=== PATIENT | male | born 1985 | race Caucasian/White ===

== ENCOUNTER → 2018-07-25 08:51 | Outpatient (CLI) | payer OTHER, SELFPAY ==
--- NOTE | 2018-07-25 08:59 | XR_ITS ---
EXAM: XR cervical spine 5V HISTORY: ITS.REASON: H/O FX,PAIN,NUMBNESS TO LT ARM ORDERING PHYSICIAN: Jony Conde PATIENT AGE: 33 years COMPARISON: None FINDINGS: There are no previous exams available for comparison. There is an anterior bone plate stabilizing a fused segment of cervical spine from C3-C6. There are 2 screws within the vertebral body of C3 and 2 screws within the vertebral body of C6. There is good alignment and no evidence of fracture. There is mild foraminal narrowing on the right at C4-C5. No cervical ribs or other significant anomalies. IMPRESSION: Prior anterior cervical disc fusion from C3 to C6 with good alignment and mild foraminal narrowing at C5 on the right
== END ==
PROVIDERS: PCP Social Worker; Visit Provider Social Worker
DX: M79.602 Pain in left arm (principal); R20.0 Anesthesia of skin
CPT/HCPCS: 72050

== ENCOUNTER → 2018-08-06 13:11 | Outpatient (CLI) | payer OTHER, SELFPAY ==
--- NOTE | 2018-08-06 13:20 | XR_ITS ---
XR foot wt bearing LT 3V HISTORY: Foot pain ITS.REASON: all 3 views weightbearing ORDERING PHYSICIAN: Nusrat Flores MD PATIENT AGE: 33 years COMPARISON: None FINDINGS: No fracture or dislocation. No lytic or blastic change. There is normal mineralization.. The joint spaces are well-preserved. No significant degenerative/arthritic changes. No erosive changes evident. Flexion deformity second toe IMPRESSION: Flexion deformity second toe otherwise negative
--- NOTE | 2018-08-06 13:20 | XR_ITS ---
XR foot wt bearing RT 3V HISTORY: Foot pain ITS.REASON: all 3 views weightbearing ORDERING PHYSICIAN: Nusrat Flores MD PATIENT AGE: 33 years COMPARISON: None FINDINGS: No fracture or dislocation. No lytic or blastic change. There is normal mineralization.. The joint spaces are well-preserved. No significant degenerative/arthritic changes. No erosive changes evident. Flexion deformity involves the second toe IMPRESSION: Flexion deformity of the second toe otherwise negative
== END ==
PROVIDERS: PCP Social Worker; Visit Provider Orthopaedic Surgery
DX: M79.672 Pain in left foot (principal); M79.671 Pain in right foot
CPT/HCPCS: 73630

== ENCOUNTER 2018-08-06 13:36 | Outpatient (RCR) | payer OTHER, SELFPAY | END 2018-08-06 13:40 | disposition home or self-care (01) | LOC: PT 13:36 | PROVIDERS: Visit Provider Orthopaedic Surgery | DX: S93.602A Unspecified sprain of left foot, initial encounter (principal) ==

== ENCOUNTER → 2018-08-07 11:07 | Outpatient (CLI) | payer OTHER, SELFPAY ==
--- NOTE | 2018-08-07 11:27 | CT_ITS ---
CT foot LT wo con INDICATION: Foot injury with pain ITS.REASON: Lisfranc injury; without contrast ORDERING PHYSICIAN: Nusrat Flores MD PATIENT AGE: 33 years COMPARISON: 08/06/2018 TECHNIQUE: Axial images are obtained without contrast. Sagittal and coronal reformatted images are reviewed as well. All CT scans at the facility use one or more dose reduction, viz: automated exposure control, ma/kV adjustment per patient size (including targeted exams where dose is matched to indication, i.e. head), or iterative reconstruction technique. FINDINGS: There is an oblique fracture involving the base and medial aspect of the second metatarsal. There is mild lateral displacement of the distal fracture fragment by 3 to 4 mm with widening of the space between the base of the first and second metatarsals. That space measures 5 mm. The fracture line is oblique in nature and extends into the articular surface at the base of the second metatarsal. No other fractures are evident. IMPRESSION: Oblique fracture present at the base of the second metatarsal with mild lateral displacement of the distal fracture fragment and widening of the space between the base of the first and second metatarsal consistent with a Lisfranc injury CT of Lisfranc injuries
== END ==
PROVIDERS: PCP Social Worker; Visit Provider Orthopaedic Surgery
DX: S99.922A Unspecified injury of left foot, initial encounter (principal)
CPT/HCPCS: 73700

== ENCOUNTER → 2018-08-21 08:24 | Outpatient (CLI) | payer OTHER, SELFPAY ==
--- NOTE | 2018-08-21 08:29 | XR_ITS ---
XR foot wt bearing LT 3V HISTORY: Follow-up fracture ITS.REASON: pain ORDERING PHYSICIAN: Genesis Davis DPM PATIENT AGE: 33 years COMPARISON: 08/07/2018 FINDINGS: Study is obtained through a cast. Avulsion fractures noted at the base of the second metatarsal medially with mild widening of the first metatarsal interspace as before not significant change. No other significant anomalies are evident. IMPRESSION: Overall no change in the Lisfranc injury at the base of the second metatarsal with mild widening of the first inner metatarsal space
== END ==
PROVIDERS: PCP Social Worker; Visit Provider Podiatrist
DX: M79.672 Pain in left foot (principal); M79.671 Pain in right foot
CPT/HCPCS: 73630

== ENCOUNTER → 2018-09-11 09:23 | Outpatient (CLI) | payer OTHER, SELFPAY ==
--- NOTE | 2018-09-11 09:25 | XR_ITS ---
XR foot wt bearing LT 3V HISTORY: Pain, follow-up fracture ITS.REASON: fracture follow up ORDERING PHYSICIAN: Genesis Davis DPM PATIENT AGE: 33 years COMPARISON: 08/21/2018 FINDINGS: The cast has been removed. Avulsion fracture once again noted base of the second metatarsal with mild widening of the first intermetatarsal space not significant change. IMPRESSION: Interval removal of the cast otherwise no change in the avulsion fracture at the base of the second metatarsal with mild widening of the first intermetatarsal space as previously described
== END ==
PROVIDERS: PCP Social Worker; Visit Provider Podiatrist
DX: S93.622A Sprain of tarsometatarsal ligament of left foot, initial encounter (principal); T14.8XXA Other injury of unspecified body region, initial encounter
CPT/HCPCS: 73630

== ENCOUNTER → 2018-09-12 16:18 | Outpatient (CLI) | payer OTHER, SELFPAY ==
--- NOTE | 2018-09-12 16:25 | MR_ITS ---
MR foot LT wo/w con CLINICAL INDICATION: ITS.REASON: fracture ORDERING PHYSICIAN: Genesis Davis DPM PATIENT AGE: 33 years Comparison: 08/07/2018, 09/11/2018 TECHNIQUE: Routine multiplanar multiecho sequences are performed without and with gadolinium enhancement FINDINGS: Patient has a known fracture at the base of the second metatarsal with widening of the first intermetatarsal space. This fracture is once again noted on the MRI with no bony union apparent. Increased T2 signal present at the base of the second metatarsal at the fracture site. The fracture is oblique in nature and extends into the articular surface at the base of the second metatarsal, intermediate cuneiform space. Evaluation of the Lisfranc ligamentous complex shows fat the dorsal ligament appears to be intact. There does appear to be tear of the interosseous component. The plantar component is not identified and may also be torn. The anterior tibiofibular ligament is not identified and may be torn. The talofibular ligaments appear intact. The deltoid ligament also appears intact. No tendinous abnormalities are evident. IMPRESSION: 1. Mildly displaced intra-articular fracture involves the base of the second metatarsal with no evidence of bony union. 2. There does appear to be tear of the interosseous component of the Lisfranc ligament with also suspected tear of the plantar component of the Lisfranc ligament. The dorsal component does appear to be intact
== END ==
PROVIDERS: PCP Social Worker; Visit Provider Podiatrist
DX: S93.622A Sprain of tarsometatarsal ligament of left foot, initial encounter (principal)
CPT/HCPCS: 73720; A9576

== ENCOUNTER → 2019-05-08 13:21 | Outpatient (CLI) | payer OTHER, SELFPAY ==
--- NOTE | 2019-05-08 13:24 | XR_ITS ---
PROCEDURE: XR CHEST 2V CLINICAL HISTORY: H/O TRAUMA COMPARISON: No exams were available for comparison FINDINGS: The cardiomediastinal silhouette and pulmonary vascularity are within normal limits. The lungs are clear without infiltrates, suspicious nodules, or pleural effusions. No acute bony abnormalities. IMPRESSION: No acute findings. Dictated by: Jaspreet Damon 05/08/2019 13:36 Electronically signed by Jaspreet Damon in [facility] 05/08/2019 13:36
== END ==
PROVIDERS: PCP Social Worker; Visit Provider Social Worker
DX: Z87.828 Personal history of other (healed) physical injury and trauma (principal)
CPT/HCPCS: 71046

== ENCOUNTER 2019-08-06 09:30 | Outpatient (RCR) | payer OTHER, SELFPAY | END 2019-08-06 09:35 | disposition home or self-care (01) | LOC: PT 09:30 | PROVIDERS: PCP Social Worker; Visit Provider Social Worker | DX: R07.89 Other chest pain (principal) | CPT/HCPCS: 97035; 97140; 97163; 97164 ==

== ENCOUNTER 2020-05-17 16:56 | Emergency (ER) | payer OTHER, SELFPAY ==
--- NOTE | 2020-05-17 18:11 | XR_ITS ---
PROCEDURE: XR CHEST PORTABLE CLINICAL HISTORY: pos covid Cough, Covid19 positive COMPARISON: CR XR CHEST 2V from 05/08/2019 FINDINGS: The cardiomediastinal silhouette and pulmonary vascularity are within normal limits. Faint opacities noted in the right upper lobe at the 2nd interspace anteriorly and in the left midlung overlying the 4th rib anteriorly. Possibly due to developing areas of infiltrate or even pulmonary nodular opacities. Follow-up suggested. No acute bony abnormalities. IMPRESSION: Faint bilateral opacities which could be due to developing pneumonia. Suggest follow-up as developing nodular lesions are also considered. Dictated by: Nahum Shea MD 05/18/2020 05:39 Nahum Shea MD in [facility] 05/18/2020 05:39
[2020-05-17 18:30] VITALS: BP 142/98; PULSE 87; RESP 19; TEMP 36.8; O2SAT 98; BMI 30.4
--- NOTE | 2020-05-17 18:44 | HMH.EDUTC ---
[facility] [place] Clinical Impression: Sinusitis Qualifiers: Sinusitis location: unspecified location Chronicity: unspecified Qualified Code(s): J32.9 - Chronic sinusitis, unspecified Disposition: Home, Self-Care Condition on Discharge: Good Instructions: Sinusitis, DI for Sinusitis, Azithromycin Additional Instructions: *Monitor Temp, Over the counter Motrin or Tylenol as directed/as needed Tylenol every 4 hours and Motrin every 6 hours (as long as your family doctor has told you that you can take it) for fever or pain. and straight to ER if unable to lower temp less than 101.0 after medication given *Warm salt water gargles may help to soothe the throat *Throat Lozenges *Warm fluids like tea with honey may help to soothe the throat *Sleep elevated *Humidifier/Vaporizer Follow up IMMEDIATELY for new or worsening symptoms or no Noticeable improvement over the next 48-72 hours. 911 for difficulty breathing or swallowing You were tested for today for COVID19 your test result should be back in the next 24-48 hours, you may call to the [facility] to see if your test results are back in the next 48 hours [phone] [facility] hours are 9am-9pm You was given a handout with instructions for Self Quarantine and Self isolation for while you wait on test results and what to do if they are positive If you are positive the Health Dept will be contacting you also Prescriptions: dexAMETHasone [Dexamethasone] 2 mg PO DAILY 5 Days #5 tab Transmission Status: Received by [facility] #[id number] Azithromycin [Z-Luis A 250mg Tab] 250 mg PO DIRECTED #6 tab Transmission Status: Received by [facility] #[id number] Referrals: Jony Conde [Primary Care Provider] - As needed Time of Disposition: 18:53 Medical Decision Making - Kirstofer Inquiry Pt receiving controlled substance: No Kristofer was queried for this patient: No Vital Signs: 05/17/20 18:30 05/17/20 18:59 Temperature 98.3 F 98.3 F Temperature Source Oral Pulse Rate 87 Pulse Rate [Right Brachial] 87 Respiratory Rate 19 19 Blood Pressure 142/98 H Blood Pressure [Right Arm] 142/98 H Blood Pressure Mean [Right Arm] 112 Blood Pressure Source [Right Arm] Automatic Cuff Blood Pressure Position [Right Arm] Sitting 02 Sat by Pulse Oximetry 98 Oxygen Delivery Method Room Air Orders (Tests/Meds): ORDERS Category Date Time Status Portable CXR [XR chest portable] Stat Exams 05/17/20 18:11 Taken - Radiology Data #1 Image(s): Chest Image Reviewed: Yes I reviewed the patient's radiology image w/the ED provider Preliminary Findings: Normal/NAD Medical Decision Narrative: Medication discussed with Oneil [facility] [place] - General Stated complaint: COVID TEST, Cough, chest congestion Time Seen by Provider: 05/17/20 18:44 Mode of Arrival: Ambulatory Source of Information: Patient Limitations: No Limitations Description of Symptoms (Recalled from Triage Doc. by RN): PATIENT C/O COUGH CONGESTION X 1 WEEK. TESTED POSITIVE FOR COVID ON 05/02. HEENT Symptoms (Recalled from RN notes): No Resp Symptoms (Recalled from RN notes): No Skin Symptoms (Recalled from RN notes): No MS Symptoms (Recalled from RN notes): No Functional Status (Recalled from RN notes): WNL - History of Present Illness Provider Complaint: Patient states that he recently tested positive for COVID States that he has had worsening sinus pain and pressure with yellowish colored drainage and feels like it is trying to move more into his chest Due to having COVID he was worried that it may turn into COVID pnemonia so he come in to get checked and get checked for sinus pain and pressure - Related Data Home Medications Medication Instructions Recorded Confirmed atorvastatin 10 mg tablet PO 30 Days #30 tab 08/21/18 09/11/18 losartan 100 mg tablet PO 30 Days #30 tab 08/21/18 09/11/18 Previous Rx's Medication Instructions Recorded diclofenac sodium 75 mg 75 mg PO BID #30 tab 02/06/19 tablet,d
[2020-05-17 18:59] VITALS: BP 142/98; PULSE 87; RESP 19; TEMP 36.8; O2SAT 98
== END 2020-05-17 19:00 | disposition home or self-care (01) ==
PROVIDERS: Emergency Provider Nurse Practitioner; PCP Social Worker
DX: J32.9 Chronic sinusitis, unspecified (principal); U07.1 COVID-19; I10 Essential (primary) hypertension; E78.5 Hyperlipidemia, unspecified; Z79.899 Other long term (current) drug therapy
CPT/HCPCS: 71045; 99202; G0463

== ENCOUNTER → 2020-09-17 15:26 | Outpatient (CLI) | payer OTHER, SELFPAY | PROVIDERS: PCP Social Worker; Visit Provider Social Worker | DX: G47.33 Obstructive sleep apnea (adult) (pediatric) (principal) | CPT/HCPCS: 95806 ==

== ENCOUNTER 2020-11-03 08:59 | Emergency (ER) | payer OTHER, SELFPAY ==
[2020-11-03 09:00] VITALS: BP 139/92; PULSE 87; RESP 21; TEMP 36.6; O2SAT 97; BMI 31.0
[2020-11-03 09:20] LABS: Adenovirus,PCR Not Detected (NotDetected); Bordetella Pertussis Not Detected (NotDetected); Chlamydophila Pneumoniae, PCR Not Detected (NotDetected); Coronavirus 19, PCR Not Detected (NotDetected); Coronavirus 229E Not Detected (NotDetected); Coronavirus NL63 Not Detected (NotDetected); Coronavirus OC43 Not Detected (NotDetected); Coronovirus HKU1,PCR Not Detected (NotDetected); Human Metapneumovirus Not Detected (NotDetected); Influenza A, PCR Not Detected (NotDetected); Influenza AH1, 2009 Not Detected (NotDetected); Influenza AH1, PCR Not Detected (NotDetected); Influenza AH3,PCR Not Detected (NotDetected); Influenza B, PCR Not Detected (NotDetected); Mycoplasma Pneumoniae, PCR Not Detected (NotDetected); Parainfluenza 1, PCR Not Detected (NotDetected); Parainfluenza 2, PCR Not Detected (NotDetected); Parainfluenza 3, PCR Not Detected (NotDetected); Parainfluenza 4, PCR Not Detected (NotDetected); Respiratory Syncytial Virus Not Detected (NotDetected); Rhinovirus/Enterovirus Not Detected (NotDetected)
--- NOTE | 2020-11-03 09:24 | HMH.EDUTC ---
[facility] [place] Clinical Impression: Sinusitis Qualifiers: Sinusitis location: unspecified location Chronicity: acute Recurrence: non-recurrent Qualified Code(s): J01.90 - Acute sinusitis, unspecified Otitis media Qualifiers: Otitis media type: suppurative Chronicity: acute Laterality: bilateral Recurrence: non-recurrent Spontaneous tympanic membrane rupture: without spontaneous rupture Qualified Code(s): H66.003 - Acute suppurative otitis media without spontaneous rupture of ear drum, bilateral Disposition: Home, Self-Care Condition on Discharge: Good Instructions: Middle Ear Infection, DI for Sinusitis, Preventing the Spread of Coronavirus Discharge Instructions Additional Instructions: Drink plenty of fluids. Take tylenol or ibuprofen for pain or fever. Take the medications as directed. Follow up with your regular doctor. GO TO THE ER FOR ANY WORSENING SYMPTOMS Prescriptions: Ondansetron [Zofran 4mg ODT] 4 mg PO Q8HP PRN #12 tab.rapdis PRN Reason: Nausea Transmission Status: Received by [facility] # methylPREDNISolone [Medrol] 4 mg PO DIRECTED 6 Days #21 tab.ds.pk Transmission Status: Received by [facility] # Azithromycin [Z-Luis A 250mg Tab*] 250 mg PO UD DOSE PK #6 tab Transmission Status: Received by [facility] # Referrals: Jony Conde [Primary Care Provider] - Forms: Work/School Release Time of Disposition: 09:32 Medical Decision Making - Medical Records Medical records reviewed: No: I reviewed the patient's medical records. - Kristofer Inquiry Pt receiving controlled substance: No Vital Signs: 11/03/20 09:00 11/03/20 09:33 Temperature 97.9 F 97.9 F Temperature Source Oral Pulse Rate 87 Pulse Rate [Right Brachial] 87 Respiratory Rate 21 21 Blood Pressure 139/92 H Blood Pressure [Right Arm] 139/92 H Blood Pressure Mean [Right Arm] 107 Blood Pressure Source [Right Arm] Automatic Cuff Blood Pressure Position [Right Arm] Sitting 02 Sat by Pulse Oximetry 97 Oxygen Delivery Method Room Air - Lab Data Lab Results 11/03/20 09:05: Chlamy pneumoniae PCR Not detected, Adenovirus (PCR) Not detected, B. pertussis DNA (PCR) Not detected, Coronavirus OC43 (PCR) Not detected, Coronavirus HKU1 (PCR) Not detected, Coronavirus 229E (PCR) Not detected, SARS-CoV-2 (PCR) Not detected, Coronavirus NL63 (PCR) Not detected, Human Metapneumovir PCR Not detected, Influenza A (H1) PCR Not detected, Influ A (H1N1/09) PCR Not detected, Influenza A (H3) PCR Not detected, Influenza Type A (PCR) Not detected, Influenza Type B (PCR) Not detected, M. pneumoniae (PCR) Not detected, Parainfluenza 1 (PCR) Not detected, Parainfluenza 2 (PCR) Not detected, Parainfluenza 3 (PCR) Not detected, Parainfluenza 4 (PCR) Not detected, RSV (PCR) Not detected, Entero/Rhino (PCR) Not detected [facility] - General Stated complaint: nausea, muscle pain Time Seen by Provider: 11/03/20 09:24 Mode of Arrival: Ambulatory Source of Information: Patient Limitations: No Limitations Description of Symptoms (Recalled from Triage Doc. by RN): PATIENT C/O MOTION SICKNESS, TINNITUS, SOA, DIARRHEA, RUNNY NOSE, AND BODY ACHES X 3 DAYS. STATES HE FEELS SIMILAR TO HOW DID WHEN HE PREVIOUSLY HAD COVID. RECENT TRAVEL TO [place] VIA PLANE HEENT Symptoms (Recalled from RN notes): Yes Resp Symptoms (Recalled from RN notes): Yes Skin Symptoms (Recalled from RN notes): No MS Symptoms (Recalled from RN notes): No Functional Status (Recalled from RN notes): WNL - History of Present Illness Provider Complaint: He states that for the past 4 days he has had bilateral ear pain and pressure. He has also had diarrhea and nausea. He had covid about 6 months ago and he states that he feels a lot like he did then. He denies any shortness of breath and chest pain. - Related Data Home Medications Medication Instructions Recorded Confirmed atorvastatin 10 mg tablet 5 mg PO DAILY 30 Days
[2020-11-03 09:33] VITALS: BP 139/92; PULSE 87; RESP 21; TEMP 36.6; O2SAT 97
== END 2020-11-03 09:36 | disposition home or self-care (01) ==
LOC: UTC 09:02
PROVIDERS: Emergency Provider Nurse Practitioner Family; PCP Social Worker
DX: J01.90 Acute sinusitis, unspecified (principal); H66.003 Acute suppurative otitis media without spontaneous rupture of ear drum, bilateral; I10 Essential (primary) hypertension; Z20.822 Contact with and (suspected) exposure to COVID-19; E78.5 Hyperlipidemia, unspecified; Z79.899 Other long term (current) drug therapy
CPT/HCPCS: 87581; 87633; 87798; 99202; G0463

== ENCOUNTER 2020-12-01 14:45 | Emergency (ER) | payer OTHER, SELFPAY ==
[2020-12-01 14:50] VITALS: BP 169/104; PULSE 94; RESP 16; TEMP 36.6; O2SAT 100; BMI 31.0
--- NOTE | 2020-12-01 15:06 | HMH.EDUTC ---
[facility] [place] Clinical Impression: Vertigo Serous otitis media Qualifiers: Chronicity: acute Laterality: bilateral Recurrence: non-recurrent Qualified Code(s): H65.03 - Acute serous otitis media, bilateral Disposition: Home, Self-Care Condition on Discharge: Good Instructions: Middle Ear Infection Additional Instructions: Drink plenty of fluids. Take tylenol or ibuprofen for pain or fever. Take the medications as directed. Follow up with your regular doctor. GO TO THE ER FOR ANY WORSENING SYMPTOMS Prescriptions: Meclizine HCl [Antivert 25mg tablet] 25 mg PO Q6HP PRN #30 tab PRN Reason: Dizziness Transmission Status: Received by [facility] methylPREDNISolone [Medrol] 4 mg PO DIRECTED 6 Days #21 tab.ds.pk Transmission Status: Received by [facility] Referrals: Jony Conde [Primary Care Provider] - Forms: Work/School Release Time of Disposition: 15:15 Medical Decision Making - Medical Records Medical records reviewed: No: I reviewed the patient's medical records. - Kristofer Inquiry Pt receiving controlled substance: No Vital Signs: 12/01/20 14:50 12/01/20 15:16 Temperature 97.8 F 97.8 F Temperature Source Oral Pulse Rate 94 H Pulse Rate [Left] 94 H Respiratory Rate 16 16 Blood Pressure 169/104 H Blood Pressure [Right Arm] 169/104 H Blood Pressure Mean [Right Arm] 125 Blood Pressure Source [Right Arm] Automatic Cuff 02 Sat by Pulse Oximetry 100 [facility] [place]PI - General Stated complaint: motion sickness Time Seen by Provider: 12/01/20 15:06 Mode of Arrival: Ambulatory Source of Information: Patient Limitations: No Limitations Description of Symptoms (Recalled from Triage Doc. by RN): pt c/o of bilateral ear popping and motion sickness. pt states he had an ear infection when the same thing happened about a month ago. HEENT Symptoms (Recalled from RN notes): Yes (pt c/o dizziness and bilateral ear aches) Resp Symptoms (Recalled from RN notes): No Skin Symptoms (Recalled from RN notes): No MS Symptoms (Recalled from RN notes): No Functional Status (Recalled from RN notes): na - History of Present Illness Provider Complaint: He states that since earlier today, he has had dizziness and popping of his ears. He denies any ear pain. He had similar symptoms about a month ago. He took antibiotics and steroids then and he got better. - Related Data Home Medications Medication Instructions Recorded Confirmed atorvastatin 10 mg tablet 5 mg PO DAILY 30 Days #30 tab 08/21/18 11/03/20 losartan 100 mg tablet 100 mg PO DAILY 30 Days #30 tab 08/21/18 11/03/20 amlodipine 2.5 mg tablet 2.5 mg PO DAILY 10/20/20 11/03/20 omeprazole 20 mg tablet,delayed 20 mg PO DAILY 10/20/20 11/03/20 release testosterone cypionate 200 mg/mL 200 mg IM WEEKLY each 10/20/20 11/03/20 intramuscular kit Previous Rx's Medication Instructions Recorded Azithromycin [Z-Luis A 250mg Tab*] 250 mg PO UD DOSE PK #6 tab 11/03/20 Ondansetron [Zofran 4mg ODT] 4 mg PO Q8HP PRN #12 tab.rapdis 11/03/20 methylPREDNISolone [Medrol] 4 mg PO DIRECTED 6 Days #21 11/03/20 tab.ds.pk Meclizine HCl [Antivert 25mg 25 mg PO Q6HP PRN #30 tab 12/01/20 tablet] methylPREDNISolone [Medrol] 4 mg PO DIRECTED 6 Days #21 12/01/20 tab.ds.pk Allergies Allergy/AdvReac Type Severity Reaction Status Date / Time No Known Allergies Allergy Verified 12/01/20 14:48 - Worker's Comp Is this a Worker's Comp case?: No [facility] History - Hepatitis A Screen Drug use history?: No High risk sexual behaviors?: No History of sexually transmitted infection?: No Currently employed?: No Childcare worker?: No Do you have indoor plumbing?: Yes Do you have electricity?: Yes Attestation statement:: This patient has been screened for Hepatitis A risk factors. I have reviewed the patient's past medical history: Yes Medical History: Reports:: Hyperlipidemia, Hypertension Other Surgeries: Yes: Othe
[2020-12-01 15:16] VITALS: BP 169/104; PULSE 94; RESP 16; TEMP 36.6; O2SAT 99
== END 2020-12-01 15:18 | disposition home or self-care (01) ==
PROVIDERS: Emergency Provider Nurse Practitioner Family; PCP Social Worker
DX: H65.03 Acute serous otitis media, bilateral (principal); I10 Essential (primary) hypertension; E78.5 Hyperlipidemia, unspecified
CPT/HCPCS: 99202; G0463

== ENCOUNTER → 2021-05-31 14:31 | Outpatient (CLI) | payer OTHER, SELFPAY | PROVIDERS: PCP Social Worker; Visit Provider Nurse Practitioner | DX: U07.1 COVID-19 (principal) | CPT/HCPCS: C9803; U0003; U0005 ==

== ENCOUNTER → 2022-07-14 08:33 | Outpatient (CLI) | payer OTHER, SELFPAY ==
[2022-07-14 09:35] LABS: INR 1.43 (0.9-1.1); Prothrombin Time 15.1 seconds (10.1-12.5)
[2022-07-14 10:11] LABS: Basophils # 0.1 K/mm3 (0-0.2); Basophils % 1.1 % (0.1-2.0); Eosinophils # 0.2 K/mm3 (0.0-0.4); Eosinophils % 2.3 % (0.1-12.0); Hematocrit 37.6 % (42.0-52.0); Lymphocytes # 0.4 K/mm3 (0.7-4.5); Lymphocytes % 4.9 % (10-50); Mean Corpuscular HGB Conc 31.9 g/dL (31.8-35.4); Mean Corpuscular Hemoglobin 35.8 pg (27.0-31.2); Mean Corpuscular Volume 112.5 fl (80-94); Mean Platelet Volume 9.6 fl (7.4-10.4); Monocytes # 0.8 K/mm3 (0.1-1.0); Monocytes % 9.7 % (1.7-9.3); Neutrophils # 6.7 K/mm3 (1.8-7.8); Platelet Count 199 K/mm3 (142-424); Red Blood Count 3.34 M/mm3 (4.60-6.20); Red Cell Distribution Width 20.9 % (11.5-17.5); White Blood Count 8.1 K/mm3 (4.8-10.8)
[2022-07-14 10:12] LABS: Alanine Aminotransferase 44 U/L (12-78); Albumin Level 3.4 g/dl (3.5-5.0); Alkaline Phosphatase 127 U/L (38-126); Anion Gap 11.2 mEq/L (5-15); Aspartate Amino Transferase 94 U/L (17-59); Blood Urea Nitrogen 19 mg/dl (9-20); Calcium 9.5 mg/dl (8.4-10.2); Carbon Dioxide 24 mmol/L (22.0-30.0); Chloride 104 mmol/L (98-107); Estimated Glomerular Filt Rate 56 ml/min (>60); GFR (African American) 68 ML/MIN (>60); Globulin 3.5 g/dL (1.3-3.2); Glucose 92 mg/dl (74-100); Potassium 4.2 mmoL/L (3.5-5.1); Sodium 135 mmol/L (136-145); Total Protein,Serum 6.9 g/dl (6.3-8.2)
== END ==
PROVIDERS: PCP Social Worker; Visit Provider Nurse Practitioner
DX: K70.30 Alcoholic cirrhosis of liver without ascites (principal)
CPT/HCPCS: 36415; 80053; 85025; 85610

== ENCOUNTER → 2022-08-08 08:36 | Outpatient (CLI) | payer OTHER, SELFPAY ==
[2022-08-08 09:14] LABS: Hematocrit 36.9 % (42.0-52.0); Mean Corpuscular HGB Conc 32.6 g/dL (31.8-35.4); Mean Corpuscular Hemoglobin 34.6 pg (27.0-31.2); Mean Corpuscular Volume 106.3 fl (80-94); Platelet Count 129 K/mm3 (142-424); Red Blood Count 3.47 M/mm3 (4.60-6.20); Red Cell Distribution Width 18.5 % (11.5-17.5); White Blood Count 7.2 K/mm3 (4.8-10.8)
[2022-08-08 09:23] LABS: INR 1.34 (0.9-1.1); Prothrombin Time 14.2 seconds (10.1-12.5)
[2022-08-08 09:46] LABS: Alanine Aminotransferase 25 U/L (12-78); Albumin Level 3.5 g/dl (3.5-5.0); Albumin/Globulin Ratio 1.1 (1.1-1.8); Alkaline Phosphatase 151 U/L (38-126); Anion Gap 12.9 mEq/L (5-15); Aspartate Amino Transferase 53 U/L (17-59); Bilirubin,Total 3.1 mg/dl (0.2-1.3); Blood Urea Nitrogen 14 mg/dl (9-20); Calcium 8.9 mg/dl (8.4-10.2); Carbon Dioxide 25 mmol/L (22.0-30.0); Chloride 105 mmol/L (98-107); Estimated Glomerular Filt Rate 56 ml/min (>60); GFR (African American) 68 ML/MIN (>60); Globulin 3.2 g/dL (1.3-3.2); Glucose 97 mg/dl (74-100); Potassium 3.9 mmoL/L (3.5-5.1); Sodium 139 mmol/L (136-145); Total Protein,Serum 6.7 g/dl (6.3-8.2)
== END ==
PROVIDERS: PCP Social Worker; Visit Provider Student in an Organized Health Care Education/Training Program
DX: K72.90 Hepatic failure, unspecified without coma (principal)
CPT/HCPCS: 36415; 80053; 85014; 85018; 85048; 85049; 85610; 85730

== ENCOUNTER → 2022-08-18 09:42 | Outpatient (CLI) | payer OTHER, SELFPAY ==
[2022-08-18 09:59] LABS: Basophils % 0.8 % (0.1-2.0); Eosinophils # 0.1 K/mm3 (0.0-0.4); Hematocrit 38.8 % (42.0-52.0); Hemoglobin 12.5 g/dL (14.1-18.0); Lymphocytes # 1.2 K/mm3 (0.7-4.5); Lymphocytes % 21.7 % (10-50); Mean Corpuscular HGB Conc 32.2 g/dL (31.8-35.4); Mean Corpuscular Hemoglobin 34.2 pg (27.0-31.2); Mean Corpuscular Volume 106.2 fl (80-94); Mean Platelet Volume 8.9 fl (7.4-10.4); Monocytes # 0.4 K/mm3 (0.1-1.0); Monocytes % 6.8 % (1.7-9.3); Neutrophils # 3.8 K/mm3 (1.8-7.8); Neutrophils % 68.7 % (37.0-80.0); Platelet Count 132 K/mm3 (142-424); Red Blood Count 3.66 M/mm3 (4.60-6.20); Red Cell Distribution Width 17.7 % (11.5-17.5); White Blood Count 5.5 K/mm3 (4.8-10.8)
[2022-08-18 10:12] LABS: INR 1.19 (0.9-1.1); Prothrombin Time 12.7 seconds (10.1-12.5)
[2022-08-18 10:20] LABS: Chloride 106 mmol/L (98-107)
[2022-08-18 10:21] LABS: Potassium 3.7 mmoL/L (3.5-5.1); Sodium 141 mmol/L (136-145)
[2022-08-18 10:23] LABS: Alanine Aminotransferase 28 U/L (12-78); Aspartate Amino Transferase 56 U/L (17-59); Blood Urea Nitrogen 28 mg/dl (9-20); Estimated Glomerular Filt Rate 56 ml/min (>60); GFR (African American) 68 ML/MIN (>60)
[2022-08-18 10:24] LABS: Albumin Level 3.8 g/dl (3.5-5.0); Albumin/Globulin Ratio 1.2 (1.1-1.8); Alkaline Phosphatase 136 U/L (38-126); Anion Gap 12.7 mEq/L (5-15); Bilirubin,Total 3.2 mg/dl (0.2-1.3); Calcium 10.9 mg/dl (8.4-10.2); Carbon Dioxide 26 mmol/L (22.0-30.0); Globulin 3.3 g/dL (1.3-3.2); Glucose 94 mg/dl (74-100); Total Protein,Serum 7.1 g/dl (6.3-8.2)
[2022-08-19 08:37] LABS: AFP, Tumor Marker 5.3 ng/mL (0.0-6.9)
== END ==
PROVIDERS: PCP Social Worker; Visit Provider Nurse Practitioner
DX: K70.30 Alcoholic cirrhosis of liver without ascites (principal)
CPT/HCPCS: 36415; 80053; 82105; 85025; 85610

== ENCOUNTER → 2022-08-22 15:43 | Outpatient (CLI) | payer OTHER, SELFPAY ==
[2022-08-22 16:49] LABS: Hematocrit 35.9 % (42.0-52.0); Hemoglobin 11.6 g/dL (14.1-18.0); Mean Corpuscular HGB Conc 32.3 g/dL (31.8-35.4); Mean Corpuscular Hemoglobin 33.4 pg (27.0-31.2); Mean Corpuscular Volume 103.4 fl (80-94); Platelet Count 112 K/mm3 (142-424); Red Blood Count 3.47 M/mm3 (4.60-6.20); Red Cell Distribution Width 17.3 % (11.5-17.5); White Blood Count 5.9 K/mm3 (4.8-10.8)
[2022-08-22 17:01] LABS: Chloride 102 mmol/L (98-107); Potassium 4.5 mmoL/L (3.5-5.1); Sodium 138 mmol/L (136-145)
[2022-08-22 17:03] LABS: Alanine Aminotransferase 26 U/L (12-78); Aspartate Amino Transferase 55 U/L (17-59); Blood Urea Nitrogen 33 mg/dl (9-20); Estimated Glomerular Filt Rate 45 ml/min (>60); GFR (African American) 55 ML/MIN (>60)
[2022-08-22 17:04] LABS: Albumin Level 3.7 g/dl (3.5-5.0); Albumin/Globulin Ratio 1.2 (1.1-1.8); Alkaline Phosphatase 112 U/L (38-126); Anion Gap 13.5 mEq/L (5-15); Bilirubin,Total 3.4 mg/dl (0.2-1.3); Calcium 10.5 mg/dl (8.4-10.2); Carbon Dioxide 27 mmol/L (22.0-30.0); Globulin 3.1 g/dL (1.3-3.2); Glucose 92 mg/dl (74-100); Prothrombin Time 14.8 seconds (10.1-12.5); Total Protein,Serum 6.8 g/dl (6.3-8.2)
== END ==
PROVIDERS: PCP Social Worker; Visit Provider Student in an Organized Health Care Education/Training Program
DX: K72.90 Hepatic failure, unspecified without coma (principal)
CPT/HCPCS: 36415; 80053; 85014; 85018; 85048; 85049; 85610

== ENCOUNTER → 2022-08-23 10:23 | Outpatient (CLI) | payer OTHER, SELFPAY ==
[2022-08-23 10:59] LABS: Ammonia 109 umol/L (9-30)
[2022-08-23 11:01] LABS: Activated Partial Thrombo Time 31.6 seconds (22.8-30.6)
== END ==
PROVIDERS: PCP Social Worker; Visit Provider Student in an Organized Health Care Education/Training Program
DX: K72.90 Hepatic failure, unspecified without coma (principal)
CPT/HCPCS: 82140; 85730

== ENCOUNTER 2022-08-31 11:28 | Outpatient (CLI) | payer OTHER, SELFPAY ==
[2022-08-31] VITALS (10 sets, daily range): BP systolic 111–137; BP diastolic 60–95; PULSE 84–92; RESP 16–18; TEMP 36.4; O2SAT 99
== END 2022-08-31 16:36 | disposition home or self-care (01) ==
LOC: INF 11:31
PROVIDERS: PCP Social Worker; Visit Provider Student in an Organized Health Care Education/Training Program
DX: N17.9 Acute kidney failure, unspecified (principal)
CPT/HCPCS: 96365; 96366; P9047

== ENCOUNTER → 2022-09-04 11:14 | Outpatient (CLI) | payer OTHER, SELFPAY ==
[2022-09-04 12:49] LABS: Basophils % 0.3 % (0.1-2.0); Eosinophils # 0.1 K/mm3 (0.0-0.4); Eosinophils % 2.5 % (0.1-12.0); Hematocrit 35.4 % (42.0-52.0); Hemoglobin 11.5 g/dL (14.1-18.0); Lymphocytes # 0.9 K/mm3 (0.7-4.5); Lymphocytes % 19.9 % (10-50); Mean Corpuscular HGB Conc 32.5 g/dL (31.8-35.4); Mean Corpuscular Hemoglobin 34.1 pg (27.0-31.2); Mean Corpuscular Volume 104.8 fl (80-94); Mean Platelet Volume 8.7 fl (7.4-10.4); Monocytes # 0.3 K/mm3 (0.1-1.0); Monocytes % 6.6 % (1.7-9.3); Neutrophils # 3.3 K/mm3 (1.8-7.8); Neutrophils % 70.7 % (37.0-80.0); Platelet Count 94 K/mm3 (142-424); Red Blood Count 3.38 M/mm3 (4.60-6.20); Red Cell Distribution Width 16.5 % (11.5-17.5); White Blood Count 4.7 K/mm3 (4.8-10.8)
[2022-09-04 12:54] LABS: INR 1.33 (0.9-1.1); Prothrombin Time 14.1 seconds (10.1-12.5)
[2022-09-04 12:58] LABS: Alanine Aminotransferase 26 U/L (12-78); Albumin Level 3.6 g/dl (3.5-5.0); Albumin/Globulin Ratio 1.3 (1.1-1.8); Alkaline Phosphatase 106 U/L (38-126); Anion Gap 12.1 mEq/L (5-15); Aspartate Amino Transferase 63 U/L (17-59); Bilirubin,Total 3.1 mg/dl (0.2-1.3); Blood Urea Nitrogen 21 mg/dl (9-20); Calcium 10.4 mg/dl (8.4-10.2); Carbon Dioxide 26 mmol/L (22.0-30.0); Chloride 107 mmol/L (98-107); Estimated Glomerular Filt Rate 61 ml/min (>60); GFR (African American) 74 ML/MIN (>60); Globulin 2.8 g/dL (1.3-3.2); Glucose 104 mg/dl (74-100); Potassium 4.1 mmoL/L (3.5-5.1); Sodium 141 mmol/L (136-145); Total Protein,Serum 6.4 g/dl (6.3-8.2)
== END ==
PROVIDERS: PCP Social Worker; Visit Provider Student in an Organized Health Care Education/Training Program
DX: K72.90 Hepatic failure, unspecified without coma (principal)
CPT/HCPCS: 36415; 80053; 85025; 85610; 85730

== ENCOUNTER → 2022-09-11 13:18 | Outpatient (CLI) | payer OTHER, SELFPAY ==
[2022-09-11 13:46] LABS: Hematocrit 33.3 % (42.0-52.0); Mean Corpuscular HGB Conc 33.1 g/dL (31.8-35.4); Mean Corpuscular Hemoglobin 33.7 pg (27.0-31.2); Platelet Count 95 K/mm3 (142-424); Red Blood Count 3.27 M/mm3 (4.60-6.20); White Blood Count 4.8 K/mm3 (4.8-10.8)
[2022-09-11 13:55] LABS: INR 1.43 (0.9-1.1); Prothrombin Time 15.1 seconds (10.1-12.5)
[2022-09-11 14:12] LABS: Chloride 104 mmol/L (98-107); Potassium 4.2 mmoL/L (3.5-5.1); Sodium 138 mmol/L (136-145)
[2022-09-11 14:15] LABS: Alanine Aminotransferase 21 U/L (12-78); Albumin Level 3.5 g/dl (3.5-5.0); Albumin/Globulin Ratio 1.3 (1.1-1.8); Alkaline Phosphatase 114 U/L (38-126); Anion Gap 16.2 mEq/L (5-15); Aspartate Amino Transferase 50 U/L (17-59); Bilirubin,Total 3.2 mg/dl (0.2-1.3); Blood Urea Nitrogen 18 mg/dl (9-20); Carbon Dioxide 22 mmol/L (22.0-30.0); Estimated Glomerular Filt Rate 61 ml/min (>60); GFR (African American) 74 ML/MIN (>60); Globulin 2.7 g/dL (1.3-3.2); Total Protein,Serum 6.2 g/dl (6.3-8.2)
[2022-09-11 14:16] LABS: Calcium 10.2 mg/dl (8.4-10.2); Glucose 94 mg/dl (74-100)
== END ==
PROVIDERS: Visit Provider Student in an Organized Health Care Education/Training Program
DX: K72.90 Hepatic failure, unspecified without coma (principal)
CPT/HCPCS: 36415; 80053; 85014; 85018; 85048; 85049; 85610; 85730

== ENCOUNTER → 2022-09-18 14:39 | Outpatient (CLI) | payer OTHER, SELFPAY ==
[2022-09-18 15:52] LABS: Activated Partial Thrombo Time 32.4 seconds (22.8-30.6); INR 1.32 (0.9-1.1)
[2022-09-18 15:58] LABS: Chloride 105 mmol/L (98-107); Sodium 139 mmol/L (136-145)
[2022-09-18 15:59] LABS: Potassium 3.9 mmoL/L (3.5-5.1)
[2022-09-18 16:01] LABS: Alanine Aminotransferase 20 U/L (12-78); Alkaline Phosphatase 124 U/L (38-126); Aspartate Amino Transferase 36 U/L (17-59); Bilirubin,Total 2.6 mg/dl (0.2-1.3); Blood Urea Nitrogen 17 mg/dl (9-20); Estimated Glomerular Filt Rate 56 ml/min (>60); GFR (African American) 68 ML/MIN (>60)
[2022-09-18 16:02] LABS: Albumin Level 3.2 g/dl (3.5-5.0); Albumin/Globulin Ratio 1.2 (1.1-1.8); Anion Gap 16.9 mEq/L (5-15); Calcium 9.9 mg/dl (8.4-10.2); Carbon Dioxide 21 mmol/L (22.0-30.0); Globulin 2.6 g/dL (1.3-3.2); Glucose 94 mg/dl (74-100); Total Protein,Serum 5.8 g/dl (6.3-8.2)
[2022-09-19 09:32] LABS: Hematocrit 33.6 % (42.0-52.0); Hemoglobin 10.9 g/dL (14.1-18.0); Mean Corpuscular HGB Conc 32.4 g/dL (31.8-35.4); Mean Corpuscular Hemoglobin 33.7 pg (27.0-31.2); Mean Corpuscular Volume 103.8 fl (80-94); Platelet Count 104 K/mm3 (142-424); Red Blood Count 3.24 M/mm3 (4.60-6.20); Red Cell Distribution Width 15.7 % (11.5-17.5); White Blood Count 4.9 K/mm3 (4.8-10.8)
== END ==
PROVIDERS: PCP Social Worker; Visit Provider Student in an Organized Health Care Education/Training Program
DX: K72.90 Hepatic failure, unspecified without coma (principal)
CPT/HCPCS: 36415; 80053; 83036; 85014; 85018; 85048; 85049; 85610; 85730

== ENCOUNTER → 2022-10-06 11:09 | Outpatient (CLI) | payer OTHER, SELFPAY ==
[2022-10-06 11:51] LABS: Basophils % 0.5 % (0.1-2.0); Eosinophils # 0.1 K/mm3 (0.0-0.4); Eosinophils % 2.9 % (0.1-12.0); Hematocrit 34.1 % (42.0-52.0); Hemoglobin 11.3 g/dL (14.1-18.0); Lymphocytes # 0.8 K/mm3 (0.7-4.5); Lymphocytes % 17.4 % (10-50); Mean Corpuscular HGB Conc 33.1 g/dL (31.8-35.4); Mean Corpuscular Hemoglobin 32.6 pg (27.0-31.2); Mean Corpuscular Volume 98.6 fl (80-94); Mean Platelet Volume 8.2 fl (7.4-10.4); Monocytes # 0.3 K/mm3 (0.1-1.0); Monocytes % 7.9 % (1.7-9.3); Neutrophils # 3.1 K/mm3 (1.8-7.8); Neutrophils % 71.4 % (37.0-80.0); Platelet Count 103 K/mm3 (142-424); Red Blood Count 3.46 M/mm3 (4.60-6.20); White Blood Count 4.3 K/mm3 (4.8-10.8)
[2022-10-06 12:03] LABS: INR 1.25 (0.9-1.1); Prothrombin Time 13.3 seconds (10.1-12.5)
[2022-10-06 12:27] LABS: Alanine Aminotransferase 26 U/L (12-78); Albumin Level 3.4 g/dl (3.5-5.0); Albumin/Globulin Ratio 1.2 (1.1-1.8); Alkaline Phosphatase 216 U/L (38-126); Anion Gap 13.2 mEq/L (5-15); Aspartate Amino Transferase 63 U/L (17-59); Bilirubin,Total 2.8 mg/dl (0.2-1.3); Blood Urea Nitrogen 20 mg/dl (9-20); Calcium 9.6 mg/dl (8.4-10.2); Carbon Dioxide 25 mmol/L (22.0-30.0); Chloride 106 mmol/L (98-107); Estimated Glomerular Filt Rate 61 ml/min (>60); GFR (African American) 74 ML/MIN (>60); Globulin 2.9 g/dL (1.3-3.2); Glucose 96 mg/dl (74-100); Potassium 4.2 mmoL/L (3.5-5.1); Sodium 140 mmol/L (136-145); Total Protein,Serum 6.3 g/dl (6.3-8.2)
== END ==
PROVIDERS: PCP Student in an Organized Health Care Education/Training Program; Visit Provider Student in an Organized Health Care Education/Training Program
DX: K72.90 Hepatic failure, unspecified without coma (principal)
CPT/HCPCS: 36415; 80053; 85025; 85610; 85730

== ENCOUNTER → 2022-10-13 11:40 | Outpatient (CLI) | payer OTHER, SELFPAY ==
[2022-10-13 12:13] LABS: Basophils % 0.3 % (0.1-2.0); Eosinophils # 0.1 K/mm3 (0.0-0.4); Eosinophils % 2.2 % (0.1-12.0); Hematocrit 35.6 % (42.0-52.0); Lymphocytes # 0.9 K/mm3 (0.7-4.5); Lymphocytes % 19.1 % (10-50); Mean Corpuscular Hemoglobin 31.3 pg (27.0-31.2); Mean Corpuscular Volume 101.1 fl (80-94); Monocytes # 0.4 K/mm3 (0.1-1.0); Monocytes % 8.9 % (1.7-9.3); Neutrophils # 3.2 K/mm3 (1.8-7.8); Neutrophils % 69.5 % (37.0-80.0); Platelet Count 94 K/mm3 (142-424); Red Blood Count 3.52 M/mm3 (4.60-6.20); Red Cell Distribution Width 14.9 % (11.5-17.5); White Blood Count 4.6 K/mm3 (4.8-10.8)
[2022-10-13 12:20] LABS: Activated Partial Thrombo Time 31.6 seconds (22.8-30.6); INR 1.26 (0.9-1.1); Prothrombin Time 13.4 seconds (10.1-12.5)
[2022-10-13 12:37] LABS: Alanine Aminotransferase 22 U/L (12-78); Albumin Level 3.3 g/dl (3.5-5.0); Albumin/Globulin Ratio 1.1 (1.1-1.8); Alkaline Phosphatase 116 U/L (38-126); Aspartate Amino Transferase 37 U/L (17-59); Bilirubin,Total 3.2 mg/dl (0.2-1.3); Blood Urea Nitrogen 21 mg/dl (9-20); Calcium 9.7 mg/dl (8.4-10.2); Carbon Dioxide 26 mmol/L (22.0-30.0); Chloride 105 mmol/L (98-107); Estimated Glomerular Filt Rate 56 ml/min (>60); GFR (African American) 68 ML/MIN (>60); Globulin 2.9 g/dL (1.3-3.2); Glucose 95 mg/dl (74-100); Sodium 141 mmol/L (136-145); Total Protein,Serum 6.2 g/dl (6.3-8.2)
== END ==
PROVIDERS: PCP Social Worker; Visit Provider Student in an Organized Health Care Education/Training Program
DX: K72.90 Hepatic failure, unspecified without coma (principal)
CPT/HCPCS: 36415; 80053; 85025; 85610; 85730

== ENCOUNTER → 2022-10-20 09:19 | Outpatient (CLI) | payer OTHER, SELFPAY ==
[2022-10-20 10:19] LABS: Basophils % 0.2 % (0.1-2.0); Eosinophils # 0.1 K/mm3 (0.0-0.4); Eosinophils % 1.8 % (0.1-12.0); Hematocrit 34.3 % (42.0-52.0); Hemoglobin 11.1 g/dL (14.1-18.0); Lymphocytes # 0.8 K/mm3 (0.7-4.5); Mean Corpuscular HGB Conc 32.2 g/dL (31.8-35.4); Mean Corpuscular Hemoglobin 31.1 pg (27.0-31.2); Mean Corpuscular Volume 96.6 fl (80-94); Mean Platelet Volume 8.1 fl (7.4-10.4); Monocytes # 0.4 K/mm3 (0.1-1.0); Monocytes % 9.9 % (1.7-9.3); Neutrophils # 2.8 K/mm3 (1.8-7.8); Neutrophils % 69.2 % (37.0-80.0); Platelet Count 102 K/mm3 (142-424); Red Blood Count 3.56 M/mm3 (4.60-6.20); Red Cell Distribution Width 14.8 % (11.5-17.5)
[2022-10-20 10:35] LABS: Alanine Aminotransferase 19 U/L (12-78); Albumin Level 3.5 g/dl (3.5-5.0); Albumin/Globulin Ratio 1.2 (1.1-1.8); Alkaline Phosphatase 149 U/L (38-126); Anion Gap 15.2 mEq/L (5-15); Aspartate Amino Transferase 37 U/L (17-59); Bilirubin,Total 2.9 mg/dl (0.2-1.3); Blood Urea Nitrogen 20 mg/dl (9-20); Calcium 9.4 mg/dl (8.4-10.2); Carbon Dioxide 24 mmol/L (22.0-30.0); Chloride 105 mmol/L (98-107); Estimated Glomerular Filt Rate 61 ml/min (>60); GFR (African American) 74 ML/MIN (>60); Globulin 2.9 g/dL (1.3-3.2); Glucose 105 mg/dl (74-100); Potassium 4.2 mmoL/L (3.5-5.1); Sodium 140 mmol/L (136-145); Total Protein,Serum 6.4 g/dl (6.3-8.2)
[2022-10-20 13:07] LABS: Activated Partial Thrombo Time 32.7 seconds (22.8-30.6); INR 1.27 (0.9-1.1); Prothrombin Time 13.5 seconds (10.1-12.5)
== END ==
PROVIDERS: PCP Social Worker; Visit Provider Student in an Organized Health Care Education/Training Program
DX: K72.90 Hepatic failure, unspecified without coma (principal)
CPT/HCPCS: 36415; 80053; 85025; 85610; 85730

== ENCOUNTER → 2022-10-27 09:21 | Outpatient (CLI) | payer OTHER, SELFPAY ==
[2022-10-27 10:48] LABS: Hematocrit 34.3 % (42.0-52.0); Hemoglobin 10.9 g/dL (14.1-18.0); Mean Corpuscular HGB Conc 31.9 g/dL (31.8-35.4); Mean Corpuscular Volume 97.3 fl (80-94); Platelet Count 94 K/mm3 (142-424); Red Blood Count 3.53 M/mm3 (4.60-6.20); Red Cell Distribution Width 14.9 % (11.5-17.5); White Blood Count 4.8 K/mm3 (4.8-10.8)
[2022-10-27 10:53] LABS: INR 1.18 (0.9-1.1); Prothrombin Time 12.6 seconds (10.1-12.5)
[2022-10-27 11:14] LABS: Alanine Aminotransferase 22 U/L (12-78); Albumin Level 3.6 g/dl (3.5-5.0); Albumin/Globulin Ratio 1.2 (1.1-1.8); Alkaline Phosphatase 178 U/L (38-126); Anion Gap 15.3 mEq/L (5-15); Aspartate Amino Transferase 41 U/L (17-59); Bilirubin,Total 2.7 mg/dl (0.2-1.3); Blood Urea Nitrogen 15 mg/dl (9-20); Calcium 9.3 mg/dl (8.4-10.2); Carbon Dioxide 26 mmol/L (22.0-30.0); Chloride 104 mmol/L (98-107); Estimated Glomerular Filt Rate 67 ml/min (>60); GFR (African American) 82 ML/MIN (>60); Glucose 85 mg/dl (74-100); Potassium 4.3 mmoL/L (3.5-5.1); Sodium 141 mmol/L (136-145); Total Protein,Serum 6.6 g/dl (6.3-8.2)
== END ==
PROVIDERS: PCP Social Worker; Visit Provider Student in an Organized Health Care Education/Training Program
DX: K72.90 Hepatic failure, unspecified without coma (principal)
CPT/HCPCS: 36415; 80053; 85014; 85018; 85048; 85049; 85610

== ENCOUNTER → 2022-11-03 10:01 | Outpatient (CLI) | payer OTHER, SELFPAY ==
[2022-11-03 10:32] LABS: Basophils % 0.2 % (0.1-2.0); Eosinophils # 0.1 K/mm3 (0.0-0.4); Eosinophils % 1.8 % (0.1-12.0); Hematocrit 34.3 % (42.0-52.0); Hemoglobin 11.1 g/dL (14.1-18.0); Lymphocytes # 0.8 K/mm3 (0.7-4.5); Lymphocytes % 17.7 % (10-50); Mean Corpuscular HGB Conc 32.2 g/dL (31.8-35.4); Mean Corpuscular Volume 93.2 fl (80-94); Mean Platelet Volume 8.9 fl (7.4-10.4); Monocytes # 0.4 K/mm3 (0.1-1.0); Monocytes % 8.4 % (1.7-9.3); Neutrophils # 3.3 K/mm3 (1.8-7.8); Neutrophils % 71.9 % (37.0-80.0); Platelet Count 106 K/mm3 (142-424); Red Blood Count 3.69 M/mm3 (4.60-6.20); Red Cell Distribution Width 14.8 % (11.5-17.5); White Blood Count 4.6 K/mm3 (4.8-10.8)
[2022-11-03 10:39] LABS: Activated Partial Thrombo Time 31.5 seconds (22.8-30.6); Prothrombin Time 12.8 seconds (10.1-12.5)
[2022-11-03 10:56] LABS: Alanine Aminotransferase 26 U/L (12-78); Albumin Level 3.8 g/dl (3.5-5.0); Albumin/Globulin Ratio 1.3 (1.1-1.8); Alkaline Phosphatase 140 U/L (38-126); Aspartate Amino Transferase 41 U/L (17-59); Bilirubin,Total 3.4 mg/dl (0.2-1.3); Blood Urea Nitrogen 15 mg/dl (9-20); Calcium 9.3 mg/dl (8.4-10.2); Carbon Dioxide 24 mmol/L (22.0-30.0); Chloride 104 mmol/L (98-107); Estimated Glomerular Filt Rate 67 ml/min (>60); GFR (African American) 82 ML/MIN (>60); Glucose 91 mg/dl (74-100); Sodium 139 mmol/L (136-145); Total Protein,Serum 6.8 g/dl (6.3-8.2)
== END ==
PROVIDERS: PCP Social Worker; Visit Provider Student in an Organized Health Care Education/Training Program
DX: K72.90 Hepatic failure, unspecified without coma (principal)
CPT/HCPCS: 36415; 80053; 85025; 85610; 85730

== ENCOUNTER → 2022-11-10 11:39 | Outpatient (CLI) | payer OTHER, SELFPAY ==
[2022-11-10 12:02] LABS: Hematocrit 35.6 % (42.0-52.0); Hemoglobin 10.9 g/dL (14.1-18.0); Mean Corpuscular HGB Conc 30.6 g/dL (31.8-35.4); Mean Corpuscular Hemoglobin 28.7 pg (27.0-31.2); Platelet Count 101 K/mm3 (142-424); Red Blood Count 3.78 M/mm3 (4.60-6.20); White Blood Count 4.9 K/mm3 (4.8-10.8)
[2022-11-10 12:19] LABS: Activated Partial Thrombo Time 31.7 seconds (22.8-30.6); INR 1.28 (0.9-1.1); Prothrombin Time 13.6 seconds (10.1-12.5)
[2022-11-10 13:01] LABS: Alanine Aminotransferase 25 U/L (12-78); Albumin Level 3.5 g/dl (3.5-5.0); Albumin/Globulin Ratio 1.2 (1.1-1.8); Alkaline Phosphatase 88 U/L (38-126); Aspartate Amino Transferase 44 U/L (17-59); Bilirubin,Total 3.5 mg/dl (0.2-1.3); Blood Urea Nitrogen 14 mg/dl (9-20); Calcium 9.3 mg/dl (8.4-10.2); Carbon Dioxide 26 mmol/L (22.0-30.0); Chloride 103 mmol/L (98-107); Estimated Glomerular Filt Rate 67 ml/min (>60); GFR (African American) 82 ML/MIN (>60); Globulin 2.9 g/dL (1.3-3.2); Glucose 95 mg/dl (74-100); Sodium 139 mmol/L (136-145); Total Protein,Serum 6.4 g/dl (6.3-8.2)
== END ==
PROVIDERS: PCP Social Worker; Visit Provider Student in an Organized Health Care Education/Training Program
DX: K72.90 Hepatic failure, unspecified without coma (principal)
CPT/HCPCS: 36415; 80053; 85014; 85018; 85048; 85049; 85610; 85730

== ENCOUNTER → 2022-11-17 11:47 | Outpatient (CLI) | payer OTHER, SELFPAY ==
[2022-11-17 12:13] LABS: Hematocrit 35.4 % (42.0-52.0); Hemoglobin 11.4 g/dL (14.1-18.0); Mean Corpuscular HGB Conc 32.1 g/dL (31.8-35.4); Mean Corpuscular Hemoglobin 29.1 pg (27.0-31.2); Mean Corpuscular Volume 90.6 fl (80-94); Platelet Count 115 K/mm3 (142-424); Red Blood Count 3.91 M/mm3 (4.60-6.20); Red Cell Distribution Width 15.1 % (11.5-17.5); White Blood Count 5.5 K/mm3 (4.8-10.8)
[2022-11-17 12:22] LABS: Activated Partial Thrombo Time 32.4 seconds (22.8-30.6); INR 1.24 (0.9-1.1); Prothrombin Time 13.2 seconds (10.1-12.5)
[2022-11-17 13:15] LABS: Alanine Aminotransferase 19 U/L (12-78); Albumin Level 3.8 g/dl (3.5-5.0); Albumin/Globulin Ratio 1.2 (1.1-1.8); Alkaline Phosphatase 155 U/L (38-126); Anion Gap 11.2 mEq/L (5-15); Aspartate Amino Transferase 44 U/L (17-59); Bilirubin,Total 3.1 mg/dl (0.2-1.3); Blood Urea Nitrogen 19 mg/dl (9-20); Calcium 9.5 mg/dl (8.4-10.2); Carbon Dioxide 27 mmol/L (22.0-30.0); Chloride 107 mmol/L (98-107); Estimated Glomerular Filt Rate 61 ml/min (>60); GFR (African American) 74 ML/MIN (>60); Globulin 3.2 g/dL (1.3-3.2); Glucose 98 mg/dl (74-100); Potassium 4.2 mmoL/L (3.5-5.1); Sodium 141 mmol/L (136-145)
== END ==
PROVIDERS: PCP Social Worker; Visit Provider Student in an Organized Health Care Education/Training Program
DX: K72.90 Hepatic failure, unspecified without coma (principal)
CPT/HCPCS: 36415; 80053; 85014; 85018; 85048; 85049; 85610; 85730

== ENCOUNTER → 2022-11-24 11:00 | Outpatient (CLI) | payer OTHER, SELFPAY ==
[2022-11-24 11:35] LABS: Activated Partial Thrombo Time 32.3 seconds (22.8-30.6); INR 1.25 (0.9-1.1); Prothrombin Time 13.3 seconds (10.1-12.5)
[2022-11-24 11:38] LABS: Basophils % 0.3 % (0.1-2.0); Eosinophils # 0.1 K/mm3 (0.0-0.4); Eosinophils % 2.1 % (0.1-12.0); Hematocrit 40.5 % (42.0-52.0); Hemoglobin 12.5 g/dL (14.1-18.0); Mean Corpuscular HGB Conc 30.8 g/dL (31.8-35.4); Mean Corpuscular Hemoglobin 28.2 pg (27.0-31.2); Mean Corpuscular Volume 91.4 fl (80-94); Mean Platelet Volume 8.3 fl (7.4-10.4); Monocytes # 0.4 K/mm3 (0.1-1.0); Monocytes % 8.7 % (1.7-9.3); Neutrophils # 3.5 K/mm3 (1.8-7.8); Neutrophils % 69.9 % (37.0-80.0); Platelet Count 131 K/mm3 (142-424); Red Blood Count 4.43 M/mm3 (4.60-6.20); Red Cell Distribution Width 15.2 % (11.5-17.5)
[2022-11-24 12:02] LABS: Alanine Aminotransferase 20 U/L (12-78); Albumin Level 3.9 g/dl (3.5-5.0); Albumin/Globulin Ratio 1.2 (1.1-1.8); Alkaline Phosphatase 157 U/L (38-126); Anion Gap 10.2 mEq/L (5-15); Aspartate Amino Transferase 41 U/L (17-59); Bilirubin,Total 2.8 mg/dl (0.2-1.3); Blood Urea Nitrogen 21 mg/dl (9-20); Calcium 10.1 mg/dl (8.4-10.2); Carbon Dioxide 29 mmol/L (22.0-30.0); Chloride 106 mmol/L (98-107); Estimated Glomerular Filt Rate 56 ml/min (>60); GFR (African American) 68 ML/MIN (>60); Globulin 3.2 g/dL (1.3-3.2); Glucose 99 mg/dl (74-100); Potassium 4.2 mmoL/L (3.5-5.1); Sodium 141 mmol/L (136-145); Total Protein,Serum 7.1 g/dl (6.3-8.2)
== END ==
PROVIDERS: PCP Social Worker; Visit Provider Student in an Organized Health Care Education/Training Program
DX: K72.90 Hepatic failure, unspecified without coma (principal)
CPT/HCPCS: 36415; 80053; 85025; 85610; 85730

== ENCOUNTER → 2022-11-30 11:44 | Outpatient (CLI) | payer OTHER, SELFPAY ==
[2022-11-30 12:16] LABS: Activated Partial Thrombo Time 31.9 seconds (22.8-30.6); INR 1.22 (0.9-1.1)
[2022-11-30 13:30] LABS: Alanine Aminotransferase 22 U/L (12-78); Albumin Level 4.1 g/dl (3.5-5.0); Albumin/Globulin Ratio 1.4 (1.1-1.8); Alkaline Phosphatase 170 U/L (38-126); Anion Gap 10.9 mEq/L (5-15); Aspartate Amino Transferase 44 U/L (17-59); Bilirubin,Total 2.9 mg/dl (0.2-1.3); Blood Urea Nitrogen 22 mg/dl (9-20); Carbon Dioxide 29 mmol/L (22.0-30.0); Chloride 104 mmol/L (98-107); Estimated Glomerular Filt Rate 61 ml/min (>60); GFR (African American) 74 ML/MIN (>60); Glucose 93 mg/dl (74-100); Potassium 3.9 mmoL/L (3.5-5.1); Sodium 140 mmol/L (136-145); Total Protein,Serum 7.1 g/dl (6.3-8.2)
[2022-11-30 16:32] LABS: Basophils % 0.2 % (0.1-2.0); Eosinophils # 0.1 K/mm3 (0.0-0.4); Eosinophils % 1.9 % (0.1-12.0); Hematocrit 38.1 % (42.0-52.0); Hemoglobin 11.8 g/dL (14.1-18.0); Mean Corpuscular Hemoglobin 28.2 pg (27.0-31.2); Monocytes # 0.3 K/mm3 (0.1-1.0); Monocytes % 7.2 % (1.7-9.3); Neutrophils # 3.3 K/mm3 (1.8-7.8); Neutrophils % 69.7 % (37.0-80.0); Platelet Count 115 K/mm3 (142-424); Red Blood Count 4.18 M/mm3 (4.60-6.20); Red Cell Distribution Width 14.8 % (11.5-17.5); White Blood Count 4.8 K/mm3 (4.8-10.8)
== END ==
PROVIDERS: PCP Social Worker; Visit Provider Student in an Organized Health Care Education/Training Program
DX: K72.90 Hepatic failure, unspecified without coma (principal)
CPT/HCPCS: 36415; 80053; 85025; 85610; 85730

== ENCOUNTER → 2022-12-08 11:47 | Outpatient (CLI) | payer OTHER, SELFPAY ==
[2022-12-08 12:31] LABS: Activated Partial Thrombo Time 33.2 seconds (22.8-30.6); INR 1.25 (0.9-1.1); Prothrombin Time 13.3 seconds (10.1-12.5)
[2022-12-08 12:33] LABS: Hematocrit 36.1 % (42.0-52.0); Hemoglobin 11.2 g/dL (14.1-18.0); Mean Corpuscular HGB Conc 31.1 g/dL (31.8-35.4); Mean Corpuscular Hemoglobin 27.8 pg (27.0-31.2); Mean Corpuscular Volume 89.3 fl (80-94); Platelet Count 87 K/mm3 (142-424); Red Blood Count 4.04 M/mm3 (4.60-6.20); Red Cell Distribution Width 15.5 % (11.5-17.5); White Blood Count 4.5 K/mm3 (4.8-10.8)
[2022-12-08 12:59] LABS: Chloride 105 mmol/L (98-107); Sodium 139 mmol/L (136-145)
[2022-12-08 13:00] LABS: Potassium 4.2 mmoL/L (3.5-5.1)
[2022-12-08 13:02] LABS: Alanine Aminotransferase 24 U/L (12-78); Albumin Level 3.8 g/dl (3.5-5.0); Albumin/Globulin Ratio 1.2 (1.1-1.8); Alkaline Phosphatase 153 U/L (38-126); Anion Gap 11.2 mEq/L (5-15); Aspartate Amino Transferase 46 U/L (17-59); Bilirubin,Total 3.2 mg/dl (0.2-1.3); Blood Urea Nitrogen 21 mg/dl (9-20); Calcium 9.7 mg/dl (8.4-10.2); Carbon Dioxide 27 mmol/L (22.0-30.0); Estimated Glomerular Filt Rate 52 ml/min (>60); GFR (African American) 63 ML/MIN (>60); Globulin 3.2 g/dL (1.3-3.2); Glucose 100 mg/dl (74-100)
== END ==
PROVIDERS: Student in an Organized Health Care Education/Training Program; PCP Social Worker; Visit Provider Nurse Practitioner Family
DX: K72.90 Hepatic failure, unspecified without coma (principal)
CPT/HCPCS: 36415; 80053; 85014; 85018; 85048; 85049; 85610; 85730

== ENCOUNTER → 2022-12-22 11:56 | Outpatient (CLI) | payer OTHER, SELFPAY ==
[2022-12-22 12:27] LABS: Hematocrit 37.1 % (42.0-52.0); Hemoglobin 11.5 g/dL (14.1-18.0); Mean Corpuscular Hemoglobin 27.5 pg (27.0-31.2); Mean Corpuscular Volume 88.7 fl (80-94); Platelet Count 101 K/mm3 (142-424); Red Blood Count 4.18 M/mm3 (4.60-6.20); Red Cell Distribution Width 15.9 % (11.5-17.5); White Blood Count 3.7 K/mm3 (4.8-10.8)
[2022-12-22 12:47] LABS: Activated Partial Thrombo Time 32.6 seconds (22.8-30.6); INR 1.23 (0.9-1.1); Prothrombin Time 13.1 seconds (10.1-12.5)
[2022-12-22 12:55] LABS: Chloride 104 mmol/L (98-107); Potassium 4.2 mmoL/L (3.5-5.1); Sodium 140 mmol/L (136-145)
[2022-12-22 12:58] LABS: Alanine Aminotransferase 22 U/L (12-78); Albumin Level 3.8 g/dl (3.5-5.0); Albumin/Globulin Ratio 1.2 (1.1-1.8); Alkaline Phosphatase 155 U/L (38-126); Anion Gap 12.2 mEq/L (5-15); Aspartate Amino Transferase 37 U/L (17-59); Bilirubin,Total 2.9 mg/dl (0.2-1.3); Blood Urea Nitrogen 25 mg/dl (9-20); Carbon Dioxide 28 mmol/L (22.0-30.0); Estimated Glomerular Filt Rate 48 ml/min (>60); GFR (African American) 59 ML/MIN (>60); Globulin 3.2 g/dL (1.3-3.2)
[2022-12-22 12:59] LABS: Calcium 10.1 mg/dl (8.4-10.2); Glucose 104 mg/dl (74-100)
== END ==
PROVIDERS: PCP Social Worker; Visit Provider Student in an Organized Health Care Education/Training Program
DX: K72.90 Hepatic failure, unspecified without coma (principal)
CPT/HCPCS: 36415; 80053; 85014; 85018; 85048; 85049; 85610; 85730

== ENCOUNTER → 2022-12-29 11:53 | Outpatient (CLI) | payer OTHER, SELFPAY ==
[2022-12-29 12:35] LABS: Hematocrit 39.1 % (42.0-52.0); Hemoglobin 12.3 g/dL (14.1-18.0); Mean Corpuscular HGB Conc 31.4 g/dL (31.8-35.4); Mean Corpuscular Hemoglobin 27.4 pg (27.0-31.2); Mean Corpuscular Volume 87.3 fl (80-94); Platelet Count 128 K/mm3 (142-424); Red Blood Count 4.48 M/mm3 (4.60-6.20); Red Cell Distribution Width 15.8 % (11.5-17.5); White Blood Count 4.9 K/mm3 (4.8-10.8)
[2022-12-29 12:40] LABS: INR 1.21 (0.9-1.1); Prothrombin Time 12.9 seconds (10.1-12.5)
[2022-12-29 13:27] LABS: Chloride 104 mmol/L (98-107); Potassium 3.9 mmoL/L (3.5-5.1); Sodium 140 mmol/L (136-145)
[2022-12-29 13:29] LABS: Blood Urea Nitrogen 21 mg/dl (9-20); Estimated Glomerular Filt Rate 48 ml/min (>60); GFR (African American) 59 ML/MIN (>60)
[2022-12-29 13:30] LABS: Alanine Aminotransferase 21 U/L (12-78); Albumin/Globulin Ratio 1.2 (1.1-1.8); Alkaline Phosphatase 188 U/L (38-126); Anion Gap 14.9 mEq/L (5-15); Aspartate Amino Transferase 37 U/L (17-59); Bilirubin,Total 2.6 mg/dl (0.2-1.3); Calcium 10.4 mg/dl (8.4-10.2); Carbon Dioxide 25 mmol/L (22.0-30.0); Globulin 3.3 g/dL (1.3-3.2); Glucose 97 mg/dl (74-100); Total Protein,Serum 7.3 g/dl (6.3-8.2)
== END ==
PROVIDERS: PCP Social Worker; Visit Provider Student in an Organized Health Care Education/Training Program
DX: K72.90 Hepatic failure, unspecified without coma (principal)
CPT/HCPCS: 36415; 80053; 85014; 85018; 85048; 85049; 85610

== ENCOUNTER → 2023-01-18 11:25 | Outpatient (CLI) | payer OTHER, SELFPAY ==
[2023-01-18 11:46] LABS: Hematocrit 39.4 % (42.0-52.0); Mean Corpuscular HGB Conc 30.6 g/dL (31.8-35.4); Mean Corpuscular Hemoglobin 26.6 pg (27.0-31.2); Platelet Count 89 K/mm3 (142-424); Red Blood Count 4.52 M/mm3 (4.60-6.20); Red Cell Distribution Width 16.2 % (11.5-17.5)
[2023-01-18 12:12] LABS: INR 1.25 (0.9-1.1); Prothrombin Time 13.3 seconds (10.1-12.5)
[2023-01-18 12:29] LABS: Alanine Aminotransferase 21 U/L (12-78); Albumin Level 4.4 g/dl (3.5-5.0); Albumin/Globulin Ratio 1.2 (1.1-1.8); Alkaline Phosphatase 147 U/L (38-126); Anion Gap 14.8 mEq/L (5-15); Aspartate Amino Transferase 38 U/L (17-59); Bilirubin,Total 2.7 mg/dl (0.2-1.3); Blood Urea Nitrogen 20 mg/dl (9-20); Calcium 9.8 mg/dl (8.4-10.2); Carbon Dioxide 30 mmol/L (22.0-30.0); Chloride 102 mmol/L (98-107); Estimated Glomerular Filt Rate 45 ml/min (>60); GFR (African American) 55 ML/MIN (>60); Globulin 3.7 g/dL (1.3-3.2); Glucose 88 mg/dl (74-100); Potassium 4.8 mmoL/L (3.5-5.1); Sodium 142 mmol/L (136-145); Total Protein,Serum 8.1 g/dl (6.3-8.2)
== END ==
PROVIDERS: PCP Social Worker; Visit Provider Student in an Organized Health Care Education/Training Program
DX: K72.90 Hepatic failure, unspecified without coma (principal)
CPT/HCPCS: 36415; 80053; 85014; 85018; 85048; 85049; 85610

== ENCOUNTER 2023-01-30 17:53 | Emergency (ER) | payer OTHER, SELFPAY ==
--- NOTE | 2023-01-30 18:57 | EXP.UTC ---
Discharge Plan Disposition Patient Disposition: Home, Self-Care Condition: Good Prescriptions Prescriptions: New triamcinolone acetonide 0.1 % cream 1 applic topical BID PRN (Reason: itching) Qty: 30 0RF diphenhydramine HCl [Diphenhydramine HCl] 25 mg capsule 25 mg PO Q6HP PRN (Reason: Itching) Qty: 30 0RF methylprednisolone 4 mg Tablets,Dose Pack 4 mg PO DIRECTED Qty: 21 0RF No Action testosterone cypionate 200 mg/mL kit 200 mg IM WEEKLY Nexlizet 180-10 mg Tablet 1 tab PO DAILY thiamine HCl (vitamin B1) 100 mg Tablet 100 mg PO DAILY levothyroxine 75 mcg Tablet 75 mcg PO DAILY baclofen 10 mg Tablet 10 mg PO HS pantoprazole 40 mg Tablet,Delayed Release (Dr/Ec) 40 mg PO DAILY lactulose 10 gram/15 mL Solution 15 ml PO BID Xifaxan 550 mg Tablet 550 mg PO TID Referrals Follow up/Referrals: Provider,Referral, MD [Primary Care Provider] - See instructions Activity Restrictions/Add. Instructions Additional Instructions/Restrictions: Try to avoid contact with the offending substance. Don't start the oral steroids until tomorrow. The diphenhydramine (benedryl) will make you drowsy, so don't drive or operate heavy machinery after taking it. Don't put the topical steroids (triamcinolone) on your face or your groin. Follow up with your regular doctor. GO TO THE ER FOR ANY WORSENING SYMPTOMS OR CONCERNS Clinical Impressions Clinical Impression: Contact dermatitis Instructions Patient Instructions: Contact Dermatitis, DI for Contact Dermatitis Discharge ED Provider: Andrew Shipley [facility] General Stated complaint: poison kristen Time Seen by Provider: 01/30/23 18:57 History of Present Illness Provider Complaint: He states that for the past several days he has had an itchy rash on his legs, arms, and body from coming into contact with poison kristen. Related Data Home Medications Medication Instructions Recorded Confirmed testosterone cypionate 200 mg/mL 200 mg IM WEEKLY Supplement 10/20/20 08/31/22 intramuscular kit baclofen 10 mg tablet 10 mg PO HS SPASMS 08/31/22 08/31/22 bempedoic acid 180 mg-ezetimibe 10 1 tab PO DAILY Cholesterol 04/20/23 04/20/23 mg tablet (Nexlizet) lactulose 10 gram/15 mL oral 15 ml PO BID CIRRHOSIS 08/31/22 08/31/22 solution levothyroxine 75 mcg tablet 75 mcg PO DAILY HYPOTHYROIDISM 08/31/22 08/31/22 pantoprazole 40 mg tablet,delayed 40 mg PO DAILY GERD 08/31/22 08/31/22 release rifaximin 550 mg tablet (Xifaxan) 550 mg PO TID CIRRHOSIS 08/31/22 08/31/22 thiamine HCl (vitamin B1) 100 mg 100 mg PO DAILY Supplement 08/31/22 08/31/22 tablet Previous Rx's Medication Instructions Recorded diphenhydramine HCl 25 mg capsule 25 mg PO Q6HP PRN Itching #30 caps 01/30/23 methylprednisolone 4 mg tablets in 4 mg PO DIRECTED #21 tabs 01/30/23 a dose pack triamcinolone acetonide 0.1 % 1 applic topical BID PRN itching 01/30/23 topical cream #30 grams Allergies Allergy/AdvReac Type Severity Reaction Status Date / Time No Known Allergies Allergy Verified 12/01/20 14:48 [facility] Disclaimer: The information contained in this section may have been updated after the patient was seen, as this information can be updated by other users. Medical History (Updated 01/30/23 @ 19:07 by Andrew Shipley APRN) Cirrhosis Esophageal varices Gastric varices GERD (gastroesophageal reflux disease) Hyperlipemia Hypertension Hypothyroidism Renal mass Surgical History (Updated 08/31/22 @ 13:04 by Anita Dixon RN) H/O endoscopy S/P cervical spinal fusion Social History (Updated 08/31/22 @ 12:43 by Anita Dixon RN) Smoking Status: Never smoker alcohol intake: never substance use type: denies use current occupational status: employed and other Travel in the last 8 weeks: None household members: significant other housing: house ROS Obtained: Yes All systems reviewed
[2023-01-30 18:58] VITALS: BP 149/85; PULSE 67; RESP 18; TEMP 36.8; O2SAT 100; BMI 29.8
[2023-01-30 19:15] VITALS: BP 149/85; PULSE 67; RESP 16; TEMP 36.8; O2SAT 98
== END 2023-01-30 19:16 | disposition home or self-care (01) ==
PROVIDERS: Emergency Provider Nurse Practitioner Family
DX: L23.7 Allergic contact dermatitis due to plants, except food (principal); E03.9 Hypothyroidism, unspecified; E78.5 Hyperlipidemia, unspecified; I10 Essential (primary) hypertension; K21.9 Gastro-esophageal reflux disease without esophagitis; W60.XXXA Contact with nonvenomous plant thorns and spines and sharp leaves, initial encounter
CPT/HCPCS: 96372; 99212; 99214; G0463

== ENCOUNTER → 2023-02-08 15:20 | Outpatient (CLI) | payer OTHER, SELFPAY ==
[2023-02-08 16:08] LABS: Activated Partial Thrombo Time 30.8 seconds (22.8-30.6); INR 1.21 (0.9-1.1); Prothrombin Time 12.9 seconds (10.1-12.5)
[2023-02-08 16:18] LABS: Alanine Aminotransferase 23 U/L (12-78); Albumin Level 4.4 g/dl (3.5-5.0); Albumin/Globulin Ratio 1.3 (1.1-1.8); Alkaline Phosphatase 167 U/L (38-126); Anion Gap 14.2 mEq/L (5-15); Aspartate Amino Transferase 37 U/L (17-59); Blood Urea Nitrogen 21 mg/dl (9-20); Carbon Dioxide 25 mmol/L (22.0-30.0); Chloride 105 mmol/L (98-107); Estimated Glomerular Filt Rate 52 ml/min (>60); GFR (African American) 63 ML/MIN (>60); Globulin 3.3 g/dL (1.3-3.2); Glucose 105 mg/dl (74-100); Potassium 4.2 mmoL/L (3.5-5.1); Sodium 140 mmol/L (136-145); Total Protein,Serum 7.7 g/dl (6.3-8.2)
[2023-02-08 16:32] LABS: Basophils % 0.4 % (0.1-2.0); Eosinophils # 0.1 K/mm3 (0.0-0.4); Eosinophils % 2.5 % (0.1-12.0); Hematocrit 42.7 % (42.0-52.0); Hemoglobin 13.3 g/dL (14.1-18.0); Lymphocytes # 1.1 K/mm3 (0.7-4.5); Lymphocytes % 20.3 % (10-50); Mean Corpuscular HGB Conc 31.1 g/dL (31.8-35.4); Mean Corpuscular Hemoglobin 26.5 pg (27.0-31.2); Mean Platelet Volume 8.4 fl (7.4-10.4); Monocytes # 0.5 K/mm3 (0.1-1.0); Monocytes % 10.3 % (1.7-9.3); Neutrophils # 3.4 K/mm3 (1.8-7.8); Neutrophils % 66.5 % (37.0-80.0); Platelet Count 104 K/mm3 (142-424); Red Blood Count 5.03 M/mm3 (4.60-6.20); Red Cell Distribution Width 16.5 % (11.5-17.5); White Blood Count 5.1 K/mm3 (4.8-10.8)
== END ==
PROVIDERS: PCP Social Worker; Visit Provider Student in an Organized Health Care Education/Training Program
DX: K72.90 Hepatic failure, unspecified without coma (principal)
CPT/HCPCS: 36415; 80053; 85025; 85610; 85730

== ENCOUNTER → 2023-03-02 13:59 | Outpatient (CLI) | payer OTHER, SELFPAY | PROVIDERS: PCP Social Worker; Visit Provider Social Worker | DX: K72.90 Hepatic failure, unspecified without coma (principal) ==

== ENCOUNTER 2023-06-26 13:43 | Outpatient (CLI) | payer OTHER, SELFPAY ==
--- NOTE | 2023-06-26 13:52 | XR_ITS ---
FINAL REPORT TECHNIQUE: 5 views CLINICAL HISTORY: NECK PAIN COMPARISON: None FINDINGS: There is no fracture present. The patient has undergone fusion from the C3 through the C6 level anteriorly. There is moderate degenerative change with osteophytes in the lower cervical region and upper thorax. At the C7-T1 level there is moderate left neural foraminal narrowing present. IMPRESSION: Prior anterior fusion C3-C6. Moderate degenerative changes as described. Reviewed, Interpreted and Dictated by Law Leigh III, MD Transcribed by Leatha Arriola Authenticated and [facility]
== END 2023-06-26 23:59 ==
PROVIDERS: PCP Nurse Practitioner Family; Visit Provider Nurse Practitioner Family
DX: M54.2 Cervicalgia (principal); Z87.828 Personal history of other (healed) physical injury and trauma
CPT/HCPCS: 72050

== ENCOUNTER 2023-07-13 16:36 | Outpatient (CLI) | payer OTHER, SELFPAY ==
--- NOTE | 2023-07-13 16:42 | MR_ITS ---
PROCEDURE INFORMATION: Exam: MR Cervical Spine Without and With Contrast Exam date and time: 07/13/2023 4:55 PM Age: 38 years old Clinical indication: Neck pain; Prior surgery; Surgery date: 6+ months; Additional info: Cervical pain. Bilateral numbness and tingling c8-t1 dermatomes. TECHNIQUE: Imaging protocol: Magnetic resonance imaging of the cervical spine without and with contrast. Contrast material: PROHANCE; Contrast volume: 22 ml; Contrast route: IV; COMPARISON: CR XR CERVICAL SPINE 5V 06/26/2023 1:54 PM FINDINGS: Bones/joints: The patient is status post anterior cervical fusion and corpectomy from C3 through C6 with expected laminectomy changes are seen at multiple levels. Gross anatomic alignment is maintained. Spinal cord: Normal signal. No cord compression. C2-C3: No significant disc bulge or herniation. No severe spinal canal stenosis. No significant neural foraminal narrowing. C3-C4: No significant disc bulge or herniation. No severe spinal canal stenosis. No significant neural foraminal narrowing. C4-C5: No significant disc bulge or herniation. No severe spinal canal stenosis. No significant neural foraminal narrowing. C5-C6: No significant disc bulge or herniation. No severe spinal canal stenosis. No significant neural foraminal narrowing. C6-C7: There is mild diffuse disc bulging which partially effaces the anterior thecal sac. There is no significant spinal canal or neural foraminal stenosis. C7-T1: There is no significant spinal canal stenosis. There is a small to moderate-sized left foraminal disc protrusion and a small right foraminal disc protrusion which appear to abut the exiting C8 nerve roots. There is mild bilateral neural foraminal stenosis. Soft tissues: Unremarkable. Vasculature: Expected flow voids in the vertebral arteries. IMPRESSION: 1. Expected postsurgical changes. 2. Bilateral foraminal disc protrusions at C7-T1 left greater than right which appear to abut the exiting C8 nerve roots. Please see above for specific findings at each level.
[2023-07-13 17:02] LABS: Blood Urea Nitrogen 17 mg/dl (9-20); Estimated Glomerular Filt Rate 56 ml/min (>60); GFR (African American) 68 ML/MIN (>60)
[2023-07-13] MEDS: SODIUM CHLORIDE 0.9% 10ML SYR (RAD ONLY) 10 ML IV (17:44)
[2023-07-13] MEDS: GADOTERIDOL INJ 17ML SYRINGE 22 ML IV (17:44)
== END 2023-07-13 23:59 ==
PROVIDERS: PCP Nurse Practitioner Family; Visit Provider Nurse Practitioner Family
DX: M54.2 Cervicalgia (principal); Z98.890 Other specified postprocedural states; M25.60 Stiffness of unspecified joint, not elsewhere classified
CPT/HCPCS: 36415; 72156; 76376; 82565; 84520; A9576

== ENCOUNTER 2023-07-16 15:40 | Outpatient (CLI) | payer OTHER, SELFPAY ==
--- NOTE | 2023-07-16 15:45 | MR_ITS ---
FINAL REPORT CLINICAL HISTORY: HISTORY OF SPINAL SURGERY. MID BACK PAIN. PAIN BETWEEN SCAPULAS COMPARISON: None FINDINGS: Multiplanar MR imaging of the thoracic spine was performed without and with contrast. On the sagittal T2-weighted images, disc degeneration is seen at multiple levels. Multiple Schmorl's nodes are present as well. Multilevel bulges and small anterior osteophytes are present. There is no evidence of fracture. The vertebral alignment is normal. No bony mass is identified. The thoracic spinal cord has an unremarkable appearance without evidence of mass, edema or syrinx. There is no evidence of significant canal stenosis. On the axial images, annular bulges are seen at multiple levels. Multiple vertebral osteophytes are present. There is a left foraminal disc protrusion present at the T3-4 level which produces mild left neural foraminal narrowing. A central protrusion is present at the T6-7 level which indents the anterior aspect of the thecal sac. At the T7-8 level, a small central protrusion is present. At the T12-L1 level, there is a small right paracentral disc protrusion which mildly indents the thecal sac. No significant canal stenosis is identified. On the postcontrast images, no abnormal contrast enhancement is identified. IMPRESSION: Multilevel degenerative disc disease as described, with small protrusions noted at the T3-4, T6-7, T7-8, and T12-L1 levels. No abnormal contrast enhancement identified. Reviewed, Interpreted and Dictated by Law Leigh III, MD Transcribed by Leatha Arriola Authenticated and [facility]
[2023-07-16] MEDS: GADOTERIDOL INJ 17ML SYRINGE 22 ML IV (16:37)
[2023-07-16] MEDS: SODIUM CHLORIDE 0.9% 10ML SYR (RAD ONLY) 10 ML IV (16:38)
== END 2023-07-16 23:59 ==
LOC: RAD 15:40
PROVIDERS: PCP Nurse Practitioner Family; Visit Provider Nurse Practitioner Family
DX: M54.6 Pain in thoracic spine (principal); M25.60 Stiffness of unspecified joint, not elsewhere classified; Z98.890 Other specified postprocedural states
CPT/HCPCS: 72157; A9576

== ENCOUNTER 2023-08-22 12:21 | Outpatient (CLI) | payer OTHER, SELFPAY ==
[2023-08-22 13:03] LABS: Prothrombin Time 11.8 seconds (10.1-12.5)
== END 2023-08-22 23:59 ==
PROVIDERS: PCP Nurse Practitioner Family; Visit Provider Student in an Organized Health Care Education/Training Program
DX: Z01.812 Encounter for preprocedural laboratory examination (principal)
CPT/HCPCS: 36415; 85610

== ENCOUNTER 2023-08-30 09:29 | Outpatient (CLI) | payer OTHER, SELFPAY ==
--- NOTE | 2023-08-30 09:34 | US_ITS ---
FINAL REPORT CLINICAL HISTORY: CIRRHOSIS COMPARISON: None FINDINGS: Sonographic images of the right upper quadrant were obtained. The pancreas is partially obscured. The liver is nodular in appearance consistent with the clinical diagnosis of cirrhosis. There are multiple echogenic foci with posterior acoustical shadowing present in the gallbladder consistent with gallstones. There is no evidence of biliary ductal dilatation.The common duct measures 3 mm. There are multiple collaterals identified in the hilum of the liver, that may represent varices of the charly hepatis or cavernous transformation. Correlation with CT would be helpful for further evaluation as clinically indicated. There are multiple renal cysts present and multiple calcifications in the right kidney, consistent with with nonobstructing renal stones. IMPRESSION: The liver is nodular in appearance consistent with the clinical diagnosis of cirrhosis. No biliary ductal dilatation is seen. There are multiple collaterals in the hilum of the liver that may represent varices of the charly hepatis or cavernous transformation. Correlation with CT would be helpful for further evaluation as clinically indicated. Multiple renal cysts, as well as multiple calcifications in the right kidney consistent with nonobstructing renal stones. Reviewed, Interpreted and Dictated by Donte Li MD Transcribed by Leatha Arriola Authenticated and [facility]
== END 2023-08-30 23:59 | disposition home or self-care (01) ==
LOC: RAD 09:29
PROVIDERS: PCP Nurse Practitioner Family; Visit Provider Student in an Organized Health Care Education/Training Program
DX: K72.10 Chronic hepatic failure without coma (principal)
CPT/HCPCS: 76705

== ENCOUNTER 2023-11-09 11:33 | Outpatient (CLI) | payer OTHER, SELFPAY ==
[2023-11-09 12:51] LABS: INR 1.03 (0.9-1.1); Prothrombin Time 11.5 seconds (10.1-12.5)
[2023-11-09 13:20] LABS: Chloride 103 mmol/L (98-107); Sodium 142 mmol/L (136-145)
[2023-11-09 13:22] LABS: Alanine Aminotransferase 29 U/L (12-78); Aspartate Amino Transferase 131 U/L (17-59); Blood Urea Nitrogen 15 mg/dl (9-20); Estimated Glomerular Filt Rate 52 ml/min (>60); GFR (African American) 63 ML/MIN (>60)
[2023-11-09 13:23] LABS: Albumin Level 4.2 g/dl (3.5-5.0); Albumin/Globulin Ratio 1.2 (1.1-1.8); Alkaline Phosphatase 182 U/L (38-126); Bilirubin,Total 10.1 mg/dl (0.2-1.3); Calcium 9.2 mg/dl (8.4-10.2); Carbon Dioxide 26 mmol/L (22.0-30.0); Globulin 3.5 g/dL (1.3-3.2); Glucose 96 mg/dl (74-100); Total Protein,Serum 7.7 g/dl (6.3-8.2)
== END 2023-11-09 23:59 | disposition home or self-care (01) ==
LOC: LAB 11:35
PROVIDERS: Visit Provider Student in an Organized Health Care Education/Training Program
DX: K72.10 Chronic hepatic failure without coma (principal)
CPT/HCPCS: 36415; 80053; 85610

== ENCOUNTER 2023-12-21 13:29 | Outpatient (CLI) | payer OTHER, SELFPAY ==
[2023-12-21 13:38] LABS: Microscopic, Urine URINE MICROSCOPIC (MICROSCOPIC)
[2023-12-21 14:43] LABS: Appearance,Urine CLEAR (Clear); Bilirubin,Urine Negative (Negative); Blood, Urine Negative (Negative); Color,Urine YELLOW (Yellow); Glucose,Urine (UA) Negative (Negative); Ketones,Urine Negative (Negative); Leukocyte Esterase,Urine Negative (Negative); Nitrate,Urine Negative (Negative); Protein,Urine 1+ (Negative); Specific Gravity, Urine 1.015 (1.005-1.030)
[2023-12-21 14:45] LABS: Chloride 109 mmol/L (98-107); Potassium 4.4 mmoL/L (3.5-5.1); Sodium 142 mmol/L (136-145)
[2023-12-21 14:48] LABS: Blood Urea Nitrogen 27 mg/dl (9-20); Estimated Glomerular Filt Rate 52 ml/min (>60); GFR (African American) 63 ML/MIN (>60)
[2023-12-21 14:49] LABS: Anion Gap 14.4 mEq/L (5-15); Carbon Dioxide 23 mmol/L (22.0-30.0); Glucose 172 mg/dl (74-100)
[2023-12-21 14:52] LABS: Bacteria,Urine Trace /lpf; Squamous Epithelial Cell,Urine Occasional #/hpf (0-5)
[2023-12-21 14:59] LABS: Intact Parathyroid Hormone 17.3 pg/mL (7.5-53.5)
[2023-12-21 16:31] LABS: 25-OH Vitamin D, Total 42.2 ng/mL (30-100)
== END 2023-12-21 23:59 | disposition home or self-care (01) ==
LOC: LAB 13:31
PROVIDERS: PCP Nurse Practitioner Family; Visit Provider Internal Medicine Nephrology
DX: K76.6 Portal hypertension (principal)
CPT/HCPCS: 36415; 80048; 81001; 82306; 83970

== ENCOUNTER 2024-04-07 13:49 | Outpatient (CLI) | payer OTHER, SELFPAY ==
[2024-04-07 15:08] LABS: Chloride 104 mmol/L (98-107); Sodium 145 mmol/L (136-145)
[2024-04-07 15:09] LABS: Potassium 3.7 mmoL/L (3.5-5.1)
[2024-04-07 15:11] LABS: Blood Urea Nitrogen 21 mg/dl (9-20); Estimated Glomerular Filt Rate 61 ml/min (>60); GFR (African American) 74 ML/MIN (>60)
[2024-04-07 15:12] LABS: Anion Gap 18.7 mEq/L (5-15); Calcium 9.5 mg/dl (8.4-10.2); Carbon Dioxide 26 mmol/L (22.0-30.0); Glucose 171 mg/dl (74-100)
[2024-04-10 01:59] LABS: Cystatin C 1.51 mg/L (0.60-1.00)
== END 2024-04-07 23:59 | disposition home or self-care (01) ==
LOC: LAB 13:51
PROVIDERS: PCP Nurse Practitioner Family; Visit Provider Internal Medicine Nephrology
DX: K76.6 Portal hypertension (principal); N17.9 Acute kidney failure, unspecified
CPT/HCPCS: 36415; 80048; 82610

== ENCOUNTER 2024-05-05 09:18 | Outpatient (CLI) | payer OTHER, SELFPAY ==
[2024-05-05 11:12] LABS: Alanine Aminotransferase 35 U/L (12-78); Albumin Level 3.7 g/dl (3.5-5.0); Albumin/Globulin Ratio 1.2 (1.1-1.8); Alkaline Phosphatase 140 U/L (38-126); Anion Gap 12.4 mEq/L (5-15); Aspartate Amino Transferase 158 U/L (17-59); Bilirubin,Total 6.6 mg/dl (0.2-1.3); Blood Urea Nitrogen 8 mg/dl (9-20); Calcium 9.1 mg/dl (8.4-10.2); Carbon Dioxide 27 mmol/L (22.0-30.0); Chloride 102 mmol/L (98-107); Estimated Glomerular Filt Rate 61 ml/min (>60); GFR (African American) 74 ML/MIN (>60); Glucose 81 mg/dl (74-100); Potassium 3.4 mmoL/L (3.5-5.1); Sodium 138 mmol/L (136-145); Total Protein,Serum 6.7 g/dl (6.3-8.2)
[2024-05-05 12:05] LABS: Hematocrit 42.5 % (42.0-52.0); Hemoglobin 14.7 g/dL (14.1-18.0); Mean Corpuscular Volume 95.5 fl (80-94); Red Blood Count 4.45 M/mm3 (4.60-6.20); White Blood Count 4.3 K/mm3 (4.8-10.8)
[2024-05-05 12:06] LABS: Mean Corpuscular HGB Conc 34.6 g/dL (31.8-35.4); Red Cell Distribution Width 15.7 % (11.5-17.5)
[2024-05-05 12:10] LABS: Platelet Count 39 K/mm3 (142-424)
== END 2024-05-05 23:59 | disposition home or self-care (01) ==
LOC: LAB 09:19
PROVIDERS: PCP Nurse Practitioner Family; Visit Provider Nurse Practitioner Family
DX: K72.10 Chronic hepatic failure without coma (principal)
CPT/HCPCS: 36415; 80053; 85027

== ENCOUNTER 2024-07-25 11:06 | Outpatient (CLI) | payer OTHER, SELFPAY ==
[2024-07-25 11:26] LABS: Microscopic, Urine URINE MICROSCOPIC (MICROSCOPIC)
[2024-07-25 11:54] LABS: Creatinine,Urine Random 132 mg/dL (Not Estab.)
[2024-07-25 12:03] LABS: Alanine Aminotransferase 83 U/L (12-78); Albumin Level 4.1 g/dl (3.5-5.0); Albumin/Globulin Ratio 1.1 (1.1-1.8); Alkaline Phosphatase 124 U/L (38-126); Aspartate Amino Transferase 116 U/L (17-59); Blood Urea Nitrogen 40 mg/dl (9-20); Calcium 9.7 mg/dl (8.4-10.2); Carbon Dioxide 19 mmol/L (22.0-30.0); Chloride 104 mmol/L (98-107); Estimated Glomerular Filt Rate 26 ml/min (>60); GFR (African American) 32 ML/MIN (>60); Globulin 3.7 g/dL (1.3-3.2); Glucose 127 mg/dl (74-100); Sodium 136 mmol/L (136-145); Total Protein,Serum 7.8 g/dl (6.3-8.2)
[2024-07-25 12:09] LABS: Appearance,Urine Slightly Cloudy (Clear); Color,Urine Dark Yellow (Yellow)
[2024-07-25 12:10] LABS: Bilirubin,Urine 3+ (Negative); Blood, Urine Negative (Negative); Glucose,Urine (UA) 100 (Negative); Ketones,Urine Trace (Negative); Leukocyte Esterase,Urine Negative (Negative); Nitrate,Urine Negative (Negative); Protein,Urine Trace (Negative); Urobilinogen,Urine 0.2 EU/dl (0.2)
[2024-07-25 12:12] LABS: Anion Gap 16.1 mEq/L (5-15); Bilirubin,Total 49.7 mg/dl (0.2-1.3); Potassium 3.1 mmoL/L (3.5-5.1)
[2024-07-25 12:26] LABS: Bacteria,Urine Trace /lpf; Other Crystals,Urine 1+ /lpf; Squamous Epithelial Cell,Urine Occasional #/hpf (0-5)
[2024-07-25 17:34] LABS: Intact Parathyroid Hormone 25.2 pg/mL (7.5-53.5)
== END 2024-07-25 23:59 | disposition home or self-care (01) ==
PROVIDERS: PCP Nurse Practitioner Family; Visit Provider Internal Medicine Nephrology
DX: K72.90 Hepatic failure, unspecified without coma (principal); K74.60 Unspecified cirrhosis of liver; K76.7 Hepatorenal syndrome; N17.9 Acute kidney failure, unspecified; K76.6 Portal hypertension
CPT/HCPCS: 36415; 80053; 81001; 82043; 82306; 82570; 83970

== ENCOUNTER 2024-08-12 12:37 | Outpatient (CLI) | payer OTHER, SELFPAY ==
[2024-08-12 13:14] LABS: Ammonia 57 umol/L (9-30); Basophils # 0.1 K/mm3 (0-0.2); Basophils % 0.5 % (0.1-2.0); Eosinophils # 0.2 K/mm3 (0.0-0.4); Eosinophils % 2.2 % (0.1-12.0); Hematocrit 31.7 % (42.0-52.0); Hemoglobin 11.7 g/dL (14.1-18.0); Lymphocytes % 9.8 % (10-50); Mean Corpuscular HGB Conc 36.9 g/dL (31.8-35.4); Mean Corpuscular Hemoglobin 33.4 pg (27.0-31.2); Mean Corpuscular Volume 90.6 fl (80-94); Monocytes # 0.6 K/mm3 (0.1-1.0); Monocytes % 6.4 % (1.7-9.3); Neutrophils # 7.8 K/mm3 (1.8-7.8); Neutrophils % 80.7 % (37.0-80.0); Red Cell Distribution Width 21.2 % (11.5-17.5); White Blood Count 9.7 K/mm3 (4.8-10.8)
[2024-08-12 13:39] LABS: Activated Partial Thrombo Time 58.4 seconds (22.8-30.6); INR 1.94 (0.9-1.1); Prothrombin Time 20.3 seconds (10.1-12.5)
[2024-08-12 13:52] LABS: Alanine Aminotransferase 52 U/L (12-78); Albumin Level 2.7 g/dl (3.5-5.0); Alkaline Phosphatase 118 U/L (38-126); Anion Gap 22.8 mEq/L (5-15); Aspartate Amino Transferase 69 U/L (17-59); Bilirubin, Conjugated 19.2 mg/dL (0.0-0.3); Bilirubin,Unconjugated 3.9 mg/dL (0.0-1.1); Blood Urea Nitrogen 60 mg/dl (9-20); Calcium 9.5 mg/dl (8.4-10.2); Chloride 107 mmol/L (98-107); Estimated Glomerular Filt Rate 15 ml/min (>60); GFR (African American) 18 ML/MIN (>60); Glucose 100 mg/dl (74-100); Phosphorous 6.3 mg/dl (2.5-4.5); Sodium 135 mmol/L (136-145); Total Protein,Serum 6.3 g/dl (6.3-8.2)
[2024-08-12 14:12] LABS: Bilirubin,Total 35.5 mg/dl (0.2-1.3)
[2024-08-12 14:17] LABS: Carbon Dioxide 8 mmol/L (22.0-30.0); Potassium 2.8 mmoL/L (3.5-5.1)
[2024-08-12 14:18] LABS: Platelet Count 45 K/mm3 (142-424)
[2024-08-12 14:48] LABS: Bilirubin,Direct 18.6 mg/dl (0.0-0.4); Bilirubin,Indirect 16.9 mg/dL (0.0-0.9)
== END 2024-08-12 23:59 | disposition home or self-care (01) ==
LOC: LAB 12:45
PROVIDERS: PCP Nurse Practitioner Family; Visit Provider Nurse Practitioner Family
DX: K74.60 Unspecified cirrhosis of liver (principal)
CPT/HCPCS: 36415; 80069; 80076; 82140; 85025; 85610; 85730

== ENCOUNTER 2024-08-22 14:44 | Outpatient (CLI) | payer OTHER, SELFPAY ==
--- OUTSIDE RECORDS SUMMARY | 2024-08-22 14:47 | XMS_ITS | Data Portability ---
Author Organization [facility],, Main Office Address [address] [place] [address] Assessment No assessment recorded. Plan of Treatment Reminders Order Date Submit Date Provider Last Modified By Organization Details Last Modified Time Details Appointments None record ed. Lab None record ed. Referral None record ed. Procedures None record ed. Surgeries None record ed. Imaging None record ed. Medication Orders None record ed. Patient TargetsNo targets recorded. Patient InstructionsNo instructions recorded. Reason for Referral None Reported. Medical Equipment None Reported. Medications Name Sig Start Date Stop Date Status Note LastModified by Organization Details LastModified Time anastrozole 1 mg tablet active Not Available Not Available Not Available syringe (disposable) 5 mL active Not Available Not Available Not Available Zyrtec-D 5 mg-120 mg tablet,exten ded release active Not Available Not Available Not Available BD Insulin Syringe 1 mL 25 x 1 active Not Available Not Available Not Available atorvastatin 10 mg tablet active Not Available Not Available Not Available amlodipine 2.5 mg tablet TAKE ONE TABLET BY MOUTH EVERY DAY active Not Available Not Available No t Available sildenafil 25 mg tablet TAKE 1 TABLET BY MOUTH ONCE DAILY NEEDED FOR ERECTILE DYSFUNCTION active Not Available Not Available Not Available tramadol 50 mg tablet TAKE 1 TABLET BY MOUTH EVERY 12 HOURS NEEDED FOR MODERATE PAIN active Not Available Not Available No t Available triamterene 37.5 mg-hydrochlo rothiazide 25 mg capsule active Not Available Not Available Not Available triamcinolon e acetonide 0.1 % topical cream APPLY TOPICALLY TO THE AFFECTED AREA(S) TWICE DAILY FOR ITCHING -- FOR EXTERNAL USE ONLY-- active Not Available Not Available N ot Available carvedilol 3.125 mg tablet TAKE 2 TABLETS BY MOUTH TWICE DAILY WITH MEALS active Not Available Not Available No t Available levothyroxin e 75 mcg tablet TAKE 1 TABLET BY MOUTH ONCE DAILY active Not Available Not Available No t Available nadolol 20 mg tablet TAKE 1 TABLET BY MOUTH ONCE DAILY active Not Available Not Available No t Available BD Regular Bevel [place] 18 gauge x 1 active Not Available Not Available N ot Available alprazolam 0.25 mg tablet TAKE 1 TABLET BY MOUTH TWICE DAILY NEEDED FOR ANXIETY active Not Available Not Available No t Available oxycodone-ac etaminophen 10 mg-325 mg tablet active Not Available Not Available Not Available sodium bicarbonate 650 mg tablet TAKE 1 TABLET BY MOUTH TWICE DAILY active Not Available Not Available No t Available meclizine 25 mg tablet TAKE ONE TABLET BY MOUTH EVERY 6 HOURS NEEDED FOR dizziness active Not Available Not Available No t Available pantoprazole 40 mg tablet,delay ed release TAKE 1 TABLET BY MOUTH ONCE DAILY active Not Available Not Available No t Available neomycin-carlitos ymyxin-dexam eth 3.5 mg/mL-10,000 unit/mL-0.1% eye drops INSTILL 1 DROP INTO RIGHT EYE 4 TIMES DAILY FOR 7 DAYS active Not Available Not Available N ot Available Banophen 25 mg capsule TAKE ONE CAPSULE BY MOUTH EVERY 6 HOURS NEEDED FOR ITCHING active Not Available Not Available No t Available furosemide 20 mg tablet active Not Available Not Available Not Available testosterone cypionate 200 mg/mL intramuscula r oil INJECT 1 ML (CC) INTRAMUSCUL JAMES DIRECTED ONCE A WEEK active Not Available Not Available Not Available methylpredni solone 4 mg tablets in a dose pack TAKE ACCORDING TO PACKAGE INSTRUCTION S --TAKE WITH FOOD-- -- FINISH ALL MEDICINE -- active Not Available Not Available Not Available losartan 100 mg tablet TAKE ONE TABLET BY MOUTH EVERY DAY active Not Available Not Available No t Available BD Luer-Anali Syringe 3 mL 21 gauge x 1 active Not Available Not Available Not Available tobramycin 0.3 %-dexamethas one 0.1 % eye drops,suspen kevin active Not Available Not Available Not Available cyclobenzapr ine 5 mg tablet TAKE 1 TABLET BY MOUTH THREE TIMES DAILY NEEDED FOR MUSCLE SPASM active Not Available Not Available No t Available tadalafil 5 mg tablet TAKE 1 TABLET BY MOUTH TWICE DAILY NEEDED FOR ERECTILE DYSFUNCTION active Not Available Not Available Not Available tadalafil 10 mg tablet TAKE 2 TABLETS BY MOUTH ONCE DAILY NEEDED FOR ERECTILE DYSFUNCTION active Not Available Not Available Not Available acamprosate 333 mg tablet,delay ed release TAKE 2 TABLETS BY MOUTH THREE TIMES DAILY, DO NOT CRUSH, CHEW,OR SPLIT active Not Available Not Available No t Available duloxetine 20 mg capsule,luigi yed release TAKE 1 CAPSULE BY MOUTH ONCE DAILY active Not Available Not Available No t Available lactulose 10 gram/15 mL oral solution active Not Available Not Available Not Available BD PrecisionGli de 25 gauge x 1 needle active Not Available Not Available Not Available BD Integra Syringe 3 mL 25 gauge x 1 active Not Available Not Available Not Available cholecalcife rol (vitamin D3) 1,250 mcg (50,000 unit) capsule active Not Available Not Available Not Available Xifaxan 550 mg tablet TAKE 1 TABLET BY MOUTH TWICE DAILY active Not Available Not Available No t Available baclofen 5 mg tablet TAKE 1 TABLET BY MOUTH EVERY 8 HOURS active Not Available Not Available No t Available Nexlizet 180 mg-10 mg tablet TAKE 1 TABLET BY MOUTH ONCE DAILY active Not Available Not Available No t Available Vitals Date Recorded Body temperature Provider Name a nd Address Organization Details Last Updated DateTime 12/27/2020 99.5 [degF] Cuca Strickland [facility], 12/27/2020 13:41:33 Date Recorded Body weight Heart rate Body temperature Systolic blood pressure Diastolic blood pressure Provider Name and Address Organization Details Last Updated DateTime 04/03/2022 416392. 95 g 93 /min 97.6 [degF] 114 mm[Hg] 83 mm[Hg] Ashley Wallace [facility], 2 14:42:57 Date Recorded Body height Body mass index (BMI) Body weight Heart rate Body temperature Systolic blood pressure Diastolic blood pressure Provider Name and Address Organization Details Last Updated DateTime 3 193.04 cm 29.1 kg/m2 913397. 58 g 112 /min 97.7 [degF] 141 mm[Hg] 84 mm[Hg] [facility], 3 13:14:11 Date Recorded Body height Body mass index (BMI) Body weight Heart rate Body temperature Systolic blood pressure Diastolic blood pressure Provider Name and Address Organization Details Last Updated DateTime 4 193.04 cm 30.4 kg/m2 931481. 09 g 92 /min 97.5 [degF] 176 mm[Hg] 104 mm[Hg] [facility], 14:06:31 Social History None recorded. Functional Status None recorded. Mental Status None recorded. Family History Nothing Reported. Medical History No medical history recorded. Past Encounters Encounter ID Performer Location Encounter Start Date Encounter Closed Date Diagnosis/Indication Diagnosis SNOMED-CT Code Diagnosis ICD10 Code Diagnosis Note [id number] Yung Felipe DO Main Office [address] [place] [address] 12/27/2020 13:24:24 12/27/2020 14:00:19 Evaluation of semen fertility 645607911 N46.9 semen analysis [id number] Yung Felipe DO Main Office [address] [place] [address] 07/04/2021 14:47:56 07/04/2021 16:00:05 Evaluation of semen fertility 108289955 N46.9 semen analysis [id number] NAA Mcgee Main Office [address] [place] [address] 05/31/2022 13:04:00 05/31/2022 13:50:01 Evaluation of semen fertility 196957292 N46.9 semen analysis + viability: analysis by Dr. Ruiz [id number] NAA Mcgee Main Office [address] [place] [address] 10/22/2023 13:58:48 10/22/2023 14:31:18 Evaluation of semen fertility 237120122 N46.9 semen analysis + viability: analysis by Dr. Ruiz Health Concerns Section Related Observation LastModified by Organization Detai ls LastModified Time None Recorded Concern Status LastModified by Organization Details LastModified Time None Recorded Advance Directives Directive None Recorded Payers Encounter Date Sequence Insurance Name Policy Number Policy Boyer Covered Member ID Boyer Member ID Guarantor Name 12/27/2020 1 *SELF PAY* Bl babs Justin 07/04/2021 1 *SELF PAY* Bl babs Justin 05/31/2022 1 *SELF PAY* Bl babs Justin 10/22/2023 1 *SELF PAY* Bl babs Justin Notes Date Note Type Note Provider Name and Address Organization Details Recorded Time 12/27/2020 text/html semen analysis Yung Felipe DO [address], [place], [address], [facility], 08/06/2021 23:24:22 05/31/2022 text/html semen analysis + viability NAA Mcgee [address], [place], [address], [facility], 05/31/2022 13:57:30 10/22/2023 text/html semen analysis NAA Mcgee [address], [place], [address], [facility], 10/22/2023 16:29:00
[2024-08-22 15:10] LABS: Microscopic, Urine URINE MICROSCOPIC (MICROSCOPIC)
[2024-08-22 15:47] LABS: Appearance,Urine CLEAR (Clear); Blood, Urine Negative (Negative); Color,Urine YELLOW (Yellow); Glucose,Urine (UA) Negative (Negative); Ketones,Urine Negative (Negative); Leukocyte Esterase,Urine Negative (Negative); Nitrate,Urine Negative (Negative); Protein,Urine Negative (Negative); Specific Gravity, Urine 1.015 (1.005-1.030); Urobilinogen,Urine 0.2 EU/dl (0.2)
[2024-08-22 15:55] LABS: Microalbumin/Creatinine Ratio 5.2
[2024-08-22 16:00] LABS: INR 1.58 (0.9-1.1); Prothrombin Time 16.9 seconds (10.1-12.5)
[2024-08-22 16:04] LABS: Creatinine,Urine Random 134 mg/dL (Not Estab.)
[2024-08-22 16:09] LABS: Bilirubin,Urine 3+ (Negative)
[2024-08-22 16:22] LABS: Chloride 109 mmol/L (98-107); Potassium 3.2 mmoL/L (3.5-5.1); Sodium 139 mmol/L (136-145)
[2024-08-22 16:25] LABS: Anion Gap 18.2 mEq/L (5-15); Blood Urea Nitrogen 36 mg/dl (9-20); Carbon Dioxide 15 mmol/L (22.0-30.0); Estimated Glomerular Filt Rate 25 ml/min (>60); GFR (African American) 30 ML/MIN (>60)
[2024-08-22 16:25] LABS: Albumin Level 3.4 g/dl (3.5-5.0); Chloride 109 mmol/L (98-107); Potassium 3.3 mmoL/L (3.5-5.1); Sodium 139 mmol/L (136-145)
[2024-08-22 16:26] LABS: Glucose 116 mg/dl (74-100)
[2024-08-22 16:28] LABS: Alanine Aminotransferase 58 U/L (12-78); Alkaline Phosphatase 157 U/L (38-126); Anion Gap 18.3 mEq/L (5-15); Aspartate Amino Transferase 117 U/L (17-59); Bilirubin, Conjugated 15.5 mg/dL (0.0-0.3); Blood Urea Nitrogen 35 mg/dl (9-20); Carbon Dioxide 15 mmol/L (22.0-30.0); Estimated Glomerular Filt Rate 27 ml/min (>60); GFR (African American) 33 ML/MIN (>60); Phosphorous 3.3 mg/dl (2.5-4.5); Total Protein,Serum 7.1 g/dl (6.3-8.2)
[2024-08-22 16:29] LABS: Calcium 8.9 mg/dl (8.4-10.2); Glucose 116 mg/dl (74-100)
[2024-08-22 16:50] LABS: Bacteria,Urine Trace /lpf
[2024-08-22 16:51] LABS: Squamous Epithelial Cell,Urine Occasional #/hpf (0-5)
[2024-08-22 17:27] LABS: Bilirubin,Total 32.2 mg/dl (0.2-1.3)
[2024-08-22 19:54] LABS: Bilirubin,Direct 15.3 mg/dl (0.0-0.4); Bilirubin,Indirect 16.9 mg/dL (0.0-0.9)
[2024-08-31 10:16] LABS: Phosphatidylethanol (PEth) NEGATIVE
== END 2024-08-22 23:59 | disposition home or self-care (01) ==
LOC: LAB 14:45
PROVIDERS: PCP Nurse Practitioner Family; Visit Provider Internal Medicine Nephrology
DX: K70.30 Alcoholic cirrhosis of liver without ascites (principal); N17.9 Acute kidney failure, unspecified
CPT/HCPCS: 36415; 80048; 80069; 80076; 80321; 81001; 82043; 82570; 85610

== ENCOUNTER 2024-08-26 10:49 | Outpatient (CLI) | payer OTHER, SELFPAY ==
--- OUTSIDE RECORDS SUMMARY | 2024-08-26 10:52 | XMS_ITS | Data Portability ---
Author Organization [facility],, Main Office Address [address] [place] [address] Assessment No assessment recorded. Plan of Treatment [...] Available No t Available BD Regular Bevel Painter 18 gauge x 1 active Not Available [...] Updated DateTime 12/27/2020 99.5 [degF] Cuca Strickland [facility], 12/27/2020 13:41:33 Date Recorded Body weight Heart rate Body temperature Systolic blood pressure Diastolic blood pressure Provider Name and Address Organization Details Last Updated DateTime 04/03/2022 073415. 95 g 93 /min 97.6 [degF] 114 mm[Hg] 83 mm[Hg] Ashley Wallace [facility] FERT[facility] AND [facility], 2 14:42:57 Date Recorded Body height Body mass index (BMI) Body weight Heart rate Body temperature Systolic blood pressure Diastolic blood pressure Provider Name and Address Organization Details Last Updated DateTime 3 193.04 cm 29.1 kg/m2 088477. 58 g 112 /min 97.7 [degF] 141 mm[Hg] 84 mm[Hg] [facility] FERTILITY AND GYNECOLOGY, 3 13:14:11 Date Recorded Body height Body mass index (BMI) Body weight Heart rate Body temperature Systolic blood pressure Diastolic blood pressure Provider Name and Address Organization Details Last Updated DateTime 4 193.04 cm 30.4 kg/m2 135189. 09 g 92 /min 97.5 [degF] 176 mm[Hg] 104 mm[Hg] [facility] FERT[facility] AND GYNECOLOGY, 14:06:31 Social History None recorded. Functional Status None recorded. Mental Status None recorded. Family History Nothing Reported. Medical History No medical history recorded. Past Encounters Encounter ID Performer Location Encounter Start Date Encounter Closed Date Diagnosis/Indication Diagnosis SNOMED-CT Code Diagnosis ICD10 Code Diagnosis Note [id number] Yung Felipe DO Main Office [address] [place] [address] 12/27/2020 13:24:24 12/27/2020 14:00:19 Evaluation of semen fertility 271174306 N46.9 semen analysis [id number] Yung Felipe DO Main Office [address] [place] [address] 07/04/2021 14:47:56 07/04/2021 16:00:05 Evaluation of semen fertility 641234877 N46.9 semen analysis [id number] NAA Mcgee Main Office [address] [place] [address] 05/31/2022 13:04:00 05/31/2022 13:50:01 Evaluation of semen fertility 682111107 N46.9 semen analysis + viability: analysis by Dr. Ruiz [id number] NAA Mcgee Main Office [address] [place] [address] 10/22/2023 13:58:48 10/22/2023 14:31:18 Evaluation of semen fertility [id number] N46.9 semen analysis + viability: analysis by [...] Yung Felipe DO [address], [place], [address], [facility] GYNECOLOGY, 08/06/2021 23:24:22 05/31/2022 text/html semen analysis + viability NAA Mcgee [address], [place], [address], [facility] FERT[facility] GYNECOLOGY, 05/31/2022 13:57:30 10/22/2023 text/html semen analysis NAA Mcgee [address], [place], [address], [facility]ERT[facility] GYNECOLOGY, 10/22/2023 16:29:00
--- NOTE | 2024-08-26 10:54 | US_ITS ---
FINAL REPORT TECHNIQUE: Sonographic images of the abdomen were obtained in all four quadrants. CLINICAL HISTORY: HEPATIC CIRRHOSIS COMPARISON: 08/30/2023 FINDINGS: LIVER: Nodular liver consistent with cirrhosis. The liver has decreased in size since the previous exam. The portal vein is patent; however, there is hepatofugal flow. There is a recanalized paraumbilical vein. GALLBLADDER: The gallbladder is mildly distended. Gallstones are noted in the gallbladder. There is gallbladder wall thickening but this is nonspecific in the setting of ascites. The common duct measures 6 mm. This is within normal limits for age. PANCREAS: Not visualized. RIGHT KIDNEY: 11.0 cm. There does appear to be mild right hydronephrosis. LEFT KIDNEY: 12.4 cm. No hydronephrosis, mass or stone. SPLEEN: Enlarged measuring 18.5 cm. No focal splenic lesion. AORTA/IVC: Not visualized. OTHER: Small to moderate ascites. IMPRESSION: Cirrhosis with splenomegaly and ascites consistent with portal hypertension. There is reversal of flow in the portal vein. Gallstones. Nonspecific gallbladder wall thickening in the setting of ascites. Reviewed, Interpreted and Dictated by Funmilayo eWsley MD Transcribed by Kely Gomez Authenticated and . [facility]
[2024-08-26 12:20] LABS: INR 1.78 (0.9-1.1); Prothrombin Time 18.8 seconds (10.1-12.5)
[2024-08-26 12:32] LABS: Alanine Aminotransferase 63 U/L (12-78); Albumin Level 3.3 g/dl (3.5-5.0); Alkaline Phosphatase 169 U/L (38-126); Aspartate Amino Transferase 108 U/L (17-59); Bilirubin, Conjugated 15.2 mg/dL (0.0-0.3); Bilirubin,Unconjugated 5.6 mg/dL (0.0-1.1); Blood Urea Nitrogen 28 mg/dl (9-20); Calcium 9.3 mg/dl (8.4-10.2); Carbon Dioxide 13 mmol/L (22.0-30.0); Chloride 108 mmol/L (98-107); Estimated Glomerular Filt Rate 30 ml/min (>60); GFR (African American) 36 ML/MIN (>60); Glucose 92 mg/dl (74-100); Phosphorous 3.7 mg/dl (2.5-4.5); Sodium 137 mmol/L (136-145); Total Protein,Serum 7.2 g/dl (6.3-8.2)
[2024-08-26 12:44] LABS: Bilirubin,Total 30.8 mg/dl (0.2-1.3)
[2024-08-26 13:33] LABS: Anion Gap 19.2 mEq/L (5-15); Potassium 3.2 mmoL/L (3.5-5.1)
[2024-08-26 13:47] LABS: Bilirubin,Indirect 15.8 mg/dL (0.0-0.9)
== END 2024-08-26 23:59 | disposition home or self-care (01) ==
LOC: RAD 10:50
PROVIDERS: PCP Internal Medicine Adolescent Medicine; Visit Provider Nurse Practitioner Family
DX: K70.30 Alcoholic cirrhosis of liver without ascites (principal)
CPT/HCPCS: 36415; 76700; 80069; 80076; 85610

== ENCOUNTER 2024-08-27 10:23 | Outpatient (CLI) | payer OTHER, SELFPAY ==
[2024-08-27 12:35] VITALS: BP 141/72; PULSE 82; RESP 17; TEMP 36.3; O2SAT 100
[2024-08-27] MEDS: 0.9 % SODIUM CHLORIDE 50 ML 100 ML IV (12:36)
[2024-08-27] MEDS: ALBUMIN HUMAN 37.5 GM/150 ML BAG IV ×2 (12:36→13:07)
[2024-08-27 13:05] VITALS: BP 154/68; PULSE 80; RESP 17; O2SAT 100
[2024-08-27 13:35] VITALS: BP 151/76; PULSE 84; RESP 16
[2024-08-27 14:05] VITALS: BP 126/68; PULSE 77; RESP 16
== END 2024-08-27 14:05 | disposition home or self-care (01) ==
LOC: RAD 10:24 → INF 11:48
PROVIDERS: PCP Nurse Practitioner Family; Visit Provider Nurse Practitioner Family
DX: K74.60 Unspecified cirrhosis of liver (principal)
CPT/HCPCS: 49083; 96365; P9047

== ENCOUNTER 2024-09-16 09:32 | Outpatient (CLI) | payer OTHER, SELFPAY ==
--- OUTSIDE RECORDS SUMMARY | 2024-09-16 09:36 | XMS_ITS | Data Portability ---
Author Organization [facility],, Main Office Address [address] [place] [address] Assessment No assessment recorded. Plan of Treatment [...] Available No t Available BD Regular Bevel [place] 18 gauge x 1 active Not Available [...] Updated DateTime 12/27/2020 99.5 [degF] Cuca Strickland [facility], 12/27/2020 13:41:33 Date Recorded Body weight Heart rate Body temperature Systolic blood pressure Diastolic blood pressure Provider Name and Address Organization Details Last Updated DateTime 04/03/2022 363153. 95 g 93 /min 97.6 [degF] 114 mm[Hg] 83 mm[Hg] Ashley Wallace [facility], 2 14:42:57 Date Recorded Body height Body mass index (BMI) Body weight Heart rate Body temperature Systolic blood pressure Diastolic blood pressure Provider Name and Address Organization Details Last Updated DateTime 3 193.04 cm 29.1 kg/m2 816805. 58 g 112 /min 97.7 [degF] 141 mm[Hg] 84 mm[Hg] [facility], 3 13:14:11 Date Recorded Body height Body mass index (BMI) Body weight Heart rate Body temperature Systolic blood pressure Diastolic blood pressure Provider Name and Address Organization Details Last Updated DateTime 4 193.04 cm 30.4 kg/m2 305208. 09 g 92 /min 97.5 [degF] 176 mm[Hg] 104 mm[Hg] [facility], 14:06:31 Social History None recorded. Functional Status None recorded. Mental Status None recorded. Family History Nothing Reported. Medical History No medical history recorded. Past Encounters Encounter ID Performer Location Encounter Start Date Encounter Closed Date Diagnosis/Indication Diagnosis SNOMED-CT Code Diagnosis ICD10 Code Diagnosis Note [id number] Yung Felipe DO Main Office [address] [place] [address] 12/27/2020 13:24:24 12/27/2020 14:00:19 Evaluation of semen fertility 555067326 N46.9 semen analysis [id number] Yung Felipe DO Main Office [address] [place] [address] 07/04/2021 14:47:56 07/04/2021 16:00:05 Evaluation of semen fertility 885005523 N46.9 semen analysis [id number] Yung Felipe DO Main Office [address] [place] [address] 05/31/2022 13:04:00 05/31/2022 13:50:01 Evaluation of semen fertility 125936946 N46.9 semen analysis + viability: analysis by Dr. Ruiz [id number] Yung Felipe DO Main Office [address] [facility] [place] [address] 10/22/2023 13:58:48 10/22/2023 14:31:18 Evaluation of semen fertility 922343422 N46.9 semen analysis + viability: analysis by [...] Yung Felipe DO [address], [place], [address], [facility], 08/06/2021 23:24:22 05/31/2022 text/html semen analysis + viability NAA Mcgee [address], [place], [address], [facility], 05/31/2022 13:57:30 10/22/2023 text/html semen analysis NAA Mcgee [address], [place], [address], [facility], 10/22/2023 16:29:00
--- NOTE | 2024-09-16 09:39 | US_ITS ---
FINAL REPORT CLINICAL HISTORY: CIRRHOSIS OF LIVER W/ASCITES -- paracentesis -- shayy espino -- 9000ml FINDINGS: ULTRASOUND-GUIDED PARACENTESIS HISTORY:Ascites ATTENDING PHYSICIAN: Dr. Wesley PHYSICIAN SOCIAL MEDIA MARKETING MANAGER: Shayy Salas PA-C FINDINGS: After informed consent was obtained and timeout procedure performed, fluid was localized in the right lower quadrant under ultrasound guidance and marked on the skin appropriately. The patient was then prepped and draped in the usual sterile fashion and the skin was anesthetized with 1% lidocaine. An ultrasound guided paracentesis was then performed using a Turkel needle. Approximately 9 liters of fluid was removed. No fluid was sent to lab. The patient tolerated the procedure well and there were no immediate complications. IMPRESSION: Ultrasound guided right lower quadrant paracentesis as discussed above. Films reviewed , interpreted and dictated by Dr. Funmilayo Wesley. Transcribed by Shayy Salas PA-C. Reviewed, Interpreted and Dictated by Funmilayo Wesley MD Transcribed by NAA Thakur Authenticated and [facility]
--- NOTE | 2024-09-16 10:20 | PC.NURSE ---
1020-dr. trinh at bedside for wound evaluation
[2024-09-16 11:56] VITALS: BMI 30.4
[2024-09-16 12:25] VITALS: BP 138/75; PULSE 86; RESP 18; O2SAT 100
[2024-09-16] MEDS: ALBUMIN HUMAN 37.5 GM/150 ML BAG IV (12:25)
[2024-09-16 12:27] LABS: Appearance,Body Fld. Slightly cloudy; RBC,Body Fluid < 1000 cells/uL (< 10 X 10^3); Source, Body Fld. Paracentesis Fluid; TNC,Body Fluid 108 cells/uL (< 1000); Volume,Body Fld. 9000 mL
[2024-09-16 12:28] LABS: Basophils # 0.1 K/mm3 (0-0.2); Basophils % 0.7 % (0.1-2.0); Eosinophils # 0.2 Kmm3 (0.0-0.4); Eosinophils % 1.5 % (0.1-12.0); Hematocrit 25.8 % (42.0-52.0); Hemoglobin 9.1 g/dL (14.1-18.0); Immature Granulocytes # 0.05 10^3uL; Immature Granulocytes % 0.5 %; Lymphocytes # 0.8 K/mm3 (0.7-4.5); Mean Corpuscular HGB Conc 35.3 g/dL (31.8-35.4); Mean Corpuscular Hemoglobin 36.1 pg (27.0-31.2); Mean Corpuscular Volume 102.4 fl (80-94); Mean Platelet Volume 12.3 fl (7.4-10.4); Monocytes # 0.5 K/mm3 (0.1-1.0); Monocytes % 5.1 % (1.7-9.3); Neutrophils # 8.4 K/mm3 (1.8-7.8); Neutrophils % 84.2 % (37.0-80.0); Nucleated Red Blood Cells # 0 10^3/uL; Nucleated Red Blood Cells % 0 %; Red Blood Count 2.52 M/mm3 (4.60-6.20); Red Cell Distribution Width 21.4 % (11.5-17.5); White Blood Count 9.9 K/mm3 (4.8-10.8)
[2024-09-16] MEDS: SODIUM CHLORIDE 0.9% 50ML BAG 50 ML IV (12:35)
[2024-09-16 12:36] LABS: Albumin Level 3.4 g/dl (3.5-5.0); Chloride 110 mmol/L (98-107); Potassium 3.3 mmoL/L (3.5-5.1); Sodium 136 mmol/L (136-145)
[2024-09-16 12:37] LABS: INR 1.89 (0.9-1.1); Prothrombin Time 19.9 seconds (10.1-12.5)
[2024-09-16 12:39] LABS: Alanine Aminotransferase 40 U/L (12-78); Albumin/Globulin Ratio 1.2 (1.1-1.8); Alkaline Phosphatase 144 U/L (38-126); Anion Gap 14.3 mEq/L (5-15); Aspartate Amino Transferase 76 U/L (17-59); Bilirubin,Total 19.8 mg/dl (0.2-1.3); Blood Urea Nitrogen 31 mg/dl (9-20); Calcium 9.3 mg/dl (8.4-10.2); Carbon Dioxide 15 mmol/L (22.0-30.0); Creatinine Clearance Estimated 68 mL/min (50-200); Estimated Glomerular Filt Rate 31 ml/min (>60); GFR (African American) 38 ML/MIN (>60); Globulin 2.9 g/dL (1.3-3.2); Glucose 97 mg/dl (74-100); Total Protein,Serum 6.3 g/dl (6.3-8.2)
[2024-09-16 12:55] LABS: Platelet Count 47 K/mm3 (142-424)
[2024-09-16 12:58] LABS: Mononuclear WBCs,Body Fluid 96 %; Polynuclear WBC,Body Fluid 4 %
[2024-09-16 13:25] VITALS: BP 130/71; PULSE 84; RESP 18; O2SAT 99
[2024-09-16 13:55] VITALS: BP 126/60; PULSE 80; RESP 18; O2SAT 100
== END 2024-09-16 13:55 | disposition home or self-care (01) ==
LOC: RAD 09:34
PROVIDERS: PCP Nurse Practitioner Family; Visit Provider Student in an Organized Health Care Education/Training Program
DX: K70.31 Alcoholic cirrhosis of liver with ascites (principal)
CPT/HCPCS: 49083; 80053; 85025; 85610; 89051; 96365; P9047

== ENCOUNTER 2024-09-22 08:26 | Outpatient (CLI) | payer OTHER, SELFPAY ==
--- NOTE | 2024-09-22 08:31 | US_ITS ---
FINAL REPORT CLINICAL HISTORY: ASCITES -- PARACENTESIS -- JONNATHAN JACOME -- 7550ML FINDINGS: ULTRASOUND-GUIDED PARACENTESIS HISTORY: Ascites ATTENDING PHYSICIAN: Dr. Li PHYSICIAN WIRE DRAWING SETTER: Jonnathan Shah PA-C FINDINGS: After informed consent was obtained and timeout procedure performed, fluid was localized in the right lower quadrant under ultrasound guidance and marked on the skin appropriately. The patient was then prepped and draped in the usual sterile fashion and the skin was anesthetized with 1% lidocaine. An ultrasound guided paracentesis was then performed using a Turkel needle. Approximately 7.55 liters of clear yellow fluid was reremoved. Portion of the fluid was sent to lab for preordered studies. The patient tolerated the procedure well and there were no immediate complications. IMPRESSION: Ultrasound guided right lower quadrant paracentesis as discussed above. Reviewed, Interpreted and Dictated by Donte Li MD Transcribed by NAA Blari Authenticated and [facility]
[2024-09-22 10:46] VITALS: BP 151/67; PULSE 88; RESP 18; O2SAT 100
[2024-09-22] MEDS: SODIUM CHLORIDE 0.9% 50ML BAG 50 ML IV (10:46)
[2024-09-22] MEDS: ALBUMIN HUMAN 12.5 GM/50 ML BAG IV (10:46)
[2024-09-22 11:40] VITALS: BP 130/58; PULSE 89; RESP 18; O2SAT 100
[2024-09-22 13:08] LABS: Appearance,Body Fld. Normal; Mononuclear WBCs,Body Fluid 89 %; Polynuclear WBC,Body Fluid 11 %; RBC,Body Fluid 1000 cells/uL (< 10 X 10^3); Source, Body Fld. Paracentesis Fluid; TNC,Body Fluid 78 cells/uL (< 1000); Volume,Body Fld. 7550 mL
== END 2024-09-22 11:40 | disposition home or self-care (01) ==
LOC: RAD 08:26 → INF 10:20
PROVIDERS: PCP Nurse Practitioner Family; Referring Provider Nurse Practitioner Family; Visit Provider Student in an Organized Health Care Education/Training Program
DX: N28.89 Other specified disorders of kidney and ureter (principal)
CPT/HCPCS: 49083; 88104; 89051; 96365; P9047

== ENCOUNTER 2024-09-26 07:31 | Outpatient (CLI) | payer OTHER, SELFPAY ==
--- NOTE | 2024-09-26 08:10 | US_ITS ---
FINAL REPORT CLINICAL HISTORY: ASCITES -- paracentesis -- jonnathan espino -- [id number] FINDINGS: ULTRASOUND-GUIDED PARACENTESIS HISTORY: Ascites ATTENDING PHYSICIAN: Dr. Wesley PHYSICIAN FISHER: Jonnathan Shah PA-C FINDINGS: After informed consent was obtained and timeout procedure performed, fluid was localized in the right lower quadrant under ultrasound guidance and marked on the skin appropriately. The patient was then prepped and draped in the usual sterile fashion and the skin was anesthetized with 1% lidocaine. An ultrasound guided paracentesis was then performed using a Turkel needle. Approximately 6.25 liters of clear yellow fluid was removed. Sample was sent to lab. The patient tolerated the procedure well and there were no immediate complications. IMPRESSION: Ultrasound guided right lower quadrant paracentesis as discussed above. Reviewed, Interpreted and Dictated by Funmilayo Wesley MD Transcribed by NAA Blair Authenticated and . [facility]
[2024-09-26 09:36] VITALS: BMI 30.4
[2024-09-26 10:00] VITALS: BP 133/60; PULSE 70; RESP 18; TEMP 36.7; O2SAT 99
[2024-09-26] MEDS: ALBUMIN HUMAN 12.5 GM/50 ML BAG IV (10:00)
[2024-09-26] MEDS: SODIUM CHLORIDE 0.9% 50ML BAG 50 ML IV (10:00)
[2024-09-26 10:04] LABS: Basophils # 0.1 K/mm3 (0-0.2); Basophils % 0.9 % (0.1-2.0); Eosinophils # 0.2 Kmm3 (0.0-0.4); Hematocrit 26.7 % (42.0-52.0); Hemoglobin 9.1 g/dL (14.1-18.0); Immature Granulocytes # 0.03 10^3uL; Immature Granulocytes % 0.4 %; Lymphocytes # 0.8 K/mm3 (0.7-4.5); Lymphocytes % 12.1 % (10-50); Mean Corpuscular HGB Conc 34.1 g/dL (31.8-35.4); Mean Corpuscular Hemoglobin 35.3 pg (27.0-31.2); Mean Corpuscular Volume 103.5 fl (80-94); Mean Platelet Volume 12.6 fl (7.4-10.4); Monocytes # 0.6 K/mm3 (0.1-1.0); Monocytes % 9.3 % (1.7-9.3); Neutrophils % 74.3 % (37.0-80.0); Nucleated Red Blood Cells # 0 10^3/uL; Nucleated Red Blood Cells % 0 %; Platelet Count 51 K/mm3 (142-424); Red Blood Count 2.58 M/mm3 (4.60-6.20); Red Cell Distribution Width 18.6 % (11.5-17.5); Red Cell Distribution Width-SD 71.4 fL; White Blood Count 6.8 K/mm3 (4.8-10.8)
[2024-09-26 10:07] LABS: Albumin Level 3.1 g/dl (3.5-5.0); Chloride 105 mmol/L (98-107); Potassium 4.1 mmoL/L (3.5-5.1); Sodium 131 mmol/L (136-145)
[2024-09-26 10:09] LABS: Blood Urea Nitrogen 43 mg/dl (9-20); Creatinine Clearance Estimated 52 mL/min (50-200); Estimated Glomerular Filt Rate 23 ml/min (>60); GFR (African American) 28 ML/MIN (>60)
[2024-09-26 10:10] LABS: Alanine Aminotransferase 37 U/L (12-78); Alkaline Phosphatase 198 U/L (38-126); Anion Gap 14.1 mEq/L (5-15); Aspartate Amino Transferase 67 U/L (17-59); Bilirubin,Total 15.8 mg/dl (0.2-1.3); Calcium 9.4 mg/dl (8.4-10.2); Carbon Dioxide 16 mmol/L (22.0-30.0); Globulin 3.1 g/dL (1.3-3.2); Glucose 97 mg/dl (74-100); Total Protein,Serum 6.2 g/dl (6.3-8.2)
[2024-09-26 10:19] LABS: Source, Body Fld. Paracentesis Fluid
[2024-09-26 10:21] LABS: Appearance,Body Fld. Hazy; Volume,Body Fld. 6250 mL
[2024-09-26 10:22] LABS: TNC,Body Fluid 42 cells/uL (< 1000)
[2024-09-26 10:23] LABS: RBC,Body Fluid 1 cells/uL (< 10 X 10^3)
[2024-09-26 10:35] LABS: INR 1.72 (0.9-1.1); Prothrombin Time 18.3 seconds (10.1-12.5)
[2024-09-26 10:40] VITALS: BP 130/59; PULSE 71; RESP 18; O2SAT 100
[2024-09-26 10:53] LABS: Activated Partial Thrombo Time 48.5 seconds (22.8-30.6)
[2024-09-26 12:47] LABS: Mononuclear WBCs,Body Fluid 84 %; Polynuclear WBC,Body Fluid 6 %
== END 2024-09-26 10:45 | disposition home or self-care (01) ==
LOC: RAD 07:32 → INF 09:20
PROVIDERS: Student in an Organized Health Care Education/Training Program; PCP Nurse Practitioner Family; Visit Provider Student in an Organized Health Care Education/Training Program
DX: R18.8 Other ascites (principal)
CPT/HCPCS: 49083; 80053; 85025; 85610; 85730; 89051; 96365; P9047

== ENCOUNTER 2024-09-30 08:27 | Outpatient (CLI) | payer OTHER, SELFPAY ==
--- NOTE | 2024-09-30 08:31 | US_ITS ---
FINAL REPORT CLINICAL HISTORY: ASCITES -- LT SIDE -- 6650 ML REMOVED -- NARAYAN JACOME FINDINGS: ULTRASOUND-GUIDED PARACENTESIS HISTORY: Ascites, cirrhosis. ATTENDING PHYSICIAN: Dr. Martins PHYSICIAN FORESTRY LABORER: Gladys Maynard PA-C TECHNIQUE: Informed consent was obtained from the patient. A time-out procedure was performed prior to beginning. Appropriate pocket was localized for drainage. The patient was prepped and draped in a routine sterile fashion. Local anesthesia was achieved with 1% lidocaine. Using imaging guidance with images acquired, an 18-gauge sheath needle was directed into the peritoneal fluid. Approximately 6,650 mL of clear yellow fluid was aspirated. 60 mL of fluid was sent to the lab for analysis. The patient tolerated the procedure well and left the department in good condition. Ultrasound guidance was utilized for this procedure. IMPRESSION: Successful ultrasound guided diagnostic and therapeutic paracentesis as above. Reviewed, Interpreted and Dictated by Michele Martins MD Transcribed by Gladys Maynard PA-C Authenticated and [facility]
[2024-09-30] MEDS: SODIUM CHLORIDE 0.9% 50ML BAG 50 ML IV (10:39)
[2024-09-30] MEDS: ALBUMIN HUMAN 12.5 GM/50 ML BAG IV (10:39)
[2024-09-30 10:45] VITALS: BP 128/68; PULSE 71; RESP 18; TEMP 36.7; O2SAT 100
[2024-09-30 11:08] LABS: Appearance,Body Fld. Normal; Source, Body Fld. Paracentesis Fluid
[2024-09-30 11:09] LABS: Volume,Body Fld. 6650 mL
[2024-09-30 11:20] VITALS: BP 121/65; PULSE 71
[2024-09-30 13:02] LABS: TNC,Body Fluid 52 cells/uL (< 1000)
[2024-09-30 13:03] LABS: RBC,Body Fluid 1 cells/uL (< 10 X 10^3)
[2024-09-30 13:36] LABS: Mononuclear WBCs,Body Fluid 96 %; Polynuclear WBC,Body Fluid 4 %
== END 2024-09-30 11:31 | disposition home or self-care (01) ==
LOC: RAD 08:28 → INF 10:19
PROVIDERS: PCP Nurse Practitioner Family; Visit Provider Student in an Organized Health Care Education/Training Program
DX: K74.60 Unspecified cirrhosis of liver (principal)
CPT/HCPCS: 49083; 89051; 96365; P9047

== ENCOUNTER 2024-10-03 07:33 | Outpatient (CLI) | payer OTHER, SELFPAY ==
--- NOTE | 2024-10-03 07:37 | US_ITS ---
FINAL REPORT CLINICAL HISTORY: ASCITES-- NARAYAN JACOME-- 6000 ML-- RT SIDE FINDINGS: ULTRASOUND-GUIDED PARACENTESIS HISTORY: Ascites, cirrhosis. ATTENDING PHYSICIAN: Dr. Martins PHYSICIAN ROUTING MACHINE OPERATOR: Gladys Maynard PA-C TECHNIQUE: Informed consent was obtained from the patient. A time-out procedure was performed prior to beginning. Appropriate pocket was localized for drainage. The patient was prepped and draped in a routine sterile fashion. Local anesthesia was achieved with 1% lidocaine. Using imaging guidance with images acquired, an 18-gauge sheath needle was directed into the peritoneal fluid. Approximately 6 liters of clear yellow fluid was aspirated. 60 mL of fluid was sent to the lab for analysis. The patient tolerated the procedure well and left the department in good condition. Ultrasound guidance was utilized for this procedure. IMPRESSION: Successful ultrasound guided diagnostic and therapeutic paracentesis as above. Reviewed, Interpreted and Dictated by Michele Martins MD Transcribed by Gladys Maynard PA-C Authenticated and . [facility]
[2024-10-03] MEDS: SODIUM CHLORIDE 0.9% 50ML BAG 50 ML IV (09:37)
[2024-10-03] MEDS: ALBUMIN HUMAN 12.5 GM/50 ML BAG IV (09:38)
[2024-10-03 09:45] VITALS: BP 131/48; PULSE 94; RESP 17; O2SAT 100
[2024-10-03 10:07] LABS: Appearance,Body Fld. Normal; RBC,Body Fluid 2000 cells/uL (< 10 X 10^3); Source, Body Fld. Paracentesis Fluid; TNC,Body Fluid 78 cells/uL (< 1000)
[2024-10-03 10:08] LABS: Mononuclear WBCs,Body Fluid 79 %; Polynuclear WBC,Body Fluid 21 %
[2024-10-03 10:10] LABS: Volume,Body Fld. 6000 mL
[2024-10-03 10:15] VITALS: BP 139/49; PULSE 88; RESP 16
== END 2024-10-03 10:30 | disposition home or self-care (01) ==
LOC: RAD 07:33 → INF 09:11
PROVIDERS: PCP Nurse Practitioner Family; Visit Provider Student in an Organized Health Care Education/Training Program
DX: K74.60 Unspecified cirrhosis of liver (principal)
CPT/HCPCS: 49083; 89051; 96365; P9047

== ENCOUNTER 2024-10-05 11:21 | Inpatient (IN) | payer OTHER, SELFPAY ==
[2024-10-05] VITALS (14 sets, daily range): BP systolic 117–137; BP diastolic 56–75; PULSE 91–100; RESP 11–18; TEMP 36.4–36.7; O2SAT 99–100; BMI 30.4
--- NOTE | 2024-10-05 11:35 | PC.NURSE ---
I notified resp that a VBG was sent up
--- NOTE | 2024-10-05 11:39 | XR_ITS ---
PROCEDURE INFORMATION: Exam: XR Chest Exam date and time: 10/05/2024 1:03 PM Age: 39 years old Clinical indication: Other: AMS; Additional info: AMS, unknown etiology TECHNIQUE: Imaging protocol: Radiologic exam of the chest. Views: 1 view. COMPARISON: CR XR CHEST PORTABLE 05/17/2020 6:36 PM FINDINGS: Lungs: Low lung volumes with bronchovascular crowding . No focal consolidation. Pleural spaces: No pneumothorax or pleural effusion. Heart/Mediastinum: Cardiomegaly. Mediastinal silhouette is unremarkable. Bones/joints: No acute osseous or soft tissue abnormality. IMPRESSION: 1. Low lung volumes with bronchovascular crowding and mild bibasilar subsegmental atelectasis. 2. Cardiomegaly.
--- NOTE | 2024-10-05 11:39 | CT_ITS ---
PROCEDURE INFORMATION: Exam: CT Abdomen And Pelvis Without Contrast Exam date and time: 10/05/2024 1:00 PM Age: 39 years old Clinical indication: Condition or disease; Liver condition; Cirrhosis; Additional info: AMS, h/o cirrhosis, recent paracentesis on 10/03/24 TECHNIQUE: Imaging protocol: Computed tomography of the abdomen and pelvis without contrast. Radiation optimization: All CT scans at this facility use at least one of these dose optimization techniques: automated exposure control; mA and/or kV adjustment per patient size (includes targeted exams where dose is matched to clinical indication); or iterative reconstruction. COMPARISON: CT ABDOMEN PELVIS WO CON 10/05/2024 1:00 PM FINDINGS: Lungs: See Heart finding. Heart: Low-density cardiac and aortic blood pool consistent with anemia. Cardiomegaly. No pericardial fluid. Mild diffuse interlobular septal thickening. Mild left basilar subsegmental atelectasis. Liver: Cirrhotic morphology of the liver. An isoattenuating round lesion/focal nodular outpouching is seen in the inferior right lobe on image 51 series 3, measuring 3.6 x 3.8 cm axial. Nonspecific. May represent focal regenerative nodule, fibrosis, or malignancy. No other focal lesion identified on this noncontrast study. Gallbladder and biliary ducts: Intra and extrahepatic bile ducts are unremarkable.. Cholelithiasis. Distended gallbladder. Pancreas: Normal. No ductal dilation. Spleen: Splenomegaly. Adrenal glands: Normal. No mass. Kidneys and ureters: Exophytic left renal mass with rim calcification medially measuring 2.7 x 1.7 cm in the left interpolar region. Incompletely evaluated on this noncontrast study. If MRI is obtained, attention to be paid on future imaging. Few nonobstructive calculi in the right kidney measuring up to 6 mm of the superior pole. Mild right pelvic ectasia. No distinct hydronephrosis. No left-sided renal calculi. No ureteral calculi or obstruction bilaterally. Stomach and bowel: No bowel obstruction or distinct acute inflammation. Appendix: No evidence of appendicitis. Intraperitoneal space: Moderate mesenteric edema. Moderate ascites. Vasculature: Reconstituted and enlarged paraumbilical vein. Multiple additional portosystemic collaterals are present. Lymph nodes: Unremarkable. No enlarged lymph nodes. Urinary bladder: Decompressed bladder. Reproductive: Unremarkable as visualized. Bones/joints: Unremarkable. No acute fracture. Soft tissues: Focal moderate fat stranding in the umbilical hernia. Moderate anasarca. Fluid containing right inguinal hernia. Fat containing left inguinal hernia. IMPRESSION: 1. Cirrhotic morphology of the liver. An isoattenuating round lesion/focal nodular outpouching is seen in the inferior right lobe on image 51 series 3, measuring 3.6 x 3.8 cm axial. Nonspecific. May represent focal regenerative nodule, fibrosis, or malignancy. No other focal lesion identified on this noncontrast study. Recommend MRI, ultrasound, or CT with contrast if feasible for complete evaluation. 2. Cholelithiasis. Distended gallbladder. 3. Exophytic left renal mass with rim calcification medially measuring 2.7 x 1.7 cm in the left interpolar region. Incompletely evaluated on this noncontrast study. If MRI is obtained, attention to be paid on future imaging. 4. No bowel obstruction or distinct acute inflammation. 5. Stigmata of portal hypertension. 6. Low-density cardiac and aortic blood pool consistent with anemia. COMMENTS: Consistent with the [employer]'s Incidental Findings Committee white paper (J Am Elba Radiol 2018): Any incidental renal lesion less than 1 cm or classified as too small to characterize, or any incidental cystic renal lesion characterized as simple-appearing, is likely benign. No follow-up imaging is recommended for these lesions per consensus recommendations based on imaging criteria.
--- NOTE | 2024-10-05 11:39 | CT_ITS ---
PROCEDURE INFORMATION: Exam: CT Head Without Contrast Exam date and time: 10/05/2024 12:55 PM Age: 39 years old Clinical indication: Altered mental status/memory loss; Additional info: AMS, h/o cirrhosis TECHNIQUE: Imaging protocol: Computed tomography of the head without contrast. Radiation optimization: All CT scans at this facility use at least one of these dose optimization techniques: automated exposure control; mA and/or kV adjustment per patient size (includes targeted exams where dose is matched to clinical indication); or iterative reconstruction. COMPARISON: MR CERVICAL SPINE WO/W CON 07/13/2023 4:55 PM FINDINGS: Brain: Matson-white matter differentiation and sulcation pattern is normal. There is normal density in the basal ganglia and thalamus. There is no intracranial hemorrhage. There are no pathologic extra-axial fluid collections. Cerebral ventricles: No ventriculomegaly. Paranasal sinuses: Visualized sinuses are unremarkable. No fluid levels. Mastoid air cells: Visualized mastoid air cells are well aerated. Bones: Unremarkable. No acute fracture. Soft tissues: Unremarkable. IMPRESSION: No acute intracranial pathology.
--- NOTE | 2024-10-05 11:42 | ECG_ITS ---
APPROVED REPORT Exam: Resting ECG HR:94 bpm ECG Measurements Heart Rate 94 AXES WY 190 P 90 QRSd 102 QRS -24 QT 403 T -6 QTc 455 Conclusion SINUS RHYTHM BORDERLINE LEFT AXIS DEVIATION [QRS AXIS < -20] MODERATE VOLTAGE CRITERIA FOR LVH, CONSIDER NORMAL VARIANT [MEETS CRITERIA IN ONE OF: R(aVL), S(V1), R(V5), R(V5/V6)+S(V1)] No STEMI Electronically signed by : SUZIE RALPH, 10/07/2024 19:59:24
[2024-10-05 11:44] LABS: Lactate Venous 1.6 mmol/L (0.4-2.0); VBG Base Excess -9.7 mmol/L (-2.4-2.3); VBG HCO3 17.2 mmol/L (23-30); VBG Oxygen Saturation 66.3 % (50-70); VBG PH 7.27 mmol/L (7.31-7.41); VBG PO2 37.3 mmol/L (28-40); VBG Total CO2 18.3 mmol/L (23-27)
[2024-10-05 11:47] LABS: Basophils # 0.1 K/mm3 (0-0.2); Basophils % 0.7 % (0.1-2.0); Eosinophils # 0.3 Kmm3 (0.0-0.4); Eosinophils % 2.7 % (0.1-12.0); Hematocrit 28.7 % (42.0-52.0); Hemoglobin 9.9 g/dL (14.1-18.0); Immature Granulocytes % 0.9 %; Lymphocytes # 1.2 K/mm3 (0.7-4.5); Lymphocytes % 10.5 % (10-50); Mean Corpuscular HGB Conc 34.5 g/dL (31.8-35.4); Mean Corpuscular Hemoglobin 35.1 pg (27.0-31.2); Mean Corpuscular Volume 101.8 fl (80-94); Mean Platelet Volume 12.3 fl (7.4-10.4); Monocytes # 1.2 K/mm3 (0.1-1.0); Monocytes % 10.3 % (1.7-9.3); Neutrophils # 8.7 K/mm3 (1.8-7.8); Neutrophils % 74.9 % (37.0-80.0); Nucleated Red Blood Cells # 0 10^3/uL; Nucleated Red Blood Cells % 0 %; Platelet Count 64 K/mm3 (142-424); Red Blood Count 2.82 M/mm3 (4.60-6.20); Red Cell Distribution Width 16.5 % (11.5-17.5); Red Cell Distribution Width-SD 61.2 fL; White Blood Count 11.7 K/mm3 (4.8-10.8)
[2024-10-05 11:53] LABS: Activated Partial Thrombo Time 45.4 seconds (22.8-30.6); INR 1.54 (0.9-1.1); Prothrombin Time 16.6 seconds (10.1-12.5)
[2024-10-05 12:10] LABS: Albumin Level 3.1 g/dl (3.5-5.0); Chloride 101 mmol/L (98-107); Potassium 4.2 mmoL/L (3.5-5.1); Sodium 129 mmol/L (136-145)
[2024-10-05 12:13] LABS: Alanine Aminotransferase 43 U/L (12-78); Alkaline Phosphatase 267 U/L (38-126); Ammonia < 9 umol/L (9-30); Anion Gap 15.2 mEq/L (5-15); Aspartate Amino Transferase 78 U/L (17-59); Blood Urea Nitrogen 62 mg/dl (9-20); Carbon Dioxide 17 mmol/L (22.0-30.0); Creatinine Clearance Estimated 43 mL/min (50-200); Estimated Glomerular Filt Rate 19 ml/min (>60); GFR (African American) 23 ML/MIN (>60); Globulin 3.2 g/dL (1.3-3.2); Total Protein,Serum 6.3 g/dl (6.3-8.2)
[2024-10-05 12:14] LABS: Calcium 9.1 mg/dl (8.4-10.2); Glucose 134 mg/dl (74-100); Lipase 97 U/L (23-300)
[2024-10-05 12:17] LABS: C-Reactive Protein 13.8 mg/L (0-4)
[2024-10-05 12:28] LABS: Troponin I 0.04 ng/ml (0.00-0.034)
[2024-10-05 12:32] LABS: T4 (Thyroxine) 3.9 ug/dl (5.53-11.0)
[2024-10-05 12:46] LABS: Thyroid Stimulating Hormone 1.31 uIU/mL (0.465-4.68)
--- NOTE | 2024-10-05 12:55 | ED_ITS ---
Discharge Plan Disposition Patient Disposition: Xfer Short-Term Hosp Condition: Fair Clinical Impressions Clinical Impression: Acute alteration in mental status, Cirrhosis, NADIYA (acute kidney injury), Ascites, Lung nodule Discharge ED Provider: Radha Ochoa General Adult HPI General Chief complaint: Altered Mental Status Stated complaint: Cirrhosis of the liver. Non-Verbal, Confused Time Seen by Provider: 10/05/24 11:28 Mode of Arrival: Ambulatory Source of Information: Patient and Spouse Description of Symptoms (Recalled from ER Triage Doc. by RN): pt presents to ED with spouse for confusion, weakness. pt is in end stage liver disease, pt follows with [facility] transplant team for possibilty of transplant. pts spouse reports that he stated that he felt ocnfused last night, pt was given double of his lactulose dose and pt did have 6 bms last night. pt began to have more confusion around 10 am this morning. History of Present Illness HPI narrative: This patient is a 39-year-old male with a history of cirrhosis, GERD, hypothyroidism, hypertension, hyperlipidemia presenting to the emergency department for evaluation with concern for altered mental status. According the patient's , he started getting confused and weak last night so she doubled his lactulose, but he was way worse today having difficulty talking and responding. She states this happened to him before when he had SBP and was admitted to the ICU at [facility], where he follows for this. She notes that he is awaiting placement on the liver transplant list. No recent fevers or infectious symptoms noted, but he did complain of some mild abdominal pain last night according to her. Patient is very altered and does not contribute to history Related Data Home Medications ?Medication ?Instructions ?Recorded ?Confirmed bempedoic acid 180 mg-ezetimibe 10 1 tab PO DAILY Cholesterol 08/31/22 10/05/24 mg tablet (Nexlizet) lactulose 10 gram/15 mL oral 15 ml PO DAILY CIRRHOSIS 08/31/22 10/05/24 solution levothyroxine 75 mcg tablet 75 mcg PO DAILY HYPOTHYROIDISM 08/31/22 10/05/24 pantoprazole 40 mg tablet,delayed 40 mg PO DAILY GERD 08/31/22 10/05/24 release rifaximin 550 mg tablet (Xifaxan) 550 mg PO BID CIRRHOSIS 08/31/22 10/05/24 thiamine HCl (vitamin B1) 100 mg 100 mg PO DAILY Supplement 08/31/22 10/05/24 tablet ciprofloxacin HCl 500 mg tablet 500 mg PO DAILY 10/05/24 10/05/24 (Cipro) potassium chloride 20 mEq 40 meq PO DAILY 10/05/24 10/05/24 tablet,extended release sodium bicarbonate 650 mg tablet 1,300 mg PO TID 10/05/24 10/05/24 ursodiol 300 mg capsule 300 mg PO BID 10/05/24 10/05/24 Previous Rx's ?Medication ?Instructions ?Recorded diphenhydramine HCl 25 mg capsule 25 mg PO Q6HP PRN Itching #30 caps 01/30/23 triamcinolone acetonide 0.1 % 1 applic topical BID PRN itching 01/30/23 topical cream #30 grams Allergies Allergy/AdvReac Type Severity Reaction Status Date / Time No Known Allergies Allergy Verified 12/01/20 14:48 [facility] Disclaimer: The information contained in this section may have been updated after the patient was seen, as this information can be updated by other users. Medical History (Updated 10/05/24 @ 20:35 by Andrew Rodríguez MD) Gastric varices Esophageal varices GERD (gastroesophageal reflux disease) Hypothyroidism Cirrhosis Renal mass Hyperlipemia Hypertension Surgical History H/O endoscopy S/P cervical spinal fusion Family History (Updated 10/05/24 @ 16:35 by Sonya Carbajal RN) Other Cancer Social History (Updated 10/05/24 @ 16:36 by Sonya Carbajal RN) Smoking Status: Former smoker alcohol intake: never substance use type: denies use current occupational status: employed and other Travel in the last 8 weeks?: None household members: significant other housing: house Have you lived/traveled outside [place] in past 30 days?: No Contact w/someone who lives/traveled outside US past 30 days?: No Exposure to someone with infectious disease in past 14 days?: No Do you have a fever (greater than 100.4 F or 38 C)?: No Have you tested positive for COVID-19?: No Exposed to someone with COVID-19 in past 14 days?: No Do you have a sore throat?: No Do you have a cough?: No Do you have any weakness?: No Are you experiencing any nausea/vomitting?: No Do you have any diarrhea?: Yes Are you experiencing any unusual bleeding?: No Do you have any muscle aches/pain?: No Do you have any abdominal pain?: No Are you experiencing loss of taste or smell?: No Other Medical History Have you received the Pneumonia Vaccine: No ROS Obtained: Yes unobtainable due to mental status Physical Exam General General appearance: alert Comment: Alert, very confused, ill-appearing Head Head exam: atraumatic and normocephalic Eye Eye exam: Present normal appearance, PERRL and EOMI ENT ENT exam: Present mucous membranes dry Neck Neck exam: Present normal inspection and trachea midline Chest Chest inspection: Present normal inspection and symmetric chest wall rise Respiratory Respiratory exam: Present normal lung sounds bilaterally; Absent respiratory distress or wheezes Cardiovascular Cardiovascular exam: Present regular rate and normal rhythm Abdominal Exam Abdominal exam: Present distention and tenderness (RUQ); Absent guarding Extremities Exam Extremities exam: Present edema Back Exam Back exam: Present normal inspection Neurological Exam Neurological exam: Present alert, CN II-XII intact and other (Generally weak without any focal deficits, very confused with speech unable to answer simple questions); Absent oriented X3 or motor sensory deficit Psychiatric Psychiatric exam: Present flat affect Skin Skin exam: Present other (Jaundice with scleral icterus) Medical Decision Making Medical Records Screening: Per USPSTF and CDC recommendations, given the prevalence of disease in our region, it is our hospital?s policy to screen for HIV and viral Hepatitis for all patients aged 18 and over and those with ongoing risk factors. Kristofer Inquiry Pt receiving controlled substance: No Vital Signs: 10/05/24 11:27 10/05/24 11:33 10/05/24 11:49 Temperature 97.8 F Temperature Source Oral Pulse Rate 99 H 97 H Pulse Rate [Left Radial] 100 H Respiratory Rate 12 12 Blood Pressure 125/68 126/73 Blood Pressure [Right Arm] 125/68 Blood Pressure Mean [Right Arm] 87 Blood Pressure Source [Right Arm] Automatic Cuff Blood Pressure Position [Right Arm] Supine 02 Sat by Pulse Oximetry 100 100 100 Oxygen Delivery Method Room Air 10/05/24 12:00 10/05/24 12:50 10/05/24 13:30 Temperature Temperature Source Pulse Rate 97 H 100 H 98 H Pulse Rate [Left Radial] Respiratory Rate 11 L 13 12 Blood Pressure 130/70 128/75 117/70 Blood Pressure [Right Arm] Blood Pressure Mean [Right Arm] Blood Pressure Source [Right Arm] Blood Pressure Position [Right Arm] 02 Sat by Pulse Oximetry 100 100 100 Oxygen Delivery Method 10/05/24 14:00 10/05/24 14:30 10/05/24 14:52 Temperature Temperature Source Pulse Rate 91 H 91 H Pulse Rate [Left Radial] Respiratory Rate 12 11 L 17 Blood Pressure 121/65 128/67 137/68 Blood Pressure [Right Arm] Blood Pressure Mean [Right Arm] Blood Pressure Source [Right Arm] Blood Pressure Position [Right Arm] 02 Sat by Pulse Oximetry 100 100 Oxygen Delivery Method 10/05/24 15:00 10/05/24 15:14 10/05/24 15:30 Temperature Temperature Source Pulse Rate Pulse Rate [Left Radial] Respiratory Rate 12 11 L Blood Pressure 126/65 132/61 Blood Pressure [Right Arm] Blood Pressure Mean [Right Arm] Blood Pressure Source [Right Arm] Blood Pressure Position [Right Arm] 02 Sat by Pulse Oximetry Oxygen Delivery Method Room Air 10/05/24 16:00 10/05/24 16:00 10/05/24 16:15 Temperature 97.9 F 98.0 F Temperature Source Oral Pulse Rate 92 H 92 H Pulse Rate [Left Radial] 92 H Respiratory Rate 12 18 12 Blood Pressure 118/62 118/62 Blood Pressure [Right Arm] 127/56 L Blood Pressure Mean [Right Arm] 79 Blood Pressure Source [Right Arm] Automatic Cuff Blood Pressure Position [Right Arm] Supine 02 Sat by Pulse Oximetry 100 100 Oxygen Delivery Method Room Air Lab Data Lab Results 10/05/24 11:30: WBC 11.7 H, RBC 2.82 L, Hgb 9.9 L, Hct 28.7 L, MCV 101.8 H, MCH 35.1 H, MCHC 34.5, RDW 16.5, Plt Count 64 L, MPV 12.3 H, Neut % (Auto) 74.9, Lymph % (Auto) 10.5, [place] % (Auto) 10.3 H, Eos % (Auto) 2.7, Baso % (Auto) 0.7, Neut # (Auto) 8.7 H, Lymph # (Auto) 1.2, [place] # (Auto) 1.2 H, Eos # (Auto) 0.3, Baso # (Auto) 0.1, PT 16.6 H, INR 1.54 H, APTT 45.4 H, VBG pH 7.27 L, VBG pCO2 38.0, VBG pO2 37.3, VBG HCO3 17.2 L, VBG Total CO2 18.3 L, VBG O2 Saturation 66.3, VBG Base Excess -9.7 L, VBG Lactic Acid 1.6, Sodium 129 L, Potassium 4.2, Chloride 101, Carbon Dioxide 17 L, Anion Gap 15.2 H, BUN 62 H, Creatinine 3.60 H , Estimated Creat Clear 43, Estimated GFR 19 L*, Est GFR ( Amer) 23 L, G lucose 134 H, Calcium 9.1, Total Bilirubin 13.0 H*, AST 78 H, ALT 43, Alkaline Phosphatase 267 H, Ammonia < 9 L, Troponin I 0.04 H, C-Reactive Protein 13.8 H, Total Protein 6.3, Albumin 3.1 L, Globulin 3.2, Albumin/Globulin Ratio 1.0 L, Lipase 97, TSH 1.31, Thyroxine (T4) 3.9 L, HCV Ab INES w/Rflx PCR Qn Negative, HIV Ag/Ab Combo Qual Negative 10/05/24 13:45: Fluid Source Paracentesis fluid, Fluid Volume 21, Fluid Appearance Normal, Fluid RBC (Auto) < 2000, Fld Tot Nucleated Cell 61, Fld Polynuclear WBCs % 10, Fld Mononuclear WBCs % 90 10/05/24 14:30: Sodium 128 L, Potassium 4.8, Chloride 104, Carbon Dioxide 14 L, Anion Gap 14.8, BUN 60 H, Creatinine 3.20 H, Estimated Creat Clear 49, Estimated GFR 22 L, Est GFR ( Amer) 26 L, Glucose 113 H, Calcium 8.5, Troponin I 0.03 10/05/24 14:53: Urine Color Yellow, Urine Appearance Clear, Urine pH 6.0, Ur Specific [place] 1.015, Urine Protein Negative, Urine Glucose (UA) Negative, Urine Ketones Negative, Urine Blood Negative, Urine Nitrate Negative, Urine Bilirubin 2+ A, Urine Urobilinogen 0.2, Ur Leukocyte Esterase Negative, Urine RBC None, Urine WBC Occasional, Ur Squamous Epith Cells Occasional, Urine Bacteria Trace, Urine Opiates Screen Negative, Urine Methadone Screen Negative, Ur Barbituates Screen Negative, Ur Phencyclidine Scrn Negative, Ur Amphetamines Screen Negative, U Benzodiazepines Scrn Negative, Urine Cocaine Screen Negative, U Marijuana (THC) Screen Negative 10/05/24 11:30 10/05/24 14:30 Orders (Tests/Meds): ED MEDICATIONS Discontinued Medications Generic Name Dose Route Start Last Admin Trade Name Freq PRN Reason Stop Dose Admin Acetaminophen 650 mg 10/05/24 14:53 Acetaminophen 325mg Tab PO 11/04/24 14:52 Q4HP PRN Fever or Mild Pain (1-3) Enoxaparin Sodium 40 mg 10/06/24 09:00 Enoxaparin 40mg/0.4ml Syringe SUBCUT 11/05/24 08:59 DAILY PILAR Lactated Ringer's 1,000 mls @ 999 mls/hr 10/05/24 12:51 10/05/24 12:56 Lactated Ringer's 1000 Ml Bag IV 10/05/24 13:51 999 mls/hr .Q1H1M ONE Administration Ceftriaxone Sodium 2 gm/ 100 mls @ 200 mls/hr 10/05/24 14:00 10/05/24 14:40 Sodium Chloride IV 10/05/24 14:29 200 mls/hr ONCE ONE Administration Lactated Ringer's 1,000 mls @ 100 mls/hr 10/05/24 15:00 10/05/24 16:20 Lactated Ringer's 1000 Ml Bag IV 11/04/24 14:59 100 mls/hr .Q10H PILAR Administration Piperacillin Sod/Tazobactam 50 mls @ 100 mls/hr 10/05/24 18:15 10/05/24 18:36 Sod 2.25 gm/ Sodium Chloride IV 10/15/24 18:14 100 mls/hr Q8H PILAR Administration Sodium Chloride 1,000 mls @ 75 mls/hr 10/05/24 18:15 10/05/24 18:31 Sod Chlor 0.9% 1000ml Bag IV 11/04/24 18:14 Not Given .[id number] PILAR Albumin Human 12.5 gm in 50 mls @ 100 mls/hr 10/05/24 21:00 Albumin 25% (12.5gm) Soln 50ml Bag IV 11/04/24 20:59 BID PILAR Octreotide Acetate 200 mcg/ 52 mls @ 104 mls/hr 10/05/24 20:00 10/05/24 19:53 Sodium Chloride IV 11/04/24 19:59 104 mls/hr Q8H PILAR Administration Ondansetron HCl 4 mg 10/05/24 14:53 Ondansetron 4mg/2ml Vial IV 11/04/24 14:52 Q6HP PRN Nausea Oxycodone HCl 5 mg 10/05/24 19:16 10/05/24 19:28 Oxycodone 5mg Immediate Release Tablet PO 11/04/24 19:15 5 mg Q6HP PRN Administration Moderate to Severe Pain (4-10) Sodium Chloride 10 ml 10/05/24 15:00 Sodium Chloride 0.9% 10ml Flush Syringe IV 11/04/24 14:59 NEEDED PRN Maintain IV Site Sodium Chloride 10 ml 10/05/24 18:13 Sodium Chloride 0.9% 10ml Flush Syringe IV 11/04/24 18:12 NEEDED PRN Maintain IV Site ORDERS Category Date Time Status CT abdomen pelvis wo con Stat Cat Scan 10/05/24 11:[address] head/brain wo con Stat Cat Scan 10/05/24 11:39 Completed CXR --portable [XR chest portable] Stat Exams 10/05/24 11:39 Completed POCUS Point of Care (ER Only) Stat Exams 10/05/24 11:38 Taken Ammonia Stat Lab 10/05/24 11:30 Completed BMP [Basic Metabolic Panel] Stat Lab 10/05/24 14:30 Completed CRP [C-Reactive Protein] Stat Lab 10/05/24 11:30 Completed Complete Blood Count Auto Diff Stat Lab 10/05/24 11:30 Completed Comprehensive Metabolic Panel Stat Lab 10/05/24 11:30 Completed HIV Combo Stat Lab 10/05/24 11:30 Completed Hepatitis C Ab Qual. W/ RFX Stat Lab 10/05/24 11:30 Completed Lipase Stat Lab 10/05/24 11:30 Completed PT INR [Prothrombin Time INR] Stat Lab 10/05/24 11:30 Completed PTT [Activated Partial Thrombo Time] Stat Lab 10/05/24 11:30 Completed T4 (Thyroxine) Stat Lab 10/05/24 11:30 Completed TSH [Thyroid Stimulating Hormone] Stat Lab 10/05/24 11:30 Completed Trop I [Troponin I] Stat Lab 10/05/24 11:30 Completed Troponin I Q3H Lab 10/05/24 14:30 Completed UA [Urinalysis and Microscopic] Stat Lab 10/05/24 14:53 Completed UDS [Drug Screen,Urine] Stat Lab 10/05/24 14:53 Completed Blood Culture Stat Micro 10/05/24 12:23 Results VBG [Venous Blood Gas] Stat RT 10/05/24 11:30 Completed ECG Data Tracing #1: I reviewed this ECG and interpreted as documented below: Normal sinus rhythm with a ventricular rate of [address] changes concerning for STEMI. Normal intervals ECG initial impression date: 10/05/24 ECG initial impression time: 11:54 Medical Decision Narrative: In summary, this patient is a 39-year-old male presenting to the Emergency Department for evaluation of altered mental status in the setting of cirrhosis. Differential diagnoses considered include but are not limited to hepatic encephalopathy, sepsis, SBP, intracranial hemorrhage, CVA, hepatorenal syndrome. Ruling out the most morbid conditions drove assessment. It should be noted patient's history includes cirrhosis, hypothyroidism, hypertension, hyperlipidemia which are likely not at goal therapy. This complicates all aspects of care by increasing patient's risk for morbidity. I reviewed patient's past medical records and noted previous evaluations for paracentesis and albumin repletion in the setting of cirrhosis. On exam, the patient is ill-appearing. He is jaundiced.he is alert but pleasantly confused, unable to answer simple questions. He does not have any focal deficits and is moving all 4 extremities equally. Workup included broad lab evaluation to evaluate for infectious, metabolic, cardiac derangements. His also consents for diagnostic paracentesis to rule out SBP. Workup also included CT head without contrast and CT abdomen pelvis without contrast to further assess for cause of altered mental status. I independently interpreted CT scans prior to the radiologist read and noted no intracranial hemorrhage, no obvious intraabdominal stranding though he does have gallstones. Please see their read for final interpretation. Labs were obtained that demonstrated a surprisingly normal ammonia, no significant change in his liver function, but he does have significant worsening in his kidney function with a new elevation in BUN. This could be contributing to clinical picture and I am concerned for hepatorenal syndrome. I performed a paracentesis after informed consent was obtained from the patient and his and drained 3 related fluid off. Fluid culture studies were sent and were pending, but I elected to go ahead and administer Rocephin given his history of SBP in the past. Given that he follows at [facility] and is working on being put on the liver transplant list, I called them and had an interactive discussion with Dr. Velázquez the hospitalist accepted the patient for transfer, however they do not have a bed right now. Given this, I had an interactive discussion with the hospitalist who admitted the patient in stable condition pending transfer to [facility]. Procedures Risk/Benefits of Procedure(s) Were Explained: Yes Paracentesis Time Out Performed: Yes Indication: possible spontaneous bacterial peritonitis Procedure: diagnostic paracentesis Location: RLQ Local Anesthetic: lidocaine 1% Amount of anesthesia used (mL): 7 Bedside Ultrasound Used: yes, Ascites confirmed and location marked Preparation: sterile prep and drape Amount of fluid obtained (mL): 3,000 Fluid: clear Post Procedure Exam: awake, alert, normal BP, normal HR and normal SpO2 Patient Tolerated Procedure: well and no complications Complications: none Additional Comments: safety-centesis kit used, tolerated well without complication Critical Care Critical Care Time Critical Care Time: Yes Attestation: On 10/05/24, the high probability of a clinically significant, sudden or life threatening deterioration of the following system(s) required my full and direct attention, intervention and personal management. The time I documented below is in addition to time spent performing reported procedures but includes the following listed in this critical care notation. Total Time Total Critical Care Time: 35
[2024-10-05 12:56] LABS: HIV Combo NEGATIVE (Negative)
[2024-10-05] MEDS: LACTATED RINGERS 1000ML 1,000 ML 999 ML IV (12:56)
--- NOTE | 2024-10-05 13:34 | PC.NURSE ---
Request for a Power Share to [facility] and a disc.
--- NOTE | 2024-10-05 13:55 | PC.NURSE ---
calling at this time.
--- NOTE | 2024-10-05 13:57 | PC.NURSE ---
1250 l removed, drainage bag hooked to pt to continue to drain abdomen
[2024-10-05 13:59] LABS: Hepatitis C Ab Qual. W/ RFX NEGATIVE (Negative)
[2024-10-05] MEDS: CEFTRIAXONE SODIUM 2 GM in 0.9 % SODIUM CHLORIDE 100 ML IV (14:40)
--- NOTE | 2024-10-05 14:53 | EXP.HP ---
History of Present Illness *Admission Date: 10/05/24 *Reason for visit:: Confusion *History of present illness: Julien Anderson is a 39-year-old male with decompensated cirrhosis and worsening kidney function. He is being seen by [facility] for transplant eval and workup. He presented to the ER due to worsening confusion and weakness. Confusion worse over the past 24 hours per 's report. Was given double his lactulose dose yesterday with multiple bowel movements overnight but worse confusion this morning around 10 AM. On presentation to the ER, found to be hemodynamically stable. Labs obtained showing worsening kidney function with creatinine of 3.6. Denies any recent fever, nausea or vomiting. Has been having some mild abdominal pain and distention. Unable to provide significant history due to his altered mental status/encephalopathy. [facility] was consulted for transfer, as bed was not available at that time, medicine consulted for admission. Patient admitted to medicine for further management. Labs with white count of 11.7, hemoglobin 9.9, platelets 64 sodium 129, BUN 62 with creatinine 3.6. NADIYA on CKD. Suspicious for hepatorenal syndrome. Bilirubin 13, ammonia less than 9 Diagnostic paracentesis performed in the ED with less than 2000 red blood cells. 61 nucleated cells, 10 or polymorphonuclear white blood cells. Not suspicious for SBP at this time. Fluid culture pending [facility] Disclaimer: The information contained in this section may have been updated after the patient was seen, as this information can be updated by other users. Medical History (Updated 10/07/24 @ 00:00 by Amada Mullins) Gastric varices Esophageal varices GERD (gastroesophageal reflux disease) Hypothyroidism Cirrhosis Renal mass Hyperlipemia Hypertension Surgical History H/O endoscopy S/P cervical spinal fusion Family History (Updated 10/05/24 @ 16:35 by Sonya Carbajal RN) Other Cancer Social History (Updated 10/05/24 @ 16:36 by Sonya Carbajal RN) Smoking Status: Former smoker alcohol intake: never substance use type: denies use current occupational status: employed and other Travel in the last 8 weeks?: None household members: significant other housing: house Other Medical History Have you received the Pneumonia Vaccine: No Meds Home Medications and Allergies Home Medications ?Medication ?Instructions ?Recorded ?Confirmed ?Type bempedoic acid 180 mg-ezetimibe 10 1 tab PO DAILY Cholesterol 08/31/22 10/05/24 History mg tablet (Nexlizet) lactulose 10 gram/15 mL oral 15 ml PO DAILY CIRRHOSIS 08/31/22 10/05/24 History solution levothyroxine 75 mcg tablet 75 mcg PO DAILY HYPOTHYROIDISM 08/31/22 10/05/24 History pantoprazole 40 mg tablet,delayed 40 mg PO DAILY GERD 08/31/22 10/05/24 History release rifaximin 550 mg tablet (Xifaxan) 550 mg PO BID CIRRHOSIS 08/31/22 10/05/24 History thiamine HCl (vitamin B1) 100 mg 100 mg PO DAILY Supplement 08/31/22 10/05/24 History tablet diphenhydramine HCl 25 mg capsule 25 mg PO Q6HP PRN Itching #30 caps 01/30/23 10/05/24 Rx triamcinolone acetonide 0.1 % 1 applic topical BID PRN itching 01/30/23 10/05/24 Rx topical cream #30 grams ciprofloxacin HCl 500 mg tablet 500 mg PO DAILY 10/05/24 10/05/24 History (Cipro) potassium chloride 20 mEq 40 meq PO DAILY 10/05/24 10/05/24 History tablet,extended release sodium bicarbonate 650 mg tablet 1,300 mg PO TID 10/05/24 10/05/24 History ursodiol 300 mg capsule 300 mg PO BID 10/05/24 10/05/24 History New Prescriptions to Start Prescriptions: Allergies Allergy/AdvReac Type Severity Reaction Status Date / Time No Known Allergies Allergy Verified 12/01/20 14:48 Exam Data for Last 24 hours Vital signs and Labs for Last 24 Hours: Temp Pulse Resp BP Pulse Ox O2 Del Method 97.8 F 91 H 11 L 128/67 100 Room Air 10/05/24 11:49 10/05/24 14:00 10/05/24 14:30 10/05/24 14:30 10/05/24 14:00 10/05/24 11:49 Laboratory Results - last 24 hr 10/05/24 11:30: WBC 11.7 H, RBC 2.82 L, Hgb 9.9 L, Hct 28.7 L, MCV 101.8 H, MCH 35.1 H, MCHC 34.5, RDW 16.5, Plt Count 64 L, MPV 12.3 H, Neut % (Auto) 74.9, Lymph % (Auto) 10.5, [place] % (Auto) 10.3 H, Eos % (Auto) 2.7, Baso % (Auto) 0.7, Neut # (Auto) 8.7 H, Lymph # (Auto) 1.2, [place] # (Auto) 1.2 H, Eos # (Auto) 0.3, Baso # (Auto) 0.1, PT 16.6 H, INR 1.54 H, APTT 45.4 H, VBG pH 7.27 L, VBG pCO2 38.0, VBG pO2 37.3, VBG HCO3 17.2 L, VBG Total CO2 18.3 L, VBG O2 Saturation 66.3, VBG Base Excess -9.7 L, VBG Lactic Acid 1.6, Sodium 129 L, Potassium 4.2, Chloride 101, Carbon Dioxide 17 L, Anion Gap 15.2 H, BUN 62 H, Creatinine 3.60 H, Estimated Creat Clear 43, Estimated GFR 19 L*, Est GFR ( Amer) 23 L, Glucose 134 H, Calcium 9.1, Total Bilirubin 13.0 H*, AST 78 H, ALT 43, Alkaline Phosphatase 267 H, Ammonia < 9 L, Troponin I 0.04 H, C-Reactive Protein 13.8 H, Total Protein 6.3, Albumin 3.1 L, Globulin 3.2, Albumin/Globulin Ratio 1.0 L, Lipase 97, TSH 1.31, Thyroxine (T4) 3.9 L, HIV Ag/Ab Combo Qual Negative I & O for Last 24 hours: Intake & Output 10/02/24 10/03/24 10/04/24 10/05/24 23:59 23:59 23:59 23:59 Weight 113.398 kg Constitutional Constitutional: no acute distress Comments: Jaundice, confused. *Routine HEENT Exam Head: Present normocephalic Eye: Present EOMI and PERRL ENT: Present mucous membranes moist *Routine Neck Exam Neck: Present supple; Absent lymphadenopathy *Routine Respiratory Exam Respiratory: Present CTA bilaterally *Routine Cardiovascular Exam Cardiovascular: Present RRR *Routine Abdominal Exam Abdominal: Present soft, normoactive bowel sounds and distended; Absent tenderness *Routine Rectal Exam Rectal:: deferred *Routine Genitalia Exam Genitalia:: deferred *Routine Extremities Exam Extremities: Absent cyanosis, clubbing or edema *Routine Skin Exam Skin: Present warm; Absent rash *Routine Neurological Exam Neurological: Present alert Assessment and Plan *Assessment and plan (1) Decompensated cirrhosis: Status: Chronic Category: Medical Code(s): K72.90 - Hepatic failure, unspecified without coma; K74.60 - Unspecified cirrhosis of liver Plan Julien Anderson is a 39-year-old male with end-stage cirrhosis who presented with worsening confusion. Found to have worsening NADIYA and encephalopathy. Medicine consulted for admission and further management after inability to transfer directly from the ER to [facility]. Patient graciously accepted to [facility] for transfer but awaiting bed. Started on octreotide and albumin to treat hepatorenal syndrome. Remained hemodynamically stable. Bed became available, will transfer via private vehicle. Problems addressed as follows: Hepatorenal syndrome NADIYA Decompensated cirrhosis - Administered gentle IV fluids in the ER. After arriving to the floor, was treated with albumin and octreotide for hepatorenal syndrome. Repeat labs obtained showing slight improvement in creatinine from 3.6-3.2. He continues to be confused/altered. Currently pending bed opening at [facility] where patient has already established care with liver transplant team. Cultures were obtained including diagnostic paracentesis and blood cultures. Abdominal fluid not consistent with SBP. Has been on prophylaxis with ciprofloxacin at home. Received single dose of Zosyn in the ED. Did not continue at this time. White count marginal at 11.7, hemoglobin 9.9. Platelets 64. Significant electrolyte disturbances with hyponatremia, likely chronic in the setting of his cirrhosis. Hypothyroid: Continue levothyroxine 75 mcg daily Hepatic encephalopathy: Continue rifaximin 550 mg twice daily; continue lactulose 15 mL daily, uptitrate as needed for goal 2-3 bowel movements a day Continue pantoprazole 40 mg daily for GERD and GI prophylaxis in the setting of varices Metabolic acidosis: Continue sodium bicarbonate 1300 mg 3 times a day Continue ursodiol 300 mg twice daily for gallstones
[2024-10-05 14:57] LABS: Microscopic, Urine URINE MICROSCOPIC (MICROSCOPIC)
--- NOTE | 2024-10-05 14:59 | PC.NURSE ---
3L removed from paracentesis
--- NOTE | 2024-10-05 15:02 | PC.NURSE ---
call made to house carpenter helper for bed assignment
[2024-10-05 15:04] LABS: Chloride 104 mmol/L (98-107)
[2024-10-05 15:05] LABS: Potassium 4.8 mmoL/L (3.5-5.1); Sodium 128 mmol/L (136-145)
[2024-10-05 15:08] LABS: Anion Gap 14.8 mEq/L (5-15); Blood Urea Nitrogen 60 mg/dl (9-20); Calcium 8.5 mg/dl (8.4-10.2); Carbon Dioxide 14 mmol/L (22.0-30.0); Creatinine Clearance Estimated 49 mL/min (50-200); Estimated Glomerular Filt Rate 22 ml/min (>60); GFR (African American) 26 ML/MIN (>60); Glucose 113 mg/dl (74-100)
[2024-10-05 15:12] LABS: Appearance,Urine CLEAR (Clear); Blood, Urine Negative (Negative); Color,Urine YELLOW (Yellow); Glucose,Urine (UA) Negative (Negative); Ketones,Urine Negative (Negative); Leukocyte Esterase,Urine Negative (Negative); Nitrate,Urine Negative (Negative); Protein,Urine Negative (Negative); Specific Gravity, Urine 1.015 (1.005-1.030); Urobilinogen,Urine 0.2 EU/dl (0.2)
[2024-10-05 15:16] LABS: Bilirubin,Urine 2+ (Negative)
[2024-10-05 15:21] LABS: Troponin I 0.03 ng/ml (0.00-0.034)
[2024-10-05 15:28] LABS: Amphetamine/Metha Screen,Urine Negative ng/ml (<1000)
[2024-10-05 15:29] LABS: Barbiturates Screen,Urine Negative ng/ml (<200); Benzodiazepines Screen,Urine Negative ng/ml (<200)
[2024-10-05 15:30] LABS: Cannabinoid Screen,Urine Negative ng/ml (<50)
[2024-10-05 15:31] LABS: Cocaine Screen,Urine Negative ng/ml (<300)
[2024-10-05 15:32] LABS: Opiate Screen,Urine Negative ng/ml (<300); Phencyclidine Screen,Urine Negative ng/ml (<25)
[2024-10-05 15:36] LABS: Methadone Screen,Urine Negative ng/ml (<300)
[2024-10-05 15:40] LABS: Bacteria,Urine Trace /lpf; Squamous Epithelial Cell,Urine Occasional #/hpf (0-5); WBC,Urine Occasional #/hpf (0-3)
[2024-10-05] MEDS: LACTATED RINGERS 1000ML 1,000 ML 100 ML IV (16:20)
[2024-10-05 16:29] LABS: Appearance,Body Fld. Normal; Source, Body Fld. Paracentesis Fluid; Volume,Body Fld. 21 mL
[2024-10-05 16:30] LABS: RBC,Body Fluid < 2000 cells/uL (< 10 X 10^3); TNC,Body Fluid 61 cells/uL (< 1000)
[2024-10-05 17:49] LABS: Polynuclear WBC,Body Fluid 10 %
[2024-10-05 17:50] LABS: Mononuclear WBCs,Body Fluid 90 %
--- NOTE | 2024-10-05 18:21 | PC.NURSE ---
Keyla ABDULLAHI from GI is aware of the GI consult per Anne-Marie ABDULLAHI hospitalist.
[2024-10-05] MEDS: TAZO IV (18:36)
[2024-10-05] MEDS: [UNRECOGNIZED DRUG - OTHER] IV (18:36)
[2024-10-05] MEDS: SODIUM CHLORIDE 0.9% IV ×2 (18:36→19:53)
[2024-10-05] MEDS: OXYCODONE 5MG IMMEDIATE RELEASE TABLET 5 MG PO (19:28)
[2024-10-05] MEDS: OCTREOTIDE ACETATE IV (19:53)
--- NOTE | 2024-10-05 20:25 | P.DS_ITS ---
General Admission date:: 10/05/24 Discharge date: 10/05/24 HPI HPI HPI: 39-year-old male with decompensated cirrhosis and worsening kidney function. He is being seen by [place] for transplant eval and workup. He presented to the ER due to worsening confusion and weakness. Confusion worse over the past 24 hours per 's report. Was given double his lactulose dose yesterday with multiple bowel movements overnight but worse confusion this morning around 10 AM. On presentation to the ER, found to be hemodynamically stable. Labs obtained showing worsening kidney function with creatinine of 3.6. Denies any recent fever, nausea or vomiting. Has been having some mild abdominal pain and distention. Unable to provide significant history due to his altered mental status/encephalopathy. [place] was consulted for transfer, as bed was not available at that time, medicine consulted for admission. Patient admitted to medicine for further management. Labs with white count of 11.7, hemoglobin 9.9, platelets 64 sodium 129, BUN 62 with creatinine 3.6. NADIYA on CKD. Suspicious for hepatorenal syndrome. Bilirubin 13, ammonia less than 9 Diagnostic paracentesis performed in the ED with less than 2000 red blood cells. 61 nucleated cells, 10 or polymorphonuclear white blood cells. Not suspicious for SBP at this time. Fluid culture pending Hospital Course Hospital Course Hospital Course: 39-year-old male with end-stage cirrhosis who presented with worsening confusion. Found to have worsening NADIYA and encephalopathy. Medicine consulted for admission and further management after inability to transfer directly from the ER to [place]. Patient graciously accepted to [place] for transfer but awaiting bed. Started on octreotide and albumin to treat hepatorenal syndrome. Remained hemodynamically stable. Bed became available, will transfer via private vehicle. Problems addressed as follows: Hepatorenal syndrome NADIYA Decompensated cirrhosis -Administered gentle IV fluids in the ER. After arriving to the floor, was treated with albumin and octreotide for hepatorenal syndrome. Repeat labs obtained showing slight improvement in creatinine from 3.6-3.2. He continues to be confused/altered. Bed has become available at [place], agree with transfer and further workup/management at tertiary center. Cultures were obtained including diagnostic paracentesis and blood cultures. Abdominal fluid not consistent with SBP. Has been on prophylaxis with ciprofloxacin at home. Received single dose of Zosyn in the ED. Did not continue at this time. White count marginal at 11.7, hemoglobin 9.9. Platelets 64. Significant electrolyte disturbances with hyponatremia, likely chronic in the setting of his cirrhosis. Hypothyroid: Continue levothyroxine 75 mcg daily Hepatic encephalopathy: Continue rifaximin 550 mg twice daily; continue lactulose 15 mL daily, uptitrate as needed for goal 2-3 bowel movements a day Continue pantoprazole 40 mg daily for GERD and GI prophylaxis in the setting of varices Metabolic acidosis: Continue sodium bicarbonate 1300 mg 3 times a day Continue ursodiol 300 mg twice daily for gallstones Graciously excepted [facility] for further management. Stable at time of discharge. Exam Data for Last 24 hours Vital signs and Labs for Last 24 Hours: Temp Pulse Resp BP Pulse Ox O2 Del Method 98.0 F 92 H 12 118/62 100 Room Air 10/05/24 16:15 10/05/24 16:15 10/05/24 16:15 10/05/24 16:15 10/05/24 16:00 10/05/24 18:42 Laboratory Results - last 24 hr 10/05/24 11:30: WBC 11.7 H, RBC 2.82 L, Hgb 9.9 L, Hct 28.7 L, MCV 101.8 H, MCH 35.1 H, MCHC 34.5, RDW 16.5, Plt Count 64 L, MPV 12.3 H, Neut % (Auto) 74.9, Lymph % (Auto) 10.5, [place] % (Auto) 10.3 H, Eos % (Auto) 2.7, Baso % (Auto) 0.7, Neut # (Auto) 8.7 H, Lymph # (Auto) 1.2, [place] # (Auto) 1.2 H, Eos # (Auto) 0.3, Baso # (Auto) 0.1, PT 16.6 H, INR 1.54 H, APTT 45.4 H, VBG pH 7.27 L, VBG pCO2 38.0, VBG pO2 37.3, VBG HCO3 17.2 L, VBG Total CO2 18.3 L, VBG O2 Saturation 66.3, VBG Base Excess -9.7 L, VBG Lactic Acid 1.6, Sodium 129 L, Potassium 4.2, Chloride 101, Carbon Dioxide 17 L, Anion Gap 15.2 H, BUN 62 H, Creatinine 3.60 H , Estimated Creat Clear 43, Estimated GFR 19 L*, Est GFR ( Amer) 23 L, Glucose 134 H, Calcium 9.1, Total Bilirubin 13.0 H*, AST 78 H, ALT 43, Alkaline Phosphatase 267 H, Ammonia < 9 L, Troponin I 0.04 H, C-Reactive Protein 13.8 H, Total Protein 6.3, Albumin 3.1 L, Globulin 3.2, Albumin/Globulin Ratio 1.0 L, Lipase 97, TSH 1.31, Thyroxine (T4) 3.9 L, HCV Ab INES w/Rflx PCR Qn Negative, HIV Ag/Ab Combo Qual Negative 10/05/24 13:45: Fluid Source Paracentesis fluid, Fluid Volume 21, Fluid Appearance Normal, Fluid RBC (Auto) < 2000, Fld Tot Nucleated Cell 61, Fld Polynuclear WBCs % 10, Fld Mononuclear WBCs % 90 10/05/24 14:30: Sodium 128 L, Potassium 4.8, Chloride 104, Carbon Dioxide 14 L, Anion Gap 14.8, BUN 60 H, Creatinine 3.20 H, Estimated Creat Clear 49, Estimated GFR 22 L, Est GFR ( Amer) 26 L, Glucose 113 H, Calcium 8.5, Troponin I 0.03 10/05/24 14:53: Urine Color Yellow, Urine Appearance Clear, Urine pH 6.0, Ur Specific [place] 1.015, Urine Protein Negative, Urine Glucose (UA) Negative, Urine Ketones Negative, Urine Blood Negative, Urine Nitrate Negative, Urine Bilirubin 2+ A, Urine Urobilinogen 0.2, Ur Leukocyte Esterase Negative, Urine RBC None, Urine WBC Occasional, Ur Squamous Epith Cells Occasional, Urine Bacteria Trace, Urine Opiates Screen Negative, Urine Methadone Screen Negative, Ur Barbituates Screen Negative, Ur Phencyclidine Scrn Negative, Ur Amphetamines Screen Negative, U Benzodiazepines Scrn Negative, Urine Cocaine Screen Negative, U Marijuana (THC) Screen Negative I & O for Last 24 hours: Intake & Output 10/02/24 10/03/24 10/04/24 10/05/24 23:59 23:59 23:59 23:59 Intake Total 120 / 120 Balance 120 / 120 Weight 113.625 kg Microbiology Reports for the Last 24 Hours: Microbiology 10/05/24 13:45 Ascites Fluid Gram Stain - Final Constitutional Constitutional: mild distress, chronically ill appearing and cooperative *Routine HEENT Exam Head: Present normocephalic Eye: Present EOMI and PERRL ENT: Present mucous membranes moist Comments: Scleral icterus *Routine Neck Exam Neck: Present supple; Absent lymphadenopathy *Routine Respiratory Exam Respiratory: Present CTA bilaterally; Absent rhonchi, wheezes or crackles *Routine Cardiovascular Exam Cardiovascular: Present RRR *Routine Abdominal Exam Abdominal: Present soft, normoactive bowel sounds, tenderness and distended; Absent rebound or guarding *Routine Rectal Exam Patient deferred: visual exam *Routine Exam Patient deferred: penile exam *Routine Extremities Exam Extremities: Absent cyanosis, clubbing or edema *Routine Skin Exam Skin: Present intact, warm and jaundice; Absent rash *Routine Neurological Exam Neurological: Present alert, altered mental status and moving all extremities Comments: Oriented to person. Knows he is in the hospital. Slow to respond. Significant delayed response to questions. Results Data Completed and Pending Labs on day of discharge: Labs from last 24 hours 10/05/24 10/05/24 10/05/24 14:53 14:30 13:45 WBC RBC Hgb Hct MCV MCH MCHC RDW Plt Count MPV Neut % (Auto) Lymph % (Auto) [place] % (Auto) Eos % (Auto) Baso % (Auto) Neut # (Auto) Lymph # (Auto) [place] # (Auto) Eos # (Auto) Baso # (Auto) PT INR APTT VBG pH VBG pCO2 VBG pO2 VBG HCO3 VBG Total CO2 VBG O2 Saturation VBG Base Excess VBG Lactic Acid Sodium 128 L Potassium 4.8 Chloride 104 Carbon Dioxide 14 L Anion Gap 14.8 BUN 60 H Creatinine 3.20 H Estimated Creat Clear 49 Estimated GFR 22 L Est GFR ( Amer) 26 L Glucose 113 H Calcium 8.5 Total Bilirubin AST ALT Alkaline Phosphatase Ammonia Troponin I 0.03 C-Reactive Protein Total Protein Albumin Globulin Albumin/Globulin Ratio Lipase TSH Thyroxine (T4) Urine Color Yellow Urine Appearance Clear Urine pH 6.0 Ur Specific [place] 1.015 Urine Protein Negative Urine Glucose (UA) Negative Urine Ketones Negative Urine Blood Negative Urine Nitrate Negative Urine Bilirubin 2+ A Urine Urobilinogen 0.2 Ur Leukocyte Esterase Negative Urine RBC None Urine WBC Occasional Ur Squamous Epith Cells Occasional Urine Bacteria Trace Fluid Source Paracentesis fluid Fluid Volume 21 Fluid Appearance Normal Fluid RBC (Auto) < 2000 Fld Tot Nucleated Cell 61 Fld Polynuclear WBCs % 10 Fld Mononuclear WBCs % 90 Urine Opiates Screen Negative Urine Methadone Screen Negative Ur Barbituates Screen Negative Ur Phencyclidine Scrn Negative Ur Amphetamines Screen Negative U Benzodiazepines Scrn Negative Urine Cocaine Screen Negative U Marijuana (THC) Screen Negative HCV Ab INES w/Rflx PCR Qn HIV Ag/Ab Combo Qual 10/05/24 11:30 WBC 11.7 H RBC 2.82 L Hgb 9.9 L Hct 28.7 L MCV 101.8 H MCH 35.1 H MCHC 34.5 RDW 16.5 Plt Count 64 L MPV 12.3 H Neut % (Auto) 74.9 Lymph % (Auto) 10.5 [place] % (Auto) 10.3 H Eos % (Auto) 2.7 Baso % (Auto) 0.7 Neut # (Auto) 8.7 H Lymph # (Auto) 1.2 [place] # (Auto) 1.2 H Eos # (Auto) 0.3 Baso # (Auto) 0.1 PT 16.6 H INR 1.54 H APTT 45.4 H VBG pH 7.27 L VBG pCO2 38.0 VBG pO2 37.3 VBG HCO3 17.2 L VBG Total CO2 18.3 L VBG O2 Saturation 66.3 VBG Base Excess -9.7 L VBG Lactic Acid 1.6 Sodium 129 L Potassium 4.2 Chloride 101 Carbon Dioxide 17 L Anion Gap 15.2 H BUN 62 H Creatinine 3.60 H Estimated Creat Clear 43 Estimated GFR 19 L* Est GFR ( Amer) 23 L Glucose 134 H Calcium 9.1 Total Bilirubin 13.0 H* AST 78 H ALT 43 Alkaline Phosphatase 267 H Ammonia < 9 L Troponin I 0.04 H C-Reactive Protein 13.8 H Total Protein 6.3 Albumin 3.1 L Globulin 3.2 Albumin/Globulin Ratio 1.0 L Lipase 97 TSH 1.31 Thyroxine (T4) 3.9 L Urine Color Urine Appearance Urine pH Ur Specific [place] Urine Protein Urine Glucose (UA) Urine Ketones Urine Blood Urine Nitrate Urine Bilirubin Urine Urobilinogen Ur Leukocyte Esterase Urine RBC Urine WBC Ur Squamous Epith Cells Urine Bacteria Fluid Source Fluid Volume Fluid Appearance Fluid RBC (Auto) Fld Tot Nucleated Cell Fld Polynuclear WBCs % Fld Mononuclear WBCs % Urine Opiates Screen Urine Methadone Screen Ur Barbituates Screen Ur Phencyclidine Scrn Ur Amphetamines Screen U Benzodiazepines Scrn Urine Cocaine Screen U Marijuana (THC) Screen HCV Ab INES w/Rflx PCR Qn Negative HIV Ag/Ab Combo Qual Negative DS: Diagnosis Discharge Diagnosis (1) Decompensated cirrhosis: Status: Chronic Code(s): K72.90 - Hepatic failure, unspecified without coma; K74.60 - Unspecified cirrhosis of liver (2) Hepatic encephalopathy: Status: Acute Code(s): K76.82 - Hepatic encephalopathy (3) Anemia: Status: Acute Code(s): D64.9 - Anemia, unspecified (4) Liver nodule: Status: Chronic Code(s): K76.89 - Other specified diseases of liver (5) NADIYA (acute kidney injury): Status: Acute Code(s): N17.9 - Acute kidney failure, unspecified (6) Hyponatremia: Status: Acute Code(s): E87.1 - Hypo-osmolality and hyponatremia Meds Home Medications and Allergies Home Medications ?Medication ?Instructions ?Recorded ?Confirmed ?Type bempedoic acid 180 mg-ezetimibe 10 1 tab PO DAILY Cholesterol 08/31/22 10/05/24 History mg tablet (Nexlizet) lactulose 10 gram/15 mL oral 15 ml PO DAILY CIRRHOSIS 08/31/22 10/05/24 History solution levothyroxine 75 mcg tablet 75 mcg PO DAILY HYPOTHYROIDISM 08/31/22 10/05/24 History pantoprazole 40 mg tablet,delayed 40 mg PO DAILY GERD 08/31/22 10/05/24 History release rifaximin 550 mg tablet (Xifaxan) 550 mg PO BID CIRRHOSIS 08/31/22 10/05/24 History thiamine HCl (vitamin B1) 100 mg 100 mg PO DAILY Supplement 08/31/22 10/05/24 History tablet diphenhydramine HCl 25 mg capsule 25 mg PO Q6HP PRN Itching #30 caps 01/30/23 10/05/24 Rx triamcinolone acetonide 0.1 % 1 applic topical BID PRN itching 01/30/23 10/05/24 Rx topical cream #30 grams ciprofloxacin HCl 500 mg tablet 500 mg PO DAILY 10/05/24 10/05/24 History (Cipro) potassium chloride 20 mEq 40 meq PO DAILY 10/05/24 10/05/24 History tablet,extended release sodium bicarbonate 650 mg tablet 1,300 mg PO TID 10/05/24 10/05/24 History ursodiol 300 mg capsule 300 mg PO BID 10/05/24 10/05/24 History New Prescriptions to Start Prescriptions: Allergies Allergy/AdvReac Type Severity Reaction Status Date / Time No Known Allergies Allergy Verified 12/01/20 14:48 Discharge Plan Disposition Patient Disposition: Xfer Short-Term Hosp Condition: Fair Discharge Order Discharge Orders: Discharge Order (Routine); Ordered 10/05/24 Ordered By: Andrew Rodríguez Follow up Plan Prescriptions/Medication Reconciliation: Continued Nexlizet 180-10 mg Tablet 1 tab PO DAILY thiamine HCl (vitamin B1) 100 mg Tablet 100 mg PO DAILY levothyroxine 75 mcg Tablet 75 mcg PO DAILY pantoprazole 40 mg Tablet,Delayed Release (Dr/Ec) 40 mg PO DAILY lactulose 10 gram/15 mL Solution 15 ml PO DAILY Xifaxan 550 mg Tablet 550 mg PO BID triamcinolone acetonide 0.1 % cream 1 applic topical BID PRN (Reason: itching) Qty: 30 0RF diphenhydramine HCl 25 mg capsule 25 mg PO Q6HP PRN (Reason: Itching) Qty: 30 0RF ciprofloxacin HCl [Cipro] 500 mg Tablet 500 mg PO DAILY sodium bicarbonate 650 mg Tablet 1,300 mg PO TID ursodiol 300 mg Capsule 300 mg PO BID potassium chloride 20 mEq Tablet Extended Release 40 meq PO DAILY Problem Reconciliation Problems Reviewed?: Yes Patient Discharge Instructions ACTIVITY: Continue current activity and Limited activity DIET: continue same diet Print Language: Guyanese Providers Primary Care Provider: Enedina Mcguire Admit Provider: Jony Xie Attending Provider: Jony Xie
[2024-10-07 13:10] LABS: AFP, Tumor Marker 2.8 ng/mL (0.0-6.9)
--- NOTE | 2024-10-12 08:53 | PC.NURSE ---
BFC resulted and no growth. Pt was sent to - these results were sent. ntd
== END 2024-10-05 21:20 | disposition short-term general hospital (02) | DRG 432 ==
LOC: ER 14:12 → 2ND 15:56
PROVIDERS: Internal Medicine Gastroenterology; Admitting Provider Student in an Organized Health Care Education/Training Program; Emergency Provider Emergency Medicine; PCP Nurse Practitioner Family; Visit Provider Student in an Organized Health Care Education/Training Program
DX: K74.60 Unspecified cirrhosis of liver (principal); K76.7 Hepatorenal syndrome; E87.1 Hypo-osmolality and hyponatremia; N17.9 Acute kidney failure, unspecified; E87.20 Acidosis, unspecified; R18.8 Other ascites; N18.9 Chronic kidney disease, unspecified; E03.9 Hypothyroidism, unspecified; K76.82 Hepatic encephalopathy; K21.9 Gastro-esophageal reflux disease without esophagitis; K80.20 Calculus of gallbladder without cholecystitis without obstruction; I12.9 Hypertensive chronic kidney disease with stage 1 through stage 4 chronic kidney disease, or unspecified chronic kidney disease; K72.10 Chronic hepatic failure without coma; D63.1 Anemia in chronic kidney disease; E78.5 Hyperlipidemia, unspecified; Z87.891 Personal history of nicotine dependence; Z79.890 Hormone replacement therapy; Z79.899 Other long term (current) drug therapy
CPT/HCPCS: 49083; 70450; 71045; 74176; 80048; 80053; 80307; 81001; 82105; 82140; 82803; 83690; 84436; 84443; 84484; 85025; 85610; 85730; 86140; 86803; 87040; 87070; 87205; 87389; 89051; 93005; 99291; G0378; J0696; J2354; J2543; J7120

== ENCOUNTER 2024-10-17 11:47 | Outpatient (CLI) | payer OTHER, SELFPAY ==
--- OUTSIDE RECORDS SUMMARY | 2024-08-12 18:12 | XMS_ITS | Encounter Summary ---
Author Organization [facility] Address [address] [place] [id number] Care Team Providers Care Compliance Director Name Role Phone Pcp, No Primary Care Provider [phone] Source Comments This information has been disclosed to you from confidential records protectfrom disclosure by state law. You shall make no further disclosure of thisinformation without the specific, written, and informed release of theindividual to whom it pertains, or as otherwise permitted by law. A generalauthorization for the release of medical or other information is not sufficientfor the purposes of the release of HIV test results or diagnoses. [id number] Reason for Visit * Reason Comments Hypotension * Auth/Cert (Routine) Specialty Diagnoses / Procedures Referred By Contelaina t Referred To Contact Intensive Care Diagnoses Chronic liver failure without hepatic coma (CMS-HCC) Cirrhosis (CMS-HCC) [facility] [address] [place] [address] Phone: tel: Referral ID Status Reason Start Date Expiration Date Visits Re quested Visits Authorized [id number] 1 1 Encounter Details Date Type Department Care Team (Late st Contact Info) Description 08/12/2024 6:12 PM EDT - 08/19/2024 12:56 PM EDT Hospital Encounter [address] [place] [address] Eleazar Pitt MD [address] [place] [address] Marty Guidry MD [address] [place], [place] [phone] Raza Rhoades MD [address] [facility], [address] [place] [phone] Mathieu Becker MD [address] [facility] [address] [place] [phone] Zeina Francois MD [address] [place] [phone] Leeanna Hahn MD [address] [place] [address] Chronic liver failure without hepatic coma (CMS-HCC) (Primary Dx); Decompensated cirrhosis (CMS-HCC); NADIYA (acute kidney injury) (CMS-HCC); Hypotension, unspecified hypotension type; Hepatorenal syndrome (CMS-HCC); Shock ([facility]-HCC); Acute metabolic encephalopathy Discharge Disposition: Home WITH Home Health Care Services Social History Tobacco Use Types Packs/Day Years Used Date Smoking Tobacco: Former Cigarettes Smokeless Tobacco: Current Alcohol Use Standard Drinks/Week Comments Yes 0 (1 standard drink = 0.6 oz pure alcohol) History of alcohol abuse, reports no use in 3 week- typically endorses use as 4 glasses of wine a days Utilities Answer Date Recorded In the past 12 months has [employer], or water [employer] threatened to shut off services in your home? No 08/12/2024 AUDIT-C Answer Date Recorded Q1: How often do you have a drink containing alcohol? Never 08/13/2024 Q2: How many drinks containi ng alcohol do you have on a typical day when you are drinking? Patient does not drink Q3: How often do you have si x or more drinks on one occasion? Never 08/13/2024 Hunger Vital Sign Answer Date Recorded Within the past 12 months, y ou worried that your food would run out before you got the money to buy more. Never true 08/13/19 25 Within the past 12 months, t he food you bought just didn't last and you didn't have money to get more. Never true 08/12/2024 PRAPARE - Transportation Answer Date Re corded In the past 12 months, has l ack of transportation kept you from medical appointments or from getting medications? No 05/2024 In the past 12 months, has l ack of transportation kept you from meetings, work, or from getting things needed for daily living? No 08/12/2024 Housing Stability Vital Sign Answer Bob e Recorded In the last 12 months, was t here a time when you were not able to pay the mortgage or rent on time? No 08/12/2024 In the past 12 months, how m any times have you moved where you were living? 0 08/12/2024 At any time in the past 12 m [facility], were you homeless or living in a fdc (including now)? No 08/12/2024 Sex and Gender Information Value Date Recorded Sex Assigned at Not on file Legal Sex Male 11:16 AM EDT Gender Identity Not on file Sexual Orientation Not on file documented as of this encounter Last Filed Vital Signs Vital Sign Reading Time Taken Comments Blood Pressure 117/66 08/19/2024 11:50 AM EDT Pulse 70 08/19/2024 11:50 AM EDT Temperature 36.3 C (97.4 F) 08/19/2024 11:50 AM EDT Respiratory Rate 15 08/19/2024 11:5 0 AM EDT Oxygen Saturation 100% 08/19/2024 11: 50 AM EDT Inhaled Oxygen Concentration 100% 12/2024 11:50 AM EDT Weight 110.1 kg (242 lb 11.2 oz) 08/17/2024 6:42 AM EDT Height 193 cm (6' 4 ) 08/13/2024 12:01 AM EDT Body Mass Index 29.54 08/13/2024 12:01 AM EDT documented in this encounter Functional Status * Audit-C Score Answer Date of Assessment Author 0 08/13/2024 12:03 AM EDT Sondra Patten RN * Question Answer Date of Assessment Author Q1: How often do you have a drink containing alcohol? Never 08/13/2024 12:03 AM EDT Sondra Patten RN Q2: How many drinks containing alcohol do you have on a typical day when you are drinking? Patient does not drink 08/13/2024 12:03 AM EDT Sondra Patten RN Q3: How often do you have six or more drinks on one occasion? Never 08/13/2024 12:03 AM EDT Sondra Patten RN documented as of this encounter Discharge Summaries * Citlaly Padilla, - 08/19/2024 3:20 PM EDT [facility] Inpatient Discharge Summary Patient: Blair Gilbert Age: 39 y.o. CSN: [id number] Date of Admission: 08/12/2024 Date of Discharge: 08/19/2024 Attending Physician: No att. providers found Primary Care Physician: Enedina Mcguire NP Diagnoses Present on Admission Past Medical History: Diagnosis Date Alcoholic cirrhosis of liver (CMS-HCC) Alcoholic hepatitis Esophageal varices (CMS-HCC) Hepatorenal syndrome (CMS-HCC) Hypertension Other hyperlipidemia 07/26/2024 Renal cell carcinoma (CMS-HCC) Thrombocytopenia (CMS-HCC) Thyroid disease Discharge Diagnoses Active Hospital Problems Diagnosis Date Noted Renal mass, left [N28.89] 08/18/2024 Alcohol use disorder [F10.90] 07/26/2024 Metabolic encephalopathy [G93.41] 07/26/2024 Alcoholic cirrhosis of liver without ascites (CMS-HCC) [K70.30] 07/25/2024 Resolved Hospital Problems Diagnosis Date Noted Date Resolved Hepatorenal syndrome (CMS-HCC) [K76.7] 07/25/2024 08/19/2024 NADIYA (acute kidney injury) (CMS-HCC) [N17.9] 07/25/2024 08/19/2024 Operations/Procedures Performed (include dates) Surgeries: n/a Lines and tubes: Patient Lines/Drains/Airways Status Active Line / PIV Line None Other Procedures / Pertinent Imaging: Results for orders placed during the hospital encounter of 08/12/24 US Abdomen Complete Narrative EXAM: US ABDOMEN COMPLETE EXAM: US DUPLEX [id number] COMPLETE INDICATION: Ascites; eval acsites, PVT COMPARISON: 07/29/2024 TECHNIQUE: Grayscale imaging was performed for evaluation of the liver, gallbladder, common bile duct, pancreas, spleen, and kidneys; color and spectral (duplex) Doppler analysis of the hepatic vasculature was also performed. FINDINGS: Liver: Nodular liver contour with increased echogenicity and coarse echotexture. No focal lesion. Biliary/CBD: 6.8 mm. No intra or extrahepatic ductal dilatation. Gallbladder: Fluid distended. Layering tiny calculi/sludge noted. Negative sonographic Mehta's sign. Pancreas: Obscured by overlying bowel gas. Right kidney: 11.7 cm in length. Increased parenchymal echogenicity. No hydronephrosis. Left kidney: 12.2 cm in length. Increased parenchymal echogenicity. No hydronephrosis. Spleen: 20.5 cm. Other: Moderate volume ascites. DOPPLER: Hepatic Veins: Duplex evaluation of the hepatic vasculature demonstrates normal flow in the right, middle and left hepatic veins. Portal Veins: The right, left and main portal vein demonstrate hepatopetal flow. Hepatic Arteries: Right, main and left hepatic arteries demonstrate normal waveforms. Resistive Indices Main hepatic artery: 0.74 Right hepatic artery: 0.78 Left hepatic artery: 0.6- 0.8 [employer]ing [employer] (include reason) Liver for cirrhosis Renal for NADIYA Allergies Allergies[1] Discharge Medications Medication List TAKE these medications, which are NEW Quantity/Refills Cholestyramine Light 4 gram Powd bulk Generic drug: cholestyramine-aspartame Mix one scoop with 4-6 ounces of water and drink by mouth daily. Quantity: 231 g Refills: 0 folic acid 1 MG tablet Commonly known as: FOLVITE Take 1 tablet (1 mg total) by mouth daily. Refills: 0 potassium chloride 20 MEQ tablet Commonly known as: KLOR-CON M20 Take 1 tablet (20 mEq total) by mouth daily. Quantity: 4 tablet Refills: 0 sodium bicarbonate 650 MG tablet Take 2 tablets (1,300 mg total) by mouth 3 times a day. Quantity: 90 tablet Refills: 0 zinc sulfate 50 mg zinc (220 mg) capsule Commonly known as: ZINCATE Take 1 capsule (220 mg total) by mouth daily. Start taking on: August 20, 2024 Quantity: 60 capsule Refills: 0 TAKE these medication, which have CHANGED Quantity/Refills Constulose 10 gram/15 mL solution Generic drug: lactulose Take 30 mLs (20 g total) by mouth 3 times a day as needed (goal 2-3 bowel movements a day). What changed: when to take this reasons to take this Quantity: 2838 mL Refills: 0 TAKE these medications, which you were ALREADY TAKING Quantity/Refills levothyroxine 75 MCG tablet Commonly known as: SYNTHROID Take 1 tablet (75 mcg total) by mouth every morning before breakfast. Refills: 0 pantoprazole 40 MG tablet Commonly known as: PROTONIX Take 1 tablet (40 mg total) by mouth every morning before breakfast. Refills: 0 thiamine HCl 100 MG tablet Commonly known as: VITAMIN B-1 Take 1 tablet (100 mg total) by mouth daily. Quantity: 30 tablet Refills: 0 traMADoL 50 mg tablet Commonly known as: ULTRAM Take 1 tablet (50 mg total) by mouth every 12 hours as needed for Pain (Pain). Refills: 0 Xifaxan 550 mg Tab tablet Generic drug: rifAXIMin Take 1 tablet (550 mg total) by mouth 2 times a day. Quantity: 60 tablet Refills: 0 STOP taking these medications carvediloL 12.5 MG tablet Commonly known as: COREG Nexlizet 180-10 mg Tab Generic drug: bempedoic acid-ezetimibe tadalafiL 10 MG tablet Commonly known as: CIALIS topiramate 25 MG tablet Commonly known as: TOPAMAX Where to Get Your Medications These medications were sent to [facility] [address] [place] [id number] Hours: Sunday - Sunday: 8:00AM - 6:00PM Cholestyramine Light 4 gram Powd bulk Constulose 10 gram/15 mL solution potassium chloride 20 MEQ tablet sodium bicarbonate 650 MG tablet thiamine HCl 100 MG tablet Xifaxan 550 mg Tab tablet zinc sulfate 50 mg zinc (220 mg) capsule Discharge Exam Physical Exam Constitutional: General: He is not in acute distress. Appearance: Normal appearance. He is normal weight. He is not diaphoretic. HENT: Head: Normocephalic and atraumatic. Mouth/Throat: Mouth: Mucous membranes are moist. Pharynx: Oropharynx is clear. Eyes: General: Scleral icterus present. Cardiovascular: Rate and Rhythm: Normal rate and regular rhythm. Pulses: Normal pulses. Heart sounds: Normal heart sounds. Pulmonary: Effort: Pulmonary effort is normal. No respiratory distress. Breath sounds: Normal breath sounds. Abdominal: General: Bowel sounds are normal. Palpations: Abdomen is soft. Tenderness: There is no abdominal tenderness. There is no guarding. Musculoskeletal: Cervical back: Neck supple. Right lower leg: No edema. Left lower leg: No edema. Skin: General: Skin is warm and dry. Coloration: Skin is jaundiced. Comments: Spider angiomatosis Neurological: General: No focal deficit present. Mental Status: He is alert and oriented to person, place, and time. Mental status is at baseline. Psychiatric: Mood and Affect: Mood normal. Behavior: Behavior normal. Thought Content: Thought content normal. Reason for Admission Blair Gilbert is a 39 y.o. male with PMH of EtOH cirrhosis, CKD3, HTN, HLD who was admitted for generalized weakness and worsening abdominal swelling. Also found to be hypotensive with acute kidney injury so admitted to MICU initially for vasopressor requirement and was then stable for transfer to floor after that with eventual discharge 08/19. Hospital Course Active Hospital Problems Diagnosis Date Noted Renal mass, left [N28.89] 08/18/2024 Alcohol use disorder [F10.90] 07/26/2024 Metabolic encephalopathy [G93.41] 07/26/2024 Alcoholic cirrhosis of liver without ascites (CMS-HCC) [K70.30] 07/25/2024 Resolved Hospital Problems Diagnosis Date Noted Date Resolved Hepatorenal syndrome (CMS-HCC) [K76.7] 07/25/2024 08/19/2024 NADIYA (acute kidney injury) (CMS-HCC) [N17.9] 07/25/2024 08/19/2024 #Decompensated EtOH cirrhosis Liver consulted this admission. Para performed for ascites which was negative for SBP. HE resolved with lactulose and LFTs near baseline on discharge. - STOPPED BB because of hypotension - Continue lactulose for goal 2-3 BM daily, rifaximin 550 BID. - Added Zinc 220mg BID this stay for HE - Added cholestyramine daily for itching - EGD needed in outpatient setting per GI - Repeat LFTs, BMP, INR, CBC in ~1 week per GI. They are fine with PCP following up #NADIYA on CKD3 P/w NADIYA (Cr peak 4.84. Initially c/f HRS, but urine studies and improvement with albumin suggestiveof more pre-renal etiology. Improved to 2.69 on discharge but did require Bicarb tablets this stay (in setting of stool output from lactulose and prior Topamax usage) and periodic potassium supplementation despite NADIYA - Needs repeat renal panel in ~1 week of discharge for PCP to ensure relative stability - Has renal follow up outpatient 08/25 to discuss further - Started bicarb 1300 TID for metabolic acidosis. Sending 15 days and will defer the rest to nephrology in outpatient setting - 4 days of PO Kcl 20 meq, defer rest of management to [facility]. - STOP Topamax given RTA this admission #Left renal mass 4 cm Bosniak 4 comlex and solid cystic renal mass in left kidney. Had cryoablation w/ IR 10/2022. Pathology performed suggestive of possibly clear cell RCC vs atypical renal cyst - Has outpatient follow up arranged with nephrology already for NADIYA and can discuss this further with them. #AUD States he hasn't drank since late June. Had to stop Topamax this stay given RTA and offered pt to see addiction medicine for further options and he declined, stating he was motivated to stay sober and do counseling in outpatient setting Condition on Discharge 1. Functional Status: moderately impaired Describe limitations, if any: weakness 2/2 deconditioning in setting of cirrhosis 2. Mental Status: Alert/Oriented Describe limitations, if any: n/a 3. Dietary Restrictions / Tube Feeding / TPN Diet/Nutrition Orders Diet Regular(7) Frequency: Effective Now Number of Occurrences: Until Specified Order Questions: Suicide/Behavior Risk Modification? No Dietary nutrition supplements Frequency: BID Number of Occurrences: Until Specified Order Questions: Select Supplement: Boost-1 kcal/ml supplement ([facility] only) As listed above 4. Discharge specific orders: None required 5. Core measures followed: (if this is a core measure patient) Discharge Weight: (!) 242 lb 11.2 oz (110.1 kg) Disposition Home with Home Health - PT/OT Follow-Up Appointments Future Appointments Date Time Provider Department Center 09/02/2024 2:40 PM Gerri Peterson MD [facility] No follow-up provider specified. Signed: CITLALY PADILLA DO 08/19/2024, 3:20 PM [1] Allergies Allergen Reactions Adhesive Itching and Rash Tegaderm adhesive on Ivs, pt states its tolerable Duloxetine Other (See Comments) Became Manic Cosigned by Leeanna Hahn MD at 08/19/2024 3:41 PM EDT Associated attestation - Leeanna Hahn MD - 08/19/2024 3:41 PM EDT I interviewed and examined patient, discussed problems and plans with resident, agree with notes asdetailed below. Medical Decision Making: Discharge >30 minutes, [id number]: Total time personally spent today, including [id number] with patient and/or caregiver(s), as well as wqi-[id number]-face time spent in care coordination, consultation,reviewing records, and documentation was 35 minutes. 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 Gender: male Patient emergency contact: Extended Emergency Contact Information Primary Emergency Contact: Abdiaziz Gilbert (next of kin) Mobile Relation: Spouse Secondary Emergency Contact: brown gilbert Mobile Relation: Brother Attending provider: No att. providers found Primary care physician: Enedina Mcguire NP The MD has indicated that the patient is ready for discharge. Transfer Mode/Level of Care: Family The plan has been reviewed: Patient/Family Informed of Discharge Plan: Yes Plan Reviewed With Patient, Family, or Significant Other: Yes Patient and or family are aware and in agreement with the discharge plan: Yes Plan reviewed with MD and other members of the health care team: Yes Care Plan Completed: Yes SW spoke with patient's spouse via phone this afternoon to inform they were still working on getting the C arranged for patient before discharge, and would keep her updated. Patient discharged before the HHC was arranged. MANNY Gagnon continuing to see if a C agency is able to accept No further CM/SW needs. This plan has been reviewed with the multi-disciplinary team. Treatment Preferences Treatment Preferences: Other (provide comment) (N/A) Post-Discharge Goals Patient's Post-Discharge goals: Discharge home safely Post Acute Care Provider Information: Community Services at Discharge Community Services at Home post discharge: Not Applicable Lorrie GOMEZ [phone] documented in this encounter Discharge Instructions * Discharge Instructions* Citlaly Padilla, DO - 08/19/2024 10:36 AM EDT Blair Gilbert, Here are your hospital discharge instructions: --> You were hospitalized for your cirrhosis causing weakness and kidney problems. We treated you for your kidney problems and they improved, but you need to see a kidney doctor outpatient to check your numbers. You have an appointment already scheduled for 08/25 with the kidney doctor and they will tell you the next steps at that time. You also need to get repeat labs checked in ~ 1 week to monitor your kidney function. Your PCP can order these and follow them up to tell you the next step. - We STOPPED your topiramate because it can cause kidney problems - We STARTED 20meQ of potassium for you to take for 4 days and then stop - We also STARTED Bicarb tablets for you to take. Please continue to take all of these medications on discharge until you follow up with your PCP or kidney doctor and they tell you what to do. For your cirrhosis, we strongly recommend you abstain from alcohol. - You wanted to stop the Topamax and do counseling and outpatient services rather than trying another medication for cravings, but if you change your mind please let your PCP know and they can send areferral to addiction services in the outpatient setting. - You have follow up scheduled with GI on 09/02. Please attend this appointment. You need a repeat EGD outpatient but they will call you to schedule this. - We STOPPED your carvedilol because your blood pressures were too low on this medication. - We STARTED cholestyramine to help with your itching and zinc to help with your ammonia build up too. - Please make sure you take the lactulose 3x daily as needed for a goal of 2-3 bowel movements daily. This will help prevent ammonia from building up due to your liver problems which can make you confused. If you have more than 3 bowel movements, you can hold your lactulose for one day and re-assess. Thank you, [facility] Internal Medicine Team Future Appointments Date Time Provider Department Center 09/02/2024 2:40 PM Gerri Peterson MD [facility] * Attachments The following attachments cannot be sent through Care Everywhere. * Alcoholic Liver Disease ([place]az[place]) documented in this encounter Medications at Time of Discharge levothyroxine (SYNTHROID) 75 MCG tablet Take 1 tablet (75 mcg total) by mouth every morning before breakfast. pantoprazole (PROTONIX) 40 MG tablet Take 1 tablet (40 mg total) by mouth every morning before breakfast. rifAXIMin (XIFAXAN) 550 mg Tab tablet Take 1 tablet (550 mg total) by mouth 2 times a day. 60 tablet 08/19/2024 1:23 PM EDT 08/19/2024 sodium bicarbonate 650 MG tablet Take 2 tablets (1,300 mg total) by mouth 3 times a day. 90 tablet 08/19/2024 1:23 PM EDT 08/19/2024 zinc sulfate (ZINCATE) 50 mg zinc (220 mg) capsule Take 1 capsule (220 mg total) by mouth daily. 60 capsule 08/19/2024 1:23 PM EDT 08/20/2024 folic acid (FOLVITE) 1 MG tablet Take 1 tablet (1 mg total) by mouth daily. cholestyramine-as partame (PREVALITE) 4 gram Powd bulk Mix one scoop with 4-6 ounces of water and drink by mouth daily. 231 g 08/19/2024 1:23 PM EDT 08/19/2024 lactulose (CHRONULAC) 10 gram/15 mL solution Take 30 mLs (20 g total) by mouth 3 times a day as needed (goal 2-3 bowel movements a day). 2838 mL 08/19/2024 1:23 PM EDT 08/19/2024 5 thiamine HCl (VITAMIN B-1) 100 MG tablet Take 1 tablet (100 mg total) by mouth daily. 30 tablet 08/19/2024 1:23 PM EDT 08/19/2024 5 traMADoL (ULTRAM) 50 mg tablet Take 1 tablet (50 mg total) by mouth every 12 hours as needed for Pain (Pain). 5 potassium chloride (KLOR-CON M20) 20 MEQ tablet Take 1 tablet (20 mEq total) by mouth daily. 4 tablet 08/19/2024 1:23 PM EDT 08/19/2024 5 documented as of this encounter Progress Notes * Nat Leone - 08/19/2024 9:58 AM EDT 08/19/24 0900 24 HR Nutrition Analysis Totals 24 HR Total Calories (kcals) 0 kcals 24 Hr Total Protein (g) 0 g Estimated Nutrition Needs: Needs based on: 109 kg CBW Kcals/day:5408-5276 (20-22 kcals/kg) Protein g/day: 130 (1.2g/kg) Carbohydrate g/day: not applicable Fluid ml/day: per No meal tickets saved and no PO intake recorded for 08/18/24 calorie count. 2 meals ordered from [employer]. Nat Leone NDTR Nutrition and [employer] Contact via [employer] * Ignacio Queen MD - 08/18/2024 5:42 PM EDT Images from the original note were not included. Department of Internal Medicine Nephrology & Hypertension Consult Progress Note Patient: Blair Gilbert Date of Admit: 08/12/2024 Referring physician: Zeina Francois MD Assessment Renal Function: Recent Labs 08/18/24 1517 08/18/24 0457 08/17/24 2353 BUN 40* 37* 38* CREATININE 2.71* 2.67* 2.83* # NADIYA on CKD stage II, improving Continues to have good UO of 2.8L. NADIYA appears to be prerenal rather than HRS based on improvement from albumin. Poor po intake with 240 mL documented yesterday. # Uremia, improving Mentation improved today. Ammonia decreased 248 -> 168. Lactulose increased on 08/14 to q4h, had 2.8L of stool output yesterday. # hx left renal mass 4 cm Bosniak 4 complex and solid cystic renal mass in the left kidney, s/p cryoablation with IR 10/2022. Documentation of concern for congenital renal disorder throughout chart but not mentioned in outpatient Nephrology note. Pathology with scant atypical cells with clear cytoplasm, differential includes clear cell RCC, unable to exclude atypical renal cyst and clear cell papillary renal cell tumor due to small sample. # mild R hydronephrosis, resolved Identified on ELAINE on 07/26/24. Possibly 2/2 nephrolithiasis. Not present on repeat ELAINE on 08/13/24. Electrolytes: Na: 135 K: 3.4 Cl: 110 Alb: 3.2 Ma.7 Ca: 9.0 Phos: 2.7 # hypokalemia Possibly 2/2 lactulose, reports 3-4 BM daily at home but had 7 BM yesterday with increase in lactulose. Acid Base Status: Anion Gap: 9 Bicarb: 16 # Acidosis, improving Mild HAGMA resolved. NAGMA could be from stool output 2/2 lactulose as well as from home topiramatefor AUD inhibiting bicarb resorption. Bicarb improving with isotonic bicarb gtt. Hypertension/CVS: BP: 115/54 Off Levo since 08/14 at 1200. PLAN - Patient was hypovolemic, not HRS, improved with albumin, good urine output Renal function stable Thank you for allowing us to participate in this patient's care. Discussed with Consult Staff. Ignacio Queen MD Renal Fellow Pager # [phone] Chief Complaint Chief Complaint Patient presents with Hypotension Reason for Consult C/f HRS History of Present Illness Blair Gilbert is a 39 y.o. y/o male with PMHx of alcohol-related cirrhosis d/b ascites, HE, and esophageal and gastric varices, recent admission to [facility] for prerenal NADIYA (07/25-07/29), acute pancreatitis 2/2 ERCP, hypothyroidism, hyperlipidemia, anxiety, CKD, and hx left RCC presenting with increased a bdominal distention, generalized weakness, and worsening Cr on recent blood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 Treatment/Interventions: LE strengthening/ROM, Therapeutic Activity, Therapeutic Exercise, Endurance training, Patient/family training, Equipment eval/education, Gait training, Neuromuscular Reeducation, Stair Training PT Frequency: minimum 3x/week The plan of care and recommendations assesses the patient's and/or caregiver's readiness, willingness, and ability to provide or support functional mobility and ADL tasks as needed upon discharge. Time Start Time: 1122 Stop Time: 1200 Time Calculation (min): 38 min Charges $Gait/Mobility: 8-22 mins $Therapeutic Activity: 2 units Problem List Problem List[1] Past Medical History Past Medical History: Diagnosis Date Alcoholic cirrhosis of liver (CMS-HCC) Alcoholic hepatitis Esophageal varices (CMS-HCC) Hepatorenal syndrome (CMS-HCC) Hypertension Other hyperlipidemia 07/26/2024 Renal cell carcinoma (CMS-HCC) Thrombocytopenia (CMS-HCC) Thyroid disease Past Surgical History History reviewed. No pertinent surgical history. [1] Patient Active Problem List Diagnosis Alcoholic cirrhosis of liver without ascites (CMS-HCC) Hepatorenal syndrome (CMS-HCC) NADIYA (acute kidney injury) (CMS-HCC) Alcohol use disorder Metabolic encephalopathy Hypertension Other hyperlipidemia Thrombocytopenia (CMS-HCC) * Anshul Delcid - 08/15/2024 11:25 AM EDT My initial visit with this patient and family. Patient awake and can respond. His and father were at bedside. Family from [place], [place] except dad who is from [place]. Families concerned about heavy rain in [place] over the weekend. Patient to go to a floor room soon. Provided pastoral presence, emotional and spiritual support, and prayer. Please page our service at [phone] as needs arise for patient and/or family. Change Management ConsultantDwaine Winters. * Mathieu Becker MD - 08/15/2024 10:36 AM EDT MICU ATTENDING DAILY PROGRESS NOTE I independently saw and examined this patient on 08/15/2024. The x-rays and labs were reviewed. The case was discussed in detail during multidisciplinary rounds, the events of the past 24 hours reviewed, and a plan for medical care arranged. Labs, Xrays and pertinent studies were reviewed HPI Blair Gilbert is a 39 y.o. male with a PMH significant for cirrhosis 2/2 EtOH use d/b ascites, recent EtOH hepatitis, CKD, RCC, HTN, HLD who presented to the hospital on 08/12/2024 for worsening generalized weakness and abdominal distention, worsening renal function. Patient was recently discharged from 07/29/2024 for HRS that improved with albumin and prior to that 07/08 for EtOH hepatitis at . Reportedly has a high PETH at and was denied OLT but has since entered a treatment program Interval History Renal function improving. Good UOP. More awake today BP 122/71 Pulse 69 Temp 98.2 ??F (36.8 ??C) (Bladder) Resp 12 Ht 6' 4 (1.93 m) Wt (!) 242 lb 1 oz (109.8 kg) SpO2 100% BMI 29.47 kg/m?? Gen - jaundiced HEENT - NCAT Neck - trachea midline CV - RRR, trace edema Chest/Lungs - CTAB, non-labored Abd - soft; nt/nd Skin - juandice Neuro -awake and alert, somewhat somnolent Labs/Xrays reviewed. MELD 3.0: 39 at 08/15/2024 5:55 AM Calculated from: Serum Creatinine: 2.93 mg/dL at 08/15/2024 5:55 AM Serum Sodium: 145 mmol/L (Using max of 137 mmol/L) at 08/15/2024 5:55 AM Total Bilirubin: 40.4 mg/dL at 08/15/2024 5:55 AM Serum Albumin: 3.5 g/dL at 08/15/2024 5:55 AM INR(ratio): 2 at 08/15/2024 5:55 AM Age at listing (hypothetical): 39 years Sex: Male at 08/15/2024 5:55 AM Assessment and Plan #Acute metabolic encephalopathy: HE--->cont lactulose/rifaximin/ zinc, titrate to 3-4 BMS #Acute on chronic liver failure #EtOH cirrhosis d/b HE, ascites: RUQ 4/2 w/ cirrhosis, no lesions, splenomeagly, moderat ascites, nl vasculature, para 4/3 w/o SBP-->daily MELD labs, hepatology o/c #Acute kidney injury on CKD: c/f HRS vs prerenal vs ATN; recent baseline sCr 2.2-2.8, no hydro on US-->nephrology/hepatology o/c, improved, d/c bicarb gtt, albumin, octreotide; avoid nephrotoxics,monitor UOP #shock: vasodistributive from acute on chronic liver failue -->off levo, MAP goal >65 #H/o RCC #Hyponatremia: hypervolemic/hyponatremia-->resolved #NAGMA-:acute renal failure/RTA? --> d/c bicarb #EtOH abuse-->monitor for withdrawal, CIWA, rally pack #Coagulopathy: cirrhosis and possible nutritional deficiency-->s/p Vitk x 3 days #thrombocytopenia/anemia: transfuse for hgb <7, plts <50, <10 if bleeding Remainder per resident/SAWYER note ICU Checklist DVT/Anticoagulation: {SQ UFH GI Ulcer Prophylaxis: PPI Nutrition: PO LDA: Patient Lines/Drains/Airways Status Active Line / PIV Line Name Placement date Placement time Site Days CVC Triple Lumen 08/13/24 Right Internal jugular 08/13/24 1340 Internal jugular 2 Peripheral IV 08/12/24 Anterior;Left Forearm 08/12/24 1855 Forearm 2 Peripheral IV 08/12/24 Anterior;Right Forearm 08/12/242021 Forearm 2 Peripheral IV 08/13/24 Anterior;Left;Proximal Forearm 08/13/24 1900 Forearm 1 Invasive Lines: Continue current access Berkowitz Cath: Present Bowel Integrity: PEG/Laxatives ordered Rectal Tube: Remove Code Status: Full Code Next of kin / POA update: Patient/NOK/POA updated at bedside Selby Consent: will review PT/OT: ordered Med list reviewed: reviewed I spent a total of 49 minutes of critical care time caring for this patient with shock, decompensated cirrhosis, acute metabolic encephalopathy acute kidney injury, including direct patient contact, management of life support systems review of data (i.e.: imaging and lab), discussion with team members, and this time excludes time spent on procedures Critical care was necessary to treat and prevent life-threatening deterioration from these conditions and requires high complexity decision making for assessment and support This note was completely edited, written and reviewed by me and consists of information cut and pasted from the my most recent visit, my smart phrases and other Epic tools. I have personally reviewedall aspects of this note to at least include reviewing this patient's chart and problem list, updating the history, physical exam, lab and procedure results, and assessment and plan as detailed aboveand below. As such this visit note reflects my current evaluation and management for this patient. MATHIEU BECKER MD, DO 2:04 PM, 08/15/2024 * Ciera Camilo MD - 08/15/2024 9:05 AM EDT Images from the original note were not included. Department of Internal Medicine Nephrology & Hypertension Consult Progress Note Patient: Blair Gilbert Date of Admit: 08/12/2024 Referring physician: Raza Rhoades MD Assessment Renal Function: Recent Labs 08/15/24 0555 08/14/24 2318 08/14/24 1537 BUN 48* 52* 54* CREATININE 2.93* 3.20* 3.12* # NADIYA on CKD stage II, improving Continues to have good UO of 2.8L. NADIYA appears to be prerenal rather than HRS based on improvement from albumin. Poor po intake with 240 mL documented yesterday. # Uremia, improving Mentation improved today. Ammonia decreased 248 -> 168. Lactulose increased on 08/14 to q4h, had 2.8L of stool output yesterday. # hx left renal mass 4 cm Bosniak 4 complex and solid cystic renal mass in the left kidney, s/p cryoablation with IR 10/2022. Documentation of concern for congenital renal disorder throughout chart but not mentioned in outpatient Nephrology note. Pathology with scant atypical cells with clear cytoplasm, differential includes clear cell RCC, unable to exclude atypical renal cyst and clear cell papillary renal cell tumor due to small sample. # mild R hydronephrosis, resolved Identified on ELAINE on 07/26/24. Possibly 2/2 nephrolithiasis. Not present on repeat ELAINE on 08/13/24. Electrolytes: Na: 145 K: 3.0 Cl: 112 Alb: 3.5; 3.5 Ma.1 Ca: 9.5 Phos: 3.5 # hypokalemia Possibly 2/2 lactulose, reports 3-4 BM daily at home but had 7 BM yesterday with increase in lactulose. Acid Base Status: Anion Gap: 12 Bicarb: 21 # Acidosis, improving Mild HAGMA resolved. NAGMA could be from stool output 2/2 lactulose as well as from home topiramatefor AUD inhibiting bicarb resorption. Bicarb improving with isotonic bicarb gtt. Hypertension/CVS: BP: 144/73 Off Levo since 08/14 at 1200. PLAN - No CRRT needed at this time - Please continue medical management for uremia - Renal will continue to follow Thank you for allowing us to participate in this patient's care. Discussed with Consult Staff. Ciera Camilo MD Internal Medicine-Pediatrics PGY-1 Chief Complaint Chief Complaint Patient presents with Hypotension Reason for Consult C/f HRS History of Present Illness Blair Gilbert is a 39 y.o. y/o male with PMHx of alcohol-related cirrhosis d/b ascites, HE, and esophageal and gastric varices, recent admission to [facility] for prerenal NADIYA (07/25-07/29), acute pancreatitis 2/2 ERCP, hypothyroidism, hyperlipidemia, anxiety, CKD, and hx left RCC presenting with increased a bdominal distention, generalized weakness, and worsening Cr on recent blood draw. He is accompaniedby his and his [id number]. Initially [place] [facility] [place] transferred to MICU for worsening hypotension. Reportedly has not hadascites before but MRI abdomen from 08/2022 with mild perihepatic and perisplenic ascites. Underwentdiagnostic paracentesis on 08/14 with 100 mL of fluid removed, no evidence of SBP. reports that he has abstained from alcohol use for the last 1.5 months since prior admission to for alcoholic hepatitis (07/08-07/11). reports he is currently in rehab. Medications: Home Medications: Home Medications Medication Sig Taking? Last Dose carvediloL (COREG) 12.5 MG tablet Take 1 tablet (12.5 mg total) by mouth 2 times a day with meals. Yes 08/11/2024 Bedtime folic acid (FOLVITE) 1 MG tablet Take 1 tablet (1 mg total) by mouth daily. Yes 08/12/2024 Morning lactulose (CHRONULAC) 10 gram/15 mL solution Take 30 mLs (20 g total) by mouth 2 times a day. Yes 08/12/2024 Morning levothyroxine (SYNTHROID) 75 MCG tablet Take 1 tablet (75 mcg total) by mouth every morning before breakfast. Yes 08/12/2024 Morning NEXLIZET 180-10 mg Tab Take 1 tablet by mouth daily. Yes 08/12/2024 pantoprazole (PROTONIX) 40 MG tablet Take 1 tablet (40 mg total) by mouth every morning before breakfast. Yes 08/12/2024 Morning rifAXIMin (XIFAXAN) 550 mg Tab tablet Take 1 tablet (550 mg total) by mouth 2 times a day. Yes 08/12/2024 Morning thiamine HCl (VITAMIN B-1) 100 MG tablet Take 1 tablet (100 mg total) by mouth daily. Yes 08/11/2024Morning topiramate (TOPAMAX) 25 MG tablet Take 1 tablet (25 mg total) by mouth daily for 7 days, THEN 2 tablets (50 mg total) daily for 7 days, THEN 3 tablets (75 mg total) daily for 7 days, THEN 4 tablets (100 mg total) daily for 7 days. Increase dosage weekly by 25 mg as tolerated, please follow-up with your PCP with plan to increase dosage up to 200 mg. Yes 08/12/2024 Morning traMADoL (ULTRAM) 50 mg tablet Take 1 tablet (50 mg total) by mouth every 12 hours as needed for Pain (Pain). Yes 08/12/2024 Morning lidocaine (LIDODERM) 5 % Place 1 patch onto the skin daily. Apply patch for 12 hours and then remove patch and leave off for 12 hours. Unknown nicotine (NICODERM CQ) 21 mg/[address] 1 patch onto the skin daily. Unknown Inpatient Meds: [Held by provider] carvediloL 12.5 mg Oral BID WC folic acid 1 mg Oral Daily 0900 [Held by provider] heparin 5,000 Units Subcutaneous 3 times per day lactulose 20 g Per NG / OG tube Q4H levothyroxine 75 mcg Oral QAM AC melatonin 3 mg Oral DAILY 1800 mupirocin 1 g Topical BID pantoprazole (PROTONIX) IV 40 mg Intravenous DAILY 0600 phytonadione (vitamin K1) (AQUA-MEPHYTON) 10 mg in sodium chloride 0.9 % 50 mL IVPB 10 mg Intravenous Daily 0900 potassium chloride (KCl) 20 mEq Intravenous Q1HRS rifAXIMin 550 mg Oral BID thiamine HCl 100 mg Oral Daily 0900 zinc sulfate 220 mg Oral Daily 0900 Continuous Infusions: norepinephrine Stopped (08/14/24 1259) octreotide (SANDOSTATIN) 500 mcg/mL 2 mcg/mL in dextrose 5% in water (D5W) 250 mL infusion 50 mcg/hr (08/15/24 0600) sodium bicarbonate 150 mEq in dextrose 5% in water (D5W) 1,000 mL IV infusion 100 mL/hr (08/15/24 0600) PRN medications: acetaminophen, dextrose 10% in water OR dextrose 10% in water, glucose In addition to the above an extensive amount of complex data in the patients lab and chart were reviewed. Physical Exam Gen: Sitting up in bed, preparing to ambulate with assistance of PT HEENT: NC/AT. Scleral icterus present. CV: RRR PULM: Normal WOB on RA ABD: Moderately distended EXT: No BLE edema SKIN: Warm and dry. Diffuse jaundice. NEURO: Somnolence improved compared to yesterday Diagnostic Imaging Reviewed in EMR. Cosigned by Dwayne Paez MD at 08/15/2024 3:14 PM EDT Associated attestation - Dwayne Paez MD - 08/15/2024 3:14 PM EDT I saw and examined the patient. I discussed with the resident or fellow and agree with Dr. Camilo'sfindings and plan as documented in the note. Prerenal acute kidney injury and end-stage disease of the liver patient responded very well to albumin challenge therefore excluding the diagnosis of hepatorenal syndrome for now. Patient apparently is a transplant candidate for liver transplant in [facility] once he is open for 6 months. Renal function remains stable. Will continue to follow the clinical course while here. Dwayne Paez MD, This note was completely edited, written and reviewed by me and consists of information cut and pasted from the my most recent visit, my smart phrases and other Epic tools. I have personally reviewedall aspects of this note to at least include reviewing this patient's chart and problem list, updating the history, physical exam, lab and procedure results, and assessment and plan as detailed aboveand below. As such this visit note reflects my current evaluation and management for this patient. * Tatiana Pitts, RD - 08/15/2024 8:18 AM EDT [facility] Medical Nutrition Therapy Reason(s) for Completion: Nutrition Services Protocol Diet Order: NPO effective now Nutrition Support: none Pertinent Information: Blair Gilbert is an 39 y.o. male with a PMHx of significant for cirrhosis 2/2EtOH use d/b ascites, recent EtOH hepatitis, CKD, RCC, HTN, HLD who presented to the hospital on 08/12/2024 for worsening generalized weakness and abdominal distention, worsening renal function. Pt is on LOS # 3, pt discussed on medical rounds, nutrition plan and goals discussed, pt is on roomair, plan to start EN support today, K 3.0, received replacement, +2825 ml UOP/24 hrs, 2800 ml stool output and x7 BM noted over the last 24 hrs, receiving Lactulose/Rifaximin, thiamine supplement. See EN recommendations below Problem List[1] Past Medical History: Diagnosis Date Alcoholic cirrhosis of liver (CMS-HCC) Alcoholic hepatitis Esophageal varices (CMS-HCC) Hepatorenal syndrome (CMS-HCC) Hypertension Other hyperlipidemia 07/26/2024 Renal cell carcinoma (CMS-HCC) Thrombocytopenia (CMS-HCC) Thyroid disease Scheduled Meds: [Held by provider] carvediloL 12.5 mg Oral BID WC folic acid 1 mg Oral Daily 0900 [Held by provider] heparin 5,000 Units Subcutaneous 3 times per day lactulose 20 g Per NG / OG tube Q4H levothyroxine 75 mcg Oral QAM AC melatonin 3 mg Oral DAILY 1800 mupirocin 1 g Topical BID pantoprazole (PROTONIX) IV 40 mg Intravenous DAILY 0600 phytonadione (vitamin K1) (AQUA-MEPHYTON) 10 mg in sodium chloride 0.9 % 50 mL IVPB 10 mg Intravenous Daily 0900 potassium chloride (KCl) 20 mEq Intravenous Q1HRS rifAXIMin 550 mg Oral BID thiamine HCl 100 mg Oral Daily 0900 zinc sulfate 220 mg Oral Daily 0900 Continuous Infusions: norepinephrine Stopped (08/14/24 1259) octreotide (SANDOSTATIN) 500 mcg/mL 2 mcg/mL in dextrose 5% in water (D5W) 250 mL infusion 50 mcg/hr (08/15/24 0600) sodium bicarbonate 150 mEq in dextrose 5% in water (D5W) 1,000 mL IV infusion 100 mL/hr (08/15/24 0600) PRN Meds:acetaminophen, dextrose 10% in water OR dextrose 10% in water, glucose Pertinent Labs: Lab Results Component Value Date CREATININE 2.93 (H) 08/15/2024 BUN 48 (H) 08/15/2024 NA 145 08/15/2024 K 3.0 (L) 08/15/2024 CL 112 (H) 08/15/2024 CO2 21 08/15/2024 Lab Results Component Value Date CALCIUM 9.5 08/15/2024 PHOS 3.5 08/15/2024 Lab Results Component Value Date MG 2.1 08/15/2024 Lab Results Component Value Date GLUCOSE 151 (H) 08/15/2024 Lab Results Component Value Date WBC 7.2 08/14/2024 Lab Results Component Value Date ALBUMIN 3.5 08/15/2024 ALBUMIN 3.5 08/15/2024 Temp (24hrs), Av.2 ??F (36.8 ??C), Min:98.1 ??F (36.7 ??C), Max:98.4 ??F (36.9 ??C) Edema: non-pitting Skin Integrity: bruising, jaundice GI: +BM Potential Nutrition Related Factor(s): Appetite Change Within the past 12 months, you worried that your food would run out before you got the money to buymore. Never true Within the past 12 months, the food you bought just didn't last and you didn't have money to get more. Never true Food Allergies/Intolerances: NKFA Cultural Requests: None noted 39 y.o. Male Ht Readings from Last 1 Encounters: 08/13/24 6' 4 (1.93 m) Admit wt /: 248 lb 10.9 oz bed scale Wt Readings from Last 1 Encounters: 08/15/24 (!) 242 lb 1 oz (109.8 kg) Body mass index is 29.47 kg/m??. BMI Class: Overweight [place] Body Weight 202 lb (+/- 10%) Weight History: Wt Readings from Last 5 Encounters: 08/15/24 (!) 242 lb 1 oz (109.8 kg) 07/28/24 (!) 245 lb (111.1 kg) Nutrition Focused Physical Exam: Per review of nursing screen, no nutrition related problems identified on admit Estimated Nutrition Needs: Needs based on: 109 kg CBW Kcals/day:[id number] (20-22 kcals/kg) Protein g/day: 130 (1.2g/kg) Carbohydrate g/day: not applicable Fluid ml/day: per MD Nutrition Related Diagnosis: Nutrition Diagnosis: Predicted inadequate oral intake Related To: appetite change As Evidenced By: po intake less than 25% Recommended Interventions: Initiate/Modify/Continue/Discontinue Enteral Nutrition Goals: Tolerate enteral nutrition within 1-3 days Nutrition Discharge Planning: Discharge plan of care for nutrition ongoing pending clinical course. Follow up: per policy while inpatient. Recommendation(s) to provider: Recommend change to Isosource 1.5 @ 20-65 ml/hr (1430 ml TV provides 2145 kcals, 97 g protein, 252 g CHO, 21 g fiber, 1093 ml free water) Once goal rate achieved/tolerated, add Prosource x1 packet daily Free water per MD Monitor electrolytes and replace as needed Will monitor EN intake/tolerance/BUN and adjust Prosource supplement when feasible Janet Pitts MS, RDN, LD, [facility] Clinical Dietitian MICU/MSD Contact via Secure Epic Chat [1] Patient Active Problem List Diagnosis Alcoholic cirrhosis of liver without ascites (CMS-HCC) Hepatorenal syndrome (CMS-HCC) NADIYA (acute kidney injury) (CMS-HCC) Alcohol use disorder Metabolic encephalopathy Hypertension Other hyperlipidemia Thrombocytopenia (CMS-HCC) * Feliciano Freeman MD - 08/15/2024 7:51 AM EDT [facility] HEPATOLOGY CONSULT NOTE Referring Physician: Raza Rhoades MD Consult Attending: Dr Maza 08/15/2024 7:51 AM Reason for Consult: co-management Blair Gilbert is a 39 y.o. male with EtOH cirrhosis d/b HE, also with small non- bleeding EV, recent alcohol-associated hepatitis, RCC s/p treatment and c/f congenital renal disorder, HTN, HLD, CKD, presenting with generalized weakness and worsening outpatient labs. Of note, patient was recently admitted 07/08/24-07/23/24 at with alcohol- associated hepatitis and ACLF in the setting of underlying EtOH cirrhosis. Was treated with NAC and PO steroids. At had several ultrasounds without ascites or PVT. Discharged on lactulose + rifaximin, carvedilol 12.5 mg BID, as well as 28d course of prednisolone. Was also discharged on midodrine and octreotide? Has not been able to get octreotide. PETH >2000. Drug panel negative. Other infectious/autoimmune serologies negative. Marked ineligible d/t alcohol use. Then re-admitted to [facility] 07/25-07/29 after worsening outpatient labs (NADIYA). also noted ongoing/worsening jaundice. Repeat US without ascites. His last drink was prior to admission at . During prior admission, renal function improved with volume expansion, held octreotide and midodrine. Given no large volume ascites and incongruent urine studies, thought renal function was not relatedto HRS physiology but rather pre-renal. Presents with generalized weakness, worsening labs in outpatient setting. On arrival, had been intermittently hypotensive though no fevers or tachycardia, no requiring O2. Sodium 129 (intermittently low on past admission), Cr 4.84 (from 2.28 on discharge), lactate wnl, Hgb 12.5 -> 10.6 (no s/sx of GI bleeding), no leukocytosis, AST normalized, albumin newly low at 2.9, and T bili down from high >60 to 33.4. Initially on the floor but moved to MICU due to pressures. On levophed gtt and octreotide gtt. Regarding social support/EtOH: Reports being diagnosed with cirrhosis about 2 years ago. Since then, he has stopped drinking alcohol twice, each time for about 2-3 months before relapse. He had seen two counselors in the past - one was not a good fit for him and the other moved away. 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 is main support system at home. Interval History: Mental status improved this morning Rectal tube w/ ~2L of output w/ lactulose, decreased dosing frequency this AM Afebrile, vitals stable. Renal function improving with albumin and levophed. Sodium normalized. T bili uptrending. No leukocytosis. Hgb stable. Current Medications Current Facility-Administered Medications Medication Dose Frequency Provider Last Admin acetaminophen 650 mg Q4H PRN Edwige Bernard MD 650 mg at 08/13/242036 [Held by provider] carvediloL 12.5 mg BID Edwige Bernard MD dextrose 10% in water 12.5 g Q15 Min PROlga Bernard MD Or dextrose 10% in water 25 g Q15 Min PRN Edwige Bernard MD folic acid 1 mg Daily 0900 Edwige Bernard MD 1 mg at 08/14/24 1158 glucose 12 g Q15 Min PROlga Bernard MD [Held by provider] heparin 5,000 Units 3 times per day Edwige Bernard MD 5,000 Units at 08/13/24 1247 lactulose 20 g Q4H Terra Tamera, DO 20 g at 08/15/24 0541 levothyroxine 75 mcg QAM AC Edwige Bernard MD 75 mcg at 08/15/24 0541 melatonin 3 mg DAILY 1800 Edwige Bernard MD 3 mg at 08/14/24 1817 mupirocin 1 g BID Terra Tamera, DO 1 g at 08/14/24 1941 norepinephrine 0-30 mcg/min Continuous Mak Armenta, EZEKIEL Stopped at 08/14/24 1259 octreotide (SANDOSTATIN) 500 mcg/mL 2 mcg/mL in dextrose 5% in water (D5W) 250 mL infusion 50 mcg/hr Continuous Terra Tamera, DO 50 mcg/hr at 08/15/24 0600 pantoprazole (PROTONIX) IV 40 mg DAILY 06 Terra Tamera, DO 40 mg at 08/15/24 0522 phytonadione (vitamin K1) (AQUA-MEPHYTON) 10 mg in sodium chloride 0.9 % 50 mL IVPB 10 mg Daily 09 Maliha Will, DO 10 mg at 08/14/24 0939 potassium chloride (KCl) 20 mEq Q1HRS Terra Tamera, DO 20 mEq at 08/15/24 0701 rifAXIMin 550 mg BID Edwige Bernard MD 550 mg at 08/14/24 2115 sodium bicarbonate 150 mEq in dextrose 5% in water (D5W) 1,000 mL IV infusion 100 mL/hr Continuous Terra Tamera, DO Rate Verify at 08/15/24 0600 thiamine HCl 100 mg Daily 0900 Edwige Bernard MD 100 mg at 08/14/24 1158 zinc sulfate 220 mg Daily 09 Quintin Farias, DO 220 mg at 08/14/24 1324 Review of Systems 12 point review of systems negative except as above. Physical Examination Blood pressure (!) 128/98, pulse 69, temperature 98.4 ??F (36.9 ??C), temperature source Bladder, resp. rate 13, height 6' 4 (1.93 m), weight (!) 242 lb 1 oz (109.8 kg), SpO2 100%. Gen: Encephalopathic, non-frail. HEENT: Mucous membranes moist. +scleral icterus. CV: Regular rate and rhythm. Lungs: Normal WOB Abdomen: Soft, nontender, mildly distended. No rebound or guarding present. No appreciable fluid wave. Extremities: 1+ bilateral lower extremity edema. Skin: No bruising or rash noted.+jaundice,+ spider angiomata and palmar erythema. Neuro: No focal deficits. + Asterixis. Psych: Unable to assess Labs/Imaging Lab Results Component Value Date GLUCOSE 151 (H) 08/15/2024 BUN 48 (H) 08/15/2024 CO2 21 08/15/2024 CREATININE 2.93 (H) 08/15/2024 K 3.0 (L) 08/15/2024 NA 145 08/15/2024 CL 112 (H) 08/15/2024 CALCIUM 9.5 08/15/2024 Lab Results Component Value Date ALKPHOS 74 08/15/2024 ALT 31 08/15/2024 AST 57 (H) 08/15/2024 BILITOT 40.4 (H) 08/15/2024 ALBUMIN 3.5 08/15/2024 ALBUMIN 3.5 08/15/2024 BILIDIRECT 25.60 (H) 08/15/2024 PROT 4.7 (L) 08/15/2024 Lab Results Component Value Date MG 2.1 08/15/2024 Lab Results Component Value Date PHOS 3.5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 complexity decision making for assessment and support This note was completely edited, written and reviewed by me and consists of information cut and pasted from the my most recent visit, my smart phrases and other Epic tools. I have personally reviewedall aspects of this note to at least include reviewing this patient's chart and problem list, updating the history, physical exam, lab and procedure results, and assessment and plan as detailed aboveand below. As such this visit note reflects my current evaluation and management for this patient. MATHIEU BECKER MD, DO 2:04 PM, 08/14/2024 * Ciera Camilo MD - 08/14/2024 8:49 AM EDT Images from the original note were not included. Department of Internal Medicine Nephrology & Hypertension Consult Progress Note Patient: Blair Gilbert Date of Admit: 08/12/2024 Referring physician: Raza Rhoades MD Assessment Renal Function: Recent Labs 08/14/24 0553 08/14/24 0203 08/13/242006 BUN 58* 61* 61* CREATININE 3.33* 3.62* 3.53* # NADIYA on CKD stage II Improving Cr from 4.84 to 3.33 since starting albumin challenge. Good UO of 3.6 L. NADIYA appears to be prerenal rather than HRS based on improvement with albumin. # Uremia Worsening mentation with elevated ammonia this AM to 248. Already on lactulose with 3 BM yesterday,continuing medical management at this time but low threshold for initiation of CRRT. # hx left renal mass 4 cm Bosniak 4 complex and solid cystic renal mass in the left kidney, s/p cryoablation with IR 10/2022. Documentation of concern for congenital renal disorder throughout chart but not mentioned in outpatient Nephrology note. Pathology with scant atypical cells with clear cytoplasm, differential includes clear cell RCC, unable to exclude atypical renal cyst and clear cell papillary renal cell tumor due to small sample. # mild R hydronephrosis, resolved Identified on ELAINE on 07/26/24. Possibly 2/2 nephrolithiasis. Not present on repeat ELAINE on 08/13/24. Electrolytes: Na: 139 K: 3.6 Cl: 112 Alb: 3.8; 3.8 Ma.3 Ca: 9.2 Phos: 2.8 # hypokalemia, improving Possibly 2/2 lactulose, reports 3-4 BM daily. Acid Base Status: Anion Gap: 12 Bicarb: 15 # Acidosis Mild HAGMA resolved. NAGMA could be from stool output 2/2 lactulose as well as from home topiramateinhibiting bicarb resorption. Topiramate was started last admission for alcohol use disorder, but with his CKD and lactulose he is already predisposed to metabolic acidosis - would consider re- engaging Addiction Medicine for other options. Also may have component of respiratory acidosis as his CO2is slightly lower than the expected compensation of 28-32. Hypertension/CVS: BP: 112/56 PLAN - continue repleting bicarb w/ isotonic bicarb gtt until bicarb >= 21 - low threshold for CRRT if uremia does not improve with medical management - d/c albumin, fluids per primary Thank you for allowing us to participate in this patient's care. Discussed with Consult Staff. Ciera Camilo MD Internal Medicine-Pediatrics PGY-1 Chief Complaint Chief Complaint Patient presents with Hypotension Reason for Consult C/f HRS History of Present Illness Blair Gilbert is a 39 y.o. y/o male with PMHx of alcohol-related cirrhosis d/b ascites, HE, and esophageal and gastric varices, recent admission to [facility] for prerenal NADIYA (07/25-07/29), acute pancreatitis 2/2 ERCP, hypothyroidism, hyperlipidemia, anxiety, CKD, and hx left RCC presenting with increased a bdominal distention, generalized weakness, and worsening Cr on recent blood draw. He is accompaniedby his and his [id number]. Initially [place] [facility] [place] transferred to MICU for worsening hypotension. Reportedly has not hadascites before but MRI abdomen from 08/2022 with mild perihepatic and perisplenic ascites. reports that he has abstained from alcohol use for the last 1.5 months since prior admission to for alcoholic hepatitis (07/08-07/11). reports he is currently in rehab. Medications: Home Medications: Home Medications Medication Sig Taking? Last Dose carvediloL (COREG) 12.5 MG tablet Take 1 tablet (12.5 mg total) by mouth 2 times a day with meals. Yes 08/11/2024 Bedtime folic acid (FOLVITE) 1 MG tablet Take 1 tablet (1 mg total) by mouth daily. Yes 08/12/2024 Morning lactulose (CHRONULAC) 10 gram/15 mL solution Take 30 mLs (20 g total) by mouth 2 times a day. Yes 08/12/2024 Morning levothyroxine (SYNTHROID) 75 MCG tablet Take 1 tablet (75 mcg total) by mouth every morning before breakfast. Yes 08/12/2024 Morning NEXLIZET 180-10 mg Tab Take 1 tablet by mouth daily. Yes 08/12/2024 pantoprazole (PROTONIX) 40 MG tablet Take 1 tablet (40 mg total) by mouth every morning before breakfast. Yes 08/12/2024 Morning rifAXIMin (XIFAXAN) 550 mg Tab tablet Take 1 tablet (550 mg total) by mouth 2 times a day. Yes 08/12/2024 Morning thiamine HCl (VITAMIN B-1) 100 MG tablet Take 1 tablet (100 mg total) by mouth daily. Yes 08/11/2024Morning topiramate (TOPAMAX) 25 MG tablet Take 1 tablet (25 mg total) by mouth daily for 7 days, THEN 2 tablets (50 mg total) daily for 7 days, THEN 3 tablets (75 mg total) daily for 7 days, THEN 4 tablets (100 mg total) daily for 7 days. Increase dosage weekly by 25 mg as tolerated, please follow-up with your PCP with plan to increase dosage up to 200 mg. Yes 08/12/2024 Morning traMADoL (ULTRAM) 50 mg tablet Take 1 tablet (50 mg total) by mouth every 12 hours as needed for Pain (Pain). Yes 08/12/2024 Morning lidocaine (LIDODERM) 5 % Place 1 patch onto the skin daily. Apply patch for 12 hours and then remove patch and leave off for 12 hours. Unknown nicotine (NICODERM CQ) 21 mg/[address] 1 patch onto the skin daily. Unknown Inpatient Meds: [Held by provider] carvediloL 12.5 mg Oral BID WC folic acid 1 mg Oral Daily 0900 [Held by provider] heparin 5,000 Units Subcutaneous 3 times per day lactulose 20 g Oral TID levothyroxine 75 mcg Oral QAM AC melatonin 3 mg Oral DAILY 1800 mupirocin 1 g Topical BID pantoprazole (PROTONIX) IV 40 mg Intravenous DAILY 0600 phytonadione (vitamin K1) (AQUA-MEPHYTON) 10 mg in sodium chloride 0.9 % 50 mL IVPB 10 mg Intravenous Daily 09 rifAXIMin 550 mg Oral BID thiamine HCl 100 mg Oral Daily 09 Continuous Infusions: norepinephrine 6 mcg/min (08/14/24699) octreotide (SANDOSTATIN) 500 mcg/mL 2 mcg/mL in dextrose 5% in water (D5W) 250 mL infusion 50 mcg/hr (08/14/24699) sodium bicarbonate 150 mEq in dextrose 5% in water (D5W) 1,000 mL IV infusion 100 mL/hr (08/14/24699) sodium chloride 0.9 % Stopped (08/14/24 0013) sodium chloride 0.9 % Stopped (08/14/24 0144) PRN medications: acetaminophen, dextrose 10% in water OR dextrose 10% in water, glucose In addition to the above an extensive amount of complex data in the patients lab and chart were reviewed. Physical Exam Gen: Drowsy appearing male lying in bed HEENT: NC/AT. Scleral icterus present. CV: RRR PULM: Normal WOB on RA ABD: Moderately distended EXT: No BLE edema SKIN: Warm and dry. Diffuse jaundice. NEURO: Able to state full name after repeated prompting. States date is May 25, unable to stateyear. Correctly says he is at [facility], unable to say why. Diagnostic Imaging Reviewed in EMR. Cosigned by Dwayne Paez MD at 08/14/2024 7:34 PM EDT Associated attestation - Dwayne Paez MD - 08/14/2024 7:34 PM EDT I saw and examined the patient. I discussed with the resident or fellow and agree with Dr. Black's findings and plan as documented in the note. Patient has excellent urine output with reversal of creatinine trend. Patient has hyperammonemia developing. MICU team prefers CRRT as patient is undergoing transplant eval. Will await discussion with hepatology team Dwayne Paez MD, This note was completely edited, written and reviewed by me and consists of information cut and pasted from the my most recent visit, my smart phrases and other Epic tools. I have personally reviewedall aspects of this note to at least include reviewing this patient's chart and problem list, updating the history, physical exam, lab and procedure results, and assessment and plan as detailed aboveand below. As such this visit note reflects my current evaluation and management for this patient. * Feliciano Freeman MD - 08/14/2024 8:33 AM EDT [facility] HEPATOLOGY CONSULT NOTE Referring Physician: Raza Rhoades MD Consult Attending: Dr Maza 08/14/2024 8:33 AM Reason for Consult: co-management Blair Gilbert is a 39 y.o. male with EtOH cirrhosis d/b HE, also with small non- bleeding EV, recent alcohol-associated hepatitis, RCC s/p treatment and c/f congenital renal disorder, HTN, HLD, CKD, presenting with generalized weakness and worsening outpatient labs. Of note, patient was recently admitted 07/08/24-07/23/24 at with alcohol- associated hepatitis and ACLF in the setting of underlying EtOH cirrhosis. Was treated with NAC and PO steroids. At had several ultrasounds without ascites or PVT. Discharged on lactulose + rifaximin, carvedilol 12.5 mg BID, as well as 28d course of prednisolone. Was also discharged on midodrine and octreotide? Has not been able to get octreotide. PETH >2000. Drug panel negative. Other infectious/autoimmune serologies negative. Marked ineligible d/t alcohol use. Then re-admitted to [facility] 07/25-07/29 after worsening outpatient labs (NADIYA). also noted ongoing/worsening jaundice. Repeat US without ascites. His last drink was prior to admission at . During prior admission, renal function improved with volume expansion, held octreotide and midodrine. Given no large volume ascites and incongruent urine studies, thought renal function was not relatedto HRS physiology but rather pre-renal. Now presents with generalized weakness, worsening labs in outpatient setting. On arrival, had been intermittently hypotensive though no fevers or tachycardia, no requiring O2. Sodium 129 (intermittently low on past admission), Cr 4.84 (from 2.28 on discharge), lactate wnl, Hgb 12.5 -> 10.6 (no s/sx of GI bleeding), no leukocytosis, AST normalized, albumin newly low at 2.9, and T bili down fromhigh >60 to 33.4. Initially on the floor but moved to MICU due to pressures. On levophed gtt andoctreotide gtt. Regarding social support/EtOH: Reports being diagnosed with cirrhosis about 2 years ago. Since then, he has stopped drinking alcohol twice, each time for about 2-3 months before relapse. He had seen two counselors in the past - one was not a good fit for him and the other moved away. 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 is main support system at home. Interval History: Worsening mental status, asterixis on exam, documented 3 BM. Afebrile, vitals stable. Renal function improving with albumin and levophed. Creatinine down to 3.33. Sodium normalized. T bili uptrending to 37.3. AST also slightly increased.No leukocytosis. Hgb stable. Current Medications Current Facility-Administered Medications Medication Dose Frequency Provider Last Admin acetaminophen 650 mg Q4H PRN Edwige Bernard MD 650 mg at 08/13/242036 [Held by provider] carvediloL 12.5 mg BID WC Edwige Bernard MD dextrose 10% in water 12.5 g Q15 Min PROlga Bernard MD Or dextrose 10% in water 25 g Q15 Min PRN Edwige Bernard MD folic acid 1 mg Daily 0900 Edwige Bernard MD 1 mg at 08/13/24 0917 glucose 12 g Q15 Min PROlga Bernard MD [Held by provider] heparin 5,000 Units 3 times per day Edwige Bernard MD 5,000 Units at 08/13/24 1247 lactulose 20 g TID Edwige Bernard MD 20 g at 08/13/242036 levothyroxine 75 mcg QAM AC Edwige Bernard MD 75 mcg at 08/13/24 0635 melatonin 3 mg DAILY 1800 Edwige Bernard MD 3 mg at 08/13/24 1725 mupirocin 1 g BID Terra Tamera, DO 1 g at 08/13/242040 norepinephrine 0-30 mcg/min Continuous Terra Tamera, DO 6 mcg/min at 08/14/24 0700 octreotide (SANDOSTATIN) 500 mcg/mL 2 mcg/mL in dextrose 5% in water (D5W) 250 mL infusion 50 mcg/hr Continuous Terra Tamera, DO 50 mcg/hr at 08/14/24 0700 pantoprazole (PROTONIX) IV 40 mg DAILY 06 Terra Tamera, DO 40 mg at 08/14/24 0439 phytonadione (vitamin K1) (AQUA-MEPHYTON) 10 mg in sodium chloride 0.9 % 50 mL IVPB 10 mg Daily 09 Maliha Will, DO Stopped at 08/13/24 1535 rifAXIMin 550 mg BID Edwige Bernard MD 550 mg at 08/13/242036 sodium bicarbonate 150 mEq in dextrose 5% in water (D5W) 1,000 mL IV infusion 100 mL/hr Continuous Terra Tamera, DO Rate Verify at 08/14/24 0700 sodium chloride 0.9 % 20 mL/hr Continuous Mariposa Ramirez MD Held at 08/14/24 0013 sodium chloride 0.9 % 20 mL/hr Continuous Terra Tamera, DO Held at 08/14/24 0144 thiamine HCl 100 mg Daily 09 Edwige Bernard MD Review of Systems 12 point review of systems negative except as above. Physical Examination Blood pressure 113/74, pulse 66, temperature 98.1 ??F (36.7 ??C), temperature source Bladder, resp.rate 14, height 6' 4 (1.93 m), weight (!) 251 lb 8.7 oz (114.1 kg), SpO2 100%. Gen: Encephalopathic, intermittently alert to self/location. Non-frail. HEENT:. Mucous membranes moist. +scleral icterus. CV: Regular rate and rhythm. Lungs: Normal WOB Abdomen: Soft, nontender, mildly distended. No rebound or guarding present. No appreciable fluid wave. Extremities: 1+ bilateral lower extremity edema. Skin: No bruising or rash noted.+jaundice,+ spider angiomata and palmar erythema. Neuro: No focal deficits. + Asterixis. Psych: Unable to assess Labs/Imaging Lab Results Component Value Date GLUCOSE 143 (H) 08/14/2024 BUN 58 (H) 08/14/2024 CO2 15 (L) 08/14/2024 CREATININE 3.33 (H) 08/14/2024 K 3.6 08/14/2024 NA 139 08/14/2024 CL 112 (H) 08/14/2024 CALCIUM 9.2 08/14/2024 Lab Results Component Value Date ALKPHOS 81 08/14/2024 ALT 34 08/14/2024 AST 60 (H) 08/14/2024 BILITOT 37.7 (H) 08/14/2024 ALBUMIN 3.8 08/14/2024 ALBUMIN 3.8 08/14/2024 BILIDIRECT 25.45 (H) 08/14/2024 PROT 4.8 (L) 08/14/2024 Lab Results Component Value Date MG 2.3 08/14/2024 Lab Results Component Value Date PHOS 2.8 08/14/2024 Lab Results Component Value Date WBC 9.4 08/14/2024 HGB 11.0 (L) 08/14/2024 HCT 30.1 (L) 08/14/2024 MCV 96.6 08/14/2024 PLT 61 (L) 08/14/2024 Lab Results Component Value Date INR 2.0 (H) 08/14/2024 MELD 3.0: 41 at 08/14/2024 5:53 AM Calculated from: Serum Creatinine: 3.33 mg/dL (Using max of 3 mg/dL) at 08/14/2024 5:53 AM Serum Sodium: 139 mmol/L (Using max of 137 mmol/L) at 08/14/2024 5:53 AM Total Bilirubin: 37.7 mg/dL at 08/14/2024 5:53 AM Serum Albumin: 3.8 g/dL (Using max of 3.5 g/dL) at 08/14/2024 5:53 AM INR(ratio): 2 at 08/14/2024 5:53 AM Age at listing (hypothetical): 39 years Sex: Male at 08/14/2024 5:53 AM Assessment/Plan Blair Gilbert is a 39 y.o. male with EtOH cirrhosis d/b HE, also with small non- bleeding EV, recent alcohol-associated hepatitis, RCC s/p treatment and c/f congenital renal disorder, HTN, HLD, CKD, presenting with generalized weakness and worsening outpatient labs. In the ICU due to hypotension and pressor requirements. Noted to have NADIYA on CKD and encephalopathy on admission. Worsening mental status /. #Decompensated EtOH Cirrhosis - d/b HE, new-onset ascites #ACLF - liver, renal, neurology, coagulopathy #Acute Encephalopathy #NADIYA on CKD - improving #Alcohol-Associated Hepatitis - improving - Continue albumin challenge + levophed - Urine sodium 81, not typically asscoiated with HRS, moderate ascites, improving with albumin. - Continue lactulose, would increase dose and drop NG +/- rectal lactulose. Would aim for 4-5 BM today If able. Continue rifaximin 550 mg BID. Add Zinc 220 mg BID. - Repeat broad infectious evaluation including diagnostic paracentesis if able - Holding home carvedilol 12.5 mg BID due to hypotension. May need reduced dose on d/c if pressurescan tolerate. May require midodrine TID dosing once pressors weaned for pressures - Needs repeat EGD with decompensation, can performed non-urgently inpatient with clinical stability - Daily MELD labs and urine sodium - Continue thiamine, folate supp - Needs to complete at least 3 months of chemical dependency treatment. Seen by addiction last admission. Will discuss for outpatient evaluation. This patient was discussed with attending, Dr Maza. Please see attending attestation for additional recommendations. Feliciano Freeman MD Gastroenterology & Hepatology Fellow PGY-4 Division of Digestive Diseases [facility] 08/14/2024, 8:33 AM Cosigned by Chris Orosco MD at 08/14/2024 5:51 PM EDT Associated attestation - Chris Orosco MD - 08/14/2024 5:51 PM EDT Attending Physician's Note: I saw and examined the patient. I discussed with the resident or fellow and agree with resident's/fellow's findings and plan as documented in the note. Copied / pasted information was reviewed and confirmed to be accurate. >10 point POS was performed and negative unless otherwise documented in the note. Please also see below. 39 y.o. man with complex PMH of Cirrhosis secondary to alcohol, ascites, hepatic encephalopathy, non bleeding esophageal varices, Acute alcohol hepatitis (06/2024), and CKD admitted for acute on chronic liver failure. PE Vitals: 08/14/24 1600 08/14/24 1645 08/14/24 1700 08/14/24 1715 BP: 119/76 119/63 (!) 80/55 110/63 BP Location: Right upper arm Patient Position: Lying BP Cuff Size: Large Pulse: 61 65 68 67 Resp: 11 13 16 13 Temp: TempSrc: Bladder SpO2: 100% 100% 100% 98% Weight: Height: General: awake, alert, no apparent distress HENT: + sclera icteric Neck: supple Pulmonary: good air exchange, bilateral breath sounds Cardiac: S1 and S2 heard Abdomen:soft, non-tender, non-distended, normoactive bowel sounds, no guarding or rebound, no hepatomegaly, no splenomegaly Neuro: awake, alert, oriented x 3, no confusion, no asterixis Extremities: no pedal edema Skin:+ jaundice MELD 3.0: 41 at 08/14/2024 3:37 PM MELD-Na: 39 at 08/14/2024 3:37 PM Calculated from: Serum Creatinine: 3.12 mg/dL (Using max of 3 mg/dL) at 08/14/2024 3:37 PM Serum Sodium: 140 mmol/L (Using max of 137 mmol/L) at 08/14/2024 3:37 PM Total Bilirubin: 37.7 mg/dL at 08/14/2024 5:53 AM Serum Albumin: 3.8 g/dL (Using max of 3.5 g/dL) at 08/14/2024 5:53 AM INR(ratio): 2 at 08/14/2024 5:53 AM Age at listing (hypothetical): 39 years Sex: Male at 08/14/2024 3:37 PM A&P 39 y.o. year old male with complex medical issues as detailed in HPI Acute on chronic liver failure: secondary to acute alcohol hepatitis with underlying decompensated alcohol cirrhosis. High MELD. Liver failure: bilirubin > 30, INR > 2.5. Diagnostic paracentesis. Renal failure: creatinine 3.91, underlying CKD with baseline creatinine around 1.3 -1.5. Volume expansion with albumin. On norepinephrine. Circulatory failure: on vasopressor support. Infectious workup. Cardiac workup. Brain failure: grade 3 hepatic encephalopathy on 08/14/24. 08/14/24 paracentesis negative for SBP. Started on empiric ceftriaxone on 08/14/24. The utility of CRRT to reduce ammonia levels in cirrhosis patients is questionable. Lungs: intact Varices - no signs of active bleeding. HCC screening - up to date Transplant - not suitable candidate at this time. - continue chemical dependency treatment - referral for outpatient pre pre liver transplant program Consider palliative care discussion with patient and family 08/13/24 KELLIE-C-ACLF score = 55 41.2% probability of at 1 month 61.3% probability of at 3 months 66.0% probability of at 6 months 72.7% probability of at 1 year This note was completely edited, written and reviewed by me and consists of information cut and pasted from the most recent visit, my smart phrases and other Epic tools. I have personally reviewed all aspects of this note to at least include reviewing this patient's chart and problem list, updatingthe history, physical exam, lab and procedure results, and assessment and plan as detailed above and below. As such this visit note reflects my current evaluation and management for this patient. I have reviewed all prior notes, labs, imaging and path reports. I have reviewed interval / recent lab work including: CBC, renal, hepatic, INR, viral studies, and all other labs for digestive disease relating to their medical condition. I have independently reviewed the patients recent radiologic imaging including any CT scans, MRI, ultrasound or endoscopic procedures. Finally, I have reviewed in dependently any interval GI and liver pathology. Chris Orosco MD, MPH Transplant hepatology Pager: [phone] * Mak Armenta, [facility] - 08/14/2024 7:08 AM EDT Department of Internal Medicine MICU Progress Note Blair Gilbert [id number] 08/14/2024 12:26 PM [id number] LOS: 2 days CODE Status: Full Code Interval History Blair Gilbert is a 39 y.o. male on hospital day 2. male has a past medical history of cirrhosis 2/2 EtOH use d/b ascites, recent EtOH hepatitis, CKD, RCC, HTN, HLD who presented to the hospital on 08/12/2024 for worsening generalized weakness and abdominal distention over the past week as well as worsening creatinine on recent blood draw. He was admitted to the MICU 08/13 for hypotension requiring Levophed. Significant Events Over The Past 24 Hours: - Levophed 10mcg/min-->3mcg/min - Started bicarb gtt after K repleted this morning - No pocket for paracentesis - s/p 1 unit Plts this morning for oozing from lines - Poor mental status this morning, arousable but not open eyes, oriented to person and place; obtain VBG and ammonia--> VBG ok, Ammonia 248 DAILY PLAN - Wean Levophed for MAP >70 - Continue Octreotide gtt - Continue Bicarb gtt - Continue Vitamin K 10mg D#3 - Place NG - Start Q1H lactulose - Discuss need for dialysis for hyperammonemia --> hold off for now - Give 1x dose CXT after para while awaiting results - Plan for paracentesis - Start Zinc per Hepatology Planned Labs Today: - Renal, Mg Q8H - AM CBC, Hepatic, PT/INR ROS Patient seen lying in bed. Minimally responsive. Aroused to sternal rub. Unable to follow commands. Assessment & Plan Blair Gilbert is a 39 y.o. male on hospital day 2. The principal reason for today's follow up visit is Hepatorenal syndrome (CMS-HCC). Principal Problem: Hepatorenal syndrome (CMS-HCC) Active Problems: Alcoholic cirrhosis of liver without ascites (CMS-HCC) NADIYA (acute kidney injury) (CMS-HCC) Alcohol use disorder Metabolic encephalopathy Neurology #Acute Encephalopathy --> likely Hepatic encephalopathy secondary to hyperammonemia - Poor mental status 08/14 morning, arousable but not open eyes, oriented to person and place - VBG WNL - Ammonia 167-->248 with adequate BMs - Increase Lactulose to Q1H - Continue rifaxmin - Discuss need for dialysis for hyperammonemia with Hepatology and Renal --> hold off for now Pulmonology ADDY Cardiovascular #Hypotension In setting of ESLD. Normal lactate, no s/s sepsis. - s/p albumin - Continue Octreotide - Wean Levophed for MAP >70 - Give 1x dose CXT after para while awaiting results - Plan for paracentesis Gastrointestinal #End-Stage Liver Disease/Cirrhosis 2/2 EtOH d/b HE, EV Most recent PETH was >1999 and previously declined at for OLT. Prior chart note that [facility] has been explored as well as it does not require pt sobriety (it involves a rehab program after transplant). 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 - Hold Coreg given low BP - Hepatology consulted, appreciate assistance - Limit tylenol use to <2 g daily - 3 months of chemical dependency treatment - Continue rifaximin 550 mg BID - Continue thiamine, folate supp - Increase Lactulose to Q1H - Wean Levophed for MAP >70 - s/p albumin 4/2 - Give 1x dose CXT after para while awaiting results - Plan for paracentesis - Start Zinc per Hepatology Renal #NADIYA on CKD #C/f HRS #Hx RCC #Hyperphos Patient found to have Cr 4.84 in ED after presenting for generalized weakness. Cr 2.28 [facility] and 1.54 at discharge on 07/23 from . 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 NADIYA likely 2/2 HRS given end-stage liver disease + progression of CKD due to recurrent insults/NADIYA.Improvement with albumin challenge last admission No nephrotoxins - s/p Albumin challenge 08/13 - Renal consulted, appreciate assistance - Hepatology consulted, appreciate assistance - Avoid nephrotoxins - Cr and UOP improving - Continue isotonic bicarb gtt (started 4/3 AM) #Hyponatremia Na 129 in setting of ESLD/hypervolemic hyponatremia and NADIYA. Not on diuretics #Hypokalemia Gentle repletion with 20 Kcl #NAGMA Likely 2/2 severe NADIYA though reportedly Topamax can cause metabolic acidosis, though metabolic acidosis at this time more likely related to renal dysfunction as above. Lactate WNL Acid/Base Recent Labs 08/12/24 1829 08/12/24 2332 08/13/24 0451 LACTATE 1.4 1.6 0.5 Infectious Diseases Antibiotics: None Infectious Workup: BCx (08/12): NGTD Endocrine ADDY Hematology/Oncology #Thrombocytopenia No signs of acute bleed. In setting of ESLD. No s/s bleeding - CTM #Elevated INR In setting of ESLD. No s/s bleeding. - Continue Vitamin K 10mg x 3 days #Normocytic Anemia Hgb stable in 10s. No s/s bleeding. Psychiatry #EtOH JAIR On last admission was evaluated by Addiction Medicine service. He was started on Topamax at that time. Home Medications: Topamax ramp 25 mg daily with increase daily dose gradually (eg, in 25 - 50 mg increments weekly) to a maximum of 300 mg/day. Doses >50 mg/day should be administered in 2 divideddose. Goal 200-300mg for AUD - Continue Lactulose - Discontinue Topamax as could be causing type II RTA and contributing for acidosis - recommend baseline and intermittent monitoring of serum bicarbonate at least twice a year, PRN ifpatient develops symptoms of metabolic acidosis, or consider more frequent monitoring for patients with additional risk factors of metabolic acidosis FEN/GI Electrolyte: replete prn Diet Nutrition: Diet/Nutrition Orders Diet NPO Effective Now Frequency: Effective Now Number of Occurrences: Until Specified DVT/Anticoagulation: {SQ UFH GI Ulcer Prophylaxis: PPI Nutrition: NPO LDA: Patient Lines/Drains/Airways Status Active Line / PIV Line Name Placement date Placement time Site Days CVC Triple Lumen 08/13/24 Right Internal jugular 08/13/24 1340 Internal jugular less than 1 Peripheral IV 08/12/24 Anterior;Left Forearm 08/12/24 1855 Forearm 1 Peripheral IV 08/12/24 Anterior;Right Forearm 08/12/24 202 Forearm 1 Peripheral IV 08/13/24 Anterior;Left;Proximal Forearm 08/13/24 1900 Forearm less than 1 Invasive Lines: PIVs only Berkowitz Cath: Present Bowel Integrity: PEG/Laxatives ordered Rectal Tube: None Code Status: Full Code Next of kin / POA update: Pt's at bedside 08/14. Disposition: MICU Code Status: Full Code Signed: Mak Armenta CNP 08/14/2024, 12:26 PM MICU [employer]PECT[employer] This note was copied forward from the note written by myself on 08/13/2024. I have reviewed and updated the history, physical exam, data, assessment and plan of the note so that it reflects the evaluation and management of the patient on 08/14/2024. Access/Lines/Tubes/Drains #Central: #Arterial Lines: #Peripheral: Peripheral IV 08/12/24 Anterior;Left Forearm (Active) Site Assessment Clean;Dry;Intact 08/13/24 0404 Line Status Infusing 08/13/24 0404 Dressing Status Dry;Intact 08/13/24 0404 Peripheral IV 08/12/24 Anterior;Right Forearm (Active) Site Assessment Clean;Dry;Intact 08/13/24 0404 Line Status Infusing 08/13/24 0404 Dressing Status Dry;Intact 08/13/24 0404 #Tubes/Drains/HD Access: Inpatient Medications Inpatient Meds: Scheduled: [Held by provider] carvediloL 12.5 mg Oral BID WC cefTRIAXone (ROCEPHIN) IVPB 2 g Intravenous Once folic acid 1 mg Oral Daily 0900 [Held by provider] heparin 5,000 Units Subcutaneous 3 times per day lactulose 20 g Per NG / OG tube Q1H PILAR levothyroxine 75 mcg Oral QAM AC lidocaine (PF) 2% (20 mg/mL) 10 mL Intradermal Once lidocaine melatonin 3 mg Oral DAILY 1800 mupirocin 1 g Topical BID pantoprazole (PROTONIX) IV 40 mg Intravenous DAILY 0600 phytonadione (vitamin K1) (AQUA-MEPHYTON) 10 mg in sodium chloride 0.9 % 50 mL IVPB 10 mg Intravenous Daily 0900 rifAXIMin 550 mg Oral BID thiamine HCl 100 mg Oral Daily 0900 zinc sulfate 220 mg Oral Daily 0900 Continuous: norepinephrine 2 mcg/min (08/14/24 1156) octreotide (SANDOSTATIN) 500 mcg/mL 2 mcg/mL in dextrose 5% in water (D5W) 250 mL infusion 50 mcg/hr (08/14/24 0700) sodium bicarbonate 150 mEq in dextrose 5% in water (D5W) 1,000 mL IV infusion 100 mL/hr (08/14/24 0700) sodium chloride 0.9 % Stopped (08/14/24 0013) sodium chloride 0.9 % Stopped (08/14/24 0144) PRN:acetaminophen, dextrose 10% in water OR dextrose 10% in water, glucose, lidocaine Mentation CAM: Overall CAM-ICU : No Delirium RASS: Barth Agitation Sedation Scale: -1 I/Os Intake/Output Summary (Last 24 hours) at 08/14/2024 1226 Last data filed at 08/14/2024 1048 Gross per 24 hour Intake 3340.33 ml Output 3926 ml Net -585.67 ml I/O last 3 completed shifts: In: 3024.6 [P.O.:860; I.V.:1145.8; Blood:235; IV Piggyback:783.8] Out: 3751 [Urine:3750; Stool:1] Wt Readings from Last 3 Encounters: 08/14/24 (!) 251 lb 8.7 oz (114.1 kg) 07/28/24 (!) 245 lb (111.1 kg) Vent Settings Ventilator Settings: ABG: Invalid input(s): CO2ART Lactate: Recent Labs 08/12/24 1829 08/12/24 2332 08/13/24 0451 LACTATE 1.4 1.6 0.5 Vital Signs Temp: [97.5 ??F (36.4 ??C)-98.1 ??F (36.7 ??C)] 98.1 ??F (36.7 ??C) Heart Rate: [57-67] 62 Resp: [10-26] 12 BP: (89-123)/(45-74) 118/71 BP 118/71 Pulse 62 Temp 98.1 ??F (36.7 ??C) (Bladder) Resp 12 Ht 6' 4 (1.93 m) Wt (!) 251 lb 8.7 oz (114.1 kg) SpO2 99% BMI 30.62 kg/m?? Temp (24hrs), Av.8 ??F (36.6 ??C), Min:97.5 ??F (36.4 ??C), Max:98.1 ??F (36.7 ??C) Patient Vitals for the past 4 hrs: BP Pulse Resp SpO2 08/14/24 1000 118/71 62 12 99 % 08/14/24 0900 115/71 61 19 100 % BP Min: 89/56 Max: 123/74 No data recorded Temp Av.8 ??F (36.6 ??C) Min: 97.5 ??F (36.4 ??C) Max: 98.1 ??F (36.7 ??C) Core (Body) Temperature Av.1 ??F (36.7 ??C) Min: 97.9 ??F (36.6 ??C) Max: 98.2 ??F (36.8 ??C) Pulse Av.9 Min: 57 Max: 67 Resp Av.1 Min: 10 Max: 26 SpO2 Av.8 % Min: 99 % Max: 100 % BP Min: 89/56 Max: 123/74 MAP (mmHg) Av.6 Min: 60 Max: 87 MAP (mmHg) Av.6 Min: 60 Max: 87 Physical Exam General - Seen laying in bed in no acute distress. Jaundiced HEENT - PERRL, conjugate gaze. No evidence of cranial or facial trauma. Sclera yellow. Neck - No palpable adenopathy CV - RRR without murmur or rub Chest/Lungs - CTA bilaterally. Abd - distended, non-tender to palpation -berkowitz in place Ext - +2-3 pitting edema in BLE Neuro - Minimally responsive, aroused to sternal rub. Does not follow commands. Labs Renal Recent Labs 08/13/24200608/14/2420208/14/24 0553 08/14/24 0933 NA 135 136 139 -- K 2.8* 3.5 3.6 -- CL 109 112* 112* -- CO2 14* 14* 15* -- BUN 61* 61* 58* -- CREATININE 3.53* 3.62* 3.33* -- CALCIUM 8.8 8.6 9.2 -- MG 2.3 -- 2.3 2.2 PHOS 4.4 3.4 2.8 -- CBC Recent Labs 08/13/2445008/13/24200608/14/24 0553 HGB 10.6* 10.4* 11.0* HCT 28.9* 28.6* 30.1* PLT 36* 47* 61* WBC 7.3 7.4 9.4 Liver Recent Labs 08/13/24 0008 08/13/24 04508/13/24 1248 08/14/24 0203 08/14/24 0553 AST 58* 37 -- -- 60* ALT 32 27 -- -- 34 ALKPHOS 77 71 -- -- 81 ALBUMIN 2.9* 3.3* 3.3* < > 3.6 3.8 3.8 BILITOT 34.2* 33.4* -- -- 37.7* BILIDIRECT 18.87* 21.43* -- -- 25.45* INR 2.3* 2.6* -- -- 2.0* < > = values in this interval not displayed. Diagnostic Studies Reviewed in EMR. Cosigned by Mathieu Becker MD at 08/15/2024 6:01 PM EDT Associated attestation - Mathieu Becker MD - 08/15/2024 6:01 PM EDT I independently saw and evaluated the patient, and discussed with the resident/fellow/SAWYER. I agree with the findings and plan as documented in their note. Please see my note for additions/addendums. Mathieu Becker DO, MSc Pulmonary and Critical Care Attending * Shayna Blanco, PT - 08/13/2024 1:54 PM EDT Physical Therapy Initial Assessment Name: Blair Gilbert : 1985 Attending Physician: Raza Rhoades MD Admission Diagnosis: Chronic liver failure without hepatic coma (CMS-HCC) [K72.10] Cirrhosis (CMS-HCC) [K74.60] Date: 08/13/2024 Room: [place] [address] Reviewed Pertinent hospital course: Yes Hospital Course PT/OT: 39 y.o. M presents 08/12 with worsening weakness and abdominal distension. Hypotensive on arrival, txfr MICU & started on vasopressors. CXR: (-) acute abnormality. US Abd: decompensated cirrhosis, cholelithiasis. Relevant PMH : Cirrhosis 2/2 EtOH use d/b ascites, recent EtOH hepatitis (d/c from hospital 07/29), CKD, RCC, HTN, HLD Precautions: high fall risk Activity Level: Activity as tolerated Assist: Co-evaluation performed Assessment Assessment: Impaired Bed Mobility, Impaired Transfers, Impaired Gait, Impaired Balance, Impaired Strength, Impaired Stair Negotiation, Impaired Activity Tolerance, Deconditioning Prognosis: Good Patient was agreeable to participate in PT eval this AM and tolerated PT eval fairly well. Patient is limited by fatigue, dizziness in standing- BP WNL, decreased endurance, global deconditioning. Patient will benefit from continued inpatient PT in order to promote return to PLOF and safely increase independence during functional mobility and transfers. PT will progress as tolerated and appropriate. Recommendation Recommendation: Anticipate no further PT needed after discharge Equipment Recommended: None AM-PAC 6 Clicks Basic Mobility Inpatient Short Form: PT 6 Clicks Score: 19 Mobility Recommendations for Staff Patient ability: Patient ambulates in room/ to bathroom Assist needed: with 1 person assist Equipment/ Precautions needed: use gait belt Home Living/Prior Function Patient able to provide accurate information at this time: Yes Lives With: Family Type of Home: House Home Entry: No steps to enter Home Layout: One level Bathroom Shower/Tub: Tub/shower unit Bathroom Toilet: Standard Bathroom Equipment: Shower chair Home Equipment: None Prior Function Functional Mobility: Independent ( no assistive device) Receives Help From: None needed prior to admission ADL Assistance: Independent IADL Assistance: Independent 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[place]) Pain Pain Score: 0 - No Pain Vision Hearing/Vision/Perception Hearing: No hearing deficits noted Baseline Vision: No visual deficits Overall Vision/ Perception: Within Functional Limits Cognition Overall Cognitive Status: Within Functional Limits Cognitive Assessment: Arousal/ Alertness;Orientation Level;Behavior;Following Commands;Safety Judgment;Insight;Communication Arousal/Alertness: Alert Orientation Level: Oriented X4 Behavior: Appropriate;Cooperative;Flat affect Following Commands: Follows all commands and directions without difficulty Safety Judgment: Good awareness of safety precautions Insight: Demonstrated intact insight into limitation and abilities to complete ADL's safely Communication: Verbalization Neuromuscular Overall Sensation: Patient denies any numbness/ tingling in BUE's/ BLEs Upper Extremity UE Assessment: Defer to OT evaluation for formal assessment Lower Extremity Lower Extremity LE Assessment: Strength WFL (at least 3+/5) as observed during functional activity Functional Mobility Bed Mobility Supine to Sit: Stand by assistance;head of bed flat;towards the left Sit to Supine: Stand by assistance;head of bed flat;towards the right Transfers Sit to Stand: Stand by assistance;cues for hand placement (EOB & toilet) Stand to Sit: Stand by assistance;increased time to complete task;cues for hand placement (to toilet, EOB) Gait Distance (in feet): 8+8 Level of assistance: Stand By assistance;increased time to complete task (progressing to CGA with fatigue/dizziness post toileting) Assistive Device: None (Intermittent reaching for UE support post toileting) Gait Characteristics: Steady;R decreased step length;L decreased step length;decreased michelle;WideBOS;No LOB Unable to progress further due to: fatigue, dizziness in standing- BP WNL, decreased endurance, global deconditioning Balance Sitting - Static: Independent Sitting-Dynamic: Supervision Total time in sittin minutes Standing-Static: Stand by assistance Standing-Dynamic: Stand by assistance;Contact Guard Assistance Gait belt used: Yes Outcome Measures Position after Therapy/Safety Handoff Position after treatment and safety handoff Position after therapy session: Bed (declines recliner 2/2 fatigue) Details: RN notified;visitor present;Call light/ needs within reach Alarms: Bed Alarms Status: Activated and Interfaced with call system Goals Collaborated with: Patient, Family Patient Stated Goal: to go home, to return to baseline/PLOF Goals to be met by: 08/20/24 Patient will transition from supine to sit: Supervision Patient will transition from sit to supine: Supervision Patient will transfer from sit to stand: Supervision Patient will ambulate: Supervision, distance (in feet) Distance (in feet): 50 Long-term goal to be met by: 08/27/24 Chemists Goal : Patient will ambulate 150 ft with independence Patient/Family Education Educated patient and patient's family on the role of physical therapy, goals, plan of care, importance of increased activity, discharge recommendations, transfer training, and gait training and fall prevention strategies, including need for supervision/ assistance with OOB activity and use of call light; patient and patient's family verbalized understanding. Handout(s) issued: none. Plan Plan Treatment/Interventions: LE strengthening/ROM, Therapeutic Activity, Therapeutic Exercise, Endurance training, Patient/family training, Equipment eval/education, Gait training, Neuromuscular Reeducation, Stair Training PT Frequency: minimum 3x/week The plan of care and recommendations assesses the patient's and/or caregiver's readiness, willingness, and ability to provide or support functional mobility and ADL tasks as needed upon discharge. Time Start Time: 1033 Stop Time: 1049 Time Calculation (min): 16 min Charges $PT Evaluation Mod Complex 30 Min: 1 Procedure Problem List Problem List[1] Past Medical History Past Medical History: Diagnosis Date Alcoholic cirrhosis of liver (CMS-HCC) Alcoholic hepatitis Esophageal varices (CMS-HCC) Hepatorenal syndrome (CMS-HCC) Hypertension Other hyperlipidemia 07/26/2024 Renal cell carcinoma (CMS-HCC) Thrombocytopenia (CMS-HCC) Thyroid disease Past Surgical History History reviewed. No pertinent surgical history. [1] Patient Active Problem List Diagnosis Alcoholic cirrhosis of liver without ascites (CMS-HCC) Hepatorenal syndrome (CMS-HCC) NADIYA (acute kidney injury) (CMS-HCC) Alcohol use disorder Metabolic encephalopathy Hypertension Other hyperlipidemia Thrombocytopenia (CMS-HCC) * Blossom Bourne, OT - 08/13/2024 11:40 AM EDT Occupational Therapy Initial Assessment Name: Blair Gilbert : 1985 Attending Physician: Raza Rhoades MD Admission Diagnosis: Chronic liver failure without hepatic coma (CMS-HCC) [K72.10] Cirrhosis (CMS-HCC) [K74.60] Date: 08/13/2024 Room: [place] [address] Reviewed Pertinent hospital course: Yes Hospital Course PT/OT: 39 y.o. M presents 08/12 with worsening weakness and abdominal distension. Hypotensive on arrival, txfr MICU & started on vasopressors. CXR: (-) acute abnormality. US Abd: decompensated cirrhosis, cholelithiasis. Relevant PMH : Cirrhosis 2/2 EtOH use d/b ascites, recent EtOH hepatitis (d/c from hospital 07/29), CKD, RCC, HTN, HLD Precautions: high fall risk Activity Level: Activity as tolerated Assist: Co-evaluation performed Recommendation Recommendation: No skilled OT Equipment Recommendations: None Assessment Assessment: Decreased Balance, Decreased activity tolerance, Decreased ADL status, Decreased Safe judgment during ADL, Decreased Functional Mobility, Decreased IADLs Blair is supine in bed upon OT arrival and agreeable to participate in OT evaluation. Pt demonstrates decreased functional mobility and ADL participation from reported functional baseline. Pt required increased assistance to complete all functional mobility and self-care ADLs. Pt participated in education regarding discharge recommendation, energy conservation, and importance of safe OOB mobilitythroughout acute stay. Pt limited by dizziness. At end of session, pt is supine in bed with bed alarm active and interfaced and RN not present. Pt will benefit from skilled acute OT services to increase independence and safety with ADLs and IADLs. 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[place]) Pain Pain Score: 0 - No Pain Cognition Overall Cognitive Status: Within Functional Limits Cognitive Assessment: Arousal/ Alertness;Orientation Level;Behavior;Following Commands;Safety Judgment;Insight;Communication Arousal/Alertness: Alert Orientation Level: Oriented X4 Behavior: Appropriate;Cooperative;Flat affect Following Commands: Follows all commands and directions without difficulty Safety Judgment: Good awareness of safety precautions Insight: Demonstrated intact insight into limitation and abilities to complete ADL's safely Communication: Verbalization Vision Hearing: No hearing deficits noted Baseline Vision: No visual deficits Overall Vision/ Perception: Within Functional Limits Right Upper Extremity Right UE ROM: Grossly WFL as observed during functional activities Right UE Strength: Grossly WFL (at least 3+/5) as observed during functional activities Right UE Muscle Tone: Normal Right Hand Function: Grossly WFL as observed during functional activity Left Upper Extremity Left UE ROM: Grossly WFL as observed during functional activities Left UE Strength: Grossly WFL (at least 3+/5) as observed during functional activities Left UE Muscle Tone: Normal Left UE Hand Function: Grossly WFL as observed during functional activites Neuromuscular Overall Sensation: Patient denies any numbness/ tingling in BUE's/ BLEs Functional Mobility Bed Mobility Supine to Sit: Contact guard assistance;head of bed elevated;towards the left Sit to Supine: Contact guard assistance;head of bed flat;towards the left Transfers Sit to Stand: Contact guard assistance Stand to Sit: Contact guard assistance Toilet Transfers: Contact guard assistance;grab bar Functional Mobility: Contact guard assistance Balance Sitting - Static: Contact Guard Assistance Sitting-Dynamic: Contact Guard Assistance Standing-Static: Contact Guard Assistance Standing-Dynamic: Contact Guard Assistance Gait belt used: Yes ADL Upper Body Dressing : Minimal assistance Upper Body Dressing Deficit: Thread RUE;Thread LUE;Fasteners;Pull down in back;Pull around back Location Assessed UE Dressing: Seated edge of bed Lower Body Dressing: Minimal assistance Lower Body Dressing Deficit: Don/doff L sock;Don/doff R sock Location Assessed LE Dressing: Seated edge of bed Toileting: Minimal assistance Toileting Deficit: Toileting hygiene;Clothing management down;Clothing management up Location Assessed Toileting: Toilet Position after Treatment/Safety Handoff Position after therapy session: Bed Details: RN notified;Call light/ needs within reach Alarms: Bed Alarms Status: Activated and Interfaced with call system Plan Plan Treatment Interventions: ADL retraining, Energy Conservation, IADL retraining, Patient/Family training, Therapeutic Activity, Functional transfer training, Activity Tolerance training OT Frequency: minimum 2x/week The plan of care and recommendations assesses the patient's and/or caregiver's readiness, willingness, and ability to provide or support functional mobility and ADL tasks as needed upon discharge. Goals Goals to be met in: 1 week Patient stated goal: to go home, to decrease pain during mobility and ADLs, to increase activity Patient will complete toilet transfer: Independent Patient will complete toileting: Independent Patient will complete lower body dressing: Modified Independent (AE prn) Pt Will tolerate completeing ADLs with pain less than 4/10: . Pt Will participate in upper extremity HEP to prep for ADLs: . Miscellaneous Goal #1: Pt will participate in simple meal prep assessment and upgrade [facility] Goal : =STG Collaborated with: Patient Patient/Family Education Educated patient on the role of occupational therapy, OT goals, OT plan of care, discharge recommendation, ADL training, energy conservation techniques, functional mobility training, and the importance of safety and fall prevention strategies including need for supervision/ assistance with OOB activity and use of call light. patient verbalized understanding. Pt educated on OOB in chair 3/x day, ambulating to bathroom w/ RN support as opposed to purewick/urinal, and importance of OOB mobility between therapy sessions to maintain strength and improved activity tolerance/prevent deconditioning. Pt verbalized understanding, will need multi-disciplinary supp ort. OT Time Start Time: 1122 Stop Time: 1140 Time Calculation (min): 18 min OT Charges $OT Evaluation Mod Complex 45 Min: 1 Procedure Problem List Problem List[1] Past Medical History Past Medical History: Diagnosis Date Alcoholic cirrhosis of liver (CMS-HCC) Alcoholic hepatitis Esophageal varices (CMS-HCC) Hepatorenal syndrome (CMS-HCC) Hypertension Other hyperlipidemia 07/26/2024 Renal cell carcinoma (CMS-HCC) Thrombocytopenia (CMS-HCC) Thyroid disease Past Surgical History History reviewed. No pertinent surgical history. [1] Patient Active Problem List Diagnosis Alcoholic cirrhosis of liver without ascites (CMS-HCC) Hepatorenal syndrome (CMS-HCC) NADIYA (acute kidney injury) (CMS-HCC) Alcohol use disorder Metabolic encephalopathy Hypertension Other hyperlipidemia Thrombocytopenia (CMS-HCC) * Mathieu Becker MD - 08/13/2024 8:28 AM EDT MICU ATTENDING DAILY PROGRESS NOTE I independently saw and examined this patient on 08/13/2024. The x-rays and labs were reviewed. The case was discussed in detail during multidisciplinary rounds, the events of the past 24 hours reviewed, and a plan for medical care arranged. Labs, Xrays and pertinent studies were reviewed HPI Blair Gilbert is a 39 y.o. male with a PMH significant for cirrhosis 2/2 EtOH use d/b ascites, recent EtOH hepatitis, CKD, RCC, HTN, HLD who presented to the hospital on 08/12/2024 for worsening generalized weakness and abdominal distention, worsening renal function. Patient was recently discharged from 07/29/2024 for HRS that improved with albumin and prior to that 07/08 for EtOH hepatitis at . Reportedly has a high PETH at and was denied OLT but has since entered a treatment program Interval History Admitted to MICU, started on peripheral jordyn BP 108/77 Pulse 64 Temp 97.5 ??F (36.4 ??C) (Oral) Resp 18 Ht 6' 4 (1.93 m) Wt (!) 248 lb 10.9 oz (112.8 kg) SpO2 100% BMI 30.27 kg/m?? Gen - somnolent but arousable HEENT - NCAT Neck - trachea midline CV - RRR, no edema Chest/Lungs - CTAB, non-labored Abd - soft; nt/nd Skin - juandice Neuro -somnolent but arousable Labs/Xrays reviewed. MELD 3.0: 43 at 08/13/2024 4:51 AM Calculated from: Serum Creatinine: 4.1 mg/dL (Using max of 3 mg/dL) at 08/13/2024 4:51 AM Serum Sodium: 132 mmol/L at 08/13/2024 4:51 AM Total Bilirubin: 33.4 mg/dL at 08/13/2024 4:51 AM Serum Albumin: 3.3 g/dL at 08/13/2024 4:51 AM INR(ratio): 2.6 at 08/13/2024 4:51 AM Age at listing (hypothetical): 39 years Sex: Male at 08/13/2024 4:51 AM Assessment and Plan #Acute metabolic encephalopathy: HE--->start lactulose/rifaximin #EtOH cirrhosis d/b HE, ascites: evaluate for tap, RUQ, daily MELD labs #Acute kidney injury on CKD: c/f HRS; recent baseline sCr 2.2-2.8-->nephrology/hepatology o/c, octreotide, albumin, levo for MAP >70; follow-up retroperitoneal US #Hypotension: -->cont levo, place CVC #H/o RCC #Hyponatremia-->hypervolemic/hyponatremia, will trend #NAGMA-->start isotonic bicarb gtt; c/f RTA so d/c #EtOH abuse-->monitor for withdrawal, CIWA, rally pack #Coagulopathy: cirrhosis and possible nutritional deficiency-->start Vitk x 3 day s #thrombocytopenia/anemia: transfuse for hgb <7, plts <50, <[address] berkowitz and CVC Remainder per resident/SAWYER note ICU Checklist DVT/Anticoagulation: {SQ UFH GI Ulcer Prophylaxis: PPI Nutrition: PO LDA: Patient Lines/Drains/Airways Status Active Line / PIV Line Name Placement date Placement time Site Days CVC Triple Lumen 08/13/24 Right Internal jugular 08/13/24 1340 Internal jugular less than 1 Peripheral IV 08/12/24 Anterior;Left Forearm 08/12/24 1855 Forearm less than 1 Peripheral IV 08/12/24 Anterior;Right Forearm 08/12/242021 Forearm less than 1 Invasive Lines: Continue current access Berkowitz Cath: Present Bowel Integrity: PEG/Laxatives ordered Rectal Tube: None Code Status: Full Code Next of kin / POA update: To be updated by house staff Selby Consent: will review PT/OT: ordered Med list reviewed: reviewed I spent a total of 40 minutes of critical care time caring for this patient with shock, decompensated cirrhosis, acute metabolic encephalopathy acute kidney injury, including direct patient contact, management of life support systems review of data (i.e.: imaging and lab), discussion with team members, and this time excludes time spent on procedures Critical care was necessary to treat and prevent life-threatening deterioration from these conditions and requires high complexity decision making for assessment and support This note was completely edited, written and reviewed by me and consists of information cut and pasted from the my most recent visit, my smart phrases and other Epic tools. I have personally reviewedall aspects of this note to at least include reviewing this patient's chart and problem list, updating the history, physical exam, lab and procedure results, and assessment and plan as detailed aboveand below. As such this visit note reflects my current evaluation and management for this patient. MATHIEU BECKER MD, DO 2:27 PM, 08/13/2024 * Mak Armenta, MITER GRINDER OPERATOR - 08/13/2024 7:20 AM EDT Department of Internal Medicine MICU Progress Note Blair Gilbert [id number] 08/13/2024 1:20 PM [id number] LOS: 1 days CODE Status: Full Code Interval History Blair Gilbert is a 39 y.o. male on hospital day 1. male has a past medical history of cirrhosis 2/2 EtOH use d/b ascites, recent EtOH hepatitis, CKD, RCC, HTN, HLD who presented to the hospital on 08/12/2024 for worsening generalized weakness and abdominal distention over the past week as well as worsening creatinine on recent blood draw. He was admitted to the MICU 4/2 for hypotension requiring Levophed. Significant Events Over The Past 24 Hours: - Admitted to the MICU 4/2 for hypotension requiring Levophed. - Requiring Levophed 8mcg/min DAILY PLAN - Wean Levophed for MAP >70 - Continue albumin - Continue Octreotide - Consult Renal - Consult Liver - Replete K, one K replete start Isotonic Bicarb gtt - Obtain Liver ultrasound with doppler - Obtain Renal ultrasound - Assess for pocket for paracentesis - Place berkowitz - Start Vitamin K 10mg x 3 days Planned Labs Today: - Renal, Mg 1200 - AM CBC, Renal, Mg, Hepatic, PT/INR ROS Patient seen lying in bed, in no acute distress. Drowsy, oriented x 4. Follows all commands. Assessment & Plan Blair Gilbert is a 39 y.o. male on hospital day 1. The principal reason for today's follow up visit is Hepatorenal syndrome (CMS-HCC). Principal Problem: Hepatorenal syndrome (CMS-HCC) Active Problems: Alcoholic cirrhosis of liver without ascites (CMS-HCC) NADIYA (acute kidney injury) (CMS-HCC) Alcohol use disorder Metabolic encephalopathy Neurology AD[facility] Pulmonology AD[facility] Cardiovascular #Hypotension In setting of ESLD. Normal lactate, no s/s sepsis. 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 Prior chart note that [facility] has been explored as well as it does not require pt sobriety (it involves a rehab program after transplant). 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 - Hold Coreg given low BP - Continue lactulose (titrate to 2-3 BM daily), rifaximin 550 mg BID - Continue thiamine, folate supp - Limit tylenol use to <2 g daily - 3 months of chemical dependency treatment - Wean Levophed for MAP >70 - Continue albumin - Continue Octreotide - Hold midodrine - Consult Renal - Consult Liver - Replete K, one K replete start Isotonic Bicarb gtt - Obtain Liver ultrasound with doppler - Obtain Renal ultrasound - Assess for pocket for paracentesis - Liver consult - Renal Consult Renal #NADIYA on CKD #C/f HRS #Hx RCC #Hyperphos Patient found to have Cr 4.84 in ED after presenting for generalized weakness. Cr [facility].28 [facility] and 1.54 at discharge on 07/23 from . 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 NADIYA likely 2/2 HRS given end-stage liver disease + progression of CKD due to recurrent insults/NADIYA.Improvement with albumin challenge last admission No nephrotoxins - Albumin challenge + octreotide + levophed - Consult Renal - Consult Hepatology - daily RFP - avoid nephrotoxins #Hyponatremia Na 129 in setting of ESLD/hypervolemic hyponatremia and NADIYA. Not on diuretics #Hypokalemia Gentle repletion with 20 Kcl #NAGMA Likely 2/2 severe NADIYA though reportedly Topamax can cause metabolic acidosis, though metabolic acidosis at this time more likely related to renal dysfunction as above. Lactate WNL Acid/Base Recent Labs 08/12/24 1829 08/12/24 2332 08/13/24 0451 LACTATE 1.4 1.6 0.5 Infectious Diseases Antibiotics: None Infectious Workup: BCx (08/12): NGTD Endocrine ADDY Hematology/Oncology #Thrombocytopenia No signs of acute bleed. In setting of ESLD. No s/s bleeding - CTM #Elevated INR In setting of ESLD. No s/s bleeding. - Start Vitamin K 10mg x 3 days #Normocytic Anemia Hgb 10.9. No s/s bleeding. Psychiatry #EtOH JAIR On last admission was evaluated by Addiction Medicine service. He was started on Topamax at that time. Home Medications: Topamax ramp 25 mg daily with increase daily dose gradually (eg, in 25 - 50 mg increments weekly) to a maximum of 300 mg/day. Doses >50 mg/day should be administered in 2 divideddose. Goal 200-300mg for AUD - Continue Lactulose - Discontinue Topamax as could be causing type II RTA and contributing for acidosis - recommend baseline and intermittent monitoring of serum bicarbonate at least twice a year, PRN ifpatient develops symptoms of metabolic acidosis, or consider more frequent monitoring for patients with additional risk factors of metabolic acidosis FEN/GI Electrolyte: replete prn Diet Nutrition: Diet/Nutrition Orders Diet Regular(7) Frequency: Effective Now Number of Occurrences: Until Specified Order Questions: Suicide/Behavior Risk Modification? No DVT/Anticoagulation: {SQ UFH GI Ulcer Prophylaxis: PPI Nutrition: PO LDA: Patient Lines/Drains/Airways Status Active Line / PIV Line Name Placement date Placement time Site Days Peripheral IV 08/12/24 Anterior;Left Forearm 08/12/241854 Forearm less than 1 Peripheral IV 08/12/24 Anterior;Right Forearm 08/12/242021 Forearm less than 1 Invasive Lines: PIVs only Berkowitz Cath: Present Bowel Integrity: PEG/Laxatives ordered Rectal Tube: None Code Status: Full Code Next of kin / POA update: Pt's and sister present for rounds 08/13. Disposition: MICU Code Status: Full Code Signed: Mak Armenta CNP 08/13/2024, 1:20 PM MICU BALANCE BRIDGE INSPECTOR This note was copied forward from the note written by Dr. Philip on 08/13/2024. I have reviewed andupdated the history, physical exam, data, assessment and plan of the note so that it reflects the evaluation and management of the patient on 08/13/2024. Access/Lines/Tubes/Drains #Central: #Arterial Lines: #Peripheral: Peripheral IV 08/12/24 Anterior;Left Forearm (Active) Site Assessment Clean;Dry;Intact 08/13/24 0404 Line Status Infusing 08/13/24 0404 Dressing Status Dry;Intact 08/13/24 0404 Peripheral IV 08/12/24 Anterior;Right Forearm (Active) Site Assessment Clean;Dry;Intact 08/13/24 0404 Line Status Infusing 08/13/24 0404 Dressing Status Dry;Intact 08/13/24 0404 #Tubes/Drains/HD Access: Inpatient Medications Inpatient Meds: Scheduled: [Held by provider] carvediloL 12.5 mg Oral BID WC folic acid 1 mg Oral Daily 0900 heparin 5,000 Units Subcutaneous 3 times per day lactulose 20 g Oral TID levothyroxine 75 mcg Oral QAM AC melatonin 3 mg Oral DAILY 1800 mupirocin 1 g Topical BID pantoprazole 40 mg Oral QAM AC phytonadione (vitamin K1) (AQUA-MEPHYTON) 10 mg in sodium chloride 0.9 % 50 mL IVPB 10 mg Intravenous Daily 0900 rifAXIMin 550 mg Oral BID thiamine HCl 100 mg Oral Daily 0900 Continuous: octreotide (SANDOSTATIN) 500 mcg/mL 2 mcg/mL in dextrose 5% in water (D5W) 250 mL infusion 50 mcg/hr (08/13/24 0947) PERIPHERAL norepinephrine 12 mcg/min (08/13/24 1014) PRN:acetaminophen, dextrose 10% in water OR dextrose 10% in water, glucose Mentation CAM: Overall CAM-ICU : No Delirium RASS: Barth Agitation Sedation Scale: -1 I/Os Intake/Output Summary (Last 24 hours) at 08/13/2024 1320 Last data filed at 08/13/2024 0659 Gross per 24 hour Intake 311.09 ml Output 450 ml Net -138.91 ml I/O last 3 completed shifts: In: 311.1 [I.V.:178.3; IV Piggyback:132.8] Out: 450 [Urine:450] Wt Readings from Last 3 Encounters: 08/13/24 (!) 248 lb 10.9 oz (112.8 kg) 07/28/24 (!) 245 lb (111.1 kg) Vent Settings Ventilator Settings: ABG: Invalid input(s): CO2ART Lactate: Recent Labs 08/12/24 1829 08/12/24 2332 08/13/24 0451 LACTATE 1.4 1.6 0.5 Vital Signs Temp: [97.5 ??F (36.4 ??C)-98 ??F (36.7 ??C)] 97.5 ??F (36.4 ??C) Heart Rate: [56-67] 64 Resp: [9-28] 18 BP: (69-113)/(34-81) 108/77 BP 108/77 Pulse 64 Temp 97.5 ??F (36.4 ??C) (Oral) Resp 18 Ht 6' 4 (1.93 m) Wt (!) 248 lb 10.9 oz (112.8 kg) SpO2 100% BMI 30.27 kg/m?? Temp (24hrs), Av.7 ??F (36.5 ??C), Min:97.5 ??F (36.4 ??C), Max:98 ??F (36.7 ??C) Patient Vitals for the past 4 hrs: BP Temp Temp src Pulse Resp SpO2 04/02/25 1200 108/77 97.5 ??F (36.4 ??C) Oral 64 18 100 % BP Min: 69/41 Max: 113/66 No data recorded Temp Av.7 ??F (36.5 ??C) Min: 97.5 ??F (36.4 ??C) Max: 98 ??F (36.7 ??C) Pulse Av.4 Min: 56 Max: 67 Resp Av.3 Min: 9 Max: 28 SpO2 Av.9 % Min: 98 % Max: 100 % BP Min: 69/41 Max: 113/66 MAP (mmHg) Av.9 Min: 48 Max: 89 MAP (mmHg) Av.9 Min: 48 Max: 89 Physical Exam General - Seen laying in bed in no acute distress. Jaundiced HEENT - PERRL, conjugate gaze. No evidence of cranial or facial trauma. Sclera yellow. Neck - No palpable adenopathy CV - RRR without murmur or rub Chest/Lungs - CTA bilaterally. Abd - soft without tenderness or guarding -voids spontaneously Ext - no deformity or edema. Neuro - Drowsy, oriented x 4. Mood and affect appropriate. CN's 2-12 grossly intact. No gross motoror sensory deficit. Labs Renal Recent Labs 08/12/24182808/12/24225108/13/24 0008 08/13/24 0451 NA 131* 129* -- 132* K 3.0* 3.0* -- 2.7* CL 105 106 -- 105 CO2 12* 10* -- 12* BUN 69* 62* -- 64* CREATININE 4.84* 4.52* -- 4.10* CALCIUM 9.0 7.8* -- 8.5* MG -- -- 2.5 2.4 PHOS -- 5.1* 5.3* 5.2* CBC Recent Labs 08/12/24182808/13/24 0008 08/13/24 0451 HGB 12.5* 10.9* 10.6* HCT 35.8* 30.6* 28.9* PLT 54* 51* 36* WBC 9.0 7.4 7.3 Liver Recent Labs 08/12/241828 08/12/24 2252 08/13/24 0008 08/13/24 0451 AST 63* -- 58* 37 ALT 42 -- 32 27 ALKPHOS 99 -- 77 71 ALBUMIN 3.1* < > 2.9* 3.3* 3.3* BILITOT 37.9* -- 34.2* 33.4* BILIDIRECT 23.2* -- 18.87* 21.43* INR 2.0* -- 2.3* 2.6* < > = values in this interval not displayed. Diagnostic Studies Reviewed in EMR. Cosigned by Mathieu Becker MD at 08/13/2024 6:04 PM EDT Associated attestation - Mathieu Becker MD - 08/13/2024 6:04 PM EDT I independently saw and evaluated the patient, and discussed with the resident/fellow/SAWYER. I agree with the findings and plan as documented in their note. Please see my note for additions/addendums. Mathieu Becker DO, MSc Pulmonary and Critical Care Attending * Raza Rhoades MD - 08/13/2024 12:07 AM EDT ATTENDING PHYSICIAN CRITICAL CARE NOTE: This patient is critically ill. I spent 36 minutes directly engaged in the delivery of critical care to this patient, which was directed towards the patient's critical illness as listed below under Dx. This included direct patient contact, management of life support systems review of data (i.e.: graciela ging and lab), discussion with team members, and this time excludes time spent on procedures. I sawand examined the patient on rounds with the Medical Intensive Care Unit team. I have reviewed all of the relevant labs, imaging and studies pertaining to this patient's care from the last 24 hours. Iagree with the findings, assessment and plan as presented by the resident with my additions, changes and summary as below. Dx: -Decompensated Alcohol Cirrhosis with Hypotension and concern for Hepatorenal Syndrome with Acute Kidney Injury on CKD -Hypokalemia -Hypothyroidism PLAN: -Hemodynamic Management: midodrine titrated to 5mg orally q 8 hours, octreotide gtt and albumin challenge for IVFs for 3 days of albumin to confirm HRS. Stopped coreg for now -replacing potassium for hypokalemia -renal consult in morning -lactulose for chronic hepatic encephalopathy as well as rifaximin -home topamax -Synthroid -rally pack given -Dextrose as needed -Abd CT with hepatic dopplers neg for PVT 2 weeks ago ICU Checklist DVT PPx: Heparin sc prophy, reconsider if plt's drop GI PPx: PPI - Protonix F/E/N: oral Code: Full Lines/tubes: Periph IV Sedation/Analgesia: none Disposition: critically ill with decompensated cirrhosis, admitted to MICU. updated by phone of move to MICU and RN answered all questions via phone and update completed. Raza Rhoades MD * Eleazar Pitt MD - 08/12/2024 7:36 PM EDT ED Attending Attestation Note Date of service: 08/12/2024 This patient was seen by the resident physician. I have seen and examined the patient, agree with the workup, evaluation, management and diagnosis. The care plan has been discussed and I concur. I have reviewed the ECG and concur with the resident's interpretation. My assessment reveals a 39 y.o. male who presents to the emergency room today due to concern for fatigue feeling unwell. Has a history of cirrhosis on exam he appears jaundiced his abdomen is soft mildly distended no tenderness to palpation mucous membranes appear dry he is afebrile mildly hypotensive with otherwise unremarkable vital signs. Has equal pulses in all extremities which are warm and well-perfused.. documented in this encounter H&P Notes * Terra Longoriaante, DO - 08/13/2024 1:24 AM EDT Department of Internal Medicine MICU History and Physical Patient: Blair Gilbert Room: [place] [address] Chief Complaint: hypotension, abdominal distention, elevated Cr HPI Blair Gilbert is a 39 y.o. male with a PMH significant for cirrhosis 2/2 EtOH use d/b ascites, recent EtOH hepatitis, CKD, RCC, HTN, HLD who presented to the hospital on 08/12/2024 for worsening generalized weakness and abdominal distention over the past week as well as worsening creatinine on recent blood draw. Patient was recently discharged from 07/29/2024 for HRS that improved with albumin and prior to that 07/08 for EtOH hepatitis at . Patient was admitted earlier this month for an NADIYA that was deemed to be likely primarily prerenal as well as having some component of hepatorenal syndrome. He was reportedly seen in clinic where he was noted to be relatively hypotensive and told by his provider to take a dose of midodrine prior tocoming to the emergency department. Patient's creatinine last admission had wallace of 2.22, but had a lab draw today that demonstrated ahigher creatinine. Patient had reported not ever having ascites but over the past week has noted distention in his abdomen and says that his breathing has been increasingly labored. Denies recent fever, cough, sore throat. No N/V/D. No abdominal pain. In the ED, he was notably hypotensive to 80s/40s with one isolated value of 70s/30s though with persistently appropriate mentation. He was afebrile, without tachycardia, and saturating well on RA. Labs noted hyponatremia to 131, K 3, HCO3 12, Cr 4.84, Lft with mild AST elevation to 63 but normal lactate. WBC with Hgb 12.5. INR 2.0 . He was given 1L IVF then called for admission. Due to episode ofhypotension of 70s/30s, he was transferred to the MICU. ROS As above Past Medical, Surgical, & Social History Past Medical History: Diagnosis Date Alcoholic cirrhosis of liver (CMS-HCC) Alcoholic hepatitis Esophageal varices (CMS-HCC) Hepatorenal syndrome (CMS-HCC) Hypertension Other hyperlipidemia 07/26/2024 Renal cell carcinoma (CMS-HCC) Thrombocytopenia ([facility]) Thyroid disease History reviewed. No pertinent surgical history. History reviewed. No pertinent family history. - FHx reviewed, non-contributory other than listed above. Social History Socioeconomic History Marital status: Spouse name: Not on file Number of children: Not on file Years of education: Not on file Highest education level: Not on file Occupational History Not on file Tobacco Use Smoking status: Former Types: Cigarettes Smokeless tobacco: Current Substance and Sexual Activity Alcohol use: Yes Comment: History of alcohol abuse, reports no use in 3 week- typically endorses use as 4 glasses ofwine a days Drug use: Yes Types: Marijuana Sexual activity: Not on file Other Topics Concern Not on file Social History Narrative Not on file Social Drivers of Health Financial Resource Strain: Low Risk (07/09/2024) Received from [facility] Overall Financial Resource Strain (CARDIA) Difficulty of Paying Living Expenses: Not hard at all Food Insecurity: No Food Insecurity (08/12/2024) Hunger Vital Sign Worried About Running Out of Food in the Last Year: Never true Ran Out of Food in the Last Year: Never true Transportation Needs: No Transportation Needs (08/12/2024) PRAPARE - Transportation Lack of Transportation (Medical): No Lack of Transportation (Non-Medical): No Physical Activity: Unknown (07/14/2024) Received from [facility] Exercise Vital Sign Days of Exercise per Week: Patient unable to answer Minutes of Exercise per Session: Not on file Stress: Patient Unable To Answer (07/14/2024) Received from [facility] [employer] [place] [employer] - Occupational Stress Questionnaire Feeling of Stress : Patient unable to answer Social Connections: Patient Unable To Answer (07/14/2024) Received from [facility] Social Connection and Isolation Panel [NHANES] Frequency of Communication with Friends and Family: Patient unable to answer Frequency of Social Gatherings with Friends and Family: Patient unable to answer Attends Yazidism Services: Patient unable to answer Active Member of Clubs or Organizations: Patient unable to answer Attends Club or Organization Meetings: Patient unable to answer Marital Status: Patient unable to answer Intimate Partner Violence: Not At Risk (08/12/2024) Humiliation, Afraid, Rape, and Kick questionnaire Fear of Current or Ex-Partner: No Emotionally Abused: No Physically Abused: No Sexually Abused: No Housing Stability: Low Risk (08/12/2024) Housing Stability Vital Sign Unable to Pay for Housing in the Last Year: No Number of Times Moved in the Last Year: 0 Homeless in the Last Year: No Allergies & Home Medications Allergies: Allergies[1] Home Meds: Home Medications Medication Sig Taking? Last Dose carvediloL (COREG) 12.5 MG tablet Take 1 tablet (12.5 mg total) by mouth 2 times a day with meals. Yes 08/11/2024 Bedtime folic acid (FOLVITE) 1 MG tablet Take 1 tablet (1 mg total) by mouth daily. Yes 08/12/2024 Morning lactulose (CHRONULAC) 10 gram/15 mL solution Take 30 mLs (20 g total) by mouth 2 times a day. Yes 08/12/2024 Morning levothyroxine (SYNTHROID) 75 MCG tablet Take 1 tablet (75 mcg total) by mouth every morning before breakfast. Yes 08/12/2024 Morning NEXLIZET 180-10 mg Tab Take 1 tablet by mouth daily. Yes 08/12/2024 pantoprazole (PROTONIX) 40 MG tablet Take 1 tablet (40 mg total) by mouth every morning before breakfast. Yes 08/12/2024 Morning rifAXIMin (XIFAXAN) 550 mg Tab tablet Take 1 tablet (550 mg total) by mouth 2 times a day. Yes 08/12/2024 Morning thiamine HCl (VITAMIN B-1) 100 MG tablet Take 1 tablet (100 mg total) by mouth daily. Yes 08/11/2024Morning topiramate (TOPAMAX) 25 MG tablet Take 1 tablet (25 mg total) by mouth daily for 7 days, THEN 2 tablets (50 mg total) daily for 7 days, THEN 3 tablets (75 mg total) daily for 7 days, THEN 4 tablets (100 mg total) daily for 7 days. Increase dosage weekly by 25 mg as tolerated, please follow-up with your PCP with plan to increase dosage up to 200 mg. Yes 08/12/2024 Morning traMADoL (ULTRAM) 50 mg tablet Take 1 tablet (50 mg total) by mouth every 12 hours as needed for Pain (Pain). Yes 08/12/2024 Morning lidocaine (LIDODERM) 5 % Place 1 patch onto the skin daily. Apply patch for 12 hours and then remove patch and leave off for 12 hours. Unknown nicotine (NICODERM CQ) 21 mg/[address] 1 patch onto the skin daily. Unknown Physical Exam Temp: [97.6 ??F (36.4 ??C)-97.9 ??F (36.6 ??C)] 97.9 ??F (36.6 ??C) Heart Rate: [56-64] 62 Resp: [12-28] 17 BP: (76-103)/(34-67) 103/64 GENERAL: Jaundiced, cooperative. No acute distress. EYES: EOM intact. + scleral icterus. ENT: Trachea midline. No obvious masses or deformities. HEART: Regular rate and rhythm. S1, S2 intact. No murmurs, rubs, gallops. + 1 pitting peripheral edema. LUNGS: Clear to auscultation bilaterally. Normal work of breathing. ABDOMEN: Soft, non-tender, +mild-moderately distended. No rebound or guarding. SKIN: No rashes. No ecchymoses. NEURO: Oriented to person, place, and time. Speech normal. No facial asymmetry. PSYCH: Normal mood. Normal behavior. Intake/Output Summary (Last 24 hours) at 08/13/2024 0124 Last data filed at 08/13/2024 0025 Gross per 24 hour Intake 132.81 ml Output 200 ml Net -67.19 ml Admit Wt: Weight: (!) 248 lb 10.9 oz (112.8 kg) Diagnostic Data All laboratory results were reviewed. ECG: pending Imaging: reviewed Assessment & Plan Blair Gilbert is a 39 y.o. male with Hepatorenal syndrome (CMS-HCC). Medical problems being addressed in this encounter include the following: Neurology, Pain, Sedation: - No acute issues. Pulmonary: - No acute issues. Will encourage incentive spirometry use. Cardiovascular: - No acute issues. Will continue to monitor on telemetry. #Hypotension In setting of ESLD. Normal lactate, no s/s sepsis. - attempt diagnostic para - management of HRS/albumin challenge as below. Initial responsive strong with albumin Gastrointestinal: - Enteric access via oral route. #End-Stage Liver Disease/Cirrhosis 2/2 EtOH d/b HE, EV Most recent PETH was >1999 and previously declined at for OLT. Prior chart note that [facility] has been explored as well as it does not require pt sobriety (it involves a rehab program after transplant). 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 - Liver consult for HRS recs + terli consideration - Hold Coreg given low BP - Continue lactulose (titrate to 2-3 BM daily), rifaximin 550 mg BID - Continue thiamine, folate supp - Limit tylenol use to <2 g daily - 3 months of chemical dependency treatment - attempt diagnostic para if pocket Renal (Electrolytes, Acid/Base): #NADIYA on CKD #C/f HRS #Hx RCC #Hyperphos Patient found to have Cr 4.84 in ED after presenting for generalized weakness. Cr 2.28 on [facility]from [facility] and 1.54 at discharge on 07/23 from . 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 NADIYA likely 2/2 HRS given end-stage liver disease + progression of CKD due to recurrent insults/NADIYA.Improvement with albumin challenge last admission No nephrotoxins - Albumin challenge + octreotide + levophed (previously on midodrine but will trial levo since in ICU) - Nephrology + Hepatology consults in AM for consideration of Terli - urine lytes - daily RFP - avoid nephrotoxins #Hyponatremia Na 129 in setting of ESLD/hypervolemic hyponatremia and NADIYA. Not on diuretics #Hypokalemia Gentle repletion with 20 Kcl #NAGMA Likely 2/2 severe NADIYA though reportedly Topamax can cause metabolic acidosis, though metabolic acidosis at this time more likely related to renal dysfunction as above. Lactate WNL Genitourinary: - No acute issues. Infectious Disease: - No acute issues. Endocrine: - No acute issues. Goal BG <180. Hematology/Oncology: - No acute issues. #Thrombocytopenia No signs of acute bleed. In setting of ESLD. No s/s bleeding - CTM #Elevated INR In setting of ESLD. No s/s bleeding. - could consider vit K challenge #Normocytic Anemia Hgb 10.9. No s/s bleeding. Rheumatology: - No acute issues. Musculoskeletal: - No acute issues. Psychiatry: - No acute issues. #EtOH JAIR On last admission was evaluated by Addiction Medicine service. He was started on Topamax at that time. Home Medications: Topamax ramp 25 mg daily with increase daily dose gradually (eg, in 25 - 50 mg increments weekly) to a maximum of 300 mg/day. Doses >50 mg/day should be administered in 2 divideddose. Goal 200-300mg for AUD - Continue Topamax ramp - Continue Lactulose as topiramate could cause hyperammonemia - Topamax can cause metabolic acidosis, though metabolic acidosis at this time more likely related to renal dysfunction as above. - recommend baseline and intermittent monitoring of serum bicarbonate at least twice a year, PRN ifpatient develops symptoms of metabolic acidosis, or consider more frequent monitoring for patients with additional risk factors of metabolic acidosis F/E/N: - Replete electrolytes PRN. - CONCR[employer] FINISHING SUPERVISOR eval: not consulted. - Nutrition eval: consulted. Diet/Nutrition Orders Diet Regular(7) Frequency: Effective Now Number of Occurrences: Until Specified Order Questions: Suicide/Behavior Risk Modification? No Code Status: Full Access: reviewed. Patient Lines/Drains/Airways Status Active Line / PIV Line Name Placement date Placement time Site Days Peripheral IV 08/12/24 Anterior;Left Forearm 08/12/241854 Forearm less than 1 Peripheral IV 08/12/24 Anterior;Right Forearm 08/12/242021 Forearm less than 1 Berkowitz: none. DVT PPx: SQH GI PPx: PPI PT/OT: consulted. PT Recs: OT Recs: [employer]ISHING SUPERVISOR Recs: Family discussion: ongoing. Disposition: remain in MICU. Terra Philip DO Internal Medicine PGY-3 08/13/2024 1:42 AM [1] Allergies Allergen Reactions Adhesive Itching and Rash Tegaderm adhesive on Ivs, pt states its tolerable Duloxetine Other (See Comments) Became Manic Cosigned by Raza Rhoades MD at 08/13/2024 6:22 AM EDT Associated attestation - Raza Rhoades MD - 08/13/2024 6:22 AM EDT ATTENDING NOTE I have seen and examined the patient with the resident team. I agree with the findings as outlined in this note and presented on rounds and please see my separate note for my further findings, attestation, comments, additions and/or edits. Raza Rhoades MD * Eileen Schroeder MD, PhD - 08/12/2024 9:58 PM EDT Department of Internal Medicine History & Physical Patient: Blair Gilbert CSN: [id number] Chief Complaint Weakness and Abdominal Distension History of Present Illness Blair Gilbert is a 39 y.o. male with a has a past medical history of Alcoholic cirrhosis of liver (CMS-HCC), Alcoholic hepatitis, Esophageal varices (CMS-HCC), Hepatorenal syndrome (CMS-HCC), Hypertension, Other hyperlipidemia (07/26/2024), Renal cell carcinoma (CMS-HCC), Thrombocytopenia (CMS-HCC),and Thyroid disease. , presenting to the hospital with worsen weakness and abdominal distension. Patient was recently discharged from 07/29/2024 for hepatorenal syndrome. He was found to be Hypotensive in the ED. He was seen in clinic earlier who also noted his low BP, and advised that he take 5mg of Midodrine. Pt reports no past history of ascites, but report increased distention in his abdomen. Pt is lethargic but follows commands Skin is jaundiced. Pt denies Abdominal pain and MILLER at this current time. Review of Systems Negative except as mentioned above Past Medical History Past Medical History: Diagnosis Date Alcoholic cirrhosis of liver (CMS-HCC) Alcoholic hepatitis Esophageal varices (CMS-HCC) Hepatorenal syndrome (CMS-HCC) Hypertension Other hyperlipidemia 07/26/2024 Renal cell carcinoma (CMS-HCC) Thrombocytopenia (CMS-HCC) Thyroid disease Past Surgical History History reviewed. No pertinent surgical history. Family History History reviewed. No pertinent family history. Social History Social History Socioeconomic History Marital status: Spouse name: Not on file Number of children: Not on file Years of education: Not on file Highest education level: Not on file Occupational History Not on file Tobacco Use Smoking status: Former Types: Cigarettes Smokeless tobacco: Current Substance and Sexual Activity Alcohol use: Yes Comment: History of alcohol abuse, reports no use in 3 week- typically endorses use as 4 glasses ofwine a days Drug use: Yes Types: Marijuana Sexual activity: Not on file Other Topics Concern Not on file Social History Narrative Not on file Social Drivers of Health Financial Resource Strain: Low Risk (07/09/2024) Received from [facility] Overall Financial Resource Strain (CARDIA) Difficulty of Paying Living Expenses: Not hard at all Food Insecurity: No Food Insecurity (07/28/2024) Hunger Vital Sign Worried About Running Out of Food in the Last Year: Never true Ran Out of Food in the Last Year: Never true Transportation Needs: No Transportation Needs (07/28/2024) PRAPARE - Transportation Lack of Transportation (Medical): No Lack of Transportation (Non-Medical): No Physical Activity: Unknown (07/14/2024) Received from [facility] Exercise Vital Sign Days of Exercise per Week: Patient unable to answer Minutes of Exercise per Session: Not on file Stress: Patient Unable To Answer (07/14/2024) Received from [facility] [employer] [place] [place] [employer] - Occupational Stress Questionnaire Feeling of Stress : Patient unable to answer Social Connections: Patient Unable To Answer (07/14/2024) Received from [facility] Social Connection and Isolation Panel [NHANES] Frequency of Communication with Friends and Family: Patient unable to answer Frequency of Social Gatherings with Friends and Family: Patient unable to answer Attends Yazidism Services: Patient unable to answer Active Member of Clubs or Organizations: Patient unable to answer Attends Club or Organization Meetings: Patient unable to answer Marital Status: Patient unable to answer Intimate Partner Violence: Not At Risk (07/28/2024) Humiliation, Afraid, Rape, and Kick questionnaire Fear of Current or Ex-Partner: No Emotionally Abused: No Physically Abused: No Sexually Abused: No Housing Stability: Low Risk (07/28/2024) Housing Stability Vital Sign Unable to Pay for Housing in the Last Year: No Number of Times Moved in the Last Year: 0 Homeless in the Last Year: No Medications Home Meds: Home Medications Medication Sig Taking? Last Dose carvediloL (COREG) 12.5 MG tablet Take 1 tablet (12.5 mg total) by mouth 2 times a day with meals. Yes 08/11/2024 Bedtime folic acid (FOLVITE) 1 MG tablet Take 1 tablet (1 mg total) by mouth daily. Yes 08/12/2024 Morning lactulose (CHRONULAC) 10 gram/15 mL solution Take 30 mLs (20 g total) by mouth 2 times a day. Yes 08/12/2024 Morning levothyroxine (SYNTHROID) 75 MCG tablet Take 1 tablet (75 mcg total) by mouth every morning before breakfast. Yes 08/12/2024 Morning NEXLIZET 180-10 mg Tab Take 1 tablet by mouth daily. Yes 08/12/2024 pantoprazole (PROTONIX) 40 MG tablet Take 1 tablet (40 mg total) by mouth every morning before breakfast. Yes 08/12/2024 Morning rifAXIMin (XIFAXAN) 550 mg Tab tablet Take 1 tablet (550 mg total) by mouth 2 times a day. Yes 08/12/2024 Morning thiamine HCl (VITAMIN B-1) 100 MG tablet Take 1 tablet (100 mg total) by mouth daily. Yes 08/11/2024Morning topiramate (TOPAMAX) 25 MG tablet Take 1 tablet (25 mg total) by mouth daily for 7 days, THEN 2 tablets (50 mg total) daily for 7 days, THEN 3 tablets (75 mg total) daily for 7 days, THEN 4 tablets (100 mg total) daily for 7 days. Increase dosage weekly by 25 mg as tolerated, please follow-up with your PCP with plan to increase dosage up to 200 mg. Yes 08/12/2024 Morning traMADoL (ULTRAM) 50 mg tablet Take 1 tablet (50 mg total) by mouth every 12 hours as needed for Pain (Pain). Yes 08/12/2024 Morning lidocaine (LIDODERM) 5 % Place 1 patch onto the skin daily. Apply patch for 12 hours and then remove patch and leave off for 12 hours. Unknown nicotine (NICODERM CQ) 21 mg/[address] 1 patch onto the skin daily. Unknown Inpatient Meds: Scheduled: albumin human 25% (12.5 g/ 50 mL) 12.5 g Intravenous Q30 Min [START ON 08/13/2024] albumin human 25% (12.5 g/ 50 mL) 12.5 g Intravenous Q30 Min [START ON 08/13/2024] carvediloL 12.5 mg Oral BID WC [START ON 08/13/2024] folic acid 1 mg Oral Daily 0900 heparin 5,000 Units Subcutaneous 3 times per day lactulose 20 g Oral TID [START ON 08/13/2024] levothyroxine 75 mcg Oral QAM AC melatonin 3 mg Oral DAILY 1800 [START ON 08/13/2024] pantoprazole 40 mg Oral QAM AC rifAXIMin 550 mg Oral BID [START ON 08/13/2024] thiamine HCl 100 mg Oral Daily 0900 [START ON 08/13/2024] topiramate 50 mg Oral Daily 0900 Followed by [START ON 08/14/2024] topiramate 75 mg Oral Daily 0900 Followed by [START ON 08/21/2024] topiramate 100 mg Oral Daily 0900 Continuous: PRN:acetaminophen, dextrose 10% in water OR dextrose 10% in water, glucose Vital Signs Temp: [97.6 ??F (36.4 ??C)] 97.6 ??F (36.4 ??C) Heart Rate: [56-64] 58 Resp: [12-19] 13 BP: (76-100)/(34-67) 76/34 Intake/Output Summary (Last 24 hours) at 08/12/2024 2334 Last data filed at 08/12/2024 2224 Gross per 24 hour Intake -- Output 200 ml Net -200 ml Physical Exam Physical Exam Constitutional: Appearance: He is ill-appearing. HENT: Head: Normocephalic and atraumatic. Eyes: General: Scleral icterus present. Cardiovascular: Rate and Rhythm: Normal rate and regular rhythm. Heart sounds: Normal heart sounds. Pulmonary: Effort: Pulmonary effort is normal. Abdominal: General: There is distension. Palpations: Abdomen is soft. Musculoskeletal: Right lower leg: Edema present. Left lower leg: No edema. Comments: 1+ edema in LE Skin: Coloration: Skin is jaundiced. Neurological: General: No focal deficit present. Mental Status: He is alert and oriented to person, place, and time. Cranial Nerves: No cranial nerve deficit. Comments: A&Ox4 Psychiatric: Mood and Affect: Mood normal. Behavior: Behavior normal. Laboratory Data CBC 08/12/2024 \ 12.5 / 9.0 \ / 54 / \ / 35.8 \ Differential 08/12/2024 N 84.5 L 8.1 M 5.2 E 1.9 B 0.3 Renal 08/12/2024 131 105 69 / ___ __ / 140 \ 3.0 12 4.84 \ Ca 9.0 (08/12/2024) Mg 2.2 (07/28/2024) Phos 2.3 (07/29/2024) Lipids No results found for: CHOLTOT , TRIG , HDL , LDL LFTs 08/12/2024 \ 37.9 / \ 23.2 / 63 \ / 42 / \ / 99 \ PT/INR/PTT - 08/12/2024 PT 23.4 INR 2.0 PTT No results found for requested labs within last 3600 days. Lab 08/12/24 1829 INR 2.0* PROTHROMBIN TIME 23.4* Invalid input(s): WBCCAST , GRANCAST No results found for: NTPROBNP No results found for: TSH , T3FREE , FREET4 Diagnostic Studies X-ray Portable Chest Final Result IMPRESSION: Mild left basilar atelectasis or scarring. Otherwise clear lungs. Report Verified by: Josr Francis DO at 08/12/2024 7:11 PM EDT Assessment & Plan Blair Gilbert is a 39 y.o. male being admitted to the hospital for concern for . Medical problems being addressed in this encounter include the following: Principal Problem: Hepatorenal syndrome (CMS-HCC) Active Problems: Alcoholic cirrhosis of liver without ascites (CMS-HCC) NADIYA (acute kidney injury) (CMS-HCC) Alcohol use disorder Metabolic encephalopathy #Hypotension #Hepatorenal Syndrome vs Acute Kidney Injury Base line Cr of 1.3, reported 4.84 today. Renal history includes RCC. Pt presentation with hypotension raise concerns that this could be HRS, which would also lead to increased Cr. -IV Albumin challenge -Daily Renal Panel -FeNA and Urine Lytes -Liver Consult -May need elevated level of care due to pressor needs #Hypokalemia Like due to renal dysfunction -K Repletion -Urine Lytes -Renal panels #Alcoholic Cirrhosis Sobriety reported since Jun 2024 -POC US to assess for Ascities -holding carvedilol BID due to Hypotensive state - lactulose (titrate to 2-3 BM daily), rifaximin 550 mg BID - Continue thiamine, folate supp - Limit tylenol use #Alcohol Use Disorder Was discharged on 25mg QDAY of Topamax, with recommendations to up titrate 25- 50mg each week. Currently at 50mg -Continue 50mg of Topamax -Consider Addiction Medicine Consult while IP Nutrition: Diet/Nutrition Orders Diet low sodium Sodium 2 gm (low); fluid restricted 2000 ml Frequency: Effective Now Number of Occurrences: Until Specified Order Questions: Na restriction: Sodium 2 gm (low) Additional restrictions: fluid restricted 2000 ml Suicide/Behavior Risk Modification? No Code Status: Full Code Signed: EILEEN SCHROEDER MD, PhD 08/12/2024, 11:34 PM Cosigned by Marty Guidry MD at 08/13/2024 7:15 AM EDT Associated attestation - Marty Guidry MD - 08/13/2024 7:15 AM EDT Hospital Medicine Attending Supervision Note [facility] // [facility] Blair Gilbert was seen 08/12/24 on rounds with the resident physician. I personally interviewed and examined the patient. I reviewed the documentation by the resident and agree as documented unless otherwise stated below. Reason for today's visit: Hepatorenal syndrome (CMS-HCC) Assessment & Plan Blair Gilbert is a 39 y.o. male on hospital day 1. The medical issues being addressed in today's encounter are as follows: Principal Problem: Hepatorenal syndrome (CMS-HCC) Active Problems: Alcoholic cirrhosis of liver without ascites (CMS-HCC) NADIYA (acute kidney injury) (CMS-HCC) Alcohol use disorder Metabolic encephalopathy Transfer to MICU for presumed HRS treatment to include norepi for low BP. Rest of itemized problem list per excellent resident documentation. Medical Decision Making: Severe exacerbation of chronic illness Discussed with physician/SAWYER from another specialty or practice, other licensed professional (PT/OT/CONCRETE STONE FINISHING SUPERVISOR/RT), or a non-medical community professional: MICU/pulm Labs reviewed (1 pt each): cbc, bmp, lft, ammonia Discussion re: admission or escalation of care MARTY GUIDRY MD Attending Physician Division of [facility] Medicine Department of Internal Medicine Pager ID: [phone] 7:14 AM, 08/13/2024 * Donny Mesa MD - 08/12/2024 6:13 PM EDT [facility] ED Note Date of Service: 08/12/2024 Reason for Visit: Hypotension Patient History HPI Blair Gilbert is a 39 y.o. male with PMHx alcoholic cirrhosis of the liver, hepatorenal syndrome, RCC who p/w concern for worsening generalized weakness and abdominal distention over the past week as well as worsening creatinine on recent blood draw. Patient was admitted earlier this month for an NADIYA that was deemed to be likely primarily prerenal as well as having some component of hepatorenal syndrome. He was reportedly seen in clinic where he was noted to be relatively hypotensive and told byhis provider to take a dose of midodrine prior to coming to the emergency department. Patient's creatinine since admission is generally in the low twos (most recently 2.28 on 07/29), but patient's says that today they had a lab draw that demonstrated a higher creatinine (she believes in the fours). Patient also says that he has never had ascites but over the past week has noted distention in his abdomen and says that his breathing has been increasingly labored. Denies recent fever, cough, sore throat. No N/V/D. No abdominal pain. He has chronic pain in his back for which he takes tramadol. Other than stated above, no additional associated symptoms or aggravating or alleviating factors are noted. Past Medical History: Diagnosis Date Alcoholic cirrhosis of liver (CMS-HCC) Alcoholic hepatitis Esophageal varices (CMS-HCC) Hepatorenal syndrome (CMS-HCC) Hypertension Other hyperlipidemia 07/26/2024 Renal cell carcinoma (CMS-HCC) Thrombocytopenia (CMS-HCC) Thyroid disease History reviewed. No pertinent surgical history. Patient reports that he has quit smoking. His smoking use included cigarettes. He uses smokeless tobacco. He reports current alcohol use. He reports current drug use. Drug: Marijuana. Previous Medications CARVEDILOL (COREG) 12.5 MG TABLET Take 1 tablet (12.5 mg total) by mouth 2 times a day with meals. FOLIC ACID (FOLVITE) 1 MG TABLET Take 1 tablet (1 mg total) by mouth daily. LACTULOSE (CHRONULAC) 10 GRAM/15 ML SOLUTION Take 30 mLs (20 g total) by mouth 2 times a day. LEVOTHYROXINE (SYNTHROID) 75 MCG TABLET Take 1 tablet (75 mcg total) by mouth every morning before breakfast. LIDOCAINE (LIDODERM) 5 % Place 1 patch onto the skin daily. Apply patch for 12 hours and then remove patch and leave off for 12 hours. NEXLIZET 180-10 MG TAB Take 1 tablet by mouth daily. NICOTINE (NICODERM CQ) 21 MG/[address] 1 patch onto the skin daily. PANTOPRAZOLE (PROTONIX) 40 MG TABLET Take 1 tablet (40 mg total) by mouth every morning before breakfast. RIFAXIMIN (XIFAXAN) 550 MG TAB TABLET Take 1 tablet (550 mg total) by mouth 2 times a day. THIAMINE HCL (VITAMIN B-1) 100 MG TABLET Take 1 tablet (100 mg total) by mouth daily. TOPIRAMATE (TOPAMAX) 25 MG TABLET Take 1 tablet (25 mg total) by mouth daily for 7 days, THEN 2 tablets (50 mg total) daily for 7 days, THEN 3 tablets (75 mg total) daily for 7 days, THEN 4 tablets (100 mg total) daily for 7 days. Increase dosage weekly by 25 mg as tolerated, please follow-up with your PCP with plan to increase dosage up to 200 mg. TRAMADOL (ULTRAM) 50 MG TABLET Take 1 tablet (50 mg total) by mouth every 12 hours as needed for Pain (Pain). Allergies: Allergies as of 08/12/2024 - Fully Reviewed 08/12/2024 Allergen Reaction Noted Adhesive Itching and Rash 11/25/2023 Duloxetine Other (See Comments) 11/15/2023 All nursing notes and triage notes were appropriately reviewed in the course of the creation of this note. Review of Systems All other systems are negative except as mentioned in HPI. Physical Exam Vitals: 08/12/24 1825 08/12/24 1830 08/12/24 1840 08/12/24 1850 BP: 91/44 98/48 97/54 96/46 BP Location: Patient Position: BP Cuff Size: Pulse: 62 56 58 57 Resp: 14 13 14 12 Temp: TempSrc: SpO2: 100% 100% 100% 100% Physical Exam Constitutional: Appearance: Normal appearance. HENT: Head: Normocephalic and atraumatic. Right Ear: External ear normal. Left Ear: External ear normal. Nose: Nose normal. Mouth/Throat: Mouth: Mucous membranes are moist. Pharynx: Oropharynx is clear. Eyes: General: Scleral icterus present. Right eye: No discharge. Left eye: No discharge. Conjunctiva/sclera: Conjunctivae normal. Cardiovascular: Rate and Rhythm: Normal rate and regular rhythm. Heart sounds: Normal heart sounds. No murmur heard. No gallop. Pulmonary: Effort: Pulmonary effort is normal. No respiratory distress. Breath sounds: Normal breath sounds. No wheezing, rhonchi or rales. Abdominal: General: Abdomen is flat. There is distension. Palpations: Abdomen is soft. Tenderness: There is no abdominal tenderness. There is no guarding or rebound. Comments: Patient has a mildly distended abdomen without tenderness to palpation Musculoskeletal: Right lower leg: No edema. Left lower leg: No edema. Skin: General: Skin is warm and dry. Coloration: Skin is jaundiced. Comments: Patient is diffusely jaundiced from head to toe Neurological: Mental Status: He is alert. Comments: Patient is alert and oriented without asterixis, he has slow speech but is readily understandable in conversation. Diagnostic Studies Labs: Please see electronic medical record for any tests performed in the ED EKG: No EKG Performed Emergency Department Procedures Procedures ED Course and MDM Upon presentation, the patient was jaundiced appearing, afebrile and hemodynamically stable, thoughwith moderately low blood pressures that appear significantly lower than his pressures on admission2 weeks ago. In this patient with report of worsening creatinine and possible new ascites, I have high suspicion for worsening hepatic function and hepatorenal syndrome. I performed a [id number] ultrasound and noted small to moderate volume ascites without a clear pocket that would be reasonablefor tap without risk of bowel injury. At this time I have low suspicion for SBP as patient is nontender and afebrile. Will follow-up labs and patient will likely need admission for further workup andstabilization. ED Course as of 08/12/24 2335 Tue Aug 12, 2024 1845 Venous blood gas, Line/Syringe(!): PH-Line Draw 7.21(!) PCO2-Line Draw 32(!) PO2-Line Draw 25 HCO3-Line Draw 13(!) CO2 Content-Line Draw 14(!) Base Excess-Line Draw -13.9(!) %HBO2-Line Draw 38.2(!) Carboxyhgb-Line Draw 1.0 Methemoglobin-Line Draw 0.5 Reduced Hemoglobin-Line Draw 60.4(!) Patient appears to have a metabolic acidosis without associated lactic acidosis. 1910 Protime-INR(!): Protime 23.4(!) INR 2.0(!) INR elevated consistent with liver failure. 1924 Basic metabolic panel(!): Sodium 131(!) Potassium 3.0(!) Chloride 105 Carbon Dioxide (CO2) 12(!) BUN 69(!) Creatinine 4.84(!) Glucose 140(!) Calcium 9.0 Calculated Osmolality, Serum 294 EGFR 15 Patient appears to be newly hyponatremic and hypokalemic with a significantly elevated creatinine from prior. 192 X-ray Portable Chest IMPRESSION: Mild left basilar atelectasis or scarring. Otherwise clear lungs. 192 Hepatic Function Panel(!): Bili, Total 37.9(!) Bilirubin, Direct 23.2(!) AST (SGOT) 63(!) ALT (SGPT) 42 Alkaline Phosphatase 99 Protein, Total 5.0(!) Albumin 3.1(!) Bilirubin, Indirect 14.7(!) Significantly elevated bilirubin, similar to prior. 2013 Spoke to MICU fellow. At this time both she and I believe that patient is stable for stepdown and without acute ICU needs although it is foreseeable that he may have ICU needs in the coming days. Will discuss this with stepdown unit and together determine whether patient will need to go directly to the ICU or whether he can come to stepdown. Medical Decision Making Problems Addressed: Chronic liver failure without hepatic coma (CMS-HCC): complicated acute illness or injury Amount and/or Complexity of Data Reviewed Labs: ordered. Decision-making details documented in ED Course. Radiology: ordered. Decision-making details documented in ED Course. Risk Prescription drug management. Decision regarding hospitalization. The patient was evaluated by myself and the ED Attending Physician. All management and disposition plans were discussed and agreed upon. Tx: Medications traMADoL (ULTRAM) tablet 50 mg (50 mg Oral Given 08/12/241857) Impression 1. Chronic liver failure without hepatic coma (CMS-HCC) Disposition DISPO: At this time the patient has been admitted to stepdown medicine for further evaluation and management of chronic liver failure. The patient will continue to be monitored here in the emergency department until they are moved to their new treatment location. Workup, treatment and diagnosis were discussed with the patient and/or family members; the patient agrees to the plan and all questionswere addressed and answered. Donny Mesa MD/PhD, PGY3 Emergency Medicine Critical Care Time (Attendings) Donny Mesa MD Resident 08/12/24 4453 Cosigned by Eleazar Pitt MD at 08/14/2024 11:21 PM EDT documented in this encounter Procedure Notes * Mathieu Becker MD - 08/14/2024 2:06 PM EDTAssociated Order(s): Paracentesis Blair Gilbert is a 39 y.o. male patient. 1. Chronic liver failure without hepatic coma (CMS-HCC) 2. Decompensated cirrhosis (CMS-HCC) 3. NADIYA (acute kidney injury) (CMS-HCC) 4. Hypotension, unspecified hypotension type 5. Hepatorenal syndrome (CMS-HCC) 6. Shock (CMS-HCC) 7. Acute metabolic encephalopathy Past Medical History: Diagnosis Date Alcoholic cirrhosis of liver (CMS-HCC) Alcoholic hepatitis Esophageal varices (CMS-HCC) Hepatorenal syndrome (CMS-HCC) Hypertension Other hyperlipidemia 07/26/2024 Renal cell carcinoma (CMS-HCC) Thrombocytopenia (CMS-HCC) Thyroid disease Blood pressure 124/73, pulse 64, temperature 98.1 ??F (36.7 ??C), temperature source Bladder, resp.rate 13, height 6' 4 (1.93 m), weight (!) 251 lb 8.7 oz (114.1 kg), SpO2 99%. Paracentesis Date/Time: 08/14/2024 2:05 PM Performed by: Mathieu Becker MD Authorized by: Mathieu Becker MD Consent: Consent obtained: Written Consent given by: Spouse Risks, benefits, and alternatives were discussed: yes Risks discussed: Bleeding and bowel perforation Alternatives discussed: No treatment Selby protocol: Procedure explained and questions answered to patient or proxy's satisfaction: yes Relevant documents present and verified: yes Test results available: yes Imaging studies available: yes Required blood products, implants, devices, and special equipment available: yes Site/side marked: yes Immediately prior to procedure, a time out was called: yes Patient identity confirmed: Arm band Pre-procedure details: Procedure purpose: Diagnostic Preparation: Patient was prepped and draped in usual sterile fashion Anesthesia: Anesthesia method: Local infiltration Procedure details: Needle gauge: 19; Ochoa-eh catheter. Ultrasound guidance: yes Puncture site: R lower quadrant Fluid removed amount: 100 Fluid appearance: Serosanguinous and kajal Dressinx4 sterile gauze and adhesive bandage Post-procedure details: Procedure completion: Tolerated well, no immediate complications Comments: RLQ accessed w/o issue. No significant bleeding noted. No blood in fluid removed. MATHIEU BECKER MD 08/14/2024 * Tavo Soni MD - 08/13/2024 1:37 PM EDTAssociated Order(s): Central Line Blair Gilbert is a 39 y.o. male patient. 1. Chronic liver failure without hepatic coma (CMS-HCC) 2. Decompensated cirrhosis (CMS-HCC) 3. NADIYA (acute kidney injury) (CMS-HCC) 4. Hypotension, unspecified hypotension type Past Medical History: Diagnosis Date Alcoholic cirrhosis of liver (CMS-HCC) Alcoholic hepatitis Esophageal varices (CMS-HCC) Hepatorenal syndrome (CMS-HCC) Hypertension Other hyperlipidemia 07/26/2024 Renal cell carcinoma (CMS-HCC) Thrombocytopenia (CMS-HCC) Thyroid disease Blood pressure 108/77, pulse 64, temperature 97.5 ??F (36.4 ??C), temperature source Oral, resp. rate 18, height 6' 4 (1.93 m), weight (!) 248 lb 10.9 oz (112.8 kg), SpO2 100%. Central Line Date/Time: 08/13/2024 1:37 PM Performed by: DILIP Sylvesteronsent: Verbal consent obtained. Consent given by: patient Catheter type: triple lumen Indication(s): vascular access Patient location at time of line placement: ICU Conditions of line placement: sterile Preparation: skin prepped with 2% chlorhexidine Location details: right internal jugular Catheter size: 7 Fr Catheter fully inserted (hub at skin): yes Insertion guided by: ultrasound guided Number of attempts: 1 Successful placement: yes Sutured: 2-0 Post procedure chest x-ray ordered: yes Complications: none Tavo Soni DO Internal Medicine Resident PGY2 Cosigned by Mathieu Becker MD at 08/13/2024 6:04 PM EDT Associated attestation - Mathieu Becker MD - 08/13/2024 6:04 PM EDT I was present for the entire procedure. documented in this encounter Consult Notes * Tatiana Pitts RD - 08/15/2024 2:49 PM EDTAssociated Order(s): IP CONSULT TO NUTRITION SERVICES Nutrition Brief Note: RD consult received for Initiation of tube feeding. Please see note written by this write this morning for full assessment details. At that time, plan was for EN support, however CONCR[employer] FINISHING SUPERVISOR alvaro completed, diet has been advanced and plan to hold off on EN support at this time. Will clear consult. Janet Pitts MS, RD, LD, [facility] Clinical Dietitian Pager [phone] * Jabier Burks CCC-CONCR[employer] FINISHING SUPERVISOR - 08/15/2024 11:34 AM EDT Speech Language Pathology Clinical Swallow Assessment Name: Blair Gilbert : 1985 Attending Physician: Raza Rhoades MD Admission Diagnosis: Chronic liver failure without hepatic coma (CMS-HCC) [K72.10] Cirrhosis (CMS-HCC) [K74.60] Date: 08/15/2024 Reviewed Pertinent hospital course: Yes Hospital Course [employer]CRETE [employer]ONE FINISHING SUPERVISOR: 39 y.o. male with a PMH significant for cirrhosis 2/2 EtOH use d/b ascites, recent EtOH hepatitis, CKD, RCC, HTN, HLD who presented to the hospital on 08/12/2024 for worsening generalized weakness and abdominal distention, worsening renal function. Patient was recently dischargedfrom 07/29/2024 for HRS that improved with albumin and prior to that 07/08 for EtOH hepatitis at . Reportedly has a high PETH at and was denied OLT but has since entered a treatment program. Imaging: CXR 08/13: Right IJ approach central venous catheter tip projects over the SVC. No evidence of pneumothorax. [employer]CR[employer] FINISHING SUPERVISOR Hx: No prior ST hx at [facility] Assessment complete?: Yes Assessment: Patient presents with no clinical signs or symptoms of aspiration with any consistency,or concerns for oropharyngeal dysphagia. The successive 3oz thin liquid challenge was administered and passed, resulting in no clinical signs of aspiration. Mastication is timely and effective, with adequate oral clearance. No further acute [employer]CR[employer] FINISHING SUPERVISOR services warranted for dysphagia at this time. Plan/Recommendation: - Diet: Regular (IDDSI 7) with Thin Liquids (IDDSI 0) - Medication Administration: whole with liquid - Discharge from [employer]CR[employer] FINISHING SUPERVISOR - no acute needs at this time - CONCR[employer]E [employer]ONE FINISHING SUPERVISOR at discharge is not recommended Orientation: Person: Yes Place: Yes Time: No Situation: No Behavioral Profile: alert, cooperative, confused Pain: Pain Score: 0 - No Pain Aspiration Risk Dysphagia Diagnosis: WFL Recommended Solid for Diet: Regular Recommended Liquid for Diet: Thin Liquids (IDDSI 0) Medication Administration: whole with liquid Baseline Assessment History of Intubation: No Dentition: Adequate Baseline diet: regular diet and thin liquids Current diet: NPO Vision: Functional for self-feeding Patient Positioning: Upright in bed Volitional Cough: Strong Volitional Swallow: WFL Respiratory Status Respiratory Status: Room air Cranial Nerve & Laryngeal Function Exam CNIII - Occulomotor: Within Functional Limits CNV- Trigeminal: Within Functional Limits CNVII - Facial : Within Functional Limits CNIX - Glossopharyngeal: Within Functional Limits CNX - Vagus: Within Functional Limits CNVXII - Hypoglossal Status: Within Functional Limits Dentition and Hearing Dentition: Adequate Hearing Exceptions: None Consistencies Assessed Consistencies Assessed: Thin;Hard Solid Thin Presentation: Straw Oral: Within functional limits Pharyngeal: No overt s/s of aspiration;Laryngeal elevation appreciated upon palpation Hard Solid Presentation: Clinician Fed Oral: Within functional limits Pharyngeal: No overt s/s of aspiration;Laryngeal elevation appreciated upon palpation Patient and Family Education Patient and Family Education: Patient educated on, current POC, role of CONCRETE [employer] FINISHING SUPERVISOR, current diet recommendations Education response: Patient demonstrated understanding End of Session: Patient was left in bed with call light within reach and all needs met. Safety handoff completed with RN. Jabier Burks MA, CCC-CONCRETE STONE FINISHING SUPERVISOR Speech-Language Pathologist, Rehab Services [facility] MBSImP Certified Clinician Rehab Services [phone] Time Start Time: 1120 Stop Time: 1130 Time Calculation (min): 10 min Charges $Clinical Swallow: 1 Procedure Patient Class Inpatient * NUBIA Monge - 08/13/2024 1:55 PM EDTAssociated Order(s): IP CONSULT TO SOCIAL WORK HEALTH Care Management/Social Work Assessment Patient Information Patient Name: Blair Gilbert Hospital Day: 1 Inpatient/Observation: Inpatient Admit Date: 08/12/2024 Admission Diagnosis: Chronic liver failure without hepatic coma (CMS-HCC) [K72.10] Cirrhosis (CMS-HCC) [K74.60] Attending provider: Raza Rhoades MD PCP: No Pcp Home Pharmacy: [facility] [address] [place] [address], [facility] [place] [address] [address] [facility] [address] [facility] [address] Issues related to obtaining medications: NA Payor Information Medical Insurance Coverage: Payor: [facility] / Plan: [facility] / Product Type: *No Producttype* / Secondary Payor: NA Functional Assessment Functional Assessment Assessment Information Obtained From:: Patient, Spouse How do you wish to be addressed?: Blair Current Mental Status: Awake Mental Status Prior to Admission: Unable to Assess Mental Health History: No Suicide Attempts: No Activities of Daily Living: Independent Work History: Full-time Job-Profession:: [employer] Marital Status: Number of children and their names: 0 Relative Search Completed: No Demographics Correct:: Yes Current Living Arrangements Current Living Arrangements Current Living Arrangements: Home Type of Housing: House Who do you live with?: With Family What family member?: spouse One Story or Two (check all that apply): One Story Enter the number of steps and rails to enter the residence: 0 Enter the number of steps and rails inside the residence: 0 History of Falls?: No Community Services Community Services Community Services at Home: DME DME Current: 3n1 BS Was any abuse reported by patient?: No [place] Status & Connection to [facility] Services Status & Connection to VA Services Are you a ?: No Support Systems Emergency contact: Extended Emergency Contact Information Primary Emergency Contact: Abdiaziz Gilbert Mobile Relation: Spouse Secondary Emergency Contact: brown gilbert Mobile Relation: Brother Support Systems Legal Status: N/A Name of Guardian/POA/ Payee and Phone Number: NA Primary Caregiver: Self, Family Caregiver name/phone number: NA Times of available support: Limited 04/12 hands on (add comment) Marital Status: Number of children and their names: 0 Relative Search Completed: No Demographics Correct:: Yes Expected Discharge Disposition: Home with Home Care, Inpatient Rehabilitation Facility Next of Kin: Abdiaziz Gilbert Next of Kin Relationship: Spouse Next of Kin Assessment Information Obtained From:: Patient, Spouse Other Pertinent Information Ingot Caster met with MICU team for daily rounds and completed chart review. Patient is not anticipated to be medically ready today. Pt currently receiving ICU LOC. H&P: Blair Gilbert is a 39 y.o. male with a PMH significant for cirrhosis 2/2 EtOH use d/b ascites, recent EtOH hepatitis, CKD, RCC, HTN, HLD who presented to the hospital on 08/12/2024 for worsening generalized weakness and abdominal distention over the past week as well as worsening creatinine on recentblood draw. Assessment: Chief Of Staff Doctor/Ingot Caster Michele Rodríguez met with patient, his spouse and sister in law at bedside to complete psychosocial assessment for discharge planning as part of routine care. MEREDITH introduced herself and role of SW in hospital. SW verified demographic information. Patient lives with his spouse in a house. Patient has 0 step(s) to enter the home and 0 steps inside the home. Patient has 0 children. Pt has no reported falls at home. Pt was independent with ADLs prior to admission. Patient has DME use of a shower chair as of recently. Pt is not using community resources to meet his needs at this time. 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 Will require note for workat this time. Patient has no history of or current mental health concerns or diagnoses. Patient has a history of or current alcohol abuse.Last consumed about 1.5 months ago. No home oxygen or dialysis. No history of jail facility or inpatient rehabilitation facility admissions. No history of home health care services. SW inquired regarding Advance Directives paperwork. Pt reported no Advance Directives. Patient's legal next of kin is his spouse, Abdiaziz Gilbert: [phone]. Advance Directives (For Healthcare) Advance Directive: Patient does not have advance directive No Advanced Directive: Patient would NOT like information about advanced directives, forgoing or with-drawing life-sustaining treatment, and withholding resuscitative services Healthcare Agent Appointed: No Healthcare Agent's Name: NA Pre-existing DNR/DNI Order: No Patient Requests Assistance: No Pt's PCP is Enedina Mcguire with [facility]. PCP not in [facility]. Discharge Plan Met with patient to initiate discussion regarding discharge planning. Introduced self and role of case management/social work and provided contact information. Anticipated Discharge Plan: TBD, pending patients medical progress and needs. Anticipated Discharge Date: 08/18/24 Anticipated Transportation: spouse vs BLS Patient/Family aware and taking part in the discharge plan. Patient/family educated that once post-acute care needs have been identified, a provider list applicable to the identified post-acute care needs as well as the insurance provider will be provided, and patient/family have the freedom to choose their provider(s); financial interest(s) are disclosed as appropriate. NUBIA Monge [facility] [phone] * Ciera Camilo MD - 08/13/2024 9:52 AM EDTAssociated Order(s): IP CONSULT TO NEPHROLOGY Images from the original note were not included. Department of Internal Medicine Nephrology & Hypertension Consult History & Physical Note Patient: Blair Gilbert Date of Admit: 08/12/2024 Referring physician: Raza Rhoades MD Assessment Renal Function: Recent Labs 08/13/24 0451 08/12/24 2252 08/12/24 1829 BUN 64* 62* 69* CREATININE 4.10* 4.52* 4.84* # Oliguric NADIYA on CKD stage II # c/f HRS Patient presenting with hypotension, ascites, bland UA, and significant elevation in Cr from baseline 1.3-1.4. Nabor 84 not entirely consistent with HRS, however he received 1L of IV normosol prior to obtaining urine lytes. Started albumin challenge, initiated on midodrine, octreotide, and norepi. Follows with Nephrology at . Norepi and terli with similar efficacy in terms of vasoconstriction forHRS, no need to start terli now since he is on NE. # hx left renal mass 4 cm Bosniak 4 complex and solid cystic renal mass in the left kidney, s/p cryoablation with IR 10/2022. Pathology with scant atypical cells with clear cytoplasm, differential includes clear cell RCC,unable to exclude atypical renal cyst and clear cell papillary renal cell tumor due to small sample. # mild R hydronephrosis Identified on ELAINE on 07/26/24. Possibly 2/2 nephrolithiasis. Electrolytes: Na: 132 K: 2.7 Cl: 105 Alb: 3.3; 3.3 Ma.4 Ca: 8.5 Phos: 5.2 # hypokalemia Possibly 2/2 lactulose, reports 3-4 BM daily. Acid Base Status: Anion Gap: 15 Bicarb: 12 # Acidosis Mild HAGMA with concurrent NAGMA. HAGMA likely 2/2 NADIYA on CKD, NAGMA could be from stool output 2/2lactulose as well as topiramate inhibiting bicarb resorption. Topiramate was started last admissionfor alcohol use disorder, but with his CKD and lactulose he is already predisposed to metabolic acidosis - would consider re- engaging Addiction Medicine for other options. Hypertension/CVS: BP: (!) 82/46 PLAN - continue levo, goal MAP >70 - repeat ELAINE - replete K first, then replete bicarb w/ isotonic bicarb - hold topiramate, Addition Med consult for other options for AUD Thank you for allowing us to participate in this patient's care. Discussed with Consult Staff. Ciera Camilo MD Internal Medicine-Pediatrics PGY-1 Chief Complaint Chief Complaint Patient presents with Hypotension Reason for Consult C/f HRS History of Present Illness Blair Justin is a 39 y.o. y/o male with PMHx of alcohol-related cirrhosis d/b ascites, HE, and esophageal and gastric varices, acute pancreatitis 2/2 ERCP, hypothyroidism, hyperlipidemia, anxiety, CKD, and hx left RCC presenting with increased abdominal distention, generalized weakness, and worsening Cr on recent blood draw. He is accompanied by his and his [id number]. Initially admitted to [facility] but transferred to MICU for worsening hypotension. Reportedly has not hadascites before but MRI abdomen from 08/2022 with mild perihepatic and perisplenic ascites. reports that he has abstained from alcohol use for the last 1.5 months and is currently in rehab. Medications: Home Medications: Home Medications Medication Sig Taking? Last Dose carvediloL (COREG) 12.5 MG tablet Take 1 tablet (12.5 mg total) by mouth 2 times a day with meals. Yes 08/11/2024 Bedtime folic acid (FOLVITE) 1 MG tablet Take 1 tablet (1 mg total) by mouth daily. Yes 08/12/2024 Morning lactulose (CHRONULAC) 10 gram/15 mL solution Take 30 mLs (20 g total) by mouth 2 times a day. Yes 08/12/2024 Morning levothyroxine (SYNTHROID) 75 MCG tablet Take 1 tablet (75 mcg total) by mouth every morning before breakfast. Yes 08/12/2024 Morning NEXLIZET 180-10 mg Tab Take 1 tablet by mouth daily. Yes 08/12/2024 pantoprazole (PROTONIX) 40 MG tablet Take 1 tablet (40 mg total) by mouth every morning before breakfast. Yes 08/12/2024 Morning rifAXIMin (XIFAXAN) 550 mg Tab tablet Take 1 tablet (550 mg total) by mouth 2 times a day. Yes 08/12/2024 Morning thiamine HCl (VITAMIN B-1) 100 MG tablet Take 1 tablet (100 mg total) by mouth daily. Yes 08/11/2024Morning topiramate (TOPAMAX) 25 MG tablet Take 1 tablet (25 mg total) by mouth daily for 7 days, THEN 2 tablets (50 mg total) daily for 7 days, THEN 3 tablets (75 mg total) daily for 7 days, THEN 4 tablets (100 mg total) daily for 7 days. Increase dosage weekly by 25 mg as tolerated, please follow-up with your PCP with plan to increase dosage up to 200 mg. Yes 08/12/2024 Morning traMADoL (ULTRAM) 50 mg tablet Take 1 tablet (50 mg total) by mouth every 12 hours as needed for Pain (Pain). Yes 08/12/2024 Morning lidocaine (LIDODERM) 5 % Place 1 patch onto the skin daily. Apply patch for 12 hours and then remove patch and leave off for 12 hours. Unknown nicotine (NICODERM CQ) 21 mg/[address] 1 patch onto the skin daily. Unknown Inpatient Meds: albumin human 25% (12.5 g/ 50 mL) 12.5 g Intravenous Q30 Min [Held by provider] carvediloL 12.5 mg Oral BID WC folic acid 1 mg Oral Daily 0900 heparin 5,000 Units Subcutaneous 3 times per day lactulose 20 g Oral TID levothyroxine 75 mcg Oral QAM AC melatonin 3 mg Oral DAILY 1800 mupirocin 1 g Topical BID pantoprazole 40 mg Oral QAM AC phytonadione (vitamin K1) (AQUA-MEPHYTON) 10 mg in sodium chloride 0.9 % 50 mL IVPB 10 mg Intravenous Daily 0900 rifAXIMin 550 mg Oral BID thiamine HCl 100 mg Oral Daily 0900 Continuous Infusions: octreotide (SANDOSTATIN) 500 mcg/mL 2 mcg/mL in dextrose 5% in water (D5W) 250 mL infusion 50 mcg/hr (08/13/24 0947) PERIPHERAL norepinephrine 12 mcg/min (08/13/24 1014) PRN medications: acetaminophen, dextrose 10% in water OR dextrose 10% in water, glucose In addition to the above an extensive amount of complex data in the patients lab and chart were reviewed. Physical Exam Gen: Sleeping, briefly arouses to voice CV: RRR PULM: Normal WOB on RA ABD: Mildly distended EXT: No BLE edema SKIN: Warm and dry. Diffuse jaundice. NEURO: No focal deficits Diagnostic Imaging Reviewed in EMR. Cosigned by Dwayne Paez MD at 08/13/2024 6:24 PM EDT Associated attestation - Dwayne Paez MD - 08/13/2024 6:24 PM EDT I saw and examined the patient. I discussed with the resident or fellow and agree with Dr. Black's findings and plan as documented in the note. 39-year-old gentleman with a history of alcohol-related cirrhosis and with the potential for liver transplant at [facility] provided the patient is sober for 6 weeks. He is about 1-1/2 months into this. He was admitted to MICU for worsening hypotension and was found to have worsening NADIYA. His urine studies are not very helpful. Please see Dr. Black's recommendation for sorting out the differential in this case. Patient is undergoing albumin challenge. The clinical picture should clearwhether this is HRS in the next 24 to 48 hours. The therapy decision can be made from renal perspective at that time. Discussed extensively with the MICU team. Will continue to follow. Dwayne Paez MD, This note was completely edited, written and reviewed by me and consists of information cut and pasted from the my most recent visit, my smart phrases and other Epic tools. I have personally reviewedall aspects of this note to at least include reviewing this patient's chart and problem list, updating the history, physical exam, lab and procedure results, and assessment and plan as detailed aboveand below. As such this visit note reflects my current evaluation and management for this patient. * Feliciano Freeman MD - 08/13/2024 7:03 AM EDTAssociated Order(s): IP CONSULT TO LIVER [facility] HEPATOLOGY CONSULT NOTE Referring Physician: Raza Rhoades MD Consult Attending: Dr Maza 08/13/2024 7:04 AM Reason for Consult: co-management Blair Gilbert is a 39 y.o. male with EtOH cirrhosis d/b HE, also with small non- bleeding EV, recent alcohol-associated hepatitis, RCC s/p treatment and c/f congenital renal disorder, HTN, HLD, CKD, presenting with generalized weakness and worsening outpatient labs. Of note, patient was recently admitted 07/08/24-07/23/24 at with alcohol- associated hepatitis and ACLF in the setting of underlying EtOH cirrhosis. Was treated with NAC and PO steroids. At had several ultrasounds without ascites or PVT. Discharged on lactulose + rifaximin, carvedilol 12.5 mg BID, as well as 28d course of prednisolone. Was also discharged on midodrine and octreotide? Has not been able to get octreotide. PETH >1999. Drug panel negative. Other infectious/autoimmune serologies negative. Marked ineligible d/t alcohol use. Then re-admitted to [facility] 07/25-07/29 after worsening outpatient labs (NADIYA). also noted ongoing/worsening jaundice. Repeat US without ascites. His last drink was prior to admission at . During prior admission, renal function improved with volume expansion, held octreotide and midodrine. Given no large volume ascites and incongruent urine studies, thought renal function was not relatedto HRS physiology but rather pre-renal. Now presents with generalized weakness, worsening labs in outpatient setting. On arrival, had been intermittently hypotensive though no fevers or tachycardia, no requiring O2. Sodium 129 (intermittently low on past admission), Cr 4.84 (from 2.28 on discharge), lactate wnl, Hgb 12.5 -> 10.6 (no s/sx of GI bleeding), no leukocytosis, AST normalized, albumin newly low at 2.9, and T bili down fromhigh >60 to 33.4. Initially on the floor but moved to MICU due to pressures. On levophed gtt andoctreotide gtt. Regarding social support/EtOH: Reports being diagnosed with cirrhosis about 2 years ago. Since then, he has stopped drinking alcohol twice, each time for about 2-3 months before relapse. He had seen two counselors in the past - one was not a good fit for him and the other moved away. 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 is main support system at home. Problem List Principal Problem: Hepatorenal syndrome (CMS-HCC) Active Problems: Alcoholic cirrhosis of liver without ascites (CMS-HCC) NADIYA (acute kidney injury) (CMS-HCC) Alcohol use disorder Metabolic encephalopathy History Past Medical History: Diagnosis Date Alcoholic cirrhosis of liver (CMS-HCC) Alcoholic hepatitis Esophageal varices (CMS-HCC) Hepatorenal syndrome (CMS-HCC) Hypertension Other hyperlipidemia 07/26/2024 Renal cell carcinoma (CMS-HCC) Thrombocytopenia ([facility]) Thyroid disease History reviewed. No pertinent surgical history. History reviewed. No pertinent family history. Social History[1] Allergies[2] Prior to Admission Medications Home Medications Medication Sig Taking? Last Dose carvediloL (COREG) 12.5 MG tablet Take 1 tablet (12.5 mg total) by mouth 2 times a day with meals. Yes 08/11/2024 Bedtime folic acid (FOLVITE) 1 MG tablet Take 1 tablet (1 mg total) by mouth daily. Yes 08/12/2024 Morning lactulose (CHRONULAC) 10 gram/15 mL solution Take 30 mLs (20 g total) by mouth 2 times a day. Yes 08/12/2024 Morning levothyroxine (SYNTHROID) 75 MCG tablet Take 1 tablet (75 mcg total) by mouth every morning before breakfast. Yes 08/12/2024 Morning NEXLIZET 180-10 mg Tab Take 1 tablet by mouth daily. Yes 08/12/2024 pantoprazole (PROTONIX) 40 MG tablet Take 1 tablet (40 mg total) by mouth every morning before breakfast. Yes 08/12/2024 Morning rifAXIMin (XIFAXAN) 550 mg Tab tablet Take 1 tablet (550 mg total) by mouth 2 times a day. Yes 08/12/2024 Morning thiamine HCl (VITAMIN B-1) 100 MG tablet Take 1 tablet (100 mg total) by mouth daily. Yes 08/11/2024Morning topiramate (TOPAMAX) 25 MG tablet Take 1 tablet (25 mg total) by mouth daily for 7 days, THEN 2 tablets (50 mg total) daily for 7 days, THEN 3 tablets (75 mg total) daily for 7 days, THEN 4 tablets (100 mg total) daily for 7 days. Increase dosage weekly by 25 mg as tolerated, please follow-up with your PCP with plan to increase dosage up to 200 mg. Yes 08/12/2024 Morning traMADoL (ULTRAM) 50 mg tablet Take 1 tablet (50 mg total) by mouth every 12 hours as needed for Pain (Pain). Yes 08/12/2024 Morning lidocaine (LIDODERM) 5 % Place 1 patch onto the skin daily. Apply patch for 12 hours and then remove patch and leave off for 12 hours. Unknown nicotine (NICODERM CQ) 21 mg/[address] 1 patch onto the skin daily. Unknown Current Medications Current Facility-Administered Medications Medication Dose Frequency Provider Last Admin acetaminophen 650 mg Q4H PRN Edwige Bernard MD albumin human 25% (12.5 g/ 50 mL) 12.5 g Q30 Min Edwige Bernard MD [Held by provider] carvediloL 12.5 mg BID WC Edwige Bernard MD dextrose 10% in water 12.5 g Q15 Min PRN Edwige Bernard MD Or dextrose 10% in water 25 g Q15 Min PRN Edwige Bernard MD folic acid 1 mg Daily 0900 Edwige Bernard MD glucose 12 g Q15 Min PRN Edwige Bernard MD heparin 5,000 Units 3 times per day Edwige Bernard MD 5,000 Units at 08/13/24 0436 lactulose 20 g TID Edwige Bernard MD 20 g at 08/12/24 2253 levothyroxine 75 mcg QAM AC Edwige Bernard MD 75 mcg at 08/13/24 0635 melatonin 3 mg DAILY 1800 Edwige Bernard MD 3 mg at 08/12/24 2253 mupirocin 1 g BID Terra Tamera, DO 1 g at 08/13/24 0431 octreotide (SANDOSTATIN) 500 mcg/mL 2 mcg/mL in dextrose 5% in water (D5W) 250 mL infusion 50 mcg/hr Continuous Terra Tamera, DO 50 mcg/hr at 08/13/24 0635 pantoprazole 40 mg QAM Edwige Bernard MD 40 mg at 08/13/24 0635 PERIPHERAL norepinephrine 0-15 mcg/min Continuous Terra Tamera, DO 8 mcg/min at 08/13/24 0635 rifAXIMin 550 mg BID Edwige Bernard MD 550 mg at 08/12/24 2253 thiamine HCl 100 mg Daily 0900 Edwige Bernard MD topiramate 50 mg Daily 09 Edwige Bernard MD Followed by [START ON 08/14/2024] topiramate 75 mg Daily 09 Edwige Bernard MD Followed by [START ON 08/21/2024] topiramate 100 mg Daily 0900 Edwige Bernard MD Review of Systems 12 point review of systems negative except as above. Physical Examination Blood pressure 113/66, pulse 62, temperature 97.5 ??F (36.4 ??C), temperature source Oral, resp. rate 12, height 6' 4 (1.93 m), weight (!) 248 lb 10.9 oz (112.8 kg), SpO2 100%. Gen: No acute distress. Non-frail. HEENT:. Mucous membranes moist. +scleral icterus. CV: Regular rate and rhythm. Lungs: Normal WOB Abdomen: Soft, nontender, nondistended. No rebound or guarding present. No appreciable fluid wave. Extremities: 1+ bilateral lower extremity edema. Skin: No bruising or rash noted.+jaundice,+ spider angiomata and palmar erythema. Neuro: Alert and oriented to person, place, and time. No focal deficits. No asterixis. Psych: Normal mood and affect. Normal speech and behavior. Labs/Imaging Lab Results Component Value Date GLUCOSE 126 (H) 08/13/2024 BUN 64 (H) 08/13/2024 CO2 12 (L) 08/13/2024 CREATININE 4.10 (H) 08/13/2024 K 2.7 (LL) 08/13/2024 NA 132 (L) 08/13/2024 CL 105 08/13/2024 CALCIUM 8.5 (L) 08/13/2024 Lab Results Component Value Date ALKPHOS 71 08/13/2024 ALT 27 08/13/2024 AST 37 08/13/2024 BILITOT 33.4 (H) 08/13/2024 ALBUMIN 3.3 (L) 08/13/2024 ALBUMIN 3.3 (L) 08/13/2024 BILIDIRECT 21.43 (H) 08/13/2024 PROT 4.6 (L) 08/13/2024 Lab Results Component Value Date MG 2.4 08/13/2024 Lab Results Component Value Date PHOS 5.2 (H) 08/13/2024 Lab Results Component Value Date WBC 7.3 08/13/2024 HGB 10.6 (L) 08/13/2024 HCT 28.9 (L) 08/13/2024 MCV 96.2 08/13/2024 PLT 36 (L) 08/13/2024 Lab Results Component Value Date INR 2.6 (H) 08/13/2024 MELD 3.0: 43 at 08/13/2024 4:51 AM Calculated from: Serum Creatinine: 4.1 mg/dL (Using max of 3 mg/dL) at 08/13/2024 4:51 AM Serum Sodium: 132 mmol/L at 08/13/2024 4:51 AM Total Bilirubin: 33.4 mg/dL at 08/13/2024 4:51 AM Serum Albumin: 3.3 g/dL at 08/13/2024 4:51 AM INR(ratio): 2.6 at 08/13/2024 4:51 AM Age at listing (hypothetical): 39 years Sex: Male at 08/13/2024 4:51 AM Assessment/Plan Blair Gilbert is a 39 y.o. male with EtOH cirrhosis d/b HE, also with small non- bleeding EV, recent alcohol-associated hepatitis, RCC s/p treatment and c/f congenital renal disorder, HTN, HLD, CKD, presenting with generalized weakness and worsening outpatient labs. In the ICU due to hypotension and pressor requirements. Noted to have NADIYA on CKD and encephalopathy on admission. #EtOH Cirrhosis d/b HE #Acute Encephalopathy #NADIYA on CKD #Alcohol-Associated Hepatitis - improving - Continue levophed gtt to aid in renal perfusion - No indication for octreotide gtt at present - Continue albumin challenge + levo - Urine sodium 81, not typically asscoiated with HRS, eval for ascites - Daily MELD labs and urine sodium - Ultrasound w/ duplex to evaluate for ascites and PVT - Broad infectious evaluation including diagnostic paracentesis if able - CXR without hepatic hydrothorax - Holding home carvedilol 12.5 mg BID due to hypotension. May need reduced dose on d/c if pressurescan tolerate - May require midodrine TID dosing once pressors weaned for pressures - Continue lactulose (titrate to 2-3 BM daily), rifaximin 550 mg BID - Continue thiamine, folate supp - Needs repeat EGD with decompensation, can performed non-urgently inpatient with clinical stability - Needs to complete at least 3 months of chemical dependency treatment. Seen by addiction last admission. Will discuss for outpatient evaluation. This patient was discussed with attending, Dr Maza. Please see attending attestation for additional recommendations. Feliciano Freeman MD Gastroenterology & Hepatology Fellow PGY-4 Division of Digestive Diseases [facility] 08/13/2024, 7:04 AM [1] Social History Tobacco Use Smoking status: Former Types: Cigarettes Smokeless tobacco: Current Substance Use Topics Alcohol use: Yes Comment: History of alcohol abuse, reports no use in 3 week- typically endorses use as 4 glasses ofwine a days Drug use: Yes Types: Marijuana [2] Allergies Allergen Reactions Adhesive Itching and Rash Tegaderm adhesive on Ivs, pt states its tolerable Duloxetine Other (See Comments) Became Manic Cosigned by Chris Orosco MD at 08/13/2024 5:19 PM EDT Associated attestation - Chris Orosco MD - 08/13/2024 5:19 PM EDT Attending Physician's Note: I saw and examined the patient. I discussed with the resident or fellow and agree with resident's/fellow's findings and plan as documented in the note. Copied / pasted information was reviewed and confirmed to be accurate. >10 point POS was performed and negative unless otherwise documented in the note. Please also see below. 39 y.o. man with complex PMH of Cirrhosis secondary to alcohol, ascites, hepatic encephalopathy, non bleeding esophageal varices, Acute alcohol hepatitis (06/2024), and CKD admitted for acute on chronic liver failure. PE Vitals: 08/13/24 0800 08/13/24 0900 08/13/24 1200 08/13/24 1600 BP: (!) 82/46 108/77 111/62 BP Location: Patient Position: BP Cuff Size: Pulse: 61 64 60 Resp: 12 18 13 Temp: 98 ??F (36.7 ??C) 97.5 ??F (36.4 ??C) 97.5 ??F (36.4 ??C) TempSrc: Oral Oral Axillary SpO2: 100% 100% 100% 100% Weight: Height: General: awake, alert, no apparent distress HENT: + sclera icteric Neck: supple Pulmonary: good air exchange, bilateral breath sounds Cardiac: S1 and S2 heard Abdomen:soft, non-tender, non-distended, normoactive bowel sounds, no guarding or rebound, no hepatomegaly, no splenomegaly Neuro: awake, alert, oriented x 3, no confusion, no asterixis Extremities: no pedal edema Skin:+ jaundice MELD 3.0: 43 at 08/13/2024 12:48 PM MELD-Na: 43 at 08/13/2024 12:48 PM Calculated from: Serum Creatinine: 3.91 mg/dL (Using max of 3 mg/dL) at 08/13/2024 12:48 PM Serum Sodium: 134 mmol/L at 08/13/2024 12:48 PM Total Bilirubin: 33.4 mg/dL at 08/13/2024 4:51 AM Serum Albumin: 3.3 g/dL at 08/13/2024 4:51 AM INR(ratio): 2.6 at 08/13/2024 4:51 AM Age at listing (hypothetical): 39 years Sex: Male at 08/13/2024 12:48 PM A&P 39 y.o. year old male with complex medical issues as detailed in HPI Acute on chronic liver failure: secondary to acute alcohol hepatitis with underlying decompensated alcohol cirrhosis. High MELD. Liver failure: bilirubin > 30, INR > 2.5. Diagnostic paracentesis. Renal failure: creatinine 3.91, underlying CKD with baseline creatinine around 1.3 -1.5. Volume expansion with albumin. On norepinephrine. Circulatory failure: on vasopressor support. Infectious workup. Cardiac workup. Brain: intact Lungs: intact Varices - no signs of active bleeding. HCC screening - up to date Transplant - not suitable candidate at this time. - continue chemical dependency treatment - referral for outpatient pre pre liver transplant program Consider palliative care discussion with patient and family 08/13/24 KELLIE-C-ACLF score = 55 41.2% probability of at 1 month 61.3% probability of at 3 months 66.0% probability of at 6 months 72.7% probability of at 1 year Chris Orosco MD, MPH Transplant hepatology Pager: [phone] documented in this encounter Nursing Notes * Landy Soares RN - 08/16/2024 2:18 AM EDT Pt transferred to room 8157 by bedside RN. Pt on CMU. All pt belongings and paperwork transferred with pt. No complications, VSS, report given to next RN. * Dennis Muse RN - 08/13/2024 12:03 AM EDT Pt. Arrived to MICU bed 9 from ED. On RA. VSS. PIV in place. Moving to MICU bed and monitor. MD RN bedside. * Edwige Mata RN - 08/12/2024 5:52 PM EDT Patient to CEC with hypotension. Patient appears slow to respond. Patient is jaundice and not well appearing. Patient is ambulatory at triage. Patient hx of cirrhosis of liver. documented in this encounter ED Notes * Leeanna Garibay RN - 08/12/2024 11:44 PM EDT Report called to MICU RN * Amber Cazares RN - 08/12/2024 10:23 PM EDT Bedpan and urinal provided. Janneth care and clean linens given * Amber Cazares RN - 08/12/2024 10:22 PM EDT Admit team at bedside * Leeanna Garibay RN - 08/12/2024 7:59 PM EDT Patient lying on stretcher, complaining of generalized pain and feeling sluggish . Drowsy but wakes appropirately, oriented, slow to answer questions but answers appropriately. Hypotensive - reports mild dizziness at rest. Respirations even and unlabored on room air - reports SOB when moving from lying to seated/seated to standing. Family at bedside. * NUBIA Wilburn - 08/12/2024 7:15 PM EDT [facility] Social Work Trauma / Critically Ill Assessment Blair Gilbert [id number] Patient Registered as ZZZ: Patient is not registered as ZZZ Reason for Referral / Presenting Problem: Hypotension Means of Arrival: Walk in / private vehicle Patient Arrived from: Home: [address] Legal Next of Kin: : Yes Name: Abdiaziz Gilbert Contact Information: [phone] Family Contact and Involvement: Pt and other family member at bedside. Assessment and Social Work Interventions: Pt is a 39 year old man being seen for hypotension. SW bedside for supportive care. Pt transported from home accompanied by his . Pt has family at bedside. SW confirmed pt emergency contact information. No further CEC SW needs, SW available to support. Safety Concerns: None reported or observed. Referral / Disposition Plan: PT admitted to MICU 09 * Tatiana Villegas RN - 08/12/2024 6:17 PM EDT Pt brought to SRU 7 from triage for hypotension. Pt jaundice appearing, hx of cirrhosis. Pt c/o of pain around the middle of his back and upper abdomen. Pt abdomen is distended, per pt spouse this isnew. Pt spouse stated that pt has new confusion and slower responses. Pt not on transplant list as of now. Pt A&Ox4, color is jaundice, respirations even and unlabored. documented in this encounter Miscellaneous Notes * Care Coordination - Lorrie Rogers - 08/19/2024 12:56 PM EDT 08/19/24 4:40 pm SW called and spoke with patient's spouse to inform her they have been unable to arrange C at this time, multiple C's have been unable to accept. SW shared they are still waiting to hear back from [facility] to see if they can accept. Lorrie Rogers [facility] [phone] Inpatient Care Management * Plan of Care - Cady Dykes RN - 08/19/2024 12:42 PM EDT Problem: Knowledge Deficit Goal: Patient/family/caregiver demonstrates understanding of disease process, treatment plan, medications, and discharge instructions Description: Complete learning assessment and assess knowledge base. Outcome: Adequate for Discharge Problem: Potential for Compromised Skin Integrity Goal: Skin integrity is maintained or improved Description: Assess and monitor skin integrity. Identify patients at risk for skin breakdown on admission and per policy. Collaborate with interdisciplinary team and initiate plans and interventions as needed. Outcome: Adequate for Discharge Goal: Nutritional status is improving Description: Monitor and assess patient for malnutrition (ex- brittle hair, bruises, dry skin, paleskin and conjunctiva, muscle wasting, smooth red tongue, and disorientation). Collaborate with interdisciplinary team and initiate plan and interventions as ordered. Monitor patient's weight and dietary intake as ordered or per policy. Utilize nutrition screening tool and intervene per policy. Determine patient's food preferences and provide high-protein, high- caloric foods as appropriate. Outcome: Adequate for Discharge Problem: Incontinence Goal: Perineal skin integrity is maintained or improved Description: Assess genitourinary system, perineal skin, labs (urinalysis), and history of incontinence to include past management, aggravating, and alleviating factors. Collaborate with interdisciplinary team and initiate plans and interventions as needed. Outcome: Adequate for Discharge Problem: Patient will remain free of injury d/t fall Goal: High Fall Risk Precautions Outcome: Adequate for Discharge Goal: Additional High Fall Risk Precautions (consider the following) Outcome: Adequate for Discharge Problem: Physical Therapy Goal: Encourage Increased Activity to Prmote Strength/ROM Description: Encourage and instruct pt/family on activity to promote improved cardio-pulmonary endurance, muscle strength and ROM Outcome: Adequate for Discharge Goal: Instruct PT/Family on Complications of Immobility Outcome: Adequate for Discharge Goal: Instruct PT/Family on Use of Mobility Equipment Outcome: Adequate for Discharge Goal: Instruct PT/Family on Safe Mobility Practices Description: Instruct Pt/Family on safe mobility practives including bed mobility, transfer training, w/c mobility training, and gait training when appropriate. Outcome: Adequate for Discharge Goal: Fall Risk Precautions Outcome: Adequate for Discharge Problem: Occupational Therapy Goal: Fall Risk Precautions Outcome: Adequate for Discharge Goal: Encourage Increased Activity Description: Encourage increased activity to promote independence with ADLs Outcome: Adequate for Discharge Goal: Instruct Pt/Family on Safe Functional Transfers Outcome: Adequate for Discharge Goal: Instruct Pt/Family on Upper Body ADL Description: Instruct pt/family on upper body ADL techniques and strategies Outcome: Adequate for Discharge Goal: Instruct Pt/Fmaily on Lower Body ADL Description: Instruct pt/family on lower body ADL techniques and strategies Outcome: Adequate for Discharge Goal: Instruct Pt/Family on Cognition Techniques and Strategies Outcome: Adequate for Discharge Problem: End-Stage Liver Disease Goal: I will be free from complications due to elevated ammonia level secondary to problem list condition Outcome: Adequate for Discharge Problem: Acute Pain Description: Patient's pain progressing toward patient's stated pain goal Goal: Patient displays improved well-being such as baseline levels for pulse, BP, respirations and relaxed muscle tone or body posture Outcome: Adequate for Discharge Goal: Patient will manage pain with the appropriate technique/intervention Description: Assess and monitor patient's pain using appropriate pain scale. Collaborate with interdisciplinary team and initiate plan and interventions as ordered. Re-assess patient's pain level 30-60 minutes after pain management intervention. Outcome: Adequate for Discharge Goal: Patient will reduce or eliminate use of analgesics Outcome: Adequate for Discharge Goal: Patients pain is managed to allow active participation in daily activities Outcome: Adequate for Discharge Goal: Patient verbalizes a reduction in pain level Outcome: Adequate for Discharge Goal: Discharge Pain Management Plan (Acute Pain) Outcome: Adequate for Discharge Problem: Hemodynamic Status Goal: Patient's vitals signs are stable Description: Assess and monitor patient's heart rate, rhythm, respiratory rate, peripheral pulses, capillary refill, color, body temperature, intake and output, labs and physical activity tolerance. Observe for signs of chest pain (note location, duration, severity, radiation and associated symptoms such as diaphoresis, nausea, indigestion). Monitor for signs and symptoms of heart failure (eg. shortness of breath, edema of feet/ankles/legs, rapid irregular heart rate, coughing, wheezing, white/pink blood tinged sputum, sudden weight gain, chest pain). Collaborate with interdisciplinary team and initiate plan and interventions as ordered. Outcome: Adequate for Discharge Problem: Nutrition Goal: Nutritional status is improving Description: Monitor and assess patient for malnutrition (ex- brittle hair, bruises, dry skin, paleskin and conjunctiva, muscle wasting, smooth red tongue, and disorientation). Collaborate with interdisciplinary team and initiate plan and interventions as ordered. Monitor patient's weight and dietary intake as ordered or per policy. Utilize nutrition screening tool and intervene per policy. Determine patient's food preferences and provide high-protein, high- caloric foods as appropriate. Outcome: Adequate for Discharge * Care Coordination - Sravani Gagnon - 08/19/2024 11:32 AM EDT MANNY was advised by MEREDITH Zabala that patient is need of home health. Sent in referral awaiting on acceptance. UPDATE: Patient discharged before home health was arranged. [phone] Called and spoke to Goyo she asked if referral can be manually faxed to [phone]. Waiting on a call back, Informed MEREDITH of this matter. Manny continue to follow... UPDATE: 08/20/24 1058AM- MANNY followed up with [facility] they were not able to accept patient. MEREDITH called to provide her the update Sravani Gagnon Chief Of Staff Doctor Office Mail Clerk Care Management Services [phone] * Home Health Care Note - Citlaly Padilla DO - 08/19/2024 10:44 AM EDT Images from the original note were not included. REFERRAL FOR HOME HEALTH SERVICES FORM Patient name: Blair Gilbert Patient : 1985 Age: 39 y.o. Gender: male SSN: [id number] [address]: [address] [place] [address] Phone number: There are no phone numbers on file. Patient emergency contact: Extended Emergency Contact Information Primary Emergency Contact: JustinAbdiaziz (next of kin) Mobile Relation: Spouse Secondary Emergency Contact: brown gilbert Mobile Relation: Brother Date of admission: 08/12/2024 Date of discharge: 08/19/2024 Attending provider: Leeanna Hahn MD Primary care physician: Enedina Mcguire NP Code status: Full Code Allergies: Allergies[1] Insurance Information Insurance Information [facility] Phone: -- Subscriber: Blair Gilbert Subscriber#: [id number] Group#: [id number] Precert#: -- Authorization#: [id number] Effective Date: -- Diagnoses Present on Admission Primary Diagnosis: Hepatorenal syndrome ([facility]) Discharge Diagnosis : Active Hospital Problems Diagnosis Date Noted Hepatorenal syndrome (CMS-HCC) [K76.7] 07/25/2024 Renal mass, left [N28.89] 08/18/2024 Alcohol use disorder [F10.90] 07/26/2024 Metabolic encephalopathy [G93.41] 07/26/2024 NADIYA (acute kidney injury) (CMS-HCC) [N17.9] 07/25/2024 Alcoholic cirrhosis of liver without ascites (CMS-HCC) [K70.30] 07/25/2024 Resolved Hospital Problems No resolved problems to display. Prognosis: fair Rehabilitation potential: fair Diet Diet/Nutrition Orders Diet Regular(7) Frequency: Effective Now Number of Occurrences: Until Specified Order Questions: Suicide/Behavior Risk Modification? No Dietary nutrition supplements Frequency: BID Number of Occurrences: Until Specified Order Questions: Select Supplement: Boost-1 kcal/ml supplement ([facility] only) As listed above Services Required Physical Therapy: Plan Treatment/Interventions: LE strengthening/ROM, Therapeutic Activity, Therapeutic Exercise, Endurance training, Patient/family training, Equipment eval/education, Gait training, Neuromuscular Reeducation, Stair Training PT Frequency: minimum 2x/week Recommendation Recommendation: Home PT Equipment Recommended: None Occupational Therapy: Plan Treatment Interventions: ADL retraining, Energy Conservation, IADL retraining, Patient/Family training, Therapeutic Activity, Functional transfer training, Activity Tolerance training OT Frequency: minimum 2x/week Recommendation Recommendation: Home OT Equipment Recommendations: Shower chair, Bedside Commode Bedside Commode Justification: Patient is confined to a single room and unable to safely ambulate to the bathroom Shower chair Justification: Patient is at risk to fall in shower environment Weight bearing status: full Needs 24 hour supervision due to cognitive impairment: No Discharge Medications Medications: Current Discharge Medication List START taking these medications Details cholestyramine-aspartame (PREVALITE) 4 gram Powd bulk Mix one scoop with 4-6 ounces of water and drink by mouth daily. Qty: 231 g, Refills: 0 zinc sulfate (ZINCATE) 50 mg zinc (220 mg) capsule Take 1 capsule (220 mg total) by mouth daily. Qty: 60 capsule, Refills: 0 potassium chloride (KLOR-CON M20) 20 MEQ tablet Take 1 tablet (20 mEq total) by mouth daily. Qty: 4 tablet, Refills: 0 sodium bicarbonate 650 MG tablet Take 2 tablets (1,300 mg total) by mouth 3 times a day. Qty: 90 tablet, Refills: 0 CONTINUE these medications which have CHANGED Details lactulose (CHRONULAC) 10 gram/15 mL solution Take 30 mLs (20 g total) by mouth 3 times a day as needed (goal 2-3 bowel movements a day). Qty: 2838 mL, Refills: 0 rifAXIMin (XIFAXAN) 550 mg Tab tablet Take 1 tablet (550 mg total) by mouth 2 times a day. Qty: 60 tablet, Refills: 0 Comments: [facility] [place] [id number] thiamine HCl (VITAMIN B-1) 100 MG tablet Take 1 tablet (100 mg total) by mouth daily. Qty: 30 tablet, Refills: 0 CONTINUE these medications which have NOT CHANGED Details levothyroxine (SYNTHROID) 75 MCG tablet Take 1 tablet (75 mcg total) by mouth every morning before breakfast. pantoprazole (PROTONIX) 40 MG tablet Take 1 tablet (40 mg total) by mouth every morning before breakfast. traMADoL (ULTRAM) 50 mg tablet Take 1 tablet (50 mg total) by mouth every 12 hours as needed for Pain (Pain). folic acid (FOLVITE) 1 MG tablet Take 1 tablet (1 mg total) by mouth daily. lidocaine (LIDODERM) 5 % Place 1 patch onto the skin daily. Apply patch for 12 hours and then remove patch and leave off for 12 hours. Qty: 30 patch, Refills: 0 nicotine (NICODERM CQ) 21 mg/[address] 1 patch onto the skin daily. Qty: 28 patch, Refills: 0 STOP taking these medications carvediloL (COREG) 12.5 MG tablet Comments: Reason for Stopping: NEXLIZET 180-10 mg Tab Comments: Reason for Stopping: tadalafiL (CIALIS) 10 MG tablet Comments: Reason for Stopping: topiramate (TOPAMAX) 25 MG tablet Comments: Reason for Stopping: Discharge Specific Orders Discharge specific orders: None required Isolation Patient Isolation Status None to display Vitals Patient Vitals for the past 4 hrs: BP Temp Temp src Pulse Resp SpO2 08/19/24 0756 99/51 97.5 ??F (36.4 ??C) Oral 66 16 100 % Equipment/Supplies Has shower chair already at home No current labs Ordering Physician: EZRA [LEEANNA HAHN MD] Physician Certification Further, I certify that my clinical findings support that this patient is homebound (i.e. absences from home require considerable and taxing effort and are for medical reasons or jainism services or infrequently or short duration when for other reasons) due to deconditioning it would be a taxing effort to receive outpatient services. My signature below is to certify that this patient is under my care and that I, or nurse practitioner, or a physician financial planning assistant working with me, had a bjoi-[id number]-thoc encounter with this is patient on: 08/19/2024 Follow-up Appointments and Post Hospital Discharge Physician Name Future Appointments Date Time Provider Department Center 09/02/2024 2:40 PM Gerri Peterson MD [facility] No follow-up provider specified. 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/Company Name and Contact Number: [employer]board [employer]boat [employer] Name and Telephone Number: Citlaly Padilla DO Internal Medicine PGY-1 [1] Allergies Allergen Reactions Adhesive Itching and Rash Tegaderm adhesive on Ivs, pt states its tolerable Duloxetine Other (See Comments) Became Manic * Care Coordination - Lorrie Rogers - 08/18/2024 4:57 PM EDT [facility] Case Management/Social Work Department Progress Note Patient Information Patient Name: Blair Gilbert Hospital day: 6 Inpatient/Observation: Inpatient Level of Care: Med/surg Admit date: 08/12/2024 Admission diagnosis: Chronic liver failure without hepatic coma (CMS-HCC) [K72.10] Cirrhosis (CMS-HCC) [K74.60] PMH: has a past medical history of Alcoholic cirrhosis of liver (CMS-HCC), Alcoholic hepatitis, Esophageal varices (CMS-HCC), Hepatorenal syndrome (CMS- HCC), Hypertension, Other hyperlipidemia (07/26/2024), Renal cell carcinoma (CMS-HCC), Thrombocytopenia (CMS-HCC), and Thyroid disease. PCP: Enedina Mcguire NP Home Pharmacy: [facility] [address] [place], [place] [address] [address] [address] [facility] [address] [place] [id number] Medical Insurance Coverage: Payor: [facility] / Plan: [facility] / Product Type: *No Producttype* / Other Pertinent Information SW attended rounds today and completed chart review. Per rounds, patient is not medically ready. SWstopped by patient's room today to discuss HHC, was informed it was best to talk with patient's spouse regarding. SW called patient's spouse, who shared there isn't a preference for HHC, she is okay with HHC referrals being sent out to see who can accept. SW shared current DME recommendations. Patient already has a shower chair, patient's spouse shared she does not think he will need the bedside commode at home Discharge Plan Anticipated discharge plan: Home w/HHC Anticipated discharge date: 08/20 CM/SW will continue to follow and remain available for discharge planning needs. LORRIE ROGERS MSW, DAY CARE ATTENDANT * Plan of Care - Melissa Avina RN - 08/18/2024 3:46 PM EDT Problem: Knowledge Deficit Goal: Patient/family/caregiver demonstrates understanding of disease process, treatment plan, medications, and discharge instructions Description: Complete learning assessment and assess knowledge base. Outcome: Progressing Problem: Potential for Compromised Skin Integrity Goal: Skin integrity is maintained or improved Description: Assess and monitor skin integrity. Identify patients at risk for skin breakdown on admission and per policy. Collaborate with interdisciplinary team and initiate plans and interventions as needed. Outcome: Progressing Goal: Nutritional status is improving Description: Monitor and assess patient for malnutrition (ex- brittle hair, bruises, dry skin, paleskin and conjunctiva, muscle wasting, smooth red tongue, and disorientation). Collaborate with interdisciplinary team and initiate plan and interventions as ordered. Monitor patient's weight and dietary intake as ordered or per policy. Utilize nutrition screening tool and intervene per policy. Determine patient's food preferences and provide high-protein, high- caloric foods as appropriate. Outcome: Progressing Problem: Incontinence Goal: Perineal skin integrity is maintained or improved Description: Assess genitourinary system, perineal skin, labs (urinalysis), and history of incontinence to include past management, aggravating, and alleviating factors. Collaborate with interdisciplinary team and initiate plans and interventions as needed. Outcome: Progressing Problem: Patient will remain free of injury d/t fall Goal: High Fall Risk Precautions Outcome: Progressing Goal: Additional High Fall Risk Precautions (consider the following) Outcome: Progressing * Plan of Care - Geovanna Spencer RN - 08/15/2024 7:37 PM EDT Problem: Potential for Compromised Skin Integrity Goal: Skin integrity is maintained or improved Description: Assess and monitor skin integrity. Identify patients at risk for skin breakdown on admission and per policy. Collaborate with interdisciplinary team and initiate plans and interventions as needed. Outcome: Progressing Goal: Nutritional status is improving Description: Monitor and assess patient for malnutrition (ex- brittle hair, bruises, dry skin, paleskin and conjunctiva, muscle wasting, smooth red tongue, and disorientation). Collaborate with interdisciplinary team and initiate plan and interventions as ordered. Monitor patient's weight and dietary intake as ordered or per policy. Utilize nutrition screening tool and intervene per policy. Determine patient's food preferences and provide high-protein, high- caloric foods as appropriate. Outcome: Progressing Skin care plan continued, site care performed, minimal linens placed underneath and PT turned everytwo hours. Problem: Patient will remain free of injury d/t fall Goal: High Fall Risk Precautions Outcome: Progressing Goal: Additional High Fall Risk Precautions (consider the following) Outcome: Progressing Fall prevention continued, bed wheels locked, side rails up x3, bed in lowest position, bed alarm on, room door open and lights on for ease of visibility. Problem: Knowledge Deficit Goal: Patient/family/caregiver demonstrates understanding of disease process, treatment plan, medications, and discharge instructions Description: Complete learning assessment and assess knowledge base. Outcome: Progressing Problem: Incontinence Goal: Perineal skin integrity is maintained or improved Description: Assess genitourinary system, perineal skin, labs (urinalysis), and history of incontinence to include past management, aggravating, and alleviating factors. Collaborate with interdisciplinary team and initiate plans and interventions as needed. Outcome: Progressing * Care Coordination - RONALOD Toure - 08/15/2024 3:11 PM EDT [facility] Case Management/Social Work Department Progress Note Patient Information Patient Name: Blair Glibert Hospital day: 3 Inpatient/Observation: Inpatient Level of Care: ICU Admit date: 08/12/2024 Admission diagnosis: Chronic liver failure without hepatic coma (CMS-HCC) [K72.10] Cirrhosis (CMS-HCC) [K74.60] PMH: has a past medical history of Alcoholic cirrhosis of liver (CMS-HCC), Alcoholic hepatitis, Esophageal varices (CMS-HCC), Hepatorenal syndrome (CMS- HCC), Hypertension, Other hyperlipidemia (07/26/2024), Renal cell carcinoma (CMS-HCC), Thrombocytopenia (CMS-HCC), and Thyroid disease. PCP: Enedina Mcguire NP Home Pharmacy: [facility] [address] [place] [id number] [facility] [address] [facility] [id number] Medical Insurance Coverage: Payor: [facility] / Plan: [facility] / Product Type: *No Producttype* / Other Pertinent Information The therapy team assessed the patient and provided the following recommendations: home therapy, rolling walker, shower chair, and bedside commode. The patient is currently confused, so I discussed the recommendations with his . I provided her with a list of home health agencies. She reports that the patient has a shower chair. She feels the patient will be agreeable to following therapy's recommendations. Discharge Plan Anticipated discharge plan: home with home care Anticipated discharge date: 08/29/24 CM/SW will continue to follow and remain available for discharge planning needs. Alycia DELACRUZ, MARKETING STRATEGY LEAD Social Work Chief Of Staff Doctor * Plan of Care - Beatriz Kolb RN - 08/14/2024 7:23 PM EDT Problem: Potential for Compromised Skin Integrity Goal: Skin integrity is maintained or improved Description: Assess and monitor skin integrity. Identify patients at risk for skin breakdown on admission and per policy. Collaborate with interdisciplinary team and initiate plans and interventions as needed. Outcome: Progressing Note: Pt at high risk for compromised skin integrity. Pt turned and repositioned Q2. Assessed for incontinence and preventative barriers applied to skin prn. Problem: Patient will remain free of injury d/t fall Goal: High Fall Risk Precautions 08/14/20241922 by Beatriz Kolb RN Outcome: Progressing Note: Bed in lowest position, bed alarm on and side rails up per policy. Non- slip socks and pt arm band on. Call light and bedside table within reach as needed. 08/14/20241921 by Beatriz Kolb RN Note: Bed in lowest position, bed alarm on and side rails up per policy. Non- slip socks and pt arm band on. Call light and bedside table within reach as needed. * Care Coordination - NUBIA Monge - 08/14/2024 12:45 PM EDT [facility] Case Management/Social Work Department Progress Note Patient Information Patient Name: Blair Gilbert Hospital day: 2 Inpatient/Observation: Inpatient Level of Care: MICU Admit date: 08/12/2024 Admission diagnosis: Chronic liver failure without hepatic coma (CMS-HCC) [K72.10] Cirrhosis (CMS-HCC) [K74.60] PMH: has a past medical history of Alcoholic cirrhosis of liver (CMS-HCC), Alcoholic hepatitis, Esophageal varices (CMS-HCC), Hepatorenal syndrome (CMS- HCC), Hypertension, Other hyperlipidemia (07/26/2024), Renal cell carcinoma (CMS-HCC), Thrombocytopenia (CMS-HCC), and Thyroid disease. PCP: No Pcp Home Pharmacy: [facility] [address] [facility] [address] [place] [id number] [address] [facility] [address] [facility] [id number] Medical Insurance Coverage: Payor: [facility] / Plan: [facility] / Product Type: *No Producttype* / Other Pertinent Information Ingot Caster met with MICU team for daily rounds and completed chart review. Patient is not anticipated to be medically ready today. Pt is currently ICU LOC, potential need for dialysis and decreased mental status today. SW dropped off a letter for his employer to the room. Discharge Plan Anticipated discharge plan: TBD, pending patients medical progress and needs. Anticipated discharge date: 08/20/24 CM/SW will continue to follow and remain available for discharge planning needs. NUBIA Monge [facility] [phone] * Plan of Care - Chelsy Matson RN - 08/14/2024 7:43 AM EDT Patient safety maintained with emphasis on fall risk. Patient's daily cares achieved, skin condition maintained, and nutrition maintained. Working on additional measures to improve patient comfort and progression toward discharge goals. Problem: Knowledge Deficit Goal: Patient/family/caregiver demonstrates understanding of disease process, treatment plan, medications, and discharge instructions Description: Complete learning assessment and assess knowledge base. Outcome: Progressing Problem: Potential for Compromised Skin Integrity Goal: Skin integrity is maintained or improved Description: Assess and monitor skin integrity. Identify patients at risk for skin breakdown on admission and per policy. Collaborate with interdisciplinary team and initiate plans and interventions as needed. Outcome: Progressing Goal: Nutritional status is improving Description: Monitor and assess patient for malnutrition (ex- brittle hair, bruises, dry skin, paleskin and conjunctiva, muscle wasting, smooth red tongue, and disorientation). Collaborate with interdisciplinary team and initiate plan and interventions as ordered. Monitor patient's weight and dietary intake as ordered or per policy. Utilize nutrition screening tool and intervene per policy. Determine patient's food preferences and provide high-protein, high- caloric foods as appropriate. Outcome: Progressing Problem: Incontinence Goal: Perineal skin integrity is maintained or improved Description: Assess genitourinary system, perineal skin, labs (urinalysis), and history of incontinence to include past management, aggravating, and alleviating factors. Collaborate with interdisciplinary team and initiate plans and interventions as needed. Outcome: Progressing Problem: Patient will remain free of injury d/t fall Goal: High Fall Risk Precautions Outcome: Progressing * Plan of Care - Beatriz Kolb RN - 08/13/2024 7:20 PM EDT Problem: Potential for Compromised Skin Integrity Goal: Skin integrity is maintained or improved Description: Assess and monitor skin integrity. Identify patients at risk for skin breakdown on admission and per policy. Collaborate with interdisciplinary team and initiate plans and interventions as needed. Outcome: Progressing Note: Pt at high risk for compromised skin integrity. Pt turned and repositioned Q2. Assessed for incontinence and preventative barriers applied to skin prn. Goal: Nutritional status is improving Description: Monitor and assess patient for malnutrition (ex- brittle hair, bruises, dry skin, paleskin and conjunctiva, muscle wasting, smooth red tongue, and disorientation). Collaborate with interdisciplinary team and initiate plan and interventions as ordered. Monitor patient's weight and dietary intake as ordered or per policy. Utilize nutrition screening tool and intervene per policy. Determine patient's food preferences and provide high-protein, high- caloric foods as appropriate. Outcome: Progressing Problem: Patient will remain free of injury d/t fall Goal: High Fall Risk Precautions Outcome: Progressing Note: Bed in lowest position, bed alarm on and side rails up per policy. Non- slip socks and pt arm band on. Call light and bedside table within reach as needed. * Plan of Care - Mis Mcfadden RN - 08/13/2024 8:17 AM EDT Problem: Potential for Compromised Skin Integrity Goal: Skin integrity is maintained or improved Description: Assess and monitor skin integrity. Identify patients at risk for skin breakdown on admission and per policy. Collaborate with interdisciplinary team and initiate plans and interventions as needed. Outcome: Progressing Note: Skin is maintained. Intervention: Turn patient Note: Pt encouraged to turn every two hours. Intervention: Keep skin clean and dry Note: Skin is clean and dry. Intervention: Alternate a full bath with partial baths for elderly Description: Bath water should be luke warm. Note: Full bath was given. * Plan of Care - Izzy Donovan RN - 08/13/2024 5:04 AM EDT Problem: Knowledge Deficit Goal: Patient/family/caregiver demonstrates understanding of disease process, treatment plan, medications, and discharge instructions Description: Complete learning assessment and assess knowledge base. Outcome: Progressing Problem: Potential for Compromised Skin Integrity Goal: Skin integrity is maintained or improved Description: Assess and monitor skin integrity. Identify patients at risk for skin breakdown on admission and per policy. Collaborate with interdisciplinary team and initiate plans and interventions as needed. Outcome: Progressing Goal: Nutritional status is improving Description: Monitor and assess patient for malnutrition (ex- brittle hair, bruises, dry skin, paleskin and conjunctiva, muscle wasting, smooth red tongue, and disorientation). Collaborate with interdisciplinary team and initiate plan and interventions as ordered. Monitor patient's weight and dietary intake as ordered or per policy. Utilize nutrition screening tool and intervene per policy. Determine patient's food preferences and provide high-protein, high- caloric foods as appropriate. Outcome: Progressing Problem: Incontinence Goal: Perineal skin integrity is maintained or improved Description: Assess genitourinary system, perineal skin, labs (urinalysis), and history of incontinence to include past management, aggravating, and alleviating factors. Collaborate with interdisciplinary team and initiate plans and interventions as needed. Outcome: Progressing Problem: Patient will remain free of injury d/t fall Goal: High Fall Risk Precautions Outcome: Progressing Goal: Additional High Fall Risk Precautions (consider the following) Outcome: Progressing * Plan of Care - Dennis Muse RN - 08/13/2024 12:03 AM EDT Problem: Knowledge Deficit Goal: Patient/family/caregiver demonstrates understanding of disease process, treatment plan, medications, and discharge instructions Description: Complete learning assessment and assess knowledge base. Note: Pt at risk for compromised skin integrity. Repositioned with pillows and assessed for incontinence every 2 hours. Monitoring for pressure areas. Patient remains on low air loss bed. Heels elevated off bed with pillow and/or waffle boots. Will continue to monitor and consult skin care if necessary. Problem: Patient will remain free of injury d/t fall Goal: High Fall Risk Precautions Note: The patient has a High (45-125) Prado Fall Score. Nursing interventions include: Fertile patient to call light and room environment. Keep call light within patient's reach. Eliminate obstacles and clutter. Hourly rounding. Answer call lights promptly. Bedside table and belongings within reach. Door open, room well lit. Non-skin footwear in place. Bed locked and in lowest position. Evaluate response to new medications. Safe handling of patient during transfers. Place yellow wristband on patient. Educate family on tips to prevent falls. Encourage family members to stay with patient. Remain with patient when he/she is in the bathroom or using the bedside commode. Activate bed alarm. Red fall risk sign placed outside patient room. Place patient in room as close to nursing station as possible. Evaluate need for sitter. Family and patient education on falls prevention provided and taught. * ACP (Advance Care Planning) - Edwige Bernard MD - 08/12/2024 10:02 PM EDT Medical Orders for Life-Sustaining Treatment Discussion In the event of a medical emergency, the patient has voiced these wishes: Cardiopulmonary Resuscitation (CPR) If there is no pulse and no breathing: Attempt resuscitation/CPR with full treatment and intervention. Medical Interventions If there is a pulse and/or breathing: Full intervention including intubation, mechanical ventilation, cardioversion, and transfer to intensive care as indicated. These wishes were discussed with Patient and his Staff present for discussion included: resident Edwige Bernard MD Time spent in conversation: 5 minutes documented in this encounter Plan of Treatment Upcoming Encounters Date Type Department Care Team (Late st Contact Info) Description 12/05/2024 8:01 AM EDT Hospital Encounter [facility] ENDOSCOPY [address] [place] [address] Chris Orosco MD [address] [place] [address] 12/05/2024 8:01 AM EDT - 12/05/2024 8:31 AM EDT Surgery [facility] ENDOSCOPY [address] [place] [id number] Chris Orosco MD [address] [place] [id number] EGD Scheduled Procedures Name Priority Associated Diagnoses Date/Ti me EGD Cirrhosis of liver with ascites, unspecified hepatic cirrhosis type ([facility]) 12/05/2024 8:01 AM EDT documented as of this encounter Procedures Procedure Name Priority Date/Time Associated Diagnosis Comments PHOSPHATIDYLETHANOL CONFIRMATION, B Routine 08/19/2024 9:45 AM EDT HEPATIC FUNCTION PANEL Routine 2:59 AM EDT RENAL FUNCTION PANEL W/EGFR STAT 08/19/2024 2:59 AM EDT PROTIME-INR Routine 08/19/2024 2:59 AM EDT CBC Routine 08/19/2024 2:59 AM EDT MAGNESIUM STAT 08/19/2024 2:59 AM EDT RENAL FUNCTION PANEL W/EGFR STAT 08/18/2024 11:01 PM EDT MAGNESIUM STAT 08/18/2024 11:01 PM EDT RENAL FUNCTION PANEL W/EGFR STAT 08/18/2024 3:17 PM EDT MAGNESIUM STAT 08/18/2024 3:17 PM EDT PHOSPHATIDYLETHANOL CONFIRMATION, B Routine 08/18/2024 9:59 AM EDT VENOUS BLOOD GAS, LINE/SYRINGE Routine 08/18/2024 4:58 AM EDT HEPATIC FUNCTION PANEL Routine 4:57 AM EDT RENAL FUNCTION PANEL W/EGFR STAT 08/18/2024 4:57 AM EDT PROTIME-INR Routine 08/18/2024 4:57 AM EDT CBC Routine 08/18/2024 4:57 AM EDT PHOSPHORUS Routine 08/18/2024 4:57 AM EDT MAGNESIUM STAT 08/18/2024 4:57 AM EDT RENAL FUNCTION PANEL W/EGFR STAT 08/17/2024 11:53 PM EDT MAGNESIUM STAT 08/17/2024 11:53 PM EDT RENAL FUNCTION PANEL W/EGFR STAT 08/17/2024 4:01 PM EDT MAGNESIUM STAT 08/17/2024 4:01 PM EDT HEPATIC FUNCTION PANEL Add-On 9:03 AM EDT AMMONIA Timed 08/17/2024 9:03 AM EDT RENAL FUNCTION PANEL W/EGFR STAT 08/17/2024 6:47 AM EDT CBC STAT 08/17/2024 6:47 AM EDT MAGNESIUM STAT 08/17/2024 6:47 AM EDT RENAL FUNCTION PANEL W/EGFR STAT 08/16/2024 11:31 PM EDT MAGNESIUM STAT 08/16/2024 11:31 PM EDT RENAL FUNCTION PANEL W/EGFR STAT 08/16/2024 5:19 PM EDT MAGNESIUM STAT 08/16/2024 5:19 PM EDT RENAL FUNCTION PANEL W/EGFR STAT 08/16/2024 8:49 AM EDT PROTIME-INR STAT 08/16/2024 8:49 AM EDT MAGNESIUM STAT 08/16/2024 8:49 AM EDT HEPATIC FUNCTION PANEL STAT 7:18 AM EDT RENAL FUNCTION PANEL W/EGFR STAT 08/16/2024 7:18 AM EDT CBC STAT 08/16/2024 7:18 AM EDT MAGNESIUM STAT 08/16/2024 7:18 AM EDT AMMONIA STAT 08/16/2024 7:18 AM EDT RENAL FUNCTION PANEL W/EGFR Routine 08/15/2024 10:41 PM EDT MAGNESIUM STAT 08/15/2024 10:41 PM EDT CARISA RHYTHM STRIP - SCAN 08/16/19 25 7:21 PM EDT RENAL FUNCTION PANEL W/EGFR Routine 08/15/2024 2:26 PM EDT MAGNESIUM STAT 08/15/2024 2:26 PM EDT CARISA RHYTHM STRIP - SCAN 08/16/19 25 1:05 PM EDT LIPASE Routine 08/15/2024 10:35 AM EDT PREPARE PLATELETS, LEUKOREDUCED Routine 08/15/2024 6:17 AM EDT HEPATIC FUNCTION PANEL Routine 5:55 AM EDT RENAL FUNCTION PANEL W/EGFR Routine 08/15/2024 5:55 AM EDT PROTIME-INR Routine 08/15/2024 5:55 AM EDT CBC Routine 08/15/2024 5:55 AM EDT MAGNESIUM STAT 08/15/2024 5:55 AM EDT AMMONIA Routine 08/15/2024 5:55 AM EDT RENAL FUNCTION PANEL W/EGFR Routine 08/14/2024 11:18 PM EDT MAGNESIUM Routine 08/14/2024 11:18 PM EDT RENAL FUNCTION PANEL W/EGFR Routine 08/14/2024 3:37 PM EDT CBC STAT 08/14/2024 3:37 PM EDT MAGNESIUM STAT 08/14/2024 3:37 PM EDT XR PORTABLE FEEDING TUBE X-RAY STAT 08/14/2024 2:11 PM EDT PARACENTESIS Routine 08/14/2024 2:05 PM EDT CARISA RHYTHM STRIP - SCAN 08/15/19 1:56 PM EDT BODY FLUID CULTURE PLUS STAIN Routine 08/14/2024 12:31 PM EDT BODY FLUID CELL COUNT Routine 08/14/2024 12:31 PM EDT TRIGLYCERIDES, BODY FLUIDS Routine 08/14 12:31 PM EDT PROTEIN, BODY FLUID Routine 08/14/2024 1 2:31 PM EDT AMYLASE, BODY FLUID Routine 08/14/2024 1 2:31 PM EDT ALBUMIN, FLUID Routine 08/14/2024 12:31 PM EDT MAGNESIUM STAT 08/14/2024 9:33 AM EDT AMMONIA Routine 08/14/2024 9:33 AM EDT VENOUS BLOOD GAS, LINE/SYRINGE STAT 08/14/2024 9:28 AM EDT HEPATIC FUNCTION PANEL Routine 5:53 AM EDT RENAL FUNCTION PANEL W/EGFR Routine 08/14/2024 5:53 AM EDT PROTIME-INR Routine 08/14/2024 5:53 AM EDT CBC Routine 08/14/2024 5:53 AM EDT MAGNESIUM Routine 08/14/2024 5:53 AM EDT VENOUS BLOOD GAS, LINE/SYRINGE Routine 08/14/2024 3:15 AM EDT RENAL FUNCTION PANEL W/EGFR STAT 08/14/2024 2:03 AM EDT TRANSFUSE PLATELETS Routine 08/14/2024 1 :40 AM EDT ABO/RH Routine 08/14/2024 12:35 AM EDT ANTIBODY SCREEN Routine 08/14/2024 12:35 AM EDT CYTOLOGY, PERITONEAL FLUID Routine 08/14 12:00 AM EDT RENAL FUNCTION PANEL W/EGFR Routine 08/13/2024 8:07 PM EDT CBC Routine 08/13/2024 8:07 PM EDT MAGNESIUM STAT 08/13/2024 8:07 PM EDT CARISA RHYTHM STRIP - SCAN 08/14/19 7:35 PM EDT XR PORTABLE CHEST STAT 08/13/2024 3:3 6 PM EDT VENOUS BLOOD GAS, LINE/SYRINGE STAT 08/13/2024 3:17 PM EDT US DUPLEX UQZ-BHEBYO-TQEALOS COMPLETE Routine 08/13/2024 3:03 PM EDT US ABDOMEN COMPLETE STAT 08/13/2024 3 :03 PM EDT CENTRAL LINE Routine 08/13/2024 1:37 PM EDT RENAL FUNCTION PANEL W/EGFR Routine 08/13/2024 12:48 PM EDT MAGNESIUM Routine 08/13/2024 12:48 PM EDT CARISA RHYTHM STRIP - SCAN 08/14/19 7:58 AM EDT URINALYSIS, MICROSCOPIC STAT 08/14/19 4:51 AM EDT URINALYSIS-MACROSCOPIC W/REFLEX TO MICROSCOPIC STAT 08/13/2024 4:51 AM EDT HEPATIC FUNCTION PANEL Routine 4:51 AM EDT LACTIC ACID Routine 08/13/2024 4:51 AM EDT RENAL FUNCTION PANEL W/EGFR Routine 08/13/2024 4:51 AM EDT UREA NITROGEN, URINE Routine 08/13/2024 4:51 AM EDT SODIUM, URINE, RANDOM Routine 08/13/2024 4:51 AM EDT CREATININE, URINE, RANDOM Routine 2024 4:51 AM EDT DIFFERENTIAL Routine 08/13/2024 4:51 AM EDT PROTIME-INR Routine 08/13/2024 4:51 AM EDT CBC Routine 08/13/2024 4:51 AM EDT MAGNESIUM Routine 08/13/2024 4:51 AM EDT CARISA RHYTHM STRIP - SCAN 08/14/19 25 12:26 AM EDT HEPATIC FUNCTION PANEL STAT 12:08 AM EDT PROTIME-INR STAT 08/13/2024 12:08 AM EDT CBC STAT 08/13/2024 12:08 AM EDT PHOSPHORUS STAT 08/13/2024 12:08 AM EDT MAGNESIUM STAT 08/13/2024 12:08 AM EDT VENOUS BLOOD GAS, LINE/SYRINGE STAT 08/12/2024 11:32 PM EDT LACTIC ACID, VENOUS, WHOLE BLOOD STAT 08/12/2024 11:32 PM EDT RENAL FUNCTION PANEL W/EGFR STAT 08/12/2024 10:52 PM EDT BLOOD CULTURE-PERIPHERAL STAT 025 8:21 PM EDT BLOOD CULTURE-PERIPHERAL STAT 025 7:57 PM EDT BEDSIDE FOCUSED TRANSTHORACIC ECHO Routine 08/12/2024 7:08 PM EDT AMMONIA STAT 08/12/2024 6:51 PM EDT XR PORTABLE CHEST TAMIR 08/12/2024 6:4 6 PM EDT BEDSIDE FAST ULTRASOUND ABDOMEN Routine 08/12/2024 6:34 PM EDT VENOUS BLOOD GAS, LINE/SYRINGE STAT 08/12/2024 6:29 PM EDT HEPATIC FUNCTION PANEL STAT 6:29 PM EDT LACTIC ACID, VENOUS, WHOLE BLOOD STAT 08/12/2024 6:29 PM EDT DIFFERENTIAL STAT 08/12/2024 6:29 PM EDT PROTIME-INR STAT 08/12/2024 6:29 PM EDT CBC STAT 08/12/2024 6:29 PM EDT BASIC METABOLIC PANEL STAT 08/12/2024 6:29 PM EDT documented in this encounter Results * Phosphatidylethanol Confirmation, B (08/19/2024 9:45 AM EDT) PETH 16:0/18.1 (POPETH) 11 Cutoff: 10 ng/mL 08/21/2024 11:37 PM EDT [facility] Comment: Phosphatidylethanol (PEth) homologues result interpretation PEth 16:0/18:1 (POPEth) Less than 10 ng/mL: Not detected 10 - 19 ng/mL: Abstinence or light alcohol consumption (<2 drinks per day for several days a week) 20 - 200 ng/mL: Moderate alcohol consumption (up to 4 drinks per day for several days a week) Greater than 200 ng/mL: Heavy alcohol consumption or chronic alcohol use (at least 4 drinks per day several days a week) (Reference: Zhanna Grayson and Declan Phillips 2018 J. Forensic Sci) PETH 16:0/18.2 (PLPETH) <10 Cutoff: 10 ng/mL 08/21/2024 11:37 PM EDT [facility] Comment: PEth 16:0/18:2 (PLPEth) Reference ranges are not well established PEth Interpretation Positive. 08/21 11:37 PM EDT [facility] Comment: ADDITIONAL INFORMATION This report is intended for use in clinical monitoring and management of patients. It is not intended for use in employment-related testing. This test was developed and its performance characteristics determined by [facility] in a manner consistent with CLIA requirements. This test has not been cleared or approved by the U.S. Food and Drug Administration. Test Performed by: [facility] [place] [facility] [id number] [place] [address] Health And Wellness Advisor: Kathy Ortiz Ph.D.; CLIA# [id number] Whole Blood 08/19/2024 9:45 AM EDT 08/21/2024 11:37 PM EDT Kiet Lei MD LAB BLOOD ORDERABLES Final Resul t Performing Organization Address [facility]/ZIP Co de Phone Number [facility] [address] * Magnesium (08/19/2024 2:59 AM EDT) Magnesium 1.9 1.5 - 2.5 mg/dL 08/19/2024 3:38 AM EDT [facility] Plasma 08/19/2024 2:59 AM EDT 08/19/2024 3:09 AM EDT Bárbara Alatorre CNP LAB BLOOD ORDERABLES Final Resu lt Performing Organization Address City/[facility]/ZIP Co de Phone Number [facility] [address] [facility]. [address] * (ABNORMAL) Renal Function Panel w/EGFR (08/19/2024 2:59 AM EDT) Sodium 134 133 - 146 mmol/L 08/19/2024 3:38 AM EDT [facility] Potassium 3.2(L) 3.5 - 5.3 mmol/L 08/19/2024 3:38 AM EDT [facility] Chloride 110 98 - 110 mmol/L 08/19/2024 3:38 AM EDT [facility] CO2 15(L) 21 - 33 mmol/L 08/19/2024 3:38 AM EDT [facility] Anion Gap 9 3 - 16 mmol/L 08/19/2024 3:38 AM EDT [facility] BUN 39(H) 7 - 25 mg/dL 08/19/2024 3:38 AM EDT [facility] Creatinine 2.69(H) 0.60 - 1.30 mg/dL 08/19/2024 3:38 AM EDT [facility] Glucose 126(H) 70 - 100 mg/dL 08/19/2024 3:38 AM EDT [facility] Calcium 9.0 8.6 - 10.3 mg/dL 08/19/2024 3:38 AM EDT [facility] Phosphorus 2.8 2.1 - 4.7 mg/dL 08/19/2024 3:38 AM EDT [facility] Albumin 3.2(L) 3.5 - 5.7 g/dL 08/19/2024 3:38 AM EDT [facility] Osmolality, Calculated 289 278 - 305 mOsm/kg 08/19[facility]24 [facility] EGFR 30 08/19/[facility]24 [facility] Comment:As of 2021, the estimated GFR is calculated using the 2020 Chronic Kidney Disease Epidemiology Collaboration (CKD-EPI) equation. In line with the NKF-ASN Task Force Recommendations, this equation does not include a coefficient for race. A single eGFR value is calculated for each patient. The reference interval is >60 mL/min/1.73m2. eGFR values greater than 90 will be reported as >90mL/min/1.73m2. Reference: Luis Eduardo C, Talia M, Olivia DC, Emerita ND, Madelyn CA, Felicia LA, et al. A Unifying Approach for GFR Estimation: Recommendations of the NKF-ASN Task Force on Reassessing the inclusion of Race in Diagnosing Kidney Disease. Am J Kidney Dis. 2021. Plasma 08/19/2024 2:59 AM EDT 08/19/2024 3:09 AM EDT us Bárbara Alatorre CNP LAB BLOOD ORDERABLES Final Resu lt Performing Organization Address [facility] Co de Phone Number [facility] [address] [facility]. [address] * (ABNORMAL) Hepatic Function Panel (08/19/2024 2:59 AM EDT) Total Bilirubin 34.4(H) 0.0 - 1.5 mg/dL 08/19/2024 3:49 AM EDT [facility] Bilirubin, Direct 22.90(H) 0.00 - 0.40 mg/dL 08/19/2024 3:49 AM EDT [facility] AST 65(H) 13 - 39 U/L 08/19/2024 3:49 AM EDT [facility] ALT 32 7 - 52 U/L 08/19/2024 3:49 AM EDT [facility] Alkaline Phosphatase 86 36 - 125 U/L 08/19/2024 3:49 AM EDT [facility] Total Protein 4.3(L) 6.4 - 8.9 g/dL 08/19/2024 3:49 AM EDT [facility] Albumin 3.0(L) 3.5 - 5.7 g/dL 08/19/2024 3:49 AM EDT [facility] Bilirubin, Indirect 11.50(H) 0.00 - 1.10 mg/dL 08/19/2024 3:49 AM EDT [facility] Plasma 08/19/2024 2:59 AM EDT 08/19/2024 3:09 AM EDT us Flako Key MD LAB BLOOD ORDERABLES Final Re sult Performing Organization Address City/[facility]/ZIP Co de Phone Number [facility] [address] [facility] * (ABNORMAL) CBC, AM (08/19/2024 2:59 AM EDT) WBC 6.2 3.8 - 10.8 10E3/uL 08/19/2024 3:26 AM EDT [facility] RBC 2.78(L) 4.20 - 5.80 10E6/uL 08/19/2024 3:26 AM EDT [facility] Hemoglobin 9.8(L) 13.2 - 17.1 g/dL 08/19/2024 3:26 AM EDT [facility] Hematocrit 27.3(L) 38.5 - 50.0 % 08/19/2024 3:26 AM EDT [facility] MCV 98.4 80.0 - 100.0 fL 08/19/2024 3:26 AM EDT [facility] MCH 35.2(H) 27.0 - 33.0 pg 08/19/2024 3:26 AM EDT [facility] MCHC 35.8 32.0 - 36.0 g/dL 08/19/2024 3:26 AM EDT [facility] RDW 21.6(H) 11.0 - 15.0 % 08/19/2024 3:26 AM EDT [facility] Platelets 33(L) 140 - 400 10E3/uL 08/19/2024 3:26 AM EDT [facility] Comment: Specimen checked for clots. None detected. Slide Reviewed for PLT Clumps. None Seen. MPV 8.6 7.5 - 11.5 fL 08/19/2024 3:26 AM EDT [facility] Whole Blood 08/19/2024 2:59 AM EDT 08/19/2024 3:09 AM EDT us Flako Key MD LAB BLOOD ORDERABLES Final Re sult [facility] [address] [place] [address], [facility] * (ABNORMAL) Protime-INR (08/19/2024 2:59 AM EDT) Protime 23.4(H) 12.1 - 15.1 seconds 08/19/2024 3:26 AM EDT [facility] INR 2.0(H) 0.9 - 1.1 08/19/2024 3:26 AM EDT [facility] Comment: RECOMMENDED THERAPEUTIC RANGES USING INR : Stable oral anticoagulant therapy: 2.0 - 3.0 Mechanical prosthetic heart valve: 2.5 - 3.5 Recurrent acute myocardial infarction: 2.5 - 3.5 Plasma 08/19/2024 2:59 AM EDT 08/19/2024 3:09 AM EDT Flako Key MD LAB BLOOD ORDERABLES Final Re sult Performing Organization Address [facility]/ZIP Co de Phone Number [facility] [address] [facility]. [address] * Magnesium (08/18/2024 11:01 PM EDT) Magnesium 1.8 1.5 - 2.5 mg/dL 08/18/2024 11:34 PM EDT [facility] Plasma 08/18/2024 11:0 1 PM EDT 08/18/2024 11:12 PM EDT Bárbara Alatorre CNP LAB BLOOD ORDERABLES Final Resu lt Performing Organization Address [facility] de Phone Number [facility] [address] [facility] * (ABNORMAL) Renal Function Panel w/EGFR (08/18/2024 11:01 PM EDT) Sodium 135 133 - 146 mmol/L 08/18/2024 11:34 PM EDT [facility] Potassium 3.2(L) 3.5 - 5.3 mmol/L 08/18/2024 11:34 PM EDT [facility] Chloride 110 98 - 110 mmol/L 08/18/2024 11:34 PM EDT [facility] CO2 16(L) 21 - 33 mmol/L 08/18/2024 11:34 PM EDT [facility] Anion Gap 9 3 - 16 mmol/L 08/18/2024 11:34 PM EDT [facility] BUN 40(H) 7 - 25 mg/dL 08/18/2024 11:34 PM EDT [facility] Creatinine 2.72(H) 0.60 - 1.30 mg/dL 08/18/2024 11:34 PM EDT [facility] Glucose 124(H) 70 - 100 mg/dL 08/18/2024 11:34 PM EDT [facility] Calcium 9.0 8.6 - 10.3 mg/dL 08/18/2024 11:34 PM EDT [facility] Phosphorus 2.7 2.1 - 4.7 mg/dL 08/18/2024 11:34 PM EDT [facility] Albumin 3.2(L) 3.5 - 5.7 g/dL 08/18/2024 11:34 PM EDT [facility] Osmolality, Calculated 291 278 - 305 mOsm/kg 08/18/2024 11:34 PM EDT [facility] EGFR 29 08/18/2024 11:34 PM EDT [facility] Comment:As of 2021, the estimated GFR is calculated using the 2020 Chronic Kidney Disease Epidemiology Collaboration (CKD-EPI) equation. In line with the NKF-ASN Task Force Recommendations, this equation does not include a coefficient for race. A single eGFR value is calculated for each patient. The reference interval is >60 mL/min/1.73m2. eGFR values greater than 90 will be reported as >90mL/min/1.73m2. Reference: Luis Eduardo C, Talia M, Olivia DC, Emerita ND, Madelyn CA, Felicia LA, et al. A Unifying Approach for GFR Estimation: Recommendations of the NKF-ASN Task Force on Reassessing the inclusion of Race in Diagnosing Kidney Disease. Am J Kidney Dis. 2020. Plasma 08/18/2024 11:0 1 PM EDT 08/18/2024 11:12 PM EDT us Bárbara Alatorre [facility] BLOOD ORDERABLES Final Resu lt [facility] [address] [place] [address], [facility] * Magnesium (08/18/2024 3:17 PM EDT) Magnesium 1.7 1.5 - 2.5 mg/dL 08/18/2024 4:03 PM EDT [facility] Plasma 08/18/2024 3:17 PM EDT 08/18/2024 3:28 PM EDT us Bárbara Alatorre [employer] LAB BLOOD ORDERABLES Final Resu lt [facility] [address] [place] [address], [facility] * (ABNORMAL) Renal Function Panel w/EGFR (08/18/2024 3:17 PM EDT) Sodium 135 133 - 146 mmol/L 08/18/2024 4:03 PM EDT [facility] Potassium 3.4(L) 3.5 - 5.3 mmol/L 08/18/2024 4:03 PM EDT [facility] Chloride 110 98 - 110 mmol/L 08/18/2024 4:03 PM EDT [facility] CO2 16(L) 21 - 33 mmol/L 08/18/2024 4:03 PM EDT [facility] Anion Gap 9 3 - 16 mmol/L 08/18/2024 4:03 PM EDT [facility] BUN 40(H) 7 - 25 mg/dL 08/18/2024 4:03 PM EDT [facility] Creatinine 2.71(H) 0.60 - 1.30 mg/dL 08/18/2024 4:03 PM EDT [facility] Glucose 114(H) 70 - 100 mg/dL 08/18/2024 4:03 PM EDT [facility] Calcium 9.0 8.6 - 10.3 mg/dL 08/18/2024 4:03 PM EDT [facility] Phosphorus 2.7 2.1 - 4.7 mg/dL 08/18/2024 4:03 PM EDT [facility] Albumin 3.2(L) 3.5 - 5.7 g/dL 08/18/2024 4:03 PM EDT [facility] Osmolality, Calculated 291 278 - 305 mOsm/kg 08/18/2024 4:03 PM EDT [facility] EGFR 29 08/18/2024 4:03 PM EDT [facility] Comment:As of 2021, the estimated GFR is calculated using the 2020 Chronic Kidney Disease Epidemiology Collaboration (CKD-EPI) equation. In line with the NKF-ASN Task Force Recommendations, this equation does not include a coefficient for race. A single eGFR value is calculated for each patient. The reference interval is >60 mL/min/1.73m2. eGFR values greater than 90 will be reported as >90mL/min/1.73m2. Reference: Luis Eduardo C, Talia M, Olivia DC, Emerita ND, Madelyn CRUZ, Felicia LA, et al. A Unifying Approach for GFR Estimation: Recommendations of the NKF-ASN Task Force on Reassessing the inclusion of Race in Diagnosing Kidney Disease. Am J Kidney Dis. 2020. Plasma 08/18/2024 3:17 PM EDT 08/18/2024 3:28 PM EDT us Bárbara Alatorre [facility] BLOOD ORDERABLES Final Resu [facility] [address] * Phosphatidylethanol Confirmation, B (08/18/2024 9:59 AM EDT) PETH 16:0/18.1 (POPETH) 16 Cutoff: 10 ng/mL 08/20/2024 7:55 AM EDT [facility] Comment: Phosphatidylethanol (PEth) homologues result interpretation PEth 16:0/18:1 (POPEth) Less than 10 ng/mL: Not detected 10 - 19 ng/mL: Abstinence or light alcohol consumption (<2 drinks per day for several days a week) 20 - 200 ng/mL: Moderate alcohol consumption (up to 4 drinks per day for several days a week) Greater than 200 ng/mL: Heavy alcohol consumption or chronic alcohol use (at least 4 drinks per day several days a week) (Reference: Zhanna Grayson and Declan Phillips 2018 J. Forensic Sci) PETH 16:0/18.2 (PLPETH) <10 Cutoff: 10 ng/mL 08/20/2024 7:55 AM EDT [facility] Comment: PEth 16:0/18:2 (PLPEth) Reference ranges are not well established PEth Interpretation Positive. 08/20 7:55 AM EDT [facility] Comment: ADDITIONAL INFORMATION This report is intended for use in clinical monitoring and management of patients. It is not intended for use in employment-related testing. This test was developed and its performance characteristics determined by [facility] in a manner consistent with CLIA requirements. This test has not been cleared or approved by the U.S. Food and Drug Administration. Test Performed by: [facility] [address] [place] [address] Health And Wellness Advisor: Kathy Ortiz Ph.D.; CLIA# [id number] Whole Blood 08/18/2024 9:59 AM EDT 08/20/2024 7:55 AM EDT Chinedu Sidhu MD LAB BLOOD ORDERABLES Final Re sult [facility] [address] [facility] [place] [address], [facility] * (ABNORMAL) Venous Blood Gas, Line/Syringe (08/18/2024 4:58 AM EDT) PH-Line Draw 7.35 7.32 - 7.42 08/18/2024 5:06 AM EDT [facility] PCO2-Line Draw 27(L) 41 - 51 mm Hg 08/18/2024 5:06 AM EDT [facility] PO2-Line Draw 50(H) 25 - 40 mm Hg 08/18/2024 5:06 AM EDT [facility] HCO3-Line Draw 17(L) 24 - 28 mmol/L 08/18/2024 5:06 AM EDT [facility] CO2 Content-Line Draw 16(L) 25 - 29 mmol/L 08/18/2024 5:06 AM EDT [facility] Base Excess-Line Draw -9.5(L) -2.0 - 3.0 mmol/L 08/18/2024 5:06 AM EDT [facility] %HBO2-Line Draw 81.9(H) 40.0 - 70.0 % 08/18/2024 5:06 AM EDT [facility] Carboxyhgb-Ludivina e Draw 2.2 % 08/18/2024 5:06 AM EDT [facility] Comment: CARBOXYHEMOGLOBIN (CO) REFERENCE RANGES: Non-Smokers: <2 % Smokers: <8 % TOXIC: >20 % Methemoglobin- Line Draw 1.0 0.0 - 1.5 % 08/18/2024 5:06 AM EDT [facility] Reduced Hemoglobin-Ludivina e Draw 14.9(H) 0.0 - 5.0 % 08/18/2024 5:06 AM EDT [facility] Venous, Line Draw 08/18/2024 4:58 AM EDT 08/18/2024 5:03 AM EDT Flako Key MD LAB BLOOD ORDERABLES Final Re sult Performing Organization Address City/[facility]/ZIP Co de Phone Number [facility] [address] [facility] * Magnesium (08/18/2024 4:57 AM EDT) Magnesium 1.9 1.5 - 2.5 mg/dL 08/18/2024 5:54 AM EDT [facility] Plasma 08/18/2024 4:57 AM EDT 08/18/2024 5:23 AM EDT Bárbara Alatorre CNP LAB BLOOD ORDERABLES Final Resu lt Performing Organization Address [facility]/ZIP Co de Phone Number [facility] [address] [facility] * (ABNORMAL) Renal Function Panel w/EGFR (08/18/2024 4:57 AM EDT) Sodium 136 133 - 146 mmol/L 08/18/2024 5:54 AM EDT [facility] Potassium 3.3(L) 3.5 - 5.3 mmol/L 08/18/2024 5:54 AM EDT [facility] Chloride 109 98 - 110 mmol/L 08/18/2024 5:54 AM EDT [facility] CO2 18(L) 21 - 33 mmol/L 08/18/2024 5:54 AM EDT [facility] Anion Gap 9 3 - 16 mmol/L 08/18/2024 5:54 AM EDT [facility] BUN 37(H) 7 - 25 mg/dL 08/18/2024 5:54 AM EDT [facility] Creatinine 2.67(H) 0.60 - 1.30 mg/dL 08/18[facility]2024 [facility] Glucose 101(H) 70 - 100 mg/dL 08/18/2024 5:54 AM EDT [facility] Calcium 8.9 8.6 - 10.3 mg/dL 08/18/2024 5:54 AM EDT [facility] Phosphorus 2.6 2.1 - 4.7 mg/dL 08/18/2024 5:54 AM EDT [facility] Albumin 3.4(L) 3.5 - 5.7 g/dL 08/18/2024 5:[facility] Osmolality, Calculated 291 278 - 305 mOsm/kg 08/18/2024 5:[facility] EGFR 30 08/18/2024 5:54 AM EDT [facility] Comment:As of 2021, the estimated GFR is calculated using the 2020 Chronic Kidney Disease Epidemiology Collaboration (CKD-EPI) equation. In line with the NKF-ASN Task Force Recommendations, this equation does not include a coefficient for race. A single eGFR value is calculated for each patient. The reference interval is >60 mL/min/1.73m2. eGFR values greater than 90 will be reported as >90mL/min/1.73m2. Reference: Luis Eduardo C, Talia M, Olivia DC, Emerita ND, Madelyn [place], Felicia [place], et al. A Unifying Approach for GFR Estimation: Recommendations of the NKF-ASN Task Force on Reassessing the inclusion of Race in Diagnosing Kidney Disease. Am J Kidney Dis. 2020. Plasma 08/18/2024 4:57 AM EDT 08/18/2024 5:23 AM EDT us Bárbara Alatorre [employer] LAB BLOOD ORDERABLES Final Resu lt [facility] [address] [facility]. [address] * (ABNORMAL) Protime-INR (08/18/2024 4:57 AM EDT) Protime 24.1(H) 12.1 - 15.1 seconds 08/18/2024 5:42 AM EDT [facility] INR 2.1(H) 0.9 - 1.1 08/18/2024 5:42 AM EDT [facility] Comment: RECOMMENDED THERAPEUTIC RANGES USING INR : Stable oral anticoagulant therapy: 2.0 - 3.0 Mechanical prosthetic heart valve: 2.5 - 3.5 Recurrent acute myocardial infarction: 2.5 - 3.5 Plasma 08/18/2024 4:57 AM EDT 08/18/2024 5:23 AM EDT Zeina Francois MD LAB BLOOD ORDERABLES Final Res ult [facility] [address] [facility]. [address] * Phosphorus (08/18/2024 4:57 AM EDT) Phosphorus 2.6 2.1 - 4.7 mg/dL 08/18/2024 6:10 AM EDT [facility] Plasma 08/18/2024 4:5 7 AM EDT 08/18/2024 5:23 AM EDT Zeina Francois MD LAB BLOOD ORDERABLES Final Res ult [facility] [address] [facility]. [address] * (ABNORMAL) Hepatic Function Panel (08/18/2024 4:57 AM EDT) Total Bilirubin 35.6(H) 0.0 - 1.5 mg/dL 08/18/2024 6:10 AM EDT [facility] Bilirubin, Direct 23.40(H) 0.00 - 0.40 mg/dL 08/18/2024 6:10 AM EDT [facility] AST 60(H) 13 - 39 U/L 08/18/2024 6:10 AM EDT [facility] ALT 30 7 - 52 U/L 08/18/2024 6:10 AM EDT [facility] Alkaline Phosphatase 84 36 - 125 U/L 08/18/2024 6:10 AM EDT [facility] Total Protein 4.4(L) 6.4 - 8.9 g/dL 08/18/2024 6:10 AM EDT [facility] Albumin 3.2(L) 3.5 - 5.7 g/dL 08/18/2024 6:10 AM EDT [facility] Bilirubin, Indirect 12.20(H) 0.00 - 1.10 mg/dL 08/18/2024 6:10 AM EDT [facility] Plasma 08/18/2024 4:57 AM EDT 08/18/2024 5:23 AM EDT us Zeina Francois MD LAB BLOOD ORDERABLES Final Res ult [facility] [address] * (ABNORMAL) CBC (08/18/2024 4:57 AM EDT) WBC 5.5 3.8 - 10.8 10E3/uL 08/18/2024 6:03 AM EDT [facility] RBC 2.69(L) 4.20 - 5.80 10E6/uL 08/18/2024 6:03 AM EDT [facility] Hemoglobin 9.7(L) 13.2 - 17.1 g/dL 08/18/2024 6:03 AM EDT [facility] Hematocrit 26.0(L) 38.5 - 50.0 % 08/18/2024 6:03 AM EDT [facility] MCV 96.5 80.0 - 100.0 fL 08/18/2024 6:03 AM EDT [facility] MCH 36.1(H) 27.0 - 33.0 pg 08/18/2024 6:03 AM EDT [facility] MCHC 37.4(H) 32.0 - 36.0 g/dL 08/18/2024 6:03 AM EDT [facility] RDW 21.1(H) 11.0 - 15.0 % 08/18/2024 6:03 AM EDT [facility] Platelets 34(L) 140 - 400 10E3/uL 08/18/2024 6:03 AM EDT [facility] Comment: Specimen checked for clots. None detected. Slide Reviewed for PLT Clumps. None Seen. Large Platelets Present 6:03 AM EDT [facility] MPV 8.6 7.5 - 11.5 fL 08/18/2024 6:03 AM EDT [facility] Whole Blood 08/18/2024 4:57 AM EDT 08/18/2024 5:24 AM EDT us Zeina Francois MD LAB BLOOD ORDERABLES Final Res ult [facility] [address] [facility]. [address] * Magnesium (08/17/2024 11:53 PM EDT) Magnesium 1.8 1.5 - 2.5 mg/dL 08/18/2024 12:37 AM EDT [facility] Plasma 08/17/2024 11:5 3 PM EDT 08/18/2024 12:09 AM EDT us Bárbara Alatorre CNP LAB BLOOD ORDERABLES Final Resu lt [facility] [address] [facility]. [address] * (ABNORMAL) Renal Function Panel w/EGFR (08/17/2024 11:53 PM EDT) Sodium 137 133 - 146 mmol/L 08/18/2024 12:37 AM EDT [facility] Potassium 3.3(L) 3.5 - 5.3 mmol/L 08/18/2024 12:37 AM EDT [facility] Chloride 111(H) 98 - 110 mmol/L 08/18/2024 12:37 AM EDT [facility] CO2 16(L) 21 - 33 mmol/L 08/18/2024 12:37 AM EDT [facility] Anion Gap 10 3 - 16 mmol/L 08/18/2024 12:37 AM EDT [facility] BUN 38(H) 7 - 25 mg/dL 08/18/2024 12:37 AM EDT [facility] Creatinine 2.83(H) 0.60 - 1.30 mg/dL 08/18/2024 12:37 AM T [facility] Glucose 130(H) 70 - 100 mg/dL 08/18/2024 12:37 AM EDT [facility] Calcium 8.8 8.6 - 10.3 mg/dL 08/18/2024 12:37 AM [facility] Phosphorus 2.5 2.1 - 4.7 mg/dL 08/18/2024 12:37 AM T [facility] Albumin 3.2(L) 3.5 - 5.7 g/dL 08/18/2024 12:37 AM T [facility] Osmolality, Calculated 295 278 - 305 mOsm/kg [facility]/18[facility]24 [facility] 28 08/[facility]24 [facility] Comment:As of 2021, the estimated GFR is calculated using the 2020 Chronic Kidney Disease Epidemiology Collaboration (CKD-EPI) equation. In line with the NKF-ASN Task Force Recommendations, this equation does not include a coefficient for race. A single eGFR value is calculated for each patient. The reference interval is >60 mL/min/1.73m2. eGFR values greater than 90 will be reported as >90mL/min/1.73m2. Reference: Luis Eduardo C, Talia M, Olivia DC, Emerita ND, Madelyn CA, Felicia LA, et al. A Unifying Approach for GFR Estimation: Recommendations of the NKF-ASN Task Force on Reassessing the inclusion of Race in Diagnosing Kidney Disease. Am J Kidney Dis. 2020. Plasma 08/17/2024 11:5 3 PM EDT 08/18/2024 12:09 AM EDT Bárbara Alatorre [facility] BLOOD ORDERABLES Final Resu lt Performing Organization Address [facility]/ZIP Co de Phone Number [facility] [address] * Magnesium (08/17/2024 4:01 PM EDT) Magnesium 2.0 1.5 - 2.5 mg/dL 08/17/2024 4:35 PM EDT [facility] Plasma 08/17/2024 4:01 PM EDT 08/17/2024 4:09 PM EDT Bárbara Alatorre [facility] BLOOD ORDERABLES Final Resu lt Performing Organization Address [facility] Co de Phone Number [facility] [address] * (ABNORMAL) Renal Function Panel w/EGFR (08/17/2024 4:01 PM EDT) Sodium 139 133 - 146 mmol/L 08/17/2024 4:35 PM EDT [facility] Potassium 3.5 3.5 - 5.3 mmol/L 08/17/2024 4:35 PM EDT [facility] Chloride 112(H) 98 - 110 mmol/L 08/17/2024 4:35 PM EDT [facility] CO2 17(L) 21 - 33 mmol/L 08/17/2024 4:35 PM EDT [facility] Anion Gap 10 3 - 16 mmol/L 08/17/2024 4:35 PM EDT [facility] BUN 39(H) 7 - 25 mg/dL 08/17/2024 4:35 PM EDT [facility] Creatinine 2.94(H) 0.60 - 1.30 mg/dL 08/17/2024 4:35 PM EDT [facility] Glucose 119(H) 70 - 100 mg/dL 08/17/2024 4:35 PM EDT [facility] Calcium 8.5(L) 8.6 - 10.3 mg/dL 08/17/2024 4:35 PM EDT [facility] Phosphorus 2.4 2.1 - 4.7 mg/dL 08/17/2024 4:35 PM EDT [facility] Albumin 3.1(L) 3.5 - 5.7 g/dL 08/17/2024 4:35 PM EDT [facility] Osmolality, Calculated 299 278 - 305 mOsm/kg 08/17/2024 4:35 PM EDT [facility] EGFR 27 08/17/2024 4:35 PM EDT [facility] Comment:As of 2021, the estimated GFR is calculated using the 2020 Chronic Kidney Disease Epidemiology Collaboration (CKD-EPI) equation. In line with the NKF-ASN Task Force Recommendations, this equation does not include a coefficient for race. A single eGFR value is calculated for each patient. The reference interval is >60 mL/min/1.73m2. eGFR values greater than 90 will be reported as >90mL/min/1.73m2. Reference: Luis dEuardo C, Talia M, Olivia DC, Emerita ND, Madelyn CA, Felicia LA, et al. A Unifying Approach for GFR Estimation: Recommendations of the NKF-ASN Task Force on Reassessing the inclusion of Race in Diagnosing Kidney Disease. Am J Kidney Dis. 2020. Plasma 08/17/2024 4:01 PM EDT 08/17/2024 4:09 PM EDT us Bárbara Alatorre [facility] BLOOD ORDERABLES Final Resu lt [facility] [address] [place] [address], [facility] * (ABNORMAL) Ammonia (08/17/2024 9:03 AM EDT) Ammonia 182(HH) 27 - 90 ug/dL 08/17/2024 10:14 AM EDT [facility] Comment:Critical Result S_AM M:[id number] Called to and read back by: NORMAN DYKES RN at: 08/17/2024 10:14:04 by:[place] Plasma 08/17/2024 9:03 AM EDT 08/17/2024 9:37 AM EDT us Zeina Francois MD LAB BLOOD ORDERABLES Final Res ult Performing Organization Address [facility] Co de Phone Number [facility] [address] [facility]. [address] * (ABNORMAL) Hepatic Function Panel (08/17/2024 9:03 AM EDT) Total Bilirubin 38.7(H) 0.0 - 1.5 mg/dL 08/17/2024 10:14 AM EDT [facility] Bilirubin, Direct 24.24(H) 0.00 - 0.40 mg/dL 08/17/2024 10:14 AM EDT [facility] AST 55(H) 13 - 39 U/L 08/17/2024 10:14 AM EDT [facility] ALT 28 7 - 52 U/L 08/17/2024 10:14 AM EDT [facility] Alkaline Phosphatase 78 36 - 125 U/L 08/17/2024 10:14 AM EDT [facility] Total Protein 4.4(L) 6.4 - 8.9 g/dL 08/17/2024 10:14 AM EDT [facility] Albumin 3.2(L) 3.5 - 5.7 g/dL 08/17/2024 10:14 AM EDT [facility] Bilirubin, Indirect 14.46(H) 0.00 - 1.10 mg/dL 08/17/2024 10:14 AM EDT [facility] Plasma 08/17/2024 9:03 AM EDT 08/17/2024 9:34 AM EDT us Zeina Francois MD LAB BLOOD ORDERABLES Final Res ult [facility] [address] [facility] * (ABNORMAL) CBC, STAT (08/17/2024 6:47 AM EDT) WBC 6.4 3.8 - 10.8 10E3/uL 08/17/2024 8:11 AM EDT [facility] RBC 2.82(L) 4.20 - 5.80 10E6/uL 08/17/2024 8:11 AM EDT [facility] Hemoglobin 9.9(L) 13.2 - 17.1 g/dL 08/17/2024 8:11 AM EDT [facility] Hematocrit 26.8(L) 38.5 - 50.0 % 08/17/2024 8:11 AM EDT [facility] MCV 95.0 80.0 - 100.0 fL 08/17/2024 8:11 AM EDT [facility] MCH 35.0(H) 27.0 - 33.0 pg 08/17/2024 8:11 AM EDT [facility] MCHC 36.8(H) 32.0 - 36.0 g/dL 08/17/2024 8:11 AM EDT [facility] RDW 21.4(H) 11.0 - 15.0 % 08/17/2024 8:11 AM EDT [facility] Platelets 36(L) 140 - 400 10E3/uL 08/17/2024 8:11 AM EDT [facility] Comment: Specimen checked for clots. None detected. Slide Reviewed for PLT Clumps. None Seen. MPV 8.5 7.5 - 11.5 fL 08/17/2024 8:11 AM EDT [facility] Whole Blood 08/17/2024 6:47 AM EDT 08/17/2024 7:06 AM EDT us Marty Guidry MD LAB BLOOD ORDERABLES Final Result [facility] [address] [facility] [place] [address], [facility] * Magnesium (08/17/2024 6:47 AM EDT) Magnesium 2.0 1.5 - 2.5 mg/dL 08/17/2024 7:36 AM EDT [facility] Plasma 08/17/2024 6:47 AM EDT 08/17/2024 7:06 AM EDT us Bárbara Alatorre [employer] LAB BLOOD ORDERABLES Final Resu lt [facility] [address] [place] [address], [facility] * (ABNORMAL) Renal Function Panel w/EGFR (08/17/2024 6:47 AM EDT) Sodium 139 133 - 146 mmol/L 08/17/2024 7:36 AM EDT [facility] Potassium 3.1(L) 3.5 - 5.3 mmol/L 08/17/2024 7:36 AM EDT [facility] Chloride 111(H) 98 - 110 mmol/L 08/17/2024 7:36 AM EDT [facility] CO2 16(L) 21 - 33 mmol/L 08/17/2024 7:36 AM EDT [facility] Anion Gap 12 3 - 16 mmol/L 08/17/2024 7:36 AM EDT [facility] BUN 40(H) 7 - 25 mg/dL 08/17/2024 7:36 AM EDT [facility] Creatinine 2.84(H) 0.60 - 1.30 mg/dL 08/17/2024 7:36 AM EDT [facility] Glucose 107(H) 70 - 100 mg/dL 08/17/2024 7:36 AM EDT [facility] Calcium 9.1 8.6 - 10.3 mg/dL 08/17/2024 7:36 AM EDT [facility] Phosphorus 2.9 2.1 - 4.7 mg/dL 08/17/2024 7:36 AM EDT [facility] Albumin 3.4(L) 3.5 - 5.7 g/dL 08/17/2024 7:36 AM EDT [facility] Osmolality, Calculated 298 278 - 305 mOsm/kg 08/17/2024 7:36 AM EDT [facility] EGFR 28 08/17/2024 7:36 AM EDT [facility] Comment:As of 2021, the estimated GFR is calculated using the 2020 Chronic Kidney Disease Epidemiology Collaboration (CKD-EPI) equation. In line with the NKF-ASN Task Force Recommendations, this equation does not include a coefficient for race. A single eGFR value is calculated for each patient. The reference interval is >60 mL/min/1.73m2. eGFR values greater than 90 will be reported as >90mL/min/1.73m2. Reference: Luis Eduardo C, Talia M, Olivia DC, Emerita ND, Madelyn CA, Felicia LA, et al. A Unifying Approach for GFR Estimation: Recommendations of the NKF-ASN Task Force on Reassessing the inclusion of Race in Diagnosing Kidney Disease. Am J Kidney Dis. 2020. Plasma 08/17/2024 6:47 AM EDT 08/17/2024 7:06 AM EDT [employer] [facility] BLOOD ORDERABLES Final Resu lt Performing Organization Address [facility] Co de Phone Number [facility] [address] [place] [address]. [address] * Magnesium (08/16/2024 11:31 PM EDT) Magnesium 2.0 1.5 - 2.5 mg/dL 08/17/2024 12:21 AM EDT [facility] Plasma 08/16/2024 11:3 1 PM EDT 08/16/2024 11:54 PM EDT [facility] BLOOD ORDERABLES Final Resu lt Performing Organization Address [facility] de Phone Number [facility] [address] [place] [address] * (ABNORMAL) Renal Function Panel w/EGFR (08/16/2024 11:31 PM EDT) Sodium 140 133 - 146 mmol/L 08/17/2024 12:21 AM EDT [facility] Potassium 3.3(L) 3.5 - 5.3 mmol/L 08/17/2024 12:21 AM EDT [facility] Chloride 112(H) 98 - 110 mmol/L 08/17/2024 12:21 AM EDT [facility] CO2 15(L) 21 - 33 mmol/L 08/17/2024 12:21 AM EDT [facility] Anion Gap 13 3 - 16 mmol/L 08/17/2024 12:21 AM EDT [facility] BUN 42(H) 7 - 25 mg/dL 08/17/2024 12:21 AM EDT [facility] Creatinine 2.87(H) 0.60 - 1.30 mg/dL 08/17/2024 12:21 AM EDT [facility] Glucose 134(H) 70 - 100 mg/dL 08/17/2024 12:21 AM EDT [facility] Calcium 8.8 8.6 - 10.3 mg/dL 08/17/2024 12:21 AM EDT [facility] Phosphorus 2.7 2.1 - 4.7 mg/dL 08/17/2024 12:21 AM EDT [facility] Albumin 3.7 3.5 - 5.7 g/dL 08/17/2024 12:21 AM EDT [facility] Osmolality, Calculated 302 278 - 305 mOsm/kg 08/17/2024 12:21 AM EDT [facility] EGFR 27 08/17/2024 12:21 AM EDT [facility] Comment:As of 2021, the estimated GFR is calculated using the 2020 Chronic Kidney Disease Epidemiology Collaboration (CKD-EPI) equation. In line with the NKF-ASN Task Force Recommendations, this equation does not include a coefficient for race. A single eGFR value is calculated for each patient. The reference interval is >60 mL/min/1.73m2. eGFR values greater than 90 will be reported as >90mL/min/1.73m2. Reference: Luis Eduardo C, Talia M, Olivia DC, Emerita ND, Madelyn CA, Felicia LA, et al. A Unifying Approach for GFR Estimation: Recommendations of the NKF-ASN Task Force on Reassessing the inclusion of Race in Diagnosing Kidney Disease. Am J Kidney Dis. 2020. Plasma 08/16/2024 11:3 1 PM EDT 08/16/2024 11:54 PM EDT us Tillen Landry [employer] LAB BLOOD ORDERABLES Final Resu lt [facility] [address] * Magnesium (08/16/2024 5:19 PM EDT) Magnesium 2.1 1.5 - 2.5 mg/dL 08/16/2024 6:13 PM EDT [facility] Plasma 08/16/2024 5:19 PM EDT 08/16/2024 5:40 PM EDT [employer] LAB BLOOD ORDERABLES Final Resu lt Performing Organization Address [facility]/ZIP Co de Phone Number [facility] [address] [facility]. [address] * (ABNORMAL) Renal Function Panel w/EGFR (08/16/2024 5:19 PM EDT) Sodium 140 133 - 146 mmol/L 08/16/2024 6:13 PM EDT [facility] Potassium 3.3(L) 3.5 - 5.3 mmol/L 08/16/2024 6:13 PM EDT [facility] Chloride 112(H) 98 - 110 mmol/L 08/16/2024 6:13 PM EDT [facility] CO2 16(L) 21 - 33 mmol/L 08/16/2024 6:13 PM EDT [facility] Anion Gap 12 3 - 16 mmol/L 08/16/2024 6:13 PM EDT [facility] BUN 40(H) 7 - 25 mg/dL 08/16/2024 6:13 PM EDT [facility] Creatinine 2.50(H) 0.60 - 1.30 mg/dL 08/16/2024 6:13 PM EDT [facility] Glucose 138(H) 70 - 100 mg/dL 08/16/2024 6:13 PM EDT [facility] Calcium 9.0 8.6 - 10.3 mg/dL 08/16/2024 6:13 PM EDT [facility] Phosphorus 2.6 2.1 - 4.7 mg/dL 08/16/2024 6:13 PM EDT [facility] Albumin 3.4(L) 3.5 - 5.7 g/dL 08/16/2024 6:13 PM EDT [facility] Osmolality, Calculated 302 278 - 305 mOsm/kg 08/16/2024 6:13 PM EDT [facility] EGFR 32 08/16/2024 6:13 PM EDT [facility] Comment:As of 2021, the estimated GFR is calculated using the 2020 Chronic Kidney Disease Epidemiology Collaboration (CKD-EPI) equation. In line with the NKF-ASN Task Force Recommendations, this equation does not include a coefficient for race. A single eGFR value is calculated for each patient. The reference interval is >60 mL/min/1.73m2. eGFR values greater than 90 will be reported as >90mL/min/1.73m2. Reference: Luis Eduardo C, Talia M, Olivia DC, Emerita ND, Madelyn [place], Felicia [place], et al. A Unifying Approach for GFR Estimation: Recommendations of the NKF-ASN Task Force on Reassessing the inclusion of Race in Diagnosing Kidney Disease. Am J Kidney Dis. 2020. Plasma 08/16/2024 5:19 PM EDT 08/16/2024 5:40 PM EDT Bárbara Alatorre [facility] BLOOD ORDERABLES Final Resu lt [facility] [address] * (ABNORMAL) Protime-INR, STAT (08/16/2024 8:49 AM EDT) Protime 24.6(H) 12.1 - 15.1 seconds 08/16/2024 9:23 AM EDT [facility] INR 2.1(H) 0.9 - 1.1 08/16/2024 9:23 AM EDT [facility] Comment: RECOMMENDED THERAPEUTIC RANGES USING INR : Stable oral anticoagulant therapy: 2.0 - 3.0 Mechanical prosthetic heart valve: 2.5 - 3.5 Recurrent acute myocardial infarction: 2.5 - 3.5 Plasma 08/16/2024 8:49 AM EDT 08/16/2024 9:04 AM EDT us Karunaeric Alatorre [employer] LAB BLOOD ORDERABLES Final Resu lt [facility] [address] * Magnesium (08/16/2024 8:49 AM EDT) Magnesium 2.1 1.5 - 2.5 mg/dL 08/16/2024 9:31 AM EDT [facility] Plasma 08/16/2024 8:49 AM EDT 08/16/2024 9:04 AM EDT us Karunaeric Alatorre [facility] BLOOD ORDERABLES Final Resu lt Performing Organization Address [facility] Co de Phone Number [facility] [address] * (ABNORMAL) Renal Function Panel w/EGFR (08/16/2024 8:49 AM EDT) Sodium 140 133 - 146 mmol/L 08/16/2024 9:31 AM EDT [facility] Potassium 3.2(L) 3.5 - 5.3 mmol/L 08/16/2024 9:31 AM EDT [facility] Chloride 110 98 - 110 mmol/L 08/16/2024 9:31 AM EDT [facility] CO2 19(L) 21 - 33 mmol/L 08/16/2024 9:31 AM EDT [facility] Anion Gap 11 3 - 16 mmol/L 08/16/2024 9:31 AM EDT [facility] BUN 40(H) 7 - 25 mg/dL 08/16/2024 9:31 AM EDT [facility] Creatinine 2.57(H) 0.60 - 1.30 mg/dL 08/16/2024 9:31 AM EDT [facility] Glucose 119(H) 70 - 100 mg/dL 08/16/2024 9:31 AM EDT [facility] Calcium 9.2 8.6 - 10.3 mg/dL 08/16/2024 9:31 AM EDT [facility] Phosphorus 3.2 2.1 - 4.7 mg/dL 08/16/2024 9:31 AM EDT [facility] Albumin 3.6 3.5 - 5.7 g/dL 08/16/2024 9:31 AM EDT [facility] Osmolality, Calculated 301 278 - 305 mOsm/kg 08/16/2024 9:31 AM EDT [facility] EGFR 31 08/16/2024 9:31 AM EDT [facility] Comment:As of 2021, the estimated GFR is calculated using the 2020 Chronic Kidney Disease Epidemiology Collaboration (CKD-EPI) equation. In line with the NKF-ASN Task Force Recommendations, this equation does not include a coefficient for race. A single eGFR value is calculated for each patient. The reference interval is >60 mL/min/1.73m2. eGFR values greater than 90 will be reported as >90mL/min/1.73m2. Reference: Luis Eduardo C, Talia M, Olivia DC, Emerita ND, Madelyn [place], Felicia [place], et al. A Unifying Approach for GFR Estimation: Recommendations of the NKF-ASN Task Force on Reassessing the inclusion of Race in Diagnosing Kidney Disease. Am J Kidney Dis. 2020. Plasma 08/16/2024 8:49 AM EDT 08/16/2024 9:04 AM EDT us Bárbara Hansonry [facility] BLOOD ORDERABLES Final Resu lt [facility] [address] [place], [place] [address] * Magnesium (08/16/2024 7:18 AM EDT) Magnesium 2.2 1.5 - 2.5 mg/dL 08/16/2024 8:29 AM EDT [facility] Plasma 08/16/2024 7:18 AM EDT 08/16/2024 7:33 AM EDT Bárbara Alatorre [facility] BLOOD ORDERABLES Final Resu lt [facility] [address] [place] [address], [facility] * (ABNORMAL) Renal Function Panel w/EGFR (08/16/2024 7:18 AM EDT) Sodium 139 133 - 146 mmol/L 08/16/2024 8:29 AM EDT [facility] Potassium 4.0 3.5 - 5.3 mmol/L 08/16/2024 8:29 AM EDT [facility] Chloride 110 98 - 110 mmol/L 08/16/2024 8:29 AM EDT [facility] CO2 17(L) 21 - 33 mmol/L 08/16/2024 8:29 AM EDT [facility] Anion Gap 12 3 - 16 mmol/L 08/16/2024 8:29 AM EDT [facility] BUN 41(H) 7 - 25 mg/dL 08/16/2024 8:29 AM EDT [facility] Creatinine 2.67(H) 0.60 - 1.30 mg/dL 08/16/2024 8:29 AM EDT [facility] Glucose 127(H) 70 - 100 mg/dL 08/16/2024 8:29 AM EDT [facility] Calcium 9.1 8.6 - 10.3 mg/dL 08/16/2024 8:29 AM EDT [facility] Phosphorus 3.4 2.1 - 4.7 mg/dL 08/16/2024 8:29 AM EDT [facility] Albumin 3.5 3.5 - 5.7 g/dL 08/16/2024 8:29 AM EDT [facility] Osmolality, Calculated 300 278 - 305 mOsm/kg 08/16/2024 8:29 AM EDT [facility] EGFR 30 08/16/2024 8:29 AM EDT [facility] Comment:As of 2021, the estimated GFR is calculated using the 2020 Chronic Kidney Disease Epidemiology Collaboration (CKD-EPI) equation. In line with the NKF-ASN Task Force Recommendations, this equation does not include a coefficient for race. A single eGFR value is calculated for each patient. The reference interval is >60 mL/min/1.73m2. eGFR values greater than 90 will be reported as >90mL/min/1.73m2. Reference: Luis Eduardo C, Talia M, Olivia DC, Emerita [place], Madelyn [place], Felicia [place], et al. A Unifying Approach for GFR Estimation: Recommendations of the NKF-ASN Task Force on Reassessing the inclusion of Race in Diagnosing Kidney Disease. Am J Kidney Dis. 2020. Plasma 08/16/2024 7:18 AM EDT 08/16/2024 7:33 AM EDT us Karuna Landry [facility] BLOOD ORDERABLES Final Resu lt Performing Organization Address [facility] [facility]/ZIP Co de Phone Number [facility] [address] [facility]. [address] * (ABNORMAL) Ammonia (08/16/2024 7:18 AM EDT) Ammonia 175(H) 27 - 90 ug/dL 08/16/2024 8:00 AM EDT [facility] Plasma 08/16/2024 7:18 AM EDT 08/16/2024 7:29 AM EDT us [facility] BLOOD ORDERABLES Final Resu lt Performing Organization Address [facility]/ZIP Co de Phone Number [facility] [address] [facility]. [address] * (ABNORMAL) Hepatic Function Panel, STAT (08/16/2024 7:18 AM EDT) Total Bilirubin 39.9(H) 0.0 - 1.5 mg/dL 08/16/2024 8:30 AM EDT [facility] Bilirubin, Direct 25.52(H) 0.00 - 0.40 mg/dL 08/16/2024 8:30 AM EDT [facility] AST 55(H) 13 - 39 U/L 08/16/2024 8:30 AM EDT [facility] ALT 34 7 - 52 U/L 08/16/2024 8:30 AM EDT [facility] Alkaline Phosphatase 81 36 - 125 U/L 08/16/2024 8:30 AM EDT [facility] Total Protein 4.7(L) 6.4 - 8.9 g/dL 08/16/2024 8:30 AM EDT [facility] Albumin 3.5 3.5 - 5.7 g/dL 08/16/2024 8:30 AM EDT [facility] Bilirubin, Indirect 14.38(H) 0.00 - 1.10 mg/dL 08/16/2024 8:30 AM EDT [facility] Plasma 08/16/2024 7:18 AM EDT 08/16/2024 7:33 AM EDT us Bárbara Alatorre [facility] BLOOD ORDERABLES Final Resu lt [facility] [address] [place] [address], [facility] * (ABNORMAL) CBC (08/16/2024 7:18 AM EDT) WBC 6.8 3.8 - 10.8 10E3/uL 08/16/2024 8:21 AM EDT [facility] RBC 2.96(L) 4.20 - 5.80 10E6/uL 08/16/2024 8:21 AM EDT [facility] Hemoglobin 10.6(L) 13.2 - 17.1 g/dL 08/16/2024 8:21 AM EDT [facility] Hematocrit 28.4(L) 38.5 - 50.0 % 08/16/2024 8:21 AM EDT [facility] MCV 95.9 80.0 - 100.0 fL 08/16/2024 8:21 AM EDT [facility] MCH 35.9(H) 27.0 - 33.0 pg 08/16/2024 8:21 AM EDT [facility] MCHC 37.4(H) 32.0 - 36.0 g/dL 08/16/2024 8:21 AM EDT [facility] RDW 21.0(H) 11.0 - 15.0 % 08/16/2024 8:21 AM EDT [facility] Platelets 41(L) 140 - 400 10E3/uL 08/16/2024 8:21 AM EDT [facility] Comment: Specimen checked for clots. None detected. PLT ESTIMATE CONSISTENT WITH ANALYZER VALUE Slide Reviewed for PLT Clumps. None Seen. _Platelets Appear Decreased MPV 8.9 7.5 - 11.5 fL 08/16/2024 8:21 AM EDT [facility] Whole Blood 08/16/2024 7:18 AM EDT 08/16/2024 7:33 AM EDT Bárbara Landry [employer] LAB BLOOD ORDERABLES Final Resu lt Performing Organization Address City/[facility]/ZIP Co de Phone Number [facility] [address] [facility]. [address] * Magnesium (08/15/2024 10:41 PM EDT) Magnesium 1.8 1.5 - 2.5 mg/dL 08/15/2024 11:15 PM EDT [facility] Plasma 08/15/2024 10:4 1 PM EDT 08/15/2024 10:45 PM EDT Terra Philip DO LAB BLOOD ORDERABLES Final Re sult Performing Organization Address [facility] Co de Phone Number [facility] [address] [facility] * (ABNORMAL) Renal Function Panel w/EGFR (08/15/2024 10:41 PM EDT) Sodium 141 133 - 146 mmol/L 08/15/2024 11:15 PM EDT [facility] Potassium 2.8(LL) 3.5 - 5.3 mmol/L 08/15/2024 11:15 PM EDT [facility] Comment:Critical Result K:2. 8 Called to and read back by: GEOVANNA SPENCER RN at: 08/15/2024 23:14:52 by:NANCY Chloride 111(H) 98 - 110 mmol/L 08/15/2024 11:15 PM EDT [facility] CO2 17(L) 21 - 33 mmol/L 08/15/2024 11:15 PM EDT [facility] Anion Gap 13 3 - 16 mmol/L 08/15/2024 11:15 PM EDT [facility] BUN 42(H) 7 - 25 mg/dL 08/15/2024 11:15 PM EDT [facility] Creatinine 2.99(H) 0.60 - 1.30 mg/dL 08/15/2024 11:15 PM EDT [facility] Glucose 134(H) 70 - 100 mg/dL 08/15/2024 11:15 PM EDT [facility] Calcium 8.7 8.6 - 10.3 mg/dL 08/15/2024 11:15 PM EDT [facility] Phosphorus 1.7(L) 2.1 - 4.7 mg/dL 08/15/2024 11:15 PM EDT [facility] Albumin 3.5 3.5 - 5.7 g/dL 08/15/2024 11:15 PM EDT [facility] Osmolality, Calculated 304 278 - 305 mOsm/kg 08/15/2024 11:15 PM EDT [facility] EGFR 26 08/15/2024 11:15 PM EDT [facility] Comment:As of 2021, the estimated GFR is calculated using the 2020 Chronic Kidney Disease Epidemiology Collaboration (CKD-EPI) equation. In line with the NKF-ASN Task Force Recommendations, this equation does not include a coefficient for race. A single eGFR value is calculated for each patient. The reference interval is >60 mL/min/1.73m2. eGFR values greater than 90 will be reported as >90mL/min/1.73m2. Reference: Luis Eduardo C, Talia M, Olivia DC, Emerita ND, Madelyn [place], Felicia [place], et al. A Unifying Approach for GFR Estimation: Recommendations of the NKF-ASN Task Force on Reassessing the inclusion of Race in Diagnosing Kidney Disease. Am J Kidney Dis. 2020. Plasma 08/15/2024 10:4 1 PM EDT 08/15/2024 10:45 PM EDT us Terra Philip DO LAB BLOOD ORDERABLES Final Re sult [facility] [address] * CARISA Rhythm Strip - Scan (08/15/2024 7:21 PM EDT) us Scanning [employer] SCAN DOCS - NO RESULTS Final Res ult * Magnesium (08/15/2024 2:26 PM EDT) Magnesium 2.0 1.5 - 2.5 mg/dL 08/15/2024 3:10 PM EDT [facility] Plasma 08/15/2024 2:26 PM EDT 08/15/2024 2:36 PM EDT Terra Tamera DO LAB BLOOD ORDERABLES Final Re sult [facility] [address] [facility] * (ABNORMAL) Renal Function Panel w/EGFR (08/15/2024 2:26 PM EDT) Sodium 144 133 - 146 mmol/L 08/15/2024 3:10 PM EDT [facility] Potassium 3.2(L) 3.5 - 5.3 mmol/L 08/15/2024 3:10 PM EDT [facility] Chloride 112(H) 98 - 110 mmol/L 08/15/2024 3:10 PM EDT [facility] CO2 20(L) 21 - 33 mmol/L 08/15/2024 3:10 PM EDT [facility] Anion Gap 12 3 - 16 mmol/L 08/15/2024 3:10 PM EDT [facility] BUN 47(H) 7 - 25 mg/dL 08/15/2024 3:10 PM EDT [facility] Creatinine 2.95(H) 0.60 - 1.30 mg/dL 08/15/2024 3:10 PM EDT [facility] Glucose 88 70 - 100 mg/dL 08/15/2024 3:10 PM EDT [facility] Calcium 9.1 8.6 - 10.3 mg/dL 08/15/2024 3:10 PM EDT [facility] Phosphorus 2.2 2.1 - 4.7 mg/dL 08/15/2024 3:10 PM EDT [facility] Albumin 3.9 3.5 - 5.7 g/dL 08/15/2024 3:10 PM EDT [facility] Osmolality, Calculated 310(H) 278 - 305 mOsm/kg 08/15/2024 3:10 PM EDT [facility] EGFR 26 08/15/2024 3:10 PM EDT [facility] Comment:As of 2021, the estimated GFR is calculated using the 2020 Chronic Kidney Disease Epidemiology Collaboration (CKD-EPI) equation. In line with the NKF-ASN Task Force Recommendations, this equation does not include a coefficient for race. A single eGFR value is calculated for each patient. The reference interval is >60 mL/min/1.73m2. eGFR values greater than 90 will be reported as >90mL/min/1.73m2. Reference: Luis Eduardo C, Talia M, Olivia DC, Emerita ND, Madelyn [place], Felicia [place], et al. A Unifying Approach for GFR Estimation: Recommendations of the NKF-ASN Task Force on Reassessing the inclusion of Race in Diagnosing Kidney Disease. Am J Kidney Dis. 2020. Plasma 08/15/2024 2:26 PM EDT 08/15/2024 2:36 PM EDT us Terra Tamera DO LAB BLOOD ORDERABLES Final Re sult [facility] [address] * CARISA Rhythm Strip - Scan (08/15/2024 1:05 PM EDT) us Scanning [employer] SCAN DOCS - NO RESULTS Final Res ult * Lipase (08/15/2024 10:35 AM EDT) Lipase 66 4 - 82 U/L 08/15/2024 11:21 AM EDT [facility] Plasma 08/15/2024 10:3 5 AM EDT 08/15/2024 10:49 AM EDT us Bárbara Alatorre [employer] LAB BLOOD ORDERABLES Final Resu lt Performing Organization Address [facility] Co de Phone Number [facility] [address] * Prepare Platelets, leukoreduced, 1 Units (08/15/2024 6:17 AM EDT) Product Code Y6102I76 [facility] Unit Number [id number] [facility] Dispense Status Presumed Transfused_PT [facility] Blood Expiration Date [id number] [facility]LL Coding System [id number] [facility] Blood Bank Product Mariposa Ramirez MD BLOOD BANK PRODUCT ORDERAB LES Final Result Performing Organization Address [facility] Co de Phone Number HC[facility] * Magnesium (08/15/2024 5:55 AM EDT) Magnesium 2.1 1.5 - 2.5 mg/dL 08/15/2024 6:39 AM EDT [facility] Plasma 08/15/2024 5:55 AM EDT 08/15/2024 6:02 AM EDT Terra Philip DO LAB BLOOD ORDERABLES Final Re sult Performing Organization Address [facility] Co de Phone Number [facility] [address] [facility] * (ABNORMAL) Renal Function Panel w/EGFR (08/15/2024 5:55 AM EDT) Sodium 145 133 - 146 mmol/L 08/15/2024 6:47 AM EDT [facility] Potassium 3.0(L) 3.5 - 5.3 mmol/L 08/15/2024 6:47 AM EDT [facility] Chloride 112(H) 98 - 110 mmol/L 08/15/2024 6:47 AM EDT [facility] CO2 21 21 - 33 mmol/L 08/15/2024 6:47 AM EDT [facility] Anion Gap 12 3 - 16 mmol/L 08/15/2024 6:47 AM EDT [facility] BUN 48(H) 7 - 25 mg/dL 08/15/2024 6:47 AM EDT [facility] Creatinine 2.93(H) 0.60 - 1.30 mg/dL 08/15/2024 6:47 AM EDT [facility] Glucose 151(H) 70 - 100 mg/dL 08/15/2024 6:47 AM EDT [facility] Calcium 9.5 8.6 - 10.3 mg/dL 08/15/2024 6:47 AM EDT [facility] Phosphorus 3.5 2.1 - 4.7 mg/dL 08/15/2024 6:47 AM EDT [facility] Albumin 3.5 3.5 - 5.7 g/dL 08/15/2024 6:47 AM EDT [facility] Osmolality, Calculated 316(H) 278 - 305 mOsm/kg 08/15/2024 6:47 AM EDT [facility] EGFR 27 08/15/2024 6:47 AM EDT [facility] Comment:As of 2021, the estimated GFR is calculated using the 2020 Chronic Kidney Disease Epidemiology Collaboration (CKD-EPI) equation. In line with the NKF-ASN Task Force Recommendations, this equation does not include a coefficient for race. A single eGFR value is calculated for each patient. The reference interval is >60 mL/min/1.73m2. eGFR values greater than 90 will be reported as >90mL/min/1.73m2. Reference: Luis Eduardo C, Talia M, Olivia DC, Emerita ND, Madelyn [place], Felicia [place], et al. A Unifying Approach for GFR Estimation: Recommendations of the NKF-ASN Task Force on Reassessing the inclusion of Race in Diagnosing Kidney Disease. Am J Kidney Dis. 2020. Plasma 08/15/2024 5:55 AM EDT 08/15/2024 6:02 AM EDT Terra Philip DO LAB BLOOD ORDERABLES Final Re sult [facility] [address] * (ABNORMAL) Ammonia (08/15/2024 5:55 AM EDT) Ammonia 168(H) 27 - 90 ug/dL 08/15/2024 6:52 AM EDT [facility] Plasma 08/15/2024 5:55 AM EDT 08/15/2024 6:01 AM EDT us Bárbara Alatorre [facility] BLOOD ORDERABLES Final Resu lt Performing Organization Address [facility]/ZIP Co de Phone Number [facility] [address] [facility] * (ABNORMAL) Protime-INR, AM (08/15/2024 5:55 AM EDT) Protime 23.6(H) 12.1 - 15.1 seconds 08/15/2024 6:16 AM EDT [facility] INR 2.0(H) 0.9 - 1.1 08/15/2024 6:16 AM EDT [facility] Comment: RECOMMENDED THERAPEUTIC RANGES USING INR : Stable oral anticoagulant therapy: 2.0 - 3.0 Mechanical prosthetic heart valve: 2.5 - 3.5 Recurrent acute myocardial infarction: 2.5 - 3.5 Plasma 08/15/2024 5:55 AM EDT 08/15/2024 6:02 AM EDT us Mak Armenta [facility] BLOOD ORDERABLES Fin al Result Performing Organization Address City/[facility]/ZIP Co de Phone Number [facility] [address] [place] [facility]. [address] * (ABNORMAL) Hepatic Function Panel (08/15/2024 5:55 AM EDT) Total Bilirubin 40.4(H) 0.0 - 1.5 mg/dL 08/15/2024 6:47 AM EDT [facility] Bilirubin, Direct 25.60(H) 0.00 - 0.40 mg/dL 08/15/2024 6:47 AM EDT [facility] AST 57(H) 13 - 39 U/L 08/15/2024 6:47 AM EDT [facility] ALT 31 7 - 52 U/L 08/15/2024 6:47 AM EDT [facility] Alkaline Phosphatase 74 36 - 125 U/L 08/15/2024 6:47 AM EDT [facility] Total Protein 4.7(L) 6.4 - 8.9 g/dL 08/15/2024 6:47 AM EDT [facility] Albumin 3.5 3.5 - 5.7 g/dL 08/15/2024 6:47 AM EDT [facility] Bilirubin, Indirect 14.80(H) 0.00 - 1.10 mg/dL 08/15/2024 6:47 AM EDT [facility] Plasma 08/15/2024 5:55 AM EDT 08/15/2024 6:02 AM EDT us Mak Armenta [facility] BLOOD ORDERABLES Fin al Result Performing Organization Address City/State/[facility] Co de Phone Number [facility] [address] * (ABNORMAL) CBC (08/15/2024 5:55 AM EDT) WBC 6.4 3.8 - 10.8 10E3/uL 08/15/2024 9:12 AM EDT [facility] RBC 3.02(L) 4.20 - 5.80 10E6/uL 08/15/2024 9:12 AM EDT [facility] Hemoglobin 10.7(L) 13.2 - 17.1 g/dL 08/15/2024 9:12 AM EDT [facility] Hematocrit 29.2(L) 38.5 - 50.0 % 08/15/2024 9:12 AM EDT [facility] MCV 96.7 80.0 - 100.0 fL 08/15/2024 9:12 AM EDT [facility] MCH 35.4(H) 27.0 - 33.0 pg 08/15/2024 9:12 AM EDT [facility] MCHC 36.6(H) 32.0 - 36.0 g/dL 08/15/2024 9:12 AM EDT [facility] RDW 21.4(H) 11.0 - 15.0 % 08/15/2024 9:12 AM EDT [facility] Platelets 52(L) 140 - 400 10E3/uL 08/15/2024 9:12 AM EDT [facility] Comment:Specimen checked for clots. None detected. Platelet Estimate Decreased 08/15/2024 9:12 AM EDT [facility] MPV 8.7 7.5 - 11.5 fL 08/15/2024 9:12 AM EDT [facility] Whole Blood 08/15/2024 5:55 AM EDT 08/15/2024 6:02 AM EDT Narrative [facility] - 08/15/2024 9:12 AM EDT Peripheral blood smear was scanned per review criteria approved by the laboratory medical claims processor. Mak Armenta CNP LAB BLOOD ORDERABLES Fin al Result [facility] [address] * Magnesium (08/14/2024 11:18 PM EDT) Pathologist [facility] Magnesium 2.3 1.5 - 2.5 mg/dL 08/14/2024 11:48 PM EDT [facility] Plasma 08/14/2024 11:1 8 PM EDT 08/14/2024 11:21 PM EDT Raza Rhoades MD LAB BLOOD ORDERABLES Final Resul t [facility] [address] * (ABNORMAL) Renal Function Panel w/EGFR (08/14/2024 11:18 PM EDT) Sodium 145 133 - 146 mmol/L 08/14/2024 11:48 PM EDT [facility] Potassium 3.0(L) 3.5 - 5.3 mmol/L 08/14/2024 11:48 PM EDT [facility] Chloride 114(H) 98 - 110 mmol/L 08/14/2024 11:48 PM EDT [facility] CO2 19(L) 21 - 33 mmol/L 08/14/2024 11:48 PM EDT [facility] Anion Gap 12 3 - 16 mmol/L 08/14/2024 11:48 PM EDT [facility] BUN 52(H) 7 - 25 mg/dL 08/14/2024 11:48 PM EDT [facility] Creatinine 3.20(H) 0.60 - 1.30 mg/dL 08/14/2024 11:48 PM EDT [facility] Glucose 177(H) 70 - 100 mg/dL 08/14/2024 11:48 PM EDT [facility] Calcium 9.5 8.6 - 10.3 mg/dL 08/14/2024 11:48 PM EDT [facility] Phosphorus 1.9(L) 2.1 - 4.7 mg/dL 08/14/2024 11:48 PM EDT [facility] Albumin 3.8 3.5 - 5.7 g/dL 08/14/2024 11:48 PM EDT [facility] Osmolality, Calculated 318(H) 278 - 305 mOsm/kg 08/14/2024 11:48 PM EDT [facility] EGFR 24 08/14/2024 11:48 PM EDT [facility] Comment:As of 2021, the estimated GFR is calculated using the 2020 Chronic Kidney Disease Epidemiology Collaboration (CKD-EPI) equation. In line with the NKF-ASN Task Force Recommendations, this equation does not include a coefficient for race. A single eGFR value is calculated for each patient. The reference interval is >60 mL/min/1.73m2. eGFR values greater than 90 will be reported as >90mL/min/1.73m2. Reference: Luis Eduardo C, Talia M, Olivia DC, Emerita ND, Madelyn [place], Felicia [place], et al. A Unifying Approach for GFR Estimation: Recommendations of the NKF-ASN Task Force on Reassessing the inclusion of Race in Diagnosing Kidney Disease. Am J Kidney Dis. 2020. Plasma 08/14/2024 11:1 8 PM EDT 08/14/2024 11:22 PM EDT us Terra Philip DO LAB BLOOD ORDERABLES Final Re sult [facility] [address] [place] [id number], [facility] * (ABNORMAL) CBC, STAT (08/14/2024 3:37 PM EDT) WBC 7.2 3.8 - 10.8 10E3/uL 08/14/2024 3:51 PM EDT [facility] RBC 3.02(L) 4.20 - 5.80 10E6/uL 08/14/2024 3:51 PM EDT [facility] Hemoglobin 10.5(L) 13.2 - 17.1 g/dL 08/14/2024 3:51 PM EDT [facility] Hematocrit 28.8(L) 38.5 - 50.0 % 08/14/2024 3:51 PM EDT [facility] MCV 95.4 80.0 - 100.0 fL 08/14/2024 3:51 PM EDT [facility] MCH 35.0(H) 27.0 - 33.0 pg 08/14/2024 3:51 PM EDT [facility] MCHC 36.6(H) 32.0 - 36.0 g/dL 08/14/2024 3:51 PM EDT [facility] RDW 21.7(H) 11.0 - 15.0 % 08/14/2024 3:51 PM EDT [facility] Platelets 53(L) 140 - 400 10E3/uL 08/14/2024 3:51 PM EDT [facility] MPV 8.5 7.5 - 11.5 fL 08/14/2024 3:51 PM EDT [facility] Whole Blood 08/14/2024 3:37 PM EDT 08/14/2024 3:43 PM EDT us Mathieu Becker MD LAB BLOOD ORDERABLES Final Resul t [facility] [address] [facility]. [address] * Magnesium (08/14/2024 3:37 PM EDT) Magnesium 2.2 1.5 - 2.5 mg/dL 08/15/2024 2:07 AM EDT [facility] Plasma 08/14/2024 3:37 PM EDT 08/15/2024 1:52 AM EDT us Mak Armenta [employer] LAB BLOOD ORDERABLES Fin al Result [facility] [address] [facility]. [address] * (ABNORMAL) Renal Function Panel w/EGFR (08/14/2024 3:37 PM EDT) Sodium 140 133 - 146 mmol/L 08/14/2024 4:19 PM EDT [facility] Potassium 3.1(L) 3.5 - 5.3 mmol/L 08/14/2024 4:19 PM EDT [facility] Chloride 112(H) 98 - 110 mmol/L 08/14/2024 4:19 PM EDT [facility] CO2 18(L) 21 - 33 mmol/L 08/14/2024 4:19 PM EDT [facility] Anion Gap 10 3 - 16 mmol/L 08/14/2024 4:19 PM EDT [facility] BUN 54(H) 7 - 25 mg/dL 08/14/2024 4:19 PM EDT [facility] Creatinine 3.12(H) 0.60 - 1.30 mg/dL 08/14/2024 4:19 PM EDT [facility] Glucose 131(H) 70 - 100 mg/dL 08/14/2024 4:19 PM EDT [facility] Calcium 9.4 8.6 - 10.3 mg/dL 08/14/2024 4:19 PM EDT [facility] Phosphorus 1.9(L) 2.1 - 4.7 mg/dL 08/14/2024 4:19 PM EDT [facility] Albumin 3.7 3.5 - 5.7 g/dL 08/14/2024 4:19 PM EDT [facility] Osmolality, Calculated 307(H) 278 - 305 mOsm/kg 08/14/2024 4:19 PM EDT [facility] EGFR 25 08/14/2024 4:19 PM EDT [facility] Comment:As of 2021, the estimated GFR is calculated using the 2020 Chronic Kidney Disease Epidemiology Collaboration (CKD-EPI) equation. In line with the NKF-ASN Task Force Recommendations, this equation does not include a coefficient for race. A single eGFR value is calculated for each patient. The reference interval is >60 mL/min/1.73m2. eGFR values greater than 90 will be reported as >90mL/min/1.73m2. Reference: Luis Eduardo C, Talia M, Olivia DC, Emerita ND, Madelyn CA, Felicia LA, et al. A Unifying Approach for GFR Estimation: Recommendations of the NKF-ASN Task Force on Reassessing the inclusion of Race in Diagnosing Kidney Disease. Am J Kidney Dis. 2020. Plasma 08/14/2024 3:37 PM EDT 08/14/2024 3:43 PM EDT us Terra Philip DO LAB BLOOD ORDERABLES Final Re sult [facility] [id number] [place] [address], [facility] * XR Portable Feeding Tube Check (08/14/2024 2:11 PM EDT) Anatomical Region Laterality Modality Abdomen, Chest Radiographic Graciela ging 08/14/2024 1:53 PM EDT Impressions 08/14/2024 2:17 PM EDT IMPRESSION: Feeding tube tip terminates over the gastric body. Report Verified by: Lexx Hansen MD at 08/14/2024 2:17 PM EDT Narrative 08/14/2024 2:17 PM EDT EXAM: XR PORTABLE FEEDING TUBE CHECK INDICATION: NG placed TECHNIQUE: Supine AP view of the abdomen COMPARISON: None Available. FINDINGS: Nasoenteric feeding tube tip terminates within the gastric body. There is also a vascular coil projecting adjacent to the GE junction. Procedure Note Lexx Hansen MD - 08/14/2024 EXAM: XR PORTABLE FEEDING TUBE CHECK INDICATION: NG placed TECHNIQUE: Supine AP view of the abdomen COMPARISON: None Available. FINDINGS: Nasoenteric feeding tube tip terminates within the gastric body. There isalso a vascular coil projecting adjacent to the GE junction. IMPRESSION: Feeding tube tip terminates over the gastric body. Report Verified by: Lexx Hansen MD at 08/14/2024 2:17 PM EDT Mak Armenta [employer] IMG DIAGNOSTIC IMAGING O RDERABLES Final Result * Paracentesis (08/14/2024 2:05 PM EDT) Narrative Mathieu Becker MD - 08/14/2024 2:05 PM EDT Mathieu Becker MD 08/14/2024 2:06 PM Paracentesis Date/Time: 08/14/2024 2:05 PM Performed by: Mathieu Becker MD Authorized by: Mathieu Becker MD Consent: Consent obtained: Written Consent given by: Spouse Risks, benefits, and alternatives were discussed: yes Risks discussed: Bleeding and bowel perforation Alternatives discussed: No treatment Selby protocol: Procedure explained and questions answered to patient or proxy's satisfaction: yes Relevant documents present and verified: yes Test results available: yes Imaging studies available: yes Required blood products, implants, devices, and special equipment available: yes Site/side marked: yes Immediately prior to procedure, a time out was called: yes Patient identity confirmed: Arm band Pre-procedure details: Procedure purpose: Diagnostic Preparation: Patient was prepped and draped in usual sterile fashion Anesthesia: Anesthesia method: Local infiltration Procedure details: Needle gauge: 19; Ochoa-eh catheter. Ultrasound guidance: yes Puncture site: R lower quadrant Fluid removed amount: 100 Fluid appearance: Serosanguinous and kajal Dressinx4 sterile gauze and adhesive bandage Post-procedure details: Procedure completion: Tolerated well, no immediate complications Comments: RLQ accessed w/o issue. No significant bleeding noted. No blood in fluid removed. us Mathieu Becker MD PROCEDURE/MINOR SURGICAL ORDERAB LES Final Result * CARISA Rhythm Strip - Scan (08/14/2024 1:56 PM EDT) us Scanning Uchhim SCAN DOCS - NO RESULTS Final Res ult * Triglycerides, Body Fluid (08/14/2024 12:31 PM EDT) Triglycerides, Fluid 18 mg/dL 08/14/2024 1:58 PM EDT [facility] Comment:Reference range not established for this test. Fluid ABDOMEN / Unknown 08/14/2024 12:31 PM EDT 08/14/2024 1:31 PM EDT Narrative [facility] - 08/14/2024 1:58 PM EDT This assay has been modified from the wax pumper's specifications and has been validated with performance characteristics determined by [facility] in accordance with federal regulations under the Clinical Laboratory Act Amendment of 1988. The modification has not been approved by the FDA which has determined that such approval is not necessary. The test is for clinical purposes and should not be regarded as investigational or for research use. Dex Jackman MD BODY FLUIDS AND STOOLS ORDERABL ES Final Result Performing Organization Address [facility]/ZIP Co de Phone Number [facility] [address] [place] [address] * Body Fluid Culture plus Stain (08/14/2024 12:31 PM EDT) Gram Stain Result Cytospin Results: [facility] Gram Stain Result Polymorphonuclear Leukocytes Seen; [facility] Gram Stain Result No Organisms Seen; [facility] Culture Result No Growth After 5 Days [facility] Peritoneal Fluid ABDOMEN / Unknown 2024 12:31 PM EDT 08/14/2024 1:19 PM EDT Dex Jackman MD MICROBIOLOGY - GENERAL ORDERABL ES Final Result Performing Organization Address City/[facility]/ZIP Co de Phone Number [facility] [address] [facility]. [address] * Amylase, Body fluid (08/14/2024 12:31 PM EDT) Amylase, Fluid 20 U/L 08/14/2024 2:00 PM EDT [facility] Comment:Reference range not established for this test. Abdominal Fluid ABDOMEN / Unknown 025 12:31 PM EDT 08/14/2024 1:31 PM EDT Narrative [facility] - 08/14/2024 2:00 PM EDT This assay has been modified from the wax pumper's specifications and has been validated with performance characteristics determined by [facility] in accordance with federal regulations under the Clinical Laboratory Act Amendment of 1988. The modification has not been approved by the FDA which has determined that such approval is not necessary. The test is for clinical purposes and should not be regarded as investigational or for research use. Dex Jackman MD BODY FLUIDS AND STOOLS ORDERABL ES Final Result Performing Organization Address [facility] de Phone Number [facility] [address] * Albumin, fluid (08/14/2024 12:31 PM EDT) Albumin, Fluid <1.5 g/dL 08/14/2024 2:00 PM EDT [facility] Comment:Reference range not established for this test. Abdominal Fluid ABDOMEN / Unknown 025 12:31 PM EDT 08/14/2024 1:31 PM EDT Narrative [facility] - 08/14/2024 2:00 PM EDT This assay has been modified from the wax pumper's specifications and has been validated with performance characteristics determined by [facility] in accordance with federal regulations under the Clinical Laboratory Act Amendment of 1988. The modification has not been approved by the FDA which has determined that such approval is not necessary. The test is for clinical purposes and should not be regarded as investigational or for research use. Dex Jackman MD BODY FLUIDS AND STOOLS ORDERABL ES Final Result Performing Organization Address [facility] de Phone Number [facility] [address] * Protein, Body fluid (08/14/2024 12:31 PM EDT) Protein, Fluid <3.0 g/dL 08/14/2024 6:15 PM EDT [facility] Comment:Reference range not established for this test. Ascitic Fluid ABDOMEN / Unknown 12:31 PM EDT 08/14/2024 1:31 PM EDT [facility] - 08/14/2024 6:15 PM EDT This assay has been modified from the wax pumper's specifications and has been validated with performance characteristics determined by [facility] in accordance with federal regulations under the Clinical Laboratory Act Amendment of 1988. The modification has not been approved by the FDA which has determined that such approval is not necessary. The test is for clinical purposes and should not be regarded as investigational or for research use. Dex Jackman MD BODY FLUIDS AND STOOLS ORDERABL ES Final Result [facility] [address] [place] [facility]. [address] * (ABNORMAL) Body fluid cell count (08/14/2024 12:31 PM EDT) Color, Fluid Yellow(A) Colorless, Pale Yellow 08/14/2024 3:16 PM EDT [facility] Clarity, Fluid Clear 08/14/2024 3:16 PM EDT [facility] Neutrophil %, Fluid 7 % 08/14/2024 3:16 PM EDT [facility] Lymphocytes %, Fluid 25 % 08/14/2024 3:16 PM EDT [facility] Mesothelial %, Fluid 7 % 08/14/2024 3:16 PM EDT [facility] Macrophage %, Fluid 61 % 08/14/2024 3:16 PM EDT [facility] RBC, Fluid 181 /uL 08/14/2024 3:16 PM EDT [facility] Total Nucleated Cells, Fluid 77 /uL 08/14/2024 3:16 PM EDT [facility] Comment:Total Nucleated Cell s represent WBCs and other nucleated cells in the fluid such as lining cells. Ascitic Fluid ABDOMEN / Unknown 12:31 PM EDT 08/14/2024 1:31 PM EDT us Dex Jackman MD BODY FLUIDS AND STOOLS ORDERABL ES Final Result Performing Organization Address [facility] Co de Phone Number [facility] [address] [place] [address] * (ABNORMAL) Ammonia (08/14/2024 9:33 AM EDT) Ammonia 248(HH) 27 - 90 ug/dL 08/14/2024 10:07 AM EDT [facility] Comment:Critical Result S_AM M:[id number] Called to and read back by: BRI JUDD RN at: 08/14/2024 10:06:42 by:KULDIP Plasma 08/14/2024 9:33 AM EDT 08/14/2024 9:43 AM EDT Mak Armenta [facility] BLOOD ORDERABLES Fin al Result Performing Organization Address [facility] Co de Phone Number [facility] [address] [place] [address]. [address] * Magnesium (08/14/2024 9:33 AM EDT) Pathologist [facility] Magnesium 2.2 1.5 - 2.5 mg/dL 08/14/2024 10:00 AM EDT [facility] Plasma 08/14/2024 9:33 AM EDT 08/14/2024 9:43 AM EDT Mak Armenta [facility] BLOOD ORDERABLES Fin al Result Performing Organization Address [facility] Co de Phone Number [facility] [address] [facility]. [address] * (ABNORMAL) Venous Blood Gas, Line/Syringe, STAT (08/14/2024 9:28 AM EDT) PH-Line Draw 7.32 7.32 - 7.42 08/14/2024 9:46 AM EDT [facility] PCO2-Line Draw 28(L) 41 - 51 mm Hg 08/14/2024 9:46 AM EDT [facility] PO2-Line Draw 46(H) 25 - 40 mm Hg 08/14/2024 9:46 AM EDT [facility] HCO3-Line Draw 16(L) 24 - 28 mmol/L 08/14/2024 9:46 AM EDT [facility] CO2 Content-Line Draw 15(L) 25 - 29 mmol/L 08/14/2024 9:46 AM EDT [facility] Base Excess-Line Draw -10.4(L) -2.0 - 3.0 mmol/L 08/14/2024 9:46 AM EDT [facility] %HBO2-Line Draw 75.1(H) 40.0 - 70.0 % 08/14/2024 9:46 AM EDT [facility] Carboxyhgb-Ludivina e Draw 2.2 % 08/14/2024 9:46 AM EDT [facility] Comment: CARBOXYHEMOGLOBIN (CO) REFERENCE RANGES: Non-Smokers: <2 % Smokers: <8 % TOXIC: >20 % Methemoglobin- Line Draw 1.5 0.0 - 1.5 % 08/14/2024 9:46 AM EDT [facility] Reduced Hemoglobin-Ludivina e Draw 21.2(H) 0.0 - 5.0 % 08/14/2024 9:46 AM EDT [facility] Venous, Line Draw 08/14/2024 9:28 AM EDT 08/14/2024 9:43 AM EDT us Mak Armenta [facility] BLOOD ORDERABLES Fin al Result [facility] [address] [place] [address], [facility] * (ABNORMAL) Renal Function Panel w/EGFR (08/14/2024 5:53 AM EDT) Sodium 139 133 - 146 mmol/L 08/14/2024 6:33 AM EDT [facility] Potassium 3.6 3.5 - 5.3 mmol/L 08/14/2024 6:33 AM EDT [facility] Chloride 112(H) 98 - 110 mmol/L 08/14/2024 6:33 AM EDT [facility] CO2 15(L) 21 - 33 mmol/L 08/14/2024 6:33 AM EDT [facility] Anion Gap 12 3 - 16 mmol/L 08/14/2024 6:33 AM EDT [facility] BUN 58(H) 7 - 25 mg/dL 08/14/2024 6:33 AM EDT [facility] Creatinine 3.33(H) 0.60 - 1.30 mg/dL 08/14/2024 6:33 AM EDT [facility] Glucose 143(H) 70 - 100 mg/dL 08/14/2024 6:33 AM EDT [facility] Calcium 9.2 8.6 - 10.3 mg/dL 08/14/2024 6:33 AM EDT [facility] Phosphorus 2.8 2.1 - 4.7 mg/dL 08/14/2024 6:45 AM EDT [facility] Albumin 3.8 3.5 - 5.7 g/dL 08/14/2024 6:45 AM EDT [facility] Osmolality, Calculated 307(H) 278 - 305 mOsm/kg 08/14/2024 6:33 AM EDT [facility] EGFR 23 08/14/2024 6:33 AM EDT [facility] Comment:As of 2021, the estimated GFR is calculated using the 2020 Chronic Kidney Disease Epidemiology Collaboration (CKD-EPI) equation. In line with the NKF-ASN Task Force Recommendations, this equation does not include a coefficient for race. A single eGFR value is calculated for each patient. The reference interval is >60 mL/min/1.73m2. eGFR values greater than 90 will be reported as >90mL/min/1.73m2. Reference: Luis Eduardo C, Talia M, Olivia DC, Emerita ND, Madelyn [place], Felicia [place], et al. A Unifying Approach for GFR Estimation: Recommendations of the NKF-ASN Task Force on Reassessing the inclusion of Race in Diagnosing Kidney Disease. Am J Kidney Dis. 2020. Plasma 08/14/2024 5:53 AM EDT 08/14/2024 6:01 AM EDT Terra Philip DO LAB BLOOD ORDERABLES Final Re sult Performing Organization Address [facility] Co de Phone Number [facility] [address] * (ABNORMAL) Protime-INR, AM (08/14/2024 5:53 AM EDT) Protime 22.9(H) 12.1 - 15.1 seconds 08/14/2024 6:22 AM EDT [facility] INR 2.0(H) 0.9 - 1.1 08/14/2024 6:22 AM EDT [facility] Comment: RECOMMENDED THERAPEUTIC RANGES USING INR : Stable oral anticoagulant therapy: 2.0 - 3.0 Mechanical prosthetic heart valve: 2.5 - 3.5 Recurrent acute myocardial infarction: 2.5 - 3.5 Plasma 08/14/2024 5:53 AM EDT 08/14/2024 6:01 AM EDT Maliha Will DO LAB BLOOD ORDERABLES Final Resul t Performing Organization Address [facility] Co de Phone Number [facility] [address] [facility] * (ABNORMAL) Hepatic Function Panel, AM (08/14/2024 5:53 AM EDT) Total Bilirubin 37.7(H) 0.0 - 1.5 mg/dL 08/14/2024 6:45 AM EDT [facility] Bilirubin, Direct 25.45(H) 0.00 - 0.40 mg/dL 08/14/2024 6:45 AM EDT [facility] AST 60(H) 13 - 39 U/L 08/14/2024 6:45 AM EDT [facility] ALT 34 7 - 52 U/L 08/14/2024 6:45 AM EDT [facility] Alkaline Phosphatase 81 36 - 125 U/L 08/14/2024 6:45 AM EDT [facility] Total Protein 4.8(L) 6.4 - 8.9 g/dL 08/14/2024 6:45 AM EDT [facility] Albumin 3.8 3.5 - 5.7 g/dL 08/14/2024 6:45 AM EDT [facility] Bilirubin, Indirect 12.25(H) 0.00 - 1.10 mg/dL 08/14/2024 6:45 AM EDT [facility] Plasma 08/14/2024 5:53 AM EDT 08/14/2024 6:01 AM EDT [facility] BLOOD ORDERABLES Final Resul t Performing Organization Address City/[facility]/ZIP Co de Phone Number [facility] [address] [facility] * Magnesium, AM (08/14/2024 5:53 AM EDT) Magnesium 2.3 1.5 - 2.5 mg/dL 08/14/2024 6:45 AM EDT [facility] Plasma 08/14/2024 5:53 AM EDT 08/14/2024 6:01 AM EDT [facility] BLOOD ORDERABLES Final Resul t Performing Organization Address [facility] Co de Phone Number [facility] [address] [facility] * (ABNORMAL) CBC, AM (08/14/2024 5:53 AM EDT) WBC 9.4 3.8 - 10.8 10E3/uL 08/14/2024 6:38 AM EDT [facility] RBC 3.11(L) 4.20 - 5.80 10E6/uL 08/14/2024 6:38 AM EDT [facility] Hemoglobin 11.0(L) 13.2 - 17.1 g/dL 08/14/2024 6:38 AM EDT [facility] Hematocrit 30.1(L) 38.5 - 50.0 % 08/14/2024 6:38 AM EDT [facility] MCV 96.6 80.0 - 100.0 fL 08/14/2024 6:38 AM EDT [facility] MCH 35.3(H) 27.0 - 33.0 pg 08/14/2024 6:38 AM EDT [facility] MCHC 36.5(H) 32.0 - 36.0 g/dL 08/14/2024 6:38 AM EDT [facility] RDW 21.9(H) 11.0 - 15.0 % 08/14/2024 6:38 AM EDT [facility] Platelets 61(L) 140 - 400 10E3/uL 08/14/2024 6:38 AM EDT [facility] MPV 8.6 7.5 - 11.5 fL 08/14/2024 6:38 AM EDT [facility] Whole Blood 08/14/2024 5:53 AM EDT 08/14/2024 6:01 AM EDT us Maliha Solis DO LAB BLOOD ORDERABLES Final Resul t [facility] [address] [place] [address], [facility] * (ABNORMAL) Venous Blood Gas, Line/Syringe, STAT (08/14/2024 3:15 AM EDT) PH-Line Draw 7.29(L) 7.32 - 7.42 08/14/2024 3:24 AM EDT [facility] PCO2-Line Draw 26(L) 41 - 51 mm Hg 08/14/2024 3:24 AM EDT [facility] PO2-Line Draw 54(H) 25 - 40 mm Hg 08/14/2024 3:24 AM EDT [facility] HCO3-Line Draw 15(L) 24 - 28 mmol/L 08/14/2024 3:24 AM EDT [facility] CO2 Content-Line Draw 13(L) 25 - 29 mmol/L 08/14/2024 3:24 AM EDT [facility] Base Excess-Line Draw -12.6(L) -2.0 - 3.0 mmol/L 08/14/2024 3:24 AM EDT [facility] %HBO2-Line Draw 81.3(H) 40.0 - 70.0 % 08/14/2024 3:24 AM EDT [facility] Carboxyhgb-Ludivina e Draw 1.9 % 08/14/2024 3:24 AM EDT [facility] Comment: CARBOXYHEMOGLOBIN (CO) REFERENCE RANGES: Non-Smokers: <2 % Smokers: <8 % TOXIC: >20 % Methemoglobin- Line Draw 0.3 0.0 - 1.5 % 08/14/2024 3:24 AM EDT [facility] Reduced Hemoglobin-Ludivina e Draw 16.5(H) 0.0 - 5.0 % 08/14/2024 3:24 AM EDT [facility] Venous, Line Draw 08/14/2024 3:15 AM EDT 08/14/2024 3:21 AM EDT Terra Philip DO LAB BLOOD ORDERABLES Final Re sult Performing Organization Address [facility] Co de Phone Number [facility] [address] * Transfuse Platelets Transfusion Rate: Per dept routine (08/14/2024 2:32 AM EDT) Terra Tamera DO NURSING TREATMENT ORDERABLES - BLOOD ADMIN Final Result Performing Organization Address [facility] Co de Phone Number EXTERNAL * Transfuse Platelets Transfusion Rate: Per dept routine, 1 Units (08/14/2024 2:32 AM EDT) [facility] DO NURSING TREATMENT ORDERABLES - BLOOD ADMIN Final Result Performing Organization Address City/[facility] Co de Phone Number EXTERNAL * (ABNORMAL) Renal Function Panel w/EGFR, STAT (08/14/2024 2:03 AM EDT) Sodium 136 133 - 146 mmol/L 08/14/2024 2:34 AM EDT [facility] Potassium 3.5 3.5 - 5.3 mmol/L 08/14/2024 2:34 AM EDT [facility] Chloride 112(H) 98 - 110 mmol/L 08/14/2024 2:34 AM EDT [facility] CO2 14(L) 21 - 33 mmol/L 08/14/2024 2:34 AM EDT [facility] Anion Gap 10 3 - 16 mmol/L 08/14/2024 2:34 AM EDT [facility] BUN 61(H) 7 - 25 mg/dL 08/14/2024 2:34 AM EDT [facility] Creatinine 3.62(H) 0.60 - 1.30 mg/dL 08/14/2024 2:34 AM EDT [facility] Glucose 129(H) 70 - 100 mg/dL 08/14/2024 2:34 AM EDT [facility] Calcium 8.6 8.6 - 10.3 mg/dL 08/14/2024 2:34 AM EDT [facility] Phosphorus 3.4 2.1 - 4.7 mg/dL 08/14/2024 2:34 AM EDT [facility] Albumin 3.6 3.5 - 5.7 g/dL 08/14/2024 2:34 AM EDT [facility] Osmolality, Calculated 301 278 - 305 mOsm/kg 08/14/2024 2:34 AM EDT [facility] EGFR 21 08/14/2024 2:34 AM EDT [facility] Comment:As of 2021, the estimated GFR is calculated using the 2020 Chronic Kidney Disease Epidemiology Collaboration (CKD-EPI) equation. In line with the NKF-ASN Task Force Recommendations, this equation does not include a coefficient for race. A single eGFR value is calculated for each patient. The reference interval is >60 mL/min/1.73m2. eGFR values greater than 90 will be reported as >90mL/min/1.73m2. Reference: Luis Eduardo C, Talia M, Olivia DC, Emerita ND, Madelyn [place], Felicia [place], et al. A Unifying Approach for GFR Estimation: Recommendations of the NKF-ASN Task Force on Reassessing the inclusion of Race in Diagnosing Kidney Disease. Am J Kidney Dis. 2020. Plasma 08/14/2024 2:03 AM EDT 08/14/2024 2:06 AM EDT us Terra Philip DO LAB BLOOD ORDERABLES Final Re sult [facility] [address] * Antibody Screen (08/14/2024 12:35 AM EDT) Antibody Screen Negative 08/14/2024 1:15 AM EDT [facility] Blood 08/14/2024 12:3 5 AM EDT 08/14/2024 12:41 AM EDT Narrative [facility] - 08/14/2024 1:21 AM EDT Testing performed by [facility] Transfusion Service Mariposa Ramirez MD BLOOD BANK TEST ORDERABLES Final Result Performing Organization Address City/[facility]/ZIP Co de Phone Number [facility] [address] * ABO/Rh (08/14/2024 12:35 AM EDT) ABO Grouping O 08/14/2024 1:06 AM EDT [facility] Rh Type Positive 08/14/2024 1:06 AM EDT [facility] Blood 08/14/2024 12:3 5 AM EDT 08/14/2024 12:41 AM EDT us Mariposa Ramirez MD BLOOD BANK TEST ORDERABLES Final Result Performing Organization Address City/[facility]/ZIP Co de Phone Number [facility] [address] [facility]. [address] * Cytology, Peritoneal Fluid (08/14/2024 12:00 AM EDT) Peritoneal Fluid 08/14/2024 08/15/19 Narrative [facility] - 08/14/2024 12:00 AM EDT CASE: [id number] PATIENT: BLAIR GILBERT Clinical History: 39M with decompensated EtOH cirrhosis Clinical Diagnosis: 39M with decompensated EtOH cirrhosis Specimen Source: A. Peritoneal Fluid Gross Description: Received 25ml Yellow Fluid CPT Code(s): 06443 X 1 Additional Information: DIAGNOSIS: Peritoneal Fluid (ThinPrep only): NO MALIGNANT CELLS IDENTIFIED INFLAMMATION: Mild acute and chronic inflammation Initial Evaluation performed by Jess CHAMBERS(ASCP) Home Health Care Social Worker Electronically signed 08/15/2024 11:12:00 AM The Diagnostician signing this report is located at [facility], [address] [place] [address], [place], [address], , CLIA ID: [id number] Final Diagnosis performed by RORO CABALLERO MD, PhD Pathologist Electronically signed 08/15/2024 11:27:00 AM The Pathologist signing this report is located at [facility], [address] [place] [address], [address], , CLIA ID: [id number] us Dex Jackman MD PATHOLOGY/CYTOLOGY ORDERABLES F inal Result [facility] * (ABNORMAL) CBC (08/13/2024 8:07 PM EDT) WBC 7.4 3.8 - 10.8 10E3/uL 08/13/2024 8:59 PM EDT [facility] RBC 2.96(L) 4.20 - 5.80 10E6/uL 08/13/2024 8:59 PM EDT [facility] Hemoglobin 10.4(L) 13.2 - 17.1 g/dL 08/13/2024 8:59 PM EDT [facility] Hematocrit 28.6(L) 38.5 - 50.0 % 08/13/2024 8:59 PM EDT [facility] MCV 96.7 80.0 - 100.0 fL 08/13/2024 8:59 PM EDT [facility] MCH 35.1(H) 27.0 - 33.0 pg 08/13/2024 8:59 PM EDT [facility] MCHC 36.3(H) 32.0 - 36.0 g/dL 08/13/2024 8:59 PM EDT [facility] RDW 21.5(H) 11.0 - 15.0 % 08/13/2024 8:59 PM EDT [facility] Platelets 47(L) 140 - 400 10E3/uL 08/13/2024 8:59 PM EDT [facility] Comment: CNV Specimen checked for clots. None detected. MPV 9.1 7.5 - 11.5 fL 08/13/2024 8:59 PM EDT [facility] Whole Blood 08/13/2024 8:07 PM EDT 08/13/2024 8:25 PM EDT us Mariposa Ramirez MD LAB BLOOD ORDERABLES Final Result Performing Organization Address [facility]/ZIP Co de Phone Number [facility] [address] * Magnesium, STAT (08/13/2024 8:07 PM EDT) Magnesium 2.3 1.5 - 2.5 mg/dL 08/13/2024 9:19 PM EDT [facility] Plasma 08/13/2024 8:07 PM EDT 08/13/2024 8:25 PM EDT us Mak Armenta CNP LAB BLOOD ORDERABLES Fin al Result Performing Organization Address [facility] Co de Phone Number [facility] [address] [facility]. [address] * (ABNORMAL) Renal Function Panel w/EGFR (08/13/2024 8:07 PM EDT) Sodium 135 133 - 146 mmol/L 08/13/2024 9:19 PM EDT [facility] Potassium 2.8(LL) 3.5 - 5.3 mmol/L 08/13/2024 9:19 PM EDT [facility] Comment:K CRITICAL VALUE WAS PREVIOUSLY CALLED Chloride 109 98 - 110 mmol/L 08/13/2024 9:19 PM EDT [facility] CO2 14(L) 21 - 33 mmol/L 08/13/2024 9:19 PM EDT [facility] Anion Gap 12 3 - 16 mmol/L 08/13/2024 9:19 PM EDT [facility] BUN 61(H) 7 - 25 mg/dL 08/13/2024 9:19 PM EDT [facility] Creatinine 3.53(H) 0.60 - 1.30 mg/dL 08/13/2024 9:19 PM EDT [facility] Glucose 121(H) 70 - 100 mg/dL 08/13/2024 9:19 PM EDT [facility] Calcium 8.8 8.6 - 10.3 mg/dL 08/13/2024 9:19 PM EDT [facility] Phosphorus 4.4 2.1 - 4.7 mg/dL 08/13/2024 9:19 PM EDT [facility] Albumin 3.4(L) 3.5 - 5.7 g/dL 08/13/2024 9:19 PM EDT [facility] Osmolality, Calculated 299 278 - 305 mOsm/kg 08/13/2024 9:19 PM EDT [facility] EGFR 21 08/13/2024 9:19 PM EDT [facility] Comment:As of 2021, the estimated GFR is calculated using the 2020 Chronic Kidney Disease Epidemiology Collaboration (CKD-EPI) equation. In line with the NKF-ASN Task Force Recommendations, this equation does not include a coefficient for race. A single eGFR value is calculated for each patient. The reference interval is >60 mL/min/1.73m2. eGFR values greater than 90 will be reported as >90mL/min/1.73m2. Reference: Luis Eduardo C, Talia M, Olivia DC, Emerita ND, Madelyn CA, Felicia LA, et al. A Unifying Approach for GFR Estimation: Recommendations of the NKF-ASN Task Force on Reassessing the inclusion of Race in Diagnosing Kidney Disease. Am J Kidney Dis. 2020. Plasma 08/13/2024 8:07 PM EDT 08/13/2024 8:25 PM EDT us Mak Armenta [facility] BLOOD ORDERABLES Fin al Result [facility] [address] [place] [address], [facility] * CARISA Rhythm Strip - Scan (08/13/2024 7:35 PM EDT) us Scanning Uchhi SCAN DOCS - NO RESULTS Final Res ult * X-ray Portable Chest (08/13/2024 3:36 PM EDT) Anatomical Region Laterality Modality Chest Radiographic Graciela ging 08/13/2024 3:04 PM EDT Impressions 08/13/2024 4:05 PM EDT IMPRESSION: Right IJ approach central venous catheter tip projects over the SVC. No evidence of pneumothorax. Report Verified by: Josr Francis DO at 08/13/2024 4:05 PM EDT Narrative 08/13/2024 4:05 PM EDT EXAM: XR PORTABLE CHEST INDICATION: Other - Must Specify in Comments; confirm R IJ CVC TECHNIQUE: 1 view of the chest. COMPARISON: 21 hours prior FINDINGS: Medical Devices: Right IJ approach central venous catheter tip projects over the SVC. Heart and Mediastinum: Unchanged. Lungs and Pleura: Mild left basilar atelectasis appears unchanged. No new focal consolidation. No sizable pleural effusion or evidence of pneumothorax. Bones and Soft tissues: Unchanged. Procedure Note Josr Francis DO - 08/13/2024 EXAM: XR PORTABLE CHEST INDICATION: Other - Must Specify in Comments; confirm R IJ CVC TECHNIQUE: 1 view of the chest. COMPARISON: 21 hours prior FINDINGS: Medical Devices: Right IJ approach central venous catheter tip projectsover the SVC. Heart and Mediastinum: Unchanged. Lungs and Pleura: Mild left basilar atelectasis appears unchanged. No newfocal consolidation. No sizable pleural effusion or evidence ofpneumothorax. Bones and Soft tissues: Unchanged. IMPRESSION: Right IJ approach central venous catheter tip projects over the SVC. Noevidence of pneumothorax. Report Verified by: Josr Francis DO at 08/13/2024 4:05 PM EDT Dex Jackman MD IMG DIAGNOSTIC IMAGING ORDERABL ES Final Result * (ABNORMAL) Venous Blood Gas, Line/Syringe, STAT (08/13/2024 3:17 PM EDT) PH-Line Draw 7.24(L) 7.32 - 7.42 08/13/2024 3:31 PM EDT [facility] PCO2-Line Draw 27(L) 41 - 51 mm Hg 08/13/2024 3:31 PM EDT [facility] PO2-Line Draw 69(H) 25 - 40 mm Hg 08/13/2024 3:31 PM EDT [facility] HCO3-Line Draw 14(L) 24 - 28 mmol/L 08/13/2024 3:31 PM EDT [facility] CO2 Content-Line Draw 12(L) 25 - 29 mmol/L 08/13/2024 3:31 PM EDT [facility] Base Excess-Line Draw -14.4(L) -2.0 - 3.0 mmol/L 08/13/2024 3:31 PM EDT [facility] %HBO2-Line Draw 90.6(H) 40.0 - 70.0 % 08/13/2024 3:31 PM EDT [facility] Carboxyhgb-Ludivina e Draw 2.7 % 08/13/2024 3:31 PM EDT [facility] Comment: CARBOXYHEMOGLOBIN (CO) REFERENCE RANGES: Non-Smokers: <2 % Smokers: <8 % TOXIC: >20 % Methemoglobin- Line Draw 0.9 0.0 - 1.5 % 08/13/2024 3:31 PM EDT [facility] Reduced Hemoglobin-Ludivina e Draw 5.8(H) 0.0 - 5.0 % 08/13/2024 3:31 PM EDT [facility] Venous, Line Draw 08/13/2024 3:17 PM EDT 08/13/2024 3:28 PM EDT us Mak Armenta [employer] [facility] BLOOD ORDERABLES Fin al Result [facility] [address] [place] [address], [facility] * US Abdomen Complete (08/13/2024 3:03 PM EDT) Anatomical Region Laterality Modality Abdomen Ultrasound 08/13/2024 3:02 PM EDT Impressions 08/13/2024 5:08 PM EDT IMPRESSION: ABDOMEN Cirrhotic liver morphology. No focal lesion. Splenomegaly. Moderate volume ascites. LIVER DOPPLER Patent hepatic vasculature. Report Verified by: Cy Alston MD at 08/13/2024 5:08 PM EDT Narrative 08/13/2024 5:08 PM EDT EXAM: US ABDOMEN COMPLETE EXAM: US DUPLEX [id number] COMPLETE INDICATION: Ascites; eval acsites, PVT COMPARISON: 07/29/2024 TECHNIQUE: Grayscale imaging was performed for evaluation of the liver, gallbladder, common bile duct, pancreas, spleen, and kidneys; color and spectral (duplex) Doppler analysis of the hepatic vasculature was also performed. FINDINGS: Liver: Nodular liver contour with increased echogenicity and coarse echotexture. No focal lesion. Biliary/CBD: 6.8 mm. No intra or extrahepatic ductal dilatation. Gallbladder: Fluid distended. Layering tiny calculi/sludge noted. Negative sonographic Mehta's sign. Pancreas: Obscured by overlying bowel gas. Right kidney: 11.7 cm in length. Increased parenchymal echogenicity. No hydronephrosis. Left kidney: 12.2 cm in length. Increased parenchymal echogenicity. No hydronephrosis. Spleen: 20.5 cm. Other: Moderate volume ascites. DOPPLER: Hepatic Veins: Duplex evaluation of the hepatic vasculature demonstrates normal flow in the right, middle and left hepatic veins. Portal Veins: The right, left and main portal vein demonstrate hepatopetal flow. Hepatic Arteries: Right, main and left hepatic arteries demonstrate normal waveforms. Resistive Indices Main hepatic artery: 0.74 Right hepatic artery: 0.78 Left hepatic artery: 0.6- 0.8 Procedure Note Cy Alston MD - 08/13/2024 EXAM: US ABDOMEN COMPLETE EXAM: US DUPLEX [id number] COMPLETE INDICATION: Ascites; eval acsites, PVT COMPARISON: 07/29/2024 TECHNIQUE: Grayscale imaging was performed for evaluation of the liver,gallbladder, common bile duct, pancreas, spleen, and kidneys; color andspectral (duplex) Doppler analysis of the hepatic vasculature was alsoperformed. FINDINGS: Liver: Nodular liver contour with increased echogenicity and coarseechotexture. No focal lesion. Biliary/CBD: 6.8 mm. No intra or extrahepatic ductal dilatation. Gallbladder: Fluid distended. Layering tiny calculi/sludge noted. Negativesonographic Mehta's sign. Pancreas: Obscured by overlying bowel gas. Right kidney: 11.7 cm in length. Increased parenchymal echogenicity. Nohydronephrosis. Left kidney: 12.2 cm in length. Increased parenchymal echogenicity. Nohydronephrosis. Spleen: 20.5 cm. Other: Moderate volume ascites. DOPPLER: Hepatic Veins: Duplex evaluation of the hepatic vasculature demonstratesnormal flow in the right, middle and left hepatic veins. Portal Veins: The right, left and main portal vein demonstrate hepatopetalflow. Hepatic Arteries: Right, main and left hepatic arteries demonstrate normalwaveforms. Resistive Indices Main hepatic artery: 0.74 Right hepatic artery: 0.78 Left hepatic artery: 0.6- 0.8 IMPRESSION: ABDOMEN Cirrhotic liver morphology. No focal lesion. Splenomegaly. Moderate volume ascites. LIVER DOPPLER Patent hepatic vasculature. Report Verified by: Cy Alston MD at 08/13/2024 5:08 PM EDT us Mak Armenta [facility] US ORDERABLES Final Result * US Duplex [id number] Comp (08/13/2024 3:03 PM EDT) Anatomical Region Laterality Modality Abdomen, Pelvis, Testes, Vascular Ultrasound 08/13/2024 3:02 PM EDT Impressions 08/13/2024 5:08 PM EDT IMPRESSION: ABDOMEN Cirrhotic liver morphology. No focal lesion. Splenomegaly. Moderate volume ascites. LIVER DOPPLER Patent hepatic vasculature. Report Verified by: Cy Alston MD at 08/13/2024 5:08 PM EDT Narrative 08/13/2024 5:08 PM EDT EXAM: US ABDOMEN COMPLETE EXAM: US DUPLEX [id number] COMPLETE INDICATION: Ascites; eval acsites, PVT COMPARISON: 07/29/2024 TECHNIQUE: Grayscale imaging was performed for evaluation of the liver, gallbladder, common bile duct, pancreas, spleen, and kidneys; color and spectral (duplex) Doppler analysis of the hepatic vasculature was also performed. FINDINGS: Liver: Nodular liver contour with increased echogenicity and coarse echotexture. No focal lesion. Biliary/CBD: 6.8 mm. No intra or extrahepatic ductal dilatation. Gallbladder: Fluid distended. Layering tiny calculi/sludge noted. Negative sonographic Mehta's sign. Pancreas: Obscured by overlying bowel gas. Right kidney: 11.7 cm in length. Increased parenchymal echogenicity. No hydronephrosis. Left kidney: 12.2 cm in length. Increased parenchymal echogenicity. No hydronephrosis. Spleen: 20.5 cm. Other: Moderate volume ascites. DOPPLER: Hepatic Veins: Duplex evaluation of the hepatic vasculature demonstrates normal flow in the right, middle and left hepatic veins. Portal Veins: The right, left and main portal vein demonstrate hepatopetal flow. Hepatic Arteries: Right, main and left hepatic arteries demonstrate normal waveforms. Resistive Indices Main hepatic artery: 0.74 Right hepatic artery: 0.78 Left hepatic artery: 0.6- 0.8 Procedure Note Cy Alston MD - 08/13/2024 EXAM: US ABDOMEN COMPLETE EXAM: US DUPLEX [id number] COMPLETE INDICATION: Ascites; eval acsites, PVT COMPARISON: 07/29/2024 TECHNIQUE: Grayscale imaging was performed for evaluation of the liver,gallbladder, common bile duct, pancreas, spleen, and kidneys; color andspectral (duplex) Doppler analysis of the hepatic vasculature was alsoperformed. FINDINGS: Liver: Nodular liver contour with increased echogenicity and coarseechotexture. No focal lesion. Biliary/CBD: 6.8 mm. No intra or extrahepatic ductal dilatation. Gallbladder: Fluid distended. Layering tiny calculi/sludge noted. Negativesonographic Mehta's sign. Pancreas: Obscured by overlying bowel gas. Right kidney: 11.7 cm in length. Increased parenchymal echogenicity. Nohydronephrosis. Left kidney: 12.2 cm in length. Increased parenchymal echogenicity. Nohydronephrosis. Spleen: 20.5 cm. Other: Moderate volume ascites. DOPPLER: Hepatic Veins: Duplex evaluation of the hepatic vasculature demonstratesnormal flow in the right, middle and left hepatic veins. Portal Veins: The right, left and main portal vein demonstrate hepatopetalflow. Hepatic Arteries: Right, main and left hepatic arteries demonstrate normalwaveforms. Resistive Indices Main hepatic artery: 0.74 Right hepatic artery: 0.78 Left hepatic artery: 0.6- 0.8 IMPRESSION: ABDOMEN Cirrhotic liver morphology. No focal lesion. Splenomegaly. Moderate volume ascites. LIVER DOPPLER Patent hepatic vasculature. Report Verified by: Cy Alston MD at 08/13/2024 5:08 PM EDT Feliciano Freeman MD [facility]LES Final Resul t * CENTRAL LINE SINGLE LUMEN PERFORMABLE (08/13/2024 1:37 PM EDT) Narrative Mathieu Becker MD - 08/13/2024 1:37 PM EDT Tavo Soni MD 08/13/2024 1:40 PM Central Line Date/Time: 08/13/2024 1:37 PM Performed by: DILIP Sylvesteronsent: Verbal consent obtained. Consent given by: patient Catheter type: triple lumen Indication(s): vascular access Patient location at time of line placement: ICU Conditions of line placement: sterile Preparation: skin prepped with 2% chlorhexidine Location details: right internal jugular Catheter size: 7 Fr Catheter fully inserted (hub at skin): yes Insertion guided by: ultrasound guided Number of attempts: 1 Successful placement: yes Sutured: 2-0 Post procedure chest x-ray ordered: yes Complications: none Tavo Soni MD PROCEDURE/MINOR SURGICAL ORD ERABLES Final Result * Magnesium (08/13/2024 12:48 PM EDT) Pathologist [facility] Magnesium 2.5 1.5 - 2.5 mg/dL 08/13/2024 3:49 PM EDT [facility] Plasma 08/13/2024 12:4 8 PM EDT 08/13/2024 3:07 PM EDT Raza Rhoades MD LAB BLOOD ORDERABLES Final Resul t [facility] [address] [place] [address], [facility] * (ABNORMAL) Renal Function Panel w/EGFR (08/13/2024 12:48 PM EDT) Sodium 134 133 - 146 mmol/L 08/13/2024 3:49 PM EDT [facility] Potassium 2.9(LL) 3.5 - 5.3 mmol/L 08/13/2024 3:49 PM EDT [facility] Comment:K CRITICAL VALUE WAS PREVIOUSLY CALLED Chloride 107 98 - 110 mmol/L 08/13/2024 3:49 PM EDT [facility] CO2 15(L) 21 - 33 mmol/L 08/13/2024 3:49 PM EDT [facility] Anion Gap 12 3 - 16 mmol/L 08/13/2024 3:49 PM EDT [facility] BUN 64(H) 7 - 25 mg/dL 08/13/2024 3:49 PM EDT [facility] Creatinine 3.91(H) 0.60 - 1.30 mg/dL 08/13/2024 3:49 PM EDT [facility] Glucose 141(H) 70 - 100 mg/dL 08/13/2024 3:49 PM EDT [facility] Calcium 9.2 8.6 - 10.3 mg/dL 08/13/2024 3:49 PM EDT [facility] Phosphorus 4.4 2.1 - 4.7 mg/dL 08/13/2024 3:49 PM EDT [facility] Albumin 3.7 3.5 - 5.7 g/dL 08/13/2024 3:49 PM EDT [facility] Osmolality, Calculated 299 278 - 305 mOsm/kg 08/13/2024 3:49 PM EDT [facility] EGFR 19 08/13/2024 3:49 PM EDT [facility] Comment:As of 2021, the estimated GFR is calculated using the 2020 Chronic Kidney Disease Epidemiology Collaboration (CKD-EPI) equation. In line with the NKF-ASN Task Force Recommendations, this equation does not include a coefficient for race. A single eGFR value is calculated for each patient. The reference interval is >60 mL/min/1.73m2. eGFR values greater than 90 will be reported as >90mL/min/1.73m2. Reference: Luis Eduardo C, Talia M, Olivia DC, Emerita ND, Madelyn CA, Felicia LA, et al. A Unifying Approach for GFR Estimation: Recommendations of the NKF-ASN Task Force on Reassessing the inclusion of Race in Diagnosing Kidney Disease. Am J Kidney Dis. 2020. Plasma 08/13/2024 12:4 8 PM EDT 08/13/2024 3:14 PM EDT us Mak Armenta [employer] LAB BLOOD ORDERABLES Fin al Result Performing Organization Address [facility] Co de Phone Number [facility] [address] * CARISA Rhythm Strip - Scan (08/13/2024 7:58 AM EDT) us Scanning Uchhim SCAN DOCS - NO RESULTS Final Res ult * (ABNORMAL) Urinalysis, Microscopic (08/13/2024 4:51 AM EDT) RBC, UA 0-2(A) 0 - 3 /HPF 08/13/2024 5:26 AM EDT [facility] Comment:Confirmed by manual microscopy. WBC, UA 0-3 0-3,3-5 /HPF 08/13/2024 5:26 AM EDT [facility] Comment:Confirmed by manual microscopy. Squam Epithel, UA 0-3 0-3,3-5 /HPF 08/13/2024 5:26 AM EDT [facility] Comment:Confirmed by manual microscopy. Urine 08/13/2024 4:51 AM EDT 08/13/2024 5:12 AM EDT us Edwige Bernard MD URINE ORDERABLES Final Result Performing Organization Address [facility] Co de Phone Number [facility] [address] [facility] * Lactic Acid (08/13/2024 4:51 AM EDT) Lactate 0.5 0.5 - 2.2 mmol/L 08/13/2024 5:30 AM EDT [facility] Plasma 08/13/2024 4:51 AM EDT 08/13/2024 5:04 AM EDT us Mariposa Ramirez MD LAB BLOOD ORDERABLES Final Result Performing Organization Address City/[facility]/ZIP Co de Phone Number [facility] [address] * Urea nitrogen, random urine (08/13/2024 4:51 AM EDT) Urea Nitrogen, Ur 494 mg/dL 08/13/2024 5:31 AM EDT [facility] Comment:Reference range not established for this test. Urine 08/13/2024 4:51 AM EDT 08/13/2024 5:04 AM EDT us Terra Tamera DO URINE ORDERABLES Final Result Performing Organization Address [facility] Co de Phone Number [facility] [address] * Creatinine, urine, random (08/13/2024 4:51 AM EDT) Creatinine, Urine 54.60 mg/dL 08/13/2024 5:28 AM EDT [facility] Comment:Reference range not established for this test. Urine 08/13/2024 4:51 AM EDT 08/13/2024 5:03 AM EDT us Terra Tamera DO URINE ORDERABLES Final Result Performing Organization Address [facility] Co de Phone Number [facility] [address] * Sodium, urine, random (08/13/2024 4:51 AM EDT) Sodium, Ur 81 mmol/L 08/13/2024 5:28 AM EDT [facility] Comment:Reference range not established for this test. Urine 08/13/2024 4:51 AM EDT 08/13/2024 5:03 AM EDT us Terra Tamera DO URINE ORDERABLES Final Result Performing Organization Address City/[facility]/ZIP Co de Phone Number [facility] [address] * (ABNORMAL) Protime-INR (08/13/2024 4:51 AM EDT) Protime 28.6(H) 12.1 - 15.1 seconds 08/13/2024 5:23 AM EDT [facility] INR 2.6(H) 0.9 - 1.1 08/13/2024 5:23 AM EDT [facility] Comment: RECOMMENDED THERAPEUTIC RANGES USING INR : Stable oral anticoagulant therapy: 2.0 - 3.0 Mechanical prosthetic heart valve: 2.5 - 3.5 Recurrent acute myocardial infarction: 2.5 - 3.5 Plasma 08/13/2024 4:51 AM EDT 08/13/2024 5:01 AM EDT us Edwige Bernard MD LAB BLOOD ORDERABLES Final Res ult [facility] [address] [place] [address] * (ABNORMAL) Hepatic Function Panel (08/13/2024 4:51 AM EDT) Total Bilirubin 33.4(H) 0.0 - 1.5 mg/dL 08/13/2024 5:51 AM EDT [facility] Bilirubin, Direct 21.43(H) 0.00 - 0.40 mg/dL 08/13/2024 5:51 AM EDT [facility] AST 37 13 - 39 U/L 08/13/2024 5:51 AM EDT [facility] ALT 27 7 - 52 U/L 08/13/2024 5:51 AM EDT [facility] Alkaline Phosphatase 71 36 - 125 U/L 08/13/2024 5:51 AM EDT [facility] Total Protein 4.6(L) 6.4 - 8.9 g/dL 08/13/2024 5:51 AM EDT [facility] Albumin 3.3(L) 3.5 - 5.7 g/dL 08/13/2024 5:51 AM EDT [facility] Bilirubin, Indirect 11.97(H) 0.00 - 1.10 mg/dL 08/13/2024 5:51 AM EDT [facility] Plasma 08/13/2024 4:51 AM EDT 08/13/2024 5:01 AM EDT Edwige Bernard MD LAB BLOOD ORDERABLES Final Res ult Performing Organization Address [facility]/ZIP Co de Phone Number [facility] [address] * Magnesium (08/13/2024 4:51 AM EDT) Magnesium 2.4 1.5 - 2.5 mg/dL 08/13/2024 5:51 AM EDT [facility] Plasma 08/13/2024 4:51 AM EDT 08/13/2024 5:01 AM EDT Edwige Bernard MD LAB BLOOD ORDERABLES Final Res ult Performing Organization Address [facility] de Phone Number [facility] [address] * (ABNORMAL) Renal Function Panel w/EGFR (08/13/2024 4:51 AM EDT) Sodium 132(L) 133 - 146 mmol/L 08/13/2024 5:51 AM EDT [facility] Potassium 2.7(LL) 3.5 - 5.3 mmol/L 08/13/2024 5:51 AM EDT [facility] Chloride 105 98 - 110 mmol/L 08/13/2024 5:51 AM EDT [facility] CO2 12(L) 21 - 33 mmol/L 08/13/2024 5:51 AM EDT [facility] Anion Gap 15 3 - 16 mmol/L 08/13/2024 5:51 AM EDT [facility] BUN 64(H) 7 - 25 mg/dL 08/13/2024 5:51 AM EDT [facility] Creatinine 4.10(H) 0.60 - 1.30 mg/dL 08/13/2024 5:51 AM EDT [facility] Glucose 126(H) 70 - 100 mg/dL 08/13/2024 5:51 AM EDT [facility] Calcium 8.5(L) 8.6 - 10.3 mg/dL 08/13/2024 5:51 AM EDT [facility] Phosphorus 5.2(H) 2.1 - 4.7 mg/dL 08/13/2024 5:51 AM EDT [facility] Albumin 3.3(L) 3.5 - 5.7 g/dL 08/13/2024 5:51 AM EDT [facility] Osmolality, Calculated 294 278 - 305 mOsm/kg 08/13/2024 5:51 AM EDT [facility] EGFR 18 08/13/2024 5:51 AM EDT [facility] Comment:As of 2021, the estimated GFR is calculated using the 2020 Chronic Kidney Disease Epidemiology Collaboration (CKD-EPI) equation. In line with the NKF-ASN Task Force Recommendations, this equation does not include a coefficient for race. A single eGFR value is calculated for each patient. The reference interval is >60 mL/min/1.73m2. eGFR values greater than 90 will be reported as >90mL/min/1.73m2. Reference: Luis Eduardo C, Talia M, Olivia DC, Emerita ND, Madelyn CA, Felicia LA, et al. A Unifying Approach for GFR Estimation: Recommendations of the NKF-ASN Task Force on Reassessing the inclusion of Race in Diagnosing Kidney Disease. Am J Kidney Dis. 2020. Plasma 08/13/2024 4:51 AM EDT 08/13/2024 5:01 AM EDT us Edwige Bernard MD LAB BLOOD ORDERABLES Final Res ult [facility] [address] [place] [address], [facility] * (ABNORMAL) Differential (08/13/2024 4:51 AM EDT) Differential Comments See Note 08/13/2024 5:53 AM EDT [facility] Comment:Acanthocytes Present Scan Result PERFORMED 08/13/2024 5:53 AM EDT [facility] Neutrophils Relative 81.7(H) 40.0 - 80.0 % 08/13/2024 5:53 AM EDT [facility] Lymphocytes Relative 9.7(L) 15.0 - 45.0 % 08/13/2024 5:53 AM EDT [facility] Monocytes Relative 5.6 0.0 - 12.0 % 08/13/2024 5:53 AM EDT [facility] Eosinophils Relative 2.7 0.0 - 8.0 % 08/13/2024 5:53 AM EDT [facility] Basophils Relative 0.3 0.0 - 1.0 % 08/13/2024 5:53 AM EDT [facility] nRBC 0 0 - 0 /100 WBC 08/13/2024 5:53 AM EDT [facility] Neutrophils Absolute 5,964 1,500 - 7,800 /uL 08/13/2024 5:53 AM EDT [facility] Lymphocytes Absolute 708(L) 850 - 3,900 /uL 08/13/2024 5:53 AM EDT [facility] Monocytes Absolute 409 200 - 950 /uL 08/13/2024 5:53 AM EDT [facility] Eosinophils Absolute 197 15 - 500 /uL 08/13/2024 5:53 AM EDT [facility] Basophils Absolute 22 0 - 200 /uL 08/13/2024 5:53 AM EDT [facility] PLT Morphology Platelet morphology appears normal 08/13/2024 5:53 AM EDT [facility] Whole Blood 08/13/2024 4:51 AM EDT 08/13/2024 5:01 AM EDT us Edwige Bernard MD LAB BLOOD ORDERABLES Final Res ult [facility] [address] * (ABNORMAL) CBC (08/13/2024 4:51 AM EDT) WBC 7.3 3.8 - 10.8 10E3/uL 08/13/2024 5:53 AM EDT [facility] RBC 3.00(L) 4.20 - 5.80 10E6/uL 08/13/2024 5:53 AM EDT [facility] Hemoglobin 10.6(L) 13.2 - 17.1 g/dL 08/13/2024 5:53 AM EDT [facility] Hematocrit 28.9(L) 38.5 - 50.0 % 08/13/2024 5:53 AM EDT [facility] MCV 96.2 80.0 - 100.0 fL 08/13/2024 5:53 AM EDT [facility] MCH 35.4(H) 27.0 - 33.0 pg 08/13/2024 5:53 AM EDT [facility] MCHC 36.8(H) 32.0 - 36.0 g/dL 08/13/2024 5:53 AM EDT [facility] RDW 21.7(H) 11.0 - 15.0 % 08/13/2024 5:53 AM EDT [facility] Platelets 36(L) 140 - 400 10E3/uL 08/13/2024 5:53 AM EDT [facility] Comment: Specimen checked for clots. None detected. _Platelets Appear Decreased _Platelet Morphology Normal Platelet Estimate Decreased 08/13/2024 5:53 AM EDT [facility] MPV 9.1 7.5 - 11.5 fL 08/13/2024 5:53 AM EDT [facility] Whole Blood 08/13/2024 4:51 AM EDT 08/13/2024 5:01 AM EDT Narrative [facility] - 08/13/2024 5:53 AM EDT Peripheral blood smear was scanned per review criteria approved by the laboratory medical claims processor. us Edwige Bernard MD LAB BLOOD ORDERABLES Final Res ult [facility] [address] [place] [address], [facility] * (ABNORMAL) Urinalysis-Macroscopic w/Rfx to Microsco (08/13/2024 4:51 AM EDT) Color, UA Yellow Yellow,Straw 08/13/2024 5:19 AM EDT [facility] Clarity, UA Clear Clear 08/13/2024 5:19 AM EDT [facility] Specific [place], UA 1.011 1.005 - 1.035 08/13/2024 5:19 AM EDT [facility] pH, UA 6.0 5.0 - 8.0 08/13/2024 5:19 AM EDT [facility] Protein, UA Negative Negative mg/dL 08/13/2024 5:19 AM EDT [facility] Glucose, UA Negative Negative mg/dL 08/13/2024 5:19 AM EDT [facility] Ketones, UA Negative Negative mg/dL 08/13/2024 5:19 AM EDT [facility] Bilirubin, UA Small(A) Negative 08/13/2024 5:19 AM EDT [facility] Blood, UA Negative Negative 08/13/2024 5:19 AM EDT [facility] Nitrite, UA Negative Negative 08/13/2024 5:19 AM EDT [facility] Urobilinogen, UA <2.0 0.2 - 1.9 mg/dL 08/13/2024 5:19 AM EDT [facility] Leukocyte Esterase, UA Negative Negative 08/13/2024 5:19 AM EDT [facility] Urine 08/13/2024 4:51 AM EDT 08/13/2024 5:03 AM EDT us Edwige Bernard MD URINE ORDERABLES Final Result [facility] [address] * CARISA Rhythm Strip - Scan (08/13/2024 12:26 AM EDT) us Scanning Uchhim SCAN DOCS - NO RESULTS Final Res ult * (ABNORMAL) CBC (08/13/2024 12:08 AM EDT) WBC 7.4 3.8 - 10.8 10E3/uL 08/13/2024 1:26 AM EDT [facility] RBC 3.10(L) 4.20 - 5.80 10E6/uL 08/13/2024 1:26 AM EDT [facility] Hemoglobin 10.9(L) 13.2 - 17.1 g/dL 08/13/2024 1:26 AM EDT [facility] Hematocrit 30.6(L) 38.5 - 50.0 % 08/13/2024 1:26 AM EDT [facility] MCV 98.8 80.0 - 100.0 fL 08/13/2024 1:26 AM EDT [facility] MCH 35.2(H) 27.0 - 33.0 pg 08/13/2024 1:26 AM EDT [facility] MCHC 35.6 32.0 - 36.0 g/dL 08/13/2024 1:26 AM EDT [facility] RDW 22.0(H) 11.0 - 15.0 % 08/13/2024 1:26 AM EDT [facility] Platelets 51(L) 140 - 400 10E3/uL 08/13/2024 1:26 AM EDT [facility] Comment: Specimen checked for clots. None detected. _Platelet Morphology Normal _Platelets Appear Decreased Slide Reviewed for PLT Clumps. None Seen. MPV 10.2 7.5 - 11.5 fL 08/13/2024 1:26 AM EDT [facility] Whole Blood 08/13/2024 12:0 8 AM EDT 08/13/2024 12:25 AM EDT us Terra Philip DO LAB BLOOD ORDERABLES Final Re sult [facility] [address] * (ABNORMAL) Hepatic Function Panel (08/13/2024 12:08 AM EDT) Total Bilirubin 34.2(H) 0.0 - 1.5 mg/dL 08/13/2024 1:10 AM EDT [facility] Bilirubin, Direct 18.87(H) 0.00 - 0.40 mg/dL 08/13/2024 1:10 AM EDT [facility] AST 58(H) 13 - 39 U/L 08/13/2024 1:10 AM EDT [facility] ALT 32 7 - 52 U/L 08/13/2024 1:10 AM EDT [facility] Alkaline Phosphatase 77 36 - 125 U/L 08/13/2024 1:10 AM EDT [facility] Total Protein 4.6(L) 6.4 - 8.9 g/dL 08/13/2024 1:10 AM EDT [facility] Albumin 2.9(L) 3.5 - 5.7 g/dL 08/13/2024 1:10 AM EDT [facility] Bilirubin, Indirect 15.33(H) 0.00 - 1.10 mg/dL 08/13/2024 1:10 AM EDT [facility] Plasma 08/13/2024 12:0 8 AM EDT 08/13/2024 12:25 AM EDT [facility] Final Re sult Performing Organization Address [facility] Co de Phone Number [facility] [address] [facility]. [address] * (ABNORMAL) Protime-INR (08/13/2024 12:08 AM EDT) Protime 26.1(H) 12.1 - 15.1 seconds 08/13/2024 12:54 AM EDT [facility] INR 2.3(H) 0.9 - 1.1 08/13/2024 12:54 AM EDT [facility] Comment: RECOMMENDED THERAPEUTIC RANGES USING INR : Stable oral anticoagulant therapy: 2.0 - 3.0 Mechanical prosthetic heart valve: 2.5 - 3.5 Recurrent acute myocardial infarction: 2.5 - 3.5 Plasma 08/13/2024 12:0 8 AM EDT 08/13/2024 12:25 AM EDT Telesocialante DO LAB BLOOD ORDERABLES Final Re sult Performing Organization Address City/[facility]/ZIP Co de Phone Number [facility] [address] [facility] * Magnesium (08/13/2024 12:08 AM EDT) Magnesium 2.5 1.5 - 2.5 mg/dL 08/13/2024 1:10 AM EDT [facility] Plasma 08/13/2024 12:0 8 AM EDT 08/13/2024 12:25 AM EDT Terra [facility] LAB BLOOD ORDERABLES Final Re sult [facility] [address] [facility]. [address] * (ABNORMAL) Phosphorus (08/13/2024 12:08 AM EDT) Pathologist [facility] Phosphorus 5.3(H) 2.1 - 4.7 mg/dL 08/13/2024 1:10 AM EDT [facility] Plasma 08/13/2024 12:0 8 AM EDT 08/13/2024 12:25 AM EDT [facility] LAB BLOOD ORDERABLES Final Re sult Performing Organization Address City/[facility]/ZIP Co de Phone Number [facility] [address] * Lactic acid, venous (08/12/2024 11:32 PM EDT) Pathologist [facility] Lactate, Shakeel 1.6 0.5 - 2.2 mmol/L 08/12/2024 11:42 PM EDT [facility] Whole Blood VENOUS STRUCTURE / Unknown 08/12/2024 11:32 PM EDT 08/12/2024 11:37 PM EDT [facility] LAB BLOOD ORDERABLES Final Re sult [facility] [address] [place] [facility]. [address] * (ABNORMAL) Venous Blood Gas, Line/Syringe, STAT (08/12/2024 11:32 PM EDT) Pathologist [facility] PH-Line Draw 7.25(L) 7.32 - 7.42 08/12/2024 11:43 PM EDT [facility] PCO2-Line Draw 23(L) 41 - 51 mm Hg 08/12/2024 11:43 PM EDT [facility] PO2-Line Draw 102(H) 25 - 40 mm Hg 08/12/2024 11:43 PM EDT [facility] HCO3-Line Draw 13(L) 24 - 28 mmol/L 08/12/2024 11:43 PM EDT [facility] CO2 Content-Line Draw 11(L) 25 - 29 mmol/L 08/12/2024 11:43 PM EDT [facility] Base Excess-Line Draw -15.4(L) -2.0 - 3.0 mmol/L 08/12/2024 11:43 PM EDT [facility] %HBO2-Line Draw 95.8(H) 40.0 - 70.0 % 08/12/2024 11:43 PM EDT [facility] Carboxyhgb-Ludivina e Draw 2.0 % 08/12/2024 11:43 PM EDT [facility] Comment: CARBOXYHEMOGLOBIN (CO) REFERENCE RANGES: Non-Smokers: <2 % Smokers: <8 % TOXIC: >20 % Methemoglobin- Line Draw 0.9 0.0 - 1.5 % 08/12/2024 11:43 PM EDT [facility] Reduced Hemoglobin-Ludivina e Draw 1.3 0.0 - 5.0 % 08/12/2024 11:43 PM EDT [facility] Venous, Line Draw 08/12/2024 11:32 PM EDT 08/12/2024 11:37 PM EDT Marty Guidry MD LAB BLOOD ORDERABLES Final Result [facility] [address] * (ABNORMAL) Renal Function Panel w/EGFR (08/12/2024 10:52 PM EDT) Sodium 129(L) 133 - 146 mmol/L 08/12/2024 11:37 PM EDT [facility] Potassium 3.0(L) 3.5 - 5.3 mmol/L 08/12/2024 11:37 PM EDT [facility] Comment:Hemolysis Present: R esults may be influenced artificially. Recommend recollection as clinically indicated. Chloride 106 98 - 110 mmol/L 08/12/2024 11:37 PM EDT [facility] CO2 10(L) 21 - 33 mmol/L 08/12/2024 11:37 PM EDT [facility] Anion Gap 13 3 - 16 mmol/L 08/12/2024 11:37 PM EDT [facility] BUN 62(H) 7 - 25 mg/dL 08/12/2024 11:37 PM EDT [facility] Creatinine 4.52(H) 0.60 - 1.30 mg/dL 08/12/2024 11:37 PM EDT [facility] Glucose 127(H) 70 - 100 mg/dL 08/12/2024 11:37 PM EDT [facility] Calcium 7.8(L) 8.6 - 10.3 mg/dL 08/12/2024 11:37 PM EDT [facility] Phosphorus 5.1(H) 2.1 - 4.7 mg/dL 08/12/2024 11:37 PM EDT [facility] Albumin 2.2(L) 3.5 - 5.7 g/dL 08/12/2024 11:37 PM EDT [facility] Osmolality, Calculated 287 278 - 305 mOsm/kg 08/12/2024 11:37 PM EDT [facility] EGFR 16 08/12/2024 11:37 PM EDT [facility] Comment:As of 2021, the estimated GFR is calculated using the 2020 Chronic Kidney Disease Epidemiology Collaboration (CKD-EPI) equation. In line with the NKF-ASN Task Force Recommendations, this equation does not include a coefficient for race. A single eGFR value is calculated for each patient. The reference interval is >60 mL/min/1.73m2. eGFR values greater than 90 will be reported as >90mL/min/1.73m2. Reference: Luis Eduardo C, Talia M, Olivia DC, Emerita ND, Madelyn [place], Felicia [place], et al. A Unifying Approach for GFR Estimation: Recommendations of the NKF-ASN Task Force on Reassessing the inclusion of Race in Diagnosing Kidney Disease. Am J Kidney Dis. 2020. Plasma 08/12/2024 10:5 2 PM EDT 08/12/2024 11:09 PM EDT us Edwige Bernard MD LAB BLOOD ORDERABLES Final Res ult [facility] [address] * #2 Blood culture-Peripheral site 2 (08/12/2024 8:21 PM EDT) Culture Result No Growth After 5 Days [facility] Blood BLOOD SPECIMEN / Unknown 08/12/2024 8:21 PM EDT 08/12/2024 8:53 PM EDT Narrative [facility] - 08/17/2024 8:57 PM EDT Suboptimal volume of blood received. Interpret results with caution. Donny Mesa MD MICROBIOLOGY - GENERAL ORDERAB LES Final Result Performing Organization Address City/[facility]/ZIP Co de Phone Number [facility] [address] * #1 Blood culture-Peripheral site 1 (08/12/2024 7:57 PM EDT) Culture Result No Growth After 5 Days [facility] Blood BLOOD SPECIMEN / Unknown 08/12/2024 7:57 PM EDT 08/12/2024 8:53 PM EDT Narrative [facility] - 08/17/2024 8:56 PM EDT Suboptimal volume of blood received. Interpret results with caution. us Donny Mesa MD MICROBIOLOGY - GENERAL ORDERAB LES Final Result [facility] [address] * Bedside focused transthoracic echocardiogram (08/12/2024 7:08 PM EDT) Anatomical Region Laterality Modality Other 08/12/2024 7:08 PM EDT Narrative 08/15/2024 12:56 PM EDT Focused Echocardiogram Examination Exam category: Clinically indicated Indication(s) for Exam: Select one or more indications: hypotension Findings: Cardiac activity: present Pericardial effusion: none Left ventricular systolic function: normal Right ventricular size: normal Signs of RV strain: not evaluated Right systolic function (TAPSE): not evaluated IVC: collapsible >50% Interpretation: No sonographic evidence of significant cardiac dysfunction No sonographic evidence of significant pericardial effusion Signs of intravascular volume depletion Attending Attestation: I (the Attending) was present when the images were obtained by the extractor operator helper AND/OR I reviewed the images after they were obtained. I have reviewed the interpretation by the extractor operator helper, made any necessary edits and agree with the interpretation as currently documented. Electronically signed by Eleazar Pitt on Thursday, August 15, 2024 at 12:56 PM us Delmar Montalvo MD BEDSIDE US ORDERABLES Final Resu lt * (ABNORMAL) Ammonia (08/12/2024 6:51 PM EDT) Ammonia 167(H) 27 - 90 ug/dL 08/12/2024 7:31 PM EDT [facility] Plasma 08/12/2024 6:51 PM EDT 08/12/2024 7:00 PM EDT Donny Mesa MD LAB BLOOD ORDERABLES Final Res ult [facility] [address] [place] [address], [facility] * X-ray Portable Chest (08/12/2024 6:46 PM EDT) Anatomical Region Laterality Modality Chest Radiographic Graciela ging 08/12/2024 6:38 PM EDT Impressions 08/12/2024 7:11 PM EDT IMPRESSION: Mild left basilar atelectasis or scarring. Otherwise clear lungs. Report Verified by: Josr Francis DO at 08/12/2024 7:11 PM EDT Narrative 08/12/2024 7:11 PM EDT EXAM: XR PORTABLE CHEST INDICATION: Shortness of breath TECHNIQUE: 1 view of the chest. COMPARISON: None. FINDINGS: Medical Devices: None. Heart and Mediastinum: Cardiomediastinal silhouette is within normal limits. Lungs and Pleura: Mild streaky left basilar atelectasis or scarring. No focal consolidation, sizable pleural effusion, or evidence of pneumothorax. Bones and soft tissues: No acute abnormalities. Procedure Note Josr Francis DO - 08/12/2024 EXAM: XR PORTABLE CHEST INDICATION: Shortness of breath TECHNIQUE: 1 view of the chest. COMPARISON: None. FINDINGS: Medical Devices: None. Heart and Mediastinum: Cardiomediastinal silhouette is within normallimits. Lungs and Pleura: Mild streaky left basilar atelectasis or scarring. Nofocal consolidation, sizable pleural effusion, or evidence ofpneumothorax. Bones and soft tissues: No acute abnormalities. IMPRESSION: Mild left basilar atelectasis or scarring. Otherwise clear lungs. Report Verified by: Josr Francis DO at 08/12/2024 7:11 PM EDT Donny Mesa MD IMG DIAGNOSTIC IMAGING ORDERAB LES Final Result * Bedside focused FAST ultrasound (08/12/2024 6:34 PM EDT) 08/12/2024 6:34 PM EDT Narrative [facility] - 08/15/2024 1:00 PM EDT Focused FAST Ultrasound Examination Exam category: Clinically indicated Indication(s) for Exam: Select one or more indications: other indication(s) Exam for ascites Views Obtained: Select all areas imaged (veterans service representative images/clips obtained): abdomen Findings: Other Findings: Moderate volume ascites noted Interpretation: Positive FAST FAST interpretation details: intra-abdominal fluid seen Attending Attestation: I (the Attending) was present when the images were obtained by the extractor operator helper AND/OR I reviewed the images after they were obtained. I have reviewed the interpretation by the extractor operator helper, made any necessary edits and agree with the interpretation as currently documented. Electronically signed by Eleazar Pitt on Thursday, August 15, 2024 at 1:00 PM Donny Mesa MD BEDSIDE US ORDERABLES Final Re sult [facility] * (ABNORMAL) Protime-INR (08/12/2024 6:29 PM EDT) Protime 23.4(H) 12.1 - 15.1 seconds 08/12/2024 7:08 PM EDT [facility] INR 2.0(H) 0.9 - 1.1 08/12/2024 7:08 PM EDT [facility] Comment: RECOMMENDED THERAPEUTIC RANGES USING INR : Stable oral anticoagulant therapy: 2.0 - 3.0 Mechanical prosthetic heart valve: 2.5 - 3.5 Recurrent acute myocardial infarction: 2.5 - 3.5 Plasma 08/12/2024 6:29 PM EDT 08/12/2024 6:44 PM EDT Donny Mesa MD LAB BLOOD ORDERABLES Final Res ult [facility] [address] * (ABNORMAL) Venous blood gas, Line/Syringe (08/12/2024 6:29 PM EDT) PH-Line Draw 7.21(L) 7.32 - 7.42 08/12/2024 6:43 PM EDT [facility] PCO2-Line Draw 32(L) 41 - 51 mm Hg 08/12/2024 6:43 PM EDT [facility] PO2-Line Draw 25 25 - 40 mm Hg 08/12/2024 6:43 PM EDT [facility] HCO3-Line Draw 13(L) 24 - 28 mmol/L 08/12/2024 6:43 PM EDT [facility] CO2 Content-Line Draw 14(L) 25 - 29 mmol/L 08/12/2024 6:43 PM EDT [facility] Base Excess-Line Draw -13.9(L) -2.0 - 3.0 mmol/L 08/12/2024 6:43 PM EDT [facility] %HBO2-Line Draw 38.2(L) 40.0 - 70.0 % 08/12/2024 6:43 PM EDT [facility] Carboxyhgb-Ludivina e Draw 1.0 % 08/12/2024 6:43 PM EDT [facility] Comment: CARBOXYHEMOGLOBIN (CO) REFERENCE RANGES: Non-Smokers: <2 % Smokers: <8 % TOXIC: >20 % Methemoglobin- Line Draw 0.5 0.0 - 1.5 % 08/12/2024 6:43 PM EDT [facility] Reduced Hemoglobin-Ludivina e Draw 60.4(H) 0.0 - 5.0 % 08/12/2024 6:43 PM EDT [facility] Venous, Line Draw 08/12/2024 6:29 PM EDT 08/12/2024 6:40 PM EDT Donny Mesa MD LAB BLOOD ORDERABLES Final Res ult Performing Organization Address City/State/[facility] Co de Phone Number [facility] [address] [facility] * Lactic acid, venous, whole blood (08/12/2024 6:29 PM EDT) Lactate, Shakeel 1.4 0.5 - 2.2 mmol/L 08/12/2024 6:43 PM EDT [facility] Whole Blood 08/12/2024 6:29 PM EDT 08/12/2024 6:40 PM EDT Donny Mesa MD LAB BLOOD ORDERABLES Final Res ult [facility] [address] [facility] * (ABNORMAL) Hepatic Function Panel (08/12/2024 6:29 PM EDT) Total Bilirubin 37.9(H) 0.0 - 1.5 mg/dL 08/12/2024 7:26 PM EDT [facility] Bilirubin, Direct 23.2(H) 0.0 - 0.4 mg/dL 08/12/2024 7:26 PM EDT [facility] AST 63(H) 13 - 39 U/L 08/12/2024 7:20 PM EDT [facility] ALT 42 7 - 52 U/L 08/12/2024 7:20 PM EDT [facility] Alkaline Phosphatase 99 36 - 125 U/L 08/12/2024 7:20 PM EDT [facility] Total Protein 5.0(L) 6.4 - 8.9 g/dL 08/12/2024 7:20 PM EDT [facility] Albumin 3.1(L) 3.5 - 5.7 g/dL 08/12/2024 7:20 PM EDT [facility] Bilirubin, Indirect 14.7(H) 0.0 - 1.1 mg/dL 08/12/2024 7:26 PM EDT [facility] Plasma 08/12/2024 6:29 PM EDT 08/12/2024 6:40 PM EDT Donny Mesa MD LAB BLOOD ORDERABLES Final Res ult [facility] [address] * (ABNORMAL) Differential (08/12/2024 6:29 PM EDT) Differential Comments See Note 08/12/2024 7:19 PM EDT [facility] Comment: Target Cells PRES Macrocytes PRES Scan Result PERFORMED 08/12/2024 7:19 PM EDT [facility] Neutrophils Relative 84.5(H) 40.0 - 80.0 % 08/12/2024 7:19 PM EDT [facility] Lymphocytes Relative 8.1(L) 15.0 - 45.0 % 08/12/2024 7:19 PM EDT [facility] Monocytes Relative 5.2 0.0 - 12.0 % 08/12/2024 7:19 PM EDT [facility] Eosinophils Relative 1.9 0.0 - 8.0 % 08/12/2024 7:19 PM EDT [facility] Basophils Relative 0.3 0.0 - 1.0 % 08/12/2024 7:19 PM EDT [facility] nRBC 0 0 - 0 /100 WBC 08/12/2024 7:19 PM EDT [facility] Neutrophils Absolute 7,605 1,500 - 7,800 /uL 08/12/2024 7:19 PM EDT [facility] Lymphocytes Absolute 729(L) 850 - 3,900 /uL 08/12/2024 7:19 PM EDT [facility] Monocytes Absolute 468 200 - 950 /uL 08/12/2024 7:19 PM EDT [facility] Eosinophils Absolute 171 15 - 500 /uL 08/12/2024 7:19 PM EDT [facility] Basophils Absolute 27 0 - 200 /uL 08/12/2024 7:19 PM EDT [facility] Macrocytosis Present 08/12/2024 7:19 PM EDT [facility] Target Cells Present 08/12/2024 7:19 PM EDT [facility] Whole Blood 08/12/2024 6:29 PM EDT 08/12/2024 6:44 PM EDT us Donny Mesa MD LAB BLOOD ORDERABLES Final Res ult Performing Organization Address City/State/[facility] Co de Phone Number [facility] [address] * (ABNORMAL) CBC (08/12/2024 6:29 PM EDT) WBC 9.0 3.8 - 10.8 10E3/uL 08/12/2024 7:19 PM EDT [facility] RBC 3.62(L) 4.20 - 5.80 10E6/uL 08/12/2024 7:19 PM EDT [facility] Hemoglobin 12.5(L) 13.2 - 17.1 g/dL 08/12/2024 7:19 PM EDT [facility] Hematocrit 35.8(L) 38.5 - 50.0 % 08/12/2024 7:19 PM EDT [facility] MCV 98.7 80.0 - 100.0 fL 08/12/2024 7:19 PM EDT [facility] MCH 34.5(H) 27.0 - 33.0 pg 08/12/2024 7:19 PM EDT [facility] MCHC 34.9 32.0 - 36.0 g/dL 08/12/2024 7:19 PM EDT [facility] RDW 21.9(H) 11.0 - 15.0 % 08/12/2024 7:19 PM EDT [facility] Platelets 54(L) 140 - 400 10E3/uL 08/12/2024 7:19 PM EDT [facility] Comment: Specimen checked for clots. None detected. _Platelets Appear Decreased Platelet Estimate Decreased 08/12/2024 7:19 PM EDT [facility] MPV 9.5 7.5 - 11.5 fL 08/12/2024 7:19 PM EDT [facility] Whole Blood 08/12/2024 6:29 PM EDT 08/12/2024 6:44 PM EDT Narrative [facility] - 08/12/2024 7:19 PM EDT Peripheral blood smear was scanned per review criteria approved by the laboratory medical claims processor. us Donny Mesa MD LAB BLOOD ORDERABLES Final Res ult [facility] [id number] [place] [address], [facility] * (ABNORMAL) Basic metabolic panel (08/12/2024 6:29 PM EDT) Sodium 131(L) 133 - 146 mmol/L 08/12/2024 7:20 PM EDT [facility] Potassium 3.0(L) 3.5 - 5.3 mmol/L 08/12/2024 7:20 PM EDT [facility] Chloride 105 98 - 110 mmol/L 08/12/2024 7:20 PM EDT [facility] CO2 12(L) 21 - 33 mmol/L 08/12/2024 7:20 PM EDT [facility] Anion Gap 14 3 - 16 mmol/L 08/12/2024 7:26 PM EDT [facility] BUN 69(H) 7 - 25 mg/dL 08/12/2024 7:20 PM EDT [facility] Creatinine 4.84(H) 0.60 - 1.30 mg/dL 08/12/2024 7:20 PM EDT [facility] Glucose 140(H) 70 - 100 mg/dL 08/12/2024 7:20 PM EDT [facility] Calcium 9.0 8.6 - 10.3 mg/dL 08/12/2024 7:20 PM EDT [facility] Osmolality, Calculated 294 278 - 305 mOsm/kg 08/12/2024 7:20 PM EDT [facility] EGFR 15 08/12/2024 7:20 PM EDT [facility] Comment:As of 2021, the estimated GFR is calculated using the 2020 Chronic Kidney Disease Epidemiology Collaboration (CKD-EPI) equation. In line with the NKF-ASN Task Force Recommendations, this equation does not include a coefficient for race. A single eGFR value is calculated for each patient. The reference interval is >60 mL/min/1.73m2. eGFR values greater than 90 will be reported as >90mL/min/1.73m2. Reference: Luis Eduardo C, Talia M, Olivia DC, Emerita ND, Madelyn CA, Felicia ESPINOSA, et al. A Unifying Approach for GFR Estimation: Recommendations of the NKF-ASN Task Force on Reassessing the inclusion of Race in Diagnosing Kidney Disease. Am J Kidney Dis. 2020. Plasma 08/12/2024 6:29 PM EDT 08/12/2024 6:40 PM EDT us Donny Mesa MD LAB BLOOD ORDERABLES Final Res ult [facility] [id number] [place] [address], [facility] documented in this encounter Visit Diagnoses Diagnosis Hepatorenal syndrome (CMS-HCC)- Primary Hepatorenal syndrome Chronic liver failure without hepatic coma (CMS-HCC) Decompensated cirrhosis (CMS-HCC) NADIYA (acute kidney injury) (CMS-HCC) Hypotension, unspecified hypotension type Hepatorenal syndrome (CMS-HCC) Hepatorenal syndrome Shock (CMS-HCC) Unspecified shock Acute metabolic encephalopathy NADIYA (acute kidney injury) (CMS-HCC) Alcohol use disorder Alcoholic cirrhosis of liver without ascites (CMS-HCC) Metabolic encephalopathy Renal mass, left Unspecified disorder of kidney and ureter Cirrhosis of liver with ascites, unspecified hepatic cirrhosis type (CMS-HCC) documented in this encounter Administered Medications Inactive Administered Medications - up to 3 most recent administrations Medication Order MAR Action Action Date Dose Rate Site acetaminophen (TYLENOL) tablet 650 mg 650 mg, Oral, Every 4 hours PRN, mild pain (NRS 1-3); no comparable CPOT score, moderate pain (NRS 4-6) or if patient is non-communicative (CPOT 3-5), severe pain (NRS 7-10) or if patient is non-communicative (CPOT 6-8), NRS 1-10; use prior to opioids if opiods are also ordered, then reassess pain score within 90 minutes, Starting on Sun08/12/24 at 2216, Maximum dose of acetaminophen is 3000 mg (3 grams) from all sources in 24 hours. Given 08/13/2024 8:37 PM EDT 650 mg albumin human 25% 12.5 g, Intravenous, Every 30 min, First dose on Sun08/12/24 at 2222, For 8 doses, In Emergencies, may administer as rapidly as needed to improve clinical status., Select indication for use: Cirrhosis: Hepatorenal Syndrome, at 100 mL/hr New Bag 08/13/2024 2:04 AM EDT 12.5 g 100 mL/hr New Bag 08/13/2024 1:36 AM EDT 12.5 g 100 mL/hr New Bag 08/13/2024 1:04 AM EDT 12.5 g 100 mL/hr albumin human 25% 12.5 g, Intravenous, Every 30 min, First dose on Sun08/13/24 at 0900, For 8 doses, In Emergencies, may administer as rapidly as needed to improve clinical status., Select indication for use: Cirrhosis: Hepatorenal Syndrome, at 100 mL/hr New Bag 08/13/2024 6:17 PM EDT 12.5 g 100 mL/hr New Bag 08/13/2024 5:25 PM EDT 12.5 g 100 mL/hr New Bag 08/13/2024 3:45 PM EDT 12.5 g 100 mL/hr cefTRIAXone (ROCEPHIN) 2 g in sodium chloride 0.9% 20 mL IV Push 2 g, Intravenous, at 240 mL/hr, Once, On Tish 08/14/24 at 1230, For 1 dose, ADMINISTER IV PUSH. Infuse over 5 minutes. Draw up 20 mL Sodium Chloride 0.9% into empty syringe. Inject 20 mL into vial of Ceftriaxone. Shake well. Withdraw volume into syringe and administer immediately. Given 08/14/2024 1:24 PM EDT 2 g 240 mL/ hr cholestyramine-aspartame (PREVALITE) 4 gram packet PwPk 4 g 4 g, Oral, Daily, First dose on Sun08/18/24 at 1200, Therapeutic Interchange: cholestyramine (QUESTRAN) with sugar powder 4 gram = cholesytramine-aspartame (PREVALITE) 4 gram packet MAX 24 GRAMS PER DAY Given 08/19/2024 11:11 AM EDT 4 g Given 08/18/2024 1:30 PM EDT 4 g dextrose 10%-water (D10W) IV soln 12.5 g, Intravenous, Every 15 min PRN, Low blood sugar, for glucose < 70 and alert but can not be corrected, orally or via feeding tube, Starting on Sun08/12/24 at 2233, Recheck blood sugar in 15 minutes and repeat treatment if glucose still < 70. For Smart Pump: Set volume to be infused; 125 ml for 12.5 grams or 250 mL for 25 grams. dextrose 10%-water (D10W) IV soln 25 g, Intravenous, Every 15 min PRN, Low blood sugar, for glucose < 70 and not alert, Starting on Sun08/12/24 at 2233, Recheck glucose in 15 minutes and repeat treatment if glucose still < 70. For Smart Pump: Set volume to be infused; 125 ml for 12.5 grams or 250 mL for 25 grams. diclofenac sodium (VOLTAREN) 1 % gel 4 g 4 g, Topical, 4 times a day, First dose on Sun08/16/24 at 1700, Apply to affected area or joint and rub into skin gently, making sure to apply to entire affected area or joint. Apply to clean, dry, intact skin; do not apply to open wounds, eyes, or mucous membranes. Do not cover with occlusive dressings or apply heat or other topical medications to affected area. Showering/bathing should be avoided for 1 hour following application. Avoid wearing clothes or gloves for 10 minutes after application. Use provided dosing card to measure dose do not discard. See MAR links to access additional dosing cards., Apply to: Back, Other Site: painful joints Self-Administered 08/18/2024 5:12 PM EDT 4 g Given 08/18/2024 1:32 PM EDT 4 g Given 08/18/2024 9:20 AM EDT 4 g diphenhydrAMINE (BENADRYL) capsule 25 mg 25 mg, Oral, Once, On Sun08/18/24 at 1100, For 1 dose Given 08/18/2024 1:30 PM EDT 25 mg diphenhydrAMINE (BENADRYL) capsule 25 mg 25 mg, Oral, Once, On Sun08/19/24 at 0030, For 1 dose Given 08/19/2024 12:47 AM EDT 25 mg electrolyte-R (pH 7.4) (NORMOSOL-R pH 7.4) IV bolus 1,000 mL Intravenous, Administer over 1.001 Hours, at 999 mL/hr, Once, On Sun08/12/24 at 1951, For 1 dose Bolus from Bag 08/12/2024 7:55 PM EDT 1,000 mLs 999 mL/hr folic acid (FOLVITE) tablet 1 mg 1 mg, Oral, Daily, First dose on Sun08/13/24 at 0900 Given 08/19/2024 8:36 AM EDT 1 mg Given 08/18/2024 9:15 AM EDT 1 mg Given 08/17/2024 9:27 AM EDT 1 mg glucose chewable tablet 12 g 12 g, Oral, Every 15 min PRN, Low blood sugar, see admin instructions, Starting on Sun08/12/24 at 2233, TAKING PO: Patient has blood glucose between 50-70 mg/dL. o Give 15 grams of fast-acting carbohydrate (4 oz. fruit juice or 4 oz. non-diet soda or 3 glucose tablets). o Recheck blood sugar in 15 minutes and repeat if blood sugar is still between 50-70 mg/dL. Repeat as needed. Patient has blood glucose less than 50 mg/dL o Give 30 grams fast-acting carbohydrate (8 oz. fruit juice or 8 oz. of non-diet soda or 6 glucose tablets) on first attempt. o Recheck blood sugar in 15 minutes and repeat if blood sugar is still less than 50mg/dL. o If further attempts necessary, revert to 15 grams of carbohydrate. Repeat as needed. FEEDING TUBE: Patient has blood glucose between 50-70 mg/dL. o Give 15 grams of fast-acting carbohydrate (4 oz. fruit juice or 4 oz. non-diet soda). o Recheck blood sugar in 15 minutes and repeat if blood sugar is still between 50-70 mg/dL. Repeat as needed. Patient has blood glucose less than 50 mg/dL o Give 30 grams fast-acting carbohydrate (8 oz. fruit juice or 8 oz. of non-diet soda). o Recheck blood sugar in 15 minutes and repeat if blood sugar is still less than 50mg/dL. o If further attempts necessary, revert to 15 grams of carbohydrate. Repeat as needed. Labeled tablet strength may vary by wax pumper (may be expressed as grams of carbohydrates) per tablet. Each tablet = 4 grams of glucose. Do not give chewable tablets via feeding tube heparin (porcine) injection 5,000 Units 5,000 Units, Subcutaneous, Every 8 hours scheduled (3 times per day), First dose on Sun08/12/24 at 2156 Given 08/19/2024 6:22 AM EDT 5,000 Units Right Arm Given 08/19/2024 12:01 AM EDT 5,000 Units Left Arm Given 08/18/2024 1:30 PM EDT 5,000 Units A bdominal Tissue lactulose (CHRONULAC) 10 gram/15 mL solution 20 g 20 g, Oral, 3 times daily, First dose on Sun08/12/24 at 2236, Titrate to 2-3 large bowel movements per day Given 08/13/2024 8:37 PM EDT 20 g Given 08/13/2024 12:47 PM EDT 20 g Given 08/13/2024 9:17 AM EDT 20 g lactulose (CHRONULAC) 10 gram/15 mL solution 20 g 20 g, Per NG / OG tube, Every hour, First dose on Sun08/14/24 at 1200 Given 08/14/2024 10:24 PM EDT 20 g Given 08/14/2024 9:52 PM EDT 20 g Given 08/14/2024 9:15 PM EDT 20 g lactulose (CHRONULAC) 10 gram/15 mL solution 20 g 20 g, Per NG / OG tube, Every 4 hours, First dose (after last modification) on Sun08/15/24 at 0200, Hold if > 4 bowel movements today Given 08/16/2024 5:35 PM EDT 20 g Given 08/16/2024 1:48 PM EDT 20 g Given 08/16/2024 9:41 AM EDT 20 g lactulose (CHRONULAC) 10 gram/15 mL solution 20 g 20 g, Per NG / OG tube, 3 times daily, First dose (after last modification) on Sun08/17/24 at 2100, Hold if > 4 bowel movements today Given 08/18/2024 9:16 AM EDT 2 0 g lactulose (CHRONULAC) 10 gram/15 mL solution 20 g 20 g, Oral, 3 times daily, First dose (after last modification) on Sun08/18/24 at 2100, Hold if > 4 bowel movements today Given 08/19/2024 8:36 AM EDT 20 g levothyroxine (SYNTHROID) tablet 75 mcg 75 mcg, Oral, Every morning before breakfast, First dose on Sun08/13/24 at 0730, Please hold tube feeds 30 minutes before and 90 minutes after levothyroxine administration. Given 08/19/2024 6:22 AM EDT 75 mcg Given 08/17/2024 7:41 AM EDT 75 mcg Given 08/16/2024 6:38 AM EDT 75 mcg lidocaine (PF) 2% (20 mg/mL) Soln 200 mg 200 mg (10 mL), Intradermal, Once, On Sun08/14/24 at 1200, For 1 dose Given 08/14/2024 12:00 PM EDT 200 mg Othe r lidocaine (XYLOCAINE) 20 mg/mL (2 %) injection Starting on Sun08/14/24 at 1138, For 1 dose, Created by cabinet override Given 08/14/2024 12:00 PM EDT magnesium sulfate in sterile water 50 mL IVPB 2 g 2 g, Intravenous, Administer over 120 Minutes, Once, On Sun08/15/24 at 2330, For 1 dose New Bag 08/15/2024 11:50 PM EDT 2 g 25 mL/hr melatonin tablet Tab 3 mg 3 mg, Oral, Daily18, First dose on Sun08/12/24 at 2219, FOR Given 08/18/2024 11:53 PM EDT 3 mg Given 08/17/2024 5:55 PM EDT 3 mg Given 08/16/2024 5:35 PM EDT 3 mg midodrine (PROAMATINE) tablet 5 mg 5 mg, Oral, Every 8 hours, First dose (after last modification) on Sun08/13/24 at 0830 Given 08/13/2024 9:17 AM EDT 5 m g mupirocin (BACTROBAN) 2 % ointment 1 g Topical, 2 times daily, First dose on Sun08/12/24 at 2358, For 5 days, Apply 0.5 grams to each nare for a total of 1 gram. Then press nostrils together and massage gently for 60 seconds. 0.5 grams is about the size of a blueberry and should be placed onto a sterile cotton swab. Inserting the swab directly into the nostril will help ensure all sides of the nostril are coated in mupirocin. , Other Site: Apply 0.5 grams to each nare for a total of 1 gramIndications:Methicillin-Resistant S. Aureus Nasal Colonization Given 08/17/2024 9:26 AM EDT 1 g Given 08/16/2024 9:46 AM EDT 1 g Given 08/15/2024 8:59 PM EDT 1 g norepinephrine (LEVOPHED) 16 mg/250 mL (64 mcg/mL) infusion Intravenous, at 0-28.1 mL/hr, Continuous, Starting on Sun08/13/24 at 2330, FOR CENTRAL LINE USE ONLY, Initial starting rate: 2 mcg/min, Titrate by: 0.5 - 5 mcg/min, Titration interval: no more frequent than: 2 minutes, Clinical Goal: MAP greater than or equal to 65 mmHg, Contact Provider: If goals cannot be maintained at highest permissible dose Rate/Dose Change 08/14/2024 11:25 AM EDT 2 mcg/min 1.9 mL/hr Rate/Dose Change 08/14/2024 10:04 AM EDT 3 mcg/min 2.8 mL /hr Rate/Dose Change 08/14/2024 9:33 AM EDT 4 mcg/min 3.8 mL/ hr norepinephrine (LEVOPHED) 16 mg/250 mL (64 mcg/mL) infusion Intravenous, at 0-28.1 mL/hr, Continuous, Starting on Sun08/14/24 at 1100, FOR CENTRAL LINE USE ONLY, Initial starting rate: 2 mcg/min, Titrate by: 0.5 - 5 mcg/min, Titration interval: no more frequent than: 2 minutes, Clinical Goal: Other (enter clinical goal information), : MAP >70, Contact Provider: If goals cannot be maintained at highest permissible dose Associate Infusion Pump 08/14/2024 11:56 AM EDT 2 mcg/min 1.9 mL/hr octreotide (SANDOSTATIN) 500 mcg/mL 2 mcg/mL in dextrose 5% in water (D5W) 250 mL infusion Intravenous, at 25 mL/hr, Continuous, Starting on Sun08/13/24 at 0012 Rate/Dose Verify 08/15/2024 6:00 AM EDT 50 mcg/hr 25 mL/hr Rate/Dose Verify 08/15/2024 4:00 AM EDT 50 mcg/hr 25 mL/h r New Bag 08/15/2024 2:54 AM EDT 50 mcg/hr 25 mL/hr octreotide (SANDOSTATIN) injection 50 mcg 50 mcg, Intravenous, Once, On Sun08/12/24 at 2359, For 1 dose, BOLUS DOSE Given 08/13/2024 12:33 AM EDT 50 mcg pantoprazole (PROTONIX) EC tablet 40 mg 40 mg, Oral, Every morning before breakfast, First dose on Sun08/13/24 at 0730, Do Not Crush Given 08/13/2024 6:35 AM EDT 40 mg pantoprazole (PROTONIX) EC tablet 40 mg 40 mg, Oral, Daily6, First dose on Sun08/17/24 at 0600, Do Not Crush Given 08/19/2024 6:22 AM EDT 40 mg Given 08/17/2024 4:52 AM EDT 40 mg pantoprazole (PROTONIX) injection 40 mg 40 mg, Intravenous, Daily6, First dose on Sun08/14/24 at 0600, Dilute each 40 mg vial with 10 mL of Normal Saline Given 08/16/2024 6:38 AM EDT 40 mg Given 08/15/2024 5:22 AM EDT 40 mg Given 08/14/2024 4:39 AM EDT 40 mg PERIPHERAL norepinephrine (LEVOPHED) 16 mg/250 mL (64 mcg/mL) infusion Intravenous, at 0-14.1 mL/hr, Continuous, Starting on Sun08/13/24 at 0300, For 48 hours, Peripheral line may be used for 48 hours dedicated to norepinephrine (LEVOPHED) only. Norepinephrine dose should NOT exceed 15 mcg/min in the first 24 hours or 8 mcg/min in hours 25 - 48. CENTRAL LINE access MUST be obtained if infusion needs to be continued past 48 hours or exceeds dose limit. Assess and document two (2) working peripheral IV lines. Preferred placement by ultrasound and MUST have positive blood return. If more than 2 sticks are needed to obtain access, then CENTRAL LINE access MUST be obtained. Criteria for use of peripheral Norepinephrine Peripheral IV line established with the last 24 hours; must be 18 G or 20 G located in an upper extremity at least 2 inches above the wrist, up to but not including the antecubital vein. No peripheral IV allowed in hands, antecubital, lower extremity, or limb with upper limb restrictions. No midlines Assess PIV site every 2 hours. If concerns for line patency, phlebitis or extravasation, notify provider (), and refer to [facility] Extravasation Management Guidelines. , IV Line Type: PERIPHERAL, Initial starting rate: 2 mcg/min, Titrate by: 0.5 - 5 mcg/min, Titration interval: no more frequent than: 2 minutes, Clinical Goal: MAP greater than or equal to 65 mmHg, Contact Provider: If goals cannot be maintained at highest permissible dose Rate/Dose Change 08/13/2024 8:52 AM EDT 12 mcg/min 11.3 mL/hr Rate/Dose Change 08/13/2024 8:00 AM EDT 10 mcg/min 9.4 mL/ hr Rate/Dose Verify 08/13/2024 6:35 AM EDT 8 mcg/min 7.5 mL/ hr PERIPHERAL norepinephrine (LEVOPHED) 16 mg/250 mL (64 mcg/mL) infusion Intravenous, at 0-14.1 mL/hr, Continuous, Starting on Sun08/13/24 at 0930, For 41 hours, Peripheral line may be used for 48 hours dedicated to norepinephrine (LEVOPHED) only. Norepinephrine dose should NOT exceed 15 mcg/min in the first 24 hours or 8 mcg/min in hours 25 - 48. CENTRAL LINE access MUST be obtained if infusion needs to be continued past 48 hours or exceeds dose limit. Assess and document two (2) working peripheral IV lines. Preferred placement by ultrasound and MUST have positive blood return. If more than 2 sticks are needed to obtain access, then CENTRAL LINE access MUST be obtained. Criteria for use of peripheral Norepinephrine Peripheral IV line established with the last 24 hours; must be 18 G or 20 G located in an upper extremity at least 2 inches above the wrist, up to but not including the antecubital vein. No peripheral IV allowed in hands, antecubital, lower extremity, or limb with upper limb restrictions. No midlines Assess PIV site every 2 hours. If concerns for line patency, phlebitis or extravasation, notify provider (), and refer to [facility] Extravasation Management Guidelines. , IV Line Type: PERIPHERAL, Initial starting rate: 2 mcg/min, Titrate by: 0.5 - 5 mcg/min, Titration interval: no more frequent than: 2 minutes, Clinical Goal: Other (enter clinical goal information), : MAP 70, Contact Provider: If goals cannot be maintained at highest permissible dose Restarted 08/13/2024 10:14 AM EDT 12 mcg/min 11.3 mL/hr phytonadione (vitamin K1) (AQUA-MEPHYTON) 10 mg in sodium chloride 0.9 % 50 mL IVPB 10 mg, Intravenous, Administer over 60 Minutes, Daily, First dose on Sun08/13/24 at 1000, For 3 doses, PROTECT FROM LIGHT New Bag 08/15/2024 9:20 AM EDT 10 mg 50 mL/hr New Bag 08/14/2024 9:39 AM EDT 10 mg 50 mL/hr New Bag 08/13/2024 2:35 PM EDT 10 mg 50 mL/hr potassium chloride (KCl)/Sterile water 50 mL 20 mEq/50 mL IVPB 20 mEq 20 mEq, Intravenous, Administer over 60 Minutes, Every hour, First dose on Sun08/13/24 at 2200, For 3 doses, CENTRAL LINE: potassium chloride 60 mEq IVPB replacement (20 mEq/50 mL Q1h x 3) MAX INFUSION RATE VIA CENTRAL LINE IS 20 mEq/hr (50 mL/hr). Cardiac monitoring required when infused at 20 mEq/hr. Rate/Dose Verify 08/14/2024 12:00 AM EDT 50 m L/hr New Bag 08/13/2024 11:59 PM EDT 20 mEq 50 mL/hr Rate/Dose Verify 08/13/2024 11:06 PM EDT 50 mL/ hr potassium chloride (KCl)/Sterile water 50 mL 20 mEq/50 mL IVPB 20 mEq 20 mEq, Intravenous, Administer over 60 Minutes, Every hour, First dose on Tish 08/14/24 at 0330, For 3 doses, CENTRAL LINE: potassium chloride 60 mEq IVPB replacement (20 mEq/50 mL Q1h x 3) MAX INFUSION RATE VIA CENTRAL LINE IS 20 mEq/hr (50 mL/hr). Cardiac monitoring required when infused at 20 mEq/hr. Rate/Dose Verify 08/14/2024 7:00 AM EDT 50 mL /hr Restarted 08/14/2024 6:31 AM EDT 50 mL/hr New Bag 08/14/2024 5:40 AM EDT 20 mEq 50 mL/hr potassium chloride (KCl)/Sterile water 50 mL 20 mEq/50 mL IVPB 20 mEq 20 mEq, Intravenous, Administer over 60 Minutes, Every hour, First dose (after last reorder) on Tish 08/14/24 at 2330, For 3 doses, CENTRAL LINE: potassium chloride 60 mEq IVPB replacement (20 mEq/50 mL Q1h x 3) MAX INFUSION RATE VIA CENTRAL LINE IS 20 mEq/hr (50 mL/hr). Cardiac monitoring required when infused at 20 mEq/hr. Rate/Dose Verify 08/14/2024 11:20 PM EDT 50 mL/hr New Bag 08/14/2024 11:01 PM EDT 20 mEq 50 mL/hr potassium chloride (KCl)/Sterile water 50 mL 20 mEq/50 mL IVPB 20 mEq 20 mEq, Intravenous, Administer over 60 Minutes, Every hour, First dose on Sun08/15/24 at 0730, For 4 doses, CENTRAL LINE: potassium chloride 80 mEq IVPB replacement (20 mEq/50 mL Q1h x 4) MAX INFUSION RATE VIA CENTRAL LINE IS 20 mEq/hr (50 mL/hr). Cardiac monitoring required when infused at 20 mEq/hr. New Bag 08/15/2024 12:14 PM EDT 20 m Eq 50 mL/hr New Bag 08/15/2024 10:29 AM EDT 20 mEq 50 mL/hr New Bag 08/15/2024 8:17 AM EDT 20 mEq 50 mL/hr potassium chloride (KCl)/Sterile water 50 mL 20 mEq/50 mL IVPB 20 mEq 20 mEq, Intravenous, Administer over 60 Minutes, Every hour, First dose on Sun08/16/24 at 0000, For 4 doses, CENTRAL LINE: potassium chloride 80 mEq IVPB replacement (20 mEq/50 mL Q1h x 4) MAX INFUSION RATE VIA CENTRAL LINE IS 20 mEq/hr (50 mL/hr). Cardiac monitoring required when infused at 20 mEq/hr. New Bag 08/15/2024 11:24 PM EDT 20 m Eq 50 mL/hr potassium chloride (KLOR-CON M20) CR tablet 20 mEq 20 mEq, Oral, Once, On Sun08/13/24 at 0200, For 1 dose, FOR PATIENTS UNABLE TO SWALLOW LARGE TABLETS, but can take liquids orally: Place tablet(s) in room temperature or warm water (@ 2-4 ounces) and allow to disintegrate for ~ 30 seconds. Then stir well and administer immediately before particles settle. NOTE: not all particles will go into solution. DO NOT CRUSH or CHEW; TABLET(S) MAY BE SPLIT Given 08/13/2024 2:28 AM EDT 20 mEq potassium chloride (KLOR-CON M20) CR tablet 40 mEq 40 mEq, Oral, Once, On Sun08/13/24 at 0600, For 1 dose, FOR PATIENTS UNABLE TO SWALLOW LARGE TABLETS, but can take liquids orally: Place tablet(s) in room temperature or warm water (@ 2-4 ounces) and allow to disintegrate for ~ 30 seconds. Then stir well and administer immediately before particles settle. NOTE: not all particles will go into solution. DO NOT CRUSH or CHEW; TABLET(S) MAY BE SPLIT Given 08/13/2024 6:35 AM EDT 40 mEq potassium chloride (KLOR-CON M20) CR tablet 40 mEq 40 mEq, Oral, Once, On Sun08/13/24 at 1630, For 1 dose, FOR PATIENTS UNABLE TO SWALLOW LARGE TABLETS, but can take liquids orally: Place tablet(s) in room temperature or warm water (@ 2-4 ounces) and allow to disintegrate for ~ 30 seconds. Then stir well and administer immediately before particles settle. NOTE: not all particles will go into solution. DO NOT CRUSH or CHEW; TABLET(S) MAY BE SPLIT Given 08/13/2024 5:25 PM EDT 40 mEq potassium chloride (KLOR-CON M20) CR tablet 40 mEq 40 mEq, Oral, Once, On Sun08/18/24 at 0800, For 1 dose, FOR PATIENTS UNABLE TO SWALLOW LARGE TABLETS, but can take liquids orally: Place tablet(s) in room temperature or warm water (@ 2-4 ounces) and allow to disintegrate for ~ 30 seconds. Then stir well and administer immediately before particles settle. NOTE: not all particles will go into solution. DO NOT CRUSH or CHEW; TABLET(S) MAY BE SPLIT Given 08/18/2024 9:15 AM EDT 40 mEq potassium chloride (KLOR-CON M20) CR tablet 40 mEq 40 mEq, Oral, Once, On Sun08/19/24 at 1030, For 1 dose, FOR PATIENTS UNABLE TO SWALLOW LARGE TABLETS, but can take liquids orally: Place tablet(s) in room temperature or warm water (@ 2-4 ounces) and allow to disintegrate for ~ 30 seconds. Then stir well and administer immediately before particles settle. NOTE: not all particles will go into solution. DO NOT CRUSH or CHEW; TABLET(S) MAY BE SPLIT Given 08/19/2024 11:11 AM EDT 40 mEq potassium chloride (KLOR-CON) packet 40 mEq 40 mEq, Per NG / OG tube, 3 times daily, First dose on Sun08/17/24 at 0900, For 2 doses, Mix 1 packet with 4 oz (120 mL) of water or a beverage. For a 10 mEq dose withdraw 2 oz (60 mL). For a 20 mEq dose withdraw 4 oz (120 mL). Administer via NG/feeding tube. Given 08/17/2024 12:47 PM EDT 40 mEq Given 08/17/2024 9:26 AM EDT 40 mEq potassium phosphate 31 mmol in dextrose 5% in water (D5W) 500 mL infusion 31 mmol, Intravenous, Administer over 4.5 Hours, at 111.1 mL/hr, Once, On Sun08/15/24 at 0000, For 1 dose, HIGH ALERT Central Line Max Rate = 7.5 mMol/hr Rate/Dose Verify 08/15/2024 4:00 AM EDT 111 mL/h r Rate/Dose Verify 08/15/2024 1:00 AM EDT 111 mL/ hr New Bag 08/15/2024 12:31 AM EDT 31 mmol 111.1 mL/hr potassium phosphate 31 mmol in dextrose 5% in water (D5W) 500 mL infusion 31 mmol, Intravenous, Administer over 7 Hours, at 71.4 mL/hr, Once, On Sun08/16/24 at 0000, For 1 dose, HIGH ALERT Peripheral Line Max Rate = 5 mMol/hr New Bag 08/16/2024 1:00 AM EDT 31 mmol 71.4 mL/hr rifAXIMin (XIFAXAN) tablet 550 mg 550 mg, Oral, 2 times daily, First dose on Sun08/12/24 at 2237 Given 08/19/2024 8:36 AM EDT 550 mg Given 08/18/2024 11:53 PM EDT 550 mg Given 08/18/2024 9:15 AM EDT 550 mg sod phos di, mono-K phos mono (K-PHOS NEUTRAL) 250 mg tablet Tab 500 mg 500 mg, Per NG / OG tube, Every 4 hours, First dose (after last modification) on Sun08/14/24 at 1730, For 2 doses, Each 250 mg tablet of KPhos Neutral contains: Phosphorus = 8 mmol; Sodium = 13 mEq; Potassium = 1.1 mEq Given 08/14/2024 10:00 PM EDT 500 mg Given 08/14/2024 6:17 PM EDT 500 mg sodium bicarbonate 150 mEq in dextrose 5% in water (D5W) 1,000 mL IV infusion 100 mL/hr, Intravenous, Continuous, Starting on Sun08/14/24 at 0330 New Bag 08/15/2024 9:11 AM EDT 100 mL/hr 100 mL/hr Rate/Dose Verify 08/15/2024 6:00 AM EDT 100 mL/ hr Rate/Dose Verify 08/15/2024 5:58 AM EDT 100 mL/ hr sodium bicarbonate tablet 650 mg 650 mg, Oral, 3 times daily, First dose on Sun08/17/24 at 0900 Given 08/19/2024 8:37 AM EDT 650 mg Given 08/18/2024 11:53 PM EDT 650 mg Given 08/18/2024 1:30 PM EDT 650 mg thiamine HCl (VITAMIN B-1) tablet 100 mg 100 mg, Oral, Daily, First dose on Sun08/13/24 at 0900 Given 08/19/2024 8:37 AM EDT 100 mg Given 08/18/2024 9:14 AM EDT 100 mg Given 08/17/2024 9:28 AM EDT 100 mg traMADoL (ULTRAM) tablet 50 mg 50 mg, Oral, Once, On Sun08/12/24 at 1855, For 1 dose Given 08/12/2024 6:58 PM EDT 50 mg traMADoL (ULTRAM) tablet 50 mg 50 mg, Oral, Once, On Sun08/16/24 at 0500, For 1 dose Given 08/16/2024 4:56 AM EDT 50 mg traMADoL (ULTRAM) tablet 50 mg 50 mg, Oral, Every 6 hours PRN, severe pain (NRS 7-10) or if patient is non-communicative (CPOT 6-8), Starting on 08/16/24 at 1626 Given 08/19/2024 6:22 AM EDT 5 0 mg Given 08/19/2024 12:01 AM EDT 50 mg Given 08/18/2024 6:19 PM EDT 50 mg zinc sulfate (ZINCATE) capsule 220 mg 220 mg, Oral, Daily, First dose on Tish 08/14/24 at 1130, each capsule contains 50 mg elemental zinc Given 08/19/2024 8:37 AM EDT 220 mg Given 08/18/2024 9:15 AM EDT 220 mg Given 08/17/2024 9:27 AM EDT 220 mg documented in this encounter Active and Recently Administered Medications Times are shown in EDT. Scheduled Medication Order 08/17/2024 08/18/2024 08/19/2024 cholestyramine-aspartame (PREVALITE) 4 gram packet PwPk 4 g 4 g, Oral, Daily, First dose on Sun08/18/24 at 1200, Therapeutic Interchange: cholestyramine (QUESTRAN) with sugar powder 4 gram = cholesytramine-aspartame (PREVALITE) 4 gram packet MAX 24 GRAMS PER DAY 1330 (Given - Provider: Melissa Avina, ЮЛИЯ) 1111 (Given - Provider: Cady Dykes RN) diclofenac sodium (VOLTAREN) 1 % gel 4 g 4 g, Topical, 4 times a day, First dose on Sun08/16/24 at 1700, Apply to affected area or joint and rub into skin gently, making sure to apply to entire affected area or joint. Apply to clean, dry, intact skin; do not apply to open wounds, eyes, or mucous membranes. Do not cover with occlusive dressings or apply heat or other topical medications to affected area. Showering/bathing should be avoided for 1 hour following application. Avoid wearing clothes or gloves for 10 minutes after application. Use provided dosing card to measure dose do not discard. See MAR links to access additional dosing cards., Apply to: Back, Other Site: painful joints 0925 (Given - Provider: Cady Dykes RN)1145 (Not Given - Provider: Cady Dykes RN - Reason: Patient/family refused)1600 (Not Given - Provider: Cady Dykes RN - Reason: Patient/family refused)2112 (Not Given - Provider: Julieta Vaz RN - Reason: Patient/family refused) 0920 (Given - Provider: Melissa Avina RN)1332 (Given - Provider: Melissa Avina RN)1712 (Self-Administered - Provider: Melissa Avina RN) 0049 (Not Given - Provider: Sonya Apple RN - Reason: Patient/family refused)0838 (Not Given - Provider: Cady Dykes RN - Reason: Patient/family refused) diphenhydrAMINE (BENADRYL) capsule 25 mg (COMPLETED) 25 mg, Oral, Once, On Sun08/18/24 at 1100, For 1 dose 1330 (Given - Provider: Melissa Avina RN) diphenhydrAMINE (BENADRYL) capsule 25 mg (COMPLETED) 25 mg, Oral, Once, On Sun08/19/24 at 0030, For 1 dose 0047 (Given - Provider: Sonya Apple RN) folic acid (FOLVITE) tablet 1 mg 1 mg, Oral, Daily, First dose on Sun08/13/24 at 0900 0927 (Given - Provider: Cady Dykes RN) 0915 (Given - Provider: Melissa Avina RN) 0836 (Given - Provider: Cady Dykes RN) heparin (porcine) injection 5,000 Units 5,000 Units, Subcutaneous, Every 8 hours scheduled (3 times per day), First dose on Sun08/12/24 at 2156 0456 (Not Given - Provider: Julieta Vaz RN - Reason: Patient/family refused)1248 (Given - Provider: Cady Dykes RN)2111 (Not Given - Provider: Julieta Vaz RN - Reason: Patient/family refused) 0501 (Not Given - Provider: Julieta Vaz RN - Reason: Patient/family refused)1330 (Given - Provider: Melissa Avina RN) 0001 (Given - Provider: Sonya Apple RN)0622 (Given - Provider: Sonya Apple RN) lactulose (CHRONULAC) 10 gram/15 mL solution 20 g (CANCELED) 20 g, Per NG / OG tube, 3 times daily, First dose (after last modification) on Sun08/17/24 at 2100, Hold if > 4 bowel movements today 2111 (Not Given - Provider: Julieta Vaz RN - Reason: Patient/family refused) 0916 (Given - Provider: Melissa Avina RN)1331 (Canceled Entry - Provider: Melissa Avina RN) lactulose (CHRONULAC) 10 gram/15 mL solution 20 g 20 g, Oral, 3 times daily, First dose (after last modification) on Sun08/18/24 at 2100, Hold if > 4 bowel movements today 2354 (Not Given - Provider: Sonya Apple RN - Reason: Patient/family refused) 0836 (Given - Provider: Cady Dykes RN) levothyroxine (SYNTHROID) tablet 75 mcg 75 mcg, Oral, Every morning before breakfast, First dose on Sun08/13/24 at 0730, Please hold tube feeds 30 minutes before and 90 minutes after levothyroxine administration. 0741 (Given - Provider: Cady Dykes RN) 0531 (Not Given - Provider: Julieta Vaz RN - Reason: NPO) 0622 (Given - Provider: Sonya Apple RN) melatonin tablet Tab 3 mg 3 mg, Oral, Daily18, First dose on Sun08/12/24 at 2219, FOR 1754 (Given - Provider: Cady Dykes RN) 2353 (Given - Provider: Sonya Apple RN - Comment: pt sleeping) mupirocin (BACTROBAN) 2 % ointment 1 g () Topical, 2 times daily, First dose on Sun08/12/24 at 2358, For 5 days, Apply 0.5 grams to each nare for a total of 1 gram. Then press nostrils together and massage gently for 60 seconds. 0.5 grams is about the size of a blueberry and should be placed onto a sterile cotton swab. Inserting the swab directly into the nostril will help ensure all sides of the nostril are coated in mupirocin. , Other Site: Apply 0.5 grams to each nare for a total of 1 gram 0926 (Given - Provider: Cady Dykes RN) pantoprazole (PROTONIX) EC tablet 40 mg 40 mg, Oral, Daily6, First dose on Sun08/17/24 at 0600, Do Not Crush 0452 (Given - Provider: Julieta Vaz RN) 0531 (Not Given - Provider: Julieta Vaz RN - Reason: NPO) 0622 (Given - Provider: Sonya Apple RN) potassium chloride (KLOR-CON M20) CR tablet 40 mEq (COMPLETED) 40 mEq, Oral, Once, On Sun08/18/24 at 0800, For 1 dose, FOR PATIENTS UNABLE TO SWALLOW LARGE TABLETS, but can take liquids orally: Place tablet(s) in room temperature or warm water (@ 2-4 ounces) and allow to disintegrate for ~ 30 seconds. Then stir well and administer immediately before particles settle. NOTE: not all particles will go into solution. DO NOT CRUSH or CHEW; TABLET(S) MAY BE SPLIT 0915 (Given - Provider: Melissa Avina RN) potassium chloride (KLOR-CON M20) CR tablet 40 mEq (COMPLETED) 40 mEq, Oral, Once, On Sun08/19/24 at 1030, For 1 dose, FOR PATIENTS UNABLE TO SWALLOW LARGE TABLETS, but can take liquids orally: Place tablet(s) in room temperature or warm water (@ 2-4 ounces) and allow to disintegrate for ~ 30 seconds. Then stir well and administer immediately before particles settle. NOTE: not all particles will go into solution. DO NOT CRUSH or CHEW; TABLET(S) MAY BE SPLIT 1111 (Given - Provider: Cady Dykes RN) potassium chloride (KLOR-CON) packet 40 mEq (COMPLETED) 40 mEq, Per NG / OG tube, 3 times daily, First dose on Sun08/17/24 at 0900, For 2 doses, Mix 1 packet with 4 oz (120 mL) of water or a beverage. For a 10 mEq dose withdraw 2 oz (60 mL). For a 20 mEq dose withdraw 4 oz (120 mL). Administer via NG/feeding tube. 0926 (Given - Provider: Cayd Dykes RN)1247 (Given - Provider: Cady Dykes RN) rifAXIMin (XIFAXAN) tablet 550 mg 550 mg, Oral, 2 times daily, First dose on Sun08/12/24 at 2237 0927 (Given - Provider: Cady Dykes RN)2111 (Given - Provider: Julieta Vaz, ЮЛИЯ) 0915 (Given - Provider: Melissa Avina RN)2353 (Given - Provider: Sonya Apple RN - Comment: pt sleeping) 0836 (Given - Provider: Cady Dykes RN) sodium bicarbonate tablet 650 mg 650 mg, Oral, 3 times daily, First dose on Sun08/17/24 at 0900 0926 (Given - Provider: Cady Dykes RN)1248 (Given - Provider: aCdy Dykes RN)211 (Given - Provider: Julieta Vaz, ЮЛИЯ) 0914 (Given - Provider: Melissa Avina RN)1330 (Given - Provider: Melissa Avina RN)2353 (Given - Provider: Sonya Apple RN - Comment: pt sleeping) 0837 (Given - Provider: Cady Dykes RN) thiamine HCl (VITAMIN B-1) tablet 100 mg 100 mg, Oral, Daily, First dose on Sun08/13/24 at 0900 0928 (Given - Provider: Cady Dykes RN) 0914 (Given - Provider: Melissa Avina RN) 0837 (Given - Provider: Cady Dykes RN) zinc sulfate (ZINCATE) capsule 220 mg 220 mg, Oral, Daily, First dose on Sun08/14/24 at 1130, each capsule contains 50 mg elemental zinc 0927 (Given - Provider: Cady Dykes RN) 0915 (Given - Provider: Melissa Avina RN) 0837 (Given - Provider: Cady Dykes RN) PRN Medication Order 08/17/2024 08/18/2024 08/19/2024 acetaminophen (TYLENOL) tablet 650 mg 650 mg, Oral, Every 4 hours PRN, mild pain (NRS 1-3); no comparable CPOT score, moderate pain (NRS 4-6) or if patient is non-communicative (CPOT 3-5), severe pain (NRS 7-10) or if patient is non-communicative (CPOT 6-8), NRS 1-10; use prior to opioids if opiods are also ordered, then reassess pain score within 90 minutes, Starting on Sun08/12/24 at 2216, Maximum dose of acetaminophen is 3000 mg (3 grams) from all sources in 24 hours. dextrose 10%-water (D10W) IV soln(Linked Group 1) 12.5 g, Intravenous, Every 15 min PRN, Low blood sugar, for glucose < 70 and alert but can not be corrected, orally or via feeding tube, Starting on Sun08/12/24 at 2233, Recheck blood sugar in 15 minutes and repeat treatment if glucose still < 70. For Smart Pump: Set volume to be infused; 125 ml for 12.5 grams or 250 mL for 25 grams. dextrose 10%-water (D10W) IV soln(Linked Group 1) 25 g, Intravenous, Every 15 min PRN, Low blood sugar, for glucose < 70 and not alert, Starting on Sun08/12/24 at 2233, Recheck glucose in 15 minutes and repeat treatment if glucose still < 70. For Smart Pump: Set volume to be infused; 125 ml for 12.5 grams or 250 mL for 25 grams. glucose chewable tablet 12 g 12 g, Oral, Every 15 min PRN, Low blood sugar, see admin instructions, Starting on Sun08/12/24 at 2233, TAKING PO: Patient has blood glucose between 50-70 mg/dL. o Give 15 grams of fast-acting carbohydrate (4 oz. fruit juice or 4 oz. non-diet soda or 3 glucose tablets). o Recheck blood sugar in 15 minutes and repeat if blood sugar is still between 50-70 mg/dL. Repeat as needed. Patient has blood glucose less than 50 mg/dL o Give 30 grams fast-acting carbohydrate (8 oz. fruit juice or 8 oz. of non-diet soda or 6 glucose tablets) on first attempt. o Recheck blood sugar in 15 minutes and repeat if blood sugar is still less than 50mg/dL. o If further attempts necessary, revert to 15 grams of carbohydrate. Repeat as needed. FEEDING TUBE: Patient has blood glucose between 50-70 mg/dL. o Give 15 grams of fast-acting carbohydrate (4 oz. fruit juice or 4 oz. non-diet soda). o Recheck blood sugar in 15 minutes and repeat if blood sugar is still between 50-70 mg/dL. Repeat as needed. Patient has blood glucose less than 50 mg/dL o Give 30 grams fast-acting carbohydrate (8 oz. fruit juice or 8 oz. of non-diet soda). o Recheck blood sugar in 15 minutes and repeat if blood sugar is still less than 50mg/dL. o If further attempts necessary, revert to 15 grams of carbohydrate. Repeat as needed. Labeled tablet strength may vary by wax pumper (may be expressed as grams of carbohydrates) per tablet. Each tablet = 4 grams of glucose. Do not give chewable tablets via feeding tube traMADoL (ULTRAM) tablet 50 mg 50 mg, Oral, Every 6 hours PRN, severe pain (NRS 7-10) or if patient is non-communicative (CPOT 6-8), Starting on 08/16/24 at 1626 0942 (Given - Provider: Cady Dykes RN)1755 (Given - Provider: Cady Dykes RN) 0932 (Given - Provider: Melissa Avina RN)1819 (Given - Provider: Melissa Avina RN) 0001 (Given - Provider: Sonya Apple, ЮЛИЯ)0622 (Given - Provider: Sonya Apple, RN) Linked Groups Order Group 1: dextrose 10%-water (D10W) IV solnJump to med 12.5 g, Intravenous, Every 15 min PRN, Low blood sugar, for glucose < 70 and alert but can not be corrected, orally or via feeding tube, Starting on 08/12/24 at 2233, Recheck blood sugar in 15 minutes and repeat treatment if glucose still < 70. For Smart Pump: Set volume to be infused; 125 ml for 12.5 grams or 250 mL for 25 grams. Or dextrose 10%-water (D10W) IV solnJump to med 25 g, Intravenous, Every 15 min PRN, Low blood sugar, for glucose < 70 and not alert, Starting on Sun08/12/24 at 2233, Recheck glucose in 15 minutes and repeat treatment if glucose still < 70. For Smart Pump: Set volume to be infused; 125 ml for 12.5 grams or 250 mL for 25 grams. documented in this encounter Care Teams Compliance Director Relationship Specialty Start Date End Date Pcp, No No Address PCP - General 07/25/24 08/14/24 documented as of this encounter
--- OUTSIDE RECORDS SUMMARY | 2024-08-25 14:20 | XMS_ITS | Encounter Summary ---
Author Organization Healthcare Address [address] [place] [address] Care Team Providers Care Television Host Name Role Phone Kistler, Ljmelanie Nova APRN Unavailable [phone] Enedina Mcguire APRN Primary Care Provider + Reason for Visit * Reason Comments Follow-up Encounter Details Date Type Department Care Team ([facility] Contact Info) Description 08/25/2024 2:20 PM EDT Office Visit Professional [facility] Nephrology, Bone & Mineral Metabolism [address], [address] [place] [address] Yovanny Bob MD [address] [place] [address] NADIYA (acute kidney injury) (CMS/HCC) (Primary Dx) Social History Tobacco Use Types Packs/Day Years Used Date Smoking Tobacco: Former Cigarettes 0.3 10 Passive Smoke Exposure: Never Smokeless Tobacco: Never Tobacco Cessation:Counseling Given: Not Answered Comments:2-3 cigs a day Alcohol Use Standard Drinks/Week Comments Not Currently 0 (1 standard drink = 0.6 oz pure alcohol) History of ETOH abuse, Last September 2022 Humiliation, Afraid, Rape, a nd Kick questionnaire Answer Date Recorded Within the last year, have y ou been afraid of your partner or ex-partner? Patient unable to answer 07/14/2024 Within the last year, have y ou been humiliated or emotionally abused in other ways by your partner or ex-partner? Patient unable to answer 07/14/2024 Within the last year, have y ou been kicked, hit, slapped, or otherwise physically hurt by your partner or ex-partner? Patient unable to answer 07/14/2024 Within the last year, have y ou been raped or forced to have any kind of sexual activity by your partner or ex-partner? Patient unable to answer 07/14/2024 Social Connection and Isolation Panel Answer Date Recorded In a typical week, how many times do you talk on the phone with family, friends, or neighbors? Patient unable to answer 07/14/2024 How often do you get togethe r with friends or relatives? Patient unable to answer 07/14/2024 How often do you attend [facility] or sikh services? Patient unable to answer 07/14/2024 Do you belong to any clubs o r organizations such as lutheran groups, unions, fraternal or athletic groups, or school groups? Patient unable to answer 07/14/2024 How often do you attend meet ings of the clubs or organizations you belong to? Patient unable to answer 07/14/2024 Are you , , di vorced, , never , or living with a partner? Patient unable to answer 07/14/2024 AUDIT-C Answer Date Recorded Q1: How often do you have a drink containing alcohol? Patient unable to answer 07/14/2024 Q2: How many drinks containi ng alcohol do you have on a typical day when you are drinking? Patient unable to answer Q3: How often do you have si x or more drinks on one occasion? Patient unable to answer 07/14/2024 PHQ-2 Answer Date Recorded Patient Health Questionnaire-2 Score 0 12/27/2023 [facility] - Occupational Stress Questionnaire Answer Date Recorded Do you feel stress - tense, restless, nervous, or anxious, or unable to sleep at night because your mind is troubled all the time - these days? Patient unable to answer 07/14/2024 Exercise Vital Sign Answer Date Recorde d On average, how many days pe r week do you engage in moderate to strenuous exercise (like a brisk walk)? Patient unable to answer 07/14/2024 Minutes of Exercise per Session Not on file 07/14/2024 Hunger Vital Sign Answer Date Recorded Within the past 12 months, y ou worried that your food would run out before you got the money to buy more. Never true 07/15/19 25 Within the past 12 months, t he food you bought just didn't last and you didn't have money to get more. Never true 07/14/2024 PRAPARE - Transportation Answer Date Re corded In the past 12 months, has l ack of transportation kept you from medical appointments or from getting medications? No 07/2024 In the past 12 months, has l ack of transportation kept you from meetings, work, or from getting things needed for daily living? No 07/14/2024 Housing Stability Vital Sign Answer Bob e Recorded In the last 12 months, was t here a time when you were not able to pay the mortgage or rent on time? No 11/19/2023 In the last 12 months, how many places have you lived? 1 11/19/2023 In the last 12 months, was t here a time when you did not have a steady place to sleep or slept in a care home (including now)? No 11/19/2023 Housing Stability Vital Sign Answer Bob e Recorded In the last 12 months, was t here a time when you were not able to pay the mortgage or rent on time? No 07/14/2024 In the past 12 months, how m any times have you moved where you were living? 1 07/14/2024 At any time in the past 12 m [facility], were you homeless or living in a care home (including now)? No 07/14/2024 CAGE ASSESSMENT Answer Date Recorded Cage unable to access Not on file 07/19/2024 Maximum number of drinks you had on a given occasion in the last month? 2 drinks 07/19/2024 How many alcoholic Beverages do you typically drink in a week? 0 - 7 per week 07/19/2024 Have you ever felt you should CUT down on your d rinking? 1 07/19/2024 Have you been ANNOYED by peo ple criticizing your drinking? 0 07/19/2024 Have you felt GUILTY about your drinking? 1 07/19/2024 Have you had a drink first t deborah in the morning (EYE-REGULATORY AFFAIRS DIRECTOR) to steady your nerves or to get rid of a hangover? 0 07/19/2024 CAGE Questionnaire Score 2 025 Utilities Answer Date Recorded In the past 12 months has th e electric, gas, oil, or water company threatened to shut off services in your home? No 07/14/2024 PHQ-2A Answer Date Recorded Patient Health Questionnaire-2 Score 0 12/04/2022 Sex and Gender Information Value Date Recorded Sex Assigned at Male 07/08/2024 5:21 PM EST Legal Sex Male 8:30 PM EDT Gender Identity Not on file Sexual Orientation Not on file documented as of this encounter Last Filed Vital Signs Vital Sign Reading Time Taken Comments Blood Pressure 119/83 08/25/2024 1:59 PM EDT Pulse 102 08/25/2024 1:59 PM EDT Temperature 36.5 C (97.7 F) 08/25/2024 1:59 PM EDT Respiratory Rate - - Oxygen Saturation 99% 08/25/2024 1:59 PM EDT Inhaled Oxygen Concentration - - Weight 116 kg (256 lb 9.9 oz) 08/25/2024 1:59 PM EDT Height 193 cm (6' 4 ) 08/25/2024 1:59 PM EDT Body Mass Index 31.24 08/25/2024 1:59 PM EDT documented in this encounter Miscellaneous Notes * Progress Notes - Yovanny Curran MD - 08/25/2024 2:20 PM EDT HISTORY OF PRESENT ILLNESS Julien Anderson was seen in our clinic previously with/for Follow-up. As you know, patient is a 39 y.o. male who presents to the clinic today as follow up of his NADIYA. Most recently discharged on 08/19 from [facility]. Cr at time of discharge was 2.6. Cr most recently at [facility] was 2.8. Off topiramate due to acidosis. On bicarb repletion. C/O abdominal swelling - has been getting more distended. Accompanied by father. Medical History[1] Family History[2] Surgical History[3] Social History Tobacco Use Smoking status: Former Current packs/day: 0.25 Average packs/day: 0.3 packs/day for 10.0 years (2.5 ttl pk-yrs) Types: Cigarettes Passive exposure: Never Smokeless tobacco: Never Tobacco comments: 2-3 cigs a day Substance Use Topics Alcohol use: Not Currently Comment: History of ETOH abuse, Last September 2022 Current Medications[4] Allergies[5] REVIEW OF SYSTEMS 14 point ROS reviewed and pertinent positive documented in HPI OBJECTIVE Vitals: 08/25/24 1359 BP: 119/83 Pulse: 102 Temp: 36.5 ??C (97.7 ??F) SpO2: 99% PHYSICAL EXAMINATION Constitutional: No acute distress. HEENT: normal. icteric Cardiovascular: Normal rate and regular rhythm; 2+ Edema. No abnormal pulsations Pulmonary: Normal effort of breathing; Abdominal: soft, mild-moderate distension. No tenderness; Musculoskeletal: Normal range of motion. Skin: No rashes or lesions in exposed areas. Neurologic: At baseline, No new focal deficits Psychiatric: Orientated to person, place, and time: Normal Mood and affect LAB RESULTS Renal Panel: Lab Results Component Value Date NA 135 (L) 08/05/2024 K 3.4 (L) 08/05/2024 CL 101 08/05/2024 CO2 16 (L) 07/23/2024 BUN 37 (H) 08/05/2024 CREATININE 2.24 (H) 08/05/2024 EGFR 36.8 (L) 08/05/2024 PHOS 2.3 (L) 08/05/2024 MBD: Lab Results Component Value Date CALCIUM 10.2 08/05/2024 PHOS 2.3 (L) 08/05/2024 MG 1.8 (L) 07/15/2024 Hypercalcemia Labs: VITAMIN D 25 Lab Results Component Value Date VITD25 7.8 (L) 07/14/2024 Nutritional: Lab Results Component Value Date VITD25 7.8 (L) 07/14/2024 Endocrine profile: Lab Results Component Value Date TSH 1.57 07/14/2024 FREET4 1.1 07/08/2024 Urine studies: Lab Results Component Value Date CREATUR 22 12/04/2022 CBC: Lab Results Component Value Date WBC 7.89 07/23/2024 RBC 4.07 (L) 07/23/2024 HGB 13.3 (L) 07/23/2024 HCT 37.7 (L) 07/23/2024 PLT 69 (L) 07/23/2024 MCV 93 07/23/2024 MCH 32.7 (H) 07/23/2024 MCHC 35.3 07/23/2024 RDW 23.7 (H) 07/23/2024 NRBC 0.0 07/23/2024 Iron studies: Lab Results Component Value Date FERRITIN 446 (H) 07/15/2024 Radiology: Pertinent available radiological studies reviewed. ASSESSMENT/PLAN Mr. Julien Anderson is a pleasant 39 y.o. year old male who presented to the clinic today for followup of NADIYA NADIYA, likely HRS given underlying decompensated liver disease, Cr 2.6-2.8 Lowest Cr was 1.2 on 07/13, Has had multiple NADIYA since then and hospitalized multiple times Decompensated EtOH cirrhosis, evaluation pending sobriety Acidosis, NAGMA on repletion Hypokalemia Anemia Hyperbilirubinemia - No diuretics as Cr currently tenuous - Recommend para per GI - Will consider increasing bicarbonate if acidosis persists Status of kidney disease is worse Plan of care: Continue current treatment regimen. Status of kidney disease will be reassessed 6 weeks, labs every 2 weeks . Monitoring for drug toxicity: NADIYA Counseling Documentation: The patient was counseled regarding COUNSELING TOPICS: diagnostic results, prognosis, risks and benefit of treatment options, risk factor reductions, diagnostic impressions, importance of compliance with treatment, and group home nature of condition. Education provided was verbal counseling. Additional time was spent in care coordination including medical record review. ENCOUNTER TIMING: I personally spent a total of 31 minutes on this encounter. This time includes face to face with patient, counseling and discussion, lab/result interpretation, coordination of follow-up care, document review. 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 comes off at night [2] Family History Problem Relation Name Age of Onset Anesthesia problems Neg Hx Malig Hyperthermia Neg Hx [3] Past Surgical History: Procedure Laterality Date ABDOMINAL SURGERY gi bleed with 16 coils. espophagele varacies banded CERVICAL FUSION 2000 PANCREATIC SURGERY 11/23/2023 PANCREATIC DUCT STINT SURG UPPER GASTROINTESTINAL ENDOSCOPY [4] Current Outpatient Medications Medication Sig Dispense Refill Baclofen 5 MG tablet Bempedoic Acid-Ezetimibe 180-10 MG tablet Take 1 tablet by mouth 1 (one) time each day. Constulose 10 GM/15ML oral solution lactulose (Enulose) 10 GM/15ML solution oral solution Take 30 mL by mouth 3 (three) times a day as needed. levothyroxine (Synthroid, Levoxyl) 75 MCG tablet Take 1 tablet (75 mcg) by mouth daily before breakfast. 30 tablet 0 pantoprazole (Protonix) 40 MG EC tablet Take 1 tablet (40 mg) by mouth daily. 30 tablet 0 potassium chloride CR (Klor-Con M20) 20 MEQ ER tablet Take 1 tablet by mouth 1 (one) time each day. Prevalite 4 GM/DOSE powder Take 1 packet by mouth 1 (one) time each day. sodium bicarbonate 650 MG tablet Take 2 tablets (1,300 mg) by mouth in the morning and 2 tablets (1,300 mg) in the evening and 2 tablets (1,300 mg) before bedtime. 180 tablet 0 thiamine (Vitamin B-1) 100 MG tablet Take 1 tablet by mouth 1 (one) time each day. thiamine (Vitamin B-1) 100 MG tablet Take 1 tablet by mouth 1 (one) time each day. zinc sulfate (Zincate) 220 (50 Zn) MG capsule Take 1 capsule by mouth 1 (one) time each day. baclofen (Lioresal) 10 MG tablet Take 1 tablet (10 mg) by mouth 3 (three) times a day. cetirizine (ZyrTEC) 10 MG tablet Take 1 tablet (10 mg) by mouth daily as needed for allergies. (Patient not taking: Reported on 08/25/2024) folic acid (Folvite) 1 MG tablet Take 1 tablet by mouth 1 (one) time each day. midodrine (Proamatine) 5 MG tablet Take 1 tablet (5 mg) by mouth 3 (three) times a day. 90 tablet 0 naloxone (Narcan) 4 mg/0.1 mL nasal spray 1. Give 1 spray in nostril for no/slow breathing or cannot wake after opioid use 2. Call 911 3. Repeat in other nostril if symptoms continue (Patient not takin. Give 1 spray in nostril for no/slow breathing or cannot wake after opioid use 2. Call 911 3.Repeat in other nostril if symptoms continue Reported on 08/25/2024) 1 each 0 octreotide (SandoSTATIN) 100 MCG/ML injection Inject 1 mL (100 mcg) under the skin in the morning and 1 mL (100 mcg) in the evening and 1 mL (100 mcg) before bedtime. 90 mL 0 sildenafil (Viagra) 25 MG tablet Take 1 tablet (25 mg) by mouth daily as needed for erectile dysfunction. testosterone cypionate (Depo-Testosterone) 200 MG/ML injection Inject 1 mL (200 mg) into the muscle1 (one) time per week. No current facility-administered medications for this visit. [5] Allergies Allergen Reactions Tape/Bandaid Adhesive Itching and Rash Tegaderm adhesive on Ivs, pt states its tolerable Wound Dressing Adhesive Itching and Rash Tegaderm adhesive on Ivs, pt states its tolerable Duloxetine Other - please document in the comment field and Unknown - Patient states they do not know rxn details Became Manic documented in this encounter Plan of Treatment Upcoming Encounters Date Type Department Care Team (Late st Contact Info) Description 12/01/2024 2:20 PM EDT Office Visit [facility] Nephrology, Bone & Mineral Metabolism [address] , [address] [place] [address] Yovanny Curran MD [address] [place] [address] 01/08/2025 3:20 PM EDT Office Visit [facility] [address] , [address] [place] [address] Vincent Braga MD [address] [place] [id number] Scheduled Orders Name Type Priority Associated Diagnoses Orde r Schedule Basic metabolic panel Lab Routine NADIYA (acute kidney injury) (CMS/HCC) EVERY 2 WEEKS for 6 Occurrences starting 08/25/2024 until 02/24/2026 documented as of this encounter Visit Diagnoses Diagnosis NADIYA (acute kidney injury) (CMS/HCC)- Primary documented in this encounter Additional Health Concerns Assessment Noted Time A fall risk assessment has been complete d for the patient 08/25/2024 2:07 PM EDT A Body Mass Index follow-up plan has been documented for the patient 08/29/2024 9:18 AM EDT documented as of this encounter Care Teams Television Host Relationship Specialty Start Date End Date Enedina Mcguire APRN [address] [place] [address] PCP - General 12/04/22 Lj Tapia APRN [address] [place] [address] Referring Physician Gastroenterology 07/18/22 documented as of this encounter
--- OUTSIDE RECORDS SUMMARY | 2024-09-02 14:40 | XMS_ITS | Encounter Summary ---
Author Organization [facility] Address Formerly named [facility] [place] [address] Care Team Providers Care Tack Puller Name Role Phone Unavailable Primary Care Provider Unavailabl e Source Comments This information has been disclosed [...] release of HIV test results or diagnoses. [id number] Reason for Referral * (Routine) - New Request Specialty Diagnoses / Procedures Referred By Contac t Referred To Contact Radiology Diagnoses Cirrhosis of liver with ascites, unspecified hepatic cirrhosis type (CMS-HCC) Procedures AMB Referral to Interventional Radiology (BODY IR) Gerri Peterson MD [facility] [place] [address] Phone: tel: fax: Referral ID Status Reason Start Date Expiration Date V isits Requested Visits Authorized [id number] New Request 09/02/2024 03/01/2025 11 11 Reason for Visit * Reason Comments Follow-up Bloating in PT stoma ch * Hospital Discharge Follow-Up (Routine) - New Request Specialty Diagnoses / Procedures Referred By Contac t Referred To Contact Hepatology Feliciano Freeman MD [address] [place] [address] Phone: tel: fax: Referral ID Status Reason Start Date Expiration Date V isits Requested Visits Authorized [id number] New Request 07/29/2024 01/25/2025 1 1 Encounter Details Date Type Department Care Team (Latest Contact Info) Description 09/02/2024 2:40 PM EDT Office Visit [facility] Gastroenterology at [facility] Office [address] [facility] [address] [place] [address] Gerri Peterson MD [address] [place] [address] Cirrhosis of liver with ascites, [...] as 4 glasses of wine a days [employer] Answer Date Recorded In the past 12 months has th [employer], gas, oil, or water [employer] threatened to shut off services in your home? No 09/05/2024 AUDIT-C Answer Date Recorded Q1: How often do you have a drink containing alcohol? Never 09/05/2024 Q2: How many drinks containi ng alcohol do you have on a typical day when you are drinking? Patient does not drink Q3: How often do you have si x or more drinks on one occasion? Never 09/05/2024 PHQ-2 Answer Date Recorded PHQ-2 Total Score 1 09/02/2024 Hunger Vital Sign Answer Date Recorded Within the past 12 months, y ou worried that your food would run out before you got the money to buy more. Never true 09/06/19 25 Within the past 12 months, t he food you bought just didn't last and you didn't have money to get more. Never true 09/05/2024 PRAPARE - Transportation Answer Date Re corded In the past 12 months, has l ack of transportation kept you from medical appointments or from getting medications? No 08/13 In the past 12 months, has l ack of transportation kept you from meetings, work, or from getting things needed for daily living? No 09/05/2024 Housing Stability Vital Sign Answer Bob e Recorded In the last 12 months, was t here a time when you were not able to pay the mortgage or rent on time? No 09/05/2024 In the past 12 months, how m any times have you moved where you were living? 0 09/05/2024 At any time in the past 12 m [facility], were you homeless or living in a intermediate (including now)? No 09/05/2024 Yearly Questionnaire Answer Date Record ed Do you need any assistance w ith obtaining housing, meals, medication, transportation or medical equipment? No 09/02 Assistance needed for: Not on file Yearly Questionnaire Answer Date Record ed Do you need any assistance w ith obtaining housing, meals, medication, transportation or medical equipment? No 09/02 Assistance needed for: Not on file Yearly Questionnaire Answer Date Record ed Do [...] Score Answer Date of Assessment Author 0 09/05/2024 12:47 AM EDT Rohini Torres RN * Question Answer Date of Assessment Author Q1: How often do you have a drink containing alcohol? Never 09/05/2024 12:47 AM EDT Minh Torres R N Q2: How many drinks containing alcohol do you have on a typical day when you are drinking? Patient does not drink 09/05/2024 12:47 AM EDT Minh Torres, RN Q3: How often do you have six or more drinks on one occasion? Never 09/05/2024 12:47 AM EDT Minh Torres R N documented as of this encounter Patient Instructions * Patient Instructions* Gerri Peterson MD - 09/02/2024 2:40 PM EDT Labs today Paracentesis as needed. Will print paper order for this Labs every month. Will print paper order for this Abdominal ultrasound: please call to schedule this Will schedule for EGD documented in this encounter Plan of Treatment Upcoming Encounters Date Type Department Care Team (Late st Contact Info) Description 12/05/2024 8:01 AM EDT Hospital Encounter [facility] ENDOSCOPY [address] [place] [phone] Chris Orosco MD [address] [place] [phone] 12/05/2024 8:01 AM EDT - 12/05/2024 8:31 AM EDT Surgery [facility] ENDOSCOPY [address] [place] [phone] Chris Orosco MD [address] [place] [phone] EGD Scheduled Orders Name Type Priority Associated Diagnoses Order Schedule Paracentesis Procedures Routine Cirrhosis of liver with ascites, unspecified hepatic cirrhosis type (CMS-HCC) 1 Occurrences starting 09/02/2024 until 09/02/2025 AMB Referral to Interventional Radiology (BODY IR) Interventional Radiology Routine Cirrhosis of liver with ascites, unspecified hepatic cirrhosis type (CMS-HCC) Expected: 09/02/2024, Expires: 09/02/2025 Body fluid cell count Lab Routine Cirrhosis of liver with ascites, unspecified hepatic cirrhosis type (CMS-HCC) every 2 weeks for 20 Occurrences starting 09/02/2024 until 09/02/2025 Body Fluid Culture plus Stain Microbiology Routine Cirrhosis of liver with ascites, unspecified hepatic cirrhosis type (CMS-HCC) every 2 weeks for 20 Occurrences starting 09/02/2024 until 09/02/2025 Comprehensive metabolic panel Lab Routine Cirrhosis of liver with ascites, unspecified hepatic cirrhosis type (CMS-HCC) every month for 20 Occurrences starting 09/02/2024 until 03/17/2025, 2 completed CBC Lab Routine Cirrhosis of liver with ascites, unspecified hepatic cirrhosis type (CMS-HCC) every month for 11 Occurrences starting 09/02/2024 until 03/17/2025, 1 completed Protime-INR Lab Routine Cirrhosis of liver with ascites, unspecified hepatic cirrhosis type (CMS-HCC) EVERY MONTH for 11 Occurrences starting 09/02/2024 until 03/17/2025, 1 completed US Duplex Fxa-Lll-Wrarsln Comp Imaging STAT Cirrhosis of liver with ascites, unspecified hepatic cirrhosis type (CMS-HCC) 1 Occurrences starting 09/02/2024 until 03/17/2025 US Abdomen Complete Imaging STAT Alcoholic cirrhosis of liver without ascites (CMS-HCC) Cirrhosis of liver with ascites, unspecified hepatic cirrhosis type (CMS-HCC) 1 Occurrences starting 09/02/2024 until 03/17/2025 Scheduled Procedures Name Priority Associated Diagnoses Date/Ti me EGD Cirrhosis of liver with ascites, unspecified hepatic cirrhosis type (CMS-HCC) 12/05/2024 8:01 AM EDT documented as of this encounter Results * (ABNORMAL) Protime-INR (09/25/2024 11:55 AM EDT) Protime 23.6(H) 12.1 - 15.1 seconds 09/25/2024 12:46 PM EDT [facility] INR 2.0(H) 0.9 - 1.1 09/25/2024 12:46 PM EDT [facility] Comment: RECOMMENDED THERAPEUTIC RANGES USING INR : Stable oral anticoagulant therapy: 2.0 - 3.0 Mechanical prosthetic heart valve: 2.5 - 3.5 Recurrent acute myocardial infarction: 2.5 - 3.5 Plasma 09/25/2024 11:5 5 AM EDT 09/25/2024 12:20 PM EDT Gerri Peterson MD LAB BLOOD ORDERABLES Final Resu lt [facility] [address] [place] [address], [facility] * (ABNORMAL) CBC (09/25/2024 11:55 AM EDT) WBC 8.2 3.8 - 10.8 10E3/uL 09/25/2024 1:43 PM EDT [facility] RBC 2.88(L) 4.20 - 5.80 10E6/uL 09/25/2024 1:43 PM EDT [facility] Hemoglobin 10.8(L) 13.2 - 17.1 g/dL 09/25/2024 1:43 PM EDT [facility] Hematocrit 29.8(L) 38.5 - 50.0 % 09/25/2024 1:43 PM EDT [facility] MCV 103.5(H) 80.0 - 100.0 fL 09/25/2024 1:43 PM EDT [facility] MCH 37.6(H) 27.0 - 33.0 pg 09/25/2024 1:43 PM EDT [facility] MCHC 36.3(H) 32.0 - 36.0 g/dL 09/25/2024 1:43 PM EDT [facility] RDW 20.1(H) 11.0 - 15.0 % 09/25/2024 1:43 PM EDT [facility] Platelets 62(L) 140 - 400 10E3/uL 09/25/2024 1:43 PM EDT [facility] Comment: _Platelets Appear Decreased Slide Reviewed for PLT Clumps. None Seen. Specimen checked for clots. None detected. MPV 8.3 7.5 - 11.5 fL 09/25/2024 1:43 PM EDT [facility] Whole Blood 09/25/2024 11:5 5 AM EDT 09/25/2024 12:20 PM EDT us Gerri Peterson MD LAB BLOOD ORDERABLES Final Resu lt [facility] [address] [place] [address], [facility] * (ABNORMAL) Comprehensive metabolic panel (09/25/2024 11:55 AM EDT) Sodium 133 133 - 146 mmol/L 09/25/2024 12:50 PM EDT [facility] Potassium 4.1 3.5 - 5.3 mmol/L 09/25/2024 12:50 PM EDT [facility] Chloride 103 98 - 110 mmol/L 09/25/2024 12:50 PM EDT [facility] CO2 18(L) 21 - 33 mmol/L 09/25/2024 12:50 PM EDT [facility] Anion Gap 12 3 - 16 mmol/L 09/25/2024 12:50 PM EDT [facility] BUN 42(H) 7 - 25 mg/dL 09/25/2024 12:50 PM EDT [facility] Creatinine 3.13(H) 0.60 - 1.30 mg/dL 09/25/2024 12:50 PM EDT [facility] Glucose 106(H) 70 - 100 mg/dL 09/25/2024 12:50 PM EDT [facility] Calcium 9.3 8.6 - 10.3 mg/dL 09/25/2024 12:50 PM EDT [facility] Total Bilirubin 20.2(H) 0.0 - 1.5 mg/dL 09/25/2024 1:02 PM EDT [facility] AST 57(H) 13 - 39 U/L 09/25/2024 1:02 PM EDT [facility] ALT 29 7 - 52 U/L 09/25/2024 1:02 PM EDT [facility] Alkaline Phosphatase 171(H) 36 - 125 U/L 09/25/2024 1:02 PM EDT [facility] Total Protein 5.6(L) 6.4 - 8.9 g/dL 09/25/2024 1:02 PM EDT [facility] Albumin 3.5 3.5 - 5.7 g/dL 09/25/2024 1:02 PM EDT [facility] Osmolality, Calculated 287 278 - 305 mOsm/kg 09/25/2024 12:50 PM EDT [facility] EGFR 25 09/25/2024 12:50 PM EDT [facility] Comment:As of 2021, the estimated [...] Disease. Am J Kidney Dis. 2020. Plasma 09/25/2024 11:5 5 AM EDT 09/25/2024 12:21 PM EDT us Gerri Peterson MD LAB BLOOD ORDERABLES Final Resu lt [facility] [address] [place] [id number] * (ABNORMAL) Comprehensive metabolic panel (09/02/2024 5:00 PM EDT) Sodium 136 133 - 146 mmol/L 09/02/2024 8:57 PM EDT [facility] Potassium 2.7(LL) 3.5 - 5.3 mmol/L 09/02/2024 8:57 PM EDT [facility] Chloride 101 98 - 110 mmol/L 09/02/2024 8:57 PM EDT [facility] CO2 21 21 - 33 mmol/L 09/02/2024 8:57 PM EDT [facility] Anion Gap 14 3 - 16 mmol/L 09/02/2024 8:57 PM EDT [facility] BUN 39(H) 7 - 25 mg/dL 09/02/2024 8:57 PM EDT [facility] Creatinine 2.93(H) 0.60 - 1.30 mg/dL 09/02/2024 8:57 PM EDT [facility] Glucose 137(H) 70 - 100 mg/dL 09/02/2024 8:57 PM EDT [facility] Calcium 8.5(L) 8.6 - 10.3 mg/dL 09/02/2024 8:57 PM EDT [facility] Total Bilirubin 35.4(H) 0.0 - 1.5 mg/dL 09/02/2024 8:57 PM EDT [facility] AST 68(H) 13 - 39 U/L 09/02/2024 8:57 PM EDT [facility] ALT 43 7 - 52 U/L 09/02/2024 8:57 PM EDT [facility] Alkaline Phosphatase 140(H) 36 - 125 U/L 09/02/2024 8:57 PM EDT [facility] Total Protein 5.3(L) 6.4 - 8.9 g/dL 09/02/2024 8:57 PM EDT [facility] Albumin 3.3(L) 3.5 - 5.7 g/dL 09/02/2024 8:57 PM EDT [facility] Osmolality, Calculated 294 278 - 305 mOsm/kg 09/02/2024 8:57 PM EDT [facility] EGFR 27 09/02/2024 8:57 PM T [facility] Comment:As of 2021, the estimated [...] Disease. Am J Kidney Dis. 2020. Plasma 09/02/2024 5:00 PM EDT 09/02/2024 7:34 PM EDT us Gerri Peterson MD LAB BLOOD ORDERABLES Final Resu lt [facility] [address] * (ABNORMAL) CBC (09/02/2024 5:00 PM EDT) WBC 10.4 3.8 - 10.8 10E3/uL 09/02/2024 7:42 PM EDT [facility] RBC 3.13(L) 4.20 - 5.80 10E6/uL 09/02/2024 7:42 PM EDT [facility] Hemoglobin 11.1(L) 13.2 - 17.1 g/dL 09/02/2024 7:42 PM EDT [facility] Hematocrit 30.7(L) 38.5 - 50.0 % 09/02/2024 7:42 PM EDT [facility] MCV 97.9 80.0 - 100.0 fL 09/02/2024 7:42 PM EDT [facility] MCH 35.3(H) 27.0 - 33.0 pg 09/02/2024 7:42 PM EDT [facility] MCHC 36.1(H) 32.0 - 36.0 g/dL 09/02/2024 7:42 PM EDT [facility] RDW 22.7(H) 11.0 - 15.0 % 09/02/2024 7:42 PM EDT [facility] Platelets 73(L) 140 - 400 10E3/uL 09/02/2024 7:42 PM EDT [facility] MPV 9.4 7.5 - 11.5 fL 09/02/2024 7:42 PM EDT [facility] Whole Blood 09/02/2024 5:00 PM EDT 09/02/2024 7:34 PM EDT us Gerri Peterson MD LAB BLOOD ORDERABLES Final Resu lt [facility] [address] [place] [address], [facility] documented in this encounter Visit Diagnoses Diagnosis Cirrhosis of liver with ascites, unspecified hepatic cirrhosis type (CMS-HCC)- Primary Alcoholic cirrhosis of liver without ascites (CMS-HCC) Cirrhosis of liver with ascites, unspecified hepatic cirrhosis type (CMS-HCC) documented in this encounter
--- OUTSIDE RECORDS SUMMARY | 2024-09-02 16:00 | XMS_ITS | Encounter Summary ---
Author Organization [facility] Address [address] [place] [address] Care Team Providers Care Life Science Technician Name Role Phone Unavailable Primary Care [...] release of HIV test results or diagnoses. [id number] Reason for Visit * Reason Comments Labs Only * Auth/Cert (Routine) Specialty Diagnoses / Procedures Referred By Shane hernadez Referred To Contact Emergency Medicine [facility] Emergency Department [address] [place] [phone] Phone: tel: fax: Referral ID Status Reason Start Date Expiration Date Visits Re quested Visits Authorized [id number] 1 1 Encounter Details Date Type Department Care Team (Late st Contact Info) Description 09/02/2024 4:00 PM EDT Specimen [facility] Outreach Lab 222 [facility] [address] [place] [address] Doron Botello MD [address] [place] [address] Alcoholic cirrhosis of liver without [...] the past 12 months has th e [employer], gas, oil, or water company threatened to [...] any time in the past 12 m [facility], were you homeless or living in a senior care (including now)? No 08/12/2024 Yearly Questionnaire Answer [...] Description 12/05/2024 8:01 AM EDT Hospital Encounter [facility] ENDOSCOPY [address] [place] [phone] Chris Orosco MD [address] [place] [phone] 12/05/2024 8:01 AM EDT - 12/05/2024 8:31 AM EDT Surgery [facility] ENDOSCOPY [address] [place] [phone] Chris Orosco MD [address] [place] [phone] EGD Scheduled Procedures Name Priority Associated Diagnoses [...] - 146 mmol/L 09/02/2024 8:57 PM EDT [facility] Potassium 2.7(LL) 3.5 - 5.3 mmol/L 09/02/2024 8:57 PM EDT [facility] Chloride 101 98 - 110 mmol/L 09/02/2024 8:57 PM EDT [facility] CO2 21 21 - 33 mmol/L 09/02/2024 8:57 PM EDT [facility] Anion Gap 14 3 - 16 mmol/L 09/02/2024 8:57 PM EDT [facility] BUN 39(H) 7 - 25 mg/dL 09/02/2024 8:57 PM EDT [facility] Creatinine 2.93(H) 0.60 - 1.30 mg/dL 09/02/2024 8:57 PM EDT [facility] Glucose 137(H) 70 - 100 mg/dL 09/02/2024 8:57 PM EDT [facility] Calcium 8.5(L) 8.6 - 10.3 mg/dL 09/02/2024 8:57 PM EDT [facility] Total Bilirubin 35.4(H) 0.0 - 1.5 mg/dL 09/02/2024 8:57 PM EDT [facility] AST 68(H) 13 - 39 U/L 09/02/2024 8:57 PM EDT [facility] ALT 43 7 - 52 U/L 09/02/2024 8:57 PM EDT [facility] Alkaline Phosphatase 140(H) 36 - 125 U/L 09/02/2024 8:57 PM EDT [facility] Total Protein 5.3(L) 6.4 - 8.9 g/dL 09/02/2024 8:57 PM EDT [facility] Albumin 3.3(L) 3.5 - 5.7 g/dL 09/02/2024 8:57 PM EDT [facility] Osmolality, Calculated 294 278 - 305 mOsm/kg 09/02/2024 8:57 PM EDT [facility] EGFR 27 09/02/2024 8:57 PM EDT [facility] Comment:As of 2021, the [...] MD LAB BLOOD ORDERABLES Final Resu lt [facility] [address] * (ABNORMAL) CBC (09/02/2024 5:00 PM EDT) WBC 10.4 3.8 - 10.8 10E3/uL 09/02/2024 7:42 PM EDT [facility] RBC 3.13(L) 4.20 - 5.80 10E6/uL 09/02/2024 7:42 PM EDT [facility] Hemoglobin 11.1(L) 13.2 - 17.1 g/dL 09/02/2024 7:42 PM EDT [facility] Hematocrit 30.7(L) 38.5 - 50.0 % 09/02/2024 7:42 PM EDT [facility] MCV 97.9 80.0 - 100.0 fL 09/02/2024 7:42 PM EDT [facility] MCH 35.3(H) 27.0 - 33.0 pg 09/02/2024 7:42 PM EDT [facility] MCHC 36.1(H) 32.0 - 36.0 g/dL 09/02/2024 7:42 PM EDT [facility] RDW 22.7(H) 11.0 - 15.0 % 09/02/2024 7:42 PM EDT [facility] Platelets 73(L) 140 - 400 10E3/uL 09/02/2024 7:42 PM EDT [facility] MPV 9.4 7.5 - 11.5 fL 09/02/2024 7:42 PM EDT [facility] Whole Blood 09/02/2024 5:00 PM EDT 09/02/2024 7:34 PM EDT us Gerri Peterson MD LAB BLOOD ORDERABLES Final Resu lt [facility] [address] * Phosphatidylethanol Confirmation, B (09/02/2024 5:00 PM EDT) PETH 16:0/18.1 (POPETH) <10 Cutoff: 10 ng/mL 09/05/2024 3:18 AM EDT [facility] Comment: Phosphatidylethanol (PEth) homologues result [...] developed and its performance characteristics determined by [facility] in a manner consistent with CLIA requirements. This test has not been cleared or approved by the U.S. Food and Drug Administration. Test Performed by: [facility] [place] [address] Conference Organizer: Kathy Ortiz Ph.D.; CLIA# [id number] Whole Blood 09/02/2024 5:00 PM EDT 09/05/2024 3:18 AM EDT Doron Botello MD LAB BLOOD ORDERABLES Final Result [facility] [address] * (ABNORMAL) Protime-INR (09/02/2024 5:00 PM EDT) Protime 22.2(H) 12.1 - 15.1 seconds 09/02/2024 7:54 PM EDT [facility] INR 1.9(H) 0.9 - 1.1 09/02/2024 7:54 PM EDT [facility] Comment: RECOMMENDED THERAPEUTIC RANGES USING INR : Stable oral anticoagulant therapy: 2.0 - 3.0 Mechanical prosthetic heart valve: 2.5 - 3.5 Recurrent acute myocardial infarction: 2.5 - 3.5 Plasma 09/02/2024 5:00 PM EDT 09/02/2024 6:59 PM EDT Doron Botello MD LAB BLOOD ORDERABLES Final Result [facility] [address] * (ABNORMAL) Hepatic Function Panel (09/02/2024 5:00 PM EDT) Total Bilirubin 35.4(H) 0.0 - 1.5 mg/dL 09/02/2024 8:57 PM EDT [facility] Bilirubin, Direct 20.97(H) 0.00 - 0.40 mg/dL 09/02/2024 8:57 PM EDT [facility] AST 68(H) 13 - 39 U/L 09/02/2024 8:57 PM EDT [facility] ALT 43 7 - 52 U/L 09/02/2024 8:57 PM EDT [facility] Alkaline Phosphatase 140(H) 36 - 125 U/L 09/02/2024 8:57 PM EDT [facility] Total Protein 5.3(L) 6.4 - 8.9 g/dL 09/02/2024 8:57 PM EDT [facility] Albumin 3.3(L) 3.5 - 5.7 g/dL 09/02/2024 8:57 PM EDT [facility] Bilirubin, Indirect 14.43(H) 0.00 - 1.10 mg/dL 09/02/2024 8:57 PM EDT [facility] Plasma 09/02/2024 5:00 PM EDT 09/02/2024 7:34 PM EDT Doron Botello MD LAB BLOOD ORDERABLES Final Result [facility] [address] documented in this encounter Visit Diagnoses Diagnosis Alcoholic cirrhosis of liver without ascites (CMS-HCC) Cirrhosis of liver with ascites, unspecified hepatic cirrhosis type (CMS-HCC) Cirrhosis of liver with ascites, unspecified hepatic cirrhosis type (CMS-HCC) documented in this encounter
--- OUTSIDE RECORDS SUMMARY | 2024-09-03 04:56 | XMS_ITS | Encounter Summary ---
Author Organization [facility] Address [facility] [place] [address] Care Team Providers Care Youth [employer] Director Name Role Phone Unavailable Primary Care Provider [...] release of HIV test results or diagnoses. [id number] Reason for Visit * Reason Comments Abdominal Pain * Auth/Cert (Routine) Specialty Diagnoses / Procedures Referred By Shane hernadez Referred To Contact Emergency Medicine [facility] Emergency Department [address] [place] [id number] Phone: tel: fax: Referral ID Status Reason Start Date Expiration Date Visits Re quested Visits Authorized [id number] 1 1 Encounter Details Date Type Department Care Team (Latest Contact Info) Description 09/03/2024 4:56 AM EDT - 09/09/2024 6:25 PM EDT Hospital Encounter [facility] [address] [place] [address] Ana Maria Ramey MD [address] [place] [id number] Jarrod Alas MD [address] [place] [address] Kiet Ramirez MD [address] [place] [address] Kathie Sanchez MD [address] [place] [address] Flaquita Mendez MD [address] [place] [address] Alcoholic cirrhosis of liver with ascites (CMS-HCC) (Primary Dx); Abdominal pain, unspecified abdominal location; NADIYA (acute kidney injury) ([facility]) [N17.9] Discharge Disposition: Home or Self Care WITHOUT Home Care Services Social History Tobacco Use Types Packs/Day Years Used Date Smoking Tobacco: Former Cigarettes Smokeless Tobacco: Current Alcohol Use Standard Drinks/Week Comments Yes 0 (1 standard drink = 0.6 oz pure alcohol) History of alcohol abuse, reports no use in 3 week- typically endorses use as 4 glasses of wine a days Utilities Answer Date Recorded In the past 12 months has [employer], gas, oil, or water [employer] threatened to shut off services in your [...] money to buy more. Never true 09/06/19 Within the past 12 months, t he [...] any time in the past 12 m [facility], were you homeless or living in a [...] Sign Reading Time Taken Comments Blood Pressure 126/69 09/09/2024 3:43 PM EDT Pulse 98 09/09/2024 3:43 PM EDT Temperature 36.6 C (97.9 F) 09/09/2024 3:43 PM EDT Respiratory Rate 16 09/09/2024 3:43 PM EDT Oxygen Saturation 100% 09/09/2024 3:43 PM EDT Inhaled Oxygen Concentration 100% 09/09/2024 3 :43 PM EDT Weight 119.1 kg (262 lb 9.6 oz) 09/05/2024 6:08 AM EDT Height 193 cm (6' 4 ) 09/05/2024 12:43 AM EDT Body Mass Index 31.96 09/05/2024 12:43 AM EDT documented in this encounter Functional Status * Audit-C Score Answer Date of Assessment Author 0 09/05/2024 12:47 AM EDT Tori Torres RN * Question Answer Date of Assessment Author Q1: How often do you have a drink containing alcohol? Never 09/05/2024 12:47 AM EDT Minh Torres R N Q2: How many drinks containing alcohol do you have on a typical day when you are drinking? Patient does not drink 09/05/2024 12:47 AM EDT Minh Torres RN Q3: How often do you have six or more drinks on one occasion? Never 09/05/2024 12:47 AM SANTOT Minh Torres R N documented as of this encounter Discharge Summaries * Flaquita Mendez MD - 09/09/2024 2:27 PM EDT [facility] Department of Internal Medicine Inpatient Discharge Summary Patient: Julien Anderson CSN: [id number] Date of Admission: 09/03/2024 Date of Discharge: 09/09/2024 Attending Physician: Flaquita Mendez* Past Medical History Past Medical History: Diagnosis Date Alcoholic cirrhosis of liver ([facility]) Alcoholic hepatitis Esophageal varices ([facility]) Hepatorenal syndrome ([facility]) Hypertension Other hyperlipidemia 07/26/2024 Renal cell carcinoma ([facility]) Thrombocytopenia ([facility]) Thyroid disease Discharge Diagnoses Active Hospital Problems Diagnosis Date Noted Alcoholic cirrhosis of liver without ascites ([facility]) [K70.30] 07/25/2024 C. difficile diarrhea [A04.72] 09/09/2024 C Diff Diarrhea [R19.7] 09/08/2024 BRBPR (bright red blood per rectum) [K62.5] 09/07/2024 Anemia [D64.9] 09/05/2024 Abdominal pain [R10.9] 09/03/2024 Hypokalemia [E87.6] 09/03/2024 CKD (chronic kidney disease) stage 4, GFR 15-29 ml/min ([facility]) [N18.4] 09/03/2024 Metabolic acidosis with normal anion gap and bicarbonate losses [E87.20] 09/03/2024 GERD (gastroesophageal reflux disease) [K21.9] 09/03/2024 Hypothyroidism [E03.9] 09/03/2024 Itching [L29.9] 09/03/2024 Renal mass, left [N28.89] 08/18/2024 Alcohol use disorder [F10.90] 07/26/2024 Other hyperlipidemia [E78.49] 07/26/2024 Hypertension [I10] Thrombocytopenia ([facility]) [D69.6] Resolved Hospital Problems Diagnosis Date Noted Date Resolved SBP (spontaneous bacterial peritonitis) ([facility]) [K65.2] 09/08/2024 09/08/2024 Metabolic encephalopathy [G93.41] 07/26/2024 09/08/2024 NADIYA (acute kidney injury) ([facility]) [N17.9] 07/25/2024 09/08/2024 Operations/Procedures Performed (include dates) Surgeries: None Lines/Drains/Airways: Patient Lines/Drains/Airways Status Active Line / PIV Line None Notable Imaging Studies: X-ray Portable Chest Final Result IMPRESSION: No significant interval change. Report Verified by: Essence Lopez MD at 09/03/2024 2:13 PM EDT US Duplex Lbo-Pxi-Axjtkys Comp Final Result IMPRESSION: ABDOMEN Cirrhosis and stigmata of portal hypertension including ascites. No focal hepatic lesion. 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 No focal hepatic lesion. 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 Approved by John Villegas DO on 09/03/2024 6:19 AM EDT I have personally reviewed the images and I agree with this report. Report Verified by: Ian Veronica MD at 09/03/2024 6:[address] Abdomen and Pelvis With IV contrast Final Result IMPRESSION: 1. Cirrhotic liver morphology with sequela of portal hypertension. Portal vein is patent. 2. Liver is heterogeneous in enhancement, which is nonspecific but may be seen in setting of hepatitis. 3. Moderate to large volume intra-abdominal ascites. 4. Cholelithiasis with mild gallbladder wall thickening, which may be due to chronic hepatic dysfunction although acute cholecystitis cannot be definitively excluded recommend clinical correlation. 5. Partially calcified left renal lesion measuring up to 3 cm which per chart review has been previously cryoablated and biopsied with unclear pathology, which may reflect treated RCC versus complex renal cyst. No prior available for direct comparison. Recommend continued attention on follow-up versus comparison with outside priors if available. 6. Right testicle is herniated into a small to moderately sized right inguinal hernia. Approved by Alejandro Guajardo DO on 09/03/2024 6:37 AM EDT I have personally reviewed the images and I agree with this report. Report Verified by: Ian Veronica MD at 09/03/2024 6:46 AM EDT Other Procedures: 1. Diagnostic paracentesis 09/03/24 2. Therapeutic paracentesis 09/04/24, and 09/09/24 Consulting Services (include reason) 1. Nephology for NADIYA 2/2 HRS 2. Hepatology for cirrhosis co-management 3. IR for therapeutic para Allergies Adhesive Duloxetine Discharge Medications Medication List TAKE these medications, which are NEW Quantity/Refills ciprofloxacin HCl 500 MG tablet Commonly known as: CIPRO Take 1 tablet (500 mg total) by mouth daily. Start taking on: September 10, 2024 Quantity: 30 tablet Refills: 0 ursodioL 300 mg capsule Commonly known as: ACTIGALL Take 1 capsule (300 mg total) by mouth 2 times a day. Quantity: 60 capsule Refills: 0 vancomycin 125 MG capsule Commonly known as: VANCOCIN Take 1 capsule (125 mg total) by mouth 4 times a day for 10 days. Quantity: 40 capsule Refills: 0 TAKE these medications, which you were ALREADY TAKING Quantity/Refills Cholestyramine Light 4 gram Powd bulk Generic drug: cholestyramine Mix one scoop with 4-6 ounces of water and drink by mouth daily. Quantity: 231 g Refills: 0 Constulose 10 gram/15 mL solution Generic drug: lactulose Take 30 mLs (20 g total) by mouth 3 times a day as needed (goal 2-3 bowel movements a day). Quantity: 2838 mL Refills: 0 folic acid 1 MG tablet Commonly known as: FOLVITE Take 1 tablet (1 mg total) by mouth daily. Refills: 0 levothyroxine 75 MCG tablet Commonly known as: SYNTHROID Take 1 tablet (75 mcg total) by mouth every morning before breakfast. Refills: 0 pantoprazole 40 MG tablet Commonly known as: PROTONIX Take 1 tablet (40 mg total) by mouth every morning before breakfast. Refills: 0 potassium chloride 20 MEQ tablet Commonly known as: KLOR-CON M20 Take 2 tablets (40 mEq total) by mouth daily. Quantity: 60 tablet Refills: 2 sodium bicarbonate 650 MG tablet Take 2 tablets (1,300 mg total) by mouth 3 times a day. Quantity: 90 tablet Refills: 0 thiamine HCl 100 MG tablet [...] a day. Quantity: 60 tablet Refills: 0 zinc sulfate 50 mg zinc (220 mg) capsule Commonly known as: ZINCATE Take 1 capsule (220 mg total) by mouth daily. Quantity: 60 capsule Refills: 0 Where to Get Your Medications These medications were sent to [facility] [address] [place] [id number] Hours: Sunday - Sunday: 8:00AM - 6:00PM ciprofloxacin HCl 500 MG tablet thiamine HCl 100 MG tablet ursodioL 300 mg capsule vancomycin 125 MG capsule Reason for Admission Julien Anderson is a 39 y.o. male with a history of decompensated EtOH cirrhosis (complicated by EV, HRS, ascites, HE), HTN, and CKD, who presented with acute abdominal pain. Hospital Course By Problem Acute Abdominal Pain: Patient initially presented with acute onset abdominal pain and distension aswell as increased frequency of bowel movements. RUQ US reassuring, LFTs stable. Work-up ultimately notable for SBP as below. Spontaneous Bacterial Peritonitis: Second paracentesis sample from 09/04 consistent with SBP. Treated with CTX x 5 days with transition to ciprofloxacin for long-term PPx Decompensated alcoholic cirrhosis: Received frequent paracenteses while admitted, most recently on 09/09 prior to discharge. Given 50g albumin replacement for renal protection. Will be set up for weekly paracentesis on discharge. Acute kidney injury on CKD: Baseline creatinine 2.7-3, elevated to 3.52 this admission. Improved with albumin. Briefly received midodrine and octreotide but not continued on these at discharge. Creatinine 2.47 at discharge. C. Diff Diarrhea: Patient with >8 bowel movements through most of admission despite holding lactulose. CDiff PCR positive, toxin negative. With diarrhea and ongoing ABX use, patient treated for CDiff with PO vancomycin x 10 days Chronic metabolic acidosis with bicarb loss: Bicarb chronically low, down to 13 during this admission. Continued home bicarb replacement. CDiff treated to manage diarrhea. Hypokalemia: Required significant K replacement throughout admission in the setting of ongoing GI losses. 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 Needs abdominal MRI outpatient for liver transplant eval, to be ordered by hepatology team. Condition on Discharge 1. Functional Status: Normal 2. Mental Status: Normal 3. Diet / Tube Feeding / TPN: Diet/Nutrition Orders Diet low sodium Sodium 2 gm (low) Frequency: Effective Now Number of Occurrences: Until Specified Order Questions: Na restriction: Sodium 2 gm (low) Suicide/Behavior Risk Modification? No As listed above 4. Respiratory / Lines & Tubes / Wounds: None required 5. Discharge Physical Exam: BP 126/69 (BP Location: Right upper arm, Patient Position: Sitting) Pulse 98 Temp 97.9 ??F (36.6 ??C) (Oral) Resp 16 Ht 6' 4 (1.93 m) Wt (!) 262 lb 9.6 oz (119.1 kg) SpO2 100% BMI 31.96 kg/m?? General: well-nourished, alert, no acute distress HEENT: sclera and conjunctiva + scleral icterus, good dentition CV: regular rate and rhythm, no rubs, gallops, +systolic murmur Pulm: lungs clear to auscultation bilaterally Abd: soft, non-tender, distended but non-tense Ext: non-cyanotic, no clubbing, pulses palpable and equal bilaterally Neuro: A&O x 3, CN 2-12 grossly intact, no asterixis Psych: judgement and insight intact, mood and affect appropriate Skin: No rashes or lesions noted Core Measure Documentation (As Applicable) Most Recent Wt: Weight: (!) 262 lb 9.6 oz (119.1 kg) Core Measure Documentation Was the Influenza Vaccine Screening Completed?: No, August-January Discharge The core measures checklist is complete for discharge?: Yes Disposition Home independent Follow-Up Appointments Future Appointments Date Time Provider Department Center 09/10/2024 9:30 AM IR MP5 IR [facility] 12/02/2024 2:00 PM GI/LIVER FELLOW 4 [facility] 12/05/2024 8:00 AM Chris Orosco MD [facility] >30 minutes spent on discharge Signed: Flaquita Mendez MD PhD 09/09/2024, 6:17 PM documented in this encounter Discharge Instructions * Discharge Instructions* Flaquita Mendez MD - 09/09/2024 2:16 PM EDT Julien Anderson, Here are your hospital discharge instructions: --> You were hospitalized for: an infection in your stomach called SBP which was causing your belly pain. We drained the fluid in your stomach and treated the infection with IV antibiotics. However, you will need to continue taking an oral antibiotic called ciprofloxacin to prevent this type of stomach infection from happening again. The liver team will arrange for you to have the fluid drained from your belly on a weekly basis. Your kidneys were also under a lot of stress. You were seen by the kidney team, and we treated you with medicine to help your kidneys be less stressed, and your kidney numbers improved. While you were here, you began having a lot of diarrhea even after we held the lactulose. The diarrhea is being caused by a GI illness called C diff, and we have prescribed an oral antibiotic for you to take to treat this infection called Vancomycin. --> New medications: 1) Vancomycin 2.5 mL (125 mg) four times a day for 10 days 2) Ciprofloxacin 500 mg daily (to prevent infection as above) 3) Ursodiol (actifall) 300mg twice daily (for itching) 4) Vitamin B-1 100 mg daily --> Other Instructions: 1) You will be called to schedule an MRI to further evaluate a cyst seen on your left kidney (the liver team will order this as a part of their evaluation for transplant) 2) You will follow up in the transplant clinic after treatment of alcohol dependence is complete 3) You will be scheduled for weekly paracentesis Thank you, your Medicine Team Future Appointments Date Time Provider Department Center 09/10/2024 9:30 AM IR MP5 [facility] Imaging 12/02/2024 2:00 PM GI/LIVER FELLOW 4 [facility] 12/05/2024 8:00 AM Chris Orosco MD [facility] Recent Lab Values for you and your doctors: No results for input(s): TROPONINI , CKMB , BNP in the last 72 hours. Recent Labs 09/06/24 1637 09/07/24 0342 09/07/24 1536 09/08/24 0405 09/08/24 1408 09/08/24 1550 09/09/24 0612 NA 137 137 139 137 136 136 135 K 3.2* 3.2* 3.4* 3.3* 3.3* 3.5 3.5 CL 109 111* 112* 112* 112* 110 110 CO2 17* 15* 18* 13* 16* 13* 15* BUN 37* 36* 34* 31* 30* 29* 30* CREATININE 2.66* 2.60* 2.40* 2.36* 2.22* 2.24* 2.47* GLUCOSE 108* 150* 125* 147* 135* 114* 129* CALCIUM 8.7 8.3* 8.5* 8.3* 8.1* 8.5* 8.4* MG -- 1.7 -- 1.5 -- -- 1.7 PHOS 2.2 1.9* 2.0* 2.2 1.9* 2.3 2.3 Recent Labs 09/06/24 1637 09/07/24 0342 09/08/24 0405 09/09/24 0612 WBC 5.1 4.0 6.5 8.3 HGB 8.3* 7.4* 8.0* 8.7* HCT 23.3* 20.7* 22.3* 23.6* PLT 45* 40* 43* 45* INR -- 2.3* 2.3* 2.2* PROTIME -- 26.1* 26.0* 24.9* Recent Labs 09/07/24 0342 09/08/24 0405 09/09/24 0612 AST 47* 48* 55* ALT ALKPHOS 104 114 152* BILITOT 18.9* 18.7* 20.2* BILIDIRECT 9.8* 9.06* 9.75* documented in this encounter Medications at Time [...] 60 capsule 08/19/2024 1:23 PM EDT 08/20/2024 ciprofloxacin HCl (CIPRO) 500 MG tablet Take 1 tablet (500 mg total) by mouth daily. 30 tablet 09/09/2024 3:56 PM EDT 09/10/2024 folic acid (FOLVITE) 1 MG tablet Take 1 tablet (1 mg total) by mouth daily. potassium chloride (KLOR-CON M20) 20 MEQ tabletIndications :Hypokalemia Take 2 tablets (40 mEq total) by mouth daily. 60 tablet 2 09/02/2024 thiamine HCl (VITAMIN B-1) 100 MG tablet Take 1 tablet (100 mg total) by mouth daily. 30 tablet 09/09/2024 ursodioL (ACTIGALL) 300 mg capsule Take 1 capsule (300 mg total) by mouth 2 times a day. 60 capsule 09/09/2024 3:56 PM EDT 09/09/2024 cholestyramine-as partame (PREVALITE) 4 gram Powd bulk Mix one scoop with 4-6 ounces of water and drink by mouth daily. 231 g 08/19/2024 1:23 PM EDT 08/19/2024 lactulose (CHRONULAC) 10 gram/15 mL solution Take 30 mLs (20 g total) by mouth 3 times a day as needed (goal 2-3 bowel movements a day). 2838 mL 08/19/2024 1:23 PM EDT 08/19/2024 traMADoL (ULTRAM) 50 mg tablet Take 1 tablet (50 mg total) by mouth every 12 hours as needed for Pain (Pain). vancomycin (VANCOCIN) 125 MG capsule Take 1 capsule (125 mg total) by mouth 4 times a day for 10 days. 40 capsule 09/09/2024 3:56 PM EDT 09/09/2024 documented as of this encounter Progress Notes * Elle Sierra RN - 09/09/2024 4:22 PM EDT AVS reviewed with patient all questions answered patient getting IV albumin and will discharge after infusion complete * Chelsy Piper PharmD - 09/09/2024 3:36 PM EDT Clinical Pharmacy Progress Note: Pharmacotherapy Stewardship Transitions of Care A prescription for oral vancomycin was sent to [facility]charge [facility]. The medication was covered by the patient's insurance. This medication has a patient copay of $0.00. There were no identified barriers to medication access. The team was notified; no further transitions of care needs identified at this time. Thank you, Chelsy Piper PharmD, [facility] Clinical [facility] M[employer] [facility]er - Internal Medicine Preferred Contact: [employer] 09/09/2024 3:37 PM * Azalea Hughes DO - 09/09/2024 8:26 AM EDT [facility] Internal Medicine - Progress Note Chief Concern / Reason for Follow-Up Alcoholic cirrhosis of liver without ascites (CMS-HCC) Interval History Sitting up on side of bed, father at bedside. Patient reports some improvement in his belly pain today. Reports his stomach does feel more full and rigid today. Reports upwards of 7-8 Bms again yesterday, but feels they are smaller and maybe more formed. Had asmall amount of blood in toilet bowl yesterday. Denies fevers, chills. Having good PO intake. Feelslike the swelling in his legs is better than yesterday. Physical Exam Temp: [97.5 ??F (36.4 ??C)-98.9 ??F (37.2 ??C)] 97.8 ??F (36.6 ??C) Heart Rate: [86-96] 91 Resp: [16-20] 16 BP: (118-125)/(56-66) 125/56 General: well-nourished, alert, no acute distress HEENT: sclera and conjunctiva + scleral icterus, good dentition CV: regular rate and rhythm, no rubs, gallops, or murmurs Pulm: lungs clear to auscultation bilaterally Abd: soft, non-tender, more distended Ext: non-cyanotic, no clubbing, pulses palpable and equal bilaterally Neuro: A&O x 3, CN 2-12 grossly intact, no asterixis Psych: judgement and insight intact, mood and affect appropriate Skin: No rashes or lesions noted Assessment & Plan Assessment & Plan Alcoholic cirrhosis of liver without ascites (CMS-HCC) Due to EtOH, h/o EtOH hepatitis 06/2024 s/p prednisolone. MELD as below. Hepatology following. - EV: EGD 07/29 w/ nonbleeding grade 1 and 2 varices, portal gastropathy w/ small spot of blood s/p APC - Ascites: para 08/27 for 4L, 09/03 1L, 09/04 4L; no diuretics due to h/o HRS and hypotension, 2g Na diet, plan for repeat para tomorrow with IR - SBP: 09/04 para consistent with SBP, s/p CTX x5d; will cont fdc ppx with Cipro 500mg daily - HE: Cont to hold lactulose today, cont home rifaximin/zinc, goal at least 3 BM daily - HCC: AFP wnl; RUQUS w/ doppler 09/03 w/ reversed flow in the portal veins with 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, patent hepatic arteries/veins, no focal hepatic lesions - HRS: first HRS at in 06/2024, last admission 08/12-08/29 improved w/ NE in MICU and albumin challenge, consulted renal, Cr improved with albumin challenge, stopped midodrine and octreotide 200 mcg (received 3 doses 09/03-09/04), goal MAP>70 will resume if needed - Transplant: not eligible yet as last EtOH use 06/2024, peth pending - INR rise, likely related to cirrhosis but will give IV vit K 10mg daily x3d MELD 3.0: 37 at 09/09/2024 6:12 AM Calculated from: Serum Creatinine: 2.47 mg/dL at 09/09/2024 6:12 AM Serum Sodium: 135 mmol/L at 09/09/2024 6:12 AM Total Bilirubin: 20.2 mg/dL at 09/09/2024 6:12 AM Serum Albumin: 3.7 g/dL (Using max of 3.5 g/dL) at 09/09/2024 6:12 AM INR(ratio): 2.2 at 09/09/2024 6:12 AM Age at listing (hypothetical): 39 years Sex: Male at 09/09/2024 6:12 AM Abdominal pain Hyperacute onset while asleep 1hr prior to presentation. Initially c/f SBP, however cell counts unremarkable. Possibly due to worsening ascites, slightly improve s/p para in the ED though also received pain meds. Possible biliary colic given cholelithiasis, though pain diffuse. Low c/f cholecystitis given unremarkable RUQUS and LFTs relatively stable, mesenteric ischemia given lactate wnl. Acute hepatitis panel neg. - Cont Tylenol PRN (max 2g/day) - Cont oxy 2.5/5mg PRN, hold if mental status worsens - Stop home tramadol -Plan for repeat para w IR tomorrow Diarrhea Having upwards of 8 Bms daily despite holding lactulose since 09/05 With associated hypokalemia requiring aggressive repletion and significant bicarb loss -Enteric pathogen panel neg -C dif pending Hypokalemia Acute on chronic. Likely due to continued GI losses. 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 K 3.5 today - Cont to monitor, replete prn CKD (chronic kidney disease) stage 4, GFR 15-29 ml/min ([facility]) As above for NADIYA Alcohol use disorder Last use 06/2024 (admitted for EtOH hepatitis). 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 Had cryoablation w/ IR 10/2022. 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 Needs outpatient MRI abd on discharge as part of transplant workup. GERD (gastroesophageal reflux disease) - Cont home PPI Hypothyroidism - Cont home levothyroxine Itching - Cont home cholestyramine - Cont ursodiol Thrombocytopenia (CMS-HCC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 Hypertension No meds. Other hyperlipidemia No meds Anemia Hgb 8.0 today, down from 11.9 earlier this admission. Did report some bright red blood in stool as below. Denies symptoms of anemia including SOB, weakness. - CTM with daily CBC - Monitor for signs/symptoms of bleeding BRBPR (bright red blood per rectum) Reports bright red blood with several liquid bowel movements starting 08/17. Minimal blood in toilet was observed. Repeat CBC yesterday pm stable. Pt reports history of hemorrhoid and intermittent bleeding. No pain reported DVT Prophylaxis: Holding due to thrombocytopenia and recent BRBPR Code Status: Full Code AZALEA HUGHES DO 09/09/2024 12:37 PM Cosigned by Flaquita Mendez MD at 09/09/2024 6:19 PM EDT Associated attestation - Flaquita Mendez MD - 09/09/2024 6:19 PM EDT Hospital Medicine Attending -Supervision Note Julien Anderson was seen today on rounds with the resident. Please refer to my discharge summary from today's date for official documentation. Flaquita Mendez MD PhD Attending Physician Department of Internal Medicine 6:18 PM 09/09/2024 * Kathie Sanchez MD - 09/08/2024 9:31 AM EDT [facility] Internal Medicine - Progress Note Chief Concern / Reason for Follow-Up Alcoholic cirrhosis of liver without ascites (CMS-HCC) Interval History Sitting up in chair, father at bedside. Pt endorses some worsening horseshoe shaped pain in BL lower quadrants and epigastrum. Does feel that his abd is filling back up with fluid and is more distended. Reports upwards of 8 BMs yesterday. No evidence of bleeding, denies fevers, chills. Having good PO intake. LE edema continues to worsen. Physical Exam Temp: [97.6 ??F (36.4 ??C)-98.3 ??F (36.8 ??C)] 97.7 ??F (36.5 ??C) Heart Rate: [89-104] 91 Resp: [18-20] 20 BP: (125-154)/(62-88) 128/88 General: well-nourished, alert, no acute distress HEENT: sclera and conjunctiva + scleral icterus, good dentition CV: regular rate and rhythm, no rubs, gallops, or murmurs Pulm: lungs clear to auscultation bilaterally Abd: soft, non-tender, non-distended, no organomegaly Ext: non-cyanotic, no clubbing, pulses palpable and equal bilaterally Neuro: A&O x 3, CN 2-12 grossly intact Psych: judgement and insight intact, mood and affect appropriate Skin: No rashes or lesions noted Assessment & Plan Assessment & Plan Alcoholic cirrhosis of liver without ascites (CMS-HCC) Due to EtOH, h/o EtOH hepatitis 06/2024 s/p prednisolone. MELD as below. Hepatology following. 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, patent hepatic arteries/veins, no focal hepatic lesions - HRS: first HRS at in 06/2024, last admission 08/12-08/29 improved w/ NE in MICU and albumin challenge, consulted renal, Cr improved with albumin challenge, stopped midodrine and octreotide 200 mcg (received 3 doses 09/03-09/04), goal MAP>70 will resume if needed - Transplant: not eligible yet as last EtOH use 06/2024, peth pending - INR rise, likely related to cirrhosis but will give IV vit K 10mg daily x3d MELD 3.0: 37 at 09/08/2024 4:05 AM Calculated from: Serum Creatinine: 2.36 mg/dL at 09/08/2024 4:05 AM Serum Sodium: 137 mmol/L at 09/08/2024 4:05 AM Total Bilirubin: 18.7 mg/dL at 09/08/2024 4:05 AM Serum Albumin: 3.4 g/dL at 09/08/2024 4:05 AM INR(ratio): 2.3 at 09/08/2024 4:05 AM Age at listing (hypothetical): 39 years Sex: Male at 09/08/2024 4:05 AM Abdominal pain Hyperacute onset while asleep 1hr prior to presentation. Initially c/f SBP, however cell counts unremarkable. Possibly due to worsening ascites, slightly improve s/p para in the ED though also received pain meds. Possible biliary colic given cholelithiasis, though pain diffuse. Low c/f cholecystitis given unremarkable RUQUS and LFTs relatively stable, mesenteric ischemia given lactate wnl. Acute hepatitis panel neg. - Cont Tylenol PRN (max 2g/day) - Cont oxy 2.5/5mg PRN, hold if mental status worsens - Stop home tramadol - Re-consulted IR today for repeat therapeutic para Diarrhea Having upwards of 8 Bms daily despite holding lactulose since 09/05 With associated hypokalemia requiring aggressive repletion and significant bicarb loss Will send C diff and enteric pathogen panel Hypokalemia Acute on chronic. Likely due to continued GI losses. 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 K 3.3 today - Replete K - Recheck pm RFP NADIYA (acute kidney injury) (CMS-HCC) (Resolved: 09/08/2024) Admit Cr 3.01 (from 2.91 on 09/02, recent BL 2.7-3.0), peak Cr 3.52, now improving. UA appears concentrated, no c/f obstruction on CT A/P. Treated as HRS initially given severity of CKD and cirrhosis,de-escalating tx as above. Renal consulted. - Cont home sodium bicarb 1300mg TID, consider additional bicarb pending pm renal (though will do so with caution given Na restriction) - Albumin challenge and octreotide/midodrine as above CKD (chronic kidney disease) stage 4, GFR 15-29 ml/min ([facility]) As above for NADIYA Alcohol use disorder Last use 06/2024 (admitted for EtOH hepatitis). 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 Had cryoablation w/ IR 10/2022. 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 Needs outpatient MRI abd on discharge as part of transplant workup. GERD (gastroesophageal reflux disease) - Cont home PPI Hypothyroidism - Cont home levothyroxine Itching - Cont home cholestyramine - Cont ursodiol Thrombocytopenia ([facility]-HCC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 Hypertension No meds. Other hyperlipidemia No meds Anemia Hgb 8.0 today, down from 11.9 earlier this admission. Did report some bright red blood in stool as below. Denies symptoms of anemia including SOB, weakness. - CTM with daily CBC - Monitor for signs/symptoms of bleeding BRBPR (bright red blood per rectum) Reports bright red blood with several liquid bowel movements starting 08/17. Minimal blood in toilet was observed. Repeat CBC yesterday pm stable. Pt reports history of hemorrhoid and intermittent bleeding. No pain reported SBP (spontaneous bacterial peritonitis) ([facility]) (Resolved: 09/08/2024) Para with fluid studies on adm suggestive of SBP Unfortunately, cx with no growth S/p 5 days ceftriaxone Will start ppx cipro 500 mg daily DVT Prophylaxis: Holding due to thrombocytopenia and recent BRBPR Code Status: Full Code Medical Readiness for Discharge: 2-4 Days Medical Decision Making: Acute or chronic illness that may pose threat to life or function Discussed with physician/SAWYER from another specialty or practice, other licensed professional (PT/OT/SHOULDER BONER/RT), or a non-medical community professional: Hepatology Labs reviewed (1 pt each): BMP, LFT, CBC, INR Review of notes from a different specialty or different practice: hepatology KATHIE SANCHEZ MD 09/08/2024 9:31 AM * Leatha Ceja - 09/08/2024 7:40 AM EDT HEPATOLOGY CONSULT NOTE Consulted by: Kathie Sanchez MD Consult Question: Cirrhosis co-management History of Present Illness: Julien Andersno is a 39 y.o. male w/ PMHx EtOH cirrhosis d/b HE, jaundice, ascites, small non-bleedingEV, recent alcohol-associated hepatitis, RCC s/p treatment and c/f congenital renal disorder, HTN, HLD, HRS-CKD. He has had multiple admissions since June for decompensations, ACLF. In terms of cirrhosis history, long standing dx 2/ to alcohol (see below): Patient was recently admitted 07/08/24-07/23/24 at with alcohol-associated hepatitis and ACLF in the setting of [...] ineligible d/t alcohol use. Then re-admitted to [facility] 07/25-07/29 after worsening outpatient labs (NADIYA). also noted ongoing/worsening jaundice. Repeat US without ascites. His last drink was prior to admission at . During prior admission, renal function improved with volume expansion, held octreotide and midodrine. [facility] Admission -08/19/24 with generalized weakness, worsening labs in outpatient setting, NADIYA on CKD, Tbili>60, hepatic encephalopathy. Required admission to MICU for pressor support. Renal function improved with albumin and pressors. This morning, he reports that his malaise has improved since admission. Diarrhea improving over theweeke, Bms now semi-formed. Did have small amounts of bright red blood in toilet over weekend. Ongoing leaking from left para site. Still with itching including palms/soles. MELD 3.0: 37 at 09/08/2024 4:05 AM Calculated from: Serum Creatinine: 2.36 mg/dL at 09/08/2024 4:05 AM Serum Sodium: 137 mmol/L at 09/08/2024 4:05 AM Total Bilirubin: 18.7 mg/dL at 09/08/2024 4:05 AM Serum Albumin: 3.4 g/dL at 09/08/2024 4:05 AM INR(ratio): 2.3 at 09/08/2024 4:05 AM Age at listing (hypothetical): 39 years Sex: Male at 09/08/2024 4:05 AM Review of Systems All systems reviewed and negative except as listed above in HPI. Past Medical History: Diagnosis Date Alcoholic cirrhosis of liver (CMS-HCC) Alcoholic hepatitis Esophageal varices (CMS-HCC) Hepatorenal syndrome (CMS-HCC) Hypertension Other hyperlipidemia 07/26/2024 Renal cell carcinoma (CMS-HCC) Thrombocytopenia (CMS-HCC) Thyroid disease No past surgical history on file. No family history on file. Social History Tobacco Use Smoking status: Former Types: Cigarettes Smokeless tobacco: Current Substance Use Topics Alcohol use: Yes Comment: History of alcohol abuse, reports no use in 3 week- typically endorses use as 4 glasses ofwine a days Allergies[1] Scheduled Meds: cefTRIAXone (ROCEPHIN) IVPB 2 g Intravenous Daily 0900 cholestyramine 4 g Oral Daily 0900 folic acid 1 mg Oral Daily 0900 [Held by provider] heparin 5,000 Units Subcutaneous 3 times per day [Held by provider] lactulose 20 g Oral QID levothyroxine 75 mcg Oral QAM AC magnesium sulfate in sterile water 50 mL 2 g Intravenous Once pantoprazole 40 mg Oral QAM AC potassium chloride ER 20 mEq Oral Once potassium chloride ER 40 mEq Oral Once rifAXIMin 550 mg Oral BID sodium bicarbonate 1,300 mg Oral TID thiamine 100 mg Oral Daily 0900 ursodioL 300 mg Oral BID zinc sulfate 220 mg Oral Daily 0900 Continuous Infusions: PRN Meds: acetaminophen, lactulose, lactulose, melatonin, ondansetron, oxyCODONE OR oxyCODONE Prior to Admission Meds: Home Medications Medication Sig Taking? Last Dose folic acid (FOLVITE) 1 MG tablet Take 1 tablet (1 mg total) by mouth daily. Yes 09/04/2024 lactulose (CHRONULAC) 10 gram/15 mL solution Take 30 mLs (20 g total) by mouth 3 times a day as needed (goal 2-3 bowel movements a day). Yes 09/04/2024 levothyroxine (SYNTHROID) 75 MCG tablet Take 1 tablet (75 mcg total) by mouth every morning before breakfast. Yes 09/04/2024 pantoprazole (PROTONIX) 40 MG tablet Take 1 tablet (40 mg total) by mouth every morning before breakfast. Yes 09/04/2024 potassium chloride (KLOR-CON M20) 20 MEQ tablet Take 2 tablets (40 mEq total) by mouth daily. Yes 09/04/2024 rifAXIMin (XIFAXAN) 550 mg Tab tablet Take 1 tablet (550 mg total) by mouth 2 times a day. Yes 09/04/2024 sodium bicarbonate 650 MG tablet Take 2 tablets (1,300 mg total) by mouth 3 times a day. Yes 09/04/2024 thiamine HCl (VITAMIN B-1) 100 MG tablet Take 1 tablet (100 mg total) by mouth daily. Yes 09/04/2024 traMADoL (ULTRAM) 50 mg tablet Take 1 tablet (50 mg total) by mouth every 12 hours as needed for Pain (Pain). Yes 09/04/2024 zinc sulfate (ZINCATE) 50 mg zinc (220 mg) capsule Take 1 capsule (220 mg total) by mouth daily. Yes 09/04/2024 cholestyramine-aspartame (PREVALITE) 4 gram Powd bulk Mix one scoop with 4-6 ounces of water and drink by mouth daily. Unknown Vitals: Temp: [97.6 ??F (36.4 ??C)-98.3 ??F (36.8 ??C)] 97.6 ??F (36.4 ??C) Heart Rate: [78-104] 91 Resp: [18-20] 20 BP: (125-154)/(62-84) 125/73 Intake/Output Summary (Last 24 hours) at 09/08/2024 0717 Last data filed at 09/07/2024 1200 Gross per 24 hour Intake -- Output 100 ml Net -100 ml Physical Exam Gen: NAD, sitting in chair HEENT: icteric sclera, EOMI CV: RRR Lungs: Non-labored breathing Abdomen: Tense, non-tender Skin: Jaundiced Ext: 1+ pitting LE edema, increased from piror Neuro: A&O x3. No focal deficits. No asterixis. Psych: appropriate mood and affect Laboratory and Imaging: Reviewed MELD 3.0: 37 at 09/08/2024 4:05 AM Calculated from: Serum Creatinine: 2.36 mg/dL at 09/08/2024 4:05 AM Serum Sodium: 137 mmol/L at 09/08/2024 4:05 AM Total Bilirubin: 18.7 mg/dL at 09/08/2024 4:05 AM Serum Albumin: 3.4 g/dL at 09/08/2024 4:05 AM INR(ratio): 2.3 at 09/08/2024 4:05 AM Age at listing (hypothetical): 39 years Sex: Male at 09/08/2024 4:05 AM Assessment: Julien Anderson is a 39 y.o. male with PMHx EtOH cirrhosis d/b HE, ascites, jaundice, EV, recent alcohol-associated hepatitis, hx of RCC s/p treatment and c/f congenital renal disorder, HTN, HLD, CKD4. Now with first time episode of SBP, apparent etiology of his current decompensation and pain. Non-candidate for inpatient transplant evaluation. Labs have improved steadily this admission, with treatment of his SBP. PLAN / RECOMMENDATIONS: #Decompensated EtOH cirrhosis #Jaundice - Daily MELD labs, MELD 37today - T bili continues to downtrend - INR 2.3, no bleeding, completed Vitamin K 10mg IV x3d #SBP #Ascities - Para 09/03 in ED with 1L off, no signs SBP. Repeat para 09/04 with 4L off and PMN>250, no organisms on Gram stain, culture NGTD. - Completed CTX x5d. Start cipro 500mg PO daily indefinitely for SBP ppx. - Will manage ascites with therapeutic paracenteses as needed. IR was consulted for para possibly today. Please include cell count and culture with labs. - Ongoing leaking from para site, can try dermabond with upcomming para, discussed positioning strategies with patient including lying on opposite side #diarrhea #hypokalemia, NAGMA - lactulose held, diarrhea improving, continue to titrate for 3-4 BM daily. #pruritus - Likely bile acid pruritus, possible drug rxn component with worsening after CTX but has gotten this on previous admissions. - Itching/flushing improved with benedryl pre-admin and slow admin of CTX, can consider this if requires in future admissions. - continue cholestyramine, ursodiol - Could consider naltrexone in future for bile acid pruritus, may additionally help with AUD, however avoiding while on oxy #HRS-CKD (previously type II HRS) - Cr downtrending, now at recent baseline - Pt with reaccumulating ascites and worsening LE edema, Cr is improving however recommend continued avoidence of diuresis for renal protection #Hepatic Encephalopathy - A&O x 3 - Lactulose held since 09/06 for >4 BM daily and rifaximin 550mg BID #Esophageal varices with known GOV2 bleed - previously on BB did not tolerate due to hypotension - Would eventually need repeat EGD for surveillance #Pre pretransplant eval #AUD in early remission - History of AUD, sober since Jun 2024. PETH negative 08/19/24 - Not a candidate for inpatient transplant evaluation. Would require 12 weeks of chemical dependency tx outpatient to be eligible for transplant evaluation, completed 4. Will meet with transplant social work team after discharge to discuss, had to miss appointment scheduled on day of admission - Ongoing discussions regarding goals of care, holding off on palliative consult. - Left renal mass will need follow up imaging (likely MRI) as part of transplant eval. Hx RCC with cryoablation. We will continue to follow along. Please reach out (preferably Epic Secure Chat) if there are any questions or concerns. If you have any questions, please contact the Liver fellow on-call. Assessment and plan discussed with Dr. Soto. Leatha Ceja, MS4 Hepatology [1] Allergies Allergen Reactions Adhesive Itching and Rash Tegaderm adhesive on Ivs, pt states its tolerable Duloxetine Other (See Comments) Became Manic Cosigned by Lino Soto MD at 09/08/2024 11:36 AM EDT Associated attestation - Lino Soto MD - 09/08/2024 11:36 AM EDT Attending Physician's Note: I was present with the medical student and have personally performed the physical exam and medical decision making. I have reviewed the medical student???s note and agree with their assessment and plan. 39 y.o. male with fdc history of alcoholic liver disease, jaundice, ascites, hepatic encephalopathy, sober since May 2024, admitted with abdominal pain and weakness. Initial testing negative for infection but repeat paracentesis confirmed SBP. Has completed 5 days of Ceftriaxone. Feeling antonio r.Kidney function also improving PE Vitals: 09/07/24 1525 09/07/24 2035 09/08/24 0425 09/08/24 0835 BP: 137/63 154/84 125/73 128/88 BP Location: Left upper arm Right upper arm Right upper arm Right upper arm Patient Position: Lying Lying Sitting Sitting BP Cuff Size: Regular Pulse: 93 104 91 91 Resp: 18 19 20 20 Temp: 97.7 ??F (36.5 ??C) 97.9 ??F (36.6 ??C) 97.6 ??F (36.4 ??C) 97.7 ??F (36.5 ??C) TempSrc: Oral Oral Oral Oral SpO2: 100% 100% 99% 100% Weight: Height: Appears frail Sclera icteric Abdomen is distended, firm, NT Alert and oriented times three, no asterixis Trace LE edema A&P 39 y.o. year old male with complex medical issues as detailed in HPI. Completed Ceftriaxone for 5 days. Will switch to fdc prophylaxis with Cipro 500 mg daily. Supportive care. Will avoid diuretics due to ongoing renal dysfunction. Will continue weekly paracentesis. Patient currently undergoing outpatient chemical dependency treatment (4 weeks complete of planned 12 weeks). Once this is complete, will be seen in transplant clinic for medical testing. This note was completely edited, written and [...] current evaluation and management for this patient. Lino Soto MD GI and Hepatology Staff * Ricci Saxena MD - 09/07/2024 6:17 PM EDT [facility] Cross Cover Note Follow up task / Call regarding: Julien Anderson Issue: Bmp follow up potassium 3.4. bicarb improving. Action: reordered potassium RICCI SAXENA MD Division of [facility] Medicine Department of Internal Medicine 6:16 PM, 09/07/2024 * Azalea Hughes, - 09/07/2024 6:45 AM EDT [facility] Medicine Progress Note [facility] // [facility] Chief Concern / Reason for Follow-Up Alcoholic cirrhosis of liver without ascites (CMS-HCC) Interval History and ROS NAEO. Patient reports ~7 bowel movements yesterday with bright red blood mixed in. Has not had moreblood in stool this morning. Reports he has already gone twice so far today. Is not having significant abdominal pain but does report seeping from his para site. Medications Scheduled Meds: albumin human 25% (12.5 g/ 50 mL) 12.5 g Intravenous Q30 Min cefTRIAXone (ROCEPHIN) IVPB 2 g Intravenous Daily 0900 cholestyramine 4 g Oral Daily 0900 diphenhydrAMINE 25 mg Oral Once folic acid 1 mg Oral Daily 0900 [Held by provider] heparin 5,000 Units Subcutaneous 3 times per day [Held by provider] lactulose 20 g Oral QID levothyroxine 75 mcg Oral QAM AC pantoprazole 40 mg Oral QAM AC rifAXIMin 550 mg Oral BID sodium bicarbonate 1,300 mg Oral TID ursodioL 300 mg Oral BID zinc sulfate 220 mg Oral Daily 0900 Continuous Infusions: PRN Meds:acetaminophen, lactulose, lactulose, melatonin, ondansetron, oxyCODONE OR oxyCODONE Vital Signs Temp: [97.4 ??F (36.3 ??C)-98.5 ??F (36.9 ??C)] 97.8 ??F (36.6 ??C) Heart Rate: [71-102] 93 Resp: [18-20] 18 BP: (117-153)/(56-77) 124/56 Intake/Output Summary (Last 24 hours) at 09/07/2024 0645 Last data filed at 09/06/20242049 Gross per 24 hour Intake 580 ml Output 575 ml Net 5 ml Physical Exam GEN: middle aged man, overweight, sitting on the edge of the bed, chronically ill-appearing, NAD SKIN: warm, dry, jaundiced CV: RRR, no M/R/G, no JAVIER, JVP not visualized PULM: WOB wnl, CTAB GI/: soft abd, moderate distension, diffuse TTP no rebounding or guarding MSK: moving all extremities NERUO: AOx3, appropriately conversant, strength intact in all extremities, no asterixis appreciated PSYCH: appropriate affect, pleasant, cooperative Laboratory Data Lab 09/07/2434109/06/24 16309/06/24 0430 09/05/24 0724 WBC 4.0 5.1 4.3 4.6 HEMOGLOBIN 7.4* 8.3* 8.4* 7.6* HEMATOCRIT 20.7* 23.3* 22.8* 21.1* MEAN CORPUSCULAR VOLUME 100.2* 100.4* 99.9 99.7 PLATELETS 40* 45* 41* 37* Lab 09/07/24 03409/06/24 16309/06/24 0430 09/05/24 0724 SODIUM 137 137 137 134 POTASSIUM 3.2* 3.2* 3.1* 3.6 CHLORIDE 111* 109 109 107 CO2 15* 17* 17* 19* BUN 36* 37* 40* 42* CREATININE 2.60* 2.66* 2.70* 2.92* GLUCOSE 150* 108* 122* 108* Lab 09/07/24 03409/06/24 16309/06/24 0430 09/05/24 0724 09/04/24 1621 CALCIUM 8.3* 8.7 8.6 8.6 9.1 MAGNESIUM 1.7 -- 1.8 2.0 2.4 PHOSPHORUS 1.9* 2.2 2.0* 2.1 -- Lab 09/07/24 03409/06/24 0430 09/05/24 0724 09/04/24 0522 INR 2.3* 2.2* 2.5* 3.0* PROTHROMBIN TIME 26.1* 25.3* 27.8* 32.0* Lab 09/07/24 0342 09/06/24 1637 09/06/24 0430 09/05/24 0724 09/04/24 0522 ALT 27 -- 25 28 30 AST 47* -- 46* 41* 43* ALK PHOS 104 -- 85 89 75 BILIRUBIN TOTAL 18.9* -- 21.3* 23.0* 25.5* BILIRUBIN DIRECT 9.8* -- 14.43* 15.57* 17.39* ALBUMIN 3.5 -- 3.7 3.3* 3.2* ALBUMINKID 3.5 3.9 3.7 -- -- Lab 09/03/24 1028 COLOR, URINE Yellow CLARITY Cloudy* SPECIFIC GRAVITY, URINE >1.035* PH UA 6.5 PROTEIN UA Trace* GLUCOSE UA Negative KETONES UA Negative BILIRUBIN UA Small* BLOOD UA Negative NITRITE UA Negative UROBILINOGEN UA <2.0 LEUKOCYTES UA Negative RBC UA 1 WBC UA 1 BACTERIA Occasional* MUCUS Present* No results found for: BNP Lab Results Component Value Date TSH 0.92 09/03/2024 FREET4 0.74 09/03/2024 Test Results No results found. Assessment & Plan Julien Anderson is a 39 y.o. male on hospital day 4 (admitted09/03/2024). The medical issues being addressed in today's encounter are as follows: Assessment & Plan Alcoholic cirrhosis of liver without ascites (CMS-HCC) Due to EtOH, h/o EtOH hepatitis 06/2024 s/p prednisolone. MELD as below. Hepatology following. 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, patent hepatic arteries/veins, no focal hepatic lesions - HRS: first HRS at in 06/2024, last admission 08/12-08/29 improved w/ NE in MICU and albumin challenge, consulted renal, Cr improved with albumin challenge, stopped midodrine and octreotide 200 mcg (received 3 doses 09/03-09/04), goal MAP>70 will resume if needed - Transplant: not eligible yet as last EtOH use 06/2024, peth pending - INR rise, likely related to cirrhosis but will give IV vit K 10mg daily x3d MELD 3.0: 38 at 09/07/2024 3:42 AM Calculated from: Serum Creatinine: 2.6 mg/dL at 09/07/2024 3:42 AM Serum Sodium: 137 mmol/L at 09/07/2024 3:42 AM Total Bilirubin: 18.9 mg/dL at 09/07/2024 3:42 AM Serum Albumin: 3.5 g/dL at 09/07/2024 3:42 AM INR(ratio): 2.3 at 09/07/2024 3:42 AM Age at listing (hypothetical): 39 years Sex: Male at 09/07/2024 3:42 AM Abdominal pain Hyperacute onset while asleep 1hr prior to presentation. Initially c/f SBP, however cell counts unremarkable. Possibly due to worsening ascites, slightly improve s/p para in the ED though also received pain meds. Possible biliary colic given cholelithiasis, though pain diffuse. Low c/f cholecystitis given unremarkable RUQUS and LFTs relatively stable, mesenteric ischemia given lactate wnl. Acute hepatitis panel neg. - Cont Tylenol PRN (max 2g/day) - Cont oxy 2.5/5mg PRN, hold if mental status worsens - Stop home tramadol Hypokalemia Acute on chronic. Likely due to continued GI losses. 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 K 3.2 today - Replace PRN - Recheck pm RFP NADIYA (acute kidney injury) (CMS-HCC) Admit Cr 3.01 (from 2.91 on 09/02, recent BL 2.7-3.0), peak Cr 3.52, now improving. UA appears concentrated, no c/f obstruction on CT A/P. Treated as HRS initially given severity of CKD and cirrhosis,de-escalating tx as above. Renal consulted. - Cont home sodium bicarb 1300mg TID, consider additional bicarb pending pm renal (though will do so with caution given Na restriction) - Albumin challenge and octreotide/midodrine as above CKD (chronic kidney disease) stage 4, GFR 15-29 ml/min ([facility]) As above for NADIYA Metabolic encephalopathy Likely multifactorial from HE and morphine I/s/o CKD. UA not c/f infxn. TSH, VBG, CXR unremarkable;deferred CTH. Improving. - Treatment of infection as above - Delirium precautions Alcohol use disorder Last use 06/2024 (admitted for EtOH hepatitis). - Peth negative - Cont home folic acid - PO thiamine supp Metabolic acidosis with normal anion gap and bicarbonate losses As above for CKD. 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 Had cryoablation w/ IR 10/2022. 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 Follow-up outpt urology. GERD (gastroesophageal reflux disease) - Cont home PPI Hypothyroidism - Cont home levothyroxine Itching - Cont home cholestyramine - Cont ursodiol Thrombocytopenia ([facility]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 Hypertension No meds. Other hyperlipidemia No meds Anemia Hgb 7.4 today, down from 11.9 earlier this admission. Did report some bright red blood in stool as below. Denies symptoms of anemia including SOB, weakness. - CTM with daily CBC - Monitor for signs/symptoms of bleeding BRBPR (bright red blood per rectum) Reports bright red blood with several liquid bowel movements starting 08/17. Minimal blood in toilet was observed. Repeat CBC yesterday pm stable. Pt reports history of hemorrhoid and intermittent bleeding. No pain reported DIET: Diet/Nutrition Orders Diet low sodium Sodium 2 gm (low) Frequency: Effective Now Number of Occurrences: Until Specified Order Questions: Na restriction: Sodium 2 gm (low) Suicide/Behavior Risk Modification? No TLD: Patient Lines/Drains/Airways Status Active Line / PIV Line Name Placement date Placement time Site Days Peripheral IV 09/03/24 Anterior;Left;Proximal Forearm 09/03/24 0525 Forearm 4 Peripheral IV 09/03/24 Anterior;Right Forearm 09/03/24 0557 Forearm 4 PPX: SQH, holding due to plt<50 CODE: Full Code DISPO: H3 AZALEA HUGHES DO Department of Internal Medicine 6:45 AM, 09/07/2024 Cosigned by Kathie Sanchez MD at 09/07/2024 10:23 AM EDT Associated attestation - Kathie Sanchez MD - 09/07/2024 10:23 AM EDT I saw and examined the patient on 09/07/24, and discussed the case with the resident and agree withthe findings and plan as documented in the resident???s note. #SBP Last day of CTX today, getting pre-treatment with benadryl Will discuss additional albumin with hepatology; noted to have worsening LE edema today. Has leaking from para site. Will need SBP ppx going forward #Hypokalemia #Hypophosphatemia #NAGMA 2/2 #Frequent BM Has not received lactulose since evening 09/05 If more Bms today will send C diff and enteric pathogen panel Requiring repeat BMPs and aggressive K repletion Phos newly low today, will replete Cont to hold lactulose Discuss increasing sodium bicarb with renal #EtOH cirrhosis Needs outpatient chemical dependence therapy prior to evaluating for liver transplant Cont rifaximin, pause lactulose today #NADIYA, resolved Cr appears to be at baseline Pt is not on diuretics at home, will discuss with hepatology Remainder of care per resident note. Medical Decision Making: Acute or chronic illness that may pose threat to life or function Discussed with physician/SAWYER from another specialty or practice, other licensed professional (PT/OT/SHOULDER BONER/RT), or a non-medical community professional: hepatology Labs reviewed (1 pt each): BMP x2, LFT, CBC, INR Review of notes from a different specialty or different practice: hepatology Kathie Sanchez MD [facility] 09/07/2024 10:22 AM * Jaen Maher MD - 09/07/2024 6:39 AM EDT Images from the original note were not included. Department of Internal Medicine Nephrology & Hypertension Progress Note Patient: Julien Anderson Date of Admit: 09/03/2024 Referring physician: Kathie Sanchez MD Assessment: Renal Function: Cr: 2.60 Bun: 36 on 09/07/2024 Baseline Scr 1-1.2 mg/dL Recurrent admission in recent past with NADIYA in the context of decompensated cirrhosis. Most recently was admitted between 08/12-08/19. Managed on the lines of HRS. Discharge creatinine 2.7. Had LVP on 08/27/24. Now uptrending creatinine. UA-6.5/> 1.035/trace/negative/NAD Urine electrolytes- <10//<15 Ultrasound retroperitoneum 09/03/2024 Right kidney: 11.3 cm in length. Normal parenchymal echogenicity. No hydronephrosis. Nonobstructingright renal calculi are better seen on the recent CT Left kidney: 13 cm in length. Normal parenchymal echogenicity. No hydronephrosis. Recently described partially calcified left renal lesion is not well seen Received IV contrast on 09/03/2024 Electrolytes: Na: 137 K: 3.2 Cl: 111 Ma.7 Ca: 8.3 Phos: 1.9 Hypokalemia Hypomagnesemia Acid Base Status: Anion Gap: 11 Bicarb: 15 NAGMA of renal dysfunction CVS: BP: 124/56 Goal MAP > 75 On IV albumin + midodrine Volume Status: Intake/Output Summary (Last 24 hours) at 09/07/2024 0639 Last data filed at 09/06/20242049 Gross per 24 hour Intake 580 ml Output 575 ml Net 5 ml UOP: 575 mL/24 hrs CKD-MBD: Ca: 8.3 PO4: 1.9 Alb: 3.5; 3.5 PTH: No results found for requested labs within last 3600 days. on No results found for requested labs within last 3600 days. Vit D: No results found for requested labs within last 3600 days. on No results found for requestedlabs within last 3600 days. No current issues Anemia of CKD: Hgb 7.4 Hct 20.7 Plt 40 Iron No results found for requested labs within last 3600 days. on No results found for requested labs within last 3600 days. Ferritin No results found for requested labs within last 3600 days. on No results found for requested labs within last 3600 days. TIBC: No results found for requested labs within last 3600 days. on No results found for requested labs within last 3600 days. Haptoglobin: No results found for requested labs within last 3600 days. on No results found for requested labs within last 3600 days. LDH: No results found for requested labs within last 3600 days. on No results found for requested labs within last 3600 days. Consistent with anemia of chronic disease transfusion per primary Plan: Replace potassium / magnesium NAGMA 2/2 diarrhea - PO NaHCO3 1300/1300/1300 Midodrine + Octreotide; titrate to MAP goal >70-75 No acute / urgent / emergent indication for PROCESSING SPECIALIST at this time. Nephrology signing off. Please do not hesitate to contact us with any questions, comments, concerns, clarifications, etc. We appreciate the opportunity to participate in this patient's care. Please contact us when patient is ready for discharge so that we may set up a follow up appointment in our clinic. Signed: Dr. JEAN MAHER MD Nephrology, PGY-4, Fellow Physician 09/07/24 6:39 AM Attending: Dr. Ruth Simons MD, Nephrology Chief Complaint Chief Complaint Patient presents with Abdominal Pain Reason for Consult Recurrent NADIYA in the setting of D/cirrhosis History of Present Illness 39/M PMH of EToH related D cirrhosis (EV, HRS, ascites, HCV), RCC s/p ablation (left side). Recently wasdischarged from hospital on 08/19/2024, after being managed for NADIYA/HRS. Now presented with pain abdomen following LVP on 08/27. On evaluation found to have worsened kidney function. Nephrology consulted for assistance in management. Interval History Seen in room. Resting comfortably. Stable vitals. Histories he has a past medical history of Alcoholic cirrhosis of liver (CMS-HCC), Alcoholic hepatitis, Esophageal varices (CMS-HCC), Hepatorenal syndrome (CMS- HCC), Hypertension, Other hyperlipidemia (07/26/2024), Renal cell carcinoma (CMS-HCC), Thrombocytopenia (CMS-HCC), and Thyroid disease. he has no past surgical history on file. he family history is not on file. he reports that he has quit smoking. His smoking use included cigarettes. He uses smokeless tobacco. He reports current alcohol use. He reports current drug use. Drug: Marijuana. Allergies[1] Physical Exam Patient Vitals for the past 4 hrs: BP Temp Temp src Pulse Resp SpO2 09/07/24 0352 124/56 97.8 ??F (36.6 ??C) Oral 93 18 100 % Wt Readings from Last 3 Encounters: 09/05/24 (!) 262 lb 9.6 oz (119.1 kg) 09/02/24 (!) 258 lb (117 kg) 08/17/24 (!) 242 lb 11.2 oz (110.1 kg) Date 09/06/24 07 - 09/07/24 0659 09/07/24 0700 - 09/08/24 0659 Shift 6754-8368 3298-4061 1795-0014 24 Hour Total 0470-7169 2450-1716 3524-9168 24 Hour Total INTAKE P.O. 240 340 580 P.O. 240 340 580 Shift Total(mL/kg) 240(2) 340(2.9) 580(4.9) OUTPUT Urine(mL/kg/hr) 200(0.2) 375(0.4) 575 Urine 200 375 575 Urine Occurrence 3 x 2 x 5 x Emesis/NG output 0 0 Emesis 0 0 Emesis Occurrence 0 x 0 x Stool Stool Occurrence 5 x 2 x 7 x Blood 0 0 Est Blood Loss 0 0 Blood 0 0 Shift Total(mL/kg) 200(1.7) 375(3.1) 575(4.8) Weight (kg) 119.1 119.1 119.1 119.1 119.1 119.1 119.1 119.1 General appearance: Chronically ill, icteric HEENT: EOMi, conjunctiva nl, sclera non-icteric Lungs: No RD, CTA b/l Heart: RRR, no audible murmurs Abdomen: Firm, NT, distended, +BS Extremities:leg edema + Psych: good eye contact, normal affect Neuro: AAOx3, gross motor intact Laboratory Data and Imaging Recent Labs 09/06/24 0430 09/06/24 1637 09/07/24 0342 WBC 4.3 5.1 4.0 HGB 8.4* 8.3* 7.4* HCT 22.8* 23.3* 20.7* MCV 99.9 100.4* 100.2* PLT 41* 45* 40* Recent Labs 09/05/24 0724 09/05/24 0724 09/06/24 0430 09/06/24 1637 09/07/24 0342 NA 134 -- 137 137 137 K 3.6 -- 3.1* 3.2* 3.2* CL 107 -- 109 109 111* CO2 19* -- 17* 17* 15* BUN 42* -- 40* 37* 36* CREATININE 2.92* -- 2.70* 2.66* 2.60* GLUCOSE 108* -- 122* 108* 150* CALCIUM 8.6 -- 8.6 8.7 8.3* MG 2.0 -- 1.8 -- 1.7 PHOS 2.1 -- 2.0* 2.2 1.9* ANIONGAP 8 -- 11 11 11 ALBUMIN 3.3* < > 3.7 3.7 3.9 3.5 3.5 < > = values in this interval not displayed. Recent Labs 09/06/24 04309/06/24 16309/07/24 0342 CALCIUM 8.6 8.7 8.3* PHOS 2.0* 2.2 1.9* No results found for: IRON , TIBC , FERRITIN No results found for: [id number] , FOLATE Lab Results Component Value Date COLORU Yellow 09/03/2024 CLARITYU Cloudy (A) 09/03/2024 PROTEINUA Trace (A) 09/03/2024 PHUR 6.5 09/03/2024 LABSPEC >1.035 (H) 09/03/2024 GLUCOSEU Negative 09/03/2024 BLOODU Negative 09/03/2024 LEUKOCYTESUR Negative 09/03/2024 NITRITE Negative 09/03/2024 BILIRUBINUR Small (A) 09/03/2024 UROBILINOGEN <2.0 09/03/2024 RBCUA 1 09/03/2024 WBCUA 1 09/03/2024 BACTERIA Occasional (A) 09/03/2024 No results for input(s): NAUR , KUR , CLUR in the last 72 hours. Invalid input(s): CO2UR , CRUR No results found for: MICROALBUR , [id number] In addition to the above an extensive amount of complex data in the patients lab and chart were reviewed. Medications: Home Medications: Home Medications Medication Sig Taking? Last Dose folic acid (FOLVITE) 1 MG tablet Take 1 tablet (1 mg total) by mouth daily. Yes 09/04/2024 lactulose (CHRONULAC) 10 gram/15 mL solution Take 30 mLs (20 g total) by mouth 3 times a day as needed (goal 2-3 bowel movements a day). Yes 09/04/2024 levothyroxine (SYNTHROID) 75 MCG tablet Take 1 tablet (75 mcg total) by mouth every morning before breakfast. Yes 09/04/2024 pantoprazole (PROTONIX) 40 MG tablet Take 1 tablet (40 mg total) by mouth every morning before breakfast. Yes 09/04/2024 potassium chloride (KLOR-CON M20) 20 MEQ tablet Take 2 tablets (40 mEq total) by mouth daily. Yes 09/04/2024 rifAXIMin (XIFAXAN) 550 mg Tab tablet Take 1 tablet (550 mg total) by mouth 2 times a day. Yes 09/04/2024 sodium bicarbonate 650 MG tablet Take 2 tablets (1,300 mg total) by mouth 3 times a day. Yes 09/04/2024 thiamine HCl (VITAMIN B-1) 100 MG tablet Take 1 tablet (100 mg total) by mouth daily. Yes 09/04/2024 traMADoL (ULTRAM) 50 mg tablet Take 1 tablet (50 mg total) by mouth every 12 hours as needed for Pain (Pain). Yes 09/04/2024 zinc sulfate (ZINCATE) 50 mg zinc (220 mg) capsule Take 1 capsule (220 mg total) by mouth daily. Yes 09/04/2024 cholestyramine-aspartame (PREVALITE) 4 gram Powd bulk Mix one scoop with 4-6 ounces of water and drink by mouth daily. Unknown Inpatient Meds: albumin human 25% (12.5 g/ 50 mL) 12.5 g Intravenous Q30 Min cefTRIAXone (ROCEPHIN) IVPB 2 g Intravenous Daily 0900 cholestyramine 4 g Oral Daily 0900 diphenhydrAMINE 25 mg Oral Once folic acid 1 mg Oral Daily 0900 [Held by provider] heparin 5,000 Units Subcutaneous 3 times per day [Held by provider] lactulose 20 g Oral QID levothyroxine 75 mcg Oral QAM AC pantoprazole 40 mg Oral QAM AC rifAXIMin 550 mg Oral BID sodium bicarbonate 1,300 mg Oral TID ursodioL 300 mg Oral BID zinc sulfate 220 mg Oral Daily 0900 Continuous Infusions: PRN medications: acetaminophen, lactulose, lactulose, melatonin, ondansetron, oxyCODONE OR oxyCODONE Diagnostic Imaging Reviewed in EMR. The note reviewed and copied forward (with edits) from a note written by me on 09/04/24. I have reviewed and updated the history, physical exam, data, assessment, and plan of the note so that it reflects my evaluation and management of the patient. [1] Allergies Allergen Reactions Adhesive Itching and Rash Tegaderm adhesive on Ivs, pt states its tolerable Duloxetine Other (See Comments) Became Manic Cosigned by Aneudy Simons at 09/07/2024 10:47 PM EDT Associated attestation - Aneudy Simons - 09/07/2024 10:47 PM EDT Patient is seen and examined by me with Fellow and team on 09/07/2024 Medicines and Data reviewed Interim notes in chart reviewed. I agree in full with the assessment and plan as outlined in the fellows note. My additional comments are Seen in the room, diarrhea is slowed down and having formed BMs today but still reports several BMsyesterday. Bicarb remains low and is hypokalemic on AM labs NADIYA - due to HRS presumed. - seem to have respond to albumin treatment. Creatinine has stabilized now at 2.6 today and now non-oliguric. UOP is lower likely from large GI losses. - recommend continuing with IV albumin therapy to keep volume status acceptable while having diarrhea. - giving bicarb tabs 1300 mg TID for NAGMA related to diarrhea. Use midodrine and octreotide for MAP goals of ~70-75. - no indication for PROCESSING SPECIALIST at this time - still have 8 out of 12 weeks left of completing chemical dependency treatment before getting worked up for liver transplant evaluation. Of note, there is a 3 x 2.3 cm mass seen in left kidney unclear if lesion from prior cyoablation or a complex renal cyst. This will need to be followed up (likely MRI abdomen) as outpatient once his liver transplant evaluation begins. Will sign off at this time. ANEUDY SIMONS 09/07/2024 This note was completely edited, written and [...] evaluation and management for this patient. * Azalea Hughes, DO - 09/06/2024 7:36 AM EDT Hospital Medicine Progress Note [facility] // [facility] Chief Concern / Reason for Follow-Up Alcoholic cirrhosis of liver without ascites (CMS-HCC) Interval History and ROS NAEO. Patient reports ~10 bowel movements yesterday. States his itching has improved. No shortness of breath since his itchy episode yesterday morning. Reports his abdominal pain is much improved this morning. Denies fevers or chills. Reports bright red blood in toilet with bowel movement this morning. Medications Scheduled Meds: [START ON 09/07/2024] albumin human 25% (12.5 g/ 50 mL) 12.5 g Intravenous Q30 Min cefTRIAXone (ROCEPHIN) IVPB 2 g Intravenous Daily 0900 cholestyramine 4 g Oral Daily 0900 folic acid 1 mg Oral Daily 0900 [Held by provider] heparin 5,000 Units Subcutaneous 3 times per day [Held by provider] lactulose 20 g Oral QID levothyroxine 75 mcg Oral QAM AC pantoprazole 40 mg Oral QAM AC rifAXIMin 550 mg Oral BID sodium bicarbonate 1,300 mg Oral TID ursodioL 300 mg Oral BID zinc sulfate 220 mg Oral Daily 0900 Continuous Infusions: PRN Meds:acetaminophen, lactulose, lactulose, melatonin, ondansetron, oxyCODONE OR oxyCODONE Vital Signs Temp: [97.6 ??F (36.4 ??C)-98.4 ??F (36.9 ??C)] 97.9 ??F (36.6 ??C) Heart Rate: [71-85] 71 Resp: [18] 18 BP: (111-134)/(57-77) 117/57 Intake/Output Summary (Last 24 hours) at 09/06/2024 1103 Last data filed at 09/06/2024 0500 Gross per 24 hour Intake 850 ml Output 985 ml Net -135 ml Physical Exam GEN: middle aged man, overweight, sitting on the edge of the bed, chronically ill-appearing, NAD SKIN: warm, dry, jaundiced CV: RRR, no M/R/G, no JAVIER, JVP not visualized PULM: WOB wnl, CTAB GI/: soft abd, moderate distension, diffuse TTP no rebounding or guarding MSK: moving all extremities NERUO: AOx3, appropriately conversant, SILT in all extremities, no asterixis appreciated PSYCH: appropriate affect, pleasant, cooperative Laboratory Data Lab 09/06/24 04309/05/24 0724 09/04/24 0522 09/03/24 1726 WBC 4.3 4.6 9.6 9.9 HEMOGLOBIN 8.4* 7.6* 8.5* 8.4* HEMATOCRIT 22.8* 21.1* 23.1* 23.1* MEAN CORPUSCULAR VOLUME 99.9 99.7 98.6 98.3 PLATELETS 41* 37* 41* 42* Lab 09/06/24 0430 09/05/24 0724 09/04/24 1621 09/04/24 0522 SODIUM 137 134 134 132* POTASSIUM 3.1* 3.6 3.5 3.7 CHLORIDE 109 107 104 103 CO2 17* 19* 20* 18* BUN 40* 42* 43* 41* CREATININE 2.70* 2.92* 3.31* 3.21* GLUCOSE 122* 108* 142* 162* Lab 09/06/24 0430 09/05/24 0724 09/04/24 1621 09/04/24 0522 09/03/24 1343 09/03/24 1049 CALCIUM 8.6 8.6 9.1 8.5* < > 8.6 MAGNESIUM 1.8 2.0 2.4 2.4 < > 1.8 PHOSPHORUS 2.0* 2.1 -- 2.2 -- 2.5 < > = values in this interval not displayed. Lab 09/06/24 0430 09/05/24 0724 09/04/24 0522 09/03/24 0535 INR 2.2* 2.5* 3.0* 2.0* PROTHROMBIN TIME 25.3* 27.8* 32.0* 22.9* Lab 09/06/24 0430 09/05/24 0724 09/04/24 0522 09/03/24 0529 ALT 25 28 30 45 AST 46* 41* 43* 73* ALK PHOS 85 89 75 139* BILIRUBIN TOTAL 21.3* 23.0* 25.5* 32.5* BILIRUBIN DIRECT 14.43* 15.57* 17.39* 19.8* ALBUMIN 3.7 3.3* 3.2* 3.4* ALBUMINKID 3.7 -- -- -- Lab 09/03/24 1028 COLOR, URINE Yellow CLARITY Cloudy* SPECIFIC GRAVITY, URINE >1.035* PH UA 6.5 PROTEIN UA Trace* GLUCOSE UA Negative KETONES UA Negative BILIRUBIN UA Small* BLOOD UA Negative NITRITE UA Negative UROBILINOGEN UA <2.0 LEUKOCYTES UA Negative RBC UA 1 WBC UA 1 BACTERIA Occasional* MUCUS Present* No results found for: BNP Lab Results Component Value Date TSH 0.92 09/03/2024 FREET4 0.74 09/03/2024 Test Results No results found. Assessment & Plan Julien Anderson is a 39 y.o. male on hospital day 3 (admitted09/03/2024). The medical issues being addressed in today's encounter are as follows: Assessment & Plan Alcoholic cirrhosis of liver without ascites (CMS-HCC) Due to EtOH, h/o EtOH hepatitis 06/2024 s/p prednisolone. MELD as below. Hepatology following. 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, patent hepatic arteries/veins, no focal hepatic lesions - HRS: first HRS at in 06/2024, last admission 08/12-08/29 improved w/ NE in MICU and albumin challenge, consulted renal, Cr improved with albumin challenge, stopped midodrine and octreotide 200 mcg (received 3 doses 09/03-09/04), goal MAP>70 will resume if needed - Transplant: not eligible yet as last EtOH use 06/2024, peth pending - INR rise, likely related to cirrhosis but will give IV vit K 10mg daily x3d MELD 3.0: 38 at 09/06/2024 4:30 AM Calculated from: Serum Creatinine: 2.7 mg/dL at 09/06/2024 4:30 AM Serum Sodium: 137 mmol/L at 09/06/2024 4:30 AM Total Bilirubin: 21.3 mg/dL at 09/06/2024 4:30 AM Serum Albumin: 3.7 g/dL (Using max of 3.5 g/dL) at 09/06/2024 4:30 AM INR(ratio): 2.2 at 09/06/2024 4:30 AM Age at listing (hypothetical): 39 years Sex: Male at 09/06/2024 4:30 AM Abdominal pain Hyperacute onset while asleep 1hr prior to presentation. Initially c/f SBP, however cell counts unremarkable. Possibly due to worsening ascites, slightly improve s/p para in the ED though also received pain meds. Possible biliary colic given cholelithiasis, though pain diffuse. Low c/f cholecystitis given unremarkable RUQUS and LFTs relatively stable, mesenteric ischemia given lactate wnl. Acute hepatitis panel neg. - Trend lactates and abd exam - Cont Tylenol PRN (max 2g/day) - Cont oxy 2.5/5mg PRN, hold if mental status worsens - Stop home tramadol Hypokalemia Acute on chronic. Possible due to continued GI losses. 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 Patient with large amount BM yesterday, K 3.1 today - Replace PRN - Recheck pm RFP NADIYA (acute kidney injury) ([facility]) Admit Cr 3.01 (from 2.91 on 09/02, recent BL 2.7-3.0), peak Cr 3.52, now improving. UA appears concentrated, no c/f obstruction on CT A/P. Treated as HRS initially given severity of CKD and cirrhosis,de-escalating tx as above. Renal consulted. - Cont home sodium bicarb 1300mg TID - Albumin challenge and octreotide/midodrine as above CKD (chronic kidney disease) stage 4, GFR 15-29 ml/min ([facility]) As above for NADIYA Metabolic encephalopathy Likely multifactorial from HE and morphine I/s/o CKD. UA not c/f infxn. TSH, VBG, CXR unremarkable;deferred CTH. Improving. - BCx 09/03 NGTD - Treatment of infection as above - Delirium precautions Alcohol use disorder Last use 06/2024 (admitted for EtOH hepatitis). - Peth negative - Cont home folic acid - Cont empiric IV thiamine 200mg q8h x2d, then taper Metabolic acidosis with normal anion gap and bicarbonate losses As above for CKD. 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 Had cryoablation w/ IR 10/2022. 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 Follow-up outpt urology. GERD (gastroesophageal reflux disease) - Cont home PPI Hypothyroidism - Cont home levothyroxine Itching - Cont home cholestyramine - Cont ursodiol Thrombocytopenia ([facility]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 Hypertension No meds. Other hyperlipidemia No meds Anemia Hgb today stable at 8.2, down from 11.9 earlier this admission. Did have some bright red blood in stool this am. - CTM with daily CBC - Monitor for signs/symptoms of bleeding DIET: Diet/Nutrition Orders Diet low sodium Sodium 2 gm (low) Frequency: Effective Now Number of Occurrences: Until Specified Order Questions: Na restriction: Sodium 2 gm (low) Suicide/Behavior Risk Modification? No TLD: Patient Lines/Drains/Airways Status Active Line / PIV Line Name Placement date Placement time Site Days Peripheral IV 09/03/24 Anterior;Left;Proximal Forearm 09/03/24 0525 Forearm 3 Peripheral IV 09/03/24 Right Antecubital 09/03/24 0757 Antecubital 3 Peripheral IV 09/03/24 Anterior;Right Forearm 09/03/24 0557 Forearm 3 PPX: SQH, holding due to plt<50 CODE: Full Code DISPO: H3 AZALEA HUGHES DO Department of Internal Medicine 11:03 AM, 09/06/2024 Cosigned by Kathie Sanchez MD at 09/06/2024 1:06 PM EDT Associated attestation - Kathie Sanchez MD - 09/06/2024 1:06 PM EDT I saw and examined the patient on 09/06/24, and discussed the case with the resident and agree withthe findings and plan as documented in the resident???s note. Pt sitting up in chair today, eating breakfast. Subjectively much improved from yesterday. Itching persists but is not as severe. Abd pain is resolved. Reports an episode of BRBPR, which he has left in the toilet for medical team to see. Reports he has already had 3 Bms today, estimates 10 since yesterday. VS WNL. On exam, appears well, NAD. + Jaundice. CV RRR, Pulm CTAB. Abd with mild distention, S, NT.BL LE 1+ pitting edema today. #BRBPR #Acute anemia Minimal red blood in toilet bowel Pt reports h/o hemorrhoid with intermittent bleeding, denies rectal pain. Hb 6.4 today, improved from yesterday. Asx from anemia standpoint. Monitor. #SBP Has 1 day of SBP tx left, will discuss with hepatology. Favor stopping albumin given LE edema if hepatology amenable. Will need SBP ppx going forward #NADIYA, resolved Cr appears to be at baseline Pt is not on diuretics at home, will discuss with hepatology #Hypokalemia and #NAGMA 2/2 #Frequent BM Will reduce lactulose #EtOH cirrhosis Needs outpatient chemical dependence therapy prior to evaluating for liver transplant Cont rifaximin, pause lactulose today Remainder of care per resident note. Medical Decision Making: Acute or chronic illness that may pose threat to life or function Discussed with physician/SAWYER from another specialty or practice, other licensed professional (PT/OT/SHOULDER BONER/RT), or a non-medical community professional: hepatology Labs reviewed (1 pt each): BMP, LFT, CBC, INR Review of notes from a different specialty or different practice: renal Katihe Sanchez MD Hospital Medicine 09/06/2024 1:06 PM * Jean Maher MD - 09/06/2024 6:14 AM EDT Images from the original note were not included. Department of Internal Medicine Nephrology & Hypertension Progress Note Patient: Julien Anderson Date of Admit: 09/03/2024 Referring physician: Kathie Sanchez MD Assessment: Renal Function: Cr: 2.70 Bun: 40 on 09/06/2024 Baseline Scr 1-1.2 mg/dL Recurrent admission in recent past with NADIYA in the context of decompensated cirrhosis. Most recently was admitted between 08/12-08/19. Managed on the lines of HRS. Discharge creatinine 2.7. Had LVP on 08/27/24. Now uptrending creatinine. UA-6.5/> 1.035/trace/negative/NAD Urine electrolytes- <10/23/<15 Ultrasound retroperitoneum 09/03/2024 Right kidney: 11.3 cm in length. Normal parenchymal echogenicity. No hydronephrosis. Nonobstructingright renal calculi are better seen on the recent CT Left kidney: 13 cm in length. Normal parenchymal echogenicity. No hydronephrosis. Recently described partially calcified left renal lesion is not well seen Received IV contrast on 09/03/2024 Electrolytes: Na: 137 K: 3.1 Cl: 109 Ma.8 Ca: 8.6 Phos: 2.0 Mild hyponatremia in the setting of decompensated liver disease and renal dysfunction Acid Base Status: Anion Gap: 11 Bicarb: 17 NAGMA of renal dysfunction CVS: BP: 111/68 Goal MAP > 75 On IV albumin + midodrine Volume Status: Intake/Output Summary (Last 24 hours) at 09/06/2024 0615 Last data filed at 09/06/2024 0500 Gross per 24 hour Intake 850 ml Output 985 ml Net -135 ml UOP: 985 mL/24 hrs CKD-MBD: Ca: 8.6 PO4: 2.0 Alb: 3.7; 3.7 PTH: No results found for requested labs within last 3600 days. on No results found for requested labs within last 3600 days. Vit D: No results found for requested labs within last 3600 days. on No results found for requestedlabs within last 3600 days. No current issues Anemia of CKD: Hgb 8.4 Hct 22.8 Plt 41 Iron No results found for requested labs within last 3600 days. on No results found for requested labs within last 3600 days. Ferritin No results found for requested labs within last 3600 days. on No results found for requested labs within last 3600 days. TIBC: No results found for requested labs within last 3600 days. on No results found for requested labs within last 3600 days. Haptoglobin: No results found for requested labs within last 3600 days. on No results found for requested labs within last 3600 days. LDH: No results found for requested labs within last 3600 days. on No results found for requested labs within last 3600 days. Consistent with anemia of chronic disease transfusion per primary Plan: Replace potassium / magnesium NAGMA 2/2 diarrhea - PO NaHCO3 1300/1300/1300 Signed: Dr. JEAN MAHER MD Nephrology, PGY-4, Fellow Physician 09/06/24 6:18 AM Attending: Dr. Ruth Simons MD, Nephrology Chief Complaint Chief Complaint Patient presents with Abdominal Pain Reason for Consult Recurrent NADIYA in the setting of D/cirrhosis History of Present Illness 39/M PMH of EToH related D cirrhosis (EV, HRS, ascites, HCV), RCC s/p ablation (left side). Recently wasdischarged from hospital on 08/19/2024, after being managed for NADIYA/HRS. Now presented with pain abdomen following LVP on 08/27. On evaluation found to have worsened kidney function. Nephrology consulted for assistance in management. Interval History Seen in room. Resting comfortably. Stable vitals. Histories he has a past medical history of Alcoholic cirrhosis of liver (CMS-HCC), Alcoholic hepatitis, Esophageal varices (CMS-HCC), Hepatorenal syndrome (CMS- HCC), Hypertension, Other hyperlipidemia (07/26/2024), Renal cell carcinoma (CMS-HCC), Thrombocytopenia (CMS-HCC), and Thyroid disease. he has no past surgical history on file. he family history is not on file. he reports that he has quit smoking. His smoking use included cigarettes. He uses smokeless tobacco. He reports current alcohol use. He reports current drug use. Drug: Marijuana. Allergies[1] Physical Exam No data found. Wt Readings from Last 3 Encounters: 09/05/24 (!) 262 lb 9.6 oz (119.1 kg) 09/02/24 (!) 258 lb (117 kg) 08/17/24 (!) 242 lb 11.2 oz (110.1 kg) Date 09/05/24 07 - 09/06/24 0659 09/06/24 0700 - 09/07/24 0659 Shift 7392-4142 5031-9681 5717-7876 24 Hour Total 2151-2188 3269-0432 2760-9518 24 Hour Total INTAKE P.O. 600 250 850 P.O. 600 250 850 Shift Total(mL/kg) 600(5) 250(2.1) 850(7.1) OUTPUT Urine(mL/kg/hr) 340(0.4) 645(0.7) 985 Urine 340 645 985 Urine Occurrence 3 x 1 x 10 x 14 x Stool Stool Occurrence 3 x 3 x 10 x 16 x Shift Total(mL/kg) 340(2.9) 645(5.4) 985(8.3) Weight (kg) 119.1 119.1 119.1 119.1 119.1 119.1 119.1 119.1 General appearance: Chronically ill, icteric HEENT: EOMi, conjunctiva nl, sclera non-icteric Lungs: No RD, CTA b/l Heart: RRR, no audible murmurs Abdomen: Firm, NT, distended, +BS Extremities:leg edema + Psych: good eye contact, normal affect Neuro: AAOx3, gross motor intact Laboratory Data and Imaging Recent Labs 09/04/24 0522 09/05/24 0724 09/06/24 0430 WBC 9.6 4.6 4.3 HGB 8.5* 7.6* 8.4* HCT 23.1* 21.1* 22.8* MCV 98.6 99.7 99.9 PLT 41* 37* 41* Recent Labs 09/04/24 0522 09/04/24 1621 09/05/24 0724 09/06/24 0430 NA 132* 134 134 137 K 3.7 3.5 3.6 3.1* CL 103 104 107 109 CO2 18* 20* 19* 17* BUN 41* 43* 42* 40* CREATININE 3.21* 3.31* 2.92* 2.70* GLUCOSE 162* 142* 108* 122* CALCIUM 8.5* 9.1 8.6 8.6 MG 2.4 2.4 2.0 1.8 PHOS 2.2 -- 2.1 2.0* ANIONGAP 11 10 8 11 ALBUMIN 3.2* -- 3.3* 3.7 3.7 Recent Labs 09/04/24 0522 09/04/24 1621 09/05/24 0724 09/06/24 0430 CALCIUM 8.5* 9.1 8.6 8.6 PHOS 2.2 -- 2.1 2.0* No results found for: IRON , TIBC , FERRITIN No results found for: [id number] , FOLATE Lab Results Component Value Date COLORU Yellow 09/03/2024 CLARITYU Cloudy (A) 09/03/2024 PROTEINUA Trace (A) 09/03/2024 PHUR 6.5 09/03/2024 LABSPEC >1.035 (H) 09/03/2024 GLUCOSEU Negative 09/03/2024 BLOODU Negative 09/03/2024 LEUKOCYTESUR Negative 09/03/2024 NITRITE Negative 09/03/2024 BILIRUBINUR Small (A) 09/03/2024 UROBILINOGEN <2.0 09/03/2024 RBCUA 1 09/03/2024 WBCUA 1 09/03/2024 BACTERIA Occasional (A) 09/03/2024 Recent Labs 09/03/24 1521 NAUR <10 KUR 23.0 CLUR <15 No results found for: MICROALBUR , [id number] In addition to the above an extensive amount of complex data in the patients lab and chart were reviewed. Medications: Home Medications: Home Medications Medication Sig Taking? Last Dose folic acid (FOLVITE) 1 MG tablet Take 1 tablet (1 mg total) by mouth daily. Yes 09/04/2024 lactulose (CHRONULAC) 10 gram/15 mL solution Take 30 mLs (20 g total) by mouth 3 times a day as needed (goal 2-3 bowel movements a day). Yes 09/04/2024 levothyroxine (SYNTHROID) 75 MCG tablet Take 1 tablet (75 mcg total) by mouth every morning before breakfast. Yes 09/04/2024 pantoprazole (PROTONIX) 40 MG tablet Take 1 tablet (40 mg total) by mouth every morning before breakfast. Yes 09/04/2024 potassium chloride (KLOR-CON M20) 20 MEQ tablet Take 2 tablets (40 mEq total) by mouth daily. Yes 09/04/2024 rifAXIMin (XIFAXAN) 550 mg Tab tablet Take 1 tablet (550 mg total) by mouth 2 times a day. Yes 09/04/2024 sodium bicarbonate 650 MG tablet Take 2 tablets (1,300 mg total) by mouth 3 times a day. Yes 09/04/2024 thiamine HCl (VITAMIN B-1) 100 MG tablet Take 1 tablet (100 mg total) by mouth daily. Yes 09/04/2024 traMADoL (ULTRAM) 50 mg tablet Take 1 tablet (50 mg total) by mouth every 12 hours as needed for Pain (Pain). Yes 09/04/2024 zinc sulfate (ZINCATE) 50 mg zinc (220 mg) capsule Take 1 capsule (220 mg total) by mouth daily. Yes 09/04/2024 cholestyramine-aspartame (PREVALITE) 4 gram Powd bulk Mix one scoop with 4-6 ounces of water and drink by mouth daily. Unknown Inpatient Meds: [START ON 09/07/2024] albumin human 25% (12.5 g/ 50 mL) 12.5 g Intravenous Q30 Min cefTRIAXone (ROCEPHIN) IVPB 2 g Intravenous Daily 0900 cholestyramine 4 g Oral Daily 0900 folic acid 1 mg Oral Daily 0900 [Held by provider] heparin 5,000 Units Subcutaneous 3 times per day lactulose 20 g Oral QID levothyroxine 75 mcg Oral QAM AC pantoprazole 40 mg Oral QAM AC phytonadione (vitamin K1) (AQUA-MEPHYTON) 10 mg in sodium chloride 0.9 % 50 mL IVPB 10 mg Intravenous Daily 0900 rifAXIMin 550 mg Oral BID sodium bicarbonate 1,300 mg Oral TID ursodioL 300 mg Oral BID zinc sulfate 220 mg Oral Daily 0900 Continuous Infusions: PRN medications: acetaminophen, lactulose, lactulose, melatonin, ondansetron, oxyCODONE OR oxyCODONE Diagnostic Imaging Reviewed in EMR. The note reviewed and copied forward (with edits) from a note written by me on 09/04/24. I have reviewed and updated the history, physical exam, data, assessment, and plan of the note so that it reflects my evaluation and management of the patient. [1] Allergies Allergen Reactions Adhesive Itching and Rash Tegaderm adhesive on Ivs, pt states its tolerable Duloxetine Other (See Comments) Became Manic Cosigned by Aneudy Simons at 09/06/2024 8:23 PM EDT Associated attestation - Aneudy Simons - 09/06/2024 8:23 PM EDT Patient is seen and examined by me with Fellow and team on 09/06/2024 Medicines and Data reviewed Interim notes in chart reviewed. I agree in full with the assessment and plan as outlined in the fellows note. My additional comments are Seen in the room, noted significant diarrhea with 16x BMs yesterday and 3 BMs already this morning NADIYA - due to HRS presumed. - seem to respond to albumin treatment. Creatinine has slightly improved today compared to yesterday and now non-oliguric with ~1 liter UOP. - recommend continuing with IV albumin therapy to keep volume status acceptable while having diarrhea. - giving bicarb tabs for NAGMA related to diarrhea. Use midodrine and octreotide for MAP goals of ~70-75. - no indication for PROCESSING SPECIALIST at this time ANEUDY SIMONS 09/06/2024 This note was completely edited, written and [...] evaluation and management for this patient. * Chelsy Piper PharmD - 09/05/2024 2:17 PM EDT Clinical Pharmacy Progress Note: Pharmacotherapy Stewardship Encounter Date: 09/05/2024 Attending Physician: Kathie Sanchez MD Subjective: Julien Anderson is a(n) 39 y.o. male presenting to the hospital for Alcoholic cirrhosis of liver without ascites (CMS-HCC). Assessment/Plan: A comprehensive medication evaluation was conducted through the [facility] electronic medical record review on interprofessional rounds for drug-drug, drug-disease, and drug-nutrition interactions appropriate therapeutic indications; dosing; monitoring (e.g., serum concentrations; clinical response; safety/efficacy); and route(s) of administration. Opportunities Therapy optimization: Recommend proceeding with albumin therapy today given the SBP diagnosis. Patient is due for the second indicated albumin dose in the setting of SBP at a dose of 1g/kg. Therapy optimization: clarifying need for midodrine with primary/hepatology teams given current blood pressures/indication. Thank you for allowing me to participate in the care of Julien Anderson as a part of the [facility] Team. Chelsy Piper PharmD, [facility] Clinical Gas Meter Checker - Internal Medicine Preferred Contact: [facility] Secured Chat 09/05/2024 2:17 PM * Gee May MD - 09/05/2024 8:07 AM EDT Images from the original note were not included. Department of Internal Medicine Nephrology & Hypertension Progress Note Patient: uJlien Anderson Date of Admit: 09/03/2024 Referring physician: Kathie Sanchez MD Assessment: Renal Function: Cr: 3.31 Bun: 43 on 09/04/2024 Baseline Scr 1-1.2 mg/dL Recurrent admission in recent past with NADIYA in the context of decompensated cirrhosis. Most recently was admitted between 08/12-08/19. Managed on the lines of HRS. Discharge creatinine 2.7. Had LVP on 08/27/24. Now uptrending creatinine. UA-6.5/> 1.035/trace/negative/NAD Urine electrolytes- <10/23/<15 Ultrasound retroperitoneum 09/03/2024 Right kidney: 11.3 cm in length. Normal parenchymal echogenicity. No hydronephrosis. Nonobstructingright renal calculi are better seen on the recent CT Left kidney: 13 cm in length. Normal parenchymal echogenicity. No hydronephrosis. Recently described partially calcified left renal lesion is not well seen Received IV contrast on 09/03/2024 Electrolytes: Na: 134 K: 3.5 Cl: 104 Ma.4 Ca: 9.1 Phos: 2.2 Mild hyponatremia in the setting of decompensated liver disease and renal dysfunction Acid Base Status: Anion Gap: 10 Bicarb: 20 NAGMA of renal dysfunction CVS: BP: 139/65 Goal MAP > 75 On IV albumin + midodrine CKD-MBD: Ca: 9.1 PO4: 2.2 Alb: 3.2 PTH: No results found for requested labs within last 3600 days. on No results found for requested labs within last 3600 days. Vit D: No results found for requested labs within last 3600 days. on No results found for requestedlabs within last 3600 days. No current issues Anemia of CKD: Hgb 7.6 Hct 21.1 Plt 37 Iron No results found for requested labs within last 3600 days. on No results found for requested labs within last 3600 days. Ferritin No results found for requested labs within last 3600 days. on No results found for requested labs within last 3600 days. TIBC: No results found for requested labs within last 3600 days. on No results found for requested labs within last 3600 days. Haptoglobin: No results found for requested labs within last 3600 days. on No results found for requested labs within last 3600 days. LDH: No results found for requested labs within last 3600 days. on No results found for requested labs within last 3600 days. Consistent with anemia of chronic disease transfusion per primary Plan: Seen in room. Resting comfortably. On iv albumin. Made 975cc of urine. recommend continuing volume expansion with iv albumin.BUN/Cr- 42/2.92, down-trending. Continue with midodrine and consider adding octreotide. Thank you for allowing us to participate in this patient's care. Discussed with Consult Staff. Gee May Nephrology fellow Pager [phone] Chief Complaint Chief Complaint Patient presents with Abdominal Pain Reason for Consult Recurrent NADIYA in the setting of D/cirrhosis History of Present Illness 39/M PMH of EToH related D cirrhosis (EV, HRS, ascites, HCV), RCC s/p ablation (left side). Recently wasdischarged from hospital on 08/19/2024, after being managed for NADIYA/HRS. Now presented with pain abdomen following LVP on 08/27. On evaluation found to have worsened kidney function. Nephrology consulted for assistance in management. Interval History Seen in room. Resting comfortably. Stable vitals. Histories he has a past medical history of Alcoholic cirrhosis of liver (CMS-HCC), Alcoholic hepatitis, Esophageal varices (CMS-HCC), Hepatorenal syndrome (CMS- HCC), Hypertension, Other hyperlipidemia (07/26/2024), Renal cell carcinoma (CMS-HCC), Thrombocytopenia (CMS-HCC), and Thyroid disease. he has no past surgical history on file. he family history is not on file. he reports that he has quit smoking. His smoking use included cigarettes. He uses smokeless tobacco. He reports current alcohol use. He reports current drug use. Drug: Marijuana. Allergies[1] Physical Exam Patient Vitals for the past 4 hrs: BP Temp Temp src Pulse Resp SpO2 Weight 09/05/24 0713 139/65 97.6 ??F (36.4 ??C) Oral 84 20 100 % -- 09/05/24 0608 113/61 98.4 ??F (36.9 ??C) Oral 90 20 97 % (!) 262 lb 9.6 oz (119.1 kg) Wt Readings from Last 3 Encounters: 09/05/24 (!) 262 lb 9.6 oz (119.1 kg) 09/02/24 (!) 258 lb (117 kg) 08/17/24 (!) 242 lb 11.2 oz (110.1 kg) Intake/Output Summary (Last 24 hours) at 09/05/2024 0807 Last data filed at 09/05/2024 0216 Gross per 24 hour Intake 454.6 ml Output 975 ml Net -520.4 ml General appearance: Chronically ill, icteric HEENT: EOMi, conjunctiva nl, sclera non-icteric Lungs: No RD, CTA b/l Heart: RRR, no audible murmurs Abdomen: Firm, NT, distended, +BS Extremities:leg edema + Psych: good eye contact, normal affect Neuro: AAOx3, gross motor intact Laboratory Data and Imaging Recent Labs 09/03/24 1726 09/04/24 0522 09/05/24 0724 WBC 9.9 9.6 4.6 HGB 8.4* 8.5* 7.6* HCT 23.1* 23.1* 21.1* MCV 98.3 98.6 99.7 PLT 42* 41* 37* Recent Labs 09/02/24 1700 09/02/24 1700 09/03/24 0529 09/03/24 1049 09/03/24 1343 09/04/24 0220 09/04/24 0522 09/04/24 1621 NA 136 -- 133 133 < > 133 132* 134 K 2.7* -- 2.6* 2.8* < > 3.8 3.7 3.5 CL 101 -- 100 101 < > 103 103 104 CO2 21 -- 20* 19* < > 18* 18* 20* BUN 39* -- 38* 39* < > 41* 41* 43* CREATININE 2.93* -- 3.01* 3.26* < > 3.36* 3.21* 3.31* GLUCOSE 137* -- 133* 84 < > 145* 162* 142* CALCIUM 8.5* -- 8.9 8.6 < > 9.0 8.5* 9.1 MG -- < > 2.0 1.8 < > 2.5 2.4 2.4 PHOS -- -- -- 2.5 -- -- 2.2 -- ANIONGAP 14 -- 13 13 < > 12 11 10 ALBUMIN 3.3* 3.3* -- 3.4* -- -- -- 3.2* -- < > = values in this interval not displayed. Recent Labs 09/03/24 1049 09/03/24 1343 09/04/24 0220 09/04/24 0522 09/04/24 1621 CALCIUM 8.6 < > 9.0 8.5* 9.1 PHOS 2.5 -- -- 2.2 -- < > = values in this interval not displayed. No results found for: IRON , TIBC , FERRITIN No results found for: [id number] , FOLATE Lab Results Component Value Date COLORU Yellow 09/03/2024 CLARITYU Cloudy (A) 09/03/2024 PROTEINUA Trace (A) 09/03/2024 PHUR 6.5 09/03/2024 LABSPEC >1.035 (H) 09/03/2024 GLUCOSEU Negative 09/03/2024 BLOODU Negative 09/03/2024 LEUKOCYTESUR Negative 09/03/2024 NITRITE Negative 09/03/2024 BILIRUBINUR Small (A) 09/03/2024 UROBILINOGEN <2.0 09/03/2024 RBCUA 1 09/03/2024 WBCUA 1 09/03/2024 BACTERIA Occasional (A) 09/03/2024 Recent Labs 09/03/24 1521 NAUR <10 KUR 23.0 CLUR <15 No results found for: MICROALBUR , [id number] In addition to the above an extensive amount of complex data in the patients lab and chart were reviewed. Medications: Home Medications: Home Medications Medication Sig Taking? Last Dose folic acid (FOLVITE) 1 MG tablet Take 1 tablet (1 mg total) by mouth daily. Yes 09/04/2024 lactulose (CHRONULAC) 10 gram/15 mL solution Take 30 mLs (20 g total) by mouth 3 times a day as needed (goal 2-3 bowel movements a day). Yes 09/04/2024 levothyroxine (SYNTHROID) 75 MCG tablet Take 1 tablet (75 mcg total) by mouth every morning before breakfast. Yes 09/04/2024 pantoprazole (PROTONIX) 40 MG tablet Take 1 tablet (40 mg total) by mouth every morning before breakfast. Yes 09/04/2024 potassium chloride (KLOR-CON M20) 20 MEQ tablet Take 2 tablets (40 mEq total) by mouth daily. Yes 09/04/2024 rifAXIMin (XIFAXAN) 550 mg Tab tablet Take 1 tablet (550 mg total) by mouth 2 times a day. Yes 09/04/2024 sodium bicarbonate 650 MG tablet Take 2 tablets (1,300 mg total) by mouth 3 times a day. Yes 09/04/2024 thiamine HCl (VITAMIN B-1) 100 MG tablet Take 1 tablet (100 mg total) by mouth daily. Yes 09/04/2024 traMADoL (ULTRAM) 50 mg tablet Take 1 tablet (50 mg total) by mouth every 12 hours as needed for Pain (Pain). Yes 09/04/2024 zinc sulfate (ZINCATE) 50 mg zinc (220 mg) capsule Take 1 capsule (220 mg total) by mouth daily. Yes 09/04/2024 cholestyramine-aspartame (PREVALITE) 4 gram Powd bulk Mix one scoop with 4-6 ounces of water and drink by mouth daily. Unknown Inpatient Meds: albumin human 25% (12.5 g/ 50 mL) 12.5 g Intravenous Q30 Min cefTRIAXone (ROCEPHIN) IVPB 2 g Intravenous Daily 0900 cholestyramine 4 g Oral Daily 0900 folic acid 1 mg Oral Daily 0900 [Held by provider] heparin 5,000 Units Subcutaneous 3 times per day lactulose 20 g Oral QID levothyroxine 75 mcg Oral QAM AC midodrine 15 mg Oral TID pantoprazole 40 mg Oral QAM AC phytonadione (vitamin K1) (AQUA-MEPHYTON) 10 mg in sodium chloride 0.9 % 50 mL IVPB 10 mg Intravenous Daily 0900 rifAXIMin 550 mg Oral BID sodium bicarbonate 1,300 mg Oral TID zinc sulfate 220 mg Oral Daily 0900 Continuous Infusions: PRN medications: acetaminophen, lactulose, lactulose, ondansetron, oxyCODONE OR oxyCODONE Diagnostic Imaging Reviewed in EMR. The note reviewed and copied forward (with edits) from a note written by me on 09/04/24. I have reviewed and updated the history, physical exam, data, assessment, and plan of the note so that it reflects my evaluation and management of the patient. [1] Allergies Allergen Reactions Adhesive Itching and Rash Tegaderm adhesive on Ivs, pt states its tolerable Duloxetine Other (See Comments) Became Manic Cosigned by Aneudy Simons at 09/05/2024 11:51 PM EDT Associated attestation - Aneudy Simons - 09/05/2024 11:51 PM EDT Patient is seen and examined by me with Fellow and team on 09/05/2024 Medicines and Data reviewed Interim notes in chart reviewed. I agree in full with the assessment and plan as outlined in the fellows note. My additional comments are NADIYA - due to HRS presumed. - seem to respond to albumin treatment. Creatinine has improved today compared to yesterday and nownon-oliguric with ~1 liter UOP. - recommend continuing with IV albumin therapy. Use midodrine and octreotide for MAP goals of ~70-75. - no indication for PROCESSING SPECIALIST at this time ANEUDY SIMONS 09/05/2024 This note was completely edited, written and [...] evaluation and management for this patient. * Azalea Hughes DO - 09/05/2024 7:56 AM EDT Hospital Medicine Progress Note [facility] // [facility] Chief Concern / Reason for Follow-Up Alcoholic cirrhosis of liver without ascites (CMS-HCC) Interval History and ROS NAEO. Patient reports initially his abdominal pain had improved after the para yesterday. However, this morning reports he began to feel very itchy all over, his throat also felt itchy and around that time states his abdominal pain began to return. Reports during the episode, he felt nauseous and abit anxious. Did not vomit, remained HDS. At time of evaluation, patient still reports feeling itchy all over and some abdominal pain. Reports 5-7 bowel movements yesterday. Denies black or tarry stools, no blood in the stool. Medications Scheduled Meds: [START ON 09/07/2024] albumin human 25% (12.5 g/ 50 mL) 12.5 g Intravenous Q30 Min cefTRIAXone (ROCEPHIN) IVPB 2 g Intravenous Daily 0900 cholestyramine 4 g Oral Daily 0900 folic acid 1 mg Oral Daily 0900 [Held by provider] heparin 5,000 Units Subcutaneous 3 times per day lactulose 20 g Oral QID levothyroxine 75 mcg Oral QAM AC pantoprazole 40 mg Oral QAM AC phytonadione (vitamin K1) (AQUA-MEPHYTON) 10 mg in sodium chloride 0.9 % 50 mL IVPB 10 mg Intravenous Daily 0900 rifAXIMin 550 mg Oral BID sodium bicarbonate 1,300 mg Oral TID ursodioL 300 mg Oral BID zinc sulfate 220 mg Oral Daily 0900 Continuous Infusions: PRN Meds:acetaminophen, lactulose, lactulose, ondansetron, oxyCODONE OR oxyCODONE Vital Signs Temp: [97.6 ??F (36.4 ??C)-98.4 ??F (36.9 ??C)] 97.7 ??F (36.5 ??C) Heart Rate: [75-101] 80 Resp: [11-33] 18 BP: (109-139)/(54-77) 134/77 Intake/Output Summary (Last 24 hours) at 09/05/2024 1443 Last data filed at 09/05/2024 1351 Gross per 24 hour Intake 400 ml Output 1315 ml Net -915 ml Physical Exam GEN: middle aged man, overweight, sitting on the edge of the bed, chronically ill-appearing, NAD SKIN: warm, dry, jaundiced CV: RRR, no M/R/G, no JAVIER, JVP not visualized PULM: WOB wnl, CTAB GI/: soft abd, moderate distension, diffuse TTP no rebounding or guarding MSK: moving all extremities NERUO: AOx3, appropriately conversant, SILT in all extremities, no asterixis appreciated PSYCH: appropriate affect, pleasant, cooperative Laboratory Data Lab 09/05/24 0724 09/04/24 0522 09/03/24 1726 09/03/24 0529 WBC 4.6 9.6 9.9 10.8 HEMOGLOBIN 7.6* 8.5* 8.4* 11.9* HEMATOCRIT 21.1* 23.1* 23.1* 33.0* MEAN CORPUSCULAR VOLUME 99.7 98.6 98.3 98.6 PLATELETS 37* 41* 42* 71* Lab 09/05/24 0724 09/04/24 1621 09/04/24 0522 09/04/24 0220 SODIUM 134 134 132* 133 POTASSIUM 3.6 3.5 3.7 3.8 CHLORIDE 107 104 103 103 CO2 19* 20* 18* 18* BUN 42* 43* 41* 41* CREATININE 2.92* 3.31* 3.21* 3.36* GLUCOSE 108* 142* 162* 145* Lab 09/05/24 0724 09/04/24 1621 09/04/24 0509/04/24 0220 09/03/24 1343 09/03/24 1049 CALCIUM 8.6 9.1 8.5* 9.0 < > 8.6 MAGNESIUM 2.0 2.4 2.4 2.5 < > 1.8 PHOSPHORUS 2.1 -- 2.2 -- -- 2.5 < > = values in this interval not displayed. Lab 09/05/24 0724 09/04/24 0522 09/03/24 0535 09/02/24 1700 INR 2.5* 3.0* 2.0* 1.9* PROTHROMBIN TIME 27.8* 32.0* 22.9* 22.2* Lab 09/05/24 0724 09/04/24 0522 09/03/24 0529 09/02/24 1700 ALT 28 30 45 43 43 AST 41* 43* 73* 68* 68* ALK PHOS 89 75 139* 140* 140* BILIRUBIN TOTAL 23.0* 25.5* 32.5* 35.4* 35.4* BILIRUBIN DIRECT 15.57* 17.39* 19.8* 20.97* ALBUMIN 3.3* 3.2* 3.4* 3.3* 3.3* Lab 09/03/24 1028 COLOR, URINE Yellow CLARITY Cloudy* SPECIFIC GRAVITY, URINE >1.035* PH UA 6.5 PROTEIN UA Trace* GLUCOSE UA Negative KETONES UA Negative BILIRUBIN UA Small* BLOOD UA Negative NITRITE UA Negative UROBILINOGEN UA <2.0 LEUKOCYTES UA Negative RBC UA 1 WBC UA 1 BACTERIA Occasional* MUCUS Present* No results found for: BNP Lab Results Component Value Date TSH 0.92 09/03/2024 FREET4 0.74 09/03/2024 Test Results No results found. Assessment & Plan Julien Anderson is a 39 y.o. male on hospital day 2 (admitted09/03/2024). The medical issues being addressed in today's encounter are as follows: Assessment & Plan Alcoholic cirrhosis of liver without ascites (CMS-HCC) Due to EtOH, h/o EtOH hepatitis 06/2024 s/p prednisolone. MELD as below. Hepatology following. 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, patent hepatic arteries/veins, no focal hepatic lesions - HRS: first HRS at in 06/2024, last admission 08/12-08/29 improved w/ NE in MICU and albumin challenge, consulted renal, Cr improved with albumin challenge, will stop midodine given higher BP, stopped octreotide 200 mcg (received 3 doses 09/03-09/04), goal MAP>70 - Transplant: not eligible yet as last EtOH use 06/2024, peth pending - INR rise, likely related to cirrhosis but will give IV vit K 10mg daily x3d - Add ursodiol for itching MELD 3.0: 39 at 09/05/2024 7:24 AM Calculated from: Serum Creatinine: 2.92 mg/dL at 09/05/2024 7:24 AM Serum Sodium: 134 mmol/L at 09/05/2024 7:24 AM Total Bilirubin: 23 mg/dL at 09/05/2024 7:24 AM Serum Albumin: 3.3 g/dL at 09/05/2024 7:24 AM INR(ratio): 2.5 at 09/05/2024 7:24 AM Age at listing (hypothetical): 39 years Sex: Male at 09/05/2024 7:24 AM Abdominal pain Hyperacute onset while asleep 1hr prior to presentation. Initially c/f SBP, however cell counts unremarkable. Possibly due to worsening ascites, slightly improve s/p para in the ED though also received pain meds. Possible biliary colic given cholelithiasis, though pain diffuse. Low c/f cholecystitis given unremarkable RUQUS and LFTs relatively stable, mesenteric ischemia given lactate wnl. Acute hepatitis panel neg. - Trend lactates and abd exam - Cont Tylenol PRN (max 2g/day) - Start oxy 2.5/5mg PRN, hold if mental status worsens - Stop home tramadol Hypokalemia Acute on chronic. Possible due to continued GI losses. 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 Improving. - Replace PRN, space BMPs to BID NADIYA (acute kidney injury) ([facility] [place]) Admit Cr 3.01 (from 2.91 on 09/02, recent BL 2.7-3.0), peak Cr 3.52, now improving. UA appears concentrated, no c/f obstruction on CT A/P. Treated as HRS initially given severity of CKD and cirrhosis,de-escalating tx as above. Renal consulted. - Cont home sodium bicarb 1300mg TID - Albumin challenge and octreotide/midodrine as above - CTM bladder scans though may be inaccurate due to ascites, may require SC to r/o retention CKD (chronic kidney disease) stage 4, GFR 15-29 ml/min ([facility] [place]) As above for NADIYA Metabolic encephalopathy Likely multifactorial from HE and morphine I/s/o CKD. UA not c/f infxn. TSH, VBG, CXR unremarkable;deferred CTH. Improving. - BCx 09/03 NGTD - Cont CTX 09/03-09/04, consider d/c given BCx NGTD and low c/f infxn otherwise - Delirium precautions Alcohol use disorder Last use 06/2024 (admitted for EtOH hepatitis). - Pending Peth - Cont home folic acid - Cont empiric IV thiamine 200mg q8h x2d, then taper Metabolic acidosis with normal anion gap and bicarbonate losses As above for CKD. 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 Had cryoablation w/ IR 10/2022. 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 Follow-up outpt urology. GERD (gastroesophageal reflux disease) - Cont home PPI Hypothyroidism - Cont home levothyroxine Itching - Cont home cholestyramine Thrombocytopenia (CMS-HCC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 Hypertension No meds. Other hyperlipidemia No meds Anemia Hgb today 7.6, down from 11.9 earlier this admission. Denies melena or bloody stools. Did have parayesterday, but exam is not consistent with blood in abdomen. Suspect some element of dilution, though would not likely explain this large of a drop - CTM with daily CBC - Monitor for signs/symptoms of bleeding DIET: Diet/Nutrition Orders Diet low sodium Sodium 2 gm (low) Frequency: Effective Now Number of Occurrences: Until Specified Order Questions: Na restriction: Sodium 2 gm (low) Suicide/Behavior Risk Modification? No TLD: Patient Lines/Drains/Airways Status Active Line / PIV Line Name Placement date Placement time Site Days Peripheral IV 09/03/24 Anterior;Left;Proximal Forearm 09/03/24 0525 Forearm 2 Peripheral IV 09/03/24 Right Antecubital 09/03/24 0757 Antecubital 2 Peripheral IV 09/03/24 Anterior;Right Forearm 09/03/24 0557 Forearm 2 PPX: SQH, holding due to plt<50 CODE: Full Code DISPO: H3 AZALEA HUGHES DO Department of Internal Medicine 2:43 PM, 09/05/2024 Cosigned by Kathie Sanchez MD at 09/06/2024 7:07 AM EDT Associated attestation - Kathie Sanchez MD - 09/06/2024 7:07 AM EDT I saw and examined the patient on 09/05/24, and discussed the case with the resident and agree with the findings and plan as documented in the resident???s note. Pt endorsed itching, nausea, and shortness of breath this morning. He is concerned about an allergyto ceftriaxone. His SOB has since improved at the time of rounds. He reports well controlled abd pain that has since worsened and is 8/19 today. He has had regular, semi-formed, brown stools several times over the past 24 hours. No vomiting. VS WNL. Exam notable for jaundice. CV RRR, Pulm CTAB. No wheezing. Abd is soft, mildly distended. Tenderness to deep palpation of the epigastrum. No LE edema. #Itching, SOB, Nausea Do not suspect allergic reaction; suspect itching is due to bile salt deposition in skin- will add ursodiol. Cont cholestyramine. Suspect SOB was accompanied by anxiety. Nausea may have many etiologies. However, out of an abundance of caution, will trial benadryl- may also help with itching. Informed pt that we will monitor the timing of his ceftriaxone and symptoms moving forward. #SBP Day 3 ceftriaxone Cont albumin #NADIYA 2/ #HRS Improving Receiving albumin Stopping midodrine for elevated BP Renal following #Decompensated cirrhosis Cont lactulose, rifaximin Holding diuretics for NADIYA Appreciate hepatology recs #Acute anemia Of note, pt's adm hb was 11.9 --> 7.6 Suspect adm lab is hemoconcentration Suspect current lab is dilutional Actual Hb drop likely to be less than 4.5 g; no evidence of bleeding. Will monitor closely. Remainder of care per resident note. Medical Decision Making: Level 3 High established visit (>50 min): total time personally spent today, including [id number] with patient and/or caregiver(s), as well as [id number]-face time spent in care coordination, consultation, reviewing records, and documentation was 55 minutes. Kathie Sanchez MD [facility] 09/06/2024 7:07 AM * Leatha Ceja - 09/05/2024 7:12 AM EDT HEPATOLOGY CONSULT NOTE Consulted by: Kathie Sanchez MD Consult Question: Cirrhosis co-management History of Present Illness: Julien Anderson is a 39 y.o. male w/ PMHx EtOH cirrhosis d/b HE, jaundice, ascites, small non-bleedingEV, recent alcohol-associated hepatitis, RCC s/p treatment and c/f congenital renal disorder, HTN, HLD, HRS-CKD. He has had multiple admissions since June for decompensations, ACLF. MELD 43 In terms of cirrhosis history, long standing dx 2/2 to alcohol (see below): Patient was recently admitted 07/08/24-07/23/24 at with alcohol-associated hepatitis and ACLF in the setting of [...] ineligible d/t alcohol use. Then re-admitted to [facility] 07/25-07/29 after worsening outpatient labs (NADIYA). also noted ongoing/worsening jaundice. Repeat US without ascites. His last drink was prior to admission at . During prior admission, renal function improved with volume expansion, held octreotide and midodrine. [facility] Admission -08/19/24 with generalized weakness, worsening labs in outpatient setting, NADIYA on CKD, Tbili>60, hepatic encephalopathy. Required admission to MICU for pressor support. Renal function improved with albumin and pressors. Overnight, PMN from repeat para came back >250 consistent with SBP, has already been on abx. This morning reports pain and malaise have overall improved since admission. Main complaint today is itching. He has pruritus at baseline. Itching was present before am dose of Rocephin, but worsened after administration with accompanied flushing/warmth. Alert and oriented. Having >4 Bms yesterday. MELD 3.0: 39 at 09/05/2024 7:24 AM Calculated from: Serum Creatinine: 2.92 mg/dL at 09/05/2024 7:24 AM Serum Sodium: 134 mmol/L at 09/05/2024 7:24 AM Total Bilirubin: 23 mg/dL at 09/05/2024 7:24 AM Serum Albumin: 3.3 g/dL at 09/05/2024 7:24 AM INR(ratio): 2.5 at 09/05/2024 7:24 AM Age at listing (hypothetical): 39 years Sex: Male at 09/05/2024 7:24 AM Review of Systems All systems reviewed and negative except as listed above in HPI. Past Medical History: Diagnosis Date Alcoholic cirrhosis of liver (CMS-HCC) Alcoholic hepatitis Esophageal varices (CMS-HCC) Hepatorenal syndrome (CMS-HCC) Hypertension Other hyperlipidemia 07/26/2024 Renal cell carcinoma (CMS-HCC) Thrombocytopenia (CMS-HCC) Thyroid disease No past surgical history on file. No family history on file. Social History Tobacco Use Smoking status: Former Types: Cigarettes Smokeless tobacco: Current Substance Use Topics Alcohol use: Yes Comment: History of alcohol abuse, reports no use in 3 week- typically endorses use as 4 glasses ofwine a days Allergies[1] Scheduled Meds: albumin human 25% (12.5 g/ 50 mL) 12.5 g Intravenous Q30 Min cefTRIAXone (ROCEPHIN) IVPB 2 g Intravenous Daily 0900 cholestyramine 4 g Oral Daily 0900 folic acid 1 mg Oral Daily 0900 [Held by provider] heparin 5,000 Units Subcutaneous 3 times per day lactulose 20 g Oral QID levothyroxine 75 mcg Oral QAM AC midodrine 15 mg Oral TID pantoprazole 40 mg Oral QAM AC phytonadione (vitamin K1) (AQUA-MEPHYTON) 10 mg in sodium chloride 0.9 % 50 mL IVPB 10 mg Intravenous Daily 0900 rifAXIMin 550 mg Oral BID sodium bicarbonate 1,300 mg Oral TID ursodioL 300 mg Oral BID zinc sulfate 220 mg Oral Daily 0900 Continuous Infusions: PRN Meds: acetaminophen, lactulose, lactulose, ondansetron, oxyCODONE OR oxyCODONE Prior to Admission Meds: Home Medications Medication Sig Taking? Last Dose folic acid (FOLVITE) 1 MG tablet Take 1 tablet (1 mg total) by mouth daily. Yes 09/04/2024 lactulose (CHRONULAC) 10 gram/15 mL solution Take 30 mLs (20 g total) by mouth 3 times a day as needed (goal 2-3 bowel movements a day). Yes 09/04/2024 levothyroxine (SYNTHROID) 75 MCG tablet Take 1 tablet (75 mcg total) by mouth every morning before breakfast. Yes 09/04/2024 pantoprazole (PROTONIX) 40 MG tablet Take 1 tablet (40 mg total) by mouth every morning before breakfast. Yes 09/04/2024 potassium chloride (KLOR-CON M20) 20 MEQ tablet Take 2 tablets (40 mEq total) by mouth daily. Yes 09/04/2024 rifAXIMin (XIFAXAN) 550 mg Tab tablet Take 1 tablet (550 mg total) by mouth 2 times a day. Yes 09/04/2024 sodium bicarbonate 650 MG tablet Take 2 tablets (1,300 mg total) by mouth 3 times a day. Yes 09/04/2024 thiamine HCl (VITAMIN B-1) 100 MG tablet Take 1 tablet (100 mg total) by mouth daily. Yes 09/04/2024 traMADoL (ULTRAM) 50 mg tablet Take 1 tablet (50 mg total) by mouth every 12 hours as needed for Pain (Pain). Yes 09/04/2024 zinc sulfate (ZINCATE) 50 mg zinc (220 mg) capsule Take 1 capsule (220 mg total) by mouth daily. Yes 09/04/2024 cholestyramine-aspartame (PREVALITE) 4 gram Powd bulk Mix one scoop with 4-6 ounces of water and drink by mouth daily. Unknown Vitals: Temp: [97.5 ??F (36.4 ??C)-98.4 ??F (36.9 ??C)] 97.9 ??F (36.6 ??C) Heart Rate: [74-101] 101 Resp: [11-33] 20 BP: (109-139)/(54-74) 115/54 Intake/Output Summary (Last 24 hours) at 09/05/2024 1018 Last data filed at 09/05/2024 0216 Gross per 24 hour Intake 448.2 ml Output 975 ml Net -526.8 ml Physical Exam Gen: NAD, resting in bed HEENT: icteric sclera, EOMI CV: RRR Lungs: Non-labored breathing Abdomen: Soft, generalized mild abdominal tenderness. Skin: Jaundiced, diffuse erythematous flushing Ext: Trace LE edema Neuro: A&O x3. No focal deficits. No asterixis. Psych: appropriate mood and affect Laboratory and Imaging: Reviewed MELD 3.0: 39 at 09/05/2024 7:24 AM Calculated from: Serum Creatinine: 2.92 mg/dL at 09/05/2024 7:24 AM Serum Sodium: 134 mmol/L at 09/05/2024 7:24 AM Total Bilirubin: 23 mg/dL at 09/05/2024 7:24 AM Serum Albumin: 3.3 g/dL at 09/05/2024 7:24 AM INR(ratio): 2.5 at 09/05/2024 7:24 AM Age at listing (hypothetical): 39 years Sex: Male at 09/05/2024 7:24 AM Assessment: Julien Anderson is a 39 y.o. male with PMHx EtOH cirrhosis d/b HE, ascites, jaundice, EV, recent alcohol-associated hepatitis, hx of RCC s/p treatment and c/f congenital renal disorder, HTN, HLD, CKD4. Now with first time episode of SBP, apparent etiology of current decompensation and pain. Non-candidate for inpatient transplant evaluation. Labs have improved steadily this admission, likely with treatment of his now confirmed SBP. PLAN / RECOMMENDATIONS: #Decompensated EtOH cirrhosis #Jaundice - Daily MELD labs, urine sodium, MELD 43-->41 - T bili downtrending, 25.5-->23 - INR 3-->2.5, no bleeding, recommend Vitamin K 10mg IV x3d #SBP - Para 09/03 in ED with 1L off, no signs SBP. Repeat para 09/04 with 4L off and now with PMN>250, no organisms on Gram stain, culture pending. - Has already gotten CTX 2g x2 days, continue for a 7 day course. Will then transition to cipro 500mg daily indefinitely for ppx. - Has gotten 100g albumin x2 days. Would redose today 100g. - Repeat diagnostic para 48h vs Sunday to assess for improvement #HRS-CKD (previously type II HRS) - Cr downtrending, now at/near recent baseline - Continue midodrine 15 mg TID - continue albumin today as above - not a candidate for any diuretics at this time #Hepatic Encephalopathy - A&O x 3 - Continue lactulose target 3-4 BM daily and rifaximin 550mg BID #Esophageal varices with known GOV2 bleed - previously on BB did not tolerate due to hypotension - Would eventually need repeat EGD for surveillance #pruritus - Likely bile acid pruritus, possible drug rxn component with worsening after CTX but has gotten this on previous admissions - can continue cholestyramine, has been uncontrolled on 4g daily. Agree with adding ursodiol - Could consider naltrexone in future, could help with pruritus and AUD, but avoiding while on oxy #Pre pretransplant eval #AUD in early remission - History of AUD, sober since Jun 2024. PETH negative 08/19/24 - Not a candidate for inpatient transplant evaluation. Would require 12 weeks of chemical dependency tx outpatient to be eligible for transplant evaluation. Will meet with transplant social work teamafter discharge to discuss, had to miss appointment scheduled on day of admission - Ongoing discussions regarding goals of care, holding off on palliative consult. We will continue to follow along. Please reach out (preferably Epic Secure Chat) if there are any questions or concerns. If you have any questions, please contact the Liver fellow on-call. Assessment and plan discussed with Dr. Soto. Leatha Ceja, MS4 Hepatology [1] Allergies Allergen Reactions Adhesive Itching and Rash Tegaderm adhesive on Ivs, pt states its tolerable Duloxetine Other (See Comments) Became Manic Cosigned by Lino Soto MD at 09/05/2024 12:12 PM EDT Associated attestation - Lino Soto MD - 09/05/2024 12:12 PM EDT Attending Physician's Note: I was present with the medical student and have personally performed the physical exam and medical decision making. I have reviewed the medical student???s note and agree with their assessment and plan. 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 Initial testing negative for infection but repeat paracentesis confirmed SBP. Started on Ceftriaxone. Feeling better this Am alt irena thinks he might have had a skin reaction to Ceftriaxone. Kidney function improving PE Vitals: 04/25/25 0608 09/05/24 0713 09/05/24 0916 09/05/24 1000 BP: 113/61 139/65 115/54 115/54 BP Location: Left upper arm Right upper arm Right upper arm Patient Position: Sitting Sitting Sitting BP Cuff Size: Regular Pulse: 90 84 101 101 Resp: 20 20 20 20 Temp: 98.4 ??F (36.9 ??C) 97.6 ??F (36.4 ??C) 97.9 ??F (36.6 ??C) TempSrc: Oral Oral Oral SpO2: 97% 100% 100% Weight: (!) 262 lb 9.6 oz (119.1 kg) Height: Appears frail Sclera icteric Abdomen is distended, firm, mild roge-umbilical tenderness Alert and oriented times three, no asterixis Trace LE edema A&P 39 y.o. year old male with complex medical issues as detailed in HPI. Ceftriaxone for 5 days for SBP treatment. IV albumin for NADIYA. Supportive care. IV Vitamin K. Patient currently undergoing outpatient chemical dependency treatment (4 weeks complete of planned 12 weeks). Once this is complete, will be seen in transplant clinic for medical testing. This note was completely edited, written and [...] current evaluation and management for this patient. Lino Soto MD GI and Hepatology Staff * Kiet Ramirez MD - 09/04/2024 8:00 PM EDT Update Note Cell count from 4L para today w/ PMN>250, c/w SBP. Will give another 100g albumin tomorrow and cont CTX as pt is clinically improving. Will need 2' ppx after tx. Discussed with hepatology. Pt's presenting h/o severe hyperacute abd pain is c/w SBP. Dx para yesterday ~3hr after acute onsetof symptoms likely negative for SBP due to a lag in the inflammatory cell response. * Brittany Horne, PT - 09/04/2024 3:23 PM EDT Physical Therapy Initial Assessment and Discharge Name: Julien Anderson : 1985 Attending Physician: Kiet Ramirez MD Admission Diagnosis: No admission diagnoses are documented for this encounter. Date: 09/04/2024 Room: [address] Reviewed Pertinent hospital course: Yes Hospital Course PT/OT: 39 y/o M presents to ED on 09/03 w/ worsening abdominal pain since paracentesis and SOB. Paracentesis completed in ED. CT Abd/pelv: Cirrhotic liver morphology w/ sequela of portal hypertension. CXR: (-). US abd: Cirrhosis and stigmata of portal hypertension including ascites. Relevant PMH : Alcoholic cirrhosis, esophageal varices, hepatorenal syndrome, HTN, HLD, hypothyroidism Precautions: none Activity Level: Activity as tolerated Assist: Co-evaluation performed Assessment Assessment: No acute impairments Prognosis: Good Patient sat EOB upon arrival, agreeable to therapy evaluation. He tolerated the session well. The patient demonstrated sit to stand with independence. He ambulated in the griggs with supervision progressing to independence. He reports no further concerns with functional mobility or need for additional equipment. No acute PT goals identified, therefore no goals set. Discharging patient from inpatient PT services at this time. Please re-consult if any new needs arise. Recommendation Recommendation: No skilled PT Equipment Recommended: None AM-PAC 6 Clicks Basic Mobility Inpatient Short Form: PT 6 Clicks Score: 24 Mobility Recommendations for Staff Patient ability: Patient ambulates in hallway, Patient ambulates in room/ to bathroom Assist needed: with supervision Home Living/Prior Function Patient able to provide accurate information at this time: Yes Lives With: Family Assistance available: 24 hour assistance Home Entry: No steps to enter Home Layout: One level Bathroom Shower/Tub: Tub/shower unit Bathroom Toilet: Raised Bathroom Equipment: Shower chair Home Equipment: None Prior Function Functional Mobility: Independent ( no assistive device) Receives Help From: None needed prior to admission ADL Assistance: Independent IADL Assistance: Independent Vocation: On disability Pain Pain Score: 8 Pain Location: Neck Pain Descriptors: Discomfort Pain Intervention(s): Repositioned;Ambulation/increased activity Therapist reported pain to: RN Vision Hearing/Vision/Perception Hearing: No hearing deficits noted Baseline Vision: No visual deficits Overall Vision/ Perception: Within Functional Limits Cognition Overall Cognitive Status: Within Functional Limits Cognitive Assessment: Arousal/ Alertness;Orientation Level;Behavior;Following Commands;Safety Judgment;Insight;Memory;Communication Arousal/Alertness: Alert Orientation Level: Oriented X4 Behavior: Appropriate;Cooperative Following Commands: Follows all commands and directions without difficulty Safety Judgment: Good awareness of safety precautions Insight: Demonstrated intact insight into limitation and abilities to complete ADL's safely Neuromuscular Overall Sensation: Within Functional Limits (pt states numbness in toes at baseline) Upper Extremity UE Assessment: Defer to OT evaluation for formal assessment Lower Extremity Lower Extremity LE Assessment: Strength WFL (at least 3+/5) as observed during functional activity;ROM grossly WFL;Tone normal Functional Mobility Bed Mobility Supine to Sit: (Pt sat EOB upon arrival.) Sit to Supine: (Pt sat on toilet at the end of the session. present. RN aware.) Transfers Sit to Stand: Independent Stand to Sit: Independent Gait Distance (in feet): 50' + 10' Level of assistance: Supervision;Independent (supervision progressing to independent) Assistive Device: None Gait Characteristics: Steady;R decreased step length;L decreased step length;decreased michelle;No LOB Balance Sitting - Static: Independent Sitting-Dynamic: Independent Standing-Static: Independent Standing-Dynamic: Supervision;Independent (supervision progressing to independent) Gait belt used: Yes Position after Therapy/Safety Handoff Position after treatment and safety handoff Position after therapy session: Other (Pt on toilet at the end of the session 2/2 not a fall risk, independent mobility, and spouse in room. RN aware.) Details: RN notified;Call light/ needs within reach;visitor present Alarms: Bed Alarms Status: Not needed-patient on [place] fall risk precautions with other interventions in place Goals Collaborated with: Patient Patient Stated Goal: to go home No PT goals established secondary to patient with no acute skilled PT needs. Patient stated goal(s)is/are to go home--addressed at time of eval. Discharge patient from inpatient PT services at this time. Patients and/or caregivers as well as practitioners mutually agreed upon the above goal(s)/plan. Patient/Family Education Educated patient on the role of physical therapy, goals, plan of care, importance of increased activity, discharge recommendations, transfer training, and gait training and fall prevention strategies, including need for supervision/ assistance with OOB activity and use of call light; patient verbali zed understanding and demonstrated understanding. Handout(s) issued: n/a. Plan Plan PT Frequency: Discharge from PT The plan of care and recommendations assesses the patient's and/or caregiver's readiness, willingness, and ability to provide or support functional mobility and ADL tasks as needed upon discharge. Patient to be discharged from inpatient PT caseload at this time as pt has no acute impairments requiring skilled PT intervention. Please re-consult if needs arise.; Time Start Time: 1312 Stop Time: 1325 Time Calculation (min): 13 min Charges $PT Evaluation Low Complex 20 Min: 1 Procedure Problem List Problem List[1] Past Medical History Past Medical History: Diagnosis Date Alcoholic cirrhosis of liver (CMS-HCC) Alcoholic hepatitis Esophageal varices (CMS-HCC) Hepatorenal syndrome (CMS-HCC) Hypertension Other hyperlipidemia 07/26/2024 Renal cell carcinoma (CMS-HCC) Thrombocytopenia (CMS-HCC) Thyroid disease Past Surgical History No past surgical history on file. [1] Patient Active Problem List Diagnosis Alcoholic cirrhosis of liver without ascites (CMS-HCC) NADIYA (acute kidney injury) (CMS-HCC) Alcohol use disorder Metabolic encephalopathy Hypertension Other hyperlipidemia Thrombocytopenia (CMS-HCC) Renal mass, left Abdominal pain Hypokalemia CKD (chronic kidney disease) stage 4, GFR 15-29 ml/min (CMS-HCC) Metabolic acidosis with normal anion gap and bicarbonate losses GERD (gastroesophageal reflux disease) Hypothyroidism Itching * Eulalio Nielsen OT - 09/04/2024 2:41 PM EDT Occupational Therapy Initial Assessment and Discharge Name: Julien Anderson : 1985 Attending Physician: Kiet Ramirez MD Admission Diagnosis: No admission diagnoses are documented for this encounter. Date: 09/04/2024 Room: [address] Reviewed Pertinent hospital course: Yes Hospital Course PT/OT: 39 y/o M presents to ED on 09/03 w/ worsening abdominal pain since paracentesis and SOB. Paracentesis completed in ED. CT Abd/pelv: Cirrhotic liver morphology w/ sequela of portal hypertension. CXR: (-). US abd: Cirrhosis and stigmata of portal hypertension including ascites. Relevant PMH : Alcoholic cirrhosis, esophageal varices, hepatorenal syndrome, HTN, HLD, hypothyroidism Precautions: none Activity Level: Activity as tolerated Assist: Co-evaluation performed Recommendation Recommendation: No skilled OT Equipment Recommendations: None Assessment Assessment: No impairments No acute skilled OT services needed. OT to sign off. Pt agreeable to discharge and educated to reach out to team to reinitiate services should needs change. Outcome Measures AM-PAC 6 Clicks Daily Activity Inpatient Short Form: OT 6 Clicks Score: 24 Home Living/Prior Function Patient able to provide accurate information at this time: Yes Lives With: Family Assistance available: 24 hour assistance Home Entry: No steps to enter Home Layout: One level Bathroom Shower/Tub: Tub/shower unit Bathroom Toilet: Raised Bathroom Equipment: Shower chair Home Equipment: None Prior Function Functional Mobility: Independent ( no assistive device) Receives Help From: None needed prior to admission ADL Assistance: Independent IADL Assistance: Independent Vocation: On disability Pain Pain Score: 8 Pain Location: Neck Therapist reported pain to: RN Cognition Orientation Level: Oriented X4 Vision Hearing: No hearing deficits noted Baseline [...] observed during functional activites Neuromuscular Overall Sensation: Within Functional Limits (pt states numbness in toes at baseline) Functional Mobility Bed Mobility Supine to Sit: (seated EOB upon arrival) Transfers Sit to Stand: Independent Stand to Sit: Independent Toilet Transfers: Independent Functional Mobility: Supervision;Independent (spv progressing to ind; completed short community distance) Balance Sitting - Static: Independent Sitting-Dynamic: Independent Standing-Dynamic: Independent Gait belt used: Yes ADL Toileting: Independent Location Assessed Toileting: Toilet Position after Treatment/Safety Handoff Position after therapy session: Other Additional Comments: pt ended session on toilet 2/2 not a fall risk, independent mobility, and spouse in room Details: RN notified;visitor present;Call light/ needs within reach Alarms: Bed Alarms Status: Not needed-patient on [place] fall risk precautions with other interventions in place Plan Plan Progress: Discontinue OT OT Frequency: Discharge from OT The plan of care and recommendations assesses the patient's and/or caregiver's readiness, willingness, and ability to provide or support functional mobility and ADL tasks as needed upon discharge. Goals No OT goals established secondary to patient with no acute skilled OT needs. Patient/Family Education Educated patient on the role of occupational therapy and fall prevention strategies including use of call light. patient verbalized understanding. OT Time Start Time: 1312 Stop Time: 1325 Time Calculation (min): 13 min OT Charges $OT Evaluation Low Complex 30 Min: 1 Procedure Problem List Problem List[1] Past Medical History Past Medical History: Diagnosis Date Alcoholic cirrhosis of liver (CMS-HCC) Alcoholic hepatitis Esophageal varices (CMS-HCC) Hepatorenal syndrome (CMS-HCC) Hypertension Other hyperlipidemia 07/26/2024 Renal cell carcinoma (CMS-HCC) Thrombocytopenia (CMS-HCC) Thyroid disease Past Surgical History No past surgical history on file. [1] Patient Active Problem List Diagnosis Alcoholic cirrhosis of liver without ascites (CMS-HCC) NADIYA (acute kidney injury) (CMS-HCC) Alcohol use disorder Metabolic encephalopathy Hypertension Other hyperlipidemia Thrombocytopenia (CMS-HCC) Renal mass, left Abdominal pain Hypokalemia CKD (chronic kidney disease) stage 4, GFR 15-29 ml/min (CMS-HCC) Metabolic acidosis with normal anion gap and bicarbonate losses GERD (gastroesophageal reflux disease) Hypothyroidism Itching * Kiet Ramirez MD - 09/04/2024 10:43 AM EDT Hospital Medicine Progress Note [facility] // [facility] Chief Concern / Reason for Follow-Up Alcoholic cirrhosis of liver without ascites (CMS-HCC) Interval History and ROS NAEO. Reports diffuse abd pain improved overnight but still present. Had at least 2 BMs yesterday, confusion/AMS improved today. Had some NUNN w/ going to the bathroom but no SOB at rest. No n/v. Medications Scheduled Meds: albumin human 25% (12.5 g/ 50 mL) 12.5 g Intravenous Q30 Min cholestyramine 4 g Oral Daily 0900 folic acid 1 mg Oral Daily 0900 heparin 5,000 Units Subcutaneous 3 times per day lactulose 20 g Oral QID levothyroxine 75 mcg Oral QAM AC midodrine 15 mg Oral TID octreotide acetate (SANDOSTATIN) SQ/IM injection 200 mcg Subcutaneous TID pantoprazole 40 mg Oral QAM AC rifAXIMin 550 mg Oral BID sodium bicarbonate 1,300 mg Oral TID thiamine (vitamin B1) IV orderable 200 mg Intravenous Q8H zinc sulfate 220 mg Oral Daily 0900 Continuous Infusions: PRN Meds:acetaminophen, lactulose, lactulose, ondansetron, [Held by provider] traMADoL Vital Signs Temp: [97.6 ??F (36.4 ??C)-98.6 ??F (37 ??C)] 97.6 ??F (36.4 ??C) Heart Rate: [75-118] 79 Resp: [10-23] 12 BP: (90-131)/(43-92) 119/57 Intake/Output Summary (Last 24 hours) at 09/04/2024 1023 Last data filed at 09/04/2024 0946 Gross per 24 hour Intake 2635.49 ml Output 250 ml Net 2385.49 ml Physical Exam GEN: middle aged man, overweight, sitting on the edge of the bed, chronically ill-appearing, NAD SKIN: warm, dry, jaundiced CV: RRR, no M/R/G, no JAVIER, JVP not visualized PULM: WOB wnl, CTAB GI/: soft abd, distended w/ fluid wave, diffuse TTP w/ rebound/guarding improved from yesterday MSK: moving all extremities NERUO: AOx3, appropriately conversant, SILT in all extremities, +asterixis very decreased from yesterday PSYCH: appropriate affect, pleasant, cooperative Laboratory Data Lab 09/04/24 0522 09/03/24 1726 09/03/24 0529 09/02/24 1700 WBC 9.6 9.9 10.8 10.4 HEMOGLOBIN 8.5* 8.4* 11.9* 11.1* HEMATOCRIT 23.1* 23.1* 33.0* 30.7* MEAN CORPUSCULAR VOLUME 98.6 98.3 98.6 97.9 PLATELETS 41* 42* 71* 73* Lab 09/04/24 0509/04/2421909/03/24214909/03/24 1816 SODIUM 132* 133 131* 132* POTASSIUM 3.7 3.8 4.2 4.1 CHLORIDE 103 103 102 100 CO2 18* 18* 17* 17* BUN 41* 41* 41* 40* CREATININE 3.21* 3.36* 3.44* 3.44* GLUCOSE 162* 145* 194* 115* Lab 09/04/2452109/04/2421909/03/24214909/03/24 1816 09/03/24 1343 09/03/24 1049 CALCIUM 8.5* 9.0 8.5* 9.0 < > 8.6 MAGNESIUM 2.4 2.5 2.5 2.6* < > 1.8 PHOSPHORUS 2.2 -- -- -- -- 2.5 < > = values in this interval not displayed. Lab 09/04/2452109/03/24 0535 09/02/24 1700 INR 3.0* 2.0* 1.9* PROTHROMBIN TIME 32.0* 22.9* 22.2* Lab 09/04/24 0509/03/24 0529 09/02/24 1700 ALT 30 45 43 43 AST 43* 73* 68* 68* ALK PHOS 75 139* 140* 140* BILIRUBIN TOTAL 25.5* 32.5* 35.4* 35.4* BILIRUBIN DIRECT 17.39* 19.8* 20.97* ALBUMIN 3.2* 3.4* 3.3* 3.3* Lab 09/03/24 1028 COLOR, URINE Yellow CLARITY Cloudy* SPECIFIC GRAVITY, URINE >1.035* PH UA 6.5 PROTEIN UA Trace* GLUCOSE UA Negative KETONES UA Negative BILIRUBIN UA Small* BLOOD UA Negative NITRITE UA Negative UROBILINOGEN UA <2.0 LEUKOCYTES UA Negative RBC UA 1 WBC UA 1 BACTERIA Occasional* MUCUS Present* No results found for: BNP Lab Results Component Value Date TSH 0.92 09/03/2024 FREET4 0.74 09/03/2024 Test Results X-ray Portable Chest Result Date: 09/03/2024 EXAM: XR PORTABLE CHEST INDICATION: Altered mental status, unspecified TECHNIQUE: 1 view of the chest. COMPARISON: 6 hours prior FINDINGS: Medical Devices: None. Heart and Mediastinum: Cardiomediastinal silhouette is unchanged. Lungs and Pleura: Hypoexpanded lungs with similar streaky left-sided predominant bibasilar atelectasis or scarring. No large pleural effusions or pneumothorax. Bones and soft tissues: Unchanged. IMPRESSION: No significant interval change. Report Verified by: Essence Lopez MD at 09/03/2024 2:13 PM EDT US Duplex Pad-Yjs-Giojucc Comp Result Date: 09/03/2024 EXAM: US ABDOMEN COMPLETE EXAM: US DUPLEX [id number] COMPLETE INDICATION: Evaluate for cholecystitis COMPARISON: 09/03/2024 TECHNIQUE: Grayscale imaging was performed for evaluation of the liver, gallbladder, common bile duct, pancreas, spleen, and kidneys; color and spectral (duplex) Doppler analysis of the hepatic vasculature was also performed. FINDINGS: Liver: Increased echogenicity ofthe liver with nodular contour. No focal hepatic lesions Biliary/CBD: 5 mm. No intra or extrahepatic ductal dilatation. Gallbladder: Cholelithiasis. No wall thickening or pericholecystic fluid. Sonogr aphic Mehta sign is negative Pancreas: Obscured by overlying bowel gas. Right kidney: 11.3 cm in length. Normal parenchymal echogenicity. No hydronephrosis. Nonobstructing right renal calculi are better seen on the recent CT Left kidney: 13 cm in length. Normal parenchymal echogenicity. No hydronephrosis. Recently described partially calcified left renal lesion is not well seen Spleen: 19.1 cm. Aorta and IVC: Aorta is mostly obscured by overlying bowel gas. The IVC is color doppler patent. Other: Ascites DOPPLER: Hepatic Veins: Duplex evaluation of the hepatic vasculature demonstrates normalflow in the right, middle and left hepatic veins. 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 Reversed flow in the main portal vein. Recannulized paraumbilical vein Hepatic Arteries: Right, main and left hepatic arteries demonstrate normal waveforms. Resistive Indices Main hepatic artery: 0.65-0.7 Right hepatic artery: 0.69-0.74 Left hepatic artery: 0.71-0.72 IMPRESSION: ABDOMEN Cirrhosis and stigmata of portal hypertension including ascites. No focal hepatic lesion. Cholelithiasis with no sonographic evidence of acute cholecystitis LIVER DOPPLER Reversedflow in the portal veins with cavernous transformation of the left portal vein Patent hepatic arteries and hepatic veins Report Verified by: Siomara Pantoja MD at 09/03/2024 11:01 AM EDT US Abdomen Complete Result Date: 09/03/2024 EXAM: US ABDOMEN COMPLETE EXAM: US DUPLEX [id number] COMPLETE INDICATION: Evaluate for cholecystitis COMPARISON: 09/03/2024 TECHNIQUE: Grayscale imaging was performed for evaluation of the liver, gallbladder, common bile duct, pancreas, spleen, and kidneys; color and spectral (duplex) Doppler analysis of the hepatic vasculature was also performed. FINDINGS: Liver: Increased echogenicity ofthe liver with nodular contour. No focal hepatic lesions Biliary/CBD: 5 mm. No intra or extrahepatic ductal dilatation. Gallbladder: Cholelithiasis. No wall thickening or pericholecystic fluid. Sonogr aphic Mehta sign is negative Pancreas: Obscured by overlying bowel gas. Right kidney: 11.3 cm in length. Normal parenchymal echogenicity. No hydronephrosis. Nonobstructing right renal calculi are better seen on the recent CT Left kidney: 13 cm in length. Normal parenchymal echogenicity. No hydronephrosis. Recently described partially calcified left renal lesion is not well seen Spleen: 19.1 cm. Aorta and IVC: Aorta is mostly obscured by overlying bowel gas. The IVC is color doppler patent. Other: Ascites DOPPLER: Hepatic Veins: Duplex evaluation of the hepatic vasculature demonstrates normalflow in the right, middle and left hepatic veins. 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 Reversed flow in the main portal vein. Recannulized paraumbilical vein Hepatic Arteries: Right, main and left hepatic arteries demonstrate normal waveforms. Resistive Indices Main hepatic artery: 0.65-0.7 Right hepatic artery: 0.69-0.74 Left hepatic artery: 0.71-0.72 IMPRESSION: ABDOMEN Cirrhosis and stigmata of portal hypertension including ascites. No focal hepatic lesion. Cholelithiasis with no sonographic evidence of acute cholecystitis LIVER DOPPLER Reversedflow in the portal veins with cavernous transformation of the left portal vein Patent hepatic arteries and hepatic veins Report Verified by: Siomara Pantoja MD at 09/03/2024 11:01 AM EDT Assessment & Plan Julien Anderson is a 39 y.o. male on hospital day 1 (admitted09/03/2024). The medical issues being addressed in today's encounter are as follows: Assessment & Plan Alcoholic cirrhosis of liver without ascites (CMS-HCC) Due to EtOH, h/o EtOH hepatitis 06/2024 s/p prednisolone. MELD as below. Hepatology following. - EV: EGD 07/29 w/ nonbleeding grade 1 and 2 varices, portal gastropathy w/ small spot of blood s/p APC - Ascites: para 08/27 for 4L, 09/03 1L; no diuretics due to h/o HRS and hypotension, 2g Na diet, consult IR for para (no more than 4L; likely will be tomorrow given INR rise, likely related to cirrhosis but will give IV vit K 10mg daily x3d) - SBP: no hx, hyperacute severe abd pain clinically c/f SBP but ED dx para w/ nucleated cells, s/p CTX in the ED and continued empirically today - HE: cont home lactulose/rifaximin/zinc, lactulose enemas PRN, goal at least 3 BM daily - HCC: check AFP; RUQUS w/ doppler 09/03 w/ reversed flow in the portal veins with 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, patent hepatic arteries/veins, no focal hepatic lesions - HRS: first HRS at in 06/2024, last admission 08/12-08/29 improved w/ NE in MICU and albumin challenge, consulted renal, cont albumin challenge 09/03-09/04, cont midodine 15 mg TID, stop octreotide 200mcg TID (received 3 doses 09/03-09/04), goal MAP>70 - Transplant: not eligible yet as last EtOH use 06/2024, peth pending MELD 3.0: 41 at 09/04/2024 5:22 AM Calculated from: Serum Creatinine: 3.21 mg/dL (Using max of 3 mg/dL) at 09/04/2024 5:22 AM Serum Sodium: 132 mmol/L at 09/04/2024 5:22 AM Total Bilirubin: 25.5 mg/dL at 09/04/2024 5:22 AM Serum Albumin: 3.2 g/dL at 09/04/2024 5:22 AM INR(ratio): 3 at 09/04/2024 5:22 AM Age at listing (hypothetical): 39 years Sex: Male at 09/04/2024 5:22 AM Abdominal pain Hyperacute onset while asleep 1hr prior to presentation. Initially c/f SBP, however cell counts unremarkable. Possibly due to worsening ascites, slightly improve s/p para in the ED though also received pain meds. Possible biliary colic given cholelithiasis, though pain diffuse. Low c/f cholecystitis given unremarkable RUQUS and LFTs relatively stable, mesenteric ischemia given lactate wnl. Acute hepatitis panel neg. - Trend lactates and abd exam - Cont Tylenol PRN (max 2g/day) - Start oxy 2.5/5mg PRN, hold if mental status worsens - Stop home tramadol Hypokalemia Acute on chronic. Possible due to continued GI losses. 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 Improving. - Replace PRN, space BMPs to BID NADIYA (acute kidney injury) ([facility] [place]) Admit Cr 3.01 (from 2.91 on 09/02, recent BL 2.7-3.0), peak Cr 3.52, now improving. UA appears concentrated, no c/f obstruction on CT A/P. Treated as HRS initially given severity of CKD and cirrhosis,de-escalating tx as above. Renal consulted. - Cont home sodium bicarb 1300mg TID - Albumin challenge and octreotide/midodrine as above - CTM bladder scans though may be inaccurate due to ascites, may require SC to r/o retention CKD (chronic kidney disease) stage 4, GFR 15-29 ml/min ([facility] [place]) As above for NADIYA Metabolic encephalopathy Likely multifactorial from HE and morphine I/s/o CKD. UA not c/f infxn. TSH, VBG, CXR unremarkable;deferred CTH. Improving. - BCx 09/03 NGTD - Cont CTX 09/03-09/04, consider d/c given BCx NGTD and low c/f infxn otherwise - Delirium precautions Alcohol use disorder Last use 06/2024 (admitted for EtOH hepatitis). - Pending Peth - Cont home folic acid - Cont empiric IV thiamine 200mg q8h x2d, then taper Metabolic acidosis with normal anion gap and bicarbonate losses As above for CKD. 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 Had cryoablation w/ IR 10/2022. 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 Follow-up outpt urology. GERD (gastroesophageal reflux disease) - Cont home PPI Hypothyroidism - Cont home levothyroxine Itching - Cont home cholestyramine Thrombocytopenia (CMS-HCC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 Hypertension No meds. Other hyperlipidemia No meds DIET: Diet/Nutrition Orders Diet low sodium Sodium 2 gm (low) Frequency: Effective Now Number of Occurrences: Until Specified Order Questions: Na restriction: Sodium 2 gm (low) Suicide/Behavior Risk Modification? No TLD: Patient Lines/Drains/Airways Status Active Line / PIV Line Name Placement date Placement time Site Days Peripheral IV 09/03/24 Anterior;Left;Proximal Forearm 09/03/24 0525 Forearm 1 Peripheral IV 09/03/24 Right Antecubital 09/03/24 0757 Antecubital 1 Peripheral IV 09/03/24 Anterior;Right Forearm 09/03/24 0557 Forearm 1 PPX: SQH, holding due to plt<50 CODE: Full Code DISPO: H4, downgrade to floor status Medical Decision Making: Acute or chronic illness that may pose threat to life or function Discussed with physician/SAWYER from another specialty or practice, other licensed professional (PT/OT/SHOULDER BONER/RT), or a non-medical community professional: hepatology Labs reviewed (1 pt each): CBC, BMP, LFTs High risk of complications or morbidity related to diagnostics or treatments The HPI, ROS, physical exam, test results, and assessment & plan were reviewed and copied forward (with edits) from a note written by myself or a same-practice partner on 09/03/24. I have updated the history, physical exam, data, assessment, and plan of the note so that it reflects my evaluationand management of the patient on 09/04/2024. KIET RAMIREZ MD Division of Hospital Medicine Department of Internal Medicine 10:23 AM, 09/04/2024 * Kiet Ramirez MD - 09/03/2024 1:50 PM EDT BP downtrending, awaiting albumin from pharmacy, will order 250mL IVF bolus. * Chelsy Piper PharmD - 09/03/2024 12:52 PM EDT Clinical Pharmacy Progress Note: Pharmacotherapy Stewardship Transitions of Care Patient's profile was comprehensively assessed and an active order for rifaximin (Xifaxan??) was noted. This was identified as a high cost medication. Fill history was reviewed and it was determined the patient is filling this medication without access issues. No further transitions of care needs identified at this time. Thank you, Chelsy Piper PharmD, [facility] Clinical Gas Meter Checker - Internal Medicine Preferred Contact: [employer] 09/03/2024 12:52 PM * Jarrod Alas MD - 09/03/2024 7:24 AM EDT [facility] ED Reassessment Note Julien Anderson is a 39 y.o. male who presented to the emergency department on 09/03/2024. This patientwas initially seen by an off-going provider and their care has been turned over to me. Please see the original provider's note for details regarding the initial history, physical exam and ED course. At the time of turnover the following steps in the patient's evaluation were pending: CBC and right upper quadrant ultrasound to evaluate for cholecystitis. Clinical Impression: 1. Cirrhosis with acute on chronic liver injury and abdominal pain concerning for spontaneous bacterial peritonitis. CT abdomen pelvis with nonspecific gallbladder wall thickening which may be secondary to ascites however cannot exclude cholecystitis. Will obtain formal right upper quadrant ultrasound. Patient significantly tachycardic to 123. Fluids being administered. Will obtain blood cultures andadd lactate to workup. Lactate within normal limits. Patient has generalized abdominal discomfort however no specific right upper quadrant tenderness to palpation and has a negative Mehta sign. CT abdomen pelvis without evidence of portal vein thrombus. Right upper quadrant ultrasound with duplex ordered to complete workup however unlikely to change disposition. Will discuss case with hospital medicine for admission. Jarrod Alas MD Emergency Medicine [facility] * Rommel Mccoy MD - 09/03/2024 5:46 AM EDT Brief Progress Note The patient Julien Anderson is acutely ill and requires cross-sectional imaging with intravenous contrast. The potential risk of clinically significant kidney injury as a consequence of contrast, ratherthan their underlying etiology, is outweighed by the very real potential benefit of discovering an actionable abnormality. My clinical judgment suggests that Julien Anderson is at higher risk of harm from delaying his diagnosis and subsequent therapy. ROMMEL MCCOY MD 09/03/2024 5:46 AM Cosigned by Ana Maria Ramey MD at 09/03/2024 6:48 AM EDT * Ana Maria Ramey MD - 09/03/2024 5:21 AM EDT ED Attending Attestation Note Date of service: 09/03/2024 This patient was seen by the resident physician. I have seen and examined the patient, agree with the workup, evaluation, management and diagnosis. The care plan has been discussed and I concur. My assessment reveals a 39 y.o. male with PMH of alcoholic cirrhosis d/b ascites, hepatic encephalopathy, non bleeding esophageal varices, acute alcohol hepatitis (06/2024) s/p prednisolone, and CKD who presents with abdominal pain. On exam patient is afebrile, HDS, and chronically ill in appearance. +Jaundice. Abdomen soft but distended with generalized tenderness. Paracentesis was performed by the resident and medical student under my supervision. documented in this encounter H&P Notes * Kiet Ramriez MD - 09/03/2024 10:15 AM EDT Hospital Medicine [facility] // [facility] Name: Julien Anderson Chief Concern Abd pain History of Present Illness Julien Anderson is an 39 y.o. male with decompensated EtOH cirrhosis (EV, HRS, ascites, HE), HTN, and CKD, who p/w abd pain x1hr. Recently admitted 08/12-08/19 for decompensated EtOH cirrhosis (HE resolved w/ lactulose/rifaximin; dx para w/o SBP), NADIYA (improved w/ albumin), and RTA (stopped topiramate). Took KCl 20 mEq daily for 4 days and ran out. Had telemed visit w/ PCP 08/21, OSH renal follow-up 08/25, and reports having a LVP for 4L on 08/27. Came into town for hepatology follow-up 09/02 and was in his USOH during the appt. However, he woke up around 4am this morning due to acute abdominal pain, prompting presentation to the hospital. Reports worsening abd distention since LVP. Having 2-6 BM daily, reports difficulty titrating lactulose. Noted to be confused in the ED after receiving medications (including morphine). Last EtOH use06/2024. No f/c, CP, SOB, cough, n/v, or changes in urination. In the ED, AF, HR 106, BP 148/77, satting well on RA. Labs notable for K 2.6, Cr 3.01 (from 2.91 on09/02, recent BL 2.7-3.0), Hb 11.9 (recent BL 10-12), Na 133, Tbili 32.5, INR 1.0, lactate 1.8, hs-trop 16 -> 14. CT A/P w/ mod/large ascites, heterogenous liver enhancement, cholelithiasis w/ mildGB wall thickening, partially calcified 3cm L renal lesion, R inguinal hernia. Diagnostic para done w/ albumin <1.5 and TP<3.0, cx sent. BCx sent. EKG w/ sinus tach. Given CTX, dilaudid, morphine, and 20mEq KCL IV. Admitted to medicine. Review of Systems As per HPI. Past Medical & Surgical History Past Medical History: Diagnosis Date Alcoholic cirrhosis of liver (CMS-HCC) Alcoholic hepatitis Esophageal varices (CMS-HCC) Hepatorenal syndrome (CMS-HCC) Hypertension Other hyperlipidemia 07/26/2024 Renal cell carcinoma (CMS-HCC) Thrombocytopenia (CMS-HCC) Thyroid disease No past surgical history on file. Family History No family history on file. Social History Social History[1] Living arrangements: with spouse, in a home Medications Home Medications Medication Sig Taking? Last Dose cholestyramine-aspartame (PREVALITE) 4 gram Powd bulk Mix one scoop with 4-6 ounces of water and drink by mouth daily. folic acid (FOLVITE) 1 MG tablet Take 1 tablet (1 mg total) by mouth daily. lactulose (CHRONULAC) 10 gram/15 mL solution Take 30 mLs (20 g total) by mouth 3 times a day as needed (goal 2-3 bowel movements a day). levothyroxine (SYNTHROID) 75 MCG tablet Take 1 tablet (75 mcg total) by mouth every morning before breakfast. pantoprazole (PROTONIX) 40 MG tablet Take 1 tablet (40 mg total) by mouth every morning before breakfast. potassium chloride (KLOR-CON M20) 20 MEQ tablet Take 2 tablets (40 mEq total) by mouth daily. rifAXIMin (XIFAXAN) 550 mg Tab tablet Take 1 tablet (550 mg total) by mouth 2 times a day. sodium bicarbonate 650 MG tablet Take 2 tablets (1,300 mg total) by mouth 3 times a day. thiamine HCl (VITAMIN B-1) 100 MG tablet Take 1 tablet (100 mg total) by mouth daily. traMADoL (ULTRAM) 50 mg tablet Take 1 tablet (50 mg total) by mouth every 12 hours as needed for Pain (Pain). zinc sulfate (ZINCATE) 50 mg zinc (220 mg) capsule Take 1 capsule (220 mg total) by mouth daily. Vital Signs Temp: [97.7 ??F (36.5 ??C)-98.9 ??F (37.2 ??C)] 98.9 ??F (37.2 ??C) Heart Rate: [96-118] 118 Resp: [9-20] 18 BP: (110-151)/(70-91) 110/70 Intake/Output Summary (Last 24 hours) at 09/03/2024 1127 Last data filed at 09/03/2024 0828 Gross per 24 hour Intake 194.56 ml Output -- Net 194.56 ml Physical Exam GEN: middle aged man, overweight, lying in bed, ill-appearing, NAD SKIN: warm, dry, jaundiced CV: RRR, no M/R/G, no JAVIER, JVP not visualized PULM: WOB wnl, CTAB GI/: soft abd, distended w/ fluid wave, diffuse TTP w/ rebound/guarding MSK: moving all extremities NERUO: AOx2, wakes to touch and needs to be repeatedly woken up, SILT in all extremities, +asterixis PSYCH: appropriate affect, pleasant, cooperative Laboratory Data Lab 09/03/24 0529 09/02/24 1700 WBC 10.8 10.4 HEMOGLOBIN 11.9* 11.1* HEMATOCRIT 33.0* 30.7* MEAN CORPUSCULAR VOLUME 98.6 97.9 PLATELETS 71* 73* Lab 09/03/24 0529 09/02/24 1700 SODIUM 133 136 POTASSIUM 2.6* 2.7* CHLORIDE 100 101 CO2 20* 21 BUN 38* 39* CREATININE 3.01* 2.93* GLUCOSE 133* 137* Lab 09/03/24 0529 09/02/24 1700 CALCIUM 8.9 8.5* MAGNESIUM 2.0 -- Lab 09/03/24 0535 09/02/24 1700 INR 2.0* 1.9* PROTHROMBIN TIME 22.9* 22.2* Lab 09/03/24 0529 09/02/24 1700 ALT 45 43 43 AST 73* 68* 68* ALK PHOS 139* 140* 140* BILIRUBIN TOTAL 32.5* 35.4* 35.4* BILIRUBIN DIRECT 19.8* 20.97* ALBUMIN 3.4* 3.3* 3.3* Invalid input(s): WBCCAST , GRANCAST No results found for: BNP No results found for: TSH , T3FREE , FREET4 Diagnostic Studies and MDM Documentation US Duplex [id number]-Pdq-Wuvcafh Comp Final Result IMPRESSION: ABDOMEN Cirrhosis and stigmata of portal hypertension including ascites. No focal hepatic lesion. 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 No focal hepatic lesion. 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 Approved by John iVllegas DO on 09/03/2024 6:19 AM EDT I have personally reviewed the images and I agree with this report. Report Verified by: Ian Veronica MD at 09/03/2024 6:[address] Abdomen and Pelvis With IV contrast Final Result IMPRESSION: 1. Cirrhotic liver morphology with sequela of portal hypertension. Portal vein is patent. 2. Liver is heterogeneous in enhancement, which is nonspecific but may be seen in setting of hepatitis. 3. Moderate to large volume intra-abdominal ascites. 4. Cholelithiasis with mild gallbladder wall thickening, which may be due to chronic hepatic dysfunction although acute cholecystitis cannot be definitively excluded recommend clinical correlation. 5. Partially calcified left renal lesion measuring up to 3 cm which per chart review has been previously cryoablated and biopsied with unclear pathology, which may reflect treated RCC versus complex renal cyst. No prior available for direct comparison. Recommend continued attention on follow-up versus comparison with outside priors if available. 6. Right testicle is herniated into a small to moderately sized right inguinal hernia. Approved by Alejandro Guajardo DO on 09/03/2024 6:37 AM EDT I have personally reviewed the images and I agree with this report. Report Verified by: Ian Veronica MD at 09/03/2024 6:46 AM EDT ECG: EKG personally reviewed: unchanged from previous tracings, normal sinus rhythm. Assessment & Plan 39 y.o. male, who on 09/03/2024 was admitted to the hospital for: Julien Anderson is an 39 y.o. male with decompensated EtOH cirrhosis (EV, HRS, ascites, HE), HTN, and CKD, who p/w abd pain x1hr. Assessment & Plan Alcoholic cirrhosis of liver without ascites (CMS-HCC) Due to EtOH, h/o EtOH hepatitis 06/2024 s/p prednisolone. MELD as below. Hepatology consulted. 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, patent hepatic arteries/veins, no focal hepatic lesions - HRS: reported h/o HRS at in 06/2024 though cannot find definitive documentation, responded to albumin challenge last admission 08/12-08/29, will albumin challenge again due to Cr uptrend, urine appears concentrated so hopefully will respond, ordered urine lytes - Transplant: not eligible yet as last EtOH use 06/2024 MELD 3.0: 38 at 09/03/2024 5:35 AM Calculated from: Serum Creatinine: 3.01 mg/dL (Using max of 3 mg/dL) at 09/03/2024 5:29 AM Serum Sodium: 133 mmol/L at 09/03/2024 5:29 AM Total Bilirubin: 32.5 mg/dL at 09/03/2024 5:29 AM Serum Albumin: 3.4 g/dL at 09/03/2024 5:29 AM INR(ratio): 2 at 09/03/2024 5:35 AM Age at listing (hypothetical): 39 years Sex: Male at 09/03/2024 5:35 AM Abdominal pain Hyperacute onset while asleep 1hr prior to presentation. Initially c/f SBP, however cell counts unremarkable. Possibly due to worsening ascites, slightly improve s/p para in the ED though also received pain meds. Possible biliary colic given cholelithiasis, though pain diffuse. Low c/f cholecystitis given unremarkable RUQUS and LFTs relatively stable, mesenteric ischemia given lactate wnl. - Trend lactates and abd exam, check acute hepatitis panel - Hold off on opioid pain medications for now due to AMS Hypokalemia Acute on chronic. Possible due to continued GI losses. 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 - Replace IV and PO, trend BMP q4h, urine lytes CKD (chronic kidney disease) stage 4, GFR 15-29 ml/min ([facility]) Admit Cr 3.01, 3.26 on repeat (from 2.91 on 09/02, recent BL 2.7-3.0). - Cont home sodium bicarb 1300mg TID - Albumin challenge given uptrending Cr Metabolic encephalopathy Likely multifactorial from HE and morphine I/s/o CKD. UA not c/f infxn. - Check TSH, VBG, CXR; defer CTH for now - Follow-up BCx 09/03 - Delirium precautions Alcohol use disorder Last use 06/2024 (admitted for EtOH hepatitis). - Pending Peth - Cont home folic acid - Start empiric IV thiamine 200mg q8h x2d Metabolic acidosis with normal anion gap and bicarbonate losses As above for CKD. 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 Had cryoablation w/ IR 10/2022. 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 Follow-up outpt urology. GERD (gastroesophageal reflux disease) - Cont home PPI Hypothyroidism - Cont home levothyroxine Itching - Cont home cholestyramine Thrombocytopenia ([facility]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 Hypertension No meds. Other hyperlipidemia No meds DIET: Diet/Nutrition Orders Diet NPO Frequency: Effective Now Number of Occurrences: Until Specified TLD: Patient Lines/Drains/Airways Status Active Line / PIV Line Name Placement date Placement time Site Days Peripheral IV 09/03/24 Anterior;Left;Proximal Forearm 09/03/24 0525 Forearm less than 1 Peripheral IV 09/03/24 Right Antecubital 09/03/24 0757 Antecubital less than 1 Peripheral IV 09/03/24 Anterior;Right Forearm 09/03/24 0557 Forearm less than 1 PPX: SQH CODE: Full Code full, confirmed w/ DISPO: H4 Prior to Admission Med Status: Medications confirmed and reconciled Medical Decision Making: Acute or chronic illness that may pose threat to life or function Discussed with physician/SAWYER from another specialty or practice, other licensed professional (PT/OT/SHOULDER BONER/RT), or a non-medical community professional: hepatology Labs reviewed (1 pt each): CBC, BMP, LFTs High risk of complications or morbidity related to diagnostics or treatments KIET RAMIREZ MD Division of Hospital Medicine Department of Internal Medicine 09/03/2024, 11:27 AM [1] Social History Tobacco Use Smoking status: Former Types: Cigarettes Smokeless tobacco: Current Substance Use Topics Alcohol use: Yes Comment: History of alcohol abuse, reports no use in 3 week- typically endorses use as 4 glasses ofwine a days Drug use: Yes Types: Marijuana * Rommel Mccoy MD - 09/03/2024 5:11 AM EDT [facility] ED Note Date of Service: 09/03/2024 Reason for Visit: Abdominal Pain Patient History HPI Julien Anderosn is a 39 y.o. male with a history of alcoholic cirrhosis, esophageal varices, hepatorenal syndrome, HTN, HLD, hypothyroidism who presents to the ED for evaluation of abdominal pain. Presents today with diffuse abdominal pain worsening throughout the night. First paracentesis last Sunday with worsening abdominal distention since. Takes lactulose consistently. Denies any infectious symptoms; afebrile, no cough, no nausea or vomiting, normal bowel movements and urination. Alsoreports shortness of breath without chest pain. Patient scheduled to meet with transplant team today. On recent visit with hepatology team, team expressed concern for possible venous thrombosis, withplan for upcoming ultrasound to further evaluate. - s/p EGD 07/29 which showed grade 1 and 2 varices, no active bleeding, portal gastropathy with a small spot of blood, APC was applied. Patient denied any additional aggravating or alleviating signs or symptoms unless otherwise explicitly stated above. Past Medical History: Diagnosis Date Alcoholic cirrhosis of liver (CMS-HCC) Alcoholic hepatitis Esophageal varices (CMS-HCC) Hepatorenal syndrome (CMS-HCC) Hypertension Other hyperlipidemia 07/26/2024 Renal cell carcinoma (CMS-HCC) Thrombocytopenia (CMS-HCC) Thyroid disease No past surgical history on file. Physical Exam Vitals: 09/03/24 0530 09/03/24 0600 09/03/24 0630 09/03/24 0700 BP: 133/71 139/89 136/87 BP Location: BP Cuff Size: Pulse: 113 Resp: 15 Temp: TempSrc: SpO2: 100% 100% 100% 99% General: Chronically ill-appearing. Resting comfortably. Eyes: Pupils reactive. EOMI. No discharge from eyes. Scleral icterus. ENT: No oropharyngeal edema, tolerating oral secretions. Pulmonary: Non-labored breathing. Breath sounds clear bilaterally. Cardiac: Tachycardic rate and regular rhythm. Abdomen: Soft. Significant distention with fluid wave. Diffuse TTP without rebound or guarding. Musculoskeletal: No long bone deformity. No peripheral edema. Skin: Dry, no rashes. Jaundice. Neuro: Alert and oriented x4. Moves all four extremities to command. CN II-XII intact. Mild asterixis on extended extremities. Diagnostic Studies Labs: Please see EMR for labs obtained during this patient encounter Radiology: Please see EMR for images obtained during this patient encounter EKG Interpretation: Interpreted by emergency department physician Rhythm: normal sinus Rate: normal [place]: left Ectopy: none Conduction: Prolonged QT, left anterior hemiblock ST Segments: normal T Waves: inversion in v1 and III Q Waves: none Clinical Impression: Normal sinus rhythm with pathologic left axis deviation and left anterior hemiblock, prolonged QT, T wave version in V1 and III. No prior EKG for comparison. No concern for STEMI/acute ischemia, but will continue to monitor for conduction abnormality. ROMMEL MCCOY MD ED Course and MDM Julien Anderson is a 39 y.o. male with a history and presentation as described above in HPI. The patient was evaluated by myself and the ED Attending Physician, see attestation. All management and disposition plans were discussed and agreed upon. ED Course as of 09/03/24 0701 SunSep 03, 2024 0546 Patient is normotensive, afebrile, tachycardic to 106, nontachypneic on room air at this time.Patient presents with diffuse abdominal pain of unclear etiology. Will perform broad lab workup to evaluate for acute intra-abdominal pathology, including diagnostic paracentesis to evaluate for SBP.Plan to prophylactically treat with ceftriaxone. History of hepatorenal syndrome; will evaluate forcardiac and renal injury with increased fluid status. 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 Patient also reports shortness of breath, likely in the setting of of abdominal distention, but will obtain CXR and troponin to evaluate for cardiac or pulmonary pathology. Acute symptomatic management with Dilaudid. 0603 ECG for indication of dyspnea Clinical Impression: Normal sinus rhythm with pathologic left axis deviation and left anterior hemiblock, prolonged QT, T wave version in V1 and III. No prior EKG for comparison. No concern for STEMI/acute ischemia, but will continue to monitor for conduction abnormality. 0604 High Sensitivity Troponin: 16 Troponin within normal limits, but cannot rule out ACS. Will obtain repeat 1 hour to trend. 0617 Potassium(!!): 2.6 Hypokalemic; repleted via IV. No other electrolytes requiring intervention. Elevated creatinine consistent baseline CKD. 0619 Elevated total bili and transaminases consistent with recent testing. No concern for acute pancreatic pathology. 0653 CT Abdomen and Pelvis With IV contrast 1. Cirrhotic liver morphology with sequela of portal hypertension. Portal vein is patent. 2. Liver is heterogeneous in enhancement, which is nonspecific but may be seen in setting of hepatitis. 3. Moderate to large volume intra-abdominal ascites. 4. Cholelithiasis with mild gallbladder wall thickening, which may be due to chronic hepatic dysfunction although acute cholecystitis cannot be definitively excluded recommend clinical correlation. 5. Partially calcified left renal lesion measuring up to 3 cm which per chart review has been previously cryoablated and biopsied with unclear pathology, which may reflect treated RCC versus complex renal cyst. No prior available for direct comparison. Recommend continued attention on follow-up versus comparison with outside priors if available. 6. Right testicle is herniated into a small to moderately sized right inguinal hernia. 0653 X-ray Portable Chest No acute cardiopulmonary abnormality. 0700 Patient signed out to oncoming provider. Medications received during this ED visit: Medications potassium chloride (KCl)/Sterile water 100 mL 10 mEq/100 mL IVPB 10 mEq (10 mEq Intravenous New Bag09/03/24628) HYDROmorphone (DILAUDID) injection Syrg 1 mg (1 mg Intravenous Given 09/03/24527) cefTRIAXone (ROCEPHIN) 2 g in sodium chloride 0.9% 20 mL IV Push (2 g Intravenous Given 09/03/24611) lidocaine-EPINEPHrine 2 %-1:100,000 injection 1 mL (1 mL Intradermal Given 09/03/24611) OMNIPAQUE (iohexol) 350 mg iodine/mL 150 mL (150 mLs Intravenous Given 09/03/24 0558) Medical Decision Making Problems Addressed: Abdominal pain, unspecified abdominal location: complicated acute illness or injury Alcoholic cirrhosis of liver with ascites (CMS-HCC): complicated acute illness or injury Amount and/or Complexity of Data Reviewed Independent Historian: spouse External Data Reviewed: labs, radiology and notes. Labs: ordered. Decision-making details documented in ED Course. Radiology: ordered. Decision-making details documented in ED Course. ECG/medicine tests: ordered. Decision-making details documented in ED Course. Risk OTC drugs. Prescription drug management. Decision regarding hospitalization. Impression 1. Alcoholic cirrhosis of liver with ascites (CMS-HCC) 2. Abdominal pain, unspecified abdominal location Plan At this time, I will be going off service and have signed out the patient to my oncoming colleague.Response to the responsibilities will include: - follow-up labs - reassess paracentesis site - admit for SBP, decompensated alcoholic cirrhosis ROMMEL MCCOY MD Emergency Medicine This note was dictated using voice-recognition software, which occasionally leads to inadvertent typographic errors. Rommel Mccoy MD Resident 09/03/24 07 Cosigned by Ana Maria Ramey MD at 09/03/2024 7:07 AM EDT documented in this encounter Procedure Notes * NAA Rodriguez - 09/09/2024 2:19 PM EDTAssociated Order(s): PARACENTESIS Procedure(s): PARACENTESIS Pre-Procedure Diagnose(s): Ascites due to alcoholic cirrhosis (CMS-HCC) Post-Procedure Diagnose(s): Ascites due to alcoholic cirrhosis (CMS-HCC) Paracentesis Procedure Note Date: 09/09/2024 Time: 2:20 PM Indication: Ascites Procedure: Diagnostic and Therapeutic Paracentesis Informed consent was obtained. Ultrasound was used to evaluate the presence of peritoneal fluid. Optimal site marked LLQ . Under sterile conditions, 5 Fr/7cm Jamppeh catheter was inserted in a LLQ site after local anesthesia was administered using 1% lidocaine. 3.5 L of ascitic fluid was removed and sent for cell count and differential, aerobic and anaerobic culture. 50 g of 25% albumin to be ordered post-procedure. Discussed with primary team. Catheter pulled, area dressed with gauze and tegederm. Patient tolerated procedure well without apparent complications. Clear to discharge from hepatology perspective. Patient has standing order for outpatient paracentesis by IR close to his home. Directed him to call to schedule paracentesis in 1 week. Has completed course of IV abx and will transition to ciprofloxacin 500 mg daily at discharge for SBP prophylaxis.Will continue indefinitely. NAA RODRIGUEZ * Shelia Logan CNP - 09/04/2024 3:33 PM EDT Vascular & Interventional Radiology Brief Op Note Date: 09/04/2024 Patient: Julien Anderson : 1985 IR Procedure(s) Performed: Ultrasound guided diagnostic and therapeutic paracentesis Operators: Shelia Logan CNP Pre-operative diagnosis: Ascites Post-operative diagnosis: Same Intra-procedural Medications: SQ local lidocaine with epi Findings: Technically successful ultrasound guided diagnostic and therapeutic paracentesis Specimens removed: 4000 ml clear yellow fluid Estimated Blood Loss: Minimal (less than 15mL) Complications: None Access site(s): RLQ ABD Post procedure care/monitoring: Monitor for bleeding, infection, and increased abdominal pain Recommendations/Follow-up: Return to IR when indicated Please refer to full dictated Interventional Radiology report for details of findings/procedures, which can be located in EPIC Procedures (or EPIC Imaging) Tabs. Plan discussed with provider Ashley ABDULLAHI from Medicine team 09/04/2024, 3:51 PM. Please call with any questions. Shelia Logan CNP Vascular & Interventional Radiology 09/04/2024,3:51 PM [facility]: [phone] * Rommel Mccoy MD - 09/03/2024 7:01 AM EDTAssociated Order(s): Paracentesis [facility] ED Procedure Note Emergency Department Procedures Paracentesis Date/Time: 09/03/2024 7:01 AM Performed by: Rommel Mccoy MD Authorized by: Ana Maria Ramey MD Consent: Consent obtained: Written Consent given by: Patient Risks, benefits, and alternatives were discussed: yes Risks discussed: Bleeding, bowel perforation, infection and pain Alternatives discussed: No treatment [place] protocol: Procedure explained and questions answered to patient or proxy's satisfaction: yes Relevant documents present and verified: yes Test results available: yes Imaging studies available: yes Required blood products, implants, devices, and special equipment available: yes Site/side marked: yes Immediately prior to procedure, a time out was called: yes Patient identity confirmed: Verbally with patient, hospital-assigned identification number and arm band Pre-procedure details: Procedure purpose: Diagnostic Preparation: Patient was prepped and draped in usual sterile fashion Anesthesia: Anesthesia method: Local infiltration Local anesthetic: Lidocaine 1% WITH epi Procedure details: Needle gauge: 18 Ultrasound guidance: used to identify site. Puncture site: L lower quadrant Fluid removed amount: 1L Fluid appearance: Radha and bloody Dressinx4 sterile gauze and adhesive bandage Post-procedure details: Procedure completion: Tolerated Cosigned by Ana Maria Ramey MD at 09/03/2024 7:07 AM EDT documented in this encounter Consult Notes * Farhana Contreras CNP - 09/08/2024 9:33 AM EDT Interventional Radiology Consult Note Date: 09/08/2024 Patient: Julien : 1985 Primary Care Provider: Enedina Mcguire NP Requesting Provider: Kathie Sanchez MD Chief Complaint: Abdominal Pain Reason for Consult: Ascites IR Procedure Request Received and Reviewed. HPI: Julien is a 39 y.o. male with a PMHx of HTN, Thyroid disease, thrombocytopenia, RCC s/p ablation (left side) and alcoholic cirrhosis c/b ascites, esophageal varices and HRS who presented to the ED on 09/03 with diffuse abdominal pain. He had an IR D/T paracentesis on 09/04 (4L of clear yellow ascites removed) with worsening abdominal distention since. Labs from this tap are consistent for SBP and his 5 course of ceftriaxone will finish today. He also suffered an NADIYA without concern for obstructionon CT A/P. Treated as HRS initially given severity of CKD and cirrhosis, receiving albumin challenge. Abdominal US 09/03 demonstrated cirrhosis and stigmata of portal hypertension including ascites. No focal hepatic lesion. Cholelithiasis with no sonographic evidence of acute cholecystitis. IR was consulted for another therapeutic paracentesis. History: Past Medical History: Diagnosis Date Alcoholic cirrhosis of liver (CMS-HCC) Alcoholic hepatitis Esophageal varices (CMS-HCC) Hepatorenal syndrome (CMS-HCC) Hypertension Other hyperlipidemia 07/26/2024 Renal cell carcinoma (CMS-HCC) Thrombocytopenia (CMS-HCC) Thyroid disease No past surgical history on file. No family history on file. Social Hx: Tobacco Use History[1] Social History Substance and Sexual Activity Drug Use Yes Types: Marijuana Social History Substance and Sexual Activity Alcohol Use Yes Comment: History of alcohol abuse, reports no use in 3 week- typically endorses use as 4 glasses ofwine a days Allergies: Allergies[2] Home Medications: Home Medications Medication Sig Taking? Last Dose folic acid (FOLVITE) 1 MG tablet Take 1 tablet (1 mg total) by mouth daily. Yes 09/04/2024 lactulose (CHRONULAC) 10 gram/15 mL solution Take 30 mLs (20 g total) by mouth 3 times a day as needed (goal 2-3 bowel movements a day). Yes 09/04/2024 levothyroxine (SYNTHROID) 75 MCG tablet Take 1 tablet (75 mcg total) by mouth every morning before breakfast. Yes 09/04/2024 pantoprazole (PROTONIX) 40 MG tablet Take 1 tablet (40 mg total) by mouth every morning before breakfast. Yes 09/04/2024 potassium chloride (KLOR-CON M20) 20 MEQ tablet Take 2 tablets (40 mEq total) by mouth daily. Yes 09/04/2024 rifAXIMin (XIFAXAN) 550 mg Tab tablet Take 1 tablet (550 mg total) by mouth 2 times a day. Yes 09/04/2024 sodium bicarbonate 650 MG tablet Take 2 tablets (1,300 mg total) by mouth 3 times a day. Yes 09/04/2024 thiamine HCl (VITAMIN B-1) 100 MG tablet Take 1 tablet (100 mg total) by mouth daily. Yes 09/04/2024 traMADoL (ULTRAM) 50 mg tablet Take 1 tablet (50 mg total) by mouth every 12 hours as needed for Pain (Pain). Yes 09/04/2024 zinc sulfate (ZINCATE) 50 mg zinc (220 mg) capsule Take 1 capsule (220 mg total) by mouth daily. Yes 09/04/2024 cholestyramine-aspartame (PREVALITE) 4 gram Powd bulk Mix one scoop with 4-6 ounces of water and drink by mouth daily. Unknown Current Medications: Scheduled Medications: cefTRIAXone (ROCEPHIN) IVPB, 2 g, Daily 0900 cholestyramine, 4 g, Daily 0900 folic acid, 1 mg, Daily 0900 [Held by provider] heparin, 5,000 Units, 3 times per day [Held by provider] lactulose, 20 g, QID levothyroxine, 75 mcg, QAM AC magnesium sulfate in sterile water 50 mL, 2 g, Once pantoprazole, 40 mg, QAM AC potassium chloride ER, 40 mEq, Once rifAXIMin, 550 mg, BID sodium bicarbonate, 1,300 mg, TID thiamine, 100 mg, Daily 0900 ursodioL, 300 mg, BID zinc sulfate, 220 mg, Daily 0900 IV Meds: PRN Medications: acetaminophen, 650 mg, Q8H PRN lactulose, 20 g, TID PRN lactulose, 200 g, TID PRN melatonin, 3 mg, Nightly PRN ondansetron, 4 mg, Q8H PRN oxyCODONE, 2.5 mg, Q4H PRN Or oxyCODONE, 5 mg, Q4H PRN ROS: Review of Systems Constitutional: Positive for malaise/fatigue. Negative for chills and fever. Respiratory: Negative for cough and shortness of breath. Cardiovascular: Negative for chest pain. Gastrointestinal: Positive for abdominal pain and diarrhea. Negative for nausea and vomiting. Vitals: Vitals: 09/07/24 1525 09/07/24 2035 09/08/24 0425 09/08/24 0835 BP: 137/63 154/84 125/73 128/88 BP Location: Left upper arm Right upper arm Right upper arm Right upper arm Patient Position: Lying Lying Sitting Sitting BP Cuff Size: Regular Pulse: 93 104 91 91 Resp: 18 19 20 20 Temp: 97.7 ??F (36.5 ??C) 97.9 ??F (36.6 ??C) 97.6 ??F (36.4 ??C) 97.7 ??F (36.5 ??C) TempSrc: Oral Oral Oral Oral SpO2: 100% 100% 99% 100% Weight: Height: PE: Physical Exam Constitutional: General: He is not in acute distress. Appearance: Normal appearance. He is ill-appearing. Eyes: General: Scleral icterus present. Pupils: Pupils are equal, round, and reactive to light. Pulmonary: Effort: Pulmonary effort is normal. No respiratory distress. Comments: On room air Abdominal: General: There is distension. Palpations: Abdomen is soft. Tenderness: There is abdominal tenderness. Skin: General: Skin is warm and dry. Coloration: Skin is jaundiced. Neurological: General: No focal deficit present. Mental Status: He is alert and oriented to person, place, and time. Psychiatric: Mood and Affect: Mood normal. Behavior: Behavior normal. Labs: Recent Labs 09/06/24 1637 09/07/24 0342 09/08/24 0405 WBC 5.1 4.0 6.5 HGB 8.3* 7.4* 8.0* HCT 23.3* 20.7* 22.3* MCV 100.4* 100.2* 100.8* PLT 45* 40* 43* Recent Labs 09/07/24 0342 09/07/24 1536 09/08/24 0405 NA 137 139 137 K 3.2* 3.4* 3.3* CL 111* 112* 112* CO2 15* 18* 13* PHOS 1.9* 2.0* 2.2 BUN 36* 34* 31* CREATININE 2.60* 2.40* 2.36* CALCIUM 8.3* 8.5* 8.3* Recent Labs 08/15/24 1035 08/16/24 0718 09/03/24 0529 09/04/24 0522 09/05/24 0724 09/06/24 0430 09/07/24 0342 09/08/24 0405 BILITOT -- < > 32.5* 25.5* < > 21.3* 18.9* 18.7* AST -- < > 73* 43* < > 46* 47* 48* ALT -- < > 45 30 < > 25 26 ALKPHOS -- < > 139* 75 < > 85 104 114 LIPASE 66 -- 40 40 -- -- -- -- < > = values in this interval not displayed. Recent Labs 09/06/24 0430 09/06/24 1637 09/07/24 0342 09/07/24 1536 09/08/24 0405 ALBUMIN 3.7 3.7 < > 3.5 3.5 3.6 3.4* 3.4* BILIDIRECT 14.43* -- 9.8* -- 9.06* < > = values in this interval not displayed. Recent Labs 09/06/24 0430 09/07/24 0342 09/08/24 0405 INR 2.2* 2.3* 2.3* PROTIME 25.3* 26.1* 26.0* Imaging: No results found for this or any previous visit from the past 72 hours. No results found for this or any previous visit from the past 72 hours. I personally reviewed the relevant findings from the above imaging results. Medical Decision Making Assessment: Julien is a 39 y.o. male referred to interventional radiology for a therapeutic paracentesis. Plt 43, Hgb 8.0, INR 2.3, SQ Heparin has been held Spoke with Primary team and they are double checking if they want labs. Plan: 1. Will proceed with the therapeutic paracentesis. 2. Sedation Plan/Type: Local/Subcutaneous Lidocaine 1% with lidocaine 3. No NPO Hold due to secure airway and non-GI procedures planned. 4. Current Anti-coagulation hold: SQ Heparin has been held 5. Allergy to adhesive. Consent: Consent obtained and placed in chart Please call with any questions. Additional Time Spent: Time Spent with Patient: Total [id number] time spent with patient (greater than 50% of the visit was for the purpose of discussion and counseling): 35 minutes. FARHANA CONTRERAS CNP Vascular & Interventional Radiology 09/08/2024,9:33 AM [facility]: [phone]) [1] Social History Tobacco Use Smoking Status Former Types: Cigarettes Smokeless Tobacco Current [2] Allergies Allergen Reactions Adhesive Itching and Rash Tegaderm adhesive on Ivs, pt states its tolerable Duloxetine Other (See Comments) Became Manic * Gee May MD - 09/04/2024 6:39 PM EDTAssociated Order(s): IP CONSULT TO RENAL Images from the original note were not included. Department of Internal Medicine Nephrology & Hypertension Consult History & Physical Note Patient: Julien Anderson Date of Admit: 09/03/2024 Referring physician: Kiet Ramirez MD Assessment: Renal Function: Cr: 3.31 Bun: 43 on 09/04/2024 Baseline Scr 1-1.2 mg/dL Recurrent admission in recent past with NADIYA in the context of decompensated cirrhosis. Most recently was admitted between 08/12-08/19. Managed on the lines of HRS. Discharge creatinine 2.7. Had LVP on 08/27/24. Now uptrending creatinine. UA-6.5/> 1.035/trace/negative/NAD Urine electrolytes- <10/23/<15 Ultrasound retroperitoneum 09/03/2024 Right kidney: 11.3 cm in length. Normal parenchymal echogenicity. No hydronephrosis. Nonobstructingright renal calculi are better seen on the recent CT Left kidney: 13 cm in length. Normal parenchymal echogenicity. No hydronephrosis. Recently described partially calcified left renal lesion is not well seen Received IV contrast on 09/03/2024 Electrolytes: Na: 134 K: 3.5 Cl: 104 Ma.4 Ca: 9.1 Phos: 2.2 Mild hyponatremia in the setting of decompensated liver disease and renal dysfunction Acid Base Status: Anion Gap: 10 Bicarb: 20 NAGMA of renal dysfunction CVS: BP: 131/55 Goal MAP > 75 On IV albumin + midodrine CKD-MBD: Ca: 9.1 PO4: 2.2 Alb: 3.2 PTH: No results found for requested labs within last 3600 days. on No results found for requested labs within last 3600 days. Vit D: No results found for requested labs within last 3600 days. on No results found for requestedlabs within last 3600 days. No current issues Anemia of CKD: Hgb 8.5 Hct 23.1 Plt 41 Iron No results found for requested labs within last 3600 days. on No results found for requested labs within last 3600 days. Ferritin No results found for requested labs within last 3600 days. on No results found for requested labs within last 3600 days. TIBC: No results found for requested labs within last 3600 days. on No results found for requested labs within last 3600 days. Haptoglobin: No results found for requested labs within last 3600 days. on No results found for requested labs within last 3600 days. LDH: No results found for requested labs within last 3600 days. on No results found for requested labs within last 3600 days. Consistent with anemia of chronic disease transfusion per primary Plan: Patient seen and examined. Labs reviewed. Etiology of NADIYA is consistent with HRS precipitated by recent LVP. S/p LVP today, 4L removed. Agree with current line of management with IV albumin (day 2, today) + midodrine/octreotide. If worsening renal function, consider switching to Terlipressin from tomorrow. Monitor I's and O's Daily renal panel No indication for dialysis today Thank you for allowing us to participate in this patient's care. Discussed with Consult Staff. Gee May Nephrology fellow Pager [phone] Chief Complaint Chief Complaint Patient presents with Abdominal Pain Reason for Consult Recurrent NADIYA in the setting of D/cirrhosis History of Present Illness 39/M PMH of EToH related D cirrhosis (EV, HRS, ascites, HCV), RCC s/p ablation (left side). Recently wasdischarged from hospital on 08/19/2024, after being managed for NADIYA/HRS. Now presented with pain abdomen following LVP on 08/27. On evaluation found to have worsened kidney function. Nephrology consulted for assistance in management. Histories he has a past medical history of Alcoholic cirrhosis of liver (CMS-HCC), Alcoholic hepatitis, Esophageal varices (CMS-HCC), Hepatorenal syndrome (CMS- HCC), Hypertension, Other hyperlipidemia (07/26/2024), Renal cell carcinoma (CMS-HCC), Thrombocytopenia (CMS-HCC), and Thyroid disease. he has no past surgical history on file. he family history is not on file. he reports that he has quit smoking. His smoking use included cigarettes. He uses smokeless tobacco. He reports current alcohol use. He reports current drug use. Drug: Marijuana. Allergies[1] Physical Exam Patient Vitals for the past 4 hrs: BP Pulse Resp SpO2 09/04/24 1730 131/55 81 16 99 % 09/04/24 1511 124/74 90 16 -- Wt Readings from Last 3 Encounters: 09/03/24 (!) 261 lb 3.9 oz (118.5 kg) 09/02/24 (!) 258 lb (117 kg) 08/17/24 (!) 242 lb 11.2 oz (110.1 kg) Intake/Output Summary (Last 24 hours) at 09/04/2024 1840 Last data filed at 09/04/2024 1721 Gross per 24 hour Intake 554.6 ml Output 175 ml Net 379.6 ml General appearance: Chronically ill, icteric HEENT: EOMi, conjunctiva nl, sclera non-icteric Lungs: No RD, CTA b/l Heart: RRR, no audible murmurs Abdomen: Firm, NT, distended, +BS Extremities:leg edema + Psych: good eye contact, normal affect Neuro: AAOx3, gross motor intact Laboratory Data and Imaging Recent Labs 09/03/24 0529 09/03/24 1726 09/04/24 0522 WBC 10.8 9.9 9.6 HGB 11.9* 8.4* 8.5* HCT 33.0* 23.1* 23.1* MCV 98.6 98.3 98.6 PLT 71* 42* 41* Recent Labs 09/02/24 1700 09/02/24 1700 09/03/24 0529 09/03/24 1049 09/03/24 1343 09/04/24 0220 09/04/24 0522 09/04/24 1621 NA 136 -- 133 133 < > 133 132* 134 K 2.7* -- 2.6* 2.8* < > 3.8 3.7 3.5 CL 101 -- 100 101 < > 103 103 104 CO2 21 -- 20* 19* < > 18* 18* 20* BUN 39* -- 38* 39* < > 41* 41* 43* CREATININE 2.93* -- 3.01* 3.26* < > 3.36* 3.21* 3.31* GLUCOSE 137* -- 133* 84 < > 145* 162* 142* CALCIUM 8.5* -- 8.9 8.6 < > 9.0 8.5* 9.1 MG -- < > 2.0 1.8 < > 2.5 2.4 2.4 PHOS -- -- -- 2.5 -- -- 2.2 -- ANIONGAP 14 -- 13 13 < > 12 11 10 ALBUMIN 3.3* 3.3* -- 3.4* -- -- -- 3.2* -- < > = values in this interval not displayed. Recent Labs 09/03/24 1049 09/03/24 1343 09/04/24 0220 09/04/24 0522 09/04/24 1621 CALCIUM 8.6 < > 9.0 8.5* 9.1 PHOS 2.5 -- -- 2.2 -- < > = values in this interval not displayed. No results found for: IRON , TIBC , FERRITIN No results found for: [id number] , FOLATE Lab Results Component Value Date COLORU Yellow 09/03/2024 CLARITYU Cloudy (A) 09/03/2024 PROTEINUA Trace (A) 09/03/2024 PHUR 6.5 09/03/2024 LABSPEC >1.035 (H) 09/03/2024 GLUCOSEU Negative 09/03/2024 BLOODU Negative 09/03/2024 LEUKOCYTESUR Negative 09/03/2024 NITRITE Negative 09/03/2024 BILIRUBINUR Small (A) 09/03/2024 UROBILINOGEN <2.0 09/03/2024 RBCUA 1 09/03/2024 WBCUA 1 09/03/2024 BACTERIA Occasional (A) 09/03/2024 Recent Labs 09/03/24 1521 NAUR <10 KUR 23.0 CLUR <15 No results found for: MICROALBUR , [id number] In addition to the above an extensive amount of complex data in the patients lab and chart were reviewed. Medications: Home Medications: Home Medications Medication Sig Taking? Last Dose cholestyramine-aspartame (PREVALITE) 4 gram Powd bulk Mix one scoop with 4-6 ounces of water and drink by mouth daily. folic acid (FOLVITE) 1 MG tablet Take 1 tablet (1 mg total) by mouth daily. lactulose (CHRONULAC) 10 gram/15 mL solution Take 30 mLs (20 g total) by mouth 3 times a day as needed (goal 2-3 bowel movements a day). levothyroxine (SYNTHROID) 75 MCG tablet Take 1 tablet (75 mcg total) by mouth every morning before breakfast. pantoprazole (PROTONIX) 40 MG tablet Take 1 tablet (40 mg total) by mouth every morning before breakfast. potassium chloride (KLOR-CON M20) 20 MEQ tablet Take 2 tablets (40 mEq total) by mouth daily. rifAXIMin (XIFAXAN) 550 mg Tab tablet Take 1 tablet (550 mg total) by mouth 2 times a day. sodium bicarbonate 650 MG tablet Take 2 tablets (1,300 mg total) by mouth 3 times a day. thiamine HCl (VITAMIN B-1) 100 MG tablet Take 1 tablet (100 mg total) by mouth daily. traMADoL (ULTRAM) 50 mg tablet Take 1 tablet (50 mg total) by mouth every 12 hours as needed for Pain (Pain). zinc sulfate (ZINCATE) 50 mg zinc (220 mg) capsule Take 1 capsule (220 mg total) by mouth daily. Inpatient Meds: cholestyramine 4 g Oral Daily 0900 folic acid 1 mg Oral Daily 0900 [Held by provider] heparin 5,000 Units Subcutaneous 3 times per day lactulose 20 g Oral QID levothyroxine 75 mcg Oral QAM AC midodrine 15 mg Oral TID pantoprazole 40 mg Oral QAM AC rifAXIMin 550 mg Oral BID sodium bicarbonate 1,300 mg Oral TID thiamine (vitamin B1) IV orderable 200 mg Intravenous Q8H zinc sulfate 220 mg Oral Daily 0900 Continuous Infusions: PRN medications: acetaminophen, lactulose, lactulose, ondansetron, oxyCODONE OR oxyCODONE Diagnostic Imaging Reviewed in EMR. [1] Allergies Allergen Reactions Adhesive Itching and Rash Tegaderm adhesive on Ivs, pt states its tolerable Duloxetine Other (See Comments) Became Manic Cosigned by Aneudy Simons at 09/05/2024 12:13 AM EDT Associated attestation - Aneudy Simons - 09/05/2024 12:13 AM EDT Patient is seen and examined by me with Fellow and team on 09/04/2024 Medicines and Data reviewed Interim notes in chart reviewed. I agree in full with the assessment and plan as outlined in the fellows note. My additional comments are NADIYA: due to HRS-1. Receiving IV albumin after LVP, 2nd day today. Creatinine still in 3's but stable. Concern for oliguria, bladder scan falsely picking up ascites as urine. Need straight cath to confirm this. Continue midodrine/octreotide. Will consider giving terlipressin tomorrow after 48 hours of albumintrial and if no improvement in creatinine seen ANEUDY SIMONS 09/04/2024 * Seun Phillips - 09/04/2024 3:03 PM EDT [facility] Case Management/Social Work Department Brief Assessment Re-Admission within 30 days Planned or unplanned? Unplanned If planned: Reason? N/A If unplanned: Reason? Abd pain Discuss with patient any barriers to prevent re-admission? N/A Patient Information Admission diagnosis: Demographic verified and updated as needed Support Systems Designated decision maker (POA or Next of Kin): Nikkie Anderson Phone #: [phone] Relationship: Spouse Living Arrangements Prior to Hospitalization Patient lives with his spouse in a [...] at this time. 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 May need a work note at discharge. Patient has no history of or current mental health concerns or diagnoses. Patient has a history of or current alcohol abuse. Last consumed about 1.5 months ago. No home oxygen or dialysis. No history of residential facility or inpatient rehabilitation facility admissions. No history of home health care services. PCP on file is correct, Enedina Mcguire. Family to transport. Community Resources Prior to Hospitalization N/A Discharge Plan Anticipated discharge plan: Per H4 team, patient is not medically ready for discharge at this time.Possible para tomorrow. Company Name(s) and Phone # Home Anticipated discharge date: 09/05 Transportation at Discharge: Family Please contact CM/SW for any further discharge planning needs. Patient/Family aware and taking part in the discharge plan. Patient/family educated that once post-acute care needs have been identified, a provider list applicable to the identified post-acute care needs as well as the insurance provider will be provided, and patient/family have the freedom to choose their provider(s); financial interest(s) are disclosed as appropriate. [address] [employer] [phone] * Shelia Logan CNP - 09/04/2024 11:54 AM EDT Interventional Radiology Consult Note Date: 09/04/2024 Patient: Julien Anderson : 1985 Primary Care Provider: Enedina Mcguire NP Requesting Provider: Vernon Santizo MD Chief Complaint: Abdominal Pain Reason for Consult: ascites IR Procedure Request Received and Reviewed. HPI: Julien Anderson is a 39 y.o. male with Pmhx of EtOH cirrhosis d/b HE, jaundice, NBEV, and ascites withrecent alcoholic associated hepatitis currently admitted with abdominal pain and malaise. US 09/03 demonstrates moderate volume ascites. Diagnostic para in ED not concerning for SBP. IR consulted for repeat D/T paracentesis (no more than 4 L of ascites to be removed 2/2 HRS). Patient INR 3.0 today. Will proceed with D/T paracentesis History: Past Medical History: Diagnosis Date Alcoholic cirrhosis of liver (CMS-HCC) Alcoholic hepatitis Esophageal varices (CMS-HCC) Hepatorenal syndrome (CMS-HCC) Hypertension Other hyperlipidemia 07/26/2024 Renal cell carcinoma (CMS-HCC) Thrombocytopenia (CMS-HCC) Thyroid disease No past surgical history on file. No family history on file. Social Hx: Tobacco Use History[1] Social History Substance and Sexual Activity Drug Use Yes Types: Marijuana Social History Substance and Sexual Activity Alcohol Use Yes Comment: History of alcohol abuse, reports no use in 3 week- typically endorses use as 4 glasses ofwine a days Allergies: Allergies[2] Home Medications: Home Medications Medication Sig Taking? Last Dose cholestyramine-aspartame (PREVALITE) 4 gram Powd bulk Mix one scoop with 4-6 ounces of water and drink by mouth daily. folic acid (FOLVITE) 1 MG tablet Take 1 tablet (1 mg total) by mouth daily. lactulose (CHRONULAC) 10 gram/15 mL solution Take 30 mLs (20 g total) by mouth 3 times a day as needed (goal 2-3 bowel movements a day). levothyroxine (SYNTHROID) 75 MCG tablet Take 1 tablet (75 mcg total) by mouth every morning before breakfast. pantoprazole (PROTONIX) 40 MG tablet Take 1 tablet (40 mg total) by mouth every morning before breakfast. potassium chloride (KLOR-CON M20) 20 MEQ tablet Take 2 tablets (40 mEq total) by mouth daily. rifAXIMin (XIFAXAN) 550 mg Tab tablet Take 1 tablet (550 mg total) by mouth 2 times a day. sodium bicarbonate 650 MG tablet Take 2 tablets (1,300 mg total) by mouth 3 times a day. thiamine HCl (VITAMIN B-1) 100 MG tablet Take 1 tablet (100 mg total) by mouth daily. traMADoL (ULTRAM) 50 mg tablet Take 1 tablet (50 mg total) by mouth every 12 hours as needed for Pain (Pain). zinc sulfate (ZINCATE) 50 mg zinc (220 mg) capsule Take 1 capsule (220 mg total) by mouth daily. Current Medications: Scheduled Medications: cholestyramine, 4 g, Daily 0900 folic acid, 1 mg, Daily 0900 [Held by provider] heparin, 5,000 Units, 3 times per day lactulose, 20 g, QID levothyroxine, 75 mcg, QAM AC midodrine, 15 mg, TID pantoprazole, 40 mg, QAM AC rifAXIMin, 550 mg, BID sodium bicarbonate, 1,300 mg, TID thiamine (vitamin B1) IV orderable, 200 mg, Q8H zinc sulfate, 220 mg, Daily 0900 IV Meds: PRN Medications: acetaminophen, 650 mg, Q8H PRN lactulose, 20 g, TID PRN lactulose, 200 g, TID PRN lidocaine, , PRN ondansetron, 4 mg, Q8H PRN oxyCODONE, 2.5 mg, Q4H PRN Or oxyCODONE, 5 mg, Q4H PRN ROS: Review of Systems Constitutional: Positive for malaise/fatigue. Negative for chills and fever. HENT: Negative. Respiratory: Negative. Cardiovascular: Negative. Gastrointestinal: Positive for abdominal pain. Negative for nausea and vomiting. Skin: Negative. Neurological: Negative. Vitals: Vitals: 09/04/24 1100 09/04/24 1350 09/04/24 1428 09/04/24 1511 BP: 115/55 126/65 126/65 124/74 BP Location: Left upper arm Patient Position: Lying BP Cuff Size: Regular Pulse: 81 74 81 90 Resp: 13 14 15 16 Temp: 97.5 ??F (36.4 ??C) TempSrc: Axillary SpO2: 100% 95% 93% Weight: PE: Physical Exam Constitutional: Appearance: Normal appearance. HENT: Head: Normocephalic and atraumatic. Cardiovascular: Rate and Rhythm: Normal rate and regular rhythm. Pulmonary: Effort: Pulmonary effort is normal. Abdominal: General: There is distension. Palpations: Abdomen is soft. Musculoskeletal: General: Normal range of motion. Cervical back: Normal range of motion. Skin: General: Skin is warm and dry. Coloration: Skin is jaundiced. Neurological: General: No focal deficit present. Mental Status: He is alert. Labs: Recent Labs 09/03/24 0529 09/03/24 1726 09/04/24 0522 WBC 10.8 9.9 9.6 HGB 11.9* 8.4* 8.5* HCT 33.0* 23.1* 23.1* MCV 98.6 98.3 98.6 PLT 71* 42* 41* Recent Labs 08/19/24 0259 09/02/24 17009/03/24 1049 09/03/24 1343 09/03/24 2150 09/04/24 0220 09/04/24 0522 NA 134 < > 133 < > 131* 133 132* K 3.2* < > 2.8* < > 4.2 3.8 3.7 CL 110 < > 101 < > 102 103 103 CO2 15* < > 19* < > 17* 18* 18* PHOS 2.8 -- 2.5 -- -- -- 2.2 BUN 39* < > 39* < > 41* 41* 41* CREATININE 2.69* < > 3.26* < > 3.44* 3.36* 3.21* CALCIUM 9.0 < > 8.6 < > 8.5* 9.0 8.5* < > = values in this interval not displayed. Recent Labs 08/15/24 1035 08/16/24 0718 09/02/24 17009/03/24 0529 09/04/24 0522 BILITOT -- < > 35.4* 35.4* 32.5* 25.5* AST -- < > 68* 68* 73* 43* ALT -- < > 43 43 45 30 ALKPHOS -- < > 140* 140* 139* 75 LIPASE 66 -- -- 40 40 < > = values in this interval not displayed. Recent Labs 09/02/24 17009/03/24 0529 09/04/24 0522 ALBUMIN 3.3* 3.3* 3.4* 3.2* BILIDIRECT 20.97* 19.8* 17.39* Recent Labs 09/02/24 17009/03/24 0535 09/04/24 0522 INR 1.9* 2.0* 3.0* PROTIME 22.2* 22.9* 32.0* Imaging: No results found for this or any previous visit from the past [address] Procedure(s) Impressions: CT Abdomen and Pelvis With IV contrast 09/03/2024 Impression 1. Cirrhotic liver morphology with sequela of portal hypertension. Portal vein is patent. 2. Liver is heterogeneous in enhancement, which is nonspecific but may be seen in setting of hepatitis. 3. Moderate to large volume intra-abdominal ascites. 4. Cholelithiasis with mild gallbladder wall thickening, which may be due to chronic hepatic dysfunction although acute cholecystitis cannot be definitively excluded recommend clinical correlation. 5. Partially calcified left renal lesion measuring up to 3 cm which per chart review has been previously cryoablated and biopsied with unclear pathology, which may reflect treated RCC versus complex renal cyst. No prior available for direct comparison. Recommend continued attention on follow-up versus comparison with outside priors if available. 6. Right testicle is herniated into a small to moderately sized right inguinal hernia. Approved by Alejandro Guajardo DO on 09/03/2024 6:37 AM EDT I have personally reviewed the images and I agree with this report. Report Verified by: Ian Veronica MD at 09/03/2024 6:46 AM EDT I personally reviewed the relevant findings from the above imaging results. Medical Decision Making Assessment: Julien Anderson is a 39 y.o. male with a PMHx of cirrhosis d/b ascites. He presents to IR for diagnostic and therapeutic paracentesis. Plan: 1. Will proceed with diagnostic and therapeutic paracentesis 2. Sedation Plan/Type: Local/Subcutaneous Lidocaine 1% with epi Consent: Consent obtained and placed in chart Please call with any questions. Shelia Logan CNP Vascular & Interventional Radiology 09/04/2024,3:32 PM [facility]: [phone]) [1] Social History Tobacco Use Smoking Status Former Types: Cigarettes Smokeless Tobacco Current [2] Allergies Allergen Reactions Adhesive Itching and Rash Tegaderm adhesive on Ivs, pt states its tolerable Duloxetine Other (See Comments) Became Manic * Leatha Ceja - 09/04/2024 9:45 AM EDTAssociated Order(s): IP CONSULT TO LIVER HEPATOLOGY CONSULT NOTE Consulted by: Kiet Ramirez MD Consult Question: Cirrhosis co-management History of Present Illness: Julien Anderson is a 39 y.o. male w/ PMHx EtOH cirrhosis d/b HE, jaundice, ascites, small non-bleedingEV, recent alcohol-associated hepatitis, RCC s/p treatment and c/f congenital renal disorder, HTN, HLD, HRS-CKD. He has had multiple admissions since June for decompensations, ACLF. MELD 43 In terms of cirrhosis history, long standing dx 2/2 to alcohol (see below): Patient was recently admitted 07/08/24-07/23/24 at with alcohol-associated hepatitis and ACLF in the setting of [...] ineligible d/t alcohol use. Then re-admitted to [facility] 07/25-07/29 after worsening outpatient labs (NADIYA). also noted ongoing/worsening jaundice. Repeat US without ascites. His last drink was prior to admission at . During prior admission, renal function improved with volume expansion, held octreotide and midodrine. [facility] Admission -08/19/24 with generalized weakness, worsening labs in outpatient setting, NADIYA on CKD, Tbili>60, hepatic encephalopathy. Required admission to MICU for pressor support. Renal function improved with albumin and pressors. Presented to ED with 10/10 abdominal pain, malaise. Pain improving with analgesics, ruled out SBP. This morning he is alert and oriented, reporting 5/10 generalized abdominal pain. Maintained MAP>70 overnight. MELD 3.0: 43 at 09/04/2024 5:22 AM Calculated from: Serum Creatinine: 3.21 mg/dL (Using max of 3 mg/dL) at 09/04/2024 5:22 AM Serum Sodium: 132 mmol/L at 09/04/2024 5:22 AM Total Bilirubin: 25.5 mg/dL at 09/04/2024 5:22 AM Serum Albumin: 3.2 g/dL at 09/04/2024 5:22 AM INR(ratio): 3 at 09/04/2024 5:22 AM Age at listing (hypothetical): 39 years Sex: Male at 09/04/2024 5:22 AM Review of Systems All systems reviewed and negative except as listed above in HPI. Past Medical History: Diagnosis Date Alcoholic cirrhosis of liver (CMS-HCC) Alcoholic hepatitis Esophageal varices (CMS-HCC) Hepatorenal syndrome (CMS-HCC) Hypertension Other hyperlipidemia 07/26/2024 Renal cell carcinoma (CMS-HCC) Thrombocytopenia (CMS-HCC) Thyroid disease No past surgical history on file. No family history on file. Social History Tobacco Use Smoking status: Former Types: Cigarettes Smokeless tobacco: Current Substance Use Topics Alcohol use: Yes Comment: History of alcohol abuse, reports no use in 3 week- typically endorses use as 4 glasses ofwine a days Allergies[1] Scheduled Meds: albumin human 25% (12.5 g/ 50 mL) 12.5 g Intravenous Q30 Min cefTRIAXone (ROCEPHIN) IVPB 2 g Intravenous Once cholestyramine 4 g Oral Daily 0900 folic acid 1 mg Oral Daily 0900 heparin 5,000 Units Subcutaneous 3 times per day lactulose 20 g Oral QID levothyroxine 75 mcg Oral QAM AC midodrine 15 mg Oral TID octreotide acetate (SANDOSTATIN) SQ/IM injection 200 mcg Subcutaneous TID pantoprazole 40 mg Oral QAM AC rifAXIMin 550 mg Oral BID sodium bicarbonate 1,300 mg Oral TID thiamine (vitamin B1) IV orderable 200 mg Intravenous Q8H zinc sulfate 220 mg Oral Daily 0900 Continuous Infusions: PRN Meds: acetaminophen, lactulose, lactulose, ondansetron, [Held by provider] traMADoL Prior to Admission Meds: Home Medications Medication Sig Taking? Last Dose cholestyramine-aspartame (PREVALITE) 4 gram Powd bulk Mix one scoop with 4-6 ounces of water and drink by mouth daily. folic acid (FOLVITE) 1 MG tablet Take 1 tablet (1 mg total) by mouth daily. lactulose (CHRONULAC) 10 gram/15 mL solution Take 30 mLs (20 g total) by mouth 3 times a day as needed (goal 2-3 bowel movements a day). levothyroxine (SYNTHROID) 75 MCG tablet Take 1 tablet (75 mcg total) by mouth every morning before breakfast. pantoprazole (PROTONIX) 40 MG tablet Take 1 tablet (40 mg total) by mouth every morning before breakfast. potassium chloride (KLOR-CON M20) 20 MEQ tablet Take 2 tablets (40 mEq total) by mouth daily. rifAXIMin (XIFAXAN) 550 mg Tab tablet Take 1 tablet (550 mg total) by mouth 2 times a day. sodium bicarbonate 650 MG tablet Take 2 tablets (1,300 mg total) by mouth 3 times a day. thiamine HCl (VITAMIN B-1) 100 MG tablet Take 1 tablet (100 mg total) by mouth daily. traMADoL (ULTRAM) 50 mg tablet Take 1 tablet (50 mg total) by mouth every 12 hours as needed for Pain (Pain). zinc sulfate (ZINCATE) 50 mg zinc (220 mg) capsule Take 1 capsule (220 mg total) by mouth daily. Vitals: Temp: [97.6 ??F (36.4 ??C)-98.6 ??F (37 ??C)] 97.6 ??F (36.4 ??C) Heart Rate: [75-118] 77 Resp: [9-23] 11 BP: (90-134)/(43-92) 125/59 Intake/Output Summary (Last 24 hours) at 09/04/2024 0735 Last data filed at 09/03/20242044 Gross per 24 hour Intake 2823.65 ml Output 250 ml Net 2573.65 ml Physical Exam Gen: NAD, resting in bed HEENT: icteric sclera, EOMI Neck: Neck is supple. CV: RRR Lungs: Non-labored breathing Abdomen: Soft, distended. Generalized mild abdominal tenderness. No RUQ tenderness to palpation. Skin: Jaundiced Ext: Trace LE edema Neuro: Oriented to person, place, situation, month. No focal deficits. No asterixis. Psych: appropriate mood and affect Laboratory and Imaging: Reviewed MELD 3.0: 43 at 09/04/2024 5:22 AM Calculated from: Serum Creatinine: 3.21 mg/dL (Using max of 3 mg/dL) at 09/04/2024 5:22 AM Serum Sodium: 132 mmol/L at 09/04/2024 5:22 AM Total Bilirubin: 25.5 mg/dL at 09/04/2024 5:22 AM Serum Albumin: 3.2 g/dL at 09/04/2024 5:22 AM INR(ratio): 3 at 09/04/2024 5:22 AM Age at listing (hypothetical): 39 years Sex: Male at 09/04/2024 5:22 AM Assessment: Julien Anderson is a 39 y.o. male with PMHx EtOH cirrhosis d/b HE, ascites, jaundice, also with small non-bleeding EV, recent alcohol-associated hepatitis, RCC s/p treatment and c/f congenital renal disorder, HTN, HLD, CKD4. No evidence of infection or bleeding prompting decompensation, continue with supportive care. Non-candidate for inpatient transplant evaluation. PLAN / RECOMMENDATIONS: #Decompensated EtOH cirrhosis #Acute on chronic liver failure #Jaundice - Daily MELD labs, urine sodium - T bili downtrending - INR up to 3, no bleeding, recommend Vitamin K 10mg IV x3d #Ascites #Abdominal pain - Para 09/03 in ED with 1L off. Total nucleated cells of 9, no organisms on Gram stain, culture pending. No signs SBP. - Unclear etiology of generalized abd pain, likely related to ascites and overall liver dysfunction. - Can take off 4 L w/ paracentesis as needed #HRS-CKD (previously type II HRS) - NADIYA on CKD last admission responsive to albumin challenge, although some features were inconsistent with HRS. - can stop octreotide at this time. 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 PETH negative 08/19/24 - Not a candidate for inpatient transplant evaluation. Would require 12 weeks of chemical dependency outpatient to be eligible for transplant evaluation. Was supposed to have appointment with social work outpatient on day of admission. Discussed prognosis with patient and family at beside. Ongoing discussions regarding goals of care, hold on palliative consult for now, patient and family express strong desire to do everything possible to make it to pretransplant evaluation. We will continue to follow along. Please reach out (preferably Epic Secure Chat) if there are any questions or concerns. If you have any questions, please contact the Liver fellow on-call. Assessment and plan discussed with Dr. Soto. Leatha Ceja, MS4 Hepatology [1] Allergies Allergen Reactions Adhesive Itching and Rash Tegaderm adhesive on Ivs, pt states its tolerable Duloxetine Other (See Comments) Became Manic Cosigned by Lino Soto MD at 09/04/2024 2:04 PM EDT Associated attestation - Lino Soto MD - 09/04/2024 2:04 PM EDT Attending Physician's Note: I was present with the medical student and have personally performed the physical exam and medical decision making. I have reviewed the medical student???s note and agree with their assessment and plan. 39 y.o. male with fdc history of alcoholic liver disease, jaundice, ascites, hepatic encephalopathy, sober since May 2024, admitted with abdominal pain and weakness. Liver labs are improved. Has acute kidney injury on top of chronic kidney disease. Infectious work up negative so far. Symptomsare better since admission PE Vitals: 09/04/24 1000 09/04/24 1030 09/04/24 1100 09/04/24 1350 BP: 126/63 130/54 115/55 126/65 BP Location: Left upper arm Patient Position: Lying BP Cuff Size: Regular Pulse: 89 81 81 74 Resp: 16 13 14 Temp: 97.5 ??F (36.4 ??C) TempSrc: Axillary SpO2: 92% 100% 100% 95% Weight: Appears frail Sclera icteric Abdomen is distended, firm, mild roge-umbilical tenderness Alert and oriented times three, no asterixis Trace LE edema A&P 39 y.o. year old male with complex medical issues as detailed in HPI. Labs do not suggest acute on chronic liver failure. SBP, UA and CXR negative. In fact bilirubin is improving. Mild NADIYA, wll treatwith IV Albumin. Vitamin K for nutritional deficiency. Patient currently undergoing outpatient chemical dependency treatment (4 weeks complete of planned 12 weeks). Once this is complete, will be seen in transplant clinic for medical testing. Lino Soto MD GI and Hepatology Staff documented in this encounter Nursing Notes * Krista Bernard RN - 09/07/2024 9:30 PM EDT Patient has a Mepilex on the left, lateral abdomen from a previous paracentesis. Dressing is saturated with serous drainage. Dressing removed, steri strip is in place horizontally over the insertion site. Area was cleaned with NS and patted dry. Mepilex border was placed over the site. * Yolette Yang RN - 09/06/2024 11:05 AM EDT Pt complaining of itching and hives shortly after rocephin and vit k administration. 1x benadryl ordered. Patient also notified staff that stool was beginning to have streaks of bright red blood. This RN observed loose stool with small amount of blood. MD notified. * Minh Torres RN - 09/06/2024 5:57 AM EDT Patient educated multiple times about the importance of using his urinal to measure urine output overnight. Urinal was not used overnight. Patient states that he had approx 10 occurrences each of urine and stool. * Minh Torres RN - 09/04/2024 10:47 PM EDT Informed patient that they were identified as a high fall risk patient and educated on the importance of a bed/chair alarm. Having an alarm placed helps to notify staff to come to room to check on patient when alerting. Patient was educated on risk for fall with possible injury and verbalize understanding but continues to refuse alarm. * Gudelia Rosenbaum RN - 09/03/2024 4:53 AM EDT Pt presents to [facility] with c/o abdominal pain. Pt has history of alcoholic cirrhosis and supposed to have an appt with liver team this morning at 0930. Pt reports pain as 10/10 and states this is the worst his pain has been. documented in this encounter ED Notes * Amber Cazares RN - 09/04/2024 8:25 PM EDT Ready and clean bed assigned to [id number]. Pt updated on plan of care including transfer and is agreeable. Receiving RN may call [phone] to consult ED RN with questions regarding patients care. Pt is leaving the department in stable condition with all personal items in possession. Ordered medications that have been received from Pharmacy will not be tubed to receiving unit. The patient does not have a patient monitor at bedside in the ED. Most recent vitals: BP 128/57 (BP Location: Right upper arm, Patient Position: Lying, BP Cuff Size:Regular) Pulse 75 Temp 97.5 ??F (36.4 ??C) (Axillary) Resp 11 Wt (!) 261 lb 3.9 oz (118.5 kg) SpO2 100% BMI 31.80 kg/m?? AMBER CAZARES RN * Amber Cazares RN - 09/04/2024 7:50 PM EDT Pt sleeping comfortably in bed. Patient on continuous cardiac and Sp02 monitoring on RA. Bed in lowest and locked position, call light in reach. No obvious signs of distress, equal rise and fall of chest. Will continue to monitor. * Kirt Dyson RN - 09/04/2024 5:42 PM EDT Straight Cath order obtained however pt refusing straight cath at this time. States he will notify RN if distention becomes uncomfortable and is unable to relieve pressure. * Kirt Dyson RN - 09/04/2024 5:28 PM EDT Pt bladder scanned after voiding 175ml for a residual of 329ml. MD Santo notified of retention. * Ron Esqueda RN - 09/04/2024 4:57 PM EDT Pt states he has had over 3 bowel movements today * Kirt Dyson RN - 09/04/2024 4:49 PM EDT Pt endorsing urine retention. States he feels like he needs to urinate but is only able to void a small amount. Provided urinal and instructed to urinate as much as possible. Plan for bladder scan for residual. * Kirt Dyson RN - 09/04/2024 4:37 PM EDT Pt returned from IR. * Kirt Dyson RN - 09/04/2024 2:31 PM EDT Pt to IR in stable condition. * Kirt Dyson RN - 09/04/2024 1:58 PM EDT IR called stating they would be calling for the pt shortly. * Kirt Dyson RN - 09/04/2024 1:49 PM EDT Pt endorses slight improvement in urticaria. Updated on MD discussion. Resting comfortably in bed. * Ron Esqueda RN - 09/04/2024 1:22 PM EDT Team stated they didn't think benadryl would do anything for the patient and that if it didn't get better to let them know and they would contact hepatology. * Ron Esqueda RN - 09/04/2024 1:15 PM EDT Pt itching all over team paged to see about benadryl * Ron Esqueda RN - 09/04/2024 11:58 AM EDT Area where pt had paracentesis was bleeding slightly. Pt cleaned up and gauze and tape applied * Tamica Coffey RN - 09/04/2024 6:45 AM EDT Pt ambulated to the bathroom for BM. Diarrhea noted * Tamica Coffey RN - 09/03/2024 10:50 PM EDT Pt ambulated to bathroom and reported to have a BM. * Maria Del Carmen Don RN - 09/03/2024 7:02 PM EDT Pt had bowel movement. No signs of blood in stool. Able to ambulate to bathroom with assistance. * Maria Del Carmen Don RN - 09/03/2024 5:31 PM EDT Pt more awake and alert than earlier. BP improving, 124/60 (75) most recent. Pt's family member assisting him with ordering meal. * Maria Del Carmen Don RN - 09/03/2024 5:00 PM EDT Pt encouraged to try to urinate * Maria Del Carmen Don RN - 09/03/2024 4:11 PM EDT aware pt's MAP is <70 * Maria Del Carmen Don RN - 09/03/2024 3:52 PM EDT Admitting team notified about pt's MAP remaining <70 * Maria Del Carmen Don RN - 09/03/2024 3:25 PM EDT Pt continues to receive albumin and received midodrine (see MAR) to assist with increasing BP. LastBP 111/54. Mental status remains unchanged. No signs of acute distress. * Maria Del Carmen Don RN - 09/03/2024 2:08 PM EDT Pt had large bowel movement. Mostly liquid with some solid pieces. No evidence of blood in stool. * Maria Del Carmen Don RN - 09/03/2024 2:01 PM EDT Pharmacy messaged previously about missing dose of albumin. Just now delivered. * Maria Del Carmen Don RN - 09/03/2024 1:49 PM EDT Spoke with MD on phone about BP and bloody drainage on paracentesis dressing. Awaiting order for fluid bolus order * Maria Del Carmen Don RN - 09/03/2024 1:46 PM EDT Hospitalist 4 team x2 about pt's downtrending BP * Maria Del Carmen Don RN - 09/03/2024 1:33 PM EDT Decrease in BP to 94/48. No changes in mental status. Some fresh blood present on bandage, not uncontrolled. Admitting team paged to notify * Maria Del Carmen Don RN - 09/03/2024 12:52 PM EDT Pt vomiting after eating. * Maria Del Carmen Don RN - 09/03/2024 12:10 PM EDT Pt given menu and instructions on ordering. Family at bedside * Maria Del Carmen Don RN - 09/03/2024 10:46 AM EDT Pt returned from ultrasound. Resting in bed. Remains drowsy, answers orientation questions properly. No signs of acute distress. Some blood present around paracentesis site. Bleeding controlled with bandage. No signs of obvious external hemorrhage. * Maria Del Carmen Don RN - 09/03/2024 10:25 AM EDT Pt at ultrasound * Maria Del Carmen Don RN - 09/03/2024 10:17 AM EDT Admitting team at bedside * Maria Del Carmen Don RN - 09/03/2024 9:08 AM EDT Pt resting in bed. VSS. Family member at bedside updated on plan to admit pt. * Maria Del Carmen Don RN - 09/03/2024 7:23 AM EDT Introduced self to pt. Respirations easy and unlabored. Drowsy and oriented x4. Jaundiced skin. Abdgrossly distended and tender to palpation. Hx of chirrosis x2 years. Pt's at bedside states she has not noticed confusion. States pt has had diarrhea from taking lactulose. Denies chest pain butdoes endorse some SOB from pressure of abd distension on lungs. No signs of acute distress. * Simeon Hansen RN - 09/03/2024 6:48 AM EDT Micro called for clarification of paracentesis fluid. Placed in orange specimen cup and 2 lavender tops as directed by label folder. Labs being walked up to micro by RN * Simeon Hansen RN - 09/03/2024 6:19 AM EDT MD at bedside performing abd fluid drain * Simeon Hansen RN - 09/03/2024 6:18 AM EDT Lab called with critical K of 2.6. MD notified and aware * Simeon Hansen RN - 09/03/2024 5:39 AM EDT Prolonged QTC noted on EKG. MD and Attending notified and aware * Simeon Hansen RN - 09/03/2024 5:25 AM EDT Pt placed on continuous monitoring, even unlabored breathing, bed in lowest position, call light within reach, provided with warm blankets. No other requests at this time. documented in this encounter Miscellaneous Notes * Plan of Care - Capri Schwarz RN - 09/09/2024 1:26 PM EDT Problem: Acute Pain Description: Patient's pain progressing toward patient's stated pain goal Goal: Patient displays improved well-being such as baseline levels for pulse, BP, respirations and relaxed muscle tone or body posture Outcome: Progressing Goal: Patient will manage pain with the appropriate technique/intervention Description: Assess and monitor patient's pain using appropriate pain scale. Collaborate with interdisciplinary team and initiate plan and interventions as ordered. Re-assess patient's pain level 30-60 minutes after pain management intervention. Outcome: Progressing Goal: Patient will reduce or eliminate use of analgesics Outcome: Progressing Problem: Acute Pain Description: Patient's pain progressing toward patient's stated pain goal Goal: Patient will manage pain with the appropriate technique/intervention Description: Assess and monitor patient's pain using appropriate pain scale. Collaborate with interdisciplinary team and initiate plan and interventions as ordered. Re-assess patient's pain level 30-60 minutes after pain management intervention. Outcome: Progressing * Plan of Care - Capri Schwarz RN - 09/09/2024 1:23 PM EDT Problem: High Fall Risk Precautions Goal: High Fall Risk Precautions Outcome: Progressing Problem: Safety Goal: Patient will be injury free during hospitalization Description: Assess and monitor vitals signs, neurological status including level of consciousness and orientation. Assess patient's risk for falls and implement fall prevention plan of care and interventions per hospital policy. Ensure arm band on, uncluttered walking paths in room, adequate room lighting, call light and overbed table within reach, bed in low position, wheels locked, side rails up per policy, and non-skid footwear provided. Outcome: Progressing Goal: Patient with weight > 350lbs will have appropriate equipment Description: Consider ordering Bariatric Bed, Chair and Bedside Commode for patient weight > 350lbs. Outcome: Progressing Problem: Patient will remain free of falls Goal: [place] Fall Precautions Outcome: Progressing * Plan of Care - Lydia Harrison RN - 09/09/2024 2:00 AM EDT Problem: High Fall Risk Precautions Goal: High Fall Risk Precautions Outcome: Progressing Problem: Patient will remain free of falls Goal: [place] Fall Precautions Outcome: Progressing Problem: Psychosocial Needs Goal: Demonstrates ability to cope with hospitalization/illness Description: Assess and monitor patients ability to cope with his/her illness. Outcome: Progressing * Plan of Care - Cleveland Villalta RN - 09/09/2024 1:45 AM EDT Problem: Safety Goal: Patient will be injury free during hospitalization Description: Assess and monitor vitals signs, neurological status including level of consciousness and orientation. Assess patient's risk for falls and implement fall prevention plan of care and interventions per hospital policy. Ensure arm band on, uncluttered walking paths in room, adequate room lighting, call light and overbed table within reach, bed in low position, wheels locked, side rails up per policy, and non-skid footwear provided. Outcome: Progressing Goal: Patient with weight > 350lbs will have appropriate equipment Description: Consider ordering Bariatric Bed, Chair and Bedside Commode for patient weight > 350lbs. Outcome: Progressing Problem: Daily Care Goal: Daily care needs are met Description: Assess and monitor ability to perform self care and identify potential discharge needs. Outcome: Progressing Problem: Psychosocial Needs Goal: Demonstrates ability to cope with hospitalization/illness Description: Assess and monitor patients ability to cope with his/her illness. Outcome: Progressing Goal: Collaborate with patient/family to identify patient's goals Outcome: Progressing * Care Coordination - Javan Schultz RN - 09/08/2024 1:03 PM EDT [facility] Case Management/Social Work Department Progress Note Patient Information Patient Name: Julien Anderson Hospital day: 5 Inpatient/Observation: Inpatient Level of Care: Floor Admit date: 09/03/2024 Admission diagnosis: Alcoholic cirrhosis of liver with ascites (CMS-HCC) [K70.31] Abdominal pain, unspecified abdominal location [R10.9] PMH: has a past medical history of Alcoholic cirrhosis of liver (CMS-HCC), Alcoholic hepatitis, Esophageal varices (CMS-HCC), Hepatorenal syndrome (CMS- HCC), Hypertension, Other hyperlipidemia (07/26/2024), Renal cell carcinoma (CMS-HCC), Thrombocytopenia (CMS-HCC), and Thyroid disease. PCP: Enedina Mcguire NP Home Pharmacy: [facility] [id number] [facility] [address] [place] [id number] [address] [address] [facility] [address] [facility] [id number] Medical Insurance Coverage: Payor: [employer] Occipital / Plan: [facility] GLOBAL / Product Type: *No Producttype* / Other Pertinent Information RN TAYLOR received an update from medical team. Per team pt is not MR for discharge today. Pt with complaint of belly pain. Paracentesis scheduled for today with IR. C-diff and enteric pathogen panel to be performed today. Discharge Plan Anticipated discharge plan: Home NN Anticipated discharge date: 09/10/24 CM/SW will continue to follow and remain available for discharge planning needs. JAVAN SCHULTZ RN [phone] * Care Coordination - Kandy Fuentes - 09/07/2024 3:32 PM EDT Health Case Management/Social Work Department Progress Note Patient Information Patient Name: Julien Anderson Hospital day: 4 Inpatient/Observation: Inpatient Level of Care: floor Admit date: 09/03/2024 Admission diagnosis: Alcoholic cirrhosis of liver with ascites (CMS-HCC) [K70.31] Abdominal pain, unspecified abdominal location [R10.9] PMH: has a past medical history of Alcoholic cirrhosis of liver (CMS-HCC), Alcoholic hepatitis, Esophageal varices (CMS-HCC), Hepatorenal syndrome (CMS- HCC), Hypertension, Other hyperlipidemia (07/26/2024), Renal cell carcinoma ([facility]-HCC), Thrombocytopenia ([facility]-HCC), and Thyroid disease. PCP: Enedina Mcguire NP Home Pharmacy: [facility] [id number] [place] [address] [facility] [address] [facility] [id number] Medical Insurance Coverage: Payor: [facility] / Plan: [facility] / Product Type: *No Producttype* / Other Pertinent Information RN/CM received update from team and completed chart review. Pt is not medically ready for discharge. LE edema, leaking from para site Repeat BMP and K repletion Renal consulted Discharge Plan Anticipated discharge plan: home Anticipated discharge date: 09/09/24 CM/SW will continue to follow and remain available for discharge planning needs. Kandy BAE RNCM * Plan of Care - Yolette Yang RN - 09/07/2024 11:19 AM EDT Problem: High Fall Risk Precautions Goal: High Fall Risk Precautions Outcome: Progressing Problem: Safety Goal: Patient will be injury free during hospitalization Description: Assess and monitor vitals signs, neurological status including level of consciousness and orientation. Assess patient's risk for falls and implement fall prevention plan of care and interventions per hospital policy. Ensure arm band on, uncluttered walking paths in room, adequate room lighting, call light and overbed table within reach, bed in low position, wheels locked, side rails up per policy, and non-skid footwear provided. Outcome: Progressing Goal: Patient with weight > 350lbs will have appropriate equipment Description: Consider ordering Bariatric Bed, Chair and Bedside Commode for patient weight > 350lbs. Outcome: Progressing Problem: Patient will remain free of falls Goal: [place] Fall Precautions Outcome: Progressing Problem: Daily Care Goal: Daily care needs are met Description: Assess and monitor ability to perform self care and identify potential discharge needs. Outcome: Progressing Problem: Psychosocial Needs Goal: Demonstrates ability to cope with hospitalization/illness Description: Assess and monitor patients ability to cope with his/her illness. Outcome: Progressing Goal: Collaborate with patient/family to identify patient's goals Outcome: Progressing Problem: Discharge Barriers Goal: Patient's discharge needs are met Description: Collaborate with interdisciplinary team and initiate plans and interventions as needed. Outcome: Progressing * Plan of Care - Baudilio Macario RN - 09/06/2024 9:41 PM EDT Problem: Safety Goal: Patient will be injury free during hospitalization Description: Assess and monitor vitals signs, neurological status including level of consciousness and orientation. Assess patient's risk for falls and implement fall prevention plan of care and interventions per hospital policy. Ensure arm band on, uncluttered walking paths in room, adequate room lighting, call light and overbed table within reach, bed in low position, wheels locked, side rails up per policy, and non-skid footwear provided. 09/06/20242140 by Baudilio Macario RN Outcome: Progressing 09/06/20242140 by Baudilio Macario RN Reactivated Goal: Patient with weight > 350lbs will have appropriate equipment Description: Consider ordering Bariatric Bed, Chair and Bedside Commode for patient weight > 350lbs. 09/06/20242140 by Baudilio Macario RN Outcome: Progressing 09/06/20242140 by Baudilio Macario RN Reactivated Problem: Patient will remain free of falls Goal: [place] Fall Precautions 09/06/20242140 by Baudilio Macario RN Outcome: Progressing 09/06/20242140 by Baudilio Macario RN Reactivated Problem: Daily Care Goal: Daily care needs are met Description: Assess and monitor ability to perform self care and identify potential discharge needs. 09/06/20242140 by Baudilio Macario RN Outcome: Progressing 09/06/20242140 by Baudilio Macario RN Reactivated Problem: Psychosocial Needs Goal: Demonstrates ability to cope with hospitalization/illness Description: Assess and monitor patients ability to cope with his/her illness. 09/06/20242140 by Baudilio Macario RN Outcome: Progressing 09/06/20242140 by Baudilio Macario RN Reactivated Goal: Collaborate with patient/family to identify patient's goals 09/06/20242140 by Baudilio Macario RN Outcome: Progressing 09/06/20242140 by Baudilio Macario RN Reactivated Problem: Discharge Barriers Goal: Patient's discharge needs are met Description: Collaborate with interdisciplinary team and initiate plans and interventions as needed. 09/06/20242140 by Baudilio Macario RN Outcome: Progressing 09/06/20242140 by Baudilio Macario RN Reactivated * Plan of Care - Yolette Yang RN - 09/06/2024 2:25 PM EDT Problem: High Fall Risk Precautions Goal: High Fall Risk Precautions Outcome: Progressing * Plan of Care - Yolette Yang RN - 09/05/2024 12:54 PM EDT Problem: High Fall Risk Precautions Goal: High Fall Risk Precautions Outcome: Progressing * Care Coordination - Abiola Marshall RN - 09/05/2024 10:03 AM EDT [facility] Case Management/Social Work Department Progress Note Patient Information Patient Name: Julien Anderson Hospital day: 2 Inpatient/Observation: Inpatient Level of Care: Floor Admit date: 09/03/2024 Admission diagnosis: Alcoholic cirrhosis of liver with ascites (CMS-HCC) [K70.31] Abdominal pain, unspecified abdominal location [R10.9] PMH: has a past medical history of Alcoholic cirrhosis of liver (CMS-HCC), Alcoholic hepatitis, Esophageal varices (CMS-HCC), Hepatorenal syndrome (CMS- HCC), Hypertension, Other hyperlipidemia (07/26/2024), Renal cell carcinoma (CMS-HCC), Thrombocytopenia (CMS-HCC), and Thyroid disease. PCP: Enedina Mcguire NP Home Pharmacy: [facility] [address] [place] [address] [facility] [address] [id number] Medical Insurance Coverage: Payor: [facility] / Plan: [facility] / Product Type: *No Producttype* / Other Pertinent Information Per team in interdisciplinary rounds, patient is not medically ready for discharge today. SBP and cirrhosis, IV ATB; renal consulted for NADIYA, receiving albumin. Discharge Plan Anticipated discharge plan: Home Anticipated discharge date: 09/08 CM/SW will continue to follow and remain available for discharge planning needs. Abiola Marshall RN/[employer]er[employer] Services [phone] * Plan of Care - iMnh Torres RN - 09/05/2024 12:50 AM EDT Problem: High Fall Risk Precautions Goal: High Fall Risk Precautions Outcome: Progressing documented in this encounter Plan of Treatment Upcoming Encounters Date Type Department Care Team (Late st Contact Info) Description 12/05/2024 8:01 AM EDT Hospital Encounter [facility] ENDOSCOPY [address] [place] [phone] Chris Orosco MD [address] [place] [phone] 12/05/2024 8:01 AM EDT - 12/05/2024 8:31 AM EDT Surgery [facility] ENDOSCOPY [address] [place] [phone] Chris Orosco MD [address] [place] [phone] EGD Scheduled Procedures Name Priority Associated Diagnoses Date/Ti me EGD Cirrhosis of liver with ascites, unspecified hepatic cirrhosis type (CMS-HCC) 12/05/2024 8:01 AM EDT documented as of this encounter Procedures Procedure Name Priority Date/Time Associated Diagnosis Comments EKG - SCAN 09/10/2024 7:11 AM EDT BODY FLUID CULTURE PLUS STAIN Routine 09/09/2024 2:57 PM EDT ANAEROBIC CULTURE Routine 09/09/2024 2:5 6 PM EDT BODY FLUID CELL COUNT STAT 09/09/2024 2:56 PM EDT PARACENTESIS Routine 09/09/2024 2:19 PM EDT HEPATIC FUNCTION PANEL Routine 6:12 AM EDT RENAL FUNCTION PANEL W/EGFR Routine 09/09/2024 6:12 AM EDT PROTIME-INR Routine 09/09/2024 6:12 AM EDT CBC Routine 09/09/2024 6:12 AM EDT MAGNESIUM Routine 09/09/2024 6:12 AM EDT ENTERIC PATHOGEN PANEL Routine 4:58 AM EDT CLOSTRIDIUM DIFFICILE DNA AMPLIFICATION Routine 09/09/2024 4:58 AM EDT CLOSTRIDIUM DIFFICILE TOXIN A/B ANTIGEN Routine 09/09/2024 4:58 AM EDT RENAL FUNCTION PANEL W/EGFR Timed 09/08/2024 3:50 PM EDT RENAL FUNCTION PANEL W/EGFR Routine 09/08/2024 2:08 PM EDT HEPATIC FUNCTION PANEL Routine 4:05 AM EDT RENAL FUNCTION PANEL W/EGFR Routine 09/08/2024 4:05 AM EDT PROTIME-INR Routine 09/08/2024 4:05 AM EDT CBC Routine 09/08/2024 4:05 AM EDT MAGNESIUM Routine 09/08/2024 4:05 AM EDT RENAL FUNCTION PANEL W/EGFR Timed 09/07/2024 3:36 PM EDT HEPATIC FUNCTION PANEL Routine 3:42 AM EDT RENAL FUNCTION PANEL W/EGFR Routine 09/07/2024 3:42 AM EDT PROTIME-INR Routine 09/07/2024 3:42 AM EDT CBC Routine 09/07/2024 3:42 AM EDT MAGNESIUM Routine 09/07/2024 3:42 AM EDT RENAL FUNCTION PANEL W/EGFR Timed 09/06/2024 4:37 PM EDT CBC Routine 09/06/2024 4:37 PM EDT HEPATIC FUNCTION PANEL Routine 4:30 AM EDT RENAL FUNCTION PANEL W/EGFR Routine 09/06/2024 4:30 AM EDT PROTIME-INR Routine 09/06/2024 4:30 AM EDT CBC Routine 09/06/2024 4:30 AM EDT MAGNESIUM Routine 09/06/2024 4:30 AM EDT HEPATIC FUNCTION PANEL Routine 7:24 AM EDT PROTIME-INR Routine 09/05/2024 7:24 AM EDT CBC Routine 09/05/2024 7:24 AM EDT PHOSPHORUS Routine 09/05/2024 7:24 AM EDT MAGNESIUM Routine 09/05/2024 7:24 AM EDT BASIC METABOLIC PANEL Routine 09/05/2024 7:24 AM EDT ECG 12-LEAD (MUSE) Routine 09/05/2024 4: 57 AM EDT EKG - SCAN 09/05/2024 3:27 AM EDT CARISA RHYTHM STRIP - SCAN 09/04/2024 11:22 PM EDT LACTIC ACID Timed 09/04/2024 4:21 PM EDT MAGNESIUM Timed 09/04/2024 4:21 PM EDT BASIC METABOLIC PANEL Timed 09/04/2024 4:21 PM EDT IR PARACENTESIS INCLUDING IMAGING GUIDANCE Routine 09/04/2024 3:55 PM EDT FLUID CREATININE Routine 09/04/2024 11:0 1 AM EDT BODY FLUID CULTURE PLUS STAIN Routine 09/04/2024 11:01 AM EDT BODY FLUID CELL COUNT Routine 09/04/2024 11:01 AM EDT PROTEIN, BODY FLUID Routine 09/04/2024 1 1:01 AM EDT ALBUMIN, FLUID Routine 09/04/2024 11:01 AM EDT AFP TUMOR MARKER Add-On 09/04/2024 10:3 2 AM EDT HEPATIC FUNCTION PANEL Routine 5:22 AM EDT CALCIUM FREE, SERUM Routine 09/04/2024 5 :22 AM EDT PROTIME-INR Routine 09/04/2024 5:22 AM EDT CBC Routine 09/04/2024 5:22 AM EDT PHOSPHORUS Routine 09/04/2024 5:22 AM EDT MAGNESIUM Routine 09/04/2024 5:22 AM EDT LIPASE Add-On 09/04/2024 5:22 AM EDT BASIC METABOLIC PANEL Routine 09/04/2024 5:22 AM EDT MAGNESIUM Timed 09/04/2024 2:20 AM EDT BASIC METABOLIC PANEL Timed 09/04/2024 2:20 AM EDT MAGNESIUM Timed 09/03/2024 9:50 PM EDT BASIC METABOLIC PANEL Timed 09/03/2024 9:50 PM EDT MAGNESIUM Timed 09/03/2024 6:16 PM EDT BASIC METABOLIC PANEL Timed 09/03/2024 6:16 PM EDT VENOUS BLOOD GAS, LINE/SYRINGE Timed 09/03/2024 5:26 PM EDT CBC Timed 09/03/2024 5:26 PM EDT MRSA/STAPH AUREUS DNA - DIAGNOSTIC TESTING FOR PNEUMONIA Routine 09/03/2024 3:21 PM EDT VENOUS BLOOD GAS, LINE/SYRINGE Timed 09/03/2024 3:21 PM EDT URINE DRUG SCREEN WITHOUT CONFIRMATION, STAT Routine 09/03/2024 3:21 PM EDT UREA NITROGEN, URINE Add-On 09/03/2024 3:21 PM EDT SODIUM, URINE, RANDOM Add-On 09/03/2024 3:21 PM EDT POTASSIUM, URINE, RANDOM Add-On 09/03/2024 3:21 PM EDT CREATININE, URINE, RANDOM Add-On 09/03/2024 3:21 PM EDT CHLORIDE, URINE, RANDOM Add-On 09/03/2024 3:21 PM EDT MAGNESIUM Timed 09/03/2024 3:21 PM EDT BASIC METABOLIC PANEL Timed 09/03/2024 3:21 PM EDT LACTIC ACID Timed 09/03/2024 1:43 PM EDT HEPATITIS B CORE IGM Routine 09/03/2024 1:43 PM EDT HEPATITIS A IGM Routine 09/03/2024 1:43 PM EDT ETHANOL, SERUM Timed 09/03/2024 1:43 PM EDT HEPATITIS C ANTIBODY Routine 09/03/2024 1:43 PM EDT HEPATITIS B SURFACE ANTIGEN Routine 09/03/2024 1:43 PM EDT TSH Routine 09/03/2024 1:43 PM EDT T4, FREE Timed 09/03/2024 1:43 PM EDT MAGNESIUM Timed 09/03/2024 1:43 PM EDT BASIC METABOLIC PANEL Timed 09/03/2024 1:43 PM EDT XR PORTABLE CHEST Routine 09/03/2024 1:1 9 PM EDT PHOSPHORUS STAT 09/03/2024 10:49 AM EDT MAGNESIUM STAT 09/03/2024 10:49 AM EDT BASIC METABOLIC PANEL STAT 09/03/2024 10:49 AM EDT US DUPLEX [id number] COMPLETE STAT 09/03/2024 10:30 AM EDT US ABDOMEN COMPLETE STAT 09/03/2024 1 0:30 AM EDT URINALYSIS, MICROSCOPIC STAT 09/03/2024 10:28 AM EDT URINALYSIS-MACROSCOPIC W/REFLEX TO MICROSCOPIC STAT 09/03/2024 10:28 AM EDT BLOOD CULTURE-PERIPHERAL STAT 09/03/2024 8:10 AM EDT LACTIC ACID, VENOUS, WHOLE BLOOD STAT 09/03/2024 7:55 AM EDT BLOOD CULTURE-PERIPHERAL STAT 09/03/2024 7:55 AM EDT HIGH SENSITIVITY TROPONIN STAT 09/03/2024 7:18 AM EDT PARACENTESIS Routine 09/03/2024 7:01 AM EDT BODY FLUID CULTURE PLUS STAIN STAT 09/03/2024 6:46 AM EDT BODY FLUID CELL COUNT STAT 09/03/2024 6:46 AM EDT PROTEIN, BODY FLUID STAT 09/03/2024 6 :46 AM EDT ALBUMIN, FLUID STAT 09/03/2024 6:46 AM EDT XR PORTABLE CHEST TAMIR 09/03/2024 6:[address] ABDOMEN AND PELVIS WITH IV CONTRAST TAMIR 09/03/2024 5:57 AM EDT PROTIME-INR STAT 09/03/2024 5:35 AM EDT ED ECG 12-LEAD (MUSE) STAT 09/03/2024 5:32 AM EDT HIGH SENSITIVITY TROPONIN STAT 09/03/2024 5:29 AM EDT HEPATIC FUNCTION PANEL STAT 5:29 AM EDT DIFFERENTIAL STAT 09/03/2024 5:29 AM EDT CBC STAT 09/03/2024 5:29 AM EDT MAGNESIUM STAT 09/03/2024 5:29 AM EDT LIPASE STAT 09/03/2024 5:29 AM EDT BASIC METABOLIC PANEL STAT 09/03/2024 5:29 AM EDT AMMONIA Add-On 09/03/2024 5:25 AM EDT documented in this encounter Results * EKG - scan (09/10/2024 7:11 AM EDT) us Scanning Uchhim SCAN DOCS - NO RESULTS Final Res ult * Body Fluid Culture plus Stain (09/09/2024 2:57 PM EDT) Gram Stain Result Cytospin Results: [facility] Gram Stain Result Polymorphonuclear Leukocytes Seen; [facility] Gram Stain Result No Organisms Seen; [facility] Culture Result No Growth After 5 Days [facility] Paracentesis Fluid ABDOMINOPELVIC CAVITY STRUCTURE / Unknown 09/09/2024 2:57 PM EDT 09/09/2024 3:38 PM EDT us Ashley JACOME MICROBIOLOGY - GENERAL ORDERA BLES Final Result Performing Organization Address City/[facility]/ZIP Co de Phone Number [facility] [address] * Anaerobic culture (09/09/2024 2:56 PM EDT) Culture Result No Anaerobes Isolated in 5 Days [facility] Peritoneal Fluid ABDOMEN / Unknown 2024 2:56 PM EDT 09/09/2024 4:12 PM EDT us Ashley JACOME MICROBIOLOGY - GENERAL ORDERA BLES Final Result Performing Organization Address [facility] Co de Phone Number [facility] [address] * Body Fluid Cell Count (09/09/2024 2:56 PM EDT) Color, Fluid Yellow 09/09/2024 5:27 PM EDT [facility] Clarity, Fluid Clear 09/09/2024 5:27 PM EDT [facility] Neutrophil %, Fluid 14 % 09/09/2024 5:27 PM EDT [facility] Lymphocytes %, Fluid 20 % 09/09/2024 5:27 PM EDT [facility] Mesothelial %, Fluid 5 % 09/09/2024 5:27 PM EDT [facility] Macrophage %, Fluid 61 % 09/09/2024 5:27 PM EDT [facility] RBC, Fluid 0 /uL 09/09/2024 5:27 PM EDT [facility] Total Nucleated Cells, Fluid 272 /uL 09/09/2024 5:27 PM EDT [facility] Comment:Total Nucleated Cell s represent WBCs and other nucleated cells in the fluid such as lining cells. Paracentesis Fluid ABDOMEN / Unknown 08/13 2:56 PM EDT 09/09/2024 3:38 PM EDT us Ashley JACOME BODY FLUIDS AND STOOLS ORDERA BLES Final Result [facility] [address] [facility]. [place] [id number], [facility] * PARACENTESIS (09/09/2024 2:19 PM EDT) Narrative Procedure Note NAA Rodriguez - 09/09/2024 2:19 PM EDT Paracentesis Procedure Note Date: 09/09/2024 Time: 2:20 PM Indication: Ascites Procedure: Diagnostic and Therapeutic Paracentesis Informed consent was obtained. Ultrasound was used to evaluate thepresence of peritoneal fluid. Optimal site marked LLQ . Under sterileconditions, 5 Fr/7cm Yueh catheter was inserted in a LLQ site after localanesthesia was administered using 1% lidocaine. 3.5 L of ascitic fluid wasremoved and sent for cell count and differential, aerobic and anaerobicculture. 50 g of 25% albumin to be ordered post-procedure. Discussed with primaryteam. Catheter pulled, area dressed with gauze and tegederm. Patient toleratedprocedure well without apparent complications. Clear to discharge from hepatology perspective. Patient has standing orderfor outpatient paracentesis by IR close to his home. Directed him to callto schedule paracentesis in 1 week. Has completed course of IV abx andwill transition to ciprofloxacin 500 mg daily at discharge for SBPprophylaxis. Will continue indefinitely. NAA RODRIGUEZ us Ashley JACOME PROCEDURE/MINOR SURGICAL ORDE RABLES Final Result * (ABNORMAL) Protime-INR, AM (09/09/2024 6:12 AM EDT) Protime 24.9(H) 12.1 - 15.1 seconds 09/09/2024 6:52 AM EDT [facility] INR 2.2(H) 0.9 - 1.1 09/09/2024 6:52 AM EDT [facility] Comment: RECOMMENDED THERAPEUTIC RANGES USING INR : Stable oral anticoagulant therapy: 2.0 - 3.0 Mechanical prosthetic heart valve: 2.5 - 3.5 Recurrent acute myocardial infarction: 2.5 - 3.5 Plasma 09/09/2024 6:12 AM EDT 09/09/2024 6:37 AM EDT Kathie Sanchez MD LAB BLOOD ORDERABLES Final Re sult Performing Organization Address [facility] Co de Phone Number [facility] [address] * (ABNORMAL) Hepatic Function Panel, AM (09/09/2024 6:12 AM EDT) Total Bilirubin 20.2(H) 0.0 - 1.5 mg/dL 09/09/2024 7:09 AM EDT [facility] Bilirubin, Direct 9.75(H) 0.00 - 0.40 mg/dL 09/09/2024 7:09 AM EDT [facility] AST 55(H) 13 - 39 U/L 09/09/2024 7:09 AM EDT [facility] ALT 26 7 - 52 U/L 09/09/2024 7:09 AM EDT [facility] Alkaline Phosphatase 152(H) 36 - 125 U/L 09/09/2024 7:09 AM EDT [facility] Total Protein 5.0(L) 6.4 - 8.9 g/dL 09/09/2024 7:09 AM EDT [facility] Albumin 3.7 3.5 - 5.7 g/dL 09/09/2024 7:09 AM EDT [facility] Bilirubin, Indirect 10.45(H) 0.00 - 1.10 mg/dL 09/09/2024 7:09 AM EDT [facility] Plasma 09/09/2024 6:12 AM EDT 09/09/2024 6:37 AM EDT Kathie Sanchez MD LAB BLOOD ORDERABLES Final Re sult [facility] [address] * (ABNORMAL) CBC, AM (09/09/2024 6:12 AM EDT) WBC 8.3 3.8 - 10.8 10E3/uL 09/09/2024 6:50 AM EDT [facility] RBC 2.34(L) 4.20 - 5.80 10E6/uL 09/09/2024 6:50 AM EDT [facility] Hemoglobin 8.7(L) 13.2 - 17.1 g/dL 09/09/2024 6:50 AM EDT [facility] Hematocrit 23.6(L) 38.5 - 50.0 % 09/09/2024 6:50 AM EDT [facility] MCV 100.9(H) 80.0 - 100.0 fL 09/09/2024 6:50 AM EDT [facility] MCH 37.3(H) 27.0 - 33.0 pg 09/09/2024 6:50 AM EDT [facility] MCHC 36.9(H) 32.0 - 36.0 g/dL 09/09/2024 6:50 AM EDT [facility] RDW 22.7(H) 11.0 - 15.0 % 09/09/2024 6:50 AM EDT [facility] Platelets 45(L) 140 - 400 10E3/uL 09/09/2024 6:50 AM EDT [facility] Comment:CNV MPV 8.6 7.5 - 11.5 fL 09/09/2024 6:50 AM EDT [facility] Whole Blood 09/09/2024 6:12 AM EDT 09/09/2024 6:37 AM EDT us Kathie Sanchez MD LAB BLOOD ORDERABLES Final Re sult [facility] [address] * Magnesium, AM (09/09/2024 6:12 AM EDT) Magnesium 1.7 1.5 - 2.5 mg/dL 09/09/2024 7:09 AM EDT [facility] Plasma 09/09/2024 6:12 AM EDT 09/09/2024 6:37 AM EDT Kathie Sanchez MD LAB BLOOD ORDERABLES Final Re sult [facility] [address] [place] [address], [facility] * (ABNORMAL) Renal Function Panel w/EGFR (09/09/2024 6:12 AM EDT) Sodium 135 133 - 146 mmol/L 09/09/2024 7:09 AM EDT [facility] Potassium 3.5 3.5 - 5.3 mmol/L 09/09/2024 7:09 AM EDT [facility] Chloride 110 98 - 110 mmol/L 09/09/2024 7:09 AM EDT [facility] CO2 15(L) 21 - 33 mmol/L 09/09/2024 7:09 AM EDT [facility] Anion Gap 10 3 - 16 mmol/L 09/09/2024 7:09 AM EDT [facility] BUN 30(H) 7 - 25 mg/dL 09/09/2024 7:09 AM EDT [facility] Creatinine 2.47(H) 0.60 - 1.30 mg/dL 09/09/2024 7:09 AM EDT [facility] Glucose 129(H) 70 - 100 mg/dL 09/09/2024 7:09 AM EDT [facility] Calcium 8.4(L) 8.6 - 10.3 mg/dL 09/09/2024 7:09 AM EDT [facility] Phosphorus 2.3 2.1 - 4.7 mg/dL 09/09/2024 7:09 AM EDT [facility] Albumin 3.7 3.5 - 5.7 g/dL 09/09/2024 7:09 AM EDT [facility] Osmolality, Calculated 288 278 - 305 mOsm/kg 09/09/2024 7:09 AM EDT [facility] EGFR 33 09/09/2024 7:09 AM EDT [facility] Comment:As of 2021, the estimated [...] Disease. Am J Kidney Dis. 2020. Plasma 09/09/2024 6:12 AM EDT 09/09/2024 6:37 AM EDT us Kathie Sanchez MD LAB BLOOD ORDERABLES Final Re sult Performing Organization Address [facility] Co de Phone Number [facility] [address] [place] [address]. [address] * Clostridium Difficile Toxin A/B Antigen (09/09/2024 4:58 AM EDT) CDIFF Tox AGN Negative Negative 09/09/2024 1:57 PM EDT [facility] Comment:C. difficile nucleic acid testing is positive but toxin antigen testing is negative. Please note that antigen testing is less sensitive than nucleic acid testing and cannot distinguish disease from colonization. Interpret results with caution and in the context of the clinical presentation of the patient. Stool, Liquid 09/09/2024 4:5 8 AM EDT 09/09/2024 11:57 AM EDT Comment:F us Kathie Sanchez MD BODY FLUIDS AND STOOLS ORDERA BLES Final Result Performing Organization Address [facility] Co de Phone Number [facility] [address] [facility]. [address] * Enteric Pathogen Panel (09/09/2024 4:58 AM EDT) Campylobacter Group (C. ecoli, C. jejuni, C. trino) Not Detected Not Detected 09/09/2024 9:44 AM EDT [facility] Salmonella species Not Detected Not Detected 09/09/2024 9:44 AM EDT [facility] Shigella species Not Detected Not Detected 09/09/2024 9:44 AM EDT [facility] Vibrio Group (Vibrio cholerae, Vibrio parahaemolyticus) Not Detected Not Detected 09/09/2024 9:44 AM EDT [facility] Yersinia enterocolitica Not Detected Not Detected 09/09/2024 9:44 AM EDT [facility] Shiga toxin 1 Not Detected Not Detected 09/09/2024 9:44 AM EDT [facility] Shiga toxin 2 Not Detected Not Detected 09/09/2024 9:44 AM EDT [facility] Norovirus Not Detected Not Detected 09/09/2024 9:44 AM EDT [facility] Rotavirus Not Detected Not Detected 09/09/2024 9:44 AM EDT [facility] Comment: The Enteric Pathogen Panel is an FDA-approved nucleic acid amplification test that detects 2 different viral targets and 7 bacterial targets in stool specimens. This assay does not test for Aeromonas and Pleisomonas, which may be potential enteric pathogens. If testing for these organisms is warranted, please contact the Microbiology laboratory. Negative results do not rule out the presence of viral, bacterial, or parasitic infections. Infections with more than a single agent have been reported. For further information, call the micro laboratory. Feces FECES / Unknown 09/09/2024 4 :58 AM EDT 09/09/2024 6:44 AM EDT Comment:F us Kathie Sanchez MD BODY FLUIDS AND STOOLS ORDERA BLES Final Result [facility] [address] [place], [place] [address] * (ABNORMAL) Clostridium difficile DNA Amplification (09/09/2024 4:58 AM EDT) Pathologist [facility] Clost. Diff DNA Amp. Positive( A) Negative 09/09/2024 1:20 PM EDT [facility] Comment:Positive indicates t oxigenic C. difficile was detected in the sample. Negative indicates that toxigenic C. difficile was not detected above the limit of the detection of the assay. The test methodology is a FDA approved DNA amplification assay. Stool, Liquid FECES / Unknown 09/09/2024 4:58 AM EDT 09/09/2024 6:44 AM EDT Comment:F Kathie Sanchez MD BODY FLUIDS AND STOOLS ORDERA BLEJose Final Result [facility] [address] [id number], [facility] * (ABNORMAL) Renal Function Panel w/EGFR (09/08/2024 3:50 PM EDT) Sodium 136 133 - 146 mmol/L 09/08/2024 6:01 PM EDT [facility] Potassium 3.5 3.5 - 5.3 mmol/L 09/08/2024 6:01 PM EDT [facility] Chloride 110 98 - 110 mmol/L 09/08/2024 6:01 PM EDT [facility] CO2 13(L) 21 - 33 mmol/L 09/08/2024 6:01 PM EDT [facility] Anion Gap 13 3 - 16 mmol/L 09/08/2024 6:01 PM EDT [facility] BUN 29(H) 7 - 25 mg/dL 09/08/2024 6:01 PM EDT [facility] Creatinine 2.24(H) 0.60 - 1.30 mg/dL 09/08/2024 6:01 PM EDT [facility] Glucose 114(H) 70 - 100 mg/dL 09/08/2024 6:01 PM EDT [facility] Calcium 8.5(L) 8.6 - 10.3 mg/dL 09/08/2024 6:01 PM EDT [facility] Phosphorus 2.3 2.1 - 4.7 mg/dL 09/08/2024 6:01 PM EDT [facility] Albumin 3.5 3.5 - 5.7 g/dL 09/08/2024 6:01 PM EDT [facility] Osmolality, Calculated 289 278 - 305 mOsm/kg 09/08/2024 6:01 PM EDT [facility] EGFR 37 09/08/2024 6:01 PM EDT [facility] Comment:As of 2021, the estimated [...] Disease. Am J Kidney Dis. 2020. Plasma 09/08/2024 3:50 PM EDT 09/08/2024 4:34 PM EDT us Chicho Mackay MD LAB BLOOD ORDERABLES Final Res ult [facility] [address] [id number], [facility] * (ABNORMAL) Renal Function Panel w/EGFR (09/08/2024 2:08 PM EDT) Sodium 136 133 - 146 mmol/L 09/08/2024 2:55 PM EDT [facility] Potassium 3.3(L) 3.5 - 5.3 mmol/L 09/08/2024 2:55 PM EDT [facility] Chloride 112(H) 98 - 110 mmol/L 09/08/2024 2:55 PM EDT [facility] CO2 16(L) 21 - 33 mmol/L 09/08/2024 2:55 PM EDT [facility] Anion Gap 8 3 - 16 mmol/L 09/08/2024 2:55 PM EDT [facility] BUN 30(H) 7 - 25 mg/dL 09/08/2024 2:55 PM EDT [facility] Creatinine 2.22(H) 0.60 - 1.30 mg/dL 09/08/2024 2:55 PM EDT [facility] Glucose 135(H) 70 - 100 mg/dL 09/08/2024 2:55 PM EDT [facility] Calcium 8.1(L) 8.6 - 10.3 mg/dL 09/08/2024 2:55 PM EDT [facility] Phosphorus 1.9(L) 2.1 - 4.7 mg/dL 09/08/2024 2:55 PM EDT [facility] Albumin 3.3(L) 3.5 - 5.7 g/dL 09/08/2024 2:55 PM EDT [facility] Osmolality, Calculated 290 278 - 305 mOsm/kg 09/08/2024 2:55 PM EDT [facility] EGFR 37 09/08/2024 2:55 PM EDT [facility] Comment:As of 2021, the estimated [...] Disease. Am J Kidney Dis. 2020. Plasma 09/08/2024 2:08 PM EDT 09/08/2024 2:19 PM EDT us Kathie Sanchez MD LAB BLOOD ORDERABLES Final Re sult [facility] [address] [facility] [place] [address], [facility] * (ABNORMAL) Hepatic Function Panel, AM (09/08/2024 4:05 AM EDT) Total Bilirubin 18.7(H) 0.0 - 1.5 mg/dL 09/08/2024 7:11 AM EDT [facility] Bilirubin, Direct 9.06(H) 0.00 - 0.40 mg/dL 09/08/2024 7:11 AM EDT [facility] AST 48(H) 13 - 39 U/L 09/08/2024 7:11 AM EDT [facility] ALT 26 7 - 52 U/L 09/08/2024 7:11 AM EDT [facility] Alkaline Phosphatase 114 36 - 125 U/L 09/08/2024 7:11 AM EDT [facility] Total Protein 4.8(L) 6.4 - 8.9 g/dL 09/08/2024 7:11 AM EDT [facility] Albumin 3.4(L) 3.5 - 5.7 g/dL 09/08/2024 7:11 AM EDT [facility] Bilirubin, Indirect 9.64(H) 0.00 - 1.10 mg/dL 09/08/2024 7:11 AM EDT [facility] Plasma 09/08/2024 4:05 AM EDT 09/08/2024 4:26 AM EDT Azalea Hughes DO LAB BLOOD ORDERABLES Final Res ult [facility] [address] * (ABNORMAL) Protime-INR, AM (09/08/2024 4:05 AM EDT) Protime 26.0(H) 12.1 - 15.1 seconds 09/08/2024 4:39 AM EDT [facility] INR 2.3(H) 0.9 - 1.1 09/08/2024 4:39 AM EDT [facility] Comment: RECOMMENDED THERAPEUTIC RANGES USING INR : Stable oral anticoagulant therapy: 2.0 - 3.0 Mechanical prosthetic heart valve: 2.5 - 3.5 Recurrent acute myocardial infarction: 2.5 - 3.5 Plasma 09/08/2024 4:05 AM EDT 09/08/2024 4:20 AM EDT us Azalea Hughes LAB BLOOD ORDERABLES Final Res ult [facility] [address] [facility]. [address] * Magnesium (09/08/2024 4:05 AM EDT) Magnesium 1.5 1.5 - 2.5 mg/dL 09/08/2024 7:11 AM EDT [facility] Plasma 09/08/2024 4:05 AM EDT 09/08/2024 4:26 AM EDT Azalea Hughes LAB BLOOD ORDERABLES Final Res ult Performing Organization Address [facility] Co de Phone Number [facility] [address] [facility]. [address] * (ABNORMAL) Renal Function Panel w/EGFR (09/08/2024 4:05 AM EDT) Sodium 137 133 - 146 mmol/L 09/08/2024 5:37 AM EDT [facility] Potassium 3.3(L) 3.5 - 5.3 mmol/L 09/08/2024 5:37 AM EDT [facility] Chloride 112(H) 98 - 110 mmol/L 09/08/2024 5:37 AM EDT [facility] CO2 13(L) 21 - 33 mmol/L 09/08/2024 7:11 AM EDT [facility] Anion Gap 12 3 - 16 mmol/L 09/08/2024 7:11 AM EDT [facility] BUN 31(H) 7 - 25 mg/dL 09/08/2024 7:11 AM EDT [facility] Creatinine 2.36(H) 0.60 - 1.30 mg/dL 09/08/2024 7:11 AM EDT [facility] Glucose 147(H) 70 - 100 mg/dL 09/08/2024 7:11 AM EDT [facility] Calcium 8.3(L) 8.6 - 10.3 mg/dL 09/08/2024 7:11 AM EDT [facility] Phosphorus 2.2 2.1 - 4.7 mg/dL 09/08/2024 7:11 AM EDT [facility] Albumin 3.4(L) 3.5 - 5.7 g/dL 09/08/2024 7:11 AM EDT [facility] Osmolality, Calculated 293 278 - 305 mOsm/kg 09/08/2024 7:11 AM EDT [facility] EGFR 35 09/08/2024 7:11 AM EDT [facility] Comment:As of 2021, the estimated [...] Disease. Am J Kidney Dis. 2020. Plasma 09/08/2024 4:05 AM EDT 09/08/2024 4:26 AM EDT us Azalea Hughes DO LAB BLOOD ORDERABLES Final Res ult [facility] [address] [id number] * (ABNORMAL) CBC (09/08/2024 4:05 AM EDT) WBC 6.5 3.8 - 10.8 10E3/uL 09/08/2024 5:00 AM EDT [facility] RBC 2.21(L) 4.20 - 5.80 10E6/uL 09/08/2024 5:00 AM EDT [facility] Hemoglobin 8.0(L) 13.2 - 17.1 g/dL 09/08/2024 5:00 AM EDT [facility] Hematocrit 22.3(L) 38.5 - 50.0 % 09/08/2024 5:00 AM EDT [facility] MCV 100.8(H) 80.0 - 100.0 fL 09/08/2024 5:00 AM EDT [facility] MCH 36.1(H) 27.0 - 33.0 pg 09/08/2024 5:00 AM EDT [facility] MCHC 35.8 32.0 - 36.0 g/dL 09/08/2024 5:00 AM EDT [facility] RDW 23.4(H) 11.0 - 15.0 % 09/08/2024 5:00 AM EDT [facility] Platelets 43(L) 140 - 400 10E3/uL 09/08/2024 5:00 AM EDT [facility] Comment: CNV Specimen checked for clots. None detected. MPV 8.8 7.5 - 11.5 fL 09/08/2024 5:00 AM EDT [facility] Whole Blood 09/08/2024 4:05 AM EDT 09/08/2024 4:20 AM EDT us Azalea Hughes DO LAB BLOOD ORDERABLES Final Res ult [facility] [address] * (ABNORMAL) Renal Function Panel w/EGFR (09/07/2024 3:36 PM EDT) Sodium 139 133 - 146 mmol/L 09/07/2024 4:10 PM EDT [facility] Potassium 3.4(L) 3.5 - 5.3 mmol/L 09/07/2024 4:10 PM EDT [facility] Chloride 112(H) 98 - 110 mmol/L 09/07/2024 4:10 PM EDT [facility] CO2 18(L) 21 - 33 mmol/L 09/07/2024 4:10 PM EDT [facility] Anion Gap 9 3 - 16 mmol/L 09/07/2024 4:10 PM EDT [facility] BUN 34(H) 7 - 25 mg/dL 09/07/2024 4:10 PM EDT [facility] Creatinine 2.40(H) 0.60 - 1.30 mg/dL 09/07/2024 4:10 PM EDT [facility] Glucose 125(H) 70 - 100 mg/dL 09/07/2024 4:10 PM EDT [facility] Calcium 8.5(L) 8.6 - 10.3 mg/dL 09/07/2024 4:10 PM EDT [facility] Phosphorus 2.0(L) 2.1 - 4.7 mg/dL 09/07/2024 4:10 PM EDT [facility] Albumin 3.6 3.5 - 5.7 g/dL 09/07/2024 4:10 PM EDT [facility] Osmolality, Calculated 297 278 - 305 mOsm/kg 09/07/2024 4:10 PM EDT [facility] EGFR 34 09/07/2024 4:10 PM EDT [facility] Comment:As of 2021, the estimated [...] Disease. Am J Kidney Dis. 2020. Plasma 09/07/2024 3:36 PM EDT 09/07/2024 3:43 PM EDT us Azalea Hughes DO LAB BLOOD ORDERABLES Final Res ult [facility] [address] [place] [address], [facility] * (ABNORMAL) Protime-INR, AM (09/07/2024 3:42 AM EDT) Protime 26.1(H) 12.1 - 15.1 seconds 09/07/2024 4:21 AM EDT [facility] INR 2.3(H) 0.9 - 1.1 09/07/2024 4:21 AM EDT [facility] Comment: RECOMMENDED THERAPEUTIC RANGES USING INR : Stable oral anticoagulant therapy: 2.0 - 3.0 Mechanical prosthetic heart valve: 2.5 - 3.5 Recurrent acute myocardial infarction: 2.5 - 3.5 Plasma 09/07/2024 3:42 AM EDT 09/07/2024 3:50 AM EDT Azalea Hughes LAB BLOOD ORDERABLES Final Res ult Performing Organization Address City/State/[facility] Co de Phone Number [facility] [address] * (ABNORMAL) Hepatic Function Panel, AM (09/07/2024 3:42 AM EDT) Total Bilirubin 18.9(H) 0.0 - 1.5 mg/dL 09/07/2024 5:37 AM EDT [facility] Bilirubin, Direct 9.8(H) 0.0 - 0.4 mg/dL 09/07/2024 5:37 AM EDT [facility] AST 47(H) 13 - 39 U/L 09/07/2024 5:37 AM EDT [facility] ALT 27 7 - 52 U/L 09/07/2024 5:37 AM EDT [facility] Alkaline Phosphatase 104 36 - 125 U/L 09/07/2024 5:37 AM EDT [facility] Total Protein 4.9(L) 6.4 - 8.9 g/dL 09/07/2024 5:37 AM EDT [facility] Albumin 3.5 3.5 - 5.7 g/dL 09/07/2024 5:37 AM EDT [facility] Bilirubin, Indirect 9.1(H) 0.0 - 1.1 mg/dL 09/07/2024 5:37 AM EDT [facility] Plasma 09/07/2024 3:42 AM EDT 09/07/2024 3:54 AM [facility] Final Res ult [facility] [address] * Magnesium (09/07/2024 3:42 AM EDT) Magnesium 1.7 1.5 - 2.5 mg/dL 09/07/2024 5:37 AM EDT [facility] Plasma 09/07/2024 3:42 AM EDT 09/07/2024 3:54 AM EDT [facility] LAB BLOOD ORDERABLES Final Res ult Performing Organization Address [facility] Co de Phone Number [facility] [address] * (ABNORMAL) Renal Function Panel w/EGFR (09/07/2024 3:42 AM EDT) Sodium 137 133 - 146 mmol/L 09/07/2024 5:37 AM EDT [facility] Potassium 3.2(L) 3.5 - 5.3 mmol/L 09/07/2024 5:37 AM EDT [facility] Chloride 111(H) 98 - 110 mmol/L 09/07/2024 5:37 AM EDT [facility] CO2 15(L) 21 - 33 mmol/L 09/07/2024 5:37 AM EDT [facility] Anion Gap 11 3 - 16 mmol/L 09/07/2024 5:37 AM EDT [facility] BUN 36(H) 7 - 25 mg/dL 09/07/2024 5:37 AM EDT [facility] Creatinine 2.60(H) 0.60 - 1.30 mg/dL 09/07/2024 5:37 AM EDT [facility] Glucose 150(H) 70 - 100 mg/dL 09/07/2024 5:37 AM EDT [facility] Calcium 8.3(L) 8.6 - 10.3 mg/dL 09/07/2024 5:37 AM EDT [facility] Phosphorus 1.9(L) 2.1 - 4.7 mg/dL 09/07/2024 5:37 AM EDT [facility] Albumin 3.5 3.5 - 5.7 g/dL 09/07/2024 5:37 AM EDT [facility] Osmolality, Calculated 295 278 - 305 mOsm/kg 09/07/2024 5:37 AM EDT [facility] EGFR 31 09/07/2024 5:37 AM EDT [facility] Comment:As of 2021, the estimated [...] Disease. Am J Kidney Dis. 2020. Plasma 09/07/2024 3:42 AM EDT 09/07/2024 3:54 AM EDT us Azalea Hughes DO LAB BLOOD ORDERABLES Final Res ult [facility] [address] [id number], [facility] * (ABNORMAL) CBC (09/07/2024 3:42 AM EDT) WBC 4.0 3.8 - 10.8 10E3/uL 09/07/2024 4:09 AM EDT [facility] RBC 2.06(L) 4.20 - 5.80 10E6/uL 09/07/2024 4:09 AM EDT [facility] Hemoglobin 7.4(L) 13.2 - 17.1 g/dL 09/07/2024 4:09 AM EDT [facility] Hematocrit 20.7(L) 38.5 - 50.0 % 09/07/2024 4:09 AM EDT [facility] MCV 100.2(H) 80.0 - 100.0 fL 09/07/2024 4:09 AM EDT [facility] MCH 35.8(H) 27.0 - 33.0 pg 09/07/2024 4:09 AM EDT [facility] MCHC 35.7 32.0 - 36.0 g/dL 09/07/2024 4:09 AM EDT [facility] RDW 22.4(H) 11.0 - 15.0 % 09/07/2024 4:09 AM EDT [facility] Platelets 40(L) 140 - 400 10E3/uL 09/07/2024 4:09 AM EDT [facility] Comment: CNV Specimen checked for clots. None detected. MPV 8.6 7.5 - 11.5 fL 09/07/2024 4:09 AM EDT [facility] Whole Blood 09/07/2024 3:42 AM EDT 09/07/2024 3:50 AM EDT Azalea Hughes DO LAB BLOOD ORDERABLES Final Res ult [facility] [address] * (ABNORMAL) CBC (09/06/2024 4:37 PM EDT) WBC 5.1 3.8 - 10.8 10E3/uL 09/06/2024 5:19 PM EDT [facility] RBC 2.32(L) 4.20 - 5.80 10E6/uL 09/06/2024 5:19 PM EDT [facility] Hemoglobin 8.3(L) 13.2 - 17.1 g/dL 09/06/2024 5:19 PM EDT [facility] Hematocrit 23.3(L) 38.5 - 50.0 % 09/06/2024 5:19 PM EDT [facility] MCV 100.4(H) 80.0 - 100.0 fL 09/06/2024 5:19 PM EDT [facility] MCH 35.8(H) 27.0 - 33.0 pg 09/06/2024 5:19 PM EDT [facility] MCHC 35.7 32.0 - 36.0 g/dL 09/06/2024 5:19 PM EDT [facility] RDW 22.7(H) 11.0 - 15.0 % 09/06/2024 5:19 PM EDT [facility] Platelets 45(L) 140 - 400 10E3/uL 09/06/2024 5:19 PM EDT [facility] Comment:CNV MPV 8.1 7.5 - 11.5 fL 09/06/2024 5:19 PM EDT [facility] Whole Blood 09/06/2024 4:37 PM EDT 09/06/2024 4:45 PM EDT us Azalea Hughes DO LAB BLOOD ORDERABLES Final Res ult [facility] [address] * (ABNORMAL) Renal Function Panel w/EGFR (09/06/2024 4:37 PM EDT) Sodium 137 133 - 146 mmol/L 09/06/2024 5:17 PM EDT [facility] Potassium 3.2(L) 3.5 - 5.3 mmol/L 09/06/2024 5:17 PM EDT [facility] Chloride 109 98 - 110 mmol/L 09/06/2024 5:17 PM EDT [facility] CO2 17(L) 21 - 33 mmol/L 09/06/2024 5:17 PM EDT [facility] Anion Gap 11 3 - 16 mmol/L 09/06/2024 5:17 PM EDT [facility] BUN 37(H) 7 - 25 mg/dL 09/06/2024 5:17 PM EDT [facility] Creatinine 2.66(H) 0.60 - 1.30 mg/dL 09/06/2024 5:17 PM EDT [facility] Glucose 108(H) 70 - 100 mg/dL 09/06/2024 5:17 PM EDT [facility] Calcium 8.7 8.6 - 10.3 mg/dL 09/06/2024 5:17 PM EDT [facility] Phosphorus 2.2 2.1 - 4.7 mg/dL 09/06/2024 5:17 PM EDT [facility] Albumin 3.9 3.5 - 5.7 g/dL 09/06/2024 5:17 PM EDT [facility] Osmolality, Calculated 293 278 - 305 mOsm/kg 09/06/2024 5:17 PM EDT [facility] EGFR 30 09/06/2024 5:17 PM EDT [facility] Comment:As of 2021, the estimated [...] Disease. Am J Kidney Dis. 2020. Plasma 09/06/2024 4:37 PM EDT 09/06/2024 4:45 PM EDT us Azalea Hughes DO LAB BLOOD ORDERABLES Final Res ult [facility] [address] [place] [address], [facility] * (ABNORMAL) Hepatic Function Panel, AM (09/06/2024 4:30 AM EDT) Total Bilirubin 21.3(H) 0.0 - 1.5 mg/dL 09/06/2024 5:40 AM EDT [facility] Bilirubin, Direct 14.43(H) 0.00 - 0.40 mg/dL 09/06/2024 5:40 AM EDT [facility] AST 46(H) 13 - 39 U/L 09/06/2024 5:40 AM EDT [facility] ALT 25 7 - 52 U/L 09/06/2024 5:40 AM EDT [facility] Alkaline Phosphatase 85 36 - 125 U/L 09/06/2024 5:40 AM EDT [facility] Total Protein 5.0(L) 6.4 - 8.9 g/dL 09/06/2024 5:40 AM EDT [facility] Albumin 3.7 3.5 - 5.7 g/dL 09/06/2024 5:40 AM EDT [facility] Bilirubin, Indirect 6.87(H) 0.00 - 1.10 mg/dL 09/06/2024 5:40 AM EDT [facility] Plasma 09/06/2024 4:30 AM EDT 09/06/2024 5:03 AM EDT Azalea Hughes [facility] LAB BLOOD ORDERABLES Final Res ult [facility] [address] * (ABNORMAL) Protime-INR, AM (09/06/2024 4:30 AM EDT) Protime 25.3(H) 12.1 - 15.1 seconds 09/06/2024 5:26 AM EDT [facility] INR 2.2(H) 0.9 - 1.1 09/06/2024 5:26 AM EDT [facility] Comment: RECOMMENDED THERAPEUTIC RANGES USING INR : Stable oral anticoagulant therapy: 2.0 - 3.0 Mechanical prosthetic heart valve: 2.5 - 3.5 Recurrent acute myocardial infarction: 2.5 - 3.5 Plasma 09/06/2024 4:30 AM EDT 09/06/2024 5:02 AM EDT Azalea Piron DO LAB BLOOD ORDERABLES Final Res ult [facility] [address] * Magnesium (09/06/2024 4:30 AM EDT) Magnesium 1.8 1.5 - 2.5 mg/dL 09/06/2024 5:40 AM EDT [facility] Plasma 09/06/2024 4:30 AM EDT 09/06/2024 5:03 AM EDT Azalea Piron DO LAB BLOOD ORDERABLES Final Res ult Performing Organization Address City/[facility]/ZIP Co de Phone Number [facility] [address] [facility]. [address] * (ABNORMAL) Renal Function Panel w/EGFR (09/06/2024 4:30 AM EDT) Sodium 137 133 - 146 mmol/L 09/06/2024 5:29 AM EDT [facility] Potassium 3.1(L) 3.5 - 5.3 mmol/L 09/06/2024 5:29 AM EDT [facility] Chloride 109 98 - 110 mmol/L 09/06/2024 5:29 AM EDT [facility] CO2 17(L) 21 - 33 mmol/L 09/06/2024 5:29 AM EDT [facility] Anion Gap 11 3 - 16 mmol/L 09/06/2024 5:29 AM EDT [facility] BUN 40(H) 7 - 25 mg/dL 09/06/2024 5:29 AM EDT [facility] Creatinine 2.70(H) 0.60 - 1.30 mg/dL 09/06/2024 5:29 AM EDT [facility] Glucose 122(H) 70 - 100 mg/dL 09/06/2024 5:29 AM EDT [facility] Calcium 8.6 8.6 - 10.3 mg/dL 09/06/2024 5:29 AM EDT [facility] Phosphorus 2.0(L) 2.1 - 4.7 mg/dL 09/06/2024 5:40 AM EDT [facility] Albumin 3.7 3.5 - 5.7 g/dL 09/06/2024 5:40 AM EDT [facility] Osmolality, Calculated 295 278 - 305 mOsm/kg 09/06/2024 5:29 AM EDT [facility] EGFR 29 09/06/2024 5:29 AM EDT [facility] Comment:As of 2021, the estimated [...] Disease. Am J Kidney Dis. 2020. Plasma 09/06/2024 4:30 AM EDT 09/06/2024 5:03 AM EDT us Azalea Hughes LAB BLOOD ORDERABLES Final Res ult [facility] [address] * (ABNORMAL) CBC (09/06/2024 4:30 AM EDT) WBC 4.3 3.8 - 10.8 10E3/uL 09/06/2024 6:03 AM EDT [facility] RBC 2.28(L) 4.20 - 5.80 10E6/uL 09/06/2024 6:03 AM EDT [facility] Hemoglobin 8.4(L) 13.2 - 17.1 g/dL 09/06/2024 6:03 AM EDT [facility] Hematocrit 22.8(L) 38.5 - 50.0 % 09/06/2024 6:03 AM EDT [facility] MCV 99.9 80.0 - 100.0 fL 09/06/2024 6:03 AM EDT [facility] MCH 36.9(H) 27.0 - 33.0 pg 09/06/2024 6:03 AM EDT [facility] MCHC 36.9(H) 32.0 - 36.0 g/dL 09/06/2024 6:03 AM EDT [facility] RDW 23.2(H) 11.0 - 15.0 % 09/06/2024 6:03 AM EDT [facility] Platelets 41(L) 140 - 400 10E3/uL 09/06/2024 6:03 AM EDT [facility] Comment: Specimen checked for clots. None detected. Slide Reviewed for PLT Clumps. None Seen. MPV 8.9 7.5 - 11.5 fL 09/06/2024 6:03 AM EDT [facility] Whole Blood 09/06/2024 4:30 AM EDT 09/06/2024 5:03 AM EDT us Azalea Hughes DO LAB BLOOD ORDERABLES Final Res ult [facility] [address] * (ABNORMAL) Protime-INR, AM (09/05/2024 7:24 AM EDT) Protime 27.8(H) 12.1 - 15.1 seconds 09/05/2024 8:18 AM EDT [facility] INR 2.5(H) 0.9 - 1.1 09/05/2024 8:18 AM EDT [facility] Comment: RECOMMENDED THERAPEUTIC RANGES USING INR : Stable oral anticoagulant therapy: 2.0 - 3.0 Mechanical prosthetic heart valve: 2.5 - 3.5 Recurrent acute myocardial infarction: 2.5 - 3.5 Plasma 09/05/2024 7:24 AM EDT 09/05/2024 7:38 AM EDT us Kiet Ramirez MD LAB BLOOD ORDERABLES Denisse l Result [facility] [address] [place] [address], [facility] * (ABNORMAL) Hepatic Function Panel, AM (09/05/2024 7:24 AM EDT) Total Bilirubin 23.0(H) 0.0 - 1.5 mg/dL 09/05/2024 8:25 AM EDT [facility] Bilirubin, Direct 15.57(H) 0.00 - 0.40 mg/dL 09/05/2024 8:25 AM EDT [facility] AST 41(H) 13 - 39 U/L 09/05/2024 8:25 AM EDT [facility] ALT 28 7 - 52 U/L 09/05/2024 8:25 AM EDT [facility] Alkaline Phosphatase 89 36 - 125 U/L 09/05/2024 8:25 AM EDT [facility] Total Protein 4.3(L) 6.4 - 8.9 g/dL 09/05/2024 8:25 AM EDT [facility] Albumin 3.3(L) 3.5 - 5.7 g/dL 09/05/2024 8:25 AM EDT [facility] Bilirubin, Indirect 7.43(H) 0.00 - 1.10 mg/dL 09/05/2024 8:25 AM EDT [facility] Plasma 09/05/2024 7:24 AM EDT 09/05/2024 7:38 AM EDT Kiet Ramirez MD LAB BLOOD ORDERABLES Denisse l Result [facility] [address] [facility] [place] [address], [facility] * Phosphorus, AM (09/05/2024 7:24 AM EDT) Phosphorus 2.1 2.1 - 4.7 mg/dL 09/05/2024 8:25 AM EDT [facility] Plasma 09/05/2024 7:24 AM EDT 09/05/2024 7:38 AM EDT Kiet Ramirez MD LAB BLOOD ORDERABLES Denisse l Result Performing Organization Address City/[facility]/ZIP Co de Phone Number [facility] [facility] [address] [facility]. [address] * Magnesium, AM (09/05/2024 7:24 AM EDT) Magnesium 2.0 1.5 - 2.5 mg/dL 09/05/2024 8:25 AM EDT [facility] Plasma 09/05/2024 7:24 AM EDT 09/05/2024 7:38 AM EDT Kiet Ramirez MD LAB BLOOD ORDERABLES Denisse l Result Performing Organization Address [facility] de Phone Number [facility] [address] * (ABNORMAL) Basic Metabolic panel, AM (09/05/2024 7:24 AM EDT) Sodium 134 133 - 146 mmol/L 09/05/2024 8:25 AM EDT [facility] Potassium 3.6 3.5 - 5.3 mmol/L 09/05/2024 8:25 AM EDT [facility] Chloride 107 98 - 110 mmol/L 09/05/2024 8:25 AM EDT [facility] CO2 19(L) 21 - 33 mmol/L 09/05/2024 8:25 AM EDT [facility] Anion Gap 8 3 - 16 mmol/L 09/05/2024 8:25 AM EDT [facility] BUN 42(H) 7 - 25 mg/dL 09/05/2024 8:25 AM EDT [facility] Creatinine 2.92(H) 0.60 - 1.30 mg/dL 09/05/2024 8:25 AM EDT [facility] Glucose 108(H) 70 - 100 mg/dL 09/05/2024 8:25 AM EDT [facility] Calcium 8.6 8.6 - 10.3 mg/dL 09/05/2024 8:25 AM EDT [facility] Osmolality, Calculated 289 278 - 305 mOsm/kg 09/05/2024 8:25 AM EDT [facility] EGFR 27 09/05/2024 8:25 AM EDT [facility] Comment:As of 2021, the estimated [...] Olivia DC, Emerita ND, Madelyn CRUZ, Felicia ESPINOSA, et al. A Unifying Approach for GFR Estimation: Recommendations of the NKF-ASN Task Force on Reassessing the inclusion of Race in Diagnosing Kidney Disease. Am J Kidney Dis. 2020. Plasma 09/05/2024 7:24 AM EDT 09/05/2024 7:38 AM EDT us Kiet Ramirez MD LAB BLOOD ORDERABLES Denisse valle Result [facility] [address] [facility] [place] [address], [facility] * (ABNORMAL) CBC, AM (09/05/2024 7:24 AM EDT) WBC 4.6 3.8 - 10.8 10E3/uL 09/05/2024 8:04 AM EDT [facility] RBC 2.11(L) 4.20 - 5.80 10E6/uL 09/05/2024 8:04 AM EDT [facility] Hemoglobin 7.6(L) 13.2 - 17.1 g/dL 09/05/2024 8:04 AM EDT [facility] Hematocrit 21.1(L) 38.5 - 50.0 % 09/05/2024 8:04 AM EDT [facility] MCV 99.7 80.0 - 100.0 fL 09/05/2024 8:04 AM EDT [facility] MCH 35.9(H) 27.0 - 33.0 pg 09/05/2024 8:04 AM EDT [facility] MCHC 36.0 32.0 - 36.0 g/dL 09/05/2024 8:04 AM EDT [facility] RDW 22.8(H) 11.0 - 15.0 % 09/05/2024 8:04 AM EDT [facility] Platelets 37(L) 140 - 400 10E3/uL 09/05/2024 8:04 AM EDT [facility] Comment: CNV Specimen checked for clots. None detected. MPV 9.0 7.5 - 11.5 fL 09/05/2024 8:04 AM EDT [facility] Whole Blood 09/05/2024 7:24 AM EDT 09/05/2024 7:38 AM EDT us Kiet Ramirez MD LAB BLOOD ORDERABLES Denisse l Result Performing Organization Address City/[facility]/ZIP Co de Phone Number [facility] [address] * ECG 12 lead (MUSE) (09/05/2024 4:57 AM EDT) 09/05/2024 4:57 AM EDT Narrative MUSE - 09/06/2024 7:31 AM EDT Ventricular Rate: 78 BPM Atrial Rate: 78 BPM P-R Interval: 196 ms QRS Duration: 100 ms QT: 362 ms QTc: 412 ms P [place]: 69 degrees R [place]: -23 degrees T [place]: 10 degrees Diagnosis Line: NORMAL SINUS RHYTHM ^ NONSPECIFIC T WAVE CHANGE ^ ABNORMAL ECG ^ ^ Confirmed by MD DELPHINE, FLOYD ([id number]) on 09/06/2024 7:31:28 AM us Kathie Sanchez MD ECG ORDERABLES Final Result MUSE * EKG - scan (09/05/2024 3:27 AM EDT) us Scanning [employer]ch[employer] SCAN DOCS - NO RESULTS Final Res ult * CARISA Rhythm Strip - Scan (09/04/2024 11:22 PM EDT) us Scanning [employer]him SCAN DOCS - NO RESULTS Final Res ult * Lactic Acid (09/04/2024 4:21 PM EDT) Lactate 1.6 0.5 - 2.2 mmol/L 09/04/2024 5:27 PM EDT [facility] Plasma 09/04/2024 4:21 PM EDT 09/04/2024 4:30 PM EDT Kiet Ramirez MD LAB BLOOD ORDERABLES Denisse l Result [facility] [address] * Magnesium (09/04/2024 4:21 PM EDT) Magnesium 2.4 1.5 - 2.5 mg/dL 09/04/2024 4:47 PM EDT [facility] Plasma 09/04/2024 4:21 PM EDT 09/04/2024 4:24 PM EDT Kiet Ramirez MD LAB BLOOD ORDERABLES Denisse l Result [facility] [address] [facility]. [address] * (ABNORMAL) Basic Metabolic Panel (09/04/2024 4:21 PM EDT) Sodium 134 133 - 146 mmol/L 09/04/2024 4:47 PM EDT [facility] Potassium 3.5 3.5 - 5.3 mmol/L 09/04/2024 4:47 PM EDT [facility] Chloride 104 98 - 110 mmol/L 09/04/2024 4:47 PM EDT [facility] CO2 20(L) 21 - 33 mmol/L 09/04/2024 4:47 PM EDT [facility] Anion Gap 10 3 - 16 mmol/L 09/04/2024 4:47 PM EDT [facility] BUN 43(H) 7 - 25 mg/dL 09/04/2024 4:47 PM EDT [facility] Creatinine 3.31(H) 0.60 - 1.30 mg/dL 09/04/2024 4:47 PM EDT [facility] Glucose 142(H) 70 - 100 mg/dL 09/04/2024 4:47 PM EDT [facility] Calcium 9.1 8.6 - 10.3 mg/dL 09/04/2024 4:47 PM EDT [facility] Osmolality, Calculated 291 278 - 305 mOsm/kg 09/04/2024 4:47 PM EDT [facility] EGFR 23 09/04/2024 4:47 PM EDT [facility] Comment:As of 2021, the estimated [...] Disease. Am J Kidney Dis. 2020. Plasma 09/04/2024 4:21 PM EDT 09/04/2024 4:24 PM EDT us Kiet Ramirez MD LAB BLOOD ORDERABLES Denisse valle Result [facility] [address] [place] [address], [facility] * IR Paracentesis incl imaging guide (09/04/2024 3:55 PM EDT) Anatomical Region Laterality Modality Abdomen, Pelvis X-Ray Angiograph y 09/04/2024 2:33 PM EDT Impressions 09/08/2024 3:28 PM EDT IMPRESSION: 1. Successful diagnostic and therapeutic ultrasound-guided paracentesis Plan: 1. Consult IR with any increasing abdominal ascites. 2. Fluid sent to lab for fluid analysis. Report Verified by: Shelia Logan CNP at 09/08/2024 3:28 PM EDT Narrative 09/08/2024 3:28 PM EDT Procedure: Paracentesis, ultrasound-guided Performed on 09/04/24 Indications: Julien Anderson is a 39 y.o. 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 US 09/03 demonstrates moderate volume ascites. Diagnostic para in ED not concerning for SBP. IR consulted for repeat D/T paracentesis (no more than 4 L of ascites to be removed 2/2 HRS). Patient INR 3.0 today. Will proceed with D/T paracentesis Shelia Logan CNP, Online Project Manager Procedure and Findings: The procedure was performed in the VIR suite following informed consent and a time out. 1% lidocaine with epi local anesthesia was used. Ultrasound was used to evaluate the presence and distribution of peritoneal fluid, color doppler was used to evaluate area of percutaneous access, a picture was saved into PACS, no major vessels noted. With the patient in the supine position, the right lower abdomen was prepped and draped in the usual sterile fashion. Using real time ultrasound guidance, a 10 cm, 5-F [employer] catheter was placed into the right lower quadrant and peritoneal fluid was aspirated. Approximately 4000 mL of clear yellow fluid removed and sent to the lab for diagnostics. The drainage catheter was removed and the catheter site was dressed in the usual fashion. There were no immediate complications. Procedure Note Shelia Logan CNP - 09/08/2024 Procedure: Paracentesis, ultrasound-guided Performed on 09/04/24 Indications: Julien Anderson is a 39 y.o. male with Pmhx of EtOH cirrhosisd/b HE, jaundice, NBEV, and ascites with recent alcoholic associatedhepatitis currently admitted with abdominal pain and malaise. US 09/03demonstrates moderate volume ascites. Diagnostic para in ED not concerningfor SBP. IR consulted for repeat D/T paracentesis (no more than 4 L ofascites to be removed 2/2 HRS). Patient INR 3.0 today. Will proceed withD/T paracentesis Shelia Logan CNP, Online Project Manager Procedure and Findings: The procedure was performed in the VIR suite following informed consentand a time out. 1% lidocaine with epi local anesthesia was used. Ultrasound was used to evaluate the presence and distribution ofperitoneal fluid, color doppler was used to evaluate area of percutaneousaccess, a picture was saved into PACS, no major vessels noted. With thepatient in the supine position, the right lower abdomen was prepped anddraped in the usual sterile fashion. Using real time ultrasound guidance, a 10 cm, 5-F [employer]esis catheterwas placed into the right lower quadrant and peritoneal fluid wasaspirated. Approximately 4000 mL of clear yellow fluid removed and sent to the labfor diagnostics. The drainage catheter was removed and the catheter site was dressed in theusual fashion. There were no immediate complications. IMPRESSION: 1. Successful diagnostic and therapeutic ultrasound-guided paracentesis Plan: 1. Consult IR with any increasing abdominal ascites. 2. Fluid sent to lab for fluid analysis. Report Verified by: Shelia Logan CNP at 09/08/2024 3:28 PM EDT us Kiet Ramirez MD [facility] IR ORDERABLES Final R esult * Fluid Creatinine (09/04/2024 11:01 AM EDT) Creat, Fluid 3.17 mg/dL 09/04/2024 6:15 PM EDT [facility] Comment:Reference range not established for this test. Abdominal Fluid ABDOMEN / Unknown 025 11:01 AM EDT 09/04/2024 5:25 PM EDT Narrative [facility] - 09/04/2024 6:15 PM EDT This assay has been modified from the optimization specialist's specifications and has been validated with performance characteristics determined by [facility] in accordance with federal regulations under the Clinical Laboratory Act Amendment of 1988. The modification has not been approved by the FDA which has determined that such approval is not necessary. The test is for clinical purposes and should not be regarded as investigational or for research use. Kiet Ramirez MD BODY FLUIDS AND STOOLS OR DERABLES Final Result Performing Organization Address [facility] de Phone Number [address] * Albumin, fluid (09/04/2024 11:01 AM EDT) Albumin, Fluid <1.5 g/dL 09/04/2024 6:15 PM EDT [facility] Comment:Reference range not established for this test. Abdominal Fluid ABDOMEN / Unknown 025 11:01 AM EDT 09/04/2024 5:25 PM EDT Narrative [facility] - 09/04/2024 6:15 PM EDT This assay has been modified from the optimization specialist's specifications and has been validated with performance characteristics determined by [facility] in accordance with federal regulations under the Clinical Laboratory Act Amendment of 1987. The modification has not been approved by the FDA which has determined that such approval is not necessary. The test is for clinical purposes and should not be regarded as investigational or for research use. Kiet Ramirez MD BODY FLUIDS AND STOOLS OR DERABLES Final Result Performing Organization Address [facility] de Phone Number [facility] [address] [place] [address]. [address] * Protein, Body fluid (09/04/2024 11:01 AM EDT) Protein, Fluid <3.0 g/dL 09/04/2024 6:15 PM EDT [facility] Comment:Reference range not established for this test. Ascitic Fluid ABDOMEN / Unknown 11:01 AM EDT 09/04/2024 5:25 PM EDT Narrative [facility] - 09/04/2024 6:15 PM EDT This assay has been modified from the optimization specialist's specifications and has been validated with performance characteristics determined by [facility] in accordance with federal regulations under the Clinical Laboratory Act Amendment of 1988. The modification has not been approved by the FDA which has determined that such approval is not necessary. The test is for clinical purposes and should not be regarded as investigational or for research use. us Kiet Ramirez MD BODY FLUIDS AND STOOLS OR DERABLES Final Result Performing Organization Address [facility]/ZIP Co de Phone Number [facility] [address] [facility]. [address] * Body Fluid Culture plus Stain (09/04/2024 11:01 AM EDT) Gram Stain Result Cytospin Results: [facility] Gram Stain Result Polymorphonuclear Leukocytes Seen; [facility] Gram Stain Result No Organisms Seen; [facility] Culture Result No Growth After 5 Days [facility] Fluid ABDOMEN / Unknown 09/04/2024 11:01 AM EDT 09/04/2024 5:25 PM EDT Kiet Ramirez MD MICROBIOLOGY - GENERAL OR DERABLES Final Result Performing Organization Address [facility] Co de Phone Number [facility] [address] [facility]. [address] * (ABNORMAL) Body fluid cell count (09/04/2024 11:01 AM EDT) Color, Fluid Yellow(A) Colorless, Pale Yellow 09/04/2024 6:54 PM EDT [facility] Clarity, Fluid Hazy 09/04/2024 6:54 PM EDT [facility] Neutrophil %, Fluid 85 % 09/04/2024 6:54 PM EDT [facility] Lymphocytes %, Fluid 3 % 09/04/2024 6:54 PM EDT [facility] Macrophage %, Fluid 12 % 09/04/2024 6:54 PM EDT [facility] RBC, Fluid 840 /uL 09/04/2024 6:54 PM EDT [facility] Total Nucleated Cells, Fluid 2,276 /uL 09/04/2024 6:54 PM EDT [facility] Comment:Total Nucleated Cell s represent WBCs and other nucleated cells in the fluid such as lining cells. Ascitic Fluid ABDOMEN / Unknown 11:01 AM EDT 09/04/2024 5:25 PM EDT Kiet Ramirez MD BODY FLUIDS AND STOOLS OR DERABLES Final Result Performing Organization Address [facility] Co de Phone Number [facility] [address] [facility]. [address] * AFP Tumor Marker (09/04/2024 10:32 AM EDT) AFP-Tumor Marker 1.9 0.0 - 9.0 ng/mL 09/04/2024 2:53 PM EDT [facility] Serum 09/04/2024 10:3 2 AM EDT 09/04/2024 2:35 PM EDT Narrative [facility] - 09/04/2024 2:53 PM EDT The testing method for AFP is a chemiluminescent immunoassay manufactured by [employer] Concentrations of AFP obtained by different assay methods or kits may vary and cannot be used interchangeably. AFP results cannot be interpreted as absolute evidence of the presence or absence of malignant disease. Kiet Ramirez MD LAB BLOOD ORDERABLES Denisse l Result Performing Organization Address [facility] Co de Phone Number [facility] [address] [facility]. [address] * Lipase (09/04/2024 5:22 AM EDT) Lipase 40 4 - 82 U/L 09/04/2024 11:41 AM EDT [facility] Plasma 09/04/2024 5:22 AM EDT 09/04/2024 11:23 AM EDT Kiet Rmairez MD LAB BLOOD ORDERABLES Denisse l Result Performing Organization Address [facility] Co de Phone Number [facility] [address] [facility]. [address] * Calcium Free, Serum (09/04/2024 5:22 AM EDT) Free Calcium, Ser 4.93 4.40 - 5.40 mg/dL 09/04/2024 5:44 AM EDT [facility] Comment:Free calcium levels vary inversely with pH by approximately 5% for each 0.1 unit of pH change. Assay results have been normalized to pH = 7.40. Serum 09/04/2024 5:22 AM EDT 09/04/2024 5:27 AM EDT Narrative [facility] - 09/04/2024 5:44 AM EDT This test has been developed and its performance characteristics determined by [facility] which is certified under the Clinical Laboratory Improvement Amendment of 1988 (CLIA-88) to perform high complexity testing. The test has not been cleared or approved by the US Food and Drug Administration (FDA). The FDA has determined that such clearance is not necessary. The test should be used for clinical purposes and is not regarded as investigational. Kiet Ramirez MD LAB BLOOD ORDERABLES Denisse l Result Performing Organization Address [facility] Co de Phone Number [facility] [address] * (ABNORMAL) Protime-INR, AM (09/04/2024 5:22 AM EDT) Pathologist [facility] Protime 32.0(H) 12.1 - 15.1 seconds 09/04/2024 6:03 AM EDT [facility] INR 3.0(H) 0.9 - 1.1 09/04/2024 6:03 AM EDT [facility] Comment: RECOMMENDED THERAPEUTIC RANGES USING INR : Stable oral anticoagulant therapy: 2.0 - 3.0 Mechanical prosthetic heart valve: 2.5 - 3.5 Recurrent acute myocardial infarction: 2.5 - 3.5 Plasma 09/04/2024 5:22 AM EDT 09/04/2024 5:38 AM EDT Kiet Ramirez MD LAB BLOOD ORDERABLES Denisse l Result Performing Organization Address [facility] Co de Phone Number [facility] [address] * Phosphorus, AM (09/04/2024 5:22 AM EDT) Phosphorus 2.2 2.1 - 4.7 mg/dL 09/04/2024 6:39 AM EDT [facility] Plasma 09/04/2024 5:22 AM EDT 09/04/2024 5:27 AM EDT Kiet Ramirez MD LAB BLOOD ORDERABLES Denisse l Result Performing Organization Address City/[facility]/ZIP Co de Phone Number [facility] [address] [facility]. [address] * Magnesium, AM (09/04/2024 5:22 AM EDT) Magnesium 2.4 1.5 - 2.5 mg/dL 09/04/2024 6:39 AM EDT [facility] Plasma 09/04/2024 5:22 AM EDT 09/04/2024 5:27 AM EDT Kiet Ramirez MD LAB BLOOD ORDERABLES Denisse l Result [facility] [address] [facility]. [address] * (ABNORMAL) Hepatic Function Panel, AM (09/04/2024 5:22 AM EDT) Total Bilirubin 25.5(H) 0.0 - 1.5 mg/dL 09/04/2024 6:39 AM EDT [facility] AST 43(H) 13 - 39 U/L 09/04/2024 6:39 AM EDT [facility] ALT 30 7 - 52 U/L 09/04/2024 6:39 AM EDT [facility] Alkaline Phosphatase 75 36 - 125 U/L 09/04/2024 6:39 AM EDT [facility] Total Protein 4.6(L) 6.4 - 8.9 g/dL 09/04/2024 6:39 AM EDT [facility] Albumin 3.2(L) 3.5 - 5.7 g/dL 09/04/2024 6:39 AM EDT [facility] Bilirubin, Direct 17.39(H) 0.00 - 0.40 mg/dL 09/04/2024 8:24 AM EDT [facility] Bilirubin, Indirect 8.11(H) 0.00 - 1.10 mg/dL 09/04/2024 8:24 AM EDT [facility] Plasma 09/04/2024 5:22 AM EDT 09/04/2024 5:27 AM EDT us Kiet Ramirez MD LAB BLOOD ORDERABLES Denisse valle Result [facility] [address] [facility] [place] [address], [facility] * (ABNORMAL) Basic Metabolic panel, AM (09/04/2024 5:22 AM EDT) Sodium 132(L) 133 - 146 mmol/L 09/04/2024 5:56 AM EDT [facility] Potassium 3.7 3.5 - 5.3 mmol/L 09/04/2024 5:56 AM EDT [facility] Chloride 103 98 - 110 mmol/L 09/04/2024 5:56 AM EDT [facility] CO2 18(L) 21 - 33 mmol/L 09/04/2024 5:56 AM EDT [facility] Anion Gap 11 3 - 16 mmol/L 09/04/2024 5:56 AM EDT [facility] BUN 41(H) 7 - 25 mg/dL 09/04/2024 5:56 AM EDT [facility] Creatinine 3.21(H) 0.60 - 1.30 mg/dL 09/04/2024 5:56 AM EDT [facility] Glucose 162(H) 70 - 100 mg/dL 09/04/2024 5:56 AM EDT [facility] Calcium 8.5(L) 8.6 - 10.3 mg/dL 09/04/2024 5:56 AM EDT [facility] Osmolality, Calculated 288 278 - 305 mOsm/kg 09/04/2024 5:56 AM EDT [facility] EGFR 24 09/04/2024 5:56 AM EDT [facility] Comment:As of 2021, the estimated [...] Disease. Am J Kidney Dis. 2020. Plasma 09/04/2024 5:22 AM EDT 09/04/2024 5:27 AM EDT us Kiet Ramirez MD LAB BLOOD ORDERABLES Denisse valle Result [facility] [address] [place] [address], [facility] * (ABNORMAL) CBC, AM (09/04/2024 5:22 AM EDT) WBC 9.6 3.8 - 10.8 10E3/uL 09/04/2024 5:50 AM EDT [facility] RBC 2.35(L) 4.20 - 5.80 10E6/uL 09/04/2024 5:50 AM EDT [facility] Hemoglobin 8.5(L) 13.2 - 17.1 g/dL 09/04/2024 5:50 AM EDT [facility] Hematocrit 23.1(L) 38.5 - 50.0 % 09/04/2024 5:50 AM EDT [facility] MCV 98.6 80.0 - 100.0 fL 09/04/2024 5:50 AM EDT [facility] MCH 36.3(H) 27.0 - 33.0 pg 09/04/2024 5:50 AM EDT [facility] MCHC 36.8(H) 32.0 - 36.0 g/dL 09/04/2024 5:50 AM EDT [facility] RDW 23.1(H) 11.0 - 15.0 % 09/04/2024 5:50 AM EDT [facility] Platelets 41(L) 140 - 400 10E3/uL 09/04/2024 5:50 AM EDT [facility] Comment: CNV Specimen checked for clots. None detected. MPV 9.5 7.5 - 11.5 fL 09/04/2024 5:50 AM EDT [facility] Whole Blood 09/04/2024 5:22 AM EDT 09/04/2024 5:38 AM EDT Kiet Ramirez MD LAB BLOOD ORDERABLES Denisse l Result Performing Organization Address City/[facility]/ZIP Co de Phone Number [facility] [address] [facility]. [address] * Magnesium (09/04/2024 2:20 AM EDT) Magnesium 2.5 1.5 - 2.5 mg/dL 09/04/2024 2:54 AM EDT [facility] Plasma 09/04/2024 2:20 AM EDT 09/04/2024 2:39 AM EDT Kiet Ramirez MD LAB BLOOD ORDERABLES Denisse l Result [facility] [address] * (ABNORMAL) Basic Metabolic Panel (09/04/2024 2:20 AM EDT) Sodium 133 133 - 146 mmol/L 09/04/2024 2:54 AM EDT [facility] Potassium 3.8 3.5 - 5.3 mmol/L 09/04/2024 2:54 AM EDT [facility] Chloride 103 98 - 110 mmol/L 09/04/2024 2:54 AM EDT [facility] CO2 18(L) 21 - 33 mmol/L 09/04/2024 2:54 AM EDT [facility] Anion Gap 12 3 - 16 mmol/L 09/04/2024 2:54 AM EDT [facility] BUN 41(H) 7 - 25 mg/dL 09/04/2024 2:54 AM EDT [facility] Creatinine 3.36(H) 0.60 - 1.30 mg/dL 09/04/2024 2:54 AM EDT [facility] Glucose 145(H) 70 - 100 mg/dL 09/04/2024 2:54 AM EDT [facility] Calcium 9.0 8.6 - 10.3 mg/dL 09/04/2024 2:54 AM EDT [facility] Osmolality, Calculated 289 278 - 305 mOsm/kg 09/04/2024 2:54 AM EDT [facility] EGFR 23 09/04/2024 2:54 AM EDT [facility] Comment:As of 2021, the estimated [...] Disease. Am J Kidney Dis. 2020. Plasma 09/04/2024 2:20 AM EDT 09/04/2024 2:39 AM EDT us Kiet Ramirez MD LAB BLOOD ORDERABLES Denisse valle Result [facility] [address] [place] [address], [place] [facility] * Magnesium (09/03/2024 9:50 PM EDT) Magnesium 2.5 1.5 - 2.5 mg/dL 09/03/2024 10:14 PM EDT [facility] Plasma 09/03/2024 9:50 PM EDT 09/03/2024 9:56 PM EDT us Kiet Ramirez MD LAB BLOOD ORDERABLES Denisse tori Result [facility] [address], [place] [address] * (ABNORMAL) Basic Metabolic Panel (09/03/2024 9:50 PM EDT) Sodium 131(L) 133 - 146 mmol/L 09/03/2024 10:14 PM EDT [facility] Potassium 4.2 3.5 - 5.3 mmol/L 09/03/2024 10:14 PM EDT [facility] Chloride 102 98 - 110 mmol/L 09/03/2024 10:14 PM EDT [facility] CO2 17(L) 21 - 33 mmol/L 09/03/2024 10:14 PM EDT [facility] Anion Gap 12 3 - 16 mmol/L 09/03/2024 10:14 PM EDT [facility] BUN 41(H) 7 - 25 mg/dL 09/03/2024 10:14 PM EDT [facility] Creatinine 3.44(H) 0.60 - 1.30 mg/dL 09/03/2024 10:14 PM EDT [facility] Glucose 194(H) 70 - 100 mg/dL 09/03/2024 10:14 PM EDT [facility] Calcium 8.5(L) 8.6 - 10.3 mg/dL 09/03/2024 10:14 PM EDT [facility] Osmolality, Calculated 287 278 - 305 mOsm/kg 09/03/2024 10:14 PM EDT [facility] EGFR 22 09/03/2024 10:14 PM EDT [facility] Comment:As of 2021, the estimated [...] Disease. Am J Kidney Dis. 2020. Plasma 09/03/2024 9:50 PM EDT 09/03/2024 9:56 PM EDT Kiet Ramirez MD LAB BLOOD ORDERABLES Denisse l Result Performing Organization Address [facility] Co de Phone Number [facility] [address] [place] [address] * (ABNORMAL) Magnesium (09/03/2024 6:16 PM EDT) Magnesium 2.6(H) 1.5 - 2.5 mg/dL 09/03/2024 6:47 PM EDT [facility] Plasma 09/03/2024 6:16 PM EDT 09/03/2024 6:27 PM EDT Kiet Ramirez MD LAB BLOOD ORDERABLES Denisse l Result Performing Organization Address [facility] Co de Phone Number [facility] [address] [place] [address] * (ABNORMAL) Basic Metabolic Panel (09/03/2024 6:16 PM EDT) Sodium 132(L) 133 - 146 mmol/L 09/03/2024 6:47 PM EDT [facility] Potassium 4.1 3.5 - 5.3 mmol/L 09/03/2024 6:47 PM EDT [facility] Chloride 100 98 - 110 mmol/L 09/03/2024 6:47 PM EDT [facility] CO2 17(L) 21 - 33 mmol/L 09/03/2024 6:47 PM EDT [facility] Anion Gap 15 3 - 16 mmol/L 09/03/2024 6:47 PM EDT [facility] BUN 40(H) 7 - 25 mg/dL 09/03/2024 6:47 PM EDT [facility] Creatinine 3.44(H) 0.60 - 1.30 mg/dL 09/03/2024 6:47 PM EDT [facility] Glucose 115(H) 70 - 100 mg/dL 09/03/2024 6:47 PM EDT [facility] Calcium 9.0 8.6 - 10.3 mg/dL 09/03/2024 6:47 PM EDT [facility] Osmolality, Calculated 285 278 - 305 mOsm/kg 09/03/2024 6:47 PM EDT [facility] EGFR 22 09/03/2024 6:47 PM EDT [facility] Comment:As of 2021, the estimated [...] Disease. Am J Kidney Dis. 2020. Plasma 09/03/2024 6:16 PM EDT 09/03/2024 6:27 PM EDT us Kiet Ramirez MD LAB BLOOD ORDERABLES Denisse valle Result [facility] [address] [id number], [facility] * (ABNORMAL) Venous Blood Gas, Line/Syringe, STAT (09/03/2024 5:26 PM EDT) PH-Line Draw 7.32 7.32 - 7.42 09/03/2024 5:40 PM EDT [facility] PCO2-Line Draw 33(L) 41 - 51 mm Hg 09/03/2024 5:40 PM EDT [facility] PO2-Line Draw 32 25 - 40 mm Hg 09/03/2024 5:40 PM EDT [facility] HCO3-Line Draw 18(L) 24 - 28 mmol/L 09/03/2024 5:40 PM EDT [facility] CO2 Content-Line Draw 18(L) 25 - 29 mmol/L 09/03/2024 5:40 PM EDT [facility] Base Excess-Line Draw -8.2(L) -2.0 - 3.0 mmol/L 09/03/2024 5:40 PM EDT [facility] %HBO2-Line Draw 53.4 40.0 - 70.0 % 09/03/2024 5:40 PM EDT [facility] Carboxyhgb-Ludivina e Draw 1.4 % 09/03/2024 5:40 PM EDT [facility] Comment: CARBOXYHEMOGLOBIN (CO) REFERENCE RANGES: Non-Smokers: <2 % Smokers: <8 % TOXIC: >20 % Methemoglobin- Line Draw 0.7 0.0 - 1.5 % 09/03/2024 5:40 PM EDT [facility] Reduced Hemoglobin-Ludivina e Draw 44.5(H) 0.0 - 5.0 % 09/03/2024 5:40 PM EDT [facility] Venous, Line Draw 09/03/2024 5:26 PM EDT 09/03/2024 5:38 PM EDT us Kiet Ramirez MD LAB BLOOD ORDERABLES eDnisse valle Result [facility] [address] [place] [address], [facility] * (ABNORMAL) CBC (09/03/2024 5:26 PM EDT) WBC 9.9 3.8 - 10.8 10E3/uL 09/03/2024 6:28 PM EDT [facility] RBC 2.35(L) 4.20 - 5.80 10E6/uL 09/03/2024 6:28 PM EDT [facility] Hemoglobin 8.4(L) 13.2 - 17.1 g/dL 09/03/2024 6:28 PM EDT [facility] Hematocrit 23.1(L) 38.5 - 50.0 % 09/03/2024 6:28 PM EDT [facility] MCV 98.3 80.0 - 100.0 fL 09/03/2024 6:28 PM EDT [facility] MCH 35.5(H) 27.0 - 33.0 pg 09/03/2024 6:28 PM EDT [facility] MCHC 36.2(H) 32.0 - 36.0 g/dL 09/03/2024 6:28 PM EDT [facility] RDW 22.8(H) 11.0 - 15.0 % 09/03/2024 6:28 PM EDT [facility] Platelets 42(L) 140 - 400 10E3/uL 09/03/2024 6:28 PM EDT [facility] Comment: _Platelets Appear Decreased Slide Reviewed for PLT Clumps. None Seen. Specimen checked for clots. None detected. Platelet Estimate Decreased 09/03/2024 6:28 PM EDT [facility] MPV 8.9 7.5 - 11.5 fL 09/03/2024 6:28 PM EDT [facility] Whole Blood 09/03/2024 5:26 PM EDT 09/03/2024 5:47 PM EDT Narrative [facility] - 09/03/2024 6:28 PM EDT Peripheral blood smear was scanned per review criteria approved by the laboratory medical photographer. Kiet Ramirez MD LAB BLOOD ORDERABLES Denisse valle Result [facility] [address] [facility] [place] [address], [facility] * MRSA/Staph aureus DNA ??? Diagnostic testing for pneumonia (09/03/2024 3:21 PM EDT) Pathologist [facility] MRSA, PCR Negative Negative 09/03/2024 7:48 PM EDT [facility] Staph Aureus, PCR Negative Negative 09/03/2024 7:48 PM EDT [facility] Comment:Test method is a FDA approved amplified DNA assay. Nares Swab BOTH ANTERIOR NARES / Unknown 09/03/2024 3:21 PM EDT 09/03/2024 4:25 PM EDT Narrative [facility] - 09/03/2024 7:48 PM EDT Diagnosis of MRSA Pneumonia->Yes - Place [id number] (this order) us Kiet Ramirez MD MICROBIOLOGY - GENERAL OR DERABLES Final Result [facility] [address] [facility] [place] [address], [facility] * (ABNORMAL) Urine Drug Screen without Confirmation, STAT (09/03/2024 3:21 PM EDT) Amphetamine, 500 ng/mL Cutoff Negative Negative 09/03/2024 4:17 PM EDT [facility] Barbiturates UR, 300 ng/mL Cutoff Negative Negative 09/03/2024 4:17 PM EDT [facility] Buprenorphine, 5 ng/mL Cutoff Negative Negative 09/03/2024 4:17 PM EDT [facility] Benzodiazepines UR, 300 ng/mL Cutoff Negative Negative 09/03/2024 4:17 PM EDT [facility] Cocaine UR, 300 ng/mL Cutoff Negative Negative 09/03/2024 4:17 PM EDT [facility] Methadone, UR, 300 ng/mL Cutoff Negative Negative 09/03/2024 4:17 PM EDT [facility] Opiates UR, 300 ng/mL Cutoff Presumptive Positive(A) Negative 09/03/2024 4:17 PM EDT [facility] Oxycodone, 100 ng/mL Cutoff Negative Negative 09/03/2024 4:17 PM EDT [facility] Tricyclic Antidepressants, 300 ng/mL Cutoff Negative Negative 09/03/2024 4:17 PM EDT [facility] Comment:This test has been d eveloped and its performance characteristics determined by [facility] which is certified under the Clinical Laboratory Improvement Amendment of 1988 (CLIA-88) to perform high complexity testing. The test has not been cleared or approved by the US Food and Drug Administration (FDA). The FDA has determined that such clearance is not necessary. The test should be used for clinical purposes and is not regarded as investigational. THC UR, 50 ng/mL Cutoff Negative Negative 09/03/2024 4:17 PM EDT [facility] Comment:This is a screening method only and may be associated with false positive and/or false negative results. Results are not definitive without additional confirmatory testing by mass spectrometry. Fentanyl, 2 ng/mL Cutoff Negative Negative 09/03/2024 4:17 PM EDT [facility] Comment:This test has been d eveloped and its performance characteristics determined by [facility] which is certified under the Clinical Laboratory Improvement Amendment of 1988 (CLIA-88) to perform high complexity testing. The test has not been cleared or approved by the US Food and Drug Administration (FDA). The FDA has determined that such clearance is not necessary. The test should be used for clinical purposes and is not regarded as investigational. Urine 09/03/2024 3:21 PM EDT 09/03/2024 3:30 PM EDT Kiet Ramirez MD URINE ORDERABLES Final Re sult [facility] [address] [id number], [facility] * (ABNORMAL) Venous Blood Gas, Line/Syringe (09/03/2024 3:21 PM EDT) PH-Line Draw 7.24(L) 7.32 - 7.42 09/03/2024 3:30 PM EDT [facility] PCO2-Line Draw 37(L) 41 - 51 mm Hg 09/03/2024 3:30 PM EDT [facility] PO2-Line Draw 39 25 - 40 mm Hg 09/03/2024 3:30 PM EDT [facility] HCO3-Line Draw 16(L) 24 - 28 mmol/L 09/03/2024 3:30 PM EDT [facility] CO2 Content-Line Draw 17(L) 25 - 29 mmol/L 09/03/2024 3:30 PM EDT [facility] Base Excess-Line Draw -10.6(L) -2.0 - 3.0 mmol/L 09/03/2024 3:30 PM EDT [facility] %HBO2-Line Draw 62.6 40.0 - 70.0 % 09/03/2024 3:30 PM EDT [facility] Carboxyhgb-Ludivina e Draw 1.5 % 09/03/2024 3:30 PM EDT [facility] Comment: CARBOXYHEMOGLOBIN (CO) REFERENCE RANGES: Non-Smokers: <2 % Smokers: <8 % TOXIC: >20 % Methemoglobin- Line Draw 1.0 0.0 - 1.5 % 09/03/2024 3:30 PM EDT [facility] Reduced Hemoglobin-Ludivina e Draw 34.9(H) 0.0 - 5.0 % 09/03/2024 3:30 PM EDT [facility] Venous, Line Draw 09/03/2024 3:21 PM EDT 09/03/2024 3:27 PM EDT Kiet Ramirez MD LAB BLOOD ORDERABLES Denisse l Result Performing Organization Address City/[facility] Co de Phone Number [facility] [address] * Urea Nitrogen, Urine (09/03/2024 3:21 PM EDT) Urea Nitrogen, Ur 350 mg/dL 09/03/2024 4:12 PM EDT [facility] Comment:Reference range not established for this test. Urine 09/03/2024 3:21 PM EDT 09/03/2024 3:30 PM EDT Kiet Ramirez MD URINE ORDERABLES Final Re sult Performing Organization Address City/[facility] Co de Phone Number [facility] [address] * Sodium, Urine, Random (09/03/2024 3:21 PM EDT) Sodium, Ur <10 mmol/L 09/03/2024 4:19 PM EDT [facility] Comment:Reference range not established for this test. Urine 09/03/2024 3:21 PM EDT 09/03/2024 3:30 PM EDT Kiet Ramirez MD URINE ORDERABLES Final Re sult Performing Organization Address City/[facility] Co de Phone Number [facility] [address] [facility]. [address] * Potassium, Urine, Random (09/03/2024 3:21 PM EDT) Potassium Urine Random 23.0 mmol/L 09/03/2024 4:19 PM EDT [facility] Comment:Reference range not established for this test. Urine 09/03/2024 3:21 PM EDT 09/03/2024 3:30 PM EDT us Kiet Ramirez MD URINE ORDERABLES Final Re sult Performing Organization Address [facility] Co de Phone Number [facility] [address] [facility]. [address] * Creatinine, Urine, Random (09/03/2024 3:21 PM EDT) Creatinine, Urine 127.80 mg/dL 09/03/2024 4:19 PM EDT [facility] Comment:Reference range not established for this test. Urine 09/03/2024 3:21 PM EDT 09/03/2024 3:30 PM EDT Kiet Ramirez MD URINE ORDERABLES Final Re sult Performing Organization Address City/[facility] Co de Phone Number [facility] [address] [facility]. [address] * Chloride, Urine, Random (09/03/2024 3:21 PM EDT) Chloride, Ur <15 mmol/L 09/03/2024 4:19 PM EDT [facility] Comment:Reference range not established for this test. Urine 09/03/2024 3:21 PM EDT 09/03/2024 3:30 PM EDT Kiet Ramirez MD URINE ORDERABLES Final Re sult Performing Organization Address [facility]/ZIP Co de Phone Number [facility] [address] * Magnesium (09/03/2024 3:21 PM EDT) Magnesium 2.1 1.5 - 2.5 mg/dL 09/03/2024 3:50 PM EDT [facility] Plasma 09/03/2024 3:21 PM EDT 09/03/2024 3:27 PM EDT Kiet Ramirez MD LAB BLOOD ORDERABLES Denisse l Result Performing Organization Address [facility] Co de Phone Number [facility] [address] * (ABNORMAL) Basic Metabolic Panel (09/03/2024 3:21 PM EDT) Sodium 133 133 - 146 mmol/L 09/03/2024 3:50 PM EDT [facility] Potassium 2.9(LL) 3.5 - 5.3 mmol/L 09/03/2024 3:50 PM EDT [facility] Comment:Critical Result K:2. 9 Called to and read back by: LENA DON RN at: 09/03/2024 15:50:10 by:CAMILA Chloride 95(L) 98 - 110 mmol/L 09/03/2024 3:50 PM EDT [facility] CO2 15(L) 21 - 33 mmol/L 09/03/2024 3:50 PM EDT [facility] Anion Gap 23(H) 3 - 16 mmol/L 09/03/2024 3:50 PM EDT [facility] BUN 36(H) 7 - 25 mg/dL 09/03/2024 3:50 PM EDT [facility] Creatinine 3.16(H) 0.60 - 1.30 mg/dL 09/03/2024 3:50 PM EDT [facility] Glucose 91 70 - 100 mg/dL 09/03/2024 3:50 PM EDT [facility] Calcium 7.8(L) 8.6 - 10.3 mg/dL 09/03/2024 3:50 PM EDT [facility] Osmolality, Calculated 284 278 - 305 mOsm/kg 09/03/2024 3:50 PM EDT [facility] EGFR 24 09/03/2024 3:50 PM EDT [facility] Comment:As of 2021, the estimated [...] Disease. Am J Kidney Dis. 2020. Plasma 09/03/2024 3:21 PM EDT 09/03/2024 3:27 PM EDT us Kiet Ramirez MD LAB BLOOD ORDERABLES Denisse valle Result [facility] [address] [id number], [facility] * Ethanol, Serum (09/03/2024 1:43 PM EDT) Ethanol <10 0 - 10 mg/dL 09/03/2024 3:08 PM EDT [facility] Serum 09/03/2024 1:43 PM EDT 09/03/2024 1:47 PM EDT Kiet Ramirez MD LAB BLOOD ORDERABLES Denisse l Result Performing Organization Address [facility] Co de Phone Number [facility] [address] [place] [address]. [address] * T4, Free (09/03/2024 1:43 PM EDT) Free T4 0.74 0.61 - 1.76 ng/dL 09/03/2024 6:34 PM EDT [facility] Comment:Biotin megadosing (c onsumption >300 mcg/day) may falsely elevate free T4. When indicated, discontinue megadosing for 1 week and repeat testing. Serum 09/03/2024 1:43 PM EDT 09/03/2024 2:17 PM EDT Kiet Ramirez MD LAB BLOOD ORDERABLES Denisse l Result Performing Organization Address [facility] Co de Phone Number [facility] [address] [place] [address]. [address] * TSH (09/03/2024 1:43 PM EDT) Pathologist [facility] TSH 0.92 0.45 - 4.12 uIU/mL 09/03/2024 6:30 PM EDT [facility] Serum 09/03/2024 1:43 PM EDT 09/03/2024 2:17 PM EDT Kiet Ramirez MD LAB BLOOD ORDERABLES Denisse l Result Performing Organization Address City/[facility] Co de Phone Number [facility] [address] [place] [address]. [address] * Hepatitis B surface antigen (09/03/2024 1:43 PM EDT) Pathologist [facility] Hep B Surface Ag Nonreactive Nonreactive 09/03/2024 3:54 PM EDT [facility] Comment:Health Department no tified in accordance with reportable infectious disease guidelines. Serum 09/03/2024 1:43 PM EDT 09/03/2024 2:17 PM EDT [facility] - 09/03/2024 3:54 PM EDT The result will be immediately released to [facility] when marked final. Do you believe the result release to [facility] should be delayed based on either the Preventing Harm or Privacy exceptions of the Cures Rule?->No Specimen is considered negative for HBsAg. Kiet Ramirez MD LAB BLOOD ORDERABLES Denisse l Result Performing Organization Address [facility] de Phone Number [facility] [address] [place] [address] * Hepatitis B Core IgM (09/03/2024 1:43 PM EDT) Hep B Core IgM Nonreactive Nonreactive 09/03/2024 3:50 PM EDT [facility] Serum 09/03/2024 1:43 PM EDT 09/03/2024 2:17 PM EDT [facility] - 09/03/2024 3:50 PM EDT The result will be immediately released to [facility] when marked final. Do you believe the result release to [facility] should be delayed based on either the Preventing Harm or Privacy exceptions of the Cures Rule?->No IgM anti-HBc not detected. Does not exclude the possibility of exposure to or infection with HBV. Kiet Ramirez MD LAB BLOOD ORDERABLES Denisse l Result Performing Organization Address [facility] Co de Phone Number [facility] [address] [place] [address]. [address] * Hepatitis A IgM (09/03/2024 1:43 PM EDT) Hep A IgM Nonreactive Nonreactive 09/03/2024 3:49 PM EDT [facility] Serum 09/03/2024 1:43 PM EDT 09/03/2024 2:17 PM EDT [facility] - 09/03/2024 3:49 PM EDT The result will be immediately released to [facility] when marked final. Do you believe the result release to [facility] should be delayed based on either the Preventing Harm or Privacy exceptions of the Cures Rule?->No IgM anti-HAV not detected. Does not exclude the possibility of exposure to or infection with HAV. Levels of IgM anti-HAV may be below the cut-off in early infection. Kiet Ramirez MD LAB BLOOD ORDERABLES Denisse l Result Performing Organization Address [facility] Co de Phone Number [facility] [address] * Hepatitis C Antibody (09/03/2024 1:43 PM EDT) HCV Ab Nonreactive Nonreactive 09/03/2024 3:58 PM EDT [facility] Comment:Health Department no tified in accordance with reportable infectious disease guidelines. Serum 09/03/2024 1:43 PM EDT 09/03/2024 2:17 PM EDT Narrative [facility] - 09/03/2024 3:58 PM EDT The result will be immediately released to [facility] when marked final. Do you believe the result release to [facility] should be delayed based on either the Preventing Harm or Privacy exceptions of the Cures Rule?->No Antibodies to HCV not detected; does not exclude the possibility of exposure to HCV. Kiet Ramirez MD LAB BLOOD ORDERABLES Denisse l Result Performing Organization Address [facility] Co de Phone Number [facility] [address] [facility]. [address] * Lactic Acid (09/03/2024 1:43 PM EDT) Lactate 1.7 0.5 - 2.2 mmol/L 09/03/2024 2:25 PM EDT [facility] Plasma 09/03/2024 1:43 PM EDT 09/03/2024 1:52 PM EDT Kiet Ramirez MD LAB BLOOD ORDERABLES Denisse l Result [facility] [address] [facility]. [address] * Magnesium (09/03/2024 1:43 PM EDT) Pathologist [facility] Magnesium 2.2 1.5 - 2.5 mg/dL 09/03/2024 2:06 PM EDT [facility] Plasma 09/03/2024 1:43 PM EDT 09/03/2024 1:47 PM EDT Kiet Ramirez MD LAB BLOOD ORDERABLES Denisse l Result Performing Organization Address [facility]/ZIP Co de Phone Number [facility] [address] [facility]. [address] * (ABNORMAL) Basic Metabolic Panel (09/03/2024 1:43 PM EDT) Pathologist [facility] Sodium 131(L) 133 - 146 mmol/L 09/03/2024 2:06 PM EDT [facility] Potassium 3.2(L) 3.5 - 5.3 mmol/L 09/03/2024 2:06 PM EDT [facility] Chloride 100 98 - 110 mmol/L 09/03/2024 2:06 PM EDT [facility] CO2 16(L) 21 - 33 mmol/L 09/03/2024 2:06 PM EDT [facility] Anion Gap 15 3 - 16 mmol/L 09/03/2024 2:06 PM EDT [facility] BUN 40(H) 7 - 25 mg/dL 09/03/2024 2:06 PM EDT [facility] Creatinine 3.52(H) 0.60 - 1.30 mg/dL 09/03/2024 2:06 PM EDT [facility] Glucose 86 70 - 100 mg/dL 09/03/2024 2:06 PM EDT [facility] Calcium 8.5(L) 8.6 - 10.3 mg/dL 09/03/2024 2:06 PM EDT [facility] Osmolality, Calculated 281 278 - 305 mOsm/kg 09/03/2024 2:06 PM EDT [facility] EGFR 21 09/03/2024 2:06 PM EDT [facility] LAB Comment:As of 2021, the estimated GFR [...] Disease. Am J Kidney Dis. 2020. Plasma 09/03/2024 1:43 PM EDT 09/03/2024 1:47 PM EDT us Kiet Ramirez MD LAB BLOOD ORDERABLES Denisse valle Result [facility] [address] [place] [address], [facility] * X-ray Portable Chest (09/03/2024 1:19 PM EDT) Anatomical Region Laterality Modality Chest Radiographic Rachel ging 09/03/2024 12:4 4 PM EDT Impressions 09/03/2024 2:13 PM EDT IMPRESSION: No significant interval change. Report Verified by: Essence Lopez MD at 09/03/2024 2:13 PM EDT Narrative 09/03/2024 2:13 PM EDT EXAM: XR PORTABLE CHEST INDICATION: Altered mental status, unspecified TECHNIQUE: 1 view of the chest. COMPARISON: 6 hours prior FINDINGS: Medical Devices: None. Heart and Mediastinum: Cardiomediastinal silhouette is unchanged. Lungs and Pleura: Hypoexpanded lungs with similar streaky left-sided predominant bibasilar atelectasis or scarring. No large pleural effusions or pneumothorax. Bones and soft tissues: Unchanged. Procedure Note Essence Lopez MD - 09/03/2024 EXAM: XR PORTABLE CHEST INDICATION: Altered mental status, unspecified TECHNIQUE: 1 view of the chest. COMPARISON: 6 hours prior FINDINGS: Medical Devices: None. Heart and Mediastinum: Cardiomediastinal silhouette is unchanged. Lungs and Pleura: Hypoexpanded lungs with similar streaky left-sidedpredominant bibasilar atelectasis or scarring. No large pleural effusionsor pneumothorax. Bones and soft tissues: Unchanged. IMPRESSION: No significant interval change. Report Verified by: Essence Lopez MD at 09/03/2024 2:13 PM EDT Kiet Ramirez MD IMG DIAGNOSTIC IMAGING OR DERABLES Final Result * Phosphorus (09/03/2024 10:49 AM EDT) Phosphorus 2.5 2.1 - 4.7 mg/dL 09/03/2024 11:31 AM EDT [facility] Plasma 09/03/2024 10:4 9 AM EDT 09/03/2024 11:02 AM EDT Kiet Ramirez MD LAB BLOOD ORDERABLES Denisse l Result Performing Organization Address City/[facility]/ZIP Co de Phone Number [facility] [address] * Magnesium (09/03/2024 10:49 AM EDT) Magnesium 1.8 1.5 - 2.5 mg/dL 09/03/2024 11:31 AM EDT [facility] Plasma 09/03/2024 10:4 9 AM EDT 09/03/2024 11:02 AM EDT Kiet Ramirez MD LAB BLOOD ORDERABLES Denisse l Result Performing Organization Address City/[facility]/ZIP Co de Phone Number [facility] [address] * (ABNORMAL) Basic metabolic panel (09/03/2024 10:49 AM EDT) Sodium 133 133 - 146 mmol/L 09/03/2024 11:31 AM EDT [facility] Potassium 2.8(LL) 3.5 - 5.3 mmol/L 09/03/2024 11:31 AM EDT [facility] Comment: K CRITICAL VALUE WAS PREVIOUSLY CALLED CRITICAL CALLED TO LENA DON RN Chloride 101 98 - 110 mmol/L 09/03/2024 11:31 AM EDT [facility] CO2 19(L) 21 - 33 mmol/L 09/03/2024 11:31 AM EDT [facility] Anion Gap 13 3 - 16 mmol/L 09/03/2024 11:31 AM EDT [facility] BUN 39(H) 7 - 25 mg/dL 09/03/2024 11:31 AM EDT [facility] Creatinine 3.26(H) 0.60 - 1.30 mg/dL 09/03/2024 11:31 AM EDT [facility] Glucose 84 70 - 100 mg/dL 09/03/2024 11:31 AM EDT [facility] Calcium 8.6 8.6 - 10.3 mg/dL 09/03/2024 11:31 AM EDT [facility] Osmolality, Calculated 285 278 - 305 mOsm/kg 09/03/2024 11:31 AM EDT [facility] EGFR 23 09/03/2024 11:31 AM EDT [facility] Comment:As of 2021, the estimated [...] be reported as >90mL/min/1.73m2. Reference: Luis Eduardo Cohn, Talia M, Olivia DC, Emerita ND, Madelyn CA, Felicia LA, et al. A Unifying Approach for GFR Estimation: Recommendations of the NKF-ASN Task Force on Reassessing the inclusion of Race in Diagnosing Kidney Disease. Am J Kidney Dis. 2020. Plasma 09/03/2024 10:4 9 AM EDT 09/03/2024 11:02 AM EDT us Kiet Ramirez MD LAB BLOOD ORDERABLES Denisse tori Result [facility] [address] [place] [id number], [facility] * US Abdomen Complete (09/03/2024 10:30 AM EDT) Anatomical Region Laterality Modality Abdomen Ultrasound 09/03/2024 10:0 8 AM EDT Impressions 09/03/2024 11:01 AM EDT IMPRESSION: ABDOMEN Cirrhosis and stigmata of portal hypertension including ascites. No focal hepatic lesion. 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 FINDINGS: Liver: Increased echogenicity of the liver with nodular contour. No focal hepatic lesions Biliary/CBD: 5 mm. No intra or extrahepatic ductal dilatation. Gallbladder: Cholelithiasis. No wall thickening or pericholecystic fluid. Sonographic Mehta sign is negative Pancreas: Obscured by overlying bowel gas. Right kidney: 11.3 cm in length. Normal parenchymal echogenicity. No hydronephrosis. Nonobstructing right renal calculi are better seen on the recent CT Left kidney: 13 cm in length. Normal parenchymal echogenicity. No hydronephrosis. Recently described partially calcified left renal lesion is not well seen Spleen: 19.1 cm. Aorta and IVC: Aorta is mostly obscured by overlying bowel gas. The IVC is color doppler patent. Other: Ascites DOPPLER: Hepatic Veins: Duplex evaluation of the hepatic vasculature demonstrates normal flow in the right, middle and left hepatic veins. 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 Reversed flow in the main portal vein. Recannulized paraumbilical vein Hepatic Arteries: Right, main and left hepatic arteries demonstrate normal waveforms. Resistive Indices Main hepatic artery: 0.65-0.7 Right hepatic artery: 0.69-0.74 Left hepatic artery: 0.71-0.72 Procedure Note Siomara Pantoja MD - 09/03/2024 EXAM: US ABDOMEN COMPLETE EXAM: US DUPLEX [id number] COMPLETE INDICATION: Evaluate for cholecystitis COMPARISON: 09/03/2024 TECHNIQUE: Grayscale imaging was performed for evaluation of the liver,gallbladder, common bile duct, pancreas, spleen, and kidneys; color andspectral (duplex) Doppler analysis of the hepatic vasculature was alsoperformed. FINDINGS: Liver: Increased echogenicity of the liver with nodular contour. No focalhepatic lesions Biliary/CBD: 5 mm. No intra or extrahepatic ductal dilatation. Gallbladder: Cholelithiasis. No wall thickening or pericholecystic fluid.Sonographic Mehta sign is negative Pancreas: Obscured by overlying bowel gas. Right kidney: 11.3 cm in length. Normal parenchymal echogenicity. Nohydronephrosis. Nonobstructing right renal calculi are better seen on therecent CT Left kidney: 13 cm in length. Normal parenchymal echogenicity. Nohydronephrosis. Recently described partially calcified left renal lesionis not well seen Spleen: 19.1 cm. Aorta and IVC: Aorta is mostly obscured by overlying bowel gas. The IVCis color doppler patent. Other: Ascites DOPPLER: Hepatic Veins: Duplex evaluation of the hepatic vasculature demonstratesnormal flow in the right, middle and left hepatic veins. Portal Veins: There is cavernous transformation of the left portal veinwith areas of reversed and bidirectional flow in the right and leftintrahepatic portal veins. Reversed flow in the main portal vein.Recannulized paraumbilical vein Hepatic Arteries: Right, main and left hepatic arteries demonstrate normalwaveforms. Resistive Indices Main hepatic artery: 0.65-0.7 Right hepatic artery: 0.69-0.74 Left hepatic artery: 0.71-0.72 IMPRESSION: ABDOMEN Cirrhosis and stigmata of portal hypertension including ascites. No focalhepatic lesion. 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 No focal hepatic lesion. 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 FINDINGS: Liver: Increased echogenicity of the liver with nodular contour. No focal hepatic lesions Biliary/CBD: 5 mm. No intra or extrahepatic ductal dilatation. Gallbladder: Cholelithiasis. No wall thickening or pericholecystic fluid. Sonographic Mehta sign is negative Pancreas: Obscured by overlying bowel gas. Right kidney: 11.3 cm in length. Normal parenchymal echogenicity. No hydronephrosis. Nonobstructing right renal calculi are better seen on the recent CT Left kidney: 13 cm in length. Normal parenchymal echogenicity. No hydronephrosis. Recently described partially calcified left renal lesion is not well seen Spleen: 19.1 cm. Aorta and IVC: Aorta is mostly obscured by overlying bowel gas. The IVC is color doppler patent. Other: Ascites DOPPLER: Hepatic Veins: Duplex evaluation of the hepatic vasculature demonstrates normal flow in the right, middle and left hepatic veins. 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 Reversed flow in the main portal vein. Recannulized paraumbilical vein Hepatic Arteries: Right, main and left hepatic arteries demonstrate normal waveforms. Resistive Indices Main hepatic artery: 0.65-0.7 Right hepatic artery: 0.69-0.74 Left hepatic artery: 0.71-0.72 Procedure Note Siomara Pantoja MD - 09/03/2024 EXAM: US ABDOMEN COMPLETE EXAM: US DUPLEX [id number] COMPLETE INDICATION: Evaluate for cholecystitis COMPARISON: 09/03/2024 TECHNIQUE: Grayscale imaging was performed for evaluation of the liver,gallbladder, common bile duct, pancreas, spleen, and kidneys; color andspectral (duplex) Doppler analysis of the hepatic vasculature was alsoperformed. FINDINGS: Liver: Increased echogenicity of the liver with nodular contour. No focalhepatic lesions Biliary/CBD: 5 mm. No intra or extrahepatic ductal dilatation. Gallbladder: Cholelithiasis. No wall thickening or pericholecystic fluid.Sonographic Mehta sign is negative Pancreas: Obscured by overlying bowel gas. Right kidney: 11.3 cm in length. Normal parenchymal echogenicity. Nohydronephrosis. Nonobstructing right renal calculi are better seen on therecent CT Left kidney: 13 cm in length. Normal parenchymal echogenicity. Nohydronephrosis. Recently described partially calcified left renal lesionis not well seen Spleen: 19.1 cm. Aorta and IVC: Aorta is mostly obscured by overlying bowel gas. The IVCis color doppler patent. Other: Ascites DOPPLER: Hepatic Veins: Duplex evaluation of the hepatic vasculature demonstratesnormal flow in the right, middle and left hepatic veins. Portal Veins: There is cavernous transformation of the left portal veinwith areas of reversed and bidirectional flow in the right and leftintrahepatic portal veins. Reversed flow in the main portal vein.Recannulized paraumbilical vein Hepatic Arteries: Right, main and left hepatic arteries demonstrate normalwaveforms. Resistive Indices Main hepatic artery: 0.65-0.7 Right hepatic artery: 0.69-0.74 Left hepatic artery: 0.71-0.72 IMPRESSION: ABDOMEN Cirrhosis and stigmata of portal hypertension including ascites. No focalhepatic lesion. Cholelithiasis with no sonographic evidence of acute cholecystitis LIVER DOPPLER Reversed flow in the portal veins with cavernous transformation of theleft portal vein Patent hepatic arteries and hepatic veins Report Verified by: Siomara Pantoja MD at 09/03/2024 11:01 AM EDT us Jarrod Alas MD IMG US ORDERABLES Final Result * (ABNORMAL) Urinalysis, Microscopic (09/03/2024 10:28 AM EDT) RBC, UA 1 0 - 3 /HPF 09/03/2024 11:51 AM EDT [facility] WBC, UA 1 0 - 5 /HPF 09/03/2024 11:51 AM EDT [facility] Squam Epithel, UA <1 0 - 5 /HPF 09/03/2024 11:51 AM EDT [facility] Bacteria, UA Occasional (A) None Seen /HPF 09/03/2024 11:51 AM EDT [facility] Mucus, UA Present(A) None Seen /HPF 09/03/2024 11:51 AM EDT [facility] Urine 09/03/2024 10:2 8 AM EDT 09/03/2024 11:24 AM EDT us Kiet Ramirez MD URINE ORDERABLES Final Re sult [facility] [address] [place] [id number] * (ABNORMAL) Urinalysis-Macroscopic w/Rfx to Microsco (09/03/2024 10:28 AM EDT) Color, UA Yellow Yellow,Straw 09/03/2024 11:51 AM EDT [facility] Clarity, UA Cloudy(A) Clear 09/03/2024 11:51 AM EDT [facility] Specific [place], UA >1.035(H) 1.005 - 1.035 09/03/2024 11:51 AM EDT [facility] pH, UA 6.5 5.0 - 8.0 09/03/2024 11:51 AM EDT [facility] Protein, UA Trace(A) Negative mg/dL 09/03/2024 11:51 AM EDT [facility] Glucose, UA Negative Negative mg/dL 09/03/2024 11:51 AM EDT [facility] Ketones, UA Negative Negative mg/dL 09/03/2024 11:51 AM EDT [facility] Bilirubin, UA Small(A) Negative 09/03/2024 11:51 AM EDT [facility] Blood, UA Negative Negative 09/03/2024 11:51 AM EDT [facility] Nitrite, UA Negative Negative 09/03/2024 11:51 AM EDT [facility] Urobilinogen, UA <2.0 0.2 - 1.9 mg/dL 09/03/2024 11:51 AM EDT [facility] Leukocyte Esterase, UA Negative Negative 09/03/2024 11:51 AM EDT [facility] Urine 09/03/2024 10:2 8 AM EDT 09/03/2024 10:55 AM EDT us Kiet Ramirez MD URINE ORDERABLES Final Re sult [facility] [address] * #1 Blood culture-Peripheral site 1 (09/03/2024 8:10 AM EDT) Culture Result No Growth After 5 Days [facility] Blood BLOOD SPECIMEN / Unknown 09/03/2024 8:10 AM EDT 09/03/2024 8:57 AM EDT Narrative [facility] - 09/08/2024 9:00 AM EDT One aerobic bottle was received Suboptimal volume of blood received. Interpret results with caution. us Jarrod Alas MD MICROBIOLOGY - GENERAL ORDERAB LES Final Result Performing Organization Address City/[facility]/ZIP Co de Phone Number [facility] [address] * #2 Blood culture-Peripheral site 2 (09/03/2024 7:55 AM EDT) Culture Result No Growth After 5 Days [facility] Blood BLOOD SPECIMEN / Unknown 09/03/2024 7:55 AM EDT 09/03/2024 8:40 AM EDT Narrative [facility] - 09/08/2024 8:45 AM EDT Suboptimal volume of blood received. Interpret results with caution. Jarrod Alas MD MICROBIOLOGY - GENERAL ORDERAB LES Final Result [facility] [address] [facility]. [address] * Lactic acid, venous (09/03/2024 7:55 AM EDT) Pathologist [facility] Lactate, Shakeel 1.8 0.5 - 2.2 mmol/L 09/03/2024 8:02 AM EDT [facility] Whole Blood VENOUS STRUCTURE / Unknown 09/03/2024 7:55 AM EDT 09/03/2024 7:59 AM EDT Jarrod Alas MD LAB BLOOD ORDERABLES Final Res ult [facility] [address] [facility]. [address] * High Sensitivity Troponin (60min) (09/03/2024 7:18 AM EDT) Pathologist [facility] High Sensitivity Troponin 14 0 - 20 ng/L 09/03/2024 7:49 AM EDT [facility] Serum 09/03/2024 7:18 AM EDT 09/03/2024 7:18 AM EDT Narrative [facility] - 09/03/2024 7:49 AM EDT Please draw 60min after time that first troponin is drawn. Rommel Mccoy MD LAB BLOOD ORDERABLES Final Resul t [facility] [address] [place] [address], [facility] * Paracentesis (09/03/2024 7:01 AM EDT) Ana Maria Hernandez MD - 09/03/2024 7:01 AM EDT Rommel Mccoy MD 09/03/2024 7:02 AM Paracentesis Date/Time: 09/03/2024 7:01 AM Performed by: Rommel Mccoy MD Authorized by: Ana Maria Ramey MD Consent: Consent obtained: Written Consent given by: Patient Risks, benefits, and alternatives were discussed: yes Risks discussed: Bleeding, bowel perforation, infection and pain Alternatives discussed: No treatment [place] protocol: Procedure explained and questions answered to patient or proxy's satisfaction: yes Relevant documents present and verified: yes Test results available: yes Imaging studies available: yes Required blood products, implants, devices, and special equipment available: yes Site/side marked: yes Immediately prior to procedure, a time out was called: yes Patient identity confirmed: Verbally with patient, hospital-assigned identification number and arm band Pre-procedure details: Procedure purpose: Diagnostic Preparation: Patient was prepped and draped in usual sterile fashion Anesthesia: Anesthesia method: Local infiltration Local anesthetic: Lidocaine 1% WITH epi Procedure details: Needle gauge: 18 Ultrasound guidance: used to identify site. Puncture site: L lower quadrant Fluid removed amount: 1L Fluid appearance: Radha and bloody Dressinx4 sterile gauze and adhesive bandage Post-procedure details: Procedure completion: Tolerated us Ana Maria Ramey MD PROCEDURE/MINOR SURGICAL ORDERA BLES Final Result * Albumin, fluid (09/03/2024 6:46 AM EDT) Albumin, Fluid <1.5 g/dL 09/03/2024 8:22 AM EDT [facility] Comment:Reference range not established for this test. Abdominal Fluid ABDOMEN / Unknown 025 6:46 AM EDT 09/03/2024 6:59 AM EDT Narrative [facility] - 09/03/2024 8:22 AM EDT This assay has been modified from the optimization specialist's specifications and has been validated with performance characteristics determined by [facility] in accordance with federal regulations under the Clinical Laboratory Act Amendment of 1988. The modification has not been approved by the FDA which has determined that such approval is not necessary. The test is for clinical purposes and should not be regarded as investigational or for research use. us Rommel Mcocy MD BODY FLUIDS AND STOOLS ORDERABLE S Final Result Performing Organization Address [facility] de Phone Number [facility] [address] * Protein, body fluid (09/03/2024 6:46 AM EDT) Protein, Fluid <3.0 g/dL 09/03/2024 8:22 AM EDT [facility] Comment:Reference range not established for this test. Paracentesis Fluid ABDOMEN / Unknown 08/13 6:46 AM EDT 09/03/2024 6:59 AM EDT [facility] - 09/03/2024 8:22 AM EDT This assay has been modified from the optimization specialist's specifications and has been validated with performance characteristics determined by [facility] in accordance with federal regulations under the Clinical Laboratory Act Amendment of 1988. The modification has not been approved by the FDA which has determined that such approval is not necessary. The test is for clinical purposes and should not be regarded as investigational or for research use. us Rommel Mccoy MD BODY FLUIDS AND STOOLS ORDERABLE S Final Result Performing Organization Address [facility] de Phone Number [facility] [address] [facility]. [address] * Body fluid cell count (09/03/2024 6:46 AM EDT) Color, Fluid Yellow 09/03/2024 10:15 AM EDT [facility] Clarity, Fluid Hazy 09/03/2024 10:15 AM EDT [facility] Neutrophil %, Fluid 20 % 09/03/2024 10:15 AM EDT [facility] Lymphocytes %, Fluid 20 % 09/03/2024 10:15 AM EDT [facility] Mesothelial %, Fluid 40 % 09/03/2024 10:15 AM EDT [facility] Macrophage %, Fluid 20 % 09/03/2024 10:15 AM EDT [facility] RBC, Fluid 3,380 /uL 09/03/2024 10:15 AM EDT [facility] Total Nucleated Cells, Fluid 9 /uL 09/03/2024 10:15 AM EDT [facility] Comment: No abnormal cells are seen. Total Nucleated Cells represent WBCs and other nucleated cells in the fluid such as lining cells. Specimen is greater than 2 hours old. The results must be critically reviewed. CELLUALAR DEGREDATION NOTED. No abnormal cells are seen. Paracentesis Fluid ABDOMEN / Unknown 08/13 6:46 AM EDT 09/03/2024 6:59 AM EDT us Rommel Mccoy MD BODY FLUIDS AND STOOLS ORDERABLE S Final Result Performing Organization Address [facility] Co de Phone Number [facility] [address] [facility]. [address] * Body Fluid Culture plus Stain (09/03/2024 6:46 AM EDT) Gram Stain Result Cytospin Results: [facility] Gram Stain Result No Polymorphonuclear Leukocytes Seen; [facility] Gram Stain Result No Organisms Seen; [facility] Culture Result No Growth After 5 Days [facility] Paracentesis Fluid ABDOMEN / Unknown 08/13 6:46 AM EDT 09/03/2024 6:59 AM EDT us Rommel Mccoy MD MICROBIOLOGY - GENERAL ORDERABLE S Final Result [facility] [address] * X-ray Portable Chest (09/03/2024 6:06 AM EDT) Anatomical Region Laterality Modality Chest Radiographic Rachel ging 09/03/2024 5:31 AM EDT Impressions 09/03/2024 6:25 AM EDT IMPRESSION: No acute cardiopulmonary abnormality. Approved by John Villegas DO on 09/03/2024 6:19 AM EDT I have personally reviewed the images and I agree with this report. Report Verified by: Ian Veronica MD at 09/03/2024 6:25 AM EDT Narrative 09/03/2024 6:25 AM EDT EXAM: XR PORTABLE CHEST INDICATION: Shortness of breath TECHNIQUE: 1 view of the chest. COMPARISON: 08/13/2024 FINDINGS: Medical Devices: None. Heart and Mediastinum: Cardiomediastinal silhouette is within normal limits. Sequela of healed granulomatous disease. Lungs and Pleura: Streaky left basilar parenchymal opacity, likely atelectasis. No large pleural effusions. No pneumothorax. Bones and soft tissues: No acute abnormalities. Partially visualized ACDF hardware. Procedure Note Marvin Veronica MD - 09/03/2024 EXAM: XR PORTABLE CHEST INDICATION: Shortness of breath TECHNIQUE: 1 view of the chest. COMPARISON: 08/13/2024 FINDINGS: Medical Devices: None. Heart and Mediastinum: Cardiomediastinal silhouette is within normallimits. Sequela of healed granulomatous disease. Lungs and Pleura: Streaky left basilar parenchymal opacity, likelyatelectasis. No large pleural effusions. No pneumothorax. Bones and soft tissues: No acute abnormalities. Partially visualized ACDFhardware. IMPRESSION: No acute cardiopulmonary abnormality. Approved by John Villegas DO on 09/03/2024 6:19 AM EDT I have personally reviewed the images and I agree with this report. Report Verified by: Ian Veronica MD at 09/03/2024 6:25 AM EDT Rommel Mccoy MD IMG DIAGNOSTIC IMAGING ORDERABLE S Final Result * CT Abdomen and Pelvis With IV contrast (09/03/2024 5:57 AM EDT) Anatomical Region Laterality Modality Abdomen, Pelvis Computed Tomogra phy 09/03/2024 5:56 AM EDT Impressions 09/03/2024 6:46 AM EDT IMPRESSION: 1. Cirrhotic liver morphology with sequela of portal hypertension. Portal vein is patent. 2. Liver is heterogeneous in enhancement, which is nonspecific but may be seen in setting of hepatitis. 3. Moderate to large volume intra-abdominal ascites. 4. Cholelithiasis with mild gallbladder wall thickening, which may be due to chronic hepatic dysfunction although acute cholecystitis cannot be definitively excluded recommend clinical correlation. 5. Partially calcified left renal lesion measuring up to 3 cm which per chart review has been previously cryoablated and biopsied with unclear pathology, which may reflect treated RCC versus complex renal cyst. No prior available for direct comparison. Recommend continued attention on follow-up versus comparison with outside priors if available. 6. Right testicle is herniated into a small to moderately sized right inguinal hernia. Approved by Alejandro Guajardo DO on 09/03/2024 6:37 AM EDT I have personally reviewed the images and I agree with this report. Report Verified by: Ian Veronica MD at 09/03/2024 6:46 AM EDT Narrative 09/03/2024 6:46 AM EDT EXAM: CT ABDOMEN AND PELVIS WITH IV CONTRAST INDICATION: acute abd pain, cirrhosis, c/f thrombosis TECHNIQUE: Helically acquired CT images were obtained from the lung bases through the pelvis following administration of intravenous contrast. FIELD OF VIEW: 40 cm CONTRAST: 150 mL of IOHEXOL 350 MG IODINE/ML INTRAVENOUS SOLUTION administered intravenously COMPARISON: None. FINDINGS: Lower Chest: Lingular atelectasis. Lung bases are otherwise clear. Heart is normal in size. No pericardial effusion. Liver: Liver is nodular in contour. Liver is heterogeneous in attenuation. No focal hepatic lesions. Embolization coils in the anterior right lobe of the liver. Gallbladder and biliary tree: The gallbladder is largely distended with stones and mild wall thickening. Evaluation for pericholecystic fluid is limited by extensive ascites. No intra or extrahepatic biliary ductal dilation. Spleen: Spleen is enlarged measuring up to 18 cm and craniocaudal dimension. Adrenal glands: Unremarkable. Pancreas: Unremarkable. Kidneys, ureters and bladder: Kidneys enhance symmetrically bilaterally. Multiple punctate right renal calculi with mild right pelviectasis. No left hydronephrosis. Ill-defined partially calcified left renal hypodense lesion measuring up to 3.0 x 2.3 cm. Urinary bladder is normal. Bowel: Gastric, small bowel, colonic caliber and wall thickness are within normal limits. Sigmoid colon predominant diverticulosis without evidence of acute diverticulitis. Appendix: Unremarkable. Peritoneal cavity: Moderate to large volume intra-abdominal ascites. No loculated fluid collection. No free air. Genital structures: Dystrophic prostatic calcifications. Prostate is normal in size. Vasculature: Recanalized periumbilical vein to the portal vein with cavernous transformation. Small paraesophageal varices with embolization coils. Aorta and its branches are normal in caliber. No significant atherosclerotic disease. Portal vein is patent. Lymph nodes: No intra-abdominal or retroperitoneal adenopathy. Abdominal wall: Right testicle herniated within a right small to moderately sized inguinal hernia. Small fat-containing left inguinal hernia. Musculoskeletal: No acute or suspicious osseous abnormality. Mild thoracolumbar degenerative changes. Procedure Note Marvin Veronica MD - 09/03/2024 EXAM: CT ABDOMEN AND PELVIS WITH IV CONTRAST INDICATION: acute abd pain, cirrhosis, c/f thrombosis TECHNIQUE: Helically acquired CT images were obtained from the lung basesthrough the pelvis following administration of intravenous contrast. FIELD OF VIEW: 40 cm CONTRAST: 150 mL of IOHEXOL 350 MG IODINE/ML INTRAVENOUS SOLUTIONadministered intravenously COMPARISON: None. FINDINGS: Lower Chest: Lingular atelectasis. Lung bases are otherwise clear. Heartis normal in size. No pericardial effusion. Liver: Liver is nodular in contour. Liver is heterogeneous in attenuation.No focal hepatic lesions. Embolization coils in the anterior right lobe ofthe liver. Gallbladder and biliary tree: The gallbladder is largely distended withstones and mild wall thickening. Evaluation for pericholecystic fluid islimited by extensive ascites. No intra or extrahepatic biliary ductaldilation. Spleen: Spleen is enlarged measuring up to 18 cm and craniocaudaldimension. Adrenal glands: Unremarkable. Pancreas: Unremarkable. Kidneys, ureters and bladder: Kidneys enhance symmetrically bilaterally.Multiple punctate right renal calculi with mild right pelviectasis. Noleft hydronephrosis. Ill-defined partially calcified left renal hypodenselesion measuring up to 3.0 x 2.3 cm. Urinary bladder is normal. Bowel: Gastric, small bowel, colonic caliber and wall thickness are withinnormal limits. Sigmoid colon predominant diverticulosis without evidenceof acute diverticulitis. Appendix: Unremarkable. Peritoneal cavity: Moderate to large volume intra-abdominal ascites. Noloculated fluid collection. No free air. Genital structures: Dystrophic prostatic calcifications. Prostate isnormal in size. Vasculature: Recanalized periumbilical vein to the portal vein withcavernous transformation. Small paraesophageal varices with embolizationcoils. Aorta and its branches are normal in caliber. No significantatherosclerotic disease. Portal vein is patent. Lymph nodes: No intra-abdominal or retroperitoneal adenopathy. Abdominal wall: Right testicle herniated within a right small tomoderately sized inguinal hernia. Small fat-containing left inguinalhernia. Musculoskeletal: No acute or suspicious osseous abnormality. Mildthoracolumbar degenerative changes. IMPRESSION: 1. Cirrhotic liver morphology with sequela of portal hypertension. Portalvein is patent. 2. Liver is heterogeneous in enhancement, which is nonspecific but may beseen in setting of hepatitis. 3. Moderate to large volume intra-abdominal ascites. 4. Cholelithiasis with mild gallbladder wall thickening, which may be dueto chronic hepatic dysfunction although acute cholecystitis cannot bedefinitively excluded recommend clinical correlation. 5. Partially calcified left renal lesion measuring up to 3 cm which perchart review has been previously cryoablated and biopsied with unclearpathology, which may reflect treated RCC versus complex renal cyst. Noprior available for direct comparison. Recommend continued attention onfollow-up versus comparison with outside priors if available. 6. Right testicle is herniated into a small to moderately sized rightinguinal hernia. Approved by Alejandro Guajardo DO on 09/03/2024 6:37 AM EDT I have personally reviewed the images and I agree with this report. Report Verified by: Ian Veronica MD at 09/03/2024 6:46 AM EDT Rommel Mccoy MD IMG CT ORDERABLES Final Result * (ABNORMAL) Protime-INR (09/03/2024 5:35 AM EDT) Protime 22.9(H) 12.1 - 15.1 seconds 09/03/2024 6:08 AM EDT [facility] INR 2.0(H) 0.9 - 1.1 09/03/2024 6:08 AM EDT [facility] Comment: RECOMMENDED THERAPEUTIC RANGES USING INR : Stable oral anticoagulant therapy: 2.0 - 3.0 Mechanical prosthetic heart valve: 2.5 - 3.5 Recurrent acute myocardial infarction: 2.5 - 3.5 Plasma 09/03/2024 5:35 AM EDT 09/03/2024 5:51 AM EDT us Rommel Mccoy MD LAB BLOOD ORDERABLES Final Resul t [facility] [address] * ECG for indication of dyspnea (09/03/2024 5:32 AM EDT) 09/03/2024 5:32 AM EDT Narrative MUSE - 09/03/2024 8:00 AM EDT Ventricular Rate: 90 BPM Atrial Rate: 90 BPM P-R Interval: 190 ms QRS Duration: 104 ms QT: 456 ms QTc: 557 ms P [place]: 76 degrees R [place]: -37 degrees T [place]: 16 degrees Diagnosis Line: INTERPRETATION NOT AVAILABLE--ECG READ IN ER ^ Reconfirmed by PHYSICIAN, ER ([id number]), online editor Tonya BUTLER ([id number]) on 09/03/2024 8:00:24 AM us Rommel Mccoy MD ECG ORDERABLES Edited Result - Final Performing Organization Address City/[facility]/ZIP Co de Phone Number MUSE * High Sensitivity Troponin (09/03/2024 5:29 AM EDT) Pathologist [facility] High Sensitivity Troponin 16 0 - 20 ng/L 09/03/2024 6:02 AM EDT [facility] Serum 09/03/2024 5:29 AM EDT 09/03/2024 5:39 AM EDT us Rommel Mccoy MD LAB BLOOD ORDERABLES Final Resul t Performing Organization Address City/[facility]/ZIP Co de Phone Number [facility] [address] * Magnesium (09/03/2024 5:29 AM EDT) Magnesium 2.0 1.5 - 2.5 mg/dL 09/03/2024 6:14 AM EDT [facility] Plasma 09/03/2024 5:29 AM EDT 09/03/2024 5:39 AM EDT us Rommel Mccoy MD LAB BLOOD ORDERABLES Final Resul t [facility] [address] * Lipase (09/03/2024 5:29 AM EDT) Lipase 40 4 - 82 U/L 09/03/2024 6:1 4 AM EDT [facility] Plasma 09/03/2024 5:29 AM EDT 09/03/2024 5:39 AM EDT us Rommel Mccoy MD LAB BLOOD ORDERABLES Final Resul t Performing Organization Address [facility] de Phone Number [facility] [address] [facility]. [address] * (ABNORMAL) Hepatic Function Panel (09/03/2024 5:29 AM EDT) Total Bilirubin 32.5(H) 0.0 - 1.5 mg/dL 09/03/2024 6:14 AM EDT [facility] Bilirubin, Direct 19.8(H) 0.0 - 0.4 mg/dL 09/03/2024 6:14 AM EDT [facility] AST 73(H) 13 - 39 U/L 09/03/2024 6:14 AM EDT [facility] ALT 45 7 - 52 U/L 09/03/2024 6:14 AM EDT [facility] Alkaline Phosphatase 139(H) 36 - 125 U/L 09/03/2024 6:14 AM EDT [facility] Total Protein 5.5(L) 6.4 - 8.9 g/dL 09/03/2024 6:14 AM EDT [facility] Albumin 3.4(L) 3.5 - 5.7 g/dL 09/03/2024 6:14 AM EDT [facility] Bilirubin, Indirect 12.7(H) 0.0 - 1.1 mg/dL 09/03/2024 6:14 AM EDT [facility] Plasma 09/03/2024 5:29 AM EDT 09/03/2024 5:39 AM EDT us Rommel Mccoy MD LAB BLOOD ORDERABLES Final Resul t [facility] [address] [id number], [facility] * (ABNORMAL) Differential (09/03/2024 5:29 AM EDT) Differential Comments See Note 09/03/2024 7:13 AM EDT [facility] Comment:Acanthocytes Present Scan Result PERFORMED 09/03/2024 7:13 AM EDT [facility] Neutrophils Relative 84.2(H) 40.0 - 80.0 % 09/03/2024 7:13 AM EDT [facility] Lymphocytes Relative 7.9(L) 15.0 - 45.0 % 09/03/2024 7:13 AM EDT [facility] Monocytes Relative 5.7 0.0 - 12.0 % 09/03/2024 7:13 AM EDT [facility] Eosinophils Relative 1.9 0.0 - 8.0 % 09/03/2024 7:13 AM EDT [facility] Basophils Relative 0.3 0.0 - 1.0 % 09/03/2024 7:13 AM EDT [facility] nRBC 0 0 - 0 /100 WBC 09/03/2024 7:13 AM EDT [facility] Neutrophils Absolute 9,094(H) 1,520 - 8,640 /uL 09/03/2024 7:13 AM EDT [facility] Lymphocytes Absolute 853 570 - 4,860 /uL 09/03/2024 7:13 AM EDT [facility] Monocytes Absolute 616 0 - 1,296 /uL 09/03/2024 7:13 AM EDT [facility] Eosinophils Absolute 205 0 - 864 /uL 09/03/2024 7:13 AM EDT [facility] Basophils Absolute 32 0 - 108 /uL 09/03/2024 7:13 AM EDT [facility] PLT Morphology Platelet morphology appears normal 09/03/2024 7:13 AM EDT [facility] Whole Blood 09/03/2024 5:29 AM EDT 09/03/2024 5:51 AM EDT us Rommel Mccoy MD LAB BLOOD ORDERABLES Final Resul t [facility] [address] [id number], [facility] * (ABNORMAL) CBC (09/03/2024 5:29 AM EDT) WBC 10.8 3.8 - 10.8 10E3/uL 09/03/2024 7:13 AM EDT [facility] RBC 3.35(L) 4.20 - 5.80 10E6/uL 09/03/2024 7:13 AM EDT [facility] Hemoglobin 11.9(L) 13.2 - 17.1 g/dL 09/03/2024 7:13 AM EDT [facility] Hematocrit 33.0(L) 38.5 - 50.0 % 09/03/2024 7:13 AM EDT [facility] MCV 98.6 80.0 - 100.0 fL 09/03/2024 7:13 AM EDT [facility] MCH 35.6(H) 27.0 - 33.0 pg 09/03/2024 7:13 AM EDT [facility] MCHC 36.2(H) 32.0 - 36.0 g/dL 09/03/2024 7:13 AM EDT [facility] RDW 22.8(H) 11.0 - 15.0 % 09/03/2024 7:13 AM EDT [facility] Platelets 71(L) 140 - 400 10E3/uL 09/03/2024 7:13 AM EDT [facility] Comment: _Platelet Morphology Normal Specimen checked for clots. None detected. Slide Reviewed for PLT Clumps. None Seen. _Platelets Appear Decreased Platelet Estimate Decreased 09/03/2024 7:13 AM EDT [facility] MPV 9.3 7.5 - 11.5 fL 09/03/2024 7:13 AM EDT [facility] Whole Blood 09/03/2024 5:29 AM EDT 09/03/2024 5:51 AM EDT Narrative [facility] - 09/03/2024 7:13 AM EDT Peripheral blood smear was scanned per review criteria approved by the laboratory medical photographer. Rommel Mccoy MD LAB BLOOD ORDERABLES Final Resul t [facility] [address] [place] [address], [facility] * (ABNORMAL) Basic metabolic panel (09/03/2024 5:29 AM EDT) Sodium 133 133 - 146 mmol/L 09/03/2024 6:14 AM EDT [facility] Potassium 2.6(LL) 3.5 - 5.3 mmol/L 09/03/2024 6:14 AM EDT [facility] Comment:Critical Result K:2. 6 Called to and read back by: SIMEON HANSEN RN at: 09/03/2024 06:14:37 by:COLLINJ Chloride 100 98 - 110 mmol/L 09/03/2024 6:14 AM EDT [facility] CO2 20(L) 21 - 33 mmol/L 09/03/2024 6:14 AM EDT [facility] Anion Gap 13 3 - 16 mmol/L 09/03/2024 6:14 AM EDT [facility] BUN 38(H) 7 - 25 mg/dL 09/03/2024 6:14 AM EDT [facility] Creatinine 3.01(H) 0.60 - 1.30 mg/dL 09/03/2024 6:14 AM EDT [facility] Glucose 133(H) 70 - 100 mg/dL 09/03/2024 6:14 AM EDT [facility] Calcium 8.9 8.6 - 10.3 mg/dL 09/03/2024 6:14 AM EDT [facility] Osmolality, Calculated 287 278 - 305 mOsm/kg 09/03/2024 6:14 AM EDT [facility] EGFR 26 09/03/2024 6:14 AM EDT [facility] Comment:As of 2021, the estimated [...] Disease. Am J Kidney Dis. 2020. Plasma 09/03/2024 5:29 AM EDT 09/03/2024 5:39 AM EDT us Rommel Mccoy MD LAB BLOOD ORDERABLES Final Resul t Performing Organization Address City/[facility] Co de Phone Number [facility] [address] [facility]. [address] * (ABNORMAL) Ammonia (09/03/2024 5:25 AM EDT) Ammonia 166(H) 27 - 90 ug/dL 09/03/2024 8:17 AM EDT [facility] Plasma 09/03/2024 5:25 AM EDT 09/03/2024 5:50 AM EDT us Rommel Mccoy MD LAB BLOOD ORDERABLES Final Resul t Performing Organization Address City/[facility] Co de Phone Number [facility] [address] [place] [facility]. [address] documented in this encounter Visit Diagnoses Diagnosis Abdominal pain, unspecified abdominal location Alcoholic cirrhosis of liver with ascites (CMS-HCC) NADIYA (acute kidney injury) (CMS-HCC) [N17.9] Alcoholic cirrhosis of liver without ascites (CMS-HCC) Alcohol use disorder Hypertension Unspecified essential hypertension Other hyperlipidemia Renal mass, left Unspecified disorder of kidney and ureter Thrombocytopenia (CMS-HCC) Unspecified thrombocytopenia Metabolic encephalopathy Abdominal pain Abdominal pain, unspecified site Hypokalemia Hypopotassemia CKD (chronic kidney disease) stage 4, GFR 15-29 ml/min (CMS-HCC) Chronic kidney disease, Stage IV (severe) Metabolic acidosis with normal anion gap and bicarbonate losses GERD (gastroesophageal reflux disease) Esophageal reflux Hypothyroidism Unspecified hypothyroidism Itching Unspecified pruritic disorder NADIYA (acute kidney injury) (CMS-HCC) Anemia Unspecified anemia BRBPR (bright red blood per rectum) Hemorrhage of rectum and anus SBP (spontaneous bacterial peritonitis) (CMS-HCC) Spontaneous bacterial peritonitis C Diff Diarrhea Diarrhea C. difficile diarrhea Intestinal infection due to clostridium difficile Cirrhosis of liver with ascites, unspecified hepatic cirrhosis type (CMS-HCC) * Assessment & Plan Note - Azalea Piron, DO - 09/09/2024 12:42 PM EDT Associated Problem(s): Decompensated cirrhosis (CMS-HCC) Due to EtOH, h/o EtOH hepatitis 06/2024 s/p prednisolone. MELD as below. Hepatology following. - EV: EGD 07/29 w/ nonbleeding grade 1 and 2 varices, portal gastropathy w/ small spot of blood s/p APC - Ascites: para 08/27 for 4L, 09/03 1L, 09/04 4L; no diuretics due to h/o HRS and hypotension, 2g Na diet, plan for repeat para tomorrow with IR - SBP: 09/04 para consistent with SBP, s/p CTX x5d; will cont terminal computer operator ppx with Cipro 500mg daily - HE: Cont to hold lactulose today, cont home rifaximin/zinc, goal at least 3 BM daily - HCC: AFP wnl; RUQUS w/ doppler 09/03 w/ reversed flow in the portal veins with 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, patent hepatic arteries/veins, no focal hepatic lesions - HRS: first HRS at in 06/2024, last admission 08/12-08/29 improved w/ NE in MICU and albumin challenge, consulted renal, Cr improved with albumin challenge, stopped midodrine and octreotide 200 mcg (received 3 doses 09/03-09/04), goal MAP>70 will resume if needed - Transplant: not eligible yet as last EtOH use 06/2024, peth pending - INR rise, likely related to cirrhosis but will give IV vit K 10mg daily x3d MELD 3.0: 37 at 09/09/2024 6:12 AM Calculated from: Serum Creatinine: 2.47 mg/dL at 09/09/2024 6:12 AM Serum Sodium: 135 mmol/L at 09/09/2024 6:12 AM Total Bilirubin: 20.2 mg/dL at 09/09/2024 6:12 AM Serum Albumin: 3.7 g/dL (Using max of 3.5 g/dL) at 09/09/2024 6:12 AM INR(ratio): 2.2 at 09/09/2024 6:12 AM Age at listing (hypothetical): 39 years Sex: Male at 09/09/2024 6:12 AM * Assessment & Plan Note - Azalea Hughes DO - 09/09/2024 12:42 PM EDT Associated Problem(s): Abdominal pain Hyperacute onset while asleep 1hr prior to presentation. Initially c/f SBP, however cell counts unremarkable. Possibly due to worsening ascites, slightly improve s/p para in the ED though also received pain meds. Possible biliary colic given cholelithiasis, though pain diffuse. Low c/f cholecystitis given unremarkable RUQUS and LFTs relatively stable, mesenteric ischemia given lactate wnl. Acute hepatitis panel neg. - Cont Tylenol PRN (max 2g/day) - Cont oxy 2.5/5mg PRN, hold if mental status worsens - Stop home tramadol -Plan for repeat para w IR tomorrow * Assessment & Plan Note - Azalea Hughes DO - 09/09/2024 12:42 PM EDT Associated Problem(s): C Diff Diarrhea Having upwards of 8 Bms daily despite holding lactulose since 09/05 With associated hypokalemia requiring aggressive repletion and significant bicarb loss -Enteric pathogen panel neg -C dif pending * Assessment & Plan Note - Azalea Hughes DO - 09/09/2024 12:42 PM EDT Associated Problem(s): Hypokalemia Acute on chronic. Likely due to continued GI losses. 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 K 3.5 today - Cont to monitor, replete prn * Assessment & Plan Note - Azalea Hughes DO - 09/09/2024 12:42 PM EDT Associated Problem(s): CKD (chronic kidney disease) stage 4, GFR 15-29 ml/min ([facility]) As above for NADIYA * Assessment & Plan Note - Azalea Hughes DO - 09/09/2024 12:42 PM EDT Associated Problem(s): Alcohol use disorder Last use 06/2024 (admitted for EtOH hepatitis). 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 Had cryoablation w/ IR 10/2022. 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 Needs outpatient MRI abd on discharge as part of transplant workup. 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 * Assessment & Plan Note - Azalea Hughes DO - 09/09/2024 12:42 PM EDT Associated Problem(s): Hypertension No meds. * Assessment & Plan Note - Azalea Hughes DO - 09/09/2024 12:42 PM EDT Associated Problem(s): Other hyperlipidemia No meds * Assessment & Plan Note - Azalea Hughes DO - 09/09/2024 12:42 PM EDT Associated Problem(s): Anemia Hgb 8.0 today, down from 11.9 earlier this admission. Did report some bright red blood in stool as below. Denies symptoms of anemia including SOB, weakness. - CTM with daily CBC - Monitor for signs/symptoms of bleeding * Assessment & Plan Note - Azalea Hughes DO - 09/09/2024 12:42 PM EDT Associated Problem(s): BRBPR (bright red blood per rectum) Reports bright red blood with several liquid bowel movements starting 4/6. Minimal blood in toilet was observed. Repeat CBC yesterday pm stable. Pt reports history of hemorrhoid and intermittent bleeding. No pain reported * Assessment & Plan Note - Kathie Sanchez MD - 09/08/2024 9:51 AM EDT Associated Problem(s): Decompensated cirrhosis (CMS-HCC) Due to EtOH, h/o EtOH hepatitis 06/2024 s/p prednisolone. MELD as below. Hepatology following. 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, patent hepatic arteries/veins, no focal hepatic lesions - HRS: first HRS at in 06/2024, last admission 08/12-08/29 improved w/ NE in MICU and albumin challenge, consulted renal, Cr improved with albumin challenge, stopped midodrine and octreotide 200 mcg (received 3 doses 09/03-09/04), goal MAP>70 will resume if needed - Transplant: not eligible yet as last EtOH use 06/2024, peth pending - INR rise, likely related to cirrhosis but will give IV vit K 10mg daily x3d MELD 3.0: 37 at 09/08/2024 4:05 AM Calculated from: Serum Creatinine: 2.36 mg/dL at 09/08/2024 4:05 AM Serum Sodium: 137 mmol/L at 09/08/2024 4:05 AM Total Bilirubin: 18.7 mg/dL at 09/08/2024 4:05 AM Serum Albumin: 3.4 g/dL at 09/08/2024 4:05 AM INR(ratio): 2.3 at 09/08/2024 4:05 AM Age at listing (hypothetical): 39 years Sex: Male at 09/08/2024 4:05 AM * Assessment & Plan Note - Kathie Sanchez MD - 09/08/2024 9:51 AM EDT Associated Problem(s): Abdominal pain Hyperacute onset while asleep 1hr prior to presentation. Initially c/f SBP, however cell counts unremarkable. Possibly due to worsening ascites, slightly improve s/p para in the ED though also received pain meds. Possible biliary colic given cholelithiasis, though pain diffuse. Low c/f cholecystitis given unremarkable RUQUS and LFTs relatively stable, mesenteric ischemia given lactate wnl. Acute hepatitis panel neg. - Cont Tylenol PRN (max 2g/day) - Cont oxy 2.5/5mg PRN, hold if mental status worsens - Stop home tramadol - Re-consulted IR today for repeat therapeutic para * Assessment & Plan Note - Kathie Sanchez MD - 09/08/2024 9:51 AM EDT Associated Problem(s): Hypokalemia Acute on chronic. Likely due to continued GI losses. 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 K 3.3 today - Replete K - Recheck pm RFP * Assessment & Plan Note - Kathie Sanchez MD - 09/08/2024 9:51 AM EDT Associated Problem(s): Acute kidney injury superimposed on CKD ([facility]) Admit Cr 3.01 (from 2.91 on 09/02, recent BL 2.7-3.0), peak Cr 3.52, now improving. UA appears concentrated, no c/f obstruction on CT A/P. Treated as HRS initially given severity of CKD and cirrhosis,de-escalating tx as above. Renal consulted. - Cont home sodium bicarb 1300mg TID, consider additional bicarb pending pm renal (though will do so with caution given Na restriction) - Albumin challenge and octreotide/midodrine as above * Assessment & Plan Note - Kathie Sanchez MD - 09/08/2024 9:51 AM EDT Associated Problem(s): CKD (chronic kidney disease) stage 4, GFR 15-29 ml/min ([facility]) As above for NADIYA * Assessment & Plan Note - Kathie Sanchez MD - 09/08/2024 9:51 AM EDT Associated Problem(s): Alcohol use disorder Last use 06/2024 (admitted for EtOH hepatitis). 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 Had cryoablation w/ IR 10/2022. 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 Needs outpatient MRI abd on discharge as part of transplant workup. * Assessment & Plan Note - Kathie Sanchez MD - 09/08/2024 9:51 AM EDT Associated Problem(s): GERD (gastroesophageal reflux disease) - Cont home PPI * Assessment & Plan Note - Kathie Sanchez MD - 09/08/2024 9:51 AM EDT Associated Problem(s): Hypothyroidism - Cont home levothyroxine * Assessment & Plan Note - Kathie Sanchez MD - 09/08/2024 9:51 AM EDT Associated Problem(s): Itching - Cont home cholestyramine - Cont ursodiol * Assessment & Plan Note - Kathie Sanchez MD - 09/08/2024 9:51 AM EDT Associated Problem(s): Thrombocytopenia (CMS-HCC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 * Assessment & Plan Note - Kathie Sanchez MD - 09/08/2024 9:51 AM EDT Associated Problem(s): Hypertension No meds. * Assessment & Plan Note - Kathie Sanchez MD - 09/08/2024 9:51 AM EDT Associated Problem(s): Other hyperlipidemia No meds * Assessment & Plan Note - Kathie Sanchez MD - 09/08/2024 9:51 AM EDT Associated Problem(s): Anemia Hgb 8.0 today, down from 11.9 earlier this admission. Did report some bright red blood in stool as below. Denies symptoms of anemia including SOB, weakness. - CTM with daily CBC - Monitor for signs/symptoms of bleeding * Assessment & Plan Note - Kathie Sanchez MD - 09/08/2024 9:51 AM EDT Associated Problem(s): BRBPR (bright red blood per rectum) Reports bright red blood with several liquid bowel movements starting 4/6. Minimal blood in toilet was observed. Repeat CBC yesterday pm stable. Pt reports history of hemorrhoid and intermittent bleeding. No pain reported * Assessment & Plan Note - Kathie Sanchez MD - 09/08/2024 9:51 AM EDT Associated Problem(s): SBP (spontaneous bacterial peritonitis) (CMS-HCC) Para with fluid studies on adm suggestive of SBP Unfortunately, cx with no growth S/p 5 days ceftriaxone Will start ppx cipro 500 mg daily * Assessment & Plan Note - Kathie Sanchez MD - 09/08/2024 9:51 AM EDT Associated Problem(s): C Diff Diarrhea Having upwards of 8 Bms daily despite holding lactulose since 09/05 With associated hypokalemia requiring aggressive repletion and significant bicarb loss Will send C diff and enteric pathogen panel * Assessment & Plan Note - Azalea Hughes DO - 09/07/2024 10:06 AM EDT Associated Problem(s): Decompensated cirrhosis (CMS-HCC) Due to EtOH, h/o EtOH hepatitis 06/2024 s/p prednisolone. MELD as below. Hepatology following. 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, patent hepatic arteries/veins, no focal hepatic lesions - HRS: first HRS at in 06/2024, last admission 08/12-08/29 improved w/ NE in MICU and albumin challenge, consulted renal, Cr improved with albumin challenge, stopped midodrine and octreotide 200 mcg (received 3 doses 09/03-09/04), goal MAP>70 will resume if needed - Transplant: not eligible yet as last EtOH use 06/2024, peth pending - INR rise, likely related to cirrhosis but will give IV vit K 10mg daily x3d MELD 3.0: 38 at 09/07/2024 3:42 AM Calculated from: Serum Creatinine: 2.6 mg/dL at 09/07/2024 3:42 AM Serum Sodium: 137 mmol/L at 09/07/2024 3:42 AM Total Bilirubin: 18.9 mg/dL at 09/07/2024 3:42 AM Serum Albumin: 3.5 g/dL at 09/07/2024 3:42 AM INR(ratio): 2.3 at 09/07/2024 3:42 AM Age at listing (hypothetical): 39 years Sex: Male at 09/07/2024 3:42 AM * Assessment & Plan Note - Azalea Hughes DO - 09/07/2024 10:06 AM EDT Associated Problem(s): Abdominal pain Hyperacute onset while asleep 1hr prior to presentation. Initially c/f SBP, however cell counts unremarkable. Possibly due to worsening ascites, slightly improve s/p para in the ED though also received pain meds. Possible biliary colic given cholelithiasis, though pain diffuse. Low c/f cholecystitis given unremarkable RUQUS and LFTs relatively stable, mesenteric ischemia given lactate wnl. Acute hepatitis panel neg. - Cont Tylenol PRN (max 2g/day) - Cont oxy 2.5/5mg PRN, hold if mental status worsens - Stop home tramadol * Assessment & Plan Note - Azalea Hughes DO - 09/07/2024 10:06 AM EDT Associated Problem(s): Hypokalemia Acute on chronic. Likely due to continued GI losses. 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 K 3.2 today - Replace PRN - Recheck pm RFP * Assessment & Plan Note - Azalea Hughes DO - 09/07/2024 10:06 AM EDT Associated Problem(s): Acute kidney injury superimposed on CKD ([facility]) Admit Cr 3.01 (from 2.91 on 09/02, recent BL 2.7-3.0), peak Cr 3.52, now improving. UA appears concentrated, no c/f obstruction on CT A/P. Treated as HRS initially given severity of CKD and cirrhosis,de-escalating tx as above. Renal consulted. - Cont home sodium bicarb 1300mg TID, consider additional bicarb pending pm renal (though will do so with caution given Na restriction) - Albumin challenge and octreotide/midodrine as above * Assessment & Plan Note - Azalea Hughes DO - 09/07/2024 10:06 AM EDT Associated Problem(s): Metabolic encephalopathy Likely multifactorial from HE and morphine I/s/o CKD. UA not c/f infxn. TSH, VBG, CXR unremarkable;deferred CTH. Improving. - Treatment of infection as above - Delirium precautions * Assessment & Plan Note - Azalea Hughes DO - 09/07/2024 10:06 AM EDT Associated Problem(s): Alcohol use disorder Last use 06/2024 (admitted for EtOH hepatitis). - Peth negative - Cont home folic acid - PO thiamine supp * Assessment & Plan Note - Azalea Hughes DO - 09/07/2024 7:07 AM EDTAssociated Problem(s): CKD (chronic kidney disease) stage 4, GFR 15-29 ml/min ([facility] [place]) As above for NADIYA * Assessment & Plan Note - Azalea Hughes DO - 09/07/2024 7:07 AM EDTAssociated Problem(s): Metabolic acidosis with normal anion gap and bicarbonate losses As above for CKD. 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 Had cryoablation w/ IR 10/2022. 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 Follow-up outpt urology. * Assessment & Plan Note - Azalea Hughes DO - 09/07/2024 7:07 AM EDTAssociated Problem(s): GERD (gastroesophageal reflux disease) - Cont home PPI * Assessment & Plan Note - Azalea Hughes DO - 09/07/2024 7:07 AM EDTAssociated Problem(s): Hypothyroidism - Cont home levothyroxine * Assessment & Plan Note - Azalea Hughes DO - 09/07/2024 7:07 AM EDTAssociated Problem(s): Itching - Cont home cholestyramine - Cont ursodiol * Assessment & Plan Note - Azalea Hughes DO - 09/07/2024 7:07 AM EDTAssociated Problem(s): Thrombocytopenia (CMS-HCC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 * Assessment & Plan Note - Azalea Hughes DO - 09/07/2024 7:07 AM EDTAssociated Problem(s): Hypertension No meds. * Assessment & Plan Note - Azalea Hughes DO - 09/07/2024 7:07 AM EDTAssociated Problem(s): Other hyperlipidemia No meds * Assessment & Plan Note - Azalea Hughes DO - 09/07/2024 7:07 AM EDTAssociated Problem(s): Anemia Hgb 7.4 today, down from 11.9 earlier this admission. Did report some bright red blood in stool as below. Denies symptoms of anemia including SOB, weakness. - CTM with daily CBC - Monitor for signs/symptoms of bleeding * Assessment & Plan Note - Azalea Hughes DO - 09/07/2024 7:07 AM EDTAssociated Problem(s): BRBPR (bright red blood per rectum) Reports bright red blood with several liquid bowel movements starting 08/17. Minimal blood in toilet was observed. Repeat CBC yesterday pm stable. Pt reports history of hemorrhoid and intermittent bleeding. No pain reported * Assessment & Plan Note - Azalea Hughes DO - 09/06/2024 11:10 AM EDT Associated Problem(s): Decompensated cirrhosis (CMS-HCC) Due to EtOH, h/o EtOH hepatitis 06/2024 s/p prednisolone. MELD as below. Hepatology following. 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, patent hepatic arteries/veins, no focal hepatic lesions - HRS: first HRS at in 06/2024, last admission 08/12-08/29 improved w/ NE in MICU and albumin challenge, consulted renal, Cr improved with albumin challenge, stopped midodrine and octreotide 200 mcg (received 3 doses 09/03-09/04), goal MAP>70 will resume if needed - Transplant: not eligible yet as last EtOH use 06/2024, peth pending - INR rise, likely related to cirrhosis but will give IV vit K 10mg daily x3d MELD 3.0: 38 at 09/06/2024 4:30 AM Calculated from: Serum Creatinine: 2.7 mg/dL at 09/06/2024 4:30 AM Serum Sodium: 137 mmol/L at 09/06/2024 4:30 AM Total Bilirubin: 21.3 mg/dL at 09/06/2024 4:30 AM Serum Albumin: 3.7 g/dL (Using max of 3.5 g/dL) at 09/06/2024 4:30 AM INR(ratio): 2.2 at 09/06/2024 4:30 AM Age at listing (hypothetical): 39 years Sex: Male at 09/06/2024 4:30 AM * Assessment & Plan Note - Azalea Hughes DO - 09/06/2024 11:10 AM EDT Associated Problem(s): Abdominal pain Hyperacute onset while asleep 1hr prior to presentation. Initially c/f SBP, however cell counts unremarkable. Possibly due to worsening ascites, slightly improve s/p para in the ED though also received pain meds. Possible biliary colic given cholelithiasis, though pain diffuse. Low c/f cholecystitis given unremarkable RUQUS and LFTs relatively stable, mesenteric ischemia given lactate wnl. Acute hepatitis panel neg. - Trend lactates and abd exam - Cont Tylenol PRN (max 2g/day) - Cont oxy 2.5/5mg PRN, hold if mental status worsens - Stop home tramadol * Assessment & Plan Note - Azalea Hughes DO - 09/06/2024 11:10 AM EDT Associated Problem(s): Hypokalemia Acute on chronic. Possible due to continued GI losses. 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 Patient with large amount BM yesterday, K 3.1 today - Replace PRN - Recheck pm RFP * Assessment & Plan Note - Azalea Hughes DO - 09/06/2024 11:10 AM EDT Associated Problem(s): Acute kidney injury superimposed on CKD ([facility] [place]) Admit Cr 3.01 (from 2.91 on 09/02, recent BL 2.7-3.0), peak Cr 3.52, now improving. UA appears concentrated, no c/f obstruction on CT A/P. Treated as HRS initially given severity of CKD and cirrhosis,de-escalating tx as above. Renal consulted. - Cont home sodium bicarb 1300mg TID - Albumin challenge and octreotide/midodrine as above * Assessment & Plan Note - Azalea Hughes DO - 09/06/2024 11:10 AM EDT Associated Problem(s): CKD (chronic kidney disease) stage 4, GFR 15-29 ml/min ([facility] [place]) As above for NADIYA * Assessment & Plan Note - Azalea Hughes DO - 09/06/2024 11:10 AM EDT Associated Problem(s): Metabolic encephalopathy Likely multifactorial from HE and morphine I/s/o CKD. UA not c/f infxn. TSH, VBG, CXR unremarkable;deferred CTH. Improving. - BCx 09/03 NGTD - Treatment of infection as above - Delirium precautions * Assessment & Plan Note - Azalea Hughes DO - 09/06/2024 11:10 AM EDT Associated Problem(s): Alcohol use disorder Last use 06/2024 (admitted for EtOH hepatitis). - Peth negative - Cont home folic acid - Cont empiric IV thiamine 200mg q8h x2d, then taper * Assessment & Plan Note - Azalea Hughes DO - 09/06/2024 11:10 AM EDT Associated Problem(s): Metabolic acidosis with normal anion gap and bicarbonate losses As above for CKD. 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 Had cryoablation w/ IR 10/2022. 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 Follow-up outpt urology. * Assessment & Plan Note - Azalea Hughes DO - 09/06/2024 11:10 AM EDT Associated Problem(s): GERD (gastroesophageal reflux disease) - Cont home PPI * Assessment & Plan Note - Azalea Hughes DO - 09/06/2024 11:10 AM EDT Associated Problem(s): Hypothyroidism - Cont home levothyroxine * Assessment & Plan Note - Azalea Hughes DO - 09/06/2024 11:10 AM EDT Associated Problem(s): Itching - Cont home cholestyramine - Cont ursodiol * Assessment & Plan Note - Azalea Hughes DO - 09/06/2024 11:10 AM EDT Associated Problem(s): Thrombocytopenia (CMS-HCC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 * Assessment & Plan Note - Azalea Hughes DO - 09/06/2024 11:10 AM EDT Associated Problem(s): Hypertension No meds. * Assessment & Plan Note - Azalea Hughes DO - 09/06/2024 11:10 AM EDT Associated Problem(s): Other hyperlipidemia No meds * Assessment & Plan Note - Azalea Hughes DO - 09/06/2024 11:10 AM EDT Associated Problem(s): Anemia Hgb today stable at 8.2, down from 11.9 earlier this admission. Did have some bright red blood in stool this am. - CTM with daily CBC - Monitor for signs/symptoms of bleeding * Assessment & Plan Note - Azalea Hughes DO - 09/05/2024 2:50 PM EDTAssociated Problem(s): Decompensated cirrhosis (CMS-HCC) Due to EtOH, h/o EtOH hepatitis 06/2024 s/p prednisolone. MELD as below. Hepatology following. 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, patent hepatic arteries/veins, no focal hepatic lesions - HRS: first HRS at in 06/2024, last admission 08/12-08/29 improved w/ NE in MICU and albumin challenge, consulted renal, Cr improved with albumin challenge, will stop midodine given higher BP, stopped octreotide 200 mcg (received 3 doses 09/03-09/04), goal MAP>70 - Transplant: not eligible yet as last EtOH use 06/2024, peth pending - INR rise, likely related to cirrhosis but will give IV vit K 10mg daily x3d - Add ursodiol for itching MELD 3.0: 41 at 09/05/2024 7:24 AM Calculated from: Serum Creatinine: 2.92 mg/dL at 09/05/2024 7:24 AM Serum Sodium: 134 mmol/L at 09/05/2024 7:24 AM Total Bilirubin: 23 mg/dL at 09/05/2024 7:24 AM Serum Albumin: 3.3 g/dL at 09/05/2024 7:24 AM INR(ratio): 2.5 at 09/05/2024 7:24 AM Age at listing (hypothetical): 39 years Sex: Male at 09/05/2024 7:24 AM * Assessment & Plan Note - Azalea Hughes DO - 09/05/2024 2:50 PM EDTAssociated Problem(s): Abdominal pain Hyperacute onset while asleep 1hr prior to presentation. Initially c/f SBP, however cell counts unremarkable. Possibly due to worsening ascites, slightly improve s/p para in the ED though also received pain meds. Possible biliary colic given cholelithiasis, though pain diffuse. Low c/f cholecystitis given unremarkable RUQUS and LFTs relatively stable, mesenteric ischemia given lactate wnl. Acute hepatitis panel neg. - Trend lactates and abd exam - Cont Tylenol PRN (max 2g/day) - Start oxy 2.5/5mg PRN, hold if mental status worsens - Stop home tramadol * Assessment & Plan Note - Azalea Hughes DO - 09/05/2024 2:50 PM EDTAssociated Problem(s): Hypokalemia Acute on chronic. Possible due to continued GI losses. 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 Improving. - Replace PRN, space BMPs to BID * Assessment & Plan Note - Azalea Hughes DO - 09/05/2024 2:50 PM EDTAssociated Problem(s): Acute kidney injury superimposed on CKD (CMS-HCC) Admit Cr 3.01 (from 2.91 on 09/02, recent BL 2.7-3.0), peak Cr 3.52, now improving. UA appears concentrated, no c/f obstruction on CT A/P. Treated as HRS initially given severity of CKD and cirrhosis,de-escalating tx as above. Renal consulted. - Cont home sodium bicarb 1300mg TID - Albumin challenge and octreotide/midodrine as above - CTM bladder scans though may be inaccurate due to ascites, may require SC to r/o retention * Assessment & Plan Note - Azalea Hughes DO - 09/05/2024 2:50 PM EDTAssociated Problem(s): CKD (chronic kidney disease) stage 4, GFR 15-29 ml/min ([facility] [place]) As above for NADIYA * Assessment & Plan Note - Azalea Hughes DO - 09/05/2024 2:50 PM EDTAssociated Problem(s): Metabolic encephalopathy Likely multifactorial from HE and morphine I/s/o CKD. UA not c/f infxn. TSH, VBG, CXR unremarkable;deferred CTH. Improving. - BCx 09/03 NGTD - Cont CTX 09/03-09/04, consider d/c given BCx NGTD and low c/f infxn otherwise - Delirium precautions * Assessment & Plan Note - Azalea Hughes DO - 09/05/2024 2:50 PM EDTAssociated Problem(s): Alcohol use disorder Last use 06/2024 (admitted for EtOH hepatitis). - Pending Peth - Cont home folic acid - Cont empiric IV thiamine 200mg q8h x2d, then taper * Assessment & Plan Note - Azalea Hughes DO - 09/05/2024 2:50 PM EDTAssociated Problem(s): Metabolic acidosis with normal anion gap and bicarbonate losses As above for CKD. 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 Had cryoablation w/ IR 10/2022. 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 Follow-up outpt urology. * Assessment & Plan Note - Azalea Hughes DO - 09/05/2024 2:50 PM EDTAssociated Problem(s): GERD (gastroesophageal reflux disease) - Cont home PPI * Assessment & Plan Note - Azalea Hughes DO - 09/05/2024 2:50 PM EDTAssociated Problem(s): Hypothyroidism - Cont home levothyroxine * Assessment & Plan Note - Azalea Hughes DO - 09/05/2024 2:50 PM EDTAssociated Problem(s): Itching - Cont home cholestyramine * Assessment & Plan Note - Azalea Hughes DO - 09/05/2024 2:50 PM EDTAssociated Problem(s): Thrombocytopenia (CMS-HCC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 * Assessment & Plan Note - Azalea Hughes DO - 09/05/2024 2:50 PM EDTAssociated Problem(s): Hypertension No meds. * Assessment & Plan Note - Azalea Hughes DO - 09/05/2024 2:50 PM EDTAssociated Problem(s): Other hyperlipidemia No meds * Assessment & Plan Note - Azalea Hughes DO - 09/05/2024 2:50 PM EDTAssociated Problem(s): Anemia Hgb today 7.6, down from 11.9 earlier this admission. Denies melena or bloody stools. Did have parayesterday, but exam is not consistent with blood in abdomen. Suspect some element of dilution, though would not likely explain this large of a drop - CTM with daily CBC - Monitor for signs/symptoms of bleeding * Assessment & Plan Note - Kiet Ramirez MD - 09/05/2024 12:44 AM EDT Associated Problem(s): Decompensated cirrhosis (CMS-HCC) Due to EtOH, h/o EtOH hepatitis 06/2024 s/p prednisolone. MELD as below. Hepatology following. - EV: EGD 07/29 w/ nonbleeding grade 1 and 2 varices, portal gastropathy w/ small spot of blood s/p APC - Ascites: para 08/27 for 4L, 09/03 1L; no diuretics due to h/o HRS and hypotension, 2g Na diet, consult IR for para (no more than 4L; likely will be tomorrow given INR rise, likely related to cirrhosis but will give IV vit K 10mg daily x3d) - SBP: no hx, hyperacute severe abd pain clinically c/f SBP but ED dx para w/ 9 nucleated cells, s/p CTX in the ED and continued empirically today - HE: cont home lactulose/rifaximin/zinc, lactulose enemas PRN, goal at least 3 BM daily - HCC: check AFP; RUQUS w/ doppler 09/03 w/ reversed flow in the portal veins with 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, patent hepatic arteries/veins, no focal hepatic lesions - HRS: first HRS at in 06/2024, last admission 08/12-08/29 improved w/ NE in MICU and albumin challenge, consulted renal, cont albumin challenge 09/03-09/04, cont midodine 15 mg TID, stop octreotide 200mcg TID (received 3 doses 09/03-09/04), goal MAP>70 - Transplant: not eligible yet as last EtOH use 06/2024, peth pending MELD 3.0: 43 at 09/04/2024 5:22 AM Calculated from: Serum Creatinine: 3.21 mg/dL (Using max of 3 mg/dL) at 09/04/2024 5:22 AM Serum Sodium: 132 mmol/L at 09/04/2024 5:22 AM Total Bilirubin: 25.5 mg/dL at 09/04/2024 5:22 AM Serum Albumin: 3.2 g/dL at 09/04/2024 5:22 AM INR(ratio): 3 at 09/04/2024 5:22 AM Age at listing (hypothetical): 39 years Sex: Male at 09/04/2024 5:22 AM * Assessment & Plan Note - Kiet Ramirez MD - 09/05/2024 12:44 AM EDT Associated Problem(s): Metabolic encephalopathy Likely multifactorial from HE and morphine I/s/o CKD. UA not c/f infxn. TSH, VBG, CXR unremarkable;deferred CTH. Improving. - BCx 09/03 NGTD - Cont CTX 09/03-09/04, consider d/c given BCx NGTD and low c/f infxn otherwise - Delirium precautions * Assessment & Plan Note - Kiet Ramirez MD - 09/05/2024 12:44 AM EDT Associated Problem(s): Acute kidney injury superimposed on CKD (CMS-HCC) Admit Cr 3.01 (from 2.91 on 09/02, recent BL 2.7-3.0), peak Cr 3.52, now improving. UA appears concentrated, no c/f obstruction on CT A/P. Treated as HRS initially given severity of CKD and cirrhosis,de-escalating tx as above. Renal consulted. - Cont home sodium bicarb 1300mg TID - Albumin challenge and octreotide/midodrine as above - CTM bladder scans though may be inaccurate due to ascites, may require SC to r/o retention * Assessment & Plan Note - Kiet Ramirez MD - 09/04/2024 10:43 AM EDT Associated Problem(s): Abdominal pain Hyperacute onset while asleep 1hr prior to presentation. Initially c/f SBP, however cell counts unremarkable. Possibly due to worsening ascites, slightly improve s/p para in the ED though also received pain meds. Possible biliary colic given cholelithiasis, though pain diffuse. Low c/f cholecystitis given unremarkable RUQUS and LFTs relatively stable, mesenteric ischemia given lactate wnl. Acute hepatitis panel neg. - Trend lactates and abd exam - Cont Tylenol PRN (max 2g/day) - Start oxy 2.5/5mg PRN, hold if mental status worsens - Stop home tramadol * Assessment & Plan Note - Kiet Ramirez MD - 09/04/2024 10:43 AM EDT Associated Problem(s): Hypokalemia Acute on chronic. Possible due to continued GI losses. 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 Improving. - Replace PRN, space BMPs to BID * Assessment & Plan Note - Kiet Ramirez MD - 09/04/2024 10:43 AM EDT Associated Problem(s): CKD (chronic kidney disease) stage 4, GFR 15-29 ml/min ([facility]) As above for NADIYA * Assessment & Plan Note - Kiet Ramirez MD - 09/04/2024 10:43 AM EDT Associated Problem(s): Alcohol use disorder Last use 06/2024 (admitted for EtOH hepatitis). - Pending Peth - Cont home folic acid - Cont empiric IV thiamine 200mg q8h x2d, then taper * Assessment & Plan Note - Kiet Ramirez MD - 09/04/2024 10:43 AM EDT Associated Problem(s): Metabolic acidosis with normal anion gap and bicarbonate losses As above for CKD. 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 Had cryoablation w/ IR 10/2022. 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 Follow-up outpt urology. * Assessment & Plan Note - Kiet Ramirez MD - 09/04/2024 10:43 AM EDT Associated Problem(s): GERD (gastroesophageal reflux disease) - Cont home PPI * Assessment & Plan Note - Kiet Ramirez MD - 09/04/2024 10:43 AM EDT Associated Problem(s): Hypothyroidism - Cont home levothyroxine * Assessment & Plan Note - Kiet Ramirez MD - 09/04/2024 10:43 AM EDT Associated Problem(s): Itching - Cont home cholestyramine * Assessment & Plan Note - Kiet Ramirez MD - 09/04/2024 10:43 AM EDT Associated Problem(s): Thrombocytopenia (CMS-HCC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 * Assessment & Plan Note - Kiet Ramirez MD - 09/04/2024 10:43 AM EDT Associated Problem(s): Hypertension No meds. * Assessment & Plan Note - Kiet Ramirez MD - 09/04/2024 10:43 AM EDT Associated Problem(s): Other hyperlipidemia No meds * Assessment & Plan Note - Kiet Ramirez MD - 09/03/2024 12:34 PM EDT Associated Problem(s): Decompensated cirrhosis (CMS-HCC) Due to EtOH, h/o EtOH hepatitis 06/2024 s/p prednisolone. MELD as below. Hepatology consulted. 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, patent hepatic arteries/veins, no focal hepatic lesions - HRS: reported h/o HRS at in 06/2024 though cannot find definitive documentation, responded to albumin challenge last admission 08/12-08/29, will albumin challenge again due to Cr uptrend, urine appears concentrated so hopefully will respond, ordered urine lytes - Transplant: not eligible yet as last EtOH use 06/2024 MELD 3.0: 40 at 09/03/2024 5:35 AM Calculated from: Serum Creatinine: 3.01 mg/dL (Using max of 3 mg/dL) at 09/03/2024 5:29 AM Serum Sodium: 133 mmol/L at 09/03/2024 5:29 AM Total Bilirubin: 32.5 mg/dL at 09/03/2024 5:29 AM Serum Albumin: 3.4 g/dL at 09/03/2024 5:29 AM INR(ratio): 2 at 09/03/2024 5:35 AM Age at listing (hypothetical): 39 years Sex: Male at 09/03/2024 5:35 AM * Assessment & Plan Note - Kiet Ramirez MD - 09/03/2024 12:34 PM EDT Associated Problem(s): CKD (chronic kidney disease) stage 4, GFR 15-29 ml/min ([facility]) Admit Cr 3.01, 3.26 on repeat (from 2.91 on 09/02, recent BL 2.7-3.0). - Cont home sodium bicarb 1300mg TID - Albumin challenge given uptrending Cr * Assessment & Plan Note - Kiet Ramirez MD - 09/03/2024 12:34 PM EDT Associated Problem(s): Abdominal pain Hyperacute onset while asleep 1hr prior to presentation. Initially c/f SBP, however cell counts unremarkable. Possibly due to worsening ascites, slightly improve s/p para in the ED though also received pain meds. Possible biliary colic given cholelithiasis, though pain diffuse. Low c/f cholecystitis given unremarkable RUQUS and LFTs relatively stable, mesenteric ischemia given lactate wnl. - Trend lactates and abd exam, check acute hepatitis panel - Hold off on opioid pain medications for now due to AMS * Assessment & Plan Note - Kiet Ramirez MD - 09/03/2024 12:34 PM EDT Associated Problem(s): Hypokalemia Acute on chronic. Possible due to continued GI losses. 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 - Replace IV and PO, trend BMP q4h, urine lytes * Assessment & Plan Note - Kiet Ramirez MD - 09/03/2024 12:34 PM EDT Associated Problem(s): Metabolic encephalopathy Likely multifactorial from HE and morphine I/s/o CKD. UA not c/f infxn. 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 Had cryoablation w/ IR 10/2022. 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 Follow-up outpt urology. * Assessment & Plan Note - Kiet Ramirez MD - 09/03/2024 12:34 PM EDT Associated Problem(s): GERD (gastroesophageal reflux disease) - Cont home PPI * Assessment & Plan Note - Kiet Ramirez MD - 09/03/2024 12:34 PM EDT Associated Problem(s): Hypothyroidism - Cont home levothyroxine * Assessment & Plan Note - Kiet Ramirez MD - 09/03/2024 12:34 PM EDT Associated Problem(s): Itching - Cont home cholestyramine * Assessment & Plan Note - Kiet Ramirez MD - 09/03/2024 11:42 AM EDT Associated Problem(s): Alcohol use disorder Last use 06/2024 (admitted for EtOH hepatitis). - Pending Peth - Cont home folic acid - Start empiric IV thiamine 200mg q8h x2d * Assessment & Plan Note - Kiet Ramirez MD - 09/03/2024 11:42 AM EDT Associated Problem(s): Hypertension No meds. * Assessment & Plan Note - Kiet Ramirez MD - 09/03/2024 11:42 AM EDT Associated Problem(s): Other hyperlipidemia No meds * Assessment & Plan Note - Kiet Ramirez MD - 09/03/2024 11:42 AM EDT Associated Problem(s): Thrombocytopenia (CMS-HCC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 * Assessment & Plan Note - Kiet Ramirez MD - 09/03/2024 11:42 AM EDT Associated Problem(s): Metabolic acidosis with normal anion gap and bicarbonate losses As above for CKD. documented in this encounter Administered Medications Inactive Administered Medications - up to 3 most recent administrations Medication Order MAR Action Action Date Dose Rate Site acetaminophen (TYLENOL) tablet 650 mg 650 mg, Oral, Every 8 hours PRN, severe pain (NRS 7-10) or if patient is non-communicative (CPOT 6-8), moderate pain (NRS 4-6) or if patient is non-communicative (CPOT 3-5), Starting on Sun09/03/24 at 1440, Maximum dose of acetaminophen is 4000 mg (4 grams) from all sources in 24 hours. Given 09/07/2024 6:09 PM EDT 650 mg Given 09/04/2024 3:34 AM EDT 650 mg Given 09/03/2024 2:18 PM EDT 650 mg albumin human 25% 12.5 g, Intravenous, Every 30 min, First dose on Sun09/03/24 at 1228, For 8 doses, In Emergencies, may administer as rapidly as needed to improve clinical status., Select indication for use: Cirrhosis: Hepatorenal Syndrome, at 100 mL/hr New Bag 09/03/2024 3:40 PM EDT 12.5 g 100 mL/hr New Bag 09/03/2024 3:39 PM EDT 12.5 g 100 mL/hr New Bag 09/03/2024 3:10 PM EDT 12.5 g 100 mL/hr albumin human 25% 12.5 g, Intravenous, Every 30 min, First dose on Sun09/04/24 at 0900, For 8 doses, In Emergencies, may administer as rapidly as needed to improve clinical status., Select indication for use: Cirrhosis: Hepatorenal Syndrome, at 100 mL/hr New Bag 09/04/2024 1:47 PM EDT 12.5 g 100 mL/hr New Bag 09/04/2024 12:58 PM EDT 12.5 g 100 mL/hr New Bag 09/04/2024 11:57 AM EDT 12.5 g 100 mL/hr albumin human 25% 12.5 g, Intravenous, Every 30 min, First dose (after last reorder) on Sun09/05/24 at 0900, For 8 doses, In Emergencies, may administer as rapidly as needed to improve clinical status., Select indication for use: Cirrhosis: Hepatorenal Syndrome, at 100 mL/hr New Bag 09/05/2024 4:38 PM EDT 12.5 g 100 mL/h r New Bag 09/05/2024 4:01 PM EDT 12.5 g 100 mL/hr New Bag 09/05/2024 2:50 PM EDT 12.5 g 100 mL/hr albumin human 25% 12.5 g, Intravenous, Every 30 min, First dose on Sun09/07/24 at 0900, For 8 doses, In Emergencies, may administer as rapidly as needed to improve clinical status., Select indication for use: Cirrhosis: Spontaneous Bacterial Peritonitis, at 100 mL/hr New Bag 09/07/2024 8:46 AM EDT 12.5 g 100 mL/hr albumin human 25% 12.5 g, Intravenous, Every 30 min, First dose on Sun09/09/24 at 1600, For 4 doses, Dosing is 6 grams/L of ascites fluid removed. In Emergencies, may administer as rapidly as needed to improve clinical status., Select indication for use: Cirrhosis: Large Volume Paracentesis (>5 L), at 100 mL/hr New 09/09/2024 5:10 PM EDT 12.5 g 100 mL/hr New Bag 09/09/2024 4:36 PM EDT 12.5 g 100 mL/hr New Bag 09/09/2024 4:06 PM EDT 12.5 g 100 mL/hr cefTRIAXone (ROCEPHIN) 2 g in sodium chloride 0.9% 20 mL IV Push 2 g, Intravenous, at 240 mL/hr, Once, On Sun09/03/24 at 0549, For 1 dose, ADMINISTER IV PUSH. Infuse over 5 minutes. Draw up 20 mL Sodium Chloride 0.9% into empty syringe. Inject 20 mL into vial of Ceftriaxone. Shake well. Withdraw volume into syringe and administer immediately. Given 09/03/2024 6:12 AM EDT 2 g 240 mL/ hr cefTRIAXone (ROCEPHIN) 2 g in sodium chloride 0.9% 20 mL IV Push 2 g, Intravenous, at 240 mL/hr, Once, On Tish 09/04/24 at 0900, For 1 dose, ADMINISTER IV PUSH. Infuse over 5 minutes. Draw up 20 mL Sodium Chloride 0.9% into empty syringe. Inject 20 mL into vial of Ceftriaxone. Shake well. Withdraw volume into syringe and administer immediately. Given 09/04/2024 8:01 AM EDT 2 g 240 mL/ hr cefTRIAXone (ROCEPHIN) 2 g in sodium chloride 0.9% 20 mL IV Push 2 g, Intravenous, at 240 mL/hr, Daily, First dose (after last reorder) on Sun09/05/24 at 0900, ADMINISTER IV PUSH. Infuse over 5 minutes. Draw up 20 mL Sodium Chloride 0.9% into empty syringe. Inject 20 mL into vial of Ceftriaxone. Shake well. Withdraw volume into syringe and administer immediately. Given 09/07/2024 9:29 AM EDT 2 g 240 mL/hr Given 09/06/2024 9:12 AM EDT 2 g 240 mL/hr Given 09/05/2024 8:13 AM EDT 2 g 240 mL/hr cholestyramine (PREVALITE) packet PwPk 4 g 4 g, Oral, Daily, First dose on Sun09/03/24 at 1035, MAX 24 GRAMS PER DAY Given 09/09/2024 8:12 AM EDT 4 g Given 09/08/2024 8:56 AM EDT 4 g Given 09/07/2024 8:32 AM EDT 4 g ciprofloxacin HCl (CIPRO) tablet 500 mg 500 mg, Oral, Every 24 hours scheduled (Daily), First dose on Sun09/08/24 at 1030 Given 09/09/2024 8:13 AM EDT 5 00 mg Given 09/08/2024 12:42 PM EDT 500 mg diphenhydrAMINE (BENADRYL) capsule 25 mg 25 mg, Oral, Once, On Sun09/05/24 at 1000, For 1 dose Given 09/05/2024 9:54 AM EDT 25 mg diphenhydrAMINE (BENADRYL) capsule 25 mg 25 mg, Oral, Once, On 09/06/24 at 0130, For 1 dose Given 09/06/2024 1:30 AM EDT 25 mg diphenhydrAMINE (BENADRYL) capsule 25 mg 25 mg, Oral, Once, On 09/06/24 at 1130, For 1 dose Given 09/06/2024 11:14 AM EDT 25 mg diphenhydrAMINE (BENADRYL) capsule 25 mg 25 mg, Oral, Once, On 09/07/24 at 0800, For 1 dose, To be given before CTX Given 09/07/2024 8:32 AM EDT 25 mg electrolyte-R (pH 7.4) (NORMOSOL-R pH 7.4) IV bolus 250 mL Intravenous, Administer over 1.001 Hours, at 249.8 mL/hr, Once, On Sun09/03/24 at 1350, For 1 dose New Bag 09/03/2024 1:51 PM EDT 250 mLs 249.8 mL/hr folic acid (FOLVITE) tablet 1 mg 1 mg, Oral, Daily, First dose on Sun09/03/24 at 1035 Given 09/09/2024 8:13 AM EDT 1 mg Given 09/08/2024 8:58 AM EDT 1 mg Given 09/07/2024 8:32 AM EDT 1 mg heparin (porcine) injection 5,000 Units 5,000 Units, Subcutaneous, Every 8 hours scheduled (3 times per day), First dose on Sun09/03/24 at 1300, On hold since Sun09/04/2024 at 1104 until manually unheld Given 09/03/2024 8:37 PM EDT 5,000 Units Left Arm Given 09/03/2024 12:23 PM EDT 5,000 Units Right Arm HYDROmorphone (DILAUDID) injection Syrg 1 mg 1 mg, Intravenous, Once, On Sun09/03/24 at 0515, For 1 dose Given 09/03/2024 5:28 AM EDT 1 mg lactulose (CHRONULAC) 10 gram/15 mL solution 20 g 20 g, Oral, 4 times a day, First dose on Sun09/03/24 at 1300, Goal at least 3 BM daily, On hold since 09/06/2024 at 1040 until manually unheld Given 09/06/2024 9:11 AM EDT 20 g Given 09/05/2024 7:58 PM EDT 20 g Given 09/05/2024 5:23 PM EDT 20 g lactulose (CHRONULAC) 10 gram/15 mL solution 20 g 20 g, Oral, 3 times daily PRN, goal at least 3 BM daily, Starting on Sun09/03/24 at 1446 lactulose enema 200 g 200 g, Rectal, 3 times daily PRN, if not able to take lactulose or not having enough BMs, Starting on Sun09/03/24 at 1446, Dilute with 700 mL of water or normal saline. Shake well. Administer via rectal balloon catheter; retain for 30-60 minutes levothyroxine (SYNTHROID) tablet 75 mcg 75 mcg, Oral, Every morning before breakfast, First dose on Sun09/04/24 at 0730, Please hold tube feeds 30 minutes before and 90 minutes after levothyroxine administration. Given 09/09/2024 8:13 AM E DT 75 mcg Given 09/08/2024 8:24 AM EDT 75 mcg Given 09/07/2024 8:32 AM EDT 75 mcg lidocaine 10 mg/mL (1 %) injection Intra-op PRN, Starting on Sun09/04/24 at 1515, Intra-procedure(IR) Given 09/04/2024 3:20 PM EDT 10 mLs Abdominal Tissue lidocaine-EPINEPHrine 2 %-1:100,000 injection 1 mL 1 mL, Intradermal, Once, On Sun09/03/24 at 0557, For 1 dose Given 09/03/2024 6:12 AM EDT 1 mL Other magnesium sulfate in sterile water 100 mL IVPB 4 g 4 g, Intravenous, at 25 mL/hr, Once, On Sun09/03/24 at 1158, For 1 dose New Bag 09/03/2024 12:30 PM EDT 4 g 25 mL/hr magnesium sulfate in sterile water 50 mL IVPB 2 g 2 g, Intravenous, Administer over 120 Minutes, Once, On Sun09/08/24 at 0730, For 1 dose New Bag 09/08/2024 9:00 AM EDT 2 g 25 mL/hr melatonin tablet Tab 3 mg 3 mg, Oral, Nightly PRN, For insomnia, Starting on Sun09/05/24 at 1520, FOR INSOMNIA Given 09/07/2024 9:28 PM EDT 3 mg midodrine (PROAMATINE) tablet 15 mg 15 mg, Oral, 3 times daily, First dose on Sun09/03/24 at 1525 Given 09/05/2024 1:54 PM EDT 15 mg Given 09/05/2024 8:12 AM EDT 15 mg Given 09/04/2024 8:56 PM EDT 15 mg morphine injection 4 mg 4 mg, Intravenous, Once, On Sun09/03/24 at 0732, For 1 dose Given 09/03/2024 7:35 AM EDT 4 mg octreotide (SANDOSTATIN) injection 200 mcg 200 mcg, Subcutaneous, 3 times daily, First dose on Sun09/03/24 at 1525, Allow product to come to room temperature for SUBCUTANEOUS and INTRAMUSCULAR administration. Given 09/04/2024 8:18 AM EDT 200 mcg Abdominal Tissue Given 09/03/2024 8:36 PM EDT 200 mcg Ri ght Arm Given 09/03/2024 3:11 PM EDT 200 mcg Le ft Arm OMNIPAQUE (iohexol) 350 mg iodine/mL 150 mL 150 mL, Intravenous, IMG once as needed, contrast, Starting on Sun09/03/24 at 0627, For 1 dose Given 09/03/2024 5:58 AM EDT 150 mLs ondansetron (ZOFRAN) injection 4 mg 4 mg, Intravenous, Every 8 hours PRN, Nausea and/or Vomiting, Starting on Sun09/03/24 at 1012, If patient not able to tolerate PO, administer IV. Given 09/05/2024 9:19 AM EDT 4 mg Given 09/03/2024 12:54 PM EDT 4 mg oxyCODONE (ROXICODONE) immediate release tablet 2.5 mg 2.5 mg, Oral, Every 4 hours PRN, moderate pain (NRS 4-6) or if patient is non-communicative (CPOT 3-5), Starting on Tish 09/04/24 at 1054 oxyCODONE (ROXICODONE) immediate release tablet 5 mg 5 mg, Oral, Every 4 hours PRN, severe pain (NRS 7-10) or if patient is non-communicative (CPOT 6-8), Starting on Sun09/04/24 at 1054 Given 09/09/2024 12:09 PM EDT 5 mg Given 09/09/2024 7:18 AM EDT 5 mg Given 09/09/2024 1:11 AM EDT 5 mg pantoprazole (PROTONIX) EC tablet 40 mg 40 mg, Oral, Every morning before breakfast, First dose on Sun09/04/24 at 0730, Do Not Crush Given 09/09/2024 8:13 AM EDT 40 mg Given 09/08/2024 8:56 AM EDT 40 mg Given 09/07/2024 8:32 AM EDT 40 mg phytonadione (vitamin K1) (AQUA-MEPHYTON) 10 mg in sodium chloride 0.9 % 50 mL IVPB 10 mg, Intravenous, Administer over 60 Minutes, Once, On Tish 09/04/24 at 1112, For 1 dose, PROTECT FROM LIGHT Bag 09/04/2024 12:04 PM EDT 10 mg 50 mL/hr phytonadione (vitamin K1) (AQUA-MEPHYTON) 10 mg in sodium chloride 0.9 % 50 mL IVPB 10 mg, Intravenous, Administer over 60 Minutes, Daily, First dose (after last reorder) on Sun09/05/24 at 0900, For 2 days, PROTECT FROM LIGHT New Bag 09/06/2024 9:21 AM EDT 10 m g 50 mL/hr Bag 09/05/2024 8:08 AM EDT 10 mg 50 mL/hr potassium chloride (KCl)/Sterile water 100 mL 10 mEq/100 mL IVPB 10 mEq 10 mEq, Intravenous, Administer over 60 Minutes, every 1 hour x 2, First dose on Sun09/03/24 at 0620, For 2 doses, MAX INFUSION RATE VIA PERIPHERAL LINE IS 10 mEq/hr (100 mL/hr). New Bag 09/03/2024 7:28 AM EDT 10 mEq 100 mL/hr Bag 09/03/2024 6:29 AM EDT 10 mEq 100 mL/hr potassium chloride (KCl)/Sterile water 100 mL 10 mEq/100 mL IVPB 10 mEq 10 mEq, Intravenous, Administer over 60 Minutes, every 1 hour x 2, First dose (after last modification) on Sun09/03/24 at 1014, For 2 doses, PERIPHERAL: potassium chloride 40 mEq IVPB replacement (10 mEq Q1h x 4) MAX INFUSION RATE VIA PERIPHERAL LINE IS 10 mEq/hr (100 mL/hr). New Bag 09/03/2024 11:53 AM EDT 10 mEq 100 mL/hr New Bag 09/03/2024 10:51 AM EDT 10 mEq 100 mL/hr potassium chloride (KCl)/Sterile water 100 mL 10 mEq/100 mL IVPB 10 mEq 10 mEq, Intravenous, Administer over 60 Minutes, every 1 hour x 2, First dose (after last reorder) on Sun09/03/24 at 1151, For 2 doses, MAX INFUSION RATE VIA PERIPHERAL LINE IS 10 mEq/hr (100 mL/hr). New Bag 09/03/2024 1:55 PM EDT 10 mEq 100 mL/hr New Bag 09/03/2024 12:57 PM EDT 10 mEq 100 mL/hr potassium chloride (KCl)/Sterile water 100 mL 10 mEq/100 mL IVPB 10 mEq 10 mEq, Intravenous, Administer over 60 Minutes, every 1 hour x 2, First dose (after last reorder) on Sun09/03/24 at 1413, For 2 doses, PERIPHERAL: potassium chloride 40 mEq IVPB replacement (10 mEq Q1h x 4) MAX INFUSION RATE VIA PERIPHERAL LINE IS 10 mEq/hr (100 mL/hr). New Bag 09/03/2024 4:10 PM EDT 10 mEq 100 mL/hr New Bag 09/03/2024 3:06 PM EDT 10 mEq 100 mL/hr potassium chloride (KCl)/Sterile water 100 mL 10 mEq/100 mL IVPB 10 mEq 10 mEq, Intravenous, Administer over 60 Minutes, every 1 hour x 2, First dose (after last reorder) on Sun09/03/24 at 1626, For 2 doses, MAX INFUSION RATE VIA PERIPHERAL LINE IS 10 mEq/hr (100 mL/hr). New Bag 09/03/2024 6:31 PM EDT 10 mEq 100 mL/hr New Bag 09/03/2024 5:11 PM EDT 10 mEq 100 mL/hr potassium chloride (KCl)/Sterile water 100 mL 10 mEq/100 mL IVPB 10 mEq 10 mEq, Intravenous, Administer over 60 Minutes, every 1 hour x 2, First dose (after last reorder) on [facility] 09/04/24 at 2027, For 2 doses, MAX INFUSION RATE VIA PERIPHERAL LINE IS 10 mEq/hr (100 mL/hr). New Bag 09/04/2024 10:17 PM EDT 10 mEq 100 mL/hr New Bag 09/04/2024 9:03 PM EDT 10 mEq 100 mL/hr potassium chloride (KLOR-CON M20) CR tablet 20 mEq 20 mEq, Oral, Once, On Sun09/07/24 at 1830, For 1 dose, FOR PATIENTS UNABLE TO SWALLOW LARGE TABLETS, but can take liquids orally: Place tablet(s) in room temperature or warm water (@ 2-4 ounces) and allow to disintegrate for ~ 30 seconds. Then stir well and administer immediately before particles settle. NOTE: not all particles will go into solution. DO NOT CRUSH or CHEW; TABLET(S) MAY BE SPLIT Given 09/07/2024 6:31 PM EDT 20 mEq potassium chloride (KLOR-CON M20) CR tablet 20 mEq 20 mEq, Oral, Once, On Sun09/08/24 at 0730, For 1 dose, FOR PATIENTS UNABLE TO SWALLOW LARGE TABLETS, but can take liquids orally: Place tablet(s) in room temperature or warm water (@ 2-4 ounces) and allow to disintegrate for ~ 30 seconds. Then stir well and administer immediately before particles settle. NOTE: not all particles will go into solution. DO NOT CRUSH or CHEW; TABLET(S) MAY BE SPLIT Given 09/08/2024 8:57 AM EDT 20 mEq potassium chloride (KLOR-CON M20) CR tablet 40 mEq 40 mEq, Oral, Once, On Sun09/03/24 at 1014, For 1 dose, FOR PATIENTS UNABLE TO SWALLOW LARGE TABLETS, but can take liquids orally: Place tablet(s) in room temperature or warm water (@ 2-4 ounces) and allow to disintegrate for ~ 30 seconds. Then stir well and administer immediately before particles settle. NOTE: not all particles will go into solution. DO NOT CRUSH or CHEW; TABLET(S) MAY BE SPLIT Given 09/03/2024 10:52 AM EDT 40 mEq potassium chloride (KLOR-CON M20) CR tablet 40 mEq 40 mEq, Oral, Once, On Sun09/03/24 at 1151, For 1 dose, FOR PATIENTS UNABLE TO SWALLOW LARGE TABLETS, but can take liquids orally: Place tablet(s) in room temperature or warm water (@ 2-4 ounces) and allow to disintegrate for ~ 30 seconds. Then stir well and administer immediately before particles settle. NOTE: not all particles will go into solution. DO NOT CRUSH or CHEW; TABLET(S) MAY BE SPLIT Given 09/03/2024 12:23 PM EDT 40 mEq potassium chloride (KLOR-CON M20) CR tablet 40 mEq 40 mEq, Oral, Once, On Sun09/03/24 at 1413, For 1 dose, FOR PATIENTS UNABLE TO SWALLOW LARGE TABLETS, but can take liquids orally: Place tablet(s) in room temperature or warm water (@ 2-4 ounces) and allow to disintegrate for ~ 30 seconds. Then stir well and administer immediately before particles settle. NOTE: not all particles will go into solution. DO NOT CRUSH or CHEW; TABLET(S) MAY BE SPLIT Given 09/03/2024 2:18 PM EDT 40 mEq potassium chloride (KLOR-CON M20) CR tablet 40 mEq 40 mEq, Oral, Once, On Sun09/03/24 at 1626, For 1 dose, FOR PATIENTS UNABLE TO SWALLOW LARGE TABLETS, but can take liquids orally: Place tablet(s) in room temperature or warm water (@ 2-4 ounces) and allow to disintegrate for ~ 30 seconds. Then stir well and administer immediately before particles settle. NOTE: not all particles will go into solution. DO NOT CRUSH or CHEW; TABLET(S) MAY BE SPLIT Given 09/03/2024 4:32 PM EDT 40 mEq potassium chloride (KLOR-CON M20) CR tablet 40 mEq 40 mEq, Oral, Once, On Sun09/04/24 at 0816, For 1 dose, FOR PATIENTS UNABLE TO SWALLOW LARGE TABLETS, but can take liquids orally: Place tablet(s) in room temperature or warm water (@ 2-4 ounces) and allow to disintegrate for ~ 30 seconds. Then stir well and administer immediately before particles settle. NOTE: not all particles will go into solution. DO NOT CRUSH or CHEW; TABLET(S) MAY BE SPLIT Given 09/04/2024 9:33 AM EDT 40 mEq potassium chloride (KLOR-CON M20) CR tablet 40 mEq 40 mEq, Oral, Once, On Sun09/04/24 at 2025, For 1 dose, FOR PATIENTS UNABLE TO SWALLOW LARGE TABLETS, but can take liquids orally: Place tablet(s) in room temperature or warm water (@ 2-4 ounces) and allow to disintegrate for ~ 30 seconds. Then stir well and administer immediately before particles settle. NOTE: not all particles will go into solution. DO NOT CRUSH or CHEW; TABLET(S) MAY BE SPLIT Given 09/04/2024 8:56 PM EDT 40 mEq potassium chloride (KLOR-CON M20) CR tablet 40 mEq 40 mEq, Oral, Once, On 09/06/24 at 0800, For 1 dose, FOR PATIENTS UNABLE TO SWALLOW LARGE TABLETS, but can take liquids orally: Place tablet(s) in room temperature or warm water (@ 2-4 ounces) and allow to disintegrate for ~ 30 seconds. Then stir well and administer immediately before particles settle. NOTE: not all particles will go into solution. DO NOT CRUSH or CHEW; TABLET(S) MAY BE SPLIT Given 09/06/2024 9:12 AM EDT 40 mEq potassium chloride (KLOR-CON M20) CR tablet 40 mEq 40 mEq, Oral, Once, On 09/06/24 at 1800, For 1 dose, FOR PATIENTS UNABLE TO SWALLOW LARGE TABLETS, but can take liquids orally: Place tablet(s) in room temperature or warm water (@ 2-4 ounces) and allow to disintegrate for ~ 30 seconds. Then stir well and administer immediately before particles settle. NOTE: not all particles will go into solution. DO NOT CRUSH or CHEW; TABLET(S) MAY BE SPLIT Given 09/06/2024 6:47 PM EDT 40 mEq potassium chloride (KLOR-CON M20) CR tablet 40 mEq 40 mEq, Oral, Once, On 09/06/24 at 2200, For 1 dose, FOR PATIENTS UNABLE TO SWALLOW LARGE TABLETS, but can take liquids orally: Place tablet(s) in room temperature or warm water (@ 2-4 ounces) and allow to disintegrate for ~ 30 seconds. Then stir well and administer immediately before particles settle. NOTE: not all particles will go into solution. DO NOT CRUSH or CHEW; TABLET(S) MAY BE SPLIT Given 09/06/2024 8:48 PM EDT 40 mEq potassium chloride (KLOR-CON M20) CR tablet 40 mEq 40 mEq, Oral, Once, On Sun09/07/24 at 0730, For 1 dose, FOR PATIENTS UNABLE TO SWALLOW LARGE TABLETS, but can take liquids orally: Place tablet(s) in room temperature or warm water (@ 2-4 ounces) and allow to disintegrate for ~ 30 seconds. Then stir well and administer immediately before particles settle. NOTE: not all particles will go into solution. DO NOT CRUSH or CHEW; TABLET(S) MAY BE SPLIT Given 09/07/2024 10:01 AM EDT 40 mEq potassium chloride (KLOR-CON M20) CR tablet 40 mEq 40 mEq, Oral, Once, On Sun09/07/24 at 0730, For 1 dose, FOR PATIENTS UNABLE TO SWALLOW LARGE TABLETS, but can take liquids orally: Place tablet(s) in room temperature or warm water (@ 2-4 ounces) and allow to disintegrate for ~ 30 seconds. Then stir well and administer immediately before particles settle. NOTE: not all particles will go into solution. DO NOT CRUSH or CHEW; TABLET(S) MAY BE SPLIT Given 09/07/2024 8:42 AM EDT 40 mEq potassium chloride (KLOR-CON M20) CR tablet 40 mEq 40 mEq, Oral, Once, On Sun09/08/24 at 0930, For 1 dose, FOR PATIENTS UNABLE TO SWALLOW LARGE TABLETS, but can take liquids orally: Place tablet(s) in room temperature or warm water (@ 2-4 ounces) and allow to disintegrate for ~ 30 seconds. Then stir well and administer immediately before particles settle. NOTE: not all particles will go into solution. DO NOT CRUSH or CHEW; TABLET(S) MAY BE SPLIT Given 09/08/2024 12:42 PM EDT 40 mEq rifAXIMin (XIFAXAN) tablet 550 mg 550 mg, Oral, 2 times daily, First dose on Sun09/03/24 at 1035 Given 09/09/2024 8:13 AM EDT 550 mg Given 09/08/2024 8:55 PM EDT 550 mg Given 09/08/2024 8:56 AM EDT 550 mg sod phos di, mono-K phos mono (K-PHOS NEUTRAL) 250 mg tablet Tab 250 mg 250 mg, Oral, Once, On Sun09/07/24 at 1030, For 1 dose, Each 250 mg tablet of KPhos Neutral contains: Phosphorus = 8 mmol; Sodium = 13 mEq; Potassium = 1.1 mEq Given 09/07/2024 12:13 PM E DT 250 mg sodium bicarbonate tablet 1,300 mg 1,300 mg, Oral, 3 times daily, First dose on Sun09/03/24 at 1300 Given 09/09/2024 12:09 PM EDT 1,300 mg Given 09/09/2024 8:13 AM EDT 1,300 mg Given 09/08/2024 8:55 PM EDT 1,300 mg thiamine (B-1) injection 200 mg 200 mg, Intravenous, Administer over 2 Minutes, Every 8 hours, First dose on Sun09/03/24 at 1036, For 2 days, PROTECT FROM LIGHT. Given 09/05/2024 2:11 AM EDT 200 mg Given 09/04/2024 6:21 PM EDT 200 mg Given 09/04/2024 10:13 AM EDT 200 mg thiamine mononitrate (VITAMIN B-1) tablet 100 mg 100 mg, Oral, Daily, First dose on Sun09/07/24 at 1100 Given 09/09/2024 8:13 AM EDT 100 mg Given 09/08/2024 8:57 AM EDT 100 mg Given 09/07/2024 12:18 PM EDT 100 mg ursodioL (ACTIGALL) capsule 300 mg 300 mg, Oral, 2 times daily, First dose on Sun09/05/24 at 1030 Given 09/09/2024 8:13 AM EDT 300 mg Given 09/08/2024 8:55 PM EDT 300 mg Given 09/08/2024 8:57 AM EDT 300 mg vancomycin (VANCOCIN) 50 mg/mL oral suspension 125 mg 125 mg, Oral, Every 6 hours scheduled (4 times per day), First dose on Sun09/09/24 at 1400, For 14 days Given 09/09/2024 5:56 PM EDT 125 mg Given 09/09/2024 3:57 PM EDT 125 mg vancomycin (VANCOCIN) 50 mg/mL oral suspension 125 mg 125 mg, Oral, Every 12 hours scheduled (2 times per day), First dose on Sun09/24/24 at 0900, For 7 days vancomycin (VANCOCIN) 50 mg/mL oral suspension 125 mg 125 mg, Oral, Every 24 hours scheduled (Daily), First dose on Sun10/01/24 at 0900, For 7 days vancomycin (VANCOCIN) 50 mg/mL oral suspension 125 mg 125 mg, Oral, Every 48 hours, First dose on Sun10/08/24 at 0900, For 7 days vancomycin (VANCOCIN) 50 mg/mL oral suspension 125 mg 125 mg, Oral, Every 72 hours, First dose on Tish 10/16/24 at 0900, For 7 days zinc sulfate (ZINCATE) capsule 220 mg 220 mg, Oral, Daily, First dose on Sun09/03/24 at 1036, each capsule contains 50 mg elemental zinc Given 09/09/2024 8:13 AM EDT 220 mg Given 09/08/2024 8:56 AM EDT 220 mg Given 09/07/2024 8:32 AM EDT 220 mg documented in this encounter Active and Recently Administered Medications Times are shown in EDT. Scheduled Medication Order 09/07/2024 09/08/2024 09/09/2024 albumin human 25% (CANCELED) 12.5 g, Intravenous, Every 30 min, First dose on Sun09/07/24 at 0900, For 8 doses, In Emergencies, may administer as rapidly as needed to improve clinical status., Select indication for use: Cirrhosis: Spontaneous Bacterial Peritonitis, at 100 mL/hr 0846 (New Bag - Provider: Yolette Yang RN)0951 (Not Given - Provider: Yolette Yang RN - Reason: Order parameters not met) albumin human 25% (COMPLETED) 12.5 g, Intravenous, Every 30 min, First dose on Sun09/09/24 at 1600, For 4 doses, Dosing is 6 grams/L of ascites fluid removed. In Emergencies, may administer as rapidly as needed to improve clinical status., Select indication for use: Cirrhosis: Large Volume Paracentesis (>5 L), at 100 mL/hr 1604 (New Bag - Provider: Capri Schwarz RN)1606 (New Bag - Provider: Capri Schwarz RN)1636 (New Bag - Provider: Capri Schwarz RN)1710 (New Bag - Provider: Capri Schwarz RN) cefTRIAXone (ROCEPHIN) 2 g in sodium chloride 0.9% 20 mL IV Push (CANCELED) 2 g, Intravenous, at 240 mL/hr, Daily, First dose (after last reorder) on Sun09/05/24 at 0900, ADMINISTER IV PUSH. Infuse over 5 minutes. Draw up 20 mL Sodium Chloride 0.9% into empty syringe. Inject 20 mL into vial of Ceftriaxone. Shake well. Withdraw volume into syringe and administer immediately. 0929 (Given - Provider: Yolette Yang RN) 0800 (Not Given - Provider: Sofía Perkins RN - Reason: Other - Comment: order DCd) cholestyramine (PREVALITE) packet PwPk 4 g 4 g, Oral, Daily, First dose on Sun09/03/24 at 1035, MAX 24 GRAMS PER DAY 0832 (Given - Provider: Yolette Yang RN) 0856 (Given - Provider: Sofía Perkins RN) 0812 (Given - Provider: Capri Schwarz RN) ciprofloxacin HCl (CIPRO) tablet 500 mg 500 mg, Oral, Every 24 hours scheduled (Daily), First dose on Sun09/08/24 at 1030 1242 (Given - Provider: Sofía Perkins RN) 0813 (Given - Provider: Capri Schwarz RN) diphenhydrAMINE (BENADRYL) capsule 25 mg (COMPLETED) 25 mg, Oral, Once, On Sun09/07/24 at 0800, For 1 dose, To be given before CTX 0832 (Given - Provider: Yolette Yang RN) folic acid (FOLVITE) tablet 1 mg 1 mg, Oral, Daily, First dose on Sun09/03/24 at 1035 0832 (Given - Provider: Yolette Yang RN) 0858 (Given - Provider: Sofía Perkins RN) 0813 (Given - Provider: Capri Schwarz RN) heparin (porcine) injection 5,000 Units 5,000 Units, Subcutaneous, Every 8 hours scheduled (3 times per day), First dose on Sun09/03/24 at 1300, On hold since Sun09/04/2024 at 1104 until manually unheld 0500 (Not Given - Provider: Baudilio Macario RN - Reason: Other - Comment: Held by provider)1300 (Not Given - Provider: Yolette Yang RN - Reason: Order parameters not met)2100 (Automatically Held - Provider: Krista Bernard RN) 0500 (Automatically Held - Provider: Kiet Ramirez MD)1300 (Automatically Held - Provider: Kiet Ramirez MD)2100 (Not Given - Provider: Lydia Harrison RN - Reason: Other - Comment: Hold per MD) 0500 (Automatically Held - Provider: Kiet Ramirez MD)1300 (Automatically Held - Provider: Kiet Ramirez MD)2225 (Unheld by provider - Provider: Automatic Discharge Provider) lactulose (CHRONULAC) 10 gram/15 mL solution 20 g 20 g, Oral, 4 times a day, First dose on Sun09/03/24 at 1300, Goal at least 3 BM daily, On hold since 09/06/2024 at 1040 until manually unheld 0900 (Not Given - Provider: Yolette Yang RN - Reason: Order parameters not met)1300 (Not Given - Provider: Yolette Yang RN - Reason: Order parameters not met)1700 (Hold - Provider: Yolette Yang RN - Reason: Order parameters not met)2100 (Automatically Held - Provider: Krista Bernard RN) 0900 (Automatically Held - Provider: Azalea Hughes DO)1300 (Automatically Held - Provider: Azalea Hughes DO)1700 (Automatically Held - Provider: Azalea Hughes DO)2100 (Not Given - Provider: Lydia Harrison RN - Reason: Other - Comment: Hold per MD) 0900 (Automatically Held - Provider: Azalea Hughes DO)1300 (Automatically Held - Provider: Azalea Hughes DO)1700 (Automatically Held - Provider: Azalea Hughes DO)2225 (Unheld by provider - Provider: Automatic Discharge Provider) levothyroxine (SYNTHROID) tablet 75 mcg 75 mcg, Oral, Every morning before breakfast, First dose on Sun09/04/24 at 0730, Please hold tube feeds 30 minutes before and 90 minutes after levothyroxine administration. 0832 (Given - Provider: Yolette Yang RN) 0824 (Given - Provider: Sofía Perkins RN) 0813 (Given - Provider: Capri Schwarz RN) magnesium sulfate in sterile water 50 mL IVPB 2 g (COMPLETED) 2 g, Intravenous, Administer over 120 Minutes, Once, On Sun09/08/24 at 0730, For 1 dose 0900 (New Bag - Provider: Sofía Perkins RN) pantoprazole (PROTONIX) EC tablet 40 mg 40 mg, Oral, Every morning before breakfast, First dose on Tish 09/04/24 at 0730, Do Not Crush 0832 (Given - Provider: Yolette Yang RN) 0856 (Given - Provider: Sofía Perkins RN) 0813 (Given - Provider: Capri Schwarz RN) potassium chloride (KLOR-CON M20) CR tablet 20 mEq (COMPLETED) 20 mEq, Oral, Once, On Sun09/07/24 at 1830, For 1 dose, FOR PATIENTS UNABLE TO SWALLOW LARGE TABLETS, but can take liquids orally: Place tablet(s) in room temperature or warm water (@ 2-4 ounces) and allow to disintegrate for ~ 30 seconds. Then stir well and administer immediately before particles settle. NOTE: not all particles will go into solution. DO NOT CRUSH or CHEW; TABLET(S) MAY BE SPLIT 1830 (Given - Provider: Gerda Guerra RN) potassium chloride (KLOR-CON M20) CR tablet 20 mEq (COMPLETED) 20 mEq, Oral, Once, On Sun09/08/24 at 0730, For 1 dose, FOR PATIENTS UNABLE TO SWALLOW LARGE TABLETS, but can take liquids orally: Place tablet(s) in room temperature or warm water (@ 2-4 ounces) and allow to disintegrate for ~ 30 seconds. Then stir well and administer immediately before particles settle. NOTE: not all particles will go into solution. DO NOT CRUSH or CHEW; TABLET(S) MAY BE SPLIT 0857 (Given - Provider: Sofía Perkins RN) potassium chloride (KLOR-CON M20) CR tablet 40 mEq (COMPLETED) 40 mEq, Oral, Once, On Sun09/07/24 at 0730, For 1 dose, FOR PATIENTS UNABLE TO SWALLOW LARGE TABLETS, but can take liquids orally: Place tablet(s) in room temperature or warm water (@ 2-4 ounces) and allow to disintegrate for ~ 30 seconds. Then stir well and administer immediately before particles settle. NOTE: not all particles will go into solution. DO NOT CRUSH or CHEW; TABLET(S) MAY BE SPLIT 1001 (Given - Provider: Yolette Yang RN) potassium chloride (KLOR-CON M20) CR tablet 40 mEq (COMPLETED) 40 mEq, Oral, Once, On Sun09/07/24 at 0730, For 1 dose, FOR PATIENTS UNABLE TO SWALLOW LARGE TABLETS, but can take liquids orally: Place tablet(s) in room temperature or warm water (@ 2-4 ounces) and allow to disintegrate for ~ 30 seconds. Then stir well and administer immediately before particles settle. NOTE: not all particles will go into solution. DO NOT CRUSH or CHEW; TABLET(S) MAY BE SPLIT 0842 (Given - Provider: Yolette Yang RN) potassium chloride (KLOR-CON M20) CR tablet 40 mEq (COMPLETED) 40 mEq, Oral, Once, On Sun09/08/24 at 0930, For 1 dose, FOR PATIENTS UNABLE TO SWALLOW LARGE TABLETS, but can take liquids orally: Place tablet(s) in room temperature or warm water (@ 2-4 ounces) and allow to disintegrate for ~ 30 seconds. Then stir well and administer immediately before particles settle. NOTE: not all particles will go into solution. DO NOT CRUSH or CHEW; TABLET(S) MAY BE SPLIT 1242 (Given - Provider: Sofía Perkins RN) rifAXIMin (XIFAXAN) tablet 550 mg 550 mg, Oral, 2 times daily, First dose on Sun09/03/24 at 1035 0832 (Given - Provider: Yolette Yang RN)2123 (Given - Provider: Krista Bernard RN) 0856 (Given - Provider: Sofía Perkins RN)205 (Given - Provider: Lydia Harrison RN) 0813 (Given - Provider: Capri Schwarz RN) sod phos di, mono-K phos mono (K-PHOS NEUTRAL) 250 mg tablet Tab 250 mg (COMPLETED) 250 mg, Oral, Once, On 09/07/24 at 1030, For 1 dose, Each 250 mg tablet of KPhos Neutral contains: Phosphorus = 8 mmol; Sodium = 13 mEq; Potassium = 1.1 mEq 1213 (Given - Provider: Yolette Yang RN) sodium bicarbonate tablet 1,300 mg 1,300 mg, Oral, 3 times daily, First dose on Sun09/03/24 at 1300 0832 (Given - Provider: Yolette Yang RN)1213 (Given - Provider: Yolette Yang RN)2123 (Given - Provider: Krista Bernard RN) 0856 (Given - Provider: Sofía Perkins RN)1242 (Given - Provider: Sofía Perkins RN)2054 (Given - Provider: Lydia Harrison RN) 0813 (Given - Provider: Capri Schwarz RN)1209 (Given - Provider: Capri Schwarz RN) thiamine mononitrate (VITAMIN B-1) tablet 100 mg 100 mg, Oral, Daily, First dose on Sun09/07/24 at 1100 1218 (Given - Provider: Yolette Yang RN) 0857 (Given - Provider: Sofía Perkins RN) 08 (Given - Provider: Capri Schwarz RN) ursodioL (ACTIGALL) capsule 300 mg 300 mg, Oral, 2 times daily, First dose on Sun09/05/24 at 1030 0832 (Given - Provider: Yolette Yang RN)2123 (Given - Provider: Krista Bernard RN) 0857 (Given - Provider: Sofía Perkins RN)2054 (Given - Provider: Lydia Harrison RN) 0813 (Given - Provider: Capri Schwarz RN) vancomycin (VANCOCIN) 50 mg/mL oral suspension 125 mg(Linked Group 1) 125 mg, Oral, Every 6 hours scheduled (4 times per day), First dose on Sun09/09/24 at 1400, For 14 days 1557 (Given - Provider: Capri Schwarz RN)1756 (Given - Provider: Capri Schwarz RN) vancomycin (VANCOCIN) 50 mg/mL oral suspension 125 mg(Linked Group 1) 125 mg, Oral, Every 12 hours scheduled (2 times per day), First dose on Sun09/24/24 at 0900, For 7 days vancomycin (VANCOCIN) 50 mg/mL oral suspension 125 mg(Linked Group 1) 125 mg, Oral, Every 24 hours scheduled (Daily), First dose on Sun10/01/24 at 0900, For 7 days vancomycin (VANCOCIN) 50 mg/mL oral suspension 125 mg(Linked Group 1) 125 mg, Oral, Every 48 hours, First dose on Sun10/08/24 at 0900, For 7 days vancomycin (VANCOCIN) 50 mg/mL oral suspension 125 mg(Linked Group 1) 125 mg, Oral, Every 72 hours, First dose on Sun10/16/24 at 0900, For 7 days zinc sulfate (ZINCATE) capsule 220 mg 220 mg, Oral, Daily, First dose on Sun09/03/24 at 1036, each capsule contains 50 mg elemental zinc 0832 (Given - Provider: Yolette Yang RN) 0856 (Given - Provider: Sofía Perkins RN) 0813 (Given - Provider: Capri Schwarz RN) PRN Medication Order 09/07/2024 09/08/2024 09/09/2024 acetaminophen (TYLENOL) tablet 650 mg 650 mg, Oral, Every 8 hours PRN, severe pain (NRS 7-10) or if patient is non-communicative (CPOT 6-8), moderate pain (NRS 4-6) or if patient is non-communicative (CPOT 3-5), Starting on Sun09/03/24 at 1440, Maximum dose of acetaminophen is 4000 mg (4 grams) from all sources in 24 hours. 180 (Given - Provider: Gerda Guerra RN) lactulose (CHRONULAC) 10 gram/15 mL solution 20 g 20 g, Oral, 3 times daily PRN, goal at least 3 BM daily, Starting on Sun09/03/24 at 1446 lactulose enema 200 g 200 g, Rectal, 3 times daily PRN, if not able to take lactulose or not having enough BMs, Starting on Sun09/03/24 at 1446, Dilute with 700 mL of water or normal saline. Shake well. Administer via rectal balloon catheter; retain for 30-60 minutes melatonin tablet Tab 3 mg 3 mg, Oral, Nightly PRN, For insomnia, Starting on Sun09/05/24 at 1520, FOR INSOMNIA 2127 (Given - Provider: Krista Bernard RN) ondansetron (ZOFRAN) injection 4 mg 4 mg, Intravenous, Every 8 hours PRN, Nausea and/or Vomiting, Starting on Sun09/03/24 at 1012, If patient not able to tolerate PO, administer IV. oxyCODONE (ROXICODONE) immediate release tablet 2.5 mg(Linked Group 2) 2.5 mg, Oral, Every 4 hours PRN, moderate pain (NRS 4-6) or if patient is non-communicative (CPOT 3-5), Starting on Sun09/04/24 at 1054 0842 (See Alternative - Provider: Yolette Yang RN)1522 (See Alternative - Provider: Gerda Guerra RN)2126 (See Alternative - Provider: Krista Bernard RN) 0425 (See Alternative - Provider: Krista Bernard RN)1112 (See Alternative - Provider: Sofía Perkins RN)1536 (See Alternative - Provider: Sofía Perkins RN)2055 (See Alternative - Provider: Lydia Harrison RN) 0111 (See Alternative - Provider: Cleveland Villalta, RN)0718 (See Alternative - Provider: Cleveland Villalta RN)1209 (See Alternative - Provider: Capri Schwarz RN) oxyCODONE (ROXICODONE) immediate release tablet 5 mg(Linked Group 2) 5 mg, Oral, Every 4 hours PRN, severe pain (NRS 7-10) or if patient is non-communicative (CPOT 6-8), Starting on Sun09/04/24 at 1054 0842 (Given - Provider: Yolette Yang RN)1522 (Given - Provider: Gerda Guerra RN)2127 (Given - Provider: Krista Bernard RN) 0425 (Given - Provider: Krista Bernard RN)1112 (Given - Provider: Sofía Perkins RN)1536 (Given - Provider: Sofía Perkins RN)2054 (Given - Provider: Lydia Harrison RN) 011 (Given - Provider: Cleveland Villalta RN)0718 (Given - Provider: Cleveland Villalta RN)1209 (Given - Provider: Capri Schwarz RN) Linked Groups Order Group 1: vancomycin (VANCOCIN) 50 mg/mL oral suspension 125 mgJump to med 125 mg, Oral, Every 6 hours scheduled (4 times per day), First dose on Sun09/09/24 at 1400, For 14 days Followed by vancomycin (VANCOCIN) 50 mg/mL oral suspension 125 mgJump to med 125 mg, Oral, Every 12 hours scheduled (2 times per day), First dose on Sun09/24/24 at 0900, For 7 days Followed by vancomycin (VANCOCIN) 50 mg/mL oral suspension 125 mgJump to med 125 mg, Oral, Every 24 hours scheduled (Daily), First dose on Sun10/01/24 at 0900, For 7 days Followed by vancomycin (VANCOCIN) 50 mg/mL oral suspension 125 mgJump to med 125 mg, Oral, Every 48 hours, First dose on Sun10/08/24 at 0900, For 7 days Followed by vancomycin (VANCOCIN) 50 mg/mL oral suspension 125 mgJump to med 125 mg, Oral, Every 72 hours, First dose on Sun10/16/24 at 0900, For 7 days Group 2: oxyCODONE (ROXICODONE) immediate release tablet 2.5 mgJump to med 2.5 mg, Oral, Every 4 hours PRN, moderate pain (NRS 4-6) or if patient is non-communicative (CPOT 3-5), Starting on Sun09/04/24 at 1054 Or oxyCODONE (ROXICODONE) immediate release tablet 5 mgJump to med 5 mg, Oral, Every 4 hours PRN, severe pain (NRS 7-10) or if patient is non-communicative (CPOT 6-8), Starting on Sun09/04/24 at 1054 documented in this encounter Additional Health Concerns Infection Onset Date Last Indicated Resolved Time Rule Out C. difficile 09/08/2024 09/08/20242024 10:56 PM EDT Rule Out C. difficile 09/09/2024 09/09/20242024 1:20 PM EDT C. difficile 09/09/2024 09/09/2024 documented as of this encounter
--- OUTSIDE RECORDS SUMMARY | 2024-09-25 11:25 | XMS_ITS | Encounter Summary ---
Author Organization [facility] Address [address] [place] [address] Care Team Providers Care Vacuum Spindle Sander Name Role Phone Unavailable Primary Care Provider [...] release of HIV test results or diagnoses. [id number] Reason for Visit * Reason Comments Labs Only Encounter Details Date Type Department Care Team (Late st Contact Info) Description 09/25/2024 11:25 AM EDT Specimen [facility] Outreach Lab [address] [place] [phone] Gerri Peterson MD [facility] [place] [address] Cirrhosis of liver with ascites, [...] Recorded In the past 12 months has [employer], oil, or water [employer] threatened to shut off services in your [...] any time in the past 12 m [facility], were you homeless or living [...] Description 12/05/2024 8:01 AM EDT Hospital Encounter [facility] ENDOSCOPY [address] [place] [address] Chris Orosco MD [address] [place] [phone] 12/05/2024 8:01 AM EDT - 12/05/2024 8:31 AM EDT Surgery [facility] ENDOSCOPY [address] [place] [address] Chris Orosco MD [address] [place] [address] EGD Scheduled Procedures Name Priority Associated Diagnoses [...] BARBITURATES NOT PRESENT 09/29/2024 12:39 PM EDT [facility] BENZODIAZEPINES NOT PRESENT 09/30/19 12:39 PM EDT [facility] CANNABINOIDS NOT PRESENT 09/29/2024 12:39 PM EDT [facility] BRAKE REPAIRER STIMULANTS NOT PRESENT 12:39 PM EDT [facility] OPIOID ANALGESICS PRESENT 025 12:39 PM EDT [facility] Tramadol >1000 ng/mL 09/29/2024 12:39 PM EDT [facility] OPIOID ANTAGONISTS NOT PRESENT 09/29 12:39 PM EDT [facility] SEDATIVES/MUSCLE RELAXANTS NOT PRESENT 09/29/2024 12:39 PM EDT [facility] TRICYCLIC ANTIDEPRESSANTS NOT PRESENT 09/29/2024 12:39 PM EDT [facility] Creatinine, Ur 122.10 mg/dL 09/26/2024 11:30 AM EDT [facility] Comment:Reference range not established for this test. pH 5.8 4.7 - 7.8 09/26/2024 11:30 AM EDT [facility] Specific [place] 1.010 1.003 - 1.035 09/26/2024 11:30 AM EDT [facility] Urine 09/25/2024 11:5 5 AM EDT 09/25/2024 12:19 PM EDT Narrative [facility] - 09/29/2024 12:39 PM EDT This test has been developed and its performance characteristics determined by [facility] which is certified under [...] Chinedu Sidhu MD URINE ORDERABLES Final Result [facility] [address] [place] [address], [facility] * Phosphatidylethanol Confirmation, B (09/25/2024 11:55 AM EDT) PETH 16:0/18.1 (POPETH) <10 Cutoff: 10 ng/mL 09/29/2024 12:24 PM EDT [facility] Comment: Phosphatidylethanol (PEth) homologues result interpretation [...] Cutoff: 10 ng/mL 09/29/2024 12:24 PM EDT [facility] Comment: PEth 16:0/18:2 (PLPEth) Reference ranges are not well established PEth Interpretation Negative. 09/29 12:24 PM EDT [facility] Comment: ADDITIONAL INFORMATION This report is intended for use in clinical monitoring and management of patients. It is not intended for use in employment-related testing. This test was developed and its performance characteristics determined by [facility] in a manner consistent with CLIA requirements. This test has not been cleared or approved by the U.S. Food and Drug Administration. Test Performed by: [facility] [place] [id number] [place] [address] Outside Maintenance Worker: Kathy Ortiz Ph.D.; CLIA# [id number] Whole Blood 09/25/2024 11:5 5 AM EDT 09/29/2024 12:24 PM EDT Chinedu Sidhu MD LAB BLOOD ORDERABLES Final Re sult Performing Organization Address [facility] Co de Phone Number [facility] [address] * (ABNORMAL) Hepatic Function Panel (09/25/2024 11:55 AM EDT) Total Bilirubin 20.2(H) 0.0 - 1.5 mg/dL 09/25/2024 1:02 PM EDT [facility] Bilirubin, Direct 13.33(H) 0.00 - 0.40 mg/dL 09/25/2024 1:02 PM EDT [facility] AST 57(H) 13 - 39 U/L 09/25/2024 1:02 PM EDT [facility] ALT 29 7 - 52 U/L 09/25/2024 1:02 PM EDT [facility] Alkaline Phosphatase 171(H) 36 - 125 U/L 09/25/2024 1:02 PM EDT [facility] Total Protein 5.6(L) 6.4 - 8.9 g/dL 09/25/2024 1:02 PM EDT [facility] Albumin 3.5 3.5 - 5.7 g/dL 09/25/2024 1:02 PM EDT [facility] Bilirubin, Indirect 6.87(H) 0.00 - 1.10 mg/dL 09/25/2024 1:02 PM EDT [facility] Plasma 09/25/2024 11:5 5 AM EDT 09/25/2024 12:21 PM EDT Gerri Peterson MD LAB BLOOD ORDERABLES Final Resu lt Performing Organization Address City/[facility]/ZIP Co de Phone Number [facility] [address] [facility]. [address] * (ABNORMAL) Protime-INR (09/25/2024 11:55 AM EDT) Pathologist [facility] Protime 23.6(H) 12.1 - 15.1 seconds 09/25/2024 12:46 PM EDT [facility] INR 2.0(H) 0.9 - 1.1 09/25/2024 12:46 PM EDT [facility] Comment: RECOMMENDED THERAPEUTIC RANGES USING INR : Stable oral anticoagulant therapy: 2.0 - 3.0 Mechanical prosthetic heart valve: 2.5 - 3.5 Recurrent acute myocardial infarction: 2.5 - 3.5 Plasma 09/25/2024 11:5 5 AM EDT 09/25/2024 12:20 PM EDT us Gerri Peterson MD LAB BLOOD ORDERABLES Final Resu lt [facility] [address] [place] [address], [facility] * (ABNORMAL) CBC (09/25/2024 11:55 AM EDT) Pathologist [facility] WBC 8.2 3.8 - 10.8 10E3/uL 09/25/2024 1:43 PM EDT [facility] RBC 2.88(L) 4.20 - 5.80 10E6/uL 09/25/2024 1:43 PM EDT [facility] Hemoglobin 10.8(L) 13.2 - 17.1 g/dL 09/25/2024 1:43 PM EDT [facility] Hematocrit 29.8(L) 38.5 - 50.0 % 09/25/2024 1:43 PM EDT [facility] MCV 103.5(H) 80.0 - 100.0 fL 09/25/2024 1:43 PM EDT [facility] MCH 37.6(H) 27.0 - 33.0 pg 09/25/2024 1:43 PM EDT [facility] MCHC 36.3(H) 32.0 - 36.0 g/dL 09/25/2024 1:43 PM EDT [facility] RDW 20.1(H) 11.0 - 15.0 % 09/25/2024 1:43 PM EDT [facility] Platelets 62(L) 140 - 400 10E3/uL 09/25/2024 1:43 PM EDT [facility] Comment: _Platelets Appear Decreased Slide Reviewed for PLT Clumps. None Seen. Specimen checked for clots. None detected. MPV 8.3 7.5 - 11.5 fL 09/25/2024 1:43 PM EDT [facility] Whole Blood 09/25/2024 11:5 5 AM EDT 09/25/2024 12:20 PM EDT us Gerri Peterson MD LAB BLOOD ORDERABLES Final Resu lt [facility] [address] [place] [address], [facility] * (ABNORMAL) Comprehensive metabolic panel (09/25/2024 11:55 AM EDT) Sodium 133 133 - 146 mmol/L 09/25/2024 12:50 PM EDT [facility] Potassium 4.1 3.5 - 5.3 mmol/L 09/25/2024 12:50 PM EDT [facility] Chloride 103 98 - 110 mmol/L 09/25/2024 12:50 PM EDT [facility] CO2 18(L) 21 - 33 mmol/L 09/25/2024 12:50 PM EDT [facility] Anion Gap 12 3 - 16 mmol/L 09/25/2024 12:50 PM EDT [facility] BUN 42(H) 7 - 25 mg/dL 09/25/2024 12:50 PM EDT [facility] Creatinine 3.13(H) 0.60 - 1.30 mg/dL 09/25/2024 12:50 PM EDT [facility] Glucose 106(H) 70 - 100 mg/dL 09/25/2024 12:50 PM EDT [facility] Calcium 9.3 8.6 - 10.3 mg/dL 09/25/2024 12:50 PM EDT [facility] Total Bilirubin 20.2(H) 0.0 - 1.5 mg/dL 09/25/2024 1:02 PM EDT [facility] AST 57(H) 13 - 39 U/L 09/25/2024 1:02 PM EDT [facility] ALT 29 7 - 52 U/L 09/25/2024 1:02 PM EDT [facility] Alkaline Phosphatase 171(H) 36 - 125 U/L 09/25/2024 1:02 PM EDT [facility] Total Protein 5.6(L) 6.4 - 8.9 g/dL 09/25/2024 1:02 PM EDT [facility] Albumin 3.5 3.5 - 5.7 g/dL 09/25/2024 1:02 PM EDT [facility] Osmolality, Calculated 287 278 - 305 mOsm/kg 09/25/2024 12:50 PM EDT [facility] EGFR 25 09/25/2024 12:50 PM EDT [facility] Comment:As of 2021, the estimated GFR [...] MD LAB BLOOD ORDERABLES Final Resu lt [facility] [address] [place] [address], [facility] documented in this encounter Visit Diagnoses Diagnosis Cirrhosis of liver with ascites, unspecified hepatic cirrhosis type (CMS-HCC) Pre-transplant evaluation for chronic liver disease Alcoholic cirrhosis of liver without ascites (CMS-HCC) Cirrhosis of liver with ascites, unspecified hepatic cirrhosis type (CMS-HCC) documented in this encounter Additional Health Concerns Infection Onset Date Last Indicated Resolved Time C. difficile 09/09/2024 09/09/2024 documented as of this encounter
--- OUTSIDE RECORDS SUMMARY | 2024-09-29 11:00 | XMS_ITS | Encounter Summary ---
Author Organization [facility] Address [address] [place] [address] Care Team Providers Care Archeology Professor Name Role Phone Unavailable Primary Care Provider [...] release of HIV test results or diagnoses. [id number] Health Encounter Details Date Type Department Care Team (Late st Contact Info) Description 09/29/2024 11:00 AM EDT Office Visit [facility] Psychiatry Transplant at [facility] [address] [facility] [address] [place] [phone] Craig Warren PsyD [address] [facility] [address] [place] [address] PTSD (post-traumatic stress disorder) (Primary [...] Recorded In the past 12 months has [employer], gas, oil, or water company threatened to [...] any time in the past 12 m [facility], were you homeless or living in a fdc (including now)? No 09/05/2024 Yearly Questionnaire Answer [...] The following assessment was informed by the [place] Integrated Psychosocial Assessment for Transplant (SIP AT) and the SIPAT-General TXP Long Form ?? Tyler et al, 2008; Tyler et al, Psychosomatics 2012. Assessment Measures: Clinical Interview Patient Health Questionnaire -9 (PHQ-9) Generalized Anxiety Disorder-7 (MAGALYS-7) Timmy Cognitive Assessment (MoCA) [place] Integrated Psychosocial Assessment for Transplant (SIPAT) Patient [...] mother is and his father resides in [facility]. Patient earned a graduate degree and never served in the . 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 He was raised [employer] and denied current engagement in any community [...] elected toleave VIKAS and went directly to [facility] for care. Patient trusts his caregivers to [...] most recent in 2023. Given distance to [facility] (~ 1.25 - 1.5 hr) and [...] well as with an individual counselor, at [facility]. Alcohol use triggers identified as [...] PCP). Was established with Pain Management at [facility] under VALENTINE Rodriguez May 2024. Note [...] Description 12/05/2024 8:01 AM EDT Hospital Encounter [facility] ENDOSCOPY [address] [place] [address] Chris Orosco MD [address] [place] [phone] 12/05/2024 8:01 AM EDT - 12/05/2024 8:31 AM EDT Surgery [facility] ENDOSCOPY [address] [place] [address] Chris Orosco MD [address] [place] [address] EGD Scheduled Procedures Name Priority Associated Diagnoses [...]
--- OUTSIDE RECORDS SUMMARY | 2024-09-29 14:20 | XMS_ITS | Encounter Summary ---
Author Organization Healthcare Address [address] [place] [address] Care Team Providers Care Corporate Planner Name Role Phone [place], Lj Nova APRN Unavailable Enedina Mcguire APRN Primary Care Provider + Reason for Referral * Consultation (Routine) - Authorized Specialty Diagnoses / Procedures Referred By Shane t Referred To Contact Diagnoses NADIYA (acute kidney injury) (CMS/HCC) Portal hypertension (CMS/HCC) Secondary esophageal varices with bleeding (CMS/HCC) Yovanny Curran MD [address] [address] Phone: tel: fax: Referral ID Status Reason Start Date Expiration Date V isits Requested Visits Authorized [id number] Authorized 09/29/2024 03/31/2026 1 1 Reason for Visit * Reason Comments Follow-up Pt did not taken vit al sign Encounter Details Date Type Department Care Team ([facility] Contact Info) Description 09/29/2024 2:20 PM EDT Office Visit Professional [employer] [place] Nephrology, Bone & Mineral Metabolism [address] , [address] [place] [address] Yovanny Bob MD [address] [place] [address] NADIYA (acute kidney injury) (CMS/HCC) [...] answer 07/14/2024 How often do you attend [facility] or latter day services? Patient unable to answer 07/14/2024 Do you belong to any clubs o r organizations such as shinto groups, unions, fraternal or athletic groups, or [...] Recorded Patient Health Questionnaire-2 Score 2 09/29/2024 [facility] of Occupat ional [facility] - Occupational Stress Questionnaire Answer Date [...] place to sleep or slept in a prison (including now)? No 11/19/2023 PHQ-9 Answer Date [...] were you homeless or living in a prison (including now)? 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-HOUSE WIRER) to steady your nerves or to get rid of a hangover? 0 07/19/2024 CAGE Questionnaire Score 2 025 Utilities Answer Date Recorded In the past 12 months has th [employer], gas, oil, or water test company threatened to shut off services in [...] Patient confirms they are physically located in [place]? Yes If the patient is not physically located in [place], the provider has confirmed with [facility] thatthe provider is authorized to provide services in patient's stated location? N/A Provider Location: [facility] facility Audio and video or audio only? Audio and video Total visit time: 20 minutes HISTORY OF PRESENT ILLNESS Julien Anderson was seen in our clinic previously with/for Follow-up. As you know, patient is a 39 y.o. male who presents to the clinic today as follow up of his NADIYA. Most recently discharged on 09/09 from [facility]. Cr at time of discharge was 2.4. Cr most recently at [facility] was 3.0. On bicarb repletion. C/O [...] impressions, importance of compliance with treatment, and skilled nursing nature of condition. Education provided was verbal [...] Description 12/01/2024 2:20 PM EDT Office Visit [facility] Nephrology, Bone & Mineral Metabolism [address], [address] [place] [address] Yovanny Curran MD [address] [place] [address] 01/08/2025 3:20 PM EDT Office Visit [facility] [address] [place] [address] Vincent Braga MD [address] [place] [address] Scheduled Referrals Name Type Priority [...] as of this encounter Care Teams Corporate Planner Relationship Specialty Start Date End Date Enedina Mcguire APRN [address] [place] [address] [phone] PCP - General 12/04/22 Lj Tapia APRN [facility] [place] [address] Referring Physician Gastroenterology 07/18/22 documented as of this encounter
--- OUTSIDE RECORDS SUMMARY | 2024-10-05 23:12 | XMS_ITS | Encounter Summary ---
Author Organization [facility] Address [facility] [place] [address] Care Team Providers Care Telesales Representative Name Role Phone Enedina Mcguire NP Primary Care Provider [phone] Source Comments This information has been disclosed [...] release of HIV test results or diagnoses. [id number] Reason for Referral * Surgical (Routine) - New Request Specialty Diagnoses / Procedures Referred By Shane hernadez Referred To Contact Gastroenterology Diagnoses Alcoholic cirrhosis of liver with ascites (CMS-HCC) Procedures Case request GI: EGD Gerri Peterson MD [address] [place] [address] Phone: tel: fax: Referral ID Status Reason Start Date Expiration Date V isits Requested Visits Authorized [id number] New Request 10/08/2024 04/06/2025 1 1 Reason for Visit * Auth/Cert (Routine) Specialty Diagnoses / Procedures Referred By Shane hernadez Referred To Contact General Internal Medicine Diagnoses [facility] [address] [place] [address] Phone: tel: Referral ID Status Reason Start Date Expiration Date Visits Re quested Visits Authorized [id number] 1 1 Encounter Details Date Type Department Care Team (Latest Contact Info) Description 10/05/2024 11:12 PM EDT - 10/17/2024 10:29 AM EDT Hospital Encounter [facility] [address] [place] [id number] Angie Blanchard MD [address] [place], [place] [id number] Fouzia Rene MD [address] [place] [address] Med/[place] [address] Chelsy Lerner MD [address] [place] [address] [place] [address] Alcoholic cirrhosis of liver with [...] Recorded In the past 12 months has [facility], [employer], oil, or water 20lines threatened to shut off services in your [...] time in the past 12 m [facility], were you homeless or living in a penitentiary (including now)? No 10/06/2024 Yearly Questionnaire Answer [...] Kandy Fuentes - 10/17/2024 10:29 AM EDT [facility] Care Management Discharge Summary Patient name: Julien [...] Home post discharge: Not Applicable Kandy [facility] [phone] documented in this encounter Discharge Instructions * [...] or concerns Thank you, Internal Medicine Team (Kinsey team) Future Appointments Date Time Provider Department [...] 30 tablet 09/09/2024 3:56 PM EDT 09/10/2024 FLUoxetine (PROZAC) 20 MG capsule Take 1 capsule (20 mg total) by mouth daily. 30 capsule 2 10/17/2024 10:24 AM EDT 10/17/2024 folic acid (FOLVITE) 1 MG tablet Take 1 tablet (1 mg total) by mouth daily. lactulose (CHRONULAC) 10 gram/15 mL solution Take 30 mLs (20 g total) by mouth 3 times a day. 946 mL 10/17/2024 10:24 AM EDT 10/17/2024 loratadine (CLARITIN) 10 mg tablet Take 1 tablet (10 mg total) by mouth daily as needed for Allergies (itching). 30 tablet 10/17/2024 10:24 AM EDT 10/17/2024 methocarbamoL (ROBAXIN) 500 MG tablet Take 1 tablet (500 mg total) by mouth 3 times a day. 90 tablet 10/17/2024 10:24 AM EDT 10/17/2024 midodrine (PROAMATINE) 10 MG tablet Take 1 tablet (10 mg total) by mouth 3 times a day. 90 tablet 10/17/2024 10:24 AM EDT 10/17/2024 naloxone (NARCAN) 4 mg/actuation [place] Apply 1 spray in one nostril if needed. Call 911. May repeat dose in other nostril if no response in 3 minutes. 2 each 1 10/17/2024 10:25 AM EDT 10/17/2024 oxyCODONE (ROXICODONE) 5 MG immediate release tabletIndications :Pain Take 1 tablet (5 mg total) by mouth every 6 hours as needed for up to 3 days. 12 tablet 10/17/2024 10:24 AM EDT 10/17/2024 potassium chloride (KLOR-CON M20) 20 MEQ tabletIndications [...] 60 capsule 09/09/2024 3:56 PM EDT 09/09/2024 documented as of this encounter Progress Notes * Soco Milton RN - 10/17/2024 6:35 [...] remains <30 until October 22. Waiting for C today. ASSESSMENT NADIYA on CKD, last discharge [...] Staff. Jeremiah Gamino PGY4 Nephrology. Pager no. [phone] Chief Complaint No chief complaint on file. [...] at 10/08/2024 1:12 PM EDT US Duplex Iqb-Wmm-Pqsfpvc Comp Final Result IMPRESSION: ABDOMEN 1. Cirrhotic [...] no head imaging has been performed at [facility]. -CT Head w/o contrast -Imaging showed [...] Select Supplement: Boost-1 kcal/ml supplement ([facility] only) Code Status: Full Code Signed: WILLIAM BLOUNT MD 10/16/2024, 2:16 PM Cosigned by Chelsy Lerner MD at 10/16/2024 5:38 PM EDT Associated attestation - Chelsy Lerner MD - 10/16/2024 5:38 PM EDT Hospital Medicine Attending Supervision Note [...] another specialty or practice, other licensed professional (PT/OT/HARDWARE SALES ASSISTANT/RT), or a non-medical community professional: Hepatology, Interventional [...] due to positioning during LHC on 10/14. [place] the worst in CVR, but has improved [...] Internal Medicine 10/16/2024 5:36 PM * Lorena Kumar RD - 10/16/2024 1:08 PM EDT [facility] Medical Nutrition Therapy Follow-Up Diet Order/Nutrition Support: Regular diet, Boost TID - Vanilla preference Pertinent Information: This is a 39 year old male history of ETOH cirrhosis d/b HE, ascites with SBP who is admitted for AMS. Precipitant of his HE likely SBP. Diagnostic paracentesis at OSH reportedly showed 61 nucleated cells, <2000 RBCs 10% Polynuclear, 90% Mcdonough nuc. There were initial reports of gram [...] Based on CBW of 119.5 kg Kcals/day: 8785-0456 (18-21 kcals/kg) Protein g/day: 119-143 (1-1.2 g/kg) [...] Kumar RD, LD Clinical Dietitian Contact via [employer] * Jeremiah Gamino MD - 10/15/2024 1:03 [...] remains <30 until October 22. Waiting for [facility] today. ASSESSMENT NADIYA on CKD, last [...] COMMENT on 10/08/2024 Iron%- Iron replete PLAN -[facility] yesterday- patient remains at risk of contrast related injury on top of exisiting NADIYA for 24-48 hrs after contrast load. -He is volume overloaded -patient needs to follow up closely with nephrology after discharge Thank you for allowing us to participate in this patient's care. Discussed with Consult Staff. Jeremiah Gamino PGY4 Nephrology. Pager no. [phone] Chief Complaint No chief complaint on file. [...] Hypertension, Other hyperlipidemia (07/26/2024), Renal cell carcinoma ([facility]), Thrombocytopenia ([facility]), and Thyroid disease. he has a past [...] at 10/08/2024 1:12 PM EDT US Duplex Oge-Oak-Bxpqmwc Comp Final Result IMPRESSION: ABDOMEN 1. Cirrhotic [...] from ascites fluid. - Ammonia level 10/06: within normal range - Ethanol level, Tylenol [...] no head imaging has been performed at [facility]. -CT Head w/o contrast -Imaging showed [...] Select Supplement: Boost-1 kcal/ml supplement ([facility] only) Code Status: Full Code Signed: [...] another specialty or practice, other licensed professional (PT/OT/HARDWARE SALES ASSISTANT/RT), or a non-medical community professional: Hepatology, Interventional [...] due to positioning during LHC on 10/14. [place] the worst in CVR, but has improved [...] of Internal Medicine 10/15/2024 2:36 PM * Mani Quan MD - 10/14/2024 2:34 PM EDT [facility] Department of Cardiovascular Health and Diseases Cardiology [...] remains <30 until October 22. Waiting for [facility] today. ASSESSMENT NADIYA on CKD, last discharge creatinine 2.4 Baseline Creatinine 1.2-1.3, HRS- NADIYA as no response to holding lasix and albumin UA bland Urine lytes <10/< 15/ 50 Holding lasix give LHC today Renal Function: Recent Labs 10/14/24 0253 [...] COMMENT on 10/08/2024 Iron%- Iron replete PLAN -C today -pt is volume up slightly -standing weights daily -c.w sodium bicarb tablets -discssed with the patient anad family about risk of needing HD after LHC Thank you for allowing us to participate in this patient's care. Discussed with Consult Staff. Jeremiah Gamino PGY4 Nephrology. Pager no. [phone] Chief Complaint No chief complaint on file. [...] at 10/08/2024 1:12 PM EDT US Duplex Myv-Edt-Rhftknw Comp Final Result IMPRESSION: ABDOMEN 1. Cirrhotic [...] no head imaging has been performed at [facility]. -CT Head w/o contrast -Imaging showed [...] never required dialysis. Patient is going for [facility] today and will receive contrast, okay [...] Select Supplement: Boost-1 kcal/ml supplement ([facility] only) Code Status: Full Code Signed: WILLIAM BLOUNT MD 10/14/2024, 10:26 AM Cosigned by Chelsy Lerner MD at 10/14/2024 11:53 AM EDT Associated attestation - Chelsy Lerner MD - 10/14/2024 11:53 AM EDT Hospital Medicine Attending Supervision Note Julien [...] another specialty or practice, other licensed professional (PT/OT/HARDWARE SALES ASSISTANT/RT), or a non-medical community professional: Hepatology, Interventional [...] of Internal Medicine 10/14/2024 11:34 AM * Jeremiah Gamino MD - 10/13/2024 3:30 [...] Staff. Jeremiah Gamino PGY4 Nephrology. Pager no. [phone] Chief Complaint No chief complaint on file. [...] evaluation and management for this patient. * Rebekah Linares, [facility] - 10/13/2024 12:30 PM EDT Start Time: [...] no psychomotor abnormalities Cognition: short term and correction memory intact Attitude: cooperative Affect: full range [...] Fabian, RD - 10/13/2024 10:49 AM EDT [facility] Medical Nutrition Therapy Reason(s) for Completion: [...] Select Supplement: Boost-1 kcal/ml supplement ([facility] only) Pertinent Information: Julien Gilbert is [...] Weight: please obtain Pertinent Labs: Recent Labs 10/11/2430110/12/24 0544 10/13/24 0535 WBC 4.0 3.3* 4.7 HGB [...] kg) Body mass index is 32.07 kg/m??. [place] Body Weight: 202 lbs (91.8 kg) +/- 10% Weight History: Wt Readings from Last 10 Encounters: 10/10/24 (!) 263 lb 8 oz (119.5 kg) 09/05/24 (!) 262 lb 9.6 oz (119.1 kg) 09/02/24 (!) 258 lb (117 kg) 08/17/24 (!) 242 lb 11.2 oz (110.1 kg) 07/28/24 (!) 245 lb (111.1 kg) Estimated Nutrition Needs: Based on CBW of 119.5 kg Kcals/day: 6318-7048 (18-21 kcals/kg) Protein g/day: 119-143 (1-1-2 g/kg) [...] Dietitian - Solid Organ Transplant Contact via [employer] Chat * Eileen Schrodeer MD, PhD - 10/13/2024 8:19 AM EDT [...] 8L of fluid were removed Going for C today Review of Systems (Focused) Negative except [...] at 10/08/2024 1:12 PM EDT US Duplex Cmn-Ptq-Cfyesiu Comp Final Result IMPRESSION: ABDOMEN 1. Cirrhotic [...] no head imaging has been performed at [facility]. -CT Head w/o contrast -Imaging showed [...] Select Supplement: Boost-1 kcal/ml supplement ([facility] only) Code Status: Full Code Signed: [...] I reviewed the documentation by the medical senior stereo compiler team lead and agree as documented. Any additions or clarifications are listed below. Daily plan was discussed with patient at bedside and questions addressed. Patient ID: Julien Gilbert is a 39 y.o. male currently admitted for Acute kidney injury superimposed on CKD (CMS-HCC) Supplemental History/ ROS: No acute events overnight A little frustrated with timing of LHC scheduled for today. Otherwise feels more awake [...] for Acute kidney injury superimposed on CKD ([facility]-H[facility]) Active Problems: NADIYA (acute kidney injury) on CKD ([facility]-H[facility]): Hepatorenal syndrome. Appreciate nephrology consult. S/p albumin X3. Baseline creatinine presumed to be around 2.5. Creatinine now seems to be fluctuating between 2.5-2.9 which may be his new baseline. We will continue to monitor. Spontaneous Bacterial Peritonitis ([facility]-HCC): Received 4 days of vancomycin, Ceftriaxone x 5d. Recent therapeutic paracentesis shows resolution. Continue Cipro prophylaxis Anemia: Multiple contributors. S/p 1 unit PRBC. Hemoglobin responded appropriately and remained stable. Will continue to monitor. Metabolic encephalopathy: Resolved. Likely related to combination of hepatic, metabolic, and possibly infectious insults. - Continue home lactulose and rifaximin Decompensated cirrhosis ([facility]-HCC): Appreciate hepatology consult. He has started [...] was non-diagnostic due to hypotension. Plan for [facility] today, but now moved to tomorrow. [...] medically ready. Consider d/c home after LHC tomorrow. FOUZIA RENE MD Attending Physician Department of Internal Medicine 10/13/2024 Medical Decision Making: // LEVEL 2 MOD One chronic illness with exacerbation, progression, or side effects of treatment Discussed with physician/SAWYER from another specialty or practice, other licensed professional (PT/OT/HARDWARE SALES ASSISTANT/RT), or a non-medical community professional: Nephrology, Hepatology [...] 7.2 / 3.3 \ / 30 / / 19.7 \ Differential 09/16/2024 N 84.2 [...] at 10/08/2024 1:12 PM EDT US Duplex Rcr-Lbc-Kdnzehl Comp Final Result IMPRESSION: ABDOMEN 1. Cirrhotic [...] no head imaging has been performed at [facility]. -CT Head w/o contrast -Imaging showed [...] Select Supplement: Boost-1 kcal/ml supplement ([facility] only) Code Status: Full Code Signed: [...] I reviewed the documentation by the medical senior stereo compiler team lead and agree as documented. Any additions or clarifications are listed below. Daily plan was discussed with patient at bedside and questions addressed. Patient ID: Julien Gilbert is a 39 y.o. male currently admitted for Acute kidney injury superimposed on CKD ([facility]-H[facility]) Supplemental History/ ROS: No acute events [...] non-diagnostic due to hypotension. Plan for LHC tomorrow. - EGD completed. - Imaging requiring [...] another specialty or practice, other licensed professional (PT/OT/HARDWARE SALES ASSISTANT/RT), or a non-medical community professional: Nephrology, Hepatology [...] tid. cardiac workup pre txp. pLan for [facility] Sunday Liver transplant workup per GI/ [...] concern for hepatorenal syndrome.` Patient came from [facility], paracentesis was performed yesterday on 10/05? [...] appropriately Laboratory Data and Imaging Recent Labs 10/10/2452210/11/2430110/12/24 0544 WBC 5.1 4.0 3.3* HGB 7.3* 7.7* 7.2* HCT 20.6* 21.2* 19.7* MCV 101.2* 100.5* 101.2* PLT 39* 32* 30* Recent Labs 10/10/2452210/11/24 03010/12/24 0544 NA 135 134 135 K 3.6 3.6 3.7 CL 108 108 109 CO2 17* 16* 17* BUN 53* 49* 52* CREATININE 2.85* 2.77* 2.94* GLUCOSE 113* 112* 121* CALCIUM 9.0 8.9 8.5* MG 1.9 2.0 1.9 PHOS 3.3 3.5 4.6 ANIONGAP 10 10 9 ALBUMIN 3.3* 3.3* 3.3* 3.3* 3.1* 3.1* Recent Labs 10/10/2452210/11/2430110/12/24 0544 CALCIUM 9.0 8.9 8.5* PHOS 3.3 3.5 4.6 Lab Results Component Value Date IRON 81 10/08/2024 TIBC SEE COMMENT 10/08/2024 FERRITIN 706.9 (H) 10/08/2024 No results found for: [id number] , FOLATE Lab Results Component Value Date [...] CRUR No results found for: MICROALBUR , [id number] In addition to the above an extensive [...] 4.6 10/12/2024 Lab Results Component Value Date CCLJ21X 7.1 (L) 10/08/2024 PLAN Monitor renal panel [...] 5:44 AM Colten Huertas MD, KISHOR LIN, PETE leadership development instructor Div. of Nephrology [facility] E-mail: [email or web address] This note was completely edited, [...] Rene MD Interval hx No issues. Pending [facility]. Assessment: Renal Function: Cr: 2.77 Bun: [...] tid. cardiac workup pre txp. pLan for LHC Sunday 4. Liver transplant workup per GI/ [...] concern for hepatorenal syndrome.` Patient came from [facility], paracentesis was performed yesterday on 10/05? [...] 706.9 (H) 10/08/2024 No results found for: GFQESURB98 , FOLATE Lab Results Component Value Date [...] CRUR No results found for: MICROALBUR , [id number] In addition to the above an extensive [...] 3.5 10/11/2024 Lab Results Component Value Date KWTY14C 7.1 (L) 10/08/2024 PLAN Monitor renal panel [...] 3:02 AM Colten Huertas MD, KISHOR LIN, FNKF leadership development instructor Div. of Nephrology [facility] E-mail: [email or web address] This note was completely edited, [...] is Acute kidney injury superimposed on CKD ([facility]-H[facility]). NAEON Pt felt much better today. [...] / 39 \ / 20 / \ / 88 \ PT/INR/PTT - 10/11/2024 PT 26.8 INR [...] at 10/08/2024 1:12 PM EDT US Duplex Keb-Avo-Zjqmiso Comp Final Result IMPRESSION: ABDOMEN 1. Cirrhotic [...] from outside facility. Will engage with them daily([phone]. Ask to speak to a tech) about [...] no head imaging has been performed at [facility]. -CT Head w/o contrast -Imaging showed [...] Number of Occurrences: Until Specified Order Comments: Naomi boost Order Questions: Select Supplement: Boost-1 kcal/ml supplement ([facility] only) Code Status: Full Code Signed: [...] I reviewed the documentation by the medical senior stereo compiler team lead and agree as documented. Any additions or clarifications are listed below. Daily plan was discussed with patient at bedside and questions addressed. Patient ID: Julien Gilbert is a 39 y.o. male currently admitted for Acute kidney injury superimposed on CKD ([facility]) Supplemental History/ ROS: No acute events [...] for Acute kidney injury superimposed on CKD ([facility]) Active Problems: Spontaneous Bacterial Peritonitis (CMS-HCC): [...] another specialty or practice, other licensed professional (PT/OT/HARDWARE SALES ASSISTANT/RT), or a non-medical community professional: Nephrology, Hepatology, [...] Strictly monitor urine output No Indication for INFORMATICA ARCHITECT 3. Not a candidate for terlipressin [...] Ignacio Queen MD Renal Fellow Pager # [phone] Chief Complaint No chief complaint on file. [...] concern for hepatorenal syndrome.` Patient came from [facility], paracentesis was performed yesterday on 10/05? [...] PHOS -- < > 3.5 3.4 3.3 RQMS04V 7.1* -- -- -- -- < > = values in this interval not displayed. Lab Results Component Value Date IRON 81 10/08/2024 TIBC SEE COMMENT 10/08/2024 FERRITIN 706.9 (H) 10/08/2024 No results found for: [id number] , FOLATE Lab Results Component Value Date [...] CRUR No results found for: MICROALBUR , [id number] In addition to the above an extensive [...] 3.3 10/10/2024 Lab Results Component Value Date JNGW16O 7.1 (L) 10/08/2024 PLAN Continue IV albumin [...] AM Colten Huertas MD, KISHOR LIN FNKF leadership development instructor Div. of Nephrology [facility] E-mail: [email or web address] This note was completely edited, [...] pt while pt is at [facility]. * Jodi Ortiz PharmD - 10/10/2024 10:27 AM EDT Clinical Pharmacy Service: Vancomycin Consult Progress Note Patient has been transitioned off of vancomycin therapy per team notes and orders. Pharmacy will sign-off at this time, please do not hesitate to consult again as needs arise. Thank you for involving pharmacy in the care of this patient. Jodi Ortiz PharmD Clinical Stitcher Hand, Internal Medicine Preferred contact: [employer] [facility] Hlyjyeg-Zm-Npfy Pager: [phone] October 10, 2024 10:27 AM Laboratory Data [...] 10/07/2024 10:50 PM Giardia Cryptosporidium Antigens Final [id number] 10/07/2024 10:50 PM Ova and Parasite Comprehensive w/ Giardia/Crypto Final [id number] Feces 10/06/2024 1:04 AM #2 Blood culture-Peripheral site 2 Preliminary [id number] Peripheral 10/06/2024 1:04 AM #1 Blood culture-Peripheral site 1 Preliminary [id number] Peripheral Pharmacokinetics Lab Results (Last 7 days) Today 0523 Yesterday 0459 10/08 0536 Vanc Rdm 16.4 11.0 16.0 * Gerri Peterson MD - 10/10/2024 10:09 AM EDT [facility] HEPATOLOGY PROGRESS NOTE Name: Julien Gilbert CSN: [id number] Consulted by: Fouzia Rene MD Reason for [...] nucleated cells, <2000 RBCs 10% Polynuclear, 90% Mcdonough nuc. Per OSH reports, ascitic fluid cultures [...] to achieving target HR. -cardiology consult for [facility] on Sunday - Transplant nephrology following for [...] Hepatology Staff * Jodi Ortiz, PharmD - 10/10/2024 9:13 AM EDT Images from the original note were not included. [facility] Clinical Pharmacy Service: Vancomycin Monitoring Consult [...] in sodium chloride 0.9 % 250 mL Ctne0Qux (Completed) 1,500 mg Once 10/09/2024 10/09/2024 Admin Instructions: Contact pharmacy if there is a question/concern of whether vancomycin should begiven based on serum drug levels. Use Ukmk1Otp Adapter - Mix Thoroughly Before Administration Route: Intravenous vancomycin (VANCOCIN) 1,500 mg in sodium chloride 0.9 % 250 mL Jduq7Yin 1,500 mg Once 10/10/2024 10/11/2024 Admin Instructions: Contact pharmacy if there is a question/concern of whether vancomycin should begiven based on serum drug levels. Use Vxdr5Vvm Adapter - Mix Thoroughly Before Administration Route: [...] in sodium chloride 0.9 % 250 mL Bzlh8Ndh 1,500 mg 166.7 mL/hr 10/08/24 1259 New Bag vancomycin (VANCOCIN) 1,000 mg in sodium chloride 0.9 % 250 mL Vauq5Utb 1,000 mg 250 mL/hr --Objective Data-- Vitals: [...] 53 53 54 Creatinine 2.85 2.89 3.04 [place]erry body weight: 86.8 kg (191 lb 5.7 oz) Adjusted ideal body weight: 99.9 kg (220 lb 3.5 oz) Estimated CrCl: ~35-45 mL/min --Cultures-- Microbiology Results Date and Time Order Name Sensitivity Status Organisms Specimen ID Source 10/07/2024 10:50 PM Giardia Cryptosporidium Antigens Final [id number] 10/07/2024 10:50 PM Ova and Parasite Comprehensive w/ Giardia/Crypto Final [id number] Feces 10/06/2024 1:04 AM #2 Blood culture-Peripheral site 2 Preliminary [id number] Peripheral 10/06/2024 1:04 AM #1 Blood culture-Peripheral site 1 Preliminary [id number] Peripheral --Vancomycin Concentrations-- Lab Results (Last 7 [...] for the consult. Jodi Ortiz PharmD Clinical Stitcher Hand, Internal Medicine Preferred contact: [employer] [facility] Fvzxvqk-Ww-Ovlm Pager: [phone] October 10, 2024 9:13 AM * Eileen Schroeder MD, PhD - 10/10/2024 8:17 AM EDT Department of Internal Medicine Daily Progress Note Chief Complaint / Reason for Follow-Up Julien Gilbert is a 39 y.o. male on hospital day 5. The principal reason for today's follow up visit is Acute kidney injury superimposed on CKD (CMS-HCC). DREW Pt was very conversational today. A&O x [...] at 10/08/2024 1:12 PM EDT US Duplex Zyz-Qwt-Gcqasip Comp Final Result IMPRESSION: ABDOMEN 1. Cirrhotic [...] from outside facility. Will engage with them daily([phone]. Ask to speak to a [employer]) about culture data updates. #Aphasia Patient appears [...] no head imaging has been performed at [facility]. -CT Head w/o contrast -Imaging showed [...] Select Supplement: Boost-1 kcal/ml supplement ([facility] only) Code Status: Full Code Signed: [...] I reviewed the documentation by the medical senior stereo compiler team lead and agree as documented. Any additions or clarifications are listed below. Daily plan was discussed with patient at bedside and questions addressed. Patient ID: Julien Gilbert is a 39 y.o. male currently admitted for Acute kidney injury superimposed on CKD ([facility]) Supplemental History/ ROS: No acute events overnight [...] for Acute kidney injury superimposed on CKD ([facility]) Active Problems: Spontaneous Bacterial Peritonitis ([facility]): Cultures from OSH were reported as growing [...] another specialty or practice, other licensed professional (PT/OT/HARDWARE SALES ASSISTANT/RT), or a non-medical community professional: Nephrology, Hepatology, [...] Strictly monitor urine output No Indication for INFORMATICA ARCHITECT Not a candidate for terlipressin per liver due to HE, liver and kidney failure, on midodrine tid. Considering para today, cardiac workup pre txp Liver transplant workup per GI/ Primary team, considering for SLK, seen by renal transplant team Thank you for allowing us to participate in this patient's care. Discussed with Consult Staff. Ignacio Queen MD Renal Fellow Pager # [phone] Chief Complaint No chief complaint on file. [...] concern for hepatorenal syndrome.` Patient came from [facility], paracentesis was performed yesterday on 10/05? [...] 9.0 9.3 PHOS -- 3.5 3.5 3.4 [id number] 7.1* -- -- -- Lab Results Component Value Date IRON 81 10/08/2024 TIBC SEE COMMENT 10/08/2024 FERRITIN 706.9 (H) 10/08/2024 No results found for: WEOHOULR55 , FOLATE Lab Results Component Value Date [...] CRUR No results found for: MICROALBUR , [id number] In addition to the above an extensive [...] 3.4 10/09/2024 Lab Results Component Value Date QAQB46T 7.1 (L) 10/08/2024 PLAN Continue IV albumin Monitor renal panel No indication for dialysis Pt seen by Santhosh meza for SLK assessment -not a candidate for [...] PM Colten Huertas MD, KISHOR LIN FNKF leadership development instructor Div. of Nephrology [facility] E-mail: [email or web address] This note was completely edited, [...] Peterson MD - 10/09/2024 1:07 PM EDT [facility] HEPATOLOGY PROGRESS NOTE Name: Julien Gilbert CSN: [id number] Consulted by: Fouzia Rene MD Reason for [...] nucleated cells, <2000 RBCs 10% Polynuclear, 90% Mcdonough nuc. Fluid cultures reportedly grew gram + [...] transplant evaluation. Pre-transplant evaluation ongoing. -Scheduled for VERONA to day at 3pm - transplant nephrology [...] Hepatology Staff * Jodi Ortiz PharmD - 10/09/2024 8:29 AM EDT Images from the original note were not included. [facility] Clinical Pharmacy Service: Vancomycin Monitoring Consult Julien Justin is a 39 y.o. male currently being [...] in sodium chloride 0.9 % 250 mL Zqkm4Yqh (Completed) 1,000 mg Once 10/08/2024 10/08/2024 Admin Instructions: Contact pharmacy if there is a question/concern of whether vancomycin should begiven based on serum drug levels. Use Exeu1Bfx Adapter - Mix Thoroughly Before Administration Route: Intravenous vancomycin (VANCOCIN) 1,500 mg in sodium chloride 0.9 % 250 mL Hfjw1Kpa 1,500 mg Once 10/09/2024 10/10/2024 Admin Instructions: Contact pharmacy if there is a question/concern of whether vancomycin should begiven based on serum drug levels. Use Kjfi3Chg Adapter - Mix Thoroughly Before Administration Route: [...] in sodium chloride 0.9 % 250 mL Kpyf4Rby 1,000 mg 250 mL/hr 10/06/24 1413 New [...] 10/07/2024 10:50 PM Giardia Cryptosporidium Antigens Final [id number] 10/07/2024 10:50 PM Ova and Parasite Comprehensive w/ Giardia/Crypto Final [id number] Feces 10/06/2024 1:04 AM #2 Blood culture-Peripheral site 2 Preliminary [id number] Peripheral 10/06/2024 1:04 AM #1 Blood culture-Peripheral site 1 Preliminary [id number] Peripheral --Vancomycin Concentrations-- Lab Results (Last 7 [...] for the consult. Jodi Ortiz PharmD Clinical Stitcher Hand, Internal Medicine Preferred contact: [employer] [facility] Hfefjln-Cv-Vbhh Pager: [phone] October 09, 2024 8:29 AM * Eileen Schroeder MD, PhD - 10/09/2024 8:00 AM EDT Department of Internal Medicine Daily Progress Note Chief Complaint / Reason for Follow-Up Julien Gilbert is a 39 y.o. male on hospital day 4. The principal reason for today's follow up visit is Acute kidney injury superimposed on CKD ([facility]-HCC). KARENEON and father at bedside Pt fully [...] at 10/08/2024 1:12 PM EDT US Duplex Sfp-Owe-Nvkrzwb Comp Final Result IMPRESSION: ABDOMEN 1. Cirrhotic [...] from outside facility. Will engage with them daily([phone]. Ask to speak to a tech) about [...] no head imaging has been performed at [facility]. -CT Head w/o contrast -Imaging showed [...] Select Supplement: Boost-1 kcal/ml supplement ([facility] only) Code Status: Full Code Signed: [...] I reviewed the documentation by the medical senior stereo compiler team lead and agree as documented. Any additions or clarifications are listed below. Daily plan was discussed with patient at bedside and questions addressed. Patient ID: Julien Gilbert is a 39 y.o. male currently admitted for Acute kidney injury superimposed on CKD ([facility]) Supplemental History/ ROS: No acute [...] for Acute kidney injury superimposed on CKD ([facility]-HCC) Active Problems: Anemia: S/p 1 unit PRBC from yesterday. Hemoglobin responded appropriately and remained stable. Will continue to monitor. Metabolic encephalopathy: Mostly resolved. Likely related to combination of hepatic, metabolic, andpossibly infectious insults. - Continue home lactulose and rifaximin Spontaneous Bacterial Peritonitis ([facility]-HCC): Cultures from OSH are growing gram- positive organisms.We continue to await speciation. He remains afebrile and vital signs have been stable. - Continue vancomycin and ceftriaxone for now. - Will follow-up on speciation and sensitivities. Decompensated cirrhosis ([facility]-HCC): Appreciate hepatology consult. He has started his transplant evaluation and will continue while inpatient. - MELD labs daily - Continue home regimen with ursodiol, rifaximin and lactulose - Start midodrine 3 times daily - EGD postponed until tomorrow -Planning for stress test today - Due for therapeutic paracentesis in the next day or so. NADIYA (acute kidney injury) on CKD ([facility]-HCC): Appreciate nephrology consult. Likely due to hepatorenal [...] another specialty or practice, other licensed professional (PT/OT/HARDWARE SALES ASSISTANT/RT), or a non-medical community professional: Nephrology, Hepatology Labs reviewed (1 pt each): CBC, CMP, INR & other daily labs Review of notes from a different specialty or different practice: Nephrology, Anesthesiology hepatology, * Gerri Peterson MD - 10/08/2024 1:40 PM EDT [facility] HEPATOLOGY PROGRESS NOTE Name: Julien Gilbert CSN: [id number] Consulted by: Fouzia Rene MD Reason for [...] hyperlipidemia 07/26/2024 Renal cell carcinoma (CMS-HCC) Thrombocytopenia ([facility]-HCC) Thyroid disease History reviewed. No pertinent surgical [...] nucleated cells, <2000 RBCs 10% Polynuclear, 90% Mcdonough nuc. Fluid cultures reportedly grew gram + [...] disease (ESRD) [facility] a [facility], or home setting. -At the time [...] aciduria Plan: At this time, Julien Gilbert Toan Jain MD potential candidate for a simultaneous [...] I have discussed this plan with the event promotions coordinator and the liver transplant team. Cosigned [...] admisson Aaron Gonzalez MD, FASN, MEd * Tani TroyD - 10/08/2024 9:13 AM EDT Images from the original note were not included. [facility] Clinical Pharmacy Service: Vancomycin Monitoring Consult [...] in sodium chloride 0.9 % 250 mL Ssvh8Xsp 1,000 mg Once 10/08/2024 10/09/2024 Admin Instructions: Contact pharmacy if there is a question/concern of whether vancomycin should begiven based on serum drug levels. Use Swlm5Abd Adapter - Mix Thoroughly Before Administration Route: [...] 10/07/2024 10:50 PM Giardia Cryptosporidium Antigens Final [id number] 10/07/2024 10:50 PM Ova and Parasite Comprehensive w/ Giardia/Crypto In process [id number] Feces 10/06/2024 1:04 AM #2 Blood culture-Peripheral site 2 Preliminary [id number] Peripheral 10/06/2024 1:04 AM #1 Blood culture-Peripheral site 1 Preliminary [id number] Peripheral --Vancomycin Concentrations-- Lab Results (Last 7 [...] for the consult. Jodi Ortiz PharmD Clinical Stitcher Hand, Internal Medicine Preferred contact: [employer] [facility] Xwzsqfm-Dl-Oxmx Pager: [phone] October 08, 2024 9:13 AM * Eileen [...] 10/07/2024 LFTs 10/08/2024 \ 7.7 / \ 4. / 34 \ / 16 / \ [...] FREET4 0.74 09/03/2024 Diagnostic Studies US Duplex Weg-Lfn-Elktpef Comp Final Result IMPRESSION: ABDOMEN 1. Cirrhotic [...] no head imaging has been performed at [facility]. -CT Head w/o contrast -Imaging showed [...] Select Supplement: Boost-1 kcal/ml supplement ([facility] only) Code Status: Full Code Signed: [...] I reviewed the documentation by the medical senior stereo compiler team lead and agree as documented. Any additions or [...] follow-up on speciation and sensitivities. Decompensated cirrhosis (CMS-HCC): Appreciate hepatology consult. He [...] tomorrow NADIYA (acute kidney injury) on CKD ([facility]-HCC): Appreciate nephrology consult. Likely has hepatorenal [...] Metabolic encephalopathy Active Problems: Decompensated cirrhosis (CMS-HCC) Acute kidney injury superimposed on CKD ([facility]-H[facility]) Thrombocytopenia ([facility]-H[facility]) Renal mass, left Metabolic acidosis with normal anion gap and bicarbonate losses GERD (gastroesophageal reflux disease) Anemia SBP (spontaneous bacterial peritonitis) ([facility]-HCC) Neck pain with history of cervical [...] another specialty or practice, other licensed professional (PT/OT/HARDWARE SALES ASSISTANT/RT), or a non-medical community professional: Nephrology, Hepatology Labs reviewed (1 pt each): CBC, CMP, INR & other daily labs Review of notes from a different specialty or different practice: Nephrology, Anesthesiology hepatology, * Ignacio Queen MD - 10/08/2024 8:05 AM EDT Images from the original note were not included. Department of Internal Medicine Nephrology & Hypertension Consult History & Physical Note Patient: Julien Gilbret Date of Admit: 10/05/2024 Referring physician: Fouzia [...] Strictly monitor urine output No Indication for INFORMATICA ARCHITECT Not a candidate for terlipressin per liver due to HE, liver ans kidney failure, on midodrine tid Liver transplant workup per GI/ Primary team, considering for SLK Thank you for allowing us to participate in this patient's care. Discussed with Consult Staff. Ignacio Queen MD Renal Fellow Pager # [phone] Chief Complaint No chief complaint on file. [...] concern for hepatorenal syndrome.` Patient came from [facility], paracentesis was performed yesterday on 10/05? [...] and Imaging Recent Labs 10/06/24 0737 10/07/24 0600 10/08/24 0536 WBC 5.6 3.3* 3.2* HGB 9.0* 7.4* 6.9* HCT 25.3* 21.5* 18.9* MCV 101.2* 104.1* 101.6* PLT 52* 35* 34* Recent Labs 10/06/24 0401 10/06/24 0737 10/07/24 0600 10/08/24 0536 NA 129* 129* 132* 135 K [...] TIBC , FERRITIN No results found for: [id number] , FOLATE Lab Results Component Value Date [...] <15 No results found for: MICROALBUR , [id number] In addition to the above an extensive [...] medical history of Alcoholic cirrhosis of liver ([facility]-HCC), Alcoholic hepatitis, Esophageal varices (CMS-HCC), Hepatorenal syndrome (CMS-HCC), Hypertension, Other hyperlipidemia (07/26/2024), Renal cell carcinoma (CMS-HCC), Thrombocytopenia (CMS-HCC), and Thyroid disease. who presents for NADIYA in the context of his liver disease My additional comments are as follow: Pt seen alert today Pts beside Non oliguric Scr marginal improvement FOCUSED PHYSICAL EXAM Vitals: 10/08/242145 BP: Pulse: 99 Resp: Temp: SpO2: 100% [...] 4.0 10/08/2024 Lab Results Component Value Date EXCT44B 7.1 (L) 10/08/2024 PLAN Continue IV albumin [...] 10/08/2024 5:36 AM Colten Huertas MD, KISHOR LIN, CATHYF leadership development instructor Div. of Nephrology [facility] E-mail: [email or web address] This note was completely edited, [...] from the original note were not included. [facility] Clinical Pharmacy Service: Vancomycin Monitoring Consult [...] AM #2 Blood culture-Peripheral site 2 Preliminary [id number] Peripheral 10/06/2024 1:04 AM #1 Blood culture-Peripheral site 1 Preliminary [id number] Peripheral --Vancomycin Concentrations-- Lab Results (Last 7 [...] for the consult. Jodi Ortiz PharmD Clinical Stitcher Hand, Internal Medicine Preferred contact: [employer] [facility] Yscdzpf-Ap-Bggw Pager: [phone] October 07, 2024 5:01 PM * Yamile Paige, PT - 10/07/2024 11:45 AM EDT Physical Therapy Initial Assessment and Discharge Name: Julien Gilbert : 1985 Attending Physician: Fouzia Rene MD Admission Diagnosis: AMS Date: 10/07/2024 Room: 8142/U81 Reviewed Pertinent hospital course: Yes Hospital Course [...] as needed upon discharge. Time Start Time: 942 Stop Time: 1000 Time Calculation (min): 17 [...] Peterson MD - 10/07/2024 11:33 AM EDT [facility] HEPATOLOGY PROGRESS NOTE Name: Julien Gilbert CSN: [id number] Consulted by: Fouzia Rene MD Reason for [...] nucleated cells, <2000 RBCs 10% Polynuclear, 90% Mcdonough nuc. Fluid cultures reportedly grewgram + rods. [...] liver selection meeting and clearance by social science analyst. Please order CT cardiac coronary evaluation, transplant [...] Strictly monitor urine output No Indication for INFORMATICA ARCHITECT Liver transplant workup per GI/ Primary team Thank you for allowing us to participate in this patient's care. Discussed with Consult Staff. Ingacio Queen MD Renal Fellow Pager # [phone] Chief Complaint No chief complaint on file. [...] concern for hepatorenal syndrome.` Patient came from [facility], paracentesis was performed yesterday on 10/05? [...] TIBC , FERRITIN No results found for: [id number] , FOLATE Lab Results Component Value Date [...] <15 No results found for: MICROALBUR , [id number] In addition to the above an extensive [...] PHOS 4.2 10/07/2024 No results found for: GFII57H PLAN Continue IV albumin Monitor renal panel [...] AM Colten Huertas MD, KISHOR LIN FNKF leadership development instructor Div. of Nephrology [facility] E-mail: [email or web address] * Carmen Bernal OT - 10/07/2024 11:09 AM EDT Occupational Therapy Initial Assessment and Discharge Name: Julien Gilbert : 1985 Attending Physician: Fouzia Rene MD Admission Diagnosis: AMS Date: 10/07/2024 Room: [address] [place] [address] Reviewed Pertinent hospital course: Yes Hospital Course [...] at 10/06/2024 2:33 AM EDT US Duplex Irt-Swi-Yhotyur Comp (Results Pending) US Abdomen Complete (Results [...] no head imaging has been performed at [facility]. -CT Head w/o contrast -Imaging showed [...] Select Supplement: Boost-1 kcal/ml supplement ([facility] only) Code Status: Full Code Signed: [...] I reviewed the documentation by the medical senior stereo compiler team lead and agree as documented. Any additions or [...] and mental status is improving. Decompensated cirrhosis (CMS-HCC): Appreciate hepatology consult. He has started his transplant evaluation as an outpatient. We will follow-up with hepatology to discuss any inpatient testing that may need to be needed. - MELD labs daily - Continue home regimen with ursodiol, rifaximin and lactulose NADIYA (acute kidney injury) ([facility]-HCC): Appreciate nephrology consult. Likely has hepatorenal [...] needed for pain. Continue to monitor. Thrombocytopenia ([facility]) Renal mass, left CKD (chronic kidney disease) stage 4, GFR 15-29 ml/min ([facility]) Metabolic acidosis with normal anion [...] another specialty or practice, other licensed professional (PT/OT/HARDWARE SALES ASSISTANT/RT), or a non-medical community professional: Nephrology, Hepatology Labs reviewed (1 pt each): CMP, CBC Test results reviewed (1 pt each): CXR, Head CT Review of notes from a different specialty or different practice: Nephrology, hepatology Use of parenteral controlled substances * Kiet Gardiner, PharmD - 10/06/2024 1:07 PM EDT Images from the original note were not included. [facility] Clinical Pharmacy Service: Vancomycin Monitoring Consult [...] Pulse: 98 95 95 101 Resp: 16 Temp: 97.6 ??F (36.4 ??C) 97.4 [...] AM #2 Blood culture-Peripheral site 2 Preliminary [id number] Peripheral 10/06/2024 1:04 AM #1 Blood culture-Peripheral site 1 Preliminary [id number] Peripheral --Vancomycin Concentrations-- Lab Results (Last 7 [...] US Retroperitoneal complete (Results Pending) US Duplex Tij-Rcx-Rwugzij Comp (Results Pending) CT Head WO contrast [...] PM EDT Hospital Medicine Attending Supervision Note [facility] Julien Gilbert was seen 10/06/24 on [...] Lerner MD - 10/05/2024 2:42 PM EDT [facility] - [facility] Department of Medicine TRANSFER CALL NOTE Location [facility] ED History of Present Illness [...] with plan to transfer to [facility] if needing admission. In the ED, [...] Studies: Na 129 K 4.2 Cl 101 Ihuxqq78 BUN 62 (up from baseline) Cr 3.6 [...] Quan MD - 10/14/2024 1:10 PM EDT [facility] PRE-SEDATION ASSESSMENT, HISTORY & PHYSICAL Date: [...] Neuro: AOx3 AUC For Cath Indication(s) for Wool Shearer Visit: Visit Indicators: Suspected CAD 2. Chest Pain Symptom Assessment: Asymptomatic 3. Heart Failure: Yes Class II 4. [facility] Clinical Frailty Scale: Mildly Frail Sedation Plan: Moderate Sedation with Local Anesthesia Antibiotic prophylaxis is not indicated. Mani Quan Interventional Skin Peeling Machine Operator Pager: [phone] [1] Patient Active Problem List Diagnosis Decompensated cirrhosis ([facility]-HCC) Acute kidney injury superimposed on CKD ([facility]) Alcohol use disorder Metabolic encephalopathy Hypertension Other hyperlipidemia Thrombocytopenia ([facility]-HCC) Renal mass, left Abdominal pain Hypokalemia CKD (chronic kidney disease) stage 4, GFR 15-29 ml/min ([facility]-H[facility]) Metabolic acidosis with normal anion gap and [...] Peterson MD - 10/10/2024 10:05 AM EDT [facility] PRE-SEDATION ASSESSMENT, HISTORY & PHYSICAL Date: [...] Patient Active Problem List Diagnosis Decompensated cirrhosis ([facility]-H[facility]) Acute kidney injury superimposed on CKD ([facility]) Alcohol use disorder Metabolic encephalopathy Hypertension Other hyperlipidemia Thrombocytopenia ([facility]) Renal mass, left Abdominal pain Hypokalemia CKD (chronic kidney disease) stage 4, GFR 15-29 ml/min ([facility]) Metabolic acidosis with normal anion gap and bicarbonate losses GERD (gastroesophageal reflux disease) Hypothyroidism Itching Anemia BRBPR (bright red blood per rectum) SBP (spontaneous bacterial peritonitis) ([facility]-HCC) C Diff Diarrhea C. difficile diarrhea Neck [...] Soto MD GI and Hepatology Staff * Neymar Ortiz MD - 10/06/2024 12:00 AM EDT [facility] Internal Medicine - History and Physical Chief [...] taken to Radiology overnight for imaging upload. [facility] performed a bedside paracentesis and sent studies for SBP analysis. Willcontact [facility] to see if labs have resulted. Review of Systems 14 pt ROS conducted and negative aside from that mentioned in above HPI Past Medical and Social History Lives in [place], [place] at bedside Notes that the patient [...] labs pending on admission to [facility] Assessment & Plan Julien Gilbert is [...] Blanchard MD - 10/06/2024 6:04 AM EDT [facility] Medicine Attending Supervision Note [facility] // [facility] Julien Gilbert was seen 10/06/24 on [...] confusion and lethargy. HE was seen at [facility] ED were CT head unremarkable and RUQ with gallstones, abdominal ascites diagnostic para done and started on empiric CTX. Labs remarkable at OSH for K 4.2 Cl 101 Gcyeqb07 BUN 62 (up from baseline) Cr 3.6 [...] another specialty or practice, other licensed professional (PT/OT/HARDWARE SALES ASSISTANT/RT), or a non-medical community professional: ed team [...] ANGIE BLANCHARD MD Attending Physician Division of [facility] Medicine Department of Internal Medicine Pager ID: [phone] 6:04 AM, 10/06/2024 documented in this encounter [...] & Interventional Radiology 10/10/2024,1:55 PM [facility]: [phone]) * Lino Soto MD - 10/10/2024 12:06 PM EDT EGD Brief Op Note Julien Gilbert 10/05/2024 - 10/10/2024 Pre-op Diagnosis: Alcoholic cirrhosis of liver with ascites (CMS-HCC) [K70.31] Post-op Diagnosis: Portal gastropathy, Medium size, non-bleeding esophageal varices Procedure(s): EGD Surgeon(s): Lino Soto MD Anesthesia: MAC (Monitor Anesthesia Care) Staff: Fellow: Gerri Peterson MD Endoscopy Nurse: Kandice Castaneda RN Butt Trimmer: Diana Kemp Estimated Blood Loss: Minimal Specimens: Drains: There were no complications unless listed below. LINO SOTO MD Date: 10/10/2024 Time: 12:18 PM * Lino Soto MD - 10/10/2024 11:48 AM EDT [id number] Procedure Date: 10/10/2024 11:48 AM Patient Name: Julien Gilbert Date of : 1985 Admit Type: Inpatient Age: 39 Gender: Male Note Status: Finalized Attending MD: Lino Soto MD, [id number] Procedure: Upper GI endoscopy Indications: Gastroesopahgeal variceal [...] verified by the physician, the nurse, the sensor operator and the supervisor sound technician in the pre-procedure area in the [...] to hypotension Procedure Code(s): --- Professional --- 92680, GC, Esophagogastroduodenoscopy, flexible, transoral; diagnostic, including collection of specimen(s) by brushing or washing, when performed (separate procedure) Diagnosis Code(s): --- Professional --- I85.00, Esophageal varices without bleeding K76.6, Portal hypertension K31.89, Other diseases of stomach and duodenum CPT copyright 2022 [employer]. All rights reserved. The codes documented in this report are preliminary and upon quarrying specialist review may be revised to meet current [...] In: 12:10:16 PM Scope Out: 12:17:[address] [place] [address], [facility] * Gill Le RN - 10/09/2024 [...] continue to follow at this time. 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 Describes significant anxiety that occasionally limits his ability to drive, and stated he has to door puller occasionally to collect himself, thought denied [...] need for sleep. Has not been on [facility] since stopping the cymbalta. [...] to his health decline. He was raised Rastafari and denied current engagement in any community [...] or other abnormalities Cognition/Memory: short term and intermission coordinator memory intact. Attention and concentration: is not [...] from the original note were not included. [facility] General Cardiology Consult Note Referring Physician: Fouzia [...] at baseline or with provocation, shows no mmixa-wq-iuuj atrial level shunt. - Pulmonary arteries: Systolic [...] 10/13/24, please keep NPO on 10/12/24 at [place] Risks and benefits of new therapies added and new invasive and non-invasive procedures/diagnostic testing planned discussed with and understood by the patient/family who agree with the above plan. Plan discussed with the attending physician Dr. Blanco. Recommendations are preliminary until this note is co- signed by the attending. Follow up appointments with Cardiology can be scheduled by calling [phone]. Thank you for the opportunity to participate in this patient's care. Please call orpage with any questions. Leonor Garcia MD Skin Peeling Machine Operator I have personally seen, examined, reviewed all [...] Date 10/10/24 1500 - 10/11/24 0659 10/11/24 07 - 10/12/24 0659 Shift [id number] 3543-0385 24 Hour Total 4021-5107 9446-3615 0734-2619 24 Hour Total INTAKE P.O. 3193 194 6923 P.O. 1423 158 9948 Boost (mL) - [facility] only 240 240 I.V.(mL/kg) 450(3.8) Volume [...] Other (See Comments) Became Manic * Bakari Callowayjaymie, SUPERINTENDENT STORAGE AREA - 10/10/2024 10:07 AM EDT Interventional Radiology [...] affect Labs: Recent Labs 10/08/24 1752 10/09/24 0459 10/10/24 [...] IR Please call with any questions. BAKARI WAHL, EZEKIEL Vascular & Interventional Radiology 10/10/2024,1:54 PM [facility]: [phone]) [1] Social History Tobacco Use Smoking Status [...] EDTAssociated Order(s): IP CONSULT TO INFECTIOUS DISEASES [facility] DEPARTMENT OF INFECTIOUS DISEASE INITIAL NOTE Referring Physician: Fouzia Rene MD Consult Attending: Daria Garcia Patient: Julien Gilbert CSN: [id number] Reason for Consult: CC: Abx management History [...] HE. He was born and raised in [facility] . No travel to [facility]. 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 [...] Resource Strain: Low Risk (07/09/2024) Received from [facility] Overall Financial Resource Strain (CARDIA) Difficulty of [...] No Physical Activity: Unknown (07/14/2024) Received from [facility] Exercise Vital Sign Days of Exercise per Week: Patient unable to answer Minutes of Exercise per Session: Not on file Stress: Patient Unable To Answer (07/14/2024) Received from [facility] [place] of Occupational Health - Occupational Stress Questionnaire Feeling of Stress : Patient unable to answer Social Connections: Patient Unable To Answer (07/14/2024) Received from [facility] Social Connection and Isolation Panel [NHANES] Frequency of Communication with Friends and Family: Patient unable to answer Frequency of Social Gatherings with Friends and Family: Patient unable to answer Attends Bahai Services: Patient unable to answer Active Member [...] day. Qty: 60 tablet, Refills: 0 Comments: [facility] [place] [address] sodium bicarbonate 650 MG tablet Take 2 [...] in this interval not displayed. Lab name 03/15/25 0038 08/13/24 0451 09/03/24 1028 10/06/24 1151 [...] Aphasia [R47.01] 10/06/2024 SBP (spontaneous bacterial peritonitis) ([facility]) [K65.2] 09/08/2024 Metabolic acidosis with normal anion gap and bicarbonate losses [E87.20] 09/03/2024 CKD (chronic kidney disease) stage 4, GFR 15-29 ml/min ([facility]) [N18.4] 09/03/2024 GERD (gastroesophageal reflux disease) [K21.9] 09/03/2024 Renal mass, left [N28.89] 08/18/2024 Thrombocytopenia ([facility]) [D69.6] Decompensated cirrhosis ([facility]) [K72.90, K74.60] 07/25/2024 NADIYA (acute kidney injury) ([facility]) [N17.9] 07/25/2024 Resolved Hospital Problems No resolved [...] Signed: Daria Garcia MD 10/08/2024, 9:46 AM [phone] [1] Allergies Allergen Reactions Adhesive Itching and [...] on 3 at the request of Dr. Domínguez torender an opinion on perioperative risk optimization and [...] Resource Strain: Low Risk (07/09/2024) Received from [facility] Overall Financial Resource Strain (CARDIA) Difficulty of [...] No Physical Activity: Unknown (07/14/2024) Received from [facility] Exercise Vital Sign Days of Exercise per Week: Patient unable to answer Minutes of Exercise per Session: Not on file Stress: Patient Unable To Answer (07/14/2024)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 10/15/2024 6:51 AM EDT [facility] Whole Blood 10/15/2024 6:08 AM EDT 10/15/2024 6:17 AM EDT us Eileen Schroeder MD, PhD LAB BLOOD ORDERABLES Final Result Performing Organization Address [facility]/ZIP Co de Phone Number [facility] [address] [place] [address], [facility] * PRA-HLA Ab Screen (Cytotoxic) (10/15/2024 6:08 AM EDT) Pathologist [facility] The request and specimen(s) for this test have been received and transported to the [facility] at [address] [place] [address]. The [facility] will report results directly to the client. 10/15/2024 6:42 AM EDT [facility] Comment:The request and spec imen(s) for this test have been received and transported to the [facility] at [address] [place] [address]. The [facility] will report results directly to the client. Serum 10/15/2024 6:08 AM EDT 10/15/2024 6:42 AM EDT us Cosmo Pacheco MD LAB BLOOD ORDERABLES Final Resul t Performing Organization Address City/[facility]/ZIP Co de Phone Number [facility] [address] [place] [address], [facility] * (ABNORMAL) Renal Function Panel w/EGFR (10/15/2024 6:08 AM EDT) Sodium 135 133 - 146 mmol/L 10/15/2024 6:45 AM EDT [facility] Potassium 3.4(L) 3.5 - 5.3 mmol/L 10/15/2024 6:45 AM EDT [facility] Chloride 107 98 - 110 mmol/L 10/15/2024 6:45 AM EDT [facility] CO2 17(L) 21 - 33 mmol/L 10/15/2024 6:45 AM EDT [facility] Anion Gap 11 3 - 16 mmol/L 10/15/2024 6:45 AM EDT [facility] BUN 55(H) 7 - 25 mg/dL 10/15/2024 6:45 AM EDT [facility] Creatinine 2.88(H) 0.60 - 1.30 mg/dL 10/15/2024 6:45 AM EDT [facility] Glucose 125(H) 70 - 100 mg/dL 10/15/2024 6:45 AM EDT [facility] Calcium 8.4(L) 8.6 - 10.3 mg/dL 10/15/2024 6:45 AM EDT [facility] Phosphorus 3.9 2.1 - 4.7 mg/dL 10/15/2024 6:45 AM EDT [facility] Albumin 3.2(L) 3.5 - 5.7 g/dL 10/15/2024 6:45 AM EDT [facility] Osmolality, Calculated 297 278 - 305 mOsm/kg 10/15/2024 6:45 AM EDT [facility] EGFR 27 10/15/2024 6:45 AM EDT [facility] Comment:As of 2021, the [...] MD, PhD LAB BLOOD ORDERABLES Final Result [facility] [address] [place] [address], [facility] * LEFT HEART CATH (10/14/2024 2:09 PM EDT) 10/14/2024 11:4 7 AM EDT Narrative [facility] - 10/14/2024 9:27 PM EDT *[facility]* Cardiac Wool Shearer [address] [place], [place] [address] CATHETERIZATION LAB STUDY Patient: Julien Gilbert Age: [...] manner. 3. Right radial artery access. A [id number] Glidesheath - Slender - .021 sheath was [...] + + !LV pressure s/d, ed !112, , dP/xa=1001yi Hg/s! + + + !Aortic pressure s/d (m)!106/58 (75) ! + + + ATTESTATION: Dr. Matta was present for the entire procedure. Dr. Jay Quan was the initial author of this report. Prepared and electronically signed by Irving Matta MD [id number] Procedure Note Irving Matta MD - 10/14/2024 *[facility]* Cardiac Wool Shearer [address] [place] [address] CATHETERIZATION LAB STUDY Patient: Julien Gilbert Age: [...] manner. 3. Right radial artery access. A [id number] Glidesheath - Slender - .021sheath was advanced [...] complications. Contrast: Omnipaque 350 25ml (total dose). [id number] 125ml (wasted). Radiation: Fluoroscopy time: 15min. Total [...] + + !LV pressure s/d, ed !112, 22, dP/ef=6706qi Hg/s! + + + !Aortic pressure s/d (m)!106/58 (75) ! + + + ATTESTATION: Dr. Matta was present for the entire procedure. Dr. Jay Quan wasthe initial author of this report. Prepared and electronically signed by Irving Matta MD [id number]:50 [place] [id number] Final Result Performing Organization Address [facility] Co de Phone Number [facility] * Transfuse Fresh Frozen Plasma Transfusion Rate: Per dept routine (10/14/2024 2:08 PM EDT) Eleazar Nguyễn MD NURSING TREATMENT ORDER PAL - BLOOD ADMIN Final Result Performing Organization Address [facility] Co de Phone Number EXTERNAL * Transfuse Fresh Frozen Plasma Transfusion Rate: Per dept routine, 1 Units (10/14/2024 2:08 PM EDT) Eleazar Nguyễn MD NURSING TREATMENT ORDER PAL - BLOOD ADMIN Final Result Performing Organization Address City/[facility]/ZIP Co de Phone Number EXTERNAL * Transfuse Platelets Transfusion Rate: Per dept routine (10/14/2024 12:43 PM EDT) Eleazar Nguyễn MD NURSING TREATMENT ORDER PAL - BLOOD ADMIN Final Result Performing Organization Address [facility] Co de Phone Number EXTERNAL * Transfuse Platelets Transfusion Rate: Per dept routine, 1 Units (10/14/2024 12:43 PM EDT) Eleazar Nguyễn MD NURSING TREATMENT ORDER PAL - BLOOD ADMIN Final Result EXTERNAL * Antibody Screen (10/14/2024 8:21 AM EDT) Antibody Screen Negative 10/14/2024 9:11 AM EDT [facility] Blood 10/14/2024 8:21 AM EDT 10/14/2024 8:33 AM EDT Narrative [facility] - 10/14/2024 9:26 AM EDT Testing performed by [facility] Transfusion Service Eleazar Nguyễn MD BLOOD BANK TEST ORDERAB LES Final Result Performing Organization Address City/[facility] Co de Phone Number [facility] [address] * ABO/Rh (10/14/2024 8:21 AM EDT) ABO Grouping O 10/14/2024 8:55 AM EDT [facility] Rh Type Positive 10/14/2024 8:55 AM EDT [facility] Blood 10/14/2024 8:21 AM EDT 10/14/2024 8:33 AM EDT Eleazar Nguyễn MD BLOOD BANK TEST ORDERAB LES Final Result Performing Organization Address City/[facility] Co de Phone Number [facility] [address] * (ABNORMAL) Protime-INR (10/14/2024 2:53 AM EDT) Protime 23.8(H) 12.1 - 15.1 seconds 10/14/2024 4:34 AM EDT [facility] INR 2.1(H) 0.9 - 1.1 10/14/2024 4:34 AM EDT [facility] Comment: RECOMMENDED THERAPEUTIC RANGES USING INR : Stable oral anticoagulant therapy: 2.0 - 3.0 Mechanical prosthetic heart valve: 2.5 - 3.5 Recurrent acute myocardial infarction: 2.5 - 3.5 Plasma 10/14/2024 2:53 AM EDT 10/14/2024 4:16 AM EDT Eileen Schroeder MD, PhD LAB BLOOD ORDERABLES Final Result Performing Organization Address [facility] Co de Phone Number [facility] [address] [facility] * (ABNORMAL) Hepatic Function Panel (10/14/2024 2:53 AM EDT) Total Bilirubin 7.2(H) 0.0 - 1.5 mg/dL 10/14/2024 4:45 AM EDT [facility] Bilirubin, Direct 3.86(H) 0.00 - 0.40 mg/dL 10/14/2024 4:45 AM EDT [facility] AST 41(H) 13 - 39 U/L 10/14/2024 4:45 AM EDT [facility] ALT 22 7 - 52 U/L 10/14/2024 4:45 AM EDT [facility] Alkaline Phosphatase 119 36 - 125 U/L 10/14/2024 4:45 AM EDT [facility] Total Protein 4.6(L) 6.4 - 8.9 g/dL 10/14/2024 4:45 AM EDT [facility] Albumin 3.3(L) 3.5 - 5.7 g/dL 10/14/2024 4:45 AM EDT [facility] Bilirubin, Indirect 3.34(H) 0.00 - 1.10 mg/dL 10/14/2024 4:45 AM EDT [facility] Plasma 10/14/2024 2:53 AM EDT 10/14/2024 4:16 AM EDT Eileen Schroeder MD, PhD LAB BLOOD ORDERABLES Final Result Performing Organization Address [facility]/ZIP Co de Phone Number [facility] [address] * Magnesium (10/14/2024 2:53 AM EDT) Magnesium 1.9 1.5 - 2.5 mg/dL 10/14/2024 4:45 AM EDT [facility] Plasma 10/14/2024 2:53 AM EDT 10/14/2024 4:16 AM EDT us Eileen Schroeder MD, PhD LAB BLOOD ORDERABLES Final Result [facility] [address] [place] [address], [facility] * (ABNORMAL) CBC (10/14/2024 2:53 AM EDT) WBC 5.5 3.8 - 10.8 10E3/uL 10/14/2024 5:00 AM EDT [facility] RBC 2.09(L) 4.20 - 5.80 10E6/uL 10/14/2024 5:00 AM EDT [facility] Hemoglobin 7.6(L) 13.2 - 17.1 g/dL 10/14/2024 5:00 AM EDT [facility] Hematocrit 21.3(L) 38.5 - 50.0 % 10/14/2024 5:00 AM EDT [facility] MCV 101.7(H) 80.0 - 100.0 fL 10/14/2024 5:00 AM EDT [facility] MCH 36.3(H) 27.0 - 33.0 pg 10/14/2024 5:00 AM EDT [facility] MCHC 35.7 32.0 - 36.0 g/dL 10/14/2024 5:00 AM EDT [facility] RDW 17.6(H) 11.0 - 15.0 % 10/14/2024 5:00 AM EDT [facility] Platelets 35(L) 140 - 400 10E3/uL 10/14/2024 5:00 AM EDT [facility] Comment: Specimen checked for clots. None detected. Slide Reviewed for PLT Clumps. None Seen. MPV 8.5 7.5 - 11.5 fL 10/14/2024 5:00 AM EDT [facility] Whole Blood 10/14/2024 2:53 AM EDT 10/14/2024 4:17 AM EDT us Eileen Schroeder MD, PhD LAB BLOOD ORDERABLES Final Result [facility] [address] [facility] [place] [address], [facility] * (ABNORMAL) Renal Function Panel w/EGFR (10/14/2024 2:53 AM EDT) Sodium 136 133 - 146 mmol/L 10/14/2024 4:45 AM EDT [facility] Potassium 3.5 3.5 - 5.3 mmol/L 10/14/2024 4:45 AM EDT [facility] Chloride 107 98 - 110 mmol/L 10/14/2024 4:45 AM EDT [facility] CO2 16(L) 21 - 33 mmol/L 10/14/2024 4:45 AM EDT [facility] Anion Gap 13 3 - 16 mmol/L 10/14/2024 4:45 AM EDT [facility] BUN 55(H) 7 - 25 mg/dL 10/14/2024 4:45 AM EDT [facility] Creatinine 3.01(H) 0.60 - 1.30 mg/dL 10/14/2024 4:45 AM EDT [facility] Glucose 95 70 - 100 mg/dL 10/14/2024 4:45 AM EDT [facility] Calcium 8.5(L) 8.6 - 10.3 mg/dL 10/14/2024 4:45 AM EDT [facility] Phosphorus 4.4 2.1 - 4.7 mg/dL 10/14/2024 4:45 AM EDT [facility] Albumin 3.3(L) 3.5 - 5.7 g/dL 10/14/2024 4:45 AM EDT [facility] Osmolality, Calculated 297 278 - 305 mOsm/kg 10/14/2024 4:45 AM EDT [facility] EGFR 26 10/14/2024 4:45 AM EDT [facility] Comment:As of 2021, the [...] [facility] Co de Phone Number [facility] [address] * Cardiac Cath Documents Scan (10/14/2024 [...] GADOBUTROL 1 MMOL/ML INTRAVENOUS SYRINGE ([facility]) administered intravenously COMPARISON: CT 09/03/2024. Ultrasound [...] GADOBUTROL 1 MMOL/ML INTRAVENOUS SYRINGE ([facility])administered intravenously COMPARISON: CT 09/03/2024. Ultrasound 10/07/2024. [...] BLOOD ORDERABLES Final Result [facility] [address] [place] [address], [facility] * (ABNORMAL) Hepatic Function Panel (10/13/2024 5:35 AM EDT) Total Bilirubin 6.5(H) 0.0 - 1.5 mg/dL 10/13/2024 6:30 AM EDT [facility] Bilirubin, Direct 3.53(H) 0.00 - 0.40 mg/dL 10/13/2024 6:30 AM EDT [facility] AST 42(H) 13 - 39 U/L 10/13/2024 6:30 AM EDT [facility] ALT 19 7 - 52 U/L 10/13/2024 6:30 AM EDT [facility] Alkaline Phosphatase 108 36 - 125 U/L 10/13/2024 6:30 AM EDT [facility] Total Protein 4.4(L) 6.4 - 8.9 g/dL 10/13/2024 6:30 AM EDT [facility] Albumin 3.1(L) 3.5 - 5.7 g/dL 10/13/2024 6:30 AM EDT [facility] Bilirubin, Indirect 2.97(H) 0.00 - 1.10 mg/dL 10/13/2024 6:30 AM EDT [facility] Plasma 10/13/2024 5:35 AM EDT 10/13/2024 5:52 AM EDT Eileen Schroeder MD, PhD LAB BLOOD ORDERABLES Final Result Performing Organization Address [facility]/ZIP Co de Phone Number [facility] [address] * Magnesium (10/13/2024 5:35 AM EDT) Magnesium 2.0 1.5 - 2.5 mg/dL 10/13/2024 6:30 AM EDT [facility] Plasma 10/13/2024 5:35 AM EDT 10/13/2024 5:52 AM EDT Eileen Schroeder MD, PhD LAB BLOOD ORDERABLES Final Result Performing Organization Address [facility] de Phone Number [facility] [address] * (ABNORMAL) CBC (10/13/2024 5:35 AM EDT) WBC 4.7 3.8 - 10.8 10E3/uL 10/13/2024 6:22 AM EDT [facility] RBC 2.06(L) 4.20 - 5.80 10E6/uL 10/13/2024 6:22 AM EDT [facility] Hemoglobin 7.4(L) 13.2 - 17.1 g/dL 10/13/2024 6:22 AM EDT [facility] Hematocrit 21.7(L) 38.5 - 50.0 % 10/13/2024 6:22 AM EDT [facility] MCV 105.4(H) 80.0 - 100.0 fL 10/13/2024 6:22 AM EDT [facility] MCH 35.9(H) 27.0 - 33.0 pg 10/13/2024 6:22 AM EDT [facility] MCHC 34.0 32.0 - 36.0 g/dL 10/13/2024 6:22 AM EDT [facility] RDW 18.5(H) 11.0 - 15.0 % 10/13/2024 6:22 AM EDT [facility] Platelets 35(L) 140 - 400 10E3/uL 10/13/2024 6:22 AM EDT [facility] Comment: CNV Specimen checked for clots. None detected. MPV 8.4 7.5 - 11.5 fL 10/13/2024 6:22 AM EDT [facility] Whole Blood 10/13/2024 5:35 AM EDT 10/13/2024 5:53 AM EDT Eileen Schroeder MD, PhD LAB BLOOD ORDERABLES Final Result Performing Organization Address [facility] Co de Phone Number [facility] [address] [facility]. [address] * (ABNORMAL) Ammonia (10/13/2024 5:35 AM EDT) Ammonia 203(HH) 27 - 90 ug/dL 10/13/2024 7:16 AM EDT [facility] Comment: HEMOLYSIS EVIDENT. RESULTS MAY BE INFLUENCED. Critical Result [id number] Called to and read back by: KEY MELO RN at: 10/13/2024 07:15:55 by:NISREEN Plasma 10/13/2024 5:35 AM EDT 10/13/2024 6:19 AM EDT Ellis Mays DO LAB BLOOD ORDERABLES Final Resul t Performing Organization Address [facility] Co de Phone Number [facility] [address] [facility]. [address] * (ABNORMAL) Renal Function Panel w/EGFR (10/13/2024 5:35 AM EDT) Sodium 134 133 - 146 mmol/L 10/13/2024 6:30 AM EDT [facility] Potassium 3.7 3.5 - 5.3 mmol/L 10/13/2024 6:30 AM EDT [facility] Chloride 109 98 - 110 mmol/L 10/13/2024 6:30 AM EDT [facility] CO2 14(L) 21 - 33 mmol/L 10/13/2024 6:30 AM EDT [facility] Anion Gap 11 3 - 16 mmol/L 10/13/2024 6:30 AM EDT [facility] BUN 54(H) 7 - 25 mg/dL 10/13/2024 6:30 AM EDT [facility] Creatinine 2.99(H) 0.60 - 1.30 mg/dL 10/13/2024 6:30 AM EDT [facility] Glucose 116(H) 70 - 100 mg/dL 10/13/2024 6:30 AM EDT [facility] Calcium 8.3(L) 8.6 - 10.3 mg/dL 10/13/2024 6:30 AM EDT [facility] Phosphorus 4.5 2.1 - 4.7 mg/dL 10/13/2024 6:30 AM EDT [facility] Albumin 3.1(L) 3.5 - 5.7 g/dL 10/13/2024 6:30 AM EDT [facility] Osmolality, Calculated 294 278 - 305 mOsm/kg 10/13/2024 6:30 AM EDT [facility] EGFR 26 10/13/2024 6:30 AM EDT [facility] Comment:As of 2021, the [...] MD, PhD LAB BLOOD ORDERABLES Final Result [facility] [address] [facility]. [address] * CARISA Rhythm Strip - Scan [...] BLOOD ORDERABLES Final Result Performing Organization Address [facility]/ZIP Co de Phone Number [facility] [address] [facility]. [address] * (ABNORMAL) Hepatic Function Panel (10/12/2024 5:44 AM EDT) Total Bilirubin 6.5(H) 0.0 - 1.5 mg/dL 10/12/2024 6:29 AM EDT [facility] Bilirubin, Direct 3.64(H) 0.00 - 0.40 mg/dL 10/12/2024 6:29 AM EDT [facility] AST 40(H) 13 - 39 U/L 10/12/2024 6:29 AM EDT [facility] ALT 19 7 - 52 U/L 10/12/2024 6:29 AM EDT [facility] Alkaline Phosphatase 99 36 - 125 U/L 10/12/2024 6:29 AM EDT [facility] Total Protein 4.2(L) 6.4 - 8.9 g/dL 10/12/2024 6:29 AM EDT [facility] Albumin 3.1(L) 3.5 - 5.7 g/dL 10/12/2024 6:29 AM EDT [facility] Bilirubin, Indirect 2.86(H) 0.00 - 1.10 mg/dL 10/12/2024 6:29 AM EDT [facility] Plasma 10/12/2024 5:44 AM EDT 10/12/2024 5:58 AM EDT Eileen Schroeder MD, PhD LAB BLOOD ORDERABLES Final Result Performing Organization Address [facility]/ZIP Co de Phone Number [facility] [address] * Magnesium (10/12/2024 5:44 AM EDT) Magnesium 1.9 1.5 - 2.5 mg/dL 10/12/2024 6:29 AM EDT [facility] Plasma 10/12/2024 5:44 AM EDT 10/12/2024 5:58 AM EDT us Eileen Schroeder MD, PhD LAB BLOOD ORDERABLES Final Result Performing Organization Address [facility]/ZIP Co de Phone Number [facility] [address] * (ABNORMAL) CBC (10/12/2024 5:44 AM EDT) WBC 3.3(L) 3.8 - 10.8 10E3/uL 10/12/2024 7:06 AM EDT [facility] RBC 1.95(L) 4.20 - 5.80 10E6/uL 10/12/2024 7:06 AM EDT [facility] Hemoglobin 7.2(L) 13.2 - 17.1 g/dL 10/12/2024 7:06 AM EDT [facility] Hematocrit 19.7(L) 38.5 - 50.0 % 10/12/2024 7:06 AM EDT [facility] MCV 101.2(H) 80.0 - 100.0 fL 10/12/2024 7:06 AM EDT [facility] MCH 37.0(H) 27.0 - 33.0 pg 10/12/2024 7:06 AM EDT [facility] MCHC 36.5(H) 32.0 - 36.0 g/dL 10/12/2024 7:06 AM EDT [facility] RDW 17.6(H) 11.0 - 15.0 % 10/12/2024 7:06 AM EDT [facility] Platelets 30(L) 140 - 400 10E3/uL 10/12/2024 7:06 AM EDT [facility] Comment: Specimen checked for clots. None detected. Slide Reviewed for PLT Clumps. None Seen. Platelet Estimate Decreased 10/12/2024 7:06 AM EDT [facility] MPV 8.3 7.5 - 11.5 fL 10/12/2024 7:06 AM EDT [facility] Whole Blood 10/12/2024 5:44 AM EDT 10/12/2024 5:58 AM EDT Narrative [facility] - 10/12/2024 7:06 AM EDT Peripheral blood smear was scanned per review criteria approved by the laboratory chief medical officer. Eileen Schroeder MD, PhD LAB BLOOD ORDERABLES Final Result Performing Organization Address City/State/[facility] Co de Phone Number [facility] [address] [place], [place] [address] * (ABNORMAL) Renal Function Panel w/EGFR (10/12/2024 5:44 AM EDT) Sodium 135 133 - 146 mmol/L 10/12/2024 6:29 AM EDT [facility] Potassium 3.7 3.5 - 5.3 mmol/L 10/12/2024 6:29 AM EDT [facility] Chloride 109 98 - 110 mmol/L 10/12/2024 6:29 AM EDT [facility] CO2 17(L) 21 - 33 mmol/L 10/12/2024 6:29 AM EDT [facility] Anion Gap 9 3 - 16 mmol/L 10/12/2024 6:29 AM EDT [facility] BUN 52(H) 7 - 25 mg/dL 10/12/2024 6:29 AM EDT [facility] Creatinine 2.94(H) 0.60 - 1.30 mg/dL 10/12/2024 6:29 AM EDT [facility] Glucose 121(H) 70 - 100 mg/dL 10/12/2024 6:29 AM EDT [facility] Calcium 8.5(L) 8.6 - 10.3 mg/dL 10/12/2024 6:29 AM EDT [facility] Phosphorus 4.6 2.1 - 4.7 mg/dL 10/12/2024 6:29 AM EDT [facility] Albumin 3.1(L) 3.5 - 5.7 g/dL 10/12/2024 6:29 AM EDT [facility] Osmolality, Calculated 295 278 - 305 mOsm/kg 10/12/2024 6:29 AM EDT [facility] EGFR 27 10/12/2024 6:29 AM EDT [facility] Comment:As of 2021, the [...] BLOOD ORDERABLES Final Result Performing Organization Address [facility]/ZIP Co de Phone Number [facility] [address] [facility]. [address] * CARISA Rhythm Strip - Scan (10/11/2024 10:04 PM EDT) us Scanning Uchhim SCAN DOCS - NO RESULTS Final Res ult * (ABNORMAL) Protime-INR (10/11/2024 3:02 AM EDT) Protime 26.8(H) 12.1 - 15.1 seconds 10/11/2024 3:30 AM EDT [facility] INR 2.4(H) 0.9 - 1.1 10/11/2024 3:30 AM EDT [facility] Comment: RECOMMENDED THERAPEUTIC RANGES USING INR : Stable oral anticoagulant therapy: 2.0 - 3.0 Mechanical prosthetic heart valve: 2.5 - 3.5 Recurrent acute myocardial infarction: 2.5 - 3.5 Plasma 10/11/2024 3:02 AM EDT 10/11/2024 3:08 AM EDT Eileen Schroeder MD, PhD LAB BLOOD ORDERABLES Final Result Performing Organization Address [facility] Co de Phone Number [facility] [address] * (ABNORMAL) Hepatic Function Panel (10/11/2024 3:02 AM EDT) Total Bilirubin 7.3(H) 0.0 - 1.5 mg/dL 10/11/2024 3:38 AM EDT [facility] Bilirubin, Direct 3.85(H) 0.00 - 0.40 mg/dL 10/11/2024 3:38 AM EDT [facility] AST 39 13 - 39 U/L 10/11/2024 3:38 AM EDT [facility] ALT 20 7 - 52 U/L 10/11/2024 3:38 AM EDT [facility] Alkaline Phosphatase 88 36 - 125 U/L 10/11/2024 3:38 AM EDT [facility] Total Protein 4.5(L) 6.4 - 8.9 g/dL 10/11/2024 3:38 AM EDT [facility] Albumin 3.3(L) 3.5 - 5.7 g/dL 10/11/2024 3:38 AM EDT [facility] Bilirubin, Indirect 3.45(H) 0.00 - 1.10 mg/dL 10/11/2024 3:38 AM EDT [facility] Plasma 10/11/2024 3:02 AM EDT 10/11/2024 3:08 AM EDT Eileen Schroeder MD, PhD LAB BLOOD ORDERABLES Final Result Performing Organization Address [facility]/ZIP Co de Phone Number [facility] [address] [facility]. [address] * Magnesium (10/11/2024 3:02 AM EDT) Magnesium 2.0 1.5 - 2.5 mg/dL 10/11/2024 3:38 AM EDT [facility] Plasma 10/11/2024 3:02 AM EDT 10/11/2024 3:08 AM EDT Eileen Schroeder MD, PhD LAB BLOOD ORDERABLES Final Result Performing Organization Address [facility] Co de Phone Number [facility] [address] * (ABNORMAL) CBC (10/11/2024 3:02 AM EDT) WBC 4.0 3.8 - 10.8 10E3/uL 10/11/2024 3:55 AM EDT [facility] RBC 2.11(L) 4.20 - 5.80 10E6/uL 10/11/2024 3:55 AM EDT [facility] Hemoglobin 7.7(L) 13.2 - 17.1 g/dL 10/11/2024 3:55 AM EDT [facility] Hematocrit 21.2(L) 38.5 - 50.0 % 10/11/2024 3:55 AM EDT [facility] MCV 100.5(H) 80.0 - 100.0 fL 10/11/2024 3:55 AM EDT [facility] MCH 36.4(H) 27.0 - 33.0 pg 10/11/2024 3:55 AM EDT [facility] MCHC 36.2(H) 32.0 - 36.0 g/dL 10/11/2024 3:55 AM EDT [facility] RDW 17.9(H) 11.0 - 15.0 % 10/11/2024 3:55 AM EDT [facility] Platelets 32(L) 140 - 400 10E3/uL 10/11/2024 3:55 AM EDT [facility] Comment: Specimen checked for clots. None detected. Slide Reviewed for PLT Clumps. None Seen. Platelet Estimate Decreased 10/11/2024 3:55 AM EDT [facility] MPV 8.1 7.5 - 11.5 fL 10/11/2024 3:55 AM EDT [facility] Whole Blood 10/11/2024 3:02 AM EDT 10/11/2024 3:08 AM EDT Narrative [facility] - 10/11/2024 3:55 AM EDT Peripheral blood smear was scanned per review criteria approved by the laboratory chief medical officer. us Eileen Schroeder MD, PhD LAB BLOOD ORDERABLES Final Result [facility] [address] * Vancomycin, random (10/11/2024 3:02 AM EDT) Vancomycin Random 13.4 ug/mL 10/11/2024 3:37 AM EDT [facility] Comment:Reference range not established for this test. Plasma 10/11/2024 3:02 AM EDT 10/11/2024 3:08 AM EDT us Jodi FreireD LAB BLOOD ORDERABLES Final Result [facility] [address] [place], [place] [address] * (ABNORMAL) Renal Function Panel w/EGFR (10/11/2024 3:02 AM EDT) Sodium 134 133 - 146 mmol/L 10/11/2024 3:38 AM EDT [facility] Potassium 3.6 3.5 - 5.3 mmol/L 10/11/2024 3:38 AM EDT [facility] Chloride 108 98 - 110 mmol/L 10/11/2024 3:38 AM EDT [facility] CO2 16(L) 21 - 33 mmol/L 10/11/2024 3:38 AM EDT [facility] Anion Gap 10 3 - 16 mmol/L 10/11/2024 3:38 AM EDT [facility] BUN 49(H) 7 - 25 mg/dL 10/11/2024 3:38 AM EDT [facility] Creatinine 2.77(H) 0.60 - 1.30 mg/dL 10/11/2024 3:38 AM EDT [facility] Glucose 112(H) 70 - 100 mg/dL 10/11/2024 3:38 AM EDT [facility] Calcium 8.9 8.6 - 10.3 mg/dL 10/11/2024 3:38 AM EDT [facility] Phosphorus 3.5 2.1 - 4.7 mg/dL 10/11/2024 3:38 AM EDT [facility] Albumin 3.3(L) 3.5 - 5.7 g/dL 10/11/2024 3:38 AM EDT [facility] Osmolality, Calculated 292 278 - 305 mOsm/kg 10/11/2024 3:38 AM EDT [facility] EGFR 29 10/11/2024 3:38 AM EDT [facility] Comment:As of 2021, the [...] MD, PhD LAB BLOOD ORDERABLES Final Result [facility] [address] [place] [address], [facility] * IR Paracentesis incl imaging [...] diagnostic and therapeutic paracentesis. Bakari Wahl CNP, Earth Science Professor Procedure and Findings: The procedure was performed [...] for diagnostic andtherapeutic paracentesis. Bakari Wahl CNP, Earth Science Professor Procedure and Findings: The procedure was performed [...] at 10/10/2024 3:31 PM EDT us Chari Vanegas MD IMG IR ORDERABLES Final Result * Stress Testing Lab - scan (10/10/2024 3:08 PM EDT) us Scanning Uchhim SCAN DOCS - NO RESULTS Final Res ult * (ABNORMAL) Body fluid cell count (10/10/2024 1:51 PM EDT) Color, Fluid Yellow(A) Colorless, Pale Yellow 10/10/2024 5:29 PM EDT [facility] Clarity, Fluid Clear 10/10/2024 5:29 PM EDT [facility] Neutrophil %, Fluid 9 % 10/10/2024 5:29 PM EDT [facility] Lymphocytes %, Fluid 13 % 10/10/2024 5:29 PM EDT [facility] Mesothelial %, Fluid 6 % 10/10/2024 5:29 PM EDT [facility] Macrophage %, Fluid 72 % 10/10/2024 5:29 PM EDT [facility] RBC, Fluid 2,662 /uL 10/10/2024 4:41 PM EDT [facility] Total Nucleated Cells, Fluid 89 /uL 10/10/2024 4:41 PM EDT [facility] Comment:Total Nucleated Cell s represent WBCs and other nucleated cells in the fluid such as lining cells. Ascitic Fluid ABDOMEN / Unknown 1:51 PM EDT 10/10/2024 3:56 PM EDT us Gerri Peterson MD BODY FLUIDS AND STOOLS ORDERABL ES Final Result [facility] [address] [place] [address], [facility] * Body Fluid Culture plus Stain (10/10/2024 1:51 PM EDT) Gram Stain Result Cytospin Results: [facility] Gram Stain Result Polymorphonuclear Leukocytes Seen; [facility] Gram Stain Result No Organisms Seen; [facility] Culture Result No Growth After 5 Days [facility] Fluid ABDOMEN / Unknown 10/10/2024 1:51 PM EDT 10/10/2024 3:56 PM EDT us Gerri Peterson MD MICROBIOLOGY - GENERAL ORDERABL ES Final Result [facility] [address] * UPPER GI ENDOSCOPY (10/10/2024 11:48 AM EDT) 10/10/2024 11:4 8 AM EDT Narrative [facility] - 10/10/2024 12:34 PM EDT [id number] Procedure Date: 10/10/2024 11:48 AM Patient Name: Julien Gilbert Date of : 1985 Admit Type: Inpatient Age: 39 Gender: Male Note Status: Finalized Attending MD: Lino Soto MD, [id number] Procedure: Upper GI endoscopy Indications: Gastroesopahgeal variceal [...] verified by the physician, the nurse, the sensor operator and the supervisor sound technician in the pre-procedure area in the [...] to hypotension Procedure Code(s): --- Professional --- 54306, GC, Esophagogastroduodenoscopy, flexible, transoral; diagnostic, including collection of specimen(s) by brushing or washing, when performed (separate procedure) Diagnosis Code(s): --- Professional --- I85.00, Esophageal varices without bleeding K76.6, Portal hypertension K31.89, Other diseases of stomach and duodenum CPT copyright 2022 [employer]. All rights reserved. The codes documented in this report are preliminary and upon quarrying specialist review may be revised to meet current [...] In: 12:10:16 PM Scope Out: 12:17:[address] [place] [address], [id number] us Provider Not In System PROCEDURE/MINOR SURGICAL [...] BLOOD ORDERABLES Final Result Performing Organization Address [facility]/ZIP Co de Phone Number [facility] [address] * (ABNORMAL) Hepatic Function Panel (10/10/2024 5:23 AM EDT) Total Bilirubin 8.6(H) 0.0 - 1.5 mg/dL 10/10/2024 6:21 AM EDT [facility] Bilirubin, Direct 4.65(H) 0.00 - 0.40 mg/dL 10/10/2024 6:21 AM EDT [facility] AST 40(H) 13 - 39 U/L 10/10/2024 6:21 AM EDT [facility] ALT 22 7 - 52 U/L 10/10/2024 6:21 AM EDT [facility] Alkaline Phosphatase 118 36 - 125 U/L 10/10/2024 6:21 AM EDT [facility] Total Protein 4.6(L) 6.4 - 8.9 g/dL 10/10/2024 6:21 AM EDT [facility] Albumin 3.3(L) 3.5 - 5.7 g/dL 10/10/2024 6:21 AM EDT [facility] Bilirubin, Indirect 3.95(H) 0.00 - 1.10 mg/dL 10/10/2024 6:21 AM EDT [facility] Plasma 10/10/2024 5:23 AM EDT 10/10/2024 5:50 AM EDT us Eileen Schroeder MD, PhD LAB BLOOD ORDERABLES Final Result [facility] [address] * Magnesium (10/10/2024 5:23 AM EDT) Magnesium 1.9 1.5 - 2.5 mg/dL 10/10/2024 6:21 AM EDT [facility] Plasma 10/10/2024 5:23 AM EDT 10/10/2024 5:50 AM EDT us Eileen Schroeder MD, PhD LAB BLOOD ORDERABLES Final Result [facility] [address] * (ABNORMAL) CBC (10/10/2024 5:23 AM EDT) WBC 5.1 3.8 - 10.8 10E3/uL 10/10/2024 6:14 AM EDT [facility] RBC 2.04(L) 4.20 - 5.80 10E6/uL 10/10/2024 6:14 AM EDT [facility] Hemoglobin 7.3(L) 13.2 - 17.1 g/dL 10/10/2024 6:14 AM EDT [facility] Hematocrit 20.6(L) 38.5 - 50.0 % 10/10/2024 6:14 AM EDT [facility] MCV 101.2(H) 80.0 - 100.0 fL 10/10/2024 6:14 AM EDT [facility] MCH 36.0(H) 27.0 - 33.0 pg 10/10/2024 6:14 AM EDT [facility] MCHC 35.5 32.0 - 36.0 g/dL 10/10/2024 6:14 AM EDT [facility] RDW 17.6(H) 11.0 - 15.0 % 10/10/2024 6:14 AM EDT [facility] Platelets 39(L) 140 - 400 10E3/uL 10/10/2024 6:14 AM EDT [facility] Comment: CNV Specimen checked for clots. None detected. MPV 9.8 7.5 - 11.5 fL 10/10/2024 6:14 AM EDT [facility] Whole Blood 10/10/2024 5:23 AM EDT 10/10/2024 5:51 AM EDT us Eileen Schroeder MD, PhD LAB BLOOD ORDERABLES Final Result [facility] [address] * Vancomycin, random (10/10/2024 5:23 AM EDT) Vancomycin Random 16.4 ug/mL 10/10/2024 6:22 AM EDT [facility] Comment:Reference range not established for this test. Plasma 10/10/2024 5:23 AM EDT 10/10/2024 5:51 AM EDT us Jodi FreireD LAB BLOOD ORDERABLES Final Result Performing Organization Address City/[facility]/ZIP Co de Phone Number [facility] [address] * (ABNORMAL) Renal Function Panel w/EGFR (10/10/2024 5:23 AM EDT) Sodium 135 133 - 146 mmol/L 10/10/2024 6:21 AM EDT [facility] Potassium 3.6 3.5 - 5.3 mmol/L 10/10/2024 6:21 AM EDT [facility] Chloride 108 98 - 110 mmol/L 10/10/2024 6:21 AM EDT [facility] CO2 17(L) 21 - 33 mmol/L 10/10/2024 6:21 AM EDT [facility] Anion Gap 10 3 - 16 mmol/L 10/10/2024 6:21 AM EDT [facility] BUN 53(H) 7 - 25 mg/dL 10/10/2024 6:21 AM EDT [facility] Creatinine 2.85(H) 0.60 - 1.30 mg/dL 10/10/2024 6:21 AM EDT [facility] Glucose 113(H) 70 - 100 mg/dL 10/10/2024 6:21 AM EDT [facility] Calcium 9.0 8.6 - 10.3 mg/dL 10/10/2024 6:21 AM EDT [facility] Phosphorus 3.3 2.1 - 4.7 mg/dL 10/10/2024 6:21 AM EDT [facility] Albumin 3.3(L) 3.5 - 5.7 g/dL 10/10/2024 6:21 AM EDT [facility] Osmolality, Calculated 295 278 - 305 mOsm/kg 10/10/2024 6:21 AM EDT [facility] EGFR 28 10/10/2024 6:21 AM EDT [facility] Comment:As of 2021, the [...] MD, PhD LAB BLOOD ORDERABLES Final Result [facility] [address] [facility] [place] [address], [facility] * ECHO STRESS W/ CONTRAST (10/09/2024 4:37 PM EDT) Anatomical Region Laterality Modality Chest Ultrasound 10/09/2024 2:40 PM EDT Narrative 10/09/2024 6:45 PM EDT * [facility]* [address] [place] [id number] Stress Echocardiogram Patient: Julien Gilbert Room: 8142 Height: 76in MR Number: [id number] : 1985 Weight: 262lb Account: [id number] Gender: M BP: 125 / 77 Study Date: 10/09/2024 Age: 39 BSA: 2.48m^2 Referring physician: Gerri Peterson Interpreting physician: Tonya Henriquez MD FELLOW Lisa Jha MD PERFORMING Tonya Henriquez MD TABLE INSPECTOR [employer] ORDERING Gerri Peterson REFERRING Gerri Peterson Sharice N ADMITTING Angie Blanchard Procedure:STRESS ECHO - PHARMACOLOGIC [...] was augmented by the addition of hand forest fire officer and leg lifts. The infusion was terminated [...] at baseline or with provocation, shows no amfry-nv-ulgs atrial level shunt. - Pulmonary arteries: Systolic [...] at baseline or with provocation, shows no jqzns-fn-lpbj atrial level shunt. Pulmonary artery: - Systolic [...] at baseline or with provocation, shows no yvucq-id-opdn atrial level shunt. Pericardium: - There is [...] peak heart rate and blood pressure was 35827hh Hg/min. Stress testing did not produce any [...] Reviewed and confirmed by Tonya Henriquez MD [id number] Procedure Note Tonya Henriquez MD - 10/09/2024 * [facility]* [address] [place] [address] Stress Echocardiogram Patient: Julien Gilbert Room: 42 Height: 76in MR Number: [id number] : 1985 Weight: 262lb Account: [id number] Gender: M BP: 125 / 77 Study Date: 10/09/2024 Age: 39 BSA: 2.48m^2 Referring physician: Gerri Peterson Interpreting physician: Tonya Henriquez MD FELLOW Lisa Jha MD PERFORMING Tonya Henriquez MD TABLE INSPECTOR [employer] Gan ORDERING Gerri Peterson REFERRING Gerri Peterson ATTENDING Fouzia Rene ADMITTING Angie Blanchard Procedure:STRESS ECHO - PHARMACOLOGIC Order: Indications: Pre-Operative Clearance (Z01.818). PMH: EtOH Use Disorder. Risk factors: Hypertension. Dyslipidemia. Study data: Height: 76in. 193cm. Weight: 262lb. 118.8kg. The previousstudy was not available, so comparison was made to the report of 07/15/2024. Study status: Routine. Procedure[facility]. Intravenous access [...] was augmented by the addition of hand forest fire officer and leg lifts. The infusion was terminated [...] at baseline or with provocation, shows no ljqhv-ys-ykso atrial level shunt. - Pulmonary arteries: Systolic [...] study at baseline or with provocation, showsno qdgqk-dg-hqyw atrial level shunt. Pulmonary artery: - Systolic [...] at baseline or with provocation, shows no okvoz-zo-aufb atrial level shunt. Pericardium: - There is [...] heart rate). The maximal predicted heart rate see045tyh. The target heart rate was 152bpm. The target heart rate was achieved.The heart rate response to stress is normal. There is a normal resting blood pressure with an appropriate response to stress. The rate-pressureproduct for the peak heart rate and blood pressure was 30411yc Hg/min. Stress testing did not produce any [...] Reviewed and confirmed by Tonya Henriquez MD [id number] us Gerri Peterson MD CV ECHO ORDERABLES Final Result * (ABNORMAL) Renal Function Panel w/EGFR, STAT (10/09/2024 1:05 PM EDT) Sodium 134 133 - 146 mmol/L 10/09/2024 2:10 PM EDT [facility] Potassium 3.7 3.5 - 5.3 mmol/L 10/09/2024 2:10 PM EDT [facility] Chloride 105 98 - 110 mmol/L 10/09/2024 2:10 PM EDT [facility] CO2 17(L) 21 - 33 mmol/L 10/09/2024 2:10 PM EDT [facility] Anion Gap 12 3 - 16 mmol/L 10/09/2024 2:10 PM EDT [facility] BUN 53(H) 7 - 25 mg/dL 10/09/2024 2:10 PM EDT [facility] Creatinine 2.89(H) 0.60 - 1.30 mg/dL 10/09/2024 2:10 PM EDT [facility] Glucose 108(H) 70 - 100 mg/dL 10/09/2024 2:10 PM EDT [facility] Calcium 9.3 8.6 - 10.3 mg/dL 10/09/2024 2:10 PM EDT [facility] Phosphorus 3.4 2.1 - 4.7 mg/dL 10/09/2024 2:10 PM EDT [facility] Albumin 3.6 3.5 - 5.7 g/dL 10/09/2024 2:10 PM EDT [facility] Osmolality, Calculated 293 278 - 305 mOsm/kg 10/09/2024 2:10 PM EDT [facility] EGFR 27 10/09/2024 2:10 PM EDT [facility] Comment:As of 2021, the [...] MD, PhD LAB BLOOD ORDERABLES Final Result [facility] [address] [facility] [place] [address], [facility] * (ABNORMAL) Renal Function Panel w/EGFR, STAT (10/09/2024 8:14 AM EDT) Sodium 134 133 - 146 mmol/L 10/09/2024 8:47 AM EDT [facility] Potassium 3.4(L) 3.5 - 5.3 mmol/L 10/09/2024 8:47 AM EDT [facility] Chloride 107 98 - 110 mmol/L 10/09/2024 8:47 AM EDT [facility] CO2 17(L) 21 - 33 mmol/L 10/09/2024 8:47 AM EDT [facility] Anion Gap 10 3 - 16 mmol/L 10/09/2024 8:47 AM EDT [facility] BUN 54(H) 7 - 25 mg/dL 10/09/2024 8:47 AM EDT [facility] Creatinine 3.04(H) 0.60 - 1.30 mg/dL 10/09/2024 8:47 AM EDT [facility] Glucose 124(H) 70 - 100 mg/dL 10/09/2024 8:47 AM EDT [facility] Calcium 9.0 8.6 - 10.3 mg/dL 10/09/2024 8:47 AM EDT [facility] Phosphorus 3.5 2.1 - 4.7 mg/dL 10/09/2024 8:47 AM EDT [facility] Albumin 3.4(L) 3.5 - 5.7 g/dL 10/09/2024 8:47 AM EDT [facility] Osmolality, Calculated 294 278 - 305 mOsm/kg 10/09/2024 8:47 AM EDT [facility] EGFR 26 10/09/2024 8:47 AM EDT [facility] Comment:As of 2021, the [...] ORDERABLES Final Resu lt Performing Organization Address City/State/[facility] Co de Phone Number [facility] [address] * Prepare RBC, leukoreduced, 1 Units (10/09/2024 6:16 AM EDT) Product Code D8277R73 [facility] Unit Number [id number] [facility] Dispense Status Presumed Transfused_PT [facility] Blood Expiration Date [id number] [facility] Coding System [id number] [facility] Blood Bank Product us Eileen Schroeder MD, PhD BLOOD BANK PRODUCT OR DERABLES Final Result [facility] * (ABNORMAL) Protime-INR (10/09/2024 4:59 AM EDT) Protime 26.5(H) 12.1 - 15.1 seconds 10/09/2024 6:30 AM EDT [facility] INR 2.4(H) 0.9 - 1.1 10/09/2024 6:30 AM EDT [facility] Comment: RECOMMENDED THERAPEUTIC RANGES USING INR : Stable oral anticoagulant therapy: 2.0 - 3.0 Mechanical prosthetic heart valve: 2.5 - 3.5 Recurrent acute myocardial infarction: 2.5 - 3.5 Plasma 10/09/2024 4:59 AM EDT 10/09/2024 5:55 AM EDT Eileen Schroeder MD, PhD LAB BLOOD ORDERABLES Final Result Performing Organization Address City/[facility]/ZIP Co de Phone Number [facility] [address] * (ABNORMAL) Hepatic Function Panel (10/09/2024 4:59 AM EDT) Total Bilirubin 9.0(H) 0.0 - 1.5 mg/dL 10/09/2024 6:42 AM EDT [facility] Bilirubin, Direct 4.60(H) 0.00 - 0.40 mg/dL 10/09/2024 6:42 AM EDT [facility] AST 38 13 - 39 U/L 10/09/2024 6:42 AM EDT [facility] ALT 18 7 - 52 U/L 10/09/2024 6:42 AM EDT [facility] Alkaline Phosphatase 122 36 - 125 U/L 10/09/2024 6:42 AM EDT [facility] Total Protein 4.8(L) 6.4 - 8.9 g/dL 10/09/2024 6:42 AM EDT [facility] Albumin 3.4(L) 3.5 - 5.7 g/dL 10/09/2024 6:42 AM EDT [facility] Bilirubin, Indirect 4.40(H) 0.00 - 1.10 mg/dL 10/09/2024 6:42 AM EDT [facility] Plasma 10/09/2024 4:59 AM EDT 10/09/2024 5:57 AM EDT Eileen Schroeder MD, PhD LAB BLOOD ORDERABLES Final Result Performing Organization Address City/[facility]/ZIP Co de Phone Number [facility] [address] * Magnesium (10/09/2024 4:59 AM EDT) Magnesium 1.8 1.5 - 2.5 mg/dL 10/09/2024 6:42 AM EDT [facility] Plasma 10/09/2024 4:59 AM EDT 10/09/2024 5:57 AM EDT Eileen Schroeder MD, PhD LAB BLOOD ORDERABLES Final Result Performing Organization Address [facility] Co de Phone Number [facility] [address] * (ABNORMAL) CBC (10/09/2024 4:59 AM EDT) WBC 4.6 3.8 - 10.8 10E3/uL 10/09/2024 6:21 AM EDT [facility] RBC 2.17(L) 4.20 - 5.80 10E6/uL 10/09/2024 6:21 AM EDT [facility] Hemoglobin 8.0(L) 13.2 - 17.1 g/dL 10/09/2024 6:21 AM EDT [facility] Hematocrit 21.8(L) 38.5 - 50.0 % 10/09/2024 6:21 AM EDT [facility] MCV 100.5(H) 80.0 - 100.0 fL 10/09/2024 6:21 AM EDT [facility] MCH 36.7(H) 27.0 - 33.0 pg 10/09/2024 6:21 AM EDT [facility] MCHC 36.5(H) 32.0 - 36.0 g/dL 10/09/2024 6:21 AM EDT [facility] RDW 18.1(H) 11.0 - 15.0 % 10/09/2024 6:21 AM EDT [facility] Platelets 36(L) 140 - 400 10E3/uL 10/09/2024 6:21 AM EDT [facility] Comment:Specimen checked for clots. None detected. MPV 8.3 7.5 - 11.5 fL 10/09/2024 6:21 AM EDT [facility] Whole Blood 10/09/2024 4:59 AM EDT 10/09/2024 5:56 AM EDT us Eileen Schroeder MD, PhD LAB BLOOD ORDERABLES Final Result Performing Organization Address [facility] Co de Phone Number [facility] [address] * Renal Tx Recipient (10/09/2024 4:59 AM EDT) [facility] Renal Transplant Recipient The request and specimen(s) for this test have been received and transported to the [facility] at [address] [place] [address]. The [facility] will report results directly to the client. 10/09/2024 7:26 AM EDT [facility] Blood 10/09/2024 4:59 AM EDT 10/09/2024 7:26 AM EDT us Aaron Gonzalez MD LAB BLOOD ORDERABLES Final Resu lt Performing Organization Address [facility]/ZIP Co de Phone Number [facility] [address] * Vancomycin, random (10/09/2024 4:59 AM EDT) [facility] Vancomycin Random 11.0 ug/mL 10/09/2024 6:33 AM EDT [facility] Comment:Reference range not established for this test. Plasma 10/09/2024 4:59 AM EDT 10/09/2024 5:56 AM EDT us Jodi Ortiz PharmD LAB BLOOD ORDERABLES Final Result [facility] [address] [place] [address], [facility] * (ABNORMAL) Renal Function Panel w/EGFR (10/09/2024 4:59 AM EDT) Sodium 134 133 - 146 mmol/L 10/09/2024 6:42 AM EDT [facility] Potassium 3.3(L) 3.5 - 5.3 mmol/L 10/09/2024 6:42 AM EDT [facility] Chloride 107 98 - 110 mmol/L 10/09/2024 6:42 AM EDT [facility] CO2 16(L) 21 - 33 mmol/L 10/09/2024 6:42 AM EDT [facility] Anion Gap 11 3 - 16 mmol/L 10/09/2024 6:42 AM EDT [facility] BUN 56(H) 7 - 25 mg/dL 10/09/2024 6:42 AM EDT [facility] Creatinine 2.98(H) 0.60 - 1.30 mg/dL 10/09/2024 6:42 AM EDT [facility] Glucose 112(H) 70 - 100 mg/dL 10/09/2024 6:42 AM EDT [facility] Calcium 9.0 8.6 - 10.3 mg/dL 10/09/2024 6:42 AM EDT [facility] Phosphorus 3.5 2.1 - 4.7 mg/dL 10/09/2024 6:42 AM EDT [facility] Albumin 3.4(L) 3.5 - 5.7 g/dL 10/09/2024 6:42 AM EDT [facility] Osmolality, Calculated 294 278 - 305 mOsm/kg 10/09/2024 6:42 AM EDT [facility] EGFR 26 10/09/2024 6:42 AM EDT [facility] Comment:As of 2021, the [...] MD, PhD LAB BLOOD ORDERABLES Final Result [facility] [address] [place] [address], [facility] * (ABNORMAL) CBC (10/08/2024 5:52 PM EDT) WBC 5.6 3.8 - 10.8 10E3/uL 10/08/2024 6:52 PM EDT [facility] RBC 2.38(L) 4.20 - 5.80 10E6/uL 10/08/2024 6:52 PM EDT [facility] Hemoglobin 8.3(L) 13.2 - 17.1 g/dL 10/08/2024 6:52 PM EDT [facility] Hematocrit 24.6(L) 38.5 - 50.0 % 10/08/2024 6:52 PM EDT [facility] MCV 103.2(H) 80.0 - 100.0 fL 10/08/2024 6:52 PM EDT [facility] MCH 34.7(H) 27.0 - 33.0 pg 10/08/2024 6:52 PM EDT [facility] MCHC 33.6 32.0 - 36.0 g/dL 10/08/2024 6:52 PM EDT [facility] RDW 18.5(H) 11.0 - 15.0 % 10/08/2024 6:52 PM EDT [facility] Platelets 39(L) 140 - 400 10E3/uL 10/08/2024 6:52 PM EDT [facility] Comment:CNV MPV 8.1 7.5 - 11.5 fL 10/08/2024 6:52 PM EDT [facility] Whole Blood 10/08/2024 5:52 PM EDT 10/08/2024 6:45 PM EDT Eileen Schroeder MD, PhD LAB BLOOD ORDERABLES Final Result Performing Organization Address [facility]/ZIP Co de Phone Number [facility] [address] * Transfuse RBC Has consent been obtained? Yes; Transfusion Rate: Per dept routine (10/08/2024 1:17 PM EDT) Eileen Schroeder MD, PhD NURSING TREATMENT ORD ERABLES - BLOOD ADMIN Final Result Performing Organization Address City/[facility]/ZIP Co de Phone Number EXTERNAL * Transfuse RBC Has consent been obtained? Yes; Transfusion Rate: Per dept routine, 1 Units (10/08/2024 1:17 PM EDT) Eileen Schroeder MD, PhD NURSING TREATMENT ORD ERABLES - BLOOD ADMIN Final Result Performing Organization Address City/[facility] Co de Phone Number EXTERNAL * (ABNORMAL) MMR(IgG) Panel (Measles, Mumps, Rubella) (10/08/2024 10:25 AM EDT) Mumps IgG Positive 10/08/2024 11:39 AM EDT [facility] MUMPS IGG NUM 99.00(H) 0.0 - 8.9 U/mL 10/08/2024 11:39 AM EDT [facility] Rubella IgG Scr Positive 10/08/2024 11:40 AM EDT [facility] RUB NUM 4.15(H) 0.00 - 0.89 INDEX 10/08/2024 11:40 AM EDT [facility] Rubeola Ab, IgG Positive 10/08/2024 11:39 AM EDT [facility] RUB IGG NUM 273.00(H) 0.00 - 13.40 U/mL 10/08/2024 11:39 AM EDT [facility] Serum 10/08/2024 10:2 5 AM EDT 10/08/2024 10:49 AM EDT Narrative [facility] - 10/08/2024 11:40 AM EDT [...] ORDERABLES Final Resu lt Performing Organization Address City/[facility]/ZIP Co de Phone Number [facility] [address] [facility] * (ABNORMAL) Hemoglobin A1C (10/08/2024 10:25 AM EDT) Hemoglobin A1C 3.7(L) 4.0 - 5.6 % 10/09/2024 1:22 PM EDT [facility] Comment: Hemoglobin A1c Interpretation Guidelines: [...] ORDERABLES Final Resu lt Performing Organization Address [facility] Co de Phone Number [facility] [address] [facility] * (ABNORMAL) Vitamin D 25 Hydroxy (10/08/2024 10:25 AM EDT) Vit D, 25-Hydroxy 7.1(L) 30.0 - 100.0 ng/mL 10/08/2024 11:36 AM EDT [facility] Comment: Vitamin D deficiency has been defined by the [place] of [employer] (IOM) and an Endocrine Society [...] MD LAB BLOOD ORDERABLES Final Resu lt [facility] [address] * Iron Studies (Iron + TIBC) (10/08/2024 10:25 AM EDT) Iron 81 50 - 212 ug/dL 10/08/2024 11:23 AM EDT [facility] % Iron Saturation SEE COMMENT 15.0 - 55.0 % 10/08/2024 11:23 AM EDT [facility] Comment:Unable to calculate result because contributing result outside reportable range.. TIBC SEE COMMENT 261 - 462 ug/dL 10/08/2024 11:23 AM EDT [facility] Comment:Unable to calculate result because contributing result outside reportable range.. Serum 10/08/2024 10:2 5 AM EDT 10/08/2024 10:49 AM EDT Gerri Peterson MD LAB BLOOD ORDERABLES Final Resu lt [facility] [address] * (ABNORMAL) Ferritin (10/08/2024 10:25 AM EDT) Ferritin 706.9(H) 23.9 - 336.2 ng/mL 10/08/2024 11:35 AM EDT [facility] Serum 10/08/2024 10:2 5 AM EDT 10/08/2024 10:49 AM EDT Gerri Peterson MD LAB BLOOD ORDERABLES Final Resu lt [facility] [address] [facility] [address] * QuantiFERON TB2 Ag (10/08/2024 10:25 AM EDT) QuantiFERON TB2 Ag Value 0.07 10/10/2024 10:41 AM EDT [facility] Plasma 10/08/2024 10:2 5 AM EDT 10/08/2024 11:05 AM EDT Gerri Peterson MD LAB BLOOD ORDERABLES Final Resu lt [facility] [address] * QuantiFERON TB1 Ag (10/08/2024 10:25 AM EDT) QuantiFERON TB1 Ag Value 0.06 10/10/2024 10:41 AM EDT [facility] Plasma 10/08/2024 10:2 5 AM EDT 10/08/2024 11:05 AM EDT Gerri Peterson MD LAB BLOOD ORDERABLES Final Resu lt [facility] [address] * QuantiFERON Nil (10/08/2024 10:25 AM EDT) QuantiFERON Nil 0.06 10:41 AM EDT [facility] Plasma 10/08/2024 10:2 5 AM EDT 10/08/2024 11:05 AM EDT Gerri Peterson MD LAB BLOOD ORDERABLES Final Resu lt Performing Organization Address City/[facility]/ZIP Co de Phone Number [facility] [address] [place] [address], [facility] * QuantiFERON Mitogen (10/08/2024 10:25 AM EDT) QuantiFERON Interpretation Negative Negative 10/10/2024 10:41 AM EDT [facility] Comment:Negative result geovanny cates M. tuberculosis infection is NOT likely. Negative results do not preclude tuberculosis infection (especially in immunosuppressed patients). Negative results have a TB antigen minus Nil value less than 0.35 IU/mL. In cases with high suspicion of disease, retesting or additional testing with medical evaluation may be useful. QuantiFERON Mitogen 4.87 10/10 10:41 AM EDT [facility] Plasma 10/08/2024 10:2 5 AM EDT 10/08/2024 11:05 AM EDT Narrative [facility] - 10/10/2024 10:41 AM EDT [...] MD LAB BLOOD ORDERABLES Final Resu lt [facility] [address] * Reticulocyte Count, Auto (10/08/2024 7:41 AM EDT) Retic Ct Pct 1.35 0.50 - 2.00 % 10/08/2024 9:12 AM EDT [facility] Retic Ct Abs 26,190 25,000 - 90,000 /uL 10/08/2024 9:14 AM EDT [facility] Immature Retic Fract 0.37 0.09 - 0.56 10/08/2024 9:12 AM EDT [facility] Whole Blood 10/08/2024 7:41 AM EDT 10/08/2024 8:51 AM EDT us Angie Blanchard MD LAB BLOOD ORDERABLES Final Res ult Performing Organization Address City/[facility]/ZIP Co de Phone Number [facility] [address] * (ABNORMAL) Haptoglobin (10/08/2024 7:41 AM EDT) Haptoglobin <30(L) 44 - 215 mg/dL 10/08/2024 8:53 AM EDT [facility] Serum 10/08/2024 7:41 AM EDT 10/08/2024 7:51 AM EDT us Eileen Schroeder MD, PhD LAB BLOOD ORDERABLES Final Result [facility] [address] * (ABNORMAL) CBC - Post Transfusion (10/08/2024 7:41 AM EDT) WBC 3.7(L) 3.8 - 10.8 10E3/uL 10/08/2024 8:34 AM EDT [facility] RBC 1.94(L) 4.20 - 5.80 10E6/uL 10/08/2024 8:34 AM EDT [facility] Hemoglobin 7.1(L) 13.2 - 17.1 g/dL 10/08/2024 8:34 AM EDT [facility] Hematocrit 20.0(L) 38.5 - 50.0 % 10/08/2024 8:34 AM EDT [facility] MCV 103.1(H) 80.0 - 100.0 fL 10/08/2024 8:34 AM EDT [facility] MCH 36.5(H) 27.0 - 33.0 pg 10/08/2024 8:34 AM EDT [facility] MCHC 35.4 32.0 - 36.0 g/dL 10/08/2024 8:34 AM EDT [facility] RDW 17.2(H) 11.0 - 15.0 % 10/08/2024 8:34 AM EDT [facility] Platelets 37(L) 140 - 400 10E3/uL 10/08/2024 8:34 AM EDT [facility] Comment: Specimen checked for clots. None detected. Slide Reviewed for PLT Clumps. None Seen. _Platelet Morphology Normal _Platelets Appear Decreased MPV 8.7 7.5 - 11.5 fL 10/08/2024 8:34 AM EDT [facility] Whole Blood 10/08/2024 7:41 AM EDT 10/08/2024 7:52 AM EDT [facility] - 10/08/2024 8:34 AM EDT Post-transfusion us Eileen Schroeder MD, PhD LAB BLOOD ORDERABLES Final Result [facility] [address] [id number] * Antibody Screen (10/08/2024 7:41 AM EDT) Antibody Screen Negative 10/08/2024 8:26 AM EDT [facility] Blood 10/08/2024 7:41 AM EDT 10/08/2024 7:57 AM EDT [facility] - 10/08/2024 8:32 AM EDT Testing performed by [facility] Transfusion Service Eileen Schroeder MD, PhD BLOOD BANK TEST ORDER PAL Final Result Performing Organization Address [facility]/ZIP Co de Phone Number [facility] [address] * ABO/Rh (10/08/2024 7:41 AM EDT) ABO Grouping O 10/08/2024 8:14 AM EDT [facility] Rh Type Positive 10/08/2024 8:14 AM EDT [facility] Blood 10/08/2024 7:41 AM EDT 10/08/2024 7:57 AM EDT Eileen Schroeder MD, PhD BLOOD BANK TEST ORDER PAL Final Result Performing Organization Address [facility] Co de Phone Number [facility] [address] [place] [address]. [address] * (ABNORMAL) Lactate dehydrogenase (10/08/2024 5:36 AM EDT) LD 102(L) 110 - 270 U/L 10/08/2024 8:20 AM EDT [facility] Plasma 10/08/2024 5:36 AM EDT 10/08/2024 7:58 AM EDT Angie Blanchard MD LAB BLOOD ORDERABLES Final Res ult Performing Organization Address City/[facility] Co de Phone Number [facility] [address] [facility]. [address] * (ABNORMAL) Protime-INR (10/08/2024 5:36 AM EDT) Protime 26.9(H) 12.1 - 15.1 seconds 10/08/2024 6:11 AM EDT [facility] INR 2.4(H) 0.9 - 1.1 10/08/2024 6:11 AM EDT [facility] Comment: RECOMMENDED THERAPEUTIC RANGES USING INR : Stable oral anticoagulant therapy: 2.0 - 3.0 Mechanical prosthetic heart valve: 2.5 - 3.5 Recurrent acute myocardial infarction: 2.5 - 3.5 Plasma 10/08/2024 5:36 AM EDT 10/08/2024 5:52 AM EDT Eileen Schroeder MD, PhD LAB BLOOD ORDERABLES Final Result Performing Organization Address [facility] Co de Phone Number [facility] [address] * (ABNORMAL) Hepatic Function Panel (10/08/2024 5:36 AM EDT) Total Bilirubin 7.7(H) 0.0 - 1.5 mg/dL 10/08/2024 6:25 AM EDT [facility] Bilirubin, Direct 4.28(H) 0.00 - 0.40 mg/dL 10/08/2024 6:25 AM EDT [facility] AST 34 13 - 39 U/L 10/08/2024 6:25 AM EDT [facility] ALT 16 7 - 52 U/L 10/08/2024 6:25 AM EDT [facility] Alkaline Phosphatase 103 36 - 125 U/L 10/08/2024 6:25 AM EDT [facility] Total Protein 4.7(L) 6.4 - 8.9 g/dL 10/08/2024 6:25 AM EDT [facility] Albumin 3.5 3.5 - 5.7 g/dL 10/08/2024 6:25 AM EDT [facility] Bilirubin, Indirect 3.42(H) 0.00 - 1.10 mg/dL 10/08/2024 6:25 AM EDT [facility] Plasma 10/08/2024 5:36 AM EDT 10/08/2024 5:52 AM EDT Eileen Schroeder MD, PhD LAB BLOOD ORDERABLES Final Result Performing Organization Address [facility] Co de Phone Number [facility] [address] * Magnesium (10/08/2024 5:36 AM EDT) Magnesium 1.9 1.5 - 2.5 mg/dL 10/08/2024 6:25 AM EDT [facility] Plasma 10/08/2024 5:36 AM EDT 10/08/2024 5:52 AM EDT us Eileen Schroeder MD, PhD LAB BLOOD ORDERABLES Final Result [facility] [address] [place] [address], [facility] * (ABNORMAL) CBC (10/08/2024 5:36 AM EDT) Pathologist [facility] WBC 3.2(L) 3.8 - 10.8 10E3/uL 10/08/2024 6:41 AM EDT [facility] RBC 1.86(L) 4.20 - 5.80 10E6/uL 10/08/2024 6:41 AM EDT [facility] Hemoglobin 6.9(L) 13.2 - 17.1 g/dL 10/08/2024 6:41 AM EDT [facility] Hematocrit 18.9(L) 38.5 - 50.0 % 10/08/2024 6:41 AM EDT [facility] MCV 101.6(H) 80.0 - 100.0 fL 10/08/2024 6:41 AM EDT [facility] MCH 36.9(H) 27.0 - 33.0 pg 10/08/2024 6:41 AM EDT [facility] MCHC 36.3(H) 32.0 - 36.0 g/dL 10/08/2024 6:41 AM EDT [facility] RDW 17.0(H) 11.0 - 15.0 % 10/08/2024 6:41 AM EDT [facility] Platelets 34(L) 140 - 400 10E3/uL 10/08/2024 6:41 AM EDT [facility] Comment: Specimen checked for clots. None detected. Slide Reviewed for PLT Clumps. None Seen. Platelet Estimate Decreased 10/08/2024 6:41 AM EDT [facility] MPV 8.4 7.5 - 11.5 fL 10/08/2024 6:41 AM EDT [facility] Whole Blood 10/08/2024 5:36 AM EDT 10/08/2024 5:53 AM EDT Narrative [facility] - 10/08/2024 6:41 AM EDT Peripheral blood smear was scanned per review criteria approved by the laboratory chief medical officer. us Eileen Schroeder MD, PhD LAB BLOOD ORDERABLES Final Result Performing Organization Address City/[facility]/ZIP Co de Phone Number [facility] [address] * Vancomycin, random (10/08/2024 5:36 AM EDT) Vancomycin Random 16.0 ug/mL 10/08/2024 6:20 AM EDT [facility] Comment:Reference range not established for this test. Plasma 10/08/2024 5:36 AM EDT 10/08/2024 5:52 AM EDT us Jodi Ortiz PharmD LAB BLOOD ORDERABLES Final Result Performing Organization Address [facility] Co de Phone Number [facility] [address] * (ABNORMAL) Renal Function Panel w/EGFR (10/08/2024 5:36 AM EDT) Sodium 135 133 - 146 mmol/L 10/08/2024 6:25 AM EDT [facility] Potassium 3.2(L) 3.5 - 5.3 mmol/L 10/08/2024 6:25 AM EDT [facility] Chloride 106 98 - 110 mmol/L 10/08/2024 6:25 AM EDT [facility] CO2 17(L) 21 - 33 mmol/L 10/08/2024 6:25 AM EDT [facility] Anion Gap 12 3 - 16 mmol/L 10/08/2024 6:25 AM EDT [facility] BUN 61(H) 7 - 25 mg/dL 10/08/2024 6:25 AM EDT [facility] Creatinine 3.10(H) 0.60 - 1.30 mg/dL 10/08/2024 6:25 AM EDT [facility] Glucose 106(H) 70 - 100 mg/dL 10/08/2024 6:25 AM EDT [facility] Calcium 9.0 8.6 - 10.3 mg/dL 10/08/2024 6:25 AM EDT [facility] Phosphorus 4.0 2.1 - 4.7 mg/dL 10/08/2024 6:25 AM EDT [facility] Albumin 3.5 3.5 - 5.7 g/dL 10/08/2024 6:25 AM EDT [facility] Osmolality, Calculated 298 278 - 305 mOsm/kg 10/08/2024 6:25 AM EDT [facility] EGFR 25 10/08/2024 6:25 AM EDT [facility] Comment:As of 2021, the [...] MD, PhD LAB BLOOD ORDERABLES Final Result [facility] [address] [place] [address], [facility] * Urine Drug Confirmation (10/07/2024 10:50 PM EDT) BARBITURATES NOT PRESENT 10/09/2024 1:33 PM EDT [facility] BENZODIAZEPINES PRESENT 1:33 PM EDT [facility] Nordiazepam 3 ng/mL 10/09/2024 1:33 PM EDT [facility] Temazepam 6 ng/mL 10/09/2024 1:33 PM EDT [facility] CANNABINOIDS NOT PRESENT 10/09/2024 1:33 PM EDT [facility] METAL ROOFING MECHANIC STIMULANTS NOT PRESENT 1:33 PM EDT [facility] OPIOID ANALGESICS PRESENT 025 1:33 PM EDT [facility] Oxycodone 300 ng/mL 10/09/2024 1:33 PM EDT [facility] Oxymorphone 32 ng/mL 10/09/2024 1:33 PM EDT [facility] Tramadol >1000 ng/mL 10/09/2024 1:33 PM EDT [facility] OPIOID ANTAGONISTS NOT PRESENT 10/09 1:33 PM EDT [facility] SEDATIVES/MUSCLE RELAXANTS NOT PRESENT 10/09/2024 1:33 PM EDT [facility] TRICYCLIC ANTIDEPRESSANTS NOT PRESENT 10/09/2024 1:33 PM EDT [facility] Urine 10/07/2024 10:5 0 PM EDT 10/08/2024 3:00 AM EDT Gerri Peterson MD URINE ORDERABLES Final Result Performing Organization Address City/State/[facility] Co de Phone Number [facility] [address] * Giardia Cryptosporidium Antigens (10/07/2024 10:50 PM EDT) Cryptosporidium Ag Negative Negative 2024 7:59 AM EDT [facility] Giardia Ag Negative Negative 10/08/2024 7:59 AM EDT [facility] Comment: Detection of Giardia and Cryptosporidium antigen is more sensitive and specific than microscopy. Because antigens are shed continuously, repeat testing is rarely warranted. Feces 10/07/2024 10:5 0 PM EDT 10/08/2024 1:53 AM EDT Comment:F us Bisi Hernandez MICROBIOLOGY - GENERAL ORDERABLE S Final Result [facility] [address] [place] [address], [facility] * (ABNORMAL) Urine Drug Screen Reflex to Confirmation (10/07/2024 10:50 PM EDT) Amphetamine, 500 ng/mL Cutoff Negative Negative 10/08/2024 3:00 AM EDT [facility] Barbiturates UR, 300 ng/mL Cutoff Negative Negative 10/08/2024 3:00 AM EDT [facility] Buprenorphine, 5 ng/mL Cutoff Negative Negative 10/08/2024 3:00 AM EDT [facility] Benzodiazepines UR, 300 ng/mL Cutoff Negative Negative 10/08/2024 3:00 AM EDT [facility] Cocaine UR, 300 ng/mL Cutoff Negative Negative 10/08/2024 3:00 AM EDT [facility] Methadone, UR, 300 ng/mL Cutoff Negative Negative 10/08/2024 3:00 AM EDT [facility] Opiates UR, 300 ng/mL Cutoff Negative Negative 10/08/2024 3:00 AM EDT [facility] Oxycodone, 100 ng/mL Cutoff Presumptive Positive(A) Negative 10/08/2024 3:00 AM EDT [facility] Tricyclic Antidepressants, 300 ng/mL Cutoff Negative Negative 10/08/2024 3:00 AM EDT [facility] Comment:This test has been d eveloped and its performance characteristics determined by [facility] which is certified under the [...] Cutoff Negative Negative 10/08/2024 3:00 AM EDT [facility] Comment:This is a screening method only and may be associated with false positive and/or false negative results. Results are not definitive without additional confirmatory testing by mass spectrometry. Fentanyl, 2 ng/mL Cutoff Negative Negative 10/08/2024 3:00 AM EDT [facility] Comment:This test has been d eveloped and its performance characteristics determined by [facility] which is certified under the [...] PM EDT 10/08/2024 2:08 AM EDT Narrative [facility] - 10/08/2024 3:00 AM EDT CONFIRMATION TO FOLLOW Gerri Peterson MD URINE ORDERABLES Final Result [facility] [address] [place] [address], [facility] * Comprehensive Drug Screen (10/07/2024 10:50 PM EDT) Creatinine, Ur CANCELED mg/dL 10/08/2024 7:09 AM EDT [facility] Comment:The released value 8 7.30 was canceled by YAQUELIN on 10/08/2024 07:09 BARBITURATES CANCELED [facility] TH LAB Butalbital CANCELED [facility] Phenobarbital [facility] Secobarbital CANCELED [facility] LAB BENZODIAZEPINES CANCELED H EALT LAB Alprazolam CANCELED [facility] Clonazepam CANCELED [facility] Diazepam CANCELED [facility] Alpha-Hydroxyalprazo mcknight CANCELED [facility] Lorazepam CANCELED [facility] Midazolam CANCELED [facility] Nordiazepam [facility] Oxazepam CANCELED [facility] Temazepam CANCELED [facility] CANNABINOIDS CANCELED [facility] TH LAB THC-COOH CANCELED [facility] METAL ROOFING MECHANIC STIMULANTS CANCELED HE ALTH LAB Cocaine Metabolite(benzoylec gonine) CANCELED [facility] Amphetamine [facility] Methamphetamine CANCELED [facility] EALT LAB MDA CANCELED [facility] MDEA CANCELED [facility] Phencyclindine (PCP) CANCELED [facility] OPIOID ANALGESICS CANCELED [facility] Heroin Metabolite(6-RAMONA) CANCELED [facility] Codeine CANCELED [facility] Morphine CANCELED [facility] Hydrocodone [facility] Hydromorphone CANCELED [facility] LT LAB Oxycodone CANCELED [facility] Oxymorphone [facility] Meperidine CANCELED [facility] Normeperidine [facility] Methadone CANCELED [facility] Methadone Metabolite (EDDP) CANCELED [facility] Tramadol CANCELED [facility] Fentanyl CANCELED [facility] Norfentanyl CANCELED [facility] Sufentanil CANCELED [facility] OPIOID ANTAGONISTS CANCELED [facility] LAB Buprenorphine CANCELED [facility] LT LAB Norbuprenorphine CANCELED [facility] Naltrexone CANCELED [facility] Naloxone CANCELED [facility] SEDATIVES/MUSCLE RELAXANTS CANCELED [facility] Carisoprodol CANCELED [facility] Meprobamate [facility] TRICYCLIC ANTIDEPRESSANTS CANCELED [facility] Amitriptyline CANCELED [facility] LAB Clomipramine CANCELED [facility] Desipramine [facility] Doxepin CANCELED [facility] Imipramine CANCELED [facility] Nortriptyline CANCELED [facility] Urine Creatinine CANCELED mg/dL [facility] Nitrite CANCELED [facility] Glutaraldehyde CANCELED [facility] ALTH LAB pH CANCELED 10/08/2024 7:09 AM EDT [facility] Comment:The released value 5 .6 was canceled by YAQUELIN on 10/08/2024 07:09 Specific [place] CANCELED 10/09/19 7:09 AM EDT [facility] Comment:The released value 1 .009 was canceled by YAQUELIN on 10/08/2024 07:09 Bleach CANCELED [facility] Pyridinium Chlorochromate CANCELED [facility] Urine 10/07/2024 10:5 0 PM EDT 10/08/2024 2:07 AM EDT Narrative [facility] - 10/08/2024 7:09 AM EDT See accn [id number] Gerri Peterson MD URINE ORDERABLES Edited Result - Final Performing Organization Address [facility]/ZIP Co de Phone Number [facility] [address] * Ova and Parasite Comprehensive w/ Giardia/Crypto (10/07/2024 10:50 PM EDT) Pathologist [facility] O & P Method: Concentration and Trichrome Stain [facility] Results No Amoeba, Ova, Or Parasites Seen. -- O and P examination of additional specimens is recommended only for symptomatic patients, immunosuppressed patients or those with an appropriate travel history. [facility] Feces FECES / Unknown 10/07/2024 1 0:50 PM EDT 10/08/2024 1:53 AM EDT Comment:F Bisi Hernandez DO MICROBIOLOGY - GENERAL ORDERABLE S Final Result Performing Organization Address [facility] Co de Phone Number [facility] [address] * Enteric Pathogen Panel (10/07/2024 10:50 PM EDT) Pathologist [facility] Campylobacter Group (C. ecoli, C. jejuni, C. trino) Not Detected Not Detected 10/08/2024 4:40 AM EDT [facility] Salmonella species Not Detected Not Detected 10/08/2024 4:40 AM EDT [facility] Shigella species Not Detected Not Detected 10/08/2024 4:40 AM EDT [facility] Vibrio Group (Vibrio cholerae, Vibrio parahaemolyticus) Not Detected Not Detected 10/08/2024 4:40 AM EDT [facility] Yersinia enterocolitica Not Detected Not Detected 10/08/2024 4:40 AM EDT [facility] Shiga toxin 1 Not Detected Not Detected 10/08/2024 4:40 AM EDT [facility] Shiga toxin 2 Not Detected Not Detected 10/08/2024 4:40 AM EDT [facility] Norovirus Not Detected Not Detected 10/08/2024 4:40 AM EDT [facility] Rotavirus Not Detected Not Detected 10/08/2024 4:40 AM EDT [facility] Comment: The Enteric Pathogen Panel [...] ORDERABLE S Final Result Performing Organization Address [facility]/ZIP Co de Phone Number [facility] [address] [facility] * Hepatitis C Antibody (10/07/2024 6:38 PM EDT) HCV Ab Nonreactive Nonreactive 10/07/2024 7:56 PM EDT [facility] Comment:Health Department no tified in accordance with reportable infectious disease guidelines. Serum 10/07/2024 6:38 PM EDT 10/07/2024 6:52 PM EDT Narrative [facility] - 10/07/2024 7:56 PM EDT Antibodies to HCV not detected; does not exclude the possibility of exposure to HCV. Gerri Peterson MD LAB BLOOD ORDERABLES Final Resu lt [facility] [address] [facility] * Hepatitis B Surface Antibody, Quantitati (10/07/2024 6:38 PM EDT) Hep B S Ab Nonreactive Nonreactive 10/07/2024 8:00 PM EDT [facility] HBSAB NUMBER 7.88 0.00 - 7.99 mIU/mL 10/07/2024 8:00 PM EDT [facility] Serum 10/07/2024 6:38 PM EDT 10/07/2024 6:52 PM EDT [facility] - 10/07/2024 8:00 PM EDT Individual is considered not immune to HBV infection. Result [facility] Gerri Peterson MD LAB BLOOD ORDERABLES Final Resu lt Performing Organization Address City/[facility] Co de Phone Number [facility] [address] [facility] * Hepatitis B surface antigen (10/07/2024 6:38 PM EDT) Hep B Surface Ag Nonreactive Nonreactive 10/07/2024 7:51 PM EDT [facility] Comment:Health Department no tified in accordance with reportable infectious disease guidelines. Serum 10/07/2024 6:38 PM EDT 10/07/2024 6:52 PM EDT [facility] - 10/07/2024 7:51 PM EDT Specimen is considered negative for HBsAg. Result [facility] Gerri Peterson MD LAB BLOOD ORDERABLES Final Resu lt Performing Organization Address [facility] Co de Phone Number [facility] [address] [facility]. [address] * Hepatitis A Antibody Total (10/07/2024 6:38 PM EDT) Anti-HAV Total (IgG + IgM) Nonreactive 10/07/2024 7:53 PM EDT [facility] Serum 10/07/2024 6:38 PM EDT 10/07/2024 6:52 PM EDT [facility] - 10/07/2024 7:53 PM EDT HAV antibodies not detected Result [facility] Gerri Peterson MD LAB BLOOD ORDERABLES Final Resu lt Performing Organization Address [facility] Co de Phone Number [facility] [address] [facility] * Hepatitis A IgM (10/07/2024 6:38 PM EDT) Hep A IgM Nonreactive Nonreactive 10/07/2024 7:46 PM EDT [facility] Serum 10/07/2024 6:38 PM EDT 10/07/2024 6:52 PM EDT [facility] - 10/07/2024 7:46 PM EDT IgM anti-HAV not detected. Does not exclude the possibility of exposure to or infection with HAV. Levels of IgM anti-HAV may be below the cut-off in early infection. us Gerri Peterson MD LAB BLOOD ORDERABLES Final Resu lt [facility] [address] * (ABNORMAL) Lipid Profile (10/07/2024 6:37 PM EDT) Non-HDL Cholesterol, Calculated See Note 0 - 129 mg/dL 10/07/2024 7:42 PM EDT [facility] Comment: Desirable: < 130 mg/dL Above Desirable: 130-159 mg/dL Borderline High: 160-189 mg/dL High: 190-219 mg/dL Very High: > 219 mg/dL Unable to calculate result either because contributing result(s) are outside of reportable range or are not available. Cholesterol, Total <25 0 - 200 mg/dL 10/07/2024 7:42 PM EDT [facility] Triglycerides 30 10 - 149 mg/dL 10/07/2024 7:42 PM EDT [facility] HDL 4(L) 60 - 92 mg/dL 10/07/2024 7:42 PM EDT [facility] Comment: LIPID PROFILE INTERPRETATION CHOLESTEROL,TOTAL(mg/dL) [...] Cholesterol See Note mg/dL 7:42 PM EDT [facility] Comment:Unable to calculate result either because contributing result(s) are outside of reportable range or are not available. Plasma 10/07/2024 6:37 PM EDT 10/07/2024 7:06 PM EDT [facility] - 10/07/2024 7:42 PM EDT LDL cholesterol calculated using the Friedewald equation. us Gerri Peterson MD LAB BLOOD ORDERABLES Final Resu lt [facility] [address] * (ABNORMAL) Alpha 1 Antitrypsin AAT Quant & Mutation (10/07/2024 6:37 PM EDT) A-1 Antitrypsin 99(L) 101 - 187 mg/dL 10/09/2024 4:28 AM EDT [facility] A-1 Antitrypsin Pheno Comment 10/10/2024 4:05 PM EDT [facility] Comment: A1A Phenotype is consistent with a heterozygous phenotype consisting of one M (normal) allele and one allele that cannot be identified at this time. The unknown allele is not consistent with Z (deficient), S (deficient), or F (deficient). MM Phenotype is considered to be normal , producing normal serum levels of jkviz-[id number] inhibitor and not associated with clinical disease. [...] PM EDT 10/10/2024 4:08 PM EDT Narrative [facility] - 10/10/2024 4:08 PM EDT PERFORMED AT: [facility] [address] [id number] DRY CELL BATTERY ASSEMBLER: Bassam Khalil, PhD PHONE: [phone] PERFORMED AT: [facility] [address] [id number] DRY CELL BATTERY ASSEMBLER: Mandy Abdul MD PHONE: [phone] Gerri Peterson MD LAB BLOOD ORDERABLES Final Resu lt Performing Organization Address [facility] Co de Phone Number [facility] [address] * (ABNORMAL) CMV IgG Antibody (10/07/2024 6:37 PM EDT) CMV IgG Positive(A ) Negative 10/07/2024 8:26 PM EDT [facility] CMV IGG NUM 8.40(H) 0.00 - 0.59 U/mL 10/07/2024 8:26 PM EDT [facility] Serum 10/07/2024 6:37 PM EDT 10/07/2024 6:50 PM EDT Gerri Peterson MD LAB BLOOD ORDERABLES Final Resu lt Performing Organization Address City/[facility]/ZIP Co de Phone Number [facility] [address] * HIV-1 and HIV-2 Antibodies w Reflex (10/07/2024 6:37 PM EDT) Pathologist [facility] HIV 1+2 AB/AGN Nonreactive Nonreactive 10/07/2024 7:54 PM EDT [facility] Serum 10/07/2024 6:37 PM EDT 10/07/2024 7:06 PM EDT Narrative [facility] - 10/07/2024 7:54 PM EDT \HIVRNR Gerri Peterson MD LAB BLOOD ORDERABLES Final Resu lt [facility] [address] [facility] * TSH (Thyroid Stimulating Hormone) (10/07/2024 6:37 PM EDT) Pathologist [facility] TSH 0.81 0.45 - 4.12 uIU/mL 10/07/2024 8:17 PM EDT [facility] Serum 10/07/2024 6:37 PM EDT 10/07/2024 6:50 PM EDT Gerri Peterson MD LAB BLOOD ORDERABLES Final Resu lt [facility] [address] * Katie-Watkins virus early antigen antibody, IgG (10/07/2024 6:37 PM EDT) Pathologist [facility] EBV Early Antigen Ab, IgG <9.0 0.0 - 8.9 U/mL 10/09/2024 2:16 PM EDT [facility] Comment: Negative < 9.0 Equivocal 9.0 - 10.9 Positive >10.9 Serum Frozen 10/07/2024 6:37 PM EDT 10/09/2024 3:07 PM EDT Narrative [facility] - 10/09/2024 3:07 PM EDT PERFORMED AT: [address] [id number] DRY CELL BATTERY ASSEMBLER: Bassam Khalil, PhD PHONE: [phone] Gerri Peterson MD LAB BLOOD ORDERABLES Final Resu lt Performing Organization Address [facility] de Phone Number [facility] [address] [place] [address] * (ABNORMAL) Varicella zoster antibody, IgG (10/07/2024 6:37 PM EDT) Pathologist [facility] Varicella IgG Positive( A) Negative S/CO 10/07/2024 8:34 PM EDT [facility] Comment:Result indicates the presence of detectable VZV IgG antibodies. A positive result is generally indicative of exposure to the pathogen or administration of specific immunoglobulins, but it is no indication of active infection or stage of disease. This test is not approved for determining vaccine-induced immunity to varicella zoster virus. VZV NUM 6.76(H) 0.00 - 0.99 S/CO 10/07/2024 8:34 PM EDT [facility] Serum 10/07/2024 6:37 PM EDT 10/07/2024 6:50 PM EDT Gerri Peterson MD LAB BLOOD ORDERABLES Final Resu lt Performing Organization Address [facility] Co de Phone Number [facility] [address] [place] [address] * Toxoplasma gondii antibody, IgG (10/07/2024 6:37 PM EDT) Pathologist [facility] Toxoplasma Gondii IgG <3.0 0.0 - 7.1 IU/mL 10/09/2024 7:53 AM EDT [facility] Comment: Negative <7.2 Equivocal 7.2 - 8.7 Positive >8.7 Serum 10/07/2024 6:37 PM EDT 10/09/2024 8:07 AM EDT Narrative [facility] - 10/09/2024 8:07 AM EDT PERFORMED AT: [facility] [address] [place], [place] [id number] DRY CELL BATTERY ASSEMBLER: Bassam Khalil, PhD PHONE: [phone] Gerri Peterson MD LAB BLOOD ORDERABLES Final Resu lt Performing Organization Address City/[facility]/ZIP Co de Phone Number [facility] [address] [facility]. [address] * Syphilis Screening (Trepia) (10/07/2024 6:37 PM EDT) Treponema Pallidum Negative Negative 10/07/2024 8:27 PM EDT [facility] Comment: No serological evidence of infection with Treponema pallidum (incubating or early primary syphilis cannot be excluded). Serum 10/07/2024 6:37 PM EDT 10/07/2024 6:50 PM EDT Gerri Peterson MD LAB BLOOD ORDERABLES Final Resu lt Performing Organization Address [facility] Co de Phone Number [facility] [address] [facility]. [address] * Strongyloides Ab (10/07/2024 6:37 PM EDT) Strongyloides Ab Negative Negative 10/11/19 11:51 AM EDT [facility] Serum 10/07/2024 6:37 PM EDT 10/10/2024 12:07 PM EDT Narrative [facility] - 10/10/2024 12:07 PM EDT PERFORMED AT: [address] [id number] DRY CELL BATTERY ASSEMBLER: Mandy Abdul MD PHONE: [phone] Gerri Peterson MD LAB BLOOD ORDERABLES Final Resu lt Performing Organization Address City/[facility]/ZIP Co de Phone Number [facility] [address] [facility]. [address] * Phosphatidylethanol Confirmation, B (10/07/2024 6:37 PM EDT) PETH 16:0/18.1 (POPETH) <10 Cutoff: 10 ng/mL 10/10/2024 10:42 AM EDT [facility] Comment: Phosphatidylethanol (PEth) homologues result [...] Cutoff: 10 ng/mL 10/10/2024 10:42 AM EDT [facility] Comment: PEth 16:0/18:2 (PLPEth) Reference ranges are not well established PEth Interpretation Negative. 10/10 10:42 AM EDT [facility] Comment: ADDITIONAL INFORMATION This report [...] Food and Drug Administration. Test Performed by: [facility] [address] Wool Puller: Kathy Ortiz Ph.D.; CLIA# [id number] Whole Blood 10/07/2024 6:37 PM EDT 10/10/2024 10:42 AM EDT us Gerri Peterson MD LAB BLOOD ORDERABLES Final Resu lt [facility] [address] [place] [address], [facility] * (ABNORMAL) MMR(IgG) Panel (Measles, Mumps, Rubella) (10/07/2024 6:37 PM EDT) Mumps IgG Positive 10/07/2024 8:26 PM EDT [facility] MUMPS IGG NUM 77.80(H) 0.0 - 8.9 U/mL 10/07/2024 8:26 PM EDT [facility] Rubella IgG Scr Positive 10/07/2024 8:28 PM EDT [facility] RUB NUM 3.04(H) 0.00 - 0.89 INDEX 10/07/2024 8:28 PM EDT [facility] Rubeola Ab, IgG Positive 10/07/2024 8:26 PM EDT [facility] RUB IGG NUM 192.00(H) 0.00 - 13.40 U/mL 10/07/2024 8:26 PM EDT [facility] Serum 10/07/2024 6:37 PM EDT 10/07/2024 6:50 PM EDT Narrative [facility] - 10/07/2024 8:28 PM EDT [...] ORDERABLES Final Resu lt Performing Organization Address City/[facility]/ZIP Co de Phone Number [facility] [address] * IgA (10/07/2024 6:37 PM EDT) IgA 227.0 70.0 - 400.0 mg/dL 10/08/2024 11:07 AM EDT [facility] Comment:Please interpret the se findings in conjunction with clinical findings, protein electrophoresis, and immunotyping/immunofixation results. Serum 10/07/2024 6:37 PM EDT 10/07/2024 6:50 PM EDT Gerri Peterson MD LAB BLOOD ORDERABLES Final Resu lt [facility] [address] * Ethanol, Serum (10/07/2024 6:37 PM EDT) Ethanol <10 0 - 10 mg/dL 10/07/2024 8:36 PM EDT [facility] Serum 10/07/2024 6:37 PM EDT 10/07/2024 6:50 PM EDT Result [facility] Gerri Peterson MD LAB BLOOD ORDERABLES Final Resu lt [facility] [address] [facility]. [address] * ABO/Rh - Second (10/07/2024 6:37 PM EDT) ABO Grouping O 10/07/2024 7:16 PM EDT [facility] Rh Type Positive 10/07/2024 7:16 PM EDT [facility] Blood 10/07/2024 6:37 PM EDT 10/07/2024 6:56 PM EDT Narrative [facility] - 10/07/2024 7:18 PM EDT This is not a duplicate order. It is required that ABO be drawn twice for LIVER TRANSPLANT Result [facility] Gerri Peterson MD BLOOD BANK TEST ORDERABLES Denisse l Result [facility] [address] [facility]. [address] * ABO/Rh- Initial (10/07/2024 6:37 PM EDT) ABO Grouping O 10/07/2024 7:59 PM EDT [facility] Rh Type Positive 10/07/2024 7:59 PM EDT [facility] Blood 10/07/2024 6:37 PM EDT 10/07/2024 7:25 PM EDT Result [facility] Gerri Peterson MD BLOOD BANK TEST ORDERABLES Denisse l Result [facility] [address] [place] [address], [facility] * X-ray Mandible minimum 4-views (10/07/2024 6:19 [...] EXAM: US ABDOMEN COMPLETE EXAM: US DUPLEX [id number] COMPLETE INDICATION: elevated bilirubin COMPARISON: Ultrasound and [...] EXAM: US ABDOMEN COMPLETE EXAM: US DUPLEX [id number] COMPLETE INDICATION: elevated bilirubin COMPARISON: Ultrasound and [...] US ORDERABLES Final Result * US Duplex Rck-Boe-Hulbdsk Comp (10/07/2024 3:48 PM EDT) Anatomical Region [...] EXAM: US ABDOMEN COMPLETE EXAM: US DUPLEX [id number] COMPLETE INDICATION: elevated bilirubin COMPARISON: Ultrasound and [...] EXAM: US ABDOMEN COMPLETE EXAM: US DUPLEX [id number] COMPLETE INDICATION: elevated bilirubin COMPARISON: Ultrasound and [...] [facility] Co de Phone Number [facility] [address] * (ABNORMAL) Hepatic Function Panel (10/07/2024 6:00 AM EDT) Pathologist [facility] Total Bilirubin 9.7(H) 0.0 - 1.5 mg/dL 10/07/2024 7:10 AM EDT [facility] Bilirubin, Direct 5.21(H) 0.00 - 0.40 mg/dL 10/07/2024 7:10 AM EDT [facility] AST 39 13 - 39 U/L 10/07/2024 7:10 AM EDT [facility] ALT 18 7 - 52 U/L 10/07/2024 7:10 AM EDT [facility] Alkaline Phosphatase 98 36 - 125 U/L 10/07/2024 7:10 AM EDT [facility] Total Protein 4.8(L) 6.4 - 8.9 g/dL 10/07/2024 7:10 AM EDT [facility] Albumin 3.6 3.5 - 5.7 g/dL 10/07/2024 7:10 AM EDT [facility] Bilirubin, Indirect 4.49(H) 0.00 - 1.10 mg/dL 10/07/2024 7:10 AM EDT [facility] Plasma 10/07/2024 6:00 AM EDT 10/07/2024 6:39 AM EDT us Eileen Schroeder MD, PhD LAB BLOOD ORDERABLES Final Result Performing Organization Address City/[facility]/ZIP Co de Phone Number [facility] [address] [facility]. [address] * Magnesium (10/07/2024 6:00 AM EDT) Magnesium 1.7 1.5 - 2.5 mg/dL 10/07/2024 7:10 AM EDT [facility] Plasma 10/07/2024 6:00 AM EDT 10/07/2024 6:39 AM EDT us Eileen Schroeder MD, PhD LAB BLOOD ORDERABLES Final Result Performing Organization Address [facility] de Phone Number [facility] [address] [facility]. [address] * (ABNORMAL) CBC (10/07/2024 6:00 AM EDT) WBC 3.3(L) 3.8 - 10.8 10E3/uL 10/07/2024 7:55 AM EDT [facility] RBC 2.06(L) 4.20 - 5.80 10E6/uL 10/07/2024 7:55 AM EDT [facility] Hemoglobin 7.4(L) 13.2 - 17.1 g/dL 10/07/2024 7:55 AM EDT [facility] Hematocrit 21.5(L) 38.5 - 50.0 % 10/07/2024 7:55 AM EDT [facility] MCV 104.1(H) 80.0 - 100.0 fL 10/07/2024 7:55 AM EDT [facility] MCH 35.8(H) 27.0 - 33.0 pg 10/07/2024 7:55 AM EDT [facility] MCHC 34.4 32.0 - 36.0 g/dL 10/07/2024 7:55 AM EDT [facility] RDW 17.5(H) 11.0 - 15.0 % 10/07/2024 7:55 AM EDT [facility] Platelets 35(L) 140 - 400 10E3/uL 10/07/2024 7:55 AM EDT [facility] Comment: Specimen checked for clots. None detected. Slide Reviewed for PLT Clumps. None Seen. _Platelet Morphology Normal _Platelets Appear Decreased Platelet Estimate Decreased 10/07/2024 7:55 AM EDT [facility] MPV 8.0 7.5 - 11.5 fL 10/07/2024 7:55 AM EDT [facility] Whole Blood 10/07/2024 6:00 AM EDT 10/07/2024 6:40 AM EDT [facility] - 10/07/2024 7:55 AM EDT Peripheral blood smear was scanned per review criteria approved by the laboratory chief medical officer. Eileen Schroeder MD, PhD LAB BLOOD ORDERABLES Final Result Performing Organization Address City/[facility]/ZIP Co de Phone Number [facility] [address] [place] [address] * AFP Tumor Marker (10/07/2024 6:00 AM EDT) AFP-Tumor Marker 2.0 0.0 - 9.0 ng/mL 10/07/2024 7:11 AM EDT [facility] Serum 10/07/2024 6:00 AM EDT 10/07/2024 6:39 AM EDT [facility] - 10/07/2024 7:11 AM EDT The testing method for AFP is a chemiluminescent immunoassay manufactured by [employer] Concentrations of AFP obtained by different assay methods or kits may vary and cannot be used interchangeably. AFP results cannot be interpreted as absolute evidence of the presence or absence of malignant disease. us Shila Rivera MD LAB BLOOD ORDERABLES Final Resul t [facility] [address] [place] [address] * Vancomycin, random (10/07/2024 6:00 AM EDT) Vancomycin Random 21.1 ug/mL 10/07/2024 7:08 AM EDT [facility] Comment:Reference range not established for this test. Plasma 10/07/2024 6:00 AM EDT 10/07/2024 6:39 AM EDT us Kiet Gardiner PharmD LAB BLOOD ORDERABLES Final Re sult [facility] [address] [id number] * (ABNORMAL) Renal Function Panel w/EGFR (10/07/2024 6:00 AM EDT) Sodium 132(L) 133 - 146 mmol/L 10/07/2024 7:10 AM EDT [facility] Potassium 3.9 3.5 - 5.3 mmol/L 10/07/2024 7:10 AM EDT [facility] Chloride 103 98 - 110 mmol/L 10/07/2024 7:10 AM EDT [facility] CO2 19(L) 21 - 33 mmol/L 10/07/2024 7:10 AM EDT [facility] Anion Gap 10 3 - 16 mmol/L 10/07/2024 7:10 AM EDT [facility] BUN 64(H) 7 - 25 mg/dL 10/07/2024 7:10 AM EDT [facility] Creatinine 3.38(H) 0.60 - 1.30 mg/dL 10/07/2024 7:10 AM EDT [facility] Glucose 111(H) 70 - 100 mg/dL 10/07/2024 7:10 AM EDT [facility] Calcium 9.1 8.6 - 10.3 mg/dL 10/07/2024 7:10 AM EDT [facility] Phosphorus 4.2 2.1 - 4.7 mg/dL 10/07/2024 7:10 AM EDT [facility] Albumin 3.6 3.5 - 5.7 g/dL 10/07/2024 7:10 AM EDT [facility] Osmolality, Calculated 293 278 - 305 mOsm/kg 10/07/2024 7:10 AM EDT [facility] EGFR 22 10/07/2024 7:10 AM EDT [facility] Comment:As of 2021, the [...] BLOOD ORDERABLES Final Result Performing Organization Address City/[facility]/ZIP Co de Phone Number [facility] [address] * Osmolality (10/06/2024 2:50 PM EDT) Osmolality, Measured 304 278 - 305 mOsm/kg 10/06/2024 3:49 PM EDT [facility] Serum 10/06/2024 2:50 PM EDT 10/06/2024 2:56 PM EDT Chari Vanegas MD LAB BLOOD ORDERABLES Final Resul t Performing Organization Address City/[facility]/ZIP Co de Phone Number [facility] [address] [facility]. [address] * CT Head WO contrast (10/06/2024 [...] 4:50 PM EDT Eileen Schroeder MD, PhD IM CT ORDERABLES [facility] al Result * Chloride, urine, random (10/06/2024 1:25 PM EDT) Chloride, Ur <15 mmol/L 10/06/2024 1:56 PM EDT [facility] Comment:Reference range not established for this test. Urine 10/06/2024 1:25 PM EDT 10/06/2024 1:32 PM EDT us Chari Vanegas MD URINE ORDERABLES Final Result Performing Organization Address [facility] Co de Phone Number [facility] [address] [facility]. [address] * Potassium, urine, random (10/06/2024 1:25 PM EDT) Potassium Urine Random 50.0 mmol/L 10/06/2024 1:56 PM EDT [facility] Comment:Reference range not established for this test. Urine 10/06/2024 1:25 PM EDT 10/06/2024 1:32 PM EDT us Chari Vanegas MD URINE ORDERABLES Final Result Performing Organization Address [facility] Co de Phone Number [facility] [address] [facility] * Sodium, urine, random (10/06/2024 1:25 PM EDT) Sodium, Ur <10 mmol/L 10/06/2024 1:56 PM EDT [facility] Comment:Reference range not established for this test. Urine 10/06/2024 1:25 PM EDT 10/06/2024 1:32 PM EDT us Chari Vanegas MD URINE ORDERABLES Final Result Performing Organization Address [facility] de Phone Number [facility] [address] [facility] * Creatinine, Urine, Random (10/06/2024 1:25 PM EDT) Creatinine, Urine 87.40 mg/dL 10/06/2024 1:56 PM EDT [facility] Comment:Reference range not established for this test. Urine 10/06/2024 1:25 PM EDT 10/06/2024 1:32 PM EDT us Chari Vanegas MD URINE ORDERABLES Final Result Performing Organization Address City/[facility]/ZIP Co de Phone Number [facility] [address] * Osmolality, Urine (10/06/2024 1:25 PM EDT) Osmolality, Ur 386 50 - 1,200 mOsm/kg 10/06/2024 1:55 PM EDT [facility] Urine 10/06/2024 1:25 PM EDT 10/06/2024 1:32 PM EDT us Chari Vanegas MD URINE ORDERABLES Final Result Performing Organization Address [facility] de Phone Number [facility] [address] [facility] * Urine Drug Confirmation (10/06/2024 11:51 [...] PRESENT 10/09/2024 3:23 PM EDT [facility] METAL ROOFING MECHANIC STIMULANTS NOT PRESENT 3:23 PM EDT [facility] OPIOID ANALGESICS PRESENT 025 3:23 PM EDT [facility] Oxycodone 329 ng/mL 10/09/2024 3:23 PM EDT [facility] Oxymorphone 61 ng/mL 10/09/2024 3:23 PM EDT [facility] Tramadol >1000 ng/mL 10/09/2024 3:23 PM EDT [facility] OPIOID ANTAGONISTS NOT PRESENT 10/09 3:23 PM EDT [facility] SEDATIVES/MUSCLE RELAXANTS NOT PRESENT 10/09/2024 3:23 PM EDT [facility] TRICYCLIC ANTIDEPRESSANTS NOT PRESENT 10/09/2024 3:23 PM EDT [facility] Urine 10/06/2024 11:5 1 AM EDT 10/06/2024 1:13 PM EDT Bisi Hernandez DO URINE ORDERABLES Final Result [facility] [address] [place] [address], [facility] * (ABNORMAL) Urine Drug Screen Reflex to Confirmation (10/06/2024 11:51 AM EDT) Amphetamine, 500 ng/mL Cutoff Negative Negative 10/06/2024 1:13 PM EDT [facility] Barbiturates UR, 300 ng/mL Cutoff Negative Negative 10/06/2024 1:13 PM EDT [facility] Buprenorphine, 5 ng/mL Cutoff Negative Negative 10/06/2024 1:13 PM EDT [facility] Benzodiazepines UR, 300 ng/mL Cutoff Negative Negative 10/06/2024 1:13 PM EDT [facility] Cocaine UR, 300 ng/mL Cutoff Negative Negative 10/06/2024 1:13 PM EDT [facility] Methadone, UR, 300 ng/mL Cutoff Negative Negative 10/06/2024 1:13 PM EDT [facility] Opiates UR, 300 ng/mL Cutoff Negative Negative 10/06/2024 1:13 PM EDT [facility] Oxycodone, 100 ng/mL Cutoff Presumptive Positive(A) Negative 10/06/2024 1:13 PM EDT [facility] Tricyclic Antidepressants, 300 ng/mL Cutoff Negative Negative 10/06/2024 1:13 PM EDT [facility] Comment:This test has been d eveloped and its performance characteristics determined by [facility] which is certified under the [...] Cutoff Negative Negative 10/06/2024 1:13 PM EDT [facility] Comment:This is a screening method only and may be associated with false positive and/or false negative results. Results are not definitive without additional confirmatory testing by mass spectrometry. Fentanyl, 2 ng/mL Cutoff Negative Negative 10/06/2024 1:13 PM EDT [facility] Comment:This test has been d eveloped and its performance characteristics determined by [facility] which is certified under the [...] AM EDT 10/06/2024 11:58 AM EDT Narrative [facility] - 10/06/2024 1:13 PM EDT CONFIRMATION TO FOLLOW Localistella DO URINE ORDERABLES Final Result Performing Organization Address City/[facility]/ZIP Co de Phone Number [facility] [address] [place] [address] * Chloride, urine, random (10/06/2024 11:51 AM EDT) Chloride, Ur <15 mmol/L 10/06/2024 1:13 PM EDT [facility] Comment:Reference range not established for this test. Urine 10/06/2024 11:5 1 AM EDT 10/06/2024 11:57 AM EDT Localistella DO URINE ORDERABLES Final Result [facility] [address] * Potassium, urine, random (10/06/2024 11:51 AM EDT) Potassium Urine Random 49.0 mmol/L 10/06/2024 1:13 PM EDT [facility] Comment:Reference range not established for this test. Urine 10/06/2024 11:5 1 AM EDT 10/06/2024 11:57 AM EDT Bisi Akella DO URINE ORDERABLES Final Result Performing Organization Address City/[facility]/ZIP Co de Phone Number [facility] [address] [facility]. [address] * Sodium, urine, random (10/06/2024 11:51 AM EDT) Sodium, Ur <10 mmol/L 10/06/2024 1:13 PM EDT [facility] Comment:Reference range not established for this test. Urine 10/06/2024 11:5 1 AM EDT 10/06/2024 11:57 AM EDT Bisi Wakieana maría DO URINE ORDERABLES Final Result Performing Organization Address [facility] Co de Phone Number [facility] [address] * Urinalysis w/Rfl to Microscopic (10/06/2024 11:51 AM EDT) Color, UA Yellow Yellow,Straw 10/06/2024 12:25 PM EDT [facility] Clarity, UA Clear Clear 10/06/2024 12:25 PM EDT [facility] Specific [place], UA 1.014 1.005 - 1.035 10/06/2024 12:25 PM EDT [facility] pH, UA 6.0 5.0 - 8.0 10/06/2024 12:25 PM EDT [facility] Protein, UA Negative Negative mg/dL 10/06/2024 12:25 PM EDT [facility] Glucose, UA Negative Negative mg/dL 10/06/2024 12:25 PM EDT [facility] Ketones, UA Negative Negative mg/dL 10/06/2024 12:25 PM EDT [facility] Bilirubin, UA Negative Negative 10/06/2024 12:25 PM EDT [facility] Blood, UA Negative Negative 10/06/2024 12:25 PM EDT [facility] Nitrite, UA Negative Negative 10/06/2024 12:25 PM EDT [facility] Urobilinogen, UA <2.0 0.2 - 1.9 mg/dL 10/06/2024 12:25 PM EDT [facility] Leukocyte Esterase, UA Negative Negative 10/06/2024 12:25 PM EDT [facility] Urine 10/06/2024 11:5 1 AM EDT 10/06/2024 11:57 AM EDT Narrative [facility] - 10/06/2024 12:25 PM EDT Microscopic testing is not performed when the dipstick is negative for blood, leukocyte, protein and nitrite. Bisi Hernandez DO URINE ORDERABLES Final Result Performing Organization Address [facility]/ZIP Co de Phone Number [facility] [address] * Lactic Acid, STAT (10/06/2024 7:38 AM EDT) Lactate 0.9 0.5 - 2.2 mmol/L 10/06/2024 8:05 AM EDT [facility] Plasma 10/06/2024 7:38 AM EDT 10/06/2024 7:42 AM EDT Chari Vanegas MD LAB BLOOD ORDERABLES Final Resul t [facility] [address] * (ABNORMAL) CBC, STAT (10/06/2024 7:37 AM EDT) WBC 5.6 3.8 - 10.8 10E3/uL 10/06/2024 8:22 AM EDT [facility] RBC 2.50(L) 4.20 - 5.80 10E6/uL 10/06/2024 8:22 AM EDT [facility] Hemoglobin 9.0(L) 13.2 - 17.1 g/dL 10/06/2024 8:22 AM EDT [facility] Hematocrit 25.3(L) 38.5 - 50.0 % 10/06/2024 8:22 AM EDT [facility] MCV 101.2(H) 80.0 - 100.0 fL 10/06/2024 8:22 AM EDT [facility] MCH 36.0(H) 27.0 - 33.0 pg 10/06/2024 8:22 AM EDT [facility] MCHC 35.6 32.0 - 36.0 g/dL 10/06/2024 8:22 AM EDT [facility] RDW 17.7(H) 11.0 - 15.0 % 10/06/2024 8:22 AM EDT [facility] Platelets 52(L) 140 - 400 10E3/uL 10/06/2024 8:22 AM EDT [facility] Comment: Specimen checked for clots. None detected. Slide Reviewed for PLT Clumps. None Seen. MPV 8.2 7.5 - 11.5 fL 10/06/2024 8:22 AM EDT [facility] Whole Blood 10/06/2024 7:37 AM EDT 10/06/2024 7:43 AM EDT Chari Vanegas MD LAB BLOOD ORDERABLES Final Resul t [facility] [address] [place] [address], [facility] * (ABNORMAL) Comprehensive Metabolic Panel (10/06/2024 7:37 AM EDT) Sodium 129(L) 133 - 146 mmol/L 10/06/2024 8:16 AM EDT [facility] Potassium 4.4 3.5 - 5.3 mmol/L 10/06/2024 8:16 AM EDT [facility] Chloride 100 98 - 110 mmol/L 10/06/2024 8:16 AM EDT [facility] CO2 18(L) 21 - 33 mmol/L 10/06/2024 8:16 AM EDT [facility] Anion Gap 11 3 - 16 mmol/L 10/06/2024 8:16 AM EDT [facility] BUN 62(H) 7 - 25 mg/dL 10/06/2024 8:16 AM EDT [facility] Creatinine 3.40(H) 0.60 - 1.30 mg/dL 10/06/2024 8:[facility] Glucose 98 70 - 100 mg/dL 10/06/2024 8:16 AM EDT [facility] Calcium 9.5 8.6 - 10.3 mg/dL 10/06/2024 8:16 AM T [facility] Total Bilirubin 14.3(H) 0.0 - 1.5 mg/dL 10/06/2024 8:16 AM EDT [facility] AST 57(H) 13 - 39 U/L 10/06/2024 8:16 AM [facility] ALT 29 7 - 52 U/L 10/06/2024 8:16 AM [facility] Alkaline Phosphatase 158(H) 36 - 125 U/L 10/06/2024 8:16 AM [facility] Total Protein 5.6(L) 6.4 - 8.9 g/dL 10/06/2024 8:16 AM [facility] Albumin 3.6 3.5 - 5.7 g/dL 10/06/2024 8:16 AM [facility] Osmolality, Calculated 286 278 - 305 mOsm/kg 10/06/2024 8:16 AM [facility] EGFR 22 10/06/2024 8:16 AM [facility] Comment:As of 2021, the estimated GFR [...] MD LAB BLOOD ORDERABLES Final Resul t [facility] [address] [place] [id number], [facility] * (ABNORMAL) Venous Blood Gas, Line/Syringe, STAT (10/06/2024 7:37 AM EDT) PH-Line Draw 7.27(L) 7.32 - 7.42 10/06/2024 7:46 AM EDT [facility] PCO2-Line Draw 36(L) 41 - 51 mm Hg 10/06/2024 7:46 AM EDT [facility] PO2-Line Draw 44(H) 25 - 40 mm Hg 10/06/2024 7:46 AM EDT [facility] HCO3-Line Draw 17(L) 24 - 28 mmol/L 10/06/2024 7:46 AM EDT [facility] CO2 Content-Line Draw 18(L) 25 - 29 mmol/L 10/06/2024 7:46 AM EDT [facility] Base Excess-Line Draw -9.6(L) -2.0 - 3.0 mmol/L 10/06/2024 7:46 AM EDT [facility] %HBO2-Line Draw 69.8 40.0 - 70.0 % 10/06/2024 7:46 AM EDT [facility] Carboxyhgb-Ludivina e Draw 0.7 % 10/06/2024 7:46 AM EDT [facility] Comment: CARBOXYHEMOGLOBIN (CO) REFERENCE RANGES: Non-Smokers: <2 % Smokers: <8 % TOXIC: >20 % Methemoglobin- Line Draw 0.3 0.0 - 1.5 % 10/06/2024 7:46 AM EDT [facility] Reduced Hemoglobin-Ludivina e Draw 29.2(H) 0.0 - 5.0 % 10/06/2024 7:46 AM EDT [facility] Venous, Line Draw 10/06/2024 7:37 AM EDT 10/06/2024 7:43 AM EDT Chari Vanegas MD LAB BLOOD ORDERABLES Final Resul t [facility] [address] [place] [address], [facility] * (ABNORMAL) Venous Blood Gas, Line/Syringe, STAT (10/06/2024 4:03 AM EDT) PH-Line Draw 7.21(L) 7.32 - 7.42 10/06/2024 4:16 AM EDT [facility] PCO2-Line Draw 41 41 - 51 mm Hg 10/06/2024 4:16 AM EDT [facility] PO2-Line Draw 32 25 - 40 mm Hg 10/06/2024 4:16 AM EDT [facility] HCO3-Line Draw 16(L) 24 - 28 mmol/L 10/06/2024 4:16 AM EDT [facility] CO2 Content-Line Draw 18(L) 25 - 29 mmol/L 10/06/2024 4:16 AM EDT [facility] Base Excess-Line Draw -10.8(L) -2.0 - 3.0 mmol/L 10/06/2024 4:16 AM EDT [facility] %HBO2-Line Draw 47.5 40.0 - 70.0 % 10/06/2024 4:16 AM EDT [facility] Carboxyhgb-Ludivina e Draw 2.0 % 10/06/2024 4:16 AM EDT [facility] Comment: CARBOXYHEMOGLOBIN (CO) REFERENCE RANGES: Non-Smokers: <2 % Smokers: <8 % TOXIC: >20 % Methemoglobin- Line Draw 0.7 0.0 - 1.5 % 10/06/2024 4:16 AM EDT [facility] Reduced Hemoglobin-Ludivina e Draw 49.8(H) 0.0 - 5.0 % 10/06/2024 4:16 AM EDT [facility] Venous, Line Draw 10/06/2024 4:03 AM EDT 10/06/2024 4:12 AM EDT Bisi Hernandez DO LAB BLOOD ORDERABLES Final Resul t Performing Organization Address City/[facility] de Phone Number [facility] [address] * (ABNORMAL) Protime-INR (10/06/2024 4:01 AM EDT) Protime 21.3(H) 12.1 - 15.1 seconds 10/06/2024 4:40 AM EDT [facility] INR 1.8(H) 0.9 - 1.1 10/06/2024 4:40 AM EDT [facility] Comment: RECOMMENDED THERAPEUTIC RANGES USING INR : Stable oral anticoagulant therapy: 2.0 - 3.0 Mechanical prosthetic heart valve: 2.5 - 3.5 Recurrent acute myocardial infarction: 2.5 - 3.5 Plasma 10/06/2024 4:01 AM EDT 10/06/2024 4:11 AM EDT Bisi Hernandez [facility] BLOOD ORDERABLES Final Resul t Performing Organization Address [facility] Co de Phone Number [facility] [address] [facility] * (ABNORMAL) Hepatic Function Panel, AM (10/06/2024 4:01 AM EDT) Total Bilirubin 14.7(H) 0.0 - 1.5 mg/dL 10/06/2024 4:57 AM EDT [facility] Bilirubin, Direct 7.08(H) 0.00 - 0.40 mg/dL 10/06/2024 4:57 AM EDT [facility] AST 60(H) 13 - 39 U/L 10/06/2024 4:57 AM EDT [facility] ALT 31 7 - 52 U/L 10/06/2024 4:57 AM EDT [facility] Alkaline Phosphatase 162(H) 36 - 125 U/L 10/06/2024 4:57 AM EDT [facility] Total Protein 5.3(L) 6.4 - 8.9 g/dL 10/06/2024 4:57 AM EDT [facility] Albumin 3.4(L) 3.5 - 5.7 g/dL 10/06/2024 4:57 AM EDT [facility] Bilirubin, Indirect 7.62(H) 0.00 - 1.10 mg/dL 10/06/2024 4:57 AM EDT [facility] Plasma 10/06/2024 4:01 AM EDT 10/06/2024 4:22 AM EDT [employer] DO LAB BLOOD ORDERABLES Final Resul t Performing Organization Address City/[facility]/ZIP Co de Phone Number [facility] [address] [facility] * Magnesium (10/06/2024 4:01 AM EDT) Magnesium 1.8 1.5 - 2.5 mg/dL 10/06/2024 4:57 AM EDT [facility] Plasma 10/06/2024 4:01 AM EDT 10/06/2024 4:22 AM EDT [facility] LAB BLOOD ORDERABLES Final Resul t Performing Organization Address [facility] de Phone Number [facility] [address] [facility] * (ABNORMAL) Renal Function Panel w/EGFR (10/06/2024 4:01 AM EDT) Sodium 129(L) 133 - 146 mmol/L 10/06/2024 4:57 AM EDT [facility] Potassium 4.7 3.5 - 5.3 mmol/L 10/06/2024 4:57 AM EDT [facility] Chloride 100 98 - 110 mmol/L 10/06/2024 4:57 AM EDT [facility] CO2 16(L) 21 - 33 mmol/L 10/06/2024 4:57 AM EDT [facility] Anion Gap 13 3 - 16 mmol/L 10/06/2024 4:57 AM EDT [facility] BUN 61(H) 7 - 25 mg/dL 10/06/2024 4:57 AM EDT [facility] Creatinine 3.49(H) 0.60 - 1.30 mg/dL 10/06/2024 4:57 AM EDT [facility] Glucose 104(H) 70 - 100 mg/dL 10/06/2024 4:57 AM EDT [facility] Calcium 9.2 8.6 - 10.3 mg/dL 10/06/2024 4:57 AM EDT [facility] Phosphorus 5.3(H) 2.1 - 4.7 mg/dL 10/06/2024 4:57 AM EDT [facility] Albumin 3.4(L) 3.5 - 5.7 g/dL 10/06/2024 4:57 AM EDT [facility] Osmolality, Calculated 286 278 - 305 mOsm/kg 10/06/2024 4:57 AM EDT [facility] EGFR 22 10/06/2024 4:57 AM EDT [facility] Comment:As of 2021, the [...] DO LAB BLOOD ORDERABLES Final Resul t [facility] [address] [facility] [place] [address], [facility] * (ABNORMAL) CBC (10/06/2024 4:01 AM EDT) WBC 7.6 3.8 - 10.8 10E3/uL 10/06/2024 5:16 AM EDT [facility] RBC 2.77(L) 4.20 - 5.80 10E6/uL 10/06/2024 5:16 AM EDT [facility] Hemoglobin 10.1(L) 13.2 - 17.1 g/dL 10/06/2024 5:16 AM EDT [facility] Hematocrit 28.4(L) 38.5 - 50.0 % 10/06/2024 5:16 AM EDT [facility] MCV 102.4(H) 80.0 - 100.0 fL 10/06/2024 5:16 AM EDT [facility] MCH 36.4(H) 27.0 - 33.0 pg 10/06/2024 5:16 AM EDT [facility] MCHC 35.5 32.0 - 36.0 g/dL 10/06/2024 5:16 AM EDT [facility] RDW 18.0(H) 11.0 - 15.0 % 10/06/2024 5:16 AM EDT [facility] Platelets 53(L) 140 - 400 10E3/uL 10/06/2024 5:16 AM EDT [facility] Comment:Specimen checked for clots. None detected. MPV 8.4 7.5 - 11.5 fL 10/06/2024 5:16 AM EDT [facility] Whole Blood 10/06/2024 4:01 AM EDT 10/06/2024 4:11 AM EDT us Bisi Hernandez DO LAB BLOOD ORDERABLES Final Resul t [facility] [address] [place] [address], [facility] * Hepatitis C Antibody (10/06/2024 4:01 AM EDT) HCV Ab Nonreactive Nonreactive 10/06/2024 5:12 AM EDT [facility] Comment:Health Department no tified in accordance with reportable infectious disease guidelines. Serum 10/06/2024 4:01 AM EDT 10/06/2024 4:11 AM EDT Narrative [facility] - 10/06/2024 5:12 AM EDT Antibodies to HCV not detected; does not exclude the possibility of exposure to HCV. [facility] LAB BLOOD ORDERABLES Final Resul t Performing Organization Address City/[facility]/ZIP Co de Phone Number [facility] [address] [facility]. [address] * (ABNORMAL) Hepatitis B Surface Antibody, Quantitati (10/06/2024 4:01 AM EDT) Hep B S Ab Reactive( A) Nonreactive 10/06/2024 5:16 AM EDT [facility] HBSAB NUMBER 11.50(H) 0.00 - 7.99 mIU/mL 10/06/2024 5:16 AM EDT [facility] Serum 10/06/2024 4:01 AM EDT 10/06/2024 4:11 AM EDT [facility] - 10/06/2024 5:16 AM EDT Individual is considered immune to HBV infection. [facility] LAB BLOOD ORDERABLES Final Resul t Performing Organization Address [facility] Co de Phone Number [facility] [address] [facility] * Hepatitis B surface antigen (10/06/2024 4:01 AM EDT) Hep B Surface Ag Nonreactive Nonreactive 10/06/2024 5:07 AM EDT [facility] Comment:Health Department no tified in accordance with reportable infectious disease guidelines. Serum 10/06/2024 4:01 AM EDT 10/06/2024 4:11 AM EDT [facility] - 10/06/2024 5:07 AM EDT Specimen is considered negative for HBsAg. [facility] LAB BLOOD ORDERABLES Final Resul t Performing Organization Address City/[facility]/ZIP Co de Phone Number [facility] [address] [facility] * Hepatitis A Antibody Total (10/06/2024 4:01 AM EDT) Anti-HAV Total (IgG + IgM) Nonreactive 10/06/2024 5:08 AM EDT [facility] Serum 10/06/2024 4:0 1 AM EDT 10/06/2024 4:11 AM EDT [facility] - 10/06/2024 5:08 AM EDT HAV antibodies not detected [facility] BLOOD ORDERABLES Final Resul t Performing Organization Address [facility] Co de Phone Number [facility] [address] [facility]. [address] * Hepatitis A IgM (10/06/2024 4:01 AM EDT) Hep A IgM Nonreactive Nonreactive 10/06/2024 5:02 AM EDT [facility] Serum 10/06/2024 4:01 AM EDT 10/06/2024 4:11 AM EDT Narrative [facility] - 10/06/2024 5:02 AM EDT IgM anti-HAV not detected. Does not exclude the possibility of exposure to or infection with HAV. Levels of IgM anti-HAV may be below the cut-off in early infection. [facility] BLOOD ORDERABLES Final Resul t Performing Organization Address [facility] Co de Phone Number [facility] [address] [facility]. [address] * (ABNORMAL) Salicylate Level (10/06/2024 4:01 AM EDT) Salicylate Lvl <3(L) 10 - 30 mg/dL 10/06/2024 4:58 AM EDT [facility] Serum 10/06/2024 4:01 AM EDT 10/06/2024 4:22 AM EDT [facility] BLOOD ORDERABLES Final Resul t Performing Organization Address City/[facility] Co de Phone Number [facility] [address] [facility] * AFP Tumor Marker (10/06/2024 4:01 AM EDT) [facility] AFP-Tumor Marker 2.6 0.0 - 9.0 ng/mL 10/06/2024 4:55 AM EDT [facility] Serum 10/06/2024 4:01 AM EDT 10/06/2024 4:22 AM EDT Narrative [facility] - 10/06/2024 4:55 AM EDT The testing method for AFP is a chemiluminescent immunoassay manufactured by [employer] Concentrations of AFP obtained by different assay methods or kits may vary and cannot be used interchangeably. AFP results cannot be interpreted as absolute evidence of the presence or absence of malignant disease. Bisi Hernandez DO LAB BLOOD ORDERABLES Final Resul t Performing Organization Address City/[facility] Co de Phone Number [facility] [address] [facility]. [address] * Upper Respiratory Viral/Bacterial Panel-[employer] SAL[employer]GER Only (10/06/2024 3:12 AM EDT) [facility] Adenovirus Not Detected Not Detected 10/06/2024 11:38 PM EDT [facility] Coronavirus (229E,HKU1,NL63,OC 43) Not Detected Not Detected 10/06/2024 11:38 PM EDT [facility] SARS-CoV-2 Not Detected Not Detected 10/06/2024 11:38 PM EDT [facility] Human Metapneumovirus Not Detected Not Detected 10/06/2024 11:38 PM EDT [facility] Human Rhinovirus/Enterov irus Not Detected Not Detected 10/06/2024 11:38 PM EDT [facility] Influenza A Not Detected Not Detected 10/06/2024 11:38 PM EDT [facility] Influenza A H1 Not Detected Not Detected 10/06/2024 11:38 PM EDT [facility] Influenza A/H1-2009 Not Detected Not Detected 10/06/2024 11:38 PM EDT [facility] Influenza A H3 Not Detected Not Detected 10/06/2024 11:38 PM EDT [facility] Influenza B Not Detected Not Detected 10/06/2024 11:38 PM EDT [facility] Parainfluenza 1 Not Detected Not Detected 10/06/2024 11:38 PM EDT [facility] Parainfluenza 2 Not Detected Not Detected 10/06/2024 11:38 PM EDT [facility] Parainfluenza 3 Not Detected Not Detected 10/06/2024 11:38 PM EDT [facility] Parainfluenza 4 Not Detected Not Detected 10/06/2024 11:38 PM EDT [facility] Resp. Syncycial Virus A Not Detected Not Detected 10/06/2024 11:38 PM EDT [facility] Resp. Syncycial Virus B Not Detected Not Detected 10/06/2024 11:38 PM EDT [facility] Chlamydia pneumoniae Not Detected Not Detected 10/06/2024 11:38 PM EDT [facility] Mycoplasma pneumoniae Not Detected Not Detected 10/06/2024 11:38 PM EDT [facility] Comment: The Respiratory Viral-Bacterial Panel [...] Test results have been sent to the [facility] in accordance with state requirements. For a fact sheet for healthcare providers, see https://www.fda.gov/media/512303/download. For a fact sheet for patients, see https://www.fda.gov/media/079605/download. Nasopharyngeal Swab NASOPHARYNGEAL SWAB / Unknown 10/06/2024 3:12 AM EDT 10/06/2024 5:41 PM EDT Comment:[employer] us Bisi Hernandez DO BODY FLUIDS AND STOOLS ORDERABLE S Final Result [facility] [address] [place], [place] [address] * X-ray Portable Chest (10/06/2024 1:16 AM [...] Franks MD at 10/06/2024 2:33 AM EDT Bisi Hernandez DO [facility] ORDERABLE S Final Result * Phosphatidylethanol Confirmation, B (10/06/2024 1:04 AM EDT) PETH 16:0/18.1 (POPETH) <10 Cutoff: 10 ng/mL 10/10/2024 3:11 AM EDT [facility] Comment: Phosphatidylethanol (PEth) homologues result interpretation [...] Cutoff: 10 ng/mL 10/10/2024 3:11 AM EDT [facility] Comment: PEth 16:0/18:2 (PLPEth) Reference ranges are not well established PEth Interpretation Negative. 10/10 3:11 AM EDT [facility] Comment: ADDITIONAL INFORMATION This report is [...] Food and Drug Administration. Test Performed by: [facility] [address] [place] [address] Wool Puller: Kathy Ortiz Ph.D.; CLIA# [id number] Whole Blood 10/06/2024 1:04 AM EDT 10/10/2024 3:11 AM EDT [facility] BLOOD ORDERABLES Final Resul t Performing Organization Address City/[facility]/ZIP Co de Phone Number [facility] [address] * (ABNORMAL) Acetaminophen Level (10/06/2024 1:04 AM EDT) Acetaminophen Level <10(L) 10 - 30 ug/mL 10/06/2024 2:08 AM EDT [facility] Serum 10/06/2024 1:04 AM EDT 10/06/2024 1:30 AM EDT [facility] BLOOD ORDERABLES Final Resul t Performing Organization Address [facility] de Phone Number [facility] [address] [place] [address]. [address] * Ethanol, Serum (10/06/2024 1:04 AM EDT) Ethanol <10 0 - 10 mg/dL 10/06/2024 2:08 AM EDT [facility] Serum 10/06/2024 1:04 AM EDT 10/06/2024 1:30 AM EDT [facility] BLOOD ORDERABLES Final Resul t Performing Organization Address [facility] Co de Phone Number [facility] [address] [place] [address]. [address] * #2 Blood culture-Peripheral site 2 (10/06/2024 1:04 AM EDT) Culture Result No Growth After 5 Days [facility] Blood BLOOD SPECIMEN / Unknown 10/06/2024 1:04 AM EDT 10/06/2024 4:57 AM EDT Narrative [facility] - 10/11/2024 5:05 AM EDT Suboptimal volume of blood received. Interpret results with caution. Bisi Mary DO MICROBIOLOGY - GENERAL ORDERABLE S Final Result Performing Organization Address [facility]/ZIP Co de Phone Number [facility] [address] [facility]. [address] * #1 Blood culture-Peripheral site 1 (10/06/2024 1:04 AM EDT) Culture Result No Growth After 5 Days [facility] Blood BLOOD SPECIMEN / Unknown 10/06/2024 1:04 AM EDT 10/06/2024 4:57 AM EDT [facility] - 10/11/2024 5:01 AM EDT Suboptimal volume of blood received. Interpret results with caution. Bisi Mary DO MICROBIOLOGY - GENERAL ORDERABLE S Final Result Performing Organization Address [facility] Co de Phone Number [facility] [address] [facility]. [address] * Ammonia (10/06/2024 1:04 AM EDT) Ammonia 77 27 - 90 ug/dL 10/06/2024 2:00 AM EDT [facility] Plasma 10/06/2024 1:04 AM EDT 10/06/2024 1:30 AM EDT [facility] BLOOD ORDERABLES Final Resul t Performing Organization Address [facility] Co de Phone Number [facility] [address] [facility]. [address] * Thyroid Function [place] (10/06/2024 1:04 AM EDT) TSH 0.84 0.45 - 4.12 uIU/mL 10/06/2024 2:20 AM EDT [facility] Serum 10/06/2024 1:04 AM EDT 10/06/2024 1:39 AM EDT [facility] BLOOD ORDERABLES Final Resul t Performing Organization Address City/[facility]/ZIP Co de Phone Number [facility] [address] * (ABNORMAL) Protime-INR (10/06/2024 1:04 AM EDT) Protime 22.8(H) 12.1 - 15.1 seconds 10/06/2024 1:48 AM EDT [facility] INR 1.9(H) 0.9 - 1.1 10/06/2024 1:48 AM EDT [facility] Comment: RECOMMENDED THERAPEUTIC RANGES USING INR : Stable oral anticoagulant therapy: 2.0 - 3.0 Mechanical prosthetic heart valve: 2.5 - 3.5 Recurrent acute myocardial infarction: 2.5 - 3.5 Plasma 10/06/2024 1:04 AM EDT 10/06/2024 1:30 AM EDT [facility] BLOOD ORDERABLES Final Resul t Performing Organization Address [facility] Co de Phone Number [facility] [address] [facility] * Lactic Acid, STAT (10/06/2024 1:04 AM EDT) Lactate 1.2 0.5 - 2.2 mmol/L 10/06/2024 1:59 AM EDT [facility] Plasma 10/06/2024 1:04 AM EDT 10/06/2024 1:30 AM EDT us BisiPalo Alto Networks DO LAB BLOOD ORDERABLES Final Resul t Performing Organization Address City/[facility] Co de Phone Number [facility] [address] [facility] * (ABNORMAL) CBC, STAT (10/06/2024 1:04 AM EDT) WBC 7.9 3.8 - 10.8 10E3/uL 10/06/2024 2:36 AM EDT [facility] RBC 2.76(L) 4.20 - 5.80 10E6/uL 10/06/2024 2:36 AM EDT [facility] Hemoglobin 9.9(L) 13.2 - 17.1 g/dL 10/06/2024 2:36 AM EDT [facility] Hematocrit 28.0(L) 38.5 - 50.0 % 10/06/2024 2:36 AM EDT [facility] MCV 101.5(H) 80.0 - 100.0 fL 10/06/2024 2:36 AM EDT [facility] MCH 35.7(H) 27.0 - 33.0 pg 10/06/2024 2:36 AM EDT [facility] MCHC 35.2 32.0 - 36.0 g/dL 10/06/2024 2:36 AM EDT [facility] RDW 17.9(H) 11.0 - 15.0 % 10/06/2024 2:36 AM EDT [facility] Platelets 58(L) 140 - 400 10E3/uL 10/06/2024 2:36 AM EDT [facility] Comment: Specimen checked for clots. None detected. Slide Reviewed for PLT Clumps. None Seen. MPV 8.2 7.5 - 11.5 fL 10/06/2024 2:36 AM EDT [facility] Whole Blood 10/06/2024 1:04 AM EDT 10/06/2024 1:31 AM EDT us Bisi Hernandez DO LAB BLOOD ORDERABLES Final Resul t [facility] [address] [place] [id number] * (ABNORMAL) Comprehensive Metabolic Panel (10/06/2024 1:04 AM EDT) Sodium 127(L) 133 - 146 mmol/L 10/06/2024 2:05 AM EDT [facility] Potassium 4.5 3.5 - 5.3 mmol/L 10/06/2024 2:05 AM EDT [facility] Chloride 99 98 - 110 mmol/L 10/06/2024 2:05 AM EDT [facility] CO2 18(L) 21 - 33 mmol/L 10/06/2024 2:05 AM EDT [facility] Anion Gap 10 3 - 16 mmol/L 10/06/2024 2:05 AM EDT [facility] BUN 59(H) 7 - 25 mg/dL 10/06/2024 2:05 AM T [facility] Creatinine 3.54(H) 0.60 - 1.30 mg/dL 10/06/2024 2:05 AM T [facility] Glucose 116(H) 70 - 100 mg/dL 10/06/2024 2:05 AM EDT [facility] Calcium 9.0 8.6 - 10.3 mg/dL 10/06/2024 2:05 AM [facility] Total Bilirubin 14.8(H) 0.0 - 1.5 mg/dL 10/06/2024 2:05 AM [facility] AST 61(H) 13 - 39 U/L 10/06/2024 2:05 AM [facility] ALT 33 7 - 52 U/L 10/06/2024 2:05 AM [facility] Alkaline Phosphatase 174(H) 36 - 125 U/L 10/06/2024 2:05 AM [facility] Total Protein 5.2(L) 6.4 - 8.9 g/dL 10/06/2024 2:05 AM [facility] Albumin 3.3(L) 3.5 - 5.7 g/dL 10/06/2024 2:05 AM [facility] Osmolality, Calculated 282 278 - 305 mOsm/kg 10/06/2024 2:05 AM [facility] EGFR 21 10/06/2024 2:05 AM [facility] Comment:As of 2021, the estimated GFR [...] DO LAB BLOOD ORDERABLES Final Resul t [facility] [address] [place] [address], [facility] documented in this encounter Visit Diagnoses [...] (CMS-HCC) documented in this encounter Administered Medications Active Administered Medications - up to 3 most [...] Given 10/14/2024 11:52 PM EDT 975 mg ciprofloxacin HCl (CIPRO) tablet 500 mg 500 mg, Oral, Every 24 hours, First dose on Sun10/12/24 at 0900 Given 10/17/2024 8:50 AM EDT 500 mg Given 10/16/2024 8:34 AM EDT 500 mg Given 10/15/2024 8:20 AM EDT 500 mg diphenhydrAMINE-zinc acetate (BENADRYL) cream Topical, 3 times daily PRN, Itching, Starting on Sun10/10/24 at 1139 FLUoxetine (PROZAC) capsule 20 mg 20 mg, Oral, Daily, First dose on Sun10/17/24 at 0900 Given 10/17/2024 9:38 AM EDT 20 mg folic acid (FOLVITE) tablet 1 mg 1 mg, Oral, Daily, First dose on Sun10/06/24 at 0900 Given 10/17/2024 8:48 AM EDT 1 mg Given 10/16/2024 8:34 AM EDT 1 mg Given 10/15/2024 8:20 AM EDT 1 mg heparin (porcine) injection 5,000 Units 5,000 Units, Subcutaneous, Every 8 hours scheduled (3 times per day), First dose on Sun10/06/24 at 0500 Given 10/16/2024 8:23 PM EDT 5,000 Units Right Arm Given 10/16/2024 1:17 PM EDT 5,000 Units L eft Arm Given 10/16/2024 6:36 AM EDT 5,000 Units L eft Arm lactulose (CHRONULAC) 10 gram/15 mL solution 20 [...] Allergies, itching, Starting on 10/11/24 at 1030 melatonin tablet Tab 6 mg 6 mg, Oral, Daily with dinner, First dose (after last modification) on 10/13/24 at 1700, FOR INSOMNIA methocarbamoL (ROBAXIN) tablet [...] Given 10/16/2024 8:31 PM EDT 5 mg pantoprazole (PROTONIX) EC tablet 40 mg 40 mg, Oral, Every morning before breakfast, First dose on Sun10/06/24 at 0730, Do Not Crush Given 10/17/2024 6:06 AM EDT 40 mg Given 10/16/2024 6:35 AM EDT 40 mg Given 10/15/2024 8:20 AM EDT 40 mg rifAXIMin (XIFAXAN) tablet 550 mg 550 mg, Oral, 2 times daily, First dose on Sun10/06/24 at 0200 Given 10/17/2024 8:50 AM EDT 550 mg Given 10/16/2024 8:23 PM EDT 550 mg Given 10/16/2024 8:34 AM EDT 550 mg sodium bicarbonate tablet 1,300 mg 1,300 mg, Oral, 3 times daily, First dose on Sun10/06/24 at 0900 Given 10/17/2024 8:49 AM EDT 1,300 mg Given 10/16/2024 8:23 PM EDT 1,300 mg Given 10/16/2024 1:17 PM EDT 1,300 mg thiamine HCl (VITAMIN B-1) tablet 100 [...] Given 10/16/2024 8:33 AM EDT 300 mg zinc sulfate (ZINCATE) capsule 220 mg 220 mg, Oral, Daily, First dose on Sun10/06/24 at 0900, each capsule contains 50 mg elemental zinc Given 10/17/2024 8:49 AM EDT 220 mg Given 10/16/2024 8:34 AM EDT 220 mg Given 10/15/2024 8:20 AM EDT 220 mg Inactive Administered Medications - up to 3 most recent administrations Medication Order MAR Action Action Date Dose Rate Site albumin human 25% 12.5 g, Intravenous, Every [...] Cirrhosis: Hepatorenal Syndrome, at 100 mL/hr New 10/06/2024 9:15 PM EDT 12.5 g 100 [...] 1:12 PM EDT 2 g 240 mL/hr DOBUTamine (DOBUTREX) 200 mg in sodium chloride 0.9 % 50 mL infusion for Stress Test 1-20 mcg/kg/min 118.8 kg (1.782-35.64 mL/hr, rounded to 1.8-35.6 mL/hr), Intravenous, Administer over 30 Minutes, Once, On Tish 10/09/24 at 1430, For 1 dose, Administer per protocol New Bag 10/09/2024 3:21 PM EDT 5 mcg/kg/min 8.9 mL/ hr gadobutrol (GADAVIST) 1 mmol/1 mL IV syringe 12 mL 12 mL (rounded from 11.95 mL = 0.1 mL/kg 119.5 kg), Intravenous, IMG once as needed, contrast, Starting on Sun10/14/24 at 0003, For 1 dose Given 10/13/2024 11:42 PM EDT 10 mLs hydrOXYzine HCL (ATARAX) tablet 25 mg 25 mg, Oral, Once, On Sun10/11/24 at 2230, For 1 doseIndications:pruritus of skin Given 10/11/2024 10:35 PM EDT 25 mg loratadine (CLARITIN) tablet 10 mg 10 mg, Oral, Daily, First dose on Sun10/10/24 at 1200 Given 10/11/2024 8:48 AM EDT 10 mg Given 10/10/2024 4:00 PM EDT 10 mg magnesium sulfate in D5W 100 mL 1 gram/100 mL IVPB 1 g 1 g, Intravenous, at 100 mL/hr, Once, On Sun10/12/24 at 0700, For 1 dose New Bag [...] Given 10/10/2024 9:32 PM EDT 3 mg methocarbamoL (ROBAXIN) tablet 500 mg 500 mg, Oral, Once, On Sun10/06/24 at 0630, For 1 dose Given 10/06/2024 6:25 AM EDT 500 mg methocarbamoL (ROBAXIN) tablet 500 mg 500 mg, Oral, Once, On Sun10/07/24 at 0400, For 1 dose Given 10/07/2024 3:50 AM EDT 500 mg oxyCODONE (ROXICODONE) immediate release tablet 5 [...] Given 10/15/2024 4:49 PM EDT 5 mg perflutren (OPTISON) Susp 0.66 mg 0.66 [...] Given 10/15/2024 8:20 AM EDT 40 mEq sertraline (ZOLOFT) tablet 50 mg 50 mg, Oral, Daily, First dose on Tish 10/16/24 at 0900 Given 10/16/2024 8:33 AM EDT 50 mg sodium bicarbonate 150 mEq in sterile water 1,000 mL IV infusion 75 mL/hr, Intravenous, Continuous, Starting on Sun10/13/24 at 1600, For 15 hours New Bag 10/13/2024 4:25 PM EDT 75 mL/hr 75 mL/hr sodium chloride 0.9 % IV infusion 20 mL/hr, Intravenous, Continuous, Starting on Sun10/08/24 at 0730, For 12 hours, Normal Saline 0.9% run at KVO only during administration of blood products. New Bag 10/08/2024 10:24 AM EDT 20 mL/hr 20 mL/hr vancomycin (VANCOCIN) 1,000 mg in sodium chloride 0.9 % 250 mL [id number] 1,000 mg, Intravenous, Administer over 60 Minutes, Once, Contact pharmacy if there is a question/concern of whether vancomycin should be given based on serum drug levels. Use [id number] Adapter - Mix Thoroughly Before Administration, Indication? Infection-Suspected, Site of diagnosed infections (select all that apply): Abdominal/Pelvic New Bag 10/08/2024 12:59 PM EDT 1,000 mg 250 mL/hr vancomycin (VANCOCIN) 1,500 mg in sodium chloride 0.9 % 250 mL [id number] 1,500 mg, Intravenous, Administer over 90 Minutes, Once, Contact pharmacy if there is a question/concern of whether vancomycin should be given based on serum drug levels. Use [id number] Adapter - Mix Thoroughly Before Administration, Indication? [...] 2:13 PM EDT 2,750 mg 200 mL/hr documented in this encounter Active and Recently [...] at 0900 0938 (Given - Provider: Suzette Arciniega RN) folic acid (FOLVITE) tablet 1 mg [...] Bush RN)1317 (Given - Provider: Anu Wolff RN)2022 (Given - Provider: Soco Milton RN) 0607 (Not Given - Provider: Soco Milton RN - Reason: Patient/family refused)1300 (Due)2100 (Due) lactulose (CHRONULAC) 10 gram/15 mL solution 20 g 20 g, Oral, 3 times daily, First dose (after last modification) on Sun10/06/24 at 0900, Titrate to 2-3 bowel movements a day 0820 (Given - Provider: Anu Wolff RN)1354 (Given - Provider: Anu Wolff RN)2103 (Given - Provider: Chelsy Bush RN) 0834 (Given - Provider: Anu Wolff RN)131 (Given - Provider: Anu Wolff RN)2022 (Not Given - Provider: Soco Milton RN - Reason: Order parameters not met) 0851 (Not Given - Provider: Suzette Arciniega RN - Reason: Patient/family refused)1300 (Due)2100 (Due) levothyroxine (SYNTHROID) tablet 75 mcg 75 mcg, [...] Soco Milton RN - Reason: Patient/family refused) 1700 (Due) methocarbamoL (ROBAXIN) tablet 500 mg 500 mg, Oral, 3 times daily, First dose on Sun10/07/24 at 0900 0820 (Given - Provider: Anu Wolff RN)1335 (Given - Provider: Anu Wolff RN)210 (Given - Provider: Chelsy Bush, ЮЛИЯ) 0833 (Given - Provider: Anu Wolff RN)1317 (Given - Provider: Anu Wolff RN)2022 (Given - Provider: Soco Milton RN) 0850 (Given - Provider: Suzette Arciniega, ЮЛИЯ)1300 (Due)2100 (Due) midodrine (PROAMATINE) tablet 10 mg 10 mg, Oral, 3 times daily, First dose on Sun10/09/24 at 1300 0820 (Given - Provider: Anu Wolff RN)1335 (Given - Provider: Anu Wolff RN)210 (Given - Provider: Chelsy Bush, ЮЛИЯ) 0833 (Given - Provider: Anu Wolff RN)1317 (Given - Provider: Anu Wolff RN)2022 (Given - Provider: Soco Milton, ЮЛИЯ) 0849 (Given - Provider: Suzette Arciniega, ЮЛИЯ)1300 (Due)2100 (Due) oxyCODONE (ROXICODONE) immediate release tablet 5 mg [...] Wolff RN) 0635 (Given - Provider: Chelsy Bush, ЮЛИЯ) 0606 [...] 0200 0820 (Given - Provider: Anu Wolff RN)210 (Given - Provider: Chelsy Bush RN) 0834 (Given - Provider: Anu Wolff RN)202 (Given - Provider: Soco Milton, ЮЛИЯ) 0850 (Given - Provider: Suzette Arciniega, ЮЛИЯ)2100 (Due) sertraline (ZOLOFT) tablet 50 mg (CANCELED) 50 [...] Wolff RN)1317 (Given - Provider: Anu Wolff RN)202 (Given - Provider: Soco Milton RN) 0849 (Given - Provider: Suzette Arciniega, ЮЛИЯ)1300 (Due)2100 (Due) thiamine HCl (VITAMIN B-1) tablet 100 mg 100 mg, Oral, Daily, First dose on Sun10/06/24 at 0900 0819 (Given - Provider: Anu Wolff RN) 0833 (Given - Provider: Anu Wolff RN) 0938 (Given - Provider: Suzette Arciniega, ЮЛИЯ) ursodioL (ACTIGALL) capsule 300 mg 300 mg, Oral, 2 times daily, First dose on Sun10/06/24 at 0200 0820 (Given - Provider: Anu Wolff, ЮЛИЯ)2113 (Given - Provider: Chelsy Bush RN) 0833 (Given - Provider: Anu Wolff RN)2022 (Given - Provider: Soco Milton, ЮЛИЯ) 0849 (Given - Provider: Suzette Arciniega, ЮЛИЯ)2100 (Due) zinc sulfate (ZINCATE) capsule 220 mg 220 [...] RN)1322 (See Alternative - Provider: Anu Wolff RN)203 (See Alternative - Provider: Soco Milton RN) [...] Bush RN)1322 (Given - Provider: Anu Wolff RN)203 (Given - Provider: Soco Milton RN) 0245 [...] Indicated Resolved Time C. difficile 09/09/2024 09/09/2024 Rule Out C. difficile 10/05/2024 10/05/20242024 10:04 AM EDT Rule Out COVID-19 10/06/2024 10/06/2024 10/06/2024 11:38 PM EDT Assessment Noted Time PHQ-9 Depression Total Score: 17 025 11:00 AM EDT documented as of this encounter Care Teams Telesales Representative Relationship Specialty Start Date End Date Enedina Mcguire NP [address] [place] [address] PCP - General Internal Medicine 10/05/24 documented as of this encounter
--- OUTSIDE RECORDS SUMMARY | 2024-10-10 10:36 | XMS_ITS | Encounter Summary ---
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 Patient Name: Julien Gilbert Hospital day: 11 Inpatient/Observation: Inpatient Level of Care: blue Admit date: 10/05/2024 Admission diagnosis: AMS PMH: has a past medical history of Alcoholic cirrhosis of liver ([facility]), Esophageal varices ([facility]), Hepatorenal syndrome ([facility]), Hypertension, Other hyperlipidemia (07/26/2024), Renal cell carcinoma ([facility]), Thrombocytopenia ([facility]), and Thyroid disease. PCP: Enedina Mcguire NP Home Pharmacy: [facility] [address] [place] [address] [place] [address] [facility] [address] [facility] [id number] Medical Insurance Coverage: Payor: [facility] / Plan: [facility] / Product Type: *No Producttype* / [...] Patient will remain free of falls Goal: Whitlash Fall Precautions Outcome: Progressing Problem: Daily Care [...] Patient will remain free of falls Goal: Whitlash Fall Precautions Outcome: Progressing Problem: Daily Care [...] Kandy Fuentes - 10/15/2024 2:26 PM EDT [facility] Case Management/Social Work Department Progress Note [...] disease. PCP: Enedina Mcguire NP Home Pharmacy: [address] [place] [address] [place] [address] [facility] [address] [facility] [id number] Medical Insurance Coverage: Payor: [facility] / Plan: [facility] / Product Type: *No Producttype* / [...] Patient will remain free of falls Goal: Whitlash Fall Precautions Outcome: Progressing Problem: Daily Care [...] Kandy Fuentes - 10/14/2024 11:10 AM EDT [facility] Case Management/Social Work Department Progress Note Patient Information Patient Name: Julien Gilbert Hospital day: 9 Inpatient/Observation: Inpatient Level of Care: blue Admit date: 10/05/2024 Admission diagnosis: AMS PMH: has a past medical history of Alcoholic cirrhosis of liver ([facility]), Esophageal varices ([facility]), Hepatorenal syndrome ([facility]), Hypertension, Other hyperlipidemia (07/26/2024), Renal cell carcinoma ([facility]), Thrombocytopenia ([facility]), and Thyroid disease. PCP: Enedina Mcguire NP Home Pharmacy: [facility] [address] [place] [facility] [address] [address] [facility] [address] [facility] [id number] Medical Insurance Coverage: Payor: [facility] / Plan: [facility] / Product Type: *No Producttype* / [...] Kandy Fuentes - 10/13/2024 11:53 AM EDT [facility] Case Management/Social Work Department Progress Note [...] disease. PCP: Enedina Mcguire NP Home Pharmacy: [facility] [address] [place], [place] [address] [address] [facility] 7[address] [facility] [address] Medical Insurance Coverage: Payor: [facility] / Plan: [facility] / Product Type: *No Producttype* / Other Pertinent Information RN/CM received update from team and completed chart review. Pt is not medically ready for discharge. Patient is going to have left heart cath today. Discharge Plan Anticipated discharge plan: home Anticipated discharge date: 10/14/24 CM/SW will continue to follow and remain available for discharge planning needs. Kandy [facility] * Plan of Care - Gerda [...] Kandy Fuentes - 10/10/2024 12:00 PM EDT [facility] Case Management/Social Work Department Progress Note Patient Information Patient Name: Julien Gilbert Hospital day: 5 Inpatient/Observation: Inpatient Level of Care: blue Admit date: 10/05/2024 Admission diagnosis: AMS PMH: has a past medical history of Alcoholic cirrhosis of liver ([facility]), Alcoholic hepatitis, Esophageal varices ([facility]), Hepatorenal syndrome ([facility]), Hypertension, Other hyperlipidemia (07/26/2024), Renal cell carcinoma ([facility]), Thrombocytopenia ([facility]), and Thyroid disease. PCP: Enedina Mcguire NP Home Pharmacy: [facility] [address] [place] [address] [place] [address] [facility] [address] [facility] [address] Medical Insurance Coverage: Payor: [facility] / Plan: [facility] / Product Type: *No Producttype* / [...] Patient will remain free of falls Goal: Whitlash Fall Precautions Outcome: Progressing Problem: Daily Care [...] Patient will remain free of falls Goal: Whitlash Fall Precautions Outcome: Progressing Problem: Daily Care [...] Kandy Fuentes - 10/09/2024 12:05 PM EDT [facility] Case Management/Social Work Department Progress Note [...] disease. PCP: Enedina Mcguire NP Home Pharmacy: [facility] [address] [place], [place] [address] [address] [facility] 6102 [facility] [id number] Medical Insurance Coverage: Payor: [facility] / Plan: [facility] / Product Type: *No Producttype* / [...] Kandy Fuentes - 10/08/2024 3:41 PM EDT [facility] Case Management/Social Work Department Progress Note Patient Information Patient Name: Julien Gilbert Hospital day: 3 Inpatient/Observation: Inpatient Level of Care: blue Admit date: 10/05/2024 Admission diagnosis: AMS PMH: has a past medical history of Alcoholic cirrhosis of liver (CMS-HCC), Alcoholic hepatitis, Esophageal varices (CMS-HCC), Hepatorenal syndrome (CMS- HCC), Hypertension, Other hyperlipidemia (07/26/2024), Renal cell carcinoma ([facility]), Thrombocytopenia ([facility]), and Thyroid disease. PCP: Enedina Mcguire NP Home Pharmacy: [facility] [address] [place], [place] [address] [address] [facility] 8[address] [facility] [address] Medical Insurance Coverage: Payor: [facility] / Plan: [facility] / Product Type: *No Producttype* / [...] Kandy Fuentes - 10/07/2024 3:22 PM EDT [facility] Case Management/Social Work Department Progress Note Patient Information Patient Name: Julien Gilbert Hospital day: 2 Inpatient/Observation: Inpatient Level of Care: blue Admit date: 10/05/2024 Admission diagnosis: AMS PMH: has a past medical history of Alcoholic cirrhosis of liver ([facility]), Alcoholic hepatitis, Esophageal varices ([facility]), Hepatorenal syndrome (CMS- HCC), Hypertension, Other hyperlipidemia (07/26/2024), Renal cell carcinoma ([facility]), Thrombocytopenia ([facility]), and Thyroid disease. PCP: Enedina Mcguire NP Home Pharmacy: [facility] [address] [place] [address] [facility] [address] [facility] [address] Medical Insurance Coverage: Payor: [facility] / Plan: [facility] / Product Type: *No Producttype* / [...] Patient will remain free of falls Goal: Whitlash Fall Precautions Outcome: Progressing Problem: Daily Care [...] Description 12/05/2024 8:01 AM EDT Hospital Encounter [facility] ENDOSCOPY [address] [place] [phone] Chris Orosco MD [address] [place] [phone] 12/05/2024 8:01 AM EDT - 12/05/2024 8:31 AM EDT Surgery [facility] ENDOSCOPY [address] [place] [phone] Chris Orosco MD [address] [place] [phone] EGD Scheduled Orders Name Type Priority Associated [...] liver with ascites, unspecified hepatic cirrhosis type ([facility]) 12/05/2024 8:01 AM EDT documented [...] PM EDT URINE DRUG CONFIRMATION Routine 10/08/19 25 10:50 PM EDT GIARDIA CRYPTOSPORIDIUM ANTIGENS Routine [...] IGG ANTIBODY Routine 10/07/2024 6:37 PM EDT [id number]-[id number] (AAT) QUANTITATION & MUTATION Routine 10/07/2024 6:37 [...] Routine 10/07/2024 6:19 PM EDT US DUPLEX QVH-SIKUUZ-APJAOEC COMPLETE Routine 10/07/2024 3:48 PM EDT US [...] 10/06/2024 4:01 AM EDT UPPER RESPIRATORY VIRAL/BACTERIAL PANEL-PATTERN CLERK ONLY Routine 10/06/2024 3:12 AM EDT XR [...] - 146 mmol/L 10/17/2024 7:02 AM EDT [facility] Potassium 3.4(L) 3.5 - 5.3 mmol/L 10/17/2024 7:02 AM EDT [facility] Chloride 104 98 - 110 mmol/L 10/17/2024 7:02 AM EDT [facility] CO2 18(L) 21 - 33 mmol/L 10/17/2024 7:02 AM EDT [facility] Anion Gap 11 3 - 16 mmol/L 10/17/2024 7:02 AM EDT [facility] BUN 54(H) 7 - 25 mg/dL 10/17/2024 7:02 AM EDT [facility] Creatinine 2.88(H) 0.60 - 1.30 mg/dL 10/17/2024 7:02 AM EDT [facility] Glucose 127(H) 70 - 100 mg/dL 10/17/2024 7:02 AM EDT [facility] Calcium 8.2(L) 8.6 - 10.3 mg/dL 10/17/2024 7:02 AM EDT [facility] Phosphorus 4.5 2.1 - 4.7 mg/dL 10/17/2024 7:02 AM EDT [facility] Albumin 3.1(L) 3.5 - 5.7 g/dL 10/17/2024 7:02 AM EDT [facility] Osmolality, Calculated 292 278 - 305 mOsm/kg 10/17/2024 7:02 AM EDT [facility] EGFR 27 10/17/2024 7:02 AM EDT [facility] Comment:As [...] ORDERABLES Final Result [facility] [address] * (ABNORMAL) Protime-INR (10/16/2024 6:31 AM [...] Result [facility] [address] [place] [address], [facility] * (ABNORMAL) Hepatic Function Panel (10/16/2024 [...] Result [facility] [address] [facility] [place] [address], [facility] * Magnesium (10/16/2024 6:31 AM EDT) Magnesium 2.1 1.5 - 2.5 mg/dL 10/16/2024 7:24 AM EDT [facility] Plasma 10/16/2024 6:31 AM EDT 10/16/2024 6:56 AM EDT us Eileen Schroeder MD, PhD LAB BLOOD ORDERABLES Final Result [facility] [address] [place] [address], [facility] * (ABNORMAL) CBC [...] per review criteria approved by the laboratory diploma medical assistant. us Eileen Schroeder MD, PhD LAB BLOOD ORDERABLES Final Result [facility] [address] [place] [id number], [facility] * (ABNORMAL) Renal Function Panel w/EGFR (10/16/2024 [...] Final Result Performing Organization Address City/[facility]/ZIP Co de Phone Number [facility] [address] * CARISA Rhythm Strip - Scan (10/15/2024 8:02 PM EDT) us Scanning Uchhim SCAN DOCS - NO RESULTS Final Res ult * CARISA Rhythm Strip - Scan (10/15/2024 8:02 PM EDT) us Scanning Uchhim SCAN DOCS - NO RESULTS Final Res ult * Prepare Platelets, leukoreduced, 1 Units (10/15/2024 6:16 AM EDT) Product Code Y7845U65 [facility]LL Unit Number [id number] HCLL Dispense Status Presumed Transfused_PT HCLL Blood Expiration Date [id number] [facility] Coding System [id number] [facility] Product us Eleazar Nguyễn MD BLOOD BANK PRODUCT ORDE LILIA Final Result Performing Organization Address City/[facility]/ZIP Co de Phone Number HCLL * Prepare Fresh Frozen Plasma, 1 Units (10/15/2024 6:15 AM EDT) Product Code C9163O49 [facility] Unit Number [id number] HCLL Dispense Status Presumed Transfused_PT HCLL Blood Expiration Date HCLL Coding System [id number] [facility] Blood Bank Product us Eleazar Nguyễn MD BLOOD BANK PRODUCT ORDE LILIA Final Result [facility] * (ABNORMAL) Protime-INR (10/15/2024 6:08 AM EDT) Protime 21.6(H) 12.1 - 15.1 seconds 10/15/2024 6:36 AM EDT [facility] INR 1.8(H) 0.9 - 1.1 10/15/2024 6:36 AM EDT [facility] Comment: RECOMMENDED THERAPEUTIC RANGES USING INR : Stable oral anticoagulant therapy: 2.0 - 3.0 Mechanical prosthetic heart valve: 2.5 - 3.5 Recurrent acute myocardial infarction: 2.5 - 3.5 Plasma 10/15/2024 6:08 AM EDT 10/15/2024 6:17 AM EDT us Eileen Schroeder MD, PhD LAB BLOOD ORDERABLES Final Result [facility] [address] * (ABNORMAL) Hepatic Function Panel (10/15/2024 [...] Final Result Performing Organization Address City/[facility]/ZIP Co de Phone Number [facility] [address] * Magnesium (10/15/2024 6:08 AM EDT) Magnesium 1.8 1.5 - 2.5 mg/dL 10/15/2024 6:45 AM EDT [facility] Plasma 10/15/2024 6:08 AM EDT 10/15/2024 6:17 AM EDT Eileen Schroeder MD, PhD LAB BLOOD ORDERABLES Final Result [facility] [address] * (ABNORMAL) CBC (10/15/2024 6:08 AM EDT) WBC 4.6 3.8 - 10.8 10E3/uL 10/15/2024 6:51 AM EDT [facility] RBC 1.94(L) 4.20 - 5.80 10E6/uL 10/15/2024 6:51 AM EDT [facility] Hemoglobin 7.1(L) 13.2 - 17.1 g/dL [...] BLOOD ORDERABLES Final Result Performing Organization Address City/State/[facility] de Phone Number [facility] [address] * PRA-HLA Ab Screen (Cytotoxic) (10/15/2024 6:08 AM EDT) [facility] The request and specimen(s) for this test have been received and transported to the [facility] at [address] [place] [address]. The [facility] will report results directly to the client. 10/15/2024 6:42 AM EDT [facility] Comment:The request and spec imen(s) for this test have been received and transported to the [facility] at [address] [place] [address]. The [facility] will report results directly to the client. Serum 10/15/2024 6:08 AM EDT 10/15/2024 6:42 AM EDT us Cosmo Pacheco MD LAB BLOOD ORDERABLES Final Resul t [facility] [address] [place] [id number], [facility] * (ABNORMAL) Renal Function Panel w/EGFR (10/15/2024 6:08 AM EDT) Sodium 135 133 - 146 mmol/L 10/15/2024 6:45 AM EDT [facility] Potassium 3.4(L) 3.5 - 5.3 mmol/L 10/15/2024 6:45 AM EDT [facility] Chloride 107 98 - 110 mmol/L 10/15/2024 6:45 AM EDT [facility] CO2 [...] >90mL/min/1.73m2. Reference: Luis Eduardo C, Talia M, Oilvia DC, Emerita ND, Madelyn [place], Felicia [place], et al. A Unifying Approach for GFR Estimation: Recommendations of the NKF-ASN Task Force on Reassessing the inclusion of Race in Diagnosing Kidney Disease. Am J Kidney Dis. 2020. Plasma 10/15/2024 6:08 AM EDT 10/15/2024 6:17 AM EDT us Eileen Schroeder MD, PhD LAB BLOOD ORDERABLES Final Result [facility] [address] [place] [address] * LEFT HEART CATH (10/14/2024 2:09 PM EDT) 10/14/2024 11:4 7 AM EDT Narrative [facility] - 10/14/2024 9:27 PM EDT *[facility]* Cardiac Supervisor Inspection Department [address] [place] [address] CATHETERIZATION LAB STUDY Patient: Julien Gilbert Age: [...] manner. 3. Right radial artery access. A [id number] Glidesheath - Slender - .021 sheath was [...] + + !LV pressure s/d, ed !112, dP/ia=0903jn Hg/s! + + + !Aortic pressure s/d (m)!106/58 (75) ! + + + ATTESTATION: Dr. Matta was present for the entire procedure. Dr. Jay Quan was the initial author of this report. Prepared and electronically signed by Irving Matta MD [id number] Procedure Note Irving Matta MD - 10/14/2024 *[facility]* Cardiac Supervisor Inspection Department [address] [place] [address] CATHETERIZATION LAB STUDY Patient: Julien Gilbert Age: [...] manner. 3. Right radial artery access. A 2Po86ey Glidesheath - Slender - .021sheath was advanced [...] complications. Contrast: Omnipaque 350 25ml (total dose). Miecjjvhr870 125ml (wasted). Radiation: Fluoroscopy time: 15min. Total [...] + + !LV pressure s/d, ed !, dP/ww=1071hx Hg/s! + + + !Aortic pressure s/d (m)!106/58 (75) ! + + + ATTESTATION: Dr. Matta was present for the entire procedure. Dr. Jay Quan wasthe initial author of this report. Prepared and electronically signed by Irving Matta MD [id number]:50 [place] [id number] Final Result [facility] * Transfuse Fresh Frozen Plasma Transfusion Rate: Per dept routine (10/14/2024 2:08 PM EDT) us Eleazar Nguyễn MD NURSING TREATMENT ORDER PAL - BLOOD ADMIN Final Result Performing Organization Address City/[facility]/ZIP Co de Phone Number EXTERNAL * Transfuse Fresh Frozen Plasma Transfusion Rate: Per dept routine, 1 Units (10/14/2024 2:08 PM EDT) us Eleazar Nguyễn MD NURSING TREATMENT ORDER PAL - BLOOD ADMIN Final Result Performing Organization Address City/[facility]/ZIP Co de Phone Number EXTERNAL * Transfuse Platelets Transfusion Rate: Per dept routine (10/14/2024 12:43 PM EDT) us Eleazar Nguyễn MD NURSING TREATMENT ORDER PAL - BLOOD ADMIN Final Result Performing Organization Address City/[facility]/ZIP Co de Phone Number EXTERNAL * Transfuse Platelets Transfusion Rate: Per dept routine, 1 Units (10/14/2024 12:43 PM EDT) us Eleazar Nguyễn MD NURSING TREATMENT ORDER PAL - BLOOD ADMIN Final Result Performing Organization Address [facility] Co de Phone Number EXTERNAL * Antibody Screen (10/14/2024 8:21 AM EDT) Antibody Screen Negative 10/14/2024 9:11 AM EDT [facility] Blood 10/14/2024 8:21 AM EDT 10/14/2024 8:33 AM EDT Narrative HEALTH LAB - 10/14/2024 9:26 AM EDT Testing performed by [facility] Transfusion Service us Eleazar Nguyễn MD BLOOD BANK TEST ORDERAB LES Final Result Performing Organization Address City/[facility] Co de Phone Number [facility] [address] [place] [address], [facility] * ABO/Rh (10/14/2024 8:21 AM EDT) ABO Grouping O 10/14/2024 8:55 AM EDT [facility] Rh Type Positive 10/14/2024 8:55 AM EDT [facility] Blood 10/14/2024 8:21 AM EDT 10/14/2024 8:33 AM EDT us Eleazar Nguyễn MD BLOOD BANK TEST ORDERAB LES Final Result Performing Organization Address [facility] Co de Phone Number [facility] [address] * (ABNORMAL) Protime-INR (10/14/2024 2:53 AM EDT) [...] ORDERABLES Final Result Performing Organization Address [facility] Co de Phone Number [facility] [address] [facility]. [address] * (ABNORMAL) Hepatic Function Panel (10/14/2024 [...] ORDERABLES Final Result Performing Organization Address [facility] Co de Phone Number [facility] [address] [facility]. [address] * Magnesium (10/14/2024 2:53 AM EDT) Magnesium 1.9 1.5 - 2.5 mg/dL 10/14/2024 4:45 AM EDT [facility] Plasma 10/14/2024 2:53 AM EDT 10/14/2024 4:16 AM EDT Eileen Schroeder MD, PhD LAB BLOOD ORDERABLES Final Result Performing Organization Address [facility] Co de Phone Number [facility] [address] [place] [address]. [address] * (ABNORMAL) CBC (10/14/2024 2:53 AM EDT) [...] ORDERABLES Final Result [facility] [address] * (ABNORMAL) Renal Function Panel w/EGFR [...] ORDERABLES Final Result [facility] [address] [place] [address], [facility] * Cardiac Cath [...] mL of GADOBUTROL 1 MMOL/ML INTRAVENOUS SYRINGE ([facility]) administered intravenously COMPARISON: CT 09/03/2024. Ultrasound [...] mL of GADOBUTROL 1 MMOL/ML INTRAVENOUS SYRINGE ([facility])administered intravenously COMPARISON: CT 09/03/2024. Ultrasound 10/07/2024. [...] - 15.1 seconds 10/13/2024 6:12 AM EDT [facility] INR 2.1(H) 0.9 - 1.1 10/13/2024 6:12 AM EDT [facility] Comment: RECOMMENDED THERAPEUTIC RANGES USING INR : Stable oral anticoagulant therapy: 2.0 - 3.0 Mechanical prosthetic heart valve: 2.5 - 3.5 Recurrent acute myocardial infarction: 2.5 - 3.5 Plasma 10/13/2024 5:35 AM EDT 10/13/2024 5:52 AM EDT Eileen Schroeder MD, PhD LAB BLOOD ORDERABLES Final Result [facility] [address] [place] [address], [facility] * (ABNORMAL) Hepatic Function Panel (10/13/2024 [...] - 8.9 g/dL 10/13/2024 6:30 AM EDT [facility] Albumin 3.1(L) 3.5 - 5.7 g/dL 10/13/2024 6:30 AM EDT [facility] Bilirubin, Indirect 2.97(H) 0.00 - 1.10 mg/dL 10/13/2024 6:30 AM EDT [facility] Plasma 10/13/2024 5:35 AM EDT 10/13/2024 5:52 AM EDT Eileen Schroeder MD, PhD LAB BLOOD ORDERABLES Final Result Performing Organization Address [facility]/ZIP Co de Phone Number [facility] [address] * Magnesium (10/13/2024 5:35 AM EDT) Magnesium 2.0 1.5 - 2.5 mg/dL 10/13/2024 6:30 AM EDT [facility] Plasma 10/13/2024 5:35 AM EDT 10/13/2024 5:52 AM EDT Eileen Schroeder MD, PhD LAB BLOOD ORDERABLES Final Result [facility] [address] * (ABNORMAL) CBC (10/13/2024 5:35 AM [...] BLOOD ORDERABLES Final Result Performing Organization Address City/State/[facility] Co de Phone Number [facility] [address] * (ABNORMAL) Ammonia (10/13/2024 5:35 AM EDT) Ammonia 203(HH) 27 - 90 ug/dL 10/13/2024 7:16 AM EDT [facility] Comment: HEMOLYSIS EVIDENT. RESULTS MAY BE INFLUENCED. Critical Result [id number] Called to and read back by: KEY MELO RN at: 10/13/2024 07:15:55 by:NISREEN Plasma 10/13/2024 5:35 AM EDT 10/13/2024 6:19 AM EDT us Ellis Mays LAB BLOOD ORDERABLES Final Resul t [facility] [address] [place] [address], [facility] * (ABNORMAL) Renal Function Panel [...] ORDERABLES Final Result [facility] [address] * CARISA Rhythm Strip - Scan (10/12/2024 10:30 PM EDT) us Scanning Uchhim SCAN DOCS - NO RESULTS Final Res ult * (ABNORMAL) Protime-INR (10/12/2024 5:44 AM EDT) Protime 25.7(H) 12.1 - 15.1 seconds 10/12/2024 6:12 AM EDT [facility] INR 2.3(H) 0.9 - 1.1 [...] Final Result [facility] [address] [facility] [place] [address], [facility] * (ABNORMAL) Hepatic Function Panel (10/12/2024 5:44 [...] Final Result [facility] [address] [facility] [place] [address], [facility] * Magnesium (10/12/2024 5:44 AM EDT) Magnesium 1.9 1.5 - 2.5 mg/dL 10/12/2024 6:29 AM EDT [facility] Plasma 10/12/2024 5:44 AM EDT 10/12/2024 5:58 AM EDT us Eileen Schroeder MD, PhD LAB BLOOD ORDERABLES Final Result [facility] [address] [place] [address], [facility] * (ABNORMAL) CBC [...] per review criteria approved by the laboratory diploma medical assistant. us Eileen Schroeder MD, PhD LAB BLOOD ORDERABLES Final Result [facility] [address] [place] [address], [facility] * (ABNORMAL) Renal Function Panel w/EGFR (10/12/2024 [...] Final Result Performing Organization Address City/[facility]/ZIP Co de Phone Number [facility] [employer] [address] [facility] * CARISA Rhythm Strip - Scan [...] Final Result Performing Organization Address City/[facility]/ZIP Co de Phone Number [facility] [address] * (ABNORMAL) Hepatic Function Panel (10/11/2024 [...] Result [facility] [address] [facility]. [address] * Magnesium (10/11/2024 3:02 AM EDT) Magnesium 2.0 1.5 - 2.5 mg/dL 10/11/2024 3:38 AM EDT [facility] Plasma 10/11/2024 3:02 AM EDT 10/11/2024 3:08 AM EDT Eileen Schroeder MD, PhD LAB BLOOD ORDERABLES Final Result [facility] [address] [facility] [place] [address], [facility] * (ABNORMAL) CBC [...] per review criteria approved by the laboratory diploma medical assistant. us Eileen Schroeder MD, PhD LAB BLOOD ORDERABLES Final Result [facility] [address] [facility] * Vancomycin, random (10/11/2024 3:02 AM EDT) Vancomycin Random 13.4 ug/mL 10/11/2024 3:37 AM EDT [facility] Comment:Reference range not established for this test. Plasma 10/11/2024 3:02 AM EDT 10/11/2024 3:08 AM EDT us Jodi FreireD LAB BLOOD ORDERABLES Final Result Performing Organization Address [facility] Co de Phone Number [facility] [address] * (ABNORMAL) Renal Function Panel w/EGFR [...] - 4.7 mg/dL 10/11/2024 3:38 AM EDT [facility] Albumin 3.3(L) 3.5 [...] Final Result [facility] [address] * IR Paracentesis incl imaging guide [...] per primary team. Report Verified by: Bakari Whal CNP at 10/10/2024 3:31 PM EDT Narrative [...] diagnostic and therapeutic paracentesis. Bakari Wahl CNP, Shredded Filler Machine Wrapper Layer Procedure and Findings: The procedure was performed [...] Using ultrasound guidance, a 10 cm, 5-F [employer] Centesis catheter was placed into the right [...] for diagnostic andtherapeutic paracentesis. Bakari Wahl CNP, Shredded Filler Machine Wrapper Layer Procedure and Findings: The procedure was performed [...] Using ultrasound guidance, a 10 cm, 5-F [employer] Centesis catheter was placedinto the right lower [...] 10/10/2024 3:31 PM EDT Chari Vanegas MD G IR ORDERABLES Final Result * Stress Testing [...] ORDERABL ES Final Result Performing Organization Address City/[facility]/ZIP Co de Phone Number [facility] [address] [facility] * Body Fluid Culture plus Stain [...] ES Final Result Performing Organization Address [facility] Co de Phone Number [facility] [address] [facility] * UPPER GI ENDOSCOPY (10/10/2024 11:48 AM EDT) 10/10/2024 11:4 8 AM EDT Narrative [facility] - 10/10/2024 12:34 PM EDT [id number] Procedure Date: 10/10/2024 11:48 AM Patient Name: Julien Gilbert Date of : 1985 Admit Type: Inpatient Age: 39 Gender: Male Note Status: Finalized Attending MD: Lino Soto MD, [id number] Procedure: Upper GI endoscopy Indications: Gastroesopahgeal variceal [...] verified by the physician, the nurse, the clinical technician and the electrical assembly technician in the pre-procedure area in the [...] to hypotension Procedure Code(s): --- Professional --- 62920, GC, Esophagogastroduodenoscopy, flexible, transoral; diagnostic, including collection of specimen(s) by brushing or washing, when performed (separate procedure) Diagnosis Code(s): --- Professional --- I85.00, Esophageal varices without bleeding K76.6, Portal hypertension K31.89, Other diseases of stomach and duodenum CPT copyright 2022 [employer]. All rights reserved. The codes documented in this report are preliminary and upon overhead cleaner review may be revised to meet current [...] In: 12:10:16 PM Scope Out: 12:17:[address] [place] [address], [facility] us Provider Not In System PROCEDURE/MINOR SURGICAL ORDERABLES Final Result Performing Organization Address [facility] Co de Phone Number [facility] * (ABNORMAL) Protime-INR (10/10/2024 5:23 AM EDT) Protime 23.9(H) 12.1 - 15.1 seconds 10/10/2024 6:11 AM EDT [facility] INR 2.1(H) 0.9 - 1.1 10/10/2024 6:11 AM EDT [facility] Comment: RECOMMENDED THERAPEUTIC RANGES USING INR : Stable oral anticoagulant therapy: 2.0 - 3.0 Mechanical prosthetic heart valve: 2.5 - 3.5 Recurrent acute myocardial infarction: 2.5 - 3.5 Plasma 10/10/2024 5:23 AM EDT 10/10/2024 5:50 AM EDT us Eileen Schroeder MD, PhD LAB BLOOD ORDERABLES Final Result Performing Organization Address [facility] Co de Phone Number [facility] [address] [place] [address] * (ABNORMAL) Hepatic Function Panel (10/10/2024 5:23 [...] ORDERABLES Final Result Performing Organization Address [facility]/ZIP Co de Phone Number [facility] [address] * Magnesium (10/10/2024 5:23 AM EDT) Magnesium 1.9 1.5 - 2.5 mg/dL 10/10/2024 6:21 AM EDT [facility] Plasma 10/10/2024 5:23 AM EDT 10/10/2024 5:50 AM EDT Eileen Schroeder MD, PhD LAB BLOOD ORDERABLES Final Result Performing Organization Address [facility] Co de Phone Number [facility] [address] * (ABNORMAL) CBC (10/10/2024 5:23 AM [...] Final Result Performing Organization Address City/[facility]/ZIP Co de Phone Number [facility] [address] * Vancomycin, random (10/10/2024 5:23 AM EDT) Vancomycin Random 16.4 ug/mL 10/10/2024 6:22 AM EDT [facility] Comment:Reference range not established for this test. Plasma 10/10/2024 5:23 AM EDT 10/10/2024 5:51 AM EDT us Jodi FreireD LAB BLOOD ORDERABLES Final Result Performing Organization Address City/[facility]/ZIP Co de Phone Number [facility] [address] * (ABNORMAL) Renal Function Panel w/EGFR (10/10/2024 5:23 AM EDT) Sodium 135 133 - 146 mmol/L 10/10/2024 6:21 AM EDT [facility] Potassium 3.6 3.5 - 5.3 mmol/L [...] ORDERABLES Final Result [facility] [address] [place] [address] * ECHO STRESS W/ CONTRAST (10/09/2024 4:37 PM EDT) Anatomical Region Laterality Modality Chest Ultrasound 10/09/2024 2:40 PM EDT Narrative 10/09/2024 6:45 PM EDT * [facility]* [address] [place] [address] Stress Echocardiogram Patient: Julien Gilebrt Room: 8142 Height: 76in MR Number: [id number] : 1985 Weight: 262lb Account: [id number] Gender: M BP: 125 / 77 Study Date: 10/09/2024 Age: 39 BSA: 2.48m^2 Referring physician: Gerri Peterson Interpreting physician: Tonya Henriquez MD FELLOW Lisa Jha MD PERFORMING Tonya Henriquez MD EMERGENCY ROOM SPECIALIST [employer] ORDERING Gerri Peterson REFERRING [...] augmented by the addition of hand director of gift planning and leg lifts. The infusion was terminated [...] at baseline or with provocation, shows no mhbcg-rr-axyb atrial level shunt. - Pulmonary arteries: Systolic [...] at baseline or with provocation, shows no tdsgk-nv-rjgt atrial level shunt. Pulmonary artery: - Systolic [...] at baseline or with provocation, shows no xltlj-io-ftno atrial level shunt. Pericardium: - There is [...] peak heart rate and blood pressure was 59261vc Hg/min. Stress testing did not produce any [...] Reviewed and confirmed by Tonya Henriquez MD [id number] Procedure Note Tonya Henriquez MD - 10/09/2024 * [facility]* [address] [place] [address] Stress Echocardiogram Patient: Julien Gilbert Room: 3480 Height: 76in MR Number: [id number] : 1985 Weight: 262lb Account: [id number] Gender: M BP: 125 / 77 Study Date: 10/09/2024 Age: 39 BSA: 2.48m^2 Referring physician: Gerri Peterson Interpreting physician: Tonya Henriquez MD FELLOW Lisa Jha MD PERFORMING Tonya Henriquez MD EMERGENCY ROOM SPECIALIST [employer] Gan ORDERING Gerri Peterson REFERRING Gerri Peterson ATTENDING Fouzia Rene ADMITTING Angie Blanchard Procedure:STRESS ECHO - PHARMACOLOGIC Order: Indications: Pre-Operative Clearance ([id number]). PMH: EtOH Use Disorder. Risk factors: Hypertension. Dyslipidemia. Study data: Height: 76in. 193cm. Weight: 262lb. 118.8kg. The previousstudy was not available, so comparison was made to the report of 07/15/2024. Study status: Routine. Procedure: [facility] A baseline ECG was recorded. Intravenous [...] augmented by the addition of hand director of gift planning and leg lifts. The infusion was terminated [...] at baseline or with provocation, shows no vxjqy-rj-tvsc atrial level shunt. - Pulmonary arteries: Systolic [...] study at baseline or with provocation, showsno hqffa-gd-kqtg atrial level shunt. Pulmonary artery: - Systolic [...] at baseline or with provocation, shows no cpxdg-qv-lafb atrial level shunt. Pericardium: - There is [...] heart rate). The maximal predicted heart rate [id number]. The target heart rate was 152bpm. The target heart rate was achieved.The heart rate response to stress is normal. There is a normal resting blood pressure with an appropriate response to stress. The rate-pressureproduct for the peak heart rate and blood pressure was 70247as Hg/min. Stress testing did not produce any [...] Reviewed and confirmed by Tonya Henriquez MD [id number] us Gerri Peterson MD CV ECHO ORDERABLES Final Result * (ABNORMAL) Renal Function Panel w/EGFR, STAT (10/09/2024 1:05 PM EDT) Sodium 134 133 - 146 mmol/L 10/09/2024 2:10 PM EDT [facility] Potassium 3.7 3.5 - 5.3 mmol/L 10/09/2024 2:10 PM EDT [facility] Chloride 105 98 - 110 mmol/L [...] - 305 mOsm/kg 10/09/2024 2:10 PM EDT [facility] EGFR 27 10/09/2024 2:10 PM [...] ORDERABLES Final Result [facility] [address] [place] [address], [facility] * (ABNORMAL) Renal Function Panel [...] HOSPITAL [facility] EGFR 26 10/09/2024 8:47 AM T [facility] Comment:As of 2021, [...] Resu lt [facility] [address] [facility] * Prepare RBC, leukoreduced, 1 Units (10/09/2024 6:16 AM EDT) Product Code [id number] [facility] Unit Number [id number] [facility] Dispense Status Presumed Transfused_PT [facility] Blood Expiration Date [id number] [facility] Coding System [id number] [facility] Blood Bank Product us Eileen Schroeder MD, PhD BLOOD BANK PRODUCT OR DERABLES Final Result Performing Organization Address [facility] Co de Phone Number [facility] * (ABNORMAL) Protime-INR (10/09/2024 4:59 AM EDT) Protime 26.5(H) 12.1 - 15.1 seconds 10/09/2024 6:30 AM EDT [facility] INR 2.4(H) 0.9 - 1.1 10/09/2024 6:30 AM EDT [facility] Comment: RECOMMENDED THERAPEUTIC RANGES USING INR : Stable oral anticoagulant therapy: 2.0 - 3.0 Mechanical prosthetic heart valve: 2.5 - 3.5 Recurrent acute myocardial infarction: 2.5 - 3.5 Plasma 10/09/2024 4:59 AM EDT 10/09/2024 5:55 AM EDT us Eileen Schroeder MD, PhD LAB BLOOD ORDERABLES Final Result Performing Organization Address City/[facility]/ZIP Co de Phone Number [facility] [address] [facility] [place] [address], [facility] * (ABNORMAL) Hepatic Function Panel (10/09/2024 4:59 [...] Final Result Performing Organization Address City/[facility]/ZIP Co de Phone Number [facility] [address] * Magnesium (10/09/2024 4:59 AM EDT) Magnesium 1.8 1.5 - 2.5 mg/dL 10/09/2024 6:42 AM EDT [facility] Plasma 10/09/2024 4:59 AM EDT 10/09/2024 5:57 AM EDT Eileen Schroeder MD, PhD LAB BLOOD ORDERABLES Final Result Performing Organization Address [facility]/ZIP Co de Phone Number [facility] [address] * (ABNORMAL) CBC (10/09/2024 4:59 AM [...] ORDERABLES Final Result [facility] [address] [place] [address], [facility] * Renal Tx Recipient (10/09/2024 4:59 AM EDT) Renal Transplant Recipient The request and specimen(s) for this test have been received and transported to the [facility] at [address] [place] [address]. The [facility] will report results directly to the client. 10/09/2024 7:26 AM EDT [facility] Blood 10/09/2024 4:59 AM EDT 10/09/2024 7:26 AM EDT us Aaron Gonzalez MD LAB BLOOD ORDERABLES Final Resu lt Performing Organization Address City/[facility]/ZIP Co de Phone Number [facility] [address] * Vancomycin, random (10/09/2024 4:59 AM EDT) Vancomycin Random 11.0 ug/mL 10/09/2024 6:33 AM EDT [facility] Comment:Reference range not established for this test. Plasma 10/09/2024 4:59 AM EDT 10/09/2024 5:56 AM EDT Jodi Ortiz PharmD LAB BLOOD ORDERABLES Final Result Performing Organization Address [facility] Co de Phone Number [facility] [address] * (ABNORMAL) Renal Function Panel w/EGFR [...] ORDERABLES Final Result [facility] [address] [place] [address], [facility] * (ABNORMAL) CBC (10/08/2024 5:52 PM [...] ORDERABLES Final Result Performing Organization Address [facility] de Phone Number [facility] [address] * Transfuse RBC Has consent been obtained? Yes; Transfusion Rate: Per dept routine (10/08/2024 1:17 PM EDT) us Eileen Schroeder MD, PhD NURSING TREATMENT ORD ERABLES - BLOOD ADMIN Final Result Performing Organization Address City/[facility] Co de Phone Number EXTERNAL * Transfuse RBC Has consent been obtained? Yes; Transfusion Rate: Per dept routine, 1 Units (10/08/2024 1:17 PM EDT) us Eileen Schroeder MD, PhD NURSING TREATMENT ORD ERABLES - BLOOD ADMIN Final Result Performing Organization Address [facility] Co de Phone Number EXTERNAL * [...] Final Resu lt Performing Organization Address [facility] Co de Phone Number [facility] [address] * (ABNORMAL) Hemoglobin A1C (10/08/2024 10:25 [...] Final Resu lt Performing Organization Address [facility] Co de Phone Number [facility] [address] [facility] * (ABNORMAL) Vitamin D 25 Hydroxy (10/08/2024 10:25 AM EDT) Vit D, 25-Hydroxy 7.1(L) 30.0 - 100.0 ng/mL 10/08/2024 11:36 AM EDT [facility] Comment: Vitamin D deficiency has been defined by the [place] [employer] (IOM) and an Endocrine Society [...] Final Resu lt Performing Organization Address [facility]/ZIP Co de Phone Number [facility] [address] [facility] * Iron Studies (Iron + TIBC) (10/08/2024 10:25 AM EDT) Iron 81 50 - 212 ug/dL 10/08/2024 11:23 AM EDT [facility] % Iron Saturation SEE COMMENT 15.0 - 55.0 % 10/08/2024 11:23 AM EDT [facility] [...] Final Resu lt Performing Organization Address [facility] Co de Phone Number [facility] [address] [facility] * (ABNORMAL) Ferritin (10/08/2024 10:25 AM EDT) Ferritin 706.9(H) 23.9 - 336.2 ng/mL 10/08/2024 11:35 AM EDT [facility] Serum 10/08/2024 10:2 5 AM EDT 10/08/2024 10:49 AM EDT Gerri Peterson MD LAB BLOOD ORDERABLES Final Resu lt Performing Organization Address City/[facility] Co de Phone Number [facility] [address] [facility] * QuantiFERON TB2 Ag (10/08/2024 10:25 AM EDT) QuantiFERON TB2 Ag Value 0.07 10/10/2024 10:41 AM EDT [facility] Plasma 10/08/2024 10:2 5 AM EDT 10/08/2024 11:05 AM EDT Gerri Peterson MD LAB BLOOD ORDERABLES Final Resu lt Performing Organization Address City/[facility] Co de Phone Number [facility] [address] [facility] * QuantiFERON TB1 Ag (10/08/2024 10:25 AM EDT) QuantiFERON TB1 Ag Value 0.06 10/10/2024 10:41 AM EDT [facility] Plasma 10/08/2024 10:2 5 AM EDT 10/08/2024 11:05 AM EDT Gerri Peterson MD LAB BLOOD ORDERABLES Final Resu lt Performing Organization Address [facility] Co de Phone Number [facility] [address] [facility] * QuantiFERON Nil (10/08/2024 10:25 AM EDT) QuantiFERON Nil 0.06 10:41 AM EDT [facility] Plasma 10/08/2024 10:2 5 AM EDT 10/08/2024 11:05 AM EDT Gerri Peterson MD LAB BLOOD ORDERABLES Final Resu lt Performing Organization Address [facility] Co de Phone Number [facility] [address] [facility] * QuantiFERON Mitogen (10/08/2024 10:25 AM [...] Resu lt Performing Organization Address City/[facility]/ZIP Co de Phone Number [facility] [address] [facility] * Reticulocyte Count, Auto (10/08/2024 7:41 [...] MD LAB BLOOD ORDERABLES Final Res ult [facility] [address] [facility] * (ABNORMAL) Haptoglobin (10/08/2024 7:41 AM EDT) Haptoglobin <30(L) 44 - 215 mg/dL 10/08/2024 8:53 AM EDT [facility] Serum 10/08/2024 7:41 AM EDT 10/08/2024 7:51 AM EDT us Eileen Schroeder MD, PhD LAB BLOOD ORDERABLES Final Result [facility] [address] [place] [address], [facility] * (ABNORMAL) CBC - Post Transfusion (10/08/2024 [...] AM EDT 10/08/2024 7:52 AM EDT Narrative [facility] - 10/08/2024 8:34 AM EDT Post-transfusion Eileen Schroeder MD, PhD LAB BLOOD ORDERABLES Final Result [facility] [address] * Antibody Screen (10/08/2024 7:41 AM EDT) Antibody Screen Negative 10/08/2024 8:26 AM EDT [facility] Blood 10/08/2024 7:41 AM EDT 10/08/2024 7:57 AM EDT Narrative [facility] - 10/08/2024 8:32 AM EDT Testing performed by [facility] Transfusion Service Eileen Schroeder MD, PhD BLOOD BANK TEST ORDER PAL Final Result Performing Organization Address City/[facility]/ZIP Co de Phone Number [facility] [address] [facility]. [address] * ABO/Rh (10/08/2024 7:41 AM EDT) ABO Grouping O 10/08/2024 8:14 AM EDT [facility] Rh Type Positive 10/08/2024 8:14 AM EDT [facility] Blood 10/08/2024 7:41 AM EDT 10/08/2024 7:57 AM EDT Eileen Schroeder MD, PhD BLOOD BANK TEST ORDER PAL Final Result [facility] [address] [facility] * (ABNORMAL) Lactate dehydrogenase (10/08/2024 5:36 AM EDT) LD 102(L) 110 - 270 U/L 10/08/2024 8:20 AM EDT [facility] Plasma 10/08/2024 5:36 AM EDT 10/08/2024 7:58 AM EDT us Angie Blanchard MD LAB BLOOD ORDERABLES Final Res ult Performing Organization Address [facility] Co de Phone Number [facility] [address] [facility] * (ABNORMAL) Protime-INR (10/08/2024 5:36 AM [...] ORDERABLES Final Result Performing Organization Address [facility] Co de Phone Number [facility] [address] [facility] * (ABNORMAL) Hepatic Function Panel (10/08/2024 [...] Final Result Performing Organization Address City/[facility]/ZIP Co de Phone Number [facility] [address] [facility]. [address] * Magnesium (10/08/2024 5:36 AM EDT) Magnesium 1.9 1.5 - 2.5 mg/dL 10/08/2024 6:25 AM EDT [facility] Plasma 10/08/2024 5:36 AM EDT 10/08/2024 5:52 AM EDT Eileen Schroeder MD, PhD LAB BLOOD ORDERABLES Final Result Performing Organization Address [facility] Co de Phone Number [facility] [address] [place] [address] * (ABNORMAL) CBC (10/08/2024 5:36 AM EDT) [...] per review criteria approved by the laboratory diploma medical assistant. us Eileen Schroeder MD, PhD LAB BLOOD ORDERABLES Final Result Performing Organization Address City/[facility]/ZIP Co de Phone Number [facility] [address] * Vancomycin, random (10/08/2024 5:36 AM EDT) Vancomycin Random 16.0 ug/mL 10/08/2024 6:20 AM EDT [facility] Comment:Reference range not established for this test. Plasma 10/08/2024 5:36 AM EDT 10/08/2024 5:52 AM EDT us Jodi FreireD LAB BLOOD ORDERABLES Final Result Performing Organization Address City/[facility]/ZIP Co de Phone Number [facility] [address] * (ABNORMAL) Renal Function Panel w/EGFR [...] AM EDT [facility] EGFR 10/08/2024 6:25 AM EDT [facility] [...] Eduardo Cohn, Talia M, Olivia DC, Emerita GUERRERO, Madelyn CRUZ, Felicia LA, et al. A Unifying Approach for GFR Estimation: Recommendations of the NKF-ASN Task Force on Reassessing the inclusion of Race in Diagnosing Kidney Disease. Am J Kidney Dis. 2020. Plasma 10/08/2024 5:36 AM EDT 10/08/2024 5:52 AM EDT us Eileen Schroeder MD, PhD LAB BLOOD ORDERABLES Final Result [facility] [address] [place] [address], [facility] * Urine Drug Confirmation (10/07/2024 10:50 PM EDT) BARBITURATES NOT PRESENT 10/09/2024 1:33 PM EDT HEALTH LAB BENZODIAZEPINES PRESENT 1:33 PM EDT [facility] Nordiazepam 3 ng/mL 10/09/2024 1:33 PM EDT [facility] Temazepam 6 ng/mL 10/09/2024 1:33 PM EDT [facility] CANNABINOIDS NOT PRESENT 10/09/2024 1:33 PM EDT [facility] EPOXY SPECIALIST STIMULANTS NOT PRESENT 1:33 PM EDT [facility] [...] [facility] [address] * Giardia Cryptosporidium Antigens (10/07/2024 10:50 [...] S Final Result Performing Organization Address [facility] Co de Phone Number [facility] [address] [facility]. [address] * (ABNORMAL) Urine Drug Screen Reflex [...] eveloped and its performance characteristics determined by Good [...] eveloped and its performance characteristics determined by Good [...] Result [facility] [address] [place] [id number] * Comprehensive Drug Screen (10/07/2024 10:50 PM EDT) Creatinine, Ur CANCELED mg/dL 10/08/2024 7:09 AM EDT [facility] Comment:The released value 8 7.30 was canceled by YAQUELIN on 10/08/2024 07:09 BARBITURATES CANCELED [facility] Butalbital CANCELED [facility] Phenobarbital CANCELED [facility] Secobarbital CANCELED [facility] BENZODIAZEPINES CANCELED [facility] Alprazolam CANCELED [facility] Clonazepam CANCELED [facility] Diazepam CANCELED [facility] Alpha-Hydroxyalprazo mcknight CANCELED [facility] Lorazepam CANCELED [facility] Midazolam CANCELED [facility] Nordiazepam CANCELED [facility] Oxazepam CANCELED [facility] Temazepam CANCELED [facility] CANNABINOIDS CANCELED [facility] THC-COOH CANCELED [facility] EPOXY SPECIALIST STIMULANTS CANCELED [facility] Cocaine Metabolite(benzoylec gonine) CANCELED [facility] Amphetamine CANCELED [facility] Methamphetamine [facility]ED [facility] MDA [facility]ELED [facility] MDEA CANCELED [facility] Phencyclindine (PCP) CANCELED [facility] OPIOID ANALGESICS CANCELED [facility] Heroin Metabolite(6-RAMONA) CANCELED [facility] Codeine CANCELED [facility] Morphine CANCELED [facility] Hydrocodone CANCELED [facility] Hydromorphone CANCELED [facility] Oxycodone CANCELED [facility] Oxymorphone CANCELED [facility] Meperidine CANCELED [facility] Normeperidine CANCELED [facility] Methadone CANCELED [facility] Methadone Metabolite (EDDP) CANCELED [facility] Tramadol CANCELED [facility] Fentanyl [facility]CELED [facility] Norfentanyl CANCELED [facility] Sufentanil CANCELED [facility] OPIOID ANTAGONISTS CANCELED [facility] Buprenorphine CANCELED [facility] Norbuprenorphine CANCELED [facility] Naltrexone [facility]ELED [facility] Naloxone [facility]ELED [facility] SEDATIVES/MUSCLE RELAXANTS CANCELED [facility] Carisoprodol [facility]ELED [facility] Meprobamate CANCELED [facility] TRICYCLIC ANTIDEPRESSANTS CANCELED [facility] Amitriptyline [facility]ELED [facility] Clomipramine CAN[facility]ELED [facility] Desipramine CANCELED [facility] Doxepin CANCELED [facility] Imipramine CANCELED [facility] Nortriptyline [facility] Urine Creatinine CANCELED mg/dL HEALTH LAB Nitrite CANCELED [facility] Glutaraldehyde CANCELED [facility] pH CANCELED 10/08/2024 7:09 AM EDT [facility] Comment:The released value 5 .6 was canceled by YAQUELIN on 10/08/2024 07:09 Specific Valdez CANCELED 10/09/19 7:09 AM EDT [facility] Comment:The released value 1 .009 was canceled by MABLEE on 10/08/2024 07:09 Bleach CANCELED [facility] Pyridinium Chlorochromate CANCELED [facility] Urine 10/07/2024 10:5 0 PM EDT 10/08/2024 2:07 AM EDT Narrative [facility] - 10/08/2024 7:09 AM EDT See accn [id number] Gerri Peterson MD URINE ORDERABLES Edited Result - Final Performing Organization Address City/[facility]/ZIP Co de Phone Number [facility] [address] * Ova and Parasite Comprehensive w/ [...] ORDERABLE S Final Result Performing Organization Address City/[facility]/ZIP Co de Phone Number [facility] [address] * Enteric Pathogen Panel (10/07/2024 10:50 [...] FLUIDS AND STOOLS ORDERABLE S Final Result [facility] [address] [id number], [facility] * Hepatitis C Antibody (10/07/2024 6:38 PM EDT) HCV Ab Nonreactive Nonreactive 10/07/2024 7:56 PM EDT [facility] Comment:Health Department no tified in accordance with reportable infectious disease guidelines. Serum 10/07/2024 6:38 PM EDT 10/07/2024 6:52 PM EDT [facility] - 10/07/2024 7:56 PM EDT Antibodies to HCV not detected; does not exclude the possibility of exposure to HCV. Gerri Peterson MD LAB BLOOD ORDERABLES Final Resu lt Performing Organization Address [facility]/ZIP Co de Phone Number [facility] [address] [place] [address]. [address] * Hepatitis B Surface Antibody, Quantitati (10/07/2024 6:38 PM EDT) Hep B S Ab Nonreactive Nonreactive 10/07/2024 8:00 PM EDT [facility] HBSAB NUMBER 7.88 0.00 - 7.99 mIU/mL 10/07/2024 8:00 PM EDT [facility] Serum 10/07/2024 6:38 PM EDT 10/07/2024 6:52 PM EDT [facility] - 10/07/2024 8:00 PM EDT Individual is considered not immune to HBV infection. Gerri Peterson MD LAB BLOOD ORDERABLES Final Resu lt Performing Organization Address [facility] Co de Phone Number [facility] [address] [facility]. [address] * Hepatitis B surface antigen (10/07/2024 6:38 PM EDT) Hep B Surface Ag Nonreactive Nonreactive 10/07/2024 7:51 PM EDT [facility] Comment:Health Department no tified in accordance with reportable infectious disease guidelines. Serum 10/07/2024 6:38 PM EDT 10/07/2024 6:52 PM EDT [facility] - 10/07/2024 7:51 PM EDT Specimen is considered negative for HBsAg. Gerri Peterson MD LAB BLOOD ORDERABLES Final Resu lt Performing Organization Address [facility]/ZIP Co de Phone Number [facility] [address] [facility]. [address] * Hepatitis A Antibody Total (10/07/2024 6:38 PM EDT) Pathologist [facility] Anti-HAV Total (IgG + IgM) Nonreactive 10/07/2024 7:53 PM EDT [facility] Serum 10/07/2024 6:38 PM EDT 10/07/2024 6:52 PM EDT [facility] - 10/07/2024 7:53 PM EDT HAV antibodies not detected Gerri Peterson MD LAB BLOOD ORDERABLES Final Resu lt Performing Organization Address [facility]/ZIP Co de Phone Number [facility] [address] [facility]. [address] * Hepatitis A IgM (10/07/2024 6:38 PM EDT) Pathologist [facility] Hep A IgM Nonreactive Nonreactive 10/07/2024 7:46 PM EDT [facility] Serum 10/07/2024 6:38 PM EDT 10/07/2024 6:52 PM EDT [facility] - 10/07/2024 7:46 PM EDT IgM anti-HAV not detected. Does not exclude the possibility of exposure to or infection with HAV. Levels of IgM anti-HAV may be below the cut-off in early infection. Gerri Peterson MD LAB BLOOD ORDERABLES Final Resu lt Performing Organization Address [facility]/ZIP Co de Phone Number [facility] [address] [facility]. [address] * (ABNORMAL) Lipid Profile (10/07/2024 6:37 PM EDT) [facility] Non-HDL Cholesterol, Calculated See Note 0 - [...] Cholesterol See Note mg/dL 7:42 PM EDT [facility] Comment:Unable to calculate result either because contributing result(s) are outside of reportable range or are not available. Plasma 10/07/2024 6:37 PM EDT 10/07/2024 7:06 PM EDT Narrative [facility] - 10/07/2024 7:42 PM EDT LDL cholesterol calculated using the Friedewald equation. us Gerri Peterson MD LAB BLOOD ORDERABLES Final Resu lt [facility] [address] [place] [address], [facility] * (ABNORMAL) Alpha 1 Antitrypsin AAT Quant & Mutation (10/07/2024 6:37 PM EDT) A-1 Antitrypsin 99(L) 101 - 187 mg/dL 10/09/2024 4:28 AM EDT [facility] A-1 Antitrypsin Pheno Comment 10/10/2024 4:05 PM EDT [facility] Comment: A1A Phenotype is consistent with a heterozygous phenotype consisting of one M (normal) allele and one allele that cannot be identified at this time. The unknown allele is not consistent with Z (deficient), S (deficient), or F (deficient). MM Phenotype is considered to be normal , producing normal serum levels of bybqp-6-sywyzoro inhibitor and not associated with clinical disease. [...] 10/10/2024 4:08 PM EDT PERFORMED AT: [facility] [address] [id number] [employer]OO[employer] HELPER: Bassam Khalil, PhD PHONE: [phone] PERFORMED AT: [facility] [address] [id number] [employer] HELPER: Mandy Abdul MD PHONE: [phone] us Gerri Peterson MD LAB BLOOD ORDERABLES Final Resu lt [facility] [address] [place] [address], [facility] * (ABNORMAL) CMV IgG Antibody (10/07/2024 6:37 PM EDT) CMV IgG Positive(A ) Negative 10/07/2024 8:26 PM EDT [facility] CMV IGG NUM 8.40(H) 0.00 - 0.59 U/mL 10/07/2024 8:26 PM EDT [facility] Serum 10/07/2024 6:37 PM EDT 10/07/2024 6:50 PM EDT us Gerri Peterson MD LAB BLOOD ORDERABLES Final Resu lt [facility] [address] [facility]. [address] * HIV-1 and HIV-2 Antibodies w Reflex (10/07/2024 6:37 PM EDT) HIV 1+2 AB/AGN Nonreactive Nonreactive 10/07/2024 7:54 PM EDT [facility] Serum 10/07/2024 6:37 PM EDT 10/07/2024 7:06 PM EDT Narrative [facility] - 10/07/2024 7:54 PM EDT \HIVRNR us Gerri Peterson MD LAB BLOOD ORDERABLES Final Resu lt [facility] [address] [facility]. [address] * TSH (Thyroid Stimulating Hormone) (10/07/2024 6:37 PM EDT) TSH 0.81 0.45 - 4.12 uIU/mL 10/07/2024 8:17 PM EDT [facility] Serum 10/07/2024 6:37 PM EDT 10/07/2024 6:50 PM EDT Gerri Peterson MD LAB BLOOD ORDERABLES Final Resu lt [facility] [address] * Katie-Watkins virus early antigen antibody, IgG (10/07/2024 6:37 PM EDT) [facility] EBV Early Antigen Ab, IgG <9.0 0.0 - 8.9 U/mL 10/09/2024 2:16 PM EDT [facility] Comment: Negative < 9.0 Equivocal 9.0 - 10.9 Positive >10.9 Serum Frozen 10/07/2024 6:37 PM EDT 10/09/2024 3:07 PM EDT Narrative [facility] - 10/09/2024 3:07 PM EDT PERFORMED AT: [address] [id number] [employer] HELPER: Bassam Khalil, PhD PHONE: [phone] Gerri Peterson MD LAB BLOOD ORDERABLES Final Resu lt Performing Organization Address [facility] de Phone Number [facility] [address] * (ABNORMAL) Varicella zoster antibody, IgG (10/07/2024 6:37 PM EDT) [facility] Varicella IgG Positive( A) Negative S/CO [...] Final Resu lt Performing Organization Address [facility] Co de Phone Number [facility] [address] * Toxoplasma gondii antibody, IgG (10/07/2024 6:37 PM EDT) Toxoplasma Gondii IgG <3.0 0.0 - 7.1 IU/mL 10/09/2024 7:53 AM EDT [facility] Comment: Negative <7.2 Equivocal 7.2 - 8.7 Positive >8.7 Serum 10/07/2024 6:37 PM EDT 10/09/2024 8:07 AM EDT Narrative [facility] - 10/09/2024 8:07 AM EDT PERFORMED AT: [facility] [id number] [employer] HELPER: Bassam Khalil, PhD PHONE: [phone] Gerri Peterson MD LAB BLOOD ORDERABLES Final Resu lt Performing Organization Address City/[facility]/ZIP Co de Phone Number [facility] [address] [place] [address]. 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 Serum 10/07/2024 6:37 PM EDT 10/07/2024 6:50 PM EDT Gerri Peterson MD LAB BLOOD ORDERABLES Final Resu lt [facility] [address] [facility]. [address] * Strongyloides Ab (10/07/2024 6:37 PM EDT) Strongyloides Ab Negative Negative 10/11/19 11:51 AM EDT [facility] Serum 10/07/2024 6:37 PM EDT 10/10/2024 12:07 PM EDT [facility]arrative [facility] - 10/10/2024 12:07 PM EDT PERFORMED AT: [facility] [id number] [employer] HELPER: Mandy Abdul MD PHONE: [phone] us Gerri Peterson MD LAB BLOOD ORDERABLES Final Resu lt [facility] [address] [place] [place], [place] [address] * Phosphatidylethanol Confirmation, B (10/07/2024 [...] its performance characteristics determined by [facility] in a manner consistent with CLIA requirements. This test has not been cleared or approved by the U.S. Food and Drug Administration. Test Performed by: [facility] [address] [place] [address] Tonguer: Kathy Ortiz Ph.D.; CLIA# [id number] Whole Blood 10/07/2024 6:37 PM EDT 10/10/2024 10:42 AM EDT Gerri Peterson MD LAB BLOOD ORDERABLES Final Resu lt [facility] [address] [facility] [place] [address], [facility] * (ABNORMAL) MMR(IgG) Panel (Measles, Mumps, Rubella) (10/07/2024 6:37 PM EDT) Pathologist [facility] Mumps IgG Positive 10/07/2024 8:26 PM EDT [...] lt [facility] [address] [facility]. [address] * IgA (10/07/2024 6:37 PM EDT) IgA 227.0 70.0 - 400.0 mg/dL 10/08/2024 11:07 AM EDT [facility] Comment:Please interpret the se findings in conjunction with clinical findings, protein electrophoresis, and immunotyping/immunofixation results. Serum 10/07/2024 6:37 PM EDT 10/07/2024 6:50 PM EDT Gerri Peterson MD LAB BLOOD ORDERABLES Final Resu lt Performing Organization Address [facility] Co de Phone Number [facility] [address] [facility]. [address] * Ethanol, Serum (10/07/2024 6:37 PM EDT) Ethanol <10 0 - 10 mg/dL 10/07/2024 8:36 PM EDT [facility] Serum 10/07/2024 6:37 PM EDT 10/07/2024 6:50 PM EDT Gerri Peterson MD LAB BLOOD ORDERABLES Final Resu lt Performing Organization Address [facility] Co de Phone Number [facility] [address] [facility] * ABO/Rh - Second (10/07/2024 6:37 PM EDT) ABO Grouping O 10/07/2024 7:16 PM EDT [facility] Rh Type Positive 10/07/2024 7:16 PM EDT [facility] Blood 10/07/2024 6:3 7 PM EDT 10/07/2024 6:56 PM EDT Narrative [facility] - 10/07/2024 7:18 PM EDT This is not a duplicate order. It is required that ABO be drawn twice for LIVER TRANSPLANT Gerri Peterson MD BLOOD BANK TEST ORDERABLES Denisse l Result [facility] [address] * ABO/Rh- Initial (10/07/2024 6:37 PM EDT) ABO Grouping O 10/07/2024 7:59 PM EDT [facility] Rh Type Positive 10/07/2024 7:59 PM EDT [facility] Blood 10/07/2024 6:37 PM EDT 10/07/2024 7:25 PM EDT Gerri Peterson MD BLOOD BANK TEST ORDERABLES Denisse l Result Performing Organization Address City/[facility] Co de Phone Number [facility] [address] * X-ray Mandible minimum 4-views (10/07/2024 [...] EXAM: US ABDOMEN COMPLETE EXAM: US DUPLEX [id number] COMPLETE INDICATION: elevated bilirubin COMPARISON: Ultrasound and [...] EXAM: US ABDOMEN COMPLETE EXAM: US DUPLEX [id number] COMPLETE INDICATION: elevated bilirubin COMPARISON: Ultrasound and [...] 10/07/2024 4:26 PM EDT us Bisi Hernandez [facility] [place] ORDERABLES Final Result * US Duplex Veu-Lzw-Ctpqwet Comp (10/07/2024 3:48 PM EDT) Anatomical Region [...] EXAM: US ABDOMEN COMPLETE EXAM: US DUPLEX [id number] COMPLETE INDICATION: elevated bilirubin COMPARISON: Ultrasound and [...] EXAM: US ABDOMEN COMPLETE EXAM: US DUPLEX [id number] COMPLETE INDICATION: elevated bilirubin COMPARISON: Ultrasound and [...] - 15.1 seconds 10/07/2024 6:55 AM EDT [facility] INR 2.4(H) 0.9 - 1.1 10/07/2024 6:55 AM EDT [facility] Comment: RECOMMENDED THERAPEUTIC RANGES USING INR : Stable oral anticoagulant therapy: 2.0 - 3.0 Mechanical prosthetic heart valve: 2.5 - 3.5 Recurrent acute myocardial infarction: 2.5 - 3.5 Plasma 10/07/2024 6:00 AM EDT 10/07/2024 6:39 AM EDT us Eileen Schroeder MD, PhD LAB BLOOD ORDERABLES Final Result [facility] [address] * (ABNORMAL) Hepatic Function Panel (10/07/2024 [...] Final Result [facility] [address] * Magnesium (10/07/2024 6:00 AM EDT) Magnesium 1.7 1.5 - 2.5 mg/dL 10/07/2024 7:10 AM EDT [facility] Plasma 10/07/2024 6:00 AM EDT 10/07/2024 6:39 AM EDT us Eileen Schroeder MD, PhD LAB BLOOD ORDERABLES Final Result [facility] [address] * (ABNORMAL) CBC (10/07/2024 6:00 AM [...] - 11.5 fL 10/07/2024 7:55 AM EDT [facility] Whole Blood 10/07/2024 6:00 AM EDT 10/07/2024 6:40 AM EDT Narrative [facility] - 10/07/2024 7:55 AM EDT Peripheral blood smear was scanned per review criteria approved by the laboratory diploma medical assistant. us Eileen Schroeder MD, PhD LAB BLOOD ORDERABLES Final Result [facility] [address] [place] [address], [facility] * AFP Tumor Marker (10/07/2024 6:00 AM EDT) AFP-Tumor Marker 2.0 0.0 - 9.0 ng/mL 10/07/2024 7:11 AM EDT [facility] Serum 10/07/2024 6:00 AM EDT 10/07/2024 6:39 AM EDT Narrative [facility] - 10/07/2024 7:11 AM EDT The testing method for AFP is a chemiluminescent immunoassay manufactured by [employer] Concentrations of AFP obtained by different assay methods or kits may vary and cannot be used interchangeably. AFP results cannot be interpreted as absolute evidence of the presence or absence of malignant disease. Shila Rivera MD LAB BLOOD ORDERABLES Final Resul t Performing Organization Address City/[facility]/ZIP Co de Phone Number [facility] [address] [facility]. [address] * Vancomycin, random (10/07/2024 6:00 AM EDT) Pathologist [facility] Vancomycin Random 21.1 ug/mL 10/07/2024 7:08 AM EDT [facility] Comment:Reference range not established for this test. Plasma 10/07/2024 6:00 AM EDT 10/07/2024 6:39 AM EDT Kiet Gardiner PharmD LAB BLOOD ORDERABLES Final Re sult Performing Organization Address [facility]/ZIP Co de Phone Number [facility] [address] * (ABNORMAL) Renal Function Panel w/EGFR [...] ORDERABLES Final Result [facility] [address] [id number], [facility] * Osmolality (10/06/2024 2:50 PM EDT) Osmolality, Measured 304 278 - 305 mOsm/kg 10/06/2024 3:49 PM EDT [facility] Serum 10/06/2024 2:50 PM EDT 10/06/2024 2:56 PM EDT Chari Vanegas MD LAB BLOOD ORDERABLES Final Resul t [facility] [address] [place] [address], [facility] * CT Head WO contrast (10/06/2024 [...] ORDERABLES Final Result Performing Organization Address [facility] de Phone Number [facility] [address] [place] [address] * Potassium, urine, random (10/06/2024 1:25 PM EDT) Potassium Urine Random 50.0 mmol/L 10/06/2024 1:56 PM EDT [facility] Comment:Reference range not established for this test. Urine 10/06/2024 1:25 PM EDT 10/06/2024 1:32 PM EDT Chari Vanegas MD URINE ORDERABLES Final Result Performing Organization Address [facility] Co de Phone Number [facility] [address] [place] [address] * Sodium, urine, random (10/06/2024 1:25 PM EDT) Sodium, Ur <10 mmol/L 10/06/2024 1:56 PM EDT [facility] Comment:Reference range not established for this test. Urine 10/06/2024 1:25 PM EDT 10/06/2024 1:32 PM EDT us Chari Vanegas MD URINE ORDERABLES Final Result Performing Organization Address [facility] Co de Phone Number [facility] [address] * Creatinine, Urine, Random (10/06/2024 1:25 PM EDT) Creatinine, Urine 87.40 mg/dL 10/06/2024 1:56 PM EDT [facility] Comment:Reference range not established for this test. Urine 10/06/2024 1:25 PM EDT 10/06/2024 1:32 PM EDT us Chari Vanegas MD URINE ORDERABLES Final Result Performing Organization Address [facility] Co de Phone Number [facility] [address] * Osmolality, Urine (10/06/2024 1:25 PM EDT) Osmolality, Ur 386 50 - 1,200 mOsm/kg 10/06/2024 1:55 PM EDT [facility] Urine 10/06/2024 1:25 PM EDT 10/06/2024 1:32 PM EDT us Chari Vanegas MD URINE ORDERABLES Final Result Performing Organization Address [facility] de Phone Number [facility] [address] [facility]. [address] * Urine Drug Confirmation (10/06/2024 11:51 AM EDT) BARBITURATES NOT PRESENT 10/09/2024 3:23 PM EDT [facility] Comment:Results were recheck ed. BENZODIAZEPINES PRESENT 3:23 PM EDT [facility] Nordiazepam 3 ng/mL 10/09/2024 3:23 PM EDT [facility] Comment:Results were recheck ed. Temazepam 8 ng/mL 10/09/2024 3:23 PM EDT [facility] Comment:Results were recheck ed. CANNABINOIDS NOT PRESENT 10/09/2024 3:23 PM EDT [facility] EPOXY SPECIALIST STIMULANTS NOT PRESENT 3:23 PM EDT [facility] OPIOID ANALGESICS PRESENT 025 3:23 PM EDT [facility] Oxycodone 329 ng/mL 10/09/2024 3:23 PM EDT [facility] Oxymorphone 61 ng/mL 10/09/2024 3:23 PM EDT [facility] Tramadol >1000 ng/mL 10/09/2024 3:23 PM EDT [facility] OPIOID ANTAGONISTS NOT PRESENT 10/09 3:23 PM EDT [facility] SEDATIVES/MUSCLE RELAXANTS NOT PRESENT 10/09/2024 3:23 PM EDT [facility] TRICYCLIC ANTIDEPRESSANTS NOT PRESENT 10/09/2024 3:23 PM EDT [facility] Urine 10/06/2024 11:5 1 AM EDT 10/06/2024 1:13 PM EDT Bisi Hernandez DO URINE ORDERABLES Final Result Performing Organization Address City/State/[facility] Co de Phone Number [facility] [address] * (ABNORMAL) Urine Drug Screen Reflex [...] eveloped and its performance characteristics determined by Good [...] eveloped and its performance characteristics determined by Good [...] ORDERABLES Final Result [facility] [address] [place] [address], [facility] * Chloride, urine, random (10/06/2024 11:51 AM EDT) Chloride, Ur <15 mmol/L 10/06/2024 1:13 PM EDT [facility] Comment:Reference range not established for this test. Urine 10/06/2024 11:5 1 AM EDT 10/06/2024 11:57 AM EDT us Bisi Akella DO URINE ORDERABLES Final Result Performing Organization Address City/[facility] Co de Phone Number [facility] [address] [place] [address]. [address] * Potassium, urine, random (10/06/2024 11:51 AM EDT) Potassium Urine Random 49.0 mmol/L 10/06/2024 1:13 PM EDT [facility] Comment:Reference range not established for this test. Urine 10/06/2024 11:5 1 AM EDT 10/06/2024 11:57 AM EDT Bisi Hernandez DO URINE ORDERABLES Final Result Performing Organization Address [facility] de Phone Number [facility] [address] [place] [address]. [address] * Sodium, urine, random (10/06/2024 11:51 AM EDT) Sodium, Ur <10 mmol/L 10/06/2024 1:13 PM EDT [facility] Comment:Reference range not established for this test. Urine 10/06/2024 11:5 1 AM EDT 10/06/2024 11:57 AM EDT Bisi Hernandez DO URINE ORDERABLES Final Result Performing Organization Address [facility] de Phone Number [facility] [address] [facility]. [address] * Urinalysis w/Rfl to Microscopic (10/06/2024 11:51 AM EDT) Color, UA Yellow Yellow,Straw 10/06/2024 12:25 PM EDT [facility] Clarity, UA Clear Clear 10/06/2024 12:25 PM EDT [facility] Specific [place], UA 1.014 1.005 - 1.035 10/06/2024 12:25 [...] Final Result [facility] [address] [place] [address], [facility] * Lactic Acid, STAT (10/06/2024 7:38 AM EDT) Lactate 0.9 0.5 - 2.2 mmol/L 10/06/2024 8:05 AM EDT [facility] Plasma 10/06/2024 7:38 AM EDT 10/06/2024 7:42 AM EDT Chari Vanegas MD LAB BLOOD ORDERABLES Final Resul t [facility] [address] [place] [address] * (ABNORMAL) CBC, STAT (10/06/2024 7:37 AM [...] t [facility] [address] [place] [address], [facility] * (ABNORMAL) Comprehensive [...] - 1.30 mg/dL 10/06/2024 8:16 AM EDT [facility] Glucose 98 70 - 100 mg/dL 10/06/2024 8:16 AM EDT [facility] Calcium 9.5 8.6 - 10.3 mg/dL 10/06/2024 8:16 AM EDT [facility] Total Bilirubin 14.3(H) 0.0 - 1.5 mg/dL 10/06/2024 8:16 AM EDT [facility] AST 57(H) 13 - 39 U/L 10/06/2024 8:16 AM EDT [facility] ALT 29 7 - 52 U/L 10/06/2024 8:16 AM EDT [facility] Alkaline Phosphatase 158(H) 36 - 125 U/L 10/06/2024 8:16 AM EDT [facility] Total Protein 5.6(L) 6.4 - 8.9 g/dL 10/06/2024 8:16 AM EDT [facility] Albumin 3.6 3.5 - 5.7 g/dL 10/06/2024 8:16 AM EDT [facility] Osmolality, Calculated 286 278 - 305 mOsm/kg 10/06/2024 8:16 AM EDT [facility] EGFR 22 10/06/2024 8:16 AM EDT [facility] Comment:As of 2021, [...] Final Resul t [facility] [address] [place] [address], [facility] * (ABNORMAL) Venous [...] - 3.0 mmol/L 10/06/2024 7:46 AM EDT [facility] %HBO2-Line Draw 69.8 40.0 - 70.0 [...] ORDERABLES Final Resul t Performing Organization Address City/State/[facility] Co de Phone Number [facility] [address] * (ABNORMAL) Venous Blood Gas, Line/Syringe, [...] 4:03 AM EDT 10/06/2024 4:12 AM EDT [facility] BLOOD ORDERABLES Final Resul t Performing Organization Address [facility] de Phone Number [facility] [address] * (ABNORMAL) Protime-INR (10/06/2024 4:01 AM [...] 4:01 AM EDT 10/06/2024 4:11 AM EDT [facility] BLOOD ORDERABLES Final Resul t Performing Organization Address City/[facility] Co de Phone Number [facility] [address] * (ABNORMAL) Hepatic Function Panel, AM (10/06/2024 [...] 4:01 AM EDT 10/06/2024 4:22 AM EDT [facility] BLOOD ORDERABLES Final Resul t Performing Organization Address [facility] de Phone Number [facility] [address] * Magnesium (10/06/2024 4:01 AM EDT) Magnesium 1.8 1.5 - 2.5 mg/dL 10/06/2024 4:57 AM EDT [facility] Plasma 10/06/2024 4:01 AM EDT 10/06/2024 4:22 AM EDT [facility] BLOOD ORDERABLES Final Resul t Performing Organization Address [facility] de Phone Number [facility] [address] [facility]. [address] * (ABNORMAL) Renal Function Panel w/EGFR [...] 3.5 - 5.7 g/dL 10/06/2024 4:57 AM [facility] Osmolality, Calculated 286 278 - 305 mOsm/kg 10/06/2024 4:57 AM EDT [facility] EGFR 22 10/06/2024 4:57 AM [facility] Comment:As of 2021, [...] M, Olivia [place], Emerita [place], Madelyn [place], Water Quality Control Engineer [place], et al. A Unifying Approach for GFR Estimation: Recommendations of the NKF-ASN Task Force on Reassessing the inclusion of Race in Diagnosing Kidney Disease. Am J Kidney Dis. 2020. Plasma 10/06/2024 4:01 AM EDT 10/06/2024 4:22 AM EDT us Bisi Mary [facility] BLOOD ORDERABLES Final Resul t [facility] [address] [place] [address], [facility] * (ABNORMAL) CBC (10/06/2024 4:01 [...] 4:01 AM EDT 10/06/2024 4:11 AM EDT [facility] BLOOD ORDERABLES Final Resul t [facility] [address] [facility]. [address] * Hepatitis C Antibody (10/06/2024 4:01 AM EDT) HCV Ab Nonreactive Nonreactive 10/06/2024 5:12 AM EDT [facility] Comment:Health Department no tified in accordance with reportable infectious disease guidelines. Serum 10/06/2024 4:01 AM EDT 10/06/2024 4:11 AM EDT Narrative [facility] - 10/06/2024 5:12 AM EDT Antibodies to HCV not detected; does not exclude the possibility of exposure to HCV. [facility] BLOOD ORDERABLES Final Resul t Performing Organization Address [facility]/ZIP Co de Phone Number [facility] [address] [facility]. [address] * (ABNORMAL) Hepatitis B Surface Antibody, [...] Individual is considered immune to HBV infection. [facility] BLOOD ORDERABLES Final Resul t [facility] [address] [facility]. [address] * Hepatitis B surface antigen (10/06/2024 4:01 AM EDT) Hep B Surface Ag Nonreactive Nonreactive 10/06/2024 5:07 AM EDT [facility] Comment:Health Department no tified in accordance with reportable infectious disease guidelines. Serum 10/06/2024 4:01 AM EDT 10/06/2024 4:11 AM EDT [facility] - 10/06/2024 5:07 AM EDT Specimen is considered negative for HBsAg. [facility] BLOOD ORDERABLES Final Resul t Performing Organization Address [facility] Co de Phone Number [address] * Hepatitis A Antibody Total (10/06/2024 4:01 AM EDT) Anti-HAV Total (IgG + IgM) Nonreactive 10/06/2024 5:08 AM EDT [facility] Serum 10/06/2024 4:01 AM EDT 10/06/2024 4:11 AM EDT [facility] - 10/06/2024 5:08 AM EDT HAV antibodies not detected [facility] BLOOD ORDERABLES Final Resul t Performing Organization Address [facility] Co de Phone Number [address] * Hepatitis A IgM (10/06/2024 4:01 AM EDT) Hep A IgM Nonreactive Nonreactive 10/06/2024 5:02 AM EDT [facility] Serum 10/06/2024 4:01 AM EDT 10/06/2024 4:11 AM EDT [facility] - 10/06/2024 5:02 AM EDT IgM anti-HAV not detected. Does not exclude the possibility of exposure to or infection with HAV. Levels of IgM anti-HAV may be below the cut-off in early infection. [facility] BLOOD ORDERABLES Final Resul t [facility] [address] * (ABNORMAL) Salicylate Level (10/06/2024 4:01 AM EDT) Pathologist [facility] Salicylate Lvl <3(L) 10 - 30 mg/dL 10/06/2024 4:58 AM EDT [facility] Serum 10/06/2024 4:01 AM EDT 10/06/2024 4:22 AM EDT [facility] BLOOD ORDERABLES Final Resul t Performing Organization Address [facility] de Phone Number [facility] [address] [facility]. [address] * AFP Tumor Marker (10/06/2024 4:01 AM EDT) [facility] AFP-Tumor Marker 2.6 0.0 - 9.0 ng/mL 10/06/2024 4:55 AM EDT [facility] Serum 10/06/2024 4:01 AM EDT 10/06/2024 4:22 AM EDT Narrative [facility] - 10/06/2024 4:55 AM EDT The testing method for AFP is a chemiluminescent immunoassay manufactured by [employer] Concentrations of AFP obtained by different assay methods or kits may vary and cannot be used interchangeably. AFP results cannot be interpreted as absolute evidence of the presence or absence of malignant disease. [facility] BLOOD ORDERABLES Final Resul t Performing Organization Address City/[facility] Co de Phone Number [facility] [address] [facility]. [address] * Upper Respiratory Viral/Bacterial Panel-PATTERN CLERK Only (10/06/2024 3:12 AM EDT) [facility] Adenovirus Not Detected Not Detected 10/06/2024 [...] Test results have been sent to the [facility] in accordance with state requirements. For a fact sheet for healthcare providers, see https://www.fda.gov/media/008211/download. For a fact sheet for patients, see https://www.fda.gov/media/268604/download. Nasopharyngeal Swab NASOPHARYNGEAL SWAB / Unknown 10/06/2024 3:12 AM EDT 10/06/2024 5:41 PM EDT Comment:PATTERN CLERK us Bisi Hernandez DO BODY FLUIDS AND STOOLS ORDERABLE S Final Result [facility] [address] * X-ray Portable Chest (10/06/2024 1:16 [...] 10/06/2024 2:33 AM EDT Bisi Hernandez DO [facility] ORDERABLE S Final Result * Phosphatidylethanol Confirmation, B (10/06/2024 1:04 AM EDT) PETH 16:0/18.1 (POPETH) <10 Cutoff: 10 ng/mL 10/10/2024 3:11 AM EDT [facility] Comment: Phosphatidylethanol (PEth) homologues result interpretation [...] PEth Interpretation Negative. 10/10 3:11 AM EDT [facility] Comment: ADDITIONAL INFORMATION This report is intended for use in clinical monitoring and management of patients. It is not intended for use in employment-related testing. This test was developed and its performance characteristics determined by [facility] in a manner consistent with CLIA requirements. This test has not been cleared or approved by the U.S. Food and Drug Administration. Test Performed by: [facility] [address] [place] [address] Tonguer: Kathy Ortiz Ph.D.; CLIA# [id number] Whole Blood 10/06/2024 1:04 AM EDT 10/10/2024 3:11 AM EDT [facility] BLOOD ORDERABLES Final Resul t Performing Organization Address City/[facility]/ZIP Co de Phone Number [facility] [address] [place] [address] * (ABNORMAL) Acetaminophen Level (10/06/2024 1:04 AM EDT) Acetaminophen Level <10(L) 10 - 30 ug/mL 10/06/2024 2:08 AM EDT [facility] Serum 10/06/2024 1:04 AM EDT 10/06/2024 1:30 AM EDT [facility] BLOOD ORDERABLES Final Resul t Performing Organization Address [facility] Co de Phone Number [facility] [address] [place] [address] * Ethanol, Serum (10/06/2024 1:04 AM EDT) Ethanol <10 0 - 10 mg/dL 10/06/2024 2:08 AM EDT [facility] Serum 10/06/2024 1:04 AM EDT 10/06/2024 1:30 AM EDT Bisi Hernandez DO LAB BLOOD ORDERABLES Final Resul t Performing Organization Address City/[facility]/ZIP Co de Phone Number [facility] [address] * #2 Blood culture-Peripheral site 2 [...] S Final Result Performing Organization Address [facility] Co de Phone Number [facility] [address] * #1 Blood culture-Peripheral site 1 [...] ORDERABLE S Final Result Performing Organization Address City/[facility]/ZIP Co de Phone Number [facility] [address] * Ammonia (10/06/2024 1:04 AM EDT) Ammonia 77 27 - 90 ug/dL 10/06/2024 2:00 AM EDT [facility] Plasma 10/06/2024 1:04 AM EDT 10/06/2024 1:30 AM EDT us [employer] DO LAB BLOOD ORDERABLES Final Resul t Performing Organization Address City/[facility]/ZIP Co de Phone Number [facility] [address] [facility]. [address] * Thyroid Function [place] (10/06/2024 1:04 AM EDT) TSH 0.84 0.45 - 4.12 uIU/mL 10/06/2024 2:20 AM EDT [facility] Serum 10/06/2024 1:04 AM EDT 10/06/2024 1:39 AM EDT us Next [employer] DO LAB BLOOD ORDERABLES Final Resul t Performing Organization Address [facility] Co de Phone Number [facility] [address] [facility]. [address] * (ABNORMAL) Protime-INR (10/06/2024 1:04 AM [...] AM EDT 10/06/2024 1:30 AM EDT us Next [employer] DO LAB BLOOD ORDERABLES Final Resul t Performing Organization Address [facility] Co de Phone Number [facility] [address] [facility]. [address] * Lactic Acid, STAT (10/06/2024 1:04 AM EDT) Lactate 1.2 0.5 - 2.2 mmol/L 10/06/2024 1:59 AM EDT [facility] Plasma 10/06/2024 1:04 AM EDT 10/06/2024 1:30 AM EDT us Bisi Hernandez LAB BLOOD ORDERABLES Final Resul t [facility] [address] [place] [address], [facility] * (ABNORMAL) CBC, STAT (10/06/2024 1:04 [...] EDT 10/06/2024 1:31 AM EDT us Bisi Mary [facility] LAB BLOOD ORDERABLES Final Resul t [facility] [address] [place] [address], [facility] * (ABNORMAL) Comprehensive [...] - 25 mg/dL 10/06/2024 2:05 AM EDT [facility] Creatinine 3.54(H) 0.60 - 1.30 mg/dL 10/06/2024 2:05 AM EDT [facility] Glucose 116(H) 70 - 100 mg/dL 10/06/2024 2:05 AM EDT [facility] Calcium 9.0 8.6 - 10.3 mg/dL 10/06/2024 2:05 AM EDT [facility] Total Bilirubin 14.8(H) 0.0 - 1.5 mg/dL 10/06/2024 2:05 AM EDT [facility] AST 61(H) 13 - 39 U/L 10/06/2024 2:05 AM EDT [facility] ALT 33 7 - 52 U/L 10/06/2024 2:05 AM EDT [facility] Alkaline Phosphatase 174(H) 36 - 125 U/L 10/06/2024 2:05 AM EDT [facility] Total Protein 5.2(L) 6.4 - 8.9 g/dL 10/06/2024 2:05 AM EDT [facility] Albumin 3.3(L) 3.5 - 5.7 g/dL 10/06/2024 2:05 AM EDT [facility] Osmolality, Calculated 282 278 - 305 mOsm/kg 10/06/2024 2:05 AM EDT [facility] EGFR 21 10/06/2024 2:05 AM EDT [facility] Comment:As [...] Final Resul t [facility] [address] [place] [address], [facility] documented in this encounter Visit [...] Patient/family refused)1335 (Given - Provider: Anu Wolff RN)2102 (Given - Provider: Chelsy Bush, ЮЛИЯ) 0636 [...] RN) 0849 (Given - Provider: Suzette Arciniega RN)1300 (Due)2100 (Due) oxyCODONE (ROXICODONE) immediate release tablet 5 mg (COMPLETED) 5 mg, Oral, Once, On Sun10/15/24 at 0100, For 1 dose 0102 (Given - Provider: Minh Trores RN) oxyCODONE (ROXICODONE) immediate release tablet 5 mg (COMPLETED) 5 mg, Oral, Once, On Sun10/15/24 at 1700, For 1 dose 1649 (Given - Provider: Anu Wolff RN) pantoprazole (PROTONIX) EC tablet 40 mg 40 mg, Oral, Every morning before breakfast, First dose on Sun10/06/24 at 0730, Do Not Crush 0820 (Given - Provider: Anu Wolff RN) 0635 (Given - Provider: Chelsy Bush, RN) 0606 (Given - Provider: Soco Milton, RN) potassium chloride (KLOR-CON M20) CR tablet [...] RN)2022 (Given - Provider: Soco Milton, RN) 0849 (Given - Provider: Suzette Arciniega, RN)1300 (Due)2100 (Due) thiamine HCl (VITAMIN B-1) tablet [...] RN) 0833 (Given - Provider: Anu Wolff RN)2023 (Given - Provider: oSco Milton RN) 0849 (Given - Provider: Suzette Arciniega, ЮЛИЯ)2100 (Due) zinc sulfate (ZINCATE) capsule 220 mg 220 mg, Oral, Daily, First dose on Sun10/06/24 at 0900, each capsule contains 50 mg elemental zinc 0820 (Given - Provider: Anu Wolff RN) 0834 (Given - Provider: Anu Wolff RN) 0849 (Given - Provider: Suzette Acriniega RN) PRN Medication Order 10/15/2024 10/16/2024 10/17/2024 [...] RN)0635 (See Alternative - Provider: Chelsy Bush RN)132 (See Alternative - Provider: Anu Wolff, ЮЛИЯ)2030 (See Alternative - Provider: Soco Milton RN) [...] documented as of this encounter Care Teams Mathematical Statistician Relationship Specialty Start Date End Date Enedina Mcguire NP [address] [place] [address] PCP - General Internal Medicine 10/05/24 documented as of this encounter
--- OUTSIDE RECORDS SUMMARY | 2024-10-10 12:01 | XMS_ITS | Encounter Summary ---
Author Organization [facility] Address [address] [place] [address] Care Team Providers Care Rn Military Name Role Phone Enedina Mcguire NP Primary Care Provider [phone] Source Comments This information has been disclosed [...] release of HIV test results or diagnoses. [id number] Reason for Visit * Auth/Cert (Routine) Specialty Diagnoses / Procedures Referred By Shane hernadez Referred To Contact General Internal Medicine Diagnoses [facility] [address] [place] [address] Phone: tel: Referral ID Status Reason Start Date Expiration Date Visits Re quested Visits Authorized [id number] 1 1 Encounter Details Date Type Department Care Team (Late st Contact Info) Description 10/10/2024 12:01 PM EDT Anesthesia Event [facility] ENDOSCOPY [address] [place] [address] Cady Bhat MD [address] [place] [address] Bob Leggett MD [address] [place] [facility] [address] [place] [address] Anesthesia Record Procedure Summary Procedure [...] Recorded In the past 12 months has [employer], [employer], or [employer] threatened to shut off services in your [...] any time in the past 12 m [facility], were you homeless or [...] Bhat MD - 10/10/2024 10:15 AM EDT [facility] DEPARTMENT OF ANESTHESIOLOGY PRE-PROCEDURAL EVALUATION Julien Anderson [...] No Physical Activity: Unknown (07/14/2024) Received from [facility] Exercise Vital Sign Days of Exercise per Week: Patient unable to answer Minutes of Exercise per Session: Not on file Stress: Patient Unable To Answer (07/14/2024) Received from [facility] [place] of Occupational Health - Occupational Stress Questionnaire Feeling of Stress : Patient unable to answer Social Connections: Patient Unable To Answer (07/14/2024) Received from [facility] Social Connection and Isolation Panel [NHANES] Frequency of Communication with Friends and Family: Patient unable to answer Frequency of Social Gatherings with Friends and Family: Patient unable to answer Attends Episcopal Services: Patient unable to answer Active Member [...] in detail. Questions answered. Plan discussed with MANAGER STUDY. [1] Allergies Allergen Reactions Adhesive Itching and Rash Tegaderm adhesive on Ivs, pt states its tolerable Duloxetine Other (See Comments) Became Manic documented in this encounter Plan of Treatment Upcoming Encounters Date Type Department Care Team (Late st Contact Info) Description 12/05/2024 8:01 AM EDT Hospital Encounter [facility] ENDOSCOPY [address] [place] [address] Chris Orosco MD [address] [place] [phone] 12/05/2024 8:01 AM EDT - 12/05/2024 8:31 AM EDT Surgery [facility] ENDOSCOPY [address] [place] [address] Chris Orosco MD [address] [place] [address] EGD Scheduled Procedures Name Priority Associated Diagnoses [...] 10/09/24699 - 10/10/2465810/10/24699 - 10/11/24 0659 Shift 5353-1694 7228-0394 9976-1784 24 Hour Total 4245-9514 0390-4421 1776-6617 24 Hour Total INTAKE [address]. [address] 210 [...] documented as of this encounter Care Teams Rn Military Relationship Specialty Start Date End Date Enedina Mcguire NP [address] [place] [address] PCP - General Internal Medicine 10/05/24 documented as of this encounter
--- OUTSIDE RECORDS SUMMARY | 2024-10-14 08:42 | XMS_ITS | Encounter Summary ---
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 received from mine laborer, RN. Pt placed on telemetry, serial vital signs set up. Access site: RRA. Site is soft, no bleeding/hematoma, [address] Sheath removed in mine laborer at 1402, TR band placed to [...] Bowman RN - 10/10/2024 10:54 PM EDT 0: Assumed care of patient. AxOx4. Lungs diminished [...] EDT Pt arrived with and admitted into [facility] from [facility] with AMS. Hosiptalist paged to [...] Patient will remain free of falls Goal: [place] Precautions Outcome: Progressing Problem: Daily Care Goal: Daily care needs are met Description: Assess and monitor ability to perform self care and identify potential discharge needs. Outcome: Progressing * Care Coordination - Kandy Fuentes - 10/16/2024 11:33 AM EDT [facility] Case Management/Social Work Department Progress Note Patient Information Patient Name: Julien Gilbert Hospital day: 11 Inpatient/Observation: Inpatient Level of Care: blue Admit date: 10/05/2024 Admission diagnosis: AMS PMH: has a past medical history of Alcoholic cirrhosis of liver ([facility]), Esophageal varices ([facility]), Hepatorenal syndrome ([facility]), Hypertension, Other hyperlipidemia (07/26/2024), Renal cell carcinoma ([facility]), Thrombocytopenia ([facility]), and Thyroid disease. PCP: Enedina Mcguire NP Home Pharmacy: [facility] [address] [place] [address] [facility] [address] [facility] [id number] Medical Insurance Coverage: Payor: [place] [employer] / Plan: [facility] / Product Type: *No Producttype* [...] Patient will remain free of falls Goal: [place] Fall Precautions Outcome: Progressing Problem: Daily Care [...] Patient will remain free of falls Goal: [place] Precautions Outcome: Progressing Problem: Daily Care [...] Kandy Fuentes - 10/15/2024 2:26 PM EDT [facility] Case Management/Social Work Department Progress Note [...] disease. PCP: Enedina Mcguire NP Home Pharmacy: [address] [place] [address] [address] [facility] [address] [facility] [address] Medical Insurance Coverage: Payor: [facility] / Plan: [facility] / Product Type: *No Producttype* [...] BAE RNCM * Plan of Care - Anu Wolff [...] Patient will remain free of falls Goal: [place] Precautions Outcome: Progressing Problem: Daily Care [...] Kandy Fuentes - 10/14/2024 11:10 AM EDT [facility] Case Management/Social Work Department Progress Note Patient Information Patient Name: Julien Gilbert Hospital day: 9 Inpatient/Observation: Inpatient Level of Care: blue Admit date: 10/05/2024 Admission diagnosis: AMS PMH: has a past medical history of Alcoholic cirrhosis of liver (CMS-HCC), Esophageal varices ([facility]), Hepatorenal syndrome ([facility]), Hypertension, Other hyperlipidemia (07/26/2024), Renal cell carcinoma ([facility]), Thrombocytopenia ([facility]), and Thyroid disease. PCP: Enedina Mcguire NP Home Pharmacy: [facility] [place], [facility] [place] [address] [address] [facility] [address] [facility] [address] Medical Insurance Coverage: Payor: [facility] / Plan: [facility] / Product Type: *No Producttype* [...] Kandy Fuentes - 10/13/2024 11:53 AM EDT [facility] Case Management/Social Work Department Progress Note [...] disease. PCP: Enedina Mcguire NP Home Pharmacy: [facility] [address] - [address] [place] [place] [phone] [address] [address] [facility] [address] [facility] [address] Medical Insurance Coverage: Payor: [facility] / Plan: [facility] / Product Type: *No Producttype* / Other Pertinent Information RN/CM received update from team and completed chart review. Pt is not medically ready for discharge. Patient is going to have left heart cath today. Discharge Plan Anticipated discharge plan: home Anticipated discharge date: 10/14/24 CM/SW will continue to follow and remain available for discharge planning needs. Kandy BAE [facility] * Plan of Care [...] Kandy Fuentes - 10/10/2024 12:00 PM EDT [facility] Case Management/Social Work Department Progress Note Patient Information Patient Name: Julien Gilbert Hospital day: 5 Inpatient/Observation: Inpatient Level of Care: kinsey Admit date: 10/05/2024 Admission diagnosis: AMS PMH: has a past medical history of Alcoholic cirrhosis of liver (CMS-HCC), Alcoholic hepatitis, Esophageal varices (CMS-HCC), Hepatorenal syndrome ([facility]), Hypertension, Other hyperlipidemia (07/26/2024), Renal cell carcinoma (CMS-HCC), Thrombocytopenia ([facility]), and Thyroid disease. PCP: Enedina Mcguire NP Home Pharmacy: [facility] [address] [place] [address] [address] [facility] [address] [facility] [id number] Medical Insurance Coverage: Payor: [facility] / Plan: [facility] / Product Type: *No Producttype* [...] available for discharge planning needs. Kandy BAE [facility] * Plan of Care [...] Patient will remain free of falls Goal: [place] Fall Precautions Outcome: Progressing Problem: Daily Care [...] Patient will remain free of falls Goal: [place] Fall Precautions Outcome: Progressing Problem: Daily Care [...] Kandy Fuentes - 10/09/2024 12:05 PM EDT [facility] Case Management/Social Work Department Progress Note [...] disease. PCP: Enedina Mcguire NP Home Pharmacy: [facility] [address], [facility] [place] [address] [address] [facility] [address] [facility] [address] Medical Insurance Coverage: Payor: [facility] / Plan: [facility] / Product Type: *No Producttype* [...] available for discharge planning needs. Kandy BAE [facility] * Care Coordination - Kandy Fuentes - 10/08/2024 3:41 PM EDT Health Case Management/Social Work Department Progress Note Patient Information Patient Name: Julien Gilbert Hospital day: 3 Inpatient/Observation: Inpatient Level of Care: blue Admit date: 10/05/2024 Admission diagnosis: AMS PMH: has a past medical history of Alcoholic cirrhosis of liver ([facility]), Alcoholic hepatitis, Esophageal varices ([facility]), Hepatorenal syndrome ([facility]), Hypertension, Other hyperlipidemia (07/26/2024), Renal cell carcinoma ([facility]), Thrombocytopenia ([facility]), and Thyroid disease. PCP: Enedina Mcguire NP Home Pharmacy: [facility] [place], [place] [address] [place] [address] [facility] [address] [facility] [address] Medical Insurance Coverage: Payor: [facility] / Plan: [facility] / Product Type: *No Product type* / Other Pertinent Information RN/CM received update from team and completed chart review. Pt is not medically ready for discharge. Patient needing blood transfusion today. CT scan today. Patient going through pre-transplant evaluation. Discharge Plan Anticipated discharge plan: home Anticipated discharge date: 10/10/24 CM/SW will continue to follow and remain available for discharge planning needs. Kandy BAE [facility] * Care Coordination - Kandy Fuentes - 10/07/2024 3:22 PM EDT [facility] Case Management/Social Work Department Progress Note Patient Information Patient Name: Julien Gilbert Hospital day: 2 Inpatient/Observation: Inpatient Level of Care: blue Admit date: 10/05/2024 Admission diagnosis: AMS PMH: has a past medical history of Alcoholic cirrhosis of liver (CMS-HCC), Alcoholic hepatitis, Esophageal varices ([facility]), Hepatorenal syndrome ([facility]), Hypertension, Other hyperlipidemia (07/26/2024), Renal cell carcinoma ([facility]), Thrombocytopenia ([facility]), and Thyroid disease. PCP: Enedina Mcguire NP Home Pharmacy: [facility] [address] [place] [address] [facility] [address] [facility] [id number] Medical Insurance Coverage: Payor: [facility] / Plan: [facility] / Product Type: *No Producttype* [...] available for discharge planning needs. Kandy BAE [facility] * Plan of Care [...] Patient will remain free of falls Goal: [place] Fall Precautions Outcome: Progressing Problem: Daily Care [...] 12/05/2024 8:01 AM EDT Hospital Encounter [facility] ENDOSCOPY [address] [place] [phone] Chris Orosco MD [address] [place] [phone] 12/05/2024 8:01 AM EDT - 12/05/2024 8:31 AM EDT Surgery [facility] ENDOSCOPY [address] [place] [phone] Chris Orosco MD [address] [place] [phone] EGD Scheduled Orders Name Type Priority Associated [...] with ascites, unspecified hepatic cirrhosis type ([facility]) 12/05/2024 8:01 AM EDT documented as [...] IGG ANTIBODY Routine 10/07/2024 6:37 PM EDT [id number] (AAT) QUANTITATION & MUTATION Routine 10/07/2024 6:37 [...] Routine 10/07/2024 6:19 PM EDT US DUPLEX [id number] COMPLETE Routine 10/07/2024 3:48 PM EDT US [...] 10/06/2024 4:01 AM EDT UPPER RESPIRATORY VIRAL/BACTERIAL PANEL-TELEVISION PRODUCER ONLY Routine 10/06/2024 3:12 AM EDT XR [...] mmol/L 10/17/2024 7:02 AM EDT [facility] Potassium 3.4(L) 3.5 - 5.3 mmol/L 10/17/2024 7:02 AM EDT [facility] Chloride 104 98 - 110 mmol/L 10/17/2024 7:02 AM EDT [facility] CO2 18(L) 21 - 33 mmol/L 10/17/2024 7:02 AM EDT [facility] Anion Gap 11 3 - 16 mmol/L 10/17/2024 7:02 AM EDT [facility] BUN 54(H) 7 - 25 mg/dL 10/17/2024 7:02 AM EDT [facility] Creatinine 2.88(H) 0.60 - 1.30 mg/dL 10/17/2024 7:02 AM EDT [facility] Glucose 127(H) 70 - 100 mg/dL 10/17/2024 7:02 AM EDT [facility] Calcium 8.2(L) 8.6 - 10.3 mg/dL 10/17/2024 7:02 AM EDT [facility] Phosphorus 4.5 2.1 - 4.7 mg/dL 10/17/2024 7:02 AM EDT [facility] Albumin 3.1(L) 3.5 - 5.7 g/dL 10/17/2024 7:02 AM EDT [facility] Osmolality, Calculated 292 278 - 305 mOsm/kg 10/17/2024 7:02 AM EDT [facility] EGFR 27 10/17/2024 7:02 AM EDT [facility] Comment:As of [...] ORDERABLES Final Result Performing Organization Address [facility] Co de Phone Number [facility] [address] [facility]. [address] * (ABNORMAL) Protime-INR (10/16/2024 6:31 AM EDT) Protime 22.5(H) 12.1 - 15.1 seconds 10/16/2024 8:04 AM EDT [facility] INR 1.9(H) 0.9 - 1.1 10/16/2024 8:04 AM EDT [facility] Comment: RECOMMENDED THERAPEUTIC RANGES USING INR : Stable oral anticoagulant therapy: 2.0 - 3.0 Mechanical prosthetic heart valve: 2.5 - 3.5 Recurrent acute myocardial infarction: 2.5 - 3.5 Plasma 10/16/2024 6:31 AM EDT 10/16/2024 6:56 AM EDT Eileen Schroeder MD, PhD LAB BLOOD ORDERABLES Final Result Performing Organization Address [facility]/ZIP Co de Phone Number [facility] [address] [facility] * (ABNORMAL) Hepatic Function Panel (10/16/2024 6:31 AM EDT) Total Bilirubin 7.6(H) 0.0 - 1.5 mg/dL 10/16/2024 7:24 AM EDT [facility] Bilirubin, Direct 3.97(H) 0.00 - 0.40 mg/dL 10/16/2024 7:24 AM EDT [facility] AST 45(H) 13 - 39 U/L 10/16/2024 7:24 AM EDT [facility] ALT 23 7 - 52 U/L 10/16/2024 7:24 AM EDT [facility] Alkaline Phosphatase 137(H) 36 - 125 U/L 10/16/2024 7:24 AM EDT [facility] Total Protein 5.1(L) 6.4 - 8.9 g/dL 10/16/2024 7:24 AM EDT [facility] Albumin 3.4(L) 3.5 - 5.7 g/dL 10/16/2024 7:24 AM EDT [facility] Bilirubin, Indirect 3.63(H) 0.00 - 1.10 mg/dL 10/16/2024 7:24 AM EDT [facility] Plasma 10/16/2024 6:31 AM EDT 10/16/2024 6:56 AM EDT us Eileen Schroeder MD, PhD LAB BLOOD ORDERABLES Final Result [facility] [address] [facility]. [place], [place] [address] * Magnesium (10/16/2024 6:31 AM EDT) Magnesium 2.1 1.5 - 2.5 mg/dL 10/16/2024 7:24 AM EDT [facility] Plasma 10/16/2024 6:31 AM EDT 10/16/2024 6:56 AM EDT Eileen Schroeder MD, PhD LAB BLOOD ORDERABLES Final Result [facility] [address] [facility] [place] [address], [facility] * (ABNORMAL) CBC (10/16/2024 6:31 AM EDT) WBC 5.8 3.8 - 10.8 10E3/uL 10/16/2024 8:00 AM EDT [facility] RBC 2.16(L) 4.20 - 5.80 10E6/uL 10/16/2024 8:00 AM EDT [facility] Hemoglobin 7.7(L) 13.2 - 17.1 g/dL 10/16/2024 8:00 AM EDT [facility] Hematocrit 22.1(L) 38.5 - 50.0 % 10/16/2024 8:00 AM EDT [facility] MCV 102.3(H) 80.0 - 100.0 fL 10/16/2024 8:00 AM EDT [facility] MCH 35.7(H) 27.0 - 33.0 pg 10/16/2024 8:00 AM EDT [facility] MCHC 34.9 32.0 - 36.0 g/dL 10/16/2024 8:00 AM EDT [facility] RDW 17.7(H) 11.0 - 15.0 % 10/16/2024 8:00 AM EDT [facility] Platelets 43(L) 140 - 400 10E3/uL 10/16/2024 8:00 AM EDT [facility] Comment: Specimen checked for clots. None detected. Slide Reviewed for PLT Clumps. None Seen. Platelet Estimate Decreased 10/16/2024 8:00 AM EDT [facility] MPV 8.6 7.5 - 11.5 fL 10/16/2024 8:00 AM EDT [facility] Whole Blood 10/16/2024 6:31 AM EDT 10/16/2024 6:57 AM EDT Narrative [facility] - 10/16/2024 8:00 AM EDT Peripheral blood smear was scanned per review criteria approved by the laboratory medical science liaison. Eileen Schroeder MD, PhD LAB BLOOD ORDERABLES Final Result [facility] [address] [place] [address], [facility] * (ABNORMAL) Renal Function Panel w/EGFR (10/16/2024 6:31 AM EDT) Sodium 135 133 - 146 mmol/L 10/16/2024 7:24 AM EDT [facility] Potassium 3.7 3.5 - 5.3 mmol/L 10/16/2024 7:24 AM EDT [facility] Chloride 106 98 - 110 mmol/L 10/16/2024 7:24 AM EDT [facility] CO2 16(L) 21 - 33 mmol/L 10/16/2024 7:24 AM EDT [facility] Anion Gap 13 3 - 16 mmol/L 10/16/2024 7:24 AM EDT [facility] BUN 55(H) 7 - 25 mg/dL 10/16/2024 7:24 AM EDT [facility] Creatinine 3.20(H) 0.60 - 1.30 mg/dL 10/16/2024 7:24 AM EDT [facility] Glucose 121(H) 70 - 100 mg/dL 10/16/2024 7:24 AM EDT [facility] Calcium 8.5(L) 8.6 - 10.3 mg/dL 10/16/2024 7:24 AM EDT [facility] Phosphorus 4.2 2.1 - 4.7 mg/dL 10/16/2024 7:24 AM EDT [facility] Albumin 3.4(L) 3.5 - 5.7 g/dL 10/16/2024 7:24 AM EDT [facility] Osmolality, Calculated 296 278 - 305 mOsm/kg 10/16/2024 7:24 AM EDT [facility] EGFR 24 10/16/2024 7:24 AM EDT [facility] Comment:As of 2021, the estimated [...] LAB BLOOD ORDERABLES Final Result [facility] [address] * CARISA Rhythm Strip - Scan (10/15/2024 8:02 PM EDT) us Scanning Uchhim SCAN DOCS - NO RESULTS Final Res ult * CARISA Rhythm Strip - Scan (10/15/2024 8:02 PM EDT) us Scanning [employer]him SCAN DOCS - NO RESULTS Final Res ult * Prepare Platelets, leukoreduced, 1 Units (10/15/2024 6:16 AM EDT) Product Code J6617R55 [facility] Unit Number [id number] [facility]LL Dispense Status Presumed Transfused_PT HCLL Blood Expiration Date [id number] [facility] Coding System [id number] [facility] Product us Eleazar Nguyễn MD BLOOD BANK PRODUCT ORDE LILIA Final Result [facility] * Prepare Fresh Frozen Plasma, 1 Units (10/15/2024 6:15 AM EDT) Product Code [id number] [facility] Unit Number [id number] [facility] Dispense Status Presumed Transfused_PT HCLL Blood Expiration Date [id number] [facility] Coding System [id number] [facility] Blood Bank Product us Eleazar Nguyễn MD BLOOD BANK PRODUCT ORDE LILIA Final Result [facility] * (ABNORMAL) Protime-INR (10/15/2024 6:08 AM EDT) Protime 21.6(H) 12.1 - 15.1 seconds 10/15/2024 6:36 AM EDT [facility] INR 1.8(H) 0.9 - 1.1 10/15/2024 6:36 AM EDT [facility] Comment: RECOMMENDED THERAPEUTIC RANGES USING INR : Stable oral anticoagulant therapy: 2.0 - 3.0 Mechanical prosthetic heart valve: 2.5 - 3.5 Recurrent acute myocardial infarction: 2.5 - 3.5 Plasma 10/15/2024 6:08 AM EDT 10/15/2024 6:17 AM EDT us Eileen Schroeder MD, PhD LAB BLOOD ORDERABLES Final Result Performing Organization Address City/[facility]/ZIP Co de Phone Number [facility] [address] * (ABNORMAL) Hepatic Function Panel (10/15/2024 6:08 AM EDT) Total Bilirubin 7.1(H) 0.0 - 1.5 mg/dL 10/15/2024 6:45 AM EDT [facility] Bilirubin, Direct 3.77(H) 0.00 - 0.40 mg/dL 10/15/2024 6:45 AM EDT [facility] AST 39 13 - 39 U/L 10/15/2024 6:45 AM EDT [facility] ALT 22 7 - 52 U/L 10/15/2024 6:45 AM EDT [facility] Alkaline Phosphatase 115 36 - 125 U/L 10/15/2024 6:45 AM EDT [facility] Total Protein 4.8(L) 6.4 - 8.9 g/dL 10/15/2024 6:45 AM EDT [facility] Albumin 3.2(L) 3.5 - 5.7 g/dL 10/15/2024 6:45 AM EDT [facility] Bilirubin, Indirect 3.33(H) 0.00 - 1.10 mg/dL 10/15/2024 6:45 AM EDT [facility] Plasma 10/15/2024 6:08 AM EDT 10/15/2024 6:17 AM EDT Eileen Schroeder MD, PhD LAB BLOOD ORDERABLES Final Result Performing Organization Address [facility] Co de Phone Number [facility] [address] [facility]. [address] * Magnesium (10/15/2024 6:08 AM EDT) Magnesium 1.8 1.5 - 2.5 mg/dL 10/15/2024 6:45 AM EDT [facility] Plasma 10/15/2024 6:08 AM EDT 10/15/2024 6:17 AM EDT Eileen Schroeder MD, PhD LAB BLOOD ORDERABLES Final Result Performing Organization Address [facility] Co de Phone Number [facility] [address] * (ABNORMAL) CBC (10/15/2024 6:08 AM EDT) WBC 4.6 3.8 - 10.8 10E3/uL 10/15/2024 6:51 AM EDT [facility] RBC 1.94(L) 4.20 - 5.80 10E6/uL 10/15/2024 6:51 AM EDT [facility] Hemoglobin 7.1(L) 13.2 - 17.1 g/dL 10/15/2024 6:51 AM EDT [facility] Hematocrit 19.6(L) 38.5 - 50.0 % 10/15/2024 6:51 AM EDT [facility] MCV 100.8(H) 80.0 - 100.0 fL 10/15/2024 6:51 AM EDT [facility] MCH 36.7(H) 27.0 - 33.0 pg 10/15/2024 6:51 AM EDT [facility] MCHC 36.4(H) 32.0 - 36.0 g/dL 10/15/2024 6:51 AM EDT [facility] RDW 17.3(H) 11.0 - 15.0 % 10/15/2024 6:51 AM EDT [facility] Platelets 34(L) 140 - 400 10E3/uL 10/15/2024 6:51 AM EDT [facility] Comment:Specimen checked for clots. None detected. MPV 8.7 7.5 - 11.5 fL 10/15/2024 6:51 AM EDT [facility] Whole Blood 10/15/2024 6:08 AM EDT 10/15/2024 6:17 AM EDT us Eileen Schroeder MD, PhD LAB BLOOD ORDERABLES Final Result [facility] [address] * PRA-HLA Ab Screen (Cytotoxic) (10/15/2024 6:08 AM EDT) [facility] The request and specimen(s) for this test have been received and transported to the [facility] at [address] [place] [address]. The [facility] will report results directly to the client. 10/15/2024 6:42 AM EDT [facility] Comment:The request and spec imen(s) for this test have been received and transported to the [facility] at [address] [place] [address]. The [facility] will report results directly to the client. Serum 10/15/2024 6:08 AM EDT 10/15/2024 6:42 AM EDT us Cosmo Pacheco MD LAB BLOOD ORDERABLES Final Resul t [facility] [address] [place] [address], [facility] * (ABNORMAL) Renal Function Panel w/EGFR (10/15/2024 6:08 AM EDT) Sodium 135 133 - 146 mmol/L 10/15/2024 6:45 AM EDT [facility] Potassium 3.4(L) 3.5 - 5.3 mmol/L 10/15/2024 6:45 AM EDT [facility] Chloride 107 98 - 110 mmol/L 10/15/2024 6:45 AM EDT [facility] CO2 17(L) 21 - 33 mmol/L 10/15/2024 6:45 AM EDT [facility] Anion Gap 11 3 - 16 mmol/L 10/15/2024 6:45 AM EDT [facility] BUN 55(H) 7 - 25 mg/dL 10/15/2024 6:45 AM EDT [facility] Creatinine 2.88(H) 0.60 - 1.30 mg/dL 10/15/2024 6:45 AM EDT [facility] Glucose 125(H) 70 - 100 mg/dL 10/15/2024 6:45 AM EDT [facility] Calcium 8.4(L) 8.6 - 10.3 mg/dL 10/15/2024 6:45 AM EDT [facility] Phosphorus 3.9 2.1 - 4.7 mg/dL 10/15/2024 6:45 AM EDT [facility] Albumin 3.2(L) 3.5 - 5.7 g/dL 10/15/2024 6:45 AM EDT [facility] Osmolality, Calculated 297 278 - 305 mOsm/kg 10/15/2024 6:45 AM EDT [facility] EGFR 27 10/15/2024 6:45 AM EDT [facility] Comment:As of 2021, the estimated [...] LAB BLOOD ORDERABLES Final Result [facility] [address] [place] [address]. [place] [address], [facility] * LEFT HEART CATH (10/14/2024 2:09 PM EDT) 10/14/2024 11:4 7 AM EDT Narrative [facility] - 10/14/2024 9:27 PM EDT *[facility]* Cardiac Television Cabinet Finisher [address] [place] [address] CATHETERIZATION LAB STUDY Patient: Julien Gilbert Age: [...] manner. 3. Right radial artery access. A [id number] Glidesheath - Slender - .021 sheath was [...] + + + !LV pressure s/d, ed ! 22, dP/kv=1210uq Hg/s! + + + !Aortic pressure s/d (m)!106/58 (75) ! + + + ATTESTATION: Dr. Matta was present for the entire procedure. Dr. Jay Quan was the initial author of this report. Prepared and electronically signed by Irving Matta MD [id number] Procedure Note Irving Matta MD - 10/14/2024 *[facility]* Cardiac Television Cabinet Finisher [address] [place] [address] CATHETERIZATION LAB STUDY Patient: Julien Gilbert Age: [...] manner. 3. Right radial artery access. A [id number] Glidesheath - Slender - .021sheath was advanced [...] complications. Contrast: Omnipaque 350 25ml (total dose). Cojdvgqxt190 125ml (wasted). Radiation: Fluoroscopy time: 15min. Total [...] + !LV pressure s/d, ed !112, 22, dP/im=2488lj Hg/s! + + + !Aortic pressure s/d (m)!106/58 (75) ! + + + ATTESTATION: Dr. Matta was present for the entire procedure. Dr. Jay Quan wasthe initial author of this report. Prepared and electronically signed by Irving Matta MD [id number] [place] [id number] Final Result [facility] * Transfuse Fresh Frozen [...] BLOOD ADMIN Final Result Performing Organization Address City/[facility] Co de Phone Number EXTERNAL * Antibody Screen (10/14/2024 8:21 AM EDT) Antibody Screen Negative 10/14/2024 9:11 AM EDT [facility] Blood 10/14/2024 8:21 AM EDT 10/14/2024 8:33 AM EDT Narrative [facility]ALTH [facility] - 10/14/2024 9:26 AM EDT Testing performed by [facility] Transfusion Service us Eleazar Nguyễn MD BLOOD BANK TEST ORDERAB LES Final Result Performing Organization Address [facility] Co de Phone Number [facility] [address] * ABO/Rh (10/14/2024 8:21 AM EDT) ABO Grouping O 10/14/2024 8:55 AM EDT [facility] Rh Type Positive 10/14/2024 8:55 AM EDT [facility] Blood 10/14/2024 8:21 AM EDT 10/14/2024 8:33 AM EDT us Eleazar Nguyễn MD BLOOD BANK TEST ORDERAB LES Final Result [facility] [address] * (ABNORMAL) Protime-INR (10/14/2024 2:53 AM [...] City/State/[facility] Co de Phone Number [facility] [address] * (ABNORMAL) Hepatic Function Panel (10/14/2024 2:53 AM EDT) Total Bilirubin 7.2(H) 0.0 - 1.5 mg/dL 10/14/2024 4:45 AM EDT [facility] Bilirubin, Direct 3.86(H) 0.00 - 0.40 mg/dL 10/14/2024 4:45 AM EDT [facility] AST 41(H) 13 - 39 U/L 10/14/2024 4:45 AM EDT [facility] ALT 22 7 - 52 U/L 10/14/2024 4:45 AM EDT [facility] Alkaline Phosphatase 119 36 - 125 U/L 10/14/2024 4:45 AM EDT [facility] Total Protein 4.6(L) 6.4 - 8.9 g/dL 10/14/2024 4:45 AM EDT [facility] Albumin 3.3(L) 3.5 - 5.7 g/dL 10/14/2024 4:45 AM EDT [facility] Bilirubin, Indirect 3.34(H) 0.00 - 1.10 mg/dL 10/14/2024 4:45 AM EDT [facility] Plasma 10/14/2024 2:53 AM EDT 10/14/2024 4:16 AM EDT Eileen Schroeder MD, PhD LAB BLOOD ORDERABLES Final Result Performing Organization Address City/[facility]/ZIP Co de Phone Number [facility] [address] * Magnesium (10/14/2024 2:53 AM EDT) Magnesium 1.9 1.5 - 2.5 mg/dL 10/14/2024 4:45 AM EDT [facility] Plasma 10/14/2024 2:53 AM EDT 10/14/2024 4:16 AM EDT Eileen Schroeder MD, PhD LAB BLOOD ORDERABLES Final Result Performing Organization Address [facility] Co de Phone Number [facility] [address] * (ABNORMAL) CBC (10/14/2024 2:53 AM EDT) WBC 5.5 3.8 - 10.8 10E3/uL 10/14/2024 5:00 AM EDT [facility] RBC 2.09(L) 4.20 - 5.80 10E6/uL 10/14/2024 5:00 AM EDT [facility] Hemoglobin 7.6(L) 13.2 - 17.1 g/dL 10/14/2024 5:00 AM EDT [facility] Hematocrit 21.3(L) 38.5 - 50.0 % 10/14/2024 5:00 AM EDT [facility] MCV 101.7(H) 80.0 - 100.0 fL 10/14/2024 5:00 AM EDT [facility] MCH 36.3(H) 27.0 - 33.0 pg 10/14/2024 5:00 AM EDT [facility] MCHC 35.7 32.0 - 36.0 g/dL 10/14/2024 5:00 AM EDT [facility] RDW 17.6(H) 11.0 - 15.0 % 10/14/2024 5:00 AM EDT [facility] Platelets 35(L) 140 - 400 10E3/uL 10/14/2024 5:00 AM EDT [facility] Comment: Specimen checked for clots. None detected. Slide Reviewed for PLT Clumps. None Seen. MPV 8.5 7.5 - 11.5 fL 10/14/2024 5:00 AM EDT [facility] Whole Blood 10/14/2024 2:53 AM EDT 10/14/2024 4:17 AM EDT Eileen Schroeder MD, PhD LAB BLOOD ORDERABLES Final Result [facility] [address] * (ABNORMAL) Renal Function Panel w/EGFR (10/14/2024 2:53 AM EDT) Sodium 136 133 - 146 mmol/L 10/14/2024 4:45 AM EDT [facility] Potassium 3.5 3.5 - 5.3 mmol/L 10/14/2024 4:45 AM EDT [facility] Chloride 107 98 - 110 mmol/L 10/14/2024 4:45 AM EDT [facility] CO2 16(L) 21 - 33 mmol/L 10/14/2024 4:45 AM EDT [facility] Anion Gap 13 3 - 16 mmol/L 10/14/2024 4:45 AM EDT [facility] BUN 55(H) 7 - 25 mg/dL 10/14/2024 4:45 AM EDT [facility] Creatinine 3.01(H) 0.60 - 1.30 mg/dL 10/14/2024 4:45 AM EDT [facility] Glucose 95 70 - 100 mg/dL 10/14/2024 4:45 AM EDT [facility] Calcium 8.5(L) 8.6 - 10.3 mg/dL 10/14/2024 4:45 AM EDT [facility] Phosphorus 4.4 2.1 - 4.7 mg/dL 10/14/2024 4:45 AM EDT [facility] Albumin 3.3(L) 3.5 - 5.7 g/dL 10/14/2024 4:45 AM EDT [facility] Osmolality, Calculated 297 278 - 305 mOsm/kg 10/14/2024 4:45 AM EDT [facility] EGFR 26 10/14/2024 4:45 AM EDT [facility] Comment:As of 2021, the estimated [...] LAB BLOOD ORDERABLES Final Result [facility] [address] [place] [address], [facility] * Cardiac Cath [...] mL of GADOBUTROL 1 MMOL/ML INTRAVENOUS SYRINGE ([facility]) administered intravenously COMPARISON: CT 09/03/2024. Ultrasound [...] mL of GADOBUTROL 1 MMOL/ML INTRAVENOUS SYRINGE ([facility])administered intravenously COMPARISON: CT 09/03/2024. Ultrasound 10/07/2024. [...] - 15.1 seconds 10/13/2024 6:12 AM EDT [facility] INR 2.1(H) 0.9 - 1.1 10/13/2024 6:12 AM EDT [facility] Comment: RECOMMENDED THERAPEUTIC RANGES USING INR : Stable oral anticoagulant therapy: 2.0 - 3.0 Mechanical prosthetic heart valve: 2.5 - 3.5 Recurrent acute myocardial infarction: 2.5 - 3.5 Plasma 10/13/2024 5:35 AM EDT 10/13/2024 5:52 AM EDT Eileen Schroeder MD, PhD LAB BLOOD ORDERABLES Final Result [facility] [address] [place], [place] [address] * (ABNORMAL) Hepatic Function Panel (10/13/2024 5:35 AM EDT) Total Bilirubin 6.5(H) 0.0 - 1.5 mg/dL 10/13/2024 6:30 AM EDT [facility] Bilirubin, Direct 3.53(H) 0.00 - 0.40 mg/dL 10/13/2024 6:30 AM EDT [facility] AST 42(H) 13 - 39 U/L 10/13/2024 6:30 AM EDT [facility] ALT 19 7 - 52 U/L 10/13/2024 6:30 AM EDT [facility] Alkaline Phosphatase 108 36 - 125 U/L 10/13/2024 6:30 AM EDT [facility] Total Protein 4.4(L) 6.4 - 8.9 g/dL 10/13/2024 6:30 AM EDT [facility] Albumin 3.1(L) 3.5 - 5.7 g/dL 10/13/2024 6:30 AM EDT [facility] Bilirubin, Indirect 2.97(H) 0.00 - 1.10 mg/dL 10/13/2024 6:30 AM EDT [facility] Plasma 10/13/2024 5:35 AM EDT 10/13/2024 5:52 AM EDT Eileen Schroeder MD, PhD LAB BLOOD ORDERABLES Final Result Performing Organization Address [facility]/ZIP Co de Phone Number [facility] [address] * Magnesium (10/13/2024 5:35 AM EDT) Magnesium 2.0 1.5 - 2.5 mg/dL 10/13/2024 6:30 AM EDT [facility] Plasma 10/13/2024 5:35 AM EDT 10/13/2024 5:52 AM EDT Eileen Schroeder MD, PhD LAB BLOOD ORDERABLES Final Result [facility] [address] [place] [address] * (ABNORMAL) CBC (10/13/2024 5:35 AM EDT) WBC 4.7 3.8 - 10.8 10E3/uL 10/13/2024 6:22 AM EDT [facility] RBC 2.06(L) 4.20 - 5.80 10E6/uL 10/13/2024 6:22 AM EDT [facility] Hemoglobin 7.4(L) 13.2 - 17.1 g/dL 10/13/2024 6:22 AM EDT [facility] Hematocrit 21.7(L) 38.5 - 50.0 % 10/13/2024 6:22 AM EDT [facility] MCV 105.4(H) 80.0 - 100.0 fL 10/13/2024 6:22 AM EDT [facility] MCH 35.9(H) 27.0 - 33.0 pg 10/13/2024 6:22 AM EDT [facility] MCHC 34.0 32.0 - 36.0 g/dL 10/13/2024 6:22 AM EDT [facility] RDW 18.5(H) 11.0 - 15.0 % 10/13/2024 6:22 AM EDT [facility] Platelets 35(L) 140 - 400 10E3/uL 10/13/2024 6:22 AM EDT [facility] Comment: CNV Specimen checked for clots. None detected. MPV 8.4 7.5 - 11.5 fL 10/13/2024 6:22 AM EDT [facility] Whole Blood 10/13/2024 5:35 AM EDT 10/13/2024 5:53 AM EDT us Eileen Schroeder MD, PhD LAB BLOOD ORDERABLES Final Result [facility] [address] [place] [address], [facility] * (ABNORMAL) Ammonia (10/13/2024 5:35 AM EDT) Ammonia 203(HH) 27 - 90 ug/dL 10/13/2024 7:16 AM EDT [facility] Comment: HEMOLYSIS EVIDENT. RESULTS MAY BE INFLUENCED. Critical Result [id number] Called to and read back by: KEY MELO RN at: 10/13/2024 07:15:55 by:NISREEN Plasma 10/13/2024 5:35 AM EDT 10/13/2024 6:19 AM EDT us Ellis Mays DO LAB BLOOD ORDERABLES Final Resul t [facility] [address] [place] [address], [facility] * (ABNORMAL) Renal Function Panel w/EGFR (10/13/2024 5:35 AM EDT) Sodium 134 133 - 146 mmol/L 10/13/2024 6:30 AM EDT [facility] Potassium 3.7 3.5 - 5.3 mmol/L 10/13/2024 6:30 AM EDT [facility] Chloride 109 98 - 110 mmol/L 10/13/2024 6:30 AM EDT [facility] CO2 14(L) 21 - 33 mmol/L 10/13/2024 6:30 AM EDT [facility] Anion Gap 11 3 - 16 mmol/L 10/13/2024 6:30 AM EDT [facility] BUN 54(H) 7 - 25 mg/dL 10/13/2024 6:30 AM EDT [facility] Creatinine 2.99(H) 0.60 - 1.30 mg/dL 10/13/2024 6:30 AM EDT [facility] Glucose 116(H) 70 - 100 mg/dL 10/13/2024 6:30 AM EDT [facility] Calcium 8.3(L) 8.6 - 10.3 mg/dL 10/13/2024 6:30 AM EDT [facility] Phosphorus 4.5 2.1 - 4.7 mg/dL 10/13/2024 6:30 AM EDT [facility] Albumin 3.1(L) 3.5 - 5.7 g/dL 10/13/2024 6:30 AM EDT [facility] Osmolality, Calculated 294 278 - 305 mOsm/kg 10/13/2024 6:30 AM EDT [facility] EGFR 26 10/13/2024 6:30 AM EDT [facility] Comment:As of 2021, the estimated [...] BLOOD ORDERABLES Final Result Performing Organization Address City/[facility]/ZIP Co de Phone Number [facility] [address] [facility] * CARISA Rhythm Strip - Scan [...] ORDERABLES Final Result Performing Organization Address [facility]/ZIP Co de Phone Number [facility] [address] [facility] * (ABNORMAL) Hepatic Function Panel (10/12/2024 5:44 AM EDT) Total Bilirubin 6.5(H) 0.0 - 1.5 mg/dL 10/12/2024 6:29 AM EDT [facility] Bilirubin, Direct 3.64(H) 0.00 - 0.40 mg/dL 10/12/2024 6:29 AM EDT [facility] AST 40(H) 13 - 39 U/L 10/12/2024 6:29 AM EDT [facility] ALT 19 7 - 52 U/L 10/12/2024 6:29 AM EDT [facility] Alkaline Phosphatase 99 36 - 125 U/L 10/12/2024 6:29 AM EDT [facility] Total Protein 4.2(L) 6.4 - 8.9 g/dL 10/12/2024 6:29 AM EDT [facility] Albumin 3.1(L) 3.5 - 5.7 g/dL 10/12/2024 6:29 AM EDT [facility] Bilirubin, Indirect 2.86(H) 0.00 - 1.10 mg/dL 10/12/2024 6:29 AM EDT [facility] Plasma 10/12/2024 5:44 AM EDT 10/12/2024 5:58 AM EDT Eileen Schroeder MD, PhD LAB BLOOD ORDERABLES Final Result [facility] [address] [facility] * Magnesium (10/12/2024 5:44 AM EDT) Magnesium 1.9 1.5 - 2.5 mg/dL 10/12/2024 6:29 AM EDT [facility] Plasma 10/12/2024 5:44 AM EDT 10/12/2024 5:58 AM EDT Eileen Schroeder MD, PhD LAB BLOOD ORDERABLES Final Result [facility] [address] [place] [address], [facility] * (ABNORMAL) CBC (10/12/2024 5:44 AM EDT) WBC 3.3(L) 3.8 - 10.8 10E3/uL 10/12/2024 7:06 AM EDT [facility] RBC 1.95(L) 4.20 - 5.80 10E6/uL 10/12/2024 7:06 AM EDT [facility] Hemoglobin 7.2(L) 13.2 - 17.1 g/dL 10/12/2024 7:06 AM EDT [facility] Hematocrit 19.7(L) 38.5 - 50.0 % 10/12/2024 7:06 AM EDT [facility] MCV 101.2(H) 80.0 - 100.0 fL 10/12/2024 7:06 AM EDT [facility] MCH 37.0(H) 27.0 - 33.0 pg 10/12/2024 7:06 AM EDT [facility] MCHC 36.5(H) 32.0 - 36.0 g/dL 10/12/2024 7:06 AM EDT [facility] RDW 17.6(H) 11.0 - 15.0 % 10/12/2024 7:06 AM EDT [facility] Platelets 30(L) 140 - 400 10E3/uL 10/12/2024 7:06 AM EDT [facility] Comment: Specimen checked for clots. None detected. Slide Reviewed for PLT Clumps. None Seen. Platelet Estimate Decreased 10/12/2024 7:06 AM EDT [facility] MPV 8.3 7.5 - 11.5 fL 10/12/2024 7:06 AM EDT [facility] Whole Blood 10/12/2024 5:44 AM EDT 10/12/2024 5:58 AM EDT Narrative [facility] - 10/12/2024 7:06 AM EDT Peripheral blood smear was scanned per review criteria approved by the laboratory medical science liaison. us Eileen Schroeder MD, PhD LAB BLOOD ORDERABLES Final Result [facility] [address] [place] [address], [facility] * (ABNORMAL) Renal Function Panel w/EGFR (10/12/2024 5:44 AM EDT) Sodium 135 133 - 146 mmol/L 10/12/2024 6:29 AM EDT [facility] Potassium 3.7 3.5 - 5.3 mmol/L 10/12/2024 6:29 AM EDT [facility] Chloride 109 98 - 110 mmol/L 10/12/2024 6:29 AM EDT [facility] CO2 17(L) 21 - 33 mmol/L 10/12/2024 6:29 AM EDT [facility] Anion Gap 9 3 - 16 mmol/L 10/12/2024 6:29 AM EDT [facility] BUN 52(H) 7 - 25 mg/dL 10/12/2024 6:29 AM EDT [facility] Creatinine 2.94(H) 0.60 - 1.30 mg/dL 10/12/2024 6:29 AM EDT [facility] Glucose 121(H) 70 - 100 mg/dL 10/12/2024 6:29 AM EDT [facility] Calcium 8.5(L) 8.6 - 10.3 mg/dL 10/12/2024 6:29 AM EDT [facility] Phosphorus 4.6 2.1 - 4.7 mg/dL 10/12/2024 6:29 AM EDT [facility] Albumin 3.1(L) 3.5 - 5.7 g/dL 10/12/2024 6:29 AM EDT [facility] Osmolality, Calculated 295 278 - 305 mOsm/kg 10/12/2024 6:29 AM EDT [facility] EGFR 27 10/12/2024 6:29 AM EDT [facility] Comment:As of 2021, the estimated [...] C, Talia M, Olivia [place], Emerita [place], [place]lyn [place], Felicia [place], et al. A Unifying Approach for GFR Estimation: Recommendations of the NKF-ASN Task Force on Reassessing the inclusion of Race in Diagnosing Kidney Disease. Am J Kidney Dis. 2020. Plasma 10/12/2024 5:44 AM EDT 10/12/2024 5:58 AM EDT us Eileen Schroeder MD, PhD LAB BLOOD ORDERABLES Final Result Performing Organization Address City/[facility]/ZIP Co de Phone Number [facility] [address] [facility] * [place]ISA Rhythm Strip - Scan (10/11/2024 10:04 PM EDT) us Scanning [employer] SCAN DOCS - NO RESULTS Final Res ult * (ABNORMAL) Protime-INR (10/11/2024 3:02 AM EDT) Protime 26.8(H) 12.1 - 15.1 seconds 10/11/2024 3:30 AM EDT [facility] INR 2.4(H) 0.9 - 1.1 10/11/2024 3:30 AM EDT [facility]ALTH LAB Comment: RECOMMENDED THERAPEUTIC RANGES USING INR : Stable oral anticoagulant therapy: 2.0 - 3.0 Mechanical prosthetic heart valve: 2.5 - 3.5 Recurrent acute myocardial infarction: 2.5 - 3.5 Plasma 10/11/2024 3:02 AM EDT 10/11/2024 3:08 AM EDT us Eileen Schroeder MD, PhD LAB BLOOD ORDERABLES Final Result [facility] [address] * (ABNORMAL) Hepatic Function Panel (10/11/2024 3:02 AM EDT) Total Bilirubin 7.3(H) 0.0 - 1.5 mg/dL 10/11/2024 3:38 AM EDT [facility] Bilirubin, Direct 3.85(H) 0.00 - 0.40 mg/dL 10/11/2024 3:38 AM EDT [facility] AST 39 13 - 39 U/L 10/11/2024 3:38 AM EDT [facility] ALT 20 7 - 52 U/L 10/11/2024 3:38 AM EDT [facility] Alkaline Phosphatase 88 36 - 125 U/L 10/11/2024 3:38 AM EDT [facility] Total Protein 4.5(L) 6.4 - 8.9 g/dL 10/11/2024 3:38 AM EDT [facility] Albumin 3.3(L) 3.5 - 5.7 g/dL 10/11/2024 3:38 AM EDT [facility] Bilirubin, Indirect 3.45(H) 0.00 - 1.10 mg/dL 10/11/2024 3:38 AM EDT [facility] Plasma 10/11/2024 3:02 AM EDT 10/11/2024 3:08 AM EDT Eileen Schroeder MD, PhD LAB BLOOD ORDERABLES Final Result Performing Organization Address [facility] Co de Phone Number [facility] [address] * Magnesium (10/11/2024 3:02 AM EDT) Pathologist [facility] Magnesium 2.0 1.5 - 2.5 mg/dL 10/11/2024 3:38 AM EDT [facility] Plasma 10/11/2024 3:02 AM EDT 10/11/2024 3:08 AM EDT Eileen Schroeder MD, PhD LAB BLOOD ORDERABLES Final Result [facility] [address] * (ABNORMAL) CBC (10/11/2024 3:02 AM EDT) WBC 4.0 3.8 - 10.8 10E3/uL 10/11/2024 3:55 AM EDT [facility] RBC 2.11(L) 4.20 - 5.80 10E6/uL 10/11/2024 3:55 AM EDT [facility] Hemoglobin 7.7(L) 13.2 - 17.1 g/dL 10/11/2024 3:55 AM EDT [facility] Hematocrit 21.2(L) 38.5 - 50.0 % 10/11/2024 3:55 AM EDT [facility] MCV 100.5(H) 80.0 - 100.0 fL 10/11/2024 3:55 AM EDT [facility] MCH 36.4(H) 27.0 - 33.0 pg 10/11/2024 3:55 AM EDT [facility] MCHC 36.2(H) 32.0 - 36.0 g/dL 10/11/2024 3:55 AM EDT [facility] RDW 17.9(H) 11.0 - 15.0 % 10/11/2024 3:55 AM EDT [facility] Platelets 32(L) 140 - 400 10E3/uL 10/11/2024 3:55 AM EDT [facility] Comment: Specimen checked for clots. None detected. Slide Reviewed for PLT Clumps. None Seen. Platelet Estimate Decreased 10/11/2024 3:55 AM EDT [facility] MPV 8.1 7.5 - 11.5 fL 10/11/2024 3:55 AM EDT [facility] Whole Blood 10/11/2024 3:02 AM EDT 10/11/2024 3:08 AM EDT Narrative [facility] - 10/11/2024 3:55 AM EDT Peripheral blood smear was scanned per review criteria approved by the laboratory medical science liaison. us Eileen Schroeder MD, PhD LAB BLOOD ORDERABLES Final Result [facility] [address] * Vancomycin, random (10/11/2024 3:02 AM EDT) Vancomycin Random 13.4 ug/mL 10/11/2024 3:37 AM EDT [facility] Comment:Reference range not established for this test. Plasma 10/11/2024 3:02 AM EDT 10/11/2024 3:08 AM EDT Jodi Ortiz PharmD LAB BLOOD ORDERABLES Final Result [facility] [address] [facility]. [address] * (ABNORMAL) Renal Function Panel w/EGFR (10/11/2024 3:02 AM EDT) Sodium 134 133 - 146 mmol/L 10/11/2024 3:38 AM EDT [facility] Potassium 3.6 3.5 - 5.3 mmol/L 10/11/2024 3:38 AM EDT [facility] Chloride 108 98 - 110 mmol/L 10/11/2024 3:38 AM EDT [facility] CO2 16(L) 21 - 33 mmol/L 10/11/2024 3:38 AM EDT [facility] Anion Gap 10 3 - 16 mmol/L 10/11/2024 3:38 AM EDT [facility] BUN 49(H) 7 - 25 mg/dL 10/11/2024 3:38 AM EDT [facility] Creatinine 2.77(H) 0.60 - 1.30 mg/dL 10/11/2024 3:38 AM EDT [facility] Glucose 112(H) 70 - 100 mg/dL 10/11/2024 3:38 AM EDT [facility] Calcium 8.9 8.6 - 10.3 mg/dL 10/11/2024 3:38 AM EDT [facility] Phosphorus 3.5 2.1 - 4.7 mg/dL 10/11/2024 3:38 AM EDT [facility] Albumin 3.3(L) 3.5 - 5.7 g/dL 10/11/2024 3:38 AM EDT [facility] Osmolality, Calculated 292 278 - 305 mOsm/kg 10/11/2024 3:38 AM EDT [facility] EGFR 29 10/11/2024 3:38 AM EDT [facility] Comment:As of 2021, the estimated [...] LAB BLOOD ORDERABLES Final Result [facility] [address] [place] [address], [facility] * IR Paracentesis incl imaging [...] diagnostic and therapeutic paracentesis. Bakari Wahl CNP, Competitive [employer]pper Procedure and Findings: The procedure was performed [...] Using ultrasound guidance, a 10 cm, 5-F [employer] Centesis catheter was placed into the right [...] for diagnostic andtherapeutic paracentesis. Bakari Wahl CNP, [employer]pper Procedure and Findings: The procedure was performed [...] Using ultrasound guidance, a 10 cm, 5-F [employer] Centesis catheter was placedinto the right lower [...] Clear 10/10/2024 5:29 PM EDT [facility] Neutrophil %, Fluid 9 % 10/10/2024 5:29 PM EDT [facility] Lymphocytes %, Fluid 13 % 10/10/2024 5:29 PM EDT [facility] Mesothelial %, Fluid 6 % 10/10/2024 5:29 PM EDT [facility] Macrophage %, Fluid 72 % 10/10/2024 5:29 PM EDT [facility] RBC, Fluid 2,662 /uL 10/10/2024 4:41 PM EDT [facility] Total Nucleated Cells, Fluid 89 /uL 10/10/2024 4:41 PM EDT [facility] Comment:Total Nucleated Cell s represent WBCs and other nucleated cells in the fluid such as lining cells. Ascitic Fluid ABDOMEN / Unknown 1:51 PM EDT 10/10/2024 3:56 PM EDT Gerri Peterson MD BODY FLUIDS AND STOOLS ORDERABL ES Final Result Performing Organization Address [facility] Co de Phone Number [facility] [address] * Body Fluid Culture plus Stain (10/10/2024 1:51 PM EDT) Gram Stain Result Cytospin Results: [facility] Gram Stain Result Polymorphonuclear Leukocytes Seen; [facility] Gram Stain Result No Organisms Seen; [facility] Culture Result No Growth After 5 Days [facility] Fluid ABDOMEN / Unknown 10/10/2024 1:51 PM EDT 10/10/2024 3:56 PM EDT Gerri Peterson MD MICROBIOLOGY - GENERAL ORDERABL ES Final Result Performing Organization Address [facility] de Phone Number [facility] [address] * UPPER GI ENDOSCOPY (10/10/2024 11:48 AM EDT) 10/10/2024 11:4 8 AM EDT Narrative [facility] - 10/10/2024 12:34 PM EDT [id number] Procedure Date: 10/10/2024 11:48 AM Patient Name: Julien Gilbert Date of : 1985 Admit Type: Inpatient Age: 39 Gender: Male Note Status: Finalized Attending MD: Lino Soto MD, [id number] Procedure: Upper GI endoscopy Indications: Gastroesopahgeal variceal [...] verified by the physician, the nurse, the sanitary napkin machine tender and the communication technician in the pre-procedure area in the [...] to hypotension Procedure Code(s): --- Professional --- 26121, GC, Esophagogastroduodenoscopy, flexible, transoral; diagnostic, including collection of specimen(s) by brushing or washing, when performed (separate procedure) Diagnosis Code(s): --- Professional --- I85.00, Esophageal varices without bleeding K76.6, Portal hypertension K31.89, Other diseases of stomach and duodenum CPT copyright 2022 [employer]. All rights reserved. The codes documented in this report are preliminary and upon property technician review may be revised to meet [...] In: 12:10:16 PM Scope Out: 12:17:[address] [place] [address], [facility] us Provider Not In System PROCEDURE/MINOR SURGICAL ORDERABLES Final Result Performing Organization Address [facility] Co de Phone Number [facility] * (ABNORMAL) Protime-INR (10/10/2024 5:23 AM EDT) Protime 23.9(H) 12.1 - 15.1 seconds 10/10/2024 6:11 AM EDT [facility] INR 2.1(H) 0.9 - 1.1 10/10/2024 6:11 AM EDT [facility] Comment: RECOMMENDED THERAPEUTIC RANGES USING INR : Stable oral anticoagulant therapy: 2.0 - 3.0 Mechanical prosthetic heart valve: 2.5 - 3.5 Recurrent acute myocardial infarction: 2.5 - 3.5 Plasma 10/10/2024 5:23 AM EDT 10/10/2024 5:50 AM EDT Eileen Schroeder MD, PhD LAB BLOOD ORDERABLES Final Result Performing Organization Address [facility] de Phone Number [facility] [address] [place] [address] * (ABNORMAL) Hepatic Function Panel (10/10/2024 5:23 AM EDT) Total Bilirubin 8.6(H) 0.0 - 1.5 mg/dL 10/10/2024 6:21 AM EDT [facility] Bilirubin, Direct 4.65(H) 0.00 - 0.40 mg/dL 10/10/2024 6:21 AM EDT [facility] AST 40(H) 13 - 39 U/L 10/10/2024 6:21 AM EDT [facility] ALT 22 7 - 52 U/L 10/10/2024 6:21 AM EDT [facility] Alkaline Phosphatase 118 36 - 125 U/L 10/10/2024 6:21 AM EDT [facility] Total Protein 4.6(L) 6.4 - 8.9 g/dL 10/10/2024 6:21 AM EDT [facility] Albumin 3.3(L) 3.5 - 5.7 g/dL 10/10/2024 6:21 AM EDT [facility] Bilirubin, Indirect 3.95(H) 0.00 - 1.10 mg/dL 10/10/2024 6:21 AM EDT [facility] Plasma 10/10/2024 5:23 AM EDT 10/10/2024 5:50 AM EDT Eileen Schroeder MD, PhD LAB BLOOD ORDERABLES Final Result Performing Organization Address [facility]/ZIP Co de Phone Number [facility] [address] * Magnesium (10/10/2024 5:23 AM EDT) Magnesium 1.9 1.5 - 2.5 mg/dL 10/10/2024 6:21 AM EDT [facility] Plasma 10/10/2024 5:23 AM EDT 10/10/2024 5:50 AM EDT Eileen Schroeder MD, PhD LAB BLOOD ORDERABLES Final Result Performing Organization Address [facility] de Phone Number [facility] [address] * (ABNORMAL) CBC (10/10/2024 5:23 AM EDT) WBC 5.1 3.8 - 10.8 10E3/uL 10/10/2024 6:14 AM EDT [facility] RBC 2.04(L) 4.20 - 5.80 10E6/uL 10/10/2024 6:14 AM EDT [facility] Hemoglobin 7.3(L) 13.2 - 17.1 g/dL 10/10/2024 6:14 AM EDT [facility] Hematocrit 20.6(L) 38.5 - 50.0 % 10/10/2024 6:14 AM EDT [facility] MCV 101.2(H) 80.0 - 100.0 fL 10/10/2024 6:14 AM EDT [facility] MCH 36.0(H) 27.0 - 33.0 pg 10/10/2024 6:14 AM EDT [facility] MCHC 35.5 32.0 - 36.0 g/dL 10/10/2024 6:14 AM EDT [facility] RDW 17.6(H) 11.0 - 15.0 % 10/10/2024 6:14 AM EDT [facility] Platelets 39(L) 140 - 400 10E3/uL 10/10/2024 6:14 AM EDT [facility] Comment: CNV Specimen checked for clots. None detected. MPV 9.8 7.5 - 11.5 fL 10/10/2024 6:14 AM EDT [facility] Whole Blood 10/10/2024 5:23 AM EDT 10/10/2024 5:51 AM EDT us Eileen Schroeder MD, PhD LAB BLOOD ORDERABLES Final Result [facility] [address] * Vancomycin, random (10/10/2024 5:23 AM EDT) Vancomycin Random 16.4 ug/mL 10/10/2024 6:22 AM EDT [facility] Comment:Reference range not established for this test. Plasma 10/10/2024 5:23 AM EDT 10/10/2024 5:51 AM EDT us Jodi FreireD LAB BLOOD ORDERABLES Final Result [facility] [address] * (ABNORMAL) Renal Function Panel w/EGFR (10/10/2024 5:23 AM EDT) Sodium 135 133 - 146 mmol/L 10/10/2024 6:21 AM EDT [facility] Potassium 3.6 3.5 - 5.3 mmol/L 10/10/2024 6:21 AM EDT [facility] Chloride 108 98 - 110 mmol/L 10/10/2024 6:21 AM EDT [facility] CO2 17(L) 21 - 33 mmol/L 10/10/2024 6:21 AM EDT [facility] Anion Gap 10 3 - 16 mmol/L 10/10/2024 6:21 AM EDT [facility] BUN 53(H) 7 - 25 mg/dL 10/10/2024 6:21 AM EDT [facility] Creatinine 2.85(H) 0.60 - 1.30 mg/dL 10/10/2024 6:21 AM EDT [facility] Glucose 113(H) 70 - 100 mg/dL 10/10/2024 6:21 AM EDT [facility] Calcium 9.0 8.6 - 10.3 mg/dL 10/10/2024 6:21 AM EDT [facility] Phosphorus 3.3 2.1 - 4.7 mg/dL 10/10/2024 6:21 AM EDT [facility] Albumin 3.3(L) 3.5 - 5.7 g/dL 10/10/2024 6:21 AM EDT [facility] Osmolality, Calculated 295 278 - 305 mOsm/kg 10/10/2024 6:21 AM EDT [facility] EGFR 28 10/10/2024 6:21 AM T [facility] Comment:As of 2021, the estimated [...] LAB BLOOD ORDERABLES Final Result [facility] [address] [place] [address], [facility] * ECHO STRESS W/ CONTRAST (10/09/2024 4:37 PM EDT) Anatomical Region Laterality Modality Chest Ultrasound 10/09/2024 2:40 PM EDT Narrative 10/09/2024 6:45 PM EDT * [facility]* [facility] [place] [address] Stress Echocardiogram Patient: Julien Gilbert Room: 8142 Height: 76in MR Number: [id number] : 1985 Weight: 262lb Account: [id number] Gender: M BP: 125 / 77 Study Date: 10/09/2024 Age: 39 BSA: 2.48m^2 Referring physician: Gerri Peterson Interpreting physician: Tonya Henriquez MD FELLOW Lisa Jha MD PERFORMING Tonya Henriquez MD MEAT BONER [employer] ORDERING Gerri Peterson REFERRING Gerri [...] was augmented by the addition of hand zinc plating machine operator and leg lifts. The infusion was [...] at baseline or with provocation, shows no dhntn-px-lzke atrial level shunt. - Pulmonary arteries: Systolic [...] at baseline or with provocation, shows no ufcfr-xe-bzmc atrial level shunt. Pulmonary artery: - Systolic [...] at baseline or with provocation, shows no iiuyt-xw-nxdn atrial level shunt. Pericardium: - There is [...] peak heart rate and blood pressure was 57176lt Hg/min. Stress testing did not produce any [...] Reviewed and confirmed by Tonya Henriquez MD [id number] Procedure Note Tonya Henriquez MD - 10/09/2024 * [facility]* [address] [place] [id number] Stress Echocardiogram Patient: Julien Gilbert Room: 8142 Height: 76in MR Number: [id number] : 1985 Weight: 262lb Account: [id number] Gender: M BP: 125 / 77 Study Date: 10/09/2024 Age: 39 BSA: 2.48m^2 Referring physician: Gerri Peterson Interpreting physician: Tonya Henriquez MD FELLOW Lisa Jha MD PERFORMING Tonya Henriquez MD MEAT B[employer] ORDERING Gerri Peterson REFERRING Gerri Peterson ATTENDING Fouzia Rene ADMITTING Angie Blanchard Procedure:STRESS ECHO - PHARMACOLOGIC Order: Indications: Pre-Operative Clearance (Z01.818). PMH: EtOH Use Disorder. Risk factors: Hypertension. Dyslipidemia. Study data: Height: 76in. 193cm. Weight: 262lb. 118.8kg. The previousstudy was not available, so comparison was made to the report of 07/15/2024. Study status: Routine. Procedure: The patient arrived at [facility]. A baseline ECG was recorded. [...] was augmented by the addition of hand zinc plating machine operator and leg lifts. The infusion was [...] at baseline or with provocation, shows no ieeqk-vg-lknp atrial level shunt. - Pulmonary arteries: Systolic [...] study at baseline or with provocation, showsno uincv-qq-prig atrial level shunt. Pulmonary artery: - Systolic [...] at baseline or with provocation, shows no sattg-st-fsdv atrial level shunt. Pericardium: - There is [...] heart rate). The maximal predicted heart rate [id number]. The target heart rate was 152bpm. The target heart rate was achieved.The heart rate response to stress is normal. There is a normal resting blood pressure with an appropriate response to stress. The rate-pressureproduct for the peak heart rate and blood pressure was 14788sl Hg/min. Stress testing did not produce any [...] Reviewed and confirmed by Tonya Henriquez MD [id number] Gerri Peterson MD CV ECHO ORDERABLES Final Result * (ABNORMAL) Renal Function Panel w/EGFR, STAT (10/09/2024 1:05 PM EDT) Sodium 134 133 - 146 mmol/L 10/09/2024 2:10 PM EDT [facility] Potassium 3.7 3.5 - 5.3 mmol/L 10/09/2024 2:10 PM EDT [facility] Chloride 105 98 - 110 mmol/L 10/09/2024 2:10 PM EDT [facility] CO2 17(L) 21 - 33 mmol/L 10/09/2024 2:10 PM EDT [facility] Anion Gap 12 3 - 16 mmol/L 10/09/2024 2:10 PM EDT [facility] BUN 53(H) 7 - 25 mg/dL 10/09/2024 2:10 PM EDT [facility] Creatinine 2.89(H) 0.60 - 1.30 mg/dL 10/09/2024 2:10 PM EDT [facility] Glucose 108(H) 70 - 100 mg/dL 10/09/2024 2:10 PM EDT [facility] Calcium 9.3 8.6 - 10.3 mg/dL 10/09/2024 2:10 PM EDT [facility] Phosphorus 3.4 2.1 - 4.7 mg/dL 10/09/2024 2:10 PM EDT [facility] Albumin 3.6 3.5 - 5.7 g/dL 10/09/2024 2:10 PM EDT [facility] Osmolality, Calculated 293 278 - 305 mOsm/kg 10/09/2024 2:10 PM EDT [facility] EGFR 27 10/09/2024 2:10 PM EDT [facility] Comment:As of 2021, the estimated [...] LAB BLOOD ORDERABLES Final Result [facility] [address] [id number] * (ABNORMAL) Renal Function Panel w/EGFR, STAT (10/09/2024 8:14 AM EDT) Sodium 134 133 - 146 mmol/L 10/09/2024 8:47 AM EDT [facility] Potassium 3.4(L) 3.5 - 5.3 mmol/L 10/09/2024 8:47 AM EDT [facility] Chloride 107 98 - 110 mmol/L 10/09/2024 8:47 AM EDT [facility] CO2 17(L) 21 - 33 mmol/L 10/09/2024 8:47 AM EDT [facility] Anion Gap 10 3 - 16 mmol/L 10/09/2024 8:47 AM EDT [facility] BUN 54(H) 7 - 25 mg/dL 10/09/2024 8:47 AM EDT [facility] Creatinine 3.04(H) 0.60 - 1.30 mg/dL 10/09/2024 8:47 AM EDT [facility] Glucose 124(H) 70 - 100 mg/dL 10/09/2024 8:47 AM EDT [facility] Calcium 9.0 8.6 - 10.3 mg/dL 10/09/2024 8:47 AM EDT [facility] Phosphorus 3.5 2.1 - 4.7 mg/dL 10/09/2024 8:47 AM EDT [facility] Albumin 3.4(L) 3.5 - 5.7 g/dL 10/09/2024 8:47 AM EDT [facility] Osmolality, Calculated 294 278 - 305 mOsm/kg 10/09/2024 8:47 AM EDT [facility] EGFR 26 10/09/2024 8:47 AM EDT [facility] Comment:As of 2021, the estimated [...] BLOOD ORDERABLES Final Resu lt [facility] [address] [facility] * Prepare RBC, leukoreduced, 1 Units (10/09/2024 6:16 AM EDT) Product Code S8469H45 [facility] Unit Number [id number] [facility] Dispense Status Presumed Transfused_PT [facility] Blood Expiration Date [facility] Coding System [id number] [facility] Blood Bank Product Eileen Schroeder MD, PhD BLOOD BANK PRODUCT OR DERABLES Final Result [facility] * (ABNORMAL) Protime-INR (10/09/2024 4:59 AM EDT) Pathologist [facility] Protime 26.5(H) 12.1 - 15.1 seconds 10/09/2024 6:30 AM EDT [facility] INR 2.4(H) 0.9 - 1.1 10/09/2024 6:30 AM EDT [facility] Comment: RECOMMENDED THERAPEUTIC RANGES USING INR : Stable oral anticoagulant therapy: 2.0 - 3.0 Mechanical prosthetic heart valve: 2.5 - 3.5 Recurrent acute myocardial infarction: 2.5 - 3.5 Plasma 10/09/2024 4:59 AM EDT 10/09/2024 5:55 AM EDT Eileen Schroeder MD, PhD LAB BLOOD ORDERABLES Final Result [facility] [address] [facility] * (ABNORMAL) Hepatic Function Panel (10/09/2024 4:59 AM EDT) Total Bilirubin 9.0(H) 0.0 - 1.5 mg/dL 10/09/2024 6:42 AM EDT [facility] Bilirubin, Direct 4.60(H) 0.00 - 0.40 mg/dL 10/09/2024 6:42 AM EDT [facility] AST 38 13 - 39 U/L 10/09/2024 6:42 AM EDT [facility] ALT 18 7 - 52 U/L 10/09/2024 6:42 AM EDT [facility] Alkaline Phosphatase 122 36 - 125 U/L 10/09/2024 6:42 AM EDT [facility] Total Protein 4.8(L) 6.4 - 8.9 g/dL 10/09/2024 6:42 AM EDT [facility] Albumin 3.4(L) 3.5 - 5.7 g/dL 10/09/2024 6:42 AM EDT [facility] Bilirubin, Indirect 4.40(H) 0.00 - 1.10 mg/dL 10/09/2024 6:42 AM EDT [facility] Plasma 10/09/2024 4:59 AM EDT 10/09/2024 5:57 AM EDT Eileen Schroeder MD, PhD LAB BLOOD ORDERABLES Final Result Performing Organization Address City/[facility]/ZIP Co de Phone Number [facility] [address] * Magnesium (10/09/2024 4:59 AM EDT) Magnesium 1.8 1.5 - 2.5 mg/dL 10/09/2024 6:42 AM EDT [facility] Plasma 10/09/2024 4:59 AM EDT 10/09/2024 5:57 AM EDT Eileen Schroeder MD, PhD LAB BLOOD ORDERABLES Final Result [facility] [address] * (ABNORMAL) CBC (10/09/2024 4:59 AM EDT) WBC 4.6 3.8 - 10.8 10E3/uL 10/09/2024 6:21 AM EDT [facility] RBC 2.17(L) 4.20 - 5.80 10E6/uL 10/09/2024 6:21 AM EDT [facility] Hemoglobin 8.0(L) 13.2 - 17.1 g/dL 10/09/2024 6:21 AM EDT [facility] Hematocrit 21.8(L) 38.5 - 50.0 % 10/09/2024 6:21 AM EDT [facility] MCV 100.5(H) 80.0 - 100.0 fL 10/09/2024 6:21 AM EDT [facility] MCH 36.7(H) 27.0 - 33.0 pg 10/09/2024 6:21 AM EDT [facility] MCHC 36.5(H) 32.0 - 36.0 g/dL 10/09/2024 6:21 AM EDT [facility] RDW 18.1(H) 11.0 - 15.0 % 10/09/2024 6:21 AM EDT [facility] Platelets 36(L) 140 - 400 10E3/uL 10/09/2024 6:21 AM EDT [facility] Comment:Specimen checked for clots. None detected. MPV 8.3 7.5 - 11.5 fL 10/09/2024 6:21 AM EDT [facility] Whole Blood 10/09/2024 4:59 AM EDT 10/09/2024 5:56 AM EDT us Eileen Schroeder MD, PhD LAB BLOOD ORDERABLES Final Result [facility] [address] * Renal Tx Recipient (10/09/2024 4:59 AM EDT) Renal Transplant Recipient The request and specimen(s) for this test have been received and transported to the [facility] at [address] [place] [address]. The [facility] will report results directly to the client. 10/09/2024 7:26 AM EDT [facility] Blood 10/09/2024 4:59 AM EDT 10/09/2024 7:26 AM EDT us Aaron Gonzalez MD LAB BLOOD ORDERABLES Final Resu lt [facility] [address] [facility] * Vancomycin, random (10/09/2024 4:59 AM EDT) Vancomycin Random 11.0 ug/mL 10/09/2024 6:33 AM EDT [facility] Comment:Reference range not established for this test. Plasma 10/09/2024 4:59 AM EDT 10/09/2024 5:56 AM EDT us Jodi Ortiz PharmD LAB BLOOD ORDERABLES Final Result Performing Organization Address [facility]/ZIP Co de Phone Number [facility] [address] [facility] * (ABNORMAL) Renal Function Panel w/EGFR (10/09/2024 4:59 AM EDT) Sodium 134 133 - 146 mmol/L 10/09/2024 6:42 AM EDT [facility] Potassium 3.3(L) 3.5 - 5.3 mmol/L 10/09/2024 6:42 AM EDT [facility] Chloride 107 98 - 110 mmol/L 10/09/2024 6:42 AM EDT [facility] CO2 16(L) 21 - 33 mmol/L 10/09/2024 6:42 AM EDT [facility] Anion Gap 11 3 - 16 mmol/L 10/09/2024 6:42 AM EDT [facility] BUN 56(H) 7 - 25 mg/dL 10/09/2024 6:42 AM EDT [facility] Creatinine 2.98(H) 0.60 - 1.30 mg/dL 10/09/2024 6:42 AM EDT [facility] Glucose 112(H) 70 - 100 mg/dL 10/09/2024 6:42 AM EDT [facility] Calcium 9.0 8.6 - 10.3 mg/dL 10/09/2024 6:42 AM EDT [facility] Phosphorus 3.5 2.1 - 4.7 mg/dL 10/09/2024 6:42 AM EDT [facility] Albumin 3.4(L) 3.5 - 5.7 g/dL 10/09/2024 6:42 AM EDT [facility] Osmolality, Calculated 294 278 - 305 mOsm/kg 10/09/2024 6:42 AM EDT [facility] EGFR 26 10/09/2024 6:42 AM EDT [facility] Comment:As of 2021, the estimated [...] LAB BLOOD ORDERABLES Final Result [facility] [address] * (ABNORMAL) CBC (10/08/2024 5:52 PM EDT) WBC 5.6 3.8 - 10.8 10E3/uL 10/08/2024 6:52 PM EDT [facility] RBC 2.38(L) 4.20 - 5.80 10E6/uL 10/08/2024 6:52 PM EDT [facility] Hemoglobin 8.3(L) 13.2 - 17.1 g/dL 10/08/2024 6:52 PM EDT [facility] Hematocrit 24.6(L) 38.5 - 50.0 % 10/08/2024 6:52 PM EDT [facility] MCV 103.2(H) 80.0 - 100.0 fL 10/08/2024 6:52 PM EDT [facility] MCH 34.7(H) 27.0 - 33.0 pg 10/08/2024 6:52 PM EDT [facility] MCHC 33.6 32.0 - 36.0 g/dL 10/08/2024 6:52 PM EDT [facility] RDW 18.5(H) 11.0 - 15.0 % 10/08/2024 6:52 PM EDT [facility] Platelets 39(L) 140 - 400 10E3/uL 10/08/2024 6:52 PM EDT [facility] Comment:CNV MPV 8.1 7.5 - 11.5 fL 10/08/2024 6:52 PM EDT [facility] Whole Blood 10/08/2024 5:52 PM EDT 10/08/2024 6:45 PM EDT Eileen Schroeder MD, PhD LAB BLOOD ORDERABLES Final Result Performing Organization Address [facility] de Phone Number [facility] [address] * Transfuse RBC Has consent been obtained? Yes; Transfusion Rate: Per dept routine (10/08/2024 1:17 PM EDT) Eileen Schroeder MD, PhD NURSING TREATMENT ORD ERABLES - BLOOD ADMIN Final Result Performing Organization Address [place]/[facility] Co de Phone Number EXTERNAL * Transfuse RBC Has consent been obtained? Yes; Transfusion Rate: Per dept routine, 1 Units (10/08/2024 1:17 PM EDT) Eileen Schroeder MD, PhD NURSING TREATMENT ORD ERABLES - BLOOD ADMIN Final Result Performing Organization Address City/[facility] Co de Phone Number EXTERNAL * (ABNORMAL) MMR(IgG) Panel (Measles, Mumps, Rubella) (10/08/2024 10:25 AM EDT) Mumps IgG Positive 10/08/2024 11:39 AM EDT [facility] MUMPS IGG NUM 99.00(H) 0.0 - 8.9 U/mL 10/08/2024 11:39 AM EDT [facility] Rubella IgG Scr Positive 10/08/2024 11:40 AM EDT [facility] RUB NUM 4.15(H) 0.00 - 0.89 INDEX 10/08/2024 11:40 AM EDT [facility] Rubeola Ab, IgG Positive 10/08/2024 11:39 AM EDT [facility] RUB IGG NUM 273.00(H) 0.00 - 13.40 U/mL 10/08/2024 11:39 AM EDT [facility] Serum 10/08/2024 10:2 5 AM EDT 10/08/2024 10:49 AM EDT Narrative [facility] - 10/08/2024 11:40 AM EDT [...] BLOOD ORDERABLES Final Resu lt [facility] [address] [place] [address], [facility] * (ABNORMAL) Hemoglobin A1C (10/08/2024 10:25 AM EDT) Hemoglobin A1C 3.7(L) 4.0 - 5.6 % 10/09/2024 1:22 PM EDT [facility] Comment: Hemoglobin A1c Interpretation Guidelines: [...] BLOOD ORDERABLES Final Resu lt [facility] [address] [facility] * (ABNORMAL) Vitamin D 25 Hydroxy (10/08/2024 10:25 AM EDT) Vit D, 25-Hydroxy 7.1(L) 30.0 - 100.0 ng/mL 10/08/2024 11:36 AM EDT [facility] Comment: Vitamin D deficiency has been defined by the [place] [employer] (IOM) and an Endocrine Society [...] BLOOD ORDERABLES Final Resu lt [facility] [address] [facility] * Iron Studies (Iron + TIBC) (10/08/2024 10:25 AM EDT) Iron 81 50 - 212 ug/dL 10/08/2024 11:23 AM EDT [facility] % Iron Saturation SEE COMMENT 15.0 - 55.0 % 10/08/2024 11:23 AM EDT [facility] Comment:Unable to calculate result because contributing result outside reportable range.. TIBC SEE COMMENT 261 - 462 ug/dL 10/08/2024 11:23 AM EDT [facility] Comment:Unable to calculate result because contributing result outside reportable range.. Serum 10/08/2024 10:2 5 AM EDT 10/08/2024 10:49 AM EDT Gerri Peterson MD LAB BLOOD ORDERABLES Final Resu lt [facility] [address] * (ABNORMAL) Ferritin (10/08/2024 10:25 AM EDT) Ferritin 706.9(H) 23.9 - 336.2 ng/mL 10/08/2024 11:35 AM EDT [facility] Serum 10/08/2024 10:2 5 AM EDT 10/08/2024 10:49 AM EDT Gerri Peterson MD LAB BLOOD ORDERABLES Final Resu lt Performing Organization Address City/[facility]/ZIP Co de Phone Number [facility] [address] * QuantiFERON TB2 Ag (10/08/2024 10:25 AM EDT) QuantiFERON TB2 Ag Value 0.07 10/10/2024 10:41 AM EDT [facility] Plasma 10/08/2024 10:2 5 AM EDT 10/08/2024 11:05 AM EDT Gerri Peterson MD LAB BLOOD ORDERABLES Final Resu lt [facility] [address] * QuantiFERON TB1 Ag (10/08/2024 10:25 AM EDT) QuantiFERON TB1 Ag Value 0.06 10/10/2024 10:41 AM EDT [facility] Plasma 10/08/2024 10:2 5 AM EDT 10/08/2024 11:05 AM EDT Gerri Peterson MD LAB BLOOD ORDERABLES Final Resu lt Performing Organization Address City/[facility]/ZIP Co de Phone Number [facility] [address] [facility] * QuantiFERON Nil (10/08/2024 10:25 AM EDT) QuantiFERON Nil 0.06 10:41 AM EDT [facility] Plasma 10/08/2024 10:2 5 AM EDT 10/08/2024 11:05 AM EDT Result [facility] Gerri Peterson MD LAB BLOOD ORDERABLES Final Resu lt Performing Organization Address City/[facility] Co de Phone Number [facility] [address] [facility] * QuantiFERON Mitogen (10/08/2024 10:25 AM EDT) QuantiFERON Interpretation Negative Negative 10/10/2024 10:41 AM EDT [facility] Comment:Negative result geovanny cates M. tuberculosis infection is NOT likely. Negative results do not preclude tuberculosis infection (especially in immunosuppressed patients). Negative results have a TB antigen minus Nil value less than 0.35 IU/mL. In cases with high suspicion of disease, retesting or additional testing with medical evaluation may be useful. QuantiFERON Mitogen 4.87 10/10 10:41 AM EDT [facility] Plasma 10/08/2024 10:2 5 AM EDT 10/08/2024 11:05 AM EDT Narrative [facility] - 10/10/2024 10:41 AM EDT [...] Final Resu lt Performing Organization Address [facility] Co de Phone Number [facility] [address] [facility] * Reticulocyte Count, Auto (10/08/2024 7:41 AM EDT) Retic Ct Pct 1.35 0.50 - 2.00 % 10/08/2024 9:12 AM EDT [facility] Retic Ct Abs 26,190 25,000 - 90,000 /uL 10/08/2024 9:14 AM EDT [facility] Immature Retic Fract 0.37 0.09 - 0.56 10/08/2024 9:12 AM EDT [facility] Whole Blood 10/08/2024 7:41 AM EDT 10/08/2024 8:51 AM EDT Angie Blanchard MD LAB BLOOD ORDERABLES Final Res ult Performing Organization Address [facility] Co de Phone Number [facility] [address] [facility] * (ABNORMAL) Haptoglobin (10/08/2024 7:41 AM EDT) Haptoglobin <30(L) 44 - 215 mg/dL 10/08/2024 8:53 AM EDT [facility] Serum 10/08/2024 7:41 AM EDT 10/08/2024 7:51 AM EDT Eileen Schroeder MD, PhD LAB BLOOD ORDERABLES Final Result [facility] [address] [place] [address], [facility] * (ABNORMAL) CBC - Post Transfusion (10/08/2024 7:41 AM EDT) WBC 3.7(L) 3.8 - 10.8 10E3/uL 10/08/2024 8:34 AM EDT [facility] RBC 1.94(L) 4.20 - 5.80 10E6/uL 10/08/2024 8:34 AM EDT [facility] Hemoglobin 7.1(L) 13.2 - 17.1 g/dL 10/08/2024 8:34 AM EDT [facility] Hematocrit 20.0(L) 38.5 - 50.0 % 10/08/2024 8:34 AM EDT [facility] MCV 103.1(H) 80.0 - 100.0 fL 10/08/2024 8:34 AM EDT [facility] MCH 36.5(H) 27.0 - 33.0 pg 10/08/2024 8:34 AM EDT [facility] MCHC 35.4 32.0 - 36.0 g/dL 10/08/2024 8:34 AM EDT [facility] RDW 17.2(H) 11.0 - 15.0 % 10/08/2024 8:34 AM EDT [facility] Platelets 37(L) 140 - 400 10E3/uL 10/08/2024 8:34 AM EDT [facility] Comment: Specimen checked for clots. None detected. Slide Reviewed for PLT Clumps. None Seen. _Platelet Morphology Normal _Platelets Appear Decreased MPV 8.7 7.5 - 11.5 fL 10/08/2024 8:34 AM EDT [facility] Whole Blood 10/08/2024 7:41 AM EDT 10/08/2024 7:52 AM EDT Narrative [facility] - 10/08/2024 8:34 AM EDT Post-transfusion Eileen Schroeder MD, PhD LAB BLOOD ORDERABLES Final Result Performing Organization Address [facility] Co de Phone Number [facility] [address] [facility]. [address] * Antibody Screen (10/08/2024 7:41 AM EDT) Antibody Screen Negative 10/08/2024 8:26 AM EDT [facility] Blood 10/08/2024 7:41 AM EDT 10/08/2024 7:57 AM EDT Narrative [facility] - 10/08/2024 8:32 AM EDT Testing performed by [facility] Transfusion Service us Eileen Schroeder MD, PhD BLOOD BANK TEST ORDER PAL Final Result Performing Organization Address [facility] Co de Phone Number [facility] [address] [facility]. [address] * ABO/Rh (10/08/2024 7:41 AM EDT) ABO Grouping O 10/08/2024 8:14 AM EDT [facility] Rh Type Positive 10/08/2024 8:14 AM EDT [facility] Blood 10/08/2024 7:41 AM EDT 10/08/2024 7:57 AM EDT Eileen Schroeder MD, PhD BLOOD BANK TEST ORDER PAL Final Result Performing Organization Address [facility] Co de Phone Number [facility] [address] [facility]. [address] * (ABNORMAL) Lactate dehydrogenase (10/08/2024 5:36 AM EDT) LD 102(L) 110 - 270 U/L 10/08/2024 8:20 AM EDT [facility] Plasma 10/08/2024 5:36 AM EDT 10/08/2024 7:58 AM EDT Angie Blanchard MD LAB BLOOD ORDERABLES Final Res ult Performing Organization Address [facility] Co de Phone Number [facility] [address] [facility] * (ABNORMAL) Protime-INR (10/08/2024 5:36 AM EDT) Pathologist [facility] Protime 26.9(H) 12.1 - 15.1 seconds 10/08/2024 6:11 AM EDT [facility] INR 2.4(H) 0.9 - 1.1 10/08/2024 6:11 AM EDT [facility]ALTH LAB Comment: RECOMMENDED THERAPEUTIC RANGES USING INR : Stable oral anticoagulant therapy: 2.0 - 3.0 Mechanical prosthetic heart valve: 2.5 - 3.5 Recurrent acute myocardial infarction: 2.5 - 3.5 Plasma 10/08/2024 5:36 AM EDT 10/08/2024 5:52 AM EDT Eileen Schroeder MD, PhD LAB BLOOD ORDERABLES Final Result Performing Organization Address [facility] Co de Phone Number [facility] [address] [facility] * (ABNORMAL) Hepatic Function Panel (10/08/2024 5:36 AM EDT) Total Bilirubin 7.7(H) 0.0 - 1.5 mg/dL 10/08/2024 6:25 AM EDT [facility] Bilirubin, Direct 4.28(H) 0.00 - 0.40 mg/dL 10/08/2024 6:25 AM EDT [facility] AST 34 13 - 39 U/L 10/08/2024 6:25 AM EDT [facility] ALT 16 7 - 52 U/L 10/08/2024 6:25 AM EDT [facility] Alkaline Phosphatase 103 36 - 125 U/L 10/08/2024 6:25 AM EDT [facility] Total Protein 4.7(L) 6.4 - 8.9 g/dL 10/08/2024 6:25 AM EDT [facility] Albumin 3.5 3.5 - 5.7 g/dL 10/08/2024 6:25 AM EDT [facility] Bilirubin, Indirect 3.42(H) 0.00 - 1.10 mg/dL 10/08/2024 6:25 AM EDT [facility] Plasma 10/08/2024 5:36 AM EDT 10/08/2024 5:52 AM EDT Eileen Schroeder MD, PhD LAB BLOOD ORDERABLES Final Result Performing Organization Address City/[facility]/ZIP Co de Phone Number [facility] [address] * Magnesium (10/08/2024 5:36 AM EDT) Magnesium 1.9 1.5 - 2.5 mg/dL 10/08/2024 6:25 AM EDT [facility] Plasma 10/08/2024 5:36 AM EDT 10/08/2024 5:52 AM EDT Eileen Schroeder MD, PhD LAB BLOOD ORDERABLES Final Result Performing Organization Address [facility] de Phone Number [facility] [address] * (ABNORMAL) CBC (10/08/2024 5:36 AM EDT) WBC 3.2(L) 3.8 - 10.8 10E3/uL 10/08/2024 6:41 AM EDT [facility] RBC 1.86(L) 4.20 - 5.80 10E6/uL 10/08/2024 6:41 AM EDT [facility] Hemoglobin 6.9(L) 13.2 - 17.1 g/dL 10/08/2024 6:41 AM EDT [facility] Hematocrit 18.9(L) 38.5 - 50.0 % 10/08/2024 6:41 AM EDT [facility] MCV 101.6(H) 80.0 - 100.0 fL 10/08/2024 6:41 AM EDT [facility] MCH 36.9(H) 27.0 - 33.0 pg 10/08/2024 6:41 AM EDT [facility] MCHC 36.3(H) 32.0 - 36.0 g/dL 10/08/2024 6:41 AM EDT [facility] RDW 17.0(H) 11.0 - 15.0 % 10/08/2024 6:41 AM EDT [facility] Platelets 34(L) 140 - 400 10E3/uL 10/08/2024 6:41 AM EDT [facility] Comment: Specimen checked for clots. None detected. Slide Reviewed for PLT Clumps. None Seen. Platelet Estimate Decreased 10/08/2024 6:41 AM EDT [facility] MPV 8.4 7.5 - 11.5 fL 10/08/2024 6:41 AM EDT [facility] Whole Blood 10/08/2024 5:36 AM EDT 10/08/2024 5:53 AM EDT Narrative [facility] - 10/08/2024 6:41 AM EDT Peripheral blood smear was scanned per review criteria approved by the laboratory medical science liaison. us Eileen Schroeder MD, PhD LAB BLOOD ORDERABLES Final Result [facility] [address] * Vancomycin, random (10/08/2024 5:36 AM EDT) Pathologist [facility] Vancomycin Random 16.0 ug/mL 10/08/2024 6:20 AM EDT [facility] Comment:Reference range not established for this test. Plasma 10/08/2024 5:36 AM EDT 10/08/2024 5:52 AM EDT us Jodi FreireD LAB BLOOD ORDERABLES Final Result Performing Organization Address [facility]/ZIP Co de Phone Number [facility] [address] * (ABNORMAL) Renal Function Panel w/EGFR (10/08/2024 5:36 AM EDT) Pathologist [facility] Sodium 135 133 - 146 mmol/L 10/08/2024 6:25 AM EDT [facility] Potassium 3.2(L) 3.5 - 5.3 mmol/L 10/08/2024 6:25 AM EDT [facility] Chloride 106 98 - 110 mmol/L 10/08/2024 6:25 AM EDT [facility] CO2 17(L) 21 - 33 mmol/L 10/08/2024 6:25 AM EDT [facility] Anion Gap 12 3 - 16 mmol/L 10/08/2024 6:25 AM EDT [facility] BUN 61(H) 7 - 25 mg/dL 10/08/2024 6:25 AM EDT [facility] Creatinine 3.10(H) 0.60 - 1.30 mg/dL 10/08/2024 6:25 AM EDT [facility] Glucose 106(H) 70 - 100 mg/dL 10/08/2024 6:25 AM EDT [facility] Calcium 9.0 8.6 - 10.3 mg/dL 10/08/2024 6:25 AM EDT [facility] Phosphorus 4.0 2.1 - 4.7 mg/dL 10/08/2024 6:25 AM EDT [facility] Albumin 3.5 3.5 - 5.7 g/dL 10/08/2024 6:25 AM EDT [facility] Osmolality, Calculated 298 278 - 305 mOsm/kg 10/08/2024 6:25 AM EDT [facility] EGFR 25 10/08/2024 6:25 AM EDT [facility] Comment:As of 2021, the estimated [...] BLOOD ORDERABLES Final Result Performing Organization Address City/[facility]/ZIP Co de Phone Number [facility] [address] [facility] * Urine Drug Confirmation (10/07/2024 10:50 PM EDT) BARBITURATES NOT PRESENT 10/09/2024 1:33 PM EDT [facility] BENZODIAZEPINES PRESENT 1:33 PM EDT [facility] Nordiazepam 3 ng/mL 10/09/2024 1:33 PM EDT [facility] Temazepam 6 ng/mL 10/09/2024 1:33 PM EDT [facility] CANNABINOIDS NOT PRESENT 10/09/2024 1:33 PM EDT [facility] SPECIAL EDUCATION ASSOCIATE STIMULANTS NOT PRESENT 1:33 PM EDT [facility] OPIOID ANALGESICS PRESENT 025 1:33 PM EDT [facility] Oxycodone 300 ng/mL 10/09/2024 1:33 PM EDT [facility] Oxymorphone 32 ng/mL 10/09/2024 1:33 PM EDT [facility] Tramadol >1000 ng/mL 10/09/2024 1:33 PM EDT [facility] OPIOID ANTAGONISTS NOT PRESENT 10/09 1:33 PM EDT [facility] SEDATIVES/MUSCLE RELAXANTS NOT PRESENT 10/09/2024 1:33 PM EDT [facility] TRICYCLIC ANTIDEPRESSANTS NOT PRESENT 10/09/2024 1:33 PM EDT [facility] Urine 10/07/2024 10:5 0 PM EDT 10/08/2024 3:00 AM EDT us Gerri Peterson MD URINE ORDERABLES Final Result Performing Organization Address [facility]/ZIP Co de Phone Number [facility] [address] * Giardia Cryptosporidium Antigens (10/07/2024 10:50 PM EDT) Cryptosporidium Ag Negative Negative 2024 7:59 AM EDT [facility] Giardia Ag Negative Negative 10/08/2024 7:59 AM EDT [facility] Comment: Detection of Giardia and Cryptosporidium antigen is more sensitive and specific than microscopy. Because antigens are shed continuously, repeat testing is rarely warranted. Feces 10/07/2024 10:5 0 PM EDT 10/08/2024 1:53 AM EDT Comment:F Bisi Hernandez DO MICROBIOLOGY - GENERAL ORDERABLE S Final Result [facility] [address] * (ABNORMAL) Urine Drug Screen Reflex to Confirmation (10/07/2024 10:50 PM EDT) Amphetamine, 500 ng/mL Cutoff Negative Negative 10/08/2024 3:00 AM EDT [facility] Barbiturates UR, 300 ng/mL Cutoff Negative Negative 10/08/2024 3:00 AM EDT [facility] Buprenorphine, 5 ng/mL Cutoff Negative Negative 10/08/2024 3:00 AM EDT [facility] Benzodiazepines UR, 300 ng/mL Cutoff Negative Negative 10/08/2024 3:00 AM EDT [facility] Cocaine UR, 300 ng/mL Cutoff Negative Negative 10/08/2024 3:00 AM EDT [facility] Methadone, UR, 300 ng/mL Cutoff Negative Negative 10/08/2024 3:00 AM EDT [facility] Opiates UR, 300 ng/mL Cutoff Negative Negative 10/08/2024 3:00 AM EDT [facility] Oxycodone, 100 ng/mL Cutoff Presumptive Positive(A) Negative 10/08/2024 3:00 AM EDT [facility] Tricyclic Antidepressants, 300 ng/mL Cutoff Negative Negative 10/08/2024 3:00 AM EDT [facility] Comment:This test has been d eveloped and its performance characteristics determined by [facility] which is certified under the [...] Negative 10/08/2024 3:00 AM EDT [facility] Comment:This is a screening method only and may be associated with false positive and/or false negative results. Results are not definitive without additional confirmatory testing by mass spectrometry. Fentanyl, 2 ng/mL Cutoff Negative Negative 10/08/2024 3:00 AM EDT [facility] Comment:This test has been d eveloped and its performance characteristics determined by [facility] which is certified under the [...] 10/08/2024 2:08 AM EDT Narrative [facility] - 10/08/2024 3:00 AM EDT CONFIRMATION TO FOLLOW Gerri Peterson MD URINE ORDERABLES Final Result [facility] [address] [id number], [facility] * Comprehensive Drug Screen (10/07/2024 10:50 PM EDT) Creatinine, Ur CANCELED mg/dL 10/08/2024 7:09 AM EDT [facility] Comment:The released value 8 7.30 was canceled by YAQUELIN on 10/08/2024 07:09 BARBITURATES [facility] Butalbital [facility] Phenobarbital [facility] Secobarbital [facility] BENZODIAZEPINES [facility]CELED H [facility] Alprazolam CANCELED [facility] Clonazepam CANCELED [facility] Diazepam CANCELED [facility] Alpha-Hydroxyalprazo mcknight CANCELED [facility] Lorazepam CANCELED [facility] Midazolam CANCELED [facility] Nordiazepam CANCELED [facility] Oxazepam CANCELED [facility] Temazepam CANCELED [facility] CANNABINOIDS CANCELED [facility] THC-COOH CANCELED [facility] SPECIAL EDUCATION ASSOCIATE STIMULANTS CANCELED [facility] Cocaine Metabolite(benzoylec gonine) CANCELED [facility] Amphetamine CANCELED [facility] Methamphetamine [facility]ED [facility] MDA CANCELED [facility] MDEA CANCELED [facility] Phencyclindine (PCP) CANCELED [facility] OPIOID ANALGESICS CANCELED [facility] Heroin Metabolite(6-RAMONA) CANCELED [facility] Codeine CANCELED [facility] Morphine CANCELED [facility] Hydrocodone CANCELED [facility] Hydromorphone CANCELED [facility] Oxycodone CANCELED [facility] Oxymorphone CANCELED [facility] Meperidine CANCELED [facility] Normeperidine CANCELED [facility] Methadone CANCELED [facility] Methadone Metabolite (EDDP) CANCELED [facility] Tramadol CANCELED [facility] Fentanyl CANCELED [facility] Norfentanyl CANCELED [facility] Sufentanil CANCELED [facility] OPIOID ANTAGONISTS CANCELED [facility] Buprenorphine CANCELED [facility] Norbuprenorphine CANCELED [facility] Naltrexone CANCELED [facility] Naloxone CANCELED [facility] SEDATIVES/MUSCLE RELAXANTS CANCELED [facility] Carisoprodol CANCELED [facility] Meprobamate CANCELED [facility] TRICYCLIC ANTIDEPRESSANTS CANCELED [facility] Amitriptyline CANCELED [facility] Clomipramine CANCELED [facility] Desipramine [facility]ELED [facility] Doxepin CANCELED [facility] Imipramine CANCELED [facility] Nortriptyline CANCELED [facility] Urine Creatinine CANCELED mg/dL [facility] Nitrite CANCELED [facility] Glutaraldehyde CANCELED [facility] pH CANCELED 10/08/2024 7:09 AM EDT [facility] Comment:The released value 5 .6 was canceled by MABLEE on 10/08/2024 07:09 Specific [place] CANCELED 10/09/19 7:09 AM EDT [facility] Comment:The released value 1 .009 was canceled by MABLEE on 10/08/2024 07:09 Bleach CANCELED [facility] Pyridinium Chlorochromate CANCELED [facility] Urine 10/07/2024 10:5 0 PM EDT 10/08/2024 2:07 AM EDT Narrative [facility] - 10/08/2024 7:09 AM EDT See accn [id number] Gerri Peterson MD URINE ORDERABLES Edited Result - Final Performing Organization Address [facility] Co de Phone Number [facility] [address] * Ova and Parasite Comprehensive w/ Giardia/Crypto (10/07/2024 10:50 PM EDT) O & P Method: Concentration and Trichrome Stain [facility] Results No Amoeba, Ova, Or Parasites Seen. -- O and P examination of additional specimens is recommended only for symptomatic patients, immunosuppressed patients or those with an appropriate travel history. [facility] Feces FECES / Unknown 10/07/2024 1 0:50 PM EDT 10/08/2024 1:53 AM EDT Comment:F Bisi Hernandez DO MICROBIOLOGY - GENERAL ORDERABLE S Final Result Performing Organization Address City/[facility]/ZIP Co de Phone Number [facility] [address] [facility] * Enteric Pathogen Panel (10/07/2024 10:50 PM EDT) Campylobacter Group (C. ecoli, C. jejuni, C. trino) Not Detected Not Detected 10/08/2024 4:40 AM EDT [facility] Salmonella species Not Detected Not Detected 10/08/2024 4:40 AM EDT [facility] Shigella species Not Detected Not Detected 10/08/2024 4:40 AM EDT [facility] Vibrio Group (Vibrio cholerae, Vibrio parahaemolyticus) Not Detected Not Detected 10/08/2024 4:40 AM EDT [facility] Yersinia enterocolitica Not Detected Not Detected 10/08/2024 4:40 AM EDT [facility] Shiga toxin 1 Not Detected Not Detected 10/08/2024 4:40 AM EDT [facility] Shiga toxin 2 Not Detected Not Detected 10/08/2024 4:40 AM EDT [facility] Norovirus Not Detected Not Detected 10/08/2024 4:40 AM EDT [facility] Rotavirus Not Detected Not Detected 10/08/2024 4:40 AM EDT [facility] Comment: The Enteric Pathogen Panel [...] City/State/[facility] Co de Phone Number [facility] [address] [place], [place] [address] * Hepatitis C Antibody (10/07/2024 6:38 PM EDT) HCV Ab Nonreactive Nonreactive 10/07/2024 7:56 PM EDT [facility] Comment:Health Department no tified in accordance with reportable infectious disease guidelines. Serum 10/07/2024 6:38 PM EDT 10/07/2024 6:52 PM EDT Narrative [facility] - 10/07/2024 7:56 PM EDT Antibodies to HCV not detected; does not exclude the possibility of exposure to HCV. Gerri Peterson MD LAB BLOOD ORDERABLES Final Resu lt [facility] [address] * Hepatitis B Surface Antibody, Quantitati (10/07/2024 6:38 PM EDT) Hep B S Ab Nonreactive Nonreactive 10/07/2024 8:00 PM EDT [facility] HBSAB NUMBER 7.88 0.00 - 7.99 mIU/mL 10/07/2024 8:00 PM EDT [facility] Serum 10/07/2024 6:38 PM EDT 10/07/2024 6:52 PM EDT Narrative [facility] - 10/07/2024 8:00 PM EDT Individual is considered not immune to HBV infection. Gerri Peterson MD LAB BLOOD ORDERABLES Final Resu lt Performing Organization Address [facility]/ZIP Co de Phone Number [facility] [address] [facility]. [address] * Hepatitis B surface antigen (10/07/2024 6:38 PM EDT) Hep B Surface Ag Nonreactive Nonreactive 10/07/2024 7:51 PM EDT [facility] Comment:Health Department no tified in accordance with reportable infectious disease guidelines. Serum 10/07/2024 6:38 PM EDT 10/07/2024 6:52 PM EDT Narrative [facility] - 10/07/2024 7:51 PM EDT Specimen is considered negative for HBsAg. Result [facility] Gerri Peterson MD LAB BLOOD ORDERABLES Final Resu lt [facility] [address] * Hepatitis A Antibody Total (10/07/2024 6:38 PM EDT) Anti-HAV Total (IgG + IgM) Nonreactive 10/07/2024 7:53 PM EDT [facility] Serum 10/07/2024 6:38 PM EDT 10/07/2024 6:52 PM EDT [facility] - 10/07/2024 7:53 PM EDT HAV antibodies not detected Gerri Peterson MD LAB BLOOD ORDERABLES Final Resu lt Performing Organization Address City/[facility]/ZIP Co de Phone Number [facility] [address] [facility] * Hepatitis A IgM (10/07/2024 6:38 PM EDT) Pathologist [facility] Hep A IgM Nonreactive Nonreactive 10/07/2024 7:46 PM EDT [facility] Serum 10/07/2024 6:38 PM EDT 10/07/2024 6:52 PM EDT [facility] - 10/07/2024 7:46 PM EDT IgM anti-HAV not detected. Does not exclude the possibility of exposure to or infection with HAV. Levels of IgM anti-HAV may be below the cut-off in early infection. Gerri Peterson MD LAB BLOOD ORDERABLES Final Resu lt Performing Organization Address [facility] Co de Phone Number [facility] [address] [facility] * (ABNORMAL) Lipid Profile (10/07/2024 6:37 PM EDT) Non-HDL Cholesterol, Calculated See Note 0 - 129 mg/dL 10/07/2024 7:42 PM EDT [facility] Comment: Desirable: < 130 mg/dL Above Desirable: 130-159 mg/dL Borderline High: 160-189 mg/dL High: 190-219 mg/dL Very High: > 219 mg/dL Unable to calculate result either because contributing result(s) are outside of reportable range or are not available. Cholesterol, Total <25 0 - 200 mg/dL 10/07/2024 7:42 PM EDT [facility] Triglycerides 30 10 - 149 mg/dL 10/07/2024 7:42 PM EDT [facility] HDL 4(L) 60 - 92 mg/dL 10/07/2024 7:42 PM EDT [facility] Comment: LIPID PROFILE INTERPRETATION CHOLESTEROL,TOTAL(mg/dL) [...] Note mg/dL 7:42 PM EDT [facility] Comment:Unable to calculate result either because contributing result(s) are outside of reportable range or are not available. Plasma 10/07/2024 6:37 PM EDT 10/07/2024 7:06 PM EDT Narrative [facility] - 10/07/2024 7:42 PM EDT LDL cholesterol calculated using the Friedewald equation. us Gerri Peterson MD LAB BLOOD ORDERABLES Final Resu lt [facility] [address] [id number] * (ABNORMAL) Alpha 1 Antitrypsin AAT Quant & Mutation (10/07/2024 6:37 PM EDT) A-1 Antitrypsin 99(L) 101 - 187 mg/dL 10/09/2024 4:28 AM EDT [facility] A-1 Antitrypsin Pheno Comment 10/10/2024 4:05 PM EDT [facility] Comment: A1A Phenotype is consistent with a heterozygous phenotype consisting of one M (normal) allele and one allele that cannot be identified at this time. The unknown allele is not consistent with Z (deficient), S (deficient), or F (deficient). MM Phenotype is considered to be normal , producing normal serum levels of [id number] inhibitor and not associated with clinical disease. [...] PM EDT 10/10/2024 4:08 PM EDT Narrative [facility] - 10/10/2024 4:08 PM EDT PERFORMED AT: [facility] [address] [id number] GALLERY OR MUSEUM CURATOR: Bassam Khalil, PhD PHONE: [phone] PERFORMED AT: [facility] [address] [id number] GALLERY OR MUSEUM CURATOR: Mandy Abdul MD PHONE: [phone] us Gerri Peterson MD LAB BLOOD ORDERABLES Final Resu lt [facility] [address] [place] [address], [facility] * (ABNORMAL) CMV IgG Antibody (10/07/2024 6:37 PM EDT) CMV IgG Positive(A ) Negative 10/07/2024 8:26 PM EDT [facility] CMV IGG NUM 8.40(H) 0.00 - 0.59 U/mL 10/07/2024 8:26 PM EDT [facility] Serum 10/07/2024 6:37 PM EDT 10/07/2024 6:50 PM EDT us Gerri Peterson MD LAB BLOOD ORDERABLES Final Resu lt [facility] [address] [facility] * HIV-1 and HIV-2 Antibodies w Reflex (10/07/2024 6:37 PM EDT) HIV 1+2 AB/AGN Nonreactive Nonreactive 10/07/2024 7:54 PM EDT [facility] Serum 10/07/2024 6:37 PM EDT 10/07/2024 7:06 PM EDT Narrative [facility] - 10/07/2024 7:54 PM EDT \HIVRNR us Gerri Peterson MD LAB BLOOD ORDERABLES Final Resu lt Performing Organization Address City/[facility]/ZIP Co de Phone Number [facility] [address] [facility] * TSH (Thyroid Stimulating Hormone) (10/07/2024 6:37 PM EDT) TSH 0.81 0.45 - 4.12 uIU/mL 10/07/2024 8:17 PM EDT [facility] Serum 10/07/2024 6:37 PM EDT 10/07/2024 6:50 PM EDT us Gerri Peterson MD LAB BLOOD ORDERABLES Final Resu lt [facility] [address] [facility] * Katie-Watkins virus early antigen antibody, IgG (10/07/2024 6:37 PM EDT) Pathologist [facility] EBV Early Antigen Ab, IgG <9.0 0.0 - 8.9 U/mL 10/09/2024 2:16 PM EDT [facility] Comment: Negative < 9.0 Equivocal 9.0 - 10.9 Positive >10.9 Serum Frozen 10/07/2024 6:37 PM EDT 10/09/2024 3:07 PM EDT Narrative [facility] - 10/09/2024 3:07 PM EDT PERFORMED AT: [facility] [address] [id number] GALLERY OR MUSEUM CURATOR: Bassam Khalil, PhD PHONE: [phone] Gerri Peterson MD LAB BLOOD ORDERABLES Final Resu lt Performing Organization Address [facility] de Phone Number [facility] [address] [place] [address] * (ABNORMAL) Varicella zoster antibody, IgG (10/07/2024 6:37 PM EDT) [facility] Varicella IgG Positive( A) Negative S/CO 10/07/2024 8:34 PM EDT [facility] Comment:Result indicates the presence of [...] S/CO 10/07/2024 8:34 PM EDT [facility] Serum 10/07/2024 6:37 PM EDT 10/07/2024 6:50 PM EDT Gerri Peterson MD LAB BLOOD ORDERABLES Final Resu lt Performing Organization Address [facility] Co de Phone Number [facility] [address] * Toxoplasma gondii antibody, IgG (10/07/2024 6:37 PM EDT) Toxoplasma Gondii IgG <3.0 0.0 - 7.1 IU/mL 10/09/2024 7:53 AM EDT [facility] Comment: Negative <7.2 Equivocal 7.2 - 8.7 Positive >8.7 Serum 10/07/2024 6:37 PM EDT 10/09/2024 8:07 AM EDT Narrative [facility] - 10/09/2024 8:07 AM EDT PERFORMED AT: [facility] [id number] GALLERY OR MUSEUM CURATOR: Bassam Khalil, PhD PHONE: [phone] Gerri Peterson MD LAB BLOOD ORDERABLES Final Resu lt Performing Organization Address [facility] Co de Phone Number [facility] [address] [place] [address] * Syphilis Screening (Trepia) (10/07/2024 6:37 PM EDT) Pathologist [facility] Treponema Pallidum Negative Negative 10/07/2024 8:27 PM EDT [facility] Comment: No serological evidence of infection with Treponema pallidum (incubating or early primary syphilis cannot be excluded). Serum 10/07/2024 6:37 PM EDT 10/07/2024 6:50 PM EDT Gerri Peterson MD LAB BLOOD ORDERABLES Final Resu lt [facility] [address] * Strongyloides Ab (10/07/2024 6:37 PM EDT) Pathologist [facility] Strongyloides Ab Negative Negative 10/11/19 11:51 AM EDT [facility] Serum 10/07/2024 6:37 PM EDT 10/10/2024 12:07 PM EDT Narrative [facility] - 10/10/2024 12:07 PM EDT PERFORMED AT: [facility] [address] [place], [place] [id number] GALLERY OR MUSEUM CURATOR: Mandy Abdul MD PHONE: [phone] us Gerri Peterson MD LAB BLOOD ORDERABLES Final Resu lt [facility] [address] [address], [facility] * Phosphatidylethanol Confirmation, B (10/07/2024 6:37 PM EDT) PETH 16:0/18.1 (POPETH) <10 Cutoff: 10 ng/mL 10/10/2024 10:42 AM EDT [facility] Comment: Phosphatidylethanol (PEth) homologues result [...] ng/mL 10/10/2024 10:42 AM EDT [facility] Comment: PEth 16:0/18:2 (PLPEth) Reference ranges are not well established PEth Interpretation Negative. 10/10 10:42 AM EDT [facility] Comment: ADDITIONAL INFORMATION This report is intended for use in clinical monitoring and management of patients. It is not intended for use in employment-related testing. This test was developed and its performance characteristics determined by [facility] in a manner consistent with CLIA requirements. This test has not been cleared or approved by the U.S. Food and Drug Administration. Test Performed by: [facility] - [address] [id number] [employer] Smoother: Kathy Ortiz Ph.D.; CLIA# [id number] Whole Blood 10/07/2024 6:37 PM EDT 10/10/2024 10:42 AM EDT Gerri Peterson MD LAB BLOOD ORDERABLES Final Resu lt Performing Organization Address City/[facility]/ZIP Co de Phone Number [facility] [address] [facility] * (ABNORMAL) MMR(IgG) Panel (Measles, Mumps, Rubella) (10/07/2024 6:37 PM EDT) Mumps IgG Positive 10/07/2024 8:26 PM EDT [facility] MUMPS IGG NUM 77.80(H) 0.0 - 8.9 U/mL 10/07/2024 8:26 PM EDT [facility] Rubella IgG Scr Positive 10/07/2024 8:28 PM EDT [facility] RUB NUM 3.04(H) 0.00 - 0.89 INDEX 10/07/2024 8:28 PM EDT [facility] Rubeola Ab, IgG Positive 10/07/2024 8:26 PM EDT [facility] RUB IGG NUM 192.00(H) 0.00 - 13.40 U/mL 10/07/2024 8:26 PM EDT [facility] Serum 10/07/2024 6:37 PM EDT 10/07/2024 6:50 PM EDT Narrative [facility] - 10/07/2024 8:28 PM EDT [...] ORDERABLES Final Resu lt Performing Organization Address City/[facility]/ZIP Co de Phone Number [facility] [address] [facility] * IgA (10/07/2024 6:37 PM EDT) IgA 227.0 70.0 - 400.0 mg/dL 10/08/2024 11:07 AM EDT [facility] Comment:Please interpret the se findings in conjunction with clinical findings, protein electrophoresis, and immunotyping/immunofixation results. Serum 10/07/2024 6:37 PM EDT 10/07/2024 6:50 PM EDT Gerri Peterson MD LAB BLOOD ORDERABLES Final Resu lt [facility] [address] [facility] * Ethanol, Serum (10/07/2024 6:37 PM EDT) Ethanol <10 0 - 10 mg/dL 10/07/2024 8:36 PM EDT [facility] Serum 10/07/2024 6:37 PM EDT 10/07/2024 6:50 PM EDT Result [facility] Gerri Peterson MD LAB BLOOD ORDERABLES Final Resu lt Performing Organization Address [facility]/ZIP Co de Phone Number [facility] [address] [facility] * ABO/Rh - Second (10/07/2024 6:37 PM EDT) ABO Grouping O 10/07/2024 7:16 PM EDT [facility] Rh Type Positive 10/07/2024 7:16 PM EDT [facility] Blood 10/07/2024 6:37 PM EDT 10/07/2024 6:56 PM EDT Narrative [facility] - 10/07/2024 7:18 PM EDT This is not a duplicate order. It is required that ABO be drawn twice for LIVER TRANSPLANT Gerri Peterson MD BLOOD BANK TEST ORDERABLES Denisse l Result [facility] [address] * ABO/Rh- Initial (10/07/2024 6:37 PM EDT) ABO Grouping O 10/07/2024 7:59 PM EDT [facility] Rh Type Positive 10/07/2024 7:59 PM EDT [facility] Blood 10/07/2024 6:37 PM EDT 10/07/2024 7:25 PM EDT us Gerri Peterson MD BLOOD BANK TEST ORDERABLES Denisse l Result [facility] [address] * X-ray Mandible minimum 4-views (10/07/2024 [...] EXAM: US ABDOMEN COMPLETE EXAM: US DUPLEX [id number] COMPLETE INDICATION: elevated bilirubin COMPARISON: Ultrasound and [...] EXAM: US ABDOMEN COMPLETE EXAM: US DUPLEX [id number] COMPLETE INDICATION: elevated bilirubin COMPARISON: Ultrasound and [...] DO G US ORDERABLES Final Result * US Duplex Ukd-Vyi-Llyxkri Comp (10/07/2024 3:48 PM EDT) Anatomical Region [...] EXAM: US ABDOMEN COMPLETE EXAM: US DUPLEX [id number] COMPLETE INDICATION: elevated bilirubin COMPARISON: Ultrasound and [...] EXAM: US ABDOMEN COMPLETE EXAM: US DUPLEX [id number] COMPLETE INDICATION: elevated bilirubin COMPARISON: Ultrasound and [...] - 15.1 seconds 10/07/2024 6:55 AM EDT [facility] INR 2.4(H) 0.9 - 1.1 10/07/2024 6:55 AM EDT [facility] Comment: RECOMMENDED THERAPEUTIC RANGES USING INR : Stable oral anticoagulant therapy: 2.0 - 3.0 Mechanical prosthetic heart valve: 2.5 - 3.5 Recurrent acute myocardial infarction: 2.5 - 3.5 Plasma 10/07/2024 6:00 AM EDT 10/07/2024 6:39 AM EDT us Eileen Schroeder MD, PhD LAB BLOOD ORDERABLES Final Result [facility] [address] * (ABNORMAL) Hepatic Function Panel (10/07/2024 6:00 AM EDT) Total Bilirubin 9.7(H) 0.0 - 1.5 mg/dL 10/07/2024 7:10 AM EDT [facility] Bilirubin, Direct 5.21(H) 0.00 - 0.40 mg/dL 10/07/2024 7:10 AM EDT [facility] AST 39 13 - 39 U/L 10/07/2024 7:10 AM EDT [facility] ALT 18 7 - 52 U/L 10/07/2024 7:10 AM EDT [facility] Alkaline Phosphatase 98 36 - 125 U/L 10/07/2024 7:10 AM EDT [facility] Total Protein 4.8(L) 6.4 - 8.9 g/dL 10/07/2024 7:10 AM EDT [facility] Albumin 3.6 3.5 - 5.7 g/dL 10/07/2024 7:10 AM EDT [facility] Bilirubin, Indirect 4.49(H) 0.00 - 1.10 mg/dL 10/07/2024 7:10 AM EDT [facility] Plasma 10/07/2024 6:00 AM EDT 10/07/2024 6:39 AM EDT Eileen Schroeder MD, PhD LAB BLOOD ORDERABLES Final Result Performing Organization Address [facility] Co de Phone Number [facility] [address] * Magnesium (10/07/2024 6:00 AM EDT) Magnesium 1.7 1.5 - 2.5 mg/dL 10/07/2024 7:10 AM EDT [facility] Plasma 10/07/2024 6:00 AM EDT 10/07/2024 6:39 AM EDT Eileen Schroeder MD, PhD LAB BLOOD ORDERABLES Final Result Performing Organization Address [facility] Co de Phone Number [facility] [address] * (ABNORMAL) CBC (10/07/2024 6:00 AM EDT) WBC 3.3(L) 3.8 - 10.8 10E3/uL 10/07/2024 7:55 AM EDT [facility] RBC 2.06(L) 4.20 - 5.80 10E6/uL 10/07/2024 7:55 AM EDT [facility] Hemoglobin 7.4(L) 13.2 - 17.1 g/dL 10/07/2024 7:55 AM EDT [facility] Hematocrit 21.5(L) 38.5 - 50.0 % 10/07/2024 7:55 AM EDT [facility] MCV 104.1(H) 80.0 - 100.0 fL 10/07/2024 7:55 AM EDT [facility] MCH 35.8(H) 27.0 - 33.0 pg 10/07/2024 7:55 AM EDT [facility] MCHC 34.4 32.0 - 36.0 g/dL 10/07/2024 7:55 AM EDT [facility] RDW 17.5(H) 11.0 - 15.0 % 10/07/2024 7:55 AM EDT [facility] Platelets 35(L) 140 - 400 10E3/uL 10/07/2024 7:55 AM EDT [facility] Comment: Specimen checked for clots. None detected. Slide Reviewed for PLT Clumps. None Seen. _Platelet Morphology Normal _Platelets Appear Decreased Platelet Estimate Decreased 10/07/2024 7:55 AM EDT [facility] MPV 8.0 7.5 - 11.5 fL 10/07/2024 7:55 AM EDT [facility] Whole Blood 10/07/2024 6:00 AM EDT 10/07/2024 6:40 AM EDT Emergent Views [facility] - 10/07/2024 7:55 AM EDT Peripheral blood smear was scanned per review criteria approved by the laboratory medical science liaison. Eileen Schroeder MD, PhD LAB BLOOD ORDERABLES Final Result [facility] [address] * AFP Tumor Marker (10/07/2024 6:00 AM EDT) AFP-Tumor Marker 2.0 0.0 - 9.0 ng/mL 10/07/2024 7:11 AM EDT [facility] Serum 10/07/2024 6:00 AM EDT 10/07/2024 6:39 AM EDT Narrative [facility] - 10/07/2024 7:11 AM EDT The testing method for AFP is a chemiluminescent immunoassay manufactured by [employer] Concentrations of AFP obtained by different assay methods or kits may vary and cannot be used interchangeably. AFP results cannot be interpreted as absolute evidence of the presence or absence of malignant disease. Shila Rivera MD LAB BLOOD ORDERABLES Final Resul t [facility] [address] [facility] * Vancomycin, random (10/07/2024 6:00 AM EDT) Vancomycin Random 21.1 ug/mL 10/07/2024 7:08 AM EDT [facility] Comment:Reference range not established for this test. Plasma 10/07/2024 6:00 AM EDT 10/07/2024 6:39 AM EDT Kiet Gardiner PharmD LAB BLOOD ORDERABLES Final Re sult Performing Organization Address [facility]/ZIP Co de Phone Number [facility] [address] [facility] * (ABNORMAL) Renal Function Panel w/EGFR (10/07/2024 6:00 AM EDT) Sodium 132(L) 133 - 146 mmol/L 10/07/2024 7:10 AM EDT [facility] Potassium 3.9 3.5 - 5.3 mmol/L 10/07/2024 7:10 AM EDT [facility] Chloride 103 98 - 110 mmol/L 10/07/2024 7:10 AM EDT [facility] CO2 19(L) 21 - 33 mmol/L 10/07/2024 7:10 AM EDT [facility] Anion Gap 10 3 - 16 mmol/L 10/07/2024 7:10 AM EDT [facility] BUN 64(H) 7 - 25 mg/dL 10/07/2024 7:10 AM EDT [facility] Creatinine 3.38(H) 0.60 - 1.30 mg/dL 10/07/2024 7:10 AM EDT [facility] Glucose 111(H) 70 - 100 mg/dL 10/07/2024 7:10 AM EDT [facility] Calcium 9.1 8.6 - 10.3 mg/dL 10/07/2024 7:10 AM EDT [facility] Phosphorus 4.2 2.1 - 4.7 mg/dL 10/07/2024 7:10 AM EDT [facility] Albumin 3.6 3.5 - 5.7 g/dL 10/07/2024 7:10 AM EDT [facility] Osmolality, Calculated 293 278 - 305 mOsm/kg 10/07/2024 7:10 AM EDT [facility] EGFR 22 10/07/2024 7:10 AM EDT [facility] Comment:As of 2021, the estimated [...] LAB BLOOD ORDERABLES Final Result [facility] [address] [place] [address], [facility] * Osmolality (10/06/2024 2:50 PM EDT) Osmolality, Measured 304 278 - 305 mOsm/kg 10/06/2024 3:49 PM EDT [facility] Serum 10/06/2024 2:50 PM EDT 10/06/2024 2:56 PM EDT Chari Vanegas MD LAB BLOOD ORDERABLES Final Resul t [facility] [address] [address], [facility] * CT Head [...] Eileen Schroeder MD, PhD IMG CT ORDERABLES [facility] al Result * Chloride, urine, random (10/06/2024 1:25 PM EDT) Chloride, Ur <15 mmol/L 10/06/2024 1:56 PM EDT [facility] Comment:Reference range not established for this test. Urine 10/06/2024 1:25 PM EDT 10/06/2024 1:32 PM EDT Chari Vanegas MD URINE ORDERABLES Final Result Performing Organization Address [facility]/ZIP Co de Phone Number [facility] [address] [place] [address] * Potassium, urine, random (10/06/2024 1:25 PM EDT) Potassium Urine Random 50.0 mmol/L 10/06/2024 1:56 PM EDT [facility] Comment:Reference range not established for this test. Urine 10/06/2024 1:25 PM EDT 10/06/2024 1:32 PM EDT Chari Vanegas MD URINE ORDERABLES Final Result Performing Organization Address [facility] Co de Phone Number [facility] [address] * Sodium, urine, random (10/06/2024 1:25 PM EDT) Sodium, Ur <10 mmol/L 10/06/2024 1:56 PM EDT [facility] Comment:Reference range not established for this test. Urine 10/06/2024 1:25 PM EDT 10/06/2024 1:32 PM EDT us Chari Vanegas MD URINE ORDERABLES Final Result Performing Organization Address [facility]/ZIP Co de Phone Number [facility] [address] [facility]. [address] * Creatinine, Urine, Random (10/06/2024 1:25 PM EDT) Creatinine, Urine 87.40 mg/dL 10/06/2024 1:56 PM EDT [facility] Comment:Reference range not established for this test. Urine 10/06/2024 1:25 PM EDT 10/06/2024 1:32 PM EDT us Chari Vanegas MD URINE ORDERABLES Final Result Performing Organization Address [facility] Co de Phone Number [facility] [address] [facility]. [address] * Osmolality, Urine (10/06/2024 1:25 PM EDT) Osmolality, Ur 386 50 - 1,200 mOsm/kg 10/06/2024 1:55 PM EDT [facility] Urine 10/06/2024 1:25 PM EDT 10/06/2024 1:32 PM EDT us Chari Vanegas MD URINE ORDERABLES Final Result Performing Organization Address [facility] Co de Phone Number [facility] [facility] [address] [facility] * Urine Drug Confirmation (10/06/2024 11:51 AM EDT) BARBITURATES NOT PRESENT 10/09/2024 3:23 PM EDT [facility] Comment:Results were recheck ed. BENZODIAZEPINES PRESENT 3:23 PM EDT [facility] Nordiazepam 3 ng/mL 10/09/2024 3:23 PM EDT [facility] Comment:Results were recheck ed. Temazepam 8 ng/mL 10/09/2024 3:23 PM EDT [facility] Comment:Results were recheck ed. CANNABINOIDS NOT PRESENT 10/09/2024 3:23 PM EDT [facility] SPECIAL EDUCATION ASSOCIATE STIMULANTS NOT PRESENT 3:23 PM EDT [facility] OPIOID ANALGESICS PRESENT 025 3:23 PM EDT [facility] Oxycodone 329 ng/mL 10/09/2024 3:23 PM EDT [facility] Oxymorphone 61 ng/mL 10/09/2024 3:23 PM EDT [facility] Tramadol >1000 ng/mL 10/09/2024 3:23 PM EDT [facility] OPIOID ANTAGONISTS NOT PRESENT 10/09 3:23 PM EDT [facility] SEDATIVES/MUSCLE RELAXANTS NOT PRESENT 10/09/2024 3:23 PM EDT [facility] TRICYCLIC ANTIDEPRESSANTS NOT PRESENT 10/09/2024 3:23 PM EDT [facility] Urine 10/06/2024 11:5 1 AM EDT 10/06/2024 1:13 PM EDT us Bisi Hernandez DO URINE ORDERABLES Final Result [facility] [address] * (ABNORMAL) Urine Drug Screen Reflex to Confirmation (10/06/2024 11:51 AM EDT) Amphetamine, 500 ng/mL Cutoff Negative Negative 10/06/2024 1:13 PM EDT [facility] Barbiturates UR, 300 ng/mL Cutoff Negative Negative 10/06/2024 1:13 PM EDT [facility] Buprenorphine, 5 ng/mL Cutoff Negative Negative 10/06/2024 1:13 PM EDT [facility] Benzodiazepines UR, 300 ng/mL Cutoff Negative Negative 10/06/2024 1:13 PM EDT [facility] Cocaine UR, 300 ng/mL Cutoff Negative Negative 10/06/2024 1:13 PM EDT [facility] Methadone, UR, 300 ng/mL Cutoff Negative Negative 10/06/2024 1:13 PM EDT [facility] Opiates UR, 300 ng/mL Cutoff Negative Negative 10/06/2024 1:13 PM EDT [facility] Oxycodone, 100 ng/mL Cutoff Presumptive Positive(A) Negative 10/06/2024 1:13 PM EDT [facility] Tricyclic Antidepressants, 300 ng/mL Cutoff Negative Negative 10/06/2024 1:13 PM EDT [facility] Comment:This test has been d eveloped and its performance characteristics determined by [facility] which is certified under the [...] Negative 10/06/2024 1:13 PM EDT [facility] Comment:This is a screening method only and may be associated with false positive and/or false negative results. Results are not definitive without additional confirmatory testing by mass spectrometry. Fentanyl, 2 ng/mL Cutoff Negative Negative 10/06/2024 1:13 PM EDT [facility] Comment:This test has been d eveloped and its performance characteristics determined by [facility] which is certified under the [...] 10/06/2024 11:58 AM EDT Narrative [facility] - 10/06/2024 1:13 PM EDT CONFIRMATION TO FOLLOW us Bisi Hernandez DO URINE ORDERABLES Final Result [facility] [address] [place] [address], [facility] * Chloride, urine, random (10/06/2024 11:51 AM EDT) Chloride, Ur <15 mmol/L 10/06/2024 1:13 PM EDT [facility] Comment:Reference range not established for this test. Urine 10/06/2024 11:5 1 AM EDT 10/06/2024 11:57 AM EDT Bisi Hernandez DO URINE ORDERABLES Final Result Performing Organization Address [facility]/ZIP Co de Phone Number [facility] [address] * Potassium, urine, random (10/06/2024 11:51 AM EDT) Potassium Urine Random 49.0 mmol/L 10/06/2024 1:13 PM EDT [facility] Comment:Reference range not established for this test. Urine 10/06/2024 11:5 1 AM EDT 10/06/2024 11:57 AM EDT Bisi Hernandez DO URINE ORDERABLES Final Result Performing Organization Address [facility] Co de Phone Number [facility] [address] * Sodium, urine, random (10/06/2024 11:51 AM EDT) Sodium, Ur <10 mmol/L 10/06/2024 1:13 PM EDT [facility] Comment:Reference range not established for this test. Urine 10/06/2024 11:5 1 AM EDT 10/06/2024 11:57 AM EDT Bisi Hernandez DO URINE ORDERABLES Final Result Performing Organization Address [facility] Co de Phone Number [facility] [address] [facility]. [address] * Urinalysis w/Rfl to Microscopic (10/06/2024 11:51 AM EDT) Color, UA Yellow Yellow,Straw 10/06/2024 12:25 PM EDT [facility] Clarity, UA Clear Clear 10/06/2024 12:25 PM EDT [facility] Specific [place], UA 1.014 1.005 - 1.035 10/06/2024 12:25 PM EDT [facility] pH, UA 6.0 5.0 - 8.0 10/06/2024 12:25 PM EDT [facility] Protein, UA Negative Negative mg/dL 10/06/2024 12:25 PM EDT [facility] Glucose, UA Negative Negative mg/dL 10/06/2024 12:25 PM EDT [facility] Ketones, UA Negative Negative mg/dL 10/06/2024 12:25 PM EDT [facility] Bilirubin, UA Negative Negative 10/06/2024 12:25 PM EDT [facility] Blood, UA Negative Negative 10/06/2024 12:25 PM EDT [facility] Nitrite, UA Negative Negative 10/06/2024 12:25 PM EDT [facility] Urobilinogen, UA <2.0 0.2 - 1.9 mg/dL 10/06/2024 12:25 PM EDT [facility] Leukocyte Esterase, UA Negative Negative 10/06/2024 12:25 PM EDT [facility] Urine 10/06/2024 11:5 1 AM EDT 10/06/2024 11:57 AM EDT Narrative [facility] - 10/06/2024 12:25 PM EDT Microscopic testing is not performed when the dipstick is negative for blood, leukocyte, protein and nitrite. us Bisi Hernandez DO URINE ORDERABLES Final Result Performing Organization Address City/[facility] Co de Phone Number [facility] [address] * Lactic Acid, STAT (10/06/2024 7:38 AM EDT) Lactate 0.9 0.5 - 2.2 mmol/L 10/06/2024 8:05 AM EDT [facility] Plasma 10/06/2024 7:38 AM EDT 10/06/2024 7:42 AM EDT Chari Vanegas MD LAB BLOOD ORDERABLES Final Resul t [facility] [address] [place] [address], [facility] * (ABNORMAL) CBC, STAT (10/06/2024 7:37 AM EDT) WBC 5.6 3.8 - 10.8 10E3/uL 10/06/2024 8:22 AM EDT [facility] RBC 2.50(L) 4.20 - 5.80 10E6/uL 10/06/2024 8:22 AM EDT [facility] Hemoglobin 9.0(L) 13.2 - 17.1 g/dL 10/06/2024 8:22 AM EDT [facility] Hematocrit 25.3(L) 38.5 - 50.0 % 10/06/2024 8:22 AM EDT [facility] MCV 101.2(H) 80.0 - 100.0 fL 10/06/2024 8:22 AM EDT [facility] MCH 36.0(H) 27.0 - 33.0 pg 10/06/2024 8:22 AM EDT [facility] MCHC 35.6 32.0 - 36.0 g/dL 10/06/2024 8:22 AM EDT [facility] RDW 17.7(H) 11.0 - 15.0 % 10/06/2024 8:22 AM EDT [facility] Platelets 52(L) 140 - 400 10E3/uL 10/06/2024 8:22 AM EDT [facility] Comment: Specimen checked for clots. None detected. Slide Reviewed for PLT Clumps. None Seen. MPV 8.2 7.5 - 11.5 fL 10/06/2024 8:22 AM EDT [facility] Whole Blood 10/06/2024 7:37 AM EDT 10/06/2024 7:43 AM EDT Chari Vanegas MD LAB BLOOD ORDERABLES Final Resul t Performing Organization Address [facility]/ZIP Co de Phone Number [facility] [address] [place] [address], [facility] * (ABNORMAL) Comprehensive Metabolic Panel (10/06/2024 7:37 AM EDT) Sodium 129(L) 133 - 146 mmol/L 10/06/2024 8:16 AM T [facility] Potassium 4.4 3.5 - 5.3 mmol/L 10/06/2024 8:16 AM [facility] Chloride 100 98 - 110 mmol/L 10/06/2024 8:16 AM EDT [facility] CO2 18(L) 21 - 33 mmol/L 10/06/2024 8:16 AM [facility] Anion Gap 11 3 - 16 mmol/L 10/06/2024 8:16 AM [facility] BUN 62(H) 7 - 25 mg/dL 10/06/2024 8:16 AM [facility] Creatinine 3.40(H) 0.60 - 1.30 mg/dL 10/06/2024 8:16 AM [facility] Glucose 98 70 - 100 mg/dL 10/06/2024 8:16 AM [facility] Calcium 9.5 8.6 - 10.3 mg/dL 10/06/2024 8:16 AM [facility] Total Bilirubin 14.3(H) 0.0 - 1.5 mg/dL 10/06/2024 8:16 AM [facility] AST 57(H) 13 - 39 U/L 10/06/2024 8:16 AM [facility] ALT 29 7 - 52 U/L 10/06/2024 8:16 AM [facility] Alkaline Phosphatase 158(H) 36 - 125 U/L 10/06/2024 8:16 AM [facility] Total Protein 5.6(L) 6.4 - 8.9 g/dL 10/06/2024 8:16 AM [facility] Albumin 3.6 3.5 - 5.7 g/dL 10/06/2024 8:16 AM [facility] Osmolality, Calculated 286 278 - 305 mOsm/kg 10/06/2024 8:16 AM [facility] EGFR 22 10/06/2024 8:16 AM [...] BLOOD ORDERABLES Final Resul t [facility] [address] [id number], [facility] * (ABNORMAL) Venous Blood Gas, Line/Syringe, STAT (10/06/2024 7:37 AM EDT) PH-Line Draw 7.27(L) 7.32 - 7.42 10/06/2024 7:46 AM EDT [facility] PCO2-Line Draw 36(L) 41 - 51 mm Hg 10/06/2024 7:46 AM EDT [facility] PO2-Line Draw 44(H) 25 - 40 mm Hg 10/06/2024 7:46 AM EDT [facility] HCO3-Line Draw 17(L) 24 - 28 mmol/L 10/06/2024 7:46 AM EDT [facility] CO2 Content-Line Draw 18(L) 25 - 29 mmol/L 10/06/2024 7:46 AM EDT [facility] Base Excess-Line Draw -9.6(L) -2.0 - 3.0 mmol/L 10/06/2024 7:46 AM EDT [facility] %HBO2-Line Draw 69.8 40.0 - 70.0 % 10/06/2024 7:46 AM EDT [facility] Carboxyhgb-Ludivina e Draw 0.7 % 10/06/2024 7:46 AM EDT [facility] Comment: CARBOXYHEMOGLOBIN (CO) REFERENCE RANGES: Non-Smokers: <2 % Smokers: <8 % TOXIC: >20 % Methemoglobin- Line Draw 0.3 0.0 - 1.5 % 10/06/2024 7:46 AM EDT [facility] Reduced Hemoglobin-Ludivina e Draw 29.2(H) 0.0 - 5.0 % 10/06/2024 7:46 AM EDT [facility] Venous, Line Draw 10/06/2024 7:37 AM EDT 10/06/2024 7:43 AM EDT Chari Vanegas MD LAB BLOOD ORDERABLES Final Resul t [facility] [address] * (ABNORMAL) Venous Blood Gas, Line/Syringe, STAT (10/06/2024 4:03 AM EDT) PH-Line Draw 7.21(L) 7.32 - 7.42 10/06/2024 4:16 AM EDT [facility] PCO2-Line Draw 41 41 - 51 mm Hg 10/06/2024 4:16 AM EDT [facility] PO2-Line Draw 32 25 - 40 mm Hg 10/06/2024 4:16 AM EDT [facility] HCO3-Line Draw 16(L) 24 - 28 mmol/L 10/06/2024 4:16 AM EDT [facility] CO2 Content-Line Draw 18(L) 25 - 29 mmol/L 10/06/2024 4:16 AM EDT [facility] Base Excess-Line Draw -10.8(L) -2.0 - 3.0 mmol/L 10/06/2024 4:16 AM EDT [facility] %HBO2-Line Draw 47.5 40.0 - 70.0 % 10/06/2024 4:16 AM EDT [facility] Carboxyhgb-Ludivina e Draw 2.0 % 10/06/2024 4:16 AM EDT [facility] Comment: CARBOXYHEMOGLOBIN (CO) REFERENCE RANGES: Non-Smokers: <2 % Smokers: <8 % TOXIC: >20 % Methemoglobin- Line Draw 0.7 0.0 - 1.5 % 10/06/2024 4:16 AM EDT [facility] Reduced Hemoglobin-Ludivina e Draw 49.8(H) 0.0 - 5.0 % 10/06/2024 4:16 AM EDT [facility] Venous, Line Draw 10/06/2024 4:03 AM EDT 10/06/2024 4:12 AM EDT [email or web address] LAB BLOOD ORDERABLES Final Resul t Performing Organization Address [facility] Co de Phone Number [facility] [address] [facility] * (ABNORMAL) Protime-INR (10/06/2024 4:01 AM EDT) Protime 21.3(H) 12.1 - 15.1 seconds 10/06/2024 4:40 AM EDT [facility] INR 1.8(H) 0.9 - 1.1 10/06/2024 4:40 AM EDT [facility] Comment: RECOMMENDED THERAPEUTIC RANGES USING INR : Stable oral anticoagulant therapy: 2.0 - 3.0 Mechanical prosthetic heart valve: 2.5 - 3.5 Recurrent acute myocardial infarction: 2.5 - 3.5 Plasma 10/06/2024 4:01 AM EDT 10/06/2024 4:11 AM EDT [email or web address] LAB BLOOD ORDERABLES Final Resul t Performing Organization Address [facility] Co de Phone Number [facility] [address] [facility] * (ABNORMAL) Hepatic Function Panel, AM (10/06/2024 4:01 AM EDT) Total Bilirubin 14.7(H) 0.0 - 1.5 mg/dL 10/06/2024 4:57 AM EDT [facility] Bilirubin, Direct 7.08(H) 0.00 - 0.40 mg/dL 10/06/2024 4:57 AM EDT [facility] AST 60(H) 13 - 39 U/L 10/06/2024 4:57 AM EDT [facility] ALT 31 7 - 52 U/L 10/06/2024 4:57 AM EDT [facility] Alkaline Phosphatase 162(H) 36 - 125 U/L 10/06/2024 4:57 AM EDT [facility] Total Protein 5.3(L) 6.4 - 8.9 g/dL 10/06/2024 4:57 AM EDT [facility] Albumin 3.4(L) 3.5 - 5.7 g/dL 10/06/2024 4:57 AM EDT [facility] Bilirubin, Indirect 7.62(H) 0.00 - 1.10 mg/dL 10/06/2024 4:57 AM EDT [facility] Plasma 10/06/2024 4:01 AM EDT 10/06/2024 4:22 AM EDT [email or web address] LAB BLOOD ORDERABLES Final Resul t Performing Organization Address City/[facility]/ZIP Co de Phone Number [facility] [address] * Magnesium (10/06/2024 4:01 AM EDT) Magnesium 1.8 1.5 - 2.5 mg/dL 10/06/2024 4:57 AM EDT [facility] Plasma 10/06/2024 4:01 AM EDT 10/06/2024 4:22 AM EDT [email or web address] LAB BLOOD ORDERABLES Final Resul t [facility] [address] * (ABNORMAL) Renal Function Panel w/EGFR (10/06/2024 4:01 AM EDT) Sodium 129(L) 133 - 146 mmol/L 10/06/2024 4:57 AM EDT [facility] Potassium 4.7 3.5 - 5.3 mmol/L 10/06/2024 4:57 AM EDT [facility] Chloride 100 98 - 110 mmol/L 10/06/2024 4:57 AM EDT [facility] CO2 16(L) 21 - 33 mmol/L 10/06/2024 4:57 AM EDT [facility] Anion Gap 13 3 - 16 mmol/L 10/06/2024 4:57 AM EDT [facility] BUN 61(H) 7 - 25 mg/dL 10/06/2024 4:57 AM EDT [facility] Creatinine 3.49(H) 0.60 - 1.30 mg/dL 10/06/2024 4:57 AM EDT [facility] Glucose 104(H) 70 - 100 mg/dL 10/06/2024 4:57 AM EDT [facility] Calcium 9.2 8.6 - 10.3 mg/dL 10/06/2024 4:57 AM EDT [facility] Phosphorus 5.3(H) 2.1 - 4.7 mg/dL 10/06/2024 4:57 AM EDT [facility] Albumin 3.4(L) 3.5 - 5.7 g/dL 10/06/2024 4:57 AM EDT [facility] Osmolality, Calculated 286 278 - 305 mOsm/kg 10/06/2024 4:57 [facility] EGFR 22 10/06/2024 4:57 AM [facility] Comment:As of 2021, the estimated [...] 4:01 AM EDT 10/06/2024 4:22 AM EDT [email or web address] LAB BLOOD ORDERABLES Final Resul t [facility] [address] [place] [address], [facility] * (ABNORMAL) CBC (10/06/2024 4:01 AM EDT) WBC 7.6 3.8 - 10.8 10E3/uL 10/06/2024 5:16 AM EDT [facility] RBC 2.77(L) 4.20 - 5.80 10E6/uL 10/06/2024 5:16 AM EDT [facility] Hemoglobin 10.1(L) 13.2 - 17.1 g/dL 10/06/2024 5:16 AM EDT [facility] Hematocrit 28.4(L) 38.5 - 50.0 % 10/06/2024 5:16 AM EDT [facility] MCV 102.4(H) 80.0 - 100.0 fL 10/06/2024 5:16 AM EDT [facility] MCH 36.4(H) 27.0 - 33.0 pg 10/06/2024 5:16 AM EDT [facility] MCHC 35.5 32.0 - 36.0 g/dL 10/06/2024 5:16 AM EDT [facility] RDW 18.0(H) 11.0 - 15.0 % 10/06/2024 5:16 AM EDT [facility] Platelets 53(L) 140 - 400 10E3/uL 10/06/2024 5:16 AM EDT [facility] Comment:Specimen checked for clots. None detected. MPV 8.4 7.5 - 11.5 fL 10/06/2024 5:16 AM EDT [facility] Whole Blood 10/06/2024 4:01 AM EDT 10/06/2024 4:11 AM EDT [email or web address] LAB BLOOD ORDERABLES Final Resul t Performing Organization Address City/[facility]/ZIP Co de Phone Number [facility] [address] * Hepatitis C Antibody (10/06/2024 4:01 AM EDT) HCV Ab Nonreactive Nonreactive 10/06/2024 5:12 AM EDT [facility] Comment:Health Department no tified in accordance with reportable infectious disease guidelines. Serum 10/06/2024 4:01 AM EDT 10/06/2024 4:11 AM EDT Narrative [facility] - 10/06/2024 5:12 AM EDT Antibodies to HCV not detected; does not exclude the possibility of exposure to HCV. [email or web address] LAB BLOOD ORDERABLES Final Resul t Performing Organization Address [facility] Co de Phone Number [facility] [address] * (ABNORMAL) Hepatitis B Surface Antibody, Quantitati (10/06/2024 4:01 AM EDT) Hep B S Ab Reactive( A) Nonreactive 10/06/2024 5:16 AM EDT [facility] HBSAB NUMBER 11.50(H) 0.00 - 7.99 mIU/mL 10/06/2024 5:16 AM EDT [facility] Serum 10/06/2024 4:01 AM EDT 10/06/2024 4:11 AM EDT Narrative [facility] - 10/06/2024 5:16 AM EDT Individual is considered immune to HBV infection. [email or web address] LAB BLOOD ORDERABLES Final Resul t [facility] [address] * Hepatitis B surface antigen (10/06/2024 4:01 AM EDT) Hep B Surface Ag Nonreactive Nonreactive 10/06/2024 5:07 AM EDT [facility] Comment:Health Department no tified in accordance with reportable infectious disease guidelines. Serum 10/06/2024 4:01 AM EDT 10/06/2024 4:11 AM EDT [facility] - 10/06/2024 5:07 AM EDT Specimen is considered negative for HBsAg. [email or web address] LAB BLOOD ORDERABLES Final Resul t Performing Organization Address [facility] Co de Phone Number [facility] [address] [place] [address]. [address] * Hepatitis A Antibody Total (10/06/2024 4:01 AM EDT) Anti-HAV Total (IgG + IgM) Nonreactive 10/06/2024 5:08 AM EDT [facility] Serum 10/06/2024 4:01 AM EDT 10/06/2024 4:11 AM EDT [facility] - 10/06/2024 5:08 AM EDT HAV antibodies not detected [email or web address] LAB BLOOD ORDERABLES Final Resul t Performing Organization Address [facility] de Phone Number [facility] [address] [place] [address]. [address] * Hepatitis A IgM (10/06/2024 4:01 AM EDT) Hep A IgM Nonreactive Nonreactive 10/06/2024 5:02 AM EDT [facility] Serum 10/06/2024 4:01 AM EDT 10/06/2024 4:11 AM EDT [facility] - 10/06/2024 5:02 AM EDT IgM anti-HAV not detected. Does not exclude the possibility of exposure to or infection with HAV. Levels of IgM anti-HAV may be below the cut-off in early infection. [email or web address] LAB BLOOD ORDERABLES Final Resul t Performing Organization Address [facility] Co de Phone Number [facility] [address] [place], [place] [address]ue [facility]. [address] * (ABNORMAL) Salicylate Level (10/06/2024 4:01 AM EDT) [facility] Salicylate Lvl <3(L) 10 - 30 mg/dL 10/06/2024 4:58 AM EDT [facility] Serum 10/06/2024 4:01 AM EDT 10/06/2024 4:22 AM EDT [email or web address] LAB BLOOD ORDERABLES Final Resul t [facility] [address] [facility] * AFP Tumor Marker (10/06/2024 4:01 AM EDT) [facility] AFP-Tumor Marker 2.6 0.0 - 9.0 ng/mL 10/06/2024 4:55 AM EDT [facility] Serum 10/06/2024 4:01 AM EDT 10/06/2024 4:22 AM EDT Narrative [facility] - 10/06/2024 4:55 AM EDT The testing method for AFP is a chemiluminescent immunoassay manufactured by [employer] Concentrations of AFP obtained by different assay methods or kits may vary and cannot be used interchangeably. AFP results cannot be interpreted as absolute evidence of the presence or absence of malignant disease. [email or web address] LAB BLOOD ORDERABLES Final Resul t [facility] [address] [facility]. [address] * Upper Respiratory Viral/Bacterial Panel-TELEVISION PRODUCER Only (10/06/2024 3:12 AM EDT) [facility] Adenovirus Not Detected Not Detected 10/06/2024 11:38 PM EDT [facility] Coronavirus (229E,HKU1,NL63,OC 43) Not Detected Not Detected 10/06/2024 11:38 PM EDT [facility] SARS-CoV-2 Not Detected Not Detected 10/06/2024 11:38 PM EDT [facility] Human Metapneumovirus Not Detected Not Detected 10/06/2024 11:38 PM EDT [facility] Human Rhinovirus/Enterov irus Not Detected Not Detected 10/06/2024 11:38 PM EDT [facility] Influenza A Not Detected Not Detected 10/06/2024 11:38 PM EDT [facility] Influenza A H1 Not Detected Not Detected 10/06/2024 11:38 PM EDT [facility] Influenza A/H1-2009 Not Detected Not Detected 10/06/2024 11:38 PM EDT [facility] Influenza A H3 Not Detected Not Detected 10/06/2024 11:38 PM EDT [facility] Influenza B Not Detected Not Detected 10/06/2024 11:38 PM EDT [facility] Parainfluenza 1 Not Detected Not Detected 10/06/2024 11:38 PM EDT [facility] Parainfluenza 2 Not Detected Not Detected 10/06/2024 11:38 PM EDT [facility] Parainfluenza 3 Not Detected Not Detected 10/06/2024 11:38 PM EDT [facility] Parainfluenza 4 Not Detected Not Detected 10/06/2024 11:38 PM EDT [facility] Resp. Syncycial Virus A Not Detected Not Detected 10/06/2024 11:38 PM EDT [facility] Resp. Syncycial Virus B Not Detected Not Detected 10/06/2024 11:38 PM EDT [facility] Chlamydia pneumoniae Not Detected Not Detected 10/06/2024 11:38 PM EDT [facility] Mycoplasma pneumoniae Not Detected Not Detected 10/06/2024 11:38 PM EDT [facility] Comment: The Respiratory Viral-Bacterial Panel [...] have been sent to the [facility] in accordance with state requirements. For a fact sheet for healthcare providers, see https://www.fda.gov/media/743289/download. For a fact sheet for patients, see https://www.fda.gov/media/858068/download. Nasopharyngeal Swab NASOPHARYNGEAL SWAB / Unknown 10/06/2024 3:12 AM EDT 10/06/2024 5:41 PM EDT Comment:TELEVISION PRODUCER Bisi Hernandez DO BODY FLUIDS AND STOOLS ORDERABLE S Final Result [facility] [address] * X-ray Portable Chest (10/06/2024 1:16 [...] Cutoff: 10 ng/mL 10/10/2024 3:11 AM EDT [facility] Comment: Phosphatidylethanol (PEth) homologues result interpretation [...] PEth Interpretation Negative. 10/10 3:11 AM EDT [facility] Comment: ADDITIONAL INFORMATION This report is intended for use in clinical monitoring and management of patients. It is not intended for use in employment-related testing. This test was developed and its performance characteristics determined by [facility] in a manner consistent with CLIA requirements. This test has not been cleared or approved by the U.S. Food and Drug Administration. Test Performed by: [facility] [address] [place] [address] [employer]: Kathy Ortiz Ph.D.; CLIA# [id number] Whole Blood 10/06/2024 1:04 AM EDT 10/10/2024 3:11 AM EDT [facility] LAB BLOOD ORDERABLES Final Resul t Performing Organization Address [facility] de Phone Number [facility] [address] [place] [address]. [address] * (ABNORMAL) Acetaminophen Level (10/06/2024 1:04 AM EDT) Acetaminophen Level <10(L) 10 - 30 ug/mL 10/06/2024 2:08 AM EDT [facility] Serum 10/06/2024 1:04 AM EDT 10/06/2024 1:30 AM EDT Result [facility] [email or web address] LAB BLOOD ORDERABLES Final Resul t Performing Organization Address [facility] de Phone Number [facility] [address] [place] [address]. [address] * Ethanol, Serum (10/06/2024 1:04 AM EDT) Ethanol <10 0 - 10 mg/dL 10/06/2024 2:08 AM EDT [facility] Serum 10/06/2024 1:04 AM EDT 10/06/2024 1:30 AM EDT [email or web address] LAB BLOOD ORDERABLES Final Resul t Performing Organization Address [facility] de Phone Number [facility] [address] * #2 Blood culture-Peripheral site 2 (10/06/2024 1:04 AM EDT) Culture Result No Growth After 5 Days [facility] Blood BLOOD SPECIMEN / Unknown 10/06/2024 1:04 AM EDT 10/06/2024 4:57 AM EDT Narrative [facility] - 10/11/2024 5:05 AM EDT Suboptimal volume of blood received. Interpret results with caution. Bisi Akana maría DOZIER MICROBIOLOGY - GENERAL ORDERABLE S Final Result Performing Organization Address City/[facility] Co de Phone Number [facility] [address] [facility]. [address] * #1 Blood culture-Peripheral site 1 (10/06/2024 1:04 AM EDT) Culture Result No Growth After 5 Days [facility] Blood BLOOD SPECIMEN / Unknown 10/06/2024 1:04 AM EDT 10/06/2024 4:57 AM EDT Narrative [facility] - 10/11/2024 5:01 AM EDT Suboptimal volume of blood received. Interpret results with caution. Bisi Hernandez DO MICROBIOLOGY - GENERAL ORDERABLE S Final Result Performing Organization Address City/[facility]/ZIP Co de Phone Number [facility] [address] * Ammonia (10/06/2024 1:04 AM EDT) Ammonia 77 27 - 90 ug/dL 10/06/2024 2:00 AM EDT [facility] Plasma 10/06/2024 1:04 AM EDT 10/06/2024 1:30 AM EDT Bisi Hernandez DO LAB BLOOD ORDERABLES Final Resul t [facility] [address] [facility]. [address] * Thyroid Function [place] (10/06/2024 1:04 AM EDT) TSH 0.84 0.45 - 4.12 uIU/mL 10/06/2024 2:20 AM EDT [facility] Serum 10/06/2024 1:04 AM EDT 10/06/2024 1:39 AM EDT us [email or web address] LAB BLOOD ORDERABLES Final Resul t Performing Organization Address [facility]/ZIP Co de Phone Number [facility] [address] [facility] * (ABNORMAL) Protime-INR (10/06/2024 1:04 AM EDT) Protime 22.8(H) 12.1 - 15.1 seconds 10/06/2024 1:48 AM EDT [facility] INR 1.9(H) 0.9 - 1.1 10/06/2024 1:48 AM EDT [facility] Comment: RECOMMENDED THERAPEUTIC RANGES USING INR : Stable oral anticoagulant therapy: 2.0 - 3.0 Mechanical prosthetic heart valve: 2.5 - 3.5 Recurrent acute myocardial infarction: 2.5 - 3.5 Plasma 10/06/2024 1:04 AM EDT 10/06/2024 1:30 AM EDT us [facility] DO LAB BLOOD ORDERABLES Final Resul t Performing Organization Address City/[facility]/ZIP Co de Phone Number [facility] [address] [facility]. [address] * Lactic Acid, STAT (10/06/2024 1:04 AM EDT) Lactate 1.2 0.5 - 2.2 mmol/L 10/06/2024 1:59 AM EDT [facility] Plasma 10/06/2024 1:04 AM EDT 10/06/2024 1:30 AM EDT us [facility] DO LAB BLOOD ORDERABLES Final Resul t [facility] [address] [place] [address], [facility] * (ABNORMAL) CBC, STAT (10/06/2024 1:04 AM EDT) WBC 7.9 3.8 - 10.8 10E3/uL 10/06/2024 2:36 AM EDT [facility] RBC 2.76(L) 4.20 - 5.80 10E6/uL 10/06/2024 2:36 AM EDT [facility] Hemoglobin 9.9(L) 13.2 - 17.1 g/dL 10/06/2024 2:36 AM EDT [facility] Hematocrit 28.0(L) 38.5 - 50.0 % 10/06/2024 2:36 AM EDT [facility] MCV 101.5(H) 80.0 - 100.0 fL 10/06/2024 2:36 AM EDT [facility] MCH 35.7(H) 27.0 - 33.0 pg 10/06/2024 2:36 AM EDT [facility] MCHC 35.2 32.0 - 36.0 g/dL 10/06/2024 2:36 AM EDT [facility] RDW 17.9(H) 11.0 - 15.0 % 10/06/2024 2:36 AM EDT [facility] Platelets 58(L) 140 - 400 10E3/uL 10/06/2024 2:36 AM EDT [facility] Comment: Specimen checked for clots. None detected. Slide Reviewed for PLT Clumps. None Seen. MPV 8.2 7.5 - 11.5 fL 10/06/2024 2:36 AM EDT [facility] Whole Blood 10/06/2024 1:04 AM EDT 10/06/2024 1:31 AM EDT us [facility] DO LAB BLOOD ORDERABLES Final Resul t [facility] [address] [place] [address], [facility] * (ABNORMAL) Comprehensive Metabolic Panel (10/06/2024 1:04 AM EDT) Sodium 127(L) 133 - 146 mmol/L 10/06/2024 2:05 AM EDT [facility] Potassium 4.5 3.5 - 5.3 mmol/L 10/06/2024 2:05 AM EDT [facility] Chloride 99 98 - 110 mmol/L 10/06/2024 2:05 AM EDT [facility] CO2 18(L) 21 - 33 mmol/L 10/06/2024 2:05 AM EDT [facility] Anion Gap 10 3 - 16 mmol/L 10/06/2024 2:05 AM EDT [facility] BUN 59(H) 7 - 25 mg/dL 10/06/2024 2:05 AM EDT [facility] Creatinine 3.54(H) 0.60 - 1.30 mg/dL 10/06/2024 2:05 AM EDT [facility] Glucose 116(H) 70 - 100 mg/dL 10/06/2024 2:05 AM EDT [facility] Calcium 9.0 8.6 - 10.3 mg/dL 10/06/2024 2:05 AM EDT [facility] Total Bilirubin 14.8(H) 0.0 - 1.5 mg/dL 10/06/2024 2:05 AM EDT [facility] AST 61(H) 13 - 39 U/L 10/06/2024 2:05 AM EDT [facility] ALT 33 7 - 52 U/L 10/06/2024 2:05 AM EDT [facility] Alkaline Phosphatase 174(H) 36 - 125 U/L 10/06/2024 2:05 AM EDT [facility] Total Protein 5.2(L) 6.4 - 8.9 g/dL 10/06/2024 2:05 AM EDT [facility] Albumin 3.3(L) 3.5 - 5.7 g/dL 10/06/2024 2:05 AM EDT [facility] Osmolality, Calculated 282 278 - 305 mOsm/kg 10/06/2024 2:05 AM EDT [facility] EGFR 21 10/06/2024 2:05 AM EDT [facility] Comment:As of 2021, the estimated [...] BLOOD ORDERABLES Final Resul t [facility] [address] [place] [address], [facility] documented in this encounter Visit Diagnoses Not on filedocumented in this encounter Administered Medications Active Administered [...] Oral, Every 24 hours, First dose on 10/12/24 at 0900 Given 10/17/2024 8:50 AM EDT [...] MAR Action Action Date Dose Rate Site fentaNYL (SUBLIMAZE) injection Intra-op PRN, Starting on Sun10/14/24 at 1317, Intra-procedure(Invasive Cardiology) Given 10/14/2024 1:26 PM EDT 25 mcg Given 10/14/2024 1:21 PM EDT 12.5 mcg Given 10/14/2024 1:17 PM EDT 25 mcg midazolam (PF) (VERSED) injection Intra-op PRN, Starting on Sun10/14/24 at 1317, Intra-procedure(Invasive Cardiology) Given 10/14/2024 1:26 PM EDT 0.5 mg Given 10/14/2024 1:21 PM EDT 1 mg Given 10/14/2024 1:17 PM EDT 0.5 mg nitroGLYCERIN in D5W injection - CORK TILE FLOOR LAYER ONLY Intra-op PRN, Starting on Sun10/14/24 at 1321, Intra-procedure(Invasive Cardiology) Given 10/14/2024 1:45 PM EDT 200 mcg Right Arm Given 10/14/2024 1:38 PM EDT 200 mcg Ri ght Arm Given 10/14/2024 1:21 PM EDT 200 mcg Ri ght Arm OMNIPAQUE (iohexol) 350 mg iodine/mL Intra-op PRN, Starting on Sun10/14/24 at 1407, Intra-procedure(Invasive Cardiology) Given 10/14/2024 2:07 PM EDT 35 mLs phenylephrine (HUNG-SYNEPHRINE) injection Intra-op PRN, Starting on Sun10/14/24 at 1340, Intra-procedure(Invasive Cardiology) Given 10/14/2024 1:40 PM EDT 200 mcg verapamiL (ISOPTIN) injection Intra-op PRN, Starting on Sun10/14/24 at 1319, Intra-procedure(Invasive Cardiology) Given 10/14/2024 1:45 PM EDT 2.5 mg Right Arm Given 10/14/2024 1:37 PM EDT 2.5 mg Ri ght Arm Given 10/14/2024 1:21 PM EDT 2.5 mg Ri ght Arm documented in this encounter Active and Recently [...] Wolff RN)2022 (Not Given - Provider: Soco Milton, RN - Reason: Order parameters not met) 0851 (Not Given - Provider: Suzette Arciniega, ЮЛИЯ - Reason: Patient/family refused)1300 (Due)2100 (Due) levothyroxine [...] Soco Milton, ЮЛИЯ - Reason: Patient/family refused) 1700 (Due) methocarbamoL [...] ЮЛИЯ) 0850 (Given - Provider: Suzette Arciniega, RN)1300 (Due)2100 (Due) midodrine (PROAMATINE) tablet 10 mg [...] RN) 0850 (Given - Provider: Suzette Arciniega RN)2100 (Due) sertraline (ZOLOFT) tablet 50 mg (CANCELED) [...] - Provider: Suzette Arciniega RN)1300 (Due)2100 (Due) thiamine HCl (VITAMIN B-1) [...] RN) 0833 (Given - Provider: Anu Wolff RN)202 (Given - Provider: Soco Milton RN) 0849 (Given - Provider: Suzette Arciniega RN)2100 (Due) zinc sulfate (ZINCATE) capsule 220 mg [...] 1205 2108 (Given - Provider: Chelsy Bush, ЮЛИЯ) 0156 (Given - Provider: Chelsy Bush RN)0635 [...] documented as of this encounter Care Teams Science Education Professor Relationship Specialty Start Date End Date Enedina Mcguire NP [address] [place] [address] PCP - General Internal Medicine 10/05/24 documented as of this encounter
--- NOTE | 2024-10-17 11:50 | US_ITS ---
FINAL REPORT CLINICAL HISTORY: ASCITES -- paracentesis -- shayy espino -- 4350ml FINDINGS: ULTRASOUND-GUIDED PARACENTESIS HISTORY: Ascites ATTENDING PHYSICIAN: Dr. Wesley PHYSICIAN STRIPPER [employer]PAQUER APPRENTICE: Shayy Salas PA-C FINDINGS: After informed consent was obtained and timeout procedure performed, fluid was localized in the right lower quadrant under ultrasound guidance and marked on the skin appropriately. The patient was then prepped and draped in the usual sterile fashion and the skin was anesthetized with 1% Lidocaine. An ultrasound guided paracentesis was then performed using a Turkel needle. Approximately 4.35 liters of clear yellow fluid was removed. A portion of the fluid was sent to lab. The patient tolerated the procedure well and there were no immediate complications. IMPRESSION: Ultrasound guided right lower quadrant paracentesis as discussed above. 4.35 liters of clear yellow fluid was removed. Reviewed, Interpreted and Dictated by Funmilayo Wesley MD Transcribed by NAA Thakur Authenticated and [facility]
--- OUTSIDE RECORDS SUMMARY | 2024-10-17 11:50 | XMS_ITS | Encounter Summary ---
Author Organization Healthcare Address [address] [id number] Care Team Providers Care Resource Development Manager Name Role Phone Jony Conde MD Primary Care Provider [phone] Lj Tapia CHIEF JAILER Unavailable [phone] Enedina Mcguire CHIEF JAILER Primary Care Provider + Nuria Fall INSTITUTIONAL RESEARCH DIRECTOR Unavailable Unavaila ble Encounter Details Date Type Department Care Team (Late st Contact Info) Description 07/04/2022 Orders Only External Location [address] [place] [address] Presley Monte sDe Oca MD [address] [place] [address] Social History Tobacco Use Types Packs/Day Years Used Date Smoking Tobacco: Never Assessed Sex and Gender Information Value Date Recorded Sex Assigned at Male 07/08/2024 5:21 PM EST Legal Sex Male 8:30 PM EDT Gender Identity Not on file Sexual Orientation Not on file documented as of this encounter Plan of Treatment Upcoming Encounters Date Type Department Care Team (Late Contact Info) Description 12/01/2024 2:20 PM EDT Office Visit Professional [facility] Nephrology, Bone & Mineral Metabolism [address] [facility], [address] [place] [address] Yovanny Curran MD [address] [facility] [address] [place] [address] 01/08/2025 3:20 PM EDT Office Visit [facility] [place] [address] [facility], [address] [place] [address] Vincent Braga MD [address] [place] [address] documented as of this encounter Procedures Procedure Name Priority Date/Time Associated Diagnosis Comments US ABDOMEN FOCUSED REGION 07/04/2022 11:48 AM EST documented in this encounter Results * US Abdomen Focused Region (07/04/2022 11:48 AM EST) Anatomical Region Laterality Modality Abdomen Ultrasound 07/04/2022 11:4 8 AM EST us Presley Montes De Oca MD IMG US PROCEDURES Final Result documented in this encounter Visit Diagnoses Not on filedocumented in this encounter Care Teams Resource Development Manager Relationship Specialty Start Date End Date Jony Conde MD [address] [place] [address] [address] [place] [address] PCP - General 07/18/22 12/03/22 Enedina Mcguire APRN [address] [place], [place] [id number] PCP - General 12/04/22 Lj Tapia APRN [address] [place] [address] Referring Physician Gastroenterology 07/18/22 Nuria Fall LPN [facility] TCM Nurse 07/24/24 08/23/24 documented as of this encounter
--- OUTSIDE RECORDS SUMMARY | 2024-10-17 11:50 | XMS_ITS | Encounter Summary ---
Author Organization Healthcare Address [address] [place] [address] Care Team Providers Care Rural Mail Contractor Name Role Phone Jony Conde MD Primary Care Provider [phone] Lj Tapia BRUSH FILLER HAND Unavailable [phone] Enedina Mcguire BRUSH FILLER HAND Primary Care Provider + Nuria Fall CLUB WAITER/WAITRESS Unavailable Unavaila ble Encounter Details Date Type Department Care Team (Late Contact Info) Description 07/02/2022 Orders Only External Location [address] [place] [id number] Provider, External Social History Tobacco Use Types Packs/Day Years [...] Description 12/01/2024 2:20 PM EDT Office Visit [facility] Nephrology, Bone & Mineral Metabolism [address] , [address] [place] [address] Yovanny Curran MD [address] [place] [address] 01/08/2025 3:20 PM EDT Office Visit [facility] [place] [address] , [address] [place] [address] Vincent Braga MD [address] [place] [address] documented as of this encounter Procedures Procedure Name Priority Date/Time Associated Diagnosis Comments CT ABDOMEN PELVIS WO IV CONTRAST 07/02/2022 3:38 PM EST documented in this encounter Results * CT Abdomen Pelvis wo IV Contrast (07/02/2022 3:38 PM EST) Anatomical Region Laterality Modality Abdomen, Pelvis Computed Tomogra phy 07/02/2022 3:38 PM EST us External Provider IMG CT PROCEDURES Final Result documented in this encounter Visit Diagnoses Not on filedocumented in this encounter Care Teams Rural Mail Contractor Relationship Specialty Start Date End Date Jony Conde MD [address] [place] [address] [address] [place] [address] PCP - General 07/18/22 12/03/22 Enedina Mcguire APRN [address] [place] [address] PCP - General 12/04/22 Lj Tapia APRN [address] [place] [address] Referring Physician Gastroenterology 07/18/22 Nuria Fall LPN [facility] TCM Nurse 07/24/24 08/23/24 documented as of this encounter
--- OUTSIDE RECORDS SUMMARY | 2024-10-17 11:50 | XMS_ITS | Encounter Summary ---
Author Organization Healthcare Address [address] [id number] Care Team Providers Care Liquid Loader Name Role Phone Jony Conde MD Primary Care Provider [phone] Lj Tapia INTERNAL AUDITOR Unavailable [phone] Enedina Mcguire INTERNAL AUDITOR Primary Care Provider + Nuria Fall ACCOUNT DEVELOPMENT MANAGER Unavailable Unavaila ble Encounter Details Date Type Department Care Team (Late st Contact Info) Description 07/04/2022 Orders Only External Location [address] [place] [address] Presley Montes De Oca MD [address] [place] [address] Social History Tobacco Use Types Packs/Day Years [...] 12/01/2024 2:20 PM EDT Office Visit Professional [facility] Nephrology, Bone & Mineral Metabolism [address] [facility], [address] [place] [address] Yovanny Curran MD [address] [facility] [address] [place] [address] 01/08/2025 3:20 PM EDT Office Visit [facility] [place] [address] [facility], [address] [place] [address] Vincent Braga MD [address] [place] [address] documented as of this encounter Procedures Procedure Name Priority Date/Time Associated Diagnosis Comments US RENAL COMPLETE 07/04/2022 12:00 PM EST documented in this encounter Results * US Renal Complete (07/04/2022 12:00 PM EST) Anatomical Region Laterality Modality Kidney Ultrasound 07/04/2022 12:0 0 PM EST us Presley Montes De Oca MD IMG US PROCEDURES Final Result documented in this encounter Visit Diagnoses Not on filedocumented in this encounter Care Teams Liquid Loader Relationship Specialty Start Date End Date Jony Conde MD [address] [place] [address] [address] [place] [address] PCP - General 07/18/22 12/03/22 Enedina Mcguire APRN [address] [place] [address] PCP - General 12/04/22 Lj Tapia APRN [address] [place] [address] Referring Physician Gastroenterology 07/18/22 Nuria Fall LPN [facility] TCM Nurse 07/24/24 08/23/24 documented as of this encounter
--- OUTSIDE RECORDS SUMMARY | 2024-10-17 11:50 | XMS_ITS ---
Author Organization [facility] Address [address] [place] [address] Care Team Providers Care Cook Candy Name Role Phone Lj Tapia APRN Unavailable Enedina Mcguire APRN Primary Care Provider + Transitional Care Management Status:Closed (Closed) Start date:07/24/2024 Enrollment date:07/24/2024 Enrollment reason:Identified using hospital discharge data End date:08/23/2024 Close reason:Patient graduated Overview This episode type is for outpatient care managers enrolling patients in the [facility] Transitional Care Management program. Continued Care and Services Coordination
--- OUTSIDE RECORDS SUMMARY | 2024-10-17 11:50 | XMS_ITS | Encounter Summary ---
Author Organization Healthcare Address [address] [id number] Care Team Providers Care Transcribing Operator Head Name Role Phone Jony Conde MD Primary Care Provider [phone] Lj Tapia PARTITION SETTER Unavailable [phone] Enedina Mcguire PARTITION SETTER Primary Care Provider + Nuria Fall CONDUCTOR/BRAKEMAN Unavailable Unavaila ble Encounter Details Date Type Department Care Team (Late st Contact Info) Description 07/03/2022 Orders Only External Location [address] [place] [address] Presley Montes De Oca MD [address] [place] [address] Social History Tobacco Use Types Packs/Day Years [...] 12/01/2024 2:20 PM EDT Office Visit Professional [facility] Nephrology, Bone & Mineral Metabolism [address] [facility], [address] [place] [address] Yovanny Curran MD [address] [facility] [address] [place] [address] 01/08/2025 3:20 PM EDT Office Visit [facility] [place] [address] [facility], [address] [place] [address] Vincent Braga MD [address] [place] [address] documented as of this encounter Procedures Procedure Name Priority Date/Time Associated Diagnosis Comments US CHEST 07/03/2022 3:40 PM EST documented in this encounter Results * US Chest (07/03/2022 3:40 PM EST) Anatomical Region Laterality Modality Chest Ultrasound 07/03/2022 3:40 PM EST us Presley Montes De Oca MD IMG US PROCEDURES Final Result documented in this encounter Visit Diagnoses Not on filedocumented in this encounter Care Teams Transcribing Operator Head Relationship Specialty Start Date End Date Jony Conde MD [address] [place] [address] [address] [place] [address] PCP - General 07/18/22 12/03/22 Enedina Mcguire APRN [address] [place] [address] PCP - General 12/04/22 Lj Tapia APRN [address] [place] [address] Referring Physician Gastroenterology 07/18/[address] [facility] TCM Nurse 07/24/24 08/23/24 documented as of this encounter
--- OUTSIDE RECORDS SUMMARY | 2024-10-17 11:50 | XMS_ITS | Encounter Summary ---
Author Organization Healthcare Address [address] [place] [address] Care Team Providers Care Plastic Maker Name Role Phone Lj Tapia PULP BEATER Unavailable [phone] Enedina Mcguire PULP BEATER Primary Care Provider + Nuria Fall EDM OPERATOR Unavailable Unavaila ble Encounter Details Date Type Department Care Team (Late st Contact Info) Description 07/23/2024 Telephone [facility] [address] [place] [address] Dennis Velázquez, [place] [address] Social History Tobacco Use Types Packs/Day Years Used Date Smoking Tobacco: Every Day Cigarettes 0.3 10 Passive Smoke Exposure: Never [...] answer 07/14/2024 How often do you attend [facility] or [facility]ai services? Patient unable to answer 07/14/2024 Do you belong to any clubs o r organizations such as restoration groups, unions, fraRaftOut or athletic groups, or school groups? Patient [...] Recorded Patient Health Questionnaire-2 Score 0 12/27/2023 [facility] - Occupational Stress Questionnaire Answer [...] place to sleep or slept in a longterm (including now)? No 11/19/2023 Housing Stability Vital Sign Answer Bob e Recorded In the last 12 months, was t here a time when you were not able to pay the mortgage or rent on time? No 07/14/2024 In the past 12 months, how m any times have you moved where you were living? 1 07/14/2024 At any time in the past 12 m [facility], were you homeless or living in a longterm (including now)? 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-DEPALLETIZER OPERATOR) to steady your nerves or to get [...] as of this encounter Functional Status * Calculated C-SSRS Risk Score (Lifetime/Recent) Answer Date of Assessment Author No Risk Indicated 07/23/2024 7:45 AM EDT Abi Brown RN * Question Answer Date of Assessment Author 1. Wish to be (Past 1 Month) No 025 7:45 AM EDT Abi Brown RN 2. Non-Specific Active Suici leo Thoughts (Past 1 Month) No 07/23/2024 7:45 AM EDT Abi Brown RN 6. Suicidal Behavior (Lifetime) No 7:45 AM EDT Abi Brown RN documented as of this encounter Plan of Treatment Upcoming Encounters Date Type Department Care Team (Late st Contact Info) Description 12/01/2024 2:20 PM EDT Office Visit [facility] Nephrology, Bone & Mineral Metabolism [address], [address] [place] [address] Yovanny Curran MD [address] [place] [address] 01/08/2025 3:20 PM EDT Office Visit [facility] [place] [address], [address] [place] [address] Vincent Braga MD [address] [place] [address] documented as of this encounter Visit Diagnoses Not on filedocumented in this encounter Additional Health Concerns Assessment Noted Time A fall risk assessment has been complete d for the patient 03/19/2024 1:51 PM EST A Body Mass Index follow-up plan has been documented for the patient 07/23/2024 4:15 PM EDT documented as of this encounter Care Teams Plastic Maker Relationship Specialty Start Date End Date Enedina Mcguire APRN [address] [place] [address] PCP - General 12/04/22 Lj Tapia APRN [address] [place] [address] Referring Physician Gastroenterology 07/18/22 Nuria Fall LPN [facility] TCM Nurse 07/24/24 08/23/24 documented as of this encounter
--- OUTSIDE RECORDS SUMMARY | 2024-10-17 11:51 | XMS_ITS | Encounter Summary ---
Author Organization Healthcare Address [address] [place] [address] Care Team Providers Care Finish Opener Name Role Phone LaflinEdgar dixonmelanie Nova APRN Unavailable [phone] Enedina Mcguire APRN Primary Care Provider + Encounter Details Date Type Department Care Team (Latest Contact Info) Description 08/24/2024 Travel Social History Tobacco Use Types Packs/Day Years [...] answer 07/14/2024 How often do you attend chur or church services? Patient unable to answer 07/14/2024 Do you belong to any clubs o r organizations such as buddhism groups, unions, fraternal or athletic groups, or [...] Recorded Patient Health Questionnaire-2 Score 0 12/27/2023 [facility] - Occupational Stress Questionnaire Answer Date [...] place to sleep or slept in a fci (including now)? No 11/19/2023 Housing Stability Vital Sign Answer Bob e Recorded In the last 12 months, was t here a time when you were not able to pay the mortgage or rent on time? No 07/14/2024 In the past 12 months, how m any times have you moved where you were living? 1 07/14/2024 At any time in the past 12 m [facility], were you homeless or living in a fci (including now)? 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-CENTRIFUGAL SEPARATOR) to steady your nerves or to get [...] Description 12/01/2024 2:20 PM EDT Office Visit [facility] Neph[facility], Bone & Mineral Metabolism [address] [facility], [address] [place] [address] Yovanny Curran MD [address] [facility] [address] [place] [address] 01/08/2025 3:20 PM EDT Office Visit [facility] [place] [address] [facility], [address] [place] [address] Vincent Braga MD [address] [facility] [address] [place] [address] documented as of this encounter Visit Diagnoses Not on filedocumented in this encounter Additional Health Concerns Assessment Noted Time A fall risk assessment has been complete d for the patient 03/19/2024 1:51 PM EST A Body Mass Index follow-up plan has been documented for the patient 07/23/2024 4:15 PM EDT documented as of this encounter Care Teams Finish Opener Relationship Specialty Start Date End Date Enedina Mcguire APRN [address] [place] [address] PCP - General 12/04/22 Lj Tapia APRN [address] [place] [address] Referring Physician Gastroenterology 07/18/22 documented as of this encounter
--- OUTSIDE RECORDS SUMMARY | 2024-10-17 11:51 | XMS_ITS | Encounter Summary ---
Author Organization [facility] Address [address] [place] [address] Care Team Providers Care Family Practice Md Name Role Phone Enedina Mcguire NP Primary Care Provider [phone] Source Comments This information has been disclosed [...] release of HIV test results or diagnoses. [id number] Encounter Details Date Type Department Care Team (Late st Contact Info) Description 10/17/2024 Pharmacy Services [facility] [address] [place] [id number] Qu, Ridge, RPh Social History Tobacco Use Types Packs/Day Years Used Date Smoking Tobacco: Former Cigarettes Smokeless Tobacco: Current Alcohol Use Standard Drinks/Week Comments Yes 0 (1 standard drink = 0.6 oz pure alcohol) History of alcohol abuse, reports no use in 3 week- typically endorses use as 4 glasses of wine a days Utilities Answer Date Recorded In the past 12 months has [employer], gas, oil, or water company threatened to [...] time in the past 12 m [facility], were you homeless or living in [...] on file documented as of this encounter Progress Notes * Ridge Menjivar, [facility] - 10/17/2024 9:47 AM EDT Julien Anderson is a 39 y.o.male found to be appropriate for Naloxone dispensing based on assessment by the Pharmacist. Assessment by the pharmacist confirmed that: The requestor of Naloxone is an individual at risk of experiencing an opioid- related overdose or isin a position to assist the at-risk person. Requestor may be a family member, friend, or other person (including a safety patrol officer). The at-risk individual reports no known sensitivity or allergy to Naloxone The individual is oriented to person, place, and time, and is able to understand and learn the essential components of overdose response and Naloxone administration. Counseling on Naloxone was completed by the pharmacist. Julien Anderson expressed understanding of thefollowing: Risk factors of opioid overdose Strategies to prevent opioid overdose Signs of opioid overdose Necessity of calling 9-1-1 in the event of a suspected opioid overdose Proper technique for administering the dispensed form of Naloxone Importance of re-dosing Naloxone Adverse reactions to Naloxone, specifically potentiation of withdrawal Information on where to obtain a referral for substance abuse Julien Anderson was provided with written educational materials emphasizing the above counseling points. NALOXONE 4 MG/ACTUATION NASAL SPRAY will be dispensed to Julien Anderson documented in this encounter Plan of Treatment Upcoming Encounters Date Type Department Care Team (Late st Contact Info) Description 12/05/2024 8:01 AM EDT Hospital Encounter [facility] ENDOSCOPY [address] [place] [phone] Chris Orosco MD [address] [place] [phone] 12/05/2024 8:01 AM EDT - 12/05/2024 8:31 AM EDT Surgery [facility] ENDOSCOPY [address] [place] [phone] Chris Orosco MD [address] [place] [phone] EGD Scheduled Procedures Name Priority Associated Diagnoses Date/Ti nh EGD Cirrhosis of liver with ascites, unspecified hepatic cirrhosis type ([facility]) 12/05/2024 8:01 AM EDT documented as of this encounter Visit Diagnoses Not on filedocumented in this encounter Additional Health Concerns Infection Onset Date Last Indicated Resolved Time C. difficile 09/09/2024 09/09/2024 Assessment Noted Time PHQ-9 Depression Total Score: 17 025 11:00 AM EDT documented as of this encounter Care Teams Family Practice Md Relationship Specialty Start Date End Date Enedina Mcguire NP [address] [place] [address] PCP - General Internal Medicine 10/05/24 documented as of this encounter
--- OUTSIDE RECORDS SUMMARY | 2024-10-17 11:51 | XMS_ITS | Encounter Summary ---
Author Organization [facility] Address [address] [place] [address] Care Team Providers Care Customer Advisor Specialist Name Role Phone WisackyLj dixon Rohini RICKS Unavailable [phone] Enedina Mcguire APRN Primary Care Provider + Encounter Details Date Type Department Care Team (Latest Contact Info) Description 09/29/2024 Travel Social History Tobacco Use Types Packs/Day [...] How often do you attend chur or catholic services? Patient unable to answer 07/14/2024 Do you belong to any clubs o r organizations such as samaritan groups, unions, fraternal or athletic groups, or [...] Recorded Patient Health Questionnaire-2 Score 2 09/29/2024 [facility] - Occupational [...] in a mcfp (including now)? No 11/19/2023 PHQ-9 Answer Date [...] drink first t deborah in the morning (EYE-TECHNICAL SERVICES ASSISTANT) to steady your nerves or to [...] as of this encounter Functional Status * Over the [...] Janice Bryant documented as of this encounter Plan of Treatment Upcoming Encounters Date Type Department Care Team (Late st Contact Info) Description 12/01/2024 2:20 PM EDT Office Visit [facility] Nephrology, Bone & Mineral Metabolism [address], [address] [place] [address] Yovanny Curran MD [address] [place] [address] 01/08/2025 3:20 PM EDT Office Visit [facility] [address], [address] [place] [address] Vincent Braga MD [address] [place] [address] documented as of this encounter [...] documented as of this encounter Care Teams Customer Advisor Specialist Relationship Specialty Start Date End Date Enedina Mcguire APRN [address] [place] [id number] PCP - General 12/04/22 Lj Tapia APRN [address] [place] [address] Referring Physician Gastroenterology 07/18/22 documented as of this encounter
--- OUTSIDE RECORDS SUMMARY | 2024-10-17 11:51 | XMS_ITS | Encounter Summary ---
Author Organization [facility] Address [address] [place] [address] Care Team Providers Care Dinkey Mechanic Name Role Phone [place], Lj Nova APRN Unavailable Enedina Mcguire APRN Primary Care Provider + Encounter Details Date Type Department Care Team ([facility] st Contact Info) Description 09/25/2024 Telephone [facility] Nephrology, Bone & Mineral Metabolism [address], [address] [place] [address] Chelsy Villanueva Social History Tobacco Use Types Packs/Day Years [...] 07/14/2024 How often do you attend chur ch or taoist services? Patient unable to answer 07/14/2024 Do you belong to any clubs o r organizations such as adventist groups, unions, fraternal or athletic groups, or [...] Recorded Patient Health Questionnaire-2 Score 2 09/29/2024 [facility] - Occupational Stress Questionnaire Answer Date [...] place to sleep or slept in a skilled nursing (including now)? No 11/19/2023 PHQ-9 Answer Date [...] in a skilled nursing (including now)? 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-OUTDOOR ILLUMINATING ENGINEER) to steady your nerves or to get [...] as of this encounter Miscellaneous Notes * Telephone Encounter - Cary Dawkins RN - 09/30/2024 10:35 AM EDT Lab order faxed to [facility] at [phone] * Telephone Encounter - Shelby Rush - 09/30/2024 10:16 AM EDT Clinical Concern/Question Reason for Call: Per [facility] please fax patient's lab order to: [phone] Best contact number: Other: [phone] Optimal time of day to reach caller: ANYTIME Additional comments/information from caller: None Note: Please do not reply to this message. Follow-up communication and further actions as a result of this message need to be communicated with the patient directly, if the patient is not active onMyChart. If the patient is active on MyChart, they will receive notification of the communication/outcome via MyChart. documented in this encounter Plan of Treatment Upcoming Encounters Date Type Department Care Team (Late st Contact Info) Description 12/01/2024 2:20 PM EDT Office Visit [facility] Nephrology, Bone & Mineral Metabolism [address], [address] [place] [address] Yovanny Curran MD [address] [place] [address] 01/08/2025 3:20 PM EDT [facility] [address], [address] [place] [address] Vincent Braga MD [address] [place] [address] documented as of this encounter Visit Diagnoses Not on filedocumented in this encounter Additional Health Concerns Assessment Noted Time A fall risk assessment has been complete d for the patient 08/25/2024 2:07 PM EDT A Body Mass Index follow-up plan has been documented for the patient 08/29/2024 9:18 AM EDT documented as of this encounter Care Teams Dinkey Mechanic Relationship Specialty Start Date End Date Enedina Mcguire APRN [address] [place] [id number] PCP - General 12/04/22 Lj Tapia APRN [address] [place] [address] Referring Physician Gastroenterology 07/18/22 documented as of this encounter
--- OUTSIDE RECORDS SUMMARY | 2024-10-17 11:51 | XMS_ITS | Clinical Summary ---
Author Organization Healthcare Address [address] [place] [address] Care Team Providers Care Lpn Instructor Name Role Phone Lj Tapia Rohini RICKS Unavailable [phone] Enedina Mcguire APRN Primary Care Provider + Allergies Active Allergy Reactions Criticality Noted Date Comments Duloxetine Other - please document in the comment field,Unknown - Patient states they do not know rxn details Low 11/15/2023 Became Manic Tape/Bandaid Adhesive Itching,Rash Medium 11/25/2023 Tegaderm adhesive on Ivs, pt states its tolerable Wound Dressing Adhesive Itching,Rash Medium 11/25/2023 Tegaderm adhesive on Ivs, pt states its tolerable Medications * This document contains information received from the source organization and may not represent a complete record from that organization. Bempedoic Acid-Ezetimibe 180-10 MG tablet Take 1 tablet by mouth 1 (one) time each day. Active sildenafil (Viagra) 25 MG tablet Take 1 tablet (25 mg) by mouth daily as needed for erectile dysfunction. Active baclofen (Lioresal) 10 MG tablet Take 1 tablet (10 mg) by mouth 3 (three) times a day. Active cetirizine (ZyrTEC) 10 MG tablet Take 1 tablet (10 mg) by mouth daily as needed for allergies. Active testosterone cypionate (Depo-Testostero ne) 200 MG/ML injection Inject 1 mL (200 mg) into the muscle 1 (one) time per week. Active naloxone (Narcan) 4 mg/0.1 mL nasal spray 1. Give 1 spray in nostril for no/slow breathing or cannot wake after opioid use 2. Call 911 3. Repeat in other nostril if symptoms continue 1 each 5 Active levothyroxine (Synthroid, Levoxyl) 75 MCG tablet Take 1 tablet (75 mcg) by mouth daily before breakfast. 30 tablet 5 Active pantoprazole (Protonix) 40 MG EC tablet Take 1 tablet (40 mg) by mouth daily. 30 tablet 5 Active sodium bicarbonate 650 MG tablet Take 2 tablets (1,300 mg) by mouth in the morning and 2 tablets (1,300 mg) in the evening and 2 tablets (1,300 mg) before bedtime. 180 tablet 5 Active midodrine (Proamatine) 5 MG tablet Take 1 tablet (5 mg) by mouth 3 (three) times a day. 90 tablet 5 Active octreotide (SandoSTATIN) 100 MCG/ML injection Inject 1 mL (100 mcg) under the skin in the morning and 1 mL (100 mcg) in the evening and 1 mL (100 mcg) before bedtime. 90 mL 5 Active Baclofen 5 MG tablet 5 Active zinc sulfate (Zincate) 220 (50 Zn) MG capsule Take 1 capsule by mouth 1 (one) time each day. 5 Active thiamine (Vitamin B-1) 100 MG tablet Take 1 tablet by mouth 1 (one) time each day. 5 Active potassium chloride CR (Klor-Con M20) 20 MEQ ER tablet Take 1 tablet by mouth 1 (one) time each day. 5 Active lactulose (Enulose) 10 GM/15ML solution oral solution Take 30 mL by mouth 3 (three) times a day as needed. 5 Active Constulose 10 GM/15ML oral solution 5 Active folic acid (Folvite) 1 MG tablet Take 1 tablet by mouth 1 (one) time each day. Active Prevalite 4 GM/DOSE powder Take 1 packet by mouth 1 (one) time each day. 5 Active thiamine (Vitamin B-1) 100 MG tablet Take 1 tablet by mouth 1 (one) time each day. 5 Active ciprofloxacin (Cipro) 500 MG tablet Take 1 tablet by mouth 1 (one) time each day at the same time. 5 Active potassium chloride CR (K-Tab) 20 MEQ ER tablet Take 2 tablets by mouth daily. 5 Active traMADol (Ultram) 50 MG tablet TAKE 1 TABLET BY MOUTH EVERY 12 HOURS NEEDED FOR MODERATE PAIN 5 Active ursodiol (Actigall) 300 MG capsule Take 1 capsule by mouth twice a day. 5 Active Active Problems Problem Noted Date Diagnosed Date Decompensated cirrhosis 07/11/2024 Anxiety 03/19/2024 Overview (03/19/2024): situation in automobiles Chronic kidney disease 03/19/2024 Disease of thyroid gland 03/19/2024 GERD (gastroesophageal reflux disease) History of transfusion 03/19/2024 Hyperlipidemia 03/19/2024 Liver disease 03/19/2024 Overview (03/19/2024): cirrhosis Motion sickness 03/19/2024 Overview (03/19/2024): boat Sleep apnea 03/19/2024 Overview (03/19/2024): not in use reg. comes off at night Bleeding external hemorrhoids 01/31/2024 Acute hemorrhoid 01/30/2024 Hyperbilirubinemia 11/14/2023 Alcohol use disorder, severe, dependence 024 Cirrhosis with alcoholism 11/14/2023 Tobacco use disorder 03/07/2023 Alcoholic cirrhosis of liver without ascites Alcohol abuse 12/03/2022 Esophageal varices in cirrhosis 12/03/2022 NADIYA (acute kidney injury) 08/30/2022 GI (gastrointestinal bleed) 06/14/2022 Encounters * This document contains information received from the source organization and may not represent a complete record from that organization. Date Type Department Care Team Description 09/29/2024 2:20 PM EDT Office Visit Professional [facility] Nephrology, Bone & Mineral Metabolism [address], [address] [place] [address] Yovanny Bob MD NADIYA (acute kidney injury) ([facility]) (Primary Dx); Portal hypertension (CMS/HCC); Secondary esophageal varices with bleeding (CMS/HCC) 09/29/2024 Travel 09/25/2024 Telephone [facility] Nephrology, Bone & Mineral Metabolism [address], [address] [place] [address] Chelsy Villanueva 08/25/2024 2:20 PM EDT Office Visit Professional [facility] Nephrology, Bone & Mineral Metabolism [address], [address] [place] [address] Yovanny Bob MD NADIYA (acute kidney injury) ([facility]) (Primary Dx) 08/25/2024 Travel 08/24/2024 Travel 08/21/2024 Telephone [facility] Nephrology, Bone & Mineral Metabolism [address], [address] [place] [address] Chelsy Villanueva 07/30/2024 Telephone [facility] Nephrology, Bone & Mineral Metabolism [address], [address] [place] [address] Chelsy Villanueva 07/30/2024 Telephone [facility] [address], [address] [place] [address] Mandy Morales RN 07/25/2024 Orders Only [facility] [address] [place] [address] Joseph Gonzales MD 07/25/2024 Telephone [facility] Nephrology, Bone & Mineral Metabolism [address], [address] [place] [address] Chelsy Villanueva 07/24/2024 Telephone [facility] Nephrology, Bone & Mineral Metabolism [address], [address] [place] [address] Chelsy Villanueva 07/24/2024 Patient Outreach [facility] [address], [address] [place] [address] Nuria Fall, VERONICA TCM Call 07/24/2024 Telephone [facility] Nephrology, Bone & Mineral Metabolism [address], [address] [place] [address] Yovanny Bob MD HCN - Patient Message 07/23/2024 Telephone [facility] [address] [place] [address] Dennis Velázquez, PharmD 07/22/2024 Telephone [facility] [address], [address] [place] [address] Mandy Morales RN 07/19/2024 Travel from Last 3 Months Immunizations Immunization Administration Dates Next Due Hep B, Unspecified 09/13/2010 Influenza, Unspecified 03/12/2023 Tdap 06/03/2018,09/13/2010 Varicella 09/13/2010 Family History Medical History Relation Name Comments Anesthesia problems Neg Hx Malig Hyperthermia Neg Hx Social History Tobacco Use Types Packs/Day Years [...] often do you attend chur ch or presybeterian services? Patient unable to answer 07/14/2024 Do you belong to any clubs o r organizations such as temple groups, unions, fraternal or athletic groups, or [...] Recorded Patient Health Questionnaire-2 Score 2 09/29/2024 [facility] Questionnaire Answer Date Recorded [...] place to sleep or slept in a snf (including now)? No 11/19/2023 PHQ-9 Answer Date [...] in the past 12 m [facility], were you homeless or living in a snf (including now)? 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 SPECIALIST) to steady your nerves or to [...] on file Sexual Orientation Not on file Last Filed Vital Signs Vital Sign Reading Time Taken Comments Blood Pressure 119/83 08/25/2024 1:59 PM EDT Pulse 102 08/25/2024 1:59 PM EDT Temperature 36.5 C (97.7 F) 08/25/2024 1:59 PM EDT Respiratory Rate 18 07/23/2024 11:44 AM EDT Oxygen Saturation 99% 08/25/2024 1:59 PM EDT Inhaled Oxygen Concentration - - Weight 113 kg (250 lb) 09/29/2024 1:41 PM EDT Height 193 cm (6' 4 ) 09/29/2024 1:41 PM EDT Body Mass Index 30.43 09/29/2024 1:41 PM EDT Plan of Treatment Upcoming Encounters Date Type Department Care Team (Late st Contact Info) Description 12/01/2024 2:20 PM EDT Office Visit Professional [facility] Nephrology, Bone [facility] Mineral Metabolism [address], [address] [place] [address] Yovanny Curran MD [address] [place] [address] 01/08/2025 3:20 PM EDT Office Visit [facility] [address], [address] [place] [address] Vincent Braga MD [address] [place] [id number] Health Maintenance Due Date Last Done Comments [facility]-Infant/Child/Adol SDOH Screenings 1983 HPV Vaccines (1 - Male 3-dose series) 1998 [facility]-Hepatitis A Vaccines (1 of 2 - Risk 2-dose series) 2002 [facility]-Pneumococcal Vaccine: Pediatrics (0 to 5 Years) and At-Risk Patients (6 to 49 Years) (1 of 2 - PCV) 2002 [facility]-Hepatitis B Vaccines (2 of 3 - 19+ 3-dose series) 10/11/2010 09/13/2010 [facility]-Varicella Vaccines (2 of 2 - 13+ 2-dose series) 10/11/2010 09/13/2010 [id number] Vaccine (4 - 2023-25 season) 2024 03/17/2021, 07/25/2020, 06/27/2020 [facility]- SDOH Screenings 01/14/2025 [facility]-Adult SDOH Screenings 01/14/2025 07/14/2024 [facility]-Depression Screening 09/29/2025 09/29/2024, 09/11 [facility]-DTaP,Tdap,and Td Vaccines (3 - Td or Tdap) 06/03/2028 06/03/2018, 09/13/2010 [facility]-Zoster Vaccines (1 of 2) 2033 09/13/2010 [facility]-Abdominal Aortic Aneurysm (AAA) Screening 2048 07/28/2024, 07/28/2024, 07/29/2022, Additional history exists [facility]-Influenza Vaccine Completed 03/12/2024, 023 [facility]-HIV Screening Completed 07/14/2024, 11/14/2023 [facility]-Hepatitis C Screening Completed 2024, 11/14/2023, 08/01/2022 [facility]-Obesity Intervention Completed 025, 08/25/2024, 07/11/2024, Additional history exists [facility]-HIB Vaccines Aged Out No longer e ligible based on patient's age to complete this topic [facility]-IPV Vaccines Aged Out No longer e ligible based on patient's age to complete this topic [facility]-Rotavirus Vaccines Aged Out No lo nger eligible based on patient's age to complete this topic Medical Devices Implanted Type Area Inspection And Testing Supervisor Device Identifier Shelf Expiration Date Model / Serial / Lot Concerto Redig Coil-07/03/2022 Implanted:06/15 by Timmy Brunner MD (Quantity not on file) Coil Abdomen Description:Multiple Coil Co ncerto Pgla Redig Detach COILS implanted on 07/03/2022 by Timmy Brunner MD at [facility]--info can be found in Care Everywhere for [facility] as of 11/15/23 Dona Coil-07/03/2022 Implanted:06/15 by Timmy Brunner MD (Quantity not on file) Coil Abdomen [employer] Description:Coil Emb Dona 3.7/Implanted: Qty: 1 on 07/03/2022 by Timmy Brunner MD at [facility] Plate Plate N/A: Neck Plug Vasc Anton Emb Amplatzer Implanted:06/15 by Timmy Brunner MD (Quantity not on file) Plug Other Vein / / [id number] Description:Plug Vasc Anton Em b Ampltz .027 [id number] - [id number] Implanted: Qty: 1 on 07/03/2022 by Timmy Brunner MD at [facility] Stent Gastro Panc 5fr 5cm - [id number] Implanted:Qty: 1 on 11/20/2023 by Devang Mcghee, ЮЛИЯ at [facility] Pancreas [employer]-[id number] 08/13/2026 [id number] / / [id number] Procedures Procedure Name Priority Date/Time Associated Diagnosis Comments PROTHROMBIN TIME(PT) / INR Routine 07/23/2024 2:32 AM EDT COMPREHENSIVE METABOLIC PANEL, PLASMA Routine 07/23/2024 2:32 AM EDT CBC WITH AUTO DIFFERENTIAL Routine 07/23/2024 2:32 AM EDT POCT GLUCOSE METER UNSOLICITED RESULTS Routine 07/22/2024 12:10 PM EDT PROTHROMBIN TIME(PT) / INR Routine 07/22/2024 2:42 AM EDT COMPREHENSIVE METABOLIC PANEL, PLASMA Routine 07/22/2024 2:29 AM EDT CBC W/O DIFFERENTIAL Routine 07/22/2024 2:29 AM EDT PROTHROMBIN TIME(PT) / INR Routine 07/21/2024 6:12 AM EDT CBC W/O DIFFERENTIAL Routine 07/21/2024 6:12 AM EDT COMPREHENSIVE METABOLIC PANEL, PLASMA Routine 07/21/2024 6:12 AM EDT COMPREHENSIVE METABOLIC PANEL, PLASMA Routine 07/20/2024 2:14 PM EDT PROTHROMBIN TIME(PT) / INR Routine 07/20/2024 6:04 AM EDT COMPREHENSIVE METABOLIC PANEL, PLASMA Routine 07/20/2024 6:04 AM EDT CBC W/O DIFFERENTIAL Routine 07/20/2024 6:04 AM EDT US ABDOMEN FOCUSED REGION Routine 07/19/2024 9:26 AM EST PROTHROMBIN TIME(PT) / INR Routine 07/19/2024 1:14 AM EST COMPREHENSIVE METABOLIC PANEL, PLASMA Routine 07/19/2024 1:14 AM EST BLOOD CULTURE (AEROBIC/ANAEROBIC SET) Routine 07/19/2024 1:14 AM EST PROTHROMBIN TIME(PT) / INR Routine 07/18/2024 6:00 AM EST CBC WITH AUTO DIFFERENTIAL Routine 07/18/2024 6:00 AM EST COMPREHENSIVE METABOLIC PANEL, PLASMA Routine 07/18/2024 6:00 AM EST SODIUM, URINE, RANDOM Routine 07/17/2024 2:09 PM EST URINE MATSON PANEL Routine 07/17/2024 2:09 PM EST URINALYSIS WITH REFLEX MICROSCOPIC Routine 07/17/2024 2:09 PM EST URINALYSIS WITH REFLEX MICROSCOPIC AND CULTURE Routine 07/17/2024 2:09 PM EST BASIC METABOLIC PANEL, PLASMA Routine 07/17/2024 11:15 AM EST PROTHROMBIN TIME(PT) / INR Routine 07/17/2024 6:10 AM EST CBC WITH AUTO DIFFERENTIAL Routine 07/17/2024 6:10 AM EST COMPREHENSIVE METABOLIC PANEL, PLASMA Routine 07/17/2024 6:10 AM EST HEPATITIS C ANTIBODY W/REFLEX TO HCV QUANT PCR STAT 07/14/2024 4:31 PM EST HIV 1/2 ANTIBODY/ANTIGEN SCREEN WITH REFLEX TO HIV I/II DIFFERENTIATION STAT 07/14/2024 4:31 PM EST from Last 3 Months or Most Recently Relevant to Health Maintenance Results * (ABNORMAL) Prothrombin Time/INR (07/23/2024 2:32 AM EDT) Only the most recent of7 resultswithin the time period is included. Prothrombin Time 19.2(H) 12.0 - 14.3 sec 07/23/2024 2:57 AM EDT [facility] INR 1.6(H) 0.9 - 1.1 07/23/2024 2:57 AM EDT [facility] Blood Venous blood specimen / Unknown Venipuncture / Unknown 07/23/2024 2:32 AM EDT 07/23/2024 2:45 AM EDT Narrative [facility] - 07/23/2024 2:57 AM EDT OPTIMAL INR RANGES FOR PATIENT ON ORAL ANTICOAGULANT THERAPY Prevention of venous thromboembolism INR 2.0 to 3.0 In patients with heart disease: Atrial fibrillation INR 2.0 to 3.0 Valvular heart disease INR 2.0 to 3.0 Tissue heart valves INR 2.0 to 3.0 Mechanical prosthetic valves INR 2.5 to 3.5 Prevention of recurrent NM INR 2.5 to 3.5 us Joseph Gonzales MD LAB BLOOD ORDERABLES Final Resu lt [facility] [address] [place] [address] * (ABNORMAL) CBC and Differential (07/23/2024 2:32 AM EDT) Only the most recent of3 resultswithin the time period is included. WBC Count 7.89 3.70 - 10.30 10*3/uL LAB HEMATOLOGY METHOD 07/23/2024 3:00 AM EDT [facility] RBC Count 4.07(L) 4.60 - 6.10 10*6/uL LAB HEMATOLOGY METHOD 07/23/2024 3:00 AM EDT [facility] HGB 13.3(L) 13.7 - 17.5 g/dL LAB HEMATOLOGY METHOD 07/23/2024 3:00 AM EDT [facility] HCT 37.7(L) 40.0 - 51.0 % LAB HEMATOLOGY METHOD 07/23/2024 3:00 AM EDT [facility] Platelet Count 69(L) 155 - 369 10*3/uL LAB HEMATOLOGY METHOD 07/23/2024 3:00 AM EDT [facility] MCV 93 79 - 98 fL LAB HEMATOLOGY METHOD 07/23/2024 3:00 AM EDT [facility] MCH 32.7(H) 26.0 - 32.0 pg LAB HEMATOLOGY METHOD 07/23/2024 3:00 AM EDT [facility] MCHC 35.3 30.7 - 35.5 g/dL LAB HEMATOLOGY METHOD 07/23/2024 3:00 AM EDT [facility] RDW 23.7(H) 11.5 - 14.5 % LAB HEMATOLOGY METHOD 07/23/2024 3:00 AM EDT [facility] MPV LAB HEMATOLOGY METHOD 07/23/2024 3:00 AM EDT [facility] Comment:Not Measured nRBC 0.0 <=0.0 per 100 WBCs LAB HEMATOLOGY METHOD 07/23/2024 3:00 AM EDT [facility] Differential Type Automated LAB HEMATOLOGY METHOD 07/23/2024 3:00 AM EDT [facility] Neutrophils % 79 % LAB HEMATOLOGY METHOD 07/23/2024 3:00 AM EDT [facility] Lymphocytes % 10 % LAB HEMATOLOGY METHOD 07/23/2024 3:00 AM EDT [facility] Monocytes % 8 % LAB HEMATOLOGY METHOD 07/23/2024 3:00 AM EDT [facility] Eosinophils % 1 % LAB HEMATOLOGY METHOD 07/23/2024 3:00 AM EDT [facility] Basophils % 1 % LAB HEMATOLOGY METHOD 07/23/2024 3:00 AM EDT [facility] Immature Granulocytes % 1 % LAB HEMATOLOGY METHOD 07/23/2024 3:00 AM EDT [facility] Neutrophils Absolute 6.19(H) 1.60 - 6.10 10*3/uL LAB HEMATOLOGY METHOD 07/23/2024 3:00 AM EDT [facility] Lymphocytes Absolute 0.80(L) 1.20 - 3.90 10*3/uL LAB HEMATOLOGY METHOD 07/23/2024 3:00 AM EDT [facility] Monocytes Absolute 0.66 0.30 - 0.90 10*3/uL LAB HEMATOLOGY METHOD 07/23/2024 3:00 AM EDT [facility] Eosinophils Absolute 0.10 0.00 - 0.50 10*3/uL LAB HEMATOLOGY METHOD 07/23/2024 3:00 AM EDT [facility] Basophils Absolute 0.10 0.00 - 0.10 10*3/uL LAB HEMATOLOGY METHOD 07/23/2024 3:00 AM EDT [facility] Immature Granulocytes Absolute 0.04 0.00 - 0.06 10*3/uL LAB HEMATOLOGY METHOD 07/23/2024 3:00 AM EDT [facility] Blood Venous blood specimen / Unknown Venipuncture / Unknown 07/23/2024 2:32 AM EDT 07/23/2024 2:45 AM EDT Narrative [facility] - 07/23/2024 3:00 AM EDT Therapeutic decision making should be based on absolute values, rather than percentages. us Joseph Gonzales MD LAB BLOOD ORDERABLES Final Resu lt [facility] [address] [place] [address] * (ABNORMAL) Comprehensive metabolic panel (07/23/2024 2:32 AM EDT) Only the most recent of8 resultswithin the time period is included. Glucose, Plasma 143(H) 74 - 99 mg/dL 07/23/2024 3:20 AM EDT [facility] Comment: Icteric specimen. Result may be affected, interpret result in the context of the patient's condition and other laboratory results. BUN, Plasma 29(H) 7 - 21 mg/dL 07/23/2024 3:20 AM EDT [facility] Comment: Icteric specimen. Result may be affected, interpret result in the context of the patient's condition and other laboratory results. Creatinine, Plasma 1.54(H) 0.70 - 1.20 mg/dL 07/23/2024 3:20 AM EDT [facility] Comment: Icteric specimen. Result may be falsely decreased. Interpret result in the context of the patient's condition and other laboratory results. BUN/Creatinine Ratio 19 07/23/2024 3:20 AM EDT [facility] Sodium, Plasma 133(L) 136 - 145 mmol/L 07/23/2024 3:20 AM EDT [facility] Comment: Icteric specimen. Result may be affected, interpret result in the context of the patient's condition and other laboratory results. Potassium, Plasma 3.3(L) 3.6 - 4.9 mmol/L 07/23/2024 3:20 AM EDT [facility] Comment: Icteric specimen. Result may be affected, interpret result in the context of the patient's condition and other laboratory results. Chloride, Plasma 104 97 - 107 mmol/L 07/23/2024 3:20 AM EDT [facility] Comment: Icteric specimen. Result may be affected, interpret result in the context of the patient's condition and other laboratory results. CO2, Plasma 16(L) 22 - 29 mmol/L 07/23/2024 3:20 AM EDT [facility] Comment: Icteric specimen. Result may be affected, interpret result in the context of the patient's condition and other laboratory results. Anion Gap 13 6 - 16 mmol/L 07/23/2024 3:20 AM EDT [facility] Total Calcium, Plasma 9.0 8.9 - 10.2 mg/dL 07/23/2024 3:20 AM EDT [facility] Comment: Icteric specimen. Result may be affected, interpret result in the context of the patient's condition and other laboratory results. Total Protein 5.2(L) 6.3 - 7.9 g/dL 07/23/2024 3:20 AM EDT [facility] Comment: Icteric specimen. Result may be affected, interpret result in the context of the patient's condition and other laboratory results. Albumin, Plasma 3.8 3.5 - 5.2 g/dL 07/23/2024 3:20 AM EDT [facility] Comment: Icteric specimen. Result may be affected, interpret result in the context of the patient's condition and other laboratory results. AST, Plasma 106(H) 10 - 50 U/L 07/23/2024 3:20 AM EDT [facility] Comment: Icteric specimen. Result may be affected, interpret result in the context of the patient's condition and other laboratory results. ALT, Plasma 64(H) 10 - 50 U/L 07/23/2024 3:20 AM EDT [facility] Comment: Icteric specimen. Result may be affected, interpret result in the context of the patient's condition and other laboratory results. Alkaline Phosphatase, Plasma 98 40 - 115 U/L 07/23/2024 3:20 AM EDT [facility] Comment: Icteric specimen. Result may be affected, interpret result in the context of the patient's condition and other laboratory results. Total Bilirubin, Plasma 48.8(H) 0.2 - 1.1 mg/dL 07/23/2024 3:20 AM EDT [facility] eGFRcr 57.8 mL/min/1.7 3m*2 07/23/2024 3:20 AM EDT [facility] Comment:Reported eGFRcr in m L/min/1.73m2 is based the CKD-EPI 2020 equation that does not use a race coefficient. Blood Venous blood specimen / Unknown Venipuncture / Unknown 07/23/2024 2:32 AM EDT 07/23/2024 2:45 AM EDT us Joseph Gonzales MD LAB BLOOD ORDERABLES Final Resu lt [facility] [address] [place] [address] * (ABNORMAL) POCT glucose meter (07/22/2024 12:10 PM EDT) [facility] POCT Glucose 120(H) 74 - 99 mg/dL 07/22/2024 12:12 PM EDT [facility] Comment:Accuracy of a glucos e result obtained from a capillary whole blood specimen relies upon adequate, non-compromised capillary blood flow. If the capillary glucose result is not consistent with the patient's clinical signs and symptoms, glucose testing should be repeated with either an arterial or venous sample on the glucometer or sent to the main labortory for testing. Comment 07/22/2024 12:12 PM EDT [facility] Trumpet Player ID Cristo Palacio 12:12 PM EDT [facility] Device ID [id number] 07/22/2024 12:12 PM EDT [facility] Specimen Type POC Capillary 07/22/2024 12:12 PM EDT [facility] Blood Capillary blood specimen / Unknown 07/22/2024 12:10 PM EDT 07/22/2024 12:12 PM EDT Joseph Gonzales MD LAB POINT OF CARE TE ST DOCKED DEVICE UNSOLICITED RESULTS Final Result Performing Organization Address City/State/[facility] Co de Phone Number [facility] [address] [place] [address] * (ABNORMAL) CBC W/O Differential (07/22/2024 2:29 AM EDT) Only the most recent of3 resultswithin the time period is included. [facility] WBC Count 8.64 3.70 - 10.30 10*3/uL LAB HEMATOLOGY METHOD 07/22/2024 3:15 AM EDT [facility] RBC Count 4.44(L) 4.60 - 6.10 10*6/uL LAB HEMATOLOGY METHOD 07/22/2024 3:15 AM EDT [facility] HGB 14.5 13.7 - 17.5 g/dL LAB HEMATOLOGY METHOD 07/22/2024 3:15 AM EDT [facility] HCT 42.5 40.0 - 51.0 % LAB HEMATOLOGY METHOD 07/22/2024 3:15 AM EDT [facility] Platelet Count 71(L) 155 - 369 10*3/uL LAB HEMATOLOGY METHOD 07/22/2024 3:15 AM EDT [facility] MCV 96 79 - 98 fL LAB HEMATOLOGY METHOD 07/22/2024 3:15 AM EDT [facility] MCH 32.7(H) 26.0 - 32.0 pg LAB HEMATOLOGY METHOD 07/22/2024 3:15 AM EDT [facility] MCHC 34.1 30.7 - 35.5 g/dL LAB HEMATOLOGY METHOD 07/22/2024 3:15 AM EDT [facility] RDW 24.0(H) 11.5 - 14.5 % LAB HEMATOLOGY METHOD 07/22/2024 3:15 AM EDT [facility] MPV 10.5 8.8 - 12.5 fL LAB HEMATOLOGY METHOD 07/22/2024 3:15 AM EDT [facility] nRBC 0.0 <=0.0 per 100 WBCs LAB HEMATOLOGY METHOD 07/22/2024 3:15 AM EDT [facility] Blood Venous blood specimen / Unknown Venipuncture / Unknown 07/22/2024 2:29 AM EDT 07/22/2024 3:03 AM EDT us Mita Schmidt MD LAB BLOOD ORDERABLES Final Resul t [facility] [address] [place] [address] * US Abdomen Focused Region Other (07/19/2024 9:26 AM EST) Anatomical Region Laterality Modality Abdomen Ultrasound Impressions 07/19/2024 9:47 AM EST No ascites. CRITICAL RESULT: No. COMMUNICATION: Per this written report. Drafted by Stacey Gupta MD on 07/19/2024 9:47 AM Final report signed by Stacey Gupta MD on 07/19/2024 9:47 AM Narrative 07/19/2024 9:47 AM EST CLINICAL INDICATION: Ascites TECHNIQUE: Focused static and cine grayscale ultrasound images of portions of the abdomen were obtained COMPARISON: None. FINDINGS: Abdomen: Limited sonographic evaluation of the upper and lower quadrants of the abdomen demonstrates no evidence of ascites.. Other: N/A Procedure Note Stacey Gupta MD - 07/19/2024 CLINICAL INDICATION: Ascites TECHNIQUE: Focused static and cine grayscale ultrasound images of portions of theabdomen were obtained COMPARISON: None. FINDINGS: Abdomen: Limited sonographic evaluation of the upper and lower quadrantsof the abdomen demonstrates no evidence of ascites.. Other: N/A IMPRESSION: No ascites. CRITICAL RESULT: No. COMMUNICATION: Per this written report. Drafted by Stacey Gupta MD on 07/19/2024 9:47 AM Final report signed by Stacey Gupta MD on 07/19/2024 9:47 AM Mita Schmidt MD IMG US PROCEDURES Final Result * Blood Culture (Aerobic/Anaerobet Set) (07/19/2024 1:14 AM EST) Culture No growth at day 5 07/24/2024 5:01 AM EDT [facility] Blood Venous blood specimen / Unknown Venipuncture / Unknown 07/19/2024 1:14 AM EST 07/19/2024 1:20 AM EST Mita Schmidt MD LAB MICROBIOLOGY - GENERAL ORDER PAL Final Result [facility] [address] [place] [address] * Urine Matson Panel (07/17/2024 2:09 PM EST) Extra Reflex urine culture not indicated 07/17/2024 11:01 PM EST [facility] Comment: Previously prelim verified as Specimen evaluation in progress on 07/17/2024 at 1601 EST. Previously prelim verified as Specimen evaluation in progress on 07/17/2024 at 1701 EST. Previously prelim verified as Specimen evaluation in progress on 07/17/2024 at 1801 EST. Previously prelim verified as Specimen evaluation in progress on 07/17/2024 at 1901 EST. Previously prelim verified as Specimen evaluation in progress on 07/17/2024 at 2001 EST. Previously prelim verified as Specimen evaluation in progress on 07/17/2024 at 2101 EST. Previously prelim verified as Specimen evaluation in progress on 07/17/2024 at 2201 EST. Urine Urine specimen obtained by clean catch procedure / Unknown Non-blood Collection / Unknown 07/17/2024 2:09 PM EST 07/17/2024 2:15 PM EST us Mita Schmidt MD LAB URINE ORDERABLES Final Resul t Performing Organization Address [facility] Co de Phone Number [facility] [address] [place] [address] * Sodium, urine, random (07/17/2024 2:09 PM EST) Sodium, Urine 29 mmol/L 07/17/2024 2:31 PM EST [facility] Urine Urine specimen obtained by clean catch procedure / Unknown Non-blood Collection / Unknown 07/17/2024 2:09 PM EST 07/17/2024 2:15 PM EST us Mita Schmidt MD LAB URINE ORDERABLES Final Resul t Performing Organization Address [facility] de Phone Number [facility] [address] [place] [address] * (ABNORMAL) Urinalysis with reflex microscopic (Culture NOT Included) (07/17/2024 2:09 PM EST) Color, Urine Hood LAB URINALYSIS - AUTOMATED METHOD 07/17/2024 2:41 PM EST [facility] Clarity, Urine Cloudy LAB URINALYSIS - AUTOMATED METHOD 07/17/2024 2:41 PM EST [facility] Spec [place], Urine 1.010 1.005 - 1.030 LAB URINALYSIS - AUTOMATED METHOD 07/17/2024 2:41 PM EST [facility] pH, Urine 6.5 5.0 - 8.0 LAB URINALYSIS - AUTOMATED METHOD 07/17/2024 2:41 PM EST [facility] Protein, Urine Trace(A) Negative mg/dL LAB URINALYSIS - AUTOMATED METHOD 07/17/2024 2:41 PM EST [facility] Glucose, Urine 100(A) Negative mg/dL LAB URINALYSIS - AUTOMATED METHOD 07/17/2024 2:41 PM EST [facility] Ketones, Urine Negative Negative mg/dL LAB URINALYSIS - AUTOMATED METHOD 07/17/2024 2:41 PM EST [facility] Blood, Urine Negative Negative LAB URINALYSIS - AUTOMATED METHOD 07/17/2024 2:41 PM EST [facility] Bilirubin, Urine Large(A) Negative LAB URINALYSIS - AUTOMATED METHOD 07/17/2024 2:41 PM EST [facility] Urobilinogen, Urine 0.2 0.2 to 1.0 mg/dL LAB URINALYSIS - AUTOMATED METHOD 07/17/2024 2:41 PM EST [facility] Leukocytes, Urine Negative Negative LAB URINALYSIS - AUTOMATED METHOD 07/17/2024 2:41 PM EST [facility] Nitrite, Urine Negative Negative LAB URINALYSIS - AUTOMATED METHOD 07/17/2024 2:41 PM EST [facility] Urine Urine specimen obtained by clean catch procedure / Unknown Non-blood Collection / Unknown 07/17/2024 2:09 PM EST 07/17/2024 2:16 PM EST Narrative [facility] - 07/17/2024 2:41 PM EST Urinalysis dipstick results may be inaccurate due to specimen color or an interfering substance in the specimen. us Mita Schmidt MD LAB URINE ORDERABLES Final Resul t [facility] [address] [place] [address] * (ABNORMAL) Basic metabolic panel (07/17/2024 11:15 AM EST) Glucose, Plasma 113(H) 74 - 99 mg/dL 07/17/2024 12:00 PM EST [facility] BUN, Plasma 29(H) 7 - 21 mg/dL 07/17/2024 12:00 PM EST [facility] Creatinine, Plasma 1.51(H) 0.70 - 1.20 mg/dL 07/17/2024 12:00 PM EST [facility] BUN/Creatinine Ratio 19 07/17/2024 12:00 PM EST [facility] Sodium, Plasma 129(L) 136 - 145 mmol/L 07/17/2024 12:00 PM EST [facility] Potassium, Plasma 3.1(L) 3.6 - 4.9 mmol/L 07/17/2024 12:00 PM EST [facility] Chloride, Plasma 105 97 - 107 mmol/L 07/17/2024 12:00 PM EST [facility] CO2, Plasma 13(L) 22 - 29 mmol/L 07/17/2024 12:00 PM EST [facility] Anion Gap 11 6 - 16 mmol/L 07/17/2024 12:00 PM EST [facility] Total Calcium, Plasma 8.6(L) 8.9 - 10.2 mg/dL 07/17/2024 12:00 PM EST [facility] eGFRcr 59.1 mL/min/1.7 3m*2 07/17/2024 12:00 PM EST [facility] Comment:Reported eGFRcr in m L/min/1.73m2 is based the CKD-EPI 2020 equation that does not use a race coefficient. Blood Venous blood specimen / Unknown Venipuncture / Unknown 07/17/2024 11:15 AM EST 07/17/2024 11:25 AM EST Mita Schmidt MD LAB BLOOD ORDERABLES Final Resul t Performing Organization Address City/[facility]/ZIP Co de Phone Number [facility] [address] [place] [address] * HIV 1 & 2 Antibody/Antigen Screen (07/14/2024 4:31 PM EST) Pathologist [facility] HIV 1 & 2 Antibody/Antigen Screen Non Reactive Non Reactive 07/14/2024 5:31 PM EST [facility] Comment:Screening for HIV 1 & 2 antibodies, and P24 antigen is NONREACTIVE. No confirmatory testing is required. Blood Venous blood specimen / Unknown Venipuncture / Unknown 07/14/2024 4:31 PM EST 07/14/2024 4:56 PM EST Laureano Salinas APRN, [facility] LAB BLOOD ORDERA BLES Final Result [facility] [address] [place] [address] * Hepatitis C Antibody (07/14/2024 4:31 PM EST) Pathologist [facility] Hepatitis C Antibody Negative Negative 07/14/2024 5:27 PM EST [facility] Blood Venous blood specimen / Unknown Venipuncture / Unknown 07/14/2024 4:31 PM EST 07/14/2024 4:54 PM EST Laureano Salinas CONTROL ROOM OPERATOR, DNP LAB BLOOD ORDERA BLES Final Result [facility] [address] [place] [address] from Last 3 Months or Most Recently Relevant to Health Maintenance Insurance [facility] Advance Directives * Full Code (Latest Code Status on File) Date Activated Date Inactivated Comments 07/11/2024 11:04 PM 07/23/2024 6:27 PM Question Answer Comments Patient has decision-making capacity? Yes * Full Code Date Activated Date Inactivated Comments 11/14/2023 10:15 PM 11/27/2023 9:08 PM Question Answer Comments Patient has decision-making capacity? Yes Care Teams Lpn Instructor Relationship Specialty Start Date End Date Enedina Mcguire APRN [address] [place] [id number] PCP - General 12/04/22 Lj Tapia APRN [address] [place] [address] Referring Physician Gastroenterology 07/18/22
--- OUTSIDE RECORDS SUMMARY | 2024-10-17 11:51 | XMS_ITS | Encounter Summary ---
Author Organization Healthcare Address [address] [place] [address] Care Team Providers Care Multicultural Services Librarian Name Role Phone Lj Tapia DUMPER BULK SYSTEM Unavailable [phone] Enedina Mcguire DUMPER BULK SYSTEM Primary Care Provider + Nuria Fall RAD TECH Unavailable Unavaila ble Encounter Details Date Type Department Care Team ([facility] st Contact Info) Description 08/21/2024 Telephone [facility] Mineral Met[facility] [address] [facility] [address], [address] [place] [address] Chelsy Villanueva Social History Tobacco [...] [facility] or protestant services? Patient unable to answer 07/14/2024 Do you belong to any clubs o r organizations such as sabianism groups, unions, fraActSocial or athletic groups, or school groups? Patient [...] Recorded Patient Health Questionnaire-2 Score 0 [facility]2023 [facility] - Occupational Stress Questionnaire Answer [...] place to sleep or slept in a custodial (including now)? No 11/19/2023 Housing Stability Vital [...] living in a custodial (including now)? 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 or to get [...] Description 12/01/2024 2:20 PM EDT Office Visit [facility] [facility]ph[facility], Bone & Mineral Metabolism [address], [address] [place] [address] Yovanny Curran MD [address] [place] [address] 01/08/2025 3:20 PM EDT [facility] Visit [facility] [address] [place] [address] Vincent Braga MD [address] [place] [address] documented as of this encounter Visit Diagnoses Not on filedocumented in this encounter Additional Health Concerns Assessment Noted Time A fall risk assessment has been complete d for the patient 03/19/2024 1:51 PM EST A Body Mass Index follow-up plan has been documented for the patient 07/23/2024 4:15 PM EDT documented as of this encounter Care Teams Multicultural Services Librarian Relationship Specialty Start Date End Date Enedina Mcguire APRN [address] [place] [id number] PCP - General 12/04/22 Lj Tapia APRN [address] [place] [address] Referring Physician Gastroenterology 07/18/22 Nuria Fall LPN [facility] TCM Nurse 07/24/24 08/23/24 documented as of this encounter
--- OUTSIDE RECORDS SUMMARY | 2024-10-17 11:51 | XMS_ITS | Encounter Summary ---
Author Organization [facility] Address [address] [place] [address] Care Team Providers Care Plasma Cutting Machine Operator Name Role Phone WeinertLj dixon Rohini RICKS Unavailable [phone] Enedina Mcguire APRN Primary Care Provider + Encounter Details Date Type Department Care Team (Latest Contact Info) Description 08/25/2024 Travel Social History Tobacco Use Types Packs/Day [...] How often do you attend chur or lutheran services? Patient unable to answer 07/14/2024 Do you belong to any clubs o r organizations such as pentecostalism groups, unions, fraternal or athletic groups, or [...] Recorded Patient Health Questionnaire-2 Score 0 12/27/2023 [facility] - [...] place to sleep or slept in a nursing home (including now)? No 11/19/2023 Housing Stability [...] time in the past 12 m [facility], were you homeless or living in a nursing home (including now)? 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) to steady your nerves or to get [...] 12/01/2024 2:20 PM EDT Office Visit [facility] Nephrology, Bone & Mineral Metabolism [address], [address] [place] [address] Yovanny Curran MD [address] [place] [address] 01/08/2025 3:20 PM EDT [facility] Visit [facility] [place] [address] [facility] [address], [address] [place] [address] Vincent Braga MD [address] [facility] [address] [place] [address] documented as of this encounter Visit Diagnoses Not on filedocumented in this encounter Additional Health Concerns Assessment Noted Time A fall risk assessment has been complete d for the patient 08/25/2024 2:07 PM EDT A Body Mass Index follow-up plan has been documented for the patient 08/29/2024 9:18 AM EDT documented as of this encounter Care Teams Plasma Cutting Machine Operator Relationship Specialty Start Date End Date Enedina Mcguire APRN [address] [place] [id number] PCP - General 12/04/22 Lj Tapia APRN [address] [place] [id number] Referring Physician Gastroenterology 07/18/22 documented as of this encounter
--- OUTSIDE RECORDS SUMMARY | 2024-10-17 11:52 | XMS_ITS | Clinical Summary ---
Author Organization [facility] Address [facility] [place] [address] Care Team Providers Care Event Security Officer Name Role Phone Enedina Mcguire NP Primary Care Provider [phone] Source Comments This information has been disclosed to you from confidential records protectedfrom disclosure by state law. You shall make no further disclosure of thisinformation without the specific, written, and informed release of theindividual to whom it pertains, or as otherwise permitted by law. A generalauthorization for the release of medical or other information is not sufficientfor the purposes of therelease of HIV test results or diagnoses. [id number] Allergies Active Allergy Reactions Criticality Noted Date Comments Adhesive Itching,Rash Medium 11/25/2023 Tegaderm adhesive on Ivs, pt states its tolerable Duloxetine Other (See Comments) Low 11/15/2023 Became Manic Medications folic acid (FOLVITE) 1 MG tablet Take 1 tablet (1 mg total) by mouth daily. Active levothyroxine (SYNTHROID) 75 MCG tablet Take 1 tablet (75 mcg total) by mouth every morning before breakfast. Active pantoprazole (PROTONIX) 40 MG tablet Take 1 tablet (40 mg total) by mouth every morning before breakfast. Active rifAXIMin (XIFAXAN) 550 mg Tab tablet Take 1 tablet (550 mg total) by mouth 2 times a day. 60 tablet 08/19/2024 1:23 PM EDT Active zinc sulfate (ZINCATE) 50 mg zinc (220 mg) capsule Take 1 capsule (220 mg total) by mouth daily. 60 capsule 08/19/2024 1:23 PM EDT 5 Active sodium bicarbonate 650 MG tablet Take 2 tablets (1,300 mg total) by mouth 3 times a day. 90 tablet 08/19/2024 1:23 PM EDT 5 Active potassium chloride (KLOR-CON M20) 20 MEQ tabletIndicatio ns:Hypokalemia Take 2 tablets (40 mEq total) by mouth daily. 60 tablet 2 5 Active ciprofloxacin HCl (CIPRO) 500 MG tablet Take 1 tablet (500 mg total) by mouth daily. 30 tablet 09/09/2024 3:56 PM EDT 5 Active ursodioL (ACTIGALL) 300 mg capsule Take 1 capsule (300 mg total) by mouth 2 times a day. 60 capsule 09/09/2024 3:56 PM EDT 5 Active thiamine HCl (VITAMIN B-1) 100 MG tablet Take 1 tablet (100 mg total) by mouth daily. 30 tablet 5 Active lactulose (CHRONULAC) 10 gram/15 mL solution Take 30 mLs (20 g total) by mouth 3 times a day. 946 mL 10/17/2024 10:24 AM EDT 5 Active loratadine (CLARITIN) 10 mg tablet Take 1 tablet (10 mg total) by mouth daily as needed for Allergies (itching). 30 tablet 10/17/2024 10:24 AM EDT 5 Active methocarbamoL (ROBAXIN) 500 MG tablet Take 1 tablet (500 mg total) by mouth 3 times a day. 90 tablet 10/17/2024 10:24 AM EDT 5 Active oxyCODONE (ROXICODONE) 5 MG immediate release tabletIndicatio ns:Pain Take 1 tablet (5 mg total) by mouth every 6 hours as needed for up to 3 days. 12 tablet 10/17/2024 10:24 AM EDT 5 10/21/19 25 Active midodrine (PROAMATINE) 10 MG tablet Take 1 tablet (10 mg total) by mouth 3 times a day. 90 tablet 10/17/2024 10:24 AM EDT 5 Active FLUoxetine (PROZAC) 20 MG capsule Take 1 capsule (20 mg total) by mouth daily. 30 capsule 2 10/17/2024 10:24 AM EDT Active naloxone (NARCAN) 4 mg/actuation Kinta Apply 1 spray in one nostril if needed. Call 911. May repeat dose in other nostril if no response in 3 minutes. 2 each 1 10/17/2024 10:25 AM EDT Active traMADoL (ULTRAM) 50 mg tablet Take 1 tablet (50 mg total) by mouth every 12 hours as needed for Pain (Pain). 10/18/19 Discontinu ed(Stop Taking at Discharge) lactulose (CHRONULAC) 10 gram/15 mL solution Take 30 mLs (20 g total) by mouth 3 times a day as needed (goal 2-3 bowel movements a day). 2838 mL 08/19/2024 1:23 PM EDT 5 10/18/19 Discontinu ed(Stop Taking at Discharge) cholestyramine- aspartame (PREVALITE) 4 gram Powd bulk Mix one scoop with 4-6 ounces of water and drink by mouth daily. 231 g 08/19/2024 1:23 PM EDT 10/06/19 Discontinu ed(Patient Choice / Non-adhere nce) vancomycin (VANCOCIN) 125 MG capsule Take 1 capsule (125 mg total) by mouth 4 times a day for 10 days. 40 capsule 09/09/2024 3:56 PM EDT 09/20/19 Active Problems Problem Noted Date Diagnosed Date Neck pain with history of cervical spinal surger y 10/07/2024 C. difficile diarrhea 09/09/2024 SBP (spontaneous bacterial peritonitis) 09/09/19 Assessment & Plan (09/08/2024 9:51 AM EDT): Para with fluid studies on adm suggestive of SBP Unfortunately, cx with no growth S/p 5 days ceftriaxone Will start ppx cipro 500 mg daily C Diff Diarrhea 09/08/2024 Assessment & Plan (09/09/2024 12:42 PM EDT): Having upwards of 8 Bms daily despite holding lactulose since 09/05 With associated hypokalemia requiring aggressive repletion and significant bicarb loss -Enteric pathogen panel neg -C dif pending Assessment & Plan (09/08/2024 9:51 AM EDT): Having upwards of 8 Bms daily despite holding lactulose since 09/05 With associated hypokalemia requiring aggressive repletion and significant bicarb loss Will send C diff and enteric pathogen panel BRBPR (bright red blood per rectum) 09/07/2024 Assessment & Plan (09/09/2024 12:42 PM EDT): Reports bright red blood with several liquid bowel movements starting 4/6. Minimal blood in toilet was observed. Repeat CBC yesterday pm stable. Pt reports history of hemorrhoid and intermittent bleeding. No pain reported Assessment & Plan (09/08/2024 9:51 AM EDT): Reports bright red blood with several liquid bowel movements starting 4/6. Minimal blood in toilet was observed. Repeat CBC yesterday pm stable. Pt reports history of hemorrhoid and intermittent bleeding. No pain reported Assessment & Plan (09/07/2024 7:07 AM EDT): Reports bright red blood with several liquid bowel movements starting 4/6. Minimal blood in toilet was observed. Repeat CBC yesterday pm stable. Pt reports history of hemorrhoid and intermittent bleeding. No pain reported Anemia 09/05/2024 Assessment & Plan (09/09/2024 12:42 PM EDT): Hgb 8.0 today, down from 11.9 earlier this admission. Did report some bright red blood in stool as below. Denies symptoms of anemia including SOB, weakness. - CTM with daily CBC - Monitor for signs/symptoms of bleeding Assessment & Plan (09/08/2024 9:51 AM EDT): Hgb 8.0 today, down from 11.9 earlier this admission. Did report some bright red blood in stool as below. Denies symptoms of anemia including SOB, weakness. - CTM with daily CBC - Monitor for signs/symptoms of bleeding Assessment & Plan (09/07/2024 7:07 AM EDT): Hgb 7.4 today, down from 11.9 earlier this admission. Did report some bright red blood in stool as below. Denies symptoms of anemia including SOB, weakness. - CTM with daily CBC - Monitor for signs/symptoms of bleeding Assessment & Plan (09/06/2024 11:10 AM EDT): Hgb today stable at 8.2, down from 11.9 earlier this admission. Did have some bright red blood in stool this am. - CTM with daily CBC - Monitor for signs/symptoms of bleeding Assessment & Plan (09/05/2024 2:50 PM EDT): Hgb today 7.6, down from 11.9 earlier this admission. Denies melena or bloody stools. Did have para yesterday, but exam is not consistent with blood in abdomen. Suspect some element of dilution, though would not likely explain this large of a drop - CTM with daily CBC - Monitor for signs/symptoms of bleeding Abdominal pain 09/03/2024 Assessment & Plan (09/09/2024 12:42 PM EDT): Hyperacute onset while asleep 1hr prior to [...] -Plan for repeat para w IR tomorrow Assessment & Plan (09/08/2024 9:51 AM EDT): Hyperacute onset while asleep 1hr prior to [...] Re-consulted IR today for repeat therapeutic para Assessment & Plan (09/07/2024 10:06 AM EDT): Hyperacute onset while asleep 1hr prior to [...] mental status worsens - Stop home tramadol Assessment & Plan (09/06/2024 11:10 AM EDT): Hyperacute onset while asleep 1hr prior to [...] mental status worsens - Stop home tramadol Assessment & Plan (09/05/2024 2:50 PM EDT): Hyperacute onset while asleep 1hr prior to [...] mental status worsens - Stop home tramadol Assessment & Plan (09/04/2024 10:43 AM EDT): Hyperacute onset while asleep 1hr prior to [...] mental status worsens - Stop home tramadol Assessment & Plan (09/03/2024 12:34 PM EDT): Hyperacute onset while asleep 1hr prior to [...] medications for now due to AMS Hypokalemia 09/03/2024 Assessment & Plan (09/09/2024 12:42 PM EDT): Acute on chronic. Likely due to continued GI losses. 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 K 3.5 today - Cont to monitor, replete prn Assessment & Plan (09/08/2024 9:51 AM EDT): Acute on chronic. Likely due to continued GI losses. 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 K 3.3 today - Replete K - Recheck pm RFP Assessment & Plan (09/07/2024 10:06 AM EDT): Acute on chronic. Likely due to continued GI losses. 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 K 3.2 today - Replace PRN - Recheck pm RFP Assessment & Plan (09/06/2024 11:10 AM EDT): Acute on chronic. Possible due to continued GI losses. 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 Patient with large amount BM yesterday, K 3.1 today - Replace PRN - Recheck pm RFP Assessment & Plan (09/05/2024 2:50 PM EDT): Acute on chronic. Possible due to continued GI losses. 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 Improving. - Replace PRN, space BMPs to BID Assessment & Plan (09/04/2024 10:43 AM EDT): Acute on chronic. Possible due to continued GI losses. 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 Improving. - Replace PRN, space BMPs to BID Assessment & Plan (09/03/2024 12:34 PM EDT): Acute on chronic. Possible due to continued GI losses. 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 - Replace IV and PO, trend BMP q4h, urine lytes CKD (chronic kidney disease) stage 4, GFR 15-29 ml/min 09/03/2024 Assessment & Plan (09/09/2024 12:42 PM EDT): As above for NADIYA Assessment & Plan (09/08/2024 9:51 AM EDT): As above for NADIYA Assessment & Plan (09/07/2024 7:07 AM EDT): As above for NADIYA Assessment & Plan (09/06/2024 11:10 AM EDT): As above for NADIYA Assessment & Plan (09/05/2024 2:50 PM EDT): As above for NADIYA Assessment & Plan (09/04/2024 10:43 AM EDT): As above for NADIYA Assessment & Plan (09/03/2024 12:34 PM EDT): Admit Cr 3.01, 3.26 on repeat (from 2.91 on 09/02, recent BL 2.7-3.0). - Cont home sodium bicarb 1300mg TID - Albumin challenge given uptrending Cr Metabolic acidosis with norm al anion gap and bicarbonate losses 09/03/2024 Assessment & Plan (09/07/2024 7:07 AM EDT): As above for CKD. Assessment & Plan (09/06/2024 11:10 AM EDT): As above for CKD. Assessment & Plan (09/05/2024 2:50 PM EDT): As above for CKD. Assessment & Plan (09/04/2024 10:43 AM EDT): As above for CKD. Assessment & Plan (09/03/2024 11:42 AM EDT): As above for CKD. GERD (gastroesophageal reflux disease) Assessment & Plan (09/09/2024 12:42 PM EDT): - Cont home PPI Assessment & Plan (09/08/2024 9:51 AM EDT): - Cont home PPI Assessment & Plan (09/07/2024 7:07 AM EDT): - Cont home PPI Assessment & Plan (09/06/2024 11:10 AM EDT): - Cont home PPI Assessment & Plan (09/05/2024 2:50 PM EDT): - Cont home PPI Assessment & Plan (09/04/2024 10:43 AM EDT): - Cont home PPI Assessment & Plan (09/03/2024 12:34 PM EDT): - Cont home PPI Hypothyroidism 09/03/2024 Assessment & Plan (09/09/2024 12:42 PM EDT): - Cont home levothyroxine Assessment & Plan (09/08/2024 9:51 AM EDT): - Cont home levothyroxine Assessment & Plan (09/07/2024 7:07 AM EDT): - Cont home levothyroxine Assessment & Plan (09/06/2024 11:10 AM EDT): - Cont home levothyroxine Assessment & Plan (09/05/2024 2:50 PM EDT): - Cont home levothyroxine Assessment & Plan (09/04/2024 10:43 AM EDT): - Cont home levothyroxine Assessment & Plan (09/03/2024 12:34 PM EDT): - Cont home levothyroxine Itching 09/03/2024 Assessment & Plan (09/09/2024 12:42 PM EDT): - Cont home cholestyramine - Cont ursodiol Assessment & Plan (09/08/2024 9:51 AM EDT): - Cont home cholestyramine - Cont ursodiol Assessment & Plan (09/07/2024 7:07 AM EDT): - Cont home cholestyramine - Cont ursodiol Assessment & Plan (09/06/2024 11:10 AM EDT): - Cont home cholestyramine - Cont ursodiol Assessment & Plan (09/05/2024 2:50 PM EDT): - Cont home cholestyramine Assessment & Plan (09/04/2024 10:43 AM EDT): - Cont home cholestyramine Assessment & Plan (09/03/2024 12:34 PM EDT): - Cont home cholestyramine Renal mass, left 08/18/2024 Assessment & Plan (09/09/2024 12:42 PM EDT): 3-4 cm Bosniak 4 comlex and solid cystic renal mass in left kidney. Had cryoablation w/ IR 10/2022. 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 Needs outpatient MRI abd on discharge as part of transplant workup. Assessment & Plan (09/08/2024 9:51 AM EDT): 3-4 cm Bosniak 4 comlex and solid cystic renal mass in left kidney. Had cryoablation w/ IR 10/2022. 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 Needs outpatient MRI abd on discharge as part of transplant workup. Assessment & Plan (09/07/2024 7:07 AM EDT): 3-4 cm Bosniak 4 comlex and solid cystic renal mass in left kidney. Had cryoablation w/ IR 10/2022. 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 Follow-up outpt urology. Assessment & Plan (09/06/2024 11:10 AM EDT): 3-4 cm Bosniak 4 comlex and solid cystic renal mass in left kidney. Had cryoablation w/ IR 10/2022. 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 Follow-up outpt urology. Assessment & Plan (09/05/2024 2:50 PM EDT): 3-4 cm Bosniak 4 comlex and solid cystic renal mass in left kidney. Had cryoablation w/ IR 10/2022. 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 Follow-up outpt urology. Assessment & Plan (09/04/2024 10:43 AM EDT): 3-4 cm Bosniak 4 comlex and solid cystic renal mass in left kidney. Had cryoablation w/ IR 10/2022. 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 Follow-up outpt urology. Assessment & Plan (09/03/2024 12:34 PM EDT): 3-4 cm Bosniak 4 comlex and solid cystic renal mass in left kidney. Had cryoablation w/ IR 10/2022. 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 Follow-up outpt urology. Alcohol use disorder 07/26/2024 Assessment & Plan (09/09/2024 12:42 PM EDT): Last use 06/2024 (admitted for EtOH hepatitis). - Peth negative - Cont home folic acid - PO thiamine supp Assessment & Plan (09/08/2024 9:51 AM EDT): Last use 06/2024 (admitted for EtOH hepatitis). - Peth negative - Cont home folic acid - PO thiamine supp Assessment & Plan (09/07/2024 10:06 AM EDT): Last use 06/2024 (admitted for EtOH hepatitis). - Peth negative - Cont home folic acid - PO thiamine supp Assessment & Plan (09/06/2024 11:10 AM EDT): Last use 06/2024 (admitted for EtOH hepatitis). - Peth negative - Cont home folic acid - Cont empiric IV thiamine 200mg q8h x2d, then taper Assessment & Plan (09/05/2024 2:50 PM EDT): Last use 06/2024 (admitted for EtOH hepatitis). - Pending Peth - Cont home folic acid - Cont empiric IV thiamine 200mg q8h x2d, then taper Assessment & Plan (09/04/2024 10:43 AM EDT): Last use 06/2024 (admitted for EtOH hepatitis). - Pending Peth - Cont home folic acid - Cont empiric IV thiamine 200mg q8h x2d, then taper Assessment & Plan (09/03/2024 11:42 AM EDT): Last use 06/2024 (admitted for EtOH hepatitis). - Pending Peth - Cont home folic acid - Start empiric IV thiamine 200mg q8h x2d Metabolic encephalopathy 07/26/2024 Assessment & Plan (09/07/2024 10:06 AM EDT): Likely multifactorial from HE and morphine I/s/o CKD. UA not c/f infxn. TSH, VBG, CXR unremarkable; deferred CTH. Improving. - Treatment of infection as above - Delirium precautions Assessment & Plan (09/06/2024 11:10 AM EDT): Likely multifactorial from HE and morphine I/s/o CKD. UA not c/f infxn. TSH, VBG, CXR unremarkable; deferred CTH. Improving. - BCx 09/03 NGTD - Treatment of infection as above - Delirium precautions Assessment & Plan (09/05/2024 2:50 PM EDT): Likely multifactorial from HE and morphine I/s/o CKD. UA not c/f infxn. TSH, VBG, CXR unremarkable; deferred CTH. Improving. - BCx 09/03 NGTD - Cont CTX 09/03-09/04, consider d/c given BCx NGTD and low c/f infxn otherwise - Delirium precautions Assessment & Plan (09/05/2024 12:44 AM EDT): Likely multifactorial from HE and morphine I/s/o CKD. UA not c/f infxn. TSH, VBG, CXR unremarkable; deferred CTH. Improving. - BCx 09/03 NGTD - Cont CTX 09/03-09/04, consider d/c given BCx NGTD and low c/f infxn otherwise - Delirium precautions Assessment & Plan (09/03/2024 12:34 PM EDT): Likely multifactorial from HE and morphine I/s/o CKD. UA not c/f infxn. - Check TSH, VBG, CXR; defer CTH for now - Follow-up BCx 09/03 - Delirium precautions Other hyperlipidemia 07/26/2024 Assessment & Plan (09/09/2024 12:42 PM EDT): No meds Assessment & Plan (09/08/2024 9:51 AM EDT): No meds Assessment & Plan (09/07/2024 7:07 AM EDT): No meds Assessment & Plan (09/06/2024 11:10 AM EDT): No meds Assessment & Plan (09/05/2024 2:50 PM EDT): No meds Assessment & Plan (09/04/2024 10:43 AM EDT): No meds Assessment & Plan (09/03/2024 11:42 AM EDT): No meds Decompensated cirrhosis 07/25/2024 Assessment & Plan (09/09/2024 12:42 PM EDT): Due to EtOH, h/o EtOH hepatitis 06/2024 [...] with SBP, s/p CTX x5d; will cont parts counterman ppx with Cipro 500mg daily - HE: [...] years Sex: Male at 09/09/2024 6:12 AM Assessment & Plan (09/08/2024 9:51 AM EDT): Due to EtOH, h/o EtOH hepatitis 06/2024 [...] years Sex: Male at 09/08/2024 4:05 AM Assessment & Plan (09/07/2024 10:06 AM EDT): Due to EtOH, h/o EtOH hepatitis 06/2024 [...] years Sex: Male at 09/07/2024 3:42 AM Assessment & Plan (09/06/2024 11:10 AM EDT): Due to EtOH, h/o EtOH hepatitis 06/2024 [...] years Sex: Male at 09/06/2024 4:30 AM Assessment & Plan (09/05/2024 2:50 PM EDT): Due to EtOH, h/o EtOH hepatitis 06/2024 [...] stopped octreotide 200 mcg (received 3 doses 09/03- 09/04), goal MAP>70 - Transplant: not eligible yet [...] years Sex: Male at 09/05/2024 7:24 AM Assessment & Plan (09/05/2024 12:44 AM EDT): Due to EtOH, h/o EtOH hepatitis 06/2024 s/p prednisolone. MELD as below. Hepatology following. - EV: EGD 07/29 w/ nonbleeding grade 1 and 2 varices, portal gastropathy w/ small spot of blood s/p APC - Ascites: para 4/16 for 4L, 09/03 1L; no diuretics due [...] cont midodine 15 mg TID, stop octreotide 200 mcg TID (received 3 doses 09/03-09/04), goal MAP>70 [...] years Sex: Male at 09/04/2024 5:22 AM Assessment & Plan (09/03/2024 12:34 PM EDT): Due to EtOH, h/o EtOH hepatitis 06/2024 [...] years Sex: Male at 09/03/2024 5:35 AM Acute kidney injury superimposed on CKD 07/26/19 25 Assessment & Plan (09/08/2024 9:51 AM EDT): Admit Cr 3.01 (from 2.91 on 09/02, recent BL 2.7-3.0), peak Cr 3.52, now improving. UA appears concentrated, no c/f obstruction on CT A/P. Treated as HRS initially given severity of CKD and cirrhosis, de-escalating tx as above. Renal consulted. - Cont home sodium bicarb 1300mg TID, consider additional bicarb pending pm renal (though will do so with caution given Na restriction) - Albumin challenge and octreotide/midodrine as above Assessment & Plan (09/07/2024 10:06 AM EDT): Admit Cr 3.01 (from 2.91 on 09/02, recent BL 2.7-3.0), peak Cr 3.52, now improving. UA appears concentrated, no c/f obstruction on CT A/P. Treated as HRS initially given severity of CKD and cirrhosis, de-escalating tx as above. Renal consulted. - Cont home sodium bicarb 1300mg TID, consider additional bicarb pending pm renal (though will do so with caution given Na restriction) - Albumin challenge and octreotide/midodrine as above Assessment & Plan (09/06/2024 11:10 AM EDT): Admit Cr 3.01 (from 2.91 on 09/02, recent BL 2.7-3.0), peak Cr 3.52, now improving. UA appears concentrated, no c/f obstruction on CT A/P. Treated as HRS initially given severity of CKD and cirrhosis, de-escalating tx as above. Renal consulted. - Cont home sodium bicarb 1300mg TID - Albumin challenge and octreotide/midodrine as above Assessment & Plan (09/05/2024 2:50 PM EDT): Admit Cr 3.01 (from 2.91 on 09/02, recent BL 2.7-3.0), peak Cr 3.52, now improving. UA appears concentrated, no c/f obstruction on CT A/P. Treated as HRS initially given severity of CKD and cirrhosis, de-escalating tx as above. Renal consulted. - Cont home sodium bicarb 1300mg TID - Albumin challenge and octreotide/midodrine as above - CTM bladder scans though may be inaccurate due to ascites, may require SC to r/o retention Assessment & Plan (09/05/2024 12:44 AM EDT): Admit Cr 3.01 (from 2.91 on 09/02, recent BL 2.7-3.0), peak Cr 3.52, now improving. UA appears concentrated, no c/f obstruction on CT A/P. Treated as HRS initially given severity of CKD and cirrhosis, de-escalating tx as above. Renal consulted. - Cont home sodium bicarb 1300mg TID - Albumin challenge and octreotide/midodrine as above - CTM bladder scans though may be inaccurate due to ascites, may require SC to r/o retention Hypertension Assessment & Plan (09/09/2024 12:42 PM EDT): No meds. Assessment & Plan (09/08/2024 9:51 AM EDT): No meds. Assessment & Plan (09/07/2024 7:07 AM EDT): No meds. Assessment & Plan (09/06/2024 11:10 AM EDT): No meds. Assessment & Plan (09/05/2024 2:50 PM EDT): No meds. Assessment & Plan (09/04/2024 10:43 AM EDT): No meds. Assessment & Plan (09/03/2024 11:42 AM EDT): No meds. Thrombocytopenia Assessment & Plan (09/09/2024 12:42 PM EDT): Due to cirrhosis. Assessment & Plan (09/08/2024 9:51 AM EDT): Due to cirrhosis. Assessment & Plan (09/07/2024 7:07 AM EDT): Due to cirrhosis. Assessment & Plan (09/06/2024 11:10 AM EDT): Due to cirrhosis. Assessment & Plan (09/05/2024 2:50 PM EDT): Due to cirrhosis. Assessment & Plan (09/04/2024 10:43 AM EDT): Due to cirrhosis. Assessment & Plan (09/03/2024 11:42 AM EDT): Due to cirrhosis. Resolved Problems Problem Noted Date Diagnosed Date Resolved Date Aphasia 10/06/2024 10/08/2024 Hepatorenal syndrome 07/25/2024 025 Encounters Date Type Department Care Team Description 10/17/2024 Pharmacy Services [facility] [address] [place] [id number] Ridge Menjivar [facility] 10/14/2024 8:42 AM EDT - 10/14/2024 9:27 AM EDT Surgery [facility] Cardiac Feed Crusher [address] [place], [place] [address] [address] Irving Matta MD Left Heart Cath 10/14/2024 Chart Note [facility] Kidney Transplant at [address] [phone] Dean Robles [facility] [id number] 10/10/2024 12:01 PM EDT Anesthesia Event [facility] ENDOSCOPY [address] [place] [address] Cady Bhat MD Nguyen, Quinn, MD 10/10/2024 10:36 AM EDT - 10/10/2024 11:06 AM EDT Surgery [facility] ENDOSCOPY [facility] [place] [address] Lino Soto MD EGD 10/09/2024 Social Work [facility] Liver Transplant at [address] [place] [address] Kaylin Willard MSW 10/09/2024 Chart Note [facility] Kidney Transplant at [address] [place] [address] Dean Robles [facility] [phone] call from Elle the R fx [phone] 10/09/2024 Chart Note [facility] Kidney Transplant at [address] [address] Dean Robles [facility] [id number] 10/07/2024 Chart Note [facility] Liver Transplant at [address] [phone] Mary Butler, RN Spoke with Blair Anderson today for evaluation for a combined liver and 10/07/2024 Chart Note [facility] Kidney Transplant at [address] [address] Anny Cote, RN Received notice of in house evaluation. Message to nephrology 10/07/2024 Chart Note [facility] Kidney Transplant at [address] [address] Chey Nicole MA This MA received new referral for PT. Raul NICHOLSA once financially cleared. 10/07/2024 Chart Note [facility] Kidney Transplant at [address] [phone] Anny Cote RN Simultaneous Liver-Kidney Transplant Referral 10/06/2024 Travel 10/05/2024 11:12 PM EDT - 10/17/2024 10:29 AM EDT Hospital Encounter [facility] 8E [address] [place] [phone] Gómez Blanchard MD Wood, MD Eber Fonseca Stephanie, MD Alcoholic cirrhosis of liver with ascites (CMS-HCC) [...] or Self Care WITHOUT Home Care Services 10/05/2024 Telephone [facility] [address] [place], [place] [phone] Unknown, Attending Provider After Hours Call 10/01/2024 Telephone [facility] Liver Transplant at [address] [place] [address] Armand Salinas RN 09/30/2024 Social Work [facility] Liver Transplant at [address] [phone] Kaylin Willard MSW 09/29/2024 11:00 AM EDT Office Visit [facility] Psychiatry Transplant at [address] [place] [address] Lizeth Warren PsyD PTSD (post-traumatic stress disorder) (Primary Dx); Alcohol use disorder 09/26/2024 Abstract [facility] Gastroenterology at [facility] [address] [facility] [address] [place] [phone] Gerri Peterson MD 09/25/2024 11:25 AM EDT [facility] [address] [place] [phone] Gerri Peterson MD Cirrhosis of liver with ascites, unspecified hepatic cirrhosis type (CMS-HCC); Pre-transplant evaluation for chronic liver disease; Alcoholic cirrhosis of liver without ascites (CMS-HCC) 09/25/2024 Social Work [facility] Liver Transplant at [address] [place] [address] Kaylin Willard MSW 09/25/2024 Telephone [facility] Interventional Radiology [address] [place] [phone] Thad De Leon Appointment 09/25/2024 Orders Only [facility] Liver Transplant at [address] [place] [address] [place] [phone] Mary Butler RN Pre-transplant evaluation for chronic liver disease (Primary Dx); Alcoholic cirrhosis of liver without ascites (CMS-HCC) 09/24/2024 Orders Only [facility] Gastroenterology at [facility] [address] [facility] [address] [place] [phone] Gerri Peterson MD Cirrhosis of liver with ascites, unspecified hepatic cirrhosis type (CMS-HCC) (Primary Dx) 09/24/2024 Orders Only [facility] Gastroenterology at [facility] [address] [facility] [address] [place] [phone] Gerri Peterson MD Cirrhosis of liver with ascites, unspecified hepatic cirrhosis type (CMS-HCC) (Primary Dx) 09/23/2024 Telephone [facility] Gastroenterology at [facility] [address] [facility] [address] [place] [phone] Gerri Peterson MD Orders (Order Clarification Request/) 09/22/2024 Telephone [facility] Gastroenterology at [facility] [address] [facility] [address] [place] [phone] Gerri Peterson MD Orders (Order Clarification Request ) 09/17/2024 Telephone [facility] Liver Transplant at [address] [place] [address] [place] [phone] Kaylin Willard, NUBIA 09/17/2024 Abstract [facility] Gastroenterology at [facility] [address] [facility] [place] [address] [place] [phone] Gerri Peterson MD 09/17/2024 Telephone [facility] Liver Transplant at [facility] [address] [facility] [address] [place] [phone] Kaylin Willard MSW 09/16/2024 Telephone [facility] Gastroenterology at [facility] [address] [facility] [address] [place] [phone] Gerri Peterson MD Medical Management (Plan of Care Inquiry/Question ) 09/10/2024 Telephone [facility] Liver Transplant at [place] [id number] [facility] [address] [place] [phone] Kaylin Willard MSW 09/05/2024 Orders Only [facility] Gastroenterology at [facility] [address] [facility] [address] [place] [phone] Chris Orosco MD Cirrhosis of liver with ascites, unspecified hepatic cirrhosis type (CMS-HCC) (Primary Dx) 09/05/2024 Travel 09/03/2024 4:56 AM EDT - 09/09/2024 6:25 PM EDT Hospital Encounter [facility] [address]E [address] [place] [phone] Ana Maria Ramey MD Zackary, Joseph, MD Morgenlander, Adam M, MD Liebler, Hillary, MD Stickles, Allison Michele, MD Alcoholic cirrhosis of liver with ascites (CMS-HCC) (Primary Dx); Abdominal pain, unspecified abdominal location; NADIYA (acute kidney injury) (CMS-HCC) [N17.9] Discharge Disposition: Home or Self Care WITHOUT Home Care Services 09/03/2024 Telephone [facility] Interventional Radiology [address] [place] [phone] Thad De Leon Appointment 09/02/2024 4:00 PM EDT [facility] [address] [facility] [place] [address] [place] [phone] Doron Botello MD Alcoholic cirrhosis of liver without ascites (CMS-HCC); Cirrhosis of liver with ascites, unspecified hepatic cirrhosis type (CMS-HCC) 09/02/2024 2:40 PM EDT Office Visit [facility] Gastroenterology at [facility] [address] [facility] [address] [place] [phone] Gerri Peterson MD Cirrhosis of liver with ascites, unspecified hepatic cirrhosis type (CMS-HCC) (Primary Dx); Alcoholic cirrhosis of liver without ascites (CMS-HCC) 09/02/2024 Orders Only [facility] [address] [place], [place] [phone] Noé Giordano MD Hypokalemia (Primary Dx) 09/02/2024 Telephone [facility] [address] [place] [address] Unknown, Attending Provider After Hours Call 09/02/2024 Orders Only [facility] Liver Transplant at [address] [place] [phone] Mary Butler, RN Pre-transplant evaluation for chronic liver disease (Primary Dx); Alcoholic cirrhosis of liver without ascites (CMS-HCC) 09/02/2024 Telephone [facility] Gastroenterology at [facility] [address] [facility] [address] [place] [phone] Gerri Peterson MD Orders (Order Request (New) ) 09/02/2024 Telephone [facility] Gastroenterology at [facility] [address] [facility] [address] [place] [phone] Chris Orosco MD 08/20/2024 Telephone [facility] Liver Transplant at [address] [place] [phone] Kaylin Willard MSW 08/15/2024 Chart Note [facility] Kidney Transplant at [address] [place] [phone] Dean Robles [facility] [address] 08/13/2024 Chart Note [facility] Liver Transplant at [address] [phone] Mary Butler, RN Outpatient liver transplant referral received from Dr Maza. Referral 08/12/2024 6:12 PM EDT - 08/19/2024 12:56 PM EDT Hospital Encounter [facility] [address]E [address] [place] [phone] MD [place], MD Jf Day Peter, MD Ahmad, Yousef, MD Ayoub, Bassam Y, MD Clark, Leeanna Jaime MD Chronic liver failure without hepatic coma (CMS-HCC) (Primary Dx); Decompensated cirrhosis (CMS-HCC); NADIYA (acute kidney injury) (CMS-HCC); Hypotension, unspecified hypotension type; Hepatorenal syndrome (CMS-HCC); Shock (CMS-HCC); Acute metabolic encephalopathy Discharge Disposition: Home WITH Home Health Care Services 08/12/2024 Travel 07/25/2024 6:59 PM EDT - 07/29/2024 2:12 PM EDT Hospital Encounter [facility] [address]NW [address] [place] [phone] Melissa Zuleta MD Krause, Julie A, MD Martinez, Juan Fernando, MD Jaundice (Primary Dx); Alcoholic cirrhosis of liver without ascites (CMS-HCC) Discharge Disposition: Home or Self Care WITHOUT Home Care Services 07/25/2024 Travel 07/24/2024 Telephone [facility] Liver Transplant at [address] [phone] Chinedu Steve MA from Last 3 Months Social History Tobacco Use Types Packs/Day Years Used Date Smoking Tobacco: Former Cigarettes Smokeless Tobacco: Current Alcohol Use Standard Drinks/Week Comments Yes 0 (1 standard drink = 0.6 oz pure alcohol) History of alcohol abuse, reports no use in 3 week- typically endorses use as 4 glasses of wine a days Utilities Answer Date Recorded In the past 12 months has th e [employer], gas, oil, or water company threatened to [...] in the past 12 m [facility], were you homeless or living [...] Mass Index 32.07 10/10/2024 6:54 AM EDT Plan of Treatment Upcoming Encounters Date Type Department Care Team (Late st Contact Info) Description 12/05/2024 8:01 AM EDT Hospital Encounter [facility] ENDOSCOPY [address] [place] [phone] Chris Orosco MD [address] [place] [phone] 12/05/2024 8:01 AM EDT - 12/05/2024 8:31 AM EDT Surgery [facility] ENDOSCOPY [address] [place] [phone] Chris Orosco MD [address] [place] [phone] EGD Scheduled Procedures Name Priority Associated Diagnoses Date/Ti me EGD Cirrhosis of liver with ascites, unspecified hepatic cirrhosis type (CMS-HCC) 12/05/2024 8:01 AM EDT Health Maintenance Due Date Last Done Comments ASCVD Assessment 1983 Tobacco Cessation Readiness 1983 Immunization: Hepatitis A (1 of 2 - Risk 2-dose series) 2002 Immunization: Pneumococcal ( 1 of 2 - PCV) 2002 Immunization: Hepatitis B (2 of 3 - 19+ 3-dose series) 10/11/2010 09/13/2010 Immunization: COVID-19 ( season) 2024 03/17/2021, 07/25/2020, 06/27/2020 Depression Screening 09/29/2025 09/29/2024, 09/03/19 25 Alcohol Misuse Screening 10/05/2025 025, 09/03/2024, 08/12/2024, Additional history exists Thyroid Function/TSH (MyChart) 10/07/2025 0 10/07/2024, 10/06/2024, 09/03/2024 Diabetes Screening 10/08/2025 10/08/2024 Renal Function/GFR 10/17/2025 10/17/2024, 0 10/16/2024, 10/15/2024, Additional history exists Immunization: DTaP/Tdap/Td ( 3 - Td or Tdap) 06/03/2028 06/03/2018, 09/13/2010 Immunization: Influenza (MyChart) Completed 024, 03/12/2023 HIV Screening Completed 10/07/2024 Hepatitis C Screening (MyChart) Completed 10/07/2024, 10/06/2024, 09/03/2024, Additional history exists Procedures Procedure Name Priority Date/Time Associated Diagnosis Comments RENAL FUNCTION PANEL W/EGFR STAT 10/17/2024 5:48 AM EDT PROTIME-INR STAT 10/16/2024 6:31 AM EDT HEPATIC FUNCTION PANEL STAT 6:31 AM EDT MAGNESIUM STAT 10/16/2024 6:31 AM EDT RENAL FUNCTION PANEL W/EGFR STAT 10/16/2024 6:31 AM EDT CBC STAT 10/16/2024 6:31 AM EDT CARISA RHYTHM STRIP - SCAN 10/16/19 8:02 PM EDT CARISA RHYTHM STRIP - SCAN 10/16/19 8:02 PM EDT PREPARE PLATELETS, LEUKOREDUCED Routine 10/15/2024 6:16 AM EDT PREPARE FRESH FROZEN PLASMA Routine 10/15/2024 6:15 AM EDT PRA-HLA AB SCREEN (CYTOTOXIC) Routine 10/15/2024 6:08 AM EDT PROTIME-INR STAT 10/15/2024 6:08 AM EDT HEPATIC FUNCTION PANEL STAT 6:08 AM EDT MAGNESIUM STAT 10/15/2024 6:08 AM EDT RENAL FUNCTION PANEL W/EGFR STAT 10/15/2024 6:08 AM EDT CBC STAT 10/15/2024 6:08 AM EDT LEFT HEART CATH Routine 10/14/2024 2:09 PM EDT TRANSFUSE FRESH FROZEN PLASMA Routine 10/14/2024 1:15 PM EDT TRANSFUSE PLATELETS Routine 10/14/2024 9 :14 AM EDT ANTIBODY SCREEN Routine 10/14/2024 8:21 AM EDT ABO/RH Routine 10/14/2024 8:21 AM EDT PROTIME-INR STAT 10/14/2024 2:53 AM EDT HEPATIC FUNCTION PANEL STAT 2:53 AM EDT MAGNESIUM STAT 10/14/2024 2:53 AM EDT RENAL FUNCTION PANEL W/EGFR STAT 10/14/2024 2:53 AM EDT CBC STAT 10/14/2024 2:53 AM EDT CARDIAC CATH DOCUMENTS SCAN 10/14/2024 2:06 AM EDT MRI ABDOMEN W AND WO CONTRAST Routine 10/13/2024 11:49 PM EDT AMMONIA Routine 10/13/2024 5:35 AM EDT PROTIME-INR STAT 10/13/2024 5:35 AM EDT HEPATIC FUNCTION PANEL STAT 5:35 AM EDT MAGNESIUM STAT 10/13/2024 5:35 AM EDT RENAL FUNCTION PANEL W/EGFR STAT 10/13/2024 5:35 AM EDT CBC STAT 10/13/2024 5:35 AM EDT CARISA RHYTHM STRIP - SCAN 10/13/19 25 10:30 PM EDT PROTIME-INR STAT 10/12/2024 5:44 AM EDT HEPATIC FUNCTION PANEL STAT 5:44 AM EDT MAGNESIUM STAT 10/12/2024 5:44 AM EDT RENAL FUNCTION PANEL W/EGFR STAT 10/12/2024 5:44 AM EDT CBC STAT 10/12/2024 5:44 AM EDT CARISA RHYTHM STRIP - SCAN 10/12/19 25 10:04 PM EDT VANCOMYCIN, RANDOM Routine 10/11/2024 3: 02 AM EDT PROTIME-INR STAT 10/11/2024 3:02 AM EDT HEPATIC FUNCTION PANEL STAT 3:02 AM EDT MAGNESIUM STAT 10/11/2024 3:02 AM EDT RENAL FUNCTION PANEL W/EGFR STAT 10/11/2024 3:02 AM EDT CBC STAT 10/11/2024 3:02 AM EDT IR PARACENTESIS INCLUDING IMAGING GUIDANCE Routine 10/10/2024 3:13 PM EDT STRESS TESTING LAB - SCAN 2024 3:08 PM EDT BODY FLUID CELL COUNT Routine 10/10/2024 1:51 PM EDT Cirrhosis of liver with ascites, unspecified hepatic cirrhosis type (CMS-HCC) BODY FLUID CULTURE PLUS STAIN Routine 10/10/2024 1:51 PM EDT Cirrhosis of liver with ascites, unspecified hepatic cirrhosis type (CMS-HCC) EGD EGD/Sm Bowel 10/10/2024 12:00 PM EDT Alcoholic cirrhosis of liver with ascites (CMS-HCC) UPPER GI ENDOSCOPY Routine 10/10/2024 11:48 AM EDT VANCOMYCIN, RANDOM Routine 10/10/2024 5: 23 AM EDT PROTIME-INR STAT 10/10/2024 5:23 AM EDT HEPATIC FUNCTION PANEL STAT 5:23 AM EDT MAGNESIUM STAT 10/10/2024 5:23 AM EDT RENAL FUNCTION PANEL W/EGFR STAT 10/10/2024 5:23 AM EDT CBC STAT 10/10/2024 5:23 AM EDT ECHO STRESS W/ CONTRAST STAT 10/10/19 4:37 PM EDT RENAL FUNCTION PANEL W/EGFR STAT 10/09/2024 1:05 PM EDT RENAL FUNCTION PANEL W/EGFR STAT 10/09/2024 8:14 AM EDT PREPARE RBC, LEUKOREDUCED Routine 2024 6:16 AM EDT RENAL TX RECIPIENT Routine 10/09/2024 4: 59 AM EDT VANCOMYCIN, RANDOM Routine 10/09/2024 4: 59 AM EDT PROTIME-INR STAT 10/09/2024 4:59 AM EDT HEPATIC FUNCTION PANEL STAT 4:59 AM EDT MAGNESIUM STAT 10/09/2024 4:59 AM EDT RENAL FUNCTION PANEL W/EGFR STAT 10/09/2024 4:59 AM EDT CBC STAT 10/09/2024 4:59 AM EDT CBC Routine 10/08/2024 5:52 PM EDT MMR(IGG) PANEL (MEASLES, MUMPS, RUBELLA) Routine 10/08/2024 10:25 AM EDT HEMOGLOBIN A1C Routine 10/08/2024 10:25 AM EDT VITAMIN D 25 HYDROXY Routine 10/08/2024 10:25 AM EDT IRON STUDIES Routine 10/08/2024 10:25 AM EDT FERRITIN Routine 10/08/2024 10:25 AM EDT QUANTIFERON TB2 AG Routine 10/08/2024 10:25 AM EDT QUANTIFERON TB1 AG Routine 10/08/2024 10:25 AM EDT QUANTIFERON NIL Routine 10/08/2024 10:25 AM EDT QUANTIFERON MITOGEN Routine 10/08/2024 10:25 AM EDT TRANSFUSE RED BLOOD CELLS Routine 2024 10:11 AM EDT ANTIBODY SCREEN Routine 10/08/2024 7:41 AM EDT ABO/RH Routine 10/08/2024 7:41 AM EDT RETICULOCYTE COUNT, AUTO Add-On 025 7:41 AM EDT HAPTOGLOBIN Routine 10/08/2024 7:41 AM EDT CBC Routine 10/08/2024 7:41 AM EDT LACTATE DEHYDROGENASE Add-On 10/08/2024 5:36 AM EDT VANCOMYCIN, RANDOM Routine 10/08/2024 5: 36 AM EDT PROTIME-INR STAT 10/08/2024 5:36 AM EDT HEPATIC FUNCTION PANEL STAT 5:36 AM EDT MAGNESIUM STAT 10/08/2024 5:36 AM EDT RENAL FUNCTION PANEL W/EGFR STAT 10/08/2024 5:36 AM EDT CBC STAT 10/08/2024 5:36 AM EDT URINE DRUG CONFIRMATION Routine 10/08/19 10:50 PM EDT URINE DRUG SCREEN REFLEX TO CONFIRMATION Routine 10/07/2024 10:50 PM EDT URINE DRUG COMPREHENSIVE PANEL, CONFIRMATION Routine 10/07/2024 10:50 PM EDT ENTERIC PATHOGEN PANEL Routine 10:50 PM EDT GIARDIA CRYPTOSPORIDIUM ANTIGENS Routine 10/07/2024 10:50 PM EDT OVA AND PARASITE COMPREHENSIVE W/ GIARDIA/CRYPTO Routine 10/07/2024 10:50 PM EDT HEPATITIS C ANTIBODY Routine 10/07/2024 6:38 PM EDT HEPATITIS B SURFACE ANTIBODY, QUANTITATIVE Routine 10/07/2024 6:38 PM EDT HEPATITIS B SURFACE ANTIGEN Routine 10/07/2024 6:38 PM EDT HEPATITIS A ANTIBODY TOTAL Routine 10/07/2024 6:38 PM EDT HEPATITIS A IGM Routine 10/07/2024 6:38 PM EDT ABO/RH Timed 10/07/2024 6:37 PM EDT ABO/RH Routine 10/07/2024 6:37 PM EDT LIPID PANEL Routine 10/07/2024 6:37 PM EDT [id number] (AAT) QUANTITATION & MUTATION Routine 10/07/2024 6:37 PM EDT CMV IGG ANTIBODY Routine 10/07/2024 6:37 PM EDT HIV 1+2 ANTIBODY/ANTIGEN WITH REFLEX Routine 10/07/2024 6:37 PM EDT TSH Routine 10/07/2024 6:37 PM EDT KATIE-WATKINS VIRUS EARLY ANTIGEN ANTIBODY, IGG Routine 10/07/2024 6:37 PM EDT VARICELLA ZOSTER ANTIBODY, IGG Routine 10/07/2024 6:37 PM EDT TOXOPLASMA GONDII ANTIBODY, IGG Routine 10/07/2024 6:37 PM EDT TREPONEMA PALLIDUM AB WITH REFLEX Routine 10/07/2024 6:37 PM EDT STRONGYLOIDES AB Routine 10/07/2024 6:37 PM EDT PHOSPHATIDYLETHANOL CONFIRMATION, B Routine 10/07/2024 6:37 PM EDT MMR(IGG) PANEL (MEASLES, MUMPS, RUBELLA) Routine 10/07/2024 6:37 PM EDT IGA Routine 10/07/2024 6:37 PM EDT ETHANOL, SERUM Routine 10/07/2024 6:37 PM EDT XR MANDIBLE MINIMUM 4-VIEWS Routine 10/07/2024 6:19 PM EDT US ABDOMEN COMPLETE Routine 10/07/2024 3 :48 PM EDT US DUPLEX [id number] COMPLETE Routine 10/07/2024 3:48 PM EDT CARISA RHYTHM STRIP - SCAN 10/08/19 3:30 PM EDT AFP TUMOR MARKER Routine 10/07/2024 6:00 AM EDT VANCOMYCIN, RANDOM Routine 10/07/2024 6: 00 AM EDT PROTIME-INR STAT 10/07/2024 6:00 AM EDT HEPATIC FUNCTION PANEL STAT 6:00 AM EDT MAGNESIUM STAT 10/07/2024 6:00 AM EDT RENAL FUNCTION PANEL W/EGFR STAT 10/07/2024 6:00 AM EDT CBC STAT 10/07/2024 6:00 AM EDT OSMOLALITY Routine 10/06/2024 2:[address] HEAD WO CONTRAST Routine 10/06/2024 1 :56 PM EDT CHLORIDE, URINE, RANDOM Routine 10/07/19 1:25 PM EDT POTASSIUM, URINE, RANDOM Routine 025 1:25 PM EDT SODIUM, URINE, RANDOM Routine 10/06/2024 1:25 PM EDT CREATININE, URINE, RANDOM Routine 2024 1:25 PM EDT OSMOLALITY, URINE Routine 10/06/2024 1:2 5 PM EDT URINE DRUG CONFIRMATION Routine 10/07/19 11:51 AM EDT URINE DRUG SCREEN REFLEX TO CONFIRMATION Routine 10/06/2024 11:51 AM EDT CHLORIDE, URINE, RANDOM Routine 10/07/19 11:51 AM EDT POTASSIUM, URINE, RANDOM Routine 025 11:51 AM EDT SODIUM, URINE, RANDOM Routine 10/06/2024 11:51 AM EDT URINALYSIS W/RFL TO MICROSCOPIC Routine 10/06/2024 11:51 AM EDT LACTIC ACID STAT 10/06/2024 7:38 AM EDT CBC STAT 10/06/2024 7:37 AM EDT COMPREHENSIVE METABOLIC PANEL STAT 10/06/2024 7:37 AM EDT VENOUS BLOOD GAS, LINE/SYRINGE STAT 10/06/2024 7:37 AM EDT VENOUS BLOOD GAS, LINE/SYRINGE STAT 10/06/2024 4:03 AM EDT PROTIME-INR Routine 10/06/2024 4:01 AM EDT HEPATIC FUNCTION PANEL Routine 4:01 AM EDT MAGNESIUM Routine 10/06/2024 4:01 AM EDT RENAL FUNCTION PANEL W/EGFR Routine 10/06/2024 4:01 AM EDT CBC Routine 10/06/2024 4:01 AM EDT HEPATITIS C ANTIBODY Routine 10/06/2024 4:01 AM EDT HEPATITIS B SURFACE ANTIBODY, QUANTITATIVE Routine 10/06/2024 4:01 AM EDT HEPATITIS B SURFACE ANTIGEN Routine 10/06/2024 4:01 AM EDT HEPATITIS A ANTIBODY TOTAL Routine 10/06/2024 4:01 AM EDT HEPATITIS A IGM Routine 10/06/2024 4:01 AM EDT SALICYLATE LEVEL Routine 10/06/2024 4:01 AM EDT AFP TUMOR MARKER Routine 10/06/2024 4:01 AM EDT UPPER RESPIRATORY VIRAL/BACTERIAL PANEL-HOSPITAL PHARMACY TECHNICIAN ONLY Routine 10/06/2024 3:12 AM EDT XR PORTABLE CHEST Routine 10/06/2024 1:1 6 AM EDT PHOSPHATIDYLETHANOL CONFIRMATION, B Routine 10/06/2024 1:04 AM EDT ACETAMINOPHEN LEVEL Routine 10/06/2024 1 :04 AM EDT ETHANOL, SERUM Routine 10/06/2024 1:04 AM EDT AMMONIA Routine 10/06/2024 1:04 AM EDT THYROID FUNCTION CASCADE Routine 025 1:04 AM EDT PROTIME-INR STAT 10/06/2024 1:04 AM EDT LACTIC ACID STAT 10/06/2024 1:04 AM EDT CBC STAT 10/06/2024 1:04 AM EDT COMPREHENSIVE METABOLIC PANEL STAT 10/06/2024 1:04 AM EDT BLOOD CULTURE-PERIPHERAL Routine 025 1:04 AM EDT BLOOD CULTURE-PERIPHERAL Routine 025 1:04 AM EDT URINE DRUG COMPREHENSIVE PANEL, CONFIRMATION Routine 09/25/2024 11:55 AM EDT Pre-transplant evaluation for chronic liver disease Alcoholic cirrhosis of liver without ascites (CMS-HCC) PHOSPHATIDYLETHANOL CONFIRMATION, B Routine 09/25/2024 11:55 AM [...] with ascites, unspecified hepatic cirrhosis type (CMS-HCC) DIFFERENTIAL Routine 09/16/2024 12:20 PM EDT GLUCOSE, RANDOM Routine 09/16/2024 12:20 PM EDT HEPATIC FUNCTION PANEL Routine 12:20 PM EDT RENAL FUNCTION PANEL W/O EGFR Routine 09/16/2024 12:20 PM EDT COMPREHENSIVE METABOLIC PANEL Routine 09/16/2024 12:20 PM EDT PROTIME-INR Routine 09/16/2024 12:20 PM EDT CBC Routine 09/16/2024 12:20 PM EDT CBC AND DIFFERENTIAL Routine 09/16/2024 12:20 PM EDT HEPATIC FUNCTION PANEL Routine 12:20 PM EDT RENAL FUNCTION PANEL, FASTING Routine 09/16/2024 12:20 PM EDT EKG - SCAN 09/10/2024 7:11 AM EDT BODY FLUID CULTURE PLUS STAIN Routine 09/09/2024 2:57 PM EDT BODY FLUID CELL COUNT STAT 09/09/2024 2:56 PM EDT ANAEROBIC CULTURE Routine 09/09/2024 2:5 6 PM EDT PARACENTESIS Routine 09/09/2024 2:19 PM EDT PROTIME-INR Routine 09/09/2024 6:12 AM EDT HEPATIC FUNCTION PANEL Routine 6:12 AM EDT CBC Routine 09/09/2024 6:12 AM EDT MAGNESIUM Routine 09/09/2024 6:12 AM EDT RENAL FUNCTION PANEL W/EGFR Routine 09/09/2024 6:12 AM EDT CLOSTRIDIUM DIFFICILE TOXIN A/B ANTIGEN Routine 09/09/2024 4:58 AM EDT ENTERIC PATHOGEN PANEL Routine 4:58 AM EDT CLOSTRIDIUM DIFFICILE DNA AMPLIFICATION Routine 09/09/2024 4:58 AM EDT RENAL FUNCTION PANEL W/EGFR Timed 09/08/2024 3:50 PM EDT RENAL FUNCTION PANEL W/EGFR Routine 09/08/2024 2:08 PM EDT HEPATIC FUNCTION PANEL Routine 4:05 AM EDT PROTIME-INR Routine 09/08/2024 4:05 AM EDT MAGNESIUM Routine 09/08/2024 4:05 AM EDT RENAL FUNCTION PANEL W/EGFR Routine 09/08/2024 4:05 AM EDT CBC Routine 09/08/2024 4:05 AM EDT RENAL FUNCTION PANEL W/EGFR Timed 09/07/2024 3:36 PM EDT PROTIME-INR Routine 09/07/2024 3:42 AM EDT HEPATIC FUNCTION PANEL Routine 3:42 AM EDT MAGNESIUM Routine 09/07/2024 3:42 AM EDT RENAL FUNCTION PANEL W/EGFR Routine 09/07/2024 3:42 AM EDT CBC Routine 09/07/2024 3:42 AM EDT CBC Routine 09/06/2024 4:37 PM EDT RENAL FUNCTION PANEL W/EGFR Timed 09/06/2024 4:37 PM EDT HEPATIC FUNCTION PANEL Routine 4:30 AM EDT PROTIME-INR Routine 09/06/2024 4:30 AM EDT MAGNESIUM Routine 09/06/2024 4:30 AM EDT RENAL FUNCTION PANEL W/EGFR Routine 09/06/2024 4:30 AM EDT CBC Routine 09/06/2024 4:30 AM EDT PROTIME-INR Routine 09/05/2024 7:24 AM EDT HEPATIC FUNCTION PANEL Routine 7:24 AM EDT PHOSPHORUS Routine 09/05/2024 7:24 AM EDT MAGNESIUM Routine 09/05/2024 7:24 AM EDT BASIC METABOLIC PANEL Routine 09/05/2024 7:24 AM EDT CBC Routine 09/05/2024 7:24 AM EDT ECG 12-LEAD (MUSE) Routine 09/05/2024 4: 57 AM EDT EKG - SCAN 09/05/2024 3:27 AM EDT CARISA RHYTHM STRIP - SCAN 09/05/19 11:22 PM EDT LACTIC ACID Timed 09/04/2024 4:21 PM EDT MAGNESIUM Timed 09/04/2024 4:21 PM EDT BASIC METABOLIC PANEL Timed 09/04/2024 4:21 PM EDT IR PARACENTESIS INCLUDING IMAGING GUIDANCE Routine 09/04/2024 3:55 PM EDT FLUID CREATININE Routine 09/04/2024 11:01 AM EDT ALBUMIN, FLUID Routine 09/04/2024 11:01 AM EDT PROTEIN, BODY FLUID Routine 09/04/2024 11:01 AM EDT BODY FLUID CELL COUNT Routine 09/04/2024 11:01 AM EDT BODY FLUID CULTURE PLUS STAIN Routine 09/04/2024 11:01 AM EDT AFP TUMOR MARKER Add-On 09/04/2024 10:32 AM EDT LIPASE Add-On 09/04/2024 5:22 AM EDT CALCIUM FREE, SERUM Routine 09/04/2024 5 :22 AM EDT PROTIME-INR Routine 09/04/2024 5:22 AM EDT PHOSPHORUS Routine 09/04/2024 5:22 AM EDT MAGNESIUM Routine 09/04/2024 5:22 AM EDT HEPATIC FUNCTION PANEL Routine 5:22 AM EDT BASIC METABOLIC PANEL Routine 09/04/2024 5:22 AM EDT CBC Routine 09/04/2024 5:22 AM EDT MAGNESIUM Timed 09/04/2024 2:20 AM EDT BASIC METABOLIC PANEL Timed 09/04/2024 2:20 AM EDT MAGNESIUM Timed 09/03/2024 9:50 PM EDT BASIC METABOLIC PANEL Timed 09/03/2024 9:50 PM EDT MAGNESIUM Timed 09/03/2024 6:16 PM EDT BASIC METABOLIC PANEL Timed 09/03/2024 6:16 PM EDT VENOUS BLOOD GAS, LINE/SYRINGE Timed 09/03/2024 5:26 PM EDT CBC Timed 09/03/2024 5:26 PM EDT URINE DRUG SCREEN WITHOUT CONFIRMATION, STAT Routine 09/03/2024 3:21 PM EDT VENOUS BLOOD GAS, LINE/SYRINGE Timed 09/03/2024 3:21 PM EDT UREA NITROGEN, URINE Add-On 09/03/2024 3:21 PM EDT SODIUM, URINE, RANDOM Add-On 09/03/2024 3:21 PM EDT POTASSIUM, URINE, RANDOM Add-On 025 3:21 PM EDT CREATININE, URINE, RANDOM Add-On 2024 3:21 PM EDT CHLORIDE, URINE, RANDOM Add-On 09/04/19 3:21 PM EDT MAGNESIUM Timed 09/03/2024 3:21 PM EDT BASIC METABOLIC PANEL Timed 09/03/2024 3:21 PM EDT MRSA/STAPH AUREUS DNA - DIAGNOSTIC TESTING FOR PNEUMONIA Routine 09/03/2024 3:21 PM EDT ETHANOL, SERUM Timed 09/03/2024 1:43 PM EDT T4, FREE Timed 09/03/2024 1:43 PM EDT TSH Routine 09/03/2024 1:43 PM EDT HEPATITIS B SURFACE ANTIGEN Routine 09/03/2024 1:43 PM EDT HEPATITIS B CORE IGM Routine 09/03/2024 1:43 PM EDT HEPATITIS A IGM Routine 09/03/2024 1:43 PM EDT HEPATITIS C ANTIBODY Routine 09/03/2024 1:43 PM EDT LACTIC ACID Timed 09/03/2024 1:43 PM EDT MAGNESIUM Timed 09/03/2024 1:43 PM EDT BASIC METABOLIC PANEL Timed 09/03/2024 1:43 PM EDT XR PORTABLE CHEST Routine 09/03/2024 1:1 9 PM EDT PHOSPHORUS STAT 09/03/2024 10:49 AM EDT MAGNESIUM STAT 09/03/2024 10:49 AM EDT BASIC METABOLIC PANEL STAT 09/03/2024 10:49 AM EDT US ABDOMEN COMPLETE STAT 09/03/2024 10:30 AM EDT US DUPLEX [id number]-[id number]-[id number] COMPLETE STAT 09/03/2024 10:30 AM EDT URINALYSIS, MICROSCOPIC STAT 09/04/19 10:28 AM EDT URINALYSIS-MACROSCOPIC W/REFLEX TO MICROSCOPIC STAT 09/03/2024 10:28 AM EDT BLOOD CULTURE-PERIPHERAL STAT 025 8:10 AM EDT LACTIC ACID, VENOUS, WHOLE BLOOD STAT 09/03/2024 7:55 AM EDT BLOOD CULTURE-PERIPHERAL STAT 025 7:55 AM EDT HIGH SENSITIVITY TROPONIN STAT 2024 7:18 AM EDT PARACENTESIS Routine 09/03/2024 7:01 AM EDT ALBUMIN, FLUID STAT 09/03/2024 6:46 AM EDT PROTEIN, BODY FLUID STAT 09/03/2024 6 :46 AM EDT BODY FLUID CELL COUNT STAT 09/03/2024 6:46 AM EDT BODY FLUID CULTURE PLUS STAIN STAT 09/03/2024 6:46 AM EDT XR PORTABLE CHEST TAMIR 09/03/2024 6:[address] ABDOMEN AND PELVIS WITH IV CONTRAST TAMIR 09/03/2024 5:57 AM EDT PROTIME-INR STAT 09/03/2024 5:35 AM EDT ED ECG 12-LEAD (MUSE) STAT 09/03/2024 5:32 AM EDT HIGH SENSITIVITY TROPONIN STAT 2024 5:29 AM EDT MAGNESIUM STAT 09/03/2024 5:29 AM EDT LIPASE STAT 09/03/2024 5:29 AM EDT HEPATIC FUNCTION PANEL STAT 5:29 AM EDT DIFFERENTIAL STAT 09/03/2024 5:29 AM EDT CBC STAT 09/03/2024 5:29 AM EDT BASIC METABOLIC PANEL STAT 09/03/2024 5:29 AM EDT AMMONIA Add-On 09/03/2024 5:25 AM EDT COMPREHENSIVE METABOLIC PANEL Routine 09/02/2024 5:00 PM EDT Cirrhosis of liver with ascites, unspecified hepatic cirrhosis type (CMS-HCC) CBC Routine 09/02/2024 5:00 PM EDT Cirrhosis of liver with ascites, unspecified hepatic cirrhosis type (CMS-HCC) PHOSPHATIDYLETHANOL CONFIRMATION, B Routine 09/02/2024 5:00 PM EDT Alcoholic cirrhosis of liver without ascites (CMS-HCC) PROTIME-INR Routine 09/02/2024 5:00 PM EDT Alcoholic cirrhosis of liver without ascites (CMS-HCC) HEPATIC FUNCTION PANEL Routine 5:00 PM EDT Alcoholic cirrhosis of liver without ascites (CMS-HCC) PHOSPHATIDYLETHANOL CONFIRMATION, B Routine 08/19/2024 9:45 AM EDT HEPATIC FUNCTION PANEL Routine 2:59 AM EDT CBC Routine 08/19/2024 2:59 AM EDT PROTIME-INR Routine 08/19/2024 2:59 AM EDT MAGNESIUM STAT 08/19/2024 2:59 AM EDT RENAL FUNCTION PANEL W/EGFR STAT 08/19/2024 2:59 AM EDT MAGNESIUM STAT 08/18/2024 11:01 PM EDT RENAL FUNCTION PANEL W/EGFR STAT 08/18/2024 11:01 PM EDT MAGNESIUM STAT 08/18/2024 3:17 PM EDT RENAL FUNCTION PANEL W/EGFR STAT 08/18/2024 3:17 PM EDT PHOSPHATIDYLETHANOL CONFIRMATION, B Routine 08/18/2024 9:59 AM EDT VENOUS BLOOD GAS, LINE/SYRINGE Routine 08/18/2024 4:58 AM EDT PROTIME-INR Routine 08/18/2024 4:57 AM EDT PHOSPHORUS Routine 08/18/2024 4:57 AM EDT HEPATIC FUNCTION PANEL Routine 4:57 AM EDT CBC Routine 08/18/2024 4:57 AM EDT MAGNESIUM STAT 08/18/2024 4:57 AM EDT RENAL FUNCTION PANEL W/EGFR STAT 08/18/2024 4:57 AM EDT MAGNESIUM STAT 08/17/2024 11:53 PM EDT RENAL FUNCTION PANEL W/EGFR STAT 08/17/2024 11:53 PM EDT MAGNESIUM STAT 08/17/2024 4:01 PM EDT RENAL FUNCTION PANEL W/EGFR STAT 08/17/2024 4:01 PM EDT AMMONIA Timed 08/17/2024 9:03 AM EDT HEPATIC FUNCTION PANEL Add-On 9:03 AM EDT CBC STAT 08/17/2024 6:47 AM EDT MAGNESIUM STAT 08/17/2024 6:47 AM EDT RENAL FUNCTION PANEL W/EGFR STAT 08/17/2024 6:47 AM EDT MAGNESIUM STAT 08/16/2024 11:31 PM EDT RENAL FUNCTION PANEL W/EGFR STAT 08/16/2024 11:31 PM EDT MAGNESIUM STAT 08/16/2024 5:19 PM EDT RENAL FUNCTION PANEL W/EGFR STAT 08/16/2024 5:19 PM EDT PROTIME-INR STAT 08/16/2024 8:49 AM EDT MAGNESIUM STAT 08/16/2024 8:49 AM EDT RENAL FUNCTION PANEL W/EGFR STAT 08/16/2024 8:49 AM EDT AMMONIA STAT 08/16/2024 7:18 AM EDT HEPATIC FUNCTION PANEL STAT 7:18 AM EDT MAGNESIUM STAT 08/16/2024 7:18 AM EDT RENAL FUNCTION PANEL W/EGFR STAT 08/16/2024 7:18 AM EDT CBC STAT 08/16/2024 7:18 AM EDT MAGNESIUM STAT 08/15/2024 10:41 PM EDT RENAL FUNCTION PANEL W/EGFR Routine 08/15/2024 10:41 PM EDT CARISA RHYTHM STRIP - SCAN 08/16/19 7:21 PM EDT MAGNESIUM STAT 08/15/2024 2:26 PM EDT RENAL FUNCTION PANEL W/EGFR Routine 08/15/2024 2:26 PM EDT CARISA RHYTHM STRIP - SCAN 08/16/19 1:05 PM EDT LIPASE Routine 08/15/2024 10:35 AM EDT PREPARE PLATELETS, LEUKOREDUCED Routine 08/15/2024 6:17 AM EDT MAGNESIUM STAT 08/15/2024 5:55 AM EDT AMMONIA Routine 08/15/2024 5:55 AM EDT PROTIME-INR Routine 08/15/2024 5:55 AM EDT HEPATIC FUNCTION PANEL Routine 5:55 AM EDT CBC Routine 08/15/2024 5:55 AM EDT RENAL FUNCTION PANEL W/EGFR Routine 08/15/2024 5:55 AM EDT MAGNESIUM Routine 08/14/2024 11:18 PM EDT RENAL FUNCTION PANEL W/EGFR Routine 08/14/2024 11:18 PM EDT CBC STAT 08/14/2024 3:37 PM EDT MAGNESIUM STAT 08/14/2024 3:37 PM EDT RENAL FUNCTION PANEL W/EGFR Routine 08/14/2024 3:37 PM EDT XR PORTABLE FEEDING TUBE X-RAY STAT 08/14/2024 2:11 PM EDT PARACENTESIS Routine 08/14/2024 2:05 PM EDT CARISA RHYTHM STRIP - SCAN 08/15/19 1:56 PM EDT TRIGLYCERIDES, BODY FLUIDS Routine 08/14/2024 12:31 PM EDT AMYLASE, BODY FLUID Routine 08/14/2024 12:31 PM EDT ALBUMIN, FLUID Routine 08/14/2024 12:31 PM EDT PROTEIN, BODY FLUID Routine 08/14/2024 12:31 PM EDT BODY FLUID CELL COUNT Routine 08/14/2024 12:31 PM EDT BODY FLUID CULTURE PLUS STAIN Routine 08/14/2024 12:31 PM EDT AMMONIA Routine 08/14/2024 9:33 AM EDT MAGNESIUM STAT 08/14/2024 9:33 AM EDT VENOUS BLOOD GAS, LINE/SYRINGE STAT 08/14/2024 9:28 AM EDT RENAL FUNCTION PANEL W/EGFR Routine 08/14/2024 5:53 AM EDT PROTIME-INR Routine 08/14/2024 5:53 AM EDT HEPATIC FUNCTION PANEL Routine 5:53 AM EDT MAGNESIUM Routine 08/14/2024 5:53 AM EDT CBC Routine 08/14/2024 5:53 AM EDT VENOUS BLOOD GAS, LINE/SYRINGE Routine 08/14/2024 3:15 AM EDT RENAL FUNCTION PANEL W/EGFR STAT 08/14/2024 2:03 AM EDT TRANSFUSE PLATELETS Routine 08/14/2024 1 :40 AM EDT ANTIBODY SCREEN Routine 08/14/2024 12:35 AM EDT ABO/RH Routine 08/14/2024 12:35 AM EDT CYTOLOGY, PERITONEAL FLUID Routine 08/14/2024 12:00 AM EDT CBC Routine 08/13/2024 8:07 PM EDT MAGNESIUM STAT 08/13/2024 8:07 PM EDT RENAL FUNCTION PANEL W/EGFR Routine 08/13/2024 8:07 PM EDT CARISA RHYTHM STRIP - SCAN 08/14/19 7:35 PM EDT XR PORTABLE CHEST STAT 08/13/2024 3:3 6 PM EDT VENOUS BLOOD GAS, LINE/SYRINGE STAT 08/13/2024 3:17 PM EDT US ABDOMEN COMPLETE STAT 08/13/2024 3 :03 PM EDT US DUPLEX [id number] COMPLETE Routine 08/13/2024 3:03 PM EDT CENTRAL LINE Routine 08/13/2024 1:37 PM EDT MAGNESIUM Routine 08/13/2024 12:48 PM EDT RENAL FUNCTION PANEL W/EGFR Routine 08/13/2024 12:48 PM EDT CARISA RHYTHM STRIP - SCAN 08/14/19 25 7:58 AM EDT URINALYSIS, MICROSCOPIC STAT 08/14/19 4:51 AM EDT LACTIC ACID Routine 08/13/2024 4:51 AM EDT UREA NITROGEN, URINE Routine 08/13/2024 4:51 AM EDT CREATININE, URINE, RANDOM Routine 2024 4:51 AM EDT SODIUM, URINE, RANDOM Routine 08/13/2024 4:51 AM EDT PROTIME-INR Routine 08/13/2024 4:51 AM EDT HEPATIC FUNCTION PANEL Routine 4:51 AM EDT MAGNESIUM Routine 08/13/2024 4:51 AM EDT RENAL FUNCTION PANEL W/EGFR Routine 08/13/2024 4:51 AM EDT DIFFERENTIAL Routine 08/13/2024 4:51 AM EDT CBC Routine 08/13/2024 4:51 AM EDT URINALYSIS-MACROSCOPIC W/REFLEX TO MICROSCOPIC STAT 08/13/2024 4:51 AM EDT CARISA RHYTHM STRIP - SCAN 08/14/19 12:26 AM EDT CBC STAT 08/13/2024 12:08 AM EDT HEPATIC FUNCTION PANEL STAT 12:08 AM EDT PROTIME-INR STAT 08/13/2024 12:08 AM EDT MAGNESIUM STAT 08/13/2024 12:08 AM EDT PHOSPHORUS STAT 08/13/2024 12:08 AM EDT LACTIC ACID, VENOUS, WHOLE BLOOD STAT 08/12/2024 11:32 PM EDT VENOUS BLOOD GAS, LINE/SYRINGE STAT 08/12/2024 11:32 PM EDT RENAL FUNCTION PANEL W/EGFR STAT 08/12/2024 10:52 PM EDT BLOOD CULTURE-PERIPHERAL STAT 025 8:21 PM EDT BLOOD CULTURE-PERIPHERAL STAT 025 7:57 PM EDT BEDSIDE FOCUSED TRANSTHORACIC ECHO Routine 08/12/2024 7:08 PM EDT AMMONIA STAT 08/12/2024 6:51 PM EDT XR PORTABLE CHEST TAMIR 08/12/2024 6:46 PM EDT BEDSIDE FAST ULTRASOUND ABDOMEN Routine 08/12/2024 6:34 PM EDT PROTIME-INR STAT 08/12/2024 6:29 PM EDT VENOUS BLOOD GAS, LINE/SYRINGE STAT 08/12/2024 6:29 PM EDT LACTIC ACID, VENOUS, WHOLE BLOOD STAT 08/12/2024 6:29 PM EDT HEPATIC FUNCTION PANEL STAT 6:29 PM EDT DIFFERENTIAL STAT 08/12/2024 6:29 PM EDT CBC STAT 08/12/2024 6:29 PM EDT BASIC METABOLIC PANEL STAT 08/12/2024 6:29 PM EDT US ABDOMEN LIMITED Routine 07/29/2024 8: 54 AM EDT US DUPLEX [id number] COMPLETE Routine 07/29/2024 8:54 AM EDT SODIUM, URINE, RANDOM Routine 07/29/2024 4:39 AM EDT CBC Routine 07/29/2024 3:43 AM EDT RENAL FUNCTION PANEL W/EGFR Routine 07/29/2024 3:43 AM EDT HEPATIC FUNCTION PANEL Routine 3:43 AM EDT PROTIME-INR Routine 07/29/2024 3:43 AM EDT US RETROPERITONEAL COMPLETE Routine 07/28/2024 7:15 AM EDT MAGNESIUM Routine 07/28/2024 5:32 AM EDT RENAL FUNCTION PANEL W/EGFR Routine 07/28/2024 5:32 AM EDT HEPATIC FUNCTION PANEL Routine 5:32 AM EDT PROTIME-INR Routine 07/28/2024 5:32 AM EDT CBC Routine 07/28/2024 5:32 AM EDT MAGNESIUM Routine 07/27/2024 5:24 AM EDT CBC Routine 07/27/2024 5:24 AM EDT RENAL FUNCTION PANEL W/EGFR Routine 07/27/2024 5:24 AM EDT HEPATIC FUNCTION PANEL Routine 5:24 AM EDT PROTIME-INR Routine 07/27/2024 5:24 AM EDT RENAL FUNCTION PANEL W/EGFR STAT 07/26/2024 5:37 PM EDT CHLORIDE, URINE, RANDOM Routine 07/27/19 25 3:39 PM EDT POTASSIUM, URINE, RANDOM Routine 025 3:39 PM EDT SODIUM, URINE, RANDOM Routine 07/26/2024 3:39 PM EDT OSMOLALITY, URINE Add-On 07/26/2024 3:3 9 PM EDT CREATININE, URINE, RANDOM Routine 2024 3:39 PM EDT RENAL FUNCTION PANEL W/EGFR Timed 07/26/2024 2:00 PM EDT POTASSIUM STAT 07/26/2024 6:44 AM EDT COMPREHENSIVE METABOLIC PANEL Routine 07/26/2024 5:07 AM EDT DIFFERENTIAL Routine 07/26/2024 5:07 AM EDT CBC Routine 07/26/2024 5:07 AM EDT URINALYSIS, MICROSCOPIC STAT 07/27/19 12:38 AM EDT URINALYSIS-MACROSCOPIC W/REFLEX TO MICROSCOPIC STAT 07/26/2024 12:38 AM EDT POTASSIUM STAT 07/25/2024 8:27 PM EDT AMMONIA STAT 07/25/2024 8:27 PM EDT POTASSIUM STAT 07/25/2024 7:49 PM EDT PROTIME-INR STAT 07/25/2024 7:49 PM EDT MAGNESIUM STAT 07/25/2024 3:35 PM EDT LIPASE STAT 07/25/2024 3:35 PM EDT HEPATIC FUNCTION PANEL STAT 3:35 PM EDT DIFFERENTIAL STAT 07/25/2024 3:35 PM EDT CBC STAT 07/25/2024 3:35 PM EDT ED HCV AB REFLEX TO HCV QUANT Routine 07/25/2024 3:35 PM EDT BASIC METABOLIC PANEL STAT 07/25/2024 3:35 PM EDT from Last 3 Months Results * (ABNORMAL) Renal Function Panel w/EGFR (10/17/2024 5:48 AM EDT) Only the most recent of49 resultswithin the time period is included. Sodium 133 133 - 146 mmol/L 10/17/2024 7:02 AM EDT [facility] Potassium 3.4(L) 3.5 - 5.3 mmol/L 10/17/2024 7:02 AM EDT [facility] Chloride 104 98 - 110 mmol/L 10/17/2024 7:02 AM EDT [facility] CO2 18(L) 21 - 33 mmol/L 10/17/2024 7:02 AM EDT [facility] Anion Gap 11 3 - 16 mmol/L 10/17/2024 7:02 AM EDT [facility] BUN 54(H) 7 - 25 mg/dL 10/17/2024 7:02 AM EDT [facility] Creatinine 2.88(H) 0.60 - 1.30 mg/dL 10/17/2024 7:02 AM EDT [facility] Glucose 127(H) 70 - 100 mg/dL 10/17/2024 7:02 AM EDT [facility] Calcium 8.2(L) 8.6 - 10.3 mg/dL 10/17/2024 7:02 AM EDT [facility] Phosphorus 4.5 2.1 - 4.7 mg/dL 10/17/2024 7:02 AM EDT [facility] Albumin 3.1(L) 3.5 - 5.7 g/dL 10/17/2024 7:02 AM EDT [facility] Osmolality, Calculated 292 278 - 305 mOsm/kg 10/17/2024 7:02 AM EDT [facility] EGFR 27 10/17/2024 7:02 AM EDT [facility] Comment:As of 2021, the [...] 5:48 AM EDT 10/17/2024 6:32 AM EDT Kush Posada MD, PhD LAB BLOOD ORDERABLES Final Result [facility] [address] [place] [address], [facility] * (ABNORMAL) Hepatic Function Panel (10/16/2024 6:31 AM EDT) Only the most recent of34 resultswithin the time period is included. Total Bilirubin 7.6(H) 0.0 - 1.5 mg/dL 10/16/2024 7:24 AM EDT [facility] Bilirubin, Direct 3.97(H) 0.00 - 0.40 mg/dL 10/16/2024 7:24 AM EDT [facility] AST 45(H) 13 - 39 U/L 10/16/2024 7:24 AM EDT [facility] ALT 23 7 - 52 U/L 10/16/2024 7:24 AM EDT [facility] Alkaline Phosphatase 137(H) 36 - 125 U/L 10/16/2024 7:24 AM EDT [facility] Total Protein 5.1(L) 6.4 - 8.9 g/dL 10/16/2024 7:24 AM EDT [facility] Albumin 3.4(L) 3.5 - 5.7 g/dL 10/16/2024 7:24 AM EDT [facility] Bilirubin, Indirect 3.63(H) 0.00 - 1.10 mg/dL 10/16/2024 7:24 AM EDT [facility] Plasma 10/16/2024 6:31 AM EDT 10/16/2024 6:56 AM EDT Result [facility] Kush Posada MD, PhD LAB BLOOD ORDERABLES Final Result Performing Organization Address [facility] de Phone Number [facility] [address] [facility] * (ABNORMAL) Protime-INR (10/16/2024 6:31 AM EDT) Only the most recent of34 resultswithin the time period is included. Protime 22.5(H) 12.1 - 15.1 seconds 10/16/2024 8:04 AM EDT [facility] INR 1.9(H) 0.9 - 1.1 10/16/2024 8:04 AM EDT [facility] Comment: RECOMMENDED THERAPEUTIC RANGES USING INR : Stable oral anticoagulant therapy: 2.0 - 3.0 Mechanical prosthetic heart valve: 2.5 - 3.5 Recurrent acute myocardial infarction: 2.5 - 3.5 Plasma 10/16/2024 6:31 AM EDT 10/16/2024 6:56 AM EDT Kush Posada MD, PhD LAB BLOOD ORDERABLES Final Result Performing Organization Address [facility] de Phone Number [facility] [address] [facility] * (ABNORMAL) CBC (10/16/2024 6:31 AM EDT) Only the most recent of43 resultswithin the time period is included. WBC 5.8 3.8 - 10.8 10E3/uL 10/16/2024 8:00 AM EDT [facility] RBC 2.16(L) 4.20 - 5.80 10E6/uL 10/16/2024 8:00 AM EDT [facility] Hemoglobin 7.7(L) 13.2 - 17.1 g/dL 10/16/2024 8:00 AM EDT [facility] Hematocrit 22.1(L) 38.5 - 50.0 % 10/16/2024 8:00 AM EDT [facility] MCV 102.3(H) 80.0 - 100.0 fL 10/16/2024 8:00 AM EDT [facility] MCH 35.7(H) 27.0 - 33.0 pg 10/16/2024 8:00 AM EDT [facility] MCHC 34.9 32.0 - 36.0 g/dL 10/16/2024 8:00 AM EDT [facility] RDW 17.7(H) 11.0 - 15.0 % 10/16/2024 8:00 AM EDT [facility] Platelets 43(L) 140 - 400 10E3/uL 10/16/2024 8:00 AM EDT [facility] Comment: Specimen checked for clots. None detected. Slide Reviewed for PLT Clumps. None Seen. Platelet Estimate Decreased 10/16/2024 8:00 AM EDT [facility] MPV 8.6 7.5 - 11.5 fL 10/16/2024 8:00 AM EDT [facility] Whole Blood 10/16/2024 6:31 AM EDT 10/16/2024 6:57 AM EDT Narrative [facility] - 10/16/2024 8:00 AM EDT Peripheral blood smear was scanned per review criteria approved by the laboratory medical services manager. us Kush Posada MD, PhD LAB BLOOD ORDERABLES Final Result [facility] [address] * Magnesium (10/16/2024 6:31 AM EDT) Only the most recent of50 resultswithin the time period is included. Magnesium 2.1 1.5 - 2.5 mg/dL 10/16/2024 7:24 AM EDT [facility] Plasma 10/16/2024 6:31 AM EDT 10/16/2024 6:56 AM EDT us Kush Posada MD, PhD LAB BLOOD ORDERABLES Final Result [facility] [address] * CARISA Rhythm Strip - Scan (10/15/2024 8:02 PM EDT) Only the most recent of12 resultswithin the time period is included. us Scanning Uchhim SCAN DOCS - NO RESULTS Final Res ult * Prepare Platelets, leukoreduced, 1 Units (10/15/2024 6:16 AM EDT) Only the most recent of2 resultswithin the time period is included. Product Code H5993O74 [facility] Unit Number [id number] [facility] Dispense Status Presumed Transfused_PT [facility] Blood Expiration Date [facility] Coding System [id number] [facility] Blood Bank Product us Eleazar Nguyễn MD BLOOD BANK PRODUCT ORDE LILIA Final Result [facility] * Prepare Fresh Frozen Plasma, 1 Units (10/15/2024 6:15 AM EDT) Product Code B0592K38 [facility] Unit Number [id number] [facility] Dispense Status Presumed Transfused_PT [facility] Blood Expiration Date [facility] Coding System [id number] [facility] Blood Bank Product us Eleazar Nguyễn MD BLOOD BANK PRODUCT ORDE LILIA Final Result Performing Organization Address City/[facility]/ZIP Co de Phone Number HCLL * PRA-HLA Ab Screen (Cytotoxic) (10/15/2024 6:08 AM EDT) [facility] The request and specimen(s) for this test have been received and transported to the [facility] [place] at [address] [place] [address]. The [facility] will report results directly to the client. 10/15/2024 6:42 AM EDT [facility] Comment:The request and spec imen(s) for this test have been received and transported to the [facility] [place] at [address] [place] [address]. The [facility] will report results directly to the client. Serum 10/15/2024 6:08 AM EDT 10/15/2024 6:42 AM EDT us Cosmo Pacheco MD LAB BLOOD ORDERABLES Final Resul t Performing Organization Address [facility] Co de Phone Number [facility] [address] [place] [address] * LEFT HEART CATH (10/14/2024 2:09 PM EDT) 10/14/2024 11:4 7 AM EDT Narrative [facility] - 10/14/2024 9:27 PM EDT *[facility]* Cardiac Feed Crusher [address] [place] [address] CATHETERIZATION LAB STUDY Patient: Blair Adnerson Age: 39 Study Date: 10/14/2024 Gender: M [...] manner. 3. Right radial artery access. A 6Rx89pm Glidesheath - Slender - .021 sheath was [...] + + !LV pressure s/d, ed !, dP/jb=2664hr Hg/s! + + + !Aortic pressure s/d (m)!106/58 (75) ! + + + ATTESTATION: Dr. Matta was present for the entire procedure. Dr. Jay Quan was the initial author of this report. Prepared and electronically signed by Irving Matta MD [id number] Procedure Note Irving Matta MD - 10/14/2024 *[facility]* Cardiac Feed Crusher [address] [place] [address] CATHETERIZATION LAB STUDY Patient: Blair Anderson Age: 39 Study Date: 10/14/2024 Gender: M [...] manner. 3. Right radial artery access. A [id number] Glidesheath - Slender - .021sheath was advanced [...] complications. Contrast: Omnipaque 350 25ml (total dose). Hiymvthuk126 125ml (wasted). Radiation: Fluoroscopy time: 15min. Total [...] + + !LV pressure s/d, ed !, dP/oa=2008nf Hg/s! + + + !Aortic pressure s/d (m)!106/58 (75) ! + + + ATTESTATION: Dr. Matta was present for the entire procedure. Dr. Jay Quan wasthe initial author of this report. Prepared and electronically signed by Irving Matta MD [id number] [place] [id number] Final Result [facility] * Transfuse Fresh Frozen Plasma Transfusion Rate: Per dept routine (10/14/2024 2:08 PM EDT) us Eleazar Nguyễn MD NURSING TREATMENT ORDER PAL - BLOOD ADMIN Final Result Performing Organization Address City/[facility]/ZIP Co de Phone Number EXTERNAL * Transfuse Platelets Transfusion Rate: Per dept routine (10/14/2024 12:43 PM EDT) Only the most recent of2 resultswithin the time period is included. us Eleazar Nguyễn MD NURSING TREATMENT ORDER PAL - BLOOD ADMIN Final Result Performing Organization Address City/[facility] Co de Phone Number EXTERNAL * ABO/Rh (10/14/2024 8:21 AM EDT) Only the most recent of5 resultswithin the time period is included. ABO Grouping O 10/14/2024 8:55 AM EDT [facility] Rh Type Positive 10/14/2024 8:55 AM EDT [facility] Blood 10/14/2024 8:21 AM EDT 10/14/2024 8:33 AM EDT us Eleazar Nguyễn MD BLOOD BANK TEST ORDERAB LES Final Result Performing Organization Address [facility] Co de Phone Number [facility] [address] [facility]. [address] * Antibody Screen (10/14/2024 8:21 AM EDT) Only the most recent of3 resultswithin the time period is included. Antibody Screen Negative 10/14/2024 9:11 AM EDT [facility] Blood 10/14/2024 8:21 AM EDT 10/14/2024 8:33 AM EDT Narrative [facility] - 10/14/2024 9:26 AM EDT Testing performed by [facility] Transfusion Service us Eleazar Nguyễn MD BLOOD BANK TEST ORDERAB LES Final Result Performing Organization Address City/[facility] Co de Phone Number [facility] [address] [place] [address], [facility] * Cardiac Cath Documents Scan (10/14/2024 2:06 AM EDT) us Scanning [facility] SCAN DOCS - NO RESULTS Final [...] GADOBUTROL 1 MMOL/ML INTRAVENOUS SYRINGE ([facility]) administered intravenously COMPARISON: CT 09/03/2024. Ultrasound 10/07/2024. [...] GADOBUTROL 1 MMOL/ML INTRAVENOUS SYRINGE ([facility])administered intravenously COMPARISON: CT 09/03/2024. Ultrasound 10/07/2024. Outside [...] MD at 10/14/2024 12:02 PM EDT us Kush Posada MD, PhD IMG MRI ORDERABLES Fi nal Result * (ABNORMAL) Ammonia (10/13/2024 5:35 AM EDT) Only the most recent of9 resultswithin the time period is included. Ammonia 203(HH) 27 - 90 ug/dL 10/13/2024 7:16 AM EDT [facility] Comment: HEMOLYSIS EVIDENT. RESULTS MAY BE INFLUENCED. Critical Result S_AMM:203 Called to and read back by: KEY MELO RN at: 10/13/2024 07:15:55 by:[email or web address] Plasma 10/13/2024 5:35 AM EDT 10/13/2024 6:19 AM EDT us Ellis Mays DO LAB BLOOD ORDERABLES Final Resul t [facility] [address] [place] [address], [facility] * Vancomycin, random (10/11/2024 3:02 AM EDT) Only the most recent of5 resultswithin the time period is included. Vancomycin Random 13.4 ug/mL 10/11/2024 3:37 AM EDT [facility] Comment:Reference range not established for this test. Plasma 10/11/2024 3:02 AM EDT 10/11/2024 3:08 AM EDT us Jodi Ortiz PharmD LAB BLOOD ORDERABLES Final Result [facility] [address] [place] [address], [facility] * IR Paracentesis incl imaging guide (10/10/2024 3:13 PM EDT) Only the most recent of2 resultswithin the time period is included. Anatomical Region Laterality Modality Abdomen, Pelvis X-Ray [...] Procedure: Paracentesis, ultrasound-guided Performed on 10/10/2024 Indications: Blair is a 39 y.o. male with a [...] diagnostic and therapeutic paracentesis. Bakari Wahl CNP, [employer] Procedure and Findings: The procedure was [...] Procedure: Paracentesis, ultrasound-guided Performed on 10/10/2024 Indications: Blair is a 39 y.o. male with a [...] for diagnostic andtherapeutic paracentesis. Bakari Wahl CNP, [employer] Procedure and Findings: The procedure was [...] CNP at 10/10/2024 3:31 PM EDT us Jani Vanegas MD IMG IR ORDERABLES Final Result * Stress Testing Lab - scan (10/10/2024 3:08 PM EDT) us Scanning Uchhim SCAN DOCS - NO RESULTS Final Res ult * Body Fluid Culture plus Stain (10/10/2024 1:51 PM EDT) Only the most recent of5 resultswithin the time period is included. Gram Stain Result Cytospin Results: HEALTH LAB Gram Stain Result Polymorphonuclear Leukocytes Seen; [facility] Gram Stain Result No Organisms Seen; [facility] Culture Result No Growth After 5 Days [facility] Fluid ABDOMEN / Unknown 10/10/2024 1:51 PM EDT 10/10/2024 3:56 PM EDT us Gerri Peterson MD MICROBIOLOGY - GENERAL ORDERABL ES Final Result [facility] [address] * (ABNORMAL) Body fluid cell count (10/10/2024 1:51 PM EDT) Only the most recent of5 resultswithin the time period is included. Color, Fluid Yellow(A) Colorless, Pale Yellow 10/10/2024 5:29 PM EDT HEALTH LAB Clarity, Fluid Clear 10/10/2024 5:29 PM EDT [facility] Neutrophil %, Fluid 9 % 10/10/2024 5:29 PM EDT [facility] Lymphocytes %, Fluid 13 % 10/10/2024 5:29 PM EDT [facility] Mesothelial %, Fluid 6 % 10/10/2024 5:29 PM EDT [facility] Macrophage %, Fluid 72 % 10/10/2024 5:29 PM EDT [facility] RBC, Fluid 2,662 /uL 10/10/2024 4:41 PM EDT [facility] Total Nucleated Cells, Fluid 89 /uL 10/10/2024 4:41 PM EDT [facility] Comment:Total Nucleated Cell s represent WBCs and other nucleated cells in the fluid such as lining cells. Ascitic Fluid ABDOMEN / Unknown 1:51 PM EDT 10/10/2024 3:56 PM EDT us Gerri Peterson MD BODY FLUIDS AND STOOLS ORDERABL ES Final Result [facility] [address] * UPPER GI ENDOSCOPY (10/10/2024 11:48 AM EDT) 10/10/2024 11:4 8 AM EDT Narrative [facility] - 10/10/2024 12:34 PM EDT [id number] Procedure Date: 10/10/2024 11:48 AM Patient Name: Blair Anderson Date of : 1985 Admit Type: Inpatient Age: 39 Gender: Male Note Status: Finalized Attending MD: Lino Soto MD, [id number] Procedure: Upper GI endoscopy Indications: Gastroesopahgeal variceal surveillance Providers: Lino oSto MD, Gerri Peterson MD (Fellow) Referring MD: [...] verified by the physician, the nurse, the stock and station agent and the helpdesk technician in the pre-procedure area in the [...] to hypotension Procedure Code(s): --- Professional --- 50782, GC, Esophagogastroduodenoscopy, flexible, transoral; diagnostic, including collection of specimen(s) by brushing or washing, when performed (separate procedure) Diagnosis Code(s): --- Professional --- I85.00, Esophageal 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 All rights reserved. The codes documented in this report are preliminary and upon criminal judge review may be revised to meet current [...] 12:10:16 PM Scope Out: 12:17:[address] [place] [address], [id number] us Provider Not In System PROCEDURE/MINOR SURGICAL ORDERABLES Final Result [facility] * ECHO STRESS W/ CONTRAST (10/09/2024 4:37 PM EDT) Anatomical Region Laterality Modality Chest Ultrasound 10/09/2024 2:40 PM EDT Narrative 10/09/2024 6:45 PM EDT * [facility]* [address] [place] [id number] Stress Echocardiogram Patient: Blair Anderson Room: 8142 Height: 76in MR Number: [id number] : 1985 Weight: 262lb Account: [id number] Gender: M BP: 125 / 77 Study Date: 10/09/2024 Age: 39 BSA: 2.48m^2 Referring physician: Gerri Peterson Interpreting physician: Tonya Henriquez MD FELLOW Lisa Jha MD PERFORMING Tonya Henriquez MD 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 The infusion was terminated [...] at baseline or with provocation, shows no rgwaa-yt-tmkr atrial level shunt. - Pulmonary arteries: Systolic [...] at baseline or with provocation, shows no ruiqx-li-dwgc atrial level shunt. Pulmonary artery: - Systolic [...] at baseline or with provocation, shows no qmhou-jb-kwhd atrial level shunt. Pericardium: - There is [...] peak heart rate and blood pressure was 27330oj Hg/min. Stress testing did not produce any [...] mayco values outside specified reference range. (N) sparks values inside specified reference range. I personally reviewed the images and agree with the interpretation of the resident. 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 PMH: EtOH Use Disorder. Risk factors: Hypertension. Dyslipidemia. Study data: Height: 76in. 193cm. Weight: 262lb. 118.8kg. The previousstudy was not available, so comparison was made to the report of 07/15/2024. Study status: Routine. Procedure: [facility] A baseline ECG was recorded. Intravenous access [...] was augmented by the addition of hand renal technician and leg lifts. The infusion was terminated [...] at baseline or with provocation, shows no hclbk-dn-jjwh atrial level shunt. - Pulmonary arteries: Systolic [...] study at baseline or with provocation, showsno ekebi-zh-uvom atrial level shunt. Pulmonary artery: - Systolic [...] at baseline or with provocation, shows no ckftv-rw-ucra atrial level shunt. Pericardium: - There is [...] heart rate). The maximal predicted heart rate [id number]. The target heart rate was 152bpm. The target heart rate was achieved.The heart rate response to stress is normal. There is a normal resting blood pressure with an appropriate response to stress. The rate-pressureproduct for the peak heart rate and blood pressure was 07205ps Hg/min. Stress testing did not produce any [...] mayco values outside specified reference range. (N) sparks values inside specified reference range. I personally reviewed the images and agree with the interpretation ofthe resident. Reviewed and confirmed by Tonya Henriquez MD [id number] us Gerri Peterson MD CV ECHO ORDERABLES Final Result * Prepare RBC, leukoreduced, 1 Units (10/09/2024 6:16 AM EDT) Product Code X2175F09 [facility] Unit Number [id number] [facility] Dispense Status Presumed Transfused_PT [facility] Blood Expiration Date [id number] [facility] Coding System [id number] [facility] Blood Bank Product Kush Posada MD, PhD BLOOD BANK PRODUCT OR DERABLES Final Result Performing Organization Address [facility] de Phone Number HC[facility] * Renal Tx Recipient (10/09/2024 4:59 AM EDT) Renal Transplant Recipient The request and specimen(s) for this test have been received and transported to the [facility] at [address] [place] [address]. The [facility] will report results directly to the client. 10/09/2024 7:26 AM EDT [facility] Blood 10/09/2024 4:59 AM EDT 10/09/2024 7:26 AM EDT Aaron Gonzalez MD LAB BLOOD ORDERABLES Final Resu lt Performing Organization Address [facility]/ZIP Co de Phone Number [facility] [address] * Transfuse RBC Has consent been obtained? Yes; Transfusion Rate: Per dept routine (10/08/2024 1:17 PM EDT) us Kush Posada MD, PhD NURSING TREATMENT ORD ERABLES - BLOOD ADMIN Final Result Performing Organization Address City/[facility]/ZIP Co de Phone Number EXTERNAL * (ABNORMAL) MMR(IgG) Panel (Measles, Mumps, Rubella) (10/08/2024 10:25 AM EDT) Only the most recent of2 resultswithin the time period is included. Mumps IgG Positive 10/08/2024 11:39 AM EDT [facility] MUMPS IGG NUM 99.00(H) 0.0 - 8.9 U/mL 10/08/2024 11:39 AM EDT [facility] Rubella IgG Scr Positive 10/08/2024 11:40 AM EDT [facility] RUB NUM 4.15(H) 0.00 - 0.89 INDEX 10/08/2024 11:40 AM EDT [facility] Rubeola Ab, IgG Positive 10/08/2024 11:39 AM EDT [facility] RUB IGG NUM 273.00(H) 0.00 - 13.40 U/mL 10/08/2024 11:39 AM EDT [facility] Serum 10/08/2024 10:2 5 AM EDT 10/08/2024 10:49 AM EDT Narrative [facility] - 10/08/2024 11:40 AM EDT [...] MD LAB BLOOD ORDERABLES Final Resu lt [facility] [address] * QuantiFERON TB2 Ag (10/08/2024 10:25 AM EDT) QuantiFERON TB2 Ag Value 0.07 10/10/2024 10:41 AM EDT [facility] Plasma 10/08/2024 10:2 5 AM EDT 10/08/2024 11:05 AM EDT Gerri Peterson MD LAB BLOOD ORDERABLES Final Resu lt [facility] [address] [facility] * QuantiFERON TB1 Ag (10/08/2024 10:25 AM EDT) QuantiFERON TB1 Ag Value 0.06 10/10/2024 10:41 AM EDT [facility] Plasma 10/08/2024 10:2 5 AM EDT 10/08/2024 11:05 AM EDT Gerri Peterson MD LAB BLOOD ORDERABLES Final Resu lt [facility] [address] [facility] * QuantiFERON Nil (10/08/2024 10:25 AM EDT) QuantiFERON Nil 0.06 10:41 AM EDT [facility] Plasma 10/08/2024 10:2 5 AM EDT 10/08/2024 11:05 AM EDT Gerri Peterson MD LAB BLOOD ORDERABLES Final Resu lt [facility] [address] [place] [address]. [address] * QuantiFERON Mitogen (10/08/2024 10:25 AM EDT) QuantiFERON Interpretation Negative Negative 10/10/2024 10:41 AM EDT [facility] Comment:Negative result geovanny cates M. tuberculosis infection is NOT likely. Negative results do not preclude tuberculosis infection (especially in immunosuppressed patients). Negative results have a TB antigen minus Nil value less than 0.35 IU/mL. In cases with high suspicion of disease, retesting or additional testing with medical evaluation may be useful. QuantiFERON Mitogen 4.87 10/10 10:41 AM EDT [facility] Plasma 10/08/2024 10:2 5 AM EDT 10/08/2024 11:05 AM EDT Narrative HEALTH LAB - 10/10/2024 10:41 AM EDT The [...] ORDERABLES Final Resu lt Performing Organization Address City/[facility] Co de Phone Number [facility] [address] [facility] * Iron Studies (Iron + TIBC) (10/08/2024 10:25 AM EDT) Iron 81 50 - 212 ug/dL 10/08/2024 11:23 AM EDT [facility] % Iron Saturation SEE COMMENT 15.0 - 55.0 % 10/08/2024 11:23 AM EDT [facility] Comment:Unable to calculate result because contributing result outside reportable range.. TIBC SEE COMMENT 261 - 462 ug/dL 10/08/2024 11:23 AM EDT [facility] Comment:Unable to calculate result because contributing result outside reportable range.. Serum 10/08/2024 10:2 5 AM EDT 10/08/2024 10:49 AM EDT Gerri Peterson MD LAB BLOOD ORDERABLES Final Resu lt Performing Organization Address [facility]/ZIP Co de Phone Number [facility] [address] [facility] * (ABNORMAL) Vitamin D 25 Hydroxy (10/08/2024 10:25 AM EDT) Vit D, 25-Hydroxy 7.1(L) 30.0 - 100.0 ng/mL 10/08/2024 11:36 AM EDT [facility] Comment: Vitamin D deficiency has been defined by the [place] [employer] (IOM) and an Endocrine Society [...] Endocrine Society clinical practice guideline. JCEM. 2010; 96(6):1911-30. Serum 10/08/2024 10:2 5 AM EDT 10/08/2024 10:49 AM EDT Gerri Peterson MD LAB BLOOD ORDERABLES Final Resu lt Performing Organization Address [facility] Co de Phone Number [facility] [address] * (ABNORMAL) Hemoglobin A1C (10/08/2024 10:25 AM EDT) Hemoglobin A1C 3.7(L) 4.0 - 5.6 % 10/09/2024 1:22 PM EDT [facility] Comment: Hemoglobin A1c Interpretation Guidelines: [...] ORDERABLES Final Resu lt Performing Organization Address [facility] Co de Phone Number [facility] [address] * (ABNORMAL) Ferritin (10/08/2024 10:25 AM EDT) Ferritin 706.9(H) 23.9 - 336.2 ng/mL 10/08/2024 11:35 AM EDT [facility] Serum 10/08/2024 10:2 5 AM EDT 10/08/2024 10:49 AM EDT Gerri Peterson MD LAB BLOOD ORDERABLES Final Resu lt Performing Organization Address [facility] Co de Phone Number [facility] [address] * Reticulocyte Count, Auto (10/08/2024 7:41 AM EDT) Retic Ct Pct 1.35 0.50 - 2.00 % 10/08/2024 9:12 AM EDT [facility] Retic Ct Abs 26,190 25,000 - 90,000 /uL 10/08/2024 9:14 AM EDT [facility] Immature Retic Fract 0.37 0.09 - 0.56 10/08/2024 9:12 AM EDT [facility] Whole Blood 10/08/2024 7:41 AM EDT 10/08/2024 8:51 AM EDT Gómez Blanchard MD LAB BLOOD ORDERABLES Final Res ult Performing Organization Address [facility] Co de Phone Number [facility] [address] [facility] * (ABNORMAL) Haptoglobin (10/08/2024 7:41 AM EDT) Haptoglobin <30(L) 44 - 215 mg/dL 10/08/2024 8:53 AM EDT [facility] Serum 10/08/2024 7:41 AM EDT 10/08/2024 7:51 AM EDT Kush Posada MD, PhD LAB BLOOD ORDERABLES Final Result [facility] [address] [facility] * (ABNORMAL) Lactate dehydrogenase (10/08/2024 5:36 AM EDT) [facility] LD 102(L) 110 - 270 U/L 10/08/2024 8:20 AM EDT [facility] Plasma 10/08/2024 5:36 AM EDT 10/08/2024 7:58 AM EDT Gómez Blanchard MD LAB BLOOD ORDERABLES Final Res ult Performing Organization Address [facility] Co de Phone Number [facility] [address] * Enteric Pathogen Panel (10/07/2024 10:50 PM EDT) Only the most recent of2 resultswithin the time period is included. [facility] Campylobacter Group (C. ecoli, C. jejuni, C. trino) Not Detected Not Detected 10/08/2024 4:40 AM EDT [facility] Salmonella species Not Detected Not Detected 10/08/2024 4:40 AM EDT [facility] Shigella species Not Detected Not Detected 10/08/2024 4:40 AM EDT [facility] Vibrio Group (Vibrio cholerae, Vibrio parahaemolyticus) Not Detected Not Detected 10/08/2024 4:40 AM EDT [facility] Yersinia enterocolitica Not Detected Not Detected 10/08/2024 4:40 AM EDT [facility] Shiga toxin 1 Not Detected Not Detected 10/08/2024 4:40 AM EDT [facility] Shiga toxin 2 Not Detected Not Detected 10/08/2024 4:40 AM EDT [facility] Norovirus Not Detected Not Detected 10/08/2024 4:40 AM EDT [facility] Rotavirus Not Detected Not Detected 10/08/2024 4:40 AM EDT [facility] Comment: The Enteric Pathogen [...] AM EDT Comment:F us Bisi Hernandez DO BODY FLUIDS AND STOOLS ORDERABLE S Final Result [facility] [address] [place] [address], [facility] * Urine Drug Confirmation (10/07/2024 10:50 PM EDT) Only the most recent of2 resultswithin the time period is included. BARBITURATES NOT PRESENT 10/09/2024 1:33 PM EDT [facility]ALTH LAB BENZODIAZEPINES PRESENT 1:33 PM EDT [facility] Nordiazepam 3 ng/mL 10/09/2024 1:33 PM EDT [facility] Temazepam 6 ng/mL 10/09/2024 1:33 PM EDT [facility] CANNABINOIDS NOT PRESENT 10/09/2024 1:33 PM EDT [facility] ETL DATA ARCHITECT STIMULANTS NOT PRESENT 1:33 PM EDT [facility] OPIOID ANALGESICS PRESENT 025 1:33 PM EDT [facility] Oxycodone 300 ng/mL 10/09/2024 1:33 PM EDT [facility] Oxymorphone 32 ng/mL 10/09/2024 1:33 PM EDT [facility] Tramadol >1000 ng/mL 10/09/2024 1:33 PM EDT [facility] OPIOID ANTAGONISTS NOT PRESENT 10/09 1:33 PM EDT [facility] SEDATIVES/MUSCLE RELAXANTS NOT PRESENT 10/09/2024 1:33 PM EDT [facility] TRICYCLIC ANTIDEPRESSANTS NOT PRESENT 10/09/2024 1:33 PM EDT [facility] Urine 10/07/2024 10:5 0 PM EDT 10/08/2024 3:00 AM EDT Gerri Peterson MD URINE ORDERABLES Final Result Performing Organization Address City/[facility]/ZIP Co de Phone Number [facility] [address] [facility] * Giardia Cryptosporidium Antigens (10/07/2024 10:50 PM EDT) Cryptosporidium Ag Negative Negative 2024 7:59 AM EDT [facility] Giardia Ag Negative Negative 10/08/2024 7:59 AM EDT [facility] Comment: Detection of Giardia and Cryptosporidium antigen is more sensitive and specific than microscopy. Because antigens are shed continuously, repeat testing is rarely warranted. Feces 10/07/2024 10:5 0 PM EDT 10/08/2024 1:53 AM EDT Comment:F Bisi Hernandez DO MICROBIOLOGY - GENERAL ORDERABLE S Final Result Performing Organization Address [facility] de Phone Number [facility] [address] [facility] * Comprehensive Drug Screen (10/07/2024 10:50 PM EDT) Only the most recent of2 resultswithin the time period is included. Creatinine, Ur CANCELED mg/dL 10/08/2024 7:09 AM EDT [facility] Comment:The released value 8 7.30 was canceled by YAQUELIN on 10/08/2024 07:09 BARBITURATES CANCELED HEAL TH LAB Butalbital CANCELED HEALTH LAB Phenobarbital CANCELED HEA [facility] LAB Secobarbital CANCELED [facility] BENZODIAZEPINES CANCELED H EALTH LAB Alprazolam CANCELED [facility]ALTH LAB Clonazepam CANCELED [facility] Diazepam CANCELED [facility] Alpha-Hydroxyalprazo mcknight CANCELED [facility] Lorazepam CANCELED [facility] Midazolam CANCELED [facility] Nordiazepam CANCELED [facility] Oxazepam CANCELED [facility] Temazepam CANCELED [facility] CANNABINOIDS CANCELED [facility] THC-COOH CANCELED [facility] ETL DATA ARCHITECT STIMULANTS CANCELED [facility] Cocaine Metabolite(benzoylec gonine) CANCELED [facility] Amphetamine CANCELED [facility] Methamphetamine CANCELED [facility] MDA CANCELED [facility] MDEA CANCELED [facility] Phencyclindine (PCP) CANCELED [facility] OPIOID ANALGESICS CANCELED [facility] Heroin Metabolite(6-RAMONA) CANCELED [facility] Codeine CANCELED [facility] Morphine CANCELED [facility] Hydrocodone CANCELED [facility] Hydromorphone CANCELED [facility] Oxycodone CANCELED [facility] Oxymorphone CANCELED [facility] Meperidine CANCELED [facility] Normeperidine CANCELED [facility] Methadone CANCELED [facility] Methadone Metabolite (EDDP) CANCELED [facility] Tramadol CANCELED [facility] Fentanyl CANCELED [facility] Norfentanyl CANCELED [facility] Sufentanil CANCELED [facility] OPIOID ANTAGONISTS CANCELED [facility] Buprenorphine CANCELED [facility] Norbuprenorphine CANCELED [facility] Naltrexone CANCELED [facility] Naloxone CANCELED [facility] SEDATIVES/MUSCLE RELAXANTS CANCELED [facility] Carisoprodol CANCELED [facility] Meprobamate CANCELED [facility] TRICYCLIC ANTIDEPRESSANTS CANCELED [facility] Amitriptyline CANCELED [facility] Clomipramine CANCELED [facility] Desipramine CANCELED [facility] Doxepin CANCELED [facility] Imipramine CANCELED [facility] Nortriptyline CANCELED [facility] Urine Creatinine CANCELED mg/dL [facility] Nitrite CANCELED [facility] Glutaraldehyde CANCELED [facility] pH CANCELED 10/08/2024 7:09 AM EDT [facility] Comment:The released value 5 .6 was canceled by YAQUELIN on 10/08/2024 07:09 Specific [place] CANCELED 10/09/19 7:09 AM EDT [facility] Comment:The released value 1 .009 was canceled by YAQUELIN on 10/08/2024 07:09 Bleach CANCELED [facility] Pyridinium Chlorochromate [facility]ELED [facility] [facility] Urine 10/07/2024 10:5 0 PM EDT 10/08/2024 2:07 AM EDT Narrative [facility] - 10/08/2024 7:09 AM EDT See accn [id number] us Gerri Peterson MD URINE ORDERABLES Edited Result - Final [facility] [address] [place] [address], [facility] * (ABNORMAL) Urine Drug Screen Reflex to Confirmation (10/07/2024 10:50 PM EDT) Only the most recent of2 resultswithin the time period is included. Amphetamine, 500 ng/mL Cutoff Negative Negative 10/08/2024 3:00 AM EDT [facility] Barbiturates UR, 300 ng/mL Cutoff Negative Negative 10/08/2024 3:00 AM EDT [facility] Buprenorphine, 5 ng/mL Cutoff Negative Negative 10/08/2024 3:00 AM EDT [facility] Benzodiazepines UR, 300 ng/mL Cutoff Negative Negative 10/08/2024 3:00 AM EDT [facility] Cocaine UR, 300 ng/mL Cutoff Negative Negative 10/08/2024 3:00 AM EDT [facility] Methadone, UR, 300 ng/mL Cutoff Negative Negative 10/08/2024 3:00 AM EDT [facility] Opiates UR, 300 ng/mL Cutoff Negative Negative 10/08/2024 3:00 AM EDT [facility] Oxycodone, 100 ng/mL Cutoff Presumptive Positive(A) Negative 10/08/2024 3:00 AM EDT [facility] Tricyclic Antidepressants, 300 ng/mL Cutoff Negative Negative 10/08/2024 3:00 AM EDT [facility] Comment:This test has been d eveloped and its performance characteristics determined by [facility] which is certified under [...] Cutoff Negative Negative 10/08/2024 3:00 AM EDT [facility] Comment:This is a screening method only and may be associated with false positive and/or false negative results. Results are not definitive without additional confirmatory testing by mass spectrometry. Fentanyl, 2 ng/mL Cutoff Negative Negative 10/08/2024 3:00 AM EDT [facility] Comment:This test has been d eveloped and its performance characteristics determined by [facility] which is certified under [...] PM EDT 10/08/2024 2:08 AM EDT Narrative [facility] - 10/08/2024 3:00 AM EDT CONFIRMATION TO FOLLOW Gerri Peterson MD URINE ORDERABLES Final Result [facility] [address] [place], [place] [address] * Ova and Parasite Comprehensive w/ Giardia/Crypto (10/07/2024 10:50 PM EDT) O & P Method: Concentration and Trichrome Stain [facility] Results No Amoeba, Ova, Or Parasites Seen. -- O and P examination of additional specimens is recommended only for symptomatic patients, immunosuppressed patients or those with an appropriate travel history. [facility] Feces FECES / Unknown 10/07/2024 1 0:50 PM EDT 10/08/2024 1:53 AM EDT Comment:F Bisi Hernandez DO MICROBIOLOGY - GENERAL ORDERABLE S Final Result [facility] [address] [facility]. [address] * Hepatitis A Antibody Total (10/07/2024 6:38 PM EDT) Only the most recent of2 resultswithin the time period is included. Anti-HAV Total (IgG + IgM) Nonreactive 10/07/2024 7:53 PM EDT [facility] Serum 10/07/2024 6:38 PM EDT 10/07/2024 6:52 PM EDT Narrative [facility] - 10/07/2024 7:53 PM EDT HAV antibodies not detected Gerri Peterson MD LAB BLOOD ORDERABLES Final Resu lt Performing Organization Address [facility] Co de Phone Number [facility] [address] [facility]. [address] * Hepatitis A IgM (10/07/2024 6:38 PM EDT) Only the most recent of3 resultswithin the time period is included. Hep A IgM Nonreactive Nonreactive 10/07/2024 7:46 PM EDT [facility] Serum 10/07/2024 6:38 PM EDT 10/07/2024 6:52 PM EDT Narrative [facility] - 10/07/2024 7:46 PM EDT IgM anti-HAV not detected. Does not exclude the possibility of exposure to or infection with HAV. Levels of IgM anti-HAV may be below the cut-off in early infection. Gerri Peterson MD LAB BLOOD ORDERABLES Final Resu lt [facility] [address] [facility]. [address] * Hepatitis C Antibody (10/07/2024 6:38 PM EDT) Only the most recent of3 resultswithin the time period is included. HCV Ab Nonreactive Nonreactive 10/07/2024 7:56 PM EDT [facility] Comment:Health Department no tified in accordance with reportable infectious disease guidelines. Serum 10/07/2024 6:38 PM EDT 10/07/2024 6:52 PM EDT [facility] - 10/07/2024 7:56 PM EDT Antibodies to HCV not detected; does not exclude the possibility of exposure to HCV. Gerri Peterson MD LAB BLOOD ORDERABLES Final Resu lt Performing Organization Address [facility] Co de Phone Number [facility] [address] [facility]. [address] * Hepatitis B Surface Antibody, Quantitati (10/07/2024 6:38 PM EDT) Only the most recent of2 resultswithin the time period is included. Hep B S Ab Nonreactive Nonreactive 10/07/2024 8:00 PM EDT [facility] HBSAB NUMBER 7.88 0.00 - 7.99 mIU/mL 10/07/2024 8:00 PM EDT [facility] Serum 10/07/2024 6:38 PM EDT 10/07/2024 6:52 PM EDT [facility] - 10/07/2024 8:00 PM EDT Individual is considered not immune to HBV infection. Gerri Peterson MD LAB BLOOD ORDERABLES Final Resu lt [facility] [address] [facility]. [address] * Hepatitis B surface antigen (10/07/2024 6:38 PM EDT) Only the most recent of3 resultswithin the time period is included. Hep B Surface Ag Nonreactive Nonreactive 10/07/2024 7:51 PM EDT [facility] Comment:Health Department no tified in accordance with reportable infectious disease guidelines. Serum 10/07/2024 6:38 PM EDT 10/07/2024 6:52 PM EDT Narrative [facility] - 10/07/2024 7:51 PM EDT Specimen is considered negative for HBsAg. Gerri Peterson MD LAB BLOOD ORDERABLES Final Resu lt Performing Organization Address [facility] Co de Phone Number [facility] [address] * Syphilis Screening (Trepia) (10/07/2024 6:37 PM EDT) Treponema Pallidum Negative Negative 10/07/2024 8:27 PM EDT [facility] Comment: No serological evidence of infection with Treponema pallidum (incubating or early primary syphilis cannot be excluded). Serum 10/07/2024 6:37 PM EDT 10/07/2024 6:50 PM EDT Gerri Peterson MD LAB BLOOD ORDERABLES Final Resu lt Performing Organization Address [facility] de Phone Number [facility] [address] * Phosphatidylethanol Confirmation, B (10/07/2024 6:37 PM EDT) Only the most recent of6 resultswithin the time period is included. PETH 16:0/18.1 (POPETH) <10 Cutoff: 10 ng/mL 10/10/2024 10:42 AM EDT [facility] Comment: Phosphatidylethanol (PEth) homologues [...] Cutoff: 10 ng/mL 10/10/2024 10:42 AM EDT [facility] Comment: PEth 16:0/18:2 (PLPEth) Reference ranges are not well established PEth Interpretation Negative. 10/10 10:42 AM EDT [facility] Comment: ADDITIONAL INFORMATION This report is intended for use in clinical monitoring and management of patients. It is not intended for use in employment-related testing. This test was developed and its performance characteristics determined by [facility] in a manner consistent with CLIA requirements. This test has not been cleared or approved by the U.S. Food and Drug Administration. Test Performed by: [address] [address] Web Support Engineer: Kathy Ortiz Ph.D.; CLIA# [id number] Whole Blood 10/07/2024 6:37 PM EDT 10/10/2024 10:42 AM EDT Gerri Peterson MD LAB BLOOD ORDERABLES Final Resu lt Performing Organization Address City/[facility]/ZIP Co de Phone Number [facility] [address] * (ABNORMAL) CMV IgG Antibody (10/07/2024 6:37 PM EDT) CMV IgG Positive(A ) Negative 10/07/2024 8:26 PM EDT [facility] CMV IGG NUM 8.40(H) 0.00 - 0.59 U/mL 10/07/2024 8:26 PM EDT [facility] Serum 10/07/2024 6:37 PM EDT 10/07/2024 6:50 PM EDT Gerri Peterson MD LAB BLOOD ORDERABLES Final Resu lt Performing Organization Address City/[facility]/ZIP Co de Phone Number [facility] [address] * (ABNORMAL) Alpha 1 Antitrypsin AAT Quant & Mutation (10/07/2024 6:37 PM EDT) A-1 Antitrypsin 99(L) 101 - 187 mg/dL 10/09/2024 4:28 AM EDT [facility] A-1 Antitrypsin Pheno Comment 10/10/2024 4:05 PM EDT [facility] Comment: A1A Phenotype is consistent with a heterozygous phenotype consisting of one M (normal) allele and one allele that cannot be identified at this time. The unknown allele is not consistent with Z (deficient), S (deficient), or F (deficient). MM Phenotype is considered to be normal , producing normal serum levels of mcrcp-2-pxydcbzz inhibitor and not associated with clinical disease. [...] - 10/10/2024 4:08 PM EDT PERFORMED AT: [facility] [id number] TOOL ROOM MACHINIST: Bassam Khalil, PhD PHONE: [phone] PERFORMED AT: [facility] [address] [id number] TOOL ROOM MACHINIST: Mandy Abdul MD PHONE: [phone] Gerri Peterson MD LAB BLOOD ORDERABLES Final Resu lt [facility] [address] [facility]. [address] * Strongyloides Ab (10/07/2024 6:37 PM EDT) Strongyloides Ab Negative Negative 10/11/19 11:51 AM EDT [facility] Serum 10/07/2024 6:37 PM EDT 10/10/2024 12:07 PM EDT Narrative [facility] - 10/10/2024 12:07 PM EDT PERFORMED AT: [address] [id number] TOOL ROOM MACHINIST: Mandy Abdul MD PHONE: [phone] Gerri Peterson MD LAB BLOOD ORDERABLES Final Resu lt Performing Organization Address City/[facility] Co de Phone Number [facility] [address] [facility] * Ethanol, Serum (10/07/2024 6:37 PM EDT) Only the most recent of3 resultswithin the time period is included. Pathologist [facility] Ethanol <10 0 - 10 mg/dL 10/07/2024 8:36 PM EDT [facility] Serum 10/07/2024 6:37 PM EDT 10/07/2024 6:50 PM EDT Gerri Peterson MD LAB BLOOD ORDERABLES Final Resu lt [facility] [address] [facility] * Katie-Watkins virus early antigen antibody, IgG (10/07/2024 6:37 PM EDT) Pathologist [facility] EBV Early Antigen Ab, IgG <9.0 0.0 - 8.9 U/mL 10/09/2024 2:16 PM EDT [facility] Comment: Negative < 9.0 Equivocal 9.0 - 10.9 Positive >10.9 Serum Frozen 10/07/2024 6:37 PM EDT 10/09/2024 3:07 PM EDT Narrative [facility] - 10/09/2024 3:07 PM EDT PERFORMED AT: [address] [id number] TOOL ROOM MACHINIST: Bassam Khalil, PhD PHONE: [phone] Gerri Peterson MD LAB BLOOD ORDERABLES Final Resu lt Performing Organization Address [facility] Co de Phone Number [facility] [address] [place] [address] * Toxoplasma gondii antibody, IgG (10/07/2024 6:37 PM EDT) Pathologist [facility] Toxoplasma Gondii IgG <3.0 0.0 - 7.1 IU/mL 10/09/2024 7:53 AM EDT [facility] Comment: Negative <7.2 Equivocal 7.2 - 8.7 Positive >8.7 Serum 10/07/2024 6:37 PM EDT 10/09/2024 8:07 AM EDT Narrative [facility] - 10/09/2024 8:07 AM EDT PERFORMED AT: [address] [id number] TOOL ROOM MACHINIST: Bassam Khalil, PhD PHONE: [phone] Gerri Peterson MD LAB BLOOD ORDERABLES Final Resu lt Performing Organization Address City/[facility]/ZIP Co de Phone Number [facility] [address] [place] [address] * HIV-1 and HIV-2 Antibodies w Reflex (10/07/2024 6:37 PM EDT) HIV 1+2 AB/AGN Nonreactive Nonreactive 10/07/2024 7:54 PM EDT [facility] Serum 10/07/2024 6:37 PM EDT 10/07/2024 7:06 PM EDT Narrative [facility] - 10/07/2024 7:54 PM EDT \HIVRNR Gerri Peterson MD LAB BLOOD ORDERABLES Final Resu lt [facility] [address] [place] [address], [facility] * (ABNORMAL) Varicella zoster antibody, IgG (10/07/2024 6:37 PM EDT) Varicella IgG Positive( A) Negative S/CO 10/07/2024 8:34 PM EDT [facility] Comment:Result indicates the presence of detectable VZV IgG antibodies. A positive result is generally indicative of exposure to the pathogen or administration of specific immunoglobulins, but it is no indication of active infection or stage of disease. This test is not approved for determining vaccine-induced immunity to varicella zoster virus. VZV NUM 6.76(H) 0.00 - 0.99 S/CO 10/07/2024 8:34 PM EDT [facility] Serum 10/07/2024 6:37 PM EDT 10/07/2024 6:50 PM EDT Gerri Peterson MD LAB BLOOD ORDERABLES Final Resu lt Performing Organization Address [facility]/ZIP Co de Phone Number [facility] [address] [facility]. [address] * TSH (Thyroid Stimulating Hormone) (10/07/2024 6:37 PM EDT) Only the most recent of2 resultswithin the time period is included. TSH 0.81 0.45 - 4.12 uIU/mL 10/07/2024 8:17 PM EDT [facility] Serum 10/07/2024 6:37 PM EDT 10/07/2024 6:50 PM EDT Gerri Peterson MD LAB BLOOD ORDERABLES Final Resu lt [facility] [address] * IgA (10/07/2024 6:37 PM EDT) IgA 227.0 70.0 - 400.0 mg/dL 10/08/2024 11:07 AM EDT [facility] Comment:Please interpret the se findings in conjunction with clinical findings, protein electrophoresis, and immunotyping/immunofixation results. Serum 10/07/2024 6:37 PM EDT 10/07/2024 6:50 PM EDT us Gerri Peterson MD LAB BLOOD ORDERABLES Final Resu lt [facility] [address] * (ABNORMAL) Lipid Profile (10/07/2024 6:37 PM EDT) Non-HDL Cholesterol, Calculated See Note 0 - 129 mg/dL 10/07/2024 7:42 PM EDT [facility] Comment: Desirable: < 130 mg/dL Above Desirable: 130-159 mg/dL Borderline High: 160-189 mg/dL High: 190-219 mg/dL Very High: > 219 mg/dL Unable to calculate result either because contributing result(s) are outside of reportable range or are not available. Cholesterol, Total <25 0 - 200 mg/dL 10/07/2024 7:42 PM EDT [facility] Triglycerides 30 10 - 149 mg/dL 10/07/2024 7:42 PM EDT [facility] HDL 4(L) 60 - 92 [...] Cholesterol See Note mg/dL 7:42 PM EDT [facility] Comment:Unable to calculate result either because contributing result(s) are outside of reportable range or are not available. Plasma 10/07/2024 6:37 PM EDT 10/07/2024 7:06 PM EDT Narrative [facility] - 10/07/2024 7:42 PM EDT LDL cholesterol calculated using the Friedewald equation. us Gerri Peterson MD LAB BLOOD ORDERABLES Final Resu lt [facility] [address] * X-ray Mandible minimum 4-views (10/07/2024 [...] IMAGING ORDERABL ES Final Result * US Duplex Bik-Lzz-Oifangs Comp (10/07/2024 3:48 PM EDT) Only the most recent of4 resultswithin the time period is included. Anatomical Region Laterality Modality Abdomen, Pelvis, Testes, [...] EXAM: US ABDOMEN COMPLETE EXAM: US DUPLEX [id number] COMPLETE INDICATION: elevated bilirubin COMPARISON: Ultrasound and [...] EXAM: US ABDOMEN COMPLETE EXAM: US DUPLEX [id number] COMPLETE INDICATION: elevated bilirubin COMPARISON: Ultrasound and [...] 10/07/2024 4:26 PM EDT us Bisi Hernandez [facility] US ORDERABLES Final Result * US Abdomen Complete (10/07/2024 3:48 PM EDT) Only the most recent of3 resultswithin the time period is included. Anatomical Region Laterality Modality Abdomen Ultrasound 10/07/2024 [...] EXAM: US ABDOMEN COMPLETE EXAM: US DUPLEX [id number] COMPLETE INDICATION: elevated bilirubin COMPARISON: Ultrasound and [...] EXAM: US ABDOMEN COMPLETE EXAM: US DUPLEX [id number] COMPLETE INDICATION: elevated bilirubin COMPARISON: Ultrasound and [...] Rodriguez MD at 10/07/2024 4:26 PM EDT Bisi Akana maría DOZIER [facility] US ORDERABLES Final Result * AFP Tumor Marker (10/07/2024 6:00 AM EDT) Only the most recent of3 resultswithin the time period is included. Pathologist [facility] AFP-Tumor Marker 2.0 0.0 - 9.0 ng/mL 10/07/2024 7:11 AM EDT [facility] Serum 10/07/2024 6:00 AM EDT 10/07/2024 6:39 AM EDT Narrative [facility] - 10/07/2024 7:11 AM EDT The testing method for AFP is a chemiluminescent immunoassay manufactured by [employer] Concentrations of AFP obtained by different assay methods or kits may vary and cannot be used interchangeably. AFP results cannot be interpreted as absolute evidence of the presence or absence of malignant disease. Ni Rivera MD LAB BLOOD ORDERABLES Final Resul t [facility] [address] [place], [place] [id number] * Osmolality (10/06/2024 2:50 PM EDT) Pathologist [facility] Osmolality, Measured 304 278 - 305 mOsm/kg 10/06/2024 3:49 PM EDT [facility] Serum 10/06/2024 2:50 PM EDT 10/06/2024 2:56 PM EDT Jani Vanegas MD LAB BLOOD ORDERABLES Final Resul t [facility] [address] [place] [address], [facility] * CT Head WO contrast (10/06/2024 [...] Abrams MD at 10/06/2024 4:50 PM EDT Kush Posada MD, PhD IMG CT ORDERABLES Fin al Result * Sodium, urine, random (10/06/2024 1:25 PM EDT) Only the most recent of6 resultswithin the time period is included. Sodium, Ur <10 mmol/L 10/06/2024 1:56 PM EDT [facility] Comment:Reference range not established for this test. Urine 10/06/2024 1:25 PM EDT 10/06/2024 1:32 PM EDT Jani Vanegas MD URINE ORDERABLES Final Result Performing Organization Address [facility] Co de Phone Number [facility] [address] [place] [address]. [address] * Potassium, urine, random (10/06/2024 1:25 PM EDT) Only the most recent of4 resultswithin the time period is included. Potassium Urine Random 50.0 mmol/L 10/06/2024 1:56 PM EDT [facility] Comment:Reference range not established for this test. Urine 10/06/2024 1:25 PM EDT 10/06/2024 1:32 PM EDT Jani Vanegas MD URINE ORDERABLES Final Result Performing Organization Address [facility] Co de Phone Number [facility] [address] [place] [address]. [address] * Osmolality, Urine (10/06/2024 1:25 PM EDT) Only the most recent of2 resultswithin the time period is included. Osmolality, Ur 386 50 - 1,200 mOsm/kg 10/06/2024 1:55 PM EDT [facility] Urine 10/06/2024 1:25 PM EDT 10/06/2024 1:32 PM EDT us Jani Vanegas MD URINE ORDERABLES Final Result Performing Organization Address [facility] de Phone Number [facility] [address] * Creatinine, Urine, Random (10/06/2024 1:25 PM EDT) Only the most recent of4 resultswithin the time period is included. Creatinine, Urine 87.40 mg/dL 10/06/2024 1:56 PM EDT [facility] Comment:Reference range not established for this test. Urine 10/06/2024 1:25 PM EDT 10/06/2024 1:32 PM EDT us Jani Vanegas MD URINE ORDERABLES Final Result Performing Organization Address [facility] de Phone Number [facility] [address] [facility]. [address] * Chloride, urine, random (10/06/2024 1:25 PM EDT) Only the most recent of4 resultswithin the time period is included. Chloride, Ur <15 mmol/L 10/06/2024 1:56 PM EDT [facility] Comment:Reference range not established for this test. Urine 10/06/2024 1:25 PM EDT 10/06/2024 1:32 PM EDT us Jani Vanegas MD URINE ORDERABLES Final Result Performing Organization Address [facility] de Phone Number [facility] [address] * Urinalysis w/Rfl to Microscopic (10/06/2024 11:51 AM EDT) Color, UA Yellow Yellow,Straw 10/06/2024 12:25 PM EDT [facility] Clarity, UA Clear Clear 10/06/2024 12:25 PM EDT [facility] Specific [place], UA 1.014 1.005 - 1.035 10/06/2024 12:25 PM EDT [facility] pH, UA 6.0 5.0 - 8.0 10/06/2024 12:25 PM EDT [facility] Protein, UA Negative Negative mg/dL 10/06/2024 12:25 PM EDT [facility] Glucose, UA Negative Negative mg/dL 10/06/2024 12:25 PM EDT [facility] Ketones, UA Negative Negative mg/dL 10/06/2024 12:25 PM EDT [facility] Bilirubin, UA Negative Negative 10/06/2024 12:25 PM EDT [facility] Blood, UA Negative Negative 10/06/2024 12:25 PM EDT [facility] Nitrite, UA Negative Negative 10/06/2024 12:25 PM EDT [facility] Urobilinogen, UA <2.0 0.2 - 1.9 mg/dL 10/06/2024 12:25 PM EDT [facility] Leukocyte Esterase, UA Negative Negative 10/06/2024 12:25 PM EDT [facility] Urine 10/06/2024 11:5 1 AM EDT 10/06/2024 11:57 AM EDT Narrative [facility] - 10/06/2024 12:25 PM EDT Microscopic testing is not performed when the dipstick is negative for blood, leukocyte, protein and nitrite. us Bisi Hernandez DO URINE ORDERABLES Final Result Performing Organization Address City/[facility]/ZIP Co de Phone Number [facility] [address] * Lactic Acid, STAT (10/06/2024 7:38 AM EDT) Only the most recent of5 resultswithin the time period is included. Lactate 0.9 0.5 - 2.2 mmol/L 10/06/2024 8:05 AM EDT [facility] Plasma 10/06/2024 7:38 AM EDT 10/06/2024 7:42 AM EDT us Jani Vanegas MD LAB BLOOD ORDERABLES Final Resul t [facility] [address] [place] [id number], [facility] * (ABNORMAL) Venous Blood Gas, Line/Syringe, STAT (10/06/2024 7:37 AM EDT) Only the most recent of10 resultswithin the time period is included. PH-Line Draw 7.27(L) 7.32 - 7.42 10/06/2024 7:46 AM EDT [facility] PCO2-Line Draw 36(L) 41 - 51 mm Hg 10/06/2024 7:46 AM EDT [facility] PO2-Line Draw 44(H) 25 - 40 mm Hg 10/06/2024 7:46 AM EDT [facility] HCO3-Line Draw 17(L) 24 - 28 mmol/L 10/06/2024 7:46 AM EDT [facility] CO2 Content-Line Draw 18(L) 25 - 29 mmol/L 10/06/2024 7:46 AM EDT [facility] Base Excess-Line Draw -9.6(L) -2.0 - 3.0 mmol/L 10/06/2024 7:46 AM EDT [facility] %HBO2-Line Draw 69.8 40.0 - 70.0 % 10/06/2024 7:46 AM EDT [facility] Carboxyhgb-Ludivina e Draw 0.7 % 10/06/2024 7:46 AM EDT [facility] Comment: CARBOXYHEMOGLOBIN (CO) REFERENCE RANGES: Non-Smokers: <2 % Smokers: <8 % TOXIC: >20 % Methemoglobin- Line Draw 0.3 0.0 - 1.5 % 10/06/2024 7:46 AM EDT [facility] Reduced Hemoglobin-Ludivina e Draw 29.2(H) 0.0 - 5.0 % 10/06/2024 7:46 AM EDT [facility] Venous, Line Draw 10/06/2024 7:37 AM EDT 10/06/2024 7:43 AM EDT Jani Vanegas MD LAB BLOOD ORDERABLES Final Resul t [facility] [address] [place] [address], [facility] * (ABNORMAL) Comprehensive Metabolic Panel (10/06/2024 7:37 AM EDT) Only the most recent of6 resultswithin the time period is included. Sodium 129(L) 133 - 146 mmol/L 10/06/2024 8:16 AM EDT [facility] Potassium 4.4 3.5 - 5.3 mmol/L 10/06/2024 8:16 AM EDT [facility] Chloride 100 98 - 110 mmol/L 10/06/2024 8:16 AM EDT [facility] CO2 18(L) 21 - 33 mmol/L 10/06/2024 8:16 AM EDT [facility] Anion Gap 11 3 - 16 mmol/L 10/06/2024 8:16 AM EDT [facility] BUN 62(H) 7 - 25 mg/dL 10/06/2024 8:16 AM EDT [facility] Creatinine 3.40(H) 0.60 - 1.30 mg/dL 10/06/2024 8:16 AM EDT [facility] Glucose 98 70 - 100 mg/dL 10/06/2024 8:16 AM EDT [facility] Calcium 9.5 8.6 - 10.3 mg/dL 10/06/2024 8:16 AM EDT [facility] Total Bilirubin 14.3(H) 0.0 - 1.5 mg/dL 10/06/2024 8:16 AM EDT [facility] AST 57(H) 13 - 39 U/L 10/06/2024 8:16 AM EDT [facility] ALT 29 7 - 52 U/L 10/06/2024 8:16 AM EDT [facility] Alkaline Phosphatase 158(H) 36 - 125 U/L 10/06/2024 8:16 AM EDT [facility] Total Protein 5.6(L) 6.4 - 8.9 g/dL 10/06/2024 8:16 AM EDT [facility] Albumin 3.6 3.5 - 5.7 g/dL 10/06/2024 8:16 AM EDT [facility] Osmolality, Calculated 286 278 - 305 mOsm/kg 10/06/2024 8:16 AM EDT [facility] EGFR 22 10/06/2024 8:16 AM EDT [facility] Comment:As of 2021, the [...] 7:37 AM EDT 10/06/2024 7:43 AM EDT Jani Vanegas MD LAB BLOOD ORDERABLES Final Resul t Performing Organization Address [facility]/ZIP Co de Phone Number [facility] [address] * (ABNORMAL) Salicylate Level (10/06/2024 4:01 AM EDT) Pathologist [facility] Salicylate Lvl <3(L) 10 - 30 mg/dL 10/06/2024 4:58 AM EDT [facility] Serum 10/06/2024 4:01 AM EDT 10/06/2024 4:22 AM EDT Bisi Hernandez DO LAB BLOOD ORDERABLES Final Resul t Performing Organization Address [facility] Co de Phone Number [facility] [address] * Upper Respiratory Viral/Bacterial Panel-HOSPITAL PHARMACY TECHNICIAN Only (10/06/2024 3:12 AM EDT) Adenovirus Not Detected Not Detected 10/06/2024 11:38 PM EDT [facility] Coronavirus (229E,HKU1,NL63,OC 43) Not Detected Not Detected 10/06/2024 11:38 PM EDT [facility] SARS-CoV-2 Not Detected Not Detected 10/06/2024 11:38 PM EDT [facility] Human Metapneumovirus Not Detected Not Detected 10/06/2024 11:38 PM EDT [facility] Human Rhinovirus/Enterov irus Not Detected Not Detected 10/06/2024 11:38 PM EDT [facility] Influenza A Not Detected Not Detected 10/06/2024 11:38 PM EDT [facility] Influenza A H1 Not Detected Not Detected 10/06/2024 11:38 PM EDT [facility] Influenza A/H1-2009 Not Detected Not Detected 10/06/2024 11:38 PM EDT [facility] Influenza A H3 Not Detected Not Detected 10/06/2024 11:38 PM EDT [facility] Influenza B Not Detected Not Detected 10/06/2024 11:38 PM EDT [facility] Parainfluenza 1 Not Detected Not Detected 10/06/2024 11:38 PM EDT [facility] Parainfluenza 2 Not Detected Not Detected 10/06/2024 11:38 PM EDT [facility] Parainfluenza 3 Not Detected Not Detected 10/06/2024 11:38 PM EDT [facility] Parainfluenza 4 Not Detected Not Detected 10/06/2024 11:38 PM EDT [facility] Resp. Syncycial Virus A Not Detected Not Detected 10/06/2024 11:38 PM EDT [facility] Resp. Syncycial Virus B Not Detected Not Detected 10/06/2024 11:38 PM EDT [facility] Chlamydia pneumoniae Not Detected Not Detected 10/06/2024 11:38 PM EDT [facility] Mycoplasma pneumoniae Not Detected Not Detected 10/06/2024 11:38 PM EDT [facility] Comment: The Respiratory Viral-Bacterial Panel [...] Test results have been sent to the [facility] in accordance with state requirements. For a fact sheet for healthcare providers, see https://www.fda.gov/media/781371/download. For a fact sheet for patients, see https://www.fda.gov/media/788533/download. Nasopharyngeal Swab NASOPHARYNGEAL SWAB / Unknown 10/06/2024 3:12 AM EDT 10/06/2024 5:41 PM EDT Comment:HOSPITAL PHARMACY TECHNICIAN us Bisi Hernandez DO BODY FLUIDS AND STOOLS ORDERABLE S Final Result [facility] [address] [place], [place] [address] * X-ray Portable Chest (10/06/2024 1:16 AM EDT) Only the most recent of5 resultswithin the time period is included. Anatomical Region Laterality Modality Chest Radiographic Rachel [...] 10/06/2024 2:33 AM EDT Bisi Hernandez DO IMG DIAGNOSTIC IMAGING ORDERABLE S Final Result * Thyroid Function [place] (10/06/2024 1:04 AM EDT) TSH 0.84 0.45 - 4.12 uIU/mL 10/06/2024 2:20 AM EDT [facility] Serum 10/06/2024 1:04 AM EDT 10/06/2024 1:39 AM EDT Bisi Cherryana maría DOZIER LAB BLOOD ORDERABLES Final Resul t [facility] [address] [place] [address], [facility] * #2 Blood culture-Peripheral site 2 (10/06/2024 1:04 AM EDT) Only the most recent of6 resultswithin the time period is included. Culture Result No Growth After 5 Days [facility] Blood BLOOD SPECIMEN / Unknown 10/06/2024 1:04 AM EDT 10/06/2024 4:57 AM EDT Narrative [facility] - 10/11/2024 5:05 AM EDT Suboptimal volume of blood received. Interpret results with caution. Bisi Akana maría DOZIER MICROBIOLOGY - GENERAL ORDERABLE S Final Result [facility] [address] * (ABNORMAL) Acetaminophen Level (10/06/2024 1:04 AM EDT) Pathologist [facility] Acetaminophen Level <10(L) 10 - 30 ug/mL 10/06/2024 2:08 AM EDT [facility] Serum 10/06/2024 1:04 AM EDT 10/06/2024 1:30 AM EDT Bisi Mary DOZIER LAB BLOOD ORDERABLES Final Resul t Performing Organization Address City/[facility]/ZIP Co de Phone Number [facility] [address] [facility] * Renal Function Panel, Fasting (09/16/2024 12:20 PM EDT) [facility] EGFR 31 Anion Gap 14.3 <=30 mmol/L Plasma Gerri Peterson MD LAB BLOOD ORDERABLES Final Resu lt * (ABNORMAL) Differential (09/16/2024 12:20 PM EDT) Only the most recent of6 resultswithin the time period is included. Pathologist [facility] Neutrophils Relative 84.2 Immature Granulocytes (%) 0.5 Immature Granulocytes Absolute 0.05 nRBC 0 Absolute Lymphocytes 0.8 Lymphocytes Relative 8.0 Eosinophils Relative 1.5 Basophils Relative 0.7 Monocytes Relative 5.1 Monocytes Absolute 0.5 RDW 21.4(A) 11.5 - 14.5 % Eosinophils Absolute 0.2 / L Basophils Absolute 0.1 / L MCHC 36.1 30 - 37 g/dL MPV 12.3(A) 7.5 - 11.5 fL Whole Blood Result [facility] Gerri Peterson MD LAB BLOOD ORDERABLES Final Resu lt * CBC and differential (09/16/2024 12:20 PM EDT) Neutrophils Absolute 8.4 / L Blood Result [facility] Gerri Peterson MD LAB BLOOD ORDERABLES Final Resu lt * Glucose, random (09/16/2024 12:20 PM EDT) Glucose 97 60 - 200 mg/dL Plasma Result [facility] Gerri Peterson MD LAB BLOOD ORDERABLES Final Resu lt * (ABNORMAL) Hepatic function panel (09/16/2024 12:20 PM EDT) Alkaline Phosphatase 144 U/L ALT 40 U/L AST 76 U/L Total Bilirubin 19.8(A) 0.1 - 1.4 mg/dL Protein, Total 6.3 Albumin 3.4(A) 3.5 - 5.0 g/dL Blood Result [facility] Gerri Peterson MD LAB BLOOD ORDERABLES Final Resu lt * (ABNORMAL) Renal Function Panel w/o EGFR (09/16/2024 12:20 PM EDT) Creatinine 2.30 BUN 31(A) 4 - 21 mg/dL Potassium 3.3(A) 3.4 - 5.3 mmol/L Sodium 136(A) 137 - 147 mmol/L Chloride 110(A) 99 - 108 mmol/L Calcium 9.3 8.7 - 10.7 mg/dL Blood Result [facility] Gerri Peterson MD LAB BLOOD ORDERABLES Final Resu lt * EKG - scan (09/10/2024 7:11 AM EDT) Only the most recent of2 resultswithin the time period is included. us Scanning [place] SCAN DOCS - NO RESULTS Final Res ult * Anaerobic culture (09/09/2024 2:56 PM EDT) Culture Result No Anaerobes Isolated in 5 Days [facility] Peritoneal Fluid ABDOMEN / Unknown 2024 2:56 PM EDT 09/09/2024 4:12 PM EDT us Ashley JACOME MICROBIOLOGY - GENERAL ORDERA BLES Final Result [facility] [address] [facility] [place] [address], [facility] * PARACENTESIS (09/09/2024 2:19 PM EDT) [...] SURGICAL ORDE RABLES Final Result * (ABNORMAL) Clostridium difficile DNA Amplification (09/09/2024 4:58 AM EDT) Pathologist [facility] Clost. Diff DNA Amp. Positive( A) Negative [...] 09/09/2024 6:44 AM EDT Comment:F us Kathie Bauer MD BODY FLUIDS AND STOOLS ORDERA BLES Final Result Performing Organization Address [facility] de Phone Number [facility] [address] [facility]. [address] * Clostridium Difficile Toxin A/B Antigen (09/09/2024 4:58 AM EDT) [facility] CDIFF Tox AGN Negative Negative 09/09/2024 1:57 [...] AM EDT 09/09/2024 11:57 AM EDT Comment:F Kathie Bauer MD BODY FLUIDS AND STOOLS ORDERA BLES Final Result Performing Organization Address [facility] Co de Phone Number [facility] [address] [facility] * Phosphorus, AM (09/05/2024 7:24 AM EDT) Only the most recent of5 resultswithin the time period is included. [facility] Phosphorus 2.1 2.1 - 4.7 mg/dL 09/05/2024 8:25 AM EDT [facility] Plasma 09/05/2024 7:24 AM EDT 09/05/2024 7:38 AM EDT us Kiet Ramirez MD LAB BLOOD ORDERABLES Denisse tori Result [facility] [address] [place] [address], [facility] * (ABNORMAL) Basic Metabolic panel, AM (09/05/2024 7:24 AM EDT) Only the most recent of12 resultswithin the time period is included. Sodium 134 133 - 146 mmol/L 09/05/2024 8:25 AM EDT [facility] Potassium 3.6 3.5 - 5.3 mmol/L 09/05/2024 8:25 AM EDT [facility] Chloride 107 98 - 110 mmol/L 09/05/2024 8:25 AM EDT [facility] CO2 19(L) 21 - 33 mmol/L 09/05/2024 8:25 AM EDT [facility] Anion Gap 8 3 - 16 mmol/L 09/05/2024 8:25 AM EDT [facility] BUN 42(H) 7 - 25 mg/dL 09/05/2024 8:25 AM EDT [facility] Creatinine 2.92(H) 0.60 - 1.30 mg/dL 09/05/2024 8:25 AM EDT [facility] Glucose 108(H) 70 - 100 mg/dL 09/05/2024 8:25 AM EDT [facility] Calcium 8.6 8.6 - 10.3 mg/dL 09/05/2024 8:25 AM EDT [facility] Osmolality, Calculated 289 278 - 305 mOsm/kg 09/05/2024 8:25 AM EDT [facility] EGFR 27 09/05/2024 8:25 AM EDT [facility] Comment:As of 2021, the [...] ORDERABLES Denisse l Result Performing Organization Address City/[facility] Co de Phone Number [facility] [address] * ECG 12 lead (MUSE) (09/05/2024 4:57 AM EDT) 09/05/2024 4:57 AM EDT Narrative MUSE - 09/06/2024 7:31 AM EDT Ventricular Rate: 78 BPM Atrial Rate: 78 BPM P-R Interval: 196 ms QRS Duration: 100 ms QT: 362 ms QTc: 412 ms P [place]: 69 degrees R [place]: -23 degrees T [place]: 10 degrees Diagnosis Line: NORMAL SINUS RHYTHM ^ NONSPECIFIC T WAVE CHANGE ^ ABNORMAL ECG ^ ^ Confirmed by MD DELPHINE, FLOYD ([id number]) on 09/06/2024 7:31:28 AM us Kathie Bauer MD ECG ORDERABLES Final Result Performing Organization Address City/[facility] Co de Phone Number MUSE * Fluid Creatinine (09/04/2024 11:01 AM EDT) Creat, Fluid 3.17 mg/dL 09/04/2024 6:15 PM EDT [facility] Comment:Reference range not established for this test. Abdominal Fluid ABDOMEN / Unknown 025 11:01 AM EDT 09/04/2024 5:25 PM EDT Narrative [facility] - 09/04/2024 6:15 PM EDT This assay has been modified from the cardiology tech's specifications and has been validated with performance characteristics determined by [facility] in accordance with federal regulations under the Clinical Laboratory Act Amendment of 1988. The modification has not been approved by the FDA which has determined that such approval is not necessary. The test is for clinical purposes and should not be regarded as investigational or for research use. Kiet Ramirez MD BODY FLUIDS AND STOOLS OR DERABLES Final Result Performing Organization Address [facility]/ZIP Co de Phone Number [facility] [address] * Protein, Body fluid (09/04/2024 11:01 AM EDT) Only the most recent of3 resultswithin the time period is included. Protein, Fluid <3.0 g/dL 09/04/2024 6:15 PM EDT [facility] Comment:Reference range not established for this test. Ascitic Fluid ABDOMEN / Unknown 11:01 AM EDT 09/04/2024 5:25 PM EDT Narrative [facility] - 09/04/2024 6:15 PM EDT This assay has been modified from the cardiology tech's specifications and has been validated with performance characteristics determined by [facility] in accordance with federal regulations under [...] OR DERABLES Final Result Performing Organization Address [facility] Co de Phone Number [facility] [address] [facility] * Albumin, fluid (09/04/2024 11:01 AM EDT) Only the most recent of3 resultswithin the time period is included. Albumin, Fluid <1.5 g/dL 09/04/2024 6:15 PM EDT [facility] Comment:Reference range not established for this test. Abdominal Fluid ABDOMEN / Unknown 025 11:01 AM EDT 09/04/2024 5:25 PM EDT Narrative [facility] - 09/04/2024 6:15 PM EDT This assay has been modified from the cardiology tech's specifications and has been validated with performance characteristics determined by [facility] in accordance with federal regulations under the Clinical Laboratory Act Amendment of 1988. The modification has not been approved by the FDA which has determined that such approval is not necessary. The test is for clinical purposes and should not be regarded as investigational or for research use. Kiet Ramirez MD BODY FLUIDS AND STOOLS OR DERABLES Final Result Performing Organization Address [facility] de Phone Number [facility] [address] * Calcium Free, Serum (09/04/2024 5:22 AM EDT) Free Calcium, Ser 4.93 4.40 - 5.40 mg/dL 09/04/2024 5:44 AM EDT [facility] Comment:Free calcium levels vary inversely with pH by approximately 5% for each 0.1 unit of pH change. Assay results have been normalized to pH = 7.40. Serum 09/04/2024 5:22 AM EDT 09/04/2024 5:27 AM EDT Narrative [facility] - 09/04/2024 5:44 AM EDT This test has been developed and its performance characteristics determined by [facility] which is certified under the Clinical Laboratory Improvement Amendment of 1988 (CLIA-88) to perform high complexity testing. The test has not been cleared or approved by the US Food and Drug Administration (FDA). The FDA has determined that such clearance is not necessary. The test should be used for clinical purposes and is not regarded as investigational. us Kiet Ramirez MD LAB BLOOD ORDERABLES Denisse l Result Performing Organization Address [facility] de Phone Number [facility] [address] * Lipase (09/04/2024 5:22 AM EDT) Only the most recent of4 resultswithin the time period is included. Lipase 40 4 - 82 U/L 09/04/2024 11:41 AM EDT [facility] Plasma 09/04/2024 5:22 AM EDT 09/04/2024 11:23 AM EDT Kiet Ramirez MD LAB BLOOD ORDERABLES Denisse l Result Performing Organization Address [facility] Co de Phone Number [facility] [address] [facility] * MRSA/Staph aureus DNA ??? Diagnostic testing for pneumonia (09/03/2024 3:21 PM EDT) MRSA, PCR Negative Negative 09/03/2024 7:48 PM EDT [facility] Staph Aureus, PCR Negative Negative 09/03/2024 7:48 PM EDT [facility] Comment:Test method is a FDA approved amplified DNA assay. Nares Swab BOTH ANTERIOR NARES / Unknown 09/03/2024 3:21 PM EDT 09/03/2024 4:25 PM EDT Narrative [facility] - 09/03/2024 7:48 PM EDT Diagnosis of MRSA Pneumonia->Yes - Place [id number] (this order) Kiet Ramirez MD MICROBIOLOGY - GENERAL OR DERABLES Final Result Performing Organization Address [facility] Co de Phone Number [facility] [address] [facility] * (ABNORMAL) Urine Drug Screen without Confirmation, STAT (09/03/2024 3:21 PM EDT) Amphetamine, 500 ng/mL Cutoff Negative Negative 09/03/2024 4:17 PM EDT [facility] Barbiturates UR, 300 ng/mL Cutoff Negative Negative 09/03/2024 4:17 PM EDT [facility] Buprenorphine, 5 ng/mL Cutoff Negative Negative 09/03/2024 4:17 PM EDT [facility] Benzodiazepines UR, 300 ng/mL Cutoff Negative Negative 09/03/2024 4:17 PM EDT [facility] Cocaine UR, 300 ng/mL Cutoff Negative Negative 09/03/2024 4:17 PM EDT [facility] Methadone, UR, 300 ng/mL Cutoff Negative Negative 09/03/2024 4:17 PM EDT [facility] Opiates UR, 300 ng/mL Cutoff Presumptive Positive(A) Negative 09/03/2024 4:17 PM EDT [facility] Oxycodone, 100 ng/mL Cutoff Negative Negative 09/03/2024 4:17 PM EDT [facility] Tricyclic Antidepressants, 300 ng/mL Cutoff Negative Negative 09/03/2024 4:17 PM EDT [facility] Comment:This test has been d eveloped and its performance characteristics determined by [facility] which is certified under [...] Cutoff Negative Negative 09/03/2024 4:17 PM EDT [facility] Comment:This is a screening method only and may be associated with false positive and/or false negative results. Results are not definitive without additional confirmatory testing by mass spectrometry. Fentanyl, 2 ng/mL Cutoff Negative Negative 09/03/2024 4:17 PM EDT [facility] Comment:This test has been d eveloped and its performance characteristics determined by [facility] which is certified under [...] Ramirez MD URINE ORDERABLES Final Re sult [facility] [address] * Urea Nitrogen, Urine (09/03/2024 3:21 PM EDT) Only the most recent of2 resultswithin the time period is included. Pathologist [facility] Urea Nitrogen, Ur 350 mg/dL 09/03/2024 4:12 PM EDT [facility] Comment:Reference range not established for this test. Urine 09/03/2024 3:21 PM EDT 09/03/2024 3:30 PM EDT Kiet Ramirez MD URINE ORDERABLES Final Re sult Performing Organization Address [facility] Co de Phone Number [facility] [address] [facility] * Hepatitis B Core IgM (09/03/2024 1:43 PM EDT) [facility] Hep B Core IgM Nonreactive Nonreactive 09/03/2024 3:50 PM EDT [facility] Serum 09/03/2024 1:43 PM EDT 09/03/2024 2:17 PM EDT Narrative [facility] - 09/03/2024 3:50 PM EDT The result will be immediately released to [facility] when marked final. Do you believe the result release to [facility] should be delayed based on either the Preventing Harm or Privacy exceptions of the Cures Rule?->No IgM anti-HBc not detected. Does not exclude the possibility of exposure to or infection with HBV. Kiet Ramirez MD LAB BLOOD ORDERABLES Denisse l Result Performing Organization Address [facility]/ZIP Co de Phone Number [facility] [address] [facility]. [address] * T4, Free (09/03/2024 1:43 PM EDT) [facility] Free T4 0.74 0.61 - 1.76 ng/dL 09/03/2024 6:34 PM EDT [facility] Comment:Biotin megadosing (c onsumption >300 mcg/day) may falsely elevate free T4. When indicated, discontinue megadosing for 1 week and repeat testing. Serum 09/03/2024 1:43 PM EDT 09/03/2024 2:17 PM EDT Kiet Ramirez MD LAB BLOOD ORDERABLES Denisse l Result Performing Organization Address [facility]/ZIP Co de Phone Number [facility] [address] [facility]. [address] * (ABNORMAL) Urinalysis, Microscopic (09/03/2024 10:28 AM EDT) Only the most recent of3 resultswithin the time period is included. RBC, UA 1 0 - 3 /HPF 09/03/2024 11:51 AM EDT [facility] WBC, UA 1 0 - 5 /HPF 09/03/2024 11:51 AM EDT [facility] Squam Epithel, UA <1 0 - 5 /HPF 09/03/2024 11:51 AM EDT [facility] Bacteria, UA Occasional (A) None Seen /HPF 09/03/2024 11:51 AM EDT [facility] Mucus, UA Present(A) None Seen /HPF 09/03/2024 11:51 AM EDT [facility] Urine 09/03/2024 10:2 8 AM EDT 09/03/2024 11:24 AM EDT us Kiet Ramirez MD URINE ORDERABLES Final Re sult Performing Organization Address [facility]/ZIP Co de Phone Number [facility] [address] [facility] * (ABNORMAL) Urinalysis-Macroscopic w/Rfx to Microsco (09/03/2024 10:28 AM EDT) Only the most recent of3 resultswithin the time period is included. Color, UA Yellow Yellow,Straw 09/03/2024 11:51 AM EDT [facility] Clarity, UA Cloudy(A) Clear 09/03/2024 11:51 AM EDT [facility] Specific [place], UA >1.035(H) 1.005 - 1.035 09/03/2024 11:51 AM EDT [facility] pH, UA 6.5 5.0 - 8.0 09/03/2024 11:51 AM EDT [facility] Protein, UA Trace(A) Negative mg/dL 09/03/2024 11:51 AM EDT [facility] Glucose, UA Negative Negative mg/dL 09/03/2024 11:51 AM EDT [facility] Ketones, UA Negative Negative mg/dL 09/03/2024 11:51 AM EDT [facility] Bilirubin, UA Small(A) Negative 09/03/2024 11:51 AM EDT [facility] Blood, UA Negative Negative 09/03/2024 11:51 AM EDT [facility] Nitrite, UA Negative Negative 09/03/2024 11:51 AM EDT [facility] Urobilinogen, UA <2.0 0.2 - 1.9 mg/dL 09/03/2024 11:51 AM EDT [facility] Leukocyte Esterase, UA Negative Negative 09/03/2024 11:51 AM EDT [facility] Urine 09/03/2024 10:2 8 AM EDT 09/03/2024 10:55 AM EDT us Kiet Ramirez MD URINE ORDERABLES Final Re sult [facility] [address] [address], [facility] * Lactic acid, venous (09/03/2024 7:55 AM EDT) Only the most recent of3 resultswithin the time period is included. Lactate, Shakeel 1.8 0.5 - 2.2 mmol/L 09/03/2024 8:02 AM EDT [facility] Whole Blood VENOUS STRUCTURE / Unknown 09/03/2024 7:55 AM EDT 09/03/2024 7:59 AM EDT us Jarrod Alas MD LAB BLOOD ORDERABLES Final Res ult Performing Organization Address City/[facility]/ZIP Co de Phone Number [facility] [address] * High Sensitivity Troponin (60min) (09/03/2024 7:18 AM EDT) Only the most recent of2 resultswithin the time period is included. High Sensitivity Troponin 14 0 - 20 ng/L 09/03/2024 7:49 AM EDT [facility] Serum 09/03/2024 7:18 AM EDT 09/03/2024 7:18 AM EDT Narrative [facility] - 09/03/2024 7:49 AM EDT Please draw 60min after time that first troponin is drawn. us Rommel Garland MD LAB BLOOD ORDERABLES Final Resul t Performing Organization Address [facility]/ZIP Co de Phone Number [facility] [address] * Paracentesis (09/03/2024 7:01 AM EDT) Narrative Ana Maria Ramey MD - 09/03/2024 7:01 AM EDT Rommel Garland MD 09/03/2024 7:02 AM Paracentesis Date/Time: 09/03/2024 7:01 AM Performed by: Rommel Garland MD Authorized by: Ana Maria Ramey MD Consent: Consent obtained: Written Consent given by: Patient Risks, benefits, and alternatives were discussed: yes Risks discussed: Bleeding, bowel perforation, infection and pain Alternatives discussed: No treatment [place] protocol: Procedure explained and questions answered to [...] quadrant Fluid removed amount: 1L Fluid appearance: Kajal and bloody Dressinx4 sterile gauze and adhesive bandage Post-procedure details: Procedure completion: Tolerated Ana Maria Ramey MD PROCEDURE/MINOR SURGICAL ORDERA BLES Final Result * CT Abdomen and Pelvis [...] at 09/03/2024 6:46 AM EDT us Rommel Garland MD IMG CT ORDERABLES Final Result * ECG for indication of dyspnea (09/03/2024 5:32 AM EDT) 09/03/2024 5:3 2 AM EDT Narrative MUSE - 09/03/2024 8:00 AM EDT Ventricular Rate: 90 BPM Atrial Rate: 90 BPM P-R Interval: 190 ms QRS Duration: 104 ms QT: 456 ms QTc: 557 ms P [place]: 76 degrees R [place]: -37 degrees T [place]: 16 degrees Diagnosis Line: INTERPRETATION NOT AVAILABLE--ECG READ IN ER ^ Reconfirmed by PHYSICIAN, ER ([id number]), editor magazine Tonya BUTLER ([id number]) on 09/03/2024 8:00:24 AM us Rommel Garland MD ECG ORDERABLES Edited Result - Final MUSE * XR Portable Feeding Tube Check (08/14/2024 2:11 PM EDT) Anatomical Region Laterality Modality Abdomen, Chest Radiographic Rachel ging 08/14/2024 1:53 PM EDT Impressions 08/14/2024 [...] at 08/14/2024 2:17 PM EDT Mak Armenta [facility] IMG DIAGNOSTIC IMAGING O RDERABLES Final Result * Paracentesis (08/14/2024 2:05 PM EDT) Mathieu Abraham MD - 08/14/2024 2:05 PM EDT Mathieu Becker MD 08/14/2024 2:06 PM Paracentesis Date/Time: 08/14/2024 2:05 PM Performed by: Mathieu Becker MD Authorized by: Mathieu Becker MD Consent: Consent obtained: Written Consent given by: Spouse Risks, benefits, and alternatives were discussed: yes Risks discussed: Bleeding and bowel perforation Alternatives discussed: No treatment [place] protocol: Procedure explained and questions answered to [...] PROCEDURE/MINOR SURGICAL ORDERAB LES Final Result * Triglycerides, Body Fluid (08/14/2024 12:31 PM EDT) Triglycerides, Fluid 18 mg/dL 08/14/2024 1:58 PM EDT [facility] Comment:Reference range not established for this test. Fluid ABDOMEN / Unknown 08/14/2024 12:31 PM EDT 08/14/2024 1:31 PM EDT Narrative [facility] - 08/14/2024 1:58 PM EDT This assay has been modified from the cardiology tech's specifications and has been validated with performance characteristics determined by [facility] in accordance with federal regulations under the Clinical Laboratory Act Amendment of 1988. The modification has not been approved by the FDA which has determined that such approval is not necessary. The test is for clinical purposes and should not be regarded as investigational or for research use. us Dex Jackman MD BODY FLUIDS AND STOOLS ORDERABL ES Final Result Performing Organization Address [facility] de Phone Number [facility] [address] [facility] * Amylase, Body fluid (08/14/2024 12:31 PM EDT) Amylase, Fluid 20 U/L 08/14/2024 2:00 PM EDT [facility] Comment:Reference range not established for this test. Abdominal Fluid ABDOMEN / Unknown 025 12:31 PM EDT 08/14/2024 1:31 PM EDT [facility] - 08/14/2024 2:00 PM EDT This assay has been modified from the cardiology tech's specifications and has been validated with performance characteristics determined by [facility] in accordance with federal regulations under the Clinical Laboratory Act Amendment of 1988. The modification has not been approved by the FDA which has determined that such approval is not necessary. The test is for clinical purposes and should not be regarded as investigational or for research use. us Dex Jackman MD BODY FLUIDS AND STOOLS ORDERABL ES Final Result Performing Organization Address [facility] de Phone Number [facility] [address] [facility] * Cytology, Peritoneal Fluid (08/14/2024 12:00 AM EDT) Peritoneal Fluid 08/14/2024 08/15/19 Narrative [facility] - 08/14/2024 12:00 AM EDT CASE: [id number] PATIENT: BLAIR ANDERSON Clinical History: 39M with decompensated EtOH cirrhosis Clinical Diagnosis: 39M with decompensated EtOH cirrhosis Specimen Source: A. Peritoneal Fluid Gross Description: Received 25ml Yellow Fluid CPT Code(s): 06697 X 1 Additional Information: DIAGNOSIS: Peritoneal Fluid (ThinPrep only): NO MALIGNANT CELLS IDENTIFIED INFLAMMATION: Mild acute and chronic inflammation Initial Evaluation performed by Jess CHAMBERS(ASCP) Business Services Assistant Electronically signed 08/15/2024 11:12:00 AM The Diagnostician signing this report is located at [facility], [address] [place] [address], [facility] [phone], CLIA ID: [id number] Final Diagnosis performed by RORO CABALLERO MD, PhD Pathologist Electronically signed 08/15/2024 11:27:00 AM The Pathologist signing this report is located at [facility], [address] [place] [address], [id number], , CLIA ID: [id number] us Dex Jackman MD PATHOLOGY/CYTOLOGY ORDERABLES F inal Result [facility] * CENTRAL LINE SINGLE LUMEN PERFORMABLE (08/13/2024 1:37 PM EDT) Mathieu Abraham MD - 08/13/2024 1:37 PM EDT Tavo [...] procedure chest x-ray ordered: yes Complications: none us Tavo Soni MD PROCEDURE/MINOR SURGICAL ORD ERABLES Final Result * Bedside focused transthoracic echocardiogram (08/12/2024 7:08 [...] when the images were obtained by the threshing machine operator AND/OR I reviewed the images after they were obtained. I have reviewed the interpretation by the threshing machine operator, made any necessary edits and agree with the interpretation as currently documented. Electronically signed by Eleazar Pitt on Thursday, August 15, 2024 at 12:56 PM us Delmar Montalvo MD BEDSIDE US ORDERABLES Final Resu lt * Bedside focused FAST ultrasound (08/12/2024 6:34 PM EDT) 08/12/2024 6:34 PM EDT Narrative [facility] - 08/15/2024 1:00 PM EDT Focused FAST Ultrasound Examination Exam category: Clinically indicated Indication(s) for Exam: Select one or more indications: other indication(s) Exam for ascites Views Obtained: Select all areas imaged (sales representative images/clips obtained): abdomen Findings: Other Findings: Moderate volume ascites noted Interpretation: Positive FAST FAST interpretation details: intra-abdominal fluid seen Attending Attestation: I (the Attending) was present when the images were obtained by the threshing machine operator AND/OR I reviewed the images after they were obtained. I have reviewed the interpretation by the threshing machine operator, made any necessary edits and agree with the interpretation as currently documented. Electronically signed by Eleazar Pitt on Thursday, August 15, 2024 at 1:00 PM us Donny Mesa MD BEDSIDE US ORDERABLES Final Re sult [facility] * US Abdomen Limited (07/29/2024 8:54 AM EDT) Anatomical Region Laterality Modality Abdomen, Pelvis Ultrasound 07/29/2024 8:20 AM EDT Impressions 07/29/2024 9:41 AM EDT IMPRESSION: ABDOMINAL ULTRASOUND Cirrhotic morphology of the liver with a recanalized periumbilical vein. Cholelithiasis. ABDOMINAL DOPPLER Reversal of flow in the main and right portal vein. Antegrade flow in the left portal vein to a recanalized periumbilical vein. Report Verified by: Scotty Wasserman MD at 07/29/2024 9:41 AM EDT Narrative 07/29/2024 9:41 AM EDT EXAM: US ABDOMEN LIMITED EXAM: US DUPLEX [id number] COMPLETE INDICATION: Other - Must specify in Comments field, cirrhosis, evaluate for portal vein thrombosis and ascites DATE: 07/29/2024 8:20 AM EDT COMPARISON: None available at this institution Technique: Grayscale imaging was performed for evaluation of the liver, gallbladder, common bile duct, pancreas, and right kidney; with limited grayscale and color Doppler evaluation of the upper abdominal aorta and inferior vena cava. Color and spectral (duplex) Doppler analysis of the hepatic vasculature was also performed. FINDINGS: The liver is increased in echogenicity with coarsening of the echotexture and nodularity of the hepatic surface. There is a large recanalized periumbilical vein. There is no evidence of intrahepatic or extrahepatic biliary ductal dilation. The common duct measures 5 mm at the charly hepatis. The gallbladder is distended. Layering gallstones are noted. There is no evidence of gallbladder wall thickening, pericholecystic fluid or sonographic Mehta sign. The visualized portion of the pancreatic neck and body appear normal. The remainder the pancreas is obscured. The visualized abdominal aorta is normal in caliber. The retrohepatic inferior vena cava is patent. The right kidney measures 11.5 cm in maximal length. Renal echogenicity is isoechoic to the echogenic liver, consistent with increased renal echogenicity and medical renal disease. There is mild collecting system dilation. Right nephrolithiasis is noted. Duplex Doppler interrogation of the hepatic vasculature was performed. There is reversal of flow in the main and right portal vein. Antegrade flow is seen within the left portal vein with a patent recanalized periumbilical vein. Antegrade flow seen within the main, right and left hepatic arteries. The resistive index in the main hepatic artery is 0.64-0.69, in the right hepatic artery is 0.63-0.69, of the left hepatic artery is 0.63-0.79. The right, middle and left hepatic veins are patent with flow towards the inferior vena cava. There is no visible ascites. Procedure Note Scotty Wasserman MD - 07/29/2024 EXAM: US ABDOMEN LIMITED EXAM: US DUPLEX [id number] COMPLETE INDICATION: Other - Must specify in Comments field, cirrhosis, evaluatefor portal vein thrombosis and ascites DATE: 07/29/2024 8:20 AM EDT COMPARISON: None available at this institution Technique: Grayscale imaging was performed for evaluation of the liver,gallbladder, common bile duct, pancreas, and right kidney; with limitedgrayscale and color Doppler evaluation of the upper abdominal aorta andinferior vena cava. Color and spectral (duplex) Doppler analysis of thehepatic vasculature was also performed. FINDINGS: The liver is increased in echogenicity with coarsening of the echotextureand nodularity of the hepatic surface. There is a large recanalizedperiumbilical vein. There is no evidence of intrahepatic or extrahepaticbiliary ductal dilation. The common duct measures 5 mm at the portahepatis. The gallbladder is distended. Layering gallstones are noted.There is no evidence of gallbladder wall thickening, pericholecystic fluidor sonographic Mehta sign. The visualized portion of the pancreatic neck and body appear normal. Theremainder the pancreas is obscured. The visualized abdominal aorta isnormal in caliber. The retrohepatic inferior vena cava is patent. The right kidney measures 11.5 cm in maximal length. Renal echogenicity isisoechoic to the echogenic liver, consistent with increased renalechogenicity and medical renal disease. There is mild collecting systemdilation. Right nephrolithiasis is noted. Duplex Doppler interrogation of the hepatic vasculature was performed.There is reversal of flow in the main and right portal vein. Antegradeflow is seen within the left portal vein with a patent recanalizedperiumbilical vein. Antegrade flow seen within the main, right and lefthepatic arteries. The resistive index in the main hepatic artery is0.64-0.69, in the right hepatic artery is 0.63-0.69, of the left hepaticartery is 0.63-0.79. The right, middle and left hepatic veins are patentwith flow towards the inferior vena cava. There is no visible ascites. IMPRESSION: ABDOMINAL ULTRASOUND Cirrhotic morphology of the liver with a recanalized periumbilical vein. Cholelithiasis. ABDOMINAL DOPPLER Reversal of flow in the main and right portal vein. Antegrade flow in the left portal vein to a recanalized periumbilicalvein. Report Verified by: Scotty Wasserman MD at 07/29/2024 9:41 AM EDT us Luisito Kerr MD IMG US ORDERABLES Denisse l Result * US Retroperitoneal complete (07/28/2024 7:15 AM EDT) Anatomical Region Laterality Modality Abdomen Ultrasound 07/28/2024 6:49 AM EDT Impressions 07/28/2024 7:33 AM EDT IMPRESSION: 1. Normal size kidneys with mild right hydronephrosis. Report Verified by: Doron Castro MD at 07/28/2024 7:33 AM EDT Narrative 07/28/2024 7:33 AM EDT EXAM: US RETROPERITONEAL COMPLETE INDICATION: renal ultrasound, acute kidney injury. DATE: 07/28/2024 6:49 AM EDT COMPARISON: None TECHNIQUE: Grayscale and color Doppler imaging acquisition was performed for evaluation of the kidneys and urinary bladder. FINDINGS: Right Kidney: 10.2 x 7.1 x 5.6 cm. There is mild hydronephrosis. Normal echogenicity. Left Kidney: 13.5 x 6.6 x 6.2 cm. There is no hydronephrosis. Normal echogenicity. Bladder: Evaluation of the bladder is limited, but is grossly unremarkable. Other: Nodular liver contour with coarse increased echogenicity and echotexture. Recanalized umbilical vein. Splenomegaly. Cholecystolithiasis. Procedure Note Doron Castro MD - 07/28/2024 EXAM: US RETROPERITONEAL COMPLETE INDICATION: renal ultrasound, acute kidney injury. DATE: 07/28/2024 6:49 AM EDT COMPARISON: None TECHNIQUE: Grayscale and color Doppler imaging acquisition was performedfor evaluation of the kidneys and urinary bladder. FINDINGS: Right Kidney: 10.2 x 7.1 x 5.6 cm. There is mild hydronephrosis. Normalechogenicity. Left Kidney: 13.5 x 6.6 x 6.2 cm. There is no hydronephrosis. Normalechogenicity. Bladder: Evaluation of the bladder is limited, but is grosslyunremarkable. Other: Nodular liver contour with coarse increased echogenicity andechotexture. Recanalized umbilical vein. Splenomegaly.Cholecystolithiasis. IMPRESSION: 1. Normal size kidneys with mild right hydronephrosis. Report Verified by: Doron Castro MD at 07/28/2024 7:33 AM EDT us Doron Botello MD IMG US ORDERABLES Final Re sult * Potassium (07/26/2024 6:44 AM EDT) Only the most recent of3 resultswithin the time period is included. Potassium 3.5 3.5 - 5.3 mmol/L 07/26/2024 7:34 AM EDT [facility] Plasma 07/26/2024 6:44 AM EDT 07/26/2024 6:54 AM EDT Mariola Farrell MD LAB BLOOD ORDERABLES Final Res ult [facility] [address] * ED HCV Ab Reflex To HCV Quant (07/25/2024 3:35 PM EDT) HCV Ab Nonreactive Nonreactive 07/25/2024 6:17 PM EDT [facility] Comment:Health Department no tified in accordance with reportable infectious disease guidelines. HCVAB Number 0.11 0.00 - 0.79 S/CO 07/25/2024 6:17 PM EDT [facility] Serum 07/25/2024 3:35 PM EDT 07/25/2024 3:49 PM EDT Sanchez Mathews MD LAB BLOOD ORDERABLES Final Resul t [facility] [address] [place] [address], [facility] from Last 3 Months Additional Health Concerns Infection Onset Date Last Indicated C. difficile 09/09/2024 09/09/2024 Insurance [facility] [employer] [facility] [employer] Advance Directives For more information, please contact: [phone] * Full Code (Latest Code Status on File) Date Activated Date Inactivated Comments 10/05/2024 11:47 PM * Full Code Date Activated Date Inactivated Comments 09/03/2024 9:42 AM 09/09/2024 10:30 PM * Full Code Date Activated Date Inactivated Comments 08/12/2024 9:55 PM 08/19/2024 4:56 PM * Full Code Date Activated Date Inactivated Comments 07/25/2024 10:25 PM 07/29/2024 6:17 PM Care Teams Event Security Officer Relationship Specialty Start Date End Date Enedina Mcguire NP [address] [place] [address] PCP - General Internal Medicine 10/05/24
--- OUTSIDE RECORDS SUMMARY | 2024-10-17 11:53 | XMS_ITS | Encounter Summary ---
Author Organization [facility] Address [address] [place] [address] Care Team Providers Care Electrical Electronics Technician Name Role Phone Enedina Mcguire NP Primary Care Provider [phone] Source Comments This information has been disclosed [...] release of HIV test results or diagnoses. [id number] Health Encounter Details Date Type Department Care Team (Late st Contact Info) Description 10/14/2024 Chart Note [facility] Transplant at [address] [place] [phone] Dean Robles [facility] [id number] Social History Tobacco Use Types Packs/Day Years Used Date Smoking Tobacco: Former Cigarettes Smokeless Tobacco: Current Alcohol Use Standard Drinks/Week Comments Yes 0 (1 standard drink = 0.6 oz pure alcohol) History of alcohol abuse, reports no use in 3 week- typically endorses use as 4 glasses of wine a days Utilities Answer Date Recorded In the past 12 months has [employer], [employer], oil, or water [employer] threatened to shut off services in your [...] any time in the past 12 m [facility], were you homeless or living in [...] as of this encounter Progress Notes * Dean Robles - 10/14/2024 9:49 AM EDT Dean berman [facility] [address] Case opened TAYLOR Almeida ph [phone] Fx [phone] Liver requested urgent review for slk Approved by [facility] letter to files documented in this encounter Plan of Treatment Upcoming Encounters Date Type Department Care Team (Late st Contact Info) Description 12/05/2024 8:01 AM EDT Hospital Encounter [facility] ENDOSCOPY [address] [place] [address] Chris Orosco MD [address] [place] [phone] 12/05/2024 8:01 AM EDT - 12/05/2024 8:31 AM EDT Surgery [facility] ENDOSCOPY [address] [place] [address] Chris Orosco MD [address] [place] [phone] EGD Scheduled Procedures Name Priority Associated Diagnoses [...] documented as of this encounter Care Teams Electrical Electronics Technician Relationship Specialty Start Date End Date Enedina Mcguire NP [address] [place] [address] PCP - General Internal Medicine 10/05/24 documented as of this encounter
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
--- OUTSIDE RECORDS SUMMARY | 2024-10-17 11:54 | XMS_ITS | Encounter Summary ---
Author Organization [facility] Address [address] [place] [address] Care Team Providers Care Contract Implementation Analyst Name Role Phone Unavailable Primary Care [...] release of HIV test results or diagnoses. [id number] Health Encounter Details Date Type Department Care Team (Late st Contact Info) Description 10/01/2024 Telephone [facility] Liver Transplant at [address] [address] Armand Salinas, RN Social History Tobacco Use Types Packs/Day Years Used Date Smoking Tobacco: Former Cigarettes Smokeless Tobacco: Current Alcohol Use Standard Drinks/Week Comments Yes 0 (1 standard drink = 0.6 oz pure alcohol) History of alcohol abuse, reports no use in 3 week- typically endorses use as 4 glasses of wine a days Utilities Answer Date Recorded In the past 12 months has [employer], gas, oil, or water company threatened to [...] living in a mcc (including now)? No 09/05/2024 Yearly Questionnaire Answer [...] as of this encounter Progress Notes * Armand Salinas RN - 10/01/2024 9:45 AM EDT Call to patient to schedule new patient appointments in liver transplant clinic. Scheduled on 10-13-24 at 1:30 pm. Verified e-mail address and sent the new patient welcome e-mail with attached education. Encouraged patient and their support persons to view prior to their appointment. documented in this encounter Plan of Treatment Upcoming Encounters Date Type Department Care Team (Late st Contact Info) Description 12/05/2024 8:01 AM EDT Hospital Encounter [facility] ENDOSCOPY [address] [place] [address] Chris Orosco MD [address] [place] [phone] 12/05/2024 8:01 AM EDT - 12/05/2024 8:31 AM EDT Surgery [facility] ENDOSCOPY [address] [place] [address] Chris Orosco MD [address] [place] [phone] EGD Scheduled Procedures Name Priority Associated Diagnoses Date/Ti me EGD Cirrhosis of liver with ascites, unspecified hepatic cirrhosis type ([facility]) 12/05/2024 8:01 AM EDT documented as of this encounter Visit Diagnoses Not on filedocumented in this encounter Additional Health Concerns Infection Onset Date Last Indicated Resolved Time C. difficile 09/09/2024 09/09/2024 Assessment Noted Time PHQ-9 Depression Total Score: 17 025 11:00 AM EDT documented as of this encounter
--- OUTSIDE RECORDS SUMMARY | 2024-10-17 11:54 | XMS_ITS | Encounter Summary ---
Author Organization [facility] Address [facility] [place] [address] Care Team Providers Care Hot Roll Laminator Name Role Phone Unavailable Primary Care Provider [...] release of HIV test results or diagnoses. [id number] Reason for Visit * Reason Comments Appointment Encounter Details Date Type Department Care Team (Late st Contact Info) Description 09/25/2024 Telephone [facility] Interventional Radiology [address] [place] [phone] De Leon, Shamone Appointment Social History Tobacco Use Types Packs/Day Years Used Date Smoking Tobacco: Former Cigarettes Smokeless Tobacco: Current Alcohol Use Standard Drinks/Week Comments Yes 0 (1 standard drink = 0.6 oz pure alcohol) History of alcohol abuse, reports no use in 3 week- typically endorses use as 4 glasses of wine a days Utilities Answer Date Recorded In the past 12 months has [employer], gas, oil, or water [employer] threatened to shut off services in your [...] on file documented as of this encounter Miscellaneous Notes * Telephone Encounter - Shamone De Leon - 09/25/2024 10:40 AM EDT In an attempt to schedule Julien Anderson for an IR Procedure, lvm to return call to [phone] opt 1 to schedule. documented in this encounter Plan of Treatment Upcoming Encounters Date Type Department Care Team (Late st Contact Info) Description 12/05/2024 8:01 AM EDT Hospital Encounter [facility] ENDOSCOPY [address] [place] [address] Chris Orosco MD [address] [place] [phone] 12/05/2024 8:01 AM EDT - 12/05/2024 8:31 AM EDT Surgery [facility] ENDOSCOPY [address] [place] [address] Chris Orosco MD [address] [place] [phone] EGD Scheduled Procedures Name Priority Associated Diagnoses Date/Ti me EGD Cirrhosis of liver with ascites, unspecified hepatic cirrhosis type ([facility]-HCC) 12/05/2024 8:01 AM EDT documented as of this encounter Visit Diagnoses Not on filedocumented in this encounter Additional Health Concerns Infection Onset Date Last Indicated Resolved Time C. difficile 09/09/2024 09/09/2024 documented as of this encounter
--- OUTSIDE RECORDS SUMMARY | 2024-10-17 11:54 | XMS_ITS | Encounter Summary ---
Author Organization [facility] Address [address] [place] [address] Care Team Providers Care Rn Occupational Health Name Role Phone Unavailable Primary Care Provider [...] release of HIV test results or diagnoses. [id number] Health Encounter Details Date Type Department Care Team (Late st Contact Info) Description 09/25/2024 Orders Only [facility] Liver Transplant at [address] [phone] Mary Butler, RN Pre-transplant evaluation for chronic [...] Recorded In the past 12 months has [employer], gas, oil, or water [employer] threatened to shut off services in your [...] Hospital Encounter [facility] ENDOSCOPY [address] [place] [address] Chris Orosco MD [address] [place] [phone] 12/05/2024 8:01 AM EDT - 12/05/2024 8:31 AM EDT Surgery [facility] ENDOSCOPY [address] [place] [phone] Chris Orosco MD [address] [place] [phone] EGD Scheduled Procedures Name Priority Associated Diagnoses Date/Ti me EGD Cirrhosis of liver with ascites, unspecified hepatic cirrhosis type ([facility]) 12/05/2024 8:01 AM EDT documented as of this encounter Results * Urine Drug Comprehensive Panel, Confirmation (09/25/2024 11:55 AM EDT) BARBITURATES NOT PRESENT 09/29/2024 12:39 PM EDT [facility] BENZODIAZEPINES NOT PRESENT 09/30/19 12:39 PM EDT [facility] CANNABINOIDS NOT PRESENT 09/29/2024 12:39 PM EDT [facility] ELECTRICIAN MARINE STIMULANTS NOT PRESENT 12:39 PM EDT [facility] OPIOID ANALGESICS PRESENT 025 12:39 PM EDT [facility] Tramadol >1000 ng/mL 09/29/2024 12:39 PM EDT [facility] OPIOID ANTAGONISTS NOT PRESENT 09/29 12:39 PM EDT [facility] SEDATIVES/MUSCLE RELAXANTS NOT PRESENT 09/29/2024 12:39 PM EDT [facility] TRICYCLIC ANTIDEPRESSANTS NOT PRESENT 09/29/2024 12:39 PM EDT HEALTH LAB Creatinine, Ur 122.10 mg/dL 09/26/2024 11:30 AM EDT [facility] Comment:Reference range not established for this test. pH 5.8 4.7 - 7.8 09/26/2024 11:30 AM EDT [facility] Specific Marshall 1.010 1.003 - 1.035 09/26/2024 11:30 AM EDT [facility] Urine 09/25/2024 11:5 5 AM EDT 09/25/2024 12:19 PM EDT Narrative [facility] - 09/29/2024 12:39 PM EDT This test has been developed and its performance characteristics determined by [facility] which is certified [...] Chinedu Sidhu MD URINE ORDERABLES Final Result Performing Organization Address City/State/[facility] Co de Phone Number [facility] [address] * Phosphatidylethanol Confirmation, B (09/25/2024 11:55 AM EDT) PETH 16:0/18.1 (POPETH) <10 Cutoff: 10 ng/mL 09/29/2024 12:24 PM EDT [facility] Comment: Phosphatidylethanol (PEth) homologues result interpretation PEth [...] are not well established PEth Interpretation Negative. 05/19 /2025 12:24 PM EDT [facility] Comment: ADDITIONAL INFORMATION This report is intended for use in clinical monitoring and management of patients. It is not intended for use in employment-related testing. This test was developed and its performance characteristics determined by [facility] in a manner consistent with CLIA requirements. This test has not been cleared or approved by the U.S. Food and Drug Administration. Test Performed by: [facility] [address] [place] [address] Multiple Resaw Operator: Kathy Ortiz Ph.D.; CLIA# [id number] Whole Blood 09/25/2024 11:5 5 AM EDT 09/29/2024 12:24 PM EDT Chinedu Sidhu MD LAB BLOOD ORDERABLES Final Re sult [facility] [address] [facility] documented in this encounter Visit Diagnoses Diagnosis Pre-transplant evaluation for chronic liver disease- Primary Alcoholic cirrhosis of liver without ascites [...]
--- OUTSIDE RECORDS SUMMARY | 2024-10-17 11:54 | XMS_ITS | Encounter Summary ---
Author Organization [facility] Address [address] [place] [address] Care Team Providers Care Client Program Manager Name Role Phone Unavailable Primary Care Provider [...] release of HIV test results or diagnoses. [id number] Health Encounter Details Date Type Department Care Team (Late st Contact Info) Description 09/30/2024 Social Work [facility] Liver Transplant at [address] [address] Kaylin Willard MSW Social History Tobacco Use [...] Recorded In the past 12 months has [employer], gas, oil, or water company threatened to [...] living in a usp (including now)? No 09/05/2024 Yearly Questionnaire Answer [...] as of this encounter Progress Notes * NUBIA Barros - 09/30/2024 3:48 PM EDT Social Work Note- Outpatient Liver Transplant Patient has been referred to [facility] for liver transplant evaluation. Patient was evaluated by transplant foster care social worker on 09/25/2024 and it was determined that patient will need to complete 12 weeks of CD treatment. Patient is engaged in CD treatment with: [facility] Mary Marie [phone] Patient has been attending an IOP program and attends group 3-4x a week virtually and meets with anindividual counselor 2x a week. Patient has completed ~8 weeks of CD treatment thus far. SW received below email from his counselor: He was admitted into treatment with us on 07/31/2024 and will be completing treatment on 10/23/24. To my knowledge, he has maintained sobriety throughout treatment. He has reported to me that he utilizes the coping skills of attending online Alcoholics Anonymous meetings, diaphragmatic breathing, spending time with his , and reaching out to his support group. We do not have a relapse prevention plan in place for him yet, but have started working on it and we are able to provide dual-diagnosis treatment for him. Thank you NUBIA Barros, ASSOCIATE PROFESSOR OF SOCIOLOGY documented in this encounter Plan of Treatment Upcoming Encounters Date Type Department Care Team (Late st Contact Info) Description 12/05/2024 8:01 AM EDT Hospital Encounter [facility] ENDOSCOPY [address] [place] [phone] Chris Orosco MD [address] [place] [phone] 12/05/2024 8:01 AM EDT - 12/05/2024 8:31 AM EDT Surgery [facility] ENDOSCOPY [address] [place] [phone] Chris Orosco MD [address] [place] [phone] EGD Scheduled Procedures Name Priority Associated Diagnoses Date/Ti me EGD Cirrhosis of liver with ascites, unspecified hepatic cirrhosis type ([facility]) 12/05/2024 8:01 AM EDT documented as of this encounter Visit Diagnoses Not on filedocumented in this encounter Additional Health Concerns Infection Onset Date Last Indicated Resolved Time C. difficile 09/09/2024 09/09/2024 Assessment Noted Time PHQ-9 Depression Total Score: 17 025 11:00 AM EDT documented as of this encounter
--- OUTSIDE RECORDS SUMMARY | 2024-10-17 11:54 | XMS_ITS | Encounter Summary ---
Author Organization [facility] Address [address] [place] [address] Care Team Providers Care Elevator Technician Name Role Phone Enedina Mcguire NP Primary Care Provider [phone] Source Comments This information has been disclosed [...] release of HIV test results or diagnoses. [id number] Encounter Details Date Type Department Care Team (Late st Contact Info) Description 10/07/2024 Chart Note [facility] Kidney Transplant at [address] [place] [phone] Chey Nicole MA This MA received new referral for PT. Will FU once financially cleared. Social History Tobacco Use Types Packs/Day Years Used Date Smoking Tobacco: Former Cigarettes Smokeless Tobacco: Current Alcohol Use Standard Drinks/Week Comments Yes 0 (1 standard drink = 0.6 oz pure alcohol) History of alcohol abuse, reports no use in 3 week- typically endorses use as 4 glasses of wine a days Utilities Answer Date Recorded In the past 12 months has e [employer], gas, oil, or water [employer] threatened to shut off services in your [...] money to buy more. Never true 10/07/19 Within the past 12 months, t he [...] time in the past [address] [facility], were you homeless or living [...] as of this encounter Progress Notes * Chey Nicole MA - 10/07/2024 1:03 PM EDT This MA received new referral for PT. Will FU once financially cleared. An NextUser fax was sent to [facility] and or referring office to notify of referral acceptance. documented in this encounter Plan of Treatment Upcoming Encounters Date Type Department Care Team (Late st Contact Info) Description 12/05/2024 8:01 AM EDT Hospital Encounter [facility] ENDOSCOPY [address] [place] [address] Chris Orosco MD [address] [place] [phone] 12/05/2024 8:01 AM EDT - 12/05/2024 8:31 AM EDT Surgery [facility] ENDOSCOPY [address] [place] [address] Chris Orosco MD [address] [place] [phone] EGD Scheduled Procedures Name Priority Associated Diagnoses Date/Ti me EGD Cirrhosis of liver with ascites, unspecified hepatic cirrhosis type ([facility]) 12/05/2024 8:01 AM EDT documented as of this encounter Visit Diagnoses Not on filedocumented in this encounter Additional Health Concerns Infection Onset Date Last Indicated Resolved Time C. difficile 09/09/2024 09/09/2024 Rule Out C. difficile 10/05/2024 10/05/20242024 10:04 AM EDT Assessment Noted Time PHQ-9 Depression Total Score: 17 09/29/2 025 11:00 AM EDT documented as of this encounter Care Teams Elevator Technician Relationship Specialty Start Date End Date Enedina Mcguire NP [address] [place] [address] PCP - General Internal Medicine 10/05/24 documented as of this encounter
--- OUTSIDE RECORDS SUMMARY | 2024-10-17 11:54 | XMS_ITS | Encounter Summary ---
Author Organization [facility] Address [facility] [place] [place] [address] Care Team Providers Care Snuff Container Inspector Name Role Phone Enedina Mcguire NP Primary Care Provider [phone] Source Comments This information has been disclosed [...] release of HIV test results or diagnoses. [id number] Reason for Visit * Reason Comments After Hours Call Encounter Details Date Type Department Care Team ([facility] Contact Info) Description 10/05/2024 Telephone [facility] PATIENT SERVICES [address] [place] [address] Unknown, Attending Provider After Hours Call Social History Tobacco Use Types Packs/Day Years Used Date Smoking Tobacco: Former Cigarettes Smokeless Tobacco: Current Alcohol Use Standard Drinks/Week Comments Yes 0 (1 standard drink = 0.6 oz pure alcohol) History of alcohol abuse, reports no use in 3 week- typically endorses use as 4 glasses of wine a days Utilities Answer Date Recorded In the past 12 months has [employer], gas, oil, or water [employer] threatened to shut off services in your [...] any time in the past 12 m [facility], were you homeless or living in [...] encounter Miscellaneous Notes * Telephone Encounter - Karly Retana MD - 10/05/2024 10:55 AM EDT Brief After-Hours GI Call Pt's called in because patient is confused and having difficulty expressing himself. He has been taking lactulose one time per day with 4-5 BM per day. Advised her to have patient present to ER TAMIR given possibility of stroke, severe HE, sepsis. She verbalized understanding and will have patient present to local ER w/ plans to transfer to [facility] if higher level of care required. Will notify outpatient liver provider. [facility] PGY6 * Telephone Encounter - Madina Elliott - 10/05/2024 10:[address] RETANA SHE WILL CALL PT DIRECTLY. COMPLETE * Telephone Encounter - Madina Elliott - 10/05/2024 10:19 AM EDT Specialty: [facility] Patient Name: Julien Anderson Patient Date of : 1985 Relationship of Caller to Patient and Callback: [phone] Patient of: DR. LINARES Nature of Call: STATES PT IS SHOWING SIGNS OF CONFUSION. PLEASE ADVISE. Plumber Helper Provider Contacted: DR. RETANA Time and Method of Contact: PAGE 10:23AM Advise Caller: If provider does not call back within 30 minutes, please call us back. ROUTE TELEPHONE NOTE - Follow Qgenda and/or Route Directly to Provider. COPY this note into AFTERHOURS Teams chat. documented in this encounter Plan of Treatment Upcoming Encounters Date Type Department Care Team (Late st Contact Info) Description 12/05/2024 8:01 AM EDT Hospital Encounter [facility] ENDOSCOPY [address] [place] [address] Chris Orosco MD [address] [place] [phone] 12/05/2024 8:01 AM EDT - 12/05/2024 8:31 AM EDT Surgery [facility] ENDOSCOPY [address] [place] [phone] Chris Orosco MD [address] [place] [phone] EGD Scheduled Procedures Name Priority Associated Diagnoses Date/Ti me EGD Cirrhosis of liver with ascites, unspecified hepatic cirrhosis type ([facility]) 12/05/2024 8:01 AM EDT documented as of this encounter Visit Diagnoses Not on filedocumented in this encounter Additional Health Concerns Infection Onset Date Last Indicated Resolved Time C. difficile 09/09/2024 09/09/2024 Assessment Noted Time PHQ-9 Depression Total Score: 17 025 11:00 AM EDT documented as of this encounter Care Teams Snuff Container Inspector Relationship Specialty Start Date End Date Enedina Mcguire NP [address] [place] [address] PCP - General Internal Medicine 10/05/24 documented as of this encounter
--- OUTSIDE RECORDS SUMMARY | 2024-10-17 11:54 | XMS_ITS | Encounter Summary ---
Author Organization [facility] Address [address] [place] [address] Care Team Providers Care Sleeve Setter Safety Stitch Name Role Phone Unavailable Primary Care Provider [...] release of HIV test results or diagnoses. [id number] Health Encounter Details Date Type Department Care Team (Late st Contact Info) Description 09/24/2024 Orders Only [facility] Gastroenterology at [facility] [address] [place] [phone] Gerri Peterson MD [address] [place] [address] Cirrhosis of liver with ascites, unspecified hepatic cirrhosis type (CMS-HCC) (Primary Dx) Social History Tobacco Use Types Packs/Day Years Used Date Smoking Tobacco: Former Cigarettes Smokeless Tobacco: Current Alcohol Use Standard Drinks/Week Comments Yes 0 (1 standard drink = 0.6 oz pure alcohol) History of alcohol abuse, reports no use in 3 week- typically endorses use as 4 glasses of wine a days Utilities Answer Date Recorded In the past 12 months has [employer], gas, oil, or water company threatened [...] any time in the past 12 m [facility], were you homeless or living [...] Description 12/05/2024 8:01 AM EDT Hospital Encounter [facility] ENDOSCOPY [address] [place] [address] Chris Orosco MD [address] [place] [phone] 12/05/2024 8:01 AM EDT - 12/05/2024 8:31 AM EDT Surgery [facility] ENDOSCOPY [address] [place] [address] Chris Orosco MD [address] [place] [phone] EGD Scheduled Orders Name Type Priority Associated Diagnoses Orde r Schedule Protime-INR Lab Routine Cirrhosis of liver with ascites, unspecified hepatic cirrhosis type (CMS-HCC) every 2 weeks for 12 Occurrences starting 09/24/2024 until 04/08/2025 Scheduled Procedures Name Priority Associated Diagnoses Date/Ti me EGD Cirrhosis of liver with ascites, unspecified hepatic cirrhosis type (CMS-HCC) 12/05/2024 8:01 AM EDT documented as of this encounter Visit Diagnoses Diagnosis Cirrhosis of liver with ascites, unspecified hepatic cirrhosis type (CMS-HCC)- Primary Cirrhosis of liver with ascites, unspecified hepatic cirrhosis type (CMS-HCC) documented in this encounter Additional Health Concerns Infection Onset Date Last Indicated Resolved Time C. difficile 09/09/2024 09/09/2024 documented as of this encounter
--- OUTSIDE RECORDS SUMMARY | 2024-10-17 11:54 | XMS_ITS | Encounter Summary ---
Author Organization [facility] Address [address] [place] [address] Care Team Providers Care Hot Die Picker Name Role Phone Unavailable Primary Care Provider [...] release of HIV test results or diagnoses. [id number] Health Encounter Details Date Type Department Care Team (Late st Contact Info) Description 09/26/2024 Abstract [facility] G[facility]enterology at [facility] [address] [place] [phone] Gerri Peterson MD [address] [place] [address] Social History Tobacco Use Types Packs/Day Years Used Date Smoking Tobacco: Former Cigarettes Smokeless Tobacco: Current Alcohol Use Standard Drinks/Week Comments Yes 0 (1 standard drink = 0.6 oz pure alcohol) History of alcohol abuse, reports no use in 3 week- typically endorses use as 4 glasses of wine a days Utilities Answer Date Recorded In the past 12 months has [facility] [employer], gas, oil, or water [employer] threatened to shut off services in your [...] any time in the past 12 m [facility], were you homeless or living in a [...] 12/05/2024 8:01 AM EDT Hospital Encounter [facility] ENDOSCOPY [address] [place] [phone] Chris Orosco MD [address] [place] [phone] 12/05/2024 8:01 AM EDT - 12/05/2024 8:31 AM EDT Surgery [facility] ENDOSCOPY [address] [place] [phone] Chris Orosco MD [address] [place] [phone] EGD Scheduled Procedures Name Priority Associated Diagnoses Date/Ti me EGD Cirrhosis of liver with ascites, unspecified hepatic cirrhosis type ([facility]) 12/05/2024 8:01 AM EDT documented as of this encounter Visit Diagnoses Not on filedocumented in this encounter Additional Health Concerns Infection Onset Date Last Indicated Resolved Time C. difficile 09/09/2024 09/09/2024 Assessment Noted Time PHQ-9 Depression Total Score: 16 05/16/2 025 11:00 AM EDT documented as of this encounter
--- OUTSIDE RECORDS SUMMARY | 2024-10-17 11:55 | XMS_ITS | Encounter Summary ---
Author Organization [facility] Address [address] [place] [address] Care Team Providers Care Melter Supervisor Electric Arc Furnace Name Role Phone Enedina Mcguire NP Primary Care Provider [phone] Source Comments This information has been disclosed [...] release of HIV test results or diagnoses. [id number] Health Encounter Details Date Type Department Care Team (Late st Contact Info) Description 10/07/2024 Chart Note [facility] Liver Transplant at [address] [place] [phone] Alexandro Sams, RN Spoke with Julien Anderson today for evaluation for a combined liver and Social History Tobacco Use Types Packs/Day Years Used Date Smoking Tobacco: Former Cigarettes Smokeless Tobacco: Current Alcohol Use Standard Drinks/Week Comments Yes 0 (1 standard drink = 0.6 oz pure alcohol) History of alcohol abuse, reports no use in 3 week- typically endorses use as 4 glasses of wine a days Utilities Answer Date Recorded In the past 12 months has [employer], gas, oil, or water [facility] threatened to shut off services in your [...] living in a longterm (including now)? No 10/06/2024 Yearly Questionnaire Answer [...] as of this encounter Progress Notes * Alexandro Sams RN - 10/07/2024 3:02 PM EDTAddended by: ALEXANDRO SAMS on: 10/08/2024 03:49 PM Modules accepted: Orders * Alexandro Sams RN - 10/07/2024 3:02 PM EDT Spoke with Julien Anderson today for evaluation for a combined liver and kidney transplant. Hepatitis B Vaccine: immune DMII daignosis age: n/a Kidney Biopsy:n/a Consent obtained X Provided 1:1 dual organ kidney transplant education. Discussed specific criteria for qualificationsfor kidney transplant with liver. Julien Anderson was awake, alert, and oriented to time, person, and place during education. Reviewed and discussed informed consent and SRTR outcomes data web site. (www.srtr.org). We discussed in detail the evaluation process for kidney transplant including all the testing, allocation of organs, Hep B and C organs, possible surgical and medical complications of kidney transplantation, need for life long immune suppression along with the side effects of these medications. Transplant evaluation consents signed. Patient notified if they are not a candidate for liver transplant than they are not a candidate for liver. Copies provided. All questions answered. documented in this encounter Plan of Treatment Upcoming Encounters Date Type Department Care Team (Late st Contact Info) Description 12/05/2024 8:01 AM EDT Hospital Encounter [facility] ENDOSCOPY [address] [place] [address] Chris Orosco MD [address] [place] [phone] 12/05/2024 8:01 AM EDT - 12/05/2024 8:31 AM EDT Surgery [facility] ENDOSCOPY [address] [place] [address] Chris Orosco MD [address] [place] [phone] EGD Scheduled Procedures Name Priority Associated Diagnoses Date/Ti me EGD Cirrhosis of liver with ascites, unspecified hepatic cirrhosis type ([facility]-H[facility]) 12/05/2024 8:01 AM EDT documented as of this encounter Visit Diagnoses Not on filedocumented in this encounter Additional Health Concerns Infection Onset Date Last Indicated Resolved Time C. difficile 09/09/2024 09/09/2024 Rule Out C. difficile 10/05/2024 10/05/20242024 10:04 AM EDT Assessment Noted Time PHQ-9 Depression Total Score: 17 025 11:00 AM EDT documented as of this encounter Care Teams Melter Supervisor Electric Arc Furnace Relationship Specialty Start Date End Date Enedina Mcguire NP [address] [place] [address] PCP - General Internal Medicine 10/05/24 documented as of this encounter
--- OUTSIDE RECORDS SUMMARY | 2024-10-17 11:55 | XMS_ITS | Encounter Summary ---
Author Organization [facility] Address [address] [place] [address] Care Team Providers Care Blanket Cutting Machine Operator Name Role Phone Enedina Mcguire NP Primary Care Provider [phone] Source Comments This information has been disclosed [...] release of HIV test results or diagnoses. [id number] Health Encounter Details Date Type Department Care Team (Late st Contact Info) Description 10/07/2024 Chart Note [facility] Kidney Transplant at [address] [address] Anny Cote RN Simultaneous Liver-Kidney Transplant Referral Social History Tobacco Use Types Packs/Day Years Used Date Smoking Tobacco: Former Cigarettes Smokeless Tobacco: Current Alcohol Use Standard Drinks/Week Comments Yes 0 (1 standard drink = 0.6 oz pure alcohol) History of alcohol abuse, reports no use in 3 week- typically endorses use as 4 glasses of wine a days Utilities Answer Date Recorded In the past 12 months has [employer], gas, oil, or water [employer] threatened to shut off services in your home? No 10/06/2024 AUDIT-C Answer Date Recorded Q1: How often do you have a drink containing alcohol? Never 09/05/2024 Q2: How many drinks containi ng alcohol do you have on a typical day when you are drinking? Patient does not drink 5 Q3: How often do you have si [...] time in the past 12 m [facility], were you homeless or living [...] as of this encounter Progress Notes * Anny Cote RN - 10/07/2024 12:10 PM EDT Simultaneous Liver-Kidney Transplant Referral Urgency: [] Inpatient [x] Outpatient Kidney Referral: [x] Financial Clearance is pending sent to financial business analyst [x] HLA testing to be ordered once auth received Severity of CKD: Per review of records, patient's dialysis/GFR status is as follows: CKD: with GFR less than or equal to 60ml/min for greater than 90 consecutive days (No). GFR has been less than 60 since 07/23/2024. Per records GFR was 65.9 on 07/22/2024. Will need to 10/22/24 or after to meet greater than the 90 day requirement [x] Not on dialysis [x] Current GFR: 22 10/07/2024 [] GFRs have been < 60ml/min for > 90 days [x] Current GFR < 30ml/min [] 24 Hr Urine Studies: [x] Underlying CKD (history): History of multiple NADIYA episodes, kidney stones, History of renal mass s/p cryo ablation 10/2022 Sensitizing Info: Previous transplants: N/A ABO: O Updated Dialysis Center: Primary Dialysis Unit: (Not currently on dialysis) Outside infrastructure design engineer: Dr. Curran, Yovanny Nicholson MD Routed to kidney referral intake team. documented in this encounter Plan of Treatment Upcoming Encounters Date Type Department Care Team (Late st Contact Info) Description 12/05/2024 8:01 AM EDT Hospital Encounter [facility] ENDOSCOPY [address] [place] [address] Chris Orosco MD [address] [place] [phone] 12/05/2024 8:01 AM EDT - 12/05/2024 8:31 AM EDT Surgery [facility] ENDOSCOPY [address] [place] [address] Chris Orosco MD [address] [place] [phone] EGD Scheduled Procedures Name Priority Associated Diagnoses [...] documented as of this encounter Care Teams Blanket Cutting Machine Operator Relationship Specialty Start Date End Date Enedina Mcguire NP [address] [place] [address] PCP - General Internal Medicine 10/05/24 documented as of this encounter
--- OUTSIDE RECORDS SUMMARY | 2024-10-17 11:55 | XMS_ITS | Encounter Summary ---
Author Organization [facility] Address [address] [place] [address] Care Team Providers Care Pelt Grader Name Role Phone Enedina Mcguire NP Primary Care Provider [phone] Source Comments This information has been disclosed [...] release of HIV test results or diagnoses. [id number] Health Encounter Details Date Type Department Care Team (Late st Contact Info) Description 10/09/2024 Chart Note [facility] Kidney Transplant at [address] [place] [phone] Dean Robles [facility] [phone] call from Elle Channing [facility] fx [phone] Social History Tobacco Use Types Packs/Day Years Used Date Smoking Tobacco: Former Cigarettes Smokeless Tobacco: Current Alcohol Use Standard Drinks/Week Comments Yes 0 (1 standard drink = 0.6 oz pure alcohol) History of alcohol abuse, reports no use in 3 week- typically endorses use as 4 glasses of wine a days Utilities Answer Date Recorded In the past 12 months has e [employer], gas, oil, or water company threatened to [...] any time in the past 12 m [facility], were you homeless or living in [...] encounter Progress Notes * Dean Robles - 10/09/2024 11:57 AM EDT Dean berman [facility] [phone] call from Elle the R fx [phone] Set her all clinical Rquesting a urgent review for liver txp UMR/optum case opened 10/05/24 Pends response documented in this encounter Plan of Treatment Upcoming Encounters Date Type Department Care Team (Late st Contact Info) Description 12/05/2024 8:01 AM EDT Hospital Encounter [facility] ENDOSCOPY [address] [place] [phone] Chris Orosco MD [address] [place] [phone] 12/05/2024 8:01 AM EDT - 12/05/2024 8:31 AM EDT Surgery [facility] ENDOSCOPY [address] [place] [phone] Chris Orosco MD [address] [place] [phone] EGD Scheduled Procedures Name Priority Associated Diagnoses Date/Ti me EGD Cirrhosis of liver with ascites, unspecified hepatic cirrhosis type ([facility]) 12/05/2024 8:01 AM EDT documented as of this encounter Visit Diagnoses Not on filedocumented in this encounter Additional Health Concerns Infection Onset Date Last Indicated Resolved Time C. difficile 09/09/2024 09/09/2024 Assessment Noted Time PHQ-9 Depression Total Score: 17 025 11:00 AM EDT documented as of this encounter Care Teams Pelt Grader Relationship Specialty Start Date End Date Enedina Mcguire NP [address] [place] [address] PCP - General Internal Medicine 5/25/25 documented as of this encounter
--- OUTSIDE RECORDS SUMMARY | 2024-10-17 11:55 | XMS_ITS | Encounter Summary ---
Author Organization [facility] Address [address] [place] [address] Care Team Providers Care Social Services Director Name Role Phone Enedina Mcguire NP Primary Care Provider [phone] Source Comments This information has been disclosed [...] release of HIV test results or diagnoses. [id number] Health Encounter Details Date Type Department Care Team (Late st Contact Info) Description 10/09/2024 Chart Note [facility] Kidney Transplant at [address] [place] [phone] Dean Robles [facility] [address] Social History Tobacco Use Types Packs/Day Years Used Date Smoking Tobacco: Former Cigarettes Smokeless Tobacco: Current Alcohol Use Standard Drinks/Week Comments Yes 0 (1 standard drink = 0.6 oz pure alcohol) History of alcohol abuse, reports no use in 3 week- typically endorses use as 4 glasses of wine a days Utilities Answer Date Recorded In the past 12 months has [employer], [employer], oil, or water [employer] threatened to shut off services in your [...] Progress Notes * Dean Robles - 10/09/2024 10:37 AM EDT Dean berman [facility] [address] Called Cammie Chaves [phone] Advised of brandon martínez she was aware Assigning a cm to call me Requested all clinical Advised this is now a SLK Pending cm call back documented in this encounter Plan of Treatment Upcoming Encounters Date Type Department Care Team (Late st Contact Info) Description 12/05/2024 8:01 AM EDT Hospital Encounter [facility] ENDOSCOPY [address] [place] [address] Chris Orosco MD [address] [place] [phone] 12/05/2024 8:01 AM EDT - 12/05/2024 8:31 AM EDT Surgery [facility] ENDOSCOPY [address] [place] [address] Chris Orosco MD [address] [place] [phone] EGD Scheduled Procedures Name Priority Associated Diagnoses [...] documented as of this encounter Care Teams Social Services Director Relationship Specialty Start Date End Date Enedina Mcguire NP [address] [place] [address] PCP - General Internal Medicine 10/05/24 documented as of this encounter
--- OUTSIDE RECORDS SUMMARY | 2024-10-17 11:55 | XMS_ITS | Encounter Summary ---
Author Organization [facility] Address [address] [place] [address] Care Team Providers Care Supervisor Printing Shop Name Role Phone Enedina Mcguire NP Primary Care Provider [phone] Source Comments This information has been disclosed [...] release of HIV test results or diagnoses. [id number] Encounter Details Date Type Department Care Team (Latest Contact Info) Description 10/06/2024 Travel Social History Tobacco Use Types Packs/Day Years Used Date Smoking Tobacco: Former Cigarettes Smokeless Tobacco: Current Alcohol Use Standard Drinks/Week Comments Yes 0 (1 standard drink = 0.6 oz pure alcohol) History of alcohol abuse, reports no use in 3 week- typically endorses use as 4 glasses of wine a days Utilities Answer Date Recorded In the past 12 months has [employer], oil, or water [employer] threatened to shut off services in your [...] any time in the past 12 m [place], were you homeless or living in a senior care (including now)? No 10/06/2024 Yearly Questionnaire Answer [...] Hospital Encounter [facility] ENDOSCOPY [address] [place] [address] Chris Orosco MD [address] [place] [phone] 12/05/2024 8:01 AM EDT - 12/05/2024 8:31 AM EDT Surgery [facility] ENDOSCOPY [address] [place] [phone] Chris Orosco MD [address] [place] [phone] EGD Scheduled Procedures Name Priority Associated Diagnoses Date/Ti me EGD Cirrhosis of liver with ascites, unspecified hepatic cirrhosis type ([facility]-HCC) 12/05/2024 8:01 AM EDT documented as of [...] as of this encounter Care Teams Supervisor Printing Shop Relationship Specialty Start Date End Date Enedina Mcguire NP [address] [place] [address] PCP - General Internal Medicine 10/05/24 documented as of this encounter
--- OUTSIDE RECORDS SUMMARY | 2024-10-17 11:55 | XMS_ITS | Encounter Summary ---
Author Organization [facility] Address [address] [place] [address] Care Team Providers Care Radiographic Technologist Name Role Phone Enedina Mcguire NP Primary Care Provider [phone] Source Comments This information has been disclosed [...] release of HIV test results or diagnoses. [id number] Encounter Details Date Type Department Care Team (Late st Contact Info) Description 10/07/[address] [facility] Kidney Transplant at [address] [place] [phone] Anny Cote RN Received notice of in house evaluation. Message to nephrology Social History Tobacco Use Types Packs/Day Years Used Date Smoking Tobacco: Former Cigarettes Smokeless Tobacco: Current Alcohol Use Standard Drinks/Week Comments Yes 0 (1 standard drink = 0.6 oz pure alcohol) History of alcohol abuse, reports no use in 3 week- typically endorses use as 4 glasses of wine a days Utilities Answer Date Recorded In the past 12 months has [employer], gas, oil, or water [employer] threatened to shut off services in your [...] Notes * Anny Cote RN - 10/07/2024 2:46 PM EDT Received notice of in house evaluation. Message to nephrology documented in this encounter Plan of Treatment Upcoming Encounters Date Type Department Care Team (Late st Contact Info) Description 12/05/2024 8:01 AM EDT Hospital Encounter [facility] ENDOSCOPY [address] [place] [address] Chris Orosco MD [address] [place] [phone] 12/05/2024 8:01 AM EDT - 12/05/2024 8:31 AM EDT Surgery [facility] ENDOSCOPY [address] [place] [address] Chris Orosco MD [address] [place] [phone] EGD Scheduled Procedures Name Priority Associated Diagnoses [...] documented as of this encounter Care Teams Radiographic Technologist Relationship Specialty Start Date End Date Enedina Mcguire NP [address] [place] [address] PCP - General Internal Medicine 10/05/24 documented as of this encounter
--- OUTSIDE RECORDS SUMMARY | 2024-10-17 11:55 | XMS_ITS | Encounter Summary ---
Author Organization [facility] Address [address] [place] [address] Care Team Providers Care Glue Mounter Operator Name Role Phone Enedina Mcguire NP Primary Care Provider [phone] Source Comments This information has been disclosed [...] release of HIV test results or diagnoses. [id number] Encounter Details Date Type Department Care Team (Late st Contact Info) Description 10/09/2024 Social Work [facility] Liver Transplant at [address] [address] Kaylin Willard MSW Social History Tobacco Use [...] Recorded In the past 12 months has [employer], gas, oil, or water [employer] threatened to shut off services in your home? No 10/06/2024 AUDIT-C Answer Date Recorded Q1: How often do you have a drink containing alcohol? Never 10/09/2024 Q2: How many drinks containi ng alcohol do you have on a typical day when you are drinking? Patient does not drink 05/29/202 5 Q3: How often do you have [...] encounter Progress Notes * NUBIA Barros - 10/09/2024 11:59 PM EDT Social Work Note- Outpatient Liver Transplant Patient has been referred to [facility] for liver transplant evaluation. Patient was evaluated by transplant social welfare clerk on 09/25/2024 and it was determined that patient will need to complete 12 weeks of CD treatment. Patient is engaged in CD treatment with: [facility] [phone] SW met with patient and spouse at bedside. Patient has completed 8 weeks of CD treatment and reports he has not been able to meet with his CD counselor since his hospitalization due to his fluctuating mental status. SW reviewed progress in CD treatment and discussed needing to complete remaining CDsessions post- transplant, he was agreeable and understanding. Transplant CD counselor to meet with patient as able during hospitalization pending mental status. NUBIA Barros, DENTAL FINANCIAL COORDINATOR documented in this encounter Plan of Treatment Upcoming Encounters Date Type Department Care Team (Late st Contact Info) Description 12/05/2024 8:01 AM EDT Hospital Encounter [facility] ENDOSCOPY [address] [place] [phone] Chris Orosco MD [address] [place] [phone] 12/05/2024 8:01 AM EDT - 12/05/2024 8:31 AM EDT Surgery [facility] ENDOSCOPY [address] [place] [phone] Chris Orosco MD [address] [place] [phone] EGD Scheduled Procedures Name Priority Associated Diagnoses Date/Ti or EGD Cirrhosis of liver with ascites, unspecified hepatic cirrhosis type ([facility]) 12/05/2024 8:01 AM EDT documented as of this encounter Visit Diagnoses Not on filedocumented in this encounter Additional Health Concerns Infection Onset Date Last Indicated Resolved Time C. difficile 09/09/2024 09/09/2024 Assessment Noted Time PHQ-9 Depression Total Score: 17 09/29/ 025 11:00 AM EDT documented as of this encounter Care Teams Glue Mounter Operator Relationship Specialty Start Date End Date Enedina Mcguire NP [address] [place] [address] PCP - General Internal Medicine 10/05/24 documented as of this encounter
--- OUTSIDE RECORDS SUMMARY | 2024-10-17 11:56 | XMS_ITS | Encounter Summary ---
Author Organization [facility] Address [facility] [place] [address] Care Team Providers Care Cloud Systems Architect Name Role Phone Unavailable Primary Care Provider [...] release of HIV test results or diagnoses. [id number] Health Encounter Details Date Type Department Care Team (Late st Contact Info) Description 09/02/2024 Orders Only PROVIDER GI [address] [place] [phone] Noé Giordano MD [address] [place], [place] [phone] Hypokalemia (Primary Dx) Social History Tobacco Use Types Packs/Day Years Used Date Smoking Tobacco: Former Cigarettes Smokeless Tobacco: Current Alcohol Use Standard Drinks/Week Comments Yes 0 (1 standard drink = 0.6 oz pure alcohol) History of alcohol abuse, reports no use in 3 week- typically endorses use as 4 glasses of wine a days Utilities Answer Date Recorded In the past 12 months has [employer], gas, oil, or water [facility] [facility] threatened to shut off services in your [...] in a fdc (including now)? No 08/12/2024 Yearly Questionnaire Answer [...] as of this encounter Progress Notes * Noé Giordano MD - 09/02/2024 9:01 PM EDT Brief Gastroenterology Note Called regarding critical lab result from today's clinic. Potassium is 2.7. It has been 3.0-3.5 recently in the context of his severe chronci illness. Called the patient and he is feeling ok other than abdominal pain but is getting a paracentesis soon. Denies chest pain, palpitations, SOB. After recent admission was discharged with potassium 20 mEq daily but states this was only given to him for 4 days. Will send a script over for potassium chloride 40 mg daily and route to primary GI/Hepatology provider. Noé Giordano MD Gastroenterology Fellow, PGY-6 documented in this encounter Plan of Treatment Upcoming Encounters Date Type Department Care Team (Late st Contact Info) Description 12/05/2024 8:01 AM EDT Hospital Encounter [facility] ENDOSCOPY [address] [place] [address] Chris Orosco MD [address] [place] [phone] 12/05/2024 8:01 AM EDT - 12/05/2024 8:31 AM EDT Surgery [facility] ENDOSCOPY [address] [place] [address] Chris Orosco MD [address] [place] [phone] EGD Scheduled Procedures Name Priority Associated Diagnoses Date/Ti hi EGD Cirrhosis of liver with ascites, unspecified hepatic cirrhosis type (CMS-HCC) 12/05/2024 8:01 AM EDT documented as of this encounter Visit Diagnoses Diagnosis Hypokalemia- Primary Hypopotassemia Cirrhosis of liver with ascites, unspecified hepatic cirrhosis type (CMS-HCC) documented in this encounter
--- OUTSIDE RECORDS SUMMARY | 2024-10-17 11:56 | XMS_ITS | Encounter Summary ---
Author Organization [facility] Address [address] [place] [address] Care Team Providers Care Aerospace Mechanic Name Role Phone Unavailable Primary Care Provider [...] release of HIV test results or diagnoses. [id number] Health Encounter Details Date Type Department Care Team (Latest Contact Info) Description 09/05/2024 Travel Social History Tobacco Use Types Packs/Day Years Used Date Smoking Tobacco: Former Cigarettes Smokeless Tobacco: Current Alcohol Use Standard Drinks/Week Comments Yes 0 (1 standard drink = 0.6 oz pure alcohol) History of alcohol abuse, reports no use in 3 week- typically endorses use as 4 glasses of wine a days Utilities Answer Date Recorded In the past 12 months has [employer], [employer], or water [employer] threatened to shut off services in [...] any time in the past [address] [facility], were you homeless or living in a fci (including now)? No 09/05/2024 Yearly Questionnaire Answer [...] of Assessment Author 0 09/05/2024 12:47 AM SANTOT Rohini Torres, RN * Question Answer Date of Assessment Author Q1: How often do you have a drink containing alcohol? Never 09/05/2024 12:47 AM SANTOT Minh Torres, R N Q2: How many drinks containing alcohol do you have on a typical day when you are drinking? Patient does not drink 09/05/2024 12:47 AM EDT Minh Torres, RN Q3: How often do you have six or more drinks on one occasion? Never 09/05/2024 12:47 AM EDT Minh Torres R N documented as of this encounter Plan of Treatment Upcoming Encounters Date Type Department Care Team (Late st Contact Info) Description 12/05/2024 8:01 AM EDT Hospital Encounter [facility] ENDOSCOPY [address] [place] [address] Chris Orosco MD [address] [place] [phone] 12/05/2024 8:01 AM EDT - 12/05/2024 8:31 AM EDT Surgery [facility] ENDOSCOPY [address] [place] [phone] Chris Orosco MD [address] [place] [phone] EGD Scheduled Procedures Name Priority Associated Diagnoses Date/Ti me EGD Cirrhosis of liver with ascites, unspecified hepatic cirrhosis type ([facility]-HCC) 12/05/2024 8:01 AM EDT documented as of this encounter Visit Diagnoses Not on filedocumented in this encounter
--- OUTSIDE RECORDS SUMMARY | 2024-10-17 11:56 | XMS_ITS | Encounter Summary ---
Author Organization [facility] Address [address] [place] [address] Care Team Providers Care Ditching Machine Engineer Name Role Phone Unavailable Primary Care [...] release of HIV test results or diagnoses. [id number] Health Encounter Details Date Type Department Care Team (Late st Contact Info) Description 08/20/2024 Telephone [facility] Liver Transplant at [address] [phone] Kaylin Willard MSW Social History Tobacco Use [...] Recorded In the past 12 months has [employer], gas, oil, or water company threatened to [...] in a senior living (including now)? No 08/12/2024 Sex and Gender Information Value Date Recorded Sex Assigned at Not on file Legal Sex Male 11:16 AM EDT Gender Identity Not on file Sexual Orientation Not on file documented as of this encounter Progress Notes * NUBIA Barros - 08/20/2024 11:54 AM EDT SW called patient to schedule evaluation for liver transplant. Patient answered and directed SW to call his spouse as she manages his appointments/scheduling. SW called patients spouse to schedule evaluation for liver transplant. Family chose 09/03 @ 9:30am as they will be in town on 09/02 for a follow-up GI appointment and can stay locally that night. documented in this encounter Plan of Treatment Upcoming Encounters Date Type Department Care Team (Late st Contact Info) Description 12/05/2024 8:01 AM EDT Hospital Encounter [facility] ENDOSCOPY [address] [place] [address] Chris Orosco MD [address] [place] [phone] 12/05/2024 8:01 AM EDT - 12/05/2024 8:31 AM EDT Surgery [facility] ENDOSCOPY [address] [place] [phone] Chris Orosco MD [address] [place] [phone] EGD Scheduled Procedures Name Priority Associated Diagnoses Date/Ti me EGD Cirrhosis of liver with ascites, unspecified hepatic cirrhosis type ([facility]-HCC) 12/05/2024 8:01 AM EDT documented as of this encounter Visit Diagnoses Not on filedocumented in this encounter
--- OUTSIDE RECORDS SUMMARY | 2024-10-17 11:56 | XMS_ITS | Encounter Summary ---
Author Organization [facility] Address [address] [place] [address] Care Team Providers Care Rides Attendant Name Role Phone Unavailable Primary Care Provider [...] release of HIV test results or diagnoses. [id number] Reason for Visit * Reason Comments Orders Order Request (New) Encounter Details Date Type Department Care Team (Late st Contact Info) Description 09/02/2024 Telephone [facility] Gastroenterology at [facility] [address] [place] [phone] Gerri Peterson MD [address] [place] [phone] Orders (Order Request (New) ) Social History Tobacco Use Types Packs/Day Years Used Date Smoking Tobacco: Former Cigarettes Smokeless Tobacco: Current Alcohol Use Standard Drinks/Week Comments Yes 0 (1 standard drink = 0.6 oz pure alcohol) History of alcohol abuse, reports no use in 3 week- typically endorses use as 4 glasses of wine a days Utilities Answer Date Recorded In the past 12 months has [employer], gas, oil, or water company threatened [...] in the past 12 m [facility], were you homeless or living in a correction (including now)? No 08/12/2024 Yearly Questionnaire Answer [...] encounter Miscellaneous Notes * Telephone Encounter - Ingrid Galvez RN - 09/02/2024 4:39 PM EDT RN printed orders for them to take to outside facility. When done at lab will come to office for them * Telephone Encounter - Chelle Michaels MA - 09/02/2024 4:23 PM EDT Pt;s spose called requesting new order: Name of Order: Abdominal doppler ultra sound Fax#: [phone] [facility] Leander sharon Please return call to confirm completed at [phone]. documented in this encounter Plan of Treatment Upcoming Encounters Date Type Department Care Team (Late st Contact Info) Description 12/05/2024 8:01 AM EDT Hospital Encounter [facility] ENDOSCOPY [address] [place] [phone] Chris Orosco MD [address] [place] [phone] 12/05/2024 8:01 AM EDT - 12/05/2024 8:31 AM EDT Surgery [facility] ENDOSCOPY [address] [place] [phone] Chris Orosco MD [address] [place] [phone] EGD Scheduled Procedures Name Priority Associated Diagnoses Date/Ti me EGD Cirrhosis of liver with ascites, unspecified hepatic cirrhosis type (CMS-HCC) 12/05/2024 8:01 AM EDT documented as of this encounter Visit Diagnoses Not on filedocumented in this encounter
--- OUTSIDE RECORDS SUMMARY | 2024-10-17 11:56 | XMS_ITS | Encounter Summary ---
Author Organization [facility] Address [facility] [place] [address] Care Team Providers Care Associate Civil Engineer Name Role Phone Unavailable Primary Care [...] release of HIV test results or diagnoses. [id number] Reason for Visit * Reason Comments After Hours Call Encounter Details Date Type Department Care Team (Late st Contact Info) Description 09/02/2024 Telephone [facility] [address] [place] [address] Unknown, Attending Provider After Hours [...] Recorded In the past 12 months has [employer], gas, oil, or water [employer] threatened to shut off services in your [...] time in the past 12 m [facility], were you homeless or living in a [...] drink containing alcohol? Never 09/05/2024 12:47 AM Minh Dixon R N Q2: How many drinks containing alcohol do you have on a typical day when you are drinking? Patient does not drink 09/05/2024 12:47 AM Minh Dixon, ЮЛИЯ Q3: How often do you have six or more drinks on one occasion? Never 09/05/2024 12:47 AM Minh Dixon R N * PCL-5: In the past month, how [...] is completely dangerous)? 0 09/29/2024 11:00 AM EDT Lizeth Warren Psy D Blaming yourself or someone else for the stressful experience or what happened after it? 0 09/29/2024 11:00 AM EDT Lizeth Warren Psy D Having strong negative feeli ngs such as fear, horror, anger, guilt, or shame? 0 09/29/2024 11:00 AM EDT Lizeth Warren Psy D Loss of interest in [...] Psy D documented as of this encounter Miscellaneous Notes * Telephone Encounter - Jesus Bella - 09/02/2024 8:50 PM EDT Specialty: [facility] Patient Name: Julien Anderson Patient Date of : 1985 Relationship of Caller to Patient and Callback: ALICIA ([facility]) [phone] Patient of: DR. 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 VINES Time and Method of Contact:MALIK @ 8:54PM Advise Caller: If provider does not call back within 30 minutes, please call us back. ROUTE TELEPHONE NOTE - Follow Qgenda and/or Route Directly to Provider. COPY this note into AFTERHOURS Teams chat. documented in this encounter Plan of Treatment Upcoming Encounters Date Type Department Care Team (Late st Contact Info) Description 12/05/2024 8:01 AM EDT Hospital Encounter [facility] ENDOSCOPY [address] [place] [phone] Chris Orosco MD [address] [place] [phone] 12/05/2024 8:01 AM EDT - 12/05/2024 8:31 AM EDT Surgery [facility] ENDOSCOPY [address] [place] [phone] Chris Orosco MD [address] [place] [phone] EGD Scheduled Procedures Name Priority Associated Diagnoses Date/Ti me EGD Cirrhosis of liver with ascites, unspecified hepatic cirrhosis type ([facility]) 12/05/2024 8:01 AM EDT documented as of this encounter Visit Diagnoses Not on filedocumented in this encounter Additional Health Concerns Infection Onset Date Last Indicated Resolved Time Rule Out C. difficile 09/08/2024 09/08/20242024 10:56 PM EDT Rule Out C. difficile 09/09/2024 09/09/20242024 1:20 PM EDT C. difficile 09/09/2024 09/09/2024 documented as of this encounter
--- OUTSIDE RECORDS SUMMARY | 2024-10-17 11:56 | XMS_ITS | Encounter Summary ---
Author Organization [facility] Address [address] [place] [address] Care Team Providers Care Tie Maker Name Role Phone Unavailable Primary Care Provider [...] release of HIV test results or diagnoses. [id number] Health Encounter Details Date Type Department Care Team (Late st Contact Info) Description 09/02/2024 Orders Only [facility] Liver Transplant at [address] [phone] Mary Butler, RN Pre-transplant evaluation for chronic [...] Recorded In the past 12 months has [employer], gas, oil, or water [employer] threatened to shut off services in [...] money to buy more. Never true 08/13/19 Within the past 12 months, t he [...] any time in the past 12 m [facility], were you homeless or living in a skilled nursing (including now)? No 08/12/2024 Yearly Questionnaire Answer [...] Description 12/05/2024 8:01 AM EDT Hospital Encounter [facility] ENDOSCOPY [address] [place] [address] Chris Orosco MD [address] [place] [phone] 12/05/2024 8:01 AM EDT - 12/05/2024 8:31 AM EDT Surgery [facility] ENDOSCOPY [address] [place] [phone] Chris Orosco MD [address] [place] [phone] EGD Scheduled Procedures Name Priority Associated Diagnoses Date/Ti me EGD Cirrhosis of liver with ascites, unspecified hepatic cirrhosis type (CMS-HCC) 12/05/2024 8:01 AM EDT documented as of this encounter Visit Diagnoses Diagnosis Pre-transplant evaluation for chronic liver disease- Primary Alcoholic cirrhosis of liver without ascites (CMS-HCC) Cirrhosis of liver with ascites, unspecified hepatic cirrhosis type (CMS-HCC) documented in this encounter
--- OUTSIDE RECORDS SUMMARY | 2024-10-17 11:56 | XMS_ITS | Encounter Summary ---
Author Organization [facility] Address [address] [place] [address] Care Team Providers Care Outside Parts Salesman Name Role Phone Unavailable Primary Care Provider [...] release of HIV test results or diagnoses. [id number] Reason for Referral * Surgical (Routine) - New Request Specialty Diagnoses / Procedures Referred By Contac t Referred To Contact Gastroenterology Diagnoses Cirrhosis of liver with ascites, unspecified hepatic cirrhosis type ([facility]) Procedures Case request GI: EGD Chris Orosco MD [address] [place] [address] Phone: tel: fax: Referral ID Status Reason Start Date Expiration Date V isits Requested Visits Authorized [id number] New Request 09/05/2024 03/04/2025 1 1 Encounter Details Date Type Department Care Team (Late st Contact Info) Description 09/05/2024 Orders Only [facility] Gastroenterology at [facility] Office [address] [place] [address] [address] [place] [address] Chris Orosco MD [address] [place] [phone] Cirrhosis of liver with ascites, unspecified hepatic [...] the past 12 months has th e [employer], gas, oil, or water [employer] threatened to shut off services in your [...] alcohol? Never 09/05/2024 12:47 AM SANTOT Minh Torres R N Q2: How many drinks containing alcohol do you have on a typical day when you are drinking? Patient does not drink 09/05/2024 12:47 AM SANTOT Minh Torres RN Q3: How often do you have six or more drinks on one occasion? Never 09/05/2024 12:47 AM Minh Dixon R N documented as of this encounter Plan of Treatment Upcoming Encounters Date Type Department Care Team (Late st Contact Info) Description 12/05/2024 8:01 AM EDT Hospital Encounter [facility] ENDOSCOPY [address] [place] [phone] Chris Orosco MD [address] [place] [phone] 12/05/2024 8:01 AM EDT - 12/05/2024 8:31 AM EDT Surgery [facility] ENDOSCOPY [address] [place] [phone] Chris Orosco MD [address] [place] [phone] EGD Scheduled Procedures Name Priority Associated [...]
--- OUTSIDE RECORDS SUMMARY | 2024-10-17 11:56 | XMS_ITS | Encounter Summary ---
Author Organization [facility] Address [facility] [place] [address] Care Team Providers Care Regional Flatbed Truck Driver Name Role Phone Unavailable Primary Care Provider [...] release of HIV test results or diagnoses. [id number] Reason for Visit * Reason Comments Appointment Encounter Details Date Type Department Care Team (Late st Contact Info) Description 09/03/2024 Telephone [facility] Interventional Radiology [address] [place] [phone] De Leon, Shamone Appointment Social History [...] Recorded In the past 12 months has [employer], gas, oil, or water [employer] threatened to shut off services in your [...] any time in the past 12 m [facility], were you homeless or living in a fpc (including now)? No 08/12/2024 Yearly Questionnaire Answer [...] Telephone Encounter - Shamone De Leon - 09/03/2024 11:58 AM EDT In an attempt to schedule Julien Anderson for an IR Procedure, lvm to return call to [phone] opt 1 to schedule. documented in this encounter Plan of Treatment Upcoming Encounters Date Type Department Care Team (Late st Contact Info) Description 12/05/2024 8:01 AM EDT Hospital Encounter [facility] ENDOSCOPY [address] [place] [address] Chris Orosco MD [address] [place] [phone] 12/05/2024 8:01 AM EDT - 12/05/2024 8:31 AM EDT Surgery [facility] ENDOSCOPY [address] [place], [place] [address] Chris Orosco MD [address] [place] [phone] EGD Scheduled Procedures Name Priority Associated Diagnoses Date/Ti me EGD Cirrhosis of liver with ascites, unspecified hepatic cirrhosis type ([facility]-HCC) 12/05/2024 8:01 AM EDT documented as of this encounter Visit Diagnoses Not on filedocumented in this encounter
--- OUTSIDE RECORDS SUMMARY | 2024-10-17 11:56 | XMS_ITS | Data Portability ---
Author Organization [facility],, Main Office Address [address] [place] [address] Assessment No assessment recorded. Plan of Treatment [...] Available No t Available BD Regular Bevel [place] 18 gauge x 1 active Not Available [...] No t Available Vitals Date Recorded Body height Body mass index (BMI) Body weight Heart rate Body temperature Systolic blood pressure Diastolic blood pressure Provider Name and Address Organization Details Last Updated DateTime 3 193.04 cm 29.1 kg/m2 110108. 58 g 112 /min 97.7 [degF] 141 mm[Hg] 84 mm[Hg] [facility], 3 13:14:11 Date Recorded Body height Body mass index (BMI) Body weight Heart rate Body temperature Systolic blood pressure Diastolic blood pressure Provider Name and Address Organization Details Last Updated DateTime 4 193.04 cm 30.4 kg/m2 692288. 09 g 92 /min 97.5 [degF] 176 mm[Hg] 104 mm[Hg] [facility], 4 14:06:31 Date Recorded Body temperature Provider Name a nd Address Organization Details Last Updated DateTime 12/27/2020 99.5 [degF] Cuca Strickland [facility] GYNECOLOG[facility], 12/27/2020 13:41:33 Date Recorded Body weight Heart rate Body temperature Systolic blood pressure Diastolic blood pressure Provider Name and Address Organization Details Last Updated DateTime 04/03/2022 807598. 95 g 93 /min 97.6 [degF] 114 mm[Hg] 83 mm[Hg] Ashley Wallace [facility]YNECOLOG[facility], 14:42:57 Social History None recorded. Functional Status None recorded. Mental Status None recorded. Family History Nothing Reported. Medical History No medical history recorded. Past Encounters Encounter ID Performer Location Encounter Start Date Encounter Closed Date Diagnosis/Indication Diagnosis SNOMED-CT Code Diagnosis ICD10 Code Diagnosis Note [id number] Yung Felipe DO Main Office [address] [place] [address] 12/27/2020 13:24:24 12/27/2020 14:00:19 Evaluation of semen fertility 480791495 N46.9 semen analysis [id number] Yung Felipe DO Main Office [address] [place] [address] 07/04/2021 14:47:56 07/04/2021 16:00:05 Evaluation of semen fertility 152804627 N46.9 semen analysis [id number] Yung Felipe DO Main Office [address] [place] [address] 05/31/2022 13:04:00 05/31/2022 13:50:01 Evaluation of semen fertility 657669765 N46.9 semen analysis + viability: analysis by Dr. Ruiz [id number] Yung Felipe DO Main Office [address] [place] [address] 10/22/2023 13:58:48 10/22/2023 14:31:18 Evaluation of semen fertility 816836818 N46.9 semen analysis + viability: analysis by [...] Yung Felipe DO [address], [place], [address], [facility]YNECOLOG[facility], 08/06/2021 23:24:22 05/31/2022 text/html semen analysis + viability [address], [place], [address], [facility], 05/31/2022 13:57:30 10/22/2023 text/html semen analysis NAA [address], [place], [address], [facility]YNEC[facility], 10/22/2023 16:29:00
--- OUTSIDE RECORDS SUMMARY | 2024-10-17 11:56 | XMS_ITS | Encounter Summary ---
Author Organization [facility] Address [address] [place] [address] Care Team Providers Care Early Childhood Coordinator Name Role Phone Unavailable Primary Care [...] release of HIV test results or diagnoses. [id number] Health Encounter Details Date Type Department Care Team (Late st Contact Info) Description 09/02/2024 Telephone [facility] Gastroenterology at [place] [facility] [address] [place] [phone] Chris Orosco MD [address] [place] [address] Social History Tobacco Use Types Packs/Day Years Used Date Smoking Tobacco: Former Cigarettes Smokeless Tobacco: Current Alcohol Use Standard Drinks/Week Comments Yes 0 (1 standard drink = 0.6 oz pure alcohol) History of alcohol abuse, reports no use in 3 week- typically endorses use as 4 glasses of wine a days Utilities Answer Date Recorded In the past 12 months has [employer], gas, oil, or water [employer] threatened to shut off services in your [...] in the past 12 m [facility], were you homeless or living in [...] encounter Miscellaneous Notes * Telephone Encounter - Lucio Tapia MA - 09/02/2024 3:49 PM EDT Called and scheduled patient for EGD on 12-05-2024 at 8:00 AM Confirmed that patient is not on any kind of anticoagulation therapy. Instructed patient to be NPO after midnight with the exception of blood pressure medication. Instructed to arrive at [facility] at 6:30 AM with escort. Directions given, verbalized understanding. Written instructions and directions provided. documented in this encounter Plan of Treatment Upcoming Encounters Date Type Department Care Team (Late st Contact Info) Description 12/05/2024 8:01 AM EDT Hospital Encounter [facility] ENDOSCOPY [address] [place] [address] Chris Orosco MD [address] [place] [phone] 12/05/2024 8:01 AM EDT - 12/05/2024 8:31 AM EDT Surgery [facility] ENDOSCOPY [address] [place] [address] Chris Orosco MD [address] [place] [phone] EGD Scheduled Procedures Name Priority Associated Diagnoses Date/Ti me EGD Cirrhosis of liver with ascites, unspecified hepatic cirrhosis type ([facility]-HCC) 12/05/2024 8:01 AM EDT documented as of this encounter Visit Diagnoses Not on filedocumented in this encounter
--- OUTSIDE RECORDS SUMMARY | 2024-10-17 11:57 | XMS_ITS | Encounter Summary ---
Author Organization [facility] Address [address] [place] [address] Care Team Providers Care Service Order Dispatcher Name Role Phone Unavailable Primary Care Provider Unavailabl e Encounter Details Date Type Department Care Team (Late st Contact Info) Description 06/03/2018 Transcribed Document [facility] [address] [place] [address] ProviderEbenezer MD [address] [place], [place] [phone] Social History Tobacco Use Types Packs/Day Years Used Date Smoking Tobacco: Never Assessed Sex and Gender Information Value Date Recorded Sex Assigned at Male 11/08/2021 8:27 PM CDT Legal Sex Male 8:27 PM CDT Gender Identity Male 11/08/2021 8:27 PM CDT Sexual Orientation Not on file documented as of this encounter Miscellaneous Notes * Cerner Conversion Note - Historical ProviderMD - 06/03/2018 2:24 PM ELECTRONICS SUPERVISOR Electronically signed by Gabriela [facility] Conversion Food Analyst Cerner at 08/29/2022 6:41 PM CDT documented in this encounter Plan of Treatment Not on file documented as of this encounter Visit Diagnoses Not on filedocumented in this encounter
--- OUTSIDE RECORDS SUMMARY | 2024-10-17 11:57 | XMS_ITS | Encounter Summary ---
Author Organization [facility] Address [facility] [place] [address] Care Team Providers Care Chair Trimmer Name Role Phone Unavailable Primary Care Provider [...] release of HIV test results or diagnoses. [id number] Reason for Visit * Reason Comments Medical Management Plan of Care Inquiry /Question Encounter Details Date Type Department Care Team (Late st Contact Info) Description 09/16/2024 Telephone [facility] Gastroenterology at [facility] [address] [place] [phone] Gerri Peterson MD [address] [place] [address] Medical Management (Plan of Care Inquiry/Question ) Social History Tobacco Use Types Packs/Day Years Used Date Smoking Tobacco: Former Cigarettes Smokeless Tobacco: Current Alcohol Use Standard Drinks/Week Comments Yes 0 (1 standard drink = 0.6 oz pure alcohol) History of alcohol abuse, reports no use in 3 week- typically endorses use as 4 glasses of wine a days Utilities Answer Date Recorded In the past 12 months has [employer], gas, oil, or water company threatened to [...] Telephone Encounter - Ingrid Galvez RN - 09/16/2024 12:55 PM EDT RN spoke to Yvonne and provided plat ct of 47 Critical Results Julien : 1985 Caller: Yvonne Critical Result : Platelets Ordering Physician: Drawn per [facility] Comment: This was drawn @ 10:40 am post paracentesis Physician/Provider Notified: Gerri Peterson Date: 09/16/24 Time: 1257 Orders Given: Not at time of this encounter Result Received, Documented, and Read Back by: Ingrid Galvez RN Date/Time: 09/16/2024 12:56 PM Patient Notified: No Date/Time: 09/16/2024 / 12:56 PM Yvonne is aware I will make Dr Peterson aware RN routed High priority Plts 09/09/24 were 45 * Telephone Encounter - Chelle Michaels MA - 09/16/2024 12:39 PM EDT Yvonne called back asking for a nurse to call to review a critical lab. Please call - [phone] * Telephone Encounter - Ingrid Galvez RN - 09/16/2024 11:48 AM EDT RN was not able to reach per secure chat, I'mOK, paging so RN called on cell. RN spoke to Dr Peterson on phone and to give Albumin 25% 8G/L for greater than 5 L removed. Not to remove more than 10 L. (Max 100g Grams albumin in 24 hours). Verbal order given to Yvonne as was approved per Dr Peterson * Telephone Encounter - Tamar Blackwood - 09/16/2024 9:58 AM EDT Yvonne from [facility] asked if advised to do Albumin replacement after paracentesis? Julien in route to appointment Yvonne can be reached at [phone] documented in this encounter Plan of Treatment Upcoming Encounters Date Type Department Care Team (Late st Contact Info) Description 12/05/2024 8:01 AM EDT Hospital Encounter [facility] ENDOSCOPY [address] [place] [phone] Chris Orosco MD [address] [place] [phone] 12/05/2024 8:01 AM EDT - 12/05/2024 8:31 AM EDT Surgery [facility] ENDOSCOPY [address] [place] [phone] Chris Orosco MD [address] [place] [phone] EGD Scheduled Procedures Name Priority Associated Diagnoses Date/Ti me EGD Cirrhosis of liver with ascites, unspecified hepatic cirrhosis type ([facility]) 12/05/2024 8:01 AM EDT documented as of this encounter Visit Diagnoses Not on filedocumented in this encounter Additional Health Concerns Infection Onset Date Last Indicated Resolved Time C. difficile 09/09/2024 09/09/2024 documented as of this encounter
--- OUTSIDE RECORDS SUMMARY | 2024-10-17 11:57 | XMS_ITS | Encounter Summary ---
Author Organization [facility] Address [address] [place] [address] Care Team Providers Care Manager Scientific Name Role Phone Unavailable Primary Care Provider Unavailabl e Encounter Details Date Type Department Care Team (Late st Contact Info) Description 06/03/2018 Transcribed Document [facility] [address] [place] [address] ProviderEbenezer MD [address] [place] [address] Social History Tobacco Use Types Packs/Day Years Used Date Smoking Tobacco: Never Assessed Sex and Gender Information Value Date Recorded Sex Assigned at Male 11/08/2021 8:27 PM CDT Legal Sex Male 8:27 PM CDT Gender Identity Male 11/08/2021 8:27 PM CDT Sexual Orientation Not on file documented as of this encounter Miscellaneous Notes * [employer]ner Conversion Note - Ebenezer ProviderMD - 06/03/2018 3:03 PM INSURANCE LOSS ASSESSOR ED Discharge Entered On: 06/03/2018 15:03 EST Performed On: 06/03/2018 15:03 EST by Lizeth Almeida, zanjero Process Patient Disposition : Discharge Personal Belongings With Patient : Yes Patient Education Completed : Yes Teaching Evaluation : Verbalizes understanding IV Discontinued : Not applicable Nursing Documentation Completed : Yes Lizeth Almeida, RN - 06/03/2018 15:03 EST ED Discharge Discharge To : Home without planned follow-up Mode Of Departure : Private vehicle Accompanied By : Friend Discharge Instructions Reviewed With, Opportunity For Questions Given : Patient Prescriptions Given to Patient : Yes Number of Prescriptions Given : 1 Medications Given to Patient : Yes Lizeth Almeida, RN - 06/03/2018 15:03 EST Electronically signed by Gabriela [facility] Conversion Unit Assembler Cerner at 08/29/2022 6:35 PM CDT documented in this encounter Plan of Treatment Not on file documented as of this encounter Visit Diagnoses Not on filedocumented in this encounter
--- OUTSIDE RECORDS SUMMARY | 2024-10-17 11:57 | XMS_ITS | Encounter Summary ---
Author Organization [email or web address] Address [address] [place] [address] Care Team Providers Care Licensed Clinical Social Worker Name Role Phone Unavailable Primary Care Provider Carmen jimenez Encounter Details Date Type Department Care Team (Late st Contact Info) Description 06/03/2018 Transcribed Document [facility] [place] [address] ProviderEbenezer MD [address] [place] [address] Social History Tobacco Use Types [...] Conversion Note - Ebenezer ProviderMD - 06/03/2018 3:04 PM NETWORK ARCHITECT [address] [place] [address] Patient Information Name: JULIEN ZELAYA Age: 33 Years Date of : 1985 Arrival Time: 06/03/2018 12:08:00 Diagnosis Laceration of finger of left hand; Laceration of finger of right hand Primary Care Physician: SALLY EVERETT (REF) T Provider Information Primary Provider: DOMINIQUE BREWER PA-C Secondary Provider: JULIEN ZELAYA has been given the following list of patient education materials, prescriptions and follow-up instructions: Follow-up Instructions: With: Address: When: Return to Emergency Department Within 2 weeks Comments: Return for suture/staple removal With: Address: When: SALLY (REF) MARGUERITE [facility]I [facility] [address] [place] [address] [employer] (1) Within 2 to 3 days Patient Education Materials: Laceration Care, Adult A laceration is a cut that goes through all of the layers of the skin and into the tissue that is right under the skin. Some lacerations heal on their own. Others need to be closed with stitches (sutures), jerry, skin adhesive strips, or skin glue. Proper laceration care minimizes the risk of infection and helps the laceration to heal better. How is this treated? If sutures or jerry were used:??? Keep the wound clean and dry. ??? If you were given a bandage (dressing), you should change it at least one time per day or as told by your health care provider. You should also change it if it becomes wet or dirty. ??? Keep the wound completely dry for the first 24 hours or as told by your health care provider. After that time, you may shower or bathe. However, make sure that the wound is not soaked in water until after the sutures or jerry have been removed. ??? Clean the wound one time each day or as told by your health care provider: ? Wash the wound with soap and water. ? Rinse the wound with water to remove all soap. ? Pat the wound dry with a clean towel. Do not rub the wound. ??? After cleaning the wound, apply a thin layer of antibiotic ointment?as told by your health care provider. This will help to prevent infection and keep the dressing from sticking to the wound. ??? Have the sutures or jerry removed as told by your health care provider. If skin adhesive strips were used:??? Keep the wound clean and dry. ??? If you were given a bandage (dressing), you should change it at least one time per day or as told by your health care provider. You should also change it if it becomes dirty or wet. ??? Do notget the skin adhesive strips wet. You may shower or bathe, but be careful to keep the wound dry. ??? If the wound gets wet, pat it dry with a clean towel. Do not rub the wound. ??? Skin adhesive strips fall off on their own. You may trim the strips as the wound heals. Do not remove skin adhesive strips that are still stuck to the wound. They will fall off in time. If skin glue was used:??? Try to keep the wound dry, but you may briefly wet it in the shower or bath. Do not soak the wound in water, such as by swimming. ??? After you have showered or bathed, gently pat the wound dry with a clean towel. Do not rub the wound. ??? Do notdo any activities that will make you sweat heavily until the skin glue has fallen off on its own. ??? Do notapply liquid, cream, or ointment medicine to the wound while the skin glue is in place. Using those may loosen the film before the wound has healed. ??? If you were given a bandage (dressing), you should change it at least one time per day or as told by your health care provider. You should also change it if it becomes dirty or wet. ??? If a dressing is placed over the wound, be careful not to apply tape directly over the skin glue. Doing that may cause the glue to be pulled off before the wound has healed. ??? Do notpick at the glue. The skin glue usually remains in place for 5?10 days, then it falls off of the skin. General Instructions??? Take [id number] and prescription medicines only as told by your health care provider. ??? If you were prescribed an antibiotic medicine or ointment, take or apply it as told by your doctor. Do not stop using it even if your condition improves. ??? To help prevent scarring, make sure to cover your wound with sunscreen whenever you are outside after stitches are removed, after adhesive strips are removed, or when glue remains in place and the wound is healed. Make sure to wear a sunscreen of at least 30 SPF. ??? Do notscratch or pick at the wound. ??? Keep all follow-up visits as told by your health care provider. This is important. ??? Check your wound every day for signs of infection. Watch for: ? Redness, swelling, or pain. ? Fluid, blood, or pus. ??? Raise (elevate) the injured area above the level of your heart while you are sitting or lying down, if possible. Contact a health care provider if: ??? You received a tetanus shot and you have swelling, severe pain, redness, or bleeding at the injection site. ??? You have a fever. ??? A wound that was closed breaks open. ??? You notice a bad smell coming from your wound or your dressing. ??? You notice something coming out of the wound, such as wood or glass. ??? Your pain is not controlled with medicine. ??? You have increased redness, swelling, or pain at the site of your wound. ??? You have fluid, blood, or pus coming from your wound. ??? You notice a change in the color of your skin near your wound. ??? You need to change the dressing frequently due to fluid, blood, or pus draining from the wound. ??? You develop a new rash. ??? You develop numbness around the wound. Get help right away if: ??? You develop severe swelling around the wound. ??? Your pain suddenly increases and is severe. ??? You develop painful lumps near the wound or on skin that is anywhere on your body. ??? You have a red streak going away from your wound. ??? The wound is on your hand or foot and you cannot properly move a finger or toe. ??? The wound is on your hand or foot and you notice that your fingers or toes look pale or bluish. This information is not intended to replace advice given to you by your health care provider. Make sure you discuss any questions you have with your health care provider. Document Released: 04/30/2006 Document Revised: 09/29/2016 Document Reviewed: 04/26/2015 [employer] Patient Education ? 2017 [employer] Allergies: No Known Medication Allergies Medication Information: Prescription Display cephalexin (Keflex 500 mg oral capsule) 1 Cap, Oral, Cap, BID, X 5 Day(s), # 10 Cap, 0 Refill(s) Home Meds Display hydrochlorothiazide-losartan (hydrochlorothiazide-losartan 12.5 mg-100 mg oral tablet) 1 Tab, Oral, Tab, Daily, # 30 Tab, 0 Refill(s) Laboratory or Other Results This Visit (last charted value for your 06/03/2018 visit) No Laboratory or Other Results This Visit Medication Comment: Procedures: Laboratory Orders No laboratory orders were placed. Radiology Orders No radiology orders were placed. Cardiology Orders No cardiology orders were placed. This statement is to verify that JULIEN ZELAYA was seen at [facility] on ,06/03/2018 15:04:17. This is not a work excuse, if a work excuse was needed it will be in addition to this statement as a separate form. IMPORTANT: The examination and treatment you have received in the Emergency Department has been done to provide an appropriate evaluation and stabilizing treatment on an emergency basis only. Given the limited resources, it is not meant to be a substitute for complete medical care. The follow-up doctor you named will receive a copy of your records and all test reports. IT IS IMPORTANT THAT YOU SCHEDULE A FOLLOW-UP APPOINTMENT AND ARE RE-EVALUATED. You should report any new complaints, symptoms, or remaining problems at that time. IT IS IMPOSSIBLE FOR THE EMERGENCY DEPARTMENT TO RECOGNIZE AND TREAT ALL ELEMENTS OF INJURY OR ILLNESS IN A SINGLE VISIT. If you have been referred to a specialist physician, it means that we believe you may have a condition that requires the expertise of a specialist. KEEP IN MIND THAT THE SPECIALIST HAS HIS/HER OWN OFFICE POLICIES WHICH MAY REQUIRE PROPER INSURANCE OR PAYMENT UP FRONT BEFORE THE SPECIALIST WILL SEE YOU. It is your responsibility to call the specialist physician to make an appointment. We do not have the ability to identify specialists/physicians that work with specific insurance companies. Please be advised that all financial charges or billing practices are determined by that practice, not the hospital. If your insurance company requires that you see a specialist from their approved list, it is your responsibility to contact your insurance company to make those arrangements. It is also your responsibility to follow any other requirements of your insurance company necessary to obtain coverage for claims submitted. If you had special tests, such as EKG???s or X-rays, the interpretation of your tests given to you by the Emergency Dept. Physician is a preliminary report. Some fractures and illnesses fail to show up on preliminary tests. We will review them again within 24-48 hours. We will call you if there are any new suggestions. If your symptoms continue notify your physician. After you leave, you should follow the instructions below. In all events, you may obtain a copy of your Emergency Department visit from Medical Records. Please call to be directed to this department. We will bill your insurance; however, you are responsible today for any co-pay amounts. You will receive a separate bill for any services you may have received including: emergency, radiology, or pathology physicians. Please be sure we have an accurate contact phone number and address, should we need to call you for any reason. CIGARETTE SMOKING: The facts are clear; cigarette smoking will shorten your life. Smoking can cause many illnesses along the way. As a healthcare provider, [facility] recommends that you stop smoking. Assistance with quitting is available by contacting 0-005-LMYM-NOW. This is a free resource providing counseling, support, and referral. Or you may contact your personal physician. As part of your treatment plan, your physician may have prescribed a limited course of a controlled substance. This medication may be given to help people with moderate or severe pain or for other medical conditions, but there are risks involved with treatment. Common side effects may include nausea, constipation, drowsiness, sweating, itching, dry mouth, and rash. More serious side effects may include cognitive and motor impairment, like problems with thinking, concentrating, alertness, and movement (e.g. slowed reflexes), and driving and operating heavy machinery can be dangerous. It is important for you to talk to your physician if you have these side effects or questions. These controlled substances can produce physical dependence and be habit-forming if taken for an extended period of time, which means that the body has gotten used to them and may experience withdrawal symptoms if they are abruptly stopped. Withdrawal symptoms can include runny nose, sweating, goose bumps, diarrhea, abdominal cramping, rapid heartbeat, difficulty sleeping, and nervousness. The home medications listed are only as accurate as the information you provided. Please continue taking all of your medications prescribed by your Primary Care Provider unless specifically told to change or discontinue the medication. Please direct any questions regarding your home medications to your Primary Care Provider. YOU ARE THE MOST IMPORTANT FACTOR IN YOUR RECOVERY. ?? Follow your instructions carefully ?? Take your medicines as prescribed ?? Most important, see a provider as discussed. If you do not have a provider, we can provide a list of clinics Confidential This message and accompanying documents are covered by Electronic Communications Privacy Act 18 U.S.C. ???Sections 4331-9732,?? and contain information intended for the specified individual(s) only. This information is confidential. If you are not the intended recipient or an agent responsible for delivering it to the intended recipient, you are hereby notified that you have received the document in error and that any review, dissemination, copying, or the taking of any action based on the contents of this information is strictly prohibited. If you have received this communication in error, please notify us immediately by email, and delete the original message. STROKE is an EMERGENCY [employer] F.A.S.T! FACE ?? Facial droop ?? Uneven smile ARM ?? Arm numbness ?? Arm weakness SPEECH ?? Slurred speech ?? Difficulty speaking or understanding TIME ?? Call 911 and get to the hospital immediately Have the ambulance go to the nearest stroke center. STROKE Risk Factors High blood pressure High cholesterol Heart Disease Diabetes Smoking Heavy alcohol use Physical inactivity and obesity Atrial Fibrillation (irregular heartbeat) Family history of stroke Acknowledgment I hereby acknowledge receipt of these instructions and information above. I understand that I have received Emergency Treatment only which is not a substitute for complete medical care and acknowledge that all of my medical problems may not be known, identified, or treated prior to my release. I UNDERSTAND THE NEED TO ARRANGE FOLLOW-UP CARE WITH THE PHYSICIAN INDICATED. I UNDERSTAND THAT I SHOULD CONTACT MY PHYSICIAN IMMEDIATELY OR RETURN TO THE EMERGENCY DEPARTMENT IF MY CONDITION WORSENS, FAILS TO IMPROVE, OR NEW SYMPTOMS APPEAR. Vital Signs B/P PULSE RESP. RATE TEMPERATURE PULSE OX Signature of Emergency Provider Date / Time Signature of Emergency Nurse Date / Time Reminder: Be sure to sign up for the My [facility] patient portal, which gives you 04/12 access to your medical information ??? including these discharge instructions ??? using your computer, smartphone, or tablet. Just go to [employer] to get started. Questions? Call . Acknowledgment I hereby acknowledge receipt of these instructions and information above. I understand that I have received Emergency Treatment only which is not a substitute for complete medical care and acknowledge that all of my medical problems may not be known, identified, or treated prior to my release. I UNDERSTAND THE NEED TO ARRANGE FOLLOW-UP CARE WITH THE PHYSICIAN INDICATED. I UNDERSTAND THAT I SHOULD CONTACT MY PHYSICIAN IMMEDIATELY OR RETURN TO THE EMERGENCY DEPARTMENT IF MY CONDITION WORSENS, FAILS TO IMPROVE, OR NEW SYMPTOMS APPEAR. Signature of Patient / Responsible Person Date / Time Please provide a telephone number where you can be reached. The best time to call is between: It is permissible to leave a message if no answer: Yes____ No____ Nurse Providing Instructions: Emergency Physician: Electronically signed by Luis Eduardo Ochoa Conversion Planetarium Sky Show Technician Cerner at 08/29/2022 6:45 PM CDT documented in this encounter Plan of Treatment Not on file documented as of this encounter Visit Diagnoses Not on filedocumented in this encounter
--- OUTSIDE RECORDS SUMMARY | 2024-10-17 11:57 | XMS_ITS | Encounter Summary ---
Author Organization [email or web address] Address [address] [place] [id number] Care Team Providers Care American Indian Studies Professor Name Role Phone Unavailable Primary Care Provider Unavaillia e Encounter Details Date Type Department Care Team (Late st Contact Info) Description 06/03/2018 Transcribed Document [facility] [place] [facility] [place] [address] ProviderEbenezer MD [address] [place] [address] Social History Tobacco Use Types [...] Conversion Note - Historical ProviderMD - 06/03/2018 1:05 PM 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 History source: Patient. Arrival mode: Private vehicle. History limitation: None. 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 lacerations noted with bleeding controlled . History of Present Illness The patient presents with lacerations to R index and L middle fingers. The onset was just prior to arrival. The course/duration of symptoms is constant. Type of injury: an incision. The location where the incident occurred was at home. Location: Fingers:Not second fingerRight distal. Fingers:Third fingerLeft. The character of symptoms is pain and bleeding. The degree of bleeding is moderate. The degree of pain is minimal. The exacerbating factor is none. The relieving factor is none. Risk factors consist of none. Prior episodes: rare. Therapy today: none. Associated symptoms: none. Patient presents to the ER complaining of lacerations to R 2nd finger and L 3rd finger, stating he was trying to catch a bottle while it was falling and it broke. Scant active bleeding at this time. N/V intact. No FB seen. Review of Systems Constitutional symptoms: No fever, no chills. Skin symptoms: lacerations. Eye symptoms: Vision unchanged. ENMT symptoms: No ear pain, no sore throat. Respiratory symptoms: No cough, Cardiovascular symptoms: No chest pain, no palpitations. Gastrointestinal symptoms: No abdominal pain, no nausea, no vomiting. Genitourinary symptoms: No dysuria, Musculoskeletal symptoms: No back pain, no Muscle pain. Neurologic symptoms: No headache, Additional review of systems information: All other systems reviewed and otherwise negative. Health Status Allergies: Allergic Reactions (Selected) No Known Medication Allergies. Medications: (Selected) Inpatient Medications Ordered Adacel (Tdap): 0.5 mL, IntraMuscular, 1-Time lido/epi/tetracaine top: 1 Application, Topical, 1-Time lidocaine 2% injectable solution: 2 mL, IntraDermal, 1-Time lidocaine 2% injectable solution: 5 mL, IntraDermal, 1-Time Prescriptions Prescribed Keflex 500 mg oral capsule: 1 Cap, Oral, BID, for 5 Day(s), 10 Cap, 0 Refill(s) Documented Medications Documented hydrochlorothiazide-losartan 12.5 mg-100 mg oral tablet: 1 Tab, Oral, Daily, 30 Tab, 0 Refill(s). Immunizations: Unknown. Past Medical/ Family/ Social History Medical history Cardiovascular: hypertension. Surgical history: No active procedure history items have been selected or recorded.. Family history: No family history items have been selected or recorded.. Social history: Social & Psychosocial Habits Tobacco 06/03/2018 Smoking Status 10 or more cigarettes (1/ , Reviewed as documented in chart. Problem list: Active Problems (1) HTN (hypertension) , per nurse's notes. Physical Examination Vital Signs Vital Signs/Vital Measures 06/03/2018 12:12 EST Temperature Source Tympanic Temperature Mode Fahrenheit Temperature, Fahrenheit 97.8 Deg F Clinical Temperature, C 36.6 Deg C Peripheral Pulse Rate 78 bpm Respiratory Rate 18 Breaths/Min Systolic Blood Pressure 180 mmHg HI Diastolic Blood Pressure 114 mmHg HI Oxygen Saturation 99 % . Measurements 06/03/2018 12:12 EST Height Source Stated Height Entry Format Willacy Height/Length, SALVADOREAN (ft) 6 ft Height/Length SALVADOREAN 4 Inch CLINICALHEIGHT 193.04 cm Aubrey Body Weight 85.74 kg Weight Source, ED Standing scale Weight Entry Format Willacy Weight Z[place]ian lb 265 lb CLINICALWEIGHT 120.45 kg Body Surface Area (BSA) 2.5 m2 Body Mass Index 32.3 kg/m2 HI . Oxygen Saturation 06/03/2018 12:12 EST Oxygen Saturation 99 % . General: Alert, no acute distress. Skin: Warm, dry, intact. Head: Normocephalic, atraumatic. Neck: Trachea midline. Eye: Pupils are equal, round and reactive to light, extraocular movements are intact, normal conjunctiva. Ears, nose, mouth and throat: Oral mucosa moist. Cardiovascular: Regular rate and rhythm, No murmur, Normal peripheral perfusion. Respiratory: Lungs are clear to auscultation, respirations are non-labored. Gastrointestinal: Non distended. Back: Normal range of motion. Musculoskeletal: Normal ROM, Fingers/toes: Right, distal, second, finger(s), laceration (2 cm, flap, see procedure note description), Fingers/toes: Left, distal, third, finger(s), laceration (1 cm, flap, subcutaneous, see procedure note description). Neurological: Alert and oriented to person, place, time, and situation, No focal neurological deficit observed. Psychiatric: Cooperative, appropriate mood & affect. Medical Decision Making Documents reviewed: Emergency department nurses' notes. Procedure Laceration repair Time: 06/03/2018 13:50:00 . Confirmed: Patient, procedure, side, and site correct. Consent: Patient. Description/ repair Laceration 1 cm in length.Finger: on the left. Shape: flap. Depth: subcutaneous. Neurovascular/ tendon exam: intact. Anesthesia: 2% lidocaine, 0.5% bupivacaine, digital block. Preparation: sterile field established, skin prepped with chlorhexidine. Irrigation: copious, with saline. Debridement: none. Skin closure: # 6 sutures, with 4 -0 Nylon, simple technique, interrupted technique. Complexity: single layer. Description/ repair Laceration 2 cm in length.Finger: on the right, digit # 2, distal. Shape: flap. Depth: subcutaneous. Details: clean. Neurovascular/ tendon exam: intact. Anesthesia: 2 ml, 1% lidocaine, injected locally. Irrigation: moderate, with saline. Debridement: none. Skin closure: # 4 sutures, with 8 -0 Nylon, simple technique, interrupted technique. Complexity: single layer. Notes: Wounds evaluated to base after flushing, no FB noted. Impression and Plan Diagnosis Laceration of finger of left hand - Discharge, Emergency medicine, Medical Laceration of finger of right hand - Discharge, Emergency medicine, Medical Plan Condition: Stable. Disposition: Discharged Admit/Transfer/Discharge: Discharge (Order): Start: 06/03/2018 14:22 EST, Discharge to: Home. Prescriptions: Prescription [facility]: Keflex 500 mg oral capsule (Prescribe): 1 Cap, Oral, BID, for 5 Day(s), 10 Cap, 0 Refill(s). Patient was given the following educational materials: Laceration Care, Adult. Follow up with: SALLY EVERETT (REF) Within 2 to 3 days; Return to Emergency Department Within 2 weeks Return for suture/staple removal. Counseled: Patient, Regarding diagnosis, Regarding diagnostic results, Regarding treatment plan, Regarding prescription, Patient indicated understanding of instructions. Electronically signed by Luis Eduardo Ochoa Conversion Heating And Ventilating Worker Cerner at 08/29/2022 6:34 PM CDT documented in this encounter Plan of Treatment Not on file documented as of this encounter Visit Diagnoses Not on filedocumented in this encounter
--- OUTSIDE RECORDS SUMMARY | 2024-10-17 11:57 | XMS_ITS | Encounter Summary ---
Author Organization [employer] Address [address] [place] [address] Care Team Providers Care Podopediatrician Name Role Phone Unavailable Primary Care Provider Unavailabl e Encounter Details Date Type Department Care Team (Late st Contact Info) Description 06/03/2018 Transcribed Document [facility] [place] [facility] [place] [address] ProviderEbenezer MD [address] [place] [address] Social History Tobacco Use Types [...] Conversion Note - Historical ProviderMD - 06/03/2018 12:08 PM CSW ED Triage Entered On: 06/03/2018 12:17 EST Performed On: 06/03/2018 12:12 EST by KANU VELEZ RN ED Triage Across the Room Triage Date/Time : 06/03/2018 12:12 EST Chief Complaint : lacerations to rt index and left middle finger 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 lacerations noted with bleeding controlled KANU VELEZ RN - 06/03/2018 12:12 EST DCP GENERIC CODE Tracking Acuity : 3 - Urgent Tracking Group : [facility] KANU VELEZ RN - 06/03/2018 12:12 EST Mode of Arrival : Ambulatory Transported to ED by : Private vehicle To Room Via : Ambulate Accompanied By : Friend ED Vital Signs : Document Height & Weight : Document ED Allergies : Document ED Reason for Visit : Document Tetanus Immunization : Unknown KANU VELEZ RN - 06/03/2018 12:12 EST Infectious Disease History Infectious Disease History : Chicken pox/Shingles Fever/Chills Last 48 Hours : No Travel To Regions with Travel Advisories : No Travel Outside [place] Within Last 30 Days : No Contact With Traveler to Advisory Region : No Tuberculosis Symptoms : None KANU VELEZ RN - 06/03/2018 12:12 EST Vital Signs ED Temperature Source : Tympanic Temperature Mode : Fahrenheit Temperature, Fahrenheit : 97.8 Deg F ED Pain : Yes Clinical Temperature, C : 36.6 Deg C Peripheral Pulse Rate : 78 bpm Respiratory Rate : 18 Breaths/Min Systolic Blood Pressure : 180 mmHg (HI) Diastolic Blood Pressure : 114 mmHg (HI) Oxygen Saturation : 99 % KANU VELEZ RN - 06/03/2018 12:12 EST Allergy (As Of: 06/03/2018 12:17:41 EST) Allergies (Active) No Known Medication Allergies Estimated Onset Date: Unspecified ; Created By: KANU VELEZ RN; Reaction Status: Active ; Category: Drug ; Substance: No Known Medication Allergies ; Type: Allergy ; Updated By: KANU VELEZ RN; Reviewed Date: 06/03/2018 12:15 EST Diagnosis Control ED (As Of: 06/03/2018 12:17:41 EST) Problems(Active) HTN (hypertension) (SNOMED CT :0097579176 ) Name of Problem: HTN (hypertension) ; Recorder: KAUN VELEZ RN; Confirmation: Confirmed ; Classification: Medical ; Code: [id number] ; Contributor System: Galazar ; Last Updated: 06/03/2018 12:14 EST ; Life Cycle Date: 06/03/2018 ; Life Cycle Status: Active ; Vocabulary: SNOMED CT Diagnoses(Active) Finger laceration Date: 06/03/2018 ; Diagnosis Type: Reason For Visit ; Confirmation: Complaint of ; Clinical Dx: Finger laceration ; Classification: Medical ; Clinical Service: Emergency medicine ; Code: PNED ; Probability: 0 ; Diagnosis Code: [id number] ED Height and Weight Height Source : Stated Height Entry Format : [place] Height, Feet : 6 ft(Converted to: 183 cm, 72 Inch) Height, Inches : 4 Inch(Converted to: 0 ft 4 Inch, 10.16 cm) Clinical Height : 193.04 cm Weight Source, ED : Standing scale Weight Entry Format : [place] Weight, Pounds : 265 lb Clinical Dosing Weight : 120.45 kg Body Surface Area (BSA) : 2.5 m2 Body Mass Index : 32.3 kg/m2 (HI) [place] Body Weight (IBW) : 85.74 kg KANU VELEZ RN - 06/03/2018 12:12 EST Pain Assessment Pain Assessment : Initial assessment Pain Scale Used : 0-10 Scale KANU VELEZ RN - 06/03/2018 12:12 EST Pain Scale Intensity : 2 KANU VELEZ RN - 06/03/2018 12:12 EST Image 4 - Images currently included in the form version of this document have not been included in the text rendition version of the form. documented in this encounter Plan of Treatment Not on file documented as of this encounter Visit Diagnoses Not on filedocumented in this encounter
--- OUTSIDE RECORDS SUMMARY | 2024-10-17 11:57 | XMS_ITS | Encounter Summary ---
Author Organization [facility] Address [address] [place] [address] Care Team Providers Care Systems Test Analyst Name Role Phone Unavailable Primary Care [...] release of HIV test results or diagnoses. [id number] Health Encounter Details Date Type Department Care Team (Late st Contact Info) Description 09/17/2024 Abstract [facility] [place] [facility] [address] [place] [phone] Gerri Peterson MD [address] [place] [address] Social History Tobacco Use Types Packs/Day Years Used Date Smoking Tobacco: Former Cigarettes Smokeless Tobacco: Current Alcohol Use Standard Drinks/Week Comments Yes 0 (1 standard drink = 0.6 oz pure alcohol) History of alcohol abuse, reports no use in 3 week- typically endorses use as 4 glasses of wine a days Utilities Answer Date Recorded In the past 12 months has [facility] [employer], gas, oil, or water [employer] threatened to shut off services in your [...] [place] [facility] (including now)? No 09/05/2024 Yearly Questionnaire Answer [...] 12/05/2024 8:01 AM EDT Hospital Encounter [facility] ENDOSCOPY [address] [place] [address] Chris Orosco MD [address] [place] [phone] 12/05/2024 8:01 AM EDT - 12/05/2024 8:31 AM EDT Surgery [facility] ENDOSCOPY [address] [place] [address] Chris Orosco MD [address] [place] [phone] EGD Scheduled Procedures Name Priority Associated Diagnoses Date/Ti me EGD Cirrhosis of liver with ascites, unspecified hepatic cirrhosis type ([facility]-HCC) 12/05/2024 8:01 AM EDT documented as of this encounter Procedures Procedure Name Priority Date/Time Associated Diagnosis Comments HEPATIC FUNCTION PANEL Routine 12:20 PM EDT RENAL FUNCTION PANEL, FASTING Routine 09/16/2024 12:20 PM EDT DIFFERENTIAL Routine 09/16/2024 12:20 PM EDT PROTIME-INR Routine 09/16/2024 12:20 PM EDT CBC Routine 09/16/2024 12:20 PM EDT CBC AND DIFFERENTIAL Routine 09/16/2024 12:20 PM EDT GLUCOSE, RANDOM Routine 09/16/2024 12:20 PM EDT HEPATIC FUNCTION PANEL Routine 12:20 PM EDT RENAL FUNCTION PANEL W/O EGFR Routine 09/16/2024 12:20 PM EDT COMPREHENSIVE METABOLIC PANEL Routine 09/16/2024 12:20 PM EDT documented in this encounter Results * (ABNORMAL) Differential (09/16/2024 12:20 PM EDT) Neutrophils Relative 84.2 Immature Granulocytes (%) 0.5 Immature Granulocytes Absolute 0.05 nRBC 0 Absolute Lymphocytes 0.8 Lymphocytes Relative 8.0 Eosinophils Relative 1.5 Basophils Relative 0.7 Monocytes Relative 5.1 Monocytes Absolute 0.5 RDW 21.4(A) 11.5 - 14.5 % Eosinophils Absolute 0.2 / L Basophils Absolute 0.1 / L MCHC 36.1 30 - 37 g/dL MPV 12.3(A) 7.5 - 11.5 fL Whole Blood Result [facility] Gerri Peterson MD LAB BLOOD ORDERABLES Final Resu lt * Glucose, random (09/16/2024 12:20 PM EDT) Glucose 97 60 - 200 mg/dL Plasma Result [facility] Gerri Peterson MD LAB BLOOD ORDERABLES Final Resu lt * (ABNORMAL) Hepatic function panel (09/16/2024 12:20 PM EDT) Alkaline Phosphatase 144 U/L ALT 40 U/L AST 76 U/L Total Bilirubin 19.8(A) 0.1 - 1.4 mg/dL Protein, Total 6.3 Albumin 3.4(A) 3.5 - 5.0 g/dL Blood Result [facility] Gerri Peterson MD LAB BLOOD ORDERABLES Final Resu lt * (ABNORMAL) Renal Function Panel w/o EGFR (09/16/2024 12:20 PM EDT) Creatinine 2.30 BUN 31(A) 4 - 21 mg/dL Potassium 3.3(A) 3.4 - 5.3 mmol/L Sodium 136(A) 137 - 147 mmol/L Chloride 110(A) 99 - 108 mmol/L Calcium 9.3 8.7 - 10.7 mg/dL Blood Result [facility] Gerri Peterson MD LAB BLOOD ORDERABLES Final Resu lt * Comprehensive metabolic panel (09/16/2024 12:20 PM EDT) CO2 15 13 - 22 mmol/L Plasma Result [facility] Gerri Peterson MD LAB BLOOD ORDERABLES Final Resu lt * (ABNORMAL) Protime-INR (09/16/2024 12:20 PM EDT) INR 1.89(A) 0.9 - 1.1 Protime 19.9(A) 10.0 - 13.8 seconds Plasma Result [facility] Gerri Peterson MD LAB BLOOD ORDERABLES Final Resu lt * (ABNORMAL) CBC (09/16/2024 12:20 PM EDT) Red Blood Cells: 2.52 Hemoglobin 9.1(A) 13.5 - 17.5 g/dL Hematocrit 25.8(A) 41 - 53 % MCV 102.4 82.0 - 108.0 fL WBC 9.9 10^3/mL Whole Blood Result [facility] Gerri Peterson MD LAB BLOOD ORDERABLES Final Resu lt * CBC and differential (09/16/2024 12:20 PM EDT) Neutrophils Absolute 8.4 / L Blood Result [facility] Gerri Peterson MD LAB BLOOD ORDERABLES Final Resu lt * Hepatic Function Panel (09/16/2024 12:20 PM EDT) A/G Ratio 1.2 Plasma Gerri Peterson MD LAB BLOOD ORDERABLES Final Resu lt * Renal Function Panel, Fasting (09/16/2024 12:20 PM EDT) EGFR 31 Anion Gap 14.3 <=30 mmol/L Plasma Gerri Peterson MD LAB BLOOD ORDERABLES Final Resu lt documented in this encounter Visit Diagnoses Not on filedocumented in this encounter Additional Health Concerns Infection Onset Date Last Indicated Resolved Time C. difficile 09/09/2024 09/09/2024 documented as of this encounter
--- OUTSIDE RECORDS SUMMARY | 2024-10-17 11:57 | XMS_ITS ---
Author Organization [facility] Address [facility] [place] [address] Care Team Providers Care Repairer Evaporator Name Role Phone Enedina Mcguire NP Primary Care Provider [phone] Transplant Episode Kidney Candidate [facility] ([place] [place]) - [facility] Evaluation began on 10/08/2024 Marked as Active on 10/08/2024 Kidney CoordinatorAnny Cote RN Phone: N/A Fax: N/A Email: N/A Scores Score Value Updated Exceptions/Reas ons CPRA Not available EPTS (Calc) 8 10/17/2024 Care Team Name Role Phone Fax Email Anny Cote RN Kidney Coordinator N/A N/A N/A Yovanny Curran MD Referring Physician [phone] N/A Events Pre-Transplant Referred: 10/07/2024 Evaluation began: 10/08/2024
--- OUTSIDE RECORDS SUMMARY | 2024-10-17 11:57 | XMS_ITS | Encounter Summary ---
Author Organization [facility] Address [address] [place] [address] Care Team Providers Care Tip Bander Name Role Phone Unavailable Primary Care Provider [...] release of HIV test results or diagnoses. [id number] Health Encounter Details Date Type Department Care Team (Late st Contact Info) Description 09/10/2024 Telephone [facility]plant at [address] [phone] Kaylin Willard MSW Social History Tobacco Use [...] Recorded In the past 12 months has [employer], gas, oil, or water company threatened to [...] any time in the past 12 [facility], were you homeless or living in [...] 12/05/2024 8:01 AM EDT Hospital Encounter [facility] ENDOSCOPY [address] [place] [address] Chris Orosco MD [address] [place] [phone] 12/05/2024 8:01 AM EDT - 12/05/2024 8:[address] [facility] ENDOSCOPY [address] [place] [address] Chris Orosco MD [address] [place] [phone] EGD Scheduled Procedures Name Priority Associated Diagnoses Date/Ti me EGD Cirrhosis of liver with ascites, unspecified hepatic cirrhosis type ([facility]-HCC) 12/05/2024 8:01 AM EDT documented as of this encounter Visit Diagnoses Not on filedocumented in this encounter Additional Health Concerns Infection Onset Date Last Indicated Resolved Time C. difficile 09/09/2024 09/09/2024 documented as of this encounter
--- OUTSIDE RECORDS SUMMARY | 2024-10-17 11:57 | XMS_ITS | Referral Summary ---
Author Organization [employer] Address [address] [place] [address] Care Team Providers Care Economic History Teacher Name Role Phone Unavailable Primary Care Provider Unavailabl e Social History Tobacco Use Types Packs/Day Years Used Date Smoking Tobacco: Never Assessed Sex and Gender Information Value Date Recorded Sex Assigned at Male 11/08/2021 8:27 PM CDT Legal Sex Male 8:27 PM CDT Gender Identity Male 11/08/2021 8:27 PM CDT Sexual Orientation Not on file Plan of Treatment Not on file
--- OUTSIDE RECORDS SUMMARY | 2024-10-17 11:57 | XMS_ITS | Encounter Summary ---
Author Organization [facility] Address [address] [place] [address] Care Team Providers Care Clay Pigeon Setter Name Role Phone Unavailable Primary Care Provider [...] release of HIV test results or diagnoses. [id number] Health Encounter Details Date Type Department Care Team (Late st Contact Info) Description 09/24/2024 Orders Only [facility] G[facility]ology at [place] [facility] [address] [place] [phone] Gerri Peterson MD [address] [place] [address] Cirrhosis of liver with ascites, [...] Recorded In the past 12 months has [employer], gas, oil, or water company threatened [...] Description 12/05/2024 8:01 AM EDT Hospital Encounter [facility] ENDOSCOPY [address] [place] [phone] Chris Orosco MD [address] [place] [phone] 12/05/2024 8:01 AM EDT - 12/05/2024 8:31 AM EDT Surgery [facility] ENDOSCOPY [address] [place] [phone] Chris Orosco MD [address] [place] [phone] EGD Scheduled Orders Name Type Priority Associated Diagnoses Orde r Schedule CBC Lab Routine Cirrhosis of liver with ascites, unspecified hepatic cirrhosis type (CMS-HCC) every 2 weeks for 12 Occurrences starting 09/24/2024 until 04/08/2025 Renal Function Panel w/EGFR Lab Routine Cirrhosis of liver with ascites, unspecified hepatic cirrhosis type (CMS-HCC) every 2 weeks for 12 Occurrences starting 09/24/2024 until 04/08/2025 Hepatic Function Panel Lab Routine Cirrhosis of liver with ascites, unspecified hepatic cirrhosis type (CMS-HCC) every 2 weeks for 12 Occurrences starting 09/24/2024 until 04/08/2025, 1 completed Body fluid cell count Lab Routine Cirrhosis of liver with ascites, unspecified hepatic cirrhosis type (CMS-HCC) every 2 weeks for 12 Occurrences starting 09/24/2024 until 09/24/2025, 1 completed Body Fluid Culture plus Stain Microbiology Routine Cirrhosis of liver with ascites, unspecified hepatic cirrhosis type (CMS-HCC) every 2 weeks for 12 Occurrences starting 09/24/2024 until 09/24/2025, 1 completed Scheduled Procedures Name Priority Associated Diagnoses Date/Ti me EGD Cirrhosis of liver with ascites, unspecified hepatic cirrhosis type (CMS-HCC) 12/05/2024 8:01 AM EDT documented as of this encounter Results * Body Fluid Culture plus Stain (10/10/2024 1:51 PM EDT) Gram Stain Result Cytospin Results: [facility] Gram Stain Result Polymorphonuclear Leukocytes Seen; [facility] Gram Stain Result No Organisms Seen; [facility] Culture Result No Growth After 5 Days [facility] Fluid ABDOMEN / Unknown 10/10/2024 1:51 PM EDT 10/10/2024 3:56 PM EDT Gerri Peterson MD MICROBIOLOGY - GENERAL ORDERABL ES Final Result Performing Organization Address City/[facility] Co de Phone Number [facility] [address] * (ABNORMAL) Body fluid cell count (10/10/2024 1:51 PM EDT) Color, Fluid Yellow(A) Colorless, Pale Yellow 10/10/2024 5:29 PM EDT HEALTH LAB Clarity, Fluid Clear 10/10/2024 5:29 PM EDT [facility] Neutrophil %, Fluid 9 % 10/10/2024 5:29 PM EDT [facility] Lymphocytes %, Fluid 13 % 10/10/2024 5:29 PM EDT [facility] Mesothelial %, Fluid 6 % 10/10/2024 5:29 PM EDT [facility] Macrophage %, Fluid 72 % 10/10/2024 5:29 PM EDT [facility] RBC, Fluid 2,662 /uL 10/10/2024 4:41 PM EDT [facility] Total Nucleated Cells, Fluid 89 /uL 10/10/2024 4:41 PM EDT [facility] Comment:Total Nucleated Cell s represent WBCs and other nucleated cells in the fluid such as lining cells. Ascitic Fluid ABDOMEN / Unknown 1:51 PM EDT 10/10/2024 3:56 PM EDT Gerri Peterosn MD BODY FLUIDS AND STOOLS ORDERABL ES Final Result Performing Organization Address City/[facility] Co de Phone Number [facility] [address] [place] [id number], [facility] * (ABNORMAL) Hepatic Function Panel (09/25/2024 11:55 AM EDT) Total Bilirubin 20.2(H) 0.0 - 1.5 mg/dL 09/25/2024 1:02 PM EDT [facility] Bilirubin, Direct 13.33(H) 0.00 - 0.40 mg/dL 09/25/2024 1:02 PM EDT [facility] AST 57(H) 13 - 39 U/L 09/25/2024 1:02 PM EDT [facility] ALT 29 7 - 52 U/L 09/25/2024 1:02 PM EDT [facility] Alkaline Phosphatase 171(H) 36 - 125 U/L 09/25/2024 1:02 PM EDT [facility] Total Protein 5.6(L) 6.4 - 8.9 g/dL 09/25/2024 1:02 PM EDT [facility] Albumin 3.5 3.5 - 5.7 g/dL 09/25/2024 1:02 PM EDT [facility] Bilirubin, Indirect 6.87(H) 0.00 - 1.10 mg/dL 09/25/2024 1:02 PM EDT [facility] Plasma 09/25/2024 11:5 5 AM EDT 09/25/2024 12:21 PM EDT us Gerri Peterson MD LAB BLOOD ORDERABLES Final Resu lt [facility] [address] [place] [address], [facility] documented in this encounter Visit Diagnoses Diagnosis Cirrhosis of liver with ascites, unspecified hepatic cirrhosis type (CMS-HCC)- Primary Cirrhosis of liver with ascites, unspecified hepatic cirrhosis type (CMS-HCC) documented in this encounter Additional Health Concerns Infection Onset Date Last Indicated Resolved Time C. difficile 09/09/2024 09/09/2024 documented as of this encounter
--- OUTSIDE RECORDS SUMMARY | 2024-10-17 11:57 | XMS_ITS | Encounter Summary ---
Author Organization [employer] Address [address] [place] [address] Care Team Providers Care Network Desktop Support Specialist Name Role Phone Unavailable Primary Care Provider Unavailabl e Encounter Details Date Type Department Care Team (Late st Contact Info) Description 06/03/2018 Transcribed Document [facility] [place] Family Medicine [address] [place] [address] ProviderEbenezer MD [address] [place] [address] Social History Tobacco Use Types [...] Conversion Note - Ebenezer ProviderMD - 06/03/2018 12:08 PM NETWORK DESKTOP SUPPORT SPECIALIST ED Assessment Entered On: 06/03/2018 14:51 EST Performed On: 06/03/2018 13:50 EST by Lizeth Almeida, [employer] Quick Look Assessment Level of Consciousness : Alert Affect/Behavior : Calm, Cooperative Orientation : Oriented x 4 Skin Color : Other: [place] Skin Temperature : Warm Skin Description : Dry Lizeth Almeida, RN - 06/03/2018 14:50 EST ED General-Functional Assess Communication Barrier : None Primary Language : Irish Any Spiritual/Cultural Needs or Requests : No Currently in Unsafe Situation : No Lizeth Almeida, RN - 06/03/2018 14:50 EST Social Habits Smoking Status : 10 or more cigarettes (1/2 pack or more)/day in last 30 days Smokeless Tobacco Status : Never Desires Tobacco Cessation Medication : No Reason for No Tobacco Cessation Medication : Refuses FDA approved medications Desires Tobacco Cessation Calc : 1 Lizeth Almeida, RN - 06/03/2018 14:50 EST Social History (As Of: 06/03/2018 14:51:22 EST) Tobacco: 10 or more cigarettes (1/2 pack or more)/day in last 30 days Smoking Status. (Last Updated: 06/03/2018 12:18:48 EST by KANU VELEZ RN) Integumentary Assessment Integumentary Assessment WDL : WDL with exceptions Integumentary Assessment Comment : Pt with laceration to right pointer and left middle finger. Still oozing blood. Lizeth Almeida, RN - 06/03/2018 14:50 EST Electronically signed by [facility] Conversion Supervisor Alteration Workroom Cerner at 08/29/2022 6:34 PM CDT documented in this encounter Plan of Treatment Not on file documented as of this encounter Visit Diagnoses Not on filedocumented in this encounter
--- OUTSIDE RECORDS SUMMARY | 2024-10-17 11:57 | XMS_ITS | Encounter Summary ---
Author Organization [facility] Address [address] [place] [address] Care Team Providers Care Coal Gasification Technician Name Role Phone Unavailable Primary Care [...] release of HIV test results or diagnoses. [id number] Reason for Referral * (Routine) - New Request Specialty Diagnoses / Procedures Referred By Contac t Referred To Contact Radiology Diagnoses Cirrhosis of liver with ascites, unspecified hepatic cirrhosis type (CMS-HCC) Procedures AMB Referral to Interventional Radiology (BODY IR) Gerri Peterson MD [address] [place] [address] Phone: tel: fax: Referral ID Status Reason Start Date Expiration Date V isits Requested Visits Authorized [id number] New Request 09/23/2024 03/22/2025 10 10 Reason for Visit * Reason Comments Orders Order Clarification Request Encounter Details Date Type Department Care Team (Late st Contact Info) Description 09/22/2024 Telephone [facility] Gastroenterology at [address] [phone] Gerri Peterson MD [address] [place] [address] Orders (Order Clarification Request ) Social History Tobacco Use Types Packs/Day [...] the past 12 months has th e [employer], [employer], oil, or water datatracker threatened to shut off services in your [...] living in a half-way (including now)? No 09/05/2024 Yearly Questionnaire Answer [...] Telephone Encounter - Ingrid Galvez RN - 09/23/2024 5:26 PM EDT RN faxed order to [phone] * Telephone Encounter - Alondra Reese MA - 09/23/2024 1:35 PM EDT Pt requesting a Standing order for parenthesis to have done 2x a week. * Telephone Encounter - Tamar Blackwood - 09/22/2024 11:22 AM EDT Madina from [facility] asked to clarify paracentesis frequency. Julien had 9 liters removed last week, 7.5 today and asked to get scheduled this Sunday. Madina can be reached at [phone] documented in this encounter Plan of Treatment Upcoming Encounters Date Type Department Care Team (Late st Contact Info) Description 12/05/2024 8:01 AM EDT Hospital Encounter [facility] ENDOSCOPY [address] [place] [address] Chris Orosco MD [address] [place] [address] 12/05/2024 8:01 AM EDT - 12/05/2024 8:31 AM EDT Surgery [facility] ENDOSCOPY [address] [place] [address] Chris Orosco MD [address] [place] [address] EGD Scheduled Orders Name Type Priority Associated Diagnoses Order Schedule AMB Referral to Interventional Radiology (BODY IR) Interventional Radiology Routine Cirrhosis of liver with ascites, unspecified hepatic cirrhosis type (CMS-HCC) Expected: 09/23/2024, Expires: 09/23/2025 Scheduled Procedures Name Priority Associated Diagnoses Date/Ti [...]
--- OUTSIDE RECORDS SUMMARY | 2024-10-17 11:57 | XMS_ITS | Clinical Summary ---
Author Organization [employer] Address [address] [place] [address] Care Team Providers Care Piece Jobber Name Role Phone Unavailable Primary Care Provider [...]
--- OUTSIDE RECORDS SUMMARY | 2024-10-17 11:57 | XMS_ITS | Encounter Summary ---
Author Organization [facility] Address [facility] [place] [address] Care Team Providers Care Marketing Traffic Coordinator Name Role Phone Unavailable Primary Care [...] release of HIV test results or diagnoses. [id number] Reason for Visit * Reason Comments Orders Order Clarification Request Encounter Details Date Type Department Care Team (Late st Contact Info) Description 09/23/2024 Telephone [facility] G[facility] [address] [place] [phone] Gerri Peterson MD [address] [place] [address] Orders (Order Clarification Request/) Social History Tobacco Use Types Packs/Day Years Used Date Smoking Tobacco: Former Cigarettes Smokeless Tobacco: Current Alcohol Use Standard Drinks/Week Comments Yes 0 (1 standard drink = 0.6 oz pure alcohol) History of alcohol abuse, reports no use in 3 week- typically endorses use as 4 glasses of wine a days Utilities Answer Date Recorded In the past 12 months has [employer], gas, oil, or water company threatened to [...] living in a assisted (including now)? No 09/05/2024 Yearly Questionnaire Answer [...] Telephone Encounter - Ingrid Galvez RN - 09/24/2024 11:48 AM EDT RN returned called and staff have no idea what lab orders are being requested. I was transferred tolab staff ict account manager. No answer. Message left to please indicate the lab orders that they are in need of and we will fax the orders. RN provided direct nurse line as well as main number for call back with this information. * Telephone Encounter - Carina Quezada - 09/24/2024 9:48 AM EDT Madina with [facility] called to follow-up on faxed received. Madina needing clarification on fax cover sheet note she received regarding clarifying lab protocol. Madina requesting osiel back to clarify at [phone] (ask for Madina) * Telephone Encounter - Alondra Reese MA - 09/23/2024 1:36 PM EDT Requesting bloodwork orders be placed and done biweekly. documented in this encounter Plan of Treatment Upcoming Encounters Date Type Department Care Team (Late st Contact Info) Description 12/05/2024 8:01 AM EDT Hospital Encounter [facility] ENDOSCOPY [address] [place], [place] [phone] Chris Orosco MD [address] [place] [phone] 12/05/2024 8:01 AM EDT - 12/05/2024 8:31 AM EDT Surgery [facility] ENDOSCOPY [address] [place] [phone] Chris Orosco MD [address] [place] [phone] EGD Scheduled Procedures Name Priority Associated Diagnoses Date/Ti me EGD Cirrhosis of liver with ascites, unspecified hepatic cirrhosis type ([facility]) 12/05/2024 8:01 AM EDT documented as of this encounter Visit Diagnoses Not on filedocumented in this encounter Additional Health Concerns Infection Onset Date Last Indicated Resolved Time C. difficile 09/09/2024 09/09/2024 documented as of this encounter
--- OUTSIDE RECORDS SUMMARY | 2024-10-17 11:57 | XMS_ITS | Encounter Summary ---
Author Organization [employer] Address [address] [place] [address] Care Team Providers Care In Room Dining Server Name Role Phone Unavailable Primary Care Provider Unavailabl e Encounter Details Date Type Department Care Team (Late st Contact Info) Description 06/03/2018 Transcribed Document [facility] [address] [place] [address] ProviderEbenezer MD [address] [place] [address] Social History Tobacco Use Types [...] Conversion Note - Historical ProviderMD - 06/03/2018 3:04 PM DYE COLORIST DYER [address] [place] [address] PERSON INFORMATION Name JULIEN ZELAYA Age 33 Years 1985 Sex Male Language Monegasque PCP SALLY EVERETT (REF) T Marital Status Single Med Service Emergency Medicine Acct# Arrival 06/03/2018 12:08:00 Visit Reason Finger laceration; CUT FINGERS Acuity 3 - Urgent LOS 000 02:56 Depart Date: 06/03/18 03:04 PM Address: [address] [place] [phone] Comment: PROVIDER INFORMATION Provider Role Assigned Unassigned Lizeth Almeida, DRIVEWAY SEALER Nurse 06/03/2018 12:39:09 DOMINIQUE BREWER PA-C ED Physician 06/03/2018 12:51:52 DIAGNOSIS Laceration of finger of left hand; Laceration of finger of right hand PHYS DOC NOTES VITALS INFORMATION Vital Sign Triage Latest Temp Source Tympanic Tympanic Temp Mode Fahrenheit Fahrenheit Temp Fahrenheit 97.8 Deg F 97.8 Deg F Temp Celsius 02 Sat 99 % 99 % Respiratory Rate 18 Breaths/Min 18 Breaths/Min Peripheral Pulse Rate 78 bpm 78 bpm Apical Heart Rate Blood Pressure 180 mmHg / 114 mmHg 180 mmHg / 114 mmHg Comment: MEDICAL INFORMATION Allergy Info: No Known Medication Allergies Medications: Prescription Display cephalexin (Keflex 500 mg oral capsule) 1 Cap, Oral, Cap, BID, X 5 Day(s), # 10 Cap, 0 Refill(s) Home Meds Display hydrochlorothiazide-losartan (hydrochlorothiazide-losartan 12.5 mg-100 mg oral tablet) 1 Tab, Oral, Tab, Daily, # 30 Tab, 0 Refill(s) Comment: DISCHARGE INFORMATION Discharge Disposition: Home Discharge Location: PATIENT EDUCATION INFORMATION Instructions: Laceration Care, Adult Follow up: With: Address: When: Return to Emergency Department Within 2 weeks Comments: Return for suture/staple removal With: Address: When: SALLY (REF) MARGUERITE PURI # [address] [place] [address] [place], [place] [id number] [employer] ([employer] Within 2 to 3 days Comment: Electronically signed by Luis Eduardo Ochoa Conversion Telemarketing Fundraiser Cerner at 08/29/2022 6:45 PM CDT documented in this encounter Plan of Treatment Not on file documented as of this encounter Visit Diagnoses Not on filedocumented in this encounter
--- OUTSIDE RECORDS SUMMARY | 2024-10-17 11:57 | XMS_ITS | Encounter Summary ---
Author Organization [facility] Address [address] [place] [address] Care Team Providers Care Learning Services Coordinator Name Role Phone Unavailable Primary Care [...] release of HIV test results or diagnoses. [id number] Health Encounter Details Date Type Department Care Team (Late st Contact Info) Description 09/17/[address] [facility] Liver Transplant at [address] [phone] Kaylin Willard MSW Social History Tobacco Use [...] Recorded In the past 12 months has [employer], gas, oil, or water company threatened to [...] Description 12/05/2024 8:01 AM EDT Hospital Encounter [facility] ENDOSCOPY [address] [place] [address] Chris Orosco MD [address] [place] [phone] 12/05/2024 8:01 AM EDT - 12/05/2024 8:31 AM EDT Surgery [facility] ENDOSCOPY [address] [place] [address] Chris Orosco MD [address] [place] [phone] EGD Scheduled Procedures Name Priority Associated Diagnoses Date/Ti me EGD Cirrhosis of liver with ascites, unspecified hepatic cirrhosis type ([facility]) 12/05/2024 8:01 AM EDT documented as of this encounter Visit Diagnoses Not on filedocumented in this encounter Additional Health Concerns Infection Onset Date Last Indicated Resolved Time C. difficile 09/09/2024 09/09/2024 documented as of this encounter
--- OUTSIDE RECORDS SUMMARY | 2024-10-17 11:58 | XMS_ITS ---
Author Organization [facility] Address [facility] [place] [address] Care Team Providers Care Firmware Test Engineer Name Role Phone Enedina Mcguire NP Primary Care Provider [phone] Transplant Episode Liver Candidate [facility] ([place], [place]) [facility] Evaluation began on 10/07/2024 Marked as Active on 10/07/2024 Liver CoordinatorMary Butler RN Phone: N/A Fax: N/A Email: N/A Scores Score Value Updated Expires Exceptions/Franklin sons CPRA Not available UNOS MELD Not available MELD (Calc) 34 10/17/2024 [place] Organ Diagnosis Organ Primary Contributory Liver Alcohol-Associated C irrhosis Without Acute Alcohol-Associated Hepatitis Infection History Noted Survival Infection Treatment Organism Resolved 09/09/2024 C. difficile diarrhea Care Team Name Role Phone Fax Email Mary Butler RN Liver Coordinator N/A N/A N/A Chris Orosco MD Referring Physician [phone] N/A NUBIA Barros Txp Frame Trimmer N/A N/A N/A Mary Butler RN Txp Pre Coordinator N/A N/A N/A Events Pre-Transplant Referred: 08/13/2024 Evaluation began: 10/07/2024 Committee: 10/14/2024
[2024-10-17 14:57] LABS: Source, Body Fld. Paracentesis Fluid
[2024-10-17 14:59] LABS: Appearance,Body Fld. Slightly cloudy; Mononuclear WBCs,Body Fluid 94 %; Polynuclear WBC,Body Fluid 6 %; RBC,Body Fluid 4000 cells/uL (< 10 X 10^3); TNC,Body Fluid 128 cells/uL (< 1000); Volume,Body Fld. 4350 mL
--- NOTE | 2024-10-17 16:08 | PC.NURSE ---
PT DID NOT NEED ALBUMIN REPLACEMENT PER THE MD ORDER.
== END 2024-10-17 12:40 | disposition home or self-care (01) ==
LOC: RAD 11:48 → INF 13:07
PROVIDERS: PCP Nurse Practitioner Family; Visit Provider Student in an Organized Health Care Education/Training Program
DX: R18.8 Other ascites (principal); K74.60 Unspecified cirrhosis of liver
CPT/HCPCS: 49083; 89051

== ENCOUNTER 2024-10-21 07:41 | Outpatient (CLI) | payer OTHER, SELFPAY ==
--- OUTSIDE RECORDS SUMMARY | 2024-08-25 14:20 | XMS_ITS | Encounter Summary ---
Author Organization Healthcare Address [address] [place] [address] Care Team Providers Care Biological Plant Operator Name Role Phone Regina, Ljmelanie Nova APRN Unavailable [phone] Enedina Mcguire APRN Primary Care Provider + Reason for Visit * Reason Comments Follow-up Encounter Details Date Type Department Care Team ([facility] Contact Info) Description 08/25/2024 2:20 PM EDT Office Visit Professional [facility] Nephrology, Bone & Mineral Metabolism [address], [address] [place] [address] Yovanny Bob MD [address] [place] [address] NADIYA (acute kidney injury) (CMS/HCC) [...] answer 07/14/2024 How often do you attend [facility] or catholic services? Patient unable to answer 07/14/2024 Do you belong to any clubs o r organizations such as mandaen groups, unions, fraternal or athletic groups, or [...] Recorded Patient Health Questionnaire-2 Score 0 12/27/2023 [facility] of Occupat ional Health - Occupational [...] place to sleep or slept in a senior care (including now)? No 11/19/2023 Housing Stability Vital Sign Answer Bob e Recorded In the last 12 months, was t here a time when you were not able to pay the mortgage or rent on time? No 07/14/2024 In the past 12 months, how m any times have you moved where you were living? 1 07/14/2024 At any time in the past [address] [facility], were you homeless or living in a senior care (including now)? 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-LABORER HIDE HOUSE) to steady your nerves or to get [...] NADIYA. Most recently discharged on 08/19 from [facility]. Cr at time of discharge was 2.6. Cr most recently at [facility] was 2.8. Off topiramate due to acidosis. [...] impressions, importance of compliance with treatment, and senior living nature of condition. Education provided was verbal [...] Expiration Date: 02/24/[address] patient in [facility]: Immediate [1] [1] Past Medical History: Diagnosis [...] Description 12/01/2024 2:20 PM EDT Office Visit [facility] Nephrology, Bone & Mineral Metabolism [address] , [address] [place] [address] Yovanny Curran MD [address] [place] [address] 01/08/2025 3:20 PM EDT Office Visit [facility] [address] , [address] [place] [address] Vincent Braga MD [address] [facility] [address] [place] [phone] Scheduled Orders Name Type Priority Associated Diagnoses [...] documented as of this encounter Care Teams Biological Plant Operator Relationship Specialty Start Date End Date Enedina Mcguire APRN [address] [place] [address] PCP - General 12/04/22 Lj Tapia APRN [address] [place] [address] Referring Physician Gastroenterology 07/18/22 documented as of this encounter
--- OUTSIDE RECORDS SUMMARY | 2024-09-02 14:40 | XMS_ITS | Encounter Summary ---
Author Organization [facility] Address [facility] [place] [address] Care Team Providers Care Construction Technician Name Role Phone Unavailable Primary Care Provider [...] release of HIV test results or diagnoses. [id number] Reason for Referral * (Routine) - New Request Specialty Diagnoses / Procedures Referred By Contac t Referred To Contact Radiology Diagnoses Cirrhosis of liver with ascites, unspecified hepatic cirrhosis type (CMS-HCC) Procedures AMB Referral to Interventional Radiology (BODY IR) Gerri Peterson MD [facility] [place] [address] Phone: tel: fax: Referral ID Status Reason Start Date Expiration Date V isits Requested Visits Authorized [id number] New Request 09/02/2024 03/01/2025 11 11 Reason for Visit * Reason Comments Follow-up Bloating in PT stoma ch * Hospital Discharge Follow-Up (Routine) - New Request Specialty Diagnoses / Procedures Referred By Contac t Referred To Contact Hepatology Feliciano Freeman MD [address] [place] [address] Phone: tel: fax: Referral ID Status Reason Start Date Expiration Date V isits Requested Visits Authorized [id number] New Request 07/29/2024 01/25/2025 1 1 Encounter Details Date Type Department Care Team (Latest Contact Info) Description 09/02/2024 2:40 PM EDT Office Visit [facility] G[facility]ology at [facility] [address] [facility] [address] [place] [address] Gerri Peterson MD [address] [place] [address] Cirrhosis of liver with ascites, [...] as 4 glasses of wine a days [email or web address] Answer Date Recorded In the past 12 months has th [facility], gas, oil, or water [employer] threatened to shut off services in your [...] time in the past 12 m [facility], were you homeless or living in a jail (including now)? No 09/05/2024 Yearly Questionnaire Answer [...] Description 12/05/2024 8:01 AM EDT Hospital Encounter [facility] ENDOSCOPY [address] [place] [phone] Chris Orosco MD [address] [place] [phone] 12/05/2024 8:01 AM EDT - 12/05/2024 8:31 AM EDT Surgery [facility] ENDOSCOPY [address] [place] [phone] Chris Orosco MD [address] [place] [phone] EGD Scheduled Orders Name Type Priority Associated [...] 09/02/2024 until 03/17/2025, 1 completed US Duplex Tul-[id number] Comp Imaging STAT Cirrhosis of liver with [...] of this encounter Results * (ABNORMAL) CBC (09/25/2024 11:55 AM EDT) WBC 8.2 3.8 - 10.8 10E3/uL 09/25/2024 1:43 PM EDT [facility] RBC 2.88(L) 4.20 - 5.80 10E6/uL 09/25/2024 1:43 PM EDT [facility] Hemoglobin 10.8(L) 13.2 - 17.1 g/dL 09/25/2024 1:43 PM EDT [facility] Hematocrit 29.8(L) 38.5 - 50.0 % 09/25/2024 1:43 PM EDT [facility] MCV 103.5(H) 80.0 - 100.0 fL 09/25/2024 1:43 PM EDT [facility] MCH 37.6(H) 27.0 - 33.0 pg 09/25/2024 1:43 PM EDT [facility] MCHC 36.3(H) 32.0 - 36.0 g/dL 09/25/2024 1:43 PM EDT [facility] RDW 20.1(H) 11.0 - 15.0 % 09/25/2024 1:43 PM EDT [facility] Platelets 62(L) 140 - 400 10E3/uL 09/25/2024 1:43 PM EDT [facility] Comment: _Platelets Appear Decreased Slide Reviewed for PLT Clumps. None Seen. Specimen checked for clots. None detected. MPV 8.3 7.5 - 11.5 fL 09/25/2024 1:43 PM EDT [facility] Whole Blood 09/25/2024 11:5 5 AM EDT 09/25/2024 12:20 PM EDT us Gerri Peterson MD LAB BLOOD ORDERABLES Final Resu lt [facility] [address] [place] [address], [facility] * (ABNORMAL) Comprehensive metabolic panel (09/25/2024 11:55 AM EDT) Sodium 133 133 - 146 mmol/L 09/25/2024 12:50 PM EDT [facility] Potassium 4.1 3.5 - 5.3 mmol/L 09/25/2024 12:50 PM EDT [facility] Chloride 103 98 - 110 mmol/L 09/25/2024 12:50 PM EDT [facility] CO2 18(L) 21 - 33 mmol/L 09/25/2024 12:50 PM EDT [facility] Anion Gap 12 3 - 16 mmol/L 09/25/2024 12:50 PM EDT [facility] BUN 42(H) 7 - 25 mg/dL 09/25/2024 12:50 PM EDT [facility] Creatinine 3.13(H) 0.60 - 1.30 mg/dL 09/25/2024 12:50 PM EDT [facility] Glucose 106(H) 70 - 100 mg/dL 09/25/2024 12:50 PM EDT [facility] Calcium 9.3 8.6 - 10.3 mg/dL 09/25/2024 12:50 PM EDT [facility] Total Bilirubin 20.2(H) 0.0 - 1.5 mg/dL 09/25/2024 1:02 PM EDT [facility] AST 57(H) 13 - 39 U/L 09/25/2024 1:02 PM EDT [facility] ALT 29 7 - 52 U/L 09/25/2024 1:02 PM EDT [facility] Alkaline Phosphatase 171(H) 36 - 125 U/L 09/25/2024 1:02 PM EDT [facility] Total Protein 5.6(L) 6.4 - 8.9 g/dL 09/25/2024 1:02 PM EDT [facility] Albumin 3.5 3.5 - 5.7 g/dL 09/25/2024 1:02 PM EDT [facility] Osmolality, Calculated 287 278 - 305 mOsm/kg 09/25/2024 12:50 PM EDT [facility] EGFR 25 09/25/2024 12:50 PM EDT [facility] Comment:As of 2021, the estimated [...] LAB BLOOD ORDERABLES Final Resu lt [facility] [address] [address], [facility] * (ABNORMAL) Comprehensive metabolic panel (09/02/2024 5:00 PM EDT) Sodium 136 133 - 146 mmol/L 09/02/2024 8:57 PM EDT [facility] Potassium 2.7(LL) 3.5 - 5.3 mmol/L 09/02/2024 8:57 PM EDT [facility] Chloride 101 98 - 110 mmol/L 09/02/2024 8:57 PM EDT [facility] CO2 21 21 - 33 mmol/L 09/02/2024 8:57 PM EDT [facility] Anion Gap 14 3 - 16 mmol/L 09/02/2024 8:57 PM EDT [facility] BUN 39(H) 7 - 25 mg/dL 09/02/2024 8:57 PM EDT [facility] Creatinine 2.93(H) 0.60 - 1.30 mg/dL 09/02/2024 8:57 PM EDT [facility] Glucose 137(H) 70 - 100 mg/dL 09/02/2024 8:57 PM EDT [facility] Calcium 8.5(L) 8.6 - 10.3 mg/dL 09/02/2024 8:57 PM EDT [facility] Total Bilirubin 35.4(H) 0.0 - 1.5 mg/dL 09/02/2024 8:57 PM EDT [facility] AST 68(H) 13 - 39 U/L 09/02/2024 8:57 PM EDT [facility] ALT 43 7 - 52 U/L 09/02/2024 8:57 PM EDT [facility] Alkaline Phosphatase 140(H) 36 - 125 U/L 09/02/2024 8:57 PM EDT [facility] Total Protein 5.3(L) 6.4 - 8.9 g/dL 09/02/2024 8:57 PM EDT [facility] Albumin 3.3(L) 3.5 - 5.7 g/dL 09/02/2024 8:57 PM EDT [facility] Osmolality, Calculated 294 278 - 305 mOsm/kg 09/02/2024 8:57 PM EDT [facility] EGFR 27 09/02/2024 8:57 PM EDT [facility] Comment:As of 2021, the estimated [...] LAB BLOOD ORDERABLES Final Resu lt [facility] [address] [place] [address], [facility] * (ABNORMAL) CBC (09/02/2024 5:00 PM EDT) WBC 10.4 3.8 - 10.8 10E3/uL 09/02/2024 7:42 PM EDT [facility] RBC 3.13(L) 4.20 - 5.80 10E6/uL 09/02/2024 7:42 PM EDT [facility] Hemoglobin 11.1(L) 13.2 - 17.1 g/dL 09/02/2024 7:42 PM EDT [facility] Hematocrit 30.7(L) 38.5 - 50.0 % 09/02/2024 7:42 PM EDT [facility] MCV 97.9 80.0 - 100.0 fL 09/02/2024 7:42 PM EDT [facility] MCH 35.3(H) 27.0 - 33.0 pg 09/02/2024 7:42 PM EDT [facility] MCHC 36.1(H) 32.0 - 36.0 g/dL 09/02/2024 7:42 PM EDT [facility] RDW 22.7(H) 11.0 - 15.0 % 09/02/2024 7:42 PM EDT [facility] Platelets 73(L) 140 - 400 10E3/uL 09/02/2024 7:42 PM EDT [facility] MPV 9.4 7.5 - 11.5 fL 09/02/2024 7:42 PM EDT [facility] Whole Blood 09/02/2024 5:00 PM EDT 09/02/2024 7:34 PM EDT us Gerri Peterson MD LAB BLOOD ORDERABLES Final Resu lt [facility] [address] [place] [address], [facility] documented in this encounter Visit Diagnoses Diagnosis Cirrhosis of liver with ascites, unspecified hepatic cirrhosis type (CMS-HCC)- Primary Alcoholic cirrhosis of liver without ascites (CMS-HCC) Cirrhosis of liver with ascites, unspecified hepatic cirrhosis type (CMS-HCC) documented in this encounter
--- OUTSIDE RECORDS SUMMARY | 2024-09-02 16:00 | XMS_ITS | Encounter Summary ---
Author Organization [facility] Address [address] [place] [address] Care Team Providers Care Orthotist Prosthetist Name Role Phone Unavailable Primary Care Provider [...] release of HIV test results or diagnoses. [id number] Reason for Visit * Reason Comments Labs Only * Auth/Cert (Routine) Specialty Diagnoses / Procedures Referred By Shane hernadez Referred To Contact Emergency Medicine [facility] Emergency Department [address] [place] [phone] Phone: tel: fax: Referral ID Status Reason Start Date Expiration Date Visits Re quested Visits Authorized [id number] 1 1 Encounter Details Date Type Department Care Team (Late st Contact Info) Description 09/02/2024 4:00 PM EDT Specimen [facility] Outreach Lab [address] [facility] [address] [place] [address] Doron Botello MD [address] [place] [address] Alcoholic cirrhosis of liver without ascites (CMS-HCC); Cirrhosis of liver with ascites, unspecified hepatic cirrhosis type (CMS-HCC) Social History Tobacco Use Types Packs/Day [...] the past 12 months has th e [employer], gas, oil, or water company threatened to [...] more drinks on one occasion? Never 08/13/2024 PHQ-2 Answer Date Recorded PHQ-2 Total Score [...] any time in the past 12 m [facility], were you homeless or living in a assisted (including now)? No 08/12/2024 Yearly Questionnaire Answer Date Record ed Do [...] on file documented as of this encounter Plan of Treatment Upcoming Encounters Date Type Department Care Team (Late st Contact Info) Description 12/05/2024 8:01 AM EDT Hospital Encounter [facility] ENDOSCOPY [address] [place] [phone] Chris Orosco MD [address] [place] [phone] 12/05/2024 8:01 AM EDT - 12/05/2024 8:31 AM EDT Surgery [facility] ENDOSCOPY [address] [place] [phone] Chris Orosco MD [address] [place] [phone] EGD Scheduled Procedures Name Priority Associated Diagnoses Date/Ti me EGD Cirrhosis of liver with ascites, unspecified hepatic cirrhosis type (CMS-HCC) 12/05/2024 8:01 AM EDT documented as of this encounter Procedures Procedure Name Priority Date/Time Associated Diagnosis Comments PHOSPHATIDYLETHANOL CONFIRMATION, B Routine 09/02/2024 5:00 PM EDT Alcoholic cirrhosis of liver without ascites (CMS-HCC) HEPATIC FUNCTION PANEL Routine 5:00 PM EDT Alcoholic cirrhosis of liver without ascites (CMS-HCC) PROTIME-INR Routine 09/02/2024 5:00 PM EDT Alcoholic cirrhosis of liver without ascites (CMS-HCC) CBC Routine 09/02/2024 5:00 PM EDT Cirrhosis of liver with ascites, unspecified hepatic cirrhosis type (CMS-HCC) COMPREHENSIVE METABOLIC PANEL Routine 09/02/2024 5:00 PM EDT Cirrhosis of liver with ascites, unspecified hepatic cirrhosis type (CMS-HCC) documented in this encounter Results * (ABNORMAL) Comprehensive metabolic panel (09/02/2024 5:00 PM EDT) Sodium 136 133 - 146 mmol/L 09/02/2024 8:57 PM EDT [facility] Potassium 2.7(LL) 3.5 - 5.3 mmol/L 09/02/2024 8:57 PM EDT [facility] Chloride 101 98 - 110 mmol/L 09/02/2024 8:57 PM EDT [facility] CO2 21 21 - 33 mmol/L 09/02/2024 8:57 PM EDT [facility] Anion Gap 14 3 - 16 mmol/L 09/02/2024 8:57 PM EDT [facility] BUN 39(H) 7 - 25 mg/dL 09/02/2024 8:57 PM EDT [facility] Creatinine 2.93(H) 0.60 - 1.30 mg/dL 09/02/2024 8:57 PM EDT [facility] Glucose 137(H) 70 - 100 mg/dL 09/02/2024 8:57 PM EDT [facility] Calcium 8.5(L) 8.6 - 10.3 mg/dL 09/02/2024 8:57 PM EDT [facility] Total Bilirubin 35.4(H) 0.0 - 1.5 mg/dL 09/02/2024 8:57 PM EDT [facility] AST 68(H) 13 - 39 U/L 09/02/2024 8:57 PM EDT [facility] ALT 43 7 - 52 U/L 09/02/2024 8:57 PM EDT [facility] Alkaline Phosphatase 140(H) 36 - 125 U/L 09/02/2024 8:57 PM EDT [facility] Total Protein 5.3(L) 6.4 - 8.9 g/dL 09/02/2024 8:57 PM EDT [facility] Albumin 3.3(L) 3.5 - 5.7 g/dL 09/02/2024 8:57 PM EDT [facility] Osmolality, Calculated 294 278 - 305 mOsm/kg 09/02/2024 8:57 PM EDT [facility] EGFR 27 09/02/2024 8:57 PM EDT [facility] Comment:As of 2021, the estimated [...] MD LAB BLOOD ORDERABLES Final Resu lt [facility] [address] * (ABNORMAL) CBC (09/02/2024 5:00 PM EDT) WBC 10.4 3.8 - 10.8 10E3/uL 09/02/2024 7:42 PM EDT [facility] RBC 3.13(L) 4.20 - 5.80 10E6/uL 09/02/2024 7:42 PM EDT [facility] Hemoglobin 11.1(L) 13.2 - 17.1 g/dL 09/02/2024 7:42 PM EDT [facility] Hematocrit 30.7(L) 38.5 - 50.0 % 09/02/2024 7:42 PM EDT [facility] MCV 97.9 80.0 - 100.0 fL 09/02/2024 7:42 PM EDT [facility] MCH 35.3(H) 27.0 - 33.0 pg 09/02/2024 7:42 PM EDT [facility] MCHC 36.1(H) 32.0 - 36.0 g/dL 09/02/2024 7:42 PM EDT [facility] RDW 22.7(H) 11.0 - 15.0 % 09/02/2024 7:42 PM EDT [facility] Platelets 73(L) 140 - 400 10E3/uL 09/02/2024 7:42 PM EDT [facility] MPV 9.4 7.5 - 11.5 fL 09/02/2024 7:42 PM EDT [facility] Whole Blood 09/02/2024 5:00 PM EDT 09/02/2024 7:34 PM EDT us Gerri Peterson MD LAB BLOOD ORDERABLES Final Resu lt [facility] [address] * Phosphatidylethanol Confirmation, B (09/02/2024 5:00 PM EDT) PETH 16:0/18.1 (POPETH) <10 Cutoff: 10 ng/mL 09/05/2024 3:18 AM EDT [facility] Comment: Phosphatidylethanol (PEth) homologues result interpretation [...] several days a week) (Reference: Zhanna Grayson Bhavin Phillips 2018 J. Forensic Sci) PETH 16:0/18.2 (PLPETH) <10 Cutoff: 10 ng/mL 09/05/2024 3:18 AM EDT [facility] Comment: PEth 16:0/18:2 (PLPEth) Reference ranges are not well established PEth Interpretation Negative. 09/05 3:18 AM EDT [facility] Comment: ADDITIONAL INFORMATION This report is intended for use in clinical monitoring and management of patients. It is not intended for use in employment-related testing. This test was developed and its performance characteristics determined by [facility] in a manner consistent with CLIA requirements. This test has not been cleared or approved by the U.S. Food and Drug Administration. Test Performed by: [facility] [place] [address] District Wildlife Manager: Kathy Ortiz Ph.D.; CLIA# [id number] Whole Blood 09/02/2024 5:00 PM EDT 09/05/2024 3:18 AM EDT Doron Botello MD LAB BLOOD ORDERABLES Final Result [facility] [address] * (ABNORMAL) Protime-INR (09/02/2024 5:00 PM EDT) Protime 22.2(H) 12.1 - 15.1 seconds 09/02/2024 7:54 PM EDT [facility] INR 1.9(H) 0.9 - 1.1 09/02/2024 7:54 PM EDT [facility] Comment: RECOMMENDED THERAPEUTIC RANGES USING INR : Stable oral anticoagulant therapy: 2.0 - 3.0 Mechanical prosthetic heart valve: 2.5 - 3.5 Recurrent acute myocardial infarction: 2.5 - 3.5 Plasma 09/02/2024 5:00 PM EDT 09/02/2024 6:59 PM EDT Doron Botello MD LAB BLOOD ORDERABLES Final Result [facility] [address] * (ABNORMAL) Hepatic Function Panel (09/02/2024 5:00 PM EDT) Total Bilirubin 35.4(H) 0.0 - 1.5 mg/dL 09/02/2024 8:57 PM EDT [facility] Bilirubin, Direct 20.97(H) 0.00 - 0.40 mg/dL 09/02/2024 8:57 PM EDT [facility] AST 68(H) 13 - 39 U/L 09/02/2024 8:57 PM EDT [facility] ALT 43 7 - 52 U/L 09/02/2024 8:57 PM EDT [facility] Alkaline Phosphatase 140(H) 36 - 125 U/L 09/02/2024 8:57 PM EDT [facility] Total Protein 5.3(L) 6.4 - 8.9 g/dL 09/02/2024 8:57 PM EDT [facility] Albumin 3.3(L) 3.5 - 5.7 g/dL 09/02/2024 8:57 PM EDT [facility] Bilirubin, Indirect 14.43(H) 0.00 - 1.10 mg/dL 09/02/2024 8:57 PM EDT [facility] Plasma 09/02/2024 5:00 PM EDT 09/02/2024 7:34 PM EDT Doron Botello MD LAB BLOOD ORDERABLES Final Result [facility] [address] documented in this encounter Visit Diagnoses Diagnosis Alcoholic cirrhosis of liver without ascites (CMS-HCC) Cirrhosis of liver with ascites, unspecified hepatic cirrhosis type (CMS-HCC) Cirrhosis of liver with ascites, unspecified hepatic cirrhosis type (CMS-HCC) documented in this encounter
--- OUTSIDE RECORDS SUMMARY | 2024-09-03 04:56 | XMS_ITS | Encounter Summary ---
Author Organization [facility] Address [facility] [place] [address] Care Team Providers Care Bone Grinder Name Role Phone Unavailable Primary Care Provider [...] release of HIV test results or diagnoses. [id number] Reason for Visit * Reason Comments Abdominal Pain * Auth/Cert (Routine) Specialty Diagnoses / Procedures Referred By Shane hernadez Referred To Contact Emergency Medicine [facility] Emergency Department [address] [place] [phone] Phone: tel: fax: Referral ID Status Reason Start Date Expiration Date Visits Re quested Visits Authorized [id number] 1 1 Encounter Details Date Type Department Care Team (Latest Contact Info) Description 09/03/2024 4:56 AM EDT - 09/09/2024 6:25 PM EDT Hospital Encounter [facility] [address] [place] [address] Ana Maria Ramey MD [address] [place] [phone] Jarrod Alas MD [address] [place] [address] Kiet Ramirez MD [address] [place] [address] Kathie Sanchez MD [address] [place] [address] Flaquita Mendez MD [address] [place] [address] Alcoholic cirrhosis of liver with ascites (CMS-HCC) (Primary Dx); Abdominal pain, unspecified abdominal location; NADIYA (acute kidney injury) ([facility]) [N17.9] Discharge Disposition: Home or Self Care [...] Recorded In the past 12 months has [employer]Pack, gas, oil, or water [employer] threatened to shut off services in your [...] any time in the past 12 m [facility], were you homeless or living in a halfway (including now)? No 09/05/2024 Yearly Questionnaire Answer [...] Mendez MD - 09/09/2024 2:27 PM EDT [facility] Department of Internal Medicine Inpatient Discharge Summary Patient: Julien Anderson CSN: [id number] Date of Admission: 09/03/2024 Date of Discharge: 09/09/2024 Attending Physician: Flaquita Mendez* Past Medical History Past Medical History: Diagnosis Date Alcoholic cirrhosis of liver ([facility]) Alcoholic hepatitis Esophageal varices ([facility]) Hepatorenal syndrome ([facility]) Hypertension Other hyperlipidemia 07/26/2024 Renal cell carcinoma ([facility]) Thrombocytopenia ([facility]) Thyroid disease Discharge Diagnoses Active Hospital Problems Diagnosis Date Noted Alcoholic cirrhosis of liver without ascites ([facility]) [K70.30] 07/25/2024 C. difficile diarrhea [A04.72] 09/09/2024 C Diff Diarrhea [R19.7] 09/08/2024 BRBPR (bright red blood per rectum) [K62.5] 09/07/2024 Anemia [D64.9] 09/05/2024 Abdominal pain [R10.9] 09/03/2024 Hypokalemia [E87.6] 09/03/2024 CKD (chronic kidney disease) stage 4, GFR 15-29 ml/min ([facility]) [N18.4] 09/03/2024 Metabolic acidosis with normal anion gap and bicarbonate losses [E87.20] 09/03/2024 GERD (gastroesophageal reflux disease) [K21.9] 09/03/2024 Hypothyroidism [E03.9] 09/03/2024 Itching [L29.9] 09/03/2024 Renal mass, left [N28.89] 08/18/2024 Alcohol use disorder [F10.90] 07/26/2024 Other hyperlipidemia [E78.49] 07/26/2024 Hypertension [I10] Thrombocytopenia ([facility]) [D69.6] Resolved Hospital Problems Diagnosis Date Noted Date Resolved SBP (spontaneous bacterial peritonitis) ([facility]) [K65.2] 09/08/2024 09/08/2024 Metabolic encephalopathy [G93.41] 07/26/2024 09/08/2024 NADIAY (acute kidney injury) ([facility]) [N17.9] 07/25/2024 09/08/2024 Operations/Procedures Performed (include dates) Surgeries: None Lines/Drains/Airways: Patient Lines/Drains/Airways Status Active Line / PIV Line None Notable Imaging Studies: X-ray Portable Chest Final Result IMPRESSION: No significant interval change. Report Verified by: Essence Lopez MD at 09/03/2024 2:13 PM EDT US Duplex Wpq-Sny-Xcnuuav Comp Final Result IMPRESSION: ABDOMEN Cirrhosis and [...] Your Medications These medications were sent to [facility] [address] [place] [id number] Hours: Sunday - Sunday: 8:00AM - 6:00PM [...] Imaging 12/02/2024 2:00 PM GI/LIVER FELLOW 4 [facility] MARIANGEL MAB MAB 12/05/2024 8:00 AM Chris Orosco MD [facility] >30 minutes spent on discharge Signed: Flaquita [...] MAB 12/05/2024 8:00 AM Chris Orosco MD [facility] Recent Lab Values for you and your [...] this encounter Medications at Time of Discharge folic acid (FOLVITE) 1 MG tablet Take 1 tablet (1 mg total) by mouth daily. levothyroxine (SYNTHROID) 75 MCG tablet Take 1 tablet (75 mcg total) by mouth every morning before breakfast. pantoprazole (PROTONIX) 40 MG tablet Take 1 tablet (40 mg total) by mouth every morning before breakfast. potassium chloride (KLOR-CON M20) 20 MEQ tabletIndications [...] 60 capsule 09/09/2024 3:56 PM EDT 09/09/2024 zinc sulfate (ZINCATE) 50 mg zinc (220 mg) capsule Take 1 capsule (220 mg total) by mouth daily. 60 capsule 08/19/2024 1:23 PM EDT 08/20/2024 vancomycin (VANCOCIN) 125 MG capsule Take 1 capsule (125 mg total) by mouth 4 times a day for 10 days. 40 capsule 09/09/2024 3:56 PM EDT 09/09/2024 5 cholestyramine-as partame (PREVALITE) 4 gram Powd bulk Mix one scoop with 4-6 ounces of water and drink by mouth daily. 231 g 08/19/2024 1:23 PM EDT 08/19/2024 5 ciprofloxacin HCl (CIPRO) 500 MG tablet Take 1 tablet (500 mg total) by mouth daily. 30 tablet 09/09/2024 3:56 PM EDT 09/10/2024 5 lactulose (CHRONULAC) 10 gram/15 mL solution Take 30 mLs (20 g total) by mouth 3 times a day as needed (goal 2-3 bowel movements a day). 2838 mL 08/19/2024 1:23 PM EDT 08/19/2024 5 rifAXIMin (XIFAXAN) 550 mg Tab tablet Take 1 tablet (550 mg total) by mouth 2 times a day. 60 tablet 08/19/2024 1:23 PM EDT 08/19/2024 5 sodium bicarbonate 650 MG tablet Take 2 tablets (1,300 mg total) by mouth 3 times a day. 90 tablet 08/19/2024 1:23 PM EDT 08/19/2024 5 traMADoL (ULTRAM) 50 mg tablet Take 1 tablet (50 mg total) by mouth every 12 hours as needed for Pain (Pain). 5 documented as of this encounter Progress Notes * Elle Sirera RN - 09/09/2024 4:22 PM EDT AVS [...] this time. Thank you, Chelsy Piper PharmD, [facility] Clinical Mailroom Supervisor - Internal Medicine Preferred Contact: [employer] Secured Chat 09/09/2024 3:37 PM * Azalea Hughes DO - 09/09/2024 8:26 AM EDT [facility] Internal Medicine - Progress Note Chief Concern [...] with SBP, s/p CTX x5d; will cont chcf ppx with Cipro 500mg daily - HE: [...] disease) stage 4, GFR 15-29 ml/min (CMS-HCC) As above for NADIYA Alcohol use disorder [...] Sanchez MD - 09/08/2024 9:31 AM EDT [facility] Internal Medicine - Progress Note Chief Concern [...] kidney disease) stage 4, GFR 15-29 ml/min ([facility]) As above for NADIYA Alcohol use disorder [...] Cont home cholestyramine - Cont ursodiol Thrombocytopenia ([facility]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 Hypertension No meds. Other [...] No pain reported SBP (spontaneous bacterial peritonitis) ([facility]) (Resolved: 09/08/2024) Para with fluid studies on [...] another specialty or practice, other licensed professional (PT/OT/NURSE ORTHOPEDIC/RT), or a non-medical community professional: Hepatology Labs [...] ineligible d/t alcohol use. Then re-admitted to [facility] 07/25-07/29 after worsening outpatient labs (NADIYA). also noted ongoing/worsening jaundice. Repeat US without ascites. His last drink was prior to admission at . During prior admission, renal function improved with volume expansion, held octreotide and midodrine. [facility] Admission -08/19/24 with generalized weakness, worsening labs [...] assessment and plan. 39 y.o. male with chcf history of alcoholic liver disease, jaundice, ascites, [...] Ceftriaxone for 5 days. Will switch to chcf prophylaxis with Cipro 500 mg daily. Supportive [...] Saxena MD - 09/07/2024 6:17 PM EDT [facility] Medicine Cross Cover Note Follow up task / Call regarding: Julien Anderson Issue: Bmp follow up potassium 3.4. bicarb improving. Action: reordered potassium RICCI SAXENA MD Division of Hospital Medicine Department of Internal Medicine 6:16 PM, 09/07/2024 * Azaleafrancois HughesDO - 09/07/2024 6:45 AM EDT Hospital Medicine Progress Note [facility] // [facility] Chief Concern / Reason for Follow-Up [...] appropriate affect, pleasant, cooperative Laboratory Data Lab 09/07/2434109/06/24163609/06/24 0430 09/05/24 0724 WBC 4.0 5.1 4.3 4.6 HEMOGLOBIN 7.4* 8.3* 8.4* 7.6* HEMATOCRIT 20.7* 23.3* 22.8* 21.1* MEAN CORPUSCULAR VOLUME 100.2* 100.4* 99.9 99.7 PLATELETS 40* 45* 41* 37* Lab 09/07/2434109/06/24 16309/06/240 09/05/24 0724 SODIUM 137 137 137 134 [...] kidney disease) stage 4, GFR 15-29 ml/min ([facility]) As above for NADIYA Metabolic encephalopathy Likely [...] Cont home cholestyramine - Cont ursodiol Thrombocytopenia ([facility]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 Hypertension No meds. Other [...] another specialty or practice, other licensed professional (PT/OT/NURSE ORTHOPEDIC/RT), or a non-medical community professional: hepatology Labs reviewed (1 pt each): BMP x2, LFT, CBC, INR Review of notes from a different specialty or different practice: hepatology Kathie Sanchez MD [facility] Medicine 09/07/2024 10:22 AM * Jean Maher MD - 09/07/2024 6:39 AM EDT [...] Now uptrending creatinine. UA-6.5/> 1.035/trace/negative/NAD Urine electrolytes- <10/<15 Ultrasound retroperitoneum 09/03/2024 Right kidney: 11.3 cm [...] acute / urgent / emergent indication for SOFTWARE ADMINISTRATOR at this time. Nephrology signing off. Please [...] lb 11.2 oz (110.1 kg) Date 09/06/24 0700 - 09/07/24 0659 09/07/24 0700 - 09/08/24 0659 Shift 4557-3318 5306-6835 4197-2000 24 Hour Total 3466-6745 0979-1835 4157-2544 24 Hour Total INTAKE P.O. 240 340 [...] not displayed. Recent Labs 09/06/24 04309/06/24 16309/07/24 034 CALCIUM 8.6 8.7 8.3* PHOS 2.0* 2.2 1.9* No results found for: IRON , TIBC , FERRITIN No results found for: [id number] , FOLATE Lab Results Component Value Date [...] CRUR No results found for: MICROALBUR , [id number] In addition to the above an extensive [...] goals of ~70-75. - no indication for SOFTWARE ADMINISTRATOR at this time - still have 8 [...] 7:36 AM EDT Hospital Medicine Progress Note [facility] // [facility] Chief Concern / Reason for Follow-Up [...] dry, jaundiced CV: RRR, no M/R/G, no JVAIER, JVP not visualized PULM: WOB wnl, CTAB GI/: soft abd, moderate distension, diffuse TTP no rebounding or guarding MSK: moving all extremities NERUO: AOx3, appropriately conversant, SILT in all extremities, no asterixis appreciated PSYCH: appropriate affect, pleasant, cooperative Laboratory Data Lab 09/06/24 0430 09/05/24 0724 09/04/24 0522 09/03/24 1726 WBC 4.3 [...] Recheck pm RFP NADIYA (acute kidney injury) ([facility]) Admit Cr 3.01 (from 2.91 on 09/02, recent BL 2.7-3.0), peak Cr 3.52, now improving. UA appears concentrated, no c/f obstruction on CT A/P. Treated as HRS initially given severity of CKD and cirrhosis,de-escalating tx as above. Renal consulted. - Cont home sodium bicarb 1300mg TID - Albumin challenge and octreotide/midodrine as above CKD (chronic kidney disease) stage 4, GFR 15-29 ml/min ([facility]) As above for NADIYA Metabolic encephalopathy [...] Cont home cholestyramine - Cont ursodiol Thrombocytopenia ([facility]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 Hypertension No meds. [...] another specialty or practice, other licensed professional (PT/OT/NURSE ORTHOPEDIC/RT), or a non-medical community professional: hepatology Labs reviewed (1 pt each): BMP, LFT, CBC, INR Review of notes from a different specialty or different practice: renal Kathie Sanchez MD [facility] Medicine 09/06/2024 1:06 PM * Jean Maher [...] Date 09/05/24 07 - 09/06/24 0659 09/06/24 07 - 09/07/24 0659 Shift 9522-0452 9304-0368 7512-7110 24 Hour Total 5497-4265 1758-8570 5632-5689 24 Hour Total INTAKE P.O. 600 250 [...] TIBC , FERRITIN No results found for: [id number] , FOLATE Lab Results Component Value Date [...] <15 No results found for: MICROALBUR , [id number] In addition to the above an extensive [...] goals of ~70-75. - no indication for SOFTWARE ADMINISTRATOR at this time ANEUDY SIMONS 09/06/2024 This [...] comprehensive medication evaluation was conducted through the [facility] electronic medical record review on interprofessional rounds [...] Julien Anderson as a part of the Medicine Team. Chelsy Piper PharmD, [facility] Clinical Mailroom Supervisor - Internal Medicine Preferred Contact: [facility] Secured Chat 09/05/2024 2:17 PM * Gee [...] Consult Staff. Gee May Nephrology fellow Pager [phone] Chief Complaint Chief Complaint Patient presents with [...] TIBC , FERRITIN No results found for: [id number] , FOLATE Lab Results Component Value Date [...] <15 No results found for: MICROALBUR , [id number] In addition to the above an extensive [...] 09/05/2024 11:51 PM EDT Associated attestation - Vernon Aneudy - 09/05/2024 11:51 PM EDT Patient is [...] goals of ~70-75. - no indication for SOFTWARE ADMINISTRATOR at this time ANEUDY SIMONS 09/05/2024 This [...] management for this patient. * Azalea Hughes, - 09/05/2024 7:56 AM EDT Hospital Medicine Progress Note [facility] // [facility] Chief Concern / Reason for Follow-Up [...] 145* Lab 09/05/24 0724 09/04/24 1621 09/04/24 0522 09/04/24 0220 09/03/24 1343 09/03/24 1049 CALCIUM 8.6 9.1 8.5* 9.0 < > 8.6 MAGNESIUM 2.0 2.4 2.4 2.5 < > 1.8 PHOSPHORUS 2.1 -- 2.2 -- -- 2.5 < > = values in this interval not displayed. Lab 09/05/24 0709/04/24 0509/03/24 0535 09/02/24 1700 INR 2.5* 3.0* 2.0* [...] BMPs to BID NADIYA (acute kidney injury) ([facility]) Admit Cr 3.01 (from 2.91 on 09/02, [...] kidney disease) stage 4, GFR 15-29 ml/min ([facility]) As above for NADIYA Metabolic encephalopathy Likely [...] ceftriaxone and symptoms moving forward. #SBP Day 3/ ceftriaxone Cont albumin #NADIYA 2/ #HRS Improving [...] min): total time personally spent today, including eshq-es-ndmg with patient and/or caregiver(s), as well as nip-kbmx-ea-face time spent in care coordination, consultation, reviewing records, and documentation was 55 minutes. Kathie Sanchez MD [facility] Medicine 09/06/2024 7:07 AM * Leatha Ceja [...] ineligible d/t alcohol use. Then re-admitted to [facility] 07/25-07/29 after worsening outpatient labs (NADIYA). also noted ongoing/worsening jaundice. Repeat US without ascites. His last drink was prior to admission at . During prior admission, renal function improved with volume expansion, held octreotide and midodrine. [facility] Admission -08/19/24 with generalized weakness, worsening labs [...] assessment and plan. 39 y.o. male with chcf history of alcoholic liver disease, jaundice, ascites, hepatic encephalopathy, sober since May 2024, admitted with abdominal pain and weakness. Initial testing negative for infection but repeat paracentesis confirmed SBP. Started on Ceftriaxone. Feeling better this Am alt irena thinks he might have had a skin reaction to Ceftriaxone. Kidney function improving PE Vitals: 09/05/24 0608 09/05/24 0713 09/05/24 0916 09/05/24 1000 [...] documented for this encounter. Date: 09/04/2024 Room: [address] Reviewed Pertinent hospital course: Yes Hospital [...] toilet at the end of the session /2 not a fall risk, independent mobility, and spouse in room. RN aware.) Details: RN notified;Call light/ needs within reach;visitor present Alarms: Bed Alarms Status: Not needed-patient on [place] fall risk precautions with other interventions in [...] documented for this encounter. Date: 09/04/2024 Room: [address] Reviewed Pertinent hospital course: Yes Hospital [...] Additional Comments: pt ended session on toilet 06/15 not a fall risk, independent mobility, and spouse in room Details: RN notified;visitor present;Call light/ needs within reach Alarms: Bed Alarms Status: Not needed-patient on [place] fall risk precautions with other interventions in [...] 10:43 AM EDT Hospital Medicine Progress Note [facility] // [facility] Chief Concern / Reason for Follow-Up [...] cooperative Laboratory Data Lab 09/04/24 0522 09/03/24 17209/03/24 0529 09/02/24 1700 WBC 9.6 9.9 10.8 10.4 HEMOGLOBIN 8.5* 8.4* 11.9* 11.1* HEMATOCRIT 23.1* 23.1* 33.0* 30.7* MEAN CORPUSCULAR VOLUME 98.6 98.3 98.6 97.9 PLATELETS 41* 42* 71* 73* Lab 09/04/2452109/04/2421909/03/24214909/03/24 1816 SODIUM 132* 133 131* 132* POTASSIUM [...] 1.9* PROTHROMBIN TIME 32.0* 22.9* 22.2* Lab 09/04/2452109/03/24 0529 09/02/24 1700 ALT 30 45 43 [...] at 09/03/2024 2:13 PM EDT US Duplex Lme-Zel-Husxzfl Comp Result Date: 09/03/2024 EXAM: US ABDOMEN COMPLETE EXAM: US DUPLEX [id number] COMPLETE INDICATION: Evaluate for cholecystitis COMPARISON: 09/03/2024 [...] EXAM: US ABDOMEN COMPLETE EXAM: US DUPLEX [id number]-[id number]-[id number] COMPLETE INDICATION: Evaluate for cholecystitis COMPARISON: 09/03/2024 [...] BMPs to BID NADIYA (acute kidney injury) ([facility]) Admit Cr 3.01 (from 2.91 on [...] kidney disease) stage 4, GFR 15-29 ml/min ([facility]) As above for NADIYA Metabolic encephalopathy [...] another specialty or practice, other licensed professional (PT/OT/NURSE ORTHOPEDIC/RT), or a non-medical community professional: hepatology Labs [...] this time. Thank you, Chelsy Piper PharmD, [facility] Clinical Mailroom Supervisor - Internal Medicine Preferred Contact: [employer] Secured Chat 09/03/2024 12:52 PM * Jarrod Alas MD - 09/03/2024 7:24 AM EDT [facility] ED Reassessment Note Julien Anderson is [...] for admission. Jarrod Alas MD Emergency Medicine [facility] * Rommel Mccoy MD - 09/03/2024 5:46 [...] in this encounter H&P Notes * Kiet Ramirez MD - 09/03/2024 10:15 AM EDT Hospital Medicine [facility] // [facility] Name: Julien Anderson Chief Concern Abd [...] Diagnostic Studies and MDM Documentation US Duplex Pxd-Dcf-Ubtwugz Comp Final Result IMPRESSION: ABDOMEN Cirrhosis and [...] kidney disease) stage 4, GFR 15-29 ml/min ([facility]) Admit Cr 3.01, 3.26 on [...] levothyroxine Itching - Cont home cholestyramine Thrombocytopenia ([facility]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 Hypertension No meds. Other [...] another specialty or practice, other licensed professional (PT/OT/NURSE ORTHOPEDIC/RT), or a non-medical community professional: hepatology Labs [...] Mccoy MD - 09/03/2024 5:11 AM EDT [facility] ED Note Date of Service: 09/03/2024 Reason for Visit: Abdominal Pain Patient History HPI Julien Anderson is a 39 y.o. male [...] ultrasound to further evaluate. - s/p EGD 3/18 which showed grade 1 and 2 varices, [...] department physician Rhythm: normal sinus Rate: normal [place]: left Ectopy: none Conduction: Prolonged QT, left [...] renal injury with increased fluid status. 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 [...] LLQ . Under sterile conditions, 5 Fr/7cm Room catheter was inserted in a LLQ site [...] of findings/procedures, which can be located in [facility] Procedures (or [facility] Imaging) Tabs. Plan discussed with provider Ashley ABDULLAHI from Medicine team 09/04/2024, 3:51 PM. Please call with any questions. Shelia Logan CNP Vascular & Interventional Radiology 09/04/2024,3:51 PM [facility]: [phone]) * Rommel Mccoy MD - 09/03/2024 7:01 AM EDTAssociated Order(s): Paracentesis [facility] ED Procedure Note Emergency Department Procedures Paracentesis Date/Time: 09/03/2024 7:01 AM Performed by: Rommel Mccoy MD Authorized by: Ana Maria Ramey MD Consent: Consent obtained: Written Consent given by: Patient Risks, benefits, and alternatives were discussed: yes Risks discussed: Bleeding, bowel perforation, infection and pain Alternatives discussed: No treatment [place] protocol: Procedure explained and questions answered to [...] Pulse: 93 104 91 91 Resp: 18 20 Temp: 97.7 ??F (36.5 ??C) 97.9 [...] PLT 45* 40* 43* Recent Labs 09/07/24 03409/07/24 1536 09/08/24 0405 NA 137 139 137 [...] < > 45 30 < > 25 27 26 ALKPHOS -- < > 139* 75 [...] not displayed. Recent Labs 09/06/24 0430 09/07/24 03409/08/24 0405 INR 2.2* 2.3* 2.3* PROTIME 25.3* [...] Time Spent: Time Spent with Patient: Total mwzz-xv-qbyc time spent with patient (greater than 50% of the visit was for the purpose of discussion and counseling): 35 minutes. FARHANA CONTRERAS CNP Vascular & Interventional Radiology 09/08/2024,9:33 AM [facility]: [phone]) [1] Social History Tobacco Use Smoking Status [...] Consult Staff. Gee May Nephrology fellow Pager [phone] Chief Complaint Chief Complaint Patient presents with [...] 09/03/24 1049 09/03/24 1343 09/04/24 0220 09/04/24 0509/04/24 1621 CALCIUM 8.6 < > 9.0 8.5* 9.1 PHOS 2.5 -- -- 2.2 -- < > = values in this interval not displayed. No results found for: IRON , TIBC , FERRITIN No results found for: [id number] , FOLATE Lab Results Component Value Date [...] <15 No results found for: MICROALBUR , [id number] In addition to the above an extensive [...] Seun Phillips - 09/04/2024 3:03 PM EDT [employer] Case Management/Social Work Department Brief Assessment Re-Admission within 30 days Planned or unplanned? Unplanned If planned: Reason? N/A If unplanned: Reason? Abd pain Discuss with patient any barriers to prevent re-admission? N/A Patient Information Admission diagnosis: Demographic verified and updated as needed Support Systems Designated decision maker (POA or Next of Kin): Nikkie Anderson Phone #: [phone] Relationship: Spouse Living Arrangements Prior to Hospitalization [...] at this time. 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 May need a work note at discharge. Patient has no history of or current mental health concerns or diagnoses. Patient has a history of or current alcohol abuse. Last consumed about 1.5 months ago. No home oxygen or dialysis. No history of longterm facility or inpatient rehabilitation facility admissions. No [...] interest(s) are disclosed as appropriate. NUBIA Navas COMPUTER HARDWARE ENGINEER [phone] * Shelia Logan CNP - 09/04/2024 11:54 AM EDT Interventional Radiology Consult Note Date: 09/04/2024 Patient: Julien Anderson : 1985 Primary Care Provider: Enedina Mcgurie NP Requesting Provider: Vernon Santizo MD Chief Complaint: Abdominal Pain Reason for Consult: ascites IR Procedure Request Received and Reviewed. HPI: Julien Anderson is a 39 y.o. male with Pmhx of EtOH cirrhosis d/b HE, jaundice, NBEV, and ascites withrecent alcoholic associated hepatitis currently admitted with abdominal pain and malaise. US 4/23 demonstrates moderate volume ascites. Diagnostic para in [...] 42* 41* Recent Labs 08/19/24 0259 09/02/24 1700 09/03/24 1049 09/03/24 1343 09/03/24 2150 09/04/24 0220 [...] displayed. Recent Labs 09/02/24 17009/03/24 0529 09/04/24 05 ALBUMIN 3.3* 3.3* 3.4* 3.2* BILIDIRECT 20.97* 19.8* 17.39* Recent Labs 09/02/24 1700 09/03/24 0535 09/04/24 0522 INR 1.9* 2.0* 3.0* [...] CNP Vascular & Interventional Radiology 09/04/2024,3:32 PM [facility]: [phone]) [1] Social History Tobacco Use Smoking Status [...] ineligible d/t alcohol use. Then re-admitted to [facility] 07/25-07/29 after worsening outpatient labs (NADIYA). also noted ongoing/worsening jaundice. Repeat US without ascites. His last drink was prior to admission at . During prior admission, renal function improved with volume expansion, held octreotide and midodrine. [facility] Admission -08/19/24 with generalized weakness, worsening labs [...] assessment and plan. 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 Pt has history [...] and is agreeable. Receiving RN may call [phone] to consult ED RN with questions regarding [...] and 2 lavender tops as directed by slab grinder. Labs being walked up to micro by [...] Patient will remain free of falls Goal: [place] Fall Precautions Outcome: Progressing * Plan of Care - Lydia Harrison RN - 09/09/2024 2:00 AM EDT Problem: High Fall Risk Precautions Goal: High Fall Risk Precautions Outcome: Progressing Problem: Patient will remain free of falls Goal: [place] Fall Precautions Outcome: Progressing Problem: Psychosocial Needs [...] Schultz RN - 09/08/2024 1:03 PM EDT [facility] Case Management/Social Work Department Progress Note [...] disease. PCP: Enedina Mcguire NP Home Pharmacy: [facility] [address] [place] [address] [place] [address] [facility] [address] [facility] [id number] Medical Insurance Coverage: Payor: [facility] / Plan: [facility] G[facility]BAL / Product Type: *No Producttype* / Other Pertinent Information RN CM received an update from medical team. Per team pt is not MR for discharge today. Pt with complaint of belly pain. Paracentesis scheduled for today with IR. C-diff and enteric pathogen panel to be performed today. Discharge Plan Anticipated discharge plan: Home NN Anticipated discharge date: 09/10/24 CM/SW will continue to follow and remain available for discharge planning needs. JAVAN SCHULTZ RN [phone] * Care Coordination - Kandy Fuentes - [...] disease. PCP: Enedina Mcguire NP Home Pharmacy: [facility] KHADIJAH, [facility] [address] [place] [id number] [facility] [address] [facility] [id number] Medical Insurance Coverage: Payor: [facility] / Plan: [facility] / Product Type: *No Producttype* / Other Pertinent Information RN/CM received update from team and completed chart review. Pt is not medically ready for discharge. LE edema, leaking from para site Repeat BMP and K repletion Renal consulted Discharge Plan Anticipated discharge plan: home Anticipated discharge date: 09/09/24 CM/SW will continue to follow and remain available for discharge planning needs. Kandy BAE RN * Plan of Care - Yolette Yang [...] Patient will remain free of falls Goal: [place] Fall Precautions Outcome: Progressing Problem: Daily Care [...] Patient will remain free of falls Goal: [place] Fall Precautions 09/06/[id number] by Baudilio Macario RN [...] Marshall RN - 09/05/2024 10:03 AM EDT [facility] Case Management/Social Work Department Progress Note [...] hyperlipidemia (07/26/2024), Renal cell carcinoma (CMS-HCC), Thrombocytopenia ([facility]), and Thyroid disease. PCP: Enedina Mcguire NP Home Pharmacy: [facility] [id number] [address] [facility] [address] [facility] [id number] Medical Insurance Coverage: Payor: [facility] / Plan: [facility] / Product Type: *No Producttype* / Other Pertinent Information Per team in interdisciplinary rounds, patient is not medically ready for discharge today. SBP and cirrhosis, IV ATB; renal consulted for NADIYA, receiving albumin. Discharge Plan Anticipated discharge plan: Home Anticipated discharge date: 09/08 CM/SW will continue to follow and remain available for discharge planning needs. Abiola Marshall RN/Floor PersonBattery Charger Conveyor Line Services [phone] * Plan of Care - Minh Torres RN - 09/05/2024 12:50 AM EDT Problem: High Fall Risk Precautions Goal: High Fall Risk Precautions Outcome: Progressing documented in this encounter Plan of Treatment Upcoming Encounters Date Type Department Care Team (Late st Contact Info) Description 12/05/2024 8:01 AM EDT Hospital Encounter [facility] ENDOSCOPY [address] [place] [phone] Chris Orosco MD [address] [place] [phone] 12/05/2024 8:01 AM EDT - 12/05/2024 8:31 AM EDT Surgery [facility] ENDOSCOPY [address] [place] [id number] Chris Orosco MD [address] [place] [address] EGD Scheduled Procedures Name Priority Associated Diagnoses Date/Ti me EGD Cirrhosis of liver with ascites, unspecified hepatic cirrhosis type ([facility]) 12/05/2024 8:01 AM EDT documented as of [...] STAT 09/03/2024 10:49 AM EDT US DUPLEX [id number] COMPLETE STAT 09/03/2024 10:30 AM EDT US [...] PM EDT) Gram Stain Result Cytospin Results: [facility] Gram Stain Result Polymorphonuclear Leukocytes Seen; [facility] Gram Stain Result No Organisms Seen; [facility] Culture Result No Growth After 5 Days [facility] Paracentesis Fluid ABDOMINOPELVIC CAVITY STRUCTURE / Unknown 09/09/2024 2:57 PM EDT 09/09/2024 3:38 PM EDT Ashley JACOME MICROBIOLOGY - GENERAL ORDERA BLES Final Result [facility] [address] * Anaerobic culture (09/09/2024 2:56 PM EDT) Culture Result No Anaerobes Isolated in 5 Days [facility] Peritoneal Fluid ABDOMEN / Unknown 2024 2:56 PM EDT 09/09/2024 4:12 PM EDT Ashley JACOME MICROBIOLOGY - GENERAL ORDERA BLES Final Result Performing Organization Address City/[facility]/ZIP Co de Phone Number [facility] [address] [facility]. [address] * Body Fluid Cell Count (09/09/2024 2:56 PM EDT) Color, Fluid Yellow 09/09/2024 5:27 PM EDT [facility] Clarity, Fluid Clear 09/09/2024 5:27 PM EDT [facility] Neutrophil %, Fluid 14 % 09/09/2024 5:27 PM EDT [facility] Lymphocytes %, Fluid 20 % 09/09/2024 5:27 PM EDT [facility] Mesothelial %, Fluid 5 % 09/09/2024 5:27 PM EDT [facility] Macrophage %, Fluid 61 % 09/09/2024 5:27 PM EDT [facility] RBC, Fluid 0 /uL 09/09/2024 5:27 PM EDT [facility] Total Nucleated Cells, Fluid 272 /uL 09/09/2024 5:27 PM EDT [facility] Comment:Total Nucleated Cell s represent WBCs and other nucleated cells in the fluid such as lining cells. Paracentesis Fluid ABDOMEN / Unknown 08/13 2:56 PM EDT 09/09/2024 3:38 PM EDT us Ashley JACOME BODY FLUIDS AND STOOLS ORDERA BLES Final Result [facility] [address] [place] [address], [facility] * PARACENTESIS (09/09/2024 2:19 PM EDT) Narrative Procedure Note NAA Rodriguez - 09/09/2024 2:19 PM EDT Paracentesis Procedure Note Date: 09/09/2024 Time: 2:20 PM Indication: Ascites Procedure: Diagnostic and Therapeutic Paracentesis Informed consent was obtained. Ultrasound was used to evaluate thepresence of peritoneal fluid. Optimal site marked LLQ . Under sterileconditions, 5 Fr/7cm B5M.COMeh catheter was inserted in a LLQ site [...] - 15.1 seconds 09/09/2024 6:52 AM EDT [facility] INR 2.2(H) 0.9 - 1.1 09/09/2024 6:52 AM EDT [facility] Comment: RECOMMENDED THERAPEUTIC RANGES USING INR : Stable oral anticoagulant therapy: 2.0 - 3.0 Mechanical prosthetic heart valve: 2.5 - 3.5 Recurrent acute myocardial infarction: 2.5 - 3.5 Plasma 09/09/2024 6:12 AM EDT 09/09/2024 6:37 AM EDT Kathie Sanchez MD LAB BLOOD ORDERABLES Final Re sult [facility] [address] [place] [address], [facility] * (ABNORMAL) Hepatic Function Panel, AM (09/09/2024 6:12 AM EDT) Total Bilirubin 20.2(H) 0.0 - 1.5 mg/dL 09/09/2024 7:09 AM EDT [facility] Bilirubin, Direct 9.75(H) 0.00 - 0.40 mg/dL 09/09/2024 7:09 AM EDT [facility] AST 55(H) 13 - 39 U/L 09/09/2024 7:09 AM EDT [facility] ALT 26 7 - 52 U/L 09/09/2024 7:09 AM EDT [facility] Alkaline Phosphatase 152(H) 36 - 125 U/L 09/09/2024 7:09 AM EDT [facility] Total Protein 5.0(L) 6.4 - 8.9 g/dL 09/09/2024 7:09 AM EDT [facility] Albumin 3.7 3.5 - 5.7 g/dL 09/09/2024 7:09 AM EDT [facility] Bilirubin, Indirect 10.45(H) 0.00 - 1.10 mg/dL 09/09/2024 7:09 AM EDT [facility] Plasma 09/09/2024 6:12 AM EDT 09/09/2024 6:37 AM EDT Kathie Sanchez MD LAB BLOOD ORDERABLES Final Re sult [facility] [address] [place] [address], [facility] * (ABNORMAL) CBC, AM (09/09/2024 6:12 AM EDT) WBC 8.3 3.8 - 10.8 10E3/uL 09/09/2024 6:50 AM EDT [facility] RBC 2.34(L) 4.20 - 5.80 10E6/uL 09/09/2024 6:50 AM EDT [facility] Hemoglobin 8.7(L) 13.2 - 17.1 g/dL 09/09/2024 6:50 AM EDT [facility] Hematocrit 23.6(L) 38.5 - 50.0 % 09/09/2024 6:50 AM EDT [facility] MCV 100.9(H) 80.0 - 100.0 fL 09/09/2024 6:50 AM EDT [facility] MCH 37.3(H) 27.0 - 33.0 pg 09/09/2024 6:50 AM EDT [facility] MCHC 36.9(H) 32.0 - 36.0 g/dL 09/09/2024 6:50 AM EDT [facility] RDW 22.7(H) 11.0 - 15.0 % 09/09/2024 6:50 AM EDT [facility] Platelets 45(L) 140 - 400 10E3/uL 09/09/2024 6:50 AM EDT [facility] Comment:CNV MPV 8.6 7.5 - 11.5 fL 09/09/2024 6:50 AM EDT [facility] Whole Blood 09/09/2024 6:12 AM EDT 09/09/2024 6:37 AM EDT us Kathie Sanchez MD LAB BLOOD ORDERABLES Final Re sult [facility] [address] [place] [address], [facility] * Magnesium, AM (09/09/2024 6:12 AM EDT) Magnesium 1.7 1.5 - 2.5 mg/dL 09/09/2024 7:09 AM EDT [facility] Plasma 09/09/2024 6:12 AM EDT 09/09/2024 6:37 AM EDT us Kathie Sanchez MD LAB BLOOD ORDERABLES Final Re sult [facility] [address] [place], [place] [address] * (ABNORMAL) Renal Function Panel w/EGFR (09/09/2024 6:12 AM EDT) Sodium 135 133 - 146 mmol/L 09/09/2024 7:09 AM EDT [facility] Potassium 3.5 3.5 - 5.3 mmol/L 09/09/2024 7:09 AM EDT [facility] Chloride 110 98 - 110 mmol/L 09/09/2024 7:09 AM EDT [facility] CO2 15(L) 21 - 33 mmol/L 09/09/2024 7:09 AM EDT [facility] Anion Gap 10 3 - 16 mmol/L 09/09/2024 7:09 AM EDT [facility] BUN 30(H) 7 - 25 mg/dL 09/09/2024 7:09 AM EDT [facility] Creatinine 2.47(H) 0.60 - 1.30 mg/dL 09/09/2024 7:09 AM EDT [facility] Glucose 129(H) 70 - 100 mg/dL 09/09/2024 7:09 AM EDT [facility] Calcium 8.4(L) 8.6 - 10.3 mg/dL 09/09/2024 7:09 AM EDT [facility] Phosphorus 2.3 2.1 - 4.7 mg/dL 09/09/2024 7:09 AM EDT [facility] Albumin 3.7 3.5 - 5.7 g/dL 09/09/2024 7:09 AM EDT [facility] Osmolality, Calculated 288 278 - 305 mOsm/kg 09/09/2024 7:09 AM EDT [facility] EGFR 33 09/09/2024 7:09 AM EDT [facility] Comment:As of 2021, the [...] ORDERABLES Final Re sult Performing Organization Address City/[facility]/ZIP Co de Phone Number [facility] [address] [facility]. [address] * Clostridium Difficile Toxin A/B Antigen [...] ORDERA BLES Final Result Performing Organization Address City/[facility]/ZIP Co de Phone Number [facility] [address] * Enteric Pathogen Panel (09/09/2024 4:58 AM EDT) Pathologist [facility] Campylobacter Group (C. ecoli, C. jejuni, C. trino) Not Detected Not Detected 09/09/2024 9:44 AM EDT [facility] Salmonella species Not Detected Not Detected 09/09/2024 9:44 AM EDT [facility] Shigella species Not Detected Not Detected 09/09/2024 9:44 AM EDT [facility] Vibrio Group (Vibrio cholerae, Vibrio parahaemolyticus) Not Detected Not Detected 09/09/2024 9:44 AM EDT [facility] Yersinia enterocolitica Not Detected Not Detected 09/09/2024 9:44 AM EDT [facility] Shiga toxin 1 Not Detected Not Detected 09/09/2024 9:44 AM EDT [facility] Shiga toxin 2 Not Detected Not Detected 09/09/2024 9:44 AM EDT [facility] Norovirus Not Detected Not Detected 09/09/2024 9:44 AM EDT [facility] Rotavirus Not Detected Not Detected 09/09/2024 9:44 AM EDT [facility] Comment: The Enteric Pathogen Panel is [...] Kathie Sanchez MD BODY FLUIDS AND STOOLS JULIUS DUBOSE Final Result [facility] [address] [facility]. [place], [place] [address] * (ABNORMAL) Clostridium difficile DNA Amplification (09/09/2024 4:58 AM EDT) Pathologist [facility] Clost. Diff DNA Amp. Positive( A) Negative 09/09/2024 1:20 PM EDT [facility] Comment:Positive indicates t oxigenic C. difficile [...] FLUIDS AND STOOLS ORDERA BLES Final Result [facility] [address] [place] [address], [facility] * (ABNORMAL) Renal Function Panel w/EGFR (09/08/2024 3:50 PM EDT) Sodium 136 133 - 146 mmol/L 09/08/2024 6:01 PM EDT [facility] Potassium 3.5 3.5 - 5.3 mmol/L 09/08/2024 6:01 PM EDT [facility] Chloride 110 98 - 110 mmol/L 09/08/2024 6:01 PM EDT [facility] CO2 13(L) 21 - 33 mmol/L 09/08/2024 6:01 PM EDT [facility] Anion Gap 13 3 - 16 mmol/L 09/08/2024 6:01 PM EDT [facility] BUN 29(H) 7 - 25 mg/dL 09/08/2024 6:01 PM EDT [facility] Creatinine 2.24(H) 0.60 - 1.30 mg/dL 09/08/2024 6:01 PM EDT [facility] Glucose 114(H) 70 - 100 mg/dL 09/08/2024 6:01 PM EDT [facility] Calcium 8.5(L) 8.6 - 10.3 mg/dL 09/08/2024 6:01 PM EDT [facility] Phosphorus 2.3 2.1 - 4.7 mg/dL 09/08/2024 6:01 PM EDT [facility] Albumin 3.5 3.5 - 5.7 g/dL 09/08/2024 6:01 PM EDT [facility] Osmolality, Calculated 289 278 - 305 mOsm/kg 09/08/2024 6:01 PM EDT [facility] EGFR 37 09/08/2024 6:01 PM EDT [facility] Comment:As of 2021, the [...] Luis Eduardo C, Talia M, Olivia [place], Emeriat [place], Madelyn [place], Felicia [place], et al. A Unifying Approach for GFR Estimation: Recommendations of the NKF-ASN Task Force on Reassessing the inclusion of Race in Diagnosing Kidney Disease. Am J Kidney Dis. 2020. Plasma 09/08/2024 3:50 PM EDT 09/08/2024 4:34 PM EDT us Chicho Mackay MD LAB BLOOD ORDERABLES Final Res ult [facility] [address] [id number], [facility] * (ABNORMAL) Renal Function Panel w/EGFR (09/08/2024 2:08 PM EDT) Sodium 136 133 - 146 mmol/L 09/08/2024 2:55 PM EDT [facility] Potassium 3.3(L) 3.5 - 5.3 mmol/L 09/08/2024 2:55 PM EDT [facility] Chloride 112(H) 98 - 110 mmol/L 09/08/2024 2:55 PM EDT [facility] CO2 16(L) 21 - 33 mmol/L 09/08/2024 2:55 PM EDT [facility] Anion Gap 8 3 - 16 mmol/L 09/08/2024 2:55 PM EDT [facility] BUN 30(H) 7 - 25 mg/dL 09/08/2024 2:55 PM EDT [facility] Creatinine 2.22(H) 0.60 - 1.30 mg/dL 09/08/2024 2:55 PM EDT [facility] Glucose 135(H) 70 - 100 mg/dL 09/08/2024 2:55 PM EDT [facility] Calcium 8.1(L) 8.6 - 10.3 mg/dL 09/08/2024 2:55 PM EDT [facility] Phosphorus 1.9(L) 2.1 - 4.7 mg/dL 09/08/2024 2:55 PM EDT [facility] Albumin 3.3(L) 3.5 - 5.7 g/dL 09/08/2024 2:55 PM EDT [facility] Osmolality, Calculated 290 278 - 305 mOsm/kg 09/08/2024 2:55 PM EDT [facility] EGFR 37 09/08/2024 2:55 PM EDT [facility] Comment:As of 2021, the [...] MD LAB BLOOD ORDERABLES Final Re sult [facility] [address] [place] [address], [facility] * (ABNORMAL) Hepatic Function Panel, AM (09/08/2024 4:05 AM EDT) Total Bilirubin 18.7(H) 0.0 - 1.5 mg/dL 09/08/2024 7:11 AM EDT [facility] Bilirubin, Direct 9.06(H) 0.00 - 0.40 mg/dL 09/08/2024 7:11 AM EDT [facility] AST 48(H) 13 - 39 U/L 09/08/2024 7:11 AM EDT [facility] ALT 26 7 - 52 U/L 09/08/2024 7:11 AM EDT [facility] Alkaline Phosphatase 114 36 - 125 U/L 09/08/2024 7:11 AM EDT [facility] Total Protein 4.8(L) 6.4 - 8.9 g/dL 09/08/2024 7:11 AM EDT [facility] Albumin 3.4(L) 3.5 - 5.7 g/dL 09/08/2024 7:11 AM EDT [facility] Bilirubin, Indirect 9.64(H) 0.00 - 1.10 mg/dL 09/08/2024 7:11 AM EDT [facility] Plasma 09/08/2024 4:05 AM EDT 09/08/2024 4:26 AM EDT Azalea Hughes LAB BLOOD ORDERABLES Final Res ult Performing Organization Address City/State/[facility] Co de Phone Number [facility] [address] * (ABNORMAL) Protime-INR, AM (09/08/2024 4:05 AM EDT) Protime 26.0(H) 12.1 - 15.1 seconds 09/08/2024 4:39 AM EDT [facility] INR 2.3(H) 0.9 - 1.1 09/08/2024 4:39 AM EDT [facility] Comment: RECOMMENDED THERAPEUTIC RANGES USING INR : Stable oral anticoagulant therapy: 2.0 - 3.0 Mechanical prosthetic heart valve: 2.5 - 3.5 Recurrent acute myocardial infarction: 2.5 - 3.5 Plasma 09/08/2024 4:05 AM EDT 09/08/2024 4:20 AM EDT [facility] LAB BLOOD ORDERABLES Final Res ult [facility] [address] * Magnesium (09/08/2024 4:05 AM EDT) Magnesium 1.5 1.5 - 2.5 mg/dL 09/08/2024 7:11 AM EDT [facility] Plasma 09/08/2024 4:05 AM EDT 09/08/2024 4:26 AM EDT [facility] LAB BLOOD ORDERABLES Final Res ult Performing Organization Address [facility] Co de Phone Number [facility] [address] * (ABNORMAL) Renal Function Panel w/EGFR (09/08/2024 4:05 AM EDT) Sodium 137 133 - 146 mmol/L 09/08/2024 5:37 AM EDT [facility] Potassium 3.3(L) 3.5 - 5.3 mmol/L 09/08/2024 5:37 AM EDT [facility] Chloride 112(H) 98 - 110 mmol/L 09/08/2024 5:37 AM EDT [facility] CO2 13(L) 21 - 33 mmol/L 09/08/2024 7:11 AM EDT [facility] Anion Gap 12 3 - 16 mmol/L 09/08/2024 7:11 AM EDT [facility] BUN 31(H) 7 - 25 mg/dL 09/08/2024 7:11 AM EDT [facility] Creatinine 2.36(H) 0.60 - 1.30 mg/dL 09/08/2024 7:11 AM EDT [facility] Glucose 147(H) 70 - 100 mg/dL 09/08/2024 7:11 AM EDT [facility] Calcium 8.3(L) 8.6 - 10.3 mg/dL 09/08/2024 7:11 AM EDT [facility] Phosphorus 2.2 2.1 - 4.7 mg/dL 09/08/2024 7:11 AM EDT [facility] Albumin 3.4(L) 3.5 - 5.7 g/dL 09/08/2024 7:11 AM EDT [facility] Osmolality, Calculated 293 278 - 305 mOsm/kg 09/08/2024 7:11 AM EDT [facility] EGFR 35 09/08/2024 7:11 AM EDT [facility] Comment:As of 2021, the [...] DO LAB BLOOD ORDERABLES Final Res ult [facility] [address] [id number], [facility] * (ABNORMAL) CBC (09/08/2024 4:05 AM EDT) WBC 6.5 3.8 - 10.8 10E3/uL 09/08/2024 5:00 AM EDT [facility] RBC 2.21(L) 4.20 - 5.80 10E6/uL 09/08/2024 5:00 AM EDT [facility] Hemoglobin 8.0(L) 13.2 - 17.1 g/dL 09/08/2024 5:00 AM EDT [facility] Hematocrit 22.3(L) 38.5 - 50.0 % 09/08/2024 5:00 AM EDT [facility] MCV 100.8(H) 80.0 - 100.0 fL 09/08/2024 5:00 AM EDT [facility] MCH 36.1(H) 27.0 - 33.0 pg 09/08/2024 5:00 AM EDT [facility] MCHC 35.8 32.0 - 36.0 g/dL 09/08/2024 5:00 AM EDT [facility] RDW 23.4(H) 11.0 - 15.0 % 09/08/2024 5:00 AM EDT [facility] Platelets 43(L) 140 - 400 10E3/uL 09/08/2024 5:00 AM EDT [facility] Comment: CNV Specimen checked for clots. None detected. MPV 8.8 7.5 - 11.5 fL 09/08/2024 5:00 AM EDT [facility] Whole Blood 09/08/2024 4:05 AM EDT 09/08/2024 4:20 AM EDT us Azalea Hughes DO LAB BLOOD ORDERABLES Final Res ult [facility] [address] * (ABNORMAL) Renal Function Panel w/EGFR (09/07/2024 3:36 PM EDT) Sodium 139 133 - 146 mmol/L 09/07/2024 4:10 PM EDT [facility] Potassium 3.4(L) 3.5 - 5.3 mmol/L 09/07/2024 4:10 PM EDT [facility] Chloride 112(H) 98 - 110 mmol/L 09/07/2024 4:10 PM EDT [facility] CO2 18(L) 21 - 33 mmol/L 09/07/2024 4:10 PM EDT [facility] Anion Gap 9 3 - 16 mmol/L 09/07/2024 4:10 PM EDT [facility] BUN 34(H) 7 - 25 mg/dL 09/07/2024 4:10 PM EDT [facility] Creatinine 2.40(H) 0.60 - 1.30 mg/dL 09/07/2024 4:10 PM EDT [facility] Glucose 125(H) 70 - 100 mg/dL 09/07/2024 4:10 PM EDT [facility] Calcium 8.5(L) 8.6 - 10.3 mg/dL 09/07/2024 4:10 PM EDT [facility] Phosphorus 2.0(L) 2.1 - 4.7 mg/dL 09/07/2024 4:10 PM EDT [facility] Albumin 3.6 3.5 - 5.7 g/dL 09/07/2024 4:10 PM EDT [facility] Osmolality, Calculated 297 278 - 305 mOsm/kg 09/07/2024 4:10 PM EDT [facility] EGFR 34 09/07/2024 4:10 PM EDT [facility] Comment:As of 2021, the [...] DO LAB BLOOD ORDERABLES Final Res ult [facility] [address] * (ABNORMAL) Protime-INR, AM (09/07/2024 3:42 AM [...] 3:42 AM EDT 09/07/2024 3:50 AM EDT us Azalea Hughes DO LAB BLOOD ORDERABLES Final Res ult [facility] [address] * (ABNORMAL) Hepatic Function Panel, AM (09/07/2024 3:42 AM EDT) Total Bilirubin 18.9(H) 0.0 - 1.5 mg/dL 09/07/2024 5:37 AM EDT [facility] Bilirubin, Direct 9.8(H) 0.0 - 0.4 mg/dL 09/07/2024 5:37 AM EDT [facility] AST 47(H) 13 - 39 U/L 09/07/2024 5:37 AM EDT [facility] ALT 27 7 - 52 U/L 09/07/2024 5:37 AM EDT [facility] Alkaline Phosphatase 104 36 - 125 U/L 09/07/2024 5:37 AM EDT [facility] Total Protein 4.9(L) 6.4 - 8.9 g/dL 09/07/2024 5:37 AM EDT [facility] Albumin 3.5 3.5 - 5.7 g/dL 09/07/2024 5:37 AM EDT [facility] Bilirubin, Indirect 9.1(H) 0.0 - 1.1 mg/dL 09/07/2024 5:37 AM EDT [facility] Plasma 09/07/2024 3:42 AM EDT 09/07/2024 3:54 AM EDT [facility] LAB BLOOD ORDERABLES Final Res ult [facility] [address] [facility]. [address] * Magnesium (09/07/2024 3:42 AM EDT) Magnesium 1.7 1.5 - 2.5 mg/dL 09/07/2024 5:37 AM EDT [facility] Plasma 09/07/2024 3:42 AM EDT 09/07/2024 3:54 AM EDT [facility] LAB BLOOD ORDERABLES Final Res ult Performing Organization Address [facility] [facility] Co de Phone Number [facility] [address] * (ABNORMAL) Renal Function Panel w/EGFR (09/07/2024 3:42 AM EDT) Sodium 137 133 - 146 mmol/L 09/07/2024 5:37 AM EDT [facility] Potassium 3.2(L) 3.5 - 5.3 mmol/L 09/07/2024 5:37 AM EDT [facility] Chloride 111(H) 98 - 110 mmol/L 09/07/2024 5:37 AM EDT [facility] CO2 15(L) 21 - 33 mmol/L 09/07/2024 5:37 AM EDT [facility] Anion Gap 11 3 - 16 mmol/L 09/07/2024 5:37 AM EDT [facility] BUN 36(H) 7 - 25 mg/dL 09/07/2024 5:37 AM EDT [facility] Creatinine 2.60(H) 0.60 - 1.30 mg/dL 09/07/2024 5:37 AM EDT [facility] Glucose 150(H) 70 - 100 mg/dL 09/07/2024 5:37 AM EDT [facility] Calcium 8.3(L) 8.6 - 10.3 mg/dL 09/07/2024 5:37 AM EDT [facility] Phosphorus 1.9(L) 2.1 - 4.7 mg/dL 09/07/2024 5:37 AM EDT [facility] Albumin 3.5 3.5 - 5.7 g/dL 09/07/2024 5:37 AM EDT [facility] Osmolality, Calculated 295 278 - 305 mOsm/kg 09/07/2024 5:37 AM EDT [facility] EGFR 31 09/07/2024 5:37 AM EDT [facility] Comment:As of 2021, the [...] DO LAB BLOOD ORDERABLES Final Res ult [facility] [address] [place] [address], [facility] * (ABNORMAL) CBC (09/07/2024 3:42 AM EDT) WBC 4.0 3.8 - 10.8 10E3/uL 09/07/2024 4:09 AM EDT [facility] RBC 2.06(L) 4.20 - 5.80 10E6/uL 09/07/2024 4:09 AM EDT [facility] Hemoglobin 7.4(L) 13.2 - 17.1 g/dL 09/07/2024 4:09 AM EDT [facility] Hematocrit 20.7(L) 38.5 - 50.0 % 09/07/2024 4:09 AM EDT [facility] MCV 100.2(H) 80.0 - 100.0 fL 09/07/2024 4:09 AM EDT [facility] MCH 35.8(H) 27.0 - 33.0 pg 09/07/2024 4:09 AM EDT [facility] MCHC 35.7 32.0 - 36.0 g/dL 09/07/2024 4:09 AM EDT [facility] RDW 22.4(H) 11.0 - 15.0 % 09/07/2024 4:09 AM EDT [facility] Platelets 40(L) 140 - 400 10E3/uL 09/07/2024 4:09 AM EDT [facility] Comment: CNV Specimen checked for clots. None detected. MPV 8.6 7.5 - 11.5 fL 09/07/2024 4:09 AM EDT [facility] Whole Blood 09/07/2024 3:42 AM EDT 09/07/2024 3:50 AM EDT us Azalea Hughes DO LAB BLOOD ORDERABLES Final Res ult [facility] [address] * (ABNORMAL) CBC (09/06/2024 4:37 PM EDT) WBC 5.1 3.8 - 10.8 10E3/uL 09/06/2024 5:19 PM EDT [facility] RBC 2.32(L) 4.20 - 5.80 10E6/uL 09/06/2024 5:19 PM EDT [facility] Hemoglobin 8.3(L) 13.2 - 17.1 g/dL 09/06/2024 5:19 PM EDT [facility] Hematocrit 23.3(L) 38.5 - 50.0 % 09/06/2024 5:19 PM EDT [facility] MCV 100.4(H) 80.0 - 100.0 fL 09/06/2024 5:19 PM EDT [facility] MCH 35.8(H) 27.0 - 33.0 pg 09/06/2024 5:19 PM EDT [facility] MCHC 35.7 32.0 - 36.0 g/dL 09/06/2024 5:19 PM EDT [facility] RDW 22.7(H) 11.0 - 15.0 % 09/06/2024 5:19 PM EDT [facility] Platelets 45(L) 140 - 400 10E3/uL 09/06/2024 5:19 PM EDT [facility] Comment:CNV MPV 8.1 7.5 - 11.5 fL 09/06/2024 5:19 PM EDT [facility] Whole Blood 09/06/2024 4:37 PM EDT 09/06/2024 4:45 PM EDT us Azalea Hughes DO LAB BLOOD ORDERABLES Final Res ult [facility] [address] [id number] * (ABNORMAL) Renal Function Panel w/EGFR (09/06/2024 4:37 PM EDT) Sodium 137 133 - 146 mmol/L 09/06/2024 5:17 PM EDT [facility] Potassium 3.2(L) 3.5 - 5.3 mmol/L 09/06/2024 5:17 PM EDT [facility] Chloride 109 98 - 110 mmol/L 09/06/2024 5:17 PM EDT [facility] CO2 17(L) 21 - 33 mmol/L 09/06/2024 5:17 PM EDT [facility] Anion Gap 11 3 - 16 mmol/L 09/06/2024 5:17 PM EDT [facility] BUN 37(H) 7 - 25 mg/dL 09/06/2024 5:17 PM EDT [facility] Creatinine 2.66(H) 0.60 - 1.30 mg/dL 09/06/2024 5:17 PM EDT [facility] Glucose 108(H) 70 - 100 mg/dL 09/06/2024 5:17 PM EDT [facility] Calcium 8.7 8.6 - 10.3 mg/dL 09/06/2024 5:17 PM EDT [facility] Phosphorus 2.2 2.1 - 4.7 mg/dL 09/06/2024 5:17 PM EDT [facility] Albumin 3.9 3.5 - 5.7 g/dL 09/06/2024 5:17 PM EDT [facility] Osmolality, Calculated 293 278 - 305 mOsm/kg 09/06/2024 5:17 PM EDT [facility] EGFR 30 09/06/2024 5:17 PM EDT [facility] Comment:As of 2021, the [...] DO LAB BLOOD ORDERABLES Final Res ult [facility] [address] [place] [address], [facility] * (ABNORMAL) Hepatic Function Panel, AM (09/06/2024 4:30 AM EDT) Total Bilirubin 21.3(H) 0.0 - 1.5 mg/dL 09/06/2024 5:40 AM EDT [facility] Bilirubin, Direct 14.43(H) 0.00 - 0.40 mg/dL 09/06/2024 5:40 AM EDT [facility] AST 46(H) 13 - 39 U/L 09/06/2024 5:40 AM EDT [facility] ALT 25 7 - 52 U/L 09/06/2024 5:40 AM EDT [facility] Alkaline Phosphatase 85 36 - 125 U/L 09/06/2024 5:40 AM EDT [facility] Total Protein 5.0(L) 6.4 - 8.9 g/dL 09/06/2024 5:40 AM EDT [facility] Albumin 3.7 3.5 - 5.7 g/dL 09/06/2024 5:40 AM EDT [facility] Bilirubin, Indirect 6.87(H) 0.00 - 1.10 mg/dL 09/06/2024 5:40 AM EDT [facility] Plasma 09/06/2024 4:30 AM EDT 09/06/2024 5:03 AM EDT us Azalea Hughes DO LAB BLOOD ORDERABLES Final Res ult [facility] [address] [place] [address], [facility] * (ABNORMAL) Protime-INR, AM (09/06/2024 4:30 AM EDT) Protime 25.3(H) 12.1 - 15.1 seconds 09/06/2024 5:26 AM EDT [facility] INR 2.2(H) 0.9 - 1.1 09/06/2024 5:26 AM EDT [facility] Comment: RECOMMENDED THERAPEUTIC RANGES USING INR : Stable oral anticoagulant therapy: 2.0 - 3.0 Mechanical prosthetic heart valve: 2.5 - 3.5 Recurrent acute myocardial infarction: 2.5 - 3.5 Plasma 09/06/2024 4:30 AM EDT 09/06/2024 5:02 AM EDT Azalea Hughes LAB BLOOD ORDERABLES Final Res ult [facility] [address] [facility]. [address] * Magnesium (09/06/2024 4:30 AM EDT) Magnesium 1.8 1.5 - 2.5 mg/dL 09/06/2024 5:40 AM EDT [facility] Plasma 09/06/2024 4:30 AM EDT 09/06/2024 5:03 AM EDT Azalea Hughes LAB BLOOD ORDERABLES Final Res ult [facility] [address] [facility]. [address] * (ABNORMAL) Renal Function Panel w/EGFR (09/06/2024 4:30 AM EDT) Sodium 137 133 - 146 mmol/L 09/06/2024 5:29 AM EDT [facility] Potassium 3.1(L) 3.5 - 5.3 mmol/L 09/06/2024 5:29 AM EDT [facility] Chloride 109 98 - 110 mmol/L 09/06/2024 5:29 AM EDT [facility] CO2 17(L) 21 - 33 mmol/L 09/06/2024 5:29 AM EDT [facility] Anion Gap 11 3 - 16 mmol/L 09/06/2024 5:29 AM EDT [facility] BUN 40(H) 7 - 25 mg/dL 09/06/2024 5:29 AM EDT [facility] Creatinine 2.70(H) 0.60 - 1.30 mg/dL 09/06/2024 5:29 AM EDT [facility] Glucose 122(H) 70 - 100 mg/dL 09/06/2024 5:29 AM EDT [facility] Calcium 8.6 8.6 - 10.3 mg/dL 09/06/2024 5:29 AM EDT [facility] Phosphorus 2.0(L) 2.1 - 4.7 mg/dL 09/06/2024 5:40 AM EDT [facility] Albumin 3.7 3.5 - 5.7 g/dL 09/06/2024 5:40 AM EDT [facility] Osmolality, Calculated 295 278 - 305 mOsm/kg 09/06/2024 5:29 AM EDT [facility] EGFR 29 09/06/2024 5:29 AM EDT [facility] Comment:As of 2021, the [...] DO LAB BLOOD ORDERABLES Final Res ult [facility] [address] * (ABNORMAL) CBC (09/06/2024 4:30 AM EDT) WBC 4.3 3.8 - 10.8 10E3/uL 09/06/2024 6:03 AM EDT [facility] RBC 2.28(L) 4.20 - 5.80 10E6/uL 09/06/2024 6:03 AM EDT [facility] Hemoglobin 8.4(L) 13.2 - 17.1 g/dL 09/06/2024 6:03 AM EDT [facility] Hematocrit 22.8(L) 38.5 - 50.0 % 09/06/2024 6:03 AM EDT [facility] MCV 99.9 80.0 - 100.0 fL 09/06/2024 6:03 AM EDT [facility] MCH 36.9(H) 27.0 - 33.0 pg 09/06/2024 6:03 AM EDT [facility] MCHC 36.9(H) 32.0 - 36.0 g/dL 09/06/2024 6:03 AM EDT [facility] RDW 23.2(H) 11.0 - 15.0 % 09/06/2024 6:03 AM EDT [facility] Platelets 41(L) 140 - 400 10E3/uL 09/06/2024 6:03 AM EDT [facility] Comment: Specimen checked for clots. None detected. Slide Reviewed for PLT Clumps. None Seen. MPV 8.9 7.5 - 11.5 fL 09/06/2024 6:03 AM EDT [facility] Whole Blood 09/06/2024 4:30 AM EDT 09/06/2024 5:03 AM EDT us Azalea Hughes DO LAB BLOOD ORDERABLES Final Res ult [facility] [address] [place] [address], [facility] * (ABNORMAL) Protime-INR, AM (09/05/2024 7:24 AM EDT) Protime 27.8(H) 12.1 - 15.1 seconds 09/05/2024 8:18 AM EDT [facility] INR 2.5(H) 0.9 - 1.1 09/05/2024 8:18 AM EDT [facility] Comment: RECOMMENDED THERAPEUTIC RANGES USING INR : Stable oral anticoagulant therapy: 2.0 - 3.0 Mechanical prosthetic heart valve: 2.5 - 3.5 Recurrent acute myocardial infarction: 2.5 - 3.5 Plasma 09/05/2024 7:24 AM EDT 09/05/2024 7:38 AM EDT us Kiet Ramirez MD LAB BLOOD ORDERABLES Denisse l Result [facility] [address] * (ABNORMAL) Hepatic Function Panel, AM (09/05/2024 7:24 AM EDT) Total Bilirubin 23.0(H) 0.0 - 1.5 mg/dL 09/05/2024 8:25 AM EDT [facility] Bilirubin, Direct 15.57(H) 0.00 - 0.40 mg/dL 09/05/2024 8:25 AM EDT [facility] AST 41(H) 13 - 39 U/L 09/05/2024 8:25 AM EDT [facility] ALT 28 7 - 52 U/L 09/05/2024 8:25 AM EDT [facility] Alkaline Phosphatase 89 36 - 125 U/L 09/05/2024 8:25 AM EDT [facility] Total Protein 4.3(L) 6.4 - 8.9 g/dL 09/05/2024 8:25 AM EDT [facility] Albumin 3.3(L) 3.5 - 5.7 g/dL 09/05/2024 8:25 AM EDT [facility] Bilirubin, Indirect 7.43(H) 0.00 - 1.10 mg/dL 09/05/2024 8:25 AM EDT [facility] Plasma 09/05/2024 7:24 AM EDT 09/05/2024 7:38 AM EDT Kiet Ramirez MD LAB BLOOD ORDERABLES Denisse l Result [facility] [address] * Phosphorus, AM (09/05/2024 7:24 AM EDT) Phosphorus 2.1 2.1 - 4.7 mg/dL 09/05/2024 8:25 AM EDT [facility] Plasma 09/05/2024 7:24 AM EDT 09/05/2024 7:38 AM EDT Kiet Ramirez MD LAB BLOOD ORDERABLES Denisse l Result [facility] [address] * Magnesium, AM (09/05/2024 7:24 AM EDT) Magnesium 2.0 1.5 - 2.5 mg/dL 09/05/2024 8:25 AM EDT [facility] Plasma 09/05/2024 7:24 AM EDT 09/05/2024 7:38 AM EDT Kiet Ramirez MD LAB BLOOD ORDERABLES Denisse l Result Performing Organization Address [facility] de Phone Number [facility] [address] * (ABNORMAL) Basic Metabolic panel, AM (09/05/2024 7:24 AM EDT) Sodium 134 133 - 146 mmol/L 09/05/2024 8:25 AM EDT [facility] Potassium 3.6 3.5 - 5.3 mmol/L 09/05/2024 8:25 AM EDT [facility] Chloride 107 98 - 110 mmol/L 09/05/2024 8:25 AM EDT [facility] CO2 19(L) 21 - 33 mmol/L 09/05/2024 8:25 AM EDT [facility] Anion Gap 8 3 - 16 mmol/L 09/05/2024 8:25 AM EDT [facility] BUN 42(H) 7 - 25 mg/dL 09/05/2024 8:25 AM EDT [facility] Creatinine 2.92(H) 0.60 - 1.30 mg/dL 09/05/2024 8:25 AM EDT [facility] Glucose 108(H) 70 - 100 mg/dL 09/05/2024 8:25 AM EDT [facility] Calcium 8.6 8.6 - 10.3 mg/dL 09/05/2024 8:25 AM EDT [facility] Osmolality, Calculated 289 278 - 305 mOsm/kg 09/05/2024 8:25 AM EDT [facility] EGFR 27 09/05/2024 8:25 AM EDT [facility] Comment:As of 2021, the [...] MD LAB BLOOD ORDERABLES Denisse valle Result [facility] [address] [place] [address], [facility] * (ABNORMAL) CBC, AM (09/05/2024 7:24 AM EDT) WBC 4.6 3.8 - 10.8 10E3/uL 09/05/2024 8:04 AM EDT [facility] RBC 2.11(L) 4.20 - 5.80 10E6/uL 09/05/2024 8:04 AM EDT [facility] Hemoglobin 7.6(L) 13.2 - 17.1 g/dL 09/05/2024 8:04 AM EDT [facility] Hematocrit 21.1(L) 38.5 - 50.0 % 09/05/2024 8:04 AM EDT [facility] MCV 99.7 80.0 - 100.0 fL 09/05/2024 8:04 AM EDT [facility] MCH 35.9(H) 27.0 - 33.0 pg 09/05/2024 8:04 AM EDT [facility] MCHC 36.0 32.0 - 36.0 g/dL 09/05/2024 8:04 AM EDT [facility] RDW 22.8(H) 11.0 - 15.0 % 09/05/2024 8:04 AM EDT [facility] Platelets 37(L) 140 - 400 10E3/uL 09/05/2024 8:04 AM EDT [facility] Comment: CNV Specimen checked for clots. None detected. MPV 9.0 7.5 - 11.5 fL 09/05/2024 8:04 AM EDT [facility] Whole Blood 09/05/2024 7:24 AM EDT 09/05/2024 7:38 AM EDT us Kiet Ramirez MD LAB BLOOD ORDERABLES Denisse l Result Performing Organization Address City/[facility]/ZIP Co de Phone Number [facility] [address] * ECG 12 lead (MUSE) (09/05/2024 4:57 AM EDT) 09/05/2024 4:57 AM EDT Narrative MUSE - 09/06/2024 7:31 AM EDT Ventricular Rate: 78 BPM Atrial Rate: 78 BPM P-R Interval: 196 ms QRS Duration: 100 ms QT: 362 ms QTc: 412 ms P Mazama: 69 degrees R Mazama: -23 degrees T Mazama: 10 degrees Diagnosis Line: NORMAL SINUS RHYTHM ^ NONSPECIFIC T WAVE CHANGE ^ ABNORMAL ECG ^ ^ Confirmed by MD AKERS JULIANE ([id number]) on 09/06/2024 7:31:28 AM us Kathie Sanchez [...] - 2.2 mmol/L 09/04/2024 5:27 PM EDT [facility] Plasma 09/04/2024 4:21 PM EDT 09/04/2024 4:30 PM EDT Kiet Ramirez MD LAB BLOOD ORDERABLES Denisse l Result Performing Organization Address City/[facility]/ZIP Co de Phone Number [facility] [address] [facility]. [address] * Magnesium (09/04/2024 4:21 PM EDT) Magnesium 2.4 1.5 - 2.5 mg/dL 09/04/2024 4:47 PM EDT [facility] Plasma 09/04/2024 4:21 PM EDT 09/04/2024 4:24 PM EDT Kiet Ramirez MD LAB BLOOD ORDERABLES Denisse l Result [facility] [address] * (ABNORMAL) Basic Metabolic Panel (09/04/2024 4:21 PM EDT) Sodium 134 133 - 146 mmol/L 09/04/2024 4:47 PM EDT [facility] Potassium 3.5 3.5 - 5.3 mmol/L 09/04/2024 4:47 PM EDT [facility] Chloride 104 98 - 110 mmol/L 09/04/2024 4:47 PM EDT [facility] CO2 20(L) 21 - 33 mmol/L 09/04/2024 4:47 PM EDT [facility] Anion Gap 10 3 - 16 mmol/L 09/04/2024 4:47 PM EDT [facility] BUN 43(H) 7 - 25 mg/dL 09/04/2024 4:47 PM EDT [facility] Creatinine 3.31(H) 0.60 - 1.30 mg/dL 09/04/2024 4:47 PM EDT [facility] Glucose 142(H) 70 - 100 mg/dL 09/04/2024 4:47 PM EDT [facility] Calcium 9.1 8.6 - 10.3 mg/dL 09/04/2024 4:47 PM EDT [facility] Osmolality, Calculated 291 278 - 305 mOsm/kg 09/04/2024 4:47 PM EDT [facility] EGFR 23 09/04/2024 4:47 PM EDT [facility] Comment:As of 2021, the [...] MD LAB BLOOD ORDERABLES Denisse valle Result [facility] [address] [place] [address], [facility] * IR Paracentesis incl imaging guide (09/04/2024 [...] proceed with D/T paracentesis Shelia Logan CNP, [employer] Procedure and Findings: The procedure was performed [...] time ultrasound guidance, a 10 cm, 5-F Yueh Centesis catheter was placed into the right [...] Will proceed withD/T paracentesis Shelia Logan CNP, [employer] Procedure and Findings: The procedure was performed [...] time ultrasound guidance, a 10 cm, 5-F Yueh Centesis catheterwas placed into the right lower [...] 3:28 PM EDT us Kiet Ramirez MD [facility] IR ORDERABLES Final R esult * Fluid Creatinine (09/04/2024 11:01 AM EDT) Creat, Fluid 3.17 mg/dL 09/04/2024 6:15 PM EDT [facility] Comment:Reference range not established for this test. Abdominal Fluid ABDOMEN / Unknown 025 11:01 AM EDT 09/04/2024 5:25 PM EDT Narrative [facility] - 09/04/2024 6:15 PM EDT This assay has been modified from the concessions manager's specifications and has been validated with performance characteristics determined by [facility] in accordance with federal regulations under the Clinical Laboratory Act Amendment of 1988. The modification has not been approved by the FDA which has determined that such approval is not necessary. The test is for clinical purposes and should not be regarded as investigational or for research use. Kiet Ramirez MD BODY FLUIDS AND STOOLS OR DERABLES Final Result Performing Organization Address [facility] de Phone Number [facility] [address] [place] [address] * Albumin, fluid (09/04/2024 11:01 AM EDT) Albumin, Fluid <1.5 g/dL 09/04/2024 6:15 PM EDT [facility] Comment:Reference range not established for this test. Abdominal Fluid ABDOMEN / Unknown 025 11:01 AM EDT 09/04/2024 5:25 PM EDT Narrative [facility] - 09/04/2024 6:15 PM EDT This assay has been modified from the concessions manager's specifications and has been validated with performance characteristics determined by [facility] in accordance with federal regulations [...] OR DERABLES Final Result Performing Organization Address [facility] de Phone Number [facility] [address] [place] [address]. [address] * Protein, Body fluid (09/04/2024 11:01 AM EDT) Protein, Fluid <3.0 g/dL 09/04/2024 6:15 PM EDT [facility] Comment:Reference range not established for this test. Ascitic Fluid ABDOMEN / Unknown 11:01 AM EDT 09/04/2024 5:25 PM EDT Narrative [facility] - 09/04/2024 6:15 PM EDT This assay has been modified from the concessions manager's specifications and has been validated with performance characteristics determined by [facility] in accordance with federal regulations [...] OR DERABLES Final Result Performing Organization Address City/[facility]/ZIP Co de Phone Number [facility] [address] [facility]. [address] * Body Fluid Culture plus Stain (09/04/2024 11:01 AM EDT) Gram Stain Result Cytospin Results: [facility] Gram Stain Result Polymorphonuclear Leukocytes Seen; [facility] Gram Stain Result No Organisms Seen; [facility] Culture Result No Growth After 5 Days [facility] Fluid ABDOMEN / Unknown 09/04/2024 11:01 AM EDT 09/04/2024 5:25 PM EDT Kiet Ramirez MD MICROBIOLOGY - GENERAL OR DERABLES Final Result Performing Organization Address [facility] Co de Phone Number [facility] [address] [facility]. [address] * (ABNORMAL) Body fluid cell count (09/04/2024 11:01 AM EDT) Color, Fluid Yellow(A) Colorless, Pale Yellow 09/04/2024 6:54 PM EDT [facility] Clarity, Fluid Hazy 09/04/2024 6:54 PM EDT [facility] Neutrophil %, Fluid 85 % 09/04/2024 6:54 PM EDT [facility] Lymphocytes %, Fluid 3 % 09/04/2024 6:54 PM EDT [facility] Macrophage %, Fluid 12 % 09/04/2024 6:54 PM EDT [facility] RBC, Fluid 840 /uL 09/04/2024 6:54 PM EDT [facility] Total Nucleated Cells, Fluid 2,276 /uL 09/04/2024 6:54 PM EDT [facility] Comment:Total Nucleated Cell s represent WBCs and other nucleated cells in the fluid such as lining cells. Ascitic Fluid ABDOMEN / Unknown 11:01 AM EDT 09/04/2024 5:25 PM EDT Kiet Ramirez MD BODY FLUIDS AND STOOLS OR DERABLES Final Result Performing Organization Address [facility] Co de Phone Number [facility] [address] [facility]. [address] * AFP Tumor Marker (09/04/2024 10:32 AM EDT) Pathologist [facility] AFP-Tumor Marker 1.9 0.0 - 9.0 ng/mL 09/04/2024 2:53 PM EDT [facility] Serum 09/04/2024 10:3 2 AM EDT 09/04/2024 2:35 PM EDT Narrative [facility] - 09/04/2024 2:53 PM EDT The testing method for AFP is a chemiluminescent immunoassay manufactured by [employer] Concentrations of AFP obtained by different assay methods or kits may vary and cannot be used interchangeably. AFP results cannot be interpreted as absolute evidence of the presence or absence of malignant disease. Kiet Ramirez MD LAB BLOOD ORDERABLES Denisse l Result Performing Organization Address [facility] Co de Phone Number [facility] [address] * Lipase (09/04/2024 5:22 AM EDT) Pathologist [facility] Lipase 40 4 - 82 U/L 09/04/2024 11:41 AM EDT [facility] Plasma 09/04/2024 5:22 AM EDT 09/04/2024 11:23 AM EDT Kiet Ramirez MD LAB BLOOD ORDERABLES Denisse l Result Performing Organization Address [facility] Co de Phone Number [facility] [address] [facility]. [address] * Calcium Free, Serum (09/04/2024 5:22 AM EDT) Free Calcium, Ser 4.93 4.40 - 5.40 mg/dL 09/04/2024 5:44 AM EDT [facility] Comment:Free calcium levels vary inversely with pH by approximately 5% for each 0.1 unit of pH change. Assay results have been normalized to pH = 7.40. Serum 09/04/2024 5:22 AM EDT 09/04/2024 5:27 AM EDT Narrative [facility] - 09/04/2024 5:44 AM EDT This test has been developed and its performance characteristics determined by [facility] which is certified under the [...] ORDERABLES Denisse l Result Performing Organization Address [place]/[facility] de Phone Number [facility] [address] * (ABNORMAL) Protime-INR, AM (09/04/2024 5:22 AM EDT) Protime 32.0(H) 12.1 - 15.1 seconds 09/04/2024 6:03 AM EDT [facility] INR 3.0(H) 0.9 - 1.1 09/04/2024 6:03 AM EDT [facility] Comment: RECOMMENDED THERAPEUTIC RANGES USING INR : Stable oral anticoagulant therapy: 2.0 - 3.0 Mechanical prosthetic heart valve: 2.5 - 3.5 Recurrent acute myocardial infarction: 2.5 - 3.5 Plasma 09/04/2024 5:22 AM EDT 09/04/2024 5:38 AM EDT Kiet Ramirez MD LAB BLOOD ORDERABLES Denisse l Result [facility] [address] * Phosphorus, AM (09/04/2024 5:22 AM EDT) Phosphorus 2.2 2.1 - 4.7 mg/dL 09/04/2024 6:39 AM EDT [facility] Plasma 09/04/2024 5:22 AM EDT 09/04/2024 5:27 AM EDT Kiet Ramirez MD LAB BLOOD ORDERABLES Denisse l Result Performing Organization Address [facility] Co de Phone Number [facility] [address] [facility]. [address] * Magnesium, AM (09/04/2024 5:22 AM EDT) Magnesium 2.4 1.5 - 2.5 mg/dL 09/04/2024 6:39 AM EDT [facility] Plasma 09/04/2024 5:22 AM EDT 09/04/2024 5:27 AM EDT us Kiet Ramirez MD LAB BLOOD ORDERABLES Denisse l Result Performing Organization Address [facility] Co de Phone Number [facility] [address] [facility]. [address] * (ABNORMAL) Hepatic Function Panel, AM (09/04/2024 5:22 AM EDT) Total Bilirubin 25.5(H) 0.0 - 1.5 mg/dL 09/04/2024 6:39 AM EDT [facility] [facility] AST 43(H) 13 - 39 U/L 09/04/2024 6:39 AM EDT [facility] ALT 30 7 - 52 U/L 09/04/2024 6:39 AM EDT [facility] Alkaline Phosphatase 75 36 - 125 U/L 09/04/2024 6:39 AM EDT [facility] Total Protein 4.6(L) 6.4 - 8.9 g/dL 09/04/2024 6:39 AM EDT [facility] Albumin 3.2(L) 3.5 - 5.7 g/dL 09/04/2024 6:39 AM EDT [facility] Bilirubin, Direct 17.39(H) 0.00 - 0.40 mg/dL 09/04/2024 8:24 AM EDT [facility] Bilirubin, Indirect 8.11(H) 0.00 - 1.10 mg/dL 09/04/2024 8:24 AM EDT [facility] Plasma 09/04/2024 5:22 AM EDT 09/04/2024 5:27 AM EDT us Kiet Ramirez MD LAB BLOOD ORDERABLES Denisse valle Result [facility] [address] [place] [address], [facility] * (ABNORMAL) Basic Metabolic panel, AM (09/04/2024 5:22 AM EDT) Sodium 132(L) 133 - 146 mmol/L 09/04/2024 5:56 AM EDT [facility] Potassium 3.7 3.5 - 5.3 mmol/L 09/04/2024 5:56 AM EDT [facility] Chloride 103 98 - 110 mmol/L 09/04/2024 5:56 AM EDT [facility] CO2 18(L) 21 - 33 mmol/L 09/04/2024 5:56 AM EDT [facility] Anion Gap 11 3 - 16 mmol/L 09/04/2024 5:56 AM EDT [facility] BUN 41(H) 7 - 25 mg/dL 09/04/2024 5:56 AM EDT [facility] Creatinine 3.21(H) 0.60 - 1.30 mg/dL 09/04/2024 5:56 AM EDT [facility] Glucose 162(H) 70 - 100 mg/dL 09/04/2024 5:56 AM EDT [facility] Calcium 8.5(L) 8.6 - 10.3 mg/dL 09/04/2024 5:56 AM EDT [facility] Osmolality, Calculated 288 278 - 305 mOsm/kg 09/04/2024 5:56 AM EDT [facility] EGFR 24 09/04/2024 5:56 AM EDT [facility] Comment:As of 2021, the [...] MD LAB BLOOD ORDERABLES Denisse valle Result [facility] [address] * (ABNORMAL) CBC, AM (09/04/2024 5:22 AM EDT) WBC 9.6 3.8 - 10.8 10E3/uL 09/04/2024 5:50 AM EDT [facility] RBC 2.35(L) 4.20 - 5.80 10E6/uL 09/04/2024 5:50 AM EDT [facility] Hemoglobin 8.5(L) 13.2 - 17.1 g/dL 09/04/2024 5:50 AM EDT [facility] Hematocrit 23.1(L) 38.5 - 50.0 % 09/04/2024 5:50 AM EDT [facility] MCV 98.6 80.0 - 100.0 fL 09/04/2024 5:50 AM EDT [facility] MCH 36.3(H) 27.0 - 33.0 pg 09/04/2024 5:50 AM EDT [facility] MCHC 36.8(H) 32.0 - 36.0 g/dL 09/04/2024 5:50 AM EDT [facility] RDW 23.1(H) 11.0 - 15.0 % 09/04/2024 5:50 AM EDT [facility] Platelets 41(L) 140 - 400 10E3/uL 09/04/2024 5:50 AM EDT [facility] Comment: CNV Specimen checked for clots. None detected. MPV 9.5 7.5 - 11.5 fL 09/04/2024 5:50 AM EDT [facility] Whole Blood 09/04/2024 5:22 AM EDT 09/04/2024 5:38 AM EDT Kiet Ramirez MD LAB BLOOD ORDERABLES Denisse l Result Performing Organization Address City/[facility]/ZIP Co de Phone Number [facility] [address] * Magnesium (09/04/2024 2:20 AM EDT) Magnesium 2.5 1.5 - 2.5 mg/dL 09/04/2024 2:54 AM EDT [facility] Plasma 09/04/2024 2:20 AM EDT 09/04/2024 2:39 AM EDT Kiet Ramirez MD LAB BLOOD ORDERABLES Denisse l Result [facility] [address] * (ABNORMAL) Basic Metabolic Panel (09/04/2024 2:20 AM EDT) Sodium 133 133 - 146 mmol/L 09/04/2024 2:54 AM EDT [facility] Potassium 3.8 3.5 - 5.3 mmol/L 09/04/2024 2:54 AM EDT [facility] Chloride 103 98 - 110 mmol/L 09/04/2024 2:54 AM EDT [facility] CO2 18(L) 21 - 33 mmol/L 09/04/2024 2:54 AM EDT [facility] Anion Gap 12 3 - 16 mmol/L 09/04/2024 2:54 AM EDT [facility] BUN 41(H) 7 - 25 mg/dL 09/04/2024 2:54 AM EDT [facility] Creatinine 3.36(H) 0.60 - 1.30 mg/dL 09/04/2024 2:54 AM EDT [facility] Glucose 145(H) 70 - 100 mg/dL 09/04/2024 2:54 AM EDT [facility] Calcium 9.0 8.6 - 10.3 mg/dL 09/04/2024 2:54 AM EDT [facility] Osmolality, Calculated 289 278 - 305 mOsm/kg 09/04/2024 2:54 AM EDT [facility] EGFR 23 09/04/2024 2:54 AM EDT [facility] Comment:As of 2021, the [...] MD LAB BLOOD ORDERABLES Denisse valle Result [facility] [address] [place] [address], [facility] * Magnesium (09/03/2024 9:50 PM EDT) Magnesium 2.5 1.5 - 2.5 mg/dL 09/03/2024 10:14 PM EDT [facility] Plasma 09/03/2024 9:50 PM EDT 09/03/2024 9:56 PM EDT Kiet Ramirez MD LAB BLOOD ORDERABLES Denisse valle Result [facility] [address] * (ABNORMAL) Basic Metabolic Panel (09/03/2024 9:50 PM EDT) Sodium 131(L) 133 - 146 mmol/L 09/03/2024 10:14 PM EDT [facility] Potassium 4.2 3.5 - 5.3 mmol/L 09/03/2024 10:14 PM EDT [facility] Chloride 102 98 - 110 mmol/L 09/03/2024 10:14 PM EDT [facility] CO2 17(L) 21 - 33 mmol/L 09/03/2024 10:14 PM EDT [facility] Anion Gap 12 3 - 16 mmol/L 09/03/2024 10:14 PM EDT [facility] BUN 41(H) 7 - 25 mg/dL 09/03/2024 10:14 PM EDT [facility] Creatinine 3.44(H) 0.60 - 1.30 mg/dL 09/03/2024 10:14 PM EDT [facility] Glucose 194(H) 70 - 100 mg/dL 09/03/2024 10:14 PM EDT [facility] Calcium 8.5(L) 8.6 - 10.3 mg/dL 09/03/2024 10:14 PM EDT [facility] Osmolality, Calculated 287 278 - 305 mOsm/kg 09/03/2024 10:14 PM EDT [facility] EGFR 22 09/03/2024 10:14 PM EDT [facility] Comment:As of 2021, the [...] ORDERABLES Denisse l Result Performing Organization Address [facility] Co de Phone Number [facility] [address] [facility]. [address] * (ABNORMAL) Magnesium (09/03/2024 6:16 PM EDT) Magnesium 2.6(H) 1.5 - 2.5 mg/dL 09/03/2024 6:47 PM EDT [facility] Plasma 09/03/2024 6:16 PM EDT 09/03/2024 6:27 PM EDT Kiet Ramirez MD LAB BLOOD ORDERABLES Denisse l Result Performing Organization Address [facility]/ZIP Co de Phone Number [facility] [address] [facility]. [address] * (ABNORMAL) Basic Metabolic Panel (09/03/2024 6:16 PM EDT) Sodium 132(L) 133 - 146 mmol/L 09/03/2024 6:47 PM EDT [facility] Potassium 4.1 3.5 - 5.3 mmol/L 09/03/2024 6:47 PM EDT [facility] Chloride 100 98 - 110 mmol/L 09/03/2024 6:47 PM EDT [facility] CO2 17(L) 21 - 33 mmol/L 09/03/2024 6:47 PM EDT [facility] Anion Gap 15 3 - 16 mmol/L 09/03/2024 6:47 PM EDT [facility] BUN 40(H) 7 - 25 mg/dL 09/03/2024 6:47 PM EDT [facility] Creatinine 3.44(H) 0.60 - 1.30 mg/dL 09/03/2024 6:47 PM EDT [facility] Glucose 115(H) 70 - 100 mg/dL 09/03/2024 6:47 PM EDT [facility] Calcium 9.0 8.6 - 10.3 mg/dL 09/03/2024 6:47 PM EDT [facility] Osmolality, Calculated 285 278 - 305 mOsm/kg 09/03/2024 6:47 PM EDT [facility] EGFR 22 09/03/2024 6:47 PM EDT [facility] Comment:As of 2021, the [...] MD LAB BLOOD ORDERABLES Denisse valle Result [facility] [address] [place] [address], [facility] * (ABNORMAL) Venous Blood Gas, Line/Syringe, STAT (09/03/2024 5:26 PM EDT) [facility] PH-Line Draw 7.32 7.32 - 7.42 09/03/2024 5:40 PM EDT [facility] PCO2-Line Draw 33(L) 41 - 51 mm Hg 09/03/2024 5:40 PM EDT [facility] PO2-Line Draw 32 25 - 40 mm Hg 09/03/2024 5:40 PM EDT [facility] HCO3-Line Draw 18(L) 24 - 28 mmol/L 09/03/2024 5:40 PM EDT [facility] CO2 Content-Line Draw 18(L) 25 - 29 mmol/L 09/03/2024 5:40 PM EDT [facility] Base Excess-Line Draw -8.2(L) -2.0 - 3.0 mmol/L 09/03/2024 5:40 PM EDT [facility] %HBO2-Line Draw 53.4 40.0 - 70.0 % 09/03/2024 5:40 PM EDT [facility] Carboxyhgb-Ludivina e Draw 1.4 % 09/03/2024 5:40 PM EDT [facility] Comment: CARBOXYHEMOGLOBIN (CO) REFERENCE RANGES: Non-Smokers: <2 % Smokers: <8 % TOXIC: >20 % Methemoglobin- Line Draw 0.7 0.0 - 1.5 % 09/03/2024 5:40 PM EDT [facility] Reduced Hemoglobin-Ludivina e Draw 44.5(H) 0.0 - 5.0 % 09/03/2024 5:40 PM EDT [facility] Venous, Line Draw 09/03/2024 5:26 PM EDT 09/03/2024 5:38 PM EDT us Kiet Ramirez MD LAB BLOOD ORDERABLES Denisse valle Result [facility] [address] [facility] [place] [address], [facility] * (ABNORMAL) CBC (09/03/2024 5:26 PM EDT) WBC 9.9 3.8 - 10.8 10E3/uL 09/03/2024 6:28 PM EDT [facility] RBC 2.35(L) 4.20 - 5.80 10E6/uL 09/03/2024 6:28 PM EDT [facility] Hemoglobin 8.4(L) 13.2 - 17.1 g/dL 09/03/2024 6:28 PM EDT [facility] Hematocrit 23.1(L) 38.5 - 50.0 % 09/03/2024 6:28 PM EDT [facility] MCV 98.3 80.0 - 100.0 fL 09/03/2024 6:28 PM EDT [facility] MCH 35.5(H) 27.0 - 33.0 pg 09/03/2024 6:28 PM EDT [facility] MCHC 36.2(H) 32.0 - 36.0 g/dL 09/03/2024 6:28 PM EDT [facility] RDW 22.8(H) 11.0 - 15.0 % 09/03/2024 6:28 PM EDT [facility] Platelets 42(L) 140 - 400 10E3/uL 09/03/2024 6:28 PM EDT [facility] Comment: _Platelets Appear Decreased Slide Reviewed for PLT Clumps. None Seen. Specimen checked for clots. None detected. Platelet Estimate Decreased 09/03/2024 6:28 PM EDT [facility] MPV 8.9 7.5 - 11.5 fL 09/03/2024 6:28 PM EDT [facility] Whole Blood 09/03/2024 5:26 PM EDT 09/03/2024 5:47 PM EDT Narrative [facility] - 09/03/2024 6:28 PM EDT Peripheral blood smear was scanned per review criteria approved by the laboratory medical lab tech instructor. us Kiet Ramirez MD LAB BLOOD ORDERABLES Denisse valle Result [facility] [address] [place] [id number], [facility] * MRSA/Staph aureus DNA ??? Diagnostic testing for pneumonia (09/03/2024 3:21 PM EDT) MRSA, PCR Negative Negative 09/03/2024 7:48 PM EDT [facility] Staph Aureus, PCR Negative Negative 09/03/2024 7:48 PM EDT [facility] Comment:Test method is a FDA approved amplified DNA assay. Nares Swab BOTH ANTERIOR NARES / Unknown 09/03/2024 3:21 PM EDT 09/03/2024 4:25 PM EDT Narrative [facility] - 09/03/2024 7:48 PM EDT Diagnosis of MRSA Pneumonia->Yes - Place [id number] (this order) Kiet Ramirez MD MICROBIOLOGY - GENERAL OR DERABLES Final Result [facility] [address] [place] [address], [facility] * (ABNORMAL) Urine Drug Screen without Confirmation, STAT (09/03/2024 3:21 PM EDT) Amphetamine, 500 ng/mL Cutoff Negative Negative 09/03/2024 4:17 PM EDT [facility] Barbiturates UR, 300 ng/mL Cutoff Negative Negative 09/03/2024 4:17 PM EDT [facility] Buprenorphine, 5 ng/mL Cutoff Negative Negative 09/03/2024 4:17 PM EDT [facility] Benzodiazepines UR, 300 ng/mL Cutoff Negative Negative 09/03/2024 4:17 PM EDT [facility] Cocaine UR, 300 ng/mL Cutoff Negative Negative 09/03/2024 4:17 PM EDT [facility] Methadone, UR, 300 ng/mL Cutoff Negative Negative 09/03/2024 4:17 PM EDT [facility] Opiates UR, 300 ng/mL Cutoff Presumptive Positive(A) Negative 09/03/2024 4:17 PM EDT [facility] Oxycodone, 100 ng/mL Cutoff Negative Negative 09/03/2024 4:17 PM EDT [facility] Tricyclic Antidepressants, 300 ng/mL Cutoff Negative Negative 09/03/2024 4:17 PM EDT [facility] Comment:This test has been d eveloped and its performance characteristics determined by [facility] which is certified under the [...] Cutoff Negative Negative 09/03/2024 4:17 PM EDT [facility] Comment:This is a screening method only and may be associated with false positive and/or false negative results. Results are not definitive without additional confirmatory testing by mass spectrometry. Fentanyl, 2 ng/mL Cutoff Negative Negative 09/03/2024 4:17 PM EDT [facility] Comment:This test has been d eveloped and its performance characteristics determined by [facility] which is certified under the [...] Ramirez MD URINE ORDERABLES Final Re sult [facility] [address] [address], [facility] * (ABNORMAL) Venous Blood Gas, Line/Syringe (09/03/2024 3:21 PM EDT) PH-Line Draw 7.24(L) 7.32 - 7.42 09/03/2024 3:30 PM EDT [facility] PCO2-Line Draw 37(L) 41 - 51 mm Hg 09/03/2024 3:30 PM EDT [facility] PO2-Line Draw 39 25 - 40 mm Hg 09/03/2024 3:30 PM EDT [facility] HCO3-Line Draw 16(L) 24 - 28 mmol/L 09/03/2024 3:30 PM EDT [facility] CO2 Content-Line Draw 17(L) 25 - 29 mmol/L 09/03/2024 3:30 PM EDT [facility] Base Excess-Line Draw -10.6(L) -2.0 - 3.0 mmol/L 09/03/2024 3:30 PM EDT [facility] %HBO2-Line Draw 62.6 40.0 - 70.0 % 09/03/2024 3:30 PM EDT [facility] Carboxyhgb-Ludivina e Draw 1.5 % 09/03/2024 3:30 PM EDT [facility] Comment: CARBOXYHEMOGLOBIN (CO) REFERENCE RANGES: Non-Smokers: <2 % Smokers: <8 % TOXIC: >20 % Methemoglobin- Line Draw 1.0 0.0 - 1.5 % 09/03/2024 3:30 PM EDT [facility] Reduced Hemoglobin-Ludivina e Draw 34.9(H) 0.0 - 5.0 % 09/03/2024 3:30 PM EDT [facility] Venous, Line Draw 09/03/2024 3:21 PM EDT 09/03/2024 3:27 PM EDT us Kiet Ramirez MD LAB BLOOD ORDERABLES Denisse l Result Performing Organization Address City/[facility]/ZIP Co de Phone Number [facility] [address] * Urea Nitrogen, Urine (09/03/2024 3:21 PM EDT) Urea Nitrogen, Ur 350 mg/dL 09/03/2024 4:12 PM EDT [facility] Comment:Reference range not established for this test. Urine 09/03/2024 3:21 PM EDT 09/03/2024 3:30 PM EDT Kiet Ramirez MD URINE ORDERABLES Final Re sult Performing Organization Address [facility]/ZIP Co de Phone Number [facility] [address] * Sodium, Urine, Random (09/03/2024 3:21 PM EDT) Sodium, Ur <10 mmol/L 09/03/2024 4:19 PM EDT [facility] Comment:Reference range not established for this test. Urine 09/03/2024 3:21 PM EDT 09/03/2024 3:30 PM EDT Kiet Ramirez MD URINE ORDERABLES Final Re sult Performing Organization Address [facility]/ZIP Co de Phone Number [facility] [address] [place] [address]. [address] * Potassium, Urine, Random (09/03/2024 3:21 PM EDT) Potassium Urine Random 23.0 mmol/L 09/03/2024 4:19 PM EDT [facility] Comment:Reference range not established for this test. Urine 09/03/2024 3:21 PM EDT 09/03/2024 3:30 PM EDT Kiet Ramirez MD URINE ORDERABLES Final Re sult Performing Organization Address [facility] Co de Phone Number [facility] [address] [place] [address]. [address] * Creatinine, Urine, Random (09/03/2024 3:21 PM EDT) Creatinine, Urine 127.80 mg/dL 09/03/2024 4:19 PM EDT [facility] Comment:Reference range not established for this test. Urine 09/03/2024 3:21 PM EDT 09/03/2024 3:30 PM EDT us Kiet Ramirez MD URINE ORDERABLES Final Re sult Performing Organization Address [facility] Co de Phone Number [facility] [address] * Chloride, Urine, Random (09/03/2024 3:21 PM EDT) Chloride, Ur <15 mmol/L 09/03/2024 4:19 PM EDT [facility] Comment:Reference range not established for this test. Urine 09/03/2024 3:21 PM EDT 09/03/2024 3:30 PM EDT Kiet Ramirez MD URINE ORDERABLES Final Re sult Performing Organization Address [facility]/ZIP Co de Phone Number [facility] [address] * Magnesium (09/03/2024 3:21 PM EDT) [facility] Magnesium 2.1 1.5 - 2.5 mg/dL 09/03/2024 3:50 PM EDT [facility] Plasma 09/03/2024 3:21 PM EDT 09/03/2024 3:27 PM EDT Kiet Ramirez MD LAB BLOOD ORDERABLES Denisse l Result Performing Organization Address [facility] de Phone Number [facility] [address] * (ABNORMAL) Basic Metabolic Panel (09/03/2024 3:21 PM EDT) [facility] Sodium 133 133 - 146 mmol/L 09/03/2024 3:50 PM EDT [facility] Potassium 2.9(LL) 3.5 - 5.3 mmol/L 09/03/2024 3:50 PM EDT [facility] Comment:Critical Result K:2. 9 Called to and read back by: LENA DON RN at: 09/03/2024 15:50:10 by:CAMILA Chloride 95(L) 98 - 110 mmol/L 09/03/2024 3:50 PM EDT [facility] CO2 15(L) 21 - 33 mmol/L 09/03/2024 3:50 PM EDT [facility] Anion Gap 23(H) 3 - 16 mmol/L 09/03/2024 3:50 PM EDT [facility] BUN 36(H) 7 - 25 mg/dL 09/03/2024 3:50 PM EDT [facility] Creatinine 3.16(H) 0.60 - 1.30 mg/dL 09/03/2024 3:50 PM EDT [facility] Glucose 91 70 - 100 mg/dL 09/03/2024 3:50 PM EDT [facility] Calcium 7.8(L) 8.6 - 10.3 mg/dL 09/03/2024 3:50 PM EDT [facility] Osmolality, Calculated 284 278 - 305 mOsm/kg 09/03/2024 3:50 PM EDT [facility] EGFR 24 09/03/2024 3:50 PM EDT [facility] Comment:As of 2021, the [...] MD LAB BLOOD ORDERABLES Denisse l Result [facility] [address] [place] [address], [facility] * Ethanol, Serum (09/03/2024 1:43 PM EDT) Ethanol <10 0 - 10 mg/dL 09/03/2024 3:08 PM EDT [facility] Serum 09/03/2024 1:43 PM EDT 09/03/2024 1:47 PM EDT Kiet Ramirez MD LAB BLOOD ORDERABLES Denisse l Result Performing Organization Address City/[facility] Co de Phone Number [facility] [address] [facility]. [address] * T4, Free (09/03/2024 1:43 PM EDT) Pathologist [facility] Free T4 0.74 0.61 - 1.76 ng/dL 09/03/2024 6:34 PM EDT [facility] Comment:Biotin megadosing (c onsumption >300 mcg/day) may falsely elevate free T4. When indicated, discontinue megadosing for 1 week and repeat testing. Serum 09/03/2024 1:43 PM EDT 09/03/2024 2:17 PM EDT us Kiet Ramirez MD LAB BLOOD ORDERABLES Denisse l Result Performing Organization Address [facility] Co de Phone Number [facility] [address] [facility]. [address] * TSH (09/03/2024 1:43 PM EDT) Pathologist [facility] TSH 0.92 0.45 - 4.12 uIU/mL 09/03/2024 6:30 PM EDT [facility] Serum 09/03/2024 1:43 PM EDT 09/03/2024 2:17 PM EDT us Kiet Ramirez MD LAB BLOOD ORDERABLES Denisse l Result Performing Organization Address City/[facility] Co de Phone Number [facility] [address] [facility]. [address] * Hepatitis B surface antigen (09/03/2024 1:43 PM EDT) Pathologist [facility] Hep B Surface Ag Nonreactive Nonreactive 09/03/2024 3:54 PM EDT [facility] Comment:Health Department no tified in accordance with reportable infectious disease guidelines. Serum 09/03/2024 1:43 PM EDT 09/03/2024 2:17 PM EDT [facility] - 09/03/2024 3:54 PM EDT The result will be immediately released to [facility] when marked final. Do you believe the result release to [facility] should be delayed based on either the Preventing Harm or Privacy exceptions of the Cures Rule?->No Specimen is considered negative for HBsAg. Kiet Ramirez MD LAB BLOOD ORDERABLES Denisse l Result Performing Organization Address [facility] Co de Phone Number [facility] [address] [facility]. [address] * Hepatitis B Core IgM (09/03/2024 1:43 PM EDT) Hep B Core IgM Nonreactive Nonreactive 09/03/2024 3:50 PM EDT [facility] Serum 09/03/2024 1:43 PM EDT 09/03/2024 2:17 PM EDT [facility] - 09/03/2024 3:50 PM EDT The result will be immediately released to [facility] when marked final. Do you believe the result release to [facility] should be delayed based on either the Preventing Harm or Privacy exceptions of the Cures Rule?->No IgM anti-HBc not detected. Does not exclude the possibility of exposure to or infection with HBV. Kiet Ramirez MD LAB BLOOD ORDERABLES Denisse l Result Performing Organization Address [facility] Co de Phone Number [facility] [address] [facility]. [address] * Hepatitis A IgM (09/03/2024 1:43 PM EDT) Hep A IgM Nonreactive Nonreactive 09/03/2024 3:49 PM EDT [facility] Serum 09/03/2024 1:43 PM EDT 09/03/2024 2:17 PM EDT [facility] - 09/03/2024 3:49 PM EDT The result will be immediately released to [facility] when marked final. Do you believe the result release to [facility] should be delayed based on either the Preventing Harm or Privacy exceptions of the Cures Rule?->No IgM anti-HAV not detected. Does not exclude the possibility of exposure to or infection with HAV. Levels of IgM anti-HAV may be below the cut-off in early infection. Kiet Ramirez MD LAB BLOOD ORDERABLES Denisse l Result Performing Organization Address [facility]/ZIP Co de Phone Number [facility] [address] [facility]. [address] * Hepatitis C Antibody (09/03/2024 1:43 PM EDT) HCV Ab Nonreactive Nonreactive 09/03/2024 3:58 PM EDT [facility] Comment:Health Department no tified in accordance with reportable infectious disease guidelines. Serum 09/03/2024 1:43 PM EDT 09/03/2024 2:17 PM EDT Narrative [facility] - 09/03/2024 3:58 PM EDT The result will be immediately released to [facility] when marked final. Do you believe the result release to [facility] should be delayed based on either the Preventing Harm or Privacy exceptions of the Cures Rule?->No Antibodies to HCV not detected; does not exclude the possibility of exposure to HCV. Kiet Ramirez MD LAB BLOOD ORDERABLES Denisse l Result Performing Organization Address [facility]/ZIP Co de Phone Number [facility] [address] [facility]. [address] * Lactic Acid (09/03/2024 1:43 PM EDT) Lactate 1.7 0.5 - 2.2 mmol/L 09/03/2024 2:25 PM EDT [facility] Plasma 09/03/2024 1:43 PM EDT 09/03/2024 1:52 PM EDT Kiet Ramirez MD LAB BLOOD ORDERABLES Denisse l Result [facility] [address] [facility]. [address] * Magnesium (09/03/2024 1:43 PM EDT) Magnesium 2.2 1.5 - 2.5 mg/dL 09/03/2024 2:06 PM EDT [facility] Plasma 09/03/2024 1:43 PM EDT 09/03/2024 1:47 PM EDT Kiet Ramirez MD LAB BLOOD ORDERABLES Denisse l Result Performing Organization Address [facility] Co de Phone Number [facility] [address] * (ABNORMAL) Basic Metabolic Panel (09/03/2024 1:43 PM EDT) Sodium 131(L) 133 - 146 mmol/L 09/03/2024 2:06 PM EDT [facility] Potassium 3.2(L) 3.5 - 5.3 mmol/L 09/03/2024 2:06 PM EDT [facility] Chloride 100 98 - 110 mmol/L 09/03/2024 2:06 PM EDT [facility] CO2 16(L) 21 - 33 mmol/L 09/03/2024 2:06 PM EDT [facility] Anion Gap 15 3 - 16 mmol/L 09/03/2024 2:06 PM EDT [facility] BUN 40(H) 7 - 25 mg/dL 09/03/2024 2:06 PM EDT [facility] Creatinine 3.52(H) 0.60 - 1.30 mg/dL 09/03/2024 2:06 PM EDT [facility] Glucose 86 70 - 100 mg/dL 09/03/2024 2:06 PM EDT [facility] Calcium 8.5(L) 8.6 - 10.3 mg/dL 09/03/2024 2:06 PM EDT [facility] Osmolality, Calculated 281 278 - 305 mOsm/kg 09/03/2024 2:06 PM EDT [facility] EGFR 21 09/03/2024 2:06 PM EDT [facility] Comment:As of 2021, the [...] MD LAB BLOOD ORDERABLES Denisse valle Result [facility] [address] [place] [address], [facility] * X-ray Portable Chest (09/03/2024 1:19 PM [...] Lopez MD at 09/03/2024 2:13 PM EDT us Kiet Ramirez MD IMG DIAGNOSTIC IMAGING OR DERABLES Final Result * Phosphorus (09/03/2024 10:49 AM EDT) Phosphorus 2.5 2.1 - 4.7 mg/dL 09/03/2024 11:31 AM EDT [facility] Plasma 09/03/2024 10:4 9 AM EDT 09/03/2024 11:02 AM EDT us Kiet Ramirez MD LAB BLOOD ORDERABLES Denisse l Result Performing Organization Address City/[facility]/ZIP Co de Phone Number [facility] [address] [facility]. [address] * Magnesium (09/03/2024 10:49 AM EDT) Magnesium 1.8 1.5 - 2.5 mg/dL 09/03/2024 11:31 AM EDT [facility] Plasma 09/03/2024 10:4 9 AM EDT 09/03/2024 11:02 AM EDT us Kiet Ramirez MD LAB BLOOD ORDERABLES Denisse l Result [facility] [address] * (ABNORMAL) Basic metabolic panel (09/03/2024 10:49 AM EDT) Sodium 133 133 - 146 mmol/L 09/03/2024 11:31 AM EDT [facility] Potassium 2.8(LL) 3.5 - 5.3 mmol/L 09/03/2024 11:31 AM EDT [facility] Comment: K CRITICAL VALUE WAS PREVIOUSLY CALLED CRITICAL CALLED TO LENA DON RN Chloride 101 98 - 110 mmol/L 09/03/2024 11:31 AM EDT [facility] CO2 19(L) 21 - 33 mmol/L 09/03/2024 11:31 AM EDT [facility] Anion Gap 13 3 - 16 mmol/L 09/03/2024 11:31 AM EDT [facility] BUN 39(H) 7 - 25 mg/dL 09/03/2024 11:31 AM EDT [facility] Creatinine 3.26(H) 0.60 - 1.30 mg/dL 09/03/2024 11:31 AM EDT [facility] Glucose 84 70 - 100 mg/dL 09/03/2024 11:31 AM EDT [facility] Calcium 8.6 8.6 - 10.3 mg/dL 09/03/2024 11:31 AM EDT [facility] Osmolality, Calculated 285 278 - 305 mOsm/kg 09/03/2024 11:31 AM EDT [facility] EGFR 23 09/03/2024 11:31 AM EDT [facility] Comment:As of 2021, the [...] 90 will be reported as >90mL/min/1.73m2. Reference: Lui sEduardo Cohn, Talia M, Olivia DC, Emerita ND, Madelyn CA, Felicia LA, et al. A Unifying Approach for GFR Estimation: Recommendations of the NKF-ASN Task Force on Reassessing the inclusion of Race in Diagnosing Kidney Disease. Am J Kidney Dis. 2020. Plasma 09/03/2024 10:4 9 AM EDT 09/03/2024 11:02 AM EDT us Kiet Ramirez MD LAB BLOOD ORDERABLES Denisse tori Result [facility] [address] [facility] [place] [address], [facility] * US Abdomen Complete (09/03/2024 10:30 AM [...] EXAM: US ABDOMEN COMPLETE EXAM: US DUPLEX [id number] COMPLETE INDICATION: Evaluate for cholecystitis COMPARISON: 09/03/2024 [...] EXAM: US ABDOMEN COMPLETE EXAM: US DUPLEX [id number] COMPLETE INDICATION: Evaluate for cholecystitis COMPARISON: 09/03/2024 [...] US ORDERABLES Final Result * US Duplex Mgw-Wkc-Yarovbg Comp (09/03/2024 10:30 AM EDT) Anatomical Region [...] EXAM: US ABDOMEN COMPLETE EXAM: US DUPLEX [id number] COMPLETE INDICATION: Evaluate for cholecystitis COMPARISON: 09/03/2024 [...] EXAM: US ABDOMEN COMPLETE EXAM: US DUPLEX [id number] COMPLETE INDICATION: Evaluate for cholecystitis COMPARISON: 09/03/2024 [...] 11:01 AM EDT us Jarrod Alas MD IM US ORDERABLES Final Result * (ABNORMAL) Urinalysis, Microscopic (09/03/2024 10:28 AM EDT) RBC, UA 1 0 - 3 /HPF 09/03/2024 11:51 AM EDT [facility] WBC, UA 1 0 - 5 /HPF 09/03/2024 11:51 AM EDT [facility] Squam Epithel, UA <1 0 - 5 /HPF 09/03/2024 11:51 AM EDT [facility] Bacteria, UA Occasional (A) None Seen /HPF 09/03/2024 11:51 AM EDT [facility] Mucus, UA Present(A) None Seen /HPF 09/03/2024 11:51 AM EDT [facility] Urine 09/03/2024 10:2 8 AM EDT 09/03/2024 11:24 AM EDT Kiet Ramirez MD URINE ORDERABLES Final Re sult [facility] [address] [place] [address], [facility] * (ABNORMAL) Urinalysis-Macroscopic w/Rfx to Microsco (09/03/2024 10:28 AM EDT) Color, UA Yellow Yellow,Straw 09/03/2024 11:51 AM EDT [facility] Clarity, UA Cloudy(A) Clear 09/03/2024 11:51 AM EDT [facility] Specific [place], UA >1.035(H) 1.005 - 1.035 09/03/2024 11:51 AM EDT [facility] pH, UA 6.5 5.0 - 8.0 09/03/2024 11:51 AM EDT [facility] Protein, UA Trace(A) Negative mg/dL 09/03/2024 11:51 AM EDT [facility] Glucose, UA Negative Negative mg/dL 09/03/2024 11:51 AM EDT [facility] Ketones, UA Negative Negative mg/dL 09/03/2024 11:51 AM EDT [facility] Bilirubin, UA Small(A) Negative 09/03/2024 11:51 AM EDT [facility] Blood, UA Negative Negative 09/03/2024 11:51 AM EDT [facility] Nitrite, UA Negative Negative 09/03/2024 11:51 AM EDT [facility] Urobilinogen, UA <2.0 0.2 - 1.9 mg/dL 09/03/2024 11:51 AM EDT [facility] Leukocyte Esterase, UA Negative Negative 09/03/2024 11:51 AM EDT [facility] Urine 09/03/2024 10:2 8 AM EDT 09/03/2024 10:55 AM EDT us Kiet Ramirez MD URINE ORDERABLES Final Re sult [facility] [address] * #1 Blood culture-Peripheral site 1 (09/03/2024 8:10 AM EDT) Culture Result No Growth After 5 Days [facility] Blood BLOOD SPECIMEN / Unknown 09/03/2024 8:10 AM EDT 09/03/2024 8:57 AM EDT Narrative [facility] - 09/08/2024 9:00 AM EDT One aerobic bottle was received Suboptimal volume of blood received. Interpret results with caution. us Jarrod Alas MD MICROBIOLOGY - GENERAL ORDERAB LES Final Result [facility] [address] * #2 Blood culture-Peripheral site 2 (09/03/2024 7:55 AM EDT) Culture Result No Growth After 5 Days [facility] Blood BLOOD SPECIMEN / Unknown 09/03/2024 7:55 AM EDT 09/03/2024 8:40 AM EDT Narrative [facility] - 09/08/2024 8:45 AM EDT Suboptimal volume of blood received. Interpret results with caution. Jarrod Alas MD MICROBIOLOGY - GENERAL ORDERAB LES Final Result [facility] [address] [facility]. [address] * Lactic acid, venous (09/03/2024 7:55 AM EDT) Lactate, Shakeel 1.8 0.5 - 2.2 mmol/L 09/03/2024 8:02 AM EDT [facility] Whole Blood VENOUS STRUCTURE / Unknown 09/03/2024 7:55 AM EDT 09/03/2024 7:59 AM EDT Jarrod Alas MD LAB BLOOD ORDERABLES Final Res ult [facility] [address] [facility]. [address] * High Sensitivity Troponin (60min) (09/03/2024 7:18 AM EDT) High Sensitivity Troponin 14 0 - 20 ng/L 09/03/2024 7:49 AM EDT [facility] Serum 09/03/2024 7:18 AM EDT 09/03/2024 7:18 AM EDT Narrative [facility] - 09/03/2024 7:49 AM EDT Please draw 60min after time that first troponin is drawn. Rommel Mccoy MD LAB BLOOD ORDERABLES Final Resul t [facility] [address] [place] [address], [facility] * Paracentesis (09/03/2024 7:01 AM EDT) Ana [...] infection and pain Alternatives discussed: No treatment [place] protocol: Procedure explained and questions answered to [...] adhesive bandage Post-procedure details: Procedure completion: Tolerated Result [facility] Ana Maria Ramey MD PROCEDURE/MINOR SURGICAL ORDERA BLES Final Result * Albumin, fluid (09/03/2024 6:46 AM EDT) Albumin, Fluid <1.5 g/dL 09/03/2024 8:22 AM EDT [facility] Comment:Reference range not established for this test. Abdominal Fluid ABDOMEN / Unknown 025 6:46 AM EDT 09/03/2024 6:59 AM EDT Jose [facility] - 09/03/2024 8:22 AM EDT This assay has been modified from the concessions manager's specifications and has been validated with performance characteristics determined by [facility] in accordance with federal regulations [...] ORDERABLE S Final Result Performing Organization Address [facility] de Phone Number [facility] [address] [place] [address] * Protein, body fluid (09/03/2024 6:46 AM EDT) Protein, Fluid <3.0 g/dL 09/03/2024 8:22 AM EDT [facility] Comment:Reference range not established for this test. Paracentesis Fluid ABDOMEN / Unknown 08/13 6:46 AM EDT 09/03/2024 6:59 AM EDT [facility] - 09/03/2024 8:22 AM EDT This assay has been modified from the concessions manager's specifications and has been validated with performance characteristics determined by [facility] in accordance with federal regulations [...] ORDERABLE S Final Result Performing Organization Address [facility] de Phone Number [facility] [address] [place] [address]. [address] * Body fluid cell count (09/03/2024 6:46 AM EDT) Color, Fluid Yellow 09/03/2024 10:15 AM EDT [facility] Clarity, Fluid Hazy 09/03/2024 10:15 AM EDT [facility] Neutrophil %, Fluid 20 % 09/03/2024 10:15 AM EDT [facility] Lymphocytes %, Fluid 20 % 09/03/2024 10:15 AM EDT [facility] Mesothelial %, Fluid 40 % 09/03/2024 10:15 AM EDT [facility] Macrophage %, Fluid 20 % 09/03/2024 10:15 AM EDT [facility] RBC, Fluid 3,380 /uL 09/03/2024 10:15 AM EDT [facility] Total Nucleated Cells, Fluid 9 /uL 09/03/2024 10:15 AM EDT [facility] Comment: No abnormal cells are seen. [...] ORDERABLE S Final Result Performing Organization Address City/[facility]/ZIP Co de Phone Number [facility] [address] * Body Fluid Culture plus Stain (09/03/2024 6:46 AM EDT) Gram Stain Result Cytospin Results: [facility] Gram Stain Result No Polymorphonuclear Leukocytes Seen; [facility] Gram Stain Result No Organisms Seen; [facility] Culture Result No Growth After 5 Days [facility] Paracentesis Fluid ABDOMEN / Unknown 08/13 6:46 AM EDT 09/03/2024 6:59 AM EDT us Rommel Mccoy MD MICROBIOLOGY - GENERAL ORDERABLE S Final Result [facility] [address] * X-ray Portable Chest (09/03/2024 6:06 [...] ORDERABLES Final Resul t Performing Organization Address [facility] Co de Phone Number [facility] [address] [facility]. [address] * ECG for indication of dyspnea (09/03/2024 5:32 AM EDT) 09/03/2024 5:32 AM EDT Narrative MUSE - 09/03/2024 8:00 AM EDT Ventricular Rate: 90 BPM Atrial Rate: 90 BPM P-R Interval: 190 ms QRS Duration: 104 ms QT: 456 ms QTc: 557 ms P Mazama: 76 degrees R Mazama: -37 degrees T Mazama: 16 degrees Diagnosis Line: INTERPRETATION NOT AVAILABLE--ECG READ IN ER ^ Reconfirmed by PHYSICIAN, ER ([id number]), editorial manager Tonya BUTLER ([id number]) on 09/03/2024 8:00:24 AM us Rommel Mccoy MD ECG ORDERABLES Edited Result - Final Performing Organization Address [facility] Co de Phone Number MUSE * High Sensitivity Troponin (09/03/2024 5:29 AM EDT) High Sensitivity Troponin 16 0 - 20 ng/L 09/03/2024 6:02 AM EDT [facility] Serum 09/03/2024 5:29 AM EDT 09/03/2024 5:39 AM EDT us Rommel Mccoy MD LAB BLOOD ORDERABLES Final Resul t Performing Organization Address [facility] Co de Phone Number [facility] [address] [facility]. [address] * Magnesium (09/03/2024 5:29 AM EDT) Magnesium 2.0 1.5 - 2.5 mg/dL 09/03/2024 6:14 AM EDT [facility] Plasma 09/03/2024 5:29 AM EDT 09/03/2024 5:39 AM EDT us Rommel Mccoy MD LAB BLOOD ORDERABLES Final Resul t Performing Organization Address City/[facility]/ZIP Co de Phone Number [facility] [address] [facility]. [address] * Lipase (09/03/2024 5:29 AM EDT) Lipase 40 4 - 82 U/L 09/03/2024 6:1 4 AM EDT [facility] Plasma 09/03/2024 5:29 AM EDT 09/03/2024 5:39 AM EDT us Rommel Mccoy MD LAB BLOOD ORDERABLES Final Resul t Performing Organization Address City/[facility] Co de Phone Number [facility] [address] [facility]. [address] * (ABNORMAL) Hepatic Function Panel (09/03/2024 5:29 AM EDT) Total Bilirubin 32.5(H) 0.0 - 1.5 mg/dL 09/03/2024 6:14 AM EDT [facility] Bilirubin, Direct 19.8(H) 0.0 - 0.4 mg/dL 09/03/2024 6:14 AM EDT [facility] AST 73(H) 13 - 39 U/L 09/03/2024 6:14 AM EDT [facility] ALT 45 7 - 52 U/L 09/03/2024 6:14 AM EDT [facility] Alkaline Phosphatase 139(H) 36 - 125 U/L 09/03/2024 6:14 AM EDT [facility] Total Protein 5.5(L) 6.4 - 8.9 g/dL 09/03/2024 6:14 AM EDT [facility] Albumin 3.4(L) 3.5 - 5.7 g/dL 09/03/2024 6:14 AM EDT [facility] Bilirubin, Indirect 12.7(H) 0.0 - 1.1 mg/dL 09/03/2024 6:14 AM EDT [facility] Plasma 09/03/2024 5:29 AM EDT 09/03/2024 5:39 AM EDT us Rommel Mccoy MD LAB BLOOD ORDERABLES Final Resul t [facility] [address] [place], [place] [address] * (ABNORMAL) Differential (09/03/2024 5:29 AM EDT) Differential Comments See Note 09/03/2024 7:13 AM EDT [facility] Comment:Acanthocytes Present Scan Result PERFORMED 09/03/2024 7:13 AM EDT [facility] Neutrophils Relative 84.2(H) 40.0 - 80.0 % 09/03/2024 7:13 AM EDT [facility] Lymphocytes Relative 7.9(L) 15.0 - 45.0 % 09/03/2024 7:13 AM EDT [facility] Monocytes Relative 5.7 0.0 - 12.0 % 09/03/2024 7:13 AM EDT [facility] Eosinophils Relative 1.9 0.0 - 8.0 % 09/03/2024 7:13 AM EDT [facility] Basophils Relative 0.3 0.0 - 1.0 % 09/03/2024 7:13 AM EDT [facility] nRBC 0 0 - 0 /100 WBC 09/03/2024 7:13 AM EDT [facility] Neutrophils Absolute 9,094(H) 1,520 - 8,640 [...] - 108 /uL 09/03/2024 7:13 AM EDT [facility] Morphology Platelet morphology appears normal 09/03/2024 7:13 AM EDT [facility] Whole Blood 09/03/2024 5:29 AM EDT 09/03/2024 5:51 AM EDT us Rommel Mccoy MD LAB BLOOD ORDERABLES Final Resul t [facility] [address] [place] [address], [facility] * (ABNORMAL) CBC (09/03/2024 5:29 AM EDT) WBC 10.8 3.8 - 10.8 10E3/uL 09/03/2024 7:13 AM EDT [facility] RBC 3.35(L) 4.20 - 5.80 10E6/uL 09/03/2024 7:13 AM EDT [facility] Hemoglobin 11.9(L) 13.2 - 17.1 g/dL 09/03/2024 7:13 AM EDT [facility] Hematocrit 33.0(L) 38.5 - 50.0 % 09/03/2024 7:13 AM EDT [facility] MCV 98.6 80.0 - 100.0 fL 09/03/2024 7:13 AM EDT [facility] MCH 35.6(H) 27.0 - 33.0 pg 09/03/2024 7:13 AM EDT [facility] MCHC 36.2(H) 32.0 - 36.0 g/dL 09/03/2024 7:13 AM EDT [facility] RDW 22.8(H) 11.0 - 15.0 % 09/03/2024 7:13 AM EDT [facility] Platelets 71(L) 140 - 400 10E3/uL 09/03/2024 7:13 AM EDT [facility] Comment: _Platelet Morphology Normal Specimen checked for clots. None detected. Slide Reviewed for PLT Clumps. None Seen. _Platelets Appear Decreased Platelet Estimate Decreased 09/03/2024 7:13 AM EDT [facility] MPV 9.3 7.5 - 11.5 fL 09/03/2024 7:13 AM EDT [facility] Whole Blood 09/03/2024 5:29 AM EDT 09/03/2024 5:51 AM EDT Narrative [facility] - 09/03/2024 7:13 AM EDT Peripheral blood smear was scanned per review criteria approved by the laboratory medical lab tech instructor. us Rommel Mccoy MD LAB BLOOD ORDERABLES Final Resul t [facility] [address] [place] [address], [facility] * (ABNORMAL) Basic metabolic panel (09/03/2024 5:29 AM EDT) Sodium 133 133 - 146 mmol/L 09/03/2024 6:14 AM EDT [facility] Potassium 2.6(LL) 3.5 - 5.3 mmol/L 09/03/2024 6:14 AM EDT [facility] Comment:Critical Result K:2. 6 Called to and read back by: SIMEON HANSEN RN at: 09/03/2024 06:14:37 by:COLLINJ Chloride 100 98 - 110 mmol/L 09/03/2024 6:14 AM EDT [facility] CO2 20(L) 21 - 33 mmol/L 09/03/2024 6:14 AM EDT [facility] Anion Gap 13 3 - 16 mmol/L 09/03/2024 6:14 AM EDT [facility] BUN 38(H) 7 - 25 mg/dL 09/03/2024 6:14 AM EDT [facility] Creatinine 3.01(H) 0.60 - 1.30 mg/dL 09/03/2024 6:14 AM EDT [facility] Glucose 133(H) 70 - 100 mg/dL 09/03/2024 6:14 AM EDT [facility] Calcium 8.9 8.6 - 10.3 mg/dL 09/03/2024 6:14 AM EDT [facility] Osmolality, Calculated 287 278 - 305 mOsm/kg 09/03/2024 6:14 AM EDT [facility] EGFR 26 09/03/2024 6:14 AM EDT [facility] Comment:As of 2021, the [...] ORDERABLES Final Resul t Performing Organization Address [facility]/ZIP Co de Phone Number [facility] [address] [facility]. [address] * (ABNORMAL) Ammonia (09/03/2024 5:25 AM EDT) Ammonia 166(H) 27 - 90 ug/dL 09/03/2024 8:17 AM EDT [facility] Plasma 09/03/2024 5:25 AM EDT 09/03/2024 5:50 AM EDT us Rommel Mccoy MD LAB BLOOD ORDERABLES Final Resul t [facility] [address] [facility]. [address] documented in this encounter Visit Diagnoses [...] * Assessment & Plan Note - Azalea Hughes, DO - 09/09/2024 12:42 PM EDT Associated [...] with SBP, s/p CTX x5d; will cont chcf ppx with Cipro 500mg daily - HE: [...] kidney disease) stage 4, GFR 15-29 ml/min ([facility]) As above for NADIYA * [...] Problem(s): Acute kidney injury superimposed on CKD ([facility]) Admit Cr 3.01 (from 2.91 on 09/02, [...] kidney disease) stage 4, GFR 15-29 ml/min ([facility]) As above for NADIYA * [...] Problem(s): Acute kidney injury superimposed on CKD ([facility]) Admit Cr 3.01 (from 2.91 on 09/02, [...] kidney disease) stage 4, GFR 15-29 ml/min ([facility]) As above for NADIYA * [...] Problem(s): Acute kidney injury superimposed on CKD ([facility]) Admit Cr 3.01 (from 2.91 on [...] kidney disease) stage 4, GFR 15-29 ml/min ([facility]) As above for NADIYA * Assessment [...] kidney disease) stage 4, GFR 15-29 ml/min ([facility]) As above for NADIYA * Assessment [...] * Assessment & Plan Note - Azalea Hughes, DO - 09/05/2024 2:50 PM EDTAssociated Problem(s): [...] kidney disease) stage 4, GFR 15-29 ml/min ([facility]) As above for NADIYA * [...] * Assessment & Plan Note - Kiet Rmairez MD - 09/04/2024 10:43 AM EDT Associated [...] kidney disease) stage 4, GFR 15-29 ml/min ([facility]) Admit Cr 3.01, 3.26 on [...] Paracentesis (>5 L), at 100 mL/hr New Bag 09/09/2024 5:10 PM EDT 12.5 g 100 mL/hr New 09/09/2024 4:36 PM EDT 12.5 g 100 mL/hr New 09/09/2024 4:06 PM EDT 12.5 g 100 [...] g, Intravenous, at 240 mL/hr, Once, On Sun09/04/24 at 0900, For 1 dose, ADMINISTER IV [...] 25 mg 25 mg, Oral, Once, On Sun09/06/24 at 0130, For 1 dose Given 09/06/2024 1:30 AM EDT 25 mg diphenhydrAMINE (BENADRYL) capsule 25 mg 25 mg, Oral, Once, On 09/06/24 at 1130, For 1 dose Given 09/06/2024 11:14 AM EDT 25 mg diphenhydrAMINE (BENADRYL) capsule 25 mg 25 mg, Oral, Once, On Sun09/07/24 at [...] 1112, For 1 dose, PROTECT FROM LIGHT 09/04/2024 12:04 PM EDT 10 mg 50 mL/hr phytonadione (vitamin K1) (AQUA-MEPHYTON) 10 mg in sodium chloride 0.9 % 50 mL IVPB 10 mg, Intravenous, Administer over 60 Minutes, Daily, First dose (after last reorder) on Sun09/05/24 at 0900, For 2 days, PROTECT FROM LIGHT 09/06/2024 9:21 AM EDT 10 m g 50 mL/hr 09/05/2024 8:08 AM EDT 10 mg 50 mL/hr potassium chloride (KCl)/Sterile water 100 mL 10 mEq/100 mL IVPB 10 mEq 10 mEq, Intravenous, Administer over 60 Minutes, every 1 hour x 2, First dose on Sun09/03/24 at 0620, For 2 doses, MAX INFUSION RATE VIA PERIPHERAL LINE IS 10 mEq/hr (100 mL/hr). 09/03/2024 7:28 AM EDT 10 mEq 100 mL/hr 09/03/2024 6:29 AM EDT 10 mEq 100 [...] 2, First dose (after last reorder) on Tish 09/04/24 at 2026, For 2 doses, MAX INFUSION RATE VIA [...] 40 mEq 40 mEq, Oral, Once, On Tish 09/04/24 at 2025, For 1 dose, FOR PATIENTS [...] Yolette Yang RN)0951 (Not Given - Provider: Yoltete Yang RN - Reason: Order parameters not [...] least 3 BM daily, On hold since [facility] 09/06/2024 at 1040 until manually unheld 0900 [...] Yolette Yang RN)2123 (Given - Provider: Krista Bernard, ЮЛИЯ) 0856 (Given - Provider: Sofía Perkins RN)1242 (Given - Provider: Sofía Perkins RN)2054 (Given - Provider: Lydia Harrison, ЮЛИЯ) 0813 (Given - Provider: Capri Schwarz RN)1209 (Given - Provider: Capri Schwarz RN) thiamine mononitrate (VITAMIN B-1) tablet 100 mg 100 mg, Oral, Daily, First dose on 09/07/24 at 1100 1218 (Given - Provider: Yolette Yang RN) 0857 (Given - Provider: Sofía Perkins RN) 0813 (Given - Provider: Capri Schwarz RN) ursodioL (ACTIGALL) capsule 300 mg 300 mg, Oral, 2 times daily, First dose on Sun09/05/24 at 1030 0832 (Given - Provider: Yolette Yang RN)2123 (Given - Provider: Krista Bernard, ЮЛИЯ) 0857 (Given - Provider: Sofía Perkins RN)2054 (Given - Provider: Lydia Harrisno, ЮЛИЯ) 0813 (Given - Provider: Capri Schwarz RN) [...] RN)1522 (See Alternative - Provider: Gerda Guerra RN)212 (See Alternative - Provider: Krista Bernard RN) 0425 (See Alternative - Provider: Krista Bernard RN)1112 (See Alternative - Provider: Sofía Perkins RN)1536 (See Alternative - Provider: Sofía Perkins RN)2055 (See Alternative - Provider: Lydia Harrison RN) 0111 (See Alternative - Provider: Cleveland Villalta RN)0718 (See Alternative - Provider: Cleveland Villalta RN)1209 (See Alternative - Provider: Capri Shcwarz RN) oxyCODONE (ROXICODONE) immediate release tablet 5 mg(Linked Group 2) 5 mg, Oral, Every 4 hours PRN, severe pain (NRS 7-10) or if patient is non-communicative (CPOT 6-8), Starting on Sun09/04/24 at 1054 0842 (Given - Provider: Yolette Yang RN)1522 (Given - Provider: Gerda Guerra, ЮЛИЯ)2127 (Given - Provider: Krista Bernard RN) 0425 (Given - Provider: Krista Bernard RN)1112 (Given - Provider: Sofía Perkins RN)1536 (Given - Provider: Sofía Perkins RN)205 (Given - Provider: Lydia Harrison RN) 0111 (Given - Provider: Cleveland Villalta, RN)0718 (Given - Provider: Cleveland Villalta RN)1209 [...] 3-5), Starting on Tish 09/04/24 at 1054 Or oxyCODONE (ROXICODONE) immediate release tablet 5 mgJump to med 5 mg, Oral, Every 4 hours PRN, severe pain (NRS 7-10) or if patient is non-communicative (CPOT 6-8), Starting on Tish 09/04/24 at 1054 documented in this encounter Additional Health Concerns Infection Onset Date Last Indicated Resolved Time Rule Out C. difficile 09/08/2024 09/08/20242024 10:56 PM EDT Rule Out C. difficile 09/09/2024 09/09/20242024 1:20 PM EDT C. difficile 09/09/2024 09/09/2024 documented as of this encounter
--- OUTSIDE RECORDS SUMMARY | 2024-09-25 11:25 | XMS_ITS | Encounter Summary ---
Author Organization [facility] Address [address] [place] [address] Care Team Providers Care Rag Willow Operator Name Role Phone Unavailable Primary Care Provider [...] release of HIV test results or diagnoses. [id number] Reason for Visit * Reason Comments Labs Only Encounter Details Date Type Department Care Team (Late st Contact Info) Description 09/25/2024 11:25 AM EDT Specimen [facility] [address] [place] [phone] Gerri Peterson MD [facility] [place] [address] Cirrhosis of liver with ascites, [...] Recorded In the past 12 months has [employer], oil, or water [employer] threatened to shut off services in your [...] time in the past 12 m [facility], were you homeless or living [...] Description 12/05/2024 8:01 AM EDT Hospital Encounter [facility] ENDOSCOPY [address] [place] [address] Chris Orosco MD [address] [place] [phone] 12/05/2024 8:01 AM EDT - 12/05/2024 8:31 AM EDT Surgery [facility] ENDOSCOPY [address] [place] [address] Chris Orosco MD [address] [place] [phone] EGD Scheduled Procedures Name Priority Associated Diagnoses [...] BARBITURATES NOT PRESENT 09/29/2024 12:39 PM EDT [facility] BENZODIAZEPINES NOT PRESENT 09/30/19 12:39 PM EDT [facility] CANNABINOIDS NOT PRESENT 09/29/2024 12:39 PM EDT [facility] MARKETING COMMUNITY LIAISON STIMULANTS NOT PRESENT 12:39 PM EDT [facility] OPIOID ANALGESICS PRESENT 025 12:39 PM EDT [facility] Tramadol >1000 ng/mL 09/29/2024 12:39 PM EDT [facility] OPIOID ANTAGONISTS NOT PRESENT 09/29 12:39 PM EDT [facility] SEDATIVES/MUSCLE RELAXANTS NOT PRESENT 09/29/2024 12:39 PM EDT [facility] TRICYCLIC ANTIDEPRESSANTS NOT PRESENT 09/29/2024 12:39 PM EDT [facility] Creatinine, Ur 122.10 mg/dL 09/26/2024 11:30 AM EDT [facility] Comment:Reference range not established for this test. pH 5.8 4.7 - 7.8 09/26/2024 11:30 AM EDT [facility] Specific Stanton 1.010 1.003 - 1.035 09/26/2024 11:30 AM EDT [facility] Urine 09/25/2024 11:5 5 AM EDT 09/25/2024 12:19 PM EDT Narrative [facility] - 09/29/2024 12:39 PM EDT This test has been developed and its performance characteristics determined by [facility] which is certified under the [...] Chinedu Sidhu MD URINE ORDERABLES Final Result [facility] [address] [place] [address], [facility] * Phosphatidylethanol Confirmation, B (09/25/2024 11:55 AM EDT) PETH 16:0/18.1 (POPETH) <10 Cutoff: 10 ng/mL 09/29/2024 12:24 PM EDT [facility] Comment: Phosphatidylethanol (PEth) homologues result [...] Cutoff: 10 ng/mL 09/29/2024 12:24 PM EDT [facility] Comment: PEth 16:0/18:2 (PLPEth) Reference ranges are not well established PEth Interpretation Negative. 09/29 12:24 PM EDT [facility] Comment: ADDITIONAL INFORMATION This report is intended for use in clinical monitoring and management of patients. It is not intended for use in employment-related testing. This test was developed and its performance characteristics determined by [facility] in a manner consistent with CLIA requirements. This test has not been cleared or approved by the U.S. Food and Drug Administration. Test Performed by: [facility] [place] [id number] [place] [address] Oil Field Operator: Kathy Ortiz Ph.D.; CLIA# [id number] Whole Blood 09/25/2024 11:5 5 AM EDT 09/29/2024 12:24 PM EDT Chinedu Sidhu MD LAB BLOOD ORDERABLES Final Re sult Performing Organization Address [facility] Co de Phone Number [facility] [address] * (ABNORMAL) Hepatic Function Panel (09/25/2024 11:55 AM EDT) Total Bilirubin 20.2(H) 0.0 - 1.5 mg/dL 09/25/2024 1:02 PM EDT [facility] Bilirubin, Direct 13.33(H) 0.00 - 0.40 mg/dL 09/25/2024 1:02 PM EDT [facility] AST 57(H) 13 - 39 U/L 09/25/2024 1:02 PM EDT [facility] ALT 29 7 - 52 U/L 09/25/2024 1:02 PM EDT [facility] Alkaline Phosphatase 171(H) 36 - 125 U/L 09/25/2024 1:02 PM EDT [facility] Total Protein 5.6(L) 6.4 - 8.9 g/dL 09/25/2024 1:02 PM EDT [facility] Albumin 3.5 3.5 - 5.7 g/dL 09/25/2024 1:02 PM EDT [facility] Bilirubin, Indirect 6.87(H) 0.00 - 1.10 mg/dL 09/25/2024 1:02 PM EDT [facility] Plasma 09/25/2024 11:5 5 AM EDT 09/25/2024 12:21 PM EDT Gerri Peterson MD LAB BLOOD ORDERABLES Final Resu lt Performing Organization Address City/[facility]/ZIP Co de Phone Number [facility] [address] [facility]. [address] * (ABNORMAL) Protime-INR (09/25/2024 11:55 AM EDT) Pathologist [facility] Protime 23.6(H) 12.1 - 15.1 seconds 09/25/2024 12:46 PM EDT [facility] INR 2.0(H) 0.9 - 1.1 09/25/2024 12:46 PM EDT [facility] Comment: RECOMMENDED THERAPEUTIC RANGES USING INR : Stable oral anticoagulant therapy: 2.0 - 3.0 Mechanical prosthetic heart valve: 2.5 - 3.5 Recurrent acute myocardial infarction: 2.5 - 3.5 Plasma 09/25/2024 11:5 5 AM EDT 09/25/2024 12:20 PM EDT us Gerri Peterson MD LAB BLOOD ORDERABLES Final Resu lt [facility] [address] [place] [address], [facility] * (ABNORMAL) CBC (09/25/2024 11:55 AM EDT) Pathologist [facility] WBC 8.2 3.8 - 10.8 10E3/uL 09/25/2024 1:43 PM EDT [facility] RBC 2.88(L) 4.20 - 5.80 10E6/uL 09/25/2024 1:43 PM EDT [facility] Hemoglobin 10.8(L) 13.2 - 17.1 g/dL 09/25/2024 1:43 PM EDT [facility] Hematocrit 29.8(L) 38.5 - 50.0 % 09/25/2024 1:43 PM EDT [facility] MCV 103.5(H) 80.0 - 100.0 fL 09/25/2024 1:43 PM EDT [facility] MCH 37.6(H) 27.0 - 33.0 pg 09/25/2024 1:43 PM EDT [facility] MCHC 36.3(H) 32.0 - 36.0 g/dL 09/25/2024 1:43 PM EDT [facility] RDW 20.1(H) 11.0 - 15.0 % 09/25/2024 1:43 PM EDT [facility] Platelets 62(L) 140 - 400 10E3/uL 09/25/2024 1:43 PM EDT [facility] Comment: _Platelets Appear Decreased Slide Reviewed for PLT Clumps. None Seen. Specimen checked for clots. None detected. MPV 8.3 7.5 - 11.5 fL 09/25/2024 1:43 PM EDT [facility] Whole Blood 09/25/2024 11:5 5 AM EDT 09/25/2024 12:20 PM EDT us Gerri Peterson MD LAB BLOOD ORDERABLES Final Resu lt [facility] [address] [place] [address], [facility] * (ABNORMAL) Comprehensive metabolic panel (09/25/2024 11:55 AM EDT) Sodium 133 133 - 146 mmol/L 09/25/2024 12:50 PM EDT [facility] Potassium 4.1 3.5 - 5.3 mmol/L 09/25/2024 12:50 PM EDT [facility] Chloride 103 98 - 110 mmol/L 09/25/2024 12:50 PM EDT [facility] CO2 18(L) 21 - 33 mmol/L 09/25/2024 12:50 PM EDT [facility] Anion Gap 12 3 - 16 mmol/L 09/25/2024 12:50 PM EDT [facility] BUN 42(H) 7 - 25 mg/dL 09/25/2024 12:50 PM EDT [facility] Creatinine 3.13(H) 0.60 - 1.30 mg/dL 09/25/2024 12:50 PM EDT [facility] Glucose 106(H) 70 - 100 mg/dL 09/25/2024 12:50 PM EDT [facility] Calcium 9.3 8.6 - 10.3 mg/dL 09/25/2024 12:50 PM EDT [facility] Total Bilirubin 20.2(H) 0.0 - 1.5 mg/dL 09/25/2024 1:02 PM EDT [facility] AST 57(H) 13 - 39 U/L 09/25/2024 1:02 PM EDT [facility] ALT 29 7 - 52 U/L 09/25/2024 1:02 PM EDT [facility] Alkaline Phosphatase 171(H) 36 - 125 U/L 09/25/2024 1:02 PM EDT [facility] Total Protein 5.6(L) 6.4 - 8.9 g/dL 09/25/2024 1:02 PM EDT [facility] Albumin 3.5 3.5 - 5.7 g/dL 09/25/2024 1:02 PM EDT [facility] Osmolality, Calculated 287 278 - 305 mOsm/kg 09/25/2024 12:50 PM EDT [facility] EGFR 25 09/25/2024 12:50 PM EDT [facility] Comment:As of 2021, the [...] MD LAB BLOOD ORDERABLES Final Resu lt [facility] [address] [place] [address], [facility] documented in this encounter [...]
--- OUTSIDE RECORDS SUMMARY | 2024-09-29 11:00 | XMS_ITS | Encounter Summary ---
Author Organization [facility] Address [address] [place] [address] Care Team Providers Care Director Of Grants Name Role Phone Unavailable Primary Care Provider [...] release of HIV test results or diagnoses. [id number] Health Encounter Details Date Type Department Care Team (Late st Contact Info) Description 09/29/2024 11:00 AM EDT [facility] [address] [facility] [address] [place] [phone] Craig Warren PsyD [address] [facility] [address] [place] [address] PTSD (post-traumatic stress disorder) (Primary [...] Recorded In the past 12 months has [employer], gas, oil, or water company threatened to [...] The following assessment was informed by the [place] Integrated Psychosocial Assessment for Transplant (SIP AT) and the SIPAT-General TXP Long Form ?? Tyler et al, 2008; Tyler et al, Psychosomatics 2012. Assessment Measures: Clinical Interview Patient Health Questionnaire -9 (PHQ-9) Generalized Anxiety Disorder-7 (MAGALYS-7) [place] Cognitive Assessment (MoCA) [place] Integrated Psychosocial Assessment for Transplant (SIPAT) Patient [...] mother is and his father resides in [facility]. Patient earned a graduate degree and never served in the . 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 Patient trusts his [...] most recent in 2023. Given distance to [facility] (~ 1.25 - 1.5 hr) and [...] well as with an individual counselor, at [facility]. Alcohol use triggers identified as [...] PCP). Was established with Pain Management at [facility] under VALENTINE Rodriguez May 2024. Note [...] Description 12/05/2024 8:01 AM EDT Hospital Encounter [facility] ENDOSCOPY [address] [place] [address] Chris Orosco MD [address] [place] [phone] 12/05/2024 8:01 AM EDT - 12/05/2024 8:31 AM EDT Surgery [facility] ENDOSCOPY [address] [place] [address] Chris Orosco MD [address] [place] [address] EGD Scheduled Procedures Name Priority Associated Diagnoses [...]
--- OUTSIDE RECORDS SUMMARY | 2024-09-29 14:20 | XMS_ITS | Encounter Summary ---
Author Organization Healthcare Address [address] [place] [address] Care Team Providers Care Extern Name Role Phone Regina, Lj Nova APRN Unavailable [phone] Enedina Mcguire APRN Primary Care Provider + Reason for Referral * Consultation (Routine) - Authorized Specialty Diagnoses / Procedures Referred By Shane t Referred To Contact Diagnoses NADIYA (acute kidney injury) (CMS/HCC) Portal hypertension (CMS/HCC) Secondary esophageal varices with bleeding (CMS/HCC) Yovanny Curran MD [address] [address] Phone: tel: fax: Referral ID Status Reason Start Date Expiration Date V isits Requested Visits Authorized [id number] Authorized 09/29/2024 03/31/2026 1 1 Reason for Visit * Reason Comments Follow-up Pt did not taken vit al sign Encounter Details Date Type Department Care Team ([facility] Contact Info) Description 09/29/2024 2:20 PM EDT Office Visit Professional [employer] [place] Nephrology, Bone & Mineral Metabolism [address] , [address] [place] [address] Yovanny Bob MD [address] [place] [address] NADIYA (acute kidney injury) (CMS/HCC) [...] answer 07/14/2024 How often do you attend [facility] or tenriism services? Patient unable to answer 07/14/2024 Do you belong to any clubs o r organizations such as protestant groups, unions, fraternal or athletic groups, or [...] Recorded Patient Health Questionnaire-2 Score 2 09/29/2024 [facility] of Occupat ional [facility] - Occupational Stress Questionnaire Answer Date Recorded [...] place to sleep or slept in a half-way (including now)? No 11/19/2023 PHQ-9 Answer Date [...] any time in the past 12 m [facility], were you homeless or living in a half-way (including now)? 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-PIPE FITTER MAINTENANCE) to steady your nerves or to get rid of a hangover? 0 07/19/2024 CAGE Questionnaire Score 2 025 Utilities Answer Date Recorded In the past 12 months has th [employer], gas, oil, or water [employer] threatened to shut off services in your [...] at all 09/29/2024 1:47 PM EDT Janice rByant Thoughts that you would be b mariza [...] Patient confirms they are physically located in [place]? Yes If the patient is not physically located in [place], the provider has confirmed with [facility] thatthe provider is authorized to provide services in patient's stated location? N/A Provider Location: [facility] facility Audio and video or audio only? Audio and video Total visit time: 20 minutes HISTORY OF PRESENT ILLNESS Julien Anderson was seen in our clinic previously with/for Follow-up. As you know, patient is a 39 y.o. male who presents to the clinic today as follow up of his NADIYA. Most recently discharged on 09/09 from [facility]. Cr at time of discharge was 2.4. Cr most recently at [facility] was 3.0. On bicarb repletion. C/O abdominal [...] impressions, importance of compliance with treatment, and parts counterman nature of condition. Education provided was verbal [...] Description 12/01/2024 2:20 PM EDT Office Visit [facility] Nephrology, Bone & Mineral Metabolism [address], [address] [place] [address] Yovanny Curran MD [address] [place] [address] 01/08/2025 3:20 PM EDT [facility] Visit [facility] [address] , [address] [place] [address] Vincent Braga MD [address] [place] [address] Scheduled Referrals Name Type Priority [...] documented as of this encounter Care Teams Extern Relationship Specialty Start Date End Date Enedina Mcguire APRN [address] [place] [address] [phone] PCP - General 12/04/22 Lj Tapia APRN [facility] [place] [address] Referring Physician Gastroenterology 07/18/22 documented as of this encounter
--- OUTSIDE RECORDS SUMMARY | 2024-10-05 23:12 | XMS_ITS | Encounter Summary ---
Author Organization [facility] Address [facility] [place] [address] Care Team Providers Care Seasonal Sales Associate Name Role Phone Enedina Mcguire NP Primary Care Provider [phone] Source Comments This information has been disclosed [...] release of HIV test results or diagnoses. [id number] Reason for Referral * Surgical (Routine) - New Request Specialty Diagnoses / Procedures Referred By Shane hernadez Referred To Contact Gastroenterology Diagnoses Alcoholic cirrhosis of liver with ascites (CMS-HCC) Procedures Case request GI: EGD Gerri Peterson MD [address] [place] [address] Phone: tel: fax: Referral ID Status Reason Start Date Expiration Date V isits Requested Visits Authorized [id number] New Request 10/08/2024 04/06/2025 1 1 Reason for Visit * Auth/Cert (Routine) Specialty Diagnoses / Procedures Referred By Shane hernadez Referred To Contact General Internal Medicine Diagnoses [facility] [address] [place] [address] Phone: tel: Referral ID Status Reason Start Date Expiration Date Visits Re quested Visits Authorized [id number] 1 1 Encounter Details Date Type Department Care Team (Latest Contact Info) Description 10/05/2024 11:12 PM EDT - 10/17/2024 10:29 AM EDT Hospital Encounter [facility] [address] [place] [id number] Angie Blanchard MD [address] [place], [place] [id number] Fouzia Rene MD [address] [place] [address] Med/[place] [address] Chelsy Lerner MD [address] [place] [address] [place] [address] Alcoholic cirrhosis of liver with [...] Recorded In the past 12 months has [employer], [employer], oil, or water [employer] threatened to shut off services in your [...] living in a correction (including now)? No 10/06/2024 Yearly Questionnaire Answer [...] Kandy Fuentes - 10/17/2024 10:29 AM EDT [facility] Care Management Discharge Summary Patient name: [...] Home post discharge: Not Applicable Kandy BAE [facility] [phone] * William Blount MD - 10/17/2024 8:50 AM EDT [facility] Inpatient Discharge Summary Patient: Julien Gilbert Age: 39 y.o. CSN: [id number] Date of Admission: 10/05/2024 Date of Discharge: [...] Case IDs Date Procedure Surgeon Location Status [id number] 10/10/24 EGD Lino Soto MD ENDOSCOPY Comp [id number] 10/14/24 Left Heart Cath Irving Matta MD [...] at 10/08/2024 1:12 PM EDT US Duplex Skg-Jes-Zhnjepq Comp Final Result IMPRESSION: ABDOMEN 1. Cirrhotic [...] 90 tablet Refills: 0 naloxone 4 mg/actuation [place] Commonly known as: NARCAN Apply 1 spray [...] Your Medications These medications were sent to [facility] [address] [place] [address] Hours: Sunday - Sunday: 8:00AM - 6:00PM FLUoxetine 20 MG capsule lactulose 10 gram/15 mL solution loratadine 10 mg tablet methocarbamoL 500 MG tablet midodrine 10 MG tablet naloxone 4 mg/actuation [place] oxyCODONE 5 MG immediate release tablet Discharge [...] Order Questions: Select Supplement: Boost-1 kcal/ml supplement ([facility] only) As listed above, low sodium [...] AM EDT 10/17/2024 naloxone (NARCAN) 4 mg/actuation [place] Apply 1 spray in one nostril if [...] 12 tablet 10/17/2024 10:24 AM EDT 10/17/2024 06/09/202 5 ciprofloxacin HCl (CIPRO) 500 MG tablet [...] MD - 10/17/2024 10:23 AM EDT [facility] PROGRESS NOTE Name: Julien Gilbert CSN: [id number] Consulted by: Chelsy Lerner MD Reason for [...] Yes Past Week naloxone (NARCAN) 4 mg/actuation [place] Apply 1 spray in one nostril if [...] nucleated cells, <2000 RBCs 10% Polynuclear, 90% [place] nuc. There were initial reports of gram [...] of chemical dependency treatment as outpatient. - [facility] with no obstructive coronary disease - Psych eval for PTSD With recommendation of sertraline - Given his renal dysfunction, will plan to list for [facility] when he qualifies on 10/22/2024. Labs next week - Plan for d/c today Bobby Sidhu MD Transplant [place] [employer] Please see the body of the resident, [...] remains <30 until October 22. Waiting for [facility] today. ASSESSMENT NADIYA on CKD, last discharge [...] Staff. Jeremiah Gamino PGY4 Nephrology. Pager no. [phone] Chief Complaint No chief complaint on file. [...] visitis Acute kidney injury superimposed on CKD ([facility]). No acute events overnight. No chest [...] at 10/08/2024 1:12 PM EDT US Duplex Vyr-Okj-Jyzpmwb Comp Final Result IMPRESSION: ABDOMEN 1. Cirrhotic [...] no head imaging has been performed at [facility]. -CT Head w/o contrast -Imaging showed [...] Order Questions: Select Supplement: Boost-1 kcal/ml supplement ([facility] only) Code Status: Full Code Signed: [...] another specialty or practice, other licensed professional (PT/OT/ACOUSTICAL INSTALLER/RT), or a non-medical community professional: Hepatology, Interventional [...] due to positioning during LHC on 10/14. [place] the worst in CVR, but has improved [...] Kumar RD - 10/16/2024 1:08 PM EDT [facility] Medical Nutrition Therapy Follow-Up Diet Order/Nutrition Support: Regular diet, Boost TID - Vanilla preference Pertinent Information: This is a 39 year old male history of ETOH cirrhosis d/b HE, ascites with SBP who is admitted for AMS. Precipitant of his HE likely SBP. Diagnostic paracentesis at OSH reportedly showed 61 nucleated cells, <2000 RBCs 10% Polynuclear, 90% [place] nuc. There were initial reports of gram [...] Based on CBW of 119.5 kg Kcals/day: 8990-6318 (18-21 kcals/kg) Protein g/day: 119-143 (1-1.2 g/kg) [...] Kumar RD, LD Clinical Dietitian Contact via [employer] * Jerad Hughes MD - 10/16/2024 11:03 AM EDT [facility] PROGRESS NOTE Name: Julien Gilbert CSN: [id number] Consulted by: Chelsy Lerner MD Reason for [...] nucleated cells, <2000 RBCs 10% Polynuclear, 90% [place] nuc. There were initial reports of gram [...] of chemical dependency treatment as outpatient. - [facility] with no obstructive coronary disease - Psych eval for PTSD With recommendation of sertraline - Given his renal dysfunction, will plan to list for [facility] when he qualifies on 10/22/2024. - Will follow Bobby Sidhu MD Transplant [place] [employer] Please see the body of the resident, [...] remains <30 until October 22. Waiting for [facility] today. ASSESSMENT NADIYA on CKD, last discharge [...] COMMENT on 10/08/2024 Iron%- Iron replete PLAN -[facility] yesterday- patient remains at risk of contrast related injury on top of exisiting NADIYA for 24-48 hrs after contrast load. -He is volume overloaded -patient needs to follow up closely with nephrology after discharge Thank you for allowing us to participate in this patient's care. Discussed with Consult Staff. Jeremiah Gamino PGY4 Nephrology. Pager no. [phone] Chief Complaint No chief complaint on file. [...] visitis Acute kidney injury superimposed on CKD ([facility]). NAEON. Pt's LHC yesterday without concern for [...] at 10/08/2024 1:12 PM EDT US Duplex Lzk-Ohl-Akrknmj Comp Final Result IMPRESSION: ABDOMEN 1. Cirrhotic [...] no head imaging has been performed at [facility]. -CT Head w/o contrast -Imaging showed [...] Order Questions: Select Supplement: Boost-1 kcal/ml supplement ([facility] only) Code Status: Full Code Signed: WILLIAM BLOUNT MD 10/15/2024, 10:49 AM Cosigned by Chelsy Lerner MD at 10/15/2024 2:47 PM EDT Associated attestation - Chelsy Lrener MD - 10/15/2024 2:47 PM EDT [facility] Medicine Attending Supervision Note Julien [...] another specialty or practice, other licensed professional (PT/OT/ACOUSTICAL INSTALLER/RT), or a non-medical community professional: Hepatology, Interventional [...] due to positioning during LHC on 10/14. [place] the worst in CVR, but has improved [...] MD - 10/15/2024 10:15 AM EDT [facility] PROGRESS NOTE Name: Julien Gilbert CSN: [id number] Consulted by: Chelsy Lerner MD Reason for [...] nucleated cells, <2000 RBCs 10% Polynuclear, 90% [place] nuc. There were initial reports of gram [...] of chemical dependency treatment as outpatient. - [facility] yesterday with no obstructive coronary disease - Psych eval for PTSD and medical management - Given his renal dysfunction, will plan to list for [facility] when he qualifies on 10/22/2024. - Will follow Bobby Sidhu MD Transplant [place] Please see the body of the resident, [...] Quan MD - 10/14/2024 2:34 PM EDT [facility] Department of Cardiovascular Health and Diseases [...] remains <30 until October 22. Waiting for [facility] today. ASSESSMENT NADIYA on CKD, last discharge [...] Staff. Jeremiah Gamino PGY4 Nephrology. Pager no. [phone] Chief Complaint No chief complaint on file. [...] shortness of breath. Pt is scheduled for [facility] today. Patient is alert and oriented x4. [...] at 10/08/2024 1:12 PM EDT US Duplex Ydx-Vic-Bppuqyx Comp Final Result IMPRESSION: ABDOMEN 1. Cirrhotic [...] no head imaging has been performed at [facility]. -CT Head w/o contrast -Imaging showed [...] never required dialysis. Patient is going for [facility] today and will receive contrast, okay per [...] Order Questions: Select Supplement: Boost-1 kcal/ml supplement ([facility] only) Code Status: Full Code Signed: [...] another specialty or practice, other licensed professional (PT/OT/ACOUSTICAL INSTALLER/RT), or a non-medical community professional: Hepatology, Interventional [...] attempted stress TTE for work up. - [facility] today for continued cardiac work up prior [...] MD - 10/14/2024 7:42 AM EDT [facility] PROGRESS NOTE Name: Julien Gilbert CSN: [id number] Consulted by: Chelsy Lerner MD Reason for [...] nucleated cells, <2000 RBCs 10% Polynuclear, 90% [place] nuc. There were initial reports of gram [...] eval ongoing. Transplant work up ongoing - [facility] today - Transplant nephrology following for consideration [...] - Will follow Bobby Sidhu MD Transplant [place] [employer] Please see the body of the resident, [...] Referring physician: Fouzia Rene MD Summary Julien Gilebrt is 39 y.o. male with liver cirrhosis, [...] patient's care. Discussed with Consult Staff. Jeremiah Gmaino PGY4 Nephrology. Pager no. [phone] Chief Complaint No chief complaint on file. [...] Hypertension, Other hyperlipidemia (07/26/2024), Renal cell carcinoma ([facility]), Thrombocytopenia ([facility]), and Thyroid disease. he has a [...] MD - 10/13/2024 12:33 PM EDT [facility] PROGRESS NOTE Name: Julien Gilbert CSN: [id number] Consulted by: Fouzia Rene MD Reason for [...] nucleated cells, <2000 RBCs 10% Polynuclear, 90% [place] nuc. There were initial reports of gram [...] eval ongoing. Transplant work up ongoing - [facility] today - Transplant nephrology following for consideration [...] - Will follow Bobby Sidhu MD Transplant [place] [employer] Please see the body of the resident, [...] any interval liver pathology. * Rebekah Linares, [facility] - 10/13/2024 12:30 PM EDT Start Time: [...] no psychomotor abnormalities Cognition: short term and jail memory intact Attitude: cooperative Affect: full range [...] Fabian, RD - 10/13/2024 10:49 AM EDT [facility] Medical Nutrition Therapy Reason(s) for Completion: [...] Order Questions: Select Supplement: Boost-1 kcal/ml supplement ([facility] only) Pertinent Information: Julien Gilbert is [...] kg) Body mass index is 32.07 kg/m??. [place] Body Weight: 202 lbs (91.8 kg) +/- 10% Weight History: Wt Readings from Last 10 Encounters: 10/10/24 (!) 263 lb 8 oz (119.5 kg) 09/05/24 (!) 262 lb 9.6 oz (119.1 kg) 09/02/24 (!) 258 lb (117 kg) 08/17/24 (!) 242 lb 11.2 oz (110.1 kg) 07/28/24 (!) 245 lb (111.1 kg) Estimated Nutrition Needs: Based on CBW of 119.5 kg Kcals/day: 8441-5374 (18-21 kcals/kg) Protein g/day: 119-143 (1-1-2 g/kg) [...] Dietitian - Solid Organ Transplant Contact via [employer] Chat * Eileen Schroeder MD, PhD - 10/13/2024 8:19 AM EDT Department of Internal Medicine Daily Progress Note Chief Complaint / Reason for Follow-Up Julien Gilbert is a 39 y.o. male on hospital day 8. The principal reason for today's follow up visit is Acute kidney injury superimposed on CKD (CMS-HCC). KARENEMERLINE Pt felt well this AM. A&O x [...] at 10/08/2024 1:12 PM EDT US Duplex Zcc-Fwy-Kvhvubh Comp Final Result IMPRESSION: ABDOMEN 1. Cirrhotic [...] no head imaging has been performed at [facility]. -CT Head w/o contrast -Imaging showed [...] Order Questions: Select Supplement: Boost-1 kcal/ml supplement ([facility] only) Code Status: Full Code Signed: [...] reviewed the documentation by the medical steam shovel operating engineer and agree as documented. Any additions or [...] for Acute kidney injury superimposed on CKD ([facility]) Active Problems: NADIYA (acute kidney injury) on CKD ([facility]): Hepatorenal syndrome. Appreciate nephrology consult. S/p albumin X3. Baseline creatinine presumed to be around 2.5. Creatinine now seems to be fluctuating between 2.5-2.9 which may be his new baseline. We will continue to monitor. Spontaneous Bacterial Peritonitis ([facility]): Received 4 days of vancomycin, Ceftriaxone x 5d. Recent therapeutic paracentesis shows resolution. Continue Cipro prophylaxis Anemia: Multiple contributors. S/p 1 unit PRBC. Hemoglobin responded appropriately and remained stable. Will continue to monitor. Metabolic encephalopathy: Resolved. Likely related to combination of hepatic, metabolic, and possibly infectious insults. - Continue home lactulose and rifaximin Decompensated cirrhosis ([facility]): Appreciate hepatology consult. He has started [...] was non-diagnostic due to hypotension. Plan for [facility] today, but now moved to tomorrow. - [...] another specialty or practice, other licensed professional (PT/OT/ACOUSTICAL INSTALLER/RT), or a non-medical community professional: Nephrology, Hepatology [...] \ 3.64 / 40 \ / / 99 \ PT/INR/PTT - 10/12/2024 PT [...] at 10/08/2024 1:12 PM EDT US Duplex Cfk-Bkg-Tzxyfxu Comp Final Result IMPRESSION: ABDOMEN 1. Cirrhotic [...] no head imaging has been performed at [facility]. -CT Head w/o contrast -Imaging showed [...] Order Questions: Select Supplement: Boost-1 kcal/ml supplement ([facility] only) Code Status: Full Code Signed: [...] reviewed the documentation by the medical steam shovel operating engineer and agree as documented. Any additions or clarifications are listed below. Daily plan was discussed with patient at bedside and questions addressed. Patient ID: Julien Gilbert is a 39 y.o. male currently admitted for Acute kidney injury superimposed on CKD ([facility]) Supplemental History/ ROS: No acute events [...] another specialty or practice, other licensed professional (PT/OT/ACOUSTICAL INSTALLER/RT), or a non-medical community professional: Nephrology, Hepatology [...] tid. cardiac workup pre txp. pLan for [facility] Sunday Liver transplant workup per GI/ Primary [...] concern for hepatorenal syndrome.` Patient came from [facility], paracentesis was performed yesterday [...] 706.9 (H) 10/08/2024 No results found for: [id number] , FOLATE Lab Results Component Value Date [...] CRUR No results found for: MICROALBUR , [id number] In addition to the above an extensive [...] 4.6 10/12/2024 Lab Results Component Value Date FGRQ16M 7.1 (L) 10/08/2024 PLAN Monitor renal panel No indication for dialysis Pt seen by [facility] neph for SLK assessment -not a candidate [...] AM Colten Huertas MD, KISHOR LIN, CATHYF it support technician Div. of Nephrology [facility] E-mail: [email or web address] This note was completely edited, written and [...] Rene MD Interval hx No issues. Pending [facility]. Assessment: Renal Function: Cr: 2.77 Bun: 49 [...] concern for hepatorenal syndrome.` Patient came from [facility], paracentesis was performed yesterday [...] 706.9 (H) 10/08/2024 No results found for: [id number] , FOLATE Lab Results Component Value Date [...] CRUR No results found for: MICROALBUR , [id number] In addition to the above an extensive [...] 3.5 10/11/2024 Lab Results Component Value Date ZIUX72F 7.1 (L) 10/08/2024 PLAN Monitor renal panel [...] AM Colten Huertas MD, KISHOR LIN, FNKF it support technician Div. of Nephrology [facility] E-mail: [email or web address] This note was completely edited, written and [...] is Acute kidney injury superimposed on CKD ([facility]). NAEON Pt felt much better today. [...] at 10/08/2024 1:12 PM EDT US Duplex Tva-Mxy-Rrvcnlw Comp Final Result IMPRESSION: ABDOMEN 1. Cirrhotic liver morphology. No suspicious hepatic lesion. 2. Moderate volume of ascites. 3. Splenomegaly. LIVER DOPPLER 1. Patent hepatic vasculature with normal directional flow. 2. Recanalized umbilical vein as a sequela of portal hypertension, with multiple venous collateralsbordering the falciform ligament. Findings similar to prior. Report Verified by: Alberto Rodrgiuez MD at 10/07/2024 4:26 PM EDT US [...] from outside facility. Will engage with them daily([phone]. Ask to speak to a tech) about [...] no head imaging has been performed at [facility]. -CT Head w/o contrast -Imaging showed [...] Order Questions: Select Supplement: Boost-1 kcal/ml supplement ([facility] only) Code Status: Full Code Signed: [...] reviewed the documentation by the medical steam shovel operating engineer and agree as documented. Any additions or clarifications are listed below. Daily plan was discussed with patient at bedside and questions addressed. Patient ID: Julien Gilbert is a 39 y.o. male currently admitted for Acute kidney injury superimposed on CKD ([facility]) Supplemental History/ ROS: No acute events [...] for Acute kidney injury superimposed on CKD ([facility]) Active Problems: Spontaneous Bacterial Peritonitis (CMS-HCC): [...] another specialty or practice, other licensed professional (PT/OT/ACOUSTICAL INSTALLER/RT), or a non-medical community professional: Nephrology, Hepatology, [...] Strictly monitor urine output No Indication for MANAGER STRATEGIC 3. Not a candidate for terlipressin per [...] Ignacio Queen MD Renal Fellow Pager # [phone] Chief Complaint No chief complaint on file. [...] concern for hepatorenal syndrome.` Patient came from [facility], paracentesis was performed yesterday [...] PHOS -- < > 3.5 3.4 3.3 JYKO49M 7.1* -- -- -- -- < > = values in this interval not displayed. Lab Results Component Value Date IRON 81 10/08/2024 TIBC SEE COMMENT 10/08/2024 FERRITIN 706.9 (H) 10/08/2024 No results found for: [id number] , FOLATE Lab Results Component Value Date [...] CRUR No results found for: MICROALBUR , [id number] In addition to the above an extensive [...] 3.3 10/10/2024 Lab Results Component Value Date RTIP04B 7.1 (L) 10/08/2024 PLAN Continue IV albumin [...] AM Colten Huertas MD, KISHOR LIN FNKF it support technician Div. of Nephrology [facility] E-mail: [email or web address] This note was completely edited, written and [...] to follow pt while pt is at [facility]. * Jodi Ortiz PharmD - 10/10/2024 10:27 AM EDT Clinical Pharmacy Service: Vancomycin Consult Progress Note Patient has been transitioned off of vancomycin therapy per team notes and orders. Pharmacy will sign-off at this time, please do not hesitate to consult again as needs arise. Thank you for involving pharmacy in the care of this patient. Jodi Ortiz PharmD Clinical Circulation Supervisor, Internal Medicine Preferred contact: [employer] [facility] Ukhfbht-Ys-Cozg Pager: [phone] October 10, 2024 10:27 AM Laboratory Data [...] 10/07/2024 10:50 PM Giardia Cryptosporidium Antigens Final [id number] 10/07/2024 10:50 PM Ova and Parasite Comprehensive w/ Giardia/Crypto Final [id number] Feces 10/06/2024 1:04 AM #2 Blood culture-Peripheral site 2 Preliminary [id number] Peripheral 10/06/2024 1:04 AM #1 Blood culture-Peripheral site 1 Preliminary [id number] Peripheral Pharmacokinetics Lab Results (Last 7 days) Today 0523 Yesterday 04510/08 0536 Vanc Rdm 16.4 11.0 16.0 * Gerri Peterson MD - 10/10/2024 10:09 AM EDT [facility] PROGRESS NOTE Name: Julien Gilbert CSN: [id number] Consulted by: Fouzia Rene MD Reason for [...] nucleated cells, <2000 RBCs 10% Polynuclear, 90% [place] nuc. Per OSH reports, ascitic fluid cultures [...] to achieving target HR. -cardiology consult for [facility] on Sunday - Transplant nephrology following for [...] from the original note were not included. [facility] Clinical Pharmacy Service: Vancomycin Monitoring Consult [...] in sodium chloride 0.9 % 250 mL Saia2Eet (Completed) 1,500 mg Once 10/09/2024 10/09/2024 Admin Instructions: Contact pharmacy if there is a question/concern of whether vancomycin should begiven based on serum drug levels. Use Yvxr2Vas Adapter - Mix Thoroughly Before Administration Route: Intravenous vancomycin (VANCOCIN) 1,500 mg in sodium chloride 0.9 % 250 mL Mohq8Vrq 1,500 mg Once 10/10/2024 10/11/2024 Admin Instructions: Contact pharmacy if there is a question/concern of whether vancomycin should begiven based on serum drug levels. Use Mycm5Xff Adapter - Mix Thoroughly Before Administration Route: [...] in sodium chloride 0.9 % 250 mL Lgri6Bkq 1,500 mg 166.7 mL/hr 10/08/24 1259 New Bag vancomycin (VANCOCIN) 1,000 mg in sodium chloride 0.9 % 250 mL Secv0Kpa 1,000 mg 250 mL/hr --Objective Data-- Vitals: 10/10/24 0248 10/10/24 0654 10/10/24 0720 05/30/25 0850 BP: 107/62 102/55 Pulse: 94 98 93 Resp: 18 16 Temp: 98 ??F (36.7 ??C) TempSrc: Oral SpO2: 100% 100% 99% Weight: (!) 263 lb 8 oz (119.5 kg) No intake/output data recorded. WBC, BUN, Creatinine (Last 7 days) Today 0523 Yesterday 1305 Yesterday 0814 WBC 5.1 -- -- BUN 53 53 54 Creatinine 2.85 2.89 3.04 [place] body weight: 86.8 kg (191 lb 5.7 oz) Adjusted ideal body weight: 99.9 kg (220 lb 3.5 oz) Estimated CrCl: ~35-45 mL/min --Cultures-- Microbiology Results Date and Time Order Name Sensitivity Status Organisms Specimen ID Source 10/07/2024 10:50 PM Giardia Cryptosporidium Antigens Final [id number] 10/07/2024 10:50 PM Ova and Parasite Comprehensive w/ Giardia/Crypto Final [id number] Feces 10/06/2024 1:04 AM #2 Blood culture-Peripheral site 2 Preliminary [id number] Peripheral 10/06/2024 1:04 AM #1 Blood culture-Peripheral site 1 Preliminary [id number] Peripheral --Vancomycin Concentrations-- Lab Results (Last 7 [...] for the consult. Jodi Ortiz PharmD Clinical Circulation Supervisor, Internal Medicine Preferred contact: [employer] [facility] Lalrltj-Ip-Fkfq Pager: [phone] October 10, 2024 9:13 AM * Eileen [...] at 10/08/2024 1:12 PM EDT US Duplex Zxm-Sxf-Mnqardo Comp Final Result IMPRESSION: ABDOMEN 1. Cirrhotic [...] from outside facility. Will engage with them daily([phone]. Ask to speak to a [employer]) about culture data updates. #Aphasia Patient appears [...] no head imaging has been performed at [facility]. -CT Head w/o contrast -Imaging showed [...] Order Questions: Select Supplement: Boost-1 kcal/ml supplement ([facility] [facility] Code Status: Full Code Signed: [...] reviewed the documentation by the medical steam shovel operating engineer and agree as documented. Any additions or clarifications are listed below. Daily plan was discussed with patient at bedside and questions addressed. Patient ID: Julien Gilbert is a 39 y.o. male currently admitted for Acute kidney injury superimposed on CKD ([facility]) Supplemental History/ ROS: [...] for Acute kidney injury superimposed on CKD ([facility]) Active Problems: Spontaneous Bacterial Peritonitis ([facility]): Cultures from OSH were reported [...] another specialty or practice, other licensed professional (PT/OT/ACOUSTICAL INSTALLER/RT), or a non-medical community professional: Nephrology, Hepatology, [...] Strictly monitor urine output No Indication for MANAGER STRATEGIC Not a candidate for terlipressin per liver due to HE, liver and kidney failure, on midodrine tid. Considering para today, cardiac workup pre txp Liver transplant workup per GI/ Primary team, considering for SLK, seen by renal transplant team Thank you for allowing us to participate in this patient's care. Discussed with Consult Staff. Ignacio Queen MD Renal Fellow Pager # [phone] Chief Complaint No chief complaint on file. [...] concern for hepatorenal syndrome.` Patient came from [facility], paracentesis was performed yesterday [...] 9.0 9.3 PHOS -- 3.5 3.5 3.4 QRWU57L 7.1* -- -- -- Lab Results Component Value Date IRON 81 10/08/2024 TIBC SEE COMMENT 10/08/2024 FERRITIN 706.9 (H) 10/08/2024 No results found for: [id number] , FOLATE Lab Results Component Value Date [...] CRUR No results found for: MICROALBUR , [id number] In addition to the above an extensive [...] 3.4 10/09/2024 Lab Results Component Value Date QRKF25V 7.1 (L) 10/08/2024 PLAN Continue IV albumin Monitor renal panel No indication for dialysis Pt seen by Santhohs meza for SLK assessment -not a candidate [...] PM Colten Huertas MD, KISHOR LIN FNKF it support technician Div. of Nephrology [facility] E-mail: [email or web address] This note was completely edited, written and [...] MD - 10/09/2024 1:07 PM EDT [facility] HEPATOLOGY PROGRESS NOTE Name: Julien Gilbert CSN: [id number] Consulted by: Fouzia Rene MD Reason for [...] nucleated cells, <2000 RBCs 10% Polynuclear, 90% [place] nuc. Fluid cultures reportedly grew gram + [...] and have discussed the case with Dr. Peterosn, agree with his note and confirm it. [...] from the original note were not included. [facility] Clinical Pharmacy Service: Vancomycin Monitoring Consult [...] in sodium chloride 0.9 % 250 mL Rxvp2Fdc (Completed) 1,000 mg Once 10/08/2024 10/08/2024 Admin Instructions: Contact pharmacy if there is a question/concern of whether vancomycin should begiven based on serum drug levels. Use Ykma6Lbr Adapter - Mix Thoroughly Before Administration Route: Intravenous vancomycin (VANCOCIN) 1,500 mg in sodium chloride 0.9 % 250 mL Rguh4Ebx 1,500 mg Once 10/09/2024 10/10/2024 Admin Instructions: Contact pharmacy if there is a question/concern of whether vancomycin should begiven based on serum drug levels. Use Mfud6Wkk Adapter - Mix Thoroughly Before Administration Route: [...] in sodium chloride 0.9 % 250 mL Ubty7Upk 1,000 mg 250 mL/hr 10/06/24 1413 New [...] 10/07/2024 10:50 PM Giardia Cryptosporidium Antigens Final [id number] 10/07/2024 10:50 PM Ova and Parasite Comprehensive w/ Giardia/Crypto Final [id number] Feces 10/06/2024 1:04 AM #2 Blood culture-Peripheral site 2 Preliminary [id number] Peripheral 10/06/2024 1:04 AM #1 Blood culture-Peripheral site 1 Preliminary [id number] Peripheral --Vancomycin Concentrations-- Lab Results (Last 7 [...] for the consult. Jodi Ortiz PharmD Clinical Circulation Supervisor, Internal Medicine Preferred contact: [employer] [facility] Jbbqypj-Hb-Ajgc Pager: [phone] October 09, 2024 8:29 AM * Eileen Schroeder MD, PhD - 10/09/2024 8:00 AM EDT Department of Internal Medicine Daily Progress Note Chief Complaint / Reason for Follow-Up Julien Gilbert is a 39 y.o. male on hospital day 4. The principal reason for today's follow up visit is Acute kidney injury superimposed on CKD ([facility]). KARENEON and father at bedside Pt [...] at 10/08/2024 1:12 PM EDT US Duplex Cut-Hey-Uribzem Comp Final Result IMPRESSION: ABDOMEN 1. Cirrhotic [...] from outside facility. Will engage with them daily([phone]. Ask to speak to a tech) about [...] no head imaging has been performed at [facility]. -CT Head w/o contrast -Imaging showed [...] Order Questions: Select Supplement: Boost-1 kcal/ml supplement ([facility] only) Code Status: Full Code Signed: [...] reviewed the documentation by the medical steam shovel operating engineer and agree as documented. Any additions or clarifications are listed below. Daily plan was discussed with patient at bedside and questions addressed. Patient ID: Julien Gilbert is a 39 y.o. male currently admitted for Acute kidney injury superimposed on CKD ([facility]) Supplemental History/ ROS: No acute [...] for Acute kidney injury superimposed on CKD ([facility]) Active Problems: Anemia: S/p 1 unit PRBC from yesterday. Hemoglobin responded appropriately and remained stable. Will continue to monitor. Metabolic encephalopathy: Mostly resolved. Likely related to combination of hepatic, metabolic, andpossibly infectious insults. - Continue home lactulose and rifaximin Spontaneous Bacterial Peritonitis ([facility]): Cultures from OSH are growing gram- positive organisms.We continue to await speciation. He remains afebrile and vital signs have been stable. - Continue vancomycin and ceftriaxone for now. - Will follow-up on speciation and sensitivities. Decompensated cirrhosis ([facility]): Appreciate hepatology consult. He has started his transplant evaluation and will continue while inpatient. - MELD labs daily - Continue home regimen with ursodiol, rifaximin and lactulose - Start midodrine 3 times daily - EGD postponed until tomorrow -Planning for stress test today - Due for therapeutic paracentesis in the next day or so. NADIYA (acute kidney injury) on CKD ([facility]): Appreciate nephrology consult. Likely due to hepatorenal [...] another specialty or practice, other licensed professional (PT/OT/ACOUSTICAL INSTALLER/RT), or a non-medical community professional: Nephrology, Hepatology Labs reviewed (1 pt each): CBC, CMP, INR & other daily labs Review of notes from a different specialty or different practice: Nephrology, Anesthesiology hepatology, * Gerri Peterson MD - 10/08/2024 1:40 PM EDT [facility] HEPATOLOGY PROGRESS NOTE Name: Julien Gilbert CSN: [id number] Consulted by: Fouzia Rene MD Reason for [...] hyperlipidemia 07/26/2024 Renal cell carcinoma (CMS-HCC) Thrombocytopenia ([facility]) Thyroid disease History reviewed. No pertinent [...] nucleated cells, <2000 RBCs 10% Polynuclear, 90% [place]van[place] nuc. Fluid cultures reportedly grew gram + [...] disease (ESRD) [facility], or home setting. -At the time [...] I have discussed this plan with the background check coordinator and the liver transplant team. Cosigned [...] from the original note were not included. [facility] Clinical Pharmacy Service: Vancomycin Monitoring Consult [...] in sodium chloride 0.9 % 250 mL Ijml8Alq 1,000 mg Once 10/08/2024 10/09/2024 Admin Instructions: Contact pharmacy if there is a question/concern of whether vancomycin should begiven based on serum drug levels. Use Kpwf2Gjw Adapter - Mix Thoroughly Before Administration Route: [...] 10/07/2024 10:50 PM Giardia Cryptosporidium Antigens Final [id number] 10/07/2024 10:50 PM Ova and Parasite Comprehensive w/ Giardia/Crypto In process [id number] Feces 10/06/2024 1:04 AM #2 Blood culture-Peripheral site 2 Preliminary [id number] Peripheral 10/06/2024 1:04 AM #1 Blood culture-Peripheral site 1 Preliminary [id number] Peripheral --Vancomycin Concentrations-- Lab Results (Last 7 [...] for the consult. Jodi Ortiz PharmD Clinical Circulation Supervisor, Internal Medicine Preferred contact: [employer] [facility] Qkdtcmn-Oo-Yinu Pager: [phone] October 08, 2024 9:13 AM * Eileen [...] FREET4 0.74 09/03/2024 Diagnostic Studies US Duplex Wsw-Njf-Zxvqjip Comp Final Result IMPRESSION: ABDOMEN 1. Cirrhotic [...] no head imaging has been performed at [facility]. -CT Head w/o contrast -Imaging showed [...] Order Questions: Select Supplement: Boost-1 kcal/ml supplement ([facility] only) Code Status: Full Code Signed: [...] reviewed the documentation by the medical steam shovel operating engineer and agree as documented. Any additions or [...] home lactulose and rifaximin Spontaneous Bacterial Peritonitis ([facility]): Cultures from OSH are growing gram- [...] tomorrow NADIYA (acute kidney injury) on CKD ([facility]): Appreciate nephrology consult. Likely has hepatorenal [...] (CMS-HCC) Acute kidney injury superimposed on CKD ([facility]) Thrombocytopenia ([facility]) Renal mass, left Metabolic acidosis with normal anion gap and bicarbonate losses GERD (gastroesophageal reflux disease) Anemia SBP (spontaneous bacterial peritonitis) ([facility]) Neck pain with history of cervical [...] another specialty or practice, other licensed professional (PT/OT/ACOUSTICAL INSTALLER/RT), or a non-medical community professional: Nephrology, Hepatology [...] Strictly monitor urine output No Indication for MANAGER STRATEGIC Not a candidate for terlipressin per liver due to HE, liver ans kidney failure, on midodrine tid Liver transplant workup per GI/ Primary team, considering for SLK Thank you for allowing us to participate in this patient's care. Discussed with Consult Staff. Ignacio Queen MD Renal Fellow Pager # [phone] Chief Complaint No chief complaint on file. [...] concern for hepatorenal syndrome.` Patient came from [facility], paracentesis was performed yesterday [...] TIBC , FERRITIN No results found for: [id number] , FOLATE Lab Results Component Value Date [...] <15 No results found for: MICROALBUR , RYDL21EEL In addition to the above an extensive [...] PM EDT ATTESTATION I saw Mr/Ms Julien Justin with renal fellow / consult team I [...] medical history of Alcoholic cirrhosis of liver ([facility]), Alcoholic hepatitis, Esophageal varices (CMS-HCC), Hepatorenal [...] 4.0 10/08/2024 Lab Results Component Value Date SXUS97T 7.1 (L) 10/08/2024 PLAN Continue IV albumin [...] AM Colten Huertas MD, KISHOR LIN FNKF it support technician Div. of Nephrology [facility] E-mail: [email or web address] This note was completely edited, written and [...] from the original note were not included. [facility] Clinical Pharmacy Service: Vancomycin Monitoring Consult [...] AM #2 Blood culture-Peripheral site 2 Preliminary [id number] Peripheral 10/06/2024 1:04 AM #1 Blood culture-Peripheral site 1 Preliminary [id number] Peripheral --Vancomycin Concentrations-- Lab Results (Last 7 [...] for the consult. Jodi Ortiz PharmD Clinical Circulation Supervisor, Internal Medicine Preferred contact: [employer] [facility] Vhkksdm-Yu-Ceus Pager: [phone] October 07, 2024 5:01 PM * Yamile [...] MD - 10/07/2024 11:33 AM EDT [facility] HEPAT[facility]Y PROGRESS NOTE Name: Julien Gilbert CSN: [id number] Consulted by: Fouzia Rene MD Reason for [...] nucleated cells, <2000 RBCs 10% Polynuclear, 90% [place]van[place] nuc. Fluid cultures reportedly grewgram + rods. [...] Dr Soto. Recommendations are final following attestation GRERI PETERSON MD PGY-5 10/07/2024, 11:33 AM [1] [...] liver selection meeting and clearance by social scientist. Please order CT cardiac coronary evaluation, transplant [...] Strictly monitor urine output No Indication for MANAGER STRATEGIC Liver transplant workup per GI/ Primary team Thank you for allowing us to participate in this patient's care. Discussed with Consult Staff. Ignacio Queen MD Renal Fellow Pager # [phone] Chief Complaint No chief complaint on file. [...] concern for hepatorenal syndrome.` Patient came from [facility], paracentesis was performed yesterday [...] TIBC , FERRITIN No results found for: [id number] , FOLATE Lab Results Component Value Date [...] <15 No results found for: MICROALBUR , [id number] In addition to the above an extensive [...] PHOS 4.2 10/07/2024 No results found for: AKCZ25G PLAN Continue IV albumin Monitor renal panel [...] AM Colten Huertas MD, KISHOR LIN FNKF it support technician Div. of Nephrology [facility] E-mail: [email or web address] * Carmen Bernal OT - 10/07/2024 11:09 AM EDT Occupational Therapy Initial Assessment and Discharge Name: Julien Gilbert : 1985 Attending Physician: Fouzia Rene MD Admission Diagnosis: AMS Date: 10/07/2024 Room: [address] [place] [address] Reviewed Pertinent hospital course: Yes Hospital Course [...] History: Diagnosis Date Alcoholic cirrhosis of liver ([facility]) Alcoholic hepatitis Esophageal varices ([facility]) Hepatorenal syndrome ([facility]) Hypertension Other hyperlipidemia 07/26/2024 Renal cell [...] at 10/06/2024 2:33 AM EDT US Duplex Coj-Uxv-Ejwdmji Comp (Results Pending) US Abdomen Complete (Results [...] no head imaging has been performed at [facility]. -CT Head w/o contrast -Imaging showed [...] Order Questions: Select Supplement: Boost-1 kcal/ml supplement ([facility] only) Code Status: Full Code Signed: [...] reviewed the documentation by the medical steam shovel operating engineer and agree as documented. Any additions or [...] rifaximin and lactulose NADIYA (acute kidney injury) ([facility]): Appreciate nephrology consult. Likely has hepatorenal [...] needed for pain. Continue to monitor. Thrombocytopenia ([facility]) Renal mass, left CKD (chronic kidney disease) stage 4, GFR 15-29 ml/min ([facility]) Metabolic acidosis with normal anion [...] another specialty or practice, other licensed professional (PT/OT/ACOUSTICAL INSTALLER/RT), or a non-medical community professional: Nephrology, Hepatology Labs reviewed (1 pt each): CMP, CBC Test results reviewed (1 pt each): CXR, Head CT Review of notes from a different specialty or different practice: Nephrology, hepatology Use of parenteral controlled substances * Kiet Gardiner, PharmD - 10/06/2024 1:07 PM EDT Images from the original note were not included. [facility] Clinical Pharmacy Service: Vancomycin Monitoring Consult [...] AM #2 Blood culture-Peripheral site 2 Preliminary [id number] Peripheral 10/06/2024 1:04 AM #1 Blood culture-Peripheral site 1 Preliminary [id number] Peripheral --Vancomycin Concentrations-- Lab Results (Last 7 [...] US Retroperitoneal complete (Results Pending) US Duplex Npd-Kde-Xaibncp Comp (Results Pending) CT Head WO contrast [...] PM EDT Hospital Medicine Attending Supervision Note [facility] Julien Gilbert was seen 10/06/24 on [...] Lerner MD - 10/05/2024 2:42 PM EDT [facility] Department of Medicine TRANSFER CALL NOTE Location [facility] ED History of Present Illness Julien [...] nearest ED, with plan to transfer to [facility] if needing admission. In the ED, [...] Studies: Na 129 K 4.2 Cl 101 Bpqsnf97 BUN 62 (up from baseline) Cr 3.6 [...] Quan MD - 10/14/2024 1:10 PM EDT [facility] PRE-SEDATION ASSESSMENT, HISTORY & PHYSICAL Date: 10/14/2024 Jluien Gilbert is a 39 y.o. year old [...] Neuro: AOx3 AUC For Cath Indication(s) for Manager Pipeline Visit: Visit Indicators: Suspected CAD 2. Chest Pain Symptom Assessment: Asymptomatic 3. Heart Failure: Yes Class II 4. CHSA Clinical Frailty Scale: Mildly Frail Sedation Plan: Moderate Sedation with Local Anesthesia Antibiotic prophylaxis is not indicated. Mani Quan Interventional Medical Staff Physician Pager: [phone] [1] Patient Active Problem List Diagnosis Decompensated cirrhosis ([facility]) Acute kidney injury superimposed on CKD ([facility]) Alcohol use disorder Metabolic encephalopathy Hypertension Other hyperlipidemia Thrombocytopenia ([facility]) Renal mass, left Abdominal pain Hypokalemia CKD (chronic kidney disease) stage 4, GFR 15-29 ml/min ([facility]) Metabolic acidosis with normal anion [...] Peterson MD - 10/10/2024 10:05 AM EDT [facility] PRE-SEDATION ASSESSMENT, HISTORY & PHYSICAL Date: 10/10/2024 [...] Patient Active Problem List Diagnosis Decompensated cirrhosis ([facility]) Acute kidney injury superimposed on CKD ([facility]) Alcohol use disorder Metabolic encephalopathy Hypertension Other hyperlipidemia Thrombocytopenia ([facility]) Renal mass, left Abdominal pain Hypokalemia CKD (chronic kidney disease) stage 4, GFR 15-29 ml/min ([facility]) Metabolic acidosis with normal anion gap and bicarbonate losses GERD (gastroesophageal reflux disease) Hypothyroidism Itching Anemia BRBPR (bright red blood per rectum) SBP (spontaneous bacterial peritonitis) ([facility]) C Diff Diarrhea C. difficile diarrhea [...] of Systems: Review of systems performed. See MA ROS review. Vital Signs: BP Readings from [...] Low Risk (07/09/2024) Received from [facility] Overall Financial Resource Strain (CARDIA) Difficulty [...] Activity: Unknown (07/14/2024) Received from [facility] Exercise Vital Sign Days of Exercise per Week: Patient unable to answer Minutes of Exercise per Session: Not on file Stress: Patient Unable To Answer (07/14/2024) Received from [facility] - Occupational Stress Questionnaire Feeling of Stress : Patient unable to answer Social Connections: Patient Unable To Answer (07/14/2024) Received from [facility] Social Connection and Isolation Panel [NHANES] Frequency of Communication with Friends and Family: Patient unable to answer Frequency of Social Gatherings with Friends and Family: Patient unable to answer Attends [employer]: Patient unable to answer Active Member [...] values in this interval not displayed. Imaging: @[id number]@ I have personally reviewed the imaging and have noted the following: Large recanalized umbilical vein Perihilar varices Replaced right hepatic artery Splenomegaly Spontaneous splenorenal shunt Large volume ascites, No portal vein thrombosis Assessment/Plan: A 39 y.o. male with ETOH decompensated by ascites, hepatic encephalopathy,bleeding esophageal Varices. Use and allocation of SCD, PRODUCT LISTER, DCD and LDLT allografts discussed in detail. [...] from surgery (5%). I also explained the jail risks of transplantation and immunosuppression including viral infection and cancer both solid organand lymphoma. Kemar Sahni MD, Fellow, Multiorgan Abdominal Transplant Surgery. [facility]. 10/09/2024 3:16 PM [1] Allergies Allergen Reactions [...] Ortiz MD - 10/06/2024 12:00 AM EDT [facility] Internal Medicine - History and Physical [...] taken to Radiology overnight for imaging upload. [facility] performed a bedside paracentesis and sent studies for SBP analysis. Willcontact [facility] to see if labs have resulted. Review of Systems 14 pt ROS conducted and negative aside from that mentioned in above HPI Past Medical and Social History Lives in [place], [place] at bedside Notes that the patient [...] OSH Repeat labs pending on admission to [facility] Assessment & Plan Julien Gilbert is [...] AM EDT Hospital Medicine Attending Supervision Note [facility] Julien Gilbert was seen 10/06/24 on [...] lethargy. HE was seen at [facility] ED were CT head unremarkable and RUQ with gallstones, abdominal ascites diagnostic para done and started on empiric CTX. Labs remarkable at OSH for K 4.2 Cl 101 Fhxyel42 BUN 62 (up from baseline) Cr 3.6 [...] another specialty or practice, other licensed professional (PT/OT/ACOUSTICAL INSTALLER/RT), or a non-medical community professional: ed team [...] Medicine Department of Internal Medicine Pager ID: [phone] 6:04 AM, 10/06/2024 documented in this encounter [...] can be located in EPIC Procedures (or [facility] Imaging) Tabs. Please call with any questions. BAKARI WAHL CNP Vascular & Interventional Radiology 10/10/2024,1:55 PM [facility]: [phone] * Lino Soto MD - 10/10/2024 12:06 PM EDT EGD Brief Op Note Julien Justin 10/05/2024 - 10/10/2024 Pre-op Diagnosis: Alcoholic cirrhosis of liver with ascites (CMS-HCC) [K70.31] Post-op Diagnosis: Portal gastropathy, Medium size, non-bleeding esophageal varices Procedure(s): EGD Surgeon(s): Lino Soto MD Anesthesia: MAC (Monitor Anesthesia Care) Staff: Fellow: Gerri Peterson MD Endoscopy Nurse: Kandice Castaneda RN Branch Lead: Diana Kemp Estimated Blood Loss: Minimal Specimens: Drains: There were no complications unless listed below. LINO SOTO MD Date: 10/10/2024 Time: 12:18 PM * Lino Soto MD - 10/10/2024 11:48 AM EDT [id number] Procedure Date: 10/10/2024 11:48 AM Patient Name: Julien Gilbert Date of : 1985 Admit Type: Inpatient Age: 39 Gender: Male Note Status: Finalized Attending MD: Lino Soto MD, [id number] Procedure: Upper GI endoscopy Indications: Gastroesopahgeal variceal [...] verified by the physician, the nurse, the tourist cabin keeper and the emergency room technician in the pre-procedure area in the [...] to hypotension Procedure Code(s): --- Professional --- 75571, GC, Esophagogastroduodenoscopy, flexible, transoral; diagnostic, including collection of specimen(s) by brushing or washing, when performed (separate procedure) Diagnosis Code(s): --- Professional --- I85.00, Esophageal varices without bleeding K76.6, Portal hypertension K31.89, Other diseases of stomach and duodenum CPT copyright 2022 [employer]. All rights reserved. The codes documented in this report are preliminary and upon remote coders review may be revised to meet current [...] In: 12:10:16 PM Scope Out: 12:17:[address] [place] [address], Count includes the [facility] * Gill Le RN - 10/09/2024 [...] to follow at this time. 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 Describes significant anxiety that occasionally [...] need for sleep. Has not been on [facility] since stopping the cymbalta. [...] to his health decline. He was raised [place] and denied current engagement in any community [...] [phone] Resp: 16 16 18 Temp: 97.3 ??F (36.3 [...] or other abnormalities Cognition/Memory: short term and buttermaker memory intact. Attention and concentration: is not [...] from the original note were not included. [facility] General Cardiology Consult Note Referring Physician: [...] at baseline or with provocation, shows no slwrv-oe-pnyq atrial level shunt. - Pulmonary arteries: Systolic [...] 10/13/24, please keep NPO on 10/12/24 at [place] Risks and benefits of new therapies added and new invasive and non-invasive procedures/diagnostic testing planned discussed with and understood by the patient/family who agree with the above plan. Plan discussed with the attending physician Dr. Blanco. Recommendations are preliminary until this note is co- signed by the attending. Follow up appointments with Cardiology can be scheduled by calling [phone]. Thank you for the opportunity to participate in this patient's care. Please call orpage with any questions. Leonor Garcia MD Medical Staff Physician I have personally seen, examined, reviewed all [...] 0659 10/11/24 0700 - 10/12/24 0659 Shift 4088-8162 9970-9594 24 Hour Total 2813-3172 2731-1103 0385-5294 24 Hour Total INTAKE P.O. 8434 744 4105 P.O. 5333 096 8868 Boost (mL) - [facility] only 240 240 I.V.(mL/kg) 450(3.8) Volume [...] Other (See Comments) Became Manic * Bakari Wahl [facility] - 10/10/2024 10:07 AM EDT Interventional [...] CNP Vascular & Interventional Radiology 10/10/2024,1:54 PM [facility]: [phone]) [1] Social History Tobacco Use Smoking Status [...] EDTAssociated Order(s): IP CONSULT TO INFECTIOUS DISEASES [facility] DEPARTMENT OF INFECTIOUS DISEASE INITIAL NOTE Referring Physician: Fouzia Rene MD Consult Attending: Daria Garcia Patient: Julien Gilbert CSN: [id number] Reason for Consult: CC: Abx management History [...] HE. He was born and raised in [facility] . No travel to the [facility]. 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 [...] Low Risk (07/09/2024) Received from [facility] Overall Financial Resource Strain (CARDIA) Difficulty [...] Activity: Unknown (07/14/2024) Received from [facility] Exercise Vital Sign Days of Exercise per Week: Patient unable to answer Minutes of Exercise per Session: Not on file Stress: Patient Unable To Answer (07/14/2024) Received from [facility] [place] [facility] [employer] [facility] - Occupational Stress Questionnaire Feeling of Stress : Patient unable to answer Social Connections: Patient Unable To Answer (07/14/2024) Received from [facility] Social Connection and Isolation Panel [NHANES] Frequency of Communication with Friends and Family: Patient unable to answer Frequency of Social Gatherings with Friends and Family: Patient unable to answer Attends [employer] Services: Patient unable to answer Active Member [...] day. Qty: 60 tablet, Refills: 0 Comments: [facility] in [place] 82 sodium bicarbonate 650 MG tablet Take [...] Intake/Output Summary (Last 24 hours) at 10/08/2024 0971 Last data filed at 10/08/2024 0549 Gross [...] Laboratory Data Lab name 10/06/24 0737 10/07/24 0610/08/24 0536 10/08/24 0741 WBC 5.6 3.3* 3.2* 3.7* HEMOGLOBIN 9.0* 7.4* 6.9* 7.1* HEMATOCRIT 25.3* 21.5* 18.9* 20.0* MEAN CORPUSCULAR VOLUME 101.2* 104.1* 101.6* 103.1* PLATELETS 52* 35* 34* 37* Lab name 09/09/24 0612 09/16/24 1220 10/06/24 0401 10/06/24 0737 10/07/24 0610/08/24 0536 SODIUM 135 < > 129* 129* [...] Aphasia [R47.01] 10/06/2024 SBP (spontaneous bacterial peritonitis) ([facility]) [K65.2] 09/08/2024 Metabolic acidosis with normal anion gap and bicarbonate losses [E87.20] 09/03/2024 CKD (chronic kidney disease) stage 4, GFR 15-29 ml/min ([facility]) [N18.4] 09/03/2024 GERD (gastroesophageal reflux disease) [K21.9] 09/03/2024 Renal mass, left [N28.89] 08/18/2024 Thrombocytopenia ([facility]) [D69.6] Decompensated cirrhosis ([facility]) [K72.90, K74.60] 07/25/2024 NADIYA (acute kidney injury) ([facility]) [N17.9] 07/25/2024 Resolved Hospital Problems No [...] Signed: Daria Garcia MD 10/08/2024, 9:46 AM [phone] [1] Allergies Allergen Reactions Adhesive Itching and [...] Low Risk (07/09/2024) Received from [facility] Overall Financial Resource Strain (CARDIA) Difficulty [...] Activity: Unknown (07/14/2024) Received from [facility] Exercise Vital Sign Days of Exercise per Week: Patient unable to answer Minutes of Exercise per Session: Not on file Stress: Patient Unable To Answer (07/14/2024) Received from [facility] [employer] [facility] - Occupational Stress Questionnaire Feeling of Stress : Patient unable to answer Social Connections: Patient Unable To Answer (07/14/2024) Received from [facility] Social Connection and Isolation Panel [NHANES] Frequency of Communication with Friends and Family: Patient unable to answer Frequency of Social Gatherings with Friends and Family: Patient unable to answer Attends [employer] Services: Patient unable to answer Active Member [...] is no recent study available for direct mqab-hn-bhqs comparison. Left Ventricle The left ventricle is [...] 35 mmHgon resting echo from [facility] 07/15/24. No ischemic workup noted. ECG from [...] surgery with risk (OLT/OKT) Los Broussard MD, [facility] Department of Anesthesiology [1] Allergies Allergen Reactions Adhesive Itching and Rash Tegaderm adhesive on Ivs, pt states its tolerable Duloxetine Other (See Comments) Became Manic [2] Patient Active Problem List Diagnosis Decompensated cirrhosis ([facility]) NADIYA (acute kidney injury) ([facility]) Alcohol use disorder Metabolic encephalopathy Hypertension Other hyperlipidemia Thrombocytopenia ([facility]) Renal mass, left Abdominal pain Hypokalemia CKD (chronic kidney disease) stage 4, GFR 15-29 ml/min ([facility]) Metabolic acidosis with normal anion gap and bicarbonate losses GERD (gastroesophageal reflux disease) Hypothyroidism Itching Anemia BRBPR (bright red blood per rectum) SBP (spontaneous bacterial peritonitis) ([facility]) C Diff Diarrhea [...] MD PCP: Enedina Mcguire NP Home Pharmacy: [facility] [address] [place] [id number] [facility] [address] [facility] [address] Issues related to obtaining medications: Payor Information Medical Insurance Coverage: Payor: [facility] / Plan: [facility] / Product Type: *No Producttype* [...] Was any abuse reported by patient?: No [place] Status & Connection to [facility] Services [place] Status & Connection to [facility] Services Are you a ?: No Support Systems Emergency contact: Extended Emergency Contact Information Primary Emergency Contact: Abdiaziz Gilbert (next of kin) Mobile Relation: Spouse Secondary Emergency Contact: brwon gilbert Mobile Relation: Brother Support Systems Legal [...] lethargy. HE was seen at [facility] ED were CT head unremarkable and RUQ with gallstones, abdominal ascites diagnostic para done and started on empiric CTX. BSN RN Acting Teacher Neisha Fuentes met with patient at bedside [...] health concerns or diagnoses. He has used [facility] to aide with his [...] interest(s) are disclosed as appropriate. Kandy BAE [facility] * ANDREWS Oconnor - 10/07/2024 11:15 AM EDT Speech Language Pathology Speech, Language and Cognitive Initial Assessment Name: Julien Gilbert : 1985 Attending Physician: Fouzia Rene MD Admission Diagnosis: AMS Date: 10/07/2024 Reviewed Pertinent hospital course: Yes Hospital Course ACOUSTICAL INSTALLER: 39 y/o male with a past medical [...] 2. No intracranial mass effect or hemorrhage. ACOUSTICAL INSTALLER Hx: 08/15/24: BSE with recs for regular [...] if new needs arise. No further acute ACOUSTICAL INSTALLER services are warranted for speech, language, or cognition at this time. Plan/Recommendation: - Discharge from ACOUSTICAL INSTALLER - no acute needs at this time - ACOUSTICAL INSTALLER at discharge is not recommended Problem List [...] Primary Mode of Expression: Verbal Primary Language: Kyrgyz Confrontation Naming: Within Functional Limits Word Level [...] Patient educated on: Family educated on;role of ACOUSTICAL INSTALLER, current POC, and discharge recommendations forSLP therapy Patient response: Patient verbalized understanding;Family demonstrated understanding End of Session: Patient was left in bed with call light within reach and all needs met. Gladys Banda M.A, CCC-ACOUSTICAL INSTALLER Speech Language Pathologist--Rehab Services [facility] MBSImP Certified Clinician Time Start Time: 1055 Stop Time: 1109 Time Calculation (min): 14 min Charges $Eval Speech Sound Prd w/Lng Comp & Expr: 1 Procedure Patient Class Inpatient [1] Patient Active Problem List Diagnosis Decompensated cirrhosis ([facility]) NADIYA (acute kidney injury) ([facility]) Alcohol use disorder Metabolic encephalopathy Hypertension Other hyperlipidemia Thrombocytopenia ([facility]) Renal mass, left Abdominal pain Hypokalemia CKD (chronic kidney disease) stage 4, GFR 15-29 ml/min ([facility]) Metabolic acidosis with [...] NAGMA related to diarrhea No Indication for MANAGER STRATEGIC Liver transplant workup per GI/ Primary team Thank you for allowing us to participate in this patient's care. Discussed with Consult Staff. Ignacio Queen MD Renal Fellow Pager # [phone] Chief Complaint No chief complaint on file. [...] concern for hepatorenal syndrome.` Patient came from [facility], paracentesis was performed yesterday [...] PLT 58* 53* 52* Recent Labs 10/06/2410310/06/24 0401 10/06/24 0737 NA 127* 129* 129* [...] TIBC , FERRITIN No results found for: [id number] , FOLATE Lab Results Component Value Date [...] CRUR No results found for: MICROALBUR , [id number] In addition to the above an extensive [...] exam and history taking. DOS 10/06/2024 Julien Gilbetr is a 39 y.o. male with has [...] 5.3 (H) 10/06/2024 No results found for: [id number] PLAN Patient seen labs reviewed Unclear baseline serum creat Recent episode of acute kidney injury requiring hospitalization Now has oheb-[id number] episode of NADIYA Underwent paracentesis 3 days [...] team Colten Huertas MD, KISHOR LIN FNKF it support technician Div. of Nephrology [facility] E-mail: [email or web address] * Jerad Hughes MD - 10/06/2024 9:28 AM EDTAssociated Order(s): IP CONSULT TO LIVER [facility] HEPATOLOGY CONSULT NOTE Name: Julien Gilbert CSN: [id number] Consulted by: Angie Blanchard MD Reason for Consult: Decompensated Cirrhosis History of Present Illness: Julien Gilbert is a 39 y.o. with history of decompensated EtOH cirrhosis (complicated by EV, HRS, ascites, HE), HTN, and CKD. Patient admitted as transfer from [facility] ED with confusion and lethargy. Diagnostic [...] to diarrhea. Patient was recently referred to [facility] for liver transplant evaluation. Patient was evaluated by transplant social scientist on 09/25/2024 and it was determined that [...] OSH. Hepatology team to follow tomorrow. Natalia Roasles MD Professor Division of Digestive Diseases documented in this encounter Nursing Notes * Zuleima Cheney RN - 10/17/2024 10:13 AM EDT Patients discharged home with medications from the discharge pharmacy. Discharge instructions givenalong with his AVS and patient verbalize understanding. Transported via wheelchair to the [facility] to bepicked up for a lyft. * Dylan Dong RN - 10/14/2024 2:20 PM EDT Pt returned from catheter finisher and inspector status post [facility]. Bedside report received from catheter finisher and inspector, RN. Pt placed on telemetry, serial vital signs set up. Access site: RRA. Site is soft, no bleeding/hematoma, [address] Sheath removed in catheter finisher and inspector at 1402, TR band placed to site [...] EDT Pt arrived with and admitted into [facility] from [facility] with AMS. Merlene paged to the [...] Patient will remain free of falls Goal: [place] Precautions Outcome: Progressing Problem: Daily Care Goal: Daily care needs are met Description: Assess and monitor ability to perform self care and identify potential discharge needs. Outcome: Progressing * Care Coordination - Kandy Fuentes - 10/16/2024 11:33 AM EDT [facility] Case Management/Social Work Department Progress Note Patient Information Patient Name: Julien Gilbert Hospital day: 11 Inpatient/Observation: Inpatient Level of Care: blue Admit date: 10/05/2024 Admission diagnosis: AMS PMH: has a past medical history of Alcoholic cirrhosis of liver (CMS-HCC), Esophageal varices ([facility]), Hepatorenal syndrome ([facility]), Hypertension, Other hyperlipidemia (07/26/2024), Renal cell carcinoma ([facility]), Thrombocytopenia ([facility]), and Thyroid disease. PCP: Enedina Mcguire NP Home Pharmacy: [facility] [address] [facility] [address] [address] [facility] [address] [facility] [id number] Medical Insurance Coverage: Payor: [facility] / Plan: [facility] / Product Type: *No Producttype* / Other Pertinent Information RN/CM received update from team and completed chart review. Pt is not medically ready for discharge. Nephrology to see today. Here for pre-transplant work up. Discharge Plan Anticipated discharge plan: home Anticipated discharge date: 10/17/24 CM/SW will continue to follow and remain available for discharge planning needs. Kandy BAE [facility] * Plan of Care - Anu Wolff [...] Patient will remain free of falls Goal: [place] Precautions Outcome: Progressing Problem: Daily Care [...] Patient will remain free of falls Goal: [place] Precautions Outcome: Progressing Problem: Daily Care [...] Kandy Fuentes - 10/15/2024 2:26 PM EDT [facility] Case Management/Social Work Department Progress Note Patient Information Patient Name: Julien Gilbert Hospital day: 10 Inpatient/Observation: Inpatient Level of Care: kinsey Admit date: 10/05/2024 Admission diagnosis: AMS PMH: has a past medical history of Alcoholic cirrhosis of liver (CMS-HCC), Esophageal varices ([facility]), Hepatorenal syndrome ([facility]), Hypertension, Other hyperlipidemia (07/26/2024), Renal cell carcinoma ([facility]), Thrombocytopenia ([facility]), and Thyroid disease. PCP: Enedina Mcguire NP Home Pharmacy: [facility] [address] [place] [address] [place] [address] [facility] [address] [facility] [id number] Medical Insurance Coverage: Payor: [facility] / Plan: [facility] / Product Type: *No Producttype* [...] Patient will remain free of falls Goal: [place] Precautions Outcome: Progressing Problem: Daily Care [...] Kandy Fuentes - 10/14/2024 11:10 AM EDT [facility] Case Management/Social Work Department Progress Note [...] disease. PCP: Enedina Mcguire NP Home Pharmacy: [facility] [address] [place], [place] - [address] [address] [facility] [address] [facility] [id number] Medical Insurance Coverage: Payor: [facility] / Plan: [facility] / Product Type: *No Producttype* [...] Kandy Fuentes - 10/13/2024 11:53 AM EDT [facility] Case Management/Social Work Department Progress Note [...] disease. PCP: Enedina Mcguire NP Home Pharmacy: [facility] [address] [place] [address], [facility] [address] [place] [id number] [address] [facility] [address] [facility] [id number] Medical Insurance Coverage: Payor: [employer] / Plan: [facility] / Product Type: *No Producttype* [...] BAE RNCM * Plan of Care - Gerda Guerra [...] Kandy Fuentes - 10/10/2024 12:00 PM EDT Health Case Management/Social Work Department [...] disease. PCP: Enedina Mcguire NP Home Pharmacy: [facility] [address] [place] [address] [place] [address] [facility] [address] [facility] [id number] Medical Insurance Coverage: Payor: [facility] / Plan: [facility] / Product Type: *No Producttype* [...] available for discharge planning needs. Kandy BAE [facility] * Plan of Care - Jodi [...] Patient will remain free of falls Goal: [place] Precautions Outcome: Progressing Problem: Daily Care [...] Patient will remain free of falls Goal: [place] Precautions Outcome: Progressing Problem: Daily Care [...] disease. PCP: Enedina Mcguire NP Home Pharmacy: [facility] [address] [place] [address] [place] [address] [facility] [address] [facility] [id number] Medical Insurance Coverage: Payor: [employer] / Plan: [facility] / Product Type: *No Producttype* [...] Kandy Fuentes - 10/08/2024 3:41 PM EDT Health Case Management/Social Work Department [...] disease. PCP: Enedina Mcguire NP Home Pharmacy: [facility] [address] [place], [place] - [address] [address] [facility] [address] [facility] [address] Medical Insurance Coverage: Payor: [employer] / Plan: [facility] / Product Type: *No Producttype* / Other Pertinent Information RN/CM received update from team and completed chart review. Pt is not medically ready for discharge. Patient needing blood transfusion today. CT scan today. Patient going through pre-transplant evaluation. Discharge Plan Anticipated discharge plan: home Anticipated discharge date: 10/10/24 CM/SW will continue to follow and remain available for discharge planning needs. Kandy Fuentes BSN RN * Care Coordination - Kandy Fuentes - 10/07/2024 3:22 PM EDT [facility] Case Management/Social Work Department Progress Note [...] disease. PCP: Enedina Mcguire NP Home Pharmacy: [facility] [address] [place], [place] [address] [place] [address] [facility] [address] [facility] [id number] Medical Insurance Coverage: Payor: [facility] / Plan: [facility] / Product Type: *No Producttype* [...] Patient will remain free of falls Goal: [place] Precautions Outcome: Progressing Problem: Daily Care [...] Description 12/05/2024 8:01 AM EDT Hospital Encounter [facility] ENDOSCOPY [address] [place] [id number] Chris Orosco MD [address] [place] [phone] 12/05/2024 8:01 AM EDT - 12/05/2024 8:31 AM EDT Surgery [facility] ENDOSCOPY [address] [place] [id number] Chris Orosco MD [address] [place] [phone] EGD Scheduled Procedures Name Priority Associated Diagnoses Date/Ti me EGD Cirrhosis of liver with ascites, unspecified hepatic cirrhosis type ([facility]) 12/05/2024 8:01 AM EDT documented as [...] IGG ANTIBODY Routine 10/07/2024 6:37 PM EDT [id number] (AAT) QUANTITATION & MUTATION Routine 10/07/2024 6:37 [...] Routine 10/07/2024 6:19 PM EDT US DUPLEX [id number] COMPLETE Routine 10/07/2024 3:48 PM EDT US [...] 10/06/2024 4:01 AM EDT UPPER RESPIRATORY VIRAL/BACTERIAL PANEL-RELATIONS MGR ONLY Routine 10/06/2024 3:12 AM EDT XR [...] - 146 mmol/L 10/17/2024 7:02 AM EDT [facility] Potassium 3.4(L) 3.5 - 5.3 mmol/L 10/17/2024 7:02 AM EDT [facility] Chloride 104 98 - 110 mmol/L 10/17/2024 7:02 AM EDT [facility] CO2 18(L) 21 - 33 mmol/L 10/17/2024 7:02 AM EDT [facility] Anion Gap 11 3 - 16 mmol/L 10/17/2024 7:02 AM EDT [facility] BUN 54(H) 7 - 25 mg/dL 10/17/2024 7:02 AM EDT [facility] Creatinine 2.88(H) 0.60 - 1.30 mg/dL 10/17/2024 7:02 AM EDT [facility] Glucose 127(H) 70 - 100 mg/dL 10/17/2024 7:02 AM EDT [facility] Calcium 8.2(L) 8.6 - 10.3 mg/dL 10/17/2024 7:02 AM EDT [facility] Phosphorus 4.5 2.1 - 4.7 mg/dL 10/17/2024 7:02 AM EDT [facility] Albumin 3.1(L) 3.5 - 5.7 g/dL 10/17/2024 7:02 AM EDT [facility] Osmolality, Calculated 292 278 - 305 mOsm/kg 10/17/2024 7:02 AM EDT [facility] EGFR 27 10/17/2024 7:02 AM EDT [facility] Comment:As of 2021, the estimated GFR is calculated using the 2020 Chronic Kidney Disease Epidemiology Collaboration (CKD-EPI) equation. In line with the NKF-ASN Task Force Recommendations, this equation does not include a coefficient for race. A single eGFR value is calculated for each patient. The reference interval is >60 mL/min/1.73m2. eGFR values greater than 90 will be reported as >90mL/min/1.73m2. Reference: Luis Edurado C, Talia M, Olivia DC, Emerita ND, Madelyn [place], Felicia [place], et al. A Unifying Approach for GFR Estimation: Recommendations of the NKF-ASN Task Force on Reassessing the inclusion of Race in Diagnosing Kidney Disease. Am J Kidney Dis. 2020. Plasma 10/17/2024 5:48 AM EDT 10/17/2024 6:32 AM EDT us Eileen Schroeder MD, PhD LAB BLOOD ORDERABLES Final Result [facility] [address] [place] [address], [facility] * (ABNORMAL) Protime-INR (10/16/2024 6:31 AM EDT) Protime 22.5(H) 12.1 - 15.1 seconds 10/16/2024 8:04 AM EDT [facility] INR 1.9(H) 0.9 - 1.1 10/16/2024 8:04 AM EDT [facility] Comment: RECOMMENDED THERAPEUTIC RANGES USING INR : Stable oral anticoagulant therapy: 2.0 - 3.0 Mechanical prosthetic heart valve: 2.5 - 3.5 Recurrent acute myocardial infarction: 2.5 - 3.5 Plasma 10/16/2024 6:31 AM EDT 10/16/2024 6:56 AM EDT Eileen Schroeder MD, PhD LAB BLOOD ORDERABLES Final Result Performing Organization Address City/State/[facility] Co de Phone Number [facility] [address] [place] [address], [facility] * (ABNORMAL) Hepatic Function Panel (10/16/2024 6:31 AM EDT) Total Bilirubin 7.6(H) 0.0 - 1.5 mg/dL 10/16/2024 7:24 AM EDT [facility] Bilirubin, Direct 3.97(H) 0.00 - 0.40 mg/dL 10/16/2024 7:24 AM EDT [facility] AST 45(H) 13 - 39 U/L 10/16/2024 7:24 AM EDT [facility] ALT 23 7 - 52 U/L 10/16/2024 7:24 AM EDT [facility] Alkaline Phosphatase 137(H) 36 - 125 U/L 10/16/2024 7:24 AM EDT [facility] Total Protein 5.1(L) 6.4 - 8.9 g/dL 10/16/2024 7:24 AM EDT [facility] Albumin 3.4(L) 3.5 - 5.7 g/dL 10/16/2024 7:24 AM EDT [facility] Bilirubin, Indirect 3.63(H) 0.00 - 1.10 mg/dL 10/16/2024 7:24 AM EDT [facility] Plasma 10/16/2024 6:31 AM EDT 10/16/2024 6:56 AM EDT Eileen Schroeder MD, PhD LAB BLOOD ORDERABLES Final Result [facility] [address] * Magnesium (10/16/2024 6:31 AM EDT) Magnesium 2.1 1.5 - 2.5 mg/dL 10/16/2024 7:24 AM EDT [facility] Plasma 10/16/2024 6:31 AM EDT 10/16/2024 6:56 AM EDT us Eileen Schroeder MD, PhD LAB BLOOD ORDERABLES Final Result [facility] [address] [place] [place] [address] * (ABNORMAL) Renal Function Panel w/EGFR (10/16/2024 6:31 AM EDT) Sodium 135 133 - 146 mmol/L 10/16/2024 7:24 AM EDT [facility] Potassium 3.7 3.5 - 5.3 mmol/L 10/16/2024 7:24 AM EDT [facility] Chloride 106 98 - 110 mmol/L 10/16/2024 7:24 AM EDT [facility] CO2 16(L) 21 - 33 mmol/L 10/16/2024 7:24 AM EDT [facility] Anion Gap 13 3 - 16 mmol/L 10/16/2024 7:24 AM EDT [facility] BUN 55(H) 7 - 25 mg/dL 10/16/2024 7:24 AM EDT [facility] Creatinine 3.20(H) 0.60 - 1.30 mg/dL 10/16/2024 7:24 AM EDT [facility] Glucose 121(H) 70 - 100 mg/dL 10/16/2024 7:24 AM EDT [facility] Calcium 8.5(L) 8.6 - 10.3 mg/dL 10/16/2024 7:24 AM EDT [facility] Phosphorus 4.2 2.1 - 4.7 mg/dL 10/16/2024 7:24 AM EDT [facility] Albumin 3.4(L) 3.5 - 5.7 g/dL 10/16/2024 7:24 AM EDT [facility] Osmolality, Calculated 296 278 - 305 mOsm/kg 10/16/2024 7:24 AM EDT [facility] EGFR 24 10/16/2024 7:24 AM EDT [facility] Comment:As of 2021, the estimated GFR [...] MD, PhD LAB BLOOD ORDERABLES Final Result [facility] [address] [place] [address], [facility] * (ABNORMAL) CBC (10/16/2024 6:31 AM EDT) WBC 5.8 3.8 - 10.8 10E3/uL 10/16/2024 8:00 AM EDT [facility] RBC 2.16(L) 4.20 - 5.80 10E6/uL 10/16/2024 8:00 AM EDT [facility] Hemoglobin 7.7(L) 13.2 - 17.1 g/dL 10/16/2024 8:00 AM EDT [facility] Hematocrit 22.1(L) 38.5 - 50.0 % 10/16/2024 8:00 AM EDT [facility] MCV 102.3(H) 80.0 - 100.0 fL 10/16/2024 8:00 AM EDT [facility] MCH 35.7(H) 27.0 - 33.0 pg 10/16/2024 8:00 AM EDT [facility] MCHC 34.9 32.0 - 36.0 g/dL 10/16/2024 8:00 AM EDT [facility] RDW 17.7(H) 11.0 - 15.0 % 10/16/2024 8:00 AM EDT [facility] Platelets 43(L) 140 - 400 10E3/uL 10/16/2024 8:00 AM EDT [facility] Comment: Specimen checked for clots. None detected. Slide Reviewed for PLT Clumps. None Seen. Platelet Estimate Decreased 10/16/2024 8:00 AM EDT [facility] MPV 8.6 7.5 - 11.5 fL 10/16/2024 8:00 AM EDT [facility] Whole Blood 10/16/2024 6:31 AM EDT 10/16/2024 6:57 AM EDT Narrative [facility] - 10/16/2024 8:00 AM EDT Peripheral blood smear was scanned per review criteria approved by the laboratory director medical. us Eileen Schroeder MD, PhD LAB BLOOD ORDERABLES Final Result [facility] [address] [place] [address], [facility] * CARISA Rhythm Strip - Scan (10/15/2024 8:02 PM EDT) us Scanning [place] SCAN DOCS - NO RESULTS Final Res ult * CARISA Rhythm Strip - Scan (10/15/2024 8:02 PM EDT) us Scanning [place] SCAN DOCS - NO RESULTS Final Res ult * Prepare Platelets, leukoreduced, 1 Units (10/15/2024 6:16 AM EDT) [facility] Product Code Y8263H71 HC[facility] Unit Number [id number] HCLL Dispense Status Presumed Transfused_PT HCLL Blood Expiration Date [id number] HCLL Coding System [id number] HCLL Blood Bank Product Eleazar Nguyễn MD BLOOD BANK PRODUCT ORDE RABJOSE R Final Result [facility] * Prepare Fresh Frozen Plasma, 1 Units (10/15/2024 6:15 AM EDT) Product Code F8911F54 [facility]LL Unit Number [id number] HCLL Dispense Status Presumed Transfused_PT HCLL Blood Expiration Date HCLL Coding System [id number] HCLL Blood Bank Product Eleazar Nguyễn MD BLOOD BANK PRODUCT ORDE RABJOSE R Final Result Performing Organization Address City/[facility]/ZIP Co de Phone Number HCLL * [...] BLOOD ORDERABLES Final Result Performing Organization Address City/[facility]/ZIP Co de Phone Number [facility] [address] * (ABNORMAL) Hepatic Function Panel (10/15/2024 6:08 AM EDT) Total Bilirubin 7.1(H) 0.0 - 1.5 mg/dL 10/15/2024 6:45 AM EDT [facility] Bilirubin, Direct 3.77(H) 0.00 - 0.40 mg/dL 10/15/2024 6:45 AM EDT [facility] AST 39 13 - 39 U/L 10/15/2024 6:45 AM EDT [facility] ALT 22 7 - 52 U/L 10/15/2024 6:45 AM EDT [facility] Alkaline Phosphatase 115 36 - 125 U/L 10/15/2024 6:45 AM EDT [facility] Total Protein 4.8(L) 6.4 - 8.9 g/dL 10/15/2024 6:45 AM EDT [facility] Albumin 3.2(L) 3.5 - 5.7 g/dL 10/15/2024 6:45 AM EDT [facility] Bilirubin, Indirect 3.33(H) 0.00 - 1.10 mg/dL 10/15/2024 6:45 AM EDT [facility] Plasma 10/15/2024 6:08 AM EDT 10/15/2024 6:17 AM EDT Eileen Schroeder MD, PhD LAB BLOOD ORDERABLES Final Result Performing Organization Address [facility] Co de Phone Number [facility] [address] * Magnesium (10/15/2024 6:08 AM EDT) Magnesium 1.8 1.5 - 2.5 mg/dL 10/15/2024 6:45 AM EDT [facility] Plasma 10/15/2024 6:08 AM EDT 10/15/2024 6:17 AM EDT Eileen Schroeder MD, PhD LAB BLOOD ORDERABLES Final Result Performing Organization Address City/[facility]/ZIP Co de Phone Number [facility] [address] [place] [address], [place] * (ABNORMAL) Renal Function Panel w/EGFR (10/15/2024 6:08 AM EDT) Sodium 135 133 - 146 mmol/L 10/15/2024 6:45 AM EDT [facility] Potassium 3.4(L) 3.5 - 5.3 mmol/L 10/15/2024 6:45 AM EDT [facility] Chloride 107 98 - 110 mmol/L 10/15/2024 6:45 AM EDT [facility] CO2 17(L) 21 - 33 mmol/L 10/15/2024 6:45 AM EDT [facility] Anion Gap 11 3 - 16 mmol/L 10/15/2024 6:45 AM EDT [facility] BUN 55(H) 7 - 25 mg/dL 10/15/2024 6:45 AM EDT [facility] Creatinine 2.88(H) 0.60 - 1.30 mg/dL 10/15/2024 6:45 AM EDT [facility] Glucose 125(H) 70 - 100 mg/dL 10/15/2024 6:45 AM EDT [facility] Calcium 8.4(L) 8.6 - 10.3 mg/dL 10/15/2024 6:45 AM EDT [facility] Phosphorus 3.9 2.1 - 4.7 mg/dL 10/15/2024 6:45 AM EDT [facility] Albumin 3.2(L) 3.5 - 5.7 g/dL 10/15/2024 6:45 AM EDT [facility] Osmolality, Calculated 297 278 - 305 mOsm/kg 10/15/2024 6:45 AM EDT [facility] EGFR 27 10/15/2024 6:45 AM EDT [facility] Comment:As of 2021, the estimated GFR [...] MD, PhD LAB BLOOD ORDERABLES Final Result [facility] [address] [place] [address], [facility] * (ABNORMAL) CBC (10/15/2024 6:08 AM EDT) WBC 4.6 3.8 - 10.8 10E3/uL 10/15/2024 6:51 AM EDT [facility] RBC 1.94(L) 4.20 - 5.80 10E6/uL 10/15/2024 6:51 AM EDT [facility] Hemoglobin 7.1(L) 13.2 - 17.1 g/dL 10/15/2024 6:51 AM EDT [facility] Hematocrit 19.6(L) 38.5 - 50.0 % 10/15/2024 6:51 AM EDT [facility] MCV 100.8(H) 80.0 - 100.0 fL 10/15/2024 6:51 AM EDT [facility] MCH 36.7(H) 27.0 - 33.0 pg 10/15/2024 6:51 AM EDT [facility] MCHC 36.4(H) 32.0 - 36.0 g/dL 10/15/2024 6:51 AM EDT [facility] RDW 17.3(H) 11.0 - 15.0 % 10/15/2024 6:51 AM EDT [facility] Platelets 34(L) 140 - 400 10E3/uL 10/15/2024 6:51 AM EDT [facility] Comment:Specimen checked for clots. None detected. MPV 8.7 7.5 - 11.5 fL 10/15/2024 6:51 AM EDT [facility] Whole Blood 10/15/2024 6:08 AM EDT 10/15/2024 6:17 AM EDT us Eileen Schroeder MD, PhD LAB BLOOD ORDERABLES Final Result Performing Organization Address [facility] de Phone Number [facility] [address] [place] [address] * PRA-HLA Ab Screen (Cytotoxic) (10/15/2024 6:08 AM EDT) [facility] The request and specimen(s) for this test have been received and transported to the [facility] at [address] [place] [address]. The [facility] will report results directly to the client. 10/15/2024 6:42 AM EDT [facility] Comment:The request and spec imen(s) for this test have been received and transported to the [facility] at [address] [place] [address]. The [facility] will report results directly to the client. Serum 10/15/2024 6:08 AM EDT 10/15/2024 6:42 AM EDT us Cosmo Pacheco MD LAB BLOOD ORDERABLES Final Resul t Performing Organization Address [facility] de Phone Number [facility] [address] [place] [address] * LEFT HEART CATH (10/14/2024 2:09 PM EDT) 10/14/2024 11:4 7 AM EDT Narrative [facility] - 10/14/2024 9:27 PM EDT *[facility]* Cardiac [employer] [address] [place] [address] CATHETERIZATION LAB STUDY Patient: Julien Gilbert Age: [...] manner. 3. Right radial artery access. A [id number] Glidesheath - Slender - .021 sheath was [...] + + !LV pressure s/d, ed !112, dP/nw=1038ub Hg/s! + + + !Aortic pressure s/d (m)!106/58 (75) ! + + + ATTESTATION: Dr. Matta was present for the entire procedure. Dr. Jay Quan was the initial author of this report. Prepared and electronically signed by Irving Matta MD [id number]:50 Procedure Note Irving Matta MD - 10/14/2024 *[facility]* [facility] [employer] [address] [place] [address] CATHETERIZATION LAB STUDY Patient: Julien Gilbert Age: [...] manner. 3. Right radial artery access. A [id number] Glidesheath - Slender - .021sheath was advanced [...] complications. Contrast: Omnipaque 350 25ml (total dose). [id number] 125ml (wasted). Radiation: Fluoroscopy time: 15min. Total [...] + !LV pressure s/d, ed !, 22, dP/ts=2862bl Hg/s! + + + !Aortic pressure s/d (m)!106/58 (75) ! + + + ATTESTATION: Dr. Matta was present for the entire procedure. Dr. Jay Quan wasthe initial author of this report. Prepared and electronically signed by Irving Matta MD [id number]:27:50 [place] [id number] Final Result [facility] * Transfuse Fresh Frozen Plasma Transfusion Rate: Per dept routine (10/14/2024 2:08 PM EDT) us Eleazar Nguyễn MD NURSING TREATMENT ORDER PAL - BLOOD ADMIN Final Result EXTERNAL * Transfuse Fresh Frozen Plasma Transfusion Rate: Per dept routine, 1 Units (10/14/2024 2:08 PM EDT) us Eleazar Nguyễn MD NURSING TREATMENT ORDER PAL - BLOOD ADMIN Final Result Performing Organization Address City/[facility]/ZIP Co de Phone Number EXTERNAL * Transfuse Platelets Transfusion Rate: Per dept routine (10/14/2024 12:43 PM EDT) us Eleazar Nguyễn MD NURSING TREATMENT ORDER PAL - BLOOD ADMIN Final Result Performing Organization Address City/[facility]/ZIP Co de Phone Number EXTERNAL * Transfuse Platelets Transfusion Rate: Per dept routine, 1 Units (10/14/2024 12:43 PM EDT) us Eleazar Nguyễn MD NURSING TREATMENT ORDER PAL - BLOOD ADMIN Final Result Performing Organization Address City/[facility]/ZIP Co de Phone Number EXTERNAL * Antibody Screen (10/14/2024 8:21 AM EDT) [facility] Antibody Screen Negative 10/14/2024 9:11 AM EDT [facility] Blood 10/14/2024 8:21 AM EDT 10/14/2024 8:33 AM EDT Narrative [facility] - 10/14/2024 9:26 AM EDT Testing performed by [facility] Transfusion Service us Eleazar Nguyễn MD BLOOD BANK TEST ORDERAB LES Final Result [facility] [address] [place] [address], [facility] * ABO/Rh (10/14/2024 8:21 AM EDT) ABO Grouping O 10/14/2024 8:55 AM EDT [facility] Rh Type Positive 10/14/2024 8:55 AM EDT [facility] Blood 10/14/2024 8:21 AM EDT 10/14/2024 8:33 AM EDT us Eleazar Nguyễn MD BLOOD BANK TEST ORDERAB LES Final Result Performing Organization Address [facility] Co de Phone Number [facility] [address] [place] [place] [address] * (ABNORMAL) Protime-INR (10/14/2024 2:53 AM EDT) Protime 23.8(H) 12.1 - 15.1 seconds 10/14/2024 4:34 AM EDT [facility] INR 2.1(H) 0.9 - 1.1 10/14/2024 4:34 AM EDT [facility] Comment: RECOMMENDED THERAPEUTIC RANGES USING INR : Stable oral anticoagulant therapy: 2.0 - 3.0 Mechanical prosthetic heart valve: 2.5 - 3.5 Recurrent acute myocardial infarction: 2.5 - 3.5 Plasma 10/14/2024 2:53 AM EDT 10/14/2024 4:16 AM EDT us Eileen Schroeder MD, PhD LAB BLOOD ORDERABLES Final Result Performing Organization Address [facility] Co de Phone Number [facility] [address] [facility] * (ABNORMAL) Hepatic Function Panel (10/14/2024 2:53 AM EDT) Total Bilirubin 7.2(H) 0.0 - 1.5 mg/dL 10/14/2024 4:45 AM EDT [facility] Bilirubin, Direct 3.86(H) 0.00 - 0.40 mg/dL 10/14/2024 4:45 AM EDT [facility] AST 41(H) 13 - 39 U/L 10/14/2024 4:45 AM EDT [facility] ALT 22 7 - 52 U/L 10/14/2024 4:45 AM EDT [facility] Alkaline Phosphatase 119 36 - 125 U/L 10/14/2024 4:45 AM EDT [facility] Total Protein 4.6(L) 6.4 - 8.9 g/dL 10/14/2024 4:45 AM EDT [facility] Albumin 3.3(L) 3.5 - 5.7 g/dL 10/14/2024 4:45 AM EDT [facility] Bilirubin, Indirect 3.34(H) 0.00 - 1.10 mg/dL 10/14/2024 4:45 AM EDT [facility] Plasma 10/14/2024 2:53 AM EDT 10/14/2024 4:16 AM EDT Eileen Schroeder MD, PhD LAB BLOOD ORDERABLES Final Result [facility] [address] * Magnesium (10/14/2024 2:53 AM EDT) Magnesium 1.9 1.5 - 2.5 mg/dL 10/14/2024 4:45 AM EDT [facility] Plasma 10/14/2024 2:53 AM EDT 10/14/2024 4:16 AM EDT Eileen Schroeder MD, PhD LAB BLOOD ORDERABLES Final Result [facility] [address] * (ABNORMAL) Renal Function Panel w/EGFR (10/14/2024 2:53 AM EDT) Sodium 136 133 - 146 mmol/L 10/14/2024 4:45 AM EDT [facility] Potassium 3.5 3.5 - 5.3 mmol/L 10/14/2024 4:45 AM EDT [facility] Chloride 107 98 - 110 mmol/L 10/14/2024 4:45 AM EDT [facility] CO2 16(L) 21 - 33 mmol/L 10/14/2024 4:45 AM EDT [facility] Anion Gap 13 3 - 16 mmol/L 10/14/2024 4:45 AM EDT [facility] BUN 55(H) 7 - 25 mg/dL 10/14/2024 4:45 AM EDT [facility] Creatinine 3.01(H) 0.60 - 1.30 mg/dL 10/14/2024 4:45 AM EDT [facility] Glucose 95 70 - 100 mg/dL 10/14/2024 4:45 AM EDT [facility] Calcium 8.5(L) 8.6 - 10.3 mg/dL 10/14/2024 4:45 AM EDT [facility] Phosphorus 4.4 2.1 - 4.7 mg/dL 10/14/2024 4:45 AM EDT [facility] Albumin 3.3(L) 3.5 - 5.7 g/dL 10/14/2024 4:45 AM EDT [facility] Osmolality, Calculated 297 278 - 305 mOsm/kg 10/14/2024 4:45 AM EDT [facility] EGFR 26 10/14[facility]24 [facility]:As of 2021, the estimated GFR [...] MD, PhD LAB BLOOD ORDERABLES Final Result [facility] [address] [place] [address], [facility] * (ABNORMAL) CBC (10/14/2024 2:53 AM EDT) WBC 5.5 3.8 - 10.8 10E3/uL 10/14/2024 5:00 AM EDT [facility] RBC 2.09(L) 4.20 - 5.80 10E6/uL 10/14/2024 5:00 AM EDT [facility] Hemoglobin 7.6(L) 13.2 - 17.1 g/dL 10/14/2024 5:00 AM EDT [facility] Hematocrit 21.3(L) 38.5 - 50.0 % 10/14/2024 5:00 AM EDT [facility] MCV 101.7(H) 80.0 - 100.0 fL 10/14/2024 5:00 AM EDT [facility] MCH 36.3(H) 27.0 - 33.0 pg 10/14/2024 5:00 AM EDT [facility] MCHC 35.7 32.0 - 36.0 g/dL 10/14/2024 5:00 AM EDT [facility] RDW 17.6(H) 11.0 - 15.0 % 10/14/2024 5:00 AM EDT [facility] Platelets 35(L) 140 - 400 10E3/uL 10/14/2024 5:00 AM EDT [facility] Comment: Specimen checked for clots. None detected. Slide Reviewed for PLT Clumps. None Seen. MPV 8.5 7.5 - 11.5 fL 10/14/2024 5:00 AM EDT [facility] Whole Blood 10/14/2024 2:53 AM EDT 10/14/2024 4:17 AM EDT us Eileen Schroeder MD, PhD LAB BLOOD ORDERABLES Final Result [facility] [address] [address], [facility] * Cardiac Cath Documents Scan (10/14/2024 [...] mL of GADOBUTROL 1 MMOL/ML INTRAVENOUS SYRINGE ([facility]) administered intravenously COMPARISON: CT 09/03/2024. Ultrasound [...] mL of GADOBUTROL 1 MMOL/ML INTRAVENOUS SYRINGE ([facility])administered intravenously COMPARISON: CT 09/03/2024. Ultrasound 10/07/2024. [...] 0.9 - 1.1 10/13/2024 6:12 AM EDT [facility] Comment: RECOMMENDED THERAPEUTIC RANGES USING INR : Stable oral anticoagulant therapy: 2.0 - 3.0 Mechanical prosthetic heart valve: 2.5 - 3.5 Recurrent acute myocardial infarction: 2.5 - 3.5 Plasma 10/13/2024 5:35 AM EDT 10/13/2024 5:52 AM EDT us Eileen Schroeder MD, PhD LAB BLOOD ORDERABLES Final Result [facility] [address] * (ABNORMAL) Hepatic Function Panel (10/13/2024 5:35 AM EDT) Total Bilirubin 6.5(H) 0.0 - 1.5 mg/dL 10/13/2024 6:30 AM EDT [facility] Bilirubin, Direct 3.53(H) 0.00 - 0.40 mg/dL 10/13/2024 6:30 AM EDT [facility] AST 42(H) 13 - 39 U/L 10/13/2024 6:30 AM EDT [facility] ALT 19 7 - 52 U/L 10/13/2024 6:30 AM EDT [facility] Alkaline Phosphatase 108 36 - 125 U/L 10/13/2024 6:30 AM EDT [facility] Total Protein 4.4(L) 6.4 - 8.9 g/dL 10/13/2024 6:30 AM EDT [facility] Albumin 3.1(L) 3.5 - 5.7 g/dL 10/13/2024 6:30 AM EDT [facility] Bilirubin, Indirect 2.97(H) 0.00 - 1.10 mg/dL 10/13/2024 6:30 AM EDT [facility] Plasma 10/13/2024 5:35 AM EDT 10/13/2024 5:52 AM EDT Eileen Schroeder MD, PhD LAB BLOOD ORDERABLES Final Result [facility] [address] [facility] * Magnesium (10/13/2024 5:35 AM EDT) Magnesium 2.0 1.5 - 2.5 mg/dL 10/13/2024 6:30 AM EDT [facility] Plasma 10/13/2024 5:35 AM EDT 10/13/2024 5:52 AM EDT Eileen Schroeder MD, PhD LAB BLOOD ORDERABLES Final Result [facility] [address] [place] [id number], [facility] * (ABNORMAL) Renal Function Panel w/EGFR (10/13/2024 5:35 AM EDT) Sodium 134 133 - 146 mmol/L 10/13/2024 6:30 AM EDT [facility] Potassium 3.7 3.5 - 5.3 mmol/L 10/13/2024 6:30 AM EDT [facility] Chloride 109 98 - 110 mmol/L 10/13/2024 6:30 AM EDT [facility] CO2 14(L) 21 - 33 mmol/L 10/13/2024 6:30 AM EDT [facility] Anion Gap 11 3 - 16 mmol/L 10/13/2024 6:30 AM EDT [facility] BUN 54(H) 7 - 25 mg/dL 10/13/2024 6:30 AM EDT [facility] Creatinine 2.99(H) 0.60 - 1.30 mg/dL 10/13/2024 6:30 AM EDT [facility] Glucose 116(H) 70 - 100 mg/dL 10/13/2024 6:30 AM EDT [facility] Calcium 8.3(L) 8.6 - 10.3 mg/dL 10/13/2024 6:30 AM EDT [facility] Phosphorus 4.5 2.1 - 4.7 mg/dL 10/13/2024 6:30 AM EDT [facility] Albumin 3.1(L) 3.5 - 5.7 g/dL 10/13/2024 6:30 AM EDT [facility] Osmolality, Calculated 294 278 - 305 mOsm/kg 10/13/2024 6:30 AM EDT [facility] EGFR 26 10/13/2024 6:30 AM EDT [facility] Comment:As of 2021, the estimated GFR [...] MD, PhD LAB BLOOD ORDERABLES Final Result [facility] [address] [place] [address], [facility] * (ABNORMAL) CBC (10/13/2024 5:35 AM EDT) WBC 4.7 3.8 - 10.8 10E3/uL 10/13/2024 6:22 AM EDT [facility] RBC 2.06(L) 4.20 - 5.80 10E6/uL 10/13/2024 6:22 AM EDT [facility] Hemoglobin 7.4(L) 13.2 - 17.1 g/dL 10/13/2024 6:22 AM EDT [facility] Hematocrit 21.7(L) 38.5 - 50.0 % 10/13/2024 6:22 AM EDT [facility] MCV 105.4(H) 80.0 - 100.0 fL 10/13/2024 6:22 AM EDT [facility] MCH 35.9(H) 27.0 - 33.0 pg 10/13/2024 6:22 AM EDT [facility] MCHC 34.0 32.0 - 36.0 g/dL 10/13/2024 6:22 AM EDT [facility] RDW 18.5(H) 11.0 - 15.0 % 10/13/2024 6:22 AM EDT [facility] Platelets 35(L) 140 - 400 10E3/uL 10/13/2024 6:22 AM EDT [facility] Comment: CNV Specimen checked for clots. None detected. MPV 8.4 7.5 - 11.5 fL 10/13/2024 6:22 AM EDT [facility] Whole Blood 10/13/2024 5:35 AM EDT 10/13/2024 5:53 AM EDT us Eileen Schroeder MD, PhD LAB BLOOD ORDERABLES Final Result Performing Organization Address City/[facility] Co de Phone Number [facility] [address] [facility] * (ABNORMAL) Ammonia (10/13/2024 5:35 AM EDT) Ammonia 203(HH) 27 - 90 ug/dL 10/13/2024 7:16 AM EDT [facility] Comment: HEMOLYSIS EVIDENT. RESULTS MAY BE INFLUENCED. Critical Result [id number] Called to and read back by: KEY MELO RN at: 10/13/2024 07:15:55 by:[email or web address] Plasma 10/13/2024 5:35 AM EDT 10/13/2024 6:19 AM EDT us Ellis Mays DO LAB BLOOD ORDERABLES Final Resul t Performing Organization Address [facility] Co de Phone Number [facility] [address] [facility]. [address] * CARISA Rhythm Strip - Scan (10/12/2024 10:30 PM EDT) us Scanning [employer] SCAN DOCS - NO RESULTS Final Res ult * (ABNORMAL) Protime-INR (10/12/2024 5:44 AM EDT) Protime 25.7(H) 12.1 - 15.1 seconds 10/12/2024 6:12 AM EDT [facility] INR 2.3(H) 0.9 - 1.1 10/12/2024 6:12 AM EDT [facility] Comment: RECOMMENDED THERAPEUTIC RANGES USING INR : Stable oral anticoagulant therapy: 2.0 - 3.0 Mechanical prosthetic heart valve: 2.5 - 3.5 Recurrent acute myocardial infarction: 2.5 - 3.5 Plasma 10/12/2024 5:44 AM EDT 10/12/2024 5:58 AM EDT Eileen Schroeder MD, PhD LAB BLOOD ORDERABLES Final Result Performing Organization Address [facility] Co de Phone Number [facility] [address] * (ABNORMAL) Hepatic Function Panel (10/12/2024 5:44 AM EDT) Total Bilirubin 6.5(H) 0.0 - 1.5 mg/dL 10/12/2024 6:29 AM EDT [facility] Bilirubin, Direct 3.64(H) 0.00 - 0.40 mg/dL 10/12/2024 6:29 AM EDT [facility] AST 40(H) 13 - 39 U/L 10/12/2024 6:29 AM EDT [facility] ALT 19 7 - 52 U/L 10/12/2024 6:29 AM EDT [facility] Alkaline Phosphatase 99 36 - 125 U/L 10/12/2024 6:29 AM EDT [facility] Total Protein 4.2(L) 6.4 - 8.9 g/dL 10/12/2024 6:29 AM EDT [facility] Albumin 3.1(L) 3.5 - 5.7 g/dL 10/12/2024 6:29 AM EDT [facility] Bilirubin, Indirect 2.86(H) 0.00 - 1.10 mg/dL 10/12/2024 6:29 AM EDT [facility] Plasma 10/12/2024 5:44 AM EDT 10/12/2024 5:58 AM EDT Eileen Schroeder MD, PhD LAB BLOOD ORDERABLES Final Result Performing Organization Address City/[facility]/ZIP Co de Phone Number [facility] [address] [facility]. [address] * Magnesium (10/12/2024 5:44 AM EDT) Magnesium 1.9 1.5 - 2.5 mg/dL 10/12/2024 6:29 AM EDT [facility] Plasma 10/12/2024 5:44 AM EDT 10/12/2024 5:58 AM EDT us Eileen Schroeder MD, PhD LAB BLOOD ORDERABLES Final Result [facility] [address] [facility] * (ABNORMAL) Renal Function Panel w/EGFR (10/12/2024 5:44 AM EDT) Sodium 135 133 - 146 mmol/L 10/12/2024 6:29 AM EDT [facility] Potassium 3.7 3.5 - 5.3 mmol/L 10/12/2024 6:29 AM EDT [facility] Chloride 109 98 - 110 mmol/L 10/12/2024 6:29 AM EDT [facility] CO2 17(L) 21 - 33 mmol/L 10/12/2024 6:29 AM EDT [facility] Anion Gap 9 3 - 16 mmol/L 10/12/2024 6:29 AM EDT [facility] BUN 52(H) 7 - 25 mg/dL 10/12/2024 6:29 AM EDT [facility] Creatinine 2.94(H) 0.60 - 1.30 mg/dL 10/12/2024 6:29 AM EDT [facility] Glucose 121(H) 70 - 100 mg/dL 10/12/2024 6:29 AM EDT [facility] Calcium 8.5(L) 8.6 - 10.3 mg/dL 10/12/2024 6:29 AM EDT [facility] Phosphorus 4.6 2.1 - 4.7 mg/dL 10/12/2024 6:29 AM EDT [facility] Albumin 3.1(L) 3.5 - 5.7 g/dL 10/12/2024 6:29 AM EDT [facility] Osmolality, Calculated 295 278 - 305 mOsm/kg 10/12/2024 6:29 AM EDT [facility] EGFR 27 10/12/2024 6:29 AM EDT [facility] Comment:As of 2021, the estimated GFR [...] MD, PhD LAB BLOOD ORDERABLES Final Result [facility] [address] [id number], [facility] * (ABNORMAL) CBC (10/12/2024 5:44 AM EDT) WBC 3.3(L) 3.8 - 10.8 10E3/uL 10/12/2024 7:06 AM EDT [facility] RBC 1.95(L) 4.20 - 5.80 10E6/uL 10/12/2024 7:06 AM EDT [facility] Hemoglobin 7.2(L) 13.2 - 17.1 g/dL 10/12/2024 7:06 AM EDT [facility] Hematocrit 19.7(L) 38.5 - 50.0 % 10/12/2024 7:06 AM EDT [facility] MCV 101.2(H) 80.0 - 100.0 fL 10/12/2024 7:06 AM EDT [facility] MCH 37.0(H) 27.0 - 33.0 pg 10/12/2024 7:06 AM EDT [facility] MCHC 36.5(H) 32.0 - 36.0 g/dL 10/12/2024 7:06 AM EDT [facility] RDW 17.6(H) 11.0 - 15.0 % 10/12/2024 7:06 AM EDT [facility] Platelets 30(L) 140 - 400 10E3/uL 10/12/2024 7:06 AM EDT [facility] Comment: Specimen checked for clots. None detected. Slide Reviewed for PLT Clumps. None Seen. Platelet Estimate Decreased 10/12/2024 7:06 AM EDT [facility] MPV 8.3 7.5 - 11.5 fL 10/12/2024 7:06 AM EDT [facility] Whole Blood 10/12/2024 5:44 AM EDT 10/12/2024 5:58 AM EDT Narrative [facility] - 10/12/2024 7:06 AM EDT Peripheral blood smear was scanned per review criteria approved by the laboratory director medical. us Eileen Schroeder MD, PhD LAB BLOOD ORDERABLES Final Result [facility] [address] * CARISA Rhythm Strip - Scan (10/11/2024 10:04 PM EDT) us Scanning [employer]ch[employer] SCAN DOCS - NO RESULTS Final Res ult * (ABNORMAL) Protime-INR (10/11/2024 3:02 AM EDT) Protime 26.8(H) 12.1 - 15.1 seconds 10/11/2024 3:30 AM EDT [facility] INR 2.4(H) 0.9 - 1.1 10/11/2024 3:30 AM EDT [facility] Comment: RECOMMENDED THERAPEUTIC RANGES USING INR : Stable oral anticoagulant therapy: 2.0 - 3.0 Mechanical prosthetic heart valve: 2.5 - 3.5 Recurrent acute myocardial infarction: 2.5 - 3.5 Plasma 10/11/2024 3:02 AM EDT 10/11/2024 3:08 AM EDT Eileen Schroeder MD, PhD LAB BLOOD ORDERABLES Final Result Performing Organization Address City/[facility]/ZIP Co de Phone Number [facility] [address] [facility]. [address] * (ABNORMAL) Hepatic Function Panel (10/11/2024 3:02 AM EDT) Total Bilirubin 7.3(H) 0.0 - 1.5 mg/dL 10/11/2024 3:38 AM EDT [facility] Bilirubin, Direct 3.85(H) 0.00 - 0.40 mg/dL 10/11/2024 3:38 AM EDT [facility] AST 39 13 - 39 U/L 10/11/2024 3:38 AM EDT [facility] ALT 20 7 - 52 U/L 10/11/2024 3:38 AM EDT [facility] Alkaline Phosphatase 88 36 - 125 U/L 10/11/2024 3:38 AM EDT [facility] Total Protein 4.5(L) 6.4 - 8.9 g/dL 10/11/2024 3:38 AM EDT [facility] Albumin 3.3(L) 3.5 - 5.7 g/dL 10/11/2024 3:38 AM EDT [facility] Bilirubin, Indirect 3.45(H) 0.00 - 1.10 mg/dL 10/11/2024 3:38 AM EDT [facility] Plasma 10/11/2024 3:02 AM EDT 10/11/2024 3:08 AM EDT Eileen Schroeder MD, PhD LAB BLOOD ORDERABLES Final Result Performing Organization Address City/[facility]/ZIP Co de Phone Number [facility] [address] * Magnesium (10/11/2024 3:02 AM EDT) Magnesium 2.0 1.5 - 2.5 mg/dL 10/11/2024 3:38 AM EDT [facility] Plasma 10/11/2024 3:02 AM EDT 10/11/2024 3:08 AM EDT us Eileen Schroeder MD, PhD LAB BLOOD ORDERABLES Final Result [facility] [address] [id number] * (ABNORMAL) Renal Function Panel w/EGFR (10/11/2024 3:02 AM EDT) Sodium 134 133 - 146 mmol/L 10/11/2024 3:38 AM EDT [facility] Potassium 3.6 3.5 - 5.3 mmol/L 10/11/2024 3:38 AM EDT [facility] Chloride 108 98 - 110 mmol/L 10/11/2024 3:38 AM EDT [facility] CO2 16(L) 21 - 33 mmol/L 10/11/2024 3:38 AM EDT [facility] Anion Gap 10 3 - 16 mmol/L 10/11/2024 3:38 AM EDT [facility] BUN 49(H) 7 - 25 mg/dL 10/11/2024 3:38 AM EDT [facility] Creatinine 2.77(H) 0.60 - 1.30 mg/dL 10/11/2024 3:38 AM EDT [facility] Glucose 112(H) 70 - 100 mg/dL 10/11/2024 3:38 AM EDT [facility] Calcium 8.9 8.6 - 10.3 mg/dL 10/11/2024 3:38 AM EDT [facility] Phosphorus 3.5 2.1 - 4.7 mg/dL 10/11/2024 3:38 AM EDT [facility] Albumin 3.3(L) 3.5 - 5.7 g/dL 10/11/2024 3:38 AM EDT [facility] Osmolality, Calculated 292 278 - 305 mOsm/kg 10/11/2024 3:38 AM EDT [facility] EGFR 29 10/11/2024 3:38 AM EDT [facility] Comment:As of 2021, the estimated GFR [...] MD, PhD LAB BLOOD ORDERABLES Final Result [facility] [address] [place] [address], [facility] * (ABNORMAL) CBC (10/11/2024 3:02 AM EDT) WBC 4.0 3.8 - 10.8 10E3/uL 10/11/2024 3:55 AM EDT [facility] RBC 2.11(L) 4.20 - 5.80 10E6/uL 10/11/2024 3:55 AM EDT [facility] Hemoglobin 7.7(L) 13.2 - 17.1 g/dL 10/11/2024 3:55 AM EDT [facility] Hematocrit 21.2(L) 38.5 - 50.0 % 10/11/2024 3:55 AM EDT [facility] MCV 100.5(H) 80.0 - 100.0 fL 10/11/2024 3:55 AM EDT [facility] MCH 36.4(H) 27.0 - 33.0 pg 10/11/2024 3:55 AM EDT [facility] MCHC 36.2(H) 32.0 - 36.0 g/dL 10/11/2024 3:55 AM EDT [facility] RDW 17.9(H) 11.0 - 15.0 % 10/11/2024 3:55 AM EDT [facility] Platelets 32(L) 140 - 400 10E3/uL 10/11/2024 3:55 AM EDT [facility] Comment: Specimen checked for clots. None detected. Slide Reviewed for PLT Clumps. None Seen. Platelet Estimate Decreased 10/11/2024 3:55 AM EDT [facility] MPV 8.1 7.5 - 11.5 fL 10/11/2024 3:55 AM EDT [facility] Whole Blood 10/11/2024 3:02 AM EDT 10/11/2024 3:08 AM EDT Narrative [facility] - 10/11/2024 3:55 AM EDT Peripheral blood smear was scanned per review criteria approved by the laboratory director medical. us Eileen Schroeder MD, PhD LAB BLOOD ORDERABLES Final Result [facility] [address] * Vancomycin, random (10/11/2024 3:02 AM EDT) Vancomycin Random 13.4 ug/mL 10/11/2024 3:37 AM EDT [facility] Comment:Reference range not established for this test. Plasma 10/11/2024 3:02 AM EDT 10/11/2024 3:08 AM EDT us Jodi FreireD LAB BLOOD ORDERABLES Final Result [facility] [address] [facility]. [address] * IR Paracentesis incl imaging guide [...] diagnostic and therapeutic paracentesis. Bakari Wahl CNP, Retort Operator Procedure and Findings: The procedure was performed [...] Using ultrasound guidance, a 10 cm, 5-F [employer] Centesis catheter was placed into the right [...] for diagnostic andtherapeutic paracentesis. Bakari Wahl CNP, Retort Operator Procedure and Findings: The procedure was performed [...] Using ultrasound guidance, a 10 cm, 5-F [employer] Centesis catheter was placedinto the right lower [...] Colorless, Pale Yellow 10/10/2024 5:29 PM EDT [facility] Clarity, Fluid Clear 10/10/2024 5:29 PM EDT [facility] Neutrophil %, Fluid 9 % 10/10/2024 5:29 PM EDT [facility] Lymphocytes %, Fluid 13 % 10/10/2024 5:29 PM EDT [facility] Mesothelial %, Fluid 6 % 10/10/2024 5:29 PM EDT [facility] Macrophage %, Fluid 72 % 10/10/2024 5:29 PM EDT [facility] RBC, Fluid 2,662 /uL 10/10/2024 4:41 PM EDT [facility] Total Nucleated Cells, Fluid 89 /uL 10/10/2024 4:41 PM EDT [facility] Comment:Total Nucleated Cell s represent WBCs and other nucleated cells in the fluid such as lining cells. Ascitic Fluid ABDOMEN / Unknown 1:51 PM EDT 10/10/2024 3:56 PM EDT Gerri Peterson MD BODY FLUIDS AND STOOLS ORDERABL ES Final Result Performing Organization Address City/[facility]/ZIP Co de Phone Number [facility] [address] * Body Fluid Culture plus Stain (10/10/2024 1:51 PM EDT) Gram Stain Result Cytospin Results: [facility] Gram Stain Result Polymorphonuclear Leukocytes Seen; [facility] Gram Stain Result No Organisms Seen; [facility] Culture Result No Growth After 5 Days [facility] Fluid ABDOMEN / Unknown 10/10/2024 1:51 PM EDT 10/10/2024 3:56 PM EDT Gerri Peterson MD MICROBIOLOGY - GENERAL ORDERABL ES Final Result [facility] [address] * UPPER GI ENDOSCOPY (10/10/2024 11:48 AM EDT) 10/10/2024 11:4 8 AM EDT Narrative [facility] - 10/10/2024 12:34 PM EDT [id number] Procedure Date: 10/10/2024 11:48 AM Patient Name: Julien Gilbert Date of : 1985 Admit Type: Inpatient Age: 39 Gender: Male Note Status: Finalized Attending MD: Lino Soto MD, [id number] Procedure: Upper GI endoscopy Indications: Gastroesopahgeal variceal [...] verified by the physician, the nurse, the tourist cabin keeper and the emergency room technician in the pre-procedure area in the [...] to hypotension Procedure Code(s): --- Professional --- 56817, GC, Esophagogastroduodenoscopy, flexible, transoral; diagnostic, including collection of specimen(s) by brushing or washing, when performed (separate procedure) Diagnosis Code(s): --- Professional --- I85.00, Esophageal varices without bleeding K76.6, Portal hypertension K31.89, Other diseases of stomach and duodenum CPT copyright 2022 [employer]. All rights reserved. The codes documented in this report are preliminary and upon remote coders review may be revised to meet current compliance requirements. Attending Participation: I was present and participated during the entire procedure, including non-albarado portions. Lino Soto MD Lino Soto MD 10/10/2024 12:34:37 PM This report has been signed electronically.MD Vernon Apipah MD Gerri Peterson MD 10/10/2024 12:29:47 PM Total Procedure Duration Time 0 hours 7 minutes 12 seconds Scope In: 12:10:16 PM Scope Out: 12:17:[address] [place] [address], Count includes the [facility] us Provider Not In System PROCEDURE/MINOR SURGICAL ORDERABLES Final Result Performing Organization Address [facility] Co de Phone Number [facility] * (ABNORMAL) Protime-INR (10/10/2024 5:23 AM EDT) Protime 23.9(H) 12.1 - 15.1 seconds 10/10/2024 6:11 AM EDT [facility] INR 2.1(H) 0.9 - 1.1 10/10/2024 6:11 AM EDT [facility] Comment: RECOMMENDED THERAPEUTIC RANGES USING INR : Stable oral anticoagulant therapy: 2.0 - 3.0 Mechanical prosthetic heart valve: 2.5 - 3.5 Recurrent acute myocardial infarction: 2.5 - 3.5 Plasma 10/10/2024 5:23 AM EDT 10/10/2024 5:50 AM EDT us Eileen Schroeder MD, PhD LAB BLOOD ORDERABLES Final Result Performing Organization Address City/[facility] Co de Phone Number [facility] [address] [place] [address] * (ABNORMAL) Hepatic Function Panel (10/10/2024 5:23 AM EDT) Total Bilirubin 8.6(H) 0.0 - 1.5 mg/dL 10/10/2024 6:21 AM EDT [facility] Bilirubin, Direct 4.65(H) 0.00 - 0.40 mg/dL 10/10/2024 6:21 AM EDT [facility] AST 40(H) 13 - 39 U/L 10/10/2024 6:21 AM EDT [facility] ALT 22 7 - 52 U/L 10/10/2024 6:21 AM EDT [facility] Alkaline Phosphatase 118 36 - 125 U/L 10/10/2024 6:21 AM EDT [facility] Total Protein 4.6(L) 6.4 - 8.9 g/dL 10/10/2024 6:21 AM EDT [facility] Albumin 3.3(L) 3.5 - 5.7 g/dL 10/10/2024 6:21 AM EDT [facility] Bilirubin, Indirect 3.95(H) 0.00 - 1.10 mg/dL 10/10/2024 6:21 AM EDT [facility] Plasma 10/10/2024 5:23 AM EDT 10/10/2024 5:50 AM EDT us Eileen Schroeder MD, PhD LAB BLOOD ORDERABLES Final Result Performing Organization Address City/[facility]/ZIP Co de Phone Number [facility] [address] * Magnesium (10/10/2024 5:23 AM EDT) Magnesium 1.9 1.5 - 2.5 mg/dL 10/10/2024 6:21 AM EDT [facility] Plasma 10/10/2024 5:23 AM EDT 10/10/2024 5:50 AM EDT Eileen Schroeder MD, PhD LAB BLOOD ORDERABLES Final Result Performing Organization Address City/[facility]/ZIP Co de Phone Number [facility] [address] * (ABNORMAL) Renal Function Panel w/EGFR (10/10/2024 5:23 AM EDT) Sodium 135 133 - 146 mmol/L 10/10/2024 6:21 AM EDT [facility] Potassium 3.6 3.5 - 5.3 mmol/L 10/10/2024 6:21 AM EDT [facility] Chloride 108 98 - 110 mmol/L 10/10/2024 6:21 AM EDT [facility] CO2 17(L) 21 - 33 mmol/L 10/10/2024 6:21 AM EDT [facility] Anion Gap 10 3 - 16 mmol/L 10/10/2024 6:21 AM EDT [facility] BUN 53(H) 7 - 25 mg/dL 10/10/2024 6:21 AM EDT [facility] Creatinine 2.85(H) 0.60 - 1.30 mg/dL 10/10/2024 6:21 AM EDT [facility] Glucose 113(H) 70 - 100 mg/dL 10/10/2024 6:21 AM EDT [facility] Calcium 9.0 8.6 - 10.3 mg/dL 10/10/2024 6:21 AM EDT [facility] Phosphorus 3.3 2.1 - 4.7 mg/dL 10/10/2024 6:21 AM EDT [facility] Albumin 3.3(L) 3.5 - 5.7 g/dL 10/10/2024 6:21 AM EDT [facility] Osmolality, Calculated 295 278 - 305 mOsm/kg 10/10/2024 6:21 AM EDT [facility] EGFR 28 10/10/2024 6:21 AM EDT [facility] Comment:As of 2021, the estimated GFR [...] MD, PhD LAB BLOOD ORDERABLES Final Result [facility] [address] [place] [address], [facility] * (ABNORMAL) CBC (10/10/2024 5:23 AM EDT) WBC 5.1 3.8 - 10.8 10E3/uL 10/10/2024 6:14 AM EDT [facility] RBC 2.04(L) 4.20 - 5.80 10E6/uL 10/10/2024 6:14 AM EDT [facility] Hemoglobin 7.3(L) 13.2 - 17.1 g/dL 10/10/2024 6:14 AM EDT [facility] Hematocrit 20.6(L) 38.5 - 50.0 % 10/10/2024 6:14 AM EDT [facility] MCV 101.2(H) 80.0 - 100.0 fL 10/10/2024 6:14 AM EDT [facility] MCH 36.0(H) 27.0 - 33.0 pg 10/10/2024 6:14 AM EDT [facility] MCHC 35.5 32.0 - 36.0 g/dL 10/10/2024 6:14 AM EDT [facility] RDW 17.6(H) 11.0 - 15.0 % 10/10/2024 6:14 AM EDT [facility] Platelets 39(L) 140 - 400 10E3/uL 10/10/2024 6:14 AM EDT [facility] Comment: CNV Specimen checked for clots. None detected. MPV 9.8 7.5 - 11.5 fL 10/10/2024 6:14 AM EDT [facility] Whole Blood 10/10/2024 5:23 AM EDT 10/10/2024 5:51 AM EDT us Eileen Schroeder MD, PhD LAB BLOOD ORDERABLES Final Result Performing Organization Address City/[facility]/ZIP Co de Phone Number [facility] [address] [place] [address] * Vancomycin, random (10/10/2024 5:23 AM EDT) Vancomycin Random 16.4 ug/mL 10/10/2024 6:22 AM EDT [facility] Comment:Reference range not established for this test. Plasma 10/10/2024 5:23 AM EDT 10/10/2024 5:51 AM EDT us Jodi FreireD LAB BLOOD ORDERABLES Final Result Performing Organization Address [facility] Co de Phone Number [facility] [address] [place] [address] * ECHO STRESS W/ CONTRAST (10/09/2024 4:37 PM EDT) Anatomical Region Laterality Modality Chest Ultrasound 10/09/2024 2:40 PM EDT Narrative 10/09/2024 6:45 PM EDT * [facility]* [address] [place] [address] Stress Echocardiogram Patient: Julien Gilbert Room: 8142 Height: 76in MR Number: [id number] : 1985 Weight: 262lb Account: [id number] Gender: M BP: 125 / 77 Study Date: 10/09/2024 Age: 39 BSA: 2.48m^2 Referring physician: Gerri Peterson Interpreting physician: Tonya Henriquez MD FELLOW Lisa Jha MD PERFORMING Tonya Henriquez MD SURVEY STATISTICIAN [employer] ORDERING Gerri Peterson REFERRING Gerri [...] was augmented by the addition of hand director trust and leg lifts. The infusion was terminated [...] at baseline or with provocation, shows no wnmpn-dh-jvau atrial level shunt. - Pulmonary arteries: Systolic [...] at baseline or with provocation, shows no mhixf-ad-zeld atrial level shunt. Pulmonary artery: - Systolic [...] at baseline or with provocation, shows no pdkds-lw-siad atrial level shunt. Pericardium: - There is [...] peak heart rate and blood pressure was 45457nw Hg/min. Stress testing did not produce any [...] TDI (N) 7.9 cm/sec >=7.0 E/e', med reggei, TDI 13 --------- E', avg, TDI 9.4 [...] Reviewed and confirmed by Tonya Henriquez MD [id number] Procedure Note Tonya Henriquez MD - 10/09/2024 * [facility]* [address] [place] [address] Stress Echocardiogram Patient: Julien Gilbert Room: 8142 Height: 76in MR Number: [id number] : 1985 Weight: 262lb Account: [id number] Gender: M BP: 125 / 77 Study Date: 10/09/2024 Age: 39 BSA: 2.48m^2 Referring physician: Gerri Peterson Interpreting physician: Tonya Henriquez MD FELLOW Lisa Jha MD PERFORMING Tonya Henriquez MD SURVEY STATISTICIAN [employer] ORDERING Gerri Peterson REFERRING Gerri Peterson ATTENDING Fouzia Rene ADMITTING Angie Blanchard Procedure:STRESS ECHO - PHARMACOLOGIC Order: Indications: Pre-Operative Clearance (Z01.818). PMH: EtOH Use Disorder. Risk factors: Hypertension. Dyslipidemia. Study data: Height: 76in. 193cm. Weight: 262lb. 118.8kg. The previousstudy was not available, so comparison was made to the report of 07/15/2024. Study status: Routine. Procedure: [facility]. Intravenous [...] was augmented by the addition of hand director trust and leg lifts. The infusion was terminated [...] at baseline or with provocation, shows no lkhka-rg-kgsj atrial level shunt. - Pulmonary arteries: Systolic [...] study at baseline or with provocation, showsno qoisu-rz-hffh atrial level shunt. Pulmonary artery: - Systolic [...] at baseline or with provocation, shows no mqhul-eb-qhfh atrial level shunt. Pericardium: - There is [...] heart rate). The maximal predicted heart rate [id number]. The target heart rate was 152bpm. The target heart rate was achieved.The heart rate response to stress is normal. There is a normal resting blood pressure with an appropriate response to stress. The rate-pressureproduct for the peak heart rate and blood pressure was 15596fq Hg/min. Stress testing did not produce any [...] Reviewed and confirmed by Tonya Henriquez MD [id number] Gerri Peterson MD CV ECHO ORDERABLES Final Result * (ABNORMAL) Renal Function Panel w/EGFR, STAT (10/09/2024 1:05 PM EDT) Sodium 134 133 - 146 mmol/L 10/09/2024 2:10 PM EDT [facility] Potassium 3.7 3.5 - 5.3 mmol/L 10/09/2024 2:10 PM EDT [facility] Chloride 105 98 - 110 mmol/L 10/09/2024 2:10 PM EDT [facility] CO2 17(L) 21 - 33 mmol/L 10/09/2024 2:10 PM EDT [facility] Anion Gap 12 3 - 16 mmol/L 10/09/2024 2:10 PM EDT [facility] BUN 53(H) 7 - 25 mg/dL 10/09/2024 2:10 PM EDT [facility] Creatinine 2.89(H) 0.60 - 1.30 mg/dL 10/09/2024 2:10 PM EDT [facility] Glucose 108(H) 70 - 100 mg/dL 10/09/2024 2:10 PM EDT [facility] Calcium 9.3 8.6 - 10.3 mg/dL 10/09/2024 2:10 PM EDT [facility] Phosphorus 3.4 2.1 - 4.7 mg/dL 10/09/2024 2:10 PM EDT [facility] Albumin 3.6 3.5 - 5.7 g/dL 10/09/2024 2:10 PM EDT [facility] Osmolality, Calculated 293 278 - 305 mOsm/kg 10/09/2024 2:10 PM EDT [facility] EGFR 27 10/09/2024 2:10 PM EDT [facility] Comment:As of 2021, the estimated GFR [...] MD, PhD LAB BLOOD ORDERABLES Final Result [facility] [address] * (ABNORMAL) Renal Function Panel w/EGFR, STAT (10/09/2024 8:14 AM EDT) Sodium 134 133 - 146 mmol/L 10/09/2024 8:47 AM EDT [facility] Potassium 3.4(L) 3.5 - 5.3 mmol/L 10/09/2024 8:47 AM EDT [facility] Chloride 107 98 - 110 mmol/L 10/09/2024 8:47 AM EDT [facility] CO2 17(L) 21 - 33 mmol/L 10/09/2024 8:47 AM EDT [facility] Anion Gap 10 3 - 16 mmol/L 10/09/2024 8:47 AM T [facility] BUN 54(H) 7 - 25 mg/dL 10/09/2024 8:47 AM EDT [facility] Creatinine 3.04(H) 0.60 - 1.30 mg/dL 10/09/2024 8:47 AM EDT [facility] Glucose 124(H) 70 - 100 mg/dL 10/09/2024 8:47 AM EDT [facility] Calcium 9.0 8.6 - 10.3 mg/dL 10/09/2024 8:47 AM EDT [facility] Phosphorus 3.5 2.1 - 4.7 mg/dL 10/09/2024 8:47 AM EDT [facility] Albumin 3.4(L) 3.5 - 5.7 g/dL 10/09/2024 8:47 AM T [facility] Osmolality, Calculated 294 278 - 305 mOsm/kg 10/09/2024 8:47 AM EDT [facility] EGFR 26 10/09/2024 8:47 AM EDT [facility] Comment:As of 2021, the estimated GFR [...] MD LAB BLOOD ORDERABLES Final Resu lt [facility] [address] * Prepare RBC, leukoreduced, 1 Units (10/09/2024 6:16 AM EDT) Product Code K9471N39 [facility] Unit Number [id number] [facility] Dispense Status Presumed Transfused_PT [facility] Blood Expiration Date [id number] [facility] Coding System [id number] [facility] Blood Bank Product Eileen Schroeder MD, PhD BLOOD BANK PRODUCT OR DERABLES Final Result Performing Organization Address City/[facility]/ZIP Co de Phone Number [facility]LL * (ABNORMAL) Protime-INR (10/09/2024 4:59 AM EDT) Protime 26.5(H) 12.1 - 15.1 seconds 10/09/2024 6:30 AM EDT [facility] INR 2.4(H) 0.9 - 1.1 10/09/2024 6:30 AM EDT [facility] Comment: RECOMMENDED THERAPEUTIC RANGES USING INR : Stable oral anticoagulant therapy: 2.0 - 3.0 Mechanical prosthetic heart valve: 2.5 - 3.5 Recurrent acute myocardial infarction: 2.5 - 3.5 Plasma 10/09/2024 4:59 AM EDT 10/09/2024 5:55 AM EDT Eileen Schroeder MD, PhD LAB BLOOD ORDERABLES Final Result Performing Organization Address City/[facility]/ZIP Co de Phone Number [facility] [address] [facility]. [address] * (ABNORMAL) Hepatic Function Panel (10/09/2024 4:59 AM EDT) Total Bilirubin 9.0(H) 0.0 - 1.5 mg/dL 10/09/2024 6:42 AM EDT [facility] Bilirubin, Direct 4.60(H) 0.00 - 0.40 mg/dL 10/09/2024 6:42 AM EDT [facility] AST 38 13 - 39 U/L 10/09/2024 6:42 AM EDT [facility] ALT 18 7 - 52 U/L 10/09/2024 6:42 AM EDT [facility] Alkaline Phosphatase 122 36 - 125 U/L 10/09/2024 6:42 AM EDT [facility] Total Protein 4.8(L) 6.4 - 8.9 g/dL 10/09/2024 6:42 AM EDT [facility] Albumin 3.4(L) 3.5 - 5.7 g/dL 10/09/2024 6:42 AM EDT [facility] Bilirubin, Indirect 4.40(H) 0.00 - 1.10 mg/dL 10/09/2024 6:42 AM EDT [facility] Plasma 10/09/2024 4:59 AM EDT 10/09/2024 5:57 AM EDT Eileen Schroeder MD, PhD LAB BLOOD ORDERABLES Final Result [facility] [address] [facility]. [address] * Magnesium (10/09/2024 4:59 AM EDT) Magnesium 1.8 1.5 - 2.5 mg/dL 10/09/2024 6:42 AM EDT [facility] Plasma 10/09/2024 4:59 AM EDT 10/09/2024 5:57 AM EDT us Eileen Schroeder MD, PhD LAB BLOOD ORDERABLES Final Result [facility] [address] [place] [address], [facility] * (ABNORMAL) Renal Function Panel w/EGFR (10/09/2024 4:59 AM EDT) Sodium 134 133 - 146 mmol/L 10/09/2024 6:42 AM EDT [facility] Potassium 3.3(L) 3.5 - 5.3 mmol/L 10/09/2024 6:42 AM EDT [facility] Chloride 107 98 - 110 mmol/L 10/09/2024 6:42 AM EDT [facility] CO2 16(L) 21 - 33 mmol/L 10/09/2024 6:42 AM EDT [facility] Anion Gap 11 3 - 16 mmol/L 10/09/2024 6:42 AM EDT [facility] BUN 56(H) 7 - 25 mg/dL 10/09/2024 6:42 AM EDT [facility] Creatinine 2.98(H) 0.60 - 1.30 mg/dL 10/09/2024 6:42 AM EDT [facility] Glucose 112(H) 70 - 100 mg/dL 10/09/2024 6:42 AM EDT [facility] Calcium 9.0 8.6 - 10.3 mg/dL 10/09/2024 6:42 AM EDT [facility] Phosphorus 3.5 2.1 - 4.7 mg/dL 10/09/2024 6:42 AM EDT [facility] Albumin 3.4(L) 3.5 - 5.7 g/dL 10/09/2024 6:42 AM EDT [facility] Osmolality, Calculated 294 278 - 305 mOsm/kg 10/09/2024 6:42 AM EDT [facility] EGFR 26 10/09/2024 6:42 AM EDT [facility] Comment:As of 2021, the estimated GFR [...] MD, PhD LAB BLOOD ORDERABLES Final Result [facility] [address] [place] [address], [facility] * (ABNORMAL) CBC (10/09/2024 4:59 AM EDT) WBC 4.6 3.8 - 10.8 10E3/uL 10/09/2024 6:21 AM EDT [facility] RBC 2.17(L) 4.20 - 5.80 10E6/uL 10/09/2024 6:21 AM EDT [facility] Hemoglobin 8.0(L) 13.2 - 17.1 g/dL 10/09/2024 6:21 AM EDT [facility] Hematocrit 21.8(L) 38.5 - 50.0 % 10/09/2024 6:21 AM EDT [facility] MCV 100.5(H) 80.0 - 100.0 fL 10/09/2024 6:21 AM EDT [facility] MCH 36.7(H) 27.0 - 33.0 pg 10/09/2024 6:21 AM EDT [facility] MCHC 36.5(H) 32.0 - 36.0 g/dL 10/09/2024 6:21 AM EDT [facility] RDW 18.1(H) 11.0 - 15.0 % 10/09/2024 6:21 AM EDT [facility] Platelets 36(L) 140 - 400 10E3/uL 10/09/2024 6:21 AM EDT [facility] Comment:Specimen checked for clots. None detected. MPV 8.3 7.5 - 11.5 fL 10/09/2024 6:21 AM EDT [facility] Whole Blood 10/09/2024 4:59 AM EDT 10/09/2024 5:56 AM EDT us Eileen Schroeder MD, PhD LAB BLOOD ORDERABLES Final Result Performing Organization Address [facility] Co de Phone Number [facility] [address] * Renal Tx Recipient (10/09/2024 4:59 AM EDT) Pathologist [facility] Renal Transplant Recipient The request and specimen(s) for this test have been received and transported to the [facility] at [address] [place] [address]. The [facility] will report results directly to the client. 10/09/2024 7:26 AM EDT [facility] Blood 10/09/2024 4:59 AM EDT 10/09/2024 7:26 AM EDT us Aaron Gonzalez MD LAB BLOOD ORDERABLES Final Resu lt Performing Organization Address [facility] Co de Phone Number [facility] [address] * Vancomycin, random (10/09/2024 4:59 AM EDT) Pathologist [facility] Vancomycin Random 11.0 ug/mL 10/09/2024 6:33 AM EDT [facility] Comment:Reference range not established for this test. Plasma 10/09/2024 4:59 AM EDT 10/09/2024 5:56 AM EDT us Jodi FreireD LAB BLOOD ORDERABLES Final Result [facility] [address] * (ABNORMAL) CBC (10/08/2024 5:52 PM EDT) WBC 5.6 3.8 - 10.8 10E3/uL 10/08/2024 6:52 PM EDT [facility] RBC 2.38(L) 4.20 - 5.80 10E6/uL 10/08/2024 6:52 PM EDT [facility] Hemoglobin 8.3(L) 13.2 - 17.1 g/dL 10/08/2024 6:52 PM EDT [facility] Hematocrit 24.6(L) 38.5 - 50.0 % 10/08/2024 6:52 PM EDT [facility] MCV 103.2(H) 80.0 - 100.0 fL 10/08/2024 6:52 PM EDT [facility] MCH 34.7(H) 27.0 - 33.0 pg 10/08/2024 6:52 PM EDT [facility] MCHC 33.6 32.0 - 36.0 g/dL 10/08/2024 6:52 PM EDT [facility] RDW 18.5(H) 11.0 - 15.0 % 10/08/2024 6:52 PM EDT [facility] Platelets 39(L) 140 - 400 10E3/uL 10/08/2024 6:52 PM EDT [facility] Comment:CNV MPV 8.1 7.5 - 11.5 fL 10/08/2024 6:52 PM EDT [facility] Whole Blood 10/08/2024 5:52 PM EDT 10/08/2024 6:45 PM EDT us Eileen Schroeder MD, PhD LAB BLOOD ORDERABLES Final Result [facility] [address] * Transfuse RBC Has consent been obtained? Yes; Transfusion Rate: Per dept routine (10/08/2024 1:17 PM EDT) us Eileen Schroeder MD, PhD NURSING TREATMENT ORD ERABLES - BLOOD ADMIN Final Result Performing Organization Address City/[facility]/ZIP Co de Phone Number EXTERNAL * Transfuse RBC Has consent been obtained? Yes; Transfusion Rate: Per dept routine, 1 Units (10/08/2024 1:17 PM EDT) Eileen Schroeder MD, PhD NURSING TREATMENT ORD ERABLES - BLOOD ADMIN Final Result Performing Organization Address City/[facility] Co de Phone Number EXTERNAL * (ABNORMAL) MMR(IgG) Panel (Measles, Mumps, Rubella) (10/08/2024 10:25 AM EDT) [facility] Signature Mumps IgG Positive 10/08/2024 11:39 AM EDT [facility] MUMPS IGG NUM 99.00(H) 0.0 - 8.9 U/mL 10/08/2024 11:39 AM EDT [facility] Rubella IgG Scr Positive 10/08/2024 11:40 AM EDT [facility] RUB NUM 4.15(H) 0.00 - 0.89 INDEX 10/08/2024 11:40 AM EDT [facility] Rubeola Ab, IgG Positive 10/08/2024 11:39 AM EDT [facility] RUB IGG NUM 273.00(H) 0.00 - 13.40 U/mL 10/08/2024 11:39 AM EDT [facility] Serum 10/08/2024 10:2 5 AM EDT 10/08/2024 10:49 AM EDT Narrative [facility] - 10/08/2024 11:40 AM EDT Presence [...] ORDERABLES Final Resu lt Performing Organization Address City/[facility]/ZIP Co de Phone Number [facility] [address] * (ABNORMAL) Hemoglobin A1C (10/08/2024 10:25 AM EDT) Hemoglobin A1C 3.7(L) 4.0 - 5.6 % 10/09/2024 1:22 PM EDT [facility] Comment: Hemoglobin A1c Interpretation Guidelines: Normal: [...] MD LAB BLOOD ORDERABLES Final Resu lt [facility] [address] * (ABNORMAL) Vitamin D 25 Hydroxy (10/08/2024 10:25 AM EDT) Vit D, 25-Hydroxy 7.1(L) 30.0 - 100.0 ng/mL 10/08/2024 11:36 AM EDT [facility] Comment: Vitamin D deficiency has been defined by the [employer] (IOM) and an Endocrine Society [...] Endocrine Society clinical practice guideline. JCEM. 2010; 96(1):1911-30. Serum 10/08/2024 10:2 5 AM EDT 10/08/2024 10:49 AM EDT us Gerri Peterson MD LAB BLOOD ORDERABLES Final Resu lt Performing Organization Address City/[facility]/ZIP Co de Phone Number [facility] [address] [facility]. [address] * Iron Studies (Iron + TIBC) (10/08/2024 10:25 AM EDT) Iron 81 50 - 212 ug/dL 10/08/2024 11:23 AM EDT [facility] % Iron Saturation SEE COMMENT 15.0 - 55.0 % 10/08/2024 11:23 AM EDT [facility] Comment:Unable to calculate result because contributing result outside reportable range.. TIBC SEE COMMENT 261 - 462 ug/dL 10/08/2024 11:23 AM EDT [facility] Comment:Unable to calculate result because contributing result outside reportable range.. Serum 10/08/2024 10:2 5 AM EDT 10/08/2024 10:49 AM EDT us Gerri Peterson MD LAB BLOOD ORDERABLES Final Resu lt Performing Organization Address City/[facility]/ZIP Co de Phone Number [facility] [address] [facility] * (ABNORMAL) Ferritin (10/08/2024 10:25 AM EDT) Ferritin 706.9(H) 23.9 - 336.2 ng/mL 10/08/2024 11:35 AM EDT [facility] Serum 10/08/2024 10:2 5 AM EDT 10/08/2024 10:49 AM EDT us Gerri Peterson MD LAB BLOOD ORDERABLES Final Resu lt [facility] [address] [facility] * QuantiFERON TB2 Ag (10/08/2024 10:25 AM EDT) QuantiFERON TB2 Ag Value 0.07 10/10/2024 10:41 AM EDT [facility] Plasma 10/08/2024 10:2 5 AM EDT 10/08/2024 11:05 AM EDT Gerri Peterson MD LAB BLOOD ORDERABLES Final Resu lt [facility] [address] [facility] * QuantiFERON TB1 Ag (10/08/2024 10:25 AM EDT) QuantiFERON TB1 Ag Value 0.06 10/10/2024 10:41 AM EDT [facility] Plasma 10/08/2024 10:2 5 AM EDT 10/08/2024 11:05 AM EDT Gerri Peterson MD LAB BLOOD ORDERABLES Final Resu lt Performing Organization Address City/[facility] Co de Phone Number [facility] [address] [facility] * QuantiFERON Nil (10/08/2024 10:25 AM EDT) QuantiFERON Nil 0.06 10:41 AM EDT [facility] Plasma 10/08/2024 10:2 5 AM EDT 10/08/2024 11:05 AM EDT Gerri Peterson MD LAB BLOOD ORDERABLES Final Resu lt Performing Organization Address City/[facility] Co de Phone Number [facility] [address] [facility] * QuantiFERON Mitogen (10/08/2024 10:25 AM EDT) QuantiFERON Interpretation Negative Negative 10/10/2024 10:41 AM EDT [facility] Comment:Negative result geovanny cates M. tuberculosis infection is NOT likely. Negative results do not preclude tuberculosis infection (especially in immunosuppressed patients). Negative results have a TB antigen minus Nil value less than 0.35 IU/mL. In cases with high suspicion of disease, retesting or additional testing with medical evaluation may be useful. QuantiFERON Mitogen 4.87 10/10 10:41 AM EDT [facility] Plasma 10/08/2024 10:2 5 AM EDT 10/08/2024 11:05 AM EDT Narrative [facility] - 10/10/2024 10:41 AM EDT The [...] MD LAB BLOOD ORDERABLES Final Resu lt [facility] [address] [place] [id number] * Reticulocyte Count, Auto (10/08/2024 7:41 AM EDT) Retic Ct Pct 1.35 0.50 - 2.00 % 10/08/2024 9:12 AM EDT [facility] Retic Ct Abs 26,190 25,000 - 90,000 /uL 10/08/2024 9:14 AM EDT [facility] Immature Retic Fract 0.37 0.09 - 0.56 10/08/2024 9:12 AM EDT [facility] Whole Blood 10/08/2024 7:41 AM EDT 10/08/2024 8:51 AM EDT Angie Blanchard MD LAB BLOOD ORDERABLES Final Res ult [facility] [address] [facility] * (ABNORMAL) Haptoglobin (10/08/2024 7:41 AM EDT) Haptoglobin <30(L) 44 - 215 mg/dL 10/08/2024 8:53 AM EDT [facility] Serum 10/08/2024 7:41 AM EDT 10/08/2024 7:51 AM EDT us Eileen Schroeder MD, PhD LAB BLOOD ORDERABLES Final Result Performing Organization Address [facility]/ZIP Co de Phone Number [facility] [address] [place] [facility]. [address] * (ABNORMAL) CBC - Post Transfusion (10/08/2024 7:41 AM EDT) WBC 3.7(L) 3.8 - 10.8 10E3/uL 10/08/2024 8:34 AM EDT [facility] RBC 1.94(L) 4.20 - 5.80 10E6/uL 10/08/2024 8:34 AM EDT [facility] Hemoglobin 7.1(L) 13.2 - 17.1 g/dL 10/08/2024 8:34 AM EDT [facility] Hematocrit 20.0(L) 38.5 - 50.0 % 10/08/2024 8:34 AM EDT [facility] MCV 103.1(H) 80.0 - 100.0 fL 10/08/2024 8:34 AM EDT [facility] MCH 36.5(H) 27.0 - 33.0 pg 10/08/2024 8:34 AM EDT [facility] MCHC 35.4 32.0 - 36.0 g/dL 10/08/2024 8:34 AM EDT [facility] RDW 17.2(H) 11.0 - 15.0 % 10/08/2024 8:34 AM EDT [facility] Platelets 37(L) 140 - 400 10E3/uL 10/08/2024 8:34 AM EDT [facility] Comment: Specimen checked for clots. None detected. Slide Reviewed for PLT Clumps. None Seen. _Platelet Morphology Normal _Platelets Appear Decreased MPV 8.7 7.5 - 11.5 fL 10/08/2024 8:34 AM EDT [facility] Whole Blood 10/08/2024 7:41 AM EDT 10/08/2024 7:52 AM EDT Narrative [facility] - 10/08/2024 8:34 AM EDT Post-transfusion Eileen Schroeder MD, PhD LAB BLOOD ORDERABLES Final Result [facility] [address] [facility] * Antibody Screen (10/08/2024 7:41 AM EDT) Antibody Screen Negative 10/08/2024 8:26 AM EDT [facility] Blood 10/08/2024 7:41 AM EDT 10/08/2024 7:57 AM EDT Narrative [facility] - 10/08/2024 8:32 AM EDT Testing performed by [facility] Transfusion Service Eileen Schroeder MD, PhD BLOOD BANK TEST ORDER PAL Final Result Performing Organization Address City/[facility]/ZIP Co de Phone Number [facility] [address] [facility] * ABO/Rh (10/08/2024 7:41 AM EDT) ABO Grouping O 10/08/2024 8:14 AM EDT [facility] Rh Type Positive 10/08/2024 8:14 AM EDT [facility] Blood 10/08/2024 7:41 AM EDT 10/08/2024 7:57 AM EDT Eileen Schroeder MD, PhD BLOOD BANK TEST ORDER PAL Final Result [facility] [address] * (ABNORMAL) Lactate dehydrogenase (10/08/2024 5:36 AM EDT) LD 102(L) 110 - 270 U/L 10/08/2024 8:20 AM EDT [facility] Plasma 10/08/2024 5:36 AM EDT 10/08/2024 7:58 AM EDT Angie Blanchard MD LAB BLOOD ORDERABLES Final Res ult [facility] [address] * (ABNORMAL) Protime-INR (10/08/2024 5:36 AM EDT) Pathologist [facility] Protime 26.9(H) 12.1 - 15.1 seconds 10/08/2024 6:11 AM EDT [facility] INR 2.4(H) 0.9 - 1.1 10/08/2024 6:11 AM EDT [facility] Comment: RECOMMENDED THERAPEUTIC RANGES USING INR : Stable oral anticoagulant therapy: 2.0 - 3.0 Mechanical prosthetic heart valve: 2.5 - 3.5 Recurrent acute myocardial infarction: 2.5 - 3.5 Plasma 10/08/2024 5:36 AM EDT 10/08/2024 5:52 AM EDT us Eileen Schroeder MD, PhD LAB BLOOD ORDERABLES Final Result [facility] [address] * (ABNORMAL) Hepatic Function Panel (10/08/2024 5:36 AM EDT) Total Bilirubin 7.7(H) 0.0 - 1.5 mg/dL 10/08/2024 6:25 AM EDT [facility] Bilirubin, Direct 4.28(H) 0.00 - 0.40 mg/dL 10/08/2024 6:25 AM EDT [facility] AST 34 13 - 39 U/L 10/08/2024 6:25 AM EDT [facility] ALT 16 7 - 52 U/L 10/08/2024 6:25 AM EDT [facility] Alkaline Phosphatase 103 36 - 125 U/L 10/08/2024 6:25 AM EDT [facility] Total Protein 4.7(L) 6.4 - 8.9 g/dL 10/08/2024 6:25 AM EDT [facility] Albumin 3.5 3.5 - 5.7 g/dL 10/08/2024 6:25 AM EDT [facility] Bilirubin, Indirect 3.42(H) 0.00 - 1.10 mg/dL 10/08/2024 6:25 AM EDT [facility] Plasma 10/08/2024 5:36 AM EDT 10/08/2024 5:52 AM EDT Eileen Schroeder MD, PhD LAB BLOOD ORDERABLES Final Result Performing Organization Address [facility]/ZIP Co de Phone Number [facility] [address] * Magnesium (10/08/2024 5:36 AM EDT) Magnesium 1.9 1.5 - 2.5 mg/dL 10/08/2024 6:25 AM EDT [facility] Plasma 10/08/2024 5:36 AM EDT 10/08/2024 5:52 AM EDT Eileen Schroeder MD, PhD LAB BLOOD ORDERABLES Final Result [facility] [address] * (ABNORMAL) Renal Function Panel w/EGFR (10/08/2024 5:36 AM EDT) Sodium 135 133 - 146 mmol/L 10/08/2024 6:25 AM EDT [facility] Potassium 3.2(L) 3.5 - 5.3 mmol/L 10/08/2024 6:25 AM EDT [facility] Chloride 106 98 - 110 mmol/L 10/08/2024 6:25 AM EDT [facility] CO2 17(L) 21 - 33 mmol/L 10/08/2024 6:25 AM EDT [facility] Anion Gap 12 3 - 16 mmol/L 10/08/2024 6:25 AM EDT [facility] BUN 61(H) 7 - 25 mg/dL 10/08/2024 6:25 AM EDT [facility] Creatinine 3.10(H) 0.60 - 1.30 mg/dL 10/08/2024 6:25 AM EDT [facility] Glucose 106(H) 70 - 100 mg/dL 10/08/2024 6:25 AM EDT [facility] Calcium 9.0 8.6 - 10.3 mg/dL 10/08/2024 6:25 AM EDT [facility] Phosphorus 4.0 2.1 - 4.7 mg/dL 10/08/2024 6:25 AM EDT [facility] Albumin 3.5 3.5 - 5.7 g/dL 10/08/2024 6:25 AM EDT [facility] Osmolality, Calculated 298 278 - 305 mOsm/kg [facility]24 [facility] 10/[facility] Comment:As of 2021, the estimated GFR [...] MD, PhD LAB BLOOD ORDERABLES Final Result [facility] [address] [place] [id number], [facility] * (ABNORMAL) CBC (10/08/2024 5:36 AM EDT) WBC 3.2(L) 3.8 - 10.8 10E3/uL 10/08/2024 6:41 AM EDT [facility] RBC 1.86(L) 4.20 - 5.80 10E6/uL 10/08/2024 6:41 AM EDT [facility] Hemoglobin 6.9(L) 13.2 - 17.1 g/dL 10/08/2024 6:41 AM EDT [facility] Hematocrit 18.9(L) 38.5 - 50.0 % 10/08/2024 6:41 AM EDT [facility] MCV 101.6(H) 80.0 - 100.0 fL 10/08/2024 6:41 AM EDT [facility] MCH 36.9(H) 27.0 - 33.0 pg 10/08/2024 6:41 AM EDT [facility] MCHC 36.3(H) 32.0 - 36.0 g/dL 10/08/2024 6:41 AM EDT [facility] RDW 17.0(H) 11.0 - 15.0 % 10/08/2024 6:41 AM EDT [facility] Platelets 34(L) 140 - 400 10E3/uL 10/08/2024 6:41 AM EDT [facility] Comment: Specimen checked for clots. None detected. Slide Reviewed for PLT Clumps. None Seen. Platelet Estimate Decreased 10/08/2024 6:41 AM EDT [facility] MPV 8.4 7.5 - 11.5 fL 10/08/2024 6:41 AM EDT [facility] Whole Blood 10/08/2024 5:36 AM EDT 10/08/2024 5:53 AM EDT Narrative [facility] - 10/08/2024 6:41 AM EDT Peripheral blood smear was scanned per review criteria approved by the laboratory director medical. us Eileen Schroeder MD, PhD LAB BLOOD ORDERABLES Final Result Performing Organization Address City/[facility]/ZIP Co de Phone Number [facility] [address] [facility] * Vancomycin, random (10/08/2024 5:36 AM EDT) Vancomycin Random 16.0 ug/mL 10/08/2024 6:20 AM EDT [facility] Comment:Reference range not established for this test. Plasma 10/08/2024 5:36 AM EDT 10/08/2024 5:52 AM EDT us Jodi FreireD LAB BLOOD ORDERABLES Final Result Performing Organization Address [facility] Co de Phone Number [facility] [address] [place] [facility]. [address] * Urine Drug Confirmation (10/07/2024 10:50 PM EDT) BARBITURATES NOT PRESENT 10/09/2024 1:33 PM EDT [facility] BENZODIAZEPINES PRESENT 1:33 PM EDT [facility] Nordiazepam 3 ng/mL 10/09/2024 1:33 PM EDT [facility] Temazepam 6 ng/mL 10/09/2024 1:33 PM EDT [facility] CANNABINOIDS NOT PRESENT 10/09/2024 1:33 PM EDT [facility] JUSTICE PROFESSOR STIMULANTS NOT PRESENT 1:33 PM EDT [facility] OPIOID ANALGESICS PRESENT 025 1:33 PM EDT [facility] Oxycodone 300 ng/mL 10/09/2024 1:33 PM EDT [facility] Oxymorphone 32 ng/mL 10/09/2024 1:33 PM EDT [facility] Tramadol >1000 ng/mL 10/09/2024 1:33 PM EDT [facility] OPIOID ANTAGONISTS NOT PRESENT 10/09 1:33 PM EDT [facility] SEDATIVES/MUSCLE RELAXANTS NOT PRESENT 10/09/2024 1:33 PM EDT [facility] TRICYCLIC ANTIDEPRESSANTS NOT PRESENT 10/09/2024 1:33 PM EDT [facility] Urine 10/07/2024 10:5 0 PM EDT 10/08/2024 3:00 AM EDT Gerri Peterson MD URINE ORDERABLES Final Result Performing Organization Address [facility] Co de Phone Number [facility] [address] [facility]. [address] * Giardia Cryptosporidium Antigens (10/07/2024 10:50 PM EDT) Cryptosporidium Ag Negative Negative 2024 7:59 AM EDT [facility] Giardia Ag Negative Negative 10/08/2024 7:59 AM EDT [facility] Comment: Detection of Giardia and Cryptosporidium antigen is more sensitive and specific than microscopy. Because antigens are shed continuously, repeat testing is rarely warranted. Feces 10/07/2024 10:5 0 PM EDT 10/08/2024 1:53 AM EDT Comment:F Bisi Hernandez DO MICROBIOLOGY - GENERAL ORDERABLE S Final Result Performing Organization Address [facility] de Phone Number [facility] [address] [facility]. [address] * (ABNORMAL) Urine Drug Screen Reflex to Confirmation (10/07/2024 10:50 PM EDT) Amphetamine, 500 ng/mL Cutoff Negative Negative 10/08/2024 3:00 AM EDT [facility] Barbiturates UR, 300 ng/mL Cutoff Negative Negative 10/08/2024 3:00 AM EDT [facility] Buprenorphine, 5 ng/mL Cutoff Negative Negative 10/08/2024 3:00 AM EDT [facility] Benzodiazepines UR, 300 ng/mL Cutoff Negative Negative 10/08/2024 3:00 AM EDT [facility] Cocaine UR, 300 ng/mL Cutoff Negative Negative 10/08/2024 3:00 AM EDT [facility] Methadone, UR, 300 ng/mL Cutoff Negative Negative 10/08/2024 3:00 AM EDT [facility] Opiates UR, 300 ng/mL Cutoff Negative Negative 10/08/2024 3:00 AM EDT [facility] Oxycodone, 100 ng/mL Cutoff Presumptive Positive(A) Negative 10/08/2024 3:00 AM EDT [facility] Tricyclic Antidepressants, 300 ng/mL Cutoff Negative Negative 10/08/2024 3:00 AM EDT [facility] Comment:This test has been d eveloped and its performance characteristics determined by [facility] which is certified under the [...] Cutoff Negative Negative 10/08/2024 3:00 AM EDT [facility] Comment:This is a screening method only and may be associated with false positive and/or false negative results. Results are not definitive without additional confirmatory testing by mass spectrometry. Fentanyl, 2 ng/mL Cutoff Negative Negative 10/08/2024 3:00 AM EDT [facility] Comment:This test has been d eveloped and its performance characteristics determined by [facility] which is certified under the [...] PM EDT 10/08/2024 2:08 AM EDT Narrative [facility] - 10/08/2024 3:00 AM EDT CONFIRMATION TO FOLLOW us Gerri Peterson MD URINE ORDERABLES Final Result [facility] [address], [place] [id number] [place] [address] * Comprehensive Drug Screen (10/07/2024 10:50 PM EDT) Creatinine, Ur CANCELED mg/dL 10/08/2024 7:09 AM EDT [facility] Comment:The released value 8 7.30 was canceled by YAQUELIN on 10/08/2024 07:09 BARBITURATES [facility] Butalbital CANCELED [facility] Phenobarbital [facility]ED [facility] Secobarbital [facility] BENZODIAZEPINES [facility]ED [facility] Alprazolam [facility]ELED [facility] Clonazepam [facility]ELED [facility] Diazepam [facility]ELED [facility] Alpha-Hydroxyalprazo mcknight [facility]ELED [facility] Lorazepam [facility]ELED [facility] Midazolam [facility]ELED [facility] Nordiazepam [facility]ED [facility] Oxazepam CANCELED [facility] Temazepam CANCELED [facility] CANNABINOIDS [facility] THC-COOH [facility]ED [facility] JUSTICE PROFESSOR STIMULANTS [facility]ED [facility] Cocaine Metabolite(benzoylec gonine) CANCELED [facility] Amphetamine [facility] Methamphetamine [facility]ED [facility] MDA [facility]ELED [facility] MDEA [facility]ED [facility] Phencyclindine (PCP) [facility]ELED [facility] OPIOID ANALGESICS [facility] Heroin Metabolite(6-RAMONA) CANCELED [facility] Codeine [facility]ELED [facility] Morphine [facility]ELED [facility] Hydrocodone [facility]ED [facility] Hydromorphone [facility]ED [facility] Oxycodone [facility]CELED [facility] Oxymorphone [facility]ED [facility] Meperidine [facility]ELED [facility] Normeperidine [facility]ED [facility] Methadone [facility]ELED [facility] Methadone Metabolite (EDDP) [facility]ELED [facility] Tramadol [facility] Fentanyl [facility] Norfentanyl [facility]ED [facility] Sufentanil [facility]CELED [facility] OPIOID ANTAGONISTS CANCELED [facility] Buprenorphine [facility] Norbuprenorphine [facility]ELED [facility] Naltrexone [facility] Naloxone [facility] SEDATIVES/MUSCLE RELAXANTS [facility] Carisoprodol [facility] Meprobamate [facility] TRICYCLIC ANTIDEPRESSANTS [facility] Amitriptyline [facility] Clomipramine [facility] Desipramine [facility] Doxepin [facility] Imipramine [facility] Nortriptyline [facility] Urine Creatinine CANCELED mg/dL [facility] Nitrite [facility]ED [facility] Glutaraldehyde [facility]ED [facility] pH CANCELED 10/08/2024 7:09 AM EDT [facility] Comment:The released value 5 .6 was canceled by YAQUELIN on 10/08/2024 07:09 Specific [place] CANCELED 10/09/19 7:09 AM EDT [facility] Comment:The released value 1 .009 was canceled by YAQUELIN on 10/08/2024 07:09 Bleach CANCELED [facility] Pyridinium Chlorochromate CANCELED [facility] Urine 10/07/2024 10:5 0 PM EDT 10/08/2024 2:07 AM EDT Narrative [facility] - 10/08/2024 7:09 AM EDT See accn [id number] Gerri Peterson MD URINE ORDERABLES Edited Result - Final [facility] [address] * Ova and Parasite Comprehensive w/ Giardia/Crypto (10/07/2024 10:50 PM EDT) O & P Method: Concentration and Trichrome Stain [facility] Results No Amoeba, Ova, Or Parasites Seen. -- O and P examination of additional specimens is recommended only for symptomatic patients, immunosuppressed patients or those with an appropriate travel history. [facility] Feces FECES / Unknown 10/07/2024 1 0:50 PM EDT 10/08/2024 1:53 AM EDT Comment:F Bisi Hernandez DO MICROBIOLOGY - GENERAL ORDERABLE S Final Result [facility] [address] [place] [address], [facility] * Enteric Pathogen Panel (10/07/2024 10:50 PM EDT) Campylobacter Group (C. ecoli, C. jejuni, C. trino) Not Detected Not Detected 10/08/2024 4:40 AM EDT [facility] Salmonella species Not Detected Not Detected 10/08/2024 4:40 AM EDT [facility] Shigella species Not Detected Not Detected 10/08/2024 4:40 AM EDT [facility] Vibrio Group (Vibrio cholerae, Vibrio parahaemolyticus) Not Detected Not Detected 10/08/2024 4:40 AM EDT [facility] Yersinia enterocolitica Not Detected Not Detected 10/08/2024 4:40 AM EDT [facility] Shiga toxin 1 Not Detected Not Detected 10/08/2024 4:40 AM EDT [facility] Shiga toxin 2 Not Detected Not Detected 10/08/2024 4:40 AM EDT [facility] Norovirus Not Detected Not Detected 10/08/2024 4:40 AM EDT [facility] Rotavirus Not Detected Not Detected 10/08/2024 4:40 AM EDT [facility] Comment: The Enteric Pathogen Panel is [...] ORDERABLE S Final Result Performing Organization Address City/[facility] Co de Phone Number [facility] [address] * Hepatitis C Antibody (10/07/2024 6:38 PM EDT) HCV Ab Nonreactive Nonreactive 10/07/2024 7:56 PM EDT [facility] Comment:Health Department no tified in accordance with reportable infectious disease guidelines. Serum 10/07/2024 6:38 PM EDT 10/07/2024 6:52 PM EDT [facility] - 10/07/2024 7:56 PM EDT Antibodies to HCV not detected; does not exclude the possibility of exposure to HCV. Gerri Peterson MD LAB BLOOD ORDERABLES Final Resu lt Performing Organization Address [facility] Co de Phone Number [facility] [address] [facility] * Hepatitis B Surface Antibody, Quantitati (10/07/2024 6:38 PM EDT) Hep B S Ab Nonreactive Nonreactive 10/07/2024 8:00 PM EDT [facility] HBSAB NUMBER 7.88 0.00 - 7.99 mIU/mL 10/07/2024 8:00 PM EDT [facility] Serum 10/07/2024 6:38 PM EDT 10/07/2024 6:52 PM EDT Narrative [facility] - 10/07/2024 8:00 PM EDT Individual is considered not immune to HBV infection. Gerri Peterson MD LAB BLOOD ORDERABLES Final Resu lt Performing Organization Address City/[facility]/ZIP Co de Phone Number [facility] [address] [facility] * Hepatitis B surface antigen (10/07/2024 6:38 PM EDT) Hep B Surface Ag Nonreactive Nonreactive 10/07/2024 7:51 PM EDT [facility] Comment:Health Department no tified in accordance with reportable infectious disease guidelines. Serum 10/07/2024 6:38 PM EDT 10/07/2024 6:52 PM EDT [facility] - 10/07/2024 7:51 PM EDT Specimen is considered negative for HBsAg. Gerri Peterson MD LAB BLOOD ORDERABLES Final Resu lt Performing Organization Address City/[facility]/ZIP Co de Phone Number [facility] [address] [facility]. [address] * Hepatitis A Antibody Total (10/07/2024 6:38 PM EDT) Anti-HAV Total (IgG + IgM) Nonreactive 10/07/2024 7:53 PM EDT [facility] Serum 10/07/2024 6:38 PM EDT 10/07/2024 6:52 PM EDT [facility] - 10/07/2024 7:53 PM EDT HAV antibodies not detected Gerri Peterson MD LAB BLOOD ORDERABLES Final Resu lt Performing Organization Address [facility] Co de Phone Number [facility] [address] [facility]. [address] * Hepatitis A IgM (10/07/2024 6:38 PM EDT) Hep A IgM Nonreactive Nonreactive 10/07/2024 7:46 PM EDT [facility] Serum 10/07/2024 6:38 PM EDT 10/07/2024 6:52 PM EDT [facility] - 10/07/2024 7:46 PM EDT IgM anti-HAV not detected. Does not exclude the possibility of exposure to or infection with HAV. Levels of IgM anti-HAV may be below the cut-off in early infection. Gerri Peterson MD LAB BLOOD ORDERABLES Final Resu lt Performing Organization Address City/[facility]/ZIP Co de Phone Number [facility] [address] [facility]. [address] * (ABNORMAL) Lipid Profile (10/07/2024 6:37 PM EDT) Non-HDL Cholesterol, Calculated See Note 0 - 129 mg/dL 10/07/2024 7:42 PM EDT [facility] Comment: Desirable: < 130 mg/dL Above Desirable: 130-159 mg/dL Borderline High: 160-189 mg/dL High: 190-219 mg/dL Very High: > 219 mg/dL Unable to calculate result either because contributing result(s) are outside of reportable range or are not available. Cholesterol, Total <25 0 - 200 mg/dL 10/07/2024 7:42 PM EDT [facility] Triglycerides 30 10 - 149 mg/dL 10/07/2024 7:42 PM EDT [facility] HDL 4(L) 60 - 92 mg/dL 10/07/2024 7:42 PM EDT [facility] Comment: LIPID PROFILE INTERPRETATION CHOLESTEROL,TOTAL(mg/dL) DESIRABLE: [...] Cholesterol See Note mg/dL 7:42 PM EDT [facility] Comment:Unable to calculate result either because contributing result(s) are outside of reportable range or are not available. Plasma 10/07/2024 6:37 PM EDT 10/07/2024 7:06 PM EDT [facility]arrative [facility] - 10/07/2024 7:42 PM EDT LDL cholesterol calculated using the Friedewald equation. us Gerri Peterson MD LAB BLOOD ORDERABLES Final Resu lt [facility] [address] [address], [facility] * (ABNORMAL) Alpha 1 Antitrypsin AAT Quant & Mutation (10/07/2024 6:37 PM EDT) A-1 Antitrypsin 99(L) 101 - 187 mg/dL 10/09/2024 4:28 AM EDT [facility] A-1 Antitrypsin Pheno Comment 10/10/2024 4:05 PM EDT [facility] Comment: A1A Phenotype is consistent with a heterozygous phenotype consisting of one M (normal) allele and one allele that cannot be identified at this time. The unknown allele is not consistent with Z (deficient), S (deficient), or F (deficient). MM Phenotype is considered to be normal , producing normal serum levels of [id number] inhibitor and not associated with clinical disease. [...] - 10/10/2024 4:08 PM EDT PERFORMED AT: [facility] [id number] SCALES INSPECTOR: Bassam Khalil, PhD PHONE: [phone] PERFORMED AT: [facility] [id number] SCALES INSPECTOR: Mandy Abdul MD PHONE: [phone] Gerri Peterson MD LAB BLOOD ORDERABLES Final Resu lt [facility] [address] [facility]. [address] * (ABNORMAL) CMV IgG Antibody (10/07/2024 6:37 PM EDT) Pathologist [facility] CMV IgG Positive(A ) Negative 10/07/2024 8:26 PM EDT [facility] CMV IGG NUM 8.40(H) 0.00 - 0.59 U/mL 10/07/2024 8:26 PM EDT [facility] Serum 10/07/2024 6:37 PM EDT 10/07/2024 6:50 PM EDT Gerri Peterson MD LAB BLOOD ORDERABLES Final Resu lt Performing Organization Address City/[facility]/ZIP Co de Phone Number [facility] [address] [facility]. [address] * HIV-1 and HIV-2 Antibodies w Reflex (10/07/2024 6:37 PM EDT) Pathologist [facility] HIV 1+2 AB/AGN Nonreactive Nonreactive 10/07/2024 7:54 PM EDT [facility] Serum 10/07/2024 6:37 PM EDT 10/07/2024 7:06 PM EDT Narrative [facility] - 10/07/2024 7:54 PM EDT \HIVRNR Gerri Peterson MD LAB BLOOD ORDERABLES Final Resu lt [facility] [address] [facility]. [address] * TSH (Thyroid Stimulating Hormone) (10/07/2024 6:37 PM EDT) Pathologist [facility] TSH 0.81 0.45 - 4.12 uIU/mL 10/07/2024 8:17 PM EDT [facility] Serum 10/07/2024 6:37 PM EDT 10/07/2024 6:50 PM EDT Gerri Peterson MD LAB BLOOD ORDERABLES Final Resu lt Performing Organization Address [facility] Co de Phone Number [facility] [address] [place] [address] * Katie-Watkins virus early antigen antibody, IgG (10/07/2024 6:37 PM EDT) Pathologist [facility] EBV Early Antigen Ab, IgG <9.0 0.0 - 8.9 U/mL 10/09/2024 2:16 PM EDT [facility] Comment: Negative < 9.0 Equivocal 9.0 - 10.9 Positive >10.9 Serum Frozen 10/07/2024 6:37 PM EDT 10/09/2024 3:07 PM EDT Narrative [facility] - 10/09/2024 3:07 PM EDT PERFORMED AT: [facility] [id number] SCALES INSPECTOR: Bassam Khalil, PhD PHONE: [phone] Gerri Peterson MD LAB BLOOD ORDERABLES Final Resu lt Performing Organization Address [facility] de Phone Number [facility] [address] [place] [address] * (ABNORMAL) Varicella zoster antibody, IgG (10/07/2024 6:37 PM EDT) Pathologist [facility] Varicella IgG Positive( A) Negative S/CO 10/07/2024 8:34 PM EDT [facility] Comment:Result indicates the presence of detectable VZV IgG antibodies. A positive result is generally indicative of exposure to the pathogen or administration of specific immunoglobulins, but it is no indication of active infection or stage of disease. This test is not approved for determining vaccine-induced immunity to varicella zoster virus. VZV NUM 6.76(H) 0.00 - 0.99 S/CO 10/07/2024 8:34 PM EDT [facility] Serum 10/07/2024 6:37 PM EDT 10/07/2024 6:50 PM EDT Gerri Peterson MD LAB BLOOD ORDERABLES Final Resu lt Performing Organization Address [facility] de Phone Number [facility] [address] [place] [address]. [address] * Toxoplasma gondii antibody, IgG (10/07/2024 6:37 PM EDT) Toxoplasma Gondii IgG <3.0 0.0 - 7.1 IU/mL 10/09/2024 7:53 AM EDT [facility] Comment: Negative <7.2 Equivocal 7.2 - 8.7 Positive >8.7 Serum 10/07/2024 6:37 PM EDT 10/09/2024 8:07 AM EDT Narrative [facility] - 10/09/2024 8:07 AM EDT PERFORMED AT: [facility] [id number] SCALES INSPECTOR: Bassam Khalil, PhD PHONE: [phone] Gerri Peterson MD LAB BLOOD ORDERABLES Final Resu lt Performing Organization Address [facility] de Phone Number [facility] [address] [place] [address]. [address] * Syphilis Screening (Trepia) (10/07/2024 6:37 PM EDT) Treponema Pallidum Negative Negative 10/07/2024 8:27 PM EDT [facility] Comment: No serological evidence of infection with Treponema pallidum (incubating or early primary syphilis cannot be excluded). Serum 10/07/2024 6:37 PM EDT 10/07/2024 6:50 PM EDT Gerri Peterson MD LAB BLOOD ORDERABLES Final Resu lt [facility] [address] [facility] * Strongyloides Ab (10/07/2024 6:37 PM EDT) Strongyloides Ab Negative Negative 10/11/19 11:51 AM EDT [facility] Serum 10/07/2024 6:37 PM EDT 10/10/2024 12:07 PM EDT [facility]arrative [facility] - 10/10/2024 12:07 PM EDT PERFORMED AT: [facility] [id number] SCALES INSPECTOR: Mandy Abdul MD PHONE: [phone] us Gerri Peterson MD LAB BLOOD ORDERABLES Final Resu lt Performing Organization Address City/[facility]/ZIP Co de Phone Number [facility] [address] [facility]. [address] * Phosphatidylethanol Confirmation, B (10/07/2024 6:37 PM EDT) PETH 16:0/18.1 (POPETH) <10 Cutoff: 10 ng/mL 10/10/2024 10:42 AM EDT [facility] Comment: Phosphatidylethanol (PEth) homologues result interpretation [...] Cutoff: 10 ng/mL 10/10/2024 10:42 AM EDT [facility] Comment: PEth 16:0/18:2 (PLPEth) Reference ranges are not well established PEth Interpretation Negative. 10/10 10:42 AM EDT [facility] Comment: ADDITIONAL INFORMATION This report is [...] Food and Drug Administration. Test Performed by: [facility] [address] [place] [address] Drywall Stripper: Kathy Ortiz Ph.D.; CLIA# [id number] Whole Blood 10/07/2024 6:37 PM EDT 10/10/2024 10:42 AM EDT us Gerri Peterson MD LAB BLOOD ORDERABLES Final Resu lt [facility] [address] * (ABNORMAL) MMR(IgG) Panel (Measles, Mumps, Rubella) (10/07/2024 6:37 PM EDT) Mumps IgG Positive 10/07/2024 8:26 PM EDT [facility] MUMPS IGG NUM 77.80(H) 0.0 - 8.9 U/mL 10/07/2024 8:26 PM EDT [facility] Rubella IgG Scr Positive 10/07/2024 8:28 PM EDT [facility] RUB NUM 3.04(H) 0.00 - 0.89 INDEX 10/07/2024 8:28 PM EDT [facility] Rubeola Ab, IgG Positive 10/07/2024 8:26 PM EDT [facility] RUB IGG NUM 192.00(H) 0.00 - 13.40 U/mL 10/07/2024 8:26 PM EDT [facility] Serum 10/07/2024 6:37 PM EDT 10/07/2024 6:50 PM EDT Narrative [facility] - 10/07/2024 8:28 PM EDT Presence [...] ORDERABLES Final Resu lt Performing Organization Address [facility] Co de Phone Number [facility] [address] [place] [address]. [address] * IgA (10/07/2024 6:37 PM EDT) IgA 227.0 70.0 - 400.0 mg/dL 10/08/2024 11:07 AM EDT [facility] Comment:Please interpret the se findings in conjunction with clinical findings, protein electrophoresis, and immunotyping/immunofixation results. Serum 10/07/2024 6:37 PM EDT 10/07/2024 6:50 PM EDT Result [facility] Gerri Peterson MD LAB BLOOD ORDERABLES Final Resu lt Performing Organization Address [facility] Co de Phone Number [facility] [address] [place] [address]. [address] * Ethanol, Serum (10/07/2024 6:37 PM EDT) Ethanol <10 0 - 10 mg/dL 10/07/2024 8:36 PM EDT [facility] Serum 10/07/2024 6:37 PM EDT 10/07/2024 6:50 PM EDT Result [facility] Gerri Peterson MD LAB BLOOD ORDERABLES Final Resu lt Performing Organization Address [facility] Co de Phone Number [facility] [address] [place] [address]. [address] * ABO/Rh - Second (10/07/2024 6:37 PM EDT) ABO Grouping O 10/07/2024 7:16 PM EDT [facility] Rh Type Positive 10/07/2024 7:16 PM EDT [facility] Blood 10/07/2024 6:37 PM EDT 10/07/2024 6:56 PM EDT [facility]arrative [facility] - 10/07/2024 7:18 PM EDT This is not a duplicate order. It is required that ABO be drawn twice for LIVER TRANSPLANT Gerri Peterson MD BLOOD BANK TEST ORDERABLES Denisse l Result Performing Organization Address City/[facility]/ZIP Co de Phone Number [facility] [address] * ABO/Rh- Initial (10/07/2024 6:37 PM EDT) ABO Grouping O 10/07/2024 7:59 PM EDT [facility] Rh Type Positive 10/07/2024 7:59 PM EDT [facility] Blood 10/07/2024 6:37 PM EDT 10/07/2024 7:25 PM EDT Gerri Peterson MD BLOOD BANK TEST ORDERABLES Denisse l Result Performing Organization Address City/[facility] Co de Phone Number [facility] [address] [facility]. [address] * X-ray Mandible minimum 4-views (10/07/2024 [...] EXAM: US ABDOMEN COMPLETE EXAM: US DUPLEX [id number] COMPLETE INDICATION: elevated bilirubin COMPARISON: Ultrasound and [...] EXAM: US ABDOMEN COMPLETE EXAM: US DUPLEX [id number] COMPLETE INDICATION: elevated bilirubin COMPARISON: Ultrasound and [...] 4:26 PM EDT us Bisi Hernandez DO [facility] US ORDERABLES Final Result * US Duplex [id number] Comp (10/07/2024 3:48 PM EDT) Anatomical Region [...] EXAM: US ABDOMEN COMPLETE EXAM: US DUPLEX [id number] COMPLETE INDICATION: elevated bilirubin COMPARISON: Ultrasound and [...] EXAM: US ABDOMEN COMPLETE EXAM: US DUPLEX [id number] COMPLETE INDICATION: elevated bilirubin COMPARISON: Ultrasound and [...] 0.9 - 1.1 10/07/2024 6:55 AM EDT [facility] Comment: RECOMMENDED THERAPEUTIC RANGES USING INR : Stable oral anticoagulant therapy: 2.0 - 3.0 Mechanical prosthetic heart valve: 2.5 - 3.5 Recurrent acute myocardial infarction: 2.5 - 3.5 Plasma 10/07/2024 6:00 AM EDT 10/07/2024 6:39 AM EDT us Eileen Schroeder MD, PhD LAB BLOOD ORDERABLES Final Result [facility] [address] * (ABNORMAL) Hepatic Function Panel (10/07/2024 6:00 AM EDT) Total Bilirubin 9.7(H) 0.0 - 1.5 mg/dL 10/07/2024 7:10 AM EDT [facility] Bilirubin, Direct 5.21(H) 0.00 - 0.40 mg/dL 10/07/2024 7:10 AM EDT [facility] AST 39 13 - 39 U/L 10/07/2024 7:10 AM EDT [facility] ALT 18 7 - 52 U/L 10/07/2024 7:10 AM EDT [facility] Alkaline Phosphatase 98 36 - 125 U/L 10/07/2024 7:10 AM EDT [facility] Total Protein 4.8(L) 6.4 - 8.9 g/dL 10/07/2024 7:10 AM EDT [facility] Albumin 3.6 3.5 - 5.7 g/dL 10/07/2024 7:10 AM EDT [facility] Bilirubin, Indirect 4.49(H) 0.00 - 1.10 mg/dL 10/07/2024 7:10 AM EDT [facility] Plasma 10/07/2024 6:00 AM EDT 10/07/2024 6:39 AM EDT us Eileen Schroeder MD, PhD LAB BLOOD ORDERABLES Final Result Performing Organization Address City/[facility]/ZIP Co de Phone Number [facility] [address] * Magnesium (10/07/2024 6:00 AM EDT) Magnesium 1.7 1.5 - 2.5 mg/dL 10/07/2024 7:10 AM EDT [facility] Plasma 10/07/2024 6:00 AM EDT 10/07/2024 6:39 AM EDT Eileen Schroeder MD, PhD LAB BLOOD ORDERABLES Final Result [facility] [address] [place] [address], [facility] * (ABNORMAL) Renal Function Panel w/EGFR (10/07/2024 6:00 AM EDT) Sodium 132(L) 133 - 146 mmol/L 10/07/2024 7:10 AM EDT [facility] Potassium 3.9 3.5 - 5.3 mmol/L 10/07/2024 7:10 AM EDT [facility] Chloride 103 98 - 110 mmol/L 10/07/2024 7:10 AM EDT [facility] CO2 19(L) 21 - 33 mmol/L 10/07/2024 7:10 AM EDT [facility] Anion Gap 10 3 - 16 mmol/L 10/07/2024 7:10 AM EDT [facility] BUN 64(H) 7 - 25 mg/dL 10/07/2024 7:10 AM EDT [facility] Creatinine 3.38(H) 0.60 - 1.30 mg/dL 10/07/2024 7:10 AM EDT [facility] Glucose 111(H) 70 - 100 mg/dL 10/07/2024 7:10 AM EDT [facility] Calcium 9.1 8.6 - 10.3 mg/dL 10/07/2024 7:10 AM EDT [facility] Phosphorus 4.2 2.1 - 4.7 mg/dL 10/07/2024 7:10 AM EDT [facility] Albumin 3.6 3.5 - 5.7 g/dL 10/07/2024 7:10 AM EDT [facility] Osmolality, Calculated 293 278 - 305 mOsm/kg 10/07/2024 7:10 AM EDT [facility] EGFR 22 10/07/2024 7:10 AM EDT [facility] Comment:As of 2021, the estimated GFR [...] reported as >90mL/min/1.73m2. Reference: Luis Eduardo C, Tlaia M, Olivia DC, Emerita ND, Madelyn [place], Felicia [place], et al. A Unifying Approach for GFR Estimation: Recommendations of the NKF-ASN Task Force on Reassessing the inclusion of Race in Diagnosing Kidney Disease. Am J Kidney Dis. 2020. Plasma 10/07/2024 6:00 AM EDT 10/07/2024 6:39 AM EDT us Eileen Schroeder MD, PhD LAB BLOOD ORDERABLES Final Result [facility] [address] [place] [address], [facility] * (ABNORMAL) CBC (10/07/2024 6:00 AM EDT) WBC 3.3(L) 3.8 - 10.8 10E3/uL 10/07/2024 7:55 AM EDT [facility] RBC 2.06(L) 4.20 - 5.80 10E6/uL 10/07/2024 7:55 AM EDT [facility] Hemoglobin 7.4(L) 13.2 - 17.1 g/dL 10/07/2024 7:55 AM EDT [facility] Hematocrit 21.5(L) 38.5 - 50.0 % 10/07/2024 7:55 AM EDT [facility] MCV 104.1(H) 80.0 - 100.0 fL 10/07/2024 7:55 AM EDT [facility] MCH 35.8(H) 27.0 - 33.0 pg 10/07/2024 7:55 AM EDT [facility] MCHC 34.4 32.0 - 36.0 g/dL 10/07/2024 7:55 AM EDT [facility] RDW 17.5(H) 11.0 - 15.0 % 10/07/2024 7:55 AM EDT [facility] Platelets 35(L) 140 - 400 10E3/uL 10/07/2024 7:55 AM EDT [facility] Comment: Specimen checked for clots. None detected. Slide Reviewed for PLT Clumps. None Seen. _Platelet Morphology Normal _Platelets Appear Decreased Platelet Estimate Decreased 10/07/2024 7:55 AM EDT [facility] MPV 8.0 7.5 - 11.5 fL 10/07/2024 7:55 AM EDT [facility] Whole Blood 10/07/2024 6:00 AM EDT 10/07/2024 6:40 AM EDT [facility] - 10/07/2024 7:55 AM EDT Peripheral blood smear was scanned per review criteria approved by the laboratory director medical. Eileen Schroeder MD, PhD LAB BLOOD ORDERABLES Final Result Performing Organization Address [facility] Co de Phone Number [facility] [address] [facility] * AFP Tumor Marker (10/07/2024 6:00 AM EDT) [facility] AFP-Tumor Marker 2.0 0.0 - 9.0 ng/mL 10/07/2024 7:11 AM EDT [facility] Serum 10/07/2024 6:00 AM EDT 10/07/2024 6:39 AM EDT [facility] - 10/07/2024 7:11 AM EDT The testing method for AFP is a chemiluminescent immunoassay manufactured by [employer] Concentrations of AFP obtained by different assay methods or kits may vary and cannot be used interchangeably. AFP results cannot be interpreted as absolute evidence of the presence or absence of malignant disease. Shila Rivera MD LAB BLOOD ORDERABLES Final Resul t Performing Organization Address [facility]/ZIP Co de Phone Number [facility] [address] [facility] * Vancomycin, random (10/07/2024 6:00 AM EDT) Pathologist [facility] Vancomycin Random 21.1 ug/mL 10/07/2024 7:08 AM EDT [facility] Comment:Reference range not established for this test. Plasma 10/07/2024 6:00 AM EDT 10/07/2024 6:39 AM EDT Kiet Gardiner PharmD LAB BLOOD ORDERABLES Final Re sult [facility] [address] * Osmolality (10/06/2024 2:50 PM EDT) Osmolality, Measured 304 278 - 305 mOsm/kg 10/06/2024 3:49 PM EDT [facility] Serum 10/06/2024 2:50 PM EDT 10/06/2024 2:56 PM EDT Chari Vanegas MD LAB BLOOD ORDERABLES Final Resul t Performing Organization Address [facility] Co de Phone Number [facility] [address] * CT Head WO contrast (10/06/2024 [...] Schroeder MD, PhD IMG CT ORDERABLES [facility] Result * Chloride, urine, random (10/06/2024 1:25 PM EDT) Chloride, Ur <15 mmol/L 10/06/2024 1:56 PM EDT [facility] Comment:Reference range not established for this test. Urine 10/06/2024 1:25 PM EDT 10/06/2024 1:32 PM EDT Chari Vanegas MD URINE ORDERABLES Final Result [facility] [address] * Potassium, urine, random (10/06/2024 1:25 PM EDT) Potassium Urine Random 50.0 mmol/L 10/06/2024 1:56 PM EDT [facility] Comment:Reference range not established for this test. Urine 10/06/2024 1:25 PM EDT 10/06/2024 1:32 PM EDT us Chari Vanegas MD URINE ORDERABLES Final Result Performing Organization Address [facility] Co de Phone Number [facility] [address] * Sodium, urine, random (10/06/2024 1:25 PM EDT) Sodium, Ur <10 mmol/L 10/06/2024 1:56 PM EDT [facility] Comment:Reference range not established for this test. Urine 10/06/2024 1:25 PM EDT 10/06/2024 1:32 PM EDT us Chari Vanegas MD URINE ORDERABLES Final Result Performing Organization Address [facility] Co de Phone Number [facility] [address] * Creatinine, Urine, Random (10/06/2024 1:25 PM EDT) Creatinine, Urine 87.40 mg/dL 10/06/2024 1:56 PM EDT [facility] Comment:Reference range not established for this test. Urine 10/06/2024 1:25 PM EDT 10/06/2024 1:32 PM EDT us Chari Vanegas MD URINE ORDERABLES Final Result Performing Organization Address [facility] Co de Phone Number [facility] [address] * Osmolality, Urine (10/06/2024 1:25 PM EDT) Osmolality, Ur 386 50 - 1,200 mOsm/kg 10/06/2024 1:55 PM EDT [facility] Urine 10/06/2024 1:25 PM EDT 10/06/2024 1:32 PM EDT us Chari Vanegas MD URINE ORDERABLES Final Result Performing Organization Address [facility] Co de Phone Number [facility] [address] [place] [id number] * Urine Drug Confirmation (10/06/2024 11:51 AM EDT) BARBITURATES NOT PRESENT 10/09/2024 3:23 PM EDT [facility] Comment:Results were recheck ed. BENZODIAZEPINES PRESENT 3:23 PM EDT [facility] Nordiazepam 3 ng/mL 10/09/2024 3:23 PM EDT [facility] Comment:Results were recheck ed. Temazepam 8 ng/mL 10/09/2024 3:23 PM EDT [facility] Comment:Results were recheck ed. CANNABINOIDS NOT PRESENT 10/09/2024 3:23 PM EDT [facility] JUSTICE PROFESSOR STIMULANTS NOT PRESENT 3:23 PM EDT [facility] OPIOID ANALGESICS PRESENT 025 3:23 PM EDT [facility] Oxycodone 329 ng/mL 10/09/2024 3:23 PM EDT [facility] Oxymorphone 61 ng/mL 10/09/2024 3:23 PM EDT [facility] Tramadol >1000 ng/mL 10/09/2024 3:23 PM EDT [facility] OPIOID ANTAGONISTS NOT PRESENT 10/09 3:23 PM EDT [facility] SEDATIVES/MUSCLE RELAXANTS NOT PRESENT 10/09/2024 3:23 PM EDT [facility] TRICYCLIC ANTIDEPRESSANTS NOT PRESENT 10/09/2024 3:23 PM EDT [facility] Urine 10/06/2024 11:5 1 AM EDT 10/06/2024 1:13 PM EDT us Bisi Hernandez DO URINE ORDERABLES Final Result [facility] [address] * (ABNORMAL) Urine Drug Screen Reflex to Confirmation (10/06/2024 11:51 AM EDT) Amphetamine, 500 ng/mL Cutoff Negative Negative 10/06/2024 1:13 PM EDT [facility] Barbiturates UR, 300 ng/mL Cutoff Negative Negative 10/06/2024 1:13 PM EDT [facility] Buprenorphine, 5 ng/mL Cutoff Negative Negative 10/06/2024 1:13 PM EDT [facility] Benzodiazepines UR, 300 ng/mL Cutoff Negative Negative 10/06/2024 1:13 PM EDT [facility] Cocaine UR, 300 ng/mL Cutoff Negative Negative 10/06/2024 1:13 PM EDT [facility] Methadone, UR, 300 ng/mL Cutoff Negative Negative 10/06/2024 1:13 PM EDT [facility] Opiates UR, 300 ng/mL Cutoff Negative Negative 10/06/2024 1:13 PM EDT [facility] Oxycodone, 100 ng/mL Cutoff Presumptive Positive(A) Negative 10/06/2024 1:13 PM EDT [facility] Tricyclic Antidepressants, 300 ng/mL Cutoff Negative Negative 10/06/2024 1:13 PM EDT [facility] Comment:This test has been d eveloped and its performance characteristics determined by [facility] which is certified under the [...] Cutoff Negative Negative 10/06/2024 1:13 PM EDT [facility] Comment:This is a screening method only and may be associated with false positive and/or false negative results. Results are not definitive without additional confirmatory testing by mass spectrometry. Fentanyl, 2 ng/mL Cutoff Negative Negative 10/06/2024 1:13 PM EDT [facility] Comment:This test has been d eveloped and its performance characteristics determined by [facility] which is certified under the [...] AM EDT 10/06/2024 11:58 AM EDT Narrative [facility] - 10/06/2024 1:13 PM EDT CONFIRMATION TO FOLLOW us Bisi Hernandez DO URINE ORDERABLES Final Result Performing Organization Address [facility] Co de Phone Number [facility] [address] * Chloride, urine, random (10/06/2024 11:51 AM EDT) Chloride, Ur <15 mmol/L 10/06/2024 1:13 PM EDT [facility] Comment:Reference range not established for this test. Urine 10/06/2024 11:5 1 AM EDT 10/06/2024 11:57 AM EDT Bisi Hernandez DO URINE ORDERABLES Final Result Performing Organization Address [facility] Co de Phone Number [facility] [address] * Potassium, urine, random (10/06/2024 11:51 AM EDT) Potassium Urine Random 49.0 mmol/L 10/06/2024 1:13 PM EDT [facility] Comment:Reference range not established for this test. Urine 10/06/2024 11:5 1 AM EDT 10/06/2024 11:57 AM EDT us Bisi Hernandez DO URINE ORDERABLES Final Result Performing Organization Address [facility] Co de Phone Number [facility] [address] * Sodium, urine, random (10/06/2024 11:51 AM EDT) Sodium, Ur <10 mmol/L 10/06/2024 1:13 PM EDT [facility] Comment:Reference range not established for this test. Urine 10/06/2024 11:5 1 AM EDT 10/06/2024 11:57 AM EDT us Bisi Hernandez DO URINE ORDERABLES Final Result [facility] [address] * Urinalysis w/Rfl to Microscopic (10/06/2024 11:51 AM EDT) Color, UA Yellow Yellow,Straw 10/06/2024 12:25 PM EDT [facility] Clarity, UA Clear Clear 10/06/2024 12:25 PM EDT [facility] Specific [place], UA 1.014 1.005 - 1.035 10/06/2024 12:25 PM EDT [facility] pH, UA 6.0 5.0 - 8.0 10/06/2024 12:25 PM EDT [facility] Protein, UA Negative Negative mg/dL 10/06/2024 12:25 PM EDT [facility] Glucose, UA Negative Negative mg/dL 10/06/2024 12:25 PM EDT [facility] Ketones, UA Negative Negative mg/dL 10/06/2024 12:25 PM EDT [facility] Bilirubin, UA Negative Negative 10/06/2024 12:25 PM EDT [facility] Blood, UA Negative Negative 10/06/2024 12:25 PM EDT [facility] Nitrite, UA Negative Negative 10/06/2024 12:25 PM EDT [facility] Urobilinogen, UA <2.0 0.2 - 1.9 mg/dL 10/06/2024 12:25 PM EDT [facility] Leukocyte Esterase, UA Negative Negative 10/06/2024 12:25 PM EDT [facility] Urine 10/06/2024 11:5 1 AM EDT 10/06/2024 11:57 AM EDT Narrative [facility] - 10/06/2024 12:25 PM EDT Microscopic testing is not performed when the dipstick is negative for blood, leukocyte, protein and nitrite. us Bisi Mary DO URINE ORDERABLES Final Result [facility] [address] * Lactic Acid, STAT (10/06/2024 7:38 AM EDT) Lactate 0.9 0.5 - 2.2 mmol/L 10/06/2024 8:05 AM EDT [facility] Plasma 10/06/2024 7:38 AM EDT 10/06/2024 7:42 AM EDT Chari Vanegas MD LAB BLOOD ORDERABLES Final Resul t [facility] [address] * (ABNORMAL) CBC, STAT (10/06/2024 7:37 AM EDT) WBC 5.6 3.8 - 10.8 10E3/uL 10/06/2024 8:22 AM EDT [facility] RBC 2.50(L) 4.20 - 5.80 10E6/uL 10/06/2024 8:22 AM EDT [facility] Hemoglobin 9.0(L) 13.2 - 17.1 g/dL 10/06/2024 8:22 AM EDT [facility] Hematocrit 25.3(L) 38.5 - 50.0 % 10/06/2024 8:22 AM EDT [facility] MCV 101.2(H) 80.0 - 100.0 fL 10/06/2024 8:22 AM EDT [facility] MCH 36.0(H) 27.0 - 33.0 pg 10/06/2024 8:22 AM EDT [facility] MCHC 35.6 32.0 - 36.0 g/dL 10/06/2024 8:22 AM EDT [facility] RDW 17.7(H) 11.0 - 15.0 % 10/06/2024 8:22 AM EDT [facility] Platelets 52(L) 140 - 400 10E3/uL 10/06/2024 8:22 AM EDT [facility] Comment: Specimen checked for clots. None detected. Slide Reviewed for PLT Clumps. None Seen. MPV 8.2 7.5 - 11.5 fL 10/06/2024 8:22 AM EDT [facility] Whole Blood 10/06/2024 7:37 AM EDT 10/06/2024 7:43 AM EDT us Chari Vanegas MD LAB BLOOD ORDERABLES Final Resul t [facility] [address] [place] [id number] * (ABNORMAL) Comprehensive Metabolic Panel (10/06/2024 7:37 AM EDT) Sodium 129(L) 133 - 146 mmol/L 10/06/2024 8:16 AM EDT [facility] Potassium 4.4 3.5 - 5.3 mmol/L 10/06/2024 8:16 AM EDT [facility] Chloride 100 98 - 110 mmol/L 10/06/2024 8:16 AM EDT [facility] CO2 18(L) 21 - 33 mmol/L 10/06/2024 8:16 AM EDT [facility] Anion Gap 11 3 - 16 mmol/L 10/06/2024 8:16 AM EDT [facility] BUN 62(H) 7 - 25 mg/dL 10/06/2024 8:16 AM EDT [facility] Creatinine 3.40(H) 0.60 - 1.30 mg/dL 10/06/2024 8:16 AM EDT [facility] Glucose 98 70 - 100 mg/dL 10/06/2024 8:16 AM EDT [facility] Calcium 9.5 8.6 - 10.3 mg/dL 10/06/2024 8:16 AM EDT [facility] Total Bilirubin 14.3(H) 0.0 - 1.5 mg/dL 10/06/2024 8:16 AM EDT [facility] AST 57(H) 13 - 39 U/L 10/06/2024 8:16 AM EDT [facility] ALT 29 7 - 52 U/L 10/06/2024 8:16 AM EDT [facility] Alkaline Phosphatase 158(H) 36 - 125 U/L 10/06/2024 8:16 AM EDT [facility] Total Protein 5.6(L) 6.4 - 8.9 g/dL 10/06/2024 8:16 AM EDT [facility] Albumin 3.6 3.5 - 5.7 g/dL 10/06/2024 8:16 AM EDT [facility] Osmolality, Calculated 286 278 - 305 mOsm/kg 10/06/2024 8:16 AM EDT [facility] EGFR 22 10/06/2024 8:16 AM EDT [facility] Comment:As of 2021, the estimated GFR [...] MD LAB BLOOD ORDERABLES Final Resul t [facility] [address] [place] [address] * (ABNORMAL) Venous Blood Gas, Line/Syringe, STAT (10/06/2024 7:37 AM EDT) PH-Line Draw 7.27(L) 7.32 - 7.42 10/06/2024 7:46 AM EDT [facility] PCO2-Line Draw 36(L) 41 - 51 mm Hg 10/06/2024 7:46 AM EDT [facility] PO2-Line Draw 44(H) 25 - 40 mm Hg 10/06/2024 7:46 AM EDT [facility] HCO3-Line Draw 17(L) 24 - 28 mmol/L 10/06/2024 7:46 AM EDT [facility] CO2 Content-Line Draw 18(L) 25 - 29 mmol/L 10/06/2024 7:46 AM EDT [facility] Base Excess-Line Draw -9.6(L) -2.0 - 3.0 mmol/L 10/06/2024 7:46 AM EDT [facility] %HBO2-Line Draw 69.8 40.0 - 70.0 % 10/06/2024 7:46 AM EDT [facility] Carboxyhgb-Ludivina e Draw 0.7 % 10/06/2024 7:46 AM EDT [facility] Comment: CARBOXYHEMOGLOBIN (CO) REFERENCE RANGES: Non-Smokers: <2 % Smokers: <8 % TOXIC: >20 % Methemoglobin- Line Draw 0.3 0.0 - 1.5 % 10/06/2024 7:46 AM EDT [facility] Reduced Hemoglobin-Lduivina e Draw 29.2(H) 0.0 - 5.0 % 10/06/2024 7:46 AM EDT [facility] Venous, Line Draw 10/06/2024 7:37 AM EDT 10/06/2024 7:43 AM EDT Chari Vanegas MD LAB BLOOD ORDERABLES Final Resul t Performing Organization Address City/State/[facility] Co de Phone Number [facility] [address] * (ABNORMAL) Venous Blood Gas, Line/Syringe, STAT (10/06/2024 4:03 AM EDT) PH-Line Draw 7.21(L) 7.32 - 7.42 10/06/2024 4:16 AM EDT [facility] PCO2-Line Draw 41 41 - 51 mm Hg 10/06/2024 4:16 AM EDT [facility] PO2-Line Draw 32 25 - 40 mm Hg 10/06/2024 4:16 AM EDT [facility] HCO3-Line Draw 16(L) 24 - 28 mmol/L 10/06/2024 4:16 AM EDT [facility] CO2 Content-Line Draw 18(L) 25 - 29 mmol/L 10/06/2024 4:16 AM EDT [facility] Base Excess-Line Draw -10.8(L) -2.0 - 3.0 mmol/L 10/06/2024 4:16 AM EDT [facility] %HBO2-Line Draw 47.5 40.0 - 70.0 % 10/06/2024 4:16 AM EDT [facility] Carboxyhgb-Ludivina e Draw 2.0 % 10/06/2024 4:16 AM EDT [facility] Comment: CARBOXYHEMOGLOBIN (CO) REFERENCE RANGES: Non-Smokers: <2 % Smokers: <8 % TOXIC: >20 % Methemoglobin- Line Draw 0.7 0.0 - 1.5 % 10/06/2024 4:16 AM EDT [facility] Reduced Hemoglobin-Ludivina e Draw 49.8(H) 0.0 - 5.0 % 10/06/2024 4:16 AM EDT [facility] Venous, Line Draw 10/06/2024 4:03 AM EDT 10/06/2024 4:12 AM EDT us Bisi Hernandez DO LAB BLOOD ORDERABLES Final Resul t [facility] [address] [place] [address], [facility] * (ABNORMAL) Protime-INR (10/06/2024 4:01 AM EDT) Protime 21.3(H) 12.1 - 15.1 seconds 10/06/2024 4:40 AM EDT [facility] INR 1.8(H) 0.9 - 1.1 10/06/2024 4:40 AM EDT [facility] Comment: RECOMMENDED THERAPEUTIC RANGES USING INR : Stable oral anticoagulant therapy: 2.0 - 3.0 Mechanical prosthetic heart valve: 2.5 - 3.5 Recurrent acute myocardial infarction: 2.5 - 3.5 Plasma 10/06/2024 4:01 AM EDT 10/06/2024 4:11 AM EDT us Bisi Aknyu [facility] DO LAB BLOOD ORDERABLES Final Resul t [facility] [address] [place] [address], [facility] * (ABNORMAL) Hepatic Function Panel, AM (10/06/2024 4:01 AM EDT) Total Bilirubin 14.7(H) 0.0 - 1.5 mg/dL 10/06/2024 4:57 AM EDT [facility] Bilirubin, Direct 7.08(H) 0.00 - 0.40 mg/dL 10/06/2024 4:57 AM EDT [facility] AST 60(H) 13 - 39 U/L 10/06/2024 4:57 AM EDT [facility] ALT 31 7 - 52 U/L 10/06/2024 4:57 AM EDT [facility] Alkaline Phosphatase 162(H) 36 - 125 U/L 10/06/2024 4:57 AM EDT [facility] Total Protein 5.3(L) 6.4 - 8.9 g/dL 10/06/2024 4:57 AM EDT [facility] Albumin 3.4(L) 3.5 - 5.7 g/dL 10/06/2024 4:57 AM EDT [facility] Bilirubin, Indirect 7.62(H) 0.00 - 1.10 mg/dL 10/06/2024 4:57 AM EDT [facility] Plasma 10/06/2024 4:01 AM EDT 10/06/2024 4:22 AM EDT us Bisi Aknyu [facility] DO LAB BLOOD ORDERABLES Final Resul t [facility] [address] [facility] [place] [address], [facility] * Magnesium (10/06/2024 4:01 AM EDT) Magnesium 1.8 1.5 - 2.5 mg/dL 10/06/2024 4:57 AM EDT [facility] Plasma 10/06/2024 4:01 AM EDT 10/06/2024 4:22 AM EDT us Bisi Hernandez DO LAB BLOOD ORDERABLES Final Resul t [facility] [address] [place] [address], [facility] * (ABNORMAL) Renal Function Panel w/EGFR (10/06/2024 4:01 AM EDT) Sodium 129(L) 133 - 146 mmol/L 10/06/2024 4:57 AM EDT [facility] Potassium 4.7 3.5 - 5.3 mmol/L 10/06/2024 4:57 AM EDT [facility] Chloride 100 98 - 110 mmol/L 10/06/2024 4:57 AM EDT [facility] CO2 16(L) 21 - 33 mmol/L 10/06/2024 4:57 AM EDT [facility] Anion Gap 13 3 - 16 mmol/L 10/06/2024 4:57 AM EDT [facility] BUN 61(H) 7 - 25 mg/dL 10/06/2024 4:57 AM EDT [facility] Creatinine 3.49(H) 0.60 - 1.30 mg/dL 10/06/2024 4:57 AM EDT [facility] Glucose 104(H) 70 - 100 mg/dL 10/06/2024 4:57 AM EDT [facility] Calcium 9.2 8.6 - 10.3 mg/dL 10/06/2024 4:57 AM EDT [facility] Phosphorus 5.3(H) 2.1 - 4.7 mg/dL 10/06/2024 4:57 AM EDT [facility] Albumin 3.4(L) 3.5 - 5.7 g/dL 10/06/2024 4:57 AM EDT [facility] Osmolality, Calculated 286 278 - 305 mOsm/kg 10/06/2024 4:57 AM EDT [facility] EGFR 22 10/06/2024 4:57 AM EDT [facility] Comment:As of 2021, the estimated GFR [...] DO LAB BLOOD ORDERABLES Final Resul t [facility] [address] * (ABNORMAL) CBC (10/06/2024 4:01 AM EDT) WBC 7.6 3.8 - 10.8 10E3/uL 10/06/2024 5:16 AM EDT [facility] RBC 2.77(L) 4.20 - 5.80 10E6/uL 10/06/2024 5:16 AM EDT [facility] Hemoglobin 10.1(L) 13.2 - 17.1 g/dL 10/06/2024 5:16 AM EDT [facility] Hematocrit 28.4(L) 38.5 - 50.0 % 10/06/2024 5:16 AM EDT [facility] MCV 102.4(H) 80.0 - 100.0 fL 10/06/2024 5:16 AM EDT [facility] MCH 36.4(H) 27.0 - 33.0 pg 10/06/2024 5:16 AM EDT [facility] MCHC 35.5 32.0 - 36.0 g/dL 10/06/2024 5:16 AM EDT [facility] RDW 18.0(H) 11.0 - 15.0 % 10/06/2024 5:16 AM EDT [facility] Platelets 53(L) 140 - 400 10E3/uL 10/06/2024 5:16 AM EDT [facility] Comment:Specimen checked for clots. None detected. MPV 8.4 7.5 - 11.5 fL 10/06/2024 5:16 AM EDT [facility] Whole Blood 10/06/2024 4:01 AM EDT 10/06/2024 4:11 AM EDT [facility] LAB BLOOD ORDERABLES Final Resul t Performing Organization Address City/[facility] Co de Phone Number [facility] [address] [place] [address]. [address] * Hepatitis C Antibody (10/06/2024 4:01 AM EDT) HCV Ab Nonreactive Nonreactive 10/06/2024 5:12 AM EDT [facility] Comment:Health Department no tified in accordance with reportable infectious disease guidelines. Serum 10/06/2024 4:01 AM EDT 10/06/2024 4:11 AM EDT Narrative [facility] - 10/06/2024 5:12 AM EDT Antibodies to HCV not detected; does not exclude the possibility of exposure to HCV. [facility] LAB BLOOD ORDERABLES Final Resul t Performing Organization Address City/[facility]/ZIP Co de Phone Number [facility] [facility] [address] [facility]. [address] * (ABNORMAL) Hepatitis B Surface Antibody, Quantitati (10/06/2024 4:01 AM EDT) Hep B S Ab Reactive( A) Nonreactive 10/06/2024 5:16 AM EDT [facility] HBSAB NUMBER 11.50(H) 0.00 - 7.99 mIU/mL 10/06/2024 5:16 AM EDT [facility] Serum 10/06/2024 4:01 AM EDT 10/06/2024 4:11 AM EDT [facility] - 10/06/2024 5:16 AM EDT Individual is considered immune to HBV infection. [facility] LAB BLOOD ORDERABLES Final Resul t Performing Organization Address [facility] Co de Phone Number [facility] [address] [facility]. [address] * Hepatitis B surface antigen (10/06/2024 4:01 AM EDT) Hep B Surface Ag Nonreactive Nonreactive 10/06/2024 5:07 AM EDT [facility] Comment:Health Department no tified in accordance with reportable infectious disease guidelines. Serum 10/06/2024 4:01 AM EDT 10/06/2024 4:11 AM EDT [facility] - 10/06/2024 5:07 AM EDT Specimen is considered negative for HBsAg. [facility] LAB BLOOD ORDERABLES Final Resul t Performing Organization Address [facility] de Phone Number [facility] [address] [facility]. [address] * Hepatitis A Antibody Total (10/06/2024 4:01 AM EDT) Anti-HAV Total (IgG + IgM) Nonreactive 10/06/2024 5:08 AM EDT [facility] Serum 10/06/2024 4:01 AM EDT 10/06/2024 4:11 AM EDT [facility] - 10/06/2024 5:08 AM EDT HAV antibodies not detected [facility] BLOOD ORDERABLES Final Resul t Performing Organization Address City/[facility]/ZIP Co de Phone Number [facility] [address] [facility]. [address] * Hepatitis A IgM (10/06/2024 4:01 AM EDT) Hep A IgM Nonreactive Nonreactive 10/06/2024 5:02 AM EDT [facility] Serum 10/06/2024 4:01 AM EDT 10/06/2024 4:11 AM EDT Narrative [facility] - 10/06/2024 5:02 AM EDT IgM anti-HAV not detected. Does not exclude the possibility of exposure to or infection with HAV. Levels of IgM anti-HAV may be below the cut-off in early infection. [facility] BLOOD ORDERABLES Final Resul t Performing Organization Address City/[facility] Co de Phone Number [facility] [address] * (ABNORMAL) Salicylate Level (10/06/2024 4:01 AM EDT) Salicylate Lvl <3(L) 10 - 30 mg/dL 10/06/2024 4:58 AM EDT [facility] Serum 10/06/2024 4:01 AM EDT 10/06/2024 4:22 AM EDT [facility] BLOOD ORDERABLES Final Resul t Performing Organization Address [facility] de Phone Number [facility] [address] * AFP Tumor Marker (10/06/2024 4:01 AM EDT) AFP-Tumor Marker 2.6 0.0 - 9.0 ng/mL 10/06/2024 4:55 AM EDT [facility] Serum 10/06/2024 4:01 AM EDT 10/06/2024 4:22 AM EDT Narrative [facility] - 10/06/2024 4:55 AM EDT The testing method for AFP is a chemiluminescent immunoassay manufactured by [employer] Concentrations of AFP obtained by different assay methods or kits may vary and cannot be used interchangeably. AFP results cannot be interpreted as absolute evidence of the presence or absence of malignant disease. Bisi Hernandez DO LAB BLOOD ORDERABLES Final Resul t [facility] [address] [place] [address], [facility] * Upper Respiratory Viral/Bacterial Panel-RELATIONS MGR Only (10/06/2024 3:12 AM EDT) Adenovirus Not Detected Not Detected 10/06/2024 11:38 PM EDT [facility] Coronavirus (229E,HKU1,NL63,OC 43) Not Detected Not Detected 10/06/2024 11:38 PM EDT [facility] SARS-CoV-2 Not Detected Not Detected 10/06/2024 11:38 PM EDT [facility] Human Metapneumovirus Not Detected Not Detected 10/06/2024 11:38 PM EDT [facility] Human Rhinovirus/Enterov irus Not Detected Not Detected 10/06/2024 11:38 PM EDT [facility] Influenza A Not Detected Not Detected 10/06/2024 11:38 PM EDT [facility] Influenza A H1 Not Detected Not Detected 10/06/2024 11:38 PM EDT [facility] Influenza A/H1-2009 Not Detected Not Detected 10/06/2024 11:38 PM EDT [facility] Influenza A H3 Not Detected Not Detected 10/06/2024 11:38 PM EDT [facility] Influenza B Not Detected Not Detected 10/06/2024 11:38 PM EDT [facility] Parainfluenza 1 Not Detected Not Detected 10/06/2024 11:38 PM EDT [facility] Parainfluenza 2 Not Detected Not Detected 10/06/2024 11:38 PM EDT [facility] Parainfluenza 3 Not Detected Not Detected 10/06/2024 11:38 PM EDT [facility] Parainfluenza 4 Not Detected Not Detected 10/06/2024 11:38 PM EDT [facility] Resp. Syncycial Virus A Not Detected Not Detected 10/06/2024 11:38 PM EDT [facility] Resp. Syncycial Virus B Not Detected Not Detected 10/06/2024 11:38 PM EDT [facility] Chlamydia pneumoniae Not Detected Not Detected 10/06/2024 11:38 PM EDT [facility] Mycoplasma pneumoniae Not Detected Not Detected 10/06/2024 11:38 PM EDT [facility] Comment: The Respiratory Viral-Bacterial Panel is [...] Test results have been sent to the [facility] in accordance with state requirements. For a fact sheet for healthcare providers, see https://www.fda.gov/media/746854/download. For a fact sheet for patients, see https://www.fda.gov/media/612332/download. Nasopharyngeal Swab NASOPHARYNGEAL SWAB / Unknown 10/06/2024 3:12 AM EDT 10/06/2024 5:41 PM EDT Comment:RELATIONS MGR us Bisi Hernandez DO BODY FLUIDS AND STOOLS ORDERABLE S Final Result [facility] [address] * X-ray Portable Chest (10/06/2024 1:16 [...] 10/06/2024 2:33 AM EDT Bisi Hernandez DO [facility] DIAGNOSTIC IMAGING ORDERABLE S Final Result * [...] PEth Interpretation Negative. 10/10 3:11 AM EDT [facility] Comment: ADDITIONAL INFORMATION [...] Food and Drug Administration. Test Performed by: [place] [address] Drywall Stripper: Kathy Ortiz Ph.D.; CLIA# [id number] Whole Blood 10/06/2024 1:04 AM EDT 10/10/2024 3:11 AM EDT [facility] BLOOD ORDERABLES Final Resul t Performing Organization Address City/[facility]/ZIP Co de Phone Number [facility] [address] * (ABNORMAL) Acetaminophen Level (10/06/2024 1:04 AM EDT) Acetaminophen Level <10(L) 10 - 30 ug/mL 10/06/2024 2:08 AM EDT [facility] Serum 10/06/2024 1:04 AM EDT 10/06/2024 1:30 AM EDT [facility] BLOOD ORDERABLES Final Resul t [facility] [address] * Ethanol, Serum (10/06/2024 1:04 AM EDT) Ethanol <10 0 - 10 mg/dL 10/06/2024 2:08 AM EDT [facility] Serum 10/06/2024 1:04 AM EDT 10/06/2024 1:30 AM EDT Bisi Akana maría LAB BLOOD ORDERABLES Final Resul t [facility] [address] * #2 Blood culture-Peripheral site 2 (10/06/2024 1:04 AM EDT) Culture Result No Growth After 5 Days [facility] Blood BLOOD SPECIMEN / Unknown 10/06/2024 1:04 AM EDT 10/06/2024 4:57 AM EDT Narrative [facility] - 10/11/2024 5:05 AM EDT Suboptimal volume of blood received. Interpret results with caution. Bisi Hernandez MICROBIOLOGY - GENERAL ORDERABLE S Final Result Performing Organization Address City/[facility]/ZIP Co de Phone Number [facility] [address] * #1 Blood culture-Peripheral site 1 (10/06/2024 1:04 AM EDT) Culture Result No Growth After 5 Days [facility] Blood BLOOD SPECIMEN / Unknown 10/06/2024 1:04 AM EDT 10/06/2024 4:57 AM EDT Narrative [facility] - 10/11/2024 5:01 AM EDT Suboptimal volume of blood received. Interpret results with caution. Bisi Crowdpacana maría DOZIER MICROBIOLOGY - GENERAL ORDERABLE S Final Result [facility] [address] * Ammonia (10/06/2024 1:04 AM EDT) Ammonia 77 27 - 90 ug/dL 10/06/2024 2:00 AM EDT [facility] Plasma 10/06/2024 1:04 AM EDT 10/06/2024 1:30 AM EDT [facility] BLOOD ORDERABLES Final Resul t Performing Organization Address City/[facility] Co de Phone Number [facility] [address] * Thyroid Function [place]ole (10/06/2024 1:04 AM EDT) TSH 0.84 0.45 - 4.12 uIU/mL 10/06/2024 2:20 AM EDT [facility] Serum 10/06/2024 1:04 AM EDT 10/06/2024 1:39 AM EDT [facility] BLOOD ORDERABLES Final Resul t Performing Organization Address [facility] de Phone Number [facility] [address] * (ABNORMAL) Protime-INR (10/06/2024 1:04 AM EDT) Protime 22.8(H) 12.1 - 15.1 seconds 10/06/2024 1:48 AM EDT [facility] INR 1.9(H) 0.9 - 1.1 10/06/2024 1:48 AM EDT [facility] Comment: RECOMMENDED THERAPEUTIC RANGES USING INR : Stable oral anticoagulant therapy: 2.0 - 3.0 Mechanical prosthetic heart valve: 2.5 - 3.5 Recurrent acute myocardial infarction: 2.5 - 3.5 Plasma 10/06/2024 1:04 AM EDT 10/06/2024 1:30 AM EDT us [employer] DO LAB BLOOD ORDERABLES Final Resul t [facility] [address] [facility] * Lactic Acid, STAT (10/06/2024 1:04 AM EDT) Lactate 1.2 0.5 - 2.2 mmol/L 10/06/2024 1:59 AM EDT [facility] Plasma 10/06/2024 1:04 AM EDT 10/06/2024 1:30 AM EDT us Bisi Crowdpacella DO LAB BLOOD ORDERABLES Final Resul t Performing Organization Address [facility] Co de Phone Number [facility] [address] * (ABNORMAL) CBC, STAT (10/06/2024 1:04 AM EDT) WBC 7.9 3.8 - 10.8 10E3/uL 10/06/2024 2:36 AM EDT [facility] RBC 2.76(L) 4.20 - 5.80 10E6/uL 10/06/2024 2:36 AM EDT [facility] Hemoglobin 9.9(L) 13.2 - 17.1 g/dL 10/06/2024 2:36 AM EDT [facility] Hematocrit 28.0(L) 38.5 - 50.0 % 10/06/2024 2:36 AM EDT [facility] MCV 101.5(H) 80.0 - 100.0 fL 10/06/2024 2:36 AM EDT [facility] MCH 35.7(H) 27.0 - 33.0 pg 10/06/2024 2:36 AM EDT [facility] MCHC 35.2 32.0 - 36.0 g/dL 10/06/2024 2:36 AM EDT [facility] RDW 17.9(H) 11.0 - 15.0 % 10/06/2024 2:36 AM EDT [facility] Platelets 58(L) 140 - 400 10E3/uL 10/06/2024 2:36 AM EDT [facility] Comment: Specimen checked for clots. None detected. Slide Reviewed for PLT Clumps. None Seen. MPV 8.2 7.5 - 11.5 fL 10/06/2024 2:36 AM EDT [facility] Whole Blood 10/06/2024 1:04 AM EDT 10/06/2024 1:31 AM EDT us Bisi Hernandez DO LAB BLOOD ORDERABLES Final Resul t [facility] [address] [place] [address], [facility] * (ABNORMAL) Comprehensive Metabolic Panel (10/06/2024 1:04 AM EDT) Sodium 127(L) 133 - 146 mmol/L 10/06/2024 2:05 AM EDT [facility] Potassium 4.5 3.5 - 5.3 mmol/L 10/06/2024 2:05 AM EDT [facility] Chloride 99 98 - 110 mmol/L 10/06/2024 2:05 AM EDT [facility] CO2 18(L) 21 - 33 mmol/L 10/06/2024 2:05 AM EDT [facility] Anion Gap 10 3 - 16 mmol/L 10/06/2024 2:05 AM EDT [facility] BUN 59(H) 7 - 25 mg/dL 10/06/2024 2:05 AM EDT [facility] Creatinine 3.54(H) 0.60 - 1.30 mg/dL 10/06/2024 2:05 AM EDT [facility] Glucose 116(H) 70 - 100 mg/dL 10/06/2024 2:05 AM EDT [facility] Calcium 9.0 8.6 - 10.3 mg/dL 10/06/2024 2:05 AM EDT [facility] Total Bilirubin 14.8(H) 0.0 - 1.5 mg/dL 10/06/2024 2:05 AM EDT [facility] AST 61(H) 13 - 39 U/L 10/06/2024 2:05 AM EDT [facility] ALT 33 7 - 52 U/L 10/06/2024 2:05 AM EDT [facility] Alkaline Phosphatase 174(H) 36 - 125 U/L 10/06/2024 2:05 AM EDT [facility] Total Protein 5.2(L) 6.4 - 8.9 g/dL 10/06/2024 2:05 AM EDT [facility] Albumin 3.3(L) 3.5 - 5.7 g/dL 10/06/2024 2:05 AM EDT [facility] Osmolality, Calculated 282 278 - 305 mOsm/kg 10/06/2024 2:05 AM EDT [facility] EGFR 21 10/06/2024 2:05 AM EDT [facility] Comment:As of 2021, the estimated GFR [...] DO LAB BLOOD ORDERABLES Final Resul t [facility] [address] [place] [address], [facility] documented in this encounter Visit Diagnoses [...] Intravenous, Administer over 120 Minutes, Once, On 10/07/24 at 0730, For 1 dose New Bag [...] patient is non-communicative (CPOT 3-5), Starting on [facility] 10/07/24 at 1205 oxyCODONE (ROXICODONE) immediate release [...] in sodium chloride 0.9 % 250 mL [id number] 1,000 mg, Intravenous, Administer over 60 Minutes, Once, Contact pharmacy if there is a question/concern of whether vancomycin should be given based on serum drug levels. Use [id number] Adapter - Mix Thoroughly Before Administration, Indication? Infection-Suspected, Site of diagnosed infections (select all that apply): Abdominal/Pelvic New Bag 10/08/2024 12:59 PM EDT 1,000 mg 250 mL/hr vancomycin (VANCOCIN) 1,500 mg in sodium chloride 0.9 % 250 mL [id number] 1,500 mg, Intravenous, Administer over 90 Minutes, Once, Contact pharmacy if there is a question/concern of whether vancomycin should be given based on serum drug levels. Use Kygi0Rge Adapter - Mix Thoroughly Before Administration, Indication? [...] refused) 2032 (Not Given - Provider: Soco Milton, ЮЛИЯ - Reason: Patient/family refused) methocarbamoL (ROBAXIN) tablet [...] 0849 (Given - Provider: Suzette Arciniega, ЮЛИЯ) oxyCODONE (ROXICODONE) immediate release tablet 5 mg [...] ЮЛИЯ) 0834 (Given - Provider: Anu Wolff RN)202 (Given - Provider: Soco Milton RN) 0850 (Given - Provider: Suzette Arciniega, ЮЛИЯ) sertraline (ZOLOFT) tablet 50 mg (CANCELED) 50 mg, Oral, Daily, First dose on Sun10/16/24 at 0900 0833 (Given - Provider: Anu Wolff, RN) sodium bicarbonate tablet 1,300 mg 1,300 [...] 0200 0820 (Given - Provider: Anu Wolff RN)2113 (Given - Provider: Chelsy Bush RN) 0833 [...] Milton, ЮЛИЯ)0848 (See Alternative - Provider: Suzette Arciniega, ЮЛИЯ) [...] Anu Wolff RN)2030 (Given - Provider: Soco Milton, ЮЛИЯ) 0245 (Given - Provider: Soco Milton RN)0848 (Given - Provider: Suzette Arciniega, ЮЛИЯ) Linked Groups Order Group 1: oxyCODONE (ROXICODONE) immediate release tablet 2.5 mgJump to med 2.5 mg, Oral, Every 6 hours PRN, moderate pain (NRS 4-6) or if patient is non-communicative (CPOT 3-5), Starting on 10/07/24 at 1205 Or oxyCODONE (ROXICODONE) immediate release [...] documented as of this encounter Care Teams Seasonal Sales Associate Relationship Specialty Start Date End Date Enedina Mcguire NP [address] [place] [id number] PCP - General Internal Medicine 10/05/24 documented as of this encounter
--- OUTSIDE RECORDS SUMMARY | 2024-10-10 10:36 | XMS_ITS | Encounter Summary ---
Author Organization [facility] Address [facility] [place] [address] Care Team Providers Care Engineer Second Assistant Name Role Phone Enedina Mcguire NP Primary Care Provider [phone] Source Comments This information has been disclosed [...] release of HIV test results or diagnoses. [id number] Health Reason for Visit * Auth/Cert (Routine) Specialty Diagnoses / Procedures Referred By Shane hernadez Referred To Contact General Internal Medicine Diagnoses [facility] [address] [place] [address] Phone: tel: Referral ID Status Reason Start Date Expiration Date Visits Re quested Visits Authorized [id number] 1 1 Encounter Details Date Type Department Care Team (Late st Contact Info) Description 10/10/2024 10:36 AM EDT - 10/10/2024 11:06 AM EDT Surgery [facility] ENDOSCOPY [address] [place] [address] Lino Soto MD [address] [place] [id number] EGD Surgery Details Date/Time Status Location OR Service Patient Class Case Class Case Type Trauma Case? 10/10/2024 10:36 AM Posted ENDOSCOPY E2 Gastroenterology Inpatient EGD/Sm Bowel Panel 1 Procedure LRB Anes Op Region Wound Class Comments EGD N/A MAC (Monitor Ane [facility]) Clean Contaminated Surgeon Surgeon Role Service Panel [...] any time in the past 12 m [facility], were you homeless or living in a long term (including now)? No 10/06/2024 Yearly Questionnaire Answer [...] Kandy Fuentes - 10/17/2024 10:29 AM EDT [facility] Care Management Discharge Summary Patient name: Julien [...] post discharge: Not Applicable Kandy BAE RN [phone] * William Blount MD - 10/17/2024 8:50 AM EDT [facility] Inpatient Discharge Summary Patient: Julien Gilbert Age: 39 y.o. CSN: [id number] Date of Admission: 10/05/2024 Date of Discharge: [...] Case IDs Date Procedure Surgeon Location Status [id number] 10/10/24 EGD Lino Soto MD ENDOSCOPY Comp [id number] 10/14/24 Left Heart Cath Irving Matta MD [...] at 10/08/2024 1:12 PM EDT US Duplex Zgg-Xet-Gouzixr Comp Final Result IMPRESSION: ABDOMEN 1. Cirrhotic [...] 90 tablet Refills: 0 naloxone 4 mg/actuation [place] Commonly known as: NARCAN Apply 1 spray [...] Your Medications These medications were sent to [facility] [address] Hours: Sunday - Sunday: 8:00AM - 6:00PM FLUoxetine 20 MG capsule lactulose 10 gram/15 mL solution loratadine 10 mg tablet methocarbamoL 500 MG tablet midodrine 10 MG tablet naloxone 4 mg/actuation [place] oxyCODONE 5 MG immediate release tablet Discharge [...] [M54.2, Z98.890] 10/07/2024 SBP (spontaneous bacterial peritonitis) ([facility]) [K65.2] 09/08/2024 Anemia [D64.9] 09/05/2024 Metabolic acidosis [...] Order Questions: Select Supplement: Boost-1 kcal/ml supplement ([facility] only) As listed above, low [...] MD - 10/17/2024 9:13 AM EDT Julien Justin, Here are your hospital discharge instructions: --> [...] AM EDT 10/17/2024 naloxone (NARCAN) 4 mg/actuation [place] Apply 1 spray in one nostril if [...] Hughes MD - 10/17/2024 10:23 AM EDT [facility] HEPATOLOGY PROGRESS NOTE Name: Julien Gilbert CSN: [id number] Consulted by: Chelsy Lerner MD Reason for [...] Yes Past Week naloxone (NARCAN) 4 mg/actuation [place] Apply 1 spray in one nostril if [...] nucleated cells, <2000 RBCs 10% Polynuclear, 90% Toombs nuc. There were initial reports of gram [...] of chemical dependency treatment as outpatient. - [facility] with no obstructive coronary disease - Psych eval for PTSD With recommendation of sertraline - Given his renal dysfunction, will plan to list for [facility] when he qualifies on 10/22/2024. Labs next week - Plan for d/c today Bobby Sidhu MD Transplant Motor Hotel Manager Please see the body of the resident, [...] remains <30 until October 22. Waiting for [facility] today. ASSESSMENT NADYIA on CKD, last discharge creatinine 2.4 Baseline [...] Staff. Jeremiah Gamino PGY4 Nephrology. Pager no. [phone] Chief Complaint No chief complaint on file. [...] at 10/08/2024 1:12 PM EDT US Duplex Plh-Obr-Fmugyzm Comp Final Result IMPRESSION: ABDOMEN 1. Cirrhotic [...] imaging has been performed at [facility]. -CT Head w/o contrast -Imaging showed [...] Order Questions: Select Supplement: Boost-1 kcal/ml supplement ([facility] only) Code Status: Full Code [...] another specialty or practice, other licensed professional (PT/OT/LICENSED OPTICAL DISPENSER/RT), or a non-medical community professional: Hepatology, Interventional [...] due to positioning during LHC on 10/14. [place] the worst in CVR, but has improved [...] Kumar, DMITRY - 10/16/2024 1:08 PM EDT [facility] Medical Nutrition Therapy Follow-Up Diet Order/Nutrition Support: Regular diet, Boost TID - Vanilla preference Pertinent Information: This is a 39 year old male history of ETOH cirrhosis d/b HE, ascites with SBP who is admitted for AMS. Precipitant of his HE likely SBP. Diagnostic paracentesis at OSH reportedly showed 61 nucleated cells, <2000 RBCs 10% Polynuclear, 90% Toombs nuc. There were initial reports of gram + rods on fluid gram stain but this has also been reported as NGTD. Mental status improved after course of ceftriaxone. Patient completed work up for liver transplant. Anticipate listing himfor K next week. Planning to [place] home pending [...] Based on CBW of 119.5 kg Kcals/day: 9670-2294 (18-21 kcals/kg) Protein g/day: 119-143 (1-1.2 g/kg) [...] Kumar RD, LD Clinical Dietitian Contact via [place] * Jerad Hughes MD - 10/16/2024 11:03 AM EDT [facility] HEPAT[facility]Y PROGRESS NOTE Name: Julien Gilbert CSN: [id number] Consulted by: Chelsy Lerner MD Reason for [...] liver (CMS-HCC) Esophageal varices (CMS-HCC) Hepatorenal syndrome ([facility]) Hypertension Other hyperlipidemia 07/26/2024 Renal cell carcinoma (CMS-HCC) Thrombocytopenia ([facility]) Thyroid disease Past Surgical History: Procedure [...] nucleated cells, <2000 RBCs 10% Polynuclear, 90% Toombs nuc. There were initial reports of gram [...] Other (See Comments) Became Manic Cosigned by Chineud Sidhu MD at 10/18/2024 1:22 PM EDT [...] of chemical dependency treatment as outpatient. - [facility] with no obstructive coronary disease - Psych eval for PTSD With recommendation of sertraline - Given his renal dysfunction, will plan to list for [facility] when he qualifies on 10/22/2024. - Will follow Bobby Sidhu MD Transplant Motor Hotel Manager Please see the body of the resident, [...] remains <30 until October 22. Waiting for [facility] today. ASSESSMENT NADIYA on CKD, last discharge [...] COMMENT on 10/08/2024 Iron%- Iron replete PLAN -[facility] yesterday- patient remains at risk of contrast related injury on top of exisiting NADIYA for 24-48 hrs after contrast load. -He is volume overloaded -patient needs to follow up closely with nephrology after discharge Thank you for allowing us to participate in this patient's care. Discussed with Consult Staff. Jeremiah Gamino PGY4 Nephrology. Pager no. [phone] Chief Complaint No chief complaint on file. [...] at 10/08/2024 1:12 PM EDT US Duplex Cok-Ngt-Yxawuxc Comp Final Result IMPRESSION: ABDOMEN 1. Cirrhotic [...] imaging has been performed at [facility]. -CT Head w/o contrast -Imaging showed [...] Order Questions: Select Supplement: Boost-1 kcal/ml supplement ([facility] only) Code Status: Full Code Signed: WILLIAM BLOUNT MD 10/15/2024, 10:49 AM Cosigned by Chelsy Lerner MD at 10/15/2024 2:47 PM EDT Associated attestation - Chelsy Lerner MD - 10/15/2024 2:47 PM EDT [facility] Medicine Attending Supervision Note Julien Gilbert [...] another specialty or practice, other licensed professional (PT/OT/LICENSED OPTICAL DISPENSER/RT), or a non-medical community professional: Hepatology, Interventional [...] due to positioning during LHC on 10/14. [place] the worst in CVR, but has improved [...] Hughes MD - 10/15/2024 10:15 AM EDT [facility] HEPAT[facility]Y PROGRESS NOTE Name: Julien Gilbert CSN: [id number] Consulted by: Chelsy Lerner MD Reason for [...] nucleated cells, <2000 RBCs 10% Polynuclear, 90% Toombs nuc. There were initial reports of gram [...] of chemical dependency treatment as outpatient. - [facility] yesterday with no obstructive coronary disease - Psych eval for PTSD and medical management - Given his renal dysfunction, will plan to list for [facility] when he qualifies on 10/22/2024. - Will follow Bobby Sidhu MD Transplant Motor Hotel Manager Please see the body of the resident, [...] Quan MD - 10/14/2024 2:34 PM EDT [facility] Department of Cardiovascular Health and [...] remains <30 until October 22. Waiting for [facility] today. ASSESSMENT NADIYA on CKD, last discharge creatinine 2.4 Baseline Creatinine 1.2-1.3, HRS- NADIYA as no response to holding lasix and albumin UA bland Urine lytes <10/< 15/ 50 Holding lasix give [facility] today Renal Function: Recent Labs 10/14/24 0253 [...] Staff. Jeremiah Gamino PGY4 Nephrology. Pager no. [phone] Chief Complaint No chief complaint on file. [...] at 10/08/2024 1:12 PM EDT US Duplex Ohk-Kkv-Vqyfnkn Comp Final Result IMPRESSION: ABDOMEN 1. Cirrhotic [...] not tolerate Stress ECHO on 10/09 - [facility] today -Per GI recs, started on midodrine 10mg TID -Triphasic MRI #Anemia Hgb 6.9 on 5/28. Likely dilutional due to albumin treatment. S/p [...] imaging has been performed at [facility]. -CT Head w/o contrast -Imaging showed [...] never required dialysis. Patient is going for [facility] today and will receive contrast, okay per [...] Order Questions: Select Supplement: Boost-1 kcal/ml supplement ([facility] only) Code Status: Full Code [...] to go home as soon as possible. C postponed until today, still on as add [...] another specialty or practice, other licensed professional (PT/OT/LICENSED OPTICAL DISPENSER/RT), or a non-medical community professional: Hepatology, Interventional [...] Hughes MD - 10/14/2024 7:42 AM EDT [facility] HEPATOLOGY PROGRESS NOTE Name: Julien Gilbert CSN: [id number] Consulted by: Chelsy Lerner MD Reason for [...] nucleated cells, <2000 RBCs 10% Polynuclear, 90% Toombs nuc. There were initial reports of gram [...] eval ongoing. Transplant work up ongoing - [facility] today - Transplant nephrology following for consideration [...] - Will follow Bobby Sidhu MD Transplant Motor Hotel Manager Please see the body of the resident, [...] Staff. Jeremiah Gamino PGY4 Nephrology. Pager no. [phone] Chief Complaint No chief complaint on file. [...] Hughes MD - 10/13/2024 12:33 PM EDT [facility] HEPAT[facility]Y PROGRESS NOTE Name: Julien Gilbert CSN: [id number] Consulted by: Fouzia Rene MD Reason for [...] nucleated cells, <2000 RBCs 10% Polynuclear, 90% Toombs nuc. There were initial reports of gram [...] eval ongoing. Transplant work up ongoing - [facility] today - Transplant nephrology following for consideration [...] (See Comments) Became Manic Cosigned by Chinedu Siduh MD at 10/18/2024 1:16 PM EDT Associated [...] - Will follow Bobby Sidhu MD Transplant Motor Hotel Manager Please see the body of the resident, [...] interval liver pathology. 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 * Citlaly Fabian RD - 10/13/2024 10:49 AM EDT [facility] Medical Nutrition Therapy Reason(s) for [...] Order Questions: Select Supplement: Boost-1 kcal/ml supplement ([facility] only) Pertinent Information: Julien Gilbert is a 39 y.o. Male admitted for Acute kidney injury superimposedon CKD ([facility]) Pt noted to have waxing and [...] kg) Body mass index is 32.07 kg/m??. [place] Body Weight: 202 lbs (91.8 kg) +/- 10% Weight History: Wt Readings from Last 10 Encounters: 10/10/24 (!) 263 lb 8 oz (119.5 kg) 09/05/24 (!) 262 lb 9.6 oz (119.1 kg) 09/02/24 (!) 258 lb (117 kg) 08/17/24 (!) 242 lb 11.2 oz (110.1 kg) 07/28/24 (!) 245 lb (111.1 kg) Estimated Nutrition Needs: Based on CBW of 119.5 kg Kcals/day: 2736-1769 (18-21 kcals/kg) Protein g/day: 119-143 (1-1-2 g/kg) [...] ordered/tolerated Area RD to continue to monitor iCtlaly Fabian MS DMITRYN LD Clinical Dietitian - Solid Organ Transplant Contact via [employer] Chat * Eileen Schroeder MD, PhD - 10/13/2024 8:19 AM EDT Department of Internal Medicine Daily Progress Note Chief Complaint / Reason for Follow-Up Julien Gilbert is a 39 y.o. male on hospital day 8. The principal reason for today's follow up visit is Acute kidney injury superimposed on CKD ([facility]). NAEON Pt felt well this AM. [...] at 10/08/2024 1:12 PM EDT US Duplex Sxb-Fxi-Hzmnkvl Comp Final Result IMPRESSION: ABDOMEN 1. Cirrhotic [...] imaging has been performed at [facility]. -CT Head w/o contrast -Imaging showed [...] Order Questions: Select Supplement: Boost-1 kcal/ml supplement ([facility] only) Code Status: Full Code [...] reviewed the documentation by the medical steam hand and agree as documented. Any additions or clarifications are listed below. Daily plan was discussed with patient at bedside and questions addressed. Patient ID: Julien Gilbert is a 39 y.o. male currently admitted for Acute kidney injury superimposed on CKD ([facility]) Supplemental History/ ROS: No acute events [...] Acute kidney injury superimposed on CKD ([facility]) Active Problems: NADIYA (acute kidney injury) on CKD ([facility]): Hepatorenal syndrome. Appreciate nephrology consult. S/p [...] was non-diagnostic due to hypotension. Plan for [facility] today, but now moved to tomorrow. - [...] when medically ready. Consider d/c home after C tomorrow. FOUZIA RENE MD Attending Physician Department of Internal Medicine 10/13/2024 Medical Decision Making: // LEVEL 2 MOD One chronic illness with exacerbation, progression, or side effects of treatment Discussed with physician/SAWYER from another specialty or practice, other licensed professional (PT/OT/LICENSED OPTICAL DISPENSER/RT), or a non-medical community professional: Nephrology, Hepatology [...] at 10/08/2024 1:12 PM EDT US Duplex Ubc-Ykt-Ykyxhvp Comp Final Result IMPRESSION: ABDOMEN 1. Cirrhotic [...] imaging has been performed at [facility]. -CT Head w/o contrast -Imaging showed [...] Order Questions: Select Supplement: Boost-1 kcal/ml supplement ([facility] only) Code Status: Full Code [...] reviewed the documentation by the medical steam hand and agree as documented. Any additions or [...] Acute kidney injury superimposed on CKD ([facility]) Active Problems: NADIYA (acute kidney injury) on CKD ([facility]): Hepatorenal syndrome. Appreciate nephrology consult. S/p albumin X3. baseline creatinine presumed to be around 2.5. Creatinine improved from its peak and may be now fluctuating around a new baseline. We will continue to monitor. Spontaneous Bacterial Peritonitis ([facility]): He remains afebrile and vital signs have been stable. Received 4 days of vancomycin, Ceftriaxone x 5d. - Restart Cipro prophylaxis Anemia: Multiple contributors. S/p 1 unit PRBC. Hemoglobin responded appropriately and remained stable. Will continue to monitor. Metabolic encephalopathy: Resolved. Likely related to combination of hepatic, metabolic, and possibly infectious insults. - Continue home lactulose and rifaximin Decompensated cirrhosis ([facility]): Appreciate hepatology consult. He has started [...] another specialty or practice, other licensed professional (PT/OT/LICENSED OPTICAL DISPENSER/RT), or a non-medical community professional: Nephrology, Hepatology [...] tid. cardiac workup pre txp. pLan for [facility] Sunday Liver transplant workup per GI/ Primary [...] concern for hepatorenal syndrome.` Patient came from [facility], paracentesis was performed yesterday on 10/05? [...] 706.9 (H) 10/08/2024 No results found for: [id number] , FOLATE Lab Results Component Value Date [...] CRUR No results found for: MICROALBUR , [id number] In addition to the above an extensive [...] 4.6 10/12/2024 Lab Results Component Value Date MEFJ07E 7.1 (L) 10/08/2024 PLAN Monitor renal panel [...] AM Colten Huertas MD, KISHOR LIN, PETE metal fabricator helper Div. of Nephrology [facility] E-mail: [email or web address] This note was completely edited, written and [...] Rene MD Interval hx No issues. Pending [facility]. Assessment: Renal Function: Cr: 2.77 Bun: 49 [...] tid. cardiac workup pre txp. pLan for [facility] Sunday 4. Liver transplant workup per GI/ [...] CKD Decompensated cirrhosis History of Present Illness uJlien Gilbert is a 39 y.o. y/o male [...] concern for hepatorenal syndrome.` Patient came from [facility], paracentesis was performed yesterday on 10/05? [...] 706.9 (H) 10/08/2024 No results found for: [id number] , FOLATE Lab Results Component Value Date [...] CRUR No results found for: MICROALBUR , [id number] In addition to the above an extensive [...] 3.5 10/11/2024 Lab Results Component Value Date [id number] 7.1 (L) 10/08/2024 PLAN Monitor renal panel [...] 3:02 AM Colten Huertas MD, KISHOR LIN, CATHYF metal fabricator helper Div. of Nephrology [facility] E-mail: [email or web address] This note was completely edited, written and [...] 39 \ / 20 / \ / \ PT/INR/PTT - 10/11/2024 PT 26.8 [...] at 10/08/2024 1:12 PM EDT US Duplex Ptf-Jnw-Pbouiwa Comp Final Result IMPRESSION: ABDOMEN 1. Cirrhotic [...] from outside facility. Will engage with them daily([phone]. Ask to speak to a tech) about [...] imaging has been performed at [facility]. -CT Head w/o contrast -Imaging showed [...] Order Questions: Select Supplement: Boost-1 kcal/ml supplement ([facility] only) Code Status: Full Code [...] reviewed the documentation by the medical steam hand and agree as documented. Any additions or clarifications are listed below. Daily plan was discussed with patient at bedside and questions addressed. Patient ID: Julien Gilbert is a 39 y.o. male currently admitted for Acute kidney injury superimposed on CKD ([facility]) Supplemental History/ ROS: No acute events [...] Acute kidney injury superimposed on CKD ([facility]) Active Problems: Spontaneous Bacterial Peritonitis ([facility]): He remains afebrile and vital signs have [...] home lactulose and rifaximin Decompensated cirrhosis ([facility]): Appreciate hepatology consult. He has started [...] ascites NADIYA (acute kidney injury) on CKD ([facility]): Hepatorenal syndrome. Appreciate nephrology consult. S/p [...] another specialty or practice, other licensed professional (PT/OT/LICENSED OPTICAL DISPENSER/RT), or a non-medical community professional: Nephrology, Hepatology, [...] Strictly monitor urine output No Indication for ENTERTAINER & COMIC 3. Not a candidate for terlipressin per [...] Ignacio Queen MD Renal Fellow Pager # [phone] Chief Complaint No chief complaint on file. [...] concern for hepatorenal syndrome.` Patient came from [facility], paracentesis was performed yesterday on 10/05? Fluid pending for SBP analysis Histories he has a past medical history of Alcoholic cirrhosis of liver ([facility]), Alcoholic hepatitis, Esophageal varices ([facility]), Hepatorenal syndrome ([facility]), Hypertension, Other hyperlipidemia (07/26/2024), Renal cell carcinoma ([facility]), Thrombocytopenia ([facility]), and Thyroid disease. he has no past [...] PHOS -- < > 3.5 3.4 3.3 YIEV17G 7.1* -- -- -- -- < > = values in this interval not displayed. Lab Results Component Value Date IRON 81 10/08/2024 TIBC SEE COMMENT 10/08/2024 FERRITIN 706.9 (H) 10/08/2024 No results found for: [id number] , FOLATE Lab Results Component Value Date [...] CRUR No results found for: MICROALBUR , [id number] In addition to the above an extensive [...] 3.3 10/10/2024 Lab Results Component Value Date [id number] 7.1 (L) 10/08/2024 PLAN Continue IV albumin [...] 5:23 AM Colten Huertas MD, KISHOR LIN, FNKF metal fabricator helper Div. of Nephrology [facility] E-mail: [email or web address] This note was completely edited, written and [...] to follow pt while pt is at [facility]. * Jodi Ortiz PharmD - 10/10/2024 10:27 AM EDT Clinical Pharmacy Service: Vancomycin Consult Progress Note Patient has been transitioned off of vancomycin therapy per team notes and orders. Pharmacy will sign-off at this time, please do not hesitate to consult again as needs arise. Thank you for involving pharmacy in the care of this patient. Jodi Ortiz PharmD Clinical Nurse Discharge, Internal Medicine Preferred contact: [employer] Secure Chat Clinical Bexlidc-Sm-Tecq Pager: [phone] October 10, 2024 10:27 AM Laboratory Data [...] 10/07/2024 10:50 PM Giardia Cryptosporidium Antigens Final [id number] 10/07/2024 10:50 PM Ova and Parasite Comprehensive w/ Giardia/Crypto Final [id number] Feces 10/06/2024 1:04 AM #2 Blood culture-Peripheral site 2 Preliminary [id number] Peripheral 10/06/2024 1:04 AM #1 Blood culture-Peripheral site 1 Preliminary [id number] Peripheral Pharmacokinetics Lab Results (Last 7 days) Today 0523 Yesterday 0459 10/08 0536 [facility] Rdm 16.4 11.0 16.0 * Gerri Peterson MD - 10/10/2024 10:09 AM EDT [facility] HE[facility] PROGRESS NOTE Name: Julien Gilbert CSN: [id number] Consulted by: Fouzia Rene MD Reason for [...] nucleated cells, <2000 RBCs 10% Polynuclear, 90% Toombs nuc. Per OSH reports, ascitic fluid cultures [...] to achieving target HR. -cardiology consult for [facility] on Sunday - Transplant nephrology following for [...] original note were not included. [facility] Clinical Pharmacy Service: Vancomycin Monitoring Consult Julien [...] in sodium chloride 0.9 % 250 mL Gbxq2Smj (Completed) 1,500 mg Once 10/09/2024 10/09/2024 Admin Instructions: Contact pharmacy if there is a question/concern of whether vancomycin should begiven based on serum drug levels. Use Wcll0Bae Adapter - Mix Thoroughly Before Administration Route: Intravenous vancomycin (VANCOCIN) 1,500 mg in sodium chloride 0.9 % 250 mL Qacu4Ipl 1,500 mg Once 10/10/2024 10/11/2024 Admin Instructions: Contact pharmacy if there is a question/concern of whether vancomycin should begiven based on serum drug levels. Use Vxba2Vdu Adapter - Mix Thoroughly Before Administration Route: [...] in sodium chloride 0.9 % 250 mL Hyjy9Emd 1,500 mg 166.7 mL/hr 10/08/24 1259 New Bag vancomycin (VANCOCIN) 1,000 mg in sodium chloride 0.9 % 250 mL Umjc2Tdr 1,000 mg 250 mL/hr --Objective Data-- Vitals: [...] 53 53 54 Creatinine 2.85 2.89 3.04 [place] body weight: 86.8 kg (191 lb 5.7 oz) Adjusted ideal body weight: 99.9 kg (220 lb 3.5 oz) Estimated CrCl: ~35-45 mL/min --Cultures-- Microbiology Results Date and Time Order Name Sensitivity Status Organisms Specimen ID Source 10/07/2024 10:50 PM Giardia Cryptosporidium Antigens Final [id number] 10/07/2024 10:50 PM Ova and Parasite Comprehensive w/ Giardia/Crypto Final [id number] Feces 10/06/2024 1:04 AM #2 Blood culture-Peripheral site 2 Preliminary [id number] Peripheral 10/06/2024 1:04 AM #1 Blood culture-Peripheral site 1 Preliminary [id number] Peripheral --Vancomycin Concentrations-- Lab Results (Last 7 [...] for the consult. Jodi Ortiz PharmD Clinical Nurse Discharge, Internal Medicine Preferred contact: [employer] [facility] [place]-Nf-Rump Pager: [phone] October 10, 2024 9:13 AM * Eileen Schroeder MD, PhD - 10/10/2024 8:17 AM EDT Department of Internal Medicine Daily Progress Note Chief Complaint / Reason for Follow-Up Julien Gilbert is a 39 y.o. male on hospital day 5. The principal reason for today's follow up visit is Acute kidney injury superimposed on CKD ([facility]). DREW Pt was very conversational today. [...] at 10/08/2024 1:12 PM EDT US Duplex Gex-Agz-Cytzgmf Comp Final Result IMPRESSION: ABDOMEN 1. Cirrhotic [...] from outside facility. Will engage with them daily([phone]. Ask to speak to a tech) about [...] imaging has been performed at [facility]. -CT Head w/o contrast -Imaging showed [...] Order Questions: Select Supplement: Boost-1 kcal/ml supplement ([facility] only) Code Status: Full Code [...] reviewed the documentation by the medical steam hand and agree as documented. Any additions or clarifications are listed below. Daily plan was discussed with patient at bedside and questions addressed. Patient ID: Julien Gilbert is a 39 y.o. male currently admitted for Acute kidney injury superimposed on CKD ([facility]) Supplemental History/ ROS: No acute events [...] another specialty or practice, other licensed professional (PT/OT/LICENSED OPTICAL DISPENSER/RT), or a non-medical community professional: Nephrology, Hepatology, [...] Strictly monitor urine output No Indication for ENTERTAINER & COMIC Not a candidate for terlipressin per liver due to HE, liver and kidney failure, on midodrine tid. Considering para today, cardiac workup pre txp Liver transplant workup per GI/ Primary team, considering for SLK, seen by renal transplant team Thank you for allowing us to participate in this patient's care. Discussed with Consult Staff. Ignacio Queen MD Renal Fellow Pager # [phone] Chief Complaint No chief complaint on file. [...] concern for hepatorenal syndrome.` Patient came from [facility], paracentesis was performed yesterday on 10/05? [...] 9.0 9.3 PHOS -- 3.5 3.5 3.4 QHMZ81Y 7.1* -- -- -- Lab Results Component Value Date IRON 81 10/08/2024 TIBC SEE COMMENT 10/08/2024 FERRITIN 706.9 (H) 10/08/2024 No results found for: YXXBYIDL32 , FOLATE Lab Results Component Value Date [...] CRUR No results found for: MICROALBUR , [id number] In addition to the above an extensive [...] 3.4 10/09/2024 Lab Results Component Value Date HFDM42C 7.1 (L) 10/08/2024 PLAN Continue IV albumin [...] PM Colten Huertas MD, KISHOR LIN, CATHYF metal fabricator helper Div. of Nephrology [facility] E-mail: [email or web address] This note was completely edited, written and [...] Peterson MD - 10/09/2024 1:07 PM EDT [facility] HEPATOLOGY PROGRESS NOTE Name: Julien Gilbert CSN: [id number] Consulted by: Fouzia Rene MD Reason for [...] nucleated cells, <2000 RBCs 10% Polynuclear, 90% Toombs nuc. Fluid cultures reportedly grew gram + [...] original note were not included. [facility] Clinical Pharmacy Service: Vancomycin Monitoring Consult Julien [...] in sodium chloride 0.9 % 250 mL Xenz7Tua (Completed) 1,000 mg Once 10/08/2024 10/08/2024 Admin Instructions: Contact pharmacy if there is a question/concern of whether vancomycin should begiven based on serum drug levels. Use Gtvd8Zbq Adapter - Mix Thoroughly Before Administration Route: Intravenous vancomycin (VANCOCIN) 1,500 mg in sodium chloride 0.9 % 250 mL Ionm7Qra 1,500 mg Once 10/09/2024 10/10/2024 Admin Instructions: Contact pharmacy if there is a question/concern of whether vancomycin should begiven based on serum drug levels. Use Iwsz7Ext Adapter - Mix Thoroughly Before Administration Route: [...] in sodium chloride 0.9 % 250 mL Icog0Tom 1,000 mg 250 mL/hr 10/06/24 1413 New [...] 10/07/2024 10:50 PM Giardia Cryptosporidium Antigens Final [id number] 10/07/2024 10:50 PM Ova and Parasite Comprehensive w/ Giardia/Crypto Final [id number] Feces 10/06/2024 1:04 AM #2 Blood culture-Peripheral site 2 Preliminary [id number] Peripheral 10/06/2024 1:04 AM #1 Blood culture-Peripheral site 1 Preliminary [id number] Peripheral --Vancomycin Concentrations-- Lab Results (Last 7 [...] for the consult. Jodi Ortiz PharmD Clinical Nurse Discharge, Internal Medicine Preferred contact: [employer] [facility] Cebdkrz-Dx-Tarx Pager: [phone] October 09, 2024 8:29 AM * Eileen Schroeder MD, PhD - 10/09/2024 8:00 AM EDT Department of Internal Medicine Daily Progress Note Chief Complaint / Reason for Follow-Up Julien Gilbert is a 39 y.o. male on hospital day 4. The principal reason for today's follow up visit is Acute kidney injury superimposed on CKD ([facility]). KARENEON and father at bedside Pt [...] at 10/08/2024 1:12 PM EDT US Duplex Jji-Vxo-Lcvdohs Comp Final Result IMPRESSION: ABDOMEN 1. Cirrhotic [...] from outside facility. Will engage with them daily([phone]. Ask to speak to a tech) about [...] imaging has been performed at [facility]. -CT Head w/o contrast -Imaging showed [...] Order Questions: Select Supplement: Boost-1 kcal/ml supplement ([facility] only) Code Status: Full Code [...] reviewed the documentation by the medical steam hand and agree as documented. Any additions or clarifications are listed below. Daily plan was discussed with patient at bedside and questions addressed. Patient ID: Julien Gilbert is a 39 y.o. male currently admitted for Acute kidney injury superimposed on CKD ([facility]) Supplemental History/ ROS: No acute events overnight [...] Acute kidney injury superimposed on CKD ([facility]) Active Problems: Anemia: S/p 1 [...] another specialty or practice, other licensed professional (PT/OT/LICENSED OPTICAL DISPENSER/RT), or a non-medical community professional: Nephrology, Hepatology Labs reviewed (1 pt each): CBC, CMP, INR & other daily labs Review of notes from a different specialty or different practice: Nephrology, Anesthesiology hepatology, * Gerri Peterson MD - 10/08/2024 1:40 PM EDT [facility] HEPATOLOGY PROGRESS NOTE Name: Julien Gilbert CSN: [id number] Consulted by: Fouzia Rene MD Reason for [...] nucleated cells, <2000 RBCs 10% Polynuclear, 90% Toombs nuc. Fluid cultures reportedly grew gram + [...] disease (ESRD) patient in a hospital based, [facility] based, or home setting. -At the time [...] amyloidosis Methylmalonic aciduria Plan: At this time, Julienjohn Jain, MD potential candidate for a simultaneous liver-kidney [...] have discussed this plan with the office services coordinator and the liver transplant team. [...] original note were not included. [facility] Clinical Pharmacy Service: Vancomycin Monitoring Consult Julien [...] in sodium chloride 0.9 % 250 mL Hfkx5Zsz 1,000 mg Once 10/08/2024 10/09/2024 Admin Instructions: Contact pharmacy if there is a question/concern of whether vancomycin should begiven based on serum drug levels. Use Aydv0Zqn Adapter - Mix Thoroughly Before Administration Route: [...] 10/07/2024 10:50 PM Giardia Cryptosporidium Antigens Final [id number] 10/07/2024 10:50 PM Ova and Parasite Comprehensive w/ Giardia/Crypto In process [id number] Feces 10/06/2024 1:04 AM #2 Blood culture-Peripheral site 2 Preliminary [id number] Peripheral 10/06/2024 1:04 AM #1 Blood culture-Peripheral site 1 Preliminary [id number] Peripheral --Vancomycin Concentrations-- Lab Results (Last 7 [...] for the consult. Jodi Ortiz PharmD Clinical Nurse Discharge, Internal Medicine Preferred contact: [employer] [facility] Mskuwkm-Eq-Mury Pager: [phone] October 08, 2024 9:13 AM * Eileen [...] FREET4 0.74 09/03/2024 Diagnostic Studies US Duplex Jcp-Amo-Jxquepk Comp Final Result IMPRESSION: ABDOMEN 1. Cirrhotic [...] imaging has been performed at [facility]. -CT Head w/o contrast -Imaging showed [...] Order Questions: Select Supplement: Boost-1 kcal/ml supplement ([facility] only) Code Status: Full Code [...] reviewed the documentation by the medical steam hand and agree as documented. Any additions or [...] another specialty or practice, other licensed professional (PT/OT/LICENSED OPTICAL DISPENSER/RT), or a non-medical community professional: Nephrology, Hepatology [...] Strictly monitor urine output No Indication for ENTERTAINER & COMIC Not a candidate for terlipressin per liver due to HE, liver ans kidney failure, on midodrine tid Liver transplant workup per GI/ Primary team, considering for SLK Thank you for allowing us to participate in this patient's care. Discussed with Consult Staff. Ignacio Queen MD Renal Fellow Pager # [phone] Chief Complaint No chief complaint on file. [...] concern for hepatorenal syndrome.` Patient came from [facility], paracentesis was performed yesterday on 10/05? [...] TIBC , FERRITIN No results found for: [id number] , FOLATE Lab Results Component Value Date [...] <15 No results found for: MICROALBUR , [id number] In addition to the above an extensive [...] 4.0 10/08/2024 Lab Results Component Value Date AIZO75M 7.1 (L) 10/08/2024 PLAN Continue IV albumin [...] AM Colten Huertas MD, KISHOR LIN, FNKF metal fabricator helper Div. of Nephrology [facility] E-mail: [email or web address] This note was completely edited, written and [...] original note were not included. [facility] Clinical Pharmacy Service: Vancomycin Monitoring Consult Julien [...] AM #2 Blood culture-Peripheral site 2 Preliminary [id number] Peripheral 10/06/2024 1:04 AM #1 Blood culture-Peripheral site 1 Preliminary [id number] Peripheral --Vancomycin Concentrations-- Lab Results (Last 7 [...] for the consult. Jodi Ortiz PharmD Clinical Nurse Discharge, Internal Medicine Preferred contact: [employer] [facility] Nrkmzaw-Ob-Aoxc Pager: [phone] October 07, 2024 5:01 PM * Yamile Paige, PT - 10/07/2024 11:45 AM EDT Physical Therapy Initial Assessment and Discharge Name: Julien Gilbert : 1985 Attending Physician: Fouzia Rene MD Admission Diagnosis: [facility] Date: 10/07/2024 Room: 8142/U81 Reviewed Pertinent hospital [...] Peterson MD - 10/07/2024 11:33 AM EDT [facility] HEPATOLOGY PROGRESS NOTE Name: Julien Gilbert CSN: [id number] Consulted by: Fouzia Rene MD Reason for [...] nucleated cells, <2000 RBCs 10% Polynuclear, 90% Toombs nuc. Fluid cultures reportedly grewgram + rods. [...] liver selection meeting and clearance by social security specialist. Please order CT cardiac coronary evaluation, transplant [...] Strictly monitor urine output No Indication for ENTERTAINER & COMIC Liver transplant workup per GI/ Primary team Thank you for allowing us to participate in this patient's care. Discussed with Consult Staff. Ignacio Queen MD Renal Fellow Pager # [phone] Chief Complaint No chief complaint on file. [...] concern for hepatorenal syndrome.` Patient came from [facility], paracentesis was performed yesterday on 10/05? [...] Laboratory Data and Imaging Recent Labs 10/06/24 04010/06/24 0737 10/07/24 0600 WBC 7.6 5.6 3.3* [...] 3.4* 3.6 3.6 3.6 Recent Labs 10/06/24 04010/06/24 0737 10/07/24 0600 CALCIUM 9.2 9.5 9.1 PHOS 5.3* -- 4.2 No results found for: IRON , TIBC , FERRITIN No results found for: BJYACQII80 , FOLATE Lab Results Component Value Date [...] <15 No results found for: MICROALBUR , [id number] In addition to the above an extensive [...] history of Alcoholic cirrhosis of liver ([facility]), Alcoholic hepatitis, Esophageal varices (CMS-HCC), Hepatorenal [...] PHOS 4.2 10/07/2024 No results found for: NYCH29K PLAN Continue IV albumin Monitor renal panel [...] AM Colten Huertas MD, KISHOR LIN, PETE metal fabricator helper Div. of Nephrology [facility] E-mail: [email or web address] * Carmen Bernal, OT - 10/07/2024 11:09 AM EDT Occupational Therapy Initial Assessment and Discharge Name: Julien Gilbert : 1985 Attending Physician: Fouzia Reen MD Admission Diagnosis: AMS Date: 10/07/2024 Room: [...] at 10/06/2024 2:33 AM EDT US Duplex Azl-Njf-Ylvpmbi Comp (Results Pending) US Abdomen Complete (Results [...] imaging has been performed at [facility]. -CT Head w/o contrast -Imaging showed [...] Order Questions: Select Supplement: Boost-1 kcal/ml supplement ([facility] only) Code Status: Full Code [...] reviewed the documentation by the medical steam hand and agree as documented. Any additions or [...] lactulose and rifaximin Spontaneous Bacterial Peritonitis ([facility]): Cultures from OSH are growing gram- positive organisms.He is on vancomycin and ceftriaxone for now. Will follow-up on speciation and sensitivities. For now, he is afebrile and his white counts have trended down and mental status is improving. Decompensated cirrhosis ([facility]): Appreciate hepatology consult. He has started his transplant evaluation as an outpatient. We will follow-up with hepatology to discuss any inpatient testing that may need to be needed. - MELD labs daily - Continue home regimen with ursodiol, rifaximin and lactulose NADIYA (acute kidney injury) ([facility]): Appreciate nephrology consult. Likely has [...] for pain. Continue to monitor. Thrombocytopenia ([facility]) Renal mass, left CKD (chronic kidney disease) stage 4, GFR 15-29 ml/min ([facility]) Metabolic acidosis with normal anion gap and [...] another specialty or practice, other licensed professional (PT/OT/LICENSED OPTICAL DISPENSER/RT), or a non-medical community professional: Nephrology, Hepatology Labs reviewed (1 pt each): CMP, CBC Test results reviewed (1 pt each): CXR, Head CT Review of notes from a different specialty or different practice: Nephrology, hepatology Use of parenteral controlled substances * Kiet Gardiner, PharmD - 10/06/2024 1:07 PM EDT Images from the original note were not included. [facility] Clinical Pharmacy Service: Vancomycin Monitoring Consult Julien [...] AM #2 Blood culture-Peripheral site 2 Preliminary [id number] Peripheral 10/06/2024 1:04 AM #1 Blood culture-Peripheral site 1 Preliminary [id number] Peripheral --Vancomycin Concentrations-- Lab Results (Last 7 [...] / \ 7.08 / 57 \ / / \ / 158 \ PT/INR/PTT - [...] US Retroperitoneal complete (Results Pending) US Duplex Xea-Lur-Dtungrl Comp (Results Pending) CT Head WO contrast [...] Hospital Medicine Attending Supervision Note [facility] Julien Gilbert was seen 10/06/24 on [...] Lerner MD - 10/05/2024 2:42 PM EDT [facility] Department of Medicine TRANSFER CALL NOTE Location [facility] ED History of Present Illness [...] nearest ED, with plan to transfer to [facility] if needing admission. In the [...] Studies: Na 129 K 4.2 Cl 101 Wdikqc21 BUN 62 (up from baseline) Cr 3.6 [...] Quan MD - 10/14/2024 1:10 PM EDT [facility] PRE-SEDATION ASSESSMENT, HISTORY & PHYSICAL Date: [...] Neuro: AOx3 AUC For Cath Indication(s) for Vacuum Furnace Operator Visit: Visit Indicators: Suspected CAD 2. Chest Pain Symptom Assessment: Asymptomatic 3. Heart Failure: Yes Class II 4. CHSA Clinical Frailty Scale: Mildly Frail Sedation Plan: Moderate Sedation with Local Anesthesia Antibiotic prophylaxis is not indicated. Mani Quan Interventional Family Sociologist Pager: [phone] [1] Patient Active Problem List Diagnosis Decompensated [...] per rectum) SBP (spontaneous bacterial peritonitis) ([facility]) C Diff Diarrhea C. difficile diarrhea Neck pain with history of cervical spinal surgery Cosigned by Irving Matta MD at 10/16/2024 10:54 AM EDT Associated attestation - Irving Matta MD - 10/16/2024 10:54 AM EDT Agree * Gerri Peterson MD - 10/10/2024 10:05 AM EDT [facility] PRE-SEDATION ASSESSMENT, HISTORY & PHYSICAL Date: [...] Active Problem List Diagnosis Decompensated cirrhosis ([facility]) Acute kidney injury superimposed on CKD ([facility]) Alcohol use disorder Metabolic encephalopathy Hypertension Other hyperlipidemia Thrombocytopenia ([facility]) Renal mass, left Abdominal pain Hypokalemia CKD (chronic kidney disease) stage 4, GFR 15-29 ml/min ([facility]) Metabolic acidosis with normal anion gap and bicarbonate losses GERD (gastroesophageal reflux disease) Hypothyroidism Itching Anemia BRBPR (bright red blood per rectum) SBP (spontaneous bacterial peritonitis) ([facility]) C Diff Diarrhea C. difficile diarrhea Neck [...] Low Risk (07/09/2024) Received from [facility] Er Overall Financial Resource Strain (CARDIA) Difficulty [...] No Physical Activity: Unknown (07/14/2024) Received from [facility] Exercise Vital Sign Days of Exercise per Week: Patient unable to answer Minutes of Exercise per Session: Not on file Stress: Patient Unable To Answer (07/14/2024) Received from [employer] [facility] - Occupational Stress Questionnaire Feeling of Stress : Patient unable to answer Social Connections: Patient Unable To Answer (07/14/2024) Received from [facility] Social Connection and Isolation Panel [NHANES] Frequency of Communication with Friends and Family: Patient unable to answer Frequency of Social Gatherings with Friends and Family: Patient unable to answer Attends Sabianism Services: Patient unable to answer Active Member [...] 1305 levothyroxine 75 mcg QAM AC Bisi Hernandez, DO 75 mcg at 10/09/24 0801 methocarbamoL 500 mg TID Eileen Schroeder MD, PhD 500 mg at 10/09/24 1305 metoprolol tartrate metoprolol tartrate 2.5 mg Q5 Min PRN Tonya Henriquez MD midodrine 10 mg TID Chari Vanegas MD 10 mg at 10/09/24 1308 oxyCODONE 2.5 mg Q6H PRN Chari aVnegas MD Or oxyCODONE 5 mg Q6H PRN Chari Vanegas MD 5 mg at 10/09/24 1418 pantoprazole 40 mg QAM AC Bisi Hernandez, DO 40 mg at 10/09/24 0802 potassium [...] values in this interval not displayed. Imaging: @CYNISQB14TH@ I have personally reviewed the imaging and have noted the following: Large recanalized umbilical vein Perihilar varices Replaced right hepatic artery Splenomegaly Spontaneous splenorenal shunt Large volume ascites, No portal vein thrombosis Assessment/Plan: A 39 y.o. male with ETOH decompensated by ascites, hepatic encephalopathy,bleeding esophageal Varices. Use and allocation of SCD, RADIOLOGY AIDE, DCD and LDLT allografts discussed in detail. [...] from surgery (5%). I also explained the fish and wildlife technician risks of transplantation and immunosuppression including viral infection and cancer both solid organand lymphoma. Kemar Sahni MD, Fellow, Multiorgan Abdominal Transplant Surgery. [facility]. 10/09/2024 3:16 PM [1] Allergies [...] Ortiz MD - 10/06/2024 12:00 AM EDT [facility] Internal Medicine - History and [...] taken to Radiology overnight for imaging upload. [facility] performed a bedside paracentesis and sent studies for SBP analysis. [facility] to see if labs have resulted. Review of Systems 14 pt ROS conducted and negative aside from that mentioned in above HPI Past Medical and Social History Lives in [place], [place] at bedside Notes that the patient [...] OSH Repeat labs pending on admission to [facility] Assessment & Plan Julien Gilbert [...] Hospital Medicine Attending Supervision Note [facility] Julien Gilbert was seen 10/06/24 on [...] at OSH for K 4.2 Cl 101 Hqnhlw11 BUN 62 (up from baseline) Cr 3.6 [...] another specialty or practice, other licensed professional (PT/OT/LICENSED OPTICAL DISPENSER/RT), or a non-medical community professional: ed team [...] ANGIE BLANCHARD MD Attending Physician Division of [facility] Medicine Department of Internal Medicine Pager ID: [phone] 6:04 AM, 10/06/2024 documented in this encounter [...] of findings/procedures, which can be located in [facility] Procedures (or [facility] Imaging) Tabs. Please call with any questions. BAKARI WAHL CNP Vascular & Interventional Radiology 10/10/2024,1:55 PM [facility]: [phone] * Lino Soto MD - 10/10/2024 12:06 PM EDT EGD Brief Op Note Julien Gilbert 10/05/2024 - 10/10/2024 Pre-op Diagnosis: Alcoholic cirrhosis of liver with ascites (CMS-HCC) [K70.31] Post-op Diagnosis: Portal gastropathy, Medium size, non-bleeding esophageal varices Procedure(s): EGD Surgeon(s): Lino Soto MD Anesthesia: MAC (Monitor Anesthesia Care) Staff: Fellow: Gerri Peterson MD Endoscopy Nurse: Kandice Castaneda RN Principal Technologist: Diana Kemp Estimated Blood Loss: Minimal Specimens: Drains: There were no complications unless listed below. LINO SOTO MD Date: 10/10/2024 Time: 12:18 PM * Lino Soto MD - 10/10/2024 11:48 AM EDT [id number] Procedure Date: 10/10/2024 11:48 AM Patient Name: Julien Gilbert Date of : 1985 Admit Type: Inpatient Age: 39 Gender: Male Note Status: Finalized Attending MD: Lino Soto MD, [id number] Procedure: Upper GI endoscopy Indications: Gastroesopahgeal variceal [...] verified by the physician, the nurse, the market research analyst and the pharmacy technician program director in the pre-procedure area in the procedure [...] to hypotension Procedure Code(s): --- Professional --- 69943, GC, Esophagogastroduodenoscopy, flexible, transoral; diagnostic, including collection of specimen(s) by brushing or washing, when performed (separate procedure) Diagnosis Code(s): --- Professional --- I85.00, Esophageal varices without bleeding K76.6, Portal hypertension K31.89, Other diseases of stomach and duodenum CPT copyright 2022 [employer]. All rights reserved. The codes documented in this report are preliminary and upon property worker review may be revised to meet current [...] In: 12:10:16 PM Scope Out: 12:17:[address] [place] [address], [facility] * Gill Le RN - 10/09/2024 [...] of pain in his accessory muscles with breathing.D. S. Alali is here with the patient, which was [...] this time. 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 Describes significant anxiety that occasionally limits his ability to drive, and stated he has to trap puller occasionally to collect himself, thought denied [...] need for sleep. Has not been on [facility] since stopping the cymbalta. Reports [...] to his health decline. He was raised Yazidi and denied current engagement in any community [...] Size: Pulse: 88 84 85 88 Resp: Temp: 97.3 ??F (36.3 ??C) 98.1 ??F [...] or other abnormalities Cognition/Memory: short term and fish and wildlife technician memory intact. Attention and concentration: is not [...] from the original note were not included. [facility] General Cardiology Consult Note Referring [...] at baseline or with provocation, shows no owxnl-ff-jcwn atrial level shunt. - Pulmonary arteries: Systolic [...] 10/13/24, please keep NPO on 10/12/24 at [place] Risks and benefits of new therapies added and new invasive and non-invasive procedures/diagnostic testing planned discussed with and understood by the patient/family who agree with the above plan. Plan discussed with the attending physician Dr. Blanco. Recommendations are preliminary until this note is co- signed by the attending. Follow up appointments with Cardiology can be scheduled by calling [phone]. Thank you for the opportunity to participate in this patient's care. Please call orpage with any questions. Leonor Garcia MD Family Sociologist I have personally seen, examined, reviewed all [...] 0659 10/11/24 0700 - 10/12/24 0659 Shift 6923-5728 0732-1460 24 Hour Total 7497-2034 4094-7229 0786-0595 24 Hour Total INTAKE P.O. 9589 274 9035 P.O. 4754 734 2347 Boost (mL) - [facility] only 240 240 I.V.(mL/kg) 450(3.8) [...] (See Comments) Became Manic * Bakari Wahl CNP - 10/10/2024 10:07 AM EDT Interventional Radiology [...] CNP Vascular & Interventional Radiology 10/10/2024,1:54 PM [facility]: [phone]([phone]) [1] Social History Tobacco Use Smoking Status [...] EDTAssociated Order(s): IP CONSULT TO INFECTIOUS DISEASES [facility] DEPARTMENT OF INFECTIOUS DISEASE INITIAL NOTE Referring Physician: Fouzia Rene MD Consult Attending: Daria Garcia Patient: Julien Gilbert CSN: [id number] Reason for Consult: CC: Abx management History [...] HE. He was born and raised in [facility] . No travel to the [facility]. 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 [...] Low Risk (07/09/2024) Received from [facility] Er Overall Financial Resource Strain (CARDIA) Difficulty [...] No Physical Activity: Unknown (07/14/2024) Received from [facility] Exercise Vital Sign Days of Exercise per Week: Patient unable to answer Minutes of Exercise per Session: Not on file Stress: Patient Unable To Answer (07/14/2024) Received from [facility] [place] [facility] Occupational Health - Occupational Stress Questionnaire Feeling of Stress : Patient unable to answer Social Connections: Patient Unable To Answer (07/14/2024) Received from [facility] Social Connection and Isolation Panel [NHANES] Frequency of Communication with Friends and Family: Patient unable to answer Frequency of Social Gatherings with Friends and Family: Patient unable to answer Attends Sabianism Services: Patient unable to answer Active Member [...] Qty: 60 tablet, Refills: 0 Comments: [facility] in [place] [address] sodium bicarbonate 650 MG tablet Take 2 [...] Aphasia [R47.01] 10/06/2024 SBP (spontaneous bacterial peritonitis) ([facility]) [K65.2] 09/08/2024 Metabolic acidosis with normal anion gap and bicarbonate losses [E87.20] 09/03/2024 CKD (chronic kidney disease) stage 4, GFR 15-29 ml/min ([facility]) [N18.4] 09/03/2024 GERD (gastroesophageal reflux disease) [K21.9] 09/03/2024 Renal mass, left [N28.89] 08/18/2024 Thrombocytopenia (CMS-HCC) [D69.6] Decompensated cirrhosis (CMS-HCC) [K72.90, K74.60] 07/25/2024 NADIYA (acute kidney injury) (CMS-HCC) [N17.9] 07/25/2024 Resolved Hospital Problems No resolved [...] Signed: Daria Garcia MD 10/08/2024, 9:46 AM [phone] [1] Allergies Allergen Reactions Adhesive Itching and [...] Low Risk (07/09/2024) Received from [facility] Overall Financial Resource Strain (CARDIA) Difficulty [...] No Physical Activity: Unknown (07/14/2024) Received from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 10/15/2024 6:45 AM EDT [facility] Phosphorus 3.9 2.1 - 4.7 mg/dL 10/15/2024 6:45 AM EDT [facility] Albumin 3.2(L) 3.5 - 5.7 g/dL 10/15/2024 6:45 AM EDT [facility] Osmolality, Calculated 297 278 - 305 mOsm/kg 10/15/2024 6:45 AM EDT [facility] EGFR 27 10/15/2024 6:45 AM EDT [facility] Comment:As of 2021, the [...] PhD LAB BLOOD ORDERABLES Final Result [facility] [address] * (ABNORMAL) CBC (10/15/2024 6:08 AM EDT) WBC 4.6 3.8 - 10.8 10E3/uL 10/15/2024 6:51 AM EDT [facility] RBC 1.94(L) 4.20 - 5.80 10E6/uL 10/15/2024 6:51 AM EDT [facility] Hemoglobin 7.1(L) 13.2 - 17.1 g/dL 10/15/2024 6:51 AM EDT [facility] Hematocrit 19.6(L) 38.5 - 50.0 % 10/15/2024 6:51 AM EDT [facility] MCV 100.8(H) 80.0 - 100.0 fL 10/15/2024 6:51 AM EDT [facility] MCH 36.7(H) 27.0 - 33.0 pg 10/15/2024 6:51 AM EDT [facility] MCHC 36.4(H) 32.0 - 36.0 g/dL 10/15/2024 6:51 AM EDT [facility] RDW 17.3(H) 11.0 - 15.0 % 10/15/2024 6:51 AM EDT [facility] Platelets 34(L) 140 - 400 10E3/uL 10/15/2024 6:51 AM EDT [facility] Comment:Specimen checked for clots. None detected. MPV 8.7 7.5 - 11.5 fL 10/15/2024 6:51 AM EDT [facility] Whole Blood 10/15/2024 6:08 AM EDT 10/15/2024 6:17 AM EDT us Eileen Schroeder MD, PhD LAB BLOOD ORDERABLES Final Result [facility] [address] [id number], [facility] * PRA-HLA Ab Screen (Cytotoxic) (10/15/2024 6:08 AM EDT) Pathologist [facility] The request and specimen(s) for this test have been received and transported to the [facility] [place] at [address] [place] [address]. The [facility] will report results directly to the client. 10/15/2024 6:42 AM EDT [facility] Comment:The request and spec imen(s) for this test have been received and transported to the [facility] [place] at [address] [place] [address]. The [facility] will report results directly to the client. Serum 10/15/2024 6:08 AM EDT 10/15/2024 6:42 AM EDT us Cosmo Pacheco MD LAB BLOOD ORDERABLES Final Resul t [facility] [address] * LEFT HEART CATH (10/14/2024 2:09 PM EDT) 10/14/2024 11:4 7 AM EDT Narrative [facility] - 10/14/2024 9:27 PM EDT *[facility]* Cardiac Vacuum Furnace Operator [address] [address] CATHETERIZATION LAB STUDY Patient: Julien Gilbert Age: [...] manner. 3. Right radial artery access. A [id number] Glidesheath - Slender - .021 sheath was [...] + + !LV pressure s/d, ed !, , dP/ya=8603gw Hg/s! + + + !Aortic pressure s/d (m)!106/58 (75) ! + + + ATTESTATION: Dr. Matta was present for the entire procedure. Dr. Jay Quan was the initial author of this report. Prepared and electronically signed by Irving Matta MD [id number] Procedure Note Irving Matta MD - 10/14/2024 *[facility]* Cardiac Vacuum Furnace Operator [address] [place], [place] [address] CATHETERIZATION LAB STUDY Patient: Julien Gilbert Age: [...] manner. 3. Right radial artery access. A [id number] Glidesheath - Slender - .021sheath was advanced [...] complications. Contrast: Omnipaque 350 25ml (total dose). Bkqixgkyd192 125ml (wasted). Radiation: Fluoroscopy time: 15min. Total [...] + !LV pressure s/d, ed !112/, 22, dP/pj=4107ze Hg/s! + + + !Aortic pressure s/d (m)!106/58 (75) ! + + + ATTESTATION: Dr. Matta was present for the entire procedure. Dr. Jay Quan wasthe initial author of this report. Prepared and electronically signed by Irving Matta MD [id number]:50 [place] [id number] Final Result Performing Organization Address [facility] de Phone Number [facility] * Transfuse Fresh Frozen Plasma Transfusion Rate: Per dept routine (10/14/2024 2:08 PM EDT) us Eleazar Nguyễn MD NURSING TREATMENT ORDER PAL - BLOOD ADMIN Final Result Performing Organization Address [facility] de Phone Number EXTERNAL * Transfuse Fresh Frozen Plasma Transfusion Rate: Per dept routine, 1 Units (10/14/2024 2:08 PM EDT) us Eleazar Nguyễn MD NURSING TREATMENT ORDER PAL - BLOOD ADMIN Final Result Performing Organization Address [facility] de Phone Number EXTERNAL * Transfuse Platelets Transfusion Rate: Per dept routine (10/14/2024 12:43 PM EDT) us Eleazar Nguyễn MD NURSING TREATMENT ORDER PAL - BLOOD ADMIN Final Result Performing Organization Address [facility] de Phone Number EXTERNAL * Transfuse Platelets Transfusion Rate: Per dept routine, 1 Units (10/14/2024 12:43 PM EDT) Eleazar Nguyễn MD NURSING TREATMENT ORDER PAL - BLOOD ADMIN Final Result EXTERNAL * Antibody Screen (10/14/2024 8:21 AM EDT) Antibody Screen Negative 10/14/2024 9:11 AM EDT [facility] Blood 10/14/2024 8:21 AM EDT 10/14/2024 8:33 AM EDT Narrative [facility] - 10/14/2024 9:26 AM EDT Testing performed by [facility] Transfusion Service us Eleazar Nguyễn MD BLOOD BANK TEST ORDERAB LES Final Result Performing Organization Address City/[facility]/ZIP Co de Phone Number [facility] [address] * ABO/Rh (10/14/2024 8:21 AM EDT) ABO Grouping O 10/14/2024 8:55 AM EDT [facility] Rh Type Positive 10/14/2024 8:55 AM EDT [facility] Blood 10/14/2024 8:21 AM EDT 10/14/2024 8:33 AM EDT us Eleazar Nguyễn MD BLOOD BANK TEST ORDERAB LES Final Result Performing Organization Address City/[facility] Co de Phone Number [facility] [address] * (ABNORMAL) Protime-INR (10/14/2024 2:53 AM EDT) Protime 23.8(H) 12.1 - 15.1 seconds 10/14/2024 4:34 AM EDT [facility] INR 2.1(H) 0.9 - 1.1 10/14/2024 4:34 AM EDT [facility] Comment: RECOMMENDED THERAPEUTIC RANGES USING INR : Stable oral anticoagulant therapy: 2.0 - 3.0 Mechanical prosthetic heart valve: 2.5 - 3.5 Recurrent acute myocardial infarction: 2.5 - 3.5 Plasma 10/14/2024 2:53 AM EDT 10/14/2024 4:16 AM EDT us Eileen Schroeder MD, PhD LAB BLOOD ORDERABLES Final Result Performing Organization Address [facility] Co de Phone Number [facility] [address] * (ABNORMAL) Hepatic Function Panel (10/14/2024 2:53 AM EDT) Total Bilirubin 7.2(H) 0.0 - 1.5 mg/dL 10/14/2024 4:45 AM EDT [facility] Bilirubin, Direct 3.86(H) 0.00 - 0.40 mg/dL 10/14/2024 4:45 AM EDT [facility] AST 41(H) 13 - 39 U/L 10/14/2024 4:45 AM EDT [facility] ALT 22 7 - 52 U/L 10/14/2024 4:45 AM EDT [facility] Alkaline Phosphatase 119 36 - 125 U/L 10/14/2024 4:45 AM EDT [facility] Total Protein 4.6(L) 6.4 - 8.9 g/dL 10/14/2024 4:45 AM EDT [facility] Albumin 3.3(L) 3.5 - 5.7 g/dL 10/14/2024 4:45 AM EDT [facility] Bilirubin, Indirect 3.34(H) 0.00 - 1.10 mg/dL 10/14/2024 4:45 AM EDT [facility] Plasma 10/14/2024 2:53 AM EDT 10/14/2024 4:16 AM EDT us Eileen Schroeder MD, PhD LAB BLOOD ORDERABLES Final Result Performing Organization Address [facility] Co de Phone Number [facility] [address] [facility]. [address] * Magnesium (10/14/2024 2:53 AM EDT) Magnesium 1.9 1.5 - 2.5 mg/dL 10/14/2024 4:45 AM EDT [facility] Plasma 10/14/2024 2:53 AM EDT 10/14/2024 4:16 AM EDT us Eileen Schroeder MD, PhD LAB BLOOD ORDERABLES Final Result [facility] [address] [place], [place] [address] * (ABNORMAL) Renal Function Panel w/EGFR (10/14/2024 2:53 AM EDT) Sodium 136 133 - 146 mmol/L 10/14/2024 4:45 AM EDT [facility] Potassium 3.5 3.5 - 5.3 mmol/L 10/14/2024 4:45 AM EDT [facility] Chloride 107 98 - 110 mmol/L 10/14/2024 4:45 AM EDT [facility] CO2 16(L) 21 - 33 mmol/L 10/14/2024 4:45 AM EDT [facility] Anion Gap 13 3 - 16 mmol/L 10/14/2024 4:45 AM EDT [facility] BUN 55(H) 7 - 25 mg/dL 10/14/2024 4:45 AM EDT [facility] Creatinine 3.01(H) 0.60 - 1.30 mg/dL 10/14/2024 4:45 AM EDT [facility] Glucose 95 70 - 100 mg/dL 10/14/2024 4:45 AM EDT [facility] Calcium 8.5(L) 8.6 - 10.3 mg/dL 10/14/2024 4:45 AM EDT [facility] Phosphorus 4.4 2.1 - 4.7 mg/dL 10/14/2024 4:45 AM EDT [facility] Albumin 3.3(L) 3.5 - 5.7 g/dL 10/14/2024 4:45 AM EDT [facility] Osmolality, Calculated 297 278 - 305 mOsm/kg 10/14/2024 4:45 AM EDT [facility] EGFR 26 10/14/2024 4:45 AM EDT [facility] Comment:As of 2021, the [...] PhD LAB BLOOD ORDERABLES Final Result [facility] [address] * (ABNORMAL) CBC (10/14/2024 2:53 AM EDT) WBC 5.5 3.8 - 10.8 10E3/uL 10/14/2024 5:00 AM EDT [facility] RBC 2.09(L) 4.20 - 5.80 10E6/uL 10/14/2024 5:00 AM EDT [facility] Hemoglobin 7.6(L) 13.2 - 17.1 g/dL 10/14/2024 5:00 AM EDT [facility] Hematocrit 21.3(L) 38.5 - 50.0 % 10/14/2024 5:00 AM EDT [facility] MCV 101.7(H) 80.0 - 100.0 fL 10/14/2024 5:00 AM EDT [facility] MCH 36.3(H) 27.0 - 33.0 pg 10/14/2024 5:00 AM EDT [facility] MCHC 35.7 32.0 - 36.0 g/dL 10/14/2024 5:00 AM EDT [facility] RDW 17.6(H) 11.0 - 15.0 % 10/14/2024 5:00 AM EDT [facility] Platelets 35(L) 140 - 400 10E3/uL 10/14/2024 5:00 AM EDT [facility] Comment: Specimen checked for clots. None detected. Slide Reviewed for PLT Clumps. None Seen. MPV 8.5 7.5 - 11.5 fL 10/14/2024 5:00 AM EDT [facility] Whole Blood 10/14/2024 2:53 AM EDT 10/14/2024 4:17 AM EDT us Eileen Schroeder MD, PhD LAB BLOOD ORDERABLES Final Result [facility] [address] [place] [address], [facility] * Cardiac Cath Documents Scan (10/14/2024 2:06 [...] mL of GADOBUTROL 1 MMOL/ML [facility] ([facility]) administered intravenously COMPARISON: CT 09/03/2024. [...] mL of GADOBUTROL 1 MMOL/ML [facility] ([facility])administered intravenously COMPARISON: CT 09/03/2024. Ultrasound [...] PhD LAB BLOOD ORDERABLES Final Result [facility] [address] [place] [address], [facility] * (ABNORMAL) Hepatic Function Panel (10/13/2024 5:35 AM EDT) Total Bilirubin 6.5(H) 0.0 - 1.5 mg/dL 10/13/2024 6:30 AM EDT [facility] Bilirubin, Direct 3.53(H) 0.00 - 0.40 mg/dL 10/13/2024 6:30 AM EDT [facility] AST 42(H) 13 - 39 U/L 10/13/2024 6:30 AM EDT [facility] ALT 19 7 - 52 U/L 10/13/2024 6:30 AM EDT [facility] Alkaline Phosphatase 108 36 - 125 U/L 10/13/2024 6:30 AM EDT [facility] Total Protein 4.4(L) 6.4 - 8.9 g/dL 10/13/2024 6:30 AM EDT [facility] Albumin 3.1(L) 3.5 - 5.7 g/dL 10/13/2024 6:30 AM EDT [facility] Bilirubin, Indirect 2.97(H) 0.00 - 1.10 mg/dL 10/13/2024 6:30 AM EDT [facility] Plasma 10/13/2024 5:35 AM EDT 10/13/2024 5:52 AM EDT us Eileen Schroeder MD, PhD LAB BLOOD ORDERABLES Final Result [facility] [address] * Magnesium (10/13/2024 5:35 AM EDT) Magnesium 2.0 1.5 - 2.5 mg/dL 10/13/2024 6:30 AM EDT [facility] Plasma 10/13/2024 5:35 AM EDT 10/13/2024 5:52 AM EDT Eileen Schroeder MD, PhD LAB BLOOD ORDERABLES Final Result Performing Organization Address [facility] Co de Phone Number [facility] [address] * (ABNORMAL) Renal Function Panel w/EGFR (10/13/2024 5:35 AM EDT) Sodium 134 133 - 146 mmol/L 10/13/2024 6:30 AM EDT [facility] Potassium 3.7 3.5 - 5.3 mmol/L 10/13/2024 6:30 AM EDT [facility] Chloride 109 98 - 110 mmol/L 10/13/2024 6:30 AM EDT [facility] CO2 14(L) 21 - 33 mmol/L 10/13/2024 6:30 AM EDT [facility] Anion Gap 11 3 - 16 mmol/L 10/13/2024 6:30 AM EDT [facility] BUN 54(H) 7 - 25 mg/dL 10/13/2024 6:30 AM EDT [facility] Creatinine 2.99(H) 0.60 - 1.30 mg/dL 10/13/2024 6:30 AM EDT [facility] Glucose 116(H) 70 - 100 mg/dL 10/13/2024 6:30 AM EDT [facility] Calcium 8.3(L) 8.6 - 10.3 mg/dL 10/13/2024 6:30 AM EDT [facility] Phosphorus 4.5 2.1 - 4.7 mg/dL 10/13/2024 6:30 AM EDT [facility] Albumin 3.1(L) 3.5 - 5.7 g/dL 10/13/2024 6:30 AM EDT [facility] Osmolality, Calculated 294 278 - 305 mOsm/kg 10/13/2024 6:30 AM EDT [facility] EGFR 26 10/13/2024 6:30 AM EDT [facility] Comment:As of 2021, the [...] PhD LAB BLOOD ORDERABLES Final Result [facility] [address] [id number] * (ABNORMAL) CBC (10/13/2024 5:35 AM EDT) WBC 4.7 3.8 - 10.8 10E3/uL 10/13/2024 6:22 AM EDT [facility] RBC 2.06(L) 4.20 - 5.80 10E6/uL 10/13/2024 6:22 AM EDT [facility] Hemoglobin 7.4(L) 13.2 - 17.1 g/dL 10/13/2024 6:22 AM EDT [facility] Hematocrit 21.7(L) 38.5 - 50.0 % 10/13/2024 6:22 AM EDT [facility] MCV 105.4(H) 80.0 - 100.0 fL 10/13/2024 6:22 AM EDT [facility] MCH 35.9(H) 27.0 - 33.0 pg 10/13/2024 6:22 AM EDT [facility] MCHC 34.0 32.0 - 36.0 g/dL 10/13/2024 6:22 AM EDT [facility] RDW 18.5(H) 11.0 - 15.0 % 10/13/2024 6:22 AM EDT [facility] Platelets 35(L) 140 - 400 10E3/uL 10/13/2024 6:22 AM EDT [facility] Comment: CNV Specimen checked for clots. None detected. MPV 8.4 7.5 - 11.5 fL 10/13/2024 6:22 AM EDT [facility] Whole Blood 10/13/2024 5:35 AM EDT 10/13/2024 5:53 AM EDT us Eileen Schroeder MD, PhD LAB BLOOD ORDERABLES Final Result [facility] [address] [facility]. [address] * (ABNORMAL) Ammonia (10/13/2024 5:35 AM EDT) Ammonia 203(HH) 27 - 90 ug/dL 10/13/2024 7:16 AM EDT [facility] Comment: HEMOLYSIS EVIDENT. RESULTS MAY BE INFLUENCED. Critical Result [id number]_[id number] Called to and read back by: KEY MELO RN at: 10/13/2024 07:15:55 by:NISREEN Plasma 10/13/2024 5:35 AM EDT 10/13/2024 6:19 AM EDT Ellis Mays DO LAB BLOOD ORDERABLES Final Resul t [facility] [address] [facility]. [address] * CARISA Rhythm Strip - Scan (10/12/2024 10:30 PM EDT) us Scanning [employer] SCAN DOCS - NO RESULTS Final Res ult * (ABNORMAL) Protime-INR (10/12/2024 5:44 AM EDT) Protime 25.7(H) 12.1 - 15.1 seconds 10/12/2024 6:12 AM EDT [facility] INR 2.3(H) 0.9 - 1.1 10/12/2024 6:12 AM EDT [facility] Comment: RECOMMENDED THERAPEUTIC RANGES USING INR : Stable oral anticoagulant therapy: 2.0 - 3.0 Mechanical prosthetic heart valve: 2.5 - 3.5 Recurrent acute myocardial infarction: 2.5 - 3.5 Plasma 10/12/2024 5:44 AM EDT 10/12/2024 5:58 AM EDT us Eileen Schroeder MD, PhD LAB BLOOD ORDERABLES Final Result Performing Organization Address [facility] Co de Phone Number [facility] [address] * (ABNORMAL) Hepatic Function Panel (10/12/2024 5:44 AM EDT) Total Bilirubin 6.5(H) 0.0 - 1.5 mg/dL 10/12/2024 6:29 AM EDT [facility] Bilirubin, Direct 3.64(H) 0.00 - 0.40 mg/dL 10/12/2024 6:29 AM EDT [facility] AST 40(H) 13 - 39 U/L 10/12/2024 6:29 AM EDT [facility] ALT 19 7 - 52 U/L 10/12/2024 6:29 AM EDT [facility] Alkaline Phosphatase 99 36 - 125 U/L 10/12/2024 6:29 AM EDT [facility] Total Protein 4.2(L) 6.4 - 8.9 g/dL 10/12/2024 6:29 AM EDT [facility] Albumin 3.1(L) 3.5 - 5.7 g/dL 10/12/2024 6:29 AM EDT [facility] Bilirubin, Indirect 2.86(H) 0.00 - 1.10 mg/dL 10/12/2024 6:29 AM EDT [facility] Plasma 10/12/2024 5:44 AM EDT 10/12/2024 5:58 AM EDT Eileen Schroeder MD, PhD LAB BLOOD ORDERABLES Final Result Performing Organization Address City/[facility]/ZIP Co de Phone Number [facility] [address] [facility]. [address] * Magnesium (10/12/2024 5:44 AM EDT) Magnesium 1.9 1.5 - 2.5 mg/dL 10/12/2024 6:29 AM EDT [facility] Plasma 10/12/2024 5:44 AM EDT 10/12/2024 5:58 AM EDT Eileen Schroeder MD, PhD LAB BLOOD ORDERABLES Final Result Performing Organization Address [facility] Co de Phone Number [facility] [address] * (ABNORMAL) Renal Function Panel w/EGFR (10/12/2024 5:44 AM EDT) Sodium 135 133 - 146 mmol/L 10/12/2024 6:29 AM EDT [facility] Potassium 3.7 3.5 - 5.3 mmol/L 10/12/2024 6:29 AM EDT [facility] Chloride 109 98 - 110 mmol/L 10/12/2024 6:29 AM EDT [facility] CO2 17(L) 21 - 33 mmol/L 10/12/2024 6:29 AM EDT [facility] Anion Gap 9 3 - 16 mmol/L 10/12/2024 6:29 AM EDT [facility] BUN 52(H) 7 - 25 mg/dL 10/12/2024 6:29 AM EDT [facility] Creatinine 2.94(H) 0.60 - 1.30 mg/dL 10/12/2024 6:29 AM EDT [facility] Glucose 121(H) 70 - 100 mg/dL 10/12/2024 6:29 AM EDT [facility] Calcium 8.5(L) 8.6 - 10.3 mg/dL 10/12/2024 6:29 AM EDT [facility] Phosphorus 4.6 2.1 - 4.7 mg/dL 10/12/2024 6:29 AM EDT [facility] Albumin 3.1(L) 3.5 - 5.7 g/dL 10/12/2024 6:29 AM EDT [facility] Osmolality, Calculated 295 278 - 305 mOsm/kg 10/12/2024 6:29 AM EDT [facility] EGFR 27 10/12/2024 6:29 AM EDT [facility] Comment:As of 2021, the [...] PhD LAB BLOOD ORDERABLES Final Result [facility] [address] * (ABNORMAL) CBC (10/12/2024 5:44 AM EDT) WBC 3.3(L) 3.8 - 10.8 10E3/uL 10/12/2024 7:06 AM EDT [facility] RBC 1.95(L) 4.20 - 5.80 10E6/uL 10/12/2024 7:06 AM EDT [facility] Hemoglobin 7.2(L) 13.2 - 17.1 g/dL 10/12/2024 7:06 AM EDT [facility] Hematocrit 19.7(L) 38.5 - 50.0 % 10/12/2024 7:06 AM EDT [facility] MCV 101.2(H) 80.0 - 100.0 fL 10/12/2024 7:06 AM EDT [facility] MCH 37.0(H) 27.0 - 33.0 pg 10/12/2024 7:06 AM EDT [facility] MCHC 36.5(H) 32.0 - 36.0 g/dL 10/12/2024 7:06 AM EDT [facility] RDW 17.6(H) 11.0 - 15.0 % 10/12/2024 7:06 AM EDT [facility] Platelets 30(L) 140 - 400 10E3/uL 10/12/2024 7:06 AM EDT [facility] Comment: Specimen checked for clots. None detected. Slide Reviewed for PLT Clumps. None Seen. Platelet Estimate Decreased 10/12/2024 7:06 AM EDT [facility] MPV 8.3 7.5 - 11.5 fL 10/12/2024 7:06 AM EDT [facility] Whole Blood 10/12/2024 5:44 AM EDT 10/12/2024 5:58 AM EDT Narrative [facility] - 10/12/2024 7:06 AM EDT Peripheral blood smear was scanned per review criteria approved by the laboratory anesthesiology medical doctor. us Eileen Schroeder MD, PhD LAB BLOOD ORDERABLES Final Result [facility] [address] * CARISA Rhythm Strip - Scan (10/11/2024 10:04 PM EDT) us Scanning [employer]him SCAN DOCS - NO RESULTS Final Res ult * (ABNORMAL) Protime-INR (10/11/2024 3:02 AM EDT) Protime 26.8(H) 12.1 - 15.1 seconds 10/11/2024 3:30 AM EDT [facility] INR 2.4(H) 0.9 - 1.1 10/11/2024 3:30 AM EDT [facility] Comment: RECOMMENDED THERAPEUTIC RANGES USING INR : Stable oral anticoagulant therapy: 2.0 - 3.0 Mechanical prosthetic heart valve: 2.5 - 3.5 Recurrent acute myocardial infarction: 2.5 - 3.5 Plasma 10/11/2024 3:02 AM EDT 10/11/2024 3:08 AM EDT Eileen Schroeder MD, PhD LAB BLOOD ORDERABLES Final Result [facility] [address] [facility]. [address] * (ABNORMAL) Hepatic Function Panel (10/11/2024 3:02 AM EDT) Total Bilirubin 7.3(H) 0.0 - 1.5 mg/dL 10/11/2024 3:38 AM EDT [facility] Bilirubin, Direct 3.85(H) 0.00 - 0.40 mg/dL 10/11/2024 3:38 AM EDT [facility] AST 39 13 - 39 U/L 10/11/2024 3:38 AM EDT [facility] ALT 20 7 - 52 U/L 10/11/2024 3:38 AM EDT [facility] Alkaline Phosphatase 88 36 - 125 U/L 10/11/2024 3:38 AM EDT [facility] Total Protein 4.5(L) 6.4 - 8.9 g/dL 10/11/2024 3:38 AM EDT [facility] Albumin 3.3(L) 3.5 - 5.7 g/dL 10/11/2024 3:38 AM EDT [facility] Bilirubin, Indirect 3.45(H) 0.00 - 1.10 mg/dL 10/11/2024 3:38 AM EDT [facility] Plasma 10/11/2024 3:02 AM EDT 10/11/2024 3:08 AM EDT Eileen Schroeder MD, PhD LAB BLOOD ORDERABLES Final Result Performing Organization Address [facility]/ZIP Co de Phone Number [facility] [address] * Magnesium (10/11/2024 3:02 AM EDT) Magnesium 2.0 1.5 - 2.5 mg/dL 10/11/2024 3:38 AM EDT [facility] Plasma 10/11/2024 3:02 AM EDT 10/11/2024 3:08 AM EDT Eileen Schroeder MD, PhD LAB BLOOD ORDERABLES Final Result Performing Organization Address [facility] de Phone Number [facility] [address] * (ABNORMAL) Renal Function Panel w/EGFR (10/11/2024 3:02 AM EDT) Sodium 134 133 - 146 mmol/L 10/11/2024 3:38 AM EDT [facility] Potassium 3.6 3.5 - 5.3 mmol/L 10/11/2024 3:38 AM EDT [facility] Chloride 108 98 - 110 mmol/L 10/11/2024 3:38 AM EDT [facility] CO2 16(L) 21 - 33 mmol/L 10/11/2024 3:38 AM EDT [facility] Anion Gap 10 3 - 16 mmol/L 10/11/2024 3:38 AM EDT [facility] BUN 49(H) 7 - 25 mg/dL 10/11/2024 3:38 AM EDT [facility] Creatinine 2.77(H) 0.60 - 1.30 mg/dL 10/11/2024 3:38 AM EDT [facility] Glucose 112(H) 70 - 100 mg/dL 10/11/2024 3:38 AM EDT [facility] Calcium 8.9 8.6 - 10.3 mg/dL 10/11/2024 3:38 AM EDT [facility] Phosphorus 3.5 2.1 - 4.7 mg/dL 10/11/2024 3:38 AM EDT [facility] Albumin 3.3(L) 3.5 - 5.7 g/dL 10/11/2024 3:38 AM EDT [facility] Osmolality, Calculated 292 278 - 305 mOsm/kg 10/11/2024 3:38 AM EDT [facility] EGFR 29 10/11/2024 3:38 AM EDT [facility] Comment:As of 2021, the [...] PhD LAB BLOOD ORDERABLES Final Result [facility] [address] [place] [address], [facility] * (ABNORMAL) CBC (10/11/2024 3:02 AM EDT) WBC 4.0 3.8 - 10.8 10E3/uL 10/11/2024 3:55 AM EDT [facility] RBC 2.11(L) 4.20 - 5.80 10E6/uL 10/11/2024 3:55 AM EDT [facility] Hemoglobin 7.7(L) 13.2 - 17.1 g/dL 10/11/2024 3:55 AM EDT [facility] Hematocrit 21.2(L) 38.5 - 50.0 % 10/11/2024 3:55 AM EDT [facility] MCV 100.5(H) 80.0 - 100.0 fL 10/11/2024 3:55 AM EDT [facility] MCH 36.4(H) 27.0 - 33.0 pg 10/11/2024 3:55 AM EDT [facility] MCHC 36.2(H) 32.0 - 36.0 g/dL 10/11/2024 3:55 AM EDT [facility] RDW 17.9(H) 11.0 - 15.0 % 10/11/2024 3:55 AM EDT [facility] Platelets 32(L) 140 - 400 10E3/uL 10/11/2024 3:55 AM EDT [facility] Comment: Specimen checked for clots. None detected. Slide Reviewed for PLT Clumps. None Seen. Platelet Estimate Decreased 10/11/2024 3:55 AM EDT [facility] MPV 8.1 7.5 - 11.5 fL 10/11/2024 3:55 AM EDT [facility] Whole Blood 10/11/2024 3:02 AM EDT 10/11/2024 3:08 AM EDT Narrative [facility] - 10/11/2024 3:55 AM EDT Peripheral blood smear was scanned per review criteria approved by the laboratory anesthesiology medical doctor. us Eileen cShroeder MD, PhD LAB BLOOD ORDERABLES Final Result [facility] [address] [place] [address], [facility] * Vancomycin, random (10/11/2024 3:02 AM EDT) Vancomycin Random 13.4 ug/mL 10/11/2024 3:37 AM EDT [facility] Comment:Reference range not established for this test. Plasma 10/11/2024 3:02 AM EDT 10/11/2024 3:08 AM EDT us Jodi FreireD LAB BLOOD ORDERABLES Final Result [facility] [address] [id number], [facility] * IR Paracentesis incl imaging guide (10/10/2024 [...] diagnostic and therapeutic paracentesis. Bakari Wahl CNP, Senior Web Applications Developer Procedure and Findings: The procedure was performed [...] for diagnostic andtherapeutic paracentesis. Bakari Wahl CNP, Senior Web Applications Developer Procedure and Findings: The procedure was performed [...] Fluid 13 % 10/10/2024 5:29 PM EDT [facility] Mesothelial %, Fluid 6 % 10/10/2024 5:29 PM EDT [facility] Macrophage %, Fluid 72 % 10/10/2024 5:29 PM EDT [facility] RBC, Fluid 2,662 /uL 10/10/2024 4:41 PM EDT [facility] Total Nucleated Cells, Fluid 89 /uL 10/10/2024 4:41 PM EDT [facility] Comment:Total Nucleated Cell s represent WBCs and other nucleated cells in the fluid such as lining cells. Ascitic Fluid ABDOMEN / Unknown 1:51 PM EDT 10/10/2024 3:56 PM EDT us Gerri Peterson MD BODY FLUIDS AND STOOLS ORDERABL ES Final Result [facility] [address] [facility] [place] [place] [address], [facility] * Body Fluid Culture plus Stain (10/10/2024 1:51 PM EDT) Gram Stain Result Cytospin Results: [facility] Gram Stain Result Polymorphonuclear Leukocytes Seen; [facility] Gram Stain Result No Organisms Seen; [facility] Culture Result No Growth After 5 Days [facility] Fluid ABDOMEN / Unknown 10/10/2024 1:51 PM EDT 10/10/2024 3:56 PM EDT us Gerri Peterson MD MICROBIOLOGY - GENERAL ORDERABL ES Final Result Performing Organization Address City/State/[facility] Co de Phone Number [facility] [address] [place], [place] [address] * UPPER GI ENDOSCOPY (10/10/2024 11:48 AM EDT) 10/10/2024 11:4 8 AM EDT Narrative [facility] - 10/10/2024 12:34 PM EDT [id number] Procedure Date: 10/10/2024 11:48 AM Patient Name: Julien Gilbert Date of : 1985 Admit Type: Inpatient Age: 39 Gender: Male Note Status: Finalized Attending MD: Lino Soto MD, [id number] Procedure: Upper GI endoscopy Indications: Gastroesopahgeal variceal [...] verified by the physician, the nurse, the market research analyst and the pharmacy technician program director in the pre-procedure area in the procedure [...] to hypotension Procedure Code(s): --- Professional --- 43646, GC, Esophagogastroduodenoscopy, flexible, transoral; diagnostic, including collection of specimen(s) by brushing or washing, when performed (separate procedure) Diagnosis Code(s): --- Professional --- I85.00, Esophageal varices without bleeding K76.6, Portal hypertension K31.89, Other diseases of stomach and duodenum CPT copyright 2022 [employer]. All rights reserved. The codes documented in this report are preliminary and upon property worker review may be revised to meet current [...] In: 12:10:16 PM Scope Out: 12:17:[address] [place] [address], [facility] us Provider Not In System PROCEDURE/MINOR SURGICAL ORDERABLES Final Result [facility] * (ABNORMAL) Protime-INR (10/10/2024 5:23 AM EDT) Protime 23.9(H) 12.1 - 15.1 seconds 10/10/2024 6:11 AM EDT [facility] INR 2.1(H) 0.9 - 1.1 10/10/2024 6:11 AM EDT [facility] Comment: RECOMMENDED THERAPEUTIC RANGES USING INR : Stable oral anticoagulant therapy: 2.0 - 3.0 Mechanical prosthetic heart valve: 2.5 - 3.5 Recurrent acute myocardial infarction: 2.5 - 3.5 Plasma 10/10/2024 5:23 AM EDT 10/10/2024 5:50 AM EDT us Eileen Schroeder MD, PhD LAB BLOOD ORDERABLES Final Result Performing Organization Address [facility]/ZIP Co de Phone Number [facility] [address] [facility]. [address] * (ABNORMAL) Hepatic Function Panel (10/10/2024 5:23 AM EDT) Total Bilirubin 8.6(H) 0.0 - 1.5 mg/dL 10/10/2024 6:21 AM EDT [facility] Bilirubin, Direct 4.65(H) 0.00 - 0.40 mg/dL 10/10/2024 6:21 AM EDT [facility] AST 40(H) 13 - 39 U/L 10/10/2024 6:21 AM EDT [facility] ALT 22 7 - 52 U/L 10/10/2024 6:21 AM EDT [facility] Alkaline Phosphatase 118 36 - 125 U/L 10/10/2024 6:21 AM EDT [facility] Total Protein 4.6(L) 6.4 - 8.9 g/dL 10/10/2024 6:21 AM EDT [facility] Albumin 3.3(L) 3.5 - 5.7 g/dL 10/10/2024 6:21 AM EDT [facility] Bilirubin, Indirect 3.95(H) 0.00 - 1.10 mg/dL 10/10/2024 6:21 AM EDT [facility] Plasma 10/10/2024 5:23 AM EDT 10/10/2024 5:50 AM EDT Eileen Schroeder MD, PhD LAB BLOOD ORDERABLES Final Result Performing Organization Address City/[facility]/ZIP Co de Phone Number [facility] [address] * Magnesium (10/10/2024 5:23 AM EDT) Magnesium 1.9 1.5 - 2.5 mg/dL 10/10/2024 6:21 AM EDT [facility] Plasma 10/10/2024 5:23 AM EDT 10/10/2024 5:50 AM EDT us Eileen Schroeder MD, PhD LAB BLOOD ORDERABLES Final Result [facility] [address] * (ABNORMAL) Renal Function Panel w/EGFR (10/10/2024 5:23 AM EDT) Sodium 135 133 - 146 mmol/L 10/10/2024 6:21 AM EDT [facility] Potassium 3.6 3.5 - 5.3 mmol/L 10/10/2024 6:21 AM EDT [facility] Chloride 108 98 - 110 mmol/L 10/10/2024 6:21 AM EDT [facility] CO2 17(L) 21 - 33 mmol/L 10/10/2024 6:21 AM EDT [facility] Anion Gap 10 3 - 16 mmol/L 10/10/2024 6:21 AM EDT [facility] BUN 53(H) 7 - 25 mg/dL 10/10/2024 6:21 AM EDT [facility] Creatinine 2.85(H) 0.60 - 1.30 mg/dL 10/10/2024 6:21 AM EDT [facility] Glucose 113(H) 70 - 100 mg/dL 10/10/2024 6:21 AM EDT [facility] Calcium 9.0 8.6 - 10.3 mg/dL 10/10/2024 6:21 AM EDT [facility] Phosphorus 3.3 2.1 - 4.7 mg/dL 10/10/2024 6:21 AM EDT [facility] Albumin 3.3(L) 3.5 - 5.7 g/dL 10/10/2024 6:21 AM EDT [facility] Osmolality, Calculated 295 278 - 305 mOsm/kg 10/10/2024 6:21 AM EDT [facility] EGFR 28 10/10/2024 6:21 AM EDT [facility] Comment:As of 2021, the [...] PhD LAB BLOOD ORDERABLES Final Result [facility] [address] [id number], [facility] * (ABNORMAL) CBC (10/10/2024 5:23 AM EDT) WBC 5.1 3.8 - 10.8 10E3/uL 10/10/2024 6:14 AM EDT [facility] RBC 2.04(L) 4.20 - 5.80 10E6/uL 10/10/2024 6:14 AM EDT [facility] Hemoglobin 7.3(L) 13.2 - 17.1 g/dL 10/10/2024 6:14 AM EDT [facility] Hematocrit 20.6(L) 38.5 - 50.0 % 10/10/2024 6:14 AM EDT [facility] MCV 101.2(H) 80.0 - 100.0 fL 10/10/2024 6:14 AM EDT [facility] MCH 36.0(H) 27.0 - 33.0 pg 10/10/2024 6:14 AM EDT [facility] MCHC 35.5 32.0 - 36.0 g/dL 10/10/2024 6:14 AM EDT [facility] RDW 17.6(H) 11.0 - 15.0 % 10/10/2024 6:14 AM EDT [facility] Platelets 39(L) 140 - 400 10E3/uL 10/10/2024 6:14 AM EDT [facility] Comment: CNV Specimen checked for clots. None detected. MPV 9.8 7.5 - 11.5 fL 10/10/2024 6:14 AM EDT [facility] Whole Blood 10/10/2024 5:23 AM EDT 10/10/2024 5:51 AM EDT us Eileen Schroeder MD, PhD LAB BLOOD ORDERABLES Final Result Performing Organization Address [facility]/ZIP Co de Phone Number [facility] [address] [place] [address] * Vancomycin, random (10/10/2024 5:23 AM EDT) Vancomycin Random 16.4 ug/mL 10/10/2024 6:22 AM EDT [facility] Comment:Reference range not established for this test. Plasma 10/10/2024 5:23 AM EDT 10/10/2024 5:51 AM EDT us Jodi FreireD LAB BLOOD ORDERABLES Final Result Performing Organization Address [facility]/ZIP Co de Phone Number [facility] [address] [place] [address] * ECHO STRESS W/ CONTRAST (10/09/2024 4:37 PM EDT) Anatomical Region Laterality Modality Chest Ultrasound 10/09/2024 2:40 PM EDT Narrative 10/09/2024 6:45 PM EDT * [facility]* [address] [place] [address] Stress Echocardiogram Patient: Julien Gilbert Room: 8142 Height: 76in MR Number: [id number] : 1985 Weight: 262lb Account: [id number] Gender: M BP: 125 / 77 Study Date: 10/09/2024 Age: 39 BSA: 2.48m^2 Referring physician: Gerri Peterson Interpreting physician: Tonya Henriquez MD FELLOW Lisa Jha MD PERFORMING Tonya Henriquez MD PRINTING MACHINIST [employer] ORDERING Gerri Peterson REFERRING Gerri [...] was augmented by the addition of hand macadam raker and leg lifts. The infusion was terminated [...] at baseline or with provocation, shows no evang-hf-bcka atrial level shunt. - Pulmonary arteries: Systolic [...] at baseline or with provocation, shows no yegfp-kg-kqln atrial level shunt. Pulmonary artery: - Systolic [...] at baseline or with provocation, shows no hzujk-ca-vbkv atrial level shunt. Pericardium: - There is [...] peak heart rate and blood pressure was [id number] Hg/min. Stress testing did not produce any [...] Reviewed and confirmed by Tonya Henriquez MD [id number] Procedure Note Tonya Henriquez MD - 10/09/2024 * [facility]* [address] [place] [address] Stress Echocardiogram Patient: Julien Gilbert Room: 8142 Height: 76in MR Number: [id number] : 1985 Weight: 262lb Account: [id number] Gender: M BP: 125 / 77 Study Date: 10/09/2024 Age: 39 BSA: 2.48m^2 Referring physician: Gerri Peterson Interpreting physician: Tonya Henriquez MD FELLOW Lisa Jha MD PERFORMING Tonya Henriquez MD PRINTING MACHINIST [employer] ORDERING Gerri Peterson REFERRING Gerri Peterson ATTENDING Fouzia Rene ADMITTING Angie [facility] Procedure:STRESS ECHO - PHARMACOLOGIC Order: Indications: Pre-Operative Clearance (Z01.818). PMH: EtOH Use Disorder. Risk factors: Hypertension. Dyslipidemia. Study data: Height: 76in. 193cm. Weight: 262lb. 118.8kg. The previousstudy was not available, so comparison was made to the report of 07/15/2024. Study status: Routine. Procedure: [facility] was recorded. Intravenous access [...] was augmented by the addition of hand macadam raker and leg lifts. The infusion was terminated [...] at baseline or with provocation, shows no dxnrd-vc-qjrv atrial level shunt. - Pulmonary arteries: Systolic [...] study at baseline or with provocation, showsno hwdhc-yu-houc atrial level shunt. Pulmonary artery: - Systolic [...] at baseline or with provocation, shows no pjjfj-gq-qzxt atrial level shunt. Pericardium: - There is [...] heart rate). The maximal predicted heart rate [id number]. The target heart rate was 152bpm. The target heart rate was achieved.The heart rate response to stress is normal. There is a normal resting blood pressure with an appropriate response to stress. The rate-pressureproduct for the peak heart rate and blood pressure was 09003si Hg/min. Stress testing did not produce any [...] Reviewed and confirmed by Tonya Henriquez MD [id number] us Gerri Peterson MD CV ECHO ORDERABLES Final Result * (ABNORMAL) Renal Function Panel w/EGFR, STAT (10/09/2024 1:05 PM EDT) Sodium 134 133 - 146 mmol/L 10/09/2024 2:10 PM EDT [facility] Potassium 3.7 3.5 - 5.3 mmol/L 10/09/2024 2:10 PM EDT [facility] Chloride 105 98 - 110 mmol/L 10/09/2024 2:10 PM EDT [facility] CO2 17(L) 21 - 33 mmol/L 10/09/2024 2:10 PM EDT [facility] Anion Gap 12 3 - 16 mmol/L 10/09/2024 2:10 PM EDT [facility] BUN 53(H) 7 - 25 mg/dL 10/09/2024 2:10 PM EDT [facility] Creatinine 2.89(H) 0.60 - 1.30 mg/dL 10/09/2024 2:10 PM EDT [facility] Glucose 108(H) 70 - 100 mg/dL 10/09/2024 2:10 PM EDT [facility] Calcium 9.3 8.6 - 10.3 mg/dL 10/09/2024 2:10 PM EDT [facility] Phosphorus 3.4 2.1 - 4.7 mg/dL 10/09/2024 2:10 PM EDT [facility] Albumin 3.6 3.5 - 5.7 g/dL 10/09/2024 2:10 PM EDT [facility] Osmolality, Calculated 293 278 - 305 mOsm/kg 10/09/2024 2:10 PM EDT [facility] EGFR 27 10/09/2024 2:10 PM EDT [facility] Comment:As of 2021, the [...] PhD LAB BLOOD ORDERABLES Final Result [facility] [address] [place] [address], [facility] * (ABNORMAL) Renal Function Panel w/EGFR, STAT (10/09/2024 8:14 AM EDT) Sodium 134 133 - 146 mmol/L 10/09/2024 8:47 AM EDT [facility] Potassium 3.4(L) 3.5 - 5.3 mmol/L 10/09/2024 8:47 AM EDT [facility] Chloride 107 98 - 110 mmol/L 10/09/2024 8:47 AM EDT [facility] CO2 17(L) 21 - 33 mmol/L 10/09/2024 8:47 AM EDT [facility] Anion Gap 10 3 - 16 mmol/L 10/09/2024 8:47 AM EDT [facility] BUN 54(H) 7 - 25 mg/dL 10/09/2024 8:47 AM EDT [facility] Creatinine 3.04(H) 0.60 - 1.30 mg/dL 10/09/2024 8:47 AM EDT [facility] Glucose 124(H) 70 - 100 mg/dL 10/09/2024 8:47 AM EDT [facility] Calcium 9.0 8.6 - 10.3 mg/dL 10/09/2024 8:47 AM EDT [facility] Phosphorus 3.5 2.1 - 4.7 mg/dL 10/09/2024 8:47 AM EDT [facility] Albumin 3.4(L) 3.5 - 5.7 g/dL 10/09/2024 8:47 AM EDT [facility] Osmolality, Calculated 294 278 - 305 mOsm/kg 10/09/2024 8:47 AM EDT [facility] EGFR 26 10/09/2024 8:47 AM EDT [facility] Comment:As of 2021, the [...] ORDERABLES Final Resu lt Performing Organization Address City/[facility]/ZIP Co de Phone Number [facility] [address] * Prepare RBC, leukoreduced, 1 Units (10/09/2024 6:16 AM EDT) Product Code [id number] HCLL Unit Number [id number] HCLL Dispense Status Presumed Transfused_PT HCLL Blood Expiration Date [id number] HCLL Coding System [id number] HCLL Blood Bank Product us Eileen Schroeder [...] BLOOD ORDERABLES Final Result Performing Organization Address City/State/[facility] Co de Phone Number [facility] [address] * (ABNORMAL) Hepatic Function Panel (10/09/2024 4:59 AM EDT) Total Bilirubin 9.0(H) 0.0 - 1.5 mg/dL 10/09/2024 6:42 AM EDT [facility] Bilirubin, Direct 4.60(H) 0.00 - 0.40 mg/dL 10/09/2024 6:42 AM EDT [facility] AST 38 13 - 39 U/L 10/09/2024 6:42 AM EDT [facility] ALT 18 7 - 52 U/L 10/09/2024 6:42 AM EDT [facility] Alkaline Phosphatase 122 36 - 125 U/L 10/09/2024 6:42 AM EDT [facility] Total Protein 4.8(L) 6.4 - 8.9 g/dL 10/09/2024 6:42 AM EDT [facility] Albumin 3.4(L) 3.5 - 5.7 g/dL 10/09/2024 6:42 AM EDT [facility] Bilirubin, Indirect 4.40(H) 0.00 - 1.10 mg/dL 10/09/2024 6:42 AM EDT [facility] Plasma 10/09/2024 4:59 AM EDT 10/09/2024 5:57 AM EDT Eileen Schroeder MD, PhD LAB BLOOD ORDERABLES Final Result Performing Organization Address [facility]/ZIP Co de Phone Number [facility] [address] * Magnesium (10/09/2024 4:59 AM EDT) Magnesium 1.8 1.5 - 2.5 mg/dL 10/09/2024 6:42 AM EDT [facility] Plasma 10/09/2024 4:59 AM EDT 10/09/2024 5:57 AM EDT Eileen Schroeder MD, PhD LAB BLOOD ORDERABLES Final Result Performing Organization Address [facility] de Phone Number [facility] [address] * (ABNORMAL) Renal Function Panel w/EGFR (10/09/2024 4:59 AM EDT) Sodium 134 133 - 146 mmol/L 10/09/2024 6:42 AM EDT [facility] Potassium 3.3(L) 3.5 - 5.3 mmol/L 10/09/2024 6:42 AM EDT [facility] Chloride 107 98 - 110 mmol/L 10/09/2024 6:42 AM EDT [facility] CO2 16(L) 21 - 33 mmol/L 10/09/2024 6:42 AM EDT [facility] Anion Gap 11 3 - 16 mmol/L 10/09/2024 6:42 AM EDT [facility] BUN 56(H) 7 - 25 mg/dL 10/09/2024 6:42 AM EDT [facility] Creatinine 2.98(H) 0.60 - 1.30 mg/dL 10/09/2024 6:42 AM EDT [facility] Glucose 112(H) 70 - 100 mg/dL 10/09/2024 6:42 AM EDT [facility] Calcium 9.0 8.6 - 10.3 mg/dL 10/09/2024 6:42 AM EDT [facility] Phosphorus 3.5 2.1 - 4.7 mg/dL 10/09/2024 6:42 AM EDT [facility] Albumin 3.4(L) 3.5 - 5.7 g/dL 10/09/2024 6:42 AM EDT [facility] Osmolality, Calculated 294 278 - 305 mOsm/kg 10/09/2024 6:42 AM EDT [facility] EGFR 26 10/09/2024 6:42 AM EDT [facility] Comment:As of 2021, the [...] PhD LAB BLOOD ORDERABLES Final Result [facility] [address] [place] [address], [facility] * (ABNORMAL) CBC (10/09/2024 4:59 AM EDT) WBC 4.6 3.8 - 10.8 10E3/uL 10/09/2024 6:21 AM EDT [facility] RBC 2.17(L) 4.20 - 5.80 10E6/uL 10/09/2024 6:21 AM EDT [facility] Hemoglobin 8.0(L) 13.2 - 17.1 g/dL 10/09/2024 6:21 AM EDT [facility] Hematocrit 21.8(L) 38.5 - 50.0 % 10/09/2024 6:21 AM EDT [facility] MCV 100.5(H) 80.0 - 100.0 fL 10/09/2024 6:21 AM EDT [facility] MCH 36.7(H) 27.0 - 33.0 pg 10/09/2024 6:21 AM EDT [facility] MCHC 36.5(H) 32.0 - 36.0 g/dL 10/09/2024 6:21 AM EDT [facility] RDW 18.1(H) 11.0 - 15.0 % 10/09/2024 6:21 AM EDT [facility] Platelets 36(L) 140 - 400 10E3/uL 10/09/2024 6:21 AM EDT [facility] Comment:Specimen checked for clots. None detected. MPV 8.3 7.5 - 11.5 fL 10/09/2024 6:21 AM EDT [facility] Whole Blood 10/09/2024 4:59 AM EDT 10/09/2024 5:56 AM EDT Eileen Schroeder MD, PhD LAB BLOOD ORDERABLES Final Result [facility] [address] [place] [address], [facility] * Renal Tx Recipient (10/09/2024 4:59 AM EDT) Renal Transplant Recipient The request and specimen(s) for this test have been received and transported to the [facility] at [address] [place] [address]. The [facility] [place] will report results directly to the client. 10/09/2024 7:26 AM EDT [facility] Blood 10/09/2024 4:59 AM EDT 10/09/2024 7:26 AM EDT us Aaron Gonzalez MD LAB BLOOD ORDERABLES Final Resu lt [facility] [address] * Vancomycin, random (10/09/2024 4:59 AM EDT) Vancomycin Random 11.0 ug/mL 10/09/2024 6:33 AM EDT [facility] Comment:Reference range not established for this test. Plasma 10/09/2024 4:59 AM EDT 10/09/2024 5:56 AM EDT us Jodi Ortiz PharmD LAB BLOOD ORDERABLES Final Result [facility] [address] [facility]. [address] * (ABNORMAL) CBC (10/08/2024 5:52 PM EDT) WBC 5.6 3.8 - 10.8 10E3/uL 10/08/2024 6:52 PM EDT [facility] RBC 2.38(L) 4.20 - 5.80 10E6/uL 10/08/2024 6:52 PM EDT [facility] Hemoglobin 8.3(L) 13.2 - 17.1 g/dL 10/08/2024 6:52 PM EDT [facility] Hematocrit 24.6(L) 38.5 - 50.0 % 10/08/2024 6:52 PM EDT [facility] MCV 103.2(H) 80.0 - 100.0 fL 10/08/2024 6:52 PM EDT [facility] MCH 34.7(H) 27.0 - 33.0 pg 10/08/2024 6:52 PM EDT [facility] MCHC 33.6 32.0 - 36.0 g/dL 10/08/2024 6:52 PM EDT [facility] RDW 18.5(H) 11.0 - 15.0 % 10/08/2024 6:52 PM EDT [facility] Platelets 39(L) 140 - 400 10E3/uL 10/08/2024 6:52 PM EDT [facility] Comment:CNV MPV 8.1 7.5 - 11.5 fL 10/08/2024 6:52 PM EDT [facility] Whole Blood 10/08/2024 5:52 PM EDT 10/08/2024 6:45 PM EDT Eileen Schroeder MD, PhD LAB BLOOD ORDERABLES Final Result Performing Organization Address City/[facility]/ZIP Co de Phone Number [facility] [address] * Transfuse RBC Has consent been obtained? Yes; Transfusion Rate: Per dept routine (10/08/2024 1:17 PM EDT) Eileen Schroeder MD, PhD NURSING TREATMENT ORD ERABLES - BLOOD ADMIN Final Result Performing Organization Address City/[facility]/ZIP Co de Phone Number EXTERNAL * Transfuse RBC Has consent been obtained? Yes; Transfusion Rate: Per dept routine, 1 Units (10/08/2024 1:17 PM EDT) Eileen Schroeder MD, PhD NURSING TREATMENT ORD ERABLES - BLOOD ADMIN Final Result Performing Organization Address [facility] Co de Phone Number EXTERNAL * (ABNORMAL) MMR(IgG) Panel (Measles, Mumps, Rubella) (10/08/2024 10:25 AM EDT) Mumps IgG Positive 10/08/2024 11:39 AM EDT [facility] MUMPS IGG NUM 99.00(H) 0.0 - 8.9 U/mL 10/08/2024 11:39 AM EDT [facility] Rubella IgG Scr Positive 10/08/2024 11:40 AM EDT [facility] RUB NUM 4.15(H) 0.00 - 0.89 INDEX 10/08/2024 11:40 AM EDT [facility] Rubeola Ab, IgG Positive 10/08/2024 11:39 AM EDT [facility] RUB IGG NUM 273.00(H) 0.00 - 13.40 U/mL 10/08/2024 11:39 AM EDT [facility] Serum 10/08/2024 10:2 5 AM EDT 10/08/2024 10:49 AM EDT Narrative [facility] - 10/08/2024 11:40 AM EDT [...] ORDERABLES Final Resu lt Performing Organization Address [facility]/ZIP Co de Phone Number [facility] [address] [facility]. [address] * (ABNORMAL) Hemoglobin A1C (10/08/2024 10:25 AM EDT) Hemoglobin A1C 3.7(L) 4.0 - 5.6 % 10/09/2024 1:22 PM EDT [facility] Comment: Hemoglobin A1c Interpretation Guidelines: [...] 5 AM EDT 10/08/2024 10:51 AM EDT eGrri Peterson MD LAB BLOOD ORDERABLES Final Resu lt Performing Organization Address [facility] Co de Phone Number [facility] [address] [facility]. [address] * (ABNORMAL) Vitamin D 25 Hydroxy (10/08/2024 10:25 AM EDT) Vit D, 25-Hydroxy 7.1(L) 30.0 - 100.0 ng/mL 10/08/2024 11:36 AM EDT [facility] Comment: Vitamin D deficiency has been defined by the [place] [employer] (IOM) and an Endocrine Society [...] ORDERABLES Final Resu lt Performing Organization Address City/[facility]/ZIP Co de Phone Number [facility] [address] * Iron Studies (Iron + TIBC) (10/08/2024 10:25 AM EDT) Iron 81 50 - 212 ug/dL 10/08/2024 11:23 AM EDT [facility] % Iron Saturation SEE COMMENT 15.0 - 55.0 % 10/08/2024 11:23 AM EDT [facility] Comment:Unable to calculate result because contributing result outside reportable range.. TIBC SEE COMMENT 261 - 462 ug/dL 10/08/2024 11:23 AM EDT [facility] Comment:Unable to calculate result because contributing result outside reportable range.. Serum 10/08/2024 10:2 5 AM EDT 10/08/2024 10:49 AM EDT Gerri Peterson MD LAB BLOOD ORDERABLES Final Resu lt Performing Organization Address City/[facility]/ZIP Co de Phone Number [facility] [address] [facility]. [address] * (ABNORMAL) Ferritin (10/08/2024 10:25 AM EDT) Ferritin 706.9(H) 23.9 - 336.2 ng/mL 10/08/2024 11:35 AM EDT [facility] Serum 10/08/2024 10:2 5 AM EDT 10/08/2024 10:49 AM EDT Gerri Peterson MD LAB BLOOD ORDERABLES Final Resu lt [facility] [address] [facility]. [address] * QuantiFERON TB2 Ag (10/08/2024 10:25 AM EDT) QuantiFERON TB2 Ag Value 0.07 10/10/2024 10:41 AM EDT [facility] Plasma 10/08/2024 10:2 5 AM EDT 10/08/2024 11:05 AM EDT Gerri Peterson MD LAB BLOOD ORDERABLES Final Resu lt Performing Organization Address City/[facility]/ZIP Co de Phone Number [facility] [address] [facility]. [address] * QuantiFERON TB1 Ag (10/08/2024 10:25 AM EDT) QuantiFERON TB1 Ag Value 0.06 10/10/2024 10:41 AM EDT [facility] Plasma 10/08/2024 10:2 5 AM EDT 10/08/2024 11:05 AM EDT Gerri Peterson MD LAB BLOOD ORDERABLES Final Resu lt [facility] [address] [facility]. [address] * QuantiFERON Nil (10/08/2024 10:25 AM EDT) QuantiFERON Nil 0.06 10:41 AM EDT [facility] Plasma 10/08/2024 10:2 5 AM EDT 10/08/2024 11:05 AM EDT Gerri Peterson MD LAB BLOOD ORDERABLES Final Resu lt Performing Organization Address City/[facility]/ZIP Co de Phone Number [facility] [address] [facility]. [address] * QuantiFERON Mitogen (10/08/2024 10:25 AM EDT) QuantiFERON Interpretation Negative Negative 10/10/2024 10:41 AM EDT [facility] Comment:Negative result geovanny cates M. tuberculosis infection is NOT likely. Negative results do not preclude tuberculosis infection (especially in immunosuppressed patients). Negative results have a TB antigen minus Nil value less than 0.35 IU/mL. In cases with high suspicion of disease, retesting or additional testing with medical evaluation may be useful. QuantiFERON Mitogen 4.87 10/10 10:41 AM EDT [facility] Plasma 10/08/2024 10:2 5 AM EDT 10/08/2024 11:05 AM EDT Narrative [facility] - 10/10/2024 10:41 AM EDT [...] LAB BLOOD ORDERABLES Final Resu lt [facility] [address] [facility]. [address] * Reticulocyte Count, Auto (10/08/2024 7:41 AM EDT) Retic Ct Pct 1.35 0.50 - 2.00 % 10/08/2024 9:12 AM EDT [facility] Retic Ct Abs 26,190 25,000 - 90,000 /uL 10/08/2024 9:14 AM EDT [facility] Immature Retic Fract 0.37 0.09 - 0.56 10/08/2024 9:12 AM EDT [facility] Whole Blood 10/08/2024 7:41 AM EDT 10/08/2024 8:51 AM EDT Angie Blanchard MD LAB BLOOD ORDERABLES Final Res ult Performing Organization Address [facility]/ZIP Co de Phone Number [facility] [address] [place] [address] * (ABNORMAL) Haptoglobin (10/08/2024 7:41 AM EDT) Haptoglobin <30(L) 44 - 215 mg/dL 10/08/2024 8:53 AM EDT [facility] Serum 10/08/2024 7:41 AM EDT 10/08/2024 7:51 AM EDT Eileen Schroeder MD, PhD LAB BLOOD ORDERABLES Final Result [facility] [address] [place] [address] * (ABNORMAL) CBC - Post Transfusion (10/08/2024 7:41 AM EDT) WBC 3.7(L) 3.8 - 10.8 10E3/uL 10/08/2024 8:34 AM EDT [facility] RBC 1.94(L) 4.20 - 5.80 10E6/uL 10/08/2024 8:34 AM EDT [facility] Hemoglobin 7.1(L) 13.2 - 17.1 g/dL 10/08/2024 8:34 AM EDT [facility] Hematocrit 20.0(L) 38.5 - 50.0 % 10/08/2024 8:34 AM EDT [facility] MCV 103.1(H) 80.0 - 100.0 fL 10/08/2024 8:34 AM EDT [facility] MCH 36.5(H) 27.0 - 33.0 pg 10/08/2024 8:34 AM EDT [facility] MCHC 35.4 32.0 - 36.0 g/dL 10/08/2024 8:34 AM EDT [facility] RDW 17.2(H) 11.0 - 15.0 % 10/08/2024 8:34 AM EDT [facility] Platelets 37(L) 140 - 400 10E3/uL 10/08/2024 8:34 AM EDT [facility] Comment: Specimen checked for clots. None detected. Slide Reviewed for PLT Clumps. None Seen. _Platelet Morphology Normal _Platelets Appear Decreased MPV 8.7 7.5 - 11.5 fL 10/08/2024 8:34 AM EDT [facility] Whole Blood 10/08/2024 7:41 AM EDT 10/08/2024 7:52 AM EDT [facility] - 10/08/2024 8:34 AM EDT Post-transfusion us Eileen Schroeder MD, PhD LAB BLOOD ORDERABLES Final Result Performing Organization Address City/State/[facility] Co de Phone Number [facility] [address] * Antibody Screen (10/08/2024 7:41 AM EDT) Antibody Screen Negative 10/08/2024 8:26 AM EDT [facility] Blood 10/08/2024 7:41 AM EDT 10/08/2024 7:57 AM EDT [facility] - 10/08/2024 8:32 AM EDT Testing performed by [facility] Transfusion Service Eileen Schroeder MD, PhD BLOOD BANK TEST ORDER PAL Final Result Performing Organization Address City/[facility]/ZIP Co de Phone Number [facility] [address] * ABO/Rh (10/08/2024 7:41 AM EDT) ABO Grouping O 10/08/2024 8:14 AM EDT [facility] Rh Type Positive 10/08/2024 8:14 AM EDT [facility] Blood 10/08/2024 7:41 AM EDT 10/08/2024 7:57 AM EDT us Eileen Schroeder MD, PhD BLOOD BANK TEST ORDER PAL Final Result Performing Organization Address [facility] Co de Phone Number [facility] [address] * (ABNORMAL) Lactate dehydrogenase (10/08/2024 5:36 AM EDT) LD 102(L) 110 - 270 U/L 10/08/2024 8:20 AM EDT [facility] Plasma 10/08/2024 5:36 AM EDT 10/08/2024 7:58 AM EDT us Angie Blanchard MD LAB BLOOD ORDERABLES Final Res ult Performing Organization Address [facility] Co de Phone Number [facility] [address] [facility]. [address] * (ABNORMAL) Protime-INR (10/08/2024 5:36 AM EDT) Protime 26.9(H) 12.1 - 15.1 seconds 10/08/2024 6:11 AM EDT [facility] INR 2.4(H) 0.9 - 1.1 10/08/2024 6:11 AM EDT [facility] Comment: RECOMMENDED THERAPEUTIC RANGES USING INR : Stable oral anticoagulant therapy: 2.0 - 3.0 Mechanical prosthetic heart valve: 2.5 - 3.5 Recurrent acute myocardial infarction: 2.5 - 3.5 Plasma 10/08/2024 5:36 AM EDT 10/08/2024 5:52 AM EDT us Eileen Schroeder MD, PhD LAB BLOOD ORDERABLES Final Result Performing Organization Address [facility] de Phone Number [facility] [address] * (ABNORMAL) Hepatic Function Panel (10/08/2024 5:36 AM EDT) Total Bilirubin 7.7(H) 0.0 - 1.5 mg/dL 10/08/2024 6:25 AM EDT [facility] Bilirubin, Direct 4.28(H) 0.00 - 0.40 mg/dL 10/08/2024 6:25 AM EDT [facility] AST 34 13 - 39 U/L 10/08/2024 6:25 AM EDT [facility] ALT 16 7 - 52 U/L 10/08/2024 6:25 AM EDT [facility] Alkaline Phosphatase 103 36 - 125 U/L 10/08/2024 6:25 AM EDT [facility] Total Protein 4.7(L) 6.4 - 8.9 g/dL 10/08/2024 6:25 AM EDT [facility] Albumin 3.5 3.5 - 5.7 g/dL 10/08/2024 6:25 AM EDT [facility] Bilirubin, Indirect 3.42(H) 0.00 - 1.10 mg/dL 10/08/2024 6:25 AM EDT [facility] Plasma 10/08/2024 5:36 AM EDT 10/08/2024 5:52 AM EDT Eileen Schroeder MD, PhD LAB BLOOD ORDERABLES Final Result Performing Organization Address [facility] Co de Phone Number [facility] [address] * Magnesium (10/08/2024 5:36 AM EDT) Magnesium 1.9 1.5 - 2.5 mg/dL 10/08/2024 6:25 AM EDT [facility] Plasma 10/08/2024 5:36 AM EDT 10/08/2024 5:52 AM EDT us Eileen Schroeder MD, PhD LAB BLOOD ORDERABLES Final Result [facility] [address] * (ABNORMAL) Renal Function Panel w/EGFR (10/08/2024 5:36 AM EDT) Sodium 135 133 - 146 mmol/L 10/08/2024 6:25 AM EDT [facility] Potassium 3.2(L) 3.5 - 5.3 mmol/L 10/08/2024 6:25 AM EDT [facility] Chloride 106 98 - 110 mmol/L 10/08/2024 6:25 AM EDT [facility] CO2 17(L) 21 - 33 mmol/L 10/08/2024 6:25 AM EDT [facility] Anion Gap 12 3 - 16 mmol/L 10/08/2024 6:25 AM EDT [facility] BUN 61(H) 7 - 25 mg/dL 10/08/2024 6:25 AM EDT [facility] Creatinine 3.10(H) 0.60 - 1.30 mg/dL 10/08/2024 6:25 AM EDT [facility] Glucose 106(H) 70 - 100 mg/dL 10/08/2024 6:25 AM EDT [facility] Calcium 9.0 8.6 - 10.3 mg/dL 10/08/2024 6:25 AM EDT [facility] Phosphorus 4.0 2.1 - 4.7 mg/dL 10/08/2024 6:25 AM EDT [facility] Albumin 3.5 3.5 - 5.7 g/dL 10/08/2024 6:25 AM EDT [facility] Osmolality, Calculated 298 278 - 305 mOsm/kg 10/08/2024 6:25 AM EDT [facility] EGFR 25 10/08/2024 6:25 AM EDT [facility] Comment:As of [...] PhD LAB BLOOD ORDERABLES Final Result [facility] [address] [place] [address], [facility] * (ABNORMAL) CBC (10/08/2024 5:36 AM EDT) WBC 3.2(L) 3.8 - 10.8 10E3/uL 10/08/2024 6:41 AM EDT [facility] RBC 1.86(L) 4.20 - 5.80 10E6/uL 10/08/2024 6:41 AM EDT [facility] Hemoglobin 6.9(L) 13.2 - 17.1 g/dL 10/08/2024 6:41 AM EDT [facility] Hematocrit 18.9(L) 38.5 - 50.0 % 10/08/2024 6:41 AM EDT [facility] MCV 101.6(H) 80.0 - 100.0 fL 10/08/2024 6:41 AM EDT [facility] MCH 36.9(H) 27.0 - 33.0 pg 10/08/2024 6:41 AM EDT [facility] MCHC 36.3(H) 32.0 - 36.0 g/dL 10/08/2024 6:41 AM EDT [facility] RDW 17.0(H) 11.0 - 15.0 % 10/08/2024 6:41 AM EDT [facility] Platelets 34(L) 140 - 400 10E3/uL 10/08/2024 6:41 AM EDT [facility] Comment: Specimen checked for clots. None detected. Slide Reviewed for PLT Clumps. None Seen. Platelet Estimate Decreased 10/08/2024 6:41 AM EDT [facility] MPV 8.4 7.5 - 11.5 fL 10/08/2024 6:41 AM EDT [facility] Whole Blood 10/08/2024 5:36 AM EDT 10/08/2024 5:53 AM EDT Narrative [facility] - 10/08/2024 6:41 AM EDT Peripheral blood smear was scanned per review criteria approved by the laboratory anesthesiology medical doctor. us Eileen Schroeder MD, PhD LAB BLOOD ORDERABLES Final Result [facility] [address] [facility]. [address] * Vancomycin, random (10/08/2024 5:36 AM EDT) Vancomycin Random 16.0 ug/mL 10/08/2024 6:20 AM EDT [facility] Comment:Reference range not established for this test. Plasma 10/08/2024 5:36 AM EDT 10/08/2024 5:52 AM EDT us Jodi FreireD LAB BLOOD ORDERABLES Final Result Performing Organization Address City/[facility]/ZIP Co de Phone Number [facility] [address] [facility]. [address] * Urine Drug Confirmation (10/07/2024 10:50 PM EDT) BARBITURATES NOT PRESENT 10/09/2024 1:33 PM EDT [facility] BENZODIAZEPINES PRESENT 1:33 PM EDT [facility] Nordiazepam 3 ng/mL 10/09/2024 1:33 PM EDT [facility] Temazepam 6 ng/mL 10/09/2024 1:33 PM EDT [facility] CANNABINOIDS NOT PRESENT 10/09/2024 1:33 PM EDT [facility] CELLULAR TOWER CLIMBER STIMULANTS NOT PRESENT 1:33 PM EDT [facility] OPIOID ANALGESICS PRESENT 025 1:33 PM EDT [facility] Oxycodone 300 ng/mL 10/09/2024 1:33 PM EDT [facility] Oxymorphone 32 ng/mL 10/09/2024 1:33 PM EDT [facility] Tramadol >1000 ng/mL 10/09/2024 1:33 PM EDT [facility] OPIOID ANTAGONISTS NOT PRESENT 10/09 1:33 PM EDT [facility] SEDATIVES/MUSCLE RELAXANTS NOT PRESENT 10/09/2024 1:33 PM EDT [facility] TRICYCLIC ANTIDEPRESSANTS NOT PRESENT 10/09/2024 1:33 PM EDT [facility] Urine 10/07/2024 10:5 0 PM EDT 10/08/2024 3:00 AM EDT Gerri Peterson MD URINE ORDERABLES Final Result [facility] [address] * Giardia Cryptosporidium Antigens (10/07/2024 10:50 PM EDT) Cryptosporidium Ag Negative Negative 2024 7:59 AM EDT [facility] Giardia Ag Negative Negative 10/08/2024 7:59 AM EDT [facility] Comment: Detection of Giardia and Cryptosporidium antigen is more sensitive and specific than microscopy. Because antigens are shed continuously, repeat testing is rarely warranted. Feces 10/07/2024 10:5 0 PM EDT 10/08/2024 1:53 AM EDT Comment:F us Bisi Akella DO MICROBIOLOGY - GENERAL ORDERABLE S Final Result [facility] [address] [place] [id number], [facility] * (ABNORMAL) Urine Drug Screen Reflex to Confirmation (10/07/2024 10:50 PM EDT) Amphetamine, 500 ng/mL Cutoff Negative Negative 10/08/2024 3:00 AM EDT [facility] Barbiturates UR, 300 ng/mL Cutoff Negative Negative 10/08/2024 3:00 AM EDT [facility] Buprenorphine, 5 ng/mL Cutoff Negative Negative 10/08/2024 3:00 AM EDT [facility] Benzodiazepines UR, 300 ng/mL Cutoff Negative Negative 10/08/2024 3:00 AM EDT [facility] Cocaine UR, 300 ng/mL Cutoff Negative Negative 10/08/2024 3:00 AM EDT [facility] Methadone, UR, 300 ng/mL Cutoff Negative Negative 10/08/2024 3:00 AM EDT [facility] Opiates UR, 300 ng/mL Cutoff Negative Negative 10/08/2024 3:00 AM EDT [facility] Oxycodone, 100 ng/mL Cutoff Presumptive Positive(A) Negative 10/08/2024 3:00 AM EDT [facility] Tricyclic Antidepressants, 300 ng/mL Cutoff Negative Negative 10/08/2024 3:00 AM EDT [facility] Comment:This test has been d eveloped and its performance characteristics determined by [facility] which is certified under [...] Cutoff Negative Negative 10/08/2024 3:00 AM EDT [facility] Comment:This is a screening method only and may be associated with false positive and/or false negative results. Results are not definitive without additional confirmatory testing by mass spectrometry. Fentanyl, 2 ng/mL Cutoff Negative Negative 10/08/2024 3:00 AM EDT [facility] Comment:This test has been d eveloped and its performance characteristics determined by [facility] which is certified under [...] Gerri Peterson MD URINE ORDERABLES Final Result [facility] [address] * Comprehensive Drug Screen (10/07/2024 10:50 PM EDT) Creatinine, Ur CANCELED mg/dL 10/08/2024 7:09 AM EDT [facility] Comment:The released value 8 7.30 was canceled by YAQUELIN on 10/08/2024 07:09 BARBITURATES CANCELED [facility] Butalbital CANCELED [facility] Secobarbital [facility] LAB BENZODIAZEPINES CANCELED [facility] Alprazolam [facility] Clonazepam CANCELED [facility] Diazepam CANCELED [facility] Alpha-Hydroxyalprazo mcknight CANCELED [facility] Lorazepam CANCELED [facility] Midazolam CANCELED [facility] Nordiazepam [facility] Oxazepam CANCELED [facility] Temazepam CANCELED [facility] CANNABINOIDS CANCELED [facility] LAB THC-COOH CANCELED [facility] CELLULAR TOWER CLIMBER STIMULANTS CANCELED HE ALTH LAB Cocaine Metabolite(benzoylec gonine) CANCELED [facility] Amphetamine [facility] Methamphetamine [facility] MDA CANCELED [facility] MDEA CANCELED [facility] Phencyclindine (PCP) CANCELED [facility] OPIOID ANALGESICS CANCELED [facility] Heroin Metabolite(6-RAMONA) CANCELED [facility] Codeine CANCELED [facility] Morphine CANCELED [facility] Hydrocodone [facility]ELED [facility] Hydromorphone [facility]CELED [facility] LAB Oxycodone CANCELED [facility] Oxymorphone [facility] Meperidine CANCELED [facility] Normeperidine CANCELED [facility] LAB Methadone CANCELED [facility] Methadone Metabolite (EDDP) CANCELED [facility] Tramadol CANCELED [facility] Fentanyl CANCELED [facility] Norfentanyl [facility] Sufentanil CANCELED [facility] OPIOID ANTAGONISTS CANCELED [facility] Norbuprenorphine CANCELED [facility] Naltrexone CANCELED [facility] Naloxone CANCELED [facility] SEDATIVES/MUSCLE RELAXANTS CANCELED [facility] Carisoprodol CANCELED [facility] Meprobamate CANCELED [facility] H LAB TRICYCLIC ANTIDEPRESSANTS CANCELED [facility] Amitriptyline CANCELED [facility] LAB Clomipramine [facility]CELED [facility] Desipramine [facility] Doxepin CANCELED [facility] Imipramine CANCELED [facility] Nortriptyline CANCELED [facility] Urine Creatinine CANCELED mg/dL [facility] Nitrite CANCELED [facility] Glutaraldehyde CANCELED [facility] pH CANCELED 10/08/2024 7:09 AM EDT [facility] Comment:The released value 5 .6 was canceled by YAQUELIN on 10/08/2024 07:09 Specific [place] CANCELED 10/09/19 7:09 AM EDT [facility] Comment:The released value 1 .009 was canceled by YAQUELIN on 10/08/2024 07:09 Bleach CANCELED [facility] Pyridinium Chlorochromate CANCELED [facility] Urine 10/07/2024 10:5 0 PM EDT 10/08/2024 2:07 AM EDT [facility] - 10/08/2024 7:09 AM EDT See accn [id number] Gerri Peterson MD URINE ORDERABLES Edited Result - Final Performing Organization Address City/[facility]/ZIP Co de Phone Number [facility] [address] [facility]. [address] * Ova and Parasite Comprehensive w/ Giardia/Crypto (10/07/2024 10:50 PM EDT) O & P Method: Concentration and Trichrome Stain [facility] Results No Amoeba, Ova, Or Parasites Seen. -- O and P examination of additional specimens is recommended only for symptomatic patients, immunosuppressed patients or those with an appropriate travel history. [facility] Feces FECES / Unknown 10/07/2024 1 0:50 PM EDT 10/08/2024 1:53 AM EDT Comment:F Bisi Hernandez DO MICROBIOLOGY - GENERAL ORDERABLE S Final Result Performing Organization Address [facility] Co de Phone Number [facility] [address] [facility]. [address] * Enteric Pathogen Panel (10/07/2024 10:50 PM EDT) Pathologist [facility] [place] Campylobacter Group (C. ecoli, C. jejuni, C. trino) Not Detected Not Detected 10/08/2024 4:40 AM EDT [facility] Salmonella species Not Detected Not Detected 10/08/2024 4:40 AM EDT [facility] Shigella species Not Detected Not Detected 10/08/2024 4:40 AM EDT [facility] Vibrio Group (Vibrio cholerae, Vibrio parahaemolyticus) Not Detected Not Detected 10/08/2024 4:40 AM EDT [facility] Yersinia enterocolitica Not Detected Not Detected 10/08/2024 4:40 AM EDT [facility] Shiga toxin 1 Not Detected Not Detected 10/08/2024 4:40 AM EDT [facility] Shiga toxin 2 Not Detected Not Detected 10/08/2024 4:40 AM EDT [facility] Norovirus Not Detected Not Detected 10/08/2024 4:40 AM EDT [facility] Rotavirus Not Detected Not Detected 10/08/2024 4:40 AM EDT [facility] Comment: The Enteric Pathogen Panel [...] ORDERABLE S Final Result Performing Organization Address [facility] Co de Phone Number [facility] [address] [facility]. [address] * Hepatitis C Antibody (10/07/2024 6:38 PM EDT) HCV Ab Nonreactive Nonreactive 10/07/2024 7:56 PM EDT [facility] Comment:Health Department no tified in accordance with reportable infectious disease guidelines. Serum 10/07/2024 6:38 PM EDT 10/07/2024 6:52 PM EDT Narrative [facility] - 10/07/2024 7:56 PM EDT Antibodies to HCV not detected; does not exclude the possibility of exposure to HCV. Gerri Peterson MD LAB BLOOD ORDERABLES Final Resu lt Performing Organization Address [facility]/ZIP Co de Phone Number [facility] [address] * Hepatitis B Surface Antibody, Quantitati (10/07/2024 6:38 PM EDT) Hep B S Ab Nonreactive Nonreactive 10/07/2024 8:00 PM EDT [facility] HBSAB NUMBER 7.88 0.00 - 7.99 mIU/mL 10/07/2024 8:00 PM EDT [facility] Serum 10/07/2024 6:38 PM EDT 10/07/2024 6:52 PM EDT [facility] - 10/07/2024 8:00 PM EDT Individual is considered not immune to HBV infection. Gerri Peterson MD LAB BLOOD ORDERABLES Final Resu lt Performing Organization Address City/[facility]/ZIP Co de Phone Number [facility] [address] * Hepatitis B surface antigen (10/07/2024 6:38 PM EDT) Hep B Surface Ag Nonreactive Nonreactive 10/07/2024 7:51 PM EDT [facility] Comment:Health Department no tified in accordance with reportable infectious disease guidelines. Serum 10/07/2024 6:38 PM EDT 10/07/2024 6:52 PM EDT [facility] - 10/07/2024 7:51 PM EDT Specimen is considered negative for HBsAg. Result [facility] Gerri Peterson MD LAB BLOOD ORDERABLES Final Resu lt Performing Organization Address [facility] Co de Phone Number [facility] [address] [facility]. [address] * Hepatitis A Antibody Total (10/07/2024 6:38 PM EDT) Anti-HAV Total (IgG + IgM) Nonreactive 10/07/2024 7:53 PM EDT [facility] Serum 10/07/2024 6:38 PM EDT 10/07/2024 6:52 PM EDT [facility] - 10/07/2024 7:53 PM EDT HAV antibodies not detected Gerri Peterson MD LAB BLOOD ORDERABLES Final Resu lt Performing Organization Address City/[facility]/ZIP Co de Phone Number [facility] [address] [facility]. [address] * Hepatitis A IgM (10/07/2024 6:38 PM EDT) Hep A IgM Nonreactive Nonreactive 10/07/2024 7:46 PM EDT [facility] Serum 10/07/2024 6:38 PM EDT 10/07/2024 6:52 PM EDT Narrative [facility] - 10/07/2024 7:46 PM EDT IgM anti-HAV not detected. Does not exclude the possibility of exposure to or infection with HAV. Levels of IgM anti-HAV may be below the cut-off in early infection. us Gerri Peterson MD LAB BLOOD ORDERABLES Final Resu lt [facility] [address] * (ABNORMAL) Lipid Profile (10/07/2024 6:37 PM EDT) Non-HDL Cholesterol, Calculated See Note 0 - 129 mg/dL 10/07/2024 7:42 PM EDT [facility] Comment: Desirable: < 130 mg/dL Above Desirable: 130-159 mg/dL Borderline High: 160-189 mg/dL High: 190-219 mg/dL Very High: > 219 mg/dL Unable to calculate result either because contributing result(s) are outside of reportable range or are not available. Cholesterol, Total <25 0 - 200 mg/dL 10/07/2024 7:42 PM EDT [facility] Triglycerides 30 10 - 149 mg/dL 10/07/2024 7:42 PM EDT [facility] HDL 4(L) 60 - 92 mg/dL 10/07/2024 7:42 PM EDT [facility] Comment: LIPID PROFILE INTERPRETATION CHOLESTEROL,TOTAL(mg/dL) [...] Cholesterol See Note mg/dL 7:42 PM EDT [facility] Comment:Unable to calculate result either because contributing result(s) are outside of reportable range or are not available. Plasma 10/07/2024 6:37 PM EDT 10/07/2024 7:06 PM EDT [facility] - 10/07/2024 7:42 PM EDT LDL cholesterol calculated using the Friedewald equation. us Gerri Peterson MD LAB BLOOD ORDERABLES Final Resu lt [facility] [address] [place] [address], [facility] * (ABNORMAL) Alpha 1 Antitrypsin AAT Quant & Mutation (10/07/2024 6:37 PM EDT) A-1 Antitrypsin 99(L) 101 - 187 mg/dL 10/09/2024 4:28 AM EDT [facility] A-1 Antitrypsin Pheno Comment 10/10/2024 4:05 PM EDT [facility] Comment: A1A Phenotype is consistent with a heterozygous phenotype consisting of one M (normal) allele and one allele that cannot be identified at this time. The unknown allele is not consistent with Z (deficient), S (deficient), or F (deficient). MM Phenotype is considered to be normal , producing normal serum levels of [id number] inhibitor and not associated with clinical disease. [...] PM EDT 10/10/2024 4:08 PM EDT Narrative [facility] - 10/10/2024 4:08 PM EDT PERFORMED AT: [facility] [address] [id number] SUPERVISOR COFFEE: Bassam Khalil, PhD PHONE: [phone] PERFORMED AT: [facility] [address] [id number] SUPERVISOR COFFEE: Mandy Abdul MD PHONE: [phone] Gerri Peterson MD LAB BLOOD ORDERABLES Final Resu lt Performing Organization Address City/[facility]/ZIP Co de Phone Number [facility] [address] * (ABNORMAL) CMV IgG Antibody (10/07/2024 6:37 PM EDT) CMV IgG Positive(A ) Negative 10/07/2024 8:26 PM EDT [facility] CMV IGG NUM 8.40(H) 0.00 - 0.59 U/mL 10/07/2024 8:26 PM EDT [facility] Serum 10/07/2024 6:37 PM EDT 10/07/2024 6:50 PM EDT Gerri Peterson MD LAB BLOOD ORDERABLES Final Resu lt [facility] [address] * HIV-1 and HIV-2 Antibodies w Reflex (10/07/2024 6:37 PM EDT) Pathologist [facility] [place] HIV 1+2 AB/AGN Nonreactive Nonreactive 10/07/2024 7:54 PM EDT [facility] Serum 10/07/2024 6:37 PM EDT 10/07/2024 7:06 PM EDT Narrative [facility] - 10/07/2024 7:54 PM EDT \HIVRNR Gerri Peterson MD LAB BLOOD ORDERABLES Final Resu lt Performing Organization Address City/[facility]/ZIP Co de Phone Number [facility] [address] [facility]. [address] * TSH (Thyroid Stimulating Hormone) (10/07/2024 6:37 PM EDT) Pathologist [facility] [place] TSH 0.81 0.45 - 4.12 uIU/mL 10/07/2024 8:17 PM EDT [facility] Serum 10/07/2024 6:37 PM EDT 10/07/2024 6:50 PM EDT Gerri Peterson MD LAB BLOOD ORDERABLES Final Resu lt Performing Organization Address City/[facility] Co de Phone Number [facility] [address] [facility]. [address] * Katie-Watkins virus early antigen antibody, IgG (10/07/2024 6:37 PM EDT) Pathologist [facility] [place] EBV Early Antigen Ab, IgG <9.0 0.0 - 8.9 U/mL 10/09/2024 2:16 PM EDT [facility] Comment: Negative < 9.0 Equivocal 9.0 - 10.9 Positive >10.9 Serum Frozen 10/07/2024 6:37 PM EDT 10/09/2024 3:07 PM EDT Narrative [facility] - 10/09/2024 3:07 PM EDT PERFORMED AT: [address] [id number] SUPERVISOR COFFEE: Bassam Khalil, PhD PHONE: [phone] Gerri Peterson MD LAB BLOOD ORDERABLES Final Resu lt Performing Organization Address [facility] Co de Phone Number [facility] [address] [facility]. [address] * (ABNORMAL) Varicella zoster antibody, IgG (10/07/2024 6:37 PM EDT) Varicella IgG Positive( A) Negative S/CO 10/07/2024 8:34 PM EDT [facility] Comment:Result indicates the presence of detectable VZV IgG antibodies. A positive result is generally indicative of exposure to the pathogen or administration of specific immunoglobulins, but it is no indication of active infection or stage of disease. This test is not approved for determining vaccine-induced immunity to varicella zoster virus. VZV NUM 6.76(H) 0.00 - 0.99 S/CO 10/07/2024 8:34 PM EDT [facility] Serum 10/07/2024 6:37 PM EDT 10/07/2024 6:50 PM EDT Gerri Peterson MD LAB BLOOD ORDERABLES Final Resu lt Performing Organization Address [facility] Co de Phone Number [facility] [address] [facility]. [address] * Toxoplasma gondii antibody, IgG (10/07/2024 6:37 PM EDT) Toxoplasma Gondii IgG <3.0 0.0 - 7.1 IU/mL 10/09/2024 7:53 AM EDT [facility] Comment: Negative <7.2 Equivocal 7.2 - 8.7 Positive >8.7 Serum 10/07/2024 6:37 PM EDT 10/09/2024 8:07 AM EDT Narrative [facility] - 10/09/2024 8:07 AM EDT PERFORMED AT: [facility] [id number] SUPERVISOR COFFEE: Bassam Khalil, PhD PHONE: [phone] Gerri Peterson MD LAB BLOOD ORDERABLES Final Resu lt Performing Organization Address City/[facility]/ZIP Co de Phone Number [facility] [address] * Syphilis Screening (Trepia) (10/07/2024 6:37 PM EDT) Treponema Pallidum Negative Negative 10/07/2024 8:27 PM EDT [facility] Comment: No serological evidence of infection with Treponema pallidum (incubating or early primary syphilis cannot be excluded). Serum 10/07/2024 6:37 PM EDT 10/07/2024 6:50 PM EDT Gerri Peterson MD LAB BLOOD ORDERABLES Final Resu lt Performing Organization Address [facility]/ZIP Co de Phone Number [facility] [address] [facility] * Strongyloides Ab (10/07/2024 6:37 PM EDT) Strongyloides Ab Negative Negative 10/11/19 11:51 AM EDT [facility] Serum 10/07/2024 6:37 PM EDT 10/10/2024 12:07 PM EDT Narrative [facility] - 10/10/2024 12:07 PM EDT PERFORMED AT: [address] [id number] SUPERVISOR COFFEE: Mandy Abdul MD PHONE: [phone] Gerri Peterson MD LAB BLOOD ORDERABLES Final Resu lt Performing Organization Address City/[facility]/ZIP Co de Phone Number [facility] [address] [facility]. [address] * Phosphatidylethanol Confirmation, B (10/07/2024 6:37 PM EDT) PETH 16:0/18.1 (POPETH) <10 Cutoff: 10 ng/mL 10/10/2024 10:42 AM EDT [facility] Comment: Phosphatidylethanol (PEth) homologues [...] days a week) (Reference: Zhanna Grayson and Delcan Phillips 2018 J. Forensic Sci) PETH 16:0/18.2 (PLPETH) <10 Cutoff: 10 ng/mL 10/10/2024 10:42 AM EDT [facility] Comment: PEth 16:0/18:2 (PLPEth) Reference ranges are not well established PEth Interpretation Negative. 10/10 10:42 AM EDT [facility] Comment: ADDITIONAL INFORMATION This report is intended for use in clinical monitoring and management of patients. It is not intended for use in employment-related testing. This test was developed and its performance characteristics determined by [facility] in a manner consistent with CLIA requirements. This test has not been cleared or approved by the U.S. Food and Drug Administration. Test Performed by: [place] [address] [employer] Area Supervisor: Kathy Ortiz Ph.D.; CLIA# [id number] Whole Blood 10/07/2024 6:37 PM EDT 10/10/2024 10:42 AM EDT us Gerri Peterson MD LAB BLOOD ORDERABLES Final Resu lt [facility] [address] [place], [place] [address] * (ABNORMAL) MMR(IgG) Panel (Measles, Mumps, Rubella) (10/07/2024 6:37 PM EDT) Mumps IgG Positive 10/07/2024 8:26 PM EDT [facility] MUMPS IGG NUM 77.80(H) 0.0 - 8.9 U/mL 10/07/2024 8:26 PM EDT [facility] Rubella IgG Scr Positive 10/07/2024 8:28 PM EDT [facility] RUB NUM 3.04(H) 0.00 - 0.89 INDEX 10/07/2024 8:28 PM EDT [facility] Rubeola Ab, IgG Positive 10/07/2024 8:26 PM EDT [facility] RUB IGG NUM 192.00(H) 0.00 - 13.40 U/mL 10/07/2024 8:26 PM EDT [facility] Serum 10/07/2024 6:37 PM EDT 10/07/2024 6:50 PM EDT Narrative [facility] - 10/07/2024 8:28 PM EDT [...] ORDERABLES Final Resu lt Performing Organization Address [facility]/ZIP Co de Phone Number [facility] [address] * IgA (10/07/2024 6:37 PM EDT) IgA 227.0 70.0 - 400.0 mg/dL 10/08/2024 11:07 AM EDT [facility] Comment:Please interpret the se findings in conjunction with clinical findings, protein electrophoresis, and immunotyping/immunofixation results. Serum 10/07/2024 6:37 PM EDT 10/07/2024 6:50 PM EDT Gerri Peterson MD LAB BLOOD ORDERABLES Final Resu lt [facility] [address] * Ethanol, Serum (10/07/2024 6:37 PM EDT) Ethanol <10 0 - 10 mg/dL 10/07/2024 8:36 PM EDT [facility] Serum 10/07/2024 6:37 PM EDT 10/07/2024 6:50 PM EDT Gerri Peterson MD LAB BLOOD ORDERABLES Final Resu lt [facility] [address] * ABO/Rh - Second (10/07/2024 6:37 PM EDT) ABO Grouping O 10/07/2024 7:16 PM EDT [facility] Rh Type Positive 10/07/2024 7:16 PM EDT [facility] Blood 10/07/2024 6:37 PM EDT 10/07/2024 6:56 PM EDT Narrative [facility] - 10/07/2024 7:18 PM EDT This is not a duplicate order. It is required that ABO be drawn twice for LIVER TRANSPLANT Gerri Peterson MD BLOOD BANK TEST ORDERABLES Denisse l Result Performing Organization Address City/[facility]/ZIP Co de Phone Number [facility] [address] [facility]. [address] * ABO/Rh- Initial (10/07/2024 6:37 PM EDT) ABO Grouping O 10/07/2024 7:59 PM EDT [facility] Rh Type Positive 10/07/2024 7:59 PM EDT [facility] Blood 10/07/2024 6:37 PM EDT 10/07/2024 7:25 PM EDT Gerri Peterson MD BLOOD BANK TEST ORDERABLES Denisse l Result [facility] [address] [place] [address], [facility] * X-ray Mandible minimum 4-views (10/07/2024 6:19 [...] EXAM: US ABDOMEN COMPLETE EXAM: US DUPLEX [id number] COMPLETE INDICATION: elevated bilirubin COMPARISON: Ultrasound and [...] EXAM: US ABDOMEN COMPLETE EXAM: US DUPLEX [id number] COMPLETE INDICATION: elevated bilirubin COMPARISON: Ultrasound and [...] 4:26 PM EDT us Bisi Hernandez DO [facility] [place] ORDERABLES Final Result * US Duplex [id number] Comp (10/07/2024 3:48 PM EDT) Anatomical Region [...] EXAM: US ABDOMEN COMPLETE EXAM: US DUPLEX [id number] COMPLETE INDICATION: elevated bilirubin COMPARISON: Ultrasound and [...] EXAM: US ABDOMEN COMPLETE EXAM: US DUPLEX [id number] COMPLETE INDICATION: elevated bilirubin COMPARISON: Ultrasound and [...] PhD LAB BLOOD ORDERABLES Final Result [facility] [address] * (ABNORMAL) Hepatic Function Panel (10/07/2024 6:00 AM EDT) Total Bilirubin 9.7(H) 0.0 - 1.5 mg/dL 10/07/2024 7:10 AM EDT [facility] Bilirubin, Direct 5.21(H) 0.00 - 0.40 mg/dL 10/07/2024 7:10 AM EDT [facility] AST 39 13 - 39 U/L 10/07/2024 7:10 AM EDT [facility] ALT 18 7 - 52 U/L 10/07/2024 7:10 AM EDT [facility] Alkaline Phosphatase 98 36 - 125 U/L 10/07/2024 7:10 AM EDT [facility] Total Protein 4.8(L) 6.4 - 8.9 g/dL 10/07/2024 7:10 AM EDT [facility] Albumin 3.6 3.5 - 5.7 g/dL 10/07/2024 7:10 AM EDT [facility] Bilirubin, Indirect 4.49(H) 0.00 - 1.10 mg/dL 10/07/2024 7:10 AM EDT [facility] Plasma 10/07/2024 6:00 AM EDT 10/07/2024 6:39 AM EDT us Eileen Schroeder MD, PhD LAB BLOOD ORDERABLES Final Result [facility] [address] * Magnesium (10/07/2024 6:00 AM EDT) Magnesium 1.7 1.5 - 2.5 mg/dL 10/07/2024 7:10 AM EDT [facility] Plasma 10/07/2024 6:00 AM EDT 10/07/2024 6:39 AM EDT us Eileen Schroeder MD, PhD LAB BLOOD ORDERABLES Final Result Performing Organization Address [facility] Co de Phone Number [facility] [address] * (ABNORMAL) Renal Function Panel w/EGFR (10/07/2024 6:00 AM EDT) Sodium 132(L) 133 - 146 mmol/L 10/07/2024 7:10 AM EDT [facility] Potassium 3.9 3.5 - 5.3 mmol/L 10/07/2024 7:10 AM EDT [facility] Chloride 103 98 - 110 mmol/L 10/07/2024 7:10 AM EDT [facility] CO2 19(L) 21 - 33 mmol/L 10/07/2024 7:10 AM EDT [facility] Anion Gap 10 3 - 16 mmol/L 10/07/2024 7:10 AM EDT [facility] BUN 64(H) 7 - 25 mg/dL 10/07/2024 7:10 AM EDT [facility] Creatinine 3.38(H) 0.60 - 1.30 mg/dL 10/07/2024 7:10 AM EDT [facility] Glucose 111(H) 70 - 100 mg/dL 10/07/2024 7:10 AM EDT [facility] Calcium 9.1 8.6 - 10.3 mg/dL 10/07/2024 7:10 AM EDT [facility] Phosphorus 4.2 2.1 - 4.7 mg/dL 10/07/2024 7:10 AM EDT [facility] Albumin 3.6 3.5 - 5.7 g/dL 10/07/2024 7:10 AM EDT [facility] Osmolality, Calculated 293 278 - 305 mOsm/kg 10/07/2024 7:10 AM EDT [facility] EGFR 22 10/07/2024 7:10 AM EDT [facility] Comment:As of 2021, the [...] PhD LAB BLOOD ORDERABLES Final Result [facility] [address] [id number] * (ABNORMAL) CBC (10/07/2024 6:00 AM EDT) WBC 3.3(L) 3.8 - 10.8 10E3/uL 10/07/2024 7:55 AM EDT [facility] RBC 2.06(L) 4.20 - 5.80 10E6/uL 10/07/2024 7:55 AM EDT [facility] Hemoglobin 7.4(L) 13.2 - 17.1 g/dL 10/07/2024 7:55 AM EDT [facility] Hematocrit 21.5(L) 38.5 - 50.0 % 10/07/2024 7:55 AM EDT [facility] MCV 104.1(H) 80.0 - 100.0 fL 10/07/2024 7:55 AM EDT [facility] MCH 35.8(H) 27.0 - 33.0 pg 10/07/2024 7:55 AM EDT [facility] MCHC 34.4 32.0 - 36.0 g/dL 10/07/2024 7:55 AM EDT [facility] RDW 17.5(H) 11.0 - 15.0 % 10/07/2024 7:55 AM EDT [facility] Platelets 35(L) 140 - 400 10E3/uL 10/07/2024 7:55 AM EDT [facility] Comment: Specimen checked for clots. None detected. Slide Reviewed for PLT Clumps. None Seen. _Platelet Morphology Normal _Platelets Appear Decreased Platelet Estimate Decreased 10/07/2024 7:55 AM EDT [facility] MPV 8.0 7.5 - 11.5 fL 10/07/2024 7:55 AM EDT [facility] Whole Blood 10/07/2024 6:00 AM EDT 10/07/2024 6:40 AM EDT Jose [facility] - 10/07/2024 7:55 AM EDT Peripheral blood smear was scanned per review criteria approved by the laboratory anesthesiology medical doctor. Eileen Schroeder MD, PhD LAB BLOOD ORDERABLES Final Result Performing Organization Address City/State/[facility] Co de Phone Number [facility] [address] [place], [place] [address] * AFP Tumor Marker (10/07/2024 6:00 AM EDT) AFP-Tumor Marker 2.0 0.0 - 9.0 ng/mL 10/07/2024 7:11 AM EDT [facility] Serum 10/07/2024 6:00 AM EDT 10/07/2024 6:39 AM EDT Jose [facility] - 10/07/2024 7:11 AM EDT The testing method for AFP is a chemiluminescent immunoassay manufactured by [employer] Concentrations of AFP obtained by different assay methods or kits may vary and cannot be used interchangeably. AFP results cannot be interpreted as absolute evidence of the presence or absence of malignant disease. Shila Rivera MD LAB BLOOD ORDERABLES Final Resul t Performing Organization Address [facility] de Phone Number [facility] [address] [facility]. [address] * Vancomycin, random (10/07/2024 6:00 AM EDT) Vancomycin Random 21.1 ug/mL 10/07/2024 7:08 AM EDT [facility] Comment:Reference range not established for this test. Plasma 10/07/2024 6:00 AM EDT 10/07/2024 6:39 AM EDT Kiet Gardiner PharmD LAB BLOOD ORDERABLES Final Re sult Performing Organization Address [facility] Co de Phone Number [facility] [address] * Osmolality (10/06/2024 2:50 PM EDT) Osmolality, Measured 304 278 - 305 mOsm/kg 10/06/2024 3:49 PM EDT [facility] Serum 10/06/2024 2:50 PM EDT 10/06/2024 2:56 PM EDT Chari Vanegas MD LAB BLOOD ORDERABLES Final Resul t Performing Organization Address [facility] de Phone Number [facility] [address] [facility]. [address] * CT Head WO contrast (10/06/2024 [...] Ur <15 mmol/L 10/06/2024 1:56 PM EDT [facility] Comment:Reference range not established for this test. Urine 10/06/2024 1:25 PM EDT 10/06/2024 1:32 PM EDT us Chari Vanegas MD URINE ORDERABLES Final Result Performing Organization Address [facility] de Phone Number [facility] [address] [facility]. [address] * Potassium, urine, random (10/06/2024 1:25 PM EDT) Potassium Urine Random 50.0 mmol/L 10/06/2024 1:56 PM EDT [facility] Comment:Reference range not established for this test. Urine 10/06/2024 1:25 PM EDT 10/06/2024 1:32 PM EDT us Chari Vanegas MD URINE ORDERABLES Final Result Performing Organization Address [facility] de Phone Number [facility] [address] [facility]. [address] * Sodium, urine, random (10/06/2024 1:25 PM EDT) Sodium, Ur <10 mmol/L 10/06/2024 1:56 PM EDT [facility] Comment:Reference range not established for this test. Urine 10/06/2024 1:25 PM EDT 10/06/2024 1:32 PM EDT us Chari Vanegas MD URINE ORDERABLES Final Result Performing Organization Address [facility] de Phone Number [facility] [address] [facility]. [address] * Creatinine, Urine, Random (10/06/2024 1:25 PM EDT) Creatinine, Urine 87.40 mg/dL 10/06/2024 1:56 PM EDT [facility] Comment:Reference range not established for this test. Urine 10/06/2024 1:25 PM EDT 10/06/2024 1:32 PM EDT us Chari Vanegas MD URINE ORDERABLES Final Result [facility] [address] * Osmolality, Urine (10/06/2024 1:25 PM EDT) Osmolality, Ur 386 50 - 1,200 mOsm/kg 10/06/2024 1:55 PM EDT [facility] Urine 10/06/2024 1:25 PM EDT 10/06/2024 1:32 PM EDT us Chari Vanegas MD URINE ORDERABLES Final Result Performing Organization Address [facility] Co de Phone Number [facility] [address] [facility]. [address] * Urine Drug Confirmation (10/06/2024 11:51 AM EDT) BARBITURATES NOT PRESENT 10/09/2024 3:23 PM EDT [facility] Comment:Results were recheck ed. BENZODIAZEPINES PRESENT 3:23 PM EDT [facility] Nordiazepam 3 ng/mL 10/09/2024 3:23 PM EDT [facility] Comment:Results were recheck ed. Temazepam 8 ng/mL 10/09/2024 3:23 PM EDT [facility] Comment:Results were recheck ed. CANNABINOIDS NOT PRESENT 10/09/2024 3:23 PM EDT [facility] CELLULAR TOWER CLIMBER STIMULANTS NOT PRESENT 3:23 PM EDT [facility] OPIOID ANALGESICS PRESENT 025 3:23 PM EDT [facility] Oxycodone 329 ng/mL 10/09/2024 3:23 PM EDT [facility] Oxymorphone 61 ng/mL 10/09/2024 3:23 PM EDT [facility] Tramadol >1000 ng/mL 10/09/2024 3:23 PM EDT [facility] OPIOID ANTAGONISTS NOT PRESENT 10/09 3:23 PM EDT [facility] SEDATIVES/MUSCLE RELAXANTS NOT PRESENT 10/09/2024 3:23 PM EDT [facility] TRICYCLIC ANTIDEPRESSANTS NOT PRESENT 10/09/2024 3:23 PM EDT [facility] Urine 10/06/2024 11:5 1 AM EDT 10/06/2024 1:13 PM EDT us Bisi Hernandez DO URINE ORDERABLES Final Result [facility] [address] [place] [address], [facility] * (ABNORMAL) Urine Drug Screen Reflex to Confirmation (10/06/2024 11:51 AM EDT) Amphetamine, 500 ng/mL Cutoff Negative Negative 10/06/2024 1:13 PM EDT [facility] Barbiturates UR, 300 ng/mL Cutoff Negative Negative 10/06/2024 1:13 PM EDT [facility] Buprenorphine, 5 ng/mL Cutoff Negative Negative 10/06/2024 1:13 PM EDT [facility] Benzodiazepines UR, 300 ng/mL Cutoff Negative Negative 10/06/2024 1:13 PM EDT [facility] Cocaine UR, 300 ng/mL Cutoff Negative Negative 10/06/2024 1:13 PM EDT [facility] Methadone, UR, 300 ng/mL Cutoff Negative Negative 10/06/2024 1:13 PM EDT [facility] Opiates UR, 300 ng/mL Cutoff Negative Negative 10/06/2024 1:13 PM EDT [facility] Oxycodone, 100 ng/mL Cutoff Presumptive Positive(A) Negative 10/06/2024 1:13 PM EDT [facility] Tricyclic Antidepressants, 300 ng/mL Cutoff Negative Negative 10/06/2024 1:13 PM EDT [facility] Comment:This test has been d eveloped and its performance characteristics determined by [facility] which is certified under [...] Cutoff Negative Negative 10/06/2024 1:13 PM EDT [facility] Comment:This is a screening method only and may be associated with false positive and/or false negative results. Results are not definitive without additional confirmatory testing by mass spectrometry. Fentanyl, 2 ng/mL Cutoff Negative Negative 10/06/2024 1:13 PM EDT [facility] Comment:This test has been d eveloped and its performance characteristics determined by [facility] which is certified under [...] AM EDT 10/06/2024 11:58 AM EDT Narrative [facility] - 10/06/2024 1:13 PM EDT CONFIRMATION TO FOLLOW [employer] Akella DO URINE ORDERABLES Final Result Performing Organization Address City/[facility]/ZIP Co de Phone Number [facility] [address] * Chloride, urine, random (10/06/2024 11:51 AM EDT) Chloride, Ur <15 mmol/L 10/06/2024 1:13 PM EDT [facility] Comment:Reference range not established for this test. Urine 10/06/2024 11:5 1 AM EDT 10/06/2024 11:57 AM EDT [email or web address] DO URINE ORDERABLES Final Result Performing Organization Address City/[facility] Co de Phone Number [facility] [address] * Potassium, urine, random (10/06/2024 11:51 AM EDT) Potassium Urine Random 49.0 mmol/L 10/06/2024 1:13 PM EDT [facility] Comment:Reference range not established for this test. Urine 10/06/2024 11:5 1 AM EDT 10/06/2024 11:57 AM EDT Bisi Akella DO URINE ORDERABLES Final Result [facility] [address] * Sodium, urine, random (10/06/2024 11:51 AM EDT) Sodium, Ur <10 mmol/L 10/06/2024 1:13 PM EDT [facility] Comment:Reference range not established for this test. Urine 10/06/2024 11:5 1 AM EDT 10/06/2024 11:57 AM EDT Bisi Akana maría DO URINE ORDERABLES Final Result Performing Organization Address [facility] Co de Phone Number [facility] [address] * Urinalysis w/Rfl to Microscopic (10/06/2024 11:51 AM EDT) Color, UA Yellow Yellow,Straw 10/06/2024 12:25 PM EDT [facility] Clarity, UA Clear Clear 10/06/2024 12:25 PM EDT [facility] Specific [place], UA 1.014 1.005 - 1.035 10/06/2024 12:25 PM EDT [facility] pH, UA 6.0 5.0 - 8.0 10/06/2024 12:25 PM EDT [facility] Protein, UA Negative Negative mg/dL 10/06/2024 12:25 PM EDT [facility] Glucose, UA Negative Negative mg/dL 10/06/2024 12:25 PM EDT [facility] Ketones, UA Negative Negative mg/dL 10/06/2024 12:25 PM EDT [facility] Bilirubin, UA Negative Negative 10/06/2024 12:25 PM EDT [facility] Blood, UA Negative Negative 10/06/2024 12:25 PM EDT [facility] Nitrite, UA Negative Negative 10/06/2024 12:25 PM EDT [facility] Urobilinogen, UA <2.0 0.2 - 1.9 mg/dL 10/06/2024 12:25 PM EDT [facility] Leukocyte Esterase, UA Negative Negative 10/06/2024 12:25 PM EDT [facility] Urine 10/06/2024 11:5 1 AM EDT 10/06/2024 11:57 AM EDT Narrative [facility] - 10/06/2024 12:25 PM EDT Microscopic testing is not performed when the dipstick is negative for blood, leukocyte, protein and nitrite. us Bisi Hernandez DO URINE ORDERABLES Final Result Performing Organization Address City/[facility]/ZIP Co de Phone Number [facility] [address] * Lactic Acid, STAT (10/06/2024 7:38 AM EDT) Lactate 0.9 0.5 - 2.2 mmol/L 10/06/2024 8:05 AM EDT [facility] Plasma 10/06/2024 7:38 AM EDT 10/06/2024 7:42 AM EDT Chari Vanegas MD LAB BLOOD ORDERABLES Final Resul t Performing Organization Address City/[facility]/ZIP Co de Phone Number [facility] [address] [facility]. [address] * (ABNORMAL) CBC, STAT (10/06/2024 7:37 AM EDT) WBC 5.6 3.8 - 10.8 10E3/uL 10/06/2024 8:22 AM EDT [facility] RBC 2.50(L) 4.20 - 5.80 10E6/uL 10/06/2024 8:22 AM EDT [facility] Hemoglobin 9.0(L) 13.2 - 17.1 g/dL 10/06/2024 8:22 AM EDT [facility] Hematocrit 25.3(L) 38.5 - 50.0 % 10/06/2024 8:22 AM EDT [facility] MCV 101.2(H) 80.0 - 100.0 fL 10/06/2024 8:22 AM EDT [facility] MCH 36.0(H) 27.0 - 33.0 pg 10/06/2024 8:22 AM EDT [facility] MCHC 35.6 32.0 - 36.0 g/dL 10/06/2024 8:22 AM EDT [facility] RDW 17.7(H) 11.0 - 15.0 % 10/06/2024 8:22 AM EDT [facility] Platelets 52(L) 140 - 400 10E3/uL 10/06/2024 8:22 AM EDT [facility] Comment: Specimen checked for clots. None detected. Slide Reviewed for PLT Clumps. None Seen. MPV 8.2 7.5 - 11.5 fL 10/06/2024 8:22 AM EDT [facility] Whole Blood 10/06/2024 7:37 AM EDT 10/06/2024 7:43 AM EDT us Chari Vanegas MD LAB BLOOD ORDERABLES Final Resul t [facility] [address] * (ABNORMAL) Comprehensive Metabolic Panel (10/06/2024 7:37 AM EDT) Sodium 129(L) 133 - 146 mmol/L 10/06/2024 8:16 AM EDT [facility] Potassium 4.4 3.5 - 5.3 mmol/L 10/06/2024 8:16 AM EDT [facility] Chloride 100 98 - 110 mmol/L 10/06/2024 8:16 AM EDT [facility] CO2 18(L) 21 - 33 mmol/L 10/06/2024 8:16 AM EDT [facility] Anion Gap 11 3 - 16 mmol/L 10/06/2024 8:16 AM EDT [facility] BUN 62(H) 7 - 25 mg/dL 10/06/2024 8:16 AM EDT [facility] Creatinine 3.40(H) 0.60 - 1.30 mg/dL 10/06/2024 8:16 AM EDT [facility] Glucose 98 70 - 100 mg/dL 10/06/2024 8:16 AM EDT [facility] Calcium 9.5 8.6 - 10.3 mg/dL 10/06/2024 8:16 AM EDT [facility] Total Bilirubin 14.3(H) 0.0 - 1.5 mg/dL 10/06/2024 8:16 AM EDT [facility] AST 57(H) 13 - 39 U/L 10/06/2024 8:16 AM EDT [facility] ALT 29 7 - 52 U/L 10/06/2024 8:16 AM EDT [facility] Alkaline Phosphatase 158(H) 36 - 125 U/L 10/06/2024 8:16 AM EDT [facility] Total Protein 5.6(L) 6.4 - 8.9 g/dL 10/06/2024 8:16 AM EDT [facility] Albumin 3.6 3.5 - 5.7 g/dL 10/06/2024 8:16 AM EDT [facility] Osmolality, Calculated 286 278 - 305 mOsm/kg 10/06/2024 8:16 AM EDT [facility] EGFR 22 10/06/2024 8:16 AM EDT [facility] Comment:As of 2021, the [...] MD LAB BLOOD ORDERABLES Final Resul t [facility] [address] [place] [id number] * (ABNORMAL) Venous Blood Gas, Line/Syringe, STAT (10/06/2024 7:37 AM EDT) PH-Line Draw 7.27(L) 7.32 - 7.42 10/06/2024 7:46 AM EDT [facility] PCO2-Line Draw 36(L) 41 - 51 mm Hg 10/06/2024 7:46 AM EDT [facility] PO2-Line Draw 44(H) 25 - 40 mm Hg 10/06/2024 7:46 AM EDT [facility] HCO3-Line Draw 17(L) 24 - 28 mmol/L 10/06/2024 7:46 AM EDT [facility] CO2 Content-Line Draw 18(L) 25 - 29 mmol/L 10/06/2024 7:46 AM EDT [facility] Base Excess-Line Draw -9.6(L) -2.0 - 3.0 mmol/L 10/06/2024 7:46 AM EDT [facility] %HBO2-Line Draw 69.8 40.0 - 70.0 % 10/06/2024 7:46 AM EDT [facility] Carboxyhgb-Ludivina e Draw 0.7 % 10/06/2024 7:46 AM EDT [facility] Comment: CARBOXYHEMOGLOBIN (CO) REFERENCE RANGES: Non-Smokers: <2 % Smokers: <8 % TOXIC: >20 % Methemoglobin- Line Draw 0.3 0.0 - 1.5 % 10/06/2024 7:46 AM EDT [facility] Reduced Hemoglobin-Ludivina e Draw 29.2(H) 0.0 - 5.0 % 10/06/2024 7:46 AM EDT [facility] Venous, Line Draw 10/06/2024 7:37 AM EDT 10/06/2024 7:43 AM EDT us Chari Vanegas MD LAB BLOOD ORDERABLES Final Resul t Performing Organization Address City/[facility]/ZIP Co de Phone Number [facility] [address] [place] [address], [facility] * (ABNORMAL) Venous Blood Gas, Line/Syringe, STAT (10/06/2024 4:03 AM EDT) PH-Line Draw 7.21(L) 7.32 - 7.42 10/06/2024 4:16 AM EDT [facility] PCO2-Line Draw 41 41 - 51 mm Hg 10/06/2024 4:16 AM EDT [facility] PO2-Line Draw 32 25 - 40 mm Hg 10/06/2024 4:16 AM EDT [facility] HCO3-Line Draw 16(L) 24 - 28 mmol/L 10/06/2024 4:16 AM EDT [facility] CO2 Content-Line Draw 18(L) 25 - 29 mmol/L 10/06/2024 4:16 AM EDT [facility] Base Excess-Line Draw -10.8(L) -2.0 - 3.0 mmol/L 10/06/2024 4:16 AM EDT [facility] %HBO2-Line Draw 47.5 40.0 - 70.0 % 10/06/2024 4:16 AM EDT [facility] Carboxyhgb-Ludivina e Draw 2.0 % 10/06/2024 4:16 AM EDT [facility] Comment: CARBOXYHEMOGLOBIN (CO) REFERENCE RANGES: Non-Smokers: <2 % Smokers: <8 % TOXIC: >20 % Methemoglobin- Line Draw 0.7 0.0 - 1.5 % 10/06/2024 4:16 AM EDT [facility] Reduced Hemoglobin-Ludivina e Draw 49.8(H) 0.0 - 5.0 % 10/06/2024 4:16 AM EDT [facility] Venous, Line Draw 10/06/2024 4:03 AM EDT 10/06/2024 4:12 AM EDT Bisi Hernandez DO LAB BLOOD ORDERABLES Final Resul t [facility] [address] * (ABNORMAL) Protime-INR (10/06/2024 4:01 AM EDT) Protime 21.3(H) 12.1 - 15.1 seconds 10/06/2024 4:40 AM EDT [facility] INR 1.8(H) 0.9 - 1.1 10/06/2024 4:40 AM EDT [facility] Comment: RECOMMENDED THERAPEUTIC RANGES USING INR : Stable oral anticoagulant therapy: 2.0 - 3.0 Mechanical prosthetic heart valve: 2.5 - 3.5 Recurrent acute myocardial infarction: 2.5 - 3.5 Plasma 10/06/2024 4:01 AM EDT 10/06/2024 4:11 AM EDT us Bisi Hernandez DO LAB BLOOD ORDERABLES Final Resul t [facility] [address] [facility]. [address] * (ABNORMAL) Hepatic Function Panel, AM (10/06/2024 4:01 AM EDT) Total Bilirubin 14.7(H) 0.0 - 1.5 mg/dL 10/06/2024 4:57 AM EDT [facility] Bilirubin, Direct 7.08(H) 0.00 - 0.40 mg/dL 10/06/2024 4:57 AM EDT [facility] AST 60(H) 13 - 39 U/L 10/06/2024 4:57 AM EDT [facility] ALT 31 7 - 52 U/L 10/06/2024 4:57 AM EDT [facility] Alkaline Phosphatase 162(H) 36 - 125 U/L 10/06/2024 4:57 AM EDT [facility] Total Protein 5.3(L) 6.4 - 8.9 g/dL 10/06/2024 4:57 AM EDT [facility] Albumin 3.4(L) 3.5 - 5.7 g/dL 10/06/2024 4:57 AM EDT [facility] Bilirubin, Indirect 7.62(H) 0.00 - 1.10 mg/dL 10/06/2024 4:57 AM EDT [facility] Plasma 10/06/2024 4:01 AM EDT 10/06/2024 4:22 AM EDT Bisi AkORVIBO DO LAB BLOOD ORDERABLES Final Resul t Performing Organization Address City/[facility]/ZIP Co de Phone Number [facility] [address] [facility]. [address] * Magnesium (10/06/2024 4:01 AM EDT) Magnesium 1.8 1.5 - 2.5 mg/dL 10/06/2024 4:57 AM EDT [facility] Plasma 10/06/2024 4:01 AM EDT 10/06/2024 4:22 AM EDT [employer] DO LAB BLOOD ORDERABLES Final Resul t Performing Organization Address [facility] de Phone Number [facility] [address] * (ABNORMAL) Renal Function Panel w/EGFR (10/06/2024 4:01 AM EDT) Sodium 129(L) 133 - 146 mmol/L 10/06/2024 4:57 AM EDT [facility] Potassium 4.7 3.5 - 5.3 mmol/L 10/06/2024 4:57 AM EDT [facility] Chloride 100 98 - 110 mmol/L 10/06/2024 4:57 AM EDT [facility] CO2 16(L) 21 - 33 mmol/L 10/06/2024 4:57 AM EDT [facility] Anion Gap 13 3 - 16 mmol/L 10/06/2024 4:57 AM EDT [facility] BUN 61(H) 7 - 25 mg/dL 10/06/2024 4:57 AM EDT [facility] Creatinine 3.49(H) 0.60 - 1.30 mg/dL 10/06/2024 4:57 AM EDT [facility] Glucose 104(H) 70 - 100 mg/dL 10/06/2024 4:57 AM EDT [facility] Calcium 9.2 8.6 - 10.3 mg/dL 10/06/2024 4:57 AM EDT [facility] Phosphorus 5.3(H) 2.1 - 4.7 mg/dL 10/06/2024 4:57 AM EDT [facility] Albumin 3.4(L) 3.5 - 5.7 g/dL 10/06/2024 4:57 AM EDT [facility] Osmolality, Calculated 286 278 - 305 mOsm/kg 10/06/2024 4:57 AM EDT [facility] EGFR 22 10/06/2024 4:57 AM EDT [facility] Comment:As of 2021, the [...] DO LAB BLOOD ORDERABLES Final Resul t [facility] [address] [place] [address], [facility] * (ABNORMAL) CBC (10/06/2024 4:01 AM EDT) WBC 7.6 3.8 - 10.8 10E3/uL 10/06/2024 5:16 AM EDT [facility] RBC 2.77(L) 4.20 - 5.80 10E6/uL 10/06/2024 5:16 AM EDT [facility] Hemoglobin 10.1(L) 13.2 - 17.1 g/dL 10/06/2024 5:16 AM EDT [facility] Hematocrit 28.4(L) 38.5 - 50.0 % 10/06/2024 5:16 AM EDT [facility] MCV 102.4(H) 80.0 - 100.0 fL 10/06/2024 5:16 AM EDT [facility] MCH 36.4(H) 27.0 - 33.0 pg 10/06/2024 5:16 AM EDT [facility] MCHC 35.5 32.0 - 36.0 g/dL 10/06/2024 5:16 AM EDT [facility] RDW 18.0(H) 11.0 - 15.0 % 10/06/2024 5:16 AM EDT [facility] Platelets 53(L) 140 - 400 10E3/uL 10/06/2024 5:16 AM EDT [facility] Comment:Specimen checked for clots. None detected. MPV 8.4 7.5 - 11.5 fL 10/06/2024 5:16 AM EDT [facility] Whole Blood 10/06/2024 4:01 AM EDT 10/06/2024 4:11 AM EDT us Bisi Hernandez DO LAB BLOOD ORDERABLES Final Resul t [facility] [address] * Hepatitis C Antibody (10/06/2024 4:01 AM EDT) HCV Ab Nonreactive Nonreactive 10/06/2024 5:12 AM EDT [facility] Comment:Health Department no tified in accordance with reportable infectious disease guidelines. Serum 10/06/2024 4:01 AM EDT 10/06/2024 4:11 AM EDT Narrative [facility] - 10/06/2024 5:12 AM EDT Antibodies to HCV not detected; does not exclude the possibility of exposure to HCV. iLost LAB BLOOD ORDERABLES Final Resul t [facility] [address] [facility]. [address] * (ABNORMAL) Hepatitis B Surface Antibody, Quantitati (10/06/2024 4:01 AM EDT) Hep B S Ab Reactive( A) Nonreactive 10/06/2024 5:16 AM EDT [facility] HBSAB NUMBER 11.50(H) 0.00 - 7.99 mIU/mL 10/06/2024 5:16 AM EDT [facility] Serum 10/06/2024 4:01 AM EDT 10/06/2024 4:11 AM EDT Narrative [facility]ALTH LAB - 10/06/2024 5:16 AM EDT Individual is considered immune to HBV infection. iLost LAB BLOOD ORDERABLES Final Resul t Performing Organization Address [facility]/ZIP Co de Phone Number [facility] [address] [facility]. [address] * Hepatitis B surface antigen (10/06/2024 4:01 AM EDT) Hep B Surface Ag Nonreactive Nonreactive 10/06/2024 5:07 AM EDT [facility] Comment:Health Department no tified in accordance with reportable infectious disease guidelines. Serum 10/06/2024 4:01 AM EDT 10/06/2024 4:11 AM EDT [facility] - 10/06/2024 5:07 AM EDT Specimen is considered negative for HBsAg. iLost LAB BLOOD ORDERABLES Final Resul t [facility] [address] [facility]. [address] * Hepatitis A Antibody Total (10/06/2024 4:01 AM EDT) Anti-HAV Total (IgG + IgM) Nonreactive 10/06/2024 5:08 AM EDT [facility] Serum 10/06/2024 4:01 AM EDT 10/06/2024 4:11 AM EDT [facility] - 10/06/2024 5:08 AM EDT HAV antibodies not detected iLost LAB BLOOD ORDERABLES Final Resul t Performing Organization Address [facility] Co de Phone Number [facility] [address] [facility]. [address] * Hepatitis A IgM (10/06/2024 4:01 AM EDT) Hep A IgM Nonreactive Nonreactive 10/06/2024 5:02 AM EDT [facility] Serum 10/06/2024 4:01 AM EDT 10/06/2024 4:11 AM EDT [facility] - 10/06/2024 5:02 AM EDT IgM anti-HAV not detected. Does not exclude the possibility of exposure to or infection with HAV. Levels of IgM anti-HAV may be below the cut-off in early infection. iLost LAB BLOOD ORDERABLES Final Resul t Performing Organization Address [facility] Co de Phone Number [facility] [address] * (ABNORMAL) Salicylate Level (10/06/2024 4:01 AM EDT) Salicylate Lvl <3(L) 10 - 30 mg/dL 10/06/2024 4:58 AM EDT [facility] Serum 10/06/2024 4:01 AM EDT 10/06/2024 4:22 AM EDT iLost LAB BLOOD ORDERABLES Final Resul t Performing Organization Address City/[facility] Co de Phone Number [facility] [address] [facility]. [address] * AFP Tumor Marker (10/06/2024 4:01 AM EDT) [facility] AFP-Tumor Marker 2.6 0.0 - 9.0 ng/mL 10/06/2024 4:55 AM EDT [facility] Serum 10/06/2024 4:01 AM EDT 10/06/2024 4:22 AM EDT Narrative [facility] - 10/06/2024 4:55 AM EDT The testing method for AFP is a chemiluminescent immunoassay manufactured by [employer] Concentrations of AFP obtained by different assay methods or kits may vary and cannot be used interchangeably. AFP results cannot be interpreted as absolute evidence of the presence or absence of malignant disease. us Bisi Hernandez DO LAB BLOOD ORDERABLES Final Resul t [facility] [address] [facility]. [address] * Upper Respiratory Viral/Bacterial Panel-COMMUNITY LIVING INSTRUCTOR Only (10/06/2024 3:12 AM EDT) [facility] Adenovirus Not Detected Not Detected 10/06/2024 11:38 PM EDT [facility] Coronavirus (229E,HKU1,NL63,OC 43) Not Detected Not Detected 10/06/2024 11:38 PM EDT [facility] SARS-CoV-2 Not Detected Not Detected 10/06/2024 11:38 PM EDT [facility] Human Metapneumovirus Not Detected Not Detected 10/06/2024 11:38 PM EDT [facility] Human Rhinovirus/Enterov irus Not Detected Not Detected 10/06/2024 11:38 PM EDT [facility] Influenza A Not Detected Not Detected 10/06/2024 11:38 PM EDT [facility] Influenza A H1 Not Detected Not Detected 10/06/2024 11:38 PM EDT [facility] Influenza A/H1-2009 Not Detected Not Detected 10/06/2024 11:38 PM EDT [facility] Influenza A H3 Not Detected Not Detected 10/06/2024 11:38 PM EDT [facility] Influenza B Not Detected Not Detected 10/06/2024 11:38 PM EDT [facility] Parainfluenza 1 Not Detected Not Detected 10/06/2024 11:38 PM EDT [facility] Parainfluenza 2 Not Detected Not Detected 10/06/2024 11:38 PM EDT [facility] Parainfluenza 3 Not Detected Not Detected 10/06/2024 11:38 PM EDT [facility] Parainfluenza 4 Not Detected Not Detected 10/06/2024 11:38 PM EDT [facility] Resp. Syncycial Virus A Not Detected Not Detected 10/06/2024 11:38 PM EDT [facility] Resp. Syncycial Virus B Not Detected Not Detected 10/06/2024 11:38 PM EDT [facility] Chlamydia pneumoniae Not Detected Not Detected 10/06/2024 11:38 PM EDT [facility] Mycoplasma pneumoniae Not Detected Not Detected 10/06/2024 11:38 PM EDT [facility] Comment: The Respiratory Viral-Bacterial Panel [...] have been sent to the [facility] in accordance with state requirements. For a fact sheet for healthcare providers, see https://www.fda.gov/media/376370/download. For a fact sheet for patients, see https://www.fda.gov/media/822227/download. Nasopharyngeal Swab NASOPHARYNGEAL SWAB / Unknown 10/06/2024 3:12 AM EDT 10/06/2024 5:41 PM EDT Comment:COMMUNITY LIVING INSTRUCTOR us Bisi Hernandez DO BODY FLUIDS AND STOOLS ORDERABLE S Final Result [facility] [address] [place] [id number], [facility] * X-ray Portable Chest (10/06/2024 1:16 AM [...] at 10/06/2024 2:33 AM EDT Bisi Hernandez IMG DIAGNOSTIC IMAGING ORDERABLE S Final Result * Phosphatidylethanol Confirmation, B (10/06/2024 1:04 AM EDT) PETH 16:0/18.1 (POPETH) <10 Cutoff: 10 ng/mL 10/10/2024 3:11 AM EDT [facility] Comment: Phosphatidylethanol (PEth) homologues [...] Cutoff: 10 ng/mL 10/10/2024 3:11 AM EDT [facility] Comment: PEth 16:0/18:2 (PLPEth) Reference ranges are not well established PEth Interpretation Negative. 10/10 3:11 AM EDT [facility] Comment: ADDITIONAL INFORMATION This report is intended for use in clinical monitoring and management of patients. It is not intended for use in employment-related testing. This test was developed and its performance characteristics determined by [facility] in a manner consistent with CLIA requirements. This test has not been cleared or approved by the U.S. Food and Drug Administration. Test Performed by: [facility] - [address] [address] [employer] Area Supervisor: Kathy Ortiz Ph.D.; CLIA# [id number] Whole Blood 10/06/2024 1:04 AM EDT 10/10/2024 3:11 AM EDT us BisiCrambu LAB BLOOD ORDERABLES Final Resul t Performing Organization Address [facility]/State/ZIP Co de Phone Number [facility] [address] [facility]. [address] * (ABNORMAL) Acetaminophen Level (10/06/2024 1:04 AM EDT) Acetaminophen Level <10(L) 10 - 30 ug/mL 10/06/2024 2:08 AM EDT [facility] Serum 10/06/2024 1:04 AM EDT 10/06/2024 1:30 AM EDT [employer] LAB BLOOD ORDERABLES Final Resul t Performing Organization Address [facility] Co de Phone Number [facility] [address] [place] [address]. [address] * Ethanol, Serum (10/06/2024 1:04 AM EDT) Ethanol <10 0 - 10 mg/dL 10/06/2024 2:08 AM EDT [facility] Serum 10/06/2024 1:04 AM EDT 10/06/2024 1:30 AM EDT Bisi T1 [employer] maría [employer] LAB BLOOD ORDERABLES Final Resul t Performing Organization Address [facility] Co de Phone Number [facility] [address] [place] [address]. [address] * #2 Blood culture-Peripheral site 2 (10/06/2024 1:04 AM EDT) Culture Result No Growth After 5 Days [facility] Blood BLOOD SPECIMEN / Unknown 10/06/2024 1:04 AM EDT 10/06/2024 4:57 AM EDT Narrative [facility] - 10/11/2024 5:05 AM EDT Suboptimal volume of blood received. Interpret results with caution. i2weana maría [employer] MICROBIOLOGY - GENERAL ORDERABLE S Final Result Performing Organization Address City/[facility]/ZIP Co de Phone Number [facility] [address] * #1 Blood culture-Peripheral site 1 (10/06/2024 1:04 AM EDT) Culture Result No Growth After 5 Days [facility] Blood BLOOD SPECIMEN / Unknown 10/06/2024 1:04 AM EDT 10/06/2024 4:57 AM EDT Narrative [facility]ALTH LAB - 10/11/2024 5:01 AM EDT Suboptimal volume of blood received. Interpret results with caution. Check I'm Here DO MICROBIOLOGY - GENERAL ORDERABLE S Final Result Performing Organization Address [facility] Co de Phone Number [facility] [address] * Ammonia (10/06/2024 1:04 AM EDT) Ammonia 77 27 - 90 ug/dL 10/06/2024 2:00 AM EDT [facility] Plasma 10/06/2024 1:0 4 AM EDT 10/06/2024 1:30 AM EDT iLost LAB BLOOD ORDERABLES Final Resul t Performing Organization Address [facility] Co de Phone Number [facility] [address] * Thyroid Function [place] (10/06/2024 1:04 AM EDT) TSH 0.84 0.45 - 4.12 uIU/mL 10/06/2024 2:20 AM EDT [facility] Serum 10/06/2024 1:04 AM EDT 10/06/2024 1:39 AM EDT iLost LAB BLOOD ORDERABLES Final Resul t Performing Organization Address City/[facility]/ZIP Co de Phone Number [facility] [address] * (ABNORMAL) Protime-INR (10/06/2024 1:04 AM EDT) Protime 22.8(H) 12.1 - 15.1 seconds 10/06/2024 1:48 AM EDT [facility] INR 1.9(H) 0.9 - 1.1 10/06/2024 1:48 AM EDT [facility] Comment: RECOMMENDED THERAPEUTIC RANGES USING INR : Stable oral anticoagulant therapy: 2.0 - 3.0 Mechanical prosthetic heart valve: 2.5 - 3.5 Recurrent acute myocardial infarction: 2.5 - 3.5 Plasma 10/06/2024 1:04 AM EDT 10/06/2024 1:30 AM EDT [facility] BLOOD ORDERABLES Final Resul t Performing Organization Address City/[facility]/ZIP Co de Phone Number [facility] [address] [facility]. [address] * Lactic Acid, STAT (10/06/2024 1:04 AM EDT) Lactate 1.2 0.5 - 2.2 mmol/L 10/06/2024 1:59 AM EDT [facility] Plasma 10/06/2024 1:04 AM EDT 10/06/2024 1:30 AM EDT us [employer] DO LAB BLOOD ORDERABLES Final Resul t [facility] [address] * (ABNORMAL) CBC, STAT (10/06/2024 1:04 AM EDT) WBC 7.9 3.8 - 10.8 10E3/uL 10/06/2024 2:36 AM EDT [facility] RBC 2.76(L) 4.20 - 5.80 10E6/uL 10/06/2024 2:36 AM EDT [facility] Hemoglobin 9.9(L) 13.2 - 17.1 g/dL 10/06/2024 2:36 AM EDT [facility] Hematocrit 28.0(L) 38.5 - 50.0 % 10/06/2024 2:36 AM EDT [facility] MCV 101.5(H) 80.0 - 100.0 fL 10/06/2024 2:36 AM EDT [facility] MCH 35.7(H) 27.0 - 33.0 pg 10/06/2024 2:36 AM EDT [facility] MCHC 35.2 32.0 - 36.0 g/dL 10/06/2024 2:36 AM EDT [facility] RDW 17.9(H) 11.0 - 15.0 % 10/06/2024 2:36 AM EDT [facility] Platelets 58(L) 140 - 400 10E3/uL 10/06/2024 2:36 AM EDT [facility] Comment: Specimen checked for clots. None detected. Slide Reviewed for PLT Clumps. None Seen. MPV 8.2 7.5 - 11.5 fL 10/06/2024 2:36 AM EDT [facility] Whole Blood 10/06/2024 1:04 AM EDT 10/06/2024 1:31 AM EDT us Bisi Hernandez DO LAB BLOOD ORDERABLES Final Resul t [facility] [address] [id number], [facility] * (ABNORMAL) Comprehensive Metabolic Panel (10/06/2024 1:04 AM EDT) Sodium 127(L) 133 - 146 mmol/L 10/06/2024 2:05 AM EDT [facility] Potassium 4.5 3.5 - 5.3 mmol/L 10/06/2024 2:05 AM EDT [facility] Chloride 99 98 - 110 mmol/L 10/06/2024 2:05 AM EDT [facility] CO2 18(L) 21 - 33 mmol/L 10/06/2024 2:05 AM EDT [facility] Anion Gap 10 3 - 16 mmol/L 10/06/2024 2:05 AM EDT [facility] BUN 59(H) 7 - 25 mg/dL 10/06/2024 2:05 AM [facility] Creatinine 3.54(H) 0.60 - 1.30 mg/dL 10/06/2024 2:05 AM [facility] Glucose 116(H) 70 - 100 mg/dL 10/06/2024 2:05 AM [facility] Calcium 9.0 8.6 - 10.3 mg/dL 10/06/2024 2:05 AM [facility] Total Bilirubin 14.8(H) 0.0 - 1.5 mg/dL 10/06/2024 2:05 AM [facility] AST 61(H) 13 - 39 U/L 10/06/2024 2:05 AM [facility] ALT 33 7 - 52 U/L 10/06/2024 2:05 AM [facility] Alkaline Phosphatase 174(H) 36 - 125 U/L 10/06/2024 2:05 AM [facility] Total Protein 5.2(L) 6.4 - 8.9 g/dL 10/06/2024 2:05 AM [facility] Albumin 3.3(L) 3.5 - 5.7 g/dL 10/06/2024 2:05 AM [facility] Osmolality, Calculated 282 278 - 305 mOsm/kg 10/06/2024 2:05 AM [facility] EGFR 21 10/06/2024 2:05 AM [facility] Comment:As of 2021, [...] EDT 10/06/2024 1:40 AM EDT us Bisi Hernandezana maría [facility] BLOOD ORDERABLES Final Resul t [facility] [address] [place] [address], [facility] documented in this encounter Visit Diagnoses [...] RN)2103 (Given - Provider: Chelsy Bush, ЮЛИЯ) 0636 [...] 0851 (Not Given - Provider: Suzette Arciniega, ЮЛИЯ - Reason: Patient/family refused) levothyroxine (SYNTHROID) tablet 75 mcg 75 mcg, Oral, Every morning before breakfast, First dose on Sun10/06/24 at 0730, Please hold tube feeds 30 minutes before and 90 minutes after levothyroxine administration. 0820 (Given - Provider: Anu Wolff RN) 0636 (Given - Provider: Chelsy Bush, ЮЛИЯ) 06 (Given - Provider: Soco Milton, ЮЛИЯ) magnesium [...] Anu Wolff RN)1335 (Given - Provider: Anu Woflf RN)210 (Given - Provider: Chelsy Bush, ЮЛИЯ) 0833 (Given - Provider: Anu Wolff RN)1317 (Given - Provider: Anu Wolff RN)2022 (Given - Provider: Soco iMlton RN) 0850 (Given - Provider: Suzette Arciniega, ЮЛИЯ) midodrine (PROAMATINE) tablet 10 mg 10 mg, Oral, 3 times daily, First dose on Sun10/09/24 at 1300 0820 (Given - Provider: Anu Wolff RN)1335 (Given - Provider: Anu Wolff RN)210 (Given - Provider: Chelsy Bush RN) 0833 (Given - Provider: Anu Wolff RN)1317 (Given - Provider: Anu Wolff RN)202 (Given - Provider: Soco Milton, ЮЛИЯ) 0849 [...] 0849 (Given - Provider: Suzette Arciniega RN) thiamine HCl (VITAMIN B-1) tablet 100 [...] Anu Wolff RN)211 (Given - Provider: Chelsy Bush RN) 0833 [...] ЮЛИЯ) 0156 (See Alternative - Provider: Chelsy Bush [...] Bush, RN) 0156 (Given - Provider: Chelsy Bush RN)0635 (Given - Provider: Chelsy Bush RN)1322 (Given - Provider: Anu Wolff RN)2031 [...] documented as of this encounter Care Teams Engineer Second Assistant Relationship Specialty Start Date End Date Enedina Mcguire NP [address] [place] [address] PCP - General Internal Medicine 10/05/24 documented as of this encounter
--- OUTSIDE RECORDS SUMMARY | 2024-10-10 12:01 | XMS_ITS | Encounter Summary ---
Author Organization [facility] Address [address] [place] [address] Care Team Providers Care Digestion Operator Name Role Phone Enedina Mcguire NP Primary Care Provider [phone] Source Comments This information has been disclosed [...] release of HIV test results or diagnoses. [id number] Reason for Visit * Auth/Cert (Routine) Specialty Diagnoses / Procedures Referred By Shane hernadez Referred To Contact General Internal Medicine Diagnoses [facility] [address] [place] [address] Phone: tel: Referral ID Status Reason Start Date Expiration Date Visits Re quested Visits Authorized [id number] 1 1 Encounter Details Date Type Department Care Team (Late st Contact Info) Description 10/10/2024 12:01 PM EDT Anesthesia Event [facility] ENDOSCOPY [address] [place] [address] Cady Bhat MD [address] [place] [address] Bob Leggett MD [address] [place] [facility] [address] [place] [address] Anesthesia Record Procedure Summary Procedure [...] Recorded In the past 12 months has [employer], [employer] [place], or [employer] threatened to shut off services in your [...] any time in the past 12 m [facility], were you homeless or living in a [...] Bhat MD - 10/10/2024 10:15 AM EDT [facility] DEPARTMENT OF ANESTHESIOLOGY PRE-PROCEDURAL EVALUATION Julien [...] No Physical Activity: Unknown (07/14/2024) Received from [facility] Exercise Vital Sign Days of Exercise per Week: Patient unable to answer Minutes of Exercise per Session: Not on file Stress: Patient Unable To Answer (07/14/2024) Received from [facility] Tongan [place] of Occupational Health - Occupational Stress Questionnaire Feeling of Stress : Patient unable to answer Social Connections: Patient Unable To Answer (07/14/2024) Received from [facility] Social Connection and Isolation Panel [NHANES] Frequency of Communication with Friends and Family: Patient unable to answer Frequency of Social Gatherings with Friends and Family: Patient unable to answer Attends Congregational Services: Patient unable to answer Active Member [...] in detail. Questions answered. Plan discussed with TALENT DEVELOPMENT CONSULTANT. [1] Allergies Allergen Reactions Adhesive Itching and Rash Tegaderm adhesive on Ivs, pt states its tolerable Duloxetine Other (See Comments) Became Manic documented in this encounter Plan of Treatment Upcoming Encounters Date Type Department Care Team (Late st Contact Info) Description 12/05/2024 8:01 AM EDT Hospital Encounter [facility] ENDOSCOPY [address] [place] [address] Chris Orosco MD [address] [place] [phone] 12/05/2024 8:01 AM EDT - 12/05/2024 8:31 AM EDT Surgery [facility] ENDOSCOPY [address] [place] [address] Chris Orosco MD [address] [place] [address] EGD Scheduled Procedures Name Priority Associated Diagnoses [...] 10/09/24699 - 10/10/2465810/10/24699 - 10/11/24 0659 Shift 3411-1270 8031-2148 9060-7153 24 Hour Total 0016-8548 2378-6576 9731-8158 24 Hour Total INTAKE P.O. 210 210 [...] documented as of this encounter Care Teams Digestion Operator Relationship Specialty Start Date End Date Enedina Mcguire NP [address] [place] [address] PCP - General Internal Medicine 10/05/24 documented as of this encounter
--- OUTSIDE RECORDS SUMMARY | 2024-10-14 08:42 | XMS_ITS | Encounter Summary ---
Author Organization [facility] Address [facility] [place] [address] Care Team Providers Care Reed Cleaner Name Role Phone Enedina Mcguire NP Primary Care Provider [phone] Source Comments This information has been disclosed [...] release of HIV test results or diagnoses. 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 No 10/06/2024 Yearly Questionnaire Answer [...] Kandy Fuentes - 10/17/2024 10:29 AM EDT [facility] Care Management Discharge Summary Patient name: [...] post discharge: Not Applicable Kandy BAE RN [phone] * William Blount MD - 10/17/2024 8:50 AM EDT [facility] Inpatient Discharge Summary Patient: Julien Gilbert Age: 39 y.o. [facility]: [id number] Date of Admission: 10/05/2024 Date of Discharge: 10/17/2024 Attending Physician: Chelsy Lerner MD Primary Care Physician: Enedina Mcguire NP Diagnoses Present on Admission Past Medical History: Diagnosis Date Alcoholic cirrhosis of liver (CMS-HCC) Esophageal varices (CMS-HCC) Hepatorenal syndrome (CMS-HCC) Hypertension Other hyperlipidemia 07/26/2024 Renal cell carcinoma (CMS-HCC) Thrombocytopenia ([facility]) Thyroid disease Discharge Diagnoses Active Hospital [...] Case IDs Date Procedure Surgeon Location Status [id number] 10/10/24 EGD Lino Soto MD ENDOSCOPY Comp [id number] 10/14/24 Left Heart Cath Irving Matta MD [...] at 10/08/2024 1:12 PM EDT US Duplex Hmn-Ggv-Lonosrb Comp Final Result IMPRESSION: ABDOMEN 1. Cirrhotic [...] 90 tablet Refills: 0 naloxone 4 mg/actuation Vicco Commonly known as: NARCAN Apply 1 spray [...] Your Medications These medications were sent to [facility] [address] [place] [address] [facility] [address] Hours: Sunday - Sunday: 8:00AM - 6:00PM FLUoxetine 20 MG capsule lactulose 10 gram/15 mL solution loratadine 10 mg tablet methocarbamoL 500 MG tablet midodrine 10 MG tablet naloxone 4 mg/actuation Vicco oxyCODONE 5 MG immediate release tablet Discharge [...] Noted Acute kidney injury superimposed on CKD ([facility]) [N17.9, N18.9] 07/25/2024 Neck pain with history of cervical spinal surgery [M54.2, Z98.890] 10/07/2024 SBP (spontaneous bacterial peritonitis) ([facility]) [K65.2] 09/08/2024 Anemia [D64.9] 09/05/2024 Metabolic acidosis with normal anion gap and bicarbonate losses [E87.20] 09/03/2024 GERD (gastroesophageal reflux disease) [K21.9] 09/03/2024 Renal mass, left [N28.89] 08/18/2024 Metabolic encephalopathy [G93.41] 07/26/2024 Thrombocytopenia ([facility]) [D69.6] Decompensated cirrhosis ([facility]) [K72.90, K74.60] 07/25/2024 Resolved Hospital Problems Diagnosis [...] Select Supplement: Boost-1 kcal/ml supplement ([facility] only) As listed above, low [...] AM EDT 10/17/2024 naloxone (NARCAN) 4 mg/actuation Vicco Apply 1 spray in one nostril if [...] HEPATOLOGY PROGRESS NOTE Name: Julien Gilbert CSN: [id number] Consulted by: Chelsy Lerner MD Reason for [...] Yes Past Week naloxone (NARCAN) 4 mg/actuation Vicco Apply 1 spray in one nostril if [...] nucleated cells, <2000 RBCs 10% Polynuclear, 90% Calhoun nuc. There were initial reports of gram [...] of chemical dependency treatment as outpatient. - [facility] with no obstructive coronary disease - Psych eval for PTSD With recommendation of sertraline - Given his renal dysfunction, will plan to list for [facility] when he qualifies on 10/22/2024. Labs next week - Plan for d/c today Bobby Sidhu MD Transplant Mine Wirer Please see the body of the resident, [...] remains <30 until October 22. Waiting for [facility] today. ASSESSMENT NADIYA on CKD, [...] Staff. Jeremiah Gamino PGY4 Nephrology. Pager no. [phone] Chief Complaint No chief complaint on file. [...] visitis Acute kidney injury superimposed on CKD ([facility]). No acute events overnight. No chest [...] at 10/08/2024 1:12 PM EDT US Duplex Dtt-Ouu-Chgslhp Comp Final Result IMPRESSION: ABDOMEN 1. Cirrhotic [...] no head imaging has been performed at [facility]. -CT Head w/o contrast -Imaging [...] Select Supplement: Boost-1 kcal/ml supplement ([facility] only) Code Status: Full Code [...] another specialty or practice, other licensed professional (PT/OT/SMALL WIND ENERGY INSTALLER/RT), or a non-medical community professional: Hepatology, [...] due to positioning during LHC on 10/14. [place] the worst in CVR, but has improved [...] Kumar RD - 10/16/2024 1:08 PM EDT [facility] Medical Nutrition Therapy Follow-Up Diet Order/Nutrition Support: Regular diet, Boost TID - Vanilla preference Pertinent Information: This is a 39 year old male history of ETOH cirrhosis d/b HE, ascites with SBP who is admitted for AMS. Precipitant of his HE likely SBP. Diagnostic paracentesis at OSH reportedly showed 61 nucleated cells, <2000 RBCs 10% Polynuclear, 90% Calhoun nuc. There were initial reports of gram [...] Based on CBW of 119.5 kg Kcals/day: 5680-0865 (18-21 kcals/kg) Protein g/day: 119-143 (1-1.2 g/kg) [...] Kumar RD, LD Clinical Dietitian Contact via [employer] * Jerad Hughes MD - 10/16/2024 11:03 AM EDT [facility] HEPATOLOGY PROGRESS NOTE Name: Julien Gilbert CSN: [id number] Consulted by: Chelsy Lerner MD Reason for [...] nucleated cells, <2000 RBCs 10% Polynuclear, 90% Calhoun nuc. There were initial reports of gram [...] of chemical dependency treatment as outpatient. - [facility] with no obstructive coronary disease - Psych eval for PTSD With recommendation of sertraline - Given his renal dysfunction, will plan to list for [facility] when he qualifies on 10/22/2024. - Will follow Bobby Sidhu MD Transplant Mine Wirer Please see the body of the resident, [...] remains <30 until October 22. Waiting for [facility] today. ASSESSMENT NADIYA on CKD, [...] COMMENT on 10/08/2024 Iron%- Iron replete PLAN -[facility] yesterday- patient remains at risk of contrast related injury on top of exisiting NADIYA for 24-48 hrs after contrast load. -He is volume overloaded -patient needs to follow up closely with nephrology after discharge Thank you for allowing us to participate in this patient's care. Discussed with Consult Staff. Jeremiah Gamino PGY4 Nephrology. Pager no. [phone] Chief Complaint No chief complaint on file. [...] at 10/08/2024 1:12 PM EDT US Duplex Wys-Ljd-Yejqkyd Comp Final Result IMPRESSION: ABDOMEN 1. Cirrhotic [...] not tolerate Stress ECHO on 10/09 - [facility] today -Per GI recs, started [...] no head imaging has been performed at [facility]. -CT Head w/o contrast -Imaging [...] Select Supplement: Boost-1 kcal/ml supplement ([facility] only) Code Status: Full Code Signed: WILLIAM BLOUNT MD 10/15/2024, 10:49 AM Cosigned by Chelsy Lerner MD at 10/15/2024 2:47 PM EDT Associated attestation - Chelsy Lerner MD - 10/15/2024 2:47 PM EDT [facility] Medicine Attending Supervision Note Julien [...] another specialty or practice, other licensed professional (PT/OT/SMALL WIND ENERGY INSTALLER/RT), or a non-medical community professional: Hepatology, [...] due to positioning during LHC on 10/14. [place] the worst in CVR, but has improved [...] HEPATOLOGY PROGRESS NOTE Name: Julien Gilbert CSN: [id number] Consulted by: Chelsy Lerner MD Reason for [...] nucleated cells, <2000 RBCs 10% Polynuclear, 90% Calhoun nuc. There were initial reports of gram [...] of chemical dependency treatment as outpatient. - C yesterday with no obstructive coronary disease - Psych eval for PTSD and medical management - Given his renal dysfunction, will plan to list for [facility] when he qualifies on 10/22/2024. - Will follow Bobby Sidhu MD Transplant Mine Wirer Please see the body of the resident, [...] Quan MD - 10/14/2024 2:34 PM EDT [facility] Department of Cardiovascular Health [...] remains <30 until October 22. Waiting for [facility] today. ASSESSMENT NADIYA on CKD, [...] Staff. Jeremiah Gamino PGY4 Nephrology. Pager no. [phone] Chief Complaint No chief complaint on file. [...] at 10/08/2024 1:12 PM EDT US Duplex Yzr-Pzm-Hcthrfu Comp Final Result IMPRESSION: ABDOMEN 1. Cirrhotic [...] not tolerate Stress ECHO on 10/09 - [facility] today -Per GI recs, started [...] no head imaging has been performed at [facility]. -CT Head w/o contrast -Imaging [...] never required dialysis. Patient is going for [facility] today and will receive contrast, [...] Select Supplement: Boost-1 kcal/ml supplement ([facility] only) Code Status: Full Code Signed: WILLIAM BLOUNT MD 10/14/2024, 10:26 AM Cosigned by Chelsy Lerner MD at 10/14/2024 11:53 AM EDT Associated attestation - Chelsy Lerner MD - 10/14/2024 11:53 AM EDT [facility] Medicine Attending Supervision Note Julien [...] to go home as soon as possible. [facility] postponed until today, still on as add [...] another specialty or practice, other licensed professional (PT/OT/SMALL WIND ENERGY INSTALLER/RT), or a non-medical community professional: Hepatology, [...] HEPATOLOGY PROGRESS NOTE Name: Julien Gilbert CSN: [id number] Consulted by: Chelsy Lerner MD Reason for [...] nucleated cells, <2000 RBCs 10% Polynuclear, 90% Calhoun nuc. There were initial reports of gram [...] eval ongoing. Transplant work up ongoing - [facility] today - Transplant nephrology following [...] - Will follow Bobby Sidhu MD Transplant Mine Wirer Please see the body of the resident, [...] Staff. Jeremiah Gamino PGY4 Nephrology. Pager no. [phone] Chief Complaint No chief complaint on file. [...] HEPATOLOGY PROGRESS NOTE Name: Julien Gilbert CSN: [id number] Consulted by: Fouzia Rene MD Reason for [...] nucleated cells, <2000 RBCs 10% Polynuclear, 90% Calhoun nuc. There were initial reports of gram [...] eval ongoing. Transplant work up ongoing - [facility] today - Transplant nephrology following [...] - Will follow Bobby Sidhu MD Transplant Mine Wirer Please see the body of the resident, [...] any interval liver pathology. * Rebekah Linares, [facility] - 10/13/2024 12:30 PM EDT [...] no psychomotor abnormalities Cognition: short term and long distance operator memory intact Attitude: cooperative Affect: full [...] Fabian RD - 10/13/2024 10:49 AM EDT [facility] Medical Nutrition Therapy Reason(s) [...] Select Supplement: Boost-1 kcal/ml supplement ([facility] only) Pertinent Information: Julien Gilbert is a 39 y.o. Male admitted for Acute kidney injury superimposedon CKD ([facility]) Pt noted to have waxing [...] kg) Body mass index is 32.07 kg/m??. [place] Body Weight: 202 lbs (91.8 kg) +/- 10% Weight History: Wt Readings from Last 10 Encounters: 10/10/24 (!) 263 lb 8 oz (119.5 kg) 09/05/24 (!) 262 lb 9.6 oz (119.1 kg) 09/02/24 (!) 258 lb (117 kg) 08/17/24 (!) 242 lb 11.2 oz (110.1 kg) 07/28/24 (!) 245 lb (111.1 kg) Estimated Nutrition Needs: Based on CBW of 119.5 kg Kcals/day: 1448-5278 (18-21 kcals/kg) Protein g/day: 119-143 (1-1-2 g/kg) [...] continue to monitor Citlaly Fabian MS DMITRYN DANITA Clinical Dietitian - Solid Organ Transplant Contact via [employer] Chat * Eileen Schroeder MD, PhD - [...] 8L of fluid were removed Going for [facility] today Review of Systems (Focused) [...] at 10/08/2024 1:12 PM EDT US Duplex Gsm-Xjy-Sefhlxp Comp Final Result IMPRESSION: ABDOMEN 1. Cirrhotic [...] axial skeleton (Results Pending) Assessment & Plan uJlien Gilbert is a 39 y.o. male on [...] no head imaging has been performed at [facility]. -CT Head w/o contrast -Imaging [...] Select Supplement: Boost-1 kcal/ml supplement ([facility] only) Code Status: Full Code [...] I reviewed the documentation by the medical fast food team member and agree as documented. Any additions or clarifications are listed below. Daily plan was discussed with patient at bedside and questions addressed. Patient ID: Julien Gilbert is a 39 y.o. male currently admitted for Acute kidney injury superimposed on CKD ([facility]) Supplemental History/ ROS: No acute events overnight [...] for Acute kidney injury superimposed on CKD ([facility]) Active Problems: NADIYA (acute kidney injury) on CKD ([facility]): Hepatorenal syndrome. Appreciate nephrology consult. S/p albumin X3. Baseline creatinine presumed to be around 2.5. Creatinine now seems to be fluctuating between 2.5-2.9 which may be his new baseline. We will continue to monitor. Spontaneous Bacterial Peritonitis ([facility]): Received 4 days of vancomycin, Ceftriaxone x [...] was non-diagnostic due to hypotension. Plan for [facility] today, but now moved to [...] when medically ready. Consider d/c home after [facility] tomorrow. FOUZIA RENE MD Attending Physician Department of Internal Medicine 10/13/2024 Medical Decision Making: // LEVEL 2 MOD One chronic illness with exacerbation, progression, or side effects of treatment Discussed with physician/SAWYER from another specialty or practice, other licensed professional (PT/OT/SMALL WIND ENERGY INSTALLER/RT), or a non-medical community professional: Nephrology, [...] at 10/08/2024 1:12 PM EDT US Duplex Nfg-Vju-Jbzqtyf Comp Final Result IMPRESSION: ABDOMEN 1. Cirrhotic [...] axial skeleton (Results Pending) Assessment & Plan uJlien Gilbert is a 39 y.o. male on [...] no head imaging has been performed at [facility]. -CT Head w/o contrast -Imaging [...] Select Supplement: Boost-1 kcal/ml supplement ([facility] only) Code Status: Full Code Signed: CHARI VANEGAS MD 10/12/2024, 12:49 PM Cosigned by Fouzai Rene MD at 10/12/2024 4:52 PM EDT [...] I reviewed the documentation by the medical fast food team member and agree as documented. Any additions or clarifications are listed below. Daily plan was discussed with patient at bedside and questions addressed. Patient ID: Julien Gilbert is a 39 y.o. male currently admitted for Acute kidney injury superimposed on CKD ([facility]) Supplemental History/ ROS: No acute [...] for Acute kidney injury superimposed on CKD ([facility]) Active Problems: NADIYA (acute kidney injury) on CKD ([facility]): Hepatorenal syndrome. Appreciate nephrology consult. S/p albumin X3. baseline creatinine presumed to be around 2.5. Creatinine improved from its peak and may be now fluctuating around a new baseline. We will continue to monitor. Spontaneous Bacterial Peritonitis ([facility]): He remains afebrile and vital signs have been stable. Received 4 days of vancomycin, Ceftriaxone x 5d. - Restart Cipro prophylaxis Anemia: Multiple contributors. S/p 1 unit PRBC. Hemoglobin responded appropriately and remained stable. Will continue to monitor. Metabolic encephalopathy: Resolved. Likely related to combination of hepatic, metabolic, and possibly infectious insults. - Continue home lactulose and rifaximin Decompensated cirrhosis ([facility]): Appreciate hepatology consult. He has started his transplant evaluation and will continue while inpatient. - Continue lactulose, rifaximin, ursodiol, and midodrine - MELD labs daily - Continue home regimen with ursodiol, rifaximin and lactulose - Continue midodrine TID. - Requires therapeutic paracentesis frequently. Last on 10/10 (8L) - Stress test was non-diagnostic due to hypotension. Plan for [facility] tomorrow. - EGD completed. - [...] another specialty or practice, other licensed professional (PT/OT/SMALL WIND ENERGY INSTALLER/RT), or a non-medical community professional: Nephrology, [...] tid. cardiac workup pre txp. pLan for [facility] Sunday Liver transplant workup per [...] concern for hepatorenal syndrome.` Patient came from [facility], paracentesis was performed yesterday on [...] 706.9 (H) 10/08/2024 No results found for: [id number] , FOLATE Lab Results Component Value Date [...] CRUR No results found for: MICROALBUR , [id number] In addition to the above an extensive [...] 4.6 10/12/2024 Lab Results Component Value Date TPTC45F 7.1 (L) 10/08/2024 PLAN Monitor renal panel [...] AM Colten Huertas MD, KISHOR LIN, CATHYF yarder Div. of Nephrology [facility] E-mail: [email or web address] This note was completely [...] Consult History & Physical Note Patient: Julien Giblert Date of Admit: 10/05/2024 Referring physician: Fouzia Rene MD Interval hx No issues. Pending [facility]. Assessment: Renal Function: Cr: 2.77 [...] concern for hepatorenal syndrome.` Patient came from [facility], paracentesis was performed yesterday on [...] 0459 10/09/24 0814 10/09/24 1305 10/10/24 0510/11/24 030 NA 134 < > 134 135 134 [...] displayed. Recent Labs 10/09/24 1305 10/10/24 0510/11/24 030 CALCIUM 9.3 9.0 8.9 PHOS 3.4 3.3 3.5 Lab Results Component Value Date IRON 81 10/08/2024 TIBC SEE COMMENT 10/08/2024 FERRITIN 706.9 (H) 10/08/2024 No results found for: [id number] , FOLATE Lab Results Component Value Date [...] CRUR No results found for: MICROALBUR , [id number] In addition to the above an extensive [...] Hypertension, Other hyperlipidemia (07/26/2024), Renal cell carcinoma ([facility]), Thrombocytopenia ([facility]), and Thyroid disease. who presents for [...] 3.5 10/11/2024 Lab Results Component Value Date HRWI29C 7.1 (L) 10/08/2024 PLAN Monitor renal panel [...] AM Colten Huertas MD, KISHOR LIN, PETE yarder Div. of Nephrology [facility] E-mail: [email or web address] This note was completely [...] at 10/08/2024 1:12 PM EDT US Duplex Ibo-Hvv-Ffxfsly Comp Final Result IMPRESSION: ABDOMEN 1. Cirrhotic [...] from outside facility. Will engage with them daily([phone]. Ask to speak to a tech) about [...] no head imaging has been performed at [facility]. -CT Head w/o contrast -Imaging [...] Select Supplement: Boost-1 kcal/ml supplement ([facility] only) Code Status: Full Code [...] I reviewed the documentation by the medical fast food team member and agree as documented. Any [...] for Acute kidney injury superimposed on CKD ([facility]) Active Problems: Spontaneous Bacterial Peritonitis ([facility]): He remains afebrile and vital [...] Continue home lactulose and rifaximin Decompensated cirrhosis ([facility]): Appreciate hepatology consult. He has [...] post paracentesis yesterday which removed 8L ascites NAIDYA (acute kidney injury) on CKD ([facility]): Hepatorenal syndrome. Appreciate nephrology consult. 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 Not a candidate for terlipressin [...] Ignacio Queen MD Renal Fellow Pager # [phone] Chief Complaint No chief complaint on file. [...] concern for hepatorenal syndrome.` Patient came from [facility], paracentesis was performed yesterday on [...] PHOS -- < > 3.5 3.4 3.3 AKLO70J 7.1* -- -- -- -- < > = values in this interval not displayed. Lab Results Component Value Date IRON 81 10/08/2024 TIBC SEE COMMENT 10/08/2024 FERRITIN 706.9 (H) 10/08/2024 No results found for: [id number] , FOLATE Lab Results Component Value Date [...] CRUR No results found for: MICROALBUR , [id number] In addition to the above an extensive [...] 3.3 10/10/2024 Lab Results Component Value Date WDUS80K 7.1 (L) 10/08/2024 PLAN Continue IV albumin [...] AM Colten Huertas MD, DELIA, KISHOR, FNKF yarder Div. of Nephrology [facility] E-mail: [email or web address] This note was completely [...] pt while pt is at [facility]. * Jodi Ortiz PharmD - 10/10/2024 10:27 AM EDT Clinical Pharmacy Service: Vancomycin Consult Progress Note Patient has been transitioned off of vancomycin therapy per team notes and orders. Pharmacy will sign-off at this time, please do not hesitate to consult again as needs arise. Thank you for involving pharmacy in the care of this patient. Jodi Ortiz PharmD Clinical Account [employer], Internal Medicine Preferred contact: [employer] Chat Clinical Fjpwevu-Fv-Oqqa Pager: [phone] October 10, 2024 10:27 AM Laboratory Data [...] 10/07/2024 10:50 PM Giardia Cryptosporidium Antigens Final [id number] 10/07/2024 10:50 PM Ova and Parasite Comprehensive w/ Giardia/Crypto Final [id number] Feces 10/06/2024 1:04 AM #2 Blood culture-Peripheral site 2 Preliminary [id number] Peripheral 10/06/2024 1:04 AM #1 Blood culture-Peripheral site 1 Preliminary [id number] Peripheral Pharmacokinetics Lab Results (Last 7 days) Today 0523 Yesterday 0459 10/[address] [facility] Rdm 16.4 11.0 16.0 * Gerri Peterson MD - 10/10/2024 10:09 AM EDT [facility] HEPATOLOGY PROGRESS NOTE Name: Julien Gilbert CSN: [id number] Consulted by: Fouzia Rene MD Reason for [...] nucleated cells, <2000 RBCs 10% Polynuclear, 90% Calhoun nuc. Per OSH reports, ascitic fluid cultures [...] to achieving target HR. -cardiology consult for [facility] on Sunday - Transplant nephrology [...] from the original note were not included. [facility] Clinical Pharmacy Service: Vancomycin Monitoring Consult [...] in sodium chloride 0.9 % 250 mL Vqru8Biq (Completed) 1,500 mg Once 10/09/2024 10/09/2024 Admin Instructions: Contact pharmacy if there is a question/concern of whether vancomycin should begiven based on serum drug levels. Use Vuqg7Gse Adapter - Mix Thoroughly Before Administration Route: Intravenous vancomycin (VANCOCIN) 1,500 mg in sodium chloride 0.9 % 250 mL Dxcg7Iux 1,500 mg Once 10/10/2024 10/11/2024 Admin Instructions: Contact pharmacy if there is a question/concern of whether vancomycin should begiven based on serum drug levels. Use Kkex3Ykr Adapter - Mix Thoroughly Before Administration Route: [...] in sodium chloride 0.9 % 250 mL Jugj9Fsy 1,500 mg 166.7 mL/hr 10/08/24 1259 New Bag vancomycin (VANCOCIN) 1,000 mg in sodium chloride 0.9 % 250 mL Dedi0Lce 1,000 mg 250 mL/hr --Objective Data-- Vitals: [...] 53 53 54 Creatinine 2.85 2.89 3.04 [place] body weight: 86.8 kg (191 lb 5.7 oz) Adjusted ideal body weight: 99.9 kg (220 lb 3.5 oz) Estimated CrCl: ~35-45 mL/min --Cultures-- Microbiology Results Date and Time Order Name Sensitivity Status Organisms Specimen ID Source 10/07/2024 10:50 PM Giardia Cryptosporidium Antigens Final [id number] 10/07/2024 10:50 PM Ova and Parasite Comprehensive w/ Giardia/Crypto Final [id number] Feces 10/06/2024 1:04 AM #2 Blood culture-Peripheral site 2 Preliminary [id number] Peripheral 10/06/2024 1:04 AM #1 Blood culture-Peripheral site 1 Preliminary [id number] Peripheral --Vancomycin Concentrations-- Lab Results (Last 7 [...] for the consult. Jodi Ortiz PharmD Clinical Account [employer], Internal Medicine Preferred contact: [employer] Mykwhhw-Sy-Vqun Pager: [phone] October 10, 2024 9:13 AM * Eileen Schroeder MD, PhD - 10/10/2024 8:17 AM EDT Department of Internal Medicine Daily Progress Note Chief Complaint / Reason for Follow-Up Julien Gilbert is a 39 y.o. male on hospital day 5. The principal reason for today's follow up visit is Acute kidney injury superimposed on CKD ([facility]). DREW Pt was very conversational [...] at 10/08/2024 1:12 PM EDT US Duplex Ocu-Dud-Nxfzwbe Comp Final Result IMPRESSION: ABDOMEN 1. Cirrhotic [...] from outside facility. Will engage with them daily([phone]. Ask to speak to a tech) about [...] no head imaging has been performed at [facility]. -CT Head w/o contrast -Imaging [...] Select Supplement: Boost-1 kcal/ml supplement ([facility] only) Code Status: Full Code [...] I reviewed the documentation by the medical fast food team member and agree as documented. Any additions or clarifications are listed below. Daily plan was discussed with patient at bedside and questions addressed. Patient ID: Julien Gilbert is a 39 y.o. male currently admitted for Acute kidney injury superimposed on CKD ([facility]) Supplemental History/ ROS: No acute [...] for Acute kidney injury superimposed on CKD ([facility]) Active Problems: Spontaneous Bacterial Peritonitis ([facility]): Cultures from OSH were reported as [...] Continue home lactulose and rifaximin Decompensated cirrhosis ([facility]): Appreciate hepatology consult. He has [...] reflux disease) Anemia SBP (spontaneous bacterial peritonitis) (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 Considering para today, cardiac workup pre txp Liver transplant workup per GI/ Primary team, considering for SLK, seen by renal transplant team Thank you for allowing us to participate in this patient's care. Discussed with Consult Staff. Ignacio Queen MD Renal Fellow Pager # [phone] Chief Complaint No chief complaint on file. [...] concern for hepatorenal syndrome.` Patient came from [facility], paracentesis was performed yesterday on [...] 9.0 9.3 PHOS -- 3.5 3.5 3.4 HNLM24S 7.1* -- -- -- Lab Results Component Value Date IRON 81 10/08/2024 TIBC SEE COMMENT 10/08/2024 FERRITIN 706.9 (H) 10/08/2024 No results found for: SASQBHQO55 , FOLATE Lab Results Component Value Date [...] CRUR No results found for: MICROALBUR , [id number] In addition to the above an extensive [...] 3.4 10/09/2024 Lab Results Component Value Date YVAU00A 7.1 (L) 10/08/2024 PLAN Continue IV albumin [...] PM Colten Huertas MD, KISHOR LIN FNKF yarder Div. of Nephrology [facility] E-mail: [email or web address] This note was completely [...] HEPATOLOGY PROGRESS NOTE Name: Julien Gilbert CSN: [id number] Consulted by: Fouzia Rene MD Reason for [...] nucleated cells, <2000 RBCs 10% Polynuclear, 90% Calhoun nuc. Fluid cultures reportedly grew gram + [...] from the original note were not included. [facility] Clinical Pharmacy Service: Vancomycin Monitoring Consult [...] in sodium chloride 0.9 % 250 mL Zlhk0Mak (Completed) 1,000 mg Once 10/08/2024 10/08/2024 Admin Instructions: Contact pharmacy if there is a question/concern of whether vancomycin should begiven based on serum drug levels. Use Juvw1Ang Adapter - Mix Thoroughly Before Administration Route: Intravenous vancomycin (VANCOCIN) 1,500 mg in sodium chloride 0.9 % 250 mL Ptdu7Drc 1,500 mg Once 10/09/2024 10/10/2024 Admin Instructions: Contact pharmacy if there is a question/concern of whether vancomycin should begiven based on serum drug levels. Use Kkjg3Ovq Adapter - Mix Thoroughly Before Administration Route: [...] in sodium chloride 0.9 % 250 mL Lkoe6Sao 1,000 mg 250 mL/hr 10/06/24 1413 New [...] 10/07/2024 10:50 PM Giardia Cryptosporidium Antigens Final [id number] 10/07/2024 10:50 PM Ova and Parasite Comprehensive w/ Giardia/Crypto Final [id number] Feces 10/06/2024 1:04 AM #2 Blood culture-Peripheral site 2 Preliminary [id number] Peripheral 10/06/2024 1:04 AM #1 Blood culture-Peripheral site 1 Preliminary [id number] Peripheral --Vancomycin Concentrations-- Lab Results (Last 7 [...] for the consult. Jodi Ortiz PharmD Clinical Account [employer], Internal Medicine Preferred contact: [employer] Lccatbm-Rh-Tkaz Pager: [phone] October 09, 2024 8:29 AM * Eileen Schroeder MD, PhD - 10/09/2024 8:00 AM EDT Department of Internal Medicine Daily Progress Note Chief Complaint / Reason for Follow-Up Julien Gilbert is a 39 y.o. male on hospital day 4. The principal reason for today's follow up visit is Acute kidney injury superimposed on CKD ([facility]). KARENEON and father at bedside [...] at 10/08/2024 1:12 PM EDT US Duplex Ftf-Dsi-Cknexrr Comp Final Result IMPRESSION: ABDOMEN 1. Cirrhotic [...] from outside facility. Will engage with them daily([phone]. Ask to speak to a tech) about [...] no head imaging has been performed at [facility]. -CT Head w/o contrast -Imaging [...] Select Supplement: Boost-1 kcal/ml supplement ([facility] only) Code Status: Full Code [...] I reviewed the documentation by the medical fast food team member and agree as documented. Any additions or clarifications are listed below. Daily plan was discussed with patient at bedside and questions addressed. Patient ID: Julien Gilbert is a 39 y.o. male currently admitted for Acute kidney injury superimposed on CKD ([facility]) Supplemental History/ ROS: No acute events overnight [...] for Acute kidney injury superimposed on CKD ([facility]) Active Problems: Anemia: S/p 1 unit PRBC [...] another specialty or practice, other licensed professional (PT/OT/SMALL WIND ENERGY INSTALLER/RT), or a non-medical community professional: Nephrology, Hepatology Labs reviewed (1 pt each): CBC, CMP, INR & other daily labs Review of notes from a different specialty or different practice: Nephrology, Anesthesiology hepatology, * Gerri Peterson MD - 10/08/2024 1:40 PM EDT [facility] HEPATOLOGY PROGRESS NOTE Name: Julien Gilbert CSN: [id number] Consulted by: Fouzia Rene MD Reason for [...] nucleated cells, <2000 RBCs 10% Polynuclear, 90% Calhoun nuc. Fluid cultures reportedly grew gram + [...] I have discussed this plan with the meeting coordinator and the liver transplant team. Cosigned [...] from the original note were not included. [facility] Clinical Pharmacy Service: Vancomycin Monitoring Consult Juline Gilbert is a 39 y.o. male [...] in sodium chloride 0.9 % 250 mL Xayt1Jfq 1,000 mg Once 10/08/2024 10/09/2024 Admin Instructions: Contact pharmacy if there is a question/concern of whether vancomycin should begiven based on serum drug levels. Use Onsj2Nhs Adapter - Mix Thoroughly Before Administration Route: [...] Pulse: 100 99 100 98 Resp: 16 16 Temp: 97.6 ??F (36.4 ??C) 97.4 [...] 10/07/2024 10:50 PM Giardia Cryptosporidium Antigens Final [id number] 10/07/2024 10:50 PM Ova and Parasite Comprehensive w/ Giardia/Crypto In process [id number] Feces 10/06/2024 1:04 AM #2 Blood culture-Peripheral site 2 Preliminary [id number] Peripheral 10/06/2024 1:04 AM #1 Blood culture-Peripheral site 1 Preliminary [id number] Peripheral --Vancomycin Concentrations-- Lab Results (Last 7 [...] for the consult. Jodi Ortiz PharmD Clinical Account [employer], Internal Medicine Preferred contact: [employer] Xcbyfsr-Lg-Ynch Pager: [phone] October 08, 2024 9:13 AM * Eileen [...] FREET4 0.74 09/03/2024 Diagnostic Studies US Duplex Ypj-Fyk-Xybeppb Comp Final Result IMPRESSION: ABDOMEN 1. Cirrhotic [...] no head imaging has been performed at [facility]. -CT Head w/o contrast -Imaging [...] Select Supplement: Boost-1 kcal/ml supplement ([facility] only) Code Status: Full Code [...] I reviewed the documentation by the medical fast food team member and agree as documented. Any [...] to 6.9 this morning. He is asymptomatic. Anemia is likely multifactorial including iatrogenic versus chronic disease versus cirrhosis versus bone marrow suppression versus other. Will check labs for hemolysis. Transfuse 1 unit PRBC today. Will continue to monitor. Metabolic encephalopathy: Mostly resolved. Likely related to combination of hepatic, metabolic, andpossibly infectious insults. - Continue home lactulose and rifaximin Spontaneous Bacterial Peritonitis ([facility]): Cultures from OSH are growing gram- positive organisms.We continue to await speciation. He remains afebrile and vital signs have been stable. - Continue vancomycin and ceftriaxone for now. - Will follow-up on speciation and sensitivities. Decompensated cirrhosis ([facility]): Appreciate hepatology consult. He has [...] tomorrow NADIYA (acute kidney injury) on CKD ([facility]): Appreciate nephrology consult. 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 Discussed with Consult Staff. Ignacio Queen MD Renal Fellow Pager # [phone] Chief Complaint No chief complaint on file. [...] concern for hepatorenal syndrome.` Patient came from [facility], paracentesis was performed yesterday on [...] TIBC , FERRITIN No results found for: [id number] , FOLATE Lab Results Component Value Date [...] <15 No results found for: MICROALBUR , [id number] In addition to the above an extensive [...] 4.0 10/08/2024 Lab Results Component Value Date FKYZ21B 7.1 (L) 10/08/2024 PLAN Continue IV albumin [...] 5:36 AM Colten Huertas MD, KISHOR LIN, TESSAKF yarder Div. of Nephrology [facility] E-mail: [email or web address] This note was completely [...] from the original note were not included. [facility] Clinical Pharmacy Service: Vancomycin Monitoring Consult [...] AM #2 Blood culture-Peripheral site 2 Preliminary [id number] Peripheral 10/06/2024 1:04 AM #1 Blood culture-Peripheral site 1 Preliminary [id number] Peripheral --Vancomycin Concentrations-- Lab Results (Last 7 [...] for the consult. Jodi Ortiz PharmD Clinical Account [employer], Internal Medicine Preferred contact: [employer] [facility] Ecnmlhr-Vv-Bdke Pager: [phone] October 07, 2024 5:01 PM * Yamile Paige PT - 10/07/2024 11:45 AM EDT Physical Therapy Initial Assessment and Discharge Name: Julien Gilbert : 1985 Attending Physician: Fouzia Rene MD Admission Diagnosis: AMS Date: 10/07/2024 Room: [facility] Reviewed Pertinent hospital course: [...] HEPATOLOGY PROGRESS NOTE Name: Julien Gilbert CSN: [id number] Consulted by: Fouzia Rene MD Reason for [...] nucleated cells, <2000 RBCs 10% Polynuclear, 90% Calhoun nuc. Fluid cultures reportedly grewgram + rods. [...] in liver selection meeting and clearance by drug abuse social worker. 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 Discussed with Consult Staff. Ignacio Queen MD Renal Fellow Pager # [phone] Chief Complaint No chief complaint on file. [...] concern for hepatorenal syndrome.` Patient came from [facility], paracentesis was performed yesterday on [...] TIBC , FERRITIN No results found for: [id number] , FOLATE Lab Results Component Value Date [...] <15 No results found for: MICROALBUR , [id number] In addition to the above an extensive [...] PHOS 4.2 10/07/2024 No results found for: XTHP81K PLAN Continue IV albumin Monitor renal panel [...] AM Colten Huertas MD, KISHOR LIN, CATHYF yarder Div. of Nephrology [facility] E-mail: [email or web address] * Carmen Bernal, OT - 10/07/2024 11:09 AM EDT Occupational Therapy Initial Assessment and Discharge Name: Julien Gilbert : 1985 Attending Physician: Fouzia Rene MD Admission Diagnosis: AMS Date: 10/07/2024 [facility] Pertinent hospital course: Yes [...] at 10/06/2024 2:33 AM EDT US Duplex Rtr-Vwq-Qlinbnh Comp (Results Pending) US Abdomen Complete (Results [...] no head imaging has been performed at [facility]. -CT Head w/o contrast -Imaging [...] Select Supplement: Boost-1 kcal/ml supplement ([facility] only) Code Status: Full Code [...] I reviewed the documentation by the medical fast food team member and agree as documented. Any [...] Juline Gilbert is a 39 y.o. male admitted for Metabolic encephalopathy Active Problems: Metabolic encephalopathy: Likely related to combination of hepatic, metabolic, and possibly infectious insults. Improving as he is A and O x 3 today. He and spouse also report fewer instances of difficulty with forming words. - Continue home lactulose and rifaximin Spontaneous Bacterial Peritonitis ([facility]): Cultures from OSH are growing gram- positive organisms.He is on vancomycin and ceftriaxone for now. Will follow-up on speciation and sensitivities. For now, he is afebrile and his white counts have trended down and mental status is improving. Decompensated cirrhosis ([facility]): Appreciate hepatology consult. He has started his transplant evaluation as an outpatient. We will follow-up with hepatology to discuss any inpatient testing that may need to be needed. - MELD labs daily - Continue home regimen with ursodiol, rifaximin and lactulose NADIYA (acute kidney injury) ([facility]): Appreciate nephrology consult. Likely has [...] needed for pain. Continue to monitor. Thrombocytopenia ([facility]) Renal mass, left CKD (chronic kidney disease) stage 4, GFR 15-29 ml/min ([facility]) Metabolic acidosis with normal anion gap and [...] another specialty or practice, other licensed professional (PT/OT/SMALL WIND ENERGY INSTALLER/RT), or a non-medical community professional: Nephrology, Hepatology Labs reviewed (1 pt each): CMP, CBC Test results reviewed (1 pt each): CXR, Head CT Review of notes from a different specialty or different practice: Nephrology, hepatology Use of parenteral controlled substances * Kiet Gardiner, TaniD - 10/06/2024 1:07 PM EDT Images from the original note were not included. [facility] Clinical Pharmacy Service: Vancomycin Monitoring Consult [...] AM #2 Blood culture-Peripheral site 2 Preliminary [id number] Peripheral 10/06/2024 1:04 AM #1 Blood culture-Peripheral site 1 Preliminary [id number] Peripheral --Vancomycin Concentrations-- Lab Results (Last 7 [...] US Retroperitoneal complete (Results Pending) US Duplex Rdh-Ebl-Erxrsvu Comp (Results Pending) CT Head WO contrast [...] PM EDT Hospital Medicine Attending Supervision Note [facility] // [facility] Julien Gilbert was seen 10/06/24 on [...] Lerner MD - 10/05/2024 2:42 PM EDT [facility] - [facility] Department of Medicine TRANSFER CALL NOTE Location [facility] ED History of Present Illness Julien [...] with plan to transfer to [facility] if needing admission. 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 Chest Pain Symptom Assessment: Asymptomatic 3. Heart Failure: Yes Class II 4. [facility] Clinical Frailty Scale: Mildly Frail Sedation Plan: Moderate Sedation with Local Anesthesia Antibiotic prophylaxis is not indicated. Mani Quan Interventional Judicial Assistant Pager: [phone] [1] Patient Active Problem List Diagnosis Decompensated [...] Peterson MD - 10/10/2024 10:05 AM EDT [facility] PRE-SEDATION ASSESSMENT, HISTORY & PHYSICAL Date: [...] Patient Active Problem List Diagnosis Decompensated cirrhosis ([facility]) Acute kidney injury superimposed on CKD ([facility]) Alcohol use disorder Metabolic encephalopathy Hypertension Other hyperlipidemia Thrombocytopenia ([facility]) Renal mass, left Abdominal pain Hypokalemia CKD (chronic kidney disease) stage 4, GFR 15-29 ml/min ([facility]) Metabolic acidosis with normal anion gap and bicarbonate losses GERD (gastroesophageal reflux disease) Hypothyroidism Itching Anemia BRBPR (bright red blood per rectum) SBP (spontaneous bacterial peritonitis) ([facility]) C Diff Diarrhea C. difficile diarrhea Neck [...] Strain: Low Risk (07/09/2024) Received from [facility] Overall Financial Resource Strain (CARDIA) Difficulty of [...] No Physical Activity: Unknown (07/14/2024) Received from [facility] Exercise Vital Sign Days of Exercise per Week: Patient unable to answer Minutes of Exercise per Session: Not on file Stress: Patient Unable To Answer (07/14/2024) Received from [facility] [employer] [place] [employer] Occupational Health - Occupational Stress Questionnaire Feeling of Stress : Patient unable to answer Social Connections: Patient Unable To Answer (07/14/2024) Received from [facility] Social Connection and Isolation Panel [NHANES] Frequency of Communication with Friends and Family: Patient unable to answer Frequency of Social Gatherings with Friends and Family: Patient unable to answer Attends Yazdanism Services: Patient unable to answer Active Member [...] 5,000 Units 3 times per day Bisi Hernandez DO 5,000 Units at 10/09/24 1306 lactulose [...] values in this interval not displayed. Imaging: @[id number]@ I have personally reviewed the imaging and have noted the following: Large recanalized umbilical vein Perihilar varices Replaced right hepatic artery Splenomegaly Spontaneous splenorenal shunt Large volume ascites, No portal vein thrombosis Assessment/Plan: A 39 y.o. male with ETOH decompensated by ascites, hepatic encephalopathy,bleeding esophageal Varices. Use and allocation of SCD, DIRECTOR OF SEARCH ENGINE OPTIMIZATION, DCD and LDLT allografts discussed in detail. [...] of long-term graft loss and delayed graft function. I also explained the use and rationale of CDC or PHS increased high-risk livers which carry a riskof HIV, HBV or HCV infection of 1% with the use of nucleic acid testing. We also discussed the operative risks including hepatic artery stenosis (1%), portal vein stenosis (1%), primary non function (1-5%), seroma (10%), wound infection, reoperation (30%), bile duct stenosis and stricture (10%) or leak and finally from surgery (5%). I also explained the shelter risks of transplantation and immunosuppression including viral infection and cancer both solid organand lymphoma. Kemar Sahni MD, Fellow, Multiorgan Abdominal Transplant Surgery. [facility]. 10/09/2024 3:16 PM [1] [...] Ortiz MD - 10/06/2024 12:00 AM EDT [facility] Internal Medicine - History [...] and sent studies for SBP analysis. [facility]. Review of Systems 14 pt ROS conducted and negative aside from that mentioned in above HPI Past Medical and Social History Lives in [place], [place] at bedside Notes that the patient [...] labs pending on admission to [facility] Assessment & Plan Julien Gilbert [...] AM EDT Hospital Medicine Attending Supervision Note [facility] // [facility] Julien Gilbert was seen 10/06/24 on [...] confusion and lethargy. HE was seen at [facility] ED were CT head unremarkable and RUQ with gallstones, abdominal ascites diagnostic para done and started on empiric CTX. Labs remarkable at OSH for K 4.2 Cl 101 Pmsazx01 BUN 62 (up from baseline) Cr 3.6 [...] another specialty or practice, other licensed professional (PT/OT/SMALL WIND ENERGY INSTALLER/RT), or a non-medical community professional: ed [...] Medicine Department of Internal Medicine Pager ID: [phone] 6:04 AM, 10/06/2024 documented in this encounter [...] can be located in EPIC Procedures (or [facility] Imaging) Tabs. Please call with any questions. BAKARI WAHL CNP Vascular & Interventional Radiology 10/10/2024,1:55 PM [facility]: [phone] * Lino Soto MD - 10/10/2024 12:06 PM EDT EGD Brief Op Note Julien Gilbert 10/05/2024 - 10/10/2024 Pre-op Diagnosis: Alcoholic cirrhosis of liver with ascites (CMS-HCC) [K70.31] Post-op Diagnosis: Portal gastropathy, Medium size, non-bleeding esophageal varices Procedure(s): EGD Surgeon(s): Lino Soto MD Anesthesia: MAC (Monitor Anesthesia Care) Staff: Fellow: Gerri Peterson MD Endoscopy Nurse: Kandice Castaneda RN Can Operator: Diana Kemp Estimated Blood Loss: Minimal Specimens: Drains: There were no complications unless listed below. LINO SOTO MD Date: 10/10/2024 Time: 12:18 PM * Lino Soto MD - 10/10/2024 11:48 AM EDT [id number] Procedure Date: 10/10/2024 11:48 AM Patient Name: Julien Gilbert Date of : 1985 Admit Type: Inpatient Age: 39 Gender: Male Note Status: Finalized Attending MD: Lino Soto MD, [id number] Procedure: Upper GI endoscopy Indications: Gastroesopahgeal variceal [...] verified by the physician, the nurse, the separator inserter and the health physics technician in the pre-procedure area in the [...] to hypotension Procedure Code(s): --- Professional --- 00877, GC, Esophagogastroduodenoscopy, flexible, transoral; diagnostic, including collection of specimen(s) by brushing or washing, when performed (separate procedure) Diagnosis Code(s): --- Professional --- I85.00, Esophageal 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 All rights reserved. The codes documented in this report are preliminary and upon technical sales support manager review may be revised to meet current compliance requirements. Attending Participation: I was present and participated during the entire procedure, including non-albarado portions. Lino Soto MD Lino Soto MD 10/10/2024 12:34:37 PM This report has been signed electronically.MD Vernon Appiah MD Gerri Petersno MD 10/10/2024 12:29:47 PM Total Procedure Duration Time 0 hours 7 minutes 12 seconds Scope In: 12:10:16 PM Scope Out: 12:17:[address] [place] [address], [facility] * Gill Le RN - [...] time. 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 Describes significant anxiety that occasionally limits his ability to drive, and stated he has to gizzard puller occasionally to collect himself, thought denied [...] need for sleep. Has not been on [facility] since stopping [...] to his health decline. He was raised Nondenominational and denied current engagement in any community [...] Pulse: 88 84 85 88 Resp: 16 18 Temp: 97.3 ??F (36.3 ??C) [...] or other abnormalities Cognition/Memory: short term and long distance operator memory intact. Attention and concentration: is [...] from the original note were not included. [facility] General Cardiology Consult Note [...] at baseline or with provocation, shows no erthi-zm-drnd atrial level shunt. - Pulmonary arteries: Systolic [...] 10/13/24, please keep NPO on 10/12/24 at [place] Risks and benefits of new therapies added and new invasive and non-invasive procedures/diagnostic testing planned discussed with and understood by the patient/family who agree with the above plan. Plan discussed with the attending physician Dr. Blanco. Recommendations are preliminary until this note is co- signed by the attending. Follow up appointments with Cardiology can be scheduled by calling [phone]. Thank you for the opportunity to participate in this patient's care. Please call orpage with any questions. Leonor Garcia MD Judicial Assistant I have personally seen, examined, reviewed all [...] 0659 10/11/24 0700 - 10/12/24 0659 Shift [id number] 1473-1215 24 Hour Total 5999-0803 5395-2865 4457-9250 24 Hour Total INTAKE P.O. 5146 964 0306 P.O. 2874 464 6713 Boost (mL) - [facility] only 240 240 I.V.(mL/kg) 450(3.8) [...] CNP Vascular & Interventional Radiology 10/10/2024,1:54 PM [facility]: [id number]) [1] Social History Tobacco Use Smoking Status [...] EDTAssociated Order(s): IP CONSULT TO INFECTIOUS DISEASES [facility] DEPARTMENT OF INFECTIOUS DISEASE INITIAL NOTE Referring Physician: Fouzia Rene MD Consult Attending: Daria Garcia Patient: Julien Gilbert CSN: [id number] Reason for Consult: CC: Abx management History [...] HE. He was born and raised in [facility] . No travel to the [facility]. 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 [...] Strain: Low Risk (07/09/2024) Received from [facility] Overall Financial Resource Strain (CARDIA) Difficulty of [...] No Physical Activity: Unknown (07/14/2024) Received from [facility] Exercise Vital Sign Days of Exercise per Week: Patient unable to answer Minutes of Exercise per Session: Not on file Stress: Patient Unable To Answer (07/14/2024) Received from [facility] [place] [facility] Occupational [employer] - Occupational Stress Questionnaire Feeling of Stress : Patient unable to answer Social Connections: Patient Unable To Answer (07/14/2024) Received from [facility] Social Connection and Isolation Panel [NHANES] Frequency of Communication with Friends and Family: Patient unable to answer Frequency of Social Gatherings with Friends and Family: Patient unable to answer Attends Yazdanism Services: Patient unable to answer Active Member [...] Refills: 0 Comments: [facility] [place] [address] sodium bicarbonate 650 MG tablet Take 2 [...] Aphasia [R47.01] 10/06/2024 SBP (spontaneous bacterial peritonitis) ([facility]) [K65.2] 09/08/2024 Metabolic acidosis with normal anion gap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 Comment:Specimen checked for clots. None detected. MPV 8.7 7.5 - 11.5 fL 10/15/2024 6:51 AM EDT [facility] Whole Blood 10/15/2024 6:0 8 AM EDT 10/15/2024 6:17 AM EDT us Eileen Schroeder MD, PhD LAB BLOOD ORDERABLES Final Result Performing Organization Address [facility] Co de Phone Number [address] [address], [facility] * PRA-HLA Ab Screen (Cytotoxic) (10/15/2024 6:08 AM EDT) Pathologist [facility] The request and specimen(s) for this test have been received and transported to the [facility] at [address] [place] [address]. The [facility] will report results directly to the client. 10/15/2024 6:42 AM EDT [facility] Comment:The request and spec imen(s) for this test have been received and transported to the [facility] at [address] [place] [address]. The [facility] will report results directly to the client. Serum 10/15/2024 6:08 AM EDT 10/15/2024 6:42 AM EDT us Cosmo Pacheco MD LAB BLOOD ORDERABLES Final Resul t Performing Organization Address [facility] Co de Phone Number [facility] [address] [place] [address], [place] * LEFT HEART CATH (10/14/2024 2:09 PM EDT) 10/14/2024 11:4 7 AM EDT Narrative [facility] - 10/14/2024 9:27 PM EDT *[facility]* Cardiac Maintenance Truck Driver [address] [place] [address] CATHETERIZATION LAB STUDY Patient: Julien Gilbert Age: [...] manner. 3. Right radial artery access. A [id number] Glidesheath - Slender - .021 sheath was [...] + + !LV pressure s/d, ed !, dP/rx=1312pv Hg/s! + + + !Aortic pressure s/d (m)!106/58 (75) ! + + + ATTESTATION: Dr. Matta was present for the entire procedure. Dr. Jay Quan was the initial author of this report. Prepared and electronically signed by Irving Matta MD [id number] Procedure Note Irving Matta MD - 10/14/2024 *[facility]* Cardiac Maintenance Truck Driver [address] [place] [address] CATHETERIZATION LAB STUDY Patient: Julien Gilbert Age: [...] manner. 3. Right radial artery access. A [id number] Glidesheath - Slender - .021sheath was advanced [...] complications. Contrast: Omnipaque 350 25ml (total dose). [id number] 125ml (wasted). Radiation: Fluoroscopy time: 15min. Total [...] + !LV pressure s/d, ed !112/, 22, dP/vl=9648mf Hg/s! + + + !Aortic pressure s/d (m)!106/58 (75) ! + + + ATTESTATION: Dr. Matta was present for the entire procedure. Dr. Jay Quan wasthe initial author of this report. Prepared and electronically signed by Irving Matta MD [id number]:50 [place] [id number] Final Result Performing Organization Address City/[facility]/ZIP Co de Phone Number [facility] * Transfuse Fresh Frozen Plasma Transfusion Rate: Per dept routine (10/14/2024 2:08 PM EDT) us Eleazar Nguyễn MD NURSING TREATMENT ORDER PAL - BLOOD ADMIN Final Result Performing Organization Address City/[facility]/ZIP Co de Phone Number EXTERNAL * [...] Antibody Screen Negative 10/14/2024 9:11 AM EDT [facility] Blood 10/14/2024 8:21 AM EDT 10/14/2024 8:33 AM EDT Narrative [facility] - 10/14/2024 9:26 AM EDT Testing performed by [facility] Transfusion Service Eleazar Nguyễn MD BLOOD BANK TEST ORDERAB LES Final Result Performing Organization Address City/[facility] Co de Phone Number [facility] [address] [place] [address]. [address] * ABO/Rh (10/14/2024 8:21 AM EDT) ABO Grouping O 10/14/2024 8:55 AM EDT [facility] Rh Type Positive 10/14/2024 8:55 AM EDT [facility] Blood 10/14/2024 8:21 AM EDT 10/14/2024 8:33 AM EDT Eleazar Nguyễn MD BLOOD BANK TEST ORDERAB LES Final Result Performing Organization Address City/[facility] Co de Phone Number [facility] [address] [place] [address]. [address] * (ABNORMAL) Protime-INR (10/14/2024 2:53 AM EDT) Protime 23.8(H) 12.1 - 15.1 seconds 10/14/2024 4:34 AM EDT [facility] INR 2.1(H) 0.9 - 1.1 10/14/2024 4:34 AM EDT [facility] Comment: RECOMMENDED THERAPEUTIC RANGES USING INR : Stable oral anticoagulant therapy: 2.0 - 3.0 Mechanical prosthetic heart valve: 2.5 - 3.5 Recurrent acute myocardial infarction: 2.5 - 3.5 Plasma 10/14/2024 2:53 AM EDT 10/14/2024 4:16 AM EDT Eileen Schroeder MD, PhD LAB BLOOD ORDERABLES Final Result [facility] [address] * (ABNORMAL) Hepatic Function Panel (10/14/2024 2:53 AM EDT) Total Bilirubin 7.2(H) 0.0 - 1.5 mg/dL 10/14/2024 4:45 AM EDT [facility] Bilirubin, Direct 3.86(H) 0.00 - 0.40 mg/dL 10/14/2024 4:45 AM EDT [facility] AST 41(H) 13 - 39 U/L 10/14/2024 4:45 AM EDT [facility] ALT 22 7 - 52 U/L 10/14/2024 4:45 AM EDT [facility] Alkaline Phosphatase 119 36 - 125 U/L 10/14/2024 4:45 AM EDT [facility] Total Protein 4.6(L) 6.4 - 8.9 g/dL 10/14/2024 4:45 AM EDT [facility] Albumin 3.3(L) 3.5 - 5.7 g/dL 10/14/2024 4:45 AM EDT [facility] Bilirubin, Indirect 3.34(H) 0.00 - 1.10 mg/dL 10/14/2024 4:45 AM EDT [facility] Plasma 10/14/2024 2:53 AM EDT 10/14/2024 4:16 AM EDT Eileen Schroeder MD, PhD LAB BLOOD ORDERABLES Final Result [facility] [address] [facility] [place] [address], [facility] * Magnesium (10/14/2024 2:53 AM EDT) Magnesium 1.9 1.5 - 2.5 mg/dL 10/14/2024 4:45 AM EDT [facility] Plasma 10/14/2024 2:53 AM EDT 10/14/2024 4:16 AM EDT us Eileen Schroeder MD, PhD LAB BLOOD ORDERABLES Final Result [facility] [address] [place] [address], [facility] * (ABNORMAL) Renal Function Panel w/EGFR (10/14/2024 2:53 AM EDT) Sodium 136 133 - 146 mmol/L 10/14/2024 4:45 AM EDT [facility] Potassium 3.5 3.5 - 5.3 mmol/L 10/14/2024 4:45 AM EDT [facility] Chloride 107 98 - 110 mmol/L 10/14/2024 4:45 AM EDT [facility] CO2 16(L) 21 - 33 mmol/L 10/14/2024 4:45 AM EDT [facility] Anion Gap 13 3 - 16 mmol/L 10/14/2024 4:45 AM EDT [facility] BUN 55(H) 7 - 25 mg/dL 10/14/2024 4:45 AM EDT [facility] Creatinine 3.01(H) 0.60 - 1.30 mg/dL 10/14/2024 4:45 AM EDT [facility] Glucose 95 70 - 100 mg/dL 10/14/2024 4:45 AM EDT [facility] Calcium 8.5(L) 8.6 - 10.3 mg/dL 10/14/2024 4:45 AM EDT [facility] Phosphorus 4.4 2.1 - 4.7 mg/dL 10/14/2024 4:45 AM EDT [facility] Albumin 3.3(L) 3.5 - 5.7 g/dL 10/14/2024 4:45 AM EDT [facility] Osmolality, Calculated 297 278 - 305 mOsm/kg 10/14/2024 4:45 AM EDT [facility] EGFR 26 10/14/2024 4:45 AM EDT [facility] Comment:As of 2021, the [...] MD, PhD LAB BLOOD ORDERABLES Final Result [facility] [address] * (ABNORMAL) CBC (10/14/2024 2:53 AM EDT) WBC 5.5 3.8 - 10.8 10E3/uL 10/14/2024 5:00 AM EDT [facility] RBC 2.09(L) 4.20 - 5.80 10E6/uL 10/14/2024 5:00 AM EDT [facility] Hemoglobin 7.6(L) 13.2 - 17.1 g/dL 10/14/2024 5:00 AM EDT [facility] Hematocrit 21.3(L) 38.5 - 50.0 % 10/14/2024 5:00 AM EDT [facility] MCV 101.7(H) 80.0 - 100.0 fL 10/14/2024 5:00 AM EDT [facility] MCH 36.3(H) 27.0 - 33.0 pg 10/14/2024 5:00 AM EDT [facility] MCHC 35.7 32.0 - 36.0 g/dL 10/14/2024 5:00 AM EDT [facility] RDW 17.6(H) 11.0 - 15.0 % 10/14/2024 5:00 AM EDT [facility] Platelets 35(L) 140 - 400 10E3/uL 10/14/2024 5:00 AM EDT [facility] Comment: Specimen checked for clots. None detected. Slide Reviewed for PLT Clumps. None Seen. MPV 8.5 7.5 - 11.5 fL 10/14/2024 5:00 AM EDT [facility] Whole Blood 10/14/2024 2:53 AM EDT 10/14/2024 4:17 AM EDT us Eileen Schroeder MD, PhD LAB BLOOD ORDERABLES Final Result [facility] [address] [id number], [facility] * Cardiac Cath Documents Scan (10/14/2024 2:06 AM EDT) us Scanning [facility] SCAN DOCS - NO RESULTS [...] GADOBUTROL 1 MMOL/ML INTRAVENOUS SYRINGE ([facility]) administered intravenously COMPARISON: CT 09/03/2024. [...] GADOBUTROL 1 MMOL/ML INTRAVENOUS SYRINGE ([facility])administered intravenously COMPARISON: CT 09/03/2024. Ultrasound [...] PM EDT us Eileen Schroeder MD, PhD G MRI ORDERABLES Fi nal Result * (ABNORMAL) Protime-INR (10/13/2024 5:35 AM EDT) Protime 24.4(H) 12.1 - 15.1 seconds 10/13/2024 6:12 AM EDT [facility] INR 2.1(H) 0.9 - 1.1 [...] City/State/[facility] Co de Phone Number [facility] [address] [place] [address], [facility] * (ABNORMAL) Hepatic Function Panel (10/13/2024 5:35 AM EDT) Total Bilirubin 6.5(H) 0.0 - 1.5 mg/dL 10/13/2024 6:30 AM EDT [facility] Bilirubin, Direct 3.53(H) 0.00 - 0.40 mg/dL 10/13/2024 6:30 AM EDT [facility] AST 42(H) 13 - 39 U/L 10/13/2024 6:30 AM EDT [facility] ALT 19 7 - 52 U/L 10/13/2024 6:30 AM EDT [facility] Alkaline Phosphatase 108 36 - 125 U/L 10/13/2024 6:30 AM EDT [facility] Total Protein 4.4(L) 6.4 - 8.9 g/dL 10/13/2024 6:30 AM EDT [facility] Albumin 3.1(L) 3.5 - 5.7 g/dL 10/13/2024 6:30 AM EDT [facility] Bilirubin, Indirect 2.97(H) 0.00 - 1.10 mg/dL 10/13/2024 6:30 AM EDT [facility] Plasma 10/13/2024 5:3 5 AM EDT 10/13/2024 5:52 AM EDT Eileen Schroeder MD, PhD LAB BLOOD ORDERABLES Final Result [facility] [address] * Magnesium (10/13/2024 5:35 AM EDT) Pathologist [facility] Magnesium 2.0 1.5 - 2.5 mg/dL 10/13/2024 6:30 AM EDT [facility] Plasma 10/13/2024 5:35 AM EDT 10/13/2024 5:52 AM EDT us Eileen Schroeder MD, PhD LAB BLOOD ORDERABLES Final Result [facility] [address] * (ABNORMAL) Renal Function Panel w/EGFR (10/13/2024 5:35 AM EDT) Pathologist [facility] Sodium 134 133 - 146 mmol/L 10/13/2024 6:30 AM EDT [facility] Potassium 3.7 3.5 - 5.3 mmol/L 10/13/2024 6:30 AM EDT [facility] Chloride 109 98 - 110 mmol/L 10/13/2024 6:30 AM EDT [facility] CO2 14(L) 21 - 33 mmol/L 10/13/2024 6:30 AM EDT [facility] Anion Gap 11 3 - 16 mmol/L 10/13/2024 6:30 AM EDT [facility] BUN 54(H) 7 - 25 mg/dL 10/13/2024 6:30 AM EDT [facility] Creatinine 2.99(H) 0.60 - 1.30 mg/dL 10/13/2024 6:30 AM EDT [facility] Glucose 116(H) 70 - 100 mg/dL 10/13/2024 6:30 AM EDT [facility] Calcium 8.3(L) 8.6 - 10.3 mg/dL 10/13/2024 6:30 AM EDT [facility] Phosphorus 4.5 2.1 - 4.7 mg/dL 10/13/2024 6:30 AM EDT [facility] Albumin 3.1(L) 3.5 - 5.7 g/dL 10/13/2024 6:30 AM EDT [facility] Osmolality, Calculated 294 278 - 305 mOsm/kg 10/13/2024 6:30 AM EDT [facility] EGFR 26 10/13/2024 6:30 AM EDT [facility] Comment:As of 2021, the [...] MD, PhD LAB BLOOD ORDERABLES Final Result [facility] [address] [place] [address], [facility] * (ABNORMAL) CBC (10/13/2024 5:35 AM EDT) WBC 4.7 3.8 - 10.8 10E3/uL 10/13/2024 6:22 AM EDT [facility] RBC 2.06(L) 4.20 - 5.80 10E6/uL 10/13/2024 6:22 AM EDT [facility] Hemoglobin 7.4(L) 13.2 - 17.1 g/dL 10/13/2024 6:22 AM EDT [facility] Hematocrit 21.7(L) 38.5 - 50.0 % 10/13/2024 6:22 AM EDT [facility] MCV 105.4(H) 80.0 - 100.0 fL 10/13/2024 6:22 AM EDT [facility] MCH 35.9(H) 27.0 - 33.0 pg 10/13/2024 6:22 AM EDT [facility] MCHC 34.0 32.0 - 36.0 g/dL 10/13/2024 6:22 AM EDT [facility] RDW 18.5(H) 11.0 - 15.0 % 10/13/2024 6:22 AM EDT [facility] Platelets 35(L) 140 - 400 10E3/uL 10/13/2024 6:22 AM EDT [facility] Comment: CNV Specimen checked for clots. None detected. MPV 8.4 7.5 - 11.5 fL 10/13/2024 6:22 AM EDT [facility] Whole Blood 10/13/2024 5:35 AM EDT 10/13/2024 5:53 AM EDT us Eileen Schroeder MD, PhD LAB BLOOD ORDERABLES Final Result [facility] [address] * (ABNORMAL) Ammonia (10/13/2024 5:35 AM EDT) Ammonia 203(HH) 27 - 90 ug/dL 10/13/2024 7:16 AM EDT [facility] Comment: HEMOLYSIS EVIDENT. RESULTS MAY BE INFLUENCED. Critical Result [id number] Called to and read back by: KEY MELO RN at: 10/13/2024 07:15:55 by:[email or web address] Plasma 10/13/2024 5:35 AM EDT 10/13/2024 6:19 AM EDT us Ellis Mays DO LAB BLOOD ORDERABLES Final Resul t [facility] [address] * CARISA Rhythm Strip - Scan (10/12/2024 10:30 PM EDT) us Scanning [employer] SCAN DOCS - NO RESULTS Final Res ult * (ABNORMAL) Protime-INR (10/12/2024 5:44 AM EDT) Protime 25.7(H) 12.1 - 15.1 seconds 10/12/2024 6:12 AM EDT [facility] INR 2.3(H) 0.9 - 1.1 10/12/2024 6:12 AM EDT [facility] Comment: RECOMMENDED THERAPEUTIC RANGES USING INR : Stable oral anticoagulant therapy: 2.0 - 3.0 Mechanical prosthetic heart valve: 2.5 - 3.5 Recurrent acute myocardial infarction: 2.5 - 3.5 Plasma 10/12/2024 5:44 AM EDT 10/12/2024 5:58 AM EDT us Eileen Schroeder MD, PhD LAB BLOOD ORDERABLES Final Result [facility] [address] * (ABNORMAL) Hepatic Function Panel (10/12/2024 5:44 AM EDT) Total Bilirubin 6.5(H) 0.0 - 1.5 mg/dL 10/12/2024 6:29 AM EDT [facility] Bilirubin, Direct 3.64(H) 0.00 - 0.40 mg/dL 10/12/2024 6:29 AM EDT [facility] AST 40(H) 13 - 39 U/L 10/12/2024 6:29 AM EDT [facility] ALT 19 7 - 52 U/L 10/12/2024 6:29 AM EDT [facility] Alkaline Phosphatase 99 36 - 125 U/L 10/12/2024 6:29 AM EDT [facility] Total Protein 4.2(L) 6.4 - 8.9 g/dL 10/12/2024 6:29 AM EDT [facility] Albumin 3.1(L) 3.5 - 5.7 g/dL 10/12/2024 6:29 AM EDT [facility] Bilirubin, Indirect 2.86(H) 0.00 - 1.10 mg/dL 10/12/2024 6:29 AM EDT [facility] Plasma 10/12/2024 5:44 AM EDT 10/12/2024 5:58 AM EDT Eileen Schroeder MD, PhD LAB BLOOD ORDERABLES Final Result Performing Organization Address [facility] Co de Phone Number [facility] [address] * Magnesium (10/12/2024 5:44 AM EDT) Magnesium 1.9 1.5 - 2.5 mg/dL 10/12/2024 6:29 AM EDT [facility] Plasma 10/12/2024 5:44 AM EDT 10/12/2024 5:58 AM EDT Eileen Schroeder MD, PhD LAB BLOOD ORDERABLES Final Result Performing Organization Address [facility] de Phone Number [facility] [address] [place] [address] * (ABNORMAL) Renal Function Panel w/EGFR (10/12/2024 5:44 AM EDT) Sodium 135 133 - 146 mmol/L 10/12/2024 6:29 AM EDT [facility] Potassium 3.7 3.5 - 5.3 mmol/L 10/12/2024 6:29 AM EDT [facility] Chloride 109 98 - 110 mmol/L 10/12/2024 6:29 AM EDT [facility] CO2 17(L) 21 - 33 mmol/L 10/12/2024 6:29 AM EDT [facility] Anion Gap 9 3 - 16 mmol/L 10/12/2024 6:29 AM EDT [facility] BUN 52(H) 7 - 25 mg/dL 10/12/2024 6:29 AM EDT [facility] Creatinine 2.94(H) 0.60 - 1.30 mg/dL 10/12/2024 6:29 AM EDT [facility] Glucose 121(H) 70 - 100 mg/dL 10/12/2024 6:29 AM EDT [facility] Calcium 8.5(L) 8.6 - 10.3 mg/dL 10/12/2024 6:29 AM EDT [facility] Phosphorus 4.6 2.1 - 4.7 mg/dL 10/12/2024 6:29 AM EDT [facility] Albumin 3.1(L) 3.5 - 5.7 g/dL 10/12/2024 6:29 AM EDT [facility] Osmolality, Calculated 295 278 - 305 mOsm/kg 10/12/2024 6:29 AM EDT [facility] EGFR 27 10/12/2024 6:29 AM EDT [facility] Comment:As of 2021, the [...] MD, PhD LAB BLOOD ORDERABLES Final Result [facility] [address] [facility] [place] [address], [facility] * (ABNORMAL) CBC (10/12/2024 5:44 AM EDT) WBC 3.3(L) 3.8 - 10.8 10E3/uL 10/12/2024 7:06 AM EDT [facility] RBC 1.95(L) 4.20 - 5.80 10E6/uL 10/12/2024 7:06 AM EDT [facility] Hemoglobin 7.2(L) 13.2 - 17.1 g/dL 10/12/2024 7:06 AM EDT [facility] Hematocrit 19.7(L) 38.5 - 50.0 % 10/12/2024 7:06 AM EDT [facility] MCV 101.2(H) 80.0 - 100.0 fL 10/12/2024 7:06 AM EDT [facility] MCH 37.0(H) 27.0 - 33.0 pg 10/12/2024 7:06 AM EDT [facility] MCHC 36.5(H) 32.0 - 36.0 g/dL 10/12/2024 7:06 AM EDT [facility] RDW 17.6(H) 11.0 - 15.0 % 10/12/2024 7:06 AM EDT [facility] Platelets 30(L) 140 - 400 10E3/uL 10/12/2024 7:06 AM EDT [facility] Comment: Specimen checked for clots. None detected. Slide Reviewed for PLT Clumps. None Seen. Platelet Estimate Decreased 10/12/2024 7:06 AM EDT [facility] MPV 8.3 7.5 - 11.5 fL 10/12/2024 7:06 AM EDT [facility] Whole Blood 10/12/2024 5:44 AM EDT 10/12/2024 5:58 AM EDT Narrative [facility] - 10/12/2024 7:06 AM EDT Peripheral blood smear was scanned per review criteria approved by the laboratory medical professionals. us Eileen Schroeder MD, PhD LAB BLOOD ORDERABLES Final Result [facility] [address] [id number], [facility] * CARISA Rhythm Strip - Scan (10/11/2024 10:04 PM EDT) us Scanning Uchhim SCAN DOCS - NO RESULTS Final Res ult * (ABNORMAL) Protime-INR (10/11/2024 3:02 AM EDT) Pathologist [facility] Protime 26.8(H) 12.1 - 15.1 seconds 10/11/2024 [...] City/State/[facility] Co de Phone Number [facility] [address] * (ABNORMAL) Hepatic Function Panel (10/11/2024 3:02 AM EDT) Pathologist [facility] Total Bilirubin 7.3(H) 0.0 - 1.5 mg/dL 10/11/2024 3:38 AM EDT [facility] Bilirubin, Direct 3.85(H) 0.00 - 0.40 mg/dL 10/11/2024 3:38 AM EDT [facility] AST 39 13 - 39 U/L 10/11/2024 3:38 AM EDT [facility] ALT 20 7 - 52 U/L 10/11/2024 3:38 AM EDT [facility] Alkaline Phosphatase 88 36 - 125 U/L 10/11/2024 3:38 AM EDT [facility] Total Protein 4.5(L) 6.4 - 8.9 g/dL 10/11/2024 3:38 AM EDT [facility] Albumin 3.3(L) 3.5 - 5.7 g/dL 10/11/2024 3:38 AM EDT [facility] Bilirubin, Indirect 3.45(H) 0.00 - 1.10 mg/dL 10/11/2024 3:38 AM EDT [facility] Plasma 10/11/2024 3:02 AM EDT 10/11/2024 3:08 AM EDT Eileen Schroeder MD, PhD LAB BLOOD ORDERABLES Final Result Performing Organization Address [facility]/ZIP Co de Phone Number [facility] [address] * Magnesium (10/11/2024 3:02 AM EDT) Magnesium 2.0 1.5 - 2.5 mg/dL 10/11/2024 3:38 AM EDT [facility] Plasma 10/11/2024 3:02 AM EDT 10/11/2024 3:08 AM EDT Eileen Schroeder MD, PhD LAB BLOOD ORDERABLES Final Result Performing Organization Address [facility] de Phone Number [facility] [address] * (ABNORMAL) Renal Function Panel w/EGFR (10/11/2024 3:02 AM EDT) Sodium 134 133 - 146 mmol/L 10/11/2024 3:38 AM EDT [facility] Potassium 3.6 3.5 - 5.3 mmol/L 10/11/2024 3:38 AM EDT [facility] Chloride 108 98 - 110 mmol/L 10/11/2024 3:38 AM EDT [facility] CO2 16(L) 21 - 33 mmol/L 10/11/2024 3:38 AM EDT [facility] Anion Gap 10 3 - 16 mmol/L 10/11/2024 3:38 AM EDT [facility] BUN 49(H) 7 - 25 mg/dL 10/11/2024 3:38 AM EDT [facility] Creatinine 2.77(H) 0.60 - 1.30 mg/dL 10/11/2024 3:38 AM EDT [facility] Glucose 112(H) 70 - 100 mg/dL 10/11/2024 3:38 AM EDT [facility] Calcium 8.9 8.6 - 10.3 mg/dL 10/11/2024 3:38 AM EDT [facility] Phosphorus 3.5 2.1 - 4.7 mg/dL 10/11/2024 3:38 AM EDT [facility] Albumin 3.3(L) 3.5 - 5.7 g/dL 10/11/2024 3:38 AM EDT [facility] Osmolality, Calculated 292 278 - 305 mOsm/kg 10/11/2024 3:38 AM EDT [facility] EGFR 29 10/11/2024 3:38 AM EDT [facility] Comment:As of 2021, the [...] MD, PhD LAB BLOOD ORDERABLES Final Result [facility] [address] [place] [address], [facility] * (ABNORMAL) CBC (10/11/2024 3:02 AM EDT) WBC 4.0 3.8 - 10.8 10E3/uL 10/11/2024 3:55 AM EDT [facility] RBC 2.11(L) 4.20 - 5.80 10E6/uL 10/11/2024 3:55 AM EDT [facility] Hemoglobin 7.7(L) 13.2 - 17.1 g/dL 10/11/2024 3:55 AM EDT [facility] Hematocrit 21.2(L) 38.5 - 50.0 % 10/11/2024 3:55 AM EDT [facility] MCV 100.5(H) 80.0 - 100.0 fL 10/11/2024 3:55 AM EDT [facility] MCH 36.4(H) 27.0 - 33.0 pg 10/11/2024 3:55 AM EDT [facility] MCHC 36.2(H) 32.0 - 36.0 g/dL 10/11/2024 3:55 AM EDT [facility] RDW 17.9(H) 11.0 - 15.0 % 10/11/2024 3:55 AM EDT [facility] Platelets 32(L) 140 - 400 10E3/uL 10/11/2024 3:55 AM EDT [facility] Comment: Specimen checked for clots. None detected. Slide Reviewed for PLT Clumps. None Seen. Platelet Estimate Decreased 10/11/2024 3:55 AM EDT [facility] MPV 8.1 7.5 - 11.5 fL 10/11/2024 3:55 AM EDT [facility] Whole Blood 10/11/2024 3:02 AM EDT 10/11/2024 3:08 AM EDT Narrative [facility] - 10/11/2024 3:55 AM EDT Peripheral blood smear was scanned per review criteria approved by the laboratory medical professionals. us Eileen Schroeder MD, PhD LAB BLOOD ORDERABLES Final Result [facility] [address] [place], [place] [address] * Vancomycin, random (10/11/2024 3:02 AM EDT) Vancomycin Random 13.4 ug/mL 10/11/2024 3:37 AM EDT [facility] Comment:Reference range not established for this test. Plasma 10/11/2024 3:02 AM EDT 10/11/2024 3:08 AM EDT us Jodi Angel PharmD LAB BLOOD ORDERABLES Final Result Performing Organization Address City/State/[facility] Co de Phone Number [facility] [address] [place] [address], [facility] * IR Paracentesis incl [...] diagnostic and therapeutic paracentesis. Bakari Wahl CNP, Push Button Switch Assembler Procedure and Findings: The procedure was performed [...] for diagnostic andtherapeutic paracentesis. Bakari Wahl CNP, Push Button Switch Assembler Procedure and Findings: The procedure was performed [...] primary team. Report Verified by: Bakari Wahl, [employer] at 10/10/2024 3:31 PM EDT Chari Vanegas MD IMG IR ORDERABLES Final Result * Stress Testing Lab - scan (10/10/2024 3:08 PM EDT) us Scanning Uchhim SCAN DOCS - NO RESULTS Final Res ult * (ABNORMAL) Body fluid cell count (10/10/2024 1:51 PM EDT) Color, Fluid Yellow(A) Colorless, Pale Yellow 10/10/2024 5:29 PM EDT [facility] Clarity, Fluid Clear 10/10/2024 5:29 PM EDT [facility] Neutrophil %, Fluid 9 % 10/10/2024 5:29 PM EDT [facility] Lymphocytes %, Fluid 13 % 10/10/2024 5:29 PM EDT [facility] Mesothelial %, Fluid 6 % 10/10/2024 5:29 PM EDT [facility] Macrophage %, Fluid 72 % 10/10/2024 5:29 PM EDT [facility] RBC, Fluid 2,662 /uL 10/10/2024 4:41 PM EDT [facility] Total Nucleated Cells, Fluid 89 /uL 10/10/2024 4:41 PM EDT [facility] Comment:Total Nucleated Cell s represent WBCs and other nucleated cells in the fluid such as lining cells. Ascitic Fluid ABDOMEN / Unknown 1:51 PM EDT 10/10/2024 3:56 PM EDT us Gerri Peterson MD BODY FLUIDS AND STOOLS ORDERABL ES Final Result [facility] [address] [place] [address], [facility] * Body Fluid Culture plus Stain (10/10/2024 1:51 PM EDT) Gram Stain Result Cytospin Results: [facility] Gram Stain Result Polymorphonuclear Leukocytes Seen; [facility] Gram Stain Result No Organisms Seen; [facility] Culture Result No Growth After 5 Days [facility] Fluid ABDOMEN / Unknown 10/10/2024 1:51 PM EDT 10/10/2024 3:56 PM EDT us Gerri Peterson MD MICROBIOLOGY - GENERAL ORDERABL ES Final Result [facility] [address] [place] [address], [facility] * UPPER GI ENDOSCOPY (10/10/2024 11:48 AM EDT) 10/10/2024 11:4 8 AM EDT Narrative [facility] - 10/10/2024 12:34 PM EDT [id number] Procedure Date: 10/10/2024 11:48 AM Patient Name: Julien Gilbert Date of : 1985 Admit Type: Inpatient Age: 39 Gender: Male Note Status: Finalized Attending MD: Lino Soto MD, [id number] Procedure: Upper GI endoscopy Indications: Gastroesopahgeal variceal [...] verified by the physician, the nurse, the separator inserter and the health physics technician in the pre-procedure area in the [...] to hypotension Procedure Code(s): --- Professional --- 44535, GC, Esophagogastroduodenoscopy, flexible, transoral; diagnostic, including collection of specimen(s) by brushing or washing, when performed (separate procedure) Diagnosis Code(s): --- Professional --- I85.00, Esophageal 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 All rights reserved. The codes documented in this report are preliminary and upon technical sales support manager review may be revised to meet current [...] In: 12:10:16 PM Scope Out: 12:17:[address] [place] [address], [facility] us Provider Not In System PROCEDURE/MINOR SURGICAL ORDERABLES Final Result Performing Organization Address City/State/[facility] Co de Phone Number [facility] [...] BLOOD ORDERABLES Final Result Performing Organization Address [facility] Co de Phone Number [facility] [address] * (ABNORMAL) Hepatic Function Panel (10/10/2024 5:23 AM EDT) Total Bilirubin 8.6(H) 0.0 - 1.5 mg/dL 10/10/2024 6:21 AM EDT [facility] Bilirubin, Direct 4.65(H) 0.00 - 0.40 mg/dL 10/10/2024 6:21 AM EDT [facility] AST 40(H) 13 - 39 U/L 10/10/2024 6:21 AM EDT [facility] ALT 22 7 - 52 U/L 10/10/2024 6:21 AM EDT [facility] Alkaline Phosphatase 118 36 - 125 U/L 10/10/2024 6:21 AM EDT [facility] Total Protein 4.6(L) 6.4 - 8.9 g/dL 10/10/2024 6:21 AM EDT [facility] Albumin 3.3(L) 3.5 - 5.7 g/dL 10/10/2024 6:21 AM EDT [facility] Bilirubin, Indirect 3.95(H) 0.00 - 1.10 mg/dL 10/10/2024 6:21 AM EDT [facility] Plasma 10/10/2024 5:23 AM EDT 10/10/2024 5:50 AM EDT us Eileen Schroeder MD, PhD LAB BLOOD ORDERABLES Final Result Performing Organization Address [facility] Co de Phone Number [facility] [address] [facility] * Magnesium (10/10/2024 5:23 AM EDT) Magnesium 1.9 1.5 - 2.5 mg/dL 10/10/2024 6:21 AM EDT [facility] Plasma 10/10/2024 5:23 AM EDT 10/10/2024 5:50 AM EDT us Eileen Schroeder MD, PhD LAB BLOOD ORDERABLES Final Result [facility] [address] [place] [address], [facility] * (ABNORMAL) Renal Function Panel w/EGFR (10/10/2024 5:23 AM EDT) Sodium 135 133 - 146 mmol/L 10/10/2024 6:21 AM EDT [facility] Potassium 3.6 3.5 - 5.3 mmol/L 10/10/2024 6:21 AM EDT [facility] Chloride 108 98 - 110 mmol/L 10/10/2024 6:21 AM EDT [facility] CO2 17(L) 21 - 33 mmol/L 10/10/2024 6:21 AM EDT [facility] Anion Gap 10 3 - 16 mmol/L 10/10/2024 6:21 AM EDT [facility] BUN 53(H) 7 - 25 mg/dL 10/10/2024 6:21 AM EDT [facility] Creatinine 2.85(H) 0.60 - 1.30 mg/dL 10/10/2024 6:21 AM EDT [facility] Glucose 113(H) 70 - 100 mg/dL 10/10/2024 6:21 AM EDT [facility] Calcium 9.0 8.6 - 10.3 mg/dL 10/10/2024 6:21 AM EDT [facility] Phosphorus 3.3 2.1 - 4.7 mg/dL 10/10/2024 6:21 AM EDT [facility] Albumin 3.3(L) 3.5 - 5.7 g/dL 10/10/2024 6:21 AM EDT [facility] Osmolality, Calculated 295 278 - 305 mOsm/kg 10/10/2024 6:21 AM EDT [facility] EGFR 28 10/10/2024 6:21 AM EDT [facility] Comment:As of 2021, the [...] MD, PhD LAB BLOOD ORDERABLES Final Result [facility] [address] * (ABNORMAL) CBC (10/10/2024 5:23 AM EDT) WBC 5.1 3.8 - 10.8 10E3/uL 10/10/2024 6:14 AM EDT [facility] RBC 2.04(L) 4.20 - 5.80 10E6/uL 10/10/2024 6:14 AM EDT [facility] Hemoglobin 7.3(L) 13.2 - 17.1 g/dL 10/10/2024 6:14 AM EDT [facility] Hematocrit 20.6(L) 38.5 - 50.0 % 10/10/2024 6:14 AM EDT [facility] MCV 101.2(H) 80.0 - 100.0 fL 10/10/2024 6:14 AM EDT [facility] MCH 36.0(H) 27.0 - 33.0 pg 10/10/2024 6:14 AM EDT [facility] MCHC 35.5 32.0 - 36.0 g/dL 10/10/2024 6:14 AM EDT [facility] RDW 17.6(H) 11.0 - 15.0 % 10/10/2024 6:14 AM EDT [facility] Platelets 39(L) 140 - 400 10E3/uL 10/10/2024 6:14 AM EDT [facility] Comment: CNV Specimen checked for clots. None detected. MPV 9.8 7.5 - 11.5 fL 10/10/2024 6:14 AM EDT [facility] Whole Blood 10/10/2024 5:23 AM EDT 10/10/2024 5:51 AM EDT us Eileen Schroeder MD, PhD LAB BLOOD ORDERABLES Final Result Performing Organization Address City/[facility]/ZIP Co de Phone Number [facility] [address] [place] [address] * Vancomycin, random (10/10/2024 5:23 AM EDT) Vancomycin Random 16.4 ug/mL 10/10/2024 6:22 AM EDT [facility] Comment:Reference range not established for this test. Plasma 10/10/2024 5:23 AM EDT 10/10/2024 5:51 AM EDT us Jodi FreireD LAB BLOOD ORDERABLES Final Result Performing Organization Address [facility] Co de Phone Number [facility] [address] [place] [address] * ECHO STRESS W/ CONTRAST (10/09/2024 4:37 PM EDT) Anatomical Region Laterality Modality Chest Ultrasound 10/09/2024 2:40 PM EDT Narrative 10/09/2024 6:45 PM EDT * [facility]* [address] [place] [address] Stress Echocardiogram Patient: Julien Gilbert Room: 8142 Height: 76in MR Number: [id number] : 1985 Weight: 262lb Account: [id number] Gender: M BP: 125 / 77 Study Date: 10/09/2024 Age: 39 BSA: 2.48m^2 Referring physician: Gerri Peterson Interpreting physician: Tonya Henriquez MD FELLOW Lisa Jha MD PERFORMING Tonya Henriquez MD ECOLOGICAL ECONOMIST [employer] ORDERING Gerri Peterson REFERRING Gerri Peterson Sharice N ADMITTING RussangleAngie Procedure:STRESS ECHO - PHARMACOLOGIC Order: Indications: Pre-Operative [...] was augmented by the addition of hand senior business consultant and leg lifts. The infusion was terminated [...] at baseline or with provocation, shows no cwqbe-lx-wrrk atrial level shunt. - Pulmonary arteries: Systolic [...] at baseline or with provocation, shows no pqulk-ah-cgwk atrial level shunt. Pulmonary artery: - Systolic [...] at baseline or with provocation, shows no kzchw-qk-kjlu atrial level shunt. Pericardium: - There is [...] peak heart rate and blood pressure was 09965iz Hg/min. Stress testing did not produce any [...] Reviewed and confirmed by Tonya Henriquez MD [id number] Procedure Note Tonya Henriquez MD - 10/09/2024 * [facility]* [address] [place] [address] Stress Echocardiogram Patient: Julien Gilbert Room: [facility] Height: 76in MR Number: [id number] : 1985 Weight: 262lb Account: [id number] Gender: M BP: 125 / 77 Study Date: 10/09/2024 Age: 39 BSA: 2.48m^2 Referring physician: Gerri Peterson Interpreting physician: Tonya Henriquez MD FELLOW iLsa Jha MD PERFORMING Tonya Henriquez MD ECOLOGICAL ECONOMIST [employer] ORDERING Gerri Peterson REFERRING Gerri Peterson Sharice N ADMITTING Angie Blanchard Procedure:STRESS ECHO - PHARMACOLOGIC Order: Indications: Pre-Operative Clearance (Z01.818). PMH: EtOH Use Disorder. Risk factors: Hypertension. Dyslipidemia. Study data: Height: 76in. 193cm. Weight: 262lb. 118.8kg. The previousstudy was not available, so comparison was made to the report of 07/15/2024. Study status: Routine. Procedure: [facility] A baseline ECG was recorded. Intravenous access [...] was augmented by the addition of hand senior business consultant and leg lifts. The infusion was terminated [...] at baseline or with provocation, shows no ayfsp-ps-pomf atrial level shunt. - Pulmonary arteries: Systolic [...] study at baseline or with provocation, showsno xwfwa-zw-cavw atrial level shunt. Pulmonary artery: - Systolic [...] at baseline or with provocation, shows no tazzg-ij-hpsp atrial level shunt. Pericardium: - There is [...] heart rate). The maximal predicted heart rate [id number]. The target heart rate was 152bpm. The target heart rate was achieved.The heart rate response to stress is normal. There is a normal resting blood pressure with an appropriate response to stress. The rate-pressureproduct for the peak heart rate and blood pressure was [id number] Hg/min. Stress testing did not produce any [...] Reviewed and confirmed by Tonya Henriquez MD [id number] us Gerri Peterson MD CV ECHO ORDERABLES Final Result * (ABNORMAL) Renal Function Panel w/EGFR, STAT (10/09/2024 1:05 PM EDT) Sodium 134 133 - 146 mmol/L 10/09/2024 2:10 PM EDT [facility] Potassium 3.7 3.5 - 5.3 mmol/L 10/09/2024 2:10 PM EDT [facility] Chloride 105 98 - 110 mmol/L 10/09/2024 2:10 PM EDT [facility] CO2 17(L) 21 - 33 mmol/L 10/09/2024 2:10 PM EDT [facility] Anion Gap 12 3 - 16 mmol/L 10/09/2024 2:10 PM EDT [facility] BUN 53(H) 7 - 25 mg/dL 10/09/2024 2:10 PM EDT [facility] Creatinine 2.89(H) 0.60 - 1.30 mg/dL 10/09/2024 2:10 PM EDT [facility] Glucose 108(H) 70 - 100 mg/dL 10/09/2024 2:10 PM EDT [facility] Calcium 9.3 8.6 - 10.3 mg/dL 10/09/2024 2:10 PM EDT [facility] Phosphorus 3.4 2.1 - 4.7 mg/dL 10/09/2024 2:10 PM EDT [facility] Albumin 3.6 3.5 - 5.7 g/dL 10/09/2024 2:10 PM EDT [facility] Osmolality, Calculated 293 278 - 305 mOsm/kg 10/09/2024 2:10 PM EDT [facility] EGFR 27 10/09/2024 2:10 PM EDT [facility] Comment:As of 2021, the [...] MD, PhD LAB BLOOD ORDERABLES Final Result [facility] [address] [place] [address], [facility] * (ABNORMAL) Renal Function Panel w/EGFR, STAT (10/09/2024 8:14 AM EDT) Sodium 134 133 - 146 mmol/L 10/09/2024 8:47 AM EDT [facility] Potassium 3.4(L) 3.5 - 5.3 mmol/L 10/09/2024 8:47 AM EDT [facility] Chloride 107 98 - 110 mmol/L 10/09/2024 8:47 AM EDT [facility] CO2 17(L) 21 - 33 mmol/L 10/09/2024 8:47 AM EDT [facility] Anion Gap 10 3 - 16 mmol/L 10/09/2024 8:47 AM EDT [facility] BUN 54(H) 7 - 25 mg/dL 10/09/2024 8:47 AM EDT [facility] Creatinine 3.04(H) 0.60 - 1.30 mg/dL 10/09/2024 8:47 AM EDT [facility] Glucose 124(H) 70 - 100 mg/dL 10/09/2024 8:47 AM EDT [facility] Calcium 9.0 8.6 - 10.3 mg/dL 10/09/2024 8:47 AM EDT [facility] Phosphorus 3.5 2.1 - 4.7 mg/dL 10/09/2024 8:47 AM EDT [facility] Albumin 3.4(L) 3.5 - 5.7 g/dL 10/09/2024 8:47 AM EDT [facility] Osmolality, Calculated 294 278 - 305 mOsm/kg 10/09/2024 8:47 AM EDT [facility] EGFR 26 10/09/2024 8:47 AM EDT [facility] Comment:As of 2021, the [...] MD LAB BLOOD ORDERABLES Final Resu lt [facility] [address] * Prepare RBC, leukoreduced, 1 Units (10/09/2024 6:16 AM EDT) Product Code [id number] [facility] Unit Number [id number] [facility] Dispense Status Presumed Transfused_PT [facility] Blood Expiration Date [id number] [facility] Coding System [id number] [facility] Blood Bank Product us Eileen Schroeder [...] MD, PhD LAB BLOOD ORDERABLES Final Result [facility] [address] * (ABNORMAL) Hepatic Function Panel (10/09/2024 4:59 AM EDT) Total Bilirubin 9.0(H) 0.0 - 1.5 mg/dL 10/09/2024 6:42 AM EDT [facility] Bilirubin, Direct 4.60(H) 0.00 - 0.40 mg/dL 10/09/2024 6:42 AM EDT [facility] AST 38 13 - 39 U/L 10/09/2024 6:42 AM EDT [facility] ALT 18 7 - 52 U/L 10/09/2024 6:42 AM EDT [facility] Alkaline Phosphatase 122 36 - 125 U/L 10/09/2024 6:42 AM EDT [facility] Total Protein 4.8(L) 6.4 - 8.9 g/dL 10/09/2024 6:42 AM EDT [facility] Albumin 3.4(L) 3.5 - 5.7 g/dL 10/09/2024 6:42 AM EDT [facility] Bilirubin, Indirect 4.40(H) 0.00 - 1.10 mg/dL 10/09/2024 6:42 AM EDT [facility] Plasma 10/09/2024 4:59 AM EDT 10/09/2024 5:57 AM EDT us Eileen Schroeder MD, PhD LAB BLOOD ORDERABLES Final Result [facility] [address] * Magnesium (10/09/2024 4:59 AM EDT) Magnesium 1.8 1.5 - 2.5 mg/dL 10/09/2024 6:42 AM EDT [facility] Plasma 10/09/2024 4:59 AM EDT 10/09/2024 5:57 AM EDT us Eileen Schroeder MD, PhD LAB BLOOD ORDERABLES Final Result Performing Organization Address [facility] Co de Phone Number [facility] [address] * (ABNORMAL) Renal Function Panel w/EGFR (10/09/2024 4:59 AM EDT) Sodium 134 133 - 146 mmol/L 10/09/2024 6:42 AM EDT [facility] Potassium 3.3(L) 3.5 - 5.3 mmol/L 10/09/2024 6:42 AM EDT [facility] Chloride 107 98 - 110 mmol/L 10/09/2024 6:42 AM EDT [facility] CO2 16(L) 21 - 33 mmol/L 10/09/2024 6:42 AM EDT [facility] Anion Gap 11 3 - 16 mmol/L 10/09/2024 6:42 AM EDT [facility] BUN 56(H) 7 - 25 mg/dL 10/09/2024 6:42 AM EDT [facility] Creatinine 2.98(H) 0.60 - 1.30 mg/dL 10/09/2024 6:42 AM EDT [facility] Glucose 112(H) 70 - 100 mg/dL 10/09/2024 6:42 AM EDT [facility] Calcium 9.0 8.6 - 10.3 mg/dL 10/09/2024 6:42 AM EDT [facility] Phosphorus 3.5 2.1 - 4.7 mg/dL 10/09/2024 6:42 AM EDT [facility] Albumin 3.4(L) 3.5 - 5.7 g/dL 10/09/2024 6:42 AM EDT [facility] Osmolality, Calculated 294 278 - 305 mOsm/kg 10/09/2024 6:42 AM EDT [facility] EGFR 26 10/09/2024 6:42 AM EDT [facility] Comment:As of 2021, the [...] MD, PhD LAB BLOOD ORDERABLES Final Result [facility] [address] * (ABNORMAL) CBC (10/09/2024 4:59 AM EDT) WBC 4.6 3.8 - 10.8 10E3/uL 10/09/2024 6:21 AM EDT [facility] RBC 2.17(L) 4.20 - 5.80 10E6/uL 10/09/2024 6:21 AM EDT [facility] Hemoglobin 8.0(L) 13.2 - 17.1 g/dL 10/09/2024 6:21 AM EDT [facility] Hematocrit 21.8(L) 38.5 - 50.0 % 10/09/2024 6:21 AM EDT [facility] MCV 100.5(H) 80.0 - 100.0 fL 10/09/2024 6:21 AM EDT [facility] MCH 36.7(H) 27.0 - 33.0 pg 10/09/2024 6:21 AM EDT [facility] MCHC 36.5(H) 32.0 - 36.0 g/dL 10/09/2024 6:21 AM EDT [facility] RDW 18.1(H) 11.0 - 15.0 % 10/09/2024 6:21 AM EDT [facility] Platelets 36(L) 140 - 400 10E3/uL 10/09/2024 6:21 AM EDT [facility] Comment:Specimen checked for clots. None detected. MPV 8.3 7.5 - 11.5 fL 10/09/2024 6:21 AM EDT [facility] Whole Blood 10/09/2024 4:59 AM EDT 10/09/2024 5:56 AM EDT us Eileen Schroeder MD, PhD LAB BLOOD ORDERABLES Final Result Performing Organization Address City/[facility]/ZIP Co de Phone Number [facility] [address] * Renal Tx Recipient (10/09/2024 4:59 AM EDT) Renal Transplant Recipient The request and specimen(s) for this test have been received and transported to the [facility] at [address] [place] [address]. The [facility] will report results directly to the client. 10/09/2024 7:26 AM EDT [facility] Blood 10/09/2024 4:59 AM EDT 10/09/2024 7:26 AM EDT us Aaron Gonzalez MD LAB BLOOD ORDERABLES Final Resu lt [facility] [address] * Vancomycin, random (10/09/2024 4:59 AM EDT) Vancomycin Random 11.0 ug/mL 10/09/2024 6:33 AM EDT [facility] Comment:Reference range not established for this test. Plasma 10/09/2024 4:59 AM EDT 10/09/2024 5:56 AM EDT Jodi Ortiz PharmD LAB BLOOD ORDERABLES Final Result [facility] [address] * (ABNORMAL) CBC (10/08/2024 5:52 PM EDT) WBC 5.6 3.8 - 10.8 10E3/uL 10/08/2024 6:52 PM EDT [facility] RBC 2.38(L) 4.20 - 5.80 10E6/uL 10/08/2024 6:52 PM EDT [facility] Hemoglobin 8.3(L) 13.2 - 17.1 g/dL 10/08/2024 6:52 PM EDT [facility] Hematocrit 24.6(L) 38.5 - 50.0 % 10/08/2024 6:52 PM EDT [facility] MCV 103.2(H) 80.0 - 100.0 fL 10/08/2024 6:52 PM EDT [facility] MCH 34.7(H) 27.0 - 33.0 pg 10/08/2024 6:52 PM EDT [facility] MCHC 33.6 32.0 - 36.0 g/dL 10/08/2024 6:52 PM EDT [facility] RDW 18.5(H) 11.0 - 15.0 % 10/08/2024 6:52 PM EDT [facility] Platelets 39(L) 140 - 400 10E3/uL 10/08/2024 6:52 PM EDT [facility] Comment:CNV MPV 8.1 7.5 - 11.5 fL 10/08/2024 6:52 PM EDT [facility] Whole Blood 10/08/2024 5:52 PM EDT 10/08/2024 6:45 PM EDT Eileen Schroeder MD, PhD LAB BLOOD ORDERABLES Final Result Performing Organization Address City/[facility]/ZIP Co de Phone Number [facility] [address] * Transfuse RBC Has consent been obtained? Yes; Transfusion Rate: Per dept routine (10/08/2024 1:17 PM EDT) Eileen Schroeder MD, PhD NURSING TREATMENT ORD ERABLES - BLOOD ADMIN Final Result Performing Organization Address City/[facility]/ZIP Co de Phone Number EXTERNAL * Transfuse RBC Has consent been obtained? Yes; Transfusion Rate: Per dept routine, 1 Units (10/08/2024 1:17 PM EDT) Eileen Schroeder MD, PhD NURSING TREATMENT ORD ERABLES - BLOOD ADMIN Final Result Performing Organization Address City/[facility]/ZIP Co de Phone Number EXTERNAL * (ABNORMAL) MMR(IgG) Panel (Measles, Mumps, Rubella) (10/08/2024 10:25 AM EDT) Mumps IgG Positive 10/08/2024 11:39 AM EDT [facility] MUMPS IGG NUM 99.00(H) 0.0 - 8.9 U/mL 10/08/2024 11:39 AM EDT [facility] Rubella IgG Scr Positive 10/08/2024 11:40 AM EDT [facility] RUB NUM 4.15(H) 0.00 - 0.89 INDEX 10/08/2024 11:40 AM EDT [facility] Rubeola Ab, IgG Positive 10/08/2024 11:39 AM EDT [facility] RUB IGG NUM 273.00(H) 0.00 - 13.40 U/mL 10/08/2024 11:39 AM EDT [facility] Serum 10/08/2024 10:2 5 AM EDT 10/08/2024 10:49 AM EDT Narrative [facility] - 10/08/2024 11:40 AM EDT Presence of detectable measles virus IgG antibodies. A positive result generally indicates exposure to measles virus or previous vaccination. Presence of detectable mumps virus IgG antibodies. A positive result generally indicates past exposure to mumps virus or previous vaccination. Sample is considered positive for IgG antibodies to rubella virus. Result [facility] Gerri Peterson MD LAB BLOOD ORDERABLES Final Resu lt Performing Organization Address [facility]/ZIP Co de Phone Number [facility] [address] [facility]. [address] * (ABNORMAL) Hemoglobin A1C (10/08/2024 10:25 AM EDT) Hemoglobin A1C 3.7(L) 4.0 - 5.6 % 10/09/2024 1:22 PM EDT [facility] Comment: Hemoglobin A1c Interpretation Guidelines: [...] ORDERABLES Final Resu lt Performing Organization Address [facility]/ZIP Co de Phone Number [facility] [address] [facility]. [address] * (ABNORMAL) Vitamin D 25 Hydroxy (10/08/2024 10:25 AM EDT) Vit D, 25-Hydroxy 7.1(L) 30.0 - 100.0 ng/mL 10/08/2024 11:36 AM EDT [facility] Comment: Vitamin D deficiency has been defined by the [place] [employer] (IOM) and an Endocrine Society [...] ORDERABLES Final Resu lt Performing Organization Address [facility] de Phone Number [facility] [address] [place] [address]. [address] * Iron Studies (Iron + TIBC) (10/08/2024 10:25 AM EDT) Iron 81 50 - 212 ug/dL 10/08/2024 11:23 AM EDT [facility] % Iron Saturation SEE COMMENT 15.0 - 55.0 % 10/08/2024 11:23 AM EDT [facility] Comment:Unable to calculate result because contributing result outside reportable range.. TIBC SEE COMMENT 261 - 462 ug/dL 10/08/2024 11:23 AM EDT [facility] Comment:Unable to calculate result because contributing result outside reportable range.. Serum 10/08/2024 10:2 5 AM EDT 10/08/2024 10:49 AM EDT Gerri Peterson MD LAB BLOOD ORDERABLES Final Resu lt Performing Organization Address [facility] Co de Phone Number [facility] [address] [facility] * (ABNORMAL) Ferritin (10/08/2024 10:25 AM EDT) Ferritin 706.9(H) 23.9 - 336.2 ng/mL 10/08/2024 11:35 AM EDT [facility] Serum 10/08/2024 10:2 5 AM EDT 10/08/2024 10:49 AM EDT Gerri Peterson MD LAB BLOOD ORDERABLES Final Resu lt [facility] [address] [place] [address]. [address] * QuantiFERON TB2 Ag (10/08/2024 10:25 AM EDT) QuantiFERON TB2 Ag Value 0.07 10/10/2024 10:41 AM EDT [facility] Plasma 10/08/2024 10:2 5 AM EDT 10/08/2024 11:05 AM EDT Gerri Peterson MD LAB BLOOD ORDERABLES Final Resu lt [facility] [address] [place] [address]. [address] * QuantiFERON TB1 Ag (10/08/2024 10:25 AM EDT) QuantiFERON TB1 Ag Value 0.06 10/10/2024 10:41 AM EDT [facility] Plasma 10/08/2024 10:2 5 AM EDT 10/08/2024 11:05 AM EDT Gerri Peterson MD LAB BLOOD ORDERABLES Final Resu lt [facility] [address] [place] [address]. [address] * QuantiFERON Nil (10/08/2024 10:25 AM EDT) QuantiFERON Nil 0.06 10:41 AM EDT [facility] Plasma 10/08/2024 10:2 5 AM EDT 10/08/2024 11:05 AM EDT Gerri Peterson MD LAB BLOOD ORDERABLES Final Resu lt Performing Organization Address [facility] Co de Phone Number [facility] [address] [facility] * QuantiFERON Mitogen (10/08/2024 10:25 AM EDT) QuantiFERON Interpretation Negative Negative 10/10/2024 10:41 AM EDT [facility] Comment:Negative result geovanny cates M. tuberculosis infection is NOT likely. Negative results do not preclude tuberculosis infection (especially in immunosuppressed patients). Negative results have a TB antigen minus Nil value less than 0.35 IU/mL. In cases with high suspicion of disease, retesting or additional testing with medical evaluation may be useful. QuantiFERON Mitogen 4.87 10/10 10:41 AM EDT [facility] Plasma 10/08/2024 10:2 5 AM EDT 10/08/2024 11:05 AM EDT Narrative [facility] - 10/10/2024 10:41 AM EDT [...] MD LAB BLOOD ORDERABLES Final Resu lt [facility] [address] [facility] * Reticulocyte Count, Auto (10/08/2024 7:41 AM EDT) Pathologist [facility] Retic Ct Pct 1.35 0.50 - 2.00 % 10/08/2024 9:12 AM EDT [facility] Retic Ct Abs 26,190 25,000 - 90,000 /uL 10/08/2024 9:14 AM EDT [facility] Immature Retic Fract 0.37 0.09 - 0.56 10/08/2024 9:12 AM EDT [facility] Whole Blood 10/08/2024 7:41 AM EDT 10/08/2024 8:51 AM EDT us Angie Blanchard MD LAB BLOOD ORDERABLES Final Res ult [facility] [address] [facility] * (ABNORMAL) Haptoglobin (10/08/2024 7:41 AM EDT) Haptoglobin <30(L) 44 - 215 mg/dL 10/08/2024 8:53 AM EDT [facility] Serum 10/08/2024 7:41 AM EDT 10/08/2024 7:51 AM EDT us Eileen Schroeder MD, PhD LAB BLOOD ORDERABLES Final Result [facility] [address] [place] [address]. [address] * (ABNORMAL) CBC - Post Transfusion (10/08/2024 7:41 AM EDT) WBC 3.7(L) 3.8 - 10.8 10E3/uL 10/08/2024 8:34 AM EDT [facility] RBC 1.94(L) 4.20 - 5.80 10E6/uL 10/08/2024 8:34 AM EDT [facility] Hemoglobin 7.1(L) 13.2 - 17.1 g/dL 10/08/2024 8:34 AM EDT [facility] Hematocrit 20.0(L) 38.5 - 50.0 % 10/08/2024 8:34 AM EDT [facility] MCV 103.1(H) 80.0 - 100.0 fL 10/08/2024 8:34 AM EDT [facility] MCH 36.5(H) 27.0 - 33.0 pg 10/08/2024 8:34 AM EDT [facility] MCHC 35.4 32.0 - 36.0 g/dL 10/08/2024 8:34 AM EDT [facility] RDW 17.2(H) 11.0 - 15.0 % 10/08/2024 8:34 AM EDT [facility] Platelets 37(L) 140 - 400 10E3/uL 10/08/2024 8:34 AM EDT [facility] Comment: Specimen checked for clots. None detected. Slide Reviewed for PLT Clumps. None Seen. _Platelet Morphology Normal _Platelets Appear Decreased MPV 8.7 7.5 - 11.5 fL 10/08/2024 8:34 AM EDT [facility] Whole Blood 10/08/2024 7:41 AM EDT 10/08/2024 7:52 AM EDT [facility] - 10/08/2024 8:34 AM EDT Post-transfusion us Eileen Schroeder MD, PhD LAB BLOOD ORDERABLES Final Result Performing Organization Address [facility] Co de Phone Number [facility] [address] * Antibody Screen (10/08/2024 7:41 AM EDT) [facility] Signature Antibody Screen Negative 10/08/2024 8:26 AM EDT [facility] Blood 10/08/2024 7:41 AM EDT 10/08/2024 7:57 AM EDT [facility] - 10/08/2024 8:32 AM EDT Testing performed by [facility] Transfusion Service us Eileen Schroeder MD, PhD BLOOD BANK TEST ORDER PAL Final Result Performing Organization Address City/[facility]/ZIP Co de Phone Number [facility] [address] * ABO/Rh (10/08/2024 7:41 AM EDT) ABO Grouping O 10/08/2024 8:14 AM EDT [facility] Rh Type Positive 10/08/2024 8:14 AM EDT [facility] Blood 10/08/2024 7:41 AM EDT 10/08/2024 7:57 AM EDT us Eileen Schroeder MD, PhD BLOOD BANK TEST ORDER PAL Final Result Performing Organization Address City/[facility]/ZIP Co de Phone Number [facility] [address] * (ABNORMAL) Lactate dehydrogenase (10/08/2024 5:36 AM EDT) LD 102(L) 110 - 270 U/L 10/08/2024 8:20 AM EDT [facility] Plasma 10/08/2024 5:36 AM EDT 10/08/2024 7:58 AM EDT us Angie Blanchard MD LAB BLOOD ORDERABLES Final Res ult Performing Organization Address [facility]/ZIP Co de Phone Number [facility] [address] [place] [address] [address] * (ABNORMAL) Protime-INR (10/08/2024 5:36 AM EDT) Protime 26.9(H) 12.1 - 15.1 seconds 10/08/2024 6:11 AM EDT [facility] INR 2.4(H) 0.9 - 1.1 10/08/2024 6:11 AM EDT [facility] Comment: RECOMMENDED THERAPEUTIC RANGES USING INR : Stable oral anticoagulant therapy: 2.0 - 3.0 Mechanical prosthetic heart valve: 2.5 - 3.5 Recurrent acute myocardial infarction: 2.5 - 3.5 Plasma 10/08/2024 5:36 AM EDT 10/08/2024 5:52 AM EDT us Eileen Schroeder MD, PhD LAB BLOOD ORDERABLES Final Result Performing Organization Address City/[facility]/ZIP Co de Phone Number [facility] [address] * (ABNORMAL) Hepatic Function Panel (10/08/2024 5:36 AM EDT) Total Bilirubin 7.7(H) 0.0 - 1.5 mg/dL 10/08/2024 6:25 AM EDT [facility] Bilirubin, Direct 4.28(H) 0.00 - 0.40 mg/dL 10/08/2024 6:25 AM EDT [facility] AST 34 13 - 39 U/L 10/08/2024 6:25 AM EDT [facility] ALT 16 7 - 52 U/L 10/08/2024 6:25 AM EDT [facility] Alkaline Phosphatase 103 36 - 125 U/L 10/08/2024 6:25 AM EDT [facility] Total Protein 4.7(L) 6.4 - 8.9 g/dL 10/08/2024 6:25 AM EDT [facility] Albumin 3.5 3.5 - 5.7 g/dL 10/08/2024 6:25 AM EDT [facility] Bilirubin, Indirect 3.42(H) 0.00 - 1.10 mg/dL 10/08/2024 6:25 AM EDT [facility] Plasma 10/08/2024 5:36 AM EDT 10/08/2024 5:52 AM EDT us Eileen Schroeder MD, PhD LAB BLOOD ORDERABLES Final Result [facility] [address] [facility]. [address] * Magnesium (10/08/2024 5:36 AM EDT) Magnesium 1.9 1.5 - 2.5 mg/dL 10/08/2024 6:25 AM EDT [facility] Plasma 10/08/2024 5:36 AM EDT 10/08/2024 5:52 AM EDT us Eileen Schroeder MD, PhD LAB BLOOD ORDERABLES Final Result [facility] [address] [place] [address], [facility] * (ABNORMAL) Renal Function Panel w/EGFR (10/08/2024 5:36 AM EDT) Sodium 135 133 - 146 mmol/L 10/08/2024 6:25 AM EDT [facility] Potassium 3.2(L) 3.5 - 5.3 mmol/L 10/08/2024 6:25 AM EDT [facility] Chloride 106 98 - 110 mmol/L 10/08/2024 6:25 AM EDT [facility] CO2 17(L) 21 - 33 mmol/L 10/08/2024 6:25 AM EDT [facility] Anion Gap 12 3 - 16 mmol/L 10/08/2024 6:25 AM EDT [facility] BUN 61(H) 7 - 25 mg/dL 10/08/2024 6:25 AM EDT [facility] Creatinine 3.10(H) 0.60 - 1.30 mg/dL 10/08/2024 6:25 AM EDT [facility] Glucose 106(H) 70 - 100 mg/dL 10/08/2024 6:25 AM EDT [facility] Calcium 9.0 8.6 - 10.3 mg/dL 10/08/2024 6:25 AM EDT [facility] Phosphorus 4.0 2.1 - 4.7 mg/dL 10/08/2024 6:25 AM EDT [facility] Albumin 3.5 3.5 - 5.7 g/dL 10/08/2024 6:25 AM EDT [facility] Osmolality, Calculated 298 278 - 305 mOsm/kg 10/08/2024 6:25 AM EDT [facility] EGFR 25 10/08/2024 6:25 AM EDT [facility] Comment:As of 2021, the [...] MD, PhD LAB BLOOD ORDERABLES Final Result [facility] [address] * (ABNORMAL) CBC (10/08/2024 5:36 AM EDT) WBC 3.2(L) 3.8 - 10.8 10E3/uL 10/08/2024 6:41 AM EDT [facility] RBC 1.86(L) 4.20 - 5.80 10E6/uL 10/08/2024 6:41 AM EDT [facility] Hemoglobin 6.9(L) 13.2 - 17.1 g/dL 10/08/2024 6:41 AM EDT [facility] Hematocrit 18.9(L) 38.5 - 50.0 % 10/08/2024 6:41 AM EDT [facility] MCV 101.6(H) 80.0 - 100.0 fL 10/08/2024 6:41 AM EDT [facility] MCH 36.9(H) 27.0 - 33.0 pg 10/08/2024 6:41 AM EDT [facility] MCHC 36.3(H) 32.0 - 36.0 g/dL 10/08/2024 6:41 AM EDT [facility] RDW 17.0(H) 11.0 - 15.0 % 10/08/2024 6:41 AM EDT [facility] Platelets 34(L) 140 - 400 10E3/uL 10/08/2024 6:41 AM EDT [facility] Comment: Specimen checked for clots. None detected. Slide Reviewed for PLT Clumps. None Seen. Platelet Estimate Decreased 10/08/2024 6:41 AM EDT [facility] MPV 8.4 7.5 - 11.5 fL 10/08/2024 6:41 AM EDT [facility] Whole Blood 10/08/2024 5:36 AM EDT 10/08/2024 5:53 AM EDT Narrative [facility] - 10/08/2024 6:41 AM EDT Peripheral blood smear was scanned per review criteria approved by the laboratory medical professionals. Eileen Schroeder MD, PhD LAB BLOOD ORDERABLES Final Result Performing Organization Address City/[facility]/ZIP Co de Phone Number [facility] [address] [facility] * Vancomycin, random (10/08/2024 5:36 AM EDT) Vancomycin Random 16.0 ug/mL 10/08/2024 6:20 AM EDT [facility] Comment:Reference range not established for this test. Plasma 10/08/2024 5:36 AM EDT 10/08/2024 5:52 AM EDT us Jodi FreireD LAB BLOOD ORDERABLES Final Result Performing Organization Address City/[facility]/ZIP Co de Phone Number [facility] [address] [facility] * Urine Drug Confirmation (10/07/2024 10:50 PM EDT) BARBITURATES NOT PRESENT 10/09/2024 1:33 PM EDT [facility] BENZODIAZEPINES PRESENT 1:33 PM EDT [facility] Nordiazepam 3 ng/mL 10/09/2024 1:33 PM EDT [facility] Temazepam 6 ng/mL 10/09/2024 1:33 PM EDT [facility] CANNABINOIDS NOT PRESENT 10/09/2024 1:33 PM EDT [facility] BUSINESS STRATEGIST STIMULANTS NOT PRESENT 1:33 PM EDT [facility] OPIOID ANALGESICS PRESENT 025 1:33 PM EDT [facility] Oxycodone 300 ng/mL 10/09/2024 1:33 PM EDT [facility] Oxymorphone 32 ng/mL 10/09/2024 1:33 PM EDT [facility] Tramadol >1000 ng/mL 10/09/2024 1:33 PM EDT [facility] OPIOID ANTAGONISTS NOT PRESENT 10/09 1:33 PM EDT [facility] SEDATIVES/MUSCLE RELAXANTS NOT PRESENT 10/09/2024 1:33 PM EDT [facility] TRICYCLIC ANTIDEPRESSANTS NOT PRESENT 10/09/2024 1:33 PM EDT [facility] Urine 10/07/2024 10:5 0 PM EDT 10/08/2024 3:00 AM EDT Gerri Peterson MD URINE ORDERABLES Final Result [facility] [address] [facility] * Giardia Cryptosporidium Antigens (10/07/2024 10:50 PM EDT) Cryptosporidium Ag Negative Negative 2024 7:59 AM EDT [facility] Giardia Ag Negative Negative 10/08/2024 7:59 AM EDT [facility] Comment: Detection of Giardia and Cryptosporidium antigen is more sensitive and specific than microscopy. Because antigens are shed continuously, repeat testing is rarely warranted. Feces 10/07/2024 10:5 0 PM EDT 10/08/2024 1:53 AM EDT Comment:F Bisi Hernandez DO MICROBIOLOGY - GENERAL ORDERABLE S Final Result [facility] [address] * (ABNORMAL) Urine Drug Screen Reflex to Confirmation (10/07/2024 10:50 PM EDT) Amphetamine, 500 ng/mL Cutoff Negative Negative 10/08/2024 3:00 AM EDT [facility] Barbiturates UR, 300 ng/mL Cutoff Negative Negative 10/08/2024 3:00 AM EDT [facility] Buprenorphine, 5 ng/mL Cutoff Negative Negative 10/08/2024 3:00 AM EDT [facility] Benzodiazepines UR, 300 ng/mL Cutoff Negative Negative 10/08/2024 3:00 AM EDT [facility] Cocaine UR, 300 ng/mL Cutoff Negative Negative 10/08/2024 3:00 AM EDT [facility] Methadone, UR, 300 ng/mL Cutoff Negative Negative 10/08/2024 3:00 AM EDT [facility] Opiates UR, 300 ng/mL Cutoff Negative Negative 10/08/2024 3:00 AM EDT [facility] Oxycodone, 100 ng/mL Cutoff Presumptive Positive(A) Negative 10/08/2024 3:00 AM EDT [facility] Tricyclic Antidepressants, 300 ng/mL Cutoff Negative Negative 10/08/2024 3:00 AM EDT [facility] Comment:This test has been d eveloped and its performance characteristics determined by [facility] which is certified under the [...] Cutoff Negative Negative 10/08/2024 3:00 AM EDT [facility] Comment:This is a screening method only and may be associated with false positive and/or false negative results. Results are not definitive without additional confirmatory testing by mass spectrometry. Fentanyl, 2 ng/mL Cutoff Negative Negative 10/08/2024 3:00 AM EDT [facility] Comment:This test has been d eveloped and its performance characteristics determined by [facility] which is certified under the [...] Gerri Peterson MD URINE ORDERABLES Final Result [facility] [address] [facility] [place] [address], [facility] * Comprehensive Drug Screen (10/07/2024 10:50 PM EDT) Creatinine, Ur CANCELED mg/dL 10/08/2024 7:09 AM EDT [facility] Comment:The released value 8 7.30 was canceled by YAQUELIN on 10/08/2024 07:09 BARBITURATES CANCELED [facility] Butalbital [facility] Phenobarbital [facility] Secobarbital CANCELED [facility] BENZODIAZEPINES CANCELED [facility] Alprazolam [facility] Clonazepam [facility] Diazepam [facility] Alpha-Hydroxyalprazo mcknight [facility] Lorazepam [facility] Midazolam [facility] Nordiazepam [facility] Oxazepam [facility] Temazepam [facility] CANNABINOIDS [facility] THC-COOH [facility] BUSINESS STRATEGIST STIMULANTS [facility] Cocaine Metabolite(benzoylec gonine) [facility] Amphetamine [facility] Methamphetamine CANCELED [facility] MDA [facility] MDEA [facility] Phencyclindine (PCP) [facility]ED [facility] OPIOID ANALGESICS [facility] Heroin Metabolite(6-RAMONA) [facility]ED [facility] Codeine [facility] Morphine [facility] Hydrocodone [facility] Hydromorphone [facility] Oxycodone [facility] Oxymorphone [facility] Meperidine [facility]ELED [facility] Normeperidine [facility] Methadone [facility]CELED [facility] Methadone Metabolite (EDDP) CANCELED [facility] Tramadol CANCELED [facility] Fentanyl [facility] Norfentanyl [facility] Sufentanil [facility] OPIOID ANTAGONISTS CANCELED [facility] Buprenorphine CANCELED [facility] Norbuprenorphine CANCELED [facility] Naltrexone CANCELED [facility] Naloxone CANCELED [facility] SEDATIVES/MUSCLE RELAXANTS CANCELED [facility] Carisoprodol CANCELED [facility] Meprobamate [facility] TRICYCLIC ANTIDEPRESSANTS CANCELED [facility] Amitriptyline [facility] Clomipramine [facility] Desipramine [facility] Doxepin [facility] Imipramine CANCELED [facility] Nortriptyline CANCELED [facility] Urine Creatinine CANCELED mg/dL [facility] Nitrite CANCELED [facility] Glutaraldehyde CANCELED [facility] pH CANCELED 10/08/2024 7:09 AM EDT [facility] Comment:The released value 5 .6 was canceled by YAQUELIN on 10/08/2024 07:09 Specific [place] CANCELED 10/09/19 7:09 AM EDT [facility] Comment:The released value 1 .009 was canceled by MABLEE on 10/08/2024 07:09 Bleach CANCELED [facility] Pyridinium Chlorochromate CANCELED [facility] Urine 10/07/2024 10:5 0 PM EDT 10/08/2024 2:07 AM EDT Narrative HEALTH LAB - 10/08/2024 7:09 AM EDT See accn [id number] us Gerri Peterson MD URINE ORDERABLES Edited Result - Final HEALTH LAB [address] * Ova and Parasite Comprehensive w/ Giardia/Crypto (10/07/2024 10:50 PM EDT) Pathologist [facility] O & P Method: Concentration and Trichrome Stain [facility] Results No Amoeba, Ova, Or Parasites Seen. -- O and P examination of additional specimens is recommended only for symptomatic patients, immunosuppressed patients or those with an appropriate travel history. [facility] Feces FECES / Unknown 10/07/2024 1 0:50 PM EDT 10/08/2024 1:53 AM EDT Comment:F Bisi Hernandez DO MICROBIOLOGY - GENERAL ORDERABLE S Final Result [facility] [address] [facility] * Enteric Pathogen Panel (10/07/2024 10:50 PM EDT) Pathologist [facility] Campylobacter Group (C. ecoli, C. jejuni, C. trino) Not Detected Not Detected 10/08/2024 4:40 AM EDT [facility] Salmonella species Not Detected Not Detected 10/08/2024 4:40 AM EDT [facility] Shigella species Not Detected Not Detected 10/08/2024 4:40 AM EDT [facility] Vibrio Group (Vibrio cholerae, Vibrio parahaemolyticus) Not Detected Not Detected 10/08/2024 4:40 AM EDT [facility] Yersinia enterocolitica Not Detected Not Detected 10/08/2024 4:40 AM EDT [facility] Shiga toxin 1 Not Detected Not Detected 10/08/2024 4:40 AM EDT [facility] Shiga toxin 2 Not Detected Not Detected 10/08/2024 4:40 AM EDT [facility] Norovirus Not Detected Not Detected 10/08/2024 4:40 AM EDT [facility] Rotavirus Not Detected Not Detected 10/08/2024 4:40 AM EDT [facility] Comment: The Enteric Pathogen Panel [...] ORDERABLE S Final Result Performing Organization Address [facility] Co de Phone Number [facility] [address] [facility] * Hepatitis C Antibody (10/07/2024 6:38 PM EDT) HCV Ab Nonreactive Nonreactive 10/07/2024 7:56 PM EDT [facility] Comment:Health Department no tified in accordance with reportable infectious disease guidelines. Serum 10/07/2024 6:38 PM EDT 10/07/2024 6:52 PM EDT Narrative [facility] - 10/07/2024 7:56 PM EDT Antibodies to HCV not detected; does not exclude the possibility of exposure to HCV. Gerri Peterson MD LAB BLOOD ORDERABLES Final Resu lt Performing Organization Address [facility]/ZIP Co de Phone Number [facility] [address] [facility] * Hepatitis B Surface Antibody, Quantitati (10/07/2024 6:38 PM EDT) Hep B S Ab Nonreactive Nonreactive 10/07/2024 8:00 PM EDT [facility] HBSAB NUMBER 7.88 0.00 - 7.99 mIU/mL 10/07/2024 8:00 PM EDT [facility] Serum 10/07/2024 6:38 PM EDT 10/07/2024 6:52 PM EDT [facility]arrative [facility] - 10/07/2024 8:00 PM EDT Individual is considered not immune to HBV infection. Result [facility] Gerri Peterson MD LAB BLOOD ORDERABLES Final Resu lt Performing Organization Address [facility] Co de Phone Number [facility] [address] * Hepatitis B surface antigen (10/07/2024 6:38 PM EDT) Hep B Surface Ag Nonreactive Nonreactive 10/07/2024 7:51 PM EDT [facility] Comment:Health Department no tified in accordance with reportable infectious disease guidelines. Serum 10/07/2024 6:38 PM EDT 10/07/2024 6:52 PM EDT [facility] - 10/07/2024 7:51 PM EDT Specimen is considered negative for HBsAg. Gerri Peterson MD LAB BLOOD ORDERABLES Final Resu lt Performing Organization Address [facility] Co de Phone Number [facility] [address] [facility] * Hepatitis A Antibody Total (10/07/2024 6:38 PM EDT) Anti-HAV Total (IgG + IgM) Nonreactive 10/07/2024 7:53 PM EDT [facility] Serum 10/07/2024 6:38 PM EDT 10/07/2024 6:52 PM EDT [facility] - 10/07/2024 7:53 PM EDT HAV antibodies not detected Result [facility] Gerri Peterson MD LAB BLOOD ORDERABLES Final Resu lt Performing Organization Address City/[facility] Co de Phone Number [facility] [address] [facility] * Hepatitis A IgM (10/07/2024 6:38 PM EDT) Hep A IgM Nonreactive Nonreactive 10/07/2024 7:46 PM EDT [facility] Serum 10/07/2024 6:38 PM EDT 10/07/2024 6:52 PM EDT Narrative [facility] - 10/07/2024 7:46 PM EDT IgM anti-HAV not detected. Does not exclude the possibility of exposure to or infection with HAV. Levels of IgM anti-HAV may be below the cut-off in early infection. us Gerri Peterson MD LAB BLOOD ORDERABLES Final Resu lt [facility] [address] [facility] [place] [address], [facility] * (ABNORMAL) Lipid Profile (10/07/2024 6:37 PM EDT) Non-HDL Cholesterol, Calculated See Note 0 - 129 mg/dL 10/07/2024 7:42 PM EDT [facility] Comment: Desirable: < 130 mg/dL Above Desirable: 130-159 mg/dL Borderline High: 160-189 mg/dL High: 190-219 mg/dL Very High: > 219 mg/dL Unable to calculate result either because contributing result(s) are outside of reportable range or are not available. Cholesterol, Total <25 0 - 200 mg/dL 10/07/2024 7:42 PM EDT [facility] Triglycerides 30 10 - 149 mg/dL 10/07/2024 7:42 PM EDT [facility] HDL 4(L) 60 - 92 mg/dL 10/07/2024 7:42 PM EDT [facility] Comment: LIPID PROFILE INTERPRETATION CHOLESTEROL,TOTAL(mg/dL) [...] Cholesterol See Note mg/dL 7:42 PM EDT [facility] Comment:Unable to calculate result either because contributing result(s) are outside of reportable range or are not available. Plasma 10/07/2024 6:37 PM EDT 10/07/2024 7:06 PM EDT Narrative [facility]ALTH LAB - 10/07/2024 7:42 PM EDT LDL cholesterol calculated using the Friedewald equation. us Gerri Peterson MD LAB BLOOD ORDERABLES Final Resu lt [facility] [address] [id number], [facility] * (ABNORMAL) Alpha 1 Antitrypsin AAT Quant & Mutation (10/07/2024 6:37 PM EDT) A-1 Antitrypsin 99(L) 101 - 187 mg/dL 10/09/2024 4:28 AM EDT [facility] A-1 Antitrypsin Pheno Comment 10/10/2024 4:05 PM EDT [facility] Comment: A1A Phenotype is consistent with a heterozygous phenotype consisting of one M (normal) allele and one allele that cannot be identified at this time. The unknown allele is not consistent with Z (deficient), S (deficient), or F (deficient). MM Phenotype is considered to be normal , producing normal serum levels of qhrhe-5-ssfkfrdy inhibitor and not associated with clinical disease. [...] PM EDT 10/10/2024 4:08 PM EDT Narrative [facility] - 10/10/2024 4:08 PM EDT PERFORMED AT: [facility] [address] [id number] ENGRAVER JEWELRY: Bassam Khalil, PhD PHONE: [phone] PERFORMED AT: [facility] [address] [id number] ENGRAVER JEWELRY: Mandy Abdul MD PHONE: [phone] Gerri Peterson MD LAB BLOOD ORDERABLES Final Resu lt Performing Organization Address City/[facility]/ZIP Co de Phone Number [facility] [address] [place] [address] * (ABNORMAL) CMV IgG Antibody (10/07/2024 6:37 PM EDT) CMV IgG Positive(A ) Negative 10/07/2024 8:26 PM EDT [facility] CMV IGG NUM 8.40(H) 0.00 - 0.59 U/mL 10/07/2024 8:26 PM EDT [facility] Serum 10/07/2024 6:37 PM EDT 10/07/2024 6:50 PM EDT Gerri Peterson MD LAB BLOOD ORDERABLES Final Resu lt [facility] [address] * HIV-1 and HIV-2 Antibodies w Reflex (10/07/2024 6:37 PM EDT) HIV 1+2 AB/AGN Nonreactive Nonreactive 10/07/2024 7:54 PM EDT [facility] Serum 10/07/2024 6:37 PM EDT 10/07/2024 7:06 PM EDT Narrative [facility] - 10/07/2024 7:54 PM EDT \HIVRNR Gerri Peterson MD LAB BLOOD ORDERABLES Final Resu lt [facility] [address] * TSH (Thyroid Stimulating Hormone) (10/07/2024 6:37 PM EDT) Pathologist [facility] TSH 0.81 0.45 - 4.12 uIU/mL 10/07/2024 8:17 PM EDT [facility] Serum 10/07/2024 6:37 PM EDT 10/07/2024 6:50 PM EDT Gerri Peterson MD LAB BLOOD ORDERABLES Final Resu lt Performing Organization Address [facility] Co de Phone Number [facility] [address] * Katie-Watkins virus early antigen antibody, IgG (10/07/2024 6:37 PM EDT) Pathologist [facility] EBV Early Antigen Ab, IgG <9.0 0.0 - 8.9 U/mL 10/09/2024 2:16 PM EDT [facility] Comment: Negative < 9.0 Equivocal 9.0 - 10.9 Positive >10.9 Serum Frozen 10/07/2024 6:37 PM EDT 10/09/2024 3:07 PM EDT Narrative [facility] - 10/09/2024 3:07 PM EDT PERFORMED AT: [address] [id number] ENGRAVER JEWELRY: Bassam Khalil, PhD PHONE: [phone] Gerri Peterson MD LAB BLOOD ORDERABLES Final Resu lt [facility] [address] [facility] * (ABNORMAL) Varicella zoster antibody, IgG (10/07/2024 6:37 PM EDT) Varicella IgG Positive( A) Negative S/CO 10/07/2024 8:34 PM EDT [facility] Comment:Result indicates the presence of detectable VZV IgG antibodies. A positive result is generally indicative of exposure to the pathogen or administration of specific immunoglobulins, but it is no indication of active infection or stage of disease. This test is not approved for determining vaccine-induced immunity to varicella zoster virus. VZV NUM 6.76(H) 0.00 - 0.99 S/CO 10/07/2024 8:34 PM EDT [facility] Serum 10/07/2024 6:37 PM EDT 10/07/2024 6:50 PM EDT Gerri Peterson MD LAB BLOOD ORDERABLES Final Resu lt Performing Organization Address City/[facility] Co de Phone Number [facility] [address] [facility] * Toxoplasma gondii antibody, IgG (10/07/2024 6:37 PM EDT) Pathologist [facility] Toxoplasma Gondii IgG <3.0 0.0 - 7.1 IU/mL 10/09/2024 7:53 AM EDT [facility] Comment: Negative <7.2 Equivocal 7.2 - 8.7 Positive >8.7 Serum 10/07/2024 6:37 PM EDT 10/09/2024 8:07 AM EDT Narrative [facility] - 10/09/2024 8:07 AM EDT PERFORMED AT: [address] [id number] ENGRAVER JEWELRY: Bassam Khalil, PhD PHONE: [phone] Gerri Peterson MD LAB BLOOD ORDERABLES Final Resu lt Performing Organization Address City/[facility] Co de Phone Number [address] * Syphilis Screening (Trepia) (10/07/2024 6:37 PM EDT) Treponema Pallidum Negative Negative 10/07/2024 8:27 PM EDT [facility] Comment: No serological evidence of infection with Treponema pallidum (incubating or early primary syphilis cannot be excluded). Serum 10/07/2024 6:37 PM EDT 10/07/2024 6:50 PM EDT Gerri Peterson MD LAB BLOOD ORDERABLES Final Resu lt Performing Organization Address City/[facility]/ZIP Co de Phone Number [facility] [address] [facility] * Strongyloides Ab (10/07/2024 6:37 PM EDT) Strongyloides Ab Negative Negative 10/11/19 11:51 AM EDT [facility] Serum 10/07/2024 6:37 PM EDT 10/10/2024 12:07 PM EDT Narrative [facility] - 10/10/2024 12:07 PM EDT PERFORMED AT: [address] [id number] ENGRAVER JEWELRY: Mandy Abdul MD PHONE: [phone] Gerri Peterson MD LAB BLOOD ORDERABLES Final Resu lt [facility] [address] [facility] * Phosphatidylethanol Confirmation, B (10/07/2024 6:37 PM EDT) PETH 16:0/18.1 (POPETH) <10 Cutoff: 10 ng/mL 10/10/2024 10:42 AM EDT [facility] Comment: Phosphatidylethanol (PEth) homologues result [...] Cutoff: 10 ng/mL 10/10/2024 10:42 AM EDT [facility] Comment: PEth 16:0/18:2 (PLPEth) Reference ranges are not well established PEth Interpretation Negative. 10/10 10:42 AM EDT [facility] Comment: ADDITIONAL INFORMATION This report is intended for use in clinical monitoring and management of patients. It is not intended for use in employment-related testing. This test was developed and its performance characteristics determined by [facility] in a manner consistent with CLIA requirements. This test has not been cleared or approved by the U.S. Food and Drug Administration. Test Performed by: [facility] [place] [address] Messenger Copy: Kathy Ortiz Ph.D.; CLIA# [id number] Whole Blood 10/07/2024 6:37 PM EDT 10/10/2024 10:42 AM EDT us Gerri Peterson MD LAB BLOOD ORDERABLES Final Resu lt [facility] [address] [place] [address], [facility] * (ABNORMAL) MMR(IgG) Panel (Measles, Mumps, Rubella) (10/07/2024 6:37 PM EDT) Mumps IgG Positive 10/07/2024 8:26 PM EDT [facility] MUMPS IGG NUM 77.80(H) 0.0 - 8.9 U/mL 10/07/2024 8:26 PM EDT [facility] Rubella IgG Scr Positive 10/07/2024 8:28 PM EDT [facility] RUB NUM 3.04(H) 0.00 - 0.89 INDEX 10/07/2024 8:28 PM EDT [facility] Rubeola Ab, IgG Positive 10/07/2024 8:26 PM EDT [facility] RUB IGG NUM 192.00(H) 0.00 - 13.40 U/mL 10/07/2024 8:26 PM EDT [facility] Serum 10/07/2024 6:37 PM EDT 10/07/2024 6:50 PM EDT Narrative [facility] - 10/07/2024 8:28 PM EDT [...] ORDERABLES Final Resu lt Performing Organization Address [facility]/ZIP Co de Phone Number [facility] [address] * IgA (10/07/2024 6:37 PM EDT) Pathologist [facility] IgA 227.0 70.0 - 400.0 mg/dL 10/08/2024 11:07 AM EDT [facility] Comment:Please interpret the se findings in conjunction with clinical findings, protein electrophoresis, and immunotyping/immunofixation results. Serum 10/07/2024 6:37 PM EDT 10/07/2024 6:50 PM EDT Gerri Peterson MD LAB BLOOD ORDERABLES Final Resu lt Performing Organization Address City/[facility]/ZIP Co de Phone Number [facility] [address] * Ethanol, Serum (10/07/2024 6:37 PM EDT) Pathologist [facility] Ethanol <10 0 - 10 mg/dL 10/07/2024 8:36 PM EDT [facility] Serum 10/07/2024 6:37 PM EDT 10/07/2024 6:50 PM EDT Gerri Peterson MD LAB BLOOD ORDERABLES Final Resu lt [facility] [address] [facility] * ABO/Rh - Second (10/07/2024 6:37 PM EDT) ABO Grouping O 10/07/2024 7:16 PM EDT [facility] Rh Type Positive 10/07/2024 7:16 PM EDT [facility] Blood 10/07/2024 6:37 PM EDT 10/07/2024 6:56 PM EDT Narrative [facility] - 10/07/2024 7:18 PM EDT This is not a duplicate order. It is required that ABO be drawn twice for LIVER TRANSPLANT Result [facility] Gerri Peterson MD BLOOD BANK TEST ORDERABLES Denisse l Result Performing Organization Address [facility] Co de Phone Number [facility] [address] [facility] * ABO/Rh- Initial (10/07/2024 6:37 PM EDT) ABO Grouping O 10/07/2024 7:59 PM EDT [facility] Rh Type Positive 10/07/2024 7:59 PM EDT [facility] Blood 10/07/2024 6:37 PM EDT 10/07/2024 7:25 PM EDT Gerri Peterson MD BLOOD BANK TEST ORDERABLES Denisse l Result [facility] [address] [facility]. [address] * X-ray Mandible minimum 4-views (10/07/2024 [...] EXAM: US ABDOMEN COMPLETE EXAM: US DUPLEX [id number] COMPLETE INDICATION: elevated bilirubin COMPARISON: Ultrasound and [...] EXAM: US ABDOMEN COMPLETE EXAM: US DUPLEX [id number] COMPLETE INDICATION: elevated bilirubin COMPARISON: Ultrasound and [...] Findingssimilar to prior. Report Verified by: Alberto Rodirguez MD at 10/07/2024 4:26 PM EDT us Bisidante Hernandez DO G US ORDERABLES Final Result * US Duplex [id number] Comp (10/07/2024 3:48 PM EDT) Anatomical Region [...] EXAM: US ABDOMEN COMPLETE EXAM: US DUPLEX [id number] COMPLETE INDICATION: elevated bilirubin COMPARISON: Ultrasound and [...] EXAM: US ABDOMEN COMPLETE EXAM: US DUPLEX [id number] COMPLETE INDICATION: elevated bilirubin COMPARISON: Ultrasound and [...] 4:26 PM EDT us Bisi Hernandez DO [facility] US ORDERABLES Final Result * CARISA Rhythm Strip - Scan (10/07/2024 3:30 PM EDT) us Scanning Uchhi SCAN DOCS - NO RESULTS Final Res ult * (ABNORMAL) Protime-INR (10/07/2024 6:00 AM EDT) Protime 26.9(H) 12.1 - 15.1 seconds 10/07/2024 6:55 AM EDT [facility] INR 2.4(H) 0.9 - 1.1 10/07/2024 6:55 AM EDT HEALTH LAB Comment: RECOMMENDED THERAPEUTIC RANGES USING INR : Stable oral anticoagulant therapy: 2.0 - 3.0 Mechanical prosthetic heart valve: 2.5 - 3.5 Recurrent acute myocardial infarction: 2.5 - 3.5 Plasma 10/07/2024 6:00 AM EDT 10/07/2024 6:39 AM EDT Eileen Schroeder MD, PhD LAB BLOOD ORDERABLES Final Result Performing Organization Address [facility]/ZIP Co de Phone Number [facility] [address] * (ABNORMAL) Hepatic Function Panel (10/07/2024 6:00 AM EDT) Total Bilirubin 9.7(H) 0.0 - 1.5 mg/dL 10/07/2024 7:10 AM EDT [facility] Bilirubin, Direct 5.21(H) 0.00 - 0.40 mg/dL 10/07/2024 7:10 AM EDT [facility] AST 39 13 - 39 U/L 10/07/2024 7:10 AM EDT [facility] ALT 18 7 - 52 U/L 10/07/2024 7:10 AM EDT [facility] Alkaline Phosphatase 98 36 - 125 U/L 10/07/2024 7:10 AM EDT [facility] Total Protein 4.8(L) 6.4 - 8.9 g/dL 10/07/2024 7:10 AM EDT [facility] Albumin 3.6 3.5 - 5.7 g/dL 10/07/2024 7:10 AM EDT [facility] Bilirubin, Indirect 4.49(H) 0.00 - 1.10 mg/dL 10/07/2024 7:10 AM EDT [facility] Plasma 10/07/2024 6:00 AM EDT 10/07/2024 6:39 AM EDT Eileen Schroeder MD, PhD LAB BLOOD ORDERABLES Final Result [facility] [address] * Magnesium (10/07/2024 6:00 AM EDT) Magnesium 1.7 1.5 - 2.5 mg/dL 10/07/2024 7:10 AM EDT [facility] Plasma 10/07/2024 6:00 AM EDT 10/07/2024 6:39 AM EDT us Eileen Schroeder MD, PhD LAB BLOOD ORDERABLES Final Result [facility] [address] * (ABNORMAL) Renal Function Panel w/EGFR (10/07/2024 6:00 AM EDT) Sodium 132(L) 133 - 146 mmol/L 10/07/2024 7:10 AM EDT [facility] Potassium 3.9 3.5 - 5.3 mmol/L 10/07/2024 7:10 AM EDT [facility] Chloride 103 98 - 110 mmol/L 10/07/2024 7:10 AM EDT [facility] CO2 19(L) 21 - 33 mmol/L 10/07/2024 7:10 AM EDT [facility] Anion Gap 10 3 - 16 mmol/L 10/07/2024 7:10 AM EDT [facility] BUN 64(H) 7 - 25 mg/dL 10/07/2024 7:10 AM EDT [facility] Creatinine 3.38(H) 0.60 - 1.30 mg/dL 10/07/2024 7:10 AM EDT [facility] Glucose 111(H) 70 - 100 mg/dL 10/07/2024 7:10 AM EDT [facility] Calcium 9.1 8.6 - 10.3 mg/dL 10/07/2024 7:10 AM EDT [facility] Phosphorus 4.2 2.1 - 4.7 mg/dL 10/07/2024 7:10 AM EDT [facility] Albumin 3.6 3.5 - 5.7 g/dL 10/07/2024 7:10 AM EDT [facility]ALTH [facility] Osmolality, Calculated 293 278 - 305 mOsm/kg 10/07/2024 7:10 AM EDT [facility] EGFR 22 10/07/2024 7:10 AM EDT [facility] Comment:As of 2021, the [...] MD, PhD LAB BLOOD ORDERABLES Final Result [facility] [address] [place] [address], [facility] * (ABNORMAL) CBC (10/07/2024 6:00 AM EDT) WBC 3.3(L) 3.8 - 10.8 10E3/uL 10/07/2024 7:55 AM EDT [facility] RBC 2.06(L) 4.20 - 5.80 10E6/uL 10/07/2024 7:55 AM EDT [facility] Hemoglobin 7.4(L) 13.2 - 17.1 g/dL 10/07/2024 7:55 AM EDT [facility] Hematocrit 21.5(L) 38.5 - 50.0 % 10/07/2024 7:55 AM EDT [facility] MCV 104.1(H) 80.0 - 100.0 fL 10/07/2024 7:55 AM EDT [facility] MCH 35.8(H) 27.0 - 33.0 pg 10/07/2024 7:55 AM EDT [facility] MCHC 34.4 32.0 - 36.0 g/dL 10/07/2024 7:55 AM EDT [facility] RDW 17.5(H) 11.0 - 15.0 % 10/07/2024 7:55 AM EDT [facility] Platelets 35(L) 140 - 400 10E3/uL 10/07/2024 7:55 AM EDT [facility] Comment: Specimen checked for clots. None detected. Slide Reviewed for PLT Clumps. None Seen. _Platelet Morphology Normal _Platelets Appear Decreased Platelet Estimate Decreased 10/07/2024 7:55 AM EDT [facility] MPV 8.0 7.5 - 11.5 fL 10/07/2024 7:55 AM EDT [facility] Whole Blood 10/07/2024 6:00 AM EDT 10/07/2024 6:40 AM EDT Narrative [facility] - 10/07/2024 7:55 AM EDT Peripheral blood smear was scanned per review criteria approved by the laboratory medical professionals. Eileen Schroeder MD, PhD LAB BLOOD ORDERABLES Final Result [facility] [address] [place] [address], [facility] * AFP Tumor Marker (10/07/2024 6:00 AM EDT) AFP-Tumor Marker 2.0 0.0 - 9.0 ng/mL 10/07/2024 7:11 AM EDT [facility] Serum 10/07/2024 6:00 AM EDT 10/07/2024 6:39 AM EDT Narrative [facility] - 10/07/2024 7:11 AM EDT The testing method for AFP is a chemiluminescent immunoassay manufactured by [employer] Concentrations of AFP obtained by different assay methods or kits may vary and cannot be used interchangeably. AFP results cannot be interpreted as absolute evidence of the presence or absence of malignant disease. Shila Rivera MD LAB BLOOD ORDERABLES Final Resul t Performing Organization Address [facility] Co de Phone Number [facility] [address] * Vancomycin, random (10/07/2024 6:00 AM EDT) Vancomycin Random 21.1 ug/mL 10/07/2024 7:08 AM EDT [facility] Comment:Reference range not established for this test. Plasma 10/07/2024 6:00 AM EDT 10/07/2024 6:39 AM EDT Kiet Gardiner PharmD LAB BLOOD ORDERABLES Final Re sult Performing Organization Address [facility] Co de Phone Number [facility] [address] * Osmolality (10/06/2024 2:50 PM EDT) Osmolality, Measured 304 278 - 305 mOsm/kg 10/06/2024 3:49 PM EDT [facility] Serum 10/06/2024 2:50 PM EDT 10/06/2024 2:56 PM EDT Chari Vanegas MD LAB BLOOD ORDERABLES Final Resul t Performing Organization Address [facility] Co de Phone Number [facility] [address] * CT Head WO contrast (10/06/2024 [...] 4:50 PM EDT Eileen Schroeder MD, PhD [facility] CT ORDERABLES [facility] Result * Chloride, urine, random (10/06/2024 1:25 PM EDT) Chloride, Ur <15 mmol/L 10/06/2024 1:56 PM EDT [facility] Comment:Reference range not established for this test. Urine 10/06/2024 1:25 PM EDT 10/06/2024 1:32 PM EDT us Chari Vanegas MD URINE ORDERABLES Final Result Performing Organization Address [facility] Co de Phone Number [facility] [address] * Potassium, urine, random (10/06/2024 1:25 PM EDT) Potassium Urine Random 50.0 mmol/L 10/06/2024 1:56 PM EDT [facility] Comment:Reference range not established for this test. Urine 10/06/2024 1:25 PM EDT 10/06/2024 1:32 PM EDT us Chari Vanegas MD URINE ORDERABLES Final Result Performing Organization Address [facility] Co de Phone Number [facility] [address] * Sodium, urine, random (10/06/2024 1:25 PM EDT) Sodium, Ur <10 mmol/L 10/06/2024 1:56 PM EDT [facility] Comment:Reference range not established for this test. Urine 10/06/2024 1:25 PM EDT 10/06/2024 1:32 PM EDT us Chari Vanegas MD URINE ORDERABLES Final Result Performing Organization Address [facility] Co de Phone Number [facility] [address] * Creatinine, Urine, Random (10/06/2024 1:25 PM EDT) Creatinine, Urine 87.40 mg/dL 10/06/2024 1:56 PM EDT [facility] Comment:Reference range not established for this test. Urine 10/06/2024 1:25 PM EDT 10/06/2024 1:32 PM EDT us Chari Vanegas MD URINE ORDERABLES Final Result Performing Organization Address [facility] Co de Phone Number [facility] [address] * Osmolality, Urine (10/06/2024 1:25 PM EDT) Osmolality, Ur 386 50 - 1,200 mOsm/kg 10/06/2024 1:55 PM EDT [facility] Urine 10/06/2024 1:25 PM EDT 10/06/2024 1:32 PM EDT Chari Vanegas MD URINE ORDERABLES Final Result [facility] [address] * Urine Drug Confirmation (10/06/2024 11:51 [...] PRESENT 10/09/2024 3:23 PM EDT [facility] BUSINESS STRATEGIST STIMULANTS NOT PRESENT 3:23 PM EDT HEALTH [...] ANTIDEPRESSANTS NOT PRESENT 10/09/2024 3:23 PM EDT [facility] Urine 10/06/2024 11:5 1 AM EDT 10/06/2024 1:13 PM EDT Bisi Hernandez DO URINE ORDERABLES Final Result [facility] [address] [place] [address], [facility] * (ABNORMAL) Urine Drug Screen Reflex to Confirmation (10/06/2024 11:51 AM EDT) Amphetamine, 500 ng/mL Cutoff Negative Negative 10/06/2024 1:13 PM EDT [facility] Barbiturates UR, 300 ng/mL Cutoff Negative Negative 10/06/2024 1:13 PM EDT [facility] Buprenorphine, 5 ng/mL Cutoff Negative Negative 10/06/2024 1:13 PM EDT [facility] Benzodiazepines UR, 300 ng/mL Cutoff Negative Negative 10/06/2024 1:13 PM EDT [facility] Cocaine UR, 300 ng/mL Cutoff Negative Negative 10/06/2024 1:13 PM EDT [facility] Methadone, UR, 300 ng/mL Cutoff Negative Negative 10/06/2024 1:13 PM EDT [facility] Opiates UR, 300 ng/mL Cutoff Negative Negative 10/06/2024 1:13 PM EDT [facility] Oxycodone, 100 ng/mL Cutoff Presumptive Positive(A) Negative 10/06/2024 1:13 PM EDT [facility] Tricyclic Antidepressants, 300 ng/mL Cutoff Negative Negative 10/06/2024 1:13 PM EDT [facility] Comment:This test has been d eveloped and its performance characteristics determined by [facility] which is certified under the [...] Cutoff Negative Negative 10/06/2024 1:13 PM EDT [facility] Comment:This is a screening method only and may be associated with false positive and/or false negative results. Results are not definitive without additional confirmatory testing by mass spectrometry. Fentanyl, 2 ng/mL Cutoff Negative Negative 10/06/2024 1:13 PM EDT [facility] Comment:This test has been d eveloped and its performance characteristics determined by [facility] which is certified under the [...] AM EDT 10/06/2024 11:58 AM EDT Narrative [facility] - 10/06/2024 1:13 PM EDT CONFIRMATION TO FOLLOW [facility] URINE ORDERABLES Final Result Performing Organization Address [facility] de Phone Number [facility] [address] [place] [address] * Chloride, urine, random (10/06/2024 11:51 AM EDT) Chloride, Ur <15 mmol/L 10/06/2024 1:13 PM EDT [facility] Comment:Reference range not established for this test. Urine 10/06/2024 11:5 1 AM EDT 10/06/2024 11:57 AM EDT [facility] URINE ORDERABLES Final Result Performing Organization Address [facility] de Phone Number [facility] [address] [place] [address]. [address] * Potassium, urine, random (10/06/2024 11:51 AM EDT) Potassium Urine Random 49.0 mmol/L 10/06/2024 1:13 PM EDT [facility] Comment:Reference range not established for this test. Urine 10/06/2024 11:5 1 AM EDT 10/06/2024 11:57 AM EDT Red Condorana maría DO URINE ORDERABLES Final Result [facility] [address] * Sodium, urine, random (10/06/2024 11:51 AM EDT) Sodium, Ur <10 mmol/L 10/06/2024 1:13 PM EDT [facility] Comment:Reference range not established for this test. Urine 10/06/2024 11:5 1 AM EDT 10/06/2024 11:57 AM EDT Bisi Hernandez DO URINE ORDERABLES Final Result Performing Organization Address [facility] Co de Phone Number [facility] [address] [facility]. [address] * Urinalysis w/Rfl to Microscopic (10/06/2024 11:51 AM EDT) Color, UA Yellow Yellow,Straw 10/06/2024 12:25 PM EDT [facility] Clarity, UA Clear Clear 10/06/2024 12:25 PM EDT [facility] Specific [place], UA 1.014 1.005 - 1.035 10/06/2024 12:25 PM EDT [facility] pH, UA 6.0 5.0 - 8.0 10/06/2024 12:25 PM EDT [facility] Protein, UA Negative Negative mg/dL 10/06/2024 12:25 PM EDT [facility] Glucose, UA Negative Negative mg/dL 10/06/2024 12:25 PM EDT [facility] Ketones, UA Negative Negative mg/dL 10/06/2024 12:25 PM EDT [facility] Bilirubin, UA Negative Negative 10/06/2024 12:25 PM EDT [facility] Blood, UA Negative Negative 10/06/2024 12:25 PM EDT [facility] Nitrite, UA Negative Negative 10/06/2024 12:25 PM EDT [facility] Urobilinogen, UA <2.0 0.2 - 1.9 mg/dL 10/06/2024 12:25 PM EDT [facility] Leukocyte Esterase, UA Negative Negative 10/06/2024 12:25 PM EDT [facility] Urine 10/06/2024 11:5 1 AM EDT 10/06/2024 11:57 AM EDT Narrative [facility] - 10/06/2024 12:25 PM EDT Microscopic testing is not performed when the dipstick is negative for blood, leukocyte, protein and nitrite. Bisi Hernandez DO URINE ORDERABLES Final Result Performing Organization Address City/[facility]/ZIP Co de Phone Number [facility] [address] * Lactic Acid, STAT (10/06/2024 7:38 AM EDT) Lactate 0.9 0.5 - 2.2 mmol/L 10/06/2024 8:05 AM EDT [facility] Plasma 10/06/2024 7:38 AM EDT 10/06/2024 7:42 AM EDT Chari Vanegas MD LAB BLOOD ORDERABLES Final Resul t Performing Organization Address [facility]/ZIP Co de Phone Number [facility] [address] * (ABNORMAL) CBC, STAT (10/06/2024 7:37 AM EDT) WBC 5.6 3.8 - 10.8 10E3/uL 10/06/2024 8:22 AM EDT [facility] RBC 2.50(L) 4.20 - 5.80 10E6/uL 10/06/2024 8:22 AM EDT [facility] Hemoglobin 9.0(L) 13.2 - 17.1 g/dL 10/06/2024 8:22 AM EDT [facility] Hematocrit 25.3(L) 38.5 - 50.0 % 10/06/2024 8:22 AM EDT [facility] MCV 101.2(H) 80.0 - 100.0 fL 10/06/2024 8:22 AM EDT [facility] MCH 36.0(H) 27.0 - 33.0 pg 10/06/2024 8:22 AM EDT [facility] MCHC 35.6 32.0 - 36.0 g/dL 10/06/2024 8:22 AM EDT [facility] RDW 17.7(H) 11.0 - 15.0 % 10/06/2024 8:22 AM EDT [facility] Platelets 52(L) 140 - 400 10E3/uL 10/06/2024 8:22 AM EDT [facility] Comment: Specimen checked for clots. None detected. Slide Reviewed for PLT Clumps. None Seen. MPV 8.2 7.5 - 11.5 fL 10/06/2024 8:22 AM EDT [facility] Whole Blood 10/06/2024 7:37 AM EDT 10/06/2024 7:43 AM EDT us Chari Vanegas MD LAB BLOOD ORDERABLES Final Resul t [facility] [address] [place] [address], [facility] * (ABNORMAL) Comprehensive Metabolic Panel (10/06/2024 7:37 AM EDT) Sodium 129(L) 133 - 146 mmol/L 10/06/2024 8:16 AM EDT [facility] Potassium 4.4 3.5 - 5.3 mmol/L 10/06/2024 8:16 AM EDT [facility] Chloride 100 98 - 110 mmol/L 10/06/2024 8:16 AM EDT [facility] CO2 18(L) 21 - 33 mmol/L 10/06/2024 8:16 AM EDT [facility] Anion Gap 11 3 - 16 mmol/L 10/06/2024 8:16 AM EDT [facility] BUN 62(H) 7 - 25 mg/dL 10/06/2024 8:16 AM EDT [facility] Creatinine 3.40(H) 0.60 - 1.30 mg/dL 10/06/2024 8:16 AM EDT [facility] Glucose 98 70 - 100 mg/dL 10/06/2024 8:16 AM EDT [facility] Calcium 9.5 8.6 - 10.3 mg/dL 10/06/2024 8:16 AM EDT [facility] Total Bilirubin 14.3(H) 0.0 - 1.5 mg/dL 10/06/2024 8:16 AM EDT [facility] AST 57(H) 13 - 39 U/L 10/06/2024 8:16 AM EDT [facility] ALT 29 7 - 52 U/L 10/06/2024 8:16 AM EDT [facility] Alkaline Phosphatase 158(H) 36 - 125 U/L 10/06/2024 8:16 AM EDT [facility] Total Protein 5.6(L) 6.4 - 8.9 g/dL 10/06/2024 8:16 AM EDT [facility] Albumin 3.6 3.5 - 5.7 g/dL 10/06/2024 8:16 AM EDT [facility] Osmolality, Calculated 286 278 - 305 mOsm/kg 10/06/2024 8:16 AM EDT [facility] EGFR 22 10/06/2024 8:16 AM EDT [facility] Comment:As of 2021, the [...] MD LAB BLOOD ORDERABLES Final Resul t [facility] [address] [facility]. [address] * (ABNORMAL) Venous Blood Gas, Line/Syringe, STAT (10/06/2024 7:37 AM EDT) PH-Line Draw 7.27(L) 7.32 - 7.42 10/06/2024 7:46 AM EDT [facility] PCO2-Line Draw 36(L) 41 - 51 mm Hg 10/06/2024 7:46 AM EDT [facility] PO2-Line Draw 44(H) 25 - 40 mm Hg 10/06/2024 7:46 AM EDT [facility] HCO3-Line Draw 17(L) 24 - 28 mmol/L 10/06/2024 7:46 AM EDT [facility] CO2 Content-Line Draw 18(L) 25 - 29 mmol/L 10/06/2024 7:46 AM EDT [facility] Base Excess-Line Draw -9.6(L) -2.0 - 3.0 mmol/L 10/06/2024 7:46 AM EDT [facility] %HBO2-Line Draw 69.8 40.0 - 70.0 % 10/06/2024 7:46 AM EDT [facility] Carboxyhgb-Ludivina e Draw 0.7 % 10/06/2024 7:46 AM EDT [facility] Comment: CARBOXYHEMOGLOBIN (CO) REFERENCE RANGES: Non-Smokers: <2 % Smokers: <8 % TOXIC: >20 % Methemoglobin- Line Draw 0.3 0.0 - 1.5 % 10/06/2024 7:46 AM EDT [facility] Reduced Hemoglobin-Ludivina e Draw 29.2(H) 0.0 - 5.0 % 10/06/2024 7:46 AM EDT [facility] Venous, Line Draw 10/06/2024 7:37 AM EDT 10/06/2024 7:43 AM EDT Chari Vanegas MD LAB BLOOD ORDERABLES Final Resul t [facility] [address] [facility] [place] [address], [facility] * (ABNORMAL) Venous Blood Gas, Line/Syringe, STAT (10/06/2024 4:03 AM EDT) PH-Line Draw 7.21(L) 7.32 - 7.42 10/06/2024 4:16 AM EDT [facility] PCO2-Line Draw 41 41 - 51 mm Hg 10/06/2024 4:16 AM EDT [facility] PO2-Line Draw 32 25 - 40 mm Hg 10/06/2024 4:16 AM EDT [facility] HCO3-Line Draw 16(L) 24 - 28 mmol/L 10/06/2024 4:16 AM EDT [facility] CO2 Content-Line Draw 18(L) 25 - 29 mmol/L 10/06/2024 4:16 AM EDT [facility] Base Excess-Line Draw -10.8(L) -2.0 - 3.0 mmol/L 10/06/2024 4:16 AM EDT [facility] %HBO2-Line Draw 47.5 40.0 - 70.0 % 10/06/2024 4:16 AM EDT [facility] Carboxyhgb-Ludivina e Draw 2.0 % 10/06/2024 4:16 AM EDT [facility] Comment: CARBOXYHEMOGLOBIN (CO) REFERENCE RANGES: Non-Smokers: <2 % Smokers: <8 % TOXIC: >20 % Methemoglobin- Line Draw 0.7 0.0 - 1.5 % 10/06/2024 4:16 AM EDT [facility] Reduced Hemoglobin-Ludivina e Draw 49.8(H) 0.0 - 5.0 % 10/06/2024 4:16 AM EDT [facility] Venous, Line Draw 10/06/2024 4:03 AM EDT 10/06/2024 4:12 AM EDT us Bisi Hernandez DO LAB BLOOD ORDERABLES Final Resul t [facility] [address] [place] [address], [facility] * (ABNORMAL) Protime-INR (10/06/2024 4:01 AM EDT) Protime 21.3(H) 12.1 - 15.1 seconds 10/06/2024 4:40 AM EDT [facility] INR 1.8(H) 0.9 - 1.1 10/06/2024 4:40 AM EDT [facility] Comment: RECOMMENDED THERAPEUTIC RANGES USING INR : Stable oral anticoagulant therapy: 2.0 - 3.0 Mechanical prosthetic heart valve: 2.5 - 3.5 Recurrent acute myocardial infarction: 2.5 - 3.5 Plasma 10/06/2024 4:0 1 AM EDT 10/06/2024 4:11 AM EDT us iBsi Hernandez DO LAB BLOOD ORDERABLES Final Resul t [facility] [address] * (ABNORMAL) Hepatic Function Panel, AM (10/06/2024 4:01 AM EDT) Pathologist [facility] Total Bilirubin 14.7(H) 0.0 - 1.5 mg/dL 10/06/2024 4:57 AM EDT [facility] Bilirubin, Direct 7.08(H) 0.00 - 0.40 mg/dL 10/06/2024 4:57 AM EDT [facility] AST 60(H) 13 - 39 U/L 10/06/2024 4:57 AM EDT [facility] ALT 31 7 - 52 U/L 10/06/2024 4:57 AM EDT [facility] Alkaline Phosphatase 162(H) 36 - 125 U/L 10/06/2024 4:57 AM EDT [facility] Total Protein 5.3(L) 6.4 - 8.9 g/dL 10/06/2024 4:57 AM EDT [facility] Albumin 3.4(L) 3.5 - 5.7 g/dL 10/06/2024 4:57 AM EDT [facility] Bilirubin, Indirect 7.62(H) 0.00 - 1.10 mg/dL 10/06/2024 4:57 AM EDT [facility] Plasma 10/06/2024 4:01 AM EDT 10/06/2024 4:22 AM EDT [employer] [facility] BLOOD ORDERABLES Final Resul t Performing Organization Address City/[facility]/ZIP Co de Phone Number [facility] [address] [facility]. [address] * Magnesium (10/06/2024 4:01 AM EDT) Magnesium 1.8 1.5 - 2.5 mg/dL 10/06/2024 4:57 AM EDT [facility] Plasma 10/06/2024 4:01 AM EDT 10/06/2024 4:22 AM EDT [employer] LAB BLOOD ORDERABLES Final Resul t Performing Organization Address [facility] de Phone Number [facility] [address] [facility]. [address] * (ABNORMAL) Renal Function Panel w/EGFR (10/06/2024 4:01 AM EDT) Sodium 129(L) 133 - 146 mmol/L 10/06/2024 4:57 AM EDT [facility] Potassium 4.7 3.5 - 5.3 mmol/L 10/06/2024 4:57 AM EDT [facility] Chloride 100 98 - 110 mmol/L 10/06/2024 4:57 AM EDT [facility] CO2 16(L) 21 - 33 mmol/L 10/06/2024 4:57 AM EDT [facility] Anion Gap 13 3 - 16 mmol/L 10/06/2024 4:57 AM EDT [facility] BUN 61(H) 7 - 25 mg/dL 10/06/2024 4:57 AM EDT [facility] Creatinine 3.49(H) 0.60 - 1.30 mg/dL 10/06/2024 4:57 AM EDT [facility] Glucose 104(H) 70 - 100 mg/dL 10/06/2024 4:57 AM EDT [facility] Calcium 9.2 8.6 - 10.3 mg/dL 10/06/2024 4:57 AM EDT [facility] Phosphorus 5.3(H) 2.1 - 4.7 mg/dL 10/06/2024 4:57 AM EDT [facility] Albumin 3.4(L) 3.5 - 5.7 g/dL 10/06/2024 4:57 AM EDT [facility] Osmolality, Calculated 286 278 - 305 mOsm/kg 10/06/2024 4:57 AM EDT [facility] EGFR 22 10/06/2024 4:57 AM EDT [facility] Comment:As of 2021, the [...] DO LAB BLOOD ORDERABLES Final Resul t [facility] [address] * (ABNORMAL) CBC (10/06/2024 4:01 AM EDT) WBC 7.6 3.8 - 10.8 10E3/uL 10/06/2024 5:16 AM EDT [facility] RBC 2.77(L) 4.20 - 5.80 10E6/uL 10/06/2024 5:16 AM EDT [facility] Hemoglobin 10.1(L) 13.2 - 17.1 g/dL 10/06/2024 5:16 AM EDT [facility] Hematocrit 28.4(L) 38.5 - 50.0 % 10/06/2024 5:16 AM EDT [facility] MCV 102.4(H) 80.0 - 100.0 fL 10/06/2024 5:16 AM EDT [facility] MCH 36.4(H) 27.0 - 33.0 pg 10/06/2024 5:16 AM EDT [facility] MCHC 35.5 32.0 - 36.0 g/dL 10/06/2024 5:16 AM EDT [facility] RDW 18.0(H) 11.0 - 15.0 % 10/06/2024 5:16 AM EDT [facility] Platelets 53(L) 140 - 400 10E3/uL 10/06/2024 5:16 AM EDT [facility] Comment:Specimen checked for clots. None detected. MPV 8.4 7.5 - 11.5 fL 10/06/2024 5:16 AM EDT [facility] Whole Blood 10/06/2024 4:01 AM EDT 10/06/2024 4:11 AM EDT [employer] LAB BLOOD ORDERABLES Final Resul t [facility] [address] [place] [address], [facility] * Hepatitis C Antibody (10/06/2024 4:01 AM EDT) HCV Ab Nonreactive Nonreactive 10/06/2024 5:12 AM EDT [facility] Comment:Health Department no tified in accordance with reportable infectious disease guidelines. Serum 10/06/2024 4:01 AM EDT 10/06/2024 4:11 AM EDT Narrative [facility] - 10/06/2024 5:12 AM EDT Antibodies to HCV not detected; does not exclude the possibility of exposure to HCV. [employer] LAB BLOOD ORDERABLES Final Resul t [facility] [address] [facility]. [address] * (ABNORMAL) Hepatitis B Surface Antibody, Quantitati (10/06/2024 4:01 AM EDT) Hep B S Ab Reactive( A) Nonreactive 10/06/2024 5:16 AM EDT [facility] HBSAB NUMBER 11.50(H) 0.00 - 7.99 mIU/mL 10/06/2024 5:16 AM EDT [facility] Serum 10/06/2024 4:01 AM EDT 10/06/2024 4:11 AM EDT [facility] - 10/06/2024 5:16 AM EDT Individual is considered immune to HBV infection. [facility] LAB BLOOD ORDERABLES Final Resul t Performing Organization Address [facility] Co de Phone Number [facility] [address] [facility] * Hepatitis B surface antigen (10/06/2024 4:01 AM EDT) Hep B Surface Ag Nonreactive Nonreactive 10/06/2024 5:07 AM EDT [facility] Comment:Health Department no tified in accordance with reportable infectious disease guidelines. Serum 10/06/2024 4:01 AM EDT 10/06/2024 4:11 AM EDT [facility] - 10/06/2024 5:07 AM EDT Specimen is considered negative for HBsAg. [employer] LAB BLOOD ORDERABLES Final Resul t Performing Organization Address [facility] Co de Phone Number [facility] [address] [facility] * Hepatitis A Antibody Total (10/06/2024 4:01 AM EDT) Anti-HAV Total (IgG + IgM) Nonreactive 10/06/2024 5:08 AM EDT [facility] Serum 10/06/2024 4:01 AM EDT 10/06/2024 4:11 AM EDT Narrative [facility] - 10/06/2024 5:08 AM EDT HAV antibodies not detected [employer] LAB BLOOD ORDERABLES Final Resul t Performing Organization Address City/[facility]/ZIP Co de Phone Number [facility] [address] [facility]. [address] * Hepatitis A IgM (10/06/2024 4:01 AM EDT) Hep A IgM Nonreactive Nonreactive 10/06/2024 5:02 AM EDT [facility] Serum 10/06/2024 4:01 AM EDT 10/06/2024 4:11 AM EDT [facility] - 10/06/2024 5:02 AM EDT IgM anti-HAV not detected. Does not exclude the possibility of exposure to or infection with HAV. Levels of IgM anti-HAV may be below the cut-off in early infection. [employer] LAB BLOOD ORDERABLES Final Resul t Performing Organization Address [facility] Co de Phone Number [facility] [address] [facility]. [address] * (ABNORMAL) Salicylate Level (10/06/2024 4:01 AM EDT) Salicylate Lvl <3(L) 10 - 30 mg/dL 10/06/2024 4:58 AM EDT [facility] Serum 10/06/2024 4:01 AM EDT 10/06/2024 4:22 AM EDT [employer] LAB BLOOD ORDERABLES Final Resul t Performing Organization Address City/[facility]/ZIP Co de Phone Number [facility] [address] [facility]. [address] * AFP Tumor Marker (10/06/2024 4:01 AM EDT) AFP-Tumor Marker 2.6 0.0 - 9.0 ng/mL 10/06/2024 4:55 AM EDT [facility] Serum 10/06/2024 4:01 AM EDT 10/06/2024 4:22 AM EDT Narrative [facility] - 10/06/2024 4:55 AM EDT The testing method for AFP is a chemiluminescent immunoassay manufactured by [employer] Concentrations of AFP obtained by different assay methods or kits may vary and cannot be used interchangeably. AFP results cannot be interpreted as absolute evidence of the presence or absence of malignant disease. us Bisi Hernandez DO LAB BLOOD ORDERABLES Final Resul t [facility] [address] [facility]. [place] [id number], [facility] * Upper Respiratory Viral/Bacterial Panel-[employer]INE [employer]ATOR Only (10/06/2024 3:12 AM EDT) [facility] Adenovirus Not Detected Not Detected 10/06/2024 11:38 PM EDT [facility] Coronavirus (229E,HKU1,NL63,OC 43) Not Detected Not Detected 10/06/2024 11:38 PM EDT [facility] SARS-CoV-2 Not Detected Not Detected 10/06/2024 11:38 PM EDT [facility] Human Metapneumovirus Not Detected Not Detected 10/06/2024 11:38 PM EDT [facility] Human Rhinovirus/Enterov irus Not Detected Not Detected 10/06/2024 11:38 PM EDT [facility] Influenza A Not Detected Not Detected 10/06/2024 11:38 PM EDT [facility] Influenza A H1 Not Detected Not Detected 10/06/2024 11:38 PM EDT [facility] Influenza A/H1-2009 Not Detected Not Detected 10/06/2024 11:38 PM EDT [facility] Influenza A H3 Not Detected Not Detected 10/06/2024 11:38 PM EDT [facility] Influenza B Not Detected Not Detected 10/06/2024 11:38 PM EDT [facility] Parainfluenza 1 Not Detected Not Detected 10/06/2024 11:38 PM EDT [facility] Parainfluenza 2 Not Detected Not Detected 10/06/2024 11:38 PM EDT [facility] Parainfluenza 3 Not Detected Not Detected 10/06/2024 11:38 PM EDT [facility] Parainfluenza 4 Not Detected Not Detected 10/06/2024 11:38 PM EDT [facility] Resp. Syncycial Virus A Not Detected Not Detected 10/06/2024 11:38 PM EDT [facility] Resp. Syncycial Virus B Not Detected Not Detected 10/06/2024 11:38 PM EDT [facility] Chlamydia pneumoniae Not Detected Not Detected 10/06/2024 11:38 PM EDT [facility] Mycoplasma pneumoniae Not Detected Not Detected 10/06/2024 11:38 PM EDT [facility] Comment: The Respiratory Viral-Bacterial Panel [...] Test results have been sent to the [facility] in accordance with state requirements. For a fact sheet for healthcare providers, see https://www.fda.gov/media/270290/download. For a fact sheet for patients, see https://www.fda.gov/media/157617/download. 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 * X-ray Portable Chest [...] at 10/06/2024 2:33 AM EDT us Bisi Mary DO IMG DIAGNOSTIC IMAGING ORDERABLE S Final Result * Phosphatidylethanol Confirmation, B (10/06/2024 1:04 AM EDT) PETH 16:0/18.1 (POPETH) <10 Cutoff: 10 ng/mL 10/10/2024 3:11 AM EDT [facility] Comment: Phosphatidylethanol (PEth) homologues result [...] developed and its performance characteristics determined by [facility] in a manner consistent with CLIA requirements. This test has not been cleared or approved by the U.S. Food and Drug Administration. Test Performed by: [facility] [place] [place] [address] Messenger Copy: Kathy Ortiz Ph.D.; CLIA# [id number] Whole Blood 10/06/2024 1:04 AM EDT 10/10/2024 3:11 AM EDT us Bisi Hernandez DO LAB BLOOD ORDERABLES Final Resul t [facility] [address] * (ABNORMAL) Acetaminophen Level (10/06/2024 1:04 AM EDT) Acetaminophen Level <10(L) 10 - 30 ug/mL 10/06/2024 2:08 AM EDT [facility] Serum 10/06/2024 1:04 AM EDT 10/06/2024 1:30 AM EDT [employer] LAB BLOOD ORDERABLES Final Resul t [facility] [address] [facility]. [address] * Ethanol, Serum (10/06/2024 1:04 AM EDT) Ethanol <10 0 - 10 mg/dL 10/06/2024 2:08 AM EDT [facility] Serum 10/06/2024 1:04 AM EDT 10/06/2024 1:30 AM EDT [employer] LAB BLOOD ORDERABLES Final Resul t Performing Organization Address [facility]/ZIP Co de Phone Number [facility] [address] [facility]. [address] * #2 Blood culture-Peripheral site 2 (10/06/2024 1:04 AM EDT) Culture Result No Growth After 5 Days [facility] Blood BLOOD SPECIMEN / Unknown 10/06/2024 1:04 AM EDT 10/06/2024 4:57 AM EDT Narrative [facility] - 10/11/2024 5:05 AM EDT Suboptimal volume of blood received. Interpret results with caution. [employer] MICROBIOLOGY - GENERAL ORDERABLE S Final Result [facility] [address] * #1 Blood culture-Peripheral site 1 (10/06/2024 1:04 AM EDT) Culture Result No Growth After 5 Days [facility] Blood BLOOD SPECIMEN / Unknown 10/06/2024 1:04 AM EDT 10/06/2024 4:57 AM EDT Narrative [facility] - 10/11/2024 5:01 AM EDT Suboptimal volume of blood received. Interpret results with caution. [employer] DO MICROBIOLOGY - GENERAL ORDERABLE S Final Result [facility] [address] [facility]. [address] * Ammonia (10/06/2024 1:04 AM EDT) Ammonia 77 27 - 90 ug/dL 10/06/2024 2:00 AM EDT [facility] Plasma 10/06/2024 1:04 AM EDT 10/06/2024 1:30 AM EDT [employer] LAB BLOOD ORDERABLES Final Resul t Performing Organization Address City/[facility]/ZIP Co de Phone Number [facility] [address] [facility]. [address] * Thyroid Function [place] (10/06/2024 1:04 AM EDT) TSH 0.84 0.45 - 4.12 uIU/mL 10/06/2024 2:20 AM EDT [facility] Serum 10/06/2024 1:04 AM EDT 10/06/2024 1:39 AM EDT [employer] LAB BLOOD ORDERABLES Final Resul t Performing Organization Address City/[facility]/ZIP Co de Phone Number [facility] [address] [facility]. [address] * (ABNORMAL) Protime-INR (10/06/2024 1:04 AM EDT) Protime 22.8(H) 12.1 - 15.1 seconds 10/06/2024 1:48 AM EDT [facility] INR 1.9(H) 0.9 - 1.1 10/06/2024 1:48 AM EDT [facility] Comment: RECOMMENDED THERAPEUTIC RANGES USING INR : Stable oral anticoagulant therapy: 2.0 - 3.0 Mechanical prosthetic heart valve: 2.5 - 3.5 Recurrent acute myocardial infarction: 2.5 - 3.5 Plasma 10/06/2024 1:04 AM EDT 10/06/2024 1:30 AM EDT [employer] LAB BLOOD ORDERABLES Final Resul t Performing Organization Address [facility] Co de Phone Number [facility] [address] * Lactic Acid, STAT (10/06/2024 1:04 AM EDT) Pathologist [facility] Lactate 1.2 0.5 - 2.2 mmol/L 10/06/2024 1:59 AM EDT [facility] Plasma 10/06/2024 1:04 AM EDT 10/06/2024 1:30 AM EDT us [employer] LAB BLOOD ORDERABLES Final Resul t Performing Organization Address City/[facility] Co de Phone Number [facility] [address] * (ABNORMAL) CBC, STAT (10/06/2024 1:04 AM EDT) WBC 7.9 3.8 - 10.8 10E3/uL 10/06/2024 2:36 AM EDT [facility] RBC 2.76(L) 4.20 - 5.80 10E6/uL 10/06/2024 2:36 AM EDT [facility] Hemoglobin 9.9(L) 13.2 - 17.1 g/dL 10/06/2024 2:36 AM EDT [facility] Hematocrit 28.0(L) 38.5 - 50.0 % 10/06/2024 2:36 AM EDT [facility] MCV 101.5(H) 80.0 - 100.0 fL 10/06/2024 2:36 AM EDT [facility] MCH 35.7(H) 27.0 - 33.0 pg 10/06/2024 2:36 AM EDT [facility] MCHC 35.2 32.0 - 36.0 g/dL 10/06/2024 2:36 AM EDT [facility] RDW 17.9(H) 11.0 - 15.0 % 10/06/2024 2:36 AM EDT [facility] Platelets 58(L) 140 - 400 10E3/uL 10/06/2024 2:36 AM EDT [facility] Comment: Specimen checked for clots. None detected. Slide Reviewed for PLT Clumps. None Seen. MPV 8.2 7.5 - 11.5 fL 10/06/2024 2:36 AM EDT [facility] Whole Blood 10/06/2024 1:04 AM EDT 10/06/2024 1:31 AM EDT us Bisi Hernandez DO LAB BLOOD ORDERABLES Final Resul t [facility] [address] [place] [address], [facility] * (ABNORMAL) Comprehensive Metabolic Panel (10/06/2024 1:04 AM EDT) Sodium 127(L) 133 - 146 mmol/L 10/06/2024 2:05 AM EDT [facility] Potassium 4.5 3.5 - 5.3 mmol/L 10/06/2024 2:05 AM EDT [facility] Chloride 99 98 - 110 mmol/L 10/06/2024 2:05 AM EDT [facility] CO2 18(L) 21 - 33 mmol/L 10/06/2024 2:05 AM EDT [facility] Anion Gap 10 3 - 16 mmol/L 10/06/2024 2:05 AM EDT [facility] BUN 59(H) 7 - 25 mg/dL 10/06/2024 2:05 AM EDT [facility] Creatinine 3.54(H) 0.60 - 1.30 mg/dL 10/06/2024 2:05 AM EDT [facility] Glucose 116(H) 70 - 100 mg/dL 10/06/2024 2:05 AM EDT [facility] Calcium 9.0 8.6 - 10.3 mg/dL 10/06/2024 2:05 AM EDT [facility] Total Bilirubin 14.8(H) 0.0 - 1.5 mg/dL 10/06/2024 2:05 AM EDT [facility] AST 61(H) 13 - 39 U/L 10/06/2024 2:05 AM EDT [facility] ALT 33 7 - 52 U/L 10/06/2024 2:05 AM EDT [facility] Alkaline Phosphatase 174(H) 36 - 125 U/L 10/06/2024 2:05 AM T [facility] Total Protein 5.2(L) 6.4 - 8.9 g/dL 10/06/2024 2:05 AM EDT [facility] Albumin 3.3(L) 3.5 - 5.7 g/dL 10/06/2024 2:05 AM [facility] Osmolality, Calculated 282 278 - 305 mOsm/kg 10/06/2024 2:05 AM EDT [facility] EGFR 21 10/06/2024 2:05 AM [facility] Comment:As of 2021, the [...] DO LAB BLOOD ORDERABLES Final Resul t [facility] [address] [place] [address], [facility] documented in this encounter [...] 10 mg nitroGLYCERIN in D5W injection - DIESEL ENGINE INSPECTOR ONLY Intra-op PRN, Starting on Sun10/14/24 at [...] Anu Wolff RN)3 (Given - Provider: Chelsy Bush, ЮЛИЯ) 0833 (Given - Provider: Anu Wolff RN)2022 (Given - Provider: Soco Milton, ЮЛИЯ) 0849 (Given - Provider: Suzette Arciniega, RN) zinc sulfate (ZINCATE) capsule 220 mg [...] documented as of this encounter Care Teams Reed Cleaner Relationship Specialty Start Date End Date Enedina Mcguire NP [address] [place] [address] PCP - General Internal Medicine 10/05/24 documented as of this encounter
--- OUTSIDE RECORDS SUMMARY | 2024-10-20 09:10 | XMS_ITS | Encounter Summary ---
Author Organization [facility] Address [facility] [place] [address] Care Team Providers Care Cheese Cutter Name Role Phone Enedina cMguire NP Primary Care Provider [phone] Source Comments This information has been disclosed [...] release of HIV test results or diagnoses. [id number] Encounter Details Date Type Department Care Team (Latest Contact Info) Description 10/20/2024 9:10 AM EDT - 10/20/2024 11:59 PM EDT Hospital Encounter [facility] Radiology [address] [place] [address] System, Provider Not In Arrived Discharge Disposition: Home or Self Care WITHOUT [...] Recorded In the past 12 months has [employer], gas, oil, or water [employer] threatened to shut off services in your [...] any time in the past 12 m [facility], were you homeless or living in [...] this encounter Medications at Time of Discharge ciprofloxacin HCl (CIPRO) 500 MG tablet Take 1 tablet (500 mg total) by mouth daily. 30 tablet 10/20/2024 FLUoxetine (PROZAC) 20 MG capsule Take 1 [...] AM EDT 10/17/2024 naloxone (NARCAN) 4 mg/actuation [place] Apply 1 spray in one nostril if [...] 2 times a day. 60 tablet 10/20/2024 sodium bicarbonate 650 MG tablet Take 2 [...] 60 capsule 08/19/2024 1:23 PM EDT 08/20/2024 documented as of this encounter Plan of Treatment Upcoming Encounters Date Type Department Care Team (Late st Contact Info) Description 12/05/2024 8:01 AM EDT Hospital Encounter [facility] ENDOSCOPY [address] [place] [address] Chris Orosco MD [address] [place] [phone] 12/05/2024 8:01 AM EDT - 12/05/2024 8:31 AM EDT Surgery [facility] ENDOSCOPY [address] [place] [address] Chris Orosco MD [address] [place] [phone] EGD Scheduled Procedures Name Priority Associated Diagnoses [...] documented as of this encounter Care Teams Cheese Cutter Relationship Specialty Start Date End Date Enedina Mcguire NP [address] [place] [address] PCP - General Internal Medicine 10/05/24 documented as of this encounter
--- OUTSIDE RECORDS SUMMARY | 2024-10-20 09:10 | XMS_ITS | Encounter Summary ---
Author Organization [facility] Address [facility] [place] [address] Care Team Providers Care Maid Housekeeper Name Role Phone Enedina Mcguire NP Primary Care Provider [phone] Source Comments This information has been disclosed [...] release of HIV test results or diagnoses. [id number] Encounter Details Date Type Department Care Team (Latest Contact Info) Description 10/20/2024 9:10 AM EDT - 10/20/2024 11:59 PM EDT Hospital Encounter [facility] Radiology [address] [place] [address] System, Provider Not In Arrived Discharge Disposition: [...] Recorded In the past 12 months has [employer], gas, oil, or water [employer] threatened to shut off services in your [...] the past 12 m [facility], were you homeless or living in [...] AM EDT 10/17/2024 naloxone (NARCAN) 4 mg/actuation [place] Apply 1 spray in one nostril if [...] Description 12/05/2024 8:01 AM EDT Hospital Encounter [facility] ENDOSCOPY [address] [place] [address] Chris Orosco MD [address] [place] [phone] 12/05/2024 8:01 AM EDT - 12/05/2024 8:31 AM EDT Surgery [facility] ENDOSCOPY [address] [place] [address] Chris Orosco MD [address] [place] [phone] EGD Scheduled Procedures Name Priority Associated Diagnoses [...] documented as of this encounter Care Teams Maid Housekeeper Relationship Specialty Start Date End Date Enedina Mcguire NP [address] [place] [address] PCP - General Internal Medicine 10/05/24 documented as of this encounter
--- OUTSIDE RECORDS SUMMARY | 2024-10-20 09:10 | XMS_ITS | Encounter Summary ---
Author Organization [facility] Address [facility] [place] [address] Care Team Providers Care Digital Content Marketing Manager Name Role Phone Enedina Mcguire NP Primary Care Provider [phone] Source Comments This information has been disclosed [...] release of HIV test results or diagnoses. [id number] Encounter Details Date Type Department Care Team (Latest Contact Info) Description 10/20/2024 9:10 AM EDT - 10/20/2024 11:59 PM EDT Hospital Encounter [facility] Radiology [address] [place] [address] System, Provider Not In Arrived Discharge Disposition: [...] Recorded In the past 12 months has [employer], gas, oil, or water [employer] threatened to shut off services in your [...] AM EDT 10/17/2024 naloxone (NARCAN) 4 mg/actuation [place] Apply 1 spray in one nostril if [...] 12/05/2024 8:01 AM EDT Hospital Encounter [facility] ENDOSCOPY [address] [place] [address] Chris Orosco MD [address] [place] [phone] 12/05/2024 8:01 AM EDT - 12/05/2024 8:31 AM EDT Surgery [facility] ENDOSCOPY [address] [place] [address] Chris Orosco MD [address] [place] [phone] EGD Scheduled Procedures Name Priority Associated Diagnoses [...] documented as of this encounter Care Teams Digital Content Marketing Manager Relationship Specialty Start Date End Date Enedina Mcguire NP [address] [place] [address] PCP - General Internal Medicine 10/05/24 documented as of this encounter
--- OUTSIDE RECORDS SUMMARY | 2024-10-20 09:10 | XMS_ITS | Encounter Summary ---
Author Organization [facility] Address [facility] [place] [address] Care Team Providers Care Lunch Cook Name Role Phone Enedina Mcguire NP Primary Care Provider [phone] Source Comments This information has been disclosed [...] release of HIV test results or diagnoses. [id number] Encounter Details Date Type Department Care Team (Latest Contact Info) Description 10/20/2024 9:10 AM EDT - 10/20/2024 11:59 PM EDT Hospital Encounter [facility] Radiology [address] [place] [address] System, Provider Not In Arrived Discharge Disposition: [...] Recorded In the past 12 months has [employer], gas, oil, or water [employer] threatened to shut off services in your [...] AM EDT 10/17/2024 naloxone (NARCAN) 4 mg/actuation [place] Apply 1 spray in one nostril if [...] 12/05/2024 8:01 AM EDT Hospital Encounter [facility] ENDOSCOPY [address] [place] [address] Chris Orosco MD [address] [place] [phone] 12/05/2024 8:01 AM EDT - 12/05/2024 8:31 AM EDT Surgery [facility] ENDOSCOPY [address] [place] [address] Chris Orosco MD [address] [place] [phone] EGD Scheduled Procedures Name Priority Associated Diagnoses [...] documented as of this encounter Care Teams Lunch Cook Relationship Specialty Start Date End Date Enedina Mcguire NP [address] [place] [address] PCP - General Internal Medicine 10/05/24 documented as of this encounter
--- OUTSIDE RECORDS SUMMARY | 2024-10-20 09:10 | XMS_ITS | Encounter Summary ---
Author Organization [facility] Address [facility] [place] [address] Care Team Providers Care Resident Surgeon Name Role Phone Enedina Mcguire NP Primary Care Provider [phone] Source Comments This information has been disclosed [...] release of HIV test results or diagnoses. [id number] Encounter Details Date Type Department Care Team (Latest Contact Info) Description 10/20/2024 9:10 AM EDT - 10/20/2024 11:59 PM EDT Hospital Encounter [facility] Radiology [address] [place] [address] System, Provider Not In Arrived Discharge Disposition: [...] Recorded In the past 12 months has [employer], gas, oil, or water [employer] threatened to shut off services in your [...] AM EDT 10/17/2024 naloxone (NARCAN) 4 mg/actuation [place] Apply 1 spray in one nostril if [...] Description 12/05/2024 8:01 AM EDT Hospital Encounter [facility] ENDOSCOPY [address] [place] [address] Chris Orosco MD [address] [place] [phone] 12/05/2024 8:01 AM EDT - 12/05/2024 8:31 AM EDT Surgery [facility] ENDOSCOPY [address] [place] [address] Chris Orosco MD [address] [place] [phone] EGD Scheduled Procedures Name Priority Associated Diagnoses [...] documented as of this encounter Care Teams Resident Surgeon Relationship Specialty Start Date End Date Enedina Mcguire NP [address] [place] [address] PCP - General Internal Medicine 10/05/24 documented as of this encounter
--- OUTSIDE RECORDS SUMMARY | 2024-10-20 09:10 | XMS_ITS | Encounter Summary ---
Author Organization [facility] Address [facility] [place] [address] Care Team Providers Care C 40A Crew Chief Name Role Phone Enedina Mcguire NP Primary Care Provider [phone] Source Comments This information has been disclosed [...] release of HIV test results or diagnoses. [id number] Encounter Details Date Type Department Care Team (Latest Contact Info) Description 10/20/2024 9:10 AM EDT - 10/20/2024 11:59 PM EDT Hospital Encounter [facility] Radiology [address] [place] [address] System, Provider Not In Arrived Discharge Disposition: [...] Recorded In the past 12 months has [employer], gas, oil, or water [employer] threatened to shut off services in your [...] AM EDT 10/17/2024 naloxone (NARCAN) 4 mg/actuation [place] Apply 1 spray in one nostril if [...] Description 12/05/2024 8:01 AM EDT Hospital Encounter [facility] ENDOSCOPY [address] [place] [address] Chris Orosco MD [address] [place] [phone] 12/05/2024 8:01 AM EDT - 12/05/2024 8:31 AM EDT Surgery [facility] ENDOSCOPY [address] [place] [address] Chris Orosco MD [address] [place] [address] [phone] EGD Scheduled Procedures Name Priority Associated Diagnoses [...] documented as of this encounter Care Teams C 40A Crew Chief Relationship Specialty Start Date End Date Enedina Mcguire NP [address] [place] [address] PCP - General Internal Medicine 10/05/24 documented as of this encounter
--- OUTSIDE RECORDS SUMMARY | 2024-10-20 09:10 | XMS_ITS | Encounter Summary ---
Author Organization [facility] Address [facility] [place] [address] Care Team Providers Care Top Steep Tender Name Role Phone Enedina Mcguire NP Primary Care Provider [phone] Source Comments This information has been disclosed [...] release of HIV test results or diagnoses. [id number] Encounter Details Date Type Department Care Team (Latest Contact Info) Description 10/20/2024 9:10 AM EDT - 10/20/2024 11:59 PM EDT Hospital Encounter [facility] Radiology [address] [place] [address] System, Provider Not In Arrived Discharge Disposition: [...] Recorded In the past 12 months has [employer], gas, oil, or water [employer] threatened to shut off services in your [...] any time in the past 12 m [facility], were you homeless or living in [...] AM EDT 10/17/2024 naloxone (NARCAN) 4 mg/actuation [place] Apply 1 spray in one nostril if [...] 12/05/2024 8:01 AM EDT Hospital Encounter [facility] ENDOSCOPY [address] [place] [address] Chris Orosco MD [address] [place] [phone] 12/05/2024 8:01 AM EDT - 12/05/2024 8:31 AM EDT Surgery [facility] ENDOSCOPY [address] [place] [address] Chris Orosco MD [address] [place] [phone] EGD Scheduled Procedures Name Priority Associated Diagnoses [...] documented as of this encounter Care Teams Top Steep Tender Relationship Specialty Start Date End Date Enedina Mcguire NP [address] [place] [address] PCP - General Internal Medicine 10/05/24 documented as of this encounter
--- OUTSIDE RECORDS SUMMARY | 2024-10-21 07:49 | XMS_ITS | Encounter Summary ---
Author Organization Healthcare Address [address] [id number] Care Team Providers Care Industry Analyst Name Role Phone Jony Conde MD Primary Care Provider [phone] Lj Tapia HOMICIDE DETECTIVE Unavailable [phone] Enedina Mcguire HOMICIDE DETECTIVE Primary Care Provider + Nuria Fall ED TRANSPORTER Unavailable Unavaila ble Encounter Details Date Type Department Care Team (Late st Contact Info) Description 07/04/2022 Orders Only External Location [address] [place] [address] Presley Montes De Oca MD [address] [place] [address] Social History Tobacco Use Types Packs/Day Years [...] 12/01/2024 2:20 PM EDT Office Visit [facility] Nephrology, Bone & Mineral Metabolism [address] [facility], [address] [place] [address] Yovanny Curran MD [address] [facility] [address] [place] [address] 01/08/2025 3:20 PM EDT Office Visit [facility] [place] [address] [facility], [address] [place] [address] Vincent Braga MD [address] [place] [address] documented as of this encounter [...] on filedocumented in this encounter Care Teams Industry Analyst Relationship Specialty Start Date End Date Jony Conde MD [address] [place] [address] [address] [place] [address] PCP - General 07/18/22 12/03/22 Enedina Mcguire APRN [address] [place] [address] PCP - General 12/04/22 Lj Tapia APRN [address] [place] [address] Referring Physician Gastroenterology 07/18/22 Nuria Fall LPN [facility] TCM Nurse 07/24/24 08/23/24 documented as of this encounter
--- OUTSIDE RECORDS SUMMARY | 2024-10-21 07:49 | XMS_ITS | Encounter Summary ---
Author Organization Healthcare Address [address] [place] [address] Care Team Providers Care Glassware Defect Repairer Name Role Phone [place] EstatesEdgar dixonmelanie Nova APRN Unavailable [phone] Enedina Mcguire APRN Primary Care Provider + [...] How often do you attend chur or latter-day services? Patient unable to answer 07/14/2024 Do you belong to any clubs o r organizations such as sabianism groups, unions, fraternal or athletic groups, or [...] Recorded Patient Health Questionnaire-2 Score 0 12/27/2023 [facility] - Occupational Stress Questionnaire Answer Date [...] in a residential (including now)? No 11/19/2023 Housing Stability Vital [...] drink first t deborah in the morning (EYE-POUNDMASTER) to steady your nerves or to get [...] 12/01/2024 2:20 PM EDT Office Visit [facility] [place] Nephrology, Bone & Mineral Metabolism [address] [facility], [address] [place] [address] Yovanny Curran MD [address] [facility] [address] [place] [address] 01/08/2025 3:20 PM EDT Office Visit [facility] [place] [address] [facility], [address] [place] [address] Vincent Braga MD [address] [facility] [address] [place] [address] documented as of this encounter Visit Diagnoses Not on filedocumented in this encounter Additional Health Concerns Assessment Noted Time A fall risk assessment has been complete d for the patient 03/19/2024 1:51 PM EST A Body Mass Index follow-up plan has been documented for the patient 07/23/2024 4:15 PM EDT documented as of this encounter Care Teams Glassware Defect Repairer Relationship Specialty Start Date End Date Enedina Mcguire APRN [address] [place] [address] PCP - General 12/04/22 Lj Tapia APRN [address] [place] [address] Referring Physician Gastroenterology 07/18/22 documented as of this encounter
--- OUTSIDE RECORDS SUMMARY | 2024-10-21 07:49 | XMS_ITS | Encounter Summary ---
Author Organization Healthcare Address [address] [place] [address] Care Team Providers Care Soils Analyst Name Role Phone Lj Tapia RELIGIOUS EDUCATION DIRECTOR Unavailable [phone] Enedina Mcguire RELIGIOUS EDUCATION DIRECTOR Primary Care Provider + Nuria Fall CAR PRE COOLER Unavailable Unavaila ble Encounter Details Date Type Department Care Team (Late st Contact Info) Description 07/23/2024 Telephone [facility] [address] [place] [address] Dennis Velázquez, PharmD [place] [address] Social History Tobacco Use Types Packs/Day Years [...] How often do you attend [facility] or anabaptist services? Patient unable to answer 07/14/2024 Do you belong to any clubs o r organizations such as christian groups, unions, [employer] or athletic groups, or school groups? Patient [...] Recorded Patient Health Questionnaire-2 Score 0 12/27/2023 [facility] - Occupational Stress Questionnaire [...] in the past 12 m [facility], were you homeless or [...] drink first t deborah in the morning (EYE-GLUTEN SETTLING TENDER) to steady your nerves or to get [...] PM EDT Office Visit [facility] Nephrology, Bone & Mineral Metabolism [address], [address] [place] [address] Yovanny Curran MD [address] [place] [address] 01/08/2025 3:20 PM EDT Office Visit [facility] [place] [address], [address] [place] [address] Vincent Braga MD [address] [place] [address] [place] [address] documented as of this encounter Visit Diagnoses Not on filedocumented in this encounter Additional Health Concerns Assessment Noted Time A fall risk assessment has been complete d for the patient 03/19/2024 1:51 PM EST A Body Mass Index follow-up plan has been documented for the patient 07/23/2024 4:15 PM EDT documented as of this encounter Care Teams Soils Analyst Relationship Specialty Start Date End Date Enedina Mcguire APRN [address] [place] [address] PCP - General 12/04/22 Lj Tapia APRN [address] [place] [address] Referring Physician Gastroenterology 07/18/22 Nuria Fall LPN [facility] TCM Nurse 07/24/24 08/23/24 documented as of this encounter
--- OUTSIDE RECORDS SUMMARY | 2024-10-21 07:49 | XMS_ITS | Encounter Summary ---
Author Organization Healthcare Address [address] [id number] Care Team Providers Care Box Truck Washer Name Role Phone Jony Conde MD Primary Care Provider [phone] Lj Tapia GLASS SMOOTHER Unavailable [phone] Enedina Mcguire GLASS SMOOTHER Primary Care Provider + Nuria Fall FIRST SAMPLER Unavailable Unavaila ble Encounter Details Date Type Department Care Team (Late st Contact Info) Description 07/04/2022 Orders Only External Location [address] [place] [address] Presley Montes De Oca MD [address] [place] [address] Social History Tobacco Use Types Packs/Day Years [...] Nephrology, Bone & Mineral Metabolism [address] [facility], [address] [place] [address] Yovanny Curran MD [address] [facility] [address] [place] [address] 01/08/2025 3:20 PM EDT Office Visit [facility] [place] [address] [facility], [address] [place] [address] Vincent Braga MD [address] [place] [address] documented as of this encounter [...] on filedocumented in this encounter Care Teams Box Truck Washer Relationship Specialty Start Date End Date Jony Conde MD [address] [place] [address] [address] [place] [address] PCP - General 07/18/22 12/03/22 Enedina Mcguire APRN [address] [place], [place] [address] PCP - General 12/04/22 Lj Tapia APRN [address] [place] [address] Referring Physician Gastroenterology 07/18/22 Nuria Fall LPN [facility] TCM Nurse 07/24/24 08/23/24 documented as of this encounter
--- OUTSIDE RECORDS SUMMARY | 2024-10-21 07:49 | XMS_ITS | Encounter Summary ---
Author Organization Healthcare Address [address] [id number] Care Team Providers Care Deburr Operator Name Role Phone Jony Conde MD Primary Care Provider [phone] Lj Tapia WATCH INSPECTOR FINAL MOVEMENT Unavailable [phone] Enedina Mcguire WATCH INSPECTOR FINAL MOVEMENT Primary Care Provider + Nuria Fall DIGITAL COORDINATOR Unavailable Unavaila ble Encounter Details Date Type Department Care Team (Late st Contact Info) Description 07/03/2022 Orders Only External Location [address] [place] [address] Presley Montes De Oca MD [address] [place] [address] Social History Tobacco Use Types Packs/Day Years [...] PM EDT Office Visit [facility] Nephrology, Bone & Mineral Metabolism [address] [facility], [address] [place] [address] Yovanny Curran MD [address] [facility] [address] [place] [address] 01/08/2025 3:20 PM EDT Office Visit [facility] [place] [address] [facility], [address] [place] [address] Vincent Braga MD [address] [place] [address] documented as of this encounter [...] on filedocumented in this encounter Care Teams Deburr Operator Relationship Specialty Start Date End Date Jony Conde MD [address] [place] [address] [address] [place] [address] PCP - General 07/18/22 12/03/22 Enedina Mcguire APRN [address] [place] [address] PCP - General 12/04/22 Lj Tapia APRN [address] [place] [address] Referring Physician Gastroenterology 07/18/22 Nuria Fall LPN [facility] TCM Nurse 07/24/24 08/23/24 documented as of this encounter
--- OUTSIDE RECORDS SUMMARY | 2024-10-21 07:49 | XMS_ITS | Encounter Summary ---
Author Organization [facility] Address [address] [place] [address] Care Team Providers Care Hat Forming Machine Operator Name Role Phone ReginaLj dixon Rohini RICKS Unavailable [phone] Enedina Mcguire APRN Primary Care Provider + [...] How often do you attend chur or mormonism services? Patient unable to answer 07/14/2024 Do you belong to any clubs o r organizations such as synagogue groups, unions, fraternal or athletic groups, or [...] Recorded Patient Health Questionnaire-2 Score 2 09/29/2024 [facility] - Occupational [...] place to sleep or slept in a penitentiary (including now)? No 11/19/2023 PHQ-9 Answer Date [...] living in a penitentiary (including now)? 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-FARM MANAGEMENT SUPERVISOR) to steady your nerves or to get [...] hopeless Several days 09/29/2024 1:47 PM EDT Jnaice Bryant Patient Health Questionnaire -2 Score 2 [...] Description 12/01/2024 2:20 PM EDT Office Visit [facility] Nephrology, Bone & Mineral Metabolism [address] [facility], [address] [place] [address] Yovanny Curran MD [address] [place] [address] 01/08/2025 3:20 PM EDT Office Visit [facility] [place] [address] [facility], [address] [place] [address] Vincent Braga MD [address] [place] [address] [place] [address] documented as of this encounter [...] documented as of this encounter Care Teams Hat Forming Machine Operator Relationship Specialty Start Date End Date Enedina Mcguire APRN [address] [place] [address] PCP - General 12/04/22 Lj Tapia APRN [address] [place] [address] Referring Physician Gastroenterology 07/18/22 documented as of this encounter
--- OUTSIDE RECORDS SUMMARY | 2024-10-21 07:49 | XMS_ITS | Encounter Summary ---
Author Organization [facility] Address [address] [place] [address] Care Team Providers Care Mathematical Statistician Name Role Phone Enedina Mcguire NP Primary Care Provider [phone] Source Comments This information has been disclosed [...] release of HIV test results or diagnoses. [id number] Encounter Details Date Type Department Care Team (Late st Contact Info) Description 10/17/2024 Chart Note [facility] Kidney Transplant at [address] [place] [address] Anny Cote RN Social History Tobacco Use Types Packs/Day Years Used Date Smoking Tobacco: Former Cigarettes Smokeless Tobacco: Current Alcohol Use Standard Drinks/Week Comments Yes 0 (1 standard drink = 0.6 oz pure alcohol) History of alcohol abuse, reports no use in 3 week- typically endorses use as 4 glasses of wine a days Utilities Answer Date Recorded In the past 12 months has [employer], gas, oil, or water [employer] threatened to shut off services in your [...] any time in the past 12 m [facility], were you homeless or living [...] 12/05/2024 8:01 AM EDT Hospital Encounter [facility] ENDOSCOPY [address] [place] [address] Chris Orosco MD [address] [place] [phone] 12/05/2024 8:01 AM EDT - 12/05/2024 8:31 AM EDT Surgery [facility] ENDOSCOPY [address] [place] [address] Chris Orosco MD [address] [place] [phone] EGD Scheduled Procedures Name Priority Associated Diagnoses Date/Ti me EGD Cirrhosis of liver with ascites, unspecified hepatic cirrhosis type ([facility]) 12/05/2024 8:01 AM EDT documented as of this encounter Visit Diagnoses Not on filedocumented in this encounter Additional Health Concerns Infection Onset Date Last Indicated Resolved Time C. difficile 09/09/2024 09/09/2024 Assessment Noted Time PHQ-9 Depression Total Score: 17 025 11:00 AM EDT documented as of this encounter Care Teams Mathematical Statistician Relationship Specialty Start Date End Date Enedina Mcguire NP [address] [place] [address] PCP - General Internal Medicine 10/05/24 documented as of this encounter
--- OUTSIDE RECORDS SUMMARY | 2024-10-21 07:49 | XMS_ITS | Clinical Summary ---
Author Organization Healthcare Address [address] [place] [address] Care Team Providers Care Supervisor Core Drilling Name Role Phone Lj Tapia Rohini RICKS Unavailable Enedina Mcguire APRN Primary Care Provider [...] 09/29/2024 2:20 PM EDT Office Visit Professional [facility] Nephrology, Bone & Mineral Metabolism [address], [address] [place] [address] Yovanny Bob MD NADIYA (acute kidney injury) ([facility]) (Primary Dx); Portal hypertension (CMS/HCC); Secondary esophageal varices with bleeding (CMS/HCC) 09/29/2024 Travel 09/25/2024 Telephone Professional [facility] Nephrology, Bone & Mineral Metabolism [address], [address] [place] [address] Chelsy Villanueva 08/25/2024 2:20 PM EDT Office Visit Professional [facility] Nephrology, Bone & Mineral Metabolism [address], [address] [place] [address] Yovanny Bob MD NADIYA (acute kidney injury) ([facility]) (Primary Dx) 08/25/2024 Travel 08/24/2024 Travel 08/21/2024 Telephone Professional [facility] Nephrology, Bone & Mineral Metabolism [address], [address] [place] [address] Chelsy Villanueva 07/30/2024 Telephone Professional [facility] Nephrology, Bone & Mineral Metabolism [address], [address] [place] [address] Chelsy Villanueva 07/30/2024 Telephone [facility] [address], [address] [place] [address] Mandy Morales RN 07/25/2024 Orders Only [facility] [address] [place] [address] Joseph Gonzales MD 07/25/2024 Telephone Professional [facility] Nephrology, Bone & Mineral Metabolism [address], [address] [place] [address] Chelsy Villanueva 07/24/2024 Telephone Professional [facility] Nephrology, Bone & Mineral Metabolism [address], [address] [place] [address] Chelsy Villanueva 07/24/2024 Patient Outreach [facility] [address], [address] [place] [address] Nuria Fall, VERONICA TCM Call 07/24/2024 Telephone [facility] Nephrology, Bone & Mineral Metabolism [address], [address] [place] [address] Yovanny Bob MD HCN - Patient Message 07/23/2024 Telephone [facility] [address] [place] [address] Dennis Velázquez, PharmD 07/22/2024 Telephone [facility] [address], [address] [place] [address] Mandy Morales RN from Last 3 Months Immunizations Immunization Administration [...] How often do you attend chur or anabaptism services? Patient unable to answer 07/14/2024 Do you belong to any clubs o r organizations such as rastafari groups, unions, fraternal or athletic groups, or [...] Recorded Patient Health Questionnaire-2 Score 2 09/29/2024 [facility] - Occupational Stress Questionnaire Answer Date [...] place to sleep or slept in a correction (including now)? No 11/19/2023 PHQ-9 Answer Date [...] living in a correction (including now)? 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) to steady your nerves or to get [...] 12/01/2024 2:20 PM EDT Office Visit Professional [facility] Nephrology, Bone & Mineral Metabolism [address] [place] [address] Yovanny Curran MD [address] [place] [address] 01/08/2025 3:20 PM EDT Office Visit [facility] [address], [address] [place] [address] Vincent Braga MD [address] [place] [address] Health Maintenance Due Date Last Done Comments [facility]-/Child/Adol SDOH Screenings 1983 HPV Vaccines (1 - [...] 2 - 13+ 2-dose series) 10/11/2010 09/13/2010 [id number] Vaccine (4 - 2023- season) 2024 03/17/2021, 07/25/2020, 06/27/2020 [facility]- SDOH [...] this topic Medical Devices Implanted Type Area Bulk System Operator Device Identifier Shelf Expiration Date Model / Serial / Lot Concerto [place] Coil-07/03/2022 Implanted:06/15 by Timmy Brunner MD (Quantity not on file) Coil Abdomen Description:Multiple Coil Co ncerto Pgla [place] Detach COILS implanted on 07/03/2022 by Timmy Brunner MD at [facility]--info can be found in Care Everywhere for [facility] as of 11/15/23 Dona Coil-07/03/2022 Implanted:06/15 by Timmy Brunner MD (Quantity not on file) Coil Abdomen [employer] Description:Coil Emb Dona 3.7/Implanted: Qty: 1 on 07/03/2022 by Timmy Brunner MD at [facility] Plate Plate N/A: Neck Plug Vasc Anton Emb Amplatzer Implanted:06/15 by Timmy Brunner MD (Quantity not on file) Plug Other Vein / / [id number] Description:Plug Vasc Anton Em b Ampltz .027 [id number] - [id number] Implanted: Qty: 1 on 07/03/2022 by Timmy Brunner MD at [facility] Stent Gastro Panc 5fr 5cm - [id number] Implanted:Qty: 1 on 11/20/2023 by Devang Mcghee RN at [facility] Pancreas [id number] 08/13/2026 [id number] / / [id number] Procedures Procedure Name Priority Date/Time Associated Diagnosis [...] PANEL, PLASMA Routine 07/21/2024 6:12 AM EDT HEPATITIS C ANTIBODY W/REFLEX TO HCV QUANT PCR STAT 07/14/2024 4:31 PM EST HIV 1/2 ANTIBODY/ANTIGEN SCREEN WITH REFLEX TO HIV I/II DIFFERENTIATION STAT 07/14/2024 4:31 PM EST from Last 3 Months or Most Recently Relevant to Health Maintenance Results * (ABNORMAL) Prothrombin Time/INR (07/23/2024 2:32 AM EDT) Only the most recent of3 resultswithin the time period is included. Prothrombin Time 19.2(H) 12.0 - 14.3 sec 07/23/2024 2:57 AM EDT [facility] INR 1.6(H) 0.9 - 1.1 07/23/2024 2:57 AM EDT [facility] Blood Venous blood specimen / [...] INR 2.5 to 3.5 Prevention of recurrent CA INR 2.5 to 3.5 us Joseph Gonzales MD LAB BLOOD ORDERABLES Final Resu lt [facility] [address] [place] [address] * (ABNORMAL) CBC and Differential (07/23/2024 2:32 AM EDT) [facility] WBC Count 7.89 3.70 - 10.30 10*3/uL LAB HEMATOLOGY METHOD 07/23/2024 3:00 AM EDT [facility] RBC Count 4.07(L) 4.60 - 6.10 10*6/uL LAB HEMATOLOGY METHOD 07/23/2024 3:00 AM EDT [facility] HGB 13.3(L) 13.7 - 17.5 g/dL LAB HEMATOLOGY METHOD 07/23/2024 3:00 AM EDT [facility] HCT 37.7(L) 40.0 - 51.0 % LAB HEMATOLOGY METHOD 07/23/2024 3:00 AM EDT [facility] Platelet Count 69(L) 155 - 369 10*3/uL LAB HEMATOLOGY METHOD 07/23/2024 3:00 AM EDT [facility] MCV 93 79 - 98 fL LAB HEMATOLOGY METHOD 07/23/2024 3:00 AM EDT [facility] MCH 32.7(H) 26.0 - 32.0 pg LAB HEMATOLOGY METHOD 07/23/2024 3:00 AM EDT [facility] MCHC 35.3 30.7 - 35.5 g/dL LAB HEMATOLOGY METHOD 07/23/2024 3:00 AM EDT [facility] RDW 23.7(H) 11.5 - 14.5 % LAB HEMATOLOGY METHOD 07/23/2024 3:00 AM EDT [facility] MPV LAB HEMATOLOGY METHOD 07/23/2024 3:00 AM EDT [facility] Comment:Not Measured nRBC 0.0 <=0.0 per 100 WBCs LAB HEMATOLOGY METHOD 07/23/2024 3:00 AM EDT [facility] Differential Type Automated LAB HEMATOLOGY METHOD 07/23/2024 3:00 AM EDT [facility] Neutrophils % 79 % LAB HEMATOLOGY METHOD 07/23/2024 3:00 AM EDT [facility] Lymphocytes % 10 % LAB HEMATOLOGY METHOD 07/23/2024 3:00 AM EDT [facility] Monocytes % 8 % LAB HEMATOLOGY METHOD 07/23/2024 3:00 AM EDT [facility] Eosinophils % 1 % LAB HEMATOLOGY METHOD 07/23/2024 3:00 AM EDT [facility] Basophils % 1 % LAB HEMATOLOGY METHOD 07/23/2024 3:00 AM EDT [facility] Immature Granulocytes % 1 % LAB HEMATOLOGY METHOD 07/23/2024 3:00 AM EDT [facility] Neutrophils Absolute 6.19(H) 1.60 - 6.10 10*3/uL LAB HEMATOLOGY METHOD 07/23/2024 3:00 AM EDT [facility] Lymphocytes Absolute 0.80(L) 1.20 - 3.90 10*3/uL LAB HEMATOLOGY METHOD 07/23/2024 3:00 AM EDT [facility] Monocytes Absolute 0.66 0.30 - 0.90 10*3/uL LAB HEMATOLOGY METHOD 07/23/2024 3:00 AM EDT [facility] Eosinophils Absolute 0.10 0.00 - 0.50 10*3/uL LAB HEMATOLOGY METHOD 07/23/2024 3:00 AM EDT [facility] Basophils Absolute 0.10 0.00 - 0.10 10*3/uL LAB HEMATOLOGY METHOD 07/23/2024 3:00 AM EDT [facility] Immature Granulocytes Absolute 0.04 0.00 - 0.06 10*3/uL LAB HEMATOLOGY METHOD 07/23/2024 3:00 AM EDT [facility] Blood Venous blood specimen / Unknown Venipuncture / Unknown 07/23/2024 2:32 AM EDT 07/23/2024 2:45 AM EDT Narrative [facility] - 07/23/2024 3:00 AM EDT Therapeutic decision making should be based on absolute values, rather than percentages. us Joseph Gonzales MD LAB BLOOD ORDERABLES Final Resu lt [facility] [address] [place] [address] * (ABNORMAL) Comprehensive metabolic panel (07/23/2024 2:32 AM EDT) Only the most recent of3 resultswithin the time period is included. Glucose, Plasma 143(H) 74 - 99 mg/dL 07/23/2024 3:20 AM EDT [facility] Comment: Icteric specimen. Result may be affected, interpret result in the context of the patient's condition and other laboratory results. BUN, Plasma 29(H) 7 - 21 mg/dL 07/23/2024 3:20 AM EDT [facility] Comment: Icteric specimen. Result may be affected, interpret result in the context of the patient's condition and other laboratory results. Creatinine, Plasma 1.54(H) 0.70 - 1.20 mg/dL 07/23/2024 3:20 AM [facility] Comment: Icteric specimen. Result may be falsely decreased. Interpret result in the context of the patient's condition and other laboratory results. BUN/Creatinine Ratio 19 07/23/2024 3:20 AM [facility] Sodium, Plasma 133(L) 136 - 145 mmol/L 07/23/2024 3:20 AM T [facility] Comment: Icteric specimen. Result may be affected, interpret result in the context of the patient's condition and other laboratory results. Potassium, Plasma 3.3(L) 3.6 - 4.9 mmol/L 07/23/2024 3:20 AM [facility] Comment: Icteric specimen. Result may be affected, interpret result in the context of the patient's condition and other laboratory results. Chloride, Plasma 104 97 - 107 mmol/L 07/23/2024 3:20 AM [facility] Comment: Icteric specimen. Result may be affected, interpret result in the context of the patient's condition and other laboratory results. CO2, Plasma 16(L) 22 - 29 mmol/L 07/23/2024 3:20 AM [facility] Comment: Icteric specimen. Result may be affected, interpret result in the context of the patient's condition and other laboratory results. Anion Gap 13 6 - 16 mmol/L 07/23/2024 3:20 AM [facility] Total Calcium, Plasma 9.0 8.9 - 10.2 mg/dL 07/23/2024 3:20 AM T [facility] Comment: Icteric specimen. Result may be affected, interpret result in the context of the patient's condition and other laboratory results. Total Protein 5.2(L) 6.3 - 7.9 g/dL 07/23/2024 3:20 AM [facility] Comment: Icteric specimen. Result may be affected, interpret result in the context of the patient's condition and other laboratory results. Albumin, Plasma 3.8 3.5 - 5.2 g/dL 07/23/2024 3:20 AM T [facility] Comment: Icteric specimen. Result may be affected, interpret result in the context of the patient's condition and other laboratory results. AST, Plasma 106(H) 10 - 50 U/L 07/23/2024 3:20 AM EDT [facility] Comment: Icteric specimen. Result may be affected, interpret result in the context of the patient's condition and other laboratory results. ALT, Plasma 64(H) 10 - 50 U/L 07/23/2024 3:20 AM EDT [facility] Comment: Icteric specimen. Result may be affected, interpret result in the context of the patient's condition and other laboratory results. Alkaline Phosphatase, Plasma 98 40 - 115 U/L 07/23/2024 3:20 AM EDT [facility] Comment: Icteric specimen. Result may be affected, interpret result in the context of the patient's condition and other laboratory results. Total Bilirubin, Plasma 48.8(H) 0.2 - 1.1 mg/dL 07/23/2024 3:20 AM EDT [facility] eGFRcr 57.8 mL/min/1.7 3m*2 07/23/2024 3:20 AM EDT [facility] Comment:Reported eGFRcr in m L/min/1.73m2 is based the CKD-EPI 2020 equation that does not use a race coefficient. Blood Venous blood specimen / Unknown Venipuncture / Unknown 07/23/2024 2:32 AM EDT 07/23/2024 2:45 AM EDT Joseph Gonzales MD LAB BLOOD ORDERABLES Final Resu lt [facility] [address] [place] [address] * (ABNORMAL) POCT glucose meter (07/22/2024 12:10 PM EDT) [facility] POCT Glucose 120(H) 74 - 99 mg/dL 07/22/2024 12:12 PM EDT [facility] Comment:Accuracy of a glucos e result [...] Comment 07/22/2024 12:12 PM EDT [facility] Child Specialist ID Cristo Palacio 12:12 PM EDT [facility] Device ID [id number] 07/22/2024 12:12 PM EDT [facility] Specimen Type POC Capillary 07/22/2024 12:12 PM EDT [facility] Blood Capillary blood specimen / Unknown 07/22/2024 12:10 PM EDT 07/22/2024 12:12 PM EDT us Joseph Gonzales MD LAB POINT OF CARE TE ST DOCKED DEVICE UNSOLICITED RESULTS Final Result Performing Organization Address City/State/[facility] Co de Phone Number [facility] [address] [place] [address] * (ABNORMAL) CBC W/O Differential (07/22/2024 2:29 AM EDT) Only the most recent of2 resultswithin the time period is included. WBC Count 8.64 3.70 - 10.30 10*3/uL LAB HEMATOLOGY METHOD 07/22/2024 3:15 AM EDT [facility] RBC Count 4.44(L) 4.60 - 6.10 10*6/uL LAB HEMATOLOGY METHOD 07/22/2024 3:15 AM EDT [facility] HGB 14.5 13.7 - 17.5 g/dL LAB HEMATOLOGY METHOD 07/22/2024 3:15 AM EDT [facility] HCT 42.5 40.0 - 51.0 % LAB HEMATOLOGY METHOD 07/22/2024 3:15 AM EDT [facility] Platelet Count 71(L) 155 - 369 10*3/uL LAB HEMATOLOGY METHOD 07/22/2024 3:15 AM EDT [facility] MCV 96 79 - 98 fL LAB HEMATOLOGY METHOD 07/22/2024 3:15 AM EDT [facility] MCH 32.7(H) 26.0 - 32.0 pg LAB HEMATOLOGY METHOD 07/22/2024 3:15 AM EDT [facility] MCHC 34.1 30.7 - 35.5 g/dL LAB HEMATOLOGY METHOD 07/22/2024 3:15 AM EDT [facility] RDW 24.0(H) 11.5 - 14.5 % LAB HEMATOLOGY METHOD 07/22/2024 3:15 AM EDT [facility] MPV 10.5 8.8 - 12.5 fL LAB HEMATOLOGY METHOD 07/22/2024 3:15 AM EDT [facility] nRBC 0.0 <=0.0 per 100 WBCs LAB HEMATOLOGY METHOD 07/22/2024 3:15 AM EDT [facility] Blood Venous blood specimen / Unknown Venipuncture / Unknown 07/22/2024 2:29 AM EDT 07/22/2024 3:03 AM EDT Mita Schmidt MD LAB BLOOD ORDERABLES Final Resul t Performing Organization Address City/[facility] Co de Phone Number [facility] [address] [place] [address] * HIV 1 & 2 Antibody/Antigen Screen (07/14/2024 4:31 PM EST) HIV 1 & 2 Antibody/Antigen Screen Non Reactive Non Reactive 07/14/2024 5:31 PM EST [facility] Comment:Screening for HIV 1 & 2 antibodies, and P24 antigen is NONREACTIVE. No confirmatory testing is required. Blood Venous blood specimen / Unknown Venipuncture / Unknown 07/14/2024 4:31 PM EST 07/14/2024 4:56 PM EST Laureano Salinas APRN, DNP LAB BLOOD ORDERA BLES Final Result [facility] [address] [place] [address] * Hepatitis C Antibody (07/14/2024 4:31 PM EST) Hepatitis C Antibody Negative Negative 07/14/2024 5:27 PM EST [facility] Blood Venous blood specimen / Unknown Venipuncture / Unknown 07/14/2024 4:31 PM EST 07/14/2024 4:54 PM EST Christopher P Salinas [employer] ASSEMBLER, DNP LAB BLOOD ORDERA BLES Final Result [facility] [address] [place] [address] from Last 3 Months or Most Recently Relevant to Health Maintenance Insurance [facility] Advance Directives * Full Code (Latest Code Status on File) Date Activated Date Inactivated Comments 07/11/2024 11:04 PM 07/23/2024 6:27 PM Question Answer Comments Patient has decision-making capacity? Yes * Full Code Date Activated Date Inactivated Comments 11/14/2023 10:15 PM 11/27/2023 9:08 PM Question Answer Comments Patient has decision-making capacity? Yes Care Teams Supervisor Core Drilling Relationship Specialty Start Date End Date Enedina Mcguire APRN [address] [place] [address] PCP - General 12/04/22 Lj Tapia APRN [address] [place] [address] Referring Physician Gastroenterology 07/18/22
--- OUTSIDE RECORDS SUMMARY | 2024-10-21 07:49 | XMS_ITS ---
Author Organization [facility] Address [address] [place] [address] Care Team Providers Care Crate Maker Name Role Phone Lj Tapia APRN Unavailable [phone] Enedina Mcguire APRN Primary Care Provider + Transitional Care Management Status:Closed (Closed) Start date:07/24/2024 Enrollment date:07/24/2024 Enrollment reason:Identified using hospital discharge data End date:08/23/2024 Close reason:Patient graduated Overview This episode type is for outpatient care managers enrolling patients in the [facility] Transitional Care Management program. Continued Care and Services Coordination
--- OUTSIDE RECORDS SUMMARY | 2024-10-21 07:49 | XMS_ITS | Encounter Summary ---
Author Organization Healthcare Address [address] [place] [address] Care Team Providers Care Shovel Loader Operator Name Role Phone Jony Conde MD Primary Care Provider [phone] Lj Tapia BINDERY MANAGER Unavailable [phone] Enedina Mcguire BINDERY MANAGER Primary Care Provider + Nuria Fall OPERATIONS SUPPORT REPRESENTATIVE Unavailable Unavaila ble Encounter Details Date Type Department Care Team (Late Contact Info) Description 07/02/2022 Orders Only External Location [address] [place] [phone] Provider, External Social History Tobacco Use Types [...] Description 12/01/2024 2:20 PM EDT Office Visit [facility] Nephrology, Bone & Mineral Metabolism [address] [place] [address] Yovanny Curran MD [address] [place] [address] 01/08/2025 3:20 PM EDT Office Visit [facility] [address] , [address] [place] [address] Vincent Braga MD [address] [place] [phone] documented as of this encounter Procedures Procedure [...] on filedocumented in this encounter Care Teams Shovel Loader Operator Relationship Specialty Start Date End Date Jony Conde MD [address] [place] [address] [address] [place] [address] PCP - General 07/18/22 12/03/22 Enedina Mcguire APRN [address] [place] [address] PCP - General 12/04/22 Lj Tapia APRN [address] [place] [address] Referring Physician Gastroenterology 07/18/22 Nuria Fall LPN [facility] TCM Nurse 07/24/24 08/23/24 documented as of this encounter
--- OUTSIDE RECORDS SUMMARY | 2024-10-21 07:49 | XMS_ITS | Encounter Summary ---
Author Organization [facility] Address [address] [place] [address] Care Team Providers Care Manager Of Drilling Name Role Phone Enedina Mcguire NP Primary Care Provider [phone] Source Comments This information has been disclosed [...] release of HIV test results or diagnoses. [id number] Encounter Details Date Type Department Care Team (Late st Contact Info) Description 10/17/2024 Chart Note [facility] Kidney Transplant at [address] [place] [phone] Anny Cote, RN Copy of HLA report scanned into the media tab. Will follow up on GFR Social History Tobacco Use Types Packs/Day Years Used Date Smoking Tobacco: Former Cigarettes Smokeless Tobacco: Current Alcohol Use Standard Drinks/Week Comments Yes 0 (1 standard drink = 0.6 oz pure alcohol) History of alcohol abuse, reports no use in 3 week- typically endorses use as 4 glasses of wine a days Utilities Answer Date Recorded In the past 12 months has e [employer], gas, oil, or water [employer] threatened to shut off services in your [...] in the past 12 m [facility], were you homeless or living in a [...] Progress Notes * Anny Cote RN - 10/17/2024 3:54 PM EDT Copy of HLA report scanned into the media tab. Will follow up on GFR documented in this encounter Plan of Treatment Upcoming Encounters Date Type Department Care Team (Late st Contact Info) Description 12/05/2024 8:01 AM EDT Hospital Encounter [facility] ENDOSCOPY [address] [place] [address] Chris Orosco MD [address] [place] [phone] 12/05/2024 8:01 AM EDT - 12/05/2024 8:31 AM EDT Surgery [facility] ENDOSCOPY [address] [place] [address] Chris Orosco MD [address] [place] [phone] EGD Scheduled Procedures Name Priority Associated Diagnoses Date/Ti me EGD Cirrhosis of liver with ascites, unspecified hepatic cirrhosis type ([facility]) 12/05/2024 8:01 AM EDT documented as of this encounter Visit Diagnoses Not on filedocumented in this encounter Additional Health Concerns Infection Onset Date Last Indicated Resolved Time C. difficile 09/09/2024 09/09/2024 Assessment Noted Time PHQ-9 Depression Total Score: 17 05//2 025 11:00 AM EDT documented as of this encounter Care Teams Manager Of Drilling Relationship Specialty Start Date End Date Enedina Mcguire NP [address] [place] [phone] PCP - General Internal Medicine 10/05/24 documented as of this encounter
--- OUTSIDE RECORDS SUMMARY | 2024-10-21 07:49 | XMS_ITS | Encounter Summary ---
Author Organization Healthcare Address [address] [place] [address] Care Team Providers Care Brickmason Contractor Name Role Phone Regina, Lj Nova APRN Unavailable [phone] Enedina Mcguire APRN Primary Care Provider + Encounter Details Date Type Department Care Team ([facility] st Contact Info) Description 09/25/2024 Telephone [facility] Nephrology, Bone & Mineral Metabolism [address] [facility] [address], [address] [place] [address] Chelsy Villanueva Social History Tobacco [...] often do you attend chur ch or latter-day services? Patient unable to answer [...] Recorded Patient Health Questionnaire-2 Score 2 09/29/2024 [facility] - Occupational Stress Questionnaire Answer Date [...] place to sleep or slept in a halfway (including now)? No 11/19/2023 PHQ-9 Answer Date [...] living in a halfway (including now)? 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-STOCK HANGER) to steady your nerves or to get [...] 10:35 AM EDT Lab order faxed to [facility] at [phone] * Telephone Encounter - Shelby Rush - 09/30/2024 10:16 AM EDT Clinical Concern/Question Reason for Call: Per [facility] please fax patient's lab order to: [phone] Best contact number: Other: [phone] Optimal time of day to reach caller: [...] Description 12/01/2024 2:20 PM EDT Office Visit [facility] Nephrology, Bone & Mineral Metabolism [address], [address] [place] [address] Yovanny Curran MD [address] [place] [address] 01/08/2025 3:20 PM EDT Office Visit [facility] [address], [address] [place] [address] Vincent Braga MD [address] [place] [address] documented as of this encounter Visit Diagnoses Not on filedocumented in this encounter Additional Health Concerns Assessment Noted Time A fall risk assessment has been complete d for the patient 08/25/2024 2:07 PM EDT A Body Mass Index follow-up plan has been documented for the patient 08/29/2024 9:18 AM EDT documented as of this encounter Care Teams Brickmason Contractor Relationship Specialty Start Date End Date Enedina Mcguire APRN [address] [place] [address] PCP - General 12/04/22 Lj Tapia APRN [address] [place] [address] Referring Physician Gastroenterology 07/18/22 documented as of this encounter
--- OUTSIDE RECORDS SUMMARY | 2024-10-21 07:49 | XMS_ITS | Encounter Summary ---
Author Organization [facility] Address [address] [place] [address] Care Team Providers Care Orange Peel Operator Name Role Phone NolicLj dixon Rohini RICKS Unavailable [phone] Enedina Mcguire APRN Primary Care Provider + [...] How often do you attend chur or taoist services? Patient unable to answer [...] Recorded Patient Health Questionnaire-2 Score 0 12/27/2023 [facility] - Occupational Stress [...] in a halfway (including now)? No 11/19/2023 Housing Stability Vital [...] drink first t deborah in the morning (EYE-GIN CLERK) to steady your nerves or to get [...] Description 12/01/2024 2:20 PM EDT Office Visit [facility] Nephrology, Bone & Mineral Metabolism [address], [address] [place] [address] Yovanny Curran MD [address] [place] [address] 01/08/2025 3:20 PM EDT [facility] [address] [address] [facility] [address] [facility], [address] [place] [address] Vincent Braga MD [address] [address] [place] [address] documented as of this encounter Visit Diagnoses Not on filedocumented in this encounter Additional Health Concerns Assessment Noted Time A fall risk assessment has been complete d for the patient 08/25/2024 2:07 PM EDT A Body Mass Index follow-up plan has been documented for the patient 08/29/2024 9:18 AM EDT documented as of this encounter Care Teams Orange Peel Operator Relationship Specialty Start Date End Date Enedina Mcguire APRN [address] [place] [address] PCP - General 12/04/22 Lj Tapia APRN [address] [place] [address] Referring Physician Gastroenterology 07/18/22 documented as of this encounter
--- OUTSIDE RECORDS SUMMARY | 2024-10-21 07:50 | XMS_ITS | Encounter Summary ---
Author Organization [facility] Address [facility] [place] [address] Care Team Providers Care Perfume Maker Name Role Phone Enedina Mcguire NP Primary Care Provider [phone] Source Comments This information has been disclosed [...] release of HIV test results or diagnoses. [id number] Health Encounter Details Date Type Department Care Team (Late st Contact Info) Description 10/20/2024 Orders Only [facility] [address] [place] [address] Abdulkadir Gaspar MD [address] [facility] [address] [facility] [address] Social History Tobacco Use Types Packs/Day Years Used Date Smoking Tobacco: Former Cigarettes Smokeless Tobacco: Current Alcohol Use Standard Drinks/Week Comments Yes 0 (1 standard drink = 0.6 oz pure alcohol) History of alcohol abuse, reports no use in 3 week- typically endorses use as 4 glasses of wine a days Utilities Answer Date Recorded In the past 12 months has [employer], gas, oil, or water company threatened to [...] Encounter [facility] ENDOSCOPY [address] [place] [address] Chris Orosco MD [address] [place] [phone] 12/05/2024 8:01 AM EDT - 12/05/2024 8:31 AM EDT Surgery [facility] ENDOSCOPY [address] [place] [phone] Chris Orosco MD [address] [place] [phone] EGD Scheduled Procedures Name Priority Associated Diagnoses Date/Ti me EGD Cirrhosis of liver with ascites, unspecified hepatic cirrhosis type ([facility]) 12/05/2024 8:01 AM EDT documented as of this encounter Procedures Procedure Name Priority Date/Time Associated Diagnosis Comments HOX - HLA CROSSMATCH + DETAILED ANTIBODY Routine 10/20/2024 5:04 PM EDT HOX - ABO TYPING REPORT Routine 10/20/2024 5:03 PM EDT documented in this encounter Results * HOX - HLA CROSSMATCH + Detailed Antibody (10/20/2024 5:04 PM EDT) 10/20/2024 5:04 PM EDT us Abdulkadir Gaspar MD LAB BLOOD ORDERABLES Final Resul t [facility] [address] [facility] [place] [address] * Hox - ABO Typing Report (10/20/2024 5:03 PM EDT) 10/20/2024 5:03 PM EDT Abdulkadir Gaspar MD LAB BLOOD ORDERABLES Final Resul t [facility] [address] [place] [address] documented in this encounter Visit Diagnoses Not on filedocumented in this encounter Additional Health Concerns Infection Onset Date Last Indicated Resolved Time C. difficile 09/09/2024 09/09/2024 Assessment Noted Time PHQ-9 Depression Total Score: 17 025 11:00 AM EDT documented as of this encounter Care Teams Perfume Maker Relationship Specialty Start Date End Date Enedina Mcguire NP [address] [place] [address] PCP - General Internal Medicine 10/05/24 documented as of this encounter
--- OUTSIDE RECORDS SUMMARY | 2024-10-21 07:50 | XMS_ITS | Encounter Summary ---
Author Organization [facility] Address [address] [place] [address] Care Team Providers Care Put In Beat Adjuster Name Role Phone Enedina Mcguire NP Primary Care Provider [phone] Source Comments This information has been disclosed [...] release of HIV test results or diagnoses. [id number] Reason for Visit * Reason Comments Medication Refill Refill Request 1st A ttempt Encounter Details Date Type Department Care Team (Late st Contact Info) Description 10/20/2024 Refill [facility] Gastroenterology at [facility] Office [address] [place] [address] Gerri Peterson MD [address] [place] [address] Social History Tobacco Use Types Packs/Day Years Used Date Smoking Tobacco: Former Cigarettes Smokeless Tobacco: Current Alcohol Use Standard Drinks/Week Comments Yes 0 (1 standard drink = 0.6 oz pure alcohol) History of alcohol abuse, reports no use in 3 week- typically endorses use as 4 glasses of wine a days Utilities Answer Date Recorded In the past 12 months has [employer], gas, oil, or water [employer] threatened to shut off services in your [...] time in the past [address] [facility], were you homeless or living in [...] encounter Miscellaneous Notes * Telephone Encounter - Bita Mccracken MA - 10/20/2024 12:34 PM EDT Last OV:09/02/2024 Next OV: Last Labs:10/20/2024 Last refill: Comment: * Telephone Encounter - Chelle Michaels MA - 10/20/2024 12:04 PM EDT Pt requesting prescription refill. MEDICATIONS REQUESTED: Requested Prescriptions Pending Prescriptions Disp Refills sodium bicarbonate 650 MG tablet 90 tablet 0 Sig: Take 2 tablets (1,300 mg total) by mouth 3 times a day. rifAXIMin (XIFAXAN) 550 mg Tab tablet 60 tablet 0 Sig: Take 1 tablet (550 mg total) by mouth 2 times a day. ciprofloxacin HCl (CIPRO) 500 MG tablet 30 tablet 0 Sig: Take 1 tablet (500 mg total) by mouth daily. Pt is also requesting: Torsemide 20 mg once per day Pt states they are out of medications and need filled today. PHARMACY & PHONE #: [facility] [address] [place], [place] [address] [address] [address] DATE OF LAST APPT: 09/02/2024 Gerri Peterson MD DATE OF NEXT APPT: 12/02/2024 GI/LIVER FELLOW 4 documented in this encounter Plan of Treatment Upcoming Encounters Date Type Department Care Team (Late st Contact Info) Description 12/05/2024 8:01 AM EDT Hospital Encounter [facility] ENDOSCOPY [address] [place] [phone] Chris Orosco MD [address] [place] [phone] 12/05/2024 8:01 AM EDT - 12/05/2024 8:31 AM EDT Surgery [facility] ENDOSCOPY [address] [place] [phone] Chris Orosco MD [address] [place] [address] EGD Scheduled Procedures Name Priority Associated Diagnoses Date/Ti va EGD Cirrhosis of liver with ascites, unspecified hepatic cirrhosis type ([facility]-H[facility]) 12/05/2024 8:01 AM EDT documented as of this encounter Visit Diagnoses Not on filedocumented in this encounter Additional Health Concerns Infection Onset Date Last Indicated Resolved Time C. difficile 09/09/2024 09/09/2024 Assessment Noted Time PHQ-9 Depression Total Score: 17 025 11:00 AM EDT documented as of this encounter Care Teams Put In Beat Adjuster Relationship Specialty Start Date End Date Enedina Mcguire NP [address] [place] [address] PCP - General Internal Medicine 10/05/24 documented as of this encounter
--- OUTSIDE RECORDS SUMMARY | 2024-10-21 07:50 | XMS_ITS | Encounter Summary ---
Author Organization [facility] Address [address] [place] [address] Care Team Providers Care Postdoctoral Research Fellow Name Role Phone Enedina Mcguire NP Primary Care Provider [phone] Source Comments This information has been disclosed [...] release of HIV test results or diagnoses. [id number] Encounter Details Date Type Department Care Team (Late st Contact Info) Description 10/20/2024 Telephone [facility] Liver Transplant at [address] [address] Mary Butler, RN Social History Tobacco Use Types Packs/Day Years Used Date Smoking Tobacco: Former Cigarettes Smokeless Tobacco: Current Alcohol Use Standard Drinks/Week Comments Yes 0 (1 standard drink = 0.6 oz pure alcohol) History of alcohol abuse, reports no use in 3 week- typically endorses use as 4 glasses of wine a days Utilities Answer Date Recorded In the past 12 months has [employer], gas, oil, or water [employer] threatened to shut off services in your [...] as of this encounter Progress Notes * Mary Butler RN - 10/20/2024 10:15 AM EDT Phoned patient to follow up from Sunday's discharge. States he's doing okay and is focusing on his rest and protein intake. Re discussed with him that we plan to activate him on the wait-list Sunday morning for [facility]. I asked that in the meantime he gather this thoughts on Hep B and Hep C donors. He'll also go to [facility] later today vs tomorrow morning for follow up MELD labs that I'll need in order to list him. All questions answered at this time. Lab orders faxed to [facility] at [phone] and emailed to patient. documented in this encounter Plan of Treatment Upcoming Encounters Date Type Department Care Team (Late st Contact Info) Description 12/05/2024 8:01 AM EDT Hospital Encounter [facility] ENDOSCOPY [address] [place] [address] Chris Orosco MD [address] [place] [phone] 12/05/2024 8:01 AM EDT - 12/05/2024 8:31 AM EDT Surgery [facility] ENDOSCOPY [address] [place] [address] Chris Orosco MD [address] [place] [phone] EGD Scheduled Orders Name Type Priority Associated Diagnoses Orde r Schedule Hepatic Function Panel Lab Routine Patient on waiting list for liver transplant 4 Occurrences starting 10/20/2024 until 05/04/2025 Renal Function Panel w/EGFR Lab Routine Patient on waiting list for liver transplant 4 Occurrences starting 10/20/2024 until 05/04/2025 Protime-INR Lab Routine Patient on waiting list for liver transplant 4 Occurrences starting 10/20/2024 until 05/04/2025 Scheduled Procedures Name Priority Associated Diagnoses Date/Ti me EGD Cirrhosis of liver with ascites, unspecified hepatic cirrhosis type (CMS-HCC) 12/05/2024 8:01 AM EDT documented as of this encounter Visit Diagnoses Diagnosis Patient on waiting list for liver transplant- Primary Cirrhosis of liver with ascites, unspecified hepatic cirrhosis type (CMS-HCC) documented in this encounter Additional Health Concerns Infection Onset Date Last Indicated Resolved Time C. difficile 09/09/2024 09/09/2024 Assessment Noted Time PHQ-9 Depression Total Score: 17 025 11:00 AM EDT documented as of this encounter Care Teams Postdoctoral Research Fellow Relationship Specialty Start Date End Date Enedina Mcguire NP [address] [place] [address] PCP - General Internal Medicine 10/05/24 documented as of this encounter
--- OUTSIDE RECORDS SUMMARY | 2024-10-21 07:50 | XMS_ITS | Encounter Summary ---
Author Organization [facility] Address [address] [place] [address] Care Team Providers Care Email Marketing Intern Name Role Phone Enedina Mcguire NP Primary Care Provider [phone] Source Comments This information has been disclosed [...] release of HIV test results or diagnoses. [id number] Reason for Visit * Reason Comments Prescription Issue RX Clarification Req uest Encounter Details Date Type Department Care Team (Late st Contact Info) Description 10/20/2024 Telephone [facility] Gastroenterology at [facility] Office [address] [place] [address] Gerri Peterson MD [address] [place] [address] Prescription Issue (RX Clarification Request ) Social History Tobacco Use [...] Recorded In the past 12 months has [employer], gas, oil, or water [employer] threatened to shut off services in [...] encounter Miscellaneous Notes * Telephone Encounter - Yomaira Saenz MA - 10/20/2024 4:17 PM EDT Tech called requesting clarification on the following RX: RX: ciprofloxacin HCl (CIPRO) 500 MG tablet rifAXIMin (XIFAXAN) 550 mg Tab tablet Clarification needed: Clarifying that both are to be filled Please return call to [phone]. documented in this encounter Plan of Treatment Upcoming Encounters Date Type Department Care Team (Late st Contact Info) Description 12/05/2024 8:01 AM EDT Hospital Encounter [facility] ENDOSCOPY [address] [place] [address] Chris Orosco MD [address] [place] [address] 12/05/2024 8:01 AM EDT - 12/05/2024 8:31 AM EDT Surgery [facility] ENDOSCOPY [address] [place] [address] Chris Orosco MD [address] [place] [phone] EGD Scheduled Procedures Name Priority Associated Diagnoses Date/Ti me EGD Cirrhosis of liver with ascites, unspecified hepatic cirrhosis type ([facility]-H[facility]) 12/05/2024 8:01 AM EDT documented as of this encounter Visit Diagnoses Not on filedocumented in this encounter Additional Health Concerns Infection Onset Date Last Indicated Resolved Time C. difficile 09/09/2024 09/09/2024 Assessment Noted Time PHQ-9 Depression Total Score: 17 05/19/2 025 11:00 AM EDT documented as of this encounter Care Teams Email Marketing Intern Relationship Specialty Start Date End Date Enedina Mcguire NP [address] [place] [address] PCP - General Internal Medicine 10/05/24 documented as of this encounter
--- OUTSIDE RECORDS SUMMARY | 2024-10-21 07:50 | XMS_ITS | Encounter Summary ---
Author Organization [facility] Address [address] [place] [address] Care Team Providers Care Wafer Polishing Worker Name Role Phone Enedina Mcguire NP Primary Care Provider [phone] Source Comments This information has been disclosed [...] release of HIV test results or diagnoses. [id number] Encounter Details Date Type Department Care Team (Late st Contact Info) Description 10/17/2024 Pharmacy Services [facility] [address] [place] [address] Qu, Ridge, RPh Social History Tobacco [...] Recorded In the past 12 months has [employer], gas, oil, or water company threatened to [...] time in the past 12 m [facility], were you homeless or living in [...] this encounter Progress Notes * Ridge Menjivar, [facility] - 10/17/2024 9:47 AM EDT Julien Anderson [...] member, friend, or other person (including a landing signal officer). The at-risk individual reports no known [...] Hospital Encounter [facility] ENDOSCOPY [address] [place] [phone] Chris Orosco MD [address] [place] [phone] 12/05/2024 8:01 AM EDT - 12/05/2024 8:31 AM EDT Surgery [facility] ENDOSCOPY [address] [place] [phone] Chris Orosco MD [address] [place] [phone] EGD Scheduled Procedures Name Priority Associated Diagnoses Date/Ti md EGD Cirrhosis of liver with ascites, unspecified hepatic cirrhosis type ([facility]) 12/05/2024 8:01 AM EDT documented as of this encounter Visit Diagnoses Not on filedocumented in this encounter Additional Health Concerns Infection Onset Date Last Indicated Resolved Time C. difficile 09/09/2024 09/09/2024 Assessment Noted Time PHQ-9 Depression Total Score: 17 025 11:00 AM EDT documented as of this encounter Care Teams Wafer Polishing Worker Relationship Specialty Start Date End Date Enedina Mcguire NP [address] [place] [address] PCP - General Internal Medicine 10/05/24 documented as of this encounter
--- OUTSIDE RECORDS SUMMARY | 2024-10-21 07:51 | XMS_ITS | Clinical Summary ---
Author Organization [facility] Address [facility] [place] [place] [address] Care Team Providers Care Windshield Technician Name Role Phone Enedina Mcguire NP Primary Care Provider [phone] Source Comments This information has been disclosed [...] therelease of HIV test results or diagnoses. [id number] Active Allergy Reactions Criticality Noted [...] by mouth every morning before breakfast. Active zinc sulfate (ZINCATE) 50 mg zinc (220 mg) capsule Take 1 capsule (220 mg total) by mouth daily. 60 capsule 08/19/2024 1:23 PM EDT Active potassium chloride (KLOR-CON M20) 20 MEQ tabletIndicatio ns:Hypokalemia Take 2 tablets (40 mEq total) by mouth daily. 60 tablet 2 5 Active ursodioL (ACTIGALL) 300 mg capsule [...] tablet 10/17/2024 10:24 AM EDT 5 Active midodrine (PROAMATINE) 10 MG tablet Take 1 tablet (10 mg total) by mouth 3 times a day. 90 tablet 10/17/2024 10:24 AM EDT 5 Active FLUoxetine (PROZAC) 20 MG capsule Take 1 capsule (20 mg total) by mouth daily. 30 capsule 2 10/17/2024 10:24 AM EDT 5 Active naloxone (NARCAN) 4 mg/actuation [place] Apply 1 spray in one nostril if needed. Call 911. May repeat dose in other nostril if no response in 3 minutes. 2 each 1 10/17/2024 10:25 AM EDT 5 Active sodium bicarbonate 650 MG tablet Take 2 tablets (1,300 mg total) by mouth 3 times a day. 90 tablet 5 Active rifAXIMin (XIFAXAN) 550 mg Tab tablet Take 1 tablet (550 mg total) by mouth 2 times a day. 60 tablet 5 Active ciprofloxacin HCl (CIPRO) 500 MG tablet Take 1 tablet (500 mg total) by mouth daily. 30 tablet 5 Active traMADoL (ULTRAM) 50 mg tablet Take 1 tablet (50 mg total) by mouth every 12 hours as needed for Pain (Pain). 10/18/19 25 Discontinu ed(Stop Taking at Discharge) lactulose (CHRONULAC) 10 gram/15 mL solution Take 30 mLs (20 g total) by mouth 3 times a day as needed (goal 2-3 bowel movements a day). 2838 mL 08/19/2024 1:23 PM EDT 5 10/18/19 25 Discontinu ed(Stop Taking at Discharge) rifAXIMin (XIFAXAN) 550 mg Tab tablet Take 1 tablet (550 mg total) by mouth 2 times a day. 60 tablet 08/19/2024 1:23 PM EDT 5 10/21/19 25 Discontinu ed(Refill / Reorder) cholestyramine- aspartame (PREVALITE) 4 gram Powd bulk Mix one scoop with 4-6 ounces of water and drink by mouth daily. 231 g 08/19/2024 1:23 PM EDT 5 10/06/19 25 Discontinu ed(Patient Choice / Non-adhere nce) sodium bicarbonate 650 MG tablet Take 2 tablets (1,300 mg total) by mouth 3 times a day. 90 tablet 08/19/2024 1:23 PM EDT 5 10/21/19 25 Discontinu ed(Refill / Reorder) ciprofloxacin HCl (CIPRO) 500 MG tablet Take 1 tablet (500 mg total) by mouth daily. 30 tablet 09/09/2024 3:56 PM EDT 5 10/21/19 25 Discontinu ed(Refill / Reorder) oxyCODONE (ROXICODONE) 5 MG immediate release tabletIndicatio ns:Pain Take 1 tablet (5 mg total) by mouth every 6 hours as needed for up to 3 days. 12 tablet 10/17/2024 10:24 AM EDT 5 10/21/19 25 Active Problems Problem Noted Date Diagnosed Date Neck pain with history of cervical spinal surger y 10/07/2024 C. difficile diarrhea 09/09/2024 SBP (spontaneous bacterial peritonitis) 09/09/19 25 Assessment & Plan (09/08/2024 9:51 AM [...] with SBP, s/p CTX x5d; will cont manager terminal ppx with Cipro 500mg daily - HE: [...] Encounters Date Type Department Care Team Description 10/20/2024 9:10 AM EDT - 10/20/2024 11:59 PM EDT Hospital Encounter [facility] Radiology [address] [place] [phone] System, Provider Not In Arrived Discharge Disposition: Home or Self Care WITHOUT Home Care Services 10/20/2024 9:10 AM EDT - 10/20/2024 11:59 PM EDT Hospital Encounter [facility] [address] [place] [phone] System, Provider Not In Arrived Discharge Disposition: Home or Self Care WITHOUT Home Care Services 10/20/2024 9:10 AM EDT - 10/20/2024 11:59 PM EDT Hospital Encounter [facility]iology [address] [place] [phone] System, Provider Not In Arrived Discharge Disposition: Home or Self Care WITHOUT Home Care Services 10/20/2024 9:10 AM EDT - 10/20/2024 11:59 PM EDT Hospital Encounter [facility]iology [address] [place] [address] System, Provider Not In Arrived Discharge Disposition: Home or Self Care WITHOUT Home Care Services 10/20/2024 9:10 AM EDT - 10/20/2024 11:59 PM EDT Hospital Encounter [facility]iology [address] [place] [address] System, Provider Not In Arrived Discharge Disposition: Home or Self Care WITHOUT Home Care Services 10/20/2024 9:10 AM EDT - 10/20/2024 11:59 PM EDT Hospital Encounter [facility]iology [address] [place] [address] System, Provider Not In Arrived Discharge Disposition: Home or Self Care WITHOUT Home Care Services 10/20/2024 9:10 AM EDT - 10/20/2024 11:59 PM EDT Hospital Encounter [facility]iology [address] [place] [address] System, Provider Not In Arrived Discharge Disposition: Home or Self Care WITHOUT Home Care Services 10/20/[address] [facility] Pancreas Trans[facility] [address] [place] [phone] Abdulkadir Gaspar MD 10/20/[address] [facility] Gastroenterology at [facility] [address] [facility] [address] [place] [phone] Gerri Peterson MD Prescription Issue (RX Clarification Request ) 10/20/[address] [facility] Gastroenterology at [facility] [address] [facility] [address] [place] [address] Gerri Peterson MD 10/20/[address] [facility] Liver Transplant at [address] [place] [address] [place] [address] Mary Butler RN 10/17/[address] [facility] Kidney Transplant at [address] [place] [address] [place] [phone] Anny Cote RN Copy of HLA report scanned into the media tab. Will follow up on GFR 10/17/[address] [facility] Kidney Transplant at [address] [phone] Anny Cote, RN 10/17/[address] [facility] [address] [place] [phone] Ridge Menjivar [facility] 10/14/2024 8:42 AM EDT - 10/14/2024 9:27 AM EDT Surgery [facility] Cardiac Outreach Assistant [address] [address] [place] [phone] rIving Matta MD Left Heart Cath 10/14/[address] [facility] Kidney Transplant at [address] [address] Dean Robles [facility] [address] 10/10/2024 12:01 PM EDT Anest[address] Event [facility] ENDOSCOPY [address] [place] [address] Cady Bhat MD Nguyen, Quinn, MD 10/10/2024 10:36 AM EDT - 10/10/2024 11:[address] [facility] ENDOSCOPY [address] [place] [address] Lino Soto MD EGD 10/09/[address] [facility] Liver Transplant at [address] [address] Kaylin Willard MSW 10/09/[address] [facility] Kidney Transplant at [address] [address] Dean Robles [facility] [address] call from Elle [facility] fx [phone] 10/09/[address] [facility] Kidney Transplant at [address] [phone] Dean oRbles [facility] [address] 10/07/[address] 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 Kidney Transplant at [address] [phone] Anny Cote RN Received notice of in house evaluation. Message to nephrology 10/07/[address] [facility] Kidney Transplant at [address] [address] Chey Nicole MA This MA received new referral for PT. Will FU once financially cleared. 10/07/[address] [facility] Kidney Transplant at [address] [address] Anny Cote RN Simultaneous Liver-Kidney Transplant Referral 10/06/2024 Travel 10/05/2024 11:12 PM EDT - 10/17/2024 10:29 AM EDT Hospital Encounter [facility] [address] [place] [address] Gómez Blanchard MD Wood, Sharice N, MD Thomas, Stephanie, MD Alcoholic cirrhosis of liver with [...] Care WITHOUT Home Care Services 10/05/2024 Telephone [facility] PATIENT SERVICES [address] [place], [place] [phone] Unknown, Attending Provider After Hours Call 10/01/[address] [facility] Liver Transplant at [place] [address] [place] [address] Armand Salinas, RN 09/30/[address] [facility] Liver Transplant at [address] [address] Kaylin Willard MSW 09/29/2024 11:00 AM EDT Office Visit [facility] Psychiatry Transplant at [address] [phone] Lizeth Warren PsyD PTSD (post-traumatic stress disorder) (Primary Dx); Alcohol use disorder 09/26/[address] [facility] G[facility] at [facility] [address] [facility] [address] [place] [phone] Gerri Peterson MD 09/25/2024 11:25 AM EDT [facility] [address] [place] [phone] Gerri Peterson MD Cirrhosis of liver with ascites, unspecified hepatic cirrhosis type ([facility]-HCC); Pre-transplant evaluation for chronic liver disease; Alcoholic cirrhosis of liver without ascites ([facility]-HCC) 09/25/[address] [facility] Liver Transplant at [place] [address] [place] [phone] Kaylin Willard MSW 09/25/[address] [facility] Interventional Radiology [address] [place] [phone] Thad De Leon Appointment 09/25/[address] [facility] Liver Transplant at [address] [place] [phone] Mary Butler, RN Pre-transplant evaluation for chronic liver disease (Primary Dx); Alcoholic cirrhosis of liver without ascites (CMS-HCC) 09/24/[address] [facility] Gastroenterology at [facility] [address] [facility] [place] [address] [place] [address] Gerri Peterson MD Cirrhosis of liver with ascites, unspecified hepatic cirrhosis type (CMS-HCC) (Primary Dx) 09/24/[address] [facility] Gastroenterology at [facility] [address] [facility] [place] [address] [place] [phone] Gerri Peterson MD Cirrhosis of liver with ascites, unspecified hepatic cirrhosis type (CMS-HCC) (Primary Dx) 09/23/[address] [facility] Gastroenterology at [facility] [address] [facility] [address] [place] [address] Gerri Peterson MD Orders (Order Clarification Request/) 09/22/[address] [facility] Gastroenterology at [facility] [address] [facility] [address] [place] [phone] Gerri Peterson MD Orders (Order Clarification Request ) 09/17/[address] [facility] Liver Transplant at [address] [place] [phone] Kaylin Willard MSW 09/17/[address] [facility] Gastroenterology at [facility] [address] [facility] [address] [place] [phone] Gerri Peterson MD 09/17/[address] [facility] Liver Transplant at [address] [place] [phone] Kaylin Willard, NUBIA 09/16/[address] [facility] Gastroenterology at [facility] Office [address] [facility] [address] [place] [phone] Gerri Peterson MD Medical Management (Plan of Care Inquiry/Question ) 09/10/[address] [facility] Liver Transplant at [facility] [address] [facility] [address] [place] [address] Kaylin Willard, NUBIA 09/05/[address] [facility] Gastroenterology at [facility] [address] [facility] [address] [place] [address] Chris Orosco MD Cirrhosis of liver with ascites, unspecified hepatic cirrhosis type (CMS-HCC) (Primary Dx) 09/05/2024 Travel 09/03/2024 4:56 AM EDT - 09/09/2024 6:25 PM EDT Hospital Encounter [facility] [address] [place] [phone] Ana Maria Ramey MD Zackary, Joseph, MD Morgenlander, Adam M, MD Liebler, Hillary, MD Stickles, Allison Michele, MD Alcoholic cirrhosis of liver with ascites (CMS-HCC) (Primary Dx); Abdominal pain, unspecified abdominal location; NADIYA (acute kidney injury) (CMS-HCC) [N17.9] Discharge Disposition: Home or Self Care WITHOUT Home Care Services 09/03/[address] [facility] Interventional Radiology [address] [place] [phone] Thad De Leon Appointment 09/02/2024 4:00 PM EDT [facility] [address] [facility] [place] [address] [place] [phone] Doron Botello MD Alcoholic cirrhosis of liver without ascites (CMS-HCC); Cirrhosis of liver with ascites, unspecified hepatic cirrhosis type (CMS-HCC) 09/02/2024 2:40 PM EDT Office Visit [facility] Gastroenterology at [facility] [address] [facility] [place] [address] [place] [phone] Gerri Peterson MD Cirrhosis of liver with ascites, unspecified hepatic cirrhosis type (CMS-HCC) (Primary Dx); Alcoholic cirrhosis of liver without ascites (CMS-HCC) 09/02/2024 Orders Only [facility] [address] [place], [place] [phone] Noé Giordano MD Hypokalemia (Primary Dx) 09/02/2024 Telephone [facility] PATIENT SERVICES [address] [place], [place] [phone] Unknown, Attending Provider After Hours Call 09/02/[address] [facility] Liver Transplant at [address] [place] [phone] Mary Butler RN Pre-transplant evaluation for chronic liver disease (Primary Dx); Alcoholic cirrhosis of liver without ascites (CMS-HCC) 09/02/[address] [facility] Gastroenterology at [facility] [address] [facility] [address] [place] [phone] Gerri Peterson MD Orders (Order Request (New) ) 09/02/[address] [facility] Gastroenterology at [facility] [address] [facility] [place] [address] [place] [phone] Chris Orosco MD 08/20/[address] [facility] Liver Transplant at [address] [place] [phone] Kaylin Willard MSW 08/15/[address] [facility] Kidney Transplant at [address] [place] [address] [place] [phone] Dean Robles [facility] [address] 08/13/[address] [facility] Liver Transplant at [address] [place] [address] Mary Butler, RN Outpatient liver transplant referral received from Dr Maza. Referral 08/12/2024 6:12 PM EDT - 08/19/2024 12:56 PM EDT Hospital Encounter [facility] [address] [place] [phone] [place], MD Jf Day Peter, MD Ahmad, Yousef, MD Ayoub, MD Jovani Moss, Leeanna Jaime MD Chronic liver failure without hepatic coma (CMS-HCC) (Primary Dx); Decompensated cirrhosis (CMS-HCC); NADIYA (acute kidney injury) (CMS-HCC); Hypotension, unspecified hypotension type; Hepatorenal syndrome (CMS-HCC); Shock (CMS-HCC); Acute metabolic encephalopathy Discharge Disposition: Home WITH Home Health Care Services 08/12/2024 Travel 07/25/2024 6:59 PM EDT - 07/29/2024 2:12 PM EDT Hospital Encounter [facility] [address] [place] [phone] Melissa Zuleta MD Krause, Julie A, MD Martinez, Juan Fernando, MD Jaundice (Primary Dx); Alcoholic cirrhosis of liver without ascites (CMS-HCC) Discharge Disposition: Home or Self Care WITHOUT Home Care Services 07/25/2024 Travel 07/24/[address] [facility] Liver Transplant at [place] [address] [place] [address] Chinedu Steve MA from Last 3 Months [...] Recorded In the past 12 months has [employer], oil, or water company threatened to shut [...] Encounter [facility] ENDOSCOPY [address] [place] [phone] Chris Orosco MD [address] [place] [phone] 12/05/2024 8:01 AM EDT - 12/05/2024 8:[address] [facility] ENDOSCOPY [address] [place] [phone] Chris Orosco MD [address] [place] [address] EGD Scheduled Procedures Name Priority [...] 09/03/2024, 08/12/2024, Additional history exists Thyroid Function/TSH (XOR.MOTORShart) 10/07/2025 0 10/07/2024, 10/06/2024, 09/03/2024 Diabetes Screening 10/08/2025 10/08/2024 Renal Function/GFR 10/17/2025 10/17/2024, 0 10/16/2024, 10/15/2024, Additional history exists Immunization: DTaP/Tdap/Td ( 3 - Td or Tdap) 06/03/2028 06/03/2018, 09/13/2010 Immunization: Influenza (MyChart) Completed 024, 03/12/2023 HIV Screening Completed 10/07/2024 Hepatitis C Screening (XOR.MOTORShart) Completed 10/07/2024, 10/06/2024, 09/03/2024, Additional history exists Procedures Procedure Name Priority Date/Time Associated Diagnosis Comments HOX - HLA CROSSMATCH + DETAILED ANTIBODY Routine 10/20/2024 5:04 PM EDT HOX - ABO TYPING REPORT Routine 10/21/19 5:03 PM EDT XR COMPARISON IMAGES Routine 10/20/2024 9:10 AM EDT XR COMPARISON IMAGES Routine 10/20/2024 9:10 AM EDT XR COMPARISON IMAGES Routine 10/20/2024 9:10 AM EDT XR COMPARISON IMAGES Routine 10/20/2024 9:10 AM EDT XR COMPARISON IMAGES Routine 10/20/2024 9:10 AM EDT XR COMPARISON IMAGES Routine 10/20/2024 9:10 AM EDT XR COMPARISON IMAGES Routine 10/20/2024 9:10 AM EDT BLOOD TRANSFUSION - SCAN 025 3:03 PM [...] STRIP - SCAN 10/13/19 10:30 PM EDT PROTIME-INR STAT 10/12/2024 5:44 AM EDT HEPATIC FUNCTION PANEL STAT 5:44 AM EDT MAGNESIUM STAT 10/12/2024 5:44 AM EDT RENAL FUNCTION PANEL W/EGFR STAT 10/12/2024 5:44 AM EDT CBC STAT 10/12/2024 5:44 AM EDT CARISA RHYTHM STRIP - SCAN 10/12/19 10:04 PM EDT VANCOMYCIN, RANDOM Routine 10/11/2024 [...] LIPID PANEL Routine 10/07/2024 6:37 PM EDT GOHPT-2-XCHPLDYCURV (AAT) QUANTITATION & MUTATION Routine 10/07/2024 6:37 [...] 10/07/2024 3 :48 PM EDT US DUPLEX HMA-[id number]-GIKETTY COMPLETE Routine 10/07/2024 3:48 PM EDT CARISA [...] 10/06/2024 4:01 AM EDT UPPER RESPIRATORY VIRAL/BACTERIAL PANEL-AUDIO TAPE LIBRARIAN ONLY Routine 10/06/2024 3:12 AM EDT XR [...] PM EDT CHLORIDE, URINE, RANDOM Add-On 09/04/19 25 3:21 PM EDT MAGNESIUM Timed 09/03/2024 3:21 [...] STAT 09/03/2024 10:30 AM EDT US DUPLEX CDU-[id number]-[id number] COMPLETE STAT 09/03/2024 10:30 AM EDT URINALYSIS, [...] - SCAN 08/16/19 25 7:21 PM EDT MAGNESIUM STAT 08/15/2024 2:26 [...] EDT CARISA RHYTHM STRIP - SCAN 08/15/19 25 1:56 PM EDT TRIGLYCERIDES, BODY FLUIDS Routine [...] 08/13/2024 3 :03 PM EDT US DUPLEX EOF-[id number] COMPLETE Routine 08/13/2024 3:03 PM EDT CENTRAL [...] 07/29/2024 8: 54 AM EDT US DUPLEX KKA-VRBKUL-FBAETCP COMPLETE Routine 07/29/2024 8:54 AM EDT SODIUM, [...] EDT from Last 3 Months Results * HOX - HLA CROSSMATCH + Detailed Antibody (10/20/2024 5:04 PM EDT) 10/20/2024 5:04 PM EDT us Abdulkadir Gaspar MD LAB BLOOD ORDERABLES Final Resul t [facility] [address] [facility] [place] [address] * Hox - ABO Typing Report (10/20/2024 5:03 PM EDT) 10/20/2024 5:03 PM EDT us Abdulkadir Gaspar MD LAB BLOOD ORDERABLES Final Resul t [facility] [address] [facility] [place] [address] * X-ray Comparison Images (10/20/2024 9:10 AM EDT) Only the most recent of7 resultswithin the time period is included. Narrative EXTERNAL - 10/20/2024 9:10 AM EDT Images associated with this accession number were presented to us for comparison to an examination performed here. us Provider Not In System IMG DIAGNOSTIC IMAGING OR DERABLES Final Result Performing Organization Address City/[facility]/ZIP Co de Phone Number EXTERNAL * Blood Transfusion - scan (10/18/2024 3:03 PM EDT) us Scanning [facility] SCAN DOCS - NO RESULTS Final Res ult * (ABNORMAL) Renal Function Panel w/EGFR (10/17/2024 5:48 AM EDT) Only the most recent of49 resultswithin the time period is included. Sodium 133 133 - 146 mmol/L 10/17/2024 7:02 AM EDT [facility] Potassium 3.4(L) 3.5 - 5.3 mmol/L 10/17/2024 7:02 AM EDT [facility] Chloride 104 98 - 110 mmol/L 10/17/2024 7:02 AM EDT [facility] CO2 18(L) 21 - 33 mmol/L 10/17/2024 7:02 AM EDT [facility] Anion Gap 11 3 - 16 mmol/L 10/17/2024 7:02 AM EDT [facility] BUN 54(H) 7 - 25 mg/dL 10/17/2024 7:02 AM EDT [facility] Creatinine 2.88(H) 0.60 - 1.30 mg/dL 10/17/2024 7:02 AM EDT [facility] Glucose 127(H) 70 - 100 mg/dL 10/17/2024 7:02 AM EDT [facility] Calcium 8.2(L) 8.6 - 10.3 mg/dL 10/17/2024 7:02 AM EDT [facility] Phosphorus 4.5 2.1 - 4.7 mg/dL 10/17/2024 7:02 AM EDT [facility] Albumin 3.1(L) 3.5 - 5.7 g/dL 10/17/2024 7:02 AM EDT [facility] Osmolality, Calculated 292 278 - 305 mOsm/kg 10/17/2024 7:02 AM EDT [facility] EGFR 27 10/17/2024 7:02 AM EDT [facility] [...] AM EDT 10/17/2024 6:32 AM EDT us Kush Posada MD, PhD LAB BLOOD ORDERABLES Final Result [facility] [address] [place] [address], [facility] * (ABNORMAL) Hepatic Function Panel (10/16/2024 6:31 AM EDT) Only the most recent of34 resultswithin the time period is included. Total Bilirubin 7.6(H) 0.0 - 1.5 mg/dL 10/16/2024 7:24 AM EDT [facility] Bilirubin, Direct 3.97(H) 0.00 - 0.40 mg/dL 10/16/2024 7:24 AM EDT [facility] AST 45(H) 13 - 39 U/L 10/16/2024 7:24 AM EDT [facility] ALT 23 7 - 52 U/L 10/16/2024 7:24 AM EDT [facility] Alkaline Phosphatase 137(H) 36 - 125 U/L 10/16/2024 7:24 AM EDT [facility] Total Protein 5.1(L) 6.4 - 8.9 g/dL 10/16/2024 7:24 AM EDT [facility] Albumin 3.4(L) 3.5 - 5.7 g/dL 10/16/2024 7:24 AM EDT [facility] Bilirubin, Indirect 3.63(H) 0.00 - 1.10 mg/dL 10/16/2024 7:24 AM EDT [facility] Plasma 10/16/2024 6:31 AM EDT 10/16/2024 6:56 AM EDT us Kush Posada MD, PhD LAB BLOOD ORDERABLES Final Result [facility] [address] [place] [address], [facility] * (ABNORMAL) Protime-INR (10/16/2024 6:31 AM EDT) Only the most recent of34 resultswithin the time period is included. Protime 22.5(H) 12.1 - 15.1 seconds 10/16/2024 8:04 AM EDT [facility] INR 1.9(H) 0.9 - 1.1 10/16/2024 8:04 AM EDT [facility] Comment: RECOMMENDED THERAPEUTIC RANGES USING INR : Stable oral anticoagulant therapy: 2.0 - 3.0 Mechanical prosthetic heart valve: 2.5 - 3.5 Recurrent acute myocardial infarction: 2.5 - 3.5 Plasma 10/16/2024 6:31 AM EDT 10/16/2024 6:56 AM EDT us Kush Posada MD, PhD LAB BLOOD ORDERABLES Final Result [facility] [address] [place] [address], [facility] * (ABNORMAL) CBC (10/16/2024 6:31 AM EDT) Only the most recent of43 resultswithin the time period is included. WBC 5.8 3.8 - 10.8 10E3/uL 10/16/2024 8:00 AM EDT [facility] RBC 2.16(L) 4.20 - 5.80 10E6/uL 10/16/2024 8:00 AM EDT [facility] Hemoglobin 7.7(L) 13.2 - 17.1 g/dL 10/16/2024 8:00 AM EDT [facility] Hematocrit 22.1(L) 38.5 - 50.0 % 10/16/2024 8:00 AM EDT [facility] MCV 102.3(H) 80.0 - 100.0 fL 10/16/2024 8:00 AM EDT [facility] MCH 35.7(H) 27.0 - 33.0 pg 10/16/2024 8:00 AM EDT [facility] MCHC 34.9 32.0 - 36.0 g/dL 10/16/2024 8:00 AM EDT [facility] RDW 17.7(H) 11.0 - 15.0 % 10/16/2024 8:00 AM EDT [facility] Platelets 43(L) 140 - 400 10E3/uL 10/16/2024 8:00 AM EDT [facility] Comment: Specimen checked for clots. None detected. Slide Reviewed for PLT Clumps. None Seen. Platelet Estimate Decreased 10/16/2024 8:00 AM EDT [facility] MPV 8.6 7.5 - 11.5 fL 10/16/2024 8:00 AM EDT [facility] Whole Blood 10/16/2024 6:31 AM EDT 10/16/2024 6:57 AM EDT Narrative [facility] - 10/16/2024 8:00 AM EDT Peripheral blood smear was scanned per review criteria approved by the laboratory medical leader. Kush Posada MD, PhD LAB BLOOD ORDERABLES Final Result Performing Organization Address City/[facility] Co de Phone Number [facility] [address] [facility]. [address] * Magnesium (10/16/2024 6:31 AM EDT) Only the most recent of50 resultswithin the time period is included. Pathologist [facility] Magnesium 2.1 1.5 - 2.5 mg/dL 10/16/2024 7:24 AM EDT [facility] Plasma 10/16/2024 6:31 AM EDT 10/16/2024 6:56 AM EDT Kush Posada MD, PhD LAB BLOOD ORDERABLES Final Result Performing Organization Address [facility] de Phone Number [facility] [address] [place] [address]. [address] * CARISA Rhythm Strip - Scan (10/15/2024 8:02 PM EDT) Only the most recent of12 resultswithin the time period is included. us Scanning Uchhim SCAN DOCS - NO RESULTS Final Res ult * Prepare Platelets, leukoreduced, 1 Units (10/15/2024 6:16 AM EDT) Only the most recent of2 resultswithin the time period is included. Product Code S5676X26 HCLL Unit Number [id number] HCLL Dispense Status Presumed Transfused_PT HCLL Blood Expiration Date 338012044406 HCLL Coding System [id number] HCLL Blood Bank Product Eleazar Nguyễn MD BLOOD BANK PRODUCT ORDE RABLES Final Result Performing Organization Address [facility] Co de Phone Number HC[facility] * Prepare Fresh Frozen Plasma, 1 Units (10/15/2024 6:15 AM EDT) Product Code K9828H99 HCLL Unit Number [id number] HCLL Dispense Status Presumed Transfused_PT HCLL Blood Expiration Date HCLL Coding System [id number] HCLL Blood Bank Product us Eleazar Nguyễn MD BLOOD BANK PRODUCT ORDE RABJOSE R Final Result Performing Organization Address City/[facility] Co de Phone Number [facility] * PRA-HLA Ab Screen (Cytotoxic) (10/15/2024 6:08 AM EDT) [facility] The request and specimen(s) for this test have been received and transported to the [facility] at [address] [place] [address]. The [facility] will report results directly to the client. 10/15/2024 6:42 AM EDT [facility] Comment:The request and spec imen(s) for this test have been received and transported to the [facility] at [address] [place] [address]. The [facility] will report results directly to the client. Serum 10/15/2024 6:08 AM EDT 10/15/2024 6:42 AM EDT us Cosmo Pacheco MD LAB BLOOD ORDERABLES Final Resul t Performing Organization Address City/[facility]/ZIP Co de Phone Number [facility] [address] [place] [address] * LEFT HEART CATH (10/14/2024 2:09 PM EDT) 10/14/2024 11:4 7 AM EDT Narrative [facility] - 10/14/2024 9:27 PM EDT *[facility]* Cardiac Outreach Assistant [address] [place] [address] CATHETERIZATION LAB STUDY Patient: Blair Anderson Age: [...] manner. 3. Right radial artery access. A [id number] Glidesheath - Slender - .021 sheath was [...] + !LV pressure s/d, ed !112, , dP/ug=2643cc Hg/s! + + + !Aortic pressure s/d (m)!106/58 (75) ! + + + ATTESTATION: Dr. Matta was present for the entire procedure. Dr. Jay Quan was the initial author of this report. Prepared and electronically signed by Irving Matta MD [id number] Procedure Note Irving Matta MD - 10/14/2024 *[facility]* Cardiac Outreach Assistant [address] [place] [address] CATHETERIZATION LAB STUDY Patient: Blair Anderson Age: [...] manner. 3. Right radial artery access. A [id number] Glidesheath - Slender - .021sheath was advanced [...] complications. Contrast: Omnipaque 350 25ml (total dose). [id number] 125ml (wasted). Radiation: Fluoroscopy time: 15min. Total [...] + + !LV pressure s/d, ed !, dP/mx=1280zj Hg/s! + + + !Aortic pressure s/d (m)!106/58 (75) ! + + + ATTESTATION: Dr. Matta was present for the entire procedure. Dr. Jay Quan wasthe initial author of this report. Prepared and electronically signed by Irving Matta MD [id number]:27:50 [place] [id number] Final Result Performing Organization Address City/[facility]/ZIP Co de Phone Number [facility] * Transfuse Fresh Frozen Plasma Transfusion Rate: Per dept routine (10/14/2024 2:08 PM EDT) us lEeazar Nguyễn MD NURSING TREATMENT ORDER PAL - BLOOD ADMIN Final Result Performing Organization Address City/[facility]/ZIP Co de Phone Number EXTERNAL * Transfuse Platelets Transfusion Rate: Per dept routine (10/14/2024 12:43 PM EDT) Only the most recent of2 resultswithin the time period is included. us Eleazar Nguyễn MD NURSING TREATMENT ORDER PAL - BLOOD ADMIN Final Result Performing Organization Address [facility] Co de Phone Number EXTERNAL * ABO/Rh (10/14/2024 8:21 AM EDT) Only the most recent of5 resultswithin the time period is included. ABO Grouping O 10/14/2024 8:55 AM EDT [facility] Rh Type Positive 10/14/2024 8:55 AM EDT [facility] Blood 10/14/2024 8:21 AM EDT 10/14/2024 8:33 AM EDT us Eleazar Nguyễn MD BLOOD BANK TEST ORDERAB LES Final Result Performing Organization Address [facility] Co de Phone Number [facility] [address] * Antibody Screen (10/14/2024 8:21 AM EDT) Only the most recent of3 resultswithin the time period is included. Antibody Screen Negative 10/14/2024 9:11 AM EDT [facility] Blood 10/14/2024 8:21 AM EDT 10/14/2024 8:33 AM EDT Narrative [facility] - 10/14/2024 9:26 AM EDT Testing performed by [facility] Transfusion Service Eleazar Nguyễn MD BLOOD BANK TEST ORDERAB LES Final Result [facility] [address] [place] [address], [facility] * Cardiac Cath [...] mL of GADOBUTROL 1 MMOL/ML INTRAVENOUS SYRINGE ([facility]) administered intravenously COMPARISON: CT 09/03/2024. Ultrasound [...] mL of GADOBUTROL 1 MMOL/ML INTRAVENOUS SYRINGE ([facility])administered intravenously COMPARISON: CT 09/03/2024. Ultrasound 10/07/2024. [...] Rodriguez MD at 10/14/2024 12:02 PM EDT Kush Posada MD, PhD IMG MRI ORDERABLES [...] DO LAB BLOOD ORDERABLES Final Resul t [facility] [address] * Vancomycin, random (10/11/2024 3:02 AM EDT) Only the most recent of5 resultswithin the time period is included. Vancomycin Random 13.4 ug/mL 10/11/2024 3:37 AM EDT [facility] Comment:Reference range not established for this test. Plasma 10/11/2024 3:02 AM EDT 10/11/2024 3:08 AM EDT us Jodi FreireD LAB BLOOD ORDERABLES Final Result Performing Organization Address [facility] Co de Phone Number [facility] [address] * IR Paracentesis incl imaging guide [...] diagnostic and therapeutic paracentesis. Bakari Wahl CNP, Process Owner Procedure and Findings: The procedure was performed [...] Using ultrasound guidance, a 10 cm, 5-F Bragster Centesis catheter was placed into the right [...] for diagnostic andtherapeutic paracentesis. Bakari Wahl CNP, Process Owner Procedure and Findings: The procedure was performed [...] [facility] Fluid ABDOMEN / Unknown 10/10/2024 1:51 PM EDT 10/10/2024 3:56 PM EDT us Gerri Peterson MD MICROBIOLOGY - GENERAL ORDERABL ES Final Result [facility] [address] [id number], [facility] * (ABNORMAL) Body fluid cell count (10/10/2024 1:51 PM EDT) Only the most recent of5 resultswithin the time period is included. Color, Fluid Yellow(A) Colorless, Pale Yellow 10/10/2024 5:29 PM EDT HEALTH [facility] Clarity, Fluid Clear 10/10/2024 5:29 PM EDT [facility] Neutrophil %, Fluid 9 % 10/10/2024 5:29 PM EDT [facility] Lymphocytes %, Fluid 13 % 10/10/2024 5:29 PM EDT [facility] Mesothelial %, Fluid 6 % 10/10/2024 5:29 PM EDT [facility] Macrophage %, Fluid 72 % 10/10/2024 5:29 PM EDT [facility] RBC, Fluid 2,662 /uL 10/10/2024 4:41 PM EDT [facility] Total Nucleated Cells, Fluid 89 /uL 10/10/2024 4:41 PM EDT [facility] Comment:Total Nucleated Cell s represent WBCs and other nucleated cells in the fluid such as lining cells. Ascitic Fluid ABDOMEN / Unknown 1:51 PM EDT 10/10/2024 3:56 PM EDT us Gerri Peterson MD BODY FLUIDS AND STOOLS ORDERABL ES Final Result Performing Organization Address City/State/[facility] Co de Phone Number [facility] [address] * UPPER GI ENDOSCOPY (10/10/2024 11:48 AM EDT) 10/10/2024 11:4 8 AM EDT Narrative [facility] - 10/10/2024 12:34 PM EDT [id number] Procedure Date: 10/10/2024 11:48 AM Patient Name: Blair Anderson Date of : 1985 Admit Type: Inpatient Age: 39 Gender: Male Note Status: Finalized Attending MD: Lino Soto MD, [id number] Procedure: Upper GI endoscopy Indications: Gastroesopahgeal variceal [...] verified by the physician, the nurse, the apple thinner and the solar field service technician in the pre-procedure area in [...] to hypotension Procedure Code(s): --- Professional --- 02570, GC, Esophagogastroduodenoscopy, flexible, transoral; diagnostic, including collection of specimen(s) by brushing or washing, when performed (separate procedure) Diagnosis Code(s): --- Professional --- I85.00, Esophageal varices without bleeding K76.6, Portal hypertension K31.89, Other diseases of stomach and duodenum CPT copyright 2022 [employer]. All rights reserved. The codes documented in this report are preliminary and upon bolt man review may be revised to meet current [...] In: 12:10:16 PM Scope Out: 12:17:28 PM [address] [place], [address] us Provider Not In System PROCEDURE/MINOR SURGICAL ORDERABLES Final Result [facility] * ECHO STRESS W/ CONTRAST (10/09/2024 4:37 PM EDT) Anatomical Region Laterality Modality Chest Ultrasound 10/09/2024 2:40 PM EDT Narrative 10/09/2024 6:45 PM EDT * [facility]* [address] [place] [address] Stress Echocardiogram Patient: Blair Anderson Room: 8142 Height: 76in MR Number: [id number] : 1985 Weight: 262lb Account: [id number] Gender: M BP: 125 / 77 Study Date: 10/09/2024 Age: 39 BSA: 2.48m^2 Referring physician: Gerri Peterson Interpreting physician: Tonya Henriquez MD FELLOW Lisa Jha MD PERFORMING Tonya Henriquez MD DINING ROOM SERVER [employer] ORDERING Gerri Peterson REFERRING Gerri [...] was augmented by the addition of hand tar heater operator and leg lifts. The infusion was [...] at baseline or with provocation, shows no axaav-sd-xasx atrial level shunt. - Pulmonary arteries: Systolic [...] at baseline or with provocation, shows no ktcdm-ed-swfl atrial level shunt. Pulmonary artery: - Systolic [...] at baseline or with provocation, shows no ukeeq-ql-epne atrial level shunt. Pericardium: - There is [...] peak heart rate and blood pressure was 37475ms Hg/min. Stress testing did not produce any [...] Reviewed and confirmed by Tonya Henriquez MD [id number]:45:20 Procedure Note Tonya Henriquez MD - 10/09/2024 * [facility]* [address] [place], [place] [address] Stress Echocardiogram Patient: Blair Anderson Room: 8142 Height: 76in MR Number: [id number] : 1985 Weight: 262lb Account: [id number] Gender: M BP: 125 / 77 Study Date: 10/09/2024 Age: 39 BSA: 2.48m^2 Referring physician: Gerri Peterson Interpreting physician: Tonya Henriquez MD FELLOW Lisa Jha MD PERFORMING Tonya Henriquez MD DINING ROOM SERVER [employer] ORDERING Gerri Peterson REFERRING Gerri Peterson ATTENDING Tequila Newton ADMITTING Gómez Blanchard Procedure:STRESS ECHO - PHARMACOLOGIC Order: Indications: Pre-Operative Clearance (Z01.818). PMH: EtOH Use Disorder. Risk factors: Hypertension. Dyslipidemia. Study data: Height: 76in. 193cm. Weight: 262lb. 118.8kg. The previousstudy was not available, so comparison was made to the report of 07/15/2024. Study status: Routine. Procedure: [facility] baseline [facility] was recorded. Intravenous [...] was augmented by the addition of hand tar heater operator and leg lifts. The infusion was [...] at baseline or with provocation, shows no pbfzc-az-rlcv atrial level shunt. - Pulmonary arteries: Systolic [...] study at baseline or with provocation, showsno twwpt-um-lkcp atrial level shunt. Pulmonary artery: - Systolic [...] at baseline or with provocation, shows no wcizn-kj-ovpy atrial level shunt. Pericardium: - There is [...] heart rate). The maximal predicted heart rate [id number]. The target heart rate was 152bpm. The target heart rate was achieved.The heart rate response to stress is normal. There is a normal resting blood pressure with an appropriate response to stress. The rate-pressureproduct for the peak heart rate and blood pressure was 11793oc Hg/min. Stress testing did not produce any [...] 1-p A2C 27 ml/m^2 --------- E', lat regige, TDI (N) 10.8 cm/sec >=10.0 E/e', lat [...] Reviewed and confirmed by Tonya Henriquez MD [id number]:20 us Gerri Peterson MD CV ECHO ORDERABLES Final Result * Prepare RBC, leukoreduced, 1 Units (10/09/2024 6:16 AM EDT) Product Code [id number] HCLL Unit Number [id number] HCLL Dispense Status Presumed Transfused_PT HCLL Blood Expiration Date [id number] HCLL Coding System [id number] [facility] Blood Bank Product us Kush Posada MD, PhD BLOOD BANK PRODUCT OR DERABLES Final Result Performing Organization Address City/[facility]/ZIP Co de Phone Number HC[facility] * Renal Tx Recipient (10/09/2024 4:59 AM EDT) Renal Transplant Recipient The request and specimen(s) for this test have been received and transported to the [facility] at [address] [place] [address]. The [facility] will report results directly to the client. 10/09/2024 7:26 AM EDT [facility] Blood 10/09/2024 4:59 AM EDT 10/09/2024 7:26 AM EDT us Aaron Gonzalez MD LAB BLOOD ORDERABLES Final Resu lt [facility] [address] [place] [address], [facility] * Transfuse RBC Has consent been obtained? Yes; Transfusion Rate: Per dept routine (10/08/2024 1:17 PM EDT) us Kush Posada MD, PhD NURSING TREATMENT ORD ERABLES - BLOOD ADMIN Final Result EXTERNAL * (ABNORMAL) MMR(IgG) Panel (Measles, Mumps, Rubella) (10/08/2024 10:25 AM EDT) Only the most recent of2 resultswithin the time period is included. Mumps IgG Positive 10/08/2024 11:39 AM EDT [facility] MUMPS IGG NUM 99.00(H) 0.0 - 8.9 U/mL 10/08/2024 11:39 AM EDT [facility] Rubella IgG Scr Positive 10/08/2024 11:40 AM EDT [facility] RUB NUM 4.15(H) 0.00 - 0.89 INDEX 10/08/2024 11:40 AM EDT [facility] Rubeola Ab, IgG Positive 10/08/2024 11:39 AM EDT [facility] RUB IGG NUM 273.00(H) 0.00 - 13.40 U/mL 10/08/2024 11:39 AM EDT [facility] Serum 10/08/2024 10:2 5 AM EDT 10/08/2024 10:49 AM EDT Narrative [facility] - 10/08/2024 11:40 AM EDT [...] MD LAB BLOOD ORDERABLES Final Resu lt [facility] [address] * QuantiFERON TB2 Ag (10/08/2024 10:25 AM EDT) QuantiFERON TB2 Ag Value 0.07 10/10/2024 10:41 AM EDT [facility] Plasma 10/08/2024 10:2 5 AM EDT 10/08/2024 11:05 AM EDT Gerri Peterson MD LAB BLOOD ORDERABLES Final Resu lt [facility] [address] [facility]. [address] * QuantiFERON TB1 Ag (10/08/2024 10:25 AM EDT) QuantiFERON TB1 Ag Value 0.06 10/10/2024 10:41 AM EDT [facility] Plasma 10/08/2024 10:2 5 AM EDT 10/08/2024 11:05 AM EDT Result [facility] Gerri Peterson MD LAB BLOOD ORDERABLES Final Resu lt Performing Organization Address City/[facility]/ZIP Co de Phone Number [facility] [address] [facility]. [address] * QuantiFERON Nil (10/08/2024 10:25 AM EDT) QuantiFERON Nil 0.06 10:41 AM EDT [facility] Plasma 10/08/2024 10:2 5 AM EDT 10/08/2024 11:05 AM EDT Result [facility] Gerri Peterson MD LAB BLOOD ORDERABLES Final Resu lt [facility] [address] [facility] * QuantiFERON Mitogen (10/08/2024 10:25 AM EDT) QuantiFERON Interpretation Negative Negative 10/10/2024 10:41 AM EDT [facility] Comment:Negative result geovanny cates M. tuberculosis infection is NOT likely. Negative results do not preclude tuberculosis infection (especially in immunosuppressed patients). Negative results have a TB antigen minus Nil value less than 0.35 IU/mL. In cases with high suspicion of disease, retesting or additional testing with medical evaluation may be useful. QuantiFERON Mitogen 4.87 10/10 10:41 AM EDT [facility] Plasma 10/08/2024 10:2 5 AM [...] MD LAB BLOOD ORDERABLES Final Resu lt [facility] [address] * Iron Studies (Iron + TIBC) (10/08/2024 10:25 AM EDT) Iron 81 50 - 212 ug/dL 10/08/2024 11:23 AM EDT [facility] % Iron Saturation SEE COMMENT 15.0 - 55.0 % 10/08/2024 11:23 AM EDT [facility] Comment:Unable to calculate result because contributing result outside reportable range.. TIBC SEE COMMENT 261 - 462 ug/dL 10/08/2024 11:23 AM EDT [facility] Comment:Unable to calculate result because contributing result outside reportable range.. Serum 10/08/2024 10:2 5 AM EDT 10/08/2024 10:49 AM EDT Gerri Peterson MD LAB BLOOD ORDERABLES Final Resu lt [facility] [address] * (ABNORMAL) Vitamin D 25 Hydroxy (10/08/2024 10:25 AM EDT) Vit D, 25-Hydroxy 7.1(L) 30.0 - 100.0 ng/mL 10/08/2024 11:36 AM EDT [facility] Comment: Vitamin D deficiency has been defined by the [place] [employer] (IOM) and an Endocrine Society [...] MD LAB BLOOD ORDERABLES Final Resu lt [facility] [address] * (ABNORMAL) Hemoglobin A1C (10/08/2024 10:25 [...] Final Resu lt Performing Organization Address [facility]/ZIP Co de Phone Number [facility] [address] [facility]. [address] * (ABNORMAL) Ferritin (10/08/2024 10:25 AM EDT) Ferritin 706.9(H) 23.9 - 336.2 ng/mL 10/08/2024 11:35 AM EDT [facility] Serum 10/08/2024 10:2 5 AM EDT 10/08/2024 10:49 AM EDT Result [facility] Gerri Peterson MD LAB BLOOD ORDERABLES Final Resu lt Performing Organization Address [facility] Co de Phone Number [facility] [address] * Reticulocyte Count, Auto (10/08/2024 7:41 AM EDT) Retic Ct Pct 1.35 0.50 - 2.00 % 10/08/2024 9:12 AM EDT [facility] Retic Ct Abs 26,190 25,000 - 90,000 /uL 10/08/2024 9:14 AM EDT [facility] Immature Retic Fract 0.37 0.09 - 0.56 10/08/2024 9:12 AM EDT [facility] Whole Blood 10/08/2024 7:41 AM EDT 10/08/2024 8:51 AM EDT Result [facility] Gómez Blanchard MD LAB BLOOD ORDERABLES Final Res ult Performing Organization Address [facility] Co de Phone Number [facility] [address] [facility] * (ABNORMAL) Haptoglobin (10/08/2024 7:41 AM EDT) [facility] Haptoglobin <30(L) 44 - 215 mg/dL 10/08/2024 8:53 AM EDT [facility] Serum 10/08/2024 7:41 AM EDT 10/08/2024 7:51 AM EDT us Kush Posada MD, PhD LAB BLOOD ORDERABLES Final Result Performing Organization Address [facility] Co de Phone Number [facility] [address] * (ABNORMAL) Lactate dehydrogenase (10/08/2024 5:36 AM EDT) [facility] LD 102(L) 110 - 270 U/L 10/08/2024 8:20 AM EDT [facility] Plasma 10/08/2024 5:36 AM EDT 10/08/2024 7:58 AM EDT us Gómez Blanchard MD LAB BLOOD ORDERABLES Final Res ult Performing Organization Address [facility] Co de Phone Number [facility] [address] * Enteric Pathogen Panel (10/07/2024 10:50 PM EDT) Only the most recent of2 resultswithin the time period is included. [facility] Campylobacter Group (C. ecoli, C. jejuni, C. trino) Not Detected Not Detected 10/08/2024 4:40 AM EDT [facility] Salmonella species Not Detected Not Detected 10/08/2024 4:40 AM EDT [facility] Shigella species Not Detected Not Detected 10/08/2024 4:40 AM EDT [facility] Vibrio Group (Vibrio cholerae, Vibrio parahaemolyticus) Not Detected Not Detected 10/08/2024 4:40 AM EDT [facility] Yersinia enterocolitica Not Detected Not Detected 10/08/2024 4:40 AM EDT [facility] Shiga toxin 1 Not Detected Not Detected 10/08/2024 4:40 AM EDT [facility] Shiga toxin 2 Not Detected Not Detected 10/08/2024 4:40 AM EDT [facility] Norovirus Not Detected Not Detected 10/08/2024 4:40 AM EDT [facility] Rotavirus Not Detected Not Detected 10/08/2024 4:40 AM EDT [facility] [...] FLUIDS AND STOOLS ORDERABLE S Final Result [facility] [address] [place] [address], [facility] * Urine Drug Confirmation (10/07/2024 10:50 PM EDT) Only the most recent of2 resultswithin the time period is included. BARBITURATES NOT PRESENT 10/09/2024 1:33 PM EDT [facility] BENZODIAZEPINES PRESENT 5 1:33 PM EDT [facility] Nordiazepam 3 ng/mL 10/09/2024 1:33 PM EDT [facility] Temazepam 6 ng/mL 10/09/2024 1:33 PM EDT [facility] CANNABINOIDS NOT PRESENT 10/09/2024 1:33 PM EDT [facility] MEDICAL VOUCHER CLERK STIMULANTS NOT PRESENT 5 1:33 PM EDT [facility] OPIOID ANALGESICS PRESENT 025 1:33 PM EDT [facility] Oxycodone 300 ng/mL 10/09/2024 1:33 PM EDT [facility] Oxymorphone 32 ng/mL 10/09/2024 1:33 PM EDT [facility] Tramadol >1000 ng/mL 10/09/2024 1:33 PM EDT [facility] OPIOID ANTAGONISTS NOT PRESENT 10/09 1:33 PM EDT [facility] SEDATIVES/MUSCLE RELAXANTS NOT PRESENT 10/09/2024 1:33 PM EDT [facility] TRICYCLIC ANTIDEPRESSANTS NOT PRESENT 10/09/2024 1:33 PM EDT [facility] Urine 10/07/2024 10:5 0 PM EDT 10/08/2024 3:00 AM EDT Gerri Peterson MD URINE ORDERABLES Final Result Performing Organization Address [facility] de Phone Number [facility] [address] [facility] * Giardia Cryptosporidium Antigens (10/07/2024 10:50 PM EDT) Cryptosporidium Ag Negative Negative 2024 7:59 AM EDT [facility] Giardia Ag Negative Negative 10/08/2024 7:59 AM EDT [facility] Comment: Detection of Giardia and Cryptosporidium antigen is more sensitive and specific than microscopy. Because antigens are shed continuously, repeat testing is rarely warranted. Feces 10/07/2024 10:5 0 PM EDT 10/08/2024 1:53 AM EDT Comment:F Bisi Hernandez DO MICROBIOLOGY - GENERAL ORDERABLE S Final Result Performing Organization Address City/[facility] Co de Phone Number [facility] [address] [facility]. [address] * Comprehensive Drug Screen (10/07/2024 10:50 PM EDT) Only the most recent of2 resultswithin the time period is included. Creatinine, Ur CANCELED mg/dL 10/08/2024 7:09 AM EDT [facility] Comment:The released value 8 7.30 was canceled by YAQUELIN on 10/08/2024 07:09 BARBITURATES CANCELED [facility] Butalbital CANCELED [facility] Phenobarbital CANCELED [facility] Secobarbital CANCELED [facility] BENZODIAZEPINES CANCELED [facility] Alprazolam CANCELED [facility] Clonazepam CANCELED [facility] Diazepam CANCELED [facility] Alpha-Hydroxyalprazo mcknight CANCELED [facility] Lorazepam CANCELED [facility] Midazolam CANCELED [facility] Nordiazepam CANCELED [facility] Oxazepam CANCELED [facility] Temazepam CANCELED [facility] CANNABINOIDS CANCELED [facility] THC-COOH CANCELED [facility] MEDICAL VOUCHER CLERK STIMULANTS CANCELED [facility] Cocaine Metabolite(benzoylec gonine) CANCELED [facility] Amphetamine [facility]ELED [facility] Methamphetamine CANCELED [facility] MDA CANCELED [facility] MDEA CANCELED [facility] Phencyclindine (PCP) CANCELED [facility] OPIOID ANALGESICS CANCELED [facility] Heroin Metabolite(6-RAMONA) CANCELED [facility] Codeine CANCELED [facility] Morphine CANCELED [facility] Hydrocodone CANCELED [facility] Hydromorphone CANCELED [facility] Oxycodone CANCELED [facility] Oxymorphone CANCELED [facility] Meperidine CANCELED [facility] Normeperidine [facility]CELED [facility] Methadone CANCELED [facility] Methadone Metabolite (EDDP) CANCELED [facility] Tramadol CANCELED [facility] Fentanyl CANCELED [facility] Norfentanyl CANCELED [facility] Sufentanil CANCELED [facility] OPIOID ANTAGONISTS CANCELED [facility] Buprenorphine CANCELED [facility] Norbuprenorphine CANCELED [facility] Naltrexone CANCELED [facility] Naloxone CANCELED [facility] SEDATIVES/MUSCLE RELAXANTS CANCELED [facility] Carisoprodol CANCELED [facility] Meprobamate [facility]ELED [facility] TRICYCLIC ANTIDEPRESSANTS CANCELED [facility] Amitriptyline [facility]ELED [facility] Clomipramine CANCELED [facility] Desipramine [facility]ELED [facility] Doxepin CANCELED [facility] Imipramine CANCELED [facility] Nortriptyline [facility] Urine Creatinine CANCELED mg/dL [facility] Nitrite CANCELED [facility] Glutaraldehyde [facility]CELED [facility] pH CANCELED 10/08/2024 7:09 AM EDT [facility] Comment:The released value 5 .6 was canceled by MABLEE on 10/08/2024 07:09 Specific Barco CANCELED 10/09/19 7:09 AM EDT [facility] Comment:The released value 1 .009 was canceled by MABLEE on 10/08/2024 07:09 Bleach CANCELED [facility] Pyridinium Chlorochromate CANCELED [facility] Urine 10/07/2024 10:5 0 PM EDT 10/08/2024 2:07 AM EDT Narrative [facility] - 10/08/2024 7:09 AM EDT See accn [id number] us Gerri Peterson MD URINE ORDERABLES Edited Result - Final [facility] [address] [place] [address], [facility] * (ABNORMAL) Urine Drug Screen Reflex to Confirmation (10/07/2024 10:50 PM EDT) Only the most recent of2 resultswithin the time period is included. Amphetamine, 500 ng/mL Cutoff Negative Negative 10/08/2024 3:00 AM EDT [facility] Barbiturates UR, 300 ng/mL Cutoff Negative Negative 10/08/2024 3:00 AM EDT [facility] Buprenorphine, 5 ng/mL Cutoff Negative Negative 10/08/2024 3:00 AM EDT [facility] Benzodiazepines UR, 300 ng/mL Cutoff Negative Negative 10/08/2024 3:00 AM EDT [facility] Cocaine UR, 300 ng/mL Cutoff Negative Negative 10/08/2024 3:00 AM EDT [facility] Methadone, UR, 300 ng/mL Cutoff Negative Negative 10/08/2024 3:00 AM EDT [facility] Opiates UR, 300 ng/mL Cutoff Negative Negative 10/08/2024 3:00 AM EDT [facility] Oxycodone, 100 ng/mL Cutoff Presumptive Positive(A) Negative 10/08/2024 3:00 AM EDT [facility] Tricyclic Antidepressants, 300 ng/mL Cutoff Negative Negative 10/08/2024 3:00 AM EDT [facility] Comment:This test has been d eveloped and its performance characteristics determined by [facility] which is certified under [...] Cutoff Negative Negative 10/08/2024 3:00 AM EDT [facility] Comment:This is a screening method only and may be associated with false positive and/or false negative results. Results are not definitive without additional confirmatory testing by mass spectrometry. Fentanyl, 2 ng/mL Cutoff Negative Negative 10/08/2024 3:00 AM EDT [facility] Comment:This test has been d eveloped and its performance characteristics determined by [facility] which is certified under [...] PM EDT 10/08/2024 2:08 AM EDT Narrative [facility] - 10/08/2024 3:00 AM EDT CONFIRMATION TO FOLLOW Gerri Peterson MD URINE ORDERABLES Final Result [facility] [address] [place] [address], [facility] * Ova and Parasite Comprehensive w/ Giardia/Crypto (10/07/2024 10:50 PM EDT) O & P Method: Concentration and Trichrome Stain [facility] Results No Amoeba, Ova, Or Parasites Seen. -- O and P examination of additional specimens is recommended only for symptomatic patients, immunosuppressed patients or those with an appropriate travel history. [facility] Feces FECES / Unknown 10/07/2024 1 0:50 PM EDT 10/08/2024 1:53 AM EDT Comment:F Bisi Hernandez DO MICROBIOLOGY - GENERAL ORDERABLE S Final Result Performing Organization Address [facility] Co de Phone Number [facility] [address] [place] [address] * Hepatitis A Antibody Total (10/07/2024 6:38 PM EDT) Only the most recent of2 resultswithin the time period is included. Anti-HAV Total (IgG + IgM) Nonreactive 10/07/2024 7:53 PM EDT [facility] Serum 10/07/2024 6:38 PM EDT 10/07/2024 6:52 PM EDT Narrative [facility] - 10/07/2024 7:53 PM EDT HAV antibodies not detected Gerri Peterson MD LAB BLOOD ORDERABLES Final Resu lt Performing Organization Address [facility] Co de Phone Number [facility] [address] [place] [address]. [address] * Hepatitis A IgM (10/07/2024 6:38 PM EDT) Only the most recent of3 resultswithin the time period is included. Hep A IgM Nonreactive Nonreactive 10/07/2024 7:46 PM EDT [facility] Serum 10/07/2024 6:38 PM EDT 10/07/2024 6:52 PM EDT Narrative [facility] - 10/07/2024 7:46 PM EDT IgM anti-HAV not detected. Does not exclude the possibility of exposure to or infection with HAV. Levels of IgM anti-HAV may be below the cut-off in early infection. Gerri Peterson MD LAB BLOOD ORDERABLES Final Resu lt Performing Organization Address City/[facility]/ZIP Co de Phone Number [facility] [address] * Hepatitis C Antibody (10/07/2024 6:38 PM EDT) Only the most recent of3 resultswithin the time period is included. HCV Ab Nonreactive Nonreactive 10/07/2024 7:56 PM EDT [facility] Comment:Health Department no tified in accordance with reportable infectious disease guidelines. Serum 10/07/2024 6:38 PM EDT 10/07/2024 6:52 PM EDT Narrative [facility] - 10/07/2024 7:56 PM EDT Antibodies to HCV not detected; does not exclude the possibility of exposure to HCV. Gerri Peterson MD LAB BLOOD ORDERABLES Final Resu lt Performing Organization Address [facility] Co de Phone Number [facility] [address] [facility]. [address] * Hepatitis B Surface Antibody, Quantitati (10/07/2024 6:38 PM EDT) Only the most recent of2 resultswithin the time period is included. Hep B S Ab Nonreactive Nonreactive 10/07/2024 8:00 PM EDT [facility] HBSAB NUMBER 7.88 0.00 - 7.99 mIU/mL 10/07/2024 8:00 PM EDT [facility] Serum 10/07/2024 6:38 PM EDT 10/07/2024 6:52 PM EDT Narrative [facility] - 10/07/2024 8:00 PM EDT Individual is considered not immune to HBV infection. Result [facility] Gerri Peterson MD LAB BLOOD ORDERABLES Final Resu lt Performing Organization Address City/[facility]/ZIP Co de Phone Number [facility] [address] * Hepatitis B surface antigen (10/07/2024 6:38 PM EDT) Only the most recent of3 resultswithin the time period is included. Hep B Surface Ag Nonreactive Nonreactive 10/07/2024 7:51 PM EDT [facility] Comment:Health Department no tified in accordance with reportable infectious disease guidelines. Serum 10/07/2024 6:38 PM EDT 10/07/2024 6:52 PM EDT Narrative [facility]ALTH [facility] - 10/07/2024 7:51 PM EDT Specimen is considered negative for HBsAg. Gerri Peterson MD LAB BLOOD ORDERABLES Final Resu lt Performing Organization Address City/[facility]/ZIP Co de Phone Number [facility] [address] [place] [address]. [address] * Syphilis Screening (Trepia) (10/07/2024 6:37 PM EDT) Treponema Pallidum Negative Negative 10/07/2024 8:27 PM EDT [facility] Comment: No serological evidence of infection with Treponema pallidum (incubating or early primary syphilis cannot be excluded). Serum 10/07/2024 6:37 PM EDT 10/07/2024 6:50 PM EDT Gerri Peterson MD LAB BLOOD ORDERABLES Final Resu lt Performing Organization Address City/[facility]/ZIP Co de Phone Number [facility] [address] [facility]. [address] * Phosphatidylethanol Confirmation, B (10/07/2024 6:37 PM EDT) Only the most recent of6 resultswithin the time period is included. PETH 16:0/18.1 (POPETH) <10 Cutoff: 10 ng/mL 10/10/2024 10:42 AM EDT [facility] Comment: Phosphatidylethanol (PEth) homologues result [...] Cutoff: 10 ng/mL 10/10/2024 10:42 AM EDT [facility] Comment: PEth 16:0/18:2 (PLPEth) Reference ranges are not well established PEth Interpretation Negative. 10/10 10:42 AM EDT [facility] Comment: ADDITIONAL INFORMATION This report is intended for use in clinical monitoring and management of patients. It is not intended for use in employment-related testing. This test was developed and its performance characteristics determined by [facility] in a manner consistent with CLIA requirements. This test has not been cleared or approved by the U.S. Food and Drug Administration. Test Performed by: [facility] [place] [address] Roofing Applicator: Kathy Ortiz Ph.D.; CLIA# [id number] Whole Blood 10/07/2024 6:37 PM EDT 10/10/2024 10:42 AM EDT Gerri Peterson MD LAB BLOOD ORDERABLES Final Resu lt [facility] [address] [facility]. [address] * (ABNORMAL) CMV IgG Antibody (10/07/2024 6:37 PM EDT) CMV IgG Positive(A ) Negative 10/07/2024 8:26 PM EDT [facility] CMV IGG NUM 8.40(H) 0.00 - 0.59 U/mL 10/07/2024 8:26 PM EDT [facility] Serum 10/07/2024 6:37 PM EDT 10/07/2024 6:50 PM EDT us Gerri Peterson MD LAB BLOOD ORDERABLES Final Resu lt [facility] [address] [place] [address], [facility] * (ABNORMAL) Alpha 1 Antitrypsin AAT Quant & Mutation (10/07/2024 6:37 PM EDT) A-1 Antitrypsin 99(L) 101 - 187 mg/dL 10/09/2024 4:28 AM EDT [facility] A-1 Antitrypsin Pheno Comment 10/10/2024 4:05 PM EDT [facility] Comment: A1A Phenotype is consistent with a heterozygous phenotype consisting of one M (normal) allele and one allele that cannot be identified at this time. The unknown allele is not consistent with Z (deficient), S (deficient), or F (deficient). MM Phenotype is considered to be normal , producing normal serum levels of nxbxa-0-wtgalzgo inhibitor and not associated with clinical disease. [...] - 10/10/2024 4:08 PM EDT PERFORMED AT: [facility] [id number] GRAIN GRADER: Bassam Khalil, PhD PHONE: [phone] PERFORMED AT: [address] [id number] GRAIN GRADER: Mandy Abdul MD PHONE: [phone] Gerri Peterson MD LAB BLOOD ORDERABLES Final Resu lt Performing Organization Address [facility] Co de Phone Number [facility] [address] [facility]. [address] * Strongyloides Ab (10/07/2024 6:37 PM EDT) Strongyloides Ab Negative Negative 10/11/19 11:51 AM EDT [facility] Serum 10/07/2024 6:37 PM EDT 10/10/2024 12:07 PM EDT Narrative [facility] - 10/10/2024 12:07 PM EDT PERFORMED AT: [address] [id number] GRAIN GRADER: Mandy Abdul MD PHONE: [phone] Gerri Peterson MD LAB BLOOD ORDERABLES Final Resu lt Performing Organization Address [facility] de Phone Number [facility] [address] [facility]. [address] * Ethanol, Serum (10/07/2024 6:37 PM EDT) Only the most recent of3 resultswithin the time period is included. Ethanol <10 0 - 10 mg/dL 10/07/2024 8:36 PM EDT [facility] Serum 10/07/2024 6:37 PM EDT 10/07/2024 6:50 PM EDT Gerri Peterson MD LAB BLOOD ORDERABLES Final Resu lt Performing Organization Address City/[facility]/ZIP Co de Phone Number [facility] [address] * Katie-Watkins virus early antigen antibody, IgG (10/07/2024 6:37 PM EDT) Pathologist [facility] EBV Early Antigen Ab, IgG <9.0 0.0 - 8.9 U/mL 10/09/2024 2:16 PM EDT [facility] Comment: Negative < 9.0 Equivocal 9.0 - 10.9 Positive >10.9 Serum Frozen 10/07/2024 6:37 PM EDT 10/09/2024 3:07 PM EDT Narrative [facility] - 10/09/2024 3:07 PM EDT PERFORMED AT: [facility] [id number] GRAIN GRADER: Bassam Khalil, PhD PHONE: [phone] Gerri Peterson MD LAB BLOOD ORDERABLES Final Resu lt Performing Organization Address [facility] Co de Phone Number [facility] [address] [place] [address] * Toxoplasma gondii antibody, IgG (10/07/2024 6:37 PM EDT) Pathologist [facility] Toxoplasma Gondii IgG <3.0 0.0 - 7.1 IU/mL 10/09/2024 7:53 AM EDT [facility] Comment: Negative <7.2 Equivocal 7.2 - 8.7 Positive >8.7 Serum 10/07/2024 6:37 PM EDT 10/09/2024 8:07 AM EDT Narrative [facility] - 10/09/2024 8:07 AM EDT PERFORMED AT: [facility] [id number] GRAIN GRADER: Bassam Khalil, PhD PHONE: [phone] Gerri Peterson MD LAB BLOOD ORDERABLES Final Resu lt Performing Organization Address [facility] Co de Phone Number [facility] [address] [place] [address] * HIV-1 and HIV-2 Antibodies w Reflex (10/07/2024 6:37 PM EDT) HIV 1+2 AB/AGN Nonreactive Nonreactive 10/07/2024 7:54 PM EDT [facility] Serum 10/07/2024 6:37 PM EDT 10/07/2024 7:06 PM EDT Narrative [facility] - 10/07/2024 7:54 PM EDT \HIVRNR Gerri Peterson MD LAB BLOOD ORDERABLES Final Resu lt [facility] [address] * (ABNORMAL) Varicella zoster antibody, IgG (10/07/2024 6:37 PM EDT) Pathologist [facility] Varicella IgG Positive( A) Negative S/CO 10/07/2024 8:34 PM EDT [facility] Comment:Result indicates the presence of detectable VZV IgG antibodies. A positive result is generally indicative of exposure to the pathogen or administration of specific immunoglobulins, but it is no indication of active infection or stage of disease. This test is not approved for determining vaccine-induced immunity to varicella zoster virus. VZV NUM 6.76(H) 0.00 - 0.99 S/CO 10/07/2024 8:34 PM EDT [facility] Serum 10/07/2024 6:37 PM EDT 10/07/2024 6:50 PM EDT Gerri Peterson MD LAB BLOOD ORDERABLES Final Resu lt [facility] [address] [facility]. [address] * TSH (Thyroid Stimulating Hormone) (10/07/2024 6:37 PM EDT) Only the most recent of2 resultswithin the time period is included. Pathologist [facility] TSH 0.81 0.45 - 4.12 uIU/mL 10/07/2024 8:17 PM EDT [facility] Serum 10/07/2024 6:37 PM EDT 10/07/2024 6:50 PM EDT Gerri Peterson MD LAB BLOOD ORDERABLES Final Resu lt [facility] [address] [facility]. [address] * IgA (10/07/2024 6:37 PM EDT) IgA 227.0 70.0 - 400.0 mg/dL 10/08/2024 11:07 AM EDT [facility] Comment:Please interpret the se findings in conjunction with clinical findings, protein electrophoresis, and immunotyping/immunofixation results. Serum 10/07/2024 6:37 PM EDT 10/07/2024 6:50 PM EDT Gerri Peterson MD LAB BLOOD ORDERABLES Final Resu lt [facility] [address] [facility]. [address] * (ABNORMAL) Lipid Profile (10/07/2024 6:37 [...] - 149 mg/dL 10/07/2024 7:42 PM EDT [facility] HDL 4(L) 60 - 92 mg/dL 10/07/2024 7:42 PM EDT [facility] Comment: LIPID PROFILE INTERPRETATION CHOLESTEROL,TOTAL(mg/dL) [...] Cholesterol See Note mg/dL 7:42 PM EDT [facility] Comment:Unable to calculate result either because contributing result(s) are outside of reportable range or are not available. Plasma 10/07/2024 6:37 PM EDT 10/07/2024 7:06 PM EDT Narrative [facility] - 10/07/2024 7:42 PM EDT LDL cholesterol calculated using the Friedewald equation. us Gerri Peterson MD LAB BLOOD ORDERABLES Final Resu lt [facility] [address] [place] [id number], [facility] * X-ray Mandible [...] ORDERABL ES Final Result * US Duplex Dnd-Dha-Mhwbxyy Comp (10/07/2024 3:48 PM EDT) Only the [...] EXAM: US ABDOMEN COMPLETE EXAM: US DUPLEX [id number] COMPLETE INDICATION: elevated bilirubin COMPARISON: Ultrasound and [...] EXAM: US ABDOMEN COMPLETE EXAM: US DUPLEX [id number] COMPLETE INDICATION: elevated bilirubin COMPARISON: Ultrasound and [...] at 10/07/2024 4:26 PM EDT us Bisidante Hernandezana maría DOZIER [facility] US ORDERABLES Final Result * US Abdomen [...] EXAM: US ABDOMEN COMPLETE EXAM: US DUPLEX [id number] COMPLETE INDICATION: elevated bilirubin COMPARISON: Ultrasound and [...] EXAM: US ABDOMEN COMPLETE EXAM: US DUPLEX [id number] COMPLETE INDICATION: elevated bilirubin COMPARISON: Ultrasound and [...] MD at 10/07/2024 4:26 PM EDT Bisi Hernandez DO [facility] US ORDERABLES Final Result * AFP Tumor Marker (10/07/2024 6:00 AM EDT) Only the most recent of3 resultswithin the time period is included. [facility] AFP-Tumor Marker 2.0 0.0 - 9.0 ng/mL 10/07/2024 7:11 AM EDT [facility] Serum 10/07/2024 6:00 AM EDT 10/07/2024 6:39 AM EDT Narrative [facility] - 10/07/2024 7:11 AM EDT The testing method for AFP is a chemiluminescent immunoassay manufactured by [employer] Concentrations of AFP obtained by different assay methods or kits may vary and cannot be used interchangeably. AFP results cannot be interpreted as absolute evidence of the presence or absence of malignant disease. us Ni Rivrea MD LAB BLOOD ORDERABLES Final Resul t [facility] [address] [facility] [place] [id number], [facility] * Osmolality (10/06/2024 2:50 PM EDT) [facility] Osmolality, Measured 304 278 - 305 mOsm/kg 10/06/2024 3:49 PM EDT [facility] Serum 10/06/2024 2:50 PM EDT 10/06/2024 2:56 PM EDT Jani Vanegas MD LAB BLOOD ORDERABLES Final Resul t [facility] [address] [place] [address], [facility] * CT Head WO contrast (10/06/2024 1:56 [...] Posada MD, PhD IMG CT ORDERABLES Fin mo Result * Sodium, urine, random (10/06/2024 1:25 PM EDT) Only the most recent of6 resultswithin the time period is included. Sodium, Ur <10 mmol/L 10/06/2024 1:56 PM EDT [facility] Comment:Reference range not established for this test. Urine 10/06/2024 1:25 PM EDT 10/06/2024 1:32 PM EDT Jani Vanegas MD URINE ORDERABLES Final Result Performing Organization Address City/[facility]/ZIP Co de Phone Number [facility] [address] [place] [address] * Potassium, urine, random (10/06/2024 1:25 PM EDT) Only the most recent of4 resultswithin the time period is included. Potassium Urine Random 50.0 mmol/L 10/06/2024 1:56 PM EDT [facility] Comment:Reference range not established for this test. Urine 10/06/2024 1:25 PM EDT 10/06/2024 1:32 PM EDT Jani Vanegas MD URINE ORDERABLES Final Result Performing Organization Address City/[facility]/ZIP Co de Phone Number [facility] [address] [place] [address] * Osmolality, Urine (10/06/2024 1:25 PM EDT) Only the most recent of2 resultswithin the time period is included. Osmolality, Ur 386 50 - 1,200 mOsm/kg 10/06/2024 1:55 PM EDT [facility] Urine 10/06/2024 1:25 PM EDT 10/06/2024 1:32 PM EDT us Jani Vanegas MD URINE ORDERABLES Final Result Performing Organization Address [facility] de Phone Number [facility] [address] [facility] * Creatinine, Urine, Random (10/06/2024 1:25 PM EDT) Only the most recent of4 resultswithin the time period is included. Creatinine, Urine 87.40 mg/dL 10/06/2024 1:56 PM EDT [facility] Comment:Reference range not established for this test. Urine 10/06/2024 1:25 PM EDT 10/06/2024 1:32 PM EDT us Jani Vanegas MD URINE ORDERABLES Final Result Performing Organization Address [facility] de Phone Number [facility] [address] [facility] * Chloride, urine, random (10/06/2024 1:25 PM EDT) Only the most recent of4 resultswithin the time period is included. Chloride, Ur <15 mmol/L 10/06/2024 1:56 PM EDT [facility] Comment:Reference range not established for this test. Urine 10/06/2024 1:25 PM EDT 10/06/2024 1:32 PM EDT us Jani Vanegas MD URINE ORDERABLES Final Result Performing Organization Address [facility] Co de Phone Number [facility] [address] * Urinalysis w/Rfl to Microscopic (10/06/2024 11:51 AM EDT) Color, UA Yellow Yellow,Straw 10/06/2024 12:25 PM EDT [facility] Clarity, UA Clear Clear 10/06/2024 12:25 PM EDT [facility] Specific Barco, UA 1.014 1.005 - 1.035 10/06/2024 12:25 PM EDT [facility] pH, UA 6.0 5.0 - 8.0 10/06/2024 12:25 PM EDT [facility] Protein, UA Negative Negative mg/dL 10/06/2024 12:25 PM EDT [facility] Glucose, UA Negative Negative mg/dL 10/06/2024 12:25 PM EDT [facility] Ketones, UA Negative Negative mg/dL 10/06/2024 12:25 PM EDT [facility] Bilirubin, UA Negative Negative 10/06/2024 12:25 PM EDT [facility] Blood, UA Negative Negative 10/06/2024 12:25 PM EDT [facility] Nitrite, UA Negative Negative 10/06/2024 12:25 PM EDT [facility] Urobilinogen, UA <2.0 0.2 - 1.9 mg/dL 10/06/2024 12:25 PM EDT [facility] Leukocyte Esterase, UA Negative Negative 10/06/2024 12:25 PM EDT [facility] Urine 10/06/2024 11:5 1 AM EDT 10/06/2024 11:57 AM EDT Narrative [facility] - 10/06/2024 12:25 PM EDT Microscopic testing is not performed when the dipstick is negative for blood, leukocyte, protein and nitrite. us Bisi Hernandez DO URINE ORDERABLES Final Result [facility] [address] [place] [address], [facility] * Lactic Acid, STAT (10/06/2024 7:38 AM EDT) Only the most recent of5 resultswithin the time period is included. Lactate 0.9 0.5 - 2.2 mmol/L 10/06/2024 8:05 AM EDT [facility] Plasma 10/06/2024 7:38 AM EDT 10/06/2024 7:42 AM EDT Jani Vanegas MD LAB BLOOD ORDERABLES Final Resul t [facility] [address] [place] [id number], [facility] * (ABNORMAL) Venous Blood Gas, Line/Syringe, STAT (10/06/2024 7:37 AM EDT) Only the most recent of10 resultswithin the time period is included. PH-Line Draw 7.27(L) 7.32 - 7.42 10/06/2024 7:46 AM EDT [facility] PCO2-Line Draw 36(L) 41 - 51 mm Hg 10/06/2024 7:46 AM EDT [facility] PO2-Line Draw 44(H) 25 - 40 mm Hg 10/06/2024 7:46 AM EDT [facility] HCO3-Line Draw 17(L) 24 - 28 mmol/L 10/06/2024 7:46 AM EDT [facility] CO2 Content-Line Draw 18(L) 25 - 29 mmol/L 10/06/2024 7:46 AM EDT [facility] Base Excess-Line Draw -9.6(L) -2.0 - 3.0 mmol/L 10/06/2024 7:46 AM EDT [facility] %HBO2-Line Draw 69.8 40.0 - 70.0 % 10/06/2024 7:46 AM EDT [facility] Carboxyhgb-Ludivina e Draw 0.7 % 10/06/2024 7:46 AM EDT [facility] Comment: CARBOXYHEMOGLOBIN (CO) REFERENCE RANGES: Non-Smokers: <2 % Smokers: <8 % TOXIC: >20 % Methemoglobin- Line Draw 0.3 0.0 - 1.5 % 10/06/2024 7:46 AM EDT [facility] Reduced Hemoglobin-Ludivina e Draw 29.2(H) 0.0 - 5.0 % 10/06/2024 7:46 AM EDT [facility] Venous, Line Draw 10/06/2024 7:37 AM EDT 10/06/2024 7:43 AM EDT us Jain Vanegas MD LAB BLOOD ORDERABLES Final Resul t [facility] [address] [place] [id number], [facility] * (ABNORMAL) Comprehensive Metabolic Panel (10/06/2024 7:37 AM EDT) Only the most recent of6 resultswithin the time period is included. Sodium 129(L) 133 - 146 mmol/L 10/06/2024 8:16 AM EDT [facility] Potassium 4.4 3.5 - 5.3 mmol/L 10/06/2024 8:16 AM EDT [facility] Chloride 100 98 - 110 mmol/L 10/06/2024 8:16 AM EDT [facility] CO2 18(L) 21 - 33 mmol/L 10/06/2024 8:16 AM EDT [facility] Anion Gap 11 3 - 16 mmol/L 10/06/2024 8:16 AM EDT [facility] BUN 62(H) 7 - 25 mg/dL 10/06/2024 8:16 AM EDT [facility] Creatinine 3.40(H) 0.60 - 1.30 mg/dL 10/06/2024 8:16 AM EDT [facility] Glucose 98 70 - 100 mg/dL 10/06/2024 8:16 AM EDT [facility] Calcium 9.5 8.6 - 10.3 mg/dL 10/06/2024 8:16 AM EDT [facility] Total Bilirubin 14.3(H) 0.0 - 1.5 mg/dL 10/06/2024 8:16 AM EDT [facility] AST 57(H) 13 - 39 U/L 10/06/2024 8:16 AM EDT [facility] ALT 29 7 - 52 U/L 10/06/2024 8:16 AM EDT [facility] Alkaline Phosphatase 158(H) 36 - 125 U/L 10/06/2024 8:16 AM EDT [facility] Total Protein 5.6(L) 6.4 - 8.9 g/dL 10/06/2024 8:16 AM EDT [facility] Albumin 3.6 3.5 - 5.7 g/dL 10/06/2024 8:16 AM EDT [facility] Osmolality, Calculated 286 278 - 305 mOsm/kg 10/06/2024 8:16 AM EDT [facility] EGFR 22 10/06/2024 8:16 AM EDT [facility] [...] AM EDT 10/06/2024 7:43 AM EDT us Jani Vanegas MD LAB BLOOD ORDERABLES Final Resul t [facility] [address] * (ABNORMAL) Salicylate Level (10/06/2024 4:01 AM EDT) Salicylate Lvl <3(L) 10 - 30 mg/dL 10/06/2024 4:58 AM EDT [facility] Serum 10/06/2024 4:01 AM EDT 10/06/2024 4:22 AM EDT us Bisi Hernandez DO LAB BLOOD ORDERABLES Final Resul t [facility] [address] [place] [address], [facility] * Upper Respiratory Viral/Bacterial Panel-AUDIO TAPE LIBRARIAN Only (10/06/2024 3:12 AM EDT) Pathologist [facility] Adenovirus Not Detected Not Detected 10/06/2024 11:38 PM EDT [facility] Coronavirus (229E,HKU1,NL63,OC 43) Not Detected Not Detected 10/06/2024 11:38 PM EDT [facility] SARS-CoV-2 Not Detected Not Detected 10/06/2024 11:38 PM EDT [facility] Human Metapneumovirus Not Detected Not Detected 10/06/2024 11:38 PM EDT [facility] Human Rhinovirus/Enterov irus Not Detected Not Detected 10/06/2024 11:38 PM EDT [facility] Influenza A Not Detected Not Detected 10/06/2024 11:38 PM EDT [facility] Influenza A H1 Not Detected Not Detected 10/06/2024 11:38 PM EDT [facility] Influenza A/H1-2009 Not Detected Not Detected 10/06/2024 11:38 PM EDT [facility] Influenza A H3 Not Detected Not Detected 10/06/2024 11:38 PM EDT [facility] Influenza B Not Detected Not Detected 10/06/2024 11:38 PM EDT [facility] Parainfluenza 1 Not Detected Not Detected 10/06/2024 11:38 PM EDT [facility] Parainfluenza 2 Not Detected Not Detected 10/06/2024 11:38 PM EDT [facility] Parainfluenza 3 Not Detected Not Detected 10/06/2024 11:38 PM EDT [facility] Parainfluenza 4 Not Detected Not Detected 10/06/2024 11:38 PM EDT [facility] Resp. Syncycial Virus A Not Detected Not Detected 10/06/2024 11:38 PM EDT [facility] Resp. Syncycial Virus B Not Detected Not Detected 10/06/2024 11:38 PM EDT [facility] Chlamydia pneumoniae Not Detected Not Detected 10/06/2024 11:38 PM EDT [facility] Mycoplasma pneumoniae Not Detected Not Detected 10/06/2024 11:38 PM EDT [facility] Comment: The Respiratory Viral-Bacterial Panel [...] sent to the [facility] in accordance with state requirements. For a fact sheet for healthcare providers, see https://www.fda.gov/media/077098/download. For a fact sheet for patients, see https://www.fda.gov/media/031993/download. Nasopharyngeal Swab NASOPHARYNGEAL SWAB / Unknown 10/06/2024 3:12 AM EDT 10/06/2024 5:41 PM EDT Comment:AUDIO TAPE LIBRARIAN Bisi Hernandez DO BODY FLUIDS AND STOOLS ORDERABLE S Final Result [facility] [address] [place], [place] [address] * X-ray Portable Chest [...] ORDERABLE S Final Result * Thyroid Function Lasalle (10/06/2024 1:04 AM EDT) TSH 0.84 0.45 - 4.12 uIU/mL 10/06/2024 2:20 AM EDT [facility] Serum 10/06/2024 1:04 AM EDT 10/06/2024 1:39 AM EDT [employer] [facility] DOZIER LAB BLOOD ORDERABLES Final Resul t [facility] [address] [place] [address], [facility] * #2 Blood culture-Peripheral site 2 (10/06/2024 1:04 AM EDT) Only the most recent of6 resultswithin the time period is included. Culture Result No Growth After 5 Days [facility] Blood BLOOD SPECIMEN / Unknown 10/06/2024 1:04 AM EDT 10/06/2024 4:57 AM EDT Narrative [facility] - 10/11/2024 5:05 AM EDT Suboptimal volume of blood received. Interpret results with caution. Bisi Hernandez DO MICROBIOLOGY - GENERAL ORDERABLE S Final Result Performing Organization Address City/[facility]/ZIP Co de Phone Number [facility] [address] [place] [address]. [address] * (ABNORMAL) Acetaminophen Level (10/06/2024 1:04 AM EDT) Pathologist [facility] Acetaminophen Level <10(L) 10 - 30 ug/mL 10/06/2024 2:08 AM EDT [facility] Serum 10/06/2024 1:04 AM EDT 10/06/2024 1:30 AM EDT Bisi Hernandez DO LAB BLOOD ORDERABLES Final Resul t Performing Organization Address City/[facility]/ZIP Co de Phone Number [facility] [address] [place] [address]. [address] * Renal Function Panel, Fasting (09/16/2024 12:20 PM EDT) Pathologist [facility] EGFR 31 Anion Gap 14.3 <=30 mmol/L Plasma Gerri Peterson MD LAB BLOOD ORDERABLES Final Resu lt * (ABNORMAL) Differential (09/16/2024 12:20 PM EDT) Only the most recent of6 resultswithin the time period is included. Neutrophils Relative 84.2 Immature Granulocytes (%) 0.5 Immature Granulocytes Absolute 0.05 nRBC 0 Absolute Lymphocytes 0.8 Lymphocytes Relative 8.0 Eosinophils Relative 1.5 Basophils Relative 0.7 Monocytes Relative 5.1 Monocytes Absolute 0.5 RDW 21.4(A) 11.5 - 14.5 % Eosinophils Absolute 0.2 / L Basophils Absolute 0.1 / L MCHC 36.1 30 - 37 g/dL MPV 12.3(A) 7.5 - 11.5 fL Whole Blood Result [facility] Gerri Peterson MD LAB BLOOD ORDERABLES Final Resu lt * CBC and differential (09/16/2024 12:20 PM EDT) Pathologist [facility] Neutrophils Absolute 8.4 / L Blood Result [facility] Gerri Peterson MD LAB BLOOD ORDERABLES Final Resu lt * Glucose, random (09/16/2024 12:20 PM EDT) [facility] Glucose 97 60 - 200 mg/dL Plasma Result [facility] Gerri Peterson MD LAB BLOOD ORDERABLES Final Resu lt * (ABNORMAL) Hepatic function panel (09/16/2024 12:20 PM EDT) Pathologist [facility] Alkaline Phosphatase 144 U/L ALT 40 U/L AST 76 U/L Total Bilirubin 19.8(A) 0.1 - 1.4 mg/dL Protein, Total 6.3 Albumin 3.4(A) 3.5 - 5.0 g/dL Blood Result [facility] Gerri Peterson MD LAB BLOOD ORDERABLES Final Resu lt * (ABNORMAL) Renal Function Panel w/o EGFR (09/16/2024 12:20 PM EDT) Pathologist [facility] Creatinine 2.30 BUN 31(A) 4 - 21 mg/dL Potassium 3.3(A) 3.4 - 5.3 mmol/L Sodium 136(A) 137 - 147 mmol/L Chloride 110(A) 99 - 108 mmol/L Calcium 9.3 8.7 - 10.7 mg/dL Blood us Gerri Peterson MD LAB BLOOD ORDERABLES [...] MICROBIOLOGY - GENERAL ORDERA BLES Final Result [facility] [address] * PARACENTESIS (09/09/2024 2:19 PM EDT) Narrative [...] for SBPprophylaxis. Will continue indefinitely. NAA RODRIGUEZ Ashley JACOME PROCEDURE/MINOR SURGICAL ORDE LILIA Final Result * (ABNORMAL) Clostridium difficile DNA [...] AM EDT 09/09/2024 6:44 AM EDT Comment:F Result [facility] Kathie Bauer MD BODY FLUIDS AND STOOLS ORDERA BLES Final Result Performing Organization Address [facility] de Phone Number [facility] [address] [facility]. [address] * Clostridium Difficile Toxin A/B Antigen (09/09/2024 4:58 AM EDT) Pathologist [facility] CDIFF Tox AGN Negative Negative 09/09/2024 1:57 [...] AM EDT 09/09/2024 11:57 AM EDT Comment:F Result [facility] Kathie Bauer MD BODY FLUIDS AND STOOLS ORDERA BLES Final Result Performing Organization Address [facility]/ZIP Co de Phone Number [facility] [address] [facility]. [address] * Phosphorus, AM (09/05/2024 7:24 AM EDT) Only the most recent of5 resultswithin the time period is included. Phosphorus 2.1 2.1 - 4.7 mg/dL 09/05/2024 8:25 AM EDT [facility] Plasma 09/05/2024 7:24 AM EDT 09/05/2024 7:38 AM EDT us Kiet Ramirez MD LAB BLOOD ORDERABLES Denisse valle Result [facility] [address] [place] [address], [facility] * (ABNORMAL) Basic Metabolic panel, AM (09/05/2024 [...] - 10.3 mg/dL 09/05/2024 8:25 AM EDT [facility] [...] ORDERABLES Denisse l Result Performing Organization Address City/[facility]/ZIP Co de Phone Number [facility] [address] * ECG 12 lead (MUSE) (09/05/2024 4:57 AM EDT) 09/05/2024 4:57 AM EDT Narrative MUSE - 09/06/2024 7:31 AM EDT Ventricular Rate: 78 BPM Atrial Rate: 78 BPM P-R Interval: 196 ms QRS Duration: 100 ms QT: 362 ms QTc: 412 ms P Earlington: 69 degrees R Earlington: -23 degrees T Ear[place]: 10 degrees Diagnosis Line: NORMAL SINUS RHYTHM ^ NONSPECIFIC T WAVE CHANGE ^ ABNORMAL ECG ^ ^ Confirmed by MD AKERS JULIANE ([id number]) on 09/06/2024 7:31:28 AM us Kathie Bauer MD ECG ORDERABLES Final Result Performing Organization Address City/[facility]/ZIP Co de Phone Number MUSE * Fluid Creatinine (09/04/2024 11:01 AM EDT) Pathologist Yemi Creat, Fluid 3.17 mg/dL 09/04/2024 6:15 PM EDT [facility] Comment:Reference range not established for this test. Abdominal Fluid ABDOMEN / Unknown 025 11:01 AM EDT 09/04/2024 5:25 PM EDT Narrative [facility] - 09/04/2024 6:15 PM EDT This assay has been modified from the asphalt smoother's specifications and has been validated with performance characteristics determined by [facility] in accordance with federal regulations [...] OR DERABLES Final Result Performing Organization Address [facility] Co de Phone Number [facility] [address] [place] [address]. [address] * Protein, Body fluid (09/04/2024 11:01 AM EDT) Only the most recent of3 resultswithin the time period is included. Protein, Fluid <3.0 g/dL 09/04/2024 6:15 PM EDT [facility] Comment:Reference range not established for this test. Ascitic Fluid ABDOMEN / Unknown 11:01 AM EDT 09/04/2024 5:25 PM EDT [facility] - 09/04/2024 6:15 PM EDT This assay has been modified from the asphalt smoother's specifications and has been validated with performance characteristics determined by [facility] in accordance with federal regulations [...] OR DERABLES Final Result Performing Organization Address [facility] Co de Phone Number [facility] [address] * Albumin, fluid (09/04/2024 11:01 AM EDT) [...] This assay has been modified from the asphalt smoother's specifications and has been validated with performance characteristics determined by [facility] in accordance with federal regulations under the Clinical Laboratory Act Amendment of 1988. The modification has not been approved by the FDA which has determined that such approval is not necessary. The test is for clinical purposes and should not be regarded as investigational or for research use. Kiet Ramirez MD BODY FLUIDS AND STOOLS OR DERABLES Final Result [facility] [address] * Calcium Free, Serum (09/04/2024 5:22 [...] and its performance characteristics determined by [facility] which is certified under [...] ORDERABLES Denisse l Result Performing Organization Address City/[facility]/ZIP Co de Phone Number [facility] [address] [facility]. [address] * Lipase (09/04/2024 5:22 AM EDT) Only the most recent of4 resultswithin the time period is included. Pathologist [facility] Lipase 40 4 - 82 U/L 09/04/2024 11:41 AM EDT [facility] Plasma 09/04/2024 5:22 AM EDT 09/04/2024 11:23 AM EDT us Kiet Ramirez MD LAB BLOOD ORDERABLES Denisse l Result Performing Organization Address [facility] Co de Phone Number [facility] [address] [facility]. [address] * MRSA/Staph aureus DNA ??? Diagnostic testing for pneumonia (09/03/2024 3:21 PM EDT) [facility] MRSA, PCR Negative Negative 09/03/2024 7:48 PM [...] EDT Diagnosis of MRSA Pneumonia->Yes - Place [id number] (this order) Kiet Ramirez MD MICROBIOLOGY - GENERAL OR DERABLES Final Result Performing Organization Address [facility] Co de Phone Number [facility] [address] * (ABNORMAL) Urine Drug Screen without Confirmation, [...] eveloped and its performance characteristics determined by [facility] which is certified under [...] eveloped and its performance characteristics determined by [facility] which is certified under [...] Final Re sult Performing Organization Address [facility]/ZIP Co de Phone Number [facility] [address] [facility]. [address] * Urea Nitrogen, Urine (09/03/2024 3:21 PM EDT) Only the most recent of2 resultswithin the time period is included. Urea Nitrogen, Ur 350 mg/dL 09/03/2024 4:12 PM EDT [facility] Comment:Reference range not established for this test. Urine 09/03/2024 3:21 PM EDT 09/03/2024 3:30 PM EDT Kiet Ramirez MD URINE ORDERABLES Final Re sult Performing Organization Address [facility] Co de Phone Number [facility] [address] [facility]. [address] * Hepatitis B Core IgM (09/03/2024 1:43 PM EDT) Hep B Core IgM Nonreactive Nonreactive 09/03/2024 3:50 PM EDT [facility] Serum 09/03/2024 1:43 PM EDT 09/03/2024 2:17 PM EDT Narrative [facility] - 09/03/2024 3:50 PM EDT The result will be immediately released to [facility] when marked final. Do you believe the result release to [facility] should be delayed based on either the Preventing Harm or Privacy exceptions of the Cures Rule?->No IgM anti-HBc not detected. Does not exclude the possibility of exposure to or infection with HBV. Kiet Ramirez MD LAB BLOOD ORDERABLES Denisse l Result Performing Organization Address [facility] Co de Phone Number [facility] [address] [facility]. [address] * T4, Free (09/03/2024 1:43 PM EDT) Free T4 0.74 0.61 - 1.76 ng/dL 09/03/2024 6:34 PM EDT [facility] Comment:Biotin megadosing (c onsumption >300 mcg/day) may falsely elevate free T4. When indicated, discontinue megadosing for 1 week and repeat testing. Serum 09/03/2024 1:43 PM EDT 09/03/2024 2:17 PM EDT Kiet Ramirez MD LAB BLOOD ORDERABLES Denisse l Result Performing Organization Address [facility]/ZIP Co de Phone Number [facility] [address] [place] [address] [address] * (ABNORMAL) Urinalysis, Microscopic (09/03/2024 10:28 AM EDT) Only the most recent of3 resultswithin the time period is included. RBC, UA 1 0 - 3 /HPF 09/03/2024 11:51 AM EDT [facility] WBC, UA 1 0 - 5 /HPF 09/03/2024 11:51 AM EDT [facility] Squam Epithel, UA <1 0 - 5 /HPF 09/03/2024 11:51 AM EDT [facility] Bacteria, UA Occasional (A) None Seen /HPF 09/03/2024 11:51 AM EDT [facility] Mucus, UA Present(A) None Seen /HPF 09/03/2024 11:51 AM EDT [facility] Urine 09/03/2024 10:2 8 AM EDT 09/03/2024 11:24 AM EDT Kiet Ramirez MD URINE ORDERABLES Final Re sult Performing Organization Address [facility]/ZIP Co de Phone Number [facility] [address] [place] [address] [address] * (ABNORMAL) Urinalysis-Macroscopic w/Rfx to Microsco (09/03/2024 10:28 AM EDT) Only the most recent of3 resultswithin the time period is included. Color, UA Yellow Yellow,Straw 09/03/2024 11:51 AM EDT [facility] Clarity, UA Cloudy(A) Clear 09/03/2024 11:51 AM EDT [facility] Specific Barco, UA >1.035(H) 1.005 - 1.035 09/03/2024 11:51 [...] Re sult [facility] [address] [place] [address], [facility] * Lactic acid, venous (09/03/2024 7:55 AM EDT) Only the most recent of3 resultswithin the time period is included. Lactate, Shakeel 1.8 0.5 - 2.2 mmol/L 09/03/2024 8:02 AM EDT [facility] Whole Blood VENOUS STRUCTURE / Unknown 09/03/2024 7:55 AM EDT 09/03/2024 7:59 AM EDT us Jarrod Alas MD LAB BLOOD ORDERABLES Final Res ult Performing Organization Address City/[facility]/ZIP Co de Phone Number [facility] [address] * High Sensitivity Troponin (60min) (09/03/2024 7:18 [...] ORDERABLES Final Resul t Performing Organization Address City/[facility]/ZIP Co de Phone Number [facility] [address] * Paracentesis (09/03/2024 7:01 AM EDT) Narrative Ana Maria aRmey MD - 09/03/2024 7:01 AM EDT Rommel Garland MD 09/03/2024 7:02 AM Paracentesis Date/Time: 09/03/2024 7:01 AM Performed by: Rommel Garland MD Authorized by: Ana Maria Ramey MD Consent: Consent obtained: Written Consent given by: Patient Risks, benefits, and alternatives were discussed: yes Risks discussed: Bleeding, bowel perforation, infection and pain Alternatives discussed: No treatment [place] protocol: Procedure explained and questions answered to [...] QT: 456 ms QTc: 557 ms P Ear[place]: 76 degrees R Ear[place]: -37 degrees T [place]: 16 degrees Diagnosis Line: INTERPRETATION NOT AVAILABLE--ECG READ IN ER ^ Reconfirmed by PHYSICIAN, ER ([id number]), scientific editor Tonya BUTLER ([id number]) on 09/03/2024 8:00:24 [...] Hansen MD at 08/14/2024 2:17 PM EDT us Mak Armenta [facility] IMG DIAGNOSTIC IMAGING O RDERABLES Final [...] and bowel perforation Alternatives discussed: No treatment [place] protocol: Procedure explained and questions answered to [...] Fluid 18 mg/dL 08/14/2024 1:58 PM EDT [facility] Comment:Reference range not established for this test. Fluid ABDOMEN / Unknown 08/14/2024 12:31 PM EDT 08/14/2024 1:31 PM EDT Narrative [facility] - 08/14/2024 1:58 PM EDT This assay has been modified from the asphalt smoother's specifications and has been validated with performance characteristics determined by [facility] in accordance with federal regulations [...] ORDERABL ES Final Result Performing Organization Address [facility] de Phone Number [facility] [facility] [address] * Amylase, Body fluid (08/14/2024 12:31 PM EDT) Amylase, Fluid 20 U/L 08/14/2024 2:00 PM EDT [facility] Comment:Reference range not established for this test. Abdominal Fluid ABDOMEN / Unknown 025 12:31 PM EDT 08/14/2024 1:31 PM EDT Narrative [facility] - 08/14/2024 2:00 PM EDT This assay has been modified from the asphalt smoother's specifications and has been validated with performance characteristics determined by [facility] in accordance with federal regulations [...] ORDERABL ES Final Result Performing Organization Address [facility] de Phone Number [facility] [address] * Cytology, Peritoneal Fluid (08/14/2024 12:00 AM EDT) Peritoneal Fluid 08/14/2024 08/15/19 Narrative [facility] - 08/14/2024 12:00 AM EDT CASE: [id number] PATIENT: BLAIR ANDERSON Clinical History: 39M with decompensated EtOH cirrhosis Clinical Diagnosis: 39M with decompensated EtOH cirrhosis Specimen Source: A. Peritoneal Fluid Gross Description: Received 25ml Yellow Fluid CPT Code(s): 77384 X 1 Additional Information: DIAGNOSIS: Peritoneal Fluid (ThinPrep only): NO MALIGNANT CELLS IDENTIFIED INFLAMMATION: Mild acute and chronic inflammation Initial Evaluation performed by Jess CHAMBERS(ASCP) S3B Multi Sensor Operator Electronically signed 08/15/2024 11:12:00 AM The Diagnostician signing this report is located at [facility], [address] [place] [address], [id number], , CLIA ID: [id number] Final Diagnosis performed by RORO CABALLERO MD, PhD Pathologist Electronically signed 08/15/2024 11:27:00 AM The Pathologist signing this report is located at [facility], [address] [place] [address], [id number], , CLIA ID: [id number] us Dex Jackman MD PATHOLOGY/CYTOLOGY ORDERABLES F [...] when the images were obtained by the boring and filling machine operator AND/OR I reviewed the images after they were obtained. I have reviewed the interpretation by the boring and filling machine operator, made any necessary edits and [...] ascites Views Obtained: Select all areas imaged (tour sales representative images/clips obtained): abdomen Findings: Other Findings: Moderate volume ascites noted Interpretation: Positive FAST FAST interpretation details: intra-abdominal fluid seen Attending Attestation: I (the Attending) was present when the images were obtained by the boring and filling machine operator AND/OR I reviewed the images after they were obtained. I have reviewed the interpretation by the boring and filling machine operator, made any necessary edits and [...] EXAM: US ABDOMEN LIMITED EXAM: US DUPLEX [id number] COMPLETE INDICATION: Other - Must specify in [...] EXAM: US ABDOMEN LIMITED EXAM: US DUPLEX [id number] COMPLETE INDICATION: Other - Must specify in [...] Castro MD at 07/28/2024 7:33 AM EDT Doron Botello MD IMG US ORDERABLES Final Re sult * Potassium (07/26/2024 6:44 AM EDT) Only the most recent of3 resultswithin the time period is included. Potassium 3.5 3.5 - 5.3 mmol/L 07/26/2024 7:34 AM EDT [facility] Plasma 07/26/2024 6:44 AM EDT 07/26/2024 6:54 AM EDT Mariola Farrell MD LAB BLOOD ORDERABLES Final Res ult [facility] [address] [place] [address], [facility] * ED HCV Ab Reflex To HCV Quant (07/25/2024 3:35 PM EDT) HCV Ab Nonreactive Nonreactive 07/25/2024 6:17 PM EDT [facility] Comment:Health Department no tified in accordance with reportable infectious disease guidelines. HCVAB Number 0.11 0.00 - 0.79 S/CO 07/25/2024 6:17 PM EDT [facility] Serum 07/25/2024 3:35 PM EDT 07/25/2024 3:49 PM EDT us Sanchez Mathews MD LAB BLOOD ORDERABLES Final Resul t [facility] [address] [place] [address], [facility] from Last 3 Months Additional Health Concerns Infection Onset Date Last Indicated C. difficile 09/09/2024 09/09/[address] [place] [id number] [facility] GLOBAL [facility] GLOBAL Advance Directives For more information, please contact: [phone] * Full Code (Latest Code Status on File) Date Activated Date Inactivated Comments 10/05/2024 11:47 PM 10/17/2024 2:49 PM * Full Code Date Activated Date Inactivated Comments 09/03/2024 9:42 AM 09/09/2024 10:30 PM * Full Code Date Activated Date Inactivated Comments 08/12/2024 9:55 PM 08/19/2024 4:56 PM * Full Code Date Activated Date Inactivated Comments 07/25/2024 10:25 PM 07/29/2024 6:17 PM Care Teams Windshield Technician Relationship Specialty Start Date End Date Enedina Mcguire NP [address] [place] [address] PCP - General Internal Medicine 10/05/24
--- OUTSIDE RECORDS SUMMARY | 2024-10-21 07:52 | XMS_ITS | Encounter Summary ---
Author Organization [facility] Address [address] [place] [address] Care Team Providers Care Dock Hand Name Role Phone Enedina Mcguire NP Primary Care Provider [phone] Source Comments This information has been disclosed [...] release of HIV test results or diagnoses. [id number] Health Encounter Details Date Type Department Care Team (Late st Contact Info) Description 10/14/2024 Chart Note [facility] Kidney Transplant at [address] [place] [phone] Dean Robles [facility] [address] Social History Tobacco Use Types Packs/Day Years Used Date Smoking Tobacco: Former Cigarettes Smokeless Tobacco: Current Alcohol Use Standard Drinks/Week Comments Yes 0 (1 standard drink = 0.6 oz pure alcohol) History of alcohol abuse, reports no use in 3 week- typically endorses use as 4 glasses of wine a days Utilities Answer Date Recorded In the past 12 months has [employer], [employer], oil, or water [employer] threatened to shut off services in your [...] - 10/14/2024 9:49 AM EDT Dean berman [facility] [address] Case opened TAYLOR Almeida ph [phone] Fx [phone] Liver requested urgent review for slk Approved by [facility] letter to files documented in this encounter Plan of Treatment Upcoming Encounters Date Type Department Care Team (Late st Contact Info) Description 12/05/2024 8:01 AM EDT Hospital Encounter [facility] ENDOSCOPY [address] [place] [address] Chris Orosco MD [address] [place] [phone] 12/05/2024 8:01 AM EDT - 12/05/2024 8:31 AM EDT Surgery [facility] ENDOSCOPY [address] [place] [address] Chris Orosco MD [address] [place] [phone] EGD Scheduled Procedures Name Priority Associated Diagnoses Date/Ti me EGD Cirrhosis of liver with ascites, unspecified hepatic cirrhosis type ([facility]-HCC) 12/05/2024 8:01 AM EDT documented as of this encounter Visit Diagnoses Not on filedocumented in this encounter Additional Health Concerns Infection Onset Date Last Indicated Resolved Time C. difficile 09/09/2024 09/09/2024 Assessment Noted Time PHQ-9 Depression Total Score: 17 025 11:00 AM EDT documented as of this encounter Care Teams Dock Hand Relationship Specialty Start Date End Date Enedina Mcguire NP [address] [place] [address] PCP - General Internal Medicine 10/05/24 documented as of this encounter
--- OUTSIDE RECORDS SUMMARY | 2024-10-21 07:53 | XMS_ITS | Encounter Summary ---
Author Organization [facility] Address [facility] [place] [address] Care Team Providers Care Petroleum Engineering Professor Name Role Phone Enedina Mcguire NP Primary Care Provider [phone] Source Comments This information has been disclosed [...] release of HIV test results or diagnoses. [id number] Reason for Visit * Reason Comments After Hours Call Encounter Details Date Type Department Care Team ([facility] Contact Info) Description 10/05/2024 Telephone [facility] PATIENT SERVICES [address] [place] [address] Unknown, Attending Provider After Hours [...] Recorded In the past 12 months has [employer], gas, oil, or water [employer] threatened to shut off services in your [...] local ER w/ plans to transfer to [facility] if higher level of care required. [...] Relationship of Caller to Patient and Callback: ABDIAZIZ()-[phone] Patient of: DR. LINARES Nature of Call: STATES PT IS SHOWING SIGNS OF CONFUSION. PLEASE ADVISE. Tractor Trailer Mechanic Provider Contacted: DR. RETANA Time and Method [...] Description 12/05/2024 8:01 AM EDT Hospital Encounter [facility] ENDOSCOPY [address] [place] [address] Chris Orosco MD [address] [place] [phone] 12/05/2024 8:01 AM EDT - 12/05/2024 8:31 AM EDT Surgery [facility] ENDOSCOPY [address] [place] [phone] Chris Orosco MD [address] [place] [phone] EGD Scheduled Procedures Name Priority Associated Diagnoses [...] documented as of this encounter Care Teams Petroleum Engineering Professor Relationship Specialty Start Date End Date Enedina Mcguire NP [address] [place] [address] PCP - General Internal Medicine 10/05/24 documented as of this encounter
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
--- OUTSIDE RECORDS SUMMARY | 2024-10-21 07:53 | XMS_ITS | Encounter Summary ---
Author Organization [facility] Address [address] [place] [address] Care Team Providers Care Lawn Mower Mechanic Name Role Phone Unavailable Primary Care [...] release of HIV test results or diagnoses. [id number] Health Encounter Details Date Type Department Care Team (Late st Contact Info) Description 09/25/2024 Orders Only [facility] Liver Transplant at [address] [phone] Mary Butler, RN Pre-transplant evaluation for chronic [...] Recorded In the past 12 months has [employer], gas, oil, or water [employer] threatened to shut off services in your [...] time in the past [address] [facility], were you homeless or living in a residential (including now)? No 09/05/2024 Yearly Questionnaire Answer [...] AM EDT Hospital Encounter [facility] ENDOSCOPY [address] [place] [address] Chris Orosco MD [address] [place] [phone] 12/05/2024 8:01 AM EDT - 12/05/2024 8:31 AM EDT Surgery [facility] ENDOSCOPY [address] [place] [address] Chris Orosco MD [address] [place] [phone] EGD Scheduled Procedures Name Priority Associated Diagnoses Date/Ti me EGD Cirrhosis of liver with ascites, unspecified hepatic cirrhosis type ([facility]-H[facility]) 12/05/2024 8:01 AM EDT documented as of this encounter Results * Urine Drug Comprehensive Panel, Confirmation (09/25/2024 11:55 AM EDT) BARBITURATES NOT PRESENT 09/29/2024 12:39 PM EDT [facility] BENZODIAZEPINES NOT PRESENT 09/30/19 12:39 PM EDT [facility] CANNABINOIDS NOT PRESENT 09/29/2024 12:39 PM EDT [facility] GENETICIST STIMULANTS NOT PRESENT 12:39 PM EDT [facility] [...] 4.7 - 7.8 09/26/2024 11:30 AM EDT [facility] Specific [place] 1.010 1.003 - 1.035 09/26/2024 11:30 AM EDT [facility] Urine 09/25/2024 11:5 5 AM EDT 09/25/2024 12:19 PM EDT Narrative [facility] - 09/29/2024 12:39 PM EDT This test has been developed and its performance characteristics determined by [facility] which is certified under the [...] ORDERABLES Final Result Performing Organization Address City/State/[facility] Co de Phone Number [facility] [address] * Phosphatidylethanol Confirmation, B (09/25/2024 11:55 AM EDT) PETH 16:0/18.1 (POPETH) <10 Cutoff: 10 ng/mL 09/29/2024 12:[address] [facility] Comment: Phosphatidylethanol (PEth) homologues result interpretation PEth [...] Cutoff: 10 ng/mL 09/29/2024 12:24 PM EDT [facility] Comment: PEth 16:0/18:2 (PLPEth) Reference ranges are not well established PEth Interpretation Negative. 05/19 /2025 12:24 PM EDT [facility] Comment: ADDITIONAL INFORMATION This report is intended for use in clinical monitoring and management of patients. It is not intended for use in employment-related testing. This test was developed and its performance characteristics determined by [facility] in a manner consistent with CLIA requirements. This test has not been cleared or approved by the U.S. Food and Drug Administration. Test Performed by: [facility] [address] [place] [address] Typewriter Ribbon Winder: Kathy Ortiz Ph.D.; CLIA# [id number] Whole Blood 09/25/2024 11:5 5 AM EDT 09/29/2024 12:24 PM EDT Chinedu Sidhu MD LAB BLOOD ORDERABLES Final Re sult [facility] [address] [facility] documented in this encounter Visit Diagnoses [...]
--- OUTSIDE RECORDS SUMMARY | 2024-10-21 07:53 | XMS_ITS | Encounter Summary ---
Author Organization [facility] Address [address] [place] [address] Care Team Providers Care Tree Faller Name Role Phone Unavailable Primary Care Provider [...] release of HIV test results or diagnoses. [id number] Health Encounter Details Date Type Department Care Team (Late st Contact Info) Description 09/26/2024 Abstract [facility] [address] [place] [phone] Gerri Peterson MD [address] [place] [address] Social History Tobacco Use Types Packs/Day Years Used Date Smoking Tobacco: Former Cigarettes Smokeless Tobacco: Current Alcohol Use Standard Drinks/Week Comments Yes 0 (1 standard drink = 0.6 oz pure alcohol) History of alcohol abuse, reports no use in 3 week- typically endorses use as 4 glasses of wine a days Utilities Answer Date Recorded In the past 12 months has [facility] [employer], gas, oil, or water [employer] threatened to shut off services in your [...] any time in the past 12 m [facility], were you homeless or living in [...] 8:01 AM EDT Hospital Encounter [facility] ENDOSCOPY [address] [place] [phone] Chris Orosco MD [address] [place] [phone] 12/05/2024 8:01 AM EDT - 12/05/2024 8:31 AM EDT Surgery [facility] ENDOSCOPY [address] [place] [phone] Chris Orosco MD [address] [place] [phone] EGD Scheduled Procedures Name Priority Associated Diagnoses Date/Ti me EGD Cirrhosis of liver with ascites, unspecified hepatic cirrhosis type ([facility]-HCC) 12/05/2024 8:01 AM EDT documented as of this encounter Visit Diagnoses Not on filedocumented in this encounter Additional Health Concerns Infection Onset Date Last Indicated Resolved Time C. difficile 09/09/2024 09/09/2024 Assessment Noted Time PHQ-9 Depression Total Score: 16 05/16/2 025 11:00 AM EDT documented as of this encounter
--- OUTSIDE RECORDS SUMMARY | 2024-10-21 07:53 | XMS_ITS | Encounter Summary ---
Author Organization [facility] Address [address] [place] [address] Care Team Providers Care Crew Team Member Name Role Phone Unavailable Primary Care Provider [...] release of HIV test results or diagnoses. [id number] Health Encounter Details Date Type Department Care Team (Late st Contact Info) Description 09/24/2024 Orders Only [facility] G[facility]enterology at [facility] [address] [place] [phone] Gerri Peterson MD [address] [place] [address] Cirrhosis of liver with ascites, [...] Recorded In the past 12 months has [employer], gas, oil, or water company threatened [...] any time in the past 12 m [facility], were you homeless or [...] [facility] ENDOSCOPY [address] [place] [address] Chris Orosco MD [address] [place] [phone] 12/05/2024 8:01 AM EDT - 12/05/2024 8:31 AM EDT Surgery [facility] ENDOSCOPY [address] [place] [phone] Chris Orosco MD [address] [place] [phone] EGD Scheduled Procedures Name Priority Associated Diagnoses [...]
--- OUTSIDE RECORDS SUMMARY | 2024-10-21 07:53 | XMS_ITS | Encounter Summary ---
Author Organization [facility] Address [facility] [place] [address] Care Team Providers Care Tray Drier Operator Name Role Phone Unavailable Primary Care [...] release of HIV test results or diagnoses. [id number] Reason for Visit * Reason Comments Appointment Encounter Details Date Type Department Care Team (Late st Contact Info) Description 09/25/2024 Telephone [facility] Interventional Radiology [address] [place] [phone] [place], [place] Appointment Social History [...] Recorded In the past 12 months has [employer], gas, oil, or water [employer] threatened to shut off services in your [...] time in the past 12 m [facility], were you homeless [...] IR Procedure, lvm to return call to [phone] opt 1 to schedule. documented in this encounter Plan of Treatment Upcoming Encounters Date Type Department Care Team (Late st Contact Info) Description 12/05/2024 8:01 AM EDT Hospital Encounter [facility] ENDOSCOPY [address] [place] [address] Chris Orosco MD [address] [place] [phone] 12/05/2024 8:01 AM EDT - 12/05/2024 8:31 AM EDT Surgery [facility] ENDOSCOPY [address] [place] [address] Chris Orosco MD [address] [place] [phone] EGD Scheduled Procedures Name Priority Associated Diagnoses Date/Ti me EGD Cirrhosis of liver with ascites, unspecified hepatic cirrhosis type ([facility]-HCC) 12/05/2024 8:01 AM EDT documented as of this encounter Visit Diagnoses Not on filedocumented in this encounter Additional Health Concerns Infection Onset Date Last Indicated Resolved Time C. difficile 09/09/2024 09/09/2024 documented as of this encounter
--- OUTSIDE RECORDS SUMMARY | 2024-10-21 07:53 | XMS_ITS | Encounter Summary ---
Author Organization [facility] Address [address] [place] [address] Care Team Providers Care System Administration Advisor Name Role Phone Unavailable Primary Care Provider [...] release of HIV test results or diagnoses. [id number] Health Encounter Details Date Type Department Care Team (Late st Contact Info) Description 09/30/2024 Social Work [facility] Liver Transplant at [address] [phone] Kaylin Willard MSW Social History Tobacco Use [...] Recorded In the past 12 months has [employer], gas, oil, or water company threatened to [...] any time in the past 12 m [facility], were you homeless or living [...] Liver Transplant Patient has been referred to [facility] for liver transplant evaluation. Patient was evaluated by transplant social science professor on 09/25/2024 and it was determined that patient will need to complete 12 weeks of CD treatment. Patient is engaged in CD treatment with: [facility] Mary Marie [phone] Patient has been attending an IOP program [...] treatment for him. Thank you NUBIA Barros, DECORATING KILN OPERATOR documented in this encounter Plan of Treatment Upcoming Encounters Date Type Department Care Team (Late st Contact Info) Description 12/05/2024 8:01 AM EDT Hospital Encounter [facility] ENDOSCOPY [address] [place] [address] Chris Orosco MD [address] [place] [phone] 12/05/2024 8:01 AM EDT - 12/05/2024 8:31 AM EDT Surgery [facility] ENDOSCOPY [address] [place] [phone] Chris Orosco MD [address] [place] [phone] EGD Scheduled Procedures Name Priority Associated Diagnoses Date/Ti me EGD Cirrhosis of liver with ascites, unspecified hepatic cirrhosis type ([facility]-HCC) 12/05/2024 8:01 AM EDT documented as of this encounter Visit Diagnoses Not on filedocumented in this encounter Additional Health Concerns Infection Onset Date Last Indicated Resolved Time C. difficile 09/09/2024 09/09/2024 Assessment Noted Time PHQ-9 Depression Total Score: 17 025 11:00 AM EDT documented as of this encounter
--- OUTSIDE RECORDS SUMMARY | 2024-10-21 07:54 | XMS_ITS | Encounter Summary ---
Author Organization [facility] Address [address] [place] [address] Care Team Providers Care Knife Setter Grinder Machine Name Role Phone Enedina Mcguire NP Primary Care Provider [phone] Source Comments This information has been disclosed [...] release of HIV test results or diagnoses. [id number] Health Encounter Details Date Type Department Care Team (Late st Contact Info) Description 10/07/[address] [facility] Kidney Transplant at [address] [address] Anny Cote RN Simultaneous Liver-Kidney Transplant Referral [...] Recorded In the past 12 months has [employer], gas, oil, or water [facility] threatened to shut off services in your [...] [x] Financial Clearance is pending sent to corporate statistical financial analyst [x] HLA testing to be ordered [...] Dialysis Unit: (Not currently on dialysis) Outside basket sorter: Dr. Curran, Yovanny Nicholson MD Routed to kidney referral intake team. documented in this encounter Plan of Treatment Upcoming Encounters Date Type Department Care Team (Late st Contact Info) Description 12/05/2024 8:01 AM EDT Hospital Encounter [facility] ENDOSCOPY [address] [place] [address] Chris Orosco MD [address] [place] [phone] 12/05/2024 8:01 AM EDT - 12/05/2024 8:31 AM EDT Surgery [facility] ENDOSCOPY [address] [place] [address] Chris Orosco MD [address] [place] [phone] EGD Scheduled Procedures Name Priority Associated Diagnoses Date/Ti me EGD Cirrhosis of liver with ascites, unspecified hepatic cirrhosis type ([facility]) 12/05/2024 8:01 AM EDT documented as of this encounter Visit Diagnoses Not on filedocumented in this encounter Additional Health Concerns Infection Onset Date Last Indicated Resolved Time C. difficile 09/09/2024 09/09/2024 Rule Out C. difficile 10/05/2024 10/05/20242024 10:04 AM EDT Assessment Noted Time PHQ-9 Depression Total Score: 17 025 11:00 AM EDT documented as of this encounter Care Teams Knife Setter Grinder Machine Relationship Specialty Start Date End Date Enedina Mcguire NP [address] [place] [address] PCP - General Internal Medicine 10/05/24 documented as of this encounter
--- OUTSIDE RECORDS SUMMARY | 2024-10-21 07:54 | XMS_ITS | Encounter Summary ---
Author Organization [facility] Address [address] [place] [address] Care Team Providers Care Spa Consultant Name Role Phone Unavailable Primary Care Provider [...] release of HIV test results or diagnoses. [id number] Health Encounter Details Date Type Department Care Team (Late st Contact Info) Description 10/01/2024 Telephone [facility] Liver Transplant at [address] [address] Armand Salinas, RN Social History Tobacco Use [...] Recorded In the past 12 months has [email or web address], gas, oil, or water company threatened to [...] Description 12/05/2024 8:01 AM EDT Hospital Encounter [facility] ENDOSCOPY [address] [place] [address] Chris Orosco MD [address] [place] [phone] 12/05/2024 8:01 AM EDT - 12/05/2024 8:31 AM EDT Surgery [facility] ENDOSCOPY [address] [place] [address] Chris Orosco MD [address] [place] [phone] EGD Scheduled Procedures Name Priority Associated Diagnoses Date/Ti me EGD Cirrhosis of liver with ascites, unspecified hepatic cirrhosis type ([facility]) 12/05/2024 8:01 AM EDT documented as of this encounter Visit Diagnoses Not on filedocumented in this encounter Additional Health Concerns Infection Onset Date Last Indicated Resolved Time C. difficile 09/09/2024 09/09/2024 Assessment Noted Time PHQ-9 Depression Total Score: 17 025 11:00 AM EDT documented as of this encounter
--- OUTSIDE RECORDS SUMMARY | 2024-10-21 07:54 | XMS_ITS | Encounter Summary ---
Author Organization [facility] Address [address] [place] [address] Care Team Providers Care Finisher Hand Name Role Phone Enedina Mcguire NP Primary Care Provider [phone] Source Comments This information has been disclosed [...] release of HIV test results or diagnoses. [id number] [facility] Encounter Details Date Type Department Care Team (Late st Contact Info) Description 10/09/2024 Social Work [facility] Liver Transplant at [address] [address] Kaylin Willard MSW Social History Tobacco Use [...] Recorded In the past 12 months has [employer], gas, oil, or water [employer] threatened to shut off services in your [...] Liver Transplant Patient has been referred to [facility] for liver transplant evaluation. Patient was evaluated by transplant social work nurse on 09/25/2024 and it was determined that patient will need to complete 12 weeks of CD treatment. Patient is engaged in CD treatment with: [facility] [phone] SW met with patient and spouse at [...] during hospitalization pending mental status. NUBIA Barros, [facility] documented in this encounter Plan of Treatment Upcoming Encounters Date Type Department Care Team (Late st Contact Info) Description 12/05/2024 8:01 AM EDT Hospital Encounter [facility] ENDOSCOPY [address] [place] [phone] Chris Orosco MD [address] [place] [phone] 12/05/2024 8:01 AM EDT - 12/05/2024 8:31 AM EDT Surgery [facility] ENDOSCOPY [address] [place] [phone] Chris Orosco MD [address] [place] [address] EGD Scheduled Procedures Name Priority Associated Diagnoses Date/Ti il EGD Cirrhosis of liver with ascites, unspecified hepatic cirrhosis type ([facility]) 12/05/2024 8:01 AM EDT documented as of this encounter Visit Diagnoses Not on filedocumented in this encounter Additional Health Concerns Infection Onset Date Last Indicated Resolved Time C. difficile 09/09/2024 09/09/2024 Assessment Noted Time PHQ-9 Depression Total Score: 17 09/29/ 025 11:00 AM EDT documented as of this encounter Care Teams Finisher Hand Relationship Specialty Start Date End Date Enedina Mcguire NP [address] [place] [address] PCP - General Internal Medicine 10/05/24 documented as of this encounter
--- OUTSIDE RECORDS SUMMARY | 2024-10-21 07:54 | XMS_ITS | Encounter Summary ---
Author Organization [facility] Address [address] [place] [address] Care Team Providers Care Labor Standards Director Name Role Phone Enedina Mcguire NP Primary Care Provider [phone] Source Comments This information has been disclosed [...] release of HIV test results or diagnoses. [id number] Encounter Details Date Type Department Care [...] Recorded In the past 12 months has [employer], oil, or water [employer] threatened to shut off services in your [...] Description 12/05/2024 8:01 AM EDT Hospital Encounter [facility] ENDOSCOPY [address] [place] [address] Chris Orosco MD [address] [place] [phone] 12/05/2024 8:01 AM EDT - 12/05/2024 8:31 AM EDT Surgery [facility] ENDOSCOPY [address] [place] [phone] Chris Orosco MD [address] [place] [phone] EGD Scheduled Procedures Name Priority Associated Diagnoses [...] documented as of this encounter Care Teams Labor Standards Director Relationship Specialty Start Date End Date Enedina Mcguire NP [address] [place] [address] PCP - General Internal Medicine 10/05/24 documented as of this encounter
--- OUTSIDE RECORDS SUMMARY | 2024-10-21 07:54 | XMS_ITS | Encounter Summary ---
Author Organization [facility] Address [address] [place] [address] Care Team Providers Care Temporary Receptionist Name Role Phone Enedina Mcguire NP Primary Care Provider [phone] Source Comments This information has been disclosed [...] release of HIV test results or diagnoses. [id number] [facility] Encounter Details Date Type Department Care Team (Late st Contact Info) Description 10/07/2024 Chart Note [facility] Kidney Transplant at [address] [place] [phone] Chey Nicole MA This MA received new [...] In the past 12 months has e [employer], gas, oil, or water [employer] threatened to shut off services in your [...] PT. Will FU once financially cleared. An [employer] fax was sent to [facility] and or referring office to notify of referral acceptance. documented in this encounter Plan of Treatment Upcoming Encounters Date Type Department Care Team (Late st Contact Info) Description 12/05/2024 8:01 AM EDT Hospital Encounter [facility] ENDOSCOPY [address] [place] [address] Chris Orosco MD [address] [place] [address] [phone] 12/05/2024 8:01 AM EDT - 12/05/2024 8:31 AM EDT Surgery [facility] ENDOSCOPY [address] [place] [address] Chris Orosco MD [address] [place] [phone] EGD Scheduled Procedures Name Priority Associated Diagnoses [...] documented as of this encounter Care Teams Temporary Receptionist Relationship Specialty Start Date End Date Enedina Mcguire NP [address] [place] [address] PCP - General Internal Medicine 10/05/24 documented as of this encounter
--- OUTSIDE RECORDS SUMMARY | 2024-10-21 07:54 | XMS_ITS | Encounter Summary ---
Author Organization [facility] Address [address] [place] [address] Care Team Providers Care Insect Control Aide Name Role Phone Enedina Mcguire NP Primary Care Provider [phone] Source Comments This information has been disclosed [...] release of HIV test results or diagnoses. [id number] Health Encounter Details Date Type Department Care Team (Late st Contact Info) Description 10/07/2024 Chart Note [facility] Liver Transplant at [address] [place] [phone] Alexandro Sams, RN Spoke with Julien Anderson [...] Recorded In the past 12 months has [employer], gas, oil, or water [employer] threatened to shut off services in your [...] any time in the past 12 m [facility], were you homeless or living in [...] [facility] ENDOSCOPY [address] [place] [address] Chris Orosco MD [address] [place] [phone] 12/05/2024 8:01 AM EDT - 12/05/2024 8:31 AM EDT Surgery [facility] ENDOSCOPY [address] [place] [address] Chris Orosco MD [address] [place] [phone] EGD Scheduled Procedures Name Priority Associated Diagnoses Date/Ti me EGD Cirrhosis of liver with ascites, unspecified hepatic cirrhosis type ([facility]-HCC) 12/05/2024 8:01 AM EDT documented as of this encounter Visit Diagnoses Not on filedocumented in this encounter Additional Health Concerns Infection Onset Date Last Indicated Resolved Time C. difficile 09/09/2024 09/09/2024 Rule Out C. difficile 10/05/2024 10/05/20242024 10:04 AM EDT Assessment Noted Time PHQ-9 Depression Total Score: 17 025 11:00 AM EDT documented as of this encounter Care Teams Insect Control Aide Relationship Specialty Start Date End Date Enedina Mcguire NP [address] [place] [address] PCP - General Internal Medicine 10/05/24 documented as of this encounter
--- OUTSIDE RECORDS SUMMARY | 2024-10-21 07:54 | XMS_ITS | Encounter Summary ---
Author Organization [facility] Address [address] [place] [address] Care Team Providers Care Csr Retail Name Role Phone Enedina Mcguire NP Primary Care Provider [phone] Source Comments This information has been disclosed [...] release of HIV test results or diagnoses. [id number] Health Encounter Details Date Type Department Care Team (Late st Contact Info) Description 10/09/2024 Chart Note [facility] Kidney Transplant at [address] [place] [phone] Dean Robles pending sale to [facility] [id number] Social History Tobacco Use Types Packs/Day Years Used Date Smoking Tobacco: Former Cigarettes Smokeless Tobacco: Current Alcohol Use Standard Drinks/Week Comments Yes 0 (1 standard drink = 0.6 oz pure alcohol) History of alcohol abuse, reports no use in 3 week- typically endorses use as 4 glasses of wine a days Utilities Answer Date Recorded In the past 12 months has [employer], [employer], oil, or water [employer] threatened to shut off services in your [...] - 10/09/2024 10:37 AM EDT Dean berman pending sale to [facility] [id number] Called Cammie Chaves [phone] Advised of brandon martínez she was aware Assigning a cm to call me Requested all clinical Advised this is now a SLK Pending cm call back documented in this encounter Plan of Treatment Upcoming Encounters Date Type Department Care Team (Late st Contact Info) Description 12/05/2024 8:01 AM EDT Hospital Encounter [facility] ENDOSCOPY [address] [place] [address] Chris Orosco MD [address] [place] [phone] 12/05/2024 8:01 AM EDT - 12/05/2024 8:31 AM EDT Surgery [facility] ENDOSCOPY [address] [place] [address] Chris Orosco MD [address] [place] [phone] EGD Scheduled Procedures Name Priority Associated Diagnoses Date/Ti me EGD Cirrhosis of liver with ascites, unspecified hepatic cirrhosis type ([facility]-H[facility]) 12/05/2024 8:01 AM EDT documented as of this encounter Visit Diagnoses Not on filedocumented in this encounter Additional Health Concerns Infection Onset Date Last Indicated Resolved Time C. difficile 09/09/2024 09/09/2024 Assessment Noted Time PHQ-9 Depression Total Score: 17 025 11:00 AM EDT documented as of this encounter Care Teams Csr Retail Relationship Specialty Start Date End Date Enedina Mcguire NP [address] [place] [address] PCP - General Internal Medicine 10/05/24 documented as of this encounter
--- OUTSIDE RECORDS SUMMARY | 2024-10-21 07:54 | XMS_ITS | Encounter Summary ---
Author Organization [facility] Address [address] [place] [address] Care Team Providers Care Aligning Inspector Name Role Phone Enedina Mcguire NP Primary Care Provider [phone] Source Comments This information has been disclosed [...] release of HIV test results or diagnoses. [id number] Health Encounter Details Date Type Department Care Team (Late st Contact Info) Description 10/09/2024 Chart Note [facility] Kidney Transplant at [address] [place] [phone] Dean Robles [facility] [phone] call from Elle [facility] fx [phone] Social History Tobacco Use Types Packs/Day Years Used Date Smoking Tobacco: Former Cigarettes Smokeless Tobacco: Current Alcohol Use Standard Drinks/Week Comments Yes 0 (1 standard drink = 0.6 oz pure alcohol) History of alcohol abuse, reports no use in 3 week- typically endorses use as 4 glasses of wine a days Utilities Answer Date Recorded In the past 12 months has e [employer], gas, oil, or water company threatened to [...] - 10/09/2024 11:57 AM EDT Dean berman [facility] [phone] call from Elle the R fx [phone] Set her all clinical Rquesting a urgent review for liver txp UMR/optum case opened 10/05/24 Pends response documented in this encounter Plan of Treatment Upcoming Encounters Date Type Department Care Team (Late st Contact Info) Description 12/05/2024 8:01 AM EDT Hospital Encounter [facility] ENDOSCOPY [address] [place] [phone] Chris Orosco MD [address] [place] [phone] 12/05/2024 8:01 AM EDT - 12/05/2024 8:31 AM EDT Surgery [facility] ENDOSCOPY [address] [place] [phone] Chris Orosco MD [address] [place] [phone] EGD Scheduled Procedures Name Priority Associated Diagnoses Date/Ti me EGD Cirrhosis of liver with ascites, unspecified hepatic cirrhosis type ([facility]) 12/05/2024 8:01 AM EDT documented as of this encounter Visit Diagnoses Not on filedocumented in this encounter Additional Health Concerns Infection Onset Date Last Indicated Resolved Time C. difficile 09/09/2024 09/09/2024 Assessment Noted Time PHQ-9 Depression Total Score: 17 025 11:00 AM EDT documented as of this encounter Care Teams Aligning Inspector Relationship Specialty Start Date End Date Enedina Mcguire NP [address] [place] [address] PCP - General Internal Medicine 5/25/25 documented as of this encounter
--- OUTSIDE RECORDS SUMMARY | 2024-10-21 07:55 | XMS_ITS | Encounter Summary ---
Author Organization [facility] Address [address] [place] [address] Care Team Providers Care Water Resource Project Manager Name Role Phone Unavailable Primary Care [...] release of HIV test results or diagnoses. [id number] Health Encounter Details Date Type Department Care Team (Late st Contact Info) Description 09/02/2024 Orders Only [facility] Liver Transplant at [address] [phone] Mary Butler, RN Pre-transplant evaluation for chronic [...] Recorded In the past 12 months has [employer], gas, oil, or water [employer] threatened to shut off services in [...] living in a penitentiary (including now)? No 08/12/2024 Yearly Questionnaire Answer [...] Description 12/05/2024 8:01 AM EDT Hospital Encounter [facility] ENDOSCOPY [address] [place] [address] Chris Orosco MD [address] [place] [phone] 12/05/2024 8:01 AM EDT - 12/05/2024 8:31 AM EDT Surgery [facility] ENDOSCOPY [address] [place] [address] Chris Orosco MD [address] [place] [phone] EGD Scheduled Procedures Name Priority Associated Diagnoses [...]
--- OUTSIDE RECORDS SUMMARY | 2024-10-21 07:55 | XMS_ITS | Encounter Summary ---
Author Organization [facility] Address [facility] [place] [address] Care Team Providers Care Surveying Crew Rodman Name Role Phone Unavailable Primary Care Provider [...] release of HIV test results or diagnoses. [id number] Health Encounter Details Date Type Department Care Team (Late st Contact Info) Description 09/02/2024 Orders Only [facility] [address] [place] [phone] Noé Giordano MD [address] [place], [place] [phone] Hypokalemia (Primary Dx) Social History Tobacco Use [...] Recorded In the past 12 months has [employer], gas, oil, or water [employer] threatened to shut off services in your [...] living in a custodial (including now)? No 08/12/2024 Yearly Questionnaire Answer [...] Description 12/05/2024 8:01 AM EDT Hospital Encounter [facility] ENDOSCOPY [address] [place] [address] Chris Orosco MD [address] [place] [phone] 12/05/2024 8:01 AM EDT - 12/05/2024 8:31 AM EDT Surgery [facility] ENDOSCOPY [address] [place] [address] Chris Orosco MD [address] [place] [phone] EGD Scheduled Procedures Name Priority Associated Diagnoses Date/Ti nd EGD Cirrhosis of liver with ascites, unspecified hepatic cirrhosis type ([facility]-HCC) 12/05/2024 8:01 AM EDT documented as of this encounter Visit Diagnoses Diagnosis Hypokalemia- Primary Hypopotassemia Cirrhosis of liver with ascites, unspecified hepatic cirrhosis type ([facility]-HCC) documented in this encounter
--- OUTSIDE RECORDS SUMMARY | 2024-10-21 07:55 | XMS_ITS | Encounter Summary ---
Author Organization [facility] Address [address] [place] [address] Care Team Providers Care Drilling Superintendent Name Role Phone Unavailable Primary Care Provider [...] release of HIV test results or diagnoses. [id number] Reason for Referral * Surgical (Routine) - New Request Specialty Diagnoses / Procedures Referred By Contac t Referred To Contact Gastroenterology Diagnoses Cirrhosis of liver with ascites, unspecified hepatic cirrhosis type ([facility]-H[facility]) Procedures Case request GI: EGD Chris Orosco MD [address] [place] [address] Phone: tel: fax: Referral ID Status Reason Start Date Expiration Date V isits Requested Visits Authorized [id number] New Request 09/05/2024 03/04/2025 1 1 Encounter Details Date Type Department Care Team (Late st Contact Info) Description 09/05/2024 Orders Only [facility] Gastroenterology at [facility] Office [address] [place] [address] [place] [address] Chris Orosco MD [address] [place] [phone] Cirrhosis of liver with ascites, unspecified hepatic [...] the past 12 months has th e [employer], gas, oil, or water [employer] threatened to shut off services in your [...] Description 12/05/2024 8:01 AM EDT Hospital Encounter [facility] ENDOSCOPY [address] [place] [phone] Chris Orosco MD [address] [place] [phone] 12/05/2024 8:01 AM EDT - 12/05/2024 8:31 AM EDT Surgery [facility] ENDOSCOPY [address] [place] [phone] Chris Orosco MD [address] [place] [phone] EGD Scheduled Procedures Name Priority Associated [...]
--- OUTSIDE RECORDS SUMMARY | 2024-10-21 07:55 | XMS_ITS | Encounter Summary ---
Author Organization [facility] Address [address] [place] [address] Care Team Providers Care Paste Mixing Supervisor Name Role Phone Unavailable Primary Care [...] release of HIV test results or diagnoses. [id number] Health Encounter Details Date Type Department Care Team (Late st Contact Info) Description 09/02/2024 Telephone [facility] Gastroenterology at [facility] [address] [place] [phone] Chris Orosco MD [address] [place] [address] Social History Tobacco Use Types Packs/Day Years Used Date Smoking Tobacco: Former Cigarettes Smokeless Tobacco: Current Alcohol Use Standard Drinks/Week Comments Yes 0 (1 standard drink = 0.6 oz pure alcohol) History of alcohol abuse, reports no use in 3 week- typically endorses use as 4 glasses of wine a days Utilities Answer Date Recorded In the past 12 months has [employer], gas, oil, or water [employer] threatened to shut off services in your [...] any time in the past 12 m [facility], were you homeless or living in a prison (including now)? No 08/12/2024 Yearly Questionnaire Answer [...] blood pressure medication. Instructed to arrive at [facility] at 6:30 AM with escort. Directions given, verbalized understanding. Written instructions and directions provided. documented in this encounter Plan of Treatment Upcoming Encounters Date Type Department Care Team (Late st Contact Info) Description 12/05/2024 8:01 AM EDT Hospital Encounter [facility] ENDOSCOPY [address] [place] [address] Chris Orosco MD [address] [place] [phone] 12/05/2024 8:01 AM EDT - 12/05/2024 8:31 AM EDT Surgery [facility] ENDOSCOPY [address] [place] [address] Chris Orosco MD [address] [place] [phone] EGD Scheduled Procedures Name Priority Associated Diagnoses Date/Ti me EGD Cirrhosis of liver with ascites, unspecified hepatic cirrhosis type ([facility]-HCC) 12/05/2024 8:01 AM EDT documented as of this encounter Visit Diagnoses Not on filedocumented in this encounter
--- OUTSIDE RECORDS SUMMARY | 2024-10-21 07:55 | XMS_ITS | Data Portability ---
Author Organization [facility] ITY AND GYNECOLOGY,, Main Office Address [address] [place] [address] Assessment No assessment recorded. Plan of Treatment [...] Available No t Available BD Regular Bevel [place] 18 gauge x 1 active Not Available [...] Updated DateTime 3 193.04 cm 29.1 kg/m2 774990. 58 g 112 /min 97.7 [degF] 141 mm[Hg] 84 mm[Hg] [facility] FERTILITY AND GYNECOLOGY, 3 13:14:11 Date Recorded Body height Body mass index (BMI) Body weight Heart rate Body temperature Systolic blood pressure Diastolic blood pressure Provider Name and Address Organization Details Last Updated DateTime 4 193.04 cm 30.4 kg/m2 601557. 09 g 92 /min 97.5 [degF] 176 mm[Hg] 104 mm[Hg] [facility] FERTILITY AND GYNECOLOGY, 4 14:06:31 Date Recorded Body temperature Provider Name a nd Address Organization Details Last Updated DateTime 12/27/2020 99.5 [degF] Cuca Strickland [facility] FERTILITY [facility] GYNECOLOGY, 12/27/2020 13:41:33 Date Recorded Body weight Heart rate Body temperature Systolic blood pressure Diastolic blood pressure Provider Name and Address Organization Details Last Updated DateTime 04/03/2022 515006. 95 g 93 /min 97.6 [degF] 114 mm[Hg] 83 mm[Hg] Ashley Wallace [facility] FERTILITY AND GYNECOLOGY, 14:42:57 Social History None recorded. Functional Status None recorded. Mental Status None recorded. Family History Nothing Reported. Medical History No medical history recorded. Past Encounters Encounter ID Performer Location Encounter Start Date Encounter Closed Date Diagnosis/Indication Diagnosis SNOMED-CT Code Diagnosis ICD10 Code Diagnosis Note [id number] Yung Felipe DO Main Office [address] [place] [address] 12/27/2020 13:24:24 12/27/2020 14:00:19 Evaluation of semen fertility 227437764 N46.9 semen analysis [id number] Yung Felipe DO Main Office [address] [place] [address] 07/04/2021 14:47:56 07/04/2021 16:00:05 Evaluation of semen fertility 558824614 N46.9 semen analysis [id number] Yung Felipe DO Main Office [address] [place] [address] 05/31/2022 13:04:00 05/31/2022 13:50:01 Evaluation of semen fertility 654811159 N46.9 semen analysis + viability: analysis by Dr. Ruiz [id number] Yung Felipe DO Main Office [address] [place] [address] 10/22/2023 13:58:48 10/22/2023 14:31:18 Evaluation of semen fertility 719852465 N46.9 semen analysis + viability: analysis by [...] Yung Felipe DO [address], [place], [address], [facility] FERTILITY AND GYNECOLOGY, 08/06/2021 23:24:22 05/31/2022 text/html semen analysis + viability NAA Mc[address], [place], [address], [facility] FERTILITY AND GYNECOLOGY, 05/31/2022 13:57:30 10/22/2023 text/html semen analysis NAA Mcgee [address], [place], [address], [facility] FERTILITY AND GYNECOLOGY, 10/22/2023 16:29:00
--- OUTSIDE RECORDS SUMMARY | 2024-10-21 07:55 | XMS_ITS | Encounter Summary ---
Author Organization [facility] Address [facility] [place] [address] Care Team Providers Care Behavioral Health Care Manager Name Role Phone Unavailable Primary Care [...] release of HIV test results or diagnoses. [id number] Reason for Visit * Reason Comments After Hours Call Encounter Details Date Type Department Care Team (Late st Contact Info) Description 09/02/2024 Telephone [facility] PATIENT SERVICES [address] [place] [address] Unknown, Attending Provider After Hours [...] Recorded In the past 12 months has [employer], gas, oil, or water [employer] threatened to shut off services in your [...] Bella - 09/02/2024 8:50 PM EDT Specialty: [facility] Patient Name: Julien Anderson Patient Date of : 1985 Relationship of Caller to Patient and Callback: ALICIA ([facility]) [phone] Patient of: DR. LINARES Nature of Call: CRITICAL LAB RESULT Gravity Prospector Provider Contacted: DR. VINES Time and Method [...] 12/05/2024 8:01 AM EDT Hospital Encounter [facility] ENDOSCOPY [address] [place] [address] Chris Orosco MD [address] [place] [phone] 12/05/2024 8:01 AM EDT - 12/05/2024 8:31 AM EDT Surgery [facility] ENDOSCOPY [address] [place] [address] Chris Orosco MD [address] [place] [phone] EGD Scheduled Procedures Name Priority Associated Diagnoses Date/Ti me EGD Cirrhosis of liver with ascites, unspecified hepatic cirrhosis type ([facility]) 12/05/2024 8:01 AM EDT documented as of this encounter Visit Diagnoses Not on filedocumented in this encounter Additional Health Concerns Infection Onset Date Last Indicated Resolved Time Rule Out C. difficile 09/08/2024 09/08/20242024 10:56 PM EDT Rule Out C. difficile 09/09/2024 09/09/20242024 1:20 PM EDT C. difficile 09/09/2024 09/09/2024 documented as of this encounter
--- OUTSIDE RECORDS SUMMARY | 2024-10-21 07:55 | XMS_ITS | Encounter Summary ---
Author Organization [facility] Address [facility] [place] [address] Care Team Providers Care Caterpillar Mechanic Name Role Phone Unavailable Primary Care [...] release of HIV test results or diagnoses. [id number] Reason for Visit * Reason Comments Appointment Encounter Details Date Type Department Care Team (Late st Contact Info) Description 09/03/2024 Telephone [facility] Interventional Radiology [address] [place] [phone] De Leon, Shamone Appointment Social History [...] Recorded In the past 12 months has [employer], gas, oil, or water [employer] threatened to shut off services in your [...] living in a usp (including now)? No 08/12/2024 Yearly Questionnaire Answer [...] IR Procedure, lvm to return call to [phone] opt 1 to schedule. documented in this encounter Plan of Treatment Upcoming Encounters Date Type Department Care Team (Late st Contact Info) Description 12/05/2024 8:01 AM EDT Hospital Encounter [facility] ENDOSCOPY [address] [place] [address] Chris Orosco MD [address] [place] [phone] 12/05/2024 8:01 AM EDT - 12/05/2024 8:31 AM EDT Surgery [facility] ENDOSCOPY [address] [place] [address] Chris Orosco MD [address] [place] [phone] EGD Scheduled Procedures Name Priority Associated Diagnoses Date/Ti me EGD Cirrhosis of liver with ascites, unspecified hepatic cirrhosis type (CMS-HCC) 12/05/2024 8:01 AM EDT documented as of this encounter Visit Diagnoses Not on filedocumented in this encounter
--- OUTSIDE RECORDS SUMMARY | 2024-10-21 07:55 | XMS_ITS | Encounter Summary ---
Author Organization [facility] Address [address] [place] [address] Care Team Providers Care Preventive Medicine Specialist Name Role Phone Unavailable Primary Care [...] release of HIV test results or diagnoses. [id number] Reason for Visit * Reason Comments Orders Order Request (New) Encounter Details Date Type Department Care Team (Late st Contact Info) Description 09/02/2024 Telephone [facility] [address] [place] [phone] Gerri Peterson MD [address] [place] [address] Orders (Order Request (New) ) Social [...] Recorded In the past 12 months has [employer], gas, oil, or water company threatened [...] of Order: Abdominal doppler ultra sound Fax#: [phone] [facility] Leander sharon Please return call to confirm completed at [phone]. documented in this encounter Plan of Treatment Upcoming Encounters Date Type Department Care Team (Late st Contact Info) Description 12/05/2024 8:01 AM EDT Hospital Encounter [facility] ENDOSCOPY [address] [place] [address] Chris Orosco MD [address] [place] [phone] 12/05/2024 8:01 AM EDT - 12/05/2024 8:31 AM EDT Surgery [facility] ENDOSCOPY [address] [place] [address] Chris Orosco MD [address] [place] [phone] EGD Scheduled Procedures Name Priority Associated Diagnoses Date/Ti me EGD Cirrhosis of liver with ascites, unspecified hepatic cirrhosis type (CMS-HCC) 12/05/2024 8:01 AM EDT documented as of this encounter Visit Diagnoses Not on filedocumented in this encounter
--- OUTSIDE RECORDS SUMMARY | 2024-10-21 07:55 | XMS_ITS | Encounter Summary ---
Author Organization [facility] Address [address] [place] [address] Care Team Providers Care Wood Room Supervisor Name Role Phone Unavailable Primary Care [...] release of HIV test results or diagnoses. [id number] Health Encounter Details Date Type Department Care [...] Recorded In the past 12 months has [employer], [employer], or water [employer] threatened to shut off services in your [...] time in the past 12 m [facility], were you homeless or living [...] Description 12/05/2024 8:01 AM EDT Hospital Encounter [facility] ENDOSCOPY [address] [place] [address] Chris Orosco MD [address] [place] [phone] 12/05/2024 8:01 AM EDT - 12/05/2024 8:31 AM EDT Surgery [facility] ENDOSCOPY [address] [place] [address] Chris Orosco MD [address] [place] [phone] EGD Scheduled Procedures Name Priority Associated Diagnoses Date/Ti me EGD Cirrhosis of liver with ascites, unspecified hepatic cirrhosis type ([facility]) 12/05/2024 8:01 AM EDT documented as of this encounter Visit Diagnoses Not on filedocumented in this encounter
--- OUTSIDE RECORDS SUMMARY | 2024-10-21 07:56 | XMS_ITS | Encounter Summary ---
Author Organization [facility] Address [address] [place] [address] Care Team Providers Care Offset Proof Press Operator Name Role Phone Unavailable Primary Care Provider Unavailabl e Encounter Details Date Type Department Care Team (Late st Contact Info) Description 06/03/2018 Transcribed Document [facility] [address] [place] [address] ProviderEbenezer MD [address] [place] [address] Social History Tobacco Use Types [...] - Historical ProviderMD - 06/03/2018 3:04 PM GLASS DRILLER [address] [place] [address] PERSON INFORMATION Name JULIEN ZELAYA Age 33 Years 1985 Sex Male Language Portuguese PCP SALLY EVERETT (REF) T Marital Status Single Med Service Emergency Medicine Acct# Arrival 06/03/2018 12:08:00 Visit Reason Finger laceration; CUT FINGERS Acuity 3 - Urgent LOS 000 02:56 Depart Date: 06/03/18 03:04 PM Address: [address] [place] [phone] Comment: PROVIDER INFORMATION Provider Role Assigned Unassigned Lizeth Almeida, FABRICATION AND ASSEMBLY SUPERVISOR Nurse 06/03/2018 12:39:09 DOMINIQUE BREWER PA-C ED [...] [address] [place] [address] [place], [place] [id number] [employer] Within 2 to 3 days Comment: documented in this encounter Plan of Treatment Not on file documented as of this encounter Visit Diagnoses Not on filedocumented in this encounter
--- OUTSIDE RECORDS SUMMARY | 2024-10-21 07:56 | XMS_ITS | Encounter Summary ---
Author Organization [facility] Address [facility] [place] [address] Care Team Providers Care Inventory Checker Name Role Phone Unavailable Primary Care Provider [...] release of HIV test results or diagnoses. [id number] Reason for Visit * Reason Comments Medical Management Plan of Care Inquiry /Question Encounter Details Date Type Department Care Team (Late st Contact Info) Description 09/16/[address] [facility] G[facility]enterology at [facility] [address] [place] [phone] Gerri Peterson MD [address] [place] [address] Medical Management (Plan of Care Inquiry/Question [...] Recorded In the past 12 months has [employer], gas, oil, or water company threatened to [...] Result : Platelets Ordering Physician: Drawn per [facility] Comment: This was drawn @ 10:40 am [...] review a critical lab. Please call - [phone] * Telephone Encounter - Ingrid Galvez RN - 09/16/2024 11:48 AM EDT RN was not able to reach per secure chat, [employer], paging so RN called on cell. RN spoke to Dr Peterson on phone and to give Albumin 25% 8G/L for greater than 5 L removed. Not to remove more than 10 L. (Max 100g Grams albumin in 24 hours). Verbal order given to Yvonen as was approved per Dr Peterson * Telephone Encounter - Tamar Blackwood - 09/16/2024 9:58 AM EDT Yvonne from [facility] asked if advised to do Albumin replacement after paracentesis? Julien in route to appointment Yvonne can be reached at [phone] documented in this encounter Plan of Treatment Upcoming Encounters Date Type Department Care Team (Late st Contact Info) Description 12/05/2024 8:01 AM EDT Hospital Encounter [facility] ENDOSCOPY [address] [place] [phone] Chris Orosco MD [address] [place] [phone] 12/05/2024 8:01 AM EDT - 12/05/2024 8:31 AM EDT Surgery [facility] ENDOSCOPY [address] [place] [phone] Chris Orosoc MD [address] [place] [phone] EGD Scheduled Procedures Name Priority Associated Diagnoses Date/Ti me EGD Cirrhosis of liver with ascites, unspecified hepatic cirrhosis type ([facility]) 12/05/2024 8:01 AM EDT documented as of this encounter Visit Diagnoses Not on filedocumented in this encounter Additional Health Concerns Infection Onset Date Last Indicated Resolved Time C. difficile 09/09/2024 09/09/2024 documented as of this encounter
--- OUTSIDE RECORDS SUMMARY | 2024-10-21 07:56 | XMS_ITS | Encounter Summary ---
Author Organization [facility] [facility] Address [address] [place] [address] Care Team Providers Care Medical Sales Associate Name Role Phone Unavailable Primary Care Provider Unavailabl e Encounter Details Date Type Department Care Team (Late st Contact Info) Description 06/03/2018 Transcribed Document [facility] [address] [place] [address] ProviderEbenezer MD [address] [place], [place] [phone] Social History Tobacco Use Types Packs/Day Years [...] - Historical ProviderMD - 06/03/2018 2:24 PM DIESEL MECHANIC Electronically signed by Gabriela [facility] Conversion Gas Turbine Assembler Cerner at 08/29/2022 6:41 PM CDT documented in this encounter Plan of Treatment Not on file documented as of this encounter Visit Diagnoses Not on filedocumented in this encounter
--- OUTSIDE RECORDS SUMMARY | 2024-10-21 07:56 | XMS_ITS | Encounter Summary ---
Author Organization [employer] Address [address] [place] [address] Care Team Providers Care Head Bellhop Captain Name Role Phone Unavailable Primary Care Provider Unavailabl e Encounter Details Date Type Department Care Team (Late st Contact Info) Description 06/03/2018 Transcribed Document [facility] Family Medicine [facility] [place] [address] ProviderEbenezer MD [address] [place] [address] Social History Tobacco Use Types [...] - Historical ProviderMD - 06/03/2018 12:08 PM PUBLIC RELATIONS INTERN ED Triage Entered On: 06/03/2018 12:17 EST Performed On: 06/03/2018 12:12 EST by KANU VEELZ RN ED Triage Across the Room Triage Date/Time : 06/03/2018 12:12 EST Chief Complaint : lacerations to rt index and left middle finger s/p picking up a glass that shattered motor equipment captain. lacerations noted with bleeding controlled KANU VELEZ RN - 06/03/2018 12:12 EST DCP GENERIC CODE Tracking Acuity : 3 - Urgent Tracking Group : [facility] [place] KANU VELEZ RN - [...] 12:17:41 EST) Problems(Active) HTN (hypertension) (SNOMED CT :[id number] ) Name of Problem: HTN (hypertension) ; Recorder: KANU VELEZ RN; Confirmation: Confirmed ; Classification: Medical ; Code: [id number] ; Contributor System: Birchbox ; Last Updated: 06/03/2018 12:14 EST ; Life Cycle Date: 06/03/2018 ; Life Cycle Status: Active ; Vocabulary: SNOMED CT Diagnoses(Active) Finger laceration Date: 06/03/2018 ; Diagnosis Type: Reason For Visit ; Confirmation: Complaint of ; Clinical Dx: Finger laceration ; Classification: Medical ; Clinical Service: Emergency medicine ; Code: PNED ; Probability: 0 ; Diagnosis Code: [id number] ED Height and Weight Height Source : Stated Height Entry Format : [place] Height, Feet : 6 ft(Converted to: 183 cm, 72 Inch) Height, Inches : 4 Inch(Converted to: 0 ft 4 Inch, 10.16 cm) Clinical Height : 193.04 cm Weight Source, ED : Standing scale Weight Entry Format : [place] Weight, Pounds : 265 lb Clinical Dosing Weight : 120.45 kg Body Surface Area (BSA) : 2.5 m2 Body Mass Index : 32.3 kg/m2 (HI) Hopkins Body Weight (IBW) : 85.74 kg KANU [...]
--- OUTSIDE RECORDS SUMMARY | 2024-10-21 07:56 | XMS_ITS | Encounter Summary ---
Author Organization [facility] Address [facility] [place] [address] Care Team Providers Care Brake Drum Molder Name Role Phone Unavailable Primary Care Provider [...] release of HIV test results or diagnoses. [id number] Reason for Visit * Reason Comments Orders Order Clarification Request Encounter Details Date Type Department Care Team (Late st Contact Info) Description 09/23/2024 Telephone [facility] Gastroenterology at [facility] [address] [place] [phone] Gerri Peterson MD [address] [place] [address] Orders (Order Clarification Request/) Social [...] Recorded In the past 12 months has [employer], gas, oil, or water company threatened to [...] living in a retirement (including now)? No 09/05/2024 Yearly Questionnaire Answer [...] being requested. I was transferred tolab staff integrated campaign manager. No answer. Message left to please indicate the lab orders that they are in need of and we will fax the orders. RN provided direct nurse line as well as main number for call back with this information. * Telephone Encounter - Carina Quezada - 09/24/2024 9:48 AM EDT Madina with [facility] called to follow-up on faxed received. Madina needing clarification on fax cover sheet note she received regarding clarifying lab protocol. Madina requesting osiel back to clarify at [phone] (ask for Madina) * Telephone Encounter - Alondra Reese MA - 09/23/2024 1:36 PM EDT Requesting bloodwork orders be placed and done biweekly. documented in this encounter Plan of Treatment Upcoming Encounters Date Type Department Care Team (Late st Contact Info) Description 12/05/2024 8:01 AM EDT Hospital Encounter [facility] ENDOSCOPY [address] [place] [phone] Chris Orosco MD [address] [place] [phone] 12/05/2024 8:01 AM EDT - 12/05/2024 8:31 AM EDT Surgery [facility] ENDOSCOPY [address] [place] [phone] Chris Orosco MD [address] [place] [phone] EGD Scheduled Procedures Name Priority Associated Diagnoses Date/Ti me EGD Cirrhosis of liver with ascites, unspecified hepatic cirrhosis type ([facility]) 12/05/2024 8:01 AM EDT documented as of this encounter Visit Diagnoses Not on filedocumented in this encounter Additional Health Concerns Infection Onset Date Last Indicated Resolved Time C. difficile 09/09/2024 09/09/2024 documented as of this encounter
--- OUTSIDE RECORDS SUMMARY | 2024-10-21 07:56 | XMS_ITS | Encounter Summary ---
Author Organization [email or web address] Address [address] [place] [address] Care Team Providers Care Hiv Nurse Name Role Phone Unavailable Primary Care Provider Carmen jimenez Encounter Details Date Type Department Care Team (Late st Contact Info) Description 06/03/2018 Transcribed Document [facility] Family Medicine [place] [address] ProviderEbenezer MD [address] [place] [address] Social History Tobacco Use Types [...] - Ebenezer ProviderMD - 06/03/2018 3:04 PM HAND PLATE STACKER [address] [place] [address] Patient Information Name: JULIEN ZELAYA [...] [address] [place] [address] [place] [address] [employer] (1) Within 2 to 3 days Patient [...] off of the skin. General Instructions??? Take padl-tcp-[id number] and prescription medicines only as told by [...] 04/30/2006 Document Revised: 09/29/2016 Document Reviewed: 04/26/2015 [employer] Patient Education ? 2017 [employer] Allergies: No Known Medication Allergies Medication [...] verify that JULIEN ZELAYA was seen at [facility] Emergency Department on ,06/03/2018 15:04:17. This is [...] Assistance with quitting is available by contacting 7-137-VVMP-NOW. This is a free resource providing counseling, [...] Electronic Communications Privacy Act 18 U.S.C. ???Sections 1645-8385,?? and contain information intended for the specified [...] sure to sign up for the My [facility] patient portal, which gives you 04/12 access to your medical information ??? including these discharge instructions ??? using your computer, smartphone, or tablet. Just go to [employer] to get started. Questions? Call . Acknowledgment [...] Electronically signed by Luis Eduardo Ochoa Conversion Design Engineering Intern Cerner at 08/29/2022 6:45 PM CDT documented in this encounter Plan of Treatment Not on file documented as of this encounter Visit Diagnoses Not on filedocumented in this encounter
--- OUTSIDE RECORDS SUMMARY | 2024-10-21 07:56 | XMS_ITS | Referral Summary ---
Author Organization [employer] [facility] [employer] Address [address] [place] [address] Care Team Providers Care Separator Tender Name Role Phone Unavailable Primary Care Provider [...]
--- OUTSIDE RECORDS SUMMARY | 2024-10-21 07:56 | XMS_ITS | Encounter Summary ---
Author Organization [facility] Address [address] [place] [address] Care Team Providers Care Garden Center Manager Name Role Phone Unavailable Primary Care [...] release of HIV test results or diagnoses. [id number] Health Encounter Details Date Type Department Care Team (Late st Contact Info) Description 09/17/2024 Telephone [facility] Liver Transplant at [address] [phone] Kaylin Willard MSW Social History Tobacco Use [...] Recorded In the past 12 months has [employer], gas, oil, or water company threatened to [...] in the past 12 m [facility], were you homeless or living in a [...] 12/05/2024 8:01 AM EDT Hospital Encounter [facility] ENDOSCOPY [address] [place] [address] Chris Orosco MD [address] [place] [phone] 12/05/2024 8:01 AM EDT - 12/05/2024 8:31 AM EDT Surgery [facility] ENDOSCOPY [address] [place] [address] Chris Orosco MD [address] [place] [phone] EGD Scheduled Procedures Name Priority Associated Diagnoses Date/Ti me EGD Cirrhosis of liver with ascites, unspecified hepatic cirrhosis type ([facility]) 12/05/2024 8:01 AM EDT documented as of this encounter Visit Diagnoses Not on filedocumented in this encounter Additional Health Concerns Infection Onset Date Last Indicated Resolved Time C. difficile 09/09/2024 09/09/2024 documented as of this encounter
--- OUTSIDE RECORDS SUMMARY | 2024-10-21 07:56 | XMS_ITS | Encounter Summary ---
Author Organization [facility] Address [address] [place] [address] Care Team Providers Care Analytics Lead Name Role Phone Unavailable Primary Care Provider [...] release of HIV test results or diagnoses. [id number] Health Encounter Details Date Type Department Care Team (Late st Contact Info) Description 09/17/[address] [facility] Liver Transplant at [address] [address] Kaylin Willard MSW Social History Tobacco Use [...] In the past 12 months has [employer], gas, oil, or water company threatened to [...] Description 12/05/2024 8:01 AM EDT Hospital Encounter [facility] ENDOSCOPY [address] [place] [address] Chris Orosco MD [address] [place] [address] 12/05/2024 8:01 AM EDT - 12/05/2024 8:31 AM EDT Surgery [facility] ENDOSCOPY [address] [place] [address] Chris Orosco MD [address] [place] [address] EGD Scheduled Procedures Name Priority Associated Diagnoses Date/Ti me EGD Cirrhosis of liver with ascites, unspecified hepatic cirrhosis type ([facility]) 12/05/2024 8:01 AM EDT documented as of this encounter Visit Diagnoses Not on filedocumented in this encounter Additional Health Concerns Infection Onset Date Last Indicated Resolved Time C. difficile 09/09/2024 09/09/2024 documented as of this encounter
--- OUTSIDE RECORDS SUMMARY | 2024-10-21 07:56 | XMS_ITS | Encounter Summary ---
Author Organization [facility] Address [address] [place] [address] Care Team Providers Care Kiss Machine Operator Name Role Phone Unavailable Primary Care [...] release of HIV test results or diagnoses. [id number] Reason for Referral * (Routine) - New Request Specialty Diagnoses / Procedures Referred By Contac t Referred To Contact Radiology Diagnoses Cirrhosis of liver with ascites, unspecified hepatic cirrhosis type (CMS-HCC) Procedures AMB Referral to Interventional Radiology (BODY IR) Gerri Peterson MD [address] [place] [address] Phone: tel: fax: Referral ID Status Reason Start Date Expiration Date V isits Requested Visits Authorized [id number] New Request 09/23/2024 03/22/2025 10 10 Reason for Visit * Reason Comments Orders Order Clarification Request Encounter Details Date Type Department Care Team (Late st Contact Info) Description 09/22/2024 Telephone [facility] Gastroenterology at [address] [address] Gerri Peterson MD [address] [place] [address] Orders (Order Clarification Request ) Social History [...] the past 12 months has th e [employer], [employer], oil, or water [employer] threatened to shut off services in your [...] 5:26 PM EDT RN faxed order to [phone] * Telephone Encounter - Alondra Reese MA - 09/23/2024 1:35 PM EDT Pt requesting a Standing order for parenthesis to have done 2x a week. * Telephone Encounter - Tamar Blackwood - 09/22/2024 11:22 AM EDT Madina from [facility] asked to clarify paracentesis frequency. Julien had 9 liters removed last week, 7.5 today and asked to get scheduled this Sunday. Madina can be reached at [phone] documented in this encounter Plan of Treatment Upcoming Encounters Date Type Department Care Team (Late st Contact Info) Description 12/05/2024 8:01 AM EDT Hospital Encounter [facility] ENDOSCOPY [address] [place] [address] Chris Orosco MD [address] [place] [address] 12/05/2024 8:01 AM EDT - 12/05/2024 8:31 AM EDT Surgery [facility] ENDOSCOPY [address] [place] [address] Chris Orosco MD [address] [place] [address] EGD Scheduled Orders Name Type Priority Associated [...]
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
--- OUTSIDE RECORDS SUMMARY | 2024-10-21 07:56 | XMS_ITS | Encounter Summary ---
Author Organization [facility] Address [address] [place] [address] Care Team Providers Care Riding Coach Name Role Phone Unavailable Primary Care Provider [...] release of HIV test results or diagnoses. [id number] Health Encounter Details Date Type Department Care Team (Late st Contact Info) Description 09/10/2024 Telephone [facility] Liver Transplant at [address] [address] Kaylin Willard MSW Social History Tobacco Use [...] Recorded In the past 12 months has [employer], gas, oil, or water company threatened to [...] Description 12/05/2024 8:01 AM EDT Hospital Encounter [facility] ENDOSCOPY [address] [place] [address] Chris Orosco MD [address] [place] [address] 12/05/2024 8:01 AM EDT - 12/05/2024 8:31 AM EDT Surgery [facility] ENDOSCOPY [address] [place] [address] Chris Orosco MD [address] [place] [address] EGD Scheduled Procedures Name Priority Associated Diagnoses Date/Ti me EGD Cirrhosis of liver with ascites, unspecified hepatic cirrhosis type ([facility]) 12/05/2024 8:01 AM EDT documented as of this encounter Visit Diagnoses Not on filedocumented in this encounter Additional Health Concerns Infection Onset Date Last Indicated Resolved Time C. difficile 09/09/2024 09/09/2024 documented as of this encounter
--- OUTSIDE RECORDS SUMMARY | 2024-10-21 07:56 | XMS_ITS | Encounter Summary ---
Author Organization [employer] Address [address] [place] [address] Care Team Providers Care Finnish Rubber Name Role Phone Unavailable Primary Care Provider Unavailabl e Encounter Details Date Type Department Care Team (Late st Contact Info) Description 06/03/2018 Transcribed Document [facility] Medicine [address] [place] [address] ProviderEbenezer MD [address] [place] [address] Social History Tobacco Use Types [...] - Ebenezer ProviderMD - 06/03/2018 3:03 PM EMBEDDED LINUX ENGINEER ED Discharge Entered On: 06/03/2018 15:03 EST Performed On: 06/03/2018 15:03 EST by Lizeth Almeida, computer systems support specialist Process Patient Disposition : Discharge Personal Belongings [...] 06/03/2018 15:03 EST Electronically signed by Gabriela [facility] Conversion Superintendent Water And Sewer Systems Cerner at 08/29/2022 6:35 PM CDT documented in this encounter Plan of Treatment Not on file documented as of this encounter Visit Diagnoses Not on filedocumented in this encounter
--- OUTSIDE RECORDS SUMMARY | 2024-10-21 07:56 | XMS_ITS | Encounter Summary ---
Author Organization [employer] Address [address] [place] [address] Care Team Providers Care Ventilating Equipment Installer Name Role Phone Unavailable Primary Care Provider Unavailabl e Encounter Details Date Type Department Care Team (Late st Contact Info) Description 06/03/2018 Transcribed Document [facility] Family Medicine [address] [place] [address] ProviderEbenezer MD [address] [place] [address] Social History Tobacco Use Types [...] - Ebenezer ProviderMD - 06/03/2018 12:08 PM BOTTOM STOP ATTACHER ED Assessment Entered On: 06/03/2018 14:51 EST Performed On: 06/03/2018 13:50 EST by Lizeth Almeida, WASHATERIA ATTENDANT Quick Look Assessment Level of Consciousness : Alert Affect/Behavior : Calm, Cooperative Orientation : Oriented x 4 Skin Color : Other: [place] Skin Temperature : Warm Skin Description : Dry Lizeth Almeida, RN - 06/03/2018 14:50 EST ED General-Functional Assess Communication Barrier : None Primary Language : Telugu Any Spiritual/Cultural Needs or Requests : No [...] 14:50 EST Electronically signed by Gabriela [facility] Conversion Forest Fire Prevention Manager Cerner at 08/29/2022 6:34 PM CDT documented in this encounter Plan of Treatment Not on file documented as of this encounter Visit Diagnoses Not on filedocumented in this encounter
--- OUTSIDE RECORDS SUMMARY | 2024-10-21 07:56 | XMS_ITS ---
Author Organization [facility] Address [facility] [place] [address] Care Team Providers Care Orthopedic Surgeon Name Role Phone Eendina Mcguire NP Primary Care Provider [phone] Transplant Episode Kidney Candidate [facility] ([place], [place]) [facility] Evaluation began on 10/08/2024 Marked as Active on 10/08/2024 Kidney CoordinatorAnny Cote RN Phone: N/A Fax: N/A Email: N/A Scores Score Value Updated Exceptions/Reas ons CPRA Not available EPTS (Calc) 8 10/21/2024 Care Team Name Role Phone Fax Email Anny Cote RN Kidney Coordinator N/A N/A N/A Yovanny Curran MD Referring Physician [phone] N/A Events Pre-Transplant Referred: 10/07/2024 Evaluation began: 10/08/2024 Committee: 10/20/2024
--- OUTSIDE RECORDS SUMMARY | 2024-10-21 07:56 | XMS_ITS | Encounter Summary ---
Author Organization [facility] Address [address] [place] [address] Care Team Providers Care Food Services Director Name Role Phone Unavailable Primary Care [...] release of HIV test results or diagnoses. [id number] Health Encounter Details Date Type Department Care Team (Late st Contact Info) Description 09/24/2024 Orders Only [facility] Gastroenterology at [facility] [address] [place] [address] Gerri Peterson MD [address] [place] [address] Cirrhosis of liver with ascites, [...] Recorded In the past 12 months has [employer], gas, oil, or water company threatened [...] any time in the past 12 m [facility], were you homeless or [...] Description 12/05/2024 8:01 AM EDT Hospital Encounter [facility] ENDOSCOPY [address] [place] [address] Chris Orosco MD [address] [place] [phone] 12/05/2024 8:01 AM EDT - 12/05/2024 8:31 AM EDT Surgery [facility] ENDOSCOPY [address] [place] [address] Chris Orosco MD [address] [place] [address] EGD Scheduled Orders Name Type Priority Associated Diagnoses Orde r Schedule CBC Lab Routine Cirrhosis of liver with ascites, unspecified hepatic cirrhosis type (CMS-HCC) every 2 weeks for 12 Occurrences starting 09/24/2024 until 04/08/2025 Body fluid cell count Lab Routine Cirrhosis [...] PM EDT 10/10/2024 3:56 PM EDT Result [facility] Gerri Peterson MD MICROBIOLOGY - GENERAL ORDERABL ES Final Result Performing Organization Address [facility] Co de Phone Number [facility] [address] [facility] * (ABNORMAL) Body fluid cell count (10/10/2024 [...] PM EDT 10/10/2024 3:56 PM EDT Result [facility] Gerri Peterson MD BODY FLUIDS AND STOOLS ORDERABL ES Final Result Performing Organization Address [facility]/ZIP Co de Phone Number [facility] [address] documented in this encounter Visit Diagnoses Diagnosis Cirrhosis of liver with ascites, unspecified hepatic cirrhosis type (CMS-HCC)- Primary Cirrhosis of liver with ascites, unspecified hepatic cirrhosis type (CMS-HCC) documented in this encounter Additional Health Concerns Infection Onset Date Last Indicated Resolved Time C. difficile 09/09/2024 09/09/2024 documented as of this encounter
--- OUTSIDE RECORDS SUMMARY | 2024-10-21 07:56 | XMS_ITS | Encounter Summary ---
Author Organization [facility] Address [address] [place] [address] Care Team Providers Care Consulting Psychiatrist Name Role Phone Unavailable Primary Care Provider [...] release of HIV test results or diagnoses. [id number] Health Encounter Details Date Type Department Care Team (Late st Contact Info) Description 09/17/2024 Abstract [facility] Gastroenterology at [facility] [facility] [address] [place] [address] Gerri Peterson MD [address] [place] [address] Social History Tobacco Use Types Packs/Day Years Used Date Smoking Tobacco: Former Cigarettes Smokeless Tobacco: Current Alcohol Use Standard Drinks/Week Comments Yes 0 (1 standard drink = 0.6 oz pure alcohol) History of alcohol abuse, reports no use in 3 week- typically endorses use as 4 glasses of wine a days Utilities Answer Date Recorded In the past [address] [facility] [employer], gas, oil, or water [employer] threatened to shut off services in your [...] 12/05/2024 8:01 AM EDT Hospital Encounter [facility] ENDOSCOPY [address] [place] [address] Chris Orosco MD [address] [place] [phone] 12/05/2024 8:01 AM EDT - 12/05/2024 8:31 AM EDT Surgery [facility] ENDOSCOPY [address] [place] [address] Chris Orosco MD [address] [place] [address] EGD Scheduled Procedures Name Priority Associated Diagnoses Date/Ti me EGD Cirrhosis of liver with ascites, unspecified hepatic cirrhosis type ([facility]) 12/05/2024 8:01 AM EDT documented [...] 7.5 - 11.5 fL Whole Blood Result [facility] Gerri Peterson MD LAB BLOOD ORDERABLES Final Resu lt * Glucose, random (09/16/2024 12:20 PM EDT) Glucose 97 60 - 200 mg/dL Plasma Result [facility] Gerri Peterson MD LAB BLOOD ORDERABLES Final Resu lt * (ABNORMAL) Hepatic function panel (09/16/2024 12:20 PM EDT) Alkaline Phosphatase 144 U/L ALT 40 U/L AST 76 U/L Total Bilirubin 19.8(A) 0.1 - 1.4 mg/dL Protein, Total 6.3 Albumin 3.4(A) 3.5 - 5.0 g/dL Blood Result [facility] Gerri Peterson MD LAB BLOOD ORDERABLES Final Resu lt * (ABNORMAL) Renal Function Panel w/o EGFR (09/16/2024 12:20 PM EDT) Creatinine 2.30 BUN 31(A) 4 - 21 mg/dL Potassium 3.3(A) 3.4 - 5.3 mmol/L Sodium 136(A) 137 - 147 mmol/L Chloride 110(A) 99 - 108 mmol/L Calcium 9.3 8.7 - 10.7 mg/dL Blood Result [facility] Gerri Peterson MD LAB BLOOD ORDERABLES Final Resu lt * Comprehensive metabolic panel (09/16/2024 12:20 PM EDT) CO2 15 13 - 22 mmol/L Plasma Result [facility] Gerri Peterson MD LAB BLOOD ORDERABLES Final Resu lt * (ABNORMAL) Protime-INR (09/16/2024 12:20 PM EDT) INR 1.89(A) 0.9 - 1.1 Protime 19.9(A) 10.0 - 13.8 seconds Plasma Result [facility] Gerri Peterson MD LAB BLOOD ORDERABLES Final Resu lt * (ABNORMAL) CBC (09/16/2024 12:20 PM EDT) Red Blood Cells: 2.52 Hemoglobin 9.1(A) 13.5 - 17.5 g/dL Hematocrit 25.8(A) 41 - 53 % MCV 102.4 82.0 - 108.0 fL WBC 9.9 10^3/mL Whole Blood Result [facility] Gerri Peterson MD LAB BLOOD ORDERABLES Final Resu lt * CBC and differential (09/16/2024 12:20 PM EDT) Neutrophils Absolute 8.4 / L Blood Result [facility] Gerri Peterson MD LAB BLOOD [...]
--- OUTSIDE RECORDS SUMMARY | 2024-10-21 07:57 | XMS_ITS ---
Author Organization [facility] Address [facility] [place] [address] Care Team Providers Care Director Of Home Economics Name Role Phone Enedina Mcguire NP Primary Care Provider [phone] Transplant Episode Liver Candidate [facility] ([place], [place]) [facility] Evaluation began on 10/07/2024 Marked as Active on 10/07/2024 Liver CoordinatorMary Butler RN Phone: N/A Fax: N/A Email: N/A Scores Score Value Updated Expires Exceptions/Reba sons CPRA Not available UNOS MELD Not available MELD (Calc) 34 10/17/2024 [facility] [facility] [place] Organ Diagnosis Organ Primary Contributory Liver Alcohol-Associated C irrhosis Without Acute Alcohol-Associated Hepatitis Infection History Noted Survival Infection Treatment Organism Resolved 09/09/2024 C. difficile diarrhea Care Team Name Role Phone Fax Email Mary Butler RN Liver Coordinator N/A N/A N/A Chris Orosco MD Referring Physician [phone] N/A NUBIA Barros Txp Gameplay Engineer N/A N/A N/A Mary Butler RN Txp Pre Coordinator N/A N/A N/A Events Pre-Transplant Referred: 08/13/2024 Evaluation began: 10/07/2024 Committee: 10/14/2024
--- OUTSIDE RECORDS SUMMARY | 2024-10-21 07:57 | XMS_ITS | Clinical Summary ---
Author Organization [employer] Address [address] [place] [address] Care Team Providers Care Kiln Pusher Name Role Phone Unavailable Primary Care Provider [...]
[2024-10-21 08:33] LABS: INR 1.52 (0.9-1.1); Prothrombin Time 16.4 seconds (10.1-12.5)
[2024-10-21 08:43] LABS: Albumin Level 3.1 g/dl (3.5-5.0); Chloride 105 mmol/L (98-107); Potassium 3.8 mmoL/L (3.5-5.1); Sodium 132 mmol/L (136-145)
[2024-10-21 08:46] LABS: Alanine Aminotransferase 32 U/L (12-78); Alkaline Phosphatase 190 U/L (38-126); Anion Gap 14.8 mEq/L (5-15); Aspartate Amino Transferase 57 U/L (17-59); Bilirubin, Conjugated 1.8 mg/dL (0.0-0.3); Bilirubin,Direct 5.4 mg/dl (0.0-0.4); Bilirubin,Indirect 1.9 mg/dL (0.0-0.9); Bilirubin,Total 7.3 mg/dl (0.2-1.3); Bilirubin,Unconjugated 1.9 mg/dL (0.0-1.1); Blood Urea Nitrogen 64 mg/dl (9-20); Calcium 8.9 mg/dl (8.4-10.2); Carbon Dioxide 16 mmol/L (22.0-30.0); Estimated Glomerular Filt Rate 23 ml/min (>60); GFR (African American) 28 ML/MIN (>60); Glucose 116 mg/dl (74-100); Phosphorous 5.3 mg/dl (2.5-4.5); Total Protein,Serum 5.4 g/dl (6.3-8.2)
== END 2024-10-21 23:59 | disposition home or self-care (01) ==
LOC: LAB 07:47
PROVIDERS: Internal Medicine; PCP Nurse Practitioner Family; Visit Provider Student in an Organized Health Care Education/Training Program
DX: K74.60 Unspecified cirrhosis of liver (principal); R18.8 Other ascites
CPT/HCPCS: 36415; 80069; 80076; 85610

== ENCOUNTER 2024-10-22 07:58 | Outpatient (CLI) | payer OTHER, SELFPAY ==
--- OUTSIDE RECORDS SUMMARY | 2024-08-25 14:20 | XMS_ITS | Encounter Summary ---
Author Organization Healthcare Address [address] [place] [address] Care Team Providers Care Corporate Security Manager Name Role Phone Regina, Ljmelanie Nova APRN Unavailable [phone] Enedina Mcguire APRN Primary Care Provider + Reason for Visit * Reason Comments Follow-up Encounter Details Date Type Department Care Team ([facility] Contact Info) Description 08/25/2024 2:20 PM EDT Office Visit Professional [facility] Nephrology, Bone & Mineral Metabolism [address], [address] [place] [address] Yovanny Bob MD [address] [place] [address] NADIYA (acute kidney injury) (CMS/HCC) [...] answer 07/14/2024 How often [facility] you attend [facility] services? Patient unable to answer 07/14/2024 Do you belong to any clubs o r organizations such as voodoo groups, unions, fraternal or athletic groups, or [...] Recorded Patient Health Questionnaire-2 Score 0 12/27/2023 [facility] Occupat ional Health - Occupational Stress [...] place to sleep or slept in a [facility] (including now)? No 11/19/2023 Housing Stability Vital Sign Answer Bob e Recorded In the last 12 months, was t here a time when you were not able to pay the mortgage or rent on time? No 07/14/2024 In the past 12 months, how m any times have you moved where you were living? 1 07/14/2024 At any time in the past 12 m [facility], were you homeless or living in a [facility] (including now)? 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-PANEL WIRER) to steady your nerves or to get [...] NADIYA. Most recently discharged on 08/19 from [facility]. Cr at time of discharge was 2.6. Cr most recently at [facility] was 2.8. Off topiramate due to acidosis. [...] impressions, importance of compliance with treatment, and residential nature of condition. Education provided was verbal [...] Expiration Date: 02/24/2026 Release to patient in [facility]: Immediate [1] [1] Past Medical History: [...] Description 12/01/2024 2:20 PM EDT Office Visit [facility] Nephrology, Bone & Mineral Metabolism [address] , [address] [place] [address] Yovanny Curran MD [address] [place] [address] 01/08/2025 3:20 PM EDT Office Visit [facility] [address] , [address] [place] [address] Vincent Braga MD [address] [facility] [address] [place] [phone] Scheduled Orders Name Type Priority Associated Diagnoses [...] documented as of this encounter Care Teams Corporate Security Manager Relationship Specialty Start Date End Date Enedina Mcguire APRN [address] [place] [address] PCP - General 12/04/22 Lj Tapia APRN [address] [place] [address] Referring Physician Gastroenterology 07/18/22 documented as of this encounter
--- OUTSIDE RECORDS SUMMARY | 2024-09-02 14:40 | XMS_ITS | Encounter Summary ---
Author Organization [facility] Address [facility] [place] [address] Care Team Providers Care Boiler Engineer Name Role Phone Unavailable Primary Care Provider [...] release of HIV test results or diagnoses. [id number] Reason for Referral * (Routine) - New Request Specialty Diagnoses / Procedures Referred By Contac t Referred To Contact Radiology Diagnoses Cirrhosis of liver with ascites, unspecified hepatic cirrhosis type (CMS-HCC) Procedures AMB Referral to Interventional Radiology (BODY IR) Gerri Peterson MD [facility] [place] [address] Phone: tel: fax: Referral ID Status Reason Start Date Expiration Date V isits Requested Visits Authorized [id number] New Request 09/02/2024 03/01/2025 11 11 Reason for Visit * Reason Comments Follow-up Bloating in PT stoma ch * Hospital Discharge Follow-Up (Routine) - New Request Specialty Diagnoses / Procedures Referred By Contac t Referred To Contact Hepatology Feliciano Freeman MD [address] [place] [address] Phone: tel: fax: Referral ID Status Reason Start Date Expiration Date V isits Requested Visits Authorized [id number] New Request 07/29/2024 01/25/2025 1 1 Encounter Details Date Type Department Care Team (Latest Contact Info) Description 09/02/2024 2:40 PM EDT Office Visit [facility] Gastroenterology at [facility] Office [address] [facility] [address] [place] [address] Gerri Peterson MD [address] [place] [address] Cirrhosis of liver with ascites, [...] as 4 glasses of wine a days [employer] Answer Date Recorded In the past 12 months has th [facility], gas, oil, or water [employer] threatened to shut off services in your [...] time in the past 12 m [facility], were you homeless or living in a long term (including now)? No 09/05/2024 Yearly Questionnaire Answer [...] Description 12/05/2024 8:01 AM EDT Hospital Encounter [facility] ENDOSCOPY [address] [place] [phone] Chris Orosco MD [address] [place] [phone] 12/05/2024 8:01 AM EDT - 12/05/2024 8:31 AM EDT Surgery [facility] ENDOSCOPY [address] [place] [phone] Chris Orosco MD [address] [place] [phone] EGD Scheduled Orders Name Type Priority Associated [...] 09/02/2024 until 03/17/2025, 1 completed US Duplex [id number] Comp Imaging STAT Cirrhosis of liver with [...] - 10.8 10E3/uL 09/25/2024 1:43 PM EDT [facility] RBC 2.88(L) 4.20 - 5.80 10E6/uL 09/25/2024 1:43 PM EDT [facility] Hemoglobin 10.8(L) 13.2 - 17.1 g/dL 09/25/2024 1:43 PM EDT [facility] Hematocrit 29.8(L) 38.5 - 50.0 % 09/25/2024 1:43 PM EDT [facility] MCV 103.5(H) 80.0 - 100.0 fL 09/25/2024 1:43 PM EDT [facility] MCH 37.6(H) 27.0 - 33.0 pg 09/25/2024 1:43 PM EDT [facility] MCHC 36.3(H) 32.0 - 36.0 g/dL 09/25/2024 1:43 PM EDT [facility] RDW 20.1(H) 11.0 - 15.0 % 09/25/2024 1:43 PM EDT [facility] Platelets 62(L) 140 - 400 10E3/uL 09/25/2024 1:43 PM EDT [facility] Comment: _Platelets Appear Decreased Slide Reviewed for PLT Clumps. None Seen. Specimen checked for clots. None detected. MPV 8.3 7.5 - 11.5 fL 09/25/2024 1:43 PM EDT [facility] Whole Blood 09/25/2024 11:5 5 AM EDT 09/25/2024 12:20 PM EDT us Gerri Peterson MD LAB BLOOD ORDERABLES Final Resu lt [facility] [address] [place] [address], [facility] * (ABNORMAL) Comprehensive metabolic panel (09/25/2024 11:55 AM EDT) Sodium 133 133 - 146 mmol/L 09/25/2024 12:50 PM EDT [facility] Potassium 4.1 3.5 - 5.3 mmol/L 09/25/2024 12:50 PM EDT [facility] Chloride 103 98 - 110 mmol/L 09/25/2024 12:50 PM EDT [facility] CO2 18(L) 21 - 33 mmol/L 09/25/2024 12:50 PM EDT [facility] Anion Gap 12 3 - 16 mmol/L 09/25/2024 12:50 PM EDT [facility] BUN 42(H) 7 - 25 mg/dL 09/25/2024 12:50 PM EDT [facility] Creatinine 3.13(H) 0.60 - 1.30 mg/dL 09/25/2024 12:50 PM EDT [facility] Glucose 106(H) 70 - 100 mg/dL 09/25/2024 12:50 PM EDT [facility] Calcium 9.3 8.6 - 10.3 mg/dL 09/25/2024 12:50 PM EDT [facility] Total Bilirubin 20.2(H) 0.0 - 1.5 mg/dL 09/25/2024 1:02 PM EDT [facility] AST 57(H) 13 - 39 U/L 09/25/2024 1:02 PM EDT [facility] ALT 29 7 - 52 U/L 09/25/2024 1:02 PM EDT [facility] Alkaline Phosphatase 171(H) 36 - 125 U/L 09/25/2024 1:02 PM EDT [facility] Total Protein 5.6(L) 6.4 - 8.9 g/dL 09/25/2024 1:02 PM EDT [facility] Albumin 3.5 3.5 - 5.7 g/dL 09/25/2024 1:02 PM EDT [facility] Osmolality, Calculated 287 278 - 305 mOsm/kg 09/25/2024 12:50 PM EDT [facility] EGFR 25 09/25/2024 12:50 PM EDT [facility] Comment:As of 2021, the estimated [...] MD LAB BLOOD ORDERABLES Final Resu lt [facility] [address] [place] [address], [facility] * (ABNORMAL) Comprehensive metabolic panel (09/02/2024 5:00 PM EDT) Sodium 136 133 - 146 mmol/L 09/02/2024 8:57 PM EDT [facility] Potassium 2.7(LL) 3.5 - 5.3 mmol/L 09/02/2024 8:57 PM EDT [facility] Chloride 101 98 - 110 mmol/L 09/02/2024 8:57 PM EDT [facility] CO2 21 21 - 33 mmol/L 09/02/2024 8:57 PM EDT [facility] Anion Gap 14 3 - 16 mmol/L 09/02/2024 8:57 PM EDT [facility] BUN 39(H) 7 - 25 mg/dL 09/02/2024 8:57 PM EDT [facility] Creatinine 2.93(H) 0.60 - 1.30 mg/dL 09/02/2024 8:57 PM EDT [facility] Glucose 137(H) 70 - 100 mg/dL 09/02/2024 8:57 PM EDT [facility] Calcium 8.5(L) 8.6 - 10.3 mg/dL 09/02/2024 8:57 PM EDT [facility] Total Bilirubin 35.4(H) 0.0 - 1.5 mg/dL 09/02/2024 8:57 PM EDT [facility] AST 68(H) 13 - 39 U/L 09/02/2024 8:57 PM EDT [facility] ALT 43 7 - 52 U/L 09/02/2024 8:57 PM EDT [facility] Alkaline Phosphatase 140(H) 36 - 125 U/L 09/02/2024 8:57 PM EDT [facility] Total Protein 5.3(L) 6.4 - 8.9 g/dL 09/02/2024 8:57 PM EDT [facility] Albumin 3.3(L) 3.5 - 5.7 g/dL 09/02/2024 8:57 PM EDT [facility] Osmolality, Calculated 294 278 - 305 mOsm/kg 09/02/2024 8:57 PM EDT [facility] EGFR 27 09/02/2024 8:57 PM EDT [facility] Comment:As of 2021, the estimated [...] MD LAB BLOOD ORDERABLES Final Resu lt [facility] [address] [place] [address], [facility] * (ABNORMAL) CBC (09/02/2024 5:00 PM EDT) WBC 10.4 3.8 - 10.8 10E3/uL 09/02/2024 7:42 PM EDT [facility] RBC 3.13(L) 4.20 - 5.80 10E6/uL 09/02/2024 7:42 PM EDT [facility] Hemoglobin 11.1(L) 13.2 - 17.1 g/dL 09/02/2024 7:42 PM EDT [facility] Hematocrit 30.7(L) 38.5 - 50.0 % 09/02/2024 7:42 PM EDT [facility] MCV 97.9 80.0 - 100.0 fL 09/02/2024 7:42 PM EDT [facility] MCH 35.3(H) 27.0 - 33.0 pg 09/02/2024 7:42 PM EDT [facility] MCHC 36.1(H) 32.0 - 36.0 g/dL 09/02/2024 7:42 PM EDT [facility] RDW 22.7(H) 11.0 - 15.0 % 09/02/2024 7:42 PM EDT [facility] Platelets 73(L) 140 - 400 10E3/uL 09/02/2024 7:42 PM EDT [facility] MPV 9.4 7.5 - 11.5 fL 09/02/2024 7:42 PM EDT [facility] Whole Blood 09/02/2024 5:00 PM EDT 09/02/2024 7:34 PM EDT us Gerri Peterson MD LAB BLOOD ORDERABLES Final Resu lt [facility] [address] [place] [address], [facility] documented in this encounter Visit Diagnoses Diagnosis Cirrhosis of liver with ascites, unspecified hepatic cirrhosis type (CMS-HCC)- Primary Alcoholic cirrhosis of liver without ascites (CMS-HCC) Cirrhosis of liver with ascites, unspecified hepatic cirrhosis type (CMS-HCC) documented in this encounter
--- OUTSIDE RECORDS SUMMARY | 2024-09-02 16:00 | XMS_ITS | Encounter Summary ---
Author Organization [facility] Address [address] [place] [address] Care Team Providers Care Foundation Coordinator Name Role Phone Unavailable Primary Care Provider [...] release of HIV test results or diagnoses. [id number] Reason for Visit * Reason Comments Labs Only * Auth/Cert (Routine) Specialty Diagnoses / Procedures Referred By Shane hernadez Referred To Contact Emergency Medicine [facility] Emergency Department [address] [place] [phone] Phone: tel: fax: Referral ID Status Reason Start Date Expiration Date Visits Re quested Visits Authorized [id number] 1 1 Encounter Details Date Type Department Care Team (Late st Contact Info) Description 09/02/2024 4:00 PM EDT Specimen [facility] Outreach Lab 222 [facility] [address] [place] [address] Doron Botello MD [address] [place] [address] Alcoholic cirrhosis of liver without [...] the past 12 months has th e [employer], gas, oil, or water company threatened to [...] any time in the past 12 m [facility], were you homeless or living in a nursing home (including now)? No 08/12/2024 Yearly Questionnaire Answer [...] Description 12/05/2024 8:01 AM EDT Hospital Encounter [facility] ENDOSCOPY [address] [place] [phone] Chris Orosco MD [address] [place] [phone] 12/05/2024 8:01 AM EDT - 12/05/2024 8:31 AM EDT Surgery [facility] ENDOSCOPY [address] [place] [phone] Chris Orosco MD [address] [place] [phone] EGD Scheduled Procedures Name Priority Associated Diagnoses [...] - 146 mmol/L 09/02/2024 8:57 PM EDT [facility] Potassium 2.7(LL) 3.5 - 5.3 mmol/L 09/02/2024 8:57 PM EDT [facility] Chloride 101 98 - 110 mmol/L 09/02/2024 8:57 PM EDT [facility] CO2 21 21 - 33 mmol/L 09/02/2024 8:57 PM EDT [facility] Anion Gap 14 3 - 16 mmol/L 09/02/2024 8:57 PM EDT [facility] BUN 39(H) 7 - 25 mg/dL 09/02/2024 8:57 PM EDT [facility] Creatinine 2.93(H) 0.60 - 1.30 mg/dL 09/02/2024 8:57 PM EDT [facility] Glucose 137(H) 70 - 100 mg/dL 09/02/2024 8:57 PM EDT [facility] Calcium 8.5(L) 8.6 - 10.3 mg/dL 09/02/2024 8:57 PM EDT [facility] Total Bilirubin 35.4(H) 0.0 - 1.5 mg/dL 09/02/2024 8:57 PM EDT [facility] AST 68(H) 13 - 39 U/L 09/02/2024 8:57 PM EDT [facility] ALT 43 7 - 52 U/L 09/02/2024 8:57 PM EDT [facility] Alkaline Phosphatase 140(H) 36 - 125 U/L 09/02/2024 8:57 PM EDT [facility] Total Protein 5.3(L) 6.4 - 8.9 g/dL 09/02/2024 8:57 PM EDT [facility] Albumin 3.3(L) 3.5 - 5.7 g/dL 09/02/2024 8:57 PM EDT [facility] Osmolality, Calculated 294 278 - 305 mOsm/kg 09/02/2024 8:57 PM EDT [facility] EGFR 27 09/02/2024 8:57 PM EDT [facility] Comment:As of 2021, the [...] M, Olivia DC, Emerita ND, Madelyn CA, Felciia LA, et al. A Unifying Approach for GFR Estimation: Recommendations of the NKF-ASN Task Force on Reassessing the inclusion of Race in Diagnosing Kidney Disease. Am J Kidney Dis. 2020. Plasma 09/02/2024 5:00 PM EDT 09/02/2024 7:34 PM EDT us Gerri Peterson MD LAB BLOOD ORDERABLES Final Resu lt [facility] [address] * (ABNORMAL) CBC (09/02/2024 5:00 PM EDT) WBC 10.4 3.8 - 10.8 10E3/uL 09/02/2024 7:42 PM EDT [facility] RBC 3.13(L) 4.20 - 5.80 10E6/uL 09/02/2024 7:42 PM EDT [facility] Hemoglobin 11.1(L) 13.2 - 17.1 g/dL 09/02/2024 7:42 PM EDT [facility] Hematocrit 30.7(L) 38.5 - 50.0 % 09/02/2024 7:42 PM EDT [facility] MCV 97.9 80.0 - 100.0 fL 09/02/2024 7:42 PM EDT [facility] MCH 35.3(H) 27.0 - 33.0 pg 09/02/2024 7:42 PM EDT [facility] MCHC 36.1(H) 32.0 - 36.0 g/dL 09/02/2024 7:42 PM EDT [facility] RDW 22.7(H) 11.0 - 15.0 % 09/02/2024 7:42 PM EDT [facility] Platelets 73(L) 140 - 400 10E3/uL 09/02/2024 7:42 PM EDT [facility] MPV 9.4 7.5 - 11.5 fL 09/02/2024 7:42 PM EDT [facility] Whole Blood 09/02/2024 5:00 PM EDT 09/02/2024 7:34 PM EDT us Gerri Peterson MD LAB BLOOD ORDERABLES Final Resu lt [facility] [address] * Phosphatidylethanol Confirmation, B (09/02/2024 5:00 PM EDT) PETH 16:0/18.1 (POPETH) <10 Cutoff: 10 ng/mL 09/05/2024 3:18 AM EDT [facility] Comment: Phosphatidylethanol (PEth) homologues [...] its performance characteristics determined by [facility] in a manner consistent with CLIA requirements. This test has not been cleared or approved by the U.S. Food and Drug Administration. Test Performed by: [facility] [place] [address] Analytical Data Scientist: Kathy Ortiz Ph.D.; CLIA# [id number] Whole Blood 09/02/2024 5:00 PM EDT 09/05/2024 3:18 AM EDT Doron Botello MD LAB BLOOD ORDERABLES Final Result [facility] [address] * (ABNORMAL) Protime-INR (09/02/2024 5:00 PM EDT) Protime 22.2(H) 12.1 - 15.1 seconds 09/02/2024 7:54 PM EDT [facility] INR 1.9(H) 0.9 - 1.1 09/02/2024 7:54 PM EDT [facility] Comment: RECOMMENDED THERAPEUTIC RANGES USING INR : Stable oral anticoagulant therapy: 2.0 - 3.0 Mechanical prosthetic heart valve: 2.5 - 3.5 Recurrent acute myocardial infarction: 2.5 - 3.5 Plasma 09/02/2024 5:00 PM EDT 09/02/2024 6:59 PM EDT Doron Botello MD LAB BLOOD ORDERABLES Final Result [facility] [address] * (ABNORMAL) Hepatic Function Panel (09/02/2024 5:00 PM EDT) Total Bilirubin 35.4(H) 0.0 - 1.5 mg/dL 09/02/2024 8:57 PM EDT [facility] Bilirubin, Direct 20.97(H) 0.00 - 0.40 mg/dL 09/02/2024 8:57 PM EDT [facility] AST 68(H) 13 - 39 U/L 09/02/2024 8:57 PM EDT [facility] ALT 43 7 - 52 U/L 09/02/2024 8:57 PM EDT [facility] Alkaline Phosphatase 140(H) 36 - 125 U/L 09/02/2024 8:57 PM EDT [facility] Total Protein 5.3(L) 6.4 - 8.9 g/dL 09/02/2024 8:57 PM EDT [facility] Albumin 3.3(L) 3.5 - 5.7 g/dL 09/02/2024 8:57 PM EDT [facility] Bilirubin, Indirect 14.43(H) 0.00 - 1.10 mg/dL 09/02/2024 8:57 PM EDT [facility] Plasma 09/02/2024 5:00 PM EDT 09/02/2024 7:34 PM EDT Doron Botello MD LAB BLOOD ORDERABLES Final Result [facility] [address] documented in this encounter Visit Diagnoses Diagnosis Alcoholic cirrhosis of liver without ascites (CMS-HCC) Cirrhosis of liver with ascites, unspecified hepatic cirrhosis type (CMS-HCC) Cirrhosis of liver with ascites, unspecified hepatic cirrhosis type (CMS-HCC) documented in this encounter
--- OUTSIDE RECORDS SUMMARY | 2024-09-03 04:56 | XMS_ITS | Encounter Summary ---
Author Organization [facility] Address [facility] [place] [address] Care Team Providers Care Pv Design Engineer Name Role Phone Unavailable Primary Care [...] release of HIV test results or diagnoses. [id number] Reason for Visit * Reason Comments Abdominal Pain * Auth/Cert (Routine) Specialty Diagnoses / Procedures Referred By Shane hernadez Referred To Contact Emergency Medicine [facility] Emergency Department [address] [place] [phone] Phone: tel: fax: Referral ID Status Reason Start Date Expiration Date Visits Re quested Visits Authorized [id number] 1 1 Encounter Details Date Type Department Care Team (Latest Contact Info) Description 09/03/2024 4:56 AM EDT - 09/09/2024 6:25 PM EDT Hospital Encounter [facility] [address] [place] [address] Ana Maria Ramey MD [address] [place] [phone] Jarrod Alas MD [address] [place] [place] [address] Kiet Ramirez MD [address] [place] [address] Kathie Sanchez MD [address] [place] [address] Flaquita Mendez MD [address] [place] [address] Alcoholic cirrhosis of liver with ascites (CMS-HCC) (Primary Dx); Abdominal pain, unspecified abdominal location; NADIYA (acute kidney injury) ([facility]) [N17.9] Discharge Disposition: Home or Self [...] Recorded In the past 12 months has [employer], gas, oil, or water [place] threatened to shut off services in your [...] any time in the past 12 m [facility], were you homeless or living in a longterm (including now)? No 09/05/2024 Yearly Questionnaire Answer [...] containing alcohol? Never 09/05/2024 12:47 AM EDT Mnih Torres R N Q2: How many drinks [...] Mendez MD - 09/09/2024 2:27 PM EDT [facility] Department of Internal Medicine Inpatient Discharge Summary Patient: Julien Anderson CSN: [id number] Date of Admission: 09/03/2024 Date of Discharge: 09/09/2024 Attending Physician: Flaquita Mendez* Past Medical History Past Medical History: Diagnosis Date Alcoholic cirrhosis of liver ([facility]) Alcoholic hepatitis Esophageal varices ([facility]) Hepatorenal syndrome ([facility]) Hypertension Other hyperlipidemia 07/26/2024 Renal cell carcinoma ([facility]) Thrombocytopenia ([facility]) Thyroid disease Discharge Diagnoses Active Hospital Problems Diagnosis Date Noted Alcoholic cirrhosis of liver without ascites ([facility]) [K70.30] 07/25/2024 C. difficile diarrhea [A04.72] 09/09/2024 C Diff Diarrhea [R19.7] 09/08/2024 BRBPR (bright red blood per rectum) [K62.5] 09/07/2024 Anemia [D64.9] 09/05/2024 Abdominal pain [R10.9] 09/03/2024 Hypokalemia [E87.6] 09/03/2024 CKD (chronic kidney disease) stage 4, GFR 15-29 ml/min ([facility]) [N18.4] 09/03/2024 Metabolic acidosis with normal anion gap and bicarbonate losses [E87.20] 09/03/2024 GERD (gastroesophageal reflux disease) [K21.9] 09/03/2024 Hypothyroidism [E03.9] 09/03/2024 Itching [L29.9] 09/03/2024 Renal mass, left [N28.89] 08/18/2024 Alcohol use disorder [F10.90] 07/26/2024 Other hyperlipidemia [E78.49] 07/26/2024 Hypertension [I10] Thrombocytopenia ([facility]) [D69.6] Resolved Hospital Problems Diagnosis Date Noted Date Resolved SBP (spontaneous bacterial peritonitis) ([facility]) [K65.2] 09/08/2024 09/08/2024 Metabolic encephalopathy [G93.41] 07/26/2024 09/08/2024 NADIYA (acute kidney injury) ([facility]) [N17.9] 07/25/2024 09/08/2024 Operations/Procedures Performed (include dates) Surgeries: None Lines/Drains/Airways: Patient Lines/Drains/Airways Status Active Line / PIV Line None Notable Imaging Studies: X-ray Portable Chest Final Result IMPRESSION: No significant interval change. Report Verified by: Essence Lopez MD at 09/03/2024 2:13 PM EDT US Duplex Ysm-Htg-Lvtettt Comp Final Result IMPRESSION: ABDOMEN Cirrhosis and [...] Your Medications These medications were sent to [facility] [address] [place] [id number] Hours: Sunday - Sunday: 8:00AM - 6:00PM [...] Imaging 12/02/2024 2:00 PM GI/LIVER FELLOW 4 [facility] MARIANGEL MAB MAB 12/05/2024 8:00 AM Chrsi Orosco MD [facility] >30 minutes spent on discharge Signed: Flaquita [...] MAB 12/05/2024 8:00 AM Chris Orosco MD [facility] Recent Lab Values for you and your [...] total) by mouth daily. 30 tablet 09/09/2024 zinc sulfate (ZINCATE) 50 mg zinc [...] hours as needed for Pain (Pain). 5 ursodioL (ACTIGALL) 300 mg capsule Take 1 capsule (300 mg total) by mouth 2 times a day. 60 capsule 09/09/2024 3:56 PM EDT 09/09/2024 5 documented as of this encounter Progress [...] this time. Thank you, Chelsy Piper PharmD, [facility] [employer] Forms - Internal Medicine Preferred Contact: [employer] Secured Chat 09/09/2024 3:37 PM * Azalea Hughes DO - 09/09/2024 8:26 AM EDT [facility] Internal Medicine - Progress Note Chief [...] with SBP, s/p CTX x5d; will cont shelter ppx with Cipro 500mg daily - HE: [...] kidney disease) stage 4, GFR 15-29 ml/min ([facility]) As above for NADIYA Alcohol use [...] Sanchez MD - 09/08/2024 9:31 AM EDT [facility] Internal Medicine - Progress Note Chief [...] kidney disease) stage 4, GFR 15-29 ml/min ([facility]) As above for NADIYA Alcohol use [...] Cont home cholestyramine - Cont ursodiol Thrombocytopenia ([facility]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 Hypertension No meds. [...] No pain reported SBP (spontaneous bacterial peritonitis) ([facility]) (Resolved: 09/08/2024) Para with fluid studies [...] another specialty or practice, other licensed professional (PT/OT/RESIDENTIAL GLAZIER/RT), or a non-medical community professional: Hepatology Labs [...] ineligible d/t alcohol use. Then re-admitted to [facility] 07/25-07/29 after worsening outpatient labs (NADIYA). also noted ongoing/worsening jaundice. Repeat US without ascites. His last drink was prior to admission at . During prior admission, renal function improved with volume expansion, held octreotide and midodrine. [facility] Admission -08/19/24 with generalized weakness, worsening labs in outpatient setting, NADIYA on CKD, Tbili>60, hepatic encephalopathy. Required admission to MICU for pressor support. Renal function improved with albumin and pressors. This morning, he reports that his malaise has improved since admission. Diarrhea improving over theweekend, Bms now semi-formed. Did have small amounts [...] assessment and plan. 39 y.o. male with shelter history of alcoholic liver disease, jaundice, ascites, [...] Ceftriaxone for 5 days. Will switch to rn long term care prophylaxis with Cipro 500 mg daily. Supportive [...] Saxena MD - 09/07/2024 6:17 PM EDT [facility] Medicine Cross Cover Note Follow up task / Call regarding: Julien Anderson Issue: Bmp follow up potassium 3.4. bicarb improving. Action: reordered potassium RICCI SAXENA MD Division of Hospital Medicine Department of Internal Medicine 6:16 PM, 09/07/2024 * Azalea jesDO - 09/07/2024 6:45 AM EDT [facility] Medicine Progress Note [facility] Chief Concern / Reason for Follow-Up [...] appropriate affect, pleasant, cooperative Laboratory Data Lab 09/07/2434109/06/24163609/06/240 09/05/24 0724 WBC 4.0 5.1 4.3 4.6 HEMOGLOBIN 7.4* 8.3* 8.4* 7.6* HEMATOCRIT 20.7* 23.3* 22.8* 21.1* MEAN CORPUSCULAR VOLUME 100.2* 100.4* 99.9 99.7 PLATELETS 40* 45* 41* 37* Lab 09/07/2434109/06/24163609/06/2442909/05/24 0724 SODIUM 137 137 137 134 POTASSIUM [...] kidney disease) stage 4, GFR 15-29 ml/min ([facility]) As above for NADIYA Metabolic encephalopathy [...] Cont home cholestyramine - Cont ursodiol Thrombocytopenia ([facility]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 Hypertension No meds. [...] another specialty or practice, other licensed professional (PT/OT/RESIDENTIAL GLAZIER/RT), or a non-medical community professional: hepatology Labs reviewed (1 pt each): BMP x2, LFT, CBC, INR Review of notes from a different specialty or different practice: hepatology Kathie Sanchez MD [facility] Medicine 09/07/2024 10:22 AM * Jean Maher [...] acute / urgent / emergent indication for WOOD ROUTER HAND at this time. Nephrology signing off. Please [...] 0659 09/07/24 0700 - 09/08/24 0659 Shift 5156-8688 6007-8331 0870-9378 24 Hour Total 8109-8145 0366-1314 5099-0563 24 Hour Total INTAKE P.O. 240 340 [...] 09/05/24 0724 09/05/24 0724 09/06/24 0430 09/06/24 16309/07/24341 NA 134 -- 137 137 137 K [...] in this interval not displayed. Recent Labs 09/06/2442909/06/24163609/07/24341 CALCIUM 8.6 8.7 8.3* PHOS 2.0* 2.2 1.9* No results found for: IRON , TIBC , FERRITIN No results found for: [id number] , FOLATE Lab Results Component Value Date [...] CRUR No results found for: MICROALBUR , [id number] In addition to the above an extensive [...] goals of ~70-75. - no indication for WOOD ROUTER HAND at this time - still have 8 [...] 7:36 AM EDT Hospital Medicine Progress Note [facility] Chief Concern / Reason for Follow-Up [...] Recheck pm RFP NADIYA (acute kidney injury) ([facility]) Admit Cr 3.01 (from 2.91 on 09/02, recent BL 2.7-3.0), peak Cr 3.52, now improving. UA appears concentrated, no c/f obstruction on CT A/P. Treated as HRS initially given severity of CKD and cirrhosis,de-escalating tx as above. Renal consulted. - Cont home sodium bicarb 1300mg TID - Albumin challenge and octreotide/midodrine as above CKD (chronic kidney disease) stage 4, GFR 15-29 ml/min ([facility]) As above for NADIYA Metabolic encephalopathy Likely [...] Cont home cholestyramine - Cont ursodiol Thrombocytopenia ([facility]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 Hypertension No meds. Other [...] another specialty or practice, other licensed professional (PT/OT/RESIDENTIAL GLAZIER/RT), or a non-medical community professional: hepatology Labs reviewed (1 pt each): BMP, LFT, CBC, INR Review of notes from a different specialty or different practice: renal Kathie Sanchez MD Hospital Medicine 09/06/2024 1:06 PM [...] lb 11.2 oz (110.1 kg) Date 09/05/24 0700 - 09/06/24 0659 09/06/24 0700 - 09/07/24 0659 Shift 1282-3503 2369-0221 9135-0455 24 Hour Total 9494-9224 6234-4762 6277-1393 24 Hour Total INTAKE P.O. 600 250 [...] TIBC , FERRITIN No results found for: [id number] , FOLATE Lab Results Component Value Date [...] <15 No results found for: MICROALBUR , [id number] In addition to the above an extensive [...] goals of ~70-75. - no indication for WOOD ROUTER HAND at this time ANEUDY SIMONS 09/06/2024 This [...] comprehensive medication evaluation was conducted through the [facility] electronic medical record review on interprofessional rounds [...] of the Medicine Team. Chelsy Piper PharmD, [facility] [employer] Forms - Internal Medicine Preferred Contact: [facility] Secured Chat 09/05/2024 2:17 PM * Gee [...] Consult Staff. Gee May Nephrology fellow Pager [phone] Chief Complaint Chief Complaint Patient presents with [...] TIBC , FERRITIN No results found for: [id number] , FOLATE Lab Results Component Value Date [...] <15 No results found for: MICROALBUR , [id number] In addition to the above an extensive [...] goals of ~70-75. - no indication for WOOD ROUTER HAND at this time ANEUDY SIMONS 09/05/2024 This [...] 7:56 AM EDT Hospital Medicine Progress Note [facility] Chief Concern / Reason for Follow-Up [...] 142* 162* 145* Lab 09/05/24 0724 09/04/24 16209/04/24 0522 09/04/24 0220 09/03/24 1343 09/03/24 1049 CALCIUM 8.6 9.1 8.5* 9.0 < > 8.6 MAGNESIUM 2.0 2.4 2.4 2.5 < > 1.8 PHOSPHORUS 2.1 -- 2.2 -- -- 2.5 < > = values in this interval not displayed. Lab 09/05/24 0709/04/24 0509/03/24 0535 09/02/24 1700 INR 2.5* 3.0* 2.0* 1.9* PROTHROMBIN TIME 27.8* 32.0* 22.9* 22.2* Lab 09/05/24 0709/04/24 0509/03/24 0529 09/02/24 1700 ALT 28 30 45 [...] BMPs to BID NADIYA (acute kidney injury) ([facility]) Admit Cr 3.01 (from 2.91 on 09/02, [...] kidney disease) stage 4, GFR 15-29 ml/min ([facility]) As above for NADIYA Metabolic encephalopathy Likely [...] pain that has since worsened and is 8/ today. He has had regular, semi-formed, brown [...] min): total time personally spent today, including dbht-mv-ohju with patient and/or caregiver(s), as well as ryp-dbqj-qs-face time spent in care coordination, consultation, reviewing records, and documentation was 55 minutes. Kathie Sanchez MD [facility] Medicine 09/06/2024 7:07 AM * Leatha Ceja - 09/05/2024 7:12 AM EDT HEPATOLOGY CONSULT NOTE Consulted by: Kathie Sancehz MD Consult Question: Cirrhosis co-management History of [...] ineligible d/t alcohol use. Then re-admitted to [facility] 07/25-07/29 after worsening outpatient labs (NADIYA). also noted ongoing/worsening jaundice. Repeat US without ascites. His last drink was prior to admission at . During prior admission, renal function improved with volume expansion, held octreotide and midodrine. [facility] Admission -08/19/24 with generalized weakness, worsening [...] assessment and plan. 39 y.o. male with shelter history of alcoholic liver disease, jaundice, ascites, [...] documented for this encounter. Date: 09/04/2024 Room: [address] Reviewed Pertinent hospital course: Yes Hospital [...] Alarms: Bed Alarms Status: Not needed-patient on [place] fall risk precautions with other interventions in [...] documented for this encounter. Date: 09/04/2024 Room: [address] Reviewed Pertinent hospital course: Yes Hospital [...] Alarms: Bed Alarms Status: Not needed-patient on [place] fall risk precautions with other interventions in [...] 10:43 AM EDT Hospital Medicine Progress Note [facility] // [facility] Chief Concern / Reason for Follow-Up [...] affect, pleasant, cooperative Laboratory Data Lab 09/04/24 0509/03/24 1726 09/03/24 0529 09/02/24 1700 WBC 9.6 [...] 3.44* GLUCOSE 162* 145* 194* 115* Lab 09/04/2452109/04/2421909/03/24 21509/03/24 1816 09/03/24 1343 09/03/24 1049 CALCIUM 8.5* [...] at 09/03/2024 2:13 PM EDT US Duplex Qef-Bwd-Udcbdpx Comp Result Date: 09/03/2024 EXAM: US ABDOMEN COMPLETE EXAM: US DUPLEX [id number] COMPLETE INDICATION: Evaluate for cholecystitis COMPARISON: 09/03/2024 [...] EXAM: US ABDOMEN COMPLETE EXAM: US DUPLEX [id number] COMPLETE INDICATION: Evaluate for cholecystitis COMPARISON: 09/03/2024 [...] BMPs to BID NADIYA (acute kidney injury) ([facility]) Admit Cr 3.01 (from 2.91 on 09/02, [...] kidney disease) stage 4, GFR 15-29 ml/min ([facility]) As above for NADIYA Metabolic encephalopathy Likely [...] another specialty or practice, other licensed professional (PT/OT/RESIDENTIAL GLAZIER/RT), or a non-medical community professional: hepatology Labs [...] this time. Thank you, Chelsy Piper PharmD, [facility] [employer] Forms - Internal Medicine Preferred Contact: [employer] Chat 09/03/2024 12:52 PM * Jarrod Alas MD - 09/03/2024 7:24 AM EDT [facility] ED Reassessment Note Julien Anderson is [...] for admission. Jarrod Alas MD Emergency Medicine [facility] * Rommel Mccoy MD - 09/03/2024 [...] - 09/03/2024 10:15 AM EDT Hospital Medicine [facility] // [facility] Name: Julien Anderson Chief Concern Abd [...] Diagnostic Studies and MDM Documentation US Duplex Pss-Fij-Ebfximn Comp Final Result IMPRESSION: ABDOMEN Cirrhosis and [...] kidney disease) stage 4, GFR 15-29 ml/min ([facility]) Admit Cr 3.01, 3.26 on repeat (from [...] levothyroxine Itching - Cont home cholestyramine Thrombocytopenia ([facility]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 Hypertension No meds. [...] another specialty or practice, other licensed professional (PT/OT/RESIDENTIAL GLAZIER/RT), or a non-medical community professional: hepatology Labs [...] Mccoy MD - 09/03/2024 5:11 AM EDT [facility] ED Note Date of Service: 09/03/2024 [...] department physician Rhythm: normal sinus Rate: normal [place]: left Ectopy: none Conduction: Prolonged QT, left [...] renal injury with increased fluid status. Primary fashion stylist also recently concern for venous thrombosis; plan [...] LLQ . Under sterile conditions, 5 Fr/7cm Enlivex Therapeuticseh catheter was inserted in a LLQ site [...] can be located in EPIC Procedures (or [facility] Imaging) Tabs. Plan discussed with provider Ashley ABDULLAHI from Medicine team 09/04/2024, 3:51 PM. Please call with any questions. Shelia Logan CNP Vascular & Interventional Radiology 09/04/2024,3:51 PM [facility]: [phone] * Rommel Mccoy MD - 09/03/2024 7:01 AM EDTAssociated Order(s): Paracentesis [facility] ED Procedure Note Emergency Department Procedures Paracentesis Date/Time: 09/03/2024 7:01 AM Performed by: Rommel Mccoy MD Authorized by: Ana Maria Ramey MD Consent: Consent obtained: Written Consent given by: Patient Risks, benefits, and alternatives were discussed: yes Risks discussed: Bleeding, bowel perforation, infection and pain Alternatives discussed: No treatment [place] protocol: Procedure explained and questions answered to [...] Time Spent: Time Spent with Patient: Total sjln-ir-stqu time spent with patient (greater than 50% of the visit was for the purpose of discussion and counseling): 35 minutes. FARHANA CONTRERAS CNP Vascular & Interventional Radiology 09/08/2024,9:33 AM [facility]: [phone]) [1] Social History Tobacco Use Smoking Status [...] Consult Staff. Gee May Nephrology fellow Pager [phone] Chief Complaint Chief Complaint Patient presents with [...] TIBC , FERRITIN No results found for: [id number] , FOLATE Lab Results Component Value Date [...] <15 No results found for: MICROALBUR , [id number] In addition to the above an extensive [...] Seun Phillips - 09/04/2024 3:03 PM EDT [facility] Hospital Case Management/Social Work Department Brief Assessment Re-Admission within 30 days Planned or unplanned? Unplanned If planned: Reason? N/A If unplanned: Reason? Abd pain Discuss with patient any barriers to prevent re-admission? N/A Patient Information Admission diagnosis: Demographic verified and updated as needed Support Systems Designated decision maker (POA or Next of Kin): Nikkie Anderson Phone #: [phone] Relationship: Spouse Living Arrangements Prior to Hospitalization [...] at this time. 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 May need a work note at discharge. Patient has no history of or current mental health concerns or diagnoses. Patient has a history of or current alcohol abuse. Last consumed about 1.5 months ago. No home oxygen or dialysis. No history of group home facility or inpatient rehabilitation facility admissions. No [...] interest(s) are disclosed as appropriate. NUBIA Navas [employer] [phone] * Shelia Logan CNP - 09/04/2024 11:54 [...] Recent Labs 09/03/24 0529 09/03/24 1726 09/04/24 05 WBC 10.8 9.9 9.6 HGB 11.9* 8.4* 8.5* HCT 33.0* 23.1* 23.1* MCV 98.6 98.3 98.6 PLT 71* 42* 41* Recent Labs 08/19/24 0259 09/02/24 1700 09/03/24 1049 09/03/24 1343 09/03/24 2150 09/04/24 0220 09/04/24 05 NA 134 < > 133 < > [...] Labs 08/15/24 1035 08/16/24 0718 09/02/24 17009/03/24 0509/04/24 05 BILITOT -- < > 35.4* 35.4* 32.5* [...] 17.39* Recent Labs 09/02/24 17009/03/24 0535 09/04/24 05 INR 1.9* 2.0* 3.0* PROTIME 22.2* 22.9* [...] CNP Vascular & Interventional Radiology 09/04/2024,3:32 PM [facility]: [phone]) [1] Social History Tobacco Use Smoking Status [...] ineligible d/t alcohol use. Then re-admitted to [facility] 07/25-07/29 after worsening outpatient labs (NADIYA). also noted ongoing/worsening jaundice. Repeat US without ascites. His last drink was prior to admission at . During prior admission, renal function improved with volume expansion, held octreotide and midodrine. [facility] Admission -08/19/24 with generalized weakness, worsening [...] assessment and plan. 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 Pt has history [...] and is agreeable. Receiving RN may call [phone] to consult ED RN with questions regarding [...] chest. Will continue to monitor. * Kirt Dyosn RN - 09/04/2024 5:42 PM EDT Straight [...] try to urinate * Maria Del Carmen oDn RN - 09/03/2024 4:11 PM EDT aware [...] and 2 lavender tops as directed by biology laboratory assistant. Labs being walked up to micro by [...] Patient will remain free of falls Goal: [place] Fall Precautions Outcome: Progressing * Plan of Care - Lydia Harrison RN - 09/09/2024 2:00 AM EDT Problem: High Fall Risk Precautions Goal: High Fall Risk Precautions Outcome: Progressing Problem: Patient will remain free of falls Goal: [place] Fall Precautions Outcome: Progressing Problem: Psychosocial Needs [...] Schultz RN - 09/08/2024 1:03 PM EDT [facility] Case Management/Social Work Department Progress Note [...] disease. PCP: Enedina Mcguire NP Home Pharmacy: [address] [address] [facility] [address] [facility] [id number] Medical Insurance Coverage: Payor: [facility] / Plan: [employer] / Product Type: *No Producttype* / [...] for discharge planning needs. JAVAN SCHULTZ RN [phone] * Care Coordination - Kandy Fuentes - 09/07/2024 3:32 PM EDT [facility] Case Management/Social Work Department Progress Note [...] disease. PCP: Enedina Mcguire NP Home Pharmacy: [facility] [address] [place] [id number] [address] [facility] [address] [facility] [id number] Medical Insurance Coverage: Payor: [facility] / Plan: [employer] / Product Type: *No Producttype* / [...] Patient will remain free of falls Goal: [place] Fall Precautions Outcome: Progressing Problem: Daily Care [...] Patient will remain free of falls Goal: [place] Fall Precautions 09/[id number] by Baudilio Macario RN [...] Marshall RN - 09/05/2024 10:03 AM EDT [facility] Case Management/Social Work Department Progress Note [...] hyperlipidemia (07/26/2024), Renal cell carcinoma (CMS-HCC), Thrombocytopenia ([facility]), and Thyroid disease. PCP: Enedina Mcguire NP Home Pharmacy: [facility] [id number] [place] [address] [facility] [facility] [address] [facility] [address] Medical Insurance Coverage: Payor: [facility] / Plan: [facility] / Product Type: *No Producttype* / Other Pertinent Information Per team in interdisciplinary rounds, patient is not medically ready for discharge today. SBP and cirrhosis, IV ATB; renal consulted for NADIYA, receiving albumin. Discharge Plan Anticipated discharge plan: Home Anticipated discharge date: 09/08 CM/SW will continue to follow and remain available for discharge planning needs. Abiola Marshall RN/Welt StitcherDirector Experimental Medicine Services [phone] * Plan of Care - Minh Torres RN - 09/05/2024 12:50 AM EDT Problem: High Fall Risk Precautions Goal: High Fall Risk Precautions Outcome: Progressing documented in this encounter Plan of Treatment Upcoming Encounters Date Type Department Care Team (Late st Contact Info) Description 12/05/2024 8:01 AM EDT Hospital Encounter [facility] ENDOSCOPY [address] [place] [id number] Chris Orosco MD [address] [place] [phone] 12/05/2024 8:01 AM EDT - 12/05/2024 8:31 AM EDT Surgery [facility] ENDOSCOPY [address] [place] [id number] Chris Orosco MD [address] [place] [phone] EGD Scheduled Procedures Name Priority Associated Diagnoses Date/Ti me EGD Cirrhosis of liver with ascites, unspecified hepatic cirrhosis type ([facility]) 12/05/2024 8:01 AM EDT documented as of [...] STAT 09/03/2024 10:49 AM EDT US DUPLEX [id number] COMPLETE STAT 09/03/2024 10:30 AM EDT US [...] PM EDT) Gram Stain Result Cytospin Results: [facility] Gram Stain Result Polymorphonuclear Leukocytes Seen; [facility] Gram Stain Result No Organisms Seen; [facility] Culture Result No Growth After 5 Days [facility] Paracentesis Fluid ABDOMINOPELVIC CAVITY STRUCTURE / Unknown 09/09/2024 2:57 PM EDT 09/09/2024 3:38 PM EDT Ashley JACOME MICROBIOLOGY - GENERAL ORDERA BLES Final Result [facility] [address] * Anaerobic culture (09/09/2024 2:56 PM EDT) Culture Result No Anaerobes Isolated in 5 Days [facility] Peritoneal Fluid ABDOMEN / Unknown 2024 2:56 PM EDT 09/09/2024 4:12 PM EDT Ashley JACOME MICROBIOLOGY - GENERAL ORDERA BLES Final Result [facility] [address] [facility]. [address] * Body Fluid Cell Count (09/09/2024 2:56 PM EDT) Color, Fluid Yellow 09/09/2024 5:27 PM EDT [facility] Clarity, Fluid Clear 09/09/2024 5:27 PM EDT [facility] Neutrophil %, Fluid 14 % 09/09/2024 5:27 PM EDT [facility] Lymphocytes %, Fluid 20 % 09/09/2024 5:27 PM EDT [facility] Mesothelial %, Fluid 5 % 09/09/2024 5:27 PM EDT [facility] Macrophage %, Fluid 61 % 09/09/2024 5:27 PM EDT [facility] RBC, Fluid 0 /uL 09/09/2024 5:27 PM EDT [facility] Total Nucleated Cells, Fluid 272 /uL 09/09/2024 5:27 PM EDT [facility] Comment:Total Nucleated Cell s represent WBCs and other nucleated cells in the fluid such as lining cells. Paracentesis Fluid ABDOMEN / Unknown 08/13 2:56 PM EDT 09/09/2024 3:38 PM EDT us Ashley JACOME BODY FLUIDS AND STOOLS ORDERA BLES Final Result [facility] [address] [place] [address], [facility] * PARACENTESIS (09/09/2024 2:19 PM EDT) Narrative Procedure Note NAA Rodriguez - 09/09/2024 2:19 PM EDT Paracentesis Procedure Note Date: 09/09/2024 Time: 2:20 PM Indication: Ascites Procedure: Diagnostic and Therapeutic Paracentesis Informed consent was obtained. Ultrasound was used to evaluate thepresence of peritoneal fluid. Optimal site marked LLQ . Under sterileconditions, 5 Fr/7cm Enlivex Therapeuticseh catheter was inserted in a LLQ site [...] - 15.1 seconds 09/09/2024 6:52 AM EDT [facility] INR 2.2(H) 0.9 - 1.1 09/09/2024 6:52 AM EDT [facility] Comment: RECOMMENDED THERAPEUTIC RANGES USING INR : Stable oral anticoagulant therapy: 2.0 - 3.0 Mechanical prosthetic heart valve: 2.5 - 3.5 Recurrent acute myocardial infarction: 2.5 - 3.5 Plasma 09/09/2024 6:12 AM EDT 09/09/2024 6:37 AM EDT Kathie Sanchez MD LAB BLOOD ORDERABLES Final Re sult [facility] [address] [place] [address], [facility] * (ABNORMAL) Hepatic Function Panel, AM (09/09/2024 6:12 AM EDT) Total Bilirubin 20.2(H) 0.0 - 1.5 mg/dL 09/09/2024 7:09 AM EDT [facility] Bilirubin, Direct 9.75(H) 0.00 - 0.40 mg/dL 09/09/2024 7:09 AM EDT [facility] AST 55(H) 13 - 39 U/L 09/09/2024 7:09 AM EDT [facility] ALT 26 7 - 52 U/L 09/09/2024 7:09 AM EDT [facility] Alkaline Phosphatase 152(H) 36 - 125 U/L 09/09/2024 7:09 AM EDT [facility] Total Protein 5.0(L) 6.4 - 8.9 g/dL 09/09/2024 7:09 AM EDT [facility] Albumin 3.7 3.5 - 5.7 g/dL 09/09/2024 7:09 AM EDT [facility] Bilirubin, Indirect 10.45(H) 0.00 - 1.10 mg/dL 09/09/2024 7:09 AM EDT [facility] Plasma 09/09/2024 6:12 AM EDT 09/09/2024 6:37 AM EDT Kathie Sanchez MD LAB BLOOD ORDERABLES Final Re sult Performing Organization Address City/[facility]/ZIP Co de Phone Number [facility] [address] * (ABNORMAL) CBC, AM (09/09/2024 6:12 AM EDT) WBC 8.3 3.8 - 10.8 10E3/uL 09/09/2024 6:50 AM EDT [facility] RBC 2.34(L) 4.20 - 5.80 10E6/uL 09/09/2024 6:50 AM EDT [facility] Hemoglobin 8.7(L) 13.2 - 17.1 g/dL 09/09/2024 6:50 AM EDT [facility] Hematocrit 23.6(L) 38.5 - 50.0 % 09/09/2024 6:50 AM EDT [facility] MCV 100.9(H) 80.0 - 100.0 fL 09/09/2024 6:50 AM EDT [facility] MCH 37.3(H) 27.0 - 33.0 pg 09/09/2024 6:50 AM EDT [facility] MCHC 36.9(H) 32.0 - 36.0 g/dL 09/09/2024 6:50 AM EDT [facility] RDW 22.7(H) 11.0 - 15.0 % 09/09/2024 6:50 AM EDT [facility] Platelets 45(L) 140 - 400 10E3/uL 09/09/2024 6:50 AM EDT [facility] Comment:CNV MPV 8.6 7.5 - 11.5 fL 09/09/2024 6:50 AM EDT [facility] Whole Blood 09/09/2024 6:12 AM EDT 09/09/2024 6:37 AM EDT Kathie Sanchez MD LAB BLOOD ORDERABLES Final Re sult [facility] [address] [place] [address], [facility] * Magnesium, AM (09/09/2024 6:12 AM EDT) Magnesium 1.7 1.5 - 2.5 mg/dL 09/09/2024 7:09 AM EDT [facility] Plasma 09/09/2024 6:12 AM EDT 09/09/2024 6:37 AM EDT us Kathie Sanchez MD LAB BLOOD ORDERABLES Final Re sult [facility] [address] [place], [place] [address] * (ABNORMAL) Renal Function Panel w/EGFR (09/09/2024 6:12 AM EDT) Sodium 135 133 - 146 mmol/L 09/09/2024 7:09 AM EDT [facility] Potassium 3.5 3.5 - 5.3 mmol/L 09/09/2024 7:09 AM EDT [facility] Chloride 110 98 - 110 mmol/L 09/09/2024 7:09 AM EDT [facility] CO2 15(L) 21 - 33 mmol/L 09/09/2024 7:09 AM EDT [facility] Anion Gap 10 3 - 16 mmol/L 09/09/2024 7:09 AM EDT [facility] BUN 30(H) 7 - 25 mg/dL 09/09/2024 7:09 AM EDT [facility] Creatinine 2.47(H) 0.60 - 1.30 mg/dL 09/09/2024 7:09 AM EDT [facility] Glucose 129(H) 70 - 100 mg/dL 09/09/2024 7:09 AM EDT [facility] Calcium 8.4(L) 8.6 - 10.3 mg/dL 09/09/2024 7:09 AM EDT [facility] Phosphorus 2.3 2.1 - 4.7 mg/dL 09/09/2024 7:09 AM EDT [facility] Albumin 3.7 3.5 - 5.7 g/dL 09/09/2024 7:09 AM EDT [facility] Osmolality, Calculated 288 278 - 305 mOsm/kg 09/09/2024 7:09 AM EDT [facility] EGFR 33 09/09/2024 7:09 AM EDT [...] ORDERABLES Final Re sult Performing Organization Address City/[facility] Co de Phone Number [facility] [address] [facility]. [address] * Clostridium Difficile Toxin A/B Antigen (09/09/2024 4:58 AM EDT) CDIFF Tox AGN Negative Negative 09/09/2024 1:57 PM EDT [facility] Comment:C. difficile nucleic acid testing is [...] ORDERA BLES Final Result Performing Organization Address [facility]/ZIP Co de Phone Number [facility] [address] * Enteric Pathogen Panel (09/09/2024 4:58 AM EDT) Pathologist [facility] Campylobacter Group (C. ecoli, C. jejuni, C. trino) Not Detected Not Detected 09/09/2024 9:44 AM EDT [facility] Salmonella species Not Detected Not Detected 09/09/2024 9:44 AM EDT [facility] Shigella species Not Detected Not Detected 09/09/2024 9:44 AM EDT [facility] Vibrio Group (Vibrio cholerae, Vibrio parahaemolyticus) Not Detected Not Detected 09/09/2024 9:44 AM EDT [facility] Yersinia enterocolitica Not Detected Not Detected 09/09/2024 9:44 AM EDT [facility] Shiga toxin 1 Not Detected Not Detected 09/09/2024 9:44 AM EDT [facility] Shiga toxin 2 Not Detected Not Detected 09/09/2024 9:44 AM EDT [facility] Norovirus Not Detected Not Detected 09/09/2024 9:44 AM EDT [facility] Rotavirus Not Detected Not Detected 09/09/2024 9:44 AM EDT [facility] Comment: The Enteric Pathogen Panel [...] FLUIDS AND STOOLS ORDERA BLES Final Result [facility] [address] * (ABNORMAL) Clostridium difficile DNA Amplification (09/09/2024 4:58 AM EDT) Clost. Diff DNA Amp. Positive( A) Negative [...] FLUIDS AND STOOLS ORDERA BLES Final Result [facility] [address] [place] [address], [facility] * (ABNORMAL) Renal Function Panel w/EGFR (09/08/2024 3:50 PM EDT) Sodium 136 133 - 146 mmol/L 09/08/2024 6:01 PM EDT [facility] Potassium 3.5 3.5 - 5.3 mmol/L 09/08/2024 6:01 PM EDT [facility] Chloride 110 98 - 110 mmol/L 09/08/2024 6:01 PM EDT [facility] CO2 13(L) 21 - 33 mmol/L 09/08/2024 6:01 PM EDT [facility] Anion Gap 13 3 - 16 mmol/L 09/08/2024 6:01 PM EDT [facility] BUN 29(H) 7 - 25 mg/dL 09/08/2024 6:01 PM EDT [facility] Creatinine 2.24(H) 0.60 - 1.30 mg/dL 09/08/2024 6:01 PM EDT [facility] Glucose 114(H) 70 - 100 mg/dL 09/08/2024 6:01 PM EDT [facility] Calcium 8.5(L) 8.6 - 10.3 mg/dL 09/08/2024 6:01 PM EDT [facility] Phosphorus 2.3 2.1 - 4.7 mg/dL 09/08/2024 6:01 PM EDT [facility] Albumin 3.5 3.5 - 5.7 g/dL 09/08/2024 6:01 PM EDT [facility] Osmolality, Calculated 289 278 - 305 mOsm/kg 09/08/2024 6:01 PM EDT [facility] EGFR 37 09/08/2024 6:01 PM EDT [facility] Comment:As of 2021, the estimated [...] MD LAB BLOOD ORDERABLES Final Res ult [facility] [address] [place] [address], [facility] * (ABNORMAL) Renal Function Panel w/EGFR (09/08/2024 2:08 PM EDT) Sodium 136 133 - 146 mmol/L 09/08/2024 2:55 PM EDT [facility] Potassium 3.3(L) 3.5 - 5.3 mmol/L 09/08/2024 2:55 PM EDT [facility] Chloride 112(H) 98 - 110 mmol/L 09/08/2024 2:55 PM EDT [facility] CO2 16(L) 21 - 33 mmol/L 09/08/2024 2:55 PM EDT [facility] Anion Gap 8 3 - 16 mmol/L 09/08/2024 2:55 PM EDT [facility] BUN 30(H) 7 - 25 mg/dL 09/08/2024 2:55 PM EDT [facility] Creatinine 2.22(H) 0.60 - 1.30 mg/dL 09/08/2024 2:55 PM EDT [facility] Glucose 135(H) 70 - 100 mg/dL 09/08/2024 2:55 PM EDT [facility] Calcium 8.1(L) 8.6 - 10.3 mg/dL 09/08/2024 2:55 PM EDT [facility] Phosphorus 1.9(L) 2.1 - 4.7 mg/dL 09/08/2024 2:55 PM EDT [facility] Albumin 3.3(L) 3.5 - 5.7 g/dL 09/08/2024 2:55 PM EDT [facility] Osmolality, Calculated 290 278 - 305 mOsm/kg 09/08/2024 2:55 PM EDT [facility] EGFR 37 09/08/2024 2:55 PM EDT [facility] Comment:As of 2021, the estimated [...] MD LAB BLOOD ORDERABLES Final Re sult [facility] [address] [place] [address], [facility] * (ABNORMAL) Hepatic Function Panel, AM (09/08/2024 4:05 AM EDT) Total Bilirubin 18.7(H) 0.0 - 1.5 mg/dL 09/08/2024 7:11 AM EDT [facility] Bilirubin, Direct 9.06(H) 0.00 - 0.40 mg/dL 09/08/2024 7:11 AM EDT [facility] AST 48(H) 13 - 39 U/L 09/08/2024 7:11 AM EDT [facility] ALT 26 7 - 52 U/L 09/08/2024 7:11 AM EDT [facility] Alkaline Phosphatase 114 36 - 125 U/L 09/08/2024 7:11 AM EDT [facility] Total Protein 4.8(L) 6.4 - 8.9 g/dL 09/08/2024 7:11 AM EDT [facility] Albumin 3.4(L) 3.5 - 5.7 g/dL 09/08/2024 7:11 AM EDT [facility] Bilirubin, Indirect 9.64(H) 0.00 - 1.10 mg/dL 09/08/2024 7:11 AM EDT [facility] Plasma 09/08/2024 4:05 AM EDT 09/08/2024 4:26 AM EDT us Azalea Hughes DO LAB BLOOD ORDERABLES Final Res ult Performing Organization Address City/State/[facility] Co de Phone Number [facility] [address] * (ABNORMAL) Protime-INR, AM (09/08/2024 4:05 AM EDT) Protime 26.0(H) 12.1 - 15.1 seconds 09/08/2024 4:39 AM EDT [facility] INR 2.3(H) 0.9 - 1.1 09/08/2024 4:39 AM EDT [facility] Comment: RECOMMENDED THERAPEUTIC RANGES USING INR : Stable oral anticoagulant therapy: 2.0 - 3.0 Mechanical prosthetic heart valve: 2.5 - 3.5 Recurrent acute myocardial infarction: 2.5 - 3.5 Plasma 09/08/2024 4:05 AM EDT 09/08/2024 4:20 AM EDT Azalea Keagan LAB BLOOD ORDERABLES Final Res ult [facility] [address] * Magnesium (09/08/2024 4:05 AM EDT) Magnesium 1.5 1.5 - 2.5 mg/dL 09/08/2024 7:11 AM EDT [facility] Plasma 09/08/2024 4:05 AM EDT 09/08/2024 4:26 AM EDT [facility] LAB BLOOD ORDERABLES Final Res ult Performing Organization Address [facility] Co de Phone Number [facility] [address] * (ABNORMAL) Renal Function Panel w/EGFR (09/08/2024 4:05 AM EDT) Sodium 137 133 - 146 mmol/L 09/08/2024 5:37 AM EDT [facility] Potassium 3.3(L) 3.5 - 5.3 mmol/L 09/08/2024 5:37 AM EDT [facility] Chloride 112(H) 98 - 110 mmol/L 09/08/2024 5:37 AM EDT [facility] CO2 13(L) 21 - 33 mmol/L 09/08/2024 7:11 AM EDT [facility] Anion Gap 12 3 - 16 mmol/L 09/08/2024 7:11 AM EDT [facility] BUN 31(H) 7 - 25 mg/dL 09/08/2024 7:11 AM EDT [facility] Creatinine 2.36(H) 0.60 - 1.30 mg/dL 09/08/2024 7:11 AM EDT [facility] Glucose 147(H) 70 - 100 mg/dL 09/08/2024 7:11 AM EDT [facility] Calcium 8.3(L) 8.6 - 10.3 mg/dL 09/08/2024 7:11 AM EDT [facility] Phosphorus 2.2 2.1 - 4.7 mg/dL 09/08/2024 7:11 AM EDT [facility] Albumin 3.4(L) 3.5 - 5.7 g/dL 09/08/2024 7:11 AM EDT [facility] Osmolality, Calculated 293 278 - 305 mOsm/kg 09/08/2024 7:11 AM EDT [facility] EGFR 35 09/08/2024 7:11 AM EDT [facility] Comment:As of 2021, the estimated [...] DO LAB BLOOD ORDERABLES Final Res ult [facility] [address] [place] [address], [facility] * (ABNORMAL) CBC (09/08/2024 4:05 AM EDT) WBC 6.5 3.8 - 10.8 10E3/uL 09/08/2024 5:00 AM EDT [facility] RBC 2.21(L) 4.20 - 5.80 10E6/uL 09/08/2024 5:00 AM EDT [facility] Hemoglobin 8.0(L) 13.2 - 17.1 g/dL 09/08/2024 5:00 AM EDT [facility] Hematocrit 22.3(L) 38.5 - 50.0 % 09/08/2024 5:00 AM EDT [facility] MCV 100.8(H) 80.0 - 100.0 fL 09/08/2024 5:00 AM EDT [facility] MCH 36.1(H) 27.0 - 33.0 pg 09/08/2024 5:00 AM EDT [facility] MCHC 35.8 32.0 - 36.0 g/dL 09/08/2024 5:00 AM EDT [facility] RDW 23.4(H) 11.0 - 15.0 % 09/08/2024 5:00 AM EDT [facility] Platelets 43(L) 140 - 400 10E3/uL 09/08/2024 5:00 AM EDT [facility] Comment: CNV Specimen checked for clots. None detected. MPV 8.8 7.5 - 11.5 fL 09/08/2024 5:00 AM EDT [facility] Whole Blood 09/08/2024 4:05 AM EDT 09/08/2024 4:20 AM EDT us Azalea Hughes DO LAB BLOOD ORDERABLES Final Res ult [facility] [address] [place] [address], [facility] * (ABNORMAL) Renal Function Panel w/EGFR (09/07/2024 3:36 PM EDT) Sodium 139 133 - 146 mmol/L 09/07/2024 4:10 PM EDT [facility] Potassium 3.4(L) 3.5 - 5.3 mmol/L 09/07/2024 4:10 PM EDT [facility] Chloride 112(H) 98 - 110 mmol/L 09/07/2024 4:10 PM EDT [facility] CO2 18(L) 21 - 33 mmol/L 09/07/2024 4:10 PM EDT [facility] Anion Gap 9 3 - 16 mmol/L 09/07/2024 4:10 PM EDT [facility] BUN 34(H) 7 - 25 mg/dL 09/07/2024 4:10 PM EDT [facility] Creatinine 2.40(H) 0.60 - 1.30 mg/dL 09/07/2024 4:10 PM EDT [facility] Glucose 125(H) 70 - 100 mg/dL 09/07/2024 4:10 PM EDT [facility] Calcium 8.5(L) 8.6 - 10.3 mg/dL 09/07/2024 4:10 PM EDT [facility] Phosphorus 2.0(L) 2.1 - 4.7 mg/dL 09/07/2024 4:10 PM EDT [facility] Albumin 3.6 3.5 - 5.7 g/dL 09/07/2024 4:10 PM EDT [facility] Osmolality, Calculated 297 278 - 305 mOsm/kg 09/07/2024 4:10 PM EDT [facility] EGFR 34 09/07/2024 4:10 PM EDT [facility] Comment:As of 2021, the estimated [...] DO LAB BLOOD ORDERABLES Final Res ult [facility] [address] * (ABNORMAL) Protime-INR, AM (09/07/2024 3:42 AM EDT) Protime 26.1(H) 12.1 - 15.1 seconds 09/07/2024 4:21 AM EDT [facility] INR 2.3(H) 0.9 - 1.1 09/07/2024 4:21 AM EDT [facility] Comment: RECOMMENDED THERAPEUTIC RANGES USING INR : Stable oral anticoagulant therapy: 2.0 - 3.0 Mechanical prosthetic heart valve: 2.5 - 3.5 Recurrent acute myocardial infarction: 2.5 - 3.5 Plasma 09/07/2024 3:42 AM EDT 09/07/2024 3:50 AM EDT Azalea Hughes DO LAB BLOOD ORDERABLES Final Res ult [facility] [address] [facility]. [address] * (ABNORMAL) Hepatic Function Panel, AM (09/07/2024 3:42 AM EDT) Total Bilirubin 18.9(H) 0.0 - 1.5 mg/dL 09/07/2024 5:37 AM EDT [facility] Bilirubin, Direct 9.8(H) 0.0 - 0.4 mg/dL 09/07/2024 5:37 AM EDT [facility] AST 47(H) 13 - 39 U/L 09/07/2024 5:37 AM EDT [facility] ALT 27 7 - 52 U/L 09/07/2024 5:37 AM EDT [facility] Alkaline Phosphatase 104 36 - 125 U/L 09/07/2024 5:37 AM EDT [facility] Total Protein 4.9(L) 6.4 - 8.9 g/dL 09/07/2024 5:37 AM EDT [facility] Albumin 3.5 3.5 - 5.7 g/dL 09/07/2024 5:37 AM EDT [facility] Bilirubin, Indirect 9.1(H) 0.0 - 1.1 mg/dL 09/07/2024 5:37 AM EDT [facility] Plasma 09/07/2024 3:42 AM EDT 09/07/2024 3:54 AM EDT [facility] LAB BLOOD ORDERABLES Final Res ult Performing Organization Address City/[facility]/ZIP Co de Phone Number [facility] [address] [facility]. [address] * Magnesium (09/07/2024 3:42 AM EDT) Magnesium 1.7 1.5 - 2.5 mg/dL 09/07/2024 5:37 AM EDT [facility] Plasma 09/07/2024 3:42 AM EDT 09/07/2024 3:54 AM EDT [facility] LAB BLOOD ORDERABLES Final Res ult Performing Organization Address [facility] Co de Phone Number [facility] [address] [facility]. [address] * (ABNORMAL) Renal Function Panel w/EGFR (09/07/2024 3:42 AM EDT) Sodium 137 133 - 146 mmol/L 09/07/2024 5:37 AM EDT [facility] Potassium 3.2(L) 3.5 - 5.3 mmol/L 09/07/2024 5:37 AM EDT [facility] Chloride 111(H) 98 - 110 mmol/L 09/07/2024 5:37 AM EDT [facility] CO2 15(L) 21 - 33 mmol/L 09/07/2024 5:37 AM EDT [facility] Anion Gap 11 3 - 16 mmol/L 09/07/2024 5:37 AM EDT [facility] BUN 36(H) 7 - 25 mg/dL 09/07/2024 5:37 AM EDT [facility] Creatinine 2.60(H) 0.60 - 1.30 mg/dL 09/07/2024 5:37 AM EDT [facility] Glucose 150(H) 70 - 100 mg/dL 09/07/2024 5:37 AM EDT [facility] Calcium 8.3(L) 8.6 - 10.3 mg/dL 09/07/2024 5:37 AM EDT [facility] Phosphorus 1.9(L) 2.1 - 4.7 mg/dL 09/07/2024 5:37 AM EDT [facility] Albumin 3.5 3.5 - 5.7 g/dL 09/07/2024 5:37 AM EDT [facility] Osmolality, Calculated 295 278 - 305 mOsm/kg 09/07/2024 5:37 AM EDT [facility] EGFR 31 09/07/2024 5:37 AM EDT [facility] Comment:As of 2021, the estimated [...] DO LAB BLOOD ORDERABLES Final Res ult [facility] [address] [place] [address], [facility] * (ABNORMAL) CBC (09/07/2024 3:42 AM EDT) WBC 4.0 3.8 - 10.8 10E3/uL 09/07/2024 4:09 AM EDT [facility] RBC 2.06(L) 4.20 - 5.80 10E6/uL 09/07/2024 4:09 AM EDT [facility] Hemoglobin 7.4(L) 13.2 - 17.1 g/dL 09/07/2024 4:09 AM EDT [facility] Hematocrit 20.7(L) 38.5 - 50.0 % 09/07/2024 4:09 AM EDT [facility] MCV 100.2(H) 80.0 - 100.0 fL 09/07/2024 4:09 AM EDT [facility] MCH 35.8(H) 27.0 - 33.0 pg 09/07/2024 4:09 AM EDT [facility] MCHC 35.7 32.0 - 36.0 g/dL 09/07/2024 4:09 AM EDT [facility] RDW 22.4(H) 11.0 - 15.0 % 09/07/2024 4:09 AM EDT [facility] Platelets 40(L) 140 - 400 10E3/uL 09/07/2024 4:09 AM EDT [facility] Comment: CNV Specimen checked for clots. None detected. MPV 8.6 7.5 - 11.5 fL 09/07/2024 4:09 AM EDT [facility] Whole Blood 09/07/2024 3:42 AM EDT 09/07/2024 3:50 AM EDT us Azalea Hughes DO LAB BLOOD ORDERABLES Final Res ult [facility] [address] * (ABNORMAL) CBC (09/06/2024 4:37 PM EDT) WBC 5.1 3.8 - 10.8 10E3/uL 09/06/2024 5:19 PM EDT [facility] RBC 2.32(L) 4.20 - 5.80 10E6/uL 09/06/2024 5:19 PM EDT [facility] Hemoglobin 8.3(L) 13.2 - 17.1 g/dL 09/06/2024 5:19 PM EDT [facility] Hematocrit 23.3(L) 38.5 - 50.0 % 09/06/2024 5:19 PM EDT [facility] MCV 100.4(H) 80.0 - 100.0 fL 09/06/2024 5:19 PM EDT [facility] MCH 35.8(H) 27.0 - 33.0 pg 09/06/2024 5:19 PM EDT [facility] MCHC 35.7 32.0 - 36.0 g/dL 09/06/2024 5:19 PM EDT [facility] RDW 22.7(H) 11.0 - 15.0 % 09/06/2024 5:19 PM EDT [facility] Platelets 45(L) 140 - 400 10E3/uL 09/06/2024 5:19 PM EDT [facility] Comment:CNV MPV 8.1 7.5 - 11.5 fL 09/06/2024 5:19 PM EDT [facility] Whole Blood 09/06/2024 4:37 PM EDT 09/06/2024 4:45 PM EDT us Azalea Hughes DO LAB BLOOD ORDERABLES Final Res ult [facility] [address] * (ABNORMAL) Renal Function Panel w/EGFR (09/06/2024 4:37 PM EDT) Sodium 137 133 - 146 mmol/L 09/06/2024 5:17 PM EDT [facility] Potassium 3.2(L) 3.5 - 5.3 mmol/L 09/06/2024 5:17 PM EDT [facility] Chloride 109 98 - 110 mmol/L 09/06/2024 5:17 PM EDT [facility] CO2 17(L) 21 - 33 mmol/L 09/06/2024 5:17 PM EDT [facility] Anion Gap 11 3 - 16 mmol/L 09/06/2024 5:17 PM EDT [facility] BUN 37(H) 7 - 25 mg/dL 09/06/2024 5:17 PM EDT [facility] Creatinine 2.66(H) 0.60 - 1.30 mg/dL 09/06/2024 5:17 PM EDT [facility] Glucose 108(H) 70 - 100 mg/dL 09/06/2024 5:17 PM EDT [facility] Calcium 8.7 8.6 - 10.3 mg/dL 09/06/2024 5:17 PM EDT [facility] Phosphorus 2.2 2.1 - 4.7 mg/dL 09/06/2024 5:17 PM EDT [facility] Albumin 3.9 3.5 - 5.7 g/dL 09/06/2024 5:17 PM EDT [facility] Osmolality, Calculated 293 278 - 305 mOsm/kg 09/06/2024 5:17 PM EDT [facility] EGFR 30 09/06/2024 5:17 PM EDT [facility] Comment:As of 2021, the estimated [...] DO LAB BLOOD ORDERABLES Final Res ult [facility] [address] [place] [address], [facility] * (ABNORMAL) Hepatic Function Panel, AM (09/06/2024 4:30 AM EDT) Total Bilirubin 21.3(H) 0.0 - 1.5 mg/dL 09/06/2024 5:40 AM EDT [facility] Bilirubin, Direct 14.43(H) 0.00 - 0.40 mg/dL 09/06/2024 5:40 AM EDT [facility] AST 46(H) 13 - 39 U/L 09/06/2024 5:40 AM EDT [facility] ALT 25 7 - 52 U/L 09/06/2024 5:40 AM EDT [facility] Alkaline Phosphatase 85 36 - 125 U/L 09/06/2024 5:40 AM EDT [facility] Total Protein 5.0(L) 6.4 - 8.9 g/dL 09/06/2024 5:40 AM EDT [facility] Albumin 3.7 3.5 - 5.7 g/dL 09/06/2024 5:40 AM EDT [facility] Bilirubin, Indirect 6.87(H) 0.00 - 1.10 mg/dL 09/06/2024 5:40 AM EDT [facility] Plasma 09/06/2024 4:30 AM EDT 09/06/2024 5:03 AM EDT us Azalea Hughes DO LAB BLOOD ORDERABLES Final Res ult [facility] [address] * (ABNORMAL) Protime-INR, AM (09/06/2024 4:30 AM EDT) Protime 25.3(H) 12.1 - 15.1 seconds 09/06/2024 5:26 AM EDT [facility] INR 2.2(H) 0.9 - 1.1 09/06/2024 5:26 AM EDT [facility] Comment: RECOMMENDED THERAPEUTIC RANGES USING INR : Stable oral anticoagulant therapy: 2.0 - 3.0 Mechanical prosthetic heart valve: 2.5 - 3.5 Recurrent acute myocardial infarction: 2.5 - 3.5 Plasma 09/06/2024 4:30 AM EDT 09/06/2024 5:02 AM EDT Azalea Keagan DO LAB BLOOD ORDERABLES Final Res ult [facility] [address] [facility]. [address] * Magnesium (09/06/2024 4:30 AM EDT) Magnesium 1.8 1.5 - 2.5 mg/dL 09/06/2024 5:40 AM EDT [facility] Plasma 09/06/2024 4:30 AM EDT 09/06/2024 5:03 AM EDT Azalea Hughes LAB BLOOD ORDERABLES Final Res ult Performing Organization Address City/[facility]/ZIP Co de Phone Number [facility] [address] [facility]. [address] * (ABNORMAL) Renal Function Panel w/EGFR (09/06/2024 4:30 AM EDT) Sodium 137 133 - 146 mmol/L 09/06/2024 5:29 AM EDT [facility] Potassium 3.1(L) 3.5 - 5.3 mmol/L 09/06/2024 5:29 AM EDT [facility] Chloride 109 98 - 110 mmol/L 09/06/2024 5:29 AM EDT [facility] CO2 17(L) 21 - 33 mmol/L 09/06/2024 5:29 AM EDT [facility] Anion Gap 11 3 - 16 mmol/L 09/06/2024 5:29 AM EDT [facility] BUN 40(H) 7 - 25 mg/dL 09/06/2024 5:29 AM EDT [facility] Creatinine 2.70(H) 0.60 - 1.30 mg/dL 09/06/2024 5:29 AM EDT [facility] Glucose 122(H) 70 - 100 mg/dL 09/06/2024 5:29 AM EDT [facility] Calcium 8.6 8.6 - 10.3 mg/dL 09/06/2024 5:29 AM EDT [facility] Phosphorus 2.0(L) 2.1 - 4.7 mg/dL 09/06/2024 5:40 AM EDT [facility] Albumin 3.7 3.5 - 5.7 g/dL 09/06/2024 5:40 AM EDT [facility] Osmolality, Calculated 295 278 - 305 mOsm/kg 09/06/2024 5:29 AM EDT [facility] EGFR 29 09/06/2024 5:29 AM EDT [facility] Comment:As of 2021, the estimated [...] DO LAB BLOOD ORDERABLES Final Res ult [facility] [address] * (ABNORMAL) CBC (09/06/2024 4:30 AM EDT) WBC 4.3 3.8 - 10.8 10E3/uL 09/06/2024 6:03 AM EDT [facility] RBC 2.28(L) 4.20 - 5.80 10E6/uL 09/06/2024 6:03 AM EDT [facility] Hemoglobin 8.4(L) 13.2 - 17.1 g/dL 09/06/2024 6:03 AM EDT [facility] Hematocrit 22.8(L) 38.5 - 50.0 % 09/06/2024 6:03 AM EDT [facility] MCV 99.9 80.0 - 100.0 fL 09/06/2024 6:03 AM EDT [facility] MCH 36.9(H) 27.0 - 33.0 pg 09/06/2024 6:03 AM EDT [facility] MCHC 36.9(H) 32.0 - 36.0 g/dL 09/06/2024 6:03 AM EDT [facility] RDW 23.2(H) 11.0 - 15.0 % 09/06/2024 6:03 AM EDT [facility] Platelets 41(L) 140 - 400 10E3/uL 09/06/2024 6:03 AM EDT [facility] Comment: Specimen checked for clots. None detected. Slide Reviewed for PLT Clumps. None Seen. MPV 8.9 7.5 - 11.5 fL 09/06/2024 6:03 AM EDT [facility] Whole Blood 09/06/2024 4:30 AM EDT 09/06/2024 5:03 AM EDT us Azalea Hughes DO LAB BLOOD ORDERABLES Final Res ult [facility] [address] * (ABNORMAL) Protime-INR, AM (09/05/2024 7:24 AM EDT) Protime 27.8(H) 12.1 - 15.1 seconds 09/05/2024 8:18 AM EDT [facility] INR 2.5(H) 0.9 - 1.1 09/05/2024 8:18 AM EDT [facility] Comment: RECOMMENDED THERAPEUTIC RANGES USING INR : Stable oral anticoagulant therapy: 2.0 - 3.0 Mechanical prosthetic heart valve: 2.5 - 3.5 Recurrent acute myocardial infarction: 2.5 - 3.5 Plasma 09/05/2024 7:24 AM EDT 09/05/2024 7:38 AM EDT Kiet Ramirez MD LAB BLOOD ORDERABLES Denisse l Result [facility] [address] * (ABNORMAL) Hepatic Function Panel, AM (09/05/2024 7:24 AM EDT) Total Bilirubin 23.0(H) 0.0 - 1.5 mg/dL 09/05/2024 8:25 AM EDT [facility] Bilirubin, Direct 15.57(H) 0.00 - 0.40 mg/dL 09/05/2024 8:25 AM EDT [facility] AST 41(H) 13 - 39 U/L 09/05/2024 8:25 AM EDT [facility] ALT 28 7 - 52 U/L 09/05/2024 8:25 AM EDT [facility] Alkaline Phosphatase 89 36 - 125 U/L 09/05/2024 8:25 AM EDT [facility] Total Protein 4.3(L) 6.4 - 8.9 g/dL 09/05/2024 8:25 AM EDT [facility] Albumin 3.3(L) 3.5 - 5.7 g/dL 09/05/2024 8:25 AM EDT [facility] Bilirubin, Indirect 7.43(H) 0.00 - 1.10 mg/dL 09/05/2024 8:25 AM EDT [facility] Plasma 09/05/2024 7:24 AM EDT 09/05/2024 7:38 AM EDT Kiet Ramirez MD LAB BLOOD ORDERABLES Denisse l Result [facility] [address] [facility]. [address] * Phosphorus, AM (09/05/2024 7:24 AM EDT) Phosphorus 2.1 2.1 - 4.7 mg/dL 09/05/2024 8:25 AM EDT [facility] Plasma 09/05/2024 7:24 AM EDT 09/05/2024 7:38 AM EDT Kiet Ramirez MD LAB BLOOD ORDERABLES Denisse l Result Performing Organization Address City/[facility]/ZIP Co de Phone Number [facility] [address] * Magnesium, AM (09/05/2024 7:24 AM EDT) Magnesium 2.0 1.5 - 2.5 mg/dL 09/05/2024 8:25 AM EDT [facility] Plasma 09/05/2024 7:24 AM EDT 09/05/2024 7:38 AM EDT us Kiet Ramirez MD LAB BLOOD ORDERABLES Denisse l Result Performing Organization Address [facility] Co de Phone Number [facility] [address] * (ABNORMAL) Basic Metabolic panel, AM (09/05/2024 7:24 AM EDT) Sodium 134 133 - 146 mmol/L 09/05/2024 8:25 AM EDT [facility] Potassium 3.6 3.5 - 5.3 mmol/L 09/05/2024 8:25 AM EDT [facility] Chloride 107 98 - 110 mmol/L 09/05/2024 8:25 AM EDT [facility] CO2 19(L) 21 - 33 mmol/L 09/05/2024 8:25 AM EDT [facility] Anion Gap 8 3 - 16 mmol/L 09/05/2024 8:25 AM EDT [facility] BUN 42(H) 7 - 25 mg/dL 09/05/2024 8:25 AM EDT [facility] Creatinine 2.92(H) 0.60 - 1.30 mg/dL 09/05/2024 8:25 AM EDT [facility] Glucose 108(H) 70 - 100 mg/dL 09/05/2024 8:25 AM EDT [facility] Calcium 8.6 8.6 - 10.3 mg/dL 09/05/2024 8:25 AM EDT [facility] Osmolality, Calculated 289 278 - 305 mOsm/kg 09/05/2024 8:25 AM EDT [facility] EGFR 27 09/05/2024 8:25 AM EDT [facility] Comment:As of 2021, the estimated [...] MD LAB BLOOD ORDERABLES Denisse valle Result [facility] [address] [place] [address], [facility] * (ABNORMAL) CBC, AM (09/05/2024 7:24 AM EDT) WBC 4.6 3.8 - 10.8 10E3/uL 09/05/2024 8:04 AM EDT [facility] RBC 2.11(L) 4.20 - 5.80 10E6/uL 09/05/2024 8:04 AM EDT [facility] Hemoglobin 7.6(L) 13.2 - 17.1 g/dL 09/05/2024 8:04 AM EDT [facility] Hematocrit 21.1(L) 38.5 - 50.0 % 09/05/2024 8:04 AM EDT [facility] MCV 99.7 80.0 - 100.0 fL 09/05/2024 8:04 AM EDT [facility] MCH 35.9(H) 27.0 - 33.0 pg 09/05/2024 8:04 AM EDT [facility] MCHC 36.0 32.0 - 36.0 g/dL 09/05/2024 8:04 AM EDT [facility] RDW 22.8(H) 11.0 - 15.0 % 09/05/2024 8:04 AM EDT [facility] Platelets 37(L) 140 - 400 10E3/uL 09/05/2024 8:04 AM EDT [facility] Comment: CNV Specimen checked for clots. None detected. MPV 9.0 7.5 - 11.5 fL 09/05/2024 8:04 AM EDT [facility] Whole Blood 09/05/2024 7:24 AM EDT 09/05/2024 7:38 AM EDT us Kiet Ramirez MD LAB BLOOD ORDERABLES Denisse l Result [facility] [address] * ECG 12 lead (MUSE) (09/05/2024 4:57 AM EDT) 09/05/2024 4:57 AM EDT Narrative MUSE - 09/06/2024 7:31 AM EDT Ventricular Rate: 78 BPM Atrial Rate: 78 BPM P-R Interval: 196 ms QRS Duration: 100 ms QT: 362 ms QTc: 412 ms P [place]: 69 degrees R [place]: -23 degrees T [place]: 10 degrees Diagnosis Line: NORMAL SINUS RHYTHM ^ NONSPECIFIC T WAVE CHANGE ^ ABNORMAL ECG ^ ^ Confirmed by MD DELPHINE, FLOYD ([id number]) on 09/06/2024 7:31:28 AM us Kathie Sanchez [...] - 2.2 mmol/L 09/04/2024 5:27 PM EDT [facility] Plasma 09/04/2024 4:21 PM EDT 09/04/2024 4:30 PM EDT Kiet Ramirez MD LAB BLOOD ORDERABLES Denisse l Result Performing Organization Address City/[facility]/ZIP Co de Phone Number [facility] [address] [facility]. [address] * Magnesium (09/04/2024 4:21 PM EDT) Magnesium 2.4 1.5 - 2.5 mg/dL 09/04/2024 4:47 PM EDT [facility] Plasma 09/04/2024 4:21 PM EDT 09/04/2024 4:24 PM EDT Kiet Ramirez MD LAB BLOOD ORDERABLES Denisse l Result [facility] [address] * (ABNORMAL) Basic Metabolic Panel (09/04/2024 4:21 PM EDT) Sodium 134 133 - 146 mmol/L 09/04/2024 4:47 PM EDT [facility] Potassium 3.5 3.5 - 5.3 mmol/L 09/04/2024 4:47 PM EDT [facility] Chloride 104 98 - 110 mmol/L 09/04/2024 4:47 PM EDT [facility] CO2 20(L) 21 - 33 mmol/L 09/04/2024 4:47 PM EDT [facility] Anion Gap 10 3 - 16 mmol/L 09/04/2024 4:47 PM EDT [facility] BUN 43(H) 7 - 25 mg/dL 09/04/2024 4:47 PM EDT [facility] Creatinine 3.31(H) 0.60 - 1.30 mg/dL 09/04/2024 4:47 PM EDT [facility] Glucose 142(H) 70 - 100 mg/dL 09/04/2024 4:47 PM EDT [facility] Calcium 9.1 8.6 - 10.3 mg/dL 09/04/2024 4:47 PM EDT [facility] Osmolality, Calculated 291 278 - 305 mOsm/kg 09/04/2024 4:47 PM EDT [facility] EGFR 23 09/04/2024 4:47 PM EDT [facility] Comment:As of 2021, the estimated [...] MD LAB BLOOD ORDERABLES Denisse valle Result [facility] [address] [id number], [facility] * IR Paracentesis incl imaging guide [...] proceed with D/T paracentesis Shelia Logan CNP, Pre Billing Clinician Procedure and Findings: The procedure was performed [...] time ultrasound guidance, a 10 cm, 5-F Ewireless Centesis catheter was placed into the right [...] Will proceed withD/T paracentesis Shelia Logan CNP, Pre Billing Clinician Procedure and Findings: The procedure was performed [...] time ultrasound guidance, a 10 cm, 5-F Enlivex Therapeuticseh Centesis catheterwas placed into the right lower [...] Logan CNP at 09/08/2024 3:28 PM EDT Kiet Ramirez MD [facility] [place] ORDERABLES Final R esult * Fluid Creatinine (09/04/2024 11:01 AM EDT) Creat, Fluid 3.17 mg/dL 09/04/2024 6:15 PM EDT [facility] Comment:Reference range not established for this test. Abdominal Fluid ABDOMEN / Unknown 025 11:01 AM EDT 09/04/2024 5:25 PM EDT Narrative [facility] - 09/04/2024 6:15 PM EDT This assay has been modified from the drug coordinator's specifications and has been validated with performance characteristics determined by [facility] in accordance with federal regulations under the Clinical Laboratory Act Amendment of 1988. The modification has not been approved by the FDA which has determined that such approval is not necessary. The test is for clinical purposes and should not be regarded as investigational or for research use. Kiet Ramirez MD BODY FLUIDS AND STOOLS OR DERABLES Final Result Performing Organization Address [facility] de Phone Number [facility] [address] [place] [address] * Albumin, fluid (09/04/2024 11:01 AM EDT) Albumin, Fluid <1.5 g/dL 09/04/2024 6:15 PM EDT [facility] Comment:Reference range not established for this test. Abdominal Fluid ABDOMEN / Unknown 025 11:01 AM EDT 09/04/2024 5:25 PM EDT Narrative [facility] - 09/04/2024 6:15 PM EDT This assay has been modified from the drug coordinator's specifications and has been validated with performance characteristics determined by [facility] in accordance with federal regulations [...] OR DERABLES Final Result Performing Organization Address [facility] de Phone Number [facility] [address] [place] [address]. [address] * Protein, Body fluid (09/04/2024 11:01 AM EDT) Protein, Fluid <3.0 g/dL 09/04/2024 6:15 PM EDT [facility] Comment:Reference range not established for this test. Ascitic Fluid ABDOMEN / Unknown 11:01 AM EDT 09/04/2024 5:25 PM EDT Narrative [facility] - 09/04/2024 6:15 PM EDT This assay has been modified from the drug coordinator's specifications and has been validated with performance characteristics determined by [facility] in accordance with federal regulations [...] OR DERABLES Final Result Performing Organization Address City/[facility]/ZIP Co de Phone Number [facility] [address] [facility]. [address] * Body Fluid Culture plus Stain (09/04/2024 11:01 AM EDT) Gram Stain Result Cytospin Results: [facility] Gram Stain Result Polymorphonuclear Leukocytes Seen; [facility] Gram Stain Result No Organisms Seen; [facility] Culture Result No Growth After 5 Days [facility] Fluid ABDOMEN / Unknown 09/04/2024 11:01 AM EDT 09/04/2024 5:25 PM EDT Kiet Ramirez MD MICROBIOLOGY - GENERAL OR DERABLES Final Result Performing Organization Address [facility] Co de Phone Number [facility] [address] [place] [address]. [address] * (ABNORMAL) Body fluid cell count (09/04/2024 11:01 AM EDT) Color, Fluid Yellow(A) Colorless, Pale Yellow 09/04/2024 6:54 PM EDT [facility] Clarity, Fluid Hazy 09/04/2024 6:54 PM EDT [facility] Neutrophil %, Fluid 85 % 09/04/2024 6:54 PM EDT [facility] Lymphocytes %, Fluid 3 % 09/04/2024 6:54 PM EDT [facility] Macrophage %, Fluid 12 % 09/04/2024 6:54 PM EDT [facility] RBC, Fluid 840 /uL 09/04/2024 6:54 PM EDT [facility] Total Nucleated Cells, Fluid 2,276 /uL 09/04/2024 6:54 PM EDT [facility] Comment:Total Nucleated Cell s represent WBCs and other nucleated cells in the fluid such as lining cells. Ascitic Fluid ABDOMEN / Unknown 11:01 AM EDT 09/04/2024 5:25 PM EDT Kiet Ramirez MD BODY FLUIDS AND STOOLS OR DERABLES Final Result Performing Organization Address [facility] Co de Phone Number [facility] [address] [place] [address]. [address] * AFP Tumor Marker (09/04/2024 10:32 AM EDT) Pathologist [facility] AFP-Tumor Marker 1.9 0.0 - 9.0 ng/mL 09/04/2024 2:53 PM EDT [facility] Serum 09/04/2024 10:3 2 AM EDT 09/04/2024 2:35 PM EDT Narrative [facility] - 09/04/2024 2:53 PM EDT The testing method for AFP is a chemiluminescent immunoassay manufactured by [employer] Concentrations of AFP obtained by different assay methods or kits may vary and cannot be used interchangeably. AFP results cannot be interpreted as absolute evidence of the presence or absence of malignant disease. Kiet Ramirez MD LAB BLOOD ORDERABLES Denisse l Result Performing Organization Address [facility] de Phone Number [facility] [address] * Lipase (09/04/2024 5:22 AM EDT) Pathologist [facility] Lipase 40 4 - 82 U/L 09/04/2024 11:41 AM EDT [facility] Plasma 09/04/2024 5:22 AM EDT 09/04/2024 11:23 AM EDT Kiet Ramirez MD LAB BLOOD ORDERABLES Denisse l Result Performing Organization Address [facility] Co de Phone Number [facility] [address] [facility]. [address] * Calcium Free, Serum (09/04/2024 5:22 AM EDT) Free Calcium, Ser 4.93 4.40 - 5.40 mg/dL 09/04/2024 5:44 AM EDT [facility] Comment:Free calcium levels vary inversely with pH by approximately 5% for each 0.1 unit of pH change. Assay results have been normalized to pH = 7.40. Serum 09/04/2024 5:22 AM EDT 09/04/2024 5:27 AM EDT Narrative [facility] - 09/04/2024 5:44 AM EDT This test has been developed and its performance characteristics determined by [facility] which is certified under the [...] MD LAB BLOOD ORDERABLES Denisse l Result [facility] [address] * (ABNORMAL) Protime-INR, AM (09/04/2024 5:22 AM EDT) Protime 32.0(H) 12.1 - 15.1 seconds 09/04/2024 6:03 AM EDT [facility] INR 3.0(H) 0.9 - 1.1 09/04/2024 6:03 AM EDT [facility] Comment: RECOMMENDED THERAPEUTIC RANGES USING INR : Stable oral anticoagulant therapy: 2.0 - 3.0 Mechanical prosthetic heart valve: 2.5 - 3.5 Recurrent acute myocardial infarction: 2.5 - 3.5 Plasma 09/04/2024 5:22 AM EDT 09/04/2024 5:38 AM EDT Kiet Ramirez MD LAB BLOOD ORDERABLES Ednisse l Result Performing Organization Address City/[facility]/ZIP Co de Phone Number [facility] [address] [facility]. [address] * Phosphorus, AM (09/04/2024 5:22 AM EDT) Phosphorus 2.2 2.1 - 4.7 mg/dL 09/04/2024 6:39 AM EDT [facility] Plasma 09/04/2024 5:22 AM EDT 09/04/2024 5:27 AM EDT Kiet Ramirez MD LAB BLOOD ORDERABLES Denisse l Result Performing Organization Address [facility] Co de Phone Number [facility] [address] [facility]. [address] * Magnesium, AM (09/04/2024 5:22 AM EDT) Magnesium 2.4 1.5 - 2.5 mg/dL 09/04/2024 6:39 AM EDT [facility] Plasma 09/04/2024 5:22 AM EDT 09/04/2024 5:27 AM EDT Kiet Ramirez MD LAB BLOOD ORDERABLES Denisse l Result Performing Organization Address City/[facility] Co de Phone Number [facility] [address] [facility]. [address] * (ABNORMAL) Hepatic Function Panel, AM (09/04/2024 5:22 AM EDT) Total Bilirubin 25.5(H) 0.0 - 1.5 mg/dL 09/04/2024 6:39 AM EDT [facility] AST 43(H) 13 - 39 U/L 09/04/2024 6:39 AM EDT [facility] ALT 30 7 - 52 U/L 09/04/2024 6:39 AM EDT [facility] Alkaline Phosphatase 75 36 - 125 U/L 09/04/2024 6:39 AM EDT [facility] Total Protein 4.6(L) 6.4 - 8.9 g/dL 09/04/2024 6:39 AM EDT [facility] Albumin 3.2(L) 3.5 - 5.7 g/dL 09/04/2024 6:39 AM EDT [facility] Bilirubin, Direct 17.39(H) 0.00 - 0.40 mg/dL 09/04/2024 8:24 AM EDT [facility] Bilirubin, Indirect 8.11(H) 0.00 - 1.10 mg/dL 09/04/2024 8:24 AM EDT [facility] Plasma 09/04/2024 5:22 AM EDT 09/04/2024 5:27 AM EDT us Kiet Ramirez MD LAB BLOOD ORDERABLES Denisse valle Result [facility] [address] [place] [address], [facility] * (ABNORMAL) Basic Metabolic panel, AM (09/04/2024 5:22 AM EDT) Sodium 132(L) 133 - 146 mmol/L 09/04/2024 5:56 AM EDT [facility] Potassium 3.7 3.5 - 5.3 mmol/L 09/04/2024 5:56 AM EDT [facility] Chloride 103 98 - 110 mmol/L 09/04/2024 5:56 AM EDT [facility] CO2 18(L) 21 - 33 mmol/L 09/04/2024 5:56 AM EDT [facility] Anion Gap 11 3 - 16 mmol/L 09/04/2024 5:56 AM EDT [facility] BUN 41(H) 7 - 25 mg/dL 09/04/2024 5:56 AM EDT [facility] Creatinine 3.21(H) 0.60 - 1.30 mg/dL 09/04/2024 5:56 AM EDT [facility] Glucose 162(H) 70 - 100 mg/dL 09/04/2024 5:56 AM EDT [facility] Calcium 8.5(L) 8.6 - 10.3 mg/dL 09/04/2024 5:56 AM EDT [facility] Osmolality, Calculated 288 278 - 305 mOsm/kg 09/04/2024 5:56 AM EDT [facility] EGFR 24 09/04/2024 5:56 AM EDT [facility] Comment:As of 2021, the estimated [...] MD LAB BLOOD ORDERABLES Denisse valle Result [facility] [address] [place] [address], [facility] * (ABNORMAL) CBC, AM (09/04/2024 5:22 AM EDT) WBC 9.6 3.8 - 10.8 10E3/uL 09/04/2024 5:50 AM EDT [facility] RBC 2.35(L) 4.20 - 5.80 10E6/uL 09/04/2024 5:50 AM EDT [facility] Hemoglobin 8.5(L) 13.2 - 17.1 g/dL 09/04/2024 5:50 AM EDT [facility] Hematocrit 23.1(L) 38.5 - 50.0 % 09/04/2024 5:50 AM EDT [facility] MCV 98.6 80.0 - 100.0 fL 09/04/2024 5:50 AM EDT [facility] MCH 36.3(H) 27.0 - 33.0 pg 09/04/2024 5:50 AM EDT [facility] MCHC 36.8(H) 32.0 - 36.0 g/dL 09/04/2024 5:50 AM EDT [facility] RDW 23.1(H) 11.0 - 15.0 % 09/04/2024 5:50 AM EDT [facility] Platelets 41(L) 140 - 400 10E3/uL 09/04/2024 5:50 AM EDT [facility] Comment: CNV Specimen checked for clots. None detected. MPV 9.5 7.5 - 11.5 fL 09/04/2024 5:50 AM EDT [facility] Whole Blood 09/04/2024 5:22 AM EDT 09/04/2024 5:38 AM EDT Kiet Ramirez MD LAB BLOOD ORDERABLES Denisse l Result Performing Organization Address City/[facility]/ZIP Co de Phone Number [facility] [address] * Magnesium (09/04/2024 2:20 AM EDT) Magnesium 2.5 1.5 - 2.5 mg/dL 09/04/2024 2:54 AM EDT [facility] Plasma 09/04/2024 2:20 AM EDT 09/04/2024 2:39 AM EDT Kiet Ramirez MD LAB BLOOD ORDERABLES Denisse l Result [facility] [address] * (ABNORMAL) Basic Metabolic Panel (09/04/2024 2:20 AM EDT) Sodium 133 133 - 146 mmol/L 09/04/2024 2:54 AM EDT [facility] Potassium 3.8 3.5 - 5.3 mmol/L 09/04/2024 2:54 AM EDT [facility] Chloride 103 98 - 110 mmol/L 09/04/2024 2:54 AM EDT [facility] CO2 18(L) 21 - 33 mmol/L 09/04/2024 2:54 AM EDT [facility] Anion Gap 12 3 - 16 mmol/L 09/04/2024 2:54 AM EDT [facility] BUN 41(H) 7 - 25 mg/dL 09/04/2024 2:54 AM EDT [facility] Creatinine 3.36(H) 0.60 - 1.30 mg/dL 09/04/2024 2:54 AM EDT [facility] Glucose 145(H) 70 - 100 mg/dL 09/04/2024 2:54 AM EDT [facility] Calcium 9.0 8.6 - 10.3 mg/dL 09/04/2024 2:54 AM EDT [facility] Osmolality, Calculated 289 278 - 305 mOsm/kg 09/04/2024 2:54 AM EDT [facility] EGFR 23 09/04/2024 2:54 AM EDT [facility] Comment:As of 2021, the estimated [...] MD LAB BLOOD ORDERABLES Denisse l Result [facility] [address] * Magnesium (09/03/2024 9:50 PM EDT) Magnesium 2.5 1.5 - 2.5 mg/dL 09/03/2024 10:14 PM EDT [facility] Plasma 09/03/2024 9:50 PM EDT 09/03/2024 9:56 PM EDT us Kiet Ramirez MD LAB BLOOD ORDERABLES Denisse l Result [facility] [address] * (ABNORMAL) Basic Metabolic Panel (09/03/2024 9:50 PM EDT) Sodium 131(L) 133 - 146 mmol/L 09/03/2024 10:14 PM EDT [facility] Potassium 4.2 3.5 - 5.3 mmol/L 09/03/2024 10:14 PM EDT [facility] Chloride 102 98 - 110 mmol/L 09/03/2024 10:14 PM EDT [facility] CO2 17(L) 21 - 33 mmol/L 09/03/2024 10:14 PM EDT [facility] Anion Gap 12 3 - 16 mmol/L 09/03/2024 10:14 PM EDT [facility] BUN 41(H) 7 - 25 mg/dL 09/03/2024 10:14 PM EDT [facility] Creatinine 3.44(H) 0.60 - 1.30 mg/dL 09/03/2024 10:14 PM EDT [facility] Glucose 194(H) 70 - 100 mg/dL 09/03/2024 10:14 PM EDT [facility] Calcium 8.5(L) 8.6 - 10.3 mg/dL 09/03/2024 10:14 PM EDT [facility] Osmolality, Calculated 287 278 - 305 mOsm/kg 09/03/2024 10:14 PM EDT [facility] EGFR 22 09/03/2024 10:14 PM EDT [facility] Comment:As of 2021, the estimated [...] ORDERABLES Denisse l Result Performing Organization Address [facility]/ZIP Co de Phone Number [facility] [address] * (ABNORMAL) Magnesium (09/03/2024 6:16 PM EDT) Magnesium 2.6(H) 1.5 - 2.5 mg/dL 09/03/2024 6:47 PM EDT [facility] Plasma 09/03/2024 6:16 PM EDT 09/03/2024 6:27 PM EDT Kiet Ramirez MD LAB BLOOD ORDERABLES Denisse l Result [facility] [address] * (ABNORMAL) Basic Metabolic Panel (09/03/2024 6:16 PM EDT) Sodium 132(L) 133 - 146 mmol/L 09/03/2024 6:47 PM EDT [facility] Potassium 4.1 3.5 - 5.3 mmol/L 09/03/2024 6:47 PM EDT [facility] Chloride 100 98 - 110 mmol/L 09/03/2024 6:47 PM EDT [facility] CO2 17(L) 21 - 33 mmol/L 09/03/2024 6:47 PM EDT [facility] Anion Gap 15 3 - 16 mmol/L 09/03/2024 6:47 PM EDT [facility] BUN 40(H) 7 - 25 mg/dL 09/03/2024 6:47 PM EDT [facility] Creatinine 3.44(H) 0.60 - 1.30 mg/dL 09/03/2024 6:47 PM EDT [facility] Glucose 115(H) 70 - 100 mg/dL 09/03/2024 6:47 PM EDT [facility] Calcium 9.0 8.6 - 10.3 mg/dL 09/03/2024 6:47 PM EDT [facility] Osmolality, Calculated 285 278 - 305 mOsm/kg 09/03/2024 6:47 PM EDT [facility] EGFR 22 09/03/2024 6:47 PM EDT [facility] Comment:As of 2021, the estimated [...] MD LAB BLOOD ORDERABLES Denisse l Result [facility] [address] * (ABNORMAL) Venous Blood Gas, Line/Syringe, STAT (09/03/2024 5:26 PM EDT) PH-Line Draw 7.32 7.32 - 7.42 09/03/2024 5:40 PM EDT [facility] PCO2-Line Draw 33(L) 41 - 51 mm Hg 09/03/2024 5:40 PM EDT [facility] PO2-Line Draw 32 25 - 40 mm Hg 09/03/2024 5:40 PM EDT [facility] HCO3-Line Draw 18(L) 24 - 28 mmol/L 09/03/2024 5:40 PM EDT [facility] CO2 Content-Line Draw 18(L) 25 - 29 mmol/L 09/03/2024 5:40 PM EDT [facility] Base Excess-Line Draw -8.2(L) -2.0 - 3.0 mmol/L 09/03/2024 5:40 PM EDT [facility] %HBO2-Line Draw 53.4 40.0 - 70.0 % 09/03/2024 5:40 PM EDT [facility] Carboxyhgb-Ludivina e Draw 1.4 % 09/03/2024 5:40 PM EDT [facility] Comment: CARBOXYHEMOGLOBIN (CO) REFERENCE RANGES: Non-Smokers: <2 % Smokers: <8 % TOXIC: >20 % Methemoglobin- Line Draw 0.7 0.0 - 1.5 % 09/03/2024 5:40 PM EDT [facility] Reduced Hemoglobin-Ludivina e Draw 44.5(H) 0.0 - 5.0 % 09/03/2024 5:40 PM EDT [facility] Venous, Line Draw 09/03/2024 5:26 PM EDT 09/03/2024 5:38 PM EDT Kiet Ramirez MD LAB BLOOD ORDERABLES Denisse valle Result [facility] [address] * (ABNORMAL) CBC (09/03/2024 5:26 PM EDT) WBC 9.9 3.8 - 10.8 10E3/uL 09/03/2024 6:28 PM EDT [facility] RBC 2.35(L) 4.20 - 5.80 10E6/uL 09/03/2024 6:28 PM EDT [facility] Hemoglobin 8.4(L) 13.2 - 17.1 g/dL 09/03/2024 6:28 PM EDT [facility] Hematocrit 23.1(L) 38.5 - 50.0 % 09/03/2024 6:28 PM EDT [facility] MCV 98.3 80.0 - 100.0 fL 09/03/2024 6:28 PM EDT [facility] MCH 35.5(H) 27.0 - 33.0 pg 09/03/2024 6:28 PM EDT [facility] MCHC 36.2(H) 32.0 - 36.0 g/dL 09/03/2024 6:28 PM EDT [facility] RDW 22.8(H) 11.0 - 15.0 % 09/03/2024 6:28 PM EDT [facility] Platelets 42(L) 140 - 400 10E3/uL 09/03/2024 6:28 PM EDT [facility] Comment: _Platelets Appear Decreased Slide Reviewed for PLT Clumps. None Seen. Specimen checked for clots. None detected. Platelet Estimate Decreased 09/03/2024 6:28 PM EDT [facility] MPV 8.9 7.5 - 11.5 fL 09/03/2024 6:28 PM EDT [facility] Whole Blood 09/03/2024 5:26 PM EDT 09/03/2024 5:47 PM EDT Narrative [facility] - 09/03/2024 6:28 PM EDT Peripheral blood smear was scanned per review criteria approved by the laboratory medical doctor md. Kiet Ramirez MD LAB BLOOD ORDERABLES Denisse valle Result [facility] [address] [facility]. [address] * MRSA/Staph aureus DNA ??? Diagnostic testing for pneumonia (09/03/2024 3:21 PM EDT) MRSA, PCR Negative Negative 09/03/2024 7:48 PM EDT [facility] Staph Aureus, PCR Negative Negative 09/03/2024 7:48 PM EDT [facility] Comment:Test method is a FDA approved amplified DNA assay. Nares Swab BOTH ANTERIOR NARES / Unknown 09/03/2024 3:21 PM EDT 09/03/2024 4:25 PM EDT Narrative [facility] - 09/03/2024 7:48 PM EDT Diagnosis of MRSA Pneumonia->Yes - Place [id number] (this order) us Kiet Ramirez MD MICROBIOLOGY - GENERAL OR DERABLES Final Result [facility] [address] [place] [address], [facility] * (ABNORMAL) Urine Drug Screen without Confirmation, STAT (09/03/2024 3:21 PM EDT) Amphetamine, 500 ng/mL Cutoff Negative Negative 09/03/2024 4:17 PM EDT [facility] Barbiturates UR, 300 ng/mL Cutoff Negative Negative 09/03/2024 4:17 PM EDT [facility] Buprenorphine, 5 ng/mL Cutoff Negative Negative 09/03/2024 4:17 PM EDT [facility] Benzodiazepines UR, 300 ng/mL Cutoff Negative Negative 09/03/2024 4:17 PM EDT [facility] Cocaine UR, 300 ng/mL Cutoff Negative Negative 09/03/2024 4:17 PM EDT [facility] Methadone, UR, 300 ng/mL Cutoff Negative Negative 09/03/2024 4:17 PM EDT [facility] Opiates UR, 300 ng/mL Cutoff Presumptive Positive(A) Negative 09/03/2024 4:17 PM EDT [facility] Oxycodone, 100 ng/mL Cutoff Negative Negative 09/03/2024 4:17 PM EDT [facility] Tricyclic Antidepressants, 300 ng/mL Cutoff Negative Negative 09/03/2024 4:17 PM EDT [facility] Comment:This test has been d eveloped and its performance characteristics determined by [facility] which is certified under the [...] Cutoff Negative Negative 09/03/2024 4:17 PM EDT [facility] Comment:This is a screening method only and may be associated with false positive and/or false negative results. Results are not definitive without additional confirmatory testing by mass spectrometry. Fentanyl, 2 ng/mL Cutoff Negative Negative 09/03/2024 4:17 PM EDT [facility] Comment:This test has been d eveloped and its performance characteristics determined by [facility] which is certified under the [...] Ramirez MD URINE ORDERABLES Final Re sult [facility] [address] * (ABNORMAL) Venous Blood Gas, Line/Syringe (09/03/2024 3:21 PM EDT) PH-Line Draw 7.24(L) 7.32 - 7.42 09/03/2024 3:30 PM EDT [facility] PCO2-Line Draw 37(L) 41 - 51 mm Hg 09/03/2024 3:30 PM EDT [facility] PO2-Line Draw 39 25 - 40 mm Hg 09/03/2024 3:30 PM EDT [facility] HCO3-Line Draw 16(L) 24 - 28 mmol/L 09/03/2024 3:30 PM EDT [facility] CO2 Content-Line Draw 17(L) 25 - 29 mmol/L 09/03/2024 3:30 PM EDT [facility] Base Excess-Line Draw -10.6(L) -2.0 - 3.0 mmol/L 09/03/2024 3:30 PM EDT [facility] %HBO2-Line Draw 62.6 40.0 - 70.0 % 09/03/2024 3:30 PM EDT [facility] Carboxyhgb-Ludivina e Draw 1.5 % 09/03/2024 3:30 PM EDT [facility] Comment: CARBOXYHEMOGLOBIN (CO) REFERENCE RANGES: Non-Smokers: <2 % Smokers: <8 % TOXIC: >20 % Methemoglobin- Line Draw 1.0 0.0 - 1.5 % 09/03/2024 3:30 PM EDT [facility] Reduced Hemoglobin-Ludivina e Draw 34.9(H) 0.0 - 5.0 % 09/03/2024 3:30 PM EDT [facility] Venous, Line Draw 09/03/2024 3:21 PM EDT 09/03/2024 3:27 PM EDT us Kiet Ramirez MD LAB BLOOD ORDERABLES Denisse l Result Performing Organization Address [facility] Co de Phone Number [facility] [address] * Urea Nitrogen, Urine (09/03/2024 3:21 PM EDT) Urea Nitrogen, Ur 350 mg/dL 09/03/2024 4:12 PM EDT [facility] Comment:Reference range not established for this test. Urine 09/03/2024 3:21 PM EDT 09/03/2024 3:30 PM EDT Kiet Ramirez MD URINE ORDERABLES Final Re sult Performing Organization Address [facility] Co de Phone Number [facility] [address] * Sodium, Urine, Random (09/03/2024 3:21 PM EDT) Sodium, Ur <10 mmol/L 09/03/2024 4:19 PM EDT [facility] Comment:Reference range not established for this test. Urine 09/03/2024 3:21 PM EDT 09/03/2024 3:30 PM EDT us Kiet Ramirez MD URINE ORDERABLES Final Re sult Performing Organization Address City/[facility]/ZIP Co de Phone Number [facility] [address] [facility]. [address] * Potassium, Urine, Random (09/03/2024 3:21 PM EDT) Potassium Urine Random 23.0 mmol/L 09/03/2024 4:19 PM EDT [facility] Comment:Reference range not established for this test. Urine 09/03/2024 3:21 PM EDT 09/03/2024 3:30 PM EDT us Kiet Ramirez MD URINE ORDERABLES Final Re sult Performing Organization Address [facility] Co de Phone Number [facility] [address] [facility]. [address] * Creatinine, Urine, Random (09/03/2024 3:21 PM EDT) Creatinine, Urine 127.80 mg/dL 09/03/2024 4:19 PM EDT [facility] Comment:Reference range not established for this test. Urine 09/03/2024 3:21 PM EDT 09/03/2024 3:30 PM EDT Kiet Ramirez MD URINE ORDERABLES Final Re sult Performing Organization Address [facility] Co de Phone Number [facility] [address] [facility]. [address] * Chloride, Urine, Random (09/03/2024 3:21 PM EDT) Chloride, Ur <15 mmol/L 09/03/2024 4:19 PM EDT [facility] Comment:Reference range not established for this test. Urine 09/03/2024 3:21 PM EDT 09/03/2024 3:30 PM EDT Kiet Ramirez MD URINE ORDERABLES Final Re sult Performing Organization Address [facility]/ZIP Co de Phone Number [facility] [address] [place] [address] * Magnesium (09/03/2024 3:21 PM EDT) [facility] Magnesium 2.1 1.5 - 2.5 mg/dL 09/03/2024 3:50 PM EDT [facility] Plasma 09/03/2024 3:21 PM EDT 09/03/2024 3:27 PM EDT Kiet Ramirez MD LAB BLOOD ORDERABLES Denisse l Result Performing Organization Address [facility] Co de Phone Number [facility] [address] * (ABNORMAL) Basic Metabolic Panel (09/03/2024 3:21 PM EDT) [facility] Sodium 133 133 - 146 mmol/L 09/03/2024 3:50 PM EDT [facility] Potassium 2.9(LL) 3.5 - 5.3 mmol/L 09/03/2024 3:50 PM EDT [facility] Comment:Critical Result K:2. 9 Called to and read back by: LENA DON RN at: 09/03/2024 15:50:10 by:CAMILA Chloride 95(L) 98 - 110 mmol/L 09/03/2024 3:50 PM EDT [facility] CO2 15(L) 21 - 33 mmol/L 09/03/2024 3:50 PM EDT [facility] Anion Gap 23(H) 3 - 16 mmol/L 09/03/2024 3:50 PM EDT [facility] BUN 36(H) 7 - 25 mg/dL 09/03/2024 3:50 PM EDT [facility] Creatinine 3.16(H) 0.60 - 1.30 mg/dL 09/03/2024 3:50 PM EDT [facility] Glucose 91 70 - 100 mg/dL 09/03/2024 3:50 PM EDT [facility] Calcium 7.8(L) 8.6 - 10.3 mg/dL 09/03/2024 3:50 PM EDT [facility] Osmolality, Calculated 284 278 - 305 mOsm/kg 09/03/2024 3:50 PM EDT [facility] EGFR 24 09/03/2024 3:50 PM EDT [facility] Comment:As of 2021, the estimated [...] MD LAB BLOOD ORDERABLES Denisse valle Result [facility] [address] [place] [address], [facility] * Ethanol, Serum (09/03/2024 1:43 PM EDT) Ethanol <10 0 - 10 mg/dL 09/03/2024 3:08 PM EDT [facility] Serum 09/03/2024 1:43 PM EDT 09/03/2024 1:47 PM EDT Kiet Ramirez MD LAB BLOOD ORDERABLES Denisse l Result Performing Organization Address [facility] Co de Phone Number [facility] [address] [facility]. [address] * T4, Free (09/03/2024 1:43 PM EDT) Pathologist [facility] Free T4 0.74 0.61 - 1.76 ng/dL 09/03/2024 6:34 PM EDT [facility] Comment:Biotin megadosing (c onsumption >300 mcg/day) may falsely elevate free T4. When indicated, discontinue megadosing for 1 week and repeat testing. Serum 09/03/2024 1:43 PM EDT 09/03/2024 2:17 PM EDT Kiet Ramirez MD LAB BLOOD ORDERABLES Denisse l Result Performing Organization Address [facility] Co de Phone Number [facility] [address] [facility] * TSH (09/03/2024 1:43 PM EDT) [facility] TSH 0.92 0.45 - 4.12 uIU/mL 09/03/2024 6:30 PM EDT [facility] Serum 09/03/2024 1:43 PM EDT 09/03/2024 2:17 PM EDT Kiet Ramirez MD LAB BLOOD ORDERABLES Denisse l Result Performing Organization Address City/[facility] Co de Phone Number [facility] [address] [facility] * Hepatitis B surface antigen (09/03/2024 1:43 PM EDT) Pathologist [facility] Hep B Surface Ag Nonreactive Nonreactive 09/03/2024 3:54 PM EDT [facility] Comment:Health Department no tified in accordance with reportable infectious disease guidelines. Serum 09/03/2024 1:43 PM EDT 09/03/2024 2:17 PM EDT [facility] - 09/03/2024 3:54 PM EDT The result will be immediately released to [facility] when marked final. Do you believe the result release to [facility] should be delayed based on either the Preventing Harm or Privacy exceptions of the Cures Rule?->No Specimen is considered negative for HBsAg. Kiet Ramirez MD LAB BLOOD ORDERABLES Denisse l Result Performing Organization Address [facility] Co de Phone Number [facility] [address] [facility]. [address] * Hepatitis B Core IgM (09/03/2024 1:43 PM EDT) Hep B Core IgM Nonreactive Nonreactive 09/03/2024 3:50 PM EDT [facility] Serum 09/03/2024 1:43 PM EDT 09/03/2024 2:17 PM EDT [facility] - 09/03/2024 3:50 PM EDT The result will be immediately released to [facility] when marked final. Do you believe the result release to [facility] should be delayed based on either the Preventing Harm or Privacy exceptions of the Cures Rule?->No IgM anti-HBc not detected. Does not exclude the possibility of exposure to or infection with HBV. Kiet Ramirez MD LAB BLOOD ORDERABLES Denisse l Result Performing Organization Address [facility] Co de Phone Number [facility] [address] [facility] * Hepatitis A IgM (09/03/2024 1:43 PM EDT) Hep A IgM Nonreactive Nonreactive 09/03/2024 3:49 PM EDT [facility] Serum 09/03/2024 1:43 PM EDT 09/03/2024 2:17 PM EDT Narrative [facility] - 09/03/2024 3:49 PM EDT The result will be immediately released to [facility] when marked final. Do you believe the result release to [facility] should be delayed based on either the Preventing Harm or Privacy exceptions of the Cures Rule?->No IgM anti-HAV not detected. Does not exclude the possibility of exposure to or infection with HAV. Levels of IgM anti-HAV may be below the cut-off in early infection. Kiet Ramirez MD LAB BLOOD ORDERABLES Denisse l Result Performing Organization Address City/[facility]/ZIP Co de Phone Number [facility] [address] [facility] * Hepatitis C Antibody (09/03/2024 1:43 PM EDT) HCV Ab Nonreactive Nonreactive 09/03/2024 3:58 PM EDT [facility] Comment:Health Department no tified in accordance with reportable infectious disease guidelines. Serum 09/03/2024 1:43 PM EDT 09/03/2024 2:17 PM EDT Narrative [facility] - 09/03/2024 3:58 PM EDT The result will be immediately released to [facility] when marked final. Do you believe the result release to [facility] should be delayed based on either the Preventing Harm or Privacy exceptions of the Cures Rule?->No Antibodies to HCV not detected; does not exclude the possibility of exposure to HCV. Kiet Ramirez MD LAB BLOOD ORDERABLES Denisse l Result [facility] [address] [facility] * Lactic Acid (09/03/2024 1:43 PM EDT) Lactate 1.7 0.5 - 2.2 mmol/L 09/03/2024 2:25 PM EDT [facility] Plasma 09/03/2024 1:43 PM EDT 09/03/2024 1:52 PM EDT Kiet Ramirez MD LAB BLOOD ORDERABLES Denisse l Result [facility] [address] * Magnesium (09/03/2024 1:43 PM EDT) Magnesium 2.2 1.5 - 2.5 mg/dL 09/03/2024 2:06 PM EDT [facility] Plasma 09/03/2024 1:43 PM EDT 09/03/2024 1:47 PM EDT Kiet Ramirez MD LAB BLOOD ORDERABLES Denisse l Result Performing Organization Address [facility] Co de Phone Number [facility] [address] * (ABNORMAL) Basic Metabolic Panel (09/03/2024 1:43 PM EDT) Sodium 131(L) 133 - 146 mmol/L 09/03/2024 2:06 PM EDT [facility] Potassium 3.2(L) 3.5 - 5.3 mmol/L 09/03/2024 2:06 PM EDT [facility] Chloride 100 98 - 110 mmol/L 09/03/2024 2:06 PM EDT [facility] CO2 16(L) 21 - 33 mmol/L 09/03/2024 2:06 PM EDT [facility] Anion Gap 15 3 - 16 mmol/L 09/03/2024 2:06 PM EDT [facility] BUN 40(H) 7 - 25 mg/dL 09/03/2024 2:06 PM EDT [facility] Creatinine 3.52(H) 0.60 - 1.30 mg/dL 09/03/2024 2:06 PM EDT [facility] Glucose 86 70 - 100 mg/dL 09/03/2024 2:06 PM EDT [facility] Calcium 8.5(L) 8.6 - 10.3 mg/dL 09/03/2024 2:06 PM EDT [facility] Osmolality, Calculated 281 278 - 305 mOsm/kg 09/03/2024 2:06 PM EDT [facility] EGFR 21 09/03/2024 2:06 PM EDT [facility] Comment:As of 2021, the estimated [...] MD LAB BLOOD ORDERABLES Denisse valle Result [facility] [address] * X-ray Portable Chest (09/03/2024 1:19 PM [...] - 4.7 mg/dL 09/03/2024 11:31 AM EDT [facility] Plasma 09/03/2024 10:4 9 AM EDT 09/03/2024 11:02 AM EDT Kiet Ramirez MD LAB BLOOD ORDERABLES Denisse l Result Performing Organization Address City/[facility] Co de Phone Number [facility] [address] [facility] * Magnesium (09/03/2024 10:49 AM EDT) Magnesium 1.8 1.5 - 2.5 mg/dL 09/03/2024 11:31 AM EDT [facility] Plasma 09/03/2024 10:4 9 AM EDT 09/03/2024 11:02 AM EDT Kiet Ramirez MD LAB BLOOD ORDERABLES Denisse l Result Performing Organization Address City/[facility] Co de Phone Number [facility] [address] [place] [address] * (ABNORMAL) Basic metabolic panel (09/03/2024 10:49 [...] - 33 mmol/L 09/03/2024 11:31 AM EDT [facility] Anion Gap 13 3 - 16 mmol/L 09/03/2024 11:31 AM EDT [facility] BUN 39(H) 7 - 25 mg/dL 09/03/2024 11:31 AM EDT [facility] Creatinine 3.26(H) 0.60 - 1.30 mg/dL 09/03/2024 11:31 AM EDT [facility] Glucose 84 70 - 100 mg/dL 09/03/2024 11:31 AM EDT [facility] Calcium 8.6 8.6 - 10.3 mg/dL 09/03/2024 11:31 AM EDT [facility] Osmolality, Calculated 285 278 - 305 mOsm/kg 09/03/2024 11:31 AM EDT [facility] EGFR 23 09/03/2024 11:31 AM EDT [facility] Comment:As of 2021, [...] MD LAB BLOOD ORDERABLES Denisse tori Result [facility] [address] [place] [address], [facility] * US Abdomen Complete (09/03/2024 10:30 [...] EXAM: US ABDOMEN COMPLETE EXAM: US DUPLEX [id number] COMPLETE INDICATION: Evaluate for cholecystitis COMPARISON: 09/03/2024 [...] EXAM: US ABDOMEN COMPLETE EXAM: US DUPLEX [id number] COMPLETE INDICATION: Evaluate for cholecystitis COMPARISON: 09/03/2024 [...] US ORDERABLES Final Result * US Duplex Lbj-Uvf-Txhtuod Comp (09/03/2024 10:30 AM EDT) Anatomical Region [...] EXAM: US ABDOMEN COMPLETE EXAM: US DUPLEX [id number] COMPLETE INDICATION: Evaluate for cholecystitis COMPARISON: 09/03/2024 [...] EXAM: US ABDOMEN COMPLETE EXAM: US DUPLEX [id number] COMPLETE INDICATION: Evaluate for cholecystitis COMPARISON: 09/03/2024 [...] - 3 /HPF 09/03/2024 11:51 AM EDT [facility] WBC, UA 1 0 - 5 /HPF 09/03/2024 11:51 AM EDT [facility] Squam Epithel, UA <1 0 - 5 /HPF 09/03/2024 11:51 AM EDT [facility] Bacteria, UA Occasional (A) None Seen /HPF 09/03/2024 11:51 AM EDT [facility] Mucus, UA Present(A) None Seen /HPF 09/03/2024 11:51 AM EDT [facility] Urine 09/03/2024 10:2 8 AM EDT 09/03/2024 11:24 AM EDT us Kiet Ramirez MD URINE ORDERABLES Final Re sult [facility] [address] [place] [address], [facility] * (ABNORMAL) Urinalysis-Macroscopic w/Rfx to Microsco (09/03/2024 10:28 AM EDT) Color, UA Yellow Yellow,Straw 09/03/2024 11:51 AM EDT [facility] Clarity, UA Cloudy(A) Clear 09/03/2024 11:51 AM EDT [facility] Specific [place], UA >1.035(H) 1.005 - 1.035 09/03/2024 11:51 AM EDT [facility] pH, UA 6.5 5.0 - 8.0 09/03/2024 11:51 AM EDT [facility] Protein, UA Trace(A) Negative mg/dL 09/03/2024 11:51 AM EDT [facility] Glucose, UA Negative Negative mg/dL 09/03/2024 11:51 AM EDT [facility] Ketones, UA Negative Negative mg/dL 09/03/2024 11:51 AM EDT [facility] Bilirubin, UA Small(A) Negative 09/03/2024 11:51 AM EDT [facility] Blood, UA Negative Negative 09/03/2024 11:51 AM EDT [facility] Nitrite, UA Negative Negative 09/03/2024 11:51 AM EDT [facility] Urobilinogen, UA <2.0 0.2 - 1.9 mg/dL 09/03/2024 11:51 AM EDT [facility] Leukocyte Esterase, UA Negative Negative 09/03/2024 11:51 AM EDT [facility] Urine 09/03/2024 10:2 8 AM EDT 09/03/2024 10:55 AM EDT us Kiet Ramirez MD URINE ORDERABLES Final Re sult Performing Organization Address City/[facility]/ZIP Co de Phone Number [facility] [address] * #1 Blood culture-Peripheral site 1 (09/03/2024 8:10 AM EDT) Culture Result No Growth After 5 Days [facility] Blood BLOOD SPECIMEN / Unknown 09/03/2024 8:10 AM EDT 09/03/2024 8:57 AM EDT Narrative [facility] - 09/08/2024 9:00 AM EDT One aerobic bottle was received Suboptimal volume of blood received. Interpret results with caution. us Jarrod Alas MD MICROBIOLOGY - GENERAL ORDERAB LES Final Result [facility] [address] * #2 Blood culture-Peripheral site 2 (09/03/2024 7:55 AM EDT) Culture Result No Growth After 5 Days [facility] Blood BLOOD SPECIMEN / Unknown 09/03/2024 7:55 AM EDT 09/03/2024 8:40 AM EDT Narrative [facility] - 09/08/2024 8:45 AM EDT Suboptimal volume of blood received. Interpret results with caution. Jarrod Alas MD MICROBIOLOGY - GENERAL ORDERAB LES Final Result Performing Organization Address [facility]/ZIP Co de Phone Number [facility] [address] [facility]. [address] * Lactic acid, venous (09/03/2024 7:55 AM EDT) Lactate, Shakeel 1.8 0.5 - 2.2 mmol/L 09/03/2024 8:02 AM EDT [facility] Whole Blood VENOUS STRUCTURE / Unknown 09/03/2024 7:55 AM EDT 09/03/2024 7:59 AM EDT Jarrod Alas MD LAB BLOOD ORDERABLES Final Res ult Performing Organization Address City/[facility]/ZIP Co de Phone Number [facility] [address] [facility]. [address] * High Sensitivity Troponin (60min) (09/03/2024 7:18 AM EDT) High Sensitivity Troponin 14 0 - 20 ng/L 09/03/2024 7:49 AM EDT [facility] Serum 09/03/2024 7:18 AM EDT 09/03/2024 7:18 AM EDT Narrative [facility] - 09/03/2024 7:49 AM EDT Please draw 60min after time that first troponin is drawn. us Rommel Mccoy MD LAB BLOOD ORDERABLES Final Resul t [facility] [address] [place] [address], [facility] * Paracentesis (09/03/2024 7:01 AM EDT) [...] infection and pain Alternatives discussed: No treatment [place] protocol: Procedure explained and questions answered to [...] bandage Post-procedure details: Procedure completion: Tolerated Result [facility] Ana Maria Ramey MD PROCEDURE/MINOR SURGICAL ORDERA BLES Final Result * Albumin, fluid (09/03/2024 6:46 AM EDT) Albumin, Fluid <1.5 g/dL 09/03/2024 8:22 AM EDT [facility] Comment:Reference range not established for this test. Abdominal Fluid ABDOMEN / Unknown 025 6:46 AM EDT 09/03/2024 6:59 AM EDT Jose [facility] - 09/03/2024 8:22 AM EDT This assay has been modified from the drug coordinator's specifications and has been validated with performance characteristics determined by [facility] in accordance with federal regulations [...] ORDERABLE S Final Result Performing Organization Address [facility] de Phone Number [facility] [address] [place] [address] * Protein, body fluid (09/03/2024 6:46 AM EDT) Protein, Fluid <3.0 g/dL 09/03/2024 8:22 AM EDT [facility] Comment:Reference range not established for this test. Paracentesis Fluid ABDOMEN / Unknown 08/13 6:46 AM EDT 09/03/2024 6:59 AM EDT Narrative [facility] - 09/03/2024 8:22 AM EDT This assay has been modified from the drug coordinator's specifications and has been validated with performance characteristics determined by [facility] in accordance with federal regulations [...] ORDERABLE S Final Result Performing Organization Address [facility] de Phone Number [facility] [address] [facility]. [address] * Body fluid cell count (09/03/2024 6:46 AM EDT) Color, Fluid Yellow 09/03/2024 10:15 AM EDT [facility] Clarity, Fluid Hazy 09/03/2024 10:15 AM EDT [facility] Neutrophil %, Fluid 20 % 09/03/2024 10:15 AM EDT [facility] Lymphocytes %, Fluid 20 % 09/03/2024 10:15 AM EDT [facility] Mesothelial %, Fluid 40 % 09/03/2024 10:15 AM EDT [facility] Macrophage %, Fluid 20 % 09/03/2024 10:15 AM EDT [facility] RBC, Fluid 3,380 /uL 09/03/2024 10:15 AM EDT [facility] Total Nucleated Cells, Fluid 9 /uL 09/03/2024 10:15 AM EDT [facility] Comment: No abnormal cells are [...] ORDERABLE S Final Result Performing Organization Address City/[facility]/ZIP Co de Phone Number [facility] [address] [facility]. [address] * Body Fluid Culture plus Stain (09/03/2024 6:46 AM EDT) Gram Stain Result Cytospin Results: [facility] Gram Stain Result No Polymorphonuclear Leukocytes Seen; [facility] Gram Stain Result No Organisms Seen; [facility] Culture Result No Growth After 5 Days [facility] Paracentesis Fluid ABDOMEN / Unknown 08/13 6:46 AM EDT 09/03/2024 6:59 AM EDT us Rommel Mccoy MD MICROBIOLOGY - GENERAL ORDERABLE S Final Result [facility] [address] [facility] * X-ray Portable Chest (09/03/2024 6:06 [...] Veronica MD at 09/03/2024 6:46 AM EDT us Rommel Mccoy MD IMG CT ORDERABLES Final Result * (ABNORMAL) Protime-INR (09/03/2024 5:35 AM EDT) Protime 22.9(H) 12.1 - 15.1 seconds 09/03/2024 6:08 AM EDT [facility] INR 2.0(H) 0.9 - 1.1 09/03/2024 6:08 AM EDT [facility] Comment: RECOMMENDED THERAPEUTIC RANGES USING INR : Stable oral anticoagulant therapy: 2.0 - 3.0 Mechanical prosthetic heart valve: 2.5 - 3.5 Recurrent acute myocardial infarction: 2.5 - 3.5 Plasma 09/03/2024 5:35 AM EDT 09/03/2024 5:51 AM EDT us Rommel Mccoy MD LAB BLOOD ORDERABLES Final Resul t Performing Organization Address City/[facility] Co de Phone Number [facility] [address] [facility]. [address] * ECG for indication of dyspnea (09/03/2024 5:32 AM EDT) 09/03/2024 5:32 AM EDT Narrative MUSE - 09/03/2024 8:00 AM EDT Ventricular Rate: 90 BPM Atrial Rate: 90 BPM P-R Interval: 190 ms QRS Duration: 104 ms QT: 456 ms QTc: 557 ms P [place]: 76 degrees R [place]: -37 degrees T [place]: 16 degrees Diagnosis Line: INTERPRETATION NOT AVAILABLE--ECG READ IN ER ^ Reconfirmed by PHYSICIAN, ER ([id number]), film editor supervisor Tonya BUTLER ([id number]) on 09/03/2024 8:00:24 AM us Rommel Mccoy MD ECG ORDERABLES Edited Result - Final Performing Organization Address [facility] de Phone Number MUSE * High Sensitivity Troponin (09/03/2024 5:29 AM EDT) High Sensitivity Troponin 16 0 - 20 ng/L 09/03/2024 6:02 AM EDT [facility] Serum 09/03/2024 5:29 AM EDT 09/03/2024 5:39 AM EDT us Rommel Mccoy MD LAB BLOOD ORDERABLES Final Resul t Performing Organization Address [facility] Co de Phone Number [facility] [address] * Magnesium (09/03/2024 5:29 AM EDT) Pathologist [facility] Magnesium 2.0 1.5 - 2.5 mg/dL 09/03/2024 6:14 AM EDT [facility] Plasma 09/03/2024 5:29 AM EDT 09/03/2024 5:39 AM EDT us Rommel Mccoy MD LAB BLOOD ORDERABLES Final Resul t Performing Organization Address City/[facility] Co de Phone Number [facility] [address] [facility] * Lipase (09/03/2024 5:29 AM EDT) Lipase 40 4 - 82 U/L 09/03/2024 6:1 4 AM EDT [facility] Plasma 09/03/2024 5:29 AM EDT 09/03/2024 5:39 AM EDT us Rommel Mccoy MD LAB BLOOD ORDERABLES Final Resul t Performing Organization Address [facility] de Phone Number [facility] [address] * (ABNORMAL) Hepatic Function Panel (09/03/2024 5:29 AM EDT) Total Bilirubin 32.5(H) 0.0 - 1.5 mg/dL 09/03/2024 6:14 AM EDT [facility] Bilirubin, Direct 19.8(H) 0.0 - 0.4 mg/dL 09/03/2024 6:14 AM EDT [facility] AST 73(H) 13 - 39 U/L 09/03/2024 6:14 AM EDT [facility] ALT 45 7 - 52 U/L 09/03/2024 6:14 AM EDT [facility] Alkaline Phosphatase 139(H) 36 - 125 U/L 09/03/2024 6:14 AM EDT [facility] Total Protein 5.5(L) 6.4 - 8.9 g/dL 09/03/2024 6:14 AM EDT [facility] Albumin 3.4(L) 3.5 - 5.7 g/dL 09/03/2024 6:14 AM EDT [facility] Bilirubin, Indirect 12.7(H) 0.0 - 1.1 mg/dL 09/03/2024 6:14 AM EDT [facility] Plasma 09/03/2024 5:29 AM EDT 09/03/2024 5:39 AM EDT us Rommel Mccoy MD LAB BLOOD ORDERABLES Final Resul t [facility] [address] [place] [address] * (ABNORMAL) Differential (09/03/2024 5:29 AM EDT) Differential Comments See Note 09/03/2024 7:13 AM EDT [facility] Comment:Acanthocytes Present Scan Result PERFORMED 09/03/2024 7:13 AM EDT [facility] Neutrophils Relative 84.2(H) 40.0 - 80.0 % 09/03/2024 7:13 AM EDT [facility] Lymphocytes Relative 7.9(L) 15.0 - 45.0 % 09/03/2024 7:13 AM EDT [facility] Monocytes Relative 5.7 0.0 - 12.0 % 09/03/2024 7:13 AM EDT [facility] Eosinophils Relative 1.9 0.0 - 8.0 % 09/03/2024 7:13 AM EDT [facility] Basophils Relative 0.3 0.0 - 1.0 % 09/03/2024 7:13 AM EDT [facility] nRBC 0 0 - 0 /100 WBC 09/03/2024 7:13 AM EDT [facility] Neutrophils Absolute 9,094(H) 1,520 - 8,640 /uL 09/03/2024 7:13 AM EDT [facility] Lymphocytes Absolute 853 570 - 4,860 /uL 09/03/2024 7:13 AM EDT [facility] Monocytes Absolute 616 0 - 1,296 /uL 09/03/2024 7:13 AM EDT [facility] Eosinophils Absolute 205 0 - 864 /uL 09/03/2024 7:13 AM EDT [facility] Basophils Absolute 32 0 - 108 /uL 09/03/2024 7:13 AM EDT [facility] PLT Morphology Platelet morphology appears normal 09/03/2024 7:13 AM EDT [facility] Whole Blood 09/03/2024 5:29 AM EDT 09/03/2024 5:51 AM EDT us Rommel Mccoy MD LAB BLOOD ORDERABLES Final Resul t [facility] [address] [place] [address], [facility] * (ABNORMAL) CBC (09/03/2024 5:29 AM EDT) WBC 10.8 3.8 - 10.8 10E3/uL 09/03/2024 7:13 AM EDT [facility] RBC 3.35(L) 4.20 - 5.80 10E6/uL 09/03/2024 7:13 AM EDT [facility] Hemoglobin 11.9(L) 13.2 - 17.1 g/dL 09/03/2024 7:13 AM EDT [facility] Hematocrit 33.0(L) 38.5 - 50.0 % 09/03/2024 7:13 AM EDT [facility] MCV 98.6 80.0 - 100.0 fL 09/03/2024 7:13 AM EDT [facility] MCH 35.6(H) 27.0 - 33.0 pg 09/03/2024 7:13 AM EDT [facility] MCHC 36.2(H) 32.0 - 36.0 g/dL 09/03/2024 7:13 AM EDT [facility] RDW 22.8(H) 11.0 - 15.0 % 09/03/2024 7:13 AM EDT [facility] Platelets 71(L) 140 - 400 10E3/uL 09/03/2024 7:13 AM EDT [facility] Comment: _Platelet Morphology Normal Specimen checked for clots. None detected. Slide Reviewed for PLT Clumps. None Seen. _Platelets Appear Decreased Platelet Estimate Decreased 09/03/2024 7:13 AM EDT [facility] MPV 9.3 7.5 - 11.5 fL 09/03/2024 7:13 AM EDT [facility] Whole Blood 09/03/2024 5:29 AM EDT 09/03/2024 5:51 AM EDT Narrative [facility] - 09/03/2024 7:13 AM EDT Peripheral blood smear was scanned per review criteria approved by the laboratory medical doctor md. us Rommel Mccoy MD LAB BLOOD ORDERABLES Final Resul t [facility] [address] * (ABNORMAL) Basic metabolic panel (09/03/2024 5:29 AM EDT) Sodium 133 133 - 146 mmol/L 09/03/2024 6:14 AM EDT [facility] Potassium 2.6(LL) 3.5 - 5.3 mmol/L 09/03/2024 6:14 AM EDT [facility] Comment:Critical Result K:2. 6 Called to and read back by: SIMEON HANSEN RN at: 09/03/2024 06:14:37 by:COLLINJ Chloride 100 98 - 110 mmol/L 09/03/2024 6:14 AM EDT [facility] CO2 20(L) 21 - 33 mmol/L 09/03/2024 6:14 AM EDT [facility] Anion Gap 13 3 - 16 mmol/L 09/03/2024 6:14 AM EDT [facility] BUN 38(H) 7 - 25 mg/dL 09/03/2024 6:14 AM EDT [facility] Creatinine 3.01(H) 0.60 - 1.30 mg/dL 09/03/2024 6:14 AM EDT [facility] Glucose 133(H) 70 - 100 mg/dL 09/03/2024 6:14 AM EDT [facility] Calcium 8.9 8.6 - 10.3 mg/dL 09/03/2024 6:14 AM EDT [facility] Osmolality, Calculated 287 278 - 305 mOsm/kg 09/03/2024 6:14 AM EDT [facility] EGFR 26 09/03/2024 6:14 AM EDT [facility] Comment:As of 2021, the estimated [...] ORDERABLES Final Resul t Performing Organization Address City/[facility]/ZIP Co de Phone Number [facility] [address] [facility]. [address] * (ABNORMAL) Ammonia (09/03/2024 5:25 AM EDT) Ammonia 166(H) 27 - 90 ug/dL 09/03/2024 8:17 AM EDT [facility] Plasma 09/03/2024 5:25 AM EDT 09/03/2024 5:50 AM EDT us Rommel Mccoy MD LAB BLOOD ORDERABLES Final Resul t [facility] [address] 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 * Assessment & Plan [...] * Assessment & Plan Note - Kathie Sacnhez MD - 09/08/2024 9:51 AM EDT Associated [...] Problem(s): Acute kidney injury superimposed on CKD ([facility]) Admit Cr 3.01 (from 2.91 on [...] kidney disease) stage 4, GFR 15-29 ml/min ([facility]) As above for NADIYA * Assessment & [...] Problem(s): Acute kidney injury superimposed on CKD ([facility]) Admit Cr 3.01 (from 2.91 on 09/02, [...] kidney disease) stage 4, GFR 15-29 ml/min ([facility]) As above for NADIYA * Assessment & [...] kidney disease) stage 4, GFR 15-29 ml/min ([facility]) As above for NADIYA * Assessment & [...] kidney disease) stage 4, GFR 15-29 ml/min ([facility]) As above for NADIYA * Assessment & [...] kidney disease) stage 4, GFR 15-29 ml/min ([facility]) Admit Cr 3.01, 3.26 on repeat (from [...] 25 mg, Oral, Once, On Sun09/06/24 at 1130, For 1 dose Given 09/06/2024 [...] Intravenous, Administer over 60 Minutes, Once, On Sun09/04/24 at 1112, For 1 dose, PROTECT FROM [...] (after last reorder) on Tish 09/04/24 at 7, For 2 doses, MAX INFUSION RATE VIA [...] Schwarz RN)[id number] (New Bag - Provider: Capri Schwraz RN)1636 (New Bag - Provider: Capri Schwarz [...] least 3 BM daily, On hold since Sun09/06/2024 at 1040 until manually unheld 0900 (Not [...] RN) 0856 (Given - Provider: Sofía Perkins RN)2054 (Given [...] Perkins RN)1242 (Given - Provider: Sofía Perkins RN)205 (Given [...] Krista Bernard RN)1112 (Given - Provider: Sofía Perkins, ЮЛИЯ)1536 (Given - Provider: Sofía Perkins, ЮЛИЯ)2055 (Given - Provider: Lydia Harrison RN) 0111 (Given - Provider: Cleveland Villalta, RN)0718 (Given - Provider: Cleveland Villalta, RN)1209 (Given - Provider: Capri Schwarz RN) [...] Resolved Time Rule Out C. difficile 09/08/2024 09/08/20245 10:56 PM EDT Rule Out C. difficile 09/09/2024 09/09/20242024 1:20 PM EDT C. difficile 09/09/2024 09/09/2024 documented as of this encounter
--- OUTSIDE RECORDS SUMMARY | 2024-09-25 11:25 | XMS_ITS | Encounter Summary ---
Author Organization [facility] Address [address] [place] [address] Care Team Providers Care Geospatial Imagery Intelligence Analyst Name Role Phone Unavailable Primary Care Provider [...] release of HIV test results or diagnoses. [id number] Reason for Visit * Reason Comments Labs Only Encounter Details Date Type Department Care Team (Late st Contact Info) Description 09/25/2024 11:[address] [facility] Outreach Lab [address] [place] [phone] [facility] [place] [address] Cirrhosis of liver with ascites, [...] Recorded In the past 12 months has [employer], oil, or water [employer] threatened to shut off services in your [...] time in the past 12 m [facility], were you homeless or living in a senior care (including now)? No 09/05/2024 Yearly Questionnaire Answer [...] Description 12/05/2024 8:01 AM EDT Hospital Encounter [facility] ENDOSCOPY [address] [place] [address] Chris Orosco MD [address] [place] [phone] 12/05/2024 8:01 AM EDT - 12/05/2024 8:31 AM EDT Surgery [facility] ENDOSCOPY [address] [place] [address] Chris Orosco MD [address] [place] [address] EGD Scheduled Procedures Name Priority Associated Diagnoses [...] BARBITURATES NOT PRESENT 09/29/2024 12:39 PM EDT [facility] BENZODIAZEPINES NOT PRESENT 09/30/19 12:39 PM EDT [facility] CANNABINOIDS NOT PRESENT 09/29/2024 12:39 PM EDT [facility] SUPERVISOR GARAGE STIMULANTS NOT PRESENT 12:39 PM EDT [facility] OPIOID ANALGESICS PRESENT 025 12:39 PM EDT [facility] Tramadol >1000 ng/mL 09/29/2024 12:39 PM EDT [facility] OPIOID ANTAGONISTS NOT PRESENT 09/29 12:39 PM EDT [facility] SEDATIVES/MUSCLE RELAXANTS NOT PRESENT 09/29/2024 12:39 PM EDT [facility] TRICYCLIC ANTIDEPRESSANTS NOT PRESENT 09/29/2024 12:39 PM EDT [facility] Creatinine, Ur 122.10 mg/dL 09/26/2024 11:30 AM EDT [facility] Comment:Reference range not established for this test. pH 5.8 4.7 - 7.8 09/26/2024 11:30 AM EDT [facility] Specific [place] 1.010 1.003 - 1.035 09/26/2024 11:30 AM EDT [facility] Urine 09/25/2024 11:5 5 AM EDT 09/25/2024 12:19 PM EDT Narrative [facility] - 09/29/2024 12:39 PM EDT This test has been developed and its performance characteristics determined by [facility] which is certified under the [...] Chinedu Sidhu MD URINE ORDERABLES Final Result [facility] [address] [place] [address], [facility] * Phosphatidylethanol Confirmation, B (09/25/2024 11:55 AM EDT) PETH 16:0/18.1 (POPETH) <10 Cutoff: 10 ng/mL 09/29/2024 12:24 PM EDT [facility] Comment: Phosphatidylethanol (PEth) homologues result [...] Cutoff: 10 ng/mL 09/29/2024 12:24 PM EDT [facility] Comment: PEth 16:0/18:2 (PLPEth) Reference ranges are not well established PEth Interpretation Negative. 09/29 12:24 PM EDT [facility] Comment: ADDITIONAL INFORMATION This report is intended for use in clinical monitoring and management of patients. It is not intended for use in employment-related testing. This test was developed and its performance characteristics determined by [facility] in a manner consistent with CLIA requirements. This test has not been cleared or approved by the U.S. Food and Drug Administration. Test Performed by: [facility] [place] [address] [place] [address] [employer]: Kathy Ortiz Ph.D.; CLIA# [id number] Whole Blood 09/25/2024 11:5 5 AM EDT 09/29/2024 12:24 PM EDT Chinedu Sidhu MD LAB BLOOD ORDERABLES Final Re sult Performing Organization Address [facility] Co de Phone Number [facility] [address] * (ABNORMAL) Hepatic Function Panel (09/25/2024 11:55 AM EDT) Total Bilirubin 20.2(H) 0.0 - 1.5 mg/dL 09/25/2024 1:02 PM EDT [facility] Bilirubin, Direct 13.33(H) 0.00 - 0.40 mg/dL 09/25/2024 1:02 PM EDT [facility] AST 57(H) 13 - 39 U/L 09/25/2024 1:02 PM EDT [facility] ALT 29 7 - 52 U/L 09/25/2024 1:02 PM EDT [facility] Alkaline Phosphatase 171(H) 36 - 125 U/L 09/25/2024 1:02 PM EDT [facility] Total Protein 5.6(L) 6.4 - 8.9 g/dL 09/25/2024 1:02 PM EDT [facility] Albumin 3.5 3.5 - 5.7 g/dL 09/25/2024 1:02 PM EDT [facility] Bilirubin, Indirect 6.87(H) 0.00 - 1.10 mg/dL 09/25/2024 1:02 PM EDT [facility] Plasma 09/25/2024 11:5 5 AM EDT 09/25/2024 12:21 PM EDT Gerri Peterson MD LAB BLOOD ORDERABLES Final Resu lt Performing Organization Address City/[facility]/ZIP Co de Phone Number [facility] [address] [facility]. [address] * (ABNORMAL) Protime-INR (09/25/2024 11:55 AM EDT) Pathologist [facility] Protime 23.6(H) 12.1 - 15.1 seconds 09/25/2024 12:46 PM EDT [facility] INR 2.0(H) 0.9 - 1.1 09/25/2024 12:46 PM EDT [facility] Comment: RECOMMENDED THERAPEUTIC RANGES USING INR : Stable oral anticoagulant therapy: 2.0 - 3.0 Mechanical prosthetic heart valve: 2.5 - 3.5 Recurrent acute myocardial infarction: 2.5 - 3.5 Plasma 09/25/2024 11:5 5 AM EDT 09/25/2024 12:20 PM EDT us Gerri Peterson MD LAB BLOOD ORDERABLES Final Resu lt [facility] [address] [place] [address], [facility] * (ABNORMAL) CBC (09/25/2024 11:55 AM EDT) Pathologist [facility] WBC 8.2 3.8 - 10.8 10E3/uL 09/25/2024 1:43 PM EDT [facility] RBC 2.88(L) 4.20 - 5.80 10E6/uL 09/25/2024 1:43 PM EDT [facility] Hemoglobin 10.8(L) 13.2 - 17.1 g/dL 09/25/2024 1:43 PM EDT [facility] Hematocrit 29.8(L) 38.5 - 50.0 % 09/25/2024 1:43 PM EDT [facility] MCV 103.5(H) 80.0 - 100.0 fL 09/25/2024 1:43 PM EDT [facility] MCH 37.6(H) 27.0 - 33.0 pg 09/25/2024 1:43 PM EDT [facility] MCHC 36.3(H) 32.0 - 36.0 g/dL 09/25/2024 1:43 PM EDT [facility] RDW 20.1(H) 11.0 - 15.0 % 09/25/2024 1:43 PM EDT [facility] Platelets 62(L) 140 - 400 10E3/uL 09/25/2024 1:43 PM EDT [facility] Comment: _Platelets Appear Decreased Slide Reviewed for PLT Clumps. None Seen. Specimen checked for clots. None detected. MPV 8.3 7.5 - 11.5 fL 09/25/2024 1:43 PM EDT [facility] Whole Blood 09/25/2024 11:5 5 AM EDT 09/25/2024 12:20 PM EDT us Gerri Peterson MD LAB BLOOD ORDERABLES Final Resu lt [facility] [address] [place] [address], [facility] * (ABNORMAL) Comprehensive metabolic panel (09/25/2024 11:55 AM EDT) Sodium 133 133 - 146 mmol/L 09/25/2024 12:50 PM EDT [facility] Potassium 4.1 3.5 - 5.3 mmol/L 09/25/2024 12:50 PM EDT [facility] Chloride 103 98 - 110 mmol/L 09/25/2024 12:50 PM EDT [facility] CO2 18(L) 21 - 33 mmol/L 09/25/2024 12:50 PM EDT [facility] Anion Gap 12 3 - 16 mmol/L 09/25/2024 12:50 PM EDT [facility] BUN 42(H) 7 - 25 mg/dL 09/25/2024 12:50 PM EDT [facility] Creatinine 3.13(H) 0.60 - 1.30 mg/dL 09/25/2024 12:50 PM EDT [facility] Glucose 106(H) 70 - 100 mg/dL 09/25/2024 12:50 PM EDT [facility] Calcium 9.3 8.6 - 10.3 mg/dL 09/25/2024 12:50 PM EDT [facility] Total Bilirubin 20.2(H) 0.0 - 1.5 mg/dL 09/25/2024 1:02 PM EDT [facility] AST 57(H) 13 - 39 U/L 09/25/2024 1:02 PM EDT [facility] ALT 29 7 - 52 U/L 09/25/2024 1:02 PM EDT [facility] Alkaline Phosphatase 171(H) 36 - 125 U/L 09/25/2024 1:02 PM EDT [facility] Total Protein 5.6(L) 6.4 - 8.9 g/dL 09/25/2024 1:02 PM EDT [facility] Albumin 3.5 3.5 - 5.7 g/dL 09/25/2024 1:02 PM EDT [facility] Osmolality, Calculated 287 278 - 305 mOsm/kg 09/25/2024 12:50 PM EDT [facility] EGFR 25 09/25/2024 12:50 PM EDT [facility] Comment:As of 2021, the estimated [...] MD LAB BLOOD ORDERABLES Final Resu lt [facility] [address] [place] [address], [facility] documented in this [...]
--- OUTSIDE RECORDS SUMMARY | 2024-09-29 11:00 | XMS_ITS | Encounter Summary ---
Author Organization [facility] Address [address] [place] [address] Care Team Providers Care Top Screw Name Role Phone Unavailable Primary Care Provider [...] release of HIV test results or diagnoses. [id number] Health Encounter Details Date Type Department Care Team (Late st Contact Info) Description 09/29/2024 11:00 AM EDT Office Visit [facility] Psychiatry Transplant at [facility] [address] [facility] [address] [place] [phone] rCaig Warren PsyD [address] [facility] [address] [place] [address] PTSD (post-traumatic stress disorder) (Primary [...] Recorded In the past 12 months has [employer], gas, oil, or water company threatened to [...] were you homeless or living in a chcf (including now)? No 09/05/2024 Yearly Questionnaire Answer [...] harm? 0 09/29/2024 11:00 AM EDT Ro Craig snyder PsyD Trouble falling or staying asleep? 4 [...] The following assessment was informed by the [place] Integrated Psychosocial Assessment for Transplant (SIP AT) and the SIPAT-General TXP Long Form ?? Tyler et al, 2008; Tyler et al, Psychosomatics 2012. Assessment Measures: Clinical Interview Patient Health Questionnaire -9 (PHQ-9) Generalized Anxiety Disorder-7 (MAGALYS-7) Mary Esther Cognitive Assessment (MoCA) [facility] Integrated Psychosocial Assessment for Transplant (SIPAT) Patient [...] mother is and his father resides in [facility]. Patient earned a graduate degree and never served in the . 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 He was raised [employer] and denied current engagement in any community [...] the hallway for extended hours. He elected toleave VIKAS and went directly to [facility] for care. Patient trusts his caregivers to [...] most recent in 2023. Given distance to [facility] (~ 1.25 - 1.5 hr) and transplant [...] well as with an individual counselor, at [facility]. Alcohol use triggers identified as [...] PCP). Was established with Pain Management at [facility] under VALENTINE Rodriguez May 2024. Note [...] for the opportunity to participate in Julien Andersno's care. Impressions and recommendations will be discussed with the transplant team. Please contact me with any additional questions or concerns. CRAIG WARREN PsyD Clinical Psychologist TRANSPLANT PSYCH NOTEWRITER: Txp Psychology, Pre-Transplant: Pre-Surgical Evaluation: 02 Yes Location: 01 Outpatient SIPAT Ratin Poor Decision: 02 Acceptable Candidate - With Stipulations Acceptable Candidate - With Stipulations: 01 CD Treatment and Transplant Psychiatry documented in this encounter Plan of Treatment Upcoming Encounters Date Type Department Care Team (Late st Contact Info) Description 12/05/2024 8:01 AM EDT Hospital Encounter [facility] ENDOSCOPY [address] [place] [address] Chris Orosco MD [address] [place] [phone] 12/05/2024 8:01 AM EDT - 12/05/2024 8:31 AM EDT Surgery [facility] ENDOSCOPY [address] [place] [address] Chris Orosco MD [address] [place] [address] EGD Scheduled Procedures Name Priority Associated Diagnoses [...] Indicated Resolved Time C. difficile 09/09/2024 09/09/2024 Assessment Noted Time PHQ-9 Depression Total Score: 17 025 11:00 AM EDT documented as of this encounter
--- OUTSIDE RECORDS SUMMARY | 2024-09-29 14:20 | XMS_ITS | Encounter Summary ---
Author Organization [facility] Address [address] [place] [address] Care Team Providers Care Lacquer Sprayer Name Role Phone Regina, Lj Nova APRN Unavailable [phone] Enedina Mcguire APRN Primary Care Provider + Reason for Referral * Consultation (Routine) - Authorized Specialty Diagnoses / Procedures Referred By Shane t Referred To Contact Diagnoses NADIYA (acute kidney injury) (CMS/HCC) Portal hypertension (CMS/HCC) Secondary esophageal varices with bleeding (CMS/HCC) Yovanny Curran MD [address] [address] Phone: tel: fax: Referral ID Status Reason Start Date Expiration Date V isits Requested Visits Authorized [id number] Authorized 09/29/2024 03/31/2026 1 1 Reason for Visit * Reason Comments Follow-up Pt did not taken vit al sign Encounter Details Date Type Department Care Team ([facility] Contact Info) Description 09/29/2024 2:20 PM EDT Office Visit [facility]eral Met[facility] [address] , [address] [place] [address] Yovanny Bob MD [address] [place] [address] NADIYA (acute kidney injury) (CMS/HCC) (Primary Dx); Portal hypertension (CMS/HCC); Secondary esophageal varices with bleeding (CMS/HCC) Social History Tobacco Use Types Packs/Day Years Used Date Smoking Tobacco: Former Cigarettes 0.3 10 Passive Smoke Exposure: Never Smokeless Tobacco: Never Comments:2-3 cigs a day Alcohol Use Standard [...] answer 07/14/2024 How often do you attend [facility] or druze services? Patient unable to answer 07/14/2024 Do you belong to any clubs o r organizations such as anabaptism groups, unions, fraternal or athletic groups, or [...] Answer Date Recorded Patient Health Questionnaire-2 Score 2 09/29/2024 [facility] - Occupational Stress Questionnaire Answer Date Recorded [...] place to sleep or slept in a alf (including now)? No 11/19/2023 PHQ-9 Answer Date Recorded Patient Health Questionnaire-9 Score 3 09/29/2024 Housing Stability Vital Sign Answer Bob e Recorded In the last 12 months, was t here a time when you were not able to pay the mortgage or rent on time? No 07/14/2024 In the past 12 months, how m any times have you moved where you were living? 1 07/14/2024 At any time in the past 12 m [facility], were you homeless or living in a alf (including now)? 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-MANAGER TRADING) to steady your nerves or to get rid of a hangover? 0 07/19/2024 CAGE Questionnaire Score 2 025 Utilities Answer Date Recorded In the past 12 months has th [employer], gas, oil, or water [employer] threatened to shut off services in your [...] Sign Reading Time Taken Comments Blood Pressure - - Pulse - - Temperature - - Respiratory Rate - - Oxygen Saturation - - Inhaled Oxygen Concentration - - Weight 113 kg (250 lb) 09/29/2024 1:41 PM EDT Height 193 cm (6' 4 ) 09/29/2024 1:41 PM EDT Body Mass Index 30.43 09/29/2024 1:41 PM EDT documented in this encounter Functional Status * Over the past 2 weeks, how often have you been bothered by any of the following problems? Question Answer Date of Assessment Author Little interest or pleasure in doing things Several days 09/29/2024 1:47 PM EDT Janice Bryant Feeling down, depressed, or hopeless Several days 09/29/2024 1:47 PM EDT Janice Bryant Patient Health Questionnaire -2 Score 2 09/29/2024 1:47 PM EDT Janice Bryant * Question Answer Date of Assessment Author Trouble falling or staying asleep, or sleeping too much Not at all 09/29/2024 1:47 PM EDT Janice Bryant Feeling tired or having sarah le energy Several days 09/29/2024 1:47 PM EDT Janice Bryant Poor appetite or overeating Not at all 09/29/2024 1: 47 PM EDT Janice Bryant Feeling bad about yourself - or that you are a failure or have let yourself or your family down Not at all 09/29/2024 1:47 PM EDT Janice Walter Trouble concentrating on thi ngs, such as reading the newspaper or watching television Not at all 09/29/2024 1:47 PM EDT Janice Bryant Moving or speaking so slowly that other people could have noticed? Or the opposite - being so fidgety or restless that you have been moving around a lot more than usual. Not at all 09/29/2024 1:47 PM EDT Janice Bryant Thoughts that you would be b mariza off or hurting yourself in some way Not at all 09/29/2024 1:47 PM EDT Janice Bryant Patient Health Questionnaire -9 Score 3 09/29/2024 1:47 PM EDT Janice Bryant * If you checked off any problems on this questionnaire so far, Question Answer Date of Assessment Author How difficult have these problems made it for you to do your work, take care of things at home, or get along with other people? Not difficult at all 09/29/2024 1:47 PM EDT Janice Bryant documented as of this encounter Miscellaneous Notes * Progress Notes - Yovanny Curran MD - 09/29/2024 2:20 PM EDT Telehealth Statement Patient Verification Patient identity has been confirmed using name and date of ? Yes Authorizations and Agreements/Telemedicine Consent sent and consent confirmed? Yes Patient Location: Home/Other Patient confirms they are physically located in [place]? Yes If the patient is not physically located in [place], the provider has confirmed with [facility] thatthe provider is authorized to provide services in patient's stated location? N/A Provider Location: [facility] facility Audio and video or audio only? Audio and video Total visit time: 20 minutes HISTORY OF PRESENT ILLNESS Julien Anderson was seen in our clinic previously with/for Follow-up. As you know, patient is a 39 y.o. male who presents to the clinic today as follow up of his NADIYA. Most recently discharged on 09/09 from [facility]. Cr at time of discharge was 2.4. Cr most recently at [facility] was 3.0. On bicarb repletion. C/O abdominal swelling - has been getting more distended more quickly - had 2 LVP last week. Asked him to limit fluid intake. Medical History[1] Family History[2] Surgical History[3] Social [...] and pertinent positive documented in HPI OBJECTIVE There were no vitals filed for this visit. PHYSICAL EXAMINATION Constitutional: No acute distress. HEENT: normal. Cardiovascular: No abnormal pulsations Pulmonary: Normal effort of breathing; Abdominal: No abnormal pulsations Musculoskeletal: Normal range of motion. Skin: No rashes or lesions in exposed areas. Neurologic: At baseline Psychiatric: Orientated to person, place, and time: [...] HRS given underlying decompensated liver disease, Cr 2.4-3.1 Lowest Cr was 1.2 on 07/13, Has had multiple NADIYA since then and hospitalized multiple times Decompensated EtOH cirrhosis, evaluation pending sobriety Acidosis, NAGMA on repletion Hypokalemia Anemia Hyperbilirubinemia - No diuretics as Cr currently tenuous - Recommend para per GI - Will continue current dose of bicarbonate as acidosis persists Status of kidney disease is worse Plan of care: Continue current treatment regimen. Status of kidney disease will be reassessed 6 weeks, labs every 2 weeks. Monitoring for drug toxicity: NADIYA Counseling Documentation: The patient was counseled regarding COUNSELING TOPICS: diagnostic results, prognosis, risks and benefit of treatment options, risk factor reductions, diagnostic impressions, importance of compliance with treatment, and long term acute care registered nurse nature of condition. Education provided was verbal counseling. Additional time was spent in care coordination including medical record review. ENCOUNTER TIMING: I personally spent a total of 20 minutes on this encounter. This time includes face to face with patient, counseling and discussion, lab/result interpretation, coordination of follow-up care, document review. ORDERS PLACED THIS ENCOUNTER Orders Placed This Encounter Procedures Follow Up Nephrology Standing Status: Future Expiration Date: 04/01/2026 Referral Priority: Routine Referral Type: Consultation Number of Visits Requested: 1 [1] Past Medical History: Diagnosis Date Acute [...] Current Outpatient Medications Medication Sig Dispense Refill Bempedoic Acid-Ezetimibe 180-10 MG tablet Take 1 tablet by mouth 1 (one) time each day. ciprofloxacin (Cipro) 500 MG tablet Take 1 tablet by mouth 1 (one) time each day at the same time. Constulose 10 GM/15ML oral solution folic acid (Folvite) 1 MG tablet Take 1 tablet by mouth 1 (one) time each day. lactulose (Enulose) 10 GM/15ML solution oral solution Take 30 mL by mouth 3 (three) times a day as needed. levothyroxine (Synthroid, Levoxyl) 75 MCG tablet Take 1 tablet (75 mcg) by mouth daily before breakfast. 30 tablet 0 naloxone (Narcan) 4 mg/0.1 mL nasal spray 1. Give 1 spray in nostril for no/slow breathing or cannot wake after opioid use 2. Call 911 3. Repeat in other nostril if symptoms continue 1 each 0 pantoprazole (Protonix) 40 MG EC tablet Take 1 tablet (40 mg) by mouth daily. 30 tablet 0 potassium chloride CR (K-Tab) 20 MEQ ER tablet Take 2 tablets by mouth daily. potassium chloride CR (Klor-Con M20) 20 MEQ [...] by mouth 1 (one) time each day. traMADol (Ultram) 50 MG tablet TAKE 1 TABLET BY MOUTH EVERY 12 HOURS NEEDED FOR MODERATE PAIN ursodiol (Actigall) 300 MG capsule Take 1 capsule by mouth twice a day. zinc sulfate (Zincate) 220 (50 Zn) MG capsule Take 1 capsule by mouth 1 (one) time each day. baclofen (Lioresal) 10 MG tablet Take 1 tablet (10 mg) by mouth 3 (three) times a day. Baclofen 5 MG tablet (Patient not taking: Reported on 09/29/2024) cetirizine (ZyrTEC) 10 MG tablet Take 1 tablet (10 mg) by mouth daily as needed for allergies. (Patient not taking: Reported on 09/29/2024) midodrine (Proamatine) 5 MG tablet Take 1 tablet (5 mg) by mouth 3 (three) times a day. 90 tablet 0 octreotide (SandoSTATIN) 100 MCG/ML injection Inject [...] into the muscle1 (one) time per week. thiamine (Vitamin B-1) 100 MG tablet Take 1 tablet by mouth 1 (one) time each day. (Patient not taking: Reported on 09/29/2024) No current facility-administered medications for this visit. [...] Description 12/01/2024 2:20 PM EDT Office Visit [facility] Nephrology, Bone & Mineral Metabolism [address], [address] [place] [address] Yovanny Curran MD [address] [place] [address] 01/08/2025 3:20 PM EDT Office Visit [facility] [address] , [address] [place] [address] Vincent Braga MD [address] [place] [address] Scheduled Referrals Name Type Priority Associated Diagnoses Orde r Schedule Follow Up Nephrology Outpatient Referral Routine NADIYA (acute kidney injury) (CMS/HCC) Portal hypertension (CMS/HCC) Secondary esophageal varices with bleeding (CMS/HCC) 1 Occurrences starting 09/29/2024 until 04/01/2026 documented as of this encounter Visit Diagnoses Diagnosis NADIYA (acute kidney injury) (CMS/HCC)- Primary Portal hypertension (CMS/HCC) Portal hypertension Secondary esophageal varices with bleeding (CMS/HCC) documented in this encounter Additional Health Concerns Assessment Noted Time PHQ-9 Depression Total Score: 3 09/30/19 25 1:47 PM EDT A fall risk assessment has been complete d for the patient 09/29/2024 1:49 PM EDT A Body Mass Index follow-up plan has been documented for the patient 09/29/2024 3:04 PM EDT documented as of this encounter Care Teams Lacquer Sprayer Relationship Specialty Start Date End Date Enedina Mcguire APRN [address] [place] [address] [phone] PCP - General 12/04/22 Lj Tapia APRN [facility] [place] [address] Referring Physician Gastroenterology 07/18/22 documented as of this encounter
--- OUTSIDE RECORDS SUMMARY | 2024-10-05 23:12 | XMS_ITS | Encounter Summary ---
Author Organization [facility] Address [facility] [place] [address] Care Team Providers Care Neurosurgeon Name Role Phone Enedina Mcguire NP Primary Care Provider [phone] Source Comments This information has been disclosed [...] release of HIV test results or diagnoses. [id number] Reason for Referral * Surgical (Routine) - New Request Specialty Diagnoses / Procedures Referred By Shane hernadez Referred To Contact Gastroenterology Diagnoses Alcoholic cirrhosis of liver with ascites (CMS-HCC) Procedures Case request GI: EGD Gerri Peterson MD [address] [place] [address] Phone: tel: fax: Referral ID Status Reason Start Date Expiration Date V isits Requested Visits Authorized [id number] New Request 10/08/2024 04/06/2025 1 1 Reason for Visit * Auth/Cert (Routine) Specialty Diagnoses / Procedures Referred By Shane hernadez Referred To Contact General Internal Medicine Diagnoses [facility] [address] [place] [address] Phone: tel: Referral ID Status Reason Start Date Expiration Date Visits Re quested Visits Authorized [id number] 1 1 Encounter Details Date Type Department Care Team (Latest Contact Info) Description 10/05/2024 11:12 PM EDT - 10/17/2024 10:29 AM EDT Hospital Encounter [facility] [address] [place] [id number] Angie Blanchard MD [address] [place], [place] [id number] Fouzia Rene MD [address] [place] [address] Med/[place] [address] Chelsy Lerner MD [address] [place] [address] [place] [address] Alcoholic cirrhosis of liver with [...] Recorded In the past 12 months has [employer], LemonC[employer], oil, or water boolino threatened to shut off services in your [...] living in a fdc (including now)? No 10/06/2024 Yearly Questionnaire Answer [...] Kandy Fuentes - 10/17/2024 10:29 AM EDT [facility] Care Management Discharge Summary Patient name: Julien [...] Home post discharge: Not Applicable Kandy BAE [facility] [phone] * William Blount MD - 10/17/2024 8:50 AM EDT [facility] Inpatient Discharge Summary Patient: Julien Gilbert Age: 39 y.o. CSN: [id number] Date of Admission: 10/05/2024 Date of Discharge: [...] Case IDs Date Procedure Surgeon Location Status [id number] 10/10/24 EGD Lino Soto MD ENDOSCOPY Comp [id number] 10/14/24 Left Heart Cath Irving Matta MD [...] evidence of local recurrence. Report Verified by: Ablerto Rodriguez MD at 10/14/2024 12:02 PM EDT X-ray Mandible minimum 4-views Final Result IMPRESSION: 1. No acute osseous abnormality. Report Verified by: Diana Devlin MD at 10/08/2024 1:12 PM EDT US Duplex Ens-Xte-Zwvlmlm Comp Final Result IMPRESSION: ABDOMEN 1. Cirrhotic [...] 90 tablet Refills: 0 naloxone 4 mg/actuation Cherokee Commonly known as: NARCAN Apply 1 spray [...] Medications These medications were sent to [facility] [address] [place] [address] Hours: Sunday - Sunday: 8:00AM - 6:00PM FLUoxetine 20 MG capsule lactulose 10 gram/15 mL solution loratadine 10 mg tablet methocarbamoL 500 MG tablet midodrine 10 MG tablet naloxone 4 mg/actuation Cherokee oxyCODONE 5 MG immediate release tablet Discharge [...] kcal/ml supplement ([facility] only) As listed above, low sodium [...] 946 mL 10/17/2024 10:24 AM EDT 10/17/2024 levothyroxine (SYNTHROID) [...] AM EDT 10/17/2024 naloxone (NARCAN) 4 mg/actuation Cherokee Apply 1 spray in one nostril if needed. Call 911. May repeat dose in other nostril if no response in 3 minutes. 2 each 1 10/17/2024 10:25 AM EDT 10/17/2024 pantoprazole (PROTONIX) 40 MG tablet Take 1 [...] 60 capsule 08/19/2024 1:23 PM EDT 08/20/2024 oxyCODONE (ROXICODONE) 5 MG immediate release tabletIndications :Pain Take 1 tablet (5 mg total) by mouth every 6 hours as needed for up to 3 days. 12 tablet 10/17/2024 10:24 AM EDT 10/17/2024 ciprofloxacin HCl (CIPRO) 500 MG tablet Take 1 tablet (500 mg total) by mouth daily. 30 tablet 09/09/2024 3:56 PM EDT 09/10/2024 5 rifAXIMin (XIFAXAN) 550 mg Tab tablet Take 1 tablet (550 mg total) by mouth 2 times a day. 60 tablet 08/19/2024 1:23 PM EDT 08/19/2024 5 sodium bicarbonate 650 MG tablet Take 2 tablets (1,300 mg total) by mouth 3 times a day. 90 tablet 08/19/2024 1:23 PM EDT 08/19/2024 5 ursodioL (ACTIGALL) 300 mg capsule Take 1 capsule (300 mg total) by mouth 2 times a day. 60 capsule 09/09/2024 3:56 PM EDT 09/09/2024 5 documented as of this encounter Progress Notes * Jerad Hughes MD - 10/17/2024 10:23 AM EDT [facility] PROGRESS NOTE Name: Julien Gilbert CSN: [id number] Consulted by: Chelsy Lerner MD Reason for [...] Yes Past Week naloxone (NARCAN) 4 mg/actuation Cherokee Apply 1 spray in one nostril if [...] nucleated cells, <2000 RBCs 10% Polynuclear, 90% Archuleta nuc. There were initial reports of gram [...] of chemical dependency treatment as outpatient. - [facility] with no obstructive coronary disease - Psych eval for PTSD With recommendation of sertraline - Given his renal dysfunction, will plan to list for [facility] when he qualifies on 10/22/2024. Labs next week - Plan for d/c today Bobby Sidhu MD Transplant Linseed Oil Boiler Please see the body of the resident, [...] remains <30 until October 22. Waiting for [facility] today. ASSESSMENT NADIYA on CKD, last [...] Staff. Jeremiah Gamino PGY4 Nephrology. Pager no. [phone] Chief Complaint No chief complaint on file. [...] 9:35 PM EDT Associated attestation - Dwayne aPez MD - 10/16/2024 9:35 PM EDT I [...] visitis Acute kidney injury superimposed on CKD ([facility]). No acute events overnight. No chest pain, [...] at 10/08/2024 1:12 PM EDT US Duplex Rei-Omh-Akxrkbt Comp Final Result IMPRESSION: ABDOMEN 1. Cirrhotic [...] imaging has been performed at [facility]. -CT Head w/o contrast -Imaging showed [...] another specialty or practice, other licensed professional (PT/OT/COMMODITY SPECIALIST/RT), or a non-medical community professional: Hepatology, [...] due to positioning during LHC on 10/14. [place] the worst in CVR, but has improved [...] Kumar RD - 10/16/2024 1:08 PM EDT [facility] Medical Nutrition Therapy Follow-Up Diet Order/Nutrition Support: Regular diet, Boost TID - Vanilla preference Pertinent Information: This is a 39 year old male history of ETOH cirrhosis d/b HE, ascites with SBP who is admitted for AMS. Precipitant of his HE likely SBP. Diagnostic paracentesis at OSH reportedly showed 61 nucleated cells, <2000 RBCs 10% Polynuclear, 90% Archuleta nuc. There were initial reports of gram [...] Based on CBW of 119.5 kg Kcals/day: 3300-2546 (18-21 kcals/kg) Protein g/day: 119-143 (1-1.2 g/kg) [...] Kumar RD, LD Clinical Dietitian Contact via [employer] * Jerad Hughes MD - 10/16/2024 11:03 AM EDT [facility] PROGRESS NOTE Name: Julien Gilbert CSN: [id number] Consulted by: Chelsy Lerner MD Reason for [...] nucleated cells, <2000 RBCs 10% Polynuclear, 90% Archuleta nuc. There were initial reports of gram [...] of chemical dependency treatment as outpatient. - [facility] with no obstructive coronary disease - Psych eval for PTSD With recommendation of sertraline - Given his renal dysfunction, will plan to list for [facility] when he qualifies on 10/22/2024. - Will follow Bobby Sidhu MD Transplant Linseed Oil Boiler Please see the body of the resident, [...] Gilbert Date of Admit: 10/05/2024 Referring physician: Chesly Lerner MD Summary Julien Gilbert is 39 y.o. male with liver cirrhosis, and NADIYA. AMS improved. Transplant evaluation for OLT ongoing. To be eligible for kidney txp- GFR remains <30 until October 22. Waiting for [facility] today. ASSESSMENT NADIYA on CKD, last [...] COMMENT on 10/08/2024 Iron%- Iron replete PLAN -[facility] yesterday- patient remains at risk of contrast related injury on top of exisiting NADIYA for 24-48 hrs after contrast load. -He is volume overloaded -patient needs to follow up closely with nephrology after discharge Thank you for allowing us to participate in this patient's care. Discussed with Consult Staff. Jeremiah Gamino PGY4 Nephrology. Pager no. [phone] Chief Complaint No chief complaint on file. [...] visitis Acute kidney injury superimposed on CKD ([facility]). KARENEON. Pt's C yesterday without concern for severe [...] at 10/08/2024 1:12 PM EDT US Duplex Xxa-Ufc-Dyyhkjo Comp Final Result IMPRESSION: ABDOMEN 1. Cirrhotic [...] imaging has been performed at [facility]. -CT Head w/o contrast -Imaging showed [...] Lerner MD - 10/15/2024 2:47 PM EDT [facility] Medicine Attending Supervision Note Julien Gilbert [...] another specialty or practice, other licensed professional (PT/OT/COMMODITY SPECIALIST/RT), or a non-medical community professional: Hepatology, [...] due to positioning during LHC on 10/14. [place] the worst in CVR, but has improved [...] Hughes MD - 10/15/2024 10:15 AM EDT [facility] PROGRESS NOTE Name: Julien Gilbert CSN: [id number] Consulted by: Chelsy Lerner MD Reason for [...] nucleated cells, <2000 RBCs 10% Polynuclear, 90% Archuleta nuc. There were initial reports of gram [...] of chemical dependency treatment as outpatient. - [facility] yesterday with no obstructive coronary disease - Psych eval for PTSD and medical management - Given his renal dysfunction, will plan to list for [facility] when he qualifies on 10/22/2024. - Will follow Bobby Sidhu MD Transplant Linseed Oil Boiler Please see the body of the resident, [...] Quan MD - 10/14/2024 2:34 PM EDT [facility] Department of Cardiovascular Health and Diseases [...] remains <30 until October 22. Waiting for [facility] today. ASSESSMENT NADIYA on CKD, last [...] COMMENT on 10/08/2024 Iron%- Iron replete PLAN -LHC today -pt is volume up slightly -standing weights daily -c.w sodium bicarb tablets -discssed with the patient anad family about risk of needing HD after LHC Thank you for allowing us to participate in this patient's care. Discussed with Consult Staff. Jeremiah Gamino PGY4 Nephrology. Pager no. [phone] Chief Complaint No chief complaint on file. [...] at 10/08/2024 1:12 PM EDT US Duplex Ctv-Kdb-Lzasbuf Comp Final Result IMPRESSION: ABDOMEN 1. Cirrhotic [...] not tolerate Stress ECHO on 10/09 - C today -Per GI recs, started on midodrine [...] imaging has been performed at [facility]. -CT Head w/o contrast -Imaging showed [...] never required dialysis. Patient is going for [facility] today and will receive contrast, okay [...] another specialty or practice, other licensed professional (PT/OT/COMMODITY SPECIALIST/RT), or a non-medical community professional: Hepatology, [...] attempted stress TTE for work up. - [facility] today for continued cardiac work up prior [...] Hughes MD - 10/14/2024 7:42 AM EDT [facility] PROGRESS NOTE Name: Julien Gilbert CSN: [id number] Consulted by: Chelsy Lerner MD Reason for [...] nucleated cells, <2000 RBCs 10% Polynuclear, 90% Archuleta nuc. There were initial reports of gram [...] eval ongoing. Transplant work up ongoing - [facility] today - Transplant nephrology following for [...] - Will follow Bobby Sidhu MD Transplant Linseed Oil Boiler Please see the body of the resident, [...] Staff. Jeremiah Gamino PGY4 Nephrology. Pager no. [phone] Chief Complaint No chief complaint on file. [...] Hypertension, Other hyperlipidemia (07/26/2024), Renal cell carcinoma ([facility]), Thrombocytopenia ([facility]), and Thyroid disease. he has a [...] Hughes MD - 10/13/2024 12:33 PM EDT [facility] PROGRESS NOTE Name: Julien Gilbert CSN: [id number] Consulted by: Fouzia Rene MD Reason for [...] nucleated cells, <2000 RBCs 10% Polynuclear, 90% Archuleta nuc. There were initial reports of gram [...] eval ongoing. Transplant work up ongoing - [facility] today - Transplant nephrology following for [...] - Will follow Bobby Sidhu MD Transplant Linseed Oil Boiler Please see the body of the resident, [...] any interval liver pathology. * Rebekah Linares, [facility] - 10/13/2024 12:30 PM EDT Start Time: 1230pm End Time: 110pm Goals/objectives targeted: Pt will maintain sobriety. 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 Julien was open that he knows what will trigger him, like going to [employer] to eat wings. 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 Randolph Body Weight: 202 lbs (91.8 kg) +/- 10% Weight History: Wt Readings from Last 10 Encounters: 10/10/24 (!) 263 lb 8 oz (119.5 kg) 09/05/24 (!) 262 lb 9.6 oz (119.1 kg) 09/02/24 (!) 258 lb (117 kg) 08/17/24 (!) 242 lb 11.2 oz (110.1 kg) 07/28/24 (!) 245 lb (111.1 kg) Estimated Nutrition Needs: Based on CBW of 119.5 kg Kcals/day: 6487-1068 (18-21 kcals/kg) Protein g/day: 119-143 (1-1-2 g/kg) [...] Dietitian - Solid Organ Transplant Contact via [employer] * Eileen Schroeder MD, PhD - [...] at 10/08/2024 1:12 PM EDT US Duplex Kpx-Qdd-Xbdfqmg Comp Final Result IMPRESSION: ABDOMEN 1. Cirrhotic [...] imaging has been performed at [facility]. -CT Head w/o contrast -Imaging showed [...] I reviewed the documentation by the medical retail team leader and agree as documented. Any additions or clarifications are listed below. Daily plan was discussed with patient at bedside and questions addressed. Patient ID: Julien Gilbert is a 39 y.o. male currently admitted for Acute kidney injury superimposed on CKD ([facility]) Supplemental History/ ROS: No acute events [...] AM Medical Decision Making/ Assessment & Plan: uJlien Gilbert is a 39 y.o. male with admitted for Acute kidney injury superimposed on CKD ([facility]) Active Problems: NADIYA (acute kidney injury) on CKD ([facility]): Hepatorenal syndrome. Appreciate nephrology consult. S/p [...] was non-diagnostic due to hypotension. Plan for [facility] today, but now moved to tomorrow. [...] another specialty or practice, other licensed professional (PT/OT/COMMODITY SPECIALIST/RT), or a non-medical community professional: Nephrology, [...] / \ 3.64 / 40 \ / 19 / \ / 99 \ PT/INR/PTT - [...] at 10/08/2024 1:12 PM EDT US Duplex Mhi-Ftl-Cyamktv Comp Final Result IMPRESSION: ABDOMEN 1. Cirrhotic [...] imaging has been performed at [facility]. -CT Head w/o contrast -Imaging showed [...] I reviewed the documentation by the medical retail team leader and agree as documented. Any additions or clarifications are listed below. Daily plan was discussed with patient at bedside and questions addressed. Patient ID: Julien Gilbert is a 39 y.o. male currently admitted for Acute kidney injury superimposed on CKD ([facility]) Supplemental History/ ROS: No acute [...] another specialty or practice, other licensed professional (PT/OT/COMMODITY SPECIALIST/RT), or a non-medical community professional: Nephrology, [...] Date of Admit: 10/05/2024 Referring physician: Fouzia Rnee MD Interval hx Cr is slightly worsening. [...] tid. cardiac workup pre txp. pLan for [facility] Sunday Liver transplant workup per GI/ [...] concern for hepatorenal syndrome.` Patient came from [facility], paracentesis was performed yesterday on 10/05? [...] 101.2* PLT 39* 32* 30* Recent Labs 10/10/2452210/11/2430110/12/24 0544 NA 135 134 135 K 3.6 [...] 706.9 (H) 10/08/2024 No results found for: PCYRHMXR87 , FOLATE Lab Results Component Value Date [...] CRUR No results found for: MICROALBUR , [id number] In addition to the above an extensive [...] 4.6 10/12/2024 Lab Results Component Value Date EXMM18B 7.1 (L) 10/08/2024 PLAN Monitor renal panel [...] AM Colten Huertas MD, KISHOR LIN, CATHYF roving inspector Div. of Nephrology [facility] E-mail: [email or web address] This note was completely edited, [...] Rene MD Interval hx No issues. Pending [facility]. Assessment: Renal Function: Cr: 2.77 Bun: [...] concern for hepatorenal syndrome.` Patient came from [facility], paracentesis was performed yesterday on 10/05? Fluid pending for SBP analysis Histories he has a past medical history of Alcoholic cirrhosis of liver ([facility]), Alcoholic hepatitis, Esophageal varices (CMS-HCC), Hepatorenal [...] 706.9 (H) 10/08/2024 No results found for: DXCGPOOH12 , FOLATE Lab Results Component Value Date [...] CRUR No results found for: MICROALBUR , [id number] In addition to the above an extensive [...] 3.5 10/11/2024 Lab Results Component Value Date KTDU42U 7.1 (L) 10/08/2024 PLAN Monitor renal panel [...] AM Colten Huertas MD, KISHOR LIN, FNDeclanF roving inspector Div. of Nephrology [facility] E-mail: [email or web address] This note was completely edited, [...] is Acute kidney injury superimposed on CKD ([facility]). NAEON Pt felt much better today. [...] at 10/08/2024 1:12 PM EDT US Duplex Ack-Adx-Xgmyvda Comp Final Result IMPRESSION: ABDOMEN 1. Cirrhotic [...] from outside facility. Will engage with them daily([phone]. Ask to speak to a tech) about [...] imaging has been performed at [facility]. -CT Head w/o contrast -Imaging showed [...] variceal prevention, but did not tolerate beta domiinc due to hypotension. - s/p EGD 10/09 [...] I reviewed the documentation by the medical retail team leader and agree as documented. Any additions or clarifications are listed below. Daily plan was discussed with patient at bedside and questions addressed. Patient ID: Julien Gilbert is a 39 y.o. male currently admitted for Acute kidney injury superimposed on CKD ([facility]) Supplemental History/ ROS: No acute events [...] another specialty or practice, other licensed professional (PT/OT/COMMODITY SPECIALIST/RT), or a non-medical community professional: Nephrology, [...] Strictly monitor urine output No Indication for PEARL GLUE DRIER 3. Not a candidate for terlipressin per [...] Ignacio Queen MD Renal Fellow Pager # [phone] Chief Complaint No chief complaint on file. [...] concern for hepatorenal syndrome.` Patient came from [facility], paracentesis was performed yesterday on 10/05? [...] BP Temp Temp src Pulse Resp SpO2 05/30/25 1030 114/58 98.1 ??F (36.7 ??C) Oral [...] PHOS -- < > 3.5 3.4 3.3 FLNR52S 7.1* -- -- -- -- < > = values in this interval not displayed. Lab Results Component Value Date IRON 81 10/08/2024 TIBC SEE COMMENT 10/08/2024 FERRITIN 706.9 (H) 10/08/2024 No results found for: HEAUPEHZ95 , FOLATE Lab Results Component Value Date [...] CRUR No results found for: MICROALBUR , [id number] In addition to the above an extensive [...] 3.3 10/10/2024 Lab Results Component Value Date NTMC86W 7.1 (L) 10/08/2024 PLAN Continue IV albumin [...] AM Colten Huertas MD, KISHOR LIN FNKF roving inspector Div. of Nephrology [facility] E-mail: [email or web address] This note was completely edited, [...] of this patient. Jodi Ortiz PharmD Clinical Emergency Room Physician, Internal Medicine Preferred contact: [email or web address] Clinical Pgfmznj-Ur-Vlzp Pager: [phone] October 10, 2024 10:27 AM Laboratory Data [...] 10/07/2024 10:50 PM Giardia Cryptosporidium Antigens Final [id number] 10/07/2024 10:50 PM Ova and Parasite Comprehensive w/ Giardia/Crypto Final [id number] Feces 10/06/2024 1:04 AM #2 Blood culture-Peripheral site 2 Preliminary [id number] Peripheral 10/06/2024 1:04 AM #1 Blood culture-Peripheral site 1 Preliminary [id number] Peripheral Pharmacokinetics Lab Results (Last 7 days) Today 0523 Yesterday 0459 10/08 0536 Vanc Rdm 16.4 11.0 16.0 * Gerri Peterson MD - 10/10/2024 10:09 AM EDT [facility] PROGRESS NOTE Name: Julien Gilbert CSN: [id number] Consulted by: Fouzia Rene MD Reason for [...] nucleated cells, <2000 RBCs 10% Polynuclear, 90% Archuleta nuc. Per OSH reports, ascitic fluid cultures [...] to achieving target HR. -cardiology consult for [facility] on Sunday - Transplant nephrology following [...] from the original note were not included. [facility] Clinical Pharmacy Service: Vancomycin Monitoring Consult Julien [...] in sodium chloride 0.9 % 250 mL Unlk2Ivs (Completed) 1,500 mg Once 10/09/2024 10/09/2024 Admin Instructions: Contact pharmacy if there is a question/concern of whether vancomycin should begiven based on serum drug levels. Use Jxfm2Zua Adapter - Mix Thoroughly Before Administration Route: Intravenous vancomycin (VANCOCIN) 1,500 mg in sodium chloride 0.9 % 250 mL Yazb3Kcp 1,500 mg Once 10/10/2024 10/11/2024 Admin Instructions: Contact pharmacy if there is a question/concern of whether vancomycin should begiven based on serum drug levels. Use Mbys6Paj Adapter - Mix Thoroughly Before Administration Route: [...] in sodium chloride 0.9 % 250 mL Cnvp2Png 1,500 mg 166.7 mL/hr 10/08/24 1259 New Bag vancomycin (VANCOCIN) 1,000 mg in sodium chloride 0.9 % 250 mL Tdhh3Kul 1,000 mg 250 mL/hr --Objective Data-- Vitals: [...] 53 53 54 Creatinine 2.85 2.89 3.04 Randolph body weight: 86.8 kg (191 lb 5.7 oz) Adjusted ideal body weight: 99.9 kg (220 lb 3.5 oz) Estimated CrCl: ~35-45 mL/min --Cultures-- Microbiology Results Date and Time Order Name Sensitivity Status Organisms Specimen ID Source 10/07/2024 10:50 PM Giardia Cryptosporidium Antigens Final [id number] 10/07/2024 10:50 PM Ova and Parasite Comprehensive w/ Giardia/Crypto Final [id number] Feces 10/06/2024 1:04 AM #2 Blood culture-Peripheral site 2 Preliminary [id number] Peripheral 10/06/2024 1:04 AM #1 Blood culture-Peripheral site 1 Preliminary [id number] Peripheral --Vancomycin Concentrations-- Lab Results (Last 7 [...] for the consult. Jodi Ortiz PharmD Clinical Emergency Room Physician, Internal Medicine Preferred contact: [email or web address] Clinical Mqaljdl-Ab-Hcxi Pager: [phone] October 10, 2024 9:13 AM * Eileen Schroeder MD, PhD - 10/10/2024 8:17 AM EDT Department of Internal Medicine Daily Progress Note Chief Complaint / Reason for Follow-Up Julien Gilbert is a 39 y.o. male on hospital day 5. The principal reason for today's follow up visit is Acute kidney injury superimposed on CKD ([facility]). DREW Pt was very conversational today. A&O [...] at 10/08/2024 1:12 PM EDT US Duplex Suz-Ipq-Xeonnec Comp Final Result IMPRESSION: ABDOMEN 1. Cirrhotic [...] from outside facility. Will engage with them daily([phone]. Ask to speak to a [email or web address]) about culture data updates. #Aphasia Patient appears [...] imaging has been performed at [facility]. -CT Head w/o contrast -Imaging showed [...] I reviewed the documentation by the medical retail team leader and agree as documented. Any additions or clarifications are listed below. Daily plan was discussed with patient at bedside and questions addressed. Patient ID: Julien Gilbert is a 39 y.o. male currently admitted for Acute kidney injury superimposed on CKD [place] Supplemental History/ ROS: No acute events overnight [...] for Acute kidney injury superimposed on CKD ([facility] Active Problems: Spontaneous Bacterial Peritonitis ([facility]): Cultures from OSH were reported as growing [...] another specialty or practice, other licensed professional (PT/OT/COMMODITY SPECIALIST/RT), or a non-medical community professional: Nephrology, [...] Strictly monitor urine output No Indication for PEARL GLUE DRIER Not a candidate for terlipressin per liver due to HE, liver and kidney failure, on midodrine tid. Considering para today, cardiac workup pre txp Liver transplant workup per GI/ Primary team, considering for SLK, seen by renal transplant team Thank you for allowing us to participate in this patient's care. Discussed with Consult Staff. Ignacio Queen MD Renal Fellow Pager # [phone] Chief Complaint No chief complaint on file. [...] concern for hepatorenal syndrome.` Patient came from [facility], paracentesis was performed yesterday on 10/05? [...] 9.0 9.3 PHOS -- 3.5 3.5 3.4 [id number] 7.1* -- -- -- Lab Results Component Value Date IRON 81 10/08/2024 TIBC SEE COMMENT 10/08/2024 FERRITIN 706.9 (H) 10/08/2024 No results found for: XDBKPIUW27 , FOLATE Lab Results Component Value Date [...] CRUR No results found for: MICROALBUR , [id number] In addition to the above an extensive [...] 3.4 10/09/2024 Lab Results Component Value Date VVAP82R 7.1 (L) 10/08/2024 PLAN Continue IV albumin [...] 10/09/2024 1:05 PM Colten Huertas MD, KISHOR LIN, PETE roving inspector Div. of Nephrology [facility] E-mail: [email or web address] This note was completely edited, [...] - 10/09/2024 1:07 PM EDT [facility] HEPATOLOGY PROGRESS NOTE Name: Julien Gilbert CSN: [id number] Consulted by: Fouzia Rene MD Reason for [...] nucleated cells, <2000 RBCs 10% Polynuclear, 90% Archuleta nuc. Fluid cultures reportedly grew gram + [...] and Hepatology Staff * Tani TroyD - 10/09/2024 8:29 AM EDT Images from the original note were not included. [facility] Clinical Pharmacy Service: Vancomycin Monitoring Consult Julien [...] in sodium chloride 0.9 % 250 mL Lqhz9Dfx (Completed) 1,000 mg Once 10/08/2024 10/08/2024 Admin Instructions: Contact pharmacy if there is a question/concern of whether vancomycin should begiven based on serum drug levels. Use Swup7Ckp Adapter - Mix Thoroughly Before Administration Route: Intravenous vancomycin (VANCOCIN) 1,500 mg in sodium chloride 0.9 % 250 mL Gkdy1Ulh 1,500 mg Once 10/09/2024 10/10/2024 Admin Instructions: Contact pharmacy if there is a question/concern of whether vancomycin should begiven based on serum drug levels. Use Iyky4Cpl Adapter - Mix Thoroughly Before Administration Route: [...] in sodium chloride 0.9 % 250 mL Fhzp0Dqc 1,000 mg 250 mL/hr 10/06/24 1413 New [...] 10/07/2024 10:50 PM Giardia Cryptosporidium Antigens Final [id number] 10/07/2024 10:50 PM Ova and Parasite Comprehensive w/ Giardia/Crypto Final [id number] Feces 10/06/2024 1:04 AM #2 Blood culture-Peripheral site 2 Preliminary [id number] Peripheral 10/06/2024 1:04 AM #1 Blood culture-Peripheral site 1 Preliminary [id number] Peripheral --Vancomycin Concentrations-- Lab Results (Last 7 [...] Thank you for the consult. Jodi Ortiz, TaniD Clinical Emergency Room Physician, Internal Medicine Preferred contact: [email or web address] Clinical Zgtlben-Rz-Psxj Pager: [phone] October 09, 2024 8:29 AM * Eileen Schroeder MD, PhD - 10/09/2024 8:00 AM EDT Department of Internal Medicine Daily Progress Note Chief Complaint / Reason for Follow-Up Julien Gilbert is a 39 y.o. male on hospital day 4. The principal reason for today's follow up visit is Acute kidney injury superimposed on CKD (CMS-HCC). KARENEMERLINE and father at bedside Pt fully conversational [...] at 10/08/2024 1:12 PM EDT US Duplex Wgq-Ivh-Wtjxkbg Comp Final Result IMPRESSION: ABDOMEN 1. Cirrhotic [...] from outside facility. Will engage with them daily([phone]. Ask to speak to a tech) about [...] imaging has been performed at [facility]. -CT Head w/o contrast -Imaging showed [...] I reviewed the documentation by the medical retail team leader and agree as documented. Any additions or clarifications are listed below. Daily plan was discussed with patient at bedside and questions addressed. Patient ID: Julien Gilbert is a 39 y.o. male currently admitted for Acute kidney injury superimposed on CKD ([facility]) Supplemental History/ ROS: No acute [...] for Acute kidney injury superimposed on CKD ([facility]) Active Problems: Anemia: S/p 1 unit PRBC from yesterday. Hemoglobin responded appropriately and remained stable. Will continue to monitor. Metabolic encephalopathy: Mostly resolved. Likely related to combination of hepatic, metabolic, andpossibly infectious insults. - Continue home lactulose and rifaximin Spontaneous Bacterial Peritonitis ([facility]): Cultures from OSH are growing gram- positive organisms.We continue to await speciation. He remains afebrile and vital signs have been stable. - Continue vancomycin and ceftriaxone for now. - Will follow-up on speciation and sensitivities. Decompensated cirrhosis ([facility]): Appreciate hepatology consult. He has started [...] another specialty or practice, other licensed professional (PT/OT/COMMODITY SPECIALIST/RT), or a non-medical community professional: Nephrology, Hepatology Labs reviewed (1 pt each): CBC, CMP, INR & other daily labs Review of notes from a different specialty or different practice: Nephrology, Anesthesiology hepatology, * Gerri Peterson MD - 10/08/2024 1:40 PM EDT [facility] HEPATOLOGY PROGRESS NOTE Name: Julien Gilbert CSN: [id number] Consulted by: Fouzia Rene MD Reason for [...] Hypertension Other hyperlipidemia 07/26/2024 Renal cell carcinoma ([facility]) Thrombocytopenia ([facility]) Thyroid disease History reviewed. No pertinent [...] nucleated cells, <2000 RBCs 10% Polynuclear, 90% Archuleta nuc. Fluid cultures reportedly grew gram + [...] (ESRD) patient in a hospital based, [facility]-hospital based, or home setting. -At the [...] I have discussed this plan with the office service coordinator and the liver transplant team. Cosigned [...] from the original note were not included. [facility] Clinical Pharmacy Service: Vancomycin Monitoring Consult Julien [...] in sodium chloride 0.9 % 250 mL Kndh1Pfo 1,000 mg Once 10/08/2024 10/09/2024 Admin Instructions: Contact pharmacy if there is a question/concern of whether vancomycin should begiven based on serum drug levels. Use Adhy4Wtt Adapter - Mix Thoroughly Before Administration Route: [...] 10/07/2024 10:50 PM Giardia Cryptosporidium Antigens Final [id number] 10/07/2024 10:50 PM Ova and Parasite Comprehensive w/ Giardia/Crypto In process [id number] Feces 10/06/2024 1:04 AM #2 Blood culture-Peripheral site 2 Preliminary [id number] Peripheral 10/06/2024 1:04 AM #1 Blood culture-Peripheral site 1 Preliminary [id number] Peripheral --Vancomycin Concentrations-- Lab Results (Last 7 [...] for the consult. Jodi Ortiz PharmD Clinical Emergency Room Physician, Internal Medicine Preferred contact: [email or web address] Clinical Xasfmkg-Ei-Xytu Pager: [phone] October 08, 2024 9:13 AM * Eileen [...] FREET4 0.74 09/03/2024 Diagnostic Studies US Duplex Ied-Sku-Mqxplts Comp Final Result IMPRESSION: ABDOMEN 1. Cirrhotic [...] imaging has been performed at [facility]. -CT Head w/o contrast -Imaging showed [...] I reviewed the documentation by the medical retail team leader and agree as documented. Any [...] tomorrow NADIYA (acute kidney injury) on CKD (CMS-HCC): Appreciate nephrology consult. Likely has hepatorenal syndrome. [...] Acute kidney injury superimposed on CKD (CMS-HCC) Thrombocytopenia (CMS-HCC) Renal mass, left Metabolic acidosis [...] another specialty or practice, other licensed professional (PT/OT/COMMODITY SPECIALIST/RT), or a non-medical community professional: Nephrology, [...] Strictly monitor urine output No Indication for PEARL GLUE DRIER Not a candidate for terlipressin per liver due to HE, liver ans kidney failure, on midodrine tid Liver transplant workup per GI/ Primary team, considering for SLK Thank you for allowing us to participate in this patient's care. Discussed with Consult Staff. Ignacio Queen MD Renal Fellow Pager # [phone] Chief Complaint No chief complaint on file. [...] concern for hepatorenal syndrome.` Patient came from [facility], paracentesis was performed yesterday on 10/05? [...] TIBC , FERRITIN No results found for: [id number] , FOLATE Lab Results Component Value Date [...] <15 No results found for: MICROALBUR , [id number] In addition to the above an extensive [...] 4.0 10/08/2024 Lab Results Component Value Date GSEB13Y 7.1 (L) 10/08/2024 PLAN Continue IV albumin [...] AM Colten Huertas MD, KISHOR LIN, CATHYF roving inspector Div. of Nephrology [facility] E-mail: [email or web address] This note was completely edited, [...] from the original note were not included. [facility] Clinical Pharmacy Service: Vancomycin Monitoring Consult Julien [...] AM #2 Blood culture-Peripheral site 2 Preliminary [id number] Peripheral 10/06/2024 1:04 AM #1 Blood culture-Peripheral site 1 Preliminary [id number] Peripheral --Vancomycin Concentrations-- Lab Results (Last 7 [...] for the consult. Jodi Ortiz PharmD Clinical Emergency Room Physician, Internal Medicine Preferred contact: [email or web address] Clinical Mpxazjw-Uw-Npbx Pager: [phone] October 07, 2024 5:01 PM * Yamile Paige, PT - 10/07/2024 11:45 AM EDT Physical Therapy Initial Assessment and Discharge Name: Julien Gilbert : 1985 Attending Physician: Fouzia Rene MD Admission Diagnosis: AMS Date: 10/07/2024 [facility] Pertinent hospital course: Yes Hospital [...] - 10/07/2024 11:33 AM EDT [facility] HEPATOLOGY PROGRESS NOTE Name: Julien Gilbert CSN: [id number] Consulted by: Fouzia Rene MD Reason for [...] nucleated cells, <2000 RBCs 10% Polynuclear, 90% Archuleta nuc. Fluid cultures reportedly grewgram + rods. [...] in liver selection meeting and clearance by geriatric social work professor. Please order CT cardiac coronary evaluation, [...] Strictly monitor urine output No Indication for PEARL GLUE DRIER Liver transplant workup per GI/ Primary team Thank you for allowing us to participate in this patient's care. Discussed with Consult Staff. Ignacio Queen MD Renal Fellow Pager # [phone] Chief Complaint No chief complaint on file. [...] concern for hepatorenal syndrome.` Patient came from [facility], paracentesis was performed yesterday on 10/05? [...] TIBC , FERRITIN No results found for: [id number] , FOLATE Lab Results Component Value Date [...] <15 No results found for: MICROALBUR , [id number] In addition to the above an extensive [...] PHOS 4.2 10/07/2024 No results found for: DYVF80P PLAN Continue IV albumin Monitor renal panel [...] years Sex: Male at 10/07/2024 6:00 AM Coletn Huertas MD, KISHOR LIN FNKF roving inspector Div. of Nephrology [facility] E-mail: [email or web address] * Carmen Bernal OT - 10/07/2024 11:09 AM EDT Occupational Therapy Initial Assessment and Discharge Name: Julien Gilbert : 1985 Attending Physician: Fouzia Rene MD Admission Diagnosis: AMS Date: 10/07/2024 Room: [address] [place] [address] Reviewed Pertinent hospital course: Yes Hospital Course [...] Hypertension Other hyperlipidemia 07/26/2024 Renal cell carcinoma ([facility]) Thrombocytopenia ([facility]) Thyroid disease Past Surgical History No past [...] at 10/06/2024 2:33 AM EDT US Duplex Xym-Pul-Uwqiwjf Comp (Results Pending) US Abdomen Complete (Results [...] imaging has been performed at [facility]. -CT Head w/o contrast -Imaging showed [...] I reviewed the documentation by the medical retail team leader and agree as documented. Any [...] rifaximin and lactulose NADIYA (acute kidney injury) ([facility]): Appreciate nephrology consult. Likely has hepatorenal [...] needed for pain. Continue to monitor. Thrombocytopenia ([facility]) Renal mass, left CKD (chronic kidney disease) stage 4, GFR 15-29 ml/min ([facility]) Metabolic acidosis with normal [...] another specialty or practice, other licensed professional (PT/OT/COMMODITY SPECIALIST/RT), or a non-medical community professional: Nephrology, Hepatology Labs reviewed (1 pt each): CMP, CBC Test results reviewed (1 pt each): CXR, Head CT Review of notes from a different specialty or different practice: Nephrology, hepatology Use of parenteral controlled substances * Kiet Gardiner, Lissett - 10/06/2024 1:07 PM EDT Images from the original note were not included. [facility] Clinical Pharmacy Service: Vancomycin Monitoring Consult Julien [...] 140/74 Pulse: 98 95 95 101 Resp: Temp: 97.6 ??F (36.4 ??C) 97.4 ??F [...] AM #2 Blood culture-Peripheral site 2 Preliminary [id number] Peripheral 10/06/2024 1:04 AM #1 Blood culture-Peripheral site 1 Preliminary [id number] Peripheral --Vancomycin Concentrations-- Lab Results (Last 7 [...] US Retroperitoneal complete (Results Pending) US Duplex Akw-Rll-Tkfigsw Comp (Results Pending) CT Head WO contrast [...] PM EDT Hospital Medicine Attending Supervision Note [facility] Julien Gilbert was seen 10/06/24 on rounds [...] Department of Medicine TRANSFER CALL NOTE Location [facility] ED History of Present Illness Julien [...] Studies: Na 129 K 4.2 Cl 101 Xnhzlf55 BUN 62 (up from baseline) Cr 3.6 [...] Quan MD - 10/14/2024 1:10 PM EDT [facility] PRE-SEDATION ASSESSMENT, HISTORY & PHYSICAL Date: 10/14/2024 [...] Neuro: AOx3 AUC For Cath Indication(s) for Palliative Nurse Visit: Visit Indicators: Suspected CAD 2. Chest Pain Symptom Assessment: Asymptomatic 3. Heart Failure: Yes Class II 4. CHSA Clinical Frailty Scale: Mildly Frail Sedation Plan: Moderate Sedation with Local Anesthesia Antibiotic prophylaxis is not indicated. Mani Quan Interventional Link Knitting Machine Operator Pager: [phone] [1] Patient Active Problem List Diagnosis Decompensated cirrhosis ([facility]) Acute kidney injury superimposed on CKD ([facility]) Alcohol use disorder Metabolic encephalopathy Hypertension Other hyperlipidemia Thrombocytopenia ([facility]) Renal mass, left Abdominal pain Hypokalemia [...] Peterson MD - 10/10/2024 10:05 AM EDT [facility] PRE-SEDATION ASSESSMENT, HISTORY & PHYSICAL Date: 10/10/2024 [...] Patient Active Problem List Diagnosis Decompensated cirrhosis ([facility]) Acute kidney injury superimposed on CKD ([facility]) Alcohol use disorder Metabolic encephalopathy Hypertension Other hyperlipidemia Thrombocytopenia ([facility]) Renal mass, left Abdominal pain Hypokalemia CKD (chronic kidney disease) stage 4, GFR 15-29 ml/min ([facility]) Metabolic acidosis with normal anion gap and bicarbonate losses GERD (gastroesophageal reflux disease) Hypothyroidism Itching Anemia BRBPR (bright red blood per rectum) SBP (spontaneous bacterial peritonitis) ([facility]) C Diff Diarrhea C. difficile diarrhea [...] Systems: Review of systems performed. See RAFFI ROS review. Vital Signs: BP Readings from Last [...] Strain: Low Risk (07/09/2024) Received from [facility] Overall Financial Resource Strain (CARDIA) Difficulty of [...] Activity: Unknown (07/14/2024) Received from [facility] Exercise Vital Sign Days of Exercise per Week: Patient unable to answer Minutes of Exercise per Session: Not on file Stress: Patient Unable To Answer (07/14/2024) Received from [facility] [place] [employer] - Occupational Stress Questionnaire Feeling of Stress : Patient unable to answer Social Connections: Patient Unable To Answer (07/14/2024) Received from [facility] Social Connection and Isolation Panel [NHANES] Frequency of Communication with Friends and Family: Patient unable to answer Frequency of Social Gatherings with Friends and Family: Patient unable to answer Attends [employer] Services: Patient unable to answer Active Member [...] cefTRIAXone (ROCEPHIN) IVPB 2 g Q24H Bisi Hernandez DO 2 g at 10/09/24 1312 DOBUTamine [...] vancomycin intermittent/pulse dosing PLACEHOLDER ORDER UD PRN Angie Blanchard MD zinc sulfate 220 mg Daily 0900 Bisi Akella, DO 220 mg at 10/09/24 0802 Allergies: [...] values in this interval not displayed. Imaging: @EDDLMXT85KG@ I have personally reviewed the imaging and have noted the following: Large recanalized umbilical vein Perihilar varices Replaced right hepatic artery Splenomegaly Spontaneous splenorenal shunt Large volume ascites, No portal vein thrombosis Assessment/Plan: A 39 y.o. male with ETOH decompensated by ascites, hepatic encephalopathy,bleeding esophageal Varices. Use and allocation of SCD, ACCOUNTING ASSOCIATE, DCD and LDLT allografts discussed in detail. [...] from surgery (5%). I also explained the nursing home risks of transplantation and immunosuppression including viral infection and cancer both solid organand lymphoma. Kemar Sahni MD, Fellow, Multiorgan Abdominal Transplant Surgery. [facility]. 10/09/2024 3:16 PM [1] Allergies Allergen [...] Ortiz MD - 10/06/2024 12:00 AM EDT [facility] Internal Medicine - History and Physical [...] taken to Radiology overnight for imaging upload. [facility] performed a bedside paracentesis and sent studies for SBP analysis. [facility] to see if labs have resulted. Review of Systems 14 pt ROS conducted and negative aside from that mentioned in above HPI Past Medical and Social History Lives in [place], [place] at bedside Notes that the patient [...] AM EDT Hospital Medicine Attending Supervision Note [facility] Julien Gilbert was seen 10/06/24 on rounds [...] confusion and lethargy. HE was seen at [facility] ED were CT head unremarkable and RUQ with gallstones, abdominal ascites diagnostic para done and started on empiric CTX. Labs remarkable at OSH for K 4.2 Cl 101 Ecrtni37 BUN 62 (up from baseline) Cr 3.6 [...] another specialty or practice, other licensed professional (PT/OT/COMMODITY SPECIALIST/RT), or a non-medical community professional: ed [...] Medicine Department of Internal Medicine Pager ID: [phone] 6:04 AM, 10/06/2024 documented in this encounter [...] can be located in EPIC Procedures (or [facility] Imaging) Tabs. Please call with any questions. BAKARI WAHL CNP Vascular & Interventional Radiology 10/10/2024,1:55 PM [facility]: [phone]) * Lino Soto MD - 10/10/2024 12:06 PM EDT EGD Brief Op Note Julien Gilbert 10/05/2024 - 10/10/2024 Pre-op Diagnosis: Alcoholic cirrhosis of liver with ascites (CMS-HCC) [K70.31] Post-op Diagnosis: Portal gastropathy, Medium size, non-bleeding esophageal varices Procedure(s): EGD Surgeon(s): Lino Soto MD Anesthesia: MAC (Monitor Anesthesia Care) Staff: Fellow: Gerri Peterson MD Endoscopy Nurse: Kandice Castaneda RN Midwife Practitioner: Diana Kemp Estimated Blood Loss: Minimal Specimens: Drains: There were no complications unless listed below. LINO SOTO MD Date: 10/10/2024 Time: 12:18 PM * Lino Soto MD - 10/10/2024 11:48 AM EDT [id number] Procedure Date: 10/10/2024 11:48 AM Patient Name: Julien Gilbert Date of : 1985 Admit Type: Inpatient Age: 39 Gender: Male Note Status: Finalized Attending MD: Lino Soto MD, [id number] Procedure: Upper GI endoscopy Indications: Gastroesopahgeal variceal [...] verified by the physician, the nurse, the offset lithographic press setter and the shop service technician in the pre-procedure area in the [...] to hypotension Procedure Code(s): --- Professional --- 90494, GC, Esophagogastroduodenoscopy, flexible, transoral; diagnostic, including collection of specimen(s) by brushing or washing, when performed (separate procedure) Diagnosis Code(s): --- Professional --- I85.00, Esophageal varices without bleeding K76.6, Portal hypertension K31.89, Other diseases of stomach and duodenum CPT copyright 2022 [employer]. All rights reserved. The codes documented in this report are preliminary and upon remote medical coder review may be revised to meet current compliance requirements. Attending Participation: I was present and participated during the entire procedure, including non-albarado portions. Lino Soto MD iLno Soto MD 10/10/2024 12:34:37 PM This report has been signed electronically.MD Vernon Appiah MD Gerri Peterson MD 10/10/2024 12:29:47 PM Total Procedure Duration Time 0 hours 7 minutes 12 seconds Scope In: 12:10:16 PM Scope Out: 12:17:[address] [place] [address], [facility] * Gill Le RN - 10/09/2024 4:00 [...] this time. 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 Describes significant anxiety that occasionally limits his ability to drive, and stated he has to plant puller occasionally to collect himself, thought denied [...] need for sleep. Has not been on the [facility] since stopping the cymbalta. [...] his father resides in [facility]. Patient earned a graduate degree and never served in the . 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 He was raised [employer] and denied current engagement in any community [...] or other abnormalities Cognition/Memory: short term and nursing home memory intact. Attention and concentration: is not [...] from the original note were not included. [facility] General Cardiology Consult Note Referring Physician: [...] at baseline or with provocation, shows no mpqkf-nu-buwk atrial level shunt. - Pulmonary arteries: Systolic [...] 10/13/24, please keep NPO on 10/12/24 at [place] Risks and benefits of new therapies added and new invasive and non-invasive procedures/diagnostic testing planned discussed with and understood by the patient/family who agree with the above plan. Plan discussed with the attending physician Dr. Blanco. Recommendations are preliminary until this note is co- signed by the attending. Follow up appointments with Cardiology can be scheduled by calling [phone]. Thank you for the opportunity to participate in this patient's care. Please call orpage with any questions. Leonor Garcia MD Link Knitting Machine Operator I have personally seen, examined, [...] 0659 10/11/24 0700 - 10/12/24 0659 Shift [id number] 2828-8754 24 Hour Total 5385-1863 7046-4093 3551-7319 24 Hour Total INTAKE P.O. 4589 090 4160 P.O. 9903 419 9867 Boost (mL) - [facility] [...] (See Comments) Became Manic * Bakari Wahl, [facility] - 10/10/2024 10:07 AM EDT Interventional Radiology [...] 10/10/2024,1:54 PM [facility] [facility]: [phone]([id number]) [1] Social History Tobacco Use Smoking Status [...] EDTAssociated Order(s): IP CONSULT TO INFECTIOUS DISEASES [facility] DEPARTMENT OF INFECTIOUS DISEASE INITIAL NOTE Referring Physician: Fouzia Rene MD Consult Attending: Daria Garcia Patient: Julien Gilbert CSN: [id number] Reason for Consult: CC: Abx management History [...] He was born and raised in [facility] . No travel to the [facility]. 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 [...] Strain: Low Risk (07/09/2024) Received from [facility] Overall Financial Resource Strain (CARDIA) Difficulty of [...] Activity: Unknown (07/14/2024) Received from [facility] Exercise Vital Sign Days of Exercise per Week: Patient unable to answer Minutes of Exercise per Session: Not on file Stress: Patient Unable To Answer (07/14/2024) Received from [facility] [place] of Occupational Health - Occupational Stress Questionnaire Feeling of Stress : Patient unable to answer Social Connections: Patient Unable To Answer (07/14/2024) Received from [facility] Social Connection and Isolation Panel [NHANES] Frequency of Communication with Friends and Family: Patient unable to answer Frequency of Social Gatherings with Friends and Family: Patient unable to answer Attends Uatsdin Services: Patient unable to answer Active Member [...] day. Qty: 60 tablet, Refills: 0 Comments: [facility] in [place] 82 sodium bicarbonate 650 MG tablet Take 2 [...] Aphasia [R47.01] 10/06/2024 SBP (spontaneous bacterial peritonitis) ([facility]) [K65.2] 09/08/2024 Metabolic acidosis with normal anion gap and bicarbonate losses [E87.20] 09/03/2024 CKD (chronic kidney disease) stage 4, GFR 15-29 ml/min ([facility]) [N18.4] 09/03/2024 GERD (gastroesophageal reflux disease) [K21.9] 09/03/2024 Renal mass, left [N28.89] 08/18/2024 Thrombocytopenia ([facility]) [D69.6] Decompensated cirrhosis ([facility]) [K72.90, K74.60] 07/25/2024 NADIYA (acute kidney injury) ([facility]) [N17.9] 07/25/2024 Resolved Hospital [...] Signed: Daria Garcia MD 10/08/2024, 9:46 AM [phone] [1] Allergies Allergen Reactions Adhesive Itching and [...] Strain: Low Risk (07/09/2024) Received from [facility] Overall Financial Resource Strain (CARDIA) Difficulty of [...] Activity: Unknown (07/14/2024) Received from [facility] Exercise Vital Sign Days of Exercise per Week: Patient unable to answer Minutes of Exercise per Session: Not on file Stress: Patient Unable To Answer (07/14/2024) Received from [facility] [place] [facility] [employer] [facility] - Occupational Stress Questionnaire Feeling of Stress : Patient unable to answer Social Connections: Patient Unable To Answer (07/14/2024) Received from [facility] Social Connection and Isolation Panel [NHANES] Frequency of Communication with Friends and Family: Patient unable to answer Frequency of Social Gatherings with Friends and Family: Patient unable to answer Attends Uatsdin Services: Patient unable to answer Active Member [...] is no recent study available for direct [id number] comparison. Left Ventricle The left ventricle is [...] 35 mmHgon resting echo from [facility] 07/15/24. No ischemic workup noted. ECG [...] surgery with risk (OLT/OKT) Los Broussard MD, [facility] Department of Anesthesiology [1] Allergies Allergen Reactions Adhesive Itching and Rash Tegaderm adhesive on Ivs, pt states its tolerable Duloxetine Other (See Comments) Became Manic [2] Patient Active Problem List Diagnosis Decompensated cirrhosis ([facility]) NADIYA (acute kidney injury) ([facility]) Alcohol use disorder Metabolic encephalopathy Hypertension Other hyperlipidemia Thrombocytopenia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 10/15/2024 6:51 AM EDT [facility] MCV 100.8(H) 80.0 - 100.0 fL 10/15/2024 6:51 AM EDT [facility] MCH 36.7(H) 27.0 - 33.0 pg 10/15/2024 6:51 AM EDT [facility] MCHC 36.4(H) 32.0 - 36.0 g/dL 10/15/2024 6:51 AM EDT [facility] RDW 17.3(H) 11.0 - 15.0 % 10/15/2024 6:51 AM EDT [facility] Platelets 34(L) 140 - 400 10E3/uL 10/15/2024 6:51 AM EDT [facility] Comment:Specimen checked for clots. None detected. MPV 8.7 7.5 - 11.5 fL 10/15/2024 6:51 AM EDT [facility] Whole Blood 10/15/2024 6:08 AM EDT 10/15/2024 6:17 AM EDT us Eileen Schroeder MD, PhD LAB BLOOD ORDERABLES Final Result Performing Organization Address [facility] de Phone Number [facility] [address] [place] [address] * PRA-HLA Ab Screen (Cytotoxic) (10/15/2024 6:08 AM EDT) [facility] The request and specimen(s) for this test have been received and transported to the [facility] at [address] [place] [address]. The [facility] will report results directly to the client. 10/15/2024 6:42 AM EDT [facility] Comment:The request and spec imen(s) for this test have been received and transported to the [facility] at [address] [place] [address]. The [facility] will report results directly to the client. Serum 10/15/2024 6:08 AM EDT 10/15/2024 6:42 AM EDT us Cosmo Pacheco MD LAB BLOOD ORDERABLES Final Resul t Performing Organization Address [facility] Co de Phone Number [facility] [address] [place] [address] * LEFT HEART CATH (10/14/2024 2:09 PM EDT) 10/14/2024 11:4 7 AM EDT Narrative [facility] - 10/14/2024 9:27 PM EDT *[facility]* Cardiac Palliative Nurse [address] [place] [address] CATHETERIZATION LAB STUDY Patient: Julien Gilbert Age: [...] manner. 3. Right radial artery access. A [id number] [place] - Slender - .021 sheath was [...] + + !LV pressure s/d, ed !112/, 22, dP/fa=8482mp Hg/s! + + + !Aortic pressure s/d (m)!106/58 (75) ! + + + ATTESTATION: Dr. Matta was present for the entire procedure. Dr. Jay Quan was the initial author of this report. Prepared and electronically signed by Irving Matta MD [id number] Procedure Note Irving Matta MD - 10/14/2024 *[facility]* Cardiac Palliative Nurse [address] [place] [address] CATHETERIZATION LAB STUDY Patient: Julien Gilbert Age: [...] manner. 3. Right radial artery access. A [id number] Gl[place]ath - Slender - .021sheath was advanced [...] complications. Contrast: Omnipaque 350 25ml (total dose). [id number] 125ml (wasted). Radiation: Fluoroscopy time: 15min. Total [...] + + !LV pressure s/d, ed !112/, 22, dP/qe=8693rc Hg/s! + + + !Aortic pressure s/d (m)!106/58 (75) ! + + + ATTESTATION: Dr. Matta was present for the entire procedure. Dr. Jay Quan wasthe initial author of this report. Prepared and electronically signed by Irving Matta MD [id number] [place] [id number] Final Result [facility] * Transfuse Fresh Frozen Plasma Transfusion Rate: Per dept routine (10/14/2024 2:08 PM EDT) us Eleazar Nguyễn MD NURSING TREATMENT ORDER PAL - BLOOD ADMIN Final Result EXTERNAL * Transfuse Fresh Frozen Plasma Transfusion Rate: Per dept routine, 1 Units (10/14/2024 2:08 PM EDT) us Eleazar Nguyễn MD NURSING TREATMENT ORDER PAL - BLOOD ADMIN Final Result Performing Organization Address City/[facility]/ZIP Co de Phone Number EXTERNAL * Transfuse Platelets Transfusion Rate: Per dept routine (10/14/2024 12:43 PM EDT) us Eleazar Nguyễn MD NURSING TREATMENT ORDER PAL - BLOOD ADMIN Final Result EXTERNAL * Transfuse Platelets Transfusion Rate: Per dept routine, 1 Units (10/14/2024 12:43 PM EDT) us Eleazar Nguyễn MD NURSING TREATMENT ORDER PAL - BLOOD ADMIN Final Result Performing Organization Address City/[facility]/ZIP Co de Phone Number EXTERNAL * Antibody Screen (10/14/2024 8:21 AM EDT) [facility] Signature Antibody Screen Negative 10/14/2024 9:11 AM EDT [email or web address] Blood 10/14/2024 8:21 AM EDT 10/14/2024 8:33 AM EDT Narrative [email or web address] - 10/14/2024 9:26 AM EDT Testing performed by [facility] Transfusion Service us Eleazar Nguyễn MD BLOOD BANK TEST ORDERAB LES Final Result [facility] [address] * ABO/Rh (10/14/2024 8:21 AM EDT) ABO Grouping O 10/14/2024 8:55 AM EDT [facility] Rh Type Positive 10/14/2024 8:55 AM EDT [facility] Blood 10/14/2024 8:21 AM EDT 10/14/2024 8:33 AM EDT us Eleazar Nguyễn MD BLOOD BANK TEST ORDERAB LES Final Result Performing Organization Address [facility] Co de Phone Number [facility] [address] [facility]. [address] * (ABNORMAL) Protime-INR (10/14/2024 2:53 AM EDT) Protime 23.8(H) 12.1 - 15.1 seconds 10/14/2024 4:34 AM EDT [facility] INR 2.1(H) 0.9 - 1.1 10/14/2024 4:34 AM EDT [facility] Comment: RECOMMENDED THERAPEUTIC RANGES USING INR : Stable oral anticoagulant therapy: 2.0 - 3.0 Mechanical prosthetic heart valve: 2.5 - 3.5 Recurrent acute myocardial infarction: 2.5 - 3.5 Plasma 10/14/2024 2:53 AM EDT 10/14/2024 4:16 AM EDT us Eileen Schroeder MD, PhD LAB BLOOD ORDERABLES Final Result [facility] [address] [facility]. [address] * (ABNORMAL) Hepatic Function Panel (10/14/2024 2:53 AM EDT) Total Bilirubin 7.2(H) 0.0 - 1.5 mg/dL 10/14/2024 4:45 AM EDT [facility] Bilirubin, Direct 3.86(H) 0.00 - 0.40 mg/dL 10/14/2024 4:45 AM EDT [facility] AST 41(H) 13 - 39 U/L 10/14/2024 4:45 AM EDT [facility] ALT 22 7 - 52 U/L 10/14/2024 4:45 AM EDT [facility] Alkaline Phosphatase 119 36 - 125 U/L 10/14/2024 4:45 AM EDT [facility] Total Protein 4.6(L) 6.4 - 8.9 g/dL 10/14/2024 4:45 AM EDT [facility] Albumin 3.3(L) 3.5 - 5.7 g/dL 10/14/2024 4:45 AM EDT [facility] Bilirubin, Indirect 3.34(H) 0.00 - 1.10 mg/dL 10/14/2024 4:45 AM EDT [facility] Plasma 10/14/2024 2:53 AM EDT 10/14/2024 4:16 AM EDT Eileen Schroeder MD, PhD LAB BLOOD ORDERABLES Final Result Performing Organization Address [facility]/ZIP Co de Phone Number [facility] [address] * Magnesium (10/14/2024 2:53 AM EDT) Magnesium 1.9 1.5 - 2.5 mg/dL 10/14/2024 4:45 AM EDT [facility] Plasma 10/14/2024 2:53 AM EDT 10/14/2024 4:16 AM EDT Eileen Schroeder MD, PhD LAB BLOOD ORDERABLES Final Result Performing Organization Address City/[facility]/ZIP Co de Phone Number [facility] [address] * (ABNORMAL) Renal Function Panel w/EGFR (10/14/2024 2:53 AM EDT) Sodium 136 133 - 146 mmol/L 10/14/2024 4:45 AM EDT [facility] Potassium 3.5 3.5 - 5.3 mmol/L 10/14/2024 4:45 AM EDT [facility] Chloride 107 98 - 110 mmol/L 10/14/2024 4:45 AM EDT [facility] CO2 16(L) 21 - 33 mmol/L 10/14/2024 4:45 AM EDT [facility] Anion Gap 13 3 - 16 mmol/L 10/14/2024 4:45 AM EDT [facility] BUN 55(H) 7 - 25 mg/dL 10/14/2024 4:45 AM EDT [facility] Creatinine 3.01(H) 0.60 - 1.30 mg/dL 10/14/2024 4:45 AM EDT [facility] Glucose 95 70 - 100 mg/dL 10/14/2024 4:45 AM EDT [facility] Calcium 8.5(L) 8.6 - 10.3 mg/dL 10/14/2024 4:45 AM EDT [facility] Phosphorus 4.4 2.1 - 4.7 mg/dL 10/14/2024 4:45 AM EDT [facility] Albumin 3.3(L) 3.5 - 5.7 g/dL 10/14/2024 4:45 AM EDT [facility] Osmolality, Calculated 297 278 - 305 mOsm/kg 10/14/2024 4:45 AM EDT [facility] EGFR 26 10/14/2024 4:45 AM EDT [facility] Comment:As of 2021, the estimated GFR [...] MD, PhD LAB BLOOD ORDERABLES Final Result [facility] [address] [place] [address], [facility] * (ABNORMAL) CBC (10/14/2024 2:53 AM EDT) WBC 5.5 3.8 - 10.8 10E3/uL 10/14/2024 5:00 AM EDT [facility] RBC 2.09(L) 4.20 - 5.80 10E6/uL 10/14/2024 5:00 AM EDT [facility] Hemoglobin 7.6(L) 13.2 - 17.1 g/dL 10/14/2024 5:00 AM EDT [facility] Hematocrit 21.3(L) 38.5 - 50.0 % 10/14/2024 5:00 AM EDT [facility] MCV 101.7(H) 80.0 - 100.0 fL 10/14/2024 5:00 AM EDT [facility] MCH 36.3(H) 27.0 - 33.0 pg 10/14/2024 5:00 AM EDT [facility] MCHC 35.7 32.0 - 36.0 g/dL 10/14/2024 5:00 AM EDT [facility] RDW 17.6(H) 11.0 - 15.0 % 10/14/2024 5:00 AM EDT [facility] Platelets 35(L) 140 - 400 10E3/uL 10/14/2024 5:00 AM EDT [facility] Comment: Specimen checked for clots. None detected. Slide Reviewed for PLT Clumps. None Seen. MPV 8.5 7.5 - 11.5 fL 10/14/2024 5:00 AM EDT [facility] Whole Blood 10/14/2024 2:53 AM EDT 10/14/2024 4:17 AM EDT Eileen Schroeder MD, PhD LAB BLOOD ORDERABLES Final Result [facility] [address] [place] [address], [facility] * Cardiac Cath Documents Scan (10/14/2024 [...] - 15.1 seconds 10/13/2024 6:12 AM EDT [facility] INR 2.1(H) 0.9 - 1.1 10/13/2024 6:12 AM EDT [facility] Comment: RECOMMENDED THERAPEUTIC RANGES USING INR : Stable oral anticoagulant therapy: 2.0 - 3.0 Mechanical prosthetic heart valve: 2.5 - 3.5 Recurrent acute myocardial infarction: 2.5 - 3.5 Plasma 10/13/2024 5:35 AM EDT 10/13/2024 5:52 AM EDT Eileen Schroeder MD, PhD LAB BLOOD ORDERABLES Final Result [facility] [address] [place] [id number] * (ABNORMAL) Hepatic Function Panel (10/13/2024 5:35 AM EDT) Total Bilirubin 6.5(H) 0.0 - 1.5 mg/dL 10/13/2024 6:30 AM EDT [facility] Bilirubin, Direct 3.53(H) 0.00 - 0.40 mg/dL 10/13/2024 6:30 AM EDT [facility] AST 42(H) 13 - 39 U/L 10/13/2024 6:30 AM EDT [facility] ALT 19 7 - 52 U/L 10/13/2024 6:30 AM EDT [facility] Alkaline Phosphatase 108 36 - 125 U/L 10/13/2024 6:30 AM EDT [facility] Total Protein 4.4(L) 6.4 - 8.9 g/dL 10/13/2024 6:30 AM EDT [facility] Albumin 3.1(L) 3.5 - 5.7 g/dL 10/13/2024 6:30 AM EDT [facility] Bilirubin, Indirect 2.97(H) 0.00 - 1.10 mg/dL 10/13/2024 6:30 AM EDT [facility] Plasma 10/13/2024 5:35 AM EDT 10/13/2024 5:52 AM EDT Eileen Schroeder MD, PhD LAB BLOOD ORDERABLES Final Result [facility] [address] [place], [place] [id number] * Magnesium (10/13/2024 5:35 AM EDT) Magnesium 2.0 1.5 - 2.5 mg/dL 10/13/2024 6:30 AM EDT [facility] Plasma 10/13/2024 5:35 AM EDT 10/13/2024 5:52 AM EDT Eileen Schroeder MD, PhD LAB BLOOD ORDERABLES Final Result [facility] [address] [place] [address], [facility] * (ABNORMAL) Renal Function Panel w/EGFR (10/13/2024 5:35 AM EDT) Sodium 134 133 - 146 mmol/L 10/13/2024 6:30 AM EDT [facility] Potassium 3.7 3.5 - 5.3 mmol/L 10/13/2024 6:30 AM EDT [facility] Chloride 109 98 - 110 mmol/L 10/13/2024 6:30 AM EDT [facility] CO2 14(L) 21 - 33 mmol/L 10/13/2024 6:30 AM EDT [facility] Anion Gap 11 3 - 16 mmol/L 10/13/2024 6:30 AM EDT [facility] BUN 54(H) 7 - 25 mg/dL 10/13/2024 6:30 AM EDT [facility] Creatinine 2.99(H) 0.60 - 1.30 mg/dL 10/13/2024 6:30 AM EDT [facility] Glucose 116(H) 70 - 100 mg/dL 10/13/2024 6:30 AM EDT [facility] Calcium 8.3(L) 8.6 - 10.3 mg/dL 10/13/2024 6:30 AM EDT [facility] Phosphorus 4.5 2.1 - 4.7 mg/dL 10/13/2024 6:30 AM EDT [facility] Albumin 3.1(L) 3.5 - 5.7 g/dL 10/13/2024 6:30 AM EDT [facility] Osmolality, Calculated 294 278 - 305 mOsm/kg 10/13/2024 6:30 AM EDT [facility] EGFR 26 10/13/2024 6:30 AM EDT [facility] Comment:As of 2021, the estimated GFR [...] MD, PhD LAB BLOOD ORDERABLES Final Result [facility] [address] [place] [address], [facility] * (ABNORMAL) CBC (10/13/2024 5:35 AM EDT) WBC 4.7 3.8 - 10.8 10E3/uL 10/13/2024 6:22 AM EDT [facility] RBC 2.06(L) 4.20 - 5.80 10E6/uL 10/13/2024 6:22 AM EDT [facility] Hemoglobin 7.4(L) 13.2 - 17.1 g/dL 10/13/2024 6:22 AM EDT [facility] Hematocrit 21.7(L) 38.5 - 50.0 % 10/13/2024 6:22 AM EDT [facility] MCV 105.4(H) 80.0 - 100.0 fL 10/13/2024 6:22 AM EDT [facility] MCH 35.9(H) 27.0 - 33.0 pg 10/13/2024 6:22 AM EDT [facility] MCHC 34.0 32.0 - 36.0 g/dL 10/13/2024 6:22 AM EDT [facility] RDW 18.5(H) 11.0 - 15.0 % 10/13/2024 6:22 AM EDT [facility] Platelets 35(L) 140 - 400 10E3/uL 10/13/2024 6:22 AM EDT [facility] Comment: CNV Specimen checked for clots. None detected. MPV 8.4 7.5 - 11.5 fL 10/13/2024 6:22 AM EDT [facility] Whole Blood 10/13/2024 5:35 AM EDT 10/13/2024 5:53 AM EDT us Eileen Schroeder MD, PhD LAB BLOOD ORDERABLES Final Result Performing Organization Address [facility] Co de Phone Number [facility] [address] [facility]. [address] * (ABNORMAL) Ammonia (10/13/2024 5:35 AM EDT) Ammonia 203(HH) 27 - 90 ug/dL 10/13/2024 7:16 AM EDT [facility] Comment: HEMOLYSIS EVIDENT. RESULTS MAY BE INFLUENCED. Critical Result [id number] Called to and read back by: KEY MELO RN at: 10/13/2024 07:15:55 by:NISREEN Plasma 10/13/2024 5:35 AM EDT 10/13/2024 6:19 AM EDT us Ehun Davon DO LAB BLOOD ORDERABLES Final Resul t Performing Organization Address [facility] Co de Phone Number [facility] [address] [facility]. [address] * CARISA Rhythm Strip - Scan (10/12/2024 10:30 PM EDT) us Scanning Uchhim SCAN DOCS - NO RESULTS Final Res ult * (ABNORMAL) Protime-INR (10/12/2024 5:44 AM EDT) Protime 25.7(H) 12.1 - 15.1 seconds 10/12/2024 6:12 AM EDT [facility] INR 2.3(H) 0.9 - 1.1 10/12/2024 6:12 AM EDT [facility] Comment: RECOMMENDED THERAPEUTIC RANGES USING INR : Stable oral anticoagulant therapy: 2.0 - 3.0 Mechanical prosthetic heart valve: 2.5 - 3.5 Recurrent acute myocardial infarction: 2.5 - 3.5 Plasma 10/12/2024 5:44 AM EDT 10/12/2024 5:58 AM EDT Eileen Schroeder MD, PhD LAB BLOOD ORDERABLES Final Result Performing Organization Address [facility] Co de Phone Number [facility] [address] [facility]. [address] * (ABNORMAL) Hepatic Function Panel (10/12/2024 5:44 AM EDT) Total Bilirubin 6.5(H) 0.0 - 1.5 mg/dL 10/12/2024 6:29 AM EDT [facility] Bilirubin, Direct 3.64(H) 0.00 - 0.40 mg/dL 10/12/2024 6:29 AM EDT [facility] AST 40(H) 13 - 39 U/L 10/12/2024 6:29 AM EDT [facility] ALT 19 7 - 52 U/L 10/12/2024 6:29 AM EDT [facility] Alkaline Phosphatase 99 36 - 125 U/L 10/12/2024 6:29 AM EDT [facility] Total Protein 4.2(L) 6.4 - 8.9 g/dL 10/12/2024 6:29 AM EDT [facility] Albumin 3.1(L) 3.5 - 5.7 g/dL 10/12/2024 6:29 AM EDT [facility] Bilirubin, Indirect 2.86(H) 0.00 - 1.10 mg/dL 10/12/2024 6:29 AM EDT [facility] Plasma 10/12/2024 5:44 AM EDT 10/12/2024 5:58 AM EDT us Eileen Schroeder MD, PhD LAB BLOOD ORDERABLES Final Result Performing Organization Address City/[facility]/ZIP Co de Phone Number [facility] [address] * Magnesium (10/12/2024 5:44 AM EDT) Magnesium 1.9 1.5 - 2.5 mg/dL 10/12/2024 6:29 AM EDT [facility] Plasma 10/12/2024 5:44 AM EDT 10/12/2024 5:58 AM EDT us Eileen Schroeder MD, PhD LAB BLOOD ORDERABLES Final Result [facility] [address] * (ABNORMAL) Renal Function Panel w/EGFR (10/12/2024 5:44 AM EDT) Sodium 135 133 - 146 mmol/L 10/12/2024 6:29 AM EDT [facility] Potassium 3.7 3.5 - 5.3 mmol/L 10/12/2024 6:29 AM EDT [facility] Chloride 109 98 - 110 mmol/L 10/12/2024 6:29 AM EDT [facility] CO2 17(L) 21 - 33 mmol/L 10/12/2024 6:29 AM EDT [facility] Anion Gap 9 3 - 16 mmol/L 10/12/2024 6:29 AM EDT [facility] BUN 52(H) 7 - 25 mg/dL 10/12/2024 6:29 AM EDT [facility] Creatinine 2.94(H) 0.60 - 1.30 mg/dL 10/12/2024 6:29 AM EDT [facility] Glucose 121(H) 70 - 100 mg/dL 10/12/2024 6:29 AM EDT [facility] Calcium 8.5(L) 8.6 - 10.3 mg/dL 10/12/2024 6:29 AM EDT [facility] Phosphorus 4.6 2.1 - 4.7 mg/dL 10/12/2024 6:29 AM EDT [facility] Albumin 3.1(L) 3.5 - 5.7 g/dL 10/12/2024 6:29 AM EDT [facility] Osmolality, Calculated 295 278 - 305 mOsm/kg 10/12/2024 6:29 AM EDT [facility] EGFR 27 10/12/2024 6:29 AM EDT [facility] Comment:As of 2021, the estimated GFR [...] MD, PhD LAB BLOOD ORDERABLES Final Result [facility] [address] [place] [address], [facility] * (ABNORMAL) CBC (10/12/2024 5:44 AM EDT) WBC 3.3(L) 3.8 - 10.8 10E3/uL 10/12/2024 7:06 AM EDT [facility] RBC 1.95(L) 4.20 - 5.80 10E6/uL 10/12/2024 7:06 AM EDT [facility] Hemoglobin 7.2(L) 13.2 - 17.1 g/dL 10/12/2024 7:06 AM EDT [facility] Hematocrit 19.7(L) 38.5 - 50.0 % 10/12/2024 7:06 AM EDT [facility] MCV 101.2(H) 80.0 - 100.0 fL 10/12/2024 7:06 AM EDT [facility] MCH 37.0(H) 27.0 - 33.0 pg 10/12/2024 7:06 AM EDT [facility] MCHC 36.5(H) 32.0 - 36.0 g/dL 10/12/2024 7:06 AM EDT [facility] RDW 17.6(H) 11.0 - 15.0 % 10/12/2024 7:06 AM EDT [facility] Platelets 30(L) 140 - 400 10E3/uL 10/12/2024 7:06 AM EDT [facility] Comment: Specimen checked for clots. None detected. Slide Reviewed for PLT Clumps. None Seen. Platelet Estimate Decreased 10/12/2024 7:06 AM EDT [facility] MPV 8.3 7.5 - 11.5 fL 10/12/2024 7:06 AM EDT [facility] Whole Blood 10/12/2024 5:44 AM EDT 10/12/2024 5:58 AM EDT Narrative [facility] - 10/12/2024 7:06 AM EDT Peripheral blood smear was scanned per review criteria approved by the laboratory behavioral medical director. Eileen Schroeder MD, PhD LAB BLOOD ORDERABLES Final Result [facility] [address] * CARISA Rhythm Strip - Scan (10/11/2024 10:04 PM EDT) us Scanning Uchhim SCAN DOCS - NO RESULTS Final Res ult * (ABNORMAL) Protime-INR (10/11/2024 3:02 AM EDT) Protime 26.8(H) 12.1 - 15.1 seconds 10/11/2024 3:30 AM EDT [facility] INR 2.4(H) 0.9 - 1.1 10/11/2024 3:30 AM EDT [facility] Comment: RECOMMENDED THERAPEUTIC RANGES USING INR : Stable oral anticoagulant therapy: 2.0 - 3.0 Mechanical prosthetic heart valve: 2.5 - 3.5 Recurrent acute myocardial infarction: 2.5 - 3.5 Plasma 10/11/2024 3:02 AM EDT 10/11/2024 3:08 AM EDT us Eileen Schroeder MD, PhD LAB BLOOD ORDERABLES Final Result Performing Organization Address [facility] Co de Phone Number [facility] [address] [facility]. [address] * (ABNORMAL) Hepatic Function Panel (10/11/2024 3:02 AM EDT) Total Bilirubin 7.3(H) 0.0 - 1.5 mg/dL 10/11/2024 3:38 AM EDT [facility] Bilirubin, Direct 3.85(H) 0.00 - 0.40 mg/dL 10/11/2024 3:38 AM EDT [facility] AST 39 13 - 39 U/L 10/11/2024 3:38 AM EDT [facility] ALT 20 7 - 52 U/L 10/11/2024 3:38 AM EDT [facility] Alkaline Phosphatase 88 36 - 125 U/L 10/11/2024 3:38 AM EDT [facility] Total Protein 4.5(L) 6.4 - 8.9 g/dL 10/11/2024 3:38 AM EDT [facility] Albumin 3.3(L) 3.5 - 5.7 g/dL 10/11/2024 3:38 AM EDT [facility] Bilirubin, Indirect 3.45(H) 0.00 - 1.10 mg/dL 10/11/2024 3:38 AM EDT [facility] Plasma 10/11/2024 3:02 AM EDT 10/11/2024 3:08 AM EDT Eileen Schroeder MD, PhD LAB BLOOD ORDERABLES Final Result Performing Organization Address [facility]/ZIP Co de Phone Number [facility] [address] [facility]. [address] * Magnesium (10/11/2024 3:02 AM EDT) Magnesium 2.0 1.5 - 2.5 mg/dL 10/11/2024 3:38 AM EDT [facility] Plasma 10/11/2024 3:02 AM EDT 10/11/2024 3:08 AM EDT us Eileen Schroeder MD, PhD LAB BLOOD ORDERABLES Final Result [facility] [address] * (ABNORMAL) Renal Function Panel w/EGFR (10/11/2024 3:02 AM EDT) Sodium 134 133 - 146 mmol/L 10/11/2024 3:38 AM EDT [facility] Potassium 3.6 3.5 - 5.3 mmol/L 10/11/2024 3:38 AM EDT [facility] Chloride 108 98 - 110 mmol/L 10/11/2024 3:38 AM EDT [facility] CO2 16(L) 21 - 33 mmol/L 10/11/2024 3:38 AM EDT [facility] Anion Gap 10 3 - 16 mmol/L 10/11/2024 3:38 AM EDT [facility] BUN 49(H) 7 - 25 mg/dL 10/11/2024 3:38 AM EDT [facility] Creatinine 2.77(H) 0.60 - 1.30 mg/dL 10/11/2024 3:38 AM EDT [facility] Glucose 112(H) 70 - 100 mg/dL 10/11/2024 3:38 AM EDT [facility] Calcium 8.9 8.6 - 10.3 mg/dL 10/11/2024 3:38 AM EDT [facility] Phosphorus 3.5 2.1 - 4.7 mg/dL 10/11/2024 3:38 AM EDT [facility] Albumin 3.3(L) 3.5 - 5.7 g/dL 10/11/2024 3:38 AM EDT [facility] Osmolality, Calculated 292 278 - 305 mOsm/kg 10/11/2024 3:38 AM EDT [facility] EGFR 29 10/11/2024 3:38 AM EDT [facility] Comment:As of 2021, the estimated GFR [...] MD, PhD LAB BLOOD ORDERABLES Final Result [facility] [address] [place] [id number], [facility] * (ABNORMAL) CBC (10/11/2024 3:02 AM EDT) WBC 4.0 3.8 - 10.8 10E3/uL 10/11/2024 3:55 AM EDT [facility] RBC 2.11(L) 4.20 - 5.80 10E6/uL 10/11/2024 3:55 AM EDT [facility] Hemoglobin 7.7(L) 13.2 - 17.1 g/dL 10/11/2024 3:55 AM EDT [facility] Hematocrit 21.2(L) 38.5 - 50.0 % 10/11/2024 3:55 AM EDT [facility] MCV 100.5(H) 80.0 - 100.0 fL 10/11/2024 3:55 AM EDT [facility] MCH 36.4(H) 27.0 - 33.0 pg 10/11/2024 3:55 AM EDT [facility] MCHC 36.2(H) 32.0 - 36.0 g/dL 10/11/2024 3:55 AM EDT [facility] RDW 17.9(H) 11.0 - 15.0 % 10/11/2024 3:55 AM EDT [facility] Platelets 32(L) 140 - 400 10E3/uL 10/11/2024 3:55 AM EDT [facility] Comment: Specimen checked for clots. None detected. Slide Reviewed for PLT Clumps. None Seen. Platelet Estimate Decreased 10/11/2024 3:55 AM EDT [facility] MPV 8.1 7.5 - 11.5 fL 10/11/2024 3:55 AM EDT [facility] Whole Blood 10/11/2024 3:02 AM EDT 10/11/2024 3:08 AM EDT Narrative [facility] - 10/11/2024 3:55 AM EDT Peripheral blood smear was scanned per review criteria approved by the laboratory behavioral medical director. us Eileen Schroeder MD, PhD LAB BLOOD ORDERABLES Final Result [facility] [address] [facility]. [address] * Vancomycin, random (10/11/2024 3:02 AM EDT) Vancomycin Random 13.4 ug/mL 10/11/2024 3:37 AM EDT [facility] Comment:Reference range not established for this test. Plasma 10/11/2024 3:02 AM EDT 10/11/2024 3:08 AM EDT us Jodi FreireD LAB BLOOD ORDERABLES Final Result Performing Organization Address [facility]/ZIP Co de Phone Number [facility] [address] * IR Paracentesis incl imaging guide [...] diagnostic and therapeutic paracentesis. Bakari Wahl CNP, [employer] Professor Procedure and Findings: The procedure was [...] Using ultrasound guidance, a 10 cm, 5-F [employer] Centesis catheter was placed into the right lower quadrant peritoneal fluid and fluid was aspirated. Approximately 8000 mL of clear yellow fluid were removed. The drainage catheter was removed and the catheter site was dressed in the usual fashion. There were no immediate complications. Procedure Note Bakari Walh CNP - 10/10/2024 Procedure: Paracentesis, ultrasound-guided Performed [...] for diagnostic andtherapeutic paracentesis. Bakari Wahl CNP, [employer] Professor Procedure and Findings: The procedure was [...] Using ultrasound guidance, a 10 cm, 5-F [employer] Centesis catheter was placedinto the right lower [...] scan (10/10/2024 3:08 PM EDT) us Scanning Uchhi SCAN DOCS - NO RESULTS Final Res ult * (ABNORMAL) Body fluid cell count (10/10/2024 1:51 PM EDT) Color, Fluid Yellow(A) Colorless, Pale Yellow 10/10/2024 5:29 PM EDT [facility] Clarity, Fluid Clear 10/10/2024 5:29 PM EDT [facility] Neutrophil %, Fluid 9 % 10/10/2024 5:29 PM EDT [facility] Lymphocytes %, Fluid 13 % 10/10/2024 5:29 PM EDT [facility] Mesothelial %, Fluid 6 % 10/10/2024 5:29 PM EDT [facility] Macrophage %, Fluid 72 % 10/10/2024 5:29 PM EDT [facility] RBC, Fluid 2,662 /uL 10/10/2024 4:41 PM EDT [facility] Total Nucleated Cells, Fluid 89 /uL 10/10/2024 4:41 PM EDT [facility] Comment:Total Nucleated Cell s represent WBCs and other nucleated cells in the fluid such as lining cells. Ascitic Fluid ABDOMEN / Unknown 1:51 PM EDT 10/10/2024 3:56 PM EDT Gerri Peterson MD BODY FLUIDS AND STOOLS ORDERABL ES Final Result Performing Organization Address [facility] Co de Phone Number [facility] [address] * Body Fluid Culture plus Stain (10/10/2024 1:51 PM EDT) Gram Stain Result Cytospin Results: [facility] Gram Stain Result Polymorphonuclear Leukocytes Seen; [facility] Gram Stain Result No Organisms Seen; [facility] Culture Result No Growth After 5 Days [facility] Fluid ABDOMEN / Unknown 10/10/2024 1:51 PM EDT 10/10/2024 3:56 PM EDT Gerri Peterson MD MICROBIOLOGY - GENERAL ORDERABL ES Final Result [facility] [address] * UPPER GI ENDOSCOPY (10/10/2024 11:48 AM EDT) 10/10/2024 11:4 8 AM EDT Narrative [facility] - 10/10/2024 12:34 PM EDT [id number] Procedure Date: 10/10/2024 11:48 AM Patient Name: Julien Gilbert Date of : 1985 Admit Type: Inpatient Age: 39 Gender: Male Note Status: Finalized Attending MD: Lino Soto MD, [id number] Procedure: Upper GI endoscopy Indications: Gastroesopahgeal variceal [...] verified by the physician, the nurse, the offset lithographic press setter and the shop service technician in the pre-procedure area in the [...] to hypotension Procedure Code(s): --- Professional --- 02543, GC, Esophagogastroduodenoscopy, flexible, transoral; diagnostic, including collection of specimen(s) by brushing or washing, when performed (separate procedure) Diagnosis Code(s): --- Professional --- I85.00, Esophageal varices without bleeding K76.6, Portal hypertension K31.89, Other diseases of stomach and duodenum CPT copyright 2022 [employer]. All rights reserved. The codes documented in this report are preliminary and upon remote medical coder review may be revised to meet current [...] In: 12:10:16 PM Scope Out: 12:17:[address] [place] [address], [facility] us Provider Not In System PROCEDURE/MINOR SURGICAL ORDERABLES Final Result Performing Organization Address [facility] Co de Phone Number [facility] * (ABNORMAL) Protime-INR (10/10/2024 5:23 AM EDT) Protime 23.9(H) 12.1 - 15.1 seconds 10/10/2024 6:11 AM EDT [facility] INR 2.1(H) 0.9 - 1.1 10/10/2024 6:11 AM EDT [facility] Comment: RECOMMENDED THERAPEUTIC RANGES USING INR : Stable oral anticoagulant therapy: 2.0 - 3.0 Mechanical prosthetic heart valve: 2.5 - 3.5 Recurrent acute myocardial infarction: 2.5 - 3.5 Plasma 10/10/2024 5:23 AM EDT 10/10/2024 5:50 AM EDT us Eileen Schroeder MD, PhD LAB BLOOD ORDERABLES Final Result Performing Organization Address [facility] Co de Phone Number [facility] [address] [place] [address] * (ABNORMAL) Hepatic Function Panel (10/10/2024 5:23 AM EDT) Total Bilirubin 8.6(H) 0.0 - 1.5 mg/dL 10/10/2024 6:21 AM EDT [facility] Bilirubin, Direct 4.65(H) 0.00 - 0.40 mg/dL 10/10/2024 6:21 AM EDT [facility] AST 40(H) 13 - 39 U/L 10/10/2024 6:21 AM EDT [facility] ALT 22 7 - 52 U/L 10/10/2024 6:21 AM EDT [facility] Alkaline Phosphatase 118 36 - 125 U/L 10/10/2024 6:21 AM EDT [facility] Total Protein 4.6(L) 6.4 - 8.9 g/dL 10/10/2024 6:21 AM EDT [facility] Albumin 3.3(L) 3.5 - 5.7 g/dL 10/10/2024 6:21 AM EDT [facility] Bilirubin, Indirect 3.95(H) 0.00 - 1.10 mg/dL 10/10/2024 6:21 AM EDT [facility] Plasma 10/10/2024 5:23 AM EDT 10/10/2024 5:50 AM EDT us Eileen Schroeder MD, PhD LAB BLOOD ORDERABLES Final Result Performing Organization Address City/[facility]/ZIP Co de Phone Number [facility] [address] * Magnesium (10/10/2024 5:23 AM EDT) Magnesium 1.9 1.5 - 2.5 mg/dL 10/10/2024 6:21 AM EDT [facility] Plasma 10/10/2024 5:23 AM EDT 10/10/2024 5:50 AM EDT Eileen Schroeder MD, PhD LAB BLOOD ORDERABLES Final Result [facility] [address] * (ABNORMAL) Renal Function Panel w/EGFR (10/10/2024 5:23 AM EDT) Sodium 135 133 - 146 mmol/L 10/10/2024 6:21 AM EDT [facility] Potassium 3.6 3.5 - 5.3 mmol/L 10/10/2024 6:21 AM EDT [facility] Chloride 108 98 - 110 mmol/L 10/10/2024 6:21 AM EDT [facility] CO2 17(L) 21 - 33 mmol/L 10/10/2024 6:21 AM EDT [facility] Anion Gap 10 3 - 16 mmol/L 10/10/2024 6:21 AM EDT [facility] BUN 53(H) 7 - 25 mg/dL 10/10/2024 6:21 AM EDT [facility] Creatinine 2.85(H) 0.60 - 1.30 mg/dL 10/10/2024 6:21 AM EDT [facility] Glucose 113(H) 70 - 100 mg/dL 10/10/2024 6:21 AM EDT [facility] Calcium 9.0 8.6 - 10.3 mg/dL 10/10/2024 6:21 AM EDT [facility] Phosphorus 3.3 2.1 - 4.7 mg/dL 10/10/2024 6:21 AM EDT [facility] Albumin 3.3(L) 3.5 - 5.7 g/dL 10/10/2024 6:21 AM T [facility] Osmolality, Calculated 295 278 - 305 mOsm/kg 10/10/2024 6:21 AM EDT [facility] EGFR 28 10/10/2024 6:21 AM EDT [facility] Comment:As of 2021, the estimated GFR [...] MD, PhD LAB BLOOD ORDERABLES Final Result [facility] [facility] [address] [place], [place] [address] * (ABNORMAL) CBC (10/10/2024 5:23 AM EDT) WBC 5.1 3.8 - 10.8 10E3/uL 10/10/2024 6:14 AM EDT [facility] RBC 2.04(L) 4.20 - 5.80 10E6/uL 10/10/2024 6:14 AM EDT [facility] Hemoglobin 7.3(L) 13.2 - 17.1 g/dL 10/10/2024 6:14 AM EDT [facility] Hematocrit 20.6(L) 38.5 - 50.0 % 10/10/2024 6:14 AM EDT [facility] MCV 101.2(H) 80.0 - 100.0 fL 10/10/2024 6:14 AM EDT [facility] MCH 36.0(H) 27.0 - 33.0 pg 10/10/2024 6:14 AM EDT [facility] MCHC 35.5 32.0 - 36.0 g/dL 10/10/2024 6:14 AM EDT [facility] RDW 17.6(H) 11.0 - 15.0 % 10/10/2024 6:14 AM EDT [facility] Platelets 39(L) 140 - 400 10E3/uL 10/10/2024 6:14 AM EDT [facility] Comment: CNV Specimen checked for clots. None detected. MPV 9.8 7.5 - 11.5 fL 10/10/2024 6:14 AM EDT [facility] Whole Blood 10/10/2024 5:23 AM EDT 10/10/2024 5:51 AM EDT us Eileen Schroeder MD, PhD LAB BLOOD ORDERABLES Final Result Performing Organization Address City/[facility]/ZIP Co de Phone Number [address] * Vancomycin, random (10/10/2024 5:23 AM EDT) Vancomycin Random 16.4 ug/mL 10/10/2024 6:22 AM EDT [facility] Comment:Reference range not established for this test. Plasma 10/10/2024 5:23 AM EDT 10/10/2024 5:51 AM EDT us Jodi FreireD LAB BLOOD ORDERABLES Final Result Performing Organization Address [facility] Co de Phone Number [address] * ECHO STRESS W/ CONTRAST (10/09/2024 4:37 PM EDT) Anatomical Region Laterality Modality Chest Ultrasound 10/09/2024 2:40 PM EDT Narrative 10/09/2024 6:45 PM EDT * [facility]* [address] [place] [address] Stress Echocardiogram Patient: Julien Gilbert Room: 8142 Height: 76in MR Number: [id number] : 1985 Weight: 262lb Account: [id number] Gender: M BP: 125 / 77 Study Date: 10/09/2024 Age: 39 BSA: 2.48m^2 Referring physician: Gerri Peterson Interpreting physician: Tonya Henriquez MD FELLOW Lisa Jha MD PERFORMING Tonya Henriquez MD [employer] MACHINE OPERATOR Soco Gan ORDERING Gerri Peterson REFERRING Gerri [...] was augmented by the addition of hand cloth examiner hand and leg lifts. The infusion was terminated [...] at baseline or with provocation, shows no dtcij-tl-qoph atrial level shunt. - Pulmonary arteries: Systolic [...] at baseline or with provocation, shows no znxca-oh-srlb atrial level shunt. Pulmonary artery: - Systolic [...] at baseline or with provocation, shows no zgrnt-iy-xumr atrial level shunt. Pericardium: - There is [...] peak heart rate and blood pressure was [id number] Hg/min. Stress testing did not produce any [...] Reviewed and confirmed by Tonya Henriquez MD [id number] Procedure Note Tonya Henriquez MD - 10/09/2024 * [facility]* [address] [place] [id number] Stress Echocardiogram Patient: Julien Gilbert Room: 8142 Height: 76in MR Number: [id number] : 1985 Weight: 262lb Account: [id number] Gender: M BP: 125 / 77 Study Date: 10/09/2024 Age: 39 BSA: 2.48m^2 Referring physician: Gerri ePterson Interpreting physician: Tonya Henriquez MD FELLOW Lisa Jha MD PERFORMING Tonya Henriquez MD [employer] MACHINE OPERATOR Soco Gan ORDERING Gerri Peterson REFERRING Gerri Peterson Sharice N ADMITTING Angie Blanchard Procedure:STRESS ECHO - PHARMACOLOGIC Order: Indications: Pre-Operative Clearance (Z01.818). PMH: EtOH Use Disorder. Risk factors: Hypertension. Dyslipidemia. Study data: Height: 76in. 193cm. Weight: 262lb. 118.8kg. The previousstudy was not available, so comparison was made to the report of 07/15/2024. Study status: Routine. Procedure[facility]. Intravenous [...] was augmented by the addition of hand cloth examiner hand and leg lifts. The infusion was terminated [...] at baseline or with provocation, shows no ejfhu-lb-gwxb atrial level shunt. - Pulmonary arteries: Systolic [...] study at baseline or with provocation, showsno hfaue-kc-cmxt atrial level shunt. Pulmonary artery: - Systolic [...] at baseline or with provocation, shows no pgmav-eo-upuw atrial level shunt. Pericardium: - There is [...] heart rate). The maximal predicted heart rate [id number]. The target heart rate was 152bpm. The target heart rate was achieved.The heart rate response to stress is normal. There is a normal resting blood pressure with an appropriate response to stress. The rate-pressureproduct for the peak heart rate and blood pressure was 26265cg Hg/min. Stress testing did not produce any [...] Reviewed and confirmed by Tonya Henriquez MD [id number] us Gerri Peterson MD CV ECHO ORDERABLES Final Result * (ABNORMAL) Renal Function Panel w/EGFR, STAT (10/09/2024 1:05 PM EDT) Sodium 134 133 - 146 mmol/L 10/09/2024 2:10 PM EDT [facility] Potassium 3.7 3.5 - 5.3 mmol/L 10/09/2024 2:10 PM EDT [facility] Chloride 105 98 - 110 mmol/L 10/09/2024 2:10 PM EDT [facility] CO2 17(L) 21 - 33 mmol/L 10/09/2024 2:10 PM EDT [facility] Anion Gap 12 3 - 16 mmol/L 10/09/2024 2:10 PM EDT [facility] BUN 53(H) 7 - 25 mg/dL 10/09/2024 2:10 PM EDT [facility] Creatinine 2.89(H) 0.60 - 1.30 mg/dL 10/09/2024 2:10 PM EDT [facility] Glucose 108(H) 70 - 100 mg/dL 10/09/2024 2:10 PM EDT [facility] Calcium 9.3 8.6 - 10.3 mg/dL 10/09/2024 2:10 PM EDT [facility] Phosphorus 3.4 2.1 - 4.7 mg/dL 10/09/2024 2:10 PM EDT [facility] Albumin 3.6 3.5 - 5.7 g/dL 10/09/2024 2:10 PM EDT [facility] Osmolality, Calculated 293 278 - 305 mOsm/kg 10/09/2024 2:10 PM EDT [facility] EGFR 27 10/09/2024 2:10 PM EDT [facility] Comment:As of 2021, the estimated GFR [...] MD, PhD LAB BLOOD ORDERABLES Final Result [facility] [address] [facility]. [place] [address] * (ABNORMAL) Renal Function Panel w/EGFR, STAT (10/09/2024 8:14 AM EDT) Sodium 134 133 - 146 mmol/L 10/09/2024 8:47 AM EDT [facility] Potassium 3.4(L) 3.5 - 5.3 mmol/L 10/09/2024 8:47 AM EDT [facility] Chloride 107 98 - 110 mmol/L 10/09/2024 8:47 AM EDT [facility] CO2 17(L) 21 - 33 mmol/L 10/09/2024 8:47 AM EDT [facility] Anion Gap 10 3 - 16 mmol/L 10/09/2024 8:47 AM EDT [facility] BUN 54(H) 7 - 25 mg/dL 10/09/2024 8:47 AM EDT [facility] Creatinine 3.04(H) 0.60 - 1.30 mg/dL 10/09/2024 8:47 AM EDT [facility] Glucose 124(H) 70 - 100 mg/dL 10/09/2024 8:47 AM EDT [facility] Calcium 9.0 8.6 - 10.3 mg/dL 10/09/2024 8:47 AM EDT [facility] Phosphorus 3.5 2.1 - 4.7 mg/dL 10/09/2024 8:47 AM EDT [facility] Albumin 3.4(L) 3.5 - 5.7 g/dL 10/09/2024 8:47 AM T [facility] Osmolality, Calculated 294 278 - 305 mOsm/kg 10/09/2024 8:47 AM EDT [facility] EGFR 26 10/09/2024 8:47 AM EDT [facility] Comment:As of 2021, the estimated GFR [...] 8:14 AM EDT 10/09/2024 8:19 AM EDT Gerri Peterson MD LAB BLOOD ORDERABLES Final Resu lt [facility] [address] * Prepare RBC, leukoreduced, 1 Units (10/09/2024 6:16 AM EDT) Product Code [id number] HCLL Unit Number [id number] HCLL Dispense Status Presumed Transfused_PT HCLL Blood Expiration Date [id number] HCLL Coding System [id number] [facility] Product Eileen Schroeder MD, PhD BLOOD BANK PRODUCT OR DERABLES Final Result Performing Organization Address City/[facility]/ZIP Co de Phone Number HCLL * (ABNORMAL) Protime-INR (10/09/2024 4:59 AM EDT) Protime 26.5(H) 12.1 - 15.1 seconds 10/09/2024 6:30 AM EDT [facility] INR 2.4(H) 0.9 - 1.1 10/09/2024 6:30 AM EDT [facility] Comment: RECOMMENDED THERAPEUTIC RANGES USING INR : Stable oral anticoagulant therapy: 2.0 - 3.0 Mechanical prosthetic heart valve: 2.5 - 3.5 Recurrent acute myocardial infarction: 2.5 - 3.5 Plasma 10/09/2024 4:59 AM EDT 10/09/2024 5:55 AM EDT Eileen Schroeder MD, PhD LAB BLOOD ORDERABLES Final Result Performing Organization Address [facility]/ZIP Co de Phone Number [facility] [address] [facility]. [address] * (ABNORMAL) Hepatic Function Panel (10/09/2024 4:59 AM EDT) Total Bilirubin 9.0(H) 0.0 - 1.5 mg/dL 10/09/2024 6:42 AM EDT [facility] Bilirubin, Direct 4.60(H) 0.00 - 0.40 mg/dL 10/09/2024 6:42 AM EDT [facility] AST 38 13 - 39 U/L 10/09/2024 6:42 AM EDT [facility] ALT 18 7 - 52 U/L 10/09/2024 6:42 AM EDT [facility] Alkaline Phosphatase 122 36 - 125 U/L 10/09/2024 6:42 AM EDT [facility] Total Protein 4.8(L) 6.4 - 8.9 g/dL 10/09/2024 6:42 AM EDT [facility] Albumin 3.4(L) 3.5 - 5.7 g/dL 10/09/2024 6:42 AM EDT [facility] Bilirubin, Indirect 4.40(H) 0.00 - 1.10 mg/dL 10/09/2024 6:42 AM EDT [facility] Plasma 10/09/2024 4:59 AM EDT 10/09/2024 5:57 AM EDT us Eileen Schroeder MD, PhD LAB BLOOD ORDERABLES Final Result [facility] [address] [facility]. [address] * Magnesium (10/09/2024 4:59 AM EDT) Magnesium 1.8 1.5 - 2.5 mg/dL 10/09/2024 6:42 AM EDT [facility] Plasma 10/09/2024 4:59 AM EDT 10/09/2024 5:57 AM EDT us Eileen Schroeder MD, PhD LAB BLOOD ORDERABLES Final Result [facility] [address] [place] [address], [facility] * (ABNORMAL) Renal Function Panel w/EGFR (10/09/2024 4:59 AM EDT) Sodium 134 133 - 146 mmol/L 10/09/2024 6:42 AM EDT [facility] Potassium 3.3(L) 3.5 - 5.3 mmol/L 10/09/2024 6:42 AM EDT [facility] Chloride 107 98 - 110 mmol/L 10/09/2024 6:42 AM EDT [facility] CO2 16(L) 21 - 33 mmol/L 10/09/2024 6:42 AM EDT [facility] Anion Gap 11 3 - 16 mmol/L 10/09/2024 6:42 AM EDT [facility] BUN 56(H) 7 - 25 mg/dL 10/09/2024 6:42 AM EDT [facility] Creatinine 2.98(H) 0.60 - 1.30 mg/dL 10/09/2024 6:42 AM EDT [facility] Glucose 112(H) 70 - 100 mg/dL 10/09/2024 6:42 AM EDT [facility] Calcium 9.0 8.6 - 10.3 mg/dL 10/09/2024 6:42 AM EDT [facility] Phosphorus 3.5 2.1 - 4.7 mg/dL 10/09/2024 6:42 AM EDT [facility] Albumin 3.4(L) 3.5 - 5.7 g/dL 10/09/2024 6:42 AM EDT [facility] Osmolality, Calculated 294 278 - 305 mOsm/kg 10/09/2024 6:42 AM EDT [facility] EGFR 26 10/09/2024 6:42 AM EDT [facility] Comment:As of 2021, the estimated GFR [...] BLOOD ORDERABLES Final Result Performing Organization Address City/State/[facility] Co de Phone Number [facility] [address] * (ABNORMAL) CBC (10/09/2024 4:59 AM EDT) WBC 4.6 3.8 - 10.8 10E3/uL 10/09/2024 6:21 AM EDT [facility] RBC 2.17(L) 4.20 - 5.80 10E6/uL 10/09/2024 6:21 AM EDT [facility] Hemoglobin 8.0(L) 13.2 - 17.1 g/dL 10/09/2024 6:21 AM EDT [facility] Hematocrit 21.8(L) 38.5 - 50.0 % 10/09/2024 6:21 AM EDT [facility] MCV 100.5(H) 80.0 - 100.0 fL 10/09/2024 6:21 AM EDT [facility] MCH 36.7(H) 27.0 - 33.0 pg 10/09/2024 6:21 AM EDT [facility] MCHC 36.5(H) 32.0 - 36.0 g/dL 10/09/2024 6:21 AM EDT [facility] RDW 18.1(H) 11.0 - 15.0 % 10/09/2024 6:21 AM EDT [facility] Platelets 36(L) 140 - 400 10E3/uL 10/09/2024 6:21 AM EDT [facility] Comment:Specimen checked for clots. None detected. MPV 8.3 7.5 - 11.5 fL 10/09/2024 6:21 AM EDT [facility] Whole Blood 10/09/2024 4:59 AM EDT 10/09/2024 5:56 AM EDT us Eileen Schroeder MD, PhD LAB BLOOD ORDERABLES Final Result Performing Organization Address City/[facility]/ZIP Co de Phone Number [facility] [address] * Renal Tx Recipient (10/09/2024 4:59 AM EDT) Renal Transplant Recipient The request and specimen(s) for this test have been received and transported to the [facility] at [address] [place] [address]. The [facility] will report results directly to the client. 10/09/2024 7:26 AM EDT [facility] Blood 10/09/2024 4:59 AM EDT 10/09/2024 7:26 AM EDT us Aaron Gonzalez MD LAB BLOOD ORDERABLES Final Resu lt Performing Organization Address [facility] Co de Phone Number [facility] [address] * Vancomycin, random (10/09/2024 4:59 AM EDT) Pathologist [facility] Vancomycin Random 11.0 ug/mL 10/09/2024 6:33 AM EDT [facility] Comment:Reference range not established for this test. Plasma 10/09/2024 4:59 AM EDT 10/09/2024 5:56 AM EDT us Jodi FreireD LAB BLOOD ORDERABLES Final Result Performing Organization Address City/[facility]/ZIP Co de Phone Number [facility] [address] [facility]. [address] * (ABNORMAL) CBC (10/08/2024 5:52 PM EDT) WBC 5.6 3.8 - 10.8 10E3/uL 10/08/2024 6:52 PM EDT [facility] RBC 2.38(L) 4.20 - 5.80 10E6/uL 10/08/2024 6:52 PM EDT [facility] Hemoglobin 8.3(L) 13.2 - 17.1 g/dL 10/08/2024 6:52 PM EDT [facility] Hematocrit 24.6(L) 38.5 - 50.0 % 10/08/2024 6:52 PM EDT [facility] MCV 103.2(H) 80.0 - 100.0 fL 10/08/2024 6:52 PM EDT [facility] MCH 34.7(H) 27.0 - 33.0 pg 10/08/2024 6:52 PM EDT [facility] MCHC 33.6 32.0 - 36.0 g/dL 10/08/2024 6:52 PM EDT [facility] RDW 18.5(H) 11.0 - 15.0 % 10/08/2024 6:52 PM EDT [facility] Platelets 39(L) 140 - 400 10E3/uL 10/08/2024 6:52 PM EDT [facility] Comment:CNV MPV 8.1 7.5 - 11.5 fL 10/08/2024 6:52 PM EDT [facility] Whole Blood 10/08/2024 5:52 PM EDT 10/08/2024 6:45 PM EDT Eileen Schroeder MD, PhD LAB BLOOD ORDERABLES Final Result [facility] [address] [place] [address] * Transfuse RBC Has consent been obtained? Yes; Transfusion Rate: Per dept routine (10/08/2024 1:17 PM EDT) us Eileen Schroeder MD, PhD NURSING TREATMENT ORD ERABLES - BLOOD ADMIN Final Result Performing Organization Address City/[facility] Co de Phone Number EXTERNAL * Transfuse RBC Has consent been obtained? Yes; Transfusion Rate: Per dept routine, 1 Units (10/08/2024 1:17 PM EDT) Eileen Schroeder MD, PhD NURSING TREATMENT ORD ERABLES - BLOOD ADMIN Final Result Performing Organization Address City/[facility] Co de Phone Number EXTERNAL * (ABNORMAL) MMR(IgG) Panel (Measles, Mumps, Rubella) (10/08/2024 10:25 AM EDT) Mumps IgG Positive 10/08/2024 11:39 AM EDT [facility] MUMPS IGG NUM 99.00(H) 0.0 - 8.9 U/mL 10/08/2024 11:39 AM EDT [facility] Rubella IgG Scr Positive 10/08/2024 11:40 AM EDT [facility] RUB NUM 4.15(H) 0.00 - 0.89 INDEX 10/08/2024 11:40 AM EDT [facility] Rubeola Ab, IgG Positive 10/08/2024 11:39 AM EDT [facility] RUB IGG NUM 273.00(H) 0.00 - 13.40 U/mL 10/08/2024 11:39 AM EDT [facility] Serum 10/08/2024 10:2 5 AM EDT 10/08/2024 10:49 AM EDT Narrative [facility] - 10/08/2024 11:40 AM EDT Presence [...] ORDERABLES Final Resu lt Performing Organization Address City/[facility]/ZIP Co de Phone Number [facility] [address] [place] [address], [facility] * (ABNORMAL) Hemoglobin A1C (10/08/2024 10:25 [...] MD LAB BLOOD ORDERABLES Final Resu lt [facility] [address] * (ABNORMAL) Vitamin D 25 Hydroxy (10/08/2024 10:25 AM EDT) Vit D, 25-Hydroxy 7.1(L) 30.0 - 100.0 ng/mL 10/08/2024 11:36 AM EDT [facility] Comment: Vitamin D deficiency has been defined by the [place] of [employer] (IOM) and an Endocrine Society practice guideline as a level of serum 25-OH Vitamin D less than 20 ng/mL. The Endocrine Society went on to further define Vitamin D insufficiency as a level between 21-29 ng/mL. 1) IOM. 2011 Dietary reference intakes for calcium and D. Majano D.C: The National Academies Press 2) Allison GUARDADO, Saturnino DELEON, Tory MILLER, et al. Evaluation, treatment, and prevention of Vitamin D deficiency: an Endocrine Society clinical practice guideline. JCEM. 2010; 96(7):1911-30. Serum 10/08/2024 10:2 5 AM EDT 10/08/2024 10:49 AM EDT us Greri Peterson MD LAB BLOOD ORDERABLES Final Resu lt Performing Organization Address City/[facility]/ZIP Co de Phone Number [facility] [address] [facility]. [address] * Iron Studies (Iron + TIBC) (10/08/2024 10:25 AM EDT) Iron 81 50 - 212 ug/dL 10/08/2024 11:23 AM EDT [facility] % Iron Saturation SEE COMMENT 15.0 - 55.0 % 10/08/2024 11:23 AM EDT [facility] Comment:Unable to calculate result because contributing result outside reportable range.. TIBC SEE COMMENT 261 - 462 ug/dL 10/08/2024 11:23 AM EDT [facility] Comment:Unable to calculate result because contributing result outside reportable range.. Serum 10/08/2024 10:2 5 AM EDT 10/08/2024 10:49 AM EDT us Gerri Peterson MD LAB BLOOD ORDERABLES Final Resu lt Performing Organization Address [facility] Co de Phone Number [facility] [address] [facility]. [address] * (ABNORMAL) Ferritin (10/08/2024 10:25 AM EDT) Ferritin 706.9(H) 23.9 - 336.2 ng/mL 10/08/2024 11:35 AM EDT [facility] Serum 10/08/2024 10:2 5 AM EDT 10/08/2024 10:49 AM EDT Gerri Peterson MD LAB BLOOD ORDERABLES Final Resu lt [facility] [address] [facility]. [address] * QuantiFERON TB2 Ag (10/08/2024 10:25 AM EDT) QuantiFERON TB2 Ag Value 0.07 10/10/2024 10:41 AM EDT [facility] Plasma 10/08/2024 10:2 5 AM EDT 10/08/2024 11:05 AM EDT Gerri Peterson MD LAB BLOOD ORDERABLES Final Resu lt [facility] [address] [facility]. [address] * QuantiFERON TB1 Ag (10/08/2024 10:25 AM EDT) QuantiFERON TB1 Ag Value 0.06 10/10/2024 10:41 AM EDT [facility] Plasma 10/08/2024 10:2 5 AM EDT 10/08/2024 11:05 AM EDT Gerri Peterson MD LAB BLOOD ORDERABLES Final Resu lt Performing Organization Address City/[facility]/ZIP Co de Phone Number [facility] [address] [facility]. [address] * QuantiFERON Nil (10/08/2024 10:25 AM EDT) QuantiFERON Nil 0.06 10:41 AM EDT [facility] Plasma 10/08/2024 10:2 5 AM EDT 10/08/2024 11:05 AM EDT Gerri Peterson MD LAB BLOOD ORDERABLES Final Resu lt Performing Organization Address City/[facility] Co de Phone Number [facility] [address] [place] [address]. [address] * QuantiFERON Mitogen (10/08/2024 10:25 AM EDT) QuantiFERON Interpretation Negative Negative 10/10/2024 10:41 AM EDT [facility] Comment:Negative result geovanny cates M. tuberculosis infection is NOT likely. Negative results do not preclude tuberculosis infection (especially in immunosuppressed patients). Negative results have a TB antigen minus Nil value less than 0.35 IU/mL. In cases with high suspicion of disease, retesting or additional testing with medical evaluation may be useful. QuantiFERON Mitogen 4.87 10/10 10:41 AM EDT [facility] Plasma 10/08/2024 10:2 5 AM EDT 10/08/2024 11:05 AM EDT Narrative [facility] - 10/10/2024 10:41 AM EDT The [...] MD LAB BLOOD ORDERABLES Final Resu lt [facility] [id number] [id number] * Reticulocyte Count, Auto (10/08/2024 7:41 AM EDT) Retic Ct Pct 1.35 0.50 - 2.00 % 10/08/2024 9:12 AM EDT [facility] Retic Ct Abs 26,190 25,000 - 90,000 /uL 10/08/2024 9:14 AM EDT [facility] Immature Retic Fract 0.37 0.09 - 0.56 10/08/2024 9:12 AM EDT [facility] Whole Blood 10/08/2024 7:41 AM EDT 10/08/2024 8:51 AM EDT Angie Blanchard MD LAB BLOOD ORDERABLES Final Res ult [facility] [address] * (ABNORMAL) Haptoglobin (10/08/2024 7:41 AM EDT) Haptoglobin <30(L) 44 - 215 mg/dL 10/08/2024 8:53 AM EDT [facility] Serum 10/08/2024 7:41 AM EDT 10/08/2024 7:51 AM EDT us Eileen Schroeder MD, PhD LAB BLOOD ORDERABLES Final Result Performing Organization Address [facility]/ZIP Co de Phone Number [facility] [address] [facility]. [address] * (ABNORMAL) CBC - Post Transfusion (10/08/2024 7:41 AM EDT) WBC 3.7(L) 3.8 - 10.8 10E3/uL 10/08/2024 8:34 AM EDT [facility] RBC 1.94(L) 4.20 - 5.80 10E6/uL 10/08/2024 8:34 AM EDT [facility] Hemoglobin 7.1(L) 13.2 - 17.1 g/dL 10/08/2024 8:34 AM EDT [facility] Hematocrit 20.0(L) 38.5 - 50.0 % 10/08/2024 8:34 AM EDT [facility] MCV 103.1(H) 80.0 - 100.0 fL 10/08/2024 8:34 AM EDT [facility] MCH 36.5(H) 27.0 - 33.0 pg 10/08/2024 8:34 AM EDT [facility] MCHC 35.4 32.0 - 36.0 g/dL 10/08/2024 8:34 AM EDT [facility] RDW 17.2(H) 11.0 - 15.0 % 10/08/2024 8:34 AM EDT [facility] Platelets 37(L) 140 - 400 10E3/uL 10/08/2024 8:34 AM EDT [facility] Comment: Specimen checked for clots. None detected. Slide Reviewed for PLT Clumps. None Seen. _Platelet Morphology Normal _Platelets Appear Decreased MPV 8.7 7.5 - 11.5 fL 10/08/2024 8:34 AM EDT [facility] Whole Blood 10/08/2024 7:41 AM EDT 10/08/2024 7:52 AM EDT Narrative [facility] - 10/08/2024 8:34 AM EDT Post-transfusion Eileen Schroeder MD, PhD LAB BLOOD ORDERABLES Final Result Performing Organization Address City/[facility]/ZIP Co de Phone Number [facility] [address] [place] [address]. [address] * Antibody Screen (10/08/2024 7:41 AM EDT) Antibody Screen Negative 10/08/2024 8:26 AM EDT [facility] Blood 10/08/2024 7:41 AM EDT 10/08/2024 7:57 AM EDT Narrative [facility] - 10/08/2024 8:32 AM EDT Testing performed by [facility] Transfusion Service Eileen Schroeder MD, PhD BLOOD BANK TEST ORDER PAL Final Result Performing Organization Address City/[facility] Co de Phone Number [facility] [address] [facility]. [address] * ABO/Rh (10/08/2024 7:41 AM EDT) ABO Grouping O 10/08/2024 8:14 AM EDT [facility] Rh Type Positive 10/08/2024 8:14 AM EDT [facility] Blood 10/08/2024 7:41 AM EDT 10/08/2024 7:57 AM EDT Eileen Schroeder MD, PhD BLOOD BANK TEST ORDER PAL Final Result [facility] [address] * (ABNORMAL) Lactate dehydrogenase (10/08/2024 5:36 AM EDT) LD 102(L) 110 - 270 U/L 10/08/2024 8:20 AM EDT [facility] Plasma 10/08/2024 5:36 AM EDT 10/08/2024 7:58 AM EDT us Angie Blanchard MD LAB BLOOD ORDERABLES Final Res ult Performing Organization Address City/[facility]/ZIP Co de Phone Number [facility] [address] * (ABNORMAL) Protime-INR (10/08/2024 5:36 AM EDT) Protime 26.9(H) 12.1 - 15.1 seconds 10/08/2024 6:11 AM EDT [facility] INR 2.4(H) 0.9 - 1.1 10/08/2024 6:11 AM EDT [facility] Comment: RECOMMENDED THERAPEUTIC RANGES USING INR : Stable oral anticoagulant therapy: 2.0 - 3.0 Mechanical prosthetic heart valve: 2.5 - 3.5 Recurrent acute myocardial infarction: 2.5 - 3.5 Plasma 10/08/2024 5:36 AM EDT 10/08/2024 5:52 AM EDT us Eileen Schroeder MD, PhD LAB BLOOD ORDERABLES Final Result Performing Organization Address City/[facility]/ZIP Co de Phone Number [facility] [address] [facility]. [address] * (ABNORMAL) Hepatic Function Panel (10/08/2024 5:36 AM EDT) Total Bilirubin 7.7(H) 0.0 - 1.5 mg/dL 10/08/2024 6:25 AM EDT [facility] Bilirubin, Direct 4.28(H) 0.00 - 0.40 mg/dL 10/08/2024 6:25 AM EDT [facility] AST 34 13 - 39 U/L 10/08/2024 6:25 AM EDT [facility] ALT 16 7 - 52 U/L 10/08/2024 6:25 AM EDT [facility] Alkaline Phosphatase 103 36 - 125 U/L 10/08/2024 6:25 AM EDT [facility] Total Protein 4.7(L) 6.4 - 8.9 g/dL 10/08/2024 6:25 AM EDT [facility] Albumin 3.5 3.5 - 5.7 g/dL 10/08/2024 6:25 AM EDT [facility] Bilirubin, Indirect 3.42(H) 0.00 - 1.10 mg/dL 10/08/2024 6:25 AM EDT [facility] Plasma 10/08/2024 5:36 AM EDT 10/08/2024 5:52 AM EDT Eileen Schroeder MD, PhD LAB BLOOD ORDERABLES Final Result Performing Organization Address City/[facility]/ZIP Co de Phone Number [facility] [address] * Magnesium (10/08/2024 5:36 AM EDT) Magnesium 1.9 1.5 - 2.5 mg/dL 10/08/2024 6:25 AM EDT [facility] Plasma 10/08/2024 5:36 AM EDT 10/08/2024 5:52 AM EDT Eileen Schroeder MD, PhD LAB BLOOD ORDERABLES Final Result [facility] [address] * (ABNORMAL) Renal Function Panel w/EGFR (10/08/2024 5:36 AM EDT) Sodium 135 133 - 146 mmol/L 10/08/2024 6:25 AM EDT [facility] Potassium 3.2(L) 3.5 - 5.3 mmol/L 10/08/2024 6:25 AM EDT [facility] Chloride 106 98 - 110 mmol/L 10/08/2024 6:25 AM EDT [facility] CO2 17(L) 21 - 33 mmol/L 10/08/2024 6:25 AM EDT [facility] Anion Gap 12 3 - 16 mmol/L 10/08/2024 6:25 AM EDT [facility] BUN 61(H) 7 - 25 mg/dL 10/08/2024 6:25 AM EDT [facility] Creatinine 3.10(H) 0.60 - 1.30 mg/dL 10/08/2024 6:25 AM EDT [facility] Glucose 106(H) 70 - 100 mg/dL 10/08/2024 6:25 AM EDT [facility] Calcium 9.0 8.6 - 10.3 mg/dL 10/08/2024 6:25 AM EDT [facility] Phosphorus 4.0 2.1 - 4.7 mg/dL 10/08/2024 6:25 AM EDT [facility] Albumin 3.5 3.5 - 5.7 g/dL 10/08/2024 6:25 AM EDT [facility] Osmolality, Calculated 298 278 - 305 mOsm/kg 10/08/2024 6:25 AM EDT [facility] EGFR 25 10/08/2024 6:25 AM EDT [facility] Comment:As of 2021, the estimated GFR [...] MD, PhD LAB BLOOD ORDERABLES Final Result [facility] [address] [place] [id number], [facility] * (ABNORMAL) CBC (10/08/2024 5:36 AM EDT) WBC 3.2(L) 3.8 - 10.8 10E3/uL 10/08/2024 6:41 AM EDT [facility] RBC 1.86(L) 4.20 - 5.80 10E6/uL 10/08/2024 6:41 AM EDT [facility] Hemoglobin 6.9(L) 13.2 - 17.1 g/dL 10/08/2024 6:41 AM EDT [facility] Hematocrit 18.9(L) 38.5 - 50.0 % 10/08/2024 6:41 AM EDT [facility] MCV 101.6(H) 80.0 - 100.0 fL 10/08/2024 6:41 AM EDT [facility] MCH 36.9(H) 27.0 - 33.0 pg 10/08/2024 6:41 AM EDT [facility] MCHC 36.3(H) 32.0 - 36.0 g/dL 10/08/2024 6:41 AM EDT [facility] RDW 17.0(H) 11.0 - 15.0 % 10/08/2024 6:41 AM EDT [facility] Platelets 34(L) 140 - 400 10E3/uL 10/08/2024 6:41 AM EDT [facility] Comment: Specimen checked for clots. None detected. Slide Reviewed for PLT Clumps. None Seen. Platelet Estimate Decreased 10/08/2024 6:41 AM EDT [facility] MPV 8.4 7.5 - 11.5 fL 10/08/2024 6:41 AM EDT [facility] Whole Blood 10/08/2024 5:36 AM EDT 10/08/2024 5:53 AM EDT Narrative [facility]ALTH LAB - 10/08/2024 6:41 AM EDT Peripheral blood smear was scanned per review criteria approved by the laboratory behavioral medical director. us Eileen Schroeder MD, PhD LAB BLOOD ORDERABLES Final Result Performing Organization Address City/[facility]/ZIP Co de Phone Number [facility] [address] * Vancomycin, random (10/08/2024 5:36 AM EDT) Vancomycin Random 16.0 ug/mL 10/08/2024 6:20 AM EDT [facility] LAB Comment:Reference range not established for this test. Plasma 10/08/2024 5:36 AM EDT 10/08/2024 5:52 AM EDT us Jodi FreireD LAB BLOOD ORDERABLES Final Result Performing Organization Address [facility] de Phone Number [facility] [address] [place] [facility]. [address] * Urine Drug Confirmation (10/07/2024 10:50 PM EDT) BARBITURATES NOT PRESENT 10/09/2024 1:33 PM EDT [facility] BENZODIAZEPINES PRESENT 1:33 PM EDT [facility] Nordiazepam 3 ng/mL 10/09/2024 1:33 PM EDT [facility] Temazepam 6 ng/mL 10/09/2024 1:33 PM EDT [facility] CANNABINOIDS NOT PRESENT 10/09/2024 1:33 PM EDT [facility] COOK AT [employer] STIMULANTS NOT PRESENT 1:33 PM EDT [facility] OPIOID ANALGESICS PRESENT 025 1:33 PM EDT [facility] Oxycodone 300 ng/mL 10/09/2024 1:33 PM EDT [facility] Oxymorphone 32 ng/mL 10/09/2024 1:33 PM EDT [facility] Tramadol >1000 ng/mL 10/09/2024 1:33 PM EDT [facility] OPIOID ANTAGONISTS NOT PRESENT 10/09 1:33 PM EDT [facility] SEDATIVES/MUSCLE RELAXANTS NOT PRESENT 10/09/2024 1:33 PM EDT [facility] TRICYCLIC ANTIDEPRESSANTS NOT PRESENT 10/09/2024 1:33 PM EDT [facility] Urine 10/07/2024 10:5 0 PM EDT 10/08/2024 3:00 AM EDT Gerri Peterson MD URINE ORDERABLES Final Result [facility] [address] [facility]. [address] * Giardia Cryptosporidium Antigens (10/07/2024 10:50 PM EDT) Cryptosporidium Ag Negative Negative 2024 7:59 AM EDT [facility] Giardia Ag Negative Negative 10/08/2024 7:59 AM EDT [facility] Comment: Detection of Giardia and Cryptosporidium antigen is more sensitive and specific than microscopy. Because antigens are shed continuously, repeat testing is rarely warranted. Feces 10/07/2024 10:5 0 PM EDT 10/08/2024 1:53 AM EDT Comment:F Bisi Hernandez DO MICROBIOLOGY - GENERAL ORDERABLE S Final Result Performing Organization Address [facility] Co de Phone Number [facility] [address] [facility]. [address] * (ABNORMAL) Urine Drug Screen Reflex to Confirmation (10/07/2024 10:50 PM EDT) Amphetamine, 500 ng/mL Cutoff Negative Negative 10/08/2024 3:00 AM EDT [facility] Barbiturates UR, 300 ng/mL Cutoff Negative Negative 10/08/2024 3:00 AM EDT [facility] Buprenorphine, 5 ng/mL Cutoff Negative Negative 10/08/2024 3:00 AM EDT [facility] Benzodiazepines UR, 300 ng/mL Cutoff Negative Negative 10/08/2024 3:00 AM EDT [facility] Cocaine UR, 300 ng/mL Cutoff Negative Negative 10/08/2024 3:00 AM EDT [facility] Methadone, UR, 300 ng/mL Cutoff Negative Negative 10/08/2024 3:00 AM EDT [facility] Opiates UR, 300 ng/mL Cutoff Negative Negative 10/08/2024 3:00 AM EDT [facility] Oxycodone, 100 ng/mL Cutoff Presumptive Positive(A) Negative 10/08/2024 3:00 AM EDT [facility] Tricyclic Antidepressants, 300 ng/mL Cutoff Negative Negative 10/08/2024 3:00 AM EDT [facility] Comment:This test has been d eveloped and its performance characteristics determined by [facility] which is certified under the Clinical [...] Cutoff Negative Negative 10/08/2024 3:00 AM EDT [facility] Comment:This is a screening method only and may be associated with false positive and/or false negative results. Results are not definitive without additional confirmatory testing by mass spectrometry. Fentanyl, 2 ng/mL Cutoff Negative Negative 10/08/2024 3:00 AM EDT [facility] Comment:This test has been d eveloped and its performance characteristics determined by [facility] which is certified under the Clinical [...] PM EDT 10/08/2024 2:08 AM EDT Narrative [facility] - 10/08/2024 3:00 AM EDT CONFIRMATION TO FOLLOW Gerri Peterson MD URINE ORDERABLES Final Result [facility] [address] [place] [address], [facility] * Comprehensive Drug Screen (10/07/2024 10:50 PM EDT) Creatinine, Ur CANCELED mg/dL 10/08/2024 7:09 AM EDT [facility] Comment:The released value 8 7.30 was canceled by YAQUELIN on 10/08/2024 07:09 BARBITURATES CANCELED [facility] Butalbital CANCELED [facility] Phenobarbital CANCELED [facility] Secobarbital CANCELED [facility] BENZODIAZEPINES CANCELED [facility] Alprazolam CANCELED [facility] Clonazepam CANCELED [facility] Diazepam CANCELED [facility] Alpha-Hydroxyalprazo mcknight CANCELED [facility] Lorazepam CANCELED [facility] Midazolam CANCELED [facility] Nordiazepam CANCELED [facility] Oxazepam CANCELED [facility] Temazepam CANCELED [facility] CANNABINOIDS CANCELED [facility] THC-COOH CANCELED [facility] C[employer] STIMULANTS CANCELED [facility] Cocaine Metabolite(benzoylec gonine) CANCELED [facility] Amphetamine CANCELED [facility] Methamphetamine CANCELED [facility] MDA CANCELED [facility] MDEA CANCELED [facility] Phencyclindine (PCP) CANCELED [facility] OPIOID ANALGESICS CANCELED [facility] Heroin Metabolite(6-RAMONA) CANCELED [facility] Codeine CANCELED [facility] Morphine CANCELED [facility] Hydrocodone CANCELED [facility] Hydromorphone CANCELED [facility] Oxycodone CANCELED [facility] Oxymorphone CANCELED [facility] Meperidine CANCELED [facility] Normeperidine CANCELED [facility] Methadone CANCELED [facility] Methadone Metabolite (EDDP) CANCELED [facility] Tramadol CANCELED [facility] Fentanyl CANCELED [facility] Norfentanyl CANCELED [facility] Sufentanil CANCELED [facility] OPIOID ANTAGONISTS CANCELED [facility] Buprenorphine CANCELED [facility] Norbuprenorphine [facility]ELED [facility] Naltrexone CANCELED [facility] Naloxone CANCELED [facility] LAB SEDATIVES/MUSCLE RELAXANTS [facility]ELED [facility] Carisoprodol [facility] Meprobamate [facility] TRICYCLIC ANTIDEPRESSANTS [facility] Amitriptyline [facility] Clomipramine [facility] Desipramine [facility] Doxepin [facility] Imipramine CANCELED [facility] Nortriptyline [facility] Urine Creatinine CANCELED mg/dL [facility] Nitrite CANCELED [facility] Glutaraldehyde CANCELED [facility] pH CANCELED 10/08/2024 7:09 AM EDT [facility] Comment:The released value 5 .6 was canceled by YAQUELIN on 10/08/2024 07:09 Specific [place] CANCELED 10/09/19 7:09 AM EDT [facility] Comment:The released value 1 .009 was canceled by YAQUELIN on 10/08/2024 07:09 Bleach CANCELED [facility] Pyridinium Chlorochromate CANCELED [facility] Urine 10/07/2024 10:5 0 PM EDT 10/08/2024 2:07 AM EDT Narrative [facility]ALTH LAB - 10/08/2024 7:09 AM EDT See accn [id number] Gerri Peterson MD URINE ORDERABLES Edited Result - Final [facility] [address] * Ova and Parasite Comprehensive w/ Giardia/Crypto (10/07/2024 10:50 PM EDT) O & P Method: Concentration and Trichrome Stain [facility] Results No Amoeba, Ova, Or Parasites Seen. -- O and P examination of additional specimens is recommended only for symptomatic patients, immunosuppressed patients or those with an appropriate travel history. [facility] Feces FECES / Unknown 10/07/2024 1 0:50 PM EDT 10/08/2024 1:53 AM EDT Comment:F Bisi Hernandez DO MICROBIOLOGY - GENERAL ORDERABLE S Final Result [facility] [address] [place] [address], [facility] * Enteric Pathogen Panel (10/07/2024 10:50 PM EDT) Campylobacter Group (C. ecoli, C. jejuni, C. trino) Not Detected Not Detected 10/08/2024 4:40 AM EDT [facility] Salmonella species Not Detected Not Detected 10/08/2024 4:40 AM EDT [facility] Shigella species Not Detected Not Detected 10/08/2024 4:40 AM EDT [facility] Vibrio Group (Vibrio cholerae, Vibrio parahaemolyticus) Not Detected Not Detected 10/08/2024 4:40 AM EDT [facility] Yersinia enterocolitica Not Detected Not Detected 10/08/2024 4:40 AM EDT [facility] Shiga toxin 1 Not Detected Not Detected 10/08/2024 4:40 AM EDT [facility] Shiga toxin 2 Not Detected Not Detected 10/08/2024 4:40 AM EDT [facility] Norovirus Not Detected Not Detected 10/08/2024 4:40 AM EDT [facility] Rotavirus Not Detected Not Detected 10/08/2024 4:40 AM EDT [facility] Comment: The Enteric Pathogen Panel is [...] EDT 10/08/2024 1:53 AM EDT Comment:F Bisi Davidana maría DO BODY FLUIDS AND STOOLS ORDERABLE S Final Result [facility] [address] * Hepatitis C Antibody (10/07/2024 6:38 PM EDT) HCV Ab Nonreactive Nonreactive 10/07/2024 7:56 PM EDT [facility] Comment:Health Department no tified in accordance with reportable infectious disease guidelines. Serum 10/07/2024 6:38 PM EDT 10/07/2024 6:52 PM EDT Narrative [facility] - 10/07/2024 7:56 PM EDT Antibodies to HCV not detected; does not exclude the possibility of exposure to HCV. Gerri Peterson MD LAB BLOOD ORDERABLES Final Resu lt Performing Organization Address [facility]/ZIP Co de Phone Number [facility] [address] [facility]. [address] * Hepatitis B Surface Antibody, Quantitati (10/07/2024 6:38 PM EDT) Hep B S Ab Nonreactive Nonreactive 10/07/2024 8:00 PM EDT [facility] HBSAB NUMBER 7.88 0.00 - 7.99 mIU/mL 10/07/2024 8:00 PM EDT [facility] Serum 10/07/2024 6:38 PM EDT 10/07/2024 6:52 PM EDT Narrative [facility] - 10/07/2024 8:00 PM EDT Individual is considered not immune to HBV infection. Gerri Peterson MD LAB BLOOD ORDERABLES Final Resu lt Performing Organization Address City/[facility]/ZIP Co de Phone Number [facility] [address] [facility]. [address] * Hepatitis B surface antigen (10/07/2024 6:38 PM EDT) Hep B Surface Ag Nonreactive Nonreactive 10/07/2024 7:51 PM EDT [facility] Comment:Health Department no tified in accordance with reportable infectious disease guidelines. Serum 10/07/2024 6:38 PM EDT 10/07/2024 6:52 PM EDT [facility] - 10/07/2024 7:51 PM EDT Specimen is considered negative for HBsAg. Gerri Peterson MD LAB BLOOD ORDERABLES Final Resu lt Performing Organization Address [facility] Co de Phone Number [facility] [address] [facility]. [address] * Hepatitis A Antibody Total (10/07/2024 6:38 PM EDT) Anti-HAV Total (IgG + IgM) Nonreactive 10/07/2024 7:53 PM EDT [facility] Serum 10/07/2024 6:38 PM EDT 10/07/2024 6:52 PM EDT [facility] - 10/07/2024 7:53 PM EDT HAV antibodies not detected Gerri Peterson MD LAB BLOOD ORDERABLES Final Resu lt Performing Organization Address [facility] de Phone Number [facility] [address] [facility]. [address] * Hepatitis A IgM (10/07/2024 6:38 PM EDT) Hep A IgM Nonreactive Nonreactive 10/07/2024 7:46 PM EDT [facility] Serum 10/07/2024 6:38 PM EDT 10/07/2024 6:52 PM EDT Critical access hospital LAB - 10/07/2024 7:46 PM EDT IgM anti-HAV not detected. Does not exclude the possibility of exposure to or infection with HAV. Levels of IgM anti-HAV may be below the cut-off in early infection. Gerri Peterson MD LAB BLOOD ORDERABLES Final Resu lt Performing Organization Address [facility] Co de Phone Number [facility] [address] [facility]. [place] [id number] * (ABNORMAL) Lipid Profile (10/07/2024 6:37 PM EDT) Non-HDL Cholesterol, Calculated See Note 0 - 129 mg/dL 10/07/2024 7:42 PM EDT [facility] Comment: Desirable: < 130 mg/dL Above Desirable: 130-159 mg/dL Borderline High: 160-189 mg/dL High: 190-219 mg/dL Very High: > 219 mg/dL Unable to calculate result either because contributing result(s) are outside of reportable range or are not available. Cholesterol, Total <25 0 - 200 mg/dL 10/07/2024 7:42 PM EDT [facility] Triglycerides 30 10 - 149 mg/dL 10/07/2024 7:42 PM EDT [facility] HDL 4(L) 60 - 92 mg/dL 10/07/2024 7:42 PM EDT [facility] Comment: LIPID PROFILE INTERPRETATION CHOLESTEROL,TOTAL(mg/dL) DESIRABLE: [...] Cholesterol See Note mg/dL 7:42 PM EDT [facility] Comment:Unable to calculate result either because contributing result(s) are outside of reportable range or are not available. Plasma 10/07/2024 6:37 PM EDT 10/07/2024 7:06 PM EDT Narrative HEALTH LAB - 10/07/2024 7:42 PM EDT LDL cholesterol calculated using the Friedewald equation. us Gerri Peterson MD LAB BLOOD ORDERABLES Final Resu lt [facility] [address] [place] [address], [facility] * (ABNORMAL) Alpha 1 Antitrypsin AAT Quant & Mutation (10/07/2024 6:37 PM EDT) A-1 Antitrypsin 99(L) 101 - 187 mg/dL 10/09/2024 4:28 AM EDT [facility] A-1 Antitrypsin Pheno Comment 10/10/2024 4:05 PM EDT [facility] Comment: A1A Phenotype is consistent with a heterozygous phenotype consisting of one M (normal) allele and one allele that cannot be identified at this time. The unknown allele is not consistent with Z (deficient), S (deficient), or F (deficient). MM Phenotype is considered to be normal , producing normal serum levels of njzhn-1-nmovydkv inhibitor and not associated with clinical disease. [...] - 10/10/2024 4:08 PM EDT PERFORMED AT: [facility] [id number] SKATING RINK MANAGER: Bassam Khalil, PhD PHONE: [phone] PERFORMED AT: [facility] [id number] SKATING RINK MANAGER: Mandy Abdul MD PHONE: [phone] Gerri Peterson MD LAB BLOOD ORDERABLES Final Resu lt [facility] [address] * (ABNORMAL) CMV IgG Antibody (10/07/2024 6:37 PM EDT) CMV IgG Positive(A ) Negative 10/07/2024 8:26 PM EDT [facility] CMV IGG NUM 8.40(H) 0.00 - 0.59 U/mL 10/07/2024 8:26 PM EDT [facility] Serum 10/07/2024 6:37 PM EDT 10/07/2024 6:50 PM EDT Gerri Peterson MD LAB BLOOD ORDERABLES Final Resu lt Performing Organization Address City/[facility]/ZIP Co de Phone Number [facility] [address] [facility]. [address] * HIV-1 and HIV-2 Antibodies w Reflex (10/07/2024 6:37 PM EDT) Pathologist [facility] HIV 1+2 AB/AGN Nonreactive Nonreactive 10/07/2024 7:54 PM EDT [facility] Serum 10/07/2024 6:37 PM EDT 10/07/2024 7:06 PM EDT Narrative [facility] - 10/07/2024 7:54 PM EDT \HIVRNR Gerri Peterson MD LAB BLOOD ORDERABLES Final Resu lt [facility] [address] * TSH (Thyroid Stimulating Hormone) (10/07/2024 6:37 PM EDT) TSH 0.81 0.45 - 4.12 uIU/mL 10/07/2024 8:17 PM EDT [facility] Serum 10/07/2024 6:37 PM EDT 10/07/2024 6:50 PM EDT Gerri Peterson MD LAB BLOOD ORDERABLES Final Resu lt Performing Organization Address [facility] Co de Phone Number [facility] [address] * Katie-Watkins virus early antigen antibody, IgG (10/07/2024 6:37 PM EDT) [facility] [address] [facility] EBV Early Antigen Ab, IgG <9.0 0.0 - 8.9 U/mL 10/09/2024 2:16 PM EDT [facility] Comment: Negative < 9.0 Equivocal 9.0 - 10.9 Positive >10.9 Serum Frozen 10/07/2024 6:37 PM EDT 10/09/2024 3:07 PM EDT Narrative [facility] - 10/09/2024 3:07 PM EDT PERFORMED AT: [facility] [id number] SKATING RINK MANAGER: Bassam Khalil, PhD PHONE: [phone] Gerri Peterson MD LAB BLOOD ORDERABLES Final Resu lt Performing Organization Address City/[facility] de Phone Number [facility] [address] [place] [address] * (ABNORMAL) Varicella zoster antibody, IgG (10/07/2024 6:37 PM EDT) [facility] [address] [facility] Varicella IgG Positive( A) Negative S/CO 10/07/2024 8:34 PM EDT [facility] Comment:Result indicates the presence of detectable VZV IgG antibodies. A positive result is generally indicative of exposure to the pathogen or administration of specific immunoglobulins, but it is no indication of active infection or stage of disease. This test is not approved for determining vaccine-induced immunity to varicella zoster virus. VZV NUM 6.76(H) 0.00 - 0.99 S/CO 10/07/2024 8:34 PM EDT [facility] Serum 10/07/2024 6:37 PM EDT 10/07/2024 6:50 PM EDT Gerri Peterson MD LAB BLOOD ORDERABLES Final Resu lt Performing Organization Address [facility] de Phone Number [facility] [address] [place] [address]. [address] * Toxoplasma gondii antibody, IgG (10/07/2024 6:37 PM EDT) Toxoplasma Gondii IgG <3.0 0.0 - 7.1 IU/mL 10/09/2024 7:53 AM EDT [facility] Comment: Negative <7.2 Equivocal 7.2 - 8.7 Positive >8.7 Serum 10/07/2024 6:37 PM EDT 10/09/2024 8:07 AM EDT Narrative [facility] - 10/09/2024 8:07 AM EDT PERFORMED AT: [facility] [address] [id number] SKATING RINK MANAGER: Bassam Khalil, PhD PHONE: [phone] Gerri Peterson MD LAB BLOOD ORDERABLES Final Resu lt Performing Organization Address [facility] de Phone Number [facility] [address] [place] [address]. [address] * Syphilis Screening (Trepia) (10/07/2024 6:37 PM EDT) Treponema Pallidum Negative Negative 10/07/2024 8:27 PM EDT [facility] Comment: No serological evidence of infection with Treponema pallidum (incubating or early primary syphilis cannot be excluded). Serum 10/07/2024 6:37 PM EDT 10/07/2024 6:50 PM EDT Gerri Peterson MD LAB BLOOD ORDERABLES Final Resu lt [facility] [address] [facility]. [address] * Strongyloides Ab (10/07/2024 6:37 PM EDT) Strongyloides Ab Negative Negative 10/11/19 11:51 AM EDT [facility] Serum 10/07/2024 6:37 PM EDT 10/10/2024 12:07 PM EDT Narrative HEALTH LAB - 10/10/2024 12:07 PM EDT PERFORMED AT: [address] [id number] SKATING RINK MANAGER: Mandy Abdul MD PHONE: [phone] Gerri Peterson MD LAB BLOOD ORDERABLES Final Resu lt Performing Organization Address [facility] Co de Phone Number [facility] [address] * Phosphatidylethanol Confirmation, B (10/07/2024 6:37 PM EDT) PETH 16:0/18.1 (POPETH) <10 Cutoff: 10 ng/mL 10/10/2024 10:42 AM EDT [facility] Comment: Phosphatidylethanol (PEth) homologues result interpretation [...] Cutoff: 10 ng/mL 10/10/2024 10:42 AM EDT [facility] Comment: PEth 16:0/18:2 (PLPEth) Reference ranges are not well established PEth Interpretation Negative. 10/10 10:42 AM EDT [facility] Comment: ADDITIONAL INFORMATION This report is intended for use in clinical monitoring and management of patients. It is not intended for use in employment-related testing. This test was developed and its performance characteristics determined by [facility] in a manner consistent with CLIA requirements. This test has not been cleared or approved by the U.S. Food and Drug Administration. Test Performed by: [facility] [address] [place] [address] Pharmacy Messenger: Kathy Ortiz Ph.D.; CLIA# [id number] Whole Blood 10/07/2024 6:37 PM EDT 10/10/2024 10:42 AM EDT us Gerri Peterson MD LAB BLOOD ORDERABLES Final Resu lt [facility] [address] * (ABNORMAL) MMR(IgG) Panel (Measles, Mumps, Rubella) (10/07/2024 6:37 PM EDT) Mumps IgG Positive 10/07/2024 8:26 PM EDT [facility] MUMPS IGG NUM 77.80(H) 0.0 - 8.9 U/mL 10/07/2024 8:26 PM EDT [facility] Rubella IgG Scr Positive 10/07/2024 8:28 PM EDT [facility] RUB NUM 3.04(H) 0.00 - 0.89 INDEX 10/07/2024 8:28 PM EDT [facility] Rubeola Ab, IgG Positive 10/07/2024 8:26 PM EDT [facility] RUB IGG NUM 192.00(H) 0.00 - 13.40 U/mL 10/07/2024 8:26 PM EDT [facility] Serum 10/07/2024 6:37 PM EDT 10/07/2024 6:50 PM EDT Narrative [facility] - 10/07/2024 8:28 PM EDT Presence [...] ORDERABLES Final Resu lt Performing Organization Address City/[facility]/ZIP Co de Phone Number [facility] [address] [place] [address] * IgA (10/07/2024 6:37 PM EDT) IgA 227.0 70.0 - 400.0 mg/dL 10/08/2024 11:07 AM EDT [facility] Comment:Please interpret the se findings in conjunction with clinical findings, protein electrophoresis, and immunotyping/immunofixation results. Serum 10/07/2024 6:37 PM EDT 10/07/2024 6:50 PM EDT Gerri Peterson MD LAB BLOOD ORDERABLES Final Resu lt Performing Organization Address [facility] Co de Phone Number [facility] [address] [place] [address]. [address] * Ethanol, Serum (10/07/2024 6:37 PM EDT) Ethanol <10 0 - 10 mg/dL 10/07/2024 8:36 PM EDT [facility] Serum 10/07/2024 6:37 PM EDT 10/07/2024 6:50 PM EDT Gerri Peterson MD LAB BLOOD ORDERABLES Final Resu lt Performing Organization Address [facility] Co de Phone Number [facility] [address] [place] [address]. [address] * ABO/Rh - Second (10/07/2024 6:37 PM EDT) ABO Grouping O 10/07/2024 7:16 PM EDT [facility] Rh Type Positive 10/07/2024 7:16 PM EDT [facility] Blood 10/07/2024 6:37 PM EDT 10/07/2024 6:56 PM EDT Narrative [facility] - 10/07/2024 7:18 PM EDT This is not a duplicate order. It is required that ABO be drawn twice for LIVER TRANSPLANT Gerri Peterson MD BLOOD BANK TEST ORDERABLES Denisse l Result [facility] [address] [facility]. [address] * ABO/Rh- Initial (10/07/2024 6:37 PM EDT) ABO Grouping O 10/07/2024 7:59 PM EDT [facility] Rh Type Positive 10/07/2024 7:59 PM EDT [facility] Blood 10/07/2024 6:37 PM EDT 10/07/2024 7:25 PM EDT Gerri Peterson MD BLOOD BANK TEST ORDERABLES Denisse l Result [facility] [address] [facility]. [address] * X-ray Mandible minimum 4-views (10/07/2024 [...] EXAM: US ABDOMEN COMPLETE EXAM: US DUPLEX [id number] COMPLETE INDICATION: elevated bilirubin COMPARISON: Ultrasound and [...] EXAM: US ABDOMEN COMPLETE EXAM: US DUPLEX [id number] COMPLETE INDICATION: elevated bilirubin COMPARISON: Ultrasound and [...] 4:26 PM EDT us Bisi Mary DO [facility] US ORDERABLES Final Result * US Duplex Cor-Jdr-Sbwdyaa Comp (10/07/2024 3:48 PM EDT) Anatomical Region [...] EXAM: US ABDOMEN COMPLETE EXAM: US DUPLEX [id number] COMPLETE INDICATION: elevated bilirubin COMPARISON: Ultrasound and [...] EXAM: US ABDOMEN COMPLETE EXAM: US DUPLEX [id number] COMPLETE INDICATION: elevated bilirubin COMPARISON: Ultrasound and [...] 0.9 - 1.1 10/07/2024 6:55 AM EDT [facility] Comment: RECOMMENDED THERAPEUTIC RANGES USING INR : Stable oral anticoagulant therapy: 2.0 - 3.0 Mechanical prosthetic heart valve: 2.5 - 3.5 Recurrent acute myocardial infarction: 2.5 - 3.5 Plasma 10/07/2024 6:00 AM EDT 10/07/2024 6:39 AM EDT us Eileen Schroeder MD, PhD LAB BLOOD ORDERABLES Final Result [facility] [address] * (ABNORMAL) Hepatic Function Panel (10/07/2024 6:00 AM EDT) Total Bilirubin 9.7(H) 0.0 - 1.5 mg/dL 10/07/2024 7:10 AM EDT [facility] Bilirubin, Direct 5.21(H) 0.00 - 0.40 mg/dL 10/07/2024 7:10 AM EDT [facility] AST 39 13 - 39 U/L 10/07/2024 7:10 AM EDT [facility] ALT 18 7 - 52 U/L 10/07/2024 7:10 AM EDT [facility] Alkaline Phosphatase 98 36 - 125 U/L 10/07/2024 7:10 AM EDT [facility] Total Protein 4.8(L) 6.4 - 8.9 g/dL 10/07/2024 7:10 AM EDT [facility] Albumin 3.6 3.5 - 5.7 g/dL 10/07/2024 7:10 AM EDT [facility] Bilirubin, Indirect 4.49(H) 0.00 - 1.10 mg/dL 10/07/2024 7:10 AM EDT [facility] Plasma 10/07/2024 6:00 AM EDT 10/07/2024 6:39 AM EDT Eileen Schroeder MD, PhD LAB BLOOD ORDERABLES Final Result Performing Organization Address City/State/[facility] Co de Phone Number [facility] [address] * Magnesium (10/07/2024 6:00 AM EDT) Magnesium 1.7 1.5 - 2.5 mg/dL 10/07/2024 7:10 AM EDT [facility] Plasma 10/07/2024 6:00 AM EDT 10/07/2024 6:39 AM EDT Eileen Schroeder MD, PhD LAB BLOOD ORDERABLES Final Result [facility] [address] [place] [address], [facility] * (ABNORMAL) Renal Function Panel w/EGFR (10/07/2024 6:00 AM EDT) Sodium 132(L) 133 - 146 mmol/L 10/07/2024 7:10 AM EDT [facility] Potassium 3.9 3.5 - 5.3 mmol/L 10/07/2024 7:10 AM EDT [facility] Chloride 103 98 - 110 mmol/L 10/07/2024 7:10 AM EDT [facility] CO2 19(L) 21 - 33 mmol/L 10/07/2024 7:10 AM EDT [facility] Anion Gap 10 3 - 16 mmol/L 10/07/2024 7:10 AM EDT [facility] BUN 64(H) 7 - 25 mg/dL 10/07/2024 7:10 AM EDT [facility] Creatinine 3.38(H) 0.60 - 1.30 mg/dL 10/07/2024 7:10 AM EDT [facility] Glucose 111(H) 70 - 100 mg/dL 10/07/2024 7:10 AM EDT [facility] Calcium 9.1 8.6 - 10.3 mg/dL 10/07/2024 7:10 AM EDT [facility] Phosphorus 4.2 2.1 - 4.7 mg/dL 10/07/2024 7:10 AM EDT [facility] Albumin 3.6 3.5 - 5.7 g/dL 10/07/2024 7:10 AM EDT [facility] Osmolality, Calculated 293 278 - 305 mOsm/kg 10/07/2024 7:10 AM EDT [facility] EGFR 22 10/07/2024 7:10 AM EDT [facility] Comment:As of 2021, the estimated GFR [...] MD, PhD LAB BLOOD ORDERABLES Final Result [facility] [address] [place] [id number], [facility] * (ABNORMAL) CBC (10/07/2024 6:00 AM EDT) WBC 3.3(L) 3.8 - 10.8 10E3/uL 10/07/2024 7:55 AM EDT [facility] RBC 2.06(L) 4.20 - 5.80 10E6/uL 10/07/2024 7:55 AM EDT [facility] Hemoglobin 7.4(L) 13.2 - 17.1 g/dL 10/07/2024 7:55 AM EDT [facility] Hematocrit 21.5(L) 38.5 - 50.0 % 10/07/2024 7:55 AM EDT [facility] MCV 104.1(H) 80.0 - 100.0 fL 10/07/2024 7:55 AM EDT [facility] MCH 35.8(H) 27.0 - 33.0 pg 10/07/2024 7:55 AM EDT [facility] MCHC 34.4 32.0 - 36.0 g/dL 10/07/2024 7:55 AM EDT [facility] RDW 17.5(H) 11.0 - 15.0 % 10/07/2024 7:55 AM EDT [facility] Platelets 35(L) 140 - 400 10E3/uL 10/07/2024 7:55 AM EDT [facility] Comment: Specimen checked for clots. None detected. Slide Reviewed for PLT Clumps. None Seen. _Platelet Morphology Normal _Platelets Appear Decreased Platelet Estimate Decreased 10/07/2024 7:55 AM EDT [facility] MPV 8.0 7.5 - 11.5 fL 10/07/2024 7:55 AM EDT [facility] Whole Blood 10/07/2024 6:00 AM EDT 10/07/2024 6:40 AM EDT [facility] LAB - 10/07/2024 7:55 AM EDT Peripheral blood smear was scanned per review criteria approved by the laboratory behavioral medical director. us Eileen Schroeder MD, PhD LAB BLOOD ORDERABLES Final Result Performing Organization Address [facility]/ZIP Co de Phone Number [facility] [address] [facility]. [address] * AFP Tumor Marker (10/07/2024 6:00 AM EDT) [facility] [address] [facility] AFP-Tumor Marker 2.0 0.0 - 9.0 ng/mL 10/07/2024 7:11 AM EDT [facility] Serum 10/07/2024 6:00 AM EDT 10/07/2024 6:39 AM EDT [facility] - 10/07/2024 7:11 AM EDT The testing method for AFP is a chemiluminescent immunoassay manufactured by [employer] Concentrations of AFP obtained by different assay methods or kits may vary and cannot be used interchangeably. AFP results cannot be interpreted as absolute evidence of the presence or absence of malignant disease. us Shila Rivera MD LAB BLOOD ORDERABLES Final Resul t [facility] [address] [facility]. [address] * Vancomycin, random (10/07/2024 6:00 AM EDT) [facility] [address] [facility] Vancomycin Random 21.1 ug/mL 10/07/2024 7:08 AM EDT [facility] Comment:Reference range not established for this test. Plasma 10/07/2024 6:00 AM EDT 10/07/2024 6:39 AM EDT Kiet FreireD LAB BLOOD ORDERABLES Final Re sult [facility] [address] * Osmolality (10/06/2024 2:50 PM EDT) Osmolality, Measured 304 278 - 305 mOsm/kg 10/06/2024 3:49 PM EDT [facility] Serum 10/06/2024 2:50 PM EDT 10/06/2024 2:56 PM EDT Chari Vanegas MD LAB BLOOD ORDERABLES Final Resul t Performing Organization Address [facility] Co de Phone Number [facility] [address] * CT Head WO contrast (10/06/2024 [...] Eileen Schroeder MD, PhD IMG CT ORDERABLES [facility] Result * Chloride, urine, random (10/06/2024 1:25 PM EDT) Chloride, Ur <15 mmol/L 10/06/2024 1:56 PM EDT [facility] Comment:Reference range not established for this test. Urine 10/06/2024 1:25 PM EDT 10/06/2024 1:32 PM EDT Chari Vanegas MD URINE ORDERABLES Final Result [facility] [address] * Potassium, urine, random (10/06/2024 1:25 PM EDT) Potassium Urine Random 50.0 mmol/L 10/06/2024 1:56 PM EDT [facility] Comment:Reference range not established for this test. Urine 10/06/2024 1:25 PM EDT 10/06/2024 1:32 PM EDT us Chari Vanegas MD URINE ORDERABLES Final Result Performing Organization Address [facility] Co de Phone Number [facility] [address] [facility]. [address] * Sodium, urine, random (10/06/2024 1:25 PM EDT) Sodium, Ur <10 mmol/L 10/06/2024 1:56 PM EDT [facility] Comment:Reference range not established for this test. Urine 10/06/2024 1:25 PM EDT 10/06/2024 1:32 PM EDT us Chari Vanegas MD URINE ORDERABLES Final Result Performing Organization Address [facility] de Phone Number [facility] [address] [facility]. [address] * Creatinine, Urine, Random (10/06/2024 1:25 PM EDT) Creatinine, Urine 87.40 mg/dL 10/06/2024 1:56 PM EDT [facility] Comment:Reference range not established for this test. Urine 10/06/2024 1:25 PM EDT 10/06/2024 1:32 PM EDT us Chari Vanegas MD URINE ORDERABLES Final Result Performing Organization Address [facility] Co de Phone Number [facility] [address] [facility]. [address] * Osmolality, Urine (10/06/2024 1:25 PM EDT) Osmolality, Ur 386 50 - 1,200 mOsm/kg 10/06/2024 1:55 PM EDT [facility] Urine 10/06/2024 1:25 PM EDT 10/06/2024 1:32 PM EDT us Chari Vanegas MD URINE ORDERABLES Final Result Performing Organization Address [facility]/State/ZIP Co de Phone Number [facility] [address] * Urine Drug Confirmation (10/06/2024 11:51 AM EDT) BARBITURATES NOT PRESENT 10/09/2024 3:23 PM EDT [facility]ALTH [facility] Comment:Results were recheck ed. BENZODIAZEPINES PRESENT 3:23 PM EDT [facility] Nordiazepam 3 ng/mL 10/09/2024 3:23 PM EDT [facility] Comment:Results were recheck ed. Temazepam 8 ng/mL 10/09/2024 3:23 PM EDT [facility] Comment:Results were recheck ed. CANNABINOIDS NOT PRESENT 10/09/2024 3:23 PM EDT [facility] COOK AT [employer] STIMULANTS NOT PRESENT 3:23 PM EDT [facility] OPIOID ANALGESICS PRESENT 025 3:23 PM EDT [facility] Oxycodone 329 ng/mL 10/09/2024 3:23 PM EDT [facility] Oxymorphone 61 ng/mL 10/09/2024 3:23 PM EDT [facility] Tramadol >1000 ng/mL 10/09/2024 3:23 PM EDT [facility] OPIOID ANTAGONISTS NOT PRESENT 10/09 3:23 PM EDT [facility] SEDATIVES/MUSCLE RELAXANTS NOT PRESENT 10/09/2024 3:23 PM EDT [facility] TRICYCLIC ANTIDEPRESSANTS NOT PRESENT 10/09/2024 3:23 PM EDT [facility] Urine 10/06/2024 11:5 1 AM EDT 10/06/2024 1:13 PM EDT us Bisi Hernandez DO URINE ORDERABLES Final Result [facility] [address] * (ABNORMAL) Urine Drug Screen Reflex to Confirmation (10/06/2024 11:51 AM EDT) Amphetamine, 500 ng/mL Cutoff Negative Negative 10/06/2024 1:13 PM EDT [facility] Barbiturates UR, 300 ng/mL Cutoff Negative Negative 10/06/2024 1:13 PM EDT [facility] Buprenorphine, 5 ng/mL Cutoff Negative Negative 10/06/2024 1:13 PM EDT [facility] Benzodiazepines UR, 300 ng/mL Cutoff Negative Negative 10/06/2024 1:13 PM EDT [facility] Cocaine UR, 300 ng/mL Cutoff Negative Negative 10/06/2024 1:13 PM EDT [facility] Methadone, UR, 300 ng/mL Cutoff Negative Negative 10/06/2024 1:13 PM EDT [facility] Opiates UR, 300 ng/mL Cutoff Negative Negative 10/06/2024 1:13 PM EDT [facility] Oxycodone, 100 ng/mL Cutoff Presumptive Positive(A) Negative 10/06/2024 1:13 PM EDT [facility] Tricyclic Antidepressants, 300 ng/mL Cutoff Negative Negative 10/06/2024 1:13 PM EDT [facility] Comment:This test has been d eveloped and its performance characteristics determined by [facility] which is certified under the Clinical [...] Cutoff Negative Negative 10/06/2024 1:13 PM EDT [facility] Comment:This is a screening method only and may be associated with false positive and/or false negative results. Results are not definitive without additional confirmatory testing by mass spectrometry. Fentanyl, 2 ng/mL Cutoff Negative Negative 10/06/2024 1:13 PM EDT [facility] Comment:This test has been d eveloped and its performance characteristics determined by [facility] which is certified under the Clinical [...] AM EDT 10/06/2024 11:58 AM EDT Narrative [facility] - 10/06/2024 1:13 PM EDT CONFIRMATION TO FOLLOW us Bisi Hernandez DO URINE ORDERABLES Final Result Performing Organization Address City/[facility] Co de Phone Number [facility] [address] * Chloride, urine, random (10/06/2024 11:51 AM EDT) Chloride, Ur <15 mmol/L 10/06/2024 1:13 PM EDT [facility] Comment:Reference range not established for this test. Urine 10/06/2024 11:5 1 AM EDT 10/06/2024 11:57 AM EDT us Bisi Hernandez DO URINE ORDERABLES Final Result Performing Organization Address [facility] Co de Phone Number [facility] [address] * Potassium, urine, random (10/06/2024 11:51 AM EDT) Potassium Urine Random 49.0 mmol/L 10/06/2024 1:13 PM EDT [facility] Comment:Reference range not established for this test. Urine 10/06/2024 11:5 1 AM EDT 10/06/2024 11:57 AM EDT Bisi Hernandez DO URINE ORDERABLES Final Result Performing Organization Address City/[facility] Co de Phone Number [facility] [address] [facility]. [address] * Sodium, urine, random (10/06/2024 11:51 AM EDT) Sodium, Ur <10 mmol/L 10/06/2024 1:13 PM EDT [facility] Comment:Reference range not established for this test. Urine 10/06/2024 11:5 1 AM EDT 10/06/2024 11:57 AM EDT Bisijusten Hernandez DO URINE ORDERABLES Final Result [facility] [address] [place] [address], [facility] * Urinalysis w/Rfl to Microscopic (10/06/2024 11:51 AM EDT) Color, UA Yellow Yellow,Straw 10/06/2024 12:25 PM EDT [facility] Clarity, UA Clear Clear 10/06/2024 12:25 PM EDT [facility] Specific [place], UA 1.014 1.005 - 1.035 10/06/2024 12:25 PM EDT [facility] pH, UA 6.0 5.0 - 8.0 10/06/2024 12:25 PM EDT [facility] Protein, UA Negative Negative mg/dL 10/06/2024 12:25 PM EDT [facility] Glucose, UA Negative Negative mg/dL 10/06/2024 12:25 PM EDT [facility] Ketones, UA Negative Negative mg/dL 10/06/2024 12:25 PM EDT [facility] Bilirubin, UA Negative Negative 10/06/2024 12:25 PM EDT [facility] Blood, UA Negative Negative 10/06/2024 12:25 PM EDT [facility] Nitrite, UA Negative Negative 10/06/2024 12:25 PM EDT [facility] Urobilinogen, UA <2.0 0.2 - 1.9 mg/dL 10/06/2024 12:25 PM EDT [facility] Leukocyte Esterase, UA Negative Negative 10/06/2024 12:25 PM EDT [facility] Urine 10/06/2024 11:5 1 AM EDT 10/06/2024 11:57 AM EDT Narrative [facility] - 10/06/2024 12:25 PM EDT Microscopic testing is not performed when the dipstick is negative for blood, leukocyte, protein and nitrite. Bisi Hernandez DO URINE ORDERABLES Final Result [facility] [address] * Lactic Acid, STAT (10/06/2024 7:38 AM EDT) Lactate 0.9 0.5 - 2.2 mmol/L 10/06/2024 8:05 AM EDT [facility] Plasma 10/06/2024 7:38 AM EDT 10/06/2024 7:42 AM EDT Chari Vanegas MD LAB BLOOD ORDERABLES Final Resul t [facility] [address] * (ABNORMAL) CBC, STAT (10/06/2024 7:37 AM EDT) WBC 5.6 3.8 - 10.8 10E3/uL 10/06/2024 8:22 AM EDT [facility] RBC 2.50(L) 4.20 - 5.80 10E6/uL 10/06/2024 8:22 AM EDT [facility] Hemoglobin 9.0(L) 13.2 - 17.1 g/dL 10/06/2024 8:22 AM EDT [facility] Hematocrit 25.3(L) 38.5 - 50.0 % 10/06/2024 8:22 AM EDT [facility] MCV 101.2(H) 80.0 - 100.0 fL 10/06/2024 8:22 AM EDT [facility] MCH 36.0(H) 27.0 - 33.0 pg 10/06/2024 8:22 AM EDT [facility] MCHC 35.6 32.0 - 36.0 g/dL 10/06/2024 8:22 AM EDT [facility] RDW 17.7(H) 11.0 - 15.0 % 10/06/2024 8:22 AM EDT [facility] Platelets 52(L) 140 - 400 10E3/uL 10/06/2024 8:22 AM EDT [facility] Comment: Specimen checked for clots. None detected. Slide Reviewed for PLT Clumps. None Seen. MPV 8.2 7.5 - 11.5 fL 10/06/2024 8:22 AM EDT [facility] Whole Blood 10/06/2024 7:37 AM EDT 10/06/2024 7:43 AM EDT us Chari Vanegas MD LAB BLOOD ORDERABLES Final Resul t [facility] [address] [place], [place] [address] * (ABNORMAL) Comprehensive Metabolic Panel (10/06/2024 7:37 AM EDT) Sodium 129(L) 133 - 146 mmol/L 10/06/2024 8:16 AM EDT [facility] Potassium 4.4 3.5 - 5.3 mmol/L 10/06/2024 8:16 AM EDT [facility] Chloride 100 98 - 110 mmol/L 10/06/2024 8:16 AM EDT [facility] CO2 18(L) 21 - 33 mmol/L 10/06/2024 8:16 AM EDT [facility] Anion Gap 11 3 - 16 mmol/L 10/06/2024 8:16 AM EDT [facility] BUN 62(H) 7 - 25 mg/dL 10/06/2024 8:16 AM EDT [facility] Creatinine 3.40(H) 0.60 - 1.30 mg/dL 10/06/2024 8:16 AM EDT [facility] Glucose 98 70 - 100 mg/dL 10/06/2024 8:16 AM EDT [facility] Calcium 9.5 8.6 - 10.3 mg/dL 10/06/2024 8:16 AM EDT [facility] Total Bilirubin 14.3(H) 0.0 - 1.5 mg/dL 10/06/2024 8:16 AM EDT [facility] AST 57(H) 13 - 39 U/L 10/06/2024 8:16 AM EDT [facility] ALT 29 7 - 52 U/L 10/06/2024 8:16 AM EDT [facility] Alkaline Phosphatase 158(H) 36 - 125 U/L 10/06/2024 8:16 AM EDT [facility] Total Protein 5.6(L) 6.4 - 8.9 g/dL 10/06/2024 8:16 AM EDT [facility] Albumin 3.6 3.5 - 5.7 g/dL 10/06/2024 8:16 AM EDT [facility] Osmolality, Calculated 286 278 - 305 mOsm/kg 10/06/2024 8:16 AM EDT [facility] EGFR 22 10/06/2024 8:16 AM EDT [facility] Comment:As of 2021, the estimated GFR [...] MD LAB BLOOD ORDERABLES Final Resul t [facility] [address] [place], [place] [address] * (ABNORMAL) Venous Blood Gas, Line/Syringe, STAT (10/06/2024 7:37 AM EDT) PH-Line Draw 7.27(L) 7.32 - 7.42 10/06/2024 7:46 AM EDT [facility] PCO2-Line Draw 36(L) 41 - 51 mm Hg 10/06/2024 7:46 AM EDT [facility] PO2-Line Draw 44(H) 25 - 40 mm Hg 10/06/2024 7:46 AM EDT [facility] HCO3-Line Draw 17(L) 24 - 28 mmol/L 10/06/2024 7:46 AM EDT [facility] CO2 Content-Line Draw 18(L) 25 - 29 mmol/L 10/06/2024 7:46 AM EDT [facility] Base Excess-Line Draw -9.6(L) -2.0 - 3.0 mmol/L 10/06/2024 7:46 AM EDT [facility] %HBO2-Line Draw 69.8 40.0 - 70.0 % 10/06/2024 7:46 AM EDT [facility] Carboxyhgb-Ludivina e Draw 0.7 % 10/06/2024 7:46 AM EDT [facility] Comment: CARBOXYHEMOGLOBIN (CO) REFERENCE RANGES: Non-Smokers: <2 % Smokers: <8 % TOXIC: >20 % Methemoglobin- Line Draw 0.3 0.0 - 1.5 % 10/06/2024 7:46 AM EDT [facility] Reduced Hemoglobin-Ludivina e Draw 29.2(H) 0.0 - 5.0 % 10/06/2024 7:46 AM EDT [facility] Venous, Line Draw 10/06/2024 7:37 AM EDT 10/06/2024 7:43 AM EDT Chrai Vanegas MD LAB BLOOD ORDERABLES Final Resul t Performing Organization Address City/State/[facility] Co de Phone Number [facility] [address] [id number], [facility] * (ABNORMAL) Venous Blood Gas, Line/Syringe, STAT (10/06/2024 4:03 AM EDT) PH-Line Draw 7.21(L) 7.32 - 7.42 10/06/2024 4:16 AM EDT [facility] PCO2-Line Draw 41 41 - 51 mm Hg 10/06/2024 4:16 AM EDT [facility] PO2-Line Draw 32 25 - 40 mm Hg 10/06/2024 4:16 AM EDT [facility] HCO3-Line Draw 16(L) 24 - 28 mmol/L 10/06/2024 4:16 AM EDT [facility] CO2 Content-Line Draw 18(L) 25 - 29 mmol/L 10/06/2024 4:16 AM EDT [facility] Base Excess-Line Draw -10.8(L) -2.0 - 3.0 mmol/L 10/06/2024 4:16 AM EDT [facility] %HBO2-Line Draw 47.5 40.0 - 70.0 % 10/06/2024 4:16 AM EDT [facility] Carboxyhgb-Ludivina e Draw 2.0 % 10/06/2024 4:16 AM EDT [facility] Comment: CARBOXYHEMOGLOBIN (CO) REFERENCE RANGES: Non-Smokers: <2 % Smokers: <8 % TOXIC: >20 % Methemoglobin- Line Draw 0.7 0.0 - 1.5 % 10/06/2024 4:16 AM EDT [facility] Reduced Hemoglobin-Ludivina e Draw 49.8(H) 0.0 - 5.0 % 10/06/2024 4:16 AM EDT [facility] Venous, Line Draw 10/06/2024 4:03 AM EDT 10/06/2024 4:12 AM EDT us Bisi Hernandez DO LAB BLOOD ORDERABLES Final Resul t [facility] [address] * (ABNORMAL) Protime-INR (10/06/2024 4:01 AM EDT) Protime 21.3(H) 12.1 - 15.1 seconds 10/06/2024 4:40 AM EDT [facility] INR 1.8(H) 0.9 - 1.1 10/06/2024 4:40 AM EDT [facility] Comment: RECOMMENDED THERAPEUTIC RANGES USING INR : Stable oral anticoagulant therapy: 2.0 - 3.0 Mechanical prosthetic heart valve: 2.5 - 3.5 Recurrent acute myocardial infarction: 2.5 - 3.5 Plasma 10/06/2024 4:01 AM EDT 10/06/2024 4:11 AM EDT BisiSmadex DO LAB BLOOD ORDERABLES Final Resul t [facility] [address] * (ABNORMAL) Hepatic Function Panel, AM (10/06/2024 4:01 AM EDT) Total Bilirubin 14.7(H) 0.0 - 1.5 mg/dL 10/06/2024 4:57 AM EDT [facility] Bilirubin, Direct 7.08(H) 0.00 - 0.40 mg/dL 10/06/2024 4:57 AM EDT [facility] AST 60(H) 13 - 39 U/L 10/06/2024 4:57 AM EDT [facility] ALT 31 7 - 52 U/L 10/06/2024 4:57 AM EDT [facility] Alkaline Phosphatase 162(H) 36 - 125 U/L 10/06/2024 4:57 AM EDT [facility] Total Protein 5.3(L) 6.4 - 8.9 g/dL 10/06/2024 4:57 AM EDT [facility] Albumin 3.4(L) 3.5 - 5.7 g/dL 10/06/2024 4:57 AM EDT [facility] Bilirubin, Indirect 7.62(H) 0.00 - 1.10 mg/dL 10/06/2024 4:57 AM EDT [facility] Plasma 10/06/2024 4:01 AM EDT 10/06/2024 4:22 AM EDT Bisi [facility] DO LAB BLOOD ORDERABLES Final Resul t [facility] [address] [facility]. [address] * Magnesium (10/06/2024 4:01 AM EDT) Magnesium 1.8 1.5 - 2.5 mg/dL 10/06/2024 4:57 AM EDT [facility] Plasma 10/06/2024 4:01 AM EDT 10/06/2024 4:22 AM EDT us Bisi Hernandez DO LAB BLOOD ORDERABLES Final Resul t [facility] [address] [place] [address], [facility] * (ABNORMAL) Renal Function Panel w/EGFR (10/06/2024 4:01 AM EDT) Sodium 129(L) 133 - 146 mmol/L 10/06/2024 4:57 AM EDT [facility] Potassium 4.7 3.5 - 5.3 mmol/L 10/06/2024 4:57 AM EDT [facility] Chloride 100 98 - 110 mmol/L 10/06/2024 4:57 AM EDT [facility] CO2 16(L) 21 - 33 mmol/L 10/06/2024 4:57 AM EDT [facility] Anion Gap 13 3 - 16 mmol/L 10/06/2024 4:57 AM EDT [facility] BUN 61(H) 7 - 25 mg/dL 10/06/2024 4:57 AM EDT [facility] Creatinine 3.49(H) 0.60 - 1.30 mg/dL 10/06/2024 4:57 AM EDT [facility] Glucose 104(H) 70 - 100 mg/dL 10/06/2024 4:57 AM EDT [facility] Calcium 9.2 8.6 - 10.3 mg/dL 10/06/2024 4:57 AM EDT [facility] Phosphorus 5.3(H) 2.1 - 4.7 mg/dL 10/06/2024 4:57 AM EDT [facility] Albumin 3.4(L) 3.5 - 5.7 g/dL 10/06/2024 4:57 AM EDT [facility] Osmolality, Calculated 286 278 - 305 mOsm/kg 10/06/2024 4:57 AM EDT [facility] EGFR 22 10/06/2024 4:57 AM EDT [facility] Comment:As of 2021, the estimated GFR [...] DO LAB BLOOD ORDERABLES Final Resul t [facility] [address] * (ABNORMAL) CBC (10/06/2024 4:01 AM EDT) WBC 7.6 3.8 - 10.8 10E3/uL 10/06/2024 5:16 AM EDT [facility] RBC 2.77(L) 4.20 - 5.80 10E6/uL 10/06/2024 5:16 AM EDT [facility] Hemoglobin 10.1(L) 13.2 - 17.1 g/dL 10/06/2024 5:16 AM EDT [facility] Hematocrit 28.4(L) 38.5 - 50.0 % 10/06/2024 5:16 AM EDT [facility] MCV 102.4(H) 80.0 - 100.0 fL 10/06/2024 5:16 AM EDT [facility] MCH 36.4(H) 27.0 - 33.0 pg 10/06/2024 5:16 AM EDT [facility] MCHC 35.5 32.0 - 36.0 g/dL 10/06/2024 5:16 AM EDT [facility] RDW 18.0(H) 11.0 - 15.0 % 10/06/2024 5:16 AM EDT [facility] Platelets 53(L) 140 - 400 10E3/uL 10/06/2024 5:16 AM EDT [facility] Comment:Specimen checked for clots. None detected. MPV 8.4 7.5 - 11.5 fL 10/06/2024 5:16 AM EDT [facility] Whole Blood 10/06/2024 4:01 AM EDT 10/06/2024 4:11 AM EDT [facility] BLOOD ORDERABLES Final Resul t Performing Organization Address [facility] Co de Phone Number [facility] [address] [facility]. [address] * Hepatitis C Antibody (10/06/2024 4:01 AM EDT) HCV Ab Nonreactive Nonreactive 10/06/2024 5:12 AM EDT [facility] Comment:Health Department no tified in accordance with reportable infectious disease guidelines. Serum 10/06/2024 4:01 AM EDT 10/06/2024 4:11 AM EDT Narrative [facility] - 10/06/2024 5:12 AM EDT Antibodies to HCV not detected; does not exclude the possibility of exposure to HCV. [employer] LAB BLOOD ORDERABLES Final Resul t Performing Organization Address City/[facility]/ZIP Co de Phone Number [facility] [address] [facility]. [address] * (ABNORMAL) Hepatitis B Surface Antibody, Quantitati (10/06/2024 4:01 AM EDT) Hep B S Ab Reactive( A) Nonreactive 10/06/2024 5:16 AM EDT [facility] HBSAB NUMBER 11.50(H) 0.00 - 7.99 mIU/mL 10/06/2024 5:16 AM EDT [facility] Serum 10/06/2024 4:01 AM EDT 10/06/2024 4:11 AM EDT [facility] - 10/06/2024 5:16 AM EDT Individual is considered immune to HBV infection. [place] LAB BLOOD ORDERABLES Final Resul t Performing Organization Address [facility] Co de Phone Number [facility] [address] [facility]. [address] * Hepatitis B surface antigen (10/06/2024 4:01 AM EDT) Hep B Surface Ag Nonreactive Nonreactive 10/06/2024 5:07 AM EDT [facility] Comment:Health Department no tified in accordance with reportable infectious disease guidelines. Serum 10/06/2024 4:01 AM EDT 10/06/2024 4:11 AM EDT [facility] - 10/06/2024 5:07 AM EDT Specimen is considered negative for HBsAg. [place] LAB BLOOD ORDERABLES Final Resul t Performing Organization Address [facility] Co de Phone Number [facility] [address] [facility]. [address] * Hepatitis A Antibody Total (10/06/2024 4:01 AM EDT) Anti-HAV Total (IgG + IgM) Nonreactive 10/06/2024 5:08 AM EDT [facility] Serum 10/06/2024 4:01 AM EDT 10/06/2024 4:11 AM EDT [facility] - 10/06/2024 5:08 AM EDT HAV antibodies not detected [facility] LAB BLOOD ORDERABLES Final Resul t Performing Organization Address City/[facility]/ZIP Co de Phone Number [facility] [address] * Hepatitis A IgM (10/06/2024 4:01 AM EDT) Hep A IgM Nonreactive Nonreactive 10/06/2024 5:02 AM EDT [facility] Serum 10/06/2024 4:01 AM EDT 10/06/2024 4:11 AM EDT Narrative [facility] - 10/06/2024 5:02 AM EDT IgM anti-HAV not detected. Does not exclude the possibility of exposure to or infection with HAV. Levels of IgM anti-HAV may be below the cut-off in early infection. [facility] BLOOD ORDERABLES Final Resul t Performing Organization Address City/[facility]/ZIP Co de Phone Number [facility] [address] [facility]. [address] * (ABNORMAL) Salicylate Level (10/06/2024 4:01 AM EDT) [facility] [address] Salicylate Lvl <3(L) 10 - 30 mg/dL 10/06/2024 4:58 AM EDT [facility] Serum 10/06/2024 4:01 AM EDT 10/06/2024 4:22 AM EDT [employer] LAB BLOOD ORDERABLES Final Resul t Performing Organization Address [facility] Co de Phone Number [facility] [address] [facility]. [address] * AFP Tumor Marker (10/06/2024 4:01 AM EDT) [facility] [address] AFP-Tumor Marker 2.6 0.0 - 9.0 ng/mL 10/06/2024 4:55 AM EDT [facility] Serum 10/06/2024 4:01 AM EDT 10/06/2024 4:22 AM EDT Narrative [facility] - 10/06/2024 4:55 AM EDT The testing method for AFP is a chemiluminescent immunoassay manufactured by [employer] Concentrations of AFP obtained by different assay methods or kits may vary and cannot be used interchangeably. AFP results cannot be interpreted as absolute evidence of the presence or absence of malignant disease. us Bisi Hernandez DO LAB BLOOD ORDERABLES Final Resul t [facility] [address] [place] [address], [facility] * Upper Respiratory Viral/Bacterial Panel-[employer] Only (10/06/2024 3:12 AM EDT) Adenovirus Not Detected Not Detected 10/06/2024 11:38 PM EDT [facility] Coronavirus (229E,HKU1,NL63,OC 43) Not Detected Not Detected 10/06/2024 11:38 PM EDT [facility] SARS-CoV-2 Not Detected Not Detected 10/06/2024 11:38 PM EDT [facility] Human Metapneumovirus Not Detected Not Detected 10/06/2024 11:38 PM EDT [facility] Human Rhinovirus/Enterov irus Not Detected Not Detected 10/06/2024 11:38 PM EDT [facility] Influenza A Not Detected Not Detected 10/06/2024 11:38 PM EDT [facility] Influenza A H1 Not Detected Not Detected 10/06/2024 11:38 PM EDT [facility] Influenza A/H1-2009 Not Detected Not Detected 10/06/2024 11:38 PM EDT [facility] Influenza A H3 Not Detected Not Detected 10/06/2024 11:38 PM EDT [facility] Influenza B Not Detected Not Detected 10/06/2024 11:38 PM EDT [facility] Parainfluenza 1 Not Detected Not Detected 10/06/2024 11:38 PM EDT [facility] Parainfluenza 2 Not Detected Not Detected 10/06/2024 11:38 PM EDT [facility] Parainfluenza 3 Not Detected Not Detected 10/06/2024 11:38 PM EDT [facility] Parainfluenza 4 Not Detected Not Detected 10/06/2024 11:38 PM EDT [facility] Resp. Syncycial Virus A Not Detected Not Detected 10/06/2024 11:38 PM EDT [facility] Resp. Syncycial Virus B Not Detected Not Detected 10/06/2024 11:38 PM EDT [facility] Chlamydia pneumoniae Not Detected Not Detected 10/06/2024 11:38 PM EDT [facility] Mycoplasma pneumoniae Not Detected Not Detected 10/06/2024 11:38 PM EDT [facility] Comment: The Respiratory Viral-Bacterial Panel is [...] Test results have been sent to the [facility] in accordance with state requirements. For a fact sheet for healthcare providers, see https://www.fda.gov/media/128164/download. For a fact sheet for patients, see https://www.fda.gov/media/194242/download. Nasopharyngeal Swab NASOPHARYNGEAL SWAB / Unknown 10/06/2024 3:12 AM EDT 10/06/2024 5:41 PM EDT Comment:[employer] us Bisi Hernandez DO BODY FLUIDS AND STOOLS ORDERABLE S Final Result [facility] [address] * X-ray Portable Chest (10/06/2024 1:16 AM EDT) Anatomical Region Laterality Modality Chest Radiographic Rachel ging 10/06/2024 12:5 7 AM EDT Impressions 10/06/2024 2:33 AM EDT IMPRESSION: Negative portable chest. Report Verified by: Eduardo Fransk MD at 10/06/2024 2:33 AM EDT Narrative [...] 10/06/2024 2:33 AM EDT Bisi Hernandez DO [facility] ORDERABLE S Final Result * [...] Cutoff: 10 ng/mL 10/10/2024 3:11 AM EDT [facility] Comment: PEth 16:0/18:2 (PLPEth) Reference ranges are not well established PEth Interpretation Negative. 10/10 3:11 AM EDT [facility] Comment: ADDITIONAL INFORMATION This report is intended for use in clinical monitoring and management of patients. It is not intended for use in employment-related testing. This test was developed and its performance characteristics determined by [facility] in a manner consistent with CLIA requirements. This test has not been cleared or approved by the U.S. Food and Drug Administration. Test Performed by: [address] [address] Pharmacy Messenger: Kathy Ortiz Ph.D.; CLIA# [id number] Whole Blood 10/06/2024 1:04 AM EDT 10/10/2024 3:11 AM EDT [facility] LAB BLOOD ORDERABLES Final Resul t Performing Organization Address City/[facility]/ZIP Co de Phone Number [facility] [address] * (ABNORMAL) Acetaminophen Level (10/06/2024 1:04 AM EDT) Acetaminophen Level <10(L) 10 - 30 ug/mL 10/06/2024 2:08 AM EDT [facility] Serum 10/06/2024 1:04 AM EDT 10/06/2024 1:30 AM EDT [facility] LAB BLOOD ORDERABLES Final Resul t [facility] [address] * Ethanol, Serum (10/06/2024 1:04 AM EDT) Ethanol <10 0 - 10 mg/dL 10/06/2024 2:08 AM EDT [facility] Serum 10/06/2024 1:04 AM EDT 10/06/2024 1:30 AM EDT Bisi Akana maría LAB BLOOD ORDERABLES Final Resul t Performing Organization Address [facility] Co de Phone Number [facility] [address] [facility]. [address] * #2 Blood culture-Peripheral site 2 (10/06/2024 1:04 AM EDT) Culture Result No Growth After 5 Days [facility] Blood BLOOD SPECIMEN / Unknown 10/06/2024 1:04 AM EDT 10/06/2024 4:57 AM EDT Narrative [facility]ALTH LAB - 10/11/2024 5:05 AM EDT Suboptimal volume of blood received. Interpret results with caution. Bisi Mary DOZIER MICROBIOLOGY - GENERAL ORDERABLE S Final Result Performing Organization Address [facility] Co de Phone Number [facility] [address] [facility]. [address] * #1 Blood culture-Peripheral site 1 (10/06/2024 1:04 AM EDT) Culture Result No Growth After 5 Days [facility] Blood BLOOD SPECIMEN / Unknown 10/06/2024 1:04 AM EDT 10/06/2024 4:57 AM EDT Narrative [facility]ALTH LAB - 10/11/2024 5:01 AM EDT Suboptimal volume of blood received. Interpret results with caution. Bisi Hernandez DO MICROBIOLOGY - GENERAL ORDERABLE S Final Result [facility] [address] * Ammonia (10/06/2024 1:04 AM EDT) Ammonia 77 27 - 90 ug/dL 10/06/2024 2:00 AM EDT [facility] Plasma 10/06/2024 1:04 AM EDT 10/06/2024 1:30 AM EDT [facility] LAB BLOOD ORDERABLES Final Resul t Performing Organization Address [facility] Co de Phone Number [facility] [address] [facility]. [address] * Thyroid Function Anderson (10/06/2024 1:04 AM EDT) TSH 0.84 0.45 - 4.12 uIU/mL 10/06/2024 2:20 AM EDT [facility] Serum 10/06/2024 1:04 AM EDT 10/06/2024 1:39 AM EDT [facility] LAB BLOOD ORDERABLES Final Resul t Performing Organization Address [facility] Co de Phone Number [facility] [address] [facility]. [address] * (ABNORMAL) Protime-INR (10/06/2024 1:04 AM EDT) Protime 22.8(H) 12.1 - 15.1 seconds 10/06/2024 1:48 AM EDT [facility] INR 1.9(H) 0.9 - 1.1 10/06/2024 1:48 AM EDT [facility] Comment: RECOMMENDED THERAPEUTIC RANGES USING INR : Stable oral anticoagulant therapy: 2.0 - 3.0 Mechanical prosthetic heart valve: 2.5 - 3.5 Recurrent acute myocardial infarction: 2.5 - 3.5 Plasma 10/06/2024 1:04 AM EDT 10/06/2024 1:30 AM EDT us Layer3 TV DO LAB BLOOD ORDERABLES Final Resul t [facility] [address] [facility]. [address] * Lactic Acid, STAT (10/06/2024 1:04 AM EDT) Lactate 1.2 0.5 - 2.2 mmol/L 10/06/2024 1:59 AM EDT [facility] Plasma 10/06/2024 1:04 AM EDT 10/06/2024 1:30 AM EDT us BisiRedTella DO LAB BLOOD ORDERABLES Final Resul t Performing Organization Address [facility] Co de Phone Number [facility] [address] [facility]. [address] * (ABNORMAL) CBC, STAT (10/06/2024 1:04 AM EDT) WBC 7.9 3.8 - 10.8 10E3/uL 10/06/2024 2:36 AM EDT [facility] RBC 2.76(L) 4.20 - 5.80 10E6/uL 10/06/2024 2:36 AM EDT [facility] Hemoglobin 9.9(L) 13.2 - 17.1 g/dL 10/06/2024 2:36 AM EDT [facility] Hematocrit 28.0(L) 38.5 - 50.0 % 10/06/2024 2:36 AM EDT [facility] MCV 101.5(H) 80.0 - 100.0 fL 10/06/2024 2:36 AM EDT [facility] MCH 35.7(H) 27.0 - 33.0 pg 10/06/2024 2:36 AM EDT [facility] MCHC 35.2 32.0 - 36.0 g/dL 10/06/2024 2:36 AM EDT [facility] RDW 17.9(H) 11.0 - 15.0 % 10/06/2024 2:36 AM EDT [facility] Platelets 58(L) 140 - 400 10E3/uL 10/06/2024 2:36 AM EDT [facility] Comment: Specimen checked for clots. None detected. Slide Reviewed for PLT Clumps. None Seen. MPV 8.2 7.5 - 11.5 fL 10/06/2024 2:36 AM EDT [facility] Whole Blood 10/06/2024 1:04 AM EDT 10/06/2024 1:31 AM EDT us Bisi Hernandez DO LAB BLOOD ORDERABLES Final Resul t [facility] [address] [place] [address], [facility] * (ABNORMAL) Comprehensive Metabolic Panel (10/06/2024 1:04 AM EDT) Sodium 127(L) 133 - 146 mmol/L 10/06/2024 2:05 AM EDT [facility] Potassium 4.5 3.5 - 5.3 mmol/L 10/06/2024 2:05 AM EDT [facility] Chloride 99 98 - 110 mmol/L 10/06/2024 2:05 AM EDT [facility] CO2 18(L) 21 - 33 mmol/L 10/06/2024 2:05 AM EDT [facility] Anion Gap 10 3 - 16 mmol/L 10/06/2024 2:05 AM EDT [facility] BUN 59(H) 7 - 25 mg/dL 10/06/2024 2:05 AM EDT [facility] Creatinine 3.54(H) 0.60 - 1.30 mg/dL 10/06/2024 2:05 AM EDT [facility] Glucose 116(H) 70 - 100 mg/dL 10/06/2024 2:05 AM EDT [facility] Calcium 9.0 8.6 - 10.3 mg/dL 10/06/2024 2:05 AM EDT [facility] Total Bilirubin 14.8(H) 0.0 - 1.5 mg/dL 10/06/2024 2:05 AM EDT [facility] AST 61(H) 13 - 39 U/L 10/06/2024 2:05 AM EDT [facility] ALT 33 7 - 52 U/L 10/06/2024 2:05 AM EDT [facility] Alkaline Phosphatase 174(H) 36 - 125 U/L 10/06/2024 2:05 AM EDT [facility] Total Protein 5.2(L) 6.4 - 8.9 g/dL 10/06/2024 2:05 AM EDT [facility] Albumin 3.3(L) 3.5 - 5.7 g/dL 10/06/2024 2:05 AM EDT [facility] Osmolality, Calculated 282 278 - 305 mOsm/kg 10/06/2024 2:05 AM EDT [facility] EGFR 21 10/06/2024 2:05 AM EDT [facility] Comment:As of 2021, the estimated GFR [...] DO LAB BLOOD ORDERABLES Final Resul t [facility] [address] [place] [address], [facility] documented in this encounter Visit Diagnoses [...] Oral, 3 times daily, First dose on Itsh 10/09/24 at 1300 Given 10/17/2024 8:49 AM [...] patient is non-communicative (CPOT 3-5), Starting on 10/07/24 at 1205 oxyCODONE (ROXICODONE) immediate release [...] in sodium chloride 0.9 % 250 mL [id number] 1,000 mg, Intravenous, Administer over 60 Minutes, Once, Contact pharmacy if there is a question/concern of whether vancomycin should be given based on serum drug levels. Use [id number] Adapter - Mix Thoroughly Before Administration, Indication? Infection-Suspected, Site of diagnosed infections (select all that apply): Abdominal/Pelvic New Bag 10/08/2024 12:59 PM EDT 1,000 mg 250 mL/hr vancomycin (VANCOCIN) 1,500 mg in sodium chloride 0.9 % 250 mL [id number] 1,500 mg, Intravenous, Administer over 90 Minutes, Once, Contact pharmacy if there is a question/concern of whether vancomycin should be given based on serum drug levels. Use Vydx5Ery Adapter - Mix Thoroughly Before Administration, Indication? [...] 0900 0938 (Given - Provider: Suzette Arciniega, RN) folic acid (FOLVITE) tablet 1 mg [...] RN)210 (Given - Provider: Chelsy Bush RN) 0636 (Given - Provider: Chelsy Bush RN)1317 (Given - Provider: Anu Wolff RN)2022 (Given - Provider: Soco Milton, ЮЛИЯ) 0607 (Not Given - Provider: Soco Milton [...] Bush, ЮЛИЯ) 0606 (Given - Provider: Soco Milton, ЮЛИЯ) [...] Sun10/09/24 at 1300 0820 (Given - Provider: Aun Wolff RN)1335 (Given - Provider: Anu Wolff RN)2103 (Given - Provider: Chelsy Bush, ЮЛИЯ) 0833 (Given - Provider: Anu Wolff RN)1317 (Given - Provider: Anu Wolff RN)2022 (Given - Provider: Soco Milton RN) 0849 (Given - Provider: Suzette Arciniega, RN) oxyCODONE (ROXICODONE) immediate release tablet 5 [...] RN)2102 (Given - Provider: Chelsy Bush, ЮЛИЯ) 0834 (Given - Provider: Anu Wolff RN)2022 [...] Chelsy Bush RN)0635 (Given - Provider: Chelsy Bush, ЮЛИЯ)1322 (Given - Provider: Anu Wolff RN)2031 (Given - Provider: Soco Milton, ЮЛИЯ) 0245 (Given - Provider: Soco Milton, ЮЛИЯ)0848 (Given - Provider: Suzette Arciniega, ЮЛИЯ) Linked [...] documented as of this encounter Care Teams Neurosurgeon Relationship Specialty Start Date End Date Enedina Mcguire NP [address] [place] [id number] PCP - General Internal Medicine 10/05/24 documented as of this encounter
--- OUTSIDE RECORDS SUMMARY | 2024-10-10 10:36 | XMS_ITS | Encounter Summary ---
Author Organization [facility] Address [facility] [place] [address] Care Team Providers Care Welt Cutter Name Role Phone Enedina Mcguire NP Primary Care Provider [phone] Source Comments This information has been disclosed [...] release of HIV test results or diagnoses. [id number] Health Reason for Visit * Auth/Cert (Routine) Specialty Diagnoses / Procedures Referred By Shane hernadez Referred To Contact General Internal Medicine Diagnoses [facility] [address] [place] [address] Phone: tel: Referral ID Status Reason Start Date Expiration Date Visits Re quested Visits Authorized [id number] 1 1 Encounter Details Date Type Department Care Team (Late st Contact Info) Description 10/10/2024 10:36 AM EDT - 10/10/2024 11:06 AM EDT Surgery [facility] ENDOSCOPY [address] [place] [address] Lino Soto MD [address] [place] [phone] EGD Surgery Details Date/Time Status Location OR Service Patient Class Case Class Case Type Trauma Case? 10/10/2024 10:36 AM Posted ENDOSCOPY E2 Gastroenterology Inpatient EGD/Sm Bowel Panel 1 Procedure LRB Anes Op Region Wound Class Comments EGD N/A MAC (Monitor [facility]) Clean Contaminated Surgeon Surgeon Role Service [...] time in the past 12 m [facility], were you homeless or living in a long-term (including now)? No 10/06/2024 Yearly Questionnaire Answer [...] Kandy Fuentes - 10/17/2024 10:29 AM EDT [facility] Care Management Discharge Summary Patient name: [...] post discharge: Not Applicable Kandy BAE RN [phone] * William Blount MD - 10/17/2024 8:50 AM EDT [facility] Inpatient Discharge Summary Patient: Julien Gilbert Age: 39 y.o. CSN: [id number] Date of Admission: 10/05/2024 Date of Discharge: [...] Case IDs Date Procedure Surgeon Location Status [id number] 10/10/24 EGD Lino Soto MD ENDOSCOPY Comp [id number] 10/14/24 Left Heart Cath Irving Matta MD [...] at 10/08/2024 1:12 PM EDT US Duplex Spd-Ble-Oketexo Comp Final Result IMPRESSION: ABDOMEN 1. Cirrhotic [...] 90 tablet Refills: 0 naloxone 4 mg/actuation Colome Commonly known as: NARCAN Apply 1 spray [...] medications were sent to [facility] [address] Hours: Sunday - Sunday: 8:00AM - 6:00PM FLUoxetine 20 MG capsule lactulose 10 gram/15 mL solution loratadine 10 mg tablet methocarbamoL 500 MG tablet midodrine 10 MG tablet naloxone 4 mg/actuation Colome oxyCODONE 5 MG immediate release tablet Discharge [...] [M54.2, Z98.890] 10/07/2024 SBP (spontaneous bacterial peritonitis) ([facility]) [K65.2] 09/08/2024 Anemia [D64.9] 09/05/2024 Metabolic acidosis [...] Order Questions: Select Supplement: Boost-1 kcal/ml supplement ([facility] only) As listed above, low [...] EDT Hospital Medicine Attending Supervision Note Julien Giblert was seen on rounds with the resident [...] AM EDT 10/17/2024 naloxone (NARCAN) 4 mg/actuation Colome Apply 1 spray in one nostril if [...] Hughes MD - 10/17/2024 10:23 AM EDT [facility] HEPATOLOGY PROGRESS NOTE Name: Julien Gilbert CSN: [id number] Consulted by: Chelsy Lerner MD Reason for [...] Yes Past Week naloxone (NARCAN) 4 mg/actuation Colome Apply 1 spray in one nostril if [...] nucleated cells, <2000 RBCs 10% Polynuclear, 90% Trimble nuc. There were initial reports of gram [...] Other (See Comments) Became Manic Cosigned by Chniedu Sidhu MD at 10/18/2024 1:23 PM EDT [...] of chemical dependency treatment as outpatient. - [facility] with no obstructive coronary disease - Psych eval for PTSD With recommendation of sertraline - Given his renal dysfunction, will plan to list for [facility]K when he qualifies on 10/22/2024. Labs next week - Plan for d/c today Bobby Sidhu MD Transplant Livestock Farmer Please see the body of the resident, [...] remains <30 until October 22. Waiting for [facility] today. ASSESSMENT NADIYA on CKD, [...] Staff. Jeremiah Gamino PGY4 Nephrology. Pager no. [phone] Chief Complaint No chief complaint on file. [...] at 10/08/2024 1:12 PM EDT US Duplex Dtt-Xzj-Pqeaabf Comp Final Result IMPRESSION: ABDOMEN 1. Cirrhotic [...] no head imaging has been performed at [facility]. -CT Head w/o contrast -Imaging showed no [...] Order Questions: Select Supplement: Boost-1 kcal/ml supplement ([facility] only) Code Status: Full Code Signed: WILLIAM BLOUNT MD 10/16/2024, 2:16 PM Cosigned by Chelsy Lerner MD at 10/16/2024 5:38 PM EDT Associated attestation - Chelsy Lerner MD - 10/16/2024 5:38 PM EDT [facility] Medicine Attending Supervision Note Julien [...] another specialty or practice, other licensed professional (PT/OT/WELT CUTTER/RT), or a non-medical community professional: Hepatology, Interventional [...] due to positioning during LHC on 10/14. [place] the worst in CVR, but has improved [...] Kumar, DMITRY - 10/16/2024 1:08 PM EDT [facility] Medical Nutrition Therapy Follow-Up Diet Order/Nutrition Support: Regular diet, Boost TID - Vanilla preference Pertinent Information: This is a 39 year old male history of ETOH cirrhosis d/b HE, ascites with SBP who is admitted for AMS. Precipitant of his HE likely SBP. Diagnostic paracentesis at OSH reportedly showed 61 nucleated cells, <2000 RBCs 10% Polynuclear, 90% Trimble nuc. There were initial reports of gram [...] Based on CBW of 119.5 kg Kcals/day: 6055-8038 (18-21 kcals/kg) Protein g/day: 119-143 (1-1.2 g/kg) [...] Kumar RD, LD Clinical Dietitian Contact via [employer]IO * Jerad Hughes MD - 10/16/2024 11:03 AM EDT [facility] HEPATOLOGY PROGRESS NOTE Name: Julien Gilbert CSN: [id number] Consulted by: Chelsy Lerner MD Reason for [...] liver (CMS-HCC) Esophageal varices (CMS-HCC) Hepatorenal syndrome ([facility]) Hypertension Other hyperlipidemia 07/26/2024 Renal cell carcinoma (CMS-HCC) Thrombocytopenia ([facility]) Thyroid disease Past Surgical History: [...] nucleated cells, <2000 RBCs 10% Polynuclear, 90% Trimble nuc. There were initial reports of gram [...] baseline. - If GFR < 30 until 6/11 will qualify for [facility] -#Ascites -PRN paracentesis [...] of chemical dependency treatment as outpatient. - [facility] with no obstructive coronary disease - Psych eval for PTSD With recommendation of sertraline - Given his renal dysfunction, will plan to list for [facility] when he qualifies on 10/22/2024. - Will follow Bobby Sidhu MD Transplant Livestock Farmer Please see the body of the resident, [...] remains <30 until October 22. Waiting for [facility] today. ASSESSMENT NADIYA on CKD, [...] COMMENT on 10/08/2024 Iron%- Iron replete PLAN -[facility] yesterday- patient remains at risk of contrast related injury on top of exisiting NADIYA for 24-48 hrs after contrast load. -He is volume overloaded -patient needs to follow up closely with nephrology after discharge Thank you for allowing us to participate in this patient's care. Discussed with Consult Staff. Jeremiah Gamino PGY4 Nephrology. Pager no. [phone] Chief Complaint No chief complaint on file. [...] at 10/08/2024 1:12 PM EDT US Duplex Hwd-Fjm-Xctsuae Comp Final Result IMPRESSION: ABDOMEN 1. Cirrhotic [...] not tolerate Stress ECHO on 10/09 - [facility] today -Per GI recs, started [...] no head imaging has been performed at [facility]. -CT Head w/o contrast -Imaging showed no [...] Order Questions: Select Supplement: Boost-1 kcal/ml supplement ([facility] only) Code Status: Full Code [...] another specialty or practice, other licensed professional (PT/OT/WELT CUTTER/RT), or a non-medical community professional: Hepatology, Interventional [...] due to positioning during LHC on 10/14. [place] the worst in CVR, but has improved [...] Hughes MD - 10/15/2024 10:15 AM EDT [facility] PROGRESS NOTE Name: Julien Gilbert CSN: [id number] Consulted by: Chelsy Lerner MD Reason for [...] nucleated cells, <2000 RBCs 10% Polynuclear, 90% Trimble nuc. There were initial reports of gram [...] of chemical dependency treatment as outpatient. - [facility] yesterday with no obstructive coronary disease - Psych eval for PTSD and medical management - Given his renal dysfunction, will plan to list for [facility] when he qualifies on 10/22/2024. - Will follow Bobby Sidhu MD Transplant Livestock Farmer Please see the body of the resident, [...] Quan MD - 10/14/2024 2:34 PM EDT [facility] Department of Cardiovascular Health and Diseases [...] remains <30 until October 22. Waiting for [facility] today. ASSESSMENT NADIYA on CKD, [...] Staff. Jeremiah Gamino PGY4 Nephrology. Pager no. [phone] Chief Complaint No chief complaint on file. [...] is Acute kidney injury superimposed on CKD ([facility]). No acute events overnight. Pt with chronic [...] at 10/08/2024 1:12 PM EDT US Duplex Fzh-Qvu-Mrzfror Comp Final Result IMPRESSION: ABDOMEN 1. Cirrhotic [...] not tolerate Stress ECHO on 10/09 - [facility] today -Per GI recs, started [...] no head imaging has been performed at [facility]. -CT Head w/o contrast -Imaging showed no [...] never required dialysis. Patient is going for [facility] today and will receive contrast, [...] Order Questions: Select Supplement: Boost-1 kcal/ml supplement ([facility] only) Code Status: Full Code [...] another specialty or practice, other licensed professional (PT/OT/WELT CUTTER/RT), or a non-medical community professional: Hepatology, Interventional [...] Remainder of plan per resident note. CHELSY LENRER MD Attending Physician Department of Internal Medicine 10/14/2024 11:34 AM * Jerad Hughes MD - 10/14/2024 7:42 AM EDT [facility] HE[facility]Y PROGRESS NOTE Name: Julien Gilbert CSN: [id number] Consulted by: Chelsy Lerner MD Reason for [...] nucleated cells, <2000 RBCs 10% Polynuclear, 90% Trimble nuc. There were initial reports of gram [...] eval ongoing. Transplant work up ongoing - [facility] today - Transplant nephrology following [...] - Will follow Bobby Sidhu MD Transplant Livestock Farmer Please see the body of the resident, [...] Staff. Jeremiah Gamino PGY4 Nephrology. Pager no. [phone] Chief Complaint No chief complaint on file. [...] Hughes MD - 10/13/2024 12:33 PM EDT [facility] HE[facility] PROGRESS NOTE Name: Julien Gilbert CSN: [id number] Consulted by: Fouzia Rene MD Reason for [...] nucleated cells, <2000 RBCs 10% Polynuclear, 90% Trimble nuc. There were initial reports of gram [...] eval ongoing. Transplant work up ongoing - [facility] today - Transplant nephrology following [...] - Will follow Bobby Sidhu MD Transplant Livestock Farmer Please see the body of the resident, [...] any interval liver pathology. * Rebekah Linares, [facility] - 10/13/2024 12:30 PM EDT Start Time: [...] no psychomotor abnormalities Cognition: short term and mcc memory intact Attitude: cooperative Affect: full range [...] Fabian, RD - 10/13/2024 10:49 AM EDT [facility] Medical Nutrition Therapy Reason(s) for [...] Order Questions: Select Supplement: Boost-1 kcal/ml supplement ([facility] only) Pertinent Information: Julien Gilbert is a 39 y.o. Male admitted for Acute kidney injury superimposedon CKD ([facility]) Pt noted to have waxing and waning [...] kg) Body mass index is 32.07 kg/m??. [place] Body Weight: 202 lbs (91.8 kg) +/- 10% Weight History: Wt Readings from Last 10 Encounters: 10/10/24 (!) 263 lb 8 oz (119.5 kg) 09/05/24 (!) 262 lb 9.6 oz (119.1 kg) 09/02/24 (!) 258 lb (117 kg) 08/17/24 (!) 242 lb 11.2 oz (110.1 kg) 07/28/24 (!) 245 lb (111.1 kg) Estimated Nutrition Needs: Based on CBW of 119.5 kg Kcals/day: 2872-8457 (18-21 kcals/kg) Protein g/day: 119-143 (1-1-2 g/kg) [...] Dietitian - Solid Organ Transplant Contact via [employer] Chat * Eileen Schroeder MD, PhD - 10/13/2024 8:19 AM EDT Department of Internal Medicine Daily Progress Note Chief Complaint / Reason for Follow-Up Julien Gilbert is a 39 y.o. male on hospital day 8. The principal reason for today's follow up visit is Acute kidney injury superimposed on CKD ([facility]). NAEON Pt felt well this AM. A&O [...] at 10/08/2024 1:12 PM EDT US Duplex Axq-Lpl-Gvjsozu Comp Final Result IMPRESSION: ABDOMEN 1. Cirrhotic [...] no head imaging has been performed at [facility]. -CT Head w/o contrast -Imaging showed no [...] Order Questions: Select Supplement: Boost-1 kcal/ml supplement ([facility] only) Code Status: Full Code [...] I reviewed the documentation by the medical call or contact centre team leader and agree as documented. Any additions or clarifications are listed below. Daily plan was discussed with patient at bedside and questions addressed. Patient ID: Julien Gilbert is a 39 y.o. male currently admitted for Acute kidney injury superimposed on CKD ([facility]) Supplemental History/ ROS: No acute [...] for Acute kidney injury superimposed on CKD ([facility]) Active Problems: NADIYA (acute kidney injury) on CKD ([facility]): Hepatorenal syndrome. Appreciate nephrology consult. S/p albumin [...] was non-diagnostic due to hypotension. Plan for [facility] today, but now moved to [...] when medically ready. Consider d/c home after [facility] tomorrow. FOUZIA RENE MD Attending Physician Department of Internal Medicine 10/13/2024 Medical Decision Making: // LEVEL 2 MOD One chronic illness with exacerbation, progression, or side effects of treatment Discussed with physician/SAWYER from another specialty or practice, other licensed professional (PT/OT/WELT CUTTER/RT), or a non-medical community professional: Nephrology, Hepatology [...] is Acute kidney injury superimposed on CKD ([facility]). DREW Pt felt well this AM. A&O [...] at 10/08/2024 1:12 PM EDT US Duplex Vkv-Iru-Jyfcddt Comp Final Result IMPRESSION: ABDOMEN 1. Cirrhotic [...] no head imaging has been performed at [facility]. -CT Head w/o contrast -Imaging showed no [...] Order Questions: Select Supplement: Boost-1 kcal/ml supplement ([facility] only) Code Status: Full Code [...] I reviewed the documentation by the medical call or contact centre team leader and agree as documented. Any [...] another specialty or practice, other licensed professional (PT/OT/WELT CUTTER/RT), or a non-medical community professional: Nephrology, Hepatology [...] tid. cardiac workup pre txp. pLan for [facility] Sunday Liver transplant workup per [...] concern for hepatorenal syndrome.` Patient came from [facility], paracentesis was performed yesterday on 10/05? Fluid [...] Data and Imaging Recent Labs 10/10/24 0510/11/24 03010/12/24 0544 WBC 5.1 4.0 3.3* HGB [...] 706.9 (H) 10/08/2024 No results found for: WKCSOHMY20 , FOLATE Lab Results Component Value Date [...] CRUR No results found for: MICROALBUR , [id number] In addition to the above an extensive [...] 4.6 10/12/2024 Lab Results Component Value Date UFHA81C 7.1 (L) 10/08/2024 PLAN Monitor renal panel [...] 5:44 AM Colten Huertas MD, KISHOR LIN, TESSAKF plate maker Div. of Nephrology [facility] E-mail: [email or web address] This note was completely edited, written [...] Rene MD Interval hx No issues. Pending [facility]. Assessment: Renal Function: Cr: 2.77 [...] tid. cardiac workup pre txp. pLan for [facility] Sunday 4. Liver transplant workup [...] concern for hepatorenal syndrome.` Patient came from [facility], paracentesis was performed yesterday on 10/05? Fluid [...] 706.9 (H) 10/08/2024 No results found for: KWFVZLJQ11 , FOLATE Lab Results Component Value Date [...] CRUR No results found for: MICROALBUR , [id number] In addition to the above an extensive [...] 3.5 10/11/2024 Lab Results Component Value Date JMBM32P 7.1 (L) 10/08/2024 PLAN Monitor renal panel [...] 3:02 AM Colten Huertas MD, KISHOR LIN, PETE plate maker Div. of Nephrology [facility] E-mail: [email or web address] This note was completely edited, written [...] at 10/08/2024 1:12 PM EDT US Duplex Bwe-Qjo-Lidkxqz Comp Final Result IMPRESSION: ABDOMEN 1. Cirrhotic [...] from outside facility. Will engage with them daily([phone]. Ask to speak to a tech) about [...] no head imaging has been performed at [facility]. -CT Head w/o contrast -Imaging showed no [...] Order Questions: Select Supplement: Boost-1 kcal/ml supplement ([facility] only) Code Status: Full Code [...] I reviewed the documentation by the medical call or contact centre team leader and agree as documented. Any additions or clarifications are listed below. Daily plan was discussed with patient at bedside and questions addressed. Patient ID: Julien Gilbert is a 39 y.o. male currently admitted for Acute kidney injury superimposed on CKD ([facility]) Supplemental History/ ROS: No acute [...] for Acute kidney injury superimposed on CKD ([facility]) Active Problems: Spontaneous Bacterial Peritonitis ([facility]): He remains afebrile and vital signs have [...] Continue home lactulose and rifaximin Decompensated cirrhosis ([facility]): Appreciate hepatology consult. He has [...] ascites NADIYA (acute kidney injury) on CKD ([facility]): Hepatorenal syndrome. Appreciate nephrology consult. [...] another specialty or practice, other licensed professional (PT/OT/WELT CUTTER/RT), or a non-medical community professional: Nephrology, Hepatology, [...] Strictly monitor urine output No Indication for WEB CONTENT COORDINATOR 3. Not a candidate for terlipressin per [...] Ignacio Queen MD Renal Fellow Pager # [phone] Chief Complaint No chief complaint on file. [...] concern for hepatorenal syndrome.` Patient came from [facility], paracentesis was performed yesterday on 10/05? Fluid pending for SBP analysis Histories he has a past medical history of Alcoholic cirrhosis of liver (CMS-HCC), Alcoholic hepatitis, Esophageal varices (CMS-HCC), Hepatorenal syndrome (CMS- HCC), Hypertension, Other hyperlipidemia (07/26/2024), Renal cell carcinoma ([facility]), Thrombocytopenia ([facility]), and Thyroid disease. he has no past [...] PHOS -- < > 3.5 3.4 3.3 QGCO05M 7.1* -- -- -- -- < > = values in this interval not displayed. Lab Results Component Value Date IRON 81 10/08/2024 TIBC SEE COMMENT 10/08/2024 FERRITIN 706.9 (H) 10/08/2024 No results found for: [id number] , FOLATE Lab Results Component Value Date [...] CRUR No results found for: MICROALBUR , [id number] In addition to the above an extensive [...] 3.3 10/10/2024 Lab Results Component Value Date OGJK01L 7.1 (L) 10/08/2024 PLAN Continue IV albumin [...] AM Colten Huertas MD, DELIA, KISHOR, FNKF plate maker Div. of Nephrology [facility] E-mail: [email or web address] This note was completely edited, written [...] to follow pt while pt is at [facility]. * Jodi Ortiz PharmD - 10/10/2024 10:27 AM EDT Clinical Pharmacy Service: Vancomycin Consult Progress Note Patient has been transitioned off of vancomycin therapy per team notes and orders. Pharmacy will sign-off at this time, please do not hesitate to consult again as needs arise. Thank you for involving pharmacy in the care of this patient. Jodi Ortiz PharmD Clinical Vertical Mill Operator, Internal Medicine Preferred contact: [employer] Clinical Fmozxto-Pu-Vvzl Pager: [phone] October 10, 2024 10:27 AM Laboratory Data [...] 10/07/2024 10:50 PM Giardia Cryptosporidium Antigens Final [id number] 10/07/2024 10:50 PM Ova and Parasite Comprehensive w/ Giardia/Crypto Final [id number] Feces 10/06/2024 1:04 AM #2 Blood culture-Peripheral site 2 Preliminary [id number] Peripheral 10/06/2024 1:04 AM #1 Blood culture-Peripheral site 1 Preliminary [id number] Peripheral Pharmacokinetics Lab Results (Last 7 days) Today 0523 Yesterday 0459 10/08 0536 [facility] Rdm 16.4 11.0 16.0 * Gerri Peterson MD - 10/10/2024 10:09 AM EDT [facility] HE[facility] PROGRESS NOTE Name: Julien Gilbert CSN: [id number] Consulted by: Fouzia Rene MD Reason for [...] nucleated cells, <2000 RBCs 10% Polynuclear, 90% Trimble nuc. Per OSH reports, ascitic fluid cultures [...] to achieving target HR. -cardiology consult for [facility] on Sunday - Transplant nephrology [...] from the original note were not included. [facility] Clinical Pharmacy Service: Vancomycin Monitoring [...] in sodium chloride 0.9 % 250 mL Fpsk2Ixx (Completed) 1,500 mg Once 10/09/2024 10/09/2024 Admin Instructions: Contact pharmacy if there is a question/concern of whether vancomycin should begiven based on serum drug levels. Use Vmyr4Odm Adapter - Mix Thoroughly Before Administration Route: Intravenous vancomycin (VANCOCIN) 1,500 mg in sodium chloride 0.9 % 250 mL Kjzp1Aat 1,500 mg Once 10/10/2024 10/11/2024 Admin Instructions: Contact pharmacy if there is a question/concern of whether vancomycin should begiven based on serum drug levels. Use Ufuk5Ywh Adapter - Mix Thoroughly Before Administration Route: [...] in sodium chloride 0.9 % 250 mL Qebc6Gju 1,500 mg 166.7 mL/hr 10/08/24 1259 New Bag vancomycin (VANCOCIN) 1,000 mg in sodium chloride 0.9 % 250 mL Ldsj5Auw 1,000 mg 250 mL/hr --Objective Data-- Vitals: [...] 53 53 54 Creatinine 2.85 2.89 3.04 [place] body weight: 86.8 kg (191 lb 5.7 oz) Adjusted ideal body weight: 99.9 kg (220 lb 3.5 oz) Estimated CrCl: ~35-45 mL/min --Cultures-- Microbiology Results Date and Time Order Name Sensitivity Status Organisms Specimen ID Source 10/07/2024 10:50 PM Giardia Cryptosporidium Antigens Final [id number] 10/07/2024 10:50 PM Ova and Parasite Comprehensive w/ Giardia/Crypto Final [id number] Feces 10/06/2024 1:04 AM #2 Blood culture-Peripheral site 2 Preliminary [id number] Peripheral 10/06/2024 1:04 AM #1 Blood culture-Peripheral site 1 Preliminary [id number] Peripheral --Vancomycin Concentrations-- Lab Results (Last 7 [...] for the consult. Jodi Ortiz PharmD Clinical Vertical Mill Operator, Internal Medicine Preferred contact: [employer] Clinical Nkzfzkq-Nd-Eftc Pager: [phone] October 10, 2024 9:13 AM * Eileen Schroeder MD, PhD - 10/10/2024 8:17 AM EDT Department of Internal Medicine Daily Progress Note Chief Complaint / Reason for Follow-Up Julien Gilbert is a 39 y.o. male on hospital day 5. The principal reason for today's follow up visit is Acute kidney injury superimposed on CKD ([facility]). KARENEON Pt was very conversational today. A&O x [...] at 10/08/2024 1:12 PM EDT US Duplex Yjm-Gji-Hcqpbbw Comp Final Result IMPRESSION: ABDOMEN 1. Cirrhotic [...] from outside facility. Will engage with them daily([phone]. Ask to speak to a tech) about [...] [facility] head [facility] [facility]. -CT Head w/o contrast -Imaging showed no [...] Order Questions: Select Supplement: Boost-1 kcal/ml supplement ([facility] only) Code Status: Full Code [...] I reviewed the documentation by the medical call or contact centre team leader and agree as documented. Any [...] another specialty or practice, other licensed professional (PT/OT/WELT CUTTER/RT), or a non-medical community professional: Nephrology, Hepatology, [...] Strictly monitor urine output No Indication for WEB CONTENT COORDINATOR Not a candidate for terlipressin per liver due to HE, liver and kidney failure, on midodrine tid. Considering para today, cardiac workup pre txp Liver transplant workup per GI/ Primary team, considering for SLK, seen by renal transplant team Thank you for allowing us to participate in this patient's care. Discussed with Consult Staff. Ignacio Queen MD Renal Fellow Pager # [phone] Chief Complaint No chief complaint on file. [...] concern for hepatorenal syndrome.` Patient came from [facility], paracentesis was performed yesterday on 10/05? Fluid [...] 9.0 9.3 PHOS -- 3.5 3.5 3.4 [id number] 7.1* -- -- -- Lab Results Component Value Date IRON 81 10/08/2024 TIBC SEE COMMENT 10/08/2024 FERRITIN 706.9 (H) 10/08/2024 No results found for: TGRBGBSH16 , FOLATE Lab Results Component Value Date [...] CRUR No results found for: MICROALBUR , [id number] In addition to the above an extensive [...] 3.4 10/09/2024 Lab Results Component Value Date FPWL33S 7.1 (L) 10/08/2024 PLAN Continue IV albumin [...] 1:05 PM Colten Huertas MD, KISHOR LIN, TESSAKF plate maker Div. of Nephrology [facility] E-mail: [email or web address] This note was completely edited, written [...] Peterson MD - 10/09/2024 1:07 PM EDT [facility] HEPATOLOGY PROGRESS NOTE Name: Julien Gilbert CSN: [id number] Consulted by: Fouzia Rene MD Reason for [...] nucleated cells, <2000 RBCs 10% Polynuclear, 90% Trimble nuc. Fluid cultures reportedly grew gram + [...] from the original note were not included. [facility] Clinical Pharmacy Service: Vancomycin Monitoring [...] in sodium chloride 0.9 % 250 mL Eonb8Rwu (Completed) 1,000 mg Once 10/08/2024 10/08/2024 Admin Instructions: Contact pharmacy if there is a question/concern of whether vancomycin should begiven based on serum drug levels. Use Cchd7Hlo Adapter - Mix Thoroughly Before Administration Route: Intravenous vancomycin (VANCOCIN) 1,500 mg in sodium chloride 0.9 % 250 mL Acvm6Fxa 1,500 mg Once 10/09/2024 10/10/2024 Admin Instructions: Contact pharmacy if there is a question/concern of whether vancomycin should begiven based on serum drug levels. Use Ijrl3Wyt Adapter - Mix Thoroughly Before Administration Route: [...] in sodium chloride 0.9 % 250 mL Fgam3Tbs 1,000 mg 250 mL/hr 10/06/24 1413 New [...] 10/07/2024 10:50 PM Giardia Cryptosporidium Antigens Final [id number] 10/07/2024 10:50 PM Ova and Parasite Comprehensive w/ Giardia/Crypto Final [id number] Feces 10/06/2024 1:04 AM #2 Blood culture-Peripheral site 2 Preliminary [id number] Peripheral 10/06/2024 1:04 AM #1 Blood culture-Peripheral site 1 Preliminary [id number] Peripheral --Vancomycin Concentrations-- Lab Results (Last 7 [...] for the consult. Jodi Ortiz PharmD Clinical Vertical Mill Operator, Internal Medicine Preferred contact: [employer] Clinical Thutuwk-Rb-Anlq Pager: [phone] October 09, 2024 8:29 AM * Eileen Schroeder MD, PhD - 10/09/2024 8:00 AM EDT Department of Internal Medicine Daily Progress Note Chief Complaint / Reason for Follow-Up Julien Gilbert is a 39 y.o. male on hospital day 4. The principal reason for today's follow up visit is Acute kidney injury superimposed on CKD ([facility]). KARENEON and father at bedside Pt fully [...] at 10/08/2024 1:12 PM EDT US Duplex Nbm-Klp-Hvpnctc Comp Final Result IMPRESSION: ABDOMEN 1. Cirrhotic [...] from outside facility. Will engage with them daily([phone]. Ask to speak to a tech) about [...] no head imaging has been performed at [facility]. -CT Head w/o contrast -Imaging showed no [...] Order Questions: Select Supplement: Boost-1 kcal/ml supplement ([facility] only) Code Status: Full Code [...] I reviewed the documentation by the medical call or contact centre team leader and agree as documented. Any additions or clarifications are listed below. Daily plan was discussed with patient at bedside and questions addressed. Patient ID: Julien Gilbert is a 39 y.o. male currently admitted for Acute kidney injury superimposed on [place] Supplemental History/ ROS: No acute events overnight [...] Acute kidney injury superimposed on CKD ([facility] Active Problems: Anemia: S/p 1 unit PRBC [...] another specialty or practice, other licensed professional (PT/OT/WELT CUTTER/RT), or a non-medical community professional: Nephrology, Hepatology Labs reviewed (1 pt each): CBC, CMP, INR & other daily labs Review of notes from a different specialty or different practice: Nephrology, Anesthesiology hepatology, * Gerri Peterson MD - 10/08/2024 1:40 PM EDT [facility] HEPATOLOGY PROGRESS NOTE Name: Julien Gilbert CSN: [id number] Consulted by: Fouzia Rene MD Reason for [...] nucleated cells, <2000 RBCs 10% Polynuclear, 90% Trimble nuc. Fluid cultures reportedly grew gram + [...] disease (ESRD) patient in a hospital based, [facility] based, or home setting. -At the time [...] I have discussed this plan with the laboratory coordinator and the liver transplant team. Cosigned [...] from the original note were not included. [facility] Clinical Pharmacy Service: Vancomycin Monitoring [...] in sodium chloride 0.9 % 250 mL Yzoe8Imx 1,000 mg Once 10/08/2024 10/09/2024 Admin Instructions: Contact pharmacy if there is a question/concern of whether vancomycin should begiven based on serum drug levels. Use Hpmv6Jar Adapter - Mix Thoroughly Before Administration Route: [...] 10/07/2024 10:50 PM Giardia Cryptosporidium Antigens Final [id number] 10/07/2024 10:50 PM Ova and Parasite Comprehensive w/ Giardia/Crypto In process [id number] Feces 10/06/2024 1:04 AM #2 Blood culture-Peripheral site 2 Preliminary [id number] Peripheral 10/06/2024 1:04 AM #1 Blood culture-Peripheral site 1 Preliminary [id number] Peripheral --Vancomycin Concentrations-- Lab Results (Last 7 days) Today 05 Yesterday 0600 Vanc Rdm 16.0 21.1 --Assessment [...] for the consult. Jodi Ortiz PharmD Clinical Vertical Mill Operator, Internal Medicine Preferred contact: [employer] Clinical Swxfhka-Mp-Yolm Pager: [phone] October 08, 2024 9:13 AM * Eileen [...] FREET4 0.74 09/03/2024 Diagnostic Studies US Duplex Tjn-Ccj-Anazfeu Comp Final Result IMPRESSION: ABDOMEN 1. Cirrhotic [...] no head imaging has been performed at [facility]. -CT Head w/o contrast -Imaging showed no [...] Order Questions: Select Supplement: Boost-1 kcal/ml supplement ([facility] only) Code Status: Full Code [...] I reviewed the documentation by the medical call or contact centre team leader and agree as documented. Any [...] another specialty or practice, other licensed professional (PT/OT/WELT CUTTER/RT), or a non-medical community professional: Nephrology, Hepatology [...] Strictly monitor urine output No Indication for WEB CONTENT COORDINATOR Not a candidate for terlipressin per liver due to HE, liver ans kidney failure, on midodrine tid Liver transplant workup per GI/ Primary team, considering for SLK Thank you for allowing us to participate in this patient's care. Discussed with Consult Staff. Ignacio Queen MD Renal Fellow Pager # [phone] Chief Complaint No chief complaint on file. [...] concern for hepatorenal syndrome.` Patient came from [facility], paracentesis was performed yesterday on 10/05? Fluid [...] TIBC , FERRITIN No results found for: BRWCIKRZ25 , FOLATE Lab Results Component Value Date COLORU Yellow 10/06/2024 CLARITYU Clear 10/06/2024 PROTEINUA Negative 10/06/2024 PHUR 6.0 10/06/2024 LABSPEC 1.014 10/06/2024 GLUCOSEU Negative 10/06/2024 BLOODU Negative 10/06/2024 LEUKOCYTESUR Negative 10/06/2024 NITRITE Negative 10/06/2024 BILIRUBINUR Negative 10/06/2024 UROBILINOGEN <2.0 10/06/2024 RBCUA 1 09/03/2024 WBCUA 1 09/03/2024 BACTERIA Occasional (A) 09/03/2024 Recent Labs 10/06/24 132 NAUR <10 KUR 50.0 CLUR <15 No results found for: MICROALBUR , [id number] In addition to the above an extensive [...] 4.0 10/08/2024 Lab Results Component Value Date WCUZ60W 7.1 (L) 10/08/2024 PLAN Continue IV albumin [...] 5:36 AM Colten Huertas MD, KISHOR LIN, FNDeclanF plate maker Div. of Nephrology [facility] E-mail: [email or web address] This note was completely edited, written [...] which was performed on 10/08/2024 * Jodi Ortiz, PharmD - 10/07/2024 5:01 PM EDT Images from the original note were not included. [facility] Clinical Pharmacy Service: Vancomycin Monitoring [...] AM #2 Blood culture-Peripheral site 2 Preliminary [id number] Peripheral 10/06/2024 1:04 AM #1 Blood culture-Peripheral site 1 Preliminary [id number] Peripheral --Vancomycin Concentrations-- Lab Results (Last 7 [...] for the consult. Jodi Ortiz PharmD Clinical Vertical Mill Operator, Internal Medicine Preferred contact: [employer] Clinical Krfthoa-Nk-Jxnn Pager: [phone] October 07, 2024 5:01 PM * Yamile [...] Peterson MD - 10/07/2024 11:33 AM EDT [facility] HEPATOLOGY PROGRESS NOTE Name: Julien Gilbert CSN: [id number] Consulted by: Fouzia Rene MD Reason for Consult: Decompensated Cirrhosis History of Present Illness: Julein Gilbert is a 39 y.o. with history [...] nucleated cells, <2000 RBCs 10% Polynuclear, 90% Trimble nuc. Fluid cultures reportedly grewgram + rods. [...] liver selection meeting and clearance by social work program coordinator. Please order CT cardiac coronary evaluation, [...] labs within last 3600 days. Anemia Plan: Nadiay on CKD, likely HRS, likely triggered by recent para and diarrhea, recent cr around 2.4, continue albumin challenge, rule 0ut SBP, will obtain OSH records 2. Obtain renal usg, outside imaging not yet available in chart 3. Continue Bicarb tablets 1300 3 times daily for NAGMA related to diarrhea Strictly monitor urine output No Indication for WEB CONTENT COORDINATOR Liver transplant workup per GI/ Primary team Thank you for allowing us to participate in this patient's care. Discussed with Consult Staff. Ignacio Queen MD Renal Fellow Pager # [phone] Chief Complaint No chief complaint on file. [...] concern for hepatorenal syndrome.` Patient came from [facility], paracentesis was performed yesterday on 10/05? Fluid [...] PLT 53* 52* 35* Recent Labs 10/06/24 04010/06/24 0737 10/07/24 0600 NA 129* 129* 132* [...] TIBC , FERRITIN No results found for: QFHWKBSZ19 , FOLATE Lab Results Component Value Date [...] <15 No results found for: MICROALBUR , [id number] In addition to the above an extensive [...] PHOS 4.2 10/07/2024 No results found for: SEGC24M PLAN Continue IV albumin Monitor renal panel [...] AM Colten Huertas MD, KISHOR LIN FNKF plate maker Div. of Nephrology [facility] E-mail: [email or web address] * Carmen Bernal, OT - 10/07/2024 [...] at 10/06/2024 2:33 AM EDT US Duplex Ija-Xlb-Rvotaso Comp (Results Pending) US Abdomen Complete (Results [...] no head imaging has been performed at [facility]. -CT Head w/o contrast -Imaging showed no [...] Order Questions: Select Supplement: Boost-1 kcal/ml supplement ([facility] only) Code Status: Full Code [...] I reviewed the documentation by the medical call or contact centre team leader and agree as documented. Any [...] home lactulose and rifaximin Spontaneous Bacterial Peritonitis ([facility]): Cultures from OSH are growing gram- positive organisms.He is on vancomycin and ceftriaxone for now. Will follow-up on speciation and sensitivities. For now, he is afebrile and his white counts have trended down and mental status is improving. Decompensated cirrhosis ([facility]): Appreciate hepatology consult. He has started his transplant evaluation as an outpatient. We will follow-up with hepatology to discuss any inpatient testing that may need to be needed. - MELD labs daily - Continue home regimen with ursodiol, rifaximin and lactulose NADIYA (acute kidney injury) ([facility]): Appreciate nephrology consult. Likely has [...] needed for pain. Continue to monitor. Thrombocytopenia ([facility]) Renal mass, left CKD (chronic kidney disease) stage 4, GFR 15-29 ml/min ([facility]) Metabolic acidosis with normal anion [...] another specialty or practice, other licensed professional (PT/OT/WELT CUTTER/RT), or a non-medical community professional: Nephrology, Hepatology Labs reviewed (1 pt each): CMP, CBC Test results reviewed (1 pt each): CXR, Head CT Review of notes from a different specialty or different practice: Nephrology, hepatology Use of parenteral controlled substances * Kiet Gardiner, PharmD - 10/06/2024 1:07 PM EDT Images from the original note were not included. [facility] Clinical Pharmacy Service: Vancomycin Monitoring [...] AM #2 Blood culture-Peripheral site 2 Preliminary [id number] Peripheral 10/06/2024 1:04 AM #1 Blood culture-Peripheral site 1 Preliminary [id number] Peripheral --Vancomycin Concentrations-- Lab Results (Last 7 [...] US Retroperitoneal complete (Results Pending) US Duplex Lyx-Gwe-Attwnct Comp (Results Pending) CT Head WO contrast [...] PM EDT Hospital Medicine Attending Supervision Note [facility] // [facility] Julien Gilbert was seen 10/06/24 on rounds [...] Lerner MD - 10/05/2024 2:42 PM EDT [facility] Department of Medicine TRANSFER CALL NOTE Location [facility] ED History of Present Illness [...] nearest ED, with plan to transfer to [facility] if needing admission. In the [...] Studies: Na 129 K 4.2 Cl 101 Siccvz68 BUN 62 (up from baseline) Cr 3.6 [...] Quan MD - 10/14/2024 1:10 PM EDT [facility] ASSESSMENT, HISTORY & PHYSICAL Date: [...] Neuro: AOx3 AUC For Cath Indication(s) for Teletray Operator Visit: Visit Indicators: Suspected CAD 2. Chest Pain Symptom Assessment: Asymptomatic 3. Heart Failure: Yes Class II 4. CHSA Clinical Frailty Scale: Mildly Frail Sedation Plan: Moderate Sedation with Local Anesthesia Antibiotic prophylaxis is not indicated. Mani Quan Interventional Printer Apprentice Pager: [phone] [1] Patient Active Problem List Diagnosis Decompensated [...] blood per rectum) SBP (spontaneous bacterial peritonitis) ([facility]) C Diff Diarrhea C. difficile diarrhea Neck pain with history of cervical spinal surgery Cosigned by Irving Matta MD at 10/16/2024 10:54 AM EDT Associated attestation - Irving Matta MD - 10/16/2024 10:54 AM EDT Agree * Gerri Peterson MD - 10/10/2024 10:05 AM EDT [facility] ASSESSMENT, HISTORY & PHYSICAL Date: [...] Patient Active Problem List Diagnosis Decompensated cirrhosis ([facility]) Acute kidney injury superimposed on CKD ([facility]) Alcohol use disorder Metabolic encephalopathy Hypertension Other hyperlipidemia Thrombocytopenia ([facility]) Renal mass, left Abdominal pain Hypokalemia CKD (chronic kidney disease) stage 4, GFR 15-29 ml/min ([facility]) Metabolic acidosis with normal anion gap and bicarbonate losses GERD (gastroesophageal reflux disease) Hypothyroidism Itching Anemia BRBPR (bright red blood per rectum) SBP (spontaneous bacterial peritonitis) ([facility]) C Diff Diarrhea C. difficile [...] Pulse: 101 93 96 Resp: 18 18 Temp: 97.9 ??F (36.6 ??C) [...] Strain: Low Risk (07/09/2024) Received from [facility] Overall Financial Resource Strain (CARDIA) Difficulty [...] No Physical Activity: Unknown (07/14/2024) Received from [facility] Exercise Vital Sign Days of Exercise per Week: Patient unable to answer Minutes of Exercise per Session: Not on file Stress: Patient Unable To Answer (07/14/2024) Received from [email or web address] [employer] [facility] [employer] - Occupational Stress Questionnaire Feeling of Stress : Patient unable to answer Social Connections: Patient Unable To Answer (07/14/2024) Received from [facility] Social Connection and Isolation Panel [NHANES] Frequency of Communication with Friends and Family: Patient unable to answer Frequency of Social Gatherings with Friends and Family: Patient unable to answer Attends Spiritism Services: Patient unable to answer Active Member [...] 1418 pantoprazole 40 mg QAM AC Bisi Akana maría, DO 40 mg at 10/09/24 0802 potassium [...] values in this interval not displayed. Imaging: @[id number]@ I have personally reviewed the imaging and have noted the following: Large recanalized umbilical vein Perihilar varices Replaced right hepatic artery Splenomegaly Spontaneous splenorenal shunt Large volume ascites, No portal vein thrombosis Assessment/Plan: A 39 y.o. male with ETOH decompensated by ascites, hepatic encephalopathy,bleeding esophageal Varices. Use and allocation of SCD, FOUNDRY PROCESS ENGINEER, DCD and LDLT allografts discussed in detail. [...] from surgery (5%). I also explained the [facility] risks of transplantation and immunosuppression including viral infection and cancer both solid organand lymphoma. Kemar Sahni MD, Fellow, Multiorgan Abdominal Transplant Surgery. [facility]. 10/09/2024 3:16 PM [1] Allergies Allergen [...] Ortiz MD - 10/06/2024 12:00 AM EDT [facility] Internal Medicine - History and Physical [...] taken to Radiology overnight for imaging upload. [facility] performed a bedside paracentesis and sent studies for SBP analysis. Willcontact [facility] to see if labs have resulted. Review of Systems 14 pt ROS conducted and negative aside from that mentioned in above HPI Past Medical and Social History Lives in [place], [place] at bedside Notes that the patient [...] OSH Repeat labs pending on admission to [facility] Assessment & Plan Julien Gilbert [...] AM EDT Hospital Medicine Attending Supervision Note [facility] // [facility] Julien Gilbert was seen 10/06/24 on rounds [...] confusion and lethargy. HE was seen at [facility] ED were CT head unremarkable and RUQ with gallstones, abdominal ascites diagnostic para done and started on empiric CTX. Labs remarkable at OSH for K 4.2 Cl 101 Uuzirn61 BUN 62 (up from baseline) Cr 3.6 [...] another specialty or practice, other licensed professional (PT/OT/WELT CUTTER/RT), or a non-medical community professional: ed team [...] Medicine Department of Internal Medicine Pager ID: [phone] 6:04 AM, 10/06/2024 documented in this encounter [...] of findings/procedures, which can be located in [facility] Procedures (or [facility] Imaging) Tabs. Please call with any questions. BAKARI WAHL CNP Vascular & Interventional Radiology 10/10/2024,1:55 PM [facility]: [phone] * Lino Soto MD - 10/10/2024 12:06 PM EDT EGD Brief Op Note Julien Gilbert 10/05/2024 - 10/10/2024 Pre-op Diagnosis: Alcoholic cirrhosis of liver with ascites (CMS-HCC) [K70.31] Post-op Diagnosis: Portal gastropathy, Medium size, non-bleeding esophageal varices Procedure(s): EGD Surgeon(s): Lino Soto MD Anesthesia: MAC (Monitor Anesthesia Care) Staff: Fellow: Gerri Peterson MD Endoscopy Nurse: Kandice Castaneda RN Bottom Sprayer: Diana Kemp Estimated Blood Loss: Minimal Specimens: Drains: There were no complications unless listed below. LINO SOTO MD Date: 10/10/2024 Time: 12:18 PM * Lino Soto MD - 10/10/2024 11:48 AM EDT [id number] Procedure Date: 10/10/2024 11:48 AM Patient Name: Julien Gilbert Date of : 1985 Admit Type: Inpatient Age: 39 Gender: Male Note Status: Finalized Attending MD: Lino Soto MD, [id number] Procedure: Upper GI endoscopy Indications: Gastroesopahgeal variceal [...] verified by the physician, the nurse, the shoulder joiner and the recreation technician in the pre-procedure area in the [...] to hypotension Procedure Code(s): --- Professional --- 56416, GC, Esophagogastroduodenoscopy, flexible, transoral; diagnostic, including collection of specimen(s) by brushing or washing, when performed (separate procedure) Diagnosis Code(s): --- Professional --- I85.00, Esophageal 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 All rights reserved. The codes documented in this report are preliminary and upon door attendant review may be revised to meet current [...] In: 12:10:16 PM Scope Out: 12:17:[address] [place] [address], Critical access hospital * Gill Le RN - 10/09/2024 4:00 [...] time. 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 Describes significant anxiety that [...] need for sleep. Has not been on [facility] [place] mental health since stopping the cymbalta. Reports [...] mother is and his father resides in [facility]. Patient earned a graduate degree and never served in the . 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 He was raised [employer]ian[employer] and denied current engagement in any community [...] from the original note were not included. [facility] General Cardiology Consult Note Referring Physician: [...] at baseline or with provocation, shows no antix-mh-zsom atrial level shunt. - Pulmonary arteries: Systolic [...] 10/13/24, please keep NPO on 10/12/24 at [place] Risks and benefits of new therapies added and new invasive and non-invasive procedures/diagnostic testing planned discussed with and understood by the patient/family who agree with the above plan. Plan discussed with the attending physician Dr. Blanco. Recommendations are preliminary until this note is co- signed by the attending. Follow up appointments with Cardiology can be scheduled by calling [phone]. Thank you for the opportunity to participate in this patient's care. Please call orpage with any questions. Leonor Garcia MD Printer Apprentice I have personally seen, examined, reviewed all [...] 0659 10/11/24 0700 - 10/12/24 0659 Shift 5389-3225 8702-8427 24 Hour Total 5147-2780 1255-6021 6728-8627 24 Hour Total INTAKE P.O. 5089 301 6681 P.O. 6147 095 3645 Boost (mL) - [facility] only 240 240 I.V.(mL/kg) 450(3.8) [...] Comments) Became Manic * Bakari Wahl, [facility] - 10/10/2024 10:07 AM EDT Interventional [...] CNP Vascular & Interventional Radiology 10/10/2024,1:54 PM [facility]: [phone]) [1] Social History Tobacco Use Smoking Status [...] EDTAssociated Order(s): IP CONSULT TO INFECTIOUS DISEASES [facility] DEPARTMENT OF INFECTIOUS DISEASE INITIAL NOTE Referring Physician: Fouzia Rene MD Consult Attending: Daria Garcia Patient: Julien Gilbert CSN: [id number] Reason for Consult: CC: Abx management History [...] HE. He was born and raised in [facility] . No travel to [facility]. 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 [...] Strain: Low Risk (07/09/2024) Received from [facility] Overall Financial Resource Strain (CARDIA) Difficulty [...] No Physical Activity: Unknown (07/14/2024) Received from [facility] Exercise Vital Sign Days of Exercise per Week: Patient unable to answer Minutes of Exercise per Session: Not on file Stress: Patient Unable To Answer (07/14/2024) Received from [facility] [place] [employer] - Occupational Stress Questionnaire Feeling of Stress : Patient unable to answer Social Connections: Patient Unable To Answer (07/14/2024) Received from [facility] Social Connection and Isolation Panel [NHANES] Frequency of Communication with Friends and Family: Patient unable to answer Frequency of Social Gatherings with Friends and Family: Patient unable to answer Attends Spiritism Services: Patient unable to answer Active Member [...] day. Qty: 60 tablet, Refills: 0 Comments: [facility] in [place] 82 sodium bicarbonate 650 MG tablet Take [...] [R47.01] 10/06/2024 SBP (spontaneous bacterial peritonitis) [place] [K65.2] 09/08/2024 Metabolic acidosis with normal anion gap and bicarbonate losses [E87.20] 09/03/2024 CKD (chronic kidney disease) stage 4, GFR 15-29 ml/min ([facility] [N18.4] 09/03/2024 GERD (gastroesophageal reflux disease) [K21.9] [...] Signed: Daria Garcia MD 10/08/2024, 9:46 AM [phone] [1] Allergies Allergen Reactions Adhesive Itching and [...] Strain: Low Risk (07/09/2024) Received from [facility] Overall Financial Resource Strain (CARDIA) Difficulty [...] No Physical Activity: Unknown (07/14/2024) Received from [facility] Exercise Vital Sign Days of Exercise per Week: Patient unable to answer Minutes of Exercise per Session: Not on file Stress: Patient Unable To Answer (07/14/2024) Received from [email or web address] [place] [employer] - Occupational Stress Questionnaire Feeling of Stress : Patient unable to answer Social Connections: Patient Unable To Answer (07/14/2024) Received from [facility] Social Connection and Isolation Panel [NHANES] Frequency of Communication with Friends and Family: Patient unable to answer Frequency of Social Gatherings with Friends and Family: Patient unable to answer Attends Spiritism Services: Patient unable to answer Active Member [...] is no recent study available for direct [id number] comparison. Left Ventricle The left ventricle is [...] pressures < 35 mmHgon resting echo from [facility] 07/15/24. No ischemic workup noted. ECG [...] surgery with risk (OLT/OKT) Los Broussard MD, [facility] Department of Anesthesiology [1] Allergies Allergen Reactions Adhesive Itching and Rash Tegaderm adhesive on Ivs, pt states its tolerable Duloxetine Other (See Comments) Became Manic [2] Patient Active Problem List Diagnosis Decompensated cirrhosis ([facility]) NADIYA (acute kidney injury) ([facility] Alcohol use disorder Metabolic encephalopathy Hypertension Other hyperlipidemia Thrombocytopenia ([facility] Renal mass, left Abdominal pain Hypokalemia CKD (chronic kidney disease) stage 4, GFR 15-29 ml/min ([facility] Metabolic acidosis with normal anion gap and bicarbonate losses GERD (gastroesophageal reflux disease) Hypothyroidism Itching Anemia BRBPR (bright red blood per rectum) SBP (spontaneous bacterial peritonitis) ([facility] C Diff Diarrhea C. difficile diarrhea Aphasia [...] MD PCP: Enedina Mcguire NP Home Pharmacy: [facility] [address] [place] [id number] [facility] [address] [facility] [id number] Issues related to obtaining medications: Payor Information Medical Insurance Coverage: Payor: [employer] / Plan: UHC GLOBAL / Product Type: *No Producttype* / Secondary Payor: Functional Assessment Functional Assessment Assessment Information Obtained From:: Patient Current Mental Status: Awake, Oriented to Person, Oriented to Place, Oriented to Time, Oriented to Situation Mental Health History: Yes Behavioral Health Agency Involvement: Yes Behavioral Health Agency Name: Other (Comment) (states he used [facility] for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 Teletray Operator [address] [place], [place] [address] CATHETERIZATION LAB STUDY Patient: Julien Gilbert Age: [...] manner. 3. Right radial artery access. A [id number] Glidesheath - Slender - .021sheath was advanced [...] complications. Contrast: Omnipaque 350 25ml (total dose). [id number] 125ml (wasted). Radiation: Fluoroscopy time: 15min. Total [...] + + + !LV pressure s/d, ed !112/1, 22, dP/ii=5219dr Hg/s! + + + !Aortic pressure s/d (m)!106/58 (75) ! + + + ATTESTATION: Dr. Matta was present for the entire procedure. Dr. Jay Quan wasthe initial author of this report. Prepared and electronically signed by Irving Matta MD [id number] [place] [id number] Final Result Performing Organization Address [facility] de Phone Number [facility] * Transfuse Fresh Frozen Plasma Transfusion Rate: Per dept routine (10/14/2024 2:08 PM EDT) us Eleazar Nguyễn MD NURSING TREATMENT ORDER PAL - BLOOD ADMIN Final Result Performing Organization Address [facility] de Phone Number EXTERNAL * Transfuse Fresh Frozen Plasma Transfusion Rate: Per dept routine, 1 Units (10/14/2024 2:08 PM EDT) Eleazar Nguyễn MD NURSING TREATMENT ORDER PAL - BLOOD ADMIN Final Result Performing Organization Address [facility] de Phone Number EXTERNAL * Transfuse Platelets Transfusion Rate: Per dept routine (10/14/2024 12:43 PM EDT) us Eleazar Nguyễn MD NURSING TREATMENT ORDER PAL - BLOOD ADMIN Final Result Performing Organization Address [facility] de Phone Number EXTERNAL * Transfuse Platelets Transfusion Rate: Per dept routine, 1 Units (10/14/2024 12:43 PM EDT) Eleazar Nguyễn MD NURSING TREATMENT ORDER PAL - BLOOD ADMIN Final Result [facility] * Antibody Screen (10/14/2024 8:21 AM EDT) Antibody Screen Negative 10/14/2024 9:11 AM EDT [facility] Blood 10/14/2024 8:21 AM EDT 10/14/2024 8:33 AM EDT Narrative [facility] - 10/14/2024 9:26 AM EDT Testing performed by [facility] Transfusion Service us Eleazar Nguyễn MD BLOOD BANK TEST ORDERAB LES Final Result Performing Organization Address City/[facility]/ZIP Co de Phone Number [facility] [address] * ABO/Rh (10/14/2024 8:21 AM EDT) ABO Grouping O 10/14/2024 8:55 AM EDT [facility] Rh Type Positive 10/14/2024 8:55 AM EDT [facility] Blood 10/14/2024 8:21 AM EDT 10/14/2024 8:33 AM EDT us Eleazar Nguyễn MD BLOOD BANK TEST ORDERAB LES Final Result Performing Organization Address City/[facility] Co de Phone Number [facility] [address] * (ABNORMAL) Protime-INR (10/14/2024 2:53 AM EDT) Protime 23.8(H) 12.1 - 15.1 seconds 10/14/2024 4:34 AM EDT [facility] INR 2.1(H) 0.9 - 1.1 10/14/2024 4:34 AM EDT [facility] Comment: RECOMMENDED THERAPEUTIC RANGES USING INR : Stable oral anticoagulant therapy: 2.0 - 3.0 Mechanical prosthetic heart valve: 2.5 - 3.5 Recurrent acute myocardial infarction: 2.5 - 3.5 Plasma 10/14/2024 2:53 AM EDT 10/14/2024 4:16 AM EDT us Eileen Schroeder MD, PhD LAB BLOOD ORDERABLES Final Result Performing Organization Address [facility] Co de Phone Number [facility] [address] * (ABNORMAL) Hepatic Function Panel (10/14/2024 2:53 AM EDT) Total Bilirubin 7.2(H) 0.0 - 1.5 mg/dL 10/14/2024 4:45 AM EDT [facility] Bilirubin, Direct 3.86(H) 0.00 - 0.40 mg/dL 10/14/2024 4:45 AM EDT [facility] AST 41(H) 13 - 39 U/L 10/14/2024 4:45 AM EDT [facility] ALT 22 7 - 52 U/L 10/14/2024 4:45 AM EDT [facility] Alkaline Phosphatase 119 36 - 125 U/L 10/14/2024 4:45 AM EDT [facility] Total Protein 4.6(L) 6.4 - 8.9 g/dL 10/14/2024 4:45 AM EDT [facility] Albumin 3.3(L) 3.5 - 5.7 g/dL 10/14/2024 4:45 AM EDT [facility] Bilirubin, Indirect 3.34(H) 0.00 - 1.10 mg/dL 10/14/2024 4:45 AM EDT [facility] Plasma 10/14/2024 2:53 AM EDT 10/14/2024 4:16 AM EDT us Eileen Schroeder MD, PhD LAB BLOOD ORDERABLES Final Result Performing Organization Address [facility] Co de Phone Number [facility] [address] * Magnesium (10/14/2024 2:53 AM EDT) Magnesium 1.9 1.5 - 2.5 mg/dL 10/14/2024 4:45 AM EDT [facility] Plasma 10/14/2024 2:53 AM EDT 10/14/2024 4:16 AM EDT us Eileen Schroeder MD, PhD LAB BLOOD ORDERABLES Final Result [facility] [address] [place], [place] [address] * (ABNORMAL) Renal Function Panel w/EGFR (10/14/2024 2:53 AM EDT) Sodium 136 133 - 146 mmol/L 10/14/2024 4:45 AM EDT [facility] Potassium 3.5 3.5 - 5.3 mmol/L 10/14/2024 4:45 AM EDT [facility] Chloride 107 98 - 110 mmol/L 10/14/2024 4:45 AM EDT [facility] CO2 16(L) 21 - 33 mmol/L 10/14/2024 4:45 AM EDT [facility] Anion Gap 13 3 - 16 mmol/L 10/14/2024 4:45 AM EDT [facility] BUN 55(H) 7 - 25 mg/dL 10/14/2024 4:45 AM EDT [facility] Creatinine 3.01(H) 0.60 - 1.30 mg/dL 10/14/2024 4:45 AM EDT [facility] Glucose 95 70 - 100 mg/dL 10/14/2024 4:45 AM EDT [facility] Calcium 8.5(L) 8.6 - 10.3 mg/dL 10/14/2024 4:45 AM EDT [facility] Phosphorus 4.4 2.1 - 4.7 mg/dL 10/14/2024 4:45 AM EDT [facility] Albumin 3.3(L) 3.5 - 5.7 g/dL 10/14/2024 4:45 AM EDT [facility] Osmolality, Calculated 297 278 - 305 mOsm/kg 10/14/2024 4:45 AM EDT [facility] EGFR 26 10/14/2024 4:45 AM EDT [facility] Comment:As of [...] MD, PhD LAB BLOOD ORDERABLES Final Result [facility] [address] [place] [address], [facility] * (ABNORMAL) CBC (10/14/2024 2:53 AM EDT) WBC 5.5 3.8 - 10.8 10E3/uL 10/14/2024 5:00 AM EDT [facility] RBC 2.09(L) 4.20 - 5.80 10E6/uL 10/14/2024 5:00 AM EDT [facility] Hemoglobin 7.6(L) 13.2 - 17.1 g/dL 10/14/2024 5:00 AM EDT [facility] Hematocrit 21.3(L) 38.5 - 50.0 % 10/14/2024 5:00 AM EDT [facility] MCV 101.7(H) 80.0 - 100.0 fL 10/14/2024 5:00 AM EDT [facility] MCH 36.3(H) 27.0 - 33.0 pg 10/14/2024 5:00 AM EDT [facility] MCHC 35.7 32.0 - 36.0 g/dL 10/14/2024 5:00 AM EDT [facility] RDW 17.6(H) 11.0 - 15.0 % 10/14/2024 5:00 AM EDT [facility] Platelets 35(L) 140 - 400 10E3/uL 10/14/2024 5:00 AM EDT [facility] Comment: Specimen checked for clots. None detected. Slide Reviewed for PLT Clumps. None Seen. MPV 8.5 7.5 - 11.5 fL 10/14/2024 5:00 AM EDT [facility] Whole Blood 10/14/2024 2:53 AM EDT 10/14/2024 4:17 AM EDT us Eileen Schroeder MD, PhD LAB BLOOD ORDERABLES Final Result Performing Organization Address City/State/[facility] Co de Phone Number [facility] [address] * Cardiac Cath Documents Scan (10/14/2024 [...] mL of GADOBUTROL 1 MMOL/ML INTRAVENOUS SYRINGE ([facility]) administered intravenously COMPARISON: CT 09/03/2024. [...] mL of GADOBUTROL 1 MMOL/ML INTRAVENOUS SYRINGE ([facility])administered intravenously COMPARISON: CT 09/03/2024. Ultrasound [...] MD, PhD LAB BLOOD ORDERABLES Final Result [facility] [address] * (ABNORMAL) Hepatic Function Panel (10/13/2024 5:35 AM EDT) Pathologist [facility] Total Bilirubin 6.5(H) 0.0 - 1.5 mg/dL 10/13/2024 6:30 AM EDT [facility] Bilirubin, Direct 3.53(H) 0.00 - 0.40 mg/dL 10/13/2024 6:30 AM EDT [facility] AST 42(H) 13 - 39 U/L 10/13/2024 6:30 AM EDT [facility] ALT 19 7 - 52 U/L 10/13/2024 6:30 AM EDT [facility] Alkaline Phosphatase 108 36 - 125 U/L 10/13/2024 6:30 AM EDT [facility] Total Protein 4.4(L) 6.4 - 8.9 g/dL 10/13/2024 6:30 AM EDT [facility] Albumin 3.1(L) 3.5 - 5.7 g/dL 10/13/2024 6:30 AM EDT [facility] Bilirubin, Indirect 2.97(H) 0.00 - 1.10 mg/dL 10/13/2024 6:30 AM EDT [facility] Plasma 10/13/2024 5:3 5 AM EDT 10/13/2024 5:52 AM EDT us Eileen Schroeder MD, PhD LAB BLOOD ORDERABLES Final Result [facility] [address] * Magnesium (10/13/2024 5:35 AM EDT) Magnesium 2.0 1.5 - 2.5 mg/dL 10/13/2024 6:30 AM EDT [facility] Plasma 10/13/2024 5:35 AM EDT 10/13/2024 5:52 AM EDT us Eileen Schroeder MD, PhD LAB BLOOD ORDERABLES Final Result Performing Organization Address [facility] Co de Phone Number [facility] [address] [facility]. [address] * (ABNORMAL) Renal Function Panel w/EGFR (10/13/2024 5:35 AM EDT) Sodium 134 133 - 146 mmol/L 10/13/2024 6:30 AM EDT [facility] Potassium 3.7 3.5 - 5.3 mmol/L 10/13/2024 6:30 AM EDT [facility] Chloride 109 98 - 110 mmol/L 10/13/2024 6:30 AM EDT [facility] CO2 14(L) 21 - 33 mmol/L 10/13/2024 6:30 AM EDT [facility] Anion Gap 11 3 - 16 mmol/L 10/13/2024 6:30 AM EDT [facility] BUN 54(H) 7 - 25 mg/dL 10/13/2024 6:30 AM EDT [facility] Creatinine 2.99(H) 0.60 - 1.30 mg/dL 10/13/2024 6:30 AM EDT [facility] Glucose 116(H) 70 - 100 mg/dL 10/13/2024 6:30 AM EDT [facility] Calcium 8.3(L) 8.6 - 10.3 mg/dL 10/13/2024 6:30 AM EDT [facility] Phosphorus 4.5 2.1 - 4.7 mg/dL 10/13/2024 6:30 AM EDT [facility] Albumin 3.1(L) 3.5 - 5.7 g/dL 10/13/2024 6:30 AM EDT [facility] Osmolality, Calculated 294 278 - 305 mOsm/kg 10/13/2024 6:30 AM EDT [facility] EGFR 26 10/13/2024 6:30 AM EDT [facility] Comment:As of 2021, the estimated [...] MD, PhD LAB BLOOD ORDERABLES Final Result [facility] [address] [address] * (ABNORMAL) CBC (10/13/2024 5:35 AM EDT) WBC 4.7 3.8 - 10.8 10E3/uL 10/13/2024 6:22 AM EDT [facility] RBC 2.06(L) 4.20 - 5.80 10E6/uL 10/13/2024 6:22 AM EDT [facility] Hemoglobin 7.4(L) 13.2 - 17.1 g/dL 10/13/2024 6:22 AM EDT [facility] Hematocrit 21.7(L) 38.5 - 50.0 % 10/13/2024 6:22 AM EDT [facility] MCV 105.4(H) 80.0 - 100.0 fL 10/13/2024 6:22 AM EDT [facility] MCH 35.9(H) 27.0 - 33.0 pg 10/13/2024 6:22 AM EDT [facility] MCHC 34.0 32.0 - 36.0 g/dL 10/13/2024 6:22 AM EDT [facility] RDW 18.5(H) 11.0 - 15.0 % 10/13/2024 6:22 AM EDT [facility] Platelets 35(L) 140 - 400 10E3/uL 10/13/2024 6:22 AM EDT [facility] Comment: CNV Specimen checked for clots. None detected. MPV 8.4 7.5 - 11.5 fL 10/13/2024 6:22 AM EDT [facility] Whole Blood 10/13/2024 5:35 AM EDT 10/13/2024 5:53 AM EDT us Eileen Schroeder MD, PhD LAB BLOOD ORDERABLES Final Result Performing Organization Address City/State/[facility] Co de Phone Number [facility] [address] * (ABNORMAL) Ammonia (10/13/2024 5:35 AM EDT) Ammonia 203(HH) 27 - 90 ug/dL 10/13/2024 7:16 AM EDT [facility] Comment: HEMOLYSIS EVIDENT. RESULTS MAY BE INFLUENCED. Critical Result [id number] Called to and read back by: KEY MELO RN at: 10/13/2024 07:15:55 by:NISREEN Plasma 10/13/2024 5:35 AM EDT 10/13/2024 6:19 AM EDT us Ellis Mays DO LAB BLOOD ORDERABLES Final Resul t Performing Organization Address [facility]/ZIP Co de Phone Number [facility] [address] [facility]. [address] * CARISA Rhythm Strip - Scan (10/12/2024 10:30 PM EDT) us Scanning [place] SCAN DOCS - NO RESULTS Final Res ult * (ABNORMAL) Protime-INR (10/12/2024 5:44 AM EDT) Protime 25.7(H) 12.1 - 15.1 seconds 10/12/2024 6:12 AM EDT [facility] INR 2.3(H) 0.9 - 1.1 10/12/2024 6:12 AM EDT [facility] Comment: RECOMMENDED THERAPEUTIC RANGES USING INR : Stable oral anticoagulant therapy: 2.0 - 3.0 Mechanical prosthetic heart valve: 2.5 - 3.5 Recurrent acute myocardial infarction: 2.5 - 3.5 Plasma 10/12/2024 5:44 AM EDT 10/12/2024 5:58 AM EDT us Eileen Schroeder MD, PhD LAB BLOOD ORDERABLES Final Result Performing Organization Address [facility] Co de Phone Number [facility] [address] [facility]. [address] * (ABNORMAL) Hepatic Function Panel (10/12/2024 5:44 AM EDT) Total Bilirubin 6.5(H) 0.0 - 1.5 mg/dL 10/12/2024 6:29 AM EDT [facility] Bilirubin, Direct 3.64(H) 0.00 - 0.40 mg/dL 10/12/2024 6:29 AM EDT [facility] AST 40(H) 13 - 39 U/L 10/12/2024 6:29 AM EDT [facility] ALT 19 7 - 52 U/L 10/12/2024 6:29 AM EDT [facility] Alkaline Phosphatase 99 36 - 125 U/L 10/12/2024 6:29 AM EDT [facility] Total Protein 4.2(L) 6.4 - 8.9 g/dL 10/12/2024 6:29 AM EDT [facility] Albumin 3.1(L) 3.5 - 5.7 g/dL 10/12/2024 6:29 AM EDT [facility] Bilirubin, Indirect 2.86(H) 0.00 - 1.10 mg/dL 10/12/2024 6:29 AM EDT [facility] Plasma 10/12/2024 5:44 AM EDT 10/12/2024 5:58 AM EDT Eileen Schroeder MD, PhD LAB BLOOD ORDERABLES Final Result Performing Organization Address [facility]/ZIP Co de Phone Number [facility] [address] [facility]. [address] * Magnesium (10/12/2024 5:44 AM EDT) Magnesium 1.9 1.5 - 2.5 mg/dL 10/12/2024 6:29 AM EDT [facility] Plasma 10/12/2024 5:44 AM EDT 10/12/2024 5:58 AM EDT Eileen Schroeder MD, PhD LAB BLOOD ORDERABLES Final Result Performing Organization Address [facility]/ZIP Co de Phone Number [facility] [address] * (ABNORMAL) Renal Function Panel w/EGFR (10/12/2024 5:44 AM EDT) Sodium 135 133 - 146 mmol/L 10/12/2024 6:29 AM EDT [facility] Potassium 3.7 3.5 - 5.3 mmol/L 10/12/2024 6:29 AM EDT [facility] Chloride 109 98 - 110 mmol/L 10/12/2024 6:29 AM EDT [facility] CO2 17(L) 21 - 33 mmol/L 10/12/2024 6:29 AM EDT [facility] Anion Gap 9 3 - 16 mmol/L 10/12/2024 6:29 AM EDT [facility] BUN 52(H) 7 - 25 mg/dL 10/12/2024 6:29 AM EDT [facility] Creatinine 2.94(H) 0.60 - 1.30 mg/dL 10/12/2024 6:29 AM EDT [facility] Glucose 121(H) 70 - 100 mg/dL 10/12/2024 6:29 AM EDT [facility] Calcium 8.5(L) 8.6 - 10.3 mg/dL 10/12/2024 6:29 AM EDT [facility] Phosphorus 4.6 2.1 - 4.7 mg/dL 10/12/2024 6:29 AM EDT [facility] Albumin 3.1(L) 3.5 - 5.7 g/dL 10/12/2024 6:29 AM EDT [facility] Osmolality, Calculated 295 278 - 305 mOsm/kg 10/12/2024 6:29 AM EDT [facility] EGFR 27 10/12/2024 6:29 AM EDT [facility] Comment:As of 2021, the estimated [...] MD, PhD LAB BLOOD ORDERABLES Final Result [facility] [address] [place] [address] * (ABNORMAL) CBC (10/12/2024 5:44 AM EDT) WBC 3.3(L) 3.8 - 10.8 10E3/uL 10/12/2024 7:06 AM EDT [facility] RBC 1.95(L) 4.20 - 5.80 10E6/uL 10/12/2024 7:06 AM EDT [facility] Hemoglobin 7.2(L) 13.2 - 17.1 g/dL 10/12/2024 7:06 AM EDT [facility] Hematocrit 19.7(L) 38.5 - 50.0 % 10/12/2024 7:06 AM EDT [facility] MCV 101.2(H) 80.0 - 100.0 fL 10/12/2024 7:06 AM EDT [facility] MCH 37.0(H) 27.0 - 33.0 pg 10/12/2024 7:06 AM EDT [facility] MCHC 36.5(H) 32.0 - 36.0 g/dL 10/12/2024 7:06 AM EDT [facility] RDW 17.6(H) 11.0 - 15.0 % 10/12/2024 7:06 AM EDT [facility] Platelets 30(L) 140 - 400 10E3/uL 10/12/2024 7:06 AM EDT [facility] Comment: Specimen checked for clots. None detected. Slide Reviewed for PLT Clumps. None Seen. Platelet Estimate Decreased 10/12/2024 7:06 AM EDT [facility] MPV 8.3 7.5 - 11.5 fL 10/12/2024 7:06 AM EDT [facility] Whole Blood 10/12/2024 5:44 AM EDT 10/12/2024 5:58 AM EDT Narrative [facility] - 10/12/2024 7:06 AM EDT Peripheral blood smear was scanned per review criteria approved by the laboratory medical staff coordinator. us Eileen Schroeder MD, PhD LAB BLOOD ORDERABLES Final Result [facility] [address] * CARISA Rhythm Strip - Scan (10/11/2024 10:04 PM EDT) us Scanning Uchhim SCAN DOCS - NO RESULTS Final Res ult * (ABNORMAL) Protime-INR (10/11/2024 3:02 AM EDT) Protime 26.8(H) 12.1 - 15.1 seconds 10/11/2024 3:30 AM EDT [facility] INR 2.4(H) 0.9 - 1.1 10/11/2024 3:30 AM EDT [facility] Comment: RECOMMENDED THERAPEUTIC RANGES USING INR : Stable oral anticoagulant therapy: 2.0 - 3.0 Mechanical prosthetic heart valve: 2.5 - 3.5 Recurrent acute myocardial infarction: 2.5 - 3.5 Plasma 10/11/2024 3:02 AM EDT 10/11/2024 3:08 AM EDT us Eileen Schroeder MD, PhD LAB BLOOD ORDERABLES Final Result [facility] [address] * (ABNORMAL) Hepatic Function Panel (10/11/2024 3:02 AM EDT) Total Bilirubin 7.3(H) 0.0 - 1.5 mg/dL 10/11/2024 3:38 AM EDT [facility] Bilirubin, Direct 3.85(H) 0.00 - 0.40 mg/dL 10/11/2024 3:38 AM EDT [facility] AST 39 13 - 39 U/L 10/11/2024 3:38 AM EDT [facility] ALT 20 7 - 52 U/L 10/11/2024 3:38 AM EDT [facility] Alkaline Phosphatase 88 36 - 125 U/L 10/11/2024 3:38 AM EDT [facility] Total Protein 4.5(L) 6.4 - 8.9 g/dL 10/11/2024 3:38 AM EDT [facility] Albumin 3.3(L) 3.5 - 5.7 g/dL 10/11/2024 3:38 AM EDT [facility] Bilirubin, Indirect 3.45(H) 0.00 - 1.10 mg/dL 10/11/2024 3:38 AM EDT [facility] Plasma 10/11/2024 3:02 AM EDT 10/11/2024 3:08 AM EDT Eileen Schroeder MD, PhD LAB BLOOD ORDERABLES Final Result Performing Organization Address City/[facility]/ZIP Co de Phone Number [facility] [address] [facility]. [address] * Magnesium (10/11/2024 3:02 AM EDT) Magnesium 2.0 1.5 - 2.5 mg/dL 10/11/2024 3:38 AM EDT [facility] Plasma 10/11/2024 3:02 AM EDT 10/11/2024 3:08 AM EDT Eileen Schroeder MD, PhD LAB BLOOD ORDERABLES Final Result Performing Organization Address [facility] Co de Phone Number [facility] [address] * (ABNORMAL) Renal Function Panel w/EGFR (10/11/2024 3:02 AM EDT) Sodium 134 133 - 146 mmol/L 10/11/2024 3:38 AM EDT [facility] Potassium 3.6 3.5 - 5.3 mmol/L 10/11/2024 3:38 AM EDT [facility] Chloride 108 98 - 110 mmol/L 10/11/2024 3:38 AM EDT [facility] CO2 16(L) 21 - 33 mmol/L 10/11/2024 3:38 AM EDT [facility] Anion Gap 10 3 - 16 mmol/L 10/11/2024 3:38 AM EDT [facility] BUN 49(H) 7 - 25 mg/dL 10/11/2024 3:38 AM EDT [facility] Creatinine 2.77(H) 0.60 - 1.30 mg/dL 10/11/2024 3:38 AM EDT [facility] Glucose 112(H) 70 - 100 mg/dL 10/11/2024 3:38 AM EDT [facility] Calcium 8.9 8.6 - 10.3 mg/dL 10/11/2024 3:38 AM EDT [facility] Phosphorus 3.5 2.1 - 4.7 mg/dL 10/11/2024 3:38 AM EDT [facility] Albumin 3.3(L) 3.5 - 5.7 g/dL 10/11/2024 3:38 AM EDT [facility] Osmolality, Calculated 292 278 - 305 mOsm/kg 10/11/2024 3:38 AM EDT [facility] EGFR 29 10/11/2024 3:38 AM EDT [facility] Comment:As of 2021, the estimated [...] MD, PhD LAB BLOOD ORDERABLES Final Result [facility] [address] * (ABNORMAL) CBC (10/11/2024 3:02 AM EDT) WBC 4.0 3.8 - 10.8 10E3/uL 10/11/2024 3:55 AM EDT [facility] RBC 2.11(L) 4.20 - 5.80 10E6/uL 10/11/2024 3:55 AM EDT [facility] Hemoglobin 7.7(L) 13.2 - 17.1 g/dL 10/11/2024 3:55 AM EDT [facility] Hematocrit 21.2(L) 38.5 - 50.0 % 10/11/2024 3:55 AM EDT [facility] MCV 100.5(H) 80.0 - 100.0 fL 10/11/2024 3:55 AM EDT [facility] MCH 36.4(H) 27.0 - 33.0 pg 10/11/2024 3:55 AM EDT [facility] MCHC 36.2(H) 32.0 - 36.0 g/dL 10/11/2024 3:55 AM EDT [facility] RDW 17.9(H) 11.0 - 15.0 % 10/11/2024 3:55 AM EDT [facility] Platelets 32(L) 140 - 400 10E3/uL 10/11/2024 3:55 AM EDT [facility] Comment: Specimen checked for clots. None detected. Slide Reviewed for PLT Clumps. None Seen. Platelet Estimate Decreased 10/11/2024 3:55 AM EDT [facility] MPV 8.1 7.5 - 11.5 fL 10/11/2024 3:55 AM EDT [facility] Whole Blood 10/11/2024 3:02 AM EDT 10/11/2024 3:08 AM EDT Narrative [facility] - 10/11/2024 3:55 AM EDT Peripheral blood smear was scanned per review criteria approved by the laboratory medical staff coordinator. us Eileen Schroeder MD, PhD LAB BLOOD ORDERABLES Final Result [facility] [address] [place] [address], [place] * Vancomycin, random (10/11/2024 3:02 AM EDT) Vancomycin Random 13.4 ug/mL 10/11/2024 3:37 AM EDT [facility] Comment:Reference range not established for this test. Plasma 10/11/2024 3:02 AM EDT 10/11/2024 3:08 AM EDT us Jodi Ortiz PharmD LAB BLOOD ORDERABLES Final Result [facility] [address] [place] [address], [facility] * IR Paracentesis incl imaging guide [...] diagnostic and therapeutic paracentesis. Bakari Wahl CNP, Assistant Corporate Controller Procedure and Findings: The procedure was performed [...] for diagnostic andtherapeutic paracentesis. Bakari Wahl CNP, Assistant Corporate Controller Procedure and Findings: The procedure was performed [...] Fluid 13 % 10/10/2024 5:29 PM EDT [facility] Mesothelial %, Fluid 6 % 10/10/2024 5:29 PM EDT [facility] Macrophage %, Fluid 72 % 10/10/2024 5:29 PM EDT [facility] RBC, Fluid 2,662 /uL 10/10/2024 4:41 PM EDT [facility] Total Nucleated Cells, Fluid 89 /uL 10/10/2024 4:41 PM EDT [facility] Comment:Total Nucleated Cell s represent WBCs and other nucleated cells in the fluid such as lining cells. Ascitic Fluid ABDOMEN / Unknown 1:51 PM EDT 10/10/2024 3:56 PM EDT us Gerri Peterson MD BODY FLUIDS AND STOOLS ORDERABL ES Final Result [facility] [address] [facility] [place] [address], [facility] * Body Fluid Culture plus Stain (10/10/2024 1:51 PM EDT) Gram Stain Result Cytospin Results: [facility] Gram Stain Result Polymorphonuclear Leukocytes Seen; [facility] Gram Stain Result No Organisms Seen; [facility] Culture Result No Growth After 5 Days [facility] Fluid ABDOMEN / Unknown 10/10/2024 1:51 PM EDT 10/10/2024 3:56 PM EDT Gerri Peterson MD MICROBIOLOGY - GENERAL ORDERABL ES Final Result Performing Organization Address City/State/[facility] Co de Phone Number [facility] [address] * UPPER GI ENDOSCOPY (10/10/2024 11:48 AM EDT) 10/10/2024 11:4 8 AM EDT Narrative [facility] - 10/10/2024 12:34 PM EDT [id number] Procedure Date: 10/10/2024 11:48 AM Patient Name: Julien Gilbert Date of : 1985 Admit Type: Inpatient Age: 39 Gender: Male Note Status: Finalized Attending MD: Lino Soto MD, [id number] Procedure: Upper GI endoscopy Indications: Gastroesopahgeal variceal [...] verified by the physician, the nurse, the shoulder joiner and the recreation technician in the pre-procedure area in the [...] to hypotension Procedure Code(s): --- Professional --- 33611, GC, Esophagogastroduodenoscopy, flexible, transoral; diagnostic, including collection of specimen(s) by brushing or washing, when performed (separate procedure) Diagnosis Code(s): --- Professional --- I85.00, Esophageal 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 All rights reserved. The codes documented in this report are preliminary and upon door attendant review may be revised to meet current [...] In: 12:10:16 PM Scope Out: 12:17:[address] [place] [address], [id number] us Provider Not In System PROCEDURE/MINOR SURGICAL ORDERABLES Final Result [facility] * (ABNORMAL) Protime-INR (10/10/2024 5:23 AM EDT) Protime 23.9(H) 12.1 - 15.1 seconds 10/10/2024 6:11 AM EDT [facility] INR 2.1(H) 0.9 - 1.1 10/10/2024 6:11 AM EDT [facility] Comment: RECOMMENDED THERAPEUTIC RANGES USING INR : Stable oral anticoagulant therapy: 2.0 - 3.0 Mechanical prosthetic heart valve: 2.5 - 3.5 Recurrent acute myocardial infarction: 2.5 - 3.5 Plasma 10/10/2024 5:23 AM EDT 10/10/2024 5:50 AM EDT Eileen Schroeder MD, PhD LAB BLOOD ORDERABLES Final Result Performing Organization Address [facility] Co de Phone Number [facility] [address] [facility]. [address] * (ABNORMAL) Hepatic Function Panel (10/10/2024 5:23 AM EDT) Total Bilirubin 8.6(H) 0.0 - 1.5 mg/dL 10/10/2024 6:21 AM EDT [facility] Bilirubin, Direct 4.65(H) 0.00 - 0.40 mg/dL 10/10/2024 6:21 AM EDT [facility] AST 40(H) 13 - 39 U/L 10/10/2024 6:21 AM EDT [facility] ALT 22 7 - 52 U/L 10/10/2024 6:21 AM EDT [facility] Alkaline Phosphatase 118 36 - 125 U/L 10/10/2024 6:21 AM EDT [facility] Total Protein 4.6(L) 6.4 - 8.9 g/dL 10/10/2024 6:21 AM EDT [facility] Albumin 3.3(L) 3.5 - 5.7 g/dL 10/10/2024 6:21 AM EDT [facility] Bilirubin, Indirect 3.95(H) 0.00 - 1.10 mg/dL 10/10/2024 6:21 AM EDT [facility] Plasma 10/10/2024 5:23 AM EDT 10/10/2024 5:50 AM EDT Eileen Schroeder MD, PhD LAB BLOOD ORDERABLES Final Result Performing Organization Address [facility]/ZIP Co de Phone Number [facility] [address] * Magnesium (10/10/2024 5:23 AM EDT) Magnesium 1.9 1.5 - 2.5 mg/dL 10/10/2024 6:21 AM EDT [facility] Plasma 10/10/2024 5:23 AM EDT 10/10/2024 5:50 AM EDT Eileen Schroeder MD, PhD LAB BLOOD ORDERABLES Final Result [facility] [address] [place] [address], [facility] * (ABNORMAL) Renal Function Panel w/EGFR (10/10/2024 5:23 AM EDT) Sodium 135 133 - 146 mmol/L 10/10/2024 6:21 AM EDT [facility] Potassium 3.6 3.5 - 5.3 mmol/L 10/10/2024 6:21 AM EDT [facility] Chloride 108 98 - 110 mmol/L 10/10/2024 6:21 AM EDT [facility] CO2 17(L) 21 - 33 mmol/L 10/10/2024 6:21 AM EDT [facility] Anion Gap 10 3 - 16 mmol/L 10/10/2024 6:21 AM EDT [facility] BUN 53(H) 7 - 25 mg/dL 10/10/2024 6:21 AM EDT [facility] Creatinine 2.85(H) 0.60 - 1.30 mg/dL 10/10/2024 6:21 AM EDT [facility] Glucose 113(H) 70 - 100 mg/dL 10/10/2024 6:21 AM EDT [facility] Calcium 9.0 8.6 - 10.3 mg/dL 10/10/2024 6:21 AM EDT [facility] Phosphorus 3.3 2.1 - 4.7 mg/dL 10/10/2024 6:21 AM EDT [facility] Albumin 3.3(L) 3.5 - 5.7 g/dL 10/10/2024 6:21 AM EDT [facility] Osmolality, Calculated 295 278 - 305 mOsm/kg 10/10/2024 6:21 AM EDT [facility] EGFR 28 10/10/2024 6:21 AM EDT [facility] Comment:As of 2021, the estimated [...] M, Olivia DC, Emerita ND, Madelyn [place], Feliica [place], et al. A Unifying Approach for GFR Estimation: Recommendations of the NKF-ASN Task Force on Reassessing the inclusion of Race in Diagnosing Kidney Disease. Am J Kidney Dis. 2020. Plasma 10/10/2024 5:23 AM EDT 10/10/2024 5:50 AM EDT us Eileen Schroeder MD, PhD LAB BLOOD ORDERABLES Final Result [facility] [address] [place] [address], [facility] * (ABNORMAL) CBC (10/10/2024 5:23 AM EDT) WBC 5.1 3.8 - 10.8 10E3/uL 10/10/2024 6:14 AM EDT [facility] RBC 2.04(L) 4.20 - 5.80 10E6/uL 10/10/2024 6:14 AM EDT [facility] Hemoglobin 7.3(L) 13.2 - 17.1 g/dL 10/10/2024 6:14 AM EDT [facility] Hematocrit 20.6(L) 38.5 - 50.0 % 10/10/2024 6:14 AM EDT [facility] MCV 101.2(H) 80.0 - 100.0 fL 10/10/2024 6:14 AM EDT [facility] MCH 36.0(H) 27.0 - 33.0 pg 10/10/2024 6:14 AM EDT [facility] MCHC 35.5 32.0 - 36.0 g/dL 10/10/2024 6:14 AM EDT [facility] RDW 17.6(H) 11.0 - 15.0 % 10/10/2024 6:14 AM EDT [facility] Platelets 39(L) 140 - 400 10E3/uL 10/10/2024 6:14 AM EDT [facility] Comment: CNV Specimen checked for clots. None detected. MPV 9.8 7.5 - 11.5 fL 10/10/2024 6:14 AM EDT [facility] Whole Blood 10/10/2024 5:23 AM EDT 10/10/2024 5:51 AM EDT us Eileen Schroeder MD, PhD LAB BLOOD ORDERABLES Final Result Performing Organization Address City/[facility]/ZIP Co de Phone Number [facility] [address] [place] [address] * Vancomycin, random (10/10/2024 5:23 AM EDT) Vancomycin Random 16.4 ug/mL 10/10/2024 6:22 AM EDT [facility] Comment:Reference range not established for this test. Plasma 10/10/2024 5:23 AM EDT 10/10/2024 5:51 AM EDT us Jodi FreireD LAB BLOOD ORDERABLES Final Result Performing Organization Address [facility]/ZIP Co de Phone Number [address] * ECHO STRESS W/ CONTRAST (10/09/2024 4:37 PM EDT) Anatomical Region Laterality Modality Chest Ultrasound 10/09/2024 2:40 PM EDT Narrative 10/09/2024 6:45 PM EDT * [facility]* [address] [place], [place] [id number] Stress Echocardiogram Patient: Julien Gilbert Room: 8142 Height: 76in MR Number: [id number] : 1985 Weight: 262lb Account: [id number] Gender: M BP: 125 / 77 Study Date: 10/09/2024 Age: 39 BSA: 2.48m^2 Referring physician: Gerri Peterson Interpreting physician: Tonya Henriquez MD FELLOW Lisa Jha MD PERFORMING Tonya Henriquez MD 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 The infusion was terminated [...] at baseline or with provocation, shows no uhlmj-td-pgsq atrial level shunt. - Pulmonary arteries: Systolic [...] at baseline or with provocation, shows no qdslt-bg-jdeo atrial level shunt. Pulmonary artery: - Systolic [...] at baseline or with provocation, shows no nftcf-oc-nnbl atrial level shunt. Pericardium: - There is [...] peak heart rate and blood pressure was 33450em Hg/min. 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 Procedure: [facility]. Intravenous [...] was augmented by the addition of hand dredge captain and leg lifts. The infusion was terminated [...] at baseline or with provocation, shows no shqzh-ia-sjtk atrial level shunt. - Pulmonary arteries: Systolic [...] study at baseline or with provocation, showsno qgjhu-ai-dwoq atrial level shunt. Pulmonary artery: - Systolic [...] at baseline or with provocation, shows no bqrrj-vf-hybi atrial level shunt. Pericardium: - There is [...] heart rate). The maximal predicted heart rate [id number]. The target heart rate was 152bpm. The target heart rate was achieved.The heart rate response to stress is normal. There is a normal resting blood pressure with an appropriate response to stress. The rate-pressureproduct for the peak heart rate and blood pressure was 41891pg Hg/min. Stress testing did not produce any [...] Reviewed and confirmed by Tonya Henriquez MD [id number]:20 us Gerri Peterson MD CV ECHO ORDERABLES Final Result * (ABNORMAL) Renal Function Panel w/EGFR, STAT (10/09/2024 1:05 PM EDT) Sodium 134 133 - 146 mmol/L 10/09/2024 2:10 PM EDT [facility] Potassium 3.7 3.5 - 5.3 mmol/L 10/09/2024 2:10 PM EDT [facility] Chloride 105 98 - 110 mmol/L 10/09/2024 2:10 PM EDT [facility] CO2 17(L) 21 - 33 mmol/L 10/09/2024 2:10 PM EDT [facility] Anion Gap 12 3 - 16 mmol/L 10/09/2024 2:10 PM EDT [facility] BUN 53(H) 7 - 25 mg/dL 10/09/2024 2:10 PM EDT [facility] Creatinine 2.89(H) 0.60 - 1.30 mg/dL 10/09/2024 2:10 PM EDT [facility] Glucose 108(H) 70 - 100 mg/dL 10/09/2024 2:10 PM EDT [facility] Calcium 9.3 8.6 - 10.3 mg/dL 10/09/2024 2:10 PM EDT [facility] Phosphorus 3.4 2.1 - 4.7 mg/dL 10/09/2024 2:10 PM EDT [facility] Albumin 3.6 3.5 - 5.7 g/dL 10/09/2024 2:10 PM EDT [facility] Osmolality, Calculated 293 278 - 305 mOsm/kg 10/09/2024 2:10 PM EDT [facility] EGFR 27 10/09/2024 2:10 PM EDT [facility] Comment:As of 2021, the estimated [...] MD, PhD LAB BLOOD ORDERABLES Final Result [facility] [address] [facility] [place] [address], [facility] * (ABNORMAL) Renal Function Panel w/EGFR, STAT (10/09/2024 8:14 AM EDT) Sodium 134 133 - 146 mmol/L 10/09/2024 8:47 AM EDT [facility] Potassium 3.4(L) 3.5 - 5.3 mmol/L 10/09/2024 8:47 AM EDT [facility] Chloride 107 98 - 110 mmol/L 10/09/2024 8:47 AM EDT [facility] CO2 17(L) 21 - 33 mmol/L 10/09/2024 8:47 AM EDT [facility] Anion Gap 10 3 - 16 mmol/L 10/09/2024 8:47 AM EDT [facility] BUN 54(H) 7 - 25 mg/dL 10/09/2024 8:47 AM EDT [facility] Creatinine 3.04(H) 0.60 - 1.30 mg/dL 10/09/2024 8:47 AM EDT [facility] Glucose 124(H) 70 - 100 mg/dL 10/09/2024 8:47 AM EDT [facility] Calcium 9.0 8.6 - 10.3 mg/dL 10/09/2024 8:47 AM EDT [facility] Phosphorus 3.5 2.1 - 4.7 mg/dL 10/09/2024 8:47 AM EDT [facility] Albumin 3.4(L) 3.5 - 5.7 g/dL 10/09/2024 8:47 AM EDT [facility] Osmolality, Calculated 294 278 - 305 mOsm/kg 10/09/2024 8:47 AM EDT [facility] EGFR 26 10/09/2024 8:47 AM EDT [facility] Comment:As of 2021, the estimated [...] Final Resu lt Performing Organization Address City/[facility]/ZIP Co de Phone Number [facility] [address] * Prepare RBC, leukoreduced, 1 Units (10/09/2024 6:16 AM EDT) Product Code [id number] HCLL Unit Number [id number] [facility]LL Dispense Status Presumed Transfused_PT [facility] Blood Expiration Date [id number] [facility]LL Coding System [id number] [facility] Product us Eileen Schroeder MD, PhD BLOOD BANK PRODUCT OR DERABLES Final Result [facility] * (ABNORMAL) Protime-INR (10/09/2024 4:59 AM [...] BLOOD ORDERABLES Final Result Performing Organization Address City/State/[facility] Co de Phone Number [facility] [address] * (ABNORMAL) Hepatic Function Panel (10/09/2024 4:59 AM EDT) Total Bilirubin 9.0(H) 0.0 - 1.5 mg/dL 10/09/2024 6:42 AM EDT [facility] Bilirubin, Direct 4.60(H) 0.00 - 0.40 mg/dL 10/09/2024 6:42 AM EDT [facility] AST 38 13 - 39 U/L 10/09/2024 6:42 AM EDT [facility] ALT 18 7 - 52 U/L 10/09/2024 6:42 AM EDT [facility] Alkaline Phosphatase 122 36 - 125 U/L 10/09/2024 6:42 AM EDT [facility] Total Protein 4.8(L) 6.4 - 8.9 g/dL 10/09/2024 6:42 AM EDT [facility] Albumin 3.4(L) 3.5 - 5.7 g/dL 10/09/2024 6:42 AM EDT [facility] Bilirubin, Indirect 4.40(H) 0.00 - 1.10 mg/dL 10/09/2024 6:42 AM EDT [facility] Plasma 10/09/2024 4:59 AM EDT 10/09/2024 5:57 AM EDT Eileen Schroeder MD, PhD LAB BLOOD ORDERABLES Final Result Performing Organization Address [facility]/ZIP Co de Phone Number [facility] [address] * Magnesium (10/09/2024 4:59 AM EDT) Magnesium 1.8 1.5 - 2.5 mg/dL 10/09/2024 6:42 AM EDT [facility] Plasma 10/09/2024 4:59 AM EDT 10/09/2024 5:57 AM EDT Eileen Schroeder MD, PhD LAB BLOOD ORDERABLES Final Result Performing Organization Address [facility] de Phone Number [facility] [address] * (ABNORMAL) Renal Function Panel w/EGFR (10/09/2024 4:59 AM EDT) Sodium 134 133 - 146 mmol/L 10/09/2024 6:42 AM EDT [facility] Potassium 3.3(L) 3.5 - 5.3 mmol/L 10/09/2024 6:42 AM EDT [facility] Chloride 107 98 - 110 mmol/L 10/09/2024 6:42 AM EDT [facility] CO2 16(L) 21 - 33 mmol/L 10/09/2024 6:42 AM EDT [facility] Anion Gap 11 3 - 16 mmol/L 10/09/2024 6:42 AM EDT [facility] BUN 56(H) 7 - 25 mg/dL 10/09/2024 6:42 AM EDT [facility] Creatinine 2.98(H) 0.60 - 1.30 mg/dL 10/09/2024 6:42 AM EDT [facility] Glucose 112(H) 70 - 100 mg/dL 10/09/2024 6:42 AM EDT [facility] Calcium 9.0 8.6 - 10.3 mg/dL 10/09/2024 6:42 AM EDT [facility] Phosphorus 3.5 2.1 - 4.7 mg/dL 10/09/2024 6:42 AM EDT [facility] Albumin 3.4(L) 3.5 - 5.7 g/dL 10/09/2024 6:42 AM EDT [facility] Osmolality, Calculated 294 278 - 305 mOsm/kg 10/09/2024 6:42 AM EDT [facility] EGFR 26 10/09/2024 6:42 AM EDT [facility] Comment:As of 2021, the estimated [...] MD, PhD LAB BLOOD ORDERABLES Final Result [facility] [address] [place] [address], [facility] * (ABNORMAL) CBC (10/09/2024 4:59 AM EDT) WBC 4.6 3.8 - 10.8 10E3/uL 10/09/2024 6:21 AM EDT [facility] RBC 2.17(L) 4.20 - 5.80 10E6/uL 10/09/2024 6:21 AM EDT [facility] Hemoglobin 8.0(L) 13.2 - 17.1 g/dL 10/09/2024 6:21 AM EDT [facility] Hematocrit 21.8(L) 38.5 - 50.0 % 10/09/2024 6:21 AM EDT [facility] MCV 100.5(H) 80.0 - 100.0 fL 10/09/2024 6:21 AM EDT [facility] MCH 36.7(H) 27.0 - 33.0 pg 10/09/2024 6:21 AM EDT [facility] MCHC 36.5(H) 32.0 - 36.0 g/dL 10/09/2024 6:21 AM EDT [facility] RDW 18.1(H) 11.0 - 15.0 % 10/09/2024 6:21 AM EDT [facility] Platelets 36(L) 140 - 400 10E3/uL 10/09/2024 6:21 AM EDT [facility] Comment:Specimen checked for clots. None detected. MPV 8.3 7.5 - 11.5 fL 10/09/2024 6:21 AM EDT [facility] Whole Blood 10/09/2024 4:59 AM EDT 10/09/2024 5:56 AM EDT us Eileen Schroeder MD, PhD LAB BLOOD ORDERABLES Final Result [facility] [address] [id number], [facility] * Renal Tx Recipient (10/09/2024 4:59 AM EDT) Renal Transplant Recipient The request and specimen(s) for this test have been received and transported to the [facility] at [address] [place] [address]. The [facility] will report results directly to the client. 10/09/2024 7:26 AM EDT [facility] Blood 10/09/2024 4:59 AM EDT 10/09/2024 7:26 AM EDT us Aaron Gonzalez MD LAB BLOOD ORDERABLES Final Resu lt [facility] [address] [facility]. [address] * Vancomycin, random (10/09/2024 4:59 AM EDT) Vancomycin Random 11.0 ug/mL 10/09/2024 6:33 AM EDT [facility] Comment:Reference range not established for this test. Plasma 10/09/2024 4:59 AM EDT 10/09/2024 5:56 AM EDT us Jodi Ortiz PharmD LAB BLOOD ORDERABLES Final Result [facility] [address] [facility]. [address] * (ABNORMAL) CBC (10/08/2024 5:52 PM EDT) WBC 5.6 3.8 - 10.8 10E3/uL 10/08/2024 6:52 PM EDT [facility] RBC 2.38(L) 4.20 - 5.80 10E6/uL 10/08/2024 6:52 PM EDT [facility] Hemoglobin 8.3(L) 13.2 - 17.1 g/dL 10/08/2024 6:52 PM EDT [facility] Hematocrit 24.6(L) 38.5 - 50.0 % 10/08/2024 6:52 PM EDT [facility] MCV 103.2(H) 80.0 - 100.0 fL 10/08/2024 6:52 PM EDT [facility] MCH 34.7(H) 27.0 - 33.0 pg 10/08/2024 6:52 PM EDT [facility] MCHC 33.6 32.0 - 36.0 g/dL 10/08/2024 6:52 PM EDT [facility] RDW 18.5(H) 11.0 - 15.0 % 10/08/2024 6:52 PM EDT [facility] Platelets 39(L) 140 - 400 10E3/uL 10/08/2024 6:52 PM EDT [facility] Comment:CNV MPV 8.1 7.5 - 11.5 fL 10/08/2024 6:52 PM EDT [facility] Whole Blood 10/08/2024 5:52 PM EDT 10/08/2024 6:45 PM EDT us Eileen Schroeder MD, PhD LAB BLOOD ORDERABLES Final Result Performing Organization Address City/[facility] Co de Phone Number [facility] [address] * Transfuse RBC Has consent been obtained? Yes; Transfusion Rate: Per dept routine (10/08/2024 1:17 PM EDT) us Eileen Schroeder MD, PhD NURSING TREATMENT ORD ERABLES - BLOOD ADMIN Final Result Performing Organization Address City/[facility] Co de Phone Number EXTERNAL * Transfuse RBC Has consent been obtained? Yes; Transfusion Rate: Per dept routine, 1 Units (10/08/2024 1:17 PM EDT) Eileen Schroeder MD, PhD NURSING TREATMENT ORD ERABLES - BLOOD ADMIN Final Result Performing Organization Address City/[facility] Co de Phone Number EXTERNAL * (ABNORMAL) MMR(IgG) Panel (Measles, Mumps, Rubella) (10/08/2024 10:25 AM EDT) Mumps IgG Positive 10/08/2024 11:39 AM EDT [facility] MUMPS IGG NUM 99.00(H) 0.0 - 8.9 U/mL 10/08/2024 11:39 AM EDT [facility] Rubella IgG Scr Positive 10/08/2024 11:40 AM EDT [facility] RUB NUM 4.15(H) 0.00 - 0.89 INDEX 10/08/2024 11:40 AM EDT [facility] Rubeola Ab, IgG Positive 10/08/2024 11:39 AM EDT [facility] RUB IGG NUM 273.00(H) 0.00 - 13.40 U/mL 10/08/2024 11:39 AM EDT [facility] Serum 10/08/2024 10:2 5 AM EDT 10/08/2024 10:49 AM EDT Narrative [facility] - 10/08/2024 11:40 AM EDT [...] MD LAB BLOOD ORDERABLES Final Resu lt [facility] [address] [facility]. [address] * (ABNORMAL) Hemoglobin A1C (10/08/2024 10:25 AM EDT) Hemoglobin A1C 3.7(L) 4.0 - 5.6 % 10/09/2024 1:22 PM EDT [facility] Comment: Hemoglobin A1c Interpretation Guidelines: [...] ORDERABLES Final Resu lt Performing Organization Address [facility]/ZIP Co de Phone Number [facility] [address] [facility]. [address] * (ABNORMAL) Vitamin D 25 Hydroxy (10/08/2024 10:25 AM EDT) Vit D, 25-Hydroxy 7.1(L) 30.0 - 100.0 ng/mL 10/08/2024 11:36 AM EDT [facility] Comment: Vitamin D deficiency has been defined by the [place] [employer] (IOM) and an Endocrine Society [...] ORDERABLES Final Resu lt Performing Organization Address [facility] de Phone Number [facility] [address] [facility]. [address] * Iron Studies (Iron + TIBC) [...] ORDERABLES Final Resu lt Performing Organization Address [facility] Co de Phone Number [facility] [address] [facility]. [address] * (ABNORMAL) Ferritin (10/08/2024 10:25 AM EDT) Ferritin 706.9(H) 23.9 - 336.2 ng/mL 10/08/2024 11:35 AM EDT [facility] Serum 10/08/2024 10:2 5 AM EDT 10/08/2024 10:49 AM EDT Gerri Peterson MD LAB BLOOD ORDERABLES Final Resu lt [facility] [address] * QuantiFERON TB2 Ag (10/08/2024 10:25 AM EDT) QuantiFERON TB2 Ag Value 0.07 10/10/2024 10:41 AM EDT [facility] Plasma 10/08/2024 10:2 5 AM EDT 10/08/2024 11:05 AM EDT Gerri Peterson MD LAB BLOOD ORDERABLES Final Resu lt Performing Organization Address City/[facility]/ZIP Co de Phone Number [facility] [address] * QuantiFERON TB1 Ag (10/08/2024 10:25 AM EDT) QuantiFERON TB1 Ag Value 0.06 10/10/2024 10:41 AM EDT [facility] Plasma 10/08/2024 10:2 5 AM EDT 10/08/2024 11:05 AM EDT Gerri Peterson MD LAB BLOOD ORDERABLES Final Resu lt [facility] [address] * QuantiFERON Nil (10/08/2024 10:25 AM EDT) QuantiFERON Nil 0.06 10:41 AM EDT [facility] Plasma 10/08/2024 10:2 5 AM EDT 10/08/2024 11:05 AM EDT Gerri Peterson MD LAB BLOOD ORDERABLES Final Resu lt Performing Organization Address City/[facility]/ZIP Co de Phone Number [facility] [address] * QuantiFERON Mitogen (10/08/2024 10:25 AM EDT) QuantiFERON Interpretation Negative Negative 10/10/2024 10:41 AM EDT [facility] Comment:Negative result geovanny cates M. tuberculosis infection is NOT likely. Negative results do not preclude tuberculosis infection (especially in immunosuppressed patients). Negative results have a TB antigen minus Nil value less than 0.35 IU/mL. In cases with high suspicion of disease, retesting or additional testing with medical evaluation may be useful. QuantiFERON Mitogen 4.87 10/10 10:41 AM EDT [facility] Plasma 10/08/2024 10:2 5 AM EDT 10/08/2024 11:05 AM EDT Narrative [facility] - 10/10/2024 10:41 AM EDT [...] MD LAB BLOOD ORDERABLES Final Resu lt [facility] [address] * Reticulocyte Count, Auto (10/08/2024 7:41 AM EDT) Retic Ct Pct 1.35 0.50 - 2.00 % 10/08/2024 9:12 AM EDT [facility] Retic Ct Abs 26,190 25,000 - 90,000 /uL 10/08/2024 9:14 AM EDT [facility] Immature Retic Fract 0.37 0.09 - 0.56 10/08/2024 9:12 AM EDT [facility] Whole Blood 10/08/2024 7:41 AM EDT 10/08/2024 8:51 AM EDT us Angie Blanchard MD LAB BLOOD ORDERABLES Final Res ult Performing Organization Address City/[facility]/ZIP Co de Phone Number [facility] [address] [facility]. [address] * (ABNORMAL) Haptoglobin (10/08/2024 7:41 AM EDT) Haptoglobin <30(L) 44 - 215 mg/dL 10/08/2024 8:53 AM EDT [facility] Serum 10/08/2024 7:41 AM EDT 10/08/2024 7:51 AM EDT us Eileen Schroeder MD, PhD LAB BLOOD ORDERABLES Final Result [facility] [address] * (ABNORMAL) CBC - Post Transfusion (10/08/2024 7:41 AM EDT) WBC 3.7(L) 3.8 - 10.8 10E3/uL 10/08/2024 8:34 AM EDT [facility] RBC 1.94(L) 4.20 - 5.80 10E6/uL 10/08/2024 8:34 AM EDT [facility] Hemoglobin 7.1(L) 13.2 - 17.1 g/dL 10/08/2024 8:34 AM EDT [facility] Hematocrit 20.0(L) 38.5 - 50.0 % 10/08/2024 8:34 AM EDT [facility] MCV 103.1(H) 80.0 - 100.0 fL 10/08/2024 8:34 AM EDT [facility] MCH 36.5(H) 27.0 - 33.0 pg 10/08/2024 8:34 AM EDT [facility] MCHC 35.4 32.0 - 36.0 g/dL 10/08/2024 8:34 AM EDT [facility] RDW 17.2(H) 11.0 - 15.0 % 10/08/2024 8:34 AM EDT [facility] Platelets 37(L) 140 - 400 10E3/uL 10/08/2024 8:34 AM EDT [facility] Comment: Specimen checked for clots. None detected. Slide Reviewed for PLT Clumps. None Seen. _Platelet Morphology Normal _Platelets Appear Decreased MPV 8.7 7.5 - 11.5 fL 10/08/2024 8:34 AM EDT [facility] Whole Blood 10/08/2024 7:41 AM EDT 10/08/2024 7:52 AM EDT [facility] - 10/08/2024 8:34 AM EDT Post-transfusion Eileen Schroeder MD, PhD LAB BLOOD ORDERABLES Final Result Performing Organization Address City/State/[facility] Co de Phone Number [facility] [address] * Antibody Screen (10/08/2024 7:41 AM EDT) [facility] Antibody Screen Negative 10/08/2024 8:26 AM EDT [facility] Blood 10/08/2024 7:41 AM EDT 10/08/2024 7:57 AM EDT [facility] - 10/08/2024 8:32 AM EDT Testing performed by [facility] Transfusion Service Eileen Schroeder MD, PhD BLOOD BANK TEST ORDER PAL Final Result Performing Organization Address [facility]/ZIP Co de Phone Number [facility] [address] * ABO/Rh (10/08/2024 7:41 AM EDT) ABO Grouping O 10/08/2024 8:14 AM EDT [facility] Rh Type Positive 10/08/2024 8:14 AM EDT [facility] Blood 10/08/2024 7:41 AM EDT 10/08/2024 7:57 AM EDT Eileen Schroeder MD, PhD BLOOD BANK TEST ORDER PAL Final Result Performing Organization Address [facility] Co de Phone Number [facility] [address] [facility]. [address] * (ABNORMAL) Lactate dehydrogenase (10/08/2024 5:36 AM EDT) LD 102(L) 110 - 270 U/L 10/08/2024 8:20 AM EDT [facility] Plasma 10/08/2024 5:36 AM EDT 10/08/2024 7:58 AM EDT Angie Blanchard MD LAB BLOOD ORDERABLES Final Res ult Performing Organization Address [facility] Co de Phone Number [facility] [address] [facility]. [address] * (ABNORMAL) Protime-INR (10/08/2024 5:36 AM EDT) Protime 26.9(H) 12.1 - 15.1 seconds 10/08/2024 6:11 AM EDT [facility] INR 2.4(H) 0.9 - 1.1 10/08/2024 6:11 AM EDT [facility] Comment: RECOMMENDED THERAPEUTIC RANGES USING INR : Stable oral anticoagulant therapy: 2.0 - 3.0 Mechanical prosthetic heart valve: 2.5 - 3.5 Recurrent acute myocardial infarction: 2.5 - 3.5 Plasma 10/08/2024 5:36 AM EDT 10/08/2024 5:52 AM EDT us Eileen Schroeder MD, PhD LAB BLOOD ORDERABLES Final Result Performing Organization Address [facility] Co de Phone Number [facility] [address] * (ABNORMAL) Hepatic Function Panel (10/08/2024 5:36 AM EDT) Total Bilirubin 7.7(H) 0.0 - 1.5 mg/dL 10/08/2024 6:25 AM EDT [facility] Bilirubin, Direct 4.28(H) 0.00 - 0.40 mg/dL 10/08/2024 6:25 AM EDT [facility] AST 34 13 - 39 U/L 10/08/2024 6:25 AM EDT [facility] ALT 16 7 - 52 U/L 10/08/2024 6:25 AM EDT [facility] Alkaline Phosphatase 103 36 - 125 U/L 10/08/2024 6:25 AM EDT [facility] Total Protein 4.7(L) 6.4 - 8.9 g/dL 10/08/2024 6:25 AM EDT [facility] Albumin 3.5 3.5 - 5.7 g/dL 10/08/2024 6:25 AM EDT [facility] Bilirubin, Indirect 3.42(H) 0.00 - 1.10 mg/dL 10/08/2024 6:25 AM EDT [facility] Plasma 10/08/2024 5:36 AM EDT 10/08/2024 5:52 AM EDT us Eileen Schroeder MD, PhD LAB BLOOD ORDERABLES Final Result Performing Organization Address [facility]/ZIP Co de Phone Number [facility] [address] [facility]. [address] * Magnesium (10/08/2024 5:36 AM EDT) Magnesium 1.9 1.5 - 2.5 mg/dL 10/08/2024 6:25 AM EDT [facility] Plasma 10/08/2024 5:36 AM EDT 10/08/2024 5:52 AM EDT us Eileen Schroeder MD, PhD LAB BLOOD ORDERABLES Final Result [facility] [address] [place], [place] [address] * (ABNORMAL) Renal Function Panel w/EGFR (10/08/2024 5:36 AM EDT) Sodium 135 133 - 146 mmol/L 10/08/2024 6:25 AM EDT [facility] Potassium 3.2(L) 3.5 - 5.3 mmol/L 10/08/2024 6:25 AM EDT [facility] Chloride 106 98 - 110 mmol/L 10/08/2024 6:25 AM EDT [facility] CO2 17(L) 21 - 33 mmol/L 10/08/2024 6:25 AM EDT [facility] Anion Gap 12 3 - 16 mmol/L 10/08/2024 6:25 AM EDT [facility] BUN 61(H) 7 - 25 mg/dL 10/08/2024 6:25 AM EDT [facility] Creatinine 3.10(H) 0.60 - 1.30 mg/dL 10/08/2024 6:25 AM EDT [facility] Glucose 106(H) 70 - 100 mg/dL 10/08/2024 6:25 AM EDT [facility] Calcium 9.0 8.6 - 10.3 mg/dL 10/08/2024 6:25 AM EDT [facility] Phosphorus 4.0 2.1 - 4.7 mg/dL 10/08/2024 6:25 AM EDT [facility] Albumin 3.5 3.5 - 5.7 g/dL 10/08/2024 6:25 AM EDT [facility] Osmolality, Calculated 298 278 - 305 mOsm/kg 10/08/2024 6:25 AM EDT [facility] EGFR 25 10/08/2024 6:25 AM EDT [facility] Comment:As of 2021, [...] EDT 10/08/2024 5:52 AM EDT us Eileen Scrhoeder MD, PhD LAB BLOOD ORDERABLES Final Result [facility] [address] * (ABNORMAL) CBC (10/08/2024 5:36 AM EDT) WBC 3.2(L) 3.8 - 10.8 10E3/uL 10/08/2024 6:41 AM EDT [facility] RBC 1.86(L) 4.20 - 5.80 10E6/uL 10/08/2024 6:41 AM EDT [facility] Hemoglobin 6.9(L) 13.2 - 17.1 g/dL 10/08/2024 6:41 AM EDT [facility] Hematocrit 18.9(L) 38.5 - 50.0 % 10/08/2024 6:41 AM EDT [facility] MCV 101.6(H) 80.0 - 100.0 fL 10/08/2024 6:41 AM EDT [facility] MCH 36.9(H) 27.0 - 33.0 pg 10/08/2024 6:41 AM EDT [facility] MCHC 36.3(H) 32.0 - 36.0 g/dL 10/08/2024 6:41 AM EDT [facility] RDW 17.0(H) 11.0 - 15.0 % 10/08/2024 6:41 AM EDT [facility] Platelets 34(L) 140 - 400 10E3/uL 10/08/2024 6:41 AM EDT [facility] Comment: Specimen checked for clots. None detected. Slide Reviewed for PLT Clumps. None Seen. Platelet Estimate Decreased 10/08/2024 6:41 AM EDT [facility] MPV 8.4 7.5 - 11.5 fL 10/08/2024 6:41 AM EDT [facility] Whole Blood 10/08/2024 5:36 AM EDT 10/08/2024 5:53 AM EDT Narrative [facility] - 10/08/2024 6:41 AM EDT Peripheral blood smear was scanned per review criteria approved by the laboratory medical staff coordinator. us Eileen Schroeder MD, PhD LAB BLOOD ORDERABLES Final Result [facility] [address] * Vancomycin, random (10/08/2024 5:36 AM EDT) Vancomycin Random 16.0 ug/mL 10/08/2024 6:20 AM EDT [facility] Comment:Reference range not established for this test. Plasma 10/08/2024 5:36 AM EDT 10/08/2024 5:52 AM EDT us Jodi FreireD LAB BLOOD ORDERABLES Final Result [facility] [address] [facility]. [address] * Urine Drug Confirmation (10/07/2024 10:50 PM EDT) BARBITURATES NOT PRESENT 10/09/2024 1:33 PM EDT [facility] BENZODIAZEPINES PRESENT 1:33 PM EDT [facility] Nordiazepam 3 ng/mL 10/09/2024 1:33 PM EDT [facility] Temazepam 6 ng/mL 10/09/2024 1:33 PM EDT [facility] CANNABINOIDS NOT PRESENT 10/09/2024 1:33 PM EDT [facility] MEDICAL INSTRUCTOR STIMULANTS NOT PRESENT 1:33 PM EDT [facility] OPIOID ANALGESICS PRESENT 025 1:33 PM EDT [facility] Oxycodone 300 ng/mL 10/09/2024 1:33 PM EDT [facility] Oxymorphone 32 ng/mL 10/09/2024 1:33 PM EDT [facility] Tramadol >1000 ng/mL 10/09/2024 1:33 PM EDT [facility] OPIOID ANTAGONISTS NOT PRESENT 10/09 1:33 PM EDT [facility] SEDATIVES/MUSCLE RELAXANTS NOT PRESENT 10/09/2024 1:33 PM EDT [facility] TRICYCLIC ANTIDEPRESSANTS NOT PRESENT 10/09/2024 1:33 PM EDT [facility] Urine 10/07/2024 10:5 0 PM EDT 10/08/2024 3:00 AM EDT Gerri Peterson MD URINE ORDERABLES Final Result [facility] [address] * Giardia Cryptosporidium Antigens (10/07/2024 10:50 PM EDT) Cryptosporidium Ag Negative Negative 2024 7:59 AM EDT [facility] Giardia Ag Negative Negative 10/08/2024 7:59 AM EDT [facility] Comment: Detection of Giardia and Cryptosporidium antigen is more sensitive and specific than microscopy. Because antigens are shed continuously, repeat testing is rarely warranted. Feces 10/07/2024 10:5 0 PM EDT 10/08/2024 1:53 AM EDT Comment:F Bisi Hernandez MICROBIOLOGY - GENERAL ORDERABLE S Final Result [facility] [address] [place] [address], [facility] * (ABNORMAL) Urine Drug Screen Reflex to Confirmation (10/07/2024 10:50 PM EDT) Amphetamine, 500 ng/mL Cutoff Negative Negative 10/08/2024 3:00 AM EDT [facility] Barbiturates UR, 300 ng/mL Cutoff Negative Negative 10/08/2024 3:00 AM EDT [facility] Buprenorphine, 5 ng/mL Cutoff Negative Negative 10/08/2024 3:00 AM EDT [facility] Benzodiazepines UR, 300 ng/mL Cutoff Negative Negative 10/08/2024 3:00 AM EDT [facility] Cocaine UR, 300 ng/mL Cutoff Negative Negative 10/08/2024 3:00 AM EDT [facility] Methadone, UR, 300 ng/mL Cutoff Negative Negative 10/08/2024 3:00 AM EDT [facility] Opiates UR, 300 ng/mL Cutoff Negative Negative 10/08/2024 3:00 AM EDT [facility] Oxycodone, 100 ng/mL Cutoff Presumptive Positive(A) Negative 10/08/2024 3:00 AM EDT [facility] Tricyclic Antidepressants, 300 ng/mL Cutoff Negative Negative 10/08/2024 3:00 AM EDT [facility] Comment:This test has been d eveloped and its performance characteristics determined by [facility] which is certified under [...] Cutoff Negative Negative 10/08/2024 3:00 AM EDT [facility] Comment:This is a screening method only and may be associated with false positive and/or false negative results. Results are not definitive without additional confirmatory testing by mass spectrometry. Fentanyl, 2 ng/mL Cutoff Negative Negative 10/08/2024 3:00 AM EDT [facility] Comment:This test has been d eveloped and its performance characteristics determined by [facility] which is certified under [...] Gerri Peterson MD URINE ORDERABLES Final Result [facility] [address] [facility] [place] [address], [facility] * Comprehensive Drug Screen (10/07/2024 10:50 PM EDT) Creatinine, Ur CANCELED mg/dL 10/08/2024 7:09 AM EDT [facility] Comment:The released value 8 7.30 was canceled by YAQUELIN on 10/08/2024 07:09 BARBITURATES CANCELED [facility] Butalbital CANCELED [facility] Phenobarbital [facility] Secobarbital [facility] BENZODIAZEPINES CANCELED [facility] Alprazolam CANCELED [facility] Clonazepam [facility]ELED [facility] Diazepam [facility]ELED [facility] Alpha-Hydroxyalprazo mcknight [facility]ED [facility] Lorazepam [facility] Midazolam [facility] Nordiazepam CANCELED [facility] Oxazepam [facility]ED [facility] Temazepam [facility]ELED [facility] CANNABINOIDS CANCELED [facility] THC-COOH CANCELED [facility] MEDICAL INSTRUCTOR STIMULANTS CANCELED [facility] AL[facility] LAB Cocaine Metabolite(benzoylec gonine) CANCELED [facility] Amphetamine [facility] Methamphetamine [facility] MDA CANCELED [facility] MDEA [facility]ELED [facility] Phencyclindine (PCP) [facility]ELED [facility] OPIOID ANALGESICS [facility] Heroin Metabolite(6-RAMONA) CANCELED [facility] Codeine [facility] Morphine [facility] Hydrocodone [facility]ELED [facility] LAB Hydromorphone [facility]ED [facility] LAB Oxycodone [facility] Oxymorphone [facility] Meperidine [facility] Normeperidine [facility] Methadone [facility] Methadone Metabolite (EDDP) [facility]CELED [facility] Tramadol [facility] Fentanyl [facility] Norfentanyl [facility] Sufentanil [facility] OPIOID ANTAGONISTS CANCELED [facility] Buprenorphine [facility] Norbuprenorphine [facility] Naltrexone [facility] Naloxone [facility]ED [facility] SEDATIVES/MUSCLE RELAXANTS [facility]ELED [facility] Carisoprodol CANCELED [facility] Meprobamate [facility] TRICYCLIC ANTIDEPRESSANTS [facility]ED [facility] Amitriptyline [facility]ED [facility] LAB Clomipramine [facility]ED [facility] Desipramine [facility] Doxepin [facility] Imipramine [facility] Nortriptyline CANCELED [facility] Urine Creatinine CANCELED mg/dL [facility] Nitrite [facility]ELED [facility] Glutaraldehyde [facility]ELED [facility] pH CANCELED 10/08/2024 7:09 AM EDT [facility] Comment:The released value 5 .6 was canceled by YAQUELIN on 10/08/2024 07:09 Specific [place] CANCELED 10/09/19 7:09 AM EDT [facility] Comment:The released value 1 .009 was canceled by YAQUELIN on 10/08/2024 07:09 Bleach CANCELED [facility] Pyridinium Chlorochromate CANCELED [facility] Urine 10/07/2024 10:5 0 PM EDT 10/08/2024 2:07 AM EDT Narrative [facility] - 10/08/2024 7:09 AM EDT See accn [id number] Gerri Peterson MD URINE ORDERABLES Edited Result - Final Performing Organization Address [facility]/ZIP Co de Phone Number [facility] [id number] [facility]. [address] * Ova and Parasite Comprehensive w/ Giardia/Crypto (10/07/2024 10:50 PM EDT) Pathologist [facility] O & P Method: Concentration and Trichrome Stain [facility] Results No Amoeba, Ova, Or Parasites Seen. -- O and P examination of additional specimens is recommended only for symptomatic patients, immunosuppressed patients or those with an appropriate travel history. [facility] Feces FECES / Unknown 10/07/2024 1 0:50 PM EDT 10/08/2024 1:53 AM EDT Comment:F Bisi Hernandez DO MICROBIOLOGY - GENERAL ORDERABLE S Final Result Performing Organization Address [facility] Co de Phone Number [facility] [id number] [facility]. [address] * Enteric Pathogen Panel (10/07/2024 10:50 PM EDT) Pathologist [facility] Campylobacter Group (C. ecoli, C. jejuni, C. trino) Not Detected Not Detected 10/08/2024 4:40 AM EDT [facility] Salmonella species Not Detected Not Detected 10/08/2024 4:40 AM EDT [facility] Shigella species Not Detected Not Detected 10/08/2024 4:40 AM EDT [facility] Vibrio Group (Vibrio cholerae, Vibrio parahaemolyticus) Not Detected Not Detected 10/08/2024 4:40 AM EDT [facility] Yersinia enterocolitica Not Detected Not Detected 10/08/2024 4:40 AM EDT [facility] Shiga toxin 1 Not Detected Not Detected 10/08/2024 4:40 AM EDT [facility] [facility] Shiga toxin 2 Not Detected Not Detected 10/08/2024 4:40 AM EDT [facility] Norovirus Not Detected Not Detected 10/08/2024 4:40 AM EDT [facility] Rotavirus Not Detected Not Detected 10/08/2024 4:40 AM EDT [facility] Comment: The Enteric Pathogen Panel [...] Final Result Performing Organization Address [facility] Co de Phone Number [facility] [address] [facility]. [address] * Hepatitis C Antibody (10/07/2024 6:38 PM EDT) HCV Ab Nonreactive Nonreactive 10/07/2024 7:56 PM EDT [facility] Comment:Health Department no tified in accordance with reportable infectious disease guidelines. Serum 10/07/2024 6:38 PM EDT 10/07/2024 6:52 PM EDT Narrative [facility] - 10/07/2024 7:56 PM EDT Antibodies to HCV not detected; does not exclude the possibility of exposure to HCV. Gerri Peterson MD LAB BLOOD ORDERABLES Final Resu lt Performing Organization Address [facility]/ZIP Co de Phone Number [facility] [address] * Hepatitis B Surface Antibody, Quantitati (10/07/2024 6:38 PM EDT) Hep B S Ab Nonreactive Nonreactive 10/07/2024 8:00 PM EDT [facility] HBSAB NUMBER 7.88 0.00 - 7.99 mIU/mL 10/07/2024 8:00 PM EDT [facility] Serum 10/07/2024 6:38 PM EDT 10/07/2024 6:52 PM EDT [facility] - 10/07/2024 8:00 PM EDT Individual is considered not immune to HBV infection. Result [facility] Gerri Peterson MD LAB BLOOD ORDERABLES Final Resu lt Performing Organization Address [facility] Co de Phone Number [facility] [address] [facility]. [address] * Hepatitis B surface antigen (10/07/2024 6:38 PM EDT) Hep B Surface Ag Nonreactive Nonreactive 10/07/2024 7:51 PM EDT [facility] Comment:Health Department no tified in accordance with reportable infectious disease guidelines. Serum 10/07/2024 6:38 PM EDT 10/07/2024 6:52 PM EDT [facility] - 10/07/2024 7:51 PM EDT Specimen is considered negative for HBsAg. Result [facility] Gerri Peterson MD LAB BLOOD ORDERABLES Final Resu lt Performing Organization Address [facility] Co de Phone Number [facility] [address] [place] [address]. [address] * Hepatitis A Antibody Total (10/07/2024 6:38 PM EDT) Anti-HAV Total (IgG + IgM) Nonreactive 10/07/2024 7:53 PM EDT [facility] Serum 10/07/2024 6:38 PM EDT 10/07/2024 6:52 PM EDT [facility] - 10/07/2024 7:53 PM EDT HAV antibodies not detected Gerri Peterson MD LAB BLOOD ORDERABLES Final Resu lt Performing Organization Address [facility]/ZIP Co de Phone Number [facility] [address] [facility]. [address] * Hepatitis A IgM (10/07/2024 6:38 PM EDT) Hep A IgM Nonreactive Nonreactive 10/07/2024 7:46 PM EDT [facility] Serum 10/07/2024 6:38 PM EDT 10/07/2024 6:52 PM EDT Narrative [facility] - 10/07/2024 7:46 PM EDT IgM anti-HAV not detected. Does not exclude the possibility of exposure to or infection with HAV. Levels of IgM anti-HAV may be below the cut-off in early infection. us Gerri Peterson MD LAB BLOOD ORDERABLES Final Resu lt [facility] [address] [facility] [place] [address], [facility] * (ABNORMAL) Lipid Profile (10/07/2024 6:37 PM EDT) Non-HDL Cholesterol, Calculated See Note 0 - 129 mg/dL 10/07/2024 7:42 PM EDT [facility] Comment: Desirable: < 130 mg/dL Above Desirable: 130-159 mg/dL Borderline High: 160-189 mg/dL High: 190-219 mg/dL Very High: > 219 mg/dL Unable to calculate result either because contributing result(s) are outside of reportable range or are not available. Cholesterol, Total <25 0 - 200 mg/dL 10/07/2024 7:42 PM EDT [facility] Triglycerides 30 10 - 149 mg/dL 10/07/2024 7:42 PM EDT [facility] HDL 4(L) 60 - 92 mg/dL 10/07/2024 7:42 PM EDT [facility] Comment: LIPID PROFILE INTERPRETATION CHOLESTEROL,TOTAL(mg/dL) [...] Cholesterol See Note mg/dL 7:42 PM EDT [facility] Comment:Unable to calculate result either because contributing result(s) are outside of reportable range or are not available. Plasma 10/07/2024 6:37 PM EDT 10/07/2024 7:06 PM EDT Narrative [facility] - 10/07/2024 7:42 PM EDT LDL cholesterol calculated using the Friedewald equation. us Gerri Peterson MD LAB BLOOD ORDERABLES Final Resu lt [facility] [address] * (ABNORMAL) Alpha 1 Antitrypsin AAT Quant & Mutation (10/07/2024 6:37 PM EDT) A-1 Antitrypsin 99(L) 101 - 187 mg/dL 10/09/2024 4:28 AM EDT [facility] A-1 Antitrypsin Pheno Comment 10/10/2024 4:05 PM EDT [facility] Comment: A1A Phenotype is consistent with a heterozygous phenotype consisting of one M (normal) allele and one allele that cannot be identified at this time. The unknown allele is not consistent with Z (deficient), S (deficient), or F (deficient). MM Phenotype is considered to be normal , producing normal serum levels of xjyzm-[id number] inhibitor and not associated with clinical disease. [...] PM EDT 10/10/2024 4:08 PM EDT Narrative [facility] - 10/10/2024 4:08 PM EDT PERFORMED AT: [facility] [address] [id number] PROCESS ASSISTANT: Bassam Khalil, PhD PHONE: [phone] PERFORMED AT: [facility] [address] [id number] PROCESS ASSISTANT: Mandy Abdul MD PHONE: [phone] Gerri Peterson MD LAB BLOOD ORDERABLES Final Resu lt Performing Organization Address City/[facility]/ZIP Co de Phone Number [facility] [address] [facility]. [address] * (ABNORMAL) CMV IgG Antibody (10/07/2024 6:37 PM EDT) CMV IgG Positive(A ) Negative 10/07/2024 8:26 PM EDT [facility] CMV IGG NUM 8.40(H) 0.00 - 0.59 U/mL 10/07/2024 8:26 PM EDT [facility] Serum 10/07/2024 6:37 PM EDT 10/07/2024 6:50 PM EDT Greri Peterson MD LAB BLOOD ORDERABLES Final Resu lt [facility] [address] * HIV-1 and HIV-2 Antibodies w Reflex (10/07/2024 6:37 PM EDT) HIV 1+2 AB/AGN Nonreactive Nonreactive 10/07/2024 7:54 PM EDT [facility] Serum 10/07/2024 6:37 PM EDT 10/07/2024 7:06 PM EDT Narrative [facility] - 10/07/2024 7:54 PM EDT \HIVRNR Gerri Peterson MD LAB BLOOD ORDERABLES Final Resu lt [facility] [address] [facility]. [address] * TSH (Thyroid Stimulating Hormone) (10/07/2024 6:37 PM EDT) Pathologist [facility] TSH 0.81 0.45 - 4.12 uIU/mL 10/07/2024 8:17 PM EDT [facility] Serum 10/07/2024 6:37 PM EDT 10/07/2024 6:50 PM EDT Gerri Peterson MD LAB BLOOD ORDERABLES Final Resu lt [facility] [address] * Katie-Watkins virus early antigen antibody, IgG (10/07/2024 6:37 PM EDT) Pathologist [facility] EBV Early Antigen Ab, IgG <9.0 0.0 - 8.9 U/mL 10/09/2024 2:16 PM EDT [facility] Comment: Negative < 9.0 Equivocal 9.0 - 10.9 Positive >10.9 Serum Frozen 10/07/2024 6:37 PM EDT 10/09/2024 3:07 PM EDT Narrative [facility] - 10/09/2024 3:07 PM EDT PERFORMED AT: [address] [id number] PROCESS ASSISTANT: Bassam Khalil, PhD PHONE: [phone] Gerri Peterson MD LAB BLOOD ORDERABLES Final Resu lt Performing Organization Address [facility] Co de Phone Number [facility] [address] * (ABNORMAL) Varicella zoster antibody, IgG (10/07/2024 6:37 PM EDT) Varicella IgG Positive( A) Negative S/CO 10/07/2024 8:34 PM EDT [facility] Comment:Result indicates the presence of detectable VZV IgG antibodies. A positive result is generally indicative of exposure to the pathogen or administration of specific immunoglobulins, but it is no indication of active infection or stage of disease. This test is not approved for determining vaccine-induced immunity to varicella zoster virus. VZV NUM 6.76(H) 0.00 - 0.99 S/CO 10/07/2024 8:34 PM EDT [facility] Serum 10/07/2024 6:37 PM EDT 10/07/2024 6:50 PM EDT Result [facility] Gerri Peterson MD LAB BLOOD ORDERABLES Final Resu lt Performing Organization Address [facility] Co de Phone Number [facility] [address] * Toxoplasma gondii antibody, IgG (10/07/2024 6:37 PM EDT) Toxoplasma Gondii IgG <3.0 0.0 - 7.1 IU/mL 10/09/2024 7:53 AM EDT [facility] Comment: Negative <7.2 Equivocal 7.2 - 8.7 Positive >8.7 Serum 10/07/2024 6:37 PM EDT 10/09/2024 8:07 AM EDT Narrative [facility] - 10/09/2024 8:07 AM EDT PERFORMED AT: [address] [id number] PROCESS ASSISTANT: Bassam Khalil, PhD PHONE: [phone] Gerri Peterson MD LAB BLOOD ORDERABLES Final Resu lt Performing Organization Address City/[facility]/ZIP Co de Phone Number [facility] [address] [facility]. [address] * Syphilis Screening (Trepia) (10/07/2024 6:37 PM EDT) Treponema Pallidum Negative Negative 10/07/2024 8:27 PM EDT [facility] Comment: No serological evidence of infection with Treponema pallidum (incubating or early primary syphilis cannot be excluded). Serum 10/07/2024 6:37 PM EDT 10/07/2024 6:50 PM EDT Gerri Peterson MD LAB BLOOD ORDERABLES Final Resu lt Performing Organization Address [facility] Co de Phone Number [facility] [address] [facility]. [address] * Strongyloides Ab (10/07/2024 6:37 PM EDT) Strongyloides Ab Negative Negative 10/11/19 11:51 AM EDT [facility] Serum 10/07/2024 6:37 PM EDT 10/10/2024 12:07 PM EDT Narrative [facility] - 10/10/2024 12:07 PM EDT PERFORMED AT: [address] [id number] PROCESS ASSISTANT: Mandy Abdul MD PHONE: [phone] Gerri Peterson MD LAB BLOOD ORDERABLES Final Resu lt Performing Organization Address City/[facility]/ZIP Co de Phone Number [facility] [address] [facility]. [address] * Phosphatidylethanol Confirmation, B (10/07/2024 6:37 PM EDT) PETH 16:0/18.1 (POPETH) <10 Cutoff: 10 ng/mL 10/10/2024 10:42 AM EDT [facility] Comment: Phosphatidylethanol (PEth) homologues result [...] Cutoff: 10 ng/mL 10/10/2024 10:42 AM EDT [facility] Comment: PEth 16:0/18:2 (PLPEth) Reference ranges are not well established PEth Interpretation Negative. 10/10 10:42 AM EDT [facility] Comment: ADDITIONAL INFORMATION This report is intended for use in clinical monitoring and management of patients. It is not intended for use in employment-related testing. This test was developed and its performance characteristics determined by [facility] in a manner consistent with CLIA requirements. This test has not been cleared or approved by the U.S. Food and Drug Administration. Test Performed by: [facility] [address] It Consultant: Kathy Ortiz Ph.D.; CLIA# [id number] Whole Blood 10/07/2024 6:37 PM EDT 10/10/2024 10:42 AM EDT us Gerri Peterson MD LAB BLOOD ORDERABLES Final Resu lt [facility] [address] [place] [address], [facility] * (ABNORMAL) MMR(IgG) Panel (Measles, Mumps, Rubella) (10/07/2024 6:37 PM EDT) Mumps IgG Positive 10/07/2024 8:26 PM EDT [facility] MUMPS IGG NUM 77.80(H) 0.0 - 8.9 U/mL 10/07/2024 8:26 PM EDT [facility] Rubella IgG Scr Positive 10/07/2024 8:28 PM EDT [facility] RUB NUM 3.04(H) 0.00 - 0.89 INDEX 10/07/2024 8:28 PM EDT [facility] Rubeola Ab, IgG Positive 10/07/2024 8:26 PM EDT [facility] RUB IGG NUM 192.00(H) 0.00 - 13.40 U/mL 10/07/2024 8:26 PM EDT [facility] Serum 10/07/2024 6:37 PM EDT 10/07/2024 6:50 PM EDT Narrative [facility] - 10/07/2024 8:28 PM EDT [...] ORDERABLES Final Resu lt Performing Organization Address [facility] Co de Phone Number [facility] [address] [facility]. [address] * IgA (10/07/2024 6:37 PM EDT) IgA 227.0 70.0 - 400.0 mg/dL 10/08/2024 11:07 AM EDT [facility] Comment:Please interpret the se findings in conjunction with clinical findings, protein electrophoresis, and immunotyping/immunofixation results. Serum 10/07/2024 6:37 PM EDT 10/07/2024 6:50 PM EDT Gerri Peterson MD LAB BLOOD ORDERABLES Final Resu lt Performing Organization Address City/[facility]/ZIP Co de Phone Number [facility] [address] [facility]. [address] * Ethanol, Serum (10/07/2024 6:37 PM EDT) Ethanol <10 0 - 10 mg/dL 10/07/2024 8:36 PM EDT [facility] Serum 10/07/2024 6:37 PM EDT 10/07/2024 6:50 PM EDT Result [facility] Gerri Peterson MD LAB BLOOD ORDERABLES Final Resu lt [facility] [address] [facility]. [address] * ABO/Rh - Second (10/07/2024 6:37 PM EDT) ABO Grouping O 10/07/2024 7:16 PM EDT [facility] Rh Type Positive 10/07/2024 7:16 PM EDT [facility] Blood 10/07/2024 6:37 PM EDT 10/07/2024 6:56 PM EDT Narrative [facility] - 10/07/2024 7:18 PM EDT This is not a duplicate order. It is required that ABO be drawn twice for LIVER TRANSPLANT Gerri Peterson MD BLOOD BANK TEST ORDERABLES Denisse l Result Performing Organization Address City/[facility]/ZIP Co de Phone Number [facility] [address] [facility]. [address] * ABO/Rh- Initial (10/07/2024 6:37 PM EDT) ABO Grouping O 10/07/2024 7:59 PM EDT [facility] Rh Type Positive 10/07/2024 7:59 PM EDT [facility] Blood 10/07/2024 6:37 PM EDT 10/07/2024 7:25 PM EDT Gerri Peterson MD BLOOD BANK TEST ORDERABLES Denisse l Result [facility] [address] [place] [address], [facility] * X-ray Mandible minimum 4-views (10/07/2024 [...] No acute osseous abnormality. Report Verified by: Daina Devlin MD at 10/08/2024 1:12 PM EDT [...] EXAM: US ABDOMEN COMPLETE EXAM: US DUPLEX [id number] COMPLETE INDICATION: elevated bilirubin COMPARISON: Ultrasound and [...] EXAM: US ABDOMEN COMPLETE EXAM: US DUPLEX [id number] COMPLETE INDICATION: elevated bilirubin COMPARISON: Ultrasound and [...] 4:26 PM EDT us Bisi Hernandez DO [facility] US ORDERABLES Final Result * US Duplex Zob-Smm-Mfctokn Comp (10/07/2024 3:48 PM EDT) Anatomical Region [...] EXAM: US ABDOMEN COMPLETE EXAM: US DUPLEX [id number] COMPLETE INDICATION: elevated bilirubin COMPARISON: Ultrasound and [...] EXAM: US ABDOMEN COMPLETE EXAM: US DUPLEX [id number] COMPLETE INDICATION: elevated bilirubin COMPARISON: Ultrasound and [...] MD, PhD LAB BLOOD ORDERABLES Final Result [facility] [address] [id number], [facility] * (ABNORMAL) Hepatic Function Panel (10/07/2024 6:00 AM EDT) Total Bilirubin 9.7(H) 0.0 - 1.5 mg/dL 10/07/2024 7:10 AM EDT [facility] Bilirubin, Direct 5.21(H) 0.00 - 0.40 mg/dL 10/07/2024 7:10 AM EDT [facility] AST 39 13 - 39 U/L 10/07/2024 7:10 AM EDT [facility] ALT 18 7 - 52 U/L 10/07/2024 7:10 AM EDT [facility] Alkaline Phosphatase 98 36 - 125 U/L 10/07/2024 7:10 AM EDT [facility] Total Protein 4.8(L) 6.4 - 8.9 g/dL 10/07/2024 7:10 AM EDT [facility] Albumin 3.6 3.5 - 5.7 g/dL 10/07/2024 7:10 AM EDT [facility] Bilirubin, Indirect 4.49(H) 0.00 - 1.10 mg/dL 10/07/2024 7:10 AM EDT [facility] Plasma 10/07/2024 6:00 AM EDT 10/07/2024 6:39 AM EDT us Eileen Schroeder MD, PhD LAB BLOOD ORDERABLES Final Result Performing Organization Address City/[facility]/ZIP Co de Phone Number [facility] [address] * Magnesium (10/07/2024 6:00 AM EDT) Magnesium 1.7 1.5 - 2.5 mg/dL 10/07/2024 7:10 AM EDT [facility] Plasma 10/07/2024 6:00 AM EDT 10/07/2024 6:39 AM EDT us Eileen Schroeder MD, PhD LAB BLOOD ORDERABLES Final Result Performing Organization Address [facility] Co de Phone Number [facility] [address] * (ABNORMAL) Renal Function Panel w/EGFR (10/07/2024 6:00 AM EDT) Sodium 132(L) 133 - 146 mmol/L 10/07/2024 7:10 AM EDT [facility] Potassium 3.9 3.5 - 5.3 mmol/L 10/07/2024 7:10 AM EDT [facility] Chloride 103 98 - 110 mmol/L 10/07/2024 7:10 AM EDT [facility] CO2 19(L) 21 - 33 mmol/L 10/07/2024 7:10 AM EDT [facility] Anion Gap 10 3 - 16 mmol/L 10/07/2024 7:10 AM EDT [facility] BUN 64(H) 7 - 25 mg/dL 10/07/2024 7:10 AM EDT [facility] Creatinine 3.38(H) 0.60 - 1.30 mg/dL 10/07/2024 7:10 AM EDT [facility] Glucose 111(H) 70 - 100 mg/dL 10/07/2024 7:10 AM EDT [facility] Calcium 9.1 8.6 - 10.3 mg/dL 10/07/2024 7:10 AM EDT [facility] Phosphorus 4.2 2.1 - 4.7 mg/dL 10/07/2024 7:10 AM EDT [facility] Albumin 3.6 3.5 - 5.7 g/dL 10/07/2024 7:10 AM EDT [facility] Osmolality, Calculated 293 278 - 305 mOsm/kg 10/07/2024 7:10 AM EDT [facility] EGFR 22 10/07/2024 7:10 AM EDT [facility] Comment:As of 2021, the estimated [...] MD, PhD LAB BLOOD ORDERABLES Final Result [facility] [address] * (ABNORMAL) CBC (10/07/2024 6:00 AM EDT) WBC 3.3(L) 3.8 - 10.8 10E3/uL 10/07/2024 7:55 AM EDT [facility] RBC 2.06(L) 4.20 - 5.80 10E6/uL 10/07/2024 7:55 AM EDT [facility] Hemoglobin 7.4(L) 13.2 - 17.1 g/dL 10/07/2024 7:55 AM EDT [facility] Hematocrit 21.5(L) 38.5 - 50.0 % 10/07/2024 7:55 AM EDT [facility] MCV 104.1(H) 80.0 - 100.0 fL 10/07/2024 7:55 AM EDT [facility] MCH 35.8(H) 27.0 - 33.0 pg 10/07/2024 7:55 AM EDT [facility] MCHC 34.4 32.0 - 36.0 g/dL 10/07/2024 7:55 AM EDT [facility] RDW 17.5(H) 11.0 - 15.0 % 10/07/2024 7:55 AM EDT [facility] Platelets 35(L) 140 - 400 10E3/uL 10/07/2024 7:55 AM EDT [facility] Comment: Specimen checked for clots. None detected. Slide Reviewed for PLT Clumps. None Seen. _Platelet Morphology Normal _Platelets Appear Decreased Platelet Estimate Decreased 10/07/2024 7:55 AM EDT [facility] MPV 8.0 7.5 - 11.5 fL 10/07/2024 7:55 AM EDT [facility] Whole Blood 10/07/2024 6:00 AM EDT 10/07/2024 6:40 AM EDT [facility] - 10/07/2024 7:55 AM EDT Peripheral blood smear was scanned per review criteria approved by the laboratory medical staff coordinator. us Eileen Schroeder MD, PhD LAB BLOOD ORDERABLES Final Result [facility] [address] [id number] * AFP Tumor Marker (10/07/2024 6:00 AM EDT) AFP-Tumor Marker 2.0 0.0 - 9.0 ng/mL 10/07/2024 7:11 AM EDT [facility] Serum 10/07/2024 6:00 AM EDT 10/07/2024 6:39 AM EDT [facility] - 10/07/2024 7:11 AM EDT The testing method for AFP is a chemiluminescent immunoassay manufactured by [employer] Concentrations of AFP obtained by different assay methods or kits may vary and cannot be used interchangeably. AFP results cannot be interpreted as absolute evidence of the presence or absence of malignant disease. Shila Rivera MD LAB BLOOD ORDERABLES Final Resul t Performing Organization Address [facility] Co de Phone Number [facility] [address] [facility]. [address] * Vancomycin, random (10/07/2024 6:00 AM EDT) Pathologist [facility] Vancomycin Random 21.1 ug/mL 10/07/2024 7:08 AM EDT [facility] Comment:Reference range not established for this test. Plasma 10/07/2024 6:00 AM EDT 10/07/2024 6:39 AM EDT Kiet Gardiner PharmD LAB BLOOD ORDERABLES Final Re sult Performing Organization Address [facility] Co de Phone Number [facility] [address] * Osmolality (10/06/2024 2:50 PM EDT) Pathologist [facility] Osmolality, Measured 304 278 - 305 mOsm/kg 10/06/2024 3:49 PM EDT [facility] Serum 10/06/2024 2:50 PM EDT 10/06/2024 2:56 PM EDT Chari Vanegas MD LAB BLOOD ORDERABLES Final Resul t Performing Organization Address [facility] Co de Phone Number [facility] [address] [facility]. [address] * CT Head WO contrast (10/06/2024 [...] Ur <15 mmol/L 10/06/2024 1:56 PM EDT [facility] Comment:Reference range not established for this test. Urine 10/06/2024 1:25 PM EDT 10/06/2024 1:32 PM EDT us Chari Vanegas MD URINE ORDERABLES Final Result Performing Organization Address [facility] de Phone Number [facility] [address] [facility]. [address] * Potassium, urine, random (10/06/2024 1:25 PM EDT) Potassium Urine Random 50.0 mmol/L 10/06/2024 1:56 PM EDT [facility] Comment:Reference range not established for this test. Urine 10/06/2024 1:25 PM EDT 10/06/2024 1:32 PM EDT us Chari Vanegas MD URINE ORDERABLES Final Result Performing Organization Address [facility] de Phone Number [facility] [address] [facility]. [address] * Sodium, urine, random (10/06/2024 1:25 PM EDT) Sodium, Ur <10 mmol/L 10/06/2024 1:56 PM EDT [facility] Comment:Reference range not established for this test. Urine 10/06/2024 1:25 PM EDT 10/06/2024 1:32 PM EDT us Chari Vanegas MD URINE ORDERABLES Final Result Performing Organization Address [facility] de Phone Number [facility] [address] [facility]. [address] * Creatinine, Urine, Random (10/06/2024 1:25 PM EDT) Creatinine, Urine 87.40 mg/dL 10/06/2024 1:56 PM EDT [facility] Comment:Reference range not established for this test. Urine 10/06/2024 1:25 PM EDT 10/06/2024 1:32 PM EDT us Chari Vanegas MD URINE ORDERABLES Final Result [facility] [address] [facility]. [address] * Osmolality, Urine (10/06/2024 1:25 PM EDT) Osmolality, Ur 386 50 - 1,200 mOsm/kg 10/06/2024 1:55 PM EDT [facility] Urine 10/06/2024 1:25 PM EDT 10/06/2024 1:32 PM EDT Chari Vanegas MD URINE ORDERABLES Final Result Performing Organization Address [facility] Co de Phone Number [facility] [address] [facility]. [address] * Urine Drug Confirmation (10/06/2024 11:51 [...] PRESENT 10/09/2024 3:23 PM EDT [facility] MEDICAL INSTRUCTOR STIMULANTS NOT PRESENT 3:23 PM EDT [facility] OPIOID ANALGESICS PRESENT 025 3:23 PM EDT [facility] Oxycodone 329 ng/mL 10/09/2024 3:23 PM EDT [facility] Oxymorphone 61 ng/mL 10/09/2024 3:23 PM EDT [facility] Tramadol >1000 ng/mL 10/09/2024 3:23 PM ED[facility] OPIOID ANTAGONISTS NOT PRESENT 10/09 3:23 PM [facility] SEDATIVES/MUSCLE RELAXANTS NOT PRESENT 10/09/2024 3:23 PM EDT [facility] TRICYCLIC ANTIDEPRESSANTS NOT PRESENT 10/09/2024 3:23 PM EDT [facility] Urine 10/06/2024 11:5 1 AM EDT 10/06/2024 1:13 PM EDT Bisi Hernandez DO URINE ORDERABLES Final Result Performing Organization Address City/State/[facility] Co de Phone Number [facility] [address] [address] * (ABNORMAL) Urine Drug Screen Reflex to Confirmation (10/06/2024 11:51 AM EDT) Amphetamine, 500 ng/mL Cutoff Negative Negative 10/06/2024 1:13 PM EDT [facility] Barbiturates UR, 300 ng/mL Cutoff Negative Negative 10/06/2024 1:13 PM EDT [facility] Buprenorphine, 5 ng/mL Cutoff Negative Negative 10/06/2024 1:13 PM EDT [facility] Benzodiazepines UR, 300 ng/mL Cutoff Negative Negative 10/06/2024 1:13 PM EDT [facility] Cocaine UR, 300 ng/mL Cutoff Negative Negative 10/06/2024 1:13 PM EDT [facility] Methadone, UR, 300 ng/mL Cutoff Negative Negative 10/06/2024 1:13 PM EDT [facility] Opiates UR, 300 ng/mL Cutoff Negative Negative 10/06/2024 1:13 PM EDT [facility] Oxycodone, 100 ng/mL Cutoff Presumptive Positive(A) Negative 10/06/2024 1:13 PM EDT [facility] Tricyclic Antidepressants, 300 ng/mL Cutoff Negative Negative 10/06/2024 1:13 PM EDT [facility] Comment:This test has been d eveloped and its performance characteristics determined by [facility] which is certified under [...] Cutoff Negative Negative 10/06/2024 1:13 PM EDT [facility] Comment:This is a screening method only and may be associated with false positive and/or false negative results. Results are not definitive without additional confirmatory testing by mass spectrometry. Fentanyl, 2 ng/mL Cutoff Negative Negative 10/06/2024 1:13 PM EDT [facility] Comment:This test has been d eveloped and its performance characteristics determined by [facility] which is certified under [...] AM EDT 10/06/2024 11:58 AM EDT Narrative [facility] - 10/06/2024 1:13 PM EDT CONFIRMATION TO FOLLOW Bisi Akella DO URINE ORDERABLES Final Result Performing Organization Address City/[facility]/ZIP Co de Phone Number [facility] [address] [place] [address] * Chloride, urine, random (10/06/2024 11:51 AM EDT) Chloride, Ur <15 mmol/L 10/06/2024 1:13 PM EDT [facility] Comment:Reference range not established for this test. Urine 10/06/2024 11:5 1 AM EDT 10/06/2024 11:57 AM EDT Vimblyella DO URINE ORDERABLES Final Result Performing Organization Address City/[facility] Co de Phone Number [facility] [address] * Potassium, urine, random (10/06/2024 11:51 AM EDT) Potassium Urine Random 49.0 mmol/L 10/06/2024 1:13 PM EDT [facility] Comment:Reference range not established for this test. Urine 10/06/2024 11:5 1 AM EDT 10/06/2024 11:57 AM EDT iBsi Hernandez DO URINE ORDERABLES Final Result Performing Organization Address City/[facility]/ZIP Co de Phone Number [facility] [address] * Sodium, urine, random (10/06/2024 11:51 AM EDT) Sodium, Ur <10 mmol/L 10/06/2024 1:13 PM EDT [facility] Comment:Reference range not established for this test. Urine 10/06/2024 11:5 1 AM EDT 10/06/2024 11:57 AM EDT Bisi Hernandez DO URINE ORDERABLES Final Result Performing Organization Address [facility] Co de Phone Number [facility] [address] * Urinalysis w/Rfl to Microscopic (10/06/2024 11:51 AM EDT) Color, UA Yellow Yellow,Straw 10/06/2024 12:25 PM EDT [facility] Clarity, UA Clear Clear 10/06/2024 12:25 PM EDT [facility] Specific [place], UA 1.014 1.005 - 1.035 10/06/2024 12:25 PM EDT [facility] pH, UA 6.0 5.0 - 8.0 10/06/2024 12:25 PM EDT [facility] Protein, UA Negative Negative mg/dL 10/06/2024 12:25 PM EDT [facility] Glucose, UA Negative Negative mg/dL 10/06/2024 12:25 PM EDT [facility] Ketones, UA Negative Negative mg/dL 10/06/2024 12:25 PM EDT [facility] Bilirubin, UA Negative Negative 10/06/2024 12:25 PM EDT [facility] Blood, UA Negative Negative 10/06/2024 12:25 PM EDT [facility] Nitrite, UA Negative Negative 10/06/2024 12:25 PM EDT [facility] Urobilinogen, UA <2.0 0.2 - 1.9 mg/dL 10/06/2024 12:25 PM EDT [facility] Leukocyte Esterase, UA Negative Negative 10/06/2024 12:25 PM EDT [facility] Urine 10/06/2024 11:5 1 AM EDT 10/06/2024 11:57 AM EDT Narrative [facility] - 10/06/2024 12:25 PM EDT Microscopic testing is not performed when the dipstick is negative for blood, leukocyte, protein and nitrite. us Bisi Hernandez DO URINE ORDERABLES Final Result Performing Organization Address City/[facility]/ZIP Co de Phone Number [facility] [address] * Lactic Acid, STAT (10/06/2024 7:38 AM EDT) Lactate 0.9 0.5 - 2.2 mmol/L 10/06/2024 8:05 AM EDT [facility] Plasma 10/06/2024 7:38 AM EDT 10/06/2024 7:42 AM EDT Chari Vanegas MD LAB BLOOD ORDERABLES Final Resul t Performing Organization Address City/[facility]/ZIP Co de Phone Number [facility] [address] * (ABNORMAL) CBC, STAT (10/06/2024 7:37 AM EDT) WBC 5.6 3.8 - 10.8 10E3/uL 10/06/2024 8:22 AM EDT [facility] RBC 2.50(L) 4.20 - 5.80 10E6/uL 10/06/2024 8:22 AM EDT [facility] Hemoglobin 9.0(L) 13.2 - 17.1 g/dL 10/06/2024 8:22 AM EDT [facility] Hematocrit 25.3(L) 38.5 - 50.0 % 10/06/2024 8:22 AM EDT [facility] MCV 101.2(H) 80.0 - 100.0 fL 10/06/2024 8:22 AM EDT [facility] MCH 36.0(H) 27.0 - 33.0 pg 10/06/2024 8:22 AM EDT [facility] MCHC 35.6 32.0 - 36.0 g/dL 10/06/2024 8:22 AM EDT [facility] RDW 17.7(H) 11.0 - 15.0 % 10/06/2024 8:22 AM EDT [facility] Platelets 52(L) 140 - 400 10E3/uL 10/06/2024 8:22 AM EDT [facility] Comment: Specimen checked for clots. None detected. Slide Reviewed for PLT Clumps. None Seen. MPV 8.2 7.5 - 11.5 fL 10/06/2024 8:22 AM EDT [facility] Whole Blood 10/06/2024 7:37 AM EDT 10/06/2024 7:43 AM EDT us Chari Vanegas MD LAB BLOOD ORDERABLES Final Resul t [facility] [address] [place] [address], [facility] * (ABNORMAL) Comprehensive Metabolic Panel (10/06/2024 7:37 AM EDT) Sodium 129(L) 133 - 146 mmol/L 10/06/2024 8:16 AM EDT [facility] Potassium 4.4 3.5 - 5.3 mmol/L 10/06/2024 8:16 AM EDT [facility] Chloride 100 98 - 110 mmol/L 10/06/2024 8:16 AM EDT [facility] CO2 18(L) 21 - 33 mmol/L 10/06/2024 8:16 AM EDT [facility] Anion Gap 11 3 - 16 mmol/L 10/06/2024 8:16 AM EDT [facility] BUN 62(H) 7 - 25 mg/dL 10/06/2024 8:16 AM EDT [facility] Creatinine 3.40(H) 0.60 - 1.30 mg/dL 10/06/2024 8:16 AM EDT [facility] Glucose 98 70 - 100 mg/dL 10/06/2024 8:16 AM EDT [facility] Calcium 9.5 8.6 - 10.3 mg/dL 10/06/2024 8:16 AM EDT [facility] Total Bilirubin 14.3(H) 0.0 - 1.5 mg/dL 10/06/2024 8:16 AM EDT [facility] AST 57(H) 13 - 39 U/L 10/06/2024 8:16 AM EDT [facility] ALT 29 7 - 52 U/L 10/06/2024 8:16 AM EDT [facility] Alkaline Phosphatase 158(H) 36 - 125 U/L 10/06/2024 8:16 AM EDT [facility] Total Protein 5.6(L) 6.4 - 8.9 g/dL 10/06/2024 8:16 AM EDT [facility] Albumin 3.6 3.5 - 5.7 g/dL 10/06/2024 8:16 AM EDT [facility] Osmolality, Calculated 286 278 - 305 mOsm/kg 10/06/2024 8:16 AM EDT [facility] EGFR 22 10/06/2024 8:16 AM [facility] Comment:As of 2021, the estimated [...] MD LAB BLOOD ORDERABLES Final Resul t [facility] [address] [place] [address], [facility] * (ABNORMAL) Venous Blood Gas, Line/Syringe, STAT (10/06/2024 7:37 AM EDT) PH-Line Draw 7.27(L) 7.32 - 7.42 10/06/2024 7:46 AM EDT [facility] PCO2-Line Draw 36(L) 41 - 51 mm Hg 10/06/2024 7:46 AM EDT [facility] PO2-Line Draw 44(H) 25 - 40 mm Hg 10/06/2024 7:46 AM EDT [facility] HCO3-Line Draw 17(L) 24 - 28 mmol/L 10/06/2024 7:46 AM EDT [facility] CO2 Content-Line Draw 18(L) 25 - 29 mmol/L 10/06/2024 7:46 AM EDT [facility] Base Excess-Line Draw -9.6(L) -2.0 - 3.0 mmol/L 10/06/2024 7:46 AM EDT [facility] %HBO2-Line Draw 69.8 40.0 - 70.0 % 10/06/2024 7:46 AM EDT [facility] Carboxyhgb-Ludivina e Draw 0.7 % 10/06/2024 7:46 AM EDT [facility] Comment: CARBOXYHEMOGLOBIN (CO) REFERENCE RANGES: Non-Smokers: <2 % Smokers: <8 % TOXIC: >20 % Methemoglobin- Line Draw 0.3 0.0 - 1.5 % 10/06/2024 7:46 AM EDT [facility] Reduced Hemoglobin-Ludivina e Draw 29.2(H) 0.0 - 5.0 % 10/06/2024 7:46 AM EDT [facility] Venous, Line Draw 10/06/2024 7:37 AM EDT 10/06/2024 7:43 AM EDT us Chari Vanegas MD LAB BLOOD ORDERABLES Final Resul t [facility] [address] [place] [address], [facility] * (ABNORMAL) Venous Blood Gas, Line/Syringe, STAT (10/06/2024 4:03 AM EDT) PH-Line Draw 7.21(L) 7.32 - 7.42 10/06/2024 4:16 AM EDT [facility] PCO2-Line Draw 41 41 - 51 mm Hg 10/06/2024 4:16 AM EDT [facility] PO2-Line Draw 32 25 - 40 mm Hg 10/06/2024 4:16 AM EDT [facility] HCO3-Line Draw 16(L) 24 - 28 mmol/L 10/06/2024 4:16 AM EDT [facility] CO2 Content-Line Draw 18(L) 25 - 29 mmol/L 10/06/2024 4:16 AM EDT [facility] Base Excess-Line Draw -10.8(L) -2.0 - 3.0 mmol/L 10/06/2024 4:16 AM EDT [facility] %HBO2-Line Draw 47.5 40.0 - 70.0 % 10/06/2024 4:16 AM EDT [facility] Carboxyhgb-Ludivina e Draw 2.0 % 10/06/2024 4:16 AM EDT [facility] Comment: CARBOXYHEMOGLOBIN (CO) REFERENCE RANGES: Non-Smokers: <2 % Smokers: <8 % TOXIC: >20 % Methemoglobin- Line Draw 0.7 0.0 - 1.5 % 10/06/2024 4:16 AM EDT [facility] Reduced Hemoglobin-Ludivina e Draw 49.8(H) 0.0 - 5.0 % 10/06/2024 4:16 AM EDT [facility] Venous, Line Draw 10/06/2024 4:03 AM EDT 10/06/2024 4:12 AM EDT us Bisi Hernandez DO LAB BLOOD ORDERABLES Final Resul t [facility] [address] * (ABNORMAL) Protime-INR (10/06/2024 4:01 AM EDT) Protime 21.3(H) 12.1 - 15.1 seconds 10/06/2024 4:40 AM EDT [facility] INR 1.8(H) 0.9 - 1.1 10/06/2024 4:40 AM EDT [facility] Comment: RECOMMENDED THERAPEUTIC RANGES USING INR : Stable oral anticoagulant therapy: 2.0 - 3.0 Mechanical prosthetic heart valve: 2.5 - 3.5 Recurrent acute myocardial infarction: 2.5 - 3.5 Plasma 10/06/2024 4:0 1 AM EDT 10/06/2024 4:11 AM EDT us Bisi Hernandez DO LAB BLOOD ORDERABLES Final Resul t Performing Organization Address City/State/[facility] Co de Phone Number [facility] [address] * (ABNORMAL) Hepatic Function Panel, AM (10/06/2024 4:01 AM EDT) Total Bilirubin 14.7(H) 0.0 - 1.5 mg/dL 10/06/2024 4:57 AM EDT [facility] Bilirubin, Direct 7.08(H) 0.00 - 0.40 mg/dL 10/06/2024 4:57 AM EDT [facility] AST 60(H) 13 - 39 U/L 10/06/2024 4:57 AM EDT [facility] ALT 31 7 - 52 U/L 10/06/2024 4:57 AM EDT [facility] Alkaline Phosphatase 162(H) 36 - 125 U/L 10/06/2024 4:57 AM EDT [facility] Total Protein 5.3(L) 6.4 - 8.9 g/dL 10/06/2024 4:57 AM EDT [facility] Albumin 3.4(L) 3.5 - 5.7 g/dL 10/06/2024 4:57 AM EDT [facility] Bilirubin, Indirect 7.62(H) 0.00 - 1.10 mg/dL 10/06/2024 4:57 AM EDT [facility] Plasma 10/06/2024 4:01 AM EDT 10/06/2024 4:22 AM EDT [employer] DO LAB BLOOD ORDERABLES Final Resul t Performing Organization Address City/[facility]/ZIP Co de Phone Number [facility] [address] [facility]. [address] * Magnesium (10/06/2024 4:01 AM EDT) Magnesium 1.8 1.5 - 2.5 mg/dL 10/06/2024 4:57 AM EDT [facility] Plasma 10/06/2024 4:01 AM EDT 10/06/2024 4:22 AM EDT [email or web address] LAB BLOOD ORDERABLES Final Resul t Performing Organization Address [facility] de Phone Number [facility] [address] [facility]. [address] * (ABNORMAL) Renal Function Panel w/EGFR (10/06/2024 4:01 AM EDT) Sodium 129(L) 133 - 146 mmol/L 10/06/2024 4:57 AM EDT [facility] Potassium 4.7 3.5 - 5.3 mmol/L 10/06/2024 4:57 AM EDT [facility] Chloride 100 98 - 110 mmol/L 10/06/2024 4:57 AM EDT [facility] CO2 16(L) 21 - 33 mmol/L 10/06/2024 4:57 AM EDT [facility] Anion Gap 13 3 - 16 mmol/L 10/06/2024 4:57 AM EDT [facility] BUN 61(H) 7 - 25 mg/dL 10/06/2024 4:57 AM EDT [facility] Creatinine 3.49(H) 0.60 - 1.30 mg/dL 10/06/2024 4:57 AM EDT [facility] Glucose 104(H) 70 - 100 mg/dL 10/06/2024 4:57 AM EDT [facility] Calcium 9.2 8.6 - 10.3 mg/dL 10/06/2024 4:57 AM EDT [facility] Phosphorus 5.3(H) 2.1 - 4.7 mg/dL 10/06/2024 4:57 AM EDT [facility] Albumin 3.4(L) 3.5 - 5.7 g/dL 10/06/2024 4:57 AM EDT [facility] Osmolality, Calculated 286 278 - 305 mOsm/kg 10/06/2024 4:57 AM EDT [facility] EGFR 22 10/06/2024 4:57 AM EDT [facility] Comment:As of 2021, the estimated [...] DO LAB BLOOD ORDERABLES Final Resul t [facility] [address] [place] [address], [facility] * (ABNORMAL) CBC (10/06/2024 4:01 AM EDT) WBC 7.6 3.8 - 10.8 10E3/uL 10/06/2024 5:16 AM EDT [facility] RBC 2.77(L) 4.20 - 5.80 10E6/uL 10/06/2024 5:16 AM EDT [facility] Hemoglobin 10.1(L) 13.2 - 17.1 g/dL 10/06/2024 5:16 AM EDT [facility] Hematocrit 28.4(L) 38.5 - 50.0 % 10/06/2024 5:16 AM EDT [facility] MCV 102.4(H) 80.0 - 100.0 fL 10/06/2024 5:16 AM EDT [facility] MCH 36.4(H) 27.0 - 33.0 pg 10/06/2024 5:16 AM EDT [facility] MCHC 35.5 32.0 - 36.0 g/dL 10/06/2024 5:16 AM EDT [facility] RDW 18.0(H) 11.0 - 15.0 % 10/06/2024 5:16 AM EDT [facility] Platelets 53(L) 140 - 400 10E3/uL 10/06/2024 5:16 AM EDT [facility] Comment:Specimen checked for clots. None detected. MPV 8.4 7.5 - 11.5 fL 10/06/2024 5:16 AM EDT [facility] Whole Blood 10/06/2024 4:01 AM EDT 10/06/2024 4:11 AM EDT us Bisi Hernandez DO LAB BLOOD ORDERABLES Final Resul t [facility] [address] * Hepatitis C Antibody (10/06/2024 4:01 AM EDT) HCV Ab Nonreactive Nonreactive 10/06/2024 5:12 AM EDT [facility] Comment:Health Department no tified in accordance with reportable infectious disease guidelines. Serum 10/06/2024 4:01 AM EDT 10/06/2024 4:11 AM EDT Narrative [facility] - 10/06/2024 5:12 AM EDT Antibodies to HCV not detected; does not exclude the possibility of exposure to HCV. [employer] LAB BLOOD ORDERABLES Final Resul t Performing Organization Address City/[facility]/ZIP Co de Phone Number [facility] [address] [facility]. [address] * (ABNORMAL) Hepatitis B Surface Antibody, Quantitati (10/06/2024 4:01 AM EDT) Hep B S Ab Reactive( A) Nonreactive 10/06/2024 5:16 AM EDT [facility] HBSAB NUMBER 11.50(H) 0.00 - 7.99 mIU/mL 10/06/2024 5:16 AM EDT [facility] Serum 10/06/2024 4:01 AM EDT 10/06/2024 4:11 AM EDT [facility] - 10/06/2024 5:16 AM EDT Individual is considered immune to HBV infection. [employer] LAB BLOOD ORDERABLES Final Resul t Performing Organization Address [facility] Co de Phone Number [facility] [address] [facility]. [address] * Hepatitis B surface antigen (10/06/2024 4:01 AM EDT) Hep B Surface Ag Nonreactive Nonreactive 10/06/2024 5:07 AM EDT [facility] Comment:Health Department no tified in accordance with reportable infectious disease guidelines. Serum 10/06/2024 4:01 AM EDT 10/06/2024 4:11 AM EDT [facility] - 10/06/2024 5:07 AM EDT Specimen is considered negative for HBsAg. [employer] DO LAB BLOOD ORDERABLES Final Resul t Performing Organization Address City/[facility]/ZIP Co de Phone Number [facility] [address] [facility]. [address] * Hepatitis A Antibody Total (10/06/2024 4:01 AM EDT) Anti-HAV Total (IgG + IgM) Nonreactive 10/06/2024 5:08 AM EDT [facility] Serum 10/06/2024 4:01 AM EDT 10/06/2024 4:11 AM EDT [facility] - 10/06/2024 5:08 AM EDT HAV antibodies not detected [employer] LAB BLOOD ORDERABLES Final Resul t Performing Organization Address City/[facility]/ZIP Co de Phone Number [facility] [address] [facility]. [address] * Hepatitis A IgM (10/06/2024 4:01 AM EDT) Hep A IgM Nonreactive Nonreactive 10/06/2024 5:02 AM EDT [facility] Serum 10/06/2024 4:01 AM EDT 10/06/2024 4:11 AM EDT [facility] - 10/06/2024 5:02 AM EDT IgM anti-HAV not detected. Does not exclude the possibility of exposure to or infection with HAV. Levels of IgM anti-HAV may be below the cut-off in early infection. [employer] LAB BLOOD ORDERABLES Final Resul t Performing Organization Address [facility] Co de Phone Number [facility] [address] [facility]. [address] * (ABNORMAL) Salicylate Level (10/06/2024 4:01 AM EDT) Salicylate Lvl <3(L) 10 - 30 mg/dL 10/06/2024 4:58 AM EDT [facility] Serum 10/06/2024 4:01 AM EDT 10/06/2024 4:22 AM EDT [employer] LAB BLOOD ORDERABLES Final Resul t [facility] [address] * AFP Tumor Marker (10/06/2024 4:01 AM EDT) [facility] AFP-Tumor Marker 2.6 0.0 - 9.0 ng/mL 10/06/2024 4:55 AM EDT [facility] Serum 10/06/2024 4:01 AM EDT 10/06/2024 4:22 AM EDT [facility] - 10/06/2024 4:55 AM EDT The testing method for AFP is a chemiluminescent immunoassay manufactured by [employer] Concentrations of AFP obtained by different assay methods or kits may vary and cannot be used interchangeably. AFP results cannot be interpreted as absolute evidence of the presence or absence of malignant disease. Bisi Hernandez DO LAB BLOOD ORDERABLES Final Resul t [facility] [address] * Upper Respiratory Viral/Bacterial Panel-STAPLING MACHINE OPERATOR Only (10/06/2024 3:12 AM EDT) [facility] Adenovirus Not Detected Not Detected 10/06/2024 11:38 PM EDT [facility] Coronavirus (229E,HKU1,NL63,OC 43) Not Detected Not Detected 10/06/2024 11:38 PM EDT [facility] SARS-CoV-2 Not Detected Not Detected 10/06/2024 11:38 PM EDT [facility] Human Metapneumovirus Not Detected Not Detected 10/06/2024 11:38 PM EDT [facility] Human Rhinovirus/Enterov irus Not Detected Not Detected 10/06/2024 11:38 PM EDT [facility] Influenza A Not Detected Not Detected 10/06/2024 11:38 PM EDT [facility] Influenza A H1 Not Detected Not Detected 10/06/2024 11:38 PM EDT [facility] Influenza A/H1-2009 Not Detected Not Detected 10/06/2024 11:38 PM EDT [facility] Influenza A H3 Not Detected Not Detected 10/06/2024 11:38 PM EDT [facility] Influenza B Not Detected Not Detected 10/06/2024 11:38 PM EDT [facility] Parainfluenza 1 Not Detected Not Detected 10/06/2024 11:38 PM EDT [facility] Parainfluenza 2 Not Detected Not Detected 10/06/2024 11:38 PM EDT [facility] Parainfluenza 3 Not Detected Not Detected 10/06/2024 11:38 PM EDT [facility] Parainfluenza 4 Not Detected Not Detected 10/06/2024 11:38 PM EDT [facility] Resp. Syncycial Virus A Not Detected Not Detected 10/06/2024 11:38 PM EDT [facility] Resp. Syncycial Virus B Not Detected Not Detected 10/06/2024 11:38 PM EDT [facility] Chlamydia pneumoniae Not Detected Not Detected 10/06/2024 11:38 PM EDT [facility] Mycoplasma pneumoniae Not Detected Not Detected 10/06/2024 11:38 PM EDT [facility] Comment: The Respiratory Viral-Bacterial Panel [...] Test results have been sent to the [facility] in accordance with state requirements. For a fact sheet for healthcare providers, see https://www.fda.gov/media/852830/download. For a fact sheet for patients, see https://www.fda.gov/media/788881/download. Nasopharyngeal Swab NASOPHARYNGEAL SWAB / Unknown 10/06/2024 3:12 AM EDT 10/06/2024 5:41 PM EDT Comment:STAPLING MACHINE OPERATOR Bisi Hernandez DO BODY FLUIDS AND STOOLS ORDERABLE S Final Result [facility] [address] [place] [address], [facility] * X-ray Portable Chest (10/06/2024 1:16 [...] MD at 10/06/2024 2:33 AM EDT Bisi Hernanedz DO [facility] DIAGNOSTIC IMAGING ORDERABLE S Final Result * Phosphatidylethanol Confirmation, B (10/06/2024 1:04 AM EDT) PETH 16:0/18.1 (POPETH) <10 Cutoff: 10 ng/mL 10/10/2024 3:11 AM EDT [facility] Comment: Phosphatidylethanol (PEth) homologues result interpretation [...] Cutoff: 10 ng/mL 10/10/2024 3:11 AM EDT [facility] Comment: PEth 16:0/18:2 (PLPEth) Reference ranges are not well established PEth Interpretation Negative. 10/10 3:11 AM EDT [facility] [facility] Comment: ADDITIONAL INFORMATION This report is intended for use in clinical monitoring and management of patients. It is not intended for use in employment-related testing. This test was developed and its performance characteristics determined by [facility] in a manner consistent with CLIA requirements. This test has not been cleared or approved by the [place].S. Food and Drug Administration. Test Performed by: [address] [address] It Consultant: Kahty Ortiz Ph.D.; CLIA# [id number] Whole Blood 10/06/2024 1:04 AM EDT 10/10/2024 3:11 AM EDT Bisi Akana maría [employer] [facility] BLOOD ORDERABLES Final Resul t [facility] [address] [place] [address]. [address] * (ABNORMAL) Acetaminophen Level (10/06/2024 1:04 AM EDT) Acetaminophen Level <10(L) 10 - 30 ug/mL 10/06/2024 2:08 AM EDT [facility] Serum 10/06/2024 1:04 AM EDT 10/06/2024 1:30 AM EDT Bisi Akana maría [employer] [facility] BLOOD ORDERABLES Final Resul t Performing Organization Address [facility] Co de Phone Number [facility] [address] [place] [address]. [address] * Ethanol, Serum (10/06/2024 1:04 AM EDT) Ethanol <10 0 - 10 mg/dL 10/06/2024 2:08 AM EDT [facility] Serum 10/06/2024 1:04 AM EDT 10/06/2024 1:30 AM EDT [facility]isi [facility] BLOOD ORDERABLES Final Resul t Performing Organization Address City/[facility]/ZIP Co de Phone Number [facility] [address] [place] [address]. [address] * #2 Blood culture-Peripheral site 2 (10/06/2024 1:04 AM EDT) Culture Result No Growth After 5 Days [facility] Blood BLOOD SPECIMEN / Unknown 10/06/2024 1:04 AM EDT 10/06/2024 4:57 AM EDT Narrative [facility] - 10/11/2024 5:05 AM EDT Suboptimal volume of blood received. Interpret results with caution. us Bisi Akella DO MICROBIOLOGY - GENERAL ORDERABLE S Final Result Performing Organization Address City/[facility]/ZIP Co de Phone Number [facility] [address] * #1 Blood culture-Peripheral site 1 (10/06/2024 1:04 AM EDT) Culture Result No Growth After 5 Days [facility] Blood BLOOD SPECIMEN / Unknown 10/06/2024 1:04 AM EDT 10/06/2024 4:57 AM EDT Narrative [facility] - 10/11/2024 5:01 AM EDT Suboptimal volume of blood received. Interpret results with caution. Bisi Mary DOZIER MICROBIOLOGY - GENERAL ORDERABLE S Final Result Performing Organization Address [facility] Co de Phone Number [facility] [address] * Ammonia (10/06/2024 1:04 AM EDT) Ammonia 77 27 - 90 ug/dL 10/06/2024 2:00 AM EDT [facility] Plasma 10/06/2024 1:04 AM EDT 10/06/2024 1:30 AM EDT Bisi ITYZana maría [employer] LAB BLOOD ORDERABLES Final Resul t Performing Organization Address [facility]/ZIP Co de Phone Number [facility] [address] * Thyroid Function [place] (10/06/2024 1:04 AM EDT) TSH 0.84 0.45 - 4.12 uIU/mL 10/06/2024 2:20 AM EDT [facility] Serum 10/06/2024 1:04 AM EDT 10/06/2024 1:39 AM EDT Bisi Akana maría [employer] LAB BLOOD ORDERABLES Final Resul t [facility] [address] [facility] * (ABNORMAL) Protime-INR (10/06/2024 1:04 AM EDT) Protime 22.8(H) 12.1 - 15.1 seconds 10/06/2024 1:48 AM EDT [facility] INR 1.9(H) 0.9 - 1.1 10/06/2024 1:48 AM EDT [facility] Comment: RECOMMENDED THERAPEUTIC RANGES USING INR : Stable oral anticoagulant therapy: 2.0 - 3.0 Mechanical prosthetic heart valve: 2.5 - 3.5 Recurrent acute myocardial infarction: 2.5 - 3.5 Plasma 10/06/2024 1:04 AM EDT 10/06/2024 1:30 AM EDT [facility] LAB BLOOD ORDERABLES Final Resul t Performing Organization Address City/[facility]/ZIP Co de Phone Number [facility] [address] [facility] * Lactic Acid, STAT (10/06/2024 1:04 AM EDT) Lactate 1.2 0.5 - 2.2 mmol/L 10/06/2024 1:59 AM EDT [facility] Plasma 10/06/2024 1:04 AM EDT 10/06/2024 1:30 AM EDT [facility] DO LAB BLOOD ORDERABLES Final Resul t [facility] [address] [facility] * (ABNORMAL) CBC, STAT (10/06/2024 1:04 AM EDT) WBC 7.9 3.8 - 10.8 10E3/uL 10/06/2024 2:36 AM EDT [facility] RBC 2.76(L) 4.20 - 5.80 10E6/uL 10/06/2024 2:36 AM EDT [facility] Hemoglobin 9.9(L) 13.2 - 17.1 g/dL 10/06/2024 2:36 AM EDT [facility] Hematocrit 28.0(L) 38.5 - 50.0 % 10/06/2024 2:36 AM EDT [facility] MCV 101.5(H) 80.0 - 100.0 fL 10/06/2024 2:36 AM EDT [facility] MCH 35.7(H) 27.0 - 33.0 pg 10/06/2024 2:36 AM EDT [facility] MCHC 35.2 32.0 - 36.0 g/dL 10/06/2024 2:36 AM EDT [facility] RDW 17.9(H) 11.0 - 15.0 % 10/06/2024 2:36 AM EDT [facility] Platelets 58(L) 140 - 400 10E3/uL 10/06/2024 2:36 AM EDT [facility] Comment: Specimen checked for clots. None detected. Slide Reviewed for PLT Clumps. None Seen. MPV 8.2 7.5 - 11.5 fL 10/06/2024 2:36 AM EDT [facility] Whole Blood 10/06/2024 1:04 AM EDT 10/06/2024 1:31 AM EDT us Bisi Hernandez DO LAB BLOOD ORDERABLES Final Resul t [facility] [address] [id number], [facility] * (ABNORMAL) Comprehensive Metabolic Panel (10/06/2024 1:04 AM EDT) Sodium 127(L) 133 - 146 mmol/L 10/06/2024 2:05 AM EDT [facility] Potassium 4.5 3.5 - 5.3 mmol/L 10/06/2024 2:05 AM EDT [facility] Chloride 99 98 - 110 mmol/L 10/06/2024 2:05 AM EDT [facility] CO2 18(L) 21 - 33 mmol/L 10/06/2024 2:05 AM EDT [facility] Anion Gap 10 3 - 16 mmol/L 10/06/2024 2:05 AM EDT [facility] BUN 59(H) 7 - 25 mg/dL 10/06/2024 2:05 AM EDT [facility] Creatinine 3.54(H) 0.60 - 1.30 mg/dL 10/06/2024 2:05 AM EDT [facility] Glucose 116(H) 70 - 100 mg/dL 10/06/2024 2:05 AM EDT [facility] Calcium 9.0 8.6 - 10.3 mg/dL 10/06/2024 2:05 AM EDT [facility] Total Bilirubin 14.8(H) 0.0 - 1.5 mg/dL 10/06/2024 2:05 AM EDT [facility] AST 61(H) 13 - 39 U/L 10/06/2024 2:05 AM EDT [facility] ALT 33 7 - 52 U/L 10/06/2024 2:05 AM T [facility] Alkaline Phosphatase 174(H) 36 - 125 U/L 10/06/2024 2:05 AM T [facility] Total Protein 5.2(L) 6.4 - 8.9 g/dL 10/06/2024 2:05 AM T [facility] Albumin 3.3(L) 3.5 - 5.7 g/dL 10/06/2024 2:05 AM T [facility] Osmolality, Calculated 282 278 - 305 mOsm/kg 10/06/2024 2:[facility] 21 10/06/2024 2:05 AM [facility] Comment:As of 2021, the estimated [...] 10/06/2024 1:40 AM EDT us Bisi Hernandez LAB BLOOD ORDERABLES Final Resul t [facility] [address] [id number] documented in this encounter Visit [...] Daily as needed, Allergies, itching, Starting on [facility] 10/11/24 at 1030 melatonin tablet Tab 6 [...] 0607 (Not Given - Provider: Soco Milton, RN - Reason: Patient/family refused) lactulose (CHRONULAC) [...] 0636 (Given - Provider: Chelsy Bush RN) 06 (Given - Provider: Soco Milton RN) magnesium [...] Wolff RN)1335 (Given - Provider: Anu Wolff RN)2104 (Given - Provider: Chelsy Bush RN) 0833 (Given - Provider: Anu Wolff RN)1317 (Given - Provider: Anu Wolff RN)2023 (Given - Provider: Soco Milton RN) 0849 [...] Chelsy Bush RN) 0834 (Given - Provider: Aun Wolff RN)2022 (Given [...] 2108 (See Alternative - Provider: Chelsy Bush, ЛЮИЯ) 0156 (See Alternative - Provider: Chelsy Bush [...] Wolff RN)2031 (Given - Provider: Soco Milton, RN) 0245 (Given - Provider: Soco Milton [...] documented as of this encounter Care Teams Welt Cutter Relationship Specialty Start Date End Date Enedina Mcguire NP [address] [place] [address] PCP - General Internal Medicine 10/05/24 documented as of this encounter
--- OUTSIDE RECORDS SUMMARY | 2024-10-10 12:01 | XMS_ITS | Encounter Summary ---
Author Organization [facility] Address [address] [place] [address] Care Team Providers Care Registered Nurse Cardiac Telemetry Name Role Phone Enedina Mcguire NP Primary Care Provider [phone] Source Comments This information has been disclosed [...] release of HIV test results or diagnoses. [id number] Reason for Visit * Auth/Cert (Routine) Specialty Diagnoses / Procedures Referred By Shane hernadez Referred To Contact General Internal Medicine Diagnoses [facility] [address] [place] [address] Phone: tel: Referral ID Status Reason Start Date Expiration Date Visits Re quested Visits Authorized [id number] 1 1 Encounter Details Date Type Department Care Team (Late st Contact Info) Description 10/10/2024 12:01 PM EDT Anesthesia Event [facility] ENDOSCOPY [address] [place] [address] Cady Bhat MD [address] [phone] Bob Leggett MD [address] [facility] [address] [place] [address] Anesthesia Record Procedure Summary Procedure [...] Recorded In the past 12 months has [employer], [employer], or [employer] threatened to shut off services in [...] Bhat MD - 10/10/2024 10:15 AM EDT [facility] DEPARTMENT OF ANESTHESIOLOGY PRE-PROCEDURAL EVALUATION Julien [...] Resource Strain: Low Risk (07/09/2024) Received from [facility] Overall Financial Resource Strain (CARDIA) Difficulty [...] No Physical Activity: Unknown (07/14/2024) Received from [facility] Exercise Vital Sign Days of Exercise per Week: Patient unable to answer Minutes of Exercise per Session: Not on file Stress: Patient Unable To Answer (07/14/2024) Received from [facility] [place] of Occupational Health - Occupational Stress Questionnaire Feeling of Stress : Patient unable to answer Social Connections: Patient Unable To Answer (07/14/2024) Received from [facility] Social Connection and Isolation Panel [NHANES] [...] in detail. Questions answered. Plan discussed with HIGHWAY CONSTRUCTION INSPECTOR. [1] Allergies Allergen Reactions Adhesive Itching and Rash Tegaderm adhesive on Ivs, pt states its tolerable Duloxetine Other (See Comments) Became Manic documented in this encounter Plan of Treatment Upcoming Encounters Date Type Department Care Team (Late st Contact Info) Description 12/05/2024 8:01 AM EDT Hospital Encounter [facility] ENDOSCOPY [address] [place] [address] Chris Orosco MD [address] [place] [phone] 12/05/2024 8:01 AM EDT - 12/05/2024 8:31 AM EDT Surgery [facility] ENDOSCOPY [address] [place] [address] Chris Orosco MD [address] [place] [phone] EGD Scheduled Procedures Name Priority Associated Diagnoses [...] 10/09/24699 - 10/10/2465810/10/24699 - 10/11/24 0659 Shift 1963-5705 [phone] 24 Hour Total 8687-8028 0282-5511 4793-4415 24 Hour Total INTAKE P.O. 210 210 [...] documented as of this encounter Care Teams Registered Nurse Cardiac Telemetry Relationship Specialty Start Date End Date Enedina Mcguire NP [address] [place] [address] PCP - General Internal Medicine 10/05/24 documented as of this encounter
--- OUTSIDE RECORDS SUMMARY | 2024-10-14 08:42 | XMS_ITS | Encounter Summary ---
Author Organization [place] Address [facility] [place] [address] Care Team Providers Care Soil Fertility Specialist Name Role Phone Enedina Mcguire NP Primary Care Provider [phone] Source Comments This information has been disclosed [...] release of HIV test results or diagnoses. EXR3949.24 Health Reason for Visit * Auth/Cert (Routine) Specialty Diagnoses / Procedures Referred By Shane hernadez Referred To Contact General Internal Medicine Diagnoses AMS [facility] [address] [place] [address] Phone: tel: Referral ID Status Reason Start Date Expiration Date Visits Re quested Visits Authorized [id number] 1 1 Encounter Details Date Type Department Care Team (Late st Contact Info) Description 10/14/2024 8:42 AM EDT - 10/14/2024 9:27 AM EDT Surgery [facility] Cardiac [employer] [address] [place] [address] Irving Matta MD [address] [facility] [place] [address] Left Heart Cath Surgery Details [...] the past 12 months has th e [employer], gas, oil, or water [employer] threatened to shut off services in your [...] any time in the past 12 m [facility], were you homeless or [...] Kandy Fuentes - 10/17/2024 10:29 AM EDT [place] Care Management Discharge Summary Patient name: Julien [...] post discharge: Not Applicable Kandy BAE RN [phone] * William Blount MD - 10/17/2024 8:50 AM EDT [place] Inpatient Discharge Summary Patient: Julien Gilbert Age: 39 y.o. [facility]: [id number] Date of Admission: 10/05/2024 Date of Discharge: 10/17/2024 Attending Physician: Chelsy Lerner MD Primary Care Physician: Enedina Mcguire NP Diagnoses Present on Admission Past Medical History: Diagnosis Date Alcoholic cirrhosis of liver (CMS-HCC) Esophageal varices (CMS-HCC) Hepatorenal syndrome (CMS-HCC) Hypertension Other hyperlipidemia 07/26/2024 Renal cell carcinoma (CMS-HCC) Thrombocytopenia ([facility]) Thyroid disease Discharge Diagnoses Active Hospital Problems [...] Case IDs Date Procedure Surgeon Location Status [id number] 10/10/24 EGD Lino Soto MD ENDOSCOPY Comp [id number] 10/14/24 Left Heart Cath Irving Matta MD [...] at 10/08/2024 1:12 PM EDT US Duplex Vbi-Aao-Ukajxer Comp Final Result IMPRESSION: ABDOMEN 1. Cirrhotic [...] 90 tablet Refills: 0 naloxone 4 mg/actuation [place] Commonly known as: NARCAN Apply 1 spray [...] Your Medications These medications were sent to [facility] [address] [place] [address] [facility] [address] Hours: Sunday - Sunday: 8:00AM - 6:00PM FLUoxetine 20 MG capsule lactulose 10 gram/15 mL solution loratadine 10 mg tablet methocarbamoL 500 MG tablet midodrine 10 MG tablet naloxone 4 mg/actuation [place] oxyCODONE 5 MG immediate release tablet Discharge [...] Noted Acute kidney injury superimposed on CKD ([facility]) [N17.9, N18.9] 07/25/2024 Neck pain with history of cervical spinal surgery [M54.2, Z98.890] 10/07/2024 SBP (spontaneous bacterial peritonitis) ([facility]) [K65.2] 09/08/2024 Anemia [D64.9] 09/05/2024 Metabolic acidosis with normal anion gap and bicarbonate losses [E87.20] 09/03/2024 GERD (gastroesophageal reflux disease) [K21.9] 09/03/2024 Renal mass, left [N28.89] 08/18/2024 Metabolic encephalopathy [G93.41] 07/26/2024 Thrombocytopenia ([facility]) [D69.6] Decompensated cirrhosis ([facility]) [K72.90, K74.60] 07/25/2024 Resolved Hospital Problems Diagnosis [...] Select Supplement: Boost-1 kcal/ml supplement ([facility] only) As listed above, low sodium [...] AM EDT 10/17/2024 naloxone (NARCAN) 4 mg/actuation [place] Apply 1 spray in one nostril if [...] Hughes MD - 10/17/2024 10:23 AM EDT [facility] PROGRESS NOTE Name: Julien Gilbert CSN: [id number] Consulted by: Chelsy Lerner MD Reason for [...] Yes Past Week naloxone (NARCAN) 4 mg/actuation [place] Apply 1 spray in one nostril if [...] nucleated cells, <2000 RBCs 10% Polynuclear, 90% [place] nuc. There were initial reports of gram [...] chemical dependency treatment as outpatient. - [facility] with no obstructive coronary disease - Psych eval for PTSD With recommendation of sertraline - Given his renal dysfunction, will plan to list for [facility] when he qualifies on 10/22/2024. Labs next week - Plan for d/c today Bobby Sidhu MD Transplant Automatic Pinsetter Mechanic Please see the body of the resident, [...] <30 until October 22. Waiting for [facility] today. ASSESSMENT NADIYA on CKD, last [...] Staff. Jeremiah Gamino PGY4 Nephrology. Pager no. [phone] Chief Complaint No chief complaint on file. Reason for Consult ANDIYA History of Present Illness Julien Gilbert is [...] at 10/08/2024 1:12 PM EDT US Duplex Vzf-Bmn-Uvnvvmm Comp Final Result IMPRESSION: ABDOMEN 1. Cirrhotic [...] imaging has been performed at [facility]. -CT Head w/o contrast -Imaging [...] Select Supplement: Boost-1 kcal/ml supplement ([facility] only) Code Status: Full Code Signed: [...] another specialty or practice, other licensed professional (PT/OT/UNHAIRING MACHINE OPERATOR/RT), or a non-medical community professional: Hepatology, [...] due to positioning during LHC on 10/14. [place]dez the worst in CVR, but has improved [...] Kumar RD - 10/16/2024 1:08 PM EDT [facility] Medical Nutrition Therapy Follow-Up Diet Order/Nutrition Support: Regular diet, Boost TID - Vanilla preference Pertinent Information: This is a 39 year old male history of ETOH cirrhosis d/b HE, ascites with SBP who is admitted for AMS. Precipitant of his HE likely SBP. Diagnostic paracentesis at OSH reportedly showed 61 nucleated cells, <2000 RBCs 10% Polynuclear, 90% [place] nuc. There were initial reports of gram [...] Based on CBW of 119.5 kg Kcals/day: 9527-9958 (18-21 kcals/kg) Protein g/day: 119-143 (1-1.2 g/kg) [...] Kumar RD, LD Clinical Dietitian Contact via [employer] * Jerad Hughes MD - 10/16/2024 11:03 AM EDT [facility] PROGRESS NOTE Name: Julien Gilbert CSN: [id number] Consulted by: Chelsy Lerner MD Reason for [...] liver (CMS-HCC) Esophageal varices (CMS-HCC) Hepatorenal syndrome ([facility]) Hypertension Other hyperlipidemia 07/26/2024 Renal cell carcinoma (CMS-HCC) Thrombocytopenia ([facility]) Thyroid disease Past Surgical History: Procedure Laterality [...] nucleated cells, <2000 RBCs 10% Polynuclear, 90% [place] nuc. There were initial reports of gram [...] chemical dependency treatment as outpatient. - [facility] with no obstructive coronary disease - Psych eval for PTSD With recommendation of sertraline - Given his renal dysfunction, will plan to list for [facility] when he qualifies on 10/22/2024. - Will follow Bobby Sidhu MD Transplant Automatic Pinsetter Mechanic Please see the body of the resident, [...] <30 until October 22. Waiting for [facility] today. ASSESSMENT NADIYA on CKD, last [...] on 10/08/2024 Iron%- Iron replete PLAN -[facility] yesterday- patient remains at risk of contrast related injury on top of exisiting NADIYA for 24-48 hrs after contrast load. -He is volume overloaded -patient needs to follow up closely with nephrology after discharge Thank you for allowing us to participate in this patient's care. Discussed with Consult Staff. Jeremiah Gamino PGY4 Nephrology. Pager no. [phone] Chief Complaint No chief complaint on file. [...] at 10/08/2024 1:12 PM EDT US Duplex Zbp-Cfw-Qdhxzys Comp Final Result IMPRESSION: ABDOMEN 1. Cirrhotic [...] imaging has been performed at [facility]. -CT Head w/o contrast -Imaging [...] Select Supplement: Boost-1 kcal/ml supplement ([facility] only) Code Status: Full Code Signed: WILLIAM BLOUNT MD 10/15/2024, 10:49 AM Cosigned by Chelsy Lerner MD at 10/15/2024 2:47 PM EDT Associated attestation - Chelsy Lerner MD - 10/15/2024 2:[address] [facility] Medicine Attending Supervision Note Julien [...] another specialty or practice, other licensed professional (PT/OT/UNHAIRING MACHINE OPERATOR/RT), or a non-medical community professional: Hepatology, [...] due to positioning during LHC on 10/14. [place] the worst in CVR, but has improved [...] Hughes MD - 10/15/2024 10:15 AM EDT [facility] PROGRESS NOTE Name: Julien Gilbert CSN: [id number] Consulted by: Chelsy Lerner MD Reason for [...] nucleated cells, <2000 RBCs 10% Polynuclear, 90% [place] nuc. There were initial reports of gram [...] chemical dependency treatment as outpatient. - [facility] yesterday with no obstructive coronary disease - Psych eval for PTSD and medical management - Given his renal dysfunction, will plan to list for [facility] when he qualifies on 10/22/2024. - Will follow Bobby Sidhu MD Transplant Automatic Pinsetter Mechanic Please see the body of the resident, [...] Quan MD - 10/14/2024 2:34 PM EDT [facility] Department of Cardiovascular Health and Diseases [...] <30 until October 22. Waiting for [facility] today. ASSESSMENT NADIYA on CKD, last discharge creatinine 2.4 Baseline Creatinine 1.2-1.3, HRS- NADIYA as no response to holding lasix and albumin UA bland Urine lytes <10/< 15/ 50 Holding lasix give [facility] today Renal Function: Recent Labs 10/14/24 [...] Staff. Jeremiah Gamino PGY4 Nephrology. Pager no. [phone] Chief Complaint No chief complaint on file. [...] at 10/08/2024 1:12 PM EDT US Duplex Kwm-Shv-Hnioyns Comp Final Result IMPRESSION: ABDOMEN 1. Cirrhotic [...] with Acute kidney injury superimposed on CKD ([facility]). Themedical issues being addressed in today's encounter [...] imaging has been performed at [facility]. -CT Head w/o contrast -Imaging [...] required dialysis. Patient is going for [facility] today and will receive contrast, okay [...] Select Supplement: Boost-1 kcal/ml supplement ([facility] only) Code Status: Full Code Signed: [...] to go home as soon as possible. [facility] postponed until today, still on as add [...] another specialty or practice, other licensed professional (PT/OT/UNHAIRING MACHINE OPERATOR/RT), or a non-medical community professional: Hepatology, [...] Hughes MD - 10/14/2024 7:42 AM EDT [facility] PROGRESS NOTE Name: Julien Gilbert CSN: [id number] Consulted by: Chelsy Lerner MD Reason for [...] nucleated cells, <2000 RBCs 10% Polynuclear, 90% [place] nuc. There were initial reports of gram [...] ongoing. Transplant work up ongoing - [facility] today - Transplant nephrology following for [...] - Will follow Bobby Sidhu MD Transplant Automatic Pinsetter Mechanic Please see the body of the resident, [...] Staff. Jeremiah Gamino PGY4 Nephrology. Pager no. [phone] Chief Complaint No chief complaint on file. [...] Hughes MD - 10/13/2024 12:33 PM EDT [facility] PROGRESS NOTE Name: Julien Gilbert CSN: [id number] Consulted by: Fouzia Rene MD Reason for [...] nucleated cells, <2000 RBCs 10% Polynuclear, 90% [place] nuc. There were initial reports of gram [...] ongoing. Transplant work up ongoing - [facility] today - Transplant nephrology following for [...] - Will follow Bobby Sidhu MD Transplant Automatic Pinsetter Mechanic Please see the body of the resident, [...] no psychomotor abnormalities Cognition: short term and residential memory intact Attitude: cooperative Affect: full range [...] home to continue counseling. * Citlaly Fabian, DMITRY - 10/13/2024 10:49 AM EDT [facility] Medical Nutrition Therapy Reason(s) for Completion: [...] Select Supplement: Boost-1 kcal/ml supplement ([facility] only) Pertinent Information: Julien Gilbert is a 39 y.o. Male admitted for Acute kidney injury superimposedon CKD ([facility]) Pt noted to have waxing and waning [...] kg) Body mass index is 32.07 kg/m??. [place] Body Weight: 202 lbs (91.8 kg) +/- 10% Weight History: Wt Readings from Last 10 Encounters: 10/10/24 (!) 263 lb 8 oz (119.5 kg) 09/05/24 (!) 262 lb 9.6 oz (119.1 kg) 09/02/24 (!) 258 lb (117 kg) 08/17/24 (!) 242 lb 11.2 oz (110.1 kg) 07/28/24 (!) 245 lb (111.1 kg) Estimated Nutrition Needs: Based on CBW of 119.5 kg Kcals/day: 0516-1501 (18-21 kcals/kg) Protein g/day: 119-143 (1-1-2 g/kg) [...] Dietitian - Solid Organ Transplant Contact via [employer] Chat * Eileen Schroeder MD, PhD - [...] at 10/08/2024 1:12 PM EDT US Duplex Wkl-Hdc-Mvvjzew Comp Final Result IMPRESSION: ABDOMEN 1. Cirrhotic [...] imaging has been performed at [facility]. -CT Head w/o contrast -Imaging [...] Select Supplement: Boost-1 kcal/ml supplement ([facility] only) Code Status: Full Code Signed: [...] I reviewed the documentation by the medical presentation team member and agree as documented. Any additions or clarifications are listed below. Daily plan was discussed with patient at bedside and questions addressed. Patient ID: Julien Gilbert is a 39 y.o. male currently admitted for Acute kidney injury superimposed on CKD ([facility]) Supplemental History/ ROS: No acute events [...] on CKD ([facility]) Active Problems: NADIYA (acute kidney injury) on CKD ([facility]): Hepatorenal syndrome. Appreciate nephrology consult. S/p albumin X3. Baseline creatinine presumed to be around 2.5. Creatinine now seems to be fluctuating between 2.5-2.9 which may be his new baseline. We will continue to monitor. Spontaneous Bacterial Peritonitis ([facility]): Received 4 days of vancomycin, Ceftriaxone x [...] non-diagnostic due to hypotension. Plan for [facility] today, but now moved to tomorrow. [...] another specialty or practice, other licensed professional (PT/OT/UNHAIRING MACHINE OPERATOR/RT), or a non-medical community professional: Nephrology, [...] 3.64 / 40 \ / / \ PT/INR/PTT - 10/12/2024 PT 25.7 INR [...] at 10/08/2024 1:12 PM EDT US Duplex Bif-Ear-Gnyiaix Comp Final Result IMPRESSION: ABDOMEN 1. Cirrhotic [...] bacterial peritonitis) ([facility]) Neck pain with history of cervical spinal [...] imaging has been performed at [facility]. -CT Head w/o contrast -Imaging [...] Select Supplement: Boost-1 kcal/ml supplement ([facility] only) Code Status: Full Code Signed: [...] I reviewed the documentation by the medical presentation team member and agree as documented. Any [...] on CKD ([facility]) Active Problems: NADIYA (acute kidney injury) on CKD ([facility]): Hepatorenal syndrome. Appreciate nephrology consult. S/p albumin X3. baseline creatinine presumed to be around 2.5. Creatinine improved from its peak and may be now fluctuating around a new baseline. We will continue to monitor. Spontaneous Bacterial Peritonitis ([facility]): He remains afebrile and vital signs have [...] Decompensated cirrhosis ([facility]): Appreciate hepatology consult. He has started his [...] another specialty or practice, other licensed professional (PT/OT/UNHAIRING MACHINE OPERATOR/RT), or a non-medical community professional: Nephrology, [...] cardiac workup pre txp. pLan for [facility] Sunday Liver transplant workup per GI/ [...] concern for hepatorenal syndrome.` Patient came from [facility], paracentesis was performed [...] 706.9 (H) 10/08/2024 No results found for: [id number] , FOLATE Lab Results Component Value Date [...] CRUR No results found for: MICROALBUR , [id number] In addition to the above an extensive [...] 4.6 10/12/2024 Lab Results Component Value Date YWYX10G 7.1 (L) 10/08/2024 PLAN Monitor renal panel [...] AM Colten Huertas MD, KISHOR LIN, CATHYF water/wastewater project engineer Div. of Nephrology [facility] E-mail: [email or web address] This note was completely edited, [...] MD Interval hx No issues. Pending [facility]. Assessment: Renal Function: Cr: 2.77 Bun: [...] cardiac workup pre txp. pLan for [facility] Sunday 4. Liver transplant workup per [...] concern for hepatorenal syndrome.` Patient came from [facility], paracentesis was performed [...] 706.9 (H) 10/08/2024 No results found for: [id number] , FOLATE Lab Results Component Value Date [...] CRUR No results found for: MICROALBUR , [id number] In addition to the above an extensive [...] 3.5 10/11/2024 Lab Results Component Value Date [id number] 7.1 (L) 10/08/2024 PLAN Monitor renal panel [...] AM Colten Huertas MD, KISHOR LIN, PETE water/wastewater project engineer Div. of Nephrology [facility] E-mail: [email or web address] This note was completely edited, [...] at 10/08/2024 1:12 PM EDT US Duplex Lju-Nqu-Fzzrkrk Comp Final Result IMPRESSION: ABDOMEN 1. Cirrhotic [...] from outside facility. Will engage with them daily([phone]. Ask to speak to a tech) about [...] imaging has been performed at [facility]. -CT Head w/o contrast -Imaging [...] Select Supplement: Boost-1 kcal/ml supplement ([facility] only) Code Status: Full Code Signed: [...] I reviewed the documentation by the medical presentation team member and agree as documented. Any additions or clarifications are listed below. Daily plan was discussed with patient at bedside and questions addressed. Patient ID: Julien Gilbert is a 39 y.o. male currently admitted for Acute kidney injury superimposed on CKD ([facility]) Supplemental History/ ROS: No acute events overnight [...] on CKD ([facility]) Active Problems: Spontaneous Bacterial Peritonitis ([facility]): He remains afebrile and vital signs have [...] Decompensated cirrhosis ([facility]): Appreciate hepatology consult. He has started his [...] ascites NADIYA (acute kidney injury) on CKD ([facility]): Hepatorenal syndrome. Appreciate nephrology consult. S/p albumin [...] another specialty or practice, other licensed professional (PT/OT/UNHAIRING MACHINE OPERATOR/RT), or a non-medical community professional: Nephrology, [...] Strictly monitor urine output No Indication for SALES FORECAST ANALYST 3. Not a candidate for terlipressin [...] Ignacio Queen MD Renal Fellow Pager # [phone] Chief Complaint No chief complaint on file. [...] concern for hepatorenal syndrome.` Patient came from [facility], paracentesis was performed [...] PHOS -- < > 3.5 3.4 3.3 KTFF28F 7.1* -- -- -- -- < > = values in this interval not displayed. Lab Results Component Value Date IRON 81 10/08/2024 TIBC SEE COMMENT 10/08/2024 FERRITIN 706.9 (H) 10/08/2024 No results found for: [id number] , FOLATE Lab Results Component Value Date [...] CRUR No results found for: MICROALBUR , [id number] In addition to the above an extensive [...] 3.3 10/10/2024 Lab Results Component Value Date GCSS85I 7.1 (L) 10/08/2024 PLAN Continue IV albumin [...] AM Colten Huertas MD, KISHOR LIN, FNKF water/wastewater project engineer Div. of Nephrology [facility] E-mail: [email or web address] This note was completely edited, [...] pt while pt is at [facility]. * Jodi Ortiz PharmD - 10/10/2024 10:27 AM EDT Clinical Pharmacy Service: Vancomycin Consult Progress Note Patient has been transitioned off of vancomycin therapy per team notes and orders. Pharmacy will sign-off at this time, please do not hesitate to consult again as needs arise. Thank you for involving pharmacy in the care of this patient. Jodi Ortiz PharmD Clinical Rn Documentation, Internal Medicine Preferred contact: [employer] Secure Chat Clinical Iwlsyck-Jh-Izbk Pager: [phone] October 10, 2024 10:27 AM Laboratory Data [...] 10/07/2024 10:50 PM Giardia Cryptosporidium Antigens Final [id number] 10/07/2024 10:50 PM Ova and Parasite Comprehensive w/ Giardia/Crypto Final [id number] Feces 10/06/2024 1:04 AM #2 Blood culture-Peripheral site 2 Preliminary [id number] Peripheral 10/06/2024 1:04 AM #1 Blood culture-Peripheral site 1 Preliminary [id number] Peripheral Pharmacokinetics Lab Results (Last 7 days) Today 0523 Yesterday 0459 10/08 0536 [facility] Rdm 16.4 11.0 16.0 * Gerri Peterson MD - 10/10/2024 10:09 AM EDT [facility] PROGRESS NOTE Name: Julien Gilbert CSN: [id number] Consulted by: Fouzia Rene MD Reason for Consult: Decompensated Cirrhosis History of Present Illness: Julien Gilbert is a 39 y.o. with history of decompensated EtOH cirrhosis (complicated by EV, HRS, ascites, HE), HTN, and CKD who was transferred from [facility] for altered mental status Interval History -DSE [...] nucleated cells, <2000 RBCs 10% Polynuclear, 90% [place] nuc. Per OSH reports, ascitic fluid cultures [...] achieving target HR. -cardiology consult for [facility] on Sunday - Transplant nephrology following [...] from the original note were not included. [place] Clinical Pharmacy Service: Vancomycin Monitoring Consult Julien [...] in sodium chloride 0.9 % 250 mL Udci2Jrn (Completed) 1,500 mg Once 10/09/2024 10/09/2024 Admin Instructions: Contact pharmacy if there is a question/concern of whether vancomycin should begiven based on serum drug levels. Use Rjmu0Bco Adapter - Mix Thoroughly Before Administration Route: Intravenous vancomycin (VANCOCIN) 1,500 mg in sodium chloride 0.9 % 250 mL Selg1Fez 1,500 mg Once 10/10/2024 10/11/2024 Admin Instructions: Contact pharmacy if there is a question/concern of whether vancomycin should begiven based on serum drug levels. Use Tirf2Lkk Adapter - Mix Thoroughly Before Administration Route: [...] in sodium chloride 0.9 % 250 mL Lzuy7Hfa 1,500 mg 166.7 mL/hr 10/08/24 1259 New Bag vancomycin (VANCOCIN) 1,000 mg in sodium chloride 0.9 % 250 mL Dykd9Ciq 1,000 mg 250 mL/hr --Objective Data-- Vitals: [...] 53 53 54 Creatinine 2.85 2.89 3.04 [place] body weight: 86.8 kg (191 lb 5.7 oz) Adjusted ideal body weight: 99.9 kg (220 lb 3.5 oz) Estimated CrCl: ~35-45 mL/min --Cultures-- Microbiology Results Date and Time Order Name Sensitivity Status Organisms Specimen ID Source 10/07/2024 10:50 PM Giardia Cryptosporidium Antigens Final [id number] 10/07/2024 10:50 PM Ova and Parasite Comprehensive w/ Giardia/Crypto Final [id number] Feces 10/06/2024 1:04 AM #2 Blood culture-Peripheral site 2 Preliminary [id number] Peripheral 10/06/2024 1:04 AM #1 Blood culture-Peripheral site 1 Preliminary [id number] Peripheral --Vancomycin Concentrations-- Lab Results (Last 7 [...] for the consult. Jodi Ortiz PharmD Clinical Rn Documentation, Internal Medicine Preferred contact: [facility] Uehjdri-Ed-Qqax Pager: [phone] October 10, 2024 9:13 AM * Eileen Schroeder MD, PhD - 10/10/2024 8:17 AM EDT Department of Internal Medicine Daily Progress Note Chief Complaint / Reason for Follow-Up Julien Gilbert is a 39 y.o. male on hospital day 5. The principal reason for today's follow up visit is Acute kidney injury superimposed on CKD ([facility]). DREW Pt was very conversational today. A&O [...] at 10/08/2024 1:12 PM EDT US Duplex Cel-Ore-Rwlyckp Comp Final Result IMPRESSION: ABDOMEN 1. Cirrhotic [...] from outside facility. Will engage with them daily([phone]. Ask to speak to a tech) about [...] imaging has been performed at [facility]. -CT Head w/o contrast -Imaging [...] Select Supplement: Boost-1 kcal/ml supplement ([facility] only) Code Status: Full Code Signed: [...] I reviewed the documentation by the medical presentation team member and agree as documented. Any additions or clarifications are listed below. Daily plan was discussed with patient at bedside and questions addressed. Patient ID: Julien Gilbert is a 39 y.o. male currently admitted for Acute kidney injury superimposed on CKD ([facility]) Supplemental History/ ROS: No acute events overnight [...] on CKD ([facility]) Active Problems: Spontaneous Bacterial Peritonitis ([facility]): Cultures from OSH were reported as growing [...] Decompensated cirrhosis ([facility]): Appreciate hepatology consult. He has started his [...] another specialty or practice, other licensed professional (PT/OT/UNHAIRING MACHINE OPERATOR/RT), or a non-medical community professional: Nephrology, [...] Strictly monitor urine output No Indication for SALES FORECAST ANALYST Not a candidate for terlipressin per liver due to HE, liver and kidney failure, on midodrine tid. Considering para today, cardiac workup pre txp Liver transplant workup per GI/ Primary team, considering for SLK, seen by renal transplant team Thank you for allowing us to participate in this patient's care. Discussed with Consult Staff. Ignacio Queen MD Renal Fellow Pager # [phone] Chief Complaint No chief complaint on file. [...] concern for hepatorenal syndrome.` Patient came from [facility], paracentesis was performed [...] 9.0 9.3 PHOS -- 3.5 3.5 3.4 RUVH22M 7.1* -- -- -- Lab Results Component Value Date IRON 81 10/08/2024 TIBC SEE COMMENT 10/08/2024 FERRITIN 706.9 (H) 10/08/2024 No results found for: UPTRNBQM46 , FOLATE Lab Results Component Value Date [...] CRUR No results found for: MICROALBUR , PNEB40IME In addition to the above an extensive [...] 3.4 10/09/2024 Lab Results Component Value Date YDCP99R 7.1 (L) 10/08/2024 PLAN Continue IV albumin [...] PM Colten Huertas MD, KISHOR LIN FNKF water/wastewater project engineer Div. of Nephrology [facility] E-mail: [email or web address] This note was completely edited, [...] Peterson MD - 10/09/2024 1:07 PM EDT [facility] HEPATOLOGY PROGRESS NOTE Name: Julien Gilbert CSN: [id number] Consulted by: Fouzia Rene MD Reason for [...] nucleated cells, <2000 RBCs 10% Polynuclear, 90% [place] nuc. Fluid cultures reportedly grew gram + [...] from the original note were not included. [facility]: Vancomycin Monitoring Consult Julien [...] in sodium chloride 0.9 % 250 mL Hqnt0Iam (Completed) 1,000 mg Once 10/08/2024 10/08/2024 Admin Instructions: Contact pharmacy if there is a question/concern of whether vancomycin should begiven based on serum drug levels. Use Nmom4Kfg Adapter - Mix Thoroughly Before Administration Route: Intravenous vancomycin (VANCOCIN) 1,500 mg in sodium chloride 0.9 % 250 mL Evet2Rch 1,500 mg Once 10/09/2024 10/10/2024 Admin Instructions: Contact pharmacy if there is a question/concern of whether vancomycin should begiven based on serum drug levels. Use Bsgz1Ahf Adapter - Mix Thoroughly Before Administration Route: [...] in sodium chloride 0.9 % 250 mL Jbey4Dtk 1,000 mg 250 mL/hr 10/06/24 1413 New [...] 10/07/2024 10:50 PM Giardia Cryptosporidium Antigens Final [id number] 10/07/2024 10:50 PM Ova and Parasite Comprehensive w/ Giardia/Crypto Final [id number] Feces 10/06/2024 1:04 AM #2 Blood culture-Peripheral site 2 Preliminary [id number] Peripheral 10/06/2024 1:04 AM #1 Blood culture-Peripheral site 1 Preliminary [id number] Peripheral --Vancomycin Concentrations-- Lab Results (Last 7 [...] for the consult. Jodi Ortiz PharmD Clinical Rn Documentation, Internal Medicine Preferred contact: [facility] Ofdjqix-Zg-Useg Pager: [phone] October 09, 2024 8:29 AM * Eileen Schroeder MD, PhD - 10/09/2024 8:00 AM EDT Department of Internal Medicine Daily Progress Note Chief Complaint / Reason for Follow-Up Julien Gilbert is a 39 y.o. male on hospital day 4. The principal reason for today's follow up visit is Acute kidney injury superimposed on CKD ([facility]). KARENEON and father at bedside Pt fully [...] at 10/08/2024 1:12 PM EDT US Duplex Ytg-Gvz-Znuemjw Comp Final Result IMPRESSION: ABDOMEN 1. Cirrhotic [...] from outside facility. Will engage with them daily([phone]. Ask to speak to a tech) about [...] imaging has been performed at [facility]. -CT Head w/o contrast -Imaging [...] Select Supplement: Boost-1 kcal/ml supplement ([facility] only) Code Status: Full Code Signed: [...] I reviewed the documentation by the medical presentation team member and agree as documented. Any additions or clarifications are listed below. Daily plan was discussed with patient at bedside and questions addressed. Patient ID: Julien Gilbert is a 39 y.o. male currently admitted for Acute kidney injury superimposed on CKD ([facility]) Supplemental History/ ROS: No acute events [...] on CKD ([facility]) Active Problems: Anemia: S/p 1 unit PRBC [...] another specialty or practice, other licensed professional (PT/OT/UNHAIRING MACHINE OPERATOR/RT), or a non-medical community professional: Nephrology, Hepatology Labs reviewed (1 pt each): CBC, CMP, INR & other daily labs Review of notes from a different specialty or different practice: Nephrology, Anesthesiology hepatology, * Gerri Peterson MD - 10/08/2024 1:40 PM EDT [facility] PROGRESS NOTE Name: Julien Gilbert CSN: [id number] Consulted by: Fouzia Rene MD Reason for [...] nucleated cells, <2000 RBCs 10% Polynuclear, 90% [place] nuc. Fluid cultures reportedly grew gram + [...] Methylmalonic aciduria Plan: At this time, Julien Justin I Yung Jain MD potential candidate for [...] on iHD In the event that Julien Gilbret becomes ineligible for a liver transplant, he will no longer be a candidate for a kidney transplant and his referral will be closed. This has been discussed with Mr. Julien Gilbert. I have discussed this plan with the special services coordinator and the liver transplant team. [...] from the original note were not included. [facility]: Vancomycin Monitoring Consult Julien [...] in sodium chloride 0.9 % 250 mL Abuj0Tls 1,000 mg Once 10/08/2024 10/09/2024 Admin Instructions: Contact pharmacy if there is a question/concern of whether vancomycin should begiven based on serum drug levels. Use Lhla3Qdu Adapter - Mix Thoroughly Before Administration Route: [...] 10/07/2024 10:50 PM Giardia Cryptosporidium Antigens Final [id number] 10/07/2024 10:50 PM Ova and Parasite Comprehensive w/ Giardia/Crypto In process [id number] Feces 10/06/2024 1:04 AM #2 Blood culture-Peripheral site 2 Preliminary [id number] Peripheral 10/06/2024 1:04 AM #1 Blood culture-Peripheral site 1 Preliminary [id number] Peripheral --Vancomycin Concentrations-- Lab Results (Last 7 [...] for the consult. Jodi Ortiz PharmD Clinical Rn Documentation, Internal Medicine Preferred contact: [facility] Xqfjxnh-Rl-Zkbf Pager: [phone] October 08, 2024 9:13 AM * Eileen [...] FREET4 0.74 09/03/2024 Diagnostic Studies US Duplex Ppq-Wua-Cboiufo Comp Final Result IMPRESSION: ABDOMEN 1. Cirrhotic [...] imaging has been performed at [facility]. -CT Head w/o contrast -Imaging [...] Select Supplement: Boost-1 kcal/ml supplement ([facility] only) Code Status: Full Code Signed: [...] I reviewed the documentation by the medical presentation team member and agree as documented. Any [...] Bacterial Peritonitis ([facility]): Cultures from OSH are growing gram- positive [...] tomorrow NADIYA (acute kidney injury) on CKD ([facility]): Appreciate nephrology consult. Likely has hepatorenal syndrome. [...] another specialty or practice, other licensed professional (PT/OT/UNHAIRING MACHINE OPERATOR/RT), or a non-medical community professional: Nephrology, [...] Strictly monitor urine output No Indication for SALES FORECAST ANALYST Not a candidate for terlipressin per liver due to HE, liver ans kidney failure, on midodrine tid Liver transplant workup per GI/ Primary team, considering for SLK Thank you for allowing us to participate in this patient's care. Discussed with Consult Staff. Ignacio Queen MD Renal Fellow Pager # [phone] Chief Complaint No chief complaint on file. [...] with altered mental status and weakness since Terrance. Nephrology consulted for NADIYA on CKD, concern for hepatorenal syndrome.` Patient came from [facility], paracentesis was performed [...] TIBC , FERRITIN No results found for: [id number] , FOLATE Lab Results Component Value Date [...] <15 No results found for: MICROALBUR , UOHQ94ZON In addition to the above an extensive [...] Scr marginal improvement FOCUSED PHYSICAL EXAM Vitals: 10/08/246 BP: Pulse: 99 Resp: Temp: SpO2: 100% [...] 4.0 10/08/2024 Lab Results Component Value Date ERNU50H 7.1 (L) 10/08/2024 PLAN Continue IV albumin [...] 5:36 AM Colten Huertas MD, KISHOR LIN, PETE water/wastewater project engineer Div. of Nephrology [facility] E-mail: [email or web address] This note was completely edited, [...] from the original note were not included. [facility]: Vancomycin Monitoring Consult Julien [...] AM #2 Blood culture-Peripheral site 2 Preliminary [id number] Peripheral 10/06/2024 1:04 AM #1 Blood culture-Peripheral site 1 Preliminary [id number] Peripheral --Vancomycin Concentrations-- Lab Results (Last 7 [...] for the consult. Jodi Ortiz PharmD Clinical Rn Documentation, Internal Medicine Preferred contact: [facility] Gcufotc-Bp-Tjwa Pager: [phone] October 07, 2024 5:01 PM * Yamile [...] Peterson MD - 10/07/2024 11:33 AM EDT [facility] PROGRESS NOTE Name: Julien Gilbert CSN: [id number] Consulted by: Fouzia Rene MD Reason for [...] nucleated cells, <2000 RBCs 10% Polynuclear, 90% [place] nuc. Fluid cultures reportedly grewgram + rods. [...] selection meeting and clearance by social work manager. Please order CT cardiac coronary evaluation, transplant [...] Strictly monitor urine output No Indication for SALES FORECAST ANALYST Liver transplant workup per GI/ Primary team Thank you for allowing us to participate in this patient's care. Discussed with Consult Staff. Ignacio Queen MD Renal Fellow Pager # [phone] Chief Complaint No chief complaint on file. [...] concern for hepatorenal syndrome.` Patient came from [facility], paracentesis was performed [...] TIBC , FERRITIN No results found for: UGNCDBOI43 , FOLATE Lab Results Component Value Date [...] <15 No results found for: MICROALBUR , IFUH04LQT In addition to the above an extensive [...] PHOS 4.2 10/07/2024 No results found for: VQUW78K PLAN Continue IV albumin Monitor renal panel [...] AM Colten Huertas MD, KISHOR LIN, PETE water/wastewater project engineer Div. of Nephrology [facility] E-mail: [email or web address] * Carmen Bernal, OT - [...] at 10/06/2024 2:33 AM EDT US Duplex Ibx-Uve-Tezxeqb Comp (Results Pending) US Abdomen Complete (Results [...] imaging has been performed at [facility]. -CT Head w/o contrast -Imaging [...] Select Supplement: Boost-1 kcal/ml supplement ([facility] only) Code Status: Full Code Signed: [...] I reviewed the documentation by the medical presentation team member and agree as documented. Any [...] Bacterial Peritonitis ([facility]): Cultures from OSH are growing gram- positive [...] kidney injury) ([facility]): Appreciate nephrology consult. Likely has hepatorenal syndrome. [...] needed for pain. Continue to monitor. Thrombocytopenia ([facility]) Renal mass, left CKD (chronic kidney disease) stage 4, GFR 15-29 ml/min ([facility]) Metabolic acidosis with normal anion gap [...] another specialty or practice, other licensed professional (PT/OT/UNHAIRING MACHINE OPERATOR/RT), or a non-medical community professional: Nephrology, Hepatology Labs reviewed (1 pt each): CMP, CBC Test results reviewed (1 pt each): CXR, Head CT Review of notes from a different specialty or different practice: Nephrology, hepatology Use of parenteral controlled substances * Kiet Gardiner, PharmD - 10/06/2024 1:07 PM EDT Images from the original note were not included. [facility]: Vancomycin Monitoring Consult Julien [...] AM #2 Blood culture-Peripheral site 2 Preliminary [id number] Peripheral 10/06/2024 1:04 AM #1 Blood culture-Peripheral site 1 Preliminary [id number] Peripheral --Vancomycin Concentrations-- Lab Results (Last 7 [...] US Retroperitoneal complete (Results Pending) US Duplex Mmu-Ufi-Dknuugv Comp (Results Pending) CT Head WO contrast [...] PM EDT Hospital Medicine Attending Supervision Note [place] // [facility] Julien Gilbert was seen 10/06/24 [...] - 10/05/2024 2:42 PM EDT [facility] Department of Medicine TRANSFER CALL NOTE Location [facility] ED History of Present Illness [...] with plan to transfer to [facility] if needing admission. In the ED, [...] Studies: Na 129 K 4.2 Cl 101 Mouorc64 BUN 62 (up from baseline) Cr 3.6 [...] Quan MD - 10/14/2024 1:10 PM EDT [facility] PRE-SEDATION ASSESSMENT, HISTORY & PHYSICAL Date: [...] Neuro: AOx3 AUC For Cath Indication(s) for Oracle Solutions Architect Visit: Visit Indicators: Suspected CAD 2. Chest Pain Symptom Assessment: Asymptomatic 3. Heart Failure: Yes Class II 4. [facility] Clinical Frailty Scale: Mildly Frail Sedation Plan: Moderate Sedation with Local Anesthesia Antibiotic prophylaxis is not indicated. Mani Quan Interventional Analytics Associate Pager: [phone] [1] Patient Active Problem List Diagnosis Decompensated [...] Peterson MD - 10/10/2024 10:05 AM EDT [facility] PRE-SEDATION ASSESSMENT, HISTORY & PHYSICAL Date: [...] Hypertension Other hyperlipidemia 07/26/2024 Renal cell carcinoma ([facility]) Thrombocytopenia ([facility]) Thyroid disease Difficult intubation Unanswered Problem List[1] [...] Decompensated cirrhosis ([facility]) Acute kidney injury superimposed on CKD ([facility]) Alcohol use disorder Metabolic encephalopathy Hypertension Other hyperlipidemia Thrombocytopenia ([facility]) Renal mass, left Abdominal pain Hypokalemia CKD (chronic kidney disease) stage 4, GFR 15-29 ml/min ([facility]) Metabolic acidosis with normal anion gap and bicarbonate losses GERD (gastroesophageal reflux disease) Hypothyroidism Itching Anemia BRBPR (bright red blood per rectum) SBP (spontaneous bacterial peritonitis) ([facility]) C Diff Diarrhea C. difficile diarrhea Neck [...] No Physical Activity: Unknown (07/14/2024) Received from [facility] Exercise Vital Sign Days of Exercise per Week: Patient unable to answer Minutes of Exercise per Session: Not on file Stress: Patient Unable To Answer (07/14/2024) Received from [facility] [place] of Occupational Health - Occupational Stress Questionnaire Feeling of Stress : Patient unable to answer Social Connections: Patient Unable To Answer (07/14/2024) Received from [facility] Social Connection and Isolation Panel [NHANES] Frequency of Communication with Friends and Family: Patient unable to answer Frequency of Social Gatherings with Friends and Family: Patient unable to answer Attends Scientologist Services: Patient unable to answer Active Member [...] Vanegas MD rifAXIMin 550 mg BID Bisi Hernandez, DO 550 mg at 10/09/24 0802 sodium bicarbonate 1,300 mg TID Bisi Hernandez, DO 1,300 mg at 10/09/24 1305 sodium [...] values in this interval not displayed. Imaging: @[id number]@ I have personally reviewed the imaging and have noted the following: Large recanalized umbilical vein Perihilar varices Replaced right hepatic artery Splenomegaly Spontaneous splenorenal shunt Large volume ascites, No portal vein thrombosis Assessment/Plan: A 39 y.o. male with ETOH decompensated by ascites, hepatic encephalopathy,bleeding esophageal Varices. Use and allocation of SCD, CELLARS SUPERVISOR, DCD and LDLT allografts discussed in detail. [...] surgery (5%). I also explained the terminal gauger supervisor risks of transplantation and immunosuppression including viral infection and cancer both solid organand lymphoma. Kemar Sahni MD, Fellow, Multiorgan Abdominal Transplant Surgery. [facility]. 10/09/2024 3:16 PM [1] Allergies Allergen [...] Ortiz MD - 10/06/2024 12:00 AM EDT [facility] Internal Medicine - History and Physical [...] taken to Radiology overnight for imaging upload. [facility] performed a bedside paracentesis and sent studies for SBP analysis. [facility] to see if labs have resulted. Review of Systems 14 pt ROS conducted and negative aside from that mentioned in above HPI Past Medical and Social History Lives in [place], [place] at bedside Notes that the patient [...] labs pending on admission to [facility] Assessment & Plan Julien Gilbert is [...] AM EDT Hospital Medicine Attending Supervision Note [place] // [facility] Julien Gilbert was seen 10/06/24 [...] confusion and lethargy. HE was seen at [facility] ED were CT head unremarkable and RUQ with gallstones, abdominal ascites diagnostic para done and started on empiric CTX. Labs remarkable at OSH for K 4.2 Cl 101 Pjpxok71 BUN 62 (up from baseline) Cr 3.6 [...] another specialty or practice, other licensed professional (PT/OT/UNHAIRING MACHINE OPERATOR/RT), or a non-medical community professional: ed [...] ANGIE BLANCHARD MD Attending Physician Division of [facility] Medicine Department of Internal Medicine Pager ID: [phone] 6:04 AM, 10/06/2024 documented in this encounter [...] can be located in EPIC Procedures (or [facility] Imaging) Tabs. Please call with any questions. BAKARI WAHL CNP Vascular & Interventional Radiology 10/10/2024,1:55 PM [facility]: [phone] * Lino Soto MD - 10/10/2024 12:06 PM EDT EGD Brief Op Note Julien Gilbert 10/05/2024 - 10/10/2024 Pre-op Diagnosis: Alcoholic cirrhosis of liver with ascites (CMS-HCC) [K70.31] Post-op Diagnosis: Portal gastropathy, Medium size, non-bleeding esophageal varices Procedure(s): EGD Surgeon(s): Lino Soto MD Anesthesia: MAC (Monitor Anesthesia Care) Staff: Fellow: Gerri Peterson MD Endoscopy Nurse: Kandice Castaneda RN Boat Joiner: Diana Kemp Estimated Blood Loss: Minimal Specimens: Drains: There were no complications unless listed below. LINO SOTO MD Date: 10/10/2024 Time: 12:18 PM * Lino Soto MD - 10/10/2024 11:48 AM EDT [id number] Procedure Date: 10/10/2024 11:48 AM Patient Name: Julien Gilbert Date of : 1985 Admit Type: Inpatient Age: 39 Gender: Male Note Status: Finalized Attending MD: Lino Soto MD, [id number] Procedure: Upper GI endoscopy Indications: Gastroesopahgeal variceal [...] verified by the physician, the nurse, the roaster helper and the wind technician in the pre-procedure area in the [...] to hypotension Procedure Code(s): --- Professional --- 76985, GC, Esophagogastroduodenoscopy, flexible, transoral; diagnostic, including collection of specimen(s) by brushing or washing, when performed (separate procedure) Diagnosis Code(s): --- Professional --- I85.00, Esophageal 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 All rights reserved. The codes documented in this report are preliminary and upon transit driver review may be revised to meet current compliance requirements. Attending Participation: I was present and participated during the entire procedure, including non-albarado portions. Lino Soto MD Lion Soto MD 10/10/2024 12:34:37 PM This report has been signed electronically.MD Vernon Appiah MD Gerri Peterson MD 10/10/2024 12:29:47 PM Total Procedure Duration Time 0 hours 7 minutes 12 seconds Scope In: 12:10:16 PM Scope Out: 12:17:[address] [place] [address], [facility] * Gill Le RN - 10/09/2024 [...] time. 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 Describes significant anxiety that occasionally limits his ability to drive, and stated he has to side puller occasionally to collect himself, thought denied [...] sleep. Has not been on [facility] since stopping the cymbalta. Reports [...] mother is and his father resides in [place]. Patient earned a graduate degree and never served in the . 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 He was raised Lutheran and denied current engagement in any community [...] or other abnormalities Cognition/Memory: short term and residential memory intact. Attention and concentration: is not [...] from the original note were not included. [facility] General Cardiology Consult Note Referring Physician: [...] at baseline or with provocation, shows no bnclw-px-evhd atrial level shunt. - Pulmonary arteries: Systolic [...] 10/13/24, please keep NPO on 10/12/24 at [place] Risks and benefits of new therapies added and new invasive and non-invasive procedures/diagnostic testing planned discussed with and understood by the patient/family who agree with the above plan. Plan discussed with the attending physician Dr. Blanco. Recommendations are preliminary until this note is co- signed by the attending. Follow up appointments with Cardiology can be scheduled by calling [phone]. Thank you for the opportunity to participate in this patient's care. Please call orpage with any questions. Leonor Garcia MD Analytics Associate I have personally seen, examined, reviewed all [...] 0659 10/11/24 0700 - 10/12/24 0659 Shift [id number] 8302-1130 24 Hour Total 8203-3126 5521-5018 9992-0195 24 Hour Total INTAKE P.O. 4036 650 2217 P.O. 5344 891 5689 Boost (mL) - [facility] only 240 240 I.V.(mL/kg) 450(3.8) Volume [...] & Interventional Radiology 10/10/2024,1:54 PM [facility]: [phone]([id number]) [1] Social History Tobacco Use Smoking Status [...] EDTAssociated Order(s): IP CONSULT TO INFECTIOUS DISEASES [facility] DEPARTMENT OF INFECTIOUS DISEASE INITIAL NOTE Referring Physician: Fouzia Rene MD Consult Attending: Daria Garcia Patient: Julien Gilbert CSN: [id number] Reason for Consult: CC: Abx management History [...] HE. He was born and raised in [facility] . No travel to the [facility]. 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 [...] No Physical Activity: Unknown (07/14/2024) Received from [facility] Exercise Vital Sign Days of Exercise per Week: Patient unable to answer Minutes of Exercise per Session: Not on file Stress: Patient Unable To Answer (07/14/2024) Received from [facility] [place] of Occupational Health - Occupational Stress Questionnaire Feeling of Stress : Patient unable to answer Social Connections: Patient Unable To Answer (07/14/2024) Received from [facility] Social Connection and Isolation Panel [NHANES] Frequency of Communication with Friends and Family: Patient unable to answer Frequency of Social Gatherings with Friends and Family: Patient unable to answer Attends Scientologist Services: Patient unable to answer Active Member [...] day. Qty: 60 tablet, Refills: 0 Comments: [facility] [place] [address] sodium bicarbonate 650 MG tablet Take 2 [...] Aphasia [R47.01] 10/06/2024 SBP (spontaneous bacterial peritonitis) ([facility]) [K65.2] 09/08/2024 Metabolic acidosis with normal anion gap and bicarbonate losses [E87.20] 09/03/2024 CKD (chronic kidney disease) stage 4, GFR 15-29 ml/min ([facility]) [N18.4] 09/03/2024 GERD (gastroesophageal reflux [...] Signed: Daria Garcia MD 10/08/2024, 9:46 AM [phone] [1] Allergies Allergen Reactions Adhesive Itching and [...] No Physical Activity: Unknown (07/14/2024) Received from [facility] Exercise Vital Sign Days of Exercise per Week: Patient unable to answer Minutes of Exercise per Session: Not on file Stress: Patient Unable To Answer (07/14/2024) Received from [employer] [place] [facility]ational [facility] - Occupational Stress Questionnaire Feeling of Stress : Patient unable to answer Social Connections: Patient Unable To Answer (07/14/2024) Received from [facility] Social Connection and Isolation Panel [NHANES] Frequency of Communication with Friends and Family: Patient unable to answer Frequency of Social Gatherings with Friends and Family: Patient unable to answer Attends Scientologist Services: Patient unable to answer Active Member [...] is no recent study available for direct cdcm-yh-frbd comparison. Left Ventricle The left ventricle is [...] pressures < 35 mmHgon resting echo from [facility] 07/15/24. No ischemic workup noted. ECG from [...] with risk (OLT/OKT) Los Broussard MD, [facility] Department of Anesthesiology [1] Allergies Allergen Reactions Adhesive Itching and Rash Tegaderm adhesive on Ivs, pt states its tolerable Duloxetine Other (See Comments) Became Manic [2] Patient Active Problem List Diagnosis Decompensated cirrhosis ([facility]) NADIYA (acute kidney injury) ([facility]) Alcohol use disorder Metabolic encephalopathy Hypertension Other hyperlipidemia Thrombocytopenia ([facility]) Renal mass, left Abdominal pain Hypokalemia CKD (chronic kidney disease) stage 4, GFR 15-29 ml/min ([facility]) Metabolic acidosis with normal anion gap and bicarbonate losses GERD (gastroesophageal reflux disease) Hypothyroidism Itching Anemia BRBPR (bright red blood per rectum) SBP (spontaneous bacterial peritonitis) ([facility]) C Diff Diarrhea C. difficile [...] MD PCP: Enedina Mcguire NP Home Pharmacy: [facility] [address] [place] [address] [facility] [address] [facility] [address] Issues related to obtaining medications: Payor Information Medical Insurance Coverage: Payor: [facility] / Plan: [facility] / Product Type: *No Producttype* / Secondary Payor: Functional Assessment Functional Assessment Assessment Information Obtained From:: Patient Current Mental Status: Awake, Oriented to Person, Oriented to Place, Oriented to Time, Oriented to Situation Mental Health History: Yes Behavioral Health Agency Involvement: Yes Behavioral Health Agency Name: Other (Comment) (states he used [facility] for mental health help) Do [...] Was any abuse reported by patient?: No [place] Status & Connection to [facility] Services Status & Connection to [place] Services Are you a ?: No Support [...] confusion and lethargy. HE was seen at [facility] ED were CT head unremarkable and RUQ with gallstones, abdominal ascites diagnostic para done and started on empiric CTX. BSN RN Global Compensation Analyst Neisha Fuentes met with patient at bedside [...] health concerns or diagnoses. He has used [facility] to aide with his mental health. Patient denies current alcohol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 (10/14/2024 2:53 AM EDT) Protime 23.8(H) 12.1 - 15.1 seconds 10/14/2024 4:34 AM EDT [facility] INR 2.1(H) 0.9 - 1.1 10/14/2024 4:34 AM EDT [facility] Comment: RECOMMENDED THERAPEUTIC RANGES USING INR : Stable oral anticoagulant therapy: 2.0 - 3.0 Mechanical prosthetic heart valve: 2.5 - 3.5 Recurrent acute myocardial infarction: 2.5 - 3.5 Plasma 10/14/2024 2:53 AM EDT 10/14/2024 4:16 AM EDT Eileen Schroeder MD, PhD LAB BLOOD ORDERABLES Final Result [facility] [address] * (ABNORMAL) Hepatic Function Panel (10/14/2024 2:53 AM EDT) Total Bilirubin 7.2(H) 0.0 - 1.5 mg/dL 10/14/2024 4:45 AM EDT [facility] Bilirubin, Direct 3.86(H) 0.00 - 0.40 mg/dL 10/14/2024 4:45 AM EDT [facility] AST 41(H) 13 - 39 U/L 10/14/2024 4:45 AM EDT [facility] ALT 22 7 - 52 U/L 10/14/2024 4:45 AM EDT [facility] Alkaline Phosphatase 119 36 - 125 U/L 10/14/2024 4:45 AM EDT [facility] Total Protein 4.6(L) 6.4 - 8.9 g/dL 10/14/2024 4:45 AM EDT [facility] Albumin 3.3(L) 3.5 - 5.7 g/dL 10/14/2024 4:45 AM EDT [facility] Bilirubin, Indirect 3.34(H) 0.00 - 1.10 mg/dL 10/14/2024 4:45 AM EDT [facility] Plasma 10/14/2024 2:53 AM EDT 10/14/2024 4:16 AM EDT Eileen Schroeder MD, PhD LAB BLOOD ORDERABLES Final Result [facility] [address] [facility] [place] [address], [facility] * Magnesium (10/14/2024 2:53 AM EDT) Magnesium 1.9 1.5 - 2.5 mg/dL 10/14/2024 4:45 AM EDT [facility] Plasma 10/14/2024 2:53 AM EDT 10/14/2024 4:16 AM EDT us Eileen Schroeder MD, PhD LAB BLOOD ORDERABLES Final Result [facility] [address] [place] [address], [facility] * (ABNORMAL) Renal Function Panel w/EGFR (10/14/2024 2:53 AM EDT) Sodium 136 133 - 146 mmol/L 10/14/2024 4:45 AM EDT [facility] Potassium 3.5 3.5 - 5.3 mmol/L 10/14/2024 4:45 AM EDT [facility] Chloride 107 98 - 110 mmol/L 10/14/2024 4:45 AM EDT [facility] CO2 16(L) 21 - 33 mmol/L 10/14/2024 4:45 AM EDT [facility] Anion Gap 13 3 - 16 mmol/L 10/14/2024 4:45 AM EDT [facility] BUN 55(H) 7 - 25 mg/dL 10/14/2024 4:45 AM EDT [facility] Creatinine 3.01(H) 0.60 - 1.30 mg/dL 10/14/2024 4:45 AM EDT [facility] Glucose 95 70 - 100 mg/dL 10/14/2024 4:45 AM EDT [facility] Calcium 8.5(L) 8.6 - 10.3 mg/dL 10/14/2024 4:45 AM EDT [facility] Phosphorus 4.4 2.1 - 4.7 mg/dL 10/14/2024 4:45 AM EDT [facility] Albumin 3.3(L) 3.5 - 5.7 g/dL 10/14/2024 4:45 AM EDT [facility] Osmolality, Calculated 297 278 - 305 mOsm/kg 10/14/2024 4:45 AM EDT [facility] EGFR 26 10/14/2024 4:45 AM EDT [facility] Comment:As of 2021, the estimated [...] MD, PhD LAB BLOOD ORDERABLES Final Result [facility] [address] * (ABNORMAL) CBC (10/14/2024 2:53 AM EDT) WBC 5.5 3.8 - 10.8 10E3/uL 10/14/2024 5:00 AM EDT [facility] RBC 2.09(L) 4.20 - 5.80 10E6/uL 10/14/2024 5:00 AM EDT [facility] Hemoglobin 7.6(L) 13.2 - 17.1 g/dL 10/14/2024 5:00 AM EDT [facility] Hematocrit 21.3(L) 38.5 - 50.0 % 10/14/2024 5:00 AM EDT [facility] MCV 101.7(H) 80.0 - 100.0 fL 10/14/2024 5:00 AM EDT [facility] MCH 36.3(H) 27.0 - 33.0 pg 10/14/2024 5:00 AM EDT [facility] MCHC 35.7 32.0 - 36.0 g/dL 10/14/2024 5:00 AM EDT [facility] RDW 17.6(H) 11.0 - 15.0 % 10/14/2024 5:00 AM EDT [facility] Platelets 35(L) 140 - 400 10E3/uL 10/14/2024 5:00 AM EDT [facility] Comment: Specimen checked for clots. None detected. Slide Reviewed for PLT Clumps. None Seen. MPV 8.5 7.5 - 11.5 fL 10/14/2024 5:00 AM EDT [facility] Whole Blood 10/14/2024 2:53 AM EDT 10/14/2024 4:17 AM EDT us Eileen Schroeder MD, PhD LAB BLOOD ORDERABLES Final Result [facility] [address] [place] [address], [facility] * Cardiac Cath Documents [...] GADOBUTROL 1 MMOL/ML INTRAVENOUS SYRINGE ([facility]) administered intravenously COMPARISON: CT 09/03/2024. Ultrasound [...] GADOBUTROL 1 MMOL/ML INTRAVENOUS SYRINGE ([facility])administered intravenously COMPARISON: CT 09/03/2024. Ultrasound 10/07/2024. [...] - 15.1 seconds 10/13/2024 6:12 AM EDT [facility] INR 2.1(H) 0.9 - 1.1 10/13/2024 6:12 AM EDT [facility] Comment: RECOMMENDED THERAPEUTIC RANGES USING INR : Stable oral anticoagulant therapy: 2.0 - 3.0 Mechanical prosthetic heart valve: 2.5 - 3.5 Recurrent acute myocardial infarction: 2.5 - 3.5 Plasma 10/13/2024 5:35 AM EDT 10/13/2024 5:52 AM EDT Eileen Schroeder MD, PhD LAB BLOOD ORDERABLES Final Result [facility] [address] [place] [address], [facility] * (ABNORMAL) Hepatic Function Panel (10/13/2024 5:35 AM EDT) Total Bilirubin 6.5(H) 0.0 - 1.5 mg/dL 10/13/2024 6:30 AM EDT [facility] Bilirubin, Direct 3.53(H) 0.00 - 0.40 mg/dL 10/13/2024 6:30 AM EDT [facility] AST 42(H) 13 - 39 U/L 10/13/2024 6:30 AM EDT [facility] ALT 19 7 - 52 U/L 10/13/2024 6:30 AM EDT [facility] Alkaline Phosphatase 108 36 - 125 U/L 10/13/2024 6:30 AM EDT [facility] Total Protein 4.4(L) 6.4 - 8.9 g/dL 10/13/2024 6:30 AM EDT [facility] Albumin 3.1(L) 3.5 - 5.7 g/dL 10/13/2024 6:30 AM EDT [facility] Bilirubin, Indirect 2.97(H) 0.00 - 1.10 mg/dL 10/13/2024 6:30 AM EDT [facility] Plasma 10/13/2024 5:35 AM EDT 10/13/2024 5:52 AM EDT Eileen Schroeder MD, PhD LAB BLOOD ORDERABLES Final Result [facility] [address] [facility] [place] [address], [facility] * Magnesium (10/13/2024 5:35 AM EDT) Magnesium 2.0 1.5 - 2.5 mg/dL 10/13/2024 6:30 AM EDT [facility] Plasma 10/13/2024 5:35 AM EDT 10/13/2024 5:52 AM EDT us Eileen Schroeder MD, PhD LAB BLOOD ORDERABLES Final Result [facility] [address] [facility] ([facility] [address] * (ABNORMAL) Renal Function Panel w/EGFR (10/13/2024 5:35 AM EDT) Sodium 134 133 - 146 mmol/L 10/13/2024 6:30 AM EDT [facility] Potassium 3.7 3.5 - 5.3 mmol/L 10/13/2024 6:30 AM EDT [facility] Chloride 109 98 - 110 mmol/L 10/13/2024 6:30 AM EDT [facility] CO2 14(L) 21 - 33 mmol/L 10/13/2024 6:30 AM EDT [facility] Anion Gap 11 3 - 16 mmol/L 10/13/2024 6:30 AM EDT [facility] BUN 54(H) 7 - 25 mg/dL 10/13/2024 6:30 AM EDT [facility] Creatinine 2.99(H) 0.60 - 1.30 mg/dL 10/13/2024 6:30 AM EDT [facility] Glucose 116(H) 70 - 100 mg/dL 10/13/2024 6:30 AM EDT [facility] Calcium 8.3(L) 8.6 - 10.3 mg/dL 10/13/2024 6:30 AM EDT [facility] Phosphorus 4.5 2.1 - 4.7 mg/dL 10/13/2024 6:30 AM EDT [facility] Albumin 3.1(L) 3.5 - 5.7 g/dL 10/13/2024 6:30 AM EDT [facility] Osmolality, Calculated 294 278 - 305 mOsm/kg 10/13/2024 6:30 AM EDT [facility] EGFR 26 10/13/2024 6:30 AM EDT [facility] Comment:As of 2021, the estimated [...] MD, PhD LAB BLOOD ORDERABLES Final Result [facility] [address] [place] [address], [facility] * (ABNORMAL) CBC (10/13/2024 5:35 AM EDT) WBC 4.7 3.8 - 10.8 10E3/uL 10/13/2024 6:22 AM EDT [facility] RBC 2.06(L) 4.20 - 5.80 10E6/uL 10/13/2024 6:22 AM EDT [facility] Hemoglobin 7.4(L) 13.2 - 17.1 g/dL 10/13/2024 6:22 AM EDT [facility] Hematocrit 21.7(L) 38.5 - 50.0 % 10/13/2024 6:22 AM EDT [facility] MCV 105.4(H) 80.0 - 100.0 fL 10/13/2024 6:22 AM EDT [facility] MCH 35.9(H) 27.0 - 33.0 pg 10/13/2024 6:22 AM EDT [facility] MCHC 34.0 32.0 - 36.0 g/dL 10/13/2024 6:22 AM EDT [facility] RDW 18.5(H) 11.0 - 15.0 % 10/13/2024 6:22 AM EDT [facility] Platelets 35(L) 140 - 400 10E3/uL 10/13/2024 6:22 AM EDT [facility] Comment: CNV Specimen checked for clots. None detected. MPV 8.4 7.5 - 11.5 fL 10/13/2024 6:22 AM EDT [facility] Whole Blood 10/13/2024 5:35 AM EDT 10/13/2024 5:53 AM EDT us Eileen Schroeder MD, PhD LAB BLOOD ORDERABLES Final Result [facility] [address] [facility]. [address] * (ABNORMAL) Ammonia (10/13/2024 5:35 AM EDT) Ammonia 203(HH) 27 - 90 ug/dL 10/13/2024 7:16 AM EDT [facility] Comment: HEMOLYSIS EVIDENT. RESULTS MAY BE INFLUENCED. Critical Result [id number] Called to and read back by: KEY MELO RN at: 10/13/2024 07:15:55 by:NISREEN Plasma 10/13/2024 5:35 AM EDT 10/13/2024 6:19 AM EDT us Ellis Mays DO LAB BLOOD ORDERABLES Final Resul t [facility] [address] [facility] [address] * CARISA Rhythm Strip - Scan (10/12/2024 10:30 PM EDT) us Scanning [facility] SCAN DOCS - NO RESULTS Final Res ult * (ABNORMAL) Protime-INR (10/12/2024 5:44 AM EDT) Protime 25.7(H) 12.1 - 15.1 seconds 10/12/2024 6:12 AM EDT [facility] INR 2.3(H) 0.9 - 1.1 10/12/2024 6:12 AM EDT [facility] Comment: RECOMMENDED THERAPEUTIC RANGES USING INR : Stable oral anticoagulant therapy: 2.0 - 3.0 Mechanical prosthetic heart valve: 2.5 - 3.5 Recurrent acute myocardial infarction: 2.5 - 3.5 Plasma 10/12/2024 5:44 AM EDT 10/12/2024 5:58 AM EDT Eileen Schroeder MD, PhD LAB BLOOD ORDERABLES Final Result [facility] [address] * (ABNORMAL) Hepatic Function Panel (10/12/2024 5:44 AM EDT) Total Bilirubin 6.5(H) 0.0 - 1.5 mg/dL 10/12/2024 6:29 AM EDT [facility] Bilirubin, Direct 3.64(H) 0.00 - 0.40 mg/dL 10/12/2024 6:29 AM EDT [facility] AST 40(H) 13 - 39 U/L 10/12/2024 6:29 AM EDT [facility] ALT 19 7 - 52 U/L 10/12/2024 6:29 AM EDT [facility] Alkaline Phosphatase 99 36 - 125 U/L 10/12/2024 6:29 AM EDT [facility] Total Protein 4.2(L) 6.4 - 8.9 g/dL 10/12/2024 6:29 AM EDT [facility] Albumin 3.1(L) 3.5 - 5.7 g/dL 10/12/2024 6:29 AM EDT [facility] Bilirubin, Indirect 2.86(H) 0.00 - 1.10 mg/dL 10/12/2024 6:29 AM EDT [facility] Plasma 10/12/2024 5:44 AM EDT 10/12/2024 5:58 AM EDT Eileen Schroeder MD, PhD LAB BLOOD ORDERABLES Final Result Performing Organization Address [facility] Co de Phone Number [facility] [address] [facility]. [address] * Magnesium (10/12/2024 5:44 AM EDT) Magnesium 1.9 1.5 - 2.5 mg/dL 10/12/2024 6:29 AM EDT [facility] Plasma 10/12/2024 5:44 AM EDT 10/12/2024 5:58 AM EDT Eileen Schroeder MD, PhD LAB BLOOD ORDERABLES Final Result Performing Organization Address [facility] de Phone Number [facility] [address] * (ABNORMAL) Renal Function Panel w/EGFR (10/12/2024 5:44 AM EDT) Sodium 135 133 - 146 mmol/L 10/12/2024 6:29 AM EDT [facility] Potassium 3.7 3.5 - 5.3 mmol/L 10/12/2024 6:29 AM EDT [facility] Chloride 109 98 - 110 mmol/L 10/12/2024 6:29 AM EDT [facility] CO2 17(L) 21 - 33 mmol/L 10/12/2024 6:29 AM EDT [facility] Anion Gap 9 3 - 16 mmol/L 10/12/2024 6:29 AM EDT [facility] BUN 52(H) 7 - 25 mg/dL 10/12/2024 6:29 AM EDT [facility] Creatinine 2.94(H) 0.60 - 1.30 mg/dL 10/12/2024 6:29 AM EDT [facility] Glucose 121(H) 70 - 100 mg/dL 10/12/2024 6:29 AM EDT [facility] Calcium 8.5(L) 8.6 - 10.3 mg/dL 10/12/2024 6:29 AM EDT [facility] Phosphorus 4.6 2.1 - 4.7 mg/dL 10/12/2024 6:29 AM EDT [facility] Albumin 3.1(L) 3.5 - 5.7 g/dL 10/12/2024 6:29 AM EDT [facility] Osmolality, Calculated 295 278 - 305 mOsm/kg 10/12/2024 6:29 AM EDT [facility] EGFR 27 10/12/2024 6:29 AM EDT [facility] Comment:As of 2021, the estimated [...] MD, PhD LAB BLOOD ORDERABLES Final Result [facility] [address] [place] [address], [facility] * (ABNORMAL) CBC (10/12/2024 5:44 AM EDT) WBC 3.3(L) 3.8 - 10.8 10E3/uL 10/12/2024 7:06 AM EDT [facility] RBC 1.95(L) 4.20 - 5.80 10E6/uL 10/12/2024 7:06 AM EDT [facility] Hemoglobin 7.2(L) 13.2 - 17.1 g/dL 10/12/2024 7:06 AM EDT [facility] Hematocrit 19.7(L) 38.5 - 50.0 % 10/12/2024 7:06 AM EDT [facility] MCV 101.2(H) 80.0 - 100.0 fL 10/12/2024 7:06 AM EDT [facility] MCH 37.0(H) 27.0 - 33.0 pg 10/12/2024 7:06 AM EDT [facility] MCHC 36.5(H) 32.0 - 36.0 g/dL 10/12/2024 7:06 AM EDT [facility] RDW 17.6(H) 11.0 - 15.0 % 10/12/2024 7:06 AM EDT [facility] Platelets 30(L) 140 - 400 10E3/uL 10/12/2024 7:06 AM EDT [facility] Comment: Specimen checked for clots. None detected. Slide Reviewed for PLT Clumps. None Seen. Platelet Estimate Decreased 10/12/2024 7:06 AM EDT [facility] MPV 8.3 7.5 - 11.5 fL 10/12/2024 7:06 AM EDT [facility] Whole Blood 10/12/2024 5:44 AM EDT 10/12/2024 5:58 AM EDT Narrative [facility] - 10/12/2024 7:06 AM EDT Peripheral blood smear was scanned per review criteria approved by the laboratory medical voucher clerk. us Eileen Schroeder MD, PhD LAB BLOOD ORDERABLES Final Result [facility] [address] [facility] [place] [address], [facility] * CARISA Rhythm Strip - Scan (10/11/2024 10:04 PM EDT) [facility] SC[facility] DOCS - NO RESULTS Final Res [...] BLOOD ORDERABLES Final Result [facility] [address] * (ABNORMAL) Hepatic Function Panel (10/11/2024 3:02 AM EDT) Total Bilirubin 7.3(H) 0.0 - 1.5 mg/dL 10/11/2024 3:38 AM EDT [facility] Bilirubin, Direct 3.85(H) 0.00 - 0.40 mg/dL 10/11/2024 3:38 AM EDT [facility] AST 39 13 - 39 U/L 10/11/2024 3:38 AM EDT [facility] ALT 20 7 - 52 U/L 10/11/2024 3:38 AM EDT [facility] Alkaline Phosphatase 88 36 - 125 U/L 10/11/2024 3:38 AM EDT [facility] Total Protein 4.5(L) 6.4 - 8.9 g/dL 10/11/2024 3:38 AM EDT [facility] Albumin 3.3(L) 3.5 - 5.7 g/dL 10/11/2024 3:38 AM EDT [facility] Bilirubin, Indirect 3.45(H) 0.00 - 1.10 mg/dL 10/11/2024 3:38 AM EDT [facility] Plasma 10/11/2024 3:02 AM EDT 10/11/2024 3:08 AM EDT Eileen Schroeder MD, PhD LAB BLOOD ORDERABLES Final Result Performing Organization Address [facility] Co de Phone Number [facility] [address] * Magnesium (10/11/2024 3:02 AM EDT) Magnesium 2.0 1.5 - 2.5 mg/dL 10/11/2024 3:38 AM EDT [facility] Plasma 10/11/2024 3:02 AM EDT 10/11/2024 3:08 AM EDT Eileen Schroeder MD, PhD LAB BLOOD ORDERABLES Final Result Performing Organization Address [facility] Co de Phone Number [facility] [address] * (ABNORMAL) Renal Function Panel w/EGFR (10/11/2024 3:02 AM EDT) Sodium 134 133 - 146 mmol/L 10/11/2024 3:38 AM EDT [facility] Potassium 3.6 3.5 - 5.3 mmol/L 10/11/2024 3:38 AM EDT [facility] Chloride 108 98 - 110 mmol/L 10/11/2024 3:38 AM EDT [facility] CO2 16(L) 21 - 33 mmol/L 10/11/2024 3:38 AM EDT [facility] Anion Gap 10 3 - 16 mmol/L 10/11/2024 3:38 AM EDT [facility] BUN 49(H) 7 - 25 mg/dL 10/11/2024 3:38 AM EDT [facility] Creatinine 2.77(H) 0.60 - 1.30 mg/dL 10/11/2024 3:38 AM EDT [facility] Glucose 112(H) 70 - 100 mg/dL 10/11/2024 3:38 AM EDT [facility] Calcium 8.9 8.6 - 10.3 mg/dL 10/11/2024 3:38 AM EDT [facility] Phosphorus 3.5 2.1 - 4.7 mg/dL 10/11/2024 3:38 AM EDT [facility] Albumin 3.3(L) 3.5 - 5.7 g/dL 10/11/2024 3:38 AM EDT [facility] Osmolality, Calculated 292 278 - 305 mOsm/kg 10/11/2024 3:38 AM EDT [facility] EGFR 29 10/11/2024 3:38 AM EDT [facility] Comment:As of 2021, the estimated [...] MD, PhD LAB BLOOD ORDERABLES Final Result [facility] [address] [place], [place] [address] * (ABNORMAL) CBC (10/11/2024 3:02 AM EDT) WBC 4.0 3.8 - 10.8 10E3/uL 10/11/2024 3:55 AM EDT [facility] RBC 2.11(L) 4.20 - 5.80 10E6/uL 10/11/2024 3:55 AM EDT [facility] Hemoglobin 7.7(L) 13.2 - 17.1 g/dL 10/11/2024 3:55 AM EDT [facility] Hematocrit 21.2(L) 38.5 - 50.0 % 10/11/2024 3:55 AM EDT [facility] MCV 100.5(H) 80.0 - 100.0 fL 10/11/2024 3:55 AM EDT [facility] MCH 36.4(H) 27.0 - 33.0 pg 10/11/2024 3:55 AM EDT [facility] MCHC 36.2(H) 32.0 - 36.0 g/dL 10/11/2024 3:55 AM EDT [facility] RDW 17.9(H) 11.0 - 15.0 % 10/11/2024 3:55 AM EDT [facility] Platelets 32(L) 140 - 400 10E3/uL 10/11/2024 3:55 AM EDT [facility] Comment: Specimen checked for clots. None detected. Slide Reviewed for PLT Clumps. None Seen. Platelet Estimate Decreased 10/11/2024 3:55 AM EDT [facility] MPV 8.1 7.5 - 11.5 fL 10/11/2024 3:55 AM EDT [facility] Whole Blood 10/11/2024 3:02 AM EDT 10/11/2024 3:08 AM EDT Narrative [facility] - 10/11/2024 3:55 AM EDT Peripheral blood smear was scanned per review criteria approved by the laboratory medical voucher clerk. us Eileen Schroeder MD, PhD LAB BLOOD ORDERABLES Final Result [facility] [address] [facility] [place] [address], [facility] * Vancomycin, random (10/11/2024 3:02 AM EDT) Vancomycin Random 13.4 ug/mL 10/11/2024 3:37 AM EDT [facility] Comment:Reference range not established for this test. Plasma 10/11/2024 3:02 AM EDT 10/11/2024 3:08 AM EDT us Jodi Ortiz PharmD LAB BLOOD ORDERABLES Final Result Performing Organization Address City/State/[facility] Co de Phone Number [facility] [address] [place] [address], [facility] * IR Paracentesis incl [...] diagnostic and therapeutic paracentesis. Bakari Wahl CNP, Teamsite Developer Procedure and Findings: The procedure was [...] for diagnostic andtherapeutic paracentesis. Bakari Wahl CNP, Teamsite Developer Procedure and Findings: The procedure was [...] per primary team. Report Verified by: Bakari Wahl, CENTRIFUGAL SPINNER at 10/10/2024 3:31 PM EDT us Chari Vanegas MD IMG IR ORDERABLES Final Result * Stress Testing Lab - scan (10/10/2024 3:08 PM EDT) us Scanning [facility] SCAN DOCS - NO RESULTS Final Res ult * (ABNORMAL) Body fluid cell count (10/10/2024 1:51 PM EDT) Color, Fluid Yellow(A) Colorless, Pale Yellow 10/10/2024 5:29 PM EDT [facility] Clarity, Fluid Clear 10/10/2024 5:29 PM EDT [facility] Neutrophil %, Fluid 9 % 10/10/2024 5:29 PM EDT [facility] Lymphocytes %, Fluid 13 % 10/10/2024 5:29 PM EDT [facility] Mesothelial %, Fluid 6 % 10/10/2024 5:29 PM EDT [facility] Macrophage %, Fluid 72 % 10/10/2024 5:29 PM EDT [facility] RBC, Fluid 2,662 /uL 10/10/2024 4:41 PM EDT [facility] Total Nucleated Cells, Fluid 89 /uL 10/10/2024 4:41 PM EDT [facility] Comment:Total Nucleated Cell s represent WBCs and other nucleated cells in the fluid such as lining cells. Ascitic Fluid ABDOMEN / Unknown 1:51 PM EDT 10/10/2024 3:56 PM EDT us Gerri Peterson MD BODY FLUIDS AND STOOLS ORDERABL ES Final Result [facility] [address] [place] [address], [facility] * Body Fluid Culture plus Stain (10/10/2024 1:51 PM EDT) Gram Stain Result Cytospin Results: [facility] Gram Stain Result Polymorphonuclear Leukocytes Seen; [facility] Gram Stain Result No Organisms Seen; [facility] Culture Result No Growth After 5 Days [facility] Fluid ABDOMEN / Unknown 10/10/2024 1:51 PM EDT 10/10/2024 3:56 PM EDT us Gerri Peterson MD MICROBIOLOGY - GENERAL ORDERABL ES Final Result [facility] [address] [place] [address], [facility] * UPPER GI ENDOSCOPY (10/10/2024 11:48 AM EDT) 10/10/2024 11:4 8 AM EDT Narrative [facility] - 10/10/2024 12:34 PM EDT [id number] Procedure Date: 10/10/2024 11:48 AM Patient Name: Julien Gilbert Date of : 1985 Admit Type: Inpatient Age: 39 Gender: Male Note Status: Finalized Attending MD: Lino Soto MD, [id number] Procedure: Upper GI endoscopy Indications: Gastroesopahgeal variceal [...] verified by the physician, the nurse, the roaster helper and the wind technician in the pre-procedure area in the [...] to hypotension Procedure Code(s): --- Professional --- 18120, GC, Esophagogastroduodenoscopy, flexible, transoral; diagnostic, including collection of specimen(s) by brushing or washing, when performed (separate procedure) Diagnosis Code(s): --- Professional --- I85.00, Esophageal 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 All rights reserved. The codes documented in this report are preliminary and upon transit driver review may be revised to meet current [...] In: 12:10:16 PM Scope Out: 12:17:[address] [place] [address], [facility] us Provider Not In System PROCEDURE/MINOR SURGICAL ORDERABLES Final Result Performing Organization Address City/State/[facility] Co de Phone Number [facility] * (ABNORMAL) Protime-INR (10/10/2024 5:23 AM EDT) Protime 23.9(H) 12.1 - 15.1 seconds 10/10/2024 6:11 AM EDT [facility] INR 2.1(H) 0.9 - 1.1 10/10/2024 6:11 AM EDT [facility] Comment: RECOMMENDED THERAPEUTIC RANGES USING INR : Stable oral anticoagulant therapy: 2.0 - 3.0 Mechanical prosthetic heart valve: 2.5 - 3.5 Recurrent acute myocardial infarction: 2.5 - 3.5 Plasma 10/10/2024 5:23 AM EDT 10/10/2024 5:50 AM EDT us Eileen Schroeder MD, PhD LAB BLOOD ORDERABLES Final Result Performing Organization Address [facility] de Phone Number [facility] [address] [facility]. [address] * (ABNORMAL) Hepatic Function Panel (10/10/2024 5:23 AM EDT) Total Bilirubin 8.6(H) 0.0 - 1.5 mg/dL 10/10/2024 6:21 AM EDT [facility] Bilirubin, Direct 4.65(H) 0.00 - 0.40 mg/dL 10/10/2024 6:21 AM EDT [facility] AST 40(H) 13 - 39 U/L 10/10/2024 6:21 AM EDT [facility] ALT 22 7 - 52 U/L 10/10/2024 6:21 AM EDT [facility] Alkaline Phosphatase 118 36 - 125 U/L 10/10/2024 6:21 AM EDT [facility] Total Protein 4.6(L) 6.4 - 8.9 g/dL 10/10/2024 6:21 AM EDT [facility] Albumin 3.3(L) 3.5 - 5.7 g/dL 10/10/2024 6:21 AM EDT [facility] Bilirubin, Indirect 3.95(H) 0.00 - 1.10 mg/dL 10/10/2024 6:21 AM EDT [facility] Plasma 10/10/2024 5:23 AM EDT 10/10/2024 5:50 AM EDT us Eileen Schroeder MD, PhD LAB BLOOD ORDERABLES Final Result Performing Organization Address [facility] Co de Phone Number [facility] [address] [facility]. [address] * Magnesium (10/10/2024 5:23 AM EDT) Magnesium 1.9 1.5 - 2.5 mg/dL 10/10/2024 6:21 AM EDT [facility] Plasma 10/10/2024 5:23 AM EDT 10/10/2024 5:50 AM EDT us Eileen Schroeder MD, PhD LAB BLOOD ORDERABLES Final Result [facility] [address] [place] [address], [facility] * (ABNORMAL) Renal Function Panel w/EGFR (10/10/2024 5:23 AM EDT) Sodium 135 133 - 146 mmol/L 10/10/2024 6:21 AM EDT [facility] Potassium 3.6 3.5 - 5.3 mmol/L 10/10/2024 6:21 AM EDT [facility] Chloride 108 98 - 110 mmol/L 10/10/2024 6:21 AM EDT [facility] CO2 17(L) 21 - 33 mmol/L 10/10/2024 6:21 AM EDT [facility] Anion Gap 10 3 - 16 mmol/L 10/10/2024 6:21 AM EDT [facility] BUN 53(H) 7 - 25 mg/dL 10/10/2024 6:21 AM EDT [facility] Creatinine 2.85(H) 0.60 - 1.30 mg/dL 10/10/2024 6:21 AM EDT [facility] Glucose 113(H) 70 - 100 mg/dL 10/10/2024 6:21 AM EDT [facility] Calcium 9.0 8.6 - 10.3 mg/dL 10/10/2024 6:21 AM EDT [facility] Phosphorus 3.3 2.1 - 4.7 mg/dL 10/10/2024 6:21 AM EDT [facility] Albumin 3.3(L) 3.5 - 5.7 g/dL 10/10/2024 6:21 AM EDT [facility] Osmolality, Calculated 295 278 - 305 mOsm/kg 10/10/2024 6:21 AM EDT [facility] EGFR 28 10/10/2024 6:21 AM EDT [facility] Comment:As of 2021, the estimated [...] MD, PhD LAB BLOOD ORDERABLES Final Result [facility] [address] * (ABNORMAL) CBC (10/10/2024 5:23 AM EDT) WBC 5.1 3.8 - 10.8 10E3/uL 10/10/2024 6:14 AM EDT [facility] RBC 2.04(L) 4.20 - 5.80 10E6/uL 10/10/2024 6:14 AM EDT [facility] Hemoglobin 7.3(L) 13.2 - 17.1 g/dL 10/10/2024 6:14 AM EDT [facility] Hematocrit 20.6(L) 38.5 - 50.0 % 10/10/2024 6:14 AM EDT [facility] MCV 101.2(H) 80.0 - 100.0 fL 10/10/2024 6:14 AM EDT [facility] MCH 36.0(H) 27.0 - 33.0 pg 10/10/2024 6:14 AM EDT [facility] MCHC 35.5 32.0 - 36.0 g/dL 10/10/2024 6:14 AM EDT [facility] RDW 17.6(H) 11.0 - 15.0 % 10/10/2024 6:14 AM EDT [facility] Platelets 39(L) 140 - 400 10E3/uL 10/10/2024 6:14 AM EDT [facility] Comment: CNV Specimen checked for clots. None detected. MPV 9.8 7.5 - 11.5 fL 10/10/2024 6:14 AM EDT [facility] Whole Blood 10/10/2024 5:23 AM EDT 10/10/2024 5:51 AM EDT us Eileen Schroeder MD, PhD LAB BLOOD ORDERABLES Final Result Performing Organization Address [facility]/ZIP Co de Phone Number [facility] [address] [place] [address] * Vancomycin, random (10/10/2024 5:23 AM EDT) Vancomycin Random 16.4 ug/mL 10/10/2024 6:22 AM EDT [facility] Comment:Reference range not established for this test. Plasma 10/10/2024 5:23 AM EDT 10/10/2024 5:51 AM EDT us Jodi FreireD LAB BLOOD ORDERABLES Final Result Performing Organization Address [facility] Co de Phone Number [facility] [address] [place] [address] * ECHO STRESS W/ CONTRAST (10/09/2024 4:37 PM EDT) Anatomical Region Laterality Modality Chest Ultrasound 10/09/2024 2:40 PM EDT Narrative 10/09/2024 6:45 PM EDT * [facility]* [address] [place] [address] Stress Echocardiogram Patient: Julien Gilbert Room: 8142 Height: 76in MR Number: [id number] : 1985 Weight: 262lb Account: [id number] Gender: M BP: 125 / 77 Study Date: 10/09/2024 Age: 39 BSA: 2.48m^2 Referring physician: Gerri Peterson Interpreting physician: Tonya Henriquez MD FELLOW Lisa Jha MD PERFORMING Tonya Henriquez MD SCHEDULE ANNOUNCER [employer] Gan ORDERING Gerri Peterson REFERRING Gerri Peterson Sharice N ADMITTING RussArnaldo barbourah Procedure:STRESS ECHO - PHARMACOLOGIC Order: Indications: Pre-Operative [...] was augmented by the addition of hand civil transportation engineer and leg lifts. The infusion was terminated [...] at baseline or with provocation, shows no ksggn-eo-mxxf atrial level shunt. - Pulmonary arteries: Systolic [...] at baseline or with provocation, shows no bchxr-rc-glcl atrial level shunt. Pulmonary artery: - Systolic [...] at baseline or with provocation, shows no vuqzm-nn-gmic atrial level shunt. Pericardium: - There is [...] peak heart rate and blood pressure was [id number] Hg/min. Stress testing did not produce any [...] Reviewed and confirmed by Tonya Henriquez MD [id number] Procedure Note Tonya Henriquez MD - 10/09/2024 * [facility]* [address] [place] [address] Stress Echocardiogram Patient: Julien Gilbert Room: 8142 Height: 76in MR Number: [id number] : 1985 Weight: 262lb Account: [id number] Gender: M BP: 125 / 77 Study Date: 10/09/2024 Age: 39 BSA: 2.48m^2 Referring physician: Gerri Peterson Interpreting physician: Tonya Henriquez MD FELLOW Lisa Jha MD PERFORMING Tonya Henriquez MD SCHEDULE ANNOUNCER [employer] Gan ORDERING Gerri Peterson REFERRING Gerri Peterson ATTENDING Fouzia Rene ADMITTING Angie Blanchard Procedure:STRESS ECHO - PHARMACOLOGIC Order: Indications: Pre-Operative Clearance (Z01.818). PMH: EtOH Use Disorder. Risk factors: Hypertension. Dyslipidemia. Study data: Height: 76in. 193cm. Weight: 262lb. 118.8kg. The previousstudy was not available, so comparison was made to the report of 07/15/2024. Study status: Routine. Procedure: [facility] A baseline ECG was recorded. Intravenous access [...] was augmented by the addition of hand civil transportation engineer and leg lifts. The infusion was terminated [...] at baseline or with provocation, shows no dliie-jo-tubn atrial level shunt. - Pulmonary arteries: Systolic [...] study at baseline or with provocation, showsno nwvod-rv-orbg atrial level shunt. Pulmonary artery: - Systolic [...] at baseline or with provocation, shows no bwnlt-hz-ltmx atrial level shunt. Pericardium: - There is [...] heart rate). The maximal predicted heart rate [id number]. The target heart rate was 152bpm. The target heart rate was achieved.The heart rate response to stress is normal. There is a normal resting blood pressure with an appropriate response to stress. The rate-pressureproduct for the peak heart rate and blood pressure was 59082br Hg/min. Stress testing did not produce any [...] Reviewed and confirmed by Tonya Henriquez MD [id number] us Gerri Peterson MD CV ECHO ORDERABLES Final Result * (ABNORMAL) Renal Function Panel w/EGFR, STAT (10/09/2024 1:05 PM EDT) Sodium 134 133 - 146 mmol/L 10/09/2024 2:10 PM EDT [facility] Potassium 3.7 3.5 - 5.3 mmol/L 10/09/2024 2:10 PM EDT [facility] Chloride 105 98 - 110 mmol/L 10/09/2024 2:10 PM EDT [facility] CO2 17(L) 21 - 33 mmol/L 10/09/2024 2:10 PM EDT [facility] Anion Gap 12 3 - 16 mmol/L 10/09/2024 2:10 PM EDT [facility] BUN 53(H) 7 - 25 mg/dL 10/09/2024 2:10 PM EDT [facility] Creatinine 2.89(H) 0.60 - 1.30 mg/dL 10/09/2024 2:10 PM EDT [facility] Glucose 108(H) 70 - 100 mg/dL 10/09/2024 2:10 PM EDT [facility] Calcium 9.3 8.6 - 10.3 mg/dL 10/09/2024 2:10 PM EDT [facility] Phosphorus 3.4 2.1 - 4.7 mg/dL 10/09/2024 2:10 PM EDT [facility] Albumin 3.6 3.5 - 5.7 g/dL 10/09/2024 2:10 PM EDT [facility] Osmolality, Calculated 293 278 - 305 mOsm/kg 10/09/2024 2:10 PM EDT [facility] EGFR 27 10/09/2024 2:10 PM EDT [facility] Comment:As of 2021, the estimated [...] MD, PhD LAB BLOOD ORDERABLES Final Result [facility] [address] [place] [address], [facility] * (ABNORMAL) Renal Function Panel w/EGFR, STAT (10/09/2024 8:14 AM EDT) Sodium 134 133 - 146 mmol/L 10/09/2024 8:47 AM EDT [facility] Potassium 3.4(L) 3.5 - 5.3 mmol/L 10/09/2024 8:47 AM EDT [facility] Chloride 107 98 - 110 mmol/L 10/09/2024 8:47 AM EDT [facility] CO2 17(L) 21 - 33 mmol/L 10/09/2024 8:47 AM EDT [facility] Anion Gap 10 3 - 16 mmol/L 10/09/2024 8:47 AM EDT [facility] BUN 54(H) 7 - 25 mg/dL 10/09/2024 8:47 AM EDT [facility] Creatinine 3.04(H) 0.60 - 1.30 mg/dL 10/09/2024 8:47 AM EDT [facility] Glucose 124(H) 70 - 100 mg/dL 10/09/2024 8:47 AM EDT [facility] Calcium 9.0 8.6 - 10.3 mg/dL 10/09/2024 8:47 AM EDT [facility] Phosphorus 3.5 2.1 - 4.7 mg/dL 10/09/2024 8:47 AM EDT [facility] Albumin 3.4(L) 3.5 - 5.7 g/dL 10/09/2024 8:47 AM EDT [facility] Osmolality, Calculated 294 278 - 305 mOsm/kg 10/09/2024 8:47 AM EDT [facility] EGFR 26 10/09/2024 8:47 AM EDT [facility] Comment:As of 2021, the estimated [...] MD LAB BLOOD ORDERABLES Final Resu lt [facility] [address] * Prepare RBC, leukoreduced, 1 Units (10/09/2024 6:16 AM EDT) Product Code [id number] [facility] Unit Number [id number] [facility] Dispense Status Presumed Transfused_PT [facility] Blood Expiration Date [id number] [facility] Coding System [id number] [facility] Product us Eileen Schroeder [...] MD, PhD LAB BLOOD ORDERABLES Final Result [facility] [address] [place] [address], [facility] * (ABNORMAL) Hepatic Function Panel (10/09/2024 4:59 AM EDT) Total Bilirubin 9.0(H) 0.0 - 1.5 mg/dL 10/09/2024 6:42 AM EDT [facility] Bilirubin, Direct 4.60(H) 0.00 - 0.40 mg/dL 10/09/2024 6:42 AM EDT [facility] AST 38 13 - 39 U/L 10/09/2024 6:42 AM EDT [facility] ALT 18 7 - 52 U/L 10/09/2024 6:42 AM EDT [facility] Alkaline Phosphatase 122 36 - 125 U/L 10/09/2024 6:42 AM EDT [facility] Total Protein 4.8(L) 6.4 - 8.9 g/dL 10/09/2024 6:42 AM EDT [facility] Albumin 3.4(L) 3.5 - 5.7 g/dL 10/09/2024 6:42 AM EDT [facility] Bilirubin, Indirect 4.40(H) 0.00 - 1.10 mg/dL 10/09/2024 6:42 AM EDT [facility] Plasma 10/09/2024 4:59 AM EDT 10/09/2024 5:57 AM EDT us Eileen Schroeder MD, PhD LAB BLOOD ORDERABLES Final Result [facility] [address] * Magnesium (10/09/2024 4:59 AM EDT) Magnesium 1.8 1.5 - 2.5 mg/dL 10/09/2024 6:42 AM EDT [facility] Plasma 10/09/2024 4:59 AM EDT 10/09/2024 5:57 AM EDT us Eileen Schroeder MD, PhD LAB BLOOD ORDERABLES Final Result Performing Organization Address [facility] Co de Phone Number [facility] [address] * (ABNORMAL) Renal Function Panel w/EGFR (10/09/2024 4:59 AM EDT) Sodium 134 133 - 146 mmol/L 10/09/2024 6:42 AM EDT [facility] Potassium 3.3(L) 3.5 - 5.3 mmol/L 10/09/2024 6:42 AM EDT [facility] Chloride 107 98 - 110 mmol/L 10/09/2024 6:42 AM EDT [facility] CO2 16(L) 21 - 33 mmol/L 10/09/2024 6:42 AM EDT [facility] Anion Gap 11 3 - 16 mmol/L 10/09/2024 6:42 AM EDT [facility] BUN 56(H) 7 - 25 mg/dL 10/09/2024 6:42 AM EDT [facility] Creatinine 2.98(H) 0.60 - 1.30 mg/dL 10/09/2024 6:42 AM EDT [facility] Glucose 112(H) 70 - 100 mg/dL 10/09/2024 6:42 AM EDT [facility] Calcium 9.0 8.6 - 10.3 mg/dL 10/09/2024 6:42 AM EDT [facility] Phosphorus 3.5 2.1 - 4.7 mg/dL 10/09/2024 6:42 AM EDT [facility] Albumin 3.4(L) 3.5 - 5.7 g/dL 10/09/2024 6:42 AM EDT [facility] Osmolality, Calculated 294 278 - 305 mOsm/kg 10/09/2024 6:42 AM EDT [facility] EGFR 26 10/09/2024 6:42 AM EDT [facility] Comment:As of 2021, the estimated [...] HEALTH CARE FACILITY Co de Phone Number [facility] [address] * (ABNORMAL) CBC (10/09/2024 4:59 AM EDT) WBC 4.6 3.8 - 10.8 10E3/uL 10/09/2024 6:21 AM EDT [facility] RBC 2.17(L) 4.20 - 5.80 10E6/uL 10/09/2024 6:21 AM EDT [facility] Hemoglobin 8.0(L) 13.2 - 17.1 g/dL 10/09/2024 6:21 AM EDT [facility] Hematocrit 21.8(L) 38.5 - 50.0 % 10/09/2024 6:21 AM EDT [facility] MCV 100.5(H) 80.0 - 100.0 fL 10/09/2024 6:21 AM EDT [facility] MCH 36.7(H) 27.0 - 33.0 pg 10/09/2024 6:21 AM EDT [facility] MCHC 36.5(H) 32.0 - 36.0 g/dL 10/09/2024 6:21 AM EDT [facility] RDW 18.1(H) 11.0 - 15.0 % 10/09/2024 6:21 AM EDT [facility] Platelets 36(L) 140 - 400 10E3/uL 10/09/2024 6:21 AM EDT [facility] Comment:Specimen checked for clots. None detected. MPV 8.3 7.5 - 11.5 fL 10/09/2024 6:21 AM EDT [facility] Whole Blood 10/09/2024 4:59 AM EDT 10/09/2024 5:56 AM EDT us Eileen Schroeder MD, PhD LAB BLOOD ORDERABLES Final Result Performing Organization Address City/[facility]/ZIP Co de Phone Number [facility] [address] [place] [address], [facility] * Renal Tx Recipient (10/09/2024 4:59 AM EDT) Renal Transplant Recipient The request and specimen(s) for this test have been received and transported to the [facility] at [address] [place] [address]. The [facility] will report results directly to the client. 10/09/2024 7:26 AM EDT [facility] Blood 10/09/2024 4:59 AM EDT 10/09/2024 7:26 AM EDT us Aaron Gonzalez MD LAB BLOOD ORDERABLES Final Resu lt [facility] [address]. [address] * Vancomycin, random (10/09/2024 4:59 AM EDT) Vancomycin Random 11.0 ug/mL 10/09/2024 6:33 AM EDT [facility] Comment:Reference range not established for this test. Plasma 10/09/2024 4:59 AM EDT 10/09/2024 5:56 AM EDT Jodi Ortiz PharmD LAB BLOOD ORDERABLES Final Result [facility] [address] * (ABNORMAL) CBC (10/08/2024 5:52 PM EDT) WBC 5.6 3.8 - 10.8 10E3/uL 10/08/2024 6:52 PM EDT [facility] RBC 2.38(L) 4.20 - 5.80 10E6/uL 10/08/2024 6:52 PM EDT [facility] Hemoglobin 8.3(L) 13.2 - 17.1 g/dL 10/08/2024 6:52 PM EDT [facility] Hematocrit 24.6(L) 38.5 - 50.0 % 10/08/2024 6:52 PM EDT [facility] MCV 103.2(H) 80.0 - 100.0 fL 10/08/2024 6:52 PM EDT [facility] MCH 34.7(H) 27.0 - 33.0 pg 10/08/2024 6:52 PM EDT [facility] MCHC 33.6 32.0 - 36.0 g/dL 10/08/2024 6:52 PM EDT [facility] RDW 18.5(H) 11.0 - 15.0 % 10/08/2024 6:52 PM EDT [facility] Platelets 39(L) 140 - 400 10E3/uL 10/08/2024 6:52 PM EDT [facility] Comment:CNV MPV 8.1 7.5 - 11.5 fL 10/08/2024 6:52 PM EDT [facility] Whole Blood 10/08/2024 5:52 PM EDT 10/08/2024 6:45 PM EDT Eileen Schroeder MD, PhD LAB BLOOD ORDERABLES Final Result Performing Organization Address City/[facility]/ZIP Co de Phone Number [facility] [address] * Transfuse RBC Has consent been obtained? Yes; Transfusion Rate: Per dept routine (10/08/2024 1:17 PM EDT) Eileen Schroeder MD, PhD NURSING TREATMENT ORD ERABLES - BLOOD ADMIN Final Result Performing Organization Address City/[facility]/ZIP Co de Phone Number EXTERNAL * Transfuse RBC Has consent been obtained? Yes; Transfusion Rate: Per dept routine, 1 Units (10/08/2024 1:17 PM EDT) Eileen Schroeder MD, PhD NURSING TREATMENT ORD ERABLES - BLOOD ADMIN Final Result Performing Organization Address City/[facility]/ZIP Co de Phone Number EXTERNAL * (ABNORMAL) MMR(IgG) Panel (Measles, Mumps, Rubella) (10/08/2024 10:25 AM EDT) Mumps IgG Positive 10/08/2024 11:39 AM EDT [facility] MUMPS IGG NUM 99.00(H) 0.0 - 8.9 U/mL 10/08/2024 11:39 AM EDT [facility] Rubella IgG Scr Positive 10/08/2024 11:40 AM EDT [facility] RUB NUM 4.15(H) 0.00 - 0.89 INDEX 10/08/2024 11:40 AM EDT [facility] Rubeola Ab, IgG Positive 10/08/2024 11:39 AM EDT [facility] RUB IGG NUM 273.00(H) 0.00 - 13.40 U/mL 10/08/2024 11:39 AM EDT [facility] Serum 10/08/2024 10:2 5 AM EDT 10/08/2024 10:49 AM EDT Narrative [facility] - 10/08/2024 11:40 AM EDT Presence of detectable measles virus IgG antibodies. A positive result generally indicates exposure to measles virus or previous vaccination. Presence of detectable mumps virus IgG antibodies. A positive result generally indicates past exposure to mumps virus or previous vaccination. Sample is considered positive for IgG antibodies to rubella virus. Result [facility] Gerri Peterson MD LAB BLOOD ORDERABLES Final Resu lt Performing Organization Address [facility] Co de Phone Number [facility] [address] * (ABNORMAL) Hemoglobin A1C (10/08/2024 10:25 AM EDT) Hemoglobin A1C 3.7(L) 4.0 - 5.6 % 10/09/2024 1:22 PM EDT [facility] Comment: Hemoglobin A1c Interpretation Guidelines: [...] ORDERABLES Final Resu lt Performing Organization Address [facility] Co de Phone Number [facility] [address] [facility]. [address] * (ABNORMAL) Vitamin D 25 Hydroxy (10/08/2024 10:25 AM EDT) Vit D, 25-Hydroxy 7.1(L) 30.0 - 100.0 ng/mL 10/08/2024 11:36 AM EDT [facility] Comment: Vitamin D deficiency has been defined by the [place] [employer] (IOM) and an Endocrine Society [...] ORDERABLES Final Resu lt Performing Organization Address [facility] de Phone Number [facility] [address] [facility]. [address] * Iron Studies (Iron + TIBC) (10/08/2024 10:25 AM EDT) Iron 81 50 - 212 ug/dL 10/08/2024 11:23 AM EDT [facility] % Iron Saturation SEE COMMENT 15.0 - 55.0 % 10/08/2024 11:23 AM EDT [facility] Comment:Unable to calculate result because contributing result outside reportable range.. TIBC SEE COMMENT 261 - 462 ug/dL 10/08/2024 11:23 AM EDT [facility] Comment:Unable to calculate result because contributing result outside reportable range.. Serum 10/08/2024 10:2 5 AM EDT 10/08/2024 10:49 AM EDT Gerri Peterson MD LAB BLOOD ORDERABLES Final Resu lt Performing Organization Address [facility] Co de Phone Number [facility] [address] [facility]. [address] * (ABNORMAL) Ferritin (10/08/2024 10:25 AM EDT) Ferritin 706.9(H) 23.9 - 336.2 ng/mL 10/08/2024 11:35 AM EDT [facility] Serum 10/08/2024 10:2 5 AM EDT 10/08/2024 10:49 AM EDT Gerri Peterson MD LAB BLOOD ORDERABLES Final Resu lt [facility] [address] [place] [address]. [address] * QuantiFERON TB2 Ag (10/08/2024 10:25 AM EDT) QuantiFERON TB2 Ag Value 0.07 10/10/2024 10:41 AM EDT [facility] Plasma 10/08/2024 10:2 5 AM EDT 10/08/2024 11:05 AM EDT Gerri Peterson MD LAB BLOOD ORDERABLES Final Resu lt Performing Organization Address City/[facility]/ZIP Co de Phone Number [facility] [address] [place] [address]. [address] * QuantiFERON TB1 Ag (10/08/2024 10:25 AM EDT) QuantiFERON TB1 Ag Value 0.06 10/10/2024 10:41 AM EDT [facility] Plasma 10/08/2024 10:2 5 AM EDT 10/08/2024 11:05 AM EDT Gerri Peterson MD LAB BLOOD ORDERABLES Final Resu lt [facility] [address] [place] [address]. [address] * QuantiFERON Nil (10/08/2024 10:25 AM EDT) QuantiFERON Nil 0.06 10:41 AM EDT [facility] Plasma 10/08/2024 10:2 5 AM EDT 10/08/2024 11:05 AM EDT Gerri Peterson MD LAB BLOOD ORDERABLES Final Resu lt Performing Organization Address [facility]/State/ZIP Co de Phone Number [facility] [address] [facility] [place] [address], [facility] * QuantiFERON Mitogen (10/08/2024 10:25 AM EDT) Pathologist [facility] QuantiFERON Interpretation Negative Negative 10/10/2024 10:41 AM EDT [facility] Comment:Negative result geovanny cates M. tuberculosis infection is NOT likely. Negative results do not preclude tuberculosis infection (especially in immunosuppressed patients). Negative results have a TB antigen minus Nil value less than 0.35 IU/mL. In cases with high suspicion of disease, retesting or additional testing with medical evaluation may be useful. QuantiFERON Mitogen 4.87 10/10 10:41 AM EDT [facility] Plasma 10/08/2024 10:2 5 AM EDT 10/08/2024 11:05 AM EDT Narrative [facility] - 10/10/2024 10:41 AM EDT [...] MD LAB BLOOD ORDERABLES Final Resu lt [facility] [address] [facility] [place] [address], [facility] * Reticulocyte Count, Auto (10/08/2024 7:41 AM EDT) Pathologist [facility] Retic Ct Pct 1.35 0.50 - 2.00 % 10/08/2024 9:12 AM EDT [facility] Retic Ct Abs 26,190 25,000 - 90,000 /uL 10/08/2024 9:14 AM EDT [facility] Immature Retic Fract 0.37 0.09 - 0.56 10/08/2024 9:12 AM EDT [facility] Whole Blood 10/08/2024 7:41 AM EDT 10/08/2024 8:51 AM EDT Angie Blanchard MD LAB BLOOD ORDERABLES Final Res ult [facility] [id number] [facility]. [address] * (ABNORMAL) Haptoglobin (10/08/2024 7:41 AM EDT) Haptoglobin <30(L) 44 - 215 mg/dL 10/08/2024 8:53 AM EDT [facility] Serum 10/08/2024 7:41 AM EDT 10/08/2024 7:51 AM EDT Eileen Schroeder MD, PhD LAB BLOOD ORDERABLES Final Result Performing Organization Address City/[facility]/ZIP Co de Phone Number [facility] [address] [place] [address] * (ABNORMAL) CBC - Post Transfusion (10/08/2024 7:41 AM EDT) WBC 3.7(L) 3.8 - 10.8 10E3/uL 10/08/2024 8:34 AM EDT [facility] RBC 1.94(L) 4.20 - 5.80 10E6/uL 10/08/2024 8:34 AM EDT [facility] Hemoglobin 7.1(L) 13.2 - 17.1 g/dL 10/08/2024 8:34 AM EDT [facility] Hematocrit 20.0(L) 38.5 - 50.0 % 10/08/2024 8:34 AM EDT [facility] MCV 103.1(H) 80.0 - 100.0 fL 10/08/2024 8:34 AM EDT [facility] MCH 36.5(H) 27.0 - 33.0 pg 10/08/2024 8:34 AM EDT [facility] MCHC 35.4 32.0 - 36.0 g/dL 10/08/2024 8:34 AM EDT [facility] RDW 17.2(H) 11.0 - 15.0 % 10/08/2024 8:34 AM EDT [facility] Platelets 37(L) 140 - 400 10E3/uL 10/08/2024 8:34 AM EDT [facility] Comment: Specimen checked for clots. None detected. Slide Reviewed for PLT Clumps. None Seen. _Platelet Morphology Normal _Platelets Appear Decreased MPV 8.7 7.5 - 11.5 fL 10/08/2024 8:34 AM EDT [facility] Whole Blood 10/08/2024 7:41 AM EDT 10/08/2024 7:52 AM EDT [facility] - 10/08/2024 8:34 AM EDT Post-transfusion us Eileen Schroeder MD, PhD LAB BLOOD ORDERABLES Final Result Performing Organization Address [facility] Co de Phone Number [facility] [address] * Antibody Screen (10/08/2024 7:41 AM EDT) Antibody Screen Negative 10/08/2024 8:26 AM EDT [facility] Blood 10/08/2024 7:41 AM EDT 10/08/2024 7:57 AM EDT Narrative [facility] - 10/08/2024 8:32 AM EDT Testing performed by [facility] Transfusion Service us Eileen Schroeder MD, PhD BLOOD BANK TEST ORDER PAL Final Result [facility] [address] [place] [id number], [place] * ABO/Rh (10/08/2024 7:41 AM EDT) ABO Grouping O 10/08/2024 8:14 AM EDT [facility] Rh Type Positive 10/08/2024 8:14 AM EDT [facility] Blood 10/08/2024 7:41 AM EDT 10/08/2024 7:57 AM EDT Eileen Schroeder MD, PhD BLOOD BANK TEST ORDER PAL Final Result Performing Organization Address City/[facility]/ZIP Co de Phone Number [facility] [address] [place] [address]. [address] * (ABNORMAL) Lactate dehydrogenase (10/08/2024 5:36 AM EDT) LD 102(L) 110 - 270 U/L 10/08/2024 8:20 AM EDT [facility] Plasma 10/08/2024 5:36 AM EDT 10/08/2024 7:58 AM EDT Angie Blanchard MD LAB BLOOD ORDERABLES Final Res ult Performing Organization Address City/[facility]/ZIP Co de Phone Number [facility] [address] * (ABNORMAL) Protime-INR (10/08/2024 5:36 AM EDT) Protime 26.9(H) 12.1 - 15.1 seconds 10/08/2024 6:11 AM EDT [facility] INR 2.4(H) 0.9 - 1.1 10/08/2024 6:11 AM EDT [facility] Comment: RECOMMENDED THERAPEUTIC RANGES USING INR : Stable oral anticoagulant therapy: 2.0 - 3.0 Mechanical prosthetic heart valve: 2.5 - 3.5 Recurrent acute myocardial infarction: 2.5 - 3.5 Plasma 10/08/2024 5:36 AM EDT 10/08/2024 5:52 AM EDT us Eileen Schroeder MD, PhD LAB BLOOD ORDERABLES Final Result [facility] [address] * (ABNORMAL) Hepatic Function Panel (10/08/2024 5:36 AM EDT) Total Bilirubin 7.7(H) 0.0 - 1.5 mg/dL 10/08/2024 6:25 AM EDT [facility] Bilirubin, Direct 4.28(H) 0.00 - 0.40 mg/dL 10/08/2024 6:25 AM EDT [facility] AST 34 13 - 39 U/L 10/08/2024 6:25 AM EDT [facility] ALT 16 7 - 52 U/L 10/08/2024 6:25 AM EDT [facility] Alkaline Phosphatase 103 36 - 125 U/L 10/08/2024 6:25 AM EDT [facility] Total Protein 4.7(L) 6.4 - 8.9 g/dL 10/08/2024 6:25 AM EDT [facility] Albumin 3.5 3.5 - 5.7 g/dL 10/08/2024 6:25 AM EDT [facility] Bilirubin, Indirect 3.42(H) 0.00 - 1.10 mg/dL 10/08/2024 6:25 AM EDT [facility] Plasma 10/08/2024 5:36 AM EDT 10/08/2024 5:52 AM EDT us Eileen Schroeder MD, PhD LAB BLOOD ORDERABLES Final Result [facility] [address] [place] [address] * Magnesium (10/08/2024 5:36 AM EDT) Magnesium 1.9 1.5 - 2.5 mg/dL 10/08/2024 6:25 AM EDT [facility] Plasma 10/08/2024 5:36 AM EDT 10/08/2024 5:52 AM EDT us Eileen Schroeder MD, PhD LAB BLOOD ORDERABLES Final Result [facility] [address] [place] [address], [facility] * (ABNORMAL) Renal Function Panel w/EGFR (10/08/2024 5:36 AM EDT) Sodium 135 133 - 146 mmol/L 10/08/2024 6:25 AM EDT [facility] Potassium 3.2(L) 3.5 - 5.3 mmol/L 10/08/2024 6:25 AM EDT [facility] Chloride 106 98 - 110 mmol/L 10/08/2024 6:25 AM EDT [facility] CO2 17(L) 21 - 33 mmol/L 10/08/2024 6:25 AM EDT [facility] Anion Gap 12 3 - 16 mmol/L 10/08/2024 6:25 AM EDT [facility] BUN 61(H) 7 - 25 mg/dL 10/08/2024 6:25 AM EDT [facility] Creatinine 3.10(H) 0.60 - 1.30 mg/dL 10/08/2024 6:25 AM EDT [facility] Glucose 106(H) 70 - 100 mg/dL 10/08/2024 6:25 AM EDT [facility] Calcium 9.0 8.6 - 10.3 mg/dL 10/08/2024 6:25 AM EDT [facility] Phosphorus 4.0 2.1 - 4.7 mg/dL 10/08/2024 6:25 AM EDT [facility] Albumin 3.5 3.5 - 5.7 g/dL 10/08/2024 6:25 AM EDT [facility] Osmolality, Calculated 298 278 - 305 mOsm/kg 10/08/2024 6:25 AM EDT [facility] EGFR 25 10/08/2024 6:25 AM EDT [facility] Comment:As of 2021, the estimated [...] MD, PhD LAB BLOOD ORDERABLES Final Result [facility] [address] * (ABNORMAL) CBC (10/08/2024 5:36 AM EDT) WBC 3.2(L) 3.8 - 10.8 10E3/uL 10/08/2024 6:41 AM EDT [facility] RBC 1.86(L) 4.20 - 5.80 10E6/uL 10/08/2024 6:41 AM EDT [facility] Hemoglobin 6.9(L) 13.2 - 17.1 g/dL 10/08/2024 6:41 AM EDT [facility] Hematocrit 18.9(L) 38.5 - 50.0 % 10/08/2024 6:41 AM EDT [facility] MCV 101.6(H) 80.0 - 100.0 fL 10/08/2024 6:41 AM EDT [facility] MCH 36.9(H) 27.0 - 33.0 pg 10/08/2024 6:41 AM EDT [facility] MCHC 36.3(H) 32.0 - 36.0 g/dL 10/08/2024 6:41 AM EDT [facility] RDW 17.0(H) 11.0 - 15.0 % 10/08/2024 6:41 AM EDT [facility] Platelets 34(L) 140 - 400 10E3/uL 10/08/2024 6:41 AM EDT [facility] Comment: Specimen checked for clots. None detected. Slide Reviewed for PLT Clumps. None Seen. Platelet Estimate Decreased 10/08/2024 6:41 AM EDT [facility] MPV 8.4 7.5 - 11.5 fL 10/08/2024 6:41 AM EDT [facility] Whole Blood 10/08/2024 5:36 AM EDT 10/08/2024 5:53 AM EDT Narrative [facility] - 10/08/2024 6:41 AM EDT Peripheral blood smear was scanned per review criteria approved by the laboratory medical voucher clerk. Eileen Schroeder MD, PhD LAB BLOOD ORDERABLES Final Result Performing Organization Address City/[facility]/ZIP Co de Phone Number [facility] [address] [facility]. [address] * Vancomycin, random (10/08/2024 5:36 AM EDT) Vancomycin Random 16.0 ug/mL 10/08/2024 6:20 AM EDT [facility] Comment:Reference range not established for this test. Plasma 10/08/2024 5:36 AM EDT 10/08/2024 5:52 AM EDT us Jodi FreireD LAB BLOOD ORDERABLES Final Result Performing Organization Address [facility]/ZIP Co de Phone Number [facility] [address] [facility]. [address] * Urine Drug Confirmation (10/07/2024 10:50 PM EDT) BARBITURATES NOT PRESENT 10/09/2024 1:33 PM EDT [facility] BENZODIAZEPINES PRESENT 1:33 PM EDT [facility] Nordiazepam 3 ng/mL 10/09/2024 1:33 PM EDT [facility] Temazepam 6 ng/mL 10/09/2024 1:33 PM EDT [facility] CANNABINOIDS NOT PRESENT 10/09/2024 1:33 PM EDT [facility] ENGINEERING MANAGER STIMULANTS NOT PRESENT 1:33 PM EDT [facility] OPIOID ANALGESICS PRESENT 025 1:33 PM EDT [facility] Oxycodone 300 ng/mL 10/09/2024 1:33 PM EDT [facility] Oxymorphone 32 ng/mL 10/09/2024 1:33 PM EDT [facility] Tramadol >1000 ng/mL 10/09/2024 1:33 PM EDT [facility] OPIOID ANTAGONISTS NOT PRESENT 10/09 1:33 PM EDT [facility] SEDATIVES/MUSCLE RELAXANTS NOT PRESENT 10/09/2024 1:33 PM EDT [facility] TRICYCLIC ANTIDEPRESSANTS NOT PRESENT 10/09/2024 1:33 PM EDT [facility] Urine 10/07/2024 10:5 0 PM EDT 10/08/2024 3:00 AM EDT Gerri Peterson MD URINE ORDERABLES Final Result Performing Organization Address City/[facility] Co de Phone Number [facility] [address] * Giardia Cryptosporidium Antigens (10/07/2024 10:50 PM EDT) Cryptosporidium Ag Negative Negative 2024 7:59 AM EDT [facility] Giardia Ag Negative Negative 10/08/2024 7:59 AM EDT [facility] Comment: Detection of Giardia and Cryptosporidium antigen is more sensitive and specific than microscopy. Because antigens are shed continuously, repeat testing is rarely warranted. Feces 10/07/2024 10:5 0 PM EDT 10/08/2024 1:53 AM EDT Comment:F Bisi Hernandez DO MICROBIOLOGY - GENERAL ORDERABLE S Final Result [facility] [address] [facility]. [place] [id number] * (ABNORMAL) Urine Drug Screen Reflex to Confirmation (10/07/2024 10:50 PM EDT) Amphetamine, 500 ng/mL Cutoff Negative Negative 10/08/2024 3:00 AM EDT [facility] Barbiturates UR, 300 ng/mL Cutoff Negative Negative 10/08/2024 3:00 AM EDT [facility] Buprenorphine, 5 ng/mL Cutoff Negative Negative 10/08/2024 3:00 AM EDT [facility] Benzodiazepines UR, 300 ng/mL Cutoff Negative Negative 10/08/2024 3:00 AM EDT [facility] Cocaine UR, 300 ng/mL Cutoff Negative Negative 10/08/2024 3:00 AM EDT [facility] Methadone, UR, 300 ng/mL Cutoff Negative Negative 10/08/2024 3:00 AM EDT [facility] Opiates UR, 300 ng/mL Cutoff Negative Negative 10/08/2024 3:00 AM EDT [facility] Oxycodone, 100 ng/mL Cutoff Presumptive Positive(A) Negative 10/08/2024 3:00 AM EDT [facility] Tricyclic Antidepressants, 300 ng/mL Cutoff Negative Negative 10/08/2024 3:00 AM EDT [facility] Comment:This test has been d eveloped and its performance characteristics determined by [facility] which is certified under the Clinical [...] Cutoff Negative Negative 10/08/2024 3:00 AM EDT [facility] Comment:This is a screening method only and may be associated with false positive and/or false negative results. Results are not definitive without additional confirmatory testing by mass spectrometry. Fentanyl, 2 ng/mL Cutoff Negative Negative 10/08/2024 3:00 AM EDT [facility] Comment:This test has been d eveloped and its performance characteristics determined by [facility] which is certified under the Clinical [...] 3:00 AM EDT CONFIRMATION TO FOLLOW Gerri Peterosn MD URINE ORDERABLES Final Result [facility] [address] [facility]. [place] [id number], [facility] * Comprehensive Drug Screen (10/07/2024 10:50 PM EDT) Creatinine, Ur CANCELED mg/dL 10/08/2024 7:09 AM EDT [facility] Comment:The released value 8 7.30 was canceled by YAQUELIN on 10/08/2024 07:09 BARBITURATES CANCELED [facility] Butalbital CANCELED [facility] Phenobarbital [facility] Secobarbital CANC[facility] BENZODIAZEPINES CANCELED [facility] Alprazolam CANCEL[facility] Clonazepam CANCELED [facility] Diazepam [facility] Alpha-Hydroxyalprazo mcknight CANCELED [facility] Lorazepam CANCELED [facility] Midazolam [facility]CEL[facility] Nordiazepam [facility] Oxazepam CANCELED [facility] Tem[facility]epam CANCELED [facility] CANNABINOIDS CANCELED [facility] THC-COOH CANCELED [facility] ENGINEERING MANAGER STIMULANTS [facility]ED [facility] Cocaine Metabolite(benzoylec gonine) [facility] Amphetamine [facility] Methamphetamine [facility] MDA CANCELED [facility] MDEA [facility] Phencyclindine (PCP) CANCELED [facility] OPIOID ANALGESICS [facility]ED [facility] Heroin Metabolite(6-RAMONA) CANCELED [facility] Codeine [facility]ELED [facility] Morphine CANCELED [facility] Hydrocodone [facility] Hydromorphone [facility] Oxycodone [facility] Oxymorphone [facility] Meperidine [facility]ED [facility] Normeperidine [facility] Methadone [facility]ED [facility] Methadone Metabolite (EDDP) CANCELED [facility] Tramadol [facility]ED [facility] Fentanyl [facility]ED [facility] Norfentanyl [facility] Sufentanil [facility]ED [facility] OPIOID ANTAGONISTS CANCELED [facility] Buprenorphine [facility] Norbuprenorphine [facility]ELED [facility] Naltrexone [facility]ELED [facility] Naloxone [facility] SEDATIVES/MUSCLE RELAXANTS [facility]ED [facility] Carisoprodol [facility]ELED [facility] Meprobamate [facility] TRICYCLIC ANTIDEPRESSANTS CAN[facility]ELED [facility] Amitriptyline [facility] LAB Clomipramine [facility]ELED [facility] Desipramine CANCELED [facility] Doxepin CANCELED [facility] Imipramine CAN[facility]ELED [facility] Nortriptyline [facility]ELED [facility] Urine Creatinine CANCELED mg/dL [facility] Nitrite [facility]ELED [facility] Glutaraldehyde [facility]ED [facility] pH CANCELED 10/08/2024 7:09 AM EDT [facility] Comment:The released value 5 .6 was canceled by YAQUELIN on 10/08/2024 07:09 Specific [place] CANCELED 10/09/19 7:09 AM EDT [facility] Comment:The released value 1 .009 was canceled by MABLEE on 10/08/2024 07:09 Bleach CANCELED [facility] Pyridinium Chlorochromate CANCELED [facility] Urine 10/07/2024 10:5 0 PM EDT 10/08/2024 2:07 AM EDT Narrative [facility] - 10/08/2024 7:09 AM EDT See accn [id number] us Gerri Peterson MD URINE ORDERABLES Edited Result - Final [facility] [address] [facility] [address] * Ova and Parasite Comprehensive w/ Giardia/Crypto (10/07/2024 10:50 PM EDT) Pathologist [facility] O & P Method: Concentration and Trichrome Stain [facility] Results No Amoeba, Ova, Or Parasites Seen. -- O and P examination of additional specimens is recommended only for symptomatic patients, immunosuppressed patients or those with an appropriate travel history. [facility] Feces FECES / Unknown 10/07/2024 1 0:50 PM EDT 10/08/2024 1:53 AM EDT Comment:F Bisi Hernandez DO MICROBIOLOGY - GENERAL ORDERABLE S Final Result Performing Organization Address [facility] Co de Phone Number [facility] [address] [facility]. [address] * Enteric Pathogen Panel (10/07/2024 10:50 PM EDT) Pathologist [facility] Campylobacter Group (C. ecoli, C. jejuni, C. trino) Not Detected Not Detected 10/08/2024 4:40 AM EDT [facility] Salmonella species Not Detected Not Detected 10/08/2024 4:40 AM EDT [facility] Shigella species Not Detected Not Detected 10/08/2024 4:40 AM EDT [facility] Vibrio Group (Vibrio cholerae, Vibrio parahaemolyticus) Not Detected Not Detected 10/08/2024 4:40 AM EDT [facility] Yersinia enterocolitica Not Detected Not Detected 10/08/2024 4:40 AM EDT [facility] Shiga toxin 1 Not Detected Not Detected 10/08/2024 4:40 AM EDT [facility] Shiga toxin 2 Not Detected Not Detected 10/08/2024 4:40 AM EDT [facility] Norovirus Not Detected Not Detected 10/08/2024 4:40 AM EDT [facility] Rotavirus Not Detected Not Detected 10/08/2024 4:40 AM EDT [facility] Comment: The Enteric Pathogen Panel [...] PM EDT 10/08/2024 1:53 AM EDT Comment:F Bisijusten Hernandez DO BODY FLUIDS AND STOOLS ORDERABLE S Final Result Performing Organization Address [facility] Co de Phone Number [facility] [address] [facility]. [address] * Hepatitis C Antibody (10/07/2024 6:38 PM EDT) HCV Ab Nonreactive Nonreactive 10/07/2024 7:56 PM EDT [facility] Comment:Health Department no tified in accordance with reportable infectious disease guidelines. Serum 10/07/2024 6:38 PM EDT 10/07/2024 6:52 PM EDT Narrative [facility] - 10/07/2024 7:56 PM EDT Antibodies to HCV not detected; does not exclude the possibility of exposure to HCV. Result [facility] Gerri Peterson MD LAB BLOOD ORDERABLES Final Resu lt Performing Organization Address [facility] Co de Phone Number [facility] [address] [facility]. [address] * Hepatitis B Surface Antibody, Quantitati (10/07/2024 6:38 PM EDT) Hep B S Ab Nonreactive Nonreactive 10/07/2024 8:00 PM EDT [facility] HBSAB NUMBER 7.88 0.00 - 7.99 mIU/mL 10/07/2024 8:00 PM EDT [facility] Serum 10/07/2024 6:38 PM EDT 10/07/2024 6:52 PM EDT [facility] - 10/07/2024 8:00 PM EDT Individual is considered not immune to HBV infection. Gerri Peterson MD LAB BLOOD ORDERABLES Final Resu lt Performing Organization Address [facility]/ZIP Co de Phone Number [facility] [address] * Hepatitis B surface antigen (10/07/2024 6:38 PM EDT) Hep B Surface Ag Nonreactive Nonreactive 10/07/2024 7:51 PM EDT [facility] [facility] Comment:Health Department no tified in accordance with reportable infectious disease guidelines. Serum 10/07/2024 6:38 PM EDT 10/07/2024 6:52 PM EDT [facility] - 10/07/2024 7:51 PM EDT Specimen is considered negative for HBsAg. Gerri Peterson MD LAB BLOOD ORDERABLES Final Resu lt Performing Organization Address [facility] Co de Phone Number [facility] [address] [facility]. [address] * Hepatitis A Antibody Total (10/07/2024 6:38 PM EDT) Anti-HAV Total (IgG + IgM) Nonreactive 10/07/2024 7:53 PM EDT [facility] Serum 10/07/2024 6:38 PM EDT 10/07/2024 6:52 PM EDT [facility] - 10/07/2024 7:53 PM EDT HAV antibodies not detected Gerri Peterson MD LAB BLOOD ORDERABLES Final Resu lt [facility] [address] [facility]. [address] * Hepatitis A IgM (10/07/2024 6:38 PM EDT) Hep A IgM Nonreactive Nonreactive 10/07/2024 7:46 PM EDT [facility] Serum 10/07/2024 6:38 PM EDT 10/07/2024 6:52 PM EDT Narrative [facility] - 10/07/2024 7:46 PM EDT IgM anti-HAV not detected. Does not exclude the possibility of exposure to or infection with HAV. Levels of IgM anti-HAV may be below the cut-off in early infection. us Gerri Peterson MD LAB BLOOD ORDERABLES Final Resu lt [facility] [address] [id number], [facility] * (ABNORMAL) Lipid Profile (10/07/2024 6:37 PM EDT) Non-HDL Cholesterol, Calculated See Note 0 - 129 mg/dL 10/07/2024 7:42 PM EDT [facility] Comment: Desirable: < 130 mg/dL Above Desirable: 130-159 mg/dL Borderline High: 160-189 mg/dL High: 190-219 mg/dL Very High: > 219 mg/dL Unable to calculate result either because contributing result(s) are outside of reportable range or are not available. Cholesterol, Total <25 0 - 200 mg/dL 10/07/2024 7:42 PM EDT [facility] Triglycerides 30 10 - 149 mg/dL 10/07/2024 7:42 PM EDT [facility] HDL 4(L) 60 - 92 mg/dL 10/07/2024 7:42 PM EDT [facility] Comment: LIPID PROFILE INTERPRETATION CHOLESTEROL,TOTAL(mg/dL) [...] Cholesterol See Note mg/dL 7:42 PM EDT [facility] Comment:Unable to calculate result either because contributing result(s) are outside of reportable range or are not available. Plasma 10/07/2024 6:37 PM EDT 10/07/2024 7:06 PM EDT [facility] - 10/07/2024 7:42 PM EDT LDL cholesterol calculated using the Friedewald equation. us Gerri Peterson MD LAB BLOOD ORDERABLES Final Resu lt [facility] [address] [facility]. [address] * (ABNORMAL) Alpha 1 Antitrypsin AAT Quant & Mutation (10/07/2024 6:37 PM EDT) A-1 Antitrypsin 99(L) 101 - 187 mg/dL 10/09/2024 4:28 AM EDT [facility] A-1 Antitrypsin Pheno Comment 10/10/2024 4:05 PM EDT [facility] Comment: A1A Phenotype is consistent with a heterozygous phenotype consisting of one M (normal) allele and one allele that cannot be identified at this time. The unknown allele is not consistent with Z (deficient), S (deficient), or F (deficient). MM Phenotype is considered to be normal , producing normal serum levels of mqhrx-0-dgtmudzk inhibitor and not associated with clinical disease. [...] PM EDT 10/10/2024 4:08 PM EDT Narrative [facility] - 10/10/2024 4:08 PM EDT PERFORMED AT: [facility] [address] [id number] KEYBOARD OPERATOR: Bassam Khalil, PhD PHONE: [phone] PERFORMED AT: [facility] [address] [id number] KEYBOARD OPERATOR: Mandy Abdul MD PHONE: [phone] Gerri Peterson MD LAB BLOOD ORDERABLES Final Resu lt Performing Organization Address City/[facility]/ZIP Co de Phone Number [facility] [address] [place] [address] * (ABNORMAL) CMV IgG Antibody (10/07/2024 6:37 PM EDT) CMV IgG Positive(A ) Negative 10/07/2024 8:26 PM EDT [facility] CMV IGG NUM 8.40(H) 0.00 - 0.59 U/mL 10/07/2024 8:26 PM EDT [facility] Serum 10/07/2024 6:37 PM EDT 10/07/2024 6:50 PM EDT Gerri Peterson MD LAB BLOOD ORDERABLES Final Resu lt Performing Organization Address City/[facility]/ZIP Co de Phone Number [facility] [address] [place] [address] * HIV-1 and HIV-2 Antibodies w Reflex (10/07/2024 6:37 PM EDT) HIV 1+2 AB/AGN Nonreactive Nonreactive 10/07/2024 7:54 PM EDT [facility] Serum 10/07/2024 6:37 PM EDT 10/07/2024 7:06 PM EDT Narrative [facility] - 10/07/2024 7:54 PM EDT \HIVRNR Gerri Peterson MD LAB BLOOD ORDERABLES Final Resu lt [facility] [address] * TSH (Thyroid Stimulating Hormone) (10/07/2024 6:37 PM EDT) TSH 0.81 0.45 - 4.12 uIU/mL 10/07/2024 8:17 PM EDT [facility] Serum 10/07/2024 6:37 PM EDT 10/07/2024 6:50 PM EDT Gerri Peterson MD LAB BLOOD ORDERABLES Final Resu lt Performing Organization Address [facility] Co de Phone Number [facility] [address] * Katie-Watkins virus early antigen antibody, IgG (10/07/2024 6:37 PM EDT) Pathologist [facility] EBV Early Antigen Ab, IgG <9.0 0.0 - 8.9 U/mL 10/09/2024 2:16 PM EDT [facility] Comment: Negative < 9.0 Equivocal 9.0 - 10.9 Positive >10.9 Serum Frozen 10/07/2024 6:37 PM EDT 10/09/2024 3:07 PM EDT Narrative [facility] - 10/09/2024 3:07 PM EDT PERFORMED AT: [address] [id number] KEYBOARD OPERATOR: Bassam Khalil, PhD PHONE: [phone] Gerri Peterson MD LAB BLOOD ORDERABLES Final Resu lt [facility] [address] [facility]. [address] * (ABNORMAL) Varicella zoster antibody, IgG (10/07/2024 6:37 PM EDT) Pathologist [facility] Varicella IgG Positive( A) Negative S/CO 10/07/2024 8:34 PM EDT [facility] Comment:Result indicates the presence of detectable VZV IgG antibodies. A positive result is generally indicative of exposure to the pathogen or administration of specific immunoglobulins, but it is no indication of active infection or stage of disease. This test is not approved for determining vaccine-induced immunity to varicella zoster virus. VZV NUM 6.76(H) 0.00 - 0.99 S/CO 10/07/2024 8:34 PM EDT [facility] Serum 10/07/2024 6:37 PM EDT 10/07/2024 6:50 PM EDT Gerri Peterson MD LAB BLOOD ORDERABLES Final Resu lt Performing Organization Address [facility] Co de Phone Number [facility] [address] [facility]. [address] * Toxoplasma gondii antibody, IgG (10/07/2024 6:37 PM EDT) Pathologist [facility] Toxoplasma Gondii IgG <3.0 0.0 - 7.1 IU/mL 10/09/2024 7:53 AM EDT [facility] Comment: Negative <7.2 Equivocal 7.2 - 8.7 Positive >8.7 Serum 10/07/2024 6:37 PM EDT 10/09/2024 8:07 AM EDT Narrative [facility] - 10/09/2024 8:07 AM EDT PERFORMED AT: [address] [id number] KEYBOARD OPERATOR: Bassam Khalil, PhD PHONE: [phone] Gerri Peterson MD LAB BLOOD ORDERABLES Final Resu lt Performing Organization Address [facility] Co de Phone Number [facility] [facility]. [address] * Syphilis Screening (Trepia) (10/07/2024 6:37 PM EDT) Treponema Pallidum Negative Negative 10/07/2024 8:27 PM EDT [facility] Comment: No serological evidence of infection with Treponema pallidum (incubating or early primary syphilis cannot be excluded). Serum 10/07/2024 6:37 PM EDT 10/07/2024 6:50 PM EDT Gerri Peterson MD LAB BLOOD ORDERABLES Final Resu lt Performing Organization Address City/[facility]/ZIP Co de Phone Number [facility] [address] * Strongyloides Ab (10/07/2024 6:37 PM EDT) Strongyloides Ab Negative Negative 10/11/19 11:51 AM EDT [facility] Serum 10/07/2024 6:37 PM EDT 10/10/2024 12:07 PM EDT Narrative [facility] - 10/10/2024 12:07 PM EDT PERFORMED AT: [address] [id number] KEYBOARD OPERATOR: Mandy Abdul MD PHONE: [phone] Gerri Peterson MD LAB BLOOD ORDERABLES Final Resu lt Performing Organization Address [facility]/ZIP Co de Phone Number [facility] [address] * Phosphatidylethanol Confirmation, B (10/07/2024 6:37 PM EDT) PETH 16:0/18.1 (POPETH) <10 Cutoff: 10 ng/mL 10/10/2024 10:42 AM EDT [facility] Comment: Phosphatidylethanol (PEth) homologues result [...] Cutoff: 10 ng/mL 10/10/2024 10:42 AM EDT [facility] Comment: PEth 16:0/18:2 (PLPEth) Reference ranges are not well established PEth Interpretation Negative. 10/10 10:42 AM EDT [facility] Comment: ADDITIONAL INFORMATION This report is intended for use in clinical monitoring and management of patients. It is not intended for use in employment-related testing. This test was developed and its performance characteristics determined by [facility] in a manner consistent with CLIA requirements. This test has not been cleared or approved by the U.S. Food and Drug Administration. Test Performed by: [place] [address] [employer] Heating Installer: Kathy Ortiz Ph.D.; CLIA# [id number] Whole Blood 10/07/2024 6:37 PM EDT 10/10/2024 10:42 AM EDT us Gerri Peterson MD LAB BLOOD ORDERABLES Final Resu lt [facility] [address] [place] [address], [facility] * (ABNORMAL) MMR(IgG) Panel (Measles, Mumps, Rubella) (10/07/2024 6:37 PM EDT) Mumps IgG Positive 10/07/2024 8:26 PM EDT [facility] MUMPS IGG NUM 77.80(H) 0.0 - 8.9 U/mL 10/07/2024 8:26 PM EDT [facility] Rubella IgG Scr Positive 10/07/2024 8:28 PM EDT [facility] RUB NUM 3.04(H) 0.00 - 0.89 INDEX 10/07/2024 8:28 PM EDT [facility] Rubeola Ab, IgG Positive 10/07/2024 8:26 PM EDT [facility] RUB IGG NUM 192.00(H) 0.00 - 13.40 U/mL 10/07/2024 8:26 PM EDT [facility] Serum 10/07/2024 6:37 PM EDT 10/07/2024 6:50 PM EDT Narrative [facility] - 10/07/2024 8:28 PM EDT [...] ORDERABLES Final Resu lt Performing Organization Address [facility] Co de Phone Number [facility] [address] * IgA (10/07/2024 6:37 PM EDT) Pathologist [facility] IgA 227.0 70.0 - 400.0 mg/dL 10/08/2024 11:07 AM EDT [facility] Comment:Please interpret the se findings in conjunction with clinical findings, protein electrophoresis, and immunotyping/immunofixation results. Serum 10/07/2024 6:37 PM EDT 10/07/2024 6:50 PM EDT Gerri Peterson MD LAB BLOOD ORDERABLES Final Resu lt Performing Organization Address [facility]/ZIP Co de Phone Number [facility] [address] * Ethanol, Serum (10/07/2024 6:37 PM EDT) Ethanol <10 0 - 10 mg/dL 10/07/2024 8:36 PM EDT [facility] Serum 10/07/2024 6:37 PM EDT 10/07/2024 6:50 PM EDT Gerri Peterson MD LAB BLOOD ORDERABLES Final Resu lt [facility] [address] [facility]. [address] * ABO/Rh - Second (10/07/2024 6:37 PM EDT) ABO Grouping O 10/07/2024 7:16 PM EDT [facility] Rh Type Positive 10/07/2024 7:16 PM EDT [facility] Blood 10/07/2024 6:37 PM EDT 10/07/2024 6:56 PM EDT Narrative [facility] - 10/07/2024 7:18 PM EDT This is not a duplicate order. It is required that ABO be drawn twice for LIVER TRANSPLANT Result [facility] Gerri Peterson MD BLOOD BANK TEST ORDERABLES Denisse l Result Performing Organization Address [facility] Co de Phone Number [facility] [address] [facility]. [address] * ABO/Rh- Initial (10/07/2024 6:37 PM EDT) ABO Grouping O 10/07/2024 7:59 PM EDT [facility] Rh Type Positive 10/07/2024 7:59 PM EDT [facility] Blood 10/07/2024 6:37 PM EDT 10/07/2024 7:25 PM EDT Result [facility] Gerri Peterson MD BLOOD BANK TEST ORDERABLES Denisse l Result [facility] [address] [facility]. [address] * X-ray Mandible minimum 4-views (10/07/2024 [...] EXAM: US ABDOMEN COMPLETE EXAM: US DUPLEX [id number] COMPLETE INDICATION: elevated bilirubin COMPARISON: Ultrasound and [...] EXAM: US ABDOMEN COMPLETE EXAM: US DUPLEX [id number] COMPLETE INDICATION: elevated bilirubin COMPARISON: Ultrasound and [...] 10/07/2024 4:26 PM EDT us Bisi Mary [facility] ORDER[place]LES Final Result * US Duplex Riq-Erc-Sknqckv Comp (10/07/2024 3:48 PM EDT) Anatomical Region [...] EXAM: US ABDOMEN COMPLETE EXAM: US DUPLEX [id number] COMPLETE INDICATION: elevated bilirubin COMPARISON: Ultrasound and [...] EXAM: US ABDOMEN COMPLETE EXAM: US DUPLEX [id number] COMPLETE INDICATION: elevated bilirubin COMPARISON: Ultrasound and [...] PM EDT us Bisi Hernandez DO [facility] ORDER[place]LES Final Result * CARISA Rhythm Strip - Scan (10/07/2024 3:30 PM EDT) us Scanning Uchhim SCAN DOCS - NO RESULTS Final Res ult * (ABNORMAL) Protime-INR (10/07/2024 6:00 AM EDT) Protime 26.9(H) 12.1 - 15.1 seconds 10/07/2024 6:55 AM EDT [facility] INR 2.4(H) 0.9 - 1.1 10/07/2024 6:55 AM EDT [facility] Comment: RECOMMENDED THERAPEUTIC RANGES USING INR : Stable oral anticoagulant therapy: 2.0 - 3.0 Mechanical prosthetic heart valve: 2.5 - 3.5 Recurrent acute myocardial infarction: 2.5 - 3.5 Plasma 10/07/2024 6:00 AM EDT 10/07/2024 6:39 AM EDT Eileen Schroeder MD, PhD LAB BLOOD ORDERABLES Final Result [facility] [address] * (ABNORMAL) Hepatic Function Panel (10/07/2024 6:00 AM EDT) Total Bilirubin 9.7(H) 0.0 - 1.5 mg/dL 10/07/2024 7:10 AM EDT [facility] Bilirubin, Direct 5.21(H) 0.00 - 0.40 mg/dL 10/07/2024 7:10 AM EDT [facility] AST 39 13 - 39 U/L 10/07/2024 7:10 AM EDT [facility] ALT 18 7 - 52 U/L 10/07/2024 7:10 AM EDT [facility] Alkaline Phosphatase 98 36 - 125 U/L 10/07/2024 7:10 AM EDT [facility] Total Protein 4.8(L) 6.4 - 8.9 g/dL 10/07/2024 7:10 AM EDT [facility] Albumin 3.6 3.5 - 5.7 g/dL 10/07/2024 7:10 AM EDT [facility] Bilirubin, Indirect 4.49(H) 0.00 - 1.10 mg/dL 10/07/2024 7:10 AM EDT [facility] Plasma 10/07/2024 6:00 AM EDT 10/07/2024 6:39 AM EDT Eileen Schroeder MD, PhD LAB BLOOD ORDERABLES Final Result [facility] [address] * Magnesium (10/07/2024 6:00 AM EDT) Magnesium 1.7 1.5 - 2.5 mg/dL 10/07/2024 7:10 AM EDT [facility] Plasma 10/07/2024 6:00 AM EDT 10/07/2024 6:39 AM EDT us Eileen Schroeder MD, PhD LAB BLOOD ORDERABLES Final Result [facility] [address] * (ABNORMAL) Renal Function Panel w/EGFR (10/07/2024 6:00 AM EDT) Sodium 132(L) 133 - 146 mmol/L 10/07/2024 7:10 AM EDT [facility] Potassium 3.9 3.5 - 5.3 mmol/L 10/07/2024 7:10 AM EDT [facility] Chloride 103 98 - 110 mmol/L 10/07/2024 7:10 AM EDT [facility] CO2 19(L) 21 - 33 mmol/L 10/07/2024 7:10 AM EDT [facility] Anion Gap 10 3 - 16 mmol/L 10/07/2024 7:10 AM EDT [facility] BUN 64(H) 7 - 25 mg/dL 10/07/2024 7:10 AM EDT [facility] Creatinine 3.38(H) 0.60 - 1.30 mg/dL 10/07/2024 7:10 AM EDT [facility] Glucose 111(H) 70 - 100 mg/dL 10/07/2024 7:10 AM EDT [facility] Calcium 9.1 8.6 - 10.3 mg/dL 10/07/2024 7:10 AM EDT [facility] Phosphorus 4.2 2.1 - 4.7 mg/dL 10/07/2024 7:10 AM EDT [facility] Albumin 3.6 3.5 - 5.7 g/dL 10/07/2024 7:10 AM EDT [facility] Osmolality, Calculated 293 278 - 305 mOsm/kg 10/07/2024 7:10 AM EDT [facility] EGFR 22 10/07/2024 7:10 AM EDT [facility] Comment:As of 2021, the estimated [...] MD, PhD LAB BLOOD ORDERABLES Final Result [facility] [address] * (ABNORMAL) CBC (10/07/2024 6:00 AM EDT) WBC 3.3(L) 3.8 - 10.8 10E3/uL 10/07/2024 7:55 AM EDT [facility] RBC 2.06(L) 4.20 - 5.80 10E6/uL 10/07/2024 7:55 AM EDT [facility] Hemoglobin 7.4(L) 13.2 - 17.1 g/dL 10/07/2024 7:55 AM EDT [facility] Hematocrit 21.5(L) 38.5 - 50.0 % 10/07/2024 7:55 AM EDT [facility] MCV 104.1(H) 80.0 - 100.0 fL 10/07/2024 7:55 AM EDT [facility] MCH 35.8(H) 27.0 - 33.0 pg 10/07/2024 7:55 AM EDT [facility] MCHC 34.4 32.0 - 36.0 g/dL 10/07/2024 7:55 AM EDT [facility] RDW 17.5(H) 11.0 - 15.0 % 10/07/2024 7:55 AM EDT [facility] Platelets 35(L) 140 - 400 10E3/uL 10/07/2024 7:55 AM EDT [facility] Comment: Specimen checked for clots. None detected. Slide Reviewed for PLT Clumps. None Seen. _Platelet Morphology Normal _Platelets Appear Decreased Platelet Estimate Decreased 10/07/2024 7:55 AM EDT [facility] MPV 8.0 7.5 - 11.5 fL 10/07/2024 7:55 AM EDT [facility] Whole Blood 10/07/2024 6:00 AM EDT 10/07/2024 6:40 AM EDT [facility] - 10/07/2024 7:55 AM EDT Peripheral blood smear was scanned per review criteria approved by the laboratory medical voucher clerk. Eileen Schroeder MD, PhD LAB BLOOD ORDERABLES Final Result [facility] [address] [place] [address], [facility] * AFP Tumor Marker (10/07/2024 6:00 AM EDT) AFP-Tumor Marker 2.0 0.0 - 9.0 ng/mL 10/07/2024 7:11 AM EDT [facility] Serum 10/07/2024 6:00 AM EDT 10/07/2024 6:39 AM EDT Narrative [facility] - 10/07/2024 7:11 AM EDT The testing method for AFP is a chemiluminescent immunoassay manufactured by [employer] Concentrations of AFP obtained by different assay methods or kits may vary and cannot be used interchangeably. AFP results cannot be interpreted as absolute evidence of the presence or absence of malignant disease. Shila Rivera MD LAB BLOOD ORDERABLES Final Resul t Performing Organization Address [facility] Co de Phone Number [facility] [address] * Vancomycin, random (10/07/2024 6:00 AM EDT) Vancomycin Random 21.1 ug/mL 10/07/2024 7:08 AM EDT [facility] Comment:Reference range not established for this test. Plasma 10/07/2024 6:00 AM EDT 10/07/2024 6:39 AM EDT Kiet Gardiner PharmD LAB BLOOD ORDERABLES Final Re sult Performing Organization Address [facility] de Phone Number [facility] [address] * Osmolality (10/06/2024 2:50 PM EDT) Osmolality, Measured 304 278 - 305 mOsm/kg 10/06/2024 3:49 PM EDT [facility] Serum 10/06/2024 2:50 PM EDT 10/06/2024 2:56 PM EDT Chari Vanegas MD LAB BLOOD ORDERABLES Final Resul t Performing Organization Address [facility] Co de Phone Number [facility] [address] [facility] [address] * CT Head WO contrast (10/06/2024 [...] Ur <15 mmol/L 10/06/2024 1:56 PM EDT [facility] Comment:Reference range not established for this test. Urine 10/06/2024 1:25 PM EDT 10/06/2024 1:32 PM EDT us Chari Vanegas MD URINE ORDERABLES Final Result Performing Organization Address [facility] Co de Phone Number [facility] [address] * Potassium, urine, random (10/06/2024 1:25 PM EDT) Potassium Urine Random 50.0 mmol/L 10/06/2024 1:56 PM EDT [facility] Comment:Reference range not established for this test. Urine 10/06/2024 1:25 PM EDT 10/06/2024 1:32 PM EDT us Chari Vanegas MD URINE ORDERABLES Final Result Performing Organization Address [facility] Co de Phone Number [facility] [address] [facility]. [address] * Sodium, urine, random (10/06/2024 1:25 PM EDT) Sodium, Ur <10 mmol/L 10/06/2024 1:56 PM EDT [facility] Comment:Reference range not established for this test. Urine 10/06/2024 1:25 PM EDT 10/06/2024 1:32 PM EDT us Chari Vanegas MD URINE ORDERABLES Final Result Performing Organization Address [facility] Co de Phone Number [facility] [address] [facility] ([facility] [address] * Creatinine, Urine, Random (10/06/2024 1:25 PM EDT) Creatinine, Urine 87.40 mg/dL 10/06/2024 1:56 PM EDT [facility] Comment:Reference range not established for this test. Urine 10/06/2024 1:25 PM EDT 10/06/2024 1:32 PM EDT us Chari Vanegas MD URINE ORDERABLES Final Result Performing Organization Address City/[facility]/ZIP Co de Phone Number [facility] [address] * Osmolality, Urine (10/06/2024 1:25 PM EDT) Osmolality, Ur 386 50 - 1,200 mOsm/kg 10/06/2024 1:55 PM EDT [facility] Urine 10/06/2024 1:25 PM EDT 10/06/2024 1:32 PM EDT Chari Vanegas MD URINE ORDERABLES Final Result [facility] [address] * Urine Drug Confirmation (10/06/2024 11:51 AM EDT) BARBITURATES NOT PRESENT 10/09/2024 3:23 PM EDT [facility] Comment:Results were recheck ed. BENZODIAZEPINES PRESENT 3:23 PM EDT [facility] Nordiazepam 3 ng/mL 10/09/2024 3:23 PM EDT [facility] Comment:Results were recheck ed. Temazepam 8 ng/mL 10/09/2024 3:23 PM EDT [facility] Comment:Results were recheck ed. CANNABINOIDS NOT PRESENT 10/09/2024 3:23 PM EDT [facility] ENGINEERING MANAGER STIMULANTS NOT PRESENT 3:23 PM EDT [facility] OPIOID ANALGESICS PRESENT 025 3:23 PM EDT [facility] Oxycodone 329 ng/mL 10/09/2024 3:23 PM EDT [facility] Oxymorphone 61 ng/mL 10/09/2024 3:23 PM EDT [facility] Tramadol >1000 ng/mL 10/09/2024 3:23 PM EDT [facility] OPIOID ANTAGONISTS NOT PRESENT 10/09 3:23 PM EDT [facility] SEDATIVES/MUSCLE RELAXANTS NOT PRESENT 10/09/2024 3:23 PM EDT [facility] TRICYCLIC ANTIDEPRESSANTS NOT PRESENT 10/09/2024 3:23 PM EDT [facility] Urine 10/06/2024 11:5 1 AM EDT 10/06/2024 1:13 PM EDT Bisidante Hernandezana maría DOZIER URINE ORDERABLES Final Result [facility] [address] [place] [address], [facility] * (ABNORMAL) Urine Drug Screen Reflex to Confirmation (10/06/2024 11:51 AM EDT) Amphetamine, 500 ng/mL Cutoff Negative Negative 10/06/2024 1:13 PM EDT [facility] Barbiturates UR, 300 ng/mL Cutoff Negative Negative 10/06/2024 1:13 PM EDT [facility] Buprenorphine, 5 ng/mL Cutoff Negative Negative 10/06/2024 1:13 PM EDT [facility] Benzodiazepines UR, 300 ng/mL Cutoff Negative Negative 10/06/2024 1:13 PM EDT [facility] Cocaine UR, 300 ng/mL Cutoff Negative Negative 10/06/2024 1:13 PM EDT [facility] Methadone, UR, 300 ng/mL Cutoff Negative Negative 10/06/2024 1:13 PM EDT [facility] Opiates UR, 300 ng/mL Cutoff Negative Negative 10/06/2024 1:13 PM EDT [facility] Oxycodone, 100 ng/mL Cutoff Presumptive Positive(A) Negative 10/06/2024 1:13 PM EDT [facility] Tricyclic Antidepressants, 300 ng/mL Cutoff Negative Negative 10/06/2024 1:13 PM EDT [facility] Comment:This test has been d eveloped and its performance characteristics determined by [facility] which is certified under the Clinical [...] Cutoff Negative Negative 10/06/2024 1:13 PM EDT [facility] Comment:This is a screening method only and may be associated with false positive and/or false negative results. Results are not definitive without additional confirmatory testing by mass spectrometry. Fentanyl, 2 ng/mL Cutoff Negative Negative 10/06/2024 1:13 PM EDT [facility] Comment:This test has been d eveloped and its performance characteristics determined by [facility] which is certified under the Clinical [...] AM EDT 10/06/2024 11:58 AM EDT Narrative [facility] - 10/06/2024 1:13 PM EDT CONFIRMATION TO FOLLOW [facility] DO URINE ORDERABLES Final Result Performing Organization Address [facility] Co de Phone Number [facility] [address] [place] [address] * Chloride, urine, random (10/06/2024 11:51 AM EDT) Chloride, Ur <15 mmol/L 10/06/2024 1:13 PM EDT [facility] Comment:Reference range not established for this test. Urine 10/06/2024 11:5 1 AM EDT 10/06/2024 11:57 AM EDT [facility] URINE ORDERABLES Final Result Performing Organization Address [facility] Co de Phone Number [facility] [address] [facility]. [address] * Potassium, urine, random (10/06/2024 11:51 AM EDT) Potassium Urine Random 49.0 mmol/L 10/06/2024 1:13 PM EDT [facility] Comment:Reference range not established for this test. Urine 10/06/2024 11:5 1 AM EDT 10/06/2024 11:57 AM EDT Enbaseana maría DO URINE ORDERABLES Final Result [facility] [address] [facility]. [address] * Sodium, urine, random (10/06/2024 11:51 AM EDT) Sodium, Ur <10 mmol/L 10/06/2024 1:13 PM EDT [facility] Comment:Reference range not established for this test. Urine 10/06/2024 11:5 1 AM EDT 10/06/2024 11:57 AM EDT Bisi Hernandez DO URINE ORDERABLES Final Result Performing Organization Address [facility]/ZIP Co de Phone Number [facility] [address] [facility] ([facility] [address] * Urinalysis w/Rfl to Microscopic (10/06/2024 11:51 AM EDT) Color, UA Yellow Yellow,Straw 10/06/2024 12:25 PM EDT [facility] Clarity, UA Clear Clear 10/06/2024 12:25 PM EDT [facility] Specific [place], UA 1.014 1.005 - 1.035 10/06/2024 12:25 PM EDT [facility] pH, UA 6.0 5.0 - 8.0 10/06/2024 12:25 PM EDT [facility] Protein, UA Negative Negative mg/dL 10/06/2024 12:25 PM EDT [facility] Glucose, UA Negative Negative mg/dL 10/06/2024 12:25 PM EDT [facility] Ketones, UA Negative Negative mg/dL 10/06/2024 12:25 PM EDT [facility] Bilirubin, UA Negative Negative 10/06/2024 12:25 PM EDT [facility] Blood, UA Negative Negative 10/06/2024 12:25 PM EDT [facility] Nitrite, UA Negative Negative 10/06/2024 12:25 PM EDT [facility] Urobilinogen, UA <2.0 0.2 - 1.9 mg/dL 10/06/2024 12:25 PM EDT [facility] Leukocyte Esterase, UA Negative Negative 10/06/2024 12:25 PM EDT [facility] Urine 10/06/2024 11:5 1 AM EDT 10/06/2024 11:57 AM EDT Narrative [facility] - 10/06/2024 12:25 PM EDT Microscopic testing is not performed when the dipstick is negative for blood, leukocyte, protein and nitrite. Bisi Hernandez DO URINE ORDERABLES Final Result Performing Organization Address City/[facility]/ZIP Co de Phone Number [facility] [address] * Lactic Acid, STAT (10/06/2024 7:38 AM EDT) Lactate 0.9 0.5 - 2.2 mmol/L 10/06/2024 8:05 AM EDT [facility] Plasma 10/06/2024 7:38 AM EDT 10/06/2024 7:42 AM EDT Chari Vanegas MD LAB BLOOD ORDERABLES Final Resul t Performing Organization Address [facility] Co de Phone Number [facility] [address] * (ABNORMAL) CBC, STAT (10/06/2024 7:37 AM EDT) WBC 5.6 3.8 - 10.8 10E3/uL 10/06/2024 8:22 AM EDT [facility] RBC 2.50(L) 4.20 - 5.80 10E6/uL 10/06/2024 8:22 AM EDT [facility] Hemoglobin 9.0(L) 13.2 - 17.1 g/dL 10/06/2024 8:22 AM EDT [facility] Hematocrit 25.3(L) 38.5 - 50.0 % 10/06/2024 8:22 AM EDT [facility] MCV 101.2(H) 80.0 - 100.0 fL 10/06/2024 8:22 AM EDT [facility] MCH 36.0(H) 27.0 - 33.0 pg 10/06/2024 8:22 AM EDT [facility] MCHC 35.6 32.0 - 36.0 g/dL 10/06/2024 8:22 AM EDT [facility] RDW 17.7(H) 11.0 - 15.0 % 10/06/2024 8:22 AM EDT [facility] Platelets 52(L) 140 - 400 10E3/uL 10/06/2024 8:22 AM EDT [facility] Comment: Specimen checked for clots. None detected. Slide Reviewed for PLT Clumps. None Seen. MPV 8.2 7.5 - 11.5 fL 10/06/2024 8:22 AM EDT [facility] Whole Blood 10/06/2024 7:37 AM EDT 10/06/2024 7:43 AM EDT us Chari Vanegas MD LAB BLOOD ORDERABLES Final Resul t [facility] [address] [place] [address], [facility] * (ABNORMAL) Comprehensive Metabolic Panel (10/06/2024 7:37 AM EDT) Sodium 129(L) 133 - 146 mmol/L 10/06/2024 8:16 AM EDT [facility] Potassium 4.4 3.5 - 5.3 mmol/L 10/06/2024 8:16 AM EDT [facility] Chloride 100 98 - 110 mmol/L 10/06/2024 8:16 AM EDT [facility] CO2 18(L) 21 - 33 mmol/L 10/06/2024 8:16 AM EDT [facility] Anion Gap 11 3 - 16 mmol/L 10/06/2024 8:16 AM EDT [facility] BUN 62(H) 7 - 25 mg/dL 10/06/2024 8:16 AM EDT [facility] Creatinine 3.40(H) 0.60 - 1.30 mg/dL 10/06/2024 8:16 AM EDT [facility] Glucose 98 70 - 100 mg/dL 10/06/2024 8:16 AM EDT [facility] Calcium 9.5 8.6 - 10.3 mg/dL 10/06/2024 8:16 AM EDT [facility] Total Bilirubin 14.3(H) 0.0 - 1.5 mg/dL 10/06/2024 8:16 AM EDT [facility] AST 57(H) 13 - 39 U/L 10/06/2024 8:16 AM EDT [facility] ALT 29 7 - 52 U/L 10/06/2024 8:16 AM EDT [facility] Alkaline Phosphatase 158(H) 36 - 125 U/L 10/06/2024 8:16 AM EDT [facility] Total Protein 5.6(L) 6.4 - 8.9 g/dL 10/06/2024 8:16 AM EDT [facility] Albumin 3.6 3.5 - 5.7 g/dL 10/06/2024 8:16 AM EDT [facility] Osmolality, Calculated 286 278 - 305 mOsm/kg 10/06/2024 8:16 AM EDT [facility] EGFR 22 10/06/2024 8:16 AM EDT [facility] Comment:As of 2021, the estimated [...] MD LAB BLOOD ORDERABLES Final Resul t [facility] [address] [place] [facility] ([facility] [place] [address], [facility] * (ABNORMAL) Venous Blood Gas, Line/Syringe, STAT (10/06/2024 7:37 AM EDT) PH-Line Draw 7.27(L) 7.32 - 7.42 10/06/2024 7:46 AM EDT [facility] PCO2-Line Draw 36(L) 41 - 51 mm Hg 10/06/2024 7:46 AM EDT [facility] PO2-Line Draw 44(H) 25 - 40 mm Hg 10/06/2024 7:46 AM EDT [facility] HCO3-Line Draw 17(L) 24 - 28 mmol/L 10/06/2024 7:46 AM EDT [facility] CO2 Content-Line Draw 18(L) 25 - 29 mmol/L 10/06/2024 7:46 AM EDT [facility] Base Excess-Line Draw -9.6(L) -2.0 - 3.0 mmol/L 10/06/2024 7:46 AM EDT [facility] %HBO2-Line Draw 69.8 40.0 - 70.0 % 10/06/2024 7:46 AM EDT [facility] Carboxyhgb-Ludivina e Draw 0.7 % 10/06/2024 7:46 AM EDT [facility] Comment: CARBOXYHEMOGLOBIN (CO) REFERENCE RANGES: Non-Smokers: <2 % Smokers: <8 % TOXIC: >20 % Methemoglobin- Line Draw 0.3 0.0 - 1.5 % 10/06/2024 7:46 AM EDT [facility] Reduced Hemoglobin-Ludivina e Draw 29.2(H) 0.0 - 5.0 % 10/06/2024 7:46 AM EDT [facility] Venous, Line Draw 10/06/2024 7:37 AM EDT 10/06/2024 7:43 AM EDT Chari Vanegas MD LAB BLOOD ORDERABLES Final Resul t [facility] [address] [facility] ([facility] [address] * (ABNORMAL) Venous Blood Gas, Line/Syringe, STAT (10/06/2024 4:03 AM EDT) PH-Line Draw 7.21(L) 7.32 - 7.42 10/06/2024 4:16 AM EDT [facility] PCO2-Line Draw 41 41 - 51 mm Hg 10/06/2024 4:16 AM EDT [facility] PO2-Line Draw 32 25 - 40 mm Hg 10/06/2024 4:16 AM EDT [facility] HCO3-Line Draw 16(L) 24 - 28 mmol/L 10/06/2024 4:16 AM EDT [facility] CO2 Content-Line Draw 18(L) 25 - 29 mmol/L 10/06/2024 4:16 AM EDT [facility] Base Excess-Line Draw -10.8(L) -2.0 - 3.0 mmol/L 10/06/2024 4:16 AM EDT [facility] %HBO2-Line Draw 47.5 40.0 - 70.0 % 10/06/2024 4:16 AM EDT [facility] Carboxyhgb-Ludivina e Draw 2.0 % 10/06/2024 4:16 AM EDT [facility] Comment: CARBOXYHEMOGLOBIN (CO) REFERENCE RANGES: Non-Smokers: <2 % Smokers: <8 % TOXIC: >20 % Methemoglobin- Line Draw 0.7 0.0 - 1.5 % 10/06/2024 4:16 AM EDT [facility] Reduced Hemoglobin-Ludivina e Draw 49.8(H) 0.0 - 5.0 % 10/06/2024 4:16 AM EDT [facility] Venous, Line Draw 10/06/2024 4:03 AM EDT 10/06/2024 4:12 AM EDT us Bisi Hernandez DO LAB BLOOD ORDERABLES Final Resul t [facility] [address] [place] [address], [facility] * (ABNORMAL) Protime-INR (10/06/2024 4:01 AM EDT) Protime 21.3(H) 12.1 - 15.1 seconds 10/06/2024 4:40 AM EDT [facility] INR 1.8(H) 0.9 - 1.1 10/06/2024 4:40 AM EDT [facility] Comment: RECOMMENDED THERAPEUTIC RANGES USING INR : Stable oral anticoagulant therapy: 2.0 - 3.0 Mechanical prosthetic heart valve: 2.5 - 3.5 Recurrent acute myocardial infarction: 2.5 - 3.5 Plasma 10/06/2024 4:01 AM EDT 10/06/2024 4:11 AM EDT us Bisi Hernandez DO LAB BLOOD ORDERABLES Final Resul t [facility] [address] * (ABNORMAL) Hepatic Function Panel, AM (10/06/2024 4:01 AM EDT) Total Bilirubin 14.7(H) 0.0 - 1.5 mg/dL 10/06/2024 4:57 AM EDT [facility] Bilirubin, Direct 7.08(H) 0.00 - 0.40 mg/dL 10/06/2024 4:57 AM EDT [facility] AST 60(H) 13 - 39 U/L 10/06/2024 4:57 AM EDT [facility] ALT 31 7 - 52 U/L 10/06/2024 4:57 AM EDT [facility] Alkaline Phosphatase 162(H) 36 - 125 U/L 10/06/2024 4:57 AM EDT [facility] Total Protein 5.3(L) 6.4 - 8.9 g/dL 10/06/2024 4:57 AM EDT [facility] Albumin 3.4(L) 3.5 - 5.7 g/dL 10/06/2024 4:57 AM EDT [facility] Bilirubin, Indirect 7.62(H) 0.00 - 1.10 mg/dL 10/06/2024 4:57 AM EDT [facility] Plasma 10/06/2024 4:01 AM EDT 10/06/2024 4:22 AM EDT shipbeat DO LAB BLOOD ORDERABLES Final Resul t [facility] [address] [facility]. [address] * Magnesium (10/06/2024 4:01 AM EDT) Magnesium 1.8 1.5 - 2.5 mg/dL 10/06/2024 4:57 AM EDT [facility] Plasma 10/06/2024 4:01 AM EDT 10/06/2024 4:22 AM EDT Bl[employer] for iPhone and Android LAB BLOOD ORDERABLES Final Resul t Performing Organization Address [facility] Co de Phone Number [facility] [address] [facility]. [address] * (ABNORMAL) Renal Function Panel w/EGFR (10/06/2024 4:01 AM EDT) Sodium 129(L) 133 - 146 mmol/L 10/06/2024 4:57 AM EDT [facility] Potassium 4.7 3.5 - 5.3 mmol/L 10/06/2024 4:57 AM EDT [facility] Chloride 100 98 - 110 mmol/L 10/06/2024 4:57 AM EDT [facility] CO2 16(L) 21 - 33 mmol/L 10/06/2024 4:57 AM EDT [facility] Anion Gap 13 3 - 16 mmol/L 10/06/2024 4:57 AM EDT [facility] BUN 61(H) 7 - 25 mg/dL 10/06/2024 4:57 AM EDT [facility] Creatinine 3.49(H) 0.60 - 1.30 mg/dL 10/06/2024 4:57 AM EDT [facility] Glucose 104(H) 70 - 100 mg/dL 10/06/2024 4:57 AM EDT [facility] Calcium 9.2 8.6 - 10.3 mg/dL 10/06/2024 4:57 AM EDT [facility] Phosphorus 5.3(H) 2.1 - 4.7 mg/dL 10/06/2024 4:57 AM EDT [facility] Albumin 3.4(L) 3.5 - 5.7 g/dL 10/06/2024 4:57 AM EDT [facility] Osmolality, Calculated 286 278 - 305 mOsm/kg 10/06/2024 4:57 AM EDT [facility] EGFR 22 10/06/2024 4:57 AM EDT [facility] Comment:As of 2021, the estimated [...] DO LAB BLOOD ORDERABLES Final Resul t [facility] [address] * (ABNORMAL) CBC (10/06/2024 4:01 AM EDT) WBC 7.6 3.8 - 10.8 10E3/uL 10/06/2024 5:16 AM EDT [facility] RBC 2.77(L) 4.20 - 5.80 10E6/uL 10/06/2024 5:16 AM EDT [facility] Hemoglobin 10.1(L) 13.2 - 17.1 g/dL 10/06/2024 5:16 AM EDT [facility] Hematocrit 28.4(L) 38.5 - 50.0 % 10/06/2024 5:16 AM EDT [facility] MCV 102.4(H) 80.0 - 100.0 fL 10/06/2024 5:16 AM EDT [facility] MCH 36.4(H) 27.0 - 33.0 pg 10/06/2024 5:16 AM EDT [facility] MCHC 35.5 32.0 - 36.0 g/dL 10/06/2024 5:16 AM EDT [facility] RDW 18.0(H) 11.0 - 15.0 % 10/06/2024 5:16 AM EDT [facility] Platelets 53(L) 140 - 400 10E3/uL 10/06/2024 5:16 AM EDT [facility] Comment:Specimen checked for clots. None detected. MPV 8.4 7.5 - 11.5 fL 10/06/2024 5:16 AM EDT [facility] Whole Blood 10/06/2024 4:01 AM EDT 10/06/2024 4:11 AM EDT [employer] Android LAB BLOOD ORDERABLES Final Resul t Performing Organization Address City/State/[facility] Co de Phone Number [facility] [address] [place] [address], [facility] * Hepatitis C Antibody (10/06/2024 4:01 AM EDT) HCV Ab Nonreactive Nonreactive 10/06/2024 5:12 AM EDT [facility] Comment:Health Department no tified in accordance with reportable infectious disease guidelines. Serum 10/06/2024 4:01 AM EDT 10/06/2024 4:11 AM EDT Narrative [facility] - 10/06/2024 5:12 AM EDT Antibodies to HCV not detected; does not exclude the possibility of exposure to HCV. [employer] LAB BLOOD ORDERABLES Final Resul t [facility] [address] [facility]. [address] * (ABNORMAL) Hepatitis B Surface Antibody, Quantitati (10/06/2024 4:01 AM EDT) Hep B S Ab Reactive( A) Nonreactive 10/06/2024 5:16 AM EDT [facility] HBSAB NUMBER 11.50(H) 0.00 - 7.99 mIU/mL 10/06/2024 5:16 AM EDT [facility] Serum 10/06/2024 4:01 AM EDT 10/06/2024 4:11 AM EDT [facility] - 10/06/2024 5:16 AM EDT Individual is considered immune to HBV infection. [employer] and [employer] LAB BLOOD ORDERABLES Final Resul t Performing Organization Address [facility] Co de Phone Number [facility] [address] [facility]. [address] * Hepatitis B surface antigen (10/06/2024 4:01 AM EDT) Hep B Surface Ag Nonreactive Nonreactive 10/06/2024 5:07 AM EDT [facility] Comment:Health Department no tified in accordance with reportable infectious disease guidelines. Serum 10/06/2024 4:01 AM EDT 10/06/2024 4:11 AM EDT [facility] - 10/06/2024 5:07 AM EDT Specimen is considered negative for HBsAg. [employer] LAB BLOOD ORDERABLES Final Resul t Performing Organization Address [facility] Co de Phone Number [facility] [address] [facility]. [address] * Hepatitis A Antibody Total (10/06/2024 4:01 AM EDT) Anti-HAV Total (IgG + IgM) Nonreactive 10/06/2024 5:08 AM EDT [facility] Serum 10/06/2024 4:01 AM EDT 10/06/2024 4:11 AM EDT Narrative [facility] - 10/06/2024 5:08 AM EDT HAV antibodies not detected [employer] LAB BLOOD ORDERABLES Final Resul t Performing Organization Address City/[facility]/ZIP Co de Phone Number [facility] [address] * Hepatitis A IgM (10/06/2024 4:01 AM EDT) Hep A IgM Nonreactive Nonreactive 10/06/2024 5:02 AM EDT [facility] Serum 10/06/2024 4:01 AM EDT 10/06/2024 4:11 AM EDT Narrative [facility] - 10/06/2024 5:02 AM EDT IgM anti-HAV not detected. Does not exclude the possibility of exposure to or infection with HAV. Levels of IgM anti-HAV may be below the cut-off in early infection. [employer] LAB BLOOD ORDERABLES Final Resul t Performing Organization Address [facility] Co de Phone Number [facility] [address] [facility] [address] * (ABNORMAL) Salicylate Level (10/06/2024 4:01 AM EDT) Salicylate Lvl <3(L) 10 - 30 mg/dL 10/06/2024 4:58 AM EDT [facility] Serum 10/06/2024 4:01 AM EDT 10/06/2024 4:22 AM EDT shipbeat DO LAB BLOOD ORDERABLES Final Resul t Performing Organization Address City/[facility]/ZIP Co de Phone Number [facility] [address] [facility] ([facility] [address] * AFP Tumor Marker (10/06/2024 4:01 AM EDT) [facility] AFP-Tumor Marker 2.6 0.0 - 9.0 ng/mL 10/06/2024 4:55 AM EDT [facility] Serum 10/06/2024 4:01 AM EDT 10/06/2024 4:22 AM EDT Narrative [facility] - 10/06/2024 4:55 AM EDT The testing method for AFP is a chemiluminescent immunoassay manufactured by [employer] Concentrations of AFP obtained by different assay methods or kits may vary and cannot be used interchangeably. AFP results cannot be interpreted as absolute evidence of the presence or absence of malignant disease. us Bisi Hernandez DO LAB BLOOD ORDERABLES Final Resul t [facility] [address] [facility] [place] [address], [facility] * Upper Respiratory Viral/Bacterial Panel-SYSTEMS TESTER Only (10/06/2024 3:12 AM EDT) [facility] Adenovirus Not Detected Not Detected 10/06/2024 11:38 PM EDT [facility] Coronavirus (229E,HKU1,NL63,OC 43) Not Detected Not Detected 10/06/2024 11:38 PM EDT [facility] SARS-CoV-2 Not Detected Not Detected 10/06/2024 11:38 PM EDT [facility] Human Metapneumovirus Not Detected Not Detected 10/06/2024 11:38 PM EDT [facility] Human Rhinovirus/Enterov irus Not Detected Not Detected 10/06/2024 11:38 PM EDT [facility] Influenza A Not Detected Not Detected 10/06/2024 11:38 PM EDT [facility] Influenza A H1 Not Detected Not Detected 10/06/2024 11:38 PM EDT [facility] Influenza A/H1-2009 Not Detected Not Detected 10/06/2024 11:38 PM EDT [facility] Influenza A H3 Not Detected Not Detected 10/06/2024 11:38 PM EDT [facility] Influenza B Not Detected Not Detected 10/06/2024 11:38 PM EDT [facility] Parainfluenza 1 Not Detected Not Detected 10/06/2024 11:38 PM EDT [facility] Parainfluenza 2 Not Detected Not Detected 10/06/2024 11:38 PM EDT [facility] Parainfluenza 3 Not Detected Not Detected 10/06/2024 11:38 PM EDT [facility] Parainfluenza 4 Not Detected Not Detected 10/06/2024 11:38 PM EDT [facility] Resp. Syncycial Virus A Not Detected Not Detected 10/06/2024 11:38 PM EDT [facility] Resp. Syncycial Virus B Not Detected Not Detected 10/06/2024 11:38 PM EDT [facility] Chlamydia pneumoniae Not Detected Not Detected 10/06/2024 11:38 PM EDT [facility] Mycoplasma pneumoniae Not Detected Not Detected 10/06/2024 11:38 PM EDT [facility] Comment: The Respiratory Viral-Bacterial Panel [...] Test results have been sent to the [facility] in accordance with state requirements. For a fact sheet for healthcare providers, see https://www.fda.gov/media/907752/download. For a fact sheet for patients, see https://www.fda.gov/media/304559/download. Nasopharyngeal Swab NASOPHARYNGEAL SWAB / Unknown 10/06/2024 3:12 AM EDT 10/06/2024 5:41 PM EDT Comment:SYSTEMS TESTER us Bisi Hernandez DO BODY FLUIDS AND STOOLS ORDERABLE S Final Result [facility] [address] [place] [address], [facility] * X-ray Portable Chest [...] at 10/06/2024 2:33 AM EDT us Bisi Hernandezana maría DO IMG DIAGNOSTIC IMAGING ORDERABLE S Final Result * Phosphatidylethanol Confirmation, B (10/06/2024 1:04 AM EDT) PETH 16:0/18.1 (POPETH) <10 Cutoff: 10 ng/mL 10/10/2024 3:11 AM EDT [facility] Comment: Phosphatidylethanol (PEth) homologues result [...] PEth Interpretation Negative. 10/10 3:11 AM EDT [facility] Comment: ADDITIONAL INFORMATION This report is intended for use in clinical monitoring and management of patients. It is not intended for use in employment-related testing. This test was developed and its performance characteristics determined by [facility] in a manner consistent with CLIA requirements. This test has not been cleared or approved by the U.S. Food and Drug Administration. Test Performed by: [facility] - [id number] [place] [address] Solar Pool Heating Installer: Kathy Ortiz Ph.D.; CLIA# [id number] Whole Blood 10/06/2024 1:04 AM EDT 10/10/2024 3:11 AM EDT us Bisi Hrenandez DO LAB BLOOD ORDERABLES Final Resul t [facility] [address] * (ABNORMAL) Acetaminophen Level (10/06/2024 1:04 AM EDT) Acetaminophen Level <10(L) 10 - 30 ug/mL 10/06/2024 2:08 AM EDT [facility] Serum 10/06/2024 1:04 AM EDT 10/06/2024 1:30 AM EDT [employer] LAB BLOOD ORDERABLES Final Resul t [facility] [address] [facility]. [address] * Ethanol, Serum (10/06/2024 1:04 AM EDT) Ethanol <10 0 - 10 mg/dL 10/06/2024 2:08 AM EDT [facility] Serum 10/06/2024 1:04 AM EDT 10/06/2024 1:30 AM EDT [employer] LAB BLOOD ORDERABLES Final Resul t Performing Organization Address City/[facility]/ZIP Co de Phone Number [facility] [address] [facility]. [address] * #2 Blood culture-Peripheral site 2 (10/06/2024 1:04 AM EDT) Culture Result No Growth After 5 Days [facility] Blood BLOOD SPECIMEN / Unknown 10/06/2024 1:04 AM EDT 10/06/2024 4:57 AM EDT Narrative [facility] - 10/11/2024 5:05 AM EDT Suboptimal volume of blood received. Interpret results with caution. [employer] MICROBIOLOGY - GENERAL ORDERABLE S Final Result [facility] [address] [facility]. [address] * #1 Blood culture-Peripheral site 1 (10/06/2024 1:04 AM EDT) Culture Result No Growth After 5 Days [facility] Blood BLOOD SPECIMEN / Unknown 10/06/2024 1:04 AM EDT 10/06/2024 4:57 AM EDT Narrative [facility] - 10/11/2024 5:01 AM EDT Suboptimal volume of blood received. Interpret results with caution. [employer] MICROBIOLOGY - GENERAL ORDERABLE S Final Result Performing Organization Address City/[facility]/ZIP Co de Phone Number [facility] [address] [facility]. [address] * Ammonia (10/06/2024 1:04 AM EDT) Ammonia 77 27 - 90 ug/dL 10/06/2024 2:00 AM EDT [facility] Plasma 10/06/2024 1:04 AM EDT 10/06/2024 1:30 AM EDT [employer] LAB BLOOD ORDERABLES Final Resul t Performing Organization Address City/[facility]/ZIP Co de Phone Number [facility] [address] [facility]. [address] * Thyroid Function [place] (10/06/2024 1:04 AM EDT) TSH 0.84 0.45 - 4.12 uIU/mL 10/06/2024 2:20 AM EDT [facility] Serum 10/06/2024 1:04 AM EDT 10/06/2024 1:39 AM EDT [employer] LAB BLOOD ORDERABLES Final Resul t Performing Organization Address City/[facility]/ZIP Co de Phone Number [facility] [address] [facility]. [address] * (ABNORMAL) Protime-INR (10/06/2024 1:04 AM EDT) Protime 22.8(H) 12.1 - 15.1 seconds 10/06/2024 1:48 AM EDT [facility] INR 1.9(H) 0.9 - 1.1 10/06/2024 1:48 AM EDT [facility] Comment: RECOMMENDED THERAPEUTIC RANGES USING INR : Stable oral anticoagulant therapy: 2.0 - 3.0 Mechanical prosthetic heart valve: 2.5 - 3.5 Recurrent acute myocardial infarction: 2.5 - 3.5 Plasma 10/06/2024 1:04 AM EDT 10/06/2024 1:30 AM EDT [employer] LAB BLOOD ORDERABLES Final Resul t Performing Organization Address [facility] Co de Phone Number [facility] [address] [facility]. [address] * Lactic Acid, STAT (10/06/2024 1:04 AM EDT) Pathologist [facility] Lactate 1.2 0.5 - 2.2 mmol/L 10/06/2024 1:59 AM EDT [facility] Plasma 10/06/2024 1:04 AM EDT 10/06/2024 1:30 AM EDT us [employer] LAB BLOOD ORDERABLES Final Resul t Performing Organization Address City/[facility] Co de Phone Number [facility] [address] [facility]. [address] * (ABNORMAL) CBC, STAT (10/06/2024 1:04 AM EDT) WBC 7.9 3.8 - 10.8 10E3/uL 10/06/2024 2:36 AM EDT [facility] RBC 2.76(L) 4.20 - 5.80 10E6/uL 10/06/2024 2:36 AM EDT [facility] Hemoglobin 9.9(L) 13.2 - 17.1 g/dL 10/06/2024 2:36 AM EDT [facility] Hematocrit 28.0(L) 38.5 - 50.0 % 10/06/2024 2:36 AM EDT [facility] MCV 101.5(H) 80.0 - 100.0 fL 10/06/2024 2:36 AM EDT [facility] MCH 35.7(H) 27.0 - 33.0 pg 10/06/2024 2:36 AM EDT [facility] MCHC 35.2 32.0 - 36.0 g/dL 10/06/2024 2:36 AM EDT [facility] RDW 17.9(H) 11.0 - 15.0 % 10/06/2024 2:36 AM EDT [facility] Platelets 58(L) 140 - 400 10E3/uL 10/06/2024 2:36 AM EDT [facility] Comment: Specimen checked for clots. None detected. Slide Reviewed for PLT Clumps. None Seen. MPV 8.2 7.5 - 11.5 fL 10/06/2024 2:36 AM EDT [facility] Whole Blood 10/06/2024 1:04 AM EDT 10/06/2024 1:31 AM EDT us Bisi Hernandez DO LAB BLOOD ORDERABLES Final Resul t [facility] [address] [place] [address], [facility] * (ABNORMAL) Comprehensive Metabolic Panel (10/06/2024 1:04 AM EDT) Sodium 127(L) 133 - 146 mmol/L 10/06/2024 2:05 AM EDT [facility] Potassium 4.5 3.5 - 5.3 mmol/L 10/06/2024 2:05 AM EDT [facility] Chloride 99 98 - 110 mmol/L 10/06/2024 2:05 AM EDT [facility] CO2 18(L) 21 - 33 mmol/L 10/06/2024 2:05 AM EDT [facility] Anion Gap 10 3 - 16 mmol/L 10/06/2024 2:05 AM EDT [facility] BUN 59(H) 7 - 25 mg/dL 10/06/2024 2:05 AM EDT [facility] Creatinine 3.54(H) 0.60 - 1.30 mg/dL 10/06/2024 2:05 AM EDT [facility] Glucose 116(H) 70 - 100 mg/dL 10/06/2024 2:05 AM EDT [facility] Calcium 9.0 8.6 - 10.3 mg/dL 10/06/2024 2:05 AM EDT [facility] Total Bilirubin 14.8(H) 0.0 - 1.5 mg/dL 10/06/2024 2:05 AM EDT [facility] AST 61(H) 13 - 39 U/L 10/06/2024 2:05 AM EDT [facility] ALT 33 7 - 52 U/L 10/06/2024 2:05 AM EDT [facility] Alkaline Phosphatase 174(H) 36 - 125 U/L 10/06/2024 2:05 AM EDT [facility] Total Protein 5.2(L) 6.4 - 8.9 g/dL 10/06/2024 2:05 AM EDT [facility] Albumin 3.3(L) 3.5 - 5.7 g/dL 10/06/2024 2:05 AM EDT [facility] Osmolality, Calculated 282 278 - 305 mOsm/kg 10/06/2024 2:05 AM EDT [facility] EGFR 21 10/06/2024 2:05 AM [...] DO LAB BLOOD ORDERABLES Final Resul t [facility] [address] [place] [address], [facility] documented in this [...] 10 mg nitroGLYCERIN in D5W injection - RADIATION CONTROL TECHNICIAN ONLY Intra-op PRN, Starting on Sun10/14/24 [...] FOR INSOMNIA 2103 (Not Given - Provider: Cehlsy Bush RN - Reason: Patient/family refused) 2032 [...] 0200 0820 (Given - Provider: Anu Wolff, ЮЛИЯ)3 (Given - Provider: Chelsy Bush RN) 0833 [...] Wolff RN)2030 (See Alternative - Provider: Soco Milton, ЮЛИЯ) [...] patient is non-communicative (CPOT 6-8), Starting on 5/27/25 at 1205 documented in this encounter Additional Health Concerns Infection Onset Date Last Indicated Resolved Time C. difficile 09/09/2024 09/09/2024 Rule Out C. difficile 10/05/2024 10/05/20242024 10:04 AM EDT Rule Out COVID-19 10/06/2024 10/06/2024 10/06/2024 11:38 PM EDT Assessment Noted Time PHQ-9 Depression Total Score: 17 025 11:00 AM EDT documented as of this encounter Care Teams Soil F[employer] Specialist Relationship Specialty Start Date End Date Enedina Mcguire NP [address] [place] [address] PCP - General Internal Medicine 10/05/24 documented as of this encounter
--- OUTSIDE RECORDS SUMMARY | 2024-10-20 09:10 | XMS_ITS | Encounter Summary ---
Author Organization [facility] Address [facility] [place] [address] Care Team Providers Care Assistant Hairstylist Name Role Phone Enedina Mcguire NP Primary Care Provider [phone] Source Comments This information has been disclosed [...] release of HIV test results or diagnoses. [id number] Encounter Details Date Type Department Care Team (Latest Contact Info) Description 10/20/2024 9:10 AM EDT - 10/20/2024 11:59 PM EDT Hospital Encounter [facility] Radiology [address] [place] [address] System, Provider Not In Arrived Discharge Disposition: [...] Recorded In the past 12 months has [employer], gas, oil, or water [employer] threatened to shut off services in your [...] any time in the past 12 m [facility], were you homeless or living in [...] AM EDT 10/17/2024 naloxone (NARCAN) 4 mg/actuation [place] Apply 1 spray in one nostril if [...] 60 capsule 08/19/2024 1:23 PM EDT 08/20/2024 ursodioL (ACTIGALL) 300 mg capsule Take 1 capsule (300 mg total) by mouth 2 times a day. 60 capsule 09/09/2024 3:56 PM EDT 09/09/2024 documented as of this encounter Plan of Treatment Upcoming Encounters Date Type Department Care Team (Late st Contact Info) Description 12/05/2024 8:01 AM EDT Hospital Encounter [facility] ENDOSCOPY [address] [place] [address] Chris Orosco MD [address] [place] [phone] 12/05/2024 8:01 AM EDT - 12/05/2024 8:31 AM EDT [facility] ENDOSCOPY [address] [place] [address] Chris Orosco MD [address] [place] [phone] EGD Scheduled Procedures Name Priority Associated Diagnoses [...] documented as of this encounter Care Teams Assistant Hairstylist Relationship Specialty Start Date End Date Enedina Mcguire NP [address] [place] [address] PCP - General Internal Medicine 10/05/24 documented as of this encounter
--- OUTSIDE RECORDS SUMMARY | 2024-10-20 09:10 | XMS_ITS | Encounter Summary ---
Author Organization [facility] Address [facility] [place] [address] Care Team Providers Care Railroad Dining Car Stewardess Name Role Phone Enedina Mcguire NP Primary Care Provider [phone] Source Comments This information has been disclosed [...] release of HIV test results or diagnoses. [id number] Encounter Details Date Type Department Care Team (Latest Contact Info) Description 10/20/2024 9:10 AM EDT - 10/20/2024 11:59 PM EDT Hospital Encounter [facility] Radiology [address] [place] [address] System, Provider Not In Arrived Discharge Disposition: [...] Recorded In the past 12 months has [employer], gas, oil, or water [employer] threatened to shut off services in your [...] AM EDT 10/17/2024 naloxone (NARCAN) 4 mg/actuation [place] Apply 1 spray in one nostril if [...] Description 12/05/2024 8:01 AM EDT Hospital Encounter [facility] ENDOSCOPY [address] [place] [address] Chris Orosco MD [address] [place] [phone] 12/05/2024 8:01 AM EDT - 12/05/2024 8:31 AM EDT Surgery [facility] ENDOSCOPY [address] [place] [address] Chris Orosco MD [address] [place] [phone] EGD Scheduled Procedures Name Priority Associated Diagnoses [...] documented as of this encounter Care Teams Railroad Dining Car Stewardess Relationship Specialty Start Date End Date Enedina Mcguire NP [address] [place] [address] PCP - General Internal Medicine 10/05/24 documented as of this encounter
--- OUTSIDE RECORDS SUMMARY | 2024-10-20 09:10 | XMS_ITS | Encounter Summary ---
Author Organization [facility] Address [facility] [place] [address] Care Team Providers Care Hairspring Truer Name Role Phone Enedina Mcguire NP Primary Care Provider [phone] Source Comments This information has been disclosed [...] release of HIV test results or diagnoses. [id number] Encounter Details Date Type Department Care Team (Latest Contact Info) Description 10/20/2024 9:10 AM EDT - 10/20/2024 11:59 PM EDT Hospital Encounter [facility] Radiology [address] [place] [address] System, Provider Not In Arrived Discharge Disposition: [...] Recorded In the past 12 months has [employer], gas, oil, or water [employer] threatened to shut off services in your [...] AM EDT 10/17/2024 naloxone (NARCAN) 4 mg/actuation [place] Apply 1 spray in one nostril if [...] Description 12/05/2024 8:01 AM EDT Hospital Encounter [facility] ENDOSCOPY [address] [place] [address] Chris Orosco MD [address] [place] [phone] 12/05/2024 8:01 AM EDT - 12/05/2024 8:31 AM EDT Surgery [facility] ENDOSCOPY [address] [place] [address] Chris Orosco MD [address] [place] [phone] EGD Scheduled Procedures Name Priority Associated Diagnoses [...] documented as of this encounter Care Teams Hairspring Truer Relationship Specialty Start Date End Date Enedina Mcguire NP [address] [place] [address] PCP - General Internal Medicine 10/05/24 documented as of this encounter
--- OUTSIDE RECORDS SUMMARY | 2024-10-20 09:10 | XMS_ITS | Encounter Summary ---
Author Organization [facility] Address [facility] [place] [address] Care Team Providers Care Commissary Assistant Name Role Phone Enedina Mcguire NP Primary Care Provider [phone] Source Comments This information has been disclosed [...] release of HIV test results or diagnoses. [id number] Encounter Details Date Type Department Care Team (Latest Contact Info) Description 10/20/2024 9:10 AM EDT - 10/20/2024 11:59 PM EDT Hospital Encounter [facility] Radiology [address] [place] [address] System, Provider Not In Arrived Discharge Disposition: [...] Recorded In the past 12 months has [employer], gas, oil, or water [employer] threatened to shut off services in your [...] AM EDT 10/17/2024 naloxone (NARCAN) 4 mg/actuation [place] Apply 1 spray in one nostril if [...] 12/05/2024 8:01 AM EDT Hospital Encounter [facility] ENDOSCOPY [address] [place] [address] Chris Orosco MD [address] [place] [phone] 12/05/2024 8:01 AM EDT - 12/05/2024 8:31 AM EDT Surgery [facility] ENDOSCOPY [address] [place] [address] Chris Orosco MD [address] [place] [phone] EGD Scheduled Procedures Name Priority Associated Diagnoses [...] documented as of this encounter Care Teams Commissary Assistant Relationship Specialty Start Date End Date Enedina Mcguire NP [address] [place] [address] PCP - General Internal Medicine 10/05/24 documented as of this encounter
--- OUTSIDE RECORDS SUMMARY | 2024-10-20 09:10 | XMS_ITS | Encounter Summary ---
Author Organization [facility] Address [facility] [place] [address] Care Team Providers Care Electrical Installer Name Role Phone Enedina Mcguire NP Primary Care Provider [phone] Source Comments This information has been disclosed [...] release of HIV test results or diagnoses. [id number] Encounter Details Date Type Department Care Team (Latest Contact Info) Description 10/20/2024 9:10 AM EDT - 10/20/2024 11:59 PM EDT Hospital Encounter [facility] Radiology [address] [place] [address] System, Provider Not In Arrived Discharge Disposition: [...] Recorded In the past 12 months has [employer], gas, oil, or water [employer] threatened to shut off services in your [...] AM EDT 10/17/2024 naloxone (NARCAN) 4 mg/actuation [place] Apply 1 spray in one nostril if [...] Description 12/05/2024 8:01 AM EDT Hospital Encounter [facility] ENDOSCOPY [address] [place] [address] Chris Orosco MD [address] [place] [phone] 12/05/2024 8:01 AM EDT - 12/05/2024 8:31 AM EDT Surgery [facility] ENDOSCOPY [address] [place] [address] Chris Orosco MD [address] [place] [phone] EGD Scheduled Procedures Name Priority Associated Diagnoses [...] as of this encounter Care Teams Electrical Installer Relationship Specialty Start Date End Date Enedina Mcguire NP [address] [place] [address] PCP - General Internal Medicine 10/05/24 documented as of this encounter
--- OUTSIDE RECORDS SUMMARY | 2024-10-20 09:10 | XMS_ITS | Encounter Summary ---
Author Organization [facility] Address [facility] [place] [address] Care Team Providers Care Alumni Relations Coordinator Name Role Phone Enedina Mcguire NP Primary Care Provider [phone] Source Comments This information has been disclosed [...] release of HIV test results or diagnoses. [id number] Encounter Details Date Type Department Care Team (Latest Contact Info) Description 10/20/2024 9:10 AM EDT - 10/20/2024 11:59 PM EDT Hospital Encounter [facility] Radiology [address] [place] [address] System, Provider Not In Arrived Discharge Disposition: [...] Recorded In the past 12 months has [employer], gas, oil, or water [email or web address] threatened to shut off services in your [...] any time in the past 12 m [facility], were you homeless or living [...] AM EDT 10/17/2024 naloxone (NARCAN) 4 mg/actuation [place] Apply 1 spray in one nostril if [...] 8:01 AM EDT Hospital Encounter [facility] ENDOSCOPY [address] [place] [address] Chris Orosco MD [address] [place] [phone] 12/05/2024 8:01 AM EDT - 12/05/2024 8:31 AM EDT Surgery [facility] ENDOSCOPY [address] [place] [address] Chris Orosco MD [address] [place] [phone] EGD Scheduled Procedures Name Priority Associated Diagnoses [...] documented as of this encounter Care Teams Alumni Relations Coordinator Relationship Specialty Start Date End Date Enedina Mcguire NP [address] [place] [address] PCP - General Internal Medicine 10/05/24 documented as of this encounter
--- OUTSIDE RECORDS SUMMARY | 2024-10-20 09:10 | XMS_ITS | Encounter Summary ---
Author Organization [facility] Address [facility] [place] [address] Care Team Providers Care Experimental Display Builder Name Role Phone Enedina Mcguire NP Primary Care Provider [phone] Source Comments This information has been disclosed [...] release of HIV test results or diagnoses. [id number] Encounter Details Date Type Department Care Team (Latest Contact Info) Description 10/20/2024 9:10 AM EDT - 10/20/2024 11:59 PM EDT Hospital Encounter [facility] Radiology [address] [place] [address] System, Provider Not In Arrived Discharge Disposition: [...] Recorded In the past 12 months has [employer], gas, oil, or water [employer] threatened to shut off services in your [...] time in the [facility] 12 m [facility], were you homeless or living [...] AM EDT 10/17/2024 naloxone (NARCAN) 4 mg/actuation [place] Apply 1 spray in one nostril if [...] Description 12/05/2024 8:01 AM EDT Hospital Encounter [facility] ENDOSCOPY [address] [place] [address] Chris Orosco MD [address] [place] [phone] 12/05/2024 8:01 AM EDT - 12/05/2024 8:31 AM EDT Surgery [facility] ENDOSCOPY [address] [place] [address] Chris Orosco MD [address] [place] [phone] EGD Scheduled Procedures Name Priority Associated Diagnoses [...] documented as of this encounter Care Teams Experimental Display Builder Relationship Specialty Start Date End Date Enedina Mcguire NP [address] [place] [address] PCP - General Internal Medicine 10/05/24 documented as of this encounter
--- NOTE | 2024-10-22 08:00 | US_ITS ---
FINAL REPORT CLINICAL HISTORY: ASCITES -- PARACENTESIS -- NARAYAN JACOME -- 3100ML -- RT SIDE FINDINGS: ULTRASOUND-GUIDED PARACENTESIS HISTORY: Ascites, cirrhosis. ATTENDING PHYSICIAN: Dr. Li PHYSICIAN SANDAL PARTS ASSEMBLER: Gladys Maynard PA-C TECHNIQUE: Informed consent was obtained from the patient. A time-out procedure was performed prior to beginning. Appropriate pocket was localized for drainage. The patient was prepped and draped in a routine sterile fashion. Local anesthesia was achieved with 1% lidocaine. Using imaging guidance with images acquired, an 18-gauge sheath needle was directed into the peritoneal fluid. Approximately 3.1 liters of clear yellow fluid was aspirated. 100 mL of fluid was sent to the lab for analysis. The patient tolerated the procedure well and left the department in good condition. Ultrasound guidance was utilized for this procedure. IMPRESSION: Successful ultrasound guided therapeutic paracentesis as above. Reviewed, Interpreted and Dictated by Donte Li MD Transcribed by Gladys Maynard PA-C Authenticated and [facility]
--- OUTSIDE RECORDS SUMMARY | 2024-10-22 08:01 | XMS_ITS | Encounter Summary ---
Author Organization [facility] Address [address] [place] [address] Care Team Providers Care Bulb Planter Name Role Phone [facility]. Donatus[facility] dixon Rohini RICKS Unavailable [phone] Enedina Mcguire APRN Primary Care Provider + [...] any clubs o r organizations such as holiness groups, unions, fraternal or athletic groups, or [...] Patient Health Questionnaire-2 Score 0 12/27/2023 [facility] - Occupational [...] drink first t deborah in the morning (EYE-SPECIAL EVENTS DIRECTOR) to steady your nerves or to [...] Description 12/01/2024 2:20 PM EDT Office Visit [facility] Nephrology, Bone & Mineral Metabolism [address], [address] [place] [address] Yovanny Curran MD [address] [place] [address] 01/08/2025 3:20 PM EDT Office Visit [facility] [address] [facility], [address] [place] [address] Vincent Braga MD [address] [facility] [address] [place] [address] documented as of this encounter Visit Diagnoses Not on filedocumented in this encounter Additional Health Concerns Assessment Noted Time A fall risk assessment has been complete d for the patient 08/25/2024 2:07 PM EDT A Body Mass Index follow-up plan has been documented for the patient 08/29/2024 9:18 AM EDT documented as of this encounter Care Teams Bulb Planter Relationship Specialty Start Date End Date Enedina Mcguire APRN [address] [place] [address] PCP - General 12/04/22 Lj Tapia APRN [address] [place] [address] Referring Physician Gastroenterology 07/18/22 documented as of this encounter
--- OUTSIDE RECORDS SUMMARY | 2024-10-22 08:01 | XMS_ITS | Encounter Summary ---
Author Organization [facility] Address [address] [place] [id number] Care Team Providers Care Leather Stitcher Name Role Phone Jony Conde MD Primary Care Provider [phone] Lj Tapia ASSEMBLY LINE WORKER Unavailable [phone] Enedina Mcguire ASSEMBLY LINE WORKER Primary Care Provider + Nuria Fall SUPERVISOR STENO [employer]OL Unavailable Unavaila ble Encounter Details Date Type Department Care Team (Late st Contact Info) Description 07/04/2022 Orders Only External Location [address] [place] [address] Presley Montes De Oca MD [address] [place] [address] Social History Tobacco Use Types Packs/Day Years [...] 12/01/2024 2:20 PM EDT Office Visit [facility] Nephrology, Bone & Mineral Metabolism [address] [facility], [address] [place] [address] Yovanny Curran MD [address] [facility] [address] [place] [address] 01/08/2025 3:20 PM EDT Office Visit [facility] [place] [address] [facility] [place] [address] Vincent Braga MD [address] [place] [address] documented as of this encounter [...] on filedocumented in this encounter Care Teams Leather Stitcher Relationship Specialty Start Date End Date Jony Conde MD [address] [place] [address] [address] [place] [address] PCP - General 07/18/22 12/03/22 Enedina Mcguire APRN [address] [place], [place] [id number] PCP - General 12/04/22 Lj Tapia APRN [address] [place] [address] Referring Physician Gastroenterology 07/18/22 Nuria Fall LPN [facility] TCM Nurse 07/24/24 08/23/24 documented as of this encounter
--- OUTSIDE RECORDS SUMMARY | 2024-10-22 08:01 | XMS_ITS | Encounter Summary ---
Author Organization Healthcare Address [address] [place] [address] Care Team Providers Care Ems Manager Name Role Phone SunnylandEdgar dixonmelanie Nova APRN Unavailable [phone] Enedina Mcguire APRN Primary Care Provider + [...] How often do you attend chur or confucianist services? Patient unable to answer 07/14/2024 Do you belong to any clubs o r organizations such as religious groups, unions, fraternal or athletic groups, or [...] Recorded Patient Health Questionnaire-2 Score 0 12/27/2023 [facility] [...] in a snf (including now)? No 11/19/2023 Housing Stability Vital [...] drink first t deborah in the morning (EYE-GROUT WORKER) to steady your nerves or to [...] Description 12/01/2024 2:20 PM EDT Office Visit [facility]ph[facility], Bone & Mineral Metabolism [address], [address] [place] [address] Yovanny Curran MD [address] [facility] [address] [place] [address] 01/08/2025 3:20 PM EDT Office Visit [facility] [address], [address] [place] [address] Vincent Braga MD [address] [facility] [facility] [address] [place] [address] documented as of this encounter Visit Diagnoses Not on filedocumented in this encounter Additional Health Concerns Assessment Noted Time A fall risk assessment has been complete d for the patient 03/19/2024 1:51 PM EST A Body Mass Index follow-up plan has been documented for the patient 07/23/2024 4:15 PM EDT documented as of this encounter Care Teams Ems Manager Relationship Specialty Start Date End Date Enedina Mcguire APRN [address] [place] [address] PCP - General 12/04/22 Lj Tapia APRN [address] [place] [address] Referring Physician Gastroenterology 07/18/22 documented as of this encounter
--- OUTSIDE RECORDS SUMMARY | 2024-10-22 08:01 | XMS_ITS | Encounter Summary ---
Author Organization [facility] Address [address] [place] [address] Care Team Providers Care Senior Quantity Surveyor Name Role Phone ReginaLj dixon Rohini RICKS Unavailable Enedina Mcguire APRN Primary [...] How often do you attend chur or zoroastrian services? Patient unable to answer 07/14/2024 Do you belong to any clubs o r organizations such as roman catholic groups, unions, fraternal or athletic groups, or [...] Patient Health Questionnaire-2 Score 2 09/29/2024 [facility] - Occupational [...] drink first t deborah in the morning (EYE-RN COMPLIANCE) to steady your nerves or to get [...] Description 12/01/2024 2:20 PM EDT Office Visit [facility] Nephrology, Bone & Mineral Metabolism [address] [facility], [address] [place] [address] Yovanny Curran MD [address] [place] [address] 01/08/2025 3:20 PM EDT Office Visit [facility] [address], [address] [place] [address] Vincent Braga MD [address] [place] [address] documented as of this encounter [...] as of this encounter Care Teams Senior Quantity Surveyor Relationship Specialty Start Date End Date Enedina Mcguire APRN [address] [place] [address] PCP - General 12/04/22 Lj Tapia APRN [address] [place] [address] Referring Physician Gastroenterology 07/18/22 documented as of this encounter
--- OUTSIDE RECORDS SUMMARY | 2024-10-22 08:01 | XMS_ITS | Encounter Summary ---
Author Organization Healthcare Address [address] [place] [address] Care Team Providers Care Sports Clerk Name Role Phone Jony Conde MD Primary Care Provider [phone] Lj Tapia EMBOSSER APPRENTICE Unavailable [phone] Enedina Mcguire EMBOSSER APPRENTICE Primary Care Provider + Nuria Fall ROCK CONTRACTOR Unavailable Unavaila ble Encounter Details Date Type Department Care Team (Late Contact Info) Description 07/02/2022 Orders Only External Location [address] [place] [id number] Provider, External Social History Tobacco Use Types [...] Metabolism [address] [place] [address] Yovanny Curran MD [address] [place] [address] 01/08/2025 3:20 PM EDT Office Visit [facility] [address] [place] [address] Vincent Braga MD [address] [place] [address] documented as of this encounter Procedures Procedure [...] on filedocumented in this encounter Care Teams Sports Clerk Relationship Specialty Start Date End Date Jony Conde MD [address] [place] [address] [address] [place] [address] PCP - General 07/18/22 12/03/22 Enedina Mcguire APRN [address] [place] [address] PCP - General 12/04/22 Lj Tapia APRN [address] [place] [address] Referring Physician Gastroenterology 07/18/22 Nuria Fall LPN [facility] TCM Nurse 07/24/24 08/23/24 documented as of this encounter
--- OUTSIDE RECORDS SUMMARY | 2024-10-22 08:01 | XMS_ITS | Encounter Summary ---
Author Organization Healthcare Address [address] [place] [address] Care Team Providers Care An Employee Sponsor Or Advocate And Name Role Phone Lj Tapia HOMICIDE SQUAD SERGEANT Unavailable [phone] Enedina Mcguire HOMICIDE SQUAD SERGEANT Primary Care Provider + Nuria Fall TRANSIT PLANNING MANAGER Unavailable Unavaila ble Encounter Details Date Type Department Care Team (Late st Contact Info) Description 07/23/2024 Telephone [facility] [address] [place] [address] Dennis Velázquez, [place] [address] Social History Tobacco Use Types Packs/Day Years [...] answer 07/14/2024 How often do you attend [facility] or adventism services? Patient unable to answer 07/14/2024 Do you belong to any clubs o r organizations such as shinto groups, unions, [employer] or athletic groups, or school groups? Patient [...] Recorded Patient Health Questionnaire-2 Score 0 12/27/2023 [facility] Questionnaire [...] place to sleep or slept in a long term (including now)? No 11/19/2023 Housing Stability Vital [...] in a long term (including now)? 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-BODY MECHANIC APPRENTICE) to steady your nerves or to get [...] Metabolism [address], [address] [place] [address] Yovanny Curran MD [address] [place] [address] 01/08/2025 3:20 PM EDT Office Visit [facility] [address], [address] [place] [address] Vincent Braga MD [address] [place] [phone] documented as of this encounter Visit Diagnoses Not on filedocumented in this encounter Additional Health Concerns Assessment Noted Time A fall risk assessment has been complete d for the patient 03/19/2024 1:51 PM EST A Body Mass Index follow-up plan has been documented for the patient 07/23/2024 4:15 PM EDT documented as of this encounter Care Teams An Employee Sponsor Or Advocate And Relationship Specialty Start Date End Date Enedina Mcguire APRN [address] [place] [address] PCP - General 12/04/22 Lj Tapia APRN [address] [place] [address] Referring Physician Gastroenterology 07/18/22 Nuria Fall LPN [facility] TCM Nurse 07/24/24 08/23/24 documented as of this encounter
--- OUTSIDE RECORDS SUMMARY | 2024-10-22 08:01 | XMS_ITS | Encounter Summary ---
Author Organization Healthcare Address [address] [place] [id number] Care Team Providers Care Weaving Teacher Name Role Phone Jony Conde MD Primary Care Provider [phone] Lj Tapia SENIOR ACCOUNT REPRESENTATIVE Unavailable [phone] Enedina Mcguire SENIOR ACCOUNT REPRESENTATIVE Primary Care Provider + Nuria Fall WATER TANKER DRIVER Unavailable Unavaila ble Encounter Details Date Type Department Care Team (Late st Contact Info) Description 07/04/2022 Orders Only External Location [address] [place] [address] Presley Montes De Oca MD [address] [place] [address] Social History Tobacco Use Types Packs/Day Years [...] 12/01/2024 2:20 PM EDT Office Visit [facility] Nephrology, Bone & Mineral Metabolism [address] [facility] [place] [address] Yovanny Curran MD [address] [facility] [address] [place] [address] 01/08/2025 3:20 PM EDT Office Visit [facility] [place] [address] [facility] [place] [address] Vincent Braga MD [address] [place] [address] documented as of this encounter [...] on filedocumented in this encounter Care Teams Weaving Teacher Relationship Specialty Start Date End Date Jony Conde MD [address] [place] [address] [address] [place] [address] PCP - General 07/18/22 12/03/22 Enedina Mcguire APRN [address] [place] [address] PCP - General 12/04/22 Lj Tapia APRN [address] [place] [address] Referring Physician Gastroenterology 07/18/22 Nuria Fall LPN [facility] TCM Nurse 07/24/24 08/23/24 documented as of this encounter
--- OUTSIDE RECORDS SUMMARY | 2024-10-22 08:01 | XMS_ITS | Encounter Summary ---
Author Organization Healthcare Address [address] [place] [id number] Care Team Providers Care City Councilman Name Role Phone Jony Conde MD Primary Care Provider [phone] Lj Tapia SPRING TESTER Unavailable [phone] Enedina Mcguire SPRING TESTER Primary Care Provider + Nuria Fall STEWARD/STEWARDESS SMOKE ROOM Unavailable Unavaila ble Encounter Details Date Type Department Care Team (Late st Contact Info) Description 07/03/2022 Orders Only External Location [address] [place] [address] Presley Montes De Oca MD [address] [place] [address] Social History Tobacco Use Types Packs/Day Years [...] 12/01/2024 2:20 PM EDT Office Visit [facility] Nephrology, Bone & Mineral Metabolism [address] [facility], [address] [place] [address] Yovanny Curran MD [address] [facility] [address] [place] [address] 01/08/2025 3:20 PM EDT Office Visit [facility] [place] [address] [facility], [address] [place] [address] Vincent Braga MD [address] [place] [address] documented as of this encounter [...] on filedocumented in this encounter Care Teams City Councilman Relationship Specialty Start Date End Date Jony Conde MD [address] [place] [address] [address] [place] [address] PCP - General 07/18/22 12/03/22 Enedina Mcguire APRN [address] [place] [address] PCP - General 12/04/22 Lj Tapia APRN [address] [place] [address] Referring Physician Gastroenterology 07/18/22 Nuria Fall LPN [facility] TCM Nurse 07/24/24 08/23/24 documented as of this encounter
--- OUTSIDE RECORDS SUMMARY | 2024-10-22 08:01 | XMS_ITS | Clinical Summary ---
Author Organization Healthcare Address [address] [place] [address] Care Team Providers Care Shift Production Associate Name Role Phone Lj Tapia Rohini RICKS Unavailable [phone] Enedina Mcguire APRN Primary Care Provider + [...] 09/29/2024 2:20 PM EDT Office Visit Professional [facility] Nephrology, Bone & Mineral Metabolism [address], [address] [place] [address] Yovanny Bob MD NADIYA (acute kidney injury) ([facility]) (Primary Dx); Portal hypertension (CMS/HCC); Secondary esophageal varices with bleeding (CMS/HCC) 09/29/2024 Travel 09/25/2024 Telephone Professional [facility] Nephrology, Bone & Mineral Metabolism [address], [address] [place] [address] Chelsy Villanueva 08/25/2024 2:20 PM EDT Office Visit Professional [facility] Nephrology, Bone & Mineral Metabolism [address], [address] [place] [address] Yovanny Bob MD NADIYA (acute kidney injury) ([facility]) (Primary Dx) 08/25/2024 Travel 08/24/2024 Travel 08/21/2024 Telephone Professional [facility] Nephrology, Bone & Mineral Metabolism [address], [address] [place] [address] Chelsy Villanueva 07/30/2024 Telephone Professional [facility] Nephrology, Bone & Mineral Metabolism [address], [address] [place] [address] Chelsy Villanueva 07/30/2024 Telephone [facility] [address], [address] [place] [address] Mandy Morales RN 07/25/2024 Orders Only [facility] [address] [place] [address] Joseph Gonzales MD 07/25/2024 Telephone Professional [facility] Nephrology, Bone & Mineral Metabolism [address], [address] [place] [address] Chelsy Villanueva 07/24/2024 Telephone Professional [facility] Nephrology, Bone & Mineral Metabolism [address], [address] [place] [address] Chelsy Villanueva 07/24/2024 Patient Outreach [facility] [address], [address] [place] [address] Nuria Fall, VERONICA TCM Call 07/24/2024 Telephone [facility] Nephrology, Bone & Mineral Metabolism [address], [address] [place] [address] Yovanny Bob MD HCN - Patient Message 07/23/2024 Telephone [facility] [address] [place] [address] Dennis Velázquez, PharmD 07/22/2024 Telephone [facility] [address], [address] [place] [address] Mandy oMrales RN from Last 3 Months Immunizations Immunization [...] Recorded Patient Health Questionnaire-2 Score 2 09/29/2024 [facility] - Occupational Stress Questionnaire Answer Date [...] place to sleep or slept in a chcf (including now)? No 11/19/2023 PHQ-9 Answer Date [...] living in a chcf (including now)? 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-DIRECTOR OF PRODUCT DESIGN) to steady your nerves or to get [...] 12/01/2024 2:20 PM EDT Office Visit Professional [facility] Nephrology, Bone & Mineral Metabolism [address] [place] [address] Yovanny Curran MD [address] [place] [address] 01/08/2025 3:20 PM EDT Office Visit [facility] [address], [address] [place] [address] Vincent Braga MD [address] [place] [address] Health Maintenance Due Date Last [...] 2 - 13+ 2-dose series) 10/11/2010 09/13/2010 [id number] Vaccine (4 - 2023- season) 2024 03/17/2021, [...] this topic Medical Devices Implanted Type Area Watch Crystal Molder Device Identifier Shelf Expiration Date Model / Serial / Lot Concerto [place] Coil-07/03/2022 Implanted:06/15 by Timmy Brunner MD (Quantity not on file) Coil Abdomen Description:Multiple Coil Co ncerto Pgla [place] Detach COILS implanted on 07/03/2022 by Timmy Brunner MD at [facility]--info can be found in Care Everywhere for [facility] as of 11/15/23 Dona Coil-07/03/2022 Implanted:06/15 by Timmy Brunner MD (Quantity not on file) Coil Abdomen [employer] Description:Coil Emb Dona 3.7/Implanted: Qty: 1 on 07/03/2022 by Timmy Brunner MD at [facility] Plate Plate N/A: Neck Plug Vasc Anton Emb Amplatzer Implanted:06/15 by Timmy Brunner MD (Quantity not on file) Plug Other Vein / / [id number] Description:Plug Vasc Anton Em b Ampltz .027 [id number] - [id number] Implanted: Qty: 1 on 07/03/2022 by Timmy Brunner MD at [facility] Stent Gastro Panc 5fr 5cm - [id number] Implanted:Qty: 1 on 11/20/2023 by Devang Mcghee RN at [facility] Pancreas [employer]-[id number] 08/13/2026 [id number] / / [id number] Procedures Procedure Name Priority Date/Time Associated Diagnosis [...] W/O DIFFERENTIAL Routine 07/22/2024 2:29 AM EDT HEPATITIS C ANTIBODY W/REFLEX TO HCV QUANT PCR STAT 07/14/2024 4:31 PM EST HIV 1/2 ANTIBODY/ANTIGEN SCREEN WITH REFLEX TO HIV I/II DIFFERENTIATION STAT 07/14/2024 4:31 PM EST from Last 3 Months or Most Recently Relevant to Health Maintenance Results * (ABNORMAL) Prothrombin Time/INR (07/23/2024 2:32 AM EDT) Only the most recent of2 resultswithin the time period is included. Prothrombin Time 19.2(H) 12.0 - 14.3 sec 07/23/2024 2:57 AM EDT HEALTHCARE LAB INR 1.6(H) 0.9 - 1.1 07/23/2024 2:57 AM EDT [facility] Blood Venous blood specimen / Unknown Venipuncture / Unknown 07/23/2024 2:32 AM EDT 07/23/2024 2:45 AM EDT [facility] HEALTHCARE LAB - 07/23/2024 2:57 AM EDT OPTIMAL INR RANGES FOR PATIENT ON ORAL ANTICOAGULANT THERAPY Prevention of venous thromboembolism INR 2.0 to 3.0 In patients with heart disease: Atrial fibrillation INR 2.0 to 3.0 Valvular heart disease INR 2.0 to 3.0 Tissue heart valves INR 2.0 to 3.0 Mechanical prosthetic valves INR 2.5 to 3.5 Prevention of recurrent VT INR 2.5 to 3.5 us Joseph Gonzales MD LAB BLOOD ORDERABLES Final Resu lt [facility] [address] [place] [address] * (ABNORMAL) CBC and Differential (07/23/2024 2:32 AM EDT) WBC Count 7.89 3.70 - 10.30 10*3/uL LAB HEMATOLOGY METHOD 07/23/2024 3:00 AM EDT [facility] RBC Count 4.07(L) 4.60 - 6.10 10*6/uL LAB HEMATOLOGY METHOD 07/23/2024 3:00 AM EDT [facility] HGB 13.3(L) 13.7 - 17.5 g/dL LAB HEMATOLOGY METHOD 07/23/2024 3:00 AM EDT [facility] HCT 37.7(L) 40.0 - 51.0 % LAB HEMATOLOGY METHOD 07/23/2024 3:00 AM EDT [facility] Platelet Count 69(L) 155 - 369 10*3/uL LAB HEMATOLOGY METHOD 07/23/2024 3:00 AM EDT [facility] MCV 93 79 - 98 fL LAB HEMATOLOGY METHOD 07/23/2024 3:00 AM EDT [facility] MCH 32.7(H) 26.0 - 32.0 pg LAB HEMATOLOGY METHOD 07/23/2024 3:00 AM EDT [facility] MCHC 35.3 30.7 - 35.5 g/dL LAB HEMATOLOGY METHOD 07/23/2024 3:00 AM EDT [facility] RDW 23.7(H) 11.5 - 14.5 % LAB HEMATOLOGY METHOD 07/23/2024 3:00 AM EDT [facility] MPV LAB HEMATOLOGY METHOD 07/23/2024 3:00 AM EDT [facility] Comment:Not Measured nRBC 0.0 <=0.0 per 100 WBCs LAB HEMATOLOGY METHOD 07/23[facility]2024 [facility] Differential Type Automated LAB HEMATOLOGY METHOD 07/23/2024 3:00 AM EDT [facility] Neutrophils % 79 % LAB HEMATOLOGY METHOD 07/23/2024 3:00 AM EDT [facility] Lymphocytes % 10 % LAB HEMATOLOGY METHOD 07/23/2024 3:00 AM EDT [facility] Monocytes % 8 % LAB HEMATOLOGY METHOD 07/23/2024 3:00 AM EDT [facility] Eosinophils % 1 % LAB HEMATOLOGY METHOD 07/23/2024 3:00 AM EDT [facility] Basophils % 1 % LAB HEMATOLOGY METHOD 07/23/2024 3:00 AM EDT [facility] Immature Granulocytes % 1 % LAB HEMATOLOGY METHOD 07/23/2024 3:00 AM EDT [facility] Neutrophils Absolute 6.19(H) 1.60 - 6.10 10*3/uL LAB HEMATOLOGY METHOD 07/23/2024 3:00 AM EDT [facility] Lymphocytes Absolute 0.80(L) 1.20 - 3.90 10*3/uL LAB HEMATOLOGY METHOD 07/23/2024 3:00 AM EDT [facility] Monocytes Absolute 0.66 0.30 - 0.90 10*3/uL LAB HEMATOLOGY METHOD 07/23/2024 3:00 AM EDT HEALTHCARE LAB Eosinophils Absolute 0.10 0.00 - 0.50 10*3/uL LAB HEMATOLOGY METHOD 07/23/2024 3:00 AM EDT [facility] Basophils Absolute 0.10 0.00 - 0.10 10*3/uL LAB HEMATOLOGY METHOD 07/23/2024 3:00 AM EDT [facility] Immature Granulocytes Absolute 0.04 0.00 - 0.06 10*3/uL LAB HEMATOLOGY METHOD 07/23/2024 3:00 AM EDT [facility] Blood Venous blood specimen / Unknown Venipuncture / Unknown 07/23/2024 2:32 AM EDT 07/23/2024 2:45 AM EDT Narrative HEALTHCARE LAB - 07/23/2024 3:00 AM EDT Therapeutic decision making should be based on absolute values, rather than percentages. Joseph Gonzales MD LAB BLOOD ORDERABLES Final Resu lt [facility] [address] [place] [address] * (ABNORMAL) Comprehensive metabolic panel (07/23/2024 2:32 AM EDT) Only the most recent of2 resultswithin the time period is included. Glucose, Plasma 143(H) 74 - 99 mg/dL 07/23/2024 3:20 AM EDT HEALTHCARE LAB [...] - 1.20 mg/dL 07/23/2024 3:20 AM EDT HEALTHCARE LAB Comment: Icteric specimen. Result may be falsely decreased. Interpret result in the context of the patient's condition and other laboratory results. BUN/Creatinine Ratio 19 07/23/2024 3:20 AM EDT [facility] Sodium, Plasma 133(L) 136 - 145 mmol/L 07/23/2024 3:20 AM EDT [facility] Comment: Icteric specimen. Result may be affected, interpret result in the context of the patient's condition and other laboratory results. Potassium, Plasma 3.3(L) 3.6 - 4.9 mmol/L 07/23/2024 3:20 AM EDT [facility] Comment: Icteric specimen. Result may be affected, interpret result in the context of the patient's condition and other laboratory results. Chloride, Plasma 104 97 - 107 mmol/L 07/23/2024 3:20 AM EDT [facility] Comment: Icteric specimen. Result may be affected, interpret result in the context of the patient's condition and other laboratory results. CO2, Plasma 16(L) 22 - 29 mmol/L 07/23/2024 3:20 AM T [facility] Comment: Icteric specimen. Result may be affected, interpret result in the context of the patient's condition and other laboratory results. Anion Gap 13 6 - 16 mmol/L 07/23/2024 3:20 AM EDT [facility] Total Calcium, Plasma 9.0 8.9 - 10.2 mg/dL 07/23/2024 3:20 AM EDT [facility] Comment: Icteric specimen. Result may be affected, interpret result in the context of the patient's condition and other laboratory results. Total Protein 5.2(L) 6.3 - 7.9 g/dL 07/23/2024 3:20 AM T [facility] Comment: Icteric specimen. Result may be affected, interpret result in the context of the patient's condition and other laboratory results. Albumin, Plasma 3.8 3.5 - 5.2 g/dL 07/23/2024 3:20 AM EDT [facility] Comment: Icteric specimen. Result may be affected, interpret result in the context of the patient's condition and other laboratory results. AST, Plasma 106(H) 10 - 50 U/L 07/23/2024 3:20 AM EDT [facility] Comment: Icteric specimen. Result may be affected, interpret result in the context of the patient's condition and other laboratory results. ALT, Plasma 64(H) 10 - 50 U/L 07/23/2024 3:20 AM EDT [facility]ALTH[facility]ARE [facility] Comment: Icteric specimen. Result may be affected, interpret result in the context of the patient's condition and other laboratory results. Alkaline Phosphatase, Plasma 98 40 - 115 U/L 07/23/2024 3:20 AM EDT [facility]ALTH[facility]ARE [facility] Comment: Icteric specimen. Result may be affected, interpret result in the context of the patient's condition and other laboratory results. Total Bilirubin, Plasma 48.8(H) 0.2 - 1.1 mg/dL 07/23/2024 3:20 AM EDT [facility]ARE LAB eGFRcr 57.8 mL/min/1.7 3m*2 07/23/2024 3:20 AM EDT [facility] Comment:Reported eGFRcr in m L/min/1.73m2 is based the CKD-EPI 2020 equation that does not use a race coefficient. Blood Venous blood specimen / Unknown Venipuncture / Unknown 07/23/2024 2:32 AM EDT 07/23/2024 2:45 AM EDT us Joseph Gonzales MD LAB BLOOD ORDERABLES Final Resu lt [facility] [address] [place] [address] * (ABNORMAL) POCT glucose meter (07/22/2024 12:10 PM EDT) POCT Glucose 120(H) 74 - 99 mg/dL 07/22/2024 12:12 PM EDT [facility]ARE [facility] Comment:Accuracy of a glucos e [...] Comment 07/22/2024 12:12 PM EDT HEALTH[facility]ARE [facility] Algology Teacher ID Cristo Palacio 12:12 PM EDT [facility] Device ID [id number] 07/22/2024 12:12 PM EDT HEALTH[facility]ARE LAB Specimen Type POC Capillary 07/22/2024 12:12 PM EDT [facility] Blood Capillary blood specimen / Unknown 07/22/2024 12:10 PM EDT 07/22/2024 12:12 PM EDT Joseph Gonzales MD LAB POINT OF CARE TE ST DOCKED DEVICE UNSOLICITED RESULTS Final Result [facility] [address] [place] [address] * (ABNORMAL) CBC W/O Differential (07/22/2024 2:29 AM EDT) WBC Count 8.64 3.70 - 10.30 10*3/uL LAB HEMATOLOGY METHOD 07/22/2024 3:15 AM EDT [facility] RBC Count 4.44(L) 4.60 - 6.10 10*6/uL LAB HEMATOLOGY METHOD 07/22/2024 3:15 AM EDT [facility] HGB 14.5 13.7 - 17.5 g/dL LAB HEMATOLOGY METHOD 07/22/2024 3:15 AM EDT [facility] HCT 42.5 40.0 - 51.0 % LAB HEMATOLOGY METHOD 07/22/2024 3:15 AM EDT [facility] Platelet Count 71(L) 155 - 369 10*3/uL LAB HEMATOLOGY METHOD 07/22/2024 3:15 AM EDT [facility] MCV 96 79 - 98 fL LAB HEMATOLOGY METHOD 07/22/2024 3:15 AM EDT [facility] MCH 32.7(H) 26.0 - 32.0 pg LAB HEMATOLOGY METHOD 07/22/2024 3:15 AM EDT [facility] MCHC 34.1 30.7 - 35.5 g/dL LAB HEMATOLOGY METHOD 07/22/2024 3:15 AM EDT [facility] RDW 24.0(H) 11.5 - 14.5 % LAB HEMATOLOGY METHOD 07/22/2024 3:15 AM EDT [facility] MPV 10.5 8.8 - 12.5 fL LAB HEMATOLOGY METHOD 07/22/2024 3:15 AM EDT [facility] nRBC 0.0 <=0.0 per 100 WBCs LAB HEMATOLOGY METHOD 07/22/2024 3:15 AM EDT [facility] Blood Venous blood specimen / Unknown Venipuncture / Unknown 07/22/2024 2:29 AM EDT 07/22/2024 3:03 AM EDT Mita Schmidt MD LAB BLOOD ORDERABLES Final Resul t [facility] [address] [place] [address] * HIV 1 & 2 Antibody/Antigen Screen (07/14/2024 4:31 PM EST) [facility] HIV 1 & 2 Antibody/Antigen Screen Non Reactive Non Reactive 07/14/2024 5:31 PM EST [facility] Comment:Screening for HIV 1 & 2 antibodies, and P24 antigen is NONREACTIVE. No confirmatory testing is required. Blood Venous blood specimen / Unknown Venipuncture / Unknown 07/14/2024 4:31 PM EST 07/14/2024 4:56 PM EST Laureano Salinas APRN, [facility] LAB BLOOD ORDERA BLES Final Result Performing Organization Address City/[facility]/ZIP Co de Phone Number [facility] [address] [place] [address] * Hepatitis C Antibody (07/14/2024 4:31 PM EST) [facility] Hepatitis C Antibody Negative Negative 07/14/2024 5:27 PM EST [facility] Blood Venous blood specimen / Unknown Venipuncture / Unknown 07/14/2024 4:31 PM EST 07/14/2024 4:54 PM EST Laureano Salinas APRN, [facility] BLOOD ORDERA BLES Final Result Performing Organization Address City/[facility] Co de Phone Number [facility] [address] [place] [address] from Last 3 Months or Most Recently Relevant to Health Maintenance Insurance [facility] Advance Directives * Full Code (Latest Code Status on File) Date Activated Date Inactivated Comments 07/11/2024 11:04 PM 07/23/2024 6:27 PM Question Answer Comments Patient has decision-making capacity? Yes * Full Code Date Activated Date Inactivated Comments 11/14/2023 10:15 PM 11/27/2023 9:08 PM Question Answer Comments Patient has decision-making capacity? Yes Care Teams Shift Production Associate Relationship Specialty Start Date End Date Enedina Mcguire APRN [address] [place], [place] [id number] PCP - General 12/04/22 Lj Tapia APRN [facility] [place] [address] Referring Physician Gastroenterology 07/18/22
--- OUTSIDE RECORDS SUMMARY | 2024-10-22 08:01 | XMS_ITS ---
Author Organization [facility] Address [address] [place] [address] Care Team Providers Care Carton Forming Machine Adjuster Name Role Phone Lj Tapia APRN Unavailable [phone] Enedina Mcguire APRN Primary Care Provider + Transitional Care Management Status:Closed (Closed) Start date:07/24/2024 Enrollment date:07/24/2024 Enrollment reason:Identified using hospital discharge data End date:08/23/2024 Close reason:Patient graduated Overview This episode type is for outpatient care managers enrolling patients in the [facility] Transitional Care Management program. Continued Care and Services Coordination
--- OUTSIDE RECORDS SUMMARY | 2024-10-22 08:01 | XMS_ITS | Encounter Summary ---
Author Organization Healthcare Address [address] [place] [address] Care Team Providers Care Yarn Spooler Name Role Phone Regina, Lj Nova APRN Unavailable Enedina Mcguire APRN Primary Care Provider + Encounter Details Date Type Department Care Team ([facility] st Contact Info) Description 09/25/2024 Telephone [facility] Nephrology, Bone & Mineral Metabolism [address], [address] [place] [address] Chelsy Villanueva Social History Tobacco [...] often do you attend chur ch or episcopalian services? Patient unable to answer 07/14/2024 Do you belong to any clubs o r organizations such as buddhist groups, unions, fraternal or athletic groups, or [...] Recorded Patient Health Questionnaire-2 Score 2 09/29/[address] [facility] - Occupational Stress Questionnaire Answer Date [...] a care home (including now)? No 11/19/2023 PHQ-9 Answer Date [...] drink first t deborah in the morning (EYE-NAIL TECHNICIAN TEACHER) to steady your nerves or to get [...] Several days 09/29/2024 1:47 PM EDT Janice Byrant Feeling down, depressed, or hopeless Several days [...] 10:35 AM EDT Lab order faxed to [facility] at [phone] * Telephone Encounter - Shelby Rush - 09/30/2024 10:16 AM EDT Clinical Concern/Question Reason for Call: Per [facility] please fax patient's lab order to: [phone] Best contact number: Other: [phone] Optimal time of day to reach caller: [...] Description 12/01/2024 2:20 PM EDT Office Visit [facility] Nephrology, Bone & Mineral Metabolism [address], [address] [place] [address] Yovanny Curran MD [address] [place] [address] 01/08/2025 3:20 PM EDT Office Visit [facility] [address], [address] [place] [address] Vincent Braga MD [address] [place] [address] documented as of this encounter Visit Diagnoses Not on filedocumented in this encounter Additional Health Concerns Assessment Noted Time A fall risk assessment has been complete d for the patient 08/25/2024 2:07 PM EDT A Body Mass Index follow-up plan has been documented for the patient 08/29/2024 9:18 AM EDT documented as of this encounter Care Teams Yarn Spooler Relationship Specialty Start Date End Date Enedina Mcguire APRN [address] [place] [address] PCP - General 12/04/22 Lj Tapia APRN [address] [place] [address] Referring Physician Gastroenterology 07/18/22 documented as of this encounter
--- OUTSIDE RECORDS SUMMARY | 2024-10-22 08:02 | XMS_ITS | Encounter Summary ---
Author Organization [facility] Address [address] [place] [address] Care Team Providers Care Lieutenant Shift Supervisor Name Role Phone Enedina Mcguire NP Primary Care Provider [phone] Source Comments This information has been disclosed [...] release of HIV test results or diagnoses. [id number] Reason for Visit * Reason Comments Medication Management Requesting RX for New Medication Encounter Details Date Type Department Care Team (Late st Contact Info) Description 10/21/2024 Telephone [facility] Office [address] [place] [phone] Gerri Peterson MD [address] [place] [address] Medication Management (Requesting RX for New Medication ) Social History Tobacco Use Types Packs/Day Years Used Date Smoking Tobacco: Former Cigarettes Smokeless Tobacco: Current Alcohol Use Standard Drinks/Week Comments Yes 0 (1 standard drink = 0.6 oz pure alcohol) History of alcohol abuse, reports no use in 3 week- typically endorses use as 4 glasses of wine a days Utilities Answer Date Recorded In the past 12 months has [employer], gas, oil, or water [email or web address] threatened to shut off services in your [...] Telephone Encounter - Yomaira Saenz MA - 10/21/2024 4:23 PM EDT Pt returned call states he answered but fell asleep. Pt expressed understanding * Telephone Encounter - Flor Pyle MA - 10/21/2024 11:40 AM EDT Pt called. States he was discharged from [facility] on 10/17 with instructions to contact PCP to start Rx Torsemide 20 mg one tablet a day. PCP is out of town and was advised by manager of tax in office to contact gastro MD to obtain Rx. Pt states he is retaining 30 pounds of fluid and needs MD to send a prescription or return call dali. Pt can be reached at [phone] documented in this encounter Plan of Treatment Upcoming Encounters Date Type Department Care Team (Late st Contact Info) Description 12/05/2024 8:01 AM EDT Hospital Encounter [facility] ENDOSCOPY [address] [place] [id number] Chris Orosco MD [address] [place] [phone] 12/05/2024 8:01 AM EDT - 12/05/2024 8:31 AM EDT Surgery [facility] ENDOSCOPY [address] [place] [id number] Chris Orosco MD [address] [place] [phone] EGD Scheduled Procedures Name Priority Associated Diagnoses Date/Ti va EGD Cirrhosis of liver with ascites, unspecified hepatic cirrhosis type ([facility]) 12/05/2024 8:01 AM EDT documented as of this encounter Visit Diagnoses Not on filedocumented in this encounter Additional Health Concerns Infection Onset Date Last Indicated Resolved Time C. difficile 09/09/2024 09/09/2024 Assessment Noted Time PHQ-9 Depression Total Score: 17 025 11:00 AM EDT documented as of this encounter Care Teams Lieutenant Shift Supervisor Relationship Specialty Start Date End Date Enedina Mcguire NP [address] [place] [address] PCP - General Internal Medicine 10/05/24 documented as of this encounter
--- OUTSIDE RECORDS SUMMARY | 2024-10-22 08:02 | XMS_ITS | Encounter Summary ---
Author Organization [facility] Address [facility] [place] [address] Care Team Providers Care Clinical Audiologist Name Role Phone Enedina Mcguire NP Primary Care Provider [phone] Source Comments This information has been disclosed [...] release of HIV test results or diagnoses. [id number] Health Encounter Details Date Type Department Care Team (Late st Contact Info) Description 10/20/2024 Orders Only [facility] [address] [place] [address] Abdulkadir Gaspar MD [address] [facility] [address] [facility] [place] [address] Social History Tobacco Use Types Packs/Day Years Used Date Smoking Tobacco: Former Cigarettes Smokeless Tobacco: Current Alcohol Use Standard Drinks/Week Comments Yes 0 (1 standard drink = 0.6 oz pure alcohol) History of alcohol abuse, reports no use in 3 week- typically endorses use as 4 glasses of wine a days Utilities Answer Date Recorded In the past 12 months has [employer], gas, oil, or water company threatened to [...] Hospital Encounter [facility] ENDOSCOPY [address] [place] [address] Chris Orosco MD [address] [place] [phone] 12/05/2024 8:01 AM EDT - 12/05/2024 8:31 AM EDT Surgery [facility] ENDOSCOPY [address] [place] [phone] Chris Orosco MD [address] [place] [phone] EGD Scheduled Procedures Name Priority Associated Diagnoses Date/Ti me EGD Cirrhosis of liver with ascites, unspecified hepatic cirrhosis type ([facility]) 12/05/2024 8:01 AM EDT documented [...] MD LAB BLOOD ORDERABLES Final Resul t [facility] [address] [place] [address] * [facility]ox - ABO Typing Report (10/20/2024 5:03 PM EDT) 10/20/2024 5:03 PM EDT Abdulkadir Gaspar MD LAB BLOOD ORDERABLES Final Resul t [facility] [address] [place] [address] documented in this encounter Visit Diagnoses Not on filedocumented in this encounter Additional Health Concerns Infection Onset Date Last Indicated Resolved Time C. difficile 09/09/2024 09/09/2024 Assessment Noted Time PHQ-9 Depression Total Score: 17 025 11:00 AM EDT documented as of this encounter Care Teams Clinical Audiologist Relationship Specialty Start Date End Date Enedina Mcguire NP [address] [place] [address] PCP - General Internal Medicine 10/05/24 documented as of this encounter
--- OUTSIDE RECORDS SUMMARY | 2024-10-22 08:02 | XMS_ITS | Encounter Summary ---
Author Organization [facility] Address [address] [place] [address] Care Team Providers Care Integrity Director Name Role Phone Enedina Mcguire NP Primary Care Provider [phone] Source Comments This information has been disclosed [...] release of HIV test results or diagnoses. [id number] Reason for Visit * Reason Comments Medication Refill Refill Request 1st A ttempt Encounter Details Date Type Department Care Team (Late st Contact Info) Description 10/20/2024 Refill [facility] Gastroenterology at [facility] Office [address] [place] [phone] Gerri Peterson MD [address] [place] [address] Social History Tobacco Use Types Packs/Day Years Used Date Smoking Tobacco: Former Cigarettes Smokeless Tobacco: Current Alcohol Use Standard Drinks/Week Comments Yes 0 (1 standard drink = 0.6 oz pure alcohol) History of alcohol abuse, reports no use in 3 week- typically endorses use as 4 glasses of wine a days Utilities Answer Date Recorded In the past 12 months has [employer], gas, oil, or water [employer] threatened to shut off services in your [...] any time in the past 12 [facility], were you homeless or living in [...] today. PHARMACY & PHONE #: [facility] [address] [place], [place] [id number] [address] [address] DATE OF LAST APPT: 09/02/2024 Gerri Peterson MD DATE OF NEXT APPT: 12/02/2024 GI/LIVER FELLOW 4 documented in this encounter Plan of Treatment Upcoming Encounters Date Type Department Care Team (Late st Contact Info) Description 12/05/2024 8:01 AM EDT Hospital Encounter [facility] ENDOSCOPY [address] [place] [phone] Chris Orosco MD [address] [place] [phone] 12/05/2024 8:01 AM EDT - 12/05/2024 8:31 AM EDT Surgery [facility] ENDOSCOPY [address] [place] [phone] Chris Orosco MD [address] [place] [address] EGD Scheduled Procedures Name Priority Associated Diagnoses Date/Ti ca EGD Cirrhosis of liver with ascites, unspecified hepatic cirrhosis type ([facility]) 12/05/2024 8:01 AM EDT documented as of this encounter Visit Diagnoses Not on filedocumented in this encounter Additional Health Concerns Infection Onset Date Last Indicated Resolved Time C. difficile 09/09/2024 09/09/2024 Assessment Noted Time PHQ-9 Depression Total Score: 17 025 11:00 AM EDT documented as of this encounter Care Teams Integrity Director Relationship Specialty Start Date End Date Enedina Mcguire NP [address] [place] [address] PCP - General Internal Medicine 10/05/24 documented as of this encounter
--- OUTSIDE RECORDS SUMMARY | 2024-10-22 08:02 | XMS_ITS | Encounter Summary ---
Author Organization [facility] Address [address] [place] [address] Care Team Providers Care Cable Inspector Name Role Phone Enedina Mcguire NP Primary Care Provider [phone] Source Comments This information has been disclosed [...] release of HIV test results or diagnoses. [id number] Encounter Details Date Type Department Care Team (Late st Contact Info) Description 10/20/[address] [facility] Liver Transplant at [address] [address] Mary Butler, RN Social History Tobacco Use [...] Recorded In the past 12 months has [employer], gas, oil, or water [employer] threatened to shut off services in [...] Hep C donors. He'll also go to [facility] later today vs tomorrow morning for follow up MELD labs that I'll need in order to list him. All questions answered at this time. Lab orders faxed to [facility] at [phone] and emailed to patient. documented in this encounter Plan of Treatment Upcoming Encounters Date Type Department Care Team (Late st Contact Info) Description 12/05/2024 8:01 AM EDT Hospital Encounter [facility] ENDOSCOPY [address] [place] [address] Chris Orosco MD [address] [place] [phone] 12/05/2024 8:01 AM EDT - 12/05/2024 8:31 AM EDT Surgery [facility] ENDOSCOPY [address] [place] [address] Chris Orosco MD [address] [place] [phone] EGD Scheduled Orders Name Type Priority Associated [...] documented as of this encounter Care Teams Cable Inspector Relationship Specialty Start Date End Date Enedina Mcguire NP [address] [place] [address] PCP - General Internal Medicine 10/05/24 documented as of this encounter
--- OUTSIDE RECORDS SUMMARY | 2024-10-22 08:02 | XMS_ITS | Encounter Summary ---
Author Organization [facility] Address [address] [place] [address] Care Team Providers Care Obgyn Specialist Name Role Phone Enedina Mcguire NP Primary Care Provider [phone] Source Comments This information has been disclosed [...] release of HIV test results or diagnoses. [id number] Encounter Details Date Type Department Care Team (Late st Contact Info) Description 10/17/2024 Pharmacy Services [facility] [address] [place] [phone] Qu, Ridge, RPh Social History Tobacco [...] Recorded In the past 12 months has [employer], gas, oil, or water company threatened to [...] this encounter Progress Notes * Ridge Menjivar, [facility] - 10/17/2024 9:47 AM EDT Julien Anderson [...] member, friend, or other person (including a boat officer). The at-risk individual reports no known [...] Hospital Encounter [facility] ENDOSCOPY [address] [place] [phone] Chris Orosco MD [address] [place] [phone] 12/05/2024 8:01 AM EDT - 12/05/2024 8:31 AM EDT Surgery [facility] ENDOSCOPY [address] [place] [phone] Chris Orosco MD [address] [place] [phone] EGD Scheduled Procedures Name Priority Associated Diagnoses Date/Ti hi EGD Cirrhosis of liver with ascites, unspecified hepatic cirrhosis type ([facility]) 12/05/2024 8:01 AM EDT documented as of this encounter Visit Diagnoses Not on filedocumented in this encounter Additional Health Concerns Infection Onset Date Last Indicated Resolved Time C. difficile 09/09/2024 09/09/2024 Assessment Noted Time PHQ-9 Depression Total Score: 17 025 11:00 AM EDT documented as of this encounter Care Teams Obgyn Specialist Relationship Specialty Start Date End Date Enedina Mcguire NP [address] [place] [address] PCP - General Internal Medicine 10/05/24 documented as of this encounter
--- OUTSIDE RECORDS SUMMARY | 2024-10-22 08:02 | XMS_ITS | Encounter Summary ---
Author Organization [facility] Address [address] [place] [address] Care Team Providers Care Delinquent Notice Machine Operator Name Role Phone Enedina Mcguire NP Primary Care Provider [phone] Source Comments This information has been disclosed [...] release of HIV test results or diagnoses. [id number] Encounter Details Date Type Department Care Team (Late st Contact Info) Description 10/17/2024 Chart Note [facility] Kidney Transplant at [address] [place] [phone] Anny Cote RN Social History Tobacco Use [...] Recorded In the past 12 months has [email or web address], gas, oil, or water [email or web address] threatened to shut off services in your [...] 8:01 AM EDT Hospital Encounter [facility] ENDOSCOPY [address] [place] [address] Chris Orosco MD [address] [place] [phone] 12/05/2024 8:01 AM EDT - 12/05/2024 8:31 AM EDT Surgery [facility] ENDOSCOPY [address] [place] [address] Chris Orosco MD [address] [place] [phone] EGD Scheduled Procedures Name Priority Associated Diagnoses Date/Ti me EGD Cirrhosis of liver with ascites, unspecified hepatic cirrhosis type ([facility]) 12/05/2024 8:01 AM EDT documented as of this encounter Visit Diagnoses Not on filedocumented in this encounter Additional Health Concerns Infection Onset Date Last Indicated Resolved Time C. difficile 09/09/2024 09/09/2024 Assessment Noted Time PHQ-9 Depression Total Score: 17 025 11:00 AM EDT documented as of this encounter Care Teams Delinquent Notice Machine Operator Relationship Specialty Start Date End Date Enedina Mcguire NP [address] [place] [address] PCP - General Internal Medicine 10/05/24 documented as of this encounter
--- OUTSIDE RECORDS SUMMARY | 2024-10-22 08:02 | XMS_ITS | Encounter Summary ---
Author Organization [facility] Address [address] [place] [address] Care Team Providers Care Window Display Designer Name Role Phone Enedina Mcguire NP Primary Care Provider [phone] Source Comments This information has been disclosed [...] release of HIV test results or diagnoses. [id number] Reason for Visit * Reason Comments Prescription Issue RX Clarification Req uest Encounter Details Date Type Department Care Team (Late st Contact Info) Description 10/20/2024 Telephone [facility] Gastroenterology at [facility] Office [address] [place] [phone] Gerri Peterson MD [address] [place] [address] Prescription Issue (RX Clarification Request [...] Recorded In the past 12 months has [employer], gas, oil, or water [employer] threatened to shut off services in your [...] Telephone Encounter - Ingrid Galvez RN - 10/21/2024 1:06 PM EDT RN called the pharmacy to clarify that pt should continue Cipro and Xifaxan and rational/need * Telephone Encounter - Yomaira Saenz MA - 10/20/2024 4:17 PM EDT Tech called requesting clarification on the following RX: RX: ciprofloxacin HCl (CIPRO) 500 MG tablet rifAXIMin (XIFAXAN) 550 mg Tab tablet Clarification needed: Clarifying that both are to be filled Please return call to [phone]. documented in this encounter Plan of Treatment Upcoming Encounters Date Type Department Care Team (Late st Contact Info) Description 12/05/2024 8:01 AM EDT Hospital Encounter [facility] ENDOSCOPY [address] [place] [phone] Chris Orosco MD [address] [place] [phone] 12/05/2024 8:01 AM EDT - 12/05/2024 8:31 AM EDT Surgery [facility] ENDOSCOPY [address] [place] [phone] Chris Orosco MD [address] [place] [phone] EGD Scheduled Procedures Name Priority Associated Diagnoses [...] documented as of this encounter Care Teams Window Display Designer Relationship Specialty Start Date End Date Enedina Mcguire NP [address] [place] [address] PCP - General Internal Medicine 10/05/24 documented as of this encounter
--- OUTSIDE RECORDS SUMMARY | 2024-10-22 08:02 | XMS_ITS | Encounter Summary ---
Author Organization [facility] Address [address] [place] [address] Care Team Providers Care Customer Experience Leader Name Role Phone Enedina Mcguire NP Primary Care Provider [phone] Source Comments This information has been disclosed [...] release of HIV test results or diagnoses. [id number] Reason for Visit * Reason Comments Medication Refill Refill Request 1st A ttempt Encounter Details Date Type Department Care Team (Late st Contact Info) Description 10/21/2024 Refill [facility] G[facility] at [facility] Office [address] [place] [phone] Gerri Peterson MD [address] [place] [address] Social History Tobacco Use Types Packs/Day Years Used Date Smoking Tobacco: Former Cigarettes Smokeless Tobacco: Current Alcohol Use Standard Drinks/Week Comments Yes 0 (1 standard drink = 0.6 oz pure alcohol) History of alcohol abuse, reports no use in 3 week- typically endorses use as 4 glasses of wine a days Utilities Answer Date Recorded In the past 12 months has [employer], gas, oil, or water [employer] threatened to shut off services in your [...] Telephone Encounter - Bita Mccracken MA - 10/21/2024 12:22 PM EDT Last OV:09/02/2024 Next OV:scheduled at with GI provider Last Labs:10/20/2024 Last refill: Comment: * Telephone Encounter - Tamar Blackwood - 10/21/2024 11:13 AM EDT Along with the Ursodiol refill request Julien asked to obtain refill on pain medication Oxycodone 5 mg, 1 tablet every 6 hours as needed documented in this encounter Plan of Treatment Upcoming Encounters Date Type Department Care Team (Late st Contact Info) Description 12/05/2024 8:01 AM EDT Hospital Encounter [facility] ENDOSCOPY [address] [place] [phone] Chris Orosco MD [address] [place] [phone] 12/05/2024 8:01 AM EDT - 12/05/2024 8:31 AM EDT Surgery [facility] ENDOSCOPY [address] [place] [address] Chris Orosco MD [address] [place] [phone] EGD Scheduled Procedures Name Priority Associated Diagnoses [...] as of this encounter Care Teams Customer Experience Leader Relationship Specialty Start Date End Date Enedina Mcguire NP [address] [place] [address] PCP - General Internal Medicine 10/05/24 documented as of this encounter
--- OUTSIDE RECORDS SUMMARY | 2024-10-22 08:02 | XMS_ITS | Encounter Summary ---
Author Organization [facility] Address [address] [place] [address] Care Team Providers Care Laboratory Miller Name Role Phone Enedina Mcguire NP Primary Care Provider [phone] Source Comments This information has been disclosed [...] release of HIV test results or diagnoses. [id number] Encounter Details Date Type Department Care Team (Late st Contact Info) Description 10/17/2024 Chart Note [facility] Kidney Transplant at [address] [place] [phone] Anny Cote, RN Copy of HLA [...] In the past 12 months has e [employer], gas, oil, or water [employer] threatened to shut off services in your [...] any time in the past 12 m [facility], were you homeless or living [...] Description 12/05/2024 8:01 AM EDT Hospital Encounter [facility] ENDOSCOPY [address] [place] [address] Chris Orosco MD [address] [place] [phone] 12/05/2024 8:01 AM EDT - 12/05/2024 8:31 AM EDT Surgery [facility] ENDOSCOPY [address] [place] [address] Chris Orosco MD [address] [place] [phone] EGD Scheduled Procedures Name Priority Associated Diagnoses [...] documented as of this encounter Care Teams Laboratory Miller Relationship Specialty Start Date End Date Enedina Mcguire NP [address] [place] [phone] PCP - General Internal Medicine 10/05/24 documented as of this encounter
--- OUTSIDE RECORDS SUMMARY | 2024-10-22 08:03 | XMS_ITS | Clinical Summary ---
Author Organization [facility] Address [facility] [place] [address] Care Team Providers Care Sawyer Cork Slabs Name Role Phone Enedina Mcguire NP Primary Care Provider [phone] Source Comments This information has been disclosed [...] therelease of HIV test results or diagnoses. [id number] Allergies Active Allergy Reactions Criticality Noted Date [...] mouth daily. 60 tablet 2 5 Active thiamine HCl (VITAMIN B-1) 100 [...] EDT 5 Active naloxone (NARCAN) 4 mg/actuation [place] Apply 1 spray in one nostril if [...] by mouth daily. 30 tablet 5 Active ursodioL (ACTIGALL) 300 mg capsule Take 1 capsule (300 mg total) by mouth 2 times a day. 60 capsule 5 Active traMADoL (ULTRAM) 50 mg tablet [...] 5 10/21/19 25 Discontinu ed(Refill / Reorder) ursodioL (ACTIGALL) 300 mg capsule Take 1 capsule (300 mg total) by mouth 2 times a day. 60 capsule 09/09/2024 3:56 PM EDT 5 10/22/19 25 Discontinu ed(Refill / Reorder) oxyCODONE (ROXICODONE) [...] with SBP, s/p CTX x5d; will cont senior living ppx with Cipro 500mg daily - HE: [...] Acute kidney injury superimposed on CKD 07/26/19 Assessment & Plan (09/08/2024 9:51 AM EDT): [...] Encounters Date Type Department Care Team Description 10/21/2024 Telephone [facility] Gastroenterology at [facility] Office [address] [place] [address] Gerri Peterson MD Medication Management (Requesting RX for New Medication ) 10/21/2024 Refill [facility] Gastroenterology at [facility] [address] [place] [address] Gerri Peterson MD 10/20/2024 9:10 AM EDT - 10/20/2024 11:59 PM EDT Hospital Encounter [facility] Radiology [address] [place] [address] System, Provider Not In Arrived Discharge Disposition: Home or Self Care WITHOUT Home Care Services 10/20/2024 9:10 AM EDT - 10/20/2024 11:59 PM EDT Hospital Encounter [facility] Radiology [address] [place] [address] System, Provider Not In Arrived Discharge Disposition: Home or Self Care WITHOUT Home Care Services 10/20/2024 9:10 AM EDT - 10/20/2024 11:59 PM EDT Hospital Encounter [facility] Radiology [address] [place] [address] System, Provider Not In Arrived Discharge Disposition: Home or Self Care WITHOUT Home Care Services 10/20/2024 9:10 AM EDT - 10/20/2024 11:59 PM EDT Hospital Encounter [facility] Radiology [address] [place] [address] System, Provider Not In Arrived Discharge Disposition: Home or Self Care WITHOUT Home Care Services 10/20/2024 9:10 AM EDT - 10/20/2024 11:59 PM EDT Hospital Encounter [facility] Radiology [address] [place] [address] System, Provider Not In Arrived Discharge Disposition: Home or Self Care WITHOUT Home Care Services 10/20/2024 9:10 AM EDT - 10/20/2024 11:59 PM EDT Hospital Encounter [facility] Radiology [address] [place] [address] System, Provider Not In Arrived Discharge Disposition: Home or Self Care WITHOUT Home Care Services 10/20/2024 9:10 AM EDT - 10/20/2024 11:59 PM EDT Hospital Encounter [facility] Radiology [address] [place] [address] System, Provider Not In Arrived Discharge Disposition: Home or Self Care WITHOUT Home Care Services 10/20/2024 Orders Only [facility] Pancreas Transplant at [facility] [address] [place] [address] Abdulkadir Gaspar MD 10/20/2024 Telephone [facility] Gastroenterology at [facility] Office [address] [facility] [address] [place] [address] Gerri Peterson MD Prescription Issue (RX Clarification Request ) 10/20/2024 Refill [facility] Gastroenterology at [facility] Office [address] [facility] [address] [place] [address] Gerri Peterson MD 10/20/2024 Telephone [facility] Liver Transplant at [address] [place] [address] Mary Butler, ЮЛИЯ 10/17/2024 Chart Note [facility] Kidney Transplant at [address] [place] [address] Anny Cote, RN Copy of HLA report scanned into the media tab. Will follow up on GFR 10/17/2024 Chart Note [facility] Kidney Transplant at [address] [place] [address] Anny Cote, RN 10/17/2024 Pharmacy Services [facility] [address] [place] [address] Ridge Menjivar RPh 10/14/2024 8:42 AM EDT - 10/14/2024 9:27 AM EDT Surgery [facility] Cardiac Director Of Corporate Sponsorships [address] [place] [address] Irving Matta MD Left Heart Cath 10/14/2024 Chart Note [facility] Kidney Transplant at [address] [address] Dean Robles [facility] [address] 10/10/2024 12:01 PM EDT Anesthesia Event [facility] ENDOSCOPY [address] [place] [phone] Cady Bhat MD Nguyen, Quinn, MD 10/10/2024 10:36 AM EDT - 10/10/2024 11:06 AM EDT Surgery [facility] ENDOSCOPY [address] [place] [address] Lino Soto MD EGD 10/09/2024 Social Work [facility] Liver Transplant at [address] [address] Kaylin Willard MSW 10/09/2024 Chart Note [facility] Kidney Transplant at [address] [address] Dean Robles [facility] [address] call from Elle [facility] fx [phone] 10/09/2024 Chart Note [facility] Kidney Transplant at [address] [address] Dean Robles [facility] [address] 10/07/2024 Chart Note [facility] Liver Transplant at [address] [address] Mary Butler, ЮЛИЯ Spoke with Blair Anderson today for 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 Message to nephrology 10/07/2024 Chart Note [facility] Kidney Transplant at [address] [address] Chey Nicole MA This MA received new referral for PT. Raul NICHOLAS once financially cleared. 10/07/2024 Chart Note [facility] Kidney Transplant at [address] [address] Anny Cote RN Simultaneous Liver-Kidney Transplant Referral 10/06/2024 Travel 10/05/2024 11:12 PM EDT - 10/17/2024 10:29 AM EDT Hospital Encounter [facility] 8E [address] [place] [address] Gómez Blanchard MD Wood, Sharice N, MD [...] Care WITHOUT Home Care Services 10/05/2024 Telephone [facility] PATIENT SERVICES [address] [place] [address] Unknown, Attending Provider After Hours Call 10/01/2024 Telephone [facility] Liver Transplant at [place] [address] [facility] [address] [place] [phone] Armand Salinas RN 09/30/2024 Social Work [facility] Liver Transplant at [place] [address] [facility] [address] [place] [phone] Kaylin Willard MSW 09/29/2024 11:00 AM EDT Office Visit [facility] Psychiatry Transplant at [place] [address] [facility] [address] [place] [address] Lizeth Warren PsyD PTSD (post-traumatic stress disorder) (Primary Dx); Alcohol use disorder 09/26/2024 Abstract [facility] Gastroenterology at [facility] [address] [place] [address] Gerri Peterson MD 09/25/2024 11:25 AM EDT [facility] [address] [place] [address] Gerri Peterson MD Cirrhosis of liver with ascites, unspecified hepatic cirrhosis type (CMS-HCC); Pre-transplant evaluation for chronic liver disease; Alcoholic cirrhosis of liver without ascites (CMS-HCC) 09/25/2024 Social Work [facility] Liver Transplant at [address] [place] [address] Kaylin Willard MSW 09/25/2024 Telephone [facility] Interventional Radiology [address] [place] [address] Thad De Leon Appointment 09/25/2024 Orders Only [facility] Liver Transplant at [address] [place] [address] Mary Butler RN Pre-transplant evaluation for chronic liver disease (Primary Dx); Alcoholic cirrhosis of liver without ascites (CMS-HCC) 09/24/2024 Orders Only [facility] Gastroenterology at [facility] [address] [place] [phone] Gerri Peterson MD Cirrhosis of liver with ascites, unspecified hepatic cirrhosis type (CMS-HCC) (Primary Dx) 09/24/2024 Orders Only [facility] Gastroenterology at [facility] [address] [place] [phone] Gerri Peterson MD Cirrhosis of liver with ascites, unspecified hepatic cirrhosis type (CMS-HCC) (Primary Dx) 09/23/2024 Telephone [facility] Gastroenterology at [facility] [address] [place] [phone] Gerri Peterson MD Orders (Order Clarification Request/) 09/22/2024 Telephone [facility] Gastroenterology at [facility] [address] [place] [phone] Gerri Peterson MD Orders (Order Clarification Request ) 09/17/2024 Telephone [facility] Liver Transplant at [address] [place] [address] Kaylin Willard, NUBIA 09/17/2024 Abstract [facility] Gastroenterology at [facility] [address] [facility] [address] [place] [phone] Gerri Peterson MD 09/17/2024 Telephone [facility] Liver Transplant at [address] [place] [phone] Kaylin Willard, DERMATOLOGY TEACHER 09/16/2024 Telephone [facility] Gastroenterology at [facility] [address] [facility] [address] [place] [phone] Gerri Peterson MD Medical Management (Plan of Care Inquiry/Question ) 09/10/2024 Telephone [facility] Liver Transplant at [address] [place] [phone] Kaylin Willard, DERMATOLOGY TEACHER 09/05/2024 Orders Only [facility] Gastroenterology at [facility] [address] [facility] [address] [place] [phone] Chris Orosco MD Cirrhosis of liver with ascites, unspecified hepatic cirrhosis type (CMS-HCC) (Primary Dx) 09/05/2024 Travel 09/03/2024 4:56 AM EDT - 09/09/2024 6:25 PM EDT Hospital Encounter [facility] [address] [place] [phone] Ana Maria Ramey MD Zackary, Joseph, MD Morgenlander, Adam M, MD Liebler, Hillary, MD Stickles, Allison Michele, MD Alcoholic cirrhosis of liver with ascites (CMS-HCC) (Primary Dx); Abdominal pain, unspecified abdominal location; NAIDYA (acute kidney injury) (CMS-HCC) [N17.9] Discharge Disposition: Home or Self Care WITHOUT Home Care Services 09/03/2024 Telephone [facility] Interventional Radiology [address] [place] [phone] Thad De Leon Appointment 09/02/2024 4:00 PM EDT [facility] [address] [place] [phone] Doron Botello MD Alcoholic cirrhosis of liver without ascites (CMS-HCC); Cirrhosis of liver with ascites, unspecified hepatic cirrhosis type (CMS-HCC) 09/02/2024 2:40 PM EDT Office Visit [facility] Gastroenterology at [facility] [address] [place] [phone] Gerri Peterson MD Cirrhosis of liver with ascites, unspecified hepatic cirrhosis type (CMS-HCC) (Primary Dx); Alcoholic cirrhosis of liver without ascites (CMS-HCC) 09/02/2024 Orders Only [facility] [address] [place], [place] [phone] Noé Giordano MD Hypokalemia (Primary Dx) 09/02/2024 Telephone [facility] PATIENT SERVICES [address] [place], [place] [phone] Unknown, Attending Provider After Hours Call 09/02/2024 Orders Only [facility] Liver Transplant at [facility] [place] [facility] [address] [facility] [address] [place] [phone] Mary Butler, RN Pre-transplant evaluation for chronic liver disease (Primary Dx); Alcoholic cirrhosis of liver without ascites (CMS-HCC) 09/02/2024 Telephone [facility] Gastroenterology at [facility] [address] [place] [phone] Gerri Peterson MD Orders (Order Request (New) ) 09/02/2024 Telephone [facility] Gastroenterology at [facility] [address] [facility] [address] [place] [address] Chris Orosco MD 08/20/2024 Telephone [facility] Liver Transplant at [address] [place] [phone] Madan WillardenzNUBIA moses 08/15/2024 Chart Note [facility] Kidney Transplant at [address] [place] [address] Dean Robles [facility] [address] 08/13/2024 Chart Note [facility] Liver Transplant at [address] [place] [phone] Mary Butler, RN Outpatient liver transplant referral received from Dr Maza. Referral 08/12/2024 6:12 PM EDT - 08/19/2024 12:56 PM EDT Hospital Encounter [facility] [address]E [address] [place] [phone] [place], MD Jf [...] - 07/29/2024 2:12 PM EDT Hospital Encounter [facility] 7NW [address] [place] [address] Melissa Zuleta MD Krause, Julie A, MD Martinez, Luisito Treviño MD Jaundice (Primary Dx); Alcoholic cirrhosis of liver without ascites (CMS-HCC) Discharge Disposition: Home or Self Care WITHOUT Home Care Services 07/25/2024 Travel 07/24/2024 Telephone [facility] Liver Transplant at [facility] [place] [facility] [address] [facility] [address] [place] [address] Chinedu Steve MA from Last 3 Months [...] the past 12 months has th e [employer], gas, oil, or water company threatened to [...] 12/05/2024 8:01 AM EDT Hospital Encounter [facility] ENDOSCOPY [address] [place] [phone] Chris Orosco MD [address] [place] [phone] 12/05/2024 8:01 AM EDT - 12/05/2024 8:31 AM EDT Surgery [facility] ENDOSCOPY [address] [place] [address] Chris Orosco MD [address] [place] [address] EGD Scheduled Procedures Name Priority [...] HOX - ABO TYPING REPORT Routine 10/21/19 25 5:03 PM EDT XR COMPARISON IMAGES Routine [...] AM EDT URINE DRUG CONFIRMATION Routine 10/08/19 25 10:50 PM EDT URINE DRUG SCREEN REFLEX [...] LIPID PANEL Routine 10/07/2024 6:37 PM EDT [id number] (AAT) QUANTITATION & MUTATION Routine 10/07/2024 6:37 [...] 10/07/2024 3 :48 PM EDT US DUPLEX [id number] COMPLETE Routine 10/07/2024 3:48 PM EDT CARISA [...] 10/06/2024 4:01 AM EDT UPPER RESPIRATORY VIRAL/BACTERIAL PANEL-MANAGER CONTRACTING ONLY Routine 10/06/2024 3:12 AM EDT XR [...] STAT 09/03/2024 10:30 AM EDT US DUPLEX [id number] COMPLETE STAT 09/03/2024 10:30 AM EDT URINALYSIS, [...] 08/13/2024 3 :03 PM EDT US DUPLEX [id number] COMPLETE Routine 08/13/2024 3:03 PM EDT CENTRAL [...] - SCAN 08/14/19 25 12:26 AM EDT CBC STAT 08/13/2024 12:08 [...] 07/29/2024 8: 54 AM EDT US DUPLEX [id number] COMPLETE Routine 07/29/2024 8:54 AM EDT SODIUM, [...] 5:04 PM EDT) 10/20/2024 5:04 PM EDT Abdulkadir Gaspar MD LAB BLOOD ORDERABLES Final Resul t Performing Organization Address [facility] de Phone Number [facility] [address] [place] [address] * Hox - ABO Typing Report (10/20/2024 5:03 PM EDT) 10/20/2024 5:03 PM EDT Abdulkadir Gaspar MD LAB BLOOD ORDERABLES Final Resul t Performing Organization Address [facility] de Phone Number [facility] [address] [place] [address] * X-ray Comparison Images (10/20/2024 9:10 AM EDT) Only the most recent of7 resultswithin the time period is included. Narrative EXTERNAL - 10/20/2024 9:10 AM EDT Images associated with this accession number were presented to us for comparison to an examination performed here. us Provider Not In System IMG DIAGNOSTIC IMAGING OR DERABLES Final Result Performing Organization Address [facility] de Phone Number EXTERNAL * Blood Transfusion - scan (10/18/2024 3:03 PM EDT) us Scanning Uchhim SCAN DOCS - NO RESULTS Final Res ult * (ABNORMAL) Renal Function Panel w/EGFR (10/17/2024 5:48 AM EDT) Only the most recent of49 resultswithin the time period is included. Sodium 133 133 - 146 mmol/L 10/17/2024 7:02 AM EDT [facility] Potassium 3.4(L) 3.5 - 5.3 mmol/L 10/17/2024 7:02 AM EDT [facility] Chloride 104 98 - 110 mmol/L 10/17/2024 7:02 AM EDT [facility] CO2 18(L) 21 - 33 mmol/L 10/17/2024 7:02 AM EDT [facility] Anion Gap 11 3 - 16 mmol/L 10/17/2024 7:02 AM EDT [facility] BUN 54(H) 7 - 25 mg/dL 10/17/2024 7:02 AM EDT [facility] Creatinine 2.88(H) 0.60 - 1.30 mg/dL 10/17/2024 7:02 AM EDT [facility] Glucose 127(H) 70 - 100 mg/dL 10/17/2024 7:02 AM EDT [facility] Calcium 8.2(L) 8.6 - 10.3 mg/dL 10/17/2024 7:02 AM EDT [facility] Phosphorus 4.5 2.1 - 4.7 mg/dL 10/17/2024 7:02 AM EDT [facility] Albumin 3.1(L) 3.5 - 5.7 g/dL 10/17/2024 7:02 AM EDT [facility] Osmolality, Calculated 292 278 - 305 mOsm/kg 10/17/2024 7:02 AM EDT [facility] EGFR 27 10/17/2024 7:02 AM EDT [facility] Comment:As of 2021, the estimated [...] [facility]/ZIP Co de Phone Number [facility] [address] [facility]. [address] * (ABNORMAL) Hepatic Function Panel (10/16/2024 6:31 AM EDT) Only the most recent of34 resultswithin the time period is included. Total Bilirubin 7.6(H) 0.0 - 1.5 mg/dL 10/16/2024 7:24 AM EDT [facility] Bilirubin, Direct 3.97(H) 0.00 - 0.40 mg/dL 10/16/2024 7:24 AM EDT [facility] AST 45(H) 13 - 39 U/L 10/16/2024 7:24 AM EDT [facility] ALT 23 7 - 52 U/L 10/16/2024 7:24 AM EDT [facility] Alkaline Phosphatase 137(H) 36 - 125 U/L 10/16/2024 7:24 AM EDT [facility] Total Protein 5.1(L) 6.4 - 8.9 g/dL 10/16/2024 7:24 AM EDT [facility] Albumin 3.4(L) 3.5 - 5.7 g/dL 10/16/2024 7:24 AM EDT [facility] Bilirubin, Indirect 3.63(H) 0.00 - 1.10 mg/dL 10/16/2024 7:24 AM EDT [facility] Plasma 10/16/2024 6:31 AM EDT 10/16/2024 6:56 AM EDT us Kush Posada MD, PhD LAB BLOOD ORDERABLES Final Result Performing Organization Address City/[facility]/ZIP Co de Phone Number [facility] [address] [facility]. [address] * (ABNORMAL) Protime-INR (10/16/2024 6:31 AM [...] MD, PhD LAB BLOOD ORDERABLES Final Result [facility] [address] * (ABNORMAL) CBC (10/16/2024 6:31 AM EDT) Only the most recent of43 resultswithin the time period is included. WBC 5.8 3.8 - 10.8 10E3/uL 10/16/2024 8:00 AM EDT [facility] RBC 2.16(L) 4.20 - 5.80 10E6/uL 10/16/2024 8:00 AM EDT [facility] Hemoglobin 7.7(L) 13.2 - 17.1 g/dL 10/16/2024 8:00 AM EDT [facility] Hematocrit 22.1(L) 38.5 - 50.0 % 10/16/2024 8:00 AM EDT [facility] MCV 102.3(H) 80.0 - 100.0 fL 10/16/2024 8:00 AM EDT [facility] MCH 35.7(H) 27.0 - 33.0 pg 10/16/2024 8:00 AM EDT [facility] MCHC 34.9 32.0 - 36.0 g/dL 10/16/2024 8:00 AM EDT [facility] RDW 17.7(H) 11.0 - 15.0 % 10/16/2024 8:00 AM EDT [facility] Platelets 43(L) 140 - 400 10E3/uL 10/16/2024 8:00 AM EDT [facility] Comment: Specimen checked for clots. None detected. Slide Reviewed for PLT Clumps. None Seen. Platelet Estimate Decreased 10/16/2024 8:00 AM EDT [facility] MPV 8.6 7.5 - 11.5 fL 10/16/2024 8:00 AM EDT [facility] Whole Blood 10/16/2024 6:31 AM EDT 10/16/2024 6:57 AM EDT Narrative [facility] - 10/16/2024 8:00 AM EDT Peripheral blood smear was scanned per review criteria approved by the laboratory medical staff assistant. Kush Posada MD, PhD LAB BLOOD ORDERABLES Final Result [facility] [address] [facility]. [address] * Magnesium (10/16/2024 6:31 AM EDT) Only the most recent of50 resultswithin the time period is included. Magnesium 2.1 1.5 - 2.5 mg/dL 10/16/2024 7:24 AM EDT [facility] Plasma 10/16/2024 6:31 AM EDT 10/16/2024 6:56 AM EDT us Kush Posada MD, PhD LAB BLOOD ORDERABLES Final Result [facility] [address] [facility]. [address] * CARISA Rhythm Strip - Scan (10/15/2024 8:02 PM EDT) Only the most recent of12 resultswithin the time period is included. us Scanning Uchhim SCAN DOCS - NO RESULTS Final Res ult * Prepare Platelets, leukoreduced, 1 Units (10/15/2024 6:16 AM EDT) Only the most recent of2 resultswithin the time period is included. Product Code F9299Y77 [facility] Unit Number [id number] [facility] Dispense Status Presumed Transfused_PT [facility] Blood Expiration Date [id number] [facility] Coding System [id number] [facility] Blood Bank Product us Eleazar Nguyễn MD BLOOD BANK PRODUCT ORDE RABLES Final Result [facility] * Prepare Fresh Frozen Plasma, 1 Units (10/15/2024 6:15 AM EDT) Product Code X7221K61 [facility] Unit Number [id number] [facility] Dispense Status Presumed Transfused_PT [facility] Blood Expiration Date [id number] [facility] Coding System [id number] [facility] Blood Bank Product Eleazar Nguyễn MD BLOOD BANK PRODUCT ORDE RABJOSE R Final Result [facility] * PRA-HLA Ab Screen (Cytotoxic) (10/15/2024 6:08 AM EDT) Pathologist [facility] The request and specimen(s) for this test have been received and transported to the [facility] at [address] [place] [address]. The [facility] will report results directly to the client. 10/15/2024 6:42 AM EDT HEALTH LAB Comment:The request and spec imen(s) for this test have been received and transported to the [facility] at [address] [place] [address]. The [facility] will report results directly to the client. Serum 10/15/2024 6:08 AM EDT 10/15/2024 6:42 AM EDT us Cosmo Pacheco MD LAB BLOOD ORDERABLES Final Resul t [facility] [address] [facility]. [address] * LEFT HEART CATH (10/14/2024 2:09 PM EDT) 10/14/2024 11:4 7 AM EDT Narrative [facility] - 10/14/2024 9:27 PM EDT *[facility]* Cardiac Director Of Corporate Sponsorships [address] [address] CATHETERIZATION LAB STUDY Patient: Blair Anderson Age: [...] manner. 3. Right radial artery access. A [id number] Glidesheath - Slender - .021 sheath was [...] + + !LV pressure s/d, ed !, dP/yr=8971oj Hg/s! + + + !Aortic pressure s/d (m)!106/58 (75) ! + + + ATTESTATION: Dr. Matta was present for the entire procedure. Dr. Jay Quan was the initial author of this report. Prepared and electronically signed by Irving Matta MD [id number] Procedure Note Irving Matta MD - 10/14/2024 *[facility]* Cardiac Director Of Corporate Sponsorships [address] [place], [place] [address] CATHETERIZATION LAB STUDY Patient: Blair Anderson Age: [...] manner. 3. Right radial artery access. A 4Tf91qf Glidesheath - Slender - .021sheath was advanced [...] complications. Contrast: Omnipaque 350 25ml (total dose). [id number] 125ml (wasted). Radiation: Fluoroscopy time: 15min. Total [...] + !LV pressure s/d, ed !112/, 22, dP/vj=2245eo Hg/s! + + + !Aortic pressure s/d (m)!106/58 (75) ! + + + ATTESTATION: Dr. Matta was present for the entire procedure. Dr. Jay Quan wasthe initial author of this report. Prepared and electronically signed by Irving Matta MD [id number] [place] [id number] Final Result Performing Organization Address [facility] de Phone Number RADNET * Transfuse Fresh Frozen Plasma Transfusion Rate: Per dept routine (10/14/2024 2:08 PM EDT) Eleazar Nguyễn MD NURSING TREATMENT ORDER PAL - BLOOD ADMIN Final Result Performing Organization Address [facility] de Phone Number EXTERNAL * Transfuse Platelets Transfusion Rate: Per dept routine (10/14/2024 12:43 PM EDT) Only the most recent of2 resultswithin the time period is included. Eleazar Nguyễn MD NURSING TREATMENT ORDER PAL - BLOOD ADMIN Final Result Performing Organization Address [facility] de Phone Number EXTERNAL * ABO/Rh (10/14/2024 8:21 AM EDT) Only the most recent of5 resultswithin the time period is included. ABO Grouping O 10/14/2024 8:55 AM EDT [facility] Rh Type Positive 10/14/2024 8:55 AM EDT [facility] Blood 10/14/2024 8:21 AM EDT 10/14/2024 8:33 AM EDT us Eleazar Nguyễn MD BLOOD BANK TEST ORDERAB LES Final Result [facility] [address] * Antibody Screen (10/14/2024 8:21 AM EDT) Only the most recent of3 resultswithin the time period is included. [facility] Signature Antibody Screen Negative 10/14/2024 9:11 AM EDT [facility] Blood 10/14/2024 8:21 AM EDT 10/14/2024 8:33 AM EDT Narrative [facility] - 10/14/2024 9:26 AM EDT Testing performed by [facility] Transfusion Service us Eleazar Nguyễn MD BLOOD BANK TEST ORDERAB LES Final Result Performing Organization Address City/[facility]/ZIP Co de Phone Number [facility] [address] * Cardiac Cath Documents Scan (10/14/2024 [...] mL of GADOBUTROL 1 MMOL/ML INTRAVENOUS SYRINGE ([facility]) administered intravenously COMPARISON: CT 09/03/2024. [...] acute or suspicious osseous findings. Procedure Note lAberto Rodriguez MD - 10/14/2024 EXAM: MRI ABDOMEN W AND WO CONTRAST CLINICAL INDICATION: Liver lesion, < 1cm, chronic liver disease TECHNIQUE: Multisequence, multiplanar MR imaging of the abdomen with andwithout contrast. CONTRAST: 10 mL of GADOBUTROL 1 MMOL/ML INTRAVENOUS SYRINGE ([facility])administered intravenously COMPARISON: CT 09/03/2024. Ultrasound 10/07/2024. Outside [...] PM EDT us Kush Posada MD, PhD [facility] MRI ORDERABLES Fi nal Result * (ABNORMAL) Ammonia (10/13/2024 5:35 AM EDT) Only the most recent of9 resultswithin the time period is included. Ammonia 203(HH) 27 - 90 ug/dL 10/13/2024 7:16 AM EDT [facility] Comment: HEMOLYSIS EVIDENT. RESULTS MAY BE INFLUENCED. Critical Result [id number] Called to and read back by: KEY MELO RN at: 10/13/2024 07:15:55 by:NISREEN Plasma 10/13/2024 5:35 AM EDT 10/13/2024 6:19 AM EDT us Ellis Mays DO LAB BLOOD ORDERABLES Final Resul t Performing Organization Address [facility] Co de Phone Number [facility] [address] [facility]. [address] * Vancomycin, random (10/11/2024 3:02 AM EDT) Only the most recent of5 resultswithin the time period is included. Vancomycin Random 13.4 ug/mL 10/11/2024 3:37 AM EDT [facility] Comment:Reference range not established for this test. Plasma 10/11/2024 3:02 AM EDT 10/11/2024 3:08 AM EDT us Jodi FreireD LAB BLOOD ORDERABLES Final Result Performing Organization Address City/[facility] Co de Phone Number [facility] [address] [facility]. [address] * IR Paracentesis incl imaging guide [...] diagnostic and therapeutic paracentesis. Bakari Wahl CNP, Driving Instructor Procedure and Findings: The procedure was performed [...] for diagnostic andtherapeutic paracentesis. Bakari Wahl CNP, Driving Instructor Procedure and Findings: The procedure was performed [...] Using ultrasound guidance, a 10 cm, 5-F [facility] Centesis catheter was placedinto the right lower [...] Wahl CNP at 10/10/2024 3:31 PM EDT Jani Vanegas MD IMG IR ORDERABLES Final Result * Stress Testing Lab - scan (10/10/2024 3:08 PM EDT) us Scanning Uchhi SCAN DOCS - NO RESULTS Final Res ult * Body Fluid Culture plus Stain (10/10/2024 1:51 PM EDT) Only the most recent of5 resultswithin the time period is included. Gram Stain Result Cytospin Results: [facility] Gram Stain Result Polymorphonuclear Leukocytes Seen; [facility] Gram Stain Result No Organisms Seen; [facility] Culture Result No Growth After 5 Days [facility] Fluid ABDOMEN / Unknown 10/10/2024 1:51 PM EDT 10/10/2024 3:56 PM EDT Gerri Peterson MD MICROBIOLOGY - GENERAL ORDERABL ES Final Result Performing Organization Address [facility] Co de Phone Number [facility] [address] [facility]. [address] * (ABNORMAL) Body fluid cell count (10/10/2024 1:51 PM EDT) Only the most recent of5 resultswithin the time period is included. Color, Fluid Yellow(A) Colorless, Pale Yellow 10/10/2024 5:29 PM EDT [facility] Clarity, Fluid Clear 10/10/2024 5:29 PM EDT [facility] Neutrophil %, Fluid 9 % 10/10/2024 5:29 PM EDT [facility] Lymphocytes %, Fluid 13 % 10/10/2024 5:29 PM EDT [facility] Mesothelial %, Fluid 6 % 10/10/2024 5:29 PM EDT [facility] Macrophage %, Fluid 72 % 10/10/2024 5:29 PM EDT [facility] RBC, Fluid 2,662 /uL 10/10/2024 4:41 PM EDT [facility] Total Nucleated Cells, Fluid 89 /uL 10/10/2024 4:41 PM EDT [facility] Comment:Total Nucleated Cell s represent WBCs and other nucleated cells in the fluid such as lining cells. Ascitic Fluid ABDOMEN / Unknown 1:51 PM EDT 10/10/2024 3:56 PM EDT Gerri Peterson MD BODY FLUIDS AND STOOLS ORDERABL ES Final Result Performing Organization Address City/[facility]/ZIP Co de Phone Number [facility] [address] * UPPER GI ENDOSCOPY (10/10/2024 11:48 AM EDT) 10/10/2024 11:4 8 AM EDT Narrative [facility] - 10/10/2024 12:34 PM EDT [id number] Procedure Date: 10/10/2024 11:48 AM Patient Name: Blair Anderson Date of : 1985 Admit Type: Inpatient Age: 39 Gender: Male Note Status: Finalized Attending MD: Lino Soto MD, [id number] Procedure: Upper GI endoscopy Indications: Gastroesopahgeal variceal [...] verified by the physician, the nurse, the orchard pruner and the sprinkler repair technician in the pre-procedure area in [...] to hypotension Procedure Code(s): --- Professional --- 73523, GC, Esophagogastroduodenoscopy, flexible, transoral; diagnostic, including collection of specimen(s) by brushing or washing, when performed (separate procedure) Diagnosis Code(s): --- Professional --- I85.00, Esophageal varices without bleeding K76.6, Portal hypertension K31.89, Other diseases of stomach and duodenum CPT copyright 2022 [employer]. All rights reserved. The codes documented in this report are preliminary and upon reference investigator review may be revised to meet current [...] In: 12:10:16 PM Scope Out: 12:17:[address] [place] [address], [address] us Provider Not In System PROCEDURE/MINOR SURGICAL ORDERABLES Final Result [facility] * ECHO STRESS W/ CONTRAST (10/09/2024 4:37 PM EDT) Anatomical Region Laterality Modality Chest Ultrasound 10/09/2024 2:40 PM EDT Narrative 10/09/2024 6:45 PM EDT * [facility]* [address] [place] [address] Stress Echocardiogram Patient: Blair Anderson Room: 8142 Height: 76in MR Number: [id number] : 1985 Weight: 262lb Account: [id number] Gender: M BP: 125 / 77 Study Date: 10/09/2024 Age: 39 BSA: 2.48m^2 Referring physician: Gerri Peterson Interpreting physician: Tonya Henriquez MD FELLOW Lisa Jha MD PERFORMING Tonya Henriquez MD 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 The infusion was terminated [...] at baseline or with provocation, shows no oerzk-ky-uvav atrial level shunt. - Pulmonary arteries: Systolic [...] at baseline or with provocation, shows no qbbcs-ar-mudv atrial level shunt. Pulmonary artery: - Systolic [...] at baseline or with provocation, shows no opxhn-dy-rnop atrial level shunt. Pericardium: - There is [...] peak heart rate and blood pressure was 50734cg Hg/min. Stress testing did not produce any [...] TDI (N) 10.8 cm/sec >=10.0 E/e', lat erggie, TDI (N) 10 <=13 E', med reggie, [...] the resident. 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 The infusion was terminated [...] at baseline or with provocation, shows no accww-jt-colb atrial level shunt. - Pulmonary arteries: Systolic [...] study at baseline or with provocation, showsno fgmfu-ye-lbmw atrial level shunt. Pulmonary artery: - Systolic [...] at baseline or with provocation, shows no htrka-le-xeyj atrial level shunt. Pericardium: - There is [...] heart rate). The maximal predicted heart rate [id number]. The target heart rate was 152bpm. The target heart rate was achieved.The heart rate response to stress is normal. There is a normal resting blood pressure with an appropriate response to stress. The rate-pressureproduct for the peak heart rate and blood pressure was 14635ra Hg/min. Stress testing did not produce any [...] Reviewed and confirmed by Tonya Henriquez MD [id number]:20 us Gerri Peterson MD CV ECHO ORDERABLES Final Result * Prepare RBC, leukoreduced, 1 Units (10/09/2024 6:16 AM EDT) Pathologist [facility] Product Code [id number] [facility] Unit Number [id number] [facility] Dispense Status Presumed Transfused_PT [facility] Blood Expiration Date [id number] [facility] Coding System [id number] [facility] Blood Bank Product us Kush Posada MD, PhD BLOOD BANK PRODUCT OR DERABLES Final Result [facility] * Renal Tx Recipient (10/09/2024 4:59 AM EDT) [facility] Renal Transplant Recipient The request and specimen(s) for this test have been received and transported to the [facility] at [address] [place] [address]. The [facility] will report results directly to the client. 10/09/2024 7:26 AM EDT [facility] Blood 10/09/2024 4:59 AM EDT 10/09/2024 7:26 AM EDT us Aaron Gonzalez MD LAB BLOOD ORDERABLES Final Resu lt [facility] [address] * Transfuse RBC Has consent been obtained? Yes; Transfusion Rate: Per dept routine (10/08/2024 1:17 PM EDT) us Kush Posada MD, PhD NURSING TREATMENT ORD ERABLES - BLOOD ADMIN Final Result EXTERNAL * (ABNORMAL) MMR(IgG) Panel (Measles, Mumps, Rubella) (10/08/2024 10:25 AM EDT) Only the most recent of2 resultswithin the time period is included. Mumps IgG Positive 10/08/2024 11:39 AM EDT [facility] MUMPS IGG NUM 99.00(H) 0.0 - 8.9 U/mL 10/08/2024 11:39 AM EDT [facility] Rubella IgG Scr Positive 10/08/2024 11:40 AM EDT [facility] RUB NUM 4.15(H) 0.00 - 0.89 INDEX 10/08/2024 11:40 AM EDT [facility] Rubeola Ab, IgG Positive 10/08/2024 11:39 AM EDT [facility] RUB IGG NUM 273.00(H) 0.00 - 13.40 U/mL 10/08/2024 11:39 AM EDT [facility] Serum 10/08/2024 10:2 5 AM EDT 10/08/2024 10:49 AM EDT Narrative [facility] - 10/08/2024 11:40 AM EDT Presence of detectable measles virus IgG antibodies. A positive result generally indicates exposure to measles virus or previous vaccination. Presence of detectable mumps virus IgG antibodies. A positive result generally indicates past exposure to mumps virus or previous vaccination. Sample is considered positive for IgG antibodies to rubella virus. Result [facility] Gerri Peterson MD LAB BLOOD ORDERABLES Final Resu lt Performing Organization Address City/[facility]/ZIP Co de Phone Number [facility] [address] [place] [address] * QuantiFERON TB2 Ag (10/08/2024 10:25 AM EDT) QuantiFERON TB2 Ag Value 0.07 10/10/2024 10:41 AM EDT [facility] Plasma 10/08/2024 10:2 5 AM EDT 10/08/2024 11:05 AM EDT Result [facility] Gerri Peterson MD LAB BLOOD ORDERABLES Final Resu lt Performing Organization Address [facility] Co de Phone Number [facility] [address] [facility]. [address] * QuantiFERON TB1 Ag (10/08/2024 10:25 AM EDT) QuantiFERON TB1 Ag Value 0.06 10/10/2024 10:41 AM EDT [facility] Plasma 10/08/2024 10:2 5 AM EDT 10/08/2024 11:05 AM EDT Result [facility] Gerri Peterson MD LAB BLOOD ORDERABLES Final Resu lt Performing Organization Address City/[facility]/ZIP Co de Phone Number [facility] [address] [place] [address]. [address] * QuantiFERON Nil (10/08/2024 10:25 AM EDT) QuantiFERON Nil 0.06 10:41 AM EDT [facility] Plasma 10/08/2024 10:2 5 AM EDT 10/08/2024 11:05 AM EDT Gerri Peterson MD LAB BLOOD ORDERABLES Final Resu lt [facility] [address] * QuantiFERON Mitogen (10/08/2024 10:25 AM EDT) QuantiFERON Interpretation Negative Negative 10/10/2024 10:41 AM EDT [facility] Comment:Negative result geovanny cates M. tuberculosis infection is NOT likely. Negative results do not preclude tuberculosis infection (especially in immunosuppressed patients). Negative results have a TB antigen minus Nil value less than 0.35 IU/mL. In cases with high suspicion of disease, retesting or additional testing with medical evaluation may be useful. QuantiFERON Mitogen 4.87 10/10 10:41 AM EDT [facility] Plasma 10/08/2024 10:2 5 AM EDT 10/08/2024 11:05 AM EDT Narrative [facility] - 10/10/2024 10:41 AM EDT [...] LAB BLOOD ORDERABLES Final Resu lt [facility] [address] * Iron Studies (Iron + TIBC) (10/08/2024 10:25 AM EDT) Iron 81 50 - 212 ug/dL 10/08/2024 11:23 AM EDT [facility]ALTH [facility] % Iron Saturation SEE COMMENT 15.0 - 55.0 % 10/08/2024 11:23 AM EDT [facility] Comment:Unable to calculate result because contributing result outside reportable range.. TIBC SEE COMMENT 261 - 462 ug/dL 10/08/2024 11:23 AM EDT [facility] Comment:Unable to calculate result because contributing result outside reportable range.. Serum 10/08/2024 10:2 5 AM EDT 10/08/2024 10:49 AM EDT Gerri Peterson MD LAB BLOOD ORDERABLES Final Resu lt Performing Organization Address [facility] Co de Phone Number [facility] [address] [facility]. [address] * (ABNORMAL) Vitamin D 25 Hydroxy (10/08/2024 10:25 AM EDT) Vit D, 25-Hydroxy 7.1(L) 30.0 - 100.0 ng/mL 10/08/2024 11:36 AM EDT [facility] Comment: Vitamin D deficiency has been defined by the [place] [employer] (IOM) and an Endocrine Society [...] Resu lt Performing Organization Address [facility]/ZIP Co de Phone Number [facility] [address] [facility]. [address] * (ABNORMAL) Hemoglobin A1C (10/08/2024 10:25 AM EDT) Hemoglobin A1C 3.7(L) 4.0 - 5.6 % 10/09/2024 1:22 PM EDT [facility] Comment: Hemoglobin A1c Interpretation Guidelines: [...] LAB BLOOD ORDERABLES Final Resu lt [facility] [address] * (ABNORMAL) Ferritin (10/08/2024 10:25 AM EDT) Pathologist [facility] Ferritin 706.9(H) 23.9 - 336.2 ng/mL 10/08/2024 11:[address] [facility] Serum 10/08/2024 10:2 5 AM EDT 10/08/2024 10:49 AM EDT Gerri Peterson MD LAB BLOOD ORDERABLES Final Resu lt [facility] [address] * Reticulocyte Count, Auto (10/08/2024 7:41 AM EDT) Retic Ct Pct 1.35 0.50 - 2.00 % 10/08/2024 9:12 AM EDT [facility] Retic Ct Abs 26,190 25,000 - 90,000 /uL 10/08/2024 9:14 AM EDT [facility] Immature Retic Fract 0.37 0.09 - 0.56 10/08/2024 9:12 AM EDT [facility] Whole Blood 10/08/2024 7:41 AM EDT 10/08/2024 8:51 AM EDT Gómez Blanchard MD LAB BLOOD ORDERABLES Final Res ult [facility] [address] [facility]. [address] * (ABNORMAL) Haptoglobin (10/08/2024 7:41 AM EDT) Haptoglobin <30(L) 44 - 215 mg/dL 10/08/2024 8:53 AM EDT [facility] Serum 10/08/2024 7:41 AM EDT 10/08/2024 7:51 AM EDT Kush Posada MD, PhD LAB BLOOD ORDERABLES Final Result Performing Organization Address [facility] Co de Phone Number [facility] [address] * (ABNORMAL) Lactate dehydrogenase (10/08/2024 5:36 AM EDT) LD 102(L) 110 - 270 U/L 10/08/2024 8:20 AM EDT [facility] Plasma 10/08/2024 5:36 AM EDT 10/08/2024 7:58 AM EDT Gómez Blanchard MD LAB BLOOD ORDERABLES Final Res ult [facility] [address] * Enteric Pathogen Panel (10/07/2024 10:50 PM EDT) Only the most recent of2 resultswithin the time period is included. Campylobacter Group (C. ecoli, C. jejuni, C. trino) Not Detected Not Detected 10/08/2024 4:40 AM EDT [facility] Salmonella species Not Detected Not Detected 10/08/2024 4:40 AM EDT [facility] Shigella species Not Detected Not Detected 10/08/2024 4:40 AM EDT [facility] Vibrio Group (Vibrio cholerae, Vibrio parahaemolyticus) Not Detected Not Detected 10/08/2024 4:40 AM EDT [facility] Yersinia enterocolitica Not Detected Not Detected 10/08/2024 4:40 AM EDT [facility] Shiga toxin 1 Not Detected Not Detected 10/08/2024 4:40 AM EDT [facility] Shiga toxin 2 Not Detected Not Detected 10/08/2024 4:40 AM EDT [facility] Norovirus Not Detected Not Detected 10/08/2024 4:40 AM EDT [facility] Rotavirus Not Detected Not Detected 10/08/2024 4:40 AM EDT [facility] Comment: The Enteric Pathogen Panel [...] FLUIDS AND STOOLS ORDERABLE S Final Result [facility] [address] * Urine Drug Confirmation (10/07/2024 10:50 PM EDT) Only the most recent of2 resultswithin the time period is included. BARBITURATES NOT PRESENT 10/09/2024 1:33 PM EDT [facility] BENZODIAZEPINES PRESENT 1:33 PM EDT [facility] Nordiazepam 3 ng/mL 10/09/2024 1:33 PM EDT [facility] Temazepam 6 ng/mL 10/09/2024 1:33 PM EDT [facility] CANNABINOIDS NOT PRESENT 10/09/2024 1:33 PM EDT [facility] ENGINEER TECHNICIAN STIMULANTS NOT PRESENT 1:33 PM EDT [facility] OPIOID ANALGESICS PRESENT 025 1:33 PM EDT [facility] Oxycodone 300 ng/mL 10/09/2024 1:33 PM EDT [facility] Oxymorphone 32 ng/mL 10/09/2024 1:33 PM EDT [facility] Tramadol >1000 ng/mL 10/09/2024 1:33 PM EDT [facility] OPIOID ANTAGONISTS NOT PRESENT 10/09 1:33 PM EDT [facility] SEDATIVES/MUSCLE RELAXANTS NOT PRESENT 10/09/2024 1:33 PM EDT [facility] TRICYCLIC ANTIDEPRESSANTS NOT PRESENT 10/09/2024 1:33 PM EDT [facility] Urine 10/07/2024 10:5 0 PM EDT 10/08/2024 3:00 AM EDT Gerri Peterson MD URINE ORDERABLES Final Result Performing Organization Address City/State/[facility] Co de Phone Number [facility] [address] * Giardia Cryptosporidium Antigens (10/07/2024 10:50 PM EDT) Cryptosporidium Ag Negative Negative 2024 7:59 AM EDT [facility] Giardia Ag Negative Negative 10/08/2024 7:59 AM EDT [facility] [facility] Comment: Detection of Giardia and Cryptosporidium antigen is more sensitive and specific than microscopy. Because antigens are shed continuously, repeat testing is rarely warranted. Feces 10/07/2024 10:5 0 PM EDT 10/08/2024 1:53 AM EDT Comment:F us Bisi Hernandez DO MICROBIOLOGY - GENERAL ORDERABLE S Final Result [facility] [address] [place] [address], [facility] * Comprehensive Drug Screen (10/07/2024 10:50 PM EDT) Only the most recent of2 resultswithin the time period is included. Creatinine, Ur CANCELED mg/dL 10/08/2024 7:09 AM EDT [facility] Comment:The released value 8 7.30 was canceled by YAQUELIN on 10/08/2024 07:09 BARBITURATES CANCELED [facility] Butalbital CANCELED [facility] Phenobarbital CANCELED [facility] Secobarbital CANCELED [facility] BENZODIAZEPINES CANCELED [facility] Alprazolam CANCELED [facility] Clonazepam CANCELED [facility] Diazepam CANCELED [facility] Alpha-Hydroxyalprazo mcknight CANCELED [facility] Lorazepam CANCELED [facility] Midazolam CANCELED [facility] Nordiazepam CANCELED [facility] Oxazepam CANCELED [facility] Temazepam CANCELED [facility] CANNABINOIDS CANCELED [facility] THC-COOH CANCELED [facility] ENGINEER TECHNICIAN STIMULANTS CANCELED [facility] Cocaine Metabolite(benzoylec gonine) CANCELED [facility] Amphetamine CANCELED [facility] Methamphetamine CANCELED [facility] MDA CANCELED [facility] MDEA CANCELED [facility] Phencyclindine (PCP) CANCELED [facility] OPIOID ANALGESICS CANCELED [facility] Heroin Metabolite(6-RAMONA) CANCELED [facility] Codeine CANCELED [facility] Morphine CANCELED [facility] Hydrocodone CANCELED [facility] Hydromorphone CANCELED [facility] Oxycodone CANCELED [facility] Oxymorphone CANCELED [facility] Meperidine CANCELED [facility] Normeperidine CANCELED [facility] Methadone CANCELED [facility] Methadone Metabolite (EDDP) [facility] Tramadol [facility] Fentanyl [facility] Norfentanyl [facility] Sufentanil [facility] OPIOID ANTAGONISTS CANCELED [facility] Buprenorphine [facility] Norbuprenorphine [facility] Naltrexone [facility] Naloxone [facility] SEDATIVES/MUSCLE RELAXANTS [facility] Carisoprodol [facility] Meprobamate [facility] TRICYCLIC ANTIDEPRESSANTS [facility] Amitriptyline [facility] Clomipramine [facility] Desipramine [facility] Doxepin [facility] Imipramine CANCELED [facility] Nortriptyline [facility] Urine Creatinine CANCELED mg/dL [facility] Nitrite CANCELED [facility] Glutaraldehyde CANCELED [facility] pH CANCELED 10/08/2024 7:09 AM EDT [facility] Comment:The released value 5 .6 was canceled by YAQUELIN on 10/08/2024 07:09 Specific [place] CANCELED 10/09/19 7:09 AM EDT [facility] Comment:The released value 1 .009 was canceled by YAQUELIN on 10/08/2024 07:09 Bleach CANCELED [facility] Pyridinium Chlorochromate CANCELED [facility] Urine 10/07/2024 10:5 0 PM EDT 10/08/2024 2:07 AM EDT Narrative HEALTH LAB - 10/08/2024 7:09 AM EDT See accn [id number] us Gerri Peterson MD URINE ORDERABLES Edited Result - Final [facility] [address] [place], [place] [address] * (ABNORMAL) Urine Drug Screen Reflex to Confirmation (10/07/2024 10:50 PM EDT) Only the most recent of2 resultswithin the time period is included. Amphetamine, 500 ng/mL Cutoff Negative Negative 10/08/2024 3:00 AM EDT [facility] Barbiturates UR, 300 ng/mL Cutoff Negative Negative 10/08/2024 3:00 AM EDT [facility] Buprenorphine, 5 ng/mL Cutoff Negative Negative 10/08/2024 3:00 AM EDT [facility] Benzodiazepines UR, 300 ng/mL Cutoff Negative Negative 10/08/2024 3:00 AM EDT [facility] Cocaine UR, 300 ng/mL Cutoff Negative Negative 10/08/2024 3:00 AM EDT [facility] Methadone, UR, 300 ng/mL Cutoff Negative Negative 10/08/2024 3:00 AM EDT [facility] Opiates UR, 300 ng/mL Cutoff Negative Negative 10/08/2024 3:00 AM EDT [facility] Oxycodone, 100 ng/mL Cutoff Presumptive Positive(A) Negative 10/08/2024 3:00 AM EDT [facility] Tricyclic Antidepressants, 300 ng/mL Cutoff Negative Negative 10/08/2024 3:00 AM EDT [facility] Comment:This test has been d eveloped and its performance characteristics determined by [facility] which is certified under the Clinical [...] Cutoff Negative Negative 10/08/2024 3:00 AM EDT [facility] Comment:This is a screening method only and may be associated with false positive and/or false negative results. Results are not definitive without additional confirmatory testing by mass spectrometry. Fentanyl, 2 ng/mL Cutoff Negative Negative 10/08/2024 3:00 AM EDT [facility] Comment:This test has been d eveloped and its performance characteristics determined by [facility] which is certified under the Clinical [...] PM EDT 10/08/2024 2:08 AM EDT Narrative [facility] - 10/08/2024 3:00 AM EDT CONFIRMATION TO FOLLOW Gerri Peterson MD URINE ORDERABLES Final Result Performing Organization Address City/[facility]/ZIP Co de Phone Number [facility] [address] * Ova and Parasite Comprehensive w/ Giardia/Crypto (10/07/2024 10:50 PM EDT) O & P Method: Concentration and Trichrome Stain [facility] Results No Amoeba, Ova, Or Parasites Seen. -- O and P examination of additional specimens is recommended only for symptomatic patients, immunosuppressed patients or those with an appropriate travel history. [facility] Feces FECES / Unknown 10/07/2024 1 0:50 PM EDT 10/08/2024 1:53 AM EDT Comment:F Bisi Hernandez DO MICROBIOLOGY - GENERAL ORDERABLE S Final Result Performing Organization Address [facility] Co de Phone Number [facility] [address] [facility]. [address] * Hepatitis A Antibody Total (10/07/2024 6:38 PM EDT) Only the most recent of2 resultswithin the time period is included. Anti-HAV Total (IgG + IgM) Nonreactive 10/07/2024 7:53 PM EDT [facility] Serum 10/07/2024 6:38 PM EDT 10/07/2024 6:52 PM EDT Narrative [facility] - 10/07/2024 7:53 PM EDT HAV antibodies not detected Gerri Peterson MD LAB BLOOD ORDERABLES Final Resu lt Performing Organization Address City/[facility]/ZIP Co de Phone Number [facility] [address] * Hepatitis A IgM (10/07/2024 6:38 PM EDT) Only the most recent of3 resultswithin the time period is included. Hep A IgM Nonreactive Nonreactive 10/07/2024 7:46 PM EDT [facility] Serum 10/07/2024 6:38 PM EDT 10/07/2024 6:52 PM EDT [facility] - 10/07/2024 7:46 PM EDT IgM anti-HAV not detected. Does not exclude the possibility of exposure to or infection with HAV. Levels of IgM anti-HAV may be below the cut-off in early infection. Gerri Peterson MD LAB BLOOD ORDERABLES Final Resu lt Performing Organization Address [facility] Co de Phone Number [facility] [address] * Hepatitis C Antibody (10/07/2024 6:38 PM EDT) Only the most recent of3 resultswithin the time period is included. HCV Ab Nonreactive Nonreactive 10/07/2024 7:56 PM EDT [facility] Comment:Health Department no tified in accordance with reportable infectious disease guidelines. Serum 10/07/2024 6:38 PM EDT 10/07/2024 6:52 PM EDT [facility] - 10/07/2024 7:56 PM EDT Antibodies to HCV not detected; does not exclude the possibility of exposure to HCV. Gerri Peterson MD LAB BLOOD ORDERABLES Final Resu lt Performing Organization Address [facility] Co de Phone Number [facility] [address] * Hepatitis B Surface Antibody, Quantitati (10/07/2024 6:38 PM EDT) Only the most recent of2 resultswithin the time period is included. Hep B S Ab Nonreactive Nonreactive 10/07/2024 8:00 PM EDT [facility] HBSAB NUMBER 7.88 0.00 - 7.99 mIU/mL 10/07/2024 8:00 PM EDT [facility] Serum 10/07/2024 6:38 PM EDT 10/07/2024 6:52 PM EDT Narrative [facility] - 10/07/2024 8:00 PM EDT Individual is considered not immune to HBV infection. Gerri Peterson MD LAB BLOOD ORDERABLES Final Resu lt Performing Organization Address [facility] Co de Phone Number [facility] [address] [facility]. [address] * Hepatitis B surface antigen (10/07/2024 6:38 PM EDT) Only the most recent of3 resultswithin the time period is included. Hep B Surface Ag Nonreactive Nonreactive 10/07/2024 7:51 PM EDT [facility] Comment:Health Department no tified in accordance with reportable infectious disease guidelines. Serum 10/07/2024 6:38 PM EDT 10/07/2024 6:52 PM EDT [facility] - 10/07/2024 7:51 PM EDT Specimen is considered negative for HBsAg. Gerri Peterson MD LAB BLOOD ORDERABLES Final Resu lt Performing Organization Address [facility] de Phone Number [facility] [address] [facility]. [address] * Syphilis Screening (Trepia) (10/07/2024 6:37 PM EDT) Treponema Pallidum Negative Negative 10/07/2024 8:27 PM EDT [facility] Comment: No serological evidence of infection with Treponema pallidum (incubating or early primary syphilis cannot be excluded). Serum 10/07/2024 6:37 PM EDT 10/07/2024 6:50 PM EDT Gerri Peterson MD LAB BLOOD ORDERABLES Final Resu lt Performing Organization Address [facility]/ZIP Co de Phone Number [facility] [address] [place] [address], [facility] * Phosphatidylethanol Confirmation, B (10/07/2024 6:37 PM EDT) Only the most recent of6 resultswithin the time period is included. PETH 16:0/18.1 (POPETH) <10 Cutoff: 10 ng/mL 10/10/2024 10:42 AM EDT [facility] Comment: Phosphatidylethanol (PEth) homologues result [...] Cutoff: 10 ng/mL 10/10/2024 10:42 AM EDT [facility] Comment: PEth 16:0/18:2 (PLPEth) Reference ranges are not well established PEth Interpretation Negative. 10/10 10:42 AM EDT [facility] Comment: ADDITIONAL INFORMATION This report is intended for use in clinical monitoring and management of patients. It is not intended for use in employment-related testing. This test was developed and its performance characteristics determined by [facility] in a manner consistent with CLIA requirements. This test has not been cleared or approved by the U.S. Food and Drug Administration. Test Performed by: [facility] [address] [address] Animal Care Supervisor: Kathy Ortiz Ph.D.; CLIA# [id number] Whole Blood 10/07/2024 6:37 PM EDT 10/10/2024 10:42 AM EDT Gerri Peterson MD LAB BLOOD ORDERABLES Final Resu lt [facility] [address] * (ABNORMAL) CMV IgG Antibody (10/07/2024 6:37 PM EDT) CMV IgG Positive(A ) Negative 10/07/2024 8:26 PM EDT [facility] CMV IGG NUM 8.40(H) 0.00 - 0.59 U/mL 10/07/2024 8:26 PM EDT [facility] Serum 10/07/2024 6:37 PM EDT 10/07/2024 6:50 PM EDT Gerri Peterson MD LAB BLOOD ORDERABLES Final Resu lt Performing Organization Address City/[facility] Co de Phone Number [facility] [address] [facility]. [address] * (ABNORMAL) Alpha 1 Antitrypsin AAT Quant & Mutation (10/07/2024 6:37 PM EDT) A-1 Antitrypsin 99(L) 101 - 187 mg/dL 10/09/2024 4:28 AM EDT [facility] A-1 Antitrypsin Pheno Comment 10/10/2024 4:05 PM EDT [facility] Comment: A1A Phenotype is consistent with a heterozygous phenotype consisting of one M (normal) allele and one allele that cannot be identified at this time. The unknown allele is not consistent with Z (deficient), S (deficient), or F (deficient). MM Phenotype is considered to be normal , producing normal serum levels of [id number] inhibitor and not associated with clinical disease. [...] PM EDT 10/10/2024 4:08 PM EDT Narrative [facility] - 10/10/2024 4:08 PM EDT PERFORMED AT: [email or web address] [id number] DRY MOLDER: Bassam Khalil, PhD PHONE: [phone] PERFORMED AT: [email or web address] [id number] DRY MOLDER: Mandy Abdul MD PHONE: [phone] Gerri Peterson MD LAB BLOOD ORDERABLES Final Resu lt Performing Organization Address [facility] de Phone Number [facility] [address] * Strongyloides Ab (10/07/2024 6:37 PM EDT) Strongyloides Ab Negative Negative 10/11/19 11:51 AM EDT [facility] Serum 10/07/2024 6:37 PM EDT 10/10/2024 12:07 PM EDT Narrative [facility] - 10/10/2024 12:07 PM EDT PERFORMED AT: [email or web address] [id number] DRY MOLDER: Mandy Abdul MD PHONE: [phone] Gerri Peterson MD LAB BLOOD ORDERABLES Final Resu lt Performing Organization Address [facility] Co de Phone Number [facility] [address] * Ethanol, Serum (10/07/2024 6:37 PM EDT) Only the most recent of3 resultswithin the time period is included. Pathologist [facility] Ethanol <10 0 - 10 mg/dL 10/07/2024 8:36 PM EDT [facility] Serum 10/07/2024 6:37 PM EDT 10/07/2024 6:50 PM EDT Gerri Peterson MD LAB BLOOD ORDERABLES Final Resu lt [facility] [address] [place] [address] * Katie-Watkins virus early antigen antibody, IgG (10/07/2024 6:37 PM EDT) Pathologist [facility] EBV Early Antigen Ab, IgG <9.0 0.0 - 8.9 U/mL 10/09/2024 2:16 PM EDT [facility] Comment: Negative < 9.0 Equivocal 9.0 - 10.9 Positive >10.9 Serum Frozen 10/07/2024 6:37 PM EDT 10/09/2024 3:07 PM EDT Narrative [facility] - 10/09/2024 3:07 PM EDT PERFORMED AT: [email or web address] [id number] DRY MOLDER: Bassam Khalil, PhD PHONE: [phone] Gerri Peterson MD LAB BLOOD ORDERABLES Final Resu lt [facility] [address] [place] [address]. [address] * Toxoplasma gondii antibody, IgG (10/07/2024 6:37 PM EDT) Pathologist [facility] Toxoplasma Gondii IgG <3.0 0.0 - 7.1 IU/mL 10/09/2024 7:53 AM EDT [facility] Comment: Negative <7.2 Equivocal 7.2 - 8.7 Positive >8.7 Serum 10/07/2024 6:37 PM EDT 10/09/2024 8:07 AM EDT Narrative [facility] - 10/09/2024 8:07 AM EDT PERFORMED AT: [email or web address] [id number] DRY MOLDER: Bassam Khalil, PhD PHONE: [phone] Gerri Peterson MD LAB BLOOD ORDERABLES Final Resu lt Performing Organization Address City/[facility]/ZIP Co de Phone Number [facility] [address] [facility]. [address] * HIV-1 and HIV-2 Antibodies w Reflex (10/07/2024 6:37 PM EDT) HIV 1+2 AB/AGN Nonreactive Nonreactive 10/07/2024 7:54 PM EDT [facility] Serum 10/07/2024 6:37 PM EDT 10/07/2024 7:06 PM EDT Narrative [facility] - 10/07/2024 7:54 PM EDT \HIVRNR Gerri Peterson MD LAB BLOOD ORDERABLES Final Resu lt Performing Organization Address [facility] Co de Phone Number [facility] [address] [facility]. [address] * (ABNORMAL) Varicella zoster antibody, IgG (10/07/2024 6:37 PM EDT) Varicella IgG Positive( A) Negative S/CO 10/07/2024 8:34 PM EDT [facility] Comment:Result indicates the presence of detectable VZV IgG antibodies. A positive result is generally indicative of exposure to the pathogen or administration of specific immunoglobulins, but it is no indication of active infection or stage of disease. This test is not approved for determining vaccine-induced immunity to varicella zoster virus. VZV NUM 6.76(H) 0.00 - 0.99 S/CO 10/07/2024 8:34 PM EDT [facility] Serum 10/07/2024 6:37 PM EDT 10/07/2024 6:50 PM EDT Result [facility] Gerri Peterson MD LAB BLOOD ORDERABLES Final Resu lt Performing Organization Address [facility] Co de Phone Number [facility] [address] [facility]. [address] * TSH (Thyroid Stimulating Hormone) (10/07/2024 6:37 PM EDT) Only the most recent of2 resultswithin the time period is included. TSH 0.81 0.45 - 4.12 uIU/mL 10/07/2024 8:17 PM EDT [facility] Serum 10/07/2024 6:37 PM EDT 10/07/2024 6:50 PM EDT Result [facility] Gerri Peterson MD LAB BLOOD ORDERABLES Final Resu lt Performing Organization Address [facility] Co de Phone Number [facility] [address] [facility]. [address] * IgA (10/07/2024 6:37 PM EDT) Pathologist [facility] IgA 227.0 70.0 - 400.0 mg/dL 10/08/2024 11:07 AM EDT [facility] Comment:Please interpret the se findings in conjunction with clinical findings, protein electrophoresis, and immunotyping/immunofixation results. Serum 10/07/2024 6:37 PM EDT 10/07/2024 6:50 PM EDT Gerri Peterson MD LAB BLOOD ORDERABLES Final Resu lt Performing Organization Address [facility] Co de Phone Number [facility] [address] [facility]. [address] * (ABNORMAL) Lipid Profile (10/07/2024 6:37 PM EDT) Non-HDL Cholesterol, Calculated See Note 0 - 129 mg/dL 10/07/2024 7:42 PM EDT [facility] Comment: Desirable: < 130 mg/dL Above Desirable: 130-159 mg/dL Borderline High: 160-189 mg/dL High: 190-219 mg/dL Very High: > 219 mg/dL Unable to calculate result either because contributing result(s) are outside of reportable range or are not available. Cholesterol, Total <25 0 - 200 mg/dL 10/07/2024 7:42 PM EDT [facility] Triglycerides 30 10 - 149 mg/dL 10/07/2024 7:42 PM EDT [facility] HDL 4(L) 60 - 92 mg/dL 10/07/2024 7:42 PM EDT [facility] Comment: LIPID PROFILE INTERPRETATION CHOLESTEROL,TOTAL(mg/dL) [...] Cholesterol See Note mg/dL 7:42 PM EDT [facility] Comment:Unable to calculate result either because contributing result(s) are outside of reportable range or are not available. Plasma 10/07/2024 6:37 PM EDT 10/07/2024 7:06 PM EDT Narrative [facility] - 10/07/2024 7:42 PM EDT LDL cholesterol calculated using the Friedewald equation. us Gerri Peterson MD LAB BLOOD ORDERABLES Final Resu lt [facility] [address] [place] [address], [facility] * X-ray Mandible minimum 4-views (10/07/2024 [...] ORDERABL ES Final Result * US Duplex [id number] Comp (10/07/2024 3:48 PM EDT) Only the [...] EXAM: US ABDOMEN COMPLETE EXAM: US DUPLEX [id number] COMPLETE INDICATION: elevated bilirubin COMPARISON: Ultrasound and [...] EXAM: US ABDOMEN COMPLETE EXAM: US DUPLEX [id number] COMPLETE INDICATION: elevated bilirubin COMPARISON: Ultrasound and [...] 4:26 PM EDT us Bisi Hernandez DO [facility] US ORDERABLES Final Result * US Abdomen [...] EXAM: US ABDOMEN COMPLETE EXAM: US DUPLEX [id number] COMPLETE INDICATION: elevated bilirubin COMPARISON: Ultrasound and [...] EXAM: US ABDOMEN COMPLETE EXAM: US DUPLEX [id number] COMPLETE INDICATION: elevated bilirubin COMPARISON: Ultrasound and [...] 4:26 PM EDT us Bisi Hernandez DO [facility] US ORDERABLES Final Result * AFP Tumor Marker (10/07/2024 6:00 AM EDT) Only the most recent of3 resultswithin the time period is included. AFP-Tumor Marker 2.0 0.0 - 9.0 ng/mL 10/07/2024 7:11 AM EDT [facility] Serum 10/07/2024 6:00 AM EDT 10/07/2024 6:39 AM EDT Narrative [facility] - 10/07/2024 7:11 AM EDT The testing method for AFP is a chemiluminescent immunoassay manufactured by [employer] Concentrations of AFP obtained by different assay methods or kits may vary and cannot be used interchangeably. AFP results cannot be interpreted as absolute evidence of the presence or absence of malignant disease. Ni Rivera MD LAB BLOOD ORDERABLES Final Resul t Performing Organization Address [facility] Co de Phone Number [facility] [address] [facility] [facility] [address] * Osmolality (10/06/2024 2:50 PM EDT) [facility] Osmolality, Measured 304 278 - 305 mOsm/kg 10/06/2024 3:49 PM EDT [facility] Serum 10/06/2024 2:50 PM EDT 10/06/2024 2:56 PM EDT Jani Vanegas MD LAB BLOOD ORDERABLES Final Resul t Performing Organization Address [facility] de Phone Number [facility] [address] [facility]. [address] * CT Head WO contrast (10/06/2024 [...] Kush Posada MD, PhD IMG CT ORDERABLES [facility] Result * Sodium, urine, random (10/06/2024 1:25 PM EDT) Only the most recent of6 resultswithin the time period is included. Sodium, Ur <10 mmol/L 10/06/2024 1:56 PM EDT [facility] Comment:Reference range not established for this test. Urine 10/06/2024 1:25 PM EDT 10/06/2024 1:32 PM EDT us Jani Vanegas MD URINE ORDERABLES Final Result [facility] [address] * Potassium, urine, random (10/06/2024 1:25 PM EDT) Only the most recent of4 resultswithin the time period is included. Potassium Urine Random 50.0 mmol/L 10/06/2024 1:56 PM EDT [facility] Comment:Reference range not established for this test. Urine 10/06/2024 1:25 PM EDT 10/06/2024 1:32 PM EDT us Jani Vanegas MD URINE ORDERABLES Final Result Performing Organization Address [facility] Co de Phone Number [facility] [address] [place] [address] * Osmolality, Urine (10/06/2024 1:25 PM EDT) Only the most recent of2 resultswithin the time period is included. Osmolality, Ur 386 50 - 1,200 mOsm/kg 10/06/2024 1:55 PM EDT [facility] Urine 10/06/2024 1:25 PM EDT 10/06/2024 1:32 PM EDT us Jani Vanegas MD URINE ORDERABLES Final Result Performing Organization Address [facility] de Phone Number [facility] [address] [place] [address] * Creatinine, Urine, Random (10/06/2024 1:25 PM EDT) Only the most recent of4 resultswithin the time period is included. Creatinine, Urine 87.40 mg/dL 10/06/2024 1:56 PM EDT [facility] Comment:Reference range not established for this test. Urine 10/06/2024 1:25 PM EDT 10/06/2024 1:32 PM EDT us Jani Vanegas MD URINE ORDERABLES Final Result Performing Organization Address [facility] Co de Phone Number [facility] [address] * Chloride, urine, random (10/06/2024 1:25 PM EDT) Only the most recent of4 resultswithin the time period is included. Chloride, Ur <15 mmol/L 10/06/2024 1:56 PM EDT [facility] Comment:Reference range not established for this test. Urine 10/06/2024 1:25 PM EDT 10/06/2024 1:32 PM EDT Jani Vanegas MD URINE ORDERABLES Final Result [facility] [address] [place] [address], [facility] * Urinalysis w/Rfl to Microscopic (10/06/2024 11:51 AM EDT) Color, UA Yellow Yellow,Straw 10/06/2024 12:25 PM EDT [facility] Clarity, UA Clear Clear 10/06/2024 12:25 PM EDT [facility] Specific [place], UA 1.014 1.005 - 1.035 10/06/2024 12:25 PM EDT [facility] pH, UA 6.0 5.0 - 8.0 10/06/2024 12:25 PM EDT [facility] Protein, UA Negative Negative mg/dL 10/06/2024 12:25 PM EDT [facility] Glucose, UA Negative Negative mg/dL 10/06/2024 12:25 PM EDT [facility] Ketones, UA Negative Negative mg/dL 10/06/2024 12:25 PM EDT [facility] Bilirubin, UA Negative Negative 10/06/2024 12:25 PM EDT [facility] Blood, UA Negative Negative 10/06/2024 12:25 PM EDT [facility] Nitrite, UA Negative Negative 10/06/2024 12:25 PM EDT [facility] Urobilinogen, UA <2.0 0.2 - 1.9 mg/dL 10/06/2024 12:25 PM EDT [facility] Leukocyte Esterase, UA Negative Negative 10/06/2024 12:25 PM EDT [facility] Urine 10/06/2024 11:5 1 AM EDT 10/06/2024 11:57 AM EDT Narrative [facility] - 10/06/2024 12:25 PM EDT Microscopic testing is not performed when the dipstick is negative for blood, leukocyte, protein and nitrite. Bisi Hernandez DO URINE ORDERABLES Final Result Performing Organization Address [facility] Co de Phone Number [facility] [address] * Lactic Acid, STAT (10/06/2024 7:38 AM EDT) Only the most recent of5 resultswithin the time period is included. Lactate 0.9 0.5 - 2.2 mmol/L 10/06/2024 8:05 AM EDT [facility] Plasma 10/06/2024 7:38 AM EDT 10/06/2024 7:42 AM EDT Jani Vanegas MD LAB BLOOD ORDERABLES Final Resul t Performing Organization Address [facility] Co de Phone Number [facility] [address] * (ABNORMAL) Venous Blood Gas, Line/Syringe, STAT (10/06/2024 7:37 AM EDT) Only the most recent of10 resultswithin the time period is included. PH-Line Draw 7.27(L) 7.32 - 7.42 10/06/2024 7:46 AM EDT [facility] PCO2-Line Draw 36(L) 41 - 51 mm Hg 10/06/2024 7:46 AM EDT [facility] PO2-Line Draw 44(H) 25 - 40 mm Hg 10/06/2024 7:46 AM EDT [facility] HCO3-Line Draw 17(L) 24 - 28 mmol/L 10/06/2024 7:46 AM EDT [facility] CO2 Content-Line Draw 18(L) 25 - 29 mmol/L 10/06/2024 7:46 AM EDT [facility] Base Excess-Line Draw -9.6(L) -2.0 - 3.0 mmol/L 10/06/2024 7:46 AM EDT [facility] %HBO2-Line Draw 69.8 40.0 - 70.0 % 10/06/2024 7:46 AM EDT [facility] Carboxyhgb-Ludivina e Draw 0.7 % 10/06/2024 7:46 AM EDT [facility] Comment: CARBOXYHEMOGLOBIN (CO) REFERENCE RANGES: Non-Smokers: <2 % Smokers: <8 % TOXIC: >20 % Methemoglobin- Line Draw 0.3 0.0 - 1.5 % 10/06/2024 7:46 AM EDT [facility] Reduced Hemoglobin-Ludivina e Draw 29.2(H) 0.0 - 5.0 % 10/06/2024 7:46 AM EDT [facility] Venous, Line Draw 10/06/2024 7:37 AM EDT 10/06/2024 7:43 AM EDT us Jani Vanegas MD LAB BLOOD ORDERABLES Final Resul t Performing Organization Address City/State/[facility] Co de Phone Number [facility] [address] * (ABNORMAL) Comprehensive Metabolic Panel (10/06/2024 7:37 AM EDT) Only the most recent of6 resultswithin the time period is included. Sodium 129(L) 133 - 146 mmol/L 10/06/2024 8:16 AM EDT [facility] Potassium 4.4 3.5 - 5.3 mmol/L 10/06/2024 8:16 AM EDT [facility] Chloride 100 98 - 110 mmol/L 10/06/2024 8:16 AM EDT [facility] CO2 18(L) 21 - 33 mmol/L 10/06/2024 8:16 AM EDT [facility] Anion Gap 11 3 - 16 mmol/L 10/06/2024 8:16 AM EDT [facility] BUN 62(H) 7 - 25 mg/dL 10/06/2024 8:16 AM EDT [facility] Creatinine 3.40(H) 0.60 - 1.30 mg/dL 10/06/2024 8:16 AM EDT [facility] Glucose 98 70 - 100 mg/dL 10/06/2024 8:16 AM EDT [facility] Calcium 9.5 8.6 - 10.3 mg/dL 10/06/2024 8:16 AM EDT [facility] Total Bilirubin 14.3(H) 0.0 - 1.5 mg/dL 10/06/2024 8:16 AM EDT [facility] AST 57(H) 13 - 39 U/L 10/06/2024 8:16 AM EDT [facility] ALT 29 7 - 52 U/L 10/06/2024 8:16 AM EDT [facility] Alkaline Phosphatase 158(H) 36 - 125 U/L 10/06/2024 8:16 AM EDT [facility] Total Protein 5.6(L) 6.4 - 8.9 g/dL 10/06/2024 8:16 AM EDT [facility] Albumin 3.6 3.5 - 5.7 g/dL 10/06/2024 8:16 AM EDT [facility] Osmolality, Calculated 286 278 - 305 mOsm/kg 10/06/2024 8:16 AM EDT [facility] EGFR 22 10/06/2024 8:16 AM EDT [facility] Comment:As of 2021, the estimated [...] LAB BLOOD ORDERABLES Final Resul t [facility] [address] * (ABNORMAL) Salicylate Level (10/06/2024 4:01 AM EDT) [facility] Salicylate Lvl <3(L) 10 - 30 mg/dL 10/06/2024 4:58 AM EDT [facility] Serum 10/06/2024 4:01 AM EDT 10/06/2024 4:22 AM EDT Bisi Hernandez DO LAB BLOOD ORDERABLES Final Resul t [facility] [address] * Upper Respiratory Viral/Bacterial Panel-MANAGER CONTRACTING Only (10/06/2024 3:12 AM EDT) [facility] Adenovirus Not Detected Not Detected 10/06/2024 11:38 PM EDT [facility] Coronavirus (229E,HKU1,NL63,OC 43) Not Detected Not Detected 10/06/2024 11:38 PM EDT [facility] SARS-CoV-2 Not Detected Not Detected 10/06/2024 11:38 PM EDT [facility] Human Metapneumovirus Not Detected Not Detected 10/06/2024 11:38 PM EDT [facility] Human Rhinovirus/Enterov irus Not Detected Not Detected 10/06/2024 11:38 PM EDT [facility] Influenza A Not Detected Not Detected 10/06/2024 11:38 PM EDT [facility] Influenza A H1 Not Detected Not Detected 10/06/2024 11:38 PM EDT [facility] Influenza A/H1-2009 Not Detected Not Detected 10/06/2024 11:38 PM EDT [facility] Influenza A H3 Not Detected Not Detected 10/06/2024 11:38 PM EDT [facility] Influenza B Not Detected Not Detected 10/06/2024 11:38 PM EDT [facility] Parainfluenza 1 Not Detected Not Detected 10/06/2024 11:38 PM EDT [facility] Parainfluenza 2 Not Detected Not Detected 10/06/2024 11:38 PM EDT [facility] Parainfluenza 3 Not Detected Not Detected 10/06/2024 11:38 PM EDT [facility] Parainfluenza 4 Not Detected Not Detected 10/06/2024 11:38 PM EDT [facility] Resp. Syncycial Virus A Not Detected Not Detected 10/06/2024 11:38 PM EDT [facility] Resp. Syncycial Virus B Not Detected Not Detected 10/06/2024 11:38 PM EDT [facility] Chlamydia pneumoniae Not Detected Not Detected 10/06/2024 11:38 PM EDT [facility] Mycoplasma pneumoniae Not Detected Not Detected 10/06/2024 11:38 PM EDT [facility] Comment: The Respiratory Viral-Bacterial Panel [...] sent to the [facility] in accordance with state requirements. For a fact sheet for healthcare providers, see https://www.fda.gov/media/602336/download. For a fact sheet for patients, see https://www.fda.gov/media/546427/download. Nasopharyngeal Swab NASOPHARYNGEAL SWAB / Unknown 10/06/2024 3:12 AM EDT 10/06/2024 5:41 PM EDT Comment:MANAGER CONTRACTING us Bisi Akella DO BODY FLUIDS AND STOOLS ORDERABLE S Final Result [facility] [address] [place] [address], [facility] * X-ray Portable Chest (10/06/2024 [...] at 10/06/2024 2:33 AM EDT us Bisi Davidella DO IMG DIAGNOSTIC IMAGING ORDERABLE S Final Result * Thyroid Function Dorado (10/06/2024 1:04 AM EDT) TSH 0.84 0.45 - 4.12 uIU/mL 10/06/2024 2:20 AM EDT [facility] Serum 10/06/2024 1:04 AM EDT 10/06/2024 1:39 AM EDT [facility] LAB BLOOD ORDERABLES Final Resul t [facility] [address] [facility]. [address] * #2 Blood culture-Peripheral site 2 (10/06/2024 1:04 AM EDT) Only the most recent of6 resultswithin the time period is included. Culture Result No Growth After 5 Days [facility] Blood BLOOD SPECIMEN / Unknown 10/06/2024 1:04 AM EDT 10/06/2024 4:57 AM EDT Narrative [facility] - 10/11/2024 5:05 AM EDT Suboptimal volume of blood received. Interpret results with caution. [employer] maría MICROBIOLOGY - GENERAL ORDERABLE S Final Result Performing Organization Address [facility]/ZIP Co de Phone Number [facility] [address] [facility]. [address] * (ABNORMAL) Acetaminophen Level (10/06/2024 1:04 AM EDT) Acetaminophen Level <10(L) 10 - 30 ug/mL 10/06/2024 2:08 AM EDT [facility] Serum 10/06/2024 1:04 AM EDT 10/06/2024 1:30 AM EDT [facility] LAB BLOOD ORDERABLES Final Resul t Performing Organization Address City/[facility]/ZIP Co de Phone Number [facility] [address] [facility]. [place], [place] [address] * Renal Function Panel, Fasting (09/16/2024 12:20 PM EDT) EGFR 31 Anion Gap 14.3 <=30 mmol/L Plasma Result [facility] Gerri Peterson MD LAB BLOOD ORDERABLES [...] 7.5 - 11.5 fL Whole Blood Result [facility] Gerri Peterson MD LAB BLOOD ORDERABLES Final Resu lt * CBC and differential (09/16/2024 12:20 PM EDT) Neutrophils Absolute 8.4 / L Blood Result [facility] Gerri Peterson MD LAB BLOOD ORDERABLES Final Resu lt * Glucose, random (09/16/2024 12:20 PM EDT) Glucose 97 60 - 200 mg/dL Plasma Result [facility] Gerri Peterson MD LAB BLOOD ORDERABLES Final Resu lt * (ABNORMAL) Hepatic function panel (09/16/2024 12:20 PM EDT) Alkaline Phosphatase 144 U/L ALT 40 U/L AST 76 U/L Total Bilirubin 19.8(A) 0.1 - 1.4 mg/dL Protein, Total 6.3 Albumin 3.4(A) 3.5 - 5.0 g/dL Blood us Gerri Peterson MD LAB BLOOD [...] Result No Anaerobes Isolated in 5 Days [facility] Peritoneal Fluid ABDOMEN / Unknown 2024 2:56 PM EDT 09/09/2024 4:12 PM EDT us Ashley JACOME MICROBIOLOGY - GENERAL ORDERA BLES Final Result [facility] [address] [facility] [place] [address], [facility] * PARACENTESIS (09/09/2024 2:19 PM EDT) [...] RODRIGUEZ us Ashley JACOME PROCEDURE/MINOR SURGICAL ORDE LILIA Final Result * (ABNORMAL) Clostridium difficile DNA Amplification (09/09/2024 4:58 AM EDT) Clost. Diff DNA Amp. Positive( A) Negative 09/09/2024 1:20 PM EDT [facility] Comment:Positive indicates t oxigenic C. difficile [...] FLUIDS AND STOOLS ORDERA BLES Final Result [facility] [address] [place], [place] [address] * Clostridium Difficile Toxin A/B [...] ORDERA BLES Final Result Performing Organization Address [facility] Co de Phone Number [facility] [address] [facility]. [address] * Phosphorus, AM (09/05/2024 7:24 AM EDT) Only the most recent of5 resultswithin the time period is included. Phosphorus 2.1 2.1 - 4.7 mg/dL 09/05/2024 8:25 AM EDT [facility] Plasma 09/05/2024 7:24 AM EDT 09/05/2024 7:38 AM EDT Kiet Ramirez MD LAB BLOOD ORDERABLES Denisse l Result Performing Organization Address [facility] Co de Phone Number [facility] [address] [facility]. [address] * (ABNORMAL) Basic Metabolic panel, AM (09/05/2024 7:24 AM EDT) Only the most recent of12 resultswithin the time period is included. Sodium 134 133 - 146 mmol/L 09/05/2024 8:25 AM EDT [facility] Potassium 3.6 3.5 - 5.3 mmol/L 09/05/2024 8:25 AM EDT [facility] Chloride 107 98 - 110 mmol/L 09/05/2024 8:25 AM EDT [facility] CO2 19(L) 21 - 33 mmol/L 09/05/2024 8:25 AM EDT [facility] Anion Gap 8 3 - 16 mmol/L 09/05/2024 8:25 AM EDT [facility] BUN 42(H) 7 - 25 mg/dL 09/05/2024 8:25 AM EDT [facility] Creatinine 2.92(H) 0.60 - 1.30 mg/dL 09/05/2024 8:25 AM EDT [facility] Glucose 108(H) 70 - 100 mg/dL 09/05/2024 8:25 AM EDT [facility] Calcium 8.6 8.6 - 10.3 mg/dL 09/05/2024 8:25 AM EDT [facility] Osmolality, Calculated 289 278 - 305 mOsm/kg 09/05/2024 8:25 AM EDT [facility] EGFR 27 09/05/2024 8:25 AM EDT [facility] Comment:As of 2021, the estimated [...] MD LAB BLOOD ORDERABLES Denisse valle Result [facility] [address] [place] [address], [facility] * ECG 12 lead (MUSE) (09/05/2024 4:57 AM EDT) 09/05/2024 4:5 7 AM EDT Narrative MUSE - 09/06/2024 7:31 AM EDT Ventricular Rate: 78 BPM Atrial Rate: 78 BPM P-R Interval: 196 ms QRS Duration: 100 ms QT: 362 ms QTc: 412 ms P [place]: 69 degrees R [place]: -23 degrees T [place]: 10 degrees Diagnosis Line: NORMAL SINUS RHYTHM ^ NONSPECIFIC T WAVE CHANGE ^ ABNORMAL ECG ^ ^ Confirmed by MD DELPHINE, FLOYD ([id number]) on 09/06/2024 7:31:28 AM Kathie Bauer MD ECG ORDERABLES Final Result Performing Organization Address [facility] de Phone Number MUSE * Fluid Creatinine (09/04/2024 11:01 AM EDT) Creat, Fluid 3.17 mg/dL 09/04/2024 6:15 PM EDT [facility] Comment:Reference range not established for this test. Abdominal Fluid ABDOMEN / Unknown 025 11:01 AM EDT 09/04/2024 5:25 PM EDT Narrative [facility] - 09/04/2024 6:15 PM EDT This assay has been modified from the brick catcher's specifications and has been validated with performance characteristics determined by [facility] in accordance with federal regulations under [...] Final Result Performing Organization Address [facility] de Phone Number [facility] [address] * Protein, Body fluid (09/04/2024 11:01 AM EDT) Only the most recent of3 resultswithin the time period is included. Protein, Fluid <3.0 g/dL 09/04/2024 6:15 PM EDT [facility] Comment:Reference range not established for this test. Ascitic Fluid ABDOMEN / Unknown 04/24/202 5 11:01 AM EDT 09/04/2024 5:25 PM EDT Narrative [facility] - 09/04/2024 6:15 PM EDT This assay has been modified from the brick catcher's specifications and has been validated with performance characteristics determined by [facility] in accordance with federal regulations under [...] Final Result Performing Organization Address [facility] Co de Phone Number [facility] [address] [facility]. [address] * Albumin, fluid (09/04/2024 11:01 AM EDT) Only the most recent of3 resultswithin the time period is included. Albumin, Fluid <1.5 g/dL 09/04/2024 6:15 PM EDT [facility] Comment:Reference range not established for this test. Abdominal Fluid ABDOMEN / Unknown 025 11:01 AM EDT 09/04/2024 5:25 PM EDT Narrative [facility] - 09/04/2024 6:15 PM EDT This assay has been modified from the brick catcher's specifications and has been validated with performance characteristics determined by [facility] in accordance with federal regulations under [...] Final Result Performing Organization Address [facility] de Phone Number [facility] [address] [facility]. [address] * Calcium Free, Serum (09/04/2024 5:22 AM EDT) Free Calcium, Ser 4.93 4.40 - 5.40 mg/dL 09/04/2024 5:44 AM EDT [facility] Comment:Free calcium levels vary inversely with pH by approximately 5% for each 0.1 unit of pH change. Assay results have been normalized to pH = 7.40. Serum 09/04/2024 5:22 AM EDT 09/04/2024 5:27 AM EDT Narrative [facility] - 09/04/2024 5:44 AM EDT This test has been developed and its performance characteristics determined by [facility] which is certified under the Clinical [...] ORDERABLES Denisse l Result Performing Organization Address City/[facility]/ZIP Co de Phone Number [address] * Lipase (09/04/2024 5:22 AM EDT) Only the most recent of4 resultswithin the time period is included. Lipase 40 4 - 82 U/L 09/04/2024 11:[address] [facility] Plasma 09/04/2024 5:22 AM EDT 09/04/2024 11:23 AM EDT Kiet Ramirez MD LAB BLOOD ORDERABLES Denisse l Result [facility] [address] [place] [address] * MRSA/Staph aureus DNA ??? Diagnostic testing for pneumonia (09/03/2024 3:21 PM EDT) MRSA, PCR Negative Negative 09/03/2024 7:48 PM EDT [facility] Staph Aureus, PCR Negative Negative 09/03/2024 7:48 PM EDT [facility] Comment:Test method is a FDA approved amplified DNA assay. Nares Swab BOTH ANTERIOR NARES / Unknown 09/03/2024 3:21 PM EDT 09/03/2024 4:25 PM EDT Narrative [facility] - 09/03/2024 7:48 PM EDT Diagnosis of MRSA Pneumonia->Yes - Place [id number] (this order) Kiet Ramirez MD MICROBIOLOGY - GENERAL OR DERABLES Final Result [facility] [address] [place] [address], [facility] * (ABNORMAL) Urine Drug Screen without Confirmation, STAT (09/03/2024 3:21 PM EDT) Amphetamine, 500 ng/mL Cutoff Negative Negative 09/03/2024 4:17 PM EDT [facility] Barbiturates UR, 300 ng/mL Cutoff Negative Negative 09/03/2024 4:17 PM EDT [facility] Buprenorphine, 5 ng/mL Cutoff Negative Negative 09/03/2024 4:17 PM EDT [facility] Benzodiazepines UR, 300 ng/mL Cutoff Negative Negative 09/03/2024 4:17 PM EDT [facility] Cocaine UR, 300 ng/mL Cutoff Negative Negative 09/03/2024 4:17 PM EDT [facility] Methadone, UR, 300 ng/mL Cutoff Negative Negative 09/03/2024 4:17 PM EDT [facility] Opiates UR, 300 ng/mL Cutoff Presumptive Positive(A) Negative 09/03/2024 4:17 PM EDT [facility] [facility] Oxycodone, 100 ng/mL Cutoff Negative Negative 09/03/2024 4:17 PM EDT [facility] Tricyclic Antidepressants, 300 ng/mL Cutoff Negative Negative 09/03/2024 4:17 PM EDT [facility] Comment:This test has been d eveloped and its performance characteristics determined by [facility] which is certified under the Clinical [...] Cutoff Negative Negative 09/03/2024 4:17 PM EDT [facility] Comment:This is a screening method only and may be associated with false positive and/or false negative results. Results are not definitive without additional confirmatory testing by mass spectrometry. Fentanyl, 2 ng/mL Cutoff Negative Negative 09/03/2024 4:17 PM EDT [facility] Comment:This test has been d eveloped and its performance characteristics determined by [facility] which is certified under the Clinical [...] Final Re sult Performing Organization Address [facility] Co de Phone Number [facility] [address] * Urea Nitrogen, Urine (09/03/2024 3:21 PM EDT) Only the most recent of2 resultswithin the time period is included. Urea Nitrogen, Ur 350 mg/dL 09/03/2024 4:12 PM EDT [facility] Comment:Reference range not established for this test. Urine 09/03/2024 3:21 PM EDT 09/03/2024 3:30 PM EDT Kiet Ramirez MD URINE ORDERABLES Final Re sult Performing Organization Address [facility] de Phone Number [facility] [address] * Hepatitis B Core IgM (09/03/2024 1:43 PM EDT) Hep B Core IgM Nonreactive Nonreactive 09/03/2024 3:50 PM EDT [facility] Serum 09/03/2024 1:43 PM EDT 09/03/2024 2:17 PM EDT Narrative [facility] - 09/03/2024 3:50 PM EDT The result will be immediately released to [facility] when marked final. Do you believe the result release to [facility] should be delayed based on either the Preventing Harm or Privacy exceptions of the Cures Rule?->No IgM anti-HBc not detected. Does not exclude the possibility of exposure to or infection with HBV. Kiet Ramirez MD LAB BLOOD ORDERABLES Denisse l Result Performing Organization Address [facility]/ZIP Co de Phone Number [facility] [address] [facility]. [address] * T4, Free (09/03/2024 1:43 PM EDT) Free T4 0.74 0.61 - 1.76 ng/dL 09/03/2024 6:34 PM EDT [facility] Comment:Biotin megadosing (c onsumption >300 mcg/day) may falsely elevate free T4. When indicated, discontinue megadosing for 1 week and repeat testing. Serum 09/03/2024 1:43 PM EDT 09/03/2024 2:17 PM EDT Kiet Ramirez MD LAB BLOOD ORDERABLES Denisse l Result Performing Organization Address [facility] Co de Phone Number [facility] [address] [facility]. [address] * (ABNORMAL) Urinalysis, Microscopic (09/03/2024 10:28 AM EDT) Only the most recent of3 resultswithin the time period is included. RBC, UA 1 0 - 3 /HPF 09/03/2024 11:51 AM EDT [facility] WBC, UA 1 0 - 5 /HPF 09/03/2024 11:51 AM EDT [facility] Squam Epithel, UA <1 0 - 5 /HPF 09/03/2024 11:51 AM EDT [facility] Bacteria, UA Occasional (A) None Seen /HPF 09/03/2024 11:51 AM EDT [facility] Mucus, UA Present(A) None Seen /HPF 09/03/2024 11:51 AM EDT [facility] Urine 09/03/2024 10:2 8 AM EDT 09/03/2024 11:24 AM EDT Kiet Ramirez MD URINE ORDERABLES Final Re sult [facility] [address] [place] [address], [facility] * (ABNORMAL) Urinalysis-Macroscopic w/Rfx to Microsco (09/03/2024 10:28 AM EDT) Only the most recent of3 resultswithin the time period is included. Color, UA Yellow Yellow,Straw 09/03/2024 11:51 AM EDT [facility] Clarity, UA Cloudy(A) Clear 09/03/2024 11:51 AM EDT [facility] Specific [place], UA >1.035(H) 1.005 - 1.035 09/03/2024 11:51 AM EDT [facility] pH, UA 6.5 5.0 - 8.0 09/03/2024 11:51 AM EDT [facility] Protein, UA Trace(A) Negative mg/dL 09/03/2024 11:51 AM EDT [facility] Glucose, UA Negative Negative mg/dL 09/03/2024 11:51 AM EDT [facility] Ketones, UA Negative Negative mg/dL 09/03/2024 11:51 AM EDT [facility] Bilirubin, UA Small(A) Negative 09/03/2024 11:51 AM EDT [facility] Blood, UA Negative Negative 09/03/2024 11:51 AM EDT [facility] Nitrite, UA Negative Negative 09/03/2024 11:51 AM EDT [facility] Urobilinogen, UA <2.0 0.2 - 1.9 mg/dL 09/03/2024 11:51 AM EDT [facility] Leukocyte Esterase, UA Negative Negative 09/03/2024 11:51 AM EDT [facility] Urine 09/03/2024 10:2 8 AM EDT 09/03/2024 10:55 AM EDT Kiet Ramirez MD URINE ORDERABLES Final Re sult [facility] [address] [facility]. [address] * Lactic acid, venous (09/03/2024 7:55 AM EDT) Only the most recent of3 resultswithin the time period is included. Lactate, Shakeel 1.8 0.5 - 2.2 mmol/L 09/03/2024 8:02 AM EDT [facility] Whole Blood VENOUS STRUCTURE / Unknown 09/03/2024 7:55 AM EDT 09/03/2024 7:59 AM EDT Jarrod Alas MD LAB BLOOD ORDERABLES Final Res ult Performing Organization Address [facility] Co de Phone Number [facility] [address] [facility]. [address] * High Sensitivity Troponin (60min) (09/03/2024 7:18 AM EDT) Only the most recent of2 resultswithin the time period is included. High Sensitivity Troponin 14 0 - 20 ng/L 09/03/2024 7:49 AM EDT [facility] Serum 09/03/2024 7:18 AM EDT 09/03/2024 7:18 AM EDT Narrative [facility] - 09/03/2024 7:49 AM EDT Please draw 60min after time that first troponin is drawn. Rommel Garland MD LAB BLOOD ORDERABLES Final Resul t Performing Organization Address City/[facility]/ZIP Co de Phone Number [facility] [address] [facility]. [address] * Paracentesis (09/03/2024 7:01 AM EDT) Ana [...] infection and pain Alternatives discussed: No treatment [place] protocol: Procedure explained and questions answered to [...] QT: 456 ms QTc: 557 ms P [place]: 76 degrees R [place]: -37 degrees T [place]: 16 degrees Diagnosis Line: INTERPRETATION NOT AVAILABLE--ECG READ IN ER ^ Reconfirmed by PHYSICIAN, ER ([id number]), newspaper copy editor Tonya BUTLER ([id number]) on 09/03/2024 8:00:24 AM us Rommel Galrand MD ECG ORDERABLES Edited Result - Final [...] at 08/14/2024 2:17 PM EDT Mak Armenta [facility] IMG DIAGNOSTIC IMAGING O RDERABLES Final [...] and bowel perforation Alternatives discussed: No treatment [place] protocol: Procedure explained and questions answered to [...] bleeding noted. No blood in fluid removed. Mathieu Becker MD PROCEDURE/MINOR SURGICAL ORDERAB LES Final Result * Triglycerides, Body Fluid (08/14/2024 12:31 PM EDT) Triglycerides, Fluid 18 mg/dL 08/14/2024 1:58 PM EDT [facility] Comment:Reference range not established for this test. Fluid ABDOMEN / Unknown 08/14/2024 12:31 PM EDT 08/14/2024 1:31 PM EDT Narrative [facility] - 08/14/2024 1:58 PM EDT This assay has been modified from the brick catcher's specifications and has been validated with performance characteristics determined by [facility] in accordance with federal regulations under the Clinical Laboratory Act Amendment of 1988. The modification has not been approved by the FDA which has determined that such approval is not necessary. The test is for clinical purposes and should not be regarded as investigational or for research use. Dex Jackman MD BODY FLUIDS AND STOOLS ORDERABL ES Final Result [facility] [address] * Amylase, Body fluid (08/14/2024 12:31 PM EDT) Amylase, Fluid 20 U/L 08/14/2024 2:00 PM EDT [facility] Comment:Reference range not established for this test. Abdominal Fluid ABDOMEN / Unknown 025 12:31 PM EDT 08/14/2024 1:31 PM EDT Narrative [facility] - 08/14/2024 2:00 PM EDT This assay has been modified from the brick catcher's specifications and has been validated with performance characteristics determined by [facility] in accordance with federal regulations under [...] ES Final Result Performing Organization Address [facility]/State/ZIP Co de Phone Number [facility] [address] [place] [address]. [place] [address], [facility] * Cytology, Peritoneal Fluid (08/14/2024 12:00 AM EDT) Peritoneal Fluid 08/14/2024 08/15/19 Narrative [facility] - 08/14/2024 12:00 AM EDT CASE: [id number] PATIENT: BLAIR ANDERSON Clinical History: 39M with decompensated EtOH cirrhosis Clinical Diagnosis: 39M with decompensated EtOH cirrhosis Specimen Source: A. Peritoneal Fluid Gross Description: Received 25ml Yellow Fluid CPT Code(s): 98887 X 1 Additional Information: DIAGNOSIS: Peritoneal Fluid (ThinPrep only): NO MALIGNANT CELLS IDENTIFIED INFLAMMATION: Mild acute and chronic inflammation Initial Evaluation performed by Jess CHAMBERS(ASCP) Guest Service Representative Electronically signed 08/15/2024 11:12:00 AM The Diagnostician signing this report is located at [facility], [address] [place] [address], [facility], , CLIA ID: [id number] Final Diagnosis performed by RORO CABALLERO MD, PhD Pathologist Electronically signed 08/15/2024 11:27:00 AM The Pathologist signing this report is located at [facility], [address] [place] [address], [id number], , CLIA ID: [id number] Dex Jackman MD PATHOLOGY/CYTOLOGY ORDERABLES F inal [...] when the images were obtained by the boiler operator AND/OR I reviewed the images after they were obtained. I have reviewed the interpretation by the boiler operator, made any necessary edits and agree [...] ascites Views Obtained: Select all areas imaged (office services representative images/clips obtained): abdomen Findings: Other Findings: Moderate volume ascites noted Interpretation: Positive FAST FAST interpretation details: intra-abdominal fluid seen Attending Attestation: I (the Attending) was present when the images were obtained by the boiler operator AND/OR I reviewed the images after they were obtained. I have reviewed the interpretation by the boiler operator, made any necessary edits and agree [...] EXAM: US ABDOMEN LIMITED EXAM: US DUPLEX [id number] COMPLETE INDICATION: Other - Must specify in [...] EXAM: US ABDOMEN LIMITED EXAM: US DUPLEX [id number] COMPLETE INDICATION: Other - Must specify in [...] 9:41 AM EDT us Luisito Kerr MD [facility] US ORDERABLES Denisse l Result * US [...] 7:33 AM EDT us Doron Botello MD [facility] US ORDERABLES Final Re sult * Potassium (07/26/2024 6:44 AM EDT) Only the most recent of3 resultswithin the time period is included. Potassium 3.5 3.5 - 5.3 mmol/L 07/26/2024 7:34 AM EDT [facility] Plasma 07/26/2024 6:44 AM EDT 07/26/2024 6:54 AM EDT us Mariola Farrell MD LAB BLOOD ORDERABLES Final Res ult [facility] [address] * ED HCV Ab Reflex To HCV Quant (07/25/2024 3:35 PM EDT) HCV Ab Nonreactive Nonreactive 07/25/2024 6:17 PM EDT [facility] Comment:Health Department no tified in accordance with reportable infectious disease guidelines. HCVAB Number 0.11 0.00 - 0.79 S/CO 07/25/2024 6:17 PM EDT [facility] Serum 07/25/2024 3:35 PM EDT 07/25/2024 3:49 PM EDT us Sanchez Mathews MD LAB BLOOD ORDERABLES Final Resul t Performing Organization Address [facility] Co de Phone Number [facility] [address] [place] [address], [facility] from Last 3 Months Additional Health Concerns Infection Onset Date Last Indicated C. difficile 09/09/2024 09/09/2024 Insurance [facility] GLO[facility] Advance Directives For more information, please contact: [phone] * Full Code (Latest Code Status on File) Date Activated Date Inactivated Comments 10/05/2024 11:47 PM 10/17/2024 2:49 PM * Full Code Date Activated Date Inactivated Comments 09/03/2024 9:42 AM 09/09/2024 10:30 PM * Full Code Date Activated Date Inactivated Comments 08/12/2024 9:55 PM 08/19/2024 4:56 PM * Full Code Date Activated Date Inactivated Comments 07/25/2024 10:25 PM 07/29/2024 6:17 PM Care Teams Sawyer Cork Slabs Relationship Specialty Start Date End Date Enedina Mcguire NP [address] [place] [address] PCP - General Internal Medicine 10/05/24
--- OUTSIDE RECORDS SUMMARY | 2024-10-22 08:04 | XMS_ITS | Encounter Summary ---
Author Organization [facility] Address [address] [place] [address] Care Team Providers Care Solution Design And Analysis Manager Name Role Phone Enedina Mcguire NP Primary Care Provider [phone] Source Comments This information has been disclosed [...] release of HIV test results or diagnoses. [id number] Health Encounter Details Date Type Department Care Team (Late st Contact Info) Description 10/14/2024 Chart Note [facility] at [address] [place] [phone] Dean Robles [facility] [id number] Social History Tobacco Use Types Packs/Day Years Used Date Smoking Tobacco: Former Cigarettes Smokeless Tobacco: Current Alcohol Use Standard Drinks/Week Comments Yes 0 (1 standard drink = 0.6 oz pure alcohol) History of alcohol abuse, reports no use in 3 week- typically endorses use as 4 glasses of wine a days Utilities Answer Date Recorded In the past 12 months has [employer], [employer], oil, or water [employer] threatened to shut off services in your [...] - 10/14/2024 9:49 AM EDT Dean berman [facility] [id number] Case opened TAYLOR Almeida ph [phone] Fx [phone] Liver requested urgent review for slk Approved by [facility] letter to files documented in this encounter Plan of Treatment Upcoming Encounters Date Type Department Care Team (Late st Contact Info) Description 12/05/2024 8:01 AM EDT Hospital Encounter [facility] ENDOSCOPY [address] [place] [address] Chris Orosco MD [address] [place] [phone] 12/05/2024 8:01 AM EDT - 12/05/2024 8:31 AM EDT Surgery [facility] ENDOSCOPY [address] [place] [address] Chris Orosco MD [address] [place] [phone] EGD Scheduled Procedures Name Priority Associated Diagnoses [...] documented as of this encounter Care Teams Solution Design And Analysis Manager Relationship Specialty Start Date End Date Enedina Mcguire NP [address] [place] [address] PCP - General Internal Medicine 10/05/24 documented as of this encounter
--- OUTSIDE RECORDS SUMMARY | 2024-10-22 08:06 | XMS_ITS | Encounter Summary ---
Author Organization [facility] Address [address] [place] [address] Care Team Providers Care Manager Scientific Name Role Phone Enedina Mcguire NP Primary Care Provider [phone] Source Comments This information has been disclosed [...] release of HIV test results or diagnoses. [id number] Health Encounter Details Date Type Department Care Team (Late st Contact Info) Description 10/07/2024 Chart Note [facility] Liver Transplant at [address] [place] [phone] Alexandro Sams, RN Spoke with Julien Anderson [...] Recorded In the past 12 months has [email or web address], gas, oil, or water [employer] threatened to shut off services in your [...] Encounter [facility] ENDOSCOPY [address] [place] [address] Chris Orosco MD [address] [place] [phone] 12/05/2024 8:01 AM EDT - 12/05/2024 8:31 AM EDT Surgery [facility] ENDOSCOPY [address] [place] [address] Chris Orosco MD [address] [place] [phone] EGD Scheduled Procedures Name Priority Associated Diagnoses Date/Ti me EGD Cirrhosis of liver with ascites, unspecified hepatic cirrhosis type ([facility]) 12/05/2024 8:01 AM EDT documented as of this encounter Visit Diagnoses Not on filedocumented in this encounter Additional Health Concerns Infection Onset Date Last Indicated Resolved Time C. difficile 09/09/2024 09/09/2024 Rule Out C. difficile 10/05/2024 10/05/20242024 10:04 AM EDT Assessment Noted Time PHQ-9 Depression Total Score: 17 025 11:00 AM EDT documented as of this encounter Care Teams Manager Scientific Relationship Specialty Start Date End Date Enedina Mcguire NP [address] [place] [address] PCP - General Internal Medicine 10/05/24 documented as of this encounter
--- OUTSIDE RECORDS SUMMARY | 2024-10-22 08:06 | XMS_ITS | Encounter Summary ---
Author Organization [facility] Address [facility] [place] [address] Care Team Providers Care Mitigation Supervisor Name Role Phone Enedina Mcguire NP Primary Care Provider [phone] Source Comments This information has been disclosed [...] release of HIV test results or diagnoses. [id number] Reason for Visit * Reason Comments After Hours Call Encounter Details Date Type Department Care Team ([facility] Contact Info) Description 10/05/2024 Telephone [facility] PATIENT SERVICES [address] [place] [address] Unknown, Attending Provider After Hours [...] In the past 12 months has [employer], gas, oil, or water [employer] threatened to shut off services in your [...] time in the past 12 m [place], were you homeless or living in a [...] local ER w/ plans to transfer to [facility] if higher level of care required. Will [...] Relationship of Caller to Patient and Callback: [phone] Patient of: DR. LINARES Nature of Call: STATES PT IS SHOWING SIGNS OF CONFUSION. PLEASE ADVISE. Dispensing Operator Provider Contacted: DR. RETANA Time and Method [...] 12/05/2024 8:01 AM EDT Hospital Encounter [facility] ENDOSCOPY [address] [place] [address] Chris Orosco MD [address] [place] [phone] 12/05/2024 8:01 AM EDT - 12/05/2024 8:31 AM EDT Surgery [facility] ENDOSCOPY [address] [place] [phone] Chris Orosco MD [address] [place] [phone] EGD Scheduled Procedures Name Priority Associated Diagnoses [...] documented as of this encounter Care Teams Mitigation Supervisor Relationship Specialty Start Date End Date Enedina Mcguire NP [address] [place] [address] PCP - General Internal Medicine 10/05/24 documented as of this encounter
--- OUTSIDE RECORDS SUMMARY | 2024-10-22 08:06 | XMS_ITS | Encounter Summary ---
Author Organization [facility] Address [address] [place] [address] Care Team Providers Care Milk Sampler Name Role Phone Enedina Mcguire NP Primary Care Provider [phone] Source Comments This information has been disclosed [...] release of HIV test results or diagnoses. [id number] Encounter Details Date Type Department Care Team (Late st Contact Info) Description 10/09/2024 Social Work [facility] Liver Transplant at [address] [phone] Kaylin Willard MSW Social History Tobacco Use [...] Recorded In the past 12 months has [employer], gas, oil, or water [employer] threatened to shut off services in your [...] Liver Transplant Patient has been referred to [facility] for liver transplant evaluation. 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 Patient is engaged in CD treatment with: [facility] [phone] SW met with patient and spouse at [...] during hospitalization pending mental status. NUBIA Barros, [facility] documented in this encounter Plan of Treatment Upcoming Encounters Date Type Department Care Team (Late st Contact Info) Description 12/05/2024 8:01 AM EDT Hospital Encounter [facility] ENDOSCOPY [address] [place] [phone] Chris Orosco MD [address] [place] [phone] 12/05/2024 8:01 AM EDT - 12/05/2024 8:31 AM EDT Surgery [facility] ENDOSCOPY [address] [place] [phone] Chris Orosco MD [address] [place] [address] EGD Scheduled Procedures Name Priority Associated Diagnoses Date/Ti nh EGD Cirrhosis of liver with ascites, unspecified hepatic cirrhosis type ([facility]) 12/05/2024 8:01 AM EDT documented as of this encounter Visit Diagnoses Not on filedocumented in this encounter Additional Health Concerns Infection Onset Date Last Indicated Resolved Time C. difficile 09/09/2024 09/09/2024 Assessment Noted Time PHQ-9 Depression Total Score: 17 09/29/ 025 11:00 AM EDT documented as of this encounter Care Teams Milk Sampler Relationship Specialty Start Date End Date Enedina Mcguire NP [address] [place] [address] PCP - General Internal Medicine 10/05/24 documented as of this encounter
--- OUTSIDE RECORDS SUMMARY | 2024-10-22 08:06 | XMS_ITS | Encounter Summary ---
Author Organization [facility] Address [address] [place] [address] Care Team Providers Care Full Stack Net Developer Name Role Phone Enedina Mcguire NP Primary Care Provider [phone] Source Comments This information has been disclosed [...] release of HIV test results or diagnoses. [id number] Health Encounter Details Date Type Department Care Team (Late st Contact Info) Description 10/07/2024 Chart Note [facility] Kidney Transplant at [address] [place] [phone] Anny Cote RN Received notice of [...] Recorded In the past 12 months has [employer], gas, oil, or water [employer] threatened to shut off services in your [...] Description 12/05/2024 8:01 AM EDT Hospital Encounter [facility] ENDOSCOPY [address] [place] [address] Chris Orosco MD [address] [place] [phone] 12/05/2024 8:01 AM EDT - 12/05/2024 8:31 AM EDT Surgery [facility] ENDOSCOPY [address] [place] [address] Chris Orosco MD [address] [place] [phone] EGD Scheduled Procedures Name Priority Associated Diagnoses Date/Ti me EGD Cirrhosis of liver with ascites, unspecified hepatic cirrhosis type ([facility]) 12/05/2024 8:01 AM EDT documented as of this encounter Visit Diagnoses Not on filedocumented in this encounter Additional Health Concerns Infection Onset Date Last Indicated Resolved Time C. difficile 09/09/2024 09/09/2024 Rule Out C. difficile 10/05/2024 10/05/20242024 10:04 AM EDT Assessment Noted Time PHQ-9 Depression Total Score: 17 025 11:00 AM EDT documented as of this encounter Care Teams Full Stack Net Developer Relationship Specialty Start Date End Date Enedina Mcguire NP [address] [place] [address] PCP - General Internal Medicine 10/05/24 documented as of this encounter
--- OUTSIDE RECORDS SUMMARY | 2024-10-22 08:06 | XMS_ITS | Encounter Summary ---
Author Organization [facility] Address [address] [place] [address] Care Team Providers Care Asphalt Raker Name Role Phone Enedina Mcguire NP Primary Care Provider [phone] Source Comments This information has been disclosed [...] release of HIV test results or diagnoses. [id number] Health Encounter Details Date Type Department Care Team (Late st Contact Info) Description 10/09/2024 Chart Note [facility] Kidney Transplant at [address] [place] [phone] Dean Robles [facility] [address] Social History Tobacco Use Types Packs/Day Years Used Date Smoking Tobacco: Former Cigarettes Smokeless Tobacco: Current Alcohol Use Standard Drinks/Week Comments Yes 0 (1 standard drink = 0.6 oz pure alcohol) History of alcohol abuse, reports no use in 3 week- typically endorses use as 4 glasses of wine a days Utilities Answer Date Recorded In the past 12 months has [employer], [employer], oil, or water [employer] threatened to shut off services in your [...] - 10/09/2024 10:37 AM EDT Dean berman [facility] [address] Called Cammie Chaves [phone] Advised of brandon martínez she was aware Assigning a cm to call me Requested all clinical Advised this is now a SLK Pending cm call back documented in this encounter Plan of Treatment Upcoming Encounters Date Type Department Care Team (Late st Contact Info) Description 12/05/2024 8:01 AM EDT Hospital Encounter [facility] ENDOSCOPY [address] [place] [address] Chris Orosco MD [address] [place] [phone] 12/05/2024 8:01 AM EDT - 12/05/2024 8:31 AM EDT Surgery [facility] ENDOSCOPY [address] [place] [address] Chris Orosco MD [address] [place] [phone] EGD Scheduled Procedures Name Priority Associated Diagnoses Date/Ti me EGD Cirrhosis of liver with ascites, unspecified hepatic cirrhosis type ([facility]) 12/05/2024 8:01 AM EDT documented as of this encounter Visit Diagnoses Not on filedocumented in this encounter Additional Health Concerns Infection Onset Date Last Indicated Resolved Time C. difficile 09/09/2024 09/09/2024 Assessment Noted Time PHQ-9 Depression Total Score: 17 025 11:00 AM EDT documented as of this encounter Care Teams Asphalt Raker Relationship Specialty Start Date End Date Enedina Mcguire NP [address] [place] [address] PCP - General Internal Medicine 10/05/24 documented as of this encounter
--- OUTSIDE RECORDS SUMMARY | 2024-10-22 08:06 | XMS_ITS | Encounter Summary ---
Author Organization [facility] Address [address] [place] [address] Care Team Providers Care Farmworker Turkey Farm Name Role Phone Enedina Mcguire NP Primary Care Provider [phone] Source Comments This information has been disclosed [...] release of HIV test results or diagnoses. [id number] Health Encounter Details Date Type Department Care Team (Late st Contact Info) Description 10/09/[address] [facility] Kidney Transplant at [address] [place] [phone] Dean Robles [facility] [phone] call from Elle [facility] fx [phone] Social History Tobacco Use Types Packs/Day Years Used Date Smoking Tobacco: Former Cigarettes Smokeless Tobacco: Current Alcohol Use Standard Drinks/Week Comments Yes 0 (1 standard drink = 0.6 oz pure alcohol) History of alcohol abuse, reports no use in 3 week- typically endorses use as 4 glasses of wine a days Utilities Answer Date Recorded In the past 12 months has e [employer], gas, oil, or water company threatened to [...] - 10/09/2024 11:57 AM EDT Dean berman [facility] [address] call from Elle the R fx [phone] Set her all clinical Rquesting a urgent review for liver txp UMR/optum case opened 10/05/24 Pends response documented in this encounter Plan of Treatment Upcoming Encounters Date Type Department Care Team (Late st Contact Info) Description 12/05/2024 8:01 AM EDT Hospital Encounter [facility] ENDOSCOPY [address] [place] [phone] Chris Orosco MD [address] [place] [phone] 12/05/2024 8:01 AM EDT - 12/05/2024 8:31 AM EDT Surgery [facility] ENDOSCOPY [address] [place] [phone] Chris Orosco MD [address] [place] [phone] EGD Scheduled Procedures Name Priority Associated Diagnoses Date/Ti me EGD Cirrhosis of liver with ascites, unspecified hepatic cirrhosis type ([facility]-HCC) 12/05/2024 8:01 AM EDT documented as of this encounter Visit Diagnoses Not on filedocumented in this encounter Additional Health Concerns Infection Onset Date Last Indicated Resolved Time C. difficile 09/09/2024 09/09/2024 Assessment Noted Time PHQ-9 Depression Total Score: 17 025 11:00 AM EDT documented as of this encounter Care Teams Farmworker Turkey Farm Relationship Specialty Start Date End Date Enedina Mcguire NP [address] [place] [address] PCP - General Internal Medicine 5/25/25 documented as of this encounter
--- OUTSIDE RECORDS SUMMARY | 2024-10-22 08:06 | XMS_ITS | Encounter Summary ---
Author Organization [facility] Address [address] [place] [address] Care Team Providers Care In Home Sales Consultant Name Role Phone Enedina Mcguire NP Primary Care Provider [phone] Source Comments This information has been disclosed [...] release of HIV test results or diagnoses. [id number] Health Encounter Details Date Type Department Care [...] Recorded In the past 12 months has [employer], oil, or water [employer] threatened to shut off services in your [...] 12/05/2024 8:01 AM EDT Hospital Encounter [facility] ENDOSCOPY [address] [place] [address] Chris Orosco MD [address] [place] [phone] 12/05/2024 8:01 AM EDT - 12/05/2024 8:31 AM EDT Surgery [facility] ENDOSCOPY [address] [place] [phone] Chris Orosco MD [address] [place] [phone] EGD Scheduled Procedures Name Priority Associated Diagnoses [...] documented as of this encounter Care Teams In Home Sales Consultant Relationship Specialty Start Date End Date Enedina Mcguire NP [address] [place] [address] PCP - General Internal Medicine 10/05/24 documented as of this encounter
--- OUTSIDE RECORDS SUMMARY | 2024-10-22 08:06 | XMS_ITS | Encounter Summary ---
Author Organization [facility] Address [facility] [place] [address] Care Team Providers Care Wax Specialist Name Role Phone Unavailable Primary Care [...] release of HIV test results or diagnoses. [id number] Reason for Visit * Reason Comments Appointment Encounter Details Date Type Department Care Team (Late st Contact Info) Description 09/25/2024 Telephone [facility] Interventional Radiology [address] [place] [phone] [place], [place] Appointment Social History [...] Recorded In the past 12 months has [employer], gas, oil, or water [employer] threatened to shut off services in your [...] living in a alf (including now)? No 09/05/2024 Yearly Questionnaire Answer [...] IR Procedure, lvm to return call to [phone] opt 1 to schedule. documented in this encounter Plan of Treatment Upcoming Encounters Date Type Department Care Team (Late st Contact Info) Description 12/05/2024 8:01 AM EDT Hospital Encounter [facility] ENDOSCOPY [address] [place] [address] Chris Orosco MD [address] [place] [phone] 12/05/2024 8:01 AM EDT - 12/05/2024 8:31 AM EDT Surgery [facility] ENDOSCOPY [address] [place] [address] Chris Orosco MD [address] [place] [phone] EGD Scheduled Procedures Name Priority Associated Diagnoses Date/Ti me EGD Cirrhosis of liver with ascites, unspecified hepatic cirrhosis type ([facility]) 12/05/2024 8:01 AM EDT documented as of this encounter Visit Diagnoses Not on filedocumented in this encounter Additional Health Concerns Infection Onset Date Last Indicated Resolved Time C. difficile 09/09/2024 09/09/2024 documented as of this encounter
--- OUTSIDE RECORDS SUMMARY | 2024-10-22 08:06 | XMS_ITS | Encounter Summary ---
Author Organization [facility] Address [address] [place] [address] Care Team Providers Care Feed Mill Operator Name Role Phone Unavailable Primary Care [...] release of HIV test results or diagnoses. [id number] Health Encounter Details Date Type Department Care Team (Late st Contact Info) Description 09/24/2024 Orders Only [facility] [address] [place] [phone] Gerri Peterson MD [address] [place] [address] Cirrhosis of liver with ascites, [...] Recorded In the past 12 months has [employer], gas, oil, or water company threatened [...] Description 12/05/2024 8:01 AM EDT Hospital Encounter [facility] ENDOSCOPY [address] [place] [address] Chris Orosco MD [address] [place] [phone] 12/05/2024 8:01 AM EDT - 12/05/2024 8:31 AM EDT Surgery [facility] ENDOSCOPY [address] [place] [phone] Chris Orosco MD [address] [place] [phone] EGD Scheduled Procedures Name Priority Associated Diagnoses [...]
--- OUTSIDE RECORDS SUMMARY | 2024-10-22 08:06 | XMS_ITS | Encounter Summary ---
Author Organization [facility] Address [address] [place] [address] Care Team Providers Care Music Grapher Name Role Phone Unavailable Primary Care Provider [...] release of HIV test results or diagnoses. [id number] Health Encounter Details Date Type Department Care Team (Late st Contact Info) Description 09/25/2024 Orders Only [facility] Liver Transplant at [address] [phone] Mary [place], RN Pre-transplant evaluation for chronic [...] Recorded In the past 12 months has [employer], gas, oil, or water [employer] threatened to shut off services in [...] Description 12/05/2024 8:01 AM EDT Hospital Encounter [facility] ENDOSCOPY [address] [place] [address] Chris Orosco MD [address] [place] [phone] 12/05/2024 8:01 AM EDT - 12/05/2024 8:31 AM EDT Surgery [facility] ENDOSCOPY [address] [place] [phone] Chris Orosco MD [address] [place] [phone] EGD Scheduled Procedures Name Priority Associated Diagnoses Date/Ti me EGD Cirrhosis of liver with ascites, unspecified hepatic cirrhosis type ([facility]-HCC) 12/05/2024 8:01 AM EDT documented as of this encounter Results * Urine Drug Comprehensive Panel, Confirmation (09/25/2024 11:55 AM EDT) BARBITURATES NOT PRESENT 09/29/2024 12:39 PM EDT [facility] BENZODIAZEPINES NOT PRESENT 09/30/19 12:39 PM EDT [facility] CANNABINOIDS NOT PRESENT 09/29/2024 12:39 PM EDT [facility] FLIGHT TEST SHOP MECHANIC STIMULANTS NOT PRESENT 12:39 PM EDT [facility] [...] - 7.8 09/26/2024 11:30 AM EDT [facility] Specific [place] 1.010 1.003 - 1.035 09/26/2024 11:30 AM EDT [facility] Urine 09/25/2024 11:5 5 AM EDT 09/25/2024 12:19 PM EDT Narrative [facility] - 09/29/2024 12:39 PM EDT This test has been developed and its performance characteristics determined by [facility] which is certified under the Clinical [...] ORDERABLES Final Result Performing Organization Address City/State/[facility] Co de Phone Number [facility] [address] * Phosphatidylethanol Confirmation, B (09/25/2024 11:55 AM EDT) PETH 16:0/18.1 (POPETH) <10 Cutoff: 10 ng/mL 09/29/2024 12:24 PM EDT [facility] Comment: Phosphatidylethanol (PEth) homologues result interpretation PEth [...] 10 ng/mL 09/29/2024 12:24 PM EDT [facility] Comment: PEth 16:0/18:2 (PLPEth) Reference ranges are not well established PEth Interpretation Negative. 05/19 /2025 12:24 PM EDT [facility] [...] Drug Administration. Test Performed by: [facility] [address] [place] [address] Services Advisor: Kathy Ortiz Ph.D.; CLIA# [id number] Whole Blood 09/25/2024 11:5 5 AM EDT 09/29/2024 12:24 PM EDT Chinedu Sidhu MD LAB BLOOD ORDERABLES Final Re sult [facility] [address] [facility]. [address] documented in this encounter Visit Diagnoses [...]
--- OUTSIDE RECORDS SUMMARY | 2024-10-22 08:06 | XMS_ITS | Encounter Summary ---
Author Organization [facility] Address [address] [place] [address] Care Team Providers Care American History Teacher Name Role Phone Unavailable Primary [...] release of HIV test results or diagnoses. [id number] Health Encounter Details Date Type Department Care Team (Late st Contact Info) Description 09/26/2024 Abstract [facility] [address] [place] [phone] Gerri Peterson MD [address] [place] [address] Social History Tobacco Use Types Packs/Day Years Used Date Smoking Tobacco: Former Cigarettes Smokeless Tobacco: Current Alcohol Use Standard Drinks/Week Comments Yes 0 (1 standard drink = 0.6 oz pure alcohol) History of alcohol abuse, reports no use in 3 week- typically endorses use as 4 glasses of wine a days Utilities Answer Date Recorded In the past 12 months has [facility] [employer], gas, oil, or water [employer] threatened to shut off services in [...] living in a custodial (including now)? No 09/05/2024 Yearly Questionnaire Answer [...] Description 12/05/2024 8:01 AM EDT Hospital Encounter [facility] ENDOSCOPY [address] [place] [phone] Chris Orosco MD [address] [place] [phone] 12/05/2024 8:01 AM EDT - 12/05/2024 8:31 AM EDT Surgery [facility] ENDOSCOPY [address] [place] [phone] Chris Orosco MD [address] [place] [phone] EGD Scheduled Procedures Name Priority Associated Diagnoses Date/Ti me EGD Cirrhosis of liver with ascites, unspecified hepatic cirrhosis type ([facility]-HCC) 12/05/2024 8:01 AM EDT documented as of this encounter Visit Diagnoses Not on filedocumented in this encounter Additional Health Concerns Infection Onset Date Last Indicated Resolved Time C. difficile 09/09/2024 09/09/2024 Assessment Noted Time PHQ-9 Depression Total Score: 16 05/16/2 025 11:00 AM EDT documented as of this encounter
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
--- OUTSIDE RECORDS SUMMARY | 2024-10-22 08:06 | XMS_ITS | Encounter Summary ---
Author Organization [facility] Address [address] [place] [address] Care Team Providers Care Waist Cutter Name Role Phone Enedina Mcguire NP Primary Care Provider [phone] Source Comments This information has been disclosed [...] release of HIV test results or diagnoses. [id number] Health Encounter Details Date Type Department Care Team (Late st Contact Info) Description 10/07/2024 Chart Note [facility] Kidney Transplant at [address] [place] [phone] Chey Nicole MA This MA received new [...] In the past 12 months has e [employer], gas, oil, or water [employer] threatened to shut off services in your [...] PT. Will FU once financially cleared. An [employer] fax was sent to [facility] and or referring office to notify of referral acceptance. documented in this encounter Plan of Treatment Upcoming Encounters Date Type Department Care Team (Late st Contact Info) Description 12/05/2024 8:01 AM EDT Hospital Encounter [facility] ENDOSCOPY [address] [place] [address] Chris Orosco MD [address] [place] [phone] 12/05/2024 8:01 AM EDT - 12/05/2024 8:31 AM EDT Surgery [facility] ENDOSCOPY [address] [place] [address] Chris Orosco MD [address] [place] [phone] EGD Scheduled Procedures Name Priority Associated Diagnoses Date/Ti me EGD Cirrhosis of liver with ascites, unspecified hepatic cirrhosis type ([facility]-HCC) 12/05/2024 8:01 AM EDT documented as of this encounter Visit Diagnoses Not on filedocumented in this encounter Additional Health Concerns Infection Onset Date Last Indicated Resolved Time C. difficile 09/09/2024 09/09/2024 Rule Out C. difficile 10/05/2024 10/05/20242024 10:04 AM EDT Assessment Noted Time PHQ-9 Depression Total Score: 17 09/29/2 025 11:00 AM EDT documented as of this encounter Care Teams Waist Cutter Relationship Specialty Start Date End Date Enedina Mcguire NP [address] [place] [address] PCP - General Internal Medicine 10/05/24 documented as of this encounter
--- OUTSIDE RECORDS SUMMARY | 2024-10-22 08:06 | XMS_ITS | Encounter Summary ---
Author Organization [facility] Address [address] [place] [address] Care Team Providers Care Cross Tie Turner Name Role Phone Enedina Mcguire NP Primary Care Provider [phone] Source Comments This information has been disclosed [...] release of HIV test results or diagnoses. [id number] Health Encounter Details Date Type Department Care Team (Late st Contact Info) Description 10/07/2024 Chart Note [facility] Kidney Transplant at [address] [address] Anny Cote RN Simultaneous Liver-Kidney Transplant Referral [...] Recorded In the past 12 months has [employer], gas, oil, or water [employer] threatened to shut off services in your [...] Financial Clearance is pending sent to financial reporting director [x] HLA testing to be ordered once [...] Dialysis Unit: (Not currently on dialysis) Outside sports anchor: Dr. Curran, Yovanny Nicholson MD Routed to kidney referral intake team. documented in this encounter Plan of Treatment Upcoming Encounters Date Type Department Care Team (Late st Contact Info) Description 12/05/2024 8:01 AM EDT Hospital Encounter [facility] ENDOSCOPY [address] [place] [address] Chris Orosco MD [address] [place] [phone] 12/05/2024 8:01 AM EDT - 12/05/2024 8:31 AM EDT Surgery [facility] ENDOSCOPY [address] [place] [address] Chris Orosco MD [address] [place] [phone] EGD Scheduled Procedures Name Priority Associated Diagnoses Date/Ti me EGD Cirrhosis of liver with ascites, unspecified hepatic cirrhosis type ([facility]) 12/05/2024 8:01 AM EDT documented as of this encounter Visit Diagnoses Not on filedocumented in this encounter Additional Health Concerns Infection Onset Date Last Indicated Resolved Time C. difficile 09/09/2024 09/09/2024 Rule Out C. difficile 10/05/2024 10/05/20242024 10:04 AM EDT Assessment Noted Time PHQ-9 Depression Total Score: 17 025 11:00 AM EDT documented as of this encounter Care Teams Cross Tie Turner Relationship Specialty Start Date End Date Enedina Mcguire NP [address] [place] [address] PCP - General Internal Medicine 10/05/24 documented as of this encounter
--- OUTSIDE RECORDS SUMMARY | 2024-10-22 08:06 | XMS_ITS | Encounter Summary ---
Author Organization [facility] Address [address] [place] [address] Care Team Providers Care Balance Wheel Arm Burnisher Name Role Phone Unavailable Primary Care Provider [...] release of HIV test results or diagnoses. [id number] Health Encounter Details Date Type Department Care Team (Late st Contact Info) Description 09/30/2024 Social Work [facility] Liver Transplant at [address] [address] Kaylin Willard MSW Social History Tobacco Use [...] Recorded In the past 12 months has [employer], gas, oil, or water company threatened to [...] Liver Transplant Patient has been referred to [facility] for liver transplant evaluation. Patient was evaluated by transplant food service worker hospital on 09/25/2024 and it was determined that patient will need to complete 12 weeks of CD treatment. Patient is engaged in CD treatment with: [facility] Mary Marie [phone] Patient has been attending an IOP program [...] treatment for him. Thank you NUBIA Barros, GENERAL DOC documented in this encounter Plan of Treatment Upcoming Encounters Date Type Department Care Team (Late st Contact Info) Description 12/05/2024 8:01 AM EDT Hospital Encounter [facility] ENDOSCOPY [address] [place] [address] Chris Oorsco MD [address] [place] [phone] 12/05/2024 8:01 AM EDT - 12/05/2024 8:31 AM EDT Surgery [facility] ENDOSCOPY [address] [place] [address] Chris Orosco MD [address] [place] [phone] EGD Scheduled Procedures Name Priority Associated Diagnoses [...]
--- OUTSIDE RECORDS SUMMARY | 2024-10-22 08:08 | XMS_ITS | Encounter Summary ---
Author Organization [facility] Address [facility] [place] [address] Care Team Providers Care Ammonia Operator Name Role Phone Unavailable Primary Care [...] release of HIV test results or diagnoses. [id number] Reason for Visit * Reason Comments Appointment Encounter Details Date Type Department Care Team (Late st Contact Info) Description 09/03/2024 Telephone [facility] Interventional Radiology [address] [place] [phone] De Leon, Shamone Appointment Social History [...] Recorded In the past 12 months has [employer], gas, oil, or water [employer] threatened to shut off services in [...] IR Procedure, lvm to return call to [phone] opt 1 to schedule. documented in this encounter Plan of Treatment Upcoming Encounters Date Type Department Care Team (Late st Contact Info) Description 12/05/2024 8:01 AM EDT Hospital Encounter [facility] ENDOSCOPY [address] [place] [address] Chris Orosco MD [address] [place] [phone] 12/05/2024 8:01 AM EDT - 12/05/2024 8:31 AM EDT Surgery [facility] ENDOSCOPY [address] [place] [address] Chris Orosco MD [address] [place] [phone] EGD Scheduled Procedures Name Priority Associated Diagnoses Date/Ti me EGD Cirrhosis of liver with ascites, unspecified hepatic cirrhosis type (CMS-HCC) 12/05/2024 8:01 AM EDT documented as of this encounter Visit Diagnoses Not on filedocumented in this encounter
--- OUTSIDE RECORDS SUMMARY | 2024-10-22 08:08 | XMS_ITS | Data Portability ---
Author Organization [facility],, Main Office Address [address] [place] [address] Assessment No assessment recorded. Plan of Treatment [...] Available No t Available BD Regular Bevel [place] 18 gauge x 1 active Not Available [...] Updated DateTime 3 193.04 cm 29.1 kg/m2 059838. 58 g 112 /min 97.7 [degF] 141 mm[Hg] 84 mm[Hg] [facility], 3 13:14:11 Date Recorded Body height Body mass index (BMI) Body weight Heart rate Body temperature Systolic blood pressure Diastolic blood pressure Provider Name and Address Organization Details Last Updated DateTime 4 193.04 cm 30.4 kg/m2 218277. 09 g 92 /min 97.5 [degF] 176 mm[Hg] 104 mm[Hg] [facility], 4 14:06:31 Date Recorded Body temperature Provider Name a nd Address Organization Details Last Updated DateTime 12/27/2020 99.5 [degF] Cuca Strickland [facility], 12/27/2020 13:41:33 Date Recorded Body weight Heart rate Body temperature Systolic blood pressure Diastolic blood pressure Provider Name and Address Organization Details Last Updated DateTime 04/03/2022 620459. 95 g 93 /min 97.6 [degF] 114 [...] SNOMED-CT Code Diagnosis ICD10 Code Diagnosis Note 47557 Yung Felipe DO Main Office [address] [place] [address] 12/27/2020 13:24:24 12/27/2020 14:00:19 Evaluation of semen fertility 208463381 N46.9 semen analysis 32639 Yung Felipe DO Main Office [address] [place] [address] 07/04/2021 14:47:56 07/04/2021 16:00:05 Evaluation of semen fertility 411247219 N46.9 semen analysis 75010 Yung Felipe DO Main Office [address] [place] [address] 05/31/2022 13:04:00 05/31/2022 13:50:01 Evaluation of semen fertility 706029696 N46.9 semen analysis + viability: analysis by Dr. Ruiz 50674 Yung Felipe DO Main Office [address] [place] [address] 10/22/2023 13:58:48 10/22/2023 14:31:18 Evaluation of semen fertility 631678575 N46.9 semen analysis + viability: analysis by [...] Yung Felipe DO [address], [place], [address], [facility] GYNECOLOG[facility], 08/06/2021 23:24:22 05/31/2022 text/html semen analysis + viability [address], [place], [address], [facility]YNECOLOG[facility], 05/31/2022 13:57:30 10/22/2023 text/html semen analysis NAA Mcgee [address], [place], [address], [facility] GYNECOLOG[facility], 10/22/2023 16:29:00
--- OUTSIDE RECORDS SUMMARY | 2024-10-22 08:08 | XMS_ITS | Encounter Summary ---
Author Organization [facility] Address [address] [place] [address] Care Team Providers Care Underwriting Internship Name Role Phone Unavailable Primary Care [...] release of HIV test results or diagnoses. [id number] Health Encounter Details Date Type Department Care Team (Late st Contact Info) Description 09/02/2024 Telephone [facility] Gastroenterology at [place] [facility] [address] [place] [phone] Chris Orosco MD [address] [place] [address] Social History Tobacco Use Types Packs/Day Years Used Date Smoking Tobacco: Former Cigarettes Smokeless Tobacco: Current Alcohol Use Standard Drinks/Week Comments Yes 0 (1 standard drink = 0.6 oz pure alcohol) History of alcohol abuse, reports no use in 3 week- typically endorses use as 4 glasses of wine a days Utilities Answer Date Recorded In the past 12 months has [employer], gas, oil, or water [employer] threatened to shut off services in your [...] living in a mcfp (including now)? No 08/12/2024 Yearly Questionnaire Answer [...] blood pressure medication. Instructed to arrive at [facility] at 6:30 AM with escort. Directions given, verbalized understanding. Written instructions and directions provided. documented in this encounter Plan of Treatment Upcoming Encounters Date Type Department Care Team (Late st Contact Info) Description 12/05/2024 8:01 AM EDT Hospital Encounter [facility] ENDOSCOPY [address] [place] [address] Chris Orosco MD [address] [place] [address] [phone] 12/05/2024 8:01 AM EDT - 12/05/2024 8:31 AM EDT Surgery [facility] ENDOSCOPY [address] [place] [address] Chris Orosco MD [address] [place] [phone] EGD Scheduled Procedures Name Priority Associated Diagnoses Date/Ti me EGD Cirrhosis of liver with ascites, unspecified hepatic cirrhosis type ([facility]) 12/05/2024 8:01 AM EDT documented as of this encounter Visit Diagnoses Not on filedocumented in this encounter
--- OUTSIDE RECORDS SUMMARY | 2024-10-22 08:08 | XMS_ITS | Encounter Summary ---
Author Organization [facility] Address [facility] [place] [address] Care Team Providers Care Wet Machine Operator Name Role Phone Unavailable Primary [...] release of HIV test results or diagnoses. [id number] Health Encounter Details Date Type Department Care Team (Late st Contact Info) Description 09/02/2024 Orders Only [facility] [address] [place] [phone] Noé Giordano MD [address] [place], [place] [address] Hypokalemia (Primary Dx) Social History Tobacco Use [...] Recorded In the past 12 months has [employer], gas, oil, or water [employer] threatened to shut off services in [...] living in a mcc (including now)? No 08/12/2024 Yearly Questionnaire Answer [...] Encounter [facility] ENDOSCOPY [address] [place] [address] Chris Orosco MD [address] [place] [phone] 12/05/2024 8:01 AM EDT - 12/05/2024 8:31 AM EDT Surgery [facility] ENDOSCOPY [address] [place] [address] Chris Orosco MD [address] [place] [phone] EGD Scheduled Procedures Name Priority Associated Diagnoses Date/Ti ar EGD Cirrhosis of liver with ascites, unspecified hepatic cirrhosis type (CMS-HCC) 12/05/2024 8:01 AM EDT documented as of this encounter Visit Diagnoses Diagnosis Hypokalemia- Primary Hypopotassemia Cirrhosis of liver with ascites, unspecified hepatic cirrhosis type (CMS-HCC) documented in this encounter
--- OUTSIDE RECORDS SUMMARY | 2024-10-22 08:08 | XMS_ITS | Encounter Summary ---
Author Organization [facility] Address [facility] [place] [address] Care Team Providers Care Machine Builder Name Role Phone Unavailable Primary Care Provider [...] release of HIV test results or diagnoses. [id number] Reason for Visit * Reason Comments After Hours Call Encounter Details Date Type Department Care Team (Late st Contact Info) Description 09/02/2024 Telephone [facility] PATIENT SERVICES [address] [place] [address] Unknown, Attending Provider After Hours [...] Recorded In the past 12 months has [employer], gas, oil, or water [employer] threatened to shut off services in your [...] - 09/02/2024 8:50 PM EDT Specialty: [facility] Patient Name: Julien Anderson Patient Date of : 1985 Relationship of Caller to Patient and Callback: ALICIA ([facility]) [phone] Patient of: DR. LINARES Nature of Call: CRITICAL LAB RESULT Personal Financial Advisor Provider Contacted: DR. VINES Time and Method [...] EDT Hospital Encounter [facility] ENDOSCOPY [address] [place] [address] Chris Orosco MD [address] [place] [phone] 12/05/2024 8:01 AM EDT - 12/05/2024 8:31 AM EDT Surgery [facility] ENDOSCOPY [address] [place] [address] Chris Orosco MD [address] [place] [address] [phone] EGD Scheduled Procedures Name Priority Associated Diagnoses [...]
--- OUTSIDE RECORDS SUMMARY | 2024-10-22 08:08 | XMS_ITS | Encounter Summary ---
Author Organization [facility] Address [address] [place] [address] Care Team Providers Care Ribbon Sweatband Operator Name Role Phone Unavailable Primary Care [...] release of HIV test results or diagnoses. [id number] Health Encounter Details Date Type Department Care [...] Recorded In the past 12 months has [employer], [employer] or water [employer] threatened to shut off services in your [...] Description 12/05/2024 8:01 AM EDT Hospital Encounter [facility] ENDOSCOPY [address] [place] [address] Chris Orosco MD [address] [place] [phone] 12/05/2024 8:01 AM EDT - 12/05/2024 8:31 AM EDT Surgery [facility] ENDOSCOPY [address] [place] [address] Crhis Orosco MD [address] [place] [phone] EGD Scheduled Procedures Name Priority Associated Diagnoses Date/Ti me EGD Cirrhosis of liver with ascites, unspecified hepatic cirrhosis type ([facility]) 12/05/2024 8:01 AM EDT documented as of this encounter Visit Diagnoses Not on filedocumented in this encounter
--- OUTSIDE RECORDS SUMMARY | 2024-10-22 08:08 | XMS_ITS | Encounter Summary ---
Author Organization [facility] Address [address] [place] [address] Care Team Providers Care Motion Picture Set Up Worker Name Role Phone Unavailable Primary Care [...] release of HIV test results or diagnoses. [id number] Health Encounter Details Date Type Department Care Team (Late st Contact Info) Description 09/02/[address] [facility] Liver Transplant at [address] [address] Mary Butler, RN Pre-transplant evaluation for chronic [...] Recorded In the past 12 months has [employer], gas, oil, or water [employer] threatened to shut off services in your [...] in a care home (including now)? No 08/12/2024 Yearly Questionnaire [...] Description 12/05/2024 8:01 AM EDT Hospital Encounter [facility] ENDOSCOPY [address] [place] [address] Chris Orosco MD [address] [place] [phone] 12/05/2024 8:01 AM EDT - 12/05/2024 8:31 AM EDT Surgery [facility] ENDOSCOPY [address] [place] [address] Chris Orosco MD [address] [place] [phone] EGD Scheduled Procedures Name Priority Associated Diagnoses [...]
--- OUTSIDE RECORDS SUMMARY | 2024-10-22 08:08 | XMS_ITS | Encounter Summary ---
Author Organization [facility] Address [address] [place] [address] Care Team Providers Care Software Build Engineer Name Role Phone Unavailable Primary Care [...] release of HIV test results or diagnoses. [id number] Reason for Referral * Surgical (Routine) - New Request Specialty Diagnoses / Procedures Referred By Contac t Referred To Contact Gastroenterology Diagnoses Cirrhosis of liver with ascites, unspecified hepatic cirrhosis type ([facility]-H[facility]) Procedures Case request GI: EGD Chris Orosco MD [address] [place] [address] Phone: tel: fax: Referral ID Status Reason Start Date Expiration Date V isits Requested Visits Authorized [id number] New Request 09/05/2024 03/04/2025 1 1 Encounter Details Date Type Department Care Team (Late st Contact Info) Description 09/05/2024 Orders Only [facility] Gastroenterology at [facility] Office [address] [place] [address] [place] [address] Chris Orosco MD [address] [place] [phone] Cirrhosis of liver with ascites, unspecified hepatic [...] the past 12 months has th e [employer], gas, oil, or water [employer] threatened to shut off services in [...] in the past 12 m the [facility], were you homeless or living in [...] one occasion? Never 09/05/2024 12:47 AM Minh Dioxn R N documented as of this encounter Plan of Treatment Upcoming Encounters Date Type Department Care Team (Late st Contact Info) Description 12/05/2024 8:01 AM EDT Hospital Encounter [facility] ENDOSCOPY [address] [place] [phone] Chris Orosco MD [address] [place] [address] [phone] 12/05/2024 8:01 AM EDT - 12/05/2024 8:31 AM EDT Surgery [facility] ENDOSCOPY [address] [place] [phone] Chris Orosco MD [address] [place] [phone] EGD Scheduled Procedures Name Priority Associated [...]
--- OUTSIDE RECORDS SUMMARY | 2024-10-22 08:09 | XMS_ITS ---
Author Organization [facility] Address [facility] [place] [address] Care Team Providers Care Aerial Photographer Name Role Phone Enedina Mcguire NP Primary Care Provider [phone] Transplant Episode Kidney Candidate [facility] ([place], [place]) - [facility] Evaluation began on 10/08/2024 Marked as Active on 10/08/2024 Kidney CoordinatorAnny Cote RN Phone: N/A Fax: N/A Email: N/A Scores Score Value Updated Exceptions/Reas ons CPRA Not available EPTS (Calc) 8 10/22/2024 Care Team Name Role Phone Fax Email Anny Cote RN Kidney Coordinator N/A N/A N/A Yovanny Curran MD Referring Physician [phone] N/A Events Pre-Transplant Referred: 10/07/2024 Evaluation began: 10/08/2024 Committee: 10/20/2024
--- OUTSIDE RECORDS SUMMARY | 2024-10-22 08:09 | XMS_ITS | Encounter Summary ---
Author Organization [facility] Address [facility] [place] [address] Care Team Providers Care Tooling Specialist Name Role Phone Unavailable Primary Care [...] release of HIV test results or diagnoses. [id number] Reason for Visit * Reason Comments Medical Management Plan of Care Inquiry /Question Encounter Details Date Type Department Care Team (Late st Contact Info) Description 09/16/2024 Telephone [facility] Gastroenterology at [facility] [facility] [address] [place] [phone] Gerri Peterson MD [address] [place] [address] Medical Management (Plan of Care Inquiry/Question [...] Recorded In the past 12 months has [employer], gas, oil, or water company threatened to [...] Result : Platelets Ordering Physician: Drawn per [facility] Comment: This was drawn @ 10:40 [...] review a critical lab. Please call - [phone] * Telephone Encounter - Ingrid Galvez RN - 09/16/2024 11:48 AM EDT RN was not able to reach per secure chat, [employer], paging so RN called on cell. RN spoke to Dr Peterson on phone and to give Albumin 25% 8G/L for greater than 5 L removed. Not to remove more than 10 L. (Max 100g Grams albumin in 24 hours). Verbal order given to Yvonne as was approved per Dr Peterson * Telephone Encounter - Tamar Blackwood - 09/16/2024 9:58 AM EDT Yvonne from [facility] asked if advised to do Albumin replacement after paracentesis? Julien in route to appointment Yvonne can be reached at [phone] documented in this encounter Plan of Treatment Upcoming Encounters Date Type Department Care Team (Late st Contact Info) Description 12/05/2024 8:01 AM EDT Hospital Encounter [facility] ENDOSCOPY [address] [place] [address] Chris Orosco MD [address] [place] [phone] 12/05/2024 8:01 AM EDT - 12/05/2024 8:31 AM EDT Surgery [facility] ENDOSCOPY [address] [place] [address] Chris Orosco MD [address] [place] [phone] EGD Scheduled Procedures Name Priority Associated Diagnoses [...]
--- OUTSIDE RECORDS SUMMARY | 2024-10-22 08:09 | XMS_ITS | Encounter Summary ---
Author Organization [facility] Address [address] [place] [address] Care Team Providers Care Portable Power Tool Repairer Name Role Phone Unavailable Primary Care Provider [...] release of HIV test results or diagnoses. [id number] Health Encounter Details Date Type Department Care Team (Late st Contact Info) Description 09/24/[address] [facility] G[facility]enterology at [place] [facility] [address] [place] [phone] Gerri Peterson MD [address] [place] [address] Cirrhosis of liver with ascites, [...] Recorded In the past 12 months has [employer], gas, oil, or water company threatened [...] 12/05/2024 8:01 AM EDT Hospital Encounter [facility] ENDOSCOPY [address] [place] [address] Chrsi Orosco MD [address] [place] [phone] 12/05/2024 8:01 AM EDT - 12/05/2024 8:31 AM EDT Surgery [facility] ENDOSCOPY [address] [place] [address] Chris Orosco MD [address] [place] [phone] EGD Scheduled Orders Name Type Priority Associated [...] Gram Stain Result Cytospin Results: [facility] Gram Stain Result Polymorphonuclear Leukocytes Seen; [facility] Gram Stain Result No Organisms Seen; [facility] Culture Result No Growth After 5 Days [facility] Fluid ABDOMEN / Unknown 10/10/2024 1:51 PM EDT 10/10/2024 3:56 PM EDT Result [facility] Gerri Peterson MD MICROBIOLOGY - GENERAL ORDERABL ES Final Result Performing Organization Address [facility] Co de Phone Number [facility] [address] [facility]. [address] * (ABNORMAL) Body fluid cell count (10/10/2024 1:51 PM EDT) Color, Fluid Yellow(A) Colorless, Pale Yellow 10/10/2024 5:29 PM EDT [facility] Clarity, Fluid Clear 10/10/2024 5:29 PM EDT [facility] Neutrophil %, Fluid 9 % 10/10/2024 5:29 PM EDT [facility] Lymphocytes %, Fluid 13 % 10/10/2024 5:29 PM EDT [facility] Mesothelial %, Fluid 6 % 10/10/2024 5:29 PM EDT [facility] Macrophage %, Fluid 72 % 10/10/2024 5:29 PM EDT [facility] RBC, Fluid 2,662 /uL 10/10/2024 4:41 PM EDT [facility] Total Nucleated Cells, Fluid 89 /uL 10/10/2024 4:41 PM EDT [facility] Comment:Total Nucleated Cell s represent WBCs and other nucleated cells in the fluid such as lining cells. Ascitic Fluid ABDOMEN / Unknown 1:51 PM EDT 10/10/2024 3:56 PM EDT Result [facility] Gerri Peterson MD BODY FLUIDS AND STOOLS ORDERABL ES Final Result Performing Organization Address [facility]/ZIP Co de Phone Number [facility] [address] documented in this encounter Visit Diagnoses Diagnosis Cirrhosis of liver with ascites, unspecified hepatic cirrhosis type (CMS-HCC)- Primary Cirrhosis of liver with ascites, unspecified hepatic cirrhosis type (CMS-HCC) documented in this encounter Additional Health Concerns Infection Onset Date Last Indicated Resolved Time C. difficile 09/09/2024 09/09/2024 documented as of this encounter
--- OUTSIDE RECORDS SUMMARY | 2024-10-22 08:09 | XMS_ITS | Encounter Summary ---
Author Organization [facility] Address [facility] [place] [address] Care Team Providers Care Concrete Pile Driver Operator Name Role Phone Unavailable Primary Care [...] release of HIV test results or diagnoses. [id number] Reason for Visit * Reason Comments Orders Order Clarification Request Encounter Details Date Type Department Care Team (Late st Contact Info) Description 09/23/2024 Telephone [facility] Gastroenterology at [place] [facility] [address] [place] [phone] Gerri Peterson MD [address] [place] [address] Orders (Order Clarification Request/) Social [...] Recorded In the past 12 months has [employer], gas, oil, or water company threatened to [...] time in the past 12 m [facility], were you homeless or living in [...] being requested. I was transferred tolab staff manager cafe. No answer. Message left to please indicate the lab orders that they are in need of and we will fax the orders. RN provided direct nurse line as well as main number for call back with this information. * Telephone Encounter - Carina Quezada - 09/24/2024 9:48 AM EDT Madina with [facility] called to follow-up on faxed received. Madina needing clarification on fax cover sheet note she received regarding clarifying lab protocol. Madina requesting osiel back to clarify at [phone] (ask for Madina) * Telephone Encounter - Alondra Reese MA - 09/23/2024 1:36 PM EDT Requesting bloodwork orders be placed and done biweekly. documented in this encounter Plan of Treatment Upcoming Encounters Date Type Department Care Team (Late st Contact Info) Description 12/05/2024 8:01 AM EDT Hospital Encounter [facility] ENDOSCOPY [address] [place] [phone] Chris Orosco MD [address] [place] [phone] 12/05/2024 8:01 AM EDT - 12/05/2024 8:31 AM EDT Surgery [facility] ENDOSCOPY [address] [place] [phone] Chris Orosco MD [address] [place] [phone] EGD Scheduled Procedures Name Priority Associated [...]
--- OUTSIDE RECORDS SUMMARY | 2024-10-22 08:09 | XMS_ITS | Encounter Summary ---
Author Organization [facility] Address [address] [place] [address] Care Team Providers Care Director Of Search Engine Optimization Name Role Phone Unavailable Primary Care Provider [...] release of HIV test results or diagnoses. [id number] Reason for Referral * (Routine) - New Request Specialty Diagnoses / Procedures Referred By Contac t Referred To Contact Radiology Diagnoses Cirrhosis of liver with ascites, unspecified hepatic cirrhosis type (CMS-HCC) Procedures AMB Referral to Interventional Radiology (BODY IR) Gerri Peterson MD [address] [place] [address] Phone: tel: fax: Referral ID Status Reason Start Date Expiration Date V isits Requested Visits Authorized [id number] New Request 09/23/2024 03/22/2025 10 10 Reason for Visit * Reason Comments Orders Order Clarification Request Encounter Details Date Type Department Care Team (Late st Contact Info) Description 09/22/2024 Telephone [facility] Gastroenterology at [address] [phone] Gerri Peterson MD [address] [place] [address] Orders (Order Clarification Request ) Social History [...] the past 12 months has th e [employer], [employer], oil, or water [email or web address] threatened to shut off services in your [...] 5:26 PM EDT RN faxed order to [phone] * Telephone Encounter - Alondra Reese MA - 09/23/2024 1:35 PM EDT Pt requesting a Standing order for parenthesis to have done 2x a week. * Telephone Encounter - Tamar Blackwood - 09/22/2024 11:22 AM EDT Madina from [facility] asked to clarify paracentesis frequency. Julien had 9 liters removed last week, 7.5 today and asked to get scheduled this Sunday. Madina can be reached at [phone] documented in this encounter Plan of Treatment Upcoming Encounters Date Type Department Care Team (Late st Contact Info) Description 12/05/2024 8:01 AM EDT Hospital Encounter [facility] ENDOSCOPY [address] [place] [address] Chris Orosco MD [address] [place] [phone] 12/05/2024 8:01 AM EDT - 12/05/2024 8:31 AM EDT Surgery [facility] ENDOSCOPY [address] [place] [address] Chris Orosco MD [address] [place] [address] EGD Scheduled Orders Name Type Priority Associated [...]
--- OUTSIDE RECORDS SUMMARY | 2024-10-22 08:09 | XMS_ITS ---
Author Organization [facility] Address [facility] [place] [address] Care Team Providers Care Boat Captain Name Role Phone Enedina Mcguire NP Primary Care Provider [phone] Transplant Episode Liver Candidate [facility] ([place], [place]) - [facility] Evaluation began on 10/07/2024 Marked as Active on 10/07/2024 Liver CoordinatorMary Butler RN Phone: N/A Fax: N/A Email: N/A Scores Score Value Updated Expires Exceptions/Reba sons CPRA Not available UNOS MELD Not available MELD (Calc) 34 10/17/2024 [place] Organ Diagnosis Organ Primary Contributory Liver Alcohol-Associated C irrhosis Without Acute Alcohol-Associated Hepatitis Infection History Noted Survival Infection Treatment Organism Resolved 09/09/2024 C. difficile diarrhea Care Team Name Role Phone Fax Email Mary Butler RN Liver Coordinator N/A N/A N/A Chris Orosco MD Referring Physician [phone] N/A NUBIA Barros Txp Interactive Digital Media Specialist N/A N/A N/A Mary Butler RN Txp Pre Coordinator N/A N/A N/A Events Pre-Transplant Referred: 08/13/2024 Evaluation began: 10/07/2024 Committee: 10/14/2024
--- OUTSIDE RECORDS SUMMARY | 2024-10-22 08:09 | XMS_ITS | Encounter Summary ---
Author Organization [facility] Address [address] [place] [address] Care Team Providers Care Camera Mechanic Name Role Phone Unavailable Primary Care [...] release of HIV test results or diagnoses. [id number] Health Encounter Details Date Type Department Care Team (Late st Contact Info) Description 09/17/2024 Telephone [facility] Liver Transplant at [address] [phone] Kaylin Willard MSW Social History Tobacco Use [...] Recorded In the past 12 months has [employer], gas, oil, or water company threatened to [...] Encounter [facility] ENDOSCOPY [address] [place] [address] Chris Orosco MD [address] [place] [phone] 12/05/2024 8:01 AM EDT - 12/05/2024 8:31 AM EDT Surgery [facility] ENDOSCOPY [address] [place] [address] Chris Orosco MD [address] [place] [phone] EGD Scheduled Procedures Name Priority Associated Diagnoses [...]
--- OUTSIDE RECORDS SUMMARY | 2024-10-22 08:09 | XMS_ITS | Encounter Summary ---
Author Organization [facility] Address [address] [place] [address] Care Team Providers Care Fire Patroller Name Role Phone Unavailable Primary Care Provider [...] release of HIV test results or diagnoses. [id number] Health Encounter Details Date Type Department Care Team (Late st Contact Info) Description 09/17/2024 Abstract [facility] Gastroenterology at [place] [facility] [address] [place] [phone] Gerri Peterson MD [address] [place] [address] Social History Tobacco Use Types [...] In the past [address] [facility] [employer], gas, oil, or water [employer] threatened to shut off services in your [...] any time in the past 12 m [facility], were you homeless or living in [...] AM EDT Hospital Encounter [facility] ENDOSCOPY [address] [place] [address] Chris Orosco MD [address] [place] [phone] 12/05/2024 8:01 AM EDT - 12/05/2024 8:31 AM EDT Surgery [facility] ENDOSCOPY [address] [place] [address] Chris Orosco MD [address] [place] [phone] EGD Scheduled Procedures Name Priority Associated Diagnoses Date/Ti me EGD Cirrhosis of liver with ascites, unspecified hepatic cirrhosis type ([facility]-HCC) 12/05/2024 8:01 AM EDT documented as [...] 7.5 - 11.5 fL Whole Blood Result [facility] Gerri Peterson MD LAB BLOOD ORDERABLES Final Resu lt * Glucose, random (09/16/2024 12:20 PM EDT) Glucose 97 60 - 200 mg/dL Plasma Result [facility] Gerri Peterson MD LAB BLOOD ORDERABLES Final Resu lt * (ABNORMAL) Hepatic function panel (09/16/2024 12:20 PM EDT) Alkaline Phosphatase 144 U/L ALT 40 U/L AST 76 U/L Total Bilirubin 19.8(A) 0.1 - 1.4 mg/dL Protein, Total 6.3 Albumin 3.4(A) 3.5 - 5.0 g/dL Blood Result [facility] Gerri Peterson MD LAB BLOOD ORDERABLES Final Resu lt * (ABNORMAL) Renal Function Panel w/o EGFR (09/16/2024 12:20 PM EDT) Creatinine 2.30 BUN 31(A) 4 - 21 mg/dL Potassium 3.3(A) 3.4 - 5.3 mmol/L Sodium 136(A) 137 - 147 mmol/L Chloride 110(A) 99 - 108 mmol/L Calcium 9.3 8.7 - 10.7 mg/dL Blood Result [facility] Gerri Peterson MD LAB BLOOD ORDERABLES Final Resu lt * Comprehensive metabolic panel (09/16/2024 12:20 PM EDT) CO2 15 13 - 22 mmol/L Plasma Result [facility] Gerri Peterson MD LAB BLOOD ORDERABLES Final Resu lt * (ABNORMAL) Protime-INR (09/16/2024 12:20 PM EDT) INR 1.89(A) 0.9 - 1.1 Protime 19.9(A) 10.0 - 13.8 seconds Plasma Result [facility] Gerri Peterson MD LAB BLOOD ORDERABLES Final Resu lt * (ABNORMAL) CBC (09/16/2024 12:20 PM EDT) Red Blood Cells: 2.52 Hemoglobin 9.1(A) 13.5 - 17.5 g/dL Hematocrit 25.8(A) 41 - 53 % MCV 102.4 82.0 - 108.0 fL WBC 9.9 10^3/mL Whole Blood Result [facility] Gerri Peterson MD LAB BLOOD ORDERABLES Final Resu lt * CBC and differential (09/16/2024 12:20 PM EDT) Neutrophils Absolute 8.4 / L Blood Result [facility] Gerri Peterson MD LAB BLOOD [...]
--- OUTSIDE RECORDS SUMMARY | 2024-10-22 08:09 | XMS_ITS | Encounter Summary ---
Author Organization [facility] Address [address] [place] [address] Care Team Providers Care Bend Up Name Role Phone Unavailable Primary Care Provider [...] release of HIV test results or diagnoses. [id number] Health Encounter Details Date Type Department Care Team (Late st Contact Info) Description 09/17/2024 Telephone [facility] Liver Transplant at [address] [phone] Kaylin Willard MSW Social History Tobacco Use [...] Recorded In the past 12 months has [employer], gas, oil, or water company threatened to [...] living in a penitentiary (including now)? No 09/05/2024 Yearly Questionnaire Answer [...] Encounter [facility] ENDOSCOPY [address] [place] [address] Chris Orosco MD [address] [place] [phone] 12/05/2024 8:01 AM EDT - 12/05/2024 8:31 AM EDT Surgery [facility] ENDOSCOPY [address] [place] [address] Chris Orosco MD [address] [place] [phone] EGD Scheduled Procedures Name Priority Associated Diagnoses Date/Ti me EGD Cirrhosis of liver with ascites, unspecified hepatic cirrhosis type ([facility]-HCC) 12/05/2024 8:01 AM EDT documented as of this encounter Visit Diagnoses Not on filedocumented in this encounter Additional Health Concerns Infection Onset Date Last Indicated Resolved Time C. difficile 09/09/2024 09/09/2024 documented as of this encounter
--- OUTSIDE RECORDS SUMMARY | 2024-10-22 08:09 | XMS_ITS | Encounter Summary ---
Author Organization [facility] Address [address] [place] [address] Care Team Providers Care Squaring Machine Operator Name Role Phone Unavailable Primary [...] release of HIV test results or diagnoses. [id number] Health Encounter Details Date Type Department Care Team (Late st Contact Info) Description 09/10/2024 Telephone [facility] Liver Transplant at [address] [address] Kaylin Willard MSW Social History Tobacco Use [...] Recorded In the past 12 months has [employer], gas, oil, or water company threatened to [...] 12/05/2024 8:01 AM EDT Hospital Encounter [facility] ENDOSCOPY [address] [place] [address] Chris Orosco MD [address] [place] [phone] 12/05/2024 8:01 AM EDT - 12/05/2024 8:31 AM EDT Surgery [facility] ENDOSCOPY [address] [place] [address] Chris Orosco MD [address] [place] [phone] EGD Scheduled Procedures Name Priority Associated Diagnoses Date/Ti me EGD Cirrhosis of liver with ascites, unspecified hepatic cirrhosis type ([facility]-HCC) 12/05/2024 8:01 AM EDT documented as of this encounter Visit Diagnoses Not on filedocumented in this encounter Additional Health Concerns Infection Onset Date Last Indicated Resolved Time C. difficile 09/09/2024 09/09/2024 documented as of this encounter
[2024-10-22 10:04] LABS: Albumin Level 3.2 g/dl (3.5-5.0); Chloride 106 mmol/L (98-107); Potassium 3.7 mmoL/L (3.5-5.1); Sodium 133 mmol/L (136-145)
[2024-10-22 10:07] LABS: Anion Gap 12.7 mEq/L (5-15); Blood Urea Nitrogen 62 mg/dl (9-20); Carbon Dioxide 18 mmol/L (22.0-30.0); Estimated Glomerular Filt Rate 21 ml/min (>60); GFR (African American) 25 ML/MIN (>60); Glucose 107 mg/dl (74-100); Phosphorous 5.8 mg/dl (2.5-4.5)
[2024-10-22 10:20] LABS: Appearance,Body Fld. Hazy; Source, Body Fld. Paracentesis Fluid; Volume,Body Fld. 3100 mL
[2024-10-22 10:21] LABS: RBC,Body Fluid 5000 cells/uL (< 10 X 10^3); TNC,Body Fluid 80 cells/uL (< 1000)
[2024-10-22 11:14] LABS: Mononuclear WBCs,Body Fluid 9 %; Polynuclear WBC,Body Fluid 91 %
== END 2024-10-22 23:59 | disposition home or self-care (01) ==
PROVIDERS: PCP Nurse Practitioner Family; Visit Provider Student in an Organized Health Care Education/Training Program
DX: K74.60 Unspecified cirrhosis of liver (principal); R18.8 Other ascites
CPT/HCPCS: 36415; 49083; 80069; 89051

== ENCOUNTER 2024-11-06 08:25 | Outpatient (CLI) | payer OTHER, SELFPAY ==
--- OUTSIDE RECORDS SUMMARY | 2024-09-03 04:56 | XMS_ITS | Encounter Summary ---
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 [id number] Reason for Visit * Reason Comments Abdominal Pain * Auth/Cert (Routine) Specialty Diagnoses / Procedures Referred By Shane hernadez Referred To Contact Emergency Medicine [facility] Emergency Department [address] [place] [phone] Phone: tel: fax: Referral ID Status Reason Start Date Expiration Date Visits Re quested Visits Authorized [id number] 1 1 Encounter Details Date Type Department Care Team (Latest Contact Info) Description 09/03/2024 4:56 AM EDT - 09/09/2024 6:25 PM EDT Hospital Encounter [facility] [address] [place] [address] Ana Maria Ramey MD [address] [place] [id number] Jarrod Alas MD [address] [place] [address] Kiet Ramirez MD [address] [place] [address] Kathie Sanchez MD [address] [place] [address] Flaquita Mendez MD [address] [place] [address] Alcoholic cirrhosis of liver with ascites (CMS-HCC) (Primary Dx); Abdominal pain, unspecified abdominal location; NADIYA (acute kidney injury) ([facility]) [N17.9] Discharge Disposition: Home or Self Care [...] Recorded In the past 12 months has [employer], gas, oil, or water [employer] threatened to shut off services in your [...] living in a snf (including now)? No 09/05/2024 Yearly Questionnaire Answer [...] Mendez MD - 09/09/2024 2:27 PM EDT [facility] Department of Internal Medicine Inpatient Discharge Summary Patient: Julien Anderson [facility]: [id number] Date of Admission: 09/03/2024 Date of Discharge: 09/09/2024 Attending Physician: Flaquita Mendez* Past Medical History Past Medical History: Diagnosis Date Alcoholic cirrhosis of liver (CMS-HCC) Alcoholic hepatitis Esophageal varices (CMS-HCC) Hepatorenal syndrome ([facility]) Hypertension Other hyperlipidemia 07/26/2024 Renal cell carcinoma (CMS-HCC) Thrombocytopenia ([facility]) Thyroid disease Discharge Diagnoses Active Hospital Problems Diagnosis Date Noted Alcoholic cirrhosis of liver without ascites (CMS-HCC) [K70.30] 07/25/2024 C. difficile diarrhea [A04.72] 09/09/2024 C Diff Diarrhea [R19.7] 09/08/2024 BRBPR (bright red blood per rectum) [K62.5] 09/07/2024 Anemia [D64.9] 09/05/2024 Abdominal pain [R10.9] 09/03/2024 Hypokalemia [E87.6] 09/03/2024 CKD (chronic kidney disease) stage 4, GFR 15-29 ml/min ([facility]) [N18.4] 09/03/2024 Metabolic acidosis with normal anion gap and bicarbonate losses [E87.20] 09/03/2024 GERD (gastroesophageal reflux disease) [K21.9] 09/03/2024 Hypothyroidism [E03.9] 09/03/2024 Itching [L29.9] 09/03/2024 Renal mass, left [N28.89] 08/18/2024 Alcohol use disorder [F10.90] 07/26/2024 Other hyperlipidemia [E78.49] 07/26/2024 Hypertension [I10] Thrombocytopenia ([facility]) [D69.6] Resolved Hospital Problems Diagnosis Date Noted Date Resolved SBP (spontaneous bacterial peritonitis) ([facility]) [K65.2] 09/08/2024 09/08/2024 Metabolic encephalopathy [G93.41] 07/26/2024 09/08/2024 NADIYA (acute kidney injury) ([facility]) [N17.9] 07/25/2024 09/08/2024 Operations/Procedures Performed (include dates) Surgeries: None Lines/Drains/Airways: Patient Lines/Drains/Airways Status Active Line / PIV Line None Notable Imaging Studies: X-ray Portable Chest Final Result IMPRESSION: No significant interval change. Report Verified by: Essence Lopez MD at 09/03/2024 2:13 PM EDT US Duplex Jrg-Vkm-Gpslmvy Comp Final Result IMPRESSION: ABDOMEN Cirrhosis and [...] Your Medications These medications were sent to [facility] [address] [place] [address] [facility] [id number] Hours: Sunday - Sunday: 8:00AM - 6:00PM [...] MAB 12/05/2024 8:00 AM Chris Orosco MD [facility] >30 minutes spent on discharge Signed: Flaquita [...] MAB 12/05/2024 8:00 AM Chris Orosco MD [facility] Recent Lab Values for you and your [...] total) by mouth every morning before breakfast. vancomycin (VANCOCIN) 125 MG capsule Take 1 [...] tablet 09/09/2024 3:56 PM EDT 09/10/2024 5 folic acid (FOLVITE) 1 MG tablet Take 1 tablet (1 mg total) by mouth daily. 5 lactulose (CHRONULAC) 10 gram/15 mL solution Take 30 mLs (20 g total) by mouth 3 times a day as needed (goal 2-3 bowel movements a day). 2838 mL 08/19/2024 1:23 PM EDT 08/19/2024 5 pantoprazole (PROTONIX) 40 MG tablet Take 1 tablet (40 mg total) by mouth every morning before breakfast. 5 potassium chloride (KLOR-CON M20) 20 MEQ tabletIndications :Hypokalemia Take 2 tablets (40 mEq total) by mouth daily. 60 tablet 2 09/02/2024 5 rifAXIMin (XIFAXAN) 550 mg Tab tablet Take 1 tablet (550 mg total) by mouth 2 times a day. 60 tablet 08/19/2024 1:23 PM EDT 08/19/2024 5 sodium bicarbonate 650 MG tablet Take 2 tablets (1,300 mg total) by mouth 3 times a day. 90 tablet 08/19/2024 1:23 PM EDT 08/19/2024 5 thiamine HCl (VITAMIN B-1) 100 MG tablet Take 1 tablet (100 mg total) by mouth daily. 30 tablet 09/09/2024 5 traMADoL (ULTRAM) 50 mg tablet Take 1 tablet (50 mg total) by mouth every 12 hours as needed for Pain (Pain). 5 ursodioL (ACTIGALL) 300 mg capsule Take 1 capsule (300 mg total) by mouth 2 times a day. 60 capsule 09/09/2024 3:56 PM EDT 09/09/2024 5 zinc sulfate (ZINCATE) 50 mg zinc (220 mg) capsule Take 1 capsule (220 mg total) by mouth daily. 60 capsule 08/19/2024 1:23 PM EDT 08/20/2024 5 documented as of this encounter Progress [...] this time. Thank you, Chelsy Piper PharmD, [facility] Clinical Director Immunology - Internal Medicine Preferred Contact: [employer] Secured Chat 09/09/2024 3:37 PM * Azalea Hughes DO - 09/09/2024 8:26 AM EDT [facility] Internal Medicine - Progress Note [...] with SBP, s/p CTX x5d; 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 500mg daily - HE: [...] kidney disease) stage 4, GFR 15-29 ml/min ([facility]) As above for NADIYA Alcohol use disorder [...] Sanchez MD - 09/08/2024 9:31 AM EDT [facility] Internal Medicine - Progress Note [...] kidney disease) stage 4, GFR 15-29 ml/min ([facility]) As above for NADIYA Alcohol use disorder [...] Cont home cholestyramine - Cont ursodiol Thrombocytopenia ([facility]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 Hypertension No meds. Other [...] No pain reported SBP (spontaneous bacterial peritonitis) ([facility]) (Resolved: 09/08/2024) Para with fluid studies on [...] another specialty or practice, other licensed professional (PT/OT/BEAM WORKER/RT), or a non-medical community professional: Hepatology Labs [...] ineligible d/t alcohol use. Then re-admitted to [facility] 07/25-07/29 after worsening outpatient labs (NADIYA). also noted ongoing/worsening jaundice. Repeat US without ascites. His last drink was prior to admission at . During prior admission, renal function improved with volume expansion, held octreotide and midodrine. [facility] Admission -08/19/24 with generalized weakness, worsening [...] assessment and plan. 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 Will switch to bed bug exterminator prophylaxis with Cipro 500 mg daily. Supportive [...] Saxena MD - 09/07/2024 6:17 PM EDT [facility] Medicine Cross Cover Note Follow up task / Call regarding: Julien Anderson Issue: Bmp follow up potassium 3.4. bicarb improving. Action: reordered potassium RICCI SAXENA MD Division of Hospital Medicine Department of Internal Medicine 6:16 PM, 09/07/2024 * Azalea Hughes DO - 09/07/2024 6:45 AM EDT [facility] Medicine Progress Note [facility] // [facility] Chief Concern / Reason for Follow-Up [...] appropriate affect, pleasant, cooperative Laboratory Data Lab 09/07/2434109/06/24163609/06/2442909/05/24 0724 WBC 4.0 5.1 4.3 4.6 HEMOGLOBIN 7.4* 8.3* 8.4* 7.6* HEMATOCRIT 20.7* 23.3* 22.8* 21.1* MEAN CORPUSCULAR VOLUME 100.2* 100.4* 99.9 99.7 PLATELETS 40* 45* 41* 37* Lab 09/07/2434109/06/24 16309/06/24 0430 09/05/24 0724 SODIUM 137 137 137 134 POTASSIUM 3.2* 3.2* 3.1* 3.6 CHLORIDE 111* 109 109 107 CO2 15* 17* 17* 19* BUN 36* 37* 40* 42* CREATININE 2.60* 2.66* 2.70* 2.92* GLUCOSE 150* 108* 122* 108* Lab 09/07/2434109/06/24 16309/06/24 0430 09/05/24 0724 09/04/24 1621 CALCIUM 8.3* 8.7 8.6 8.6 9.1 MAGNESIUM 1.7 -- 1.8 2.0 2.4 PHOSPHORUS 1.9* 2.2 2.0* 2.1 -- Lab 09/07/24 0342 09/06/24 0430 09/05/24 0724 09/04/24 0522 INR 2.3* [...] Recheck pm RFP NADIYA (acute kidney injury) ([facility]) Admit Cr 3.01 (from 2.91 on 09/02, [...] kidney disease) stage 4, GFR 15-29 ml/min ([facility]) As above for NADIYA Metabolic encephalopathy Likely [...] Cont home cholestyramine - Cont ursodiol Thrombocytopenia ([facility]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 Hypertension No meds. Other [...] another specialty or practice, other licensed professional (PT/OT/BEAM WORKER/RT), or a non-medical community professional: hepatology Labs reviewed (1 pt each): BMP x2, LFT, CBC, INR Review of notes from a different specialty or different practice: hepatology Kathie Sanchez MD Hospital Medicine 09/07/2024 10:22 AM * Jean Maher [...] acute / urgent / emergent indication for GEOPHYSICAL COMPUTER at this time. Nephrology signing off. Please [...] 0659 09/07/24 0700 - 09/08/24 0659 Shift 0768-7222 1358-1470 5747-3751 24 Hour Total 7924-5440 6484-2710 9283-3313 24 Hour Total INTAKE P.O. 240 340 [...] and Imaging Recent Labs 09/06/24 0430 09/06/24 16309/07/24 034 WBC 4.3 5.1 4.0 HGB 8.4* 8.3* 7.4* HCT 22.8* 23.3* 20.7* MCV 99.9 100.4* 100.2* PLT 41* 45* 40* Recent Labs 09/05/24 0724 09/05/24 0724 09/06/24 04309/06/24 16309/07/24 034 NA 134 -- 137 137 137 K [...] this interval not displayed. Recent Labs 09/06/24 04309/06/24163609/07/24341 CALCIUM 8.6 8.7 8.3* PHOS 2.0* 2.2 1.9* No results found for: IRON , TIBC , FERRITIN No results found for: [id number] , FOLATE Lab Results Component Value Date [...] CRUR No results found for: MICROALBUR , [id number] In addition to the above an extensive [...] goals of ~70-75. - no indication for GEOPHYSICAL COMPUTER at this time - still have 8 [...] 7:36 AM EDT Hospital Medicine Progress Note [facility] // [facility] Chief Concern / Reason for Follow-Up [...] Recheck pm RFP NADIYA (acute kidney injury) ([facility]) Admit Cr 3.01 (from 2.91 on 09/02, recent BL 2.7-3.0), peak Cr 3.52, now improving. UA appears concentrated, no c/f obstruction on CT A/P. Treated as HRS initially given severity of CKD and cirrhosis,de-escalating tx as above. Renal consulted. - Cont home sodium bicarb 1300mg TID - Albumin challenge and octreotide/midodrine as above CKD (chronic kidney disease) stage 4, GFR 15-29 ml/min ([facility]) As above for NADIYA Metabolic encephalopathy Likely [...] Cont home cholestyramine - Cont ursodiol Thrombocytopenia ([facility]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 Hypertension No meds. Other [...] Internal Medicine 11:03 AM, 09/06/2024 Cosigned by Katihe Sanchez MD at 09/06/2024 1:06 PM EDT [...] another specialty or practice, other licensed professional (PT/OT/BEAM WORKER/RT), or a non-medical community professional: hepatology Labs reviewed (1 pt each): BMP, LFT, CBC, INR Review of notes from a different specialty or different practice: renal Kathie Sanchez MD [facility] Medicine 09/06/2024 1:06 PM * Jean [...] 0659 09/06/24 0700 - 09/07/24 0659 Shift 4334-5240 4035-1564 1014-5665 24 Hour Total 8950-2598 5024-0051 7199-8502 24 Hour Total INTAKE P.O. 600 250 [...] -- 3.3* 3.7 3.7 Recent Labs 09/04/24 0509/04/24 1621 09/05/24 0724 09/06/24 0430 CALCIUM 8.5* 9.1 8.6 8.6 PHOS 2.2 -- 2.1 2.0* No results found for: IRON , TIBC , FERRITIN No results found for: [id number] , FOLATE Lab Results Component Value Date [...] <15 No results found for: MICROALBUR , [id number] In addition to the above an extensive [...] goals of ~70-75. - no indication for GEOPHYSICAL COMPUTER at this time JWALANT RONAK 09/06/2024 This note was completely edited, written [...] for Alcoholic cirrhosis of liver without ascites ([facility]). Assessment/Plan: A comprehensive medication evaluation was conducted through the [facility] electronic medical record review on interprofessional [...] the H3 Medicine Team. Chelsy Piper PharmD, [facility] Clinical Director Immunology - Internal Medicine Preferred Contact: [facility] Secured Chat 09/05/2024 2:17 PM * [...] Consult Staff. Gee May Nephrology fellow Pager [phone] Chief Complaint Chief Complaint Patient presents with [...] TIBC , FERRITIN No results found for: [id number] , FOLATE Lab Results Component Value Date [...] <15 No results found for: MICROALBUR , [id number] In addition to the above an extensive [...] 09/05/2024 11:51 PM EDT Associated attestation - Ronak, Aneudy - 09/05/2024 11:51 PM EDT Patient [...] goals of ~70-75. - no indication for GEOPHYSICAL COMPUTER at this time ANEUDY SIMONS 09/05/2024 This [...] 7:56 AM EDT Hospital Medicine Progress Note [facility] // [facility] Chief Concern / Reason for Follow-Up [...] BMPs to BID NADIYA (acute kidney injury) ([facility]) Admit Cr 3.01 (from 2.91 on 09/02, [...] kidney disease) stage 4, GFR 15-29 ml/min ([facility]) As above for NADIYA Metabolic encephalopathy Likely [...] pain that has since worsened and is 12/30 today. He has had regular, semi-formed, brown [...] #SBP Day 3/ ceftriaxone Cont albumin #NADIYA 2/2 #HRS Improving Receiving albumin Stopping midodrine for [...] min): total time personally spent today, including rwsy-ba-bqrb with patient and/or caregiver(s), as well as xax-gsuq-dg-face time spent in care coordination, consultation, reviewing records, and documentation was 55 minutes. Kathie Sanchez MD Hospital Medicine 09/06/2024 7:07 AM * Leatha Ceja [...] ineligible d/t alcohol use. Then re-admitted to [facility] 07/25-07/29 after worsening outpatient labs (NADIYA). also noted ongoing/worsening jaundice. Repeat US without ascites. His last drink was prior to admission at . During prior admission, renal function improved with volume expansion, held octreotide and midodrine. [facility] Admission -08/19/24 with generalized weakness, worsening [...] assessment and plan. 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 Date: 09/04/2024 Room: [address] Reviewed Pertinent hospital course: Yes Hospital [...] toilet at the end of the session 06/15 not a fall risk, independent mobility, and spouse in room. RN aware.) Details: RN notified;Call light/ needs within reach;visitor present Alarms: Bed Alarms Status: Not needed-patient on [place] fall risk precautions with other interventions in [...] (gastroesophageal reflux disease) Hypothyroidism Itching * Eulalio Nielsen, OT - 09/04/2024 2:41 PM EDT Occupational Therapy Initial Assessment and Discharge Name: Julien Anderson : 1985 Attending Physician: Kiet Ramirez MD Admission Diagnosis: No admission diagnoses are documented for this encounter. Date: 09/04/2024 Room: [address] Reviewed Pertinent hospital course: Yes Hospital [...] Additional Comments: pt ended session on toilet / not a fall risk, independent mobility, and spouse in room Details: RN notified;visitor present;Call light/ needs within reach Alarms: Bed Alarms Status: Not needed-patient on [place] fall risk precautions with other interventions in [...] 10:43 AM EDT Hospital Medicine Progress Note Health // [facility] [place] Chief Concern / Reason for Follow-Up Alcoholic [...] appropriate affect, pleasant, cooperative Laboratory Data Lab 09/04/2452109/03/24 1726 09/03/24 0529 09/02/24 1700 WBC 9.6 [...] TIME 32.0* 22.9* 22.2* Lab 09/04/24 0509/03/24 0509/02/24 1700 ALT 30 45 43 43 AST [...] at 09/03/2024 2:13 PM EDT US Duplex Rea-Aqq-Ewkhtio Comp Result Date: 09/03/2024 EXAM: US ABDOMEN COMPLETE EXAM: US DUPLEX [id number] COMPLETE INDICATION: Evaluate for cholecystitis COMPARISON: 09/03/2024 [...] EXAM: US ABDOMEN COMPLETE EXAM: US DUPLEX [id number] COMPLETE INDICATION: Evaluate for cholecystitis COMPARISON: 09/03/2024 [...] BMPs to BID NADIYA (acute kidney injury) ([facility]) Admit Cr 3.01 (from 2.91 on 09/02, [...] kidney disease) stage 4, GFR 15-29 ml/min ([facility]) As above for NADIYA Metabolic encephalopathy Likely [...] levothyroxine Itching - Cont home cholestyramine Thrombocytopenia ([facility]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 Hypertension No meds. Other [...] another specialty or practice, other licensed professional (PT/OT/BEAM WORKER/RT), or a non-medical community professional: hepatology Labs [...] this time. Thank you, Chelsy Piper PharmD, [facility] Clinical Director Immunology - Internal Medicine Preferred Contact: [employer] Secured Chat 09/03/2024 12:52 PM * Jarrod Alas MD - 09/03/2024 7:24 AM EDT [facility] ED Reassessment Note Julien Anderson is [...] for admission. Jarrod Alas MD Emergency Medicine [facility] * Rommel Mccoy MD - [...] - 09/03/2024 10:15 AM EDT Hospital Medicine [facility] // [facility] Name: Julien Anderson Chief Concern Abd [...] (37.2 ??C) Heart Rate: [96-118] 118 Resp: [9-] 18 BP: (110-151)/(70-91) 110/70 Intake/Output Summary (Last [...] affect, pleasant, cooperative Laboratory Data Lab 09/03/24 0509/02/24 1700 WBC 10.8 10.4 HEMOGLOBIN 11.9* 11.1* HEMATOCRIT 33.0* 30.7* MEAN CORPUSCULAR VOLUME 98.6 97.9 PLATELETS 71* 73* Lab 09/03/24 0509/02/24 1700 SODIUM 133 136 POTASSIUM 2.6* 2.7* CHLORIDE 100 101 CO2 20* 21 BUN 38* 39* CREATININE 3.01* 2.93* GLUCOSE 133* 137* Lab 09/03/24 0509/02/24 1700 CALCIUM 8.9 8.5* MAGNESIUM 2.0 -- Lab 09/03/24 0535 09/02/24 1700 INR 2.0* 1.9* PROTHROMBIN TIME 22.9* 22.2* Lab 09/03/24 0509/02/24 1700 ALT 45 43 43 AST 73* 68* 68* ALK PHOS 139* 140* 140* BILIRUBIN TOTAL 32.5* 35.4* 35.4* BILIRUBIN DIRECT 19.8* 20.97* ALBUMIN 3.4* 3.3* 3.3* Invalid input(s): WBCCAST , GRANCAST No results found for: BNP No results found for: TSH , T3FREE , FREET4 Diagnostic Studies and MDM Documentation US Duplex Ltw-Red-Vlfqzyy Comp Final Result IMPRESSION: ABDOMEN Cirrhosis and [...] kidney disease) stage 4, GFR 15-29 ml/min ([facility]) Admit Cr 3.01, 3.26 on repeat (from [...] another specialty or practice, other licensed professional (PT/OT/BEAM WORKER/RT), or a non-medical community professional: hepatology Labs [...] Mccoy MD - 09/03/2024 5:11 AM EDT [facility] ED Note Date of Service: 09/03/2024 [...] department physician Rhythm: normal sinus Rate: normal [place]: left Ectopy: none Conduction: Prolonged QT, left [...] renal injury with increased fluid status. Primary nurse private duty also recently concern for venous thrombosis; plan [...] inadvertent typographic errors. Rommel Mccoy MD Resident 09/03/24700 Cosigned by Ana Maria Ramey MD at [...] LLQ . Under sterile conditions, 5 Fr/7cm Imgureh catheter was inserted in a LLQ site [...] of findings/procedures, which can be located in [facility] Procedures (or [facility] Imaging) Tabs. Plan discussed with provider Ashley ABDULLAHI from Medicine team 09/04/2024, 3:51 PM. Please call with any questions. Shelia Logan CNP Vascular & Interventional Radiology 09/04/2024,3:51 PM [facility]: [phone]) * Rommel Mccoy MD - 09/03/2024 7:01 AM EDTAssociated Order(s): Paracentesis [facility] ED Procedure Note Emergency Department Procedures Paracentesis Date/Time: 09/03/2024 7:01 AM Performed by: Rommel Mccoy MD Authorized by: Ana Maria Ramey MD Consent: Consent obtained: Written Consent given by: Patient Risks, benefits, and alternatives were discussed: yes Risks discussed: Bleeding, bowel perforation, infection and pain Alternatives discussed: No treatment [place] protocol: Procedure explained and questions answered to [...] Time Spent: Time Spent with Patient: Total vcuf-bv-evmr time spent with patient (greater than 50% of the visit was for the purpose of discussion and counseling): 35 minutes. FARHANA CONTRERAS CNP Vascular & Interventional Radiology 09/08/2024,9:33 AM [facility]: [phone]) [1] Social History Tobacco Use Smoking Status [...] Consult Staff. Gee May Nephrology fellow Pager [phone] Chief Complaint Chief Complaint Patient presents with [...] 09/03/24 1343 09/04/24 0220 09/04/24 0509/04/24 1621 NA 136 -- 133 133 < [...] TIBC , FERRITIN No results found for: [id number] , FOLATE Lab Results Component Value Date [...] <15 No results found for: MICROALBUR , [id number] In addition to the above an extensive [...] 09/05/2024 12:13 AM EDT Associated attestation - Ronak, Aneudy - 09/05/2024 12:13 AM EDT Patient is [...] Seun Phillips - 09/04/2024 3:03 PM EDT [facility] Case Management/Social Work Department Brief Assessment Re-Admission within 30 days Planned or unplanned? Unplanned If planned: Reason? N/A If unplanned: Reason? Abd pain Discuss with patient any barriers to prevent re-admission? N/A Patient Information Admission diagnosis: Demographic verified and updated as needed Support Systems Designated decision maker (POA or Next of Kin): Nikkie Anderson Phone #: [phone] Relationship: Spouse Living Arrangements Prior to Hospitalization [...] at this time. 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 May need a work note at discharge. Patient has no history of or current mental health concerns or diagnoses. Patient has a history of or current alcohol abuse. Last consumed about 1.5 months ago. No home oxygen or dialysis. No history of detention facility or inpatient rehabilitation facility admissions. No [...] interest(s) are disclosed as appropriate. NUBIA Navas [facility] [phone] * Shelia Logan CNP - 09/04/2024 11:54 [...] He is alert. Labs: Recent Labs 09/03/24 0509/03/24 1726 09/04/24 05 WBC 10.8 9.9 9.6 [...] interval not displayed. Recent Labs 09/02/24 17009/03/24 0509/04/24 05 ALBUMIN 3.3* 3.3* 3.4* 3.2* BILIDIRECT [...] CNP Vascular & Interventional Radiology 09/04/2024,3:32 PM [facility]: [phone]) [1] Social History Tobacco Use Smoking Status [...] ineligible d/t alcohol use. Then re-admitted to [facility] 07/25-07/29 after worsening outpatient labs (NADIYA). also noted ongoing/worsening jaundice. Repeat US without ascites. His last drink was prior to admission at . During prior admission, renal function improved with volume expansion, held octreotide and midodrine. [facility] Admission -08/19/24 with generalized weakness, worsening [...] assessment and plan. 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 notified. * Minh Torres RN - 09/06/2024 [...] 09/03/2024 4:53 AM EDT Pt presents to [facility] with c/o abdominal pain. Pt has history [...] and is agreeable. 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 Labs being walked up to micro by [...] Patient will remain free of falls Goal: [place] Fall Precautions Outcome: Progressing * Plan of Care - Lydia Harrison RN - 09/09/2024 2:00 AM EDT Problem: High Fall Risk Precautions Goal: High Fall Risk Precautions Outcome: Progressing Problem: Patient will remain free of falls Goal: [place] Fall Precautions Outcome: Progressing Problem: Psychosocial Needs [...] Schultz RN - 09/08/2024 1:03 PM EDT [facility] Case Management/Social Work Department Progress Note [...] disease. PCP: Enedina Mcguire NP Home Pharmacy: [address] [address] [facility] [address] [facility] [id number] Medical Insurance Coverage: Payor: [facility] / Plan: [facility] GLOBAL / Product Type: *No Producttype* / Other Pertinent Information ЮЛИЯ VAZQUEZ received an update from medical team. Per team pt is not MR for discharge today. Pt with complaint of belly pain. Paracentesis scheduled for today with IR. C-diff and enteric pathogen panel to be performed today. Discharge Plan Anticipated discharge plan: Home NN Anticipated discharge date: 09/10/24 CM/SW will continue to follow and remain available for discharge planning needs. JAVAN SCHULTZ RN [phone] * Care Coordination - Kandy Fuentes - 09/07/2024 3:32 PM EDT [facility] Case Management/Social Work Department Progress Note [...] disease. PCP: Enedina Mcguire NP Home Pharmacy: [facility] [address] [place] [phone] [facility] [address] [facility] [id number] Medical Insurance Coverage: Payor: [employer] [employer] / Plan: [facility] GLOBAL / Product Type: *No Producttype* [...] Patient will remain free of falls Goal: [place] Fall Precautions Outcome: Progressing Problem: Daily Care [...] Patient will remain free of falls Goal: [place] Fall Precautions 09/06/[id number] by Baudilio Macario RN [...] Marshall RN - 09/05/2024 10:03 AM EDT [facility] Case Management/Social Work Department Progress Note Patient Information Patient Name: Julien Anderson Hospital day: 2 Inpatient/Observation: Inpatient Level of Care: Floor Admit date: 09/03/2024 Admission diagnosis: Alcoholic cirrhosis of liver with ascites (CMS-HCC) [K70.31] Abdominal pain, unspecified abdominal location [R10.9] PMH: has a past medical history of Alcoholic cirrhosis of liver ([facility]), Alcoholic hepatitis, Esophageal varices ([facility]HCC), Hepatorenal syndrome ([facility]- HCC), Hypertension, Other hyperlipidemia (07/26/2024), Renal cell carcinoma ([facility]-HCC), Thrombocytopenia ([facility]), and Thyroid disease. PCP: Enedina Mcguire NP Home Pharmacy: [facility] [id number] [address] [facility] [address] [facility] [id number] Medical Insurance Coverage: Payor: [facility] / Plan: [facility] GLOBAL / Product Type: *No Producttype* / Other Pertinent Information Per team in interdisciplinary rounds, patient is not medically ready for discharge today. SBP and cirrhosis, IV ATB; renal consulted for NADIYA, receiving albumin. Discharge Plan Anticipated discharge plan: Home Anticipated discharge date: 09/08 CM/MEREDITH will continue to follow and remain available for discharge planning needs. Abiola Marshall RN/Cloth Cutting InspectorMuck Operator Services [phone] * Plan of Care - Minh Torres RN - 09/05/2024 12:50 AM EDT Problem: High Fall Risk Precautions Goal: [place] Fall Risk Precautions Outcome: Progressing documented in this encounter Plan of Treatment Upcoming Encounters Date Type Department Care Team (Late st Contact Info) Description 12/05/2024 8:01 AM EDT Hospital Encounter [facility] ENDOSCOPY [address] [place] [phone] Chris Orosco MD [address] [place] [phone] 12/05/2024 8:01 AM EDT - 12/05/2024 8:31 AM EDT Surgery [facility] ENDOSCOPY [address] [place] [phone] Chris Orosco MD [address] [place] [phone] EGD Scheduled Procedures Name Priority Associated Diagnoses Date/Ti me EGD Cirrhosis of liver with ascites, unspecified hepatic cirrhosis type ([facility]) 12/05/2024 8:01 AM EDT documented as of [...] STAT 09/03/2024 10:49 AM EDT US DUPLEX [id number] COMPLETE STAT 09/03/2024 10:30 AM EDT US [...] PM EDT) Gram Stain Result Cytospin Results: [facility] Gram Stain Result Polymorphonuclear Leukocytes Seen; [facility] Gram Stain Result No Organisms Seen; [facility] Culture Result No Growth After 5 Days [facility] Paracentesis Fluid ABDOMINOPELVIC CAVITY STRUCTURE / Unknown 09/09/2024 2:57 PM EDT 09/09/2024 3:38 PM EDT Ashley JACOME MICROBIOLOGY - GENERAL ORDERA BLES Final Result [facility] [address] * Anaerobic culture (09/09/2024 2:56 PM EDT) Culture Result No Anaerobes Isolated in 5 Days [facility] Peritoneal Fluid ABDOMEN / Unknown 2024 2:56 PM EDT 09/09/2024 4:12 PM EDT Ashley JACOME MICROBIOLOGY - GENERAL ORDERA BLES Final Result Performing Organization Address City/[facility]/ZIP Co de Phone Number [facility] [address] [facility]. [address] * Body Fluid Cell Count (09/09/2024 2:56 PM EDT) Color, Fluid Yellow 09/09/2024 5:27 PM EDT [facility] Clarity, Fluid Clear 09/09/2024 5:27 PM EDT [facility] Neutrophil %, Fluid 14 % 09/09/2024 5:27 PM EDT [facility] Lymphocytes %, Fluid 20 % 09/09/2024 5:27 PM EDT [facility] Mesothelial %, Fluid 5 % 09/09/2024 5:27 PM EDT [facility] Macrophage %, Fluid 61 % 09/09/2024 5:27 PM EDT [facility] RBC, Fluid 0 /uL 09/09/2024 5:27 PM EDT [facility] Total Nucleated Cells, Fluid 272 /uL 09/09/2024 5:27 PM EDT [facility] Comment:Total Nucleated Cell s represent WBCs and other nucleated cells in the fluid such as lining cells. Paracentesis Fluid ABDOMEN / Unknown 08/13 2:56 PM EDT 09/09/2024 3:38 PM EDT us Ashley JACOME BODY FLUIDS AND STOOLS ORDERA BLES Final Result [facility] [address] [place] [address], [facility] * PARACENTESIS (09/09/2024 2:19 PM [...] - 15.1 seconds 09/09/2024 6:52 AM EDT [facility] INR 2.2(H) 0.9 - 1.1 09/09/2024 6:52 AM EDT [facility] Comment: RECOMMENDED THERAPEUTIC RANGES USING INR : Stable oral anticoagulant therapy: 2.0 - 3.0 Mechanical prosthetic heart valve: 2.5 - 3.5 Recurrent acute myocardial infarction: 2.5 - 3.5 Plasma 09/09/2024 6:12 AM EDT 09/09/2024 6:37 AM EDT Kathie Sanchez MD LAB BLOOD ORDERABLES Final Re sult [facility] [address] [place] [address], [facility] * (ABNORMAL) Hepatic Function Panel, AM (09/09/2024 6:12 AM EDT) Total Bilirubin 20.2(H) 0.0 - 1.5 mg/dL 09/09/2024 7:09 AM EDT [facility] Bilirubin, Direct 9.75(H) 0.00 - 0.40 mg/dL 09/09/2024 7:09 AM EDT [facility] AST 55(H) 13 - 39 U/L 09/09/2024 7:09 AM EDT [facility] ALT 26 7 - 52 U/L 09/09/2024 7:09 AM EDT [facility] Alkaline Phosphatase 152(H) 36 - 125 U/L 09/09/2024 7:09 AM EDT [facility] Total Protein 5.0(L) 6.4 - 8.9 g/dL 09/09/2024 7:09 AM EDT [facility] Albumin 3.7 3.5 - 5.7 g/dL 09/09/2024 7:09 AM EDT [facility] Bilirubin, Indirect 10.45(H) 0.00 - 1.10 mg/dL 09/09/2024 7:09 AM EDT [facility] Plasma 09/09/2024 6:12 AM EDT 09/09/2024 6:37 AM EDT Kathie Sanchez MD LAB BLOOD ORDERABLES Final Re sult [facility] [address] [place] [address], [facility] * (ABNORMAL) CBC, AM (09/09/2024 6:12 AM EDT) WBC 8.3 3.8 - 10.8 10E3/uL 09/09/2024 6:50 AM EDT [facility] RBC 2.34(L) 4.20 - 5.80 10E6/uL 09/09/2024 6:50 AM EDT [facility] Hemoglobin 8.7(L) 13.2 - 17.1 g/dL 09/09/2024 6:50 AM EDT [facility] Hematocrit 23.6(L) 38.5 - 50.0 % 09/09/2024 6:50 AM EDT [facility] MCV 100.9(H) 80.0 - 100.0 fL 09/09/2024 6:50 AM EDT [facility] MCH 37.3(H) 27.0 - 33.0 pg 09/09/2024 6:50 AM EDT [facility] MCHC 36.9(H) 32.0 - 36.0 g/dL 09/09/2024 6:50 AM EDT [facility] RDW 22.7(H) 11.0 - 15.0 % 09/09/2024 6:50 AM EDT [facility] Platelets 45(L) 140 - 400 10E3/uL 09/09/2024 6:50 AM EDT [facility] Comment:CNV MPV 8.6 7.5 - 11.5 fL 09/09/2024 6:50 AM EDT [facility] Whole Blood 09/09/2024 6:12 AM EDT 09/09/2024 6:37 AM EDT Kathie Sanchez MD LAB BLOOD ORDERABLES Final Re sult [facility] [address] [facility]. [address] * Magnesium, AM (09/09/2024 6:12 AM EDT) Magnesium 1.7 1.5 - 2.5 mg/dL 09/09/2024 7:09 AM EDT [facility] Plasma 09/09/2024 6:12 AM EDT 09/09/2024 6:37 AM EDT us Kathie Sanchez MD LAB BLOOD ORDERABLES Final Re sult Performing Organization Address City/[facility]/ZIP Co de Phone Number [facility] [address] [facility]. [address] * (ABNORMAL) Renal Function Panel w/EGFR (09/09/2024 6:12 AM EDT) Sodium 135 133 - 146 mmol/L 09/09/2024 7:09 AM EDT [facility] Potassium 3.5 3.5 - 5.3 mmol/L 09/09/2024 7:09 AM EDT [facility] Chloride 110 98 - 110 mmol/L 09/09/2024 7:09 AM EDT [facility] CO2 15(L) 21 - 33 mmol/L 09/09/2024 7:09 AM EDT [facility] Anion Gap 10 3 - 16 mmol/L 09/09/2024 7:09 AM EDT [facility] BUN 30(H) 7 - 25 mg/dL 09/09/2024 7:09 AM EDT [facility] Creatinine 2.47(H) 0.60 - 1.30 mg/dL 09/09/2024 7:09 AM EDT [facility] Glucose 129(H) 70 - 100 mg/dL 09/09/2024 7:09 AM EDT [facility] Calcium 8.4(L) 8.6 - 10.3 mg/dL 09/09/2024 7:09 AM EDT [facility] Phosphorus 2.3 2.1 - 4.7 mg/dL 09/09/2024 7:09 AM EDT [facility] Albumin 3.7 3.5 - 5.7 g/dL 09/09/2024 7:09 AM EDT [facility] Osmolality, Calculated 288 278 - 305 mOsm/kg 09/09/2024 7:09 AM EDT [facility] EGFR 33 09/09/2024 7:09 AM EDT [facility] Comment:As of 2021, the estimated [...] MD LAB BLOOD ORDERABLES Final Re sult [facility] [address] [place] [address], [facility] * Clostridium Difficile Toxin A/B Antigen (09/09/2024 4:58 AM EDT) CDIFF Tox AGN Negative Negative 09/09/2024 1:57 PM EDT [facility] Comment:C. difficile nucleic acid testing [...] FLUIDS AND STOOLS ORDERA BLES Final Result [facility] [address] * Enteric Pathogen Panel (09/09/2024 4:58 AM EDT) Campylobacter Group (C. ecoli, C. jejuni, C. trino) Not Detected Not Detected 09/09/2024 9:44 AM EDT [facility] Salmonella species Not Detected Not Detected 09/09/2024 9:44 AM EDT [facility] Shigella species Not Detected Not Detected 09/09/2024 9:44 AM EDT [facility] Vibrio Group (Vibrio cholerae, Vibrio parahaemolyticus) Not Detected Not Detected 09/09/2024 9:44 AM EDT [facility] Yersinia enterocolitica Not Detected Not Detected 09/09/2024 9:44 AM EDT [facility] Shiga toxin 1 Not Detected Not Detected 09/09/2024 9:44 AM EDT [facility] Shiga toxin 2 Not Detected Not Detected 09/09/2024 9:44 AM EDT [facility] Norovirus Not Detected Not Detected 09/09/2024 9:44 AM EDT [facility] Rotavirus Not Detected Not Detected 09/09/2024 9:44 AM EDT [facility] Comment: The Enteric Pathogen Panel [...] ORDERA BLES Final Result Performing Organization Address City/[facility]/ZIP Co de Phone Number [facility] [address] * (ABNORMAL) Clostridium difficile DNA Amplification [...] FLUIDS AND STOOLS ORDERA BLES Final Result [facility] [address] [facility]. [address] * (ABNORMAL) Renal Function Panel w/EGFR (09/08/2024 3:50 PM EDT) Pathologist [facility] Sodium 136 133 - 146 mmol/L 09/08/2024 6:01 PM EDT [facility] Potassium 3.5 3.5 - 5.3 mmol/L 09/08/2024 6:01 PM EDT [facility] Chloride 110 98 - 110 mmol/L 09/08/2024 6:01 PM EDT [facility] CO2 13(L) 21 - 33 mmol/L 09/08/2024 6:01 PM EDT [facility] Anion Gap 13 3 - 16 mmol/L 09/08/2024 6:01 PM EDT [facility] BUN 29(H) 7 - 25 mg/dL 09/08/2024 6:01 PM EDT [facility] Creatinine 2.24(H) 0.60 - 1.30 mg/dL 09/08/2024 6:01 PM EDT [facility] Glucose 114(H) 70 - 100 mg/dL 09/08/2024 6:01 PM EDT [facility] Calcium 8.5(L) 8.6 - 10.3 mg/dL 09/08/2024 6:01 PM EDT [facility] Phosphorus 2.3 2.1 - 4.7 mg/dL 09/08/2024 6:01 PM EDT [facility] Albumin 3.5 3.5 - 5.7 g/dL 09/08/2024 6:01 PM EDT [facility] Osmolality, Calculated 289 278 - 305 mOsm/kg 09/08/2024 6:01 PM EDT [facility] EGFR 37 09/08/2024 6:01 PM EDT [facility] Comment:As of 2021, the estimated [...] MD LAB BLOOD ORDERABLES Final Res ult [facility] [address] * (ABNORMAL) Renal Function Panel w/EGFR (09/08/2024 2:08 PM EDT) Sodium 136 133 - 146 mmol/L 09/08/2024 2:55 PM EDT [facility] Potassium 3.3(L) 3.5 - 5.3 mmol/L 09/08/2024 2:55 PM EDT [facility] Chloride 112(H) 98 - 110 mmol/L 09/08/2024 2:55 PM EDT [facility] CO2 16(L) 21 - 33 mmol/L 09/08/2024 2:55 PM EDT [facility] Anion Gap 8 3 - 16 mmol/L 09/08/2024 2:55 PM EDT [facility] BUN 30(H) 7 - 25 mg/dL 09/08/2024 2:55 PM EDT [facility] Creatinine 2.22(H) 0.60 - 1.30 mg/dL 09/08/2024 2:55 PM EDT [facility] Glucose 135(H) 70 - 100 mg/dL 09/08/2024 2:55 PM EDT [facility] Calcium 8.1(L) 8.6 - 10.3 mg/dL 09/08/2024 2:55 PM EDT [facility] Phosphorus 1.9(L) 2.1 - 4.7 mg/dL 09/08/2024 2:55 PM EDT [facility] Albumin 3.3(L) 3.5 - 5.7 g/dL 09/08/2024 2:55 PM EDT [facility] Osmolality, Calculated 290 278 - 305 mOsm/kg 09/08/2024 2:55 PM EDT [facility] EGFR 37 09/08/2024 2:55 PM EDT [facility] Comment:As of 2021, the estimated [...] MD LAB BLOOD ORDERABLES Final Re sult [facility] [address] [facility] [place] [address], [facility] * (ABNORMAL) Hepatic Function Panel, AM (09/08/2024 4:05 AM EDT) Total Bilirubin 18.7(H) 0.0 - 1.5 mg/dL 09/08/2024 7:11 AM EDT [facility] Bilirubin, Direct 9.06(H) 0.00 - 0.40 mg/dL 09/08/2024 7:11 AM EDT [facility] AST 48(H) 13 - 39 U/L 09/08/2024 7:11 AM EDT [facility] ALT 26 7 - 52 U/L 09/08/2024 7:11 AM EDT [facility] Alkaline Phosphatase 114 36 - 125 U/L 09/08/2024 7:11 AM EDT [facility] Total Protein 4.8(L) 6.4 - 8.9 g/dL 09/08/2024 7:11 AM EDT [facility] Albumin 3.4(L) 3.5 - 5.7 g/dL 09/08/2024 7:11 AM EDT [facility] Bilirubin, Indirect 9.64(H) 0.00 - 1.10 mg/dL 09/08/2024 7:11 AM EDT [facility] Plasma 09/08/2024 4:05 AM EDT 09/08/2024 4:26 AM EDT Azalea Hughes DO LAB BLOOD ORDERABLES Final Res ult [facility] [address] [place] [address], [facility] * (ABNORMAL) Protime-INR, AM (09/08/2024 4:05 AM EDT) Protime 26.0(H) 12.1 - 15.1 seconds 09/08/2024 4:39 AM EDT [facility] INR 2.3(H) 0.9 - 1.1 09/08/2024 4:39 AM EDT [facility] Comment: RECOMMENDED THERAPEUTIC RANGES USING INR : Stable oral anticoagulant therapy: 2.0 - 3.0 Mechanical prosthetic heart valve: 2.5 - 3.5 Recurrent acute myocardial infarction: 2.5 - 3.5 Plasma 09/08/2024 4:05 AM EDT 09/08/2024 4:20 AM EDT [facility] LAB BLOOD ORDERABLES Final Res ult [facility] [address] [facility] * Magnesium (09/08/2024 4:05 AM EDT) Magnesium 1.5 1.5 - 2.5 mg/dL 09/08/2024 7:11 AM EDT [facility] Plasma 09/08/2024 4:05 AM EDT 09/08/2024 4:26 AM EDT [facility] LAB BLOOD ORDERABLES Final Res ult Performing Organization Address [facility] Co de Phone Number [facility] [address] [facility]. [address] * (ABNORMAL) Renal Function Panel w/EGFR (09/08/2024 4:05 AM EDT) Sodium 137 133 - 146 mmol/L 09/08/2024 5:37 AM EDT [facility] Potassium 3.3(L) 3.5 - 5.3 mmol/L 09/08/2024 5:37 AM EDT [facility] Chloride 112(H) 98 - 110 mmol/L 09/08/2024 5:37 AM EDT [facility] CO2 13(L) 21 - 33 mmol/L 09/08/2024 7:11 AM EDT [facility] Anion Gap 12 3 - 16 mmol/L 09/08/2024 7:11 AM EDT [facility] BUN 31(H) 7 - 25 mg/dL 09/08/2024 7:11 AM EDT [facility] Creatinine 2.36(H) 0.60 - 1.30 mg/dL 09/08/2024 7:11 AM EDT [facility] Glucose 147(H) 70 - 100 mg/dL 09/08/2024 7:11 AM EDT [facility] Calcium 8.3(L) 8.6 - 10.3 mg/dL 09/08/2024 7:11 AM EDT [facility] Phosphorus 2.2 2.1 - 4.7 mg/dL 09/08/2024 7:11 AM EDT [facility] Albumin 3.4(L) 3.5 - 5.7 g/dL 09/08/2024 7:11 AM EDT [facility] Osmolality, Calculated 293 278 - 305 mOsm/kg 09/08/2024 7:11 AM EDT [facility] EGFR 35 09/08/2024 7:11 AM EDT [facility] Comment:As of 2021, the estimated [...] DO LAB BLOOD ORDERABLES Final Res ult [facility] [address] [place] [address], [facility] * (ABNORMAL) CBC (09/08/2024 4:05 AM EDT) WBC 6.5 3.8 - 10.8 10E3/uL 09/08/2024 5:00 AM EDT [facility] RBC 2.21(L) 4.20 - 5.80 10E6/uL 09/08/2024 5:00 AM EDT [facility] Hemoglobin 8.0(L) 13.2 - 17.1 g/dL 09/08/2024 5:00 AM EDT [facility] Hematocrit 22.3(L) 38.5 - 50.0 % 09/08/2024 5:00 AM EDT [facility] MCV 100.8(H) 80.0 - 100.0 fL 09/08/2024 5:00 AM EDT [facility] MCH 36.1(H) 27.0 - 33.0 pg 09/08/2024 5:00 AM EDT [facility] MCHC 35.8 32.0 - 36.0 g/dL 09/08/2024 5:00 AM EDT [facility] RDW 23.4(H) 11.0 - 15.0 % 09/08/2024 5:00 AM EDT [facility] Platelets 43(L) 140 - 400 10E3/uL 09/08/2024 5:00 AM EDT [facility] Comment: CNV Specimen checked for clots. None detected. MPV 8.8 7.5 - 11.5 fL 09/08/2024 5:00 AM EDT [facility] Whole Blood 09/08/2024 4:05 AM EDT 09/08/2024 4:20 AM EDT Azalea Hughes DO LAB BLOOD ORDERABLES Final Res ult [facility] [address] [place] [address], [facility] * (ABNORMAL) Renal Function Panel w/EGFR (09/07/2024 3:36 PM EDT) Sodium 139 133 - 146 mmol/L 09/07/2024 4:10 PM EDT [facility] Potassium 3.4(L) 3.5 - 5.3 mmol/L 09/07/2024 4:10 PM EDT [facility] Chloride 112(H) 98 - 110 mmol/L 09/07/2024 4:10 PM EDT [facility] CO2 18(L) 21 - 33 mmol/L 09/07/2024 4:10 PM EDT [facility] Anion Gap 9 3 - 16 mmol/L 09/07/2024 4:10 PM EDT [facility] BUN 34(H) 7 - 25 mg/dL 09/07/2024 4:10 PM EDT [facility] Creatinine 2.40(H) 0.60 - 1.30 mg/dL 09/07/2024 4:10 PM EDT [facility] Glucose 125(H) 70 - 100 mg/dL 09/07/2024 4:10 PM EDT [facility] Calcium 8.5(L) 8.6 - 10.3 mg/dL 09/07/2024 4:10 PM EDT [facility] Phosphorus 2.0(L) 2.1 - 4.7 mg/dL 09/07/2024 4:10 PM EDT [facility] Albumin 3.6 3.5 - 5.7 g/dL 09/07/2024 4:10 PM EDT [facility] Osmolality, Calculated 297 278 - 305 mOsm/kg 09/07/2024 4:10 PM EDT [facility] EGFR 34 09/07/2024 4:10 PM EDT [facility] Comment:As of 2021, the estimated [...] 3:36 PM EDT 09/07/2024 3:43 PM EDT [employer] DO LAB BLOOD ORDERABLES Final Res ult Performing Organization Address [facility] Co de Phone Number [facility] [address] * (ABNORMAL) Protime-INR, AM (09/07/2024 3:42 AM EDT) Protime 26.1(H) 12.1 - 15.1 seconds 09/07/2024 4:21 AM EDT [facility] INR 2.3(H) 0.9 - 1.1 09/07/2024 4:21 AM EDT [facility] Comment: RECOMMENDED THERAPEUTIC RANGES USING INR : Stable oral anticoagulant therapy: 2.0 - 3.0 Mechanical prosthetic heart valve: 2.5 - 3.5 Recurrent acute myocardial infarction: 2.5 - 3.5 Plasma 09/07/2024 3:42 AM EDT 09/07/2024 3:50 AM EDT [facility] BLOOD ORDERABLES Final Res ult Performing Organization Address [facility] Co de Phone Number [facility] [address] * (ABNORMAL) Hepatic Function Panel, AM (09/07/2024 3:42 AM EDT) Total Bilirubin 18.9(H) 0.0 - 1.5 mg/dL 09/07/2024 5:37 AM EDT [facility] Bilirubin, Direct 9.8(H) 0.0 - 0.4 mg/dL 09/07/2024 5:37 AM EDT [facility] AST 47(H) 13 - 39 U/L 09/07/2024 5:37 AM EDT [facility] ALT 27 7 - 52 U/L 09/07/2024 5:37 AM EDT [facility] Alkaline Phosphatase 104 36 - 125 U/L 09/07/2024 5:37 AM EDT [facility] Total Protein 4.9(L) 6.4 - 8.9 g/dL 09/07/2024 5:37 AM EDT [facility] Albumin 3.5 3.5 - 5.7 g/dL 09/07/2024 5:37 AM EDT [facility] Bilirubin, Indirect 9.1(H) 0.0 - 1.1 mg/dL 09/07/2024 5:37 AM EDT [facility] Plasma 09/07/2024 3:42 AM EDT 09/07/2024 3:54 AM EDT [facility] LAB BLOOD ORDERABLES Final Res ult Performing Organization Address City/[facility]/ZIP Co de Phone Number [facility] [address] [facility] * Magnesium (09/07/2024 3:42 AM EDT) Magnesium 1.7 1.5 - 2.5 mg/dL 09/07/2024 5:37 AM EDT [facility] Plasma 09/07/2024 3:42 AM EDT 09/07/2024 3:54 AM EDT [facility]ale[facility] Hughes LAB BLOOD ORDERABLES Final Res ult Performing Organization Address [facility] Co de Phone Number [facility] [address] [facility] * (ABNORMAL) Renal Function Panel w/EGFR (09/07/2024 3:42 AM EDT) Sodium 137 133 - 146 mmol/L 09/07/2024 5:37 AM EDT [facility] Potassium 3.2(L) 3.5 - 5.3 mmol/L 09/07/2024 5:37 AM EDT [facility] Chloride 111(H) 98 - 110 mmol/L 09/07/2024 5:37 AM EDT [facility] CO2 15(L) 21 - 33 mmol/L 09/07/2024 5:37 AM EDT [facility] Anion Gap 11 3 - 16 mmol/L 09/07/2024 5:37 AM EDT [facility] BUN 36(H) 7 - 25 mg/dL 09/07/2024 5:37 AM EDT [facility] Creatinine 2.60(H) 0.60 - 1.30 mg/dL 09/07/2024 5:37 AM EDT [facility] Glucose 150(H) 70 - 100 mg/dL 09/07/2024 5:37 AM EDT [facility] Calcium 8.3(L) 8.6 - 10.3 mg/dL 09/07/2024 5:37 AM EDT [facility] Phosphorus 1.9(L) 2.1 - 4.7 mg/dL 09/07/2024 5:37 AM EDT [facility] Albumin 3.5 3.5 - 5.7 g/dL 09/07/2024 5:37 AM EDT [facility] Osmolality, Calculated 295 278 - 305 mOsm/kg 09/07/2024 5:37 AM EDT [facility] EGFR 31 09/07/2024 5:37 AM EDT [facility] Comment:As of 2021, the estimated [...] DO LAB BLOOD ORDERABLES Final Res ult [facility] [address] [place] [address], [facility] * (ABNORMAL) CBC (09/07/2024 3:42 AM EDT) WBC 4.0 3.8 - 10.8 10E3/uL 09/07/2024 4:09 AM EDT [facility] RBC 2.06(L) 4.20 - 5.80 10E6/uL 09/07/2024 4:09 AM EDT [facility] Hemoglobin 7.4(L) 13.2 - 17.1 g/dL 09/07/2024 4:09 AM EDT [facility] Hematocrit 20.7(L) 38.5 - 50.0 % 09/07/2024 4:09 AM EDT [facility] MCV 100.2(H) 80.0 - 100.0 fL 09/07/2024 4:09 AM EDT [facility] MCH 35.8(H) 27.0 - 33.0 pg 09/07/2024 4:09 AM EDT [facility] MCHC 35.7 32.0 - 36.0 g/dL 09/07/2024 4:09 AM EDT [facility] RDW 22.4(H) 11.0 - 15.0 % 09/07/2024 4:09 AM EDT [facility] Platelets 40(L) 140 - 400 10E3/uL 09/07/2024 4:09 AM EDT [facility] Comment: CNV Specimen checked for clots. None detected. MPV 8.6 7.5 - 11.5 fL 09/07/2024 4:09 AM EDT [facility] Whole Blood 09/07/2024 3:42 AM EDT 09/07/2024 3:50 AM EDT us Azalea Hughes DO LAB BLOOD ORDERABLES Final Res ult [facility] [address] [place] [address], [facility] * (ABNORMAL) CBC (09/06/2024 4:37 PM EDT) WBC 5.1 3.8 - 10.8 10E3/uL 09/06/2024 5:19 PM EDT [facility] RBC 2.32(L) 4.20 - 5.80 10E6/uL 09/06/2024 5:19 PM EDT [facility] Hemoglobin 8.3(L) 13.2 - 17.1 g/dL 09/06/2024 5:19 PM EDT [facility] Hematocrit 23.3(L) 38.5 - 50.0 % 09/06/2024 5:19 PM EDT [facility] MCV 100.4(H) 80.0 - 100.0 fL 09/06/2024 5:19 PM EDT [facility] MCH 35.8(H) 27.0 - 33.0 pg 09/06/2024 5:19 PM EDT [facility] MCHC 35.7 32.0 - 36.0 g/dL 09/06/2024 5:19 PM EDT [facility] RDW 22.7(H) 11.0 - 15.0 % 09/06/2024 5:19 PM EDT [facility] Platelets 45(L) 140 - 400 10E3/uL 09/06/2024 5:19 PM EDT [facility] Comment:CNV MPV 8.1 7.5 - 11.5 fL 09/06/2024 5:19 PM EDT [facility] Whole Blood 09/06/2024 4:37 PM EDT 09/06/2024 4:45 PM EDT us Azalea Hughes DO LAB BLOOD ORDERABLES Final Res ult [facility] [address] [id number] * (ABNORMAL) Renal Function Panel w/EGFR (09/06/2024 4:37 PM EDT) Sodium 137 133 - 146 mmol/L 09/06/2024 5:17 PM EDT [facility] Potassium 3.2(L) 3.5 - 5.3 mmol/L 09/06/2024 5:17 PM EDT [facility] Chloride 109 98 - 110 mmol/L 09/06/2024 5:17 PM EDT [facility] CO2 17(L) 21 - 33 mmol/L 09/06/2024 5:17 PM EDT [facility] Anion Gap 11 3 - 16 mmol/L 09/06/2024 5:17 PM EDT [facility] BUN 37(H) 7 - 25 mg/dL 09/06/2024 5:17 PM EDT [facility] Creatinine 2.66(H) 0.60 - 1.30 mg/dL 09/06/2024 5:17 PM EDT [facility] Glucose 108(H) 70 - 100 mg/dL 09/06/2024 5:17 PM EDT [facility] Calcium 8.7 8.6 - 10.3 mg/dL 09/06/2024 5:17 PM EDT [facility] Phosphorus 2.2 2.1 - 4.7 mg/dL 09/06/2024 5:17 PM EDT [facility] Albumin 3.9 3.5 - 5.7 g/dL 09/06/2024 5:17 PM EDT [facility] Osmolality, Calculated 293 278 - 305 mOsm/kg 09/06/2024 5:17 PM EDT [facility] EGFR 30 09/06/2024 5:17 PM EDT [facility] Comment:As of 2021, the estimated [...] DO LAB BLOOD ORDERABLES Final Res ult [facility] [address] * (ABNORMAL) Hepatic Function Panel, AM (09/06/2024 4:30 AM EDT) Total Bilirubin 21.3(H) 0.0 - 1.5 mg/dL 09/06/2024 5:40 AM EDT [facility] Bilirubin, Direct 14.43(H) 0.00 - 0.40 mg/dL 09/06/2024 5:40 AM EDT [facility] AST 46(H) 13 - 39 U/L 09/06/2024 5:40 AM EDT [facility] ALT 25 7 - 52 U/L 09/06/2024 5:40 AM EDT [facility] Alkaline Phosphatase 85 36 - 125 U/L 09/06/2024 5:40 AM EDT [facility] Total Protein 5.0(L) 6.4 - 8.9 g/dL 09/06/2024 5:40 AM EDT [facility] Albumin 3.7 3.5 - 5.7 g/dL 09/06/2024 5:40 AM EDT [facility] Bilirubin, Indirect 6.87(H) 0.00 - 1.10 mg/dL 09/06/2024 5:40 AM EDT [facility] Plasma 09/06/2024 4:30 AM EDT 09/06/2024 5:03 AM EDT us Azalea Hughes DO LAB BLOOD ORDERABLES Final Res ult [facility] [address] * (ABNORMAL) Protime-INR, AM (09/06/2024 4:30 AM EDT) Protime 25.3(H) 12.1 - 15.1 seconds 09/06/2024 5:26 AM EDT [facility] INR 2.2(H) 0.9 - 1.1 09/06/2024 5:26 AM EDT [facility] Comment: RECOMMENDED THERAPEUTIC RANGES USING INR : Stable oral anticoagulant therapy: 2.0 - 3.0 Mechanical prosthetic heart valve: 2.5 - 3.5 Recurrent acute myocardial infarction: 2.5 - 3.5 Plasma 09/06/2024 4:30 AM EDT 09/06/2024 5:02 AM EDT [facility] LAB BLOOD ORDERABLES Final Res ult Performing Organization Address City/[facility]/ZIP Co de Phone Number [facility] [address] [facility]. [address] * Magnesium (09/06/2024 4:30 AM EDT) Magnesium 1.8 1.5 - 2.5 mg/dL 09/06/2024 5:40 AM EDT [facility] Plasma 09/06/2024 4:30 AM EDT 09/06/2024 5:03 AM EDT [facility] LAB BLOOD ORDERABLES Final Res ult Performing Organization Address [facility] Co de Phone Number [facility] [address] * (ABNORMAL) Renal Function Panel w/EGFR (09/06/2024 4:30 AM EDT) Sodium 137 133 - 146 mmol/L 09/06/2024 5:29 AM EDT [facility] Potassium 3.1(L) 3.5 - 5.3 mmol/L 09/06/2024 5:29 AM EDT [facility] Chloride 109 98 - 110 mmol/L 09/06/2024 5:29 AM EDT [facility] CO2 17(L) 21 - 33 mmol/L 09/06/2024 5:29 AM EDT [facility] Anion Gap 11 3 - 16 mmol/L 09/06/2024 5:29 AM EDT [facility] BUN 40(H) 7 - 25 mg/dL 09/06/2024 5:29 AM EDT [facility] Creatinine 2.70(H) 0.60 - 1.30 mg/dL 09/06/2024 5:29 AM EDT [facility] Glucose 122(H) 70 - 100 mg/dL 09/06/2024 5:29 AM EDT [facility] Calcium 8.6 8.6 - 10.3 mg/dL 09/06/2024 5:29 AM EDT [facility] Phosphorus 2.0(L) 2.1 - 4.7 mg/dL 09/06/2024 5:40 AM EDT [facility] Albumin 3.7 3.5 - 5.7 g/dL 09/06/2024 5:40 AM EDT [facility] Osmolality, Calculated 295 278 - 305 mOsm/kg 09/06/2024 5:29 AM EDT [facility] EGFR 29 09/06/2024 5:29 AM EDT [facility] Comment:As of 2021, the estimated [...] DO LAB BLOOD ORDERABLES Final Res ult [facility] [address] [place] [address], [facility] * (ABNORMAL) CBC (09/06/2024 4:30 AM EDT) WBC 4.3 3.8 - 10.8 10E3/uL 09/06/2024 6:03 AM EDT [facility] RBC 2.28(L) 4.20 - 5.80 10E6/uL 09/06/2024 6:03 AM EDT [facility] Hemoglobin 8.4(L) 13.2 - 17.1 g/dL 09/06/2024 6:03 AM EDT [facility] Hematocrit 22.8(L) 38.5 - 50.0 % 09/06/2024 6:03 AM EDT [facility] MCV 99.9 80.0 - 100.0 fL 09/06/2024 6:03 AM EDT [facility] MCH 36.9(H) 27.0 - 33.0 pg 09/06/2024 6:03 AM EDT [facility] MCHC 36.9(H) 32.0 - 36.0 g/dL 09/06/2024 6:03 AM EDT [facility] RDW 23.2(H) 11.0 - 15.0 % 09/06/2024 6:03 AM EDT [facility] Platelets 41(L) 140 - 400 10E3/uL 09/06/2024 6:03 AM EDT [facility] Comment: Specimen checked for clots. None detected. Slide Reviewed for PLT Clumps. None Seen. MPV 8.9 7.5 - 11.5 fL 09/06/2024 6:03 AM EDT [facility] Whole Blood 09/06/2024 4:30 AM EDT 09/06/2024 5:03 AM EDT us Azalea Hughes DO LAB BLOOD ORDERABLES Final Res ult Performing Organization Address City/State/[facility] Co de Phone Number [facility] [address] * (ABNORMAL) Protime-INR, AM (09/05/2024 7:24 AM EDT) Protime 27.8(H) 12.1 - 15.1 seconds 09/05/2024 8:18 AM EDT [facility] INR 2.5(H) 0.9 - 1.1 09/05/2024 8:18 AM EDT [facility] Comment: RECOMMENDED THERAPEUTIC RANGES USING INR : Stable oral anticoagulant therapy: 2.0 - 3.0 Mechanical prosthetic heart valve: 2.5 - 3.5 Recurrent acute myocardial infarction: 2.5 - 3.5 Plasma 09/05/2024 7:24 AM EDT 09/05/2024 7:38 AM EDT Kiet Ramirez MD LAB BLOOD ORDERABLES Denisse l Result Performing Organization Address City/[facility]/ZIP Co de Phone Number [facility] [address] [facility]. [address] * (ABNORMAL) Hepatic Function Panel, AM (09/05/2024 7:24 AM EDT) Total Bilirubin 23.0(H) 0.0 - 1.5 mg/dL 09/05/2024 8:25 AM EDT [facility] Bilirubin, Direct 15.57(H) 0.00 - 0.40 mg/dL 09/05/2024 8:25 AM EDT [facility] AST 41(H) 13 - 39 U/L 09/05/2024 8:25 AM EDT [facility] ALT 28 7 - 52 U/L 09/05/2024 8:25 AM EDT [facility] Alkaline Phosphatase 89 36 - 125 U/L 09/05/2024 8:25 AM EDT [facility] Total Protein 4.3(L) 6.4 - 8.9 g/dL 09/05/2024 8:25 AM EDT [facility] Albumin 3.3(L) 3.5 - 5.7 g/dL 09/05/2024 8:25 AM EDT [facility] Bilirubin, Indirect 7.43(H) 0.00 - 1.10 mg/dL 09/05/2024 8:25 AM EDT [facility] Plasma 09/05/2024 7:24 AM EDT 09/05/2024 7:38 AM EDT Kiet Ramirez MD LAB BLOOD ORDERABLES Denisse l Result Performing Organization Address City/[facility]/ZIP Co de Phone Number [facility] [address] * Phosphorus, AM (09/05/2024 7:24 AM EDT) Phosphorus 2.1 2.1 - 4.7 mg/dL 09/05/2024 8:25 AM EDT [facility] Plasma 09/05/2024 7:24 AM EDT 09/05/2024 7:38 AM EDT Kiet Ramirez MD LAB BLOOD ORDERABLES Denisse l Result Performing Organization Address City/[facility] Co de Phone Number [facility] [address] * Magnesium, AM (09/05/2024 7:24 AM EDT) Magnesium 2.0 1.5 - 2.5 mg/dL 09/05/2024 8:25 AM EDT [facility] Plasma 09/05/2024 7:24 AM EDT 09/05/2024 7:38 AM EDT Kiet Ramirez MD LAB BLOOD ORDERABLES Denisse l Result Performing Organization Address [facility] de Phone Number [facility] [address] * (ABNORMAL) Basic Metabolic panel, AM (09/05/2024 7:24 AM EDT) Sodium 134 133 - 146 mmol/L 09/05/2024 8:25 AM EDT [facility] Potassium 3.6 3.5 - 5.3 mmol/L 09/05/2024 8:25 AM EDT [facility] Chloride 107 98 - 110 mmol/L 09/05/2024 8:25 AM EDT [facility] CO2 19(L) 21 - 33 mmol/L 09/05/2024 8:25 AM EDT [facility] Anion Gap 8 3 - 16 mmol/L 09/05/2024 8:25 AM EDT [facility] BUN 42(H) 7 - 25 mg/dL 09/05/2024 8:25 AM EDT [facility] Creatinine 2.92(H) 0.60 - 1.30 mg/dL 09/05/2024 8:25 AM EDT [facility] Glucose 108(H) 70 - 100 mg/dL 09/05/2024 8:25 AM EDT [facility] Calcium 8.6 8.6 - 10.3 mg/dL 09/05/2024 8:25 AM EDT [facility] Osmolality, Calculated 289 278 - 305 mOsm/kg 09/05/2024 8:25 AM EDT [facility] EGFR 27 09/05/2024 8:25 AM EDT [facility] Comment:As of 2021, the estimated [...] MD LAB BLOOD ORDERABLES Denisse valle Result [facility] [address] * (ABNORMAL) CBC, AM (09/05/2024 7:24 AM EDT) WBC 4.6 3.8 - 10.8 10E3/uL 09/05/2024 8:04 AM EDT [facility] RBC 2.11(L) 4.20 - 5.80 10E6/uL 09/05/2024 8:04 AM EDT [facility] Hemoglobin 7.6(L) 13.2 - 17.1 g/dL 09/05/2024 8:04 AM EDT [facility] Hematocrit 21.1(L) 38.5 - 50.0 % 09/05/2024 8:04 AM EDT [facility] MCV 99.7 80.0 - 100.0 fL 09/05/2024 8:04 AM EDT [facility] MCH 35.9(H) 27.0 - 33.0 pg 09/05/2024 8:04 AM EDT [facility] MCHC 36.0 32.0 - 36.0 g/dL 09/05/2024 8:04 AM EDT [facility] RDW 22.8(H) 11.0 - 15.0 % 09/05/2024 8:04 AM EDT [facility] Platelets 37(L) 140 - 400 10E3/uL 09/05/2024 8:04 AM EDT [facility] Comment: CNV Specimen checked for clots. None detected. MPV 9.0 7.5 - 11.5 fL 09/05/2024 8:04 AM EDT [facility] Whole Blood 09/05/2024 7:24 AM EDT 09/05/2024 7:38 AM EDT Kiet Ramirez MD LAB BLOOD ORDERABLES Denisse l Result [facility] [address] [place] [address], [facility] * ECG 12 lead (MUSE) (09/05/2024 4:57 AM EDT) 09/05/2024 4:57 AM EDT Narrative MUSE - 09/06/2024 7:31 AM EDT Ventricular Rate: 78 BPM Atrial Rate: 78 BPM P-R Interval: 196 ms QRS Duration: 100 ms QT: 362 ms QTc: 412 ms P Ladora: 69 degrees R Ladora: -23 degrees T Ladora: 10 degrees Diagnosis Line: NORMAL SINUS RHYTHM ^ NONSPECIFIC T WAVE CHANGE ^ ABNORMAL ECG ^ ^ Confirmed by MD DELPHINE, FLOYD ([id number]) on 09/06/2024 7:31:28 AM Kathie Sanchez MD ECG ORDERABLES Final Result [...] - 2.2 mmol/L 09/04/2024 5:27 PM EDT [facility] Plasma 09/04/2024 4:21 PM EDT 09/04/2024 4:30 PM EDT Kiet Ramirez MD LAB BLOOD ORDERABLES Denisse l Result [facility] [address] [facility]. [address] * Magnesium (09/04/2024 4:21 PM EDT) Magnesium 2.4 1.5 - 2.5 mg/dL 09/04/2024 4:47 PM EDT [facility] Plasma 09/04/2024 4:21 PM EDT 09/04/2024 4:24 PM EDT Kiet Ramirez MD LAB BLOOD ORDERABLES Denisse l Result [facility] [address] [facility] * (ABNORMAL) Basic Metabolic Panel (09/04/2024 4:21 PM EDT) Sodium 134 133 - 146 mmol/L 09/04/2024 4:47 PM EDT [facility] Potassium 3.5 3.5 - 5.3 mmol/L 09/04/2024 4:47 PM EDT [facility] Chloride 104 98 - 110 mmol/L 09/04/2024 4:47 PM EDT [facility] CO2 20(L) 21 - 33 mmol/L 09/04/2024 4:47 PM EDT [facility] Anion Gap 10 3 - 16 mmol/L 09/04/2024 4:47 PM EDT [facility] BUN 43(H) 7 - 25 mg/dL 09/04/2024 4:47 PM EDT [facility] Creatinine 3.31(H) 0.60 - 1.30 mg/dL 09/04/2024 4:47 PM EDT [facility] Glucose 142(H) 70 - 100 mg/dL 09/04/2024 4:47 PM EDT [facility] Calcium 9.1 8.6 - 10.3 mg/dL 09/04/2024 4:47 PM EDT [facility] Osmolality, Calculated 291 278 - 305 mOsm/kg 09/04/2024 4:47 PM EDT [facility] EGFR 23 09/04/2024 4:47 PM EDT [facility] Comment:As of 2021, the estimated [...] MD LAB BLOOD ORDERABLES Denisse l Result [facility] [address] [place] [address], [facility] * IR Paracentesis incl imaging [...] proceed with D/T paracentesis Shelia Logan CNP, Tanker [employer] Procedure and Findings: The procedure was performed [...] time ultrasound guidance, a 10 cm, 5-F [employer] catheter was placed into the right [...] Will proceed withD/T paracentesis Shelia Logan CNP, Tanker Driver Procedure and Findings: The procedure was performed [...] time ultrasound guidance, a 10 cm, 5-F [employer] catheterwas placed into the right lower [...] 3:28 PM EDT us Kiet Ramirez MD IMG IR ORDERABLES Final R esult * Fluid Creatinine (09/04/2024 11:01 AM EDT) Creat, Fluid 3.17 mg/dL 09/04/2024 6:15 PM EDT [facility] Comment:Reference range not established for this test. Abdominal Fluid ABDOMEN / Unknown 025 11:01 AM EDT 09/04/2024 5:25 PM EDT Narrative [facility] - 09/04/2024 6:15 PM EDT This assay has been modified from the linotypist's specifications and has been validated with performance characteristics determined by [facility] in accordance with federal regulations [...] OR DERABLES Final Result Performing Organization Address [facility] Co de Phone Number [facility] [address] [facility]. [address] * Albumin, fluid (09/04/2024 11:01 AM EDT) Albumin, Fluid <1.5 g/dL 09/04/2024 6:15 PM EDT [facility] Comment:Reference range not established for this test. Abdominal Fluid ABDOMEN / Unknown 025 11:01 AM EDT 09/04/2024 5:25 PM EDT Narrative [facility] - 09/04/2024 6:15 PM EDT This assay has been modified from the linotypist's specifications and has been validated with performance characteristics determined by [facility] in accordance with federal regulations [...] OR DERABLES Final Result Performing Organization Address [facility] de Phone Number [facility] [address] [facility]. [address] * Protein, Body fluid (09/04/2024 11:01 AM EDT) Protein, Fluid <3.0 g/dL 09/04/2024 6:15 PM EDT [facility] Comment:Reference range not established for this test. Ascitic Fluid ABDOMEN / Unknown 11:01 AM EDT 09/04/2024 5:25 PM EDT Narrative [facility] - 09/04/2024 6:15 PM EDT This assay has been modified from the linotypist's specifications and has been validated with performance characteristics determined by [facility] in accordance with federal regulations [...] OR DERABLES Final Result Performing Organization Address City/[facility]/ZIP Co de Phone Number [facility] [address] [place] [address]. [address] * Body Fluid Culture plus Stain (09/04/2024 11:01 AM EDT) Gram Stain Result Cytospin Results: [facility] Gram Stain Result Polymorphonuclear Leukocytes Seen; [facility] Gram Stain Result No Organisms Seen; [facility] Culture Result No Growth After 5 Days [facility] Fluid ABDOMEN / Unknown 09/04/2024 11:01 AM EDT 09/04/2024 5:25 PM EDT Kiet Ramirez MD MICROBIOLOGY - GENERAL OR DERABLES Final Result Performing Organization Address [facility] Co de Phone Number [facility] [address] [facility]. [address] * (ABNORMAL) Body fluid cell count (09/04/2024 11:01 AM EDT) Color, Fluid Yellow(A) Colorless, Pale Yellow 09/04/2024 6:54 PM EDT [facility] Clarity, Fluid Hazy 09/04/2024 6:54 PM EDT [facility] Neutrophil %, Fluid 85 % 09/04/2024 6:54 PM EDT [facility] Lymphocytes %, Fluid 3 % 09/04/2024 6:54 PM EDT [facility] Macrophage %, Fluid 12 % 09/04/2024 6:54 PM EDT [facility] RBC, Fluid 840 /uL 09/04/2024 6:54 PM EDT [facility] Total Nucleated Cells, Fluid 2,276 /uL 09/04/2024 6:54 PM EDT [facility] Comment:Total Nucleated Cell s represent WBCs and other nucleated cells in the fluid such as lining cells. Ascitic Fluid ABDOMEN / Unknown 11:01 AM EDT 09/04/2024 5:25 PM EDT Kiet Ramirez MD BODY FLUIDS AND STOOLS OR DERABLES Final Result Performing Organization Address [facility] Co de Phone Number [facility] [address] [facility] * AFP Tumor Marker (09/04/2024 10:32 AM EDT) Pathologist [facility] AFP-Tumor Marker 1.9 0.0 - 9.0 ng/mL 09/04/2024 2:53 PM EDT [facility] Serum 09/04/2024 10:3 2 AM EDT 09/04/2024 2:35 PM EDT Narrative [facility] - 09/04/2024 2:53 PM EDT The testing method for AFP is a chemiluminescent immunoassay manufactured by [employer] Concentrations of AFP obtained by different assay methods or kits may vary and cannot be used interchangeably. AFP results cannot be interpreted as absolute evidence of the presence or absence of malignant disease. Kiet Ramirez MD LAB BLOOD ORDERABLES Denisse l Result [facility] [address] [facility]. [address] * Lipase (09/04/2024 5:22 AM EDT) Lipase 40 4 - 82 U/L 09/04/2024 11:41 AM EDT [facility] Plasma 09/04/2024 5:22 AM EDT 09/04/2024 11:23 AM EDT Kiet Ramirez MD LAB BLOOD ORDERABLES Denisse l Result Performing Organization Address [facility] Co de Phone Number [facility] [address] [facility] * Calcium Free, Serum (09/04/2024 5:22 AM EDT) Free Calcium, Ser 4.93 4.40 - 5.40 mg/dL 09/04/2024 5:44 AM EDT [facility] Comment:Free calcium levels vary inversely with pH by approximately 5% for each 0.1 unit of pH change. Assay results have been normalized to pH = 7.40. Serum 09/04/2024 5:22 AM EDT 09/04/2024 5:27 AM EDT Narrative [facility] - 09/04/2024 5:44 AM EDT This test has been developed and its performance characteristics determined by [facility] which is certified under the [...] ORDERABLES Denisse l Result Performing Organization Address [facility] Co de Phone Number [facility] [address] [facility] * (ABNORMAL) Protime-INR, AM (09/04/2024 5:22 AM EDT) Protime 32.0(H) 12.1 - 15.1 seconds 09/04/2024 6:03 AM EDT [facility] INR 3.0(H) 0.9 - 1.1 09/04/2024 6:03 AM EDT [facility] Comment: RECOMMENDED THERAPEUTIC RANGES USING INR : Stable oral anticoagulant therapy: 2.0 - 3.0 Mechanical prosthetic heart valve: 2.5 - 3.5 Recurrent acute myocardial infarction: 2.5 - 3.5 Plasma 09/04/2024 5:22 AM EDT 09/04/2024 5:38 AM EDT us Kiet Ramirez MD LAB BLOOD ORDERABLES Denisse l Result Performing Organization Address [facility] Co de Phone Number [facility] [address] [facility]. [address] * Phosphorus, AM (09/04/2024 5:22 AM EDT) Phosphorus 2.2 2.1 - 4.7 mg/dL 09/04/2024 6:39 AM EDT [facility] Plasma 09/04/2024 5:22 AM EDT 09/04/2024 5:27 AM EDT us Kiet Ramirez MD LAB BLOOD ORDERABLES Denisse l Result Performing Organization Address [facility] Co de Phone Number [facility] [address] [facility] * Magnesium, AM (09/04/2024 5:22 AM EDT) Magnesium 2.4 1.5 - 2.5 mg/dL 09/04/2024 6:39 AM EDT [facility] Plasma 09/04/2024 5:22 AM EDT 09/04/2024 5:27 AM EDT Kiet Ramirez MD LAB BLOOD ORDERABLES Denisse l Result Performing Organization Address [facility] Co de Phone Number [facility] [address] [facility]. [address] * (ABNORMAL) Hepatic Function Panel, AM (09/04/2024 5:22 AM EDT) Total Bilirubin 25.5(H) 0.0 - 1.5 mg/dL 09/04/2024 6:39 AM EDT [facility] AST 43(H) 13 - 39 U/L 09/04/2024 6:39 AM EDT [facility] ALT 30 7 - 52 U/L 09/04/2024 6:39 AM EDT [facility] Alkaline Phosphatase 75 36 - 125 U/L 09/04/2024 6:39 AM EDT [facility] Total Protein 4.6(L) 6.4 - 8.9 g/dL 09/04/2024 6:39 AM EDT [facility] Albumin 3.2(L) 3.5 - 5.7 g/dL 09/04/2024 6:39 AM EDT [facility] Bilirubin, Direct 17.39(H) 0.00 - 0.40 mg/dL 09/04/2024 8:24 AM EDT [facility] Bilirubin, Indirect 8.11(H) 0.00 - 1.10 mg/dL 09/04/2024 8:24 AM EDT [facility] Plasma 09/04/2024 5:22 AM EDT 09/04/2024 5:27 AM EDT Kiet Ramirez MD LAB BLOOD ORDERABLES Denisse valle Result [facility] [address] [place] [address], [facility] * (ABNORMAL) Basic Metabolic panel, AM (09/04/2024 5:22 AM EDT) Sodium 132(L) 133 - 146 mmol/L 09/04/2024 5:56 AM EDT [facility] Potassium 3.7 3.5 - 5.3 mmol/L 09/04/2024 5:56 AM EDT [facility] Chloride 103 98 - 110 mmol/L 09/04/2024 5:56 AM EDT [facility] CO2 18(L) 21 - 33 mmol/L 09/04/2024 5:56 AM EDT [facility] Anion Gap 11 3 - 16 mmol/L 09/04/2024 5:56 AM EDT [facility] BUN 41(H) 7 - 25 mg/dL 09/04/2024 5:56 AM EDT [facility] Creatinine 3.21(H) 0.60 - 1.30 mg/dL 09/04/2024 5:56 AM EDT [facility] Glucose 162(H) 70 - 100 mg/dL 09/04/2024 5:56 AM EDT [facility] Calcium 8.5(L) 8.6 - 10.3 mg/dL 09/04/2024 5:56 AM EDT [facility] Osmolality, Calculated 288 278 - 305 mOsm/kg 09/04/2024 5:56 AM EDT [facility] EGFR 24 09/04/2024 5:56 AM EDT [facility] Comment:As of 2021, the estimated [...] MD LAB BLOOD ORDERABLES Denisse valle Result [facility] [address] [id number] * (ABNORMAL) CBC, AM (09/04/2024 5:22 AM EDT) WBC 9.6 3.8 - 10.8 10E3/uL 09/04/2024 5:50 AM EDT [facility] RBC 2.35(L) 4.20 - 5.80 10E6/uL 09/04/2024 5:50 AM EDT [facility] Hemoglobin 8.5(L) 13.2 - 17.1 g/dL 09/04/2024 5:50 AM EDT [facility] Hematocrit 23.1(L) 38.5 - 50.0 % 09/04/2024 5:50 AM EDT [facility] MCV 98.6 80.0 - 100.0 fL 09/04/2024 5:50 AM EDT [facility] MCH 36.3(H) 27.0 - 33.0 pg 09/04/2024 5:50 AM EDT [facility] MCHC 36.8(H) 32.0 - 36.0 g/dL 09/04/2024 5:50 AM EDT [facility] RDW 23.1(H) 11.0 - 15.0 % 09/04/2024 5:50 AM EDT [facility] Platelets 41(L) 140 - 400 10E3/uL 09/04/2024 5:50 AM EDT [facility] Comment: CNV Specimen checked for clots. None detected. MPV 9.5 7.5 - 11.5 fL 09/04/2024 5:50 AM EDT [facility] Whole Blood 09/04/2024 5:22 AM EDT 09/04/2024 5:38 AM EDT us Kiet Ramirez MD LAB BLOOD ORDERABLES Denisse l Result [facility] [address] * Magnesium (09/04/2024 2:20 AM EDT) Pathologist [facility] Magnesium 2.5 1.5 - 2.5 mg/dL 09/04/2024 2:54 AM EDT [facility] Plasma 09/04/2024 2:20 AM EDT 09/04/2024 2:39 AM EDT Kiet Ramirez MD LAB BLOOD ORDERABLES Denisse l Result [facility] [address] * (ABNORMAL) Basic Metabolic Panel (09/04/2024 2:20 AM EDT) Sodium 133 133 - 146 mmol/L 09/04/2024 2:54 AM EDT [facility] Potassium 3.8 3.5 - 5.3 mmol/L 09/04/2024 2:54 AM EDT [facility] Chloride 103 98 - 110 mmol/L 09/04/2024 2:54 AM EDT [facility] CO2 18(L) 21 - 33 mmol/L 09/04/2024 2:54 AM EDT [facility] Anion Gap 12 3 - 16 mmol/L 09/04/2024 2:54 AM EDT [facility] BUN 41(H) 7 - 25 mg/dL 09/04/2024 2:54 AM EDT [facility] Creatinine 3.36(H) 0.60 - 1.30 mg/dL 09/04/2024 2:54 AM EDT [facility] Glucose 145(H) 70 - 100 mg/dL 09/04/2024 2:54 AM EDT [facility] Calcium 9.0 8.6 - 10.3 mg/dL 09/04/2024 2:54 AM EDT [facility] Osmolality, Calculated 289 278 - 305 mOsm/kg 09/04/2024 2:54 AM EDT [facility] EGFR 23 09/04/2024 2:54 AM EDT [facility] Comment:As of 2021, the estimated [...] MD LAB BLOOD ORDERABLES Denisse l Result [facility] [address] [facility]. [address] * Magnesium (09/03/2024 9:50 PM EDT) Magnesium 2.5 1.5 - 2.5 mg/dL 09/03/2024 10:14 PM EDT [facility] Plasma 09/03/2024 9:50 PM EDT 09/03/2024 9:56 PM EDT Kiet Ramirez MD LAB BLOOD ORDERABLES Denisse l Result Performing Organization Address City/[facility]/ZIP Co de Phone Number [facility] [address] [facility]. [address] * (ABNORMAL) Basic Metabolic Panel (09/03/2024 9:50 PM EDT) Sodium 131(L) 133 - 146 mmol/L 09/03/2024 10:14 PM EDT [facility] Potassium 4.2 3.5 - 5.3 mmol/L 09/03/2024 10:14 PM EDT [facility] Chloride 102 98 - 110 mmol/L 09/03/2024 10:14 PM EDT [facility] CO2 17(L) 21 - 33 mmol/L 09/03/2024 10:14 PM EDT [facility] Anion Gap 12 3 - 16 mmol/L 09/03/2024 10:14 PM EDT [facility] BUN 41(H) 7 - 25 mg/dL 09/03/2024 10:14 PM EDT [facility] Creatinine 3.44(H) 0.60 - 1.30 mg/dL 09/03/2024 10:14 PM EDT [facility] Glucose 194(H) 70 - 100 mg/dL 09/03/2024 10:14 PM EDT [facility] Calcium 8.5(L) 8.6 - 10.3 mg/dL 09/03/2024 10:14 PM EDT [facility] Osmolality, Calculated 287 278 - 305 mOsm/kg 09/03/2024 10:14 PM EDT [facility] EGFR 22 09/03/2024 10:14 PM EDT [facility] Comment:As of 2021, the estimated [...] MD LAB BLOOD ORDERABLES Denisse l Result [facility] [address] * (ABNORMAL) Magnesium (09/03/2024 6:16 PM EDT) Magnesium 2.6(H) 1.5 - 2.5 mg/dL 09/03/2024 6:47 PM EDT [facility] Plasma 09/03/2024 6:16 PM EDT 09/03/2024 6:27 PM EDT us Kiet Ramirez MD LAB BLOOD ORDERABLES Denisse l Result [facility] [address] * (ABNORMAL) Basic Metabolic Panel (09/03/2024 6:16 PM EDT) Sodium 132(L) 133 - 146 mmol/L 09/03/2024 6:47 PM EDT [facility] Potassium 4.1 3.5 - 5.3 mmol/L 09/03/2024 6:47 PM EDT [facility] Chloride 100 98 - 110 mmol/L 09/03/2024 6:47 PM EDT [facility] CO2 17(L) 21 - 33 mmol/L 09/03/2024 6:47 PM EDT [facility] Anion Gap 15 3 - 16 mmol/L 09/03/2024 6:47 PM EDT [facility] BUN 40(H) 7 - 25 mg/dL 09/03/2024 6:47 PM EDT [facility] Creatinine 3.44(H) 0.60 - 1.30 mg/dL 09/03/2024 6:47 PM EDT [facility] Glucose 115(H) 70 - 100 mg/dL 09/03/2024 6:47 PM EDT [facility] Calcium 9.0 8.6 - 10.3 mg/dL 09/03/2024 6:47 PM EDT [facility] Osmolality, Calculated 285 278 - 305 mOsm/kg 09/03/2024 6:47 PM EDT [facility] EGFR 22 09/03/2024 6:47 PM EDT [facility] Comment:As of 2021, the estimated [...] MD LAB BLOOD ORDERABLES Denisse l Result [facility] [address] [place] [address], [facility] * (ABNORMAL) Venous Blood Gas, Line/Syringe, STAT (09/03/2024 5:26 PM EDT) PH-Line Draw 7.32 7.32 - 7.42 09/03/2024 5:40 PM EDT [facility] PCO2-Line Draw 33(L) 41 - 51 mm Hg 09/03/2024 5:40 PM EDT [facility] PO2-Line Draw 32 25 - 40 mm Hg 09/03/2024 5:40 PM EDT [facility] HCO3-Line Draw 18(L) 24 - 28 mmol/L 09/03/2024 5:40 PM EDT [facility] CO2 Content-Line Draw 18(L) 25 - 29 mmol/L 09/03/2024 5:40 PM EDT [facility] Base Excess-Line Draw -8.2(L) -2.0 - 3.0 mmol/L 09/03/2024 5:40 PM EDT [facility] %HBO2-Line Draw 53.4 40.0 - 70.0 % 09/03/2024 5:40 PM EDT [facility] Carboxyhgb-Ludivina e Draw 1.4 % 09/03/2024 5:40 PM EDT [facility] Comment: CARBOXYHEMOGLOBIN (CO) REFERENCE RANGES: Non-Smokers: <2 % Smokers: <8 % TOXIC: >20 % Methemoglobin- Line Draw 0.7 0.0 - 1.5 % 09/03/2024 5:40 PM EDT [facility] Reduced Hemoglobin-Ludivina e Draw 44.5(H) 0.0 - 5.0 % 09/03/2024 5:40 PM EDT [facility] Venous, Line Draw 09/03/2024 5:26 PM EDT 09/03/2024 5:38 PM EDT Kiet Ramirez MD LAB BLOOD ORDERABLES Denisse l Result [facility] [address] [place] [address], [facility] * (ABNORMAL) CBC (09/03/2024 5:26 PM EDT) WBC 9.9 3.8 - 10.8 10E3/uL 09/03/2024 6:28 PM EDT [facility] RBC 2.35(L) 4.20 - 5.80 10E6/uL 09/03/2024 6:28 PM EDT [facility] Hemoglobin 8.4(L) 13.2 - 17.1 g/dL 09/03/2024 6:28 PM EDT [facility] Hematocrit 23.1(L) 38.5 - 50.0 % 09/03/2024 6:28 PM EDT [facility] MCV 98.3 80.0 - 100.0 fL 09/03/2024 6:28 PM EDT [facility] MCH 35.5(H) 27.0 - 33.0 pg 09/03/2024 6:28 PM EDT [facility] MCHC 36.2(H) 32.0 - 36.0 g/dL 09/03/2024 6:28 PM EDT [facility] RDW 22.8(H) 11.0 - 15.0 % 09/03/2024 6:28 PM EDT [facility] Platelets 42(L) 140 - 400 10E3/uL 09/03/2024 6:28 PM EDT [facility] Comment: _Platelets Appear Decreased Slide Reviewed for PLT Clumps. None Seen. Specimen checked for clots. None detected. Platelet Estimate Decreased 09/03/2024 6:28 PM EDT [facility] MPV 8.9 7.5 - 11.5 fL 09/03/2024 6:28 PM EDT [facility] Whole Blood 09/03/2024 5:26 PM EDT 09/03/2024 5:47 PM EDT Narrative [facility] - 09/03/2024 6:28 PM EDT Peripheral blood smear was scanned per review criteria approved by the laboratory biomedical engineering internship. Kiet Ramirez MD LAB BLOOD ORDERABLES Denisse l Result Performing Organization Address [facility]/ZIP Co de Phone Number [facility] [address] [facility]. [address] * MRSA/Staph aureus DNA ??? Diagnostic testing for pneumonia (09/03/2024 3:21 PM EDT) MRSA, PCR Negative Negative 09/03/2024 7:48 PM EDT [facility] Staph Aureus, PCR Negative Negative 09/03/2024 7:48 PM EDT [facility] Comment:Test method is a FDA approved amplified DNA assay. Nares Swab BOTH ANTERIOR NARES / Unknown 09/03/2024 3:21 PM EDT 09/03/2024 4:25 PM EDT Narrative [facility] - 09/03/2024 7:48 PM EDT Diagnosis of MRSA Pneumonia->Yes - Place [id number] (this order) Kiet Ramirez MD MICROBIOLOGY - GENERAL OR DERABLES Final Result Performing Organization Address [facility] Co de Phone Number [facility] [address] * (ABNORMAL) Urine Drug Screen without Confirmation, STAT (09/03/2024 3:21 PM EDT) Amphetamine, 500 ng/mL Cutoff Negative Negative 09/03/2024 4:17 PM EDT [facility] Barbiturates UR, 300 ng/mL Cutoff Negative Negative 09/03/2024 4:17 PM EDT [facility] Buprenorphine, 5 ng/mL Cutoff Negative Negative 09/03/2024 4:17 PM EDT [facility] Benzodiazepines UR, 300 ng/mL Cutoff Negative Negative 09/03/2024 4:17 PM EDT [facility] Cocaine UR, 300 ng/mL Cutoff Negative Negative 09/03/2024 4:17 PM EDT [facility] Methadone, UR, 300 ng/mL Cutoff Negative Negative 09/03/2024 4:17 PM EDT [facility] Opiates UR, 300 ng/mL Cutoff Presumptive Positive(A) Negative 09/03/2024 4:17 PM EDT [facility] Oxycodone, 100 ng/mL Cutoff Negative Negative 09/03/2024 4:17 PM EDT [facility] Tricyclic Antidepressants, 300 ng/mL Cutoff Negative Negative 09/03/2024 4:17 PM EDT [facility] Comment:This test has been d eveloped and its performance characteristics determined by [facility] which is certified under the [...] Cutoff Negative Negative 09/03/2024 4:17 PM EDT [facility] Comment:This is a screening method only and may be associated with false positive and/or false negative results. Results are not definitive without additional confirmatory testing by mass spectrometry. Fentanyl, 2 ng/mL Cutoff Negative Negative 09/03/2024 4:17 PM EDT [facility] Comment:This test has been d eveloped and its performance characteristics determined by [facility] which is certified under the [...] Ramirez MD URINE ORDERABLES Final Re sult [facility] [address] [place] [address], [facility] * (ABNORMAL) Venous Blood Gas, Line/Syringe (09/03/2024 3:21 PM EDT) PH-Line Draw 7.24(L) 7.32 - 7.42 09/03/2024 3:30 PM EDT [facility] PCO2-Line Draw 37(L) 41 - 51 mm Hg 09/03/2024 3:30 PM EDT [facility] PO2-Line Draw 39 25 - 40 mm Hg 09/03/2024 3:30 PM EDT [facility] HCO3-Line Draw 16(L) 24 - 28 mmol/L 09/03/2024 3:30 PM EDT [facility] CO2 Content-Line Draw 17(L) 25 - 29 mmol/L 09/03/2024 3:30 PM EDT [facility] Base Excess-Line Draw -10.6(L) -2.0 - 3.0 mmol/L 09/03/2024 3:30 PM EDT [facility] %HBO2-Line Draw 62.6 40.0 - 70.0 % 09/03/2024 3:30 PM EDT [facility] Carboxyhgb-Ludivina e Draw 1.5 % 09/03/2024 3:30 PM EDT [facility] Comment: CARBOXYHEMOGLOBIN (CO) REFERENCE RANGES: Non-Smokers: <2 % Smokers: <8 % TOXIC: >20 % Methemoglobin- Line Draw 1.0 0.0 - 1.5 % 09/03/2024 3:30 PM EDT [facility] Reduced Hemoglobin-Ludivina e Draw 34.9(H) 0.0 - 5.0 % 09/03/2024 3:30 PM EDT [facility] Venous, Line Draw 09/03/2024 3:21 PM EDT 09/03/2024 3:27 PM EDT Kiet Ramirez MD LAB BLOOD ORDERABLES Denisse l Result Performing Organization Address City/State/[facility] Co de Phone Number [facility] [address] * Urea Nitrogen, Urine (09/03/2024 3:21 PM EDT) Urea Nitrogen, Ur 350 mg/dL 09/03/2024 4:12 PM EDT [facility] Comment:Reference range not established for this test. Urine 09/03/2024 3:21 PM EDT 09/03/2024 3:30 PM EDT us Kiet Ramirez MD URINE ORDERABLES Final Re sult Performing Organization Address [facility] Co de Phone Number [facility] [address] [facility]. [address] * Sodium, Urine, Random (09/03/2024 3:21 PM EDT) Sodium, Ur <10 mmol/L 09/03/2024 4:19 PM EDT [facility] Comment:Reference range not established for this test. Urine 09/03/2024 3:21 PM EDT 09/03/2024 3:30 PM EDT us Kiet Ramirez MD URINE ORDERABLES Final Re sult Performing Organization Address [facility] Co de Phone Number [facility] [address] [facility] * Potassium, Urine, Random (09/03/2024 3:21 PM EDT) Potassium Urine Random 23.0 mmol/L 09/03/2024 4:19 PM EDT [facility] Comment:Reference range not established for this test. Urine 09/03/2024 3:21 PM EDT 09/03/2024 3:30 PM EDT us Kiet Ramirez MD URINE ORDERABLES Final Re sult Performing Organization Address [facility] Co de Phone Number [facility] [address] [facility]. [address] * Creatinine, Urine, Random (09/03/2024 3:21 PM EDT) Creatinine, Urine 127.80 mg/dL 09/03/2024 4:19 PM EDT [facility] Comment:Reference range not established for this test. Urine 09/03/2024 3:21 PM EDT 09/03/2024 3:30 PM EDT us Kiet Ramirez MD URINE ORDERABLES Final Re sult Performing Organization Address [facility]/ZIP Co de Phone Number [facility] [address] [facility]. [address] * Chloride, Urine, Random (09/03/2024 3:21 PM EDT) Chloride, Ur <15 mmol/L 09/03/2024 4:19 PM EDT [facility] Comment:Reference range not established for this test. Urine 09/03/2024 3:21 PM EDT 09/03/2024 3:30 PM EDT Kiet Ramirez MD URINE ORDERABLES Final Re sult Performing Organization Address [facility] Co de Phone Number [facility] [address] [facility]. [address] * Magnesium (09/03/2024 3:21 PM EDT) Magnesium 2.1 1.5 - 2.5 mg/dL 09/03/2024 3:50 PM EDT [facility] Plasma 09/03/2024 3:21 PM EDT 09/03/2024 3:27 PM EDT Kiet Ramirez MD LAB BLOOD ORDERABLES Denisse l Result Performing Organization Address [facility] Co de Phone Number [facility] [address] [facility]. [address] * (ABNORMAL) Basic Metabolic Panel (09/03/2024 3:21 PM EDT) Sodium 133 133 - 146 mmol/L 09/03/2024 3:50 PM EDT [facility] Potassium 2.9(LL) 3.5 - 5.3 mmol/L 09/03/2024 3:50 PM EDT [facility] Comment:Critical Result K:2. 9 Called to and read back by: LENA DON RN at: 09/03/2024 15:50:10 by:CAMILA Chloride 95(L) 98 - 110 mmol/L 09/03/2024 3:50 PM EDT [facility] CO2 15(L) 21 - 33 mmol/L 09/03/2024 3:50 PM EDT [facility] Anion Gap 23(H) 3 - 16 mmol/L 09/03/2024 3:50 PM EDT [facility] BUN 36(H) 7 - 25 mg/dL 09/03/2024 3:50 PM EDT [facility] Creatinine 3.16(H) 0.60 - 1.30 mg/dL 09/03/2024 3:50 PM EDT [facility] Glucose 91 70 - 100 mg/dL 09/03/2024 3:50 PM EDT [facility] Calcium 7.8(L) 8.6 - 10.3 mg/dL 09/03/2024 3:50 PM EDT [facility] Osmolality, Calculated 284 278 - 305 mOsm/kg 09/03/2024 3:50 PM EDT [facility] EGFR 24 09/03/2024 3:50 PM EDT [facility] Comment:As of 2021, the estimated [...] MD LAB BLOOD ORDERABLES Denisse valle Result [facility] [address] [place] [address], [facility] * Ethanol, Serum (09/03/2024 1:43 PM EDT) Ethanol <10 0 - 10 mg/dL 09/03/2024 3:08 PM EDT [facility] Serum 09/03/2024 1:43 PM EDT 09/03/2024 1:47 PM EDT Kiet Ramirez MD LAB BLOOD ORDERABLES Denisse l Result Performing Organization Address City/[facility]/ZIP Co de Phone Number [facility] [address] [place] [address]. [address] * T4, Free (09/03/2024 1:43 PM EDT) Free T4 0.74 0.61 - 1.76 ng/dL 09/03/2024 6:34 PM EDT [facility] Comment:Biotin megadosing (c onsumption >300 mcg/day) may falsely elevate free T4. When indicated, discontinue megadosing for 1 week and repeat testing. Serum 09/03/2024 1:43 PM EDT 09/03/2024 2:17 PM EDT Kiet Ramirez MD LAB BLOOD ORDERABLES Denisse l Result Performing Organization Address [facility] Co de Phone Number [facility] [address] [facility]. [address] * TSH (09/03/2024 1:43 PM EDT) TSH 0.92 0.45 - 4.12 uIU/mL 09/03/2024 6:30 PM EDT [facility] Serum 09/03/2024 1:43 PM EDT 09/03/2024 2:17 PM EDT Kiet Ramirez MD LAB BLOOD ORDERABLES Denisse l Result Performing Organization Address City/[facility]/ZIP Co de Phone Number [facility] [address] [facility]. [address] * Hepatitis B surface antigen (09/03/2024 1:43 PM EDT) Hep B Surface Ag Nonreactive Nonreactive 09/03/2024 3:54 PM EDT [facility] Comment:Health Department no tified in accordance with reportable infectious disease guidelines. Serum 09/03/2024 1:43 PM EDT 09/03/2024 2:17 PM EDT [facility] - 09/03/2024 3:54 PM EDT The result will be immediately released to [facility] when marked final. Do you believe the result release to [facility] should be delayed based on either the Preventing Harm or Privacy exceptions of the Cures Rule?->No Specimen is considered negative for HBsAg. us Kiet Ramirez MD LAB BLOOD ORDERABLES Denisse l Result Performing Organization Address [facility] de Phone Number [facility] [address] * Hepatitis B Core IgM (09/03/2024 1:43 PM EDT) Hep B Core IgM Nonreactive Nonreactive 09/03/2024 3:50 PM EDT [facility] Serum 09/03/2024 1:43 PM EDT 09/03/2024 2:17 PM EDT [facility] - 09/03/2024 3:50 PM EDT The result will be immediately released to [facility] when marked final. Do you believe the result release to [facility] should be delayed based on either the Preventing Harm or Privacy exceptions of the Cures Rule?->No IgM anti-HBc not detected. Does not exclude the possibility of exposure to or infection with HBV. us Kiet Ramirez MD LAB BLOOD ORDERABLES Denisse l Result Performing Organization Address [facility] Co de Phone Number [facility] [address] * Hepatitis A IgM (09/03/2024 1:43 PM EDT) Hep A IgM Nonreactive Nonreactive 09/03/2024 3:49 PM EDT [facility] Serum 09/03/2024 1:43 PM EDT 09/03/2024 2:17 PM EDT Narrative [facility] - 09/03/2024 3:49 PM EDT The result will be immediately released to [facility] when marked final. Do you believe the result release to [facility] should be delayed based on either the Preventing Harm or Privacy exceptions of the Cures Rule?->No IgM anti-HAV not detected. Does not exclude the possibility of exposure to or infection with HAV. Levels of IgM anti-HAV may be below the cut-off in early infection. Kiet Ramirez MD LAB BLOOD ORDERABLES Denisse l Result Performing Organization Address [facility] de Phone Number [facility] [address] [place] [address] * Hepatitis C Antibody (09/03/2024 1:43 PM EDT) HCV Ab Nonreactive Nonreactive 09/03/2024 3:58 PM EDT [facility] Comment:Health Department no tified in accordance with reportable infectious disease guidelines. Serum 09/03/2024 1:43 PM EDT 09/03/2024 2:17 PM EDT [facility] - 09/03/2024 3:58 PM EDT The result will be immediately released to [facility] when marked final. Do you believe the result release to [facility] should be delayed based on either the Preventing Harm or Privacy exceptions of the Cures Rule?->No Antibodies to HCV not detected; does not exclude the possibility of exposure to HCV. Kiet Ramirez MD LAB BLOOD ORDERABLES Denisse l Result Performing Organization Address [facility] Co de Phone Number [facility] [address] * Lactic Acid (09/03/2024 1:43 PM EDT) Lactate 1.7 0.5 - 2.2 mmol/L 09/03/2024 2:25 PM EDT [facility] Plasma 09/03/2024 1:43 PM EDT 09/03/2024 1:52 PM EDT Kiet Ramirez MD LAB BLOOD ORDERABLES Denisse l Result Performing Organization Address City/[facility]/ZIP Co de Phone Number [facility] [address] * Magnesium (09/03/2024 1:43 PM EDT) Magnesium 2.2 1.5 - 2.5 mg/dL 09/03/2024 2:06 PM EDT [facility] Plasma 09/03/2024 1:43 PM EDT 09/03/2024 1:47 PM EDT Kiet Ramirez MD LAB BLOOD ORDERABLES Denisse l Result Performing Organization Address [facility] de Phone Number [facility] [address] * (ABNORMAL) Basic Metabolic Panel (09/03/2024 1:43 PM EDT) Sodium 131(L) 133 - 146 mmol/L 09/03/2024 2:06 PM EDT [facility] Potassium 3.2(L) 3.5 - 5.3 mmol/L 09/03/2024 2:06 PM EDT [facility] Chloride 100 98 - 110 mmol/L 09/03/2024 2:06 PM EDT [facility] CO2 16(L) 21 - 33 mmol/L 09/03/2024 2:06 PM EDT [facility] Anion Gap 15 3 - 16 mmol/L 09/03/2024 2:06 PM EDT [facility] BUN 40(H) 7 - 25 mg/dL 09/03/2024 2:06 PM EDT [facility] Creatinine 3.52(H) 0.60 - 1.30 mg/dL 09/03/2024 2:06 PM EDT [facility] Glucose 86 70 - 100 mg/dL 09/03/2024 2:06 PM EDT [facility] Calcium 8.5(L) 8.6 - 10.3 mg/dL 09/03/2024 2:06 PM EDT [facility] Osmolality, Calculated 281 278 - 305 mOsm/kg 09/03/2024 2:06 PM EDT [facility] EGFR 21 09/03/2024 2:06 PM EDT [facility] Comment:As of 2021, the estimated [...] reported as >90mL/min/1.73m2. Reference: Luis Eduardo C, Talai M, Olivia DC, Emerita ND, Madelyn CA, Felicia ESPINOSA, et al. A Unifying Approach for GFR Estimation: Recommendations of the [employer]F-ASN Task Force on Reassessing the inclusion of Race in Diagnosing Kidney Disease. Am J Kidney Dis. 2020. Plasma 09/03/2024 1:43 PM EDT 09/03/2024 1:47 PM EDT us Kiet Ramirez MD LAB BLOOD ORDERABLES Denisse valle Result [facility] [address] [id number], [facility] * X-ray Portable Chest (09/03/2024 [...] - 4.7 mg/dL 09/03/2024 11:31 AM EDT [facility] Plasma 09/03/2024 10:4 9 AM EDT 09/03/2024 11:02 AM EDT Kiet Ramirez MD LAB BLOOD ORDERABLES Denisse l Result [facility] [id number] [facility] [place] [address], [facility] * Magnesium (09/03/2024 10:49 AM EDT) Magnesium 1.8 1.5 - 2.5 mg/dL 09/03/2024 11:31 AM EDT [facility] Plasma 09/03/2024 10:4 9 AM EDT 09/03/2024 11:02 AM EDT us Kiet Ramirez MD LAB BLOOD ORDERABLES Denisse valle Result [facility] [address] [place] [address], [facility] * (ABNORMAL) Basic metabolic panel (09/03/2024 10:49 AM EDT) Sodium 133 133 - 146 mmol/L 09/03/2024 11:31 AM EDT [facility] Potassium 2.8(LL) 3.5 - 5.3 mmol/L 09/03/2024 11:31 AM EDT [facility] Comment: K CRITICAL VALUE WAS PREVIOUSLY CALLED CRITICAL CALLED TO LENA DON RN Chloride 101 98 - 110 mmol/L 09/03/2024 11:31 AM EDT [facility] CO2 19(L) 21 - 33 mmol/L 09/03/2024 11:31 AM EDT [facility] Anion Gap 13 3 - 16 mmol/L 09/03/2024 11:31 AM EDT [facility] BUN 39(H) 7 - 25 mg/dL 09/03/2024 11:31 AM EDT [facility] Creatinine 3.26(H) 0.60 - 1.30 mg/dL 09/03/2024 11:31 AM EDT [facility] Glucose 84 70 - 100 mg/dL 09/03/2024 11:31 AM EDT [facility] Calcium 8.6 8.6 - 10.3 mg/dL 09/03/2024 11:31 AM EDT [facility] Osmolality, Calculated 285 278 - 305 mOsm/kg 09/03/2024 11:31 AM EDT [facility] EGFR 23 09/03/2024 11:31 AM EDT [facility] Comment:As of 2021, the estimated [...] MD LAB BLOOD ORDERABLES Denisse valle Result [facility] [address] [id number], [facility] * US Abdomen Complete (09/03/2024 [...] EXAM: US ABDOMEN COMPLETE EXAM: US DUPLEX [id number] COMPLETE INDICATION: Evaluate for cholecystitis COMPARISON: 09/03/2024 [...] 0.69-0.74 Left hepatic artery: 0.71-0.72 Procedure Note Simoara Pantoja MD - 09/03/2024 EXAM: US ABDOMEN COMPLETE EXAM: US DUPLEX [id number] COMPLETE INDICATION: Evaluate for cholecystitis COMPARISON: 09/03/2024 [...] arteries and hepatic veins Report Verified by: Sioamra Pantoja MD at 09/03/2024 11:01 AM EDT us Jarrod Alas MD IM US ORDERABLES Final Result * US Duplex Gqe-Swv-Eoeeqtp Comp (09/03/2024 10:30 AM EDT) Anatomical Region [...] EXAM: US ABDOMEN COMPLETE EXAM: US DUPLEX [id number] COMPLETE INDICATION: Evaluate for cholecystitis COMPARISON: 09/03/2024 [...] EXAM: US ABDOMEN COMPLETE EXAM: US DUPLEX [id number] COMPLETE INDICATION: Evaluate for cholecystitis COMPARISON: 09/03/2024 [...] 11:01 AM EDT us Jarrod Alas MD [facility] US ORDERABLES Final Result * (ABNORMAL) Urinalysis, Microscopic (09/03/2024 10:28 AM EDT) Pathologist [facility] RBC, UA 1 0 - 3 /HPF 09/03/2024 11:51 AM EDT [facility] WBC, UA 1 0 - 5 /HPF 09/03/2024 11:51 AM EDT [facility] Squam Epithel, UA <1 0 - 5 /HPF 09/03/2024 11:51 AM EDT [facility] Bacteria, UA Occasional (A) None Seen /HPF 09/03/2024 11:51 AM EDT [facility] Mucus, UA Present(A) None Seen /HPF 09/03/2024 11:51 AM EDT [facility] Urine 09/03/2024 10:2 8 AM EDT 09/03/2024 11:24 AM EDT us Kiet Ramirez MD URINE ORDERABLES Final Re sult [facility] [address] [place] [address], [facility] * (ABNORMAL) Urinalysis-Macroscopic w/Rfx to Microsco (09/03/2024 10:28 AM EDT) Color, UA Yellow Yellow,Straw 09/03/2024 11:51 AM EDT [facility] Clarity, UA Cloudy(A) Clear 09/03/2024 11:51 AM EDT [facility] Specific [place], UA >1.035(H) 1.005 - 1.035 09/03/2024 11:51 AM EDT [facility] pH, UA 6.5 5.0 - 8.0 09/03/2024 11:51 AM EDT [facility] Protein, UA Trace(A) Negative mg/dL 09/03/2024 11:51 AM EDT [facility] Glucose, UA Negative Negative mg/dL 09/03/2024 11:51 AM EDT [facility] Ketones, UA Negative Negative mg/dL 09/03/2024 11:51 AM EDT [facility] Bilirubin, UA Small(A) Negative 09/03/2024 11:51 AM EDT [facility] Blood, UA Negative Negative 09/03/2024 11:51 AM EDT [facility] Nitrite, UA Negative Negative 09/03/2024 11:51 AM EDT [facility] Urobilinogen, UA <2.0 0.2 - 1.9 mg/dL 09/03/2024 11:51 AM EDT [facility] Leukocyte Esterase, UA Negative Negative 09/03/2024 11:51 AM EDT [facility] Urine 09/03/2024 10:2 8 AM EDT 09/03/2024 10:55 AM EDT Kiet Ramirez MD URINE ORDERABLES Final Re sult Performing Organization Address City/State/[facility] Co de Phone Number [facility] [address] * #1 Blood culture-Peripheral site 1 (09/03/2024 8:10 AM EDT) Culture Result No Growth After 5 Days [facility] Blood BLOOD SPECIMEN / Unknown 09/03/2024 8:10 AM EDT 09/03/2024 8:57 AM EDT Narrative [facility] - 09/08/2024 9:00 AM EDT One aerobic bottle was received Suboptimal volume of blood received. Interpret results with caution. Jarrod Alas MD MICROBIOLOGY - GENERAL ORDERAB LES Final Result Performing Organization Address [facility] Co de Phone Number [facility] [address] * #2 Blood culture-Peripheral site 2 (09/03/2024 7:55 AM EDT) Pathologist [facility] Culture Result No Growth After 5 Days [facility] Blood BLOOD SPECIMEN / Unknown 09/03/2024 7:55 AM EDT 09/03/2024 8:40 AM EDT Narrative [facility] - 09/08/2024 8:45 AM EDT Suboptimal volume of blood received. Interpret results with caution. Jarrod Alas MD MICROBIOLOGY - GENERAL ORDERAB LES Final Result Performing Organization Address [facility] Co de Phone Number [facility] [address] [facility] * Lactic acid, venous (09/03/2024 7:55 AM EDT) [facility] Lactate, Shakeel 1.8 0.5 - 2.2 mmol/L 09/03/2024 8:02 AM EDT [facility] Whole Blood VENOUS STRUCTURE / Unknown 09/03/2024 7:55 AM EDT 09/03/2024 7:59 AM EDT Jarrod Alas MD LAB BLOOD ORDERABLES Final Res ult Performing Organization Address City/[facility]/ZIP Co de Phone Number [facility] [address] [place] [facility]. [address] * High Sensitivity Troponin (60min) (09/03/2024 7:18 AM EDT) [facility] High Sensitivity Troponin 14 0 - 20 ng/L 09/03/2024 7:49 AM EDT [facility] Serum 09/03/2024 7:18 AM EDT 09/03/2024 7:18 AM EDT Narrative [facility] - 09/03/2024 7:49 AM EDT Please draw 60min after time that first troponin is drawn. Rommel Mccoy MD LAB BLOOD ORDERABLES Final Resul t [facility] [address] [place] [address], [facility] * Paracentesis (09/03/2024 7:01 AM [...] infection and pain Alternatives discussed: No treatment [place] protocol: Procedure explained and questions answered to [...] adhesive bandage Post-procedure details: Procedure completion: Tolerated Ana Maria Ramey MD PROCEDURE/MINOR SURGICAL ORDERA BLES Final Result * Albumin, fluid (09/03/2024 6:46 AM EDT) Albumin, Fluid <1.5 g/dL 09/03/2024 8:22 AM EDT [facility] Comment:Reference range not established for this test. Abdominal Fluid ABDOMEN / Unknown 025 6:46 AM EDT 09/03/2024 6:59 AM EDT Narrative [facility] - 09/03/2024 8:22 AM EDT This assay has been modified from the linotypist's specifications and has been validated with performance characteristics determined by [facility] in accordance with federal regulations [...] ORDERABLE S Final Result Performing Organization Address [facility] Co de Phone Number [facility] [address] [facility]. [address] * Protein, body fluid (09/03/2024 6:46 AM EDT) Protein, Fluid <3.0 g/dL 09/03/2024 8:22 AM EDT [facility] Comment:Reference range not established for this test. Paracentesis Fluid ABDOMEN / Unknown 08/13 6:46 AM EDT 09/03/2024 6:59 AM EDT [facility] - 09/03/2024 8:22 AM EDT This assay has been modified from the linotypist's specifications and has been validated with performance characteristics determined by [facility] in accordance with federal regulations [...] ORDERABLE S Final Result Performing Organization Address [facility] Co de Phone Number [facility] [address] [facility]. [address] * Body fluid cell count (09/03/2024 6:46 AM EDT) Color, Fluid Yellow 09/03/2024 10:15 AM EDT [facility] Clarity, Fluid Hazy 09/03/2024 10:15 AM EDT [facility] Neutrophil %, Fluid 20 % 09/03/2024 10:15 AM EDT [facility] Lymphocytes %, Fluid 20 % 09/03/2024 10:15 AM EDT [facility] Mesothelial %, Fluid 40 % 09/03/2024 10:15 AM EDT [facility] Macrophage %, Fluid 20 % 09/03/2024 10:15 AM EDT [facility] RBC, Fluid 3,380 /uL 09/03/2024 10:15 AM EDT [facility] Total Nucleated Cells, Fluid 9 /uL 09/03/2024 10:15 AM EDT [facility] Comment: No abnormal cells are [...] ORDERABLE S Final Result Performing Organization Address City/[facility]/ZIP Co de Phone Number [facility] [address] * Body Fluid Culture plus Stain (09/03/2024 6:46 AM EDT) Gram Stain Result Cytospin Results: [facility] Gram Stain Result No Polymorphonuclear Leukocytes Seen; [facility] Gram Stain Result No Organisms Seen; [facility] Culture Result No Growth After 5 Days [facility] Paracentesis Fluid ABDOMEN / Unknown 08/13 6:46 AM EDT 09/03/2024 6:59 AM EDT us Rommel Mccoy MD MICROBIOLOGY - GENERAL ORDERABLE S Final Result [facility] [address] * X-ray Portable Chest (09/03/2024 6:06 AM [...] Veronica MD at 09/03/2024 6:25 AM EDT us Rommel Mccoy MD IMG DIAGNOSTIC IMAGING ORDERABLE [...] - 15.1 seconds 09/03/2024 6:08 AM EDT [facility] INR 2.0(H) 0.9 - 1.1 09/03/2024 6:08 AM EDT [facility] Comment: RECOMMENDED THERAPEUTIC RANGES USING INR : Stable oral anticoagulant therapy: 2.0 - 3.0 Mechanical prosthetic heart valve: 2.5 - 3.5 Recurrent acute myocardial infarction: 2.5 - 3.5 Plasma 09/03/2024 5:35 AM EDT 09/03/2024 5:51 AM EDT us oRmmel Mccoy MD LAB BLOOD ORDERABLES Final Resul t Performing Organization Address [facility] Co de Phone Number [facility] [address] [facility] * ECG for indication of dyspnea (09/03/2024 5:32 AM EDT) 09/03/2024 5:32 AM EDT Narrative MUSE - 09/03/2024 8:00 AM EDT Ventricular Rate: 90 BPM Atrial Rate: 90 BPM P-R Interval: 190 ms QRS Duration: 104 ms QT: 456 ms QTc: 557 ms P [place]: 76 degrees R [place]: -37 degrees T [place]: 16 degrees Diagnosis Line: INTERPRETATION NOT AVAILABLE--ECG READ IN ER ^ Reconfirmed by PHYSICIAN, ER ([id number]), non linear editor Tonya BUTLER ([id number]) on 09/03/2024 8:00:24 AM us Rommel Mccoy MD ECG ORDERABLES Edited Result - Final Performing Organization Address City/[facility]/ZIP Co de Phone Number MUSE * High Sensitivity Troponin (09/03/2024 5:29 AM EDT) Pathologist [facility] High Sensitivity Troponin 16 0 - 20 ng/L 09/03/2024 6:02 AM EDT [facility] Serum 09/03/2024 5:29 AM EDT 09/03/2024 5:39 AM EDT us Rommel Mccoy MD LAB BLOOD ORDERABLES Final Resul t Performing Organization Address City/[facility]/ZIP Co de Phone Number [facility] [address] * Magnesium (09/03/2024 5:29 AM EDT) Magnesium 2.0 1.5 - 2.5 mg/dL 09/03/2024 6:14 AM EDT [facility] Plasma 09/03/2024 5:29 AM EDT 09/03/2024 5:39 AM EDT us Rommel Mccoy MD LAB BLOOD ORDERABLES Final Resul t Performing Organization Address City/[facility]/ZIP Co de Phone Number [facility] [address] [facility]. [address] * Lipase (09/03/2024 5:29 AM EDT) Lipase 40 4 - 82 U/L 09/03/2024 6:1 4 AM EDT [facility] Plasma 09/03/2024 5:29 AM EDT 09/03/2024 5:39 AM EDT us Rommel Mccoy MD LAB BLOOD ORDERABLES Final Resul t Performing Organization Address [facility] de Phone Number [facility] [address] [place] [address]. [address] * (ABNORMAL) Hepatic Function Panel (09/03/2024 5:29 AM EDT) Total Bilirubin 32.5(H) 0.0 - 1.5 mg/dL 09/03/2024 6:14 AM EDT [facility] Bilirubin, Direct 19.8(H) 0.0 - 0.4 mg/dL 09/03/2024 6:14 AM EDT [facility] AST 73(H) 13 - 39 U/L 09/03/2024 6:14 AM EDT [facility] ALT 45 7 - 52 U/L 09/03/2024 6:14 AM EDT [facility] Alkaline Phosphatase 139(H) 36 - 125 U/L 09/03/2024 6:14 AM EDT [facility] Total Protein 5.5(L) 6.4 - 8.9 g/dL 09/03/2024 6:14 AM EDT [facility] Albumin 3.4(L) 3.5 - 5.7 g/dL 09/03/2024 6:14 AM EDT [facility] Bilirubin, Indirect 12.7(H) 0.0 - 1.1 mg/dL 09/03/2024 6:14 AM EDT [facility] Plasma 09/03/2024 5:29 AM EDT 09/03/2024 5:39 AM EDT us Rommel Mccoy MD LAB BLOOD ORDERABLES Final Resul t [facility] [address] [place] [address], [facility] * (ABNORMAL) Differential (09/03/2024 5:29 AM EDT) Differential Comments See Note 09/03/2024 7:13 AM EDT [facility] Comment:Acanthocytes Present Scan Result PERFORMED 09/03/2024 7:13 AM EDT [facility] Neutrophils Relative 84.2(H) 40.0 - 80.0 % 09/03/2024 7:13 AM EDT [facility] Lymphocytes Relative 7.9(L) 15.0 - 45.0 % 09/03/2024 7:13 AM EDT [facility] Monocytes Relative 5.7 0.0 - 12.0 % 09/03/2024 7:13 AM EDT [facility] Eosinophils Relative 1.9 0.0 - 8.0 % 09/03/2024 7:13 AM EDT [facility] Basophils Relative 0.3 0.0 - 1.0 % 09/03/2024 7:13 AM EDT [facility] nRBC 0 0 - 0 /100 WBC 09/03/2024 7:13 AM EDT [facility] Neutrophils Absolute 9,094(H) 1,520 - 8,640 /uL 09/03/2024 7:13 AM EDT [facility] Lymphocytes Absolute 853 570 - 4,860 /uL 09/03/2024 7:13 AM EDT [facility] Monocytes Absolute 616 0 - 1,296 /uL 09/03/2024 7:13 AM EDT [facility] Eosinophils Absolute 205 0 - 864 /uL 09/03/2024 7:13 AM EDT [facility] Basophils Absolute 32 0 - 108 /uL 09/03/2024 7:13 AM EDT [facility] PLT Morphology Platelet morphology appears normal 09/03/2024 7:13 AM EDT [facility] Whole Blood 09/03/2024 5:29 AM EDT 09/03/2024 5:51 AM EDT us Rommel Mccoy MD LAB BLOOD ORDERABLES Final Resul t [facility] [address] [place] [address], [facility] * (ABNORMAL) CBC (09/03/2024 5:29 AM EDT) WBC 10.8 3.8 - 10.8 10E3/uL 09/03/2024 7:13 AM EDT [facility] RBC 3.35(L) 4.20 - 5.80 10E6/uL 09/03/2024 7:13 AM EDT [facility] Hemoglobin 11.9(L) 13.2 - 17.1 g/dL 09/03/2024 7:13 AM EDT [facility] Hematocrit 33.0(L) 38.5 - 50.0 % 09/03/2024 7:13 AM EDT [facility] MCV 98.6 80.0 - 100.0 fL 09/03/2024 7:13 AM EDT [facility] MCH 35.6(H) 27.0 - 33.0 pg 09/03/2024 7:13 AM EDT [facility] MCHC 36.2(H) 32.0 - 36.0 g/dL 09/03/2024 7:13 AM EDT [facility] RDW 22.8(H) 11.0 - 15.0 % 09/03/2024 7:13 AM EDT [facility] Platelets 71(L) 140 - 400 10E3/uL 09/03/2024 7:13 AM EDT [facility] Comment: _Platelet Morphology Normal Specimen checked for clots. None detected. Slide Reviewed for PLT Clumps. None Seen. _Platelets Appear Decreased Platelet Estimate Decreased 09/03/2024 7:13 AM EDT [facility] MPV 9.3 7.5 - 11.5 fL 09/03/2024 7:13 AM EDT [facility] Whole Blood 09/03/2024 5:29 AM EDT 09/03/2024 5:51 AM EDT Narrative [facility] - 09/03/2024 7:13 AM EDT Peripheral blood smear was scanned per review criteria approved by the laboratory biomedical engineering internship. us Rommel Mccoy MD LAB BLOOD ORDERABLES Final Resul t [facility] [address] [place] [address], [facility] * (ABNORMAL) Basic metabolic panel (09/03/2024 5:29 AM EDT) Sodium 133 133 - 146 mmol/L 09/03/2024 6:14 AM EDT [facility] Potassium 2.6(LL) 3.5 - 5.3 mmol/L 09/03/2024 6:14 AM EDT [facility] Comment:Critical Result K:2. 6 Called to and read back by: SIMEON HANSEN RN at: 09/03/2024 06:14:37 by:KEVIN Chloride 100 98 - 110 mmol/L 09/03/2024 6:14 AM EDT [facility] CO2 20(L) 21 - 33 mmol/L 09/03/2024 6:14 AM EDT [facility] Anion Gap 13 3 - 16 mmol/L 09/03/2024 6:14 AM EDT [facility] BUN 38(H) 7 - 25 mg/dL 09/03/2024 6:14 AM EDT [facility] Creatinine 3.01(H) 0.60 - 1.30 mg/dL 09/03/2024 6:14 AM EDT [facility] Glucose 133(H) 70 - 100 mg/dL 09/03/2024 6:14 AM EDT [facility] Calcium 8.9 8.6 - 10.3 mg/dL 09/03/2024 6:14 AM EDT [facility] Osmolality, Calculated 287 278 - 305 mOsm/kg 09/03/2024 6:14 AM EDT [facility] EGFR 26 09/03/2024 6:14 AM EDT [facility] Comment:As of 2021, [...] 5:29 AM EDT 09/03/2024 5:39 AM EDT Rommel Mccoy MD LAB BLOOD ORDERABLES Final Resul t Performing Organization Address City/[facility]/ZIP Co de Phone Number [facility] [address] * (ABNORMAL) Ammonia (09/03/2024 5:25 AM EDT) Ammonia 166(H) 27 - 90 ug/dL 09/03/2024 8:17 AM EDT [facility] Plasma 09/03/2024 5:25 AM EDT 09/03/2024 5:50 AM EDT Rommel Mccoy MD LAB BLOOD ORDERABLES Final Resul t Performing Organization Address [facility] Co de Phone Number [facility] [address] documented in this encounter Visit Diagnoses [...] with SBP, s/p CTX x5d; 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 500mg daily - HE: [...] kidney disease) stage 4, GFR 15-29 ml/min ([facility]) As above for NADIYA * Assessment & [...] kidney disease) stage 4, GFR 15-29 ml/min ([facility]) As above for NADIYA * Assessment & [...] kidney disease) stage 4, GFR 15-29 ml/min ([facility]) As above for NADIYA * Assessment & [...] Problem(s): Acute kidney injury superimposed on CKD [facility] Admit Cr 3.01 (from 2.91 on 09/02, [...] kidney disease) stage 4, GFR 15-29 ml/min ([facility]) As above for NADIYA * Assessment & [...] Problem(s): Acute kidney injury superimposed on CKD ([facility]) Admit Cr 3.01 (from 2.91 on 09/02, [...] kidney disease) stage 4, GFR 15-29 ml/min ([facility]) As above for NADIYA * Assessment & [...] - 09/05/2024 2:50 PM EDTAssociated Problem(s): Thrombocytopenia ([facility]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 * Assessment & Plan [...] kidney disease) stage 4, GFR 15-29 ml/min ([facility]) As above for NADIYA * Assessment & [...] AM * Assessment & Plan Note - iKet Ramirez MD - 09/03/2024 12:34 PM EDT Associated Problem(s): CKD (chronic kidney disease) stage 4, GFR 15-29 ml/min ([facility]) Admit Cr 3.01, 3.26 on repeat (from [...] 6-8), Starting on Tish 09/04/24 at 1054 Given 09/09/2024 12:09 PM EDT 5 mg Given 09/09/2024 7:18 AM EDT 5 mg Given 09/09/2024 1:11 AM EDT 5 mg pantoprazole (PROTONIX) EC tablet 40 mg 40 mg, Oral, Every morning before breakfast, First dose on Tish 09/04/24 at 0730, Do Not Crush Given 09/09/2024 8:13 AM EDT 40 mg Given 09/08/2024 8:56 AM EDT 40 mg Given 09/07/2024 8:32 AM EDT 40 mg phytonadione (vitamin K1) (AQUA-MEPHYTON) 10 mg in sodium chloride 0.9 % 50 mL IVPB 10 mg, Intravenous, Administer over 60 Minutes, Once, On Tish 09/04/24 at 1112, For 1 dose, PROTECT FROM LIGHT New Bag 09/04/2024 12:04 PM EDT 10 mg 50 mL/hr phytonadione (vitamin K1) (AQUA-MEPHYTON) 10 mg in sodium chloride 0.9 % 50 mL IVPB 10 mg, Intravenous, Administer over 60 Minutes, Daily, First dose (after last reorder) on Sun09/05/24 at 0900, For 2 days, PROTECT FROM LIGHT New Bag 09/06/2024 9:21 AM EDT 10 m g 50 mL/hr New Bag 09/05/2024 8:08 AM EDT 10 mg 50 mL/hr potassium chloride (KCl)/Sterile water 100 mL 10 mEq/100 mL IVPB 10 mEq 10 mEq, Intravenous, Administer over 60 Minutes, every 1 hour x 2, First dose on Sun09/03/24 at 0620, For 2 doses, MAX INFUSION RATE VIA PERIPHERAL LINE IS 10 mEq/hr (100 mL/hr). New 09/03/2024 7:28 AM EDT 10 mEq 100 mL/hr New Bag 09/03/2024 6:29 AM EDT 10 mEq [...] (after last reorder) on Tish 09/04/24 at 2027, For 2 doses, MAX [...] Hughes DO)1700 (Automatically Held - Provider: Azalea Piron, DO)2225 (Unheld by provider - Provider: Automatic Discharge Provider) levothyroxine (SYNTHROID) tablet 75 mcg 75 mcg, Oral, Every morning before breakfast, First dose on Sun09/04/24 at 0730, Please hold tube feeds 30 minutes before and 90 minutes after levothyroxine administration. 0832 (Given - Provider: Yolette Yang RN) 0824 (Given - Provider: Sofía Perkins, ЮЛИЯ) 0813 (Given - Provider: Capri Schwarz [...] on Sun09/04/24 at 0730, Do Not Crush 0832 (Given [...] RN)2054 (Given - Provider: Lydia Harrison, ЮЛИЯ) 08 (Given - Provider: Capri Schwarz RN) sod [...] Yang RN)1213 (Given - Provider: Yolette Yang RN)212 (Given - Provider: Krista Bernard RN) 0856 (Given - Provider: Sofía Perkins RN)1242 (Given - Provider: Sofía Perkins RN)2054 (Given - Provider: Lydia Harrison RN) 08 (Given - Provider: Capri Schwarz RN)1209 (Given [...] 1030 0832 (Given - Provider: Yolette Yang RN)212 (Given - Provider: Krista Bernard RN) 0857 (Given - Provider: Sofía Perkins RN)2054 (Given - Provider: Lydia Harrison RN) 08 (Given - Provider: Capri Schwarz RN) vancomycin [...] FOR INSOMNIA 2127 (Given - Provider: Krista Bernard, RN) ondansetron (ZOFRAN) injection 4 mg 4 [...] RN)1522 (See Alternative - Provider: Gerda Guerra RN)2127 (See Alternative - Provider: Krista Bernard RN) 0425 (See Alternative - Provider: Krista Bernard RN)1112 (See Alternative - Provider: Sofía Perkins, ЮЛИЯ)1536 (See Alternative - Provider: Sofía Perkins RN)2055 (See Alternative - Provider: Lydia Harrison RN) 0111 (See Alternative - Provider: Cleveland Villalta, RN)0718 (See Alternative - Provider: Cleveland Villalta, RN)1209 (See Alternative - Provider: Capri Schwarz [...] Sofía Perkins, ЮЛИЯ)1536 (Given - Provider: Sofía Perkins RN)205 (Given - Provider: Lydia Harrison RN) 0111 (Given - Provider: Cleveland Villalta RN)0718 (Given [...] difficile 09/09/2024 09/09/2024 10/27/2024 8:30 AM EDT documented as of this encounter
--- OUTSIDE RECORDS SUMMARY | 2024-09-25 11:25 | XMS_ITS | Encounter Summary ---
Author Organization [facility] Address [address] [place] [address] Care Team Providers Care Swimming Pool Maintenance Name Role Phone Unavailable Primary Care Provider [...] release of HIV test results or diagnoses. [id number] Reason for Visit * Reason Comments Labs Only Encounter Details Date Type Department Care Team (Late st Contact Info) Description 09/25/2024 11:25 AM EDT Specimen [facility] Outreach Lab [address] [place] [phone] Gerri Peterson MD [facility] [place] [address] Cirrhosis of liver with ascites, [...] Recorded In the past 12 months has [employer], oil, or water [employer] threatened to shut off services in your [...] any time in the past 12 m [facility], were you homeless or living [...] Description 12/05/2024 8:01 AM EDT Hospital Encounter [facility] ENDOSCOPY [address] [place] [address] Chris Orosco MD [address] [place] [phone] 12/05/2024 8:01 AM EDT - 12/05/2024 8:31 AM EDT Surgery [facility] ENDOSCOPY [address] [place] [address] Chris Orosco MD [address] [place] [address] EGD Scheduled Procedures Name Priority Associated Diagnoses [...] BARBITURATES NOT PRESENT 09/29/2024 12:39 PM EDT [facility] BENZODIAZEPINES NOT PRESENT 09/30/19 12:39 PM EDT [facility] CANNABINOIDS NOT PRESENT 09/29/2024 12:39 PM EDT [facility] PRINTED CIRCUIT BOARDS BEVELER STIMULANTS NOT PRESENT 12:39 PM EDT [facility] OPIOID ANALGESICS PRESENT 025 12:39 PM EDT [facility] Tramadol >1000 ng/mL 09/29/2024 12:39 PM EDT [facility] OPIOID ANTAGONISTS NOT PRESENT 09/29 12:39 PM EDT [facility] SEDATIVES/MUSCLE RELAXANTS NOT PRESENT 09/29/2024 12:39 PM EDT [facility] TRICYCLIC ANTIDEPRESSANTS NOT PRESENT 09/29/2024 12:39 PM EDT [facility] Creatinine, Ur 122.10 mg/dL 09/26/2024 11:30 AM EDT [facility] Comment:Reference range not established for this test. pH 5.8 4.7 - 7.8 09/26/2024 11:30 AM EDT [facility] Specific [place] 1.010 1.003 - 1.035 09/26/2024 11:30 AM EDT [facility] Urine 09/25/2024 11:5 5 AM EDT 09/25/2024 12:19 PM EDT Narrative [facility] - 09/29/2024 12:39 PM EDT This test has been developed and its performance characteristics determined by [facility] which is certified under the [...] Chinedu Sidhu MD URINE ORDERABLES Final Result [facility] [address] [place] [address], [facility] * Phosphatidylethanol Confirmation, B (09/25/2024 11:55 AM EDT) PETH 16:0/18.1 (POPETH) <10 Cutoff: 10 ng/mL 09/29/2024 12:24 PM EDT [facility] Comment: Phosphatidylethanol (PEth) homologues result [...] Cutoff: 10 ng/mL 09/29/2024 12:24 PM EDT [facility] Comment: PEth 16:0/18:2 (PLPEth) Reference ranges are not well established PEth Interpretation Negative. 09/29 12:24 PM EDT [facility] Comment: ADDITIONAL INFORMATION This report is intended for use in clinical monitoring and management of patients. It is not intended for use in employment-related testing. This test was developed and its performance characteristics determined by [facility] in a manner consistent with CLIA requirements. This test has not been cleared or approved by the U.S. Food and Drug Administration. Test Performed by: [facility] [address] [place] [address] Deportation Examiner: Kathy Ortiz Ph.D.; CLIA# [id number] Whole Blood 09/25/2024 11:5 5 AM EDT 09/29/2024 12:24 PM EDT Chinedu Sidhu MD LAB BLOOD ORDERABLES Final Re sult Performing Organization Address City/[facility]/ZIP Co de Phone Number [facility] [address] [facility]. [address] * (ABNORMAL) Hepatic Function Panel (09/25/2024 11:55 AM EDT) Total Bilirubin 20.2(H) 0.0 - 1.5 mg/dL 09/25/2024 1:02 PM EDT [facility] Bilirubin, Direct 13.33(H) 0.00 - 0.40 mg/dL 09/25/2024 1:02 PM EDT [facility] AST 57(H) 13 - 39 U/L 09/25/2024 1:02 PM EDT [facility] ALT 29 7 - 52 U/L 09/25/2024 1:02 PM EDT [facility] Alkaline Phosphatase 171(H) 36 - 125 U/L 09/25/2024 1:02 PM EDT [facility] Total Protein 5.6(L) 6.4 - 8.9 g/dL 09/25/2024 1:02 PM EDT [facility] Albumin 3.5 3.5 - 5.7 g/dL 09/25/2024 1:02 PM EDT [facility] Bilirubin, Indirect 6.87(H) 0.00 - 1.10 mg/dL 09/25/2024 1:02 PM EDT [facility] Plasma 09/25/2024 11:5 5 AM EDT 09/25/2024 12:21 PM EDT us Gerri Petersno MD LAB BLOOD ORDERABLES Final Resu lt [facility] [address] [facility]. [address] * (ABNORMAL) Protime-INR (09/25/2024 11:55 AM EDT) Protime 23.6(H) 12.1 - 15.1 seconds 09/25/2024 12:46 PM EDT [facility] INR 2.0(H) 0.9 - 1.1 09/25/2024 12:46 PM EDT [facility] Comment: RECOMMENDED THERAPEUTIC RANGES USING INR : Stable oral anticoagulant therapy: 2.0 - 3.0 Mechanical prosthetic heart valve: 2.5 - 3.5 Recurrent acute myocardial infarction: 2.5 - 3.5 Plasma 09/25/2024 11:5 5 AM EDT 09/25/2024 12:20 PM EDT us Gerri Peterson MD LAB BLOOD ORDERABLES Final Resu lt [facility] [address] * (ABNORMAL) CBC (09/25/2024 11:55 AM EDT) WBC 8.2 3.8 - 10.8 10E3/uL 09/25/2024 1:43 PM EDT [facility] RBC 2.88(L) 4.20 - 5.80 10E6/uL 09/25/2024 1:43 PM EDT [facility] Hemoglobin 10.8(L) 13.2 - 17.1 g/dL 09/25/2024 1:43 PM EDT [facility] Hematocrit 29.8(L) 38.5 - 50.0 % 09/25/2024 1:43 PM EDT [facility] MCV 103.5(H) 80.0 - 100.0 fL 09/25/2024 1:43 PM EDT [facility] MCH 37.6(H) 27.0 - 33.0 pg 09/25/2024 1:43 PM EDT [facility] MCHC 36.3(H) 32.0 - 36.0 g/dL 09/25/2024 1:43 PM EDT [facility] RDW 20.1(H) 11.0 - 15.0 % 09/25/2024 1:43 PM EDT [facility] Platelets 62(L) 140 - 400 10E3/uL 09/25/2024 1:43 PM EDT [facility] Comment: _Platelets Appear Decreased Slide Reviewed for PLT Clumps. None Seen. Specimen checked for clots. None detected. MPV 8.3 7.5 - 11.5 fL 09/25/2024 1:43 PM EDT [facility] Whole Blood 09/25/2024 11:5 5 AM EDT 09/25/2024 12:20 PM EDT us Gerri Peterson MD LAB BLOOD ORDERABLES Final Resu lt [facility] [address] [facility] [place] [address], [facility] * (ABNORMAL) Comprehensive metabolic panel (09/25/2024 11:55 AM EDT) Sodium 133 133 - 146 mmol/L 09/25/2024 12:50 PM EDT [facility] Potassium 4.1 3.5 - 5.3 mmol/L 09/25/2024 12:50 PM EDT [facility] Chloride 103 98 - 110 mmol/L 09/25/2024 12:50 PM EDT [facility] CO2 18(L) 21 - 33 mmol/L 09/25/2024 12:50 PM EDT [facility] Anion Gap 12 3 - 16 mmol/L 09/25/2024 12:50 PM EDT [facility] BUN 42(H) 7 - 25 mg/dL 09/25/2024 12:50 PM EDT [facility] Creatinine 3.13(H) 0.60 - 1.30 mg/dL 09/25/2024 12:50 PM EDT [facility] Glucose 106(H) 70 - 100 mg/dL 09/25/2024 12:50 PM EDT [facility] Calcium 9.3 8.6 - 10.3 mg/dL 09/25/2024 12:50 PM EDT [facility] Total Bilirubin 20.2(H) 0.0 - 1.5 mg/dL 09/25/2024 1:02 PM EDT [facility] AST 57(H) 13 - 39 U/L 09/25/2024 1:02 PM EDT [facility] ALT 29 7 - 52 U/L 09/25/2024 1:02 PM EDT [facility] Alkaline Phosphatase 171(H) 36 - 125 U/L 09/25/2024 1:02 PM EDT [facility] Total Protein 5.6(L) 6.4 - 8.9 g/dL 09/25/2024 1:02 PM EDT [facility] Albumin 3.5 3.5 - 5.7 g/dL 09/25/2024 1:02 PM EDT [facility] Osmolality, Calculated 287 278 - 305 mOsm/kg 09/25/2024 12:50 PM EDT [facility] EGFR 25 09/25/2024 12:50 PM EDT [facility] Comment:As of 2021, the estimated [...] MD LAB BLOOD ORDERABLES Final Resu lt [facility] [address] [place] [address], [facility] documented in this encounter Visit Diagnoses Diagnosis [...]
--- OUTSIDE RECORDS SUMMARY | 2024-09-29 11:00 | XMS_ITS | Encounter Summary ---
Author Organization [facility] Address [address] [place] [address] Care Team Providers Care Product Management Internship Name Role Phone Unavailable Primary Care Provider [...] release of HIV test results or diagnoses. [id number] Health Encounter Details Date Type Department Care Team (Late st Contact Info) Description 09/29/2024 11:00 AM EDT Office Visit [facility] Psychiatry Transplant at [facility] [address] [facility] [address] [place] [phone] Craig Warren PsyD [address] [facility] [address] [place] [address] PTSD (post-traumatic stress disorder) (Primary [...] Recorded In the past 12 months has [employer], gas, oil, or water company threatened to [...] any time in the past 12 m [facility], were you homeless or living in a [...] The following assessment was informed by the [place] Integrated Psychosocial Assessment for Transplant (SIP AT) [...] mother is and his father resides in [facility]. Patient earned a graduate degree and never served in the . 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 He was raised Roman Catholic and denied current engagement in any community [...] elected kentrelle VIKAS and went directly to [facility] for care. Patient trusts [...] most recent in 2023. Given distance to [facility] (~ 1.25 - 1.5 hr) and transplant [...] well as with an individual counselor, at [facility]. Alcohol use triggers identified as [...] PCP). Was established with Pain Management at [facility] under VALENTINE Rodriguez May 2024. Note [...] Description 12/05/2024 8:01 AM EDT Hospital Encounter [facility] ENDOSCOPY [address] [place] [address] Chris Orosco MD [address] [place] [phone] 12/05/2024 8:01 AM EDT - 12/05/2024 8:31 AM EDT Surgery [facility] ENDOSCOPY [address] [place] [address] Chris Orosco MD [address] [place] [phone] EGD Scheduled Procedures Name Priority Associated Diagnoses [...]
--- OUTSIDE RECORDS SUMMARY | 2024-09-29 14:20 | XMS_ITS | Encounter Summary ---
Author Organization Healthcare Address [address] [place] [address] Care Team Providers Care Services Coordinator Name Role Phone Regina, Lj Nova APRN Unavailable [phone] Enedina Mcguire APRN Primary Care Provider + Reason for Referral * Consultation (Routine) - Authorized Specialty Diagnoses / Procedures Referred By Shane t Referred To Contact Diagnoses NADIYA (acute kidney injury) (CMS/HCC) Portal hypertension (CMS/HCC) Secondary esophageal varices with bleeding (CMS/HCC) Yovanny Curran MD [address] [address] Phone: tel: fax: Referral ID Status Reason Start Date Expiration Date V isits Requested Visits Authorized [id number] Authorized 09/29/2024 03/31/2026 1 1 Reason for Visit * Reason Comments Follow-up Pt did not taken vit al sign Encounter Details Date Type Department Care Team ([facility] Contact Info) Description 09/29/2024 2:20 PM EDT Office Visit Professional [employer] [place] Nephrology, Bone & Mineral Metabolism [address] [place] [address] Yovanny Bob MD [address] [place] [address] NADIYA (acute kidney injury) (CMS/HCC) [...] How [facility] you attend [facility] or tenriism services? Patient unable to answer 07/14/2024 Do you belong to any clubs o r organizations such as mormonism groups, unions, fraternal or athletic groups, or [...] Recorded Patient Health Questionnaire-2 Score 2 09/29/2024 [facility] of Occupat ional [facility] - Occupational Stress Questionnaire Answer Date [...] a senior care (including now)? No 11/19/2023 PHQ-9 Answer Date [...] any time in the past 12 m [facility], were you homeless or living in a [...] drink first t deborah in the morning (EYE-SOLAR ENERGY CONSULTANT AND DESIGNER) to steady your nerves or to get rid of a hangover? 0 07/19/2024 CAGE Questionnaire Score 2 025 Utilities Answer Date Recorded In the past 12 months has th [employer], gas, oil, or water [employer] threatened to shut off services in your [...] Patient confirms they are physically located in [place]? Yes If the patient is not physically located in [place], the provider has confirmed with [facility] thatthe provider is authorized to provide services in patient's stated location? N/A Provider Location: [facility] facility Audio and video or audio only? Audio and video Total visit time: 20 minutes HISTORY OF PRESENT ILLNESS Julien Anderson was seen in our clinic previously with/for Follow-up. As you know, patient is a 39 y.o. male who presents to the clinic today as follow up of his NADIYA. Most recently discharged on 09/09 from [facility]. Cr at time of discharge was 2.4. Cr most recently at [facility] was 3.0. On bicarb repletion. C/O [...] impressions, importance of compliance with treatment, and terminal operations manager nature of condition. Education provided was verbal [...] Description 12/01/2024 2:20 PM EDT Office Visit [facility] [place] Nephrology, Bone & Mineral Metabolism [address], [address] [place] [address] Yovanny Curran MD [address] [place] [address] 01/08/2025 3:20 PM EDT Office Visit [facility] [address], [address] [place] [address] Vincent Braga MD [address] [place] [address] Scheduled Referrals Name Type Priority [...] documented as of this encounter Care Teams Services Coordinator Relationship Specialty Start Date End Date Enedina Mcguire APRN [address] [place] [address] PCP - General 12/04/22 Lj Tapia APRN [facility] [place], [place] [phone] Referring Physician Gastroenterology 07/18/22 documented as of this encounter
--- OUTSIDE RECORDS SUMMARY | 2024-10-05 23:12 | XMS_ITS | Encounter Summary ---
Author Organization [facility] Address [facility] [place] [address] Care Team Providers Care Playground Equipment Erector Name Role Phone Enedina Mcguire NP Primary Care Provider [phone] Source Comments This information has been disclosed [...] release of HIV test results or diagnoses. [id number] Reason for Referral * Surgical (Routine) - New Request Specialty Diagnoses / Procedures Referred By Shane hernadez Referred To Contact Gastroenterology Diagnoses Alcoholic cirrhosis of liver with ascites (CMS-HCC) Procedures Case request GI: EGD Gerri Peterson MD [address] [place] [address] Phone: tel: fax: Referral ID Status Reason Start Date Expiration Date V isits Requested Visits Authorized [id number] New Request 10/08/2024 04/06/2025 1 1 Reason for Visit * Auth/Cert (Routine) Specialty Diagnoses / Procedures Referred By Shane hernadez Referred To Contact General Internal Medicine Diagnoses [facility] [address] [place] [address] Phone: tel: Referral ID Status Reason Start Date Expiration Date Visits Re quested Visits Authorized [id number] 1 1 Encounter Details Date Type Department Care Team (Latest Contact Info) Description 10/05/2024 11:12 PM EDT - 10/17/2024 10:29 AM EDT Hospital Encounter [facility] [address] [place] [phone] Angie Blanchard MD [address] [place], [place] [id number] Fouzia Rene MD [address] [place] [address] Med/[place] [address] Chelsy Lerner MD [address] [place] [address] [place] [address] Alcoholic cirrhosis of liver with [...] Recorded In the past 12 months has [employer], [employer], oil, or water [employer] threatened to shut off services in [...] living in a fci (including now)? No 10/06/2024 Yearly Questionnaire Answer [...] Home post discharge: Not Applicable Kandy BAE [facility] [phone] * William Blount MD - 10/17/2024 8:50 AM EDT [facility] Inpatient Discharge Summary Patient: Julien Gilbert Age: 39 y.o. CSN: [id number] Date of Admission: 10/05/2024 Date of Discharge: 10/17/2024 Attending Physician: Chelsy Lerner MD Primary Care Physician: Enedina Mcguire NP Diagnoses Present on Admission Past Medical History: Diagnosis Date Alcoholic cirrhosis of liver (CMS-HCC) Esophageal varices (CMS-HCC) Hepatorenal syndrome (CMS-HCC) Hypertension Other hyperlipidemia 07/26/2024 Renal cell carcinoma (CMS-HCC) Thrombocytopenia ([facility]) Thyroid disease Discharge Diagnoses Active Hospital [...] Case IDs Date Procedure Surgeon Location Status [id number] 10/10/24 EGD Lino Soto MD ENDOSCOPY Comp [id number] 10/14/24 Left Heart Cath Irving Matta MD [...] at 10/08/2024 1:12 PM EDT US Duplex Gfb-Jpu-Nuaroln Comp Final Result IMPRESSION: ABDOMEN 1. Cirrhotic [...] 90 tablet Refills: 0 naloxone 4 mg/actuation [place] Commonly known as: NARCAN Apply 1 spray [...] These medications were sent to [facility] [address] [place] [id number] Hours: Sunday - Sunday: 8:00AM - 6:00PM FLUoxetine 20 MG capsule lactulose 10 gram/15 mL solution loratadine 10 mg tablet methocarbamoL 500 MG tablet midodrine 10 MG tablet naloxone 4 mg/actuation [place] oxyCODONE 5 MG immediate release tablet Discharge [...] Order Questions: Select Supplement: Boost-1 kcal/ml supplement ([facility] only) As listed above, low sodium [...] AM EDT 10/17/2024 naloxone (NARCAN) 4 mg/actuation [place] Apply 1 spray in one nostril if [...] 10:23 AM EDT [facility] PROGRESS NOTE Name: Julien Gilbert CSN: [id number] Consulted by: Chelsy Lerner MD Reason for [...] Yes Past Week naloxone (NARCAN) 4 mg/actuation [place] Apply 1 spray in one nostril if [...] nucleated cells, <2000 RBCs 10% Polynuclear, 90% [place] nuc. There were initial reports of gram [...] of chemical dependency treatment as outpatient. - [facility] with no obstructive coronary disease - Psych eval for PTSD With recommendation of sertraline - Given his renal dysfunction, will plan to list for [facility] when he qualifies on 10/22/2024. Labs next week - Plan for d/c today Bobby Sidhu MD Transplant Circular Knitter Helper Please see the body of the resident, [...] remains <30 until October 22. Waiting for [facility] today. ASSESSMENT NADIYA on CKD, last discharge [...] Staff. Jeremiah Gamino PGY4 Nephrology. Pager no. [phone] Chief Complaint No chief complaint on file. [...] at 10/08/2024 1:12 PM EDT US Duplex Wdi-Djd-Xpwclkf Comp Final Result IMPRESSION: ABDOMEN 1. Cirrhotic [...] no head imaging has been performed at [facility] -CT Head w/o contrast -Imaging showed no [...] Order Questions: Select Supplement: Boost-1 kcal/ml supplement ([facility] only) Code Status: Full Code Signed: WILLIAM BLOUNT MD 10/16/2024, 2:16 PM Cosigned by Chelsy Lerner MD at 10/16/2024 5:38 PM EDT Associated attestation - Chelsy Lerner MD - 10/16/2024 5:38 PM EDT [facility] Medicine Attending Supervision Note Julien Gilbert [...] another specialty or practice, other licensed professional (PT/OT/METHODS EXAMINER/RT), or a non-medical community professional: Hepatology, Interventional [...] due to positioning during LHC on 10/14. [place] the worst in CVR, but has improved [...] Medicine 10/16/2024 5:36 PM * Lorena Kumar, DMITRY - 10/16/2024 1:08 PM EDT [facility] Medical Nutrition Therapy Follow-Up Diet Order/Nutrition Support: Regular diet, Boost TID - Vanilla preference Pertinent Information: This is a 39 year old male history of ETOH cirrhosis d/b HE, ascites with SBP who is admitted for AMS. Precipitant of his HE likely SBP. Diagnostic paracentesis at OSH reportedly showed 61 nucleated cells, <2000 RBCs 10% Polynuclear, 90% [place] nuc. There were initial reports of gram [...] Based on CBW of 119.5 kg Kcals/day: 0655-4334 (18-21 kcals/kg) Protein g/day: 119-143 (1-1.2 g/kg) [...] Kumar RD, LD Clinical Dietitian Contact via [employer] * Jerad Hughes MD - 10/16/2024 11:03 AM EDT [facility] PROGRESS NOTE Name: Julien Gilbert CSN: [id number] Consulted by: Chelsy Lerner MD Reason for [...] nucleated cells, <2000 RBCs 10% Polynuclear, 90% [place] nuc. There were initial reports of gram [...] use. 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 He is undergoing chemical dependency treatment and has completed 8 of planned 12 weeks. Completed course of ceftriaxone for bacterial ascites and now on Cipro. HE is controlled. Creatinine is near 3. MRI with no liver lesions, ablated left renal [...] of chemical dependency treatment as outpatient. - [facility] with no obstructive coronary disease - Psych eval for PTSD With recommendation of sertraline - Given his renal dysfunction, will plan to list for [facility] when he qualifies on 10/22/2024. - Will follow Bobby Sidhu MD Transplant Circular Knitter Helper Please see the body of the resident, [...] remains <30 until October 22. Waiting for [facility] today. ASSESSMENT NADIYA on CKD, last discharge [...] COMMENT on 10/08/2024 Iron%- Iron replete PLAN -[facility] yesterday- patient remains at risk of contrast related injury on top of exisiting NADIYA for 24-48 hrs after contrast load. -He is volume overloaded -patient needs to follow up closely with nephrology after discharge Thank you for allowing us to participate in this patient's care. Discussed with Consult Staff. Jeremiah Gamino PGY4 Nephrology. Pager no. [phone] Chief Complaint No chief complaint on file. [...] injury superimposed on CKD (CMS-HCC). NAEON. Pt's [facility] yesterday without concern for severe coronary artery [...] at 10/08/2024 1:12 PM EDT US Duplex Eug-Mjw-Pdkuavx Comp Final Result IMPRESSION: ABDOMEN 1. Cirrhotic [...] no head imaging has been performed at [facility] -CT Head w/o contrast -Imaging showed no [...] Order Questions: Select Supplement: Boost-1 kcal/ml supplement ([facility] only) Code Status: Full Code Signed: [...] another specialty or practice, other licensed professional (PT/OT/METHODS EXAMINER/RT), or a non-medical community professional: Hepatology, Interventional [...] due to positioning during LHC on 10/14. [place] the worst in CVR, but has improved [...] 10:15 AM EDT [facility] PROGRESS NOTE Name: Julien Gilbert CSN: [id number] Consulted by: Chelsy Lerner MD Reason for [...] nucleated cells, <2000 RBCs 10% Polynuclear, 90% [place] nuc. There were initial reports of gram [...] - Will follow Bobby Sidhu MD Transplant Circular Knitter Helper Please see the body of the resident, [...] Quan MD - 10/14/2024 2:34 PM EDT [facility] Department of Cardiovascular Health and [...] and report listed in [employer]. * Jeremiah Gamnio MD - 10/14/2024 12:31 PM EDT Images [...] remains <30 until October 22. Waiting for [facility] today. ASSESSMENT NADIYA on CKD, last discharge creatinine 2.4 Baseline Creatinine 1.2-1.3, HRS- NADIYA as no response to holding lasix and albumin UA bland Urine lytes <10/< 15/ 50 Holding lasix give [facility] today Renal Function: Recent Labs 10/14/24 0253 [...] COMMENT on 10/08/2024 Iron%- Iron replete PLAN -[facility] today -pt is volume up slightly -standing weights daily -c.w sodium bicarb tablets -discssed with the patient anad family about risk of needing HD after [facility] Thank you for allowing us to participate in this patient's care. Discussed with Consult Staff. Jeremiah Gamino PGY4 Nephrology. Pager no. [phone] Chief Complaint No chief complaint on file. [...] at 10/08/2024 1:12 PM EDT US Duplex Haj-Wqk-Gpbwkxq Comp Final Result IMPRESSION: ABDOMEN 1. Cirrhotic [...] not tolerate Stress ECHO on 10/09 - [facility] today -Per GI recs, started on midodrine [...] no head imaging has been performed at [facility] -CT Head w/o contrast -Imaging showed no [...] never required dialysis. Patient is going for [facility] today and will receive contrast, okay per [...] Order Questions: Select Supplement: Boost-1 kcal/ml supplement ([facility] only) Code Status: Full Code Signed: WILLIAM BLOUNT MD 10/14/2024, 10:26 AM Cosigned by Chelsy Lerner MD at 10/14/2024 11:53 AM EDT Associated attestation - Chelsy Lerner MD - 10/14/2024 11:53 AM EDT [facility] Medicine Attending Supervision Note Julien Gilbert [...] another specialty or practice, other licensed professional (PT/OT/METHODS EXAMINER/RT), or a non-medical community professional: Hepatology, Interventional [...] 7:42 AM EDT [facility] PROGRESS NOTE Name: Julien Gilbert CSN: [id number] Consulted by: Chelsy Lerner MD Reason for [...] nucleated cells, <2000 RBCs 10% Polynuclear, 90% [place] nuc. There were initial reports of gram [...] eval ongoing. Transplant work up ongoing - [facility] today - Transplant nephrology following for consideration [...] - Will follow Bobby Sidhu MD Transplant Circular Knitter Helper Please see the body of the resident, [...] Staff. Jeremiah Gamino PGY4 Nephrology. Pager no. [phone] Chief Complaint No chief complaint on file. [...] 12:33 PM EDT [facility] PROGRESS NOTE Name: Julien Gilbert CSN: [id number] Consulted by: Fouzia Rene MD Reason for [...] Alcoholic hepatitis Esophageal varices (CMS-HCC) Hepatorenal syndrome ([facility]-H[facility]) Hypertension Other hyperlipidemia 07/26/2024 Renal cell [...] nucleated cells, <2000 RBCs 10% Polynuclear, 90% [place] nuc. There were initial reports of gram [...] eval ongoing. Transplant work up ongoing - [facility] today - Transplant nephrology following for consideration [...] - Will follow Bobby Sidhu MD Transplant Circular Knitter Helper Please see the body of the resident, [...] any interval liver pathology. * Rebekah Linares, [facility] - 10/13/2024 12:30 PM EDT Start Time: [...] no psychomotor abnormalities Cognition: short term and terminal block assembler memory intact Attitude: cooperative Affect: full range [...] Fabian, RD - 10/13/2024 10:49 AM EDT [facility] Medical Nutrition Therapy Reason(s) for [...] Order Questions: Select Supplement: Boost-1 kcal/ml supplement ([facility] only) Pertinent Information: Julien Gilbert is a 39 y.o. Male admitted for Acute kidney injury superimposedon CKD ([facility]) Pt noted to have waxing and [...] Weight: please obtain Pertinent Labs: Recent Labs 10/11/2430110/12/2454310/13/24 0535 WBC 4.0 3.3* 4.7 HGB 7.7* [...] kg) Body mass index is 32.07 kg/m??. [place] Body Weight: 202 lbs (91.8 kg) +/- 10% Weight History: Wt Readings from Last 10 Encounters: 10/10/24 (!) 263 lb 8 oz (119.5 kg) 09/05/24 (!) 262 lb 9.6 oz (119.1 kg) 09/02/24 (!) 258 lb (117 kg) 08/17/24 (!) 242 lb 11.2 oz (110.1 kg) 07/28/24 (!) 245 lb (111.1 kg) Estimated Nutrition Needs: Based on CBW of 119.5 kg Kcals/day: 6188-0867 (18-21 kcals/kg) Protein g/day: 119-143 (1-1-2 g/kg) [...] Dietitian - Solid Organ Transplant Contact via [employer] Chat * Eileen Schroeder MD, PhD - [...] at 10/08/2024 1:12 PM EDT US Duplex Mfa-Pkp-Gofrrls Comp Final Result IMPRESSION: ABDOMEN 1. Cirrhotic [...] no head imaging has been performed at [facility] -CT Head w/o contrast -Imaging showed no [...] Order Questions: Select Supplement: Boost-1 kcal/ml supplement ([facility] only) Code Status: Full Code Signed: [...] I reviewed the documentation by the medical bakery team leader and agree as documented. Any additions or [...] was non-diagnostic due to hypotension. Plan for [facility] today, but now moved to tomorrow. - [...] when medically ready. Consider d/c home after [facility] tomorrow. FOUZIA RENE MD Attending Physician Department of Internal Medicine 10/13/2024 Medical Decision Making: // LEVEL 2 MOD One chronic illness with exacerbation, progression, or side effects of treatment Discussed with physician/SAWYRE from another specialty or practice, other licensed professional (PT/OT/METHODS EXAMINER/RT), or a non-medical community professional: Nephrology, Hepatology [...] at 10/08/2024 1:12 PM EDT US Duplex Syg-Mel-Vxxxeoi Comp Final Result IMPRESSION: ABDOMEN 1. Cirrhotic [...] no head imaging has been performed at [facility] -CT Head w/o contrast -Imaging showed no [...] Order Questions: Select Supplement: Boost-1 kcal/ml supplement ([facility] only) Code Status: Full Code Signed: [...] I reviewed the documentation by the medical bakery team leader and agree as documented. Any additions or clarifications are listed below. Daily plan was discussed with patient at bedside and questions addressed. Patient ID: Julien Gilbert is a 39 y.o. male currently admitted for Acute kidney injury superimposed on CKD ([facility]) Supplemental History/ ROS: No acute events [...] was non-diagnostic due to hypotension. Plan for [facility] tomorrow. - EGD completed. - Imaging requiring [...] another specialty or practice, other licensed professional (PT/OT/METHODS EXAMINER/RT), or a non-medical community professional: Nephrology, Hepatology [...] tid. cardiac workup pre txp. pLan for [facility] Sunday Liver transplant workup per GI/ Primary [...] concern for hepatorenal syndrome.` Patient came from [facility], paracentesis was performed yesterday on [...] Laboratory Data and Imaging Recent Labs 10/10/2452210/11/24 0302 10/12/24 0544 WBC 5.1 4.0 3.3* [...] 706.9 (H) 10/08/2024 No results found for: [id number] , FOLATE Lab Results Component Value Date [...] CRUR No results found for: MICROALBUR , [id number] In addition to the above an extensive [...] 4.6 10/12/2024 Lab Results Component Value Date BGEM51P 7.1 (L) 10/08/2024 PLAN Monitor renal panel [...] 10/12/2024 5:44 AM Colten Huertas MD, KISHOR LIN, CATHYF physician asst Div. of Nephrology [facility] E-mail: [email or web address] This note was completely edited, written [...] Rene MD Interval hx No issues. Pending [facility]. Assessment: Renal Function: Cr: 2.77 Bun: 49 [...] concern for hepatorenal syndrome.` Patient came from [facility], paracentesis was performed yesterday on [...] 706.9 (H) 10/08/2024 No results found for: VMARSIEP09 , FOLATE Lab Results Component Value Date COLORU Yellow 10/06/2024 CLARITYU Clear 10/06/2024 PROTEINUA Negative 10/06/2024 PHUR 6.0 10/06/2024 LABSPEC 1.014 10/06/2024 GLUCOSEU Negative 10/06/2024 BLOODU Negative 10/06/2024 LEUKOCYTESUR Negative 10/06/2024 NITRITE Negative 10/06/2024 BILIRUBINUR Negative 10/06/2024 UROBILINOGEN <2.0 10/06/2024 RBCUA 1 09/03/2024 WBCUA 1 09/03/2024 BACTERIA Occasional (A) 09/03/2024 No results for input(s): NAUR , ISAAC , RICHIE in the last 72 hours. Invalid input(s): CO2UR , CRUR No results found for: MARCIALALSERGIO , [id number] In addition to the above an extensive [...] 3.5 10/11/2024 Lab Results Component Value Date WMGY61U 7.1 (L) 10/08/2024 PLAN Monitor renal panel [...] AM Colten Huertas MD, DELIA, KISHOR, FNKF physician asst Div. of Nephrology [facility] E-mail: [email or web address] This note was completely edited, written [...] is Acute kidney injury superimposed on CKD ([facility]). NAEON Pt felt much better today. [...] at 10/08/2024 1:12 PM EDT US Duplex Mbu-Ler-Niacana Comp Final Result IMPRESSION: ABDOMEN 1. Cirrhotic [...] from outside facility. Will engage with them daily([phone]. Ask to speak to a tech) about [...] no head imaging has been performed at [facility] -CT Head w/o contrast -Imaging showed no [...] Order Questions: Select Supplement: Boost-1 kcal/ml supplement ([facility] only) Code Status: Full Code Signed: [...] I reviewed the documentation by the medical bakery team leader and agree as documented. Any additions or clarifications are listed below. Daily plan was discussed with patient at bedside and questions addressed. Patient ID: Julien Gilbert is a 39 y.o. male currently admitted for Acute kidney injury superimposed on CKD ([facility]) Supplemental History/ ROS: No acute events [...] for Acute kidney injury superimposed on CKD ([facility]) Active Problems: Spontaneous Bacterial Peritonitis (CMS-HCC): He [...] Continue home lactulose and rifaximin Decompensated cirrhosis ([facility]): Appreciate hepatology consult. He has started [...] reflux disease) Anemia SBP (spontaneous bacterial peritonitis) (CMS-[facility]) Neck pain with history of cervical spinal [...] another specialty or practice, other licensed professional (PT/OT/METHODS EXAMINER/RT), or a non-medical community professional: Nephrology, Hepatology, [...] Strictly monitor urine output No Indication for INTERNATIONAL LOGISTICS ANALYST 3. Not a candidate for terlipressin per [...] Ignacio Queen MD Renal Fellow Pager # [phone] Chief Complaint No chief complaint on file. [...] concern for hepatorenal syndrome.` Patient came from [facility], paracentesis was performed yesterday on [...] PHOS -- < > 3.5 3.4 3.3 GZKY91N 7.1* -- -- -- -- < > = values in this interval not displayed. Lab Results Component Value Date IRON 81 10/08/2024 TIBC SEE COMMENT 10/08/2024 FERRITIN 706.9 (H) 10/08/2024 No results found for: AJOPDLSO01 , FOLATE Lab Results Component Value Date [...] CRUR No results found for: MICROALBUR , [id number] In addition to the above an extensive [...] 3.3 10/10/2024 Lab Results Component Value Date MPHJ17Z 7.1 (L) 10/08/2024 PLAN Continue IV albumin [...] AM Colten Huertas MD, KISHOR LIN FNKF physician asst Div. of Nephrology [facility] E-mail: [email or web address] This note was completely edited, written [...] to follow pt while pt is at [facility]. * Jodi Ortiz PharmD - 10/10/2024 10:27 AM EDT Clinical Pharmacy Service: Vancomycin Consult Progress Note Patient has been transitioned off of vancomycin therapy per team notes and orders. Pharmacy will sign-off at this time, please do not hesitate to consult again as needs arise. Thank you for involving pharmacy in the care of this patient. Jodi Ortiz PharmD Clinical Vacuum Conditioner Operator, Internal Medicine Preferred contact: [employer] Clinical Idvkoud-Ux-Oxfr Pager: [phone] October 10, 2024 10:27 AM Laboratory Data [...] 10/07/2024 10:50 PM Giardia Cryptosporidium Antigens Final [id number] 10/07/2024 10:50 PM Ova and Parasite Comprehensive w/ Giardia/Crypto Final [id number] Feces 10/06/2024 1:04 AM #2 Blood culture-Peripheral site 2 Preliminary [id number] Peripheral 10/06/2024 1:04 AM #1 Blood culture-Peripheral site 1 Preliminary [id number] Peripheral Pharmacokinetics Lab Results (Last 7 days) Today 0523 Yesterday 0459 10/08 0536 Vanc Rdm 16.4 11.0 16.0 * Gerri Peterson MD - 10/10/2024 10:09 AM EDT [facility] PROGRESS NOTE Name: Julien Gilbert CSN: [id number] Consulted by: Fouzia Rene MD Reason for [...] nucleated cells, <2000 RBCs 10% Polynuclear, 90% [place] nuc. Per OSH reports, ascitic fluid cultures [...] from the original note were not included. [facility] Clinical Pharmacy Service: Vancomycin Monitoring Consult [...] in sodium chloride 0.9 % 250 mL Opqp2Byk (Completed) 1,500 mg Once 10/09/2024 10/09/2024 Admin Instructions: Contact pharmacy if there is a question/concern of whether vancomycin should begiven based on serum drug levels. Use Lmyn3Sia Adapter - Mix Thoroughly Before Administration Route: Intravenous vancomycin (VANCOCIN) 1,500 mg in sodium chloride 0.9 % 250 mL Xnjh0Wuv 1,500 mg Once 10/10/2024 10/11/2024 Admin Instructions: Contact pharmacy if there is a question/concern of whether vancomycin should begiven based on serum drug levels. Use Rkcr7Mqs Adapter - Mix Thoroughly Before Administration Route: [...] in sodium chloride 0.9 % 250 mL Lbfq9Hdh 1,500 mg 166.7 mL/hr 10/08/24 1259 New Bag vancomycin (VANCOCIN) 1,000 mg in sodium chloride 0.9 % 250 mL Ntkq6Amy 1,000 mg 250 mL/hr --Objective Data-- Vitals: [...] 53 53 54 Creatinine 2.85 2.89 3.04 [place] body weight: 86.8 kg (191 lb 5.7 oz) Adjusted ideal body weight: 99.9 kg (220 lb 3.5 oz) Estimated CrCl: ~35-45 mL/min --Cultures-- Microbiology Results Date and Time Order Name Sensitivity Status Organisms Specimen ID Source 10/07/2024 10:50 PM Giardia Cryptosporidium Antigens Final [id number] 10/07/2024 10:50 PM Ova and Parasite Comprehensive w/ Giardia/Crypto Final [id number] Feces 10/06/2024 1:04 AM #2 Blood culture-Peripheral site 2 Preliminary [id number] Peripheral 10/06/2024 1:04 AM #1 Blood culture-Peripheral site 1 Preliminary [id number] Peripheral --Vancomycin Concentrations-- Lab Results (Last 7 [...] for the consult. Jodi Ortiz, PharmD Clinical Vacuum Conditioner Operator, Internal Medicine Preferred contact: [employer] Clinical Wdtgfdc-Mt-Xgqr Pager: [phone] October 10, 2024 9:13 AM * Eileen [...] at 10/08/2024 1:12 PM EDT US Duplex Lfa-Ttu-Heyichv Comp Final Result IMPRESSION: ABDOMEN 1. Cirrhotic [...] from outside facility. Will engage with them daily([phone]. Ask to speak to a tech) about [...] no head imaging has been performed at [facility] -CT Head w/o contrast -Imaging showed no [...] Order Questions: Select Supplement: Boost-1 kcal/ml supplement ([facility] only) Code Status: Full Code Signed: [...] I reviewed the documentation by the medical bakery team leader and agree as documented. Any additions or clarifications are listed below. Daily plan was discussed with patient at bedside and questions addressed. Patient ID: Julien Gilbert is a 39 y.o. male currently admitted for Acute kidney injury superimposed on CKD ([facility]) Supplemental History/ ROS: No acute events [...] for Acute kidney injury superimposed on CKD ([facility]) Active Problems: Spontaneous Bacterial Peritonitis (CMS-HCC): Cultures [...] Continue home lactulose and rifaximin Decompensated cirrhosis ([facility]): Appreciate hepatology consult. He has started [...] IR. NADIYA (acute kidney injury) on CKD ([facility]): Appreciate nephrology consult. Likely due to hepatorenal syndrome. S/p albumin X3. baseline creatinine presumed to be around 2.5. Creatinine slowly improving. We will continue to monitor. Electrolyte derangements: Replete as needed Neck Pain: He has a history of cervical surgery. Continue oxycodone as needed for pain. Continue tomonitor. Principal Problem: Acute kidney injury superimposed on CKD ([facility]) Active Problems: Decompensated cirrhosis ([facility]) Metabolic encephalopathy Thrombocytopenia ([facility]) Renal mass, left Metabolic acidosis with normal anion gap and bicarbonate losses GERD (gastroesophageal reflux disease) Anemia SBP (spontaneous bacterial peritonitis) ([facility]) Neck pain with history of cervical spinal [...] another specialty or practice, other licensed professional (PT/OT/METHODS EXAMINER/RT), or a non-medical community professional: Nephrology, Hepatology, [...] Strictly monitor urine output No Indication for INTERNATIONAL LOGISTICS ANALYST Not a candidate for terlipressin per liver due to HE, liver and kidney failure, on midodrine tid. Considering para today, cardiac workup pre txp Liver transplant workup per GI/ Primary team, considering for SLK, seen by renal transplant team Thank you for allowing us to participate in this patient's care. Discussed with Consult Staff. Ignacio Queen MD Renal Fellow Pager # [phone] Chief Complaint No chief complaint on file. [...] concern for hepatorenal syndrome.` Patient came from [facility], paracentesis was performed yesterday on [...] 9.0 9.3 PHOS -- 3.5 3.5 3.4 BDND44C 7.1* -- -- -- Lab Results Component Value Date IRON 81 10/08/2024 TIBC SEE COMMENT 10/08/2024 FERRITIN 706.9 (H) 10/08/2024 No results found for: ZLOYONHS05 , FOLATE Lab Results Component Value Date [...] CRUR No results found for: MICROALBUR , [id number] In addition to the above an extensive [...] 3.4 10/09/2024 Lab Results Component Value Date WYJE38G 7.1 (L) 10/08/2024 PLAN Continue IV albumin [...] 10/09/2024 1:05 PM Colten Huertas MD, KISHOR LNI FNKF physician asst Div. of Nephrology [facility] E-mail: [email or web address] This note was completely edited, written [...] 1:07 PM EDT [facility] PROGRESS NOTE Name: Julien Gilbert CSN: [id number] Consulted by: Fouzia Rene MD Reason for [...] nucleated cells, <2000 RBCs 10% Polynuclear, 90% [place] nuc. Fluid cultures reportedly grew gram + [...] from the original note were not included. [facility] Clinical Pharmacy Service: Vancomycin Monitoring Consult [...] in sodium chloride 0.9 % 250 mL Wzqx2Jfx (Completed) 1,000 mg Once 10/08/2024 10/08/2024 Admin Instructions: Contact pharmacy if there is a question/concern of whether vancomycin should begiven based on serum drug levels. Use Tlkm3Lir Adapter - Mix Thoroughly Before Administration Route: Intravenous vancomycin (VANCOCIN) 1,500 mg in sodium chloride 0.9 % 250 mL Dqls4Kdp 1,500 mg Once 10/09/2024 10/10/2024 Admin Instructions: Contact pharmacy if there is a question/concern of whether vancomycin should begiven based on serum drug levels. Use Eyvl9Wcz Adapter - Mix Thoroughly Before Administration Route: [...] in sodium chloride 0.9 % 250 mL Zfby7Dwg 1,000 mg 250 mL/hr 10/06/24 1413 New [...] 10/07/2024 10:50 PM Giardia Cryptosporidium Antigens Final [id number] 10/07/2024 10:50 PM Ova and Parasite Comprehensive w/ Giardia/Crypto Final [id number] Feces 10/06/2024 1:04 AM #2 Blood culture-Peripheral site 2 Preliminary [id number] Peripheral 10/06/2024 1:04 AM #1 Blood culture-Peripheral site 1 Preliminary [id number] Peripheral --Vancomycin Concentrations-- Lab Results (Last 7 days) Today 0459 Yesterday 0536 10/07 0600 Vanc Rdm 11.0 16.0 21.1 --Assessment [...] for the consult. Jodi Ortiz PharmD Clinical Vacuum Conditioner Operator, Internal Medicine Preferred contact: [employer] Clinical Ihsggoy-Rl-Zmvc Pager: [phone] October 09, 2024 8:29 AM * Eileen Schroeder MD, PhD - 10/09/2024 8:00 AM EDT Department of Internal Medicine Daily Progress Note Chief Complaint / Reason for Follow-Up Julien Gilbert is a 39 y.o. male on hospital day 4. The principal reason for today's follow up visit is Acute kidney injury superimposed on CKD (CMS-HCC). KARENEON and father at bedside Pt fully conversational [...] at 10/08/2024 1:12 PM EDT US Duplex Oaa-Wbz-Txgypnb Comp Final Result IMPRESSION: ABDOMEN 1. Cirrhotic [...] from outside facility. Will engage with them daily([phone]. Ask to speak to a tech) about [...] no head imaging has been performed at [facility] -CT Head w/o contrast -Imaging showed no [...] Order Questions: Select Supplement: Boost-1 kcal/ml supplement ([facility] only) Code Status: Full Code Signed: [...] I reviewed the documentation by the medical bakery team leader and agree as documented. Any additions or clarifications are listed below. Daily plan was discussed with patient at bedside and questions addressed. Patient ID: Julien Gilbert is a 39 y.o. male currently admitted for Acute kidney injury superimposed on CKD ([facility]) Supplemental History/ ROS: No acute events overnight [...] for Acute kidney injury superimposed on CKD ([facility]) Active Problems: Anemia: S/p 1 unit PRBC from yesterday. Hemoglobin responded appropriately and remained stable. Will continue to monitor. Metabolic encephalopathy: Mostly resolved. Likely related to combination of hepatic, metabolic, andpossibly infectious insults. - Continue home lactulose and rifaximin Spontaneous Bacterial Peritonitis ([facility]): Cultures from OSH are growing gram- positive organisms.We continue to await speciation. He remains afebrile and vital signs have been stable. - Continue vancomycin and ceftriaxone for now. - Will follow-up on speciation and sensitivities. Decompensated cirrhosis ([facility]): Appreciate hepatology consult. He has started [...] another specialty or practice, other licensed professional (PT/OT/METHODS EXAMINER/RT), or a non-medical community professional: Nephrology, Hepatology Labs reviewed (1 pt each): CBC, CMP, INR & other daily labs Review of notes from a different specialty or different practice: Nephrology, Anesthesiology hepatology, * Gerri Peterson MD - 10/08/2024 1:40 PM EDT [facility] PROGRESS NOTE Name: Julien Gilbert CSN: [id number] Consulted by: Fouzia Rene MD Reason for [...] nucleated cells, <2000 RBCs 10% Polynuclear, 90% [place] nuc. Fluid cultures reportedly grew gram + [...] Other (See Comments) Became Manic Cosigned by iLno Soto MD at 10/08/2024 5:17 PM EDT [...] disease (ESRD) patient in a hospital based, [facility]-hospital based, or home setting. -At the [...] I have discussed this plan with the disability services coordinator and the liver transplant team. Cosigned [...] from the original note were not included. [facility] Clinical Pharmacy Service: Vancomycin Monitoring Consult [...] in sodium chloride 0.9 % 250 mL Pffx6Vvb 1,000 mg Once 10/08/2024 10/09/2024 Admin Instructions: Contact pharmacy if there is a question/concern of whether vancomycin should begiven based on serum drug levels. Use Sqxf3Wnq Adapter - Mix Thoroughly Before Administration Route: [...] 10/07/2024 10:50 PM Giardia Cryptosporidium Antigens Final [id number] 10/07/2024 10:50 PM Ova and Parasite Comprehensive w/ Giardia/Crypto In process [id number] Feces 10/06/2024 1:04 AM #2 Blood culture-Peripheral site 2 Preliminary [id number] Peripheral 10/06/2024 1:04 AM #1 Blood culture-Peripheral site 1 Preliminary [id number] Peripheral --Vancomycin Concentrations-- Lab Results (Last 7 [...] for the consult. Jodi Ortiz PharmD Clinical Vacuum Conditioner Operator, Internal Medicine Preferred contact: [employer] Clinical Mqjyhcr-Gj-Cvsx Pager: [phone] October 08, 2024 9:13 AM * Eileen [...] FREET4 0.74 09/03/2024 Diagnostic Studies US Duplex Bed-Xpa-Bfpmpqt Comp Final Result IMPRESSION: ABDOMEN 1. Cirrhotic [...] no head imaging has been performed at [facility] -CT Head w/o contrast -Imaging showed no [...] Order Questions: Select Supplement: Boost-1 kcal/ml supplement ([facility] only) Code Status: Full Code Signed: [...] I reviewed the documentation by the medical bakery team leader and agree as documented. Any additions or [...] home lactulose and rifaximin Spontaneous Bacterial Peritonitis ([facility]): Cultures from OSH are growing gram- positive organisms.We continue to await speciation. He remains afebrile and vital signs have been stable. - Continue vancomycin and ceftriaxone for now. - Will follow-up on speciation and sensitivities. Decompensated cirrhosis ([facility]): Appreciate hepatology consult. He has started [...] tomorrow NADIYA (acute kidney injury) on CKD ([facility]): Appreciate nephrology consult. Likely has hepatorenal syndrome. [...] Problem: Metabolic encephalopathy Active Problems: Decompensated cirrhosis ([facility]) Acute kidney injury superimposed on CKD ([facility]) Thrombocytopenia ([facility]) Renal mass, left Metabolic acidosis with normal [...] another specialty or practice, other licensed professional (PT/OT/METHODS EXAMINER/RT), or a non-medical community professional: Nephrology, Hepatology [...] Strictly monitor urine output No Indication for INTERNATIONAL LOGISTICS ANALYST Not a candidate for terlipressin per liver due to HE, liver ans kidney failure, on midodrine tid Liver transplant workup per GI/ Primary team, considering for SLK Thank you for allowing us to participate in this patient's care. Discussed with Consult Staff. Ignacio Queen MD Renal Fellow Pager # [phone] Chief Complaint No chief complaint on file. [...] concern for hepatorenal syndrome.` Patient came from [facility], paracentesis was performed yesterday on [...] TIBC , FERRITIN No results found for: FAGZEMEH04 , FOLATE Lab Results Component Value Date [...] <15 No results found for: MICROALBUR , ZHVB26IRL In addition to the above an extensive [...] 4.0 10/08/2024 Lab Results Component Value Date NMQM61C 7.1 (L) 10/08/2024 PLAN Continue IV albumin [...] AM Colten Huertas MD, KISHOR LIN FNKF physician asst Div. of Nephrology [facility] E-mail: [email or web address] This note was completely edited, written [...] from the original note were not included. [facility] Clinical Pharmacy Service: Vancomycin Monitoring Consult [...] AM #2 Blood culture-Peripheral site 2 Preliminary [id number] Peripheral 10/06/2024 1:04 AM #1 Blood culture-Peripheral site 1 Preliminary [id number] Peripheral --Vancomycin Concentrations-- Lab Results (Last 7 [...] for the consult. Jodi Ortiz PharmD Clinical Vacuum Conditioner Operator, Internal Medicine Preferred contact: [employer] Clinical Hsfneyj-Rc-Urcs Pager: [phone] October 07, 2024 5:01 PM * Yamile Paige, PT - 10/07/2024 11:45 AM EDT Physical Therapy Initial Assessment and Discharge Name: Julien Gilbert : 1985 Attending Physician: Fouzia Rene MD Admission Diagnosis: AMS Date: 10/07/2024 Room: [facility] Reviewed Pertinent hospital course: Yes Hospital Course [...] 11:33 AM EDT [facility] PROGRESS NOTE Name: Julien Gilbert CSN: [id number] Consulted by: Fouzia Rene MD Reason for [...] nucleated cells, <2000 RBCs 10% Polynuclear, 90% [place] nuc. Fluid cultures reportedly grewgram + rods. [...] system failures so Terlipressin not ideal for NADIAY. Will recommend Midodrine 10 mg TID. Will [...] Strictly monitor urine output No Indication for INTERNATIONAL LOGISTICS ANALYST Liver transplant workup per GI/ Primary team Thank you for allowing us to participate in this patient's care. Discussed with Consult Staff. Ignacio Queen MD Renal Fellow Pager # [phone] Chief Complaint No chief complaint on file. [...] concern for hepatorenal syndrome.` Patient came from [facility], paracentesis was performed yesterday on [...] TIBC , FERRITIN No results found for: [id number] , FOLATE Lab Results Component Value Date [...] <15 No results found for: MICROALBUR , SUAF15AQW In addition to the above an extensive [...] PHOS 4.2 10/07/2024 No results found for: ZBQZ52H PLAN Continue IV albumin Monitor renal panel [...] AM Colten Huertas MD, KISHOR LIN FNKF physician asst Div. of Nephrology [facility] E-mail: [email or web address] * Carmen Bernal, TONIE - 10/07/2024 11:09 AM EDT Occupational Therapy [...] patient verbalized understanding. OT Time Start Time: 0942 Stop Time: 958 Time Calculation (min): 17 [...] at 10/06/2024 2:33 AM EDT US Duplex Eha-Yuh-Miykyiy Comp (Results Pending) US Abdomen Complete (Results [...] no head imaging has been performed at [facility] -CT Head w/o contrast -Imaging showed no [...] Order Questions: Select Supplement: Boost-1 kcal/ml supplement ([facility] only) Code Status: Full Code Signed: [...] I reviewed the documentation by the medical bakery team leader and agree as documented. Any additions or [...] and mental status is improving. Decompensated cirrhosis ([facility]): Appreciate hepatology consult. He has started his transplant evaluation as an outpatient. We will follow-up with hepatology to discuss any inpatient testing that may need to be needed. - MELD labs daily - Continue home regimen with ursodiol, rifaximin and lactulose NADIYA (acute kidney injury) ([facility]): Appreciate nephrology consult. Likely has hepatorenal [...] needed for pain. Continue to monitor. Thrombocytopenia ([facility]) Renal mass, left CKD (chronic kidney disease) stage 4, GFR 15-29 ml/min ([facility]) Metabolic acidosis with normal anion gap and [...] another specialty or practice, other licensed professional (PT/OT/METHODS EXAMINER/RT), or a non-medical community professional: Nephrology, Hepatology Labs reviewed (1 pt each): CMP, CBC Test results reviewed (1 pt each): CXR, Head CT Review of notes from a different specialty or different practice: Nephrology, hepatology Use of parenteral controlled substances * Kiet Gardiner, PharmD - 10/06/2024 1:07 PM EDT Images from the original note were not included. [facility] Clinical Pharmacy Service: Vancomycin Monitoring Consult [...] AM #2 Blood culture-Peripheral site 2 Preliminary [id number] Peripheral 10/06/2024 1:04 AM #1 Blood culture-Peripheral site 1 Preliminary [id number] Peripheral --Vancomycin Concentrations-- Lab Results (Last 7 [...] US Retroperitoneal complete (Results Pending) US Duplex Efg-Lfb-Lmxsccc Comp (Results Pending) CT Head WO contrast [...] PM EDT Hospital Medicine Attending Supervision Note [facility] // [facility] Julien Gilbert was seen 10/06/24 [...] MD - 10/05/2024 2:42 PM EDT [facility] Department of Medicine TRANSFER CALL NOTE Location [facility] ED History of Present Illness Julien Gilbert [...] nearest ED, with plan to transfer to [facility] if needing admission. In the ED, [...] Studies: Na 129 K 4.2 Cl 101 Mynkhz35 BUN 62 (up from baseline) Cr 3.6 [...] Neuro: AOx3 AUC For Cath Indication(s) for Mysql Database Developer Visit: Visit Indicators: Suspected CAD 2. Chest Pain Symptom Assessment: Asymptomatic 3. Heart Failure: Yes Class II 4. CHSA Clinical Frailty Scale: Mildly Frail Sedation Plan: Moderate Sedation with Local Anesthesia Antibiotic prophylaxis is not indicated. Mani Quan Interventional Therapeutic Recreation Director Pager: [phone] [1] Patient Active Problem List Diagnosis Decompensated [...] Patient Active Problem List Diagnosis Decompensated cirrhosis ([facility]) Acute kidney injury superimposed on CKD (CMS-HCC) [...] Resource Strain: Low Risk (07/09/2024) Received from [facility] Overall Financial Resource Strain (CARDIA) [...] No Physical Activity: Unknown (07/14/2024) Received from [facility] Exercise Vital Sign Days of Exercise per Week: Patient unable to answer Minutes of Exercise per Session: Not on file Stress: Patient Unable To Answer (07/14/2024) Received from [facility] [employer] [place] [employer] - Occupational Stress Questionnaire Feeling of Stress : Patient unable to answer Social Connections: Patient Unable To Answer (07/14/2024) Received from [facility] Social Connection and Isolation Panel [NHANES] Frequency of Communication with Friends and Family: Patient unable to answer Frequency of Social Gatherings with Friends and Family: Patient unable to answer Attends [employer] Services: Patient unable to answer Active Member [...] 5,000 Units 3 times per day Bisi Akella, DO 5,000 Units at 10/09/24 1306 lactulose 20 g TID Bisi Akella, DO 20 g at 10/09/24 1305 levothyroxine 75 mcg QAM AC Bisi Akella, DO 75 mcg at 10/09/24 0801 methocarbamoL [...] 1418 pantoprazole 40 mg QAM AC Bisi Akella, DO 40 mg at 10/09/24 0802 potassium chloride ER 40 mEq Once Chari Vanegas MD rifAXIMin 550 mg BID Bisi Akella, DO 550 mg at 10/09/24 0802 sodium bicarbonate 1,300 mg TID Bisi Akella, DO 1,300 mg at 10/09/24 1305 sodium chloride 0.9 % 250 mL Once Tonya Henriquez MD thiamine HCl 100 mg Daily 0900 Bisi Akella, DO 100 mg at 10/09/24 0801 ursodioL 300 mg BID Bisi Akella, DO 300 mg at 10/09/24 0801 vancomycin intermittent/pulse dosing PLACEHOLDER ORDER UD PRN Magaña Abdulhai, MD zinc sulfate 220 mg Daily 0900 [...] values in this interval not displayed. Imaging: @[id number]@ I have personally reviewed the imaging and have noted the following: Large recanalized umbilical vein Perihilar varices Replaced right hepatic artery Splenomegaly Spontaneous splenorenal shunt Large volume ascites, No portal vein thrombosis Assessment/Plan: A 39 y.o. male with ETOH decompensated by ascites, hepatic encephalopathy,bleeding esophageal Varices. Use and allocation of SCD, FIRE EXTINGUISHER CHARGER, DCD and LDLT allografts discussed in detail. [...] from surgery (5%). I also explained the terminal block assembler risks of transplantation and immunosuppression including viral infection and cancer both solid organand lymphoma. Kemar Sahni MD, Fellow, Multiorgan Abdominal Transplant Surgery. [facility]. 10/09/2024 3:16 PM [1] Allergies [...] Ortiz MD - 10/06/2024 12:00 AM EDT [facility] Internal Medicine - History and [...] taken to Radiology overnight for imaging upload. [facility] performed a bedside paracentesis and sent studies for SBP analysis. Willcontact [facility] to see if labs have resulted. Review of Systems 14 pt ROS conducted and negative aside from that mentioned in above HPI Past Medical and Social History Lives in [place], [place] at bedside Notes that the patient [...] OSH Repeat labs pending on admission to [facility] Assessment & Plan Julien Gilbert is [...] AM EDT Hospital Medicine Attending Supervision Note [facility] // [facility] Julien Gilbert was seen 10/06/24 [...] confusion and lethargy. HE was seen at [facility] ED were CT head unremarkable and RUQ with gallstones, abdominal ascites diagnostic para done and started on empiric CTX. Labs remarkable at OSH for K 4.2 Cl 101 Zekqfx67 BUN 62 (up from baseline) Cr 3.6 [...] another specialty or practice, other licensed professional (PT/OT/METHODS EXAMINER/RT), or a non-medical community professional: ed team [...] Medicine Department of Internal Medicine Pager ID: [phone] 6:04 AM, 10/06/2024 documented in this encounter [...] CNP Vascular & Interventional Radiology 10/10/2024,1:55 PM [facility]: [phone]) * Lino Soto MD - 10/10/2024 12:06 PM EDT EGD Brief Op Note Julien Gilbert 10/05/2024 - 10/10/2024 Pre-op Diagnosis: Alcoholic cirrhosis of liver with ascites (CMS-HCC) [K70.31] Post-op Diagnosis: Portal gastropathy, Medium size, non-bleeding esophageal varices Procedure(s): EGD Surgeon(s): Lino Soto MD Anesthesia: MAC (Monitor Anesthesia Care) Staff: Fellow: Gerri Peterson MD Endoscopy Nurse: Kandice Castaneda RN Sanitation Officer: Diana Kemp Estimated Blood Loss: Minimal Specimens: Drains: There were no complications unless listed below. LINO SOTO MD Date: 10/10/2024 Time: 12:18 PM * Lino Soto MD - 10/10/2024 11:48 AM EDT [id number] Procedure Date: 10/10/2024 11:48 AM Patient Name: Julien Gilbert Date of : 1985 Admit Type: Inpatient Age: 39 Gender: Male Note Status: Finalized Attending MD: Lino Soto MD, [id number] Procedure: Upper GI endoscopy Indications: Gastroesopahgeal variceal [...] verified by the physician, the nurse, the control system computer scientist and the air and hydronic balancing technician in the pre-procedure area in the [...] to hypotension Procedure Code(s): --- Professional --- 98913, GC, Esophagogastroduodenoscopy, flexible, transoral; diagnostic, including collection of specimen(s) by brushing or washing, when performed (separate procedure) Diagnosis Code(s): --- Professional --- I85.00, Esophageal 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 All rights reserved. The codes documented in this report are preliminary and upon cost reduction engineer review may be revised to meet current [...] In: 12:10:16 PM Scope Out: 12:17:[address] [place] [address], [facility] * Gill Le RN - 10/09/2024 4:00 [...] this time. 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 Has not been on Humanco for mental health since stopping the cymbalta. [...] is and his father resides in [facility]. Patient earned a graduate degree and [...] or other abnormalities Cognition/Memory: short term and usp memory intact. Attention and concentration: is not [...] from the original note were not included. [facility] General Cardiology Consult Note Referring [...] at baseline or with provocation, shows no kbgkz-[id number]-szud atrial level shunt. - Pulmonary arteries: Systolic [...] 10/13/24, please keep NPO on 10/12/24 at SD Risks and benefits of new therapies added and new invasive and non-invasive procedures/diagnostic testing planned discussed with and understood by the patient/family who agree with the above plan. Plan discussed with the attending physician Dr. Blanco. Recommendations are preliminary until this note is co- signed by the attending. Follow up appointments with Cardiology can be scheduled by calling [phone]. Thank you for the opportunity to participate in this patient's care. Please call orpage with any questions. Leonor Garcia MD Therapeutic Recreation Director I have personally seen, examined, reviewed all [...] 0659 10/11/24 0700 - 10/12/24 0659 Shift 0853-6614 2497-8055 24 Hour Total 8105-1584 5704-8626 1415-8787 24 Hour Total INTAKE P.O. 2804 161 2448 P.O. 1352 129 4200 Boost (mL) - [facility] only 240 240 I.V.(mL/kg) 450(3.8) Volume [...] (See Comments) Became Manic * Bakari Wahl, [facility] - 10/10/2024 10:07 AM EDT Interventional Radiology [...] 36* 39* Recent Labs 10/09/24 0814 10/09/24 13010/10/24 0523 NA 134 134 135 K 3.4* [...] CNP Vascular & Interventional Radiology 10/10/2024,1:54 PM [facility]: [phone]) [1] Social History Tobacco Use Smoking Status [...] Attending: Daria Garcia Patient: Julien Gilbert CSN: [id number] Reason for Consult: CC: Abx management History [...] HE. He was born and raised in [facility] . No travel to [facility]. 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 [...] Resource Strain: Low Risk (07/09/2024) Received from [facility] Overall Financial Resource Strain (CARDIA) [...] No Physical Activity: Unknown (07/14/2024) Received from [facility] Exercise Vital Sign Days of Exercise per Week: Patient unable to answer Minutes of Exercise per Session: Not on file Stress: Patient Unable To Answer (07/14/2024) Received from [facility] [place] [facility] - Occupational Stress Questionnaire Feeling of Stress : Patient unable to answer Social Connections: Patient Unable To Answer (07/14/2024) Received from [facility] Social Connection and Isolation Panel [NHANES] Frequency of Communication with Friends and Family: Patient unable to answer Frequency of Social Gatherings with Friends and Family: Patient unable to answer Attends Anglican Services: Patient unable to answer Active Member [...] day. Qty: 60 tablet, Refills: 0 Comments: [facility] [place] [address] sodium bicarbonate 650 MG tablet Take 2 [...] Aphasia [R47.01] 10/06/2024 SBP (spontaneous bacterial peritonitis) ([facility]) [K65.2] 09/08/2024 Metabolic acidosis with normal anion gap and bicarbonate losses [E87.20] 09/03/2024 CKD (chronic kidney disease) stage 4, GFR 15-29 ml/min ([facility]) [N18.4] 09/03/2024 GERD (gastroesophageal reflux disease) [K21.9] 09/03/2024 Renal mass, left [N28.89] 08/18/2024 Thrombocytopenia ([facility]) [D69.6] Decompensated cirrhosis ([facility]) [K72.90, K74.60] 07/25/2024 NADIYA (acute kidney injury) ([facility]) [N17.9] 07/25/2024 Resolved Hospital Problems No resolved [...] Resource Strain: Low Risk (07/09/2024) Received from [facility] Overall Financial Resource Strain (CARDIA) [...] No Physical Activity: Unknown (07/14/2024) Received from [facility] Exercise Vital Sign Days of Exercise per Week: Patient unable to answer Minutes of Exercise per Session: Not on file Stress: Patient Unable To Answer (07/14/2024) Received from [facility] [place] [facility] - Occupational Stress Questionnaire Feeling of Stress : Patient unable to answer Social Connections: Patient Unable To Answer (07/14/2024) Received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 5:58 AM EDT us Eileen Schroeder MD, PhD LAB BLOOD ORDERABLES Final Result Performing Organization Address [facility] de Phone Number [facility] [address] * (ABNORMAL) Renal Function Panel w/EGFR [...] ORDERABLES Final Result [facility] [address] [place], [place] [address] * (ABNORMAL) CBC (10/12/2024 5:44 AM [...] review criteria approved by the laboratory medical pathology teacher. us Eileen Schroeder MD, PhD LAB BLOOD ORDERABLES Final Result [facility] [address] * CARISA Rhythm Strip - Scan (10/11/2024 [...] Final Result [facility] [address] * (ABNORMAL) Hepatic Function Panel (10/11/2024 3:02 [...] Final Result [facility] [address] * Magnesium (10/11/2024 3:02 AM EDT) Magnesium 2.0 1.5 - 2.5 mg/dL 10/11/2024 3:38 AM EDT [facility] Plasma 10/11/2024 3:02 AM EDT 10/11/2024 3:08 AM EDT us Eileen Schroeder MD, PhD LAB BLOOD ORDERABLES Final Result Performing Organization Address [facility] Co de Phone Number [facility] [address] * (ABNORMAL) Renal Function Panel w/EGFR [...] Final Result [facility] [address] [place] [id number] * (ABNORMAL) CBC (10/11/2024 3:02 AM [...] review criteria approved by the laboratory medical pathology teacher. us Eileen Schroeder MD, PhD LAB BLOOD ORDERABLES Final Result Performing Organization Address City/State/[facility] Co de Phone Number [facility] [address] * Vancomycin, random (10/11/2024 3:02 AM EDT) Vancomycin Random 13.4 ug/mL 10/11/2024 3:37 AM EDT [facility] Comment:Reference range not established for this test. Plasma 10/11/2024 3:02 AM EDT 10/11/2024 3:08 AM EDT us Jodi FreireD LAB BLOOD ORDERABLES Final Result [facility] [address] [place] [address], [facility] * IR Paracentesis incl imaging guide [...] diagnostic and therapeutic paracentesis. Bakari Wahl CNP, Assurance Manager Procedure and Findings: The procedure was [...] Using ultrasound guidance, a 10 cm, 5-F [employer] Centesis catheter was placed into the right [...] for diagnostic andtherapeutic paracentesis. Bakari Wahl CNP, Assurance Manager Procedure and Findings: The procedure was [...] Wahl CNP at 10/10/2024 3:31 PM EDT us Chari IRENEG IR ORDERABLES Final Result * Stress Testing Lab - scan (10/10/2024 3:08 PM EDT) us Scanning [facility] SCAN DOCS - NO RESULTS Final Res ult * (ABNORMAL) Body fluid cell count (10/10/2024 1:51 PM EDT) Color, Fluid Yellow(A) Colorless, Pale Yellow 10/10/2024 5:29 PM EDT [facility] Clarity, Fluid Clear 10/10/2024 5:29 [...] PM EDT 10/10/2024 3:[address] [facility] Gerri Peterson MD BODY FLUIDS AND STOOLS ORDERABL ES Final Result Performing Organization Address [facility] Co de Phone Number [facility] [address] * Body Fluid Culture plus Stain [...] PM EDT 10/10/2024 3:[address] [facility] Gerri Peterson MD MICROBIOLOGY - GENERAL ORDERABL ES Final Result [facility] [address] [place] [address], [facility] * UPPER GI ENDOSCOPY (10/10/2024 11:48 AM EDT) 10/10/2024 11:4 8 AM EDT Narrative [facility] - 10/10/2024 12:34 PM EDT [id number] Procedure Date: 10/10/2024 11:48 AM Patient Name: Julien Gilbert Date of : 1985 Admit Type: Inpatient Age: 39 Gender: Male Note Status: Finalized Attending MD: Lino Soto MD, [id number] Procedure: Upper GI endoscopy Indications: Gastroesopahgeal variceal [...] verified by the physician, the nurse, the control system computer scientist and the air and hydronic balancing technician in the pre-procedure area in the [...] to hypotension Procedure Code(s): --- Professional --- 26479, GC, Esophagogastroduodenoscopy, flexible, transoral; diagnostic, including collection of specimen(s) by brushing or washing, when performed (separate procedure) Diagnosis Code(s): --- Professional --- I85.00, Esophageal 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 All rights reserved. The codes documented in this report are preliminary and upon cost reduction engineer review may be revised to meet current [...] In: 12:10:16 PM Scope Out: 12:17:[address] [place] [address], [address] Provider Not In System PROCEDURE/MINOR SURGICAL ORDERABLES Final Result Performing Organization Address [facility] de Phone Number [facility] * (ABNORMAL) Protime-INR [...] BLOOD ORDERABLES Final Result Performing Organization Address [facility] de Phone Number [facility] [address] [place] [address], [place] * (ABNORMAL) Hepatic Function Panel (10/10/2024 [...] Result [facility] [address] [facility]. [address] * Magnesium (10/10/2024 5:23 AM EDT) Magnesium 1.9 1.5 - 2.5 mg/dL 10/10/2024 6:21 AM EDT [facility] Plasma 10/10/2024 5:23 AM EDT 10/10/2024 5:50 AM EDT Eileen Schreoder MD, PhD LAB BLOOD ORDERABLES Final Result [facility] [address] [place] [address], [facility] * (ABNORMAL) Renal Function Panel w/EGFR [...] ORDERABLES Final Result [facility] [address] * (ABNORMAL) CBC (10/10/2024 5:23 AM [...] BLOOD ORDERABLES Final Result Performing Organization Address [facility]/ZIP Co de Phone Number [address] * Vancomycin, random (10/10/2024 5:23 AM EDT) Vancomycin Random 16.4 ug/mL 10/10/2024 6:22 AM EDT [facility] Comment:Reference range not established for this test. Plasma 10/10/2024 5:23 AM EDT 10/10/2024 5:51 AM EDT us Jodi FreireD LAB BLOOD ORDERABLES Final Result Performing Organization Address [facility] de Phone Number [facility] [address] * ECHO STRESS W/ CONTRAST (10/09/2024 4:37 PM EDT) Anatomical Region Laterality Modality Chest Ultrasound 10/09/2024 2:40 PM EDT Narrative 10/09/2024 6:45 PM EDT * [facility]* [address] [place] [address] Stress Echocardiogram Patient: Julien Gilbert Room: 8142 Height: 76in MR Number: [id number] : 1985 Weight: 262lb Account: [id number] Gender: M BP: 125 / 77 Study Date: 10/09/2024 Age: 39 BSA: 2.48m^2 Referring physician: Gerri Peterson Interpreting physician: Tonya Henriquez MD FELLOW Lisa Jha MD PERFORMING Tonya Henriquez MD CAR MANAGER [employer] ORDERING Gerri Peterson REFERRING Gerri Peterson ATTENDING Fouzia Rene ADMITTING RussAngie barbour Procedure:STRESS ECHO - PHARMACOLOGIC Order: Indications: Pre-Operative [...] was augmented by the addition of hand skin care instructor and leg lifts. The infusion was terminated [...] at baseline or with provocation, shows no awelx-nw-dabf atrial level shunt. - Pulmonary arteries: Systolic [...] at baseline or with provocation, shows no hrege-an-jtmp atrial level shunt. Pulmonary artery: - Systolic [...] at baseline or with provocation, shows no ywlkk-sx-dmgd atrial level shunt. Pericardium: - There is [...] peak heart rate and blood pressure was 94243pl Hg/min. Stress testing did not produce any [...] Reviewed and confirmed by Tonya Henriquez MD [id number] Procedure Note Tonya Henriquez MD - 10/09/2024 * [facility]* [address] [place] [address] Stress Echocardiogram Patient: Julien Gilbert Room: 8142 Height: 76in MR Number: [id number] : 1985 Weight: 262lb Account: [id number] Gender: M BP: 125 / 77 Study Date: 10/09/2024 Age: 39 BSA: 2.48m^2 Referring physician: Gerri Peterson Interpreting physician: Tonya Henriquez MD FELLOW Lisa Jha MD PERFORMING Tonya Henriquez MD CAR MANAGER [employer] ORDERING Gerri Peterson REFERRING Gerri Peterson ATTENDING Fouzia Rene ADMITTING Angie Blanchard Procedure:STRESS ECHO - PHARMACOLOGIC Order: Indications: Pre-Operative Clearance (Z01.818). PMH: EtOH Use Disorder. Risk factors: Hypertension. Dyslipidemia. Study data: Height: 76in. 193cm. Weight: 262lb. 118.8kg. The previousstudy was not available, so comparison was made to the report of 07/15/2024. Study status: Routine. Procedure[facility]. [...] was augmented by the addition of hand skin care instructor and leg lifts. The infusion was terminated [...] at baseline or with provocation, shows no oclar-hi-pgir atrial level shunt. - Pulmonary arteries: Systolic [...] study at baseline or with provocation, showsno mdzjm-yu-hnie atrial level shunt. Pulmonary artery: - Systolic [...] at baseline or with provocation, shows no oolrk-ho-bmlp atrial level shunt. Pericardium: - There is [...] heart rate). The maximal predicted heart rate [id number]. The target heart rate was 152bpm. The target heart rate was achieved.The heart rate response to stress is normal. There is a normal resting blood pressure with an appropriate response to stress. The rate-pressureproduct for the peak heart rate and blood pressure was 88005ko Hg/min. Stress testing did not produce any [...] Reviewed and confirmed by Tonya Henriquez MD [id number] us Gerri Peterson MD CV ECHO ORDERABLES [...] [facility] [address] [place] [address], [facility] * (ABNORMAL) Renal Function Panel w/EGFR, [...] ORDERABLES Final Resu lt Performing Organization Address [facility]/ZIP Co de Phone Number [facility] [address] * Prepare RBC, leukoreduced, 1 Units (10/09/2024 6:16 AM EDT) Product Code [id number] HCLL Unit Number [id number] HCLL Dispense Status Presumed Transfused_PT HCLL Blood Expiration Date [id number] [facility] Coding System [id number] [facility] Blood Bank Product Eileen Schroeder MD, PhD [...] BLOOD ORDERABLES Final Result Performing Organization Address [facility]/ZIP Co de Phone Number [facility] [address] [facility] * (ABNORMAL) Hepatic Function Panel (10/09/2024 [...] ORDERABLES Final Result Performing Organization Address City/[facility]/ZIP Co de Phone Number [facility] [address] [facility]. [address] * Magnesium (10/09/2024 4:59 AM EDT) Magnesium 1.8 1.5 - 2.5 mg/dL 10/09/2024 6:42 AM EDT [facility] Plasma 10/09/2024 4:59 AM EDT 10/09/2024 5:57 AM EDT us Eileen Schroeder MD, PhD LAB BLOOD ORDERABLES Final Result [facility] [address] [place], [place] [address] * (ABNORMAL) Renal Function Panel w/EGFR (10/09/2024 [...] - 305 mOsm/kg 10/09/2024 6:42 AM EDT [facility] EGFR 26 10/09/2024 6:42 AM [...] Final Result [facility] [address] [place] [address], [facility] * (ABNORMAL) CBC (10/09/2024 4:59 AM [...] ORDERABLES Final Result Performing Organization Address City/[facility]/ZIP Co de Phone Number [facility] [address] * Renal Tx Recipient (10/09/2024 4:59 AM EDT) Pathologist [facility] Renal Transplant Recipient The request and specimen(s) for this test have been received and transported to the [facility] at [address] [place] [address]. The [facility] will report results directly to the client. 10/09/2024 7:26 AM EDT [facility] Blood 10/09/2024 4:59 AM EDT 10/09/2024 7:26 AM EDT us Aaron Gonzalez MD LAB BLOOD ORDERABLES Final Resu lt [facility] [address] * Vancomycin, random (10/09/2024 4:59 AM EDT) [facility] Vancomycin Random 11.0 ug/mL 10/09/2024 6:33 AM EDT [facility] Comment:Reference range not established for this test. Plasma 10/09/2024 4:59 AM EDT 10/09/2024 5:56 AM EDT us Jodi Ortiz PharmD LAB BLOOD ORDERABLES Final Result Performing Organization Address [facility]/State/ZIP Co de Phone Number [facility] [address] [place] [address], [facility] * (ABNORMAL) CBC (10/08/2024 5:52 PM [...] ORDERABLES Final Result Performing Organization Address City/[facility]/ZIP Co de Phone Number [facility] [address] [place] [address], [facility] * Transfuse RBC Has consent been obtained? Yes; Transfusion Rate: Per dept routine (10/08/2024 1:17 PM EDT) us Eileen Schroeder MD, PhD NURSING TREATMENT ORD ERABLES - BLOOD ADMIN Final Result Performing Organization Address City/[facility]/ZIP Co de Phone Number EXTERNAL * Transfuse RBC Has consent been obtained? Yes; Transfusion Rate: Per dept routine, 1 Units (10/08/2024 1:17 PM EDT) us Eileen Schroeder MD, PhD NURSING TREATMENT ORD ERABLES - BLOOD ADMIN Final Result Performing Organization Address City/[facility] Co de Phone Number EXTERNAL * [...] ORDERABLES Final Resu lt Performing Organization Address [facility]/ZIP Co de Phone Number [facility] [address] * (ABNORMAL) Hemoglobin A1C (10/08/2024 10:25 AM EDT) Hemoglobin A1C 3.7(L) 4.0 - 5.6 % 10/09/2024 1:22 PM EDT [facility] Comment: Hemoglobin A1c Interpretation Guidelines: [...] ORDERABLES Final Resu lt Performing Organization Address [facility] Co de Phone Number [facility] [address] [facility]. [address] * (ABNORMAL) Vitamin D 25 Hydroxy (10/08/2024 10:25 AM EDT) Vit D, 25-Hydroxy 7.1(L) 30.0 - 100.0 ng/mL 10/08/2024 11:36 AM EDT [facility]ALTH [facility] Comment: Vitamin D deficiency has been defined by the [place] [employer] (IOM) and an Endocrine Society practice guideline as a level of serum 25-OH Vitamin D less than 20 ng/mL. The Endocrine Society went on to further define Vitamin D insufficiency as a level between 21-29 ng/mL. 1) IOM. 2011 Dietary reference intakes for calcium and D. Majano D.C: The National Academies Press 2) Saturnino Nicole [place], Tory MILLER, et al. Evaluation, treatment, and prevention of Vitamin D deficiency: an Endocrine Society clinical practice guideline. JCEM. 2010; 967):1911-30. Serum 10/08/2024 10:2 5 AM EDT 10/08/2024 10:49 AM EDT Gerri Peterson MD LAB BLOOD ORDERABLES Final Resu lt Performing Organization Address [facility] de Phone Number [facility] [address] * Iron Studies (Iron + TIBC) [...] Final Resu lt Performing Organization Address City/[facility] Co de Phone Number [facility] [address] * (ABNORMAL) Ferritin (10/08/2024 10:25 AM EDT) Ferritin 706.9(H) 23.9 - 336.2 ng/mL 10/08/2024 11:35 AM EDT [facility] Serum 10/08/2024 10:2 5 AM EDT 10/08/2024 10:49 AM EDT Gerri Peterson MD LAB BLOOD ORDERABLES Final Resu lt [facility] [address] * QuantiFERON TB2 Ag (10/08/2024 10:25 AM EDT) QuantiFERON TB2 Ag Value 0.07 10/10/2024 10:41 AM EDT [facility] Plasma 10/08/2024 10:2 5 AM EDT 10/08/2024 11:05 AM EDT us Gerri Peterson MD LAB BLOOD ORDERABLES Final Resu lt Performing Organization Address [facility]/ZIP Co de Phone Number [facility] [address] * QuantiFERON TB1 Ag (10/08/2024 10:25 AM EDT) QuantiFERON TB1 Ag Value 0.06 10/10/2024 10:41 AM EDT [facility] Plasma 10/08/2024 10:2 5 AM EDT 10/08/2024 11:05 AM EDT us Gerri Peterson MD LAB BLOOD ORDERABLES Final Resu lt [facility] [address] * QuantiFERON Nil (10/08/2024 10:25 AM EDT) QuantiFERON Nil 0.06 10:41 AM EDT [facility] Plasma 10/08/2024 10:2 5 AM EDT 10/08/2024 11:05 AM EDT us Gerri Peterson MD LAB BLOOD ORDERABLES Final Resu lt [facility] [address] [place] [id number] * QuantiFERON Mitogen (10/08/2024 10:25 AM EDT) QuantiFERON Interpretation Negative Negative 10/10/2024 10:41 AM EDT [facility] Comment:Negative result geovanny cates M. tuberculosis infection is NOT likely. Negative results do not preclude tuberculosis infection (especially in immunosuppressed patients). Negative results have a TB antigen minus Nil value less than 0.35 IU/mL. In cases with high suspicion of disease, retesting or additional testing with medical evaluation may be useful. QuantiFERON Mitogen 4.87 10/10 10:41 AM EDT [facility] [...] Resu lt [facility] [address] [facility] [place], [place] [address] * Reticulocyte Count, Auto (10/08/2024 7:41 AM [...] ORDERABLES Final Res ult Performing Organization Address [facility] Co de Phone Number [facility] [address] * (ABNORMAL) Haptoglobin (10/08/2024 7:41 AM EDT) Haptoglobin <30(L) 44 - 215 mg/dL 10/08/2024 8:53 AM EDT [facility] Serum 10/08/2024 7:41 AM EDT 10/08/2024 7:51 AM EDT Eileen Schroeder MD, PhD LAB BLOOD ORDERABLES Final Result Performing Organization Address [facility] Co de Phone Number [facility] [address] * (ABNORMAL) CBC - Post Transfusion [...] - 11.5 fL 10/08/2024 8:34 AM EDT [facility] Whole Blood 10/08/2024 7:41 AM EDT 10/08/2024 7:52 AM EDT [facility] - 10/08/2024 8:34 AM EDT Post-transfusion Eileen Schroeder MD, PhD LAB BLOOD ORDERABLES Final Result [facility] [address] * Antibody Screen (10/08/2024 7:41 AM EDT) Antibody Screen Negative 10/08/2024 8:26 AM EDT [facility] Blood 10/08/2024 7:41 AM EDT 10/08/2024 7:57 AM EDT [facility] - 10/08/2024 8:32 AM EDT Testing performed by [facility] Transfusion Service Eileen Schroeder MD, PhD BLOOD BANK TEST ORDER PAL Final Result [facility] [address] * ABO/Rh (10/08/2024 7:41 AM EDT) ABO Grouping O 10/08/2024 8:14 AM EDT [facility] Rh Type Positive 10/08/2024 8:14 AM EDT [facility] Blood 10/08/2024 7:41 AM EDT 10/08/2024 7:57 AM EDT Eileen Schroeder MD, PhD BLOOD BANK TEST ORDER PAL Final Result Performing Organization Address City/[facility]/ZIP Co de Phone Number [facility] [address] * (ABNORMAL) Lactate dehydrogenase (10/08/2024 5:36 AM EDT) LD 102(L) 110 - 270 U/L 10/08/2024 8:20 AM EDT [facility] Plasma 10/08/2024 5:36 AM EDT 10/08/2024 7:58 AM EDT Angie Blanchard MD LAB BLOOD ORDERABLES Final Res ult Performing Organization Address [facility] Co de Phone Number [facility] [address] [facility] * (ABNORMAL) Protime-INR (10/08/2024 5:36 AM [...] BLOOD ORDERABLES Final Result Performing Organization Address [facility] Co de Phone Number [facility] [address] * (ABNORMAL) Hepatic Function Panel (10/08/2024 5:36 AM EDT) Total Bilirubin 7.7(H) 0.0 - 1.5 mg/dL 10/08/2024 6:25 AM EDT [facility] Bilirubin, Direct 4.28(H) 0.00 - [...] BLOOD ORDERABLES Final Result Performing Organization Address [facility] Co de Phone Number [facility] [address] * Magnesium (10/08/2024 5:36 AM EDT) Magnesium 1.9 1.5 - 2.5 mg/dL 10/08/2024 6:25 AM EDT [facility] Plasma 10/08/2024 5:36 AM EDT 10/08/2024 5:52 AM EDT Eileen Schroeder MD, PhD LAB BLOOD ORDERABLES Final Result [facility] [address] [place] [address], [facility] * (ABNORMAL) Renal Function Panel w/EGFR (10/08/2024 [...] AM EDT [facility] EGFR 10/08/2024 6:25 AM EDT [facility] [...] as >90mL/min/1.73m2. Reference: Luis Eduardo Cohn, Talia Ruiz, Olivia DC, Emerita ND, Madelyn [place], Felicia [place], et al. A Unifying Approach for GFR Estimation: Recommendations of the NKF-ASN Task Force on Reassessing the inclusion of Race in Diagnosing Kidney Disease. Am J Kidney Dis. 2020. Plasma 10/08/2024 5:36 AM EDT 10/08/2024 5:52 AM EDT us Eileen Schroeder MD, PhD LAB BLOOD ORDERABLES Final Result [facility] [address] [place] [address], [facility] * (ABNORMAL) CBC (10/08/2024 5:36 AM [...] review criteria approved by the laboratory medical pathology teacher. us Eileen Schroeder MD, PhD LAB BLOOD ORDERABLES Final Result [facility] [address] * Vancomycin, random (10/08/2024 5:36 AM EDT) Vancomycin Random 16.0 ug/mL 10/08/2024 6:20 AM EDT [facility] Comment:Reference range not established for this test. Plasma 10/08/2024 5:36 AM EDT 10/08/2024 5:52 AM EDT us Jodi FreireD LAB BLOOD ORDERABLES Final Result Performing Organization Address [facility]/ZIP Co de Phone Number [facility] [address] * Urine Drug Confirmation (10/07/2024 10:50 PM EDT) BARBITURATES NOT PRESENT 10/09/2024 1:33 PM EDT [facility] BENZODIAZEPINES PRESENT 1:33 PM EDT [facility] Nordiazepam 3 ng/mL 10/09/2024 1:33 PM EDT [facility] Temazepam 6 ng/mL 10/09/2024 1:33 PM EDT [facility] CANNABINOIDS NOT PRESENT 10/09/2024 1:33 PM EDT [facility] MEDIA RELATIONS DIRECTOR STIMULANTS NOT PRESENT 1:33 PM EDT [facility] OPIOID ANALGESICS PRESENT 025 1:33 PM EDT [facility] [...] URINE ORDERABLES Final Result Performing Organization Address [facility] Co de Phone Number [facility] [address] * Giardia Cryptosporidium Antigens (10/07/2024 10:50 [...] S Final Result Performing Organization Address City/[facility]/ZIP Co de Phone Number [facility] [address] * (ABNORMAL) Urine Drug Screen Reflex to Confirmation (10/07/2024 10:50 PM EDT) Amphetamine, 500 ng/mL Cutoff Negative Negative 10/08/2024 3:00 AM EDT [facility] Barbiturates UR, [...] eveloped and its performance characteristics determined by [facility] which is certified under the [...] eveloped and its performance characteristics determined by [facility] which is certified under the [...] ORDERABLES Final Result [facility] [address] [place] [address], [facility] * Comprehensive Drug Screen (10/07/2024 10:50 PM EDT) Creatinine, Ur CANCELED mg/dL 10/08/2024 7:09 AM EDT [facility] Comment:The released value 8 7.30 was canceled by YAQUELIN on 10/08/2024 07:09 BARBITURATES CANCELED [facility] Butalbital CANCELED [facility] Phenobarbital CANCELED [facility] Secobarbital CANCELED [facility] BENZODIAZEPINES CANCELED [facility] Alprazolam CANCELED [facility] Clonazepam CANCELED [facility] Diazepam CANCELED [facility] Alpha-Hydroxyalprazo mcknight CANCELED [facility] Lorazepam CANCELED [facility] Midazolam CANCELED [facility] Nordiazepam CANCELED [facility] Oxazepam CANCELED [facility] Temazepam CANCELED [facility] CANNABINOIDS CANCELED [facility] THC-COOH CANCELED [facility] MEDIA RELATIONS DIRECTOR STIMULANTS CANCELED [facility] Cocaine Metabolite(benzoylec gonine) CANCELED [facility] Amphetamine CANCELED [facility] Methamphetamine CANCELED [facility] MDA CANCELED [facility] MDEA CANCELED [facility] Phencyclindine (PCP) CANCELED [facility] OPIOID ANALGESICS CANCELED [facility] Heroin Metabolite(6-RAMONA) CANCELED [facility] Codeine CANCELED [facility] Morphine CANCELED [facility] Hydrocodone CANCELED [facility] Hydromorphone CANCELED [facility] Oxycodone CANCELED [facility] Oxymorphone CANCELED [facility] Meperidine CANCELED [facility] Normeperidine [facility]ELED [facility] Methadone CANCELED [facility] Methadone Metabolite (EDDP) [facility]ELED [facility] Tramadol [facility] Fentanyl [facility] Norfentanyl [facility] Sufentanil [facility] OPIOID ANTAGONISTS CANCELED [facility] Buprenorphine [facility] Norbuprenorphine CANCELED [facility] Naltrexone [facility] Naloxone [facility] SEDATIVES/MUSCLE RELAXANTS [facility] Carisoprodol [facility] Meprobamate [facility] TRICYCLIC ANTIDEPRESSANTS [facility] Amitriptyline [facility] Clomipramine [facility] Desipramine [facility] Doxepin [facility] Imipramine CANCELED [facility] Nortriptyline [facility] Urine Creatinine CANCELED mg/dL [facility] Nitrite CANCELED [facility] Glutaraldehyde [facility]CELED [facility] pH CANCELED 10/08/2024 7:09 AM EDT [facility] Comment:The released value 5 .6 was canceled by YAQUELIN on 10/08/2024 07:09 Specific Clancy CANCELED 10/09/19 7:09 AM EDT [facility] Comment:The released value 1 .009 was canceled by MABLEE on 10/08/2024 07:09 Bleach CANCELED [facility] Pyridinium Chlorochromate CANCELED [facility] Urine 10/07/2024 10:5 0 PM EDT 10/08/2024 2:07 AM EDT [facility] - 10/08/2024 7:09 AM EDT See accn [id number] us Gerri Peterson MD URINE ORDERABLES Edited Result - Final [facility] [address] [place], [place] [address] * Ova and Parasite Comprehensive w/ Giardia/Crypto (10/07/2024 10:50 PM EDT) O & P Method: Concentration and Trichrome Stain [facility] Results No Amoeba, Ova, Or [...] Result [facility] [address] [facility]. [place] [id number] * Enteric Pathogen Panel (10/07/2024 10:50 [...] S Final Result Performing Organization Address City/[facility]/ZIP Co de Phone Number [facility] [address] * Hepatitis C Antibody (10/07/2024 6:38 [...] ORDERABLES Final Resu lt Performing Organization Address [facility] Co de Phone Number [facility] [address] * Hepatitis B Surface Antibody, Quantitati [...] Final Resu lt Performing Organization Address City/[facility]/ZIP Co de Phone Number [facility] [address] * Hepatitis B surface antigen (10/07/2024 6:38 PM EDT) Hep B Surface Ag Nonreactive Nonreactive 10/07/2024 7:51 PM EDT [facility] Comment:Health Department no tified in accordance with reportable infectious disease guidelines. Serum 10/07/2024 6:38 PM EDT 10/07/2024 6:52 PM EDT [facility] - 10/07/2024 7:51 PM EDT Specimen is considered negative for HBsAg. Gerri Peterson MD LAB BLOOD ORDERABLES Final Resu lt Performing Organization Address City/[facility]/ZIP Co de Phone Number [facility] [address] [place] [address]. [address] * Hepatitis A Antibody Total (10/07/2024 6:38 PM EDT) Anti-HAV Total (IgG + IgM) Nonreactive 10/07/2024 7:53 PM EDT [facility] Serum 10/07/2024 6:38 PM EDT 10/07/2024 6:52 PM EDT [facility] - 10/07/2024 7:53 PM EDT HAV antibodies not detected Gerri Peterson MD LAB BLOOD ORDERABLES Final Resu lt [facility] [address] * Hepatitis A IgM (10/07/2024 6:38 PM EDT) Hep A IgM Nonreactive Nonreactive 10/07/2024 7:46 PM EDT [facility] Serum 10/07/2024 6:38 PM EDT 10/07/2024 6:52 PM EDT [facility] - 10/07/2024 7:46 PM EDT IgM anti-HAV not detected. Does not exclude the possibility of exposure to or infection with HAV. Levels of IgM anti-HAV may be below the cut-off in early infection. us Gerri Peterson MD LAB BLOOD ORDERABLES Final Resu lt [facility] [address] [place] [address], [facility] * (ABNORMAL) Lipid Profile (10/07/2024 6:37 [...] Final Resu lt [facility] [address] [place] [address], [facility] * (ABNORMAL) Alpha 1 Antitrypsin AAT [...] normal , producing normal serum levels of [id number] inhibitor and not associated with clinical disease. [...] 10/10/2024 4:08 PM EDT PERFORMED AT: [facility] [address] [id number] LAUNDRY LABORER: Bassam Khalil, PhD PHONE: [phone] PERFORMED AT: [facility] [address] [id number] LAUNDRY LABORER: Mandy Abdul MD PHONE: [phone] Gerri Peterson MD LAB BLOOD ORDERABLES Final Resu lt [facility] [address] * (ABNORMAL) CMV IgG Antibody (10/07/2024 6:37 PM EDT) CMV IgG Positive(A ) Negative 10/07/2024 8:26 PM EDT [facility] CMV IGG NUM 8.40(H) 0.00 - 0.59 U/mL 10/07/2024 8:26 PM EDT [facility] Serum 10/07/2024 6:37 PM EDT 10/07/2024 6:[address] [facility] Gerri Peterson MD LAB BLOOD ORDERABLES Final Resu lt [facility] [address] * HIV-1 and HIV-2 Antibodies w Reflex (10/07/2024 6:37 PM EDT) HIV 1+2 AB/AGN Nonreactive Nonreactive 10/07/2024 7:54 PM EDT [facility] Serum 10/07/2024 6:37 PM EDT 10/07/2024 7:06 PM EDT Narrative [facility] - 10/07/2024 7:54 PM EDT \HIVRNR Gerri Peterson MD LAB BLOOD ORDERABLES Final Resu lt [facility] [address] [facility] * TSH (Thyroid Stimulating Hormone) (10/07/2024 6:37 PM EDT) Pathologist [facility] TSH 0.81 0.45 - 4.12 uIU/mL 10/07/2024 8:17 PM EDT [facility] Serum 10/07/2024 6:37 PM EDT 10/07/2024 6:50 PM EDT Gerri Peterson MD LAB BLOOD ORDERABLES Final Resu lt Performing Organization Address [facility] Co de Phone Number [facility] [address] * Katie-Watkins virus early antigen antibody, IgG (10/07/2024 6:37 PM EDT) [facility] EBV Early Antigen Ab, IgG <9.0 0.0 - 8.9 U/mL 10/09/2024 2:16 PM EDT [facility] Comment: Negative < 9.0 Equivocal 9.0 - 10.9 Positive >10.9 Serum Frozen 10/07/2024 6:37 PM EDT 10/09/2024 3:07 PM EDT Narrative [facility] - 10/09/2024 3:07 PM EDT PERFORMED AT: [facility] [id number] LAUNDRY LABORER: Bassam Khalil, PhD PHONE: [phone] Gerri Peterson MD LAB BLOOD ORDERABLES Final Resu lt Performing Organization Address City/[facility]/ZIP Co de Phone Number [facility] [address] * (ABNORMAL) Varicella zoster antibody, IgG (10/07/2024 6:37 PM EDT) Pathologist [facility] Varicella IgG Positive( A) Negative S/CO 10/07/2024 [...] ORDERABLES Final Resu lt Performing Organization Address [facility] Co de Phone Number [facility] [address] [place] [address] * Toxoplasma gondii antibody, IgG (10/07/2024 6:37 PM EDT) Toxoplasma Gondii IgG <3.0 0.0 - 7.1 IU/mL 10/09/2024 7:53 AM EDT [facility] Comment: Negative <7.2 Equivocal 7.2 - 8.7 Positive >8.7 Serum 10/07/2024 6:37 PM EDT 10/09/2024 8:07 AM EDT Narrative [facility] - 10/09/2024 8:07 AM EDT PERFORMED AT: [facility] [id number] LAUNDRY LABORER: Bassam hKalil, PhD PHONE: [phone] Gerri Peterson MD LAB BLOOD ORDERABLES Final Resu lt Performing Organization Address [facility] Co de Phone Number [facility] [address] * Syphilis Screening (Trepia) (10/07/2024 6:37 PM EDT) Treponema Pallidum Negative Negative 10/07/2024 8:27 PM EDT [facility] Comment: No serological evidence of infection with Treponema pallidum (incubating or early primary syphilis cannot be excluded). Serum 10/07/2024 6:37 PM EDT 10/07/2024 6:50 PM EDT Gerri Peterson MD LAB BLOOD ORDERABLES Final Resu lt Performing Organization Address [facility] Co de Phone Number [facility] [address] * Strongyloides Ab (10/07/2024 6:37 PM EDT) Strongyloides Ab Negative Negative 10/11/19 11:51 AM EDT [facility] Serum 10/07/2024 6:37 PM EDT 10/10/2024 12:07 PM EDT Narrative [facility] - 10/10/2024 12:07 PM EDT PERFORMED AT: [address] [id number] LAUNDRY LABORER: Mandy Abdul MD PHONE: [phone] Gerri Peterson MD LAB BLOOD ORDERABLES Final Resu lt Performing Organization Address [facility] de Phone Number [facility] [address] * Phosphatidylethanol Confirmation, B (10/07/2024 6:37 [...] its performance characteristics determined by [facility] in a manner consistent with CLIA requirements. This test has not been cleared or approved by the U.S. Food and Drug Administration. Test Performed by: [facility] [place] [address] Strategic Account Director: Kathy Ortiz Ph.D.; CLIA# [id number] Whole Blood 10/07/2024 6:37 PM EDT 10/10/2024 10:42 AM EDT us Gerri Peterson MD LAB BLOOD ORDERABLES Final Resu lt [facility] [address] [place] [address], [facility] * (ABNORMAL) MMR(IgG) Panel (Measles, Mumps, [...] Final Resu lt Performing Organization Address City/[facility]/ZIP Co de Phone Number [facility] [address] [place] [address]. [address] * IgA (10/07/2024 6:37 PM EDT) IgA 227.0 70.0 - 400.0 mg/dL 10/08/2024 11:07 AM EDT [facility] Comment:Please interpret the se findings in conjunction with clinical findings, protein electrophoresis, and immunotyping/immunofixation results. Serum 10/07/2024 6:37 PM EDT 10/07/2024 6:50 PM EDT Gerri Peterson MD LAB BLOOD ORDERABLES Final Resu lt [facility] [address] [facility] * Ethanol, Serum (10/07/2024 6:37 PM EDT) Ethanol <10 0 - 10 mg/dL 10/07/2024 8:36 PM EDT [facility] Serum 10/07/2024 6:37 PM EDT 10/07/2024 6:50 PM EDT Gerri Peterson MD LAB BLOOD ORDERABLES Final Resu lt Performing Organization Address [facility]/ZIP Co de Phone Number [facility] [address] * ABO/Rh - Second (10/07/2024 6:37 [...] ORDERABLES Denisse l Result Performing Organization Address [facility] Co de Phone Number [facility] [address] * ABO/Rh- Initial (10/07/2024 6:37 PM EDT) ABO Grouping O 10/07/2024 7:59 PM EDT [facility] Rh Type Positive 10/07/2024 7:59 PM EDT [facility] Blood 10/07/2024 6:37 PM EDT 10/07/2024 7:25 PM EDT Gerri Peterson MD BLOOD BANK TEST ORDERABLES Denisse l Result Performing Organization Address [facility]/ZIP Co de Phone Number [facility] [address] * X-ray Mandible minimum 4-views (10/07/2024 [...] EXAM: US ABDOMEN COMPLETE EXAM: US DUPLEX [id number] COMPLETE INDICATION: elevated bilirubin COMPARISON: Ultrasound and [...] EXAM: US ABDOMEN COMPLETE EXAM: US DUPLEX [id number] COMPLETE INDICATION: elevated bilirubin COMPARISON: Ultrasound and [...] 4:26 PM EDT us Bisi Mary DO [facility] ORDERABLES Final Result * US Duplex Jax-Vza-Heeghcn Comp (10/07/2024 3:48 PM EDT) Anatomical Region [...] EXAM: US ABDOMEN COMPLETE EXAM: US DUPLEX [id number] COMPLETE INDICATION: elevated bilirubin COMPARISON: Ultrasound and [...] EXAM: US ABDOMEN COMPLETE EXAM: US DUPLEX [id number] COMPLETE INDICATION: elevated bilirubin COMPARISON: Ultrasound and [...] 4:26 PM EDT us Bisi Hernandez DO G US ORDERABLES Final Result * CARISA Rhythm Strip - Scan (10/07/2024 3:30 PM EDT) us Scanning Uchhim SCAN DOCS - NO RESULTS Final Res ult * (ABNORMAL) Protime-INR (10/07/2024 6:00 AM EDT) Protime 26.9(H) 12.1 - 15.1 seconds 10/07/2024 6:55 AM EDT [facility] INR 2.4(H) 0.9 - 1.1 10/07/2024 6:55 AM EDT [facility] Comment: RECOMMENDED THERAPEUTIC RANGES USING INR : Stable oral anticoagulant therapy: 2.0 - 3.0 Mechanical prosthetic heart valve: 2.5 - 3.5 Recurrent acute myocardial infarction: 2.5 - 3.5 Plasma 10/07/2024 6:00 AM EDT 10/07/2024 6:39 AM EDT us Eileen Schroeder MD, PhD LAB BLOOD ORDERABLES Final Result Performing Organization Address [facility] Co de Phone Number [facility] [address] * (ABNORMAL) Hepatic Function Panel (10/07/2024 [...] ORDERABLES Final Result Performing Organization Address City/[facility]/ZIP Co de Phone Number [facility] [address] [facility]. [address] * Magnesium (10/07/2024 6:00 AM EDT) Magnesium 1.7 1.5 - 2.5 mg/dL 10/07/2024 7:10 AM EDT [facility] Plasma 10/07/2024 6:00 AM EDT 10/07/2024 6:39 AM EDT us Eileen Schroeder MD, PhD LAB BLOOD ORDERABLES Final Result [facility] [address] [place] [address], [facility] * (ABNORMAL) Renal Function Panel w/EGFR [...] ORDERABLES Final Result Performing Organization Address City/State/[facility] Co de Phone Number [facility] [address] * (ABNORMAL) CBC (10/07/2024 6:00 AM [...] 6:00 AM EDT 10/07/2024 6:40 AM EDT [facility] - 10/07/2024 7:55 AM EDT Peripheral blood smear was scanned per review criteria approved by the laboratory medical pathology teacher. us Eileen Schroeder MD, PhD LAB BLOOD ORDERABLES Final Result Performing Organization Address [facility] Co de Phone Number [facility] [address] [facility] * AFP Tumor Marker (10/07/2024 6:00 AM EDT) AFP-Tumor Marker 2.0 0.0 - 9.0 ng/mL 10/07/2024 7:11 AM EDT [facility] Serum 10/07/2024 6:00 AM EDT 10/07/2024 6:39 AM EDT [facility] - 10/07/2024 7:11 AM EDT The testing method for AFP is a chemiluminescent immunoassay manufactured by [employer] Concentrations of AFP obtained by different assay methods or kits may vary and cannot be used interchangeably. AFP results cannot be interpreted as absolute evidence of the presence or absence of malignant disease. us Shila Rivera MD LAB BLOOD ORDERABLES Final Resul t Performing Organization Address City/[facility]/ZIP Co de Phone Number [facility] [address] * Vancomycin, random (10/07/2024 6:00 AM EDT) Vancomycin Random 21.1 ug/mL 10/07/2024 7:08 AM EDT [facility] Comment:Reference range not established for this test. Plasma 10/07/2024 6:00 AM EDT 10/07/2024 6:39 AM EDT Kiet Gardiner PharmD LAB BLOOD ORDERABLES Final Re sult [facility] [address] * Osmolality (10/06/2024 2:50 PM EDT) Osmolality, Measured 304 278 - 305 mOsm/kg 10/06/2024 3:49 PM EDT [facility] Serum 10/06/2024 2:50 PM EDT 10/06/2024 2:56 PM EDT Chari Vanegas MD LAB BLOOD ORDERABLES Final Resul t Performing Organization Address [facility] Co de Phone Number [facility] [address] [facility] * CT Head WO contrast (10/06/2024 [...] Eileen Schroeder MD, PhD IMG CT ORDERABLES [facility] Result * Chloride, urine, random (10/06/2024 1:25 PM EDT) Chloride, Ur <15 mmol/L 10/06/2024 1:56 PM EDT [facility] Comment:Reference range not established for this test. Urine 10/06/2024 1:25 PM EDT 10/06/2024 1:32 PM EDT Chari Vanegas MD URINE ORDERABLES Final Result [facility] [address] * Potassium, urine, random (10/06/2024 1:25 PM EDT) Potassium Urine Random 50.0 mmol/L 10/06/2024 1:56 PM EDT [facility] Comment:Reference range not established for this test. Urine 10/06/2024 1:25 PM EDT 10/06/2024 1:32 PM EDT us Chari Vanegas MD URINE ORDERABLES Final Result Performing Organization Address [facility] de Phone Number [facility] [address] [place] [address] * Sodium, urine, random (10/06/2024 1:25 PM EDT) Sodium, Ur <10 mmol/L 10/06/2024 1:56 PM EDT [facility] Comment:Reference range not established for this test. Urine 10/06/2024 1:25 PM EDT 10/06/2024 1:32 PM EDT us Chari Vanegas MD URINE ORDERABLES Final Result Performing Organization Address [facility] de Phone Number [facility] [address] * Creatinine, Urine, Random (10/06/2024 1:25 PM EDT) Creatinine, Urine 87.40 mg/dL 10/06/2024 1:56 PM EDT [facility] Comment:Reference range not established for this test. Urine 10/06/2024 1:25 PM EDT 10/06/2024 1:32 PM EDT us Chari Vanegas MD URINE ORDERABLES Final Result Performing Organization Address [facility] de Phone Number [facility] [address] [facility] * Osmolality, Urine (10/06/2024 1:25 PM EDT) Osmolality, Ur 386 50 - 1,200 mOsm/kg 10/06/2024 1:55 PM EDT [facility] Urine 10/06/2024 1:25 PM EDT 10/06/2024 1:32 PM EDT us Chari Vanegas MD URINE ORDERABLES Final Result [facility] [address] [facility]. [address] * Urine Drug Confirmation (10/06/2024 11:51 AM EDT) BARBITURATES NOT PRESENT 10/09/2024 3:23 PM EDT [facility] Comment:Results were recheck ed. BENZODIAZEPINES PRESENT 3:23 PM EDT [facility] Nordiazepam 3 ng/mL 10/09/2024 3:23 PM EDT [facility] Comment:Results were recheck ed. Temazepam 8 ng/mL 10/09/2024 3:23 PM EDT [facility] Comment:Results were recheck ed. CANNABINOIDS NOT PRESENT 10/09/2024 3:23 PM EDT [facility] MEDIA RELATIONS DIRECTOR STIMULANTS NOT PRESENT 3:23 PM EDT THE [...] Final Result [facility] [address] [place], [place] [address] * (ABNORMAL) Urine Drug Screen Reflex [...] eveloped and its performance characteristics determined by [facility] which is certified under the [...] eveloped and its performance characteristics determined by [facility] which is certified under the [...] 1:13 PM EDT CONFIRMATION TO FOLLOW Bisi Akella DO URINE ORDERABLES Final Result Performing Organization Address City/[facility]/ZIP Co de Phone Number [facility] [address] [facility] * Chloride, urine, random (10/06/2024 11:51 AM EDT) Chloride, Ur <15 mmol/L 10/06/2024 1:13 PM EDT [facility] Comment:Reference range not established for this test. Urine 10/06/2024 11:5 1 AM EDT 10/06/2024 11:57 AM EDT Bisi Hernandez DO URINE ORDERABLES Final Result Performing Organization Address [facility] Co de Phone Number [facility] [address] [facility] * Potassium, urine, random (10/06/2024 11:51 AM EDT) Potassium Urine Random 49.0 mmol/L 10/06/2024 1:13 PM EDT [facility] Comment:Reference range not established for this test. Urine 10/06/2024 11:5 1 AM EDT 10/06/2024 11:57 AM EDT Bisi Hernandezella DO URINE ORDERABLES Final Result Performing Organization Address City/[facility] Co de Phone Number [facility] [address] [facility] * Sodium, urine, random (10/06/2024 11:51 AM EDT) Sodium, Ur <10 mmol/L 10/06/2024 1:13 PM EDT [facility] Comment:Reference range not established for this test. Urine 10/06/2024 11:5 1 AM EDT 10/06/2024 11:57 AM EDT us Bisi Heranndez DO URINE ORDERABLES Final Result [facility] [address] [place] [address], [facility] * Urinalysis w/Rfl to Microscopic (10/06/2024 11:51 AM EDT) Color, UA Yellow Yellow,Straw 10/06/2024 12:25 PM EDT [facility] Clarity, UA Clear Clear 10/06/2024 12:25 PM EDT [facility] Specific Clancy, UA 1.014 1.005 - 1.035 10/06/2024 12:25 [...] ORDERABLES Final Result Performing Organization Address City/[facility]/ZIP Co de Phone Number [facility] [address] * Lactic Acid, STAT (10/06/2024 7:38 AM EDT) Lactate 0.9 0.5 - 2.2 mmol/L 10/06/2024 8:05 AM EDT [facility] Plasma 10/06/2024 7:38 AM EDT 10/06/2024 7:42 AM EDT us Chari Vanegas MD LAB BLOOD ORDERABLES Final Resul t Performing Organization Address [facility] Co de Phone Number [facility] [address] * (ABNORMAL) CBC, STAT (10/06/2024 7:37 [...] Resul t [facility] [address] [place] [address], [facility] * (ABNORMAL) Comprehensive Metabolic Panel (10/06/2024 [...] Final Resul t [facility] [address] [facility] [place] [address], [facility] * (ABNORMAL) Venous Blood Gas, Line/Syringe, [...] Final Resul t [facility] [address] [place] [address], [facility] * (ABNORMAL) Venous Blood Gas, Line/Syringe, [...] Final Resul t [facility] [address] * (ABNORMAL) Protime-INR (10/06/2024 4:01 AM EDT) Protime 21.3(H) 12.1 - 15.1 seconds 10/06/2024 4:40 AM EDT [facility] INR 1.8(H) 0.9 - 1.1 10/06/2024 4:40 AM EDT [facility] Comment: RECOMMENDED THERAPEUTIC RANGES USING INR : Stable oral anticoagulant therapy: 2.0 - 3.0 Mechanical prosthetic heart valve: 2.5 - 3.5 Recurrent acute myocardial infarction: 2.5 - 3.5 Plasma 10/06/2024 4:01 AM EDT 10/06/2024 4:11 AM EDT [facility] LAB BLOOD ORDERABLES Final Resul t Performing Organization Address [facility] Co de Phone Number [facility] [address] [facility] * (ABNORMAL) Hepatic Function Panel, AM [...] 4:01 AM EDT 10/06/2024 4:22 AM EDT [employer] DO LAB BLOOD ORDERABLES Final Resul t Performing Organization Address City/[facility]/ZIP Co de Phone Number [facility] [address] * Magnesium (10/06/2024 4:01 AM EDT) Magnesium 1.8 1.5 - 2.5 mg/dL 10/06/2024 4:57 AM EDT [facility] Plasma 10/06/2024 4:01 AM EDT 10/06/2024 4:22 AM EDT us Bisi Hernandez DO LAB BLOOD ORDERABLES Final Resul t [facility] [address] * (ABNORMAL) Renal Function Panel w/EGFR [...] - 5.7 g/dL 10/06/2024 4:57 AM EDT [facility] Osmolality, Calculated 286 278 - [...] >90mL/min/1.73m2. Reference: Luis Eduardo C, Talia M, Olivai DC, Emerita ND, Madelyn CA, Felicia ESPINOSA, et al. A Unifying Approach for GFR Estimation: Recommendations of the NKF-ASN Task Force on Reassessing the inclusion of Race in Diagnosing Kidney Disease. Am J Kidney Dis. 2020. Plasma 10/06/2024 4:01 AM EDT 10/06/2024 4:22 AM EDT us Bisi Hernandez DO LAB BLOOD ORDERABLES Final Resul t [facility] [address] [place] [address], [facility] * (ABNORMAL) CBC (10/06/2024 4:01 AM [...] 4:01 AM EDT 10/06/2024 4:11 AM EDT [facility] BLOOD ORDERABLES Final Resul t Performing Organization Address City/[facility]/ZIP Co de Phone Number [facility] [address] * Hepatitis C Antibody (10/06/2024 4:01 [...] exclude the possibility of exposure to HCV. us [facility] BLOOD ORDERABLES Final Resul t [facility] [address] * (ABNORMAL) Hepatitis B Surface Antibody, Quantitati (10/06/2024 4:01 AM EDT) Hep B S Ab Reactive( A) Nonreactive 10/06/2024 5:16 AM EDT [facility] HBSAB NUMBER 11.50(H) 0.00 - 7.99 mIU/mL 10/06/2024 5:16 AM EDT [facility] Serum 10/06/2024 4:01 AM EDT 10/06/2024 4:11 AM EDT [facility] - 10/06/2024 5:16 AM EDT Individual is considered immune to HBV infection. [facility] BLOOD ORDERABLES Final Resul t Performing Organization Address [facility] Co de Phone Number [facility] [address] [place] [address]. [address] * Hepatitis B surface antigen (10/06/2024 4:01 AM EDT) Hep B Surface Ag Nonreactive Nonreactive 10/06/2024 5:07 AM EDT [facility] Comment:Health Department no tified in accordance with reportable infectious disease guidelines. Serum 10/06/2024 4:01 AM EDT 10/06/2024 4:11 AM EDT [facility] - 10/06/2024 5:07 AM EDT Specimen is considered negative for HBsAg. [facility] BLOOD ORDERABLES Final Resul t Performing Organization Address [facility] Co de Phone Number [facility] [address] [facility] * Hepatitis A Antibody Total (10/06/2024 4:01 AM EDT) Anti-HAV Total (IgG + IgM) Nonreactive 10/06/2024 5:08 AM EDT [facility] Serum 10/06/2024 4:01 AM EDT 10/06/2024 4:11 AM EDT [facility] - 10/06/2024 5:08 AM EDT HAV antibodies not detected Bisi Akella DO LAB BLOOD ORDERABLES Final Resul t Performing Organization Address [facility] Co de Phone Number [facility] [address] * Hepatitis A IgM (10/06/2024 4:01 AM EDT) Hep A IgM Nonreactive Nonreactive 10/06/2024 5:02 AM EDT [facility] Serum 10/06/2024 4:01 AM EDT 10/06/2024 4:11 AM EDT Narrative [facility] - 10/06/2024 5:02 AM EDT IgM anti-HAV not detected. Does not exclude the possibility of exposure to or infection with HAV. Levels of IgM anti-HAV may be below the cut-off in early infection. [facility] LAB BLOOD ORDERABLES Final Resul t Performing Organization Address [facility] Co de Phone Number [facility] [address] * (ABNORMAL) Salicylate Level (10/06/2024 4:01 AM EDT) Salicylate Lvl <3(L) 10 - 30 mg/dL 10/06/2024 4:58 AM EDT [facility] Serum 10/06/2024 4:01 AM EDT 10/06/2024 4:22 AM EDT [facility] BLOOD ORDERABLES Final Resul t Performing Organization Address City/[facility] Co de Phone Number [facility] [address] [facility]. [address] * AFP Tumor Marker (10/06/2024 4:01 AM EDT) AFP-Tumor Marker 2.6 0.0 - 9.0 ng/mL 10/06/2024 4:55 AM EDT [facility] Serum 10/06/2024 4:01 AM EDT 10/06/2024 4:22 AM EDT Narrative [facility] - 10/06/2024 4:55 AM EDT The testing method for AFP is a chemiluminescent immunoassay manufactured by [employer] Concentrations of AFP obtained by different assay methods or kits may vary and cannot be used interchangeably. AFP results cannot be interpreted as absolute evidence of the presence or absence of malignant disease. us Bisi Hernandez LAB BLOOD ORDERABLES Final Resul t [facility] [address] [facility] [place] [address], [facility] * Upper Respiratory Viral/Bacterial Panel-DATA DEVELOPER Only (10/06/2024 3:12 AM EDT) Pathologist [facility] Adenovirus Not Detected Not Detected 10/06/2024 11:38 [...] Detected Not Detected 10/06/2024 11:38 PM EDT [facility] Resp. Syncycial Virus A Not Detected [...] Test results have been sent to the [facility] in accordance with state requirements. For a fact sheet for healthcare providers, see https://www.fda.gov/media/887218/download. For a fact sheet for patients, see https://www.fda.gov/media/482646/download. Nasopharyngeal Swab NASOPHARYNGEAL SWAB / Unknown 10/06/2024 3:12 AM EDT 10/06/2024 5:41 PM EDT Comment:DATA DEVELOPER us Bisi Hernandez DO BODY FLUIDS AND STOOLS ORDERABLE S Final Result [facility] [address] * X-ray Portable Chest (10/06/2024 1:16 AM [...] Cutoff: 10 ng/mL 10/10/2024 3:11 AM EDT [facility] Comment: PEth 16:0/18:2 (PLPEth) Reference ranges are not well established PEth Interpretation Negative. 10/10 3:11 AM EDT [facility] Comment: ADDITIONAL INFORMATION This report is intended for use in clinical monitoring and management of patients. It is not intended for use in employment-related testing. This test was developed and its performance characteristics determined by [facility] in a manner consistent with CLIA requirements. This test has not been cleared or approved by the U.S. Food and Drug Administration. Test Performed by: [facility] [place] [address] Strategic Account Director: Kathy Ortiz Ph.D.; CLIA# [id number] Whole Blood 10/06/2024 1:04 AM EDT 10/10/2024 3:11 AM EDT us Bisi Hernandez DO LAB BLOOD ORDERABLES Final Resul t [facility] [address] [place] [address], [facility] * (ABNORMAL) Acetaminophen Level (10/06/2024 1:04 AM EDT) Acetaminophen Level <10(L) 10 - 30 ug/mL 10/06/2024 2:08 AM EDT [facility] Serum 10/06/2024 1:04 AM EDT 10/06/2024 1:30 AM EDT [facility] BLOOD ORDERABLES Final Resul t [facility] [address] * Ethanol, Serum (10/06/2024 1:04 AM EDT) Ethanol <10 0 - 10 mg/dL 10/06/2024 2:08 AM EDT [facility] Serum 10/06/2024 1:04 AM EDT 10/06/2024 1:30 AM EDT [employer] LAB BLOOD ORDERABLES Final Resul t Performing Organization Address City/[facility]/ZIP Co de Phone Number [facility] [address] [facility]. [address] * #2 Blood culture-Peripheral site 2 [...] Result [facility] [address] * #1 Blood culture-Peripheral site 1 [...] Final Result [facility] [address] * Ammonia (10/06/2024 1:04 AM EDT) Ammonia 77 27 - 90 ug/dL 10/06/2024 2:00 AM EDT [facility] Plasma 10/06/2024 1:04 AM EDT 10/06/2024 1:30 AM EDT [facility] BLOOD ORDERABLES Final Resul t Performing Organization Address [facility] Co de Phone Number [facility] [address] [facility] * Thyroid Function [place] (10/06/2024 1:04 AM EDT) TSH 0.84 0.45 - 4.12 uIU/mL 10/06/2024 2:20 AM EDT [facility] Serum 10/06/2024 1:04 AM EDT 10/06/2024 1:39 AM EDT [facility] BLOOD ORDERABLES Final Resul t Performing Organization Address City/[facility] Co de Phone Number [facility] [address] [facility] * (ABNORMAL) Protime-INR (10/06/2024 1:04 AM [...] AM EDT 10/06/2024 1:30 AM EDT us [employer] DO LAB BLOOD ORDERABLES Final Resul t Performing Organization Address City/[facility] Co de Phone Number [facility] [address] [facility] * Lactic Acid, STAT (10/06/2024 1:04 AM EDT) Lactate 1.2 0.5 - 2.2 mmol/L 10/06/2024 1:59 AM EDT [facility] Plasma 10/06/2024 1:04 AM EDT 10/06/2024 1:30 AM EDT us [employer] DO LAB BLOOD ORDERABLES Final Resul t Performing Organization Address [facility] de Phone Number [facility] [address] * (ABNORMAL) CBC, STAT (10/06/2024 1:04 [...] Final Resul t [facility] [address] * (ABNORMAL) Comprehensive Metabolic Panel (10/06/2024 [...] Final Resul t [facility] [address] documented in this encounter Visit Diagnoses [...] patient is non-communicative (CPOT 3-5), Starting on [facility] 10/07/24 at 1205 oxyCODONE (ROXICODONE) immediate release tablet 5 mg 5 mg, Oral, Every 6 hours PRN, severe pain (NRS 7-10) or if patient is non-communicative (CPOT 6-8), Starting on [facility] 10/07/24 at 1205 Given 10/17/2024 8:48 AM EDT 5 mg Given 10/17/2024 2:45 AM EDT 5 mg Given 10/16/2024 8:31 PM EDT 5 mg oxyCODONE (ROXICODONE) immediate release tablet 5 mg 5 mg, Oral, Once, On [facility] 10/14/24 at 0130, For 1 dose Given [...] in sodium chloride 0.9 % 250 mL [id number] 1,000 mg, Intravenous, Administer over 60 Minutes, Once, Contact pharmacy if there is a question/concern of whether vancomycin should be given based on serum drug levels. Use [id number] Adapter - Mix Thoroughly Before Administration, Indication? Infection-Suspected, Site of diagnosed infections (select all that apply): Abdominal/Pelvic New Bag 10/08/2024 12:59 PM EDT 1,000 mg 250 mL/hr vancomycin (VANCOCIN) 1,500 mg in sodium chloride 0.9 % 250 mL [id number] 1,500 mg, Intravenous, Administer over 90 Minutes, Once, Contact pharmacy if there is a question/concern of whether vancomycin should be given based on serum drug levels. Use [id number] Adapter - Mix Thoroughly Before Administration, Indication? 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
--- OUTSIDE RECORDS SUMMARY | 2024-10-10 10:36 | XMS_ITS | Encounter Summary ---
Author Organization [facility] Address [facility] [place] [address] Care Team Providers Care Entrepreneurial Finance Professor Name Role Phone Enedina Mcguire NP Primary Care Provider [phone] Source Comments This information has been disclosed [...] release of HIV test results or diagnoses. [id number] Health Reason for Visit * Auth/Cert (Routine) Specialty Diagnoses / Procedures Referred By Shane hernadez Referred To Contact General Internal Medicine Diagnoses [facility] [address] [place] [address] Phone: tel: Referral ID Status Reason Start Date Expiration Date Visits Re quested Visits Authorized [id number] 1 1 Encounter Details Date Type Department Care Team (Late st Contact Info) Description 10/10/2024 10:36 AM EDT - 10/10/2024 11:06 AM EDT Surgery [facility] ENDOSCOPY [address] [place] [address] Lino Soto MD [address] [place] [id number] EGD Surgery Details Date/Time Status Location OR Service Patient Class Case Class Case Type Trauma Case? 10/10/2024 10:36 AM Posted ENDOSCOPY E2 Gastroenterology Inpatient EGD/Sm Bowel Panel 1 Procedure LRB Anes Op Region Wound Class Comments EGD N/A MAC ([facility]) Clean Contaminated Surgeon Surgeon Role Service Panel [...] any time in the past 12 [facility], were you homeless or living in a assisted (including now)? No 10/06/2024 Yearly Questionnaire Answer [...] Kandy Fuentes - 10/17/2024 10:29 AM EDT [facility] Care Management Discharge Summary Patient name: [...] post discharge: Not Applicable Kandy BAE RN [phone] * William Blount MD - 10/17/2024 8:50 AM EDT [facility] Inpatient Discharge Summary Patient: Julien Gilbert Age: 39 y.o. CSN: [id number] Date of Admission: 10/05/2024 Date of Discharge: [...] Case IDs Date Procedure Surgeon Location Status [id number] 10/10/24 EGD Lino Soto MD ENDOSCOPY Comp [id number] 10/14/24 Left Heart Cath Irving Matta MD [...] at 10/08/2024 1:12 PM EDT US Duplex Dlp-Avs-Uwtsqwy Comp Final Result IMPRESSION: ABDOMEN 1. Cirrhotic [...] 90 tablet Refills: 0 naloxone 4 mg/actuation Hector Commonly known as: NARCAN Apply 1 spray [...] Your Medications These medications were sent to [facility] [address] [facility] [address] Hours: Sunday - Sunday: 8:00AM - 6:00PM FLUoxetine 20 MG capsule lactulose 10 gram/15 mL solution loratadine 10 mg tablet methocarbamoL 500 MG tablet midodrine 10 MG tablet naloxone 4 mg/actuation Hector oxyCODONE 5 MG immediate release tablet Discharge [...] Order Questions: Select Supplement: Boost-1 kcal/ml supplement ([facility] only) As listed above, low sodium [...] AM EDT 10/17/2024 naloxone (NARCAN) 4 mg/actuation Hector Apply 1 spray in one nostril if [...] Hughes MD - 10/17/2024 10:23 AM EDT [facility] HEPATOLOGY PROGRESS NOTE Name: Julien Gilbert CSN: [id number] Consulted by: Chelsy Lerner MD Reason for [...] Yes Past Week naloxone (NARCAN) 4 mg/actuation Hector Apply 1 spray in one nostril if [...] nucleated cells, <2000 RBCs 10% Polynuclear, 90% Horry nuc. There were initial reports of gram [...] of chemical dependency treatment as outpatient. - [facility] with no obstructive coronary disease - Psych eval for PTSD With recommendation of sertraline - Given his renal dysfunction, will plan to list for [facility] when he qualifies on 10/22/2024. Labs next week - Plan for d/c today Bobby Sidhu MD Transplant Oil Agent Please see the body of the resident, [...] remains <30 until October 22. Waiting for [facility] today. ASSESSMENT NADIYA on CKD, last [...] Staff. Jeremiah Gamino PGY4 Nephrology. Pager no. [phone] Chief Complaint No chief complaint on file. [...] hyperlipidemia (07/26/2024), Renal cell carcinoma ([facility]), Thrombocytopenia ([facility]), and Thyroid disease. he has [...] at 10/08/2024 1:12 PM EDT US Duplex Vhd-Xna-Zhiozzj Comp Final Result IMPRESSION: ABDOMEN 1. Cirrhotic [...] no head imaging has been performed at [facility]. -CT Head w/o contrast -Imaging showed [...] Order Questions: Select Supplement: Boost-1 kcal/ml supplement ([facility] only) Code Status: Full Code Signed: [...] another specialty or practice, other licensed professional (PT/OT/CELL STRIPPER/RT), or a non-medical community professional: Hepatology, Interventional [...] due to positioning during LHC on 10/14. [place] the worst in CVR, but has improved [...] Kumar, DMITRY - 10/16/2024 1:08 PM EDT [facility] Medical Nutrition Therapy Follow-Up Diet Order/Nutrition Support: Regular diet, Boost TID - Vanilla preference Pertinent Information: This is a 39 year old male history of ETOH cirrhosis d/b HE, ascites with SBP who is admitted for AMS. Precipitant of his HE likely SBP. Diagnostic paracentesis at OSH reportedly showed 61 nucleated cells, <2000 RBCs 10% Polynuclear, 90% Horry nuc. There were initial reports of gram [...] Based on CBW of 119.5 kg Kcals/day: 3063-4350 (18-21 kcals/kg) Protein g/day: 119-143 (1-1.2 g/kg) [...] Kumar RD, LD Clinical Dietitian Contact via [employer] * Jerad Hughes MD - 10/16/2024 11:03 AM EDT [facility] HEPATOLOGY PROGRESS NOTE Name: Julien Gilbert CSN: [id number] Consulted by: Chelsy Lerner MD Reason for [...] nucleated cells, <2000 RBCs 10% Polynuclear, 90% Horry nuc. There were initial reports of gram [...] of chemical dependency treatment as outpatient. - [facility] with no obstructive coronary disease - Psych eval for PTSD With recommendation of sertraline - Given his renal dysfunction, will plan to list for [facility] when he qualifies on 10/22/2024. - Will follow Bobby Sidhu MD Transplant Oil Agent Please see the body of the resident, [...] remains <30 until October 22. Waiting for [facility] today. ASSESSMENT NADIYA on CKD, last [...] COMMENT on 10/08/2024 Iron%- Iron replete PLAN -[facility] yesterday- patient remains at risk of contrast related injury on top of exisiting NADIYA for 24-48 hrs after contrast load. -He is volume overloaded -patient needs to follow up closely with nephrology after discharge Thank you for allowing us to participate in this patient's care. Discussed with Consult Staff. Jeremiah Gamino PGY4 Nephrology. Pager no. [phone] Chief Complaint No chief complaint on file. [...] at 10/08/2024 1:12 PM EDT US Duplex Kzt-Nxp-Mcgbyyw Comp Final Result IMPRESSION: ABDOMEN 1. Cirrhotic [...] not tolerate Stress ECHO on 10/09 - [facility] today -Per GI recs, started on [...] no head imaging has been performed at [facility]. -CT Head w/o contrast -Imaging showed [...] Order Questions: Select Supplement: Boost-1 kcal/ml supplement ([facility] only) Code Status: Full Code Signed: WILLIAM BLOUNT MD 10/15/2024, 10:49 AM Cosigned by Chelsy Lerner MD at 10/15/2024 2:47 PM EDT Associated attestation - Chelsy Lerner MD - 10/15/2024 2:47 PM EDT [facility] Medicine Attending Supervision Note Julien Gilbert was seen today on rounds with the resident physician. I personally interviewed and examined the patient. I reviewed the documentation by the resident and agree as documented unless otherwise stated below. Reason for today's visit: Acute kidney injury superimposed on CKD ([facility]) Supplemental History / ROS R [...] another specialty or practice, other licensed professional (PT/OT/CELL STRIPPER/RT), or a non-medical community professional: Hepatology, Interventional [...] due to positioning during LHC on 10/14. [place] the worst in CVR, but has improved [...] Hughes MD - 10/15/2024 10:15 AM EDT [facility] HEPATOLOGY PROGRESS NOTE Name: Julien Gilbert CSN: [id number] Consulted by: Chelsy Lerner MD Reason for [...] nucleated cells, <2000 RBCs 10% Polynuclear, 90% Horry nuc. There were initial reports of gram [...] of chemical dependency treatment as outpatient. - [facility] yesterday with no obstructive coronary disease - Psych eval for PTSD and medical management - Given his renal dysfunction, will plan to list for [facility] when he qualifies on 10/22/2024. - Will follow Bobby Sidhu MD Transplant Oil Agent Please see the body of the resident, [...] Quan MD - 10/14/2024 2:34 PM EDT [facility] Department of Cardiovascular Health and [...] remains <30 until October 22. Waiting for [facility] today. ASSESSMENT NADIYA on CKD, last discharge creatinine 2.4 Baseline Creatinine 1.2-1.3, HRS- NADIYA as no response to holding lasix and albumin UA bland Urine lytes <10/< 15/ [address] [facility] today Renal Function: Recent Labs 10/14/24 [...] Staff. Jeremiah Gamino PGY4 Nephrology. Pager no. [phone] Chief Complaint No chief complaint on file. [...] at 10/08/2024 1:12 PM EDT US Duplex Shj-Rju-Vadiwqn Comp Final Result IMPRESSION: ABDOMEN 1. Cirrhotic [...] not tolerate Stress ECHO on 10/09 - [facility] today -Per GI recs, started on [...] no head imaging has been performed at [facility]. -CT Head w/o contrast -Imaging showed [...] never required dialysis. Patient is going for [facility] today and will receive contrast, okay [...] Order Questions: Select Supplement: Boost-1 kcal/ml supplement ([facility] only) Code Status: Full Code Signed: [...] another specialty or practice, other licensed professional (PT/OT/CELL STRIPPER/RT), or a non-medical community professional: Hepatology, Interventional [...] Hughes MD - 10/14/2024 7:42 AM EDT [facility] HEPATOLOGY PROGRESS NOTE Name: Julien Gilbert CSN: [id number] Consulted by: Chelsy Lerner MD Reason for [...] nucleated cells, <2000 RBCs 10% Polynuclear, 90% Horry nuc. There were initial reports of gram [...] eval ongoing. Transplant work up ongoing - [facility] today - Transplant nephrology following for [...] - Will follow Bobby Sidhu MD Transplant Oil Agent Please see the body of the resident, [...] Staff. Jeremiah Gamino PGY4 Nephrology. Pager no. [phone] Chief Complaint No chief complaint on file. [...] Hughes MD - 10/13/2024 12:33 PM EDT [facility] HEPATOLOGY PROGRESS NOTE Name: Julien Gilbert CSN: [id number] Consulted by: Fouzia Rene MD Reason for [...] nucleated cells, <2000 RBCs 10% Polynuclear, 90% Horry nuc. There were initial reports of gram [...] eval ongoing. Transplant work up ongoing - [facility] today - Transplant nephrology following for [...] - Will follow Bobby Sidhu MD Transplant Oil Agent Please see the body of the resident, [...] Homagdalena, RD - 10/13/2024 10:49 AM EDT [facility] Medical Nutrition Therapy Reason(s) for [...] Order Questions: Select Supplement: Boost-1 kcal/ml supplement ([facility] only) Pertinent Information: Julien Gilbert is a 39 y.o. Male admitted for Acute kidney injury superimposedon CKD ([facility]) Pt noted to have waxing [...] kg) Body mass index is 32.07 kg/m??. [place] Body Weight: 202 lbs (91.8 kg) +/- 10% Weight History: Wt Readings from Last 10 Encounters: 10/10/24 (!) 263 lb 8 oz (119.5 kg) 09/05/24 (!) 262 lb 9.6 oz (119.1 kg) 09/02/24 (!) 258 lb (117 kg) 08/17/24 (!) 242 lb 11.2 oz (110.1 kg) 07/28/24 (!) 245 lb (111.1 kg) Estimated Nutrition Needs: Based on CBW of 119.5 kg Kcals/day: 1227-5300 (18-21 kcals/kg) Protein g/day: 119-143 (1-1-2 g/kg) [...] Dietitian - Solid Organ Transplant Contact via [employer] Chat * Eileen Schroeder MD, PhD - 10/13/2024 8:19 AM EDT Department of Internal Medicine Daily Progress Note Chief Complaint / Reason for Follow-Up Julien Gilbert is a 39 y.o. male on hospital day 8. The principal reason for today's follow up visit is Acute kidney injury superimposed on CKD ([facility]). NAEON Pt felt well this [...] at 10/08/2024 1:12 PM EDT US Duplex Jkw-Bsc-Pbgjllc Comp Final Result IMPRESSION: ABDOMEN 1. Cirrhotic [...] no head imaging has been performed at [facility]. -CT Head w/o contrast -Imaging showed [...] Order Questions: Select Supplement: Boost-1 kcal/ml supplement ([facility] only) Code Status: Full Code Signed: [...] I reviewed the documentation by the medical guest service team leader and agree as documented. [...] was non-diagnostic due to hypotension. Plan for [facility] today, but now moved to tomorrow. [...] when medically ready. Consider d/c home after [facility] tomorrow. FOUZIA RENE MD Attending Physician Department of Internal Medicine 10/13/2024 Medical Decision Making: // LEVEL 2 MOD One chronic illness with exacerbation, progression, or side effects of treatment Discussed with physician/SAWYER from another specialty or practice, other licensed professional (PT/OT/CELL STRIPPER/RT), or a non-medical community professional: Nephrology, Hepatology [...] at 10/08/2024 1:12 PM EDT US Duplex Yav-Zbx-Majtcus Comp Final Result IMPRESSION: ABDOMEN 1. Cirrhotic [...] no head imaging has been performed at [facility]. -CT Head w/o contrast -Imaging showed [...] Order Questions: Select Supplement: Boost-1 kcal/ml supplement ([facility] only) Code Status: Full Code Signed: [...] I reviewed the documentation by the medical guest service team leader and agree as documented. Any additions or clarifications are listed below. Daily plan was discussed with patient at bedside and questions addressed. Patient ID: Juline Gilbert is a 39 y.o. male currently admitted for Acute kidney injury superimposed on CKD ([facility]) Supplemental History/ ROS: No acute [...] kidney injury superimposed on CKD ([facility]) Active Problems: NADIYA (acute kidney injury) on CKD ([facility]): Hepatorenal syndrome. Appreciate nephrology consult. S/p albumin X3. baseline creatinine presumed to be around 2.5. Creatinine improved from its peak and may be now fluctuating around a new baseline. We will continue to monitor. Spontaneous Bacterial Peritonitis ([facility]): He remains afebrile and vital signs have been stable. Received 4 days of vancomycin, Ceftriaxone x 5d. - Restart Cipro prophylaxis Anemia: Multiple contributors. S/p 1 unit PRBC. Hemoglobin responded appropriately and remained stable. Will continue to monitor. Metabolic encephalopathy: Resolved. Likely related to combination of hepatic, metabolic, and possibly infectious insults. - Continue home lactulose and rifaximin Decompensated cirrhosis ([facility]): Appreciate hepatology consult. He has started [...] another specialty or practice, other licensed professional (PT/OT/CELL STRIPPER/RT), or a non-medical community professional: Nephrology, Hepatology [...] tid. cardiac workup pre txp. pLan for [facility] Sunday Liver transplant workup per GI/ [...] concern for hepatorenal syndrome.` Patient came from [facility], paracentesis was performed yesterday on [...] 706.9 (H) 10/08/2024 No results found for: [id number] , FOLATE Lab Results Component Value Date [...] CRUR No results found for: MICROALBUR , [id number] In addition to the above an extensive [...] 4:39 PM EDT ATTESTATION I saw Mr/Ms Jluien Gilbert with renal fellow / consult team [...] 4.6 10/12/2024 Lab Results Component Value Date VSSR02G 7.1 (L) 10/08/2024 PLAN Monitor renal panel [...] AM Colten Huertas MD, KISHOR LIN, FNKF whale trainer Div. of Nephrology [facility] E-mail: [email or web address] This note was completely edited, [...] Rene MD Interval hx No issues. Pending [facility]. Assessment: Renal Function: Cr: 2.77 Bun: [...] tid. cardiac workup pre txp. pLan for [facility] Sunday 4. Liver transplant workup per [...] concern for hepatorenal syndrome.` Patient came from [facility], paracentesis was performed yesterday on [...] 706.9 (H) 10/08/2024 No results found for: [id number] , FOLATE Lab Results Component Value Date [...] CRUR No results found for: MICROALBUR , [id number] In addition to the above an extensive [...] 3.5 10/11/2024 Lab Results Component Value Date AZUD76Z 7.1 (L) 10/08/2024 PLAN Monitor renal panel [...] AM Colten Huertas MD, KISHOR LIN FNKF whale trainer Div. of Nephrology [facility] E-mail: [email or web address] This note was completely edited, [...] kidney injury superimposed on CKD ([facility]). NAEON Pt felt much better [...] at 10/08/2024 1:12 PM EDT US Duplex Mdh-Cte-Jhjnhtj Comp Final Result IMPRESSION: ABDOMEN 1. Cirrhotic [...] from outside facility. Will engage with them daily([phone]. Ask to speak to a tech) about [...] no head imaging has been performed at [facility]. -CT Head w/o contrast -Imaging showed [...] Order Questions: Select Supplement: Boost-1 kcal/ml supplement ([facility] only) Code Status: Full Code Signed: [...] I reviewed the documentation by the medical guest service team leader and agree as documented. [...] another specialty or practice, other licensed professional (PT/OT/CELL STRIPPER/RT), or a non-medical community professional: Nephrology, Hepatology, [...] Strictly monitor urine output No Indication for COUPON REDEMPTION CLERK 3. Not a candidate for terlipressin per [...] Ignacio Queen MD Renal Fellow Pager # [phone] Chief Complaint No chief complaint on file. [...] concern for hepatorenal syndrome.` Patient came from [facility], paracentesis was performed yesterday on [...] PHOS -- < > 3.5 3.4 3.3 QDVC90G 7.1* -- -- -- -- < > = values in this interval not displayed. Lab Results Component Value Date IRON 81 10/08/2024 TIBC SEE COMMENT 10/08/2024 FERRITIN 706.9 (H) 10/08/2024 No results found for: [id number] , FOLATE Lab Results Component Value Date [...] CRUR No results found for: MICROALBUR , [id number] In addition to the above an extensive [...] 3.3 10/10/2024 Lab Results Component Value Date IQED32P 7.1 (L) 10/08/2024 PLAN Continue IV albumin [...] AM Colten Huertas MD, DELIA, KISHOR, FNKF whale trainer Div. of Nephrology [facility] E-mail: [email or web address] This note was completely edited, [...] to follow pt while pt is at [facility]. * Jodi Ortiz PharmD - 10/10/2024 10:27 AM EDT Clinical Pharmacy Service: Vancomycin Consult Progress Note Patient has been transitioned off of vancomycin therapy per team notes and orders. Pharmacy will sign-off at this time, please do not hesitate to consult again as needs arise. Thank you for involving pharmacy in the care of this patient. Jodi Ortiz PharmD Clinical Fuel Attendant, Internal Medicine Preferred contact: [employer] Clinical Qyyoipf-Ls-Bwyn Pager: [phone] October 10, 2024 10:27 AM Laboratory Data [...] 10/07/2024 10:50 PM Giardia Cryptosporidium Antigens Final [id number] 10/07/2024 10:50 PM Ova and Parasite Comprehensive w/ Giardia/Crypto Final [id number] Feces 10/06/2024 1:04 AM #2 Blood culture-Peripheral site 2 Preliminary [id number] Peripheral 10/06/2024 1:04 AM #1 Blood culture-Peripheral site 1 Preliminary [id number] Peripheral Pharmacokinetics Lab Results (Last 7 days) Today 522 Yesterday 10/08 0536 Vanc Rdm 16.4 11.0 16.0 * Gerri Peterson MD - 10/10/2024 10:09 AM EDT [facility] HEPATOLOGY PROGRESS NOTE Name: Julien Gilbert CSN: [id number] Consulted by: Fouzia Rene MD Reason for [...] nucleated cells, <2000 RBCs 10% Polynuclear, 90% Horry nuc. Per OSH reports, ascitic fluid cultures [...] to achieving target HR. -cardiology consult for [facility] on Sunday - Transplant nephrology following [...] from the original note were not included. [facility] Clinical Pharmacy Service: Vancomycin Monitoring Consult [...] in sodium chloride 0.9 % 250 mL Faia8Byf (Completed) 1,500 mg Once 10/09/2024 10/09/2024 Admin Instructions: Contact pharmacy if there is a question/concern of whether vancomycin should begiven based on serum drug levels. Use Sptn0Qge Adapter - Mix Thoroughly Before Administration Route: Intravenous vancomycin (VANCOCIN) 1,500 mg in sodium chloride 0.9 % 250 mL Zihy1Pbk 1,500 mg Once 10/10/2024 10/11/2024 Admin Instructions: Contact pharmacy if there is a question/concern of whether vancomycin should begiven based on serum drug levels. Use Dtrt5Fnl Adapter - Mix Thoroughly Before Administration Route: [...] in sodium chloride 0.9 % 250 mL Qfrg9Htq 1,500 mg 166.7 mL/hr 10/08/24 1259 New Bag vancomycin (VANCOCIN) 1,000 mg in sodium chloride 0.9 % 250 mL Iutw3Wcw 1,000 mg 250 mL/hr --Objective Data-- Vitals: [...] 53 53 54 Creatinine 2.85 2.89 3.04 [place] body weight: 86.8 kg (191 lb 5.7 oz) Adjusted ideal body weight: 99.9 kg (220 lb 3.5 oz) Estimated CrCl: ~35-45 mL/min --Cultures-- Microbiology Results Date and Time Order Name Sensitivity Status Organisms Specimen ID Source 10/07/2024 10:50 PM Giardia Cryptosporidium Antigens Final [id number] 10/07/2024 10:50 PM Ova and Parasite Comprehensive w/ Giardia/Crypto Final [id number] Feces 10/06/2024 1:04 AM #2 Blood culture-Peripheral site 2 Preliminary [id number] Peripheral 10/06/2024 1:04 AM #1 Blood culture-Peripheral site 1 Preliminary [id number] Peripheral --Vancomycin Concentrations-- Lab Results (Last 7 [...] for the consult. Jodi Ortiz PharmD Clinical Fuel Attendant, Internal Medicine Preferred contact: [employer] Clinical Dhzwvmo-Ne-Ustv Pager: [phone] October 10, 2024 9:13 AM * Eileen Schroeder MD, PhD - 10/10/2024 8:17 AM EDT Department of Internal Medicine Daily Progress Note Chief Complaint / Reason for Follow-Up Julien Gilbert is a 39 y.o. male on hospital day 5. The principal reason for today's follow up visit is Acute kidney injury superimposed on CKD ([facility]). DREW Pt was very conversational [...] at 10/08/2024 1:12 PM EDT US Duplex Con-Eyf-Mhvvbwi Comp Final Result IMPRESSION: ABDOMEN 1. Cirrhotic [...] from outside facility. Will engage with them daily([phone]. Ask to speak to a tech) about [...] no head imaging has been performed at [facility]. -CT Head w/o contrast -Imaging showed [...] Order Questions: Select Supplement: Boost-1 kcal/ml supplement ([facility] only) Code Status: Full Code Signed: EILEEN SCHROEDER MD, PhD 10/10/2024, 11:17 AM Cosigned by Fouzia Rene MD at 10/10/2024 12:53 PM EDT Associated attestation - Fouiza Rene MD - 10/10/2024 12:53 PM EDT [...] I reviewed the documentation by the medical guest service team leader and agree as documented. Any additions or clarifications are listed below. Daily plan was discussed with patient at bedside and questions addressed. Patient ID: Julien Gilbert is a 39 y.o. male currently admitted for Acute kidney injury superimposed on CKD ([facility]) Supplemental History/ ROS: No acute [...] for Acute kidney injury superimposed on CKD ([facility]) Active Problems: Spontaneous Bacterial Peritonitis ([facility]): Cultures from OSH were reported as [...] Continue home lactulose and rifaximin Decompensated [facility] Appreciate hepatology consult. He has started his [...] IR. NADIYA (acute kidney injury) on CKD ([facility]): Appreciate nephrology consult. Likely due to hepatorenal [...] another specialty or practice, other licensed professional (PT/OT/CELL STRIPPER/RT), or a non-medical community professional: Nephrology, Hepatology, [...] Strictly monitor urine output No Indication for COUPON REDEMPTION CLERK Not a candidate for terlipressin per liver due to HE, liver and kidney failure, on midodrine tid. Considering para today, cardiac workup pre txp Liver transplant workup per GI/ Primary team, considering for SLK, seen by renal transplant team Thank you for allowing us to participate in this patient's care. Discussed with Consult Staff. Ignacio Queen MD Renal Fellow Pager # [phone] Chief Complaint No chief complaint on file. [...] concern for hepatorenal syndrome.` Patient came from [facility], paracentesis was performed yesterday on [...] 9.0 9.3 PHOS -- 3.5 3.5 3.4 [id number] 7.1* -- -- -- Lab Results Component Value Date IRON 81 10/08/2024 TIBC SEE COMMENT 10/08/2024 FERRITIN 706.9 (H) 10/08/2024 No results found for: [id number] , FOLATE Lab Results Component Value Date [...] CRUR No results found for: MICROALBUR , [id number] In addition to the above an extensive [...] 3.4 10/09/2024 Lab Results Component Value Date MWWG65H 7.1 (L) 10/08/2024 PLAN Continue IV albumin [...] PM Colten Huertas MD, KISHOR LIN, FNKF whale trainer Div. of Nephrology [facility] E-mail: [email or web address] This note was completely edited, [...] Peterson MD - 10/09/2024 1:07 PM EDT [facility] HEPATOLOGY PROGRESS NOTE Name: Julien Gilbert CSN: [id number] Consulted by: Fouzia Rene MD Reason for [...] nucleated cells, <2000 RBCs 10% Polynuclear, 90% Horry nuc. Fluid cultures reportedly grew gram + [...] from the original note were not included. [facility] Clinical Pharmacy Service: Vancomycin Monitoring Consult [...] in sodium chloride 0.9 % 250 mL Tnzh4Nui (Completed) 1,000 mg Once 10/08/2024 10/08/2024 Admin Instructions: Contact pharmacy if there is a question/concern of whether vancomycin should begiven based on serum drug levels. Use Euaz3Nqd Adapter - Mix Thoroughly Before Administration Route: Intravenous vancomycin (VANCOCIN) 1,500 mg in sodium chloride 0.9 % 250 mL Bmnb0Kym 1,500 mg Once 10/09/2024 10/10/2024 Admin Instructions: Contact pharmacy if there is a question/concern of whether vancomycin should begiven based on serum drug levels. Use Mlxn8Aps Adapter - Mix Thoroughly Before Administration Route: [...] in sodium chloride 0.9 % 250 mL Sfdd6Qbv 1,000 mg 250 mL/hr 10/06/24 1413 New [...] 10/07/2024 10:50 PM Giardia Cryptosporidium Antigens Final [id number] 10/07/2024 10:50 PM Ova and Parasite Comprehensive w/ Giardia/Crypto Final [id number] Feces 10/06/2024 1:04 AM #2 Blood culture-Peripheral site 2 Preliminary [id number] Peripheral 10/06/2024 1:04 AM #1 Blood culture-Peripheral site 1 Preliminary [id number] Peripheral --Vancomycin Concentrations-- Lab Results (Last 7 [...] for the consult. Jodi Ortiz PharmD Clinical Fuel Attendant, Internal Medicine Preferred contact: [employer] Clinical Vxlbyya-Fu-Mcfo Pager: [phone] October 09, 2024 8:29 AM * Eileen Schroeder MD, PhD - 10/09/2024 8:00 AM EDT Department of Internal Medicine Daily Progress Note Chief Complaint / Reason for Follow-Up Julien Gilbert is a 39 y.o. male on hospital day 4. The principal reason for today's follow up visit is Acute kidney injury superimposed on CKD ([facility]). DREW and father at bedside [...] at 10/08/2024 1:12 PM EDT US Duplex Znn-Led-Jyzbfwf Comp Final Result IMPRESSION: ABDOMEN 1. Cirrhotic [...] from outside facility. Will engage with them daily([phone]. Ask to speak to a tech) about [...] no head imaging has been performed at [facility]. -CT Head w/o contrast -Imaging showed [...] Order Questions: Select Supplement: Boost-1 kcal/ml supplement ([facility] only) Code Status: Full Code Signed: [...] I reviewed the documentation by the medical guest service team leader and agree as documented. Any additions or clarifications are listed below. Daily plan was discussed with patient at bedside and questions addressed. Patient ID: Julien Gilbert is a 39 y.o. male currently admitted for Acute kidney injury superimposed on CKD ([facility]) Supplemental History/ ROS: No acute [...] kidney injury superimposed on CKD ([facility]) Active Problems: Anemia: S/p 1 unit PRBC from yesterday. Hemoglobin responded appropriately and remained stable. Will continue to monitor. Metabolic encephalopathy: Mostly resolved. Likely related to combination of hepatic, metabolic, andpossibly infectious insults. - Continue home lactulose and rifaximin Spontaneous Bacterial Peritonitis ([facility]): Cultures from OSH are growing gram- positive organisms.We continue to await speciation. He remains afebrile and vital signs have been stable. - Continue vancomycin and ceftriaxone for now. - Will follow-up on speciation and sensitivities. Decompensated cirrhosis ([facility]): Appreciate hepatology consult. He has started his transplant evaluation and will continue while inpatient. - MELD labs daily - Continue home regimen with ursodiol, rifaximin and lactulose - Start midodrine 3 times daily - EGD postponed until tomorrow -Planning for stress test today - Due for therapeutic paracentesis in the next day or so. NADIYA (acute kidney injury) on CKD ([facility]): Appreciate nephrology consult. Likely due to hepatorenal syndrome. Now s/p albumin X3. baseline creatinine presumed to be around 2.5. Creatinine slightly lower today. We will continue to monitor. Electrolyte derangements: Replete as needed Neck Pain: He has a history of cervical surgery. Continue oxycodone as needed for pain. Continue tomonitor. Principal Problem: Acute kidney injury superimposed on CKD ([facility]) Active Problems: Decompensated cirrhosis ([facility]) Metabolic encephalopathy Thrombocytopenia ([facility]) Renal mass, left Metabolic acidosis with normal anion gap and bicarbonate losses GERD (gastroesophageal reflux disease) Anemia SBP (spontaneous bacterial peritonitis) ([facility]) Neck pain with history of cervical [...] another specialty or practice, other licensed professional (PT/OT/CELL STRIPPER/RT), or a non-medical community professional: Nephrology, Hepatology Labs reviewed (1 pt each): CBC, CMP, INR & other daily labs Review of notes from a different specialty or different practice: Nephrology, Anesthesiology hepatology, * Gerri Peterson MD - 10/08/2024 1:40 PM EDT [facility] HEPATOLOGY PROGRESS NOTE Name: Julien Gilbert CSN: [id number] Consulted by: Fouzia Rene MD Reason for [...] nucleated cells, <2000 RBCs 10% Polynuclear, 90% Horry nuc. Fluid cultures reportedly grew gram + [...] disease (ESRD) patient in a hospital based, [facility] based, or home setting. -At the time [...] I have discussed this plan with the communications coordinator and the liver transplant team. Cosigned [...] from the original note were not included. [facility] Clinical Pharmacy Service: Vancomycin Monitoring Consult [...] in sodium chloride 0.9 % 250 mL Msns9Hcw 1,000 mg Once 10/08/2024 10/09/2024 Admin Instructions: Contact pharmacy if there is a question/concern of whether vancomycin should begiven based on serum drug levels. Use Patz9Xmn Adapter - Mix Thoroughly Before Administration Route: [...] 10/07/2024 10:50 PM Giardia Cryptosporidium Antigens Final [id number] 10/07/2024 10:50 PM Ova and Parasite Comprehensive w/ Giardia/Crypto In process [id number] Feces 10/06/2024 1:04 AM #2 Blood culture-Peripheral site 2 Preliminary [id number] Peripheral 10/06/2024 1:04 AM #1 Blood culture-Peripheral site 1 Preliminary [id number] Peripheral --Vancomycin Concentrations-- Lab Results (Last 7 [...] for the consult. Jodi Ortiz, PharmD Clinical Fuel Attendant, Internal Medicine Preferred contact: [employer] Clinical Lphufwf-Mt-Rlku Pager: [phone] October 08, 2024 9:13 AM * Eileen [...] FREET4 0.74 09/03/2024 Diagnostic Studies US Duplex Wsl-Vka-Axhxrew Comp Final Result IMPRESSION: ABDOMEN 1. Cirrhotic [...] no head imaging has been performed at [facility]. -CT Head w/o contrast -Imaging showed [...] Order Questions: Select Supplement: Boost-1 kcal/ml supplement ([facility] only) Code Status: Full Code Signed: [...] I reviewed the documentation by the medical guest service team leader and agree as documented. [...] (acute kidney injury) on CKD ([facility]): Appreciate nephrology consult. Likely has [...] Problem: Metabolic encephalopathy Active Problems: Decompensated cirrhosis ([facility]) Acute kidney injury superimposed on CKD ([facility]) Thrombocytopenia ([facility]) Renal mass, left Metabolic acidosis with normal anion gap and bicarbonate losses GERD (gastroesophageal reflux disease) Anemia SBP (spontaneous bacterial peritonitis) ([facility]) Neck pain with history of cervical [...] another specialty or practice, other licensed professional (PT/OT/CELL STRIPPER/RT), or a non-medical community professional: Nephrology, Hepatology [...] Gilbert Date of Admit: 10/05/2024 Referring physician: Fouzai Rene MD Interval hx Seen and examined Still with intermittent confusion per at bedside, 24 hour urine output not documented Cr 3.10<3.38 < 3.4 Assessment: Renal Function: Cr: 3.10 Bun: 61 on 10/08/2024 NADIYA on CKD, last discharge creatinine 2.4 Likely HRS UA bland Urine lytes <10/< 15/ 50 Recent admission in August with NADIAY in context of decompensated cirrhosis treated in [...] Strictly monitor urine output No Indication for COUPON REDEMPTION CLERK Not a candidate for terlipressin per liver due to HE, liver ans kidney failure, on midodrine tid Liver transplant workup per GI/ Primary team, considering for SLK Thank you for allowing us to participate in this patient's care. Discussed with Consult Staff. Ignacio Queen MD Renal Fellow Pager # [phone] Chief Complaint No chief complaint on file. [...] concern for hepatorenal syndrome.` Patient came from [facility], paracentesis was performed yesterday on [...] TIBC , FERRITIN No results found for: [id number] , FOLATE Lab Results Component Value Date [...] <15 No results found for: MICROALBUR , [id number] In addition to the above an extensive [...] 4.0 10/08/2024 Lab Results Component Value Date IDAW41V 7.1 (L) 10/08/2024 PLAN Continue IV albumin [...] AM Colten Huertas MD, KISHOR LIN, FNKF whale trainer Div. of Nephrology [facility] E-mail: [email or web address] This note was completely edited, [...] from the original note were not included. [facility] Clinical Pharmacy Service: Vancomycin Monitoring Consult [...] AM #2 Blood culture-Peripheral site 2 Preliminary [id number] Peripheral 10/06/2024 1:04 AM #1 Blood culture-Peripheral site 1 Preliminary [id number] Peripheral --Vancomycin Concentrations-- Lab Results (Last 7 [...] for the consult. Jodi Ortiz PharmD Clinical Fuel Attendant, Internal Medicine Preferred contact: [employer] Clinical Bvbwqef-Ke-Jiiu Pager: [phone] October 07, 2024 5:01 PM * Yamile [...] Peterson MD - 10/07/2024 11:33 AM EDT [facility] HEPATOLOGY PROGRESS NOTE Name: Julien Gilbert CSN: [id number] Consulted by: Fouzia Rene MD Reason for [...] Renal cell carcinoma (CMS-HCC) Thrombocytopenia ([facility]) Thyroid disease No past surgical [...] nucleated cells, <2000 RBCs 10% Polynuclear, 90% Horry nuc. Fluid cultures reportedly grewgram + rods. [...] liver selection meeting and clearance by social media intern. Please order CT cardiac coronary evaluation, transplant [...] Strictly monitor urine output No Indication for COUPON REDEMPTION CLERK Liver transplant workup per GI/ Primary team Thank you for allowing us to participate in this patient's care. Discussed with Consult Staff. Ignacio Queen MD Renal Fellow Pager # [phone] Chief Complaint No chief complaint on file. [...] concern for hepatorenal syndrome.` Patient came from [facility], paracentesis was performed yesterday on [...] TIBC , FERRITIN No results found for: [id number] , FOLATE Lab Results Component Value Date [...] <15 No results found for: MICROALBUR , [id number] In addition to the above an extensive [...] PHOS 4.2 10/07/2024 No results found for: QJTB90W PLAN Continue IV albumin Monitor renal panel [...] AM Colten Huertas MD, KISHOR LIN FNKF whale trainer Div. of Nephrology [facility] E-mail: [email or web address] * Carmen Dolorse, OT - 10/07/2024 11:09 AM EDT Occupational Therapy Initial Assessment and Discharge Name: Julien Gilbert : 1985 Attending Physician: Fouzia Rene MD Admission Diagnosis: AMS Date: 10/07/2024 Room: 42/[facility] Reviewed Pertinent hospital course: Yes [...] at 10/06/2024 2:33 AM EDT US Duplex Osq-Cqm-Mzzynje Comp (Results Pending) US Abdomen Complete (Results [...] no head imaging has been performed at [facility]. -CT Head w/o contrast -Imaging showed [...] Order Questions: Select Supplement: Boost-1 kcal/ml supplement ([facility] only) Code Status: Full Code Signed: [...] I reviewed the documentation by the medical guest service team leader and agree as documented. [...] and rifaximin Spontaneous Bacterial Peritonitis ([facility]): Cultures from OSH are growing gram- positive organisms.He is on vancomycin and ceftriaxone for now. Will follow-up on speciation and sensitivities. For now, he is afebrile and his white counts have trended down and mental status is improving. Decompensated cirrhosis ([facility]): Appreciate hepatology consult. He has started his transplant evaluation as an outpatient. We will follow-up with hepatology to discuss any inpatient testing that may need to be needed. - MELD labs daily - Continue home regimen with ursodiol, rifaximin and lactulose NADIYA (acute kidney injury) ([facility]): Appreciate nephrology consult. Likely has [...] stage 4, GFR 15-29 ml/min ([facility]) Metabolic acidosis with normal anion [...] another specialty or practice, other licensed professional (PT/OT/CELL STRIPPER/RT), or a non-medical community professional: Nephrology, Hepatology Labs reviewed (1 pt each): CMP, CBC Test results reviewed (1 pt each): CXR, Head CT Review of notes from a different specialty or different practice: Nephrology, hepatology Use of parenteral controlled substances * Kiet Gardiner, PharmD - 10/06/2024 1:07 PM EDT Images from the original note were not included. [facility] Clinical Pharmacy Service: Vancomycin Monitoring Consult [...] AM #2 Blood culture-Peripheral site 2 Preliminary [id number] Peripheral 10/06/2024 1:04 AM #1 Blood culture-Peripheral site 1 Preliminary [id number] Peripheral --Vancomycin Concentrations-- Lab Results (Last 7 [...] US Retroperitoneal complete (Results Pending) US Duplex Ccb-Vmc-Amcdyrq Comp (Results Pending) CT Head WO contrast [...] tolerate beta dominic due to hypotension. #Non-Oliguric NAIDYA on CKD Patient noted on OSH labs [...] PM EDT Hospital Medicine Attending Supervision Note [facility] // [facility] Julien Gilbert was seen 10/06/24 [...] Lerner MD - 10/05/2024 2:42 PM EDT [facility] Department of Medicine TRANSFER CALL NOTE [...] nearest ED, with plan to transfer to [facility] if needing admission. In the ED, [...] Studies: Na 129 K 4.2 Cl 101 Tgagsx86 BUN 62 (up from baseline) Cr 3.6 [...] Quan MD - 10/14/2024 1:10 PM EDT [facility] PRE-SEDATION ASSESSMENT, HISTORY & PHYSICAL [...] Abbreviated Review of Systems (ROS) Functional Capacity: SUMENR ACTIVITY SCALE: 1 - Eating, getting dressed; [...] Neuro: AOx3 AUC For Cath Indication(s) for Licensing Analyst Visit: Visit Indicators: Suspected CAD 2. Chest Pain Symptom Assessment: Asymptomatic 3. Heart Failure: Yes Class II 4. CHSA Clinical Frailty Scale: Mildly Frail Sedation Plan: Moderate Sedation with Local Anesthesia Antibiotic prophylaxis is not indicated. Mani Quan Interventional Director Of Institutional Sales Pager: [phone] [1] Patient Active Problem List Diagnosis Decompensated cirrhosis ([facility]) Acute kidney injury superimposed on CKD ([facility]) Alcohol use disorder Metabolic encephalopathy Hypertension Other hyperlipidemia Thrombocytopenia ([facility]) Renal mass, left Abdominal pain Hypokalemia CKD (chronic kidney disease) stage 4, GFR 15-29 ml/min ([facility]) Metabolic acidosis with normal anion gap and bicarbonate losses GERD (gastroesophageal reflux disease) Hypothyroidism Itching Anemia BRBPR (bright red blood per rectum) SBP (spontaneous bacterial peritonitis) ([facility]) C Diff Diarrhea C. difficile diarrhea Neck pain with history of cervical spinal surgery Cosigned by Irving Matta MD at 10/16/2024 10:54 AM EDT Associated attestation - Irving Matta MD - 10/16/2024 10:54 AM EDT Agree * Gerri Peterson MD - 10/10/2024 10:05 AM EDT [facility] PRE-SEDATION ASSESSMENT, HISTORY & PHYSICAL [...] Problem List Diagnosis Decompensated cirrhosis ([facility]) Acute kidney injury superimposed on CKD ([facility]) Alcohol use disorder Metabolic encephalopathy Hypertension Other hyperlipidemia Thrombocytopenia ([facility]) Renal mass, left Abdominal pain Hypokalemia CKD (chronic kidney disease) stage 4, GFR 15-29 ml/min ([facility]) Metabolic acidosis with normal anion gap and bicarbonate losses GERD (gastroesophageal reflux disease) Hypothyroidism Itching Anemia BRBPR (bright red blood per rectum) SBP (spontaneous bacterial peritonitis) ([facility]) C Diff Diarrhea C. difficile diarrhea [...] Resource Strain: Low Risk (07/09/2024) Received from [facility] Overall Financial Resource Strain (CARDIA) Difficulty [...] Activity: Unknown (07/14/2024) Received from [facility] Exercise Vital Sign Days of Exercise per Week: Patient unable to answer Minutes of Exercise per Session: Not on file Stress: Patient Unable To Answer (07/14/2024) Received from [facility] [place] of Occupational Health - Occupational Stress Questionnaire Feeling of Stress : Patient unable to answer Social Connections: Patient Unable To Answer (07/14/2024) Received from [facility] Social Connection and Isolation Panel [NHANES] Frequency of Communication with Friends and Family: Patient unable to answer Frequency of Social Gatherings with Friends and Family: Patient unable to answer Attends Confucianism Services: Patient unable to answer Active Member [...] atropine 0.25-0.5 mg Q5 Min PRN Tonya Henirquez MD cefTRIAXone (ROCEPHIN) IVPB 2 g Q24H [...] values in this interval not displayed. Imaging: @[id number]@ I have personally reviewed the imaging and have noted the following: Large recanalized umbilical vein Perihilar varices Replaced right hepatic artery Splenomegaly Spontaneous splenorenal shunt Large volume ascites, No portal vein thrombosis Assessment/Plan: A 39 y.o. male with ETOH decompensated by ascites, hepatic encephalopathy,bleeding esophageal Varices. Use and allocation of SCD, VORTEX OPERATOR, DCD and LDLT allografts discussed in detail. [...] Sahni MD, Fellow, Multiorgan Abdominal Transplant Surgery. [facility]. 10/09/2024 3:16 PM [1] Allergies [...] Ortiz MD - 10/06/2024 12:00 AM EDT [facility] Internal Medicine - History and [...] taken to Radiology overnight for imaging upload. [facility] performed a bedside paracentesis and sent studies for SBP analysis. [facility] to see if labs have resulted. Review of Systems 14 pt ROS conducted and negative aside from that mentioned in above HPI Past Medical and Social History Lives in [place], [place] at bedside Notes that the patient [...] OSH Repeat labs pending on admission to [facility] Assessment & Plan Julien Gilbert is [...] AM EDT Hospital Medicine Attending Supervision Note [facility] // [facility] Julien Gilbert was seen 10/06/24 [...] and lethargy. HE was seen at [facility] ED were CT head unremarkable and RUQ with gallstones, abdominal ascites diagnostic para done and started on empiric CTX. Labs remarkable at OSH for K 4.2 Cl 101 Iumexe58 BUN 62 (up from baseline) Cr 3.6 [...] another specialty or practice, other licensed professional (PT/OT/CELL STRIPPER/RT), or a non-medical community professional: ed team [...] Medicine Department of Internal Medicine Pager ID: [phone] 6:04 AM, 10/06/2024 documented in this encounter [...] CNP Vascular & Interventional Radiology 10/10/2024,1:55 PM [facility]: [phone] * Lino Soto MD - 10/10/2024 12:06 PM EDT EGD Brief Op Note Julien Gilbert 10/05/2024 - 10/10/2024 Pre-op Diagnosis: Alcoholic cirrhosis of liver with ascites (CMS-HCC) [K70.31] Post-op Diagnosis: Portal gastropathy, Medium size, non-bleeding esophageal varices Procedure(s): EGD Surgeon(s): Lino Soto MD Anesthesia: MAC (Monitor Anesthesia Care) Staff: Fellow: Gerri Peterson MD Endoscopy Nurse: Kandice Castaneda RN Belt Changer: Diana Kemp Estimated Blood Loss: Minimal Specimens: Drains: There were no complications unless listed below. LINO SOTO MD Date: 10/10/2024 Time: 12:18 PM * Lino Soto MD - 10/10/2024 11:48 AM EDT [id number] Procedure Date: 10/10/2024 11:48 AM Patient Name: Julien Gilbert Date of : 1985 Admit Type: Inpatient Age: 39 Gender: Male Note Status: Finalized Attending MD: Lino Soto MD, [id number] Procedure: Upper GI endoscopy Indications: Gastroesopahgeal variceal [...] verified by the physician, the nurse, the kapok machine operator and the platform power technician in the pre-procedure area in the [...] to hypotension Procedure Code(s): --- Professional --- 75818, GC, Esophagogastroduodenoscopy, flexible, transoral; diagnostic, including collection of specimen(s) by brushing or washing, when performed (separate procedure) Diagnosis Code(s): --- Professional --- I85.00, Esophageal varices without bleeding K76.6, Portal hypertension K31.89, Other diseases of stomach and duodenum CPT copyright 2022 [employer]. All rights reserved. The codes documented in this report are preliminary and upon inpatient coder review may be revised to meet [...] In: 12:10:16 PM Scope Out: 12:17:[address] [place] [address], [id number] * Gill Le RN - 10/09/2024 4:00 [...] pain in his accessory muscles with breathing.Naomi rGeen is here with the patient, which was [...] time. 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 Describes significant anxiety that [...] need for sleep. [facility] [...] mother is and his father resides in [facility]. Patient earned a graduate degree and never served in the . 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 He was raised Yazidism and denied current engagement in any community [...] from the original note were not included. [facility] General Cardiology Consult Note Referring [...] at baseline or with provocation, shows no qnsuk-er-byec atrial level shunt. - Pulmonary arteries: Systolic [...] 10/13/24, please keep NPO on 10/12/24 at [place] Risks and benefits of new therapies added and new invasive and non-invasive procedures/diagnostic testing planned discussed with and understood by the patient/family who agree with the above plan. Plan discussed with the attending physician Dr. Blanco. Recommendations are preliminary until this note is co- signed by the attending. Follow up appointments with Cardiology can be scheduled by calling [phone]. Thank you for the opportunity to participate in this patient's care. Please call orpage with any questions. Leonor Garcia MD Director Of Institutional Sales I have personally seen, examined, reviewed all [...] 0659 10/11/24 0700 - 10/12/24 0659 Shift [id number] 8486-4437 24 Hour Total 1551-5458 0809-4012 4271-0710 24 Hour Total INTAKE P.O. 3213 701 7546 P.O. 9933 767 5663 Boost (mL) - [facility] only 240 240 I.V.(mL/kg) 450(3.8) Volume [...] (See Comments) Became Manic * Bakari Wahl LOCK MAINTENANCE SUPERVISOR - 10/10/2024 10:07 AM EDT Interventional [...] EZEKIEL Vascular & Interventional Radiology 10/10/2024,1:54 PM [facility]: [phone]) [1] Social History Tobacco Use Smoking Status [...] EDTAssociated Order(s): IP CONSULT TO INFECTIOUS DISEASES [facility] DEPARTMENT OF INFECTIOUS DISEASE INITIAL NOTE Referring Physician: Fouzia Rene MD Consult Attending: Daria Garcia Patient: Julien Gilbert CSN: [id number] Reason for Consult: CC: Abx management History [...] HE. He was born and raised in [facility] . No travel to the [facility]. 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 [...] Resource Strain: Low Risk (07/09/2024) Received from [facility] Overall Financial Resource Strain (CARDIA) Difficulty [...] Activity: Unknown (07/14/2024) Received from [facility] Exercise Vital Sign Days of Exercise per Week: Patient unable to answer Minutes of Exercise per Session: Not on file Stress: Patient Unable To Answer (07/14/2024) Received from [facility] [place] of Occupational Health - Occupational Stress Questionnaire Feeling of Stress : Patient unable to answer Social Connections: Patient Unable To Answer (07/14/2024) Received from [facility] Social Connection and Isolation Panel [NHANES] Frequency of Communication with Friends and Family: Patient unable to answer Frequency of Social Gatherings with Friends and Family: Patient unable to answer Attends Confucianism Services: Patient unable to answer Active Member [...] day. Qty: 60 tablet, Refills: 0 Comments: [facility] [place] [address] sodium bicarbonate 650 MG tablet Take 2 [...] 10/06/2024 SBP (spontaneous bacterial peritonitis) ([facility]) [K65.2] 09/08/2024 Metabolic acidosis with normal anion gap and bicarbonate losses [E87.20] 09/03/2024 CKD (chronic kidney disease) stage 4, GFR 15-29 ml/min ([facility]) [N18.4] 09/03/2024 GERD (gastroesophageal reflux disease) [K21.9] 09/03/2024 Renal mass, left [N28.89] 08/18/2024 Thrombocytopenia ([facility]) [D69.6] Decompensated cirrhosis ([facility]) [K72.90, K74.60] 07/25/2024 NADIYA (acute kidney injury) ([facility]) [N17.9] 07/25/2024 Resolved Hospital Problems No resolved [...] Signed: Daria Garcia MD 10/08/2024, 9:46 AM [phone] [1] Allergies Allergen Reactions Adhesive Itching and [...] Resource Strain: Low Risk (07/09/2024) Received from [facility] Overall Financial Resource Strain (CARDIA) Difficulty [...] Activity: Unknown (07/14/2024) Received from [facility] Exercise Vital Sign Days of Exercise per Week: Patient unable to answer Minutes of Exercise per Session: Not on file Stress: Patient Unable To Answer (07/14/2024) Received from [facility] [place] [facility] Occupational Health - Occupational Stress Questionnaire Feeling of Stress : Patient unable to answer Social Connections: Patient Unable To Answer (07/14/2024) Received from [facility] Social Connection and Isolation Panel [NHANES] Frequency of Communication with Friends and Family: Patient unable to answer Frequency of Social Gatherings with Friends and Family: Patient unable to answer Attends Confucianism Services: Patient unable to answer Active Member [...] is no recent study available for direct wbay-se-ghay comparison. Left Ventricle The left ventricle is [...] 35 mmHgon resting echo from [facility] 07/15/24. No ischemic workup noted. ECG from [...] surgery with risk (OLT/OKT) Los Broussard MD, [facility] Department of Anesthesiology [1] Allergies Allergen Reactions Adhesive Itching and Rash Tegaderm adhesive on Ivs, pt states its tolerable Duloxetine Other (See Comments) Became Manic [2] Patient Active Problem List Diagnosis Decompensated cirrhosis ([facility]) NADIYA (acute kidney injury) ([facility]) Alcohol use disorder Metabolic encephalopathy Hypertension Other hyperlipidemia Thrombocytopenia ([facility]) Renal mass, left Abdominal pain Hypokalemia CKD (chronic kidney disease) stage 4, GFR 15-29 ml/min ([facility]) Metabolic acidosis with normal anion gap and bicarbonate losses GERD (gastroesophageal reflux disease) Hypothyroidism Itching Anemia BRBPR (bright red blood per rectum) SBP (spontaneous bacterial peritonitis) ([facility]) C Diff Diarrhea C. difficile diarrhea Aphasia [...] MD PCP: Enedina Mcguire NP Home Pharmacy: [facility] [address] [place], [place] [address] [address] [facility] [address] [facility] [address] Issues related to obtaining medications: Payor Information Medical Insurance Coverage: Payor: [facility] / Plan: [facility] [...] and lethargy. HE was seen at [facility] ED were CT head unremarkable and RUQ with gallstones, abdominal ascites diagnostic para done and started on empiric CTX. BSN RN Broodmare Barn Groom Neisha Fuentes met with patient at bedside [...] health concerns or diagnoses. He has used [facility] to aide with his mental health. Patient denies current alcohol misuse, tobacco, and/or drug or illicit substance use. Previously hedid drink alcohol. No history of care home facility or inpatient rehabilitation facility admissions [...] are disclosed as appropriate. Kandy Fuentes BSN [facility] * Gladys Daltonlatisha, CELL STRIPPER - 10/07/2024 11:15 AM EDT Speech Language Pathology Speech, Language and Cognitive Initial Assessment Name: Julien Gilbert : 1985 Attending Physician: Fouzia Rene MD Admission Diagnosis: AMS Date: 10/07/2024 Reviewed Pertinent hospital course: Yes Hospital Course CELL STRIPPER: 39 y/o male with a past medical [...] 2. No intracranial mass effect or hemorrhage. CELL STRIPPER Hx: 08/15/24: BSE with recs for regular [...] if new needs arise. No further acute CELL STRIPPER services are warranted for speech, language, or cognition at this time. Plan/Recommendation: - Discharge from CELL STRIPPER - no acute needs at this time - CELL STRIPPER at discharge is not recommended Problem List Problem List[1] Past Medical History Past Medical History: Diagnosis Date Alcoholic cirrhosis of liver (CMS-HCC) Alcoholic hepatitis Esophageal varices (CMS-HCC) Hepatorenal syndrome (CMS-HCC) Hypertension Other hyperlipidemia 07/26/2024 Renal cell carcinoma ([facility]) Thrombocytopenia ([facility]) Thyroid disease Past Surgical History No past [...] Patient educated on: Family educated on;role of CELL STRIPPER, current POC, and discharge recommendations forSLP therapy Patient response: Patient verbalized understanding;Family demonstrated understanding End of Session: Patient was left in bed with call light within reach and all needs met. Gladys Banda M.A, YUE-CELL STRIPPER Speech Language Pathologist--Rehab Services [facility] MBSImP Certified Clinician Time Start Time: 1055 Stop Time: 1109 Time Calculation (min): 14 min Charges $Eval Speech Sound Prd w/Lng Comp & Expr: 1 Procedure Patient Class Inpatient [1] Patient Active Problem List Diagnosis Decompensated cirrhosis ([facility]) NADIYA (acute kidney injury) ([facility]) Alcohol use disorder Metabolic encephalopathy Hypertension Other hyperlipidemia Thrombocytopenia ([facility]) Renal mass, left Abdominal pain Hypokalemia CKD (chronic kidney disease) stage 4, GFR 15-29 ml/min ([facility]) Metabolic acidosis with normal anion gap [...] NAGMA related to diarrhea No Indication for COUPON REDEMPTION CLERK Liver transplant workup per GI/ Primary team Thank you for allowing us to participate in this patient's care. Discussed with Consult Staff. Ignacio Queen MD Renal Fellow Pager # [phone] Chief Complaint No chief complaint on file. [...] concern for hepatorenal syndrome.` Patient came from [facility], paracentesis was performed yesterday on [...] TIBC , FERRITIN No results found for: [id number] , FOLATE Lab Results Component Value Date [...] CRUR No results found for: MICROALBUR , [id number] In addition to the above an extensive [...] 5.3 (H) 10/06/2024 No results found for: [id number] PLAN Patient seen labs reviewed Unclear baseline serum creat Recent episode of acute kidney injury requiring hospitalization Now has [id number] episode of NADIYA Underwent paracentesis 3 days [...] team Colten Huertas MD, KISHOR LIN, CATHYF whale trainer Div. of Nephrology [facility] E-mail: [email or web address] * Jerad Hughes MD - 10/06/2024 9:28 AM EDTAssociated Order(s): IP CONSULT TO LIVER [facility] HEPATOLOGY CONSULT NOTE Name: Julien Gilbert CSN: [id number] Consulted by: Angie Blanchard MD Reason for [...] to diarrhea. Patient was recently referred to [facility] for liver transplant evaluation. Patient was evaluated by transplant social media intern on 09/25/2024 and it was determined that [...] verbalize understanding. Transported via wheelchair to the [facility] to bepicked up for a lyft. * Dylan Dong RN - 10/14/2024 2:20 PM EDT Pt returned from seed laboratory technician status post [facility]. Bedside report received from seed laboratory technician, RN. Pt placed on telemetry, serial vital signs set up. Access site: RRA. Site is soft, no bleeding/hematoma, [address] Sheath removed in seed laboratory technician at 1402, TR band placed [...] arrived with and admitted into 81 from [facility] with AMS. Hosiptalist [...] Patient will remain free of falls Goal: [place] Fall Precautions Outcome: Progressing Problem: Daily Care [...] of liver (CMS-HCC), Esophageal varices ([facility]), Hepatorenal syndrome ([facility]), Hypertension, Other hyperlipidemia (07/26/2024), Renal cell carcinoma ([facility]), Thrombocytopenia ([facility]), and Thyroid disease. PCP: Enedina Mcguire NP Home Pharmacy: [facility] [address] [place] [address], [facility] [address] [address] [facility] [address] [facility] [address] Medical Insurance Coverage: Payor: [facility] / Plan: [facility] [...] Patient will remain free of falls Goal: [place] Fall Precautions Outcome: Progressing Problem: Daily Care [...] Patient will remain free of falls Goal: [place] Fall Precautions Outcome: Progressing Problem: Daily Care [...] Kandy Fuentes - 10/15/2024 2:26 PM EDT [facility] Case Management/Social Work Department Progress Note Patient Information Patient Name: Julien Gilbert Hospital day: 10 Inpatient/Observation: Inpatient Level of Care: blue Admit date: 10/05/2024 Admission diagnosis: AMS PMH: has a past medical history of Alcoholic cirrhosis of liver (CMS-HCC), Esophageal varices ([facility]), Hepatorenal syndrome (CMS-HCC), Hypertension, Other hyperlipidemia (07/26/2024), Renal cell carcinoma (CMS-HCC), Thrombocytopenia ([facility]), and Thyroid disease. PCP: Enedina Mcguire NP Home Pharmacy: [facility] [address] [address] [facility] [address] [facility] [address] Medical Insurance Coverage: Payor: [facility] / Plan: [facility] [...] available for discharge planning needs. Kandy BAE [facility] * Plan of Care - Anu [...] Patient will remain free of falls Goal: [place] Fall Precautions Outcome: Progressing Problem: Daily Care [...] Kandy Fuentes - 10/14/2024 11:10 AM EDT [facility] Case Management/Social Work Department Progress Note Patient Information Patient Name: Julien Gilbert Hospital day: 9 Inpatient/Observation: Inpatient Level of Care: blue Admit date: 10/05/2024 Admission diagnosis: AMS PMH: has a past medical history of Alcoholic cirrhosis of liver (CMS-HCC), Esophageal varices ([facility]), Hepatorenal syndrome ([facility]), Hypertension, Other hyperlipidemia (07/26/2024), Renal cell carcinoma ([facility]), Thrombocytopenia ([facility]), and Thyroid disease. PCP: Enedina Mcguire NP Home Pharmacy: [facility] [address] [place] [id number] [facility] [address] [facility] [address] Medical Insurance Coverage: Payor: [facility] / Plan: [facility] [...] Kandy Fuentes - 10/13/2024 11:53 AM EDT [facility] Case Management/Social Work Department Progress Note Patient Information Patient Name: Julien Gilbert Hospital day: 8 Inpatient/Observation: Inpatient Level of Care: blue Admit date: 10/05/2024 Admission diagnosis: AMS PMH: has a past medical history of Alcoholic cirrhosis of liver (CMS-HCC), Alcoholic hepatitis, Esophageal varices (CMS-HCC), Hepatorenal syndrome ([facility]), Hypertension, Other hyperlipidemia (07/26/2024), Renal cell carcinoma ([facility]), Thrombocytopenia ([facility]), and Thyroid disease. PCP: Enedina Mcguire NP Home Pharmacy: [facility] [address] [place] [address], [facility] [address] [address] [facility] [address] [facility] [id number] Medical Insurance Coverage: Payor: [facility] / Plan: [facility] [...] available for discharge planning needs. Kandy BAE [facility] * Plan of Care - Gerda [...] Kandy Fuentes - 10/10/2024 12:00 PM EDT [facility] Case Management/Social Work Department Progress Note [...] Home Pharmacy: [facility] [place] [address] [address] [facility] [address] [facility] [address] Medical Insurance Coverage: Payor: [facility] / Plan: [facility] [...] available for discharge planning needs. Kandy BAE [facility] * Plan of Care - Jodi [...] Patient will remain free of falls Goal: [place] Fall Precautions Outcome: Progressing Problem: Daily Care [...] Patient will remain free of falls Goal: [place] Fall Precautions Outcome: Progressing Problem: Daily Care [...] Kandy Fuentes - 10/09/2024 12:05 PM EDT [facility] Case Management/Social Work Department Progress Note [...] Home Pharmacy: [facility] LIZ LUCIO [address] [address] [facility] [address] [facility] [id number] Medical Insurance Coverage: Payor: [facility] / Plan: [facility] [...] Kandy Fuentes - 10/08/2024 3:41 PM EDT [facility] Case Management/Social Work Department Progress Note Patient Information Patient Name: Julien Gilbert Hospital day: 3 Inpatient/Observation: Inpatient Level of Care: blue Admit date: 10/05/2024 Admission diagnosis: AMS PMH: has a past medical history of Alcoholic cirrhosis of liver (CMS-HCC), Alcoholic hepatitis, Esophageal varices ([facility]), Hepatorenal syndrome ([facility]), Hypertension, Other hyperlipidemia (07/26/2024), Renal cell carcinoma ([facility]), Thrombocytopenia ([facility]), and Thyroid disease. PCP: Enedina Mcguire NP Home Pharmacy: [facility] [address] [place] [address] [place] [address] [facility] [address] [facility] [address] Medical Insurance Coverage: Payor: [facility] / Plan: [facility] [...] Kandy Fuentes - 10/07/2024 3:22 PM EDT [facility] Case Management/Social Work Department Progress Note Patient Information Patient Name: Julien Gilbert Hospital day: 2 Inpatient/Observation: Inpatient Level of Care: blue Admit date: 10/05/2024 Admission diagnosis: AMS PMH: has a past medical history of Alcoholic cirrhosis of liver (CMS-HCC), Alcoholic hepatitis, Esophageal varices ([facility]), Hepatorenal syndrome ([facility]), Hypertension, Other hyperlipidemia (07/26/2024), Renal cell carcinoma ([facility]), Thrombocytopenia ([facility]), and Thyroid disease. PCP: Enedina Mcguire NP Home Pharmacy: [address] [address] [facility] [address] [facility] [id number] Medical Insurance Coverage: Payor: [facility] / Plan: [facility] [...] Patient will remain free of falls Goal: [place] Fall Precautions Outcome: Progressing Problem: Daily Care [...] Description 12/05/2024 8:01 AM EDT Hospital Encounter [facility] ENDOSCOPY [address] [place] [address] Chris Orosco MD [address] [place] [phone] 12/05/2024 8:01 AM EDT - 12/05/2024 8:31 AM EDT Surgery [facility] ENDOSCOPY [address] [place] [address] Chris Orosco MD [address] [place] [phone] EGD Scheduled Procedures Name Priority Associated Diagnoses Date/Ti me EGD Cirrhosis of liver with ascites, unspecified hepatic cirrhosis type ([facility]) 12/05/2024 8:01 AM EDT documented [...] IGG ANTIBODY Routine 10/07/2024 6:37 PM EDT [id number] (AAT) QUANTITATION & MUTATION Routine 10/07/2024 6:37 [...] Routine 10/07/2024 6:19 PM EDT US DUPLEX [id number] COMPLETE Routine 10/07/2024 3:48 PM EDT US [...] 10/06/2024 4:01 AM EDT UPPER RESPIRATORY VIRAL/BACTERIAL PANEL-QA SPECIALIST ONLY Routine 10/06/2024 3:12 AM EDT XR [...] - 146 mmol/L 10/17/2024 7:02 AM EDT [facility] Potassium 3.4(L) 3.5 - 5.3 mmol/L 10/17/2024 7:02 AM EDT [facility] Chloride 104 98 - 110 mmol/L 10/17/2024 7:02 AM EDT [facility] CO2 18(L) 21 - 33 mmol/L 10/17/2024 7:02 AM EDT [facility] Anion Gap 11 3 - 16 mmol/L 10/17/2024 7:02 AM EDT [facility] BUN 54(H) 7 - 25 mg/dL 10/17/2024 7:02 AM EDT [facility] Creatinine 2.88(H) 0.60 - 1.30 mg/dL 10/17/2024 7:02 AM EDT [facility] Glucose 127(H) 70 - 100 mg/dL 10/17/2024 7:02 AM EDT [facility] Calcium 8.2(L) 8.6 - 10.3 mg/dL 10/17/2024 7:02 AM EDT [facility] Phosphorus 4.5 2.1 - 4.7 mg/dL 10/17/2024 7:02 AM EDT [facility] Albumin 3.1(L) 3.5 - 5.7 g/dL 10/17/2024 7:02 AM EDT [facility] Osmolality, Calculated 292 278 - 305 mOsm/kg 10/17/2024 7:02 AM EDT [facility] EGFR 27 10/17/2024 7:02 AM EDT [facility] Comment:As of 2021, the [...] BLOOD ORDERABLES Final Result Performing Organization Address [facility] Co de Phone Number [facility] [address] [facility] * (ABNORMAL) Protime-INR (10/16/2024 6:31 AM EDT) Protime 22.5(H) 12.1 - 15.1 seconds 10/16/2024 8:04 AM EDT [facility] INR 1.9(H) 0.9 - 1.1 10/16/2024 8:04 AM EDT [facility] Comment: RECOMMENDED THERAPEUTIC RANGES USING INR : Stable oral anticoagulant therapy: 2.0 - 3.0 Mechanical prosthetic heart valve: 2.5 - 3.5 Recurrent acute myocardial infarction: 2.5 - 3.5 Plasma 10/16/2024 6:31 AM EDT 10/16/2024 6:56 AM EDT us Eileen Schroeder MD, PhD LAB BLOOD ORDERABLES Final Result Performing Organization Address [facility] Co de Phone Number [facility] [address] [facility] * (ABNORMAL) Hepatic Function Panel (10/16/2024 6:31 AM EDT) Total Bilirubin 7.6(H) 0.0 - 1.5 mg/dL 10/16/2024 7:24 AM EDT [facility] Bilirubin, Direct 3.97(H) 0.00 - 0.40 mg/dL 10/16/2024 7:24 AM EDT [facility] AST 45(H) 13 - 39 U/L 10/16/2024 7:24 AM EDT [facility] ALT 23 7 - 52 U/L 10/16/2024 7:24 AM EDT [facility] Alkaline Phosphatase 137(H) 36 - 125 U/L 10/16/2024 7:24 AM EDT [facility] Total Protein 5.1(L) 6.4 - 8.9 g/dL 10/16/2024 7:24 AM EDT [facility] Albumin 3.4(L) 3.5 - 5.7 g/dL 10/16/2024 7:24 AM EDT [facility] Bilirubin, Indirect 3.63(H) 0.00 - 1.10 mg/dL 10/16/2024 7:24 AM EDT [facility] Plasma 10/16/2024 6:31 AM EDT 10/16/2024 6:56 AM EDT Eileen Schroeder MD, PhD LAB BLOOD ORDERABLES Final Result Performing Organization Address City/[facility]/ZIP Co de Phone Number [facility] [address] [place] [address] * Magnesium (10/16/2024 6:31 AM EDT) Magnesium 2.1 1.5 - 2.5 mg/dL 10/16/2024 7:24 AM EDT [facility] Plasma 10/16/2024 6:31 AM EDT 10/16/2024 6:56 AM EDT Eileen Schroeder MD, PhD LAB BLOOD ORDERABLES Final Result [facility] [address] * (ABNORMAL) Renal Function Panel w/EGFR (10/16/2024 6:31 AM EDT) Sodium 135 133 - 146 mmol/L 10/16/2024 7:24 AM EDT [facility] Potassium 3.7 3.5 - 5.3 mmol/L 10/16/2024 7:24 AM EDT [facility] Chloride 106 98 - 110 mmol/L 10/16/2024 7:24 AM EDT [facility] CO2 16(L) 21 - 33 mmol/L 10/16/2024 7:24 AM EDT [facility] Anion Gap 13 3 - 16 mmol/L 10/16/2024 7:24 AM EDT [facility] BUN 55(H) 7 - 25 mg/dL 10/16/2024 7:24 AM EDT [facility] Creatinine 3.20(H) 0.60 - 1.30 mg/dL 10/16/2024 7:24 AM EDT [facility] Glucose 121(H) 70 - 100 mg/dL 10/16/2024 7:24 AM EDT [facility] Calcium 8.5(L) 8.6 - 10.3 mg/dL 10/16/2024 7:24 AM EDT [facility] Phosphorus 4.2 2.1 - 4.7 mg/dL 10/16/2024 7:24 AM EDT [facility] Albumin 3.4(L) 3.5 - 5.7 g/dL 10/16/2024 7:24 AM EDT [facility] Osmolality, Calculated 296 278 - 305 mOsm/kg 10/16/2024 7:24 AM EDT [facility] EGFR 24 10/16/2024 7:24 AM EDT [facility] Comment:As of 2021, the [...] MD, PhD LAB BLOOD ORDERABLES Final Result [facility] [address] [place] [address], [facility] * (ABNORMAL) CBC (10/16/2024 6:31 AM EDT) WBC 5.8 3.8 - 10.8 10E3/uL 10/16/2024 8:00 AM EDT [facility] RBC 2.16(L) 4.20 - 5.80 10E6/uL 10/16/2024 8:00 AM EDT [facility] Hemoglobin 7.7(L) 13.2 - 17.1 g/dL 10/16/2024 8:00 AM EDT [facility] Hematocrit 22.1(L) 38.5 - 50.0 % 10/16/2024 8:00 AM EDT [facility] MCV 102.3(H) 80.0 - 100.0 fL 10/16/2024 8:00 AM EDT [facility] MCH 35.7(H) 27.0 - 33.0 pg 10/16/2024 8:00 AM EDT [facility] MCHC 34.9 32.0 - 36.0 g/dL 10/16/2024 8:00 AM EDT [facility] RDW 17.7(H) 11.0 - 15.0 % 10/16/2024 8:00 AM EDT [facility] Platelets 43(L) 140 - 400 10E3/uL 10/16/2024 8:00 AM EDT [facility] Comment: Specimen checked for clots. None detected. Slide Reviewed for PLT Clumps. None Seen. Platelet Estimate Decreased 10/16/2024 8:00 AM EDT [facility] MPV 8.6 7.5 - 11.5 fL 10/16/2024 8:00 AM EDT [facility] Whole Blood 10/16/2024 6:31 AM EDT 10/16/2024 6:57 AM EDT Narrative [facility] - 10/16/2024 8:00 AM EDT Peripheral blood smear was scanned per review criteria approved by the laboratory esthetician and manager medical spa. us Eileen Schroeder MD, PhD LAB BLOOD ORDERABLES Final Result Performing Organization Address City/[facility]/ZIP Co de Phone Number [facility] [address] [place] [address], [facility] * CARISA Rhythm Strip - Scan (10/15/2024 8:02 PM EDT) us Scanning Uchhim SCAN DOCS - NO RESULTS Final Res ult * CARISA Rhythm Strip - Scan (10/15/2024 8:02 PM EDT) us Scanning Uchhim SCAN DOCS - NO RESULTS Final Res ult * Prepare Platelets, leukoreduced, 1 Units (10/15/2024 6:16 AM EDT) Product Code Z0313G05 [facility] Unit Number [id number] [facility] Dispense Status Presumed Transfused_PT HCLL Blood Expiration Date HCLL Coding System [id number] [facility] Blood Bank Product us Eleazar Nguyễn MD BLOOD BANK PRODUCT ORDE RABJOSE R Final Result Performing Organization Address City/[facility]/ZIP Co de Phone Number HCLL * Prepare Fresh Frozen Plasma, 1 Units (10/15/2024 6:15 AM EDT) Product Code [id number] [facility] Unit Number [id number] [facility] Dispense Status Presumed Transfused_PT HCLL Blood Expiration Date HCLL Coding System [id number] HCLL Blood Bank Product us Eleazar Nguyễn [...] MD, PhD LAB BLOOD ORDERABLES Final Result [facility] [address] * (ABNORMAL) Hepatic Function Panel (10/15/2024 6:08 AM EDT) Total Bilirubin 7.1(H) 0.0 - 1.5 mg/dL 10/15/2024 6:45 AM EDT [facility] Bilirubin, Direct 3.77(H) 0.00 - 0.40 mg/dL 10/15/2024 6:45 AM EDT [facility] AST 39 13 - 39 U/L 10/15/2024 6:45 AM EDT [facility] ALT 22 7 - 52 U/L 10/15/2024 6:45 AM EDT [facility] Alkaline Phosphatase 115 36 - 125 U/L 10/15/2024 6:45 AM EDT [facility] Total Protein 4.8(L) 6.4 - 8.9 g/dL 10/15/2024 6:45 AM EDT [facility] Albumin 3.2(L) 3.5 - 5.7 g/dL 10/15/2024 6:45 AM EDT [facility] Bilirubin, Indirect 3.33(H) 0.00 - 1.10 mg/dL 10/15/2024 6:45 AM EDT [facility] Plasma 10/15/2024 6:08 AM EDT 10/15/2024 6:17 AM EDT Eileen Schroeder MD, PhD LAB BLOOD ORDERABLES Final Result Performing Organization Address [facility] Co de Phone Number [facility] [address] * Magnesium (10/15/2024 6:08 AM EDT) Magnesium 1.8 1.5 - 2.5 mg/dL 10/15/2024 6:45 AM EDT [facility] Plasma 10/15/2024 6:08 AM EDT 10/15/2024 6:17 AM EDT Eileen Schroeder MD, PhD LAB BLOOD ORDERABLES Final Result Performing Organization Address [facility] de Phone Number [facility] [address] * (ABNORMAL) Renal Function Panel w/EGFR (10/15/2024 6:08 AM EDT) Sodium 135 133 - 146 mmol/L 10/15/2024 6:45 AM EDT [facility] Potassium 3.4(L) 3.5 - 5.3 mmol/L 10/15/2024 6:45 AM EDT [facility] Chloride 107 98 - 110 mmol/L 10/15/2024 6:45 AM EDT [facility] CO2 17(L) 21 - 33 mmol/L 10/15/2024 6:45 AM EDT [facility] Anion Gap 11 3 - 16 mmol/L 10/15/2024 6:45 AM EDT [facility] BUN 55(H) 7 - 25 mg/dL 10/15/2024 6:45 AM EDT [facility] Creatinine 2.88(H) 0.60 - 1.30 mg/dL 10/15/2024 6:45 AM EDT [facility] Glucose 125(H) 70 - 100 mg/dL 10/15/2024 6:45 AM EDT [facility] Calcium 8.4(L) 8.6 - 10.3 mg/dL 10/15/2024 6:45 AM EDT [facility] Phosphorus 3.9 2.1 - 4.7 mg/dL 10/15/2024 6:45 AM EDT [facility] Albumin 3.2(L) 3.5 - 5.7 g/dL 10/15/2024 6:45 AM EDT [facility] Osmolality, Calculated 297 278 - 305 mOsm/kg 10/15/2024 6:45 AM EDT [facility] EGFR 27 10/15/2024 6:45 AM EDT [facility] Comment:As of 2021, the [...] MD, PhD LAB BLOOD ORDERABLES Final Result [facility] [address] [place] [address], [facility] * (ABNORMAL) CBC (10/15/2024 6:08 AM EDT) WBC 4.6 3.8 - 10.8 10E3/uL 10/15/2024 6:51 AM EDT [facility] RBC 1.94(L) 4.20 - 5.80 10E6/uL 10/15/2024 6:51 AM EDT [facility] Hemoglobin 7.1(L) 13.2 - 17.1 g/dL 10/15/2024 6:51 AM EDT [facility] Hematocrit 19.6(L) 38.5 - 50.0 % 10/15/2024 6:51 AM EDT [facility] MCV 100.8(H) 80.0 - 100.0 fL 10/15/2024 6:51 AM EDT [facility] MCH 36.7(H) 27.0 - 33.0 pg 10/15/2024 6:51 AM EDT [facility] MCHC 36.4(H) 32.0 - 36.0 g/dL 10/15/2024 6:51 AM EDT [facility] RDW 17.3(H) 11.0 - 15.0 % 10/15/2024 6:51 AM EDT [facility] Platelets 34(L) 140 - 400 10E3/uL 10/15/2024 6:51 AM EDT [facility] Comment:Specimen checked for clots. None detected. MPV 8.7 7.5 - 11.5 fL 10/15/2024 6:51 AM EDT [facility] Whole Blood 10/15/2024 6:08 AM EDT 10/15/2024 6:17 AM EDT us Eileen Schroeder MD, PhD LAB BLOOD ORDERABLES Final Result [facility] [address] [place], [place] [address] * PRA-HLA Ab Screen (Cytotoxic) (10/15/2024 6:08 AM EDT) Pathologist [facility] The request and specimen(s) for this test have been received and transported to the [facility] at [address] [place] [address]. The [facility] will report results directly to the client. 10/15/2024 6:42 AM EDT [facility] Comment:The request and spec imen(s) for this test have been received and transported to the [facility] at [address] [place] [address]. The [facility] will report results directly to the client. Serum 10/15/2024 6:08 AM EDT 10/15/2024 6:42 AM EDT us Cosmo Pacheco MD LAB BLOOD ORDERABLES Final Resul t [facility] [address] [place] [address] * LEFT HEART CATH (10/14/2024 2:09 PM EDT) 10/14/2024 11:4 7 AM EDT Narrative [facility] - 10/14/2024 9:27 PM EDT *[facility]* Cardiac Licensing Analyst [address] [place] [address] CATHETERIZATION LAB STUDY Patient: Julien Gilbert Age: [...] manner. 3. Right radial artery access. A [id number] Glidesheath - Slender - .021 sheath was [...] + + !LV pressure s/d, ed !, dP/ro=0264kb Hg/s! + + + !Aortic pressure s/d (m)!106/58 (75) ! + + + ATTESTATION: Dr. Matta was present for the entire procedure. Dr. Jay Quan was the initial author of this report. Prepared and electronically signed by Irving Matta MD [id number] Procedure Note Irving Matta MD - 10/14/2024 *[facility]* Cardiac Licensing Analyst [address] [place] [id number] CATHETERIZATION LAB STUDY Patient: Julien Gilbert Age: [...] manner. 3. Right radial artery access. A [id number] Glidesheath - Slender - .021sheath was advanced [...] complications. Contrast: Omnipaque 350 25ml (total dose). [id number] 125ml (wasted). Radiation: Fluoroscopy time: 15min. Total [...] + + !LV pressure s/d, ed !, dP/df=4302mr Hg/s! + + + !Aortic pressure s/d (m)!106/58 (75) ! + + + ATTESTATION: Dr. Matta was present for the entire procedure. Dr. Jay Quan wasthe initial author of this report. Prepared and electronically signed by Irving Matta MD [id number] [place] [id number] Final Result Performing Organization Address [facility] de Phone Number [facility] * Transfuse Fresh Frozen Plasma Transfusion Rate: Per dept routine (10/14/2024 2:08 PM EDT) us Eleazar Nguyễn MD NURSING TREATMENT ORDER PAL - BLOOD ADMIN Final Result Performing Organization Address [facility] de Phone Number EXTERNAL * Transfuse Fresh Frozen Plasma Transfusion Rate: Per dept routine, 1 Units (10/14/2024 2:08 PM EDT) us Eleazar Nguyễn MD NURSING TREATMENT ORDER PAL - BLOOD ADMIN Final Result Performing Organization Address [facility] de Phone Number EXTERNAL * [...] Antibody Screen Negative 10/14/2024 9:11 AM EDT [facility] Blood 10/14/2024 8:21 AM EDT 10/14/2024 8:33 AM EDT Narrative [facility] - 10/14/2024 9:26 AM EDT Testing performed by [facility] Transfusion Service Eleazar Nguyễn MD BLOOD BANK TEST ORDERAB LES Final Result Performing Organization Address [facility] Co de Phone Number [facility] [address] [facility] * ABO/Rh (10/14/2024 8:21 AM EDT) ABO Grouping O 10/14/2024 8:55 AM EDT [facility] Rh Type Positive 10/14/2024 8:55 AM EDT [facility] Blood 10/14/2024 8:21 AM EDT 10/14/2024 8:33 AM EDT us Eleazar Nguyễn MD BLOOD BANK TEST ORDERAB LES Final Result Performing Organization Address [facility] Co de Phone Number [facility] [address] [facility] * (ABNORMAL) Protime-INR (10/14/2024 2:53 AM EDT) Protime 23.8(H) 12.1 - 15.1 seconds 10/14/2024 4:34 AM EDT [facility] INR 2.1(H) 0.9 - 1.1 10/14/2024 4:34 AM EDT [facility] Comment: RECOMMENDED THERAPEUTIC RANGES USING INR : Stable oral anticoagulant therapy: 2.0 - 3.0 Mechanical prosthetic heart valve: 2.5 - 3.5 Recurrent acute myocardial infarction: 2.5 - 3.5 Plasma 10/14/2024 2:53 AM EDT 10/14/2024 4:16 AM EDT Eileen Schroeder MD, PhD LAB BLOOD ORDERABLES Final Result [facility] [address] [place] [id number], [facility] * (ABNORMAL) Hepatic Function Panel (10/14/2024 2:53 AM EDT) Total Bilirubin 7.2(H) 0.0 - 1.5 mg/dL 10/14/2024 4:45 AM EDT [facility] Bilirubin, Direct 3.86(H) 0.00 - 0.40 mg/dL 10/14/2024 4:45 AM EDT [facility] AST 41(H) 13 - 39 U/L 10/14/2024 4:45 AM EDT [facility] ALT 22 7 - 52 U/L 10/14/2024 4:45 AM EDT [facility] Alkaline Phosphatase 119 36 - 125 U/L 10/14/2024 4:45 AM EDT [facility] Total Protein 4.6(L) 6.4 - 8.9 g/dL 10/14/2024 4:45 AM EDT [facility] Albumin 3.3(L) 3.5 - 5.7 g/dL 10/14/2024 4:45 AM EDT [facility] Bilirubin, Indirect 3.34(H) 0.00 - 1.10 mg/dL 10/14/2024 4:45 AM EDT [facility] Plasma 10/14/2024 2:53 AM EDT 10/14/2024 4:16 AM EDT Eileen Schroeder MD, PhD LAB BLOOD ORDERABLES Final Result [facility] [address] [facility]. [address] * Magnesium (10/14/2024 2:53 AM EDT) Magnesium 1.9 1.5 - 2.5 mg/dL 10/14/2024 4:45 AM EDT [facility] Plasma 10/14/2024 2:53 AM EDT 10/14/2024 4:16 AM EDT us Eileen Schroeder MD, PhD LAB BLOOD ORDERABLES Final Result Performing Organization Address City/[facility]/ZIP Co de Phone Number [facility] [address] [facility]. [address] * (ABNORMAL) Renal Function Panel w/EGFR (10/14/2024 2:53 AM EDT) Sodium 136 133 - 146 mmol/L 10/14/2024 4:45 AM EDT [facility] Potassium 3.5 3.5 - 5.3 mmol/L 10/14/2024 4:45 AM EDT [facility] Chloride 107 98 - 110 mmol/L 10/14/2024 4:45 AM EDT [facility] CO2 16(L) 21 - 33 mmol/L 10/14/2024 4:45 AM EDT [facility] Anion Gap 13 3 - 16 mmol/L 10/14/2024 4:45 AM EDT [facility] BUN 55(H) 7 - 25 mg/dL 10/14/2024 4:45 AM EDT [facility] Creatinine 3.01(H) 0.60 - 1.30 mg/dL 10/14/2024 4:45 AM EDT [facility] Glucose 95 70 - 100 mg/dL 10/14/2024 4:45 AM EDT [facility] Calcium 8.5(L) 8.6 - 10.3 mg/dL 10/14/2024 4:45 AM EDT [facility] Phosphorus 4.4 2.1 - 4.7 mg/dL 10/14/2024 4:45 AM EDT [facility] Albumin 3.3(L) 3.5 - 5.7 g/dL 10/14/2024 4:45 AM EDT [facility] Osmolality, Calculated 297 278 - 305 mOsm/kg 10/14/2024 4:45 AM EDT [facility] EGFR 26 10/14/2024 4:45 AM EDT [facility] Comment:As of 2021, the [...] MD, PhD LAB BLOOD ORDERABLES Final Result [facility] [address] [id number], [facility] * (ABNORMAL) CBC (10/14/2024 2:53 AM EDT) WBC 5.5 3.8 - 10.8 10E3/uL 10/14/2024 5:00 AM EDT [facility] RBC 2.09(L) 4.20 - 5.80 10E6/uL 10/14/2024 5:00 AM EDT [facility] Hemoglobin 7.6(L) 13.2 - 17.1 g/dL 10/14/2024 5:00 AM EDT [facility] Hematocrit 21.3(L) 38.5 - 50.0 % 10/14/2024 5:00 AM EDT [facility] MCV 101.7(H) 80.0 - 100.0 fL 10/14/2024 5:00 AM EDT [facility] MCH 36.3(H) 27.0 - 33.0 pg 10/14/2024 5:00 AM EDT [facility] MCHC 35.7 32.0 - 36.0 g/dL 10/14/2024 5:00 AM EDT [facility] RDW 17.6(H) 11.0 - 15.0 % 10/14/2024 5:00 AM EDT [facility] Platelets 35(L) 140 - 400 10E3/uL 10/14/2024 5:00 AM EDT [facility] Comment: Specimen checked for clots. None detected. Slide Reviewed for PLT Clumps. None Seen. MPV 8.5 7.5 - 11.5 fL 10/14/2024 5:00 AM EDT [facility] Whole Blood 10/14/2024 2:53 AM EDT 10/14/2024 4:17 AM EDT us Eileen Schroeder MD, PhD LAB BLOOD ORDERABLES Final Result [facility] [address] [id number], [facility] * Cardiac Cath Documents Scan [...] mL of GADOBUTROL 1 MMOL/ML INTRAVENOUS SYRINGE ([facility]) administered intravenously COMPARISON: CT 09/03/2024. Ultrasound [...] mL of GADOBUTROL 1 MMOL/ML INTRAVENOUS SYRINGE ([facility])administered intravenously COMPARISON: CT 09/03/2024. Ultrasound 10/07/2024. [...] * (ABNORMAL) Protime-INR (10/13/2024 5:35 AM EDT) [facility] Protime 24.4(H) 12.1 - 15.1 seconds 10/13/2024 6:12 AM EDT [facility] INR 2.1(H) 0.9 - 1.1 10/13/2024 6:12 AM EDT [facility] Comment: RECOMMENDED THERAPEUTIC RANGES USING INR : Stable oral anticoagulant therapy: 2.0 - 3.0 Mechanical prosthetic heart valve: 2.5 - 3.5 Recurrent acute myocardial infarction: 2.5 - 3.5 Plasma 10/13/2024 5:35 AM EDT 10/13/2024 5:52 AM EDT Eileen Schroeder MD, PhD LAB BLOOD ORDERABLES Final Result [facility] [address] * (ABNORMAL) Hepatic Function Panel (10/13/2024 5:35 AM EDT) [facility] Total Bilirubin 6.5(H) 0.0 - 1.5 mg/dL 10/13/2024 6:30 AM EDT [facility] Bilirubin, Direct 3.53(H) 0.00 - 0.40 mg/dL 10/13/2024 6:30 AM EDT [facility] AST 42(H) 13 - 39 U/L 10/13/2024 6:30 AM EDT [facility] ALT 19 7 - 52 U/L 10/13/2024 6:30 AM EDT [facility] Alkaline Phosphatase 108 36 - 125 U/L 10/13/2024 6:30 AM EDT [facility] Total Protein 4.4(L) 6.4 - 8.9 g/dL 10/13/2024 6:30 AM EDT [facility] Albumin 3.1(L) 3.5 - 5.7 g/dL 10/13/2024 6:30 AM EDT [facility] Bilirubin, Indirect 2.97(H) 0.00 - 1.10 mg/dL 10/13/2024 6:30 AM EDT [facility] Plasma 10/13/2024 5:35 AM EDT 10/13/2024 5:52 AM EDT Eileen Schroeder MD, PhD LAB BLOOD ORDERABLES Final Result Performing Organization Address City/[facility]/ZIP Co de Phone Number [facility] [address] [place] [address] * Magnesium (10/13/2024 5:35 AM EDT) Magnesium 2.0 1.5 - 2.5 mg/dL 10/13/2024 6:30 AM EDT [facility] Plasma 10/13/2024 5:35 AM EDT 10/13/2024 5:52 AM EDT us Eileen Schroeder MD, PhD LAB BLOOD ORDERABLES Final Result Performing Organization Address [facility] Co de Phone Number [facility] [address] [place] [address] * (ABNORMAL) Renal Function Panel w/EGFR (10/13/2024 5:35 AM EDT) Sodium 134 133 - 146 mmol/L 10/13/2024 6:30 AM EDT [facility] Potassium 3.7 3.5 - 5.3 mmol/L 10/13/2024 6:30 AM EDT [facility] Chloride 109 98 - 110 mmol/L 10/13/2024 6:30 AM EDT [facility] CO2 14(L) 21 - 33 mmol/L 10/13/2024 6:30 AM EDT [facility] Anion Gap 11 3 - 16 mmol/L 10/13/2024 6:30 AM EDT [facility] BUN 54(H) 7 - 25 mg/dL 10/13/2024 6:30 AM EDT [facility] Creatinine 2.99(H) 0.60 - 1.30 mg/dL 10/13/2024 6:30 AM EDT [facility] Glucose 116(H) 70 - 100 mg/dL 10/13/2024 6:30 AM EDT [facility] Calcium 8.3(L) 8.6 - 10.3 mg/dL 10/13/2024 6:30 AM EDT [facility] Phosphorus 4.5 2.1 - 4.7 mg/dL 10/13/2024 6:30 AM EDT [facility] Albumin 3.1(L) 3.5 - 5.7 g/dL 10/13/2024 6:30 AM EDT [facility] Osmolality, Calculated 294 278 - 305 mOsm/kg 10/13/2024 6:30 AM EDT [facility] EGFR 26 10/13/2024 6:30 AM EDT [facility] Comment:As of 2021, the [...] MD, PhD LAB BLOOD ORDERABLES Final Result [facility] [address] [facility] [place] [address], [facility] * (ABNORMAL) CBC (10/13/2024 5:35 AM EDT) WBC 4.7 3.8 - 10.8 10E3/uL 10/13/2024 6:22 AM EDT [facility] RBC 2.06(L) 4.20 - 5.80 10E6/uL 10/13/2024 6:22 AM EDT [facility] Hemoglobin 7.4(L) 13.2 - 17.1 g/dL 10/13/2024 6:22 AM EDT [facility] Hematocrit 21.7(L) 38.5 - 50.0 % 10/13/2024 6:22 AM EDT [facility] MCV 105.4(H) 80.0 - 100.0 fL 10/13/2024 6:22 AM EDT [facility] MCH 35.9(H) 27.0 - 33.0 pg 10/13/2024 6:22 AM EDT [facility] MCHC 34.0 32.0 - 36.0 g/dL 10/13/2024 6:22 AM EDT [facility] RDW 18.5(H) 11.0 - 15.0 % 10/13/2024 6:22 AM EDT [facility] Platelets 35(L) 140 - 400 10E3/uL 10/13/2024 6:22 AM EDT [facility] Comment: CNV Specimen checked for clots. None detected. MPV 8.4 7.5 - 11.5 fL 10/13/2024 6:22 AM EDT [facility] Whole Blood 10/13/2024 5:35 AM EDT 10/13/2024 5:53 AM EDT us Eileen Schroeder MD, PhD LAB BLOOD ORDERABLES Final Result [facility] [address] * (ABNORMAL) Ammonia (10/13/2024 5:35 AM EDT) Ammonia 203(HH) 27 - 90 ug/dL 10/13/2024 7:16 AM EDT [facility] Comment: HEMOLYSIS EVIDENT. RESULTS MAY BE INFLUENCED. Critical Result [id number] Called to and read back by: KEY MELO RN at: 10/13/2024 07:15:55 by:CASESE Plasma 10/13/2024 5:35 AM EDT 10/13/2024 6:19 AM EDT Ellis Mays DO LAB BLOOD ORDERABLES Final Resul t Performing Organization Address [facility] Co de Phone Number [facility] [address] [facility] * CARISA Rhythm Strip - Scan (10/12/2024 10:30 PM EDT) us Scanning [employer] SCAN DOCS - NO RESULTS Final Res ult * (ABNORMAL) Protime-INR (10/12/2024 5:44 AM EDT) Protime 25.7(H) 12.1 - 15.1 seconds 10/12/2024 6:12 AM EDT [facility] INR 2.3(H) 0.9 - 1.1 10/12/2024 6:12 AM EDT [facility] Comment: RECOMMENDED THERAPEUTIC RANGES USING INR : Stable oral anticoagulant therapy: 2.0 - 3.0 Mechanical prosthetic heart valve: 2.5 - 3.5 Recurrent acute myocardial infarction: 2.5 - 3.5 Plasma 10/12/2024 5:44 AM EDT 10/12/2024 5:58 AM EDT Eileen Schroeder MD, PhD LAB BLOOD ORDERABLES Final Result Performing Organization Address [facility] Co de Phone Number [facility] [address] [facility]. [address] * (ABNORMAL) Hepatic Function Panel (10/12/2024 5:44 AM EDT) Total Bilirubin 6.5(H) 0.0 - 1.5 mg/dL 10/12/2024 6:29 AM EDT [facility] Bilirubin, Direct 3.64(H) 0.00 - 0.40 mg/dL 10/12/2024 6:29 AM EDT [facility] AST 40(H) 13 - 39 U/L 10/12/2024 6:29 AM EDT [facility] ALT 19 7 - 52 U/L 10/12/2024 6:29 AM EDT [facility] Alkaline Phosphatase 99 36 - 125 U/L 10/12/2024 6:29 AM EDT [facility] Total Protein 4.2(L) 6.4 - 8.9 g/dL 10/12/2024 6:29 AM EDT [facility] Albumin 3.1(L) 3.5 - 5.7 g/dL 10/12/2024 6:29 AM EDT [facility] Bilirubin, Indirect 2.86(H) 0.00 - 1.10 mg/dL 10/12/2024 6:29 AM EDT [facility] Plasma 10/12/2024 5:44 AM EDT 10/12/2024 5:58 AM EDT Eileen Schroeder MD, PhD LAB BLOOD ORDERABLES Final Result Performing Organization Address City/[facility]/ZIP Co de Phone Number [facility] [address] * Magnesium (10/12/2024 5:44 AM EDT) Magnesium 1.9 1.5 - 2.5 mg/dL 10/12/2024 6:29 AM EDT [facility] Plasma 10/12/2024 5:44 AM EDT 10/12/2024 5:58 AM EDT Eileen Schroeder MD, PhD LAB BLOOD ORDERABLES Final Result [facility] [address] * (ABNORMAL) Renal Function Panel w/EGFR (10/12/2024 5:44 AM EDT) Sodium 135 133 - 146 mmol/L 10/12/2024 6:29 AM EDT [facility] Potassium 3.7 3.5 - 5.3 mmol/L 10/12/2024 6:29 AM EDT [facility] Chloride 109 98 - 110 mmol/L 10/12/2024 6:29 AM EDT [facility] CO2 17(L) 21 - 33 mmol/L 10/12/2024 6:29 AM EDT [facility] Anion Gap 9 3 - 16 mmol/L 10/12/2024 6:29 AM EDT [facility] BUN 52(H) 7 - 25 mg/dL 10/12/2024 6:29 AM EDT [facility] Creatinine 2.94(H) 0.60 - 1.30 mg/dL 10/12/2024 6:29 AM EDT [facility] Glucose 121(H) 70 - 100 mg/dL 10/12/2024 6:29 AM EDT [facility] Calcium 8.5(L) 8.6 - 10.3 mg/dL 10/12/2024 6:29 AM EDT [facility] Phosphorus 4.6 2.1 - 4.7 mg/dL 10/12/2024 6:29 AM EDT [facility] Albumin 3.1(L) 3.5 - 5.7 g/dL 10/12/2024 6:29 AM EDT [facility] Osmolality, Calculated 295 278 - 305 mOsm/kg 10/12/2024 6:29 AM EDT [facility] EGFR 27 10/12/2024 6:29 AM EDT [facility] Comment:As of 2021, the [...] LAB BLOOD ORDERABLES Final Result [facility] [address] [place] [address], [facility] * (ABNORMAL) CBC (10/12/2024 5:44 AM EDT) WBC 3.3(L) 3.8 - 10.8 10E3/uL 10/12/2024 7:06 AM EDT [facility] RBC 1.95(L) 4.20 - 5.80 10E6/uL 10/12/2024 7:06 AM EDT [facility] Hemoglobin 7.2(L) 13.2 - 17.1 g/dL 10/12/2024 7:06 AM EDT [facility] Hematocrit 19.7(L) 38.5 - 50.0 % 10/12/2024 7:06 AM EDT [facility] MCV 101.2(H) 80.0 - 100.0 fL 10/12/2024 7:06 AM EDT [facility] MCH 37.0(H) 27.0 - 33.0 pg 10/12/2024 7:06 AM EDT [facility] MCHC 36.5(H) 32.0 - 36.0 g/dL 10/12/2024 7:06 AM EDT [facility] RDW 17.6(H) 11.0 - 15.0 % 10/12/2024 7:06 AM EDT [facility] Platelets 30(L) 140 - 400 10E3/uL 10/12/2024 7:06 AM EDT [facility] Comment: Specimen checked for clots. None detected. Slide Reviewed for PLT Clumps. None Seen. Platelet Estimate Decreased 10/12/2024 7:06 AM EDT [facility] MPV 8.3 7.5 - 11.5 fL 10/12/2024 7:06 AM EDT [facility] Whole Blood 10/12/2024 5:44 AM EDT 10/12/2024 5:58 AM EDT Narrative [facility] - 10/12/2024 7:06 AM EDT Peripheral blood smear was scanned per review criteria approved by the laboratory esthetician and manager medical spa. Eileen Schroeder MD, PhD LAB BLOOD ORDERABLES Final Result Performing Organization Address [facility] Co de Phone Number [facility] [address] * CARISA Rhythm Strip - Scan (10/11/2024 10:04 PM EDT) us Scanning Uchhim SCAN DOCS - NO RESULTS Final Res ult * (ABNORMAL) Protime-INR (10/11/2024 3:02 AM EDT) Protime 26.8(H) 12.1 - 15.1 seconds 10/11/2024 3:30 AM EDT [facility] INR 2.4(H) 0.9 - 1.1 10/11/2024 3:30 AM EDT [facility] Comment: RECOMMENDED THERAPEUTIC RANGES USING INR : Stable oral anticoagulant therapy: 2.0 - 3.0 Mechanical prosthetic heart valve: 2.5 - 3.5 Recurrent acute myocardial infarction: 2.5 - 3.5 Plasma 10/11/2024 3:02 AM EDT 10/11/2024 3:08 AM EDT Result [facility] Eileen Schroeder MD, PhD LAB BLOOD ORDERABLES Final Result Performing Organization Address [facility] Co de Phone Number [facility] [address] [facility]. [address] * (ABNORMAL) Hepatic Function Panel (10/11/2024 3:02 AM EDT) Total Bilirubin 7.3(H) 0.0 - 1.5 mg/dL 10/11/2024 3:38 AM EDT [facility] Bilirubin, Direct 3.85(H) 0.00 - 0.40 mg/dL 10/11/2024 3:38 AM EDT [facility] AST 39 13 - 39 U/L 10/11/2024 3:38 AM EDT [facility] ALT 20 7 - 52 U/L 10/11/2024 3:38 AM EDT [facility] Alkaline Phosphatase 88 36 - 125 U/L 10/11/2024 3:38 AM EDT [facility] Total Protein 4.5(L) 6.4 - 8.9 g/dL 10/11/2024 3:38 AM EDT [facility] Albumin 3.3(L) 3.5 - 5.7 g/dL 10/11/2024 3:38 AM EDT [facility] Bilirubin, Indirect 3.45(H) 0.00 - 1.10 mg/dL 10/11/2024 3:38 AM EDT [facility] Plasma 10/11/2024 3:02 AM EDT 10/11/2024 3:08 AM EDT Eileen Schroeder MD, PhD LAB BLOOD ORDERABLES Final Result Performing Organization Address [facility] Co de Phone Number [facility] [address] * Magnesium (10/11/2024 3:02 AM EDT) Magnesium 2.0 1.5 - 2.5 mg/dL 10/11/2024 3:38 AM EDT [facility] Plasma 10/11/2024 3:02 AM EDT 10/11/2024 3:08 AM EDT Eileen Schroeder MD, PhD LAB BLOOD ORDERABLES Final Result Performing Organization Address [facility]/ZIP Co de Phone Number [facility] [address] * (ABNORMAL) Renal Function Panel w/EGFR (10/11/2024 3:02 AM EDT) Sodium 134 133 - 146 mmol/L 10/11/2024 3:38 AM EDT [facility] Potassium 3.6 3.5 - 5.3 mmol/L 10/11/2024 3:38 AM EDT [facility] Chloride 108 98 - 110 mmol/L 10/11/2024 3:38 AM EDT [facility] CO2 16(L) 21 - 33 mmol/L 10/11/2024 3:38 AM EDT [facility] Anion Gap 10 3 - 16 mmol/L 10/11/2024 3:38 AM EDT [facility] BUN 49(H) 7 - 25 mg/dL 10/11/2024 3:38 AM EDT [facility] Creatinine 2.77(H) 0.60 - 1.30 mg/dL 10/11/2024 3:38 AM EDT [facility] Glucose 112(H) 70 - 100 mg/dL 10/11/2024 3:38 AM EDT [facility] Calcium 8.9 8.6 - 10.3 mg/dL 10/11/2024 3:38 AM EDT [facility] Phosphorus 3.5 2.1 - 4.7 mg/dL 10/11/2024 3:38 AM EDT [facility] Albumin 3.3(L) 3.5 - 5.7 g/dL 10/11/2024 3:38 AM EDT [facility] Osmolality, Calculated 292 278 - 305 mOsm/kg 10/11/2024 3:38 AM EDT [facility] EGFR 29 10/11/2024 3:38 AM EDT [facility] Comment:As of 2021, the [...] MD, PhD LAB BLOOD ORDERABLES Final Result [facility] [address] [place] [address], [facility] * (ABNORMAL) CBC (10/11/2024 3:02 AM EDT) WBC 4.0 3.8 - 10.8 10E3/uL 10/11/2024 3:55 AM EDT [facility] RBC 2.11(L) 4.20 - 5.80 10E6/uL 10/11/2024 3:55 AM EDT [facility] Hemoglobin 7.7(L) 13.2 - 17.1 g/dL 10/11/2024 3:55 AM EDT [facility] Hematocrit 21.2(L) 38.5 - 50.0 % 10/11/2024 3:55 AM EDT [facility] MCV 100.5(H) 80.0 - 100.0 fL 10/11/2024 3:55 AM EDT [facility] MCH 36.4(H) 27.0 - 33.0 pg 10/11/2024 3:55 AM EDT [facility] MCHC 36.2(H) 32.0 - 36.0 g/dL 10/11/2024 3:55 AM EDT [facility] RDW 17.9(H) 11.0 - 15.0 % 10/11/2024 3:55 AM EDT [facility] Platelets 32(L) 140 - 400 10E3/uL 10/11/2024 3:55 AM EDT [facility] Comment: Specimen checked for clots. None detected. Slide Reviewed for PLT Clumps. None Seen. Platelet Estimate Decreased 10/11/2024 3:55 AM EDT [facility] MPV 8.1 7.5 - 11.5 fL 10/11/2024 3:55 AM EDT [facility] Whole Blood 10/11/2024 3:02 AM EDT 10/11/2024 3:08 AM EDT Narrative [facility] - 10/11/2024 3:55 AM EDT Peripheral blood smear was scanned per review criteria approved by the laboratory esthetician and manager medical spa. us Eileen Schroeder MD, PhD LAB BLOOD ORDERABLES Final Result [facility] [address] [facility] * Vancomycin, random (10/11/2024 3:02 AM EDT) Vancomycin Random 13.4 ug/mL 10/11/2024 3:37 AM EDT [facility] Comment:Reference range not established for this test. Plasma 10/11/2024 3:02 AM EDT 10/11/2024 3:08 AM EDT us Jodi Ortiz PharmD LAB BLOOD ORDERABLES Final Result Performing Organization Address [facility] Co de Phone Number [facility] [address] [facility] * IR Paracentesis incl imaging guide [...] diagnostic and therapeutic paracentesis. Bakari Wahl CNP, Court Deputy Procedure and Findings: The procedure was performed [...] Using ultrasound guidance, a 10 cm, 5-F [employer] Centesis catheter was placed into the right [...] for diagnostic andtherapeutic paracentesis. Bakari Wahl CNP, Court Deputy Procedure and Findings: The procedure was performed [...] Clarity, Fluid Clear 10/10/2024 5:29 PM EDT [facility] Neutrophil %, Fluid 9 % 10/10/2024 5:29 PM EDT [facility] Lymphocytes %, Fluid 13 % 10/10/2024 5:29 PM EDT [facility] Mesothelial %, Fluid 6 % 10/10/2024 5:29 PM EDT [facility] Macrophage %, Fluid 72 % 10/10/2024 5:29 PM EDT [facility] RBC, Fluid 2,662 /uL 10/10/2024 4:41 PM EDT [facility] Total Nucleated Cells, Fluid 89 /uL 10/10/2024 4:41 PM EDT [facility] Comment:Total Nucleated Cell s represent WBCs and other nucleated cells in the fluid such as lining cells. Ascitic Fluid ABDOMEN / Unknown 1:51 PM EDT 10/10/2024 3:56 PM EDT us Gerri Peterson MD BODY FLUIDS AND STOOLS ORDERABL ES Final Result Performing Organization Address [facility] Co de Phone Number [facility] [address] [facility] * Body Fluid Culture plus Stain (10/10/2024 1:51 PM EDT) Gram Stain Result Cytospin Results: [facility] Gram Stain Result Polymorphonuclear Leukocytes Seen; [facility] Gram Stain Result No Organisms Seen; [facility] Culture Result No Growth After 5 Days [facility] Fluid ABDOMEN / Unknown 10/10/2024 1:51 PM EDT 10/10/2024 3:56 PM EDT Gerri Peterson MD MICROBIOLOGY - GENERAL ORDERABL ES Final Result Performing Organization Address [facility] de Phone Number [facility] [address] [facility]. [address] * UPPER GI ENDOSCOPY (10/10/2024 11:48 AM EDT) 10/10/2024 11:4 8 AM EDT Narrative [facility] - 10/10/2024 12:34 PM EDT [id number] Procedure Date: 10/10/2024 11:48 AM Patient Name: Julien Gilbert Date of : 1985 Admit Type: Inpatient Age: 39 Gender: Male Note Status: Finalized Attending MD: Lino Soto MD, [id number] Procedure: Upper GI endoscopy Indications: Gastroesopahgeal variceal [...] verified by the physician, the nurse, the kapok machine operator and the platform power technician in the pre-procedure area in the [...] to hypotension Procedure Code(s): --- Professional --- 61936, GC, Esophagogastroduodenoscopy, flexible, transoral; diagnostic, including collection of specimen(s) by brushing or washing, when performed (separate procedure) Diagnosis Code(s): --- Professional --- I85.00, Esophageal varices without bleeding K76.6, Portal hypertension K31.89, Other diseases of stomach and duodenum CPT copyright 2022 [employer]. All rights reserved. The codes documented in this report are preliminary and upon inpatient coder review may be revised to meet [...] In: 12:10:16 PM Scope Out: 12:17:[address] [place] [address], [address] us Provider Not In System PROCEDURE/MINOR SURGICAL [...] MD, PhD LAB BLOOD ORDERABLES Final Result [facility] [address] [place] [address], [facility] * (ABNORMAL) Hepatic Function Panel (10/10/2024 5:23 AM EDT) Total Bilirubin 8.6(H) 0.0 - 1.5 mg/dL 10/10/2024 6:21 AM EDT [facility] Bilirubin, Direct 4.65(H) 0.00 - 0.40 mg/dL 10/10/2024 6:21 AM EDT [facility] AST 40(H) 13 - 39 U/L 10/10/2024 6:21 AM EDT [facility] ALT 22 7 - 52 U/L 10/10/2024 6:21 AM EDT [facility] Alkaline Phosphatase 118 36 - 125 U/L 10/10/2024 6:21 AM EDT [facility] Total Protein 4.6(L) 6.4 - 8.9 g/dL 10/10/2024 6:21 AM EDT [facility] Albumin 3.3(L) 3.5 - 5.7 g/dL 10/10/2024 6:21 AM EDT [facility] Bilirubin, Indirect 3.95(H) 0.00 - 1.10 mg/dL 10/10/2024 6:21 AM EDT [facility] Plasma 10/10/2024 5:23 AM EDT 10/10/2024 5:50 AM EDT us Eileen Schroeder MD, PhD LAB BLOOD ORDERABLES Final Result [facility] [address] * Magnesium (10/10/2024 5:23 AM EDT) Magnesium 1.9 1.5 - 2.5 mg/dL 10/10/2024 6:21 AM EDT [facility] Plasma 10/10/2024 5:23 AM EDT 10/10/2024 5:50 AM EDT us Eileen Schroeder MD, PhD LAB BLOOD ORDERABLES Final Result Performing Organization Address [facility] Co de Phone Number [facility] [address] * (ABNORMAL) Renal Function Panel w/EGFR (10/10/2024 5:23 AM EDT) Sodium 135 133 - 146 mmol/L 10/10/2024 6:21 AM EDT [facility] Potassium 3.6 3.5 - 5.3 mmol/L 10/10/2024 6:21 AM EDT [facility] Chloride 108 98 - 110 mmol/L 10/10/2024 6:21 AM EDT [facility] CO2 17(L) 21 - 33 mmol/L 10/10/2024 6:21 AM EDT [facility] Anion Gap 10 3 - 16 mmol/L 10/10/2024 6:21 AM EDT [facility] BUN 53(H) 7 - 25 mg/dL 10/10/2024 6:21 AM EDT [facility] Creatinine 2.85(H) 0.60 - 1.30 mg/dL 10/10/2024 6:21 AM EDT [facility] Glucose 113(H) 70 - 100 mg/dL 10/10/2024 6:21 AM EDT [facility] Calcium 9.0 8.6 - 10.3 mg/dL 10/10/2024 6:21 AM EDT [facility] Phosphorus 3.3 2.1 - 4.7 mg/dL 10/10/2024 6:21 AM EDT [facility] Albumin 3.3(L) 3.5 - 5.7 g/dL 10/10/2024 6:21 AM EDT [facility] Osmolality, Calculated 295 278 - 305 mOsm/kg 10/10/2024 6:21 AM EDT [facility] EGFR 28 10/10/2024 6:21 AM EDT [facility] Comment:As of 2021, the [...] BLOOD ORDERABLES Final Result Performing Organization Address City/State/[facility] Co de Phone Number [facility] [address] * (ABNORMAL) CBC (10/10/2024 5:23 AM EDT) WBC 5.1 3.8 - 10.8 10E3/uL 10/10/2024 6:14 AM EDT [facility] RBC 2.04(L) 4.20 - 5.80 10E6/uL 10/10/2024 6:14 AM EDT [facility] Hemoglobin 7.3(L) 13.2 - 17.1 g/dL 10/10/2024 6:14 AM EDT [facility] Hematocrit 20.6(L) 38.5 - 50.0 % 10/10/2024 6:14 AM EDT [facility] MCV 101.2(H) 80.0 - 100.0 fL 10/10/2024 6:14 AM EDT [facility] MCH 36.0(H) 27.0 - 33.0 pg 10/10/2024 6:14 AM EDT [facility] MCHC 35.5 32.0 - 36.0 g/dL 10/10/2024 6:14 AM EDT [facility] RDW 17.6(H) 11.0 - 15.0 % 10/10/2024 6:14 AM EDT [facility] Platelets 39(L) 140 - 400 10E3/uL 10/10/2024 6:14 AM EDT [facility] Comment: CNV Specimen checked for clots. None detected. MPV 9.8 7.5 - 11.5 fL 10/10/2024 6:14 AM EDT [facility] Whole Blood 10/10/2024 5:23 AM EDT 10/10/2024 5:51 AM EDT us Eileen Schroeder MD, PhD LAB BLOOD ORDERABLES Final Result Performing Organization Address City/[facility]/ZIP Co de Phone Number [facility] [address] * Vancomycin, random (10/10/2024 5:23 AM EDT) Vancomycin Random 16.4 ug/mL 10/10/2024 6:22 AM EDT [facility] Comment:Reference range not established for this test. Plasma 10/10/2024 5:23 AM EDT 10/10/2024 5:51 AM EDT us Jodi Ortiz PharmD LAB BLOOD ORDERABLES Final Result Performing Organization Address [facility]/ZIP Co de Phone Number [facility] [address] * ECHO STRESS W/ CONTRAST (10/09/2024 4:37 PM EDT) Anatomical Region Laterality Modality Chest Ultrasound 10/09/2024 2:40 PM EDT Narrative 10/09/2024 6:45 PM EDT * [facility]* [address] [place] [address] Stress Echocardiogram Patient: Julien Gilbert Room: 8142 Height: 76in MR Number: [id number] : 1985 Weight: 262lb Account: [id number] Gender: M BP: 125 / 77 Study Date: 10/09/2024 Age: 39 BSA: 2.48m^2 Referring physician: Gerri Peterson Interpreting physician: Tonya Henriquez MD FELLOW Lisa Jha MD PERFORMING Tonya Henriquez MD PROPERTY FIELD INSPECTOR [employer] ORDERING Gerri Peterson REFERRING [...] was augmented by the addition of hand flea market seller and leg lifts. The infusion was terminated [...] at baseline or with provocation, shows no wbdyr-bm-ceic atrial level shunt. - Pulmonary arteries: Systolic [...] at baseline or with provocation, shows no robpz-gs-ovue atrial level shunt. Pulmonary artery: - Systolic [...] at baseline or with provocation, shows no vfgxm-oo-mten atrial level shunt. Pericardium: - There is [...] peak heart rate and blood pressure was [id number] Hg/min. Stress testing did not produce any [...] Reviewed and confirmed by Tonya Henriquez MD [id number] Procedure Note Tonya Henriquez MD - 10/09/2024 * [facility]* [address] [place] [address] Stress Echocardiogram Patient: Julien Gilbert Room: 8142 Height: 76in MR Number: [id number] : 1985 Weight: 262lb Account: [id number] Gender: M BP: 125 / 77 Study Date: 10/09/2024 Age: 39 BSA: 2.48m^2 Referring physician: Gerri Peterson Interpreting physician: Tonya Henriquez MD FELLOW Lisa Jha MD PERFORMING Tonya Henriquez MD PROPERTY FIELD INSPECTOR [employer] ORDERING Gerri Peterson REFERRING [...] Procedure: [facility]. Intravenous [...] was augmented by the addition of hand flea market seller and leg lifts. The infusion was terminated [...] at baseline or with provocation, shows no heewm-pq-ccoe atrial level shunt. - Pulmonary arteries: Systolic [...] study at baseline or with provocation, showsno xoiwu-qy-ehpc atrial level shunt. Pulmonary artery: - Systolic [...] at baseline or with provocation, shows no vbvhh-ym-nfls atrial level shunt. Pericardium: - There is [...] heart rate). The maximal predicted heart rate [id number]. The target heart rate was 152bpm. The target heart rate was achieved.The heart rate response to stress is normal. There is a normal resting blood pressure with an appropriate response to stress. The rate-pressureproduct for the peak heart rate and blood pressure was 02379gl Hg/min. Stress testing did not produce any [...] Reviewed and confirmed by Tonya Henriquez MD [id number] us Gerri Peterson MD CV ECHO ORDERABLES Final Result * (ABNORMAL) Renal Function Panel w/EGFR, STAT (10/09/2024 1:05 PM EDT) Sodium 134 133 - 146 mmol/L 10/09/2024 2:10 PM EDT [facility] Potassium 3.7 3.5 - 5.3 mmol/L 10/09/2024 2:10 PM EDT [facility] Chloride 105 98 - 110 mmol/L 10/09/2024 2:10 PM EDT [facility] CO2 17(L) 21 - 33 mmol/L 10/09/2024 2:10 PM EDT [facility] Anion Gap 12 3 - 16 mmol/L 10/09/2024 2:10 PM EDT [facility] BUN 53(H) 7 - 25 mg/dL 10/09/2024 2:10 PM EDT [facility] Creatinine 2.89(H) 0.60 - 1.30 mg/dL 10/09/2024 2:10 PM EDT [facility] Glucose 108(H) 70 - 100 mg/dL 10/09/2024 2:10 PM EDT [facility] Calcium 9.3 8.6 - 10.3 mg/dL 10/09/2024 2:10 PM EDT [facility] Phosphorus 3.4 2.1 - 4.7 mg/dL 10/09/2024 2:10 PM EDT [facility] Albumin 3.6 3.5 - 5.7 g/dL 10/09/2024 2:10 PM EDT [facility] Osmolality, Calculated 293 278 - 305 mOsm/kg 10/09/2024 2:10 PM EDT [facility] EGFR 27 10/09/2024 2:10 PM EDT [facility] Comment:As of 2021, the [...] MD, PhD LAB BLOOD ORDERABLES Final Result [facility] [address] * (ABNORMAL) Renal Function Panel w/EGFR, STAT (10/09/2024 8:14 AM EDT) Sodium 134 133 - 146 mmol/L 10/09/2024 8:47 AM EDT [facility] Potassium 3.4(L) 3.5 - 5.3 mmol/L 10/09/2024 8:47 AM EDT [facility] Chloride 107 98 - 110 mmol/L 10/09/2024 8:47 AM EDT [facility] CO2 17(L) 21 - 33 mmol/L 10/09/2024 8:47 AM EDT [facility] Anion Gap 10 3 - 16 mmol/L 10/09/2024 8:47 AM EDT [facility] BUN 54(H) 7 - 25 mg/dL 10/09/2024 8:47 AM EDT [facility] Creatinine 3.04(H) 0.60 - 1.30 mg/dL 10/09/2024 8:47 AM EDT [facility] [facility] Glucose 124(H) 70 - 100 mg/dL 10/09/2024 8:47 AM EDT [facility] Calcium 9.0 8.6 - 10.3 mg/dL 10/09/2024 8:47 AM EDT [facility] Phosphorus 3.5 2.1 - 4.7 mg/dL 10/09/2024 8:47 AM EDT [facility] Albumin 3.4(L) 3.5 - 5.7 g/dL 10/09/2024 8:47 AM EDT [facility] Osmolality, Calculated 294 278 - 305 mOsm/kg 10/09/2024 8:47 AM EDT [facility] EGFR 26 10/09/2024 8:47 AM EDT [facility] Comment:As of 2021, the [...] MD LAB BLOOD ORDERABLES Final Resu lt [facility] [address] [id number], [facility] * Prepare RBC, leukoreduced, 1 Units (10/09/2024 6:16 AM EDT) Product Code P0368X66 [facility] Unit Number [id number] HCLL Dispense Status Presumed Transfused_PT HCLL Blood Expiration Date [id number] HCLL Coding System [id number] [facility]LL Blood Bank Product us Eileen Schroeder MD, PhD BLOOD BANK PRODUCT OR DERABLES Final Result HC[facility] * (ABNORMAL) Protime-INR (10/09/2024 4:59 AM EDT) Protime 26.5(H) 12.1 - 15.1 seconds 10/09/2024 6:30 AM EDT [facility] INR 2.4(H) 0.9 - 1.1 10/09/2024 6:30 AM EDT [facility] Comment: RECOMMENDED THERAPEUTIC RANGES USING INR : Stable oral anticoagulant therapy: 2.0 - 3.0 Mechanical prosthetic heart valve: 2.5 - 3.5 Recurrent acute myocardial infarction: 2.5 - 3.5 Plasma 10/09/2024 4:59 AM EDT 10/09/2024 5:55 AM EDT us Eileen Schroeder MD, PhD LAB BLOOD ORDERABLES Final Result Performing Organization Address [facility]/ZIP Co de Phone Number [facility] [address] * (ABNORMAL) Hepatic Function Panel (10/09/2024 4:59 AM EDT) Total Bilirubin 9.0(H) 0.0 - 1.5 mg/dL 10/09/2024 6:42 AM EDT [facility] Bilirubin, Direct 4.60(H) 0.00 - 0.40 mg/dL 10/09/2024 6:42 AM EDT [facility] AST 38 13 - 39 U/L 10/09/2024 6:42 AM EDT [facility] ALT 18 7 - 52 U/L 10/09/2024 6:42 AM EDT [facility] Alkaline Phosphatase 122 36 - 125 U/L 10/09/2024 6:42 AM EDT [facility] Total Protein 4.8(L) 6.4 - 8.9 g/dL 10/09/2024 6:42 AM EDT [facility] Albumin 3.4(L) 3.5 - 5.7 g/dL 10/09/2024 6:42 AM EDT [facility] Bilirubin, Indirect 4.40(H) 0.00 - 1.10 mg/dL 10/09/2024 6:42 AM EDT [facility] Plasma 10/09/2024 4:59 AM EDT 10/09/2024 5:57 AM EDT Eileen Schroeder MD, PhD LAB BLOOD ORDERABLES Final Result Performing Organization Address [facility] Co de Phone Number [facility] [address] [facility]. [address] * Magnesium (10/09/2024 4:59 AM EDT) Magnesium 1.8 1.5 - 2.5 mg/dL 10/09/2024 6:42 AM EDT [facility] Plasma 10/09/2024 4:59 AM EDT 10/09/2024 5:57 AM EDT Eileen Schroeder MD, PhD LAB BLOOD ORDERABLES Final Result Performing Organization Address [facility] de Phone Number [facility] [address] * (ABNORMAL) Renal Function Panel w/EGFR (10/09/2024 4:59 AM EDT) Sodium 134 133 - 146 mmol/L 10/09/2024 6:42 AM EDT [facility] Potassium 3.3(L) 3.5 - 5.3 mmol/L 10/09/2024 6:42 AM EDT [facility] Chloride 107 98 - 110 mmol/L 10/09/2024 6:42 AM EDT [facility] CO2 16(L) 21 - 33 mmol/L 10/09/2024 6:42 AM EDT [facility] Anion Gap 11 3 - 16 mmol/L 10/09/2024 6:42 AM EDT [facility] BUN 56(H) 7 - 25 mg/dL 10/09/2024 6:42 AM EDT [facility] Creatinine 2.98(H) 0.60 - 1.30 mg/dL 10/09/2024 6:42 AM EDT [facility] Glucose 112(H) 70 - 100 mg/dL 10/09/2024 6:42 AM EDT [facility] Calcium 9.0 8.6 - 10.3 mg/dL 10/09/2024 6:42 AM EDT [facility] Phosphorus 3.5 2.1 - 4.7 mg/dL 10/09/2024 6:42 AM EDT [facility] Albumin 3.4(L) 3.5 - 5.7 g/dL 10/09/2024 6:42 AM EDT [facility] Osmolality, Calculated 294 278 - 305 mOsm/kg 10/09/2024 6:42 AM EDT [facility] EGFR 26 10/09/2024 6:42 AM EDT [facility] Comment:As of 2021, the [...] MD, PhD LAB BLOOD ORDERABLES Final Result [facility] [address] [place] [address], [facility] * (ABNORMAL) CBC (10/09/2024 4:59 AM EDT) Pathologist [facility] WBC 4.6 3.8 - 10.8 10E3/uL 10/09/2024 6:21 AM EDT [facility] RBC 2.17(L) 4.20 - 5.80 10E6/uL 10/09/2024 6:21 AM EDT [facility] Hemoglobin 8.0(L) 13.2 - 17.1 g/dL 10/09/2024 6:21 AM EDT [facility] Hematocrit 21.8(L) 38.5 - 50.0 % 10/09/2024 6:21 AM EDT [facility] MCV 100.5(H) 80.0 - 100.0 fL 10/09/2024 6:21 AM EDT [facility] MCH 36.7(H) 27.0 - 33.0 pg 10/09/2024 6:21 AM EDT [facility] MCHC 36.5(H) 32.0 - 36.0 g/dL 10/09/2024 6:21 AM EDT [facility] RDW 18.1(H) 11.0 - 15.0 % 10/09/2024 6:21 AM EDT [facility] Platelets 36(L) 140 - 400 10E3/uL 10/09/2024 6:21 AM EDT [facility] Comment:Specimen checked for clots. None detected. MPV 8.3 7.5 - 11.5 fL 10/09/2024 6:21 AM EDT [facility] Whole Blood 10/09/2024 4:59 AM EDT 10/09/2024 5:56 AM EDT us Eileen Schroeder MD, PhD LAB BLOOD ORDERABLES Final Result [facility] [address] [place] [address], [facility] * Renal Tx Recipient (10/09/2024 4:59 AM EDT) Pathologist [facility] Renal Transplant Recipient The request and specimen(s) for this test have been received and transported to the [facility] at [address] [place] [address]. [facility] will report results directly to the client. 10/09/2024 7:26 AM EDT [facility] Blood 10/09/2024 4:59 AM EDT 10/09/2024 7:26 AM EDT us Aaron Gonzalez MD LAB BLOOD ORDERABLES Final Resu lt [facility] [address] * Vancomycin, random (10/09/2024 4:59 AM EDT) Vancomycin Random 11.0 ug/mL 10/09/2024 6:33 AM EDT [facility] Comment:Reference range not established for this test. Plasma 10/09/2024 4:59 AM EDT 10/09/2024 5:56 AM EDT us Jodi Ortiz PharmD LAB BLOOD ORDERABLES Final Result Performing Organization Address City/[facility]/ZIP Co de Phone Number [facility] [address] [facility]. [address] * (ABNORMAL) CBC (10/08/2024 5:52 PM EDT) WBC 5.6 3.8 - 10.8 10E3/uL 10/08/2024 6:52 PM EDT [facility] RBC 2.38(L) 4.20 - 5.80 10E6/uL 10/08/2024 6:52 PM EDT [facility] Hemoglobin 8.3(L) 13.2 - 17.1 g/dL 10/08/2024 6:52 PM EDT [facility] Hematocrit 24.6(L) 38.5 - 50.0 % 10/08/2024 6:52 PM EDT [facility] MCV 103.2(H) 80.0 - 100.0 fL 10/08/2024 6:52 PM EDT [facility] MCH 34.7(H) 27.0 - 33.0 pg 10/08/2024 6:52 PM EDT [facility] MCHC 33.6 32.0 - 36.0 g/dL 10/08/2024 6:52 PM EDT [facility] RDW 18.5(H) 11.0 - 15.0 % 10/08/2024 6:52 PM EDT [facility] Platelets 39(L) 140 - 400 10E3/uL 10/08/2024 6:52 PM EDT [facility] Comment:CNV MPV 8.1 7.5 - 11.5 fL 10/08/2024 6:52 PM EDT [facility] Whole Blood 10/08/2024 5:52 PM EDT 10/08/2024 6:45 PM EDT us Eileen Schroeder MD, PhD LAB BLOOD ORDERABLES Final Result Performing Organization Address [facility] Co de Phone Number [facility] [address] * Transfuse RBC Has consent been obtained? Yes; Transfusion Rate: Per dept routine (10/08/2024 1:17 PM EDT) Eileen Schroeder MD, PhD NURSING TREATMENT ORD ERABLES - BLOOD ADMIN Final Result Performing Organization Address [facility] Co de Phone Number EXTERNAL * Transfuse RBC Has consent been obtained? Yes; Transfusion Rate: Per dept routine, 1 Units (10/08/2024 1:17 PM EDT) Eileen Schroeder MD, PhD NURSING TREATMENT ORD ERABLES - BLOOD ADMIN Final Result Performing Organization Address [facility] Co de Phone Number EXTERNAL * (ABNORMAL) MMR(IgG) Panel (Measles, Mumps, Rubella) (10/08/2024 10:25 AM EDT) Mumps IgG Positive 10/08/2024 11:39 AM EDT [facility] MUMPS IGG NUM 99.00(H) 0.0 - 8.9 U/mL 10/08/2024 11:39 AM EDT [facility] Rubella IgG Scr Positive 10/08/2024 11:40 AM EDT [facility] RUB NUM 4.15(H) 0.00 - 0.89 INDEX 10/08/2024 11:40 AM EDT [facility] Rubeola Ab, IgG Positive 10/08/2024 11:39 AM EDT [facility] RUB IGG NUM 273.00(H) 0.00 - 13.40 U/mL 10/08/2024 11:39 AM EDT [facility] Serum 10/08/2024 10:2 5 AM EDT 10/08/2024 10:49 AM EDT Narrative [facility] - 10/08/2024 11:40 AM [...] ORDERABLES Final Resu lt Performing Organization Address [facility] Co de Phone Number [facility] [address] * (ABNORMAL) Hemoglobin A1C (10/08/2024 10:25 AM EDT) Hemoglobin A1C 3.7(L) 4.0 - 5.6 % 10/09/2024 1:22 PM EDT [facility] Comment: Hemoglobin A1c Interpretation [...] lt [facility] [address] [place] [id number], [facility] * (ABNORMAL) Vitamin D 25 Hydroxy (10/08/2024 10:25 AM EDT) Vit D, 25-Hydroxy 7.1(L) 30.0 - 100.0 ng/mL 10/08/2024 11:36 AM EDT [facility] Comment: Vitamin D deficiency has been defined by the [place] [employer] (IOM) and an Endocrine Society [...] Resu lt [facility] [address] * Iron Studies (Iron + TIBC) [...] ORDERABLES Final Resu lt Performing Organization Address [facility] Co de Phone Number [facility] [address] [place] [address]. [address] * (ABNORMAL) Ferritin (10/08/2024 10:25 AM EDT) Ferritin 706.9(H) 23.9 - 336.2 ng/mL 10/08/2024 11:35 AM EDT [facility] Serum 10/08/2024 10:2 5 AM EDT 10/08/2024 10:49 AM EDT Gerri Peterson MD LAB BLOOD ORDERABLES Final Resu lt Performing Organization Address [facility] Co de Phone Number [facility] [address] [place] [address]. [address] * QuantiFERON TB2 Ag (10/08/2024 10:25 AM EDT) QuantiFERON TB2 Ag Value 0.07 10/10/2024 10:41 AM EDT [facility] Plasma 10/08/2024 10:2 5 AM EDT 10/08/2024 11:05 AM EDT Gerri Peterson MD LAB BLOOD ORDERABLES Final Resu lt Performing Organization Address City/[facility]/ZIP Co de Phone Number [facility] [address] [place] [address]. [address] * QuantiFERON TB1 Ag (10/08/2024 10:25 AM EDT) QuantiFERON TB1 Ag Value 0.06 10/10/2024 10:41 AM EDT [facility] Plasma 10/08/2024 10:2 5 AM EDT 10/08/2024 11:05 AM EDT Gerri Peterson MD LAB BLOOD ORDERABLES Final Resu lt [facility] [address] * QuantiFERON Nil (10/08/2024 10:25 AM EDT) QuantiFERON Nil 0.06 10:41 AM EDT [facility] Plasma 10/08/2024 10:2 5 AM EDT 10/08/2024 11:05 AM EDT Gerri Peterson MD LAB BLOOD ORDERABLES Final Resu lt Performing Organization Address [facility]/ZIP Co de Phone Number [facility] [address] [facility]. [address] * QuantiFERON Mitogen (10/08/2024 10:25 AM EDT) QuantiFERON Interpretation Negative Negative 10/10/2024 10:41 AM EDT [facility] Comment:Negative result geovanny cates M. tuberculosis infection is NOT likely. Negative results do not preclude tuberculosis infection (especially in immunosuppressed patients). Negative results have a TB antigen minus Nil value less than 0.35 IU/mL. In cases with high suspicion of disease, retesting or additional testing with medical evaluation may be useful. QuantiFERON Mitogen 4.87 10/10 10:41 AM EDT [facility] Plasma 10/08/2024 10:2 5 AM EDT 10/08/2024 11:05 AM EDT Narrative [facility] - 10/10/2024 10:41 AM [...] ORDERABLES Final Resu lt Performing Organization Address [facility]/ZIP Co de Phone Number [facility] [address] [facility]. [address] * Reticulocyte Count, Auto (10/08/2024 7:41 AM EDT) Retic Ct Pct 1.35 0.50 - 2.00 % 10/08/2024 9:12 AM EDT [facility] Retic Ct Abs 26,190 25,000 - 90,000 /uL 10/08/2024 9:14 AM EDT [facility] Immature Retic Fract 0.37 0.09 - 0.56 10/08/2024 9:12 AM EDT [facility] Whole Blood 10/08/2024 7:41 AM EDT 10/08/2024 8:51 AM EDT us Angie Blanchard MD LAB BLOOD ORDERABLES Final Res ult Performing Organization Address [facility] Co de Phone Number [facility] [address] [facility]. [address] * (ABNORMAL) Haptoglobin (10/08/2024 7:41 AM EDT) Haptoglobin <30(L) 44 - 215 mg/dL 10/08/2024 8:53 AM EDT [facility] Serum 10/08/2024 7:41 AM EDT 10/08/2024 7:51 AM EDT Eileen Schroeder MD, PhD LAB BLOOD ORDERABLES Final Result Performing Organization Address [facility]/ZIP Co de Phone Number [facility] [address] [facility]. [address] * (ABNORMAL) CBC - Post Transfusion (10/08/2024 7:41 AM EDT) WBC 3.7(L) 3.8 - 10.8 10E3/uL 10/08/2024 8:34 AM EDT [facility] RBC 1.94(L) 4.20 - 5.80 10E6/uL 10/08/2024 8:34 AM EDT [facility] Hemoglobin 7.1(L) 13.2 - 17.1 g/dL 10/08/2024 8:34 AM EDT [facility] Hematocrit 20.0(L) 38.5 - 50.0 % 10/08/2024 8:34 AM EDT [facility] MCV 103.1(H) 80.0 - 100.0 fL 10/08/2024 8:34 AM EDT [facility] MCH 36.5(H) 27.0 - 33.0 pg 10/08/2024 8:34 AM EDT [facility] MCHC 35.4 32.0 - 36.0 g/dL 10/08/2024 8:34 AM EDT [facility] RDW 17.2(H) 11.0 - 15.0 % 10/08/2024 8:34 AM EDT [facility] Platelets 37(L) 140 - 400 10E3/uL 10/08/2024 8:34 AM EDT [facility] Comment: Specimen checked for clots. None detected. Slide Reviewed for PLT Clumps. None Seen. _Platelet Morphology Normal _Platelets Appear Decreased MPV 8.7 7.5 - 11.5 fL 10/08/2024 8:34 AM EDT [facility] Whole Blood 10/08/2024 7:41 AM EDT 10/08/2024 7:52 AM EDT Narrative [facility] - 10/08/2024 8:34 AM EDT Post-transfusion us Eileen Schroeder MD, PhD LAB BLOOD ORDERABLES Final Result [facility] [address] [place], [place] [address] [place] [address] * Antibody Screen (10/08/2024 7:41 AM EDT) Antibody Screen Negative 10/08/2024 8:26 AM EDT [facility] Blood 10/08/2024 7:41 AM EDT 10/08/2024 7:57 AM EDT Narrative [facility] - 10/08/2024 8:32 AM EDT Testing performed by [facility] Transfusion Service Eileen Schroeder MD, PhD BLOOD BANK TEST ORDER PAL Final Result [facility] [address] * ABO/Rh (10/08/2024 7:41 AM EDT) ABO Grouping O 10/08/2024 8:14 AM EDT [facility] Rh Type Positive 10/08/2024 8:14 AM EDT [facility] Blood 10/08/2024 7:41 AM EDT 10/08/2024 7:57 AM EDT Eileen Schroeder MD, PhD BLOOD BANK TEST ORDER PAL Final Result Performing Organization Address [facility]/ZIP Co de Phone Number [facility] [address] * (ABNORMAL) Lactate dehydrogenase (10/08/2024 5:36 AM EDT) LD 102(L) 110 - 270 U/L 10/08/2024 8:20 AM EDT [facility] Plasma 10/08/2024 5:36 AM EDT 10/08/2024 7:58 AM EDT us Angie Blanchard MD LAB BLOOD ORDERABLES Final Res ult [facility] [address] [facility]. [address] * (ABNORMAL) Protime-INR (10/08/2024 5:36 AM EDT) Protime 26.9(H) 12.1 - 15.1 seconds 10/08/2024 6:11 AM EDT [facility] INR 2.4(H) 0.9 - 1.1 10/08/2024 6:11 AM EDT [facility] Comment: RECOMMENDED THERAPEUTIC RANGES USING INR : Stable oral anticoagulant therapy: 2.0 - 3.0 Mechanical prosthetic heart valve: 2.5 - 3.5 Recurrent acute myocardial infarction: 2.5 - 3.5 Plasma 10/08/2024 5:36 AM EDT 10/08/2024 5:52 AM EDT us Elieen Schroeder MD, PhD LAB BLOOD ORDERABLES Final Result [facility] [address] [place] [address], [facility] * (ABNORMAL) Hepatic Function Panel (10/08/2024 5:36 AM EDT) Total Bilirubin 7.7(H) 0.0 - 1.5 mg/dL 10/08/2024 6:25 AM EDT [facility] Bilirubin, Direct 4.28(H) 0.00 - 0.40 mg/dL 10/08/2024 6:25 AM EDT [facility] AST 34 13 - 39 U/L 10/08/2024 6:25 AM EDT [facility] ALT 16 7 - 52 U/L 10/08/2024 6:25 AM EDT [facility] Alkaline Phosphatase 103 36 - 125 U/L 10/08/2024 6:25 AM EDT [facility] Total Protein 4.7(L) 6.4 - 8.9 g/dL 10/08/2024 6:25 AM EDT [facility] Albumin 3.5 3.5 - 5.7 g/dL 10/08/2024 6:25 AM EDT [facility] Bilirubin, Indirect 3.42(H) 0.00 - 1.10 mg/dL 10/08/2024 6:25 AM EDT [facility] Plasma 10/08/2024 5:36 AM EDT 10/08/2024 5:52 AM EDT Eileen Schroeder MD, PhD LAB BLOOD ORDERABLES Final Result [facility] [address] [facility]. [address] * Magnesium (10/08/2024 5:36 AM EDT) Magnesium 1.9 1.5 - 2.5 mg/dL 10/08/2024 6:25 AM EDT [facility] Plasma 10/08/2024 5:36 AM EDT 10/08/2024 5:52 AM EDT Eileen Schroeder MD, PhD LAB BLOOD ORDERABLES Final Result Performing Organization Address [facility]/ZIP Co de Phone Number [facility] [address] * (ABNORMAL) Renal Function Panel w/EGFR (10/08/2024 5:36 AM EDT) Sodium 135 133 - 146 mmol/L 10/08/2024 6:25 AM EDT [facility] Potassium 3.2(L) 3.5 - 5.3 mmol/L 10/08/2024 6:25 AM EDT [facility] Chloride 106 98 - 110 mmol/L 10/08/2024 6:25 AM EDT [facility] CO2 17(L) 21 - 33 mmol/L 10/08/2024 6:25 AM EDT [facility] Anion Gap 12 3 - 16 mmol/L 10/08/2024 6:25 AM EDT [facility] BUN 61(H) 7 - 25 mg/dL 10/08/2024 6:25 AM EDT [facility] Creatinine 3.10(H) 0.60 - 1.30 mg/dL 10/08/2024 6:25 AM EDT [facility] Glucose 106(H) 70 - 100 mg/dL 10/08/2024 6:25 AM EDT [facility] Calcium 9.0 8.6 - 10.3 mg/dL 10/08/2024 6:25 AM EDT [facility] Phosphorus 4.0 2.1 - 4.7 mg/dL 10/08/2024 6:25 AM EDT [facility] Albumin 3.5 3.5 - 5.7 g/dL 10/08/2024 6:25 AM EDT [facility] Osmolality, Calculated 298 278 - 305 mOsm/kg 10/08/2024 6:25 AM EDT [facility] EGFR 25 10/08/2024 6:25 AM EDT [facility] Comment:As of 2021, the [...] MD, PhD LAB BLOOD ORDERABLES Final Result [facility] [address] * (ABNORMAL) CBC (10/08/2024 5:36 AM EDT) WBC 3.2(L) 3.8 - 10.8 10E3/uL 10/08/2024 6:41 AM EDT [facility] RBC 1.86(L) 4.20 - 5.80 10E6/uL 10/08/2024 6:41 AM EDT [facility] Hemoglobin 6.9(L) 13.2 - 17.1 g/dL 10/08/2024 6:41 AM EDT [facility] Hematocrit 18.9(L) 38.5 - 50.0 % 10/08/2024 6:41 AM EDT [facility] MCV 101.6(H) 80.0 - 100.0 fL 10/08/2024 6:41 AM EDT [facility] MCH 36.9(H) 27.0 - 33.0 pg 10/08/2024 6:41 AM EDT [facility] MCHC 36.3(H) 32.0 - 36.0 g/dL 10/08/2024 6:41 AM EDT [facility] RDW 17.0(H) 11.0 - 15.0 % 10/08/2024 6:41 AM EDT [facility] Platelets 34(L) 140 - 400 10E3/uL 10/08/2024 6:41 AM EDT [facility] Comment: Specimen checked for clots. None detected. Slide Reviewed for PLT Clumps. None Seen. Platelet Estimate Decreased 10/08/2024 6:41 AM EDT [facility] MPV 8.4 7.5 - 11.5 fL 10/08/2024 6:41 AM EDT [facility] Whole Blood 10/08/2024 5:36 AM EDT 10/08/2024 5:53 AM EDT Narrative [facility] - 10/08/2024 6:41 AM EDT Peripheral blood smear was scanned per review criteria approved by the laboratory esthetician and [facility]. us Eileen Schroeder MD, PhD LAB BLOOD ORDERABLES Final Result [facility] [address] * Vancomycin, random (10/08/2024 5:36 AM EDT) Vancomycin Random 16.0 ug/mL 10/08/2024 6:20 AM EDT [facility] Comment:Reference range not established for this test. Plasma 10/08/2024 5:36 AM EDT 10/08/2024 5:52 AM EDT us Jodi FreireD LAB BLOOD ORDERABLES Final Result [facility] [address] * Urine Drug Confirmation (10/07/2024 10:50 PM EDT) BARBITURATES NOT PRESENT 10/09/2024 1:33 PM EDT [facility] BENZODIAZEPINES PRESENT 1:33 PM EDT [facility] Nordiazepam 3 ng/mL 10/09/2024 1:33 PM EDT [facility] Temazepam 6 ng/mL 10/09/2024 1:33 PM EDT [facility] CANNABINOIDS NOT PRESENT 10/09/2024 1:33 PM EDT [facility] MECHANICAL CAR CHECKER STIMULANTS NOT PRESENT 1:33 PM EDT [facility] OPIOID ANALGESICS PRESENT 025 1:33 PM EDT [facility] Oxycodone 300 ng/mL 10/09/2024 1:33 PM EDT [facility] Oxymorphone 32 ng/mL 10/09/2024 1:33 PM EDT [facility] Tramadol >1000 ng/mL 10/09/2024 1:33 PM EDT [facility] OPIOID ANTAGONISTS NOT PRESENT 10/09 1:33 PM EDT [facility] SEDATIVES/MUSCLE RELAXANTS NOT PRESENT 10/09/2024 1:33 PM EDT [facility] TRICYCLIC ANTIDEPRESSANTS NOT PRESENT 10/09/2024 1:33 PM EDT [facility] [facility] Urine 10/07/2024 10:5 0 PM EDT 10/08/2024 3:00 AM EDT Gerri Peterson MD URINE ORDERABLES Final Result [facility] [address] * Giardia Cryptosporidium Antigens (10/07/2024 10:50 PM EDT) Cryptosporidium Ag Negative Negative 2024 7:59 AM EDT [facility] Giardia Ag Negative Negative 10/08/2024 7:59 AM EDT [facility] Comment: Detection of Giardia and Cryptosporidium antigen is more sensitive and specific than microscopy. Because antigens are shed continuously, repeat testing is rarely warranted. Feces 10/07/2024 10:5 0 PM EDT 10/08/2024 1:53 AM EDT Comment:F Bisi Hernandez DO MICROBIOLOGY - GENERAL ORDERABLE S Final Result [facility] [address] [place] [address], [facility] * (ABNORMAL) Urine Drug Screen Reflex to Confirmation (10/07/2024 10:50 PM EDT) Amphetamine, 500 ng/mL Cutoff Negative Negative 10/08/2024 3:00 AM EDT [facility] Barbiturates UR, 300 ng/mL Cutoff Negative Negative 10/08/2024 3:00 AM EDT [facility] Buprenorphine, 5 ng/mL Cutoff Negative Negative 10/08/2024 3:00 AM EDT [facility] Benzodiazepines UR, 300 ng/mL Cutoff Negative Negative 10/08/2024 3:00 AM EDT [facility] Cocaine UR, 300 ng/mL Cutoff Negative Negative 10/08/2024 3:00 AM EDT [facility] Methadone, UR, 300 ng/mL Cutoff Negative Negative 10/08/2024 3:00 AM EDT [facility] Opiates UR, 300 ng/mL Cutoff Negative Negative 10/08/2024 3:00 AM EDT [facility] Oxycodone, 100 ng/mL Cutoff Presumptive Positive(A) Negative 10/08/2024 3:00 AM EDT [facility] Tricyclic Antidepressants, 300 ng/mL Cutoff Negative Negative 10/08/2024 3:00 AM EDT [facility] Comment:This test has been d eveloped and its performance characteristics determined by [facility] which is certified under the [...] eveloped and its performance characteristics determined by [facility] which is certified under the [...] PM EDT 10/08/2024 2:08 AM EDT Narrative [facility] - 10/08/2024 3:00 AM EDT CONFIRMATION TO FOLLOW Gerri Peterson MD URINE ORDERABLES Final Result [facility] [address] * Comprehensive Drug Screen (10/07/2024 10:50 PM EDT) Creatinine, Ur CANCELED mg/dL 10/08/2024 7:09 AM EDT [facility] Comment:The released value 8 7.30 was canceled by YAQUELIN on 10/08/2024 07:09 BARBITURATES CANCELED [facility] Butalbital CANCELED [facility] Phenobarbital [facility]ED [facility] Secobarbital CANCELED [facility] BENZODIAZEPINES CANCELED [facility] Alprazolam CANCELED [facility] Clonazepam CANCELED [facility] Diazepam CANCELED [facility] Alpha-Hydroxyalprazo mcknight CANCELED [facility] Lorazepam CANCELED [facility] Midazolam CANCELED [facility] Nordiazepam CANCELED [facility] Oxazepam CANCELED [facility] Temazepam CANCELED [facility] CANNABINOIDS CANCELED [facility] THC-COOH CANCELED [facility] MECHANICAL CAR CHECKER STIMULANTS [facility]ELED [facility] Cocaine Metabolite(benzoylec gonine) CANCELED [facility] Amphetamine CANCELED [facility] Methamphetamine [facility]ELED [facility] MDA CANCELED [facility] MDEA CANCELED [facility] Phencyclindine (PCP) CANCELED [facility] OPIOID ANALGESICS CANCELED [facility] Heroin Metabolite(6-RAMONA) CANCELED [facility] Codeine CANCELED [facility] Morphine CANCELED [facility] Hydrocodone CANCELED [facility] Hydromorphone CANCELED [facility] Oxycodone CANCELED [facility] Oxymorphone CANCELED [facility] Meperidine CANCELED [facility] Normeperidine CANCELED [facility] Methadone CANCELED [facility] Methadone Metabolite (EDDP) CANCELED [facility] Tramadol CANCELED [facility] Fentanyl CANCELED [facility] Norfentanyl CANCELED [facility] Sufentanil CANCELED [facility] OPIOID ANTAGONISTS CANCELED [facility] Buprenorphine CANCELED [facility] Norbuprenorphine CANCELED [facility] Naltrexone CANCELED [facility] Naloxone CANCELED [facility] SEDATIVES/MUSCLE RELAXANTS CANCELED [facility] Carisoprodol CANCELED [facility] Meprobamate CANCELED [facility] TRICYCLIC ANTIDEPRESSANTS CANCELED [facility] Amitriptyline CANCELED [facility] Clomipramine CANCELED [facility] Desipramine CANCELED [facility] Doxepin CANCELED [facility] Imipramine CANCELED [facility] Nortriptyline CANCELED [facility] Urine Creatinine CANCELED mg/dL [facility] Nitrite CANCELED [facility] Glutaraldehyde CANCELED [facility] pH CANCELED 10/08/2024 7:09 AM EDT [facility] Comment:The released value 5 .6 was canceled by YAQUELIN on 10/08/2024 07:09 Specific [place] CANCELED 10/09/19 7:09 AM EDT [facility] Comment:The released value 1 .009 was canceled by YAQUELIN on 10/08/2024 07:09 Bleach [facility]CELED [facility] Pyridinium Chlorochromate CANCELED [facility] Urine 10/07/2024 10:5 0 PM EDT 10/08/2024 2:07 AM EDT Narrative [facility] - 10/08/2024 7:09 AM EDT See accn [id number] Gerri Peterson MD URINE ORDERABLES Edited Result - Final Performing Organization Address [facility] Co de Phone Number [facility] [address] [place] [address] * Ova and Parasite Comprehensive w/ Giardia/Crypto (10/07/2024 10:50 PM EDT) Pathologist [facility] O & P Method: Concentration and Trichrome Stain [facility] Results No Amoeba, Ova, Or Parasites Seen. -- O and P examination of additional specimens is recommended only for symptomatic patients, immunosuppressed patients or those with an appropriate travel history. [facility] Feces FECES / Unknown 10/07/2024 1 0:50 PM EDT 10/08/2024 1:53 AM EDT Comment:F Bisi Hernandez DO MICROBIOLOGY - GENERAL ORDERABLE S Final Result Performing Organization Address [facility] de Phone Number [facility] [address] [place] [address] * Enteric Pathogen Panel (10/07/2024 10:50 PM EDT) Campylobacter Group (C. ecoli, C. jejuni, C. trino) Not Detected Not Detected 10/08/2024 4:40 AM EDT [facility] Salmonella species Not Detected Not Detected 10/08/2024 4:40 AM EDT [facility] Shigella species Not Detected Not Detected 10/08/2024 4:40 AM EDT [facility] Vibrio Group (Vibrio cholerae, Vibrio parahaemolyticus) Not Detected Not Detected 10/08/2024 4:40 AM EDT [facility] Yersinia enterocolitica Not Detected Not Detected 10/08/2024 4:40 AM EDT [facility] Shiga toxin 1 Not Detected Not Detected 10/08/2024 4:40 AM EDT [facility] Shiga toxin 2 Not Detected Not Detected 10/08/2024 4:40 AM EDT [facility] Norovirus Not Detected Not Detected 10/08/2024 4:40 AM EDT [facility] Rotavirus Not Detected Not Detected 10/08/2024 4:40 AM EDT [facility] Comment: The Enteric Pathogen [...] ORDERABLE S Final Result Performing Organization Address [facility] Co de Phone Number [facility] [address] [facility] * Hepatitis C Antibody (10/07/2024 6:38 PM EDT) HCV Ab Nonreactive Nonreactive 10/07/2024 7:56 PM EDT [facility] Comment:Health Department no tified in accordance with reportable infectious disease guidelines. Serum 10/07/2024 6:38 PM EDT 10/07/2024 6:52 PM EDT Narrative [facility] - 10/07/2024 7:56 PM EDT Antibodies to HCV not detected; does not exclude the possibility of exposure to HCV. Gerri Peterson MD LAB BLOOD ORDERABLES Final Resu lt [facility] [address] * Hepatitis B Surface Antibody, Quantitati (10/07/2024 6:38 PM EDT) Hep B S Ab Nonreactive Nonreactive 10/07/2024 8:00 PM EDT [facility] HBSAB NUMBER 7.88 0.00 - 7.99 mIU/mL 10/07/2024 8:00 PM EDT [facility] Serum 10/07/2024 6:38 PM EDT 10/07/2024 6:52 PM EDT [facility] - 10/07/2024 8:00 PM EDT Individual is considered not immune to HBV infection. Gerri Peterson MD LAB BLOOD ORDERABLES Final Resu lt Performing Organization Address [facility] Co de Phone Number [facility] [address] [facility] * Hepatitis B surface antigen (10/07/2024 6:38 PM EDT) Hep B Surface Ag Nonreactive Nonreactive 10/07/2024 7:51 PM EDT [facility] Comment:Health Department no tified in accordance with reportable infectious disease guidelines. Serum 10/07/2024 6:38 PM EDT 10/07/2024 6:52 PM EDT [facility] - 10/07/2024 7:51 PM EDT Specimen is considered negative for HBsAg. Gerri Peterson MD LAB BLOOD ORDERABLES Final Resu lt Performing Organization Address [facility]/ZIP Co de Phone Number [facility] [address] [facility] * Hepatitis A Antibody Total (10/07/2024 6:38 PM EDT) Anti-HAV Total (IgG + IgM) Nonreactive 10/07/2024 7:53 PM EDT [facility] Serum 10/07/2024 6:38 PM EDT 10/07/2024 6:52 PM EDT [facility] - 10/07/2024 7:53 PM EDT HAV antibodies not detected Gerri Peterson MD LAB BLOOD ORDERABLES Final Resu lt Performing Organization Address City/[facility]/ZIP Co de Phone Number [facility] [address] [facility] * Hepatitis A IgM (10/07/2024 6:38 PM EDT) Hep A IgM Nonreactive Nonreactive 10/07/2024 7:46 PM EDT [facility] Serum 10/07/2024 6:38 PM EDT 10/07/2024 6:52 PM EDT Narrative [facility] - 10/07/2024 7:46 PM EDT IgM anti-HAV not detected. Does not exclude the possibility of exposure to or infection with HAV. Levels of IgM anti-HAV may be below the cut-off in early infection. Gerri Peterson MD LAB BLOOD ORDERABLES Final Resu lt Performing Organization Address [facility] Co de Phone Number [facility] [address] [facility] * (ABNORMAL) Lipid Profile (10/07/2024 6:37 PM EDT) Non-HDL Cholesterol, Calculated See Note 0 - 129 mg/dL 10/07/2024 7:42 PM EDT [facility] Comment: Desirable: < 130 mg/dL Above Desirable: 130-159 mg/dL Borderline High: 160-189 mg/dL High: 190-219 mg/dL Very High: > 219 mg/dL Unable to calculate result either because contributing result(s) are outside of reportable range or are not available. Cholesterol, Total <25 0 - 200 mg/dL 10/07/2024 7:42 PM EDT [facility] Triglycerides 30 10 - 149 mg/dL 10/07/2024 7:42 PM EDT [facility] HDL 4(L) 60 - 92 mg/dL 10/07/2024 7:42 PM EDT [facility] Comment: LIPID PROFILE INTERPRETATION [...] Cholesterol See Note mg/dL 7:42 PM EDT [facility] Comment:Unable to calculate result either because contributing result(s) are outside of reportable range or are not available. Plasma 10/07/2024 6:37 PM EDT 10/07/2024 7:06 PM EDT [facility] - 10/07/2024 7:42 PM EDT LDL cholesterol calculated using the Friedewald equation. us Gerri Peterson MD LAB BLOOD ORDERABLES Final Resu lt [facility] [address] [id number], [facility] * (ABNORMAL) Alpha 1 Antitrypsin AAT Quant & Mutation (10/07/2024 6:37 PM EDT) A-1 Antitrypsin 99(L) 101 - 187 mg/dL 10/09/2024 4:28 AM EDT [facility] A-1 Antitrypsin Pheno Comment 10/10/2024 4:05 PM EDT [facility] Comment: A1A Phenotype is consistent with a heterozygous phenotype consisting of one M (normal) allele and one allele that cannot be identified at this time. The unknown allele is not consistent with Z (deficient), S (deficient), or F (deficient). MM Phenotype is considered to be normal , producing normal serum levels of [id number] inhibitor and not associated with clinical disease. [...] PM EDT 10/10/2024 4:08 PM EDT Narrative [facility] - 10/10/2024 4:08 PM EDT PERFORMED AT: [facility] [address] [id number] COLLECTION CARD CLERK: Bassam Khalil, PhD PHONE: [phone] PERFORMED AT: [facility] [address] [id number] COLLECTION CARD CLERK: Mandy Abdul MD PHONE: [phone] Gerri Peterson MD LAB BLOOD ORDERABLES Final Resu lt [facility] [address] * (ABNORMAL) CMV IgG Antibody (10/07/2024 6:37 PM EDT) CMV IgG Positive(A ) Negative 10/07/2024 8:26 PM EDT [facility] CMV IGG NUM 8.40(H) 0.00 - 0.59 U/mL 10/07/2024 8:26 PM EDT [facility] Serum 10/07/2024 6:37 PM EDT 10/07/2024 6:50 PM EDT Gerri Peterson MD LAB BLOOD ORDERABLES Final Resu lt [facility] [address] [facility]. [address] * HIV-1 and HIV-2 Antibodies w Reflex (10/07/2024 6:37 PM EDT) HIV 1+2 AB/AGN Nonreactive Nonreactive 10/07/2024 7:54 PM EDT [facility] Serum 10/07/2024 6:37 PM EDT 10/07/2024 7:06 PM EDT [facility] - 10/07/2024 7:54 PM EDT \HIVRNR Gerri Peterson MD LAB BLOOD ORDERABLES Final Resu lt Performing Organization Address City/[facility]/ZIP Co de Phone Number [facility] [address] [facility] * TSH (Thyroid Stimulating Hormone) (10/07/2024 6:37 PM EDT) Pathologist [facility] TSH 0.81 0.45 - 4.12 uIU/mL 10/07/2024 8:17 PM EDT [facility] Serum 10/07/2024 6:37 PM EDT 10/07/2024 6:50 PM EDT Gerri Peterson MD LAB BLOOD ORDERABLES Final Resu lt [facility] [address] [facility] * Katie-Watkins virus early antigen antibody, IgG (10/07/2024 6:37 PM EDT) EBV Early Antigen Ab, IgG <9.0 0.0 - 8.9 U/mL 10/09/2024 2:16 PM EDT [facility] Comment: Negative < 9.0 Equivocal 9.0 - 10.9 Positive >10.9 Serum Frozen 10/07/2024 6:37 PM EDT 10/09/2024 3:07 PM EDT Narrative [facility] - 10/09/2024 3:07 PM EDT PERFORMED AT: [address] [id number] COLLECTION CARD CLERK: Bassam Khalil, PhD PHONE: [phone] Gerri Peterson MD LAB BLOOD ORDERABLES Final Resu lt Performing Organization Address [facility] Co de Phone Number [facility] [address] [place] [address] * (ABNORMAL) Varicella zoster antibody, IgG (10/07/2024 6:37 PM EDT) Varicella IgG Positive( A) Negative S/CO 10/07/2024 8:34 PM EDT [facility] Comment:Result indicates the presence [...] - 0.99 S/CO 10/07/2024 8:34 PM EDT [facility] Serum 10/07/2024 6:37 PM EDT 10/07/2024 6:50 PM EDT Gerri Peterson MD LAB BLOOD ORDERABLES Final Resu lt Performing Organization Address [facility] Co de Phone Number [facility] [address] [place] [address] * Toxoplasma gondii antibody, IgG (10/07/2024 6:37 PM EDT) Toxoplasma Gondii IgG <3.0 0.0 - 7.1 IU/mL 10/09/2024 7:53 AM EDT [facility] Comment: Negative <7.2 Equivocal 7.2 - 8.7 Positive >8.7 Serum 10/07/2024 6:37 PM EDT 10/09/2024 8:07 AM EDT Narrative [facility] - 10/09/2024 8:07 AM EDT PERFORMED AT: [facility] [address] [id number] COLLECTION CARD CLERK: Bassam Khalil, PhD PHONE: [phone] Gerri Peterson MD LAB BLOOD ORDERABLES Final Resu lt [facility] [address] [facility] * Syphilis Screening (Trepia) (10/07/2024 6:37 PM EDT) Treponema Pallidum Negative Negative 10/07/2024 8:27 PM EDT [facility] Comment: No serological evidence of infection with Treponema pallidum (incubating or early primary syphilis cannot be excluded). Serum 10/07/2024 6:37 PM EDT 10/07/2024 6:50 PM EDT us Gerri Peterson MD LAB BLOOD ORDERABLES Final Resu lt Performing Organization Address City/[facility]/ZIP Co de Phone Number [facility] [address] [facility] * Strongyloides Ab (10/07/2024 6:37 PM EDT) Strongyloides Ab Negative Negative 10/11/19 11:51 AM EDT [facility] Serum 10/07/2024 6:37 PM EDT 10/10/2024 12:07 PM EDT Narrative [facility] - 10/10/2024 12:07 PM EDT PERFORMED AT: [facility] [address] [id number] COLLECTION CARD CLERK: Mandy Abdul MD PHONE: [phone] Gerri Peterson MD LAB BLOOD ORDERABLES Final Resu lt [facility] [address] [facility] * Phosphatidylethanol Confirmation, B (10/07/2024 6:37 PM EDT) PETH 16:0/18.1 (POPETH) <10 Cutoff: 10 ng/mL 10/10/2024 10:42 AM EDT [facility] Comment: Phosphatidylethanol (PEth) homologues [...] Cutoff: 10 ng/mL 10/10/2024 10:42 AM EDT [facility] Comment: PEth 16:0/18:2 (PLPEth) Reference ranges are not well established PEth Interpretation Negative. 10/10 10:42 AM EDT [facility] Comment: ADDITIONAL INFORMATION This report is intended for use in clinical monitoring and management of patients. It is not intended for use in employment-related testing. This test was developed and its performance characteristics determined by [facility] in a manner consistent with CLIA requirements. This test has not been cleared or approved by the U.S. Food and Drug Administration. Test Performed by: [facility] [address] [place] [address] Bsa Officer: Kathy Ortiz Ph.D.; CLIA# [id number] Whole Blood 10/07/2024 6:37 PM EDT 10/10/2024 10:42 AM EDT us Gerri Peterson MD LAB BLOOD ORDERABLES Final Resu lt [facility] [address] [place] [address], [facility] * (ABNORMAL) MMR(IgG) Panel (Measles, Mumps, Rubella) (10/07/2024 6:37 PM EDT) Mumps IgG Positive 10/07/2024 8:26 PM EDT [facility] MUMPS IGG NUM 77.80(H) 0.0 - 8.9 U/mL 10/07/2024 8:26 PM EDT [facility] Rubella IgG Scr Positive 10/07/2024 8:28 PM EDT [facility] RUB NUM 3.04(H) 0.00 - 0.89 INDEX 10/07/2024 8:28 PM EDT [facility] Rubeola Ab, IgG Positive 10/07/2024 8:26 PM EDT [facility] RUB IGG NUM 192.00(H) 0.00 - 13.40 U/mL 10/07/2024 8:26 PM EDT [facility] Serum 10/07/2024 6:37 PM EDT 10/07/2024 6:50 PM EDT Narrative [facility] - 10/07/2024 8:28 PM [...] MD LAB BLOOD ORDERABLES Final Resu lt [facility] [address] [place] [address], [facility] * IgA (10/07/2024 6:37 PM EDT) IgA 227.0 70.0 - 400.0 mg/dL 10/08/2024 11:07 AM EDT [facility] Comment:Please interpret the se findings in conjunction with clinical findings, protein electrophoresis, and immunotyping/immunofixation results. Serum 10/07/2024 6:37 PM EDT 10/07/2024 6:50 PM EDT Gerri Peterson MD LAB BLOOD ORDERABLES Final Resu lt Performing Organization Address City/[facility]/ZIP Co de Phone Number [facility] [address] * Ethanol, Serum (10/07/2024 6:37 PM EDT) Ethanol <10 0 - 10 mg/dL 10/07/2024 8:36 PM EDT [facility] Serum 10/07/2024 6:37 PM EDT 10/07/2024 6:50 PM EDT Gerri Peterson MD LAB BLOOD ORDERABLES Final Resu lt Performing Organization Address [facility] Co de Phone Number [facility] [address] [facility] * ABO/Rh - Second (10/07/2024 6:37 PM EDT) ABO Grouping O 10/07/2024 7:16 PM EDT [facility] Rh Type Positive 10/07/2024 7:16 PM EDT [facility] Blood 10/07/2024 6:37 PM EDT 10/07/2024 6:56 PM EDT Narrative [facility] - 10/07/2024 7:18 PM EDT This is not a duplicate order. It is required that ABO be drawn twice for LIVER TRANSPLANT Gerri Peterson MD BLOOD BANK TEST ORDERABLES Denisse l Result [facility] [address] * ABO/Rh- Initial (10/07/2024 6:37 PM EDT) ABO Grouping O 10/07/2024 7:59 PM EDT [facility] Rh Type Positive 10/07/2024 7:59 PM EDT [facility] Blood 10/07/2024 6:37 PM EDT 10/07/2024 7:25 PM EDT Gerri Peterson MD BLOOD BANK TEST ORDERABLES Denisse l Result [facility] [address] [place] [address], [facility] * X-ray Mandible minimum 4-views [...] EXAM: US ABDOMEN COMPLETE EXAM: US DUPLEX [id number] COMPLETE INDICATION: elevated bilirubin COMPARISON: Ultrasound and [...] EXAM: US ABDOMEN COMPLETE EXAM: US DUPLEX [id number] COMPLETE INDICATION: elevated bilirubin COMPARISON: Ultrasound and [...] 4:26 PM EDT us Bisi Hernandez DO [facility] US ORDERABLES Final Result * US Duplex [id number] Comp (10/07/2024 3:48 PM EDT) Anatomical Region [...] EXAM: US ABDOMEN COMPLETE EXAM: US DUPLEX [id number] COMPLETE INDICATION: elevated bilirubin COMPARISON: Ultrasound and [...] EXAM: US ABDOMEN COMPLETE EXAM: US DUPLEX [id number] COMPLETE INDICATION: elevated bilirubin COMPARISON: Ultrasound and [...] (ABNORMAL) Protime-INR (10/07/2024 6:00 AM EDT) Pathologist [facility] Protime 26.9(H) 12.1 - 15.1 seconds 10/07/2024 [...] MD, PhD LAB BLOOD ORDERABLES Final Result [facility] [facility] [address] * (ABNORMAL) Hepatic Function Panel (10/07/2024 6:00 AM EDT) Total Bilirubin 9.7(H) 0.0 - 1.5 mg/dL 10/07/2024 7:10 AM EDT [facility] Bilirubin, Direct 5.21(H) 0.00 - 0.40 mg/dL 10/07/2024 7:10 AM EDT [facility] AST 39 13 - 39 U/L 10/07/2024 7:10 AM EDT [facility] ALT 18 7 - 52 U/L 10/07/2024 7:10 AM EDT [facility] Alkaline Phosphatase 98 36 - 125 U/L 10/07/2024 7:10 AM EDT [facility] Total Protein 4.8(L) 6.4 - 8.9 g/dL 10/07/2024 7:10 AM EDT [facility] Albumin 3.6 3.5 - 5.7 g/dL 10/07/2024 7:10 AM EDT [facility] Bilirubin, Indirect 4.49(H) 0.00 - 1.10 mg/dL 10/07/2024 7:10 AM EDT [facility] Plasma 10/07/2024 6:00 AM EDT 10/07/2024 6:39 AM EDT Eileen Schroeder MD, PhD LAB BLOOD ORDERABLES Final Result Performing Organization Address City/[facility]/ZIP Co de Phone Number [facility] [address] * Magnesium (10/07/2024 6:00 AM EDT) Magnesium 1.7 1.5 - 2.5 mg/dL 10/07/2024 7:10 AM EDT [facility] Plasma 10/07/2024 6:00 AM EDT 10/07/2024 6:39 AM EDT Eileen Schroeder MD, PhD LAB BLOOD ORDERABLES Final Result Performing Organization Address [facility] Co de Phone Number [facility] [address] * (ABNORMAL) Renal Function Panel w/EGFR (10/07/2024 6:00 AM EDT) Sodium 132(L) 133 - 146 mmol/L 10/07/2024 7:10 AM EDT [facility] Potassium 3.9 3.5 - 5.3 mmol/L 10/07/2024 7:10 AM EDT [facility] Chloride 103 98 - 110 mmol/L 10/07/2024 7:10 AM EDT [facility] CO2 19(L) 21 - 33 mmol/L 10/07/2024 7:10 AM EDT [facility] Anion Gap 10 3 - 16 mmol/L 10/07/2024 7:10 AM EDT [facility] BUN 64(H) 7 - 25 mg/dL 10/07/2024 7:10 AM EDT [facility] Creatinine 3.38(H) 0.60 - 1.30 mg/dL 10/07/2024 7:10 AM EDT [facility] Glucose 111(H) 70 - 100 mg/dL 10/07/2024 7:10 AM EDT [facility] Calcium 9.1 8.6 - 10.3 mg/dL 10/07/2024 7:10 AM EDT [facility] Phosphorus 4.2 2.1 - 4.7 mg/dL 10/07/2024 7:10 AM EDT [facility] Albumin 3.6 3.5 - 5.7 g/dL 10/07/2024 7:10 AM EDT [facility] Osmolality, Calculated 293 278 - 305 mOsm/kg 10/07/2024 7:10 AM EDT [facility] EGFR 22 10/07/2024 7:10 AM EDT [facility] Comment:As of 2021, the [...] MD, PhD LAB BLOOD ORDERABLES Final Result [facility] [address] [place] [address], [facility] * (ABNORMAL) CBC (10/07/2024 6:00 AM EDT) WBC 3.3(L) 3.8 - 10.8 10E3/uL 10/07/2024 7:55 AM EDT [facility] RBC 2.06(L) 4.20 - 5.80 10E6/uL 10/07/2024 7:55 AM EDT [facility] Hemoglobin 7.4(L) 13.2 - 17.1 g/dL 10/07/2024 7:55 AM EDT [facility] Hematocrit 21.5(L) 38.5 - 50.0 % 10/07/2024 7:55 AM EDT [facility] MCV 104.1(H) 80.0 - 100.0 fL 10/07/2024 7:55 AM EDT [facility] MCH 35.8(H) 27.0 - 33.0 pg 10/07/2024 7:55 AM EDT [facility] MCHC 34.4 32.0 - 36.0 g/dL 10/07/2024 7:55 AM EDT [facility] RDW 17.5(H) 11.0 - 15.0 % 10/07/2024 7:55 AM EDT [facility] Platelets 35(L) 140 - 400 10E3/uL 10/07/2024 7:55 AM EDT [facility] Comment: Specimen checked for clots. None detected. Slide Reviewed for PLT Clumps. None Seen. _Platelet Morphology Normal _Platelets Appear Decreased Platelet Estimate Decreased 10/07/2024 7:55 AM EDT [facility] MPV 8.0 7.5 - 11.5 fL 10/07/2024 7:55 AM EDT [facility] Whole Blood 10/07/2024 6:00 AM EDT 10/07/2024 6:40 AM EDT Narrative [facility] - 10/07/2024 7:55 AM EDT Peripheral blood smear was scanned per review criteria approved by the laboratory esthetician and manager [facility]. us Eileen Schroeder MD, PhD LAB BLOOD ORDERABLES Final Result [facility] [address] [place] [address], [facility] * AFP Tumor Marker (10/07/2024 6:00 AM EDT) AFP-Tumor Marker 2.0 0.0 - 9.0 ng/mL 10/07/2024 7:11 AM EDT [facility] Serum 10/07/2024 6:00 AM EDT 10/07/2024 6:39 AM EDT Narrative [facility] - 10/07/2024 7:11 AM EDT The testing method for AFP is a chemiluminescent immunoassay manufactured by [employer] Concentrations of AFP obtained by different assay methods or kits may vary and cannot be used interchangeably. AFP results cannot be interpreted as absolute evidence of the presence or absence of malignant disease. Shila Rivera MD LAB BLOOD ORDERABLES Final Resul t Performing Organization Address City/[facility]/ZIP Co de Phone Number [facility] [address] [facility] * Vancomycin, random (10/07/2024 6:00 AM EDT) Vancomycin Random 21.1 ug/mL 10/07/2024 7:08 AM EDT [facility] Comment:Reference range not established for this test. Plasma 10/07/2024 6:00 AM EDT 10/07/2024 6:39 AM EDT Kiet Gardiner PharmD LAB BLOOD ORDERABLES Final Re sult Performing Organization Address [facility] Co de Phone Number [facility] [address] * Osmolality (10/06/2024 2:50 PM EDT) Osmolality, Measured 304 278 - 305 mOsm/kg 10/06/2024 3:49 PM EDT [facility] Serum 10/06/2024 2:50 PM EDT 10/06/2024 2:56 PM EDT Chari Vanegas MD LAB BLOOD ORDERABLES Final Resul t Performing Organization Address [facility]/ZIP Co de Phone Number [facility] [address] * CT Head WO contrast (10/06/2024 [...] Ur <15 mmol/L 10/06/2024 1:56 PM EDT [facility] Comment:Reference range not established for this test. Urine 10/06/2024 1:25 PM EDT 10/06/2024 1:32 PM EDT us Chari Vanegas MD URINE ORDERABLES Final Result Performing Organization Address City/[facility]/ZIP Co de Phone Number [facility] [address] [facility] * Potassium, urine, random (10/06/2024 1:25 PM EDT) Potassium Urine Random 50.0 mmol/L 10/06/2024 1:56 PM EDT [facility] Comment:Reference range not established for this test. Urine 10/06/2024 1:25 PM EDT 10/06/2024 1:32 PM EDT us Chari Vanegas MD URINE ORDERABLES Final Result Performing Organization Address [facility] Co de Phone Number [facility] [address] * Sodium, urine, random (10/06/2024 1:25 PM EDT) Sodium, Ur <10 mmol/L 10/06/2024 1:56 PM EDT [facility] Comment:Reference range not established for this test. Urine 10/06/2024 1:25 PM EDT 10/06/2024 1:32 PM EDT us Chari Vanegas MD URINE ORDERABLES Final Result Performing Organization Address City/[facility] Co de Phone Number [facility] [address] * Creatinine, Urine, Random (10/06/2024 1:25 PM EDT) Creatinine, Urine 87.40 mg/dL 10/06/2024 1:56 PM EDT [facility] Comment:Reference range not established for this test. Urine 10/06/2024 1:25 PM EDT 10/06/2024 1:32 PM EDT us Chari Vanegas MD URINE ORDERABLES Final Result Performing Organization Address City/[facility]/ZIP Co de Phone Number [facility] [address] [facility] * Osmolality, Urine (10/06/2024 1:25 PM EDT) Osmolality, Ur 386 50 - 1,200 mOsm/kg 10/06/2024 1:55 PM EDT [facility] Urine 10/06/2024 1:25 PM EDT 10/06/2024 1:32 PM EDT us Chari Vanegas MD URINE ORDERABLES Final Result Performing Organization Address [facility] de Phone Number [facility] [address] [facility] * Urine Drug Confirmation (10/06/2024 11:51 AM EDT) BARBITURATES NOT PRESENT 10/09/2024 3:23 PM EDT [facility] Comment:Results were recheck ed. BENZODIAZEPINES PRESENT 3:23 PM EDT [facility] Nordiazepam 3 ng/mL 10/09/2024 3:23 PM EDT [facility] Comment:Results were recheck ed. Temazepam 8 ng/mL 10/09/2024 3:23 PM EDT [facility] Comment:Results were recheck ed. CANNABINOIDS NOT PRESENT 10/09/2024 3:23 PM EDT [facility] MECHANICAL CAR CHECKER STIMULANTS NOT PRESENT 3:23 PM EDT [facility] OPIOID ANALGESICS PRESENT 025 3:23 PM EDT [facility] Oxycodone 329 ng/mL 10/09/2024 3:23 PM EDT [facility] Oxymorphone 61 ng/mL 10/09/2024 3:23 PM EDT [facility] Tramadol >1000 ng/mL 10/09/2024 3:23 PM EDT [facility] OPIOID ANTAGONISTS NOT PRESENT 10/09 3:23 PM EDT [facility] SEDATIVES/MUSCLE RELAXANTS NOT PRESENT 10/09/2024 3:23 PM EDT [facility] TRICYCLIC ANTIDEPRESSANTS NOT PRESENT 10/09/2024 3:23 PM EDT [facility] Urine 10/06/2024 11:5 1 AM EDT 10/06/2024 1:13 PM EDT us Bisi Hernandez DO URINE ORDERABLES Final Result [facility] [address] [place] [address], [facility] * (ABNORMAL) Urine Drug Screen Reflex to Confirmation (10/06/2024 11:51 AM EDT) Amphetamine, 500 ng/mL Cutoff Negative Negative 10/06/2024 1:13 PM EDT [facility] Barbiturates UR, 300 ng/mL Cutoff Negative Negative 10/06/2024 1:13 PM EDT [facility] Buprenorphine, 5 ng/mL Cutoff Negative Negative 10/06/2024 1:13 PM EDT [facility] Benzodiazepines UR, 300 ng/mL Cutoff Negative Negative 10/06/2024 1:13 PM EDT [facility] Cocaine UR, 300 ng/mL Cutoff Negative Negative 10/06/2024 1:13 PM EDT [facility] Methadone, UR, 300 ng/mL Cutoff Negative Negative 10/06/2024 1:13 PM EDT [facility] Opiates UR, 300 ng/mL Cutoff Negative Negative 10/06/2024 1:13 PM EDT [facility] Oxycodone, 100 ng/mL Cutoff Presumptive Positive(A) Negative 10/06/2024 1:13 PM EDT [facility] Tricyclic Antidepressants, 300 ng/mL Cutoff Negative Negative 10/06/2024 1:13 PM EDT [facility] Comment:This test has been d eveloped and its performance characteristics determined by [facility] which is certified under the [...] Cutoff Negative Negative 10/06/2024 1:13 PM EDT [facility] Comment:This is a screening method only and may be associated with false positive and/or false negative results. Results are not definitive without additional confirmatory testing by mass spectrometry. Fentanyl, 2 ng/mL Cutoff Negative Negative 10/06/2024 1:13 PM EDT [facility] Comment:This test has been d eveloped and its performance characteristics determined by [facility] which is certified under the [...] AM EDT 10/06/2024 11:58 AM EDT Narrative [facility] - 10/06/2024 1:13 PM EDT CONFIRMATION TO FOLLOW Bisi Akella DO URINE ORDERABLES Final Result [facility] [address] [place] [address] * Chloride, urine, random (10/06/2024 11:51 AM EDT) Chloride, Ur <15 mmol/L 10/06/2024 1:13 PM EDT [facility] Comment:Reference range not established for this test. Urine 10/06/2024 11:5 1 AM EDT 10/06/2024 11:57 AM EDT [employer]ella DO URINE ORDERABLES Final Result Performing Organization Address City/[facility]/ZIP Co de Phone Number [facility] [address] * Potassium, urine, random (10/06/2024 11:51 AM EDT) Potassium Urine Random 49.0 mmol/L 10/06/2024 1:13 PM EDT [facility] Comment:Reference range not established for this test. Urine 10/06/2024 11:5 1 AM EDT 10/06/2024 11:57 AM EDT [employer] maría DO URINE ORDERABLES Final Result Performing Organization Address City/[facility]/ZIP Co de Phone Number [facility] [address] [facility] * Sodium, urine, random (10/06/2024 11:51 AM EDT) Sodium, Ur <10 mmol/L 10/06/2024 1:13 PM EDT [facility] Comment:Reference range not established for this test. Urine 10/06/2024 11:5 1 AM EDT 10/06/2024 11:57 AM EDT [employer] maría URINE ORDERABLES Final Result Performing Organization Address [facility] Co de Phone Number [facility] [address] [facility] * Urinalysis w/Rfl to Microscopic (10/06/2024 11:51 AM EDT) Color, UA Yellow Yellow,Straw 10/06/2024 12:25 PM EDT [facility] Clarity, UA Clear Clear 10/06/2024 12:25 PM EDT [facility] Specific [place], UA 1.014 1.005 - 1.035 10/06/2024 12:25 PM EDT [facility] pH, UA 6.0 5.0 - 8.0 10/06/2024 12:25 PM EDT [facility] Protein, UA Negative Negative mg/dL 10/06/2024 12:25 PM EDT [facility] Glucose, UA Negative Negative mg/dL 10/06/2024 12:25 PM EDT [facility] Ketones, UA Negative Negative mg/dL 10/06/2024 12:25 PM EDT [facility] Bilirubin, UA Negative Negative 10/06/2024 12:25 PM EDT [facility] Blood, UA Negative Negative 10/06/2024 12:25 PM EDT [facility] Nitrite, UA Negative Negative 10/06/2024 12:25 PM EDT [facility] Urobilinogen, UA <2.0 0.2 - 1.9 mg/dL 10/06/2024 12:25 PM EDT [facility] Leukocyte Esterase, UA Negative Negative 10/06/2024 12:25 PM EDT [facility] Urine 10/06/2024 11:5 1 AM EDT 10/06/2024 11:57 AM EDT Narrative [facility] - 10/06/2024 12:25 PM EDT Microscopic testing is not performed when the dipstick is negative for blood, leukocyte, protein and nitrite. us Bisi Hernandez DO URINE ORDERABLES Final Result [facility] [address] * Lactic Acid, STAT (10/06/2024 7:38 AM EDT) Lactate 0.9 0.5 - 2.2 mmol/L 10/06/2024 8:05 AM EDT [facility] Plasma 10/06/2024 7:38 AM EDT 10/06/2024 7:42 AM EDT us Chari Vanegas MD LAB BLOOD ORDERABLES Final Resul t [facility] [address] * (ABNORMAL) CBC, STAT (10/06/2024 7:37 AM EDT) WBC 5.6 3.8 - 10.8 10E3/uL 10/06/2024 8:22 AM EDT [facility] RBC 2.50(L) 4.20 - 5.80 10E6/uL 10/06/2024 8:22 AM EDT [facility] Hemoglobin 9.0(L) 13.2 - 17.1 g/dL 10/06/2024 8:22 AM EDT [facility] Hematocrit 25.3(L) 38.5 - 50.0 % 10/06/2024 8:22 AM EDT [facility] MCV 101.2(H) 80.0 - 100.0 fL 10/06/2024 8:22 AM EDT [facility] MCH 36.0(H) 27.0 - 33.0 pg 10/06/2024 8:22 AM EDT [facility] MCHC 35.6 32.0 - 36.0 g/dL 10/06/2024 8:22 AM EDT [facility] RDW 17.7(H) 11.0 - 15.0 % 10/06/2024 8:22 AM EDT [facility] Platelets 52(L) 140 - 400 10E3/uL 10/06/2024 8:22 AM EDT [facility] Comment: Specimen checked for clots. None detected. Slide Reviewed for PLT Clumps. None Seen. MPV 8.2 7.5 - 11.5 fL 10/06/2024 8:22 AM EDT [facility] Whole Blood 10/06/2024 7:37 AM EDT 10/06/2024 7:43 AM EDT us Chari Vanegas MD LAB BLOOD ORDERABLES Final Resul t [facility] [address] [id number] * (ABNORMAL) Comprehensive Metabolic Panel (10/06/2024 7:37 AM EDT) Sodium 129(L) 133 - 146 mmol/L 10/06/2024 8:16 AM EDT [facility] Potassium 4.4 3.5 - 5.3 mmol/L 10/06/2024 8:16 AM EDT [facility] Chloride 100 98 - 110 mmol/L 10/06/2024 8:16 AM EDT [facility] CO2 18(L) 21 - 33 mmol/L 10/06/2024 8:16 AM EDT [facility] Anion Gap 11 3 - 16 mmol/L 10/06/2024 8:16 AM EDT [facility] BUN 62(H) 7 - 25 mg/dL 10/06/2024 8:16 AM EDT [facility] Creatinine 3.40(H) 0.60 - 1.30 mg/dL 10/06/2024 8:16 AM EDT [facility] Glucose 98 70 - 100 mg/dL 10/06/2024 8:16 AM EDT [facility] Calcium 9.5 8.6 - 10.3 mg/dL 10/06/2024 8:16 AM EDT [facility] Total Bilirubin 14.3(H) 0.0 - 1.5 mg/dL 10/06/2024 8:16 AM EDT [facility] AST 57(H) 13 - 39 U/L 10/06/2024 8:16 AM EDT [facility] ALT 29 7 - 52 U/L 10/06/2024 8:16 AM EDT [facility] Alkaline Phosphatase 158(H) 36 - 125 U/L 10/06/2024 8:16 AM EDT [facility] Total Protein 5.6(L) 6.4 - 8.9 g/dL 10/06/2024 8:16 AM EDT [facility] Albumin 3.6 3.5 - 5.7 g/dL 10/06/2024 8:16 AM EDT [facility] Osmolality, Calculated 286 278 - 305 mOsm/kg 10/06/2024 8:16 AM EDT [facility] EGFR 22 10/06/2024 8:16 AM EDT [facility] Comment:As of 2021, the [...] MD LAB BLOOD ORDERABLES Final Resul t [facility] [address] [place] [address], [facility] * (ABNORMAL) Venous Blood Gas, Line/Syringe, STAT (10/06/2024 7:37 AM EDT) PH-Line Draw 7.27(L) 7.32 - 7.42 10/06/2024 7:46 AM EDT [facility] PCO2-Line Draw 36(L) 41 - 51 mm Hg 10/06/2024 7:46 AM EDT [facility] PO2-Line Draw 44(H) 25 - 40 mm Hg 10/06/2024 7:46 AM EDT [facility] HCO3-Line Draw 17(L) 24 - 28 mmol/L 10/06/2024 7:46 AM EDT [facility] CO2 Content-Line Draw 18(L) 25 - 29 mmol/L 10/06/2024 7:46 AM EDT [facility] Base Excess-Line Draw -9.6(L) -2.0 - 3.0 mmol/L 10/06/2024 7:46 AM EDT [facility] %HBO2-Line Draw 69.8 40.0 - 70.0 % 10/06/2024 7:46 AM EDT [facility] Carboxyhgb-Ludivina e Draw 0.7 % 10/06/2024 7:46 AM EDT [facility] Comment: CARBOXYHEMOGLOBIN (CO) REFERENCE RANGES: Non-Smokers: <2 % Smokers: <8 % TOXIC: >20 % Methemoglobin- Line Draw 0.3 0.0 - 1.5 % 10/06/2024 7:46 AM EDT [facility] Reduced Hemoglobin-Ludivina e Draw 29.2(H) 0.0 - 5.0 % 10/06/2024 7:46 AM EDT [facility] Venous, Line Draw 10/06/2024 7:37 AM EDT 10/06/2024 7:43 AM EDT Chari Vanegas MD LAB BLOOD ORDERABLES Final Resul t [facility] [address] [place] [address], [facility] * (ABNORMAL) Venous Blood Gas, Line/Syringe, STAT (10/06/2024 4:03 AM EDT) PH-Line Draw 7.21(L) 7.32 - 7.42 10/06/2024 4:16 AM EDT [facility] PCO2-Line Draw 41 41 - 51 mm Hg 10/06/2024 4:16 AM EDT [facility] PO2-Line Draw 32 25 - 40 mm Hg 10/06/2024 4:16 AM EDT [facility] HCO3-Line Draw 16(L) 24 - 28 mmol/L 10/06/2024 4:16 AM EDT [facility] CO2 Content-Line Draw 18(L) 25 - 29 mmol/L 10/06/2024 4:16 AM EDT [facility] Base Excess-Line Draw -10.8(L) -2.0 - 3.0 mmol/L 10/06/2024 4:16 AM EDT [facility] %HBO2-Line Draw 47.5 40.0 - 70.0 % 10/06/2024 4:16 AM EDT [facility] Carboxyhgb-Ludivina e Draw 2.0 % 10/06/2024 4:16 AM EDT [facility] Comment: CARBOXYHEMOGLOBIN (CO) REFERENCE RANGES: Non-Smokers: <2 % Smokers: <8 % TOXIC: >20 % Methemoglobin- Line Draw 0.7 0.0 - 1.5 % 10/06/2024 4:16 AM EDT [facility] Reduced Hemoglobin-Ludivina e Draw 49.8(H) 0.0 - 5.0 % 10/06/2024 4:16 AM EDT [facility] Venous, Line Draw 10/06/2024 4:03 AM EDT 10/06/2024 4:12 AM EDT [facility] LAB BLOOD ORDERABLES Final Resul t Performing Organization Address [facility] de Phone Number [facility] [address] * (ABNORMAL) Protime-INR (10/06/2024 4:01 AM EDT) Protime 21.3(H) 12.1 - 15.1 seconds 10/06/2024 4:40 AM EDT [facility] INR 1.8(H) 0.9 - 1.1 10/06/2024 4:40 AM EDT [facility] Comment: RECOMMENDED THERAPEUTIC RANGES USING INR : Stable oral anticoagulant therapy: 2.0 - 3.0 Mechanical prosthetic heart valve: 2.5 - 3.5 Recurrent acute myocardial infarction: 2.5 - 3.5 Plasma 10/06/2024 4:01 AM EDT 10/06/2024 4:11 AM EDT [facility] BLOOD ORDERABLES Final Resul t Performing Organization Address [facility] de Phone Number [facility] [address] [facility] * (ABNORMAL) Hepatic Function Panel, AM (10/06/2024 4:01 AM EDT) Total Bilirubin 14.7(H) 0.0 - 1.5 mg/dL 10/06/2024 4:57 AM EDT [facility] Bilirubin, Direct 7.08(H) 0.00 - 0.40 mg/dL 10/06/2024 4:57 AM EDT [facility] AST 60(H) 13 - 39 U/L 10/06/2024 4:57 AM EDT [facility] ALT 31 7 - 52 U/L 10/06/2024 4:57 AM EDT [facility] Alkaline Phosphatase 162(H) 36 - 125 U/L 10/06/2024 4:57 AM EDT [facility] Total Protein 5.3(L) 6.4 - 8.9 g/dL 10/06/2024 4:57 AM EDT [facility] Albumin 3.4(L) 3.5 - 5.7 g/dL 10/06/2024 4:57 AM EDT [facility] Bilirubin, Indirect 7.62(H) 0.00 - 1.10 mg/dL 10/06/2024 4:57 AM EDT [facility] Plasma 10/06/2024 4:01 AM EDT 10/06/2024 4:22 AM EDT [facility] BLOOD ORDERABLES Final Resul t [facility] [address] [facility]. [address] * Magnesium (10/06/2024 4:01 AM EDT) Magnesium 1.8 1.5 - 2.5 mg/dL 10/06/2024 4:57 AM EDT [facility] Plasma 10/06/2024 4:01 AM EDT 10/06/2024 4:22 AM EDT [facility] BLOOD ORDERABLES Final Resul t Performing Organization Address City/[facility]/ZIP Co de Phone Number [facility] [address] * (ABNORMAL) Renal Function Panel w/EGFR (10/06/2024 4:01 AM EDT) Sodium 129(L) 133 - 146 mmol/L 10/06/2024 4:57 AM EDT [facility] Potassium 4.7 3.5 - 5.3 mmol/L 10/06/2024 4:57 AM EDT [facility] Chloride 100 98 - 110 mmol/L 10/06/2024 4:57 AM EDT [facility] CO2 16(L) 21 - 33 mmol/L 10/06/2024 4:57 AM EDT [facility] Anion Gap 13 3 - 16 mmol/L 10/06/2024 4:57 AM EDT [facility] BUN 61(H) 7 - 25 mg/dL 10/06/2024 4:57 AM EDT [facility] Creatinine 3.49(H) 0.60 - 1.30 mg/dL 10/06/2024 4:57 AM EDT [facility] Glucose 104(H) 70 - 100 mg/dL 10/06/2024 4:57 AM EDT [facility] Calcium 9.2 8.6 - 10.3 mg/dL 10/06/2024 4:57 AM EDT [facility] Phosphorus 5.3(H) 2.1 - 4.7 mg/dL 10/06/2024 4:57 AM EDT [facility] Albumin 3.4(L) 3.5 - 5.7 g/dL 10/06/2024 4:57 AM EDT [facility] Osmolality, Calculated 286 278 - 305 mOsm/kg 10/06/2024 4:57 AM EDT [facility] EGFR 22 10/06/2024 4:57 AM EDT [facility] Comment:As of 2021, the [...] DO LAB BLOOD ORDERABLES Final Resul t [facility] [address] * (ABNORMAL) CBC (10/06/2024 4:01 AM EDT) WBC 7.6 3.8 - 10.8 10E3/uL 10/06/2024 5:16 AM EDT [facility] RBC 2.77(L) 4.20 - 5.80 10E6/uL 10/06/2024 5:16 AM EDT [facility] Hemoglobin 10.1(L) 13.2 - 17.1 g/dL 10/06/2024 5:16 AM EDT [facility] Hematocrit 28.4(L) 38.5 - 50.0 % 10/06/2024 5:16 AM EDT [facility] MCV 102.4(H) 80.0 - 100.0 fL 10/06/2024 5:16 AM EDT [facility] MCH 36.4(H) 27.0 - 33.0 pg 10/06/2024 5:16 AM EDT [facility] MCHC 35.5 32.0 - 36.0 g/dL 10/06/2024 5:16 AM EDT [facility] RDW 18.0(H) 11.0 - 15.0 % 10/06/2024 5:16 AM EDT [facility] Platelets 53(L) 140 - 400 10E3/uL 10/06/2024 5:16 AM EDT [facility] Comment:Specimen checked for clots. None detected. MPV 8.4 7.5 - 11.5 fL 10/06/2024 5:16 AM EDT [facility] Whole Blood 10/06/2024 4:01 AM EDT 10/06/2024 4:11 AM EDT us Bisi Hernandez DO LAB BLOOD ORDERABLES Final Resul t [facility] [address] * Hepatitis C Antibody (10/06/2024 4:01 AM EDT) HCV Ab Nonreactive Nonreactive 10/06/2024 5:12 AM EDT [facility] Comment:Health Department no tified in accordance with reportable infectious disease guidelines. Serum 10/06/2024 4:01 AM EDT 10/06/2024 4:11 AM EDT [facility] - 10/06/2024 5:12 AM EDT Antibodies to HCV not detected; does not exclude the possibility of exposure to HCV. [facility] LAB BLOOD ORDERABLES Final Resul t Performing Organization Address [facility] Co de Phone Number [facility] [address] [place] [address]. [address] * (ABNORMAL) Hepatitis B Surface Antibody, Quantitati (10/06/2024 4:01 AM EDT) Hep B S Ab Reactive( A) Nonreactive 10/06/2024 5:16 AM EDT [facility] HBSAB NUMBER 11.50(H) 0.00 - 7.99 mIU/mL 10/06/2024 5:16 AM EDT [facility] Serum 10/06/2024 4:01 AM EDT 10/06/2024 4:11 AM EDT [facility] - 10/06/2024 5:16 AM EDT Individual is considered immune to HBV infection. [facility] LAB BLOOD ORDERABLES Final Resul t Performing Organization Address [facility] de Phone Number [facility] [address] [facility]. [address] * Hepatitis B surface antigen (10/06/2024 4:01 AM EDT) Hep B Surface Ag Nonreactive Nonreactive 10/06/2024 5:07 AM EDT [facility] Comment:Health Department no tified in accordance with reportable infectious disease guidelines. Serum 10/06/2024 4:01 AM EDT 10/06/2024 4:11 AM EDT [facility] - 10/06/2024 5:07 AM EDT Specimen is considered negative for HBsAg. [facility] LAB BLOOD ORDERABLES Final Resul t Performing Organization Address City/[facility]/ZIP Co de Phone Number [facility] [address] * Hepatitis A Antibody Total (10/06/2024 4:01 AM EDT) Anti-HAV Total (IgG + IgM) Nonreactive 10/06/2024 5:08 AM EDT [facility] Serum 10/06/2024 4:01 AM EDT 10/06/2024 4:11 AM EDT [facility] - 10/06/2024 5:08 AM EDT HAV antibodies not detected [facility] LAB BLOOD ORDERABLES Final Resul t Performing Organization Address [facility] Co de Phone Number [facility] [address] [facility]. [address] * Hepatitis A IgM (10/06/2024 4:01 AM EDT) Hep A IgM Nonreactive Nonreactive 10/06/2024 5:02 AM EDT [facility] Serum 10/06/2024 4:01 AM EDT 10/06/2024 4:11 AM EDT [facility] - 10/06/2024 5:02 AM EDT IgM anti-HAV not detected. Does not exclude the possibility of exposure to or infection with HAV. Levels of IgM anti-HAV may be below the cut-off in early infection. [facility] LAB BLOOD ORDERABLES Final Resul t Performing Organization Address City/[facility]/ZIP Co de Phone Number [facility] [address] * (ABNORMAL) Salicylate Level (10/06/2024 4:01 AM EDT) Salicylate Lvl <3(L) 10 - 30 mg/dL 10/06/2024 4:58 AM EDT [facility] Serum 10/06/2024 4:01 AM EDT 10/06/2024 4:22 AM EDT [facility] LAB BLOOD ORDERABLES Final Resul t Performing Organization Address [facility] de Phone Number [facility] [address] [facility]. [address] * AFP Tumor Marker (10/06/2024 4:01 AM EDT) [facility] AFP-Tumor Marker 2.6 0.0 - 9.0 ng/mL 10/06/2024 4:55 AM EDT [facility] Serum 10/06/2024 4:01 AM EDT 10/06/2024 4:22 AM EDT Narrative [facility] - 10/06/2024 4:55 AM EDT The testing method for AFP is a chemiluminescent immunoassay manufactured by [employer] Concentrations of AFP obtained by different assay methods or kits may vary and cannot be used interchangeably. AFP results cannot be interpreted as absolute evidence of the presence or absence of malignant disease. [facility] LAB BLOOD ORDERABLES Final Resul t Performing Organization Address [facility] de Phone Number [facility] [address] [facility]. [address] * Upper Respiratory Viral/Bacterial Panel-QA SPECIALIST Only (10/06/2024 3:12 AM EDT) [facility] Adenovirus Not Detected Not Detected 10/06/2024 11:38 PM EDT [facility] Coronavirus (229E,HKU1,NL63,OC 43) Not Detected Not Detected 10/06/2024 11:38 PM EDT [facility] SARS-CoV-2 Not Detected Not Detected 10/06/2024 11:38 PM EDT [facility] Human Metapneumovirus Not Detected Not Detected 10/06/2024 11:38 PM EDT [facility] Human Rhinovirus/Enterov irus Not Detected Not Detected 10/06/2024 11:38 PM EDT [facility] Influenza A Not Detected Not Detected 10/06/2024 11:38 PM EDT [facility] Influenza A H1 Not Detected Not Detected 10/06/2024 11:38 PM EDT [facility] Influenza A/H1-2009 Not Detected Not Detected 10/06/2024 11:38 PM EDT [facility] Influenza A H3 Not Detected Not Detected 10/06/2024 11:38 PM EDT [facility] Influenza B Not Detected Not Detected 10/06/2024 11:38 PM EDT [facility] Parainfluenza 1 Not Detected Not Detected 10/06/2024 11:38 PM EDT [facility] Parainfluenza 2 Not Detected Not Detected 10/06/2024 11:38 PM EDT [facility] Parainfluenza 3 Not Detected Not Detected 10/06/2024 11:38 PM EDT [facility] Parainfluenza 4 Not Detected Not Detected 10/06/2024 11:38 PM EDT [facility] Resp. Syncycial Virus A Not Detected Not Detected 10/06/2024 11:38 PM EDT [facility] Resp. Syncycial Virus B Not Detected Not Detected 10/06/2024 11:38 PM EDT [facility] Chlamydia pneumoniae Not Detected Not Detected 10/06/2024 11:38 PM EDT [facility] Mycoplasma pneumoniae Not Detected Not Detected 10/06/2024 11:38 PM EDT [facility] Comment: The Respiratory Viral-Bacterial [...] to the [facility] in accordance with state requirements. For a fact sheet for healthcare providers, see https://www.fda.gov/media/652629/download. For a fact sheet for patients, see https://www.fda.gov/media/548333/download. Nasopharyngeal Swab NASOPHARYNGEAL SWAB / Unknown 10/06/2024 3:12 AM EDT 10/06/2024 5:41 PM EDT Comment:QA SPECIALIST us Bisi Hernandez DO BODY FLUIDS AND STOOLS ORDERABLE S Final Result [facility] [address] [place] [address], [facility] * X-ray Portable Chest (10/06/2024 [...] 10/06/2024 2:33 AM EDT Bisi Hernandez DO [facility] DIAGNOSTIC IMAGING ORDERABLE S Final Result * Phosphatidylethanol Confirmation, B (10/06/2024 1:04 AM EDT) PETH 16:0/18.1 (POPETH) <10 Cutoff: 10 ng/mL 10/10/2024 3:11 AM EDT [facility] Comment: Phosphatidylethanol (PEth) homologues result interpretation [...] Cutoff: 10 ng/mL 10/10/2024 3:11 AM EDT [facility] Comment: PEth 16:0/18:2 (PLPEth) Reference ranges are not well established PEth Interpretation Negative. 10/10 3:11 AM EDT [facility] Comment: ADDITIONAL INFORMATION This report is intended for use in clinical monitoring and management of patients. It is not intended for use in employment-related testing. This test was developed and its performance characteristics determined by [facility] in a manner consistent with CLIA requirements. This test has not been cleared or approved by the U.S. Food and Drug Administration. Test Performed by: [facility] - [address] [address] Bsa Officer: Kathy Ortiz Ph.D.; CLIA# [id number] Whole Blood 10/06/2024 1:04 AM EDT 10/10/2024 3:11 AM EDT [facility] LAB BLOOD ORDERABLES Final Resul t [facility] [address] [place] [address]. [address] * (ABNORMAL) Acetaminophen Level (10/06/2024 1:04 AM EDT) Acetaminophen Level <10(L) 10 - 30 ug/mL 10/06/2024 2:08 AM EDT [facility] Serum 10/06/2024 1:04 AM EDT 10/06/2024 1:30 AM EDT [facility] LAB BLOOD ORDERABLES Final Resul t Performing Organization Address [facility]/ZIP Co de Phone Number [facility] [address] [place] [address]. [address] * Ethanol, Serum (10/06/2024 1:04 AM EDT) Ethanol <10 0 - 10 mg/dL 10/06/2024 2:08 AM EDT [facility] Serum 10/06/2024 1:04 AM EDT 10/06/2024 1:30 AM EDT [facility] BLOOD ORDERABLES Final Resul t Performing Organization Address City/[facility] Co de Phone Number [facility] [address] [place] [address]. [address] * #2 Blood culture-Peripheral site 2 (10/06/2024 1:04 AM EDT) Culture Result No Growth After 5 Days [facility] Blood BLOOD SPECIMEN / Unknown 10/06/2024 1:04 AM EDT 10/06/2024 4:57 AM EDT Narrative [facility] - 10/11/2024 5:05 AM EDT Suboptimal volume of blood received. Interpret results with caution. Bisi Hernandez DO MICROBIOLOGY - GENERAL ORDERABLE S Final Result [facility] [address] * #1 Blood culture-Peripheral site 1 (10/06/2024 1:04 AM EDT) Culture Result No Growth After 5 Days [facility] Blood BLOOD SPECIMEN / Unknown 10/06/2024 1:04 AM EDT 10/06/2024 4:57 AM EDT Narrative [facility] - 10/11/2024 5:01 AM EDT Suboptimal volume of blood received. Interpret results with caution. Bisi PLTechana maría MICROBIOLOGY - GENERAL ORDERABLE S Final Result [facility] [address] * Ammonia (10/06/2024 1:04 AM EDT) Ammonia 77 27 - 90 ug/dL 10/06/2024 2:00 AM EDT [facility] Plasma 10/06/2024 1:04 AM EDT 10/06/2024 1:30 AM EDT [facility] BLOOD ORDERABLES Final Resul t [facility] [address] * Thyroid Function Grant (10/06/2024 1:04 AM EDT) TSH 0.84 0.45 - 4.12 uIU/mL 10/06/2024 2:20 AM EDT [facility] Serum 10/06/2024 1:04 AM EDT 10/06/2024 1:39 AM EDT us BisiIceWEB DO LAB BLOOD ORDERABLES Final Resul t Performing Organization Address [facility] Co de Phone Number [facility] [address] * (ABNORMAL) Protime-INR (10/06/2024 1:04 AM EDT) Protime 22.8(H) 12.1 - 15.1 seconds 10/06/2024 1:48 AM EDT [facility] INR 1.9(H) 0.9 - 1.1 10/06/2024 1:48 AM EDT [facility] Comment: RECOMMENDED THERAPEUTIC RANGES USING INR : Stable oral anticoagulant therapy: 2.0 - 3.0 Mechanical prosthetic heart valve: 2.5 - 3.5 Recurrent acute myocardial infarction: 2.5 - 3.5 Plasma 10/06/2024 1:04 AM EDT 10/06/2024 1:30 AM EDT us [facility] LAB BLOOD ORDERABLES Final Resul t Performing Organization Address [facility] de Phone Number [facility] [address] * Lactic Acid, STAT (10/06/2024 1:04 AM EDT) Lactate 1.2 0.5 - 2.2 mmol/L 10/06/2024 1:59 AM EDT [facility] Plasma 10/06/2024 1:04 AM EDT 10/06/2024 1:30 AM EDT BisiIceWEB DO LAB BLOOD ORDERABLES Final Resul t Performing Organization Address [facility] Co de Phone Number [facility] [address] * (ABNORMAL) CBC, STAT (10/06/2024 1:04 AM EDT) WBC 7.9 3.8 - 10.8 10E3/uL 10/06/2024 2:36 AM EDT [facility] RBC 2.76(L) 4.20 - 5.80 10E6/uL 10/06/2024 2:36 AM EDT [facility] Hemoglobin 9.9(L) 13.2 - 17.1 g/dL 10/06/2024 2:36 AM EDT [facility] Hematocrit 28.0(L) 38.5 - 50.0 % 10/06/2024 2:36 AM EDT [facility] MCV 101.5(H) 80.0 - 100.0 fL 10/06/2024 2:36 AM EDT [facility] MCH 35.7(H) 27.0 - 33.0 pg 10/06/2024 2:36 AM EDT [facility] MCHC 35.2 32.0 - 36.0 g/dL 10/06/2024 2:36 AM EDT [facility] RDW 17.9(H) 11.0 - 15.0 % 10/06/2024 2:36 AM EDT [facility] Platelets 58(L) 140 - 400 10E3/uL 10/06/2024 2:36 AM EDT [facility] Comment: Specimen checked for clots. None detected. Slide Reviewed for PLT Clumps. None Seen. MPV 8.2 7.5 - 11.5 fL 10/06/2024 2:36 AM EDT [facility] Whole Blood 10/06/2024 1:04 AM EDT 10/06/2024 1:31 AM EDT us Bisi Hernandez DO LAB BLOOD ORDERABLES Final Resul t [facility] [address] [place] [address], [facility] * (ABNORMAL) Comprehensive Metabolic Panel (10/06/2024 1:04 AM EDT) Sodium 127(L) 133 - 146 mmol/L 10/06/2024 2:05 AM EDT [facility] Potassium 4.5 3.5 - 5.3 mmol/L 10/06/2024 2:05 AM [facility] Chloride 99 98 - 110 mmol/L 10/06/2024 2:05 AM [facility] CO2 18(L) 21 - 33 mmol/L 10/06/2024 2:05 AM [facility] Anion Gap 10 3 - 16 mmol/L 10/06/2024 2:05 AM [facility] BUN 59(H) 7 - 25 mg/dL 10/06/2024 2:05 AM [facility] Creatinine 3.54(H) 0.60 - 1.30 mg/dL 10/06/2024 2:05 AM [facility] Glucose 116(H) 70 - 100 mg/dL 10/06/2024 2:05 AM [facility] Calcium 9.0 8.6 - 10.3 mg/dL 10/06/2024 2:05 AM [facility] Total Bilirubin 14.8(H) 0.0 - 1.5 mg/dL 10/06/2024 2:05 AM [facility] AST 61(H) 13 - 39 U/L 10/06/2024 2:05 AM [facility] ALT 33 7 - 52 U/L 10/06/2024 2:05 AM [facility] Alkaline Phosphatase 174(H) 36 - 125 U/L 10/06/2024 2:05 AM [facility] Total Protein 5.2(L) 6.4 - 8.9 g/dL 10/06/2024 2:05 AM [facility] Albumin 3.3(L) 3.5 - 5.7 g/dL 10/06/2024 2:05 AM [facility] Osmolality, Calculated 282 278 - 305 mOsm/kg 10/06/2024 2:05 AM [facility] EGFR 21 10/06/2024 2:05 AM [facility] Comment:As of 2021, the estimated [...] DO LAB BLOOD ORDERABLES Final Resul t [facility] [address] documented in this encounter Visit Diagnoses [...] [id number] (See Alternative - Provider: Suzette Arciniega, ЛЮИЯ) oxyCODONE (ROXICODONE) immediate release tablet 5 mg(Linked [...] documented as of this encounter Care Teams Entrepreneurial Finance Professor Relationship Specialty Start Date End Date Enedina Mcguire NP [address] [place] [address] PCP - General Internal Medicine 10/05/24 documented as of this encounter
--- OUTSIDE RECORDS SUMMARY | 2024-10-10 12:01 | XMS_ITS | Encounter Summary ---
Author Organization [facility] Address [address] [place] [id number] Care Team Providers Care Optomechanical Engineer Name Role Phone Enedina Mcguire NP Primary Care Provider [phone] Source Comments This information has been disclosed [...] release of HIV test results or diagnoses. [id number] Reason for Visit * Auth/Cert (Routine) Specialty Diagnoses / Procedures Referred By Shane hernadez Referred To Contact General Internal Medicine Diagnoses [facility] [address] [place] [address] Phone: tel: Referral ID Status Reason Start Date Expiration Date Visits Re quested Visits Authorized [id number] 1 1 Encounter Details Date Type Department Care Team (Late st Contact Info) Description 10/10/2024 12:01 PM EDT Anesthesia Event [facility] ENDOSCOPY [address] [place] [address] Cady Bhat MD [address] [id number] Bob Leggett MD [address] [place] [facility] [address] [place] [address] Anesthesia Record Procedure Summary Procedure [...] Recorded In the past 12 months has [employer], or [employer] threatened to shut off services in your [...] in this encounter H&P Notes * Cady hBat MD - 10/10/2024 10:15 AM EDT [facility] DEPARTMENT OF ANESTHESIOLOGY PRE-PROCEDURAL [...] Resource Strain: Low Risk (07/09/2024) Received from [facility] Overall Financial Resource Strain [...] No Physical Activity: Unknown (07/14/2024) Received from [facility] Exercise Vital Sign Days of Exercise per Week: Patient unable to answer Minutes of Exercise per Session: Not on file Stress: Patient Unable To Answer (07/14/2024) Received from [facility] [employer] [place] [employer] - Occupational Stress Questionnaire Feeling of Stress : Patient unable to answer Social Connections: Patient Unable To Answer (07/14/2024) Received from [facility] Social Connection and Isolation Panel [NHANES] Frequency [...] in detail. Questions answered. Plan discussed with [facility] [employer] [facility]. [1] Allergies Allergen Reactions Adhesive Itching and Rash Tegaderm adhesive on Ivs, pt states its tolerable Duloxetine Other (See Comments) Became Manic documented in this encounter Plan of Treatment Upcoming Encounters Date Type Department Care Team (Late st Contact Info) Description 12/05/2024 8:01 AM EDT Hospital Encounter [facility] ENDOSCOPY [address] [place] [address] Chris Orosco MD [address] [place] [phone] 12/05/2024 8:01 AM EDT - 12/05/2024 8:31 AM EDT Surgery [facility] ENDOSCOPY [address] [place] [address] Chris Orosco MD [address] [place] [phone] EGD Scheduled Procedures Name Priority Associated Diagnoses [...] 10/09/24699 - 10/10/2465810/10/24699 - 10/11/24 0659 Shift [id number] [phone] 24 Hour Total 5590-9284 4487-4550 7686-6809 24 Hour Total INTAKE [address] 210 [...] documented as of this encounter Care Teams Optomechanical Engineer Relationship Specialty Start Date End Date Enedina Mcguire NP [address] [place] [address] PCP - General Internal Medicine 10/05/24 documented as of this encounter
--- OUTSIDE RECORDS SUMMARY | 2024-10-14 08:42 | XMS_ITS | Encounter Summary ---
[facility] Address [facility] [place] [address] Care Team Providers Care Viner Operator Name Role Phone Enedina Mcguire NP Primary Care Provider [phone] Source Comments This information has been disclosed [...] release of HIV test results or diagnoses. [id number] Health Reason for Visit * Auth/Cert (Routine) Specialty Diagnoses / Procedures Referred By Shane hernadez Referred To Contact General Internal Medicine Diagnoses [facility] [address] [place] [address] Phone: tel: Referral ID Status Reason Start Date Expiration Date Visits Re quested Visits Authorized [id number] 1 1 Encounter Details Date Type Department Care Team (Late st Contact Info) Description 10/14/2024 8:42 AM EDT - 10/14/2024 9:27 AM EDT Surgery [facility] Cardiac Community Sports Coordinator [address] [place] [address] Irving Matta MD [address] [facility] [place] [address] Left Heart Cath Surgery Details [...] the past 12 months has th e [employer] gas, oil, or [employer] threatened to shut off services in [...] Kandy Fuentes - 10/17/2024 10:29 AM EDT [facility] Care Management Discharge Summary Patient name: [...] Home post discharge: Not Applicable Kandy BAE [facility] [phone] * William Blount MD - 10/17/2024 8:50 AM EDT [facility] Inpatient Discharge Summary Patient: Julien Gilbert Age: 39 y.o. CSN: [id number] Date of Admission: 10/05/2024 Date of Discharge: [...] Case IDs Date Procedure Surgeon Location Status [id number] 10/10/24 EGD Lino Soto MD ENDOSCOPY Comp [id number] 10/14/24 Left Heart Cath Irving Matta MD [...] at 10/08/2024 1:12 PM EDT US Duplex Bwp-Bkl-Iavmzkh Comp Final Result IMPRESSION: ABDOMEN 1. Cirrhotic [...] 90 tablet Refills: 0 naloxone 4 mg/actuation [place] Commonly known as: NARCAN Apply 1 spray [...] sent to [facility] [address] Hours: Sunday - Sunday: 8:00AM - 6:00PM FLUoxetine 20 MG capsule lactulose 10 gram/15 mL solution loratadine 10 mg tablet methocarbamoL 500 MG tablet midodrine 10 MG tablet naloxone 4 mg/actuation [place] oxyCODONE 5 MG immediate release tablet Discharge [...] Z98.890] 10/07/2024 SBP (spontaneous bacterial peritonitis) ([facility]) [K65.2] 09/08/2024 Anemia [D64.9] 09/05/2024 Metabolic [...] Order Questions: Select Supplement: Boost-1 kcal/ml supplement ([facility] only) As listed above, low sodium [...] AM EDT 10/17/2024 naloxone (NARCAN) 4 mg/actuation [place] Apply 1 spray in one nostril if [...] HEPATOLOGY PROGRESS NOTE Name: Julien Gilbert CSN: [id number] Consulted by: Chelsy Lerner MD Reason for [...] Yes Past Week naloxone (NARCAN) 4 mg/actuation [place] Apply 1 spray in one nostril if [...] of chemical dependency treatment as outpatient. - [facility] with no obstructive coronary disease - Psych eval for PTSD With recommendation of sertraline - Given his renal dysfunction, will plan to list for [facility] when he qualifies on 10/22/2024. 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 Waiting for [facility] today. ASSESSMENT NADIYA on CKD, last discharge [...] Staff. Jeremiah Gamino PGY4 Nephrology. Pager no. [phone] Chief Complaint No chief complaint on file. [...] hyperlipidemia (07/26/2024), Renal cell carcinoma (CMS-HCC), Thrombocytopenia ([facility]), and Thyroid disease. he has [...] at 10/08/2024 1:12 PM EDT US Duplex Lce-Klm-Hkokjbk Comp Final Result IMPRESSION: ABDOMEN 1. Cirrhotic [...] imaging has been performed at [facility]. -CT Head w/o contrast -Imaging [...] Order Questions: Select Supplement: Boost-1 kcal/ml supplement ([facility] only) Code Status: Full Code Signed: WILLIAM BLOUNT MD 10/16/2024, 2:16 PM Cosigned by Chelsy Lerner MD at 10/16/2024 5:38 PM EDT Associated attestation - Chelsy Lerner MD - 10/16/2024 5:38 PM EDT [facility] Medicine Attending Supervision Note Julien [...] another specialty or practice, other licensed professional (PT/OT/MACHINE SPRING FORMER/RT), or a non-medical community professional: Hepatology, Interventional [...] due to positioning during LHC on 10/14. Williams the worst in CVR, but has improved [...] Kumar RD - 10/16/2024 1:08 PM EDT [place] [...] Based on CBW of 119.5 kg Kcals/day: 2151-2857 (18-21 kcals/kg) Protein g/day: 119-143 (1-1.2 g/kg) [...] Kumar RD, LD Clinical Dietitian Contact via ecoATM * Jerad Hughes MD - 10/16/2024 11:03 AM EDT [facility] HEPATOLOGY PROGRESS NOTE Name: Julien Gilbert CSN: [id number] Consulted by: Chelsy Lerner MD Reason for [...] of chemical dependency treatment as outpatient. - [facility] with no obstructive coronary disease - Psych eval for PTSD With recommendation of sertraline - Given his renal dysfunction, will plan to list for [facility] when he qualifies on 10/22/2024. 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 Waiting for [facility] today. ASSESSMENT NADIYA on CKD, last discharge [...] COMMENT on 10/08/2024 Iron%- Iron replete PLAN -[facility] yesterday- patient remains at risk of contrast related injury on top of exisiting NADIYA for 24-48 hrs after contrast load. -He is volume overloaded -patient needs to follow up closely with nephrology after discharge Thank you for allowing us to participate in this patient's care. Discussed with Consult Staff. Jeremiah Gamino PGY4 Nephrology. Pager no. [phone] Chief Complaint No chief complaint on file. [...] at 10/08/2024 1:12 PM EDT US Duplex Exd-Ugt-Muywupt Comp Final Result IMPRESSION: ABDOMEN 1. Cirrhotic [...] not tolerate Stress ECHO on 10/09 - [facility] today -Per GI recs, started on midodrine [...] imaging has been performed at [facility]. -CT Head w/o contrast -Imaging [...] Order Questions: Select Supplement: Boost-1 kcal/ml supplement ([facility] only) Code Status: Full Code Signed: WILLIAM BLOUNT MD 10/15/2024, 10:49 AM Cosigned by Chelsy Lerner MD at 10/15/2024 2:47 PM EDT Associated attestation - Chelsy Lerner MD - 10/15/2024 2:47 PM EDT [facility] Medicine Attending Supervision Note Julien [...] another specialty or practice, other licensed professional (PT/OT/MACHINE SPRING FORMER/RT), or a non-medical community professional: Hepatology, Interventional [...] due to positioning during LHC on 10/14. [place] the worst in CVR, but has improved [...] HEPATOLOGY PROGRESS NOTE Name: Julien Gilbert CSN: [id number] Consulted by: Chelsy Lerner MD Reason for [...] of chemical dependency treatment as outpatient. - [facility] yesterday with no obstructive coronary disease - Psych eval for PTSD and medical management - Given his renal dysfunction, will plan to list for [facility] when he qualifies on 10/22/2024. 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 Waiting for [facility] today. ASSESSMENT NADIYA on CKD, last discharge creatinine 2.4 Baseline Creatinine 1.2-1.3, HRS- NADIYA as no response to holding lasix and albumin UA bland Urine lytes <10/< 15/ 50 Holding lasix give [facility] today Renal Function: Recent Labs 10/14/24 0253 [...] Staff. Jeremiah Gamino PGY4 Nephrology. Pager no. [phone] Chief Complaint No chief complaint on file. [...] at 10/08/2024 1:12 PM EDT US Duplex His-Mfr-Cxqgmbd Comp Final Result IMPRESSION: ABDOMEN 1. Cirrhotic [...] not tolerate Stress ECHO on 10/09 - [facility] today -Per GI recs, started on midodrine [...] imaging has been performed at [facility]. -CT Head w/o contrast -Imaging [...] never required dialysis. Patient is going for [facility] today and will receive contrast, okay per [...] Order Questions: Select Supplement: Boost-1 kcal/ml supplement ([facility] only) Code Status: Full Code Signed: [...] another specialty or practice, other licensed professional (PT/OT/MACHINE SPRING FORMER/RT), or a non-medical community professional: Hepatology, Interventional [...] to diagnostics or treatments Assessment & Plan Juline Gilbert is a [...] HEPATOLOGY PROGRESS NOTE Name: Julien Gilbert CSN: [id number] Consulted by: Chelsy Lerner MD Reason for [...] eval ongoing. Transplant work up ongoing - [facility] today - Transplant nephrology following for consideration [...] - Will follow Bobby Sidhu MD Transplant Garment Sewing Machine Operator Please see the body of the resident, [...] Staff. Jeremiah Gamino PGY4 Nephrology. Pager no. [phone] Chief Complaint No chief complaint on file. [...] HEPATOLOGY PROGRESS NOTE Name: Julien Gilbert CSN: [id number] Consulted by: Fouzia Rene MD Reason for [...] eval ongoing. Transplant work up ongoing - [facility] today - Transplant nephrology following for consideration [...] - Will follow Bobby Sidhu MD Transplant Garment Sewing Machine Operator Please see the body of the resident, [...] no psychomotor abnormalities Cognition: short term and fdc memory intact Attitude: cooperative Affect: full range [...] Fabian RD - 10/13/2024 10:49 AM EDT [place] [...] Order Questions: Select Supplement: Boost-1 kcal/ml supplement ([facility] only) Pertinent Information: Julien Gilbert is a 39 y.o. Male admitted for Acute kidney injury superimposedon CKD ([facility]) Pt noted to have waxing and [...] kg) Body mass index is 32.07 kg/m??. Firth Body Weight: 202 lbs (91.8 kg) +/- 10% Weight History: Wt Readings from Last 10 Encounters: 10/10/24 (!) 263 lb 8 oz (119.5 kg) 09/05/24 (!) 262 lb 9.6 oz (119.1 kg) 09/02/24 (!) 258 lb (117 kg) 08/17/24 (!) 242 lb 11.2 oz (110.1 kg) 07/28/24 (!) 245 lb (111.1 kg) Estimated Nutrition Needs: Based on CBW of 119.5 kg Kcals/day: 8980-1814 (18-21 kcals/kg) Protein g/day: 119-143 (1-1-2 g/kg) [...] Dietitian - Solid Organ Transplant Contact via kenxus Chat * Eileen Schroeder MD, PhD - 10/13/2024 8:19 AM EDT Department of Internal Medicine Daily Progress Note Chief Complaint / Reason for Follow-Up Julien Gilbert is a 39 y.o. male on hospital day 8. The principal reason for today's follow up visit is Acute kidney injury superimposed on CKD ([facility]). NAEON Pt felt well this AM. [...] at 10/08/2024 1:12 PM EDT US Duplex Wyv-Nrb-Fajoxiw Comp Final Result IMPRESSION: ABDOMEN 1. Cirrhotic [...] imaging has been performed at [facility]. -CT Head w/o contrast -Imaging [...] Order Questions: Select Supplement: Boost-1 kcal/ml supplement ([facility] only) Code Status: Full Code Signed: [...] I reviewed the documentation by the medical customer solutions teammate and agree as documented. Any additions or [...] was non-diagnostic due to hypotension. Plan for [facility] today, but now moved to tomorrow. - [...] another specialty or practice, other licensed professional (PT/OT/MACHINE SPRING FORMER/RT), or a non-medical community professional: Nephrology, Hepatology [...] at 10/08/2024 1:12 PM EDT US Duplex Ewy-Bgy-Egntmsd Comp Final Result IMPRESSION: ABDOMEN 1. Cirrhotic [...] imaging has been performed at [facility]. -CT Head w/o contrast -Imaging [...] Order Questions: Select Supplement: Boost-1 kcal/ml supplement ([facility] only) Code Status: Full Code Signed: [...] I reviewed the documentation by the medical customer solutions teammate and agree as documented. Any additions or clarifications are listed below. Daily plan was discussed with patient at bedside and questions addressed. Patient ID: Julien Gilbert is a 39 y.o. male currently admitted for Acute kidney injury superimposed on CKD ([facility]) Supplemental History/ ROS: No acute [...] Acute kidney injury superimposed on CKD ([facility]) Active Problems: NADIYA (acute kidney injury) on CKD ([facility]): Hepatorenal syndrome. Appreciate nephrology consult. [...] home lactulose and rifaximin Decompensated cirrhosis ([facility]): Appreciate hepatology consult. He has [...] another specialty or practice, other licensed professional (PT/OT/MACHINE SPRING FORMER/RT), or a non-medical community professional: Nephrology, Hepatology [...] tid. cardiac workup pre txp. pLan for [facility] Sunday Liver transplant workup per GI/ Primary [...] 706.9 (H) 10/08/2024 No results found for: [id number] , FOLATE Lab Results Component Value Date [...] CRUR No results found for: MICROALBUR , [id number] In addition to the above an extensive [...] 4.6 10/12/2024 Lab Results Component Value Date MVUE22O 7.1 (L) 10/08/2024 PLAN Monitor renal panel [...] AM Colten Huertas MD, KISHOR LIN, FNKF child caregiver Div. of Nephrology [facility] E-mail: [email or web address] This note was completely edited, [...] Rene MD Interval hx No issues. Pending [facility]. Assessment: Renal Function: Cr: 2.77 Bun: 49 [...] 706.9 (H) 10/08/2024 No results found for: [id number] , FOLATE Lab Results Component Value Date [...] CRUR No results found for: MICROALBUR , [id number] In addition to the above an extensive [...] 3.5 10/11/2024 Lab Results Component Value Date GSML36O 7.1 (L) 10/08/2024 PLAN Monitor renal panel [...] AM Colten Huertas MD, KISHOR LIN, CATHYF child caregiver Div. of Nephrology [facility] E-mail: [email or web address] This note was completely edited, [...] at 10/08/2024 1:12 PM EDT US Duplex Ics-Zyc-Vjqvugp Comp Final Result IMPRESSION: ABDOMEN 1. Cirrhotic [...] from outside facility. Will engage with them daily([phone]. Ask to speak to a tech) about [...] imaging has been performed at [facility]. -CT Head w/o contrast -Imaging [...] Order Questions: Select Supplement: Boost-1 kcal/ml supplement ([facility] only) Code Status: Full Code Signed: [...] I reviewed the documentation by the medical customer solutions teammate and agree as documented. Any additions or [...] another specialty or practice, other licensed professional (PT/OT/MACHINE SPRING FORMER/RT), or a non-medical community professional: Nephrology, Hepatology, [...] Strictly monitor urine output No Indication for FISHER SPEAR 3. Not a candidate for terlipressin per [...] Ignacio Queen MD Renal Fellow Pager # [phone] Chief Complaint No chief complaint on file. [...] PHOS -- < > 3.5 3.4 3.3 HDIA95N 7.1* -- -- -- -- < > = values in this interval not displayed. Lab Results Component Value Date IRON 81 10/08/2024 TIBC SEE COMMENT 10/08/2024 FERRITIN 706.9 (H) 10/08/2024 No results found for: [id number] , FOLATE Lab Results Component Value Date [...] CRUR No results found for: MICROALBUR , [id number] In addition to the above an extensive [...] 3.3 10/10/2024 Lab Results Component Value Date ZIYD79I 7.1 (L) 10/08/2024 PLAN Continue IV albumin [...] AM Colten Huertas MD, DELIA, KISHOR, FNKF child caregiver Div. of Nephrology [facility] E-mail: [email or web address] This note was completely edited, [...] to follow pt while pt is at [facility]. * Jodi Ortiz PharmD - 10/10/2024 10:27 AM EDT Clinical Pharmacy Service: Vancomycin Consult Progress Note Patient has been transitioned off of vancomycin therapy per team notes and orders. Pharmacy will sign-off at this time, please do not hesitate to consult again as needs arise. Thank you for involving pharmacy in the care of this patient. Jodi Ortiz PharmD Clinical Byproducts Operator, Internal Medicine Preferred contact: kenxus Secure Chat Clinical Teqavwd-Ap-Ynfi Pager: [phone] October 10, 2024 10:27 AM Laboratory Data [...] 10/07/2024 10:50 PM Giardia Cryptosporidium Antigens Final [id number] 10/07/2024 10:50 PM Ova and Parasite Comprehensive w/ Giardia/Crypto Final [id number] Feces 10/06/2024 1:04 AM #2 Blood culture-Peripheral site 2 Preliminary [id number] Peripheral 10/06/2024 1:04 AM #1 Blood culture-Peripheral site 1 Preliminary [id number] Peripheral Pharmacokinetics Lab Results (Last 7 days) Today 0523 Yesterday 04510/08 0536 [facility] Rdm 16.4 11.0 16.0 * Gerri Peterson MD - 10/10/2024 10:09 AM EDT [facility] HEPATOLOGY PROGRESS NOTE Name: Julien Gilbert CSN: [id number] Consulted by: Fouzia Rene MD Reason for [...] to achieving target HR. -cardiology consult for [facility] on Sunday - Transplant nephrology following for [...] from the original note were not included. [facility] Clinical Pharmacy Service: Vancomycin Monitoring Consult [...] in sodium chloride 0.9 % 250 mL Iend8Ajy (Completed) 1,500 mg Once 10/09/2024 10/09/2024 Admin Instructions: Contact pharmacy if there is a question/concern of whether vancomycin should begiven based on serum drug levels. Use Hsvx8Apz Adapter - Mix Thoroughly Before Administration Route: Intravenous vancomycin (VANCOCIN) 1,500 mg in sodium chloride 0.9 % 250 mL Uxgo4Onb 1,500 mg Once 10/10/2024 10/11/2024 Admin Instructions: Contact pharmacy if there is a question/concern of whether vancomycin should begiven based on serum drug levels. Use Msif7Qxh Adapter - Mix Thoroughly Before Administration Route: [...] in sodium chloride 0.9 % 250 mL Ntjo9Dyx 1,500 mg 166.7 mL/hr 10/08/24 1259 New Bag vancomycin (VANCOCIN) 1,000 mg in sodium chloride 0.9 % 250 mL Uvco2Bim 1,000 mg 250 mL/hr --Objective Data-- Vitals: [...] 53 53 54 Creatinine 2.85 2.89 3.04 Firth body weight: 86.8 kg (191 lb 5.7 oz) Adjusted ideal body weight: 99.9 kg (220 lb 3.5 oz) Estimated CrCl: ~35-45 mL/min --Cultures-- Microbiology Results Date and Time Order Name Sensitivity Status Organisms Specimen ID Source 10/07/2024 10:50 PM Giardia Cryptosporidium Antigens Final [id number] 10/07/2024 10:50 PM Ova and Parasite Comprehensive w/ Giardia/Crypto Final [id number] Feces 10/06/2024 1:04 AM #2 Blood culture-Peripheral site 2 Preliminary [id number] Peripheral 10/06/2024 1:04 AM #1 Blood culture-Peripheral site 1 Preliminary [id number] Peripheral --Vancomycin Concentrations-- Lab Results (Last 7 [...] for the consult. Jodi Ortiz PharmD Clinical Byproducts Operator, Internal Medicine Preferred contact: [employer] Clinical Scefssk-Wy-Meyb Pager: [phone] October 10, 2024 9:13 AM * Eileen Schroeder MD, PhD - 10/10/2024 8:17 AM EDT Department of Internal Medicine Daily Progress Note Chief Complaint / Reason for Follow-Up Julien Gilbert is a 39 y.o. male on hospital day 5. The principal reason for today's follow up visit is Acute kidney injury superimposed on CKD ([facility]). KARENYeniMERLINE Pt was very conversational today. [...] at 10/08/2024 1:12 PM EDT US Duplex Sib-Xec-Dxepuxk Comp Final Result IMPRESSION: ABDOMEN 1. Cirrhotic [...] from outside facility. Will engage with them daily([phone]. Ask to speak to a tech) about [...] imaging has been performed at [facility]. -CT Head w/o contrast -Imaging [...] Order Questions: Select Supplement: Boost-1 kcal/ml supplement ([facility] only) Code Status: Full Code Signed: [...] I reviewed the documentation by the medical customer solutions teammate and agree as documented. Any additions or clarifications are listed below. Daily plan was discussed with patient at bedside and questions addressed. Patient ID: Julien Gilbert is a 39 y.o. male currently admitted for Acute kidney injury superimposed on CKD ([facility]) Supplemental History/ ROS: No acute [...] Acute kidney injury superimposed on CKD ([facility]) Active Problems: Spontaneous Bacterial Peritonitis ([facility]): Cultures from OSH were reported as [...] home lactulose and rifaximin Decompensated cirrhosis ([facility]): Appreciate hepatology consult. He has [...] IR. NADIYA (acute kidney injury) on CKD ([facility]): Appreciate nephrology consult. Likely due [...] another specialty or practice, other licensed professional (PT/OT/MACHINE SPRING FORMER/RT), or a non-medical community professional: Nephrology, Hepatology, [...] Strictly monitor urine output No Indication for FISHER SPEAR Not a candidate for terlipressin per liver due to HE, liver and kidney failure, on midodrine tid. Considering para today, cardiac workup pre txp Liver transplant workup per GI/ Primary team, considering for [facility], seen by renal transplant team Thank you for allowing us to participate in this patient's care. Discussed with Consult Staff. Ignacio Queen MD Renal Fellow Pager # [phone] Chief Complaint No chief complaint on file. [...] 9.0 9.3 PHOS -- 3.5 3.5 3.4 WOPJ70B 7.1* -- -- -- Lab Results Component Value Date IRON 81 10/08/2024 TIBC SEE COMMENT 10/08/2024 FERRITIN 706.9 (H) 10/08/2024 No results found for: [id number] , FOLATE Lab Results Component Value Date [...] CRUR No results found for: MICROALBUR , [id number] In addition to the above an extensive [...] 3.4 10/09/2024 Lab Results Component Value Date FIKE24H 7.1 (L) 10/08/2024 PLAN Continue IV albumin [...] PM Colten Huertas MD, KISHOR LIN, CATHYF child caregiver Div. of Nephrology [facility] E-mail: [email or web address] This note was completely edited, [...] HEPATOLOGY PROGRESS NOTE Name: Julien Gilbert CSN: [id number] Consulted by: Fouzia Rene MD Reason for [...] from the original note were not included. [facility] Clinical Pharmacy Service: Vancomycin Monitoring Consult [...] in sodium chloride 0.9 % 250 mL Hwoz7Xrf (Completed) 1,000 mg Once 10/08/2024 10/08/2024 Admin Instructions: Contact pharmacy if there is a question/concern of whether vancomycin should begiven based on serum drug levels. Use Dosc9Cdq Adapter - Mix Thoroughly Before Administration Route: Intravenous vancomycin (VANCOCIN) 1,500 mg in sodium chloride 0.9 % 250 mL Fwgi0Jrs 1,500 mg Once 10/09/2024 10/10/2024 Admin Instructions: Contact pharmacy if there is a question/concern of whether vancomycin should begiven based on serum drug levels. Use Jvpu6Gtf Adapter - Mix Thoroughly Before Administration Route: [...] in sodium chloride 0.9 % 250 mL Edby5Lwg 1,000 mg 250 mL/hr 10/06/24 1413 New [...] 10/07/2024 10:50 PM Giardia Cryptosporidium Antigens Final [id number] 10/07/2024 10:50 PM Ova and Parasite Comprehensive w/ Giardia/Crypto Final [id number] Feces 10/06/2024 1:04 AM #2 Blood culture-Peripheral site 2 Preliminary [id number] Peripheral 10/06/2024 1:04 AM #1 Blood culture-Peripheral site 1 Preliminary [id number] Peripheral --Vancomycin Concentrations-- Lab Results (Last 7 [...] for the consult. Jodi Ortiz PharmD Clinical Byproducts Operator, Internal Medicine Preferred contact: [employer] Clinical Lidnasl-Df-Zypq Pager: [phone] October 09, 2024 8:29 AM * Eileen Schroeder MD, PhD - 10/09/2024 8:00 AM EDT Department of Internal Medicine Daily Progress Note Chief Complaint / Reason for Follow-Up Julien Gilbert is a 39 y.o. male on hospital day 4. The principal reason for today's follow up visit is Acute kidney injury superimposed on CKD ([facility]). DREW and father at bedside Pt [...] at 10/08/2024 1:12 PM EDT US Duplex Jin-Owu-Qlhvobw Comp Final Result IMPRESSION: ABDOMEN 1. Cirrhotic [...] from outside facility. Will engage with them daily([phone]. Ask to speak to a tech) about [...] imaging has been performed at [facility]. -CT Head w/o contrast -Imaging [...] Order Questions: Select Supplement: Boost-1 kcal/ml supplement ([facility] only) Code Status: Full Code Signed: [...] I reviewed the documentation by the medical customer solutions teammate and agree as documented. Any additions or clarifications are listed below. Daily plan was discussed with patient at bedside and questions addressed. Patient ID: Julien Gilbert is a 39 y.o. male currently admitted for Acute kidney injury superimposed on CKD ([facility]) Supplemental History/ ROS: No acute [...] Acute kidney injury superimposed on CKD ([facility]) Active Problems: Anemia: S/p 1 unit PRBC from yesterday. Hemoglobin responded appropriately and remained stable. Will continue to monitor. Metabolic encephalopathy: Mostly resolved. Likely related to combination of hepatic, metabolic, andpossibly infectious insults. - Continue home lactulose and rifaximin Spontaneous Bacterial Peritonitis ([facility]): Cultures from OSH are growing gram- positive organisms.We continue to await speciation. He remains afebrile and vital signs have been stable. - Continue vancomycin and ceftriaxone for now. - Will follow-up on speciation and sensitivities. Decompensated cirrhosis ([facility]): Appreciate hepatology consult. He has started his transplant evaluation and will continue while inpatient. - MELD labs daily - Continue home regimen with ursodiol, rifaximin and lactulose - Start midodrine 3 times daily - EGD postponed until tomorrow -Planning for stress test today - Due for therapeutic paracentesis in the next day or so. NADIYA (acute kidney injury) on CKD ([facility]): Appreciate nephrology consult. Likely due to hepatorenal syndrome. Now s/p albumin X3. baseline creatinine presumed to be around 2.5. Creatinine slightly lower today. We will continue to monitor. Electrolyte derangements: Replete as needed Neck Pain: He has a history of cervical surgery. Continue oxycodone as needed for pain. Continue tomonitor. Principal Problem: Acute kidney injury superimposed on CKD ([facility]) Active Problems: Decompensated cirrhosis ([facility]) Metabolic encephalopathy Thrombocytopenia ([facility]) Renal mass, left Metabolic acidosis with normal anion gap and bicarbonate losses GERD (gastroesophageal reflux disease) Anemia SBP (spontaneous bacterial peritonitis) ([facility]) Neck pain with history of cervical spinal [...] another specialty or practice, other licensed professional (PT/OT/MACHINE SPRING FORMER/RT), or a non-medical community professional: Nephrology, Hepatology Labs reviewed (1 pt each): CBC, CMP, INR & other daily labs Review of notes from a different specialty or different practice: Nephrology, Anesthesiology hepatology, * Gerri Peterson MD - 10/08/2024 1:40 PM EDT [facility] HEPATOLOGY PROGRESS NOTE Name: Julien Gilbert CSN: [id number] Consulted by: Fouzia Rene MD Reason for [...] I have discussed this plan with the corporate travel coordinator and the liver transplant team. Cosigned [...] from the original note were not included. [facility] Service: Vancomycin Monitoring Consult [...] in sodium chloride 0.9 % 250 mL Fzwz3Ume 1,000 mg Once 10/08/2024 10/09/2024 Admin Instructions: Contact pharmacy if there is a question/concern of whether vancomycin should begiven based on serum drug levels. Use Lmva5Ikl Adapter - Mix Thoroughly Before Administration Route: [...] 10/07/2024 10:50 PM Giardia Cryptosporidium Antigens Final [id number] 10/07/2024 10:50 PM Ova and Parasite Comprehensive w/ Giardia/Crypto In process [id number] Feces 10/06/2024 1:04 AM #2 Blood culture-Peripheral site 2 Preliminary [id number] Peripheral 10/06/2024 1:04 AM #1 Blood culture-Peripheral site 1 Preliminary [id number] Peripheral --Vancomycin Concentrations-- Lab Results (Last 7 [...] for the consult. Jodi Ortiz, PharmD Clinical Byproducts Operator, Internal Medicine Preferred contact: [employer] Clinical Xbvmkix-Qu-Janw Pager: [phone] October 08, 2024 9:13 AM * Eileen [...] FREET4 0.74 09/03/2024 Diagnostic Studies US Duplex Bbd-Cxs-Hirlemi Comp Final Result IMPRESSION: ABDOMEN 1. Cirrhotic [...] imaging has been performed at [facility]. -CT Head w/o contrast -Imaging [...] Order Questions: Select Supplement: Boost-1 kcal/ml supplement ([facility] only) Code Status: Full Code Signed: [...] I reviewed the documentation by the medical customer solutions teammate and agree as documented. Any additions or [...] another specialty or practice, other licensed professional (PT/OT/MACHINE SPRING FORMER/RT), or a non-medical community professional: Nephrology, Hepatology [...] Strictly monitor urine output No Indication for FISHER SPEAR Not a candidate for terlipressin per liver due to HE, liver ans kidney failure, on midodrine tid Liver transplant workup per GI/ Primary team, considering for SLK Thank you for allowing us to participate in this patient's care. Discussed with Consult Staff. Ignacio Queen MD Renal Fellow Pager # [phone] Chief Complaint No chief complaint on file. [...] TIBC , FERRITIN No results found for: [id number] , FOLATE Lab Results Component Value Date [...] <15 No results found for: MICROALBUR , [id number] In addition to the above an extensive [...] 4.0 10/08/2024 Lab Results Component Value Date VWYF62X 7.1 (L) 10/08/2024 PLAN Continue IV albumin [...] AM Colten Huertas MD, KISHOR LIN, FNDeclanF child caregiver Div. of Nephrology [facility] E-mail: [email or web address] This note was completely edited, [...] from the original note were not included. [facility]: Vancomycin Monitoring Consult [...] AM #2 Blood culture-Peripheral site 2 Preliminary [id number] Peripheral 10/06/2024 1:04 AM #1 Blood culture-Peripheral site 1 Preliminary [id number] Peripheral --Vancomycin Concentrations-- Lab Results (Last 7 [...] for the consult. Jodi Ortiz PharmD Clinical Byproducts Operator, Internal Medicine Preferred contact: [employer] Clinical Hgvodhk-Ch-Ehss Pager: [phone] October 07, 2024 5:01 PM * Yamile [...] HEPATOLOGY PROGRESS NOTE Name: Julien Gilbert CSN: [id number] Consulted by: Fouzia Rene MD Reason for [...] selection meeting and clearance by social media strategist. Please order CT cardiac coronary evaluation, transplant [...] Strictly monitor urine output No Indication for FISHER SPEAR Liver transplant workup per GI/ Primary team Thank you for allowing us to participate in this patient's care. Discussed with Consult Staff. Ignacio Queen MD Renal Fellow Pager # [phone] Chief Complaint No chief complaint on file. [...] TIBC , FERRITIN No results found for: [id number] , FOLATE Lab Results Component Value Date [...] <15 No results found for: MICROALBUR , [id number] In addition to the above an extensive [...] PHOS 4.2 10/07/2024 No results found for: [id number] PLAN Continue IV albumin Monitor renal panel [...] AM Colten Huertas MD, KISHOR LIN FNKF child caregiver Div. of Nephrology [facility] E-mail: [email or web address] * Carmen Bernal, OT - 10/07/2024 11:09 AM EDT Occupational Therapy Initial Assessment and Discharge Name: Julien Gilbert : 1985 Attending Physician: Fouzia Rene MD Admission Diagnosis: AMS Date: 10/07/2024 Room: 42/[facility] Reviewed Pertinent hospital course: Yes [...] at 10/06/2024 2:33 AM EDT US Duplex Kog-Wmd-Wttpclt Comp (Results Pending) US Abdomen Complete (Results [...] imaging has been performed at [facility]. -CT Head w/o contrast -Imaging [...] Order Questions: Select Supplement: Boost-1 kcal/ml supplement ([facility] only) Code Status: Full Code Signed: [...] I reviewed the documentation by the medical customer solutions teammate and agree as documented. Any additions or [...] lactulose and rifaximin Spontaneous Bacterial Peritonitis ([facility]): Cultures from OSH are growing [...] and lactulose NADIYA (acute kidney injury) ([facility]): Appreciate nephrology consult. Likely has [...] disease) stage 4, GFR 15-29 ml/min ([facility]) Metabolic acidosis with normal anion [...] another specialty or practice, other licensed professional (PT/OT/MACHINE [employer]ING FORMER/RT), or a non-medical community professional: Nephrology, Hepatology Labs reviewed (1 pt each): CMP, CBC Test results reviewed (1 pt each): CXR, Head CT Review of notes from a different specialty or different practice: Nephrology, hepatology Use of parenteral controlled substances * Kiet Gardiner, PharmD - 10/06/2024 1:07 PM EDT Images from the original note were not included. [facility] Service: Vancomycin Monitoring Consult [...] AM #2 Blood culture-Peripheral site 2 Preliminary [id number] Peripheral 10/06/2024 1:04 AM #1 Blood culture-Peripheral site 1 Preliminary [id number] Peripheral --Vancomycin Concentrations-- Lab Results (Last 7 [...] US Retroperitoneal complete (Results Pending) US Duplex Npy-Wbz-Rfcufog Comp (Results Pending) CT Head WO contrast [...] PM EDT Hospital Medicine Attending Supervision [facility] Julien Gilbert was seen 10/06/24 on [...] Department of Medicine TRANSFER CALL NOTE Location [facility] ED History of Present Illness [...] nearest ED, with plan to transfer to [facility] if needing admission. In the ED, [...] Studies: Na 129 K 4.2 Cl 101 Vnhhqp17 BUN 62 (up from baseline) Cr 3.6 [...] Quan MD - 10/14/2024 1:10 PM EDT [facility] PRE-SEDATION ASSESSMENT, HISTORY & PHYSICAL Date: 10/14/2024 [...] Neuro: AOx3 AUC For Cath Indication(s) for Community Sports Coordinator Visit: Visit Indicators: Suspected CAD 2. Chest Pain Symptom Assessment: Asymptomatic 3. Heart Failure: Yes Class II 4. CHSA Clinical Frailty Scale: Mildly Frail Sedation Plan: Moderate Sedation with Local Anesthesia Antibiotic prophylaxis is not indicated. Mani Quan Interventional Dip Guider Stoves Pager: [phone] [1] Patient Active Problem List Diagnosis Decompensated cirrhosis ([facility]) Acute kidney injury superimposed on CKD ([facility]) Alcohol use disorder Metabolic encephalopathy Hypertension Other hyperlipidemia Thrombocytopenia ([facility]) Renal mass, left Abdominal pain Hypokalemia CKD (chronic kidney disease) stage 4, GFR 15-29 ml/min ([facility]) Metabolic acidosis with normal anion gap and bicarbonate losses GERD (gastroesophageal reflux disease) Hypothyroidism Itching Anemia BRBPR (bright red blood per rectum) SBP (spontaneous bacterial peritonitis) ([facility]) C Diff Diarrhea C. difficile diarrhea Neck pain with history of cervical spinal surgery Cosigned by Irving Matta MD at 10/16/2024 10:54 AM EDT Associated attestation - Irving Matta MD - 10/16/2024 10:54 AM EDT Agree * Gerri Peterson MD - 10/10/2024 10:05 AM EDT [facility] PRE-SEDATION ASSESSMENT, HISTORY & PHYSICAL Date: 10/10/2024 [...] Active Problem List Diagnosis Decompensated cirrhosis ([facility]) Acute kidney injury superimposed on CKD ([facility]) Alcohol use disorder Metabolic encephalopathy Hypertension Other hyperlipidemia Thrombocytopenia ([facility]) Renal mass, left Abdominal pain Hypokalemia CKD (chronic kidney disease) stage 4, GFR 15-29 ml/min ([facility]) Metabolic acidosis with normal anion gap and bicarbonate losses GERD (gastroesophageal reflux disease) Hypothyroidism Itching Anemia BRBPR (bright red blood per rectum) SBP (spontaneous bacterial peritonitis) ([facility]) C Diff Diarrhea C. difficile diarrhea Neck [...] Strain: Low Risk (07/09/2024) Received from [facility] Overall Financial Resource Strain (CARDIA) [...] Answer (07/14/2024) Received from [facility] [place] of Occupational Health - Occupational Stress Questionnaire [...] g at 10/09/24 1305 [facility] Bisi Akella, DO 75 mcg at 10/09/24 [...] values in this interval not displayed. Imaging: @[address]@ I have personally reviewed the imaging and have noted the following: Large recanalized umbilical vein Perihilar varices Replaced right hepatic artery Splenomegaly Spontaneous splenorenal shunt Large volume ascites, No portal vein thrombosis Assessment/Plan: A 39 y.o. male with ETOH decompensated by ascites, hepatic encephalopathy,bleeding esophageal Varices. Use and allocation of SCD, GROCERY CLERK SELLING, DCD and LDLT allografts discussed in detail. [...] from surgery (5%). I also explained the extermination inspector risks of transplantation and immunosuppression including viral [...] taken to Radiology overnight for imaging upload. [facility] performed a bedside paracentesis and sent studies for SBP analysis. Willcontact [facility] to see if labs have resulted. Review of Systems 14 pt ROS conducted and negative aside from that mentioned in above HPI Past Medical and Social History Lives in [place], [place] at bedside Notes that the patient [...] OSH Repeat labs pending on admission to [facility] Assessment & Plan Julien Gilbert is [...] AM EDT Hospital Medicine Attending Supervision Note [facility] Julien Gilbert was seen 10/06/24 on [...] confusion and lethargy. HE was seen at [facility] ED were CT head unremarkable and RUQ with gallstones, abdominal ascites diagnostic para done and started on empiric CTX. Labs remarkable at OSH for K 4.2 Cl 101 Nxukey34 BUN 62 (up from baseline) Cr 3.6 [...] another specialty or practice, other licensed professional (PT/OT/MACHINE SPRING FORMER/RT), or a non-medical community professional: ed team [...] Medicine Department of Internal Medicine Pager ID: [phone] 6:04 AM, 10/06/2024 documented in this encounter [...] CNP Vascular & Interventional Radiology 10/10/2024,1:55 PM [facility]: [phone]) * Lino Soto MD - 10/10/2024 12:06 PM EDT EGD Brief Op Note Julien Gilbert 10/05/2024 - 10/10/2024 Pre-op Diagnosis: Alcoholic cirrhosis of liver with ascites (CMS-HCC) [K70.31] Post-op Diagnosis: Portal gastropathy, Medium size, non-bleeding esophageal varices Procedure(s): EGD Surgeon(s): Lino Soto MD Anesthesia: MAC (Monitor Anesthesia Care) Staff: Fellow: Gerri Peterson MD Endoscopy Nurse: Kandice Castaneda RN Spa Manager/Esthetician: Diana Kemp Estimated Blood Loss: Minimal Specimens: Drains: There were no complications unless listed below. LINO SOTO MD Date: 10/10/2024 Time: 12:18 PM * Lino Soto MD - 10/10/2024 11:48 AM EDT [id number] Procedure Date: 10/10/2024 11:48 AM Patient Name: Julien Gilbert Date of : 1985 Admit Type: Inpatient Age: 39 Gender: Male Note Status: Finalized Attending MD: Lino Soto MD, [id number] Procedure: Upper GI endoscopy Indications: Gastroesopahgeal variceal [...] verified by the physician, the nurse, the christmas tree grader and the electroneurodiagnostic technician in the pre-procedure area in the [...] to hypotension Procedure Code(s): --- Professional --- 81571, GC, Esophagogastroduodenoscopy, flexible, transoral; diagnostic, including collection of specimen(s) by brushing or washing, when performed (separate procedure) Diagnosis Code(s): --- Professional --- I85.00, Esophageal varices without bleeding K76.6, Portal hypertension K31.89, Other diseases of stomach and duodenum CPT copyright 2022 [employer]. All rights reserved. The codes documented in this report are preliminary and upon insurance coder review may be revised to meet [...] In: 12:10:16 PM Scope Out: 12:17:[address] [place] [address], [facility] * Gill Le RN - 10/09/2024 [...] time. 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 Describes significant anxiety that occasionally limits his ability to drive, and stated he has to picker/puller occasionally to collect himself, thought denied specific [...] need for sleep. Has not been on [facility] for mental health since stopping the cymbalta. [...] mother is and his father resides in [facility]. Patient earned a graduate degree and [...] or other abnormalities Cognition/Memory: short term and extermination inspector memory intact. Attention and concentration: is not [...] and escitalopram. Will continue to follow. * Elotn Blanco MD - 10/11/2024 6:26 PM EDTAssociated [...] at baseline or with provocation, shows no xblwk-mi-ruak atrial level shunt. - Pulmonary arteries: Systolic [...] 10/13/24, please keep NPO on 10/12/24 at [place] Risks and benefits of new therapies added and new invasive and non-invasive procedures/diagnostic testing planned discussed with and understood by the patient/family who agree with the above plan. Plan discussed with the attending physician Dr. Blanco. Recommendations are preliminary until this note is co- signed by the attending. Follow up appointments with Cardiology can be scheduled by calling [phone]. Thank you for the opportunity to participate in this patient's care. Please call orpage with any questions. Leonor Garcia MD Dip Guider Stoves I have personally seen, examined, reviewed all [...] 0659 10/11/24 0700 - 10/12/24 0659 Shift [id number] 0291-3117 24 Hour Total 3185-5220 5960-8960 4564-2059 24 Hour Total INTAKE P.O. 8903 406 8751 P.O. 3452 940 4420 Boost (mL) - [facility] only 240 240 I.V.(mL/kg) 450(3.8) Volume [...] (See Comments) Became Manic * Bakari Wahl, [facility] - 10/10/2024 10:07 AM EDT Interventional [...] Please call with any questions. BAKARI WAHL, RECLAMATION WORKER Vascular & Interventional Radiology 10/10/2024,1:54 PM [facility]: [phone]) [1] Social History Tobacco Use Smoking Status [...] EDTAssociated Order(s): IP CONSULT TO INFECTIOUS DISEASES [facility] DEPARTMENT OF INFECTIOUS DISEASE INITIAL NOTE Referring Physician: Fouzia Rene MD Consult Attending: Daria Garcia Patient: Julien Gilbert CSN: [id number] Reason for Consult: CC: Abx management History [...] HE. He was born and raised in [facility] . No travel to the [facility]. 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 Qty: 60 tablet, Refills: 0 Comments: [facility] in [place] [address] sodium bicarbonate 650 MG tablet Take 2 [...] [R47.01] 10/06/2024 SBP (spontaneous bacterial peritonitis) ([facility]) [K65.2] 09/08/2024 Metabolic acidosis with normal anion gap and bicarbonate losses [E87.20] 09/03/2024 CKD (chronic kidney disease) stage 4, GFR 15-29 ml/min ([facility]) [N18.4] 09/03/2024 GERD (gastroesophageal reflux disease) [K21.9] 09/03/2024 Renal mass, left [N28.89] 08/18/2024 Thrombocytopenia ([facility]) [D69.6] Decompensated cirrhosis ([facility]) [K72.90, K74.60] 07/25/2024 NADIYA (acute kidney injury) ([facility]) [N17.9] 07/25/2024 Resolved Hospital Problems No resolved [...] Signed: Daria Garcia MD 10/08/2024, 9:46 AM [phone] [1] Allergies Allergen Reactions Adhesive Itching and [...] the above procedure. History of Present Illness: Juilen Gilbert is an 39 y.o. male seen [...] Strain: Low Risk (07/09/2024) Received from [facility] Overall Financial Resource Strain (CARDIA) [...] Answer (07/14/2024) Received from [facility] [place] of Occupational Health - Occupational Stress Questionnaire [...] is no recent study available for direct egui-qt-wdjz comparison. Left Ventricle The left ventricle is [...] surgery with risk (OLT/OKT) Los Broussard MD, [facility] Department of Anesthesiology [1] Allergies Allergen Reactions Adhesive Itching and Rash Tegaderm adhesive on Ivs, pt states its tolerable Duloxetine Other (See Comments) Became Manic [2] Patient Active Problem List Diagnosis Decompensated cirrhosis ([facility]) NADIYA (acute kidney injury) ([facility]) Alcohol use disorder Metabolic encephalopathy Hypertension Other hyperlipidemia Thrombocytopenia ([facility]) Renal mass, left Abdominal pain Hypokalemia CKD (chronic kidney disease) stage 4, GFR 15-29 ml/min ([facility]) Metabolic acidosis with normal anion gap and bicarbonate losses GERD (gastroesophageal reflux disease) Hypothyroidism Itching Anemia BRBPR (bright red blood per rectum) SBP (spontaneous bacterial peritonitis) ([facility]) C Diff Diarrhea C. difficile diarrhea Aphasia [...] MD PCP: Enedina Mcguire NP Home Pharmacy: [address] [address] [facility] [address] [facility] [address] Issues related to obtaining medications: Payor Information Medical Insurance Coverage: Payor: [employer] / Plan: [facility] [employer] / Product Type: *No [...] No Status & Connection to [facility] [place] Status & Connection to [place] Services Are [...] confusion and lethargy. HE was seen at [facility] ED were CT head unremarkable and RUQ with gallstones, abdominal ascites diagnostic para done and started on empiric CTX. BSN RN Powder Coater Neisha Fuentes met with patient at bedside [...] interest(s) are disclosed as appropriate. Kandy BAE [facility] * Gladys Banda, [employer] - 10/07/2024 11:15 AM EDT Speech Language Pathology Speech, Language and Cognitive Initial Assessment Name: Julien Gilbert : 1985 Attending Physician: Fouzia Rene MD Admission Diagnosis: AMS Date: 10/07/2024 Reviewed Pertinent hospital course: Yes Hospital Course [employer]: 39 y/o male with a past medical [...] 2. No intracranial mass effect or hemorrhage. [employer] Hx: 08/15/24: BSE with recs for regular [...] if new needs arise. No further acute [employer] services are warranted for speech, language, or cognition at this time. Plan/Recommendation: - Discharge from [employer] - no acute needs at this time - [employer] at discharge is not recommended Problem List [...] Primary Mode of Expression: Verbal Primary Language: Occitan Confrontation Naming: Within Functional Limits Word Level [...] Patient educated on: Family educated on;role of MACHINE [employer]ING [employer], current POC, and discharge recommendations forSLP therapy Patient response: Patient verbalized understanding;Family demonstrated understanding End of Session: Patient was left in bed with call light within reach and all needs met. Gladys Banda M.A, YUE-[employer] Speech Language Pathologist--Rehab Services [facility] MBSImP Certified Clinician Time Start Time: 1055 Stop Time: 1109 Time Calculation (min): 14 min Charges $Eval Speech Sound Prd w/Lng Comp & Expr: 1 Procedure Patient Class Inpatient [1] Patient Active Problem List Diagnosis Decompensated cirrhosis ([facility]) NADIYA (acute kidney injury) ([facility]) Alcohol use disorder Metabolic encephalopathy Hypertension Other hyperlipidemia Thrombocytopenia ([facility]) Renal mass, left Abdominal pain Hypokalemia CKD (chronic kidney disease) stage 4, GFR 15-29 ml/min ([facility]) Metabolic acidosis with normal anion gap and [...] NAGMA related to diarrhea No Indication for FISHER SPEAR Liver transplant workup per GI/ Primary team Thank you for allowing us to participate in this patient's care. Discussed with Consult Staff. Ignacio Queen MD Renal Fellow Pager # [phone] Chief Complaint No chief complaint on file. [...] TIBC , FERRITIN No results found for: [id number] , FOLATE Lab Results Component Value Date [...] CRUR No results found for: MICROALBUR , [id number] In addition to the above an extensive [...] 5.3 (H) 10/06/2024 No results found for: [id number] PLAN Patient seen labs reviewed Unclear baseline serum creat Recent episode of acute kidney injury requiring hospitalization Now has [id number] episode of NADIYA Underwent paracentesis 3 days [...] team Colten Huertas MD, KISHOR LIN FNKF child caregiver Div. of Nephrology [facility] E-mail: [email or web address] * Jerad Hughes MD - 10/06/2024 9:28 AM EDTAssociated Order(s): IP CONSULT TO L[facility] CONSULT NOTE Name: Julien Gilbert CSN: [id number] Consulted by: Angie Blanchard MD Reason for Consult: Decompensated Cirrhosis History of Present Illness: Julien Gilbert is a 39 y.o. with history of decompensated EtOH cirrhosis (complicated by EV, HRS, ascites, HE), HTN, and CKD. Patient admitted as transfer from [facility] ED with confusion and lethargy. [...] to diarrhea. Patient was recently referred to [facility] for liver transplant evaluation. Patient was evaluated by transplant social media strategist on 09/25/2024 and it was determined that [...] verbalize understanding. Transported via wheelchair to the [facility] to bepicked up for a lyft. 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 Bedside report received from car barn laborer, RN. Pt placed on telemetry, serial vital signs set up. Access site: RRA. Site is soft, no bleeding/hematoma, [address] Sheath removed in car barn laborer at 1402, TR band placed to [...] arrived with and admitted into [facility] from [facility] with AMS. Orestest paged to the bedside [...] Patient will remain free of falls Goal: [place] Fall Precautions Outcome: Progressing Problem: Daily Care Goal: Daily care needs are met Description: Assess and monitor ability to perform self care and identify potential discharge needs. Outcome: Progressing * Care Coordination - Kandy Fuentes - 10/16/2024 11:33 AM EDT [facility] Work Department Progress [...] Home Pharmacy: [facility] [address] [place] [address], [facility] [address] [address] [facility] [address] [facility] [id number] Medical Insurance Coverage: Payor: [email or web address] / Plan: [facility] / Product Type: *No Producttype* / Other Pertinent Information RN/CM received update from team and completed chart review. Pt is not medically ready for discharge. Nephrology to see today. Here for pre-transplant work up. Discharge Plan Anticipated discharge plan: home Anticipated discharge date: 10/17/24 CM/SW will continue to follow and remain available for discharge planning needs. Kandy [facility] * Plan of Care - [...] Patient will remain free of falls Goal: [place] Fall Precautions Outcome: Progressing Problem: Daily Care [...] Patient will remain free of falls Goal: [place] Fall Precautions Outcome: Progressing Problem: Daily Care [...] Kandy Fuentes - 10/15/2024 2:26 PM EDT [facility] Work Department Progress Note Patient Information Patient Name: Julien Gilbert Hospital day: 10 Inpatient/Observation: Inpatient Level of Care: blue Admit date: 10/05/2024 Admission diagnosis: AMS PMH: has a past medical history of Alcoholic cirrhosis of liver ([facility]), Esophageal varices ([facility]), Hepatorenal syndrome ([facility]), Hypertension, Other hyperlipidemia (07/26/2024), Renal cell carcinoma ([facility]), Thrombocytopenia ([facility]), and Thyroid disease. PCP: Enedina Mcguire NP Home Pharmacy: [facility] [address] [place], [place] [address]DO [facility] [address] [address] [facility] [address] [facility] [id number] Medical Insurance Coverage: Payor: [facility] / Plan: [facility] / Product Type: *No Producttype* / Other Pertinent Information RN/CM received update from team and completed chart review. Pt is not medically ready for discharge. Nephrology following. Watching creatinine levels. Had left heart cath yesterday. Discharge Plan Anticipated discharge plan: home Anticipated discharge date: 10/16/24 CM/SW will continue to follow and remain available for discharge planning needs. Kandy [facility] * Plan of Care - [...] Patient will remain free of falls Goal: [place] Fall Precautions Outcome: Progressing Problem: Daily Care [...] Kandy Fuentes - 10/14/2024 11:10 AM EDT [facility] Progress Note Patient Information Patient Name: Julien Gilbert Hospital day: 9 Inpatient/Observation: Inpatient Level of Care: blue Admit date: 10/05/2024 Admission diagnosis: AMS PMH: has a past medical history of Alcoholic cirrhosis of liver (CMS-HCC), Esophageal varices ([facility]), Hepatorenal syndrome ([facility]), Hypertension, Other hyperlipidemia (07/26/2024), Renal cell carcinoma (CMS-HCC), Thrombocytopenia ([facility]), and Thyroid disease. PCP: Enedina Mcguire NP Home Pharmacy: [facility] [address] [place] [id number] [facility] [address] [facility] [address] Medical Insurance Coverage: Payor: [facility] / Plan: [facility] / Product Type: *No [...] Kandy Fuentes - 10/13/2024 11:53 AM EDT [facility] Work Department Progress Note Patient Information Patient Name: Julien Gilbert Hospital day: 8 Inpatient/Observation: Inpatient Level of Care: blue Admit date: 10/05/2024 Admission diagnosis: AMS PMH: has a past medical history of Alcoholic cirrhosis of liver (CMS-HCC), Alcoholic hepatitis, Esophageal varices (CMS-HCC), Hepatorenal syndrome (CMS- HCC), Hypertension, Other hyperlipidemia (07/26/2024), Renal cell carcinoma (CMS-HCC), Thrombocytopenia ([facility]), and Thyroid disease. PCP: Enedina Mcguire NP Home Pharmacy: [facility] [address] [place] [address], [facility] [address] [address] [facility] [address] [facility] [id number] Medical Insurance Coverage: Payor: [facility] / Plan: [facility] / Product Type: *No Producttype* / Other Pertinent Information RN/TAYLOR received update from team and completed chart review. Pt is not medically ready for discharge. Patient is going to have left heart cath today. Discharge Plan Anticipated discharge plan: home Anticipated discharge date: 10/14/24 CM/SW will continue to follow and remain available for discharge planning needs. Kandy [facility] * Plan of Care - Gerda [...] Kandy Fuentes - 10/10/2024 12:00 PM EDT [facility]Social Work Department Progress [...] Home Pharmacy: [facility] [address] [address] [place], [place] [address] [address] [facility] [address] [facility] [address] Medical Insurance Coverage: Payor: [facility] / Plan: [facility] / Product Type: *No [...] Patient will remain free of falls Goal: [place] Fall Precautions Outcome: Progressing Problem: Daily Care [...] Patient will remain free of falls Goal: [place] Fall Precautions Outcome: Progressing Problem: Daily Care [...] Kandy Fuentes - 10/09/2024 12:05 PM EDT [facility]Social Work Department Progress [...] Pharmacy: [facility] [address] [place], [facility] [address] [address] [facility] [address] [facility] [id number] Medical Insurance Coverage: Payor: [facility] / Plan: [facility] / Product Type: *No [...] Kandy Fuentes - 10/08/2024 3:41 PM EDT [facility] Work [facility] Progress Note Patient Information Patient Name: Julien Gilbert Hospital day: 3 Inpatient/Observation: Inpatient Level of Care: blue Admit date: 10/05/2024 Admission diagnosis: AMS PMH: has a past medical history of Alcoholic cirrhosis of liver (CMS-HCC), Alcoholic hepatitis, Esophageal varices (CMS-HCC), Hepatorenal syndrome (CMS- HCC), Hypertension, Other hyperlipidemia (07/26/2024), Renal cell carcinoma (CMS-HCC), Thrombocytopenia ([facility]), and Thyroid disease. PCP: Enedina Mcguire NP Home Pharmacy: [facility] [address] [place] [id number] [facility] [address] [facility] [id number] Medical Insurance Coverage: Payor: [facility] / Plan: [facility] / Product Type: *No [...] Kandy Fuentes - 10/07/2024 3:22 PM EDT [facility]Social Work Department Progress Note Patient Information Patient Name: Julien Gilbert Hospital day: 2 Inpatient/Observation: Inpatient Level of Care: blue Admit date: 10/05/2024 Admission diagnosis: AMS PMH: has a past medical history of Alcoholic cirrhosis of liver (CMS-HCC), Alcoholic hepatitis, Esophageal varices (CMS-HCC), Hepatorenal syndrome (CMS- HCC), Hypertension, Other hyperlipidemia (07/26/2024), Renal cell carcinoma (CMS-HCC), Thrombocytopenia ([facility]), and Thyroid disease. PCP: Enedina Mcguire NP Home Pharmacy: [facility] [address] [place] [address] [facility] [address] [facility] [id number] Medical Insurance Coverage: Payor: [facility] / Plan: [facility] / Product Type: *No [...] Patient will remain free of falls Goal: [place] Fall Precautions Outcome: Progressing Problem: Daily Care [...] Description 12/05/2024 8:01 AM EDT Hospital Encounter [facility] ENDOSCOPY [address] [place] [address] Chris Orosco MD [address] [place] [phone] 12/05/2024 8:01 AM EDT - 12/05/2024 8:31 AM EDT Surgery [facility] ENDOSCOPY [address] [place] [address] Chris Orosco MD [address] [place] [phone] EGD Scheduled Procedures Name Priority Associated Diagnoses Date/Ti me EGD Cirrhosis of liver with ascites, unspecified hepatic cirrhosis type ([facility]) 12/05/2024 8:01 AM EDT documented [...] IGG ANTIBODY Routine 10/07/2024 6:37 PM EDT [id number] (AAT) QUANTITATION & MUTATION Routine 10/07/2024 6:37 [...] Routine 10/07/2024 6:19 PM EDT US DUPLEX [id number] COMPLETE Routine 10/07/2024 3:48 PM EDT US [...] 10/06/2024 4:01 AM EDT UPPER RESPIRATORY VIRAL/BACTERIAL PANEL-SCRAPER TENDER ONLY Routine 10/06/2024 3:12 AM EDT XR [...] - 146 mmol/L 10/17/2024 7:02 AM T [facility] Potassium 3.4(L) 3.5 - 5.3 mmol/L 10/17/2024 7:02 AM [facility] Chloride 104 98 - 110 mmol/L 10/17/2024 7:02 AM EDT [facility] CO2 18(L) 21 - 33 mmol/L 10/17/2024 7:02 AM [facility] Anion Gap 11 3 - 16 mmol/L 10/17/2024 7:02 AM [facility] BUN 54(H) 7 - 25 mg/dL 10/17/2024 7:02 AM [facility] Creatinine 2.88(H) 0.60 - 1.30 mg/dL 10/17/2024 7:02 AM [facility] Glucose 127(H) 70 - 100 mg/dL 10/17/2024 7:02 AM [facility] Calcium 8.2(L) 8.6 - 10.3 mg/dL 10/17/2024 7:02 AM [facility] Phosphorus 4.5 2.1 - 4.7 mg/dL 10/17/2024 7:02 AM [facility] Albumin 3.1(L) 3.5 - 5.7 g/dL 10/17/2024 7:02 AM [facility] Osmolality, Calculated 292 278 - 305 mOsm/kg 10/17/2024 7:02 AM [facility] EGFR 27 10/17/2024 7:02 AM [facility] Comment:As of 2021, the [...] M, Olivia [place], Emerita ND, Madelyn [place], [employer] [place], et al. A Unifying Approach for GFR Estimation: Recommendations of the NKF-ASN Task Force on Reassessing the inclusion of Race in Diagnosing Kidney Disease. Am J Kidney Dis. 2020. Plasma 10/17/2024 5:48 AM EDT 10/17/2024 6:32 AM EDT Eileen Schroeder MD, PhD LAB BLOOD ORDERABLES Final Result Performing Organization Address [facility] de Phone Number [facility] [address] [facility]. [address] * (ABNORMAL) Protime-INR (10/16/2024 6:31 AM EDT) Protime 22.5(H) 12.1 - 15.1 seconds 10/16/2024 8:04 AM EDT [facility] INR 1.9(H) 0.9 - 1.1 10/16/2024 8:04 AM EDT [facility] Comment: RECOMMENDED THERAPEUTIC RANGES USING INR : Stable oral anticoagulant therapy: 2.0 - 3.0 Mechanical prosthetic heart valve: 2.5 - 3.5 Recurrent acute myocardial infarction: 2.5 - 3.5 Plasma 10/16/2024 6:31 AM EDT 10/16/2024 6:56 AM EDT Eileen Schroeder MD, PhD LAB BLOOD ORDERABLES Final Result Performing Organization Address [facility] de Phone Number [facility] [address] [facility]. [address] * (ABNORMAL) Hepatic Function Panel (10/16/2024 6:31 AM EDT) Total Bilirubin 7.6(H) 0.0 - 1.5 mg/dL 10/16/2024 7:24 AM EDT [facility] Bilirubin, Direct 3.97(H) 0.00 - 0.40 mg/dL 10/16/2024 7:24 AM EDT [facility] AST 45(H) 13 - 39 U/L 10/16/2024 7:24 AM EDT [facility] ALT 23 7 - 52 U/L 10/16/2024 7:24 AM EDT [facility] Alkaline Phosphatase 137(H) 36 - 125 U/L 10/16/2024 7:24 AM EDT [facility] Total Protein 5.1(L) 6.4 - 8.9 g/dL 10/16/2024 7:24 AM EDT [facility] Albumin 3.4(L) 3.5 - 5.7 g/dL 10/16/2024 7:24 AM EDT [facility] Bilirubin, Indirect 3.63(H) 0.00 - 1.10 mg/dL 10/16/2024 7:24 AM EDT [facility] Plasma 10/16/2024 6:31 AM EDT 10/16/2024 6:56 AM EDT us Eileen Schroeder MD, PhD LAB BLOOD ORDERABLES Final Result Performing Organization Address [facility]/ZIP Co de Phone Number [facility] [address] * Magnesium (10/16/2024 6:31 AM EDT) Magnesium 2.1 1.5 - 2.5 mg/dL 10/16/2024 7:24 AM EDT [facility] Plasma 10/16/2024 6:31 AM EDT 10/16/2024 6:56 AM EDT us Eileen Schroeder MD, PhD LAB BLOOD ORDERABLES Final Result Performing Organization Address [facility]/ZIP Co de Phone Number [facility] [address] * (ABNORMAL) Renal Function Panel w/EGFR (10/16/2024 6:31 AM EDT) Sodium 135 133 - 146 mmol/L 10/16/2024 7:24 AM EDT [facility] Potassium 3.7 3.5 - 5.3 mmol/L 10/16/2024 7:24 AM EDT [facility] Chloride 106 98 - 110 mmol/L 10/16/2024 7:24 AM EDT [facility] CO2 16(L) 21 - 33 mmol/L 10/16/2024 7:24 AM EDT [facility] Anion Gap 13 3 - 16 mmol/L 10/16/2024 7:24 AM EDT [facility] BUN 55(H) 7 - 25 mg/dL 10/16/2024 7:24 AM EDT [facility] Creatinine 3.20(H) 0.60 - 1.30 mg/dL 10/16/2024 7:24 AM EDT [facility] Glucose 121(H) 70 - 100 mg/dL 10/16/2024 7:24 AM EDT [facility] Calcium 8.5(L) 8.6 - 10.3 mg/dL 10/16/2024 7:24 AM EDT [facility] Phosphorus 4.2 2.1 - 4.7 mg/dL 10/16/2024 7:24 AM EDT [facility] Albumin 3.4(L) 3.5 - 5.7 g/dL 10/16/2024 7:24 AM EDT [facility] Osmolality, Calculated 296 278 - 305 mOsm/kg 10/16/2024 7:24 AM EDT [facility] EGFR 24 10/16/2024 7:24 AM EDT [facility] Comment:As of 2021, the estimated GFR [...] MD, PhD LAB BLOOD ORDERABLES Final Result [facility] [address] [place] [address], [facility] * (ABNORMAL) CBC (10/16/2024 6:31 AM EDT) WBC 5.8 3.8 - 10.8 10E3/uL 10/16/2024 8:00 AM EDT [facility] RBC 2.16(L) 4.20 - 5.80 10E6/uL 10/16/2024 8:00 AM EDT [facility] Hemoglobin 7.7(L) 13.2 - 17.1 g/dL 10/16/2024 8:00 AM EDT [facility] Hematocrit 22.1(L) 38.5 - 50.0 % 10/16/2024 8:00 AM EDT [facility] MCV 102.3(H) 80.0 - 100.0 fL 10/16/2024 8:00 AM EDT [facility] MCH 35.7(H) 27.0 - 33.0 pg 10/16/2024 8:00 AM EDT [facility] MCHC 34.9 32.0 - 36.0 g/dL 10/16/2024 8:00 AM EDT [facility] RDW 17.7(H) 11.0 - 15.0 % 10/16/2024 8:00 AM EDT [facility] Platelets 43(L) 140 - 400 10E3/uL 10/16/2024 8:00 AM EDT [facility] Comment: Specimen checked for clots. None detected. Slide Reviewed for PLT Clumps. None Seen. Platelet Estimate Decreased 10/16/2024 8:00 AM EDT [facility] MPV 8.6 7.5 - 11.5 fL 10/16/2024 8:00 AM EDT [facility] Whole Blood 10/16/2024 6:31 AM EDT 10/16/2024 6:57 AM EDT Narrative [facility] - 10/16/2024 8:00 AM EDT Peripheral blood smear was scanned per review criteria approved by the laboratory medical technologist. us Eileen Schroeder MD, PhD LAB BLOOD ORDERABLES Final Result [facility] [address] [place] [address], [facility] * CARISA Rhythm Strip - Scan (10/15/2024 8:02 PM EDT) us Scanning Uchhim SCAN DOCS - NO RESULTS Final Res ult * CARISA Rhythm Strip - Scan (10/15/2024 8:02 PM EDT) us Scanning Uchhim SCAN DOCS - NO RESULTS Final Res ult * Prepare Platelets, leukoreduced, 1 Units (10/15/2024 6:16 AM EDT) Product Code P8773E50 [facility] Unit Number [id number] [facility] Dispense Status Presumed Transfused_PT [facility]LL Blood Expiration Date 268849930095 [facility] Coding System [id number] [facility] Blood Bank Product Eleazar Nguyễn MD BLOOD BANK PRODUCT ORDE RABJOSE R Final Result Performing Organization Address [facility] [[email or web address]] Co de Phone Number [facility] * Prepare Fresh Frozen Plasma, 1 Units (10/15/2024 6:15 AM EDT) Product Code H2340O85 [facility] Unit Number [id number] [facility] Dispense Status Presumed Transfused_PT [facility] Blood Expiration Date [id number] HCLL Coding System [id number] [facility] Blood Bank Product Eleazar Nguyễn MD [...] BLOOD ORDERABLES Final Result [facility] [address] [place] [address], [facility] * (ABNORMAL) Hepatic Function Panel (10/15/2024 6:08 AM EDT) Total Bilirubin 7.1(H) 0.0 - 1.5 mg/dL 10/15/2024 6:45 AM EDT [facility] Bilirubin, Direct 3.77(H) 0.00 - 0.40 mg/dL 10/15/2024 6:45 AM EDT [facility] AST 39 13 - 39 U/L 10/15/2024 6:45 AM EDT [facility] ALT 22 7 - 52 U/L 10/15/2024 6:45 AM EDT [facility] Alkaline Phosphatase 115 36 - 125 U/L 10/15/2024 6:45 AM EDT [facility] Total Protein 4.8(L) 6.4 - 8.9 g/dL 10/15/2024 6:45 AM EDT [facility] Albumin 3.2(L) 3.5 - 5.7 g/dL 10/15/2024 6:45 AM EDT [facility] Bilirubin, Indirect 3.33(H) 0.00 - 1.10 mg/dL 10/15/2024 6:45 AM EDT [facility] Plasma 10/15/2024 6:08 AM EDT 10/15/2024 6:17 AM EDT us Eileen Schroeder MD, PhD LAB BLOOD ORDERABLES Final Result Performing Organization Address City/[facility]/ZIP Co de Phone Number [facility] [address] * Magnesium (10/15/2024 6:08 AM EDT) Magnesium 1.8 1.5 - 2.5 mg/dL 10/15/2024 6:45 AM EDT [facility] Plasma 10/15/2024 6:08 AM EDT 10/15/2024 6:17 AM EDT us Eileen Schroeder MD, PhD LAB BLOOD ORDERABLES Final Result Performing Organization Address [facility] de Phone Number [facility] [address] * (ABNORMAL) Renal Function Panel w/EGFR (10/15/2024 6:08 AM EDT) Sodium 135 133 - 146 mmol/L 10/15/2024 6:45 AM EDT [facility] Potassium 3.4(L) 3.5 - 5.3 mmol/L 10/15/2024 6:45 AM EDT [facility] Chloride 107 98 - 110 mmol/L 10/15/2024 6:45 AM EDT [facility] CO2 17(L) 21 - 33 mmol/L 10/15/2024 6:45 AM EDT [facility] Anion Gap 11 3 - 16 mmol/L 10/15/2024 6:45 AM EDT [facility] BUN 55(H) 7 - 25 mg/dL 10/15/2024 6:45 AM EDT [facility] Creatinine 2.88(H) 0.60 - 1.30 mg/dL 10/15/2024 6:45 AM EDT [facility] Glucose 125(H) 70 - 100 mg/dL 10/15/2024 6:45 AM EDT [facility] Calcium 8.4(L) 8.6 - 10.3 mg/dL 10/15/2024 6:45 AM EDT [facility] Phosphorus 3.9 2.1 - 4.7 mg/dL 10/15/2024 6:45 AM EDT [facility] Albumin 3.2(L) 3.5 - 5.7 g/dL 10/15/2024 6:45 AM EDT [facility] Osmolality, Calculated 297 278 - 305 mOsm/kg 10/15/2024 6:45 AM EDT [facility] EGFR 27 10/15/2024 6:45 AM EDT [facility] Comment:As of 2021, the estimated GFR [...] MD, PhD LAB BLOOD ORDERABLES Final Result [facility] [address] [place] [id number] * (ABNORMAL) CBC (10/15/2024 6:08 AM EDT) WBC 4.6 3.8 - 10.8 10E3/uL 10/15/2024 6:51 AM EDT [facility] RBC 1.94(L) 4.20 - 5.80 10E6/uL 10/15/2024 6:51 AM EDT [facility] Hemoglobin 7.1(L) 13.2 - 17.1 g/dL 10/15/2024 6:51 AM EDT [facility] Hematocrit 19.6(L) 38.5 - 50.0 % 10/15/2024 6:51 AM EDT [facility] MCV 100.8(H) 80.0 - 100.0 fL 10/15/2024 6:51 AM EDT [facility] MCH 36.7(H) 27.0 - 33.0 pg 10/15/2024 6:51 AM EDT [facility] MCHC 36.4(H) 32.0 - 36.0 g/dL 10/15/2024 6:51 AM EDT [facility] RDW 17.3(H) 11.0 - 15.0 % 10/15/2024 6:51 AM EDT [facility] Platelets 34(L) 140 - 400 10E3/uL 10/15/2024 6:51 AM EDT [facility] Comment:Specimen checked for clots. None detected. MPV 8.7 7.5 - 11.5 fL 10/15/2024 6:51 AM EDT [facility] Whole Blood 10/15/2024 6:08 AM EDT 10/15/2024 6:17 AM EDT us Eileen Schroeder MD, PhD LAB BLOOD ORDERABLES Final Result Performing Organization Address City/State/[facility] [[email or web address]] Co de Phone Number [facility] [address] * PRA-HLA Ab Screen (Cytotoxic) (10/15/2024 6:08 AM EDT) [facility] The request and specimen(s) for this test have been received and transported to the [facility] at [address] [place] [address]. The [facility] [facility] will report results directly to the client. 10/15/2024 6:42 AM EDT [facility] Comment:The request and spec imen(s) for this test have been received and transported to the [facility] [place] at [address] [place] [address]. The [facility] will report results directly to the client. Serum 10/15/2024 6:08 AM EDT 10/15/2024 6:42 AM EDT us Cosmo Pacheco MD LAB BLOOD ORDERABLES Final Resul t [facility] [address] [facility] [place] [address], [facility] * LEFT HEART CATH (10/14/2024 2:09 PM EDT) 10/14/2024 11:4 7 AM EDT Narrative [facility] - 10/14/2024 9:27 PM EDT *[facility]* Cardiac Community Sports Coordinator [address] [address] CATHETERIZATION LAB STUDY Patient: Julien Gilbert Age: [...] manner. 3. Right radial artery access. A [id number] Glidesheath - Slender - .021 sheath was [...] + + !LV pressure s/d, ed !, dP/km=1985sc Hg/s! + + + !Aortic pressure s/d (m)!106/58 (75) ! + + + ATTESTATION: Dr. Matta was present for the entire procedure. Dr. Jay Quan was the initial author of this report. Prepared and electronically signed by Irving Matta MD [id number] Procedure Note Irving Matta MD - 10/14/2024 *[facility]* Cardiac Community Sports Coordinator [address] [place] [address] CATHETERIZATION LAB STUDY Patient: Julien Gilbert Age: [...] manner. 3. Right radial artery access. A [id number] Glidesheath - Slender - .021sheath was advanced [...] complications. Contrast: Omnipaque 350 25ml (total dose). [id number] 125ml (wasted). Radiation: Fluoroscopy time: 15min. Total [...] + !LV pressure s/d, ed !112/1, 22, dP/vh=3063xl Hg/s! + + + !Aortic pressure s/d (m)!106/58 (75) ! + + + ATTESTATION: Dr. Matta was present for the entire procedure. Dr. Jay Quan wasthe initial author of this report. Prepared and electronically signed by Irving Matta MD [id number] [place] [id number] Final Result Performing Organization Address [facility] [[email or web address]] Co de Phone Number [facility] * Transfuse Fresh Frozen Plasma Transfusion Rate: Per dept routine (10/14/2024 2:08 PM EDT) us Eleazar Nguyễn MD NURSING TREATMENT ORDER PAL - BLOOD ADMIN Final Result Performing Organization Address [facility]/ZIP Co de Phone Number EXTERNAL [...] BLOOD ADMIN Final Result Performing Organization Address [facility]/ZIP Co de Phone Number EXTERNAL * Transfuse Platelets Transfusion Rate: Per dept routine, 1 Units (10/14/2024 12:43 PM EDT) Eleazar Nguyễn MD NURSING TREATMENT ORDER PAL - BLOOD ADMIN Final Result EXTERNAL * Antibody Screen (10/14/2024 8:21 AM EDT) Antibody Screen Negative 10/14/2024 9:11 AM EDT [facility] Blood 10/14/2024 8:21 AM EDT 10/14/2024 8:33 AM EDT Narrative [facility] - 10/14/2024 9:26 AM EDT Testing performed by [facility] Transfusion Service us Eleazar Nguyễn MD BLOOD BANK TEST ORDERAB LES Final Result Performing Organization Address [facility] [[email or web address]] Co de Phone Number [facility] [address] [facility]. [address] * ABO/Rh (10/14/2024 8:21 AM EDT) ABO Grouping O 10/14/2024 8:55 AM EDT [facility] Rh Type Positive 10/14/2024 8:55 AM EDT [facility] Blood 10/14/2024 8:21 AM EDT 10/14/2024 8:33 AM EDT Eleazar Nguyễn MD BLOOD BANK TEST ORDERAB LES Final Result Performing Organization Address [facility] [[email or web address]] Co de Phone Number [facility] [address] [facility]. [address] * (ABNORMAL) Protime-INR (10/14/2024 2:53 AM EDT) Protime 23.8(H) 12.1 - 15.1 seconds 10/14/2024 4:34 AM EDT [facility] INR 2.1(H) 0.9 - 1.1 10/14/2024 4:34 AM EDT [facility] Comment: RECOMMENDED THERAPEUTIC RANGES USING INR : Stable oral anticoagulant therapy: 2.0 - 3.0 Mechanical prosthetic heart valve: 2.5 - 3.5 Recurrent acute myocardial infarction: 2.5 - 3.5 Plasma 10/14/2024 2:53 AM EDT 10/14/2024 4:16 AM EDT us Eileen Schroeder MD, PhD LAB BLOOD ORDERABLES Final Result Performing Organization Address [facility] [[email or web address]] Co de Phone Number [facility] [address] [facility]. [address] * (ABNORMAL) Hepatic Function Panel (10/14/2024 2:53 AM EDT) Total Bilirubin 7.2(H) 0.0 - 1.5 mg/dL 10/14/2024 4:45 AM EDT [facility] Bilirubin, Direct 3.86(H) 0.00 - 0.40 mg/dL 10/14/2024 4:45 AM EDT [facility] AST 41(H) 13 - 39 U/L 10/14/2024 4:45 AM EDT [facility] ALT 22 7 - 52 U/L 10/14/2024 4:45 AM EDT [facility] Alkaline Phosphatase 119 36 - 125 U/L 10/14/2024 4:45 AM EDT [facility] Total Protein 4.6(L) 6.4 - 8.9 g/dL 10/14/2024 4:45 AM EDT [facility] Albumin 3.3(L) 3.5 - 5.7 g/dL 10/14/2024 4:45 AM EDT [facility] Bilirubin, Indirect 3.34(H) 0.00 - 1.10 mg/dL 10/14/2024 4:45 AM EDT [facility] Plasma 10/14/2024 2:53 AM EDT 10/14/2024 4:16 AM EDT Eileen Schroeder MD, PhD LAB BLOOD ORDERABLES Final Result Performing Organization Address [facility]/ZIP Co de Phone Number [facility] [address] [facility]. [address] * Magnesium (10/14/2024 2:53 AM EDT) Magnesium 1.9 1.5 - 2.5 mg/dL 10/14/2024 4:45 AM EDT [facility] Plasma 10/14/2024 2:53 AM EDT 10/14/2024 4:16 AM EDT Eileen Schroeder MD, PhD LAB BLOOD ORDERABLES Final Result [facility] [address] [place] [address], [facility] * (ABNORMAL) Renal Function Panel w/EGFR (10/14/2024 2:53 AM EDT) Sodium 136 133 - 146 mmol/L 10/14/2024 4:45 AM EDT [facility] Potassium 3.5 3.5 - 5.3 mmol/L 10/14/2024 4:45 AM EDT [facility] Chloride 107 98 - 110 mmol/L 10/14/2024 4:45 AM EDT [facility] CO2 16(L) 21 - 33 mmol/L 10/14/2024 4:45 AM EDT [facility] Anion Gap 13 3 - 16 mmol/L 10/14/2024 4:45 AM EDT [facility] BUN 55(H) 7 - 25 mg/dL 10/14/2024 4:45 AM EDT [facility] Creatinine 3.01(H) 0.60 - 1.30 mg/dL 10/14/2024 4:45 AM EDT [facility] Glucose 95 70 - 100 mg/dL 10/14/2024 4:45 AM EDT [facility] Calcium 8.5(L) 8.6 - 10.3 mg/dL 10/14/2024 4:45 AM EDT [facility] Phosphorus 4.4 2.1 - 4.7 mg/dL 10/14/2024 4:45 AM EDT [facility] Albumin 3.3(L) 3.5 - 5.7 g/dL 10/14/2024 4:45 AM EDT [facility] Osmolality, Calculated 297 278 - 305 mOsm/kg 10/14/2024 4:45 AM EDT [facility] EGFR 26 10/14/2024 4:45 AM EDT [facility] Comment:As of 2021, the estimated GFR [...] MD, PhD LAB BLOOD ORDERABLES Final Result [facility] [address] [id number], [facility] * (ABNORMAL) CBC (10/14/2024 2:53 AM EDT) WBC 5.5 3.8 - 10.8 10E3/uL 10/14/2024 5:00 AM EDT [facility] RBC 2.09(L) 4.20 - 5.80 10E6/uL 10/14/2024 5:00 AM EDT [facility] Hemoglobin 7.6(L) 13.2 - 17.1 g/dL 10/14/2024 5:00 AM EDT [facility] Hematocrit 21.3(L) 38.5 - 50.0 % 10/14/2024 5:00 AM EDT [facility] MCV 101.7(H) 80.0 - 100.0 fL 10/14/2024 5:00 AM EDT [facility] MCH 36.3(H) 27.0 - 33.0 pg 10/14/2024 5:00 AM EDT [facility] MCHC 35.7 32.0 - 36.0 g/dL 10/14/2024 5:00 AM EDT [facility] RDW 17.6(H) 11.0 - 15.0 % 10/14/2024 5:00 AM EDT [facility] Platelets 35(L) 140 - 400 10E3/uL 10/14/2024 5:00 AM EDT [facility] Comment: Specimen checked for clots. None detected. Slide Reviewed for PLT Clumps. None Seen. MPV 8.5 7.5 - 11.5 fL 10/14/2024 5:00 AM EDT [facility] Whole Blood 10/14/2024 2:53 AM EDT 10/14/2024 4:17 AM EDT us Eileen Schroeder MD, PhD LAB BLOOD ORDERABLES Final Result Performing Organization Address City/State/[facility] [[email or web address]] Co de Phone Number [facility] [address] [place] [address], [facility] * Cardiac Cath Documents Scan (10/14/2024 [...] mL of GADOBUTROL 1 MMOL/ML [facility]TRAV[facility]OUS [facility] ([facility]) administered intravenously COMPARISON: CT 09/03/2024. Ultrasound [...] mL of GADOBUTROL 1 MMOL/ML INTRAVENOUS S[facility]INGE ([facility])administered intravenously COMPARISON: CT 09/03/2024. Ultrasound 10/07/2024. [...] BLOOD ORDERABLES Final Result Performing Organization Address City/State/[facility] [[email or web address]] Co de Phone Number [facility] [address] * (ABNORMAL) Hepatic Function Panel (10/13/2024 5:35 AM EDT) Total Bilirubin 6.5(H) 0.0 - 1.5 mg/dL 10/13/2024 6:30 AM EDT [facility] Bilirubin, Direct 3.53(H) 0.00 - 0.40 mg/dL 10/13/2024 6:30 AM EDT [facility] AST 42(H) 13 - 39 U/L 10/13/2024 6:30 AM EDT [facility] ALT 19 7 - 52 U/L 10/13/2024 6:30 AM EDT [facility] Alkaline Phosphatase 108 36 - 125 U/L 10/13/2024 6:30 AM EDT [facility] Total Protein 4.4(L) 6.4 - 8.9 g/dL 10/13/2024 6:30 AM EDT [facility] Albumin 3.1(L) 3.5 - 5.7 g/dL 10/13/2024 6:30 AM EDT [facility] Bilirubin, Indirect 2.97(H) 0.00 - 1.10 mg/dL 10/13/2024 6:30 AM EDT [facility] Plasma 10/13/2024 5:35 AM EDT 10/13/2024 5:52 AM EDT Eileen Schroeder MD, PhD LAB BLOOD ORDERABLES Final Result Performing Organization Address City/[facility]/ZIP Co de Phone Number [facility] [address] * Magnesium (10/13/2024 5:35 AM EDT) Magnesium 2.0 1.5 - 2.5 mg/dL 10/13/2024 6:30 AM EDT [facility] Plasma 10/13/2024 5:35 AM EDT 10/13/2024 5:52 AM EDT Eileen Schroeder MD, PhD LAB BLOOD ORDERABLES Final Result Performing Organization Address [facility] de Phone Number [facility] [address] * (ABNORMAL) Renal Function Panel w/EGFR (10/13/2024 5:35 AM EDT) Sodium 134 133 - 146 mmol/L 10/13/2024 6:30 AM EDT [facility] Potassium 3.7 3.5 - 5.3 mmol/L 10/13/2024 6:30 AM EDT [facility] Chloride 109 98 - 110 mmol/L 10/13/2024 6:30 AM EDT [facility] CO2 14(L) 21 - 33 mmol/L 10/13/2024 6:30 AM EDT [facility] Anion Gap 11 3 - 16 mmol/L 10/13/2024 6:30 AM EDT [facility] BUN 54(H) 7 - 25 mg/dL 10/13/2024 6:30 AM EDT [facility] Creatinine 2.99(H) 0.60 - 1.30 mg/dL 10/13/2024 6:30 AM EDT [facility] Glucose 116(H) 70 - 100 mg/dL 10/13/2024 6:30 AM EDT [facility] Calcium 8.3(L) 8.6 - 10.3 mg/dL 10/13/2024 6:30 AM EDT [facility] Phosphorus 4.5 2.1 - 4.7 mg/dL 10/13/2024 6:30 AM EDT [facility] Albumin 3.1(L) 3.5 - 5.7 g/dL 10/13/2024 6:30 AM EDT [facility] Osmolality, Calculated 294 278 - 305 mOsm/kg 10/13/2024 6:30 AM EDT [facility] EGFR 26 10/13/2024 6:30 AM EDT [facility] Comment:As of 2021, the estimated GFR [...] MD, PhD LAB BLOOD ORDERABLES Final Result [facility] [address] [place] [address], [facility] * (ABNORMAL) CBC (10/13/2024 5:35 AM EDT) WBC 4.7 3.8 - 10.8 10E3/uL 10/13/2024 6:22 AM EDT [facility] RBC 2.06(L) 4.20 - 5.80 10E6/uL 10/13/2024 6:22 AM EDT [facility] Hemoglobin 7.4(L) 13.2 - 17.1 g/dL 10/13/2024 6:22 AM EDT [facility] Hematocrit 21.7(L) 38.5 - 50.0 % 10/13/2024 6:22 AM EDT [facility] MCV 105.4(H) 80.0 - 100.0 fL 10/13/2024 6:22 AM EDT [facility] MCH 35.9(H) 27.0 - 33.0 pg 10/13/2024 6:22 AM EDT [facility] MCHC 34.0 32.0 - 36.0 g/dL 10/13/2024 6:22 AM EDT [facility] RDW 18.5(H) 11.0 - 15.0 % 10/13/2024 6:22 AM EDT [facility] Platelets 35(L) 140 - 400 10E3/uL 10/13/2024 6:22 AM EDT [facility] Comment: CNV Specimen checked for clots. None detected. MPV 8.4 7.5 - 11.5 fL 10/13/2024 6:22 AM EDT [facility] Whole Blood 10/13/2024 5:35 AM EDT 10/13/2024 5:53 AM EDT us Eileen Schroeder MD, PhD LAB BLOOD ORDERABLES Final Result [facility] [address] * (ABNORMAL) Ammonia (10/13/2024 5:35 AM EDT) Ammonia 203(HH) 27 - 90 ug/dL 10/13/2024 7:16 AM EDT [facility] Comment: HEMOLYSIS EVIDENT. RESULTS MAY BE INFLUENCED. Critical Result [id number] Called to and read back by: KEY MELO RN at: 10/13/2024 07:15:55 by:NISREEN Plasma 10/13/2024 5:35 AM EDT 10/13/2024 6:19 AM EDT us Magenkaren Bangff DO LAB BLOOD ORDERABLES Final Resul t Performing Organization Address City/[facility]/ZIP Co de Phone Number [facility] [address] * CARISA Rhythm Strip - Scan (10/12/2024 10:30 PM EDT) us Scanning Uchhim SCAN DOCS - NO RESULTS Final Res ult * (ABNORMAL) Protime-INR (10/12/2024 5:44 AM EDT) Protime 25.7(H) 12.1 - 15.1 seconds 10/12/2024 6:12 AM EDT [facility] INR 2.3(H) 0.9 - 1.1 10/12/2024 6:12 AM EDT [facility] Comment: RECOMMENDED THERAPEUTIC RANGES USING INR : Stable oral anticoagulant therapy: 2.0 - 3.0 Mechanical prosthetic heart valve: 2.5 - 3.5 Recurrent acute myocardial infarction: 2.5 - 3.5 Plasma 10/12/2024 5:44 AM EDT 10/12/2024 5:58 AM EDT Eileen Schroeder MD, PhD LAB BLOOD ORDERABLES Final Result Performing Organization Address [facility] [[email or web address]] Co de Phone Number [facility] [address] * (ABNORMAL) Hepatic Function Panel (10/12/2024 5:44 AM EDT) Total Bilirubin 6.5(H) 0.0 - 1.5 mg/dL 10/12/2024 6:29 AM EDT [facility] Bilirubin, Direct 3.64(H) 0.00 - 0.40 mg/dL 10/12/2024 6:29 AM EDT [facility] AST 40(H) 13 - 39 U/L 10/12/2024 6:29 AM EDT [facility] ALT 19 7 - 52 U/L 10/12/2024 6:29 AM EDT [facility] Alkaline Phosphatase 99 36 - 125 U/L 10/12/2024 6:29 AM EDT [facility] Total Protein 4.2(L) 6.4 - 8.9 g/dL 10/12/2024 6:29 AM EDT [facility] Albumin 3.1(L) 3.5 - 5.7 g/dL 10/12/2024 6:29 AM EDT [facility] Bilirubin, Indirect 2.86(H) 0.00 - 1.10 mg/dL 10/12/2024 6:29 AM EDT [facility] Plasma 10/12/2024 5:44 AM EDT 10/12/2024 5:58 AM EDT Eileen Schroeder MD, PhD LAB BLOOD ORDERABLES Final Result Performing Organization Address [facility] [[email or web address]] Co de Phone Number [facility] [address] * Magnesium (10/12/2024 5:44 AM EDT) Magnesium 1.9 1.5 - 2.5 mg/dL 10/12/2024 6:29 AM EDT [facility] Plasma 10/12/2024 5:44 AM EDT 10/12/2024 5:58 AM EDT Eileen Schroeder MD, PhD LAB BLOOD ORDERABLES Final Result Performing Organization Address [facility]/ZIP Co de Phone Number [facility] [address] * (ABNORMAL) Renal Function Panel w/EGFR (10/12/2024 5:44 AM EDT) Sodium 135 133 - 146 mmol/L 10/12/2024 6:29 AM EDT [facility] Potassium 3.7 3.5 - 5.3 mmol/L 10/12/2024 6:29 AM EDT [facility] Chloride 109 98 - 110 mmol/L 10/12/2024 6:29 AM EDT [facility] CO2 17(L) 21 - 33 mmol/L 10/12/2024 6:29 AM EDT [facility] Anion Gap 9 3 - 16 mmol/L 10/12/2024 6:29 AM EDT [facility] BUN 52(H) 7 - 25 mg/dL 10/12/2024 6:29 AM EDT [facility] Creatinine 2.94(H) 0.60 - 1.30 mg/dL 10/12/2024 6:29 AM EDT [facility] Glucose 121(H) 70 - 100 mg/dL 10/12/2024 6:29 AM EDT [facility] Calcium 8.5(L) 8.6 - 10.3 mg/dL 10/12/2024 6:29 AM EDT [facility] Phosphorus 4.6 2.1 - 4.7 mg/dL 10/12/2024 6:29 AM EDT [facility] Albumin 3.1(L) 3.5 - 5.7 g/dL 10/12/2024 6:29 AM EDT [facility] Osmolality, Calculated 295 278 - 305 mOsm/kg 10/12/2024 6:29 AM EDT [facility] EGFR 27 10/12/2024 6:29 AM EDT [facility] Comment:As of 2021, the estimated GFR [...] MD, PhD LAB BLOOD ORDERABLES Final Result [facility] [address] [employer] [facility] [place] [id number], [facility] * (ABNORMAL) CBC (10/12/2024 5:44 AM EDT) WBC 3.3(L) 3.8 - 10.8 10E3/uL 10/12/2024 7:06 AM EDT [facility] RBC 1.95(L) 4.20 - 5.80 10E6/uL 10/12/2024 7:06 AM EDT [facility] Hemoglobin 7.2(L) 13.2 - 17.1 g/dL 10/12/2024 7:06 AM EDT [facility] Hematocrit 19.7(L) 38.5 - 50.0 % 10/12/2024 7:06 AM EDT [facility] MCV 101.2(H) 80.0 - 100.0 fL 10/12/2024 7:06 AM EDT [facility] MCH 37.0(H) 27.0 - 33.0 pg 10/12/2024 7:06 AM EDT [facility] MCHC 36.5(H) 32.0 - 36.0 g/dL 10/12/2024 7:06 AM EDT [facility] RDW 17.6(H) 11.0 - 15.0 % 10/12/2024 7:06 AM EDT [facility] Platelets 30(L) 140 - 400 10E3/uL 10/12/2024 7:06 AM EDT [facility] Comment: Specimen checked for clots. None detected. Slide Reviewed for PLT Clumps. None Seen. Platelet Estimate Decreased 10/12/2024 7:06 AM EDT [facility] MPV 8.3 7.5 - 11.5 fL 10/12/2024 7:06 AM EDT [facility] Whole Blood 10/12/2024 5:44 AM EDT 10/12/2024 5:58 AM EDT Narrative [facility] - 10/12/2024 7:06 AM EDT Peripheral blood smear was scanned per review criteria approved by the laboratory medical technologist. us Eileen Schroeder MD, PhD LAB BLOOD ORDERABLES Final Result Performing Organization Address [facility]/ZIP Co de Phone Number [facility] [address] * CARISA Rhythm Strip - Scan (10/11/2024 10:04 PM EDT) us Scanning Uchhim SCAN DOCS - NO RESULTS Final Res ult * (ABNORMAL) Protime-INR (10/11/2024 3:02 AM EDT) Protime 26.8(H) 12.1 - 15.1 seconds 10/11/2024 3:30 AM EDT [facility] INR 2.4(H) 0.9 - 1.1 10/11/2024 3:30 AM EDT [facility] Comment: RECOMMENDED THERAPEUTIC RANGES USING INR : Stable oral anticoagulant therapy: 2.0 - 3.0 Mechanical prosthetic heart valve: 2.5 - 3.5 Recurrent acute myocardial infarction: 2.5 - 3.5 Plasma 10/11/2024 3:02 AM EDT 10/11/2024 3:08 AM EDT Eileen Schroeder MD, PhD LAB BLOOD ORDERABLES Final Result Performing Organization Address [facility] [[email or web address]] Co de Phone Number [facility] [address] * (ABNORMAL) Hepatic Function Panel (10/11/2024 3:02 AM EDT) Total Bilirubin 7.3(H) 0.0 - 1.5 mg/dL 10/11/2024 3:38 AM EDT [facility] Bilirubin, Direct 3.85(H) 0.00 - 0.40 mg/dL 10/11/2024 3:38 AM EDT [facility] AST 39 13 - 39 U/L 10/11/2024 3:38 AM EDT [facility] ALT 20 7 - 52 U/L 10/11/2024 3:38 AM EDT [facility] Alkaline Phosphatase 88 36 - 125 U/L 10/11/2024 3:38 AM EDT [facility] Total Protein 4.5(L) 6.4 - 8.9 g/dL 10/11/2024 3:38 AM EDT [facility] Albumin 3.3(L) 3.5 - 5.7 g/dL 10/11/2024 3:38 AM EDT [facility] Bilirubin, Indirect 3.45(H) 0.00 - 1.10 mg/dL 10/11/2024 3:38 AM EDT [facility] Plasma 10/11/2024 3:02 AM EDT 10/11/2024 3:08 AM EDT Eileen Schroeder MD, PhD LAB BLOOD ORDERABLES Final Result Performing Organization Address [facility] [[email or web address]] Co de Phone Number [facility] [address] * Magnesium (10/11/2024 3:02 AM EDT) Magnesium 2.0 1.5 - 2.5 mg/dL 10/11/2024 3:38 AM EDT [facility] Plasma 10/11/2024 3:02 AM EDT 10/11/2024 3:08 AM EDT Eileen Schroeder MD, PhD LAB BLOOD ORDERABLES Final Result Performing Organization Address [facility]/ZIP Co de Phone Number [facility] [address] * (ABNORMAL) Renal Function Panel w/EGFR (10/11/2024 3:02 AM EDT) Sodium 134 133 - 146 mmol/L 10/11/2024 3:38 AM EDT [facility] Potassium 3.6 3.5 - 5.3 mmol/L 10/11/2024 3:38 AM EDT [facility] Chloride 108 98 - 110 mmol/L 10/11/2024 3:38 AM EDT [facility] CO2 16(L) 21 - 33 mmol/L 10/11/2024 3:38 AM EDT [facility] Anion Gap 10 3 - 16 mmol/L 10/11/2024 3:38 AM EDT [facility] BUN 49(H) 7 - 25 mg/dL 10/11/2024 3:38 AM EDT [facility] Creatinine 2.77(H) 0.60 - 1.30 mg/dL 10/11/2024 3:38 AM EDT [facility] Glucose 112(H) 70 - 100 mg/dL 10/11/2024 3:38 AM EDT [facility] Calcium 8.9 8.6 - 10.3 mg/dL 10/11/2024 3:38 AM EDT [facility] Phosphorus 3.5 2.1 - 4.7 mg/dL 10/11/2024 3:38 AM EDT [facility] Albumin 3.3(L) 3.5 - 5.7 g/dL 10/11/2024 3:38 AM EDT [facility] Osmolality, Calculated 292 278 - 305 mOsm/kg 10/11/2024 3:38 AM EDT [facility] EGFR 29 10/11/2024 3:38 AM EDT [facility] Comment:As of 2021, the estimated GFR [...] MD, PhD LAB BLOOD ORDERABLES Final Result [facility] [address] * (ABNORMAL) CBC (10/11/2024 3:02 AM EDT) WBC 4.0 3.8 - 10.8 10E3/uL 10/11/2024 3:55 AM EDT [facility] RBC 2.11(L) 4.20 - 5.80 10E6/uL 10/11/2024 3:55 AM EDT [facility] Hemoglobin 7.7(L) 13.2 - 17.1 g/dL 10/11/2024 3:55 AM EDT [facility] Hematocrit 21.2(L) 38.5 - 50.0 % 10/11/2024 3:55 AM EDT [facility] MCV 100.5(H) 80.0 - 100.0 fL 10/11/2024 3:55 AM EDT [facility] MCH 36.4(H) 27.0 - 33.0 pg 10/11/2024 3:55 AM EDT [facility] MCHC 36.2(H) 32.0 - 36.0 g/dL 10/11/2024 3:55 AM EDT [facility] RDW 17.9(H) 11.0 - 15.0 % 10/11/2024 3:55 AM EDT [facility] Platelets 32(L) 140 - 400 10E3/uL 10/11/2024 3:55 AM EDT [facility] Comment: Specimen checked for clots. None detected. Slide Reviewed for PLT Clumps. None Seen. Platelet Estimate Decreased 10/11/2024 3:55 AM EDT [facility] MPV 8.1 7.5 - 11.5 fL 10/11/2024 3:55 AM EDT [facility] Whole Blood 10/11/2024 3:02 AM EDT 10/11/2024 3:08 AM EDT Narrative [facility] - 10/11/2024 3:55 AM EDT Peripheral blood smear was scanned per review criteria approved by the laboratory medical technologist. us Eileen Schroeder MD, PhD LAB BLOOD ORDERABLES Final Result [facility] [address] * Vancomycin, random (10/11/2024 3:02 AM EDT) Vancomycin Random 13.4 ug/mL 10/11/2024 3:37 AM EDT [facility] Comment:Reference range not established for this test. Plasma 10/11/2024 3:02 AM EDT 10/11/2024 3:08 AM EDT us Jodi Ortiz PharmD LAB BLOOD ORDERABLES Final Result [facility] [address] * IR Paracentesis incl imaging guide [...] diagnostic and therapeutic paracentesis. Bakari Wahl CNP, [employer] Professor Procedure and Findings: The procedure was [...] for diagnostic andtherapeutic paracentesis. Bakari Wahl CNP, [employer] Professor Procedure and Findings: The procedure was [...] Clarity, Fluid Clear 10/10/2024 5:29 PM EDT [facility] Neutrophil %, Fluid 9 % 10/10/2024 5:29 PM EDT [facility] Lymphocytes %, Fluid 13 % 10/10/2024 5:29 PM EDT [facility] Mesothelial %, Fluid 6 % 10/10/2024 5:29 PM EDT [facility] Macrophage %, Fluid 72 % 10/10/2024 5:29 PM EDT [facility] RBC, Fluid 2,662 /uL 10/10/2024 4:41 PM EDT [facility] Total Nucleated Cells, Fluid 89 /uL 10/10/2024 4:41 PM EDT [facility] Comment:Total Nucleated Cell s represent WBCs and other nucleated cells in the fluid such as lining cells. Ascitic Fluid ABDOMEN / Unknown 1:51 PM EDT 10/10/2024 3:56 PM EDT us Gerri Peterson MD BODY FLUIDS AND STOOLS ORDERABL ES Final Result [facility] [address] [place], [place] [id number] [place] [address] * Body Fluid Culture plus Stain (10/10/2024 1:51 PM EDT) Gram Stain Result Cytospin Results: [facility] Gram Stain Result Polymorphonuclear Leukocytes Seen; [facility] Gram Stain Result No Organisms Seen; [facility] Culture Result No Growth After 5 Days [facility] Fluid ABDOMEN / Unknown 10/10/2024 1:51 PM EDT 10/10/2024 3:56 PM EDT us Gerri Peterson MD MICROBIOLOGY - GENERAL ORDERABL ES Final Result Performing Organization Address City/State/[facility] [[email or web address]] Co de Phone Number [facility] [address] * UPPER GI ENDOSCOPY (10/10/2024 11:48 AM EDT) 10/10/2024 11:4 8 AM EDT Narrative [facility] - 10/10/2024 12:34 PM EDT [id number] Procedure Date: 10/10/2024 11:48 AM Patient Name: Julien Gilbert Date of : 1985 Admit Type: Inpatient Age: 39 Gender: Male Note Status: Finalized Attending MD: Lino Soto MD, [id number] Procedure: Upper GI endoscopy Indications: Gastroesopahgeal variceal [...] verified by the physician, the nurse, the christmas tree grader and the electroneurodiagnostic technician in the pre-procedure area in the [...] to hypotension Procedure Code(s): --- Professional --- 48017, GC, Esophagogastroduodenoscopy, flexible, transoral; diagnostic, including collection of specimen(s) by brushing or washing, when performed (separate procedure) Diagnosis Code(s): --- Professional --- I85.00, Esophageal varices without bleeding K76.6, Portal hypertension K31.89, Other diseases of stomach and duodenum CPT copyright 2022 [employer]. All rights reserved. The codes documented in this report are preliminary and upon insurance coder review may be revised to meet [...] In: 12:10:16 PM Scope Out: 12:17:[address] [place] [address], [id number] us Provider Not In System PROCEDURE/MINOR SURGICAL ORDERABLES Final Result [facility] * (ABNORMAL) Protime-INR (10/10/2024 5:23 AM EDT) Protime 23.9(H) 12.1 - 15.1 seconds 10/10/2024 6:11 AM EDT [facility] INR 2.1(H) 0.9 - 1.1 10/10/2024 6:11 AM EDT [facility] Comment: RECOMMENDED THERAPEUTIC RANGES USING INR : Stable oral anticoagulant therapy: 2.0 - 3.0 Mechanical prosthetic heart valve: 2.5 - 3.5 Recurrent acute myocardial infarction: 2.5 - 3.5 Plasma 10/10/2024 5:23 AM EDT 10/10/2024 5:50 AM EDT us Eileen Schroeder MD, PhD LAB BLOOD ORDERABLES Final Result Performing Organization Address [facility]/ZIP Co de Phone Number [facility] [address] [place] [address], [facility] * (ABNORMAL) Hepatic Function Panel (10/10/2024 5:23 AM EDT) Total Bilirubin 8.6(H) 0.0 - 1.5 mg/dL 10/10/2024 6:21 AM EDT [facility] Bilirubin, Direct 4.65(H) 0.00 - 0.40 mg/dL 10/10/2024 6:21 AM EDT [facility] AST 40(H) 13 - 39 U/L 10/10/2024 6:21 AM EDT [facility] ALT 22 7 - 52 U/L 10/10/2024 6:21 AM EDT [facility] Alkaline Phosphatase 118 36 - 125 U/L 10/10/2024 6:21 AM EDT [facility] Total Protein 4.6(L) 6.4 - 8.9 g/dL 10/10/2024 6:21 AM EDT [facility] Albumin 3.3(L) 3.5 - 5.7 g/dL 10/10/2024 6:21 AM EDT [facility] Bilirubin, Indirect 3.95(H) 0.00 - 1.10 mg/dL 10/10/2024 6:21 AM EDT [facility] Plasma 10/10/2024 5:23 AM EDT 10/10/2024 5:50 AM EDT us Eileen Schroeder MD, PhD LAB BLOOD ORDERABLES Final Result [facility] [address] [employer] [facility]. [address] * Magnesium (10/10/2024 5:23 AM EDT) Magnesium 1.9 1.5 - 2.5 mg/dL 10/10/2024 6:21 AM EDT [facility] Plasma 10/10/2024 5:23 AM EDT 10/10/2024 5:50 AM EDT us Eileen Schroeder MD, PhD LAB BLOOD ORDERABLES Final Result [facility] [address] * (ABNORMAL) Renal Function Panel w/EGFR (10/10/2024 5:23 AM EDT) Sodium 135 133 - 146 mmol/L 10/10/2024 6:21 AM EDT [facility] Potassium 3.6 3.5 - 5.3 mmol/L 10/10/2024 6:21 AM EDT [facility] Chloride 108 98 - 110 mmol/L 10/10/2024 6:21 AM EDT [facility] CO2 17(L) 21 - 33 mmol/L 10/10/2024 6:21 AM EDT [facility] Anion Gap 10 3 - 16 mmol/L 10/10/2024 6:21 AM EDT [facility] BUN 53(H) 7 - 25 mg/dL 10/10/2024 6:21 AM EDT [facility] Creatinine 2.85(H) 0.60 - 1.30 mg/dL 10/10/2024 6:21 AM EDT [facility] Glucose 113(H) 70 - 100 mg/dL 10/10/2024 6:21 AM EDT [facility] Calcium 9.0 8.6 - 10.3 mg/dL 10/10/2024 6:21 AM EDT [facility] Phosphorus 3.3 2.1 - 4.7 mg/dL 10/10/2024 6:21 AM EDT [facility] Albumin 3.3(L) 3.5 - 5.7 g/dL 10/10/2024 6:21 AM EDT [facility] Osmolality, Calculated 295 278 - 305 mOsm/kg 10/10/2024 6:21 AM EDT [facility] EGFR 28 10/10/2024 6:21 AM EDT [facility] Comment:As of 2021, the estimated GFR [...] MD, PhD LAB BLOOD ORDERABLES Final Result [facility] [address] [place] [address], [facility] * (ABNORMAL) CBC (10/10/2024 5:23 AM EDT) WBC 5.1 3.8 - 10.8 10E3/uL 10/10/2024 6:14 AM EDT [facility] RBC 2.04(L) 4.20 - 5.80 10E6/uL 10/10/2024 6:14 AM EDT [facility] Hemoglobin 7.3(L) 13.2 - 17.1 g/dL 10/10/2024 6:14 AM EDT [facility] Hematocrit 20.6(L) 38.5 - 50.0 % 10/10/2024 6:14 AM EDT [facility] MCV 101.2(H) 80.0 - 100.0 fL 10/10/2024 6:14 AM EDT [facility] MCH 36.0(H) 27.0 - 33.0 pg 10/10/2024 6:14 AM EDT [facility] MCHC 35.5 32.0 - 36.0 g/dL 10/10/2024 6:14 AM EDT [facility] RDW 17.6(H) 11.0 - 15.0 % 10/10/2024 6:14 AM EDT [facility] Platelets 39(L) 140 - 400 10E3/uL 10/10/2024 6:14 AM EDT [facility] Comment: CNV Specimen checked for clots. None detected. MPV 9.8 7.5 - 11.5 fL 10/10/2024 6:14 AM EDT [facility] Whole Blood 10/10/2024 5:23 AM EDT 10/10/2024 5:51 AM EDT us Eileen Schroeder MD, PhD LAB BLOOD ORDERABLES Final Result [facility] [address] * Vancomycin, random (10/10/2024 5:23 AM EDT) Vancomycin Random 16.4 ug/mL 10/10/2024 6:22 AM EDT [facility] Comment:Reference range not established for this test. Plasma 10/10/2024 5:23 AM EDT 10/10/2024 5:51 AM EDT us Jodi FreireD LAB BLOOD ORDERABLES Final Result [facility] [address] * ECHO STRESS W/ CONTRAST (10/09/2024 4:37 PM EDT) Anatomical Region Laterality Modality Chest Ultrasound 10/09/2024 2:40 PM EDT Narrative 10/09/2024 6:45 PM EDT * [facility]* [address] [place] [address] [id number] Stress Echocardiogram Patient: Julien Gilbert Room: 8142 Height: 76in MR Number: [id number] : 1985 Weight: 262lb Account: [id number] Gender: M BP: 125 / 77 Study Date: 10/09/2024 Age: 39 BSA: 2.48m^2 Referring physician: Gerri Peterson Interpreting physician: Tonya Henriquez MD FELLOW Lisa Jha MD PERFORMING Tonya Henriquez MD SAP SECURITY ARCHITECT [employer] REFERRING Gerri Peterson ATTENDING [...] was augmented by the addition of hand generator rebuilder and leg lifts. The infusion was terminated [...] at baseline or with provocation, shows no ipkrl-qk-ufpn atrial level shunt. - Pulmonary arteries: Systolic [...] at baseline or with provocation, shows no uqhct-fo-pzft atrial level shunt. Pulmonary artery: - Systolic [...] at baseline or with provocation, shows no ddurl-cs-aief atrial level shunt. Pericardium: - There is [...] peak heart rate and blood pressure was 55541ue Hg/min. Stress testing did not produce any [...] Reviewed and confirmed by Tonya Henriquez MD [id number] Procedure Note Tonya Henriquez MD - 10/09/2024 * [facility]* [address] [place] [address] Stress Echocardiogram Patient: Jluien Gilbert Room: 8142 Height: 76in MR Number: [id number] : 1985 Weight: 262lb Account: [id number] Gender: M BP: 125 / 77 Study Date: 10/09/2024 Age: 39 BSA: 2.48m^2 Referring physician: Gerri Peterson Interpreting physician: Tonya Henriquez MD FELLOW Lisa Jha MD PERFORMING Tonya Henriquez MD SAP SECURITY ARCHITECT [employer] REFERRING Gerri Peterson ATTENDING Fouzia Rene ADMITTING Angie Blanchard Procedure:STRESS ECHO - PHARMACOLOGIC Order: Indications: Pre-Operative Clearance (Z01.818). PMH: EtOH Use Disorder. Risk factors: Hypertension. Dyslipidemia. Study data: Height: 76in. 193cm. Weight: 262lb. 118.8kg. The previousstudy was not available, so comparison was made to the report of 07/15/2024. Study status: Routine. Procedure[facility]. Intravenous access [...] was augmented by the addition of hand generator rebuilder and leg lifts. The infusion was terminated [...] at baseline or with provocation, shows no fttpy-gx-kpls atrial level shunt. - Pulmonary arteries: Systolic [...] study at baseline or with provocation, showsno sqlgn-oi-cssf atrial level shunt. Pulmonary artery: - Systolic [...] at baseline or with provocation, shows no cghbz-tn-tubj atrial level shunt. Pericardium: - There is [...] heart rate). The maximal predicted heart rate [id number]. The target heart rate was 152bpm. The target heart rate was achieved.The heart rate response to stress is normal. There is a normal resting blood pressure with an appropriate response to stress. The rate-pressureproduct for the peak heart rate and blood pressure was 30513kt Hg/min. Stress testing did not produce any [...] Reviewed and confirmed by Tonya Henriquez MD [id number] us Gerri Peterson MD CV ECHO ORDERABLES Final Result * (ABNORMAL) Renal Function Panel w/EGFR, STAT (10/09/2024 1:05 PM EDT) Sodium 134 133 - 146 mmol/L 10/09/2024 2:10 PM EDT [facility] Potassium 3.7 3.5 - 5.3 mmol/L 10/09/2024 2:10 PM EDT [facility] Chloride 105 98 - 110 mmol/L 10/09/2024 2:10 PM EDT [facility] CO2 17(L) 21 - 33 mmol/L 10/09/2024 2:10 PM EDT [facility] Anion Gap 12 3 - 16 mmol/L 10/09/2024 2:10 PM EDT [facility] BUN 53(H) 7 - 25 mg/dL 10/09/2024 2:10 PM EDT [facility] Creatinine 2.89(H) 0.60 - 1.30 mg/dL 10/09/2024 2:10 PM EDT [facility] Glucose 108(H) 70 - 100 mg/dL 10/09/2024 2:10 PM EDT [facility] Calcium 9.3 8.6 - 10.3 mg/dL 10/09/2024 2:10 PM EDT [facility] Phosphorus 3.4 2.1 - 4.7 mg/dL 10/09/2024 2:10 PM EDT [facility] Albumin 3.6 3.5 - 5.7 g/dL 10/09/2024 2:10 PM EDT [facility] Osmolality, Calculated 293 278 - 305 mOsm/kg 10/09/2024 2:10 PM EDT [facility] EGFR 27 10/09/2024 2:10 PM EDT [facility] Comment:As of 2021, the estimated GFR [...] MD, PhD LAB BLOOD ORDERABLES Final Result [facility] [address] * (ABNORMAL) Renal Function Panel w/EGFR, STAT (10/09/2024 8:14 AM EDT) Sodium 134 133 - 146 mmol/L 10/09/2024 8:47 AM EDT [facility] Potassium 3.4(L) 3.5 - 5.3 mmol/L 10/09/2024 8:47 AM EDT [facility] Chloride 107 98 - 110 mmol/L 10/09/2024 8:47 AM EDT [facility] CO2 17(L) 21 - 33 mmol/L 10/09/2024 8:47 AM EDT [facility] Anion Gap 10 3 - 16 mmol/L 10/09/2024 8:47 AM EDT [facility] BUN 54(H) 7 - 25 mg/dL 10/09/2024 8:47 AM EDT [facility] Creatinine 3.04(H) 0.60 - 1.30 mg/dL 10/09/2024 8:47 AM EDT [facility] Glucose 124(H) 70 - 100 mg/dL 10/09/2024 8:47 AM EDT [facility] Calcium 9.0 8.6 - 10.3 mg/dL 10/09/2024 8:47 AM EDT [facility] Phosphorus 3.5 2.1 - 4.7 mg/dL 10/09/2024 8:47 AM EDT [facility] Albumin 3.4(L) 3.5 - 5.7 g/dL 10/09/2024 8:47 AM EDT [facility] Osmolality, Calculated 294 278 - 305 mOsm/kg 10/09/2024 8:47 AM EDT [facility] EGFR 26 10/09/2024 8:47 AM EDT [facility] Comment:As of 2021, the estimated GFR [...] MD LAB BLOOD ORDERABLES Final Resu lt [facility] [address] * Prepare RBC, leukoreduced, 1 Units (10/09/2024 6:16 AM EDT) Product Code [id number] [facility] Unit Number [id number] [facility] Dispense Status Presumed Transfused_PT [facility] Blood Expiration Date [id number] [facility]LL Coding System [id number] [facility] Blood Bank Product us Eileen Schroeder [...] BLOOD ORDERABLES Final Result Performing Organization Address [facility]/ZIP Co de Phone Number [facility] [address] * (ABNORMAL) Hepatic Function Panel (10/09/2024 4:59 AM EDT) Total Bilirubin 9.0(H) 0.0 - 1.5 mg/dL 10/09/2024 6:42 AM EDT [facility] Bilirubin, Direct 4.60(H) 0.00 - 0.40 mg/dL 10/09/2024 6:42 AM EDT [facility] AST 38 13 - 39 U/L 10/09/2024 6:42 AM EDT [facility] ALT 18 7 - 52 U/L 10/09/2024 6:42 AM EDT [facility] Alkaline Phosphatase 122 36 - 125 U/L 10/09/2024 6:42 AM EDT [facility] Total Protein 4.8(L) 6.4 - 8.9 g/dL 10/09/2024 6:42 AM EDT [facility] Albumin 3.4(L) 3.5 - 5.7 g/dL 10/09/2024 6:42 AM EDT [facility] Bilirubin, Indirect 4.40(H) 0.00 - 1.10 mg/dL 10/09/2024 6:42 AM EDT [facility] Plasma 10/09/2024 4:59 AM EDT 10/09/2024 5:57 AM EDT Eileen Schroeder MD, PhD LAB BLOOD ORDERABLES Final Result Performing Organization Address City/[facility]/ZIP Co de Phone Number [facility] [address] * Magnesium (10/09/2024 4:59 AM EDT) Magnesium 1.8 1.5 - 2.5 mg/dL 10/09/2024 6:42 AM EDT [facility] Plasma 10/09/2024 4:59 AM EDT 10/09/2024 5:57 AM EDT Eileen Schroeder MD, PhD LAB BLOOD ORDERABLES Final Result Performing Organization Address [facility] [[email or web address]] Co de Phone Number [facility] [address] * (ABNORMAL) Renal Function Panel w/EGFR (10/09/2024 4:59 AM EDT) Sodium 134 133 - 146 mmol/L 10/09/2024 6:42 AM EDT [facility] Potassium 3.3(L) 3.5 - 5.3 mmol/L 10/09/2024 6:42 AM EDT [facility] Chloride 107 98 - 110 mmol/L 10/09/2024 6:42 AM EDT [facility] CO2 16(L) 21 - 33 mmol/L 10/09/2024 6:42 AM EDT [facility] Anion Gap 11 3 - 16 mmol/L 10/09/2024 6:42 AM EDT [facility] BUN 56(H) 7 - 25 mg/dL 10/09/2024 6:42 AM EDT [facility] Creatinine 2.98(H) 0.60 - 1.30 mg/dL 10/09/2024 6:42 AM EDT [facility] Glucose 112(H) 70 - 100 mg/dL 10/09/2024 6:42 AM EDT [facility] Calcium 9.0 8.6 - 10.3 mg/dL 10/09/2024 6:42 AM EDT [facility] Phosphorus 3.5 2.1 - 4.7 mg/dL 10/09/2024 6:42 AM EDT [facility] Albumin 3.4(L) 3.5 - 5.7 g/dL 10/09/2024 6:42 AM EDT [facility] Osmolality, Calculated 294 278 - 305 mOsm/kg 10/09/2024 6:42 AM EDT [facility] EGFR 26 10/09/2024 6:42 AM EDT [facility] Comment:As of 2021, the estimated GFR [...] MD, PhD LAB BLOOD ORDERABLES Final Result [facility] [address] [employer] [facility] [employer] [facility] [place] [address], [facility] * (ABNORMAL) CBC (10/09/2024 4:59 AM EDT) WBC 4.6 3.8 - 10.8 10E3/uL 10/09/2024 6:21 AM EDT [facility] RBC 2.17(L) 4.20 - 5.80 10E6/uL 10/09/2024 6:21 AM EDT [facility] Hemoglobin 8.0(L) 13.2 - 17.1 g/dL 10/09/2024 6:21 AM EDT [facility] Hematocrit 21.8(L) 38.5 - 50.0 % 10/09/2024 6:21 AM EDT [facility] MCV 100.5(H) 80.0 - 100.0 fL 10/09/2024 6:21 AM EDT [facility] MCH 36.7(H) 27.0 - 33.0 pg 10/09/2024 6:21 AM EDT [facility] MCHC 36.5(H) 32.0 - 36.0 g/dL 10/09/2024 6:21 AM EDT [facility] RDW 18.1(H) 11.0 - 15.0 % 10/09/2024 6:21 AM EDT [facility] Platelets 36(L) 140 - 400 10E3/uL 10/09/2024 6:21 AM EDT [facility] Comment:Specimen checked for clots. None detected. MPV 8.3 7.5 - 11.5 fL 10/09/2024 6:21 AM EDT [facility] Whole Blood 10/09/2024 4:59 AM EDT 10/09/2024 5:56 AM EDT us Eileen Schroeder MD, PhD LAB BLOOD ORDERABLES Final Result [facility] [address] [place], [place] [address] * Renal Tx Recipient (10/09/2024 4:59 AM EDT) Renal Transplant Recipient The request and specimen(s) for this test have been received and transported to the [facility] at [address] [place] [address]. The [facility] [place] will report results directly to the client. 10/09/2024 7:26 AM EDT [facility] Blood 10/09/2024 4:59 AM EDT 10/09/2024 7:26 AM EDT us Aaron Gonzalez MD LAB BLOOD ORDERABLES Final Resu lt [facility] [address] * Vancomycin, random (10/09/2024 4:59 AM EDT) Vancomycin Random 11.0 ug/mL 10/09/2024 6:33 AM EDT [facility] Comment:Reference range not established for this test. Plasma 10/09/2024 4:59 AM EDT 10/09/2024 5:56 AM EDT us Jodi Ortiz PharmD LAB BLOOD ORDERABLES Final Result Performing Organization Address [facility] [[email or web address]] Co de Phone Number [facility] [address] [facility]. [address] * (ABNORMAL) CBC (10/08/2024 5:52 PM EDT) WBC 5.6 3.8 - 10.8 10E3/uL 10/08/2024 6:52 PM EDT [facility] RBC 2.38(L) 4.20 - 5.80 10E6/uL 10/08/2024 6:52 PM EDT [facility] Hemoglobin 8.3(L) 13.2 - 17.1 g/dL 10/08/2024 6:52 PM EDT [facility] Hematocrit 24.6(L) 38.5 - 50.0 % 10/08/2024 6:52 PM EDT [facility] MCV 103.2(H) 80.0 - 100.0 fL 10/08/2024 6:52 PM EDT [facility] MCH 34.7(H) 27.0 - 33.0 pg 10/08/2024 6:52 PM EDT [facility] MCHC 33.6 32.0 - 36.0 g/dL 10/08/2024 6:52 PM EDT [facility] RDW 18.5(H) 11.0 - 15.0 % 10/08/2024 6:52 PM EDT [facility] Platelets 39(L) 140 - 400 10E3/uL 10/08/2024 6:52 PM EDT [facility] Comment:CNV MPV 8.1 7.5 - 11.5 fL 10/08/2024 6:52 PM EDT [facility] Whole Blood 10/08/2024 5:52 PM EDT 10/08/2024 6:45 PM EDT Eileen Schroeder MD, PhD LAB BLOOD ORDERABLES Final Result Performing Organization Address City/[facility]/ZIP Co de Phone Number [facility] [address] * Transfuse RBC Has consent been [...] Mumps IgG Positive 10/08/2024 11:39 AM EDT [facility] MUMPS IGG NUM 99.00(H) 0.0 - 8.9 U/mL 10/08/2024 11:39 AM EDT [facility] Rubella IgG Scr Positive 10/08/2024 11:40 AM EDT [facility] RUB NUM 4.15(H) 0.00 - 0.89 INDEX 10/08/2024 11:40 AM EDT [facility] Rubeola Ab, IgG Positive 10/08/2024 11:39 AM EDT [facility] RUB IGG NUM 273.00(H) 0.00 - 13.40 U/mL 10/08/2024 11:39 AM EDT [facility] Serum 10/08/2024 10:2 5 AM EDT 10/08/2024 10:49 AM EDT Narrative [facility] - 10/08/2024 11:40 AM EDT Presence of detectable measles virus IgG antibodies. A positive result generally indicates exposure to measles virus or previous vaccination. Presence of detectable mumps virus IgG antibodies. A positive result generally indicates past exposure to mumps virus or previous vaccination. Sample is considered positive for IgG antibodies to rubella virus. Result [facility] Gerri Peterson MD LAB BLOOD ORDERABLES Final Resu lt Performing Organization Address [facility] [[email or web address]] Co de Phone Number [facility] [address] [facility]. [address] * (ABNORMAL) Hemoglobin A1C (10/08/2024 10:25 AM EDT) [facility] Hemoglobin A1C 3.7(L) 4.0 - 5.6 % 10/09/2024 1:22 PM EDT [facility] Comment: Hemoglobin A1c Interpretation Guidelines: Normal: [...] ORDERABLES Final Resu lt Performing Organization Address [facility] de Phone Number [facility] [address] [facility]. [address] * (ABNORMAL) Vitamin D 25 Hydroxy (10/08/2024 10:25 AM EDT) Vit D, 25-Hydroxy 7.1(L) 30.0 - 100.0 ng/mL 10/08/2024 11:36 AM EDT [facility] Comment: Vitamin D deficiency has been defined by the [place] of [employer] (IOM) and an Endocrine Society [...] BLOOD ORDERABLES Final Resu lt [facility] [address] [facility] [place] [address], [facility] * Iron Studies (Iron + TIBC) [...] MD LAB BLOOD ORDERABLES Final Resu lt [facility] [address] * (ABNORMAL) Ferritin (10/08/2024 10:25 AM EDT) Ferritin 706.9(H) 23.9 - 336.2 ng/mL 10/08/2024 11:35 AM EDT [facility] Serum 10/08/2024 10:2 5 AM EDT 10/08/2024 10:49 AM EDT Gerri Peterson MD LAB BLOOD ORDERABLES Final Resu lt Performing Organization Address [facility]/ZIP Co de Phone Number [facility] [address] * QuantiFERON TB2 Ag (10/08/2024 10:25 AM EDT) QuantiFERON TB2 Ag Value 0.07 10/10/2024 10:41 AM EDT [facility] Plasma 10/08/2024 10:2 5 AM EDT 10/08/2024 11:05 AM EDT Gerri Peterson MD LAB BLOOD ORDERABLES Final Resu lt Performing Organization Address [facility]/ZIP Co de Phone Number [facility] [address] * QuantiFERON TB1 Ag (10/08/2024 10:25 AM EDT) QuantiFERON TB1 Ag Value 0.06 10/10/2024 10:41 AM EDT [facility] Plasma 10/08/2024 10:2 5 AM EDT 10/08/2024 11:05 AM EDT Gerri Peterson MD LAB BLOOD ORDERABLES Final Resu lt [facility] [address] * QuantiFERON Nil (10/08/2024 10:25 AM EDT) QuantiFERON Nil 0.06 10:41 AM EDT [facility] Plasma 10/08/2024 10:2 5 AM EDT 10/08/2024 11:05 AM EDT Gerri Peterson MD LAB BLOOD ORDERABLES Final Resu lt [facility] [address] * QuantiFERON Mitogen (10/08/2024 10:25 AM EDT) QuantiFERON Interpretation Negative Negative 10/10/2024 10:41 AM EDT [facility] Comment:Negative result geovanny cates M. tuberculosis infection is NOT likely. Negative results do not preclude tuberculosis infection (especially in immunosuppressed patients). Negative results have a TB antigen minus Nil value less than 0.35 IU/mL. In cases with high suspicion of disease, retesting or additional testing with medical evaluation may be useful. QuantiFERON Mitogen 4.87 10/10 10:41 AM EDT [facility] Plasma 10/08/2024 10:2 5 AM EDT 10/08/2024 11:05 AM EDT Narrative [facility] - 10/10/2024 10:41 AM EDT The [...] lt [facility] [address] * Reticulocyte Count, Auto (10/08/2024 7:41 AM EDT) Retic Ct Pct 1.35 0.50 - 2.00 % 10/08/2024 9:12 AM EDT [facility] Retic Ct Abs 26,190 25,000 - 90,000 /uL 10/08/2024 9:14 AM EDT [facility] Immature Retic Fract 0.37 0.09 - 0.56 10/08/2024 9:12 AM EDT [facility] Whole Blood 10/08/2024 7:41 AM EDT 10/08/2024 8:51 AM EDT us Angie Blanchard MD LAB BLOOD ORDERABLES Final Res ult Performing Organization Address [facility]/ZIP Co de Phone Number [facility] [address] [facility]. [address] * (ABNORMAL) Haptoglobin (10/08/2024 7:41 AM EDT) Pathologist [facility] Haptoglobin <30(L) 44 - 215 mg/dL 10/08/2024 8:53 AM EDT [facility] Serum 10/08/2024 7:41 AM EDT 10/08/2024 7:51 AM EDT us Eileen Schroeder MD, PhD LAB BLOOD ORDERABLES Final Result [facility] [address] * (ABNORMAL) CBC - Post Transfusion (10/08/2024 7:41 AM EDT) WBC 3.7(L) 3.8 - 10.8 10E3/uL 10/08/2024 8:34 AM EDT [facility] RBC 1.94(L) 4.20 - 5.80 10E6/uL 10/08/2024 8:34 AM EDT [facility] Hemoglobin 7.1(L) 13.2 - 17.1 g/dL 10/08/2024 8:34 AM EDT [facility] Hematocrit 20.0(L) 38.5 - 50.0 % 10/08/2024 8:34 AM EDT [facility] MCV 103.1(H) 80.0 - 100.0 fL 10/08/2024 8:34 AM EDT [facility] MCH 36.5(H) 27.0 - 33.0 pg 10/08/2024 8:34 AM EDT [facility] MCHC 35.4 32.0 - 36.0 g/dL 10/08/2024 8:34 AM EDT [facility] RDW 17.2(H) 11.0 - 15.0 % 10/08/2024 8:34 AM EDT [facility] Platelets 37(L) 140 - 400 10E3/uL 10/08/2024 8:34 AM EDT [facility] Comment: Specimen checked for clots. None detected. Slide Reviewed for PLT Clumps. None Seen. _Platelet Morphology Normal _Platelets Appear Decreased MPV 8.7 7.5 - 11.5 fL 10/08/2024 8:34 AM EDT [facility] Whole Blood 10/08/2024 7:41 AM EDT 10/08/2024 7:52 AM EDT [facility] - 10/08/2024 8:34 AM EDT Post-transfusion Eileen Schroeder MD, PhD LAB BLOOD ORDERABLES Final Result [facility] [address] [place] [address], [facility] * Antibody Screen (10/08/2024 7:41 AM EDT) Antibody Screen Negative 10/08/2024 8:26 AM EDT [facility] Blood 10/08/2024 7:41 AM EDT 10/08/2024 7:57 AM EDT [facility] - 10/08/2024 8:32 AM EDT Testing performed by [facility] Transfusion Service Eileen Schroeder MD, PhD BLOOD BANK TEST ORDER PAL Final Result Performing Organization Address City/[facility]/ZIP Co de Phone Number [facility] [address] * ABO/Rh (10/08/2024 7:41 AM EDT) ABO Grouping O 10/08/2024 8:14 AM EDT [facility] Rh Type Positive 10/08/2024 8:14 AM EDT [facility] Blood 10/08/2024 7:41 AM EDT 10/08/2024 7:57 AM EDT Eileen Schroeder MD, PhD BLOOD BANK TEST ORDER PAL Final Result Performing Organization [facility] [[email or web address]] Co de Phone Number [facility] [address] [facility] [address] * (ABNORMAL) Lactate dehydrogenase (10/08/2024 5:36 AM EDT) LD 102(L) 110 - 270 U/L 10/08/2024 8:20 AM EDT [facility] Plasma 10/08/2024 5:36 AM EDT 10/08/2024 7:58 AM EDT Angie Blanchard MD LAB BLOOD ORDERABLES Final Res ult [facility] [address] * (ABNORMAL) Protime-INR (10/08/2024 5:36 AM EDT) Protime 26.9(H) 12.1 - 15.1 seconds 10/08/2024 6:11 AM EDT [facility] INR 2.4(H) 0.9 - 1.1 10/08/2024 6:11 AM EDT [facility] Comment: RECOMMENDED THERAPEUTIC RANGES USING INR : Stable oral anticoagulant therapy: 2.0 - 3.0 Mechanical prosthetic heart valve: 2.5 - 3.5 Recurrent acute myocardial infarction: 2.5 - 3.5 Plasma 10/08/2024 5:36 AM EDT 10/08/2024 5:52 AM EDT Eileen Schroeder MD, PhD LAB BLOOD ORDERABLES Final Result Performing Organization Address [facility] [[email or web address]] Co de Phone Number [facility] [address] * (ABNORMAL) Hepatic Function Panel (10/08/2024 5:36 AM EDT) Total Bilirubin 7.7(H) 0.0 - 1.5 mg/dL 10/08/2024 6:25 AM EDT [facility] Bilirubin, Direct 4.28(H) 0.00 - 0.40 mg/dL 10/08/2024 6:25 AM EDT [facility] AST 34 13 - 39 U/L 10/08/2024 6:25 AM EDT [facility] ALT 16 7 - 52 U/L 10/08/2024 6:25 AM EDT [facility] Alkaline Phosphatase 103 36 - 125 U/L 10/08/2024 6:25 AM EDT [facility] Total Protein 4.7(L) 6.4 - 8.9 g/dL 10/08/2024 6:25 AM EDT [facility] Albumin 3.5 3.5 - 5.7 g/dL 10/08/2024 6:25 AM EDT [facility] Bilirubin, Indirect 3.42(H) 0.00 - 1.10 mg/dL 10/08/2024 6:25 AM EDT [facility] Plasma 10/08/2024 5:36 AM EDT 10/08/2024 5:52 AM EDT Eileen Schroeder MD, PhD LAB BLOOD ORDERABLES Final Result Performing Organization Address City/[facility]/ZIP Co de Phone Number [facility] [address] [facility]. [address] * Magnesium (10/08/2024 5:36 AM EDT) Magnesium 1.9 1.5 - 2.5 mg/dL 10/08/2024 6:25 AM EDT [facility] Plasma 10/08/2024 5:36 AM EDT 10/08/2024 5:52 AM EDT us Eileen Schroeder MD, PhD LAB BLOOD ORDERABLES Final Result [facility] [address] * (ABNORMAL) Renal Function Panel w/EGFR (10/08/2024 5:36 AM EDT) Sodium 135 133 - 146 mmol/L 10/08/2024 6:25 AM EDT [facility] Potassium 3.2(L) 3.5 - 5.3 mmol/L 10/08/2024 6:25 AM EDT [facility] Chloride 106 98 - 110 mmol/L 10/08/2024 6:25 AM EDT [facility] CO2 17(L) 21 - 33 mmol/L 10/08/2024 6:25 AM EDT [facility] Anion Gap 12 3 - 16 mmol/L 10/08/2024 6:25 AM EDT [facility] BUN 61(H) 7 - 25 mg/dL 10/08/2024 6:25 AM EDT [facility] Creatinine 3.10(H) 0.60 - 1.30 mg/dL 10/08/2024 6:25 AM EDT [facility] Glucose 106(H) 70 - 100 mg/dL 10/08/2024 6:25 AM EDT [facility] Calcium 9.0 8.6 - 10.3 mg/dL 10/08/2024 6:25 AM EDT [facility] Phosphorus 4.0 2.1 - 4.7 mg/dL 10/08/2024 6:25 AM EDT [facility] Albumin 3.5 3.5 - 5.7 g/dL 10/08/2024 6:25 AM EDT [facility] Osmolality, Calculated 298 278 - 305 mOsm/kg 10/08/2024 6:25 AM EDT [facility] EGFR 25 10/08/2024 6:25 AM EDT [facility] Comment:As of 2021, the estimated GFR [...] MD, PhD LAB BLOOD ORDERABLES Final Result [facility] [address] * (ABNORMAL) CBC (10/08/2024 5:36 AM EDT) WBC 3.2(L) 3.8 - 10.8 10E3/uL 10/08/2024 6:41 AM EDT [facility] RBC 1.86(L) 4.20 - 5.80 10E6/uL 10/08/2024 6:41 AM EDT [facility] Hemoglobin 6.9(L) 13.2 - 17.1 g/dL 10/08/2024 6:41 AM EDT [facility] Hematocrit 18.9(L) 38.5 - 50.0 % 10/08/2024 6:41 AM EDT [facility] MCV 101.6(H) 80.0 - 100.0 fL 10/08/2024 6:41 AM EDT [facility] MCH 36.9(H) 27.0 - 33.0 pg 10/08/2024 6:41 AM EDT [facility] MCHC 36.3(H) 32.0 - 36.0 g/dL 10/08/2024 6:41 AM EDT [facility] RDW 17.0(H) 11.0 - 15.0 % 10/08/2024 6:41 AM EDT [facility] Platelets 34(L) 140 - 400 10E3/uL 10/08/2024 6:41 AM EDT [facility] Comment: Specimen checked for clots. None detected. Slide Reviewed for PLT Clumps. None Seen. Platelet Estimate Decreased 10/08/2024 6:41 AM EDT [facility] MPV 8.4 7.5 - 11.5 fL 10/08/2024 6:41 AM EDT [facility] Whole Blood 10/08/2024 5:36 AM EDT 10/08/2024 5:53 AM EDT Narrative [facility] - 10/08/2024 6:41 AM EDT Peripheral blood smear was scanned per review criteria approved by the laboratory medical technologist. us Eileen Schroeder MD, PhD LAB BLOOD ORDERABLES Final Result Performing Organization Address City/[facility]/ZIP Co de Phone Number [facility] [address] * Vancomycin, random (10/08/2024 5:36 AM EDT) Vancomycin Random 16.0 ug/mL 10/08/2024 6:20 AM EDT [facility] Comment:Reference range not established for this test. Plasma 10/08/2024 5:36 AM EDT 10/08/2024 5:52 AM EDT us Jodi FreireD LAB BLOOD ORDERABLES Final Result Performing Organization Address [facility]/ZIP Co de Phone Number [facility] [address] * Urine Drug Confirmation (10/07/2024 10:50 PM EDT) BARBITURATES NOT PRESENT 10/09/2024 1:33 PM EDT [facility] BENZODIAZEPINES PRESENT 1:33 PM EDT [facility] Nordiazepam 3 ng/mL 10/09/2024 1:33 PM EDT [facility] Temazepam 6 ng/mL 10/09/2024 1:33 PM EDT [facility] CANNABINOIDS NOT PRESENT 10/09/2024 1:33 PM EDT [facility] SHIPPING CLERK STIMULANTS NOT PRESENT 1:33 PM EDT [facility] OPIOID ANALGESICS PRESENT 025 1:33 PM EDT [facility] Oxycodone 300 ng/mL 10/09/2024 1:33 PM EDT [facility] Oxymorphone 32 ng/mL 10/09/2024 1:33 PM EDT [facility] Tramadol >1000 ng/mL 10/09/2024 1:33 PM EDT [facility] OPIOID ANTAGONISTS NOT PRESENT 10/09 1:33 PM EDT [facility] SEDATIVES/MUSCLE RELAXANTS NOT PRESENT 10/09/2024 1:33 PM EDT [facility] TRICYCLIC ANTIDEPRESSANTS NOT PRESENT 10/09/2024 1:33 PM EDT [facility] Urine 10/07/2024 10:5 0 PM EDT 10/08/2024 3:00 AM EDT Gerri Peterson MD URINE ORDERABLES Final Result Performing Organization Address City/State/[facility] [[email or web address]] Co de Phone Number [facility] [address] * Giardia Cryptosporidium Antigens (10/07/2024 10:50 PM EDT) Cryptosporidium Ag Negative Negative 2024 7:59 AM EDT [facility] Giardia Ag Negative Negative 10/08/2024 7:59 AM EDT [facility] Comment: Detection of Giardia and Cryptosporidium antigen is more sensitive and specific than microscopy. Because antigens are shed continuously, repeat testing is rarely warranted. Feces 10/07/2024 10:5 0 PM EDT 10/08/2024 1:53 AM EDT Comment:F us Bisi Hernandez DO MICROBIOLOGY - GENERAL ORDERABLE S Final Result [facility] [address] [place] [address], [facility] * (ABNORMAL) Urine Drug Screen Reflex to Confirmation (10/07/2024 10:50 PM EDT) Amphetamine, 500 ng/mL Cutoff Negative Negative 10/08/2024 3:00 AM EDT [facility] Barbiturates UR, 300 ng/mL Cutoff Negative Negative 10/08/2024 3:00 AM EDT [facility] Buprenorphine, 5 ng/mL Cutoff Negative Negative 10/08/2024 3:00 AM EDT [facility] Benzodiazepines UR, 300 ng/mL Cutoff Negative Negative 10/08/2024 3:00 AM EDT [facility] Cocaine UR, 300 ng/mL Cutoff Negative Negative 10/08/2024 3:00 AM EDT [facility] Methadone, UR, 300 ng/mL Cutoff Negative Negative 10/08/2024 3:00 AM EDT [facility] Opiates UR, 300 ng/mL Cutoff Negative Negative 10/08/2024 3:00 AM EDT [facility] Oxycodone, 100 ng/mL Cutoff Presumptive Positive(A) Negative 10/08/2024 3:00 AM EDT [facility] Tricyclic Antidepressants, 300 ng/mL Cutoff Negative Negative 10/08/2024 3:00 AM EDT [facility] Comment:This test has been d eveloped and its performance characteristics determined by [facility] which is certified under the [...] Cutoff Negative Negative 10/08/2024 3:00 AM EDT [facility] Comment:This is a screening method only and may be associated with false positive and/or false negative results. Results are not definitive without additional confirmatory testing by mass spectrometry. Fentanyl, 2 ng/mL Cutoff Negative Negative 10/08/2024 3:00 AM EDT [facility] Comment:This test has been d eveloped and its performance characteristics determined by [facility] which is certified under the [...] PM EDT 10/08/2024 2:08 AM EDT Narrative [facility] - 10/08/2024 3:00 AM EDT CONFIRMATION TO FOLLOW Gerri Peterson MD URINE ORDERABLES Final Result [facility] [address] [place] [address], [facility] * Comprehensive Drug Screen (10/07/2024 10:50 PM EDT) Creatinine, Ur CANCELED mg/dL 10/08/2024 7:09 AM EDT [facility] Comment:The released value 8 7.30 was canceled by YAQUELIN on 10/08/2024 07:09 BARBITURATES CANCELED [facility] Butalbital CANCELED [facility] Phenobarbital CANCELED [facility] Secobarbital CANCELED [facility] BENZODIAZEPINES CANCELED [facility] Alprazolam CANCELED [facility] Clonazepam CANCELED [facility] Diazepam CANCELED [facility] Alpha-Hydroxyalprazo mcknight CANCELED [facility] Lorazepam CANCELED [facility] Midazolam CANCELED [facility] Nordiazepam CANCELED [facility] Oxazepam CANCELED [facility] Temazepam CANCELED [facility] CANNABINOIDS CANCELED [facility] THC-COOH CANCELED [facility] SHIPPING CLERK STIMULANTS CANCELED [facility] Cocaine Metabolite(benzoylec gonine) CANCELED [facility] Amphetamine CANCELED [facility] Methamphetamine CANCELED [facility] MDA CANCELED [facility] MDEA CANCELED [facility] Phencyclindine (PCP) CANCELED [facility] OPIOID ANALGESICS CANCELED [facility] Heroin Metabolite(6-RAMONA) CANCELED [facility] Codeine CANCELED [facility] Morphine CANCELED [facility] Hydrocodone [facility]CELED [facility] Hydromorphone [facility] Oxycodone CANCELED [facility] Oxymorphone [facility] Meperidine CANC[facility]ED [facility] Normeperidine [facility]ED [facility] Methadone CANCELED [facility] Methadone Metabolite (EDDP) CANCELED [facility] Tramadol CANCELED [facility] Fentanyl CANCELED [facility] Norfentanyl [facility] Sufentanil CANCELED [facility] OPIOID ANTAGONISTS CANCELED [facility] Buprenorphine CANCELED [facility] Norbuprenorphine CANCELED [facility] Naltrexone CANCELED [facility] Naloxone CANCELED [facility] SEDATIVES/MUSCLE RELAXANTS CANCELED [facility] Carisoprodol CANCELED [facility] Meprobamate [facility]CELED [facility] TRICYCLIC ANTIDEPRESSANTS CANCELED [facility] Amitriptyline [facility]ED [facility] Clomipramine CAN[facility]ELED [facility] Desipramine [facility] Doxepin CANCELED [facility] Imipramine CANCELED [facility] Nortriptyline [facility] Urine Creatinine CANCELED mg/dL [facility] Nitrite CANCELED [facility] Glutaraldehyde CANCELED [facility] pH CANCELED 10/08/2024 7:09 AM EDT [facility] Comment:The released value 5 .6 was canceled by YAQUELIN on 10/08/2024 07:09 Specific [place] CANCELED 10/09/19 7:09 AM EDT [facility] Comment:The released value 1 .009 was canceled by YAQUELIN on 10/08/2024 07:09 Bleach CANCELED [facility] Pyridinium Chlorochromate CANCELED [facility] Urine 10/07/2024 10:5 0 PM EDT 10/08/2024 2:07 AM EDT Narrative [facility] - 10/08/2024 7:09 AM EDT See accn [id number] Gerri Peterson MD URINE ORDERABLES Edited Result - Final [facility] [address] [employer] [facility]. [address] * Ova and Parasite Comprehensive w/ Giardia/Crypto (10/07/2024 10:50 PM EDT) O & P Method: Concentration and Trichrome Stain [facility] Results No Amoeba, Ova, Or Parasites Seen. -- O and P examination of additional specimens is recommended only for symptomatic patients, immunosuppressed patients or those with an appropriate travel history. [facility] Feces FECES / Unknown 10/07/2024 1 0:50 PM EDT 10/08/2024 1:53 AM EDT Comment:F Bisi Hernandez DO MICROBIOLOGY - GENERAL ORDERABLE S Final Result Performing Organization Address [facility]/ZIP Co de Phone Number [facility] [address] [facility]. [address] * Enteric Pathogen Panel (10/07/2024 10:50 PM EDT) Pathologist [facility] Campylobacter Group (C. ecoli, C. jejuni, C. trino) Not Detected Not Detected 10/08/2024 4:40 AM EDT [facility] Salmonella species Not Detected Not Detected 10/08/2024 4:40 AM EDT [facility] Shigella species Not Detected Not Detected 10/08/2024 4:40 AM EDT [facility] Vibrio Group (Vibrio cholerae, Vibrio parahaemolyticus) Not Detected Not Detected 10/08/2024 4:40 AM EDT [facility] Yersinia enterocolitica Not Detected Not Detected 10/08/2024 4:40 AM EDT [facility] Shiga toxin 1 Not Detected Not Detected 10/08/2024 4:40 AM EDT [facility] Shiga toxin 2 Not Detected Not Detected 10/08/2024 4:40 AM EDT [facility] Norovirus Not Detected Not Detected 10/08/2024 4:40 AM EDT [facility] Rotavirus Not Detected Not Detected 10/08/2024 4:40 AM EDT [facility] Comment: The Enteric Pathogen Panel is [...] ORDERABLE S Final Result Performing Organization Address [facility] [[email or web address]] Co de Phone Number [facility] [address] * Hepatitis C Antibody (10/07/2024 6:38 PM EDT) HCV Ab Nonreactive Nonreactive 10/07/2024 7:56 PM EDT [facility] Comment:Health Department no tified in accordance with reportable infectious disease guidelines. Serum 10/07/2024 6:38 PM EDT 10/07/2024 6:52 PM EDT Narrative [facility] - 10/07/2024 7:56 PM EDT Antibodies to HCV not detected; does not exclude the possibility of exposure to HCV. Gerri Peterson MD LAB BLOOD ORDERABLES Final Resu lt Performing Organization Address City/[facility]/ZIP Co de Phone Number [facility] [address] [facility]. [address] * Hepatitis B Surface Antibody, Quantitati (10/07/2024 6:38 PM EDT) Hep B S Ab Nonreactive Nonreactive 10/07/2024 8:00 PM EDT [facility] HBSAB NUMBER 7.88 0.00 - 7.99 mIU/mL 10/07/2024 8:00 PM EDT [facility] Serum 10/07/2024 6:38 PM EDT 10/07/2024 6:52 PM EDT [facility] - 10/07/2024 8:00 PM EDT Individual is considered not immune to HBV infection. Gerri Peterson MD LAB BLOOD ORDERABLES Final Resu lt Performing Organization Address [facility]/ZIP Co de Phone Number [facility] [address] [place] [address]. [address] * Hepatitis B surface antigen (10/07/2024 6:38 PM EDT) Hep B Surface Ag Nonreactive Nonreactive 10/07/2024 7:51 PM EDT [facility] Comment:Health Department no tified in accordance with reportable infectious disease guidelines. Serum 10/07/2024 6:38 PM EDT 10/07/2024 6:52 PM EDT [facility] - 10/07/2024 7:51 PM EDT Specimen is considered negative for HBsAg. Gerri Peterson MD LAB BLOOD ORDERABLES Final Resu lt Performing Organization Address [facility] [[email or web address]] Co de Phone Number [facility] [address] [facility]. [address] * Hepatitis A Antibody Total (10/07/2024 6:38 PM EDT) Anti-HAV Total (IgG + IgM) Nonreactive 10/07/2024 7:53 PM EDT [facility] Serum 10/07/2024 6:38 PM EDT 10/07/2024 6:52 PM EDT [facility] - 10/07/2024 7:53 PM EDT HAV antibodies not detected Gerri Peterson MD LAB BLOOD ORDERABLES Final Resu lt [facility] [address] [place] [address], [facility] * Hepatitis A IgM (10/07/2024 6:38 PM EDT) Hep A IgM Nonreactive Nonreactive 10/07/2024 7:46 PM EDT [facility] Serum 10/07/2024 6:38 PM EDT 10/07/2024 6:52 PM EDT Narrative [facility] - 10/07/2024 7:46 PM EDT IgM anti-HAV not detected. Does not exclude the possibility of exposure to or infection with HAV. Levels of IgM anti-HAV may be below the cut-off in early infection. us Gerri Peterson MD LAB BLOOD ORDERABLES Final Resu lt [facility] [address] * (ABNORMAL) Lipid Profile (10/07/2024 6:37 PM EDT) Non-HDL Cholesterol, Calculated See Note 0 - 129 mg/dL 10/07/2024 7:42 PM EDT [facility] Comment: Desirable: < 130 mg/dL Above Desirable: 130-159 mg/dL Borderline High: 160-189 mg/dL High: 190-219 mg/dL Very High: > 219 mg/dL Unable to calculate result either because contributing result(s) are outside of reportable range or are not available. Cholesterol, Total <25 0 - 200 mg/dL 10/07/2024 7:42 PM EDT [facility] Triglycerides 30 10 - 149 mg/dL 10/07/2024 7:42 PM EDT [facility] HDL 4(L) 60 - 92 mg/dL 10/07/2024 7:42 PM EDT [facility] Comment: LIPID PROFILE INTERPRETATION CHOLESTEROL,TOTAL(mg/dL) DESIRABLE: [...] Cholesterol See Note mg/dL 7:42 PM EDT [facility] Comment:Unable to calculate result either because contributing result(s) are outside of reportable range or are not available. Plasma 10/07/2024 6:37 PM EDT 10/07/2024 7:06 PM EDT Narrative [facility] - 10/07/2024 7:42 PM EDT LDL cholesterol calculated using the Friedewald equation. us Gerri Peterson MD LAB BLOOD ORDERABLES Final Resu lt [facility] [address] * (ABNORMAL) Alpha 1 Antitrypsin AAT Quant & Mutation (10/07/2024 6:37 PM EDT) A-1 Antitrypsin 99(L) 101 - 187 mg/dL 10/09/2024 4:28 AM EDT [facility] A-1 Antitrypsin Pheno Comment 10/10/2024 4:05 PM EDT [facility] Comment: A1A Phenotype is consistent with a heterozygous phenotype consisting of one M (normal) allele and one allele that cannot be identified at this time. The unknown allele is not consistent with Z (deficient), S (deficient), or F (deficient). MM Phenotype is considered to be normal , producing normal serum levels of [id number] inhibitor and not associated with clinical disease. [...] PM EDT 10/10/2024 4:08 PM EDT Narrative [facility] - 10/10/2024 4:08 PM EDT PERFORMED AT: [facility] [address] [id number] [employer] MAKER: Bassam Khalil, PhD PHONE: [phone] PERFORMED AT: [facility] [address] [id number] [employer] MAKER: Mandy Abdul MD PHONE: [phone] us Gerri Peterson MD LAB BLOOD ORDERABLES Final Resu lt Performing Organization Address [facility] [[email or web address]] Co de Phone Number [address] * (ABNORMAL) CMV IgG Antibody (10/07/2024 6:37 PM EDT) CMV IgG Positive(A ) Negative 10/07/2024 8:26 PM EDT [facility] CMV IGG NUM 8.40(H) 0.00 - 0.59 U/mL 10/07/2024 8:26 PM EDT [facility] Serum 10/07/2024 6:37 PM EDT 10/07/2024 6:50 PM EDT Gerri Peterosn MD LAB BLOOD ORDERABLES Final Resu lt Performing Organization Address City/[facility]/ZIP Co de Phone Number [facility] [phone] * HIV-1 and HIV-2 Antibodies w Reflex (10/07/2024 6:37 PM EDT) Pathologist [facility] HIV 1+2 AB/AGN Nonreactive Nonreactive 10/07/2024 7:54 PM EDT [facility] Serum 10/07/2024 6:37 PM EDT 10/07/2024 7:06 PM EDT Narrative [facility] - 10/07/2024 7:54 PM EDT \HIVRNR Gerri Peterson MD LAB BLOOD ORDERABLES Final Resu lt [facility] [address] [place] [phone]. [address] * TSH (Thyroid Stimulating Hormone) (10/07/2024 6:37 PM EDT) Pathologist [facility] TSH 0.81 0.45 - 4.12 uIU/mL 10/07/2024 8:17 PM EDT [facility] Serum 10/07/2024 6:37 PM EDT 10/07/2024 6:50 PM EDT Gerri Peterson MD LAB BLOOD ORDERABLES Final Resu lt [facility] [address] [place] [address]. [address] * Katie-Watkins virus early antigen antibody, IgG (10/07/2024 6:37 PM EDT) Pathologist [facility] EBV Early Antigen Ab, IgG <9.0 0.0 - 8.9 U/mL 10/09/2024 2:16 PM EDT [facility] Comment: Negative < 9.0 Equivocal 9.0 - 10.9 Positive >10.9 Serum Frozen 10/07/2024 6:37 PM EDT 10/09/2024 3:07 PM EDT Narrative [facility] - 10/09/2024 3:07 PM EDT PERFORMED AT: [facility] [id number] [place], [place] [id number] [employer] MAKER: Bassam Khalil, PhD PHONE: [phone] Gerri Peterson MD LAB BLOOD ORDERABLES Final Resu lt Performing Organization Address [facility] [[email or web address]] Co de Phone Number [facility] [address] [place] [address], [facility] * (ABNORMAL) Varicella zoster antibody, IgG (10/07/2024 6:37 PM EDT) Varicella IgG Positive( A) Negative S/CO 10/07/2024 8:34 PM EDT [facility] Comment:Result indicates the presence of detectable VZV IgG antibodies. A positive result is generally indicative of exposure to the pathogen or administration of specific immunoglobulins, but it is no indication of active infection or stage of disease. This test is not approved for determining vaccine-induced immunity to varicella zoster virus. VZV NUM 6.76(H) 0.00 - 0.99 S/CO 10/07/2024 8:34 PM EDT [facility] Serum 10/07/2024 6:37 PM EDT 10/07/2024 6:50 PM EDT Gerri Peterson MD LAB BLOOD ORDERABLES Final Resu lt Performing Organization Address [facility] [[email or web address]] Co de Phone Number [facility] [address] [place] [address], [facility] * Toxoplasma gondii antibody, IgG (10/07/2024 6:37 PM EDT) Toxoplasma Gondii IgG <3.0 0.0 - 7.1 IU/mL 10/09/2024 7:53 AM EDT [facility] Comment: Negative <7.2 Equivocal 7.2 - 8.7 Positive >8.7 Serum 10/07/2024 6:37 PM EDT 10/09/2024 8:07 AM EDT Narrative [facility] - 10/09/2024 8:07 AM EDT PERFORMED AT: [facility] [address] [place], [place] [id number] [employer]: Bassam Khalil, PhD PHONE: [phone] Gerri Peterson MD LAB BLOOD ORDERABLES Final Resu lt Performing Organization Address City/[facility] [[email or web address]] Co de Phone Number [facility] [address] [facility]. [address] * Syphilis Screening (Trepia) (10/07/2024 6:37 PM EDT) Treponema Pallidum Negative Negative 10/07/2024 8:27 PM EDT [facility] Comment: No serological evidence of infection with Treponema pallidum (incubating or early primary syphilis cannot be excluded). Serum 10/07/2024 6:37 PM EDT 10/07/2024 6:50 PM EDT Gerri Peterson MD LAB BLOOD ORDERABLES Final Resu lt Performing Organization Address [facility] [[email or web address]] Co de Phone Number [facility] [address] [facility]. [address] * Strongyloides Ab (10/07/2024 6:37 PM EDT) Strongyloides Ab Negative Negative 10/11/19 11:51 AM EDT [facility] Serum 10/07/2024 6:37 PM EDT 10/10/2024 12:07 PM EDT Narrative [facility] - 10/10/2024 12:07 PM EDT PERFORMED AT: [facility] [id number] [employer]KER: Mandy Abdul MD PHONE: [phone] Gerri Peterson MD LAB BLOOD ORDERABLES Final Resu lt Performing Organization Address City/[facility] [[email or web address] Co de Phone Number [facility] [address] [facility]. [address] * Phosphatidylethanol Confirmation, B (10/07/2024 6:37 PM EDT) PETH 16:0/18.1 (POPETH) <10 Cutoff: 10 ng/mL 10/10/2024 10:42 AM EDT [facility] Comment: Phosphatidylethanol (PEth) homologues result interpretation [...] Cutoff: 10 ng/mL 10/10/2024 10:42 AM EDT [facility] Comment: PEth 16:0/18:2 (PLPEth) Reference ranges are not well established PEth Interpretation Negative. 10/10 10:42 AM EDT [facility] Comment: ADDITIONAL INFORMATION This report is intended for use in clinical monitoring and management of patients. It is not intended for use in employment-related testing. This test was developed and its performance characteristics determined by [facility] in a manner consistent with CLIA requirements. This test has not been cleared or approved by the U.S. Food and Drug Administration. Test Performed by: [facility] [place] [id number] Home Specialist: Kathy Ortiz Ph.D.; CLIA# [id number] Whole Blood 10/07/2024 6:37 PM EDT 10/10/2024 10:42 AM EDT us Gerri Peterson MD LAB BLOOD ORDERABLES Final Resu lt [facility] [address] [place] [address], [facility] * (ABNORMAL) MMR(IgG) Panel (Measles, Mumps, Rubella) (10/07/2024 6:37 PM EDT) Mumps IgG Positive 10/07/2024 8:26 PM EDT [facility] MUMPS IGG NUM 77.80(H) 0.0 - 8.9 U/mL 10/07/2024 8:26 PM EDT [facility] Rubella IgG Scr Positive 10/07/2024 8:28 PM EDT [facility] RUB NUM 3.04(H) 0.00 - 0.89 INDEX 10/07/2024 8:28 PM EDT [facility] Rubeola Ab, IgG Positive 10/07/2024 8:26 PM EDT [facility] RUB IGG NUM 192.00(H) 0.00 - 13.40 U/mL 10/07/2024 8:26 PM EDT [facility] Serum 10/07/2024 6:37 PM EDT 10/07/2024 6:50 PM EDT Narrative [facility] - 10/07/2024 8:28 PM EDT Presence of detectable measles virus IgG antibodies. A positive result generally indicates exposure to measles virus or previous vaccination. Presence of detectable mumps virus IgG antibodies. A positive result generally indicates past exposure to mumps virus or previous vaccination. Sample is considered positive for IgG antibodies to rubella virus. Result [facility] Gerri Peterson MD LAB BLOOD ORDERABLES Final Resu lt Performing Organization Address [facility]/State/ZIP Co de Phone Number [facility] [address] * IgA (10/07/2024 6:37 PM EDT) IgA 227.0 70.0 - 400.0 mg/dL 10/08/2024 11:07 AM EDT [facility] Comment:Please interpret the se findings in conjunction with clinical findings, protein electrophoresis, and immunotyping/immunofixation results. Serum 10/07/2024 6:37 PM EDT 10/07/2024 6:50 PM EDT Gerri Peterson MD LAB BLOOD ORDERABLES Final Resu lt [facility] [address] [employer] [facility]. [address] * Ethanol, Serum (10/07/2024 6:37 PM EDT) Ethanol <10 0 - 10 mg/dL 10/07/2024 8:36 PM EDT [facility] Serum 10/07/2024 6:37 PM EDT 10/07/2024 6:50 PM EDT Gerri Peterson MD LAB BLOOD ORDERABLES Final Resu lt Performing Organization Address [facility]/ZIP Co de Phone Number [facility] [address] [place] [address]. [address] * ABO/Rh - Second (10/07/2024 6:37 PM EDT) ABO Grouping O 10/07/2024 7:16 PM EDT [facility] Rh Type Positive 10/07/2024 7:16 PM EDT [facility] Blood 10/07/2024 6:37 PM EDT 10/07/2024 6:56 PM EDT Narrative [facility] - 10/07/2024 7:18 PM EDT This is not a duplicate order. It is required that ABO be drawn twice for LIVER TRANSPLANT Gerri Peterson MD BLOOD BANK TEST ORDERABLES Denisse l Result Performing Organization Address [facility]/ZIP Co de Phone Number [facility] [address] [employer] [facility]. [address] * ABO/Rh- Initial (10/07/2024 6:37 PM EDT) ABO Grouping O 10/07/2024 7:59 PM EDT [facility] Rh Type Positive 10/07/2024 7:59 PM EDT [facility] Blood 10/07/2024 6:37 PM EDT 10/07/2024 7:25 PM EDT us Gerri Peterson MD BLOOD BANK TEST ORDERABLES Denisse l Result [facility] [address] [place] [address], [facility] * X-ray Mandible minimum 4-views (10/07/2024 [...] EXAM: US ABDOMEN COMPLETE EXAM: US DUPLEX [id number] COMPLETE INDICATION: elevated bilirubin COMPARISON: Ultrasound and [...] EXAM: US ABDOMEN COMPLETE EXAM: US DUPLEX [id number] COMPLETE INDICATION: elevated bilirubin COMPARISON: Ultrasound and [...] 4:26 PM EDT us Bisi Hernandez DO [facility] US ORDERABLES Final Result * US Duplex Ivp-[id number]-[id number] Comp (10/07/2024 3:48 PM EDT) Anatomical Region [...] EXAM: US ABDOMEN COMPLETE EXAM: US DUPLEX [id number] COMPLETE INDICATION: elevated bilirubin COMPARISON: Ultrasound and [...] EXAM: US ABDOMEN COMPLETE EXAM: US DUPLEX [id number] COMPLETE INDICATION: elevated bilirubin COMPARISON: Ultrasound and [...] LAB BLOOD ORDERABLES Final Result [facility] [address] * (ABNORMAL) Hepatic Function Panel (10/07/2024 6:00 AM EDT) Total Bilirubin 9.7(H) 0.0 - 1.5 mg/dL 10/07/2024 7:10 AM EDT [facility] Bilirubin, Direct 5.21(H) 0.00 - 0.40 mg/dL 10/07/2024 7:10 AM EDT [facility] AST 39 13 - 39 U/L 10/07/2024 7:10 AM EDT [facility] ALT 18 7 - 52 U/L 10/07/2024 7:10 AM EDT [facility] Alkaline Phosphatase 98 36 - 125 U/L 10/07/2024 7:10 AM EDT [facility] Total Protein 4.8(L) 6.4 - 8.9 g/dL 10/07/2024 7:10 AM EDT [facility] Albumin 3.6 3.5 - 5.7 g/dL 10/07/2024 7:10 AM EDT [facility] Bilirubin, Indirect 4.49(H) 0.00 - 1.10 mg/dL 10/07/2024 7:10 AM EDT [facility] Plasma 10/07/2024 6:00 AM EDT 10/07/2024 6:39 AM EDT us Eileen Schroeder MD, PhD LAB BLOOD ORDERABLES Final Result Performing Organization Address [facility]/ZIP Co de Phone Number [facility] [address] * Magnesium (10/07/2024 6:00 AM EDT) Magnesium 1.7 1.5 - 2.5 mg/dL 10/07/2024 7:10 AM EDT [facility] Plasma 10/07/2024 6:00 AM EDT 10/07/2024 6:39 AM EDT us Eileen Schroeder MD, PhD LAB BLOOD ORDERABLES Final Result Performing Organization Address [facility] [[email or web address]] Co ks Phone Number [facility] [address] * (ABNORMAL) Renal Function Panel w/EGFR (10/07/2024 6:00 AM EDT) Sodium 132(L) 133 - 146 mmol/L 10/07/2024 7:10 AM EDT [facility] Potassium 3.9 3.5 - 5.3 mmol/L 10/07/2024 7:10 AM EDT [facility] Chloride 103 98 - 110 mmol/L 10/07/2024 7:10 AM EDT [facility] CO2 19(L) 21 - 33 mmol/L 10/07/2024 7:10 AM EDT [facility] Anion Gap 10 3 - 16 mmol/L 10/07/2024 7:10 AM EDT [facility] BUN 64(H) 7 - 25 mg/dL 10/07/2024 7:10 AM EDT [facility] Creatinine 3.38(H) 0.60 - 1.30 mg/dL 10/07/2024 7:10 AM EDT [facility] Glucose 111(H) 70 - 100 mg/dL 10/07/2024 7:10 AM EDT [facility] Calcium 9.1 8.6 - 10.3 mg/dL 10/07/2024 7:10 AM EDT [facility] Phosphorus 4.2 2.1 - 4.7 mg/dL 10/07/2024 7:10 AM EDT [facility] Albumin 3.6 3.5 - 5.7 g/dL 10/07/2024 7:10 AM EDT [facility] Osmolality, Calculated 293 278 - 305 mOsm/kg 10/07/2024 7:10 AM EDT [facility] EGFR 22 10/07/2024 7:10 AM EDT [facility] Comment:As of 2021, the estimated GFR [...] MD, PhD LAB BLOOD ORDERABLES Final Result [facility] [address] * (ABNORMAL) CBC (10/07/2024 6:00 AM EDT) WBC 3.3(L) 3.8 - 10.8 10E3/uL 10/07/2024 7:55 AM EDT [facility] RBC 2.06(L) 4.20 - 5.80 10E6/uL 10/07/2024 7:55 AM EDT [facility] Hemoglobin 7.4(L) 13.2 - 17.1 g/dL 10/07/2024 7:55 AM EDT [facility] Hematocrit 21.5(L) 38.5 - 50.0 % 10/07/2024 7:55 AM EDT [facility] MCV 104.1(H) 80.0 - 100.0 fL 10/07/2024 7:55 AM EDT [facility] MCH 35.8(H) 27.0 - 33.0 pg 10/07/2024 7:55 AM EDT [facility] MCHC 34.4 32.0 - 36.0 g/dL 10/07/2024 7:55 AM EDT [facility] RDW 17.5(H) 11.0 - 15.0 % 10/07/2024 7:55 AM EDT [facility] Platelets 35(L) 140 - 400 10E3/uL 10/07/2024 7:55 AM EDT [facility] Comment: Specimen checked for clots. None detected. Slide Reviewed for PLT Clumps. None Seen. _Platelet Morphology Normal _Platelets Appear Decreased Platelet Estimate Decreased 10/07/2024 7:55 AM EDT [facility] MPV 8.0 7.5 - 11.5 fL 10/07/2024 7:55 AM EDT [facility] Whole Blood 10/07/2024 6:00 AM EDT 10/07/2024 6:40 AM EDT Narrative [facility] - 10/07/2024 7:55 AM EDT Peripheral blood smear was scanned per review criteria approved by the laboratory medical technologist. us Eileen Schroeder MD, PhD LAB BLOOD ORDERABLES Final Result [facility] [address] [place] [address], [facility] * AFP Tumor Marker (10/07/2024 6:00 AM EDT) AFP-Tumor Marker 2.0 0.0 - 9.0 ng/mL 10/07/2024 7:11 AM EDT [facility] Serum 10/07/2024 6:00 AM EDT 10/07/2024 6:39 AM EDT Narrative [facility] - 10/07/2024 7:11 AM EDT The testing method for AFP is a chemiluminescent immunoassay manufactured by [employer] Concentrations of AFP obtained by different assay methods or kits may vary and cannot be used interchangeably. AFP results cannot be interpreted as absolute evidence of the presence or absence of malignant disease. Shila Rivera MD LAB BLOOD ORDERABLES Final Resul t Performing Organization Address City/[facility]/ZIP Co de Phone Number [facility] [address] [facility]. [address] * Vancomycin, random (10/07/2024 6:00 AM EDT) Vancomycin Random 21.1 ug/mL 10/07/2024 7:08 AM EDT [facility] Comment:Reference range not established for this test. Plasma 10/07/2024 6:00 AM EDT 10/07/2024 6:39 AM EDT Kiet Gardiner PharmD LAB BLOOD ORDERABLES Final Re sult Performing Organization Address [facility] [[email or web address]] Co de Phone Number [facility] [address] [facility]. [address] * Osmolality (10/06/2024 2:50 PM EDT) Osmolality, Measured 304 278 - 305 mOsm/kg 10/06/2024 3:49 PM EDT [facility] Serum 10/06/2024 2:50 PM EDT 10/06/2024 2:56 PM EDT Chari Vanegas MD LAB BLOOD ORDERABLES Final Resul t Performing Organization Address [facility] [[email or web address]] Co de Phone Number [facility] [address] [facility]. [address] * CT Head WO contrast (10/06/2024 [...] Ur <15 mmol/L 10/06/2024 1:56 PM EDT [facility] Comment:Reference range not established for this test. Urine 10/06/2024 1:25 PM EDT 10/06/2024 1:32 PM EDT us Chari Vanegas MD URINE ORDERABLES Final Result Performing Organization Address [facility] [[email or web address]] Co de Phone Number [facility] [address] [facility]. [address] * Potassium, urine, random (10/06/2024 1:25 PM EDT) Potassium Urine Random 50.0 mmol/L 10/06/2024 1:56 PM EDT [facility] Comment:Reference range not established for this test. Urine 10/06/2024 1:25 PM EDT 10/06/2024 1:32 PM EDT us Chari Vanegas MD URINE ORDERABLES Final Result Performing Organization Address [facility] [[email or web address]] Co de Phone Number [facility] [address] [facility]. [address] * Sodium, urine, random (10/06/2024 1:25 PM EDT) Sodium, Ur <10 mmol/L 10/06/2024 1:56 PM EDT [facility] Comment:Reference range not established for this test. Urine 10/06/2024 1:25 PM EDT 10/06/2024 1:32 PM EDT us Chari Vanegas MD URINE ORDERABLES Final Result Performing Organization Address [facility] [[email or web address]] Co de Phone Number [facility] [address] [facility]. [address] * Creatinine, Urine, Random (10/06/2024 1:25 PM EDT) Creatinine, Urine 87.40 mg/dL 10/06/2024 1:56 PM EDT [facility] Comment:Reference range not established for this test. Urine 10/06/2024 1:25 PM EDT 10/06/2024 1:32 PM EDT us Chari Vanegas MD URINE ORDERABLES Final Result [facility] [address] [facility]. [address] * Osmolality, Urine (10/06/2024 1:25 PM EDT) Osmolality, Ur 386 50 - 1,200 mOsm/kg 10/06/2024 1:55 PM EDT [facility] Urine 10/06/2024 1:25 PM EDT 10/06/2024 1:32 PM EDT us Chari Vanegas MD URINE ORDERABLES Final Result Performing Organization Address [facility] [[email or web address]] Co de Phone Number [facility] [address] [facility]. [address] * Urine Drug Confirmation (10/06/2024 11:51 [...] PRESENT 10/09/2024 3:23 PM EDT [facility] SHIPPING CLERK STIMULANTS NOT PRESENT 3:23 PM EDT [facility] OPIOID ANALGESICS PRESENT 025 3:23 PM EDT [facility] Oxycodone 329 ng/mL 10/09/2024 3:23 PM EDT [facility] Oxymorphone 61 ng/mL 10/09/2024 3:23 PM EDT [facility] Tramadol >1000 ng/mL 10/09/2024 3:23 PM EDT [facility] OPIOID ANTAGONISTS NOT PRESENT 10/09 3:23 PM EDT [facility] SEDATIVES/MUSCLE RELAXANTS NOT PRESENT 10/09/2024 3:23 PM EDT [facility] TRICYCLIC ANTIDEPRESSANTS NOT PRESENT 10/09/2024 3:23 PM EDT [facility] Urine 10/06/2024 11:5 1 AM EDT 10/06/2024 1:13 PM EDT Bisi Hernandez DO URINE ORDERABLES Final Result [facility] [address] [place] [address], [facility] * (ABNORMAL) Urine Drug Screen Reflex to Confirmation (10/06/2024 11:51 AM EDT) Amphetamine, 500 ng/mL Cutoff Negative Negative 10/06/2024 1:13 PM EDT [facility] Barbiturates UR, 300 ng/mL Cutoff Negative Negative 10/06/2024 1:13 PM EDT [facility] Buprenorphine, 5 ng/mL Cutoff Negative Negative 10/06/2024 1:13 PM EDT [facility] Benzodiazepines UR, 300 ng/mL Cutoff Negative Negative 10/06/2024 1:13 PM EDT [facility] Cocaine UR, 300 ng/mL Cutoff Negative Negative 10/06/2024 1:13 PM EDT [facility] Methadone, UR, 300 ng/mL Cutoff Negative Negative 10/06/2024 1:13 PM EDT [facility] Opiates UR, 300 ng/mL Cutoff Negative Negative 10/06/2024 1:13 PM EDT [facility] Oxycodone, 100 ng/mL Cutoff Presumptive Positive(A) Negative 10/06/2024 1:13 PM EDT [facility] Tricyclic Antidepressants, 300 ng/mL Cutoff Negative Negative 10/06/2024 1:13 PM EDT [facility] Comment:This test has been d eveloped and its performance characteristics determined by [facility] which is certified under the [...] Cutoff Negative Negative 10/06/2024 1:13 PM EDT [facility] Comment:This is a screening method only and may be associated with false positive and/or false negative results. Results are not definitive without additional confirmatory testing by mass spectrometry. Fentanyl, 2 ng/mL Cutoff Negative Negative 10/06/2024 1:13 PM EDT [facility] Comment:This test has been d eveloped and its performance characteristics determined by [facility] which is certified under the [...] AM EDT 10/06/2024 11:58 AM EDT Narrative [facility] - 10/06/2024 1:13 PM EDT CONFIRMATION TO FOLLOW [facility] URINE ORDERABLES Final Result Performing Organization Address City/[facility]/ZIP Co de Phone Number [facility] [address] [place] [address] * Chloride, urine, random (10/06/2024 11:51 AM EDT) Chloride, Ur <15 mmol/L 10/06/2024 1:13 PM EDT [facility] Comment:Reference range not established for this test. Urine 10/06/2024 11:5 1 AM EDT 10/06/2024 11:57 AM EDT mycujooella DO URINE ORDERABLES Final Result Performing Organization Address City/[facility]/ZIP Co de Phone Number [facility] [address] * Potassium, urine, random (10/06/2024 11:51 AM EDT) Potassium Urine Random 49.0 mmol/L 10/06/2024 1:13 PM EDT [facility] Comment:Reference range not established for this test. Urine 10/06/2024 11:5 1 AM EDT 10/06/2024 11:57 AM EDT Bisi Akana maría DO URINE ORDERABLES Final Result Performing Organization Address City/[facility]/ZIP Co de Phone Number [facility] [address] [facility]. [address] * Sodium, urine, random (10/06/2024 11:51 AM EDT) Sodium, Ur <10 mmol/L 10/06/2024 1:13 PM EDT [facility] Comment:Reference range not established for this test. Urine 10/06/2024 11:5 1 AM EDT 10/06/2024 11:57 AM EDT mycujooana maría DO URINE ORDERABLES Final Result Performing Organization Address [facility] de Phone Number [facility] [address] [facility]. [address] * Urinalysis w/Rfl to Microscopic (10/06/2024 11:51 AM EDT) Color, UA Yellow Yellow,Straw 10/06/2024 12:25 PM EDT [facility] Clarity, UA Clear Clear 10/06/2024 12:25 PM EDT [facility] Specific [place], UA 1.014 1.005 - 1.035 10/06/2024 12:25 PM EDT [facility] pH, UA 6.0 5.0 - 8.0 10/06/2024 12:25 PM EDT [facility] Protein, UA Negative Negative mg/dL 10/06/2024 12:25 PM EDT [facility] Glucose, UA Negative Negative mg/dL 10/06/2024 12:25 PM EDT [facility] Ketones, UA Negative Negative mg/dL 10/06/2024 12:25 PM EDT [facility] Bilirubin, UA Negative Negative 10/06/2024 12:25 PM EDT [facility] Blood, UA Negative Negative 10/06/2024 12:25 PM EDT [facility] Nitrite, UA Negative Negative 10/06/2024 12:25 PM EDT [facility] Urobilinogen, UA <2.0 0.2 - 1.9 mg/dL 10/06/2024 12:25 PM EDT [facility] Leukocyte Esterase, UA Negative Negative 10/06/2024 12:25 PM EDT [facility] Urine 10/06/2024 11:5 1 AM EDT 10/06/2024 11:57 AM EDT Narrative [facility] - 10/06/2024 12:25 PM EDT Microscopic testing is not performed when the dipstick is negative for blood, leukocyte, protein and nitrite. us Bisi Hernandez DO URINE ORDERABLES Final Result Performing Organization Address [facility]/ZIP Co de Phone Number [facility] [address] [place] [address] * Lactic Acid, STAT (10/06/2024 7:38 AM EDT) Lactate 0.9 0.5 - 2.2 mmol/L 10/06/2024 8:05 AM EDT [facility] Plasma 10/06/2024 7:38 AM EDT 10/06/2024 7:42 AM EDT Chari Vanegas MD LAB BLOOD ORDERABLES Final Resul t Performing Organization Address City/[facility]/ZIP Co de Phone Number [facility] [address] * (ABNORMAL) CBC, STAT (10/06/2024 7:37 AM EDT) WBC 5.6 3.8 - 10.8 10E3/uL 10/06/2024 8:22 AM EDT [facility] RBC 2.50(L) 4.20 - 5.80 10E6/uL 10/06/2024 8:22 AM EDT [facility] Hemoglobin 9.0(L) 13.2 - 17.1 g/dL 10/06/2024 8:22 AM EDT [facility] Hematocrit 25.3(L) 38.5 - 50.0 % 10/06/2024 8:22 AM EDT ACCESS [facility] MCV 101.2(H) 80.0 - 100.0 fL 10/06/2024 8:22 AM EDT [facility] MCH 36.0(H) 27.0 - 33.0 pg 10/06/2024 8:22 AM EDT [facility] MCHC 35.6 32.0 - 36.0 g/dL 10/06/2024 8:22 AM EDT [facility] RDW 17.7(H) 11.0 - 15.0 % 10/06/2024 8:22 AM EDT [facility] Platelets 52(L) 140 - 400 10E3/uL 10/06/2024 8:22 AM EDT [facility] Comment: Specimen checked for clots. None detected. Slide Reviewed for PLT Clumps. None Seen. MPV 8.2 7.5 - 11.5 fL 10/06/2024 8:22 AM EDT [facility] Whole Blood 10/06/2024 7:3 7 AM EDT 10/06/2024 7:43 AM EDT us Chari Vanegas MD LAB BLOOD ORDERABLES Final Resul t [facility] [address] [place] [address], [facility] * (ABNORMAL) Comprehensive Metabolic Panel (10/06/2024 7:37 AM EDT) Sodium 129(L) 133 - 146 mmol/L 10/06/2024 8:16 AM EDT [facility] Potassium 4.4 3.5 - 5.3 mmol/L 10/06/2024 8:16 AM EDT [facility] Chloride 100 98 - 110 mmol/L 10/06/2024 8:16 AM EDT [facility] CO2 18(L) 21 - 33 mmol/L 10/06/2024 8:16 AM EDT [facility] Anion Gap 11 3 - 16 mmol/L 10/06/2024 8:16 AM EDT [facility] BUN 62(H) 7 - 25 mg/dL 10/06/2024 8:16 AM EDT [facility] Creatinine 3.40(H) 0.60 - 1.30 mg/dL 10/06/2024 8:16 AM EDT [facility] Glucose 98 70 - 100 mg/dL 10/06/2024 8:16 AM EDT [facility] Calcium 9.5 8.6 - 10.3 mg/dL 10/06/2024 8:16 AM EDT [facility] Total Bilirubin 14.3(H) 0.0 - 1.5 mg/dL 10/06/2024 8:16 AM EDT [facility] AST 57(H) 13 - 39 U/L 10/06/2024 8:16 AM EDT [facility] ALT 29 7 - 52 U/L 10/06/2024 8:16 AM EDT [facility] Alkaline Phosphatase 158(H) 36 - 125 U/L 10/06/2024 8:16 AM EDT [facility] Total Protein 5.6(L) 6.4 - 8.9 g/dL 10/06/2024 8:16 AM EDT [facility] Albumin 3.6 3.5 - 5.7 g/dL 10/06/2024 8:16 AM EDT [facility] Osmolality, Calculated 286 278 - 305 mOsm/kg 10/06/2024 8:16 AM EDT [facility] EGFR 22 10/06/2024 8:16 AM EDT [facility] Comment:As of 2021, the estimated GFR [...] MD LAB BLOOD ORDERABLES Final Resul t [facility] [address] [place] [address], [facility] * (ABNORMAL) Venous Blood Gas, Line/Syringe, STAT (10/06/2024 7:37 AM EDT) PH-Line Draw 7.27(L) 7.32 - 7.42 10/06/2024 7:46 AM EDT [facility] PCO2-Line Draw 36(L) 41 - 51 mm Hg 10/06/2024 7:46 AM EDT [facility] PO2-Line Draw 44(H) 25 - 40 mm Hg 10/06/2024 7:46 AM EDT [facility] HCO3-Line Draw 17(L) 24 - 28 mmol/L 10/06/2024 7:46 AM EDT [facility] CO2 Content-Line Draw 18(L) 25 - 29 mmol/L 10/06/2024 7:46 AM EDT [facility] Base Excess-Line Draw -9.6(L) -2.0 - 3.0 mmol/L 10/06/2024 7:46 AM EDT [facility] %HBO2-Line Draw 69.8 40.0 - 70.0 % 10/06/2024 7:46 AM EDT [facility] Carboxyhgb-Ludivina e Draw 0.7 % 10/06/2024 7:46 AM EDT [facility] Comment: CARBOXYHEMOGLOBIN (CO) REFERENCE RANGES: Non-Smokers: <2 % Smokers: <8 % TOXIC: >20 % Methemoglobin- Line Draw 0.3 0.0 - 1.5 % 10/06/2024 7:46 AM EDT [facility] Reduced Hemoglobin-Ludivina e Draw 29.2(H) 0.0 - 5.0 % 10/06/2024 7:46 AM EDT [facility] Venous, Line Draw 10/06/2024 7:37 AM EDT 10/06/2024 7:43 AM EDT Chari Vanegas MD LAB BLOOD ORDERABLES Final Resul t [facility] [address] [place] [address], [facility] * (ABNORMAL) Venous Blood Gas, Line/Syringe, STAT (10/06/2024 4:03 AM EDT) PH-Line Draw 7.21(L) 7.32 - 7.42 10/06/2024 4:16 AM EDT [facility] PCO2-Line Draw 41 41 - 51 mm Hg 10/06/2024 4:16 AM EDT [facility] PO2-Line Draw 32 25 - 40 mm Hg 10/06/2024 4:16 AM EDT [facility] HCO3-Line Draw 16(L) 24 - 28 mmol/L 10/06/2024 4:16 AM EDT [facility] CO2 Content-Line Draw 18(L) 25 - 29 mmol/L 10/06/2024 4:16 AM EDT [facility] Base Excess-Line Draw -10.8(L) -2.0 - 3.0 mmol/L 10/06/2024 4:16 AM EDT [facility] %HBO2-Line Draw 47.5 40.0 - 70.0 % 10/06/2024 4:16 AM EDT [facility] Carboxyhgb-Ludivina e Draw 2.0 % 10/06/2024 4:16 AM EDT [facility] Comment: CARBOXYHEMOGLOBIN (CO) REFERENCE RANGES: Non-Smokers: <2 % Smokers: <8 % TOXIC: >20 % Methemoglobin- Line Draw 0.7 0.0 - 1.5 % 10/06/2024 4:16 AM EDT [facility] Reduced Hemoglobin-Ludivina e Draw 49.8(H) 0.0 - 5.0 % 10/06/2024 4:16 AM EDT [facility] Venous, Line Draw 10/06/2024 4:03 AM EDT 10/06/2024 4:12 AM EDT Bisi Hernandez DO LAB BLOOD ORDERABLES Final Resul t Performing Organization Address [facility] de Phone Number [facility] [address] [employer] [facility]. [address] * (ABNORMAL) Protime-INR (10/06/2024 4:01 AM EDT) Protime 21.3(H) 12.1 - 15.1 seconds 10/06/2024 4:40 AM EDT [facility] INR 1.8(H) 0.9 - 1.1 10/06/2024 4:40 AM EDT [facility] Comment: RECOMMENDED THERAPEUTIC RANGES USING INR : Stable oral anticoagulant therapy: 2.0 - 3.0 Mechanical prosthetic heart valve: 2.5 - 3.5 Recurrent acute myocardial infarction: 2.5 - 3.5 Plasma 10/06/2024 4:01 AM EDT 10/06/2024 4:11 AM EDT [employer] DO LAB BLOOD ORDERABLES Final Resul t Performing Organization Address [facility] de Phone Number [facility] [address] [facility]. [address] * (ABNORMAL) Hepatic Function Panel, AM (10/06/2024 4:01 AM EDT) Total Bilirubin 14.7(H) 0.0 - 1.5 mg/dL 10/06/2024 4:57 AM EDT [facility] Bilirubin, Direct 7.08(H) 0.00 - 0.40 mg/dL 10/06/2024 4:57 AM EDT [facility] AST 60(H) 13 - 39 U/L 10/06/2024 4:57 AM EDT [facility] ALT 31 7 - 52 U/L 10/06/2024 4:57 AM EDT [facility] Alkaline Phosphatase 162(H) 36 - 125 U/L 10/06/2024 4:57 AM EDT [facility] Total Protein 5.3(L) 6.4 - 8.9 g/dL 10/06/2024 4:57 AM EDT [facility] Albumin 3.4(L) 3.5 - 5.7 g/dL 10/06/2024 4:57 AM EDT [facility] Bilirubin, Indirect 7.62(H) 0.00 - 1.10 mg/dL 10/06/2024 4:57 AM EDT [facility] Plasma 10/06/2024 4:01 AM EDT 10/06/2024 4:22 AM EDT [employer] DO LAB BLOOD ORDERABLES Final Resul t Performing Organization Address City/[facility] [[email or web address]] Co de Phone Number [facility] [address] [facility]. [address] * Magnesium (10/06/2024 4:01 AM EDT) Magnesium 1.8 1.5 - 2.5 mg/dL 10/06/2024 4:57 AM EDT [facility] Plasma 10/06/2024 4:01 AM EDT 10/06/2024 4:22 AM EDT [facility] BLOOD ORDERABLES Final Resul t Performing Organization Address [facility] de Phone Number [facility] [address] * (ABNORMAL) Renal Function Panel w/EGFR (10/06/2024 4:01 AM EDT) Sodium 129(L) 133 - 146 mmol/L 10/06/2024 4:57 AM EDT [facility] Potassium 4.7 3.5 - 5.3 mmol/L 10/06/2024 4:57 AM EDT [facility] Chloride 100 98 - 110 mmol/L 10/06/2024 4:57 AM EDT [facility] CO2 16(L) 21 - 33 mmol/L 10/06/2024 4:57 AM EDT [facility] Anion Gap 13 3 - 16 mmol/L 10/06/2024 4:57 AM EDT [facility] BUN 61(H) 7 - 25 mg/dL 10/06/2024 4:57 AM EDT [facility] Creatinine 3.49(H) 0.60 - 1.30 mg/dL 10/06/2024 4:57 AM EDT [facility] Glucose 104(H) 70 - 100 mg/dL 10/06/2024 4:57 AM EDT [facility] Calcium 9.2 8.6 - 10.3 mg/dL 10/06/2024 4:57 AM EDT [facility] Phosphorus 5.3(H) 2.1 - 4.7 mg/dL 10/06/2024 4:57 AM EDT [facility] Albumin 3.4(L) 3.5 - 5.7 g/dL 10/06/2024 4:57 AM EDT [facility] Osmolality, Calculated 286 278 - 305 mOsm/kg 10/06/2024 4:57 AM EDT [facility] EGFR 22 10/06/2024 4:57 AM EDT [facility] Comment:As of 2021, the estimated GFR [...] DO LAB BLOOD ORDERABLES Final Resul t [facility] [address] [employer] [facility] [employer] [facility]. [place] [address], [facility] * (ABNORMAL) CBC (10/06/2024 4:01 AM EDT) WBC 7.6 3.8 - 10.8 10E3/uL 10/06/2024 5:16 AM EDT [facility] RBC 2.77(L) 4.20 - 5.80 10E6/uL 10/06/2024 5:16 AM EDT [facility] Hemoglobin 10.1(L) 13.2 - 17.1 g/dL 10/06/2024 5:16 AM EDT [facility] Hematocrit 28.4(L) 38.5 - 50.0 % 10/06/2024 5:16 AM EDT [facility] MCV 102.4(H) 80.0 - 100.0 fL 10/06/2024 5:16 AM EDT [facility] MCH 36.4(H) 27.0 - 33.0 pg 10/06/2024 5:16 AM EDT [facility] MCHC 35.5 32.0 - 36.0 g/dL 10/06/2024 5:16 AM EDT [facility] RDW 18.0(H) 11.0 - 15.0 % 10/06/2024 5:16 AM EDT [facility] Platelets 53(L) 140 - 400 10E3/uL 10/06/2024 5:16 AM EDT [facility] Comment:Specimen checked for clots. None detected. MPV 8.4 7.5 - 11.5 fL 10/06/2024 5:16 AM EDT [facility] Whole Blood 10/06/2024 4:01 AM EDT 10/06/2024 4:11 AM EDT us Bisi Hernandez DO LAB BLOOD ORDERABLES Final Resul t [facility] [address] [place] [address], [facility] * Hepatitis C Antibody (10/06/2024 4:01 AM EDT) HCV Ab Nonreactive Nonreactive 10/06/2024 5:12 AM EDT [facility] Comment:Health Department no tified in accordance with reportable infectious disease guidelines. Serum 10/06/2024 4:01 AM EDT 10/06/2024 4:11 AM EDT [facility] - 10/06/2024 5:12 AM EDT Antibodies to HCV not detected; does not exclude the possibility of exposure to HCV. [facility] BLOOD ORDERABLES Final Resul t Performing Organization Address City/[facility]/ZIP Co de Phone Number [facility] [address] * (ABNORMAL) Hepatitis B Surface Antibody, Quantitati (10/06/2024 4:01 AM EDT) Hep B S Ab Reactive( A) Nonreactive 10/06/2024 5:16 AM EDT [facility] HBSAB NUMBER 11.50(H) 0.00 - 7.99 mIU/mL 10/06/2024 5:16 AM EDT [facility] Serum 10/06/2024 4:01 AM EDT 10/06/2024 4:11 AM EDT [facility] - 10/06/2024 5:16 AM EDT Individual is considered immune to HBV infection. [facility] BLOOD ORDERABLES Final Resul t Performing Organization Address [facility] [[email or web address]] Co de Phone Number [facility] [address] [employer] [facility]. [address] * Hepatitis B surface antigen (10/06/2024 4:01 AM EDT) Hep B Surface Ag Nonreactive Nonreactive 10/06/2024 5:07 AM EDT [facility] Comment:Health Department no tified in accordance with reportable infectious disease guidelines. Serum 10/06/2024 4:01 AM EDT 10/06/2024 4:11 AM EDT [facility] - 10/06/2024 5:07 AM EDT Specimen is considered negative for HBsAg. [facility] BLOOD ORDERABLES Final Resul t Performing Organization Address City/[facility]/ZIP Co de Phone Number [facility] [address] [employer] [facility]. [address] * Hepatitis A Antibody Total (10/06/2024 4:01 AM EDT) Anti-HAV Total (IgG + IgM) Nonreactive 10/06/2024 5:08 AM EDT [facility] Serum 10/06/2024 4:01 AM EDT 10/06/2024 4:11 AM EDT Narrative [facility] - 10/06/2024 5:08 AM EDT HAV antibodies not detected [facility] BLOOD ORDERABLES Final Resul t [facility] [address] [employer] [facility]. [address] * Hepatitis A IgM (10/06/2024 4:01 AM EDT) Hep A IgM Nonreactive Nonreactive 10/06/2024 5:02 AM EDT [facility] Serum 10/06/2024 4:01 AM EDT 10/06/2024 4:11 AM EDT Narrative [facility] - 10/06/2024 5:02 AM EDT IgM anti-HAV not detected. Does not exclude the possibility of exposure to or infection with HAV. Levels of IgM anti-HAV may be below the cut-off in early infection. [facility] BLOOD ORDERABLES Final Resul t [facility] [address] [employer] [facility] [employer] [facility]. [address] * (ABNORMAL) Salicylate Level (10/06/2024 4:01 AM EDT) Salicylate Lvl <3(L) 10 - 30 mg/dL 10/06/2024 4:58 AM EDT [facility] Serum 10/06/2024 4:01 AM EDT 10/06/2024 4:22 AM EDT [facility] BLOOD ORDERABLES Final Resul t Performing Organization Address City/[facility] [[email or web address]] Co de Phone Number [facility] [address] [facility]. [address] * AFP Tumor Marker (10/06/2024 4:01 AM EDT) [facility] AFP-Tumor Marker 2.6 0.0 - 9.0 ng/mL 10/06/2024 4:55 AM EDT [facility] Serum 10/06/2024 4:01 AM EDT 10/06/2024 4:22 AM EDT Narrative [facility] - 10/06/2024 4:55 AM EDT The testing method for AFP is a chemiluminescent immunoassay manufactured by [employer] Concentrations of AFP obtained by different assay methods or kits may vary and cannot be used interchangeably. AFP results cannot be interpreted as absolute evidence of the presence or absence of malignant disease. [facility] BLOOD ORDERABLES Final Resul t Performing Organization Address [facility] [[email or web address]] Co de Phone Number [facility] [address] [facility]. [address] * Upper Respiratory Viral/Bacterial Panel-SCRAPER TENDER Only (10/06/2024 3:12 AM EDT) [facility] Adenovirus Not Detected Not Detected 10/06/2024 11:38 PM EDT [facility] Coronavirus (229E,HKU1,NL63,OC 43) Not Detected Not Detected 10/06/2024 11:38 PM EDT [facility] SARS-CoV-2 Not Detected Not Detected 10/06/2024 11:38 PM EDT [facility] Human Metapneumovirus Not Detected Not Detected 10/06/2024 11:38 PM EDT [facility] Human Rhinovirus/Enterov irus Not Detected Not Detected 10/06/2024 11:38 PM EDT [facility] Influenza A Not Detected Not Detected 10/06/2024 11:38 PM EDT [facility] Influenza A H1 Not Detected Not Detected 10/06/2024 11:38 PM EDT [facility] Influenza A/H1-2009 Not Detected Not Detected 10/06/2024 11:38 PM EDT [facility] Influenza A H3 Not Detected Not Detected 10/06/2024 11:38 PM EDT [facility] Influenza B Not Detected Not Detected 10/06/2024 11:38 PM EDT [facility] Parainfluenza 1 Not Detected Not Detected 10/06/2024 11:38 PM EDT [facility] Parainfluenza 2 Not Detected Not Detected 10/06/2024 11:38 PM EDT [facility] Parainfluenza 3 Not Detected Not Detected 10/06/2024 11:38 PM EDT [facility] Parainfluenza 4 Not Detected Not Detected 10/06/2024 11:38 PM EDT [facility] Resp. Syncycial Virus A Not Detected Not Detected 10/06/2024 11:38 PM EDT [facility] Resp. Syncycial Virus B Not Detected Not Detected 10/06/2024 11:38 PM EDT [facility] Chlamydia pneumoniae Not Detected Not Detected 10/06/2024 11:38 PM EDT [facility] Mycoplasma pneumoniae Not Detected Not Detected 10/06/2024 11:38 PM EDT [facility] Comment: The Respiratory Viral-Bacterial Panel is [...] Test results have been sent to the [facility] in accordance with state requirements. For a fact sheet for healthcare providers, see https://www.fda.gov/media/435685/download. For a fact sheet for patients, see https://www.fda.gov/media/944818/download. Nasopharyngeal Swab NASOPHARYNGEAL SWAB / Unknown 10/06/2024 3:12 AM EDT 10/06/2024 5:41 PM EDT Comment:SCRAPER TENDER us Bisi Hernandez DO BODY FLUIDS AND STOOLS ORDERABLE S Final Result [facility] [address] [employer] [facility] [place] [address], [facility] * X-ray Portable Chest (10/06/2024 1:16 [...] 10/06/2024 2:33 AM EDT Bisi Hernandez DO [facility] DIAGNOSTIC IMAGING ORDERABLE S Final Result * Phosphatidylethanol Confirmation, B (10/06/2024 1:04 AM EDT) PETH 16:0/18.1 (POPETH) <10 Cutoff: 10 ng/mL 10/10/2024 3:11 AM EDT [facility] Comment: Phosphatidylethanol (PEth) homologues result interpretation [...] Cutoff: 10 ng/mL 10/10/2024 3:11 AM EDT [facility] Comment: PEth 16:0/18:2 (PLPEth) Reference ranges are not well established PEth Interpretation Negative. 10/10 3:11 AM EDT [facility] Comment: ADDITIONAL INFORMATION This report is intended for use in clinical monitoring and management of patients. It is not intended for use in employment-related testing. This test was developed and its performance characteristics determined by [facility] in a manner consistent with CLIA requirements. This test has not been cleared or approved by the U.S. Food and Drug Administration. Test Performed by: [address] [address] Home Specialist: Kahty Ortiz Ph.D.; CLIA# [id number] Whole Blood 10/06/2024 1:04 AM EDT 10/10/2024 3:11 AM EDT [facility] BLOOD ORDERABLES Final Resul t Performing Organization Address City/[facility] [[email or web address]] Co de Phone Number [facility] [address] * (ABNORMAL) Acetaminophen Level (10/06/2024 1:04 AM EDT) Acetaminophen Level <10(L) 10 - 30 ug/mL 10/06/2024 2:08 AM EDT [facility] Serum 10/06/2024 1:04 AM EDT 10/06/2024 1:30 AM EDT [facility] BLOOD ORDERABLES Final Resul t Performing Organization Address [facility] de Phone Number [facility] [address] [place] [address]. [address] * Ethanol, Serum (10/06/2024 1:04 AM EDT) Ethanol <10 0 - 10 mg/dL 10/06/2024 2:08 AM EDT [facility] Serum 10/06/2024 1:04 AM EDT 10/06/2024 1:30 AM EDT [facility] BLOOD ORDERABLES Final Resul t Performing Organization Address City/[facility] [[email or web address]] Co de Phone Number [facility] [address] [place] [address]. [address] * #2 Blood culture-Peripheral site 2 (10/06/2024 1:04 AM EDT) Culture Result No Growth After 5 Days [facility] Blood BLOOD SPECIMEN / Unknown 10/06/2024 1:04 AM EDT 10/06/2024 4:57 AM EDT Narrative [facility] - 10/11/2024 5:05 AM EDT Suboptimal volume of blood received. Interpret results with caution. Bisi Hernandez DO MICROBIOLOGY - GENERAL ORDERABLE S Final Result Performing Organization Address City/[facility]/ZIP Co de Phone Number [facility] [address] * #1 Blood culture-Peripheral site 1 (10/06/2024 1:04 AM EDT) Culture Result No Growth After 5 Days [facility] Blood BLOOD SPECIMEN / Unknown 10/06/2024 1:04 AM EDT 10/06/2024 4:57 AM EDT Narrative [facility] - 10/11/2024 5:01 AM EDT Suboptimal volume of blood received. Interpret results with caution. Bisi Hernandez DO MICROBIOLOGY - GENERAL ORDERABLE S Final Result Performing Organization Address [facility] [[email or web address]] Co de Phone Number [facility] [address] [place] [address]. [address] * Ammonia (10/06/2024 1:04 AM EDT) Ammonia 77 27 - 90 ug/dL 10/06/2024 2:00 AM EDT [facility] Plasma 10/06/2024 1:04 AM EDT 10/06/2024 1:30 AM EDT Bisi Hernandez DO LAB BLOOD ORDERABLES Final Resul t Performing Organization Address City/[facility]/ZIP Co de Phone Number [facility] [address] [facility]. [address] * Thyroid Function [place] (10/06/2024 1:04 AM EDT) TSH 0.84 0.45 - 4.12 uIU/mL 10/06/2024 2:20 AM EDT [facility] Serum 10/06/2024 1:04 AM EDT 10/06/2024 1:39 AM EDT Bisi Akella DO LAB BLOOD ORDERABLES Final Resul t Performing Organization Address City/[facility]/ZIP Co de Phone Number [facility] [address] * (ABNORMAL) Protime-INR (10/06/2024 1:04 AM EDT) Protime 22.8(H) 12.1 - 15.1 seconds 10/06/2024 1:48 AM EDT [facility] INR 1.9(H) 0.9 - 1.1 10/06/2024 1:48 AM EDT [facility] Comment: RECOMMENDED THERAPEUTIC RANGES USING INR : Stable oral anticoagulant therapy: 2.0 - 3.0 Mechanical prosthetic heart valve: 2.5 - 3.5 Recurrent acute myocardial infarction: 2.5 - 3.5 Plasma 10/06/2024 1:04 AM EDT 10/06/2024 1:30 AM EDT us [employer] DO LAB BLOOD ORDERABLES Final Resul t Performing Organization Address [facility]/ZIP Co de Phone Number [facility] [address] * Lactic Acid, STAT (10/06/2024 1:04 AM EDT) Lactate 1.2 0.5 - 2.2 mmol/L 10/06/2024 1:59 AM EDT [facility] Plasma 10/06/2024 1:04 AM EDT 10/06/2024 1:30 AM EDT us [employer] DO LAB BLOOD ORDERABLES Final Resul t Performing Organization Address City/[facility]/ZIP Co de Phone Number [facility] [address] [facility]. [address] * (ABNORMAL) CBC, STAT (10/06/2024 1:04 AM EDT) WBC 7.9 3.8 - 10.8 10E3/uL 10/06/2024 2:36 AM EDT [facility] RBC 2.76(L) 4.20 - 5.80 10E6/uL 10/06/2024 2:36 AM EDT [facility] Hemoglobin 9.9(L) 13.2 - 17.1 g/dL 10/06/2024 2:36 AM EDT [facility] Hematocrit 28.0(L) 38.5 - 50.0 % 10/06/2024 2:36 AM EDT [facility] MCV 101.5(H) 80.0 - 100.0 fL 10/06/2024 2:36 AM EDT [facility] MCH 35.7(H) 27.0 - 33.0 pg 10/06/2024 2:36 AM EDT [facility] MCHC 35.2 32.0 - 36.0 g/dL 10/06/2024 2:36 AM EDT [facility] RDW 17.9(H) 11.0 - 15.0 % 10/06/2024 2:36 AM EDT [facility] Platelets 58(L) 140 - 400 10E3/uL 10/06/2024 2:36 AM EDT [facility] Comment: Specimen checked for clots. None detected. Slide Reviewed for PLT Clumps. None Seen. MPV 8.2 7.5 - 11.5 fL 10/06/2024 2:36 AM EDT [facility] Whole Blood 10/06/2024 1:04 AM EDT 10/06/2024 1:31 AM EDT us Bisi Hernandez DO LAB BLOOD ORDERABLES Final Resul t [facility] [address] [place] [address], [facility] * (ABNORMAL) Comprehensive Metabolic Panel (10/06/2024 1:04 AM EDT) Sodium 127(L) 133 - 146 mmol/L 10/06/2024 2:05 AM EDT [facility] Potassium 4.5 3.5 - 5.3 mmol/L 10/06/2024 2:05 AM EDT [facility] Chloride 99 98 - 110 mmol/L 10/06/2024 2:05 AM EDT [facility] CO2 18(L) 21 - 33 mmol/L 10/06/2024 2:05 AM [facility] Anion Gap 10 3 - 16 mmol/L 10/06/2024 2:05 AM [facility] BUN 59(H) 7 - 25 mg/dL 10/06/2024 2:05 AM [facility] Creatinine 3.54(H) 0.60 - 1.30 mg/dL 10/06/2024 2:05 AM [facility] Glucose 116(H) 70 - 100 mg/dL 10/06/2024 2:05 AM [facility] Calcium 9.0 8.6 - 10.3 mg/dL 10/06/2024 2:05 AM [facility] Total Bilirubin 14.8(H) 0.0 - 1.5 mg/dL 10/06/2024 2:05 AM [facility] AST 61(H) 13 - 39 U/L 10/06/2024 2:05 AM [facility] ALT 33 7 - 52 U/L 10/06/2024 2:05 AM [facility] Alkaline Phosphatase 174(H) 36 - 125 U/L 10/06/2024 2:05 AM [facility] Total Protein 5.2(L) 6.4 - 8.9 g/dL 10/06/2024 2:05 AM [facility] Albumin 3.3(L) 3.5 - 5.7 g/dL 10/06/2024 2:05 AM [facility] Osmolality, Calculated 282 278 - 305 mOsm/kg 10/06/2024 2:05 AM [facility] EGFR 21 10/06/2024 2:05 AM [facility] Comment:As of 2021, the [...] DO LAB BLOOD ORDERABLES Final Resul t [facility] [address] [place] [address], [facility] documented in this encounter [...] 10 mg nitroGLYCERIN in D5W injection - [employer] ONLY Intra-op PRN, Starting on Sun10/14/24 at [...] documented as of this encounter Care Teams Viner Operator Relationship Specialty Start Date End Date Enedina Mcguire NP [address] [place] [address] PCP - General Internal Medicine 10/05/24 documented as of this encounter
--- OUTSIDE RECORDS SUMMARY | 2024-10-20 09:10 | XMS_ITS | Encounter Summary ---
Author Organization [facility] Address [facility] [place] [address] Care Team Providers Care Foot Tender Name Role Phone Enedina Mcguire NP Primary Care Provider [phone] Source Comments This information has been disclosed [...] release of HIV test results or diagnoses. [id number] Encounter Details Date Type Department Care Team (Latest Contact Info) Description 10/20/2024 9:10 AM EDT - 10/20/2024 11:59 PM EDT Hospital Encounter [facility] Radiology [address] [place] [phone] System, Provider Not In Discharge Disposition: Home [...] Recorded In the past 12 months has [employer], gas, oil, or water [employer] threatened to shut off services in your [...] any time in the past 12 m [facility], were you homeless or living in a nursing home (including now)? No 10/06/2024 Yearly Questionnaire [...] AM EDT 10/17/2024 naloxone (NARCAN) 4 mg/actuation [place] Apply 1 spray in one nostril if [...] Description 12/05/2024 8:01 AM EDT Hospital Encounter [facility] ENDOSCOPY [address] [place] [address] Chris Orosco MD [address] [place] [phone] 12/05/2024 8:01 AM EDT - 12/05/2024 8:31 AM EDT Surgery [facility] ENDOSCOPY [address] [place] [address] Chris Orosco MD [address] [place] [phone] EGD Scheduled Procedures Name Priority Associated Diagnoses [...] documented as of this encounter Care Teams Foot Tender Relationship Specialty Start Date End Date Enedina Mcguire NP [address] [place] [address] PCP - General Internal Medicine 10/05/24 documented as of this encounter
--- OUTSIDE RECORDS SUMMARY | 2024-10-20 09:10 | XMS_ITS | Encounter Summary ---
Author Organization [facility] Address [facility] [place] [address] Care Team Providers Care Curriculum And Assessment Director Name Role Phone Enedina Mcguire NP Primary Care Provider [phone] Source Comments This information has been disclosed [...] release of HIV test results or diagnoses. [id number] Encounter Details Date Type Department Care Team (Latest Contact Info) Description 10/20/2024 9:10 AM EDT - 10/20/2024 11:59 PM EDT Hospital Encounter [facility] Radiology [address] [place] [phone] System, Provider Not In Discharge Disposition: Home [...] Recorded In the past 12 months has [employer], gas, oil, or water [employer] threatened to shut off services in your [...] AM EDT 10/17/2024 naloxone (NARCAN) 4 mg/actuation [place] Apply 1 spray in one nostril if [...] Description 12/05/2024 8:01 AM EDT Hospital Encounter [facility] ENDOSCOPY [address] [place] [address] Chris Orosco MD [address] [place] [phone] 12/05/2024 8:01 AM EDT - 12/05/2024 8:31 AM EDT Surgery [facility] ENDOSCOPY [address] [place] [address] Chris Orosco MD [address] [place] [phone] EGD Scheduled Procedures Name Priority Associated Diagnoses [...] documented as of this encounter Care Teams Curriculum And Assessment Director Relationship Specialty Start Date End Date Enedina Mcguire NP [address] [place] [address] PCP - General Internal Medicine 10/05/24 documented as of this encounter
--- OUTSIDE RECORDS SUMMARY | 2024-10-20 09:10 | XMS_ITS | Encounter Summary ---
Author Organization [facility] Address [facility] [place] [address] Care Team Providers Care Interpretative Dancer Name Role Phone Enedina Mcguire NP Primary Care Provider [phone] Source Comments This information has been disclosed [...] release of HIV test results or diagnoses. [id number] Encounter Details Date Type Department Care Team (Latest Contact Info) Description 10/20/2024 9:10 AM EDT - 10/20/2024 11:59 PM EDT Hospital Encounter [facility] Radiology [address] [place] [phone] System, Provider Not In Discharge Disposition: Home [...] Recorded In the past 12 months has [employer], gas, oil, or water [employer] threatened to shut off services in [...] AM EDT 10/17/2024 naloxone (NARCAN) 4 mg/actuation [place] Apply 1 spray in one nostril if [...] Description 12/05/2024 8:01 AM EDT Hospital Encounter [facility] ENDOSCOPY [address] [place] [address] Chris Orosco MD [address] [place] [phone] 12/05/2024 8:01 AM EDT - 12/05/2024 8:31 AM EDT Surgery [facility] ENDOSCOPY [address] [place] [address] Chris Orosco MD [address] [place] [phone] EGD Scheduled Procedures Name Priority Associated Diagnoses [...] documented as of this encounter Care Teams Interpretative Dancer Relationship Specialty Start Date End Date Enedina Mcguire NP [address] [place] [address] PCP - General Internal Medicine 10/05/24 documented as of this encounter
--- OUTSIDE RECORDS SUMMARY | 2024-10-20 09:10 | XMS_ITS | Encounter Summary ---
Author Organization [facility] Address [facility] [place] [address] Care Team Providers Care Wire Mesh Gate Assembler Name Role Phone Enedina Mcguire NP Primary Care Provider [phone] Source Comments This information has been disclosed [...] release of HIV test results or diagnoses. [id number] Encounter Details Date Type Department Care Team (Latest Contact Info) Description 10/20/2024 9:10 AM EDT - 10/20/2024 11:59 PM EDT Hospital Encounter [facility] Radiology [address] [place] [phone] System, Provider Not In Discharge Disposition: Home [...] Recorded In the past 12 months has [email or web address], gas, oil, or water [employer] threatened to shut off services in your [...] AM EDT 10/17/2024 naloxone (NARCAN) 4 mg/actuation [place] Apply 1 spray in one nostril if [...] Description 12/05/2024 8:01 AM EDT Hospital Encounter [facility] ENDOSCOPY [address] [place] [address] Chris Orosco MD [address] [place] [address] [phone] 12/05/2024 8:01 AM EDT - 12/05/2024 8:31 AM EDT Surgery [facility] ENDOSCOPY [address] [place] [address] Chris Orosco MD [address] [place] [address] [phone] EGD Scheduled Procedures Name Priority Associated Diagnoses [...] documented as of this encounter Care Teams Wire Mesh Gate Assembler Relationship Specialty Start Date End Date Enedina Mcguire NP [address] [place] [address] PCP - General Internal Medicine 10/05/24 documented as of this encounter
--- OUTSIDE RECORDS SUMMARY | 2024-10-20 09:10 | XMS_ITS | Encounter Summary ---
Author Organization [facility] Address [facility] [place] [address] Care Team Providers Care Store Warehouse Associate Name Role Phone Enedina Mcguire NP Primary Care Provider [phone] Source Comments This information has been disclosed [...] release of HIV test results or diagnoses. [id number] Encounter Details Date Type Department Care Team (Latest Contact Info) Description 10/20/2024 9:10 AM EDT - 10/20/2024 11:59 PM EDT Hospital Encounter [facility] Radiology [address] [place] [address] System, Provider Not In Discharge Disposition: Home [...] Recorded In the past 12 months has [employer], gas, oil, or water [employer] threatened to shut off services in your [...] AM EDT 10/17/2024 naloxone (NARCAN) 4 mg/actuation [place] Apply 1 spray in one nostril if [...] Description 12/05/2024 8:01 AM EDT Hospital Encounter [facility] ENDOSCOPY [address] [place] [address] Chris Orosco MD [address] [place] [address] [phone] 12/05/2024 8:01 AM EDT - 12/05/2024 8:31 AM EDT Surgery [facility] ENDOSCOPY [address] [place] [address] Chris Orosco MD [address] [place] [phone] EGD Scheduled Procedures Name Priority Associated Diagnoses [...] documented as of this encounter Care Teams Store Warehouse Associate Relationship Specialty Start Date End Date Enedina Mcguire NP [address] [place] [address] PCP - General Internal Medicine 10/05/24 documented as of this encounter
--- OUTSIDE RECORDS SUMMARY | 2024-10-20 09:10 | XMS_ITS | Encounter Summary ---
Author Organization [facility] Address [facility] [place] [address] Care Team Providers Care Exercise Equipment Specialist Name Role Phone Enedina Mcguire NP Primary Care Provider [phone] Source Comments This information has been disclosed [...] release of HIV test results or diagnoses. [id number] Encounter Details Date Type Department Care Team (Latest Contact Info) Description 10/20/2024 9:10 AM EDT - 10/20/2024 11:59 PM EDT Hospital Encounter [facility] Radiology [address] [place] [address] System, Provider Not In Discharge Disposition: Home [...] Recorded In the past 12 months has [employer], gas, oil, or water [employer] threatened to shut off services in your [...] AM EDT 10/17/2024 naloxone (NARCAN) 4 mg/actuation [place] Apply 1 spray in one nostril if [...] Description 12/05/2024 8:01 AM EDT Hospital Encounter [facility] ENDOSCOPY [address] [place] [address] Chris Orosco MD [address] [place] [phone] 12/05/2024 8:01 AM EDT - 12/05/2024 8:31 AM EDT Surgery [facility] ENDOSCOPY [address] [place] [address] Chris Orosco MD [address] [place] [phone] EGD Scheduled Procedures Name Priority Associated Diagnoses [...] documented as of this encounter Care Teams Exercise Equipment Specialist Relationship Specialty Start Date End Date Enedina Mcguire NP [address] [place] [address] PCP - General Internal Medicine 10/05/24 documented as of this encounter
--- OUTSIDE RECORDS SUMMARY | 2024-10-20 09:10 | XMS_ITS | Encounter Summary ---
Author Organization [facility] Address [facility] [place] [address] Care Team Providers Care Filter Press Pumper Name Role Phone Enedina Mcguire NP Primary Care Provider [phone] Source Comments This information has been disclosed [...] release of HIV test results or diagnoses. [id number] Encounter Details Date Type Department Care Team (Latest Contact Info) Description 10/20/2024 9:10 AM EDT - 10/20/2024 11:59 PM EDT Hospital Encounter [facility] Radiology [address] [place] [phone] System, Provider Not In Discharge Disposition: Home [...] Recorded In the past 12 months has [employer], gas, oil, or water [employer] threatened to shut off services in your [...] any time in the past 12 m [facility], were you homeless or living [...] AM EDT 10/17/2024 naloxone (NARCAN) 4 mg/actuation [place] Apply 1 spray in one nostril if [...] Description 12/05/2024 8:01 AM EDT Hospital Encounter [facility] [address] [place] [address] Chris Orocso MD [address] [place] [phone] 12/05/2024 8:01 AM EDT - 12/05/2024 8:31 AM EDT Surgery [facility] [address] [place] [address] Chris Orosco MD [address] [place] [phone] EGD Scheduled Procedures Name Priority Associated Diagnoses [...] documented as of this encounter Care Teams Filter Press Pumper Relationship Specialty Start Date End Date Enedina Mcguire NP [address] [place] [address] PCP - General Internal Medicine 10/05/24 documented as of this encounter
--- OUTSIDE RECORDS SUMMARY | 2024-10-25 20:46 | XMS_ITS | Encounter Summary ---
Author Organization [facility] Address [address] [place] [address] Care Team Providers Care Oracle Business Analyst Name Role Phone Enedina Mcguire NP Primary Care Provider + [phone] Alicia Pantoja RN Unavailable Unavail able Source [...] release of HIV test results or diagnoses. [id number] Reason for Referral * Surgical (Routine) - Authorized Specialty Diagnoses / Procedures Referred By Shane hernadez Referred To Contact Surgery Diagnoses Acute kidney injury superimposed on CKD (CMS-HCC) Procedures Case request operating room: TRANSPLANT KIDNEY with bile duct reconstruction Sveta Judge MD [address] [place] [address] Phone: tel: fax: Referral ID Status Reason Start Date Expiration Date V isits Requested Visits Authorized [id number] Authorized 10/26/2024 04/24/2025 1 1 Reason for Visit * Auth/Cert (Routine) Specialty Diagnoses / Procedures Referred By Shane hernadez Referred To Contact Surgical Intensive Care Diagnoses Liver transplant recipient (CMS-HCC) cirrhosis and CKD Procedures LIVER-KIDNEY TRANSPLANT [facility] SIC [address] [place] [address] Phone: tel: Referral ID Status Reason Start Date Expiration Date Visits Re quested Visits Authorized [id number] 1 1 Encounter Details Date Type Department Care Team (Latest Contact Info) Description 10/25/2024 8:46 PM EDT - 11/02/2024 6:23 PM EDT Hospital Encounter [address] [place] [address] Harvey Domínguez III, MD [address] [place] [address] Lydia Sanchez MD [address] [facility] Liver/[place] [address] Acute kidney injury superimposed on CKD ([facility]) (Primary Dx); Prophylactic antibiotic; Prolonged QT interval; Immunosuppression ([facility]); Abdominal pain, unspecified abdominal location Discharge Disposition: [...] Recorded In the past 12 months has [place], [place] Antibodies, or water [place] threatened to shut off services in your [...] up appointments. Diet: Regular diet Drain/Dressing/Wound Care: [place] will be removed in clinic approximately 3-4 [...] kept under 2 gm/day. Please discuss withyour pharmacy coordinator if you have any question about appropriate dose to take. Other Instructions: Call post-liver transplant clinic with questions [phone] or call [facility] at [phone] and ask for the liver clinical research nurse coordinator vice president precision market insights if you experience any of the following: [...] Department Center 11/04/2024 8:40 AM [facility]TRA SURGERY, [facility] 11/04/2024 10:10 AM [facility]TRA HEPATORENAL [facility] 11/25/2024 9:00 AM NAA Merida [facility] URO MAB MAB 12/02/2024 2:00 PM Bossman Huffman MD [facility] MARIANGEL MAB [facility] 02/25/2025 10:50 AM Bruno Gonzalez MD [...] EDT 10/27/2024 lancets (ACCU-CHEK SOFTCLIX LANCETS) [facility] Use to test blood sugar up to 4 times a day. 100 each 11 11/02/2024 10:20 AM EDT 10/27/2024 levothyroxine (SYNTHROID) 75 MCG tablet Take 1 tablet (75 mcg total) by mouth every morning before breakfast. linezolid (ZYVOX) 600 mg tablet Take 1 tablet (600 mg total) by mouth 2 times a day. 28 tablet 11/02/2024 3:06 PM EDT 11/02/2024 loratadine (CLARITIN) 10 mg tablet Take 1 [...] capsule 5 10/27/2024 naloxone (NARCAN) 4 mg/actuation [place] Apply 1 spray in one nostril if [...] 238 g 11/02/2024 10:20 AM EDT 10/27/2024 predniSONE (DELTASONE) 5 MG tablet Take 4 tablets (20 mg total) by mouth daily. 120 tablet 2 11/02/2024 10:20 AM EDT 10/27/2024 senna-docusate (SENNOSIDES-DOCUS [...] Use as directed 600 capsule 5 11/02/2024 torsemide (DEMADEX) 20 MG tablet Take 1 tablet (20 mg total) by mouth daily. 30 tablet 11/02/2024 valGANciclovir (VALCYTE) 450 mg tablet Take 1 tablet (450 mg total) by mouth daily. 30 tablet 2 11/02/2024 10:20 AM EDT 10/27/2024 HYDROmorphone (DILAUDID) 2 MG tabletIndications :Abdominal pain, unspecified abdominal location Take 1 tablet (2 mg total) by mouth every 6 hours as needed for up to 7 days. 28 tablet 11/02/2024 10:20 AM EDT 10/31/2024 5 sodium bicarbonate 650 MG tablet Take 2 tablets (1,300 mg total) by mouth 2 times a day. 28 tablet 11/02/2024 10:20 AM EDT 10/31/2024 5 documented as of this encounter Progress Notes * Shaji Gamino, PharmD - 11/02/2024 10:34 AM EDT Transplant Pharmacy Note Discharge Medication Education, Evaluation and Transition Name: Blair Gilbert Discharge prescriptions were dispensed from Discharge Pharmacy, other than tacrolimus and mycophenolate which were dispensed through [facility] Specialty per insurance requirements. Patient's confirms [...] fair Expected caregiver involvement?: is primary med wireless development manager Need for additional education in clinic?: routine reinforcement only Future medications to be obtained from, if known (select one): Tac/MMF to be filled from [facility] Specialty Pharmacy Financial concerns (if any): [...] mL, R-2 lancets (ACCU-CHEK SOFTCLIX LANCETS) [facility] Use to test blood sugar up to [...] R-0 pen needle, diabetic 32 gauge x /32 [...] by mouth daily for 24 days. Last 11/26/24, Starting Sun11/02/2024, Until Sun11/26/2024, Normal, Disp-24 [...] Disp-30 tablet, R-0 naloxone (NARCAN) 4 mg/actuation [place] Apply 1 spray in one nostril if [...] Comments: Reason for Stopping: Eduardo Gamino, Pharm.D., [facility] Solid Organ Transplant Clinical Specialist Contact via Smart Balloon Secure Chat * Froylan Hendrickson MD - 11/01/2024 8:04 AM EDT Liver Transplant Surgery Progress Note Name: Blair Gilbert CSN: [id number] Date: 11/01/2024 8:06 AM OR Date: 10/25/2024 [...] at 10/31/2024 4:38 PM EDT US Duplex Qzg-Shb-Fuvsump Comp Result Date: 10/31/2024 IMPRESSION: RIGHT UPPER [...] 10/25/2024 - 10/27/2024. Plan: Liver transplant recipient ([facility]) [Z94.4] Neuro: - Multimodal pain control: tylenol, [...] Tacrolimus BID PPX: SQH, SCDs DISPO: floor FRYOLAN HENDRICKSON MD Transplant Surgery 8:06 AM 11/01/2024 [...] MD PhD Transplant Surgery * Ben Weiss, DMITRY - 10/31/2024 3:24 PM EDT TXP - Follow Up [facility] Medical Nutrition Therapy Transplant Brief Note Diet Order/Nutrition Support: Diet/Nutrition Orders Diet Regular(7) high calorie 3000 kcal a day Frequency: Effective Now Number of Occurrences: Until Specified Order Questions: Additional restrictions: high calorie 3000 kcal a day Suicide/Behavior Risk Modification? No Dietary nutrition supplements Frequency: TID Number of Occurrences: Until Specified Order Questions: Select Supplement: Boost VHC- very high calorie protein supplement ([facility] and [facility] only) Pertinent Information: Pt seen for [...] Based on DBW of 93.1 kg Kcals/day: 5855-8089 (25-30 kcals/kg) Protein g/day: 140-190 (1.5-2.0 g/kg) [...] Keon Dobson - 10/31/2024 2:35 PM EDT [facility] Spiritual Care Volunteer Visit PATIENT NAME: Blair Gilbert ROOM:80/U8025 Taoism Affiliation:Worship Blair Gilbert was visited by a volunteer today. No needs requiring a visit from a staff switchboard manager were expressed at that time. Care Provided: Communion, Prayer/ blessing Please page our service at [phone] as needs arise for patient and/or family. Fr Dean Dobson Worship switchboard manager Spiritual Care Dept * Brittany Horne PT - 10/31/2024 1:42 PM EDT Physical Therapy Reason Patient Not Seen Name: Blair Gilbert : 1985 Attending Physician: Lydia Sanchez MD Admission Diagnosis: Liver transplant recipient ([facility]) [Z94.4] Date: 10/31/2024 Precautions: Precautions: none Reviewed [...] issued by OT: Long-handled sponge, Sock aid, Soft Metals Hand Engraver, Other (comment) Equipment issued by OT comment: leg cilnical scientist Assessment Assessment: Decreased ADL status, Decreased IADLs, [...] IADL task (Goal met and continued 10/31) Fiberglass Boat Assembly Supervisor Goal : Pt will complete bathing assessment and transfer care home goal to be met in: 2 weeks [...] packing; Surgeon: Harvey Domínguez III, MD; Location: [facility]; Service: Transplant; Laterality: N/A; [1] Patient Active Problem List Diagnosis Decompensated cirrhosis ([facility]) Acute kidney injury superimposed on CKD ([facility]) Alcohol use disorder Metabolic encephalopathy Hypertension Other hyperlipidemia Thrombocytopenia ([facility]) Renal mass, left Abdominal pain Hypokalemia CKD (chronic kidney disease) stage 4, GFR 15-29 ml/min ([facility]) Metabolic acidosis with normal anion gap and bicarbonate losses GERD (gastroesophageal reflux disease) Hypothyroidism Itching Anemia BRBPR (bright red blood per rectum) SBP (spontaneous bacterial peritonitis) ([facility]) C Diff Diarrhea C. difficile diarrhea Neck [...] HYDROmorphone, ondansetron Intake/Output last 3 shifts: Date 10/30/24 07 - 10/31/24 0659 10/31/24 07 - 11/01/24 0659 Shift 6980-3005 2702-3257 1161-9351 24 Hour Total 8864-4630 1604-2654 6807-5593 24 Hour Total INTAKE P.O. 240 240 P.O. 240 240 Shift Total(mL/kg) 240(1.9) 240(1.9) OUTPUT Urine(mL/kg/hr) 1850(1.8) 600(0.6) 600(0.6) 3050(1) 350 350 Urine 800 812 223 9005 350 350 Urine Occurrence 2 x 2 [...] with further concerns Lavell Kramer MD 10/31/[phone] * Priti Geiger CNP - 10/31/2024 10:06 AM EDT Liver Transplant Surgery Progress Note Name: Blair Gilbert CSN: [id number] Date: 10/31/2024 10:06 AM OR Date: 10/25/2024 [...] 10/28/24 1109 LACTATE 0.3* Imaging US Duplex Uzf-Hbx-Vkfzeim Comp Result Date: 10/28/2024 IMPRESSION: ABDOMINAL ULTRASOUND [...] 10/25/2024 - 10/27/2024. Plan: Liver transplant recipient ([facility]) [Z94.4] Neuro: - Multimodal pain control: tylenol, [...] Transplant Nephrology Progress Note Patient: Blair Gilbert [id number] 8025/U8025 Date of Admit: 10/25/2024. 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 Lauren Santos, SAMSON, PHARMACY CLINICAL COORDINATOR, GREENHOUSE STAFF- Transplant Nephrology [phone] Preferred contact: secure chat The HPI, ROS, [...] 0659 10/30/24 07 - 10/31/24 0659 Shift 3357-8761 9594-4621 8610-7917 24 Hour Total 1087-6644 3454-7468 8241-1515 24 Hour Total INTAKE P.O. 240 240 480 P.O. 240 240 480 IV Piggyback 87.2 87.2 Volume (mL) (micafungin (MYCAMINE) 50 mg in sodium chloride 0.9 % 100 mL Nxwq7Xxq IVPB) 87.2 87.2 Shift Total(mL/kg) 240(2) 327.2(2.7) 567.2(4.4) OUTPUT Urine(mL/kg/hr) 600(0.6) 1175(1.2) 450(0.4) 2225(0.7) 550 550 Output (mL) (IUC (Berkowitz) Triple-lumen (3-Way) 18 Fr.) 600 0000 467 9955 550 550 Drains 175 245 100 520 [...] month of prophylaxis Lavell Kramer MD 10/30/[phone] * Priti Geiger CNP - 10/30/2024 10:36 AM EDT Liver Transplant Surgery Progress Note Name: Blair Gilbert CSN: [id number] Date: 10/30/2024 10:37 AM OR Date: 10/25/2024 [...] 10 mg, Q4H PRN Recent Labs 10/28/24200310/29/24 05010/30/24 0541 WBC 3.9 7.8 8.1 HGB 8.0* 9.0* 10.1* HCT 23.0* 26.7* 28.8* MCV 86.4 87.4 87.6 PLT 29* 41* 44* Recent Labs 10/28/24 04110/28/24 11010/29/24 0507 10/30/24 0541 AST 44* -- 31 33 ALT 101* -- 88* 71* ALKPHOS 26* -- 51 80 BILITOT 2.3* -- 4.2* 3.6* ALBUMIN 3.1* 3.1* < > 3.5 3.5 3.2* 3.2* BILIDIRECT 1.67* -- 2.85* 1.95* PROT 4.5* -- 5.2* 4.8* < > = values in this interval not displayed. Recent Labs 10/27/24 17110/28/24 0413 10/28/24 1109 INR 1.1 1.1 1.1 [...] 1109 LACTATE 0.5 0.3* Imaging US Duplex Sky-Dvx-Qxitadb Comp Result Date: 10/28/2024 IMPRESSION: ABDOMINAL ULTRASOUND [...] 10/25/2024 - 10/27/2024. Plan: Liver transplant recipient ([facility]) [Z94.4] Neuro: - Multimodal pain control: tylenol, [...] to stall repeat US tomorrow. Albumin -d/c gustavo. PVR Heme: -HGB stable - Transfuse to [...] Transplant Nephrology Progress Note Patient: Blair Gilbert [id number] 8025/U8025 Date of Admit: 10/25/2024. 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 Lauren Santos, SAMSON, PHARMACY CLINICAL COORDINATOR, GREENHOUSE STAFF- Transplant Nephrology [phone] Preferred contact: secure chat The HPI, ROS, [...] EDT Pt seen, examined, and discussed with FURNITURE DIPPER on 10/30/2024. reviewed the chart including the labs and imaging studies. My additional comments below. 39 y.o. 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 S/p SLK 10/25-10/26 Good uop Mild MA, will monitor for now for needs of po bicarb Aaron Gonzalez MD, MEd, FASN * Ben Weiss, RD - 10/29/2024 3:36 PM EDT TXP - Follow Up [facility] Medical Nutrition Therapy Follow-Up Diet Order/Nutrition [...] I/O: +23.3L net volume. 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 Admit Weight: 270 lb (122.5 kg) [...] 10/27/24 1713 10/28/24 0005 10/28/24 0413 10/28/24 11010/29/24 0507 AST 62* 60* -- [...] Based on DBW of 93.1 kg Kcals/day: 1875-8504 (25-30 kcals/kg) Protein g/day: 140-190 (1.5-2.0 g/kg) [...] Dietitian - Solid Organ Transplant Contact via Smart Balloon Chat * Anita Crystal, PT - 10/29/2024 2:04 PM EDT Physical Therapy Initial Assessment Name: Blair Gilbert : 1985 Attending Physician: Harvey Domínguez III, MD Admission Diagnosis: Liver transplant recipient (CMS-HCC) [Z94.4] Date: 10/29/2024 Room: [place] [address] [address] Reviewed Pertinent hospital course: Yes Hospital Course [...] with functional mobility at: 4/10 or less Fiberglass Boat Assembly Supervisor Goal : Pt will ambulate 250' mod [...] as needed upon discharge. Time Start Time: 0849 Stop Time: 09 Time Calculation (min): 38 min Charges $PT [...] Active Problem List Diagnosis Decompensated cirrhosis ([facility]) Acute kidney injury superimposed on CKD ([facility]) Alcohol use disorder Metabolic encephalopathy Hypertension Other hyperlipidemia Thrombocytopenia (CMS-HCC) Renal mass, left Abdominal pain Hypokalemia CKD (chronic kidney disease) stage 4, GFR 15-29 ml/min (CMS-HCC) Metabolic acidosis with normal anion gap and bicarbonate losses GERD (gastroesophageal reflux disease) Hypothyroidism Itching Anemia BRBPR (bright red blood per rectum) SBP (spontaneous bacterial peritonitis) ([facility]) C Diff Diarrhea C. difficile diarrhea Neck pain with history of cervical spinal surgery * Shanel Pabon, OT - 10/29/2024 1:23 PM EDT Occupational Therapy Initial Assessment Name: Blair Gilbert : 1985 Attending Physician: Harvey Domínguez III, MD Admission Diagnosis: Liver transplant recipient ([facility]) [Z94.4] Date: 10/29/2024 Room: [place] [address] [address] Reviewed Pertinent hospital course: Yes Hospital Course [...] Intervention(s): Ambulation/increased activity;Repositioned Therapist reported pain to: postal carrier Oxygen Supplemental Oxygen Supplemental Oxygen: None (Room [...] distance ambulation in prep for IADL task Fiberglass Boat Assembly Supervisor Goal : Pt will complete bathing assessment and transfer emt intermediate goal to be met in: 2 weeks Collaborated with: Patient Patient/Family Education Educated patient on the role of occupational therapy, OT goals, OT plan of care, discharge recommendation, ADL training, functional mobility training, and the importance of safety and fall preventionstrategies including need for supervision/ assistance with OOB activity and use of call light. patient verbalized understanding. OT Time Start Time: 0849 Stop Time: 0928 Time Calculation (min): 39 min OT Charges [...] III, MD; Location: OR; Service:Transplant; Laterality: N/A; [1] Patient Active Problem List [...] Transplant Nephrology Progress Note Patient: Blair Gilbert [id number] SICU-28/IC- Date of Admit: 10/25/2024. 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 Lauren Santos, SAMSON, PHARMACY CLINICAL COORDINATOR, GREENHOUSE STAFF- Transplant Nephrology [phone] Preferred contact: secure chat The HPI, ROS, [...] EDT Pt seen, examined, and discussed with FURNITURE DIPPER on 10/29/2024. reviewed the chart including the labs and imaging studies. My additional comments below. 39 y.o. 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 S/p SLK 10/25-10/26 Has great UOP 4.2L; 720 drain output Aaron Gonzalez MD, MEd, FASN * Kenyetta Hartman - 10/29/2024 10:07 AM EDT Liver Transplant Surgery Progress Note Name: Blair Gilbert CSN: [id number] Date: 10/29/2024 10:08 AM OR Date: 10/25/2024 [...] mg, Q4H PRN Recent Labs 10/28/24 1449 10/28/24200310/29/24 0507 WBC 4.0 3.9 7.8 HGB 7.5* 8.0* 9.0* HCT 21.4* 23.0* 26.7* MCV 87.6 86.4 87.4 PLT 30* 29* 41* Recent Labs 10/27/24 1713 10/28/24 0005 10/28/24 04110/28/24 11010/29/24 0507 AST 62* 60* -- 44* [...] 110* Recent Labs 10/27/24 0800 10/27/24 1741 06/17/25 1109 LACTATE 0.4* 0.5 0.3* Imaging US Duplex Bzk-Hpv-Ruduljy Comp Result Date: 10/28/2024 IMPRESSION: ABDOMINAL ULTRASOUND [...] at 10/27/2024 10:38 AM EDT US Duplex Olu-Qes-Arijtzu Comp Result Date: 10/27/2024 IMPRESSION: RIGHT UPPER [...] 10/25/2024 - 10/27/2024. Plan: Liver transplant recipient ([facility]) [Z94.4] Neuro: - Multimodal pain control: tylenol, [...] SCDs DISPO: floor KENYETTA HARTMAN, MS4 [facility] General Surgery 10:08 AM 10/29/2024 Cosigned [...] 10/29/2459 10/29/24 07 - 10/30/24 0659 Shift 3268-0375 5825-7023 2131-8401 24 Hour Total 9809-1676 9747-4321 9658-8661 24 Hour Total INTAKE P.O. 240 0 [...] IV infusion) 253.9 374.7 775.6 1404.2 Blood 6481 438 8136 Albumin 750 750 Volume (Transfuse RBC Transfusion Rate: Per dept routine) 310 310 Volume (Transfuse RBC Transfusion Rate: Per dept routine) 271 271 IV Piggyback 918.4 756 46 5969.4 Volume (mL) (micafungin (MYCAMINE) 50 mg in sodium chloride 0.9 % 100 mL Crmh4Txf IVPB) 99.9 99.9 Volume (mL) (albumin human [...] month of prophylaxis Lavell Kramer MD 10/29/[phone] * John Moreno MD - 10/29/2024 6:47 AM EDT SURGICAL ICU PROGRESS NOTE 10/29/2024 6:47 AM Name: Blair Gilbert CSN: [id number] HPI: Blair Gilbert is a 39 y.o. [...] to 4 times a day. DEXCOM G7 ICE GUARD SKATING RINK Misc Use reader as directed. DEXCOM G7 [...] times a day. naloxone (NARCAN) 4 mg/actuation [place] Apply 1 spray in one nostril if [...] 37 37 35 PO2ART 245* 182* 92 VEG5GUQ 22 21* 21* BEART -4.2* -4.8* -4.6* [...] at baseline or with provocation, shows no yfiih-uy-nnka atrial level shunt. - Pulmonary arteries: Systolic [...] MAP 65 on cuff goal - DC hema today # HLD - Not on statin [...] Home pantoprazole 40mg daily, continue Last BM: SALES REPRESENTATIVE GRAPHIC ART - suppository today Bowel regimen: Miralax today, [...] results for input(s): TEGANGLE , TEGKTIME , LIZRGEJT00 , TEGMAXAMPL , TEGRTIME , CBMZ in [...] 111* -- 126* -- 127* < > -- -- -- -- -- -- < [...] in sodium chloride 0.9 % 100 mL Enpd6Dqb IVPB 50 mg Every 24 hours 10/27/2024 -- Admin Instructions: PROTECT FROM LIGHT FLUSH LINE w/NSS PRIOR TO ADMINISTRATION Use Dmwo4Dxn Adapter - Mix Thoroughly Before Administration Route: [...] instability DC today Arterial Line? R radial Levasy- DC today Urinary Catheter? Berkowitz - Reason: [...] BID Continuous Infusions: HYDROmorphone 6 mg/30 mL PROGRAM DEVELOPER norepinephrine 4 mcg/min (10/27/24 2318) sodium chloride [...] Date 10/27/24699 - 10/28/2465810/28/24699 - 10/29/24658 Shift 7427-4867 4462-0631 2619-4033 24 Hour Total 3887-6626 8413-0511 6744-9001 24 Hour Total INTAKE P.O. 0 120 [...] in sodium chloride 0.9 % 100 mL Wtce9Iss IVPB) 100 100 Volume (mL) (albumin human 5%) 126 126 Volume (mL) (potassium chloride (KCl)/Sterile water 50 mL 20 mEq/50 mL IVPB 20 mEq) 100 100 Volume (mL) (AMPicillin 1 g in sodium chloride 0.9% 100 mL IVPB (Ivbj9Ruy)) 100.1 57 42.9 200 Volume (mL) (mycophenolate (CELLCEPT) 500 mg in dextrose 5% in water (D5W) 50 mL IVPB) 50 5.3 55.3 Shift Total(mL/kg) 2079.3(17) 1161(9.5) 787.3(6.4) 4027.6(32.9) OUTPUT Urine(mL/kg/hr) 2195(2.2) 1000(1) 900(0.9) 4095(1.4) 490 490 Urine 360 360 Output (mL) (IUC (Berkowitz) Triple-lumen (3-Way) 18 Fr.) 1835 7665 757 1016 490 490 Emesis/NG output 50 50 Drainage [...] 1.67* Lab 10/28/24 0413 10/25/24 2343 10/25/24 1436 PROTHROMBIN TIME 14.6 < > 21.7* INR [...] month of prophylaxis Lavell Kramer MD 10/28/[phone] * Caron Santos CNP - 10/28/2024 9:00 AM EDT Images from the original note were not included. Transplant Nephrology Progress Note Patient: Blair Gilbert [id number] SICU-28/IC- Date of Admit: 10/25/2024. LOS: 3 days. 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 Lauren Santos, SAMSON, PHARMACY CLINICAL COORDINATOR, GREENHOUSE STAFF- Transplant Nephrology [phone] Preferred contact: secure chat The HPI, ROS, [...] EDT Pt seen, examined, and discussed with FURNITURE DIPPER on 10/28/2024. reviewed the chart including the labs and imaging studies. My additional comments below. 39 y.o. 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 S/p SLK 10/25-10/26 Has great UOP 4.2L Aaron Gonzalez MD, MEd, FASN * Shay Plata MD - 10/28/2024 7:41 AM EDT Liver Transplant Surgery Progress Note Name: Blair Gilbert CSN: [id number] Date: 10/28/2024 11:05 AM OR Date: 10/25/2024 - 10/27/2024 Subjective: 1 Day Post-Op Received one unit pRBCs overnight On low dose levo this morning Increasing tachycardia Reports worsening pain, on PROGRAM DEVELOPER Tolerated sips of clears No nausea/vomiting, no [...] Oral BID Continuous: HYDROmorphone 6 mg/30 mL PROGRAM DEVELOPER norepinephrine Stopped (10/28/24 0637) sodium chloride 0.9 [...] 45* 38* 37* Recent Labs 10/27/24 0800 10/27/24171210/28/24410/28/24412 AST 88* 62* 60* -- 44* ALT 149* 134* 134* -- 101* ALKPHOS 26* 27* 27* -- 26* BILITOT 1.3 1.7* 1.7* -- 2.3* ALBUMIN 3.0* 3.0* 2.9* 2.9* 2.9* 3.1* 3.1* 3.1* BILIDIRECT 0.93* 1.10* 1.17* -- 1.67* PROT 4.0* 4.1* 4.1* -- 4.5* Recent Labs 10/27/24 0816 10/27/24171210/28/24412 INR 1.2* 1.1 1.1 PROTIME 16.2* 15.2* 14.6 Recent Labs 10/27/24171210/28/24410/28/24412 NA 142 144 142 K 3.4* 3.4* [...] at 10/27/2024 10:38 AM EDT US Duplex Cbo-Vrz-Dgornow Comp Result Date: 10/27/2024 IMPRESSION: RIGHT UPPER [...] 10/25/2024 - 10/27/2024. Plan: Liver transplant recipient ([facility]) [Z94.4] Neuro: - Multimodal pain control: dilaudid PROGRAM DEVELOPER, tylenol, robaxin. PRN dilaudid for breakthrough CV: [...] SCDs DISPO: SICU SHAY PLATA MD, MS4 [facility] Surgery 11:05 AM 10/28/2024 Cosigned by Lydia [...] 10/28/2024 6:17 AM Name: Blair Gilbert CSN: [id number] HPI: Blair Gilbert is a 39 y.o. [...] blood-glucose meter (TRUE METRIX GLUCOSE METER) [facility] Use to test blood sugar up to 4 times a day. DEXCOM G7 ICE GUARD SKATING RINK Misc Use reader as directed. DEXCOM G7 [...] at bedtime. lancets (ACCU-CHEK SOFTCLIX LANCETS) [facility] Use to test blood sugar up to 4 times a day. methocarbamoL (ROBAXIN) 500 MG tablet Take 1 tablet (500 mg total) by mouth 3 times a day. naloxone (NARCAN) 4 mg/actuation [place] Apply 1 spray in one nostril if needed. Call 911. May repeat dose in other nostril if no response in 3 minutes. pen needle, diabetic 32 gauge x /32 [...] Oral BID Continuous: HYDROmorphone 6 mg/30 mL PROGRAM DEVELOPER insulin regular in 0.9 % sodium chloride [...] 37 37 35 PO2ART 245* 182* 92 TVL5XOR 22 21* 21* BEART -4.2* -4.8* -4.6* [...] at baseline or with provocation, shows no chdzn-ui-ojok atrial level shunt. - Pulmonary arteries: Systolic [...] while intubated,convert to PO today Last BM: SALES REPRESENTATIVE GRAPHIC ART Bowel regimen: Miralax today, hold senna til [...] ml IV Fluids: HYDROmorphone 6 mg/30 mL PROGRAM DEVELOPER insulin regular in 0.9 % sodium chloride, [...] results for input(s): TEGANGLE , TEGKTIME , JHLKDPIM44 , TEGMAXAMPL , TEGRTIME , CBMZ in [...] insulin last 24 hours - Today NPH 10/10, 4 units lispro with meals,HDSSI # Hypothyroidism [...] in sodium chloride 0.9% 100 mL IVPB (Prnr5Sdy) (Completed) 1 g Every 6 hours scheduled 10/26/2024 10/28/2024 Admin Instructions: Dosage may need to be adjusted for renal dysfunction. Full dose is 1g IV q6h Use Bmrj1Mba Adapter - Mix Thoroughly Before Administration Notes to Pharmacy: On borderer estimated creatinine clearance is 35.9 mL/min (A) [...] in sodium chloride 0.9 % 100 mL Xyoc8Jbn IVPB 50 mg Every 24 hours 10/27/2024 -- Admin Instructions: PROTECT FROM LIGHT FLUSH LINE w/NSS PRIOR TO ADMINISTRATION Use Xctl9Abg Adapter - Mix Thoroughly Before Administration Route: Intravenous A/P: # Leukocytosis Likely reactive in s/o surgery - Continue perioperative Abx, ampicillin, micafungin (2/ QTC, see ID note from 10/27 for [...] R IJ Mac Arterial Line? R radial Levasy Urinary Catheter? Berkowitz - Reason: Adequate I/O [...] (See Comments) Became Manic * Farhana Velasquez, CLARITAT - 10/27/2024 1:38 PM EDT Caprini Risk [...] the Caprini Risk Score of 10 and [facility] transplant protocol, I recommend discharging on heparin 5,000 units subcutaneously q8h (facility) or Eliquis 2.5 mg PO BID (home) for 30 days total. Endof chemoprophylaxis: 11/25/24. Farhana Velasquez PharmD Candidate, 2025 Cosigned by Hillary Fernandes, TaniD at 10/28/2024 11:50 AM EDT Associated attestation - Hillary Fernandes PharmD - 10/28/2024 11:50 AM EDT I agree with the plan of care as outlined below by the resident/fellow, and will oversee and assistin the transplant-related pharmaceutical care of the patient as needed. Hillary Fernandes PharmD, BCTXP Solid Organ Transplant Clinical Specialist Contact via Dali Wireless Chat Preferred O. [phone] * Chinedu Almeida RRT - 10/27/2024 1:10 [...] Yes MD Order No SBT No Yes [place] Coma Scale > 8 Yes Lab Results Component Value Date PHART 7.36 10/27/2024 PCO2 37 10/27/2024 PO2ART 245 (H) 10/27/2024 MCC1ALD 22 10/27/2024 BEART -4.2 (L) 10/27/2024 FDX9WKR 96.5 10/27/2024 V2NNBOYF 100 10/27/2024 Based on this SBT assessment [...] Surgery Progress Note Name: Blair Gilbert CSN: [id number] Date: 10/27/2024 11:40 AM OR Date: 10/25/2024 - 10/27/2024 Subjective: * Day of Surgery * Remains intubated in SICU Sedated but appropriately nods to questions No acute distress Objective: BP 100/48 Pulse 89 Temp 99 ??F (37.2 ??C) ([place]) Resp 9 Ht 6' 4 (1.93 m) [...] 88.5 PLT 109* 48* 35* Recent Labs 10/26/24 1642 10/27/24 0013 10/27/24 0800 AST 374* 157* 88* ALT 458* 261* 149* ALKPHOS 39 26* 26* BILITOT 2.3* 1.6* 1.3 ALBUMIN 3.0* 3.0* 2.8* 2.8* 3.0* 3.0* BILIDIRECT 1.85* 1.17* 0.93* PROT 3.8* 3.8* 4.0* Recent Labs 10/26/24 1642 10/27/24 0013 10/27/24 0816 INR 1.7* 1.5* 1.2* PROTIME 20.3* 18.6* 16.2* Recent Labs 10/26/24 1642 10/27/24 0013 10/27/24 0800 NA 142 141 142 [...] at 10/27/2024 10:38 AM EDT US Duplex Bwy-Ejo-Nextkjm Comp Result Date: 10/27/2024 IMPRESSION: RIGHT UPPER [...] 10/27/2024. Problem List[1] Plan: Liver transplant recipient ([facility]) [Z94.4] Neuro: - Propofol/fentanyl CV: - Wean [...] POD 2 PPX: SQH, SCDs DISPO: SICU KENYETTAERLINDA HARTMAN, MS4 [facility] Surgery 11:40 AM 10/27/2024 [1] Patient Active Problem List Diagnosis Decompensated cirrhosis ([facility]) Acute kidney injury superimposed on CKD ([facility]) Alcohol use disorder Metabolic encephalopathy Hypertension Other hyperlipidemia Thrombocytopenia ([facility]) Renal mass, left Abdominal pain Hypokalemia CKD (chronic kidney disease) stage 4, GFR 15-29 ml/min ([facility]) Metabolic acidosis with normal anion gap and bicarbonate losses GERD (gastroesophageal reflux disease) Hypothyroidism Itching Anemia BRBPR (bright red blood per rectum) SBP (spontaneous bacterial peritonitis) ([facility]) C Diff Diarrhea C. difficile diarrhea Neck [...] NOTE 10/27/2024 7:16 AM Name: Blair Gilbert [facility]: [id number] HPI: Blair Gilbert is a 39 y.o. [...] 30 days. FREESTYLE NIDA 3 READER [facility] Use 1 each as directed Use as [...] in the morning and at bedtime. lancets Mis Use to test blood sugar up to 4 times a day. Dx: 9.65. Brand per pharmacy / insurance preference. methocarbamoL (ROBAXIN) 500 MG tablet Take 1 tablet (500 mg total) by mouth 3 times a day. mycophenolate (CELLCEPT) 250 mg capsule Take 2 capsules (500 mg total) by mouth 2 times a day. naloxone (NARCAN) 4 mg/actuation [place] Apply 1 spray in one nostril if [...] (!) 20 (10/27/2412) Base Excess: (!) -6.4 (10/27/243) SaO2: 100 (10/27/24 0013) Recent Labs 10/26/24 0610 10/26/24 1048 10/27/24 0013 PHART 7.27* 7.37 7.32* PCO2 47* 36 37 PO2ART 127* 91 137* CAN8RHH 21* 22 20* BEART -5.4* -3.9* -6.4* [...] at baseline or with provocation, shows no vktik-jk-owxf atrial level shunt. - Pulmonary arteries: Systolic [...] IV pantoprazole while intubated, NPO Last BM: SALES REPRESENTATIVE GRAPHIC ART Bowel regimen: Senna/Miralax when able Nausea: Zofran [...] 10/27/2024 0715 Gross per 24 hour Intake 64472.82 ml Output 7060 ml Net 6224.82 ml [...] aggressive replacement - resolved RENAL/ Recent Labs 10/26/24104710/26/24164110/27/24 001 BUN 61* 63* 64* CREATININE 2.78* 2.85* [...] edema A/P: ADDY HEMATOLOGIC Labs: Recent Labs 10/26/24104710/26/24164110/27/24 0013 WBC 17.3* 10.0 5.0 HGB 12.8* 10.5* 8.5* HCT 37.2* 30.2* 23.9* MCV 88.3 87.7 88.5 PLT 109* 48* 35* No results for input(s): ANTIXALMWHEP in the last 72 hours. Recent Labs 10/26/24104710/26/24164110/27/24 0013 INR 2.0* 1.7* 1.5* PROTIME 23.0* 20.3* 18.6* No results for input(s): TEGANGLE , TEGKTIME , ZQPHNEIJ46 , TEGMAXAMPL , TEGRTIME , CBMZ in [...] in sodium chloride 0.9% 100 mL IVPB (Iwjp7Fcb) 1 g Every 6 hours scheduled Admin Instructions: Dosage may need to be adjusted for renal dysfunction. Full dose is 1g IV q6h Use Qxvj4Ebq Adapter - Mix Thoroughly Before Administration Notes to Pharmacy: On borderer estimated creatinine clearance is 35.9 mL/min (A) (based on SCr of 3.87 mg/dL (H)). Route: Intravenous Linked Group 1: Placed in And Linked Group cefTRIAXone (ROCEPHIN) 2 g in sodium chloride 0.9 % 100 mL Mufu8Tmg Continuous - One Step Medications Only 10/27/2024 [...] R IJ Mac Arterial Line? R radial Levasy Urinary Catheter? Berkowitz - Reason: Adequate I/O [...] Forearm 10/26/24 0609 Forearm 1 Arterial Line 06/14/25 Right Radial 10/25/24 2245 Radial 1 Introducer [...] Other (See Comments) Became Manic * Hillary Fernandes PharmD - 10/27/2024 6:59 AM EDT Transplant [...] 8-10 ng/mL POD #> 180: 3-8 ng/mL Tani McbrideD, BCTXP Solid Organ Transplant Clinical Specialist Contact via Smart Balloon Secure Chat Preferred * Simeon Guzman RN [...] 10/26/2024 0725 Gross per 24 hour Intake 86407.32 ml Output 2075 ml Net 57919.32 ml Consitutional: Intubated/sedated HEENT: Mucous membranes moist [...] History and Physical Patient: Blair Gilbert CSN: [id number] History CC: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 naloxone (NARCAN) 4 mg/actuation [place] Apply 1 spray in one nostril if [...] (07/09/2024) Received from [facility] Overall Financial Resource Strain (CARDIA) Difficulty of [...] No Physical Activity: Unknown (07/14/2024) Received from [facility] Exercise Vital Sign Days of Exercise per Week: Patient unable to answer Minutes of Exercise per Session: Not on file Stress: Patient Unable To Answer (07/14/2024) Received from [facility] Citizen Of [place] of Occupational Health - Occupational Stress Questionnaire Feeling of Stress : Patient unable to answer Social Connections: Patient Unable To Answer (07/14/2024) Received from [facility] Social Connection and Isolation Panel [NHANES] Frequency of Communication with Friends and Family: Patient unable to answer Frequency of Social Gatherings with Friends and Family: Patient unable to answer Attends Taoism Services: Patient unable to answer Active Member [...] admitted to SICU post-op. LEANDRA OG MD [facility] General Surgery Liver Transplant Pager: [phone] 8:24 PM 10/25/2024 Cosigned by Harvey [...] Name: Blair Gilbert Date: 1985 Billing #: [id number] Date of Procedure: 10/25/2024 Diagnosis: End Stage Renal Disease Procedure: 1. Donor Kidney Transplant 2. Back Bench Preparation Donor Kidney 3. Baseline Kidney transplant biopsy 4. Insertion of Indwelling Stent 5. Removal of Perihepatic packing Surgeons * Flaquito Ba MD Software Licensing Analyst MD Shayan Findings: Low Hockey stick incision [...] donor was ABO O and UNOS ID [id number], Match Run [id number] (K). This donor was a Donor after [...] was then wanded with the lap detection web production assistant. The incision was ex tented 2 [...] and closure. Flaquito Ba MD Transplant Surgeon corrections counselor * Flaquito Ba MD - 10/27/2024 6:15 AM EDT TRANSPLANT KIDNEY with bile duct reconstruction Brief Op Note Blair Gilbert 10/27/2024 Pre-op Diagnosis: Acute kidney injury superimposed on CKD (CMS-HCC) [N17.9, N18.9] Post-op Diagnosis: same Procedure(s): TRANSPLANT KIDNEY Surgeon(s): MD Harvey Washington III, MD Anesthesia: General Endotracheal Staff: Pipelaying Fitter: Chinedu Quinn RN Scrub Person: ST Angela Fellow: Kemar Sahni MD 2nd Pipelaying Fitter: Marty Clark RN 3rd Pipelaying Fitter: Candis Mcdaniel RN FINDINGS Berkowitz 3 day Drains: Intraabdominal (perihepatic) UNOS ID [id number], Match Run [id number] Kid WIT 27 min Kid CIT 33 [...] (Berkowitz) Triple-lumen (3-Way) 18 Fr. (Active) Status [place] Drainage 10/26/241999 Collection Container Standard drainage bag 10/26/241999 Securement Method StatLock 10/26/241999 Indication for IUC continuation Require accurate, continuous UOP measuring in critically ill 10/26/24 2000 Output (mL) 100 mL 10/27/24 0153 Number [...] Washington III, MD Anesthesia: General Endotracheal Staff: Pipelaying Fitter: Chinedu Quinn RN Relief Pipelaying Fitter: Michela Amos RN Relief Scrub: Stephani Blake RN Scrub Person: ST Angela Fellow: Kemar Sahni MD 2nd Pipelaying Fitter: Marty Clark RN 3rd Pipelaying Fitter: Candis Mcdaniel RN Estimated Blood Loss: 300 mL Specimens: Specimens ID Description Commments Type Source Tests Collected By Collected At 1 1) perfusate 1) perfusate Fluid Kidney Left ANAEROBIC CULTURE FUNGUS CULTURE ROUTINE CULTURE PLUS STAIN Harvey Domínguez III, MD 10/27/24 021 A Baseline Renal Biopsy Tissue Kidney Left SURGICAL PATHOLOGY EXAM Harvey Domínguez III, MD 10/27/24 1758 B B) Right lobe liver biopsy Tissue [...] (Berkowitz) Triple-lumen (3-Way) 18 Fr. (Active) Status [place] Drainage 10/26/241999 Collection Container Standard drainage bag [...] day Drains: 2 Intraabdominal (perihepatic) UNOS ID [id number], Match Run [id number] Donor: young DCD NRP Kid WIT 27 [...] III, MD - 10/27/2024 12:00 AM EDT [facility] PATIENT NAME: BLAIR GILBERT DATE OF : 1985 CSN: [id number] PHYSICIAN: Harvey Domínguez III, MD ADMIT DATE: 10/25/2024 DICTATED BY: Harvey Domínguez III, MD SURGERY DATE: 10/27/2024 OPERATIVE REPORT SURGEON: Harvey Domínguez III, MD IMPREGNATOR OPERATOR SURGEON: Kemar Sahni MD. PREOPERATIVE DIAGNOSIS: [...] were made hemostatic with the argon beam fans clerk. We assessed the flows of the portal [...] a mucocele formation. We then performed a ofzb-bw-jhas choledochocholedochostomy in an end to end fashion [...] small umbilicalhernia that was closed with a uzpdnj-ha-ehdee 0 PDS suture. At this point, we [...] no immediate complications. MD CARLOS A HARMON III/AQ JOB#: [id number] * Harvey Domínguez III, MD - 10/26/2024 7:00 AM EDT Patient Name: Blair Gilbert Date: 1985 Billing #: [id number] Date of Procedure: 10/25/2024 - 10/26/2024 Diagnosis: Chronic Hepatic Failure without coma Procedure: 1. Orthotopic Liver Transplant 2. Back Bench Preparation Donor Liver 3. Temporary portocaval shunt 4. Perihepatic packing for control of hemorrhage 5. Placement of external choledochal stent 6. Temporary abdominal closure Attending surgeons: Harvey Domínguez III, MD Software Licensing Analyst Surgeon(s): Sveta Judge MD Findings: Whole organ placed in piggyback fashion with suprahepatic cava of donor to common orifice of all three hepatic veins for IVC anastomosis. Donor main portal vein to recipient main portal vein. Donor common hepatic artery to recipient right hepatic artery. Temporary abdominal with perihepatic packingfor control of hemorrhage. Externalization of bile duct with 8 Tongan pediatric feeding tube. Portal Flow Modulation No [...] This donor was ABO O and UNOSID [id number], Match Run [id number]. This was a 42-year-old donation after circulatory [...] After completion of the outflow anastomosis, a Belarusian clamp was placed across the donor suprahepatic [...] artery flows were then measured with the Phagenesis device. The portal flow was 3.4 L/min [...] do a temporary abdominal closure. An 8 Tongan pediatric feeding tube was brought through the [...] Sveta Alves III, MD Anesthesia: General Staff: Pipelaying Fitter: Mak Maher RN; Marty Clark RN Scrub Person: ST Angela Resident: Thuy Leon MD sdc teacher: Jose Daniel Arana RRT Estimated Blood Loss: [...] (Removed) Number of days: 5 Surgery Information: -[facility]#: [id number] -ABO: O to O -Recipient: SLK candidate [...] 1:19 PM EDTAssociated Order(s): IP CONSULT TO CHANGE DIRECTOR [facility] Transplant Discharge Education Note Assessment: Received [...] Gomez, MSN, RN, NPD- Diabetes Education Office [phone] Schedule: M-F 8:00am-4:30pm * Ben Jose Weiss, RD - 10/27/2024 4:06 PM EDTAssociated Order(s): IP CONSULT TO NUTRITION SERVICES; IP CONSULT TO NUTRITION SERVICES TXP - Initial [facility] Medical Nutrition Therapy Reason(s) for Completion: [...] I/O: +23.2L net volume. Last BM Date: (SALES REPRESENTATIVE GRAPHIC ART). Admit Weight: 270 lb (122.5 kg) Current [...] Based on DBW of 93.1 kg Kcals/day: 0893-3229 (25-30 kcals/kg) Protein g/day: 140-190 (1.5-2.0 g/kg) [...] Dietitian - Solid Organ Transplant Contact via Smart Balloon Chat * Lavell Kramer MD - 10/27/2024 11:09 AM EDTAssociated Order(s): INPATIENT CONSULT TO TRANSPLANT INFECTIOUS DISEASES Infectious Disease Consultation Patient: Blair Gilbert CSN: [id number] Assessment & Plan 39 y.o. M s/p [...] blood cx's if febrile Lavell Kramer MD [phone] Chief Complaint Long Qtc History of Present [...] (07/09/2024) Received from [facility] Overall Financial Resource Strain (CARDIA) Difficulty of [...] No Physical Activity: Unknown (07/14/2024) Received from [facility] Exercise Vital Sign Days of Exercise per Week: Patient unable to answer Minutes of Exercise per Session: Not on file Stress: Patient Unable To Answer (07/14/2024) Received from [facility] Citizen [place] of Occupational Health - Occupational Stress Questionnaire Feeling of Stress : Patient unable to answer Social Connections: Patient Unable To Answer (07/14/2024) Received from [facility] Social Connection and Isolation Panel [NHANES] Frequency of Communication with Friends and Family: Patient unable to answer Frequency of Social Gatherings with Friends and Family: Patient unable to answer Attends Taoism Services: Patient unable to answer Active Member [...] blood-glucose meter (TRUE METRIX GLUCOSE METER) [facility] Use to test blood sugar up to 4 times a day. DEXCOM G7 ICE GUARD SKATING RINK Misc Use reader as directed. DEXCOM G7 [...] at bedtime. lancets (ACCU-CHEK SOFTCLIX LANCETS) [facility] Use to test blood sugar up to 4 times a day. methocarbamoL (ROBAXIN) 500 MG tablet Take 1 tablet (500 mg total) by mouth 3 times a day. mycophenolate (CELLCEPT) 250 mg capsule Take 2 capsules (500 mg total) by mouth 2 times a day. naloxone (NARCAN) 4 mg/actuation [place] Apply 1 spray in one nostril if [...] CKD IIIb/IV: - Presumed s/t HRS - Tape Calender: Yovanny Curran at [facility] Allograft Function: S/p SLK 10/25- (kidney preemptive) [...] 10/27/2024 1500 Gross per 24 hour Intake 91081.28 ml Output 5950 ml Net 6403.28 ml Heme/Anemia: WBC: 5.8 Goal HgB 10-12 mg/dL Hgb: 7.5 Plt 50 Iron: 128 on 10/25/2024 Ferritin 623.2 on 10/25/2024 TIBC: SEE COMMENT on 10/25/2024 % Iron Saturation: SEE COMMENT on 10/25/2024 DuangysP79: No results found for requested labs within [...] - Monitor renal function. No indications for PHOTOGRAPHIC ENLARGER OPERATOR. Good UOP - Noted KT US WNL [...] preliminary until attending attestation. Lauren Santos, DNP, PHARMACY CLINICAL COORDINATOR, GREENHOUSE STAFF- Transplant Nephrology [phone] Preferred contact: secure chat [1] Allergies Allergen [...] Gonzalez MD, MEd, FASN * Marcellus Hebert, MANUFACTURING GROUP LEADER, RELIEF CAPTAIN - 10/27/2024 10:21 AM EDT HEALTH Care Management/Social Work Assessment Patient Information Patient Name: Blair Gilbert Hospital Day: 2 Inpatient/Observation: Inpatient Admit Date: 10/25/2024 Admission Diagnosis: Liver transplant recipient (CMS-HCC) [Z94.4] Attending provider: Harvey Domínguez III, MD PCP: Enedina Mcguire NP Home Pharmacy: [facility] [address] [place], [place] [address], [place] - [address] [facility] [address] [facility] [address] Issues related to obtaining medications: N/A Payor Information Medical Insurance Coverage: Payor: [facility] / Plan: [facility] GLOBAL / Product Type: *No [...] to [facility] Services Status & Connection to [place] Services Are you a ?: No Support [...] resides with his spouse at their [address] home in [place]. 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 Patient's LNOK:Spouse, Abdiaziz Gilbert, Patient has no current or past history of suicidal/homicidal ideation. Patient has a history of mental health diagnoses, PTSD and Generalized Anxiety Disorder. Patient is connected with TransplantPsychiatrist and prescribed Prozac. Patient has a history of alcohol use and has completed 12 weeksof CD Treatment at [facility]. Spouse explained that he will complete a 6 month virtual program post transplant but could not recall the name of the program. Patient has no current tobacco use. No previous need or recommendation for home health care services and no previous placements at halfway facility and/or inpatient rehab program. Patient has [...] interest(s) are disclosed as appropriate. NUBIA Escalera, RELIEF CAPTAIN Phone Number: [phone] * John Moreno MD - 10/26/2024 3:41 AM EDT SURGICAL ICU CONSULT NOTE 10/26/2024 3:41 AM Name: Blair Gilbert CSN: [id number] HPI: Blair Gilbert is a 39 y.o. [...] at 9:00 PM naloxone (NARCAN) 4 mg/actuation [place] Apply 1 spray in one nostril if [...] input(s): PHART , PCO2 , PO2ART , JKE9YOX , BEART in the last 72 hours. [...] at baseline or with provocation, shows no sfhmw-im-bnkk atrial level shunt. - Pulmonary arteries: Systolic [...] IV pantoprazole while intubated, NPO Last BM: SALES REPRESENTATIVE GRAPHIC ART Bowel regimen: Senna/Miralax when able Nausea: Zofran PRN FLUID/ELECTROLYTES Recent Labs 10/25/242216 NA 137 K 2.1* CL 100 CO2 20* BUN 74* CREATININE 3.87* CALCIUM 9.3 PHOS 5.9* GLUCOSE 114* Intake/Output Summary (Last 24 hours) at 10/26/2024 0341 Last data filed at 10/26/2024 0326 Gross per 24 hour Intake 79106 ml Output 675 ml Net 99751 ml IV Fluids: EPINEPHrine (ADRENALIN) 10 mg in sodium chloride 0.9 % 250 mL infusion, Last Rate: 2.5 mcg/min (10/26/24 0339) insulin regular in 0.9 % sodium chloride norepinephrine, Last Rate: 18 mcg/min (10/26/24 0313) vasopressin, Last Rate: 0.04 Units/min (10/26/24 0244) [...] edema A/P: ADDY HEMATOLOGIC Labs: Recent Labs 10/25/24221610/25/240 10/26/24 0039 10/26/24 0140 WBC 6.2 -- -- -- HGB 8.3* 6.6* 7.9* 7.4* HCT 23.7* 19.0* 23.0* 22.0* MCV 98.9 -- -- -- PLT 56* -- -- -- No results for input(s): ANTIXALMWHEP in the last 72 hours. Recent Labs 10/25/242216 INR 1.8* PROTIME 21.7* No results for input(s): TEGANGLE , TEGKTIME , RVXAWBFH10 , TEGMAXAMPL , TEGRTIME , CBMZ in [...] Lab 10/26/24 0140 10/26/24 0039 10/25/24 2340 10/25/247 10/25/24 2156 10/22/24 0000 10/21/24 0000 POC [...] in sodium chloride 0.9% 100 mL IVPB (Ugwv5Nqh) 2 g Every 6 hours 10/26/2024 -- Admin Instructions: Use Tset2Oks Adapter - Mix Thoroughly Before Administration Notes to Pharmacy: On borderer estimated creatinine clearance is 35.9 mL/min (A) (based on SCr of 3.87 mg/dL (H)). Route: Intravenous AMPicillin 2 g in sodium chloride 0.9% 100 mL IVPB (Psdk8Yfi) 2 g Once 10/26/2024 -- Admin Instructions: Use Wyqx3Itx Adapter - Mix Thoroughly Before Administration Notes to Pharmacy: On borderer estimated creatinine clearance is 35.9 mL/min (A) (based on SCr of 3.87 mg/dL (H)). Route: Intravenous cefTRIAXone (ROCEPHIN) 2 g in sodium chloride 0.9 % 100 mL Cqaa9Knw (Completed) 2 g Once 10/25/2024 10/26/2024 Admin Instructions: Use Pqhb3Xgp Adapter - Mix Thoroughly Before Administration Route: [...] R IJ Mac Arterial Line? R radial Levasy Urinary Catheter? Berkowitz - Reason: Adequate I/O [...] 47 (H) 10/26/2024 PO2ART 127 (H) 10/26/2024 LGI5AKW 21 (L) 10/26/2024 BEART -5.4 (L) 10/26/2024 BYB0HNN 94.6 (L) 10/26/2024 M3AYPXVC 98 10/26/2024 P:F ratio = 363 CARDIOVASCULAR: [...] Acute Care Surgery, and Surgical Critical Care [facility] Academic Office [phone] For Transfers, call [phone] documented in this encounter Nursing Notes * [...] s/p OLT. Patient arrived to SICU bed SICU-28/[facility]-28 via hospital bed . Patient arrived intubated. [...] RONALDO - 10/31/2024 11:34 AM EDT [facility] Case Management/Social Work Department Progress Note Patient Information Patient Name: [facility] day: 6 Inpatient/Observation: Inpatient Level of Care: Transplant Admit date: 10/25/2024 Admission diagnosis: Liver transplant recipient (CMS-HCC) [Z94.4] PMH: has a past medical history of Alcoholic cirrhosis of liver (CMS-HCC), Esophageal varices (CMS-HCC), Hepatorenal syndrome (CMS-HCC), Hypertension, Other hyperlipidemia (07/26/2024), Renal cell carcinoma ([facility]), Thrombocytopenia ([facility]), and Thyroid disease. PCP: Enedina Mcguire NP Home Pharmacy: [facility] [address] [address] [facility] [address] [facility] [address] [facility] [place] - [place] - [address] [place] [address] Medical Insurance Coverage: Payor: [employer] [...] educator aware that there were no accepting [facility] agencies([facility], [facility], [facility]) and patient would need to outpatient for PT/OT and labs. Discharge Plan Anticipated discharge plan: Home with HHC vs Home with outpatient Anticipated discharge date: 11/01 CM/SW will continue to follow and remain available for discharge planning needs. NBUIA Escalera, RONALDO Cell [phone] * Plan of Care - Paulette Flannery [...] Citlaly Nova - 10/29/2024 1:53 PM EDT [facility] Case Management/Social Work [...] NP Home Pharmacy: [facility] [address] [place] [address] [place] [address] [facility] [address] [place] [facility] [address] [facility] [place] - Deya [facility] [address] [facility] [address] Medical Insurance Coverage: Pay[facility]: [facility] / Plan: [employer] / Product Type: *No Product [...] SW submitted blanket HHC referral to [facility], [facility], [facility], and [facility]. Awaiting responses. SW to followpending clearance home [...] for discharge planning needs. Citlaly Nova MSW, RELIEF CAPTAIN Inpatient Market Consultant/Care Coordination [phone] * Plan of Care - Soco Yap [...] RONALDO - 10/28/2024 2:29 PM EDT [facility] Case Management/Social Work Department Progress Note [...] Home Pharmacy: [facility] [address] [facility] [address] [facility]GE [facility]ACY [address] [facility] [address] [facility] [place] - [place], [place] - [address] [place] [phone] Medical Insurance Coverage: Payor: [employer] [...] discharge planning needs. NUBIA Escalera, RONALDO Cell [phone] * Plan of Care - Elaine Carrillo [...] at all times. Outcome: Completed Problem: Non-violent, tpx-nhgk-jaglothhmse restraints Description: Less restrictive alternative interventions will [...] of medical procedures, or protection of medical lab technologist access. Outcome: Completed * Plan of Care [...] foods as appropriate. Outcome: Progressing Problem: Non-violent, cxm-jioy-jbozstuetzj restraints Description: Less restrictive alternative interventions will [...] of medical procedures, or protection of medical lab technologist access. Outcome: Progressing * Plan of Care - Shanel Shen RN - 10/27/2024 9:00 AM EDT Problem: Non-violent, tap-anyw-erpdafhndha restraints Description: Less restrictive alternative interventions will [...] - 10/26/2024 7:41 PM EDT Problem: Non-violent, axl-ssrt-yeqckakqpys restraints Description: Less restrictive alternative interventions will [...] of medical procedures, or protection of medical lab technologist access. Outcome: Not Progressing Patient in bilateral [...] restraint flowsheet for further documentation. Problem: Non-violent, xte-xfmj-ecbpibgkacx restraints Description: Less restrictive alternative interventions will [...] of medical procedures, or protection of medical lab technologist access. Outcome: Progressing * Plan of Care [...] Encounter [facility] ENDOSCOPY [address] [place] [phone] Chris Orosco MD [address] [place] [phone] 12/05/2024 8:01 AM EDT - 12/05/2024 8:31 AM EDT Surgery [facility] ENDOSCOPY [address] [place] [phone] Chris Orosco MD [address] [place] [phone] EGD Pending Results Name Type Priority Associated [...] Routine 10/31/2024 11:59 AM EDT US DUPLEX [id number] COMPLETE Routine 10/31/2024 10:19 AM EDT US [...] Routine 10/28/2024 5:31 PM EDT US DUPLEX HFH-BBMEZN-WDVZEKM COMPLETE STAT 10/28/2024 4:23 PM EDT US [...] Routine 10/27/2024 10:00 AM EDT US DUPLEX CQO-GGAHBO-IDIJOEM COMPLETE STAT 10/27/2024 9:51 AM EDT US [...] EDT Acute kidney injury superimposed on CKD ([facility]) ID RENAL ALTRNSPLJ IMPLTJ GRF W/STRUCTURAL DRAFTER NEPHRECTOMY 10/27/2024 2:32 AM EDT Acute kidney injury superimposed on CKD ([facility]) 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 smith [...] scan (11/03/2024 9:07 AM EDT) us Scanning [facility] SCAN DOCS - NO RESULTS Final Res [...] - 100 mg/dL 11/02/2024 5:45 PM EDT [facility] Blood 11/02/2024 5:44 PM EDT 11/02/2024 5:45 PM EDT Harvey Domínguez III, MD POINT OF CARE TEST ORDERABLES Final Result Performing Organization Address [facility] Co de Phone Number [facility] [address] [facility]. [address] * (ABNORMAL) POC Glucose Monitoring Device (11/02/2024 3:34 PM EDT) POC Glucose Monitoring Device 208(H) 70 - 100 mg/dL 11/02/2024 3:35 PM EDT [facility] Blood 11/02/2024 3:34 PM EDT 11/02/2024 3:35 PM EDT Harvey Domínguez III, MD POINT OF CARE TEST ORDERABLES Final Result Performing Organization Address [facility] Co de Phone Number [facility] [address] [place] [facility]. [address] * (ABNORMAL) POC Glucose Monitoring Device (11/02/2024 1:18 PM EDT) POC Glucose Monitoring Device 225(H) 70 - 100 mg/dL 11/02/2024 1:19 PM EDT [facility] Blood 11/02/2024 1:18 PM EDT 11/02/2024 1:19 PM EDT Harvey Domínguez III, MD POINT OF CARE TEST ORDERABLES Final Result Performing Organization Address City/[facility] Co de Phone Number [facility] [address] [facility]. [address] * (ABNORMAL) POC Glucose Monitoring Device (11/02/2024 8:59 AM EDT) POC Glucose Monitoring Device 129(H) 70 - 100 mg/dL 11/02/2024 9:00 AM EDT [facility] Blood 11/02/2024 8:59 AM EDT 11/02/2024 9:00 AM EDT Harvey Domínguez III, MD POINT OF CARE TEST ORDERABLES Final Result Performing Organization Address City/[facility]/ZIP Co de Phone Number [facility] [address]. [address] * Tacrolimus level (11/02/2024 5:53 AM EDT) Tacrolimus (LC-MS) 7.4 3.0 - 15.0 ng/mL 11/02/2024 2:23 PM EDT [facility] Comment:Performed via liquid chromatography tandem mass spectrometry. Detection limit: 1 ng/mL. Individual target concentrations may vary due to target organ and time after transplant. This test has been developed and its performance characteristics determined by [facility] which is certified under the [...] ORDERABLES Denisse l Result Performing Organization Address City/[facility]/ZIP Co de Phone Number [facility] [address] [place] [facility]. [address] * (ABNORMAL) Renal Function Panel w/EGFR (11/02/2024 5:53 AM EDT) Sodium 140 133 - 146 mmol/L 11/02/2024 6:47 AM EDT [facility] Potassium 3.3(L) 3.5 - 5.3 mmol/L 11/02/2024 6:47 AM EDT [facility] Chloride 107 98 - 110 mmol/L 11/02/2024 6:47 AM EDT [facility] CO2 25 21 - 33 mmol/L 11/02/2024 6:47 AM EDT [facility] Anion Gap 8 3 - 16 mmol/L 11/02/2024 6:47 AM EDT [facility] BUN 31(H) 7 - 25 mg/dL 11/02/2024 6:47 AM EDT [facility] Creatinine 1.08 0.60 - 1.30 mg/dL 11/02/2024 6:47 AM EDT [facility] Glucose 150(H) 70 - 100 mg/dL 11/02/2024 6:47 AM EDT [facility] Calcium 7.8(L) 8.6 - 10.3 mg/dL 11/02/2024 6:47 AM EDT [facility] Phosphorus 2.0(L) 2.1 - 4.7 mg/dL 11/02/2024 6:47 AM EDT [facility] Albumin 3.2(L) 3.5 - 5.7 g/dL 11/02/2024 6:47 AM EDT [facility] Osmolality, Calculated 299 278 - 305 mOsm/kg 11/02/2024 6:47 AM EDT [facility] EGFR 88 11/02/2024 6:47 AM EDT [facility] Comment:As of 2021, the [...] 11/02/2024 6:12 AM EDT us Beata Horner [facility] BLOOD ORDERABLES Denisse tori Result [facility] [address] [place] [address] * (ABNORMAL) Magnesium (11/02/2024 5:53 AM EDT) Magnesium 1.3(L) 1.5 - 2.5 mg/dL 11/02/2024 6:47 AM EDT [facility] Plasma 11/02/2024 5:53 AM EDT 11/02/2024 6:12 AM EDT Beata Horner [employer] LAB BLOOD ORDERABLES Denisse l Result [facility] [address] * (ABNORMAL) Hepatic Function Panel (11/02/2024 5:53 AM EDT) Total Bilirubin 1.6(H) 0.0 - 1.5 mg/dL 11/02/2024 6:47 AM EDT [facility] Bilirubin, Direct 0.81(H) 0.00 - 0.40 mg/dL 11/02/2024 6:47 AM EDT [facility] AST 30 13 - 39 U/L 11/02/2024 6:47 AM EDT [facility] ALT 66(H) 7 - 52 U/L 11/02/2024 6:47 AM EDT [facility] Alkaline Phosphatase 126(H) 36 - 125 U/L 11/02/2024 6:47 AM EDT [facility] Total Protein 4.6(L) 6.4 - 8.9 g/dL 11/02/2024 6:47 AM EDT [facility] Albumin 3.2(L) 3.5 - 5.7 g/dL 11/02/2024 6:47 AM EDT [facility] Bilirubin, Indirect 0.79 0.00 - 1.10 mg/dL 11/02/2024 6:47 AM EDT [facility] Plasma 11/02/2024 5:53 AM EDT 11/02/2024 6:12 AM EDT Beata Horner [facility] BLOOD ORDERABLES Denisse l Result [facility] [address] [facility]. [address] * (ABNORMAL) CBC (11/02/2024 5:53 AM EDT) [facility] WBC 5.8 3.8 - 10.8 10E3/uL 11/02/2024 6:21 AM EDT [facility] RBC 3.12(L) 4.20 - 5.80 10E6/uL 11/02/2024 6:21 AM EDT [facility] Hemoglobin 9.2(L) 13.2 - 17.1 g/dL 11/02/2024 6:21 AM EDT [facility] Hematocrit 27.5(L) 38.5 - 50.0 % 11/02/2024 6:21 AM EDT [facility] MCV 87.9 80.0 - 100.0 fL 11/02/2024 6:21 AM EDT [facility] MCH 29.5 27.0 - 33.0 pg 11/02/2024 6:21 AM EDT [facility] MCHC 33.5 32.0 - 36.0 g/dL 11/02/2024 6:21 AM EDT [facility] RDW 17.5(H) 11.0 - 15.0 % 11/02/2024 6:21 AM EDT [facility] Platelets 61(L) 140 - 400 10E3/uL 11/02/2024 6:21 AM EDT [facility] MPV 7.9 7.5 - 11.5 fL 11/02/2024 6:21 AM EDT [facility] Whole Blood 11/02/2024 5:53 AM EDT 11/02/2024 6:12 AM EDT [facility] BLOOD ORDERABLES Denisse l Result [facility] [address] * (ABNORMAL) POC Glucose Monitoring Device (11/01/2024 9:26 PM EDT) POC Glucose Monitoring Device 199(H) 70 - 100 mg/dL 11/01/2024 9:27 PM EDT [facility] Blood 11/01/2024 9:26 PM EDT 11/01/2024 9:27 PM EDT Harvey Domínguez III, MD POINT OF CARE TEST ORDERABLES Final Result [facility] [address] * (ABNORMAL) POC Glucose Monitoring Device (11/01/2024 5:04 PM EDT) POC Glucose Monitoring Device 255(H) 70 - 100 mg/dL 11/01/2024 5:05 PM EDT [facility] Blood 11/01/2024 5:04 PM EDT 11/01/2024 5:05 PM EDT Harvey Domínguez III, MD POINT OF CARE TEST ORDERABLES Final Result Performing Organization Address City/[facility]/ZIP Co de Phone Number [facility] [address] [place] [address] * (ABNORMAL) Renal Function Panel w/EGFR, STAT (11/01/2024 2:17 PM EDT) Sodium 139 133 - 146 mmol/L 11/01/2024 3:10 PM EDT [facility] Potassium 3.3(L) 3.5 - 5.3 mmol/L 11/01/2024 3:10 PM EDT [facility] Chloride 107 98 - 110 mmol/L 11/01/2024 3:10 PM EDT [facility] CO2 24 21 - 33 mmol/L 11/01/2024 3:10 PM EDT [facility] Anion Gap 8 3 - 16 mmol/L 11/01/2024 3:10 PM EDT [facility] BUN 35(H) 7 - 25 mg/dL 11/01/2024 3:10 PM EDT [facility] Creatinine 1.22 0.60 - 1.30 mg/dL 11/01/2024 3:10 PM EDT [facility] Glucose 203(H) 70 - 100 mg/dL 11/01/2024 3:10 PM EDT [facility] Calcium 8.3(L) 8.6 - 10.3 mg/dL 11/01/2024 3:10 PM EDT [facility] Phosphorus 2.2 2.1 - 4.7 mg/dL 11/01/2024 3:10 PM EDT [facility] Albumin 3.4(L) 3.5 - 5.7 g/dL 11/01/2024 3:10 PM EDT [facility] Osmolality, Calculated 302 278 - 305 mOsm/kg 11/01/2024 3:10 PM EDT [facility] EGFR 76 11/01/2024 3:10 PM EDT [facility] Comment:As of 2021, the [...] Marks MD LAB BLOOD ORDERABLES Final Result [facility] [address] [place] [address], [facility] * X-ray Portable Abdomen AP view [...] - 100 mg/dL 11/01/2024 12:23 PM EDT [facility] Blood 11/01/2024 12:2 2 PM EDT 11/01/2024 12:23 PM EDT Harvey Domínguez III, MD POINT OF CARE TEST ORDERABLES Final Result Performing Organization Address City/[facility] Co de Phone Number [facility] [address] [facility]. [address] * (ABNORMAL) POC Glucose Monitoring Device (11/01/2024 8:50 AM EDT) POC Glucose Monitoring Device 175(H) 70 - 100 mg/dL 11/01/2024 8:51 AM EDT [facility] Blood 11/01/2024 8:50 AM EDT 11/01/2024 8:51 AM EDT Harvey Domínguez III, MD POINT OF CARE TEST ORDERABLES Final Result Performing Organization Address [facility] de Phone Number [facility] [address] [place] [address]. [address] * Tacrolimus level (11/01/2024 6:01 AM EDT) Tacrolimus (LC-MS) 7.5 3.0 - 15.0 ng/mL 11/01/2024 12:14 PM EDT [facility] Comment:Performed via liquid chromatography tandem mass spectrometry. Detection limit: 1 ng/mL. Individual target concentrations may vary due to target organ and time after transplant. This test has been developed and its performance characteristics determined by [facility] which is certified under the [...] ORDERABLES Denisse l Result Performing Organization Address City/[facility]/ZIP Co de Phone Number [facility] [address] [place] [address], [facility] * (ABNORMAL) Renal Function Panel w/EGFR (11/01/2024 6:01 AM EDT) Sodium 139 133 - 146 mmol/L 11/01/2024 6:57 AM EDT [facility] Potassium 3.3(L) 3.5 - 5.3 mmol/L 11/01/2024 6:57 AM EDT [facility] Chloride 108 98 - 110 mmol/L 11/01/2024 6:57 AM EDT [facility] CO2 22 21 - 33 mmol/L 11/01/2024 6:57 AM EDT [facility] Anion Gap 9 3 - 16 mmol/L 11/01/2024 6:57 AM EDT [facility] BUN 37(H) 7 - 25 mg/dL 11/01/2024 6:57 AM EDT [facility] Creatinine 1.30 0.60 - 1.30 mg/dL 11/01/2024 6:57 AM EDT [facility] Glucose 163(H) 70 - 100 mg/dL 11/01/2024 6:57 AM EDT [facility] Calcium 8.2(L) 8.6 - 10.3 mg/dL 11/01/2024 6:57 AM EDT [facility] Phosphorus 2.9 2.1 - 4.7 mg/dL 11/01/2024 6:57 AM EDT [facility] Albumin 3.1(L) 3.5 - 5.7 g/dL 11/01/2024 6:57 AM EDT [facility] Osmolality, Calculated 300 278 - 305 mOsm/kg 11/01/2024 6:57 AM EDT [facility] EGFR 71 11/01/2024 6:57 AM EDT [facility] Comment:As of 2021, the [...] reported as >90mL/min/1.73m2. Reference: Luis Eduardo Cohn Baweja M, Olivia DC, Emerita ND, Madelyn [place], Felicia [place], et al. A Unifying Approach for GFR Estimation: Recommendations of the NKF-ASN Task Force on Reassessing the inclusion of Race in Diagnosing Kidney Disease. Am J Kidney Dis. 2020. Plasma 11/01/2024 6:01 AM EDT 11/01/2024 6:20 AM EDT [employer] [facility] BLOOD ORDERABLES Denisse l Result Performing Organization Address City/[facility]/ZIP Co de Phone Number [facility] [address] [facility]. [address] * Magnesium (11/01/2024 6:01 AM EDT) Magnesium 1.5 1.5 - 2.5 mg/dL 11/01/2024 6:57 AM EDT [facility] Plasma 11/01/2024 6:01 AM EDT 11/01/2024 6:20 AM EDT [facility] BLOOD ORDERABLES Denisse l Result Performing Organization Address [facility] Co de Phone Number [facility] [address] [place] [address]. [address] * (ABNORMAL) Hepatic Function Panel (11/01/2024 6:01 AM EDT) Total Bilirubin 2.0(H) 0.0 - 1.5 mg/dL 11/01/2024 6:57 AM EDT [facility] Bilirubin, Direct 1.06(H) 0.00 - 0.40 mg/dL 11/01/2024 6:57 AM EDT [facility] AST 21 13 - 39 U/L 11/01/2024 6:57 AM EDT [facility] ALT 62(H) 7 - 52 U/L 11/01/2024 6:57 AM EDT [facility] Alkaline Phosphatase 114 36 - 125 U/L 11/01/2024 6:57 AM EDT [facility] Total Protein 4.6(L) 6.4 - 8.9 g/dL 11/01/2024 6:57 AM EDT [facility] Albumin 3.1(L) 3.5 - 5.7 g/dL 11/01/2024 6:57 AM EDT [facility] Bilirubin, Indirect 0.94 0.00 - 1.10 mg/dL 11/01/2024 6:57 AM EDT [facility] Plasma 11/01/2024 6:01 AM EDT 11/01/2024 6:20 AM EDT us Beata Horner [employer] LAB BLOOD ORDERABLES Denisse l Result [facility] [address] [place] [address], [facility] * (ABNORMAL) CBC (11/01/2024 6:01 AM EDT) WBC 5.9 3.8 - 10.8 10E3/uL 11/01/2024 6:29 AM EDT [facility] RBC 3.19(L) 4.20 - 5.80 10E6/uL 11/01/2024 6:29 AM EDT [facility] Hemoglobin 9.5(L) 13.2 - 17.1 g/dL 11/01/2024 6:29 AM EDT [facility] Hematocrit 27.8(L) 38.5 - 50.0 % 11/01/2024 6:29 AM EDT [facility] MCV 87.1 80.0 - 100.0 fL 11/01/2024 6:29 AM EDT [facility] MCH 29.9 27.0 - 33.0 pg 11/01/2024 6:29 AM EDT [facility] MCHC 34.3 32.0 - 36.0 g/dL 11/01/2024 6:29 AM EDT [facility] RDW 17.4(H) 11.0 - 15.0 % 11/01/2024 6:29 AM EDT [facility] Platelets 56(L) 140 - 400 10E3/uL 11/01/2024 6:29 AM EDT [facility] MPV 8.3 7.5 - 11.5 fL 11/01/2024 6:29 AM EDT [facility] Whole Blood 11/01/2024 6:01 AM EDT 11/01/2024 6:19 AM EDT Beata Horner [facility] BLOOD ORDERABLES Denisse l Result [facility] [address] [facility]. [address] * (ABNORMAL) POC Glucose Monitoring Device (10/31/2024 9:15 PM EDT) POC Glucose Monitoring Device 171(H) 70 - 100 mg/dL 10/31/2024 9:15 PM EDT [facility] Blood 10/31/2024 9:15 PM EDT 10/31/2024 9:15 PM EDT Harvey Domínguez III, MD POINT OF CARE TEST ORDERABLES Final Result [facility] [address] [place] [facility]. [address] * (ABNORMAL) POC Glucose Monitoring Device (10/31/2024 5:56 PM EDT) POC Glucose Monitoring Device 179(H) 70 - 100 mg/dL 10/31/2024 5:57 PM EDT [facility] Blood 10/31/2024 5:56 PM EDT 10/31/2024 5:57 PM EDT Harvey Domínguez III, MD POINT OF CARE TEST ORDERABLES Final Result [facility] [address] [facility]. [address] * CT Abdomen and Pelvis WO [...] Adrenal gland: No focal nodule seen. Kidneys: [place] kidneys noted with nonobstructing calcifications on the right. Findings of postsurgical changes in the left [place] kidney. Mild right hydronephrosis without an obstructive [...] Adrenal gland: No focal nodule seen. Kidneys: [place] kidneys noted with nonobstructing calcifications on theright. Findings of postsurgical changes in the left [place] kidney. Mildright hydronephrosis without an obstructive course [...] QT: 400 ms QTc: 456 ms P [place]: 49 degrees R [place]: 3 degrees T [place]: 14 degrees Diagnosis Line: NORMAL SINUS RHYTHM ^ NORMAL ECG ^ ^ Confirmed by MD REID JAMES ([id number]) on 11/02/2024 6:56:52 AM Priti Geiger [employer] ECG ORDERABLES Final Result MUSE * (ABNORMAL) Urinalysis w/Rfl to Microscopic (10/31/2024 1:18 PM EDT) Color, UA Straw Yellow,Straw 10/31/2024 1:46 PM EDT [facility] Clarity, UA Clear Clear 10/31/2024 1:46 PM EDT [facility] Specific [place], UA 1.013 1.005 - 1.035 10/31/2024 1:46 PM EDT [facility] pH, UA 6.5 5.0 - 8.0 10/31/2024 1:46 PM EDT [facility] Protein, UA Negative Negative mg/dL 10/31/2024 1:46 PM EDT [facility] Glucose, UA Negative Negative mg/dL 10/31/2024 1:46 PM EDT [facility] [facility] Ketones, UA Negative Negative mg/dL 10/31/2024 1:46 PM EDT [facility] Bilirubin, UA Negative Negative 10/31/2024 1:46 PM EDT [facility] Blood, UA Large(A) Negative 10/31/2024 1:46 PM EDT [facility] Nitrite, UA Negative Negative 10/31/2024 1:46 PM EDT [facility] Urobilinogen, UA <2.0 0.2 - 1.9 mg/dL 10/31/2024 1:46 PM EDT [facility] Leukocyte Esterase, UA Negative Negative 10/31/2024 1:46 PM EDT [facility] RBC, UA >100(H) 0 - 3 /HPF 10/31/2024 1:46 PM EDT [facility] WBC, UA 3 0 - 5 /HPF 10/31/2024 1:46 PM EDT [facility] Hyaline Casts, UA 3(H) 0 - 2 /LPF 10/31/2024 1:46 PM EDT [facility] Urine 10/31/2024 1:18 PM EDT 10/31/2024 1:32 PM EDT Priti Geiger CNP URINE ORDERABLES Final Result Performing Organization Address [facility] Co de Phone Number [facility] [address] * (ABNORMAL) Post Kidney Transplant Urine Culture (10/31/2024 1:18 PM EDT) Culture Result Enterococcus faecium, Vancomycin Resistant(A) [facility] Comment: 1,000- <10,000 cfu/mL [...] ORDERA BLES Final Result Performing Organization Address [facility] Co de Phone Number [facility] [address] [facility] * (ABNORMAL) POC Glucose Monitoring Device (10/31/2024 11:59 AM EDT) POC Glucose Monitoring Device 130(H) 70 - 100 mg/dL 10/31/2024 12:21 PM EDT [facility] Blood 10/31/2024 11:5 9 AM EDT 10/31/2024 12:21 PM EDT Harvey Domínguez III, MD POINT OF CARE TEST ORDERABLES Final Result [facility] [address] [place] [address], [facility] * US Abdomen Limited (10/31/2024 10:19 [...] EXAM: US ABDOMEN LIMITED EXAM: US DUPLEX [id number] COMPLETE INDICATION: Post-op liver transplant COMPARISON: None [...] visualized secondary to poor acoustic windows. [place] right kidney measures 11.6 cm in length. [...] EXAM: US ABDOMEN LIMITED EXAM: US DUPLEX [id number] COMPLETE INDICATION: Post-op liver transplant COMPARISON: None [...] well visualized secondary to poor acousticwindows. [place] right kidney measures 11.6 cm in length. [...] at 10/31/2024 10:35 AM EDT [facility] US ORDERABLES Final R esult * US [...] 10/31/2024 10:29 AM EDT us Beata Horner [facility] IMG US ORDERABLES Final R esult * US Duplex Wbp-[id number] Comp (10/31/2024 10:19 AM EDT) Anatomical Region [...] EXAM: US ABDOMEN LIMITED EXAM: US DUPLEX [id number] COMPLETE INDICATION: Post-op liver transplant COMPARISON: None [...] visualized secondary to poor acoustic windows. [place] right kidney measures 11.6 cm in length. [...] EXAM: US ABDOMEN LIMITED EXAM: US DUPLEX [id number] COMPLETE INDICATION: Post-op liver transplant COMPARISON: None [...] well visualized secondary to poor acousticwindows. [place] right kidney measures 11.6 cm in length. [...] at 10/31/2024 10:35 AM EDT [facility] US ORDERABLES Final R esult * ECG 12-lead (MUSE) (10/31/2024 8:57 AM EDT) 10/31/2024 8:57 AM EDT Narrative MUSE - 11/01/2024 9:21 AM EDT Ventricular Rate: 83 BPM Atrial Rate: 83 BPM P-R Interval: 168 ms QRS Duration: 102 ms QT: 392 ms QTc: 460 ms P [place]: 64 degrees R [place]: -18 degrees T [place]: 7 degrees Diagnosis Line: NORMAL SINUS RHYTHM ^ NORMAL ECG ^ ^ Confirmed by MD JOE, OTIS ([id number]) on 11/01/2024 9:21:13 AM us Priti Geiger [facility] ECG ORDERABLES Final Result MUSE * (ABNORMAL) POC Glucose Monitoring Device (10/31/2024 8:44 AM EDT) [facility] POC Glucose Monitoring Device 145(H) 70 - 100 mg/dL 10/31/2024 8:45 AM EDT [facility] Blood 10/31/2024 8:44 AM EDT 10/31/2024 8:44 AM EDT Harvey Domínguez III, MD POINT OF CARE TEST ORDERABLES Final Result Performing Organization Address [facility] Co de Phone Number [facility] [address] [facility] * Tacrolimus level (10/31/2024 6:40 AM EDT) [facility] Tacrolimus (LC-MS) 8.4 3.0 - 15.0 ng/mL 10/31/2024 10:05 AM EDT [facility] Comment:Performed via liquid chromatography tandem mass spectrometry. Detection limit: 1 ng/mL. Individual target concentrations may vary due to target organ and time after transplant. This test has been developed and its performance characteristics determined by [facility] which is certified under the [...] ORDERABLES Denisse l Result Performing Organization Address [facility] Co de Phone Number [facility] [address] [facility] * (ABNORMAL) Renal Function Panel w/EGFR (10/31/2024 6:40 AM EDT) [facility] Sodium 141 133 - 146 mmol/L 10/31/2024 8:09 AM EDT [facility] Potassium 3.5 3.5 - 5.3 mmol/L 10/31/2024 8:09 AM EDT [facility] Chloride 111(H) 98 - 110 mmol/L 10/31/2024 8:09 AM EDT [facility] CO2 20(L) 21 - 33 mmol/L 10/31/2024 8:09 AM EDT [facility] Anion Gap 10 3 - 16 mmol/L 10/31/2024 8:09 AM EDT [facility] BUN 54(H) 7 - 25 mg/dL 10/31/2024 8:09 AM EDT [facility] Creatinine 1.75(H) 0.60 - 1.30 mg/dL 10/31/2024 8:09 AM EDT [facility] Glucose 136(H) 70 - 100 mg/dL 10/31/2024 8:09 AM EDT [facility] Calcium 8.7 8.6 - 10.3 mg/dL 10/31/2024 8:09 AM EDT [facility] Phosphorus 4.1 2.1 - 4.7 mg/dL 10/31/2024 8:09 AM EDT [facility] Albumin 3.2(L) 3.5 - 5.7 g/dL 10/31/2024 8:09 AM EDT [facility] Osmolality, Calculated 309(H) 278 - 305 mOsm/kg 10/31/2024 8:09 AM EDT [facility] EGFR 50 10/31/2024 8:09 AM EDT [facility] Comment:As of 2021, the [...] EDT 10/31/2024 7:35 AM EDT [facility]land [facility] BLOOD ORDERABLES Denisse l Result Performing Organization Address City/[facility] Co de Phone Number [facility] [address] [facility] * Magnesium (10/31/2024 6:40 AM EDT) Magnesium 1.8 1.5 - 2.5 mg/dL 10/31/2024 8:09 AM EDT [facility] Plasma 10/31/2024 6:40 AM EDT 10/31/2024 7:35 AM EDT [facility] Garland Evens [facility] BLOOD ORDERABLES Denisse l Result Performing Organization Address [facility] de Phone Number [facility] [address] [facility] * (ABNORMAL) Hepatic Function Panel (10/31/2024 6:40 AM EDT) Total Bilirubin 2.7(H) 0.0 - 1.5 mg/dL 10/31/2024 8:09 AM EDT [facility] Bilirubin, Direct 1.57(H) 0.00 - 0.40 mg/dL 10/31/2024 8:09 AM EDT [facility] AST 26 13 - 39 U/L 10/31/2024 8:09 AM EDT [facility] ALT 68(H) 7 - 52 U/L 10/31/2024 8:09 AM EDT [facility] Alkaline Phosphatase 112 36 - 125 U/L 10/31/2024 8:09 AM EDT [facility] Total Protein 4.7(L) 6.4 - 8.9 g/dL 10/31/2024 8:09 AM EDT [facility] Albumin 3.2(L) 3.5 - 5.7 g/dL 10/31/2024 8:09 AM EDT [facility] Bilirubin, Indirect 1.13(H) 0.00 - 1.10 mg/dL 10/31/2024 8:09 AM EDT [facility] Plasma 10/31/2024 6:40 AM EDT 10/31/2024 7:35 AM EDT us [facility] BLOOD ORDERABLES Denisse l Result [facility] [address] [facility] [place] [address], [facility] * (ABNORMAL) CBC (10/31/2024 6:40 AM EDT) WBC 6.0 3.8 - 10.8 10E3/uL 10/31/2024 8:05 AM EDT [facility] RBC 3.14(L) 4.20 - 5.80 10E6/uL 10/31/2024 8:05 AM EDT [facility] Hemoglobin 9.6(L) 13.2 - 17.1 g/dL 10/31/2024 8:05 AM EDT [facility] Hematocrit 27.5(L) 38.5 - 50.0 % 10/31/2024 8:05 AM EDT [facility] MCV 87.6 80.0 - 100.0 fL 10/31/2024 8:05 AM EDT [facility] MCH 30.7 27.0 - 33.0 pg 10/31/2024 8:05 AM EDT [facility] MCHC 35.0 32.0 - 36.0 g/dL 10/31/2024 8:05 AM EDT [facility] RDW 17.9(H) 11.0 - 15.0 % 10/31/2024 8:05 AM EDT [facility] Platelets 44(L) 140 - 400 10E3/uL 10/31/2024 8:05 AM EDT [facility] Comment: CNV Specimen checked for clots. None detected. MPV 8.9 7.5 - 11.5 fL 10/31/2024 8:05 AM EDT [facility] Whole Blood 10/31/2024 6:40 AM EDT 10/31/2024 7:34 AM EDT us Beata Horner [facility] BLOOD ORDERABLES Denisse l Result Performing Organization Address City/[facility]/ZIP Co de Phone Number [facility] [address] [facility] * (ABNORMAL) POC Glucose Monitoring Device (10/30/2024 9:01 PM EDT) POC Glucose Monitoring Device 144(H) 70 - 100 mg/dL 10/30/2024 9:02 PM EDT [facility] Blood 10/30/2024 9:01 PM EDT 10/30/2024 9:01 PM EDT us Harvey Domínguez III, MD POINT OF CARE TEST ORDERABLES Final Result Performing Organization Address City/[facility] Co de Phone Number [facility] [address] [facility] * (ABNORMAL) POC Glucose Monitoring Device (10/30/2024 5:37 PM EDT) POC Glucose Monitoring Device 124(H) 70 - 100 mg/dL 10/30/2024 5:47 PM EDT [facility] Blood 10/30/2024 5:37 PM EDT 10/30/2024 5:47 PM EDT us Harvey Domínguez III, MD POINT OF CARE TEST ORDERABLES Final Result [facility] [address] [facility] * (ABNORMAL) POC Glucose Monitoring Device (10/30/2024 7:26 AM EDT) POC Glucose Monitoring Device 150(H) 70 - 100 mg/dL 10/30/2024 7:27 AM EDT [facility] Blood 10/30/2024 7:26 AM EDT 10/30/2024 7:27 AM EDT Harvey Domínguez III, MD POINT OF CARE TEST ORDERABLES Final Result Performing Organization Address [facility]/ZIP Co de Phone Number [facility] [address] * Tacrolimus level (10/30/2024 7:13 AM EDT) Tacrolimus (LC-MS) 9.5 3.0 - 15.0 ng/mL 10/30/2024 2:53 PM EDT [facility] Comment:Performed via liquid chromatography tandem mass spectrometry. Detection limit: 1 ng/mL. Individual target concentrations may vary due to target organ and time after transplant. This test has been developed and its performance characteristics determined by [facility] which is certified under the Clinical Laboratory [...] EDT 10/30/2024 7:26 AM EDT Priti Geiger [facility] BLOOD ORDERABLES Final Re sult Performing Organization Address [facility] Co de Phone Number [facility] [address] [facility] * ECG 12-lead (MUSE) (10/30/2024 6:51 AM EDT) 10/30/2024 6:51 AM EDT Narrative MUSE - 11/01/2024 9:21 AM EDT Ventricular Rate: 92 BPM Atrial Rate: 92 BPM P-R Interval: 174 ms QRS Duration: 96 ms QT: 376 ms QTc: 464 ms P [place]: 54 degrees R [place]: -24 degrees T [place]: 11 degrees Diagnosis Line: NORMAL SINUS RHYTHM ^ NORMAL ECG ^ ^ Confirmed by MD JOE, OTIS ([id number]) on 11/01/2024 9:21:09 AM Priti Geiger [facility] ECG ORDERABLES Final Result MUSE * (ABNORMAL) Renal Function Panel w/EGFR (10/30/2024 5:41 AM EDT) Sodium 140 133 - 146 mmol/L 10/30/2024 6:18 AM EDT [facility] Potassium 3.8 3.5 - 5.3 mmol/L 10/30/2024 6:18 AM EDT [facility] Chloride 111(H) 98 - 110 mmol/L 10/30/2024 6:18 AM EDT [facility] CO2 17(L) 21 - 33 mmol/L 10/30/2024 6:18 AM EDT [facility] Anion Gap 12 3 - 16 mmol/L 10/30/2024 6:18 AM EDT [facility] BUN 62(H) 7 - 25 mg/dL 10/30/2024 6:18 AM EDT [facility] Creatinine 1.96(H) 0.60 - 1.30 mg/dL 10/30/2024 6:18 AM EDT [facility] Glucose 116(H) 70 - 100 mg/dL 10/30/2024 6:18 AM EDT [facility] Calcium 9.0 8.6 - 10.3 mg/dL 10/30/2024 6:18 AM EDT [facility] Phosphorus 4.6 2.1 - 4.7 mg/dL 10/30/2024 6:18 AM EDT [facility] Albumin 3.2(L) 3.5 - 5.7 g/dL 10/30/2024 6:18 AM EDT [facility] Osmolality, Calculated 309(H) 278 - 305 mOsm/kg 10/30/2024 6:18 AM EDT [facility] EGFR 43 10/30/2024 6:18 AM EDT [facility] Comment:As of 2021, the [...] 5:41 AM EDT 10/30/2024 5:47 AM EDT [employer] [facility] BLOOD ORDERABLES Denisse l Result [facility] [address] [facility] * Magnesium (10/30/2024 5:41 AM EDT) Magnesium 2.2 1.5 - 2.5 mg/dL 10/30/2024 6:18 AM EDT [facility] Plasma 10/30/2024 5:41 AM EDT 10/30/2024 5:47 AM EDT [employer] [facility] BLOOD ORDERABLES Denisse l Result [facility] [address] [facility] * (ABNORMAL) Hepatic Function Panel (10/30/2024 5:41 AM EDT) Total Bilirubin 3.6(H) 0.0 - 1.5 mg/dL 10/30/2024 6:18 AM EDT [facility] Bilirubin, Direct 1.95(H) 0.00 - 0.40 mg/dL 10/30/2024 6:18 AM EDT [facility] AST 33 13 - 39 U/L 10/30/2024 6:18 AM EDT [facility] ALT 71(H) 7 - 52 U/L 10/30/2024 6:18 AM EDT [facility] Alkaline Phosphatase 80 36 - 125 U/L 10/30/2024 6:18 AM EDT [facility] Total Protein 4.8(L) 6.4 - 8.9 g/dL 10/30/2024 6:18 AM EDT [facility] Albumin 3.2(L) 3.5 - 5.7 g/dL 10/30/2024 6:18 AM EDT [facility] Bilirubin, Indirect 1.65(H) 0.00 - 1.10 mg/dL 10/30/2024 6:18 AM EDT [facility] Plasma 10/30/2024 5:41 AM EDT 10/30/2024 5:47 AM EDT us Beata Horner [facility] BLOOD ORDERABLES Denisse valle Result [facility] [address] [place] [address], [facility] * (ABNORMAL) CBC (10/30/2024 5:41 AM EDT) WBC 8.1 3.8 - 10.8 10E3/uL 10/30/2024 8:06 AM EDT [facility] RBC 3.29(L) 4.20 - 5.80 10E6/uL 10/30/2024 8:06 AM EDT [facility] Hemoglobin 10.1(L) 13.2 - 17.1 g/dL 10/30/2024 8:06 AM EDT [facility] Hematocrit 28.8(L) 38.5 - 50.0 % 10/30/2024 8:06 AM EDT [facility] MCV 87.6 80.0 - 100.0 fL 10/30/2024 8:06 AM EDT [facility] MCH 30.6 27.0 - 33.0 pg 10/30/2024 8:06 AM EDT [facility] MCHC 34.9 32.0 - 36.0 g/dL 10/30/2024 8:06 AM EDT [facility] RDW 18.1(H) 11.0 - 15.0 % 10/30/2024 8:06 AM EDT [facility] Platelets 44(L) 140 - 400 10E3/uL 10/30/2024 8:06 AM EDT [facility] Comment: CNV Specimen checked for clots. None detected. MPV 8.3 7.5 - 11.5 fL 10/30/2024 8:06 AM EDT [facility] Whole Blood 10/30/2024 5:41 AM EDT 10/30/2024 5:50 AM EDT Beata Horner [facility] BLOOD ORDERABLES Denisse l Result [facility] [address] [facility] * (ABNORMAL) POC Glucose Monitoring Device (10/29/2024 10:18 PM EDT) POC Glucose Monitoring Device 140(H) 70 - 100 mg/dL 10/29/2024 10:18 PM EDT [facility] Blood 10/29/2024 10:1 8 PM EDT 10/29/2024 10:18 PM EDT Harvey Domínguez III, MD POINT OF CARE TEST ORDERABLES Final Result Performing Organization Address [facility] Co de Phone Number [facility] [address] [facility] * (ABNORMAL) POC Glucose Monitoring Device (10/29/2024 6:42 PM EDT) POC Glucose Monitoring Device 152(H) 70 - 100 mg/dL 10/29/2024 6:43 PM EDT [facility] Blood 10/29/2024 6:42 PM EDT 10/29/2024 6:43 PM EDT Harvey Domínguez III, MD POINT OF CARE TEST ORDERABLES Final Result Performing Organization Address City/[facility]/ZIP Co de Phone Number [facility] [address] [facility] * (ABNORMAL) POC Glucose Monitoring Device (10/29/2024 11:35 AM EDT) [facility] POC Glucose Monitoring Device 130(H) 70 - 100 mg/dL 10/29/2024 11:36 AM EDT [facility] Blood 10/29/2024 11:3 5 AM EDT 10/29/2024 11:36 AM EDT Harvey Domínguez III, MD POINT OF CARE TEST ORDERABLES Final Result Performing Organization Address City/[facility] Co de Phone Number [facility] [address] * ECG 12 lead (MUSE) (10/29/2024 9:34 AM EDT) 10/29/2024 9:34 AM EDT Narrative MUSE - 10/29/2024 10:34 PM EDT Ventricular Rate: 97 BPM Atrial Rate: 97 BPM P-R Interval: 186 ms QRS Duration: 104 ms QT: 382 ms QTc: 485 ms P [place]: 54 degrees R [place]: -21 degrees T [place]: 1 degrees Diagnosis Line: NORMAL SINUS RHYTHM ^ NORMAL ECG ^ Confirmed by JORGE MACIAS ([id number]) on 10/29/2024 10:34:50 PM Afshan Bear MD ECG ORDERABLES Final Result Performing Organization Address [facility] de Phone Number MUSE * Tacrolimus level (10/29/2024 8:08 AM EDT) [facility] Tacrolimus (LC-MS) 10.4 3.0 - 15.0 ng/mL 10/29/2024 2:07 PM EDT [facility] Comment:Performed via liquid chromatography tandem mass spectrometry. Detection limit: 1 ng/mL. Individual target concentrations may vary due to target organ and time after transplant. This test has been developed and its performance characteristics determined by [facility] which is certified under the [...] EDT 10/29/2024 8:21 AM EDT Priti Geiger [facility] BLOOD ORDERABLES Final Re sult [facility] [address] [place] [address], [facility] * Prepare RBC, leukoreduced, 1 Units (10/29/2024 6:16 AM EDT) Product Code J2696T55 [facility] Unit Number [id number] [facility] Dispense Status Presumed Transfused_PT [facility] Blood Expiration Date [id number] [facility] Coding System [id number] [facility] Blood Bank Product Shay Plata MD BLOOD BANK PRODUCT O RDERABLES Final Result Performing Organization Address City/[facility]/ZIP Co de Phone Number [facility] * Prepare RBC, leukoreduced, 1 Units (10/29/2024 6:15 AM EDT) Product Code I0385M23 [facility] Unit Number [id number] [facility] Dispense Status Presumed Transfused_PT [facility] Blood Expiration Date [id number] [facility] Coding System [id number] [facility] Blood Bank Product Carlos Marks MD BLOOD BANK PRODUCT ORDERABL ES Final Result Performing Organization Address City/[facility]/ZIP Co de Phone Number [facility] * Prepare RBC, leukoreduced, 1 Units (10/29/2024 6:15 AM EDT) Product Code [id number] [facility] Unit Number [id number] [facility] Dispense Status Presumed Transfused_PT [facility] Blood Expiration Date [id number] [facility] Coding System [id number] [facility] Blood Bank Product John Moreno MD BLOOD BANK PRODUCT ORDERABLE S Final Result [facility] * (ABNORMAL) Renal Function Panel w/EGFR (10/29/2024 5:07 AM EDT) Sodium 144 133 - 146 mmol/L 10/29/2024 5:49 AM EDT [facility] Potassium 3.8 3.5 - 5.3 mmol/L 10/29/2024 5:49 AM EDT [facility] Chloride 113(H) 98 - 110 mmol/L 10/29/2024 5:49 AM EDT [facility] CO2 17(L) 21 - 33 mmol/L 10/29/2024 5:49 AM EDT [facility] Anion Gap 14 3 - 16 mmol/L 10/29/2024 5:49 AM EDT [facility] BUN 57(H) 7 - 25 mg/dL 10/29/2024 5:49 AM EDT [facility] Creatinine 1.93(H) 0.60 - 1.30 mg/dL 10/29/2024 5:49 AM EDT [facility] Glucose 110(H) 70 - 100 mg/dL 10/29/2024 5:49 AM EDT [facility] Calcium 9.3 8.6 - 10.3 mg/dL 10/29/2024 5:49 AM EDT [facility] Phosphorus 4.8(H) 2.1 - 4.7 mg/dL 10/29/2024 5:49 AM EDT [facility] Albumin 3.5 3.5 - 5.7 g/dL 10/29/2024 5:49 AM EDT [facility] Osmolality, Calculated 314(H) 278 - 305 mOsm/kg 10/29/2024 5:49 AM EDT [facility] EGFR 44 10/29/2024 5:49 AM EDT [facility] Comment:As of 2021, the [...] 5:07 AM EDT 10/29/2024 5:13 AM EDT [employer] BLOOD ORDERABLES Denisse l Result Performing Organization Address City/[facility]/ZIP Co de Phone Number [facility] [address] [facility] * Magnesium (10/29/2024 5:07 AM EDT) Magnesium 2.1 1.5 - 2.5 mg/dL 10/29/2024 5:49 AM EDT [facility] Plasma 10/29/2024 5:07 AM EDT 10/29/2024 5:13 AM EDT [employer] [facility] BLOOD ORDERABLES Denisse l Result Performing Organization Address [facility]/ZIP Co de Phone Number [facility] [address] [facility] * (ABNORMAL) Hepatic Function Panel (10/29/2024 5:07 AM EDT) Total Bilirubin 4.2(H) 0.0 - 1.5 mg/dL 10/29/2024 5:49 AM EDT [facility] Bilirubin, Direct 2.85(H) 0.00 - 0.40 mg/dL 10/29/2024 5:49 AM EDT [facility] AST 31 13 - 39 U/L 10/29/2024 5:49 AM EDT [facility] ALT 88(H) 7 - 52 U/L 10/29/2024 5:49 AM EDT [facility] Alkaline Phosphatase 51 36 - 125 U/L 10/29/2024 5:49 AM EDT [facility] Total Protein 5.2(L) 6.4 - 8.9 g/dL 10/29/2024 5:49 AM EDT [facility] Albumin 3.5 3.5 - 5.7 g/dL 10/29/2024 5:49 AM EDT [facility] Bilirubin, Indirect 1.35(H) 0.00 - 1.10 mg/dL 10/29/2024 5:49 AM EDT [facility] Plasma 10/29/2024 5:07 AM EDT 10/29/2024 5:13 AM EDT us Beata Horner [employer] LAB BLOOD ORDERABLES Denisse valle Result [facility] [address] [place] [address], [facility] * (ABNORMAL) CBC (10/29/2024 5:07 AM EDT) WBC 7.8 3.8 - 10.8 10E3/uL 10/29/2024 5:38 AM EDT [facility] RBC 3.05(L) 4.20 - 5.80 10E6/uL 10/29/2024 5:38 AM EDT [facility] Hemoglobin 9.0(L) 13.2 - 17.1 g/dL 10/29/2024 5:38 AM EDT [facility] Hematocrit 26.7(L) 38.5 - 50.0 % 10/29/2024 5:38 AM EDT [facility] MCV 87.4 80.0 - 100.0 fL 10/29/2024 5:38 AM EDT [facility] MCH 29.7 27.0 - 33.0 pg 10/29/2024 5:38 AM EDT [facility] MCHC 33.9 32.0 - 36.0 g/dL 10/29/2024 5:38 AM EDT [facility] RDW 18.3(H) 11.0 - 15.0 % 10/29/2024 5:38 AM EDT [facility] Platelets 41(L) 140 - 400 10E3/uL 10/29/2024 5:38 AM EDT [facility] Comment: CNV Specimen checked for clots. None detected. MPV 7.5 7.5 - 11.5 fL 10/29/2024 5:38 AM EDT [facility] Whole Blood 10/29/2024 5:07 AM EDT 10/29/2024 5:13 AM EDT us Beata [place] Horner [facility] BLOOD ORDERABLES Denisse l Result [facility] [address] [place] [address], [facility] * (ABNORMAL) TEG-Bypass/ECMO/Liver HN (Factor function, Platelet/Fibrin Clot Strength w/Clot Breakdown, Heparinase In All Channels) (10/29/2024 5:07 AM EDT) Citrated Kaolin Reaction Time (TEGECMOLIVER) 8.9 4.6 - 9.1 minutes 10/29/2024 7:04 AM EDT [facility] Citrated Kaolin W/Heparinase Reaction Time (TEGECMOLIVER) 7.4 4.3 - 8.3 minutes 10/29/2024 7:04 AM EDT [facility] Citrated Kaolin Maximum Amplitude (TEGECMOLIVER) 52.9 52.0 - 69.0 mm 10/29/2024 7:04 AM EDT [facility] Citrated Functional Fibrinogen W/Heparinase Maximum Amplitude(TEGEC MOLIVER) 20.7 15.0 - 34.0 mm 10/29/2024 7:04 AM EDT [facility] Citrated Rapid Teg W/Heparinase Maximum Amplitude (TEGECMOLIVER) 49.7(L) 53.0 - 69.0 mm 10/29/2024 7:04 AM EDT [facility] Citrated Kaolin w/Heparinase Percent Lysis (TEGECMOLIVER) 0.0 0.0 - 3.2 % 10/29/2024 7:04 AM EDT [facility] Whole Blood (Citrate) 10/29/2024 5:07 AM EDT 10/29/2024 5:10 AM EDT Kemar Sahni MD LAB BLOOD ORDERABLES Final Result [facility] [address] * (ABNORMAL) TEG-Bypass/ECMO/Liver HN (Factor function, Platelet/Fibrin Clot Strength w/Clot Breakdown, Heparinase In All Channels) (10/28/2024 11:55 PM EDT) [facility] Citrated Kaolin Reaction Time (TEGECMOLIVER) 8.6 4.6 - 9.1 minutes 10/29/2024 2:01 AM EDT [facility] Citrated Kaolin W/Heparinase Reaction Time (TEGECMOLIVER) 8.7(H) 4.3 - 8.3 minutes 10/29/2024 2:01 AM EDT [facility] Citrated Kaolin Maximum Amplitude (TEGECMOLIVER) 47.9(L) 52.0 - 69.0 mm 10/29/2024 2:01 AM EDT [facility] Citrated Functional Fibrinogen W/Heparinase Maximum Amplitude(TEGEC MOLIVER) 22.0 15.0 - 34.0 mm 10/29/2024 2:01 AM EDT [facility] Citrated Rapid Teg W/Heparinase Maximum Amplitude (TEGECMOLIVER) 45.9(L) 53.0 - 69.0 mm 10/29/2024 2:01 AM EDT [facility] Citrated Kaolin w/Heparinase Percent Lysis (TEGECMOLIVER) 0.0 0.0 - 3.2 % 10/29/2024 2:01 AM EDT [facility] Whole Blood (Citrate) 10/28/2024 11:55 PM EDT 10/28/2024 11:58 PM EDT Kmear Sahni MD LAB BLOOD ORDERABLES Final Result [facility] [address] * (ABNORMAL) CBC, STAT (10/28/2024 8:04 PM EDT) Pathologist [facility] WBC 3.9 3.8 - 10.8 10E3/uL 10/28/2024 8:36 PM EDT [facility] RBC 2.66(L) 4.20 - 5.80 10E6/uL 10/28/2024 8:36 PM EDT [facility] Hemoglobin 8.0(L) 13.2 - 17.1 g/dL 10/28/2024 8:36 PM EDT [facility] Hematocrit 23.0(L) 38.5 - 50.0 % 10/28/2024 8:36 PM EDT [facility] MCV 86.4 80.0 - 100.0 fL 10/28/2024 8:36 PM EDT [facility] MCH 29.9 27.0 - 33.0 pg 10/28/2024 8:36 PM EDT [facility] MCHC 34.6 32.0 - 36.0 g/dL 10/28/2024 8:36 PM EDT [facility] RDW 18.6(H) 11.0 - 15.0 % 10/28/2024 8:36 PM EDT [facility] Platelets 29(L) 140 - 400 10E3/uL 10/28/2024 8:36 PM EDT [facility] Comment: CNV Specimen checked for clots. None detected. MPV 7.8 7.5 - 11.5 fL 10/28/2024 8:36 PM EDT [facility] Whole Blood 10/28/2024 8:04 PM EDT 10/28/2024 8:14 PM EDT us Carlos Marks MD LAB BLOOD ORDERABLES Final Result [facility] [address] [place] [address], [facility] * (ABNORMAL) POC Glucose Monitoring Device (10/28/2024 8:03 PM EDT) Pathologist [facility] POC Glucose Monitoring Device 122(H) 70 - 100 mg/dL 10/28/2024 8:04 PM EDT [facility] Blood 10/28/2024 8:03 PM EDT 10/28/2024 8:04 PM EDT Harvey Domínguez III, MD POINT OF CARE TEST ORDERABLES Final Result [facility] [address] * (ABNORMAL) TEG-Bypass/ECMO/Liver HN (Factor function, Platelet/Fibrin Clot Strength w/Clot Breakdown, Heparinase In All Channels) (10/28/2024 6:39 PM EDT) [facility] Citrated Kaolin Reaction Time (TEGECMOLIVER) 9.0 4.6 - 9.1 minutes 10/28/2024 7:50 PM EDT [facility] Citrated Kaolin W/Heparinase Reaction Time (TEGECMOLIVER) 8.3 4.3 - 8.3 minutes 10/28/2024 7:50 PM EDT [facility] Citrated Kaolin Maximum Amplitude (TEGECMOLIVER) 47.6(L) 52.0 - 69.0 mm 10/28/2024 7:50 PM EDT [facility] Citrated Functional Fibrinogen W/Heparinase Maximum Amplitude(TEGEC MOLIVER) 20.4 15.0 - 34.0 mm 10/28/2024 7:50 PM EDT [facility] Citrated Rapid Teg W/Heparinase Maximum Amplitude (TEGECMOLIVER) 44.0(L) 53.0 - 69.0 mm 10/28/2024 7:50 PM EDT [facility] Citrated Kaolin w/Heparinase Percent Lysis (TEGECMOLIVER) 0.0 0.0 - 3.2 % 10/28/2024 7:50 PM EDT [facility] Whole Blood (Citrate) 10/28/2024 6:39 PM EDT 10/28/2024 6:42 PM EDT us Kemar Sahni MD LAB BLOOD ORDERABLES Final Result [facility] [address] [facility] [place] [address], [place] * (ABNORMAL) POC Glucose Monitoring Device (10/28/2024 5:31 PM EDT) POC Glucose Monitoring Device 130(H) 70 - 100 mg/dL 10/28/2024 5:31 PM EDT [facility] Blood 10/28/2024 5:31 PM EDT 10/28/2024 5:31 PM EDT us Harvey Domínguez III, MD POINT OF CARE TEST ORDERABLES Final Result Performing Organization Address [facility]/ZIP Co de Phone Number [facility] [address] [place] [address], [facility] * Transfuse RBC Transfusion Rate: Per dept routine (10/28/2024 5:23 PM EDT) us Shay Plata MD NURSING TREATMENT OR DERABLES - BLOOD ADMIN Final Result Performing Organization Address [facility] Co de Phone Number EXTERNAL * Transfuse RBC Transfusion Rate: Per dept routine, 1 Units (10/28/2024 5:23 PM EDT) us Shay Plata MD NURSING TREATMENT OR DERABLES - BLOOD ADMIN Final Result Performing Organization Address [facility] de Phone Number EXTERNAL * US [...] EXAM: US ABDOMEN LIMITED EXAM: US DUPLEX [id number] COMPLETE INDICATION: Post-op liver transplant DATE: 10/28/2024 [...] retrohepatic inferior vena cava is patent. [place] right kidney is partially visualized. A prominent [...] EXAM: US ABDOMEN LIMITED EXAM: US DUPLEX [id number] COMPLETE INDICATION: Post-op liver transplant DATE: 10/28/2024 [...] retrohepatic inferior vena cava is patent. [place] right kidney is partially visualized. A prominent [...] 4:42 PM EDT us Shay Plata MD [facility] US ORDERABLES Fi nal Result * US Duplex Fvw-Loe-Fyyouph Comp (10/28/2024 4:23 PM EDT) Anatomical Region [...] EXAM: US ABDOMEN LIMITED EXAM: US DUPLEX [id number] COMPLETE INDICATION: Post-op liver transplant DATE: 10/28/2024 [...] retrohepatic inferior vena cava is patent. [place] right kidney is partially visualized. A prominent [...] EXAM: US ABDOMEN LIMITED EXAM: US DUPLEX [id number] COMPLETE INDICATION: Post-op liver transplant DATE: 10/28/2024 [...] retrohepatic inferior vena cava is patent. [place] right kidney is partially visualized. A prominent [...] 10/28/2024 4:42 PM EDT Shay Plata MD [facility] ORDERABLES Fi nal Result * (ABNORMAL) CBC, STAT (10/28/2024 2:49 PM EDT) [facility] WBC 4.0 3.8 - 10.8 10E3/uL 10/28/2024 3:07 PM EDT [facility] RBC 2.44(L) 4.20 - 5.80 10E6/uL 10/28/2024 3:07 PM EDT [facility] Hemoglobin 7.5(L) 13.2 - 17.1 g/dL 10/28/2024 3:07 PM EDT [facility] Hematocrit 21.4(L) 38.5 - 50.0 % 10/28/2024 3:07 PM EDT [facility] MCV 87.6 80.0 - 100.0 fL 10/28/2024 3:07 PM EDT [facility] MCH 30.6 27.0 - 33.0 pg 10/28/2024 3:07 PM EDT [facility] MCHC 34.9 32.0 - 36.0 g/dL 10/28/2024 3:07 PM EDT [facility] RDW 18.4(H) 11.0 - 15.0 % 10/28/2024 3:07 PM EDT [facility] Platelets 30(L) 140 - 400 10E3/uL 10/28/2024 3:07 PM EDT [facility] Comment: CNV Specimen checked for clots. None detected. MPV 7.7 7.5 - 11.5 fL 10/28/2024 3:07 PM EDT [facility] Whole Blood 10/28/2024 2:49 PM EDT 10/28/2024 2:53 PM EDT us Carlos Marks MD LAB BLOOD ORDERABLES Final Result Performing Organization Address City/State/[facility] Co de Phone Number [facility] [address] * ECG 12 lead (MUSE) (10/28/2024 1:22 PM EDT) 10/28/2024 1:22 PM EDT Narrative MUSE - 10/29/2024 10:34 PM EDT Ventricular Rate: 104 BPM Atrial Rate: 104 BPM P-R Interval: 172 ms QRS Duration: 90 ms QT: 354 ms QTc: 465 ms P [place]: 58 degrees R [place]: -19 degrees T [place]: 38 degrees Diagnosis Line: SINUS TACHYCARDIA ^ OTHERWISE NORMAL ECG ^ ^ Confirmed by JOGRE MACIAS ([id number]) on 10/29/2024 10:34:22 PM us Hillary Fernandes PharmD ECG ORDERABLES Final Res ult MUSE * (ABNORMAL) POC Glucose Monitoring Device (10/28/2024 12:54 PM EDT) POC Glucose Monitoring Device 119(H) 70 - 100 mg/dL 10/28/2024 12:55 PM EDT [facility] Blood 10/28/2024 12:5 4 PM EDT 10/28/2024 12:55 PM EDT us Harvey Domínguez III, MD POINT OF CARE TEST ORDERABLES Final Result Performing Organization Address City/[facility] Co de Phone Number [facility] [address] * Transfuse RBC Transfusion Rate: Per dept routine (10/28/2024 12:31 PM EDT) us Carlos Marks MD NURSING TREATMENT ORDERABLE S - BLOOD ADMIN Final Result Performing Organization Address City/[facility]/ZIP Co de Phone Number EXTERNAL * Transfuse RBC Transfusion Rate: Per dept routine, 1 Units (10/28/2024 12:31 PM EDT) us Carlos Marks MD NURSING TREATMENT ORDERABLE S - BLOOD ADMIN Final Result Performing Organization Address City/[facility] Co de Phone Number EXTERNAL * Protime-INR, STAT (10/28/2024 11:09 AM EDT) Protime 14.3 12.1 - 15.1 seconds 10/28/2024 11:29 AM EDT [facility] INR 1.1 0.9 - 1.1 10/28/2024 11:29 AM EDT [facility] Comment: RECOMMENDED THERAPEUTIC RANGES USING INR : Stable oral anticoagulant therapy: 2.0 - 3.0 Mechanical prosthetic heart valve: 2.5 - 3.5 Recurrent acute myocardial infarction: 2.5 - 3.5 Plasma 10/28/2024 11:0 9 AM EDT 10/28/2024 11:16 AM EDT us Carlos Marks MD LAB BLOOD ORDERABLES Final Result Performing Organization Address [facility] Co de Phone Number [facility] [address] * (ABNORMAL) Lactic Acid, STAT (10/28/2024 11:09 AM EDT) Lactate 0.3(L) 0.5 - 2.2 mmol/L 10/28/2024 11:37 AM EDT [facility] Plasma 10/28/2024 11:0 9 AM EDT 10/28/2024 11:15 AM EDT us Carlos Marks MD LAB BLOOD ORDERABLES Final Result Performing Organization Address [facility] Co de Phone Number [facility] [address] [facility] * Magnesium, STAT (10/28/2024 11:09 AM EDT) Magnesium 2.1 1.5 - 2.5 mg/dL 10/28/2024 11:47 AM EDT [facility] Plasma 10/28/2024 11:0 9 AM EDT 10/28/2024 11:16 AM EDT us Carlos Marks MD LAB BLOOD ORDERABLES Final Result Performing Organization Address [facility] Co de Phone Number [facility] [address] [facility] * (ABNORMAL) Renal Function Panel w/EGFR, STAT (10/28/2024 11:09 AM EDT) Sodium 144 133 - 146 mmol/L 10/28/2024 11:47 AM EDT [facility] Potassium 3.4(L) 3.5 - 5.3 mmol/L 10/28/2024 11:47 AM EDT [facility] Chloride 112(H) 98 - 110 mmol/L 10/28/2024 11:47 AM EDT [facility] CO2 22 21 - 33 mmol/L 10/28/2024 11:47 AM EDT [facility] Anion Gap 10 3 - 16 mmol/L 10/28/2024 11:47 AM EDT [facility] BUN 57(H) 7 - 25 mg/dL 10/28/2024 11:47 AM EDT [facility] Creatinine 2.01(H) 0.60 - 1.30 mg/dL 10/28/2024 11:47 AM EDT [facility] Glucose 108(H) 70 - 100 mg/dL 10/28/2024 11:47 AM EDT [facility] Calcium 8.8 8.6 - 10.3 mg/dL 10/28/2024 11:47 AM EDT [facility] Phosphorus 4.0 2.1 - 4.7 mg/dL 10/28/2024 11:47 AM EDT [facility] Albumin 3.3(L) 3.5 - 5.7 g/dL 10/28/2024 11:47 AM EDT [facility] Osmolality, Calculated 314(H) 278 - 305 mOsm/kg 10/28/2024 11:47 AM EDT [facility] EGFR 42 10/28/2024 11:47 AM EDT [facility] Comment:As of 2021, the [...] Marks MD LAB BLOOD ORDERABLES Final Result [facility] [address] * (ABNORMAL) TEG-Bypass/ECMO/Liver HN (Factor function, Platelet/Fibrin Clot Strength w/Clot Breakdown, Heparinase In All Channels) (10/28/2024 11:09 AM EDT) [facility] Citrated Kaolin Reaction Time (TEGECMOLIVER) 9.2(H) 4.6 - 9.1 minutes 10/28/2024 12:30 PM EDT [facility] Citrated Kaolin W/Heparinase Reaction Time (TEGECMOLIVER) 9.6(H) 4.3 - 8.3 minutes 10/28/2024 12:30 PM EDT [facility] Citrated Kaolin Maximum Amplitude (TEGECMOLIVER) 51.2(L) 52.0 - 69.0 mm 10/28/2024 12:30 PM EDT [facility] Citrated Functional Fibrinogen W/Heparinase Maximum Amplitude(TEGEC MOLIVER) 21.6 15.0 - 34.0 mm 10/28/2024 12:30 PM EDT [facility] Citrated Rapid Teg W/Heparinase Maximum Amplitude (TEGECMOLIVER) 49.3(L) 53.0 - 69.0 mm 10/28/2024 12:30 PM EDT [facility] Citrated Kaolin w/Heparinase Percent Lysis (TEGECMOLIVER) 0.0 0.0 - 3.2 % 10/28/2024 12:30 PM EDT [facility] Whole Blood (Citrate) 10/28/2024 11:09 AM EDT 10/28/2024 11:14 AM EDT Kemar Sahni MD LAB BLOOD ORDERABLES Final Result [facility] [address] * (ABNORMAL) CBC (10/28/2024 10:21 AM EDT) WBC 4.1 3.8 - 10.8 10E3/uL 10/28/2024 10:41 AM EDT [facility] RBC 2.30(L) 4.20 - 5.80 10E6/uL 10/28/2024 10:41 AM EDT [facility] Hemoglobin 7.1(L) 13.2 - 17.1 g/dL 10/28/2024 10:41 AM EDT [facility] Hematocrit 20.4(L) 38.5 - 50.0 % 10/28/2024 10:41 AM EDT [facility] MCV 88.5 80.0 - 100.0 fL 10/28/2024 10:41 AM EDT [facility] MCH 30.7 27.0 - 33.0 pg 10/28/2024 10:41 AM EDT [facility] MCHC 34.7 32.0 - 36.0 g/dL 10/28/2024 10:41 AM EDT [facility] RDW 18.7(H) 11.0 - 15.0 % 10/28/2024 10:41 AM EDT [facility] Platelets 37(L) 140 - 400 10E3/uL 10/28/2024 10:41 AM EDT [facility] Comment: CNV Specimen checked for clots. None detected. MPV 7.6 7.5 - 11.5 fL 10/28/2024 10:41 AM EDT [facility] Whole Blood 10/28/2024 10:2 1 AM EDT 10/28/2024 10:29 AM EDT us Carlos Marks MD LAB BLOOD ORDERABLES Final Result [facility] [address] [place] [address], [facility] * POC Glucose Monitoring Device (10/28/2024 9:07 AM EDT) POC Glucose Monitoring Device 97 70 - 100 mg/dL 10/28/2024 9:08 AM EDT [facility] Blood 10/28/2024 9:07 AM EDT 10/28/2024 9:08 AM EDT Harvey Domínguez III, MD POINT OF CARE TEST ORDERABLES Final Result Performing Organization Address [facility] Co de Phone Number [facility] [address] * (ABNORMAL) Tacrolimus level (10/28/2024 8:20 AM EDT) Tacrolimus (LC-MS) <1.0(L) 3.0 - 15.0 ng/mL 10/28/2024 2:02 PM EDT [facility] Comment:Performed via liquid chromatography tandem mass spectrometry. Detection limit: 1 ng/mL. Individual target concentrations may vary due to target organ and time after transplant. This test has been developed and its performance characteristics determined by [facility] which is certified under the [...] EDT 10/28/2024 8:29 AM EDT Priti Geiger [facility] BLOOD ORDERABLES Final Re sult Performing Organization Address [facility] de Phone Number [facility] [address] [facility] * (ABNORMAL) POC Glucose Monitoring Device (10/28/2024 8:10 AM EDT) POC Glucose Monitoring Device 102(H) 70 - 100 mg/dL 10/28/2024 8:11 AM EDT [facility] Blood 10/28/2024 8:10 AM EDT 10/28/2024 8:11 AM EDT Harvey Domínguez III, MD POINT OF CARE TEST ORDERABLES Final Result Performing Organization Address [facility] Co de Phone Number [facility] [address] [facility]. [address] * POC Glucose Monitoring Device (10/28/2024 6:17 AM EDT) POC Glucose Monitoring Device 100 70 - 100 mg/dL 10/28/2024 6:18 AM EDT [facility] Blood 10/28/2024 6:17 AM EDT 10/28/2024 6:18 AM EDT Harvey Domínguez III, MD POINT OF CARE TEST ORDERABLES Final Result Performing Organization Address [facility] Co de Phone Number [facility] [address] [facility] * Prepare Platelets, leukoreduced (10/28/2024 6:15 AM EDT) Product Code [id number] HCLL Unit Number [id number] HCLL Dispense Status Presumed Transfused_PT HCLL Blood Expiration Date HCLL Coding System [id number] HCLL Product Code [id number] HCLL Unit Number [id number] HCLL Dispense Status Presumed Transfused_PT HCLL Blood Expiration Date HCLL Coding System [id number] HCLL us Attending Provider Unknown BLOOD BANK PRODUCT OR DERABLES Final Result Performing Organization Address [facility] Co de Phone Number HCLL * Prepare Fresh Frozen Plasma (10/28/2024 6:15 AM EDT) Product Code [id number] HCLL Unit Number [id number] HCLL Dispense Status Released from Crossmatch_RE HCLL Blood Expiration Date HCLL Coding System [id number] HCLL Product Code [id number] HCLL Unit Number [id number] HCLL Dispense Status Presumed Transfused_PT HCLL Blood Expiration Date HCLL Coding System [id number] HCLL Product Code [id number] HCLL Unit Number [id number] HCLL Dispense Status Released from Crossmatch_RE HCLL Blood Expiration Date HCLL Coding System [id number] HCLL Product Code D1601R47 HCLL Unit Number [id number] HCLL Dispense Status Presumed Transfused_PT HCLL Blood Expiration Date HCLL Coding System WKKD978 HCLL Product Code O0422F84 HCLL Unit Number [id number] HCLL Dispense Status Released from Crossmatch_RE [facility]LL Blood Expiration Date [id number] HCLL Coding System [id number] HCLL us Attending Provider Unknown BLOOD BANK PRODUCT OR DERABLES Final Result HCLL * Prepare RBC, leukoreduced (10/28/2024 6:15 AM EDT) Product Code L6434W36 [facility] Unit Number [id number] HCLL Dispense Status Released from Crossmatch_RE [facility]LL Blood Expiration Date HCLL Coding System BGPB349 HCLL Product Code N5567N43 HCLL Unit Number [id number] HCLL Dispense Status Presumed Transfused_PT HCLL Blood Expiration Date [id number] HCLL Coding System YZCQ424 HCLL Product Code P8954B20 HCLL Unit Number [id number] HCLL Dispense Status Released from Crossmatch_RE [facility]LL Blood Expiration Date HCLL Coding System HPNN712 HCLL Product Code V4897K71 HCLL Unit Number [id number] HCLL Dispense Status Presumed Transfused_PT HCLL Blood Expiration Date HCLL Coding System XGIG811 HCLL Product Code Z9654O92 HCLL Unit Number [id number] HCLL Dispense Status Released from Crossmatch_RE [facility]LL Blood Expiration Date HCLL Coding System YLWG097 HCLL Attending Provider Unknown BLOOD BANK PRODUCT OR DERABLES Final Result Performing Organization Address [facility]/ZIP Co de Phone Number HCLL * Prepare Platelets, leukoreduced, 1 Units (10/28/2024 6:15 AM EDT) Product Code L8264F62 HCLL Unit Number [id number] [facility]LL Dispense Status Presumed Transfused_PT HCLL Blood Expiration Date [id number] HCLL Coding System [id number] [facility]LL Blood Bank Product John Pina MD BLOOD BANK PRODUCT ORDERABLES F inal Result Performing Organization Address [facility] Co de Phone Number HCLL * Prepare Cryoprecipitate, 1 Units (10/28/2024 6:15 AM EDT) Product Code V2126R71 HCLL Unit Number [id number] HCLL Dispense Status Presumed Transfused_PT HCLL Blood Expiration Date HCLL Coding System [id number] HCLL Product Code O4267K86 HCLL Unit Number [id number] HCLL Dispense Status Presumed Transfused_PT HCLL Blood Expiration Date [id number] HCLL Coding System [id number] HCLL Blood Bank Product John Pina MD BLOOD BANK PRODUCT ORDERABLES F inal Result Performing Organization Address [facility] Co de Phone Number HCLL * Prepare Fresh Frozen Plasma, 1 Units (10/28/2024 6:15 AM EDT) Product Code U0631K83 HCLL Unit Number [id number] HCLL Dispense Status Presumed Transfused_PT HCLL Blood Expiration Date [id number] HCLL Coding System [id number] HCLL Blood Bank Product John Pina MD BLOOD BANK PRODUCT ORDERABLES F inal Result Performing Organization Address [facility]/ZIP Co de Phone Number HCLL * Prepare Cryoprecipitate, 1 Units (10/28/2024 6:15 AM EDT) Product Code U7600R11 HCLL Unit Number [id number] HCLL Dispense Status Presumed Transfused_PT HCLL Blood Expiration Date HCLL Coding System [id number] HCLL Product Code G1883Q17 HCLL Unit Number [id number] HCLL Dispense Status Presumed Transfused_PT HCLL Blood Expiration Date HCLL Coding System [id number] HCLL Product Code O0634I45 HCLL Unit Number [id number] HCLL Dispense Status Presumed Transfused_PT HCLL Blood Expiration Date HCLL Coding System [id number] HCLL Product Code V1465F68 HCLL Unit Number [id number] HCLL Dispense Status Presumed Transfused_PT HCLL Blood Expiration Date HCLL Coding System [id number] HCLL Blood Bank Product John Pina MD BLOOD BANK PRODUCT ORDERABLES F inal Result Performing Organization Address [facility] de Phone Number HCLL * (ABNORMAL) POC Glucose Monitoring Device (10/28/2024 4:55 AM EDT) POC Glucose Monitoring Device 104(H) 70 - 100 mg/dL 10/28/2024 4:57 AM EDT [facility] Blood 10/28/2024 4:55 AM EDT 10/28/2024 4:57 AM EDT Harvey Domínguez III, MD POINT OF CARE TEST ORDERABLES Final Result Performing Organization Address [facility] Co de Phone Number [facility] [address] [place] [address], [facility] * TEG-Bypass/ECMO/Liver HN (Factor function, Platelet/Fibrin Clot Strength w/Clot Breakdown, Heparinase In All Channels) (10/28/2024 4:13 AM EDT) Citrated Kaolin Reaction Time (TEGECMOLIVER) 7.2 4.6 - 9.1 minutes 10/28/2024 5:38 AM EDT [facility] Citrated Kaolin W/Heparinase Reaction Time (TEGECMOLIVER) 7.8 4.3 - 8.3 minutes 10/28/2024 5:38 AM EDT [facility] Citrated Kaolin Maximum Amplitude (TEGECMOLIVER) 53.0 52.0 - 69.0 mm 10/28/2024 5:38 AM EDT [facility] Citrated Functional Fibrinogen W/Heparinase Maximum Amplitude(TEGEC MOLIVER) 21.4 15.0 - 34.0 mm 10/28/2024 5:38 AM EDT [facility] Citrated Rapid Teg W/Heparinase Maximum Amplitude (TEGECMOLIVER) 54.7 53.0 - 69.0 mm 10/28/2024 5:38 AM EDT [facility] Citrated Kaolin w/Heparinase Percent Lysis (TEGECMOLIVER) 0.0 0.0 - 3.2 % 10/28/2024 5:38 AM EDT [facility] Whole Blood (Citrate) 10/28/2024 4:13 AM EDT 10/28/2024 4:28 AM EDT us Kemar Sahni MD LAB BLOOD ORDERABLES Final Result Performing Organization Address City/State/[facility] Co de Phone Number [facility] [address] [address] * Protime-INR (10/28/2024 4:13 AM EDT) Protime 14.6 12.1 - 15.1 seconds 10/28/2024 4:53 AM EDT [facility] INR 1.1 0.9 - 1.1 10/28/2024 4:53 AM EDT [facility] Comment: RECOMMENDED THERAPEUTIC RANGES USING INR : Stable oral anticoagulant therapy: 2.0 - 3.0 Mechanical prosthetic heart valve: 2.5 - 3.5 Recurrent acute myocardial infarction: 2.5 - 3.5 Plasma 10/28/2024 4:13 AM EDT 10/28/2024 4:41 AM EDT Kemar Sahni MD LAB BLOOD ORDERABLES Final Result [facility] [address] * Magnesium (10/28/2024 4:13 AM EDT) Magnesium 2.2 1.5 - 2.5 mg/dL 10/28/2024 5:15 AM EDT [facility] Plasma 10/28/2024 4:13 AM EDT 10/28/2024 4:41 AM EDT Kemar Sahni MD LAB BLOOD ORDERABLES Final Result Performing Organization Address [facility] Co de Phone Number [facility] [address] * (ABNORMAL) Hepatic Function Panel (10/28/2024 4:13 AM EDT) Total Bilirubin 2.3(H) 0.0 - 1.5 mg/dL 10/28/2024 5:15 AM EDT [facility] Bilirubin, Direct 1.67(H) 0.00 - 0.40 mg/dL 10/28/2024 5:15 AM EDT [facility] AST 44(H) 13 - 39 U/L 10/28/2024 5:15 AM EDT [facility] ALT 101(H) 7 - 52 U/L 10/28/2024 5:15 AM EDT [facility] Alkaline Phosphatase 26(L) 36 - 125 U/L 10/28/2024 5:15 AM EDT [facility] Total Protein 4.5(L) 6.4 - 8.9 g/dL 10/28/2024 5:15 AM EDT [facility] Albumin 3.1(L) 3.5 - 5.7 g/dL 10/28/2024 5:15 AM EDT [facility] Bilirubin, Indirect 0.63 0.00 - 1.10 mg/dL 10/28/2024 5:15 AM EDT [facility] Plasma 10/28/2024 4:13 AM EDT 10/28/2024 4:41 AM EDT Kemar Sahni MD LAB BLOOD ORDERABLES Final Result [facility] [address] [place], [place] [address] * (ABNORMAL) Renal Function Panel w/EGFR (10/28/2024 4:13 AM EDT) Sodium 142 133 - 146 mmol/L 10/28/2024 5:15 AM EDT [facility] Potassium 3.5 3.5 - 5.3 mmol/L 10/28/2024 5:15 AM EDT [facility] Chloride 111(H) 98 - 110 mmol/L 10/28/2024 5:15 AM EDT [facility] CO2 22 21 - 33 mmol/L 10/28/2024 5:15 AM EDT [facility] Anion Gap 9 3 - 16 mmol/L 10/28/2024 5:15 AM EDT [facility] BUN 58(H) 7 - 25 mg/dL 10/28/2024 5:15 AM EDT [facility] Creatinine 2.24(H) 0.60 - 1.30 mg/dL 10/28/2024 5:15 AM EDT [facility] Glucose 103(H) 70 - 100 mg/dL 10/28/2024 5:15 AM EDT [facility] Calcium 9.1 8.6 - 10.3 mg/dL 10/28/2024 5:15 AM EDT [facility] Phosphorus 4.8(H) 2.1 - 4.7 mg/dL 10/28/2024 5:15 AM EDT [facility] Albumin 3.1(L) 3.5 - 5.7 g/dL 10/28/2024 5:15 AM EDT [facility] Osmolality, Calculated 310(H) 278 - 305 mOsm/kg 10/28/2024 5:15 AM EDT [facility] EGFR 37 10/28/2024 5:15 AM EDT [facility] Comment:As of 2021, [...] Sahni MD LAB BLOOD ORDERABLES Final Result [facility] [address] [place] [address], [facility] * (ABNORMAL) CBC (10/28/2024 4:13 AM EDT) WBC 4.5 3.8 - 10.8 10E3/uL 10/28/2024 5:09 AM EDT [facility] RBC 2.39(L) 4.20 - 5.80 10E6/uL 10/28/2024 5:09 AM EDT [facility] Hemoglobin 7.3(L) 13.2 - 17.1 g/dL 10/28/2024 5:09 AM EDT [facility] Hematocrit 21.0(L) 38.5 - 50.0 % 10/28/2024 5:09 AM EDT [facility] MCV 87.8 80.0 - 100.0 fL 10/28/2024 5:09 AM EDT [facility] MCH 30.5 27.0 - 33.0 pg 10/28/2024 5:09 AM EDT [facility] MCHC 34.7 32.0 - 36.0 g/dL 10/28/2024 5:09 AM EDT [facility] RDW 18.7(H) 11.0 - 15.0 % 10/28/2024 5:09 AM EDT [facility] Platelets 38(L) 140 - 400 10E3/uL 10/28/2024 5:09 AM EDT [facility] Comment: CNV Specimen checked for clots. None detected. MPV 7.6 7.5 - 11.5 fL 10/28/2024 5:09 AM EDT [facility] Whole Blood 10/28/2024 4:13 AM EDT 10/28/2024 4:41 AM EDT Kemar Sahni MD LAB BLOOD ORDERABLES Final Result [facility] [address] * (ABNORMAL) POC Glucose Monitoring Device (10/28/2024 4:04 AM EDT) POC Glucose Monitoring Device 103(H) 70 - 100 mg/dL 10/28/2024 4:05 AM EDT [facility] Blood 10/28/2024 4:04 AM EDT 10/28/2024 4:05 AM EDT Harvey Domínguez III, MD POINT OF CARE TEST ORDERABLES Final Result [facility] [address] * (ABNORMAL) POC Glucose Monitoring Device (10/28/2024 3:00 AM EDT) POC Glucose Monitoring Device 106(H) 70 - 100 mg/dL 10/28/2024 3:01 AM EDT [facility] Blood 10/28/2024 3:00 AM EDT 10/28/2024 3:01 AM EDT Harvey Domínguez III, MD POINT OF CARE TEST ORDERABLES Final Result [facility] [address] [place] [facility]. [address] * (ABNORMAL) POC Glucose Monitoring Device (10/28/2024 2:32 AM EDT) POC Glucose Monitoring Device 109(H) 70 - 100 mg/dL 10/28/2024 2:33 AM EDT [facility] Blood 10/28/2024 2:32 AM EDT 10/28/2024 2:33 AM EDT us Harvey Domínguez III, MD POINT OF CARE TEST ORDERABLES Final Result Performing Organization Address City/[facility] Co de Phone Number [facility] [address] [facility]. [address] * (ABNORMAL) POC Glucose Monitoring Device (10/28/2024 2:14 AM EDT) POC Glucose Monitoring Device 115(H) 70 - 100 mg/dL 10/28/2024 2:15 AM EDT [facility] Blood 10/28/2024 2:14 AM EDT 10/28/2024 2:15 AM EDT us Harvey Domínguez III, MD POINT OF CARE TEST ORDERABLES Final Result Performing Organization Address City/[facility]/ZIP Co de Phone Number [facility] [address] [facility]. [address] * (ABNORMAL) POC Glucose Monitoring Device (10/28/2024 2:03 AM EDT) POC Glucose Monitoring Device 101(H) 70 - 100 mg/dL 10/28/2024 2:04 AM EDT [facility] Blood 10/28/2024 2:03 AM EDT 10/28/2024 2:04 AM EDT us Harvey Domínguez III, MD POINT OF CARE TEST ORDERABLES Final Result [facility] [address] [place] [address], [facility] * Transfuse RBC Transfusion Rate: Per dept routine (10/28/2024 1:51 AM EDT) John Moreno MD NURSING TREATMENT ORDERABLES - BLOOD ADMIN Final Result Performing Organization Address City/[facility]/ZIP Co de Phone Number EXTERNAL * Transfuse RBC Transfusion Rate: Per dept routine, 1 Units (10/28/2024 1:51 AM EDT) John Moreno MD NURSING TREATMENT ORDERABLES - BLOOD ADMIN Final Result Performing Organization Address City/[facility] Co de Phone Number EXTERNAL * (ABNORMAL) TEG-Bypass/ECMO/Liver HN (Factor function, Platelet/Fibrin Clot Strength w/Clot Breakdown, Heparinase In All Channels) (10/28/2024 12:05 AM EDT) [facility] Signature Citrated Kaolin Reaction Time (TEGECMOLIVER) 7.5 4.6 - 9.1 minutes 10/28/2024 1:22 AM EDT [facility] Citrated Kaolin W/Heparinase Reaction Time (TEGECMOLIVER) 7.7 4.3 - 8.3 minutes 10/28/2024 1:22 AM EDT [facility] Citrated Kaolin Maximum Amplitude (TEGECMOLIVER) 54.4 52.0 - 69.0 mm 10/28/2024 1:22 AM EDT [facility] Citrated Functional Fibrinogen W/Heparinase Maximum Amplitude(TEGEC MOLIVER) 20.4 15.0 - 34.0 mm 10/28/2024 1:22 AM EDT [facility] Citrated Rapid Teg W/Heparinase Maximum Amplitude (TEGECMOLIVER) 51.0(L) 53.0 - 69.0 mm 10/28/2024 1:22 AM EDT [facility] Citrated Kaolin w/Heparinase Percent Lysis (TEGECMOLIVER) 0.0 0.0 - 3.2 % 10/28/2024 1:22 AM EDT [facility] Whole Blood (Citrate) 10/28/2024 12:05 AM EDT 10/28/2024 12:09 AM EDT Kemar Sahni MD LAB BLOOD ORDERABLES Final Result [facility] [address] * Magnesium (10/28/2024 12:05 AM EDT) Magnesium 2.2 1.5 - 2.5 mg/dL 10/28/2024 1:59 AM EDT [facility] Plasma 10/28/2024 12:0 5 AM EDT 10/28/2024 12:11 AM EDT Kemar Sahni MD LAB BLOOD ORDERABLES Final Result Performing Organization Address [facility] de Phone Number [facility] [address] * (ABNORMAL) Renal Function Panel w/EGFR (10/28/2024 12:05 AM EDT) Sodium 144 133 - 146 mmol/L 10/28/2024 1:59 AM EDT [facility] Potassium 3.4(L) 3.5 - 5.3 mmol/L 10/28/2024 1:59 AM EDT [facility] Chloride 112(H) 98 - 110 mmol/L 10/28/2024 1:59 AM EDT [facility] CO2 19(L) 21 - 33 mmol/L 10/28/2024 1:59 AM EDT [facility] Anion Gap 13 3 - 16 mmol/L 10/28/2024 1:59 AM EDT [facility] BUN 59(H) 7 - 25 mg/dL 10/28/2024 1:59 AM EDT [facility] Creatinine 2.42(H) 0.60 - 1.30 mg/dL 10/28/2024 1:59 AM EDT [facility] Glucose 118(H) 70 - 100 mg/dL 10/28/2024 1:59 AM EDT [facility] Calcium 9.0 8.6 - 10.3 mg/dL 10/28/2024 1:59 AM EDT [facility] Phosphorus 5.3(H) 2.1 - 4.7 mg/dL 10/28/2024 1:59 AM EDT [facility] Albumin 3.1(L) 3.5 - 5.7 g/dL 10/28/2024 1:59 AM EDT [facility] Osmolality, Calculated 316(H) 278 - 305 mOsm/kg 10/28/2024 1:59 AM EDT [facility] EGFR 34 10/28/2024 1:59 AM EDT [facility] Comment:As of 2021, the [...] Sahni MD LAB BLOOD ORDERABLES Final Result [facility] [address] * (ABNORMAL) Differential (10/28/2024 12:05 AM EDT) Neutrophils Relative 88.6(H) 40.0 - 80.0 % 10/28/2024 12:41 AM EDT [facility] Lymphocytes Relative 2.5(L) 15.0 - 45.0 % 10/28/2024 12:41 AM EDT [facility] Monocytes Relative 6.1 0.0 - 12.0 % 10/28/2024 12:41 AM EDT [facility] Eosinophils Relative 2.4 0.0 - 8.0 % 10/28/2024 12:41 AM EDT [facility] Basophils Relative 0.4 0.0 - 1.0 % 10/28/2024 12:41 AM EDT [facility] nRBC 0 0 - 0 /100 WBC 10/28/2024 12:41 AM EDT [facility] Neutrophils Absolute 4,341 1,520 - 8,640 /uL 10/28/2024 12:41 AM EDT [facility] Lymphocytes Absolute 123(L) 570 - 4,860 /uL 10/28/2024 12:41 AM EDT [facility] Monocytes Absolute 299 0 - 1,296 /uL 10/28/2024 12:41 AM EDT [facility] Eosinophils Absolute 118 0 - 864 /uL 10/28/2024 12:41 AM EDT [facility] Basophils Absolute 20 0 - 108 /uL 10/28/2024 12:41 AM EDT [facility] Whole Blood 10/28/2024 12:0 5 AM EDT 10/28/2024 12:11 AM EDT Kemar Sahni MD LAB BLOOD ORDERABLES Final Result [facility] [address] * (ABNORMAL) CBC (10/28/2024 12:05 AM EDT) WBC 4.9 3.8 - 10.8 10E3/uL 10/28/2024 12:41 AM EDT [facility] RBC 2.18(L) 4.20 - 5.80 10E6/uL 10/28/2024 12:41 AM EDT [facility] Hemoglobin 6.7(L) 13.2 - 17.1 g/dL 10/28/2024 12:41 AM EDT [facility] Hematocrit 19.2(L) 38.5 - 50.0 % 10/28/2024 12:41 AM EDT [facility] MCV 87.8 80.0 - 100.0 fL 10/28/2024 12:41 AM EDT [facility] MCH 30.6 27.0 - 33.0 pg 10/28/2024 12:41 AM EDT [facility] MCHC 34.8 32.0 - 36.0 g/dL 10/28/2024 12:41 AM EDT [facility] RDW 19.6(H) 11.0 - 15.0 % 10/28/2024 12:41 AM EDT [facility] Platelets 45(L) 140 - 400 10E3/uL 10/28/2024 12:41 AM EDT [facility] Comment: CNV Specimen checked for clots. None detected. MPV 7.8 7.5 - 11.5 fL 10/28/2024 12:41 AM EDT [facility] Whole Blood 10/28/2024 12:0 5 AM EDT 10/28/2024 12:11 AM EDT Kemar Sahni MD LAB BLOOD ORDERABLES Final Result Performing Organization Address City/[facility]/ZIP Co de Phone Number [facility] [address] * (ABNORMAL) POC Glucose Monitoring Device (10/28/2024 12:03 AM EDT) POC Glucose Monitoring Device 122(H) 70 - 100 mg/dL 10/28/2024 12:04 AM EDT [facility] Blood 10/28/2024 12:0 3 AM EDT 10/28/2024 12:04 AM EDT us Harvey Domínguez III, MD POINT OF CARE TEST ORDERABLES Final Result [facility] [address] * (ABNORMAL) POC Glucose Monitoring Device (10/27/2024 10:03 PM EDT) POC Glucose Monitoring Device 127(H) 70 - 100 mg/dL 10/27/2024 10:03 PM EDT [facility] Blood 10/27/2024 10:0 3 PM EDT 10/27/2024 10:03 PM EDT us Harvey Domínguez III, MD POINT OF CARE TEST ORDERABLES Final Result [facility] [address] [facility]. [address] * (ABNORMAL) POC Glucose Monitoring Device (10/27/2024 8:06 PM EDT) POC Glucose Monitoring Device 128(H) 70 - 100 mg/dL 10/27/2024 8:45 PM EDT [facility] Blood 10/27/2024 8:06 PM EDT 10/27/2024 8:45 PM EDT us Harvey Domínguez III, MD POINT OF CARE TEST ORDERABLES Final Result Performing Organization Address City/[facility]/ZIP Co de Phone Number [facility] [address] [facility]. [address] * (ABNORMAL) POC Glucose Monitoring Device (10/27/2024 6:00 PM EDT) POC Glucose Monitoring Device 128(H) 70 - 100 mg/dL 10/27/2024 6:00 PM EDT [facility] Blood 10/27/2024 6:00 PM EDT 10/27/2024 6:00 PM EDT us aHrvey Domínguez III, MD POINT OF CARE TEST ORDERABLES Final Result [facility] [address] [facility] * Lactic Acid, STAT (10/27/2024 5:41 PM EDT) Lactate 0.5 0.5 - 2.2 mmol/L 10/27/2024 6:28 PM EDT [facility] Plasma 10/27/2024 5:41 PM EDT 10/27/2024 5:49 PM EDT Narrative [facility] - 10/27/2024 6:28 PM EDT Redraw John Moreno MD LAB BLOOD ORDERABLES Final R esult Performing Organization Address City/[facility]/ZIP Co de Phone Number [facility] [address] [facility]. [address] * (ABNORMAL) Hepatic Function Panel, STAT (10/27/2024 5:13 PM EDT) Total Bilirubin 1.7(H) 0.0 - 1.5 mg/dL 10/27/2024 5:50 PM EDT [facility] Bilirubin, Direct 1.17(H) 0.00 - 0.40 mg/dL 10/27/2024 5:50 PM EDT [facility] AST 60(H) 13 - 39 U/L 10/27/2024 5:50 PM EDT [facility] ALT 134(H) 7 - 52 U/L 10/27/2024 5:50 PM EDT [facility] Alkaline Phosphatase 27(L) 36 - 125 U/L 10/27/2024 5:50 PM EDT [facility] Total Protein 4.1(L) 6.4 - 8.9 g/dL 10/27/2024 5:50 PM EDT [facility] Albumin 2.9(L) 3.5 - 5.7 g/dL 10/27/2024 5:50 PM EDT [facility] Bilirubin, Indirect 0.53 0.00 - 1.10 mg/dL 10/27/2024 5:50 PM EDT [facility] Plasma 10/27/2024 5:13 PM EDT 10/27/2024 5:23 PM EDT Shay Plata MD LAB BLOOD ORDERABLES Final Result Performing Organization Address City/[facility]/ZIP Co de Phone Number [facility] [address] [facility] * (ABNORMAL) TEG-Bypass/ECMO/Liver HN (Factor function, Platelet/Fibrin Clot Strength w/Clot Breakdown, Heparinase In All Channels) (10/27/2024 5:13 PM EDT) Citrated Kaolin Reaction Time (TEGECMOLIVER) 8.0 4.6 - 9.1 minutes 10/27/2024 6:56 PM EDT [facility] Citrated Kaolin W/Heparinase Reaction Time (TEGECMOLIVER) 6.8 4.3 - 8.3 minutes 10/27/2024 6:56 PM EDT [facility] Citrated Kaolin Maximum Amplitude (TEGECMOLIVER) 55.4 52.0 - 69.0 mm 10/27/2024 6:56 PM EDT [facility] Citrated Functional Fibrinogen W/Heparinase Maximum Amplitude(TEGEC MOLIVER) 22.9 15.0 - 34.0 mm 10/27/2024 6:56 PM EDT [facility] Citrated Rapid Teg W/Heparinase Maximum Amplitude (TEGECMOLIVER) 50.8(L) 53.0 - 69.0 mm 10/27/2024 6:56 PM EDT [facility] Citrated Kaolin w/Heparinase Percent Lysis (TEGECMOLIVER) 0.1 0.0 - 3.2 % 10/27/2024 6:56 PM EDT [facility] Whole Blood (Citrate) 10/27/2024 5:13 PM EDT 10/27/2024 5:20 PM EDT us Kemar Sahni MD LAB BLOOD ORDERABLES Final Result [facility] [address] * (ABNORMAL) Protime-INR (10/27/2024 5:13 PM EDT) Protime 15.2(H) 12.1 - 15.1 seconds 10/27/2024 5:40 PM EDT [facility] INR 1.1 0.9 - 1.1 10/27/2024 5:40 PM EDT [facility] Comment: RECOMMENDED THERAPEUTIC RANGES USING INR : Stable oral anticoagulant therapy: 2.0 - 3.0 Mechanical prosthetic heart valve: 2.5 - 3.5 Recurrent acute myocardial infarction: 2.5 - 3.5 Plasma 10/27/2024 5:13 PM EDT 10/27/2024 5:23 PM EDT Kemar Sahni MD LAB BLOOD ORDERABLES Final Result Performing Organization Address City/[facility]/ZIP Co de Phone Number [facility] [address] [facility] * Magnesium (10/27/2024 5:13 PM EDT) Magnesium 2.4 1.5 - 2.5 mg/dL 10/27/2024 5:53 PM EDT [facility] Plasma 10/27/2024 5:13 PM EDT 10/27/2024 5:23 PM EDT Kemar Sahni MD LAB BLOOD ORDERABLES Final Result Performing Organization Address [facility] Co de Phone Number [facility] [address] * (ABNORMAL) Hepatic Function Panel (10/27/2024 5:13 PM EDT) Total Bilirubin 1.7(H) 0.0 - 1.5 mg/dL 10/27/2024 5:53 PM EDT [facility] Bilirubin, Direct 1.10(H) 0.00 - 0.40 mg/dL 10/27/2024 5:53 PM EDT [facility] AST 62(H) 13 - 39 U/L 10/27/2024 5:53 PM EDT [facility] ALT 134(H) 7 - 52 U/L 10/27/2024 5:53 PM EDT [facility] Alkaline Phosphatase 27(L) 36 - 125 U/L 10/27/2024 5:53 PM EDT [facility] Total Protein 4.1(L) 6.4 - 8.9 g/dL 10/27/2024 5:53 PM EDT [facility] Albumin 2.9(L) 3.5 - 5.7 g/dL 10/27/2024 5:53 PM EDT [facility] Bilirubin, Indirect 0.60 0.00 - 1.10 mg/dL 10/27/2024 5:53 PM EDT [facility] Plasma 10/27/2024 5:13 PM EDT 10/27/2024 5:23 PM EDT Kemar Sahni MD LAB BLOOD ORDERABLES Final Result [facility] [address] [place] [address], [facility] * (ABNORMAL) Renal Function Panel w/EGFR (10/27/2024 5:13 PM EDT) Sodium 142 133 - 146 mmol/L 10/27/2024 5:53 PM EDT [facility] Potassium 3.4(L) 3.5 - 5.3 mmol/L 10/27/2024 5:53 PM EDT [facility] Chloride 109 98 - 110 mmol/L 10/27/2024 5:53 PM EDT [facility] CO2 22 21 - 33 mmol/L 10/27/2024 5:53 PM EDT [facility] Anion Gap 11 3 - 16 mmol/L 10/27/2024 5:53 PM EDT [facility] BUN 61(H) 7 - 25 mg/dL 10/27/2024 5:53 PM EDT [facility] Creatinine 2.42(H) 0.60 - 1.30 mg/dL 10/27/2024 5:53 PM EDT [facility] Glucose 125(H) 70 - 100 mg/dL 10/27/2024 5:53 PM EDT [facility] Calcium 8.8 8.6 - 10.3 mg/dL 10/27/2024 5:53 PM EDT [facility] Phosphorus 5.7(H) 2.1 - 4.7 mg/dL 10/27/2024 5:53 PM EDT [facility] Albumin 2.9(L) 3.5 - 5.7 g/dL 10/27/2024 5:53 PM EDT [facility] Osmolality, Calculated 313(H) 278 - 305 mOsm/kg 10/27/2024 5:53 PM EDT [facility] EGFR 34 10/27/2024 5:53 PM EDT [facility] Comment:As of 2021, the [...] Sahni MD LAB BLOOD ORDERABLES Final Result [facility] [address] * (ABNORMAL) CBC (10/27/2024 5:13 PM EDT) WBC 4.9 3.8 - 10.8 10E3/uL 10/27/2024 6:14 PM EDT [facility] RBC 2.44(L) 4.20 - 5.80 10E6/uL 10/27/2024 6:14 PM EDT [facility] Hemoglobin 7.4(L) 13.2 - 17.1 g/dL 10/27/2024 6:14 PM EDT [facility] Hematocrit 21.4(L) 38.5 - 50.0 % 10/27/2024 6:14 PM EDT [facility] MCV 87.6 80.0 - 100.0 fL 10/27/2024 6:14 PM EDT [facility] MCH 30.3 27.0 - 33.0 pg 10/27/2024 6:14 PM EDT [facility] MCHC 34.6 32.0 - 36.0 g/dL 10/27/2024 6:14 PM EDT [facility] RDW 19.6(H) 11.0 - 15.0 % 10/27/2024 6:14 PM EDT [facility] Platelets 47(L) 140 - 400 10E3/uL 10/27/2024 6:14 PM EDT [facility] Comment: CNV Specimen checked for clots. None detected. MPV 8.1 7.5 - 11.5 fL 10/27/2024 6:14 PM EDT [facility] Whole Blood 10/27/2024 5:13 PM EDT 10/27/2024 5:23 PM EDT Kemar Sahni MD LAB BLOOD ORDERABLES Final Result Performing Organization Address City/[facility]/ZIP Co de Phone Number [facility] [address] * (ABNORMAL) POC Glucose Monitoring Device (10/27/2024 3:57 PM EDT) [facility] POC Glucose Monitoring Device 131(H) 70 - 100 mg/dL 10/27/2024 3:58 PM EDT [facility] Blood 10/27/2024 3:57 PM EDT 10/27/2024 3:58 PM EDT Harvey Domínguez III, MD POINT OF CARE TEST ORDERABLES Final Result [facility] [address] * (ABNORMAL) CBC, STAT (10/27/2024 2:40 PM EDT) Pathologist [facility] WBC 5.8 3.8 - 10.8 10E3/uL 10/27/2024 2:54 PM EDT [facility] RBC 2.43(L) 4.20 - 5.80 10E6/uL 10/27/2024 2:54 PM EDT [facility] Hemoglobin 7.5(L) 13.2 - 17.1 g/dL 10/27/2024 2:54 PM EDT [facility] Hematocrit 21.5(L) 38.5 - 50.0 % 10/27/2024 2:54 PM EDT [facility] MCV 88.2 80.0 - 100.0 fL 10/27/2024 2:54 PM EDT [facility] MCH 30.7 27.0 - 33.0 pg 10/27/2024 2:54 PM EDT [facility] MCHC 34.8 32.0 - 36.0 g/dL 10/27/2024 2:54 PM EDT [facility] RDW 19.1(H) 11.0 - 15.0 % 10/27/2024 2:54 PM EDT [facility] Platelets 50(L) 140 - 400 10E3/uL 10/27/2024 2:54 PM EDT [facility] MPV 7.5 7.5 - 11.5 fL 10/27/2024 2:54 PM EDT [facility] Whole Blood 10/27/2024 2:40 PM EDT 10/27/2024 2:44 PM EDT us John Moreno MD LAB BLOOD ORDERABLES Final R esult [facility] [address] [place] [address], [facility] * (ABNORMAL) Blood Gas, Arterial, STAT (10/27/2024 2:40 PM EDT) O2 Sat, Arterial 98 10/27/2024 2:46 PM EDT [facility] FIO2 RA 10/27/2024 2:46 PM EDT [facility] pH, Arterial 7.37 7.35 - 7.45 10/27/2024 2:46 PM EDT [facility] pCO2, Arterial 35 35 - 45 mm Hg 10/27/2024 2:46 PM EDT [facility] pO2, Arterial 92 80 - 100 mm Hg 10/27/2024 2:46 PM EDT [facility] HCO3, Arterial 21(L) 22 - 26 mmol/L 10/27/2024 2:46 PM EDT [facility] CO2 Content,Arteri al 21(L) 23 - 27 mmol/L 10/27/2024 2:46 PM EDT [facility] Base Excess, Arterial -4.6(L) -2.0 - 3.0 mmol/L 10/27/2024 2:46 PM EDT [facility] %HBO2, Arterial 95.4 95.0 - 98.0 % 10/27/2024 2:46 PM EDT [facility] Carboxyhemoglo bin, Arterial 1.6 % 10/27/2024 2:46 PM EDT [facility] Comment: CARBOXYHEMOGLOBIN (CO) REFERENCE RANGES: Non-Smokers: <2 % Smokers: <8 % TOXIC: >20 % Methemoglobin, Arterial 1.0 0.0 - 1.5 % 10/27/2024 2:46 PM EDT [facility] Reduced hemoglobin, Arterial 2.1 0.0 - 5.0 % 10/27/2024 2:46 PM EDT [facility] Blood, Arterial 10/27/2024 2 :40 PM EDT 10/27/2024 2:44 PM EDT Narrative [facility] - 10/27/2024 2:46 PM EDT Post extubation us John Moreno MD LAB BLOOD ORDERABLES Final R esult Performing Organization Address City/[facility]/ZIP Co de Phone Number [facility] [address] * (ABNORMAL) POC Glucose Monitoring Device (10/27/2024 2:06 PM EDT) [facility] POC Glucose Monitoring Device 134(H) 70 - 100 mg/dL 10/27/2024 2:06 PM EDT [facility] Blood 10/27/2024 2:06 PM EDT 10/27/2024 2:06 PM EDT Harvey Domínguez III, MD POINT OF CARE TEST ORDERABLES Final Result Performing Organization Address City/[facility]/ZIP Co de Phone Number [facility] [address] * (ABNORMAL) Blood gas, arterial (10/27/2024 12:35 PM EDT) O2 Sat, Arterial 99 10/27/2024 12:46 PM EDT [facility] FIO2 SBT 30% 10/27/2024 12:46 PM EDT [facility] pH, Arterial 7.35 7.35 - 7.45 10/27/2024 12:46 PM EDT [facility] pCO2, Arterial 37 35 - 45 mm Hg 10/27/2024 12:46 PM EDT [facility] pO2, Arterial 182(H) 80 - 100 mm Hg 10/27/2024 12:46 PM EDT [facility] HCO3, Arterial 21(L) 22 - 26 mmol/L 10/27/2024 12:46 PM EDT [facility] CO2 Content,Arteri al 22(L) 23 - 27 mmol/L 10/27/2024 12:46 PM EDT [facility] Base Excess, Arterial -4.8(L) -2.0 - 3.0 mmol/L 10/27/2024 12:46 PM EDT [facility] %HBO2, Arterial 96.3 95.0 - 98.0 % 10/27/2024 12:46 PM EDT [facility] Carboxyhemoglo bin, Arterial 1.7 % 10/27/2024 12:46 PM EDT [facility] Comment: CARBOXYHEMOGLOBIN (CO) REFERENCE RANGES: Non-Smokers: <2 % Smokers: <8 % TOXIC: >20 % Methemoglobin, Arterial 1.4 0.0 - 1.5 % 10/27/2024 12:46 PM EDT [facility] Reduced hemoglobin, Arterial 0.6 0.0 - 5.0 % 10/27/2024 12:46 PM EDT [facility] Blood, Arterial 10/27/2024 1 2:35 PM EDT 10/27/2024 12:42 PM EDT Narrative [facility] - 10/27/2024 12:46 PM EDT Please obtain post SBT us Shay Sifuentes MD LAB BLOOD ORDERABLES Final Resu lt [facility] [address] * (ABNORMAL) TEG-Bypass/ECMO/Liver HN (Factor function, Platelet/Fibrin Clot Strength w/Clot Breakdown, Heparinase In All Channels) (10/27/2024 12:07 PM EDT) Citrated Kaolin Reaction Time (TEGECMOLIVER) 7.9 4.6 - 9.1 minutes 10/27/2024 1:24 PM EDT [facility] Citrated Kaolin W/Heparinase Reaction Time (TEGECMOLIVER) 8.3 4.3 - 8.3 minutes 10/27/2024 1:24 PM EDT [facility] Citrated Kaolin Maximum Amplitude (TEGECMOLIVER) 52.0 52.0 - 69.0 mm 10/27/2024 1:24 PM EDT [facility] Citrated Functional Fibrinogen W/Heparinase Maximum Amplitude(TEGEC MOLIVER) 20.1 15.0 - 34.0 mm 10/27/2024 1:24 PM EDT [facility] Citrated Rapid Teg W/Heparinase Maximum Amplitude (TEGECMOLIVER) 49.4(L) 53.0 - 69.0 mm 10/27/2024 1:24 PM EDT [facility] Citrated Kaolin w/Heparinase Percent Lysis (TEGECMOLIVER) 0.0 0.0 - 3.2 % 10/27/2024 1:24 PM EDT [facility] Whole Blood (Citrate) 10/27/2024 12:07 PM EDT 10/27/2024 12:09 PM EDT us Kemar Sahni MD LAB BLOOD ORDERABLES Final Result [facility] [address] * (ABNORMAL) POC Glucose Monitoring Device (10/27/2024 12:01 PM EDT) POC Glucose Monitoring Device 121(H) 70 - 100 mg/dL 10/27/2024 12:02 PM EDT [facility] Blood 10/27/2024 12:0 1 PM EDT 10/27/2024 12:01 PM EDT Harvey Domínguez III, MD POINT OF CARE TEST ORDERABLES Final Result Performing Organization Address [facility] Co de Phone Number [facility] [address] * (ABNORMAL) POC Glucose Monitoring Device (10/27/2024 10:59 AM EDT) POC Glucose Monitoring Device 126(H) 70 - 100 mg/dL 10/27/2024 11:10 AM EDT [facility] Blood 10/27/2024 10:5 9 AM EDT 10/27/2024 11:10 AM EDT Harvey Domínguez III, MD POINT OF CARE TEST ORDERABLES Final Result Performing Organization Address [facility] de Phone Number [facility] [address] * ECG 12 lead (MUSE) (10/27/2024 10:17 AM EDT) 10/27/2024 10:1 7 AM EDT Narrative MUSE - 10/27/2024 2:51 PM EDT Ventricular Rate: 91 BPM Atrial Rate: 91 BPM P-R Interval: 168 ms QRS Duration: 90 ms QT: 274 ms QTc: 337 ms P [place]: 60 degrees R [place]: -30 degrees T [place]: -15 degrees Diagnosis Line: NORMAL SINUS RHYTHM ^ LEFT AXIS DEVIATION, LEFT ANTERIOR HEMIBLOCK ^ NONSPECIFIC T WAVE CHANGE ^ ABNORMAL ECG ^ ^ Confirmed by MD ROLLY, [facility] ([id number]) on 10/27/2024 2:51:52 PM us Shay Sifuentes MD ECG ORDERABLES Final Result Performing Organization Address [facility] Co de Phone Number MUSE * (ABNORMAL) POC Glucose Monitoring Device (10/27/2024 10:00 AM EDT) POC Glucose Monitoring Device 121(H) 70 - 100 mg/dL 10/27/2024 10:01 AM EDT [facility] Blood 10/27/2024 10:0 0 AM EDT 10/27/2024 10:01 AM EDT Harvey Domínguez III, MD POINT OF CARE TEST ORDERABLES Final Result Performing Organization Address City/State/[facility] Co de Phone Number [facility] [address] [place] [address], [facility] * US Renal Transplant (10/27/2024 9:51 [...] US ORDERABLES Final Result * US Duplex [id number] Comp (10/27/2024 9:51 AM EDT) Anatomical Region [...] EXAM: US ABDOMEN LIMITED EXAM: US DUPLEX [id number] COMPLETE INDICATION: Post-op liver transplant COMPARISON: None [...] absent.. Pancreas: Obscured by overlying bowel gas. [place] right kidney: 12.5 cm in length. Normal [...] EXAM: US ABDOMEN LIMITED EXAM: US DUPLEX [id number] COMPLETE INDICATION: Post-op liver transplant COMPARISON: None [...] absent.. Pancreas: Obscured by overlying bowel gas. [place] right kidney: 12.5 cm in length. Normal [...] EXAM: US ABDOMEN LIMITED EXAM: US DUPLEX [id number] COMPLETE INDICATION: Post-op liver transplant COMPARISON: None [...] absent.. Pancreas: Obscured by overlying bowel gas. [place] right kidney: 12.5 cm in length. Normal [...] 0.84. Left hepatic artery: 0.74-0.77 Procedure Note Rodriguez, Ronald, MD - 10/27/2024 EXAM: US ABDOMEN LIMITED EXAM: US DUPLEX [id number] COMPLETE INDICATION: Post-op liver transplant COMPARISON: None [...] absent.. Pancreas: Obscured by overlying bowel gas. [place] right kidney: 12.5 cm in length. Normal [...] Rodriguez MD at 10/27/2024 10:38 AM EDT Sveta Judge MD IM US ORDERABLES Final Result * CARISA Rhythm Strip - Scan (10/27/2024 9:25 AM EDT) us Scanning Uchhim SCAN DOCS - NO RESULTS Final Res ult * (ABNORMAL) POC Glucose Monitoring Device (10/27/2024 9:05 AM EDT) POC Glucose Monitoring Device 118(H) 70 - 100 mg/dL 10/27/2024 9:06 AM EDT [facility] Blood 10/27/2024 9:05 AM EDT 10/27/2024 9:06 AM EDT Harvey Domínguez III, MD POINT OF CARE TEST ORDERABLES Final Result [facility] [address] [place] [address], [facility] * X-ray Portable Chest (10/27/2024 8:58 [...] - 15.1 seconds 10/27/2024 8:35 AM EDT [facility] INR 1.2(H) 0.9 - 1.1 10/27/2024 8:35 AM EDT [facility] Comment: RECOMMENDED THERAPEUTIC RANGES USING INR : Stable oral anticoagulant therapy: 2.0 - 3.0 Mechanical prosthetic heart valve: 2.5 - 3.5 Recurrent acute myocardial infarction: 2.5 - 3.5 Plasma 10/27/2024 8:16 AM EDT 10/27/2024 8:20 AM EDT us John Moreno MD LAB BLOOD ORDERABLES Final R esult [facility] [address] [place], [place] [id number] * Magnesium (10/27/2024 8:00 AM EDT) Magnesium 1.8 1.5 - 2.5 mg/dL 10/27/2024 10:50 AM EDT [facility] Plasma 10/27/2024 8:00 AM EDT 10/27/2024 10:31 AM EDT Kemar Sahni MD LAB BLOOD ORDERABLES Final Result [facility] [address] [address], [facility] * (ABNORMAL) Renal Function Panel w/EGFR (10/27/2024 8:00 AM EDT) Sodium 142 133 - 146 mmol/L 10/27/2024 10:18 AM EDT [facility] Potassium 3.0(L) 3.5 - 5.3 mmol/L 10/27/2024 10:18 AM EDT [facility] Chloride 109 98 - 110 mmol/L 10/27/2024 10:18 AM EDT [facility] CO2 21 21 - 33 mmol/L 10/27/2024 10:18 AM EDT [facility] Anion Gap 12 3 - 16 mmol/L 10/27/2024 10:18 AM EDT [facility] BUN 59(H) 7 - 25 mg/dL 10/27/2024 10:18 AM EDT [facility] Creatinine 2.54(H) 0.60 - 1.30 mg/dL 10/27/2024 10:18 AM EDT [facility] Glucose 111(H) 70 - 100 mg/dL 10/27/2024 10:18 AM EDT [facility] Calcium 9.1 8.6 - 10.3 mg/dL 10/27/2024 10:18 AM EDT [facility] Phosphorus 5.5(H) 2.1 - 4.7 mg/dL 10/27/2024 10:18 AM EDT [facility] Albumin 3.0(L) 3.5 - 5.7 g/dL 10/27/2024 10:18 AM EDT [facility] Osmolality, Calculated 311(H) 278 - 305 mOsm/kg 10/27/2024 10:18 AM EDT [facility] EGFR 32 10/27/2024 10:18 AM EDT [facility] Comment:As of 2021, the [...] City/State/[facility] Co de Phone Number [facility] [address] * (ABNORMAL) Hepatic Function Panel, STAT (10/27/2024 8:00 AM EDT) Total Bilirubin 1.3 0.0 - 1.5 mg/dL 10/27/2024 8:51 AM EDT [facility] Bilirubin, Direct 0.93(H) 0.00 - 0.40 mg/dL 10/27/2024 8:51 AM EDT [facility] AST 88(H) 13 - 39 U/L 10/27/2024 8:51 AM EDT [facility] ALT 149(H) 7 - 52 U/L 10/27/2024 8:51 AM EDT [facility] Alkaline Phosphatase 26(L) 36 - 125 U/L 10/27/2024 8:51 AM EDT [facility] Total Protein 4.0(L) 6.4 - 8.9 g/dL 10/27/2024 8:51 AM EDT [facility] Albumin 3.0(L) 3.5 - 5.7 g/dL 10/27/2024 8:51 AM EDT [facility] Bilirubin, Indirect 0.37 0.00 - 1.10 mg/dL 10/27/2024 8:51 AM EDT [facility] Plasma 10/27/2024 8:00 AM EDT 10/27/2024 8:20 AM EDT Harvey Domínguez III, MD LAB BLOOD ORDERABLE S Final Result Performing Organization Address [facility] Co de Phone Number [facility] [address] [facility] * (ABNORMAL) Lactic Acid, STAT (10/27/2024 8:00 AM EDT) Lactate 0.4(L) 0.5 - 2.2 mmol/L 10/27/2024 8:43 AM EDT [facility] Plasma 10/27/2024 8:00 AM EDT 10/27/2024 8:20 AM EDT Harvey Domínguez III, MD LAB BLOOD ORDERABLE S Final Result Performing Organization Address [facility] de Phone Number [facility] [address] * (ABNORMAL) Blood Gas, Arterial, STAT (10/27/2024 8:00 AM EDT) O2 Sat, Arterial 100 10/27/2024 8:23 AM EDT [facility] pH, Arterial 7.36 7.35 - 7.45 10/27/2024 8:23 AM EDT [facility] pCO2, Arterial 37 35 - 45 mm Hg 10/27/2024 8:23 AM EDT [facility] pO2, Arterial 245(H) 80 - 100 mm Hg 10/27/2024 8:23 AM EDT [facility] HCO3, Arterial 22 22 - 26 mmol/L 10/27/2024 8:23 AM EDT [facility] CO2 Content,Arteri al 22(L) 23 - 27 mmol/L 10/27/2024 8:23 AM EDT [facility] Base Excess, Arterial -4.2(L) -2.0 - 3.0 mmol/L 10/27/2024 8:23 AM EDT [facility] %HBO2, Arterial 96.5 95.0 - 98.0 % 10/27/2024 8:23 AM EDT [facility] Carboxyhemoglo bin, Arterial 2.2 % 10/27/2024 8:23 AM EDT [facility] Comment: CARBOXYHEMOGLOBIN (CO) REFERENCE RANGES: Non-Smokers: <2 % Smokers: <8 % TOXIC: >20 % Methemoglobin, Arterial 1.2 0.0 - 1.5 % 10/27/2024 8:23 AM EDT [facility] Reduced hemoglobin, Arterial 0.0 0.0 - 5.0 % 10/27/2024 8:23 AM EDT [facility] Blood, Arterial 10/27/2024 8 :00 AM EDT 10/27/2024 8:19 AM EDT Narrative [facility] - 10/27/2024 8:23 AM EDT Specimen is beyond 15 minutes from time of collection. Results may be compromised. Review results critically. us Kemar Sahni MD LAB BLOOD ORDERABLES Final Result [facility] [address] [id number], [facility] * (ABNORMAL) TEG-Bypass/ECMO/Liver HN (Factor function, Platelet/Fibrin Clot Strength w/Clot Breakdown, Heparinase In All Channels) (10/27/2024 8:00 AM EDT) Citrated Kaolin Reaction Time (TEGECMOLIVER) 7.8 4.6 - 9.1 minutes 10/27/2024 9:39 AM EDT [facility] Citrated Kaolin W/Heparinase Reaction Time (TEGECMOLIVER) 8.0 4.3 - 8.3 minutes 10/27/2024 9:39 AM EDT [facility] Citrated Kaolin Maximum Amplitude (TEGECMOLIVER) 52.7 52.0 - 69.0 mm 10/27/2024 9:39 AM EDT [facility] Citrated Functional Fibrinogen W/Heparinase Maximum Amplitude(TEGEC MOLIVER) 19.0 15.0 - 34.0 mm 10/27/2024 9:39 AM EDT [facility] Citrated Rapid Teg W/Heparinase Maximum Amplitude (TEGECMOLIVER) 49.5(L) 53.0 - 69.0 mm 10/27/2024 9:39 AM EDT [facility] Citrated Kaolin w/Heparinase Percent Lysis (TEGECMOLIVER) 0.0 0.0 - 3.2 % 10/27/2024 9:39 AM EDT [facility] Whole Blood (Citrate) 10/27/2024 8:00 AM EDT 10/27/2024 8:19 AM EDT Kemar Sahni MD LAB BLOOD ORDERABLES Final Result Performing Organization Address [facility] Co de Phone Number [facility] [address] [place] [address] * (ABNORMAL) Katie-Watkins virus VCA IgG Antibody (10/27/2024 8:00 AM EDT) EBV VCA IgG Positive( A) Negative 10/27/2024 11:30 AM EDT [facility] Comment:Presence of detectab le VCA IgG antibodies. 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 EBV IGG NUM 314.00(H) 0.00 - 17.99 U/mL 10/27/2024 11:30 AM EDT [facility] Serum 10/27/2024 8:00 AM EDT 10/27/2024 8:20 AM EDT Kemar Sahni MD LAB BLOOD ORDERABLES Final Result Performing Organization Address City/[facility]/ZIP Co de Phone Number [facility] [address] [place] [address] * Hemoglobin A1c (10/27/2024 8:00 AM EDT) Hemoglobin A1C 5.0 4.0 - 5.6 % 10/27/2024 11:12 AM EDT [facility] Comment: Hemoglobin A1c Interpretation [...] ORDERABLES Final Result Performing Organization Address [facility] Co de Phone Number [facility] [address] * (ABNORMAL) POC Glucose Monitoring Device (10/27/2024 7:59 AM EDT) [facility] POC Glucose Monitoring Device 113(H) 70 - 100 mg/dL 10/27/2024 7:59 AM EDT [facility] Blood 10/27/2024 7:59 AM EDT 10/27/2024 7:59 AM EDT Harvey Domínguez III, MD POINT OF CARE TEST ORDERABLES Final Result Performing Organization Address [facility] Co de Phone Number [facility] [address] * X-ray Abdomen AP view (10/27/2024 7:47 [...] left chestwall. Findings communicated to Michela Szymanski, RN via [...] Units (10/27/2024 6:16 AM EDT) Product Code J9261Z19 [facility] Unit Number [id number] [facility] Dispense Status Presumed Transfused_PT [facility] Blood Expiration Date 358939898917 [facility] Coding System [id number] [facility] Product Code S8937B26 [facility] Unit Number [id number] [facility] Dispense Status Presumed Transfused_PT [facility] Blood Expiration Date 134862139764 [facility] Coding System [id number] [facility] Blood Bank Product John Pina MD BLOOD BANK PRODUCT ORDERABLES F inal Result [facility] * Prepare Platelets, leukoreduced, 1 Units (10/27/2024 6:16 AM EDT) Product Code H7339A96 [facility] Unit Number [id number] [facility] Dispense Status Presumed Transfused_PT [facility] Blood Expiration Date [id number] [facility] Coding System [id number] [facility] Blood Bank Product Eber Quinones MD BLOOD BANK PRODUCT ORDER PAL Final Result Performing Organization Address [facility] Co de Phone Number [facility] * Prepare Cryoprecipitate, 1 Units (10/27/2024 6:16 AM EDT) Product Code E0003U73 [facility] Unit Number [id number] [facility] Dispense Status Presumed Transfused_PT [facility] Blood Expiration Date [facility] Coding System [id number] [facility] Product Code G1876N15 [facility] Unit Number [id number] HCLL Dispense Status Presumed Transfused_PT HCLL Blood Expiration Date [id number] HCLL Coding System [id number] HCLL Blood Bank Product Eber Quinones MD BLOOD BANK PRODUCT ORDER PAL Final Result Performing Organization Address City/[facility]/ZIP Co de Phone Number HCLL * Prepare Fresh Frozen Plasma, 10 Units (10/27/2024 6:16 AM EDT) Product Code R2317H94 HCLL Unit Number [id number] HCLL Dispense Status Presumed Transfused_PT HCLL Blood Expiration Date HCLL Coding System [id number] HCLL Product Code W5742S55 HCLL Unit Number [id number] HCLL Dispense Status Presumed Transfused_PT HCLL Blood Expiration Date HCLL Coding System AUIB664 HCLL Product Code V3353T77 HCLL Unit Number [id number] HCLL Dispense Status Presumed Transfused_PT HCLL Blood Expiration Date HCLL Coding System EBLN349 HCLL Product Code B2719U27 HCLL Unit Number [id number] HCLL Dispense Status Presumed Transfused_PT HCLL Blood Expiration Date HCLL Coding System PMZD384 HCLL Product Code H3086D11 HCLL Unit Number [id number] HCLL Dispense Status Released from Crossmatch_RE HCLL Blood Expiration Date HCLL Coding System IMOS028 HCLL Product Code J5795E45 HCLL Unit Number [id number] HCLL Dispense Status Released from Crossmatch_RE HCLL Blood Expiration Date HCLL Coding System GZGI827 HCLL Product Code D2963X50 HCLL Unit Number [id number] HCLL Dispense Status Presumed Transfused_PT HCLL Blood Expiration Date HCLL Coding System VKEO218 HCLL Product Code S4480C76 HCLL Unit Number [id number] HCLL Dispense Status Presumed Transfused_PT HCLL Blood Expiration Date 236095783318 HCLL Coding System DMSZ495 HCLL Product Code P6000Z60 HCLL Unit Number [id number] HCLL Dispense Status Presumed Transfused_PT HCLL Blood Expiration Date HCLL Coding System QSDN407 HCLL Product Code F1202N52 HCLL Unit Number [id number] HCLL Dispense Status Presumed Transfused_PT HCLL Blood Expiration Date HCLL Coding System MXFZ440 HCLL Blood Bank Product Leandra Og MD BLOOD BANK PRODUCT ORD ERABLES Final Result HCLL * Prepare Platelets, leukoreduced, 1 Units (10/27/2024 6:16 AM EDT) Product Code Y8944S85 HCLL Unit Number [id number] HCLL Dispense Status Presumed Transfused_PT HCLL Blood Expiration Date [id number] HCLL Coding System SYAT847 HCLL Blood Bank Product Ben Blake MD BLOOD BANK PRODUCT ORDERABLES Final Result Performing Organization Address City/[facility] Co de Phone Number HCLL * Prepare Fresh Frozen Plasma (10/27/2024 6:15 AM EDT) Product Code Z8871C36 HCLL Unit Number [id number] HCLL Dispense Status Presumed Transfused_PT HCLL Blood Expiration Date HCLL Coding System BMHV216 HCLL Product Code T2386A28 HCLL Unit Number [id number] HCLL Dispense Status Released from Crossmatch_RE HCLL Blood Expiration Date HCLL Coding System BSND530 HCLL Product Code H2871R88 HCLL Unit Number [id number] HCLL Dispense Status Presumed Transfused_PT HCLL Blood Expiration Date HCLL Coding System TXMB707 HCLL Product Code R9549N82 HCLL Unit Number [id number] HCLL Dispense Status Presumed Transfused_PT HCLL Blood Expiration Date HCLL Coding System TLVQ465 HCLL Product Code T9882P74 HCLL Unit Number [id number] HCLL Dispense Status Released from Crossmatch_RE HCLL Blood Expiration Date HCLL Coding System HHGG923 HCLL us Attending Provider Unknown BLOOD BANK PRODUCT OR DERABLES Final Result Performing Organization Address City/[facility] Co de Phone Number HCLL * Prepare RBC, leukoreduced (10/27/2024 6:15 AM EDT) Product Code W3732A79 HCLL Unit Number [id number] HCLL Dispense Status Presumed Transfused_PT HCLL Blood Expiration Date 738449677380 HCLL Coding System NWQE988 HCLL Product Code G2688H40 HCLL Unit Number [id number] HCLL Dispense Status Released from Crossmatch_RE HCLL Blood Expiration Date HCLL Coding System WRGP793 HCLL Product Code U5870F07 HCLL Unit Number [id number] HCLL Dispense Status Released from Crossmatch_RE HCLL Blood Expiration Date 488437352233 HCLL Coding System EJWK126 HCLL Product Code O9943V68 HCLL Unit Number [id number] HCLL Dispense Status Released from Crossmatch_RE HCLL Blood Expiration Date 990251230490 HCLL Coding System DZXC608 HCLL Product Code A7233S87 HCLL Unit Number [id number] HCLL Dispense Status Released from Crossmatch_RE HCLL Blood Expiration Date 554035835015 HCLL Coding System FFNO665 HCLL us Attending Provider Unknown BLOOD BANK PRODUCT OR DERABLES Final Result Performing Organization Address City/[facility] Co de Phone Number HCLL * Prepare RBC, leukoreduced, 10 Units (10/27/2024 6:15 AM EDT) Product Code N9844K74 HCLL Unit Number [id number] HCLL Dispense Status Presumed Transfused_PT HCLL Blood Expiration Date 792312207735 HCLL Coding System SJMY299 HCLL Product Code I8195O37 HCLL Unit Number [id number] HCLL Dispense Status Presumed Transfused_PT HCLL Blood Expiration Date 675197441162 HCLL Coding System NSZY259 HCLL Product Code R1775V59 HCLL Unit Number [id number] HCLL Dispense Status Presumed Transfused_PT HCLL Blood Expiration Date 458724358014 HCLL Coding System XEJK511 HCLL Product Code O9231W97 HCLL Unit Number [id number] HCLL Dispense Status Presumed Transfused_PT HCLL Blood Expiration Date 740061998936 HCLL Coding System PPHL678 HCLL Product Code P3293F73 HCLL Unit Number [id number] HCLL Dispense Status Presumed Transfused_PT HCLL Blood Expiration Date 717527773482 HCLL Coding System RTMJ660 HCLL Product Code A8195J57 HCLL Unit Number [id number] HCLL Dispense Status Presumed Transfused_PT HCLL Blood Expiration Date 102243174950 HCLL Coding System NZID176 HCLL Product Code N9308U64 HCLL Unit Number [id number] HCLL Dispense Status Presumed Transfused_PT HCLL Blood Expiration Date 130898826606 HCLL Coding System LZXM008 HCLL Product Code Q6732K09 HCLL Unit Number [id number] HCLL Dispense Status Presumed Transfused_PT HCLL Blood Expiration Date 014791002082 HCLL Coding System HMGO536 HCLL Product Code D4431P63 HCLL Unit Number [id number] HCLL Dispense Status Presumed Transfused_PT HCLL Blood Expiration Date 748347898222 HCLL Coding System FWNH358 HCLL Product Code F5906C44 HCLL Unit Number [id number] HCLL Dispense Status Presumed Transfused_PT HCLL Blood Expiration Date 357440956012 HCLL Coding System RVBM746 HCLL Blood Bank Product us Leandra Og MD BLOOD BANK PRODUCT ORD ERABLES Final Result HCLL * Transfuse Platelets (10/27/2024 6:09 AM EDT) us Ben Blake MD NURSING TREATMENT ORDERABLES - BLOOD ADMIN Final Result * (ABNORMAL) Arterial Blood Gas Panel (10/27/2024 6:09 AM EDT) O2Sat (ABGP) 100 10/27/2024 6:17 AM EDT [facility] pH (ABGP) 7.30(L) 7.35 - 7.45 10/27/2024 6:17 AM EDT [facility] PCO2 (ABGP) 41 35 - 45 mm Hg 10/27/2024 6:17 AM EDT [facility] PO2 (ABGP) 192(H) 80 - 100 mm Hg 10/27/2024 6:17 AM EDT [facility] HCO3 (ABGP) 21(L) 22 - 26 mmol/L 10/27/2024 6:17 AM EDT [facility] CO2 Content (ABGP) 22(L) 23 - 27 mmol/L 10/27/2024 6:17 AM EDT [facility] Base Excess (ABGP) -5.7(L) -2.0 - 3.0 mmol/L 10/27/2024 6:17 AM EDT [facility] Sodium (ABGP) 138 136 - 146 mEq/L 10/27/2024 6:17 AM T [facility] Potassium (ABGP) 3.3(L) 3.5 - 5.0 mEq/L 10/27/2024 6:[facility]:In the event of in-v itro hemolysis, potassium results may be falsely elevated. Always interpret lab results in conjunction with clinical findings. If hemolysis is suspected, a serum sample may be collected for repeat assessment of potassium. Calcium, Free (ABGP) 5.28 4.50 - 5.30 mg/dL 10/27/2024 6:17 AM T [facility] Glucose (ABGP) 112(H) 70 - 100 mg/dL 10/27/2024 6:17 AM [facility] Comment:There is interferenc e with whole blood glucose results on this method when Hematocrit is <25% or >60%. HCT (ABGP) 20.0(L) 40.0 - 52.0 % 10/27/2024 6:17 AM EDT [facility] HGB (ABGP) 6.5(L) 14.0 - 18.0 g/dL 10/27/2024 6:17 AM EDT [facility] %HBO2 (ABGP) 96.8 95.0 - 98.0 % 10/27/2024 6:17 AM EDT [facility] Carboxyhgb (ABGP) 2.1 % 025 6:17 AM EDT [facility] Comment: CARBOXYHEMOGLOBIN (CO) REFERENCE RANGES: Non-Smokers: <2 % Smokers: <8 % TOXIC: >20 % Methemoglobin (ABGP) 1.0 0.0 - 1.5 % 10/27/2024 6:17 AM EDT [facility] Reduced Hemoglobin (ABGP) 0.2 0.0 - 5.0 % 10/27/2024 6:17 AM EDT [facility] Lactic Acid (ABGP) 0.4(L) 0.5 - 1.6 mmol/L 10/27/2024 6:17 AM EDT [facility] Blood, Arterial 10/27/2024 6 :09 AM EDT 10/27/2024 6:14 AM EDT Ben Blake MD LAB BLOOD ORDERABLES Final Re sult [facility] [address] * Transfuse Fresh Frozen Plasma (10/27/2024 5:49 AM EDT) us Ben Blake MD NURSING TREATMENT ORDERABLES - BLOOD ADMIN Final Result * Transfuse Cryoprecipitate (10/27/2024 4:56 AM EDT) us Ben Blake MD NURSING TREATMENT ORDERABLES - BLOOD ADMIN Final Result * Transfuse Cryoprecipitate (10/27/2024 4:49 AM EDT) Result Tiburcio Blake MD NURSING TREATMENT ORDERABLES - BLOOD ADMIN Final Result * (ABNORMAL) POC Glucose Monitoring Device (10/27/2024 4:46 AM EDT) POC Glucose Monitoring Device 124(H) 70 - 100 mg/dL 10/27/2024 4:47 AM EDT [facility] Blood 10/27/2024 4:46 AM EDT 10/27/2024 4:47 AM EDT Harvey Domínguez III, MD POINT OF CARE TEST ORDERABLES Final Result [facility] [address] [address], [facility] * Transfuse Platelets (10/27/2024 4:24 AM EDT) Result [facility] Ben Blake MD NURSING TREATMENT ORDERABLES - BLOOD ADMIN Final Result * Transfuse Fresh Frozen Plasma (10/27/2024 4:07 AM EDT) Ben Blake MD NURSING TREATMENT ORDERABLES - BLOOD ADMIN Final Result * Transfuse RBC (10/27/2024 3:52 AM EDT) Result [facility] Ben Blake MD NURSING TREATMENT ORDERABLES - BLOOD ADMIN Final Result * (ABNORMAL) Arterial Blood Gas Panel (10/27/2024 3:07 AM EDT) O2Sat (ABGP) 100 10/27/2024 3:21 AM EDT [facility] pH (ABGP) 7.32(L) 7.35 - 7.45 10/27/2024 3:21 AM EDT [facility] PCO2 (ABGP) 38 35 - 45 mm Hg 10/27/2024 3:21 AM EDT [facility] PO2 (ABGP) 176(H) 80 - 100 mm Hg 10/27/2024 3:21 AM EDT [facility] HCO3 (ABGP) 20(L) 22 - 26 mmol/L 10/27/2024 3:21 AM EDT [facility] CO2 Content (ABGP) 21(L) 23 - 27 mmol/L 10/27/2024 3:21 AM EDT [facility] Base Excess (ABGP) -6.0(L) -2.0 - 3.0 mmol/L 10/27/2024 3:21 AM EDT [facility] Sodium (ABGP) 138 136 - 146 mEq/L 10/27/2024 3:21 AM EDT [facility] Potassium (ABGP) 3.0(L) 3.5 - 5.0 mEq/L 10/27/2024 3:21 AM T [facility] Comment:In the event of in-v itro hemolysis, potassium results may be falsely elevated. Always interpret lab results in conjunction with clinical findings. If hemolysis is suspected, a serum sample may be collected for repeat assessment of potassium. Calcium, Free (ABGP) 5.28 4.50 - 5.30 mg/dL 10/27/2024 3:21 AM EDT [facility] Glucose (ABGP) 108(H) 70 - 100 mg/dL 10/27/2024 3:21 AM T [facility] Comment:There is interferenc e with whole blood glucose results on this method when Hematocrit is <25% or >60%. HCT (ABGP) 22.0(L) 40.0 - 52.0 % 10/27/2024 3:21 AM EDT [facility] HGB (ABGP) 7.3(L) 14.0 - 18.0 g/dL 10/27/2024 3:21 AM T [facility] %HBO2 (ABGP) 97.3 95.0 - 98.0 % 10/27/2024 3:21 AM T [facility] Carboxyhgb (ABGP) 1.9 % 025 3:21 AM T [facility] Comment: CARBOXYHEMOGLOBIN (CO) REFERENCE RANGES: Non-Smokers: <2 % Smokers: <8 % TOXIC: >20 % Methemoglobin (ABGP) 0.8 0.0 - 1.5 % 10/27/2024 3:21 AM EDT [facility] Reduced Hemoglobin (ABGP) 0.0 0.0 - 5.0 % 10/27/2024 3:21 AM T [facility] Lactic Acid (ABGP) 0.3(L) 0.5 - 1.6 mmol/L 10/27/2024 3:21 AM [facility] Blood, Arterial 10/27/2024 3 :07 AM EDT 10/27/2024 3:14 AM EDT Ben Blake MD LAB BLOOD ORDERABLES Final Re sult [facility] [address] [place] [id number], [facility] * Surgical Pathology Exam (10/27/2024 2:38 AM EDT) Tissue LEFT KIDNEY STRUCTURE / Unknown 10/27/2024 2:38 AM EDT Narrative [facility] - 10/27/2024 12:00 AM EDT CASE: [id number] PATIENT: BLAIR GILBERT Clinical History: Transplant kidney with bile duct reconstruction Pre-Operative Diagnosis: Acute kidney injury superimposed on CKD Post-Operative Diagnosis: None Given Specimen(s) Submitted: A. baseline renal biopsy ; B. right lobe liver biopsy; C. left lobe liver biopsy CPT Code(s): 07066 X 1; 59174 X 2; 10688 X 4 Additional Information: FINAL DIAGNOSIS: A. [...] parenchyma, which is entirely submitted in cassette [id number]. (NAA Mckeno/johnnie) B. Received in formalin, labeled with the patient's name Blair Gilbert and right lobe liver biopsy are two green-brown tissue cores measuring 1.8 and 2.0 cm in length, each with a diameter of 0.1 cm, which are entirely submitted between blue biopsy sponges in cassette [facility]-[id number] B1-B2. (NAA Mckeon/ns) C. Received in formalin, labeled with the patient's name Blair Gilbert and left lobe liver biopsy are two green-georges tissue cores measuring 1.2 and 1.4 cm in length, each with a diameter of 0.1 cm, which are entirely submitted between blue biopsy sponges in cassette [facility]-[id number] C1-C2. (NAA Mckeon/ns) Microscopic Description: I, the attending pathologist, have personally reviewed all prosector/resident work and pathology slides to determine final diagnosis. Control Materials Reacted Appropriately. Final Diagnosis performed by CLARE FALL MD Pathologist Electronically signed 10/31/2024 01:07:09 PM The Pathologist signing this report is located at [facility], [address] [place] [address], [address], , CLIA ID: [id number] ADDENDUM: A. Kidney, allograft, baseline, wedge biopsy: [...] Pathologist signing this report is located at [facility], [address] [place] [address], [address], , CLIA ID: [id number] us Kemar Sahni MD PATHOLOGY/CYTOLOGY ORDERABL ES Edited Result - Final [facility] * Anaerobic culture (10/27/2024 2:15 AM EDT) Culture Result No Anaerobes Isolated in 5 Days [facility] Fluid SPECIMEN FROM KIDNEY / Unknown 10/27/2024 2:15 AM EDT 10/27/2024 4:24 AM EDT Narrative [facility] - 10/31/2024 11:43 AM EDT 1) perfusate us Harvey Domínguez III, MD MICROBIOLOGY - GENE RAL ORDERABLES Final Result Performing Organization Address [facility] de Phone Number [facility] [address] [place] [address]. [address] * Routine Culture plus Stain (10/27/2024 2:15 AM EDT) [facility] Gram Stain Result No Polymorphonuclear Leukocytes Seen [facility] Gram Stain Result No Organisms Seen; [facility] Culture Result No Growth After 3 Days [facility] Fluid SPECIMEN FROM KIDNEY / Unknown 10/27/2024 2:15 AM EDT 10/27/2024 4:24 AM EDT Narrative [facility] - 10/30/2024 9:26 AM EDT 1) perfusate us Harvey Domínguez III, MD MICROBIOLOGY - GENE RAL ORDERABLES Final Result Performing Organization Address [facility] de Phone Number [facility] [address] [place] [address] * Transfuse Platelets Transfusion Rate: Per dept routine (10/27/2024 1:52 AM EDT) John Pina MD NURSING TREATMENT ORDERABLES - BLOOD ADMIN Final Result Performing Organization Address [facility] de Phone Number EXTERNAL * Transfuse Platelets Transfusion Rate: Per dept routine, 1 Units (10/27/2024 1:52 AM EDT) us John Pina MD NURSING TREATMENT ORDERABLES - BLOOD ADMIN Final Result Performing Organization Address [facility] de Phone Number EXTERNAL * (ABNORMAL) TEG-Standard Global Hemostasis (Rapid TEG with Heparin Effect, Contains a Baseline TEG) (10/27/2024 1:51 AM EDT) Citrated Kaolin Reaction Time (TEGHEPARINASE) 10.6(H) 4.6 - 9.1 minutes 10/27/2024 2:44 AM EDT [facility] Citrated Rapid Teg Maximum Amplitude (TEGHEPARINASE) 42.3(L) 52.0 - 70.0 mm 10/27/2024 2:44 AM EDT [facility] Citrated Functional Fibrinogen Maximum Amplitude (TEGHEPARINASE) 15.0 15.0 - 32.0 mm 10/27/2024 2:44 AM EDT [facility] Citrated Kaolin W/Heparinase Reaction Time (TEGHEPARINASE) 10.5(H) 4.3 - 8.3 minutes 10/27/2024 2:44 AM EDT [facility] Citrated Kaolin K-Time (TEGHEPARINASE) 2.9(A) 0.8 - 2.1 minutes 10/27/2024 2:44 AM EDT [facility] Citrated Kaolin Angle (TEGHEPARINASE) 60.4(A) 63.0 - 78.0 degrees 10/27/2024 2:44 AM EDT [facility] Citrated Kaolin Maximum Amplitude (TEGHEPARINASE) 42.9(L) 52.0 - 69.0 mm 10/27/2024 2:44 AM EDT [facility] Citrated Functional Fibrinogen- Fibrinogen Level (TEGHEPARINASE) 273.7(L) 278.0 - 581.0 mg/dL 10/27/2024 2:44 AM EDT [facility] Whole Blood (Citrate) 10/27/2024 1:51 AM EDT 10/27/2024 2:03 AM EDT us John Pina MD LAB BLOOD ORDERABLES Final Resu lt [facility] [address] [place] [address], [facility] * (ABNORMAL) POC Glucose Monitoring Device (10/27/2024 1:50 AM EDT) POC Glucose Monitoring Device 121(H) 70 - 100 mg/dL 10/27/2024 1:51 AM EDT [facility] Blood 10/27/2024 1:50 AM EDT 10/27/2024 1:51 AM EDT Result Tiburcio Domínguez III, MD POINT OF CARE TEST ORDERABLES Final Result Performing Organization Address [facility] Co de Phone Number [facility] [address] [facility] * Transfuse Cryoprecipitate Transfusion Rate: Per dept routine (10/27/2024 1:25 AM EDT) Result Tiburcio Pina MD NURSING TREATMENT ORDERABLES - BLOOD ADMIN Final Result Performing Organization Address [facility] Co de Phone Number EXTERNAL * Transfuse Cryoprecipitate Transfusion Rate: Per dept routine, 1 Units (10/27/2024 1:25 AM EDT) Result Tiburcio Pina MD NURSING TREATMENT ORDERABLES - BLOOD ADMIN Final Result Performing Organization Address [facility] Co de Phone Number EXTERNAL * (ABNORMAL) POC Glucose Monitoring Device (10/27/2024 1:21 AM EDT) POC Glucose Monitoring Device 123(H) 70 - 100 mg/dL 10/27/2024 1:22 AM EDT [facility] Blood 10/27/2024 1:21 AM EDT 10/27/2024 1:21 AM EDT Result Tiburcio Domínguez III, MD POINT OF CARE TEST ORDERABLES Final Result Performing Organization Address [facility] Co de Phone Number [facility] [address] [facility] [place] [address], [facility] * Transfuse Fresh Frozen Plasma Transfusion Rate: Per dept routine (10/27/2024 1:03 AM EDT) Result Tiburcio Pina MD NURSING TREATMENT ORDERABLES - BLOOD ADMIN Final Result Performing Organization Address [facility] Co de Phone Number EXTERNAL * Transfuse Fresh Frozen Plasma Transfusion Rate: Per dept routine, 1 Units (10/27/2024 1:03 AM EDT) Result Tiburcio Pina MD NURSING TREATMENT ORDERABLES - BLOOD ADMIN Final Result EXTERNAL * Calcium Free, Serum (10/27/2024 12:13 AM EDT) Free Calcium, Ser 5.20 4.40 - 5.40 mg/dL 10/27/2024 12:37 AM EDT [facility] Comment:Free calcium levels vary inversely with pH by approximately 5% for each 0.1 unit of pH change. Assay results have been normalized to pH = 7.40. Serum 10/27/2024 12:1 3 AM EDT 10/27/2024 12:29 AM EDT Narrative [facility] - 10/27/2024 12:37 AM EDT This test has been developed and its performance characteristics determined by [facility] which is certified under the [...] Final Resu lt Performing Organization Address City/[facility]/ZIP Co de Phone Number [facility] [address] [place] [address], [facility] * (ABNORMAL) Blood Gas, Arterial, STAT (10/27/2024 12:13 AM EDT) O2 Sat, Arterial 100 10/27/2024 12:23 AM EDT [facility] FIO2 30 10/27/2024 12:23 AM EDT [facility] pH, Arterial 7.32(L) 7.35 - 7.45 10/27/2024 12:23 AM EDT [facility] pCO2, Arterial 37 35 - 45 mm Hg 10/27/2024 12:23 AM EDT [facility] pO2, Arterial 137(H) 80 - 100 mm Hg 10/27/2024 12:23 AM EDT [facility] HCO3, Arterial 20(L) 22 - 26 mmol/L 10/27/2024 12:23 AM EDT [facility] CO2 Content,Arteri al 20(L) 23 - 27 mmol/L 10/27/2024 12:23 AM EDT [facility] Base Excess, Arterial -6.4(L) -2.0 - 3.0 mmol/L 10/27/2024 12:23 AM EDT [facility] %HBO2, Arterial 96.2 95.0 - 98.0 % 10/27/2024 12:23 AM EDT [facility] Carboxyhemoglo bin, Arterial 1.9 % 10/27/2024 12:23 AM EDT [facility] Comment: CARBOXYHEMOGLOBIN (CO) REFERENCE RANGES: Non-Smokers: <2 % Smokers: <8 % TOXIC: >20 % Methemoglobin, Arterial 1.5 0.0 - 1.5 % 10/27/2024 12:23 AM EDT [facility] Reduced hemoglobin, Arterial 0.4 0.0 - 5.0 % 10/27/2024 12:23 AM EDT [facility] Blood, Arterial 10/27/2024 1 2:13 AM EDT 10/27/2024 12:18 AM EDT us John Pina MD LAB BLOOD ORDERABLES Final Resu lt [facility] [address] [address], [facility] * (ABNORMAL) TEG-Bypass/ECMO/Liver HN (Factor function, Platelet/Fibrin Clot Strength w/Clot Breakdown, Heparinase In All Channels) (10/27/2024 12:13 AM EDT) [facility] Citrated Kaolin Reaction Time (TEGECMOLIVER) 9.1 4.6 - 9.1 minutes 10/27/2024 1:43 AM EDT [facility] Citrated Kaolin W/Heparinase Reaction Time (TEGECMOLIVER) 9.7(H) 4.3 - 8.3 minutes 10/27/2024 1:43 AM EDT [facility] Citrated Kaolin Maximum Amplitude (TEGECMOLIVER) <40.0(L) 52.0 - 69.0 mm 10/27/2024 1:43 AM EDT [facility] Cit[facility] Functional Fibrinogen W/Heparinase Maximum Amplitude(TEGEC MOLIVER) 11.9(L) 15.0 - 34.0 mm 10/27/2024 1:43 AM EDT [facility] Citrated Rapid Teg W/Heparinase Maximum Amplitude (TEGECMOLIVER) 31.6(L) 53.0 - 69.0 mm 10/27/2024 1:43 AM EDT [facility] Citrated Kaolin w/Heparinase Percent Lysis (TEGECMOLIVER) 0.0 0.0 - 3.2 % 10/27/2024 1:43 AM EDT [facility] Whole Blood (Citrate) 10/27/2024 12:13 AM EDT 10/27/2024 12:18 AM EDT Kemar Sahni MD LAB BLOOD ORDERABLES Final Result Performing Organization Address [facility] Co de Phone Number [facility] [address] [facility] * (ABNORMAL) Lactic Acid (10/27/2024 12:13 AM EDT) Lactate 0.2(L) 0.5 - 2.2 mmol/L 10/27/2024 12:59 AM EDT [facility] Plasma 10/27/2024 12:1 3 AM EDT 10/27/2024 12:31 AM EDT Kemar Sahni MD LAB BLOOD ORDERABLES Final Result [facility] [address] * Magnesium (10/27/2024 12:13 AM EDT) Magnesium 1.8 1.5 - 2.5 mg/dL 10/27/2024 12:52 AM EDT [facility] Plasma 10/27/2024 12:1 3 AM EDT 10/27/2024 12:29 AM EDT Kemar Sahni MD LAB BLOOD ORDERABLES Final Result [facility] [address] * (ABNORMAL) Hepatic Function Panel (10/27/2024 12:13 AM EDT) Total Bilirubin 1.6(H) 0.0 - 1.5 mg/dL 10/27/2024 12:52 AM EDT [facility] Bilirubin, Direct 1.17(H) 0.00 - 0.40 mg/dL 10/27/2024 12:52 AM EDT [facility] AST 157(H) 13 - 39 U/L 10/27/2024 12:52 AM EDT [facility] ALT 261(H) 7 - 52 U/L 10/27/2024 12:52 AM EDT [facility] Alkaline Phosphatase 26(L) 36 - 125 U/L 10/27/2024 12:52 AM EDT [facility] Total Protein 3.8(L) 6.4 - 8.9 g/dL 10/27/2024 12:52 AM EDT [facility] Albumin 2.8(L) 3.5 - 5.7 g/dL 10/27/2024 12:52 AM EDT [facility] Bilirubin, Indirect 0.43 0.00 - 1.10 mg/dL 10/27/2024 12:52 AM EDT [facility] Plasma 10/27/2024 12:1 3 AM EDT 10/27/2024 12:29 AM EDT Kemar Sahni MD LAB BLOOD ORDERABLES Final Result [facility] [address] [place] [address], [facility] * (ABNORMAL) Protime-INR (10/27/2024 12:13 AM EDT) Protime 18.6(H) 12.1 - 15.1 seconds 10/27/2024 12:43 AM EDT [facility] INR 1.5(H) 0.9 - 1.1 10/27/2024 12:43 AM EDT [facility] Comment: RECOMMENDED THERAPEUTIC RANGES USING INR : Stable oral anticoagulant therapy: 2.0 - 3.0 Mechanical prosthetic heart valve: 2.5 - 3.5 Recurrent acute myocardial infarction: 2.5 - 3.5 Plasma 10/27/2024 12:1 3 AM EDT 10/27/2024 12:29 AM EDT Kemar Sahni MD LAB BLOOD ORDERABLES Final Result [facility] [address] [place] [address], [facility] * (ABNORMAL) CBC (10/27/2024 12:13 AM EDT) WBC 5.0 3.8 - 10.8 10E3/uL 10/27/2024 12:59 AM EDT [facility] RBC 2.70(L) 4.20 - 5.80 10E6/uL 10/27/2024 12:59 AM EDT [facility] Hemoglobin 8.5(L) 13.2 - 17.1 g/dL 10/27/2024 12:59 AM EDT [facility] Hematocrit 23.9(L) 38.5 - 50.0 % 10/27/2024 12:59 AM EDT [facility] MCV 88.5 80.0 - 100.0 fL 10/27/2024 12:59 AM EDT [facility] MCH 31.5 27.0 - 33.0 pg 10/27/2024 12:59 AM EDT [facility] MCHC 35.6 32.0 - 36.0 g/dL 10/27/2024 12:59 AM EDT [facility] RDW 20.6(H) 11.0 - 15.0 % 10/27/2024 12:59 AM EDT [facility] Platelets 35(L) 140 - 400 10E3/uL 10/27/2024 12:59 AM EDT [facility] Comment: CNV Specimen checked for clots. None detected. MPV 7.6 7.5 - 11.5 fL 10/27/2024 12:59 AM EDT [facility] Whole Blood 10/27/2024 12:1 3 AM EDT 10/27/2024 12:29 AM EDT Kemar Sahni MD LAB BLOOD ORDERABLES Final Result [facility] [address] [place] [address], [facility] * (ABNORMAL) Renal Function Panel w/EGFR (10/27/2024 12:13 AM EDT) Sodium 141 133 - 146 mmol/L 10/27/2024 12:52 AM EDT [facility] Potassium 3.2(L) 3.5 - 5.3 mmol/L 10/27/2024 12:52 AM EDT [facility] Chloride 109 98 - 110 mmol/L 10/27/2024 12:52 AM EDT [facility] CO2 21 21 - 33 mmol/L 10/27/2024 12:52 AM EDT [facility] Anion Gap 11 3 - 16 mmol/L 10/27/2024 12:52 AM EDT [facility] BUN 64(H) 7 - 25 mg/dL 10/27/2024 12:52 AM EDT [facility] Creatinine 2.58(H) 0.60 - 1.30 mg/dL 10/27/2024 12:52 AM EDT [facility] Glucose 126(H) 70 - 100 mg/dL 10/27/2024 12:52 AM EDT [facility] Calcium 8.9 8.6 - 10.3 mg/dL 10/27/2024 12:52 AM EDT [facility] Phosphorus 5.3(H) 2.1 - 4.7 mg/dL 10/27/2024 12:52 AM EDT [facility] Albumin 2.8(L) 3.5 - 5.7 g/dL 10/27/2024 12:52 AM EDT [facility] Osmolality, Calculated 312(H) 278 - 305 mOsm/kg 10/27/2024 12:52 AM EDT [facility] EGFR 31 10/27/2024 12:52 AM EDT [facility] Comment:As of 2021, the [...] ORDERABLES Final Result Performing Organization Address City/[facility]/ZIP Co de Phone Number [facility] [address] [facility]. [address] * (ABNORMAL) POC Glucose Monitoring Device (10/27/2024 12:08 AM EDT) POC Glucose Monitoring Device 121(H) 70 - 100 mg/dL 10/27/2024 12:08 AM EDT [facility] Blood 10/27/2024 12:0 8 AM EDT 10/27/2024 12:08 AM EDT Harvey Domínguez III, MD POINT OF CARE TEST ORDERABLES Final Result Performing Organization Address City/[facility]/ZIP Co de Phone Number [facility] [address] * (ABNORMAL) POC Glucose Monitoring Device (10/26/2024 11:15 PM EDT) POC Glucose Monitoring Device 120(H) 70 - 100 mg/dL 10/26/2024 11:15 PM EDT [facility] Blood 10/26/2024 11:1 5 PM EDT 10/26/2024 11:15 PM EDT Harvey Domínguez III, MD POINT OF CARE TEST ORDERABLES Final Result Performing Organization Address City/[facility] Co de Phone Number [facility] [address] [place] [phone], [facility] * (ABNORMAL) TEG-Bypass/ECMO/Liver HN (Factor function, Platelet/Fibrin Clot Strength w/Clot Breakdown, Heparinase In All Channels) (10/26/2024 10:36 PM EDT) [facility] Citrated Kaolin Reaction Time (TEGECMOLIVER) 10.0(H) 4.6 - 9.1 minutes 10/26/2024 11:53 PM EDT [facility] Citrated Kaolin W/Heparinase Reaction Time (TEGECMOLIVER) 10.2(H) 4.3 - 8.3 minutes 10/26/2024 11:53 PM EDT [facility] Citrated Kaolin Maximum Amplitude (TEGECMOLIVER) <40.0(L) 52.0 - 69.0 mm 10/26/2024 11:53 PM EDT [facility] Citrated Functional Fibrinogen W/Heparinase Maximum Amplitude(TEGEC MOLIVER) 11.3(L) 15.0 - 34.0 mm 10/26/2024 11:53 PM EDT [facility] Citrated Rapid Teg W/Heparinase Maximum Amplitude (TEGECMOLIVER) 41.8(L) 53.0 - 69.0 mm 10/26/2024 11:53 PM EDT [facility] Citrated Kaolin w/Heparinase Percent Lysis (TEGECMOLIVER) 0.0 0.0 - 3.2 % 10/26/2024 11:53 PM EDT [facility] Whole Blood (Citrate) 10/26/2024 10:36 PM EDT 10/26/2024 10:43 PM EDT Kemar Sahni MD LAB BLOOD ORDERABLES Final Result [facility] [address] * (ABNORMAL) POC Glucose Monitoring Device (10/26/2024 10:14 PM EDT) POC Glucose Monitoring Device 124(H) 70 - 100 mg/dL 10/26/2024 11:11 PM EDT [facility] Blood 10/26/2024 10:1 4 PM EDT 10/26/2024 11:11 PM EDT us Harvey Domínguez III, MD POINT OF CARE TEST ORDERABLES Final Result Performing Organization Address [facility] Co de Phone Number [facility] [address] [facility]. [address] * (ABNORMAL) POC Glucose Monitoring Device (10/26/2024 9:16 PM EDT) POC Glucose Monitoring Device 119(H) 70 - 100 mg/dL 10/26/2024 9:18 PM EDT [facility] Blood 10/26/2024 9:16 PM EDT 10/26/2024 9:18 PM EDT us Harvey Domínguez III, MD POINT OF CARE TEST ORDERABLES Final Result Performing Organization Address City/[facility]/ZIP Co de Phone Number [facility] [address] [facility]. [address] * (ABNORMAL) POC Glucose Monitoring Device (10/26/2024 8:05 PM EDT) POC Glucose Monitoring Device 113(H) 70 - 100 mg/dL 10/26/2024 8:06 PM EDT [facility] Blood 10/26/2024 8:05 PM EDT 10/26/2024 8:06 PM EDT us Harvey Domínguez III, MD POINT OF CARE TEST ORDERABLES Final Result [facility] [address] * (ABNORMAL) POC Glucose Monitoring Device (10/26/2024 7:02 PM EDT) POC Glucose Monitoring Device 111(H) 70 - 100 mg/dL 10/26/2024 7:03 PM EDT [facility] Blood 10/26/2024 7:02 PM EDT 10/26/2024 7:03 PM EDT us Harvey Domínguez III, MD POINT OF CARE TEST ORDERABLES Final Result Performing Organization Address [facility] Co de Phone Number [facility] [address] [facility]. [address] * Transfuse Cryoprecipitate Transfusion Rate: Per dept routine (10/26/2024 6:39 PM EDT) us John Pina MD NURSING TREATMENT ORDERABLES - BLOOD ADMIN Final Result Performing Organization Address [facility]/ZIP Co de Phone Number EXTERNAL * Transfuse Cryoprecipitate Transfusion Rate: Per dept routine, 1 Units (10/26/2024 6:39 PM EDT) us John Pina MD NURSING TREATMENT ORDERABLES - BLOOD ADMIN Final Result Performing Organization Address [facility] Co de Phone Number EXTERNAL * (ABNORMAL) POC Glucose Monitoring Device (10/26/2024 6:33 PM EDT) POC Glucose Monitoring Device 110(H) 70 - 100 mg/dL 10/26/2024 6:34 PM EDT [facility] Blood 10/26/2024 6:33 PM EDT 10/26/2024 6:34 PM EDT us Harvey Domínguez III, MD POINT OF CARE TEST ORDERABLES Final Result Performing Organization Address City/[facility]/ZIP Co de Phone Number [facility] [address] * Transfuse Cryoprecipitate Transfusion Rate: Per dept routine (10/26/2024 6:22 PM EDT) John Pina MD NURSING TREATMENT ORDERABLES - BLOOD ADMIN Final Result Performing Organization Address [facility] Co de Phone Number EXTERNAL * Transfuse Cryoprecipitate Transfusion Rate: Per dept routine, 1 Units (10/26/2024 6:22 PM EDT) John Pina MD NURSING TREATMENT ORDERABLES - BLOOD ADMIN Final Result Performing Organization Address City/[facility] Co de Phone Number EXTERNAL * (ABNORMAL) POC Glucose Monitoring Device (10/26/2024 6:17 PM EDT) POC Glucose Monitoring Device 104(H) 70 - 100 mg/dL 10/26/2024 6:18 PM EDT [facility] Blood 10/26/2024 6:17 PM EDT 10/26/2024 6:18 PM EDT Harvey Domínguez III, MD POINT OF CARE TEST ORDERABLES Final Result Performing Organization Address [facility] de Phone Number [facility] [address] [facility] * (ABNORMAL) POC Glucose Monitoring Device (10/26/2024 4:58 PM EDT) POC Glucose Monitoring Device 115(H) 70 - 100 mg/dL 10/26/2024 4:59 PM EDT [facility] Blood 10/26/2024 4:58 PM EDT 10/26/2024 4:58 PM EDT Harvey Domínguez III, MD POINT OF CARE TEST ORDERABLES Final Result Performing Organization Address [facility] Co de Phone Number [facility] [address] * (ABNORMAL) Calcium Free, Serum (10/26/2024 4:42 PM EDT) Free Calcium, Ser 5.67(H) 4.40 - 5.40 mg/dL 10/26/2024 4:55 PM EDT [facility] Comment:Free calcium levels vary inversely with pH by approximately 5% for each 0.1 unit of pH change. Assay results have been normalized to pH = 7.40. Serum 10/26/2024 4:42 PM EDT 10/26/2024 4:47 PM EDT Narrative [facility] - 10/26/2024 4:55 PM EDT This test has been developed and its performance characteristics determined by [facility] which is certified under the [...] Final Resu lt Performing Organization Address [facility] Co de Phone Number [facility] [address] * Repeat Crossmatch (Recipient Sample) (10/26/2024 4:42 PM EDT) Repeat Cx - Recipient The request and specimen(s) for this test have been received and transported to the [facility] at [address] [place] [address]. The [facility] will report results directly to the client. 10/26/2024 4:49 PM EDT [facility] Whole Blood 10/26/2024 4:42 PM EDT 10/26/2024 4:49 PM EDT Narrative [facility] - 10/26/2024 4:49 PM EDT To be sent to [facility] for Donor UNOS#[id number] cross match with Blair Gilbert Sveta Judge MD LAB BLOOD ORDERABLES Final Resu lt Performing Organization Address [facility]/ZIP Co de Phone Number [facility] [address] * (ABNORMAL) Lactic Acid (10/26/2024 4:42 PM EDT) Lactate 0.3(L) 0.5 - 2.2 mmol/L 10/26/2024 5:19 PM EDT [facility] Plasma 10/26/2024 4:42 PM EDT 10/26/2024 4:47 PM EDT Kemar Sahni MD LAB BLOOD ORDERABLES Final Result [facility] [address] [facility] * Magnesium (10/26/2024 4:42 PM EDT) Pathologist [facility] Magnesium 2.0 1.5 - 2.5 mg/dL 10/26/2024 5:24 PM EDT [facility] Plasma 10/26/2024 4:42 PM EDT 10/26/2024 4:47 PM EDT Kemar Sahni MD LAB BLOOD ORDERABLES Final Result Performing Organization Address [facility] de Phone Number [facility] [address] [facility] * (ABNORMAL) Hepatic Function Panel (10/26/2024 4:42 PM EDT) Total Bilirubin 2.3(H) 0.0 - 1.5 mg/dL 10/26/2024 5:24 PM EDT [facility] Bilirubin, Direct 1.85(H) 0.00 - 0.40 mg/dL 10/26/2024 5:24 PM EDT [facility] AST 374(H) 13 - 39 U/L 10/26/2024 5:24 PM EDT [facility] ALT 458(H) 7 - 52 U/L 10/26/2024 5:24 PM EDT [facility] Alkaline Phosphatase 39 36 - 125 U/L 10/26/2024 5:24 PM EDT [facility] Total Protein 3.8(L) 6.4 - 8.9 g/dL 10/26/2024 5:24 PM EDT [facility] Albumin 3.0(L) 3.5 - 5.7 g/dL 10/26/2024 5:24 PM EDT [facility] Bilirubin, Indirect 0.45 0.00 - 1.10 mg/dL 10/26/2024 5:24 PM EDT [facility] Plasma 10/26/2024 4:42 PM EDT 10/26/2024 4:47 PM EDT Kemar Sahni MD LAB BLOOD ORDERABLES Final Result [facility] [address] [facility] * (ABNORMAL) Protime-INR (10/26/2024 4:42 PM EDT) Protime 20.3(H) 12.1 - 15.1 seconds 10/26/2024 5:12 PM EDT [facility] INR 1.7(H) 0.9 - 1.1 10/26/2024 5:12 PM EDT [facility] Comment: RECOMMENDED THERAPEUTIC RANGES USING INR : Stable oral anticoagulant therapy: 2.0 - 3.0 Mechanical prosthetic heart valve: 2.5 - 3.5 Recurrent acute myocardial infarction: 2.5 - 3.5 Plasma 10/26/2024 4:42 PM EDT 10/26/2024 4:47 PM EDT Kemar Sahni MD LAB BLOOD ORDERABLES Final Result [facility] [address] [facility] * (ABNORMAL) CBC (10/26/2024 4:42 PM EDT) WBC 10.0 3.8 - 10.8 10E3/uL 10/26/2024 5:00 PM EDT [facility] RBC 3.44(L) 4.20 - 5.80 10E6/uL 10/26/2024 5:00 PM EDT [facility] Hemoglobin 10.5(L) 13.2 - 17.1 g/dL 10/26/2024 5:00 PM EDT [facility] Hematocrit 30.2(L) 38.5 - 50.0 % 10/26/2024 5:00 PM EDT [facility] MCV 87.7 80.0 - 100.0 fL 10/26/2024 5:00 PM EDT [facility] MCH 30.6 27.0 - 33.0 pg 10/26/2024 5:00 PM EDT [facility] MCHC 34.8 32.0 - 36.0 g/dL 10/26/2024 5:00 PM EDT [facility] RDW 20.1(H) 11.0 - 15.0 % 10/26/2024 5:00 PM EDT [facility] Platelets 48(L) 140 - 400 10E3/uL 10/26/2024 5:00 PM EDT [facility] Comment:Specimen checked for clots. None detected. MPV 7.9 7.5 - 11.5 fL 10/26/2024 5:00 PM EDT [facility] Whole Blood 10/26/2024 4:42 PM EDT 10/26/2024 4:47 PM EDT Kemar Sahni MD LAB BLOOD ORDERABLES Final Result [facility] [address] * (ABNORMAL) Renal Function Panel w/EGFR (10/26/2024 4:42 PM EDT) Sodium 142 133 - 146 mmol/L 10/26/2024 5:24 PM EDT [facility] Potassium 3.3(L) 3.5 - 5.3 mmol/L 10/26/2024 5:24 PM EDT [facility] Chloride 109 98 - 110 mmol/L 10/26/2024 5:24 PM EDT [facility] CO2 23 21 - 33 mmol/L 10/26/2024 5:24 PM EDT [facility] Anion Gap 10 3 - 16 mmol/L 10/26/2024 5:24 PM EDT [facility] BUN 63(H) 7 - 25 mg/dL 10/26/2024 5:24 PM EDT [facility] Creatinine 2.85(H) 0.60 - 1.30 mg/dL 10/26/2024 5:24 PM EDT [facility] Glucose 127(H) 70 - 100 mg/dL 10/26/2024 5:24 PM EDT [facility] Calcium 8.9 8.6 - 10.3 mg/dL 10/26/2024 5:24 PM EDT [facility] Phosphorus 4.4 2.1 - 4.7 mg/dL 10/26/2024 5:24 PM EDT [facility] Albumin 3.0(L) 3.5 - 5.7 g/dL 10/26/2024 5:24 PM EDT [facility] Osmolality, Calculated 314(H) 278 - 305 mOsm/kg 10/26/2024 5:24 PM EDT [facility] EGFR 28 10/26/2024 5:24 PM EDT [facility] Comment:As of 2021, the [...] Sahni MD LAB BLOOD ORDERABLES Final Result [facility] [address] * (ABNORMAL) POC Glucose Monitoring Device (10/26/2024 3:54 PM EDT) POC Glucose Monitoring Device 126(H) 70 - 100 mg/dL 10/26/2024 3:55 PM EDT [facility] Blood 10/26/2024 3:54 PM EDT 10/26/2024 3:55 PM EDT Harvey Domínguez III, MD POINT OF CARE TEST ORDERABLES Final Result [facility] [address] [facility]. [address] * (ABNORMAL) POC Glucose Monitoring Device (10/26/2024 3:06 PM EDT) POC Glucose Monitoring Device 144(H) 70 - 100 mg/dL 10/26/2024 3:14 PM EDT [facility] Blood 10/26/2024 3:06 PM EDT 10/26/2024 3:13 PM EDT Harvey Domínguez III, MD POINT OF CARE TEST ORDERABLES Final Result [facility] [address] [facility]. [address] * (ABNORMAL) TEG-Bypass/ECMO/Liver HN (Factor function, Platelet/Fibrin Clot Strength w/Clot Breakdown, Heparinase In All Channels) (10/26/2024 3:03 PM EDT) Citrated Kaolin Reaction Time (TEGECMOLIVER) 8.2 4.6 - 9.1 minutes 10/26/2024 4:43 PM EDT [facility] Citrated Kaolin W/Heparinase Reaction Time (TEGECMOLIVER) 8.2 4.3 - 8.3 minutes 10/26/2024 4:43 PM EDT [facility] Citrated Kaolin Maximum Amplitude (TEGECMOLIVER) 41.7(L) 52.0 - 69.0 mm 10/26/2024 4:43 PM EDT [facility] Citrated Functional Fibrinogen W/Heparinase Maximum Amplitude(TEGEC MOLIVER) 11.4(L) 15.0 - 34.0 mm 10/26/2024 4:43 PM EDT [facility] Citrated Rapid Teg W/Heparinase Maximum Amplitude (TEGECMOLIVER) 38.6(L) 53.0 - 69.0 mm 10/26/2024 4:43 PM EDT [facility] Citrated Kaolin w/Heparinase Percent Lysis (TEGECMOLIVER) 0.0 0.0 - 3.2 % 10/26/2024 4:43 PM EDT [facility] Whole Blood (Citrate) 10/26/2024 3:03 PM EDT 10/26/2024 3:10 PM EDT Jani Mooney MD LAB BLOOD ORDERABLES Final Resul t Performing Organization Address City/[facility] Co de Phone Number [facility] [address] * ECG 12 lead (MUSE) (10/26/2024 2:19 PM EDT) 10/26/2024 2:19 PM EDT Narrative MUSE - 10/27/2024 10:09 AM EDT Ventricular Rate: 105 BPM Atrial Rate: 105 BPM P-R Interval: 128 ms QRS Duration: 94 ms QT: 474 ms QTc: 626 ms R [place]: -37 degrees T [place]: 35 degrees Diagnosis Line: Critical Test Result: Long QTc ^ SINUS TACHYCARDIA ^ LEFT AXIS DEVIATION, LEFT ANTERIOR HEMIBLOCK ^ PROLONGED QT ^ ABNORMAL ECG ^ ^ Confirmed by MD HA, [facility] ([id number]) on 10/27/2024 10:09:25 AM Quinten Best MD ECG ORDERABLES Final Result Performing Organization Address City/[facility] Co de Phone Number MUSE * (ABNORMAL) POC Glucose Monitoring Device (10/26/2024 2:00 PM EDT) POC Glucose Monitoring Device 183(H) 70 - 100 mg/dL 10/26/2024 2:01 PM EDT [facility] Blood 10/26/2024 2:00 PM EDT 10/26/2024 2:01 PM EDT us Harvey Domínguez III, MD POINT OF CARE TEST ORDERABLES Final Result Performing Organization Address [facility] Co de Phone Number [facility] [address] * (ABNORMAL) POC Glucose Monitoring Device (10/26/2024 1:05 PM EDT) POC Glucose Monitoring Device 212(H) 70 - 100 mg/dL 10/26/2024 1:06 PM EDT [facility] Blood 10/26/2024 1:05 PM EDT 10/26/2024 1:06 PM EDT us Harvey Domínguez III, MD POINT OF CARE TEST ORDERABLES Final Result Performing Organization Address [facility] Co de Phone Number [facility] [address] [facility] * Transfuse Cryoprecipitate Has consent been obtained? Yes; Transfusion Rate: Per dept routine (10/26/2024 12:25 PM EDT) Result Tiburcio Sifuentes MD NURSING TREATMENT ORDERABLES - BLOOD ADMIN Final Result Performing Organization Address City/[facility] Co de Phone Number EXTERNAL * Transfuse Cryoprecipitate Has consent been obtained? Yes; Transfusion Rate: Per dept routine, 1 Units (10/26/2024 12:25 PM EDT) us Shay Sifuentes MD NURSING TREATMENT ORDERABLES - BLOOD ADMIN Final Result Performing Organization Address City/[facility]/ZIP Co de Phone Number EXTERNAL * (ABNORMAL) POC Glucose Monitoring Device (10/26/2024 12:06 PM EDT) POC Glucose Monitoring Device 226(H) 70 - 100 mg/dL 10/26/2024 12:07 PM EDT [facility] Blood 10/26/2024 12:0 6 PM EDT 10/26/2024 12:07 PM EDT Harvey Domínguez III, MD POINT OF CARE TEST ORDERABLES Final Result Performing Organization Address [facility] Co de Phone Number [facility] [address] [facility] * Transfuse Cryoprecipitate Transfusion Rate: Per dept routine (10/26/2024 12:01 PM EDT) John Pina MD NURSING TREATMENT ORDERABLES - BLOOD ADMIN Final Result Performing Organization Address City/[facility] Co de Phone Number EXTERNAL * Transfuse Cryoprecipitate Transfusion Rate: Per dept routine, 1 Units (10/26/2024 12:01 PM EDT) John Pina MD NURSING TREATMENT ORDERABLES - BLOOD ADMIN Final Result Performing Organization Address [facility] Co de Phone Number EXTERNAL * Lactic Acid (10/26/2024 10:48 AM EDT) Lactate 1.2 0.5 - 2.2 mmol/L 10/26/2024 11:27 AM EDT [facility] Plasma 10/26/2024 10:4 8 AM EDT 10/26/2024 10:53 AM EDT Kemar Sahni MD LAB BLOOD ORDERABLES Final Result Performing Organization Address [facility] Co de Phone Number [facility] [address] [facility] * Magnesium (10/26/2024 10:48 AM EDT) Magnesium 2.0 1.5 - 2.5 mg/dL 10/26/2024 11:26 AM EDT [facility] Plasma 10/26/2024 10:4 8 AM EDT 10/26/2024 10:53 AM EDT Kemar Sahni MD LAB BLOOD ORDERABLES Final Result [facility] [address] [facility] [place] [address], [facility] * (ABNORMAL) Hepatic Function Panel (10/26/2024 10:48 AM EDT) Total Bilirubin 5.9(H) 0.0 - 1.5 mg/dL 10/26/2024 11:26 AM EDT [facility] Bilirubin, Direct 4.74(H) 0.00 - 0.40 mg/dL 10/26/2024 11:26 AM EDT [facility] AST 872(H) 13 - 39 U/L 10/26/2024 11:26 AM EDT [facility] ALT 736(H) 7 - 52 U/L 10/26/2024 11:26 AM EDT [facility] Alkaline Phosphatase 56 36 - 125 U/L 10/26/2024 11:26 AM EDT [facility] Total Protein 3.5(L) 6.4 - 8.9 g/dL 10/26/2024 11:26 AM EDT [facility] Albumin 2.5(L) 3.5 - 5.7 g/dL 10/26/2024 11:26 AM EDT [facility] Bilirubin, Indirect 1.16(H) 0.00 - 1.10 mg/dL 10/26/2024 11:26 AM EDT [facility] Plasma 10/26/2024 10:4 8 AM EDT 10/26/2024 10:53 AM EDT us Kemar Sahni MD LAB BLOOD ORDERABLES Final Result [facility] [address] [facility] [place] [address], [facility] * (ABNORMAL) Protime-INR (10/26/2024 10:48 AM EDT) Protime 23.0(H) 12.1 - 15.1 seconds 10/26/2024 11:26 AM EDT [facility] INR 2.0(H) 0.9 - 1.1 10/26/2024 11:26 AM EDT [facility] Comment: RECOMMENDED THERAPEUTIC RANGES USING INR : Stable oral anticoagulant therapy: 2.0 - 3.0 Mechanical prosthetic heart valve: 2.5 - 3.5 Recurrent acute myocardial infarction: 2.5 - 3.5 Plasma 10/26/2024 10:4 8 AM EDT 10/26/2024 10:53 AM EDT Kemar Sahni MD LAB BLOOD ORDERABLES Final Result [facility] [address] [place] [address], [facility] * (ABNORMAL) CBC (10/26/2024 10:48 AM EDT) WBC 17.3(H) 3.8 - 10.8 10E3/uL 10/26/2024 11:14 AM EDT [facility] RBC 4.22 4.20 - 5.80 10E6/uL 10/26/2024 11:14 AM EDT [facility] Hemoglobin 12.8(L) 13.2 - 17.1 g/dL 10/26/2024 11:14 AM EDT [facility] Hematocrit 37.2(L) 38.5 - 50.0 % 10/26/2024 11:14 AM EDT [facility] MCV 88.3 80.0 - 100.0 fL 10/26/2024 11:14 AM EDT [facility] MCH 30.4 27.0 - 33.0 pg 10/26/2024 11:14 AM EDT [facility] MCHC 34.4 32.0 - 36.0 g/dL 10/26/2024 11:14 AM EDT [facility] RDW 20.8(H) 11.0 - 15.0 % 10/26/2024 11:14 AM EDT [facility] Platelets 109(L) 140 - 400 10E3/uL 10/26/2024 11:14 AM EDT [facility] MPV 7.5 7.5 - 11.5 fL 10/26/2024 11:14 AM EDT [facility] Whole Blood 10/26/2024 10:4 8 AM EDT 10/26/2024 10:53 AM EDT Kemar Sahni MD LAB BLOOD ORDERABLES Final Result [facility] [address] [place] [address], [facility] * (ABNORMAL) Blood gas, arterial (10/26/2024 10:48 AM EDT) O2 Sat, Arterial 97 10/26/2024 10:54 AM EDT [facility] FIO2 35% 10/26/2024 10:54 AM EDT [facility] pH, Arterial 7.37 7.35 - 7.45 10/26/2024 10:54 AM EDT [facility] pCO2, Arterial 36 35 - 45 mm Hg 10/26/2024 10:54 AM EDT [facility] pO2, Arterial 91 80 - 100 mm Hg 10/26/2024 10:54 AM EDT [facility] HCO3, Arterial 22 22 - 26 mmol/L 10/26/2024 10:54 AM EDT [facility] CO2 Content,Arteri al 22(L) 23 - 27 mmol/L 10/26/2024 10:54 AM EDT [facility] Base Excess, Arterial -3.9(L) -2.0 - 3.0 mmol/L 10/26/2024 10:54 AM EDT [facility] %HBO2, Arterial 94.8(L) 95.0 - 98.0 % 10/26/2024 10:54 AM EDT [facility] Carboxyhemoglo bin, Arterial 1.9 % 10/26/2024 10:54 AM EDT [facility] Comment: CARBOXYHEMOGLOBIN (CO) REFERENCE RANGES: Non-Smokers: <2 % Smokers: <8 % TOXIC: >20 % Methemoglobin, Arterial 0.7 0.0 - 1.5 % 10/26/2024 10:54 AM EDT [facility] Reduced hemoglobin, Arterial 2.5 0.0 - 5.0 % 10/26/2024 10:54 AM EDT [facility] Blood, Arterial 10/26/2024 1 0:48 AM EDT 10/26/2024 10:52 AM EDT us Shay Sifuentes MD LAB BLOOD ORDERABLES Final Resu lt [facility] [address] [place] [address], [facility] * (ABNORMAL) Renal Function Panel w/EGFR (10/26/2024 10:48 AM EDT) Sodium 139 133 - 146 mmol/L 10/26/2024 11:26 AM EDT [facility] Potassium 2.9(LL) 3.5 - 5.3 mmol/L 10/26/2024 11:26 AM EDT [facility] Comment:K CRITICAL VALUE WAS PREVIOUSLY CALLED Chloride 107 98 - 110 mmol/L 10/26/2024 11:26 AM EDT [facility] CO2 22 21 - 33 mmol/L 10/26/2024 11:26 AM EDT [facility] Anion Gap 10 3 - 16 mmol/L 10/26/2024 11:26 AM EDT [facility] BUN 61(H) 7 - 25 mg/dL 10/26/2024 11:26 AM EDT [facility] Creatinine 2.78(H) 0.60 - 1.30 mg/dL 10/26/2024 11:26 AM EDT [facility] Glucose 253(H) 70 - 100 mg/dL 10/26/2024 11:26 AM EDT [facility] Calcium 8.8 8.6 - 10.3 mg/dL 10/26/2024 11:26 AM EDT [facility] Phosphorus 4.1 2.1 - 4.7 mg/dL 10/26/2024 11:26 AM EDT [facility] Albumin 2.5(L) 3.5 - 5.7 g/dL 10/26/2024 11:26 AM EDT [facility] Osmolality, Calculated 314(H) 278 - 305 mOsm/kg 10/26/2024 11:26 AM EDT [facility] EGFR 28 10/26/2024 11:26 AM EDT [facility] Comment:As of 2021, the [...] ORDERABLES Final Result Performing Organization Address [facility]/ZIP Co de Phone Number [facility] [address] [place] [address]. [address] * (ABNORMAL) POC Glucose Monitoring Device (10/26/2024 10:47 AM EDT) POC Glucose Monitoring Device 234(H) 70 - 100 mg/dL 10/26/2024 10:48 AM EDT [facility] Blood 10/26/2024 10:4 7 AM EDT 10/26/2024 10:48 AM EDT Harvey Domínguez III, MD POINT OF CARE TEST ORDERABLES Final Result Performing Organization Address City/[facility]/ZIP Co de Phone Number [facility] [address] [place] [address]. [address] * CARISA Rhythm Strip - Scan (10/26/2024 10:45 AM EDT) Scanning Uchhim SCAN DOCS - NO RESULTS Final Res ult * (ABNORMAL) POC Glucose Monitoring Device (10/26/2024 10:08 AM EDT) POC Glucose Monitoring Device 235(H) 70 - 100 mg/dL 10/26/2024 10:09 AM EDT [facility] Blood 10/26/2024 10:0 8 AM EDT 10/26/2024 10:09 AM EDT Harvey Domínguez III, MD POINT OF CARE TEST ORDERABLES Final Result [facility] [address] [facility] * (ABNORMAL) POC Glucose Monitoring Device (10/26/2024 8:57 AM EDT) POC Glucose Monitoring Device 232(H) 70 - 100 mg/dL 10/26/2024 8:59 AM EDT [facility] Blood 10/26/2024 8:57 AM EDT 10/26/2024 8:58 AM EDT Harvey Domínguez III, MD POINT OF CARE TEST ORDERABLES Final Result Performing Organization Address [facility] Co de Phone Number [facility] [address] [facility] * ECG 12 lead (MUSE) (10/26/2024 8:16 AM EDT) 10/26/2024 8:16 AM EDT Narrative MUSE - 10/27/2024 10:09 AM EDT Ventricular Rate: 112 BPM QRS Duration: 96 ms QT: 452 ms QTc: 616 ms R [place]: -41 degrees T [place]: 40 degrees Diagnosis Line: Critical Test Result: Long QTc ^ SINUS TACHYCARDIA OCCASIONAL PREMATURE VENTRICULAR COMPLEXES ^ LEFT AXIS DEVIATION, LEFT ANTERIOR HEMIBLOCK ^ PROLONGED QT ^ ABNORMAL ECG ^ ^ Confirmed by MD HA, [facility] ([id number]) on 10/27/2024 10:09:18 AM Shay Sifuentes MD ECG ORDERABLES Final Result MUSE * X-ray Portable Chest (10/26/2024 8:13 [...] Support devices as above. Report Verified by: Dorno Castro MD at 10/26/2024 8:24 AM EDT Sveta Judge MD IMG DIAGNOSTIC IMAGING ORDERABL ES Final Result * (ABNORMAL) POC Glucose Monitoring Device (10/26/2024 7:59 AM EDT) POC Glucose Monitoring Device 229(H) 70 - 100 mg/dL 10/26/2024 8:01 AM EDT [facility] Blood 10/26/2024 7:59 AM EDT 10/26/2024 8:00 AM EDT us Harvey Domínguez III, MD POINT OF CARE TEST ORDERABLES Final Result Performing Organization Address City/[facility]/ZIP Co de Phone Number [facility] [address] [place] [address], [facility] * (ABNORMAL) TEG-Bypass/ECMO/Liver HN (Factor function, Platelet/Fibrin Clot Strength w/Clot Breakdown, Heparinase In All Channels) (10/26/2024 7:59 AM EDT) [facility] Citrated Kaolin Reaction Time (TEGECMOLIVER) 8.2 4.6 - 9.1 minutes 10/26/2024 10:36 AM EDT [facility] Citrated Kaolin W/Heparinase Reaction Time (TEGECMOLIVER) 8.1 4.3 - 8.3 minutes 10/26/2024 10:36 AM EDT [facility] Citrated Kaolin Maximum Amplitude (TEGECMOLIVER) 46.8(L) 52.0 - 69.0 mm 10/26/2024 10:36 AM EDT [facility] Citrated Functional Fibrinogen W/Heparinase Maximum Amplitude(TEGEC MOLIVER) 10.5(L) 15.0 - 34.0 mm 10/26/2024 10:36 AM EDT [facility] Citrated Rapid Teg W/Heparinase Maximum Amplitude (TEGECMOLIVER) 45.5(L) 53.0 - 69.0 mm 10/26/2024 10:36 AM EDT [facility] Citrated Kaolin w/Heparinase Percent Lysis (TEGECMOLIVER) 0.0 0.0 - 3.2 % 10/26/2024 10:36 AM EDT [facility] Whole Blood (Citrate) 10/26/2024 7:59 AM EDT 10/26/2024 8:05 AM EDT us Shay Sifuentes MD LAB BLOOD ORDERABLES Final Resu lt [facility] [address] * (ABNORMAL) POC Glucose Monitoring Device (10/26/2024 6:12 AM EDT) POC Glucose Monitoring Device 196(H) 70 - 100 mg/dL 10/26/2024 6:13 AM EDT [facility] Blood 10/26/2024 6:12 AM EDT 10/26/2024 6:13 AM EDT Harvey Domínguez III, MD POINT OF CARE TEST ORDERABLES Final Result Performing Organization Address City/[facility]/ZIP Co de Phone Number [facility] [address] [facility] * Lactic Acid (10/26/2024 6:10 AM EDT) Lactate 1.2 0.5 - 2.2 mmol/L 10/26/2024 6:39 AM EDT [facility] Plasma 10/26/2024 6:10 AM EDT 10/26/2024 6:19 AM EDT Sveta Judge MD LAB BLOOD ORDERABLES Final Resu lt Performing Organization Address [facility]/ZIP Co de Phone Number [facility] [address] * (ABNORMAL) Fibrinogen (10/26/2024 6:10 AM EDT) Fibrinogen 160(L) 218 - 406 mg/dL 10/26/2024 6:41 AM EDT [facility] Plasma 10/26/2024 6:10 AM EDT 10/26/2024 6:26 AM EDT Sveta Judge MD LAB BLOOD ORDERABLES Final Resu lt Performing Organization Address City/[facility]/ZIP Co de Phone Number [facility] [address] * (ABNORMAL) Protime-INR (10/26/2024 6:10 AM EDT) Protime 25.0(H) 12.1 - 15.1 seconds 10/26/2024 6:41 AM EDT [facility] INR 2.2(H) 0.9 - 1.1 10/26/2024 6:41 AM EDT [facility] Comment: RECOMMENDED THERAPEUTIC RANGES USING INR : Stable oral anticoagulant therapy: 2.0 - 3.0 Mechanical prosthetic heart valve: 2.5 - 3.5 Recurrent acute myocardial infarction: 2.5 - 3.5 Plasma 10/26/2024 6:10 AM EDT 10/26/2024 6:26 AM EDT Sveta Judge MD LAB BLOOD ORDERABLES Final Resu lt Performing Organization Address City/State/[facility] Co de Phone Number [facility] [address] * (ABNORMAL) Blood gas, arterial (10/26/2024 6:10 AM EDT) O2 Sat, Arterial 98 10/26/2024 6:23 AM EDT [facility] FIO2 60 10/26/2024 6:23 AM EDT [facility] pH, Arterial 7.27(L) 7.35 - 7.45 10/26/2024 6:23 AM EDT [facility] pCO2, Arterial 47(H) 35 - 45 mm Hg 10/26/2024 6:23 AM EDT [facility] pO2, Arterial 127(H) 80 - 100 mm Hg 10/26/2024 6:23 AM EDT [facility] HCO3, Arterial 21(L) 22 - 26 mmol/L 10/26/2024 6:23 AM EDT [facility] CO2 Content,Arteri al 23 23 - 27 mmol/L 10/26/2024 6:23 AM EDT [facility] Base Excess, Arterial -5.4(L) -2.0 - 3.0 mmol/L 10/26/2024 6:23 AM EDT [facility] %HBO2, Arterial 94.6(L) 95.0 - 98.0 % 10/26/2024 6:23 AM EDT [facility] Carboxyhemoglo bin, Arterial 2.0 % 10/26/2024 6:23 AM EDT [facility] Comment: CARBOXYHEMOGLOBIN (CO) REFERENCE RANGES: Non-Smokers: <2 % Smokers: <8 % TOXIC: >20 % Methemoglobin, Arterial 1.6(H) 0.0 - 1.5 % 10/26/2024 6:23 AM EDT [facility] Reduced hemoglobin, Arterial 1.8 0.0 - 5.0 % 10/26/2024 6:23 AM EDT [facility] Blood, Arterial 10/26/2024 6 :10 AM EDT 10/26/2024 6:20 AM EDT Sveta Judge MD LAB BLOOD ORDERABLES Final Resu lt Performing Organization Address [facility] Co de Phone Number [facility] [address] [facility] * Magnesium (10/26/2024 6:10 AM EDT) Magnesium 1.5 1.5 - 2.5 mg/dL 10/26/2024 7:09 AM EDT [facility] Plasma 10/26/2024 6:10 AM EDT 10/26/2024 6:23 AM EDT Sveta Judge MD LAB BLOOD ORDERABLES Final Resu lt Performing Organization Address City/[facility] Co de Phone Number [facility] [address] [facility] * (ABNORMAL) Hepatic Function Panel (10/26/2024 6:10 AM EDT) Total Bilirubin 6.2(H) 0.0 - 1.5 mg/dL 10/26/2024 7:11 AM EDT [facility] Bilirubin, Direct 5.26(H) 0.00 - 0.40 mg/dL 10/26/2024 7:11 AM EDT [facility] AST 1,071(H) 13 - 39 U/L 10/26/2024 7:11 AM EDT [facility] ALT 805(H) 7 - 52 U/L 10/26/2024 7:11 AM EDT [facility] Alkaline Phosphatase 55 36 - 125 U/L 10/26/2024 7:11 AM EDT [facility] Total Protein <3.0(L) 6.4 - 8.9 g/dL 10/26/2024 7:11 AM EDT [facility] Albumin 1.9(L) 3.5 - 5.7 g/dL 10/26/2024 7:11 AM EDT [facility] Bilirubin, Indirect 0.94 0.00 - 1.10 mg/dL 10/26/2024 7:11 AM EDT [facility] Plasma 10/26/2024 6:10 AM EDT 10/26/2024 6:23 AM EDT us Sveta Judge MD LAB BLOOD ORDERABLES Final Resu lt [facility] [address] * (ABNORMAL) Renal Function Panel w/EGFR (10/26/2024 6:10 AM EDT) Sodium 141 133 - 146 mmol/L 10/26/2024 7:09 AM EDT [facility] Potassium 2.8(LL) 3.5 - 5.3 mmol/L 10/26/2024 7:09 AM EDT [facility] Comment:Critical value previ ously called. Chloride 106 98 - 110 mmol/L 10/26/2024 7:09 AM EDT [facility] CO2 25 21 - 33 mmol/L 10/26/2024 7:09 AM EDT [facility] Anion Gap 10 3 - 16 mmol/L 10/26/2024 7:09 AM EDT [facility] BUN 57(H) 7 - 25 mg/dL 10/26/2024 7:09 AM EDT [facility] Creatinine 2.70(H) 0.60 - 1.30 mg/dL 10/26/2024 7:09 AM EDT [facility] Glucose 210(H) 70 - 100 mg/dL 10/26/2024 7:09 AM EDT [facility] Calcium 8.7 8.6 - 10.3 mg/dL 10/26/2024 7:09 AM EDT [facility] Phosphorus 5.4(H) 2.1 - 4.7 mg/dL 10/26/2024 7:09 AM EDT [facility] Albumin 1.9(L) 3.5 - 5.7 g/dL 10/26/2024 7:11 AM EDT [facility] Osmolality, Calculated 314(H) 278 - 305 mOsm/kg 10/26/2024 7:09 AM EDT [facility] EGFR 29 10/26/2024 7:09 AM EDT [facility] Comment:As of 2021, the [...] BLOOD ORDERABLES Final Resu lt [facility] [address] [place] [address], [facility] * (ABNORMAL) CBC (10/26/2024 6:10 AM EDT) WBC 14.8(H) 3.8 - 10.8 10E3/uL 10/26/2024 6:46 AM EDT [facility] RBC 4.04(L) 4.20 - 5.80 10E6/uL 10/26/2024 6:46 AM EDT [facility] Hemoglobin 12.7(L) 13.2 - 17.1 g/dL 10/26/2024 6:46 AM EDT [facility] Hematocrit 35.9(L) 38.5 - 50.0 % 10/26/2024 6:46 AM EDT [facility] MCV 89.0 80.0 - 100.0 fL 10/26/2024 6:46 AM EDT [facility] MCH 31.3 27.0 - 33.0 pg 10/26/2024 6:46 AM EDT [facility] MCHC 35.2 32.0 - 36.0 g/dL 10/26/2024 6:46 AM EDT [facility] RDW 19.7(H) 11.0 - 15.0 % 10/26/2024 6:46 AM EDT [facility] Platelets 107(L) 140 - 400 10E3/uL 10/26/2024 6:46 AM EDT [facility] MPV 7.4(L) 7.5 - 11.5 fL 10/26/2024 6:46 AM EDT [facility] Whole Blood 10/26/2024 6:10 AM EDT 10/26/2024 6:26 AM EDT Sveta Judge MD LAB BLOOD ORDERABLES Final Resu lt [facility] [address] [id number], [facility] * (ABNORMAL) POC INR (10/26/2024 5:16 AM EDT) Prothrombin Time INR, POC 2.4(H) 0.8 - 1.4 10/27/2024 6:51 AM EDT [facility] Comment: Test results may vary using different testing platforms. Serial result monitoring should be performed using the same methodology. RECOMMENDED THERAPEUTIC RANGES USING INR : Stable oral anticoagulant therapy: 2.0 - 3.0 Mechanical prosthetic heart valve: 2.5 - 3.5 Recurrent acute myocardial infarction: 2.5 - 3.5 Blood 10/26/2024 5:16 AM EDT 10/27/2024 6:51 AM EDT Harvey Domínguez III, MD POINT OF CARE TEST ORDERABLES Final Result Performing Organization Address City/[facility]/ZIP Co de Phone Number [facility] [address]. [address] * POC Sample Type (10/26/2024 5:14 AM EDT) POC Sample Type Arterial 10/26/2024 5:31 AM EDT [facility] Blood, Arterial 10/26/2024 5 :14 AM EDT 10/26/2024 5:31 AM EDT Harvey Domínguez III, MD POINT OF CARE TEST ORDERABLES Final Result Performing Organization Address City/[facility] Co de Phone Number [facility] [address] [facility]. [address] * POC Anion Gap (10/26/2024 5:14 AM EDT) POC Anion Gap, Arterial 12 3 - 16 mmol/L 10/26/2024 5:31 AM EDT [facility] Blood, Arterial 10/26/2024 5 :14 AM EDT 10/26/2024 5:31 AM EDT Harvey Domínguez III, MD POINT OF CARE TEST ORDERABLES Final Result [facility] [address] * POC Chloride (10/26/2024 5:14 AM EDT) POC Chloride 104 98 - 110 mmol/L 10/26/2024 5:31 AM EDT [facility] Blood, Arterial 10/26/2024 5 :14 AM EDT 10/26/2024 5:31 AM EDT Harvey Domínguez III, MD POINT OF CARE TEST ORDERABLES Final Result Performing Organization Address City/[facility]/ZIP Co de Phone Number [facility] [address] [place] [facility]. [address] * (ABNORMAL) POC Hemoglobin (10/26/2024 5:14 AM EDT) POC Hemoglobin 9.5(L) 14.0 - 18.0 g/dL 10/26/2024 5:31 AM EDT [facility] Blood, Arterial 10/26/2024 5 :14 AM EDT 10/26/2024 5:31 AM EDT Harvey Domínguez III, MD POINT OF CARE TEST ORDERABLES Final Result Performing Organization Address [facility] Co de Phone Number [address] * (ABNORMAL) POC hematocrit (10/26/2024 5:14 AM EDT) POC Hematocrit 28.0(L) 40 - 52 % 10/26/2024 5:31 AM EDT [facility] Blood, Arterial 10/26/2024 5 :14 AM EDT 10/26/2024 5:31 AM EDT Harvey Domínguez III, MD POINT OF CARE TEST ORDERABLES Final Result Performing Organization Address City/[facility] Co de Phone Number [place] [address] [address] [facility]. [address] * POC Lactate (10/26/2024 5:14 AM EDT) POC Lactate 1.76 0.50 - 2.20 mmol/L 10/26/2024 5:31 AM EDT [facility] Blood, Arterial 10/26/2024 5 :14 AM EDT 10/26/2024 5:31 AM EDT us Harvey Domínguez III, MD POINT OF CARE TEST ORDERABLES Final Result Performing Organization Address City/[facility]/ZIP Co de Phone Number [facility] [address] [facility]. [address] * (ABNORMAL) POC Glucose (10/26/2024 5:14 AM EDT) POC Glucose, Arterial 183(H) 70 - 100 mg/dL 10/26/2024 5:31 AM EDT [facility] Blood, Arterial 10/26/2024 5 :14 AM EDT 10/26/2024 5:31 AM EDT Harvey Domínguez III, MD POINT OF CARE TEST ORDERABLES Final Result Performing Organization Address [facility] Co de Phone Number [facility] [address] [facility]. [address] * (ABNORMAL) POC Ionized Calcium (10/26/2024 5:14 AM EDT) POC Ionized Calcium 5.50(H) 4.50 - 5.30 mg/dL 10/26/2024 5:31 AM EDT [facility] Blood, Arterial 10/26/2024 5 :14 AM EDT 10/26/2024 5:31 AM EDT Harvey Domínguez III, MD POINT OF CARE TEST ORDERABLES Final Result Performing Organization Address City/[facility] Co de Phone Number [facility]. [address] * (ABNORMAL) POC Potassium (10/26/2024 5:14 AM EDT) POC Potassium 2.8(LL) 3.5 - 5.3 mmol/L 10/26/2024 5:31 AM EDT [facility] Blood, Arterial 10/26/2024 5 :14 AM EDT 10/26/2024 5:31 AM EDT Harvey Domínguez III, MD POINT OF CARE TEST ORDERABLES Final Result Performing Organization Address City/[facility] Co de Phone Number [facility] [address] * POC Sodium (10/26/2024 5:14 AM EDT) POC Sodium 138 136 - 146 mmol/L 10/26/2024 5:31 AM EDT [facility] Blood, Arterial 10/26/2024 5 :14 AM EDT 10/26/2024 5:31 AM EDT Harvey Domínguez III, MD POINT OF CARE TEST ORDERABLES Final Result Performing Organization Address [facility] Co de Phone Number [facility] [address] [place] [facility]. [address] * POC TCO2 (10/26/2024 5:14 AM EDT) POC TCO2, Arterial 23 23 - 27 mmol/L 10/26/2024 5:31 AM EDT [facility] Blood, Arterial 10/26/2024 5 :14 AM EDT 10/26/2024 5:31 AM EDT us Harvey Domínguez III, MD POINT OF CARE TEST ORDERABLES Final Result Performing Organization Address [facility] Co de Phone Number [facility] [address] [place] [facility]. [address] * (ABNORMAL) POC O2 SAT (10/26/2024 5:14 AM EDT) POC O2 Saturation, Arterial 99(H) 95 - 98 % 10/26/2024 5:31 AM EDT [facility] Blood, Arterial 10/26/2024 5 :14 AM EDT 10/26/2024 5:31 AM EDT us Harvey Domínguez III, MD POINT OF CARE TEST ORDERABLES Final Result [facility] [address] * (ABNORMAL) POC Base Excess (10/26/2024 5:14 AM EDT) POC Base Excess, Arterial -5(L) -2 - 3 mmol/L 10/26/2024 5:31 AM EDT [facility] Blood, Arterial 10/26/2024 5 :14 AM EDT 10/26/2024 5:31 AM EDT us Harvey Domínguez III, MD POINT OF CARE TEST ORDERABLES Final Result Performing Organization Address City/[facility]/ZIP Co de Phone Number [facility] [address] * POC HCO3 (10/26/2024 5:14 AM EDT) POC HCO3, Arterial 22 22 - 26 mmol/L 10/26/2024 5:31 AM EDT [facility] Blood, Arterial 10/26/2024 5 :14 AM EDT 10/26/2024 5:31 AM EDT us Harvey Domínguez III, MD POINT OF CARE TEST ORDERABLES Final Result Performing Organization Address [facility]/ZIP Co de Phone Number [facility] [address] [facility]. [address] * (ABNORMAL) POC PO2 (10/26/2024 5:14 AM EDT) POC pO2, Arterial 133(H) 80 - 100 mm Hg 10/26/2024 5:31 AM EDT [facility] Blood, Arterial 10/26/2024 5 :14 AM EDT 10/26/2024 5:31 AM EDT us Harvey Domínguez III, MD POINT OF CARE TEST ORDERABLES Final Result [facility] [address] * POC PCO2 (10/26/2024 5:14 AM EDT) POC pCO2, Arterial 45 35 - 45 mm Hg 10/26/2024 5:31 AM EDT [facility] Blood, Arterial 10/26/2024 5 :14 AM EDT 10/26/2024 5:31 AM EDT Result [facility] Harvey Domínguez III, MD POINT OF CARE TEST ORDERABLES Final Result [facility] [address] * (ABNORMAL) POC pH (10/26/2024 5:14 AM EDT) POC pH, Arterial 7.29(L) 7.35 - 7.45 10/26/2024 5:31 AM EDT [facility] Blood, Arterial 10/26/2024 5 :14 AM EDT 10/26/2024 5:31 AM EDT Harvey Domínguez III, MD POINT OF CARE TEST ORDERABLES Final Result [facility] [address] [facility]. [address] * Transfuse Cryoprecipitate (10/26/2024 4:37 AM EDT) Result [facility] Eber Quinones MD NURSING TREATMENT ORDERA BLES - BLOOD ADMIN Final Result * Transfuse Cryoprecipitate (10/26/2024 4:37 AM EDT) Eber Quinones MD NURSING TREATMENT ORDERA BLES - BLOOD ADMIN Final Result * (ABNORMAL) POC INR (10/26/2024 4:27 AM EDT) Prothrombin Time INR, POC 2.3(H) 0.8 - 1.4 10/27/2024 6:51 AM EDT [facility] Comment: Test results may [...] CARE TEST ORDERABLES Final Result [facility] [address] * POC Sample Type (10/26/2024 4:24 AM EDT) POC Sample Type Arterial 10/26/2024 5:09 AM EDT [facility] Blood, Arterial 10/26/2024 4 :24 AM EDT 10/26/2024 5:09 AM EDT us Harvey Domínguez III, MD POINT OF CARE TEST ORDERABLES Final Result Performing Organization Address City/[facility]/ZIP Co de Phone Number [facility] [address] * POC Anion Gap (10/26/2024 4:24 AM EDT) POC Anion Gap, Arterial 14 3 - 16 mmol/L 10/26/2024 5:09 AM EDT [facility] Blood, Arterial 10/26/2024 4 :24 AM EDT 10/26/2024 5:09 AM EDT us Harvey Domínguez III, MD POINT OF CARE TEST ORDERABLES Final Result Performing Organization Address City/[facility]/ZIP Co de Phone Number [facility] [address] * POC Chloride (10/26/2024 4:24 AM EDT) POC Chloride 103 98 - 110 mmol/L 10/26/2024 5:09 AM EDT [facility] Blood, Arterial 10/26/2024 4 :24 AM EDT 10/26/2024 5:09 AM EDT us Harvey Domínguez III, MD POINT OF CARE TEST ORDERABLES Final Result [facility] [address] [facility]. [address] * (ABNORMAL) POC Hemoglobin (10/26/2024 4:24 AM EDT) POC Hemoglobin 10.3(L) 14.0 - 18.0 g/dL 10/26/2024 5:09 AM EDT [facility] Blood, Arterial 10/26/2024 4 :24 AM EDT 10/26/2024 5:09 AM EDT us Harvey Domínguez III, MD POINT OF CARE TEST ORDERABLES Final Result Performing Organization Address City/[facility] Co de Phone Number [facility] [address] [place] [address]. [address] * (ABNORMAL) POC hematocrit (10/26/2024 4:24 AM EDT) POC Hematocrit 30.0(L) 40 - 52 % 10/26/2024 5:09 AM EDT [facility] Blood, Arterial 10/26/2024 4 :24 AM EDT 10/26/2024 5:09 AM EDT us Harvey Domínguez III, MD POINT OF CARE TEST ORDERABLES Final Result Performing Organization Address City/[facility] Co de Phone Number [facility] [address] [facility]. [address] * (ABNORMAL) POC Lactate (10/26/2024 4:24 AM EDT) POC Lactate 2.43(H) 0.50 - 2.20 mmol/L 10/26/2024 5:09 AM EDT [facility] Blood, Arterial 10/26/2024 4 :24 AM EDT 10/26/2024 5:09 AM EDT us Harvey Domínguez III, MD POINT OF CARE TEST ORDERABLES Final Result Performing Organization Address City/[facility] Co de Phone Number [facility] [address] [place] [address]. [address] * (ABNORMAL) POC Glucose (10/26/2024 4:24 AM EDT) POC Glucose, Arterial 185(H) 70 - 100 mg/dL 10/26/2024 5:09 AM EDT [facility] Blood, Arterial 10/26/2024 4 :24 AM EDT 10/26/2024 5:09 AM EDT us Harvey Domínguez III, MD POINT OF CARE TEST ORDERABLES Final Result Performing Organization Address [facility] Co de Phone Number [address] * POC Ionized Calcium (10/26/2024 4:24 AM EDT) POC Ionized Calcium 5.20 4.50 - 5.30 mg/dL 10/26/2024 5:09 AM EDT [facility] Blood, Arterial 10/26/2024 4 :24 AM EDT 10/26/2024 5:09 AM EDT us Harvey Domínguez III, MD POINT OF CARE TEST ORDERABLES Final Result Performing Organization Address [facility] Co de Phone Number [facility] [address] [place] [address]. [address] * (ABNORMAL) POC Potassium (10/26/2024 4:24 AM EDT) POC Potassium 2.8(LL) 3.5 - 5.3 mmol/L 10/26/2024 5:09 AM EDT [facility] Blood, Arterial 10/26/2024 4 :24 AM EDT 10/26/2024 5:09 AM EDT us Harvey Domínguez III, MD POINT OF CARE TEST ORDERABLES Final Result [facility] [address] [place] [address]. [address] * POC Sodium (10/26/2024 4:24 AM EDT) POC Sodium 139 136 - 146 mmol/L 10/26/2024 5:09 AM EDT [facility] Blood, Arterial 10/26/2024 4 :24 AM EDT 10/26/2024 5:09 AM EDT us Harvey Domínguez III, MD POINT OF CARE TEST ORDERABLES Final Result Performing Organization Address [facility] Co de Phone Number [facility] [address] [facility]. [address] * POC TCO2 (10/26/2024 4:24 AM EDT) POC TCO2, Arterial 23 23 - 27 mmol/L 10/26/2024 5:09 AM EDT [facility] Blood, Arterial 10/26/2024 4 :24 AM EDT 10/26/2024 5:09 AM EDT Harvey Domínguez III, MD POINT OF CARE TEST ORDERABLES Final Result Performing Organization Address City/[facility] Co de Phone Number [facility] [address] [place] [address]. [address] * POC O2 SAT (10/26/2024 4:24 AM EDT) POC O2 Saturation, Arterial 96 95 - 98 % 10/26/2024 5:09 AM EDT [facility] Blood, Arterial 10/26/2024 4 :24 AM EDT 10/26/2024 5:09 AM EDT us Harvey Domínguez III, MD POINT OF CARE TEST ORDERABLES Final Result [facility] [address] [facility]. [address] * (ABNORMAL) POC Base Excess (10/26/2024 4:24 AM EDT) POC Base Excess, Arterial -5(L) -2 - 3 mmol/L 10/26/2024 5:09 AM EDT [facility] Blood, Arterial 10/26/2024 4 :24 AM EDT 10/26/2024 5:09 AM EDT us Harvey Domínguez III, MD POINT OF CARE TEST ORDERABLES Final Result Performing Organization Address City/[facility]/ZIP Co de Phone Number [facility] [address] * POC HCO3 (10/26/2024 4:24 AM EDT) POC HCO3, Arterial 22 22 - 26 mmol/L 10/26/2024 5:09 AM EDT [facility] Blood, Arterial 10/26/2024 4 :24 AM EDT 10/26/2024 5:09 AM EDT us Harvey Domínguez III, MD POINT OF CARE TEST ORDERABLES Final Result [facility] [address] * POC PO2 (10/26/2024 4:24 AM EDT) POC pO2, Arterial 93 80 - 100 mm Hg 10/26/2024 5:09 AM EDT [facility] Blood, Arterial 10/26/2024 4 :24 AM EDT 10/26/2024 5:09 AM EDT Harvey Domínguez III, MD POINT OF CARE TEST ORDERABLES Final Result Performing Organization Address [facility] Co de Phone Number [facility] [address] [facility]. [address] * POC PCO2 (10/26/2024 4:24 AM EDT) POC pCO2, Arterial 44 35 - 45 mm Hg 10/26/2024 5:09 AM EDT [facility] Blood, Arterial 10/26/2024 4 :24 AM EDT 10/26/2024 5:09 AM EDT Harvey Domínguez III, MD POINT OF CARE TEST ORDERABLES Final Result Performing Organization Address [facility] de Phone Number [facility] [address] [facility]. [address] * (ABNORMAL) POC pH (10/26/2024 4:24 AM EDT) POC pH, Arterial 7.30(L) 7.35 - 7.45 10/26/2024 5:09 AM EDT [facility] Blood, Arterial 10/26/2024 4 :24 AM EDT 10/26/2024 5:09 AM EDT Harvey Domínguez III, MD POINT OF CARE TEST ORDERABLES Final Result Performing Organization Address [facility] Co de Phone Number [facility] [address] [place] [facility]. [address] * Transfuse Platelets (10/26/2024 4:14 AM EDT) Ben Blake MD NURSING TREATMENT ORDERABLES - BLOOD ADMIN Final Result * Transfuse Fresh Frozen Plasma (10/26/2024 3:47 AM EDT) Ben Blake MD NURSING TREATMENT ORDERABLES - BLOOD ADMIN Final Result * (ABNORMAL) POC INR (10/26/2024 3:34 AM EDT) Prothrombin Time INR, POC 2.8(H) 0.8 - 1.4 10/27/2024 6:51 AM EDT [facility] Comment: Test results may [...] TEST ORDERABLES Final Result Performing Organization Address City/[facility] Co de Phone Number [facility] [address] [place] [address]. [address] * POC Sample Type (10/26/2024 3:31 AM EDT) POC Sample Type Arterial 10/26/2024 4:11 AM EDT [facility] Blood, Arterial 10/26/2024 3 :31 AM EDT 10/26/2024 4:11 AM EDT us Harvey Domínguez III, MD POINT OF CARE TEST ORDERABLES Final Result Performing Organization Address City/State/[facility] Co de Phone Number [facility] [address] [place] [address]. [address] * POC Anion Gap (10/26/2024 3:31 AM EDT) POC Anion Gap, Arterial 15 3 - 16 mmol/L 10/26/2024 4:11 AM EDT [facility] Blood, Arterial 10/26/2024 3 :31 AM EDT 10/26/2024 4:11 AM EDT us Harvey Domínguez III, MD POINT OF CARE TEST ORDERABLES Final Result Performing Organization Address [facility] Co de Phone Number [facility] [address] * POC Chloride (10/26/2024 3:31 AM EDT) POC Chloride 105 98 - 110 mmol/L 10/26/2024 4:11 AM EDT [facility] Blood, Arterial 10/26/2024 3 :31 AM EDT 10/26/2024 4:11 AM EDT us Harvey Domínguez III, MD POINT OF CARE TEST ORDERABLES Final Result Performing Organization Address [facility] de Phone Number [facility] [address] * (ABNORMAL) POC Hemoglobin (10/26/2024 3:31 AM EDT) POC Hemoglobin 9.7(L) 14.0 - 18.0 g/dL 10/26/2024 4:11 AM EDT [facility] Blood, Arterial 10/26/2024 3 :31 AM EDT 10/26/2024 4:11 AM EDT us Harvey Domínguez III, MD POINT OF CARE TEST ORDERABLES Final Result Performing Organization Address [facility] de Phone Number [facility] [address] [facility]. [address] * (ABNORMAL) POC hematocrit (10/26/2024 3:31 AM EDT) POC Hematocrit 29.0(L) 40 - 52 % 10/26/2024 4:11 AM EDT [facility] Blood, Arterial 10/26/2024 3 :31 AM EDT 10/26/2024 4:11 AM EDT us Harvey Domínguez III, MD POINT OF CARE TEST ORDERABLES Final Result Performing Organization Address City/[facility]/ZIP Co de Phone Number [facility] [address] * (ABNORMAL) POC Lactate (10/26/2024 3:31 AM EDT) POC Lactate 3.54(H) 0.50 - 2.20 mmol/L 10/26/2024 4:11 AM EDT [facility] Blood, Arterial 10/26/2024 3 :31 AM EDT 10/26/2024 4:11 AM EDT us Harvey Domínguez III, MD POINT OF CARE TEST ORDERABLES Final Result Performing Organization Address [facility] Co de Phone Number [facility] [address] [place] [facility]. [address] * (ABNORMAL) POC Glucose (10/26/2024 3:31 AM EDT) POC Glucose, Arterial 153(H) 70 - 100 mg/dL 10/26/2024 4:11 AM EDT [facility] Blood, Arterial 10/26/2024 3 :31 AM EDT 10/26/2024 4:11 AM EDT us Harvey Domínguez III, MD POINT OF CARE TEST ORDERABLES Final Result Performing Organization Address [facility] Co de Phone Number [facility] [address] [facility]. [address] * POC Ionized Calcium (10/26/2024 3:31 AM EDT) POC Ionized Calcium 5.10 4.50 - 5.30 mg/dL 10/26/2024 4:11 AM EDT [facility] Blood, Arterial 10/26/2024 3 :31 AM EDT 10/26/2024 4:11 AM EDT us Harvey Doímnguez III, MD POINT OF CARE TEST ORDERABLES Final Result Performing Organization Address City/[facility]/ZIP Co de Phone Number [facility] [address] * (ABNORMAL) POC Potassium (10/26/2024 3:31 AM EDT) POC Potassium 2.6(LL) 3.5 - 5.3 mmol/L 10/26/2024 4:11 AM EDT [facility] Blood, Arterial 10/26/2024 3 :31 AM EDT 10/26/2024 4:11 AM EDT us Harvey Domínguez III, MD POINT OF CARE TEST ORDERABLES Final Result [facility] [address] * POC Sodium (10/26/2024 3:31 AM EDT) POC Sodium 138 136 - 146 mmol/L 10/26/2024 4:11 AM EDT [facility] Blood, Arterial 10/26/2024 3 :31 AM EDT 10/26/2024 4:11 AM EDT us Harvey Domínguez III, MD POINT OF CARE TEST ORDERABLES Final Result Performing Organization Address City/[facility]/ZIP Co de Phone Number [facility] [address] * (ABNORMAL) POC TCO2 (10/26/2024 3:31 AM EDT) POC TCO2, Arterial 19(L) 23 - 27 mmol/L 10/26/2024 4:11 AM EDT [facility] Blood, Arterial 10/26/2024 3 :31 AM EDT 10/26/2024 4:11 AM EDT us Harvey Domínguez III, MD POINT OF CARE TEST ORDERABLES Final Result [facility] [address] * POC O2 SAT (10/26/2024 3:31 AM EDT) POC O2 Saturation, Arterial 97 95 - 98 % 10/26/2024 4:11 AM EDT [facility] Blood, Arterial 10/26/2024 3 :31 AM EDT 10/26/2024 4:11 AM EDT us Harvey Domínguez III, MD POINT OF CARE TEST ORDERABLES Final Result [facility] [address] * (ABNORMAL) POC Base Excess (10/26/2024 3:31 AM EDT) POC Base Excess, Arterial -9(L) -2 - 3 mmol/L 10/26/2024 4:11 AM EDT [facility] Blood, Arterial 10/26/2024 3 :31 AM EDT 10/26/2024 4:11 AM EDT us Harvey Domínguez III, MD POINT OF CARE TEST ORDERABLES Final Result Performing Organization Address City/[facility]/ZIP Co de Phone Number [facility] [address] * (ABNORMAL) POC HCO3 (10/26/2024 3:31 AM EDT) POC HCO3, Arterial 18(L) 22 - 26 mmol/L 10/26/2024 4:11 AM EDT [facility] Blood, Arterial 10/26/2024 3 :31 AM EDT 10/26/2024 4:11 AM EDT us Harvey Domínguez III, MD POINT OF CARE TEST ORDERABLES Final Result [facility] [address] * (ABNORMAL) POC PO2 (10/26/2024 3:31 AM EDT) POC pO2, Arterial 104(H) 80 - 100 mm Hg 10/26/2024 4:11 AM EDT [facility] Blood, Arterial 10/26/2024 3 :31 AM EDT 10/26/2024 4:11 AM EDT us Harvey Domínguez III, MD POINT OF CARE TEST ORDERABLES Final Result Performing Organization Address City/[facility] Co de Phone Number [facility] [address] * POC PCO2 (10/26/2024 3:31 AM EDT) POC pCO2, Arterial 42 35 - 45 mm Hg 10/26/2024 4:11 AM EDT [facility] Blood, Arterial 10/26/2024 3 :31 AM EDT 10/26/2024 4:11 AM EDT us Harvey Domínguez III, MD POINT OF CARE TEST ORDERABLES Final Result Performing Organization Address [facility] Co de Phone Number [facility] [address] [facility] * (ABNORMAL) POC pH (10/26/2024 3:31 AM EDT) POC pH, Arterial 7.24(L) 7.35 - 7.45 10/26/2024 4:11 AM EDT [facility] Blood, Arterial 10/26/2024 3 :31 AM EDT 10/26/2024 4:11 AM EDT us Harvey Domínguez III, MD POINT OF CARE TEST ORDERABLES Final Result Performing Organization Address City/[facility] Co de Phone Number [facility] [address] [facility]. [address] * (ABNORMAL) TEG-Global With Lysis (Baseline TEG with LY30, Will NOT Show Heparin Effect) (53:31 AM EDT) Citrated Kaolin Reaction Time (TEGLYSIS) 6.8 4.6 - 9.1 minutes 10/26/2024 5:02 AM EDT [facility] Citrated Rapid Teg Maximum Amplitude (TEGLYSIS) <40.0(L) 52.0 - 70.0 mm 10/26/2024 5:02 AM EDT [facility] Citrated Functional Fibrinogen Maximum Amplitude (TEGLYSIS) <4.0(L) 15.0 - 32.0 mm 10/26/2024 5:02 AM EDT [facility] Citrated Kaolin Percent Lysis (TEGLYSIS) 1.4 0.0 - 2.6 % 10/26/2024 5:02 AM EDT [facility] Whole Blood (Citrate) 10/26/2024 3:31 AM EDT 10/26/2024 3:40 AM EDT us Eber Quinones MD LAB BLOOD ORDERABLES Fin al Result Performing Organization Address City/State/[facility] Co de Phone Number [facility] [address] * (ABNORMAL) CBC (10/26/2024 3:31 AM EDT) WBC 9.5 3.8 - 10.8 10E3/uL 10/26/2024 3:48 AM EDT [facility] RBC 3.68(L) 4.20 - 5.80 10E6/uL 10/26/2024 3:48 AM EDT [facility] Hemoglobin 11.5(L) 13.2 - 17.1 g/dL 10/26/2024 3:48 AM EDT [facility] LAB Hematocrit 33.0(L) 38.5 - 50.0 % 10/26/2024 3:48 AM EDT [facility] MCV 89.6 80.0 - 100.0 fL 10/26/2024 3:48 AM EDT [facility] MCH 31.1 27.0 - 33.0 pg 10/26/2024 3:48 AM EDT [facility] MCHC 34.8 32.0 - 36.0 g/dL 10/26/2024 3:48 AM EDT [facility] RDW 19.3(H) 11.0 - 15.0 % 10/26/2024 3:48 AM EDT [facility] Platelets 67(L) 140 - 400 10E3/uL 10/26/2024 3:48 AM EDT [facility] MPV 7.9 7.5 - 11.5 fL 10/26/2024 3:48 AM EDT [facility] Whole Blood 10/26/2024 3:31 AM EDT 10/26/2024 3:40 AM EDT Eber Quinones MD LAB BLOOD ORDERABLES Fin al Result Performing Organization Address [facility] de Phone Number [facility] [address] [facility] * (ABNORMAL) Protime-INR (10/26/2024 3:31 AM EDT) Protime 27.0(H) 12.1 - 15.1 seconds 10/26/2024 3:51 AM EDT [facility] INR 2.4(H) 0.9 - 1.1 10/26/2024 3:51 AM EDT [facility] Comment: RECOMMENDED THERAPEUTIC RANGES USING INR : Stable oral anticoagulant therapy: 2.0 - 3.0 Mechanical prosthetic heart valve: 2.5 - 3.5 Recurrent acute myocardial infarction: 2.5 - 3.5 Plasma 10/26/2024 3:31 AM EDT 10/26/2024 3:40 AM EDT Eber Quinones MD LAB BLOOD ORDERABLES Fin al Result Performing Organization Address [facility] Co de Phone Number [facility] [address] [facility] * (ABNORMAL) Fibrinogen (10/26/2024 3:31 AM EDT) Fibrinogen 104(L) 218 - 406 mg/dL 10/26/2024 3:56 AM EDT [facility] Plasma 10/26/2024 3:31 AM EDT 10/26/2024 3:40 AM EDT us Eber Quinones MD LAB BLOOD ORDERABLES Fin al Result [facility] [address] [place] [address], [facility] * Transfuse Fresh Frozen Plasma (10/26/2024 [...] Transfuse RBC (10/26/2024 1:45 AM EDT) Result Tiburcio Blake MD NURSING TREATMENT ORDERABLES - BLOOD ADMIN Final Result * Transfuse RBC (10/26/2024 1:45 AM EDT) Result Tiburcio Blake MD NURSING TREATMENT ORDERABLES - BLOOD ADMIN Final Result * (ABNORMAL) POC INR (10/26/2024 1:43 AM EDT) Prothrombin Time INR, POC 1.9(H) 0.8 - 1.4 10/27/2024 6:51 AM EDT [facility] Comment: Test results may vary using different testing platforms. Serial result monitoring should be performed using the same methodology. RECOMMENDED THERAPEUTIC RANGES USING INR : Stable oral anticoagulant therapy: 2.0 - 3.0 Mechanical prosthetic heart valve: 2.5 - 3.5 Recurrent acute myocardial infarction: 2.5 - 3.5 Blood 10/26/2024 1:43 AM EDT 10/27/2024 6:51 AM EDT Result [facility] us Harvey Domínguez III, MD POINT OF CARE TEST ORDERABLES Final Result Performing Organization Address [facility]/State/[facility] Co de Phone Number [facility] [address] [phone], [facility] * Transfuse Fresh Frozen Plasma (10/26/2024 1:41 AM EDT) Result Tiburcio Blake MD NURSING TREATMENT ORDERABLES - BLOOD ADMIN Final Result * Transfuse RBC (10/26/2024 1:40 AM EDT) Result Tiburcio Blake MD NURSING TREATMENT ORDERABLES - BLOOD ADMIN Final Result * POC Sample Type (10/26/2024 1:40 AM EDT) POC Sample Type Arterial 10/26/2024 2:32 AM EDT [facility] Blood, Arterial 10/26/2024 1 :40 AM EDT 10/26/2024 2:32 AM EDT Result [facility] us Harvey Domínguez III, MD POINT OF CARE TEST ORDERABLES Final Result Performing Organization Address City/[facility]/ZIP Co de Phone Number [facility] [address] * POC Anion Gap (10/26/2024 1:40 AM EDT) POC Anion Gap, Arterial 13 3 - 16 mmol/L 10/26/2024 2:32 AM EDT [facility] Blood, Arterial 10/26/2024 1 :40 AM EDT 10/26/2024 2:32 AM EDT us Harvey Domínguez III, MD POINT OF CARE TEST ORDERABLES Final Result Performing Organization Address [facility] Co de Phone Number [facility] [address] * POC Chloride (10/26/2024 1:40 AM EDT) POC Chloride 104 98 - 110 mmol/L 10/26/2024 2:32 AM EDT [facility] Blood, Arterial 10/26/2024 1 :40 AM EDT 10/26/2024 2:32 AM EDT us Harvey Domínguez III, MD POINT OF CARE TEST ORDERABLES Final Result Performing Organization Address [facility] Co de Phone Number [facility] [address] * (ABNORMAL) POC Hemoglobin (10/26/2024 1:40 AM EDT) POC Hemoglobin 7.4(L) 14.0 - 18.0 g/dL 10/26/2024 2:32 AM EDT [facility] Blood, Arterial 10/26/2024 1 :40 AM EDT 10/26/2024 2:32 AM EDT us Harvey Domínguez III, MD POINT OF CARE TEST ORDERABLES Final Result [facility] [address] * (ABNORMAL) POC hematocrit (10/26/2024 1:40 AM EDT) POC Hematocrit 22.0(L) 40 - 52 % 10/26/2024 2:32 AM EDT [facility] Blood, Arterial 10/26/2024 1 :40 AM EDT 10/26/2024 2:32 AM EDT us Harvey Domínguez III, MD POINT OF CARE TEST ORDERABLES Final Result [facility] [address] * (ABNORMAL) POC Lactate (10/26/2024 1:40 AM EDT) POC Lactate 2.30(H) 0.50 - 2.20 mmol/L 10/26/2024 2:32 AM EDT [facility] Blood, Arterial 10/26/2024 1 :40 AM EDT 10/26/2024 2:32 AM EDT us Harvey Domínguez III, MD POINT OF CARE TEST ORDERABLES Final Result Performing Organization Address City/[facility]/ZIP Co de Phone Number [facility] [address] [facility]. [address] * (ABNORMAL) POC Glucose (10/26/2024 1:40 AM EDT) POC Glucose, Arterial 116(H) 70 - 100 mg/dL 10/26/2024 2:32 AM EDT [facility] Blood, Arterial 10/26/2024 1 :40 AM EDT 10/26/2024 2:32 AM EDT us Harvey Domínguez III, MD POINT OF CARE TEST ORDERABLES Final Result [facility] [address] * (ABNORMAL) POC Ionized Calcium (10/26/2024 1:40 AM EDT) POC Ionized Calcium 4.10(L) 4.50 - 5.30 mg/dL 10/26/2024 2:32 AM EDT [facility] Blood, Arterial 10/26/2024 1 :40 AM EDT 10/26/2024 2:32 AM EDT us Harvey Domínguez III, MD POINT OF CARE TEST ORDERABLES Final Result [facility] [address] * (ABNORMAL) POC Potassium (10/26/2024 1:40 AM EDT) POC Potassium 2.6(LL) 3.5 - 5.3 mmol/L 10/26/2024 2:32 AM EDT [facility] Blood, Arterial 10/26/2024 1 :40 AM EDT 10/26/2024 2:32 AM EDT us Harvey Domínguez III, MD POINT OF CARE TEST ORDERABLES Final Result Performing Organization Address City/[facility]/ZIP Co de Phone Number [facility] [address] * (ABNORMAL) POC Sodium (10/26/2024 1:40 AM EDT) POC Sodium 135(L) 136 - 146 mmol/L 10/26/2024 2:32 AM EDT [facility] Blood, Arterial 10/26/2024 1 :40 AM EDT 10/26/2024 2:32 AM EDT us Harvey Domínguez III, MD POINT OF CARE TEST ORDERABLES Final Result [facility] [address] * (ABNORMAL) POC TCO2 (10/26/2024 1:40 AM EDT) POC TCO2, Arterial 19(L) 23 - 27 mmol/L 10/26/2024 2:32 AM EDT [facility] Blood, Arterial 10/26/2024 1 :40 AM EDT 10/26/2024 2:32 AM EDT Harvey Domínguez III, MD POINT OF CARE TEST ORDERABLES Final Result [facility] [address] * (ABNORMAL) POC O2 SAT (10/26/2024 1:40 AM EDT) POC O2 Saturation, Arterial 99(H) 95 - 98 % 10/26/2024 2:32 AM EDT [facility] Blood, Arterial 10/26/2024 1 :40 AM EDT 10/26/2024 2:32 AM EDT us Harvey Domínguez III, MD POINT OF CARE TEST ORDERABLES Final Result [facility] [address] * (ABNORMAL) POC Base Excess (10/26/2024 1:40 AM EDT) POC Base Excess, Arterial -7(L) -2 - 3 mmol/L 10/26/2024 2:32 AM EDT [facility] Blood, Arterial 10/26/2024 1 :40 AM EDT 10/26/2024 2:32 AM EDT us Harvey Domínguez III, MD POINT OF CARE TEST ORDERABLES Final Result [facility] [address] * (ABNORMAL) POC HCO3 (10/26/2024 1:40 AM EDT) POC HCO3, Arterial 18(L) 22 - 26 mmol/L 10/26/2024 2:32 AM EDT [facility] Blood, Arterial 10/26/2024 1 :40 AM EDT 10/26/2024 2:32 AM EDT us Harvey Domínguez III, MD POINT OF CARE TEST ORDERABLES Final Result [facility] [address] * (ABNORMAL) POC PO2 (10/26/2024 1:40 AM EDT) POC pO2, Arterial 145(H) 80 - 100 mm Hg 10/26/2024 2:32 AM EDT [facility] Blood, Arterial 10/26/2024 1 :40 AM EDT 10/26/2024 2:32 AM EDT us Harvey Domínguez III, MD POINT OF CARE TEST ORDERABLES Final Result Performing Organization Address City/[facility]/ZIP Co de Phone Number [facility] [address] [facility]. [address] * (ABNORMAL) POC PCO2 (10/26/2024 1:40 AM EDT) POC pCO2, Arterial 33(L) 35 - 45 mm Hg 10/26/2024 2:32 AM EDT [facility] Blood, Arterial 10/26/2024 1 :40 AM EDT 10/26/2024 2:32 AM EDT us Harvey Domínguez III, MD POINT OF CARE TEST ORDERABLES Final Result [facility] [address] * POC pH (10/26/2024 1:40 AM EDT) POC pH, Arterial 7.35 7.35 - 7.45 10/26/2024 2:32 AM EDT [facility] Blood, Arterial 10/26/2024 1 :40 AM EDT 10/26/2024 2:32 AM EDT us Harvey Domínguez III, MD POINT OF CARE TEST ORDERABLES Final Result Performing Organization Address [facility] Co de Phone Number [facility] [address] [facility] * Transfuse Fresh Frozen Plasma (10/26/2024 1:20 AM EDT) us Ben Blake MD NURSING TREATMENT ORDERABLES - BLOOD ADMIN Final Result * Transfuse RBC (10/26/2024 12:56 AM EDT) us Ben Blake MD NURSING TREATMENT ORDERABLES - BLOOD ADMIN Final Result * (ABNORMAL) POC INR (10/26/2024 12:41 AM EDT) Prothrombin Time INR, POC 2.0(H) 0.8 - 1.4 10/27/2024 6:51 AM EDT [facility] Comment: Test results may [...] TEST ORDERABLES Final Result Performing Organization Address [facility] Co de Phone Number [facility] [address] [facility] * POC Sample Type (10/26/2024 12:39 AM EDT) Pathologist [facility] POC Sample Type Arterial 10/26/2024 1:38 AM EDT [facility] Blood, Arterial 10/26/2024 1 2:39 AM EDT 10/26/2024 1:38 AM EDT us Harvey Domníguez III, MD POINT OF CARE TEST ORDERABLES Final Result Performing Organization Address City/[facility]/ZIP Co de Phone Number [facility] [address] [facility]. [address] * POC Anion Gap (10/26/2024 12:39 AM EDT) [facility] POC Anion Gap, Arterial 13 3 - 16 mmol/L 10/26/2024 1:38 AM EDT [facility] Blood, Arterial 10/26/2024 1 2:39 AM EDT 10/26/2024 1:38 AM EDT us Harvey Domínguez III, MD POINT OF CARE TEST ORDERABLES Final Result Performing Organization Address [facility] Co de Phone Number [facility] [address] [facility]. [address] * POC Chloride (10/26/2024 12:39 AM EDT) [facility] POC Chloride 103 98 - 110 mmol/L 10/26/2024 1:38 AM EDT [facility] Blood, Arterial 10/26/2024 1 2:39 AM EDT 10/26/2024 1:38 AM EDT us Harvey Domínguez III, MD POINT OF CARE TEST ORDERABLES Final Result Performing Organization Address City/[facility] Co de Phone Number [facility] [address] [facility]. [address] * (ABNORMAL) POC Hemoglobin (10/26/2024 12:39 AM EDT) [facility] POC Hemoglobin 7.9(L) 14.0 - 18.0 g/dL 10/26/2024 1:38 AM EDT [facility] Blood, Arterial 10/26/2024 1 2:39 AM EDT 10/26/2024 1:38 AM EDT us Harvey Domínguez III, MD POINT OF CARE TEST ORDERABLES Final Result [facility] [address] [facility]. [address] * (ABNORMAL) POC hematocrit (10/26/2024 12:39 AM EDT) POC Hematocrit 23.0(L) 40 - 52 % 10/26/2024 1:38 AM EDT [facility] Blood, Arterial 10/26/2024 1 2:39 AM EDT 10/26/2024 1:38 AM EDT us Harvey Domínguez III, MD POINT OF CARE TEST ORDERABLES Final Result Performing Organization Address [facility] Co de Phone Number [facility] [address] [facility]. [address] * POC Lactate (10/26/2024 12:39 AM EDT) POC Lactate 1.39 0.50 - 2.20 mmol/L 10/26/2024 1:38 AM EDT [facility] Blood, Arterial 10/26/2024 1 2:39 AM EDT 10/26/2024 1:38 AM EDT us Harvey Domínguez III, MD POINT OF CARE TEST ORDERABLES Final Result Performing Organization Address City/[facility] Co de Phone Number [facility] [address] [facility]. [address] * (ABNORMAL) POC Glucose (10/26/2024 12:39 AM EDT) POC Glucose, Arterial 116(H) 70 - 100 mg/dL 10/26/2024 1:38 AM EDT [facility] Blood, Arterial 10/26/2024 1 2:39 AM EDT 10/26/2024 1:38 AM EDT us Harvey Domínguez III, MD POINT OF CARE TEST ORDERABLES Final Result Performing Organization Address [facility] Co de Phone Number [facility] [address] [facility]. [address] * (ABNORMAL) POC Ionized Calcium (10/26/2024 12:39 AM EDT) POC Ionized Calcium 4.30(L) 4.50 - 5.30 mg/dL 10/26/2024 1:38 AM EDT [facility] Blood, Arterial 10/26/2024 1 2:39 AM EDT 10/26/2024 1:38 AM EDT Harvey Domínguez III, MD POINT OF CARE TEST ORDERABLES Final Result Performing Organization Address [facility] Co de Phone Number [facility] [address] [facility]. [address] * (ABNORMAL) POC Potassium (10/26/2024 12:39 AM EDT) Pathologist [facility] POC Potassium 2.4(LL) 3.5 - 5.3 mmol/L 10/26/2024 1:38 AM EDT [facility] Blood, Arterial 10/26/2024 1 2:39 AM EDT 10/26/2024 1:38 AM EDT Harvey Domínguez III, MD POINT OF CARE TEST ORDERABLES Final Result Performing Organization Address City/[facility] Co de Phone Number [facility] [address] [facility]. [address] * POC Sodium (10/26/2024 12:39 AM EDT) POC Sodium 136 136 - 146 mmol/L 10/26/2024 1:38 AM EDT [facility] Blood, Arterial 10/26/2024 1 2:39 AM EDT 10/26/2024 1:38 AM EDT us Harvey Domínguez III, MD POINT OF CARE TEST ORDERABLES Final Result Performing Organization Address City/[facility] Co de Phone Number [facility] [address] * (ABNORMAL) POC TCO2 (10/26/2024 12:39 AM EDT) POC TCO2, Arterial 21(L) 23 - 27 mmol/L 10/26/2024 1:38 AM EDT [facility] Blood, Arterial 10/26/2024 1 2:39 AM EDT 10/26/2024 1:38 AM EDT us Harvey Domínguez III, MD POINT OF CARE TEST ORDERABLES Final Result Performing Organization Address [facility] Co de Phone Number [facility] [address] [facility]. [address] * POC O2 SAT (10/26/2024 12:39 AM EDT) POC O2 Saturation, Arterial 98 95 - 98 % 10/26/2024 1:38 AM EDT [facility] Blood, Arterial 10/26/2024 1 2:39 AM EDT 10/26/2024 1:38 AM EDT us Harvey Domínguez III, MD POINT OF CARE TEST ORDERABLES Final Result Performing Organization Address City/[facility] Co de Phone Number [facility] [address] [facility]. [address] * (ABNORMAL) POC Base Excess (10/26/2024 12:39 AM EDT) POC Base Excess, Arterial -7(L) -2 - 3 mmol/L 10/26/2024 1:38 AM EDT [facility] Blood, Arterial 10/26/2024 1 2:39 AM EDT 10/26/2024 1:38 AM EDT us Harvey Domínguez III, MD POINT OF CARE TEST ORDERABLES Final Result Performing Organization Address City/[facility]/ZIP Co de Phone Number [facility] [address] [facility] * (ABNORMAL) POC HCO3 (10/26/2024 12:39 AM EDT) POC HCO3, Arterial 20(L) 22 - 26 mmol/L 10/26/2024 1:38 AM EDT [facility] Blood, Arterial 10/26/2024 1 2:39 AM EDT 10/26/2024 1:38 AM EDT us Harvey Domínguez III, MD POINT OF CARE TEST ORDERABLES Final Result Performing Organization Address [facility] Co de Phone Number [facility] [address] [facility] * (ABNORMAL) POC PO2 (10/26/2024 12:39 AM EDT) POC pO2, Arterial 117(H) 80 - 100 mm Hg 10/26/2024 1:38 AM EDT [facility] Blood, Arterial 10/26/2024 1 2:39 AM EDT 10/26/2024 1:38 AM EDT Harvey Domínguez III, MD POINT OF CARE TEST ORDERABLES Final Result Performing Organization Address City/[facility] Co de Phone Number [facility] [address] [facility] * (ABNORMAL) POC PCO2 (10/26/2024 12:39 AM EDT) POC pCO2, Arterial 46(H) 35 - 45 mm Hg 10/26/2024 1:38 AM EDT [facility] Blood, Arterial 10/26/2024 1 2:39 AM EDT 10/26/2024 1:38 AM EDT Harvey Domínguez III, MD POINT OF CARE TEST ORDERABLES Final Result Performing Organization Address [facility] Co de Phone Number [facility] [address] [facility] * (ABNORMAL) POC pH (10/26/2024 12:39 AM EDT) POC pH, Arterial 7.24(L) 7.35 - 7.45 10/26/2024 1:38 AM EDT [facility] Blood, Arterial 10/26/2024 1 2:39 AM EDT 10/26/2024 1:38 AM EDT Result [facility] Harvey Domínguez III, MD POINT OF CARE TEST ORDERABLES Final Result Performing Organization Address [facility] Co de Phone Number [facility] [address] [facility] * Transfuse Platelets (10/26/2024 12:37 AM EDT) Result [facility] Ben Blake MD NURSING TREATMENT ORDERABLES - BLOOD ADMIN Final Result * Transfuse RBC (10/26/2024 12:31 AM EDT) Result [facility] Ben Blake MD NURSING TREATMENT ORDERABLES - BLOOD ADMIN Final Result * Transfuse Fresh Frozen Plasma (10/26/2024 12:28 AM EDT) Result [facility] Ben Blake MD NURSING TREATMENT ORDERABLES - BLOOD ADMIN Final Result * Transfuse Fresh Frozen Plasma (10/26/2024 12:28 AM EDT) Result [facility] Ben Blake MD NURSING TREATMENT ORDERABLES - BLOOD ADMIN Final Result * Routine Culture plus Stain (10/26/2024 12:03 AM EDT) Gram Stain Result Cytospin Results: [facility] Gram Stain Result Polymorphonuclear Leukocytes Seen; [facility] Gram Stain Result No Organisms Seen; [facility] Culture Result No Growth After 3 Days [facility] Surgical Swab ABDOMEN / Unknown 12:03 AM EDT Comment:2.) Ascites Anaerobhic culture Fungus culture Routine culture plus stain Narrative [facility] - 10/28/2024 9:38 PM EDT 2.) Ascites Anaerobhic culture Fungus culture Routine culture plus stain 2.) Ascites us Harvey Domínguez III, MD MICROBIOLOGY - GENE RAL ORDERABLES Final Result Performing Organization Address City/State/[facility] Co de Phone Number [facility] [address] [place] [address], [facility] * Surgical Pathology Exam (10/26/2024 12:00 AM EDT) 10/26/2024 10/27/2024 Narrative [facility] - 10/26/2024 12:00 AM EDT CASE: [id number] PATIENT: BLAIR GILBERT Clinical History: Liver - kidney transplant Pre-Operative Diagnosis: Alcoholic cirrhosis of liver Post-Operative Diagnosis: Alcoholic cirrhosis of liver Specimen(s) Submitted: [facility] [place] [facility] CPT Code(s): 97105 X 1; 00334 X 5 Additional Information: FINAL DIAGNOSIS: A. 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 - Negative for neoplasm. - Increased hepatocellular iron deposition (3+; Modified Scheuer). Gall bladder: -Intramucosal and submucosal vascular congestion and hemorrhage. - Negative for dysplasia or malignancy. Gross Description: Received in formalin, labeled Blair Gilbert and [place] [facility] , is a 2338-gram, hepatectomy specimen [...] discrete masses or other lesions are identified. [employer] sections are submitted in cassettes [id number] as follows: A1: Hilar margins, en face. [...] Pathologist signing this report is located at [facility], [address] [place] [address], Formerly [facility] [phone], CLIA ID: [id number] us Harvey Domínguez III, MD PATHOLOGY/CYTOLOGY ORDERABLES Final Result [facility] * Transfuse Fresh Frozen Plasma (10/25/2024 11:47 PM EDT) Ben Blake MD NURSING TREATMENT ORDERABLES - BLOOD ADMIN Final Result * Transfuse RBC (10/25/2024 11:45 PM EDT) us Ben Blake MD NURSING [...] CARE TEST ORDERABLES Final Result [facility] [address] * POC Sample Type (10/25/2024 11:40 PM EDT) [facility] POC Sample Type Arterial 10/25/2024 11:57 PM EDT [facility] Blood, Arterial 10/25/2024 1 1:40 PM EDT 10/25/2024 11:57 PM EDT Harvey Domínguez III, MD POINT OF CARE TEST ORDERABLES Final Result [facility] [address] [facility]. [address] * POC Anion Gap (10/25/2024 11:40 PM EDT) Pathologist [facility] POC Anion Gap, Arterial 13 3 - 16 mmol/L 10/25/2024 11:57 PM EDT [facility] Blood, Arterial 10/25/2024 1 1:40 PM EDT 10/25/2024 11:57 PM EDT us Harvey Domínguez III, MD POINT OF CARE TEST ORDERABLES Final Result Performing Organization Address City/[facility]/ZIP Co de Phone Number [facility] [address] [facility]. [address] * POC Chloride (10/25/2024 11:40 PM EDT) POC Chloride 102 98 - 110 mmol/L 10/25/2024 11:57 PM EDT [facility] Blood, Arterial 10/25/2024 1 1:40 PM EDT 10/25/2024 11:57 PM EDT us Harvey Domínguez III, MD POINT OF CARE TEST ORDERABLES Final Result Performing Organization Address [facility]/ZIP Co de Phone Number [facility] [address] [facility]. [address] * (ABNORMAL) POC Hemoglobin (10/25/2024 11:40 PM EDT) POC Hemoglobin 6.6(L) 14.0 - 18.0 g/dL 10/25/2024 11:57 PM EDT [facility] Blood, Arterial 10/25/2024 1 1:40 PM EDT 10/25/2024 11:57 PM EDT us Harvey Domínguez III, MD POINT OF CARE TEST ORDERABLES Final Result [facility] [address] [place] [facility]. [address] * (ABNORMAL) POC hematocrit (10/25/2024 11:40 PM EDT) POC Hematocrit 19.0(L) 40 - 52 % 10/25/2024 11:57 PM EDT [facility] Blood, Arterial 10/25/2024 1 1:40 PM EDT 10/25/2024 11:57 PM EDT Harvey Domínguez III, MD POINT OF CARE TEST ORDERABLES Final Result [facility] [address] [place] [facility]. [address] * POC Lactate (10/25/2024 11:40 PM EDT) Pathologist [facility] POC Lactate 1.36 0.50 - 2.20 mmol/L 10/25/2024 11:57 PM EDT [facility] Blood, Arterial 10/25/2024 1 1:40 PM EDT 10/25/2024 11:57 PM EDT Harvey Domínguez III, MD POINT OF CARE TEST ORDERABLES Final Result Performing Organization Address [facility] Co de Phone Number [facility] [address] [facility]. [address] * (ABNORMAL) POC Glucose (10/25/2024 11:40 PM EDT) Pathologist [facility] POC Glucose, Arterial 101(H) 70 - 100 mg/dL 10/25/2024 11:57 PM EDT [facility] Blood, Arterial 10/25/2024 1 1:40 PM EDT 10/25/2024 11:57 PM EDT Harvey Domínguez III, MD POINT OF CARE TEST ORDERABLES Final Result Performing Organization Address City/[facility]/ZIP Co de Phone Number [facility] [address] [facility]. [address] * POC Ionized Calcium (10/25/2024 11:40 PM EDT) Pathologist [facility] POC Ionized Calcium 4.50 4.50 - 5.30 mg/dL 10/25/2024 11:57 PM EDT [facility] Blood, Arterial 10/25/2024 1 1:40 PM EDT 10/25/2024 11:57 PM EDT us Harvey Domínguez III, MD POINT OF CARE TEST ORDERABLES Final Result Performing Organization Address [facility] Co de Phone Number [facility] [address] [place] [address]. [address] * (ABNORMAL) POC Potassium (10/25/2024 11:40 PM EDT) POC Potassium 1.9(LL) 3.5 - 5.3 mmol/L 10/25/2024 11:57 PM EDT [facility] Blood, Arterial 10/25/2024 1 1:40 PM EDT 10/25/2024 11:57 PM EDT us Harvey Domínguez III, MD POINT OF CARE TEST ORDERABLES Final Result Performing Organization Address [facility] Co de Phone Number [facility] [address] [place] [address]. [address] * (ABNORMAL) POC Sodium (10/25/2024 11:40 PM EDT) POC Sodium 135(L) 136 - 146 mmol/L 10/25/2024 11:57 PM EDT [facility] Blood, Arterial 10/25/2024 1 1:40 PM EDT 10/25/2024 11:57 PM EDT Harvey Domínguez III, MD POINT OF CARE TEST ORDERABLES Final Result Performing Organization Address [facility] Co de Phone Number [facility] [address] [place] [address]. [address] * (ABNORMAL) POC TCO2 (10/25/2024 11:40 PM EDT) POC TCO2, Arterial 21(L) 23 - 27 mmol/L 10/25/2024 11:57 PM EDT [facility] Blood, Arterial 10/25/2024 1 1:40 PM EDT 10/25/2024 11:57 PM EDT us Harvey Domínguez III, MD POINT OF CARE TEST ORDERABLES Final Result [facility] [address] [place] * POC O2 SAT (10/25/2024 11:40 PM EDT) POC O2 Saturation, Arterial 98 95 - 98 % 10/25/2024 11:57 PM EDT [facility] Blood, Arterial 10/25/2024 1 1:40 PM EDT 10/25/2024 11:57 PM EDT us Harvey Domínguez III, MD POINT OF CARE TEST ORDERABLES Final Result Performing Organization Address City/[facility]/ZIP Co de Phone Number [facility] [address] [facility]. [address] * (ABNORMAL) POC Base Excess (10/25/2024 11:40 PM EDT) POC Base Excess, Arterial -6(L) -2 - 3 mmol/L 10/25/2024 11:57 PM EDT [facility] Blood, Arterial 10/25/2024 1 1:40 PM EDT 10/25/2024 11:57 PM EDT us Harvey Domínguez III, MD POINT OF CARE TEST ORDERABLES Final Result [facility] [address] * (ABNORMAL) POC HCO3 (10/25/2024 11:40 PM EDT) POC HCO3, Arterial 20(L) 22 - 26 mmol/L 10/25/2024 11:57 PM EDT [facility] Blood, Arterial 10/25/2024 1 1:40 PM EDT 10/25/2024 11:57 PM EDT us Harvey Domínguez III, MD POINT OF CARE TEST ORDERABLES Final Result [facility] [address]. [address] * (ABNORMAL) POC PO2 (10/25/2024 11:40 PM EDT) POC pO2, Arterial 107(H) 80 - 100 mm Hg 10/25/2024 11:57 PM EDT [facility] Blood, Arterial 10/25/2024 1 1:40 PM EDT 10/25/2024 11:57 PM EDT us Harvey Domínguez III, MD POINT OF CARE TEST ORDERABLES Final Result Performing Organization Address City/[facility]/ZIP Co de Phone Number [facility] [address]. [address] * POC PCO2 (10/25/2024 11:40 PM EDT) POC pCO2, Arterial 41 35 - 45 mm Hg 10/25/2024 11:57 PM EDT [facility] Blood, Arterial 10/25/2024 1 1:40 PM EDT 10/25/2024 11:57 PM EDT Harvey Domínguez III, MD POINT OF CARE TEST ORDERABLES Final Result [facility] [address] * (ABNORMAL) POC pH (10/25/2024 11:40 PM EDT) POC pH, Arterial 7.29(L) 7.35 - 7.45 10/25/2024 11:57 PM EDT [facility] Blood, Arterial 10/25/2024 1 1:40 PM EDT 10/25/2024 11:57 PM EDT Harvey Domínguez III, MD POINT OF CARE TEST ORDERABLES Final Result [facility] [address]. [address] * Urine culture (10/25/2024 11:08 PM EDT) Culture Result <1,000 cfu/mL [facility] Culture Result Skin/Urogeni rony Mckayla. No Further Workup. [facility] Newly Placed Berkowitz Urine URINE SPECIMEN / Unknown 10/25/2024 11:08 PM EDT Comment:urine culture Narrative [facility] - 10/28/2024 9:59 AM EDT urine culture urine culture Harvey Domínguez III, MD MICROBIOLOGY - GENE RAL ORDERABLES Final Result Performing Organization Address City/[facility]/ZIP Co de Phone Number [facility] [address]. [address] * X-ray Portable Chest (10/25/2024 10:19 [...] - 2.2 mmol/L 10/25/2024 10:39 PM EDT [facility] Plasma 10/25/2024 10:1 7 PM EDT 10/25/2024 10:17 PM EDT Ben Blake MD LAB BLOOD ORDERABLES Final Re sult [facility] [address] * (ABNORMAL) Ferritin (10/25/2024 10:17 PM EDT) Ferritin 623.2(H) 23.9 - 336.2 ng/mL 10/25/2024 11:02 PM EDT [facility] Serum 10/25/2024 10:1 7 PM EDT 10/25/2024 10:17 PM EDT Leandra Og MD LAB BLOOD ORDERABLES F inal Result [facility] [address] [facility]. [address] * Iron Studies (Iron + TIBC) (10/25/2024 10:17 PM EDT) Iron 128 50 - 212 ug/dL 10/25/2024 10:44 PM EDT [facility] % Iron Saturation SEE COMMENT 15.0 - 55.0 % 10/25/2024 10:44 PM EDT [facility] Comment:Unable to calculate result because contributing result outside reportable range.. TIBC SEE COMMENT 261 - 462 ug/dL 10/25/2024 10:44 PM EDT [facility] Comment:Unable to calculate result because contributing result outside reportable range.. Serum 10/25/2024 10:1 7 PM EDT 10/25/2024 10:17 PM EDT Leandra Og MD LAB BLOOD ORDERABLES F inal Result [facility] [address] [facility]. [address] * PTH (10/25/2024 10:17 PM EDT) PTH 36.0 12.0 - 88.0 pg/mL 10/25/2024 11:01 PM EDT [facility] Serum 10/25/2024 10:1 7 PM EDT 10/25/2024 10:17 PM EDT Leandra Og MD LAB BLOOD ORDERABLES F inal Result [facility] [address] [facility]. [address] * HIV 1+2 Antibody/Antigen with Reflex (10/25/2024 10:17 PM EDT) HIV 1+2 AB/AGN Nonreactive Nonreactive 10/25/2024 11:03 PM EDT [facility] Serum 10/25/2024 10:1 7 PM EDT 10/25/2024 10:16 PM EDT [facility] - 10/25/2024 11:03 PM EDT \HIVRNR Leandra Og MD LAB BLOOD ORDERABLES F inal Result Performing Organization Address [facility] Co de Phone Number [facility] [address] [place] [address] * Hepatitis B Core Antibody (10/25/2024 10:17 PM EDT) Pathologist [facility] Hep B Core Total Ab Nonreactive Nonreactive 10/25/2024 11:07 PM EDT [facility] Comment:Health Department no tified in accordance with reportable infectious disease guidelines. Serum 10/25/2024 10:1 7 PM EDT 10/25/2024 10:17 PM EDT [facility] - 10/25/2024 11:07 PM EDT A nonreactive final interpretation indicates that anti-HBc antibodies were not detected in the sample; it is possible that the individual is not infected with HBV. Leandra Og MD LAB BLOOD ORDERABLES F inal Result Performing Organization Address City/[facility] Co de Phone Number [facility] [address] [facility]. [address] * Hepatitis C Antibody (10/25/2024 10:17 PM EDT) HCV Ab Nonreactive Nonreactive 10/25/2024 11:16 PM EDT [facility] Comment:Health Department no tified in accordance with reportable infectious disease guidelines. Serum 10/25/2024 10:1 7 PM EDT 10/25/2024 10:17 PM EDT [facility] - 10/25/2024 11:16 PM EDT Antibodies to HCV not detected; does not exclude the possibility of exposure to HCV. us Leandra Og MD LAB BLOOD ORDERABLES F inal Result Performing Organization Address City/[facility] Co de Phone Number [facility] [address] [facility]. [address] * (ABNORMAL) Hepatitis B Surface Antibody, Quantitati (10/25/2024 10:17 PM EDT) Pathologist [facility] HBSAB NUMBER 10.70(H) 0.00 - 9.99 mIU/mL 10/25/2024 11:52 PM EDT [facility] Hep B S Ab Equivocal (A) Nonreactive 10/25/2024 11:52 PM EDT [facility] Serum 10/25/2024 10:1 7 PM EDT 10/25/2024 10:17 PM EDT Leandra Og MD LAB BLOOD ORDERABLES F inal Result Performing Organization Address [facility] Co de Phone Number [facility] [address] [facility]. [address] * Hepatitis B surface antigen (10/25/2024 10:17 PM EDT) [facility] Hep B Surface Ag Nonreactive Nonreactive 10/25/2024 11:12 PM EDT [facility] Comment:Health Department no tified in accordance with reportable infectious disease guidelines. Serum 10/25/2024 10:1 7 PM EDT 10/25/2024 10:17 PM EDT Narrative [facility] - 10/25/2024 11:12 PM EDT Specimen is considered negative for HBsAg. us Leandra Og MD LAB BLOOD ORDERABLES F inal Result Performing Organization Address [facility] Co de Phone Number [facility] [address] [facility]. [address] * Hepatitis A Antibody Total (10/25/2024 10:17 PM EDT) Pathologist [facility] Anti-HAV Total (IgG + IgM) Nonreactive 10/25/2024 11:13 PM EDT [facility] Serum 10/25/2024 10:1 7 PM EDT 10/25/2024 10:17 PM EDT [facility] - 10/25/2024 11:13 PM EDT HAV antibodies not detected Leandra Og MD LAB BLOOD ORDERABLES F inal Result Performing Organization Address City/[facility]/ZIP Co de Phone Number [facility] [address] [facility]. [address] * (ABNORMAL) Hepatic Function Panel (10/25/2024 10:17 PM EDT) Total Bilirubin 9.1(H) 0.0 - 1.5 mg/dL 10/25/2024 10:47 PM EDT [facility] Bilirubin, Direct 4.58(H) 0.00 - 0.40 mg/dL 10/25/2024 10:47 PM EDT [facility] AST 51(H) 13 - 39 U/L 10/25/2024 10:47 PM EDT [facility] ALT 23 7 - 52 U/L 10/25/2024 10:47 PM EDT [facility] Alkaline Phosphatase 144(H) 36 - 125 U/L 10/25/2024 10:47 PM EDT [facility] Total Protein 5.5(L) 6.4 - 8.9 g/dL 10/25/2024 10:47 PM EDT [facility] Albumin 3.5 3.5 - 5.7 g/dL 10/25/2024 10:47 PM EDT [facility] Bilirubin, Indirect 4.52(H) 0.00 - 1.10 mg/dL 10/25/2024 10:47 PM EDT [facility] Plasma 10/25/2024 10:1 7 PM EDT 10/25/2024 10:17 PM EDT us Leandra Og MD LAB BLOOD ORDERABLES F inal Result [facility] [address] * (ABNORMAL) Renal Function Panel w/EGFR (10/25/2024 10:17 PM EDT) Sodium 137 133 - 146 mmol/L 10/25/2024 10:47 PM EDT [facility] Potassium 2.1(LL) 3.5 - 5.3 mmol/L 10/25/2024 10:47 PM EDT [facility] Comment:Critical Result K:2. 1 Called to and read back by: ALICIA CARCAMO RN at: 10/25/2024 22:47:45 by:NANCY Chloride 100 98 - 110 mmol/L 10/25/2024 10:47 PM EDT [facility] CO2 20(L) 21 - 33 mmol/L 10/25/2024 10:47 PM EDT [facility] Anion Gap 17(H) 3 - 16 mmol/L 10/25/2024 10:47 PM EDT [facility] BUN 74(H) 7 - 25 mg/dL 10/25/2024 10:47 PM EDT [facility] Creatinine 3.87(H) 0.60 - 1.30 mg/dL 10/25/2024 10:47 PM EDT [facility] Glucose 114(H) 70 - 100 mg/dL 10/25/2024 10:47 PM EDT [facility] Calcium 9.3 8.6 - 10.3 mg/dL 10/25/2024 10:47 PM EDT [facility] Phosphorus 5.9(H) 2.1 - 4.7 mg/dL 10/25/2024 10:47 PM EDT [facility] Albumin 3.5 3.5 - 5.7 g/dL 10/25/2024 10:47 PM EDT [facility] Osmolality, Calculated 307(H) 278 - 305 mOsm/kg 10/25/2024 10:47 PM EDT [facility] EGFR 19 10/25/2024 10:47 PM EDT [facility] Comment:As of 2021, the [...] ORDERABLES F inal Result Performing Organization Address City/[facility]/ZIP Co de Phone Number [facility] [address] [facility]. [address] * (ABNORMAL) APTT, NO ANTICOAGULANT (10/25/2024 10:17 PM EDT) aPTT 41.7(H) 25.5 - 35.0 seconds 10/25/2024 10:36 PM EDT [facility] Plasma 10/25/2024 10:1 7 PM EDT 10/25/2024 10:17 PM EDT Leandra Og MD LAB BLOOD ORDERABLES F inal Result Performing Organization Address City/[facility]/ZIP Co de Phone Number [facility] [address] [facility]. [address] * (ABNORMAL) Protime-INR (10/25/2024 10:17 PM EDT) Protime 21.7(H) 12.1 - 15.1 seconds 10/25/2024 10:35 PM EDT [facility] INR 1.8(H) 0.9 - 1.1 10/25/2024 10:35 PM EDT [facility] Comment: RECOMMENDED THERAPEUTIC RANGES USING INR : Stable oral anticoagulant therapy: 2.0 - 3.0 Mechanical prosthetic heart valve: 2.5 - 3.5 Recurrent acute myocardial infarction: 2.5 - 3.5 Plasma 10/25/2024 10:1 7 PM EDT 10/25/2024 10:17 PM EDT us Leandra Og MD LAB BLOOD ORDERABLES F inal Result [facility] [address] [place] [place] [id number] * (ABNORMAL) Differential (10/25/2024 10:17 PM EDT) Differential Comments See Note 10/25/2024 10:54 PM EDT [facility] Comment: _Platelets Appear Decreased _Platelet Morphology Normal Scan Result PERFORMED 10/25/2024 10:54 PM EDT [facility] Neutrophils Relative 79.8 40.0 - 80.0 % 10/25/2024 10:54 PM EDT [facility] Lymphocytes Relative 9.6(L) 15.0 - 45.0 % 10/25/2024 10:54 PM EDT [facility] Monocytes Relative 8.9 0.0 - 12.0 % 10/25/2024 10:54 PM EDT [facility] Eosinophils Relative 1.3 0.0 - 8.0 % 10/25/2024 10:54 PM EDT [facility] Basophils Relative 0.4 0.0 - 1.0 % 10/25/2024 10:54 PM EDT [facility] nRBC 0 0 - 0 /100 WBC 10/25/2024 10:54 PM EDT [facility] Neutrophils Absolute 4,948 1,520 - 8,640 /uL 10/25/2024 10:54 PM EDT [facility] Lymphocytes Absolute 595 570 - 4,860 /uL 10/25/2024 10:54 PM EDT [facility] Monocytes Absolute 552 0 - 1,296 /uL 10/25/2024 10:54 PM EDT [facility] Eosinophils Absolute 81 0 - 864 /uL 10/25/2024 10:54 PM EDT [facility] Basophils Absolute 25 0 - 108 /uL 10/25/2024 10:54 PM EDT [facility] PLT Morphology Platelet morphology appears normal 10/25/2024 10:54 PM EDT [facility] Whole Blood 10/25/2024 10:1 7 PM EDT 10/25/2024 10:17 PM EDT us Leandra Og MD LAB BLOOD ORDERABLES F inal Result [facility] [address] [place] [address], [facility] * (ABNORMAL) CBC (10/25/2024 10:17 PM EDT) WBC 6.2 3.8 - 10.8 10E3/uL 10/25/2024 10:54 PM EDT [facility] RBC 2.40(L) 4.20 - 5.80 10E6/uL 10/25/2024 10:54 PM EDT [facility] Hemoglobin 8.3(L) 13.2 - 17.1 g/dL 10/25/2024 10:54 PM EDT [facility] Hematocrit 23.7(L) 38.5 - 50.0 % 10/25/2024 10:54 PM EDT [facility] MCV 98.9 80.0 - 100.0 fL 10/25/2024 10:54 PM EDT [facility] MCH 34.6(H) 27.0 - 33.0 pg 10/25/2024 10:54 PM EDT [facility] MCHC 35.0 32.0 - 36.0 g/dL 10/25/2024 10:54 PM EDT [facility] RDW 17.8(H) 11.0 - 15.0 % 10/25/2024 10:54 PM EDT [facility] Platelets 56(L) 140 - 400 10E3/uL 10/25/2024 10:54 PM EDT [facility] Comment: Specimen checked for clots. None detected. Slide Reviewed for PLT Clumps. None Seen. Platelet Estimate Decreased 10/25/2024 10:54 PM EDT [facility] MPV 8.1 7.5 - 11.5 fL 10/25/2024 10:54 PM EDT [facility] Whole Blood 10/25/2024 10:1 7 PM EDT 10/25/2024 10:17 PM EDT [facility]arr[facility] - 10/25/2024 10:54 PM EDT Peripheral blood smear was scanned per review criteria approved by the laboratory medical lab technologist. us Leandra Og MD LAB BLOOD ORDERABLES F inal Result Performing Organization Address [facility] de Phone Number [facility] [address] [place] [address] * Donor Specific Antibody (DSA) (10/25/2024 10:00 PM EDT) Pathologist [facility] AntiDonor Antibodies The request and specimen(s) for this test have been received and transported to the [facility] [place] at [address] [place] [address]. The [facility] [place] will report results directly to the client. 10/25/2024 10:20 PM EDT [facility] Comment:Testing performed by [facility], [facility], [address] [place] [address]. The [facility] report has been forwarded to the appropriate ordering location. Please refer to this report for patient results. Serum 10/25/2024 10:0 0 PM EDT 10/25/2024 10:20 PM EDT Leandra Og MD LAB BLOOD ORDERABLES F inal Result Performing Organization Address [facility] de Phone Number [facility] [address] * (ABNORMAL) Venous Blood Gas, Line/Syringe (10/25/2024 10:00 PM EDT) PH-Line Draw 7.38 7.32 - 7.42 10/25/2024 10:08 PM EDT [facility] PCO2-Line Draw 33(L) 41 - 51 mm Hg 10/25/2024 10:08 PM EDT [facility] PO2-Line Draw 33 25 - 40 mm Hg 10/25/2024 10:08 PM EDT [facility] HCO3-Line Draw 20(L) 24 - 28 mmol/L 10/25/2024 10:08 PM EDT [facility] CO2 Content-Line Draw 21(L) 25 - 29 mmol/L 10/25/2024 10:08 PM EDT [facility] Base Excess-Line Draw -5.0(L) -2.0 - 3.0 mmol/L 10/25/2024 10:08 PM EDT [facility] %HBO2-Line Draw 53.8 40.0 - 70.0 % 10/25/2024 10:08 PM EDT [facility] Carboxyhgb-Ludivina e Draw 1.9 % 10/25/2024 10:08 PM EDT [facility] Comment: CARBOXYHEMOGLOBIN (CO) REFERENCE RANGES: Non-Smokers: <2 % Smokers: <8 % TOXIC: >20 % Methemoglobin- Line Draw 0.2 0.0 - 1.5 % 10/25/2024 10:08 PM EDT [facility] Reduced Hemoglobin-Ludivina e Draw 44.1(H) 0.0 - 5.0 % 10/25/2024 10:08 PM EDT [facility] Venous, Line Draw 10/25/2024 10:00 PM EDT 10/25/2024 10:04 PM EDT us Leandra Og MD LAB BLOOD ORDERABLES F inal Result Performing Organization Address City/[facility]/ZIP Co de Phone Number [facility] [address] * (ABNORMAL) POC Glucose Monitoring Device (10/25/2024 9:56 PM EDT) POC Glucose Monitoring Device 103(H) 70 - 100 mg/dL 10/25/2024 9:58 PM EDT [facility] Blood 10/25/2024 9:56 PM EDT 10/25/2024 9:57 PM EDT us Harvey Domínguez III, MD POINT OF CARE TEST ORDERABLES Final Result Performing Organization Address [facility] Co de Phone Number [facility] [address] * ECG 12 lead (MUSE) (10/25/2024 9:34 PM EDT) 10/25/2024 9:34 PM EDT Narrative MUSE - 10/27/2024 10:08 AM EDT Ventricular Rate: 97 BPM Atrial Rate: 86 BPM QRS Duration: 106 ms QT: 532 ms QTc: 675 ms P [place]: 38 degrees R [place]: -29 degrees T [place]: 32 degrees Diagnosis Line: Critical Test Result: Long QTc , AV Block ^ SINUS RHYTHM WITH PREMATURE VENTRICULAR COMPLEXES ^ PROLONGED QT ^ NONSPECIFIC ST AND T WAVE CHANGES ^ ABNORMAL ECG ^ ^ Confirmed by MD HA, NOAHYAKady ([id number]) on 10/27/2024 10:08:26 AM Leandra Og MD ECG ORDERABLES Final Result Performing Organization Address [facility] Co de Phone Number MUSE * Hepatitis C RNA, Quant Reflex to Genotyp (10/25/2024 8:18 PM EDT) Pathologist [facility] Units Not Detected IU/mL 10/27/2024 11:03 AM EDT [facility] Comment:Test methodology for HCV RNA quantification is an FDA-approved nucleic acid amplification assay. The Lower Limit of Quantitation (LLOQ) is 15 IU/mL. The linear range of the assay is 15-100,000,000 IU/mL. The Limit of Detection (LoD) is 12.0 IU/mL for EDTA plasma. The reference range is Not Detected. IU log10 See Note log 10 IU/mL 10/27/2024 11:03 AM EDT [facility] Comment:HCV RNA not detected . Plasma 10/25/2024 8:18 PM EDT 10/25/2024 10:27 PM EDT Leandra Og MD LAB BLOOD ORDERABLES F inal Result [facility] [address] [place] [address], [facility] * Urinalysis w/Rfl to Microscopic (10/25/2024 8:18 PM EDT) Color, UA Yellow Yellow,Straw 10/25/2024 10:38 PM EDT [facility] Clarity, UA Clear Clear 10/25/2024 10:38 PM EDT [facility] Specific [place], UA 1.010 1.005 - 1.035 10/25/2024 10:38 PM EDT [facility] pH, UA 6.0 5.0 - 8.0 10/25/2024 10:38 PM EDT [facility] Protein, UA Negative Negative mg/dL 10/25/2024 10:38 PM EDT [facility] Glucose, UA Negative Negative mg/dL 10/25/2024 10:38 PM EDT [facility] Ketones, UA Negative Negative mg/dL 10/25/2024 10:38 PM EDT [facility] Bilirubin, UA Negative Negative 10/25/2024 10:38 PM EDT [facility] Blood, UA Negative Negative 10/25/2024 10:38 PM EDT [facility] Nitrite, UA Negative Negative 10/25/2024 10:38 PM EDT [facility] Urobilinogen, UA <2.0 0.2 - 1.9 mg/dL 10/25/2024 10:38 PM EDT [facility] Leukocyte Esterase, UA Negative Negative 10/25/2024 10:38 PM EDT [facility] Urine 10/25/2024 8:18 PM EDT 10/25/2024 10:35 PM EDT Narrative [facility] - 10/25/2024 10:38 PM EDT Microscopic testing is not performed when the dipstick is negative for blood, leukocyte, protein and nitrite. us Leandra Og MD URINE ORDERABLES Final Result [facility] [address] [place] [address], [facility] * Toxoplasma gondii antibody, IgG (10/25/2024 8:18 PM EDT) Toxoplasma Gondii IgG <3.0 0.0 - 7.1 IU/mL 10/27/2024 7:55 AM EDT [facility] Comment: Negative <7.2 Equivocal 7.2 - 8.7 Positive >8.7 Serum 10/25/2024 8:18 PM EDT 10/27/2024 8:06 AM EDT Narrative [facility] - 10/27/2024 8:06 AM EDT PERFORMED AT: [address] [id number] BAT PERSON: Bassam Khalil, PhD PHONE: [phone] Leandra Og MD LAB BLOOD ORDERABLES F inal Result [facility] [address] [place] [address] * Antibody Screen (10/25/2024 7:46 PM EDT) Antibody Screen Negative 10/25/2024 10:41 PM EDT [facility] Blood 10/25/2024 7:46 PM EDT 10/25/2024 9:54 PM EDT Narrative [facility] - 10/25/2024 10:44 PM EDT Testing performed by [facility] Transfusion Service Ben Blake MD BLOOD BANK TEST ORDERABLES Fi nal Result Performing Organization Address City/[facility] Co de Phone Number [address] * ABO/Rh (10/25/2024 7:46 PM EDT) ABO Grouping O 10/25/2024 10:23 PM EDT [facility] Rh Type Positive 10/25/2024 10:23 PM EDT [facility] Blood 10/25/2024 7:46 PM EDT 10/25/2024 9:54 PM EDT Ben Blake MD BLOOD BANK TEST ORDERABLES Fi nal Result Performing Organization Address City/[facility]/ZIP Co de Phone Number [address] * (ABNORMAL) TEG-Standard Global Hemostasis (Rapid TEG with Heparin Effect, Contains a Baseline TEG) (10/25/2024 7:46 PM EDT) Citrated Kaolin Reaction Time (TEGHEPARINASE) 8.4 4.6 - 9.1 minutes 10/25/2024 10:49 PM EDT [facility] Citrated Rapid Teg Maximum Amplitude (TEGHEPARINASE) <40.0(L) 52.0 - 70.0 mm 10/25/2024 10:49 PM EDT [facility] Citrated Functional Fibrinogen Maximum Amplitude (TEGHEPARINASE) 6.7(L) 15.0 - 32.0 mm 10/25/2024 10:49 PM EDT [facility] Citrated Kaolin W/Heparinase Reaction Time (TEGHEPARINASE) 8.1 4.3 - 8.3 minutes 10/25/2024 10:49 PM EDT [facility] Citrated Kaolin K-Time (TEGHEPARINASE) 2.5(A) 0.8 - 2.1 minutes 10/25/2024 10:49 PM EDT [facility] Citrated Kaolin Angle (TEGHEPARINASE) 65.7(A) 63.0 - 78.0 degrees 10/25/2024 10:49 PM EDT [facility] Citrated Kaolin Maximum Amplitude (TEGHEPARINASE) <40.0(L) 52.0 - 69.0 mm 10/25/2024 10:49 PM EDT [facility] Citrated Functional Fibrinogen- Fibrinogen Level (TEGHEPARINASE) 159.5(L) 278.0 - 581.0 mg/dL 10/25/2024 10:49 PM EDT [facility] Whole Blood (Citrate) 10/25/2024 7:46 PM EDT 10/25/2024 10:15 PM EDT us Ben Blake MD LAB BLOOD ORDERABLES Final Re sult [facility] [address] [place] [address], [facility] documented in this encounter Visit Diagnoses Diagnosis Acute kidney injury superimposed on CKD ([facility])- Primary Prophylactic antibiotic Encounter for long-term (current) [...] in sodium chloride 0.9% 100 mL IVPB ([id number]) 1 g, Intravenous, at 200 mL/hr, Every 6 hours scheduled (4 times per day), First dose on Sun10/26/24 at 0630, For 2 days, Dosage may need to be adjusted for renal dysfunction. Full dose is 1g IV q6h Use [id number] Adapter - Mix Thoroughly Before Administration New [...] Once underlying shock sufficiently improved, defined as [id number] r requirement ? 0.2 mcg/kg/min (norepinephrine equivalent) [...] 6:48 PM EDT 1 mg HYDROmorphone (DILAUDID) PROGRAM DEVELOPER 6 mg/30 mL syringe *Standard Conc* Intravenous, Continuous, Starting on Sun10/27/24 at 1730, HIGH ALERT MEDICATION New Syringe/Cartridge 10/28/2024 3:59 AM EDT New Syringe/Cartridge 10/27/2024 7:09 PM EDT HYDROmorphone (DILAUDID) PROGRAM DEVELOPER 6 mg/30 mL syringe *Standard Conc* Intravenous, [...] in sodium chloride 0.9 % 100 mL [id number] IVPB 50 mg, Intravenous, at 100 mL/hr, Every 24 hours, First dose on Sun10/27/24 at 1400, PROTECT FROM LIGHT FLUSH LINE w/NSS PRIOR TO ADMINISTRATION Use [id number] Adapter - Mix Thoroughly Before Administration Rate/Dose [...] paralyzed: Do not titrate - follow policy [id number]. Start infusion if unable to maintain goal [...] Gale, ЮЛИЯ) 0620 (Given - Provider: Yvonne Gale RN)1017 (Given - Provider: Paulette Flannery RN)2119 (Given - Provider: Yvonne Gale RN) 0543 (Given - Provider: Yvonne Gale, ЮЛИЯ)1219 [...] 1230 1029 (Given - Provider: Paulette Flannery RN)2056 (Not Given - Provider: Yvonne Gale RN [...] at 0930 0852 (Given - Provider: Paulette Flannery, ЮЛИЯ) 1018 (Given - Provider: Paulette Flannery, ЮЛИЯ) 1142 (Given - Provider: Paulette Flannery, ЮЛИЯ) [...] Flannery RN)1344 (Given - Provider: Paulette Flannery, ЮЛИЯ)2120 (Given - Provider: Yvonne Gale, ЮЛИЯ) 1149 (Given - Provider: Paulette Flannery RN)1531 (Given - Provider: Meka Montalvo, ЮЛИЯ) heparin (porcine) injection 5,000 Units 5,000 Units, Subcutaneous, Every 8 hours scheduled (3 times per day), First dose on 10/26/24 at 0600 0614 (Given - Provider: Vandana [...] 2 patch, Transdermal, Daily, First dose on Tish 10/30/24 at 0900, LEAVE PATCH ON FOR 12 [...] Vivi Newton RN)2340 (Given - Provider: Yvonne Gale, ЮЛИЯ - Comment: given at 184) 1018 (Given - Provider: Paulette Flannery RN)1344 (Given - Provider: Paulette Flannery RN)1714 (Given - Provider: Paulette Flannery RN)2118 (Given - Provider: Yvonne Gale RN) 1141 (Given - Provider: Paulette Flannery RN)1530 (Not Given - Provider: Meka Montalvo RN - Reason: Other - Comment: rtoo close to previous dose)175 (Given - Provider: Paulette Flannery, ЮЛИЯ) mycophenolate (CELLCEPT) capsule 500 mg 500 mg, [...] 1.1 mEq 2327 (Given - Provider: Yvonne Gale, ЮЛИЯ) sod phos di, mono-K phos mono (K-PHOS [...] Paulette Flannery, ЮЛИЯ)1434 (Given - Provider: Paulette Flannery RN)1844 (Given - Provider: Vivi Newton RN)2232 (Given - Provider: Yvonne Gale, ЮЛИЯ) 0215 (Given - Provider: Yvonne Gale, ЮЛИЯ)0615 (Given - Provider: Yvonne Gale, ЮЛИЯ)1153 (Given - Provider: Paulette Flannery, ЮЛИЯ)1714 (Given - Provider: Paulette Flannery, ЮЛИЯ)2120 (Given - Provider: Yvonne Gale, ЮЛИЯ) 0123 (Given - Provider: Yvonne Gale RN)0543 (Given - Provider: Yvonne Gale, ЮЛИЯ)1219 (Given - Provider: Paulette Flannery, ЮЛИЯ) OMNIPAQUE (iohexol) 240 mg iodine/mL 50 mL [...] tolerate oral. 0149 (Given - Provider: Vandana Vilchis, ЮЛИЯ)0616 (Given - Provider: Vandana Vilchis RN) Linked [...] 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, VRE- urine 10/31/2024 10/31/2024 Assessment Noted Time PHQ-9 Depression Total Score: 17 025 11:00 AM EDT documented as of this encounter Care Teams [employer] Business Analyst Relationship Specialty Start Date End Date Enedina Mcguire NP [address] [place], [place] [id number] PCP - General Internal Medicine 10/05/24 Alicia Pantoja, ЮЛИЯ Txp Post Coordinator Transplant Hepatology 10/28/24 documented as of this encounter
--- OUTSIDE RECORDS SUMMARY | 2024-10-25 22:30 | XMS_ITS | Encounter Summary ---
Author Organization [facility] Address [address] [place] [id number] Care Team Providers Care Fabricator Artificial Breast Name Role Phone Enedina Mcguire NP Primary Care Provider [phone] Source Comments This information has been disclosed [...] release of HIV test results or diagnoses. [id number] Reason for Visit * Auth/Cert (Routine) Specialty Diagnoses / Procedures Referred By Shane hernadez Referred To Contact Surgical Intensive Care Diagnoses Liver transplant recipient (CMS-HCC) cirrhosis and CKD Procedures LIVER-KIDNEY TRANSPLANT [facility] SICU [address] [place] [address] Phone: tel: Referral ID Status Reason Start Date Expiration Date Visits Re quested Visits Authorized [id number] 1 1 Encounter Details Date Type Department Care Team (Late st Contact Info) Description 10/25/2024 10:30 PM EDT - 10/26/2024 6:12 AM EDT Surgery [facility] PERIOP [address] [place] [address] Semaj Mcnair III, MD [address] [facility] [address] [place] [address] LIVER TRANSPLANT Surgery Details Date/Time [...] the past 12 months has th e [employer], gas, oil, or water [employer] threatened to shut off services in your [...] AM EDT documented in this encounter Discharge Instructions * [...] kept under 2 gm/day. Please discuss withyour group rooms coordinator if you have any question about appropriate dose to take. Other Instructions: Call post-liver transplant clinic with questions [phone] or call [facility] at [phone] and ask for the liver health safety coordinator communications program manager if you experience any of the following: [...] Center 11/04/2024 8:40 AM LTRA SURGERY, [facility] LTRA HOX HOX 11/04/2024 10:10 AM LTRA HEPATORENAL HOX LTRA HOX HOX 11/25/2024 9:00 AM NAA Merida [place] [facility] 12/02/2024 2:00 PM Bossman Huffman MD [place] [facility] 02/25/2025 10:50 AM Bruno [...] 10/27/2024 blood-glucose meter (TRUE METRIX GLUCOSE METER) [facility] [...] capsule 5 10/27/2024 naloxone (NARCAN) 4 mg/actuation [place] Apply 1 spray in one nostril if [...] 28 tablet 11/02/2024 10:20 AM EDT 10/31/2024 sodium bicarbonate 650 MG tablet Take 2 tablets (1,300 mg total) by mouth 2 times a day. 28 tablet 11/02/2024 10:20 AM EDT 10/31/2024 documented as of this encounter Progress Notes * Shaji Gamino, PharmD - 11/02/2024 10:34 AM EDT Transplant Pharmacy Note Discharge Medication Education, Evaluation and Transition Name: Blair Gilbert Discharge prescriptions were dispensed from Discharge Pharmacy, other than tacrolimus and mycophenolate which were dispensed through [facility] per insurance requirements. Patient's [...] fair Expected caregiver involvement?: is primary med dependency case manager Need for additional education in clinic?: routine reinforcement only Future medications to be obtained from, if known (select one): Tac/MMF to be filled from [facility] Financial concerns (if [...] Disp-30 tablet, R-0 naloxone (NARCAN) 4 mg/actuation [place] Apply 1 spray in one nostril if [...] Comments: Reason for Stopping: Eduardo Gamino, Pharm.D., [facility] Clinical Specialist Contact via Chatwala Secure Chat * Froylan Hendrickson MD - 11/01/2024 8:04 AM EDT Liver Transplant Surgery Progress Note Name: Blair Gilbert CSN: [id number] Date: 11/01/2024 8:06 AM OR Date: 10/25/2024 [...] at 10/31/2024 4:38 PM EDT US Duplex Lzf-Fhk-Ydjitpu Comp Result Date: 10/31/2024 IMPRESSION: RIGHT UPPER QUADRANT Normal sonographic appearance of the transplant liver with small volume of ascites. LIVER DOPPLER Duplex Doppler evaluation of transplant hepatic vasculature within normal limits. Report Verified by: eDclan Cerda MD at 10/31/2024 10:35 AM EDT [...] 10/25/2024 - 10/27/2024. Plan: Liver transplant recipient ([facility]) [Z94.4] Neuro: - Multimodal pain control: [...] PhD Transplant Surgery * Ben Garcia Abhishek, DMITRY - 10/31/2024 3:24 PM EDT TXP - Follow Up [facility] Medical Nutrition Therapy Transplant Brief [...] very high calorie protein supplement ([facility] only) Pertinent Information: Pt seen for [...] Based on DBW of 93.1 kg Kcals/day: 5358-2129 (25-30 kcals/kg) Protein g/day: 140-190 (1.5-2.0 g/kg) [...] Dietitian - Solid Organ Transplant Contact via Chatwala Chat * Keon Dobson - 10/31/2024 2:35 PM EDT [facility] Spiritual Care Volunteer Visit PATIENT NAME: Blair Gilbert ROOM:8025/80 Jehovah'S Witness Affiliation:Spiritism Blair Gilbert was visited by a volunteer today. No needs requiring a visit from a staff beamer operator were expressed at that time. Care Provided: Communion, Prayer/ blessing Please page our service at [phone] as needs arise for patient and/or family. Fr Dean Dobson Spiritism beamer operator Spiritual Care Dept * Brittany Horne PT [...] transplant recipient (CMS-HCC) [Z94.4] Date: 10/31/2024 Room: [facility] Reviewed Pertinent hospital course: Yes [...] issued by OT: Long-handled sponge, Sock aid, Inside Steward/Stewardess, Other (comment) Equipment issued by OT comment: leg fresco artist Assessment Assessment: Decreased ADL status, Decreased IADLs, [...] IADL task (Goal met and continued 10/31) [facility] Goal : Pt will complete bathing assessment and transfer MCFP goal to be met in: 2 weeks [...] Surgeon: Semaj Mcnair III, MD; Location: OR; Service:Transplant; Laterality: N/A; [1] Patient Active Problem List Diagnosis Decompensated [place] Acute kidney injury superimposed on CKD [place] Alcohol use disorder Metabolic encephalopathy Hypertension Other hyperlipidemia Thrombocytopenia [place] Renal mass, left Abdominal pain Hypokalemia CKD (chronic kidney disease) stage 4, GFR 15-29 ml/min [place] Metabolic acidosis with normal anion gap and bicarbonate losses GERD (gastroesophageal reflux disease) Hypothyroidism Itching Anemia BRBPR (bright red blood per rectum) SBP (spontaneous bacterial peritonitis) [place] C Diff Diarrhea C. difficile diarrhea [...] 0659 10/31/24 07 - 11/01/24 0659 Shift 6376-8058 5975-0728 0420-4566 24 Hour Total 2856-3456 7849-5425 3161-0707 24 Hour Total INTAKE P.O. 240 240 P.O. 240 240 Shift Total(mL/kg) 240(1.9) 240(1.9) OUTPUT Urine(mL/kg/hr) 1850(1.8) 600(0.6) 600(0.6) 3050(1) 350 350 Urine 800 606 004 7225 350 350 Urine Occurrence 2 x 2 [...] with further concerns Lavell Kramer MD 10/31/[phone] * Priti Geiger CNP - 10/31/2024 10:06 AM EDT Liver Transplant Surgery Progress Note Name: Blair Gilbert CSN: [id number] Date: 10/31/2024 10:06 AM OR Date: 10/25/2024 [...] 10/28/24 1109 LACTATE 0.3* Imaging US Duplex Ata-Clc-Knscfhi Comp Result Date: 10/28/2024 IMPRESSION: ABDOMINAL ULTRASOUND [...] 10/25/2024 - 10/27/2024. Plan: Liver transplant recipient ([facility]) [Z94.4] Neuro: - Multimodal pain control: [...] Transplant Nephrology Progress Note Patient: Blair Gilbert [id number] Date of Admit: 10/25/2024. 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 Lauren Santos, SAMSON, MOLECULAR BIOLOGY PROFESSOR, PARTS ROOM CLERK- Transplant Nephrology [phone] Preferred contact: secure chat The HPI, ROS, [...] 0659 10/30/24 07 - 10/31/24 0659 Shift 7232-5501 6266-3278 6921-0995 24 Hour Total 9651-4685 7093-4857 8874-2734 24 Hour Total INTAKE P.O. 240 240 480 P.O. 240 240 480 IV Piggyback 87.2 87.2 Volume (mL) (micafungin (MYCAMINE) 50 mg in sodium chloride 0.9 % 100 mL Vizl1Fwb IVPB) 87.2 87.2 Shift Total(mL/kg) 240(2) 327.2(2.7) 567.2(4.4) OUTPUT Urine(mL/kg/hr) 600(0.6) 1175(1.2) 450(0.4) 2225(0.7) 550 550 Output (mL) (IUC (Berkowitz) Triple-lumen (3-Way) 18 Fr.) 600 2776 732 6578 550 550 Drains 175 245 100 520 [...] month of prophylaxis Lavell Kramer MD 10/30/[phone] * Priti Geiger CNP - 10/30/2024 10:36 AM EDT Liver Transplant Surgery Progress Note Name: Blair Gilbert CSN: [id number] Date: 10/30/2024 10:37 AM OR Date: 10/25/2024 [...] displayed. Recent Labs 10/27/24 1713 10/28/243 10/28/24 1109 INR 1.1 1.1 1.1 PROTIME [...] 1109 LACTATE 0.5 0.3* Imaging US Duplex Crk-Nyw-Mgpdedu Comp Result Date: 10/28/2024 IMPRESSION: ABDOMINAL ULTRASOUND [...] 10/25/2024 - 10/27/2024. Plan: Liver transplant recipient ([facility]) [Z94.4] Neuro: - Multimodal pain control: [...] Transplant Nephrology Progress Note Patient: Blair Gilbert [id number] Date of Admit: 10/25/2024. 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 Lauren Santos, DNP, MOLECULAR BIOLOGY PROFESSOR, PARTS ROOM CLERK- Transplant Nephrology [phone] Preferred contact: secure chat The HPI, ROS, [...] EDT Pt seen, examined, and discussed with BUSINESS ANALYTICS MANAGER on 10/30/2024. reviewed the chart including the labs and imaging studies. My additional comments below. 39 y.o. 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 Admit Weight: 270 lb (122.5 kg) [...] Based on DBW of 93.1 kg Kcals/day: 5358-5473 (25-30 kcals/kg) Protein g/day: 140-190 (1.5-2.0 g/kg) [...] Dietitian - Solid Organ Transplant Contact via Chatwala Chat * Anita Crystal, PT - 10/29/2024 2:04 PM EDT Physical Therapy Initial Assessment Name: Blair Gilbert : 1985 Attending Physician: Semaj Mcnair III, MD Admission Diagnosis: Liver transplant recipient (CMS-HCC) [Z94.4] Date: 10/29/2024 Room: [place] [address] [address] Reviewed Pertinent hospital course: Yes Hospital Course [...] Will report pain with functional mobility at: 08/21 or less [facility] Goal : Pt will ambulate 250' mod [...] Patient Active Problem List Diagnosis Decompensated cirrhosis ([facility]) Acute kidney injury superimposed on CKD ([facility] Alcohol use disorder Metabolic encephalopathy Hypertension Other hyperlipidemia Thrombocytopenia ([facility]) Renal mass, left Abdominal pain Hypokalemia CKD (chronic kidney disease) stage 4, GFR 15-29 ml/min ([facility]) Metabolic acidosis with normal anion gap and bicarbonate losses GERD (gastroesophageal reflux disease) Hypothyroidism Itching Anemia BRBPR (bright red blood per rectum) SBP (spontaneous bacterial peritonitis) ([facility]) C Diff Diarrhea C. difficile diarrhea Neck pain with history of cervical spinal surgery * Shanel Pabon, OT - 10/29/2024 1:23 PM EDT Occupational Therapy Initial Assessment Name: Blair Gilbert : 1985 Attending Physician: Semaj Mcnair III, MD Admission Diagnosis: Liver transplant recipient ([facility]) [Z94.4] Date: 10/29/2024 Room: [place] [address] [address] Reviewed Pertinent hospital course: Yes Hospital Course [...] Intervention(s): Ambulation/increased activity;Repositioned Therapist reported pain to: embroidery worker Oxygen Supplemental Oxygen Supplemental Oxygen: None (Room [...] distance ambulation in prep for IADL task Corporate Staff Accountant Goal : Pt will complete bathing assessment and transfer termite exterminator goal to be met in: 2 weeks [...] Alcoholic cirrhosis of liver (CMS-HCC) Esophageal varices ([facility]) Hepatorenal syndrome ([facility]) Hypertension Other hyperlipidemia 07/26/2024 Renal cell carcinoma ([facility]) Thrombocytopenia ([facility]) Thyroid disease Past Surgical History Past [...] packing; Surgeon: Semaj Mcnair III, MD; Location: [facility]; Service: Transplant; Laterality: N/A; [1] Patient Active Problem List Diagnosis Decompensated cirrhosis ([facility]) Acute kidney injury superimposed on CKD ([facility]) Alcohol use disorder Metabolic encephalopathy Hypertension Other hyperlipidemia Thrombocytopenia ([facility]) Renal mass, left Abdominal pain Hypokalemia CKD (chronic kidney disease) stage 4, GFR 15-29 ml/min ([facility]) Metabolic acidosis with normal anion gap and bicarbonate losses GERD (gastroesophageal reflux disease) Hypothyroidism Itching Anemia BRBPR (bright red blood per rectum) SBP (spontaneous bacterial peritonitis) ([facility]) C Diff Diarrhea C. difficile diarrhea Neck pain with history of cervical spinal surgery * Caron Santos CNP - 10/29/2024 10:30 AM EDT Images from the original note were not included. Transplant Nephrology Progress Note Patient: Blair Gilbert [id number] SICU-28/USIC-28 Date of Admit: 10/25/2024. 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 Lauren Santos, SAMSON, MOLECULAR BIOLOGY PROFESSOR, PARTS ROOM CLERK- Transplant Nephrology [phone] Preferred contact: secure chat The HPI, ROS, [...] Aaron Gonzalez MD, MEd, FASN * Kenyetta August - 10/29/2024 10:07 AM EDT Liver Transplant Surgery Progress Note Name: Blair Gilbert CSN: [id number] Date: 10/29/2024 10:08 AM OR Date: 10/25/2024 [...] LACTATE 0.4* 0.5 0.3* Imaging US Duplex Nbs-Ahe-Wxhpmpl Comp Result Date: 10/28/2024 IMPRESSION: ABDOMINAL ULTRASOUND [...] at 10/27/2024 10:38 AM EDT US Duplex Sqx-Xih-Rkmqlcs Comp Result Date: 10/27/2024 IMPRESSION: RIGHT UPPER [...] 10/25/2024 - 10/27/2024. Plan: Liver transplant recipient ([facility]) [Z94.4] Neuro: - Multimodal pain control: [...] SCDs DISPO: floor KENYETTA HARTMAN, MS4 [facility] Surgery 10:08 AM 10/29/2024 Cosigned by [...] 10/28/24699 - 10/29/2465810/29/24699 - 10/30/24 0659 Shift 6553-9786 0847-0492 1440-7301 24 Hour Total 4159-3474 2137-7897 3923-1738 24 Hour Total INTAKE P.O. 240 0 [...] IV infusion) 253.9 374.7 775.6 1404.2 Blood 2306 985 6349 Albumin 750 750 Volume (Transfuse RBC Transfusion Rate: Per dept routine) 310 310 Volume (Transfuse RBC Transfusion Rate: Per dept routine) 271 271 IV Piggyback 918.4 854 84 7666.4 Volume (mL) (micafungin (MYCAMINE) 50 mg in sodium chloride 0.9 % 100 mL Tcks7Clq IVPB) 99.9 99.9 Volume (mL) (albumin human [...] month of prophylaxis Lavell Kramer MD 10/29/[phone] * John Moreno MD - 10/29/2024 6:47 AM EDT SURGICAL ICU PROGRESS NOTE 10/29/2024 6:47 AM Name: Blair Gilbert CSN: [id number] HPI: Blair Gilbert is a 39 y.o. [...] to 4 times a day. DEXCOM G7 CASE AIDE Misc Use reader as directed. DEXCOM [...] and at bedtime. lancets (ACCU-CHEK SOFTCLIX LANCETS) Misc Use to test blood sugar up to 4 times a day. methocarbamoL (ROBAXIN) 500 MG tablet Take 1 tablet (500 mg total) by mouth 3 times a day. naloxone (NARCAN) 4 mg/actuation [place] Apply 1 spray in one nostril if [...] Nightly (2099) methocarbamoL 1,000 mg Oral QID methylPREDNISolone sod [...] 37 37 35 PO2ART 245* 182* 92 BJZ1JZJ 22 21* 21* BEART -4.2* -4.8* -4.6* [...] at baseline or with provocation, shows no antvg-ix-eoaf atrial level shunt. - Pulmonary arteries: Systolic [...] Home pantoprazole 40mg daily, continue Last BM: TOUCH UP PAINTER HAND - suppository today Bowel regimen: Miralax today, [...] results for input(s): TEGANGLE , TEGKTIME , USWUVXZR25 , TEGMAXAMPL , TEGRTIME , CBMZ in [...] in sodium chloride 0.9 % 100 mL Fdwk3Wpb IVPB 50 mg Every 24 hours 10/27/2024 -- Admin Instructions: PROTECT FROM LIGHT FLUSH LINE w/NSS PRIOR TO ADMINISTRATION Use Bdqd3Vwu Adapter - Mix Thoroughly Before Administration Route: [...] BID Continuous Infusions: HYDROmorphone 6 mg/30 mL JAVA SQL DEVELOPER norepinephrine 4 mcg/min (10/27/24 2318) sodium [...] - 10/28/2465810/28/24 07 - 10/29/24 0659 Shift 6958-5059 9906-5607 0067-0954 24 Hour Total 8840-0176 0856-8025 2376-9206 24 Hour Total INTAKE P.O. 0 120 [...] in sodium chloride 0.9 % 100 mL Fask0Inf IVPB) 100 100 Volume (mL) (albumin human 5%) 126 126 Volume (mL) (potassium chloride (KCl)/Sterile water 50 mL 20 mEq/50 mL IVPB 20 mEq) 100 100 Volume (mL) (AMPicillin 1 g in sodium chloride 0.9% 100 mL IVPB (Yxhm8Ctm)) 100.1 57 42.9 200 Volume (mL) (mycophenolate (CELLCEPT) 500 mg in dextrose 5% in water (D5W) 50 mL IVPB) 50 5.3 55.3 Shift Total(mL/kg) 2079.3(17) 1161(9.5) 787.3(6.4) 4027.6(32.9) OUTPUT Urine(mL/kg/hr) 2195(2.2) 1000(1) 900(0.9) 4095(1.4) 490 490 Urine 360 360 Output (mL) (IUC (Berkowitz) Triple-lumen (3-Way) 18 Fr.) 1835 0624 426 7300 490 490 Emesis/NG output 50 50 Drainage [...] month of prophylaxis Lavell Kramer MD 10/28/[phone] * Caron Santos CNP - 10/28/2024 9:00 AM EDT Images from the original note were not included. Transplant Nephrology Progress Note Patient: Blair Gilbert [id number] SICU-28/USIC- Date of Admit: 10/25/2024. 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 KT US 6/16/25: WNL UOP: 4.2 L B Renal Function: [...] 10/27/2024 PCO2 35 10/27/2024 PO2ART 92 10/27/2024 YNB6OFO 21 (L) 10/27/2024 BEART -4.6 (L) 10/27/2024 HSJ6TNR 95.4 10/27/2024 K2VSBHUV 98 10/27/2024 Hemodynamics / Cardiovascular Status: Goal [...] % Iron Saturation: SEE COMMENT on 10/25/2024 MryslhjZ91: No results found for requested labs within [...] preliminary until attending attestation. Lauren Santos, SAMSON, MOLECULAR BIOLOGY PROFESSOR, PARTS ROOM CLERK- Transplant Nephrology [phone] Preferred contact: secure chat The HPI, ROS, [...] EDT Pt seen, examined, and discussed with BUSINESS ANALYTICS MANAGER on 10/28/2024. reviewed the chart including the labs and imaging studies. My additional comments below. 39 y.o. 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 S/p SLK 10/25-10/26 Has great UOP 4.2L Aaron Gonzalez MD, MEd, FASN * Shay Plata MD - 10/28/2024 7:41 AM EDT Liver Transplant Surgery Progress Note Name: Blair Gilbert CSN: [id number] Date: 10/28/2024 11:05 AM OR Date: 10/25/2024 - 10/27/2024 Subjective: 1 Day Post-Op Received one unit pRBCs overnight On low dose levo this morning Increasing tachycardia Reports worsening pain, on JAVA SQL DEVELOPER Tolerated sips of clears No nausea/vomiting, [...] Oral BID Continuous: HYDROmorphone 6 mg/30 mL JAVA SQL DEVELOPER norepinephrine Stopped (10/28/24 0637) sodium chloride [...] at 10/27/2024 10:38 AM EDT US Duplex Oph-Acm-Beuxqij Comp Result Date: 10/27/2024 IMPRESSION: RIGHT UPPER [...] 10/25/2024 - 10/27/2024. Plan: Liver transplant recipient ([facility]) [Z94.4] Neuro: - Multimodal pain control: dilaudid JAVA SQL DEVELOPER, tylenol, robaxin. PRN dilaudid for breakthrough [...] SCDs DISPO: SICU SHAY PLATA MD, MS4 [facility] General Surgery 11:05 AM 10/28/2024 Cosigned [...] 10/28/2024 6:17 AM Name: Blair Gilbert CSN: [id number] HPI: Blair Gilbert is a 39 y.o. [...] by mouth every 8 hours. alcohol swabs Pad Use as instructed. apixaban (ELIQUIS) 2.5 mg Tab Take 1 tablet (2.5 mg total) by mouth 2 times a day. aspirin 81 MG chewable tablet Chew 1 tablet (81 mg total) by mouth daily. atovaquone (MEPRON) 750 mg/5 mL suspension Take 10 mLs (1,500 mg total) by mouth daily for 30 doses. blood sugar diagnostic (GLUCOSE BLOOD) [facility] Use to test blood sugar up to 4 times a day. blood-glucose meter (TRUE METRIX GLUCOSE METER) Misc Use to test blood sugar up to 4 times a day. DEXCOM G7 CASE AIDE Misc Use reader as directed. DEXCOM [...] times a day. naloxone (NARCAN) 4 mg/actuation [place] Apply 1 spray in one nostril if needed. Call 911. May repeat dose in other nostril if no response in 3 minutes. pen needle, diabetic 32 gauge x 532 Ndle For use with insulin pen. Use [...] Oral BID Continuous: HYDROmorphone 6 mg/30 mL JAVA SQL DEVELOPER insulin regular in 0.9 % sodium [...] 37 37 35 PO2ART 245* 182* 92 TXZ2PGY 22 21* 21* BEART -4.2* -4.8* -4.6* [...] at baseline or with provocation, shows no xzekc-tr-wzea atrial level shunt. - Pulmonary arteries: Systolic [...] while intubated,convert to PO today Last BM: TOUCH UP PAINTER HAND Bowel regimen: Miralax today, hold senna til [...] ml IV Fluids: HYDROmorphone 6 mg/30 mL JAVA SQL DEVELOPER insulin regular in 0.9 % sodium chloride, Last Rate: 2.5 Units/hr (10/27/24 1900) norepinephrine, Last Rate: 4 mcg/min (10/27/24 2318) sodium chloride 0.45% (1/2 NS), Last Rate: Stopped (10/27/24 1301) sodium chloride 0.9 %, Last Rate: Stopped (06/16/25 0252) sodium chloride 0.9 %, Last Rate: [...] RENAL/ Recent Labs 10/27/24 1713 10/28/24 0005 10/28/24412 BUN 61* 59* 58* CREATININE 2.42* 2.42* [...] 72 hours. Recent Labs 10/27/24 0816 10/27/24 17110/28/243 INR 1.2* 1.1 1.1 PROTIME 16.2* 15.2* 14.6 No results for input(s): TEGANGLE , TEGKTIME , BWAYJKVS22 , TEGMAXAMPL , TEGRTIME , CBMZ in [...] CBC per protocol - Small concern for HCONG as he was given 1 platelet and [...] in sodium chloride 0.9% 100 mL IVPB (Ggrm4Rhx) (Completed) 1 g Every 6 hours scheduled 10/26/2024 10/28/2024 Admin Instructions: Dosage may need to be adjusted for renal dysfunction. Full dose is 1g IV q6h Use Kjfb7Dgd Adapter - Mix Thoroughly Before Administration Notes to Pharmacy: On food and beverage order clerk estimated creatinine clearance is 35.9 [...] in sodium chloride 0.9 % 100 mL Bgpi8Uif IVPB 50 mg Every 24 hours 10/27/2024 -- Admin Instructions: PROTECT FROM LIGHT FLUSH LINE w/NSS PRIOR TO ADMINISTRATION Use Axki2Ylk Adapter - Mix Thoroughly Before Administration Route: [...] R IJ Mac Arterial Line? R radial [place] Urinary Catheter? Berkowitz - Reason: Adequate I/O [...] Risk Score of 10 and [facility] [facility]ENTER transplant protocol, I recommend discharging [...] Solid Organ Transplant Clinical Specialist Contact via Chatwala Secure Chat Preferred O. [phone] * Chinedu Almeida RRT - 10/27/2024 1:10 [...] Yes MD Order No SBT No Yes [place] Coma Scale > 8 Yes Lab Results Component Value Date PHART 7.36 10/27/2024 PCO2 37 10/27/2024 PO2ART 245 (H) 10/27/2024 [id number] 22 10/27/2024 BEART -4.2 (L) 10/27/2024 LCJ3TXO 96.5 10/27/2024 O8HKKTEM 100 10/27/2024 Based on this SBT assessment [...] Surgery Progress Note Name: Blair Gilbert CSN: [id number] Date: 10/27/2024 11:40 AM OR Date: 10/25/2024 - 10/27/2024 Subjective: * Day of Surgery * Remains intubated in SICU Sedated but appropriately nods to questions No acute distress Objective: BP 100/48 Pulse 89 Temp 99 ??F (37.2 ??C) ([place]) Resp 9 Ht 6' 4 (1.93 m) [...] Stopped (10/27/24251) sodium chloride 0.9 % Stopped (10/27/24 0901) [...] at 10/27/2024 10:38 AM EDT US Duplex Gjo-Lnw-Iqbagzf Comp Result Date: 10/27/2024 IMPRESSION: RIGHT UPPER [...] 10/27/2024. Problem List[1] Plan: Liver transplant recipient ([facility]-HCC) [Z94.4] Neuro: - Propofol/fentanyl CV: - [...] SQH, SCDs DISPO: SICU KENYETTA HARTMAN, MS4 [facility] Surgery 11:40 AM 10/27/2024 [1] Patient Active Problem List Diagnosis Decompensated cirrhosis ([facility]-HCC) Acute kidney injury superimposed on CKD ([facility]-HCC) Alcohol use disorder Metabolic encephalopathy Hypertension Other hyperlipidemia Thrombocytopenia ([facility]-HCC) Renal mass, left Abdominal pain Hypokalemia CKD (chronic kidney disease) stage 4, GFR 15-29 ml/min (CMS-HCC) Metabolic acidosis with normal anion gap and bicarbonate losses GERD (gastroesophageal reflux disease) Hypothyroidism Itching Anemia BRBPR (bright red blood per rectum) SBP (spontaneous bacterial peritonitis) ([facility]-HCC) C Diff Diarrhea C. difficile diarrhea [...] 10/27/2024 7:16 AM Name: Blair Gilbert CSN: [id number] HPI: Blair Gilbert is a 39 y.o. [...] times a day. naloxone (NARCAN) 4 mg/actuation [place] Apply 1 spray in one nostril if [...] (!) 20 (10/27/2412) Base Excess: (!) -6.4 (10/27/24 0013) SaO2: 100 (10/27/24 0013) Recent Labs 10/26/24 0610 10/26/24 1048 10/27/24 0013 PHART 7.27* 7.37 7.32* PCO2 47* 36 37 PO2ART 127* 91 137* GZQ4MQF 21* 22 20* BEART -5.4* -3.9* -6.4* [...] at baseline or with provocation, shows no lpxsv-ku-rjti atrial level shunt. - Pulmonary arteries: Systolic [...] IV pantoprazole while intubated, NPO Last BM: TOUCH UP PAINTER HAND Bowel regimen: Senna/Miralax when able Nausea: Zofran [...] 10/27/2024 0715 Gross per 24 hour Intake 93662.82 ml Output 7060 ml Net 6224.82 ml [...] results for input(s): TEGANGLE , TEGKTIME , CJEPPXEC57 , TEGMAXAMPL , TEGRTIME , CBMZ in [...] in sodium chloride 0.9% 100 mL IVPB (Jhcp0Bcc) 1 g Every 6 hours scheduled Admin Instructions: Dosage may need to be adjusted for renal dysfunction. Full dose is 1g IV q6h Use Pqvf3Qif Adapter - Mix Thoroughly Before Administration Notes to Pharmacy: On food and beverage order clerk estimated creatinine clearance is 35.9 mL/min (A) (based on SCr of 3.87 mg/dL (H)). Route: Intravenous Linked Group 1: Placed in And Linked Group cefTRIAXone (ROCEPHIN) 2 g in sodium chloride 0.9 % 100 mL Ntdx5Hmr Continuous - One Step Medications Only 10/27/2024 [...] Agitation Sedation Scale: -2 Overall CAM-ICU : ([facility]) A/P: - ADDY # Mood [...] R IJ Mac Arterial Line? R radial [place] Urinary Catheter? 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 naloxone (NARCAN) 4 mg/actuation [place] Apply 1 spray in one nostril if [...] Strain: Low Risk (07/09/2024) Received from [facility] Overall Financial Resource Strain (CARDIA) Difficulty of [...] No Physical Activity: Unknown (07/14/2024) Received from [facility] Exercise Vital Sign Days of Exercise per Week: Patient unable to answer Minutes of Exercise per Session: Not on file Stress: Patient Unable To Answer (07/14/2024) Received from [facility] [place] of Occupational Health - Occupational Stress Questionnaire Feeling of Stress : Patient unable to answer Social Connections: Patient Unable To Answer (07/14/2024) Received from [facility] Social Connection and Isolation Panel [NHANES] Frequency of Communication with Friends and Family: Patient unable to answer Frequency of Social Gatherings with Friends and Family: Patient unable to answer Attends Jehovah'S Witness Services: Patient unable to answer Active Member [...] -- 5.4 ALBUMIN 3.2* 3.1* Invalid input(s): [facility] Other labs: Imaging Studies No results [...] admitted to SICU post-op. LEANDRA OG MD [facility] Surgery Liver Transplant Pager: [phone] 8:24 PM 10/25/2024 Cosigned by Semaj [...] Name: Blair Gilbert Date: 1985 Billing #: [id number] Date of Procedure: 10/25/2024 Diagnosis: End Stage Renal Disease Procedure: 1. Donor Kidney Transplant 2. Back Bench Preparation Donor Kidney 3. Baseline Kidney transplant biopsy 4. Insertion of Indwelling Stent 5. Removal of Perihepatic packing Surgeons * Flaquito Ba MD Licensed Surveyor MD Shayan Findings: Low Hockey stick incision [...] donor was ABO O and UNOS ID [id number], Match Run [id number] ([facility]). This donor was a Donor after cardiac [...] then wanded with the lap detection assistant infant teacher. The incision was ex tented 2 inches [...] and closure. Flaquito Ba MD Transplant Surgeon home theater installer * Flaquito Ba MD - 10/27/2024 6:15 AM EDT TRANSPLANT KIDNEY with bile duct reconstruction Brief Op Note Blair Gilbert 10/27/2024 Pre-op Diagnosis: Acute kidney injury superimposed on CKD (CMS-HCC) [N17.9, N18.9] Post-op Diagnosis: same Procedure(s): TRANSPLANT KIDNEY Surgeon(s): MD Semaj Washington III, MD Anesthesia: General Endotracheal Staff: Systems Auditor: Chinedu Quinn RN Scrub Person: ST Angela Fellow: Kemar Sahni MD 2nd Systems Auditor: Marty Clark RN 3rd Systems Auditor: ЮЛИЯ Gannoney 3 day Drains: Intraabdominal (perihepatic) UNOS ID [id number], Match Run [id number] Kid WIT 27 min Kid CIT 33 [...] (Berkowitz) Triple-lumen (3-Way) 18 Fr. (Active) Status [place] Drainage 10/26/241999 Collection Container Standard drainage bag [...] bile duct reconstruction Brief Op Note Blair Justin 10/25/2024 - 10/27/2024 Pre-op Diagnosis: ESLD Post-op Diagnosis: Same Procedure(s): Abdominal washout Removal of Perihepatic packing- 5 Raytecs 2 laps Bile Duct Anastomosis Kidney transplant Surgeon(s): MD Bal Washingtonph Vinita Mcnair III, MD Anesthesia: General Endotracheal Staff: Systems Auditor: Chinedu Quinn RN Relief Systems Auditor: Michela Amos RN Relief Scrub: Stephani Blake RN Scrub Person: ST Angela Fellow: Kemar Sahni MD 2nd Systems Auditor: Marty Clark RN 3rd Systems Auditor: Candis Mcdaniel RN Estimated Blood Loss: 300 mL Specimens: Specimens ID Description Commments Type Source Tests Collected By Collected At 1 1) perfusate 1) perfusate Fluid Kidney Left ANAEROBIC CULTURE FUNGUS CULTURE ROUTINE CULTURE PLUS STAIN Semaj Vinita Mcnair III, MD 10/27/24 0215 A Baseline Renal Biopsy Tissue Kidney Left SURGICAL PATHOLOGY EXAM Semaj Vinita Mcnair III, MD 10/27/24 0238 B B) Right lobe liver biopsy Tissue Liver SURGICAL PATHOLOGY EXAM Semaj Mcnair III, MD 10/27/24 0620 C C) Left lobe liver biopsy Tissue Liver SURGICAL PATHOLOGY EXAM Semaj Vinita Mcnair III, MD 10/27/24 0638 Drains: NG/OG [...] (Berkowitz) Triple-lumen (3-Way) 18 Fr. (Active) Status [place] Drainage 10/26/241999 Collection Container Standard drainage bag [...] day Drains: 2 Intraabdominal (perihepatic) UNOS ID [id number], Match Run [id number] Donor: young DCD NRP Kid WIT 27 [...] III, MD - 10/27/2024 12:00 AM EDT [facility] PATIENT NAME: BLAIR GILBERT DATE OF : 1985 CSN: [id number] PHYSICIAN: Semaj Mcnair III, MD ADMIT DATE: 10/25/2024 DICTATED BY: Semaj Mcnair III, MD SURGERY DATE: 10/27/2024 OPERATIVE REPORT SURGEON: Semaj Mcnair III, MD CHAIN MAKER SURGEON: Kemar Sahni MD. PREOPERATIVE DIAGNOSIS: Open [...] were made hemostatic with the argon beam electronic science teacher. We assessed the flows of the [...] a mucocele formation. We then performed a xxsb-wu-bwzu choledochocholedochostomy in an end to end fashion [...] small umbilicalhernia that was closed with a oxqrvz-fy-zqjbv 0 PDS suture. At this point, we [...] complications. SEMAJ MCNAIR III, MD RCQ/AQ JOB#: [id number] * Semaj Mcnair III, MD - 10/26/2024 7:00 AM EDT Patient Name: Blair Gilbert Date: 1985 Billing #: [id number] Date of Procedure: 10/25/2024 - 10/26/2024 Diagnosis: Chronic Hepatic Failure without coma Procedure: 1. Orthotopic Liver Transplant 2. Back Bench Preparation Donor Liver 3. Temporary portocaval shunt 4. Perihepatic packing for control of hemorrhage 5. Placement of external choledochal stent 6. Temporary abdominal closure Attending surgeons: Semaj Mcnair III, MD Licensed Surveyor Surgeon(s): Sveta Judge MD Findings: Whole organ [...] This donor was ABO O and UNOSID [id number], Match Run [id number]. This was a 42-year-old donation after circulatory [...] After completion of the outflow anastomosis, a Bangladeshi clamp was placed across the donor suprahepatic [...] Sveta Alves III, MD Anesthesia: General Staff: Systems Auditor: Mak Maher RN; Marty Clark RN Scrub Person: ST Angela Resident: Thuy Leon MD manager pest: Jose Daniel Arana RRT Estimated Blood Loss: [...] Number of days: 5 Surgery Information: -UNOS#: [id number] -ABO: O to O -Recipient: SLK candidate [...] 1:19 PM EDTAssociated Order(s): IP CONSULT TO PRODUCT DELIVERY SPECIALIST [facility] Transplant Discharge Education Note Assessment: [...] Gomez MSN, RN, NPD- Diabetes Education Office [phone] Schedule: M-F 8:00am-4:30pm * Ben Weiss RD - 10/27/2024 4:06 PM EDTAssociated Order(s): IP CONSULT TO NUTRITION SERVICES; IP CONSULT TO NUTRITION SERVICES TXP - Initial [facility] Medical Nutrition Therapy Reason(s) for [...] I/O: +23.2L net volume. Last BM Date: (TOUCH UP PAINTER HAND). Admit Weight: 270 lb (122.5 kg) Current Weight: (!) 270 lb (122.5 kg) Pertinent Labs: Recent Labs 10/26/242 10/27/24 0013 10/27/24 1440 WBC 10.0 5.0 [...] 1.8 PHOS 4.4 5.3* 5.5* Recent Labs 10/26/242 10/27/24 0013 10/27/24 0800 AST 374* 157* [...] 2 mcg/min (10/27/24 1416) sodium chloride 0.45% (2 NS) 231 mL/hr (10/27/24 1057) sodium chloride [...] Based on DBW of 93.1 kg Kcals/day: 2957-6248 (25-30 kcals/kg) Protein g/day: 140-190 (1.5-2.0 g/kg) [...] Dietitian - Solid Organ Transplant Contact via Chatwala Chat * Lavell Kramer MD - 10/27/2024 11:09 AM EDTAssociated Order(s): INPATIENT CONSULT TO TRANSPLANT INFECTIOUS DISEASES Infectious Disease Consultation Patient: Blair Gilbert CSN: [id number] Assessment & Plan 39 y.o. M s/p [...] blood cx's if febrile Lavell Kramer MD [phone] Chief Complaint Long Qtc History of Present [...] Strain: Low Risk (07/09/2024) Received from [facility] Overall Financial Resource Strain (CARDIA) Difficulty of [...] No Physical Activity: Unknown (07/14/2024) Received from [facility] Exercise Vital Sign Days of Exercise per Week: Patient unable to answer Minutes of Exercise per Session: Not on file Stress: Patient Unable To Answer (07/14/2024) Received from [facility] [place] of Occupational Health - Occupational Stress Questionnaire Feeling of Stress : Patient unable to answer Social Connections: Patient Unable To Answer (07/14/2024) Received from [facility] Social Connection and Isolation Panel [NHANES] Frequency of Communication with Friends and Family: Patient unable to answer Frequency of Social Gatherings with Friends and Family: Patient unable to answer Attends Jehovah'S Witness Services: Patient unable to answer Active Member [...] glucose, HYDROmorphone OR HYDROmorphone, sodium chloride 0.45% (1 NS) Vital Signs Temp: [98.2 ??F (36.8 [...] by mouth every 8 hours. alcohol swabs Pad Use as instructed. apixaban (ELIQUIS) 2.5 mg Tab Take 1 tablet (2.5 mg total) by mouth 2 times a day. aspirin 81 MG chewable tablet Chew 1 tablet (81 mg total) by mouth daily. atovaquone (MEPRON) 750 mg/5 mL suspension Take 10 mLs (1,500 mg total) by mouth daily for 30 doses. blood sugar diagnostic (GLUCOSE BLOOD) [facility] Use to test blood sugar up to 4 times a day. blood-glucose meter (TRUE METRIX GLUCOSE METER) Misc Use to test blood sugar up to 4 times a day. DEXCOM G7 CASE AIDE Misc Use reader as directed. DEXCOM [...] times a day. 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 No indications for HIP HOP DANCE INSTRUCTOR. Good UOP - Noted KT US WNL [...] preliminary until attending attestation. Lauren Santos, DNP, MOLECULAR BIOLOGY PROFESSOR, PARTS ROOM CLERK- Transplant Nephrology [phone] Preferred contact: secure chat [1] Allergies Allergen [...] Gonzalez MD, MEd, FASN * Marcellus Hebert, HIDE SORTER, BEAMING INSPECTOR - 10/27/2024 10:21 AM EDT HEALTH Care Management/Social Work Assessment Patient Information Patient Name: Blair Gilbert Hospital Day: 2 Inpatient/Observation: Inpatient Admit Date: 10/25/2024 Admission Diagnosis: Liver transplant recipient (CMS-HCC) [Z94.4] Attending provider: Semaj Mcnair III, MD PCP: Enedina Mcguire NP [place] Pharmacy: [facility] [address] [place] [address] [place] [address] [facility] [address] [facility] [place] [address] Issues related to obtaining medications: N/A Payor Information Medical Insurance Coverage: Payor: [facility] / Plan: [facility] GLOBAL / Product Type: *No Producttype* [...] History: 12 weeks of CD Treatement at [facility] Do you need Substance Abuse [...] resides with his spouse at their [facility] in [place]. 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 Patient's LNOK:Spouse, Abdiaziz Gilbert, Patient has no current or past history of suicidal/homicidal ideation. Patient has a history of mental health diagnoses, PTSD and Generalized Anxiety Disorder. Patient is connected with TransplantPsychiatrist and prescribed Prozac. Patient has a history of alcohol use and has completed 12 weeksof CD Treatment at [facility]. Spouse explained that he will [...] as appropriate. NUBIA Escalera, RONALDO Phone Number: [phone] * John Moreno MD - 10/26/2024 3:41 AM EDT SURGICAL ICU CONSULT NOTE 10/26/2024 3:41 AM Name: Blair Gilbert CSN: [id number] HPI: Blair Gilbert is a 39 y.o. [...] at 9:00 PM naloxone (NARCAN) 4 mg/actuation [place] Apply 1 spray in one nostril if [...] % 250 mL infusion 2.5 mcg/min (10/26/24 1560) insulin regular in 0.9 % sodium chloride norepinephrine 18 mcg/min (10/26/24 0611) vasopressin 0.04 Units/min (10/26/24 2034) PRN Meds: heparin (porcine) 5,000 unit/mL 10,000 [...] input(s): PHART , PCO2 , PO2ART , VYK3ICB , BEART in the last 72 hours. [...] at baseline or with provocation, shows no vbbgr-vz-mxes atrial level shunt. - Pulmonary arteries: Systolic [...] IV pantoprazole while intubated, NPO Last BM: TOUCH UP PAINTER HAND Bowel regimen: Senna/Miralax when able Nausea: Zofran PRN FLUID/ELECTROLYTES Recent Labs 10/25/24 2217 NA 137 K 2.1* CL 100 CO2 20* BUN 74* CREATININE 3.87* CALCIUM 9.3 PHOS 5.9* GLUCOSE 114* Intake/Output Summary (Last 24 hours) at 10/26/2024 0341 Last data filed at 10/26/2024 0326 Gross per 24 hour Intake 66617 ml Output 675 ml Net 95231 ml IV Fluids: EPINEPHrine (ADRENALIN) 10 mg in sodium chloride 0.9 % 250 mL infusion, Last Rate: 2.5 mcg/min (10/26/24 0339) insulin regular in 0.9 % sodium chloride norepinephrine, Last Rate: 18 mcg/min (10/26/24 101) vasopressin, Last Rate: 0.04 Units/min (10/26/24 4764) A/P: - Goal UOP >0.5 cc/kg/hr - [...] results for input(s): TEGANGLE , TEGKTIME , VVKZPLUD23 , TEGMAXAMPL , TEGRTIME , CBMZ in [...] in sodium chloride 0.9% 100 mL IVPB (Llqm0Tjo) 2 g Every 6 hours 10/26/2024 -- Admin Instructions: Use Cxwg8Llf Adapter - Mix Thoroughly Before Administration Notes to Pharmacy: On food and beverage order clerk estimated creatinine clearance is 35.9 mL/min (A) (based on SCr of 3.87 mg/dL (H)). Route: Intravenous AMPicillin 2 g in sodium chloride 0.9% 100 mL IVPB (Ycab9Kok) 2 g Once 10/26/2024 -- Admin Instructions: Use Sjwt3Mnj Adapter - Mix Thoroughly Before Administration Notes to Pharmacy: On food and beverage order clerk estimated creatinine clearance is 35.9 mL/min (A) (based on SCr of 3.87 mg/dL (H)). Route: Intravenous cefTRIAXone (ROCEPHIN) 2 g in sodium chloride 0.9 % 100 mL Jkfp8Cgl (Completed) 2 g Once 10/25/2024 10/26/2024 Admin Instructions: Use Drmo5Lgs Adapter - Mix Thoroughly Before Administration Route: [...] (See Comments) Became Manic Cosigned by Afia Ambroiso MD at 10/26/2024 7:55 AM EDT Associated [...] 47 (H) 10/26/2024 PO2ART 127 (H) 10/26/2024 MZK4OFP 21 (L) 10/26/2024 BEART -5.4 (L) 10/26/2024 INR5IIR 94.6 (L) 10/26/2024 K6NBOYWV 98 10/26/2024 P:F ratio = 363 CARDIOVASCULAR: [...] Acute Care Surgery, and Surgical Critical Care [facility] Academic Office [phone] For Transfers, call [phone] documented in this encounter Nursing Notes * [...] s/p OLT. Patient arrived to SICU bed SICU-28[facility] via hospital bed . Patient arrived intubated. [...] Escalera, RONALDO - 10/31/2024 11:34 AM EDT [facility] Case Management/Social Work Department Progress Note Patient Information Patient Name: Blair Gilbetr Hospital day: 6 Inpatient/Observation: Inpatient Level of Care: Transplant Admit date: 10/25/2024 Admission diagnosis: Liver transplant recipient (CMS-HCC) [Z94.4] PMH: has a past medical history of Alcoholic cirrhosis of liver (CMS-HCC), Esophageal varices (CMS-HCC), Hepatorenal syndrome (CMS-HCC), Hypertension, Other hyperlipidemia (07/26/2024), Renal cell carcinoma (CMS-HCC), Thrombocytopenia ([facility]-HCC), and Thyroid disease. PCP: Enedina Mcguire NP Home Pharmacy: [facility] [address] [place] [phone] [facility] [address] [facility] [address] [facility] [place] - [address] [facility] [address] [facility] [address] [facility] [id number] Medical Insurance Coverage: Payor: [employer] [...] submitted a few more HHC referrals. Update: MEREDITH made nurse educator aware that there were no accepting C agencies([facility], [facility], [facility]) and patient would need to outpatient for PT/OT and labs. Discharge Plan Anticipated discharge plan: Home with HHC vs Home with outpatient Anticipated discharge date: 11/01 CM/SW will continue to follow and remain available for discharge planning needs. NUBIA Escalera, BEAMING INSPECTOR Cell [phone] * Plan of Care - Paulette Flannery [...] Citlaly Nova - 10/29/2024 1:53 PM EDT [facility] Case Management/Social Work Department Progress [...] disease. PCP: Enedina Mcguire NP Home Pharmacy: [facility] [address] [place] [address] [facility] [address] [facility] [address] [facility] [place] - [address] [facility] [place] [id number] Medical Insurance Coverage: Payor: [employer] [...] submitted blanket [facility] [place], [facility], and [facility]. Awaiting responses. SW [...] available for discharge planning needs. NUBIA Rhodes, BEAMING INSPECTOR Inpatient Fell Cutter/Care Coordination [phone] * Plan of Care - Soco Yap [...] Escalera LSW - 10/28/2024 2:29 PM EDT [facility] Case Management/Social Work Department Progress [...] disease. PCP: Enedina Mcguire NP Home Pharmacy: [facility] [address] [facility] [address] [address] [facility] [address] [facility] [place] [address] [facility] [place] [address] [place] [phone] Medical Insurance Coverage: Payor: [employer] CARE / Plan: [employer] / [...] discharge planning needs. NUBIA Escalera, RONALDO Cell [phone] * Plan of Care - Elaine Carrillo [...] at all times. Outcome: Completed Problem: Non-violent, wqf-ucwj-clnszvzrgvx restraints Description: Less restrictive alternative interventions will [...] foods as appropriate. Outcome: Progressing Problem: Non-violent, khy-tkmr-imyqlrlmfal restraints Description: Less restrictive alternative interventions will [...] - 10/27/2024 9:00 AM EDT Problem: Non-violent, lfo-bvre-zrtohobivum restraints Description: Less restrictive alternative interventions will [...] - 10/26/2024 7:41 PM EDT Problem: Non-violent, gur-koni-wxruiuvdrls restraints Description: Less restrictive alternative interventions will [...] restraint flowsheet for further documentation. Problem: Non-violent, dez-zlar-jnwehshvdkp restraints Description: Less restrictive alternative interventions will [...] Description 12/05/2024 8:01 AM EDT Hospital Encounter [facility] ENDOSCOPY [address] [place] [address] Chris Orosco MD [address] [place] [address] 12/05/2024 8:01 AM EDT - 12/05/2024 8:31 AM EDT Surgery [facility] ENDOSCOPY [address] [place] [id number] Chris Orosco MD [address] [place] [phone] EGD Pending Results Name Type Priority Associated Diagnoses Date /Time Fungus culture Microbiology Routine 10/28/19 2:15 AM EDT Scheduled Orders Name Type Priority Associated Diagnoses Orde r Schedule Anaerobic culture Microbiology Routine Acute kidney injury superimposed on CKD (CMS-HCC) Release Upon Ordering for 1 Occurrences starting 10/27/2024 Fungus culture Microbiology Routine Acute kidney injury superimposed on CKD ([facility]-HCC) Release Upon Ordering for 1 Occurrences starting 10/27/2024 Routine Culture plus Stain Microbiology Routine Acute kidney injury superimposed on CKD (CMS-HCC) Release Upon Ordering for 1 Occurrences starting 10/27/2024 Surgical Pathology Exam Pathology and Cytology Routine Acute kidney injury superimposed on CKD ([facility]-HCC) Release Upon Ordering for 1 Occurrences [...] Routine 10/31/2024 11:59 AM EDT US DUPLEX QRI-NHIFMM-GJSLYOB COMPLETE Routine 10/31/2024 10:19 AM EDT US [...] Routine 10/28/2024 5:31 PM EDT US DUPLEX CEO-ZSANCE-PCIZQVV COMPLETE STAT 10/28/2024 4:23 PM EDT US [...] Routine 10/27/2024 10:00 AM EDT US DUPLEX ZPQ-IWJOYD-NAIHMPM COMPLETE STAT 10/27/2024 9:51 AM EDT US [...] EDT Acute kidney injury superimposed on CKD ([facility]) ROUTINE CULTURE PLUS STAIN Routine 10/27/2024 [...] scan (11/03/2024 8:24 AM EDT) us [facility] SCAN DOCS - NO RESULTS Final Res ult * Perfusion Record - scan (11/03/2024 8:24 AM EDT) us Scanning [facility] SCAN DOCS - NO RESULTS Final Res ult * (ABNORMAL) POC Glucose Monitoring Device (11/02/2024 5:44 PM EDT) POC Glucose Monitoring Device 180(H) 70 - 100 mg/dL 11/02/2024 5:45 PM EDT [facility] Blood 11/02/2024 5:44 PM EDT 11/02/2024 5:45 PM EDT us Semaj Mcnair III, MD POINT OF CARE TEST ORDERABLES Final Result [facility] [address] [facility]. [address] * (ABNORMAL) POC Glucose Monitoring Device (11/02/2024 3:34 PM EDT) POC Glucose Monitoring Device 208(H) 70 - 100 mg/dL 11/02/2024 3:35 PM EDT [facility] Blood 11/02/2024 3:34 PM EDT 11/02/2024 3:35 PM EDT us Semaj Mcnair III, MD POINT OF CARE TEST ORDERABLES Final Result [facility] [address] [facility]. [address] * (ABNORMAL) POC Glucose Monitoring Device (11/02/2024 1:18 PM EDT) POC Glucose Monitoring Device 225(H) 70 - 100 mg/dL 11/02/2024 1:19 PM EDT [facility] Blood 11/02/2024 1:18 PM EDT 11/02/2024 1:19 PM EDT us Semaj Mcnair III, MD POINT OF CARE TEST ORDERABLES Final Result Performing Organization Address City/[facility]/ZIP Co de Phone Number [facility] [address] * (ABNORMAL) POC Glucose Monitoring Device (11/02/2024 8:59 AM EDT) POC Glucose Monitoring Device 129(H) 70 - 100 mg/dL 11/02/2024 9:00 AM EDT [facility] Blood 11/02/2024 8:5 9 AM EDT 11/02/2024 9:00 AM EDT Semaj Mcnair III, MD POINT OF CARE TEST ORDERABLES Final Result Performing Organization Address [facility] Co de Phone Number [facility] [address] [facility]. [address] * Tacrolimus level (11/02/2024 5:53 AM EDT) Tacrolimus (LC-MS) 7.4 3.0 - 15.0 ng/mL 11/02/2024 2:23 PM EDT [facility] Comment:Performed via liquid chromatography tandem mass spectrometry. Detection limit: 1 ng/mL. Individual target concentrations may vary due to target organ and time after transplant. This test has been developed and its performance characteristics determined by [facility] which is certified under [...] ORDERABLES Denisse l Result Performing Organization Address [facility] Co de Phone Number [facility] [address] * (ABNORMAL) Renal Function Panel w/EGFR (11/02/2024 5:53 AM EDT) Sodium 140 133 - 146 mmol/L 11/02/2024 6:47 AM EDT [facility] Potassium 3.3(L) 3.5 - 5.3 mmol/L 11/02/2024 6:47 AM EDT [facility] Chloride 107 98 - 110 mmol/L 11/02/2024 6:47 AM EDT [facility] CO2 25 21 - 33 mmol/L 11/02/2024 6:47 AM EDT [facility] Anion Gap 8 3 - 16 mmol/L 11/02/2024 6:47 AM T [facility] BUN 31(H) 7 - 25 mg/dL 11/02/2024 6:47 AM [facility] Creatinine 1.08 0.60 - 1.30 mg/dL 11/02/2024 6:47 AM [facility] Glucose 150(H) 70 - 100 mg/dL 11/02/2024 6:47 AM T [facility] Calcium 7.8(L) 8.6 - 10.3 mg/dL 11/02/2024 6:47 AM EDT [facility] Phosphorus 2.0(L) 2.1 - 4.7 mg/dL 11/02/2024 6:47 AM [facility] Albumin 3.2(L) 3.5 - 5.7 g/dL 11/02/2024 6:47 AM [facility] Osmolality, Calculated 299 278 - 305 mOsm/kg 11/02/2024 6:[facility] EGFR 88 11/02/2024 6:47 AM [facility] Comment:As of 2021, the [...] M, Olivia DC, Emerita [place], Madelyn [place], Oyster Worker [place], et al. A Unifying Approach for GFR Estimation: Recommendations of the NKF-ASN Task Force on Reassessing the inclusion of Race in Diagnosing Kidney Disease. Am J Kidney Dis. 2020. Plasma 11/02/2024 5:53 AM EDT 11/02/2024 6:12 AM EDT Beata Bessn BUSINESS ANALYTICS MANAGER LAB BLOOD ORDERABLES Denisse l Result Performing Organization Address City/[facility]/ZIP Co de Phone Number [facility] [address] [facility]. [address] * (ABNORMAL) Magnesium (11/02/2024 5:53 AM EDT) Magnesium 1.3(L) 1.5 - 2.5 mg/dL 11/02/2024 6:47 AM EDT [facility] Plasma 11/02/2024 5:53 AM EDT 11/02/2024 6:12 AM EDT Beata [place] Horner [facility] BLOOD ORDERABLES Denisse l Result Performing Organization Address [facility] Co de Phone Number [facility] [address] [place] [address]. [address] * (ABNORMAL) Hepatic Function Panel (11/02/2024 5:53 AM EDT) Total Bilirubin 1.6(H) 0.0 - 1.5 mg/dL 11/02/2024 6:47 AM EDT [facility] Bilirubin, Direct 0.81(H) 0.00 - 0.40 mg/dL 11/02/2024 6:47 AM EDT [facility] AST 30 13 - 39 U/L 11/02/2024 6:47 AM EDT [facility] ALT 66(H) 7 - 52 U/L 11/02/2024 6:47 AM EDT [facility] Alkaline Phosphatase 126(H) 36 - 125 U/L 11/02/2024 6:47 AM EDT [facility] Total Protein 4.6(L) 6.4 - 8.9 g/dL 11/02/2024 6:47 AM EDT [facility] Albumin 3.2(L) 3.5 - 5.7 g/dL 11/02/2024 6:47 AM EDT [facility] Bilirubin, Indirect 0.79 0.00 - 1.10 mg/dL 11/02/2024 6:47 AM EDT [facility] Plasma 11/02/2024 5:53 AM EDT 11/02/2024 6:12 AM EDT Beata Horner BUSINESS ANALYTICS MANAGER LAB BLOOD ORDERABLES Denisse l Result [facility] [address] [place] [address], [facility] * (ABNORMAL) CBC (11/02/2024 5:53 AM EDT) WBC 5.8 3.8 - 10.8 10E3/uL 11/02/2024 6:21 AM EDT [facility] RBC 3.12(L) 4.20 - 5.80 10E6/uL 11/02/2024 6:21 AM EDT [facility] Hemoglobin 9.2(L) 13.2 - 17.1 g/dL 11/02/2024 6:21 AM EDT [facility] Hematocrit 27.5(L) 38.5 - 50.0 % 11/02/2024 6:21 AM EDT [facility] MCV 87.9 80.0 - 100.0 fL 11/02/2024 6:21 AM EDT [facility] MCH 29.5 27.0 - 33.0 pg 11/02/2024 6:21 AM EDT [facility] MCHC 33.5 32.0 - 36.0 g/dL 11/02/2024 6:21 AM EDT [facility] RDW 17.5(H) 11.0 - 15.0 % 11/02/2024 6:21 AM EDT [facility] Platelets 61(L) 140 - 400 10E3/uL 11/02/2024 6:21 AM EDT [facility] MPV 7.9 7.5 - 11.5 fL 11/02/2024 6:21 AM EDT [facility] Whole Blood 11/02/2024 5:53 AM EDT 11/02/2024 6:12 AM EDT Beata Horner [facility] BLOOD ORDERABLES Denisse l Result [facility] [address] * (ABNORMAL) POC Glucose Monitoring Device (11/01/2024 9:26 PM EDT) POC Glucose Monitoring Device 199(H) 70 - 100 mg/dL 11/01/2024 9:27 PM EDT [facility] Blood 11/01/2024 9:26 PM EDT 11/01/2024 9:27 PM EDT Semaj Mcnair III, MD POINT OF CARE TEST ORDERABLES Final Result Performing Organization Address City/[facility]/ZIP Co de Phone Number [facility] [address] [facility]. [address] * (ABNORMAL) POC Glucose Monitoring Device (11/01/2024 5:04 PM EDT) POC Glucose Monitoring Device 255(H) 70 - 100 mg/dL 11/01/2024 5:05 PM EDT [facility] Blood 11/01/2024 5:04 PM EDT 11/01/2024 5:05 PM EDT Semaj Mcnair III, MD POINT OF CARE TEST ORDERABLES Final Result [facility] [address] [facility]. [address] * (ABNORMAL) Renal Function Panel w/EGFR, STAT (11/01/2024 2:17 PM EDT) Sodium 139 133 - 146 mmol/L 11/01/2024 3:10 PM EDT [facility] Potassium 3.3(L) 3.5 - 5.3 mmol/L 11/01/2024 3:10 PM EDT [facility] Chloride 107 98 - 110 mmol/L 11/01/2024 3:10 PM EDT [facility] CO2 24 21 - 33 mmol/L 11/01/2024 3:10 PM EDT [facility] Anion Gap 8 3 - 16 mmol/L 11/01/2024 3:10 PM EDT [facility] BUN 35(H) 7 - 25 mg/dL 11/01/2024 3:10 PM EDT [facility] Creatinine 1.22 0.60 - 1.30 mg/dL 11/01/2024 3:10 PM EDT [facility] Glucose 203(H) 70 - 100 mg/dL 11/01/2024 3:10 PM EDT [facility] Calcium 8.3(L) 8.6 - 10.3 mg/dL 11/01/2024 3:10 PM EDT [facility] Phosphorus 2.2 2.1 - 4.7 mg/dL 11/01/2024 3:10 PM EDT [facility] Albumin 3.4(L) 3.5 - 5.7 g/dL 11/01/2024 3:10 PM EDT [facility] Osmolality, Calculated 302 278 - 305 mOsm/kg 11/01/2024 3:10 PM EDT [facility] EGFR 76 11/01/2024 3:10 PM EDT [facility] Comment:As of 2021, the [...] Marks MD LAB BLOOD ORDERABLES Final Result [facility] [address] [address], [facility] * X-ray Portable Abdomen AP [...] - 100 mg/dL 11/01/2024 12:23 PM EDT [facility] Blood 11/01/2024 12:2 2 PM EDT 11/01/2024 12:23 PM EDT Semaj Mcnair III, MD POINT OF CARE TEST ORDERABLES Final Result Performing Organization Address [facility]/ZIP Co de Phone Number [facility] [address] * (ABNORMAL) POC Glucose Monitoring Device (11/01/2024 8:50 AM EDT) POC Glucose Monitoring Device 175(H) 70 - 100 mg/dL 11/01/2024 8:51 AM EDT [facility] Blood 11/01/2024 8:50 AM EDT 11/01/2024 8:51 AM EDT Semaj Mcnair III, MD POINT OF CARE TEST ORDERABLES Final Result Performing Organization Address City/[facility]/ZIP Co de Phone Number [facility] [address] [facility]. [address] * Tacrolimus level (11/01/2024 6:01 AM EDT) Tacrolimus (LC-MS) 7.5 3.0 - 15.0 ng/mL 11/01/2024 12:14 PM EDT [facility] Comment:Performed via liquid chromatography tandem mass spectrometry. Detection limit: 1 ng/mL. Individual target concentrations may vary due to target organ and time after transplant. This test has been developed and its performance characteristics determined by [facility] which is certified under [...] PharmD LAB BLOOD ORDERABLES Denisse valle Result [facility] [address] [place], [place] [address] * (ABNORMAL) Renal Function Panel w/EGFR (11/01/2024 6:01 AM EDT) Sodium 139 133 - 146 mmol/L 11/01/2024 6:57 AM EDT [facility] Potassium 3.3(L) 3.5 - 5.3 mmol/L 11/01/2024 6:57 AM EDT [facility] Chloride 108 98 - 110 mmol/L 11/01/2024 6:57 AM EDT [facility] CO2 22 21 - 33 mmol/L 11/01/2024 6:57 AM EDT [facility] Anion Gap 9 3 - 16 mmol/L 11/01/2024 6:57 AM EDT [facility] BUN 37(H) 7 - 25 mg/dL 11/01/2024 6:57 AM EDT [facility] Creatinine 1.30 0.60 - 1.30 mg/dL 11/01/2024 6:57 AM EDT [facility] Glucose 163(H) 70 - 100 mg/dL 11/01/2024 6:57 AM EDT [facility] Calcium 8.2(L) 8.6 - 10.3 mg/dL 11/01/2024 6:57 AM EDT [facility] Phosphorus 2.9 2.1 - 4.7 mg/dL 11/01/2024 6:57 AM EDT [facility] Albumin 3.1(L) 3.5 - 5.7 g/dL 11/01/2024 6:57 AM EDT [facility] Osmolality, Calculated 300 278 - 305 mOsm/kg 11/01/2024 6:57 AM EDT [facility] EGFR 71 11/01/2024 6:57 AM EDT [facility] Comment:As of 2021, the [...] 6:01 AM EDT 11/01/2024 6:20 AM EDT [employer] [facility] BLOOD ORDERABLES Denisse l Result [facility] [address] * Magnesium (11/01/2024 6:01 AM EDT) Magnesium 1.5 1.5 - 2.5 mg/dL 11/01/2024 6:57 AM EDT [facility] Plasma 11/01/2024 6:01 AM EDT 11/01/2024 6:20 AM EDT [employer] [facility] BLOOD ORDERABLES Denisse l Result [facility] [address] * (ABNORMAL) Hepatic Function Panel (11/01/2024 6:01 AM EDT) Total Bilirubin 2.0(H) 0.0 - 1.5 mg/dL 11/01/2024 6:57 AM EDT [facility] Bilirubin, Direct 1.06(H) 0.00 - 0.40 mg/dL 11/01/2024 6:57 AM EDT [facility] AST 21 13 - 39 U/L 11/01/2024 6:57 AM EDT [facility] ALT 62(H) 7 - 52 U/L 11/01/2024 6:57 AM EDT [facility] Alkaline Phosphatase 114 36 - 125 U/L 11/01/2024 6:57 AM EDT [facility] Total Protein 4.6(L) 6.4 - 8.9 g/dL 11/01/2024 6:57 AM EDT [facility] Albumin 3.1(L) 3.5 - 5.7 g/dL 11/01/2024 6:57 AM EDT [facility] Bilirubin, Indirect 0.94 0.00 - 1.10 mg/dL 11/01/2024 6:57 AM EDT [facility] Plasma 11/01/2024 6:01 AM EDT 11/01/2024 6:20 AM EDT us Beata Horner BUSINESS ANALYTICS MANAGER LAB BLOOD ORDERABLES Denisse valle Result [facility] [address] [place] [address], [facility] * (ABNORMAL) CBC (11/01/2024 6:01 AM EDT) WBC 5.9 3.8 - 10.8 10E3/uL 11/01/2024 6:29 AM EDT [facility] RBC 3.19(L) 4.20 - 5.80 10E6/uL 11/01/2024 6:29 AM EDT [facility] Hemoglobin 9.5(L) 13.2 - 17.1 g/dL 11/01/2024 6:29 AM EDT [facility] Hematocrit 27.8(L) 38.5 - 50.0 % 11/01/2024 6:29 AM EDT [facility] MCV 87.1 80.0 - 100.0 fL 11/01/2024 6:29 AM EDT [facility] MCH 29.9 27.0 - 33.0 pg 11/01/2024 6:29 AM EDT [facility] MCHC 34.3 32.0 - 36.0 g/dL 11/01/2024 6:29 AM EDT [facility] RDW 17.4(H) 11.0 - 15.0 % 11/01/2024 6:29 AM EDT [facility] Platelets 56(L) 140 - 400 10E3/uL 11/01/2024 6:29 AM EDT [facility] MPV 8.3 7.5 - 11.5 fL 11/01/2024 6:29 AM EDT [facility] Whole Blood 11/01/2024 6:01 AM EDT 11/01/2024 6:19 AM EDT Beata Horner [facility] BLOOD ORDERABLES Denisse l Result [facility] [address] [facility] * (ABNORMAL) POC Glucose Monitoring Device (10/31/2024 9:15 PM EDT) POC Glucose Monitoring Device 171(H) 70 - 100 mg/dL 10/31/2024 9:15 PM EDT [facility] Blood 10/31/2024 9:15 PM EDT 10/31/2024 9:15 PM EDT Semaj Mcnair III, MD POINT OF CARE TEST ORDERABLES Final Result [facility] [address] * (ABNORMAL) POC Glucose Monitoring Device (10/31/2024 5:56 PM EDT) POC Glucose Monitoring Device 179(H) 70 - 100 mg/dL 10/31/2024 5:57 PM EDT [facility] Blood 10/31/2024 5:56 PM EDT 10/31/2024 5:57 PM EDT Semaj Mcnair III, MD POINT OF CARE TEST ORDERABLES Final Result [facility] [address] [address], [facility] * CT Abdomen and Pelvis WO [...] Adrenal gland: No focal nodule seen. Kidneys: [place] kidneys noted with nonobstructing calcifications on the right. Findings of postsurgical changes in the left [place] kidney. Mild right hydronephrosis without an obstructive [...] Adrenal gland: No focal nodule seen. Kidneys: [place] kidneys noted with nonobstructing calcifications on theright. Findings of postsurgical changes in the left [place] kidney. Mildright hydronephrosis without an obstructive course [...] QT: 400 ms QTc: 456 ms P Erie: 49 degrees R Erie: 3 degrees T Erie: 14 degrees Diagnosis Line: NORMAL SINUS RHYTHM ^ NORMAL ECG ^ ^ Confirmed by MD REID JAMES ([id number]) on 11/02/2024 6:56:52 AM Priti Geiger CNP ECG ORDERABLES Final Result MUSE * (ABNORMAL) Urinalysis w/Rfl to Microscopic (10/31/2024 1:18 PM EDT) Color, UA Straw Yellow,Straw 10/31/2024 1:46 PM EDT [facility] Clarity, UA Clear Clear 10/31/2024 1:46 PM EDT [facility] Specific [place], UA 1.013 1.005 - 1.035 10/31/2024 1:46 PM EDT [facility] pH, UA 6.5 5.0 - 8.0 10/31/2024 1:46 PM EDT [facility] Protein, UA Negative Negative mg/dL 10/31/2024 1:46 PM EDT [facility] Glucose, UA Negative Negative mg/dL 10/31/2024 1:46 PM EDT [facility] Ketones, UA Negative Negative mg/dL 10/31/2024 1:46 PM EDT [facility] Bilirubin, UA Negative Negative 10/31/2024 1:46 PM EDT [facility] Blood, UA Large(A) Negative 10/31/2024 1:46 PM EDT [facility] Nitrite, UA Negative Negative 10/31/2024 1:46 PM EDT [facility] Urobilinogen, UA <2.0 0.2 - 1.9 mg/dL 10/31/2024 1:46 PM EDT [facility] Leukocyte Esterase, UA Negative Negative 10/31/2024 1:46 PM EDT [facility] RBC, UA >100(H) 0 - 3 /HPF 10/31/2024 1:46 PM EDT [facility] WBC, UA 3 0 - 5 /HPF 10/31/2024 1:46 PM EDT [facility] Hyaline Casts, UA 3(H) 0 - 2 /LPF 10/31/2024 1:46 PM EDT [facility] Urine 10/31/2024 1:18 PM EDT 10/31/2024 1:32 PM EDT Priti Geiger CNP URINE ORDERABLES Final Result Performing Organization Address City/[facility]/ZIP Co de Phone Number [facility] [address] * (ABNORMAL) Post Kidney Transplant Urine Culture (10/31/2024 1:18 PM EDT) Culture Result Enterococcus faecium, Vancomycin Resistant(A) [facility] Comment: 1,000- <10,000 cfu/mL Identified [...] ORDERA BLES Final Result Performing Organization Address City/[facility]/ZIP Co de Phone Number [facility] [address] * (ABNORMAL) POC Glucose Monitoring Device (10/31/2024 11:59 AM EDT) POC Glucose Monitoring Device 130(H) 70 - 100 mg/dL 10/31/2024 12:21 PM EDT [facility] Blood 10/31/2024 11:5 9 AM EDT 10/31/2024 12:21 PM EDT us Semaj Mcnair III, MD POINT OF CARE TEST ORDERABLES Final Result [facility] [address] [address], [facility] * US Abdomen Limited (10/31/2024 [...] EXAM: US ABDOMEN LIMITED EXAM: US DUPLEX [id number] COMPLETE INDICATION: Post-op liver transplant COMPARISON: None [...] visualized secondary to poor acoustic windows. The [place] right kidney measures 11.6 cm in length. [...] EXAM: US ABDOMEN LIMITED EXAM: US DUPLEX [id number] COMPLETE INDICATION: Post-op liver transplant COMPARISON: None [...] well visualized secondary to poor acousticwindows. The [place] right kidney measures 11.6 cm in length. [...] 10/31/2024 10:35 AM EDT Beata Horner [facility] US ORDERABLES Final R esult * [...] 10/31/2024 10:29 AM EDT us Beata Horner BUSINESS ANALYTICS MANAGER IMG US ORDERABLES Final R esult * US Duplex [id number] Comp (10/31/2024 10:19 AM EDT) Anatomical Region [...] EXAM: US ABDOMEN LIMITED EXAM: US DUPLEX [id number] COMPLETE INDICATION: Post-op liver transplant COMPARISON: None [...] visualized secondary to poor acoustic windows. [place] right kidney measures 11.6 cm in length. [...] EXAM: US ABDOMEN LIMITED EXAM: US DUPLEX [id number] COMPLETE INDICATION: Post-op liver transplant COMPARISON: None [...] well visualized secondary to poor acousticwindows. [place] right kidney measures 11.6 cm in length. [...] at 10/31/2024 10:35 AM EDT Beata Horner [facility] US ORDERABLES Final R esult * ECG 12-lead (MUSE) (10/31/2024 8:57 AM EDT) 10/31/2024 8:57 AM EDT Narrative MUSE - 11/01/2024 9:21 AM EDT Ventricular Rate: 83 BPM Atrial Rate: 83 BPM P-R Interval: 168 ms QRS Duration: 102 ms QT: 392 ms QTc: 460 ms P Erie: 64 degrees R Erie: -18 degrees T Erie: 7 degrees Diagnosis Line: NORMAL SINUS RHYTHM ^ NORMAL ECG ^ ^ Confirmed by MD JOE, OTIS ([id number]) on 11/01/2024 9:21:13 AM Priti Geiger BUSINESS ANALYTICS MANAGER ECG ORDERABLES Final Result MUSE * (ABNORMAL) POC Glucose Monitoring Device (10/31/2024 8:44 AM EDT) Pathologist [facility] [place] POC Glucose Monitoring Device 145(H) 70 - 100 mg/dL 10/31/2024 8:45 AM EDT [facility] Blood 10/31/2024 8:44 AM EDT 10/31/2024 8:44 AM EDT Semaj Mcnair III, MD POINT OF CARE TEST ORDERABLES Final Result Performing Organization Address City/[facility]/ZIP Co de Phone Number [facility] [address] * Tacrolimus level (10/31/2024 6:40 AM EDT) Pathologist [facility] [place] Tacrolimus (LC-MS) 8.4 3.0 - 15.0 ng/mL 10/31/2024 10:05 AM EDT [facility] Comment:Performed via liquid chromatography tandem mass spectrometry. Detection limit: 1 ng/mL. Individual target concentrations may vary due to target organ and time after transplant. This test has been developed and its performance characteristics determined by [facility] which is certified under [...] 6:40 AM EDT 10/31/2024 7:43 AM EDT us Hillary Fernandes PharmD LAB BLOOD ORDERABLES Denisse l Result [facility] [address] [place] [address], [facility] * (ABNORMAL) Renal Function Panel w/EGFR (10/31/2024 6:40 AM EDT) Sodium 141 133 - 146 mmol/L 10/31/2024 8:09 AM EDT [facility] Potassium 3.5 3.5 - 5.3 mmol/L 10/31/2024 8:09 AM EDT [facility] Chloride 111(H) 98 - 110 mmol/L 10/31/2024 8:09 AM EDT [facility] CO2 20(L) 21 - 33 mmol/L 10/31/2024 8:09 AM EDT [facility] Anion Gap 10 3 - 16 mmol/L 10/31/2024 8:09 AM EDT [facility] BUN 54(H) 7 - 25 mg/dL 10/31/2024 8:09 AM EDT [facility] Creatinine 1.75(H) 0.60 - 1.30 mg/dL 10/31/2024 8:09 AM EDT [facility] Glucose 136(H) 70 - 100 mg/dL 10/31/2024 8:09 AM EDT [facility] Calcium 8.7 8.6 - 10.3 mg/dL 10/31/2024 8:09 AM EDT [facility] Phosphorus 4.1 2.1 - 4.7 mg/dL 10/31/2024 8:09 AM EDT [facility] Albumin 3.2(L) 3.5 - 5.7 g/dL 10/31/2024 8:09 AM EDT [facility] Osmolality, Calculated 309(H) 278 - 305 mOsm/kg 10/31/2024 8:09 AM EDT [facility] EGFR 50 10/31/2024 8:09 AM EDT [facility] Comment:As of 2021, the [...] 10/31/2024 7:35 AM EDT [facility]ata Dada [facility] BLOOD ORDERABLES Denisse l Result Performing Organization Address [facility] Co de Phone Number [facility] [address] [place] [address]. [address] * Magnesium (10/31/2024 6:40 AM EDT) Magnesium 1.8 1.5 - 2.5 mg/dL 10/31/2024 8:09 AM EDT [facility] Plasma 10/31/2024 6:40 AM EDT 10/31/2024 7:35 AM EDT [facility] BLOOD ORDERABLES Denisse l Result Performing Organization Address [facility] [facility] Co de Phone Number [facility] [address] [place] [address] * (ABNORMAL) Hepatic Function Panel (10/31/2024 6:40 AM EDT) Total Bilirubin 2.7(H) 0.0 - 1.5 mg/dL 10/31/2024 8:09 AM EDT [facility] Bilirubin, Direct 1.57(H) 0.00 - 0.40 mg/dL 10/31/2024 8:09 AM EDT [facility] AST 26 13 - 39 U/L 10/31/2024 8:09 AM EDT [facility] ALT 68(H) 7 - 52 U/L 10/31/2024 8:09 AM EDT [facility] Alkaline Phosphatase 112 36 - 125 U/L 10/31/2024 8:09 AM EDT [facility] Total Protein 4.7(L) 6.4 - 8.9 g/dL 10/31/2024 8:09 AM EDT [facility] Albumin 3.2(L) 3.5 - 5.7 g/dL 10/31/2024 8:09 AM EDT [facility] Bilirubin, Indirect 1.13(H) 0.00 - 1.10 mg/dL 10/31/2024 8:09 AM EDT [facility] Plasma 10/31/2024 6:40 AM EDT 10/31/2024 7:35 AM EDT us Beata Horner [facility] BLOOD ORDERABLES Denisse l Result [facility] [address] * (ABNORMAL) CBC (10/31/2024 6:40 AM EDT) WBC 6.0 3.8 - 10.8 10E3/uL 10/31/2024 8:05 AM EDT [facility] RBC 3.14(L) 4.20 - 5.80 10E6/uL 10/31/2024 8:05 AM EDT [facility] Hemoglobin 9.6(L) 13.2 - 17.1 g/dL 10/31/2024 8:05 AM EDT [facility] Hematocrit 27.5(L) 38.5 - 50.0 % 10/31/2024 8:05 AM EDT [facility] MCV 87.6 80.0 - 100.0 fL 10/31/2024 8:05 AM EDT [facility] MCH 30.7 27.0 - 33.0 pg 10/31/2024 8:05 AM EDT [facility] MCHC 35.0 32.0 - 36.0 g/dL 10/31/2024 8:05 AM EDT [facility] RDW 17.9(H) 11.0 - 15.0 % 10/31/2024 8:05 AM EDT [facility] Platelets 44(L) 140 - 400 10E3/uL 10/31/2024 8:05 AM EDT [facility] Comment: CNV Specimen checked for clots. None detected. MPV 8.9 7.5 - 11.5 fL 10/31/2024 8:05 AM EDT [facility] Whole Blood 10/31/2024 6:40 AM EDT 10/31/2024 7:34 AM EDT Beata Horner [facility] BLOOD ORDERABLES Denisse l Result [facility] [address] * (ABNORMAL) POC Glucose Monitoring Device (10/30/2024 9:01 PM EDT) POC Glucose Monitoring Device 144(H) 70 - 100 mg/dL 10/30/2024 9:02 PM EDT [facility] Blood 10/30/2024 9:01 PM EDT 10/30/2024 9:01 PM EDT us Semaj Mcnair III, MD POINT OF CARE TEST ORDERABLES Final Result Performing Organization Address City/[facility]/ZIP Co de Phone Number [facility] [address] [facility]. [address] * (ABNORMAL) POC Glucose Monitoring Device (10/30/2024 5:37 PM EDT) POC Glucose Monitoring Device 124(H) 70 - 100 mg/dL 10/30/2024 5:47 PM EDT [facility] Blood 10/30/2024 5:37 PM EDT 10/30/2024 5:47 PM EDT Semaj Mcnair III, MD POINT OF CARE TEST ORDERABLES Final Result [facility] [address] [facility]. [address] * (ABNORMAL) POC Glucose Monitoring Device (10/30/2024 7:26 AM EDT) POC Glucose Monitoring Device 150(H) 70 - 100 mg/dL 10/30/2024 7:27 AM EDT [facility] Blood 10/30/2024 7:26 AM EDT 10/30/2024 7:27 AM EDT Semaj Mcnair III, MD POINT OF CARE TEST ORDERABLES Final Result Performing Organization Address [facility]UST de Phone Number [facility] [address] [facility]. [address] * Tacrolimus level (10/30/2024 7:13 AM EDT) Pathologist [facility] [place] Tacrolimus (LC-MS) 9.5 3.0 - 15.0 ng/mL 10/30/2024 2:53 PM EDT [facility] Comment:Performed via liquid chromatography tandem mass spectrometry. Detection limit: 1 ng/mL. Individual target concentrations may vary due to target organ and time after transplant. This test has been developed and its performance characteristics determined by [facility] which is certified under [...] EDT 10/30/2024 7:26 AM EDT Priti Geiger [facility] BLOOD ORDERABLES Final Re sult Performing Organization Address [facility] Co de Phone Number [facility] [address] [facility]. [address] * ECG 12-lead (MUSE) (10/30/2024 6:51 AM EDT) 10/30/2024 6:51 AM EDT Narrative MUSE - 11/01/2024 9:21 AM EDT Ventricular Rate: 92 BPM Atrial Rate: 92 BPM P-R Interval: 174 ms QRS Duration: 96 ms QT: 376 ms QTc: 464 ms P Erie: 54 degrees R Erie: -24 degrees T Erie: 11 degrees Diagnosis Line: NORMAL SINUS RHYTHM ^ NORMAL ECG ^ ^ Confirmed by MD JOE, OTIS ([id number]) on 11/01/2024 9:21:09 AM Priti Geiger BUSINESS ANALYTICS MANAGER ECG ORDERABLES Final Result MUSE * (ABNORMAL) Renal Function Panel w/EGFR (10/30/2024 5:41 AM EDT) Sodium 140 133 - 146 mmol/L 10/30/2024 6:18 AM EDT [facility] Potassium 3.8 3.5 - 5.3 mmol/L 10/30/2024 6:18 AM EDT [facility] Chloride 111(H) 98 - 110 mmol/L 10/30/2024 6:18 AM EDT [facility] CO2 17(L) 21 - 33 mmol/L 10/30/2024 6:18 AM EDT [facility] Anion Gap 12 3 - 16 mmol/L 10/30/2024 6:18 AM EDT [facility] BUN 62(H) 7 - 25 mg/dL 10/30/2024 6:18 AM EDT [facility] Creatinine 1.96(H) 0.60 - 1.30 mg/dL 10/30/2024 6:18 AM EDT [facility] Glucose 116(H) 70 - 100 mg/dL 10/30/2024 6:18 AM EDT [facility] Calcium 9.0 8.6 - 10.3 mg/dL 10/30/2024 6:18 AM EDT [facility] Phosphorus 4.6 2.1 - 4.7 mg/dL 10/30/2024 6:18 AM EDT [facility] Albumin 3.2(L) 3.5 - 5.7 g/dL 10/30/2024 6:18 AM EDT [facility] Osmolality, Calculated 309(H) 278 - 305 mOsm/kg 10/30/2024 6:18 AM EDT [facility] EGFR 43 10/30/2024 6:18 AM EDT [facility] Comment:As of 2021, the [...] 5:41 AM EDT 10/30/2024 5:47 AM EDT [facility] BLOOD ORDERABLES Denisse l Result Performing Organization Address City/[facility]/ZIP Co de Phone Number [facility] [address] [facility]. [address] * Magnesium (10/30/2024 5:41 AM EDT) Pathologist [facility] [place] Magnesium 2.2 1.5 - 2.5 mg/dL 10/30/2024 6:18 AM EDT [facility] Plasma 10/30/2024 5:41 AM EDT 10/30/2024 5:47 AM EDT [facility] BLOOD ORDERABLES Denisse l Result Performing Organization Address City/[facility]/ZIP Co de Phone Number [facility] [address] * (ABNORMAL) Hepatic Function Panel (10/30/2024 5:41 AM EDT) Total Bilirubin 3.6(H) 0.0 - 1.5 mg/dL 10/30/2024 6:18 AM EDT [facility] Bilirubin, Direct 1.95(H) 0.00 - 0.40 mg/dL 10/30/2024 6:18 AM EDT [facility] AST 33 13 - 39 U/L 10/30/2024 6:18 AM EDT [facility] ALT 71(H) 7 - 52 U/L 10/30/2024 6:18 AM EDT [facility] Alkaline Phosphatase 80 36 - 125 U/L 10/30/2024 6:18 AM EDT [facility] Total Protein 4.8(L) 6.4 - 8.9 g/dL 10/30/2024 6:18 AM EDT [facility] Albumin 3.2(L) 3.5 - 5.7 g/dL 10/30/2024 6:18 AM EDT [facility] Bilirubin, Indirect 1.65(H) 0.00 - 1.10 mg/dL 10/30/2024 6:18 AM EDT [facility] Plasma 10/30/2024 5:41 AM EDT 10/30/2024 5:47 AM EDT Beata Horner [employer]NALYT[employer] MANAGER LAB BLOOD ORDERABLES Denisse valle Result [facility] [address] * (ABNORMAL) CBC (10/30/2024 5:41 AM EDT) Pathologist [facility] [place] WBC 8.1 3.8 - 10.8 10E3/uL 10/30/2024 8:06 AM EDT [facility] RBC 3.29(L) 4.20 - 5.80 10E6/uL 10/30/2024 8:06 AM EDT [facility] Hemoglobin 10.1(L) 13.2 - 17.1 g/dL 10/30/2024 8:06 AM EDT [facility] Hematocrit 28.8(L) 38.5 - 50.0 % 10/30/2024 8:06 AM EDT [facility] MCV 87.6 80.0 - 100.0 fL 10/30/2024 8:06 AM EDT [facility] MCH 30.6 27.0 - 33.0 pg 10/30/2024 8:06 AM EDT [facility] MCHC 34.9 32.0 - 36.0 g/dL 10/30/2024 8:06 AM EDT [facility] RDW 18.1(H) 11.0 - 15.0 % 10/30/2024 8:06 AM EDT [facility] Platelets 44(L) 140 - 400 10E3/uL 10/30/2024 8:06 AM EDT [facility] Comment: CNV Specimen checked for clots. None detected. MPV 8.3 7.5 - 11.5 fL 10/30/2024 8:06 AM EDT [facility] Whole Blood 10/30/2024 5:41 AM EDT 10/30/2024 5:50 AM EDT us Beata Horner [facility] BLOOD ORDERABLES Denisse l Result [facility] [address] * (ABNORMAL) POC Glucose Monitoring Device (10/29/2024 10:18 PM EDT) POC Glucose Monitoring Device 140(H) 70 - 100 mg/dL 10/29/2024 10:18 PM EDT [facility] Blood 10/29/2024 10:1 8 PM EDT 10/29/2024 10:18 PM EDT Semaj Mcnair III, MD POINT OF CARE TEST ORDERABLES Final Result [facility] [address] * (ABNORMAL) POC Glucose Monitoring Device (10/29/2024 6:42 PM EDT) POC Glucose Monitoring Device 152(H) 70 - 100 mg/dL 10/29/2024 6:43 PM EDT [facility] Blood 10/29/2024 6:42 PM EDT 10/29/2024 6:43 PM EDT Semaj Mcnair III, MD POINT OF CARE TEST ORDERABLES Final Result Performing Organization Address [facility] Co de Phone Number [facility] [address] * (ABNORMAL) POC Glucose Monitoring Device (10/29/2024 11:35 AM EDT) POC Glucose Monitoring Device 130(H) 70 - 100 mg/dL 10/29/2024 11:36 AM EDT [facility] Blood 10/29/2024 11:3 5 AM EDT 10/29/2024 11:36 AM EDT Semaj Mcnair III, MD POINT OF CARE TEST ORDERABLES Final Result Performing Organization Address [facility]/[place] de Phone Number [facility] [address] * ECG 12 lead (MUSE) (10/29/2024 9:34 AM EDT) 10/29/2024 9:34 AM EDT Narrative MUSE - 10/29/2024 10:34 PM EDT Ventricular Rate: 97 BPM Atrial Rate: 97 BPM P-R Interval: 186 ms QRS Duration: 104 ms QT: 382 ms QTc: 485 ms P Erie: 54 degrees R Erie: -21 degrees T Erie: 1 degrees Diagnosis Line: NORMAL SINUS RHYTHM ^ NORMAL ECG ^ Confirmed by JORGE MACIAS ([id number]) on 10/29/2024 10:34:50 PM Afshan Bear MD ECG ORDERABLES Final Result Performing Organization Address [facility] Co de Phone Number MUSE * Tacrolimus level (10/29/2024 8:08 AM EDT) Tacrolimus (LC-MS) 10.4 3.0 - 15.0 ng/mL 10/29/2024 2:07 PM EDT [facility] Comment:Performed via liquid chromatography tandem mass spectrometry. Detection limit: 1 ng/mL. Individual target concentrations may vary due to target organ and time after transplant. This test has been developed and its performance characteristics determined by [facility] which is certified under the Clinical Laboratory [...] EDT 10/29/2024 8:21 AM EDT Priti Geiger [facility] BLOOD ORDERABLES Final Re sult Performing Organization Address [facility] Co de Phone Number [facility] [address] * Prepare RBC, leukoreduced, 1 Units (10/29/2024 6:16 AM EDT) Product Code E8779H73 [facility] Unit Number [id number] [facility] Dispense Status Presumed Transfused_PT [facility]LL Blood Expiration Date [id number] HCLL Coding System [id number] [facility] Blood Bank Product Shay Plata MD BLOOD BANK PRODUCT O RDERABLES Final Result Performing Organization Address City/[facility] Co de Phone Number HC[facility] * Prepare RBC, leukoreduced, 1 Units (10/29/2024 6:15 AM EDT) Product Code U9473P48 [facility] Unit Number [id number] [facility] Dispense Status Presumed Transfused_PT [facility]LL Blood Expiration Date [id number] HCLL Coding System [id number] [facility] Blood Bank Product Carlos Marks MD BLOOD BANK PRODUCT ORDERABL ES Final Result HC[facility] * Prepare RBC, leukoreduced, 1 Units (10/29/2024 6:15 AM EDT) Product Code [id number] [facility] Unit Number [id number] [facility] Dispense Status Presumed Transfused_PT [facility]LL Blood Expiration Date [id number] HCLL Coding System [id number] [facility] Blood Bank Product John Moreno MD BLOOD BANK PRODUCT ORDERABLE S Final Result HC[facility] * (ABNORMAL) Renal Function Panel w/EGFR (10/29/2024 5:07 AM EDT) Sodium 144 133 - 146 mmol/L 10/29/2024 5:49 AM EDT [facility] Potassium 3.8 3.5 - 5.3 mmol/L 10/29/2024 5:49 AM EDT [facility] Chloride 113(H) 98 - 110 mmol/L 10/29/2024 5:49 AM EDT [facility] CO2 17(L) 21 - 33 mmol/L 10/29/2024 5:49 AM EDT [facility] Anion Gap 14 3 - 16 mmol/L 10/29/2024 5:49 AM EDT [facility] BUN 57(H) 7 - 25 mg/dL 10/29/2024 5:49 AM EDT [facility] Creatinine 1.93(H) 0.60 - 1.30 mg/dL 10/29/2024 5:49 AM EDT [facility] Glucose 110(H) 70 - 100 mg/dL 10/29/2024 5:49 AM EDT [facility] Calcium 9.3 8.6 - 10.3 mg/dL 10/29/2024 5:49 AM EDT [facility] Phosphorus 4.8(H) 2.1 - 4.7 mg/dL 10/29/2024 5:49 AM EDT [facility] Albumin 3.5 3.5 - 5.7 g/dL 10/29/2024 5:49 AM EDT [facility] Osmolality, Calculated 314(H) 278 - 305 mOsm/kg 10/29/2024 5:49 AM EDT [facility] EGFR 44 10/29/2024 5:49 AM EDT [facility] Comment:As of 2021, the [...] 5:07 AM EDT 10/29/2024 5:13 AM EDT [facility] BLOOD ORDERABLES Denisse l Result Performing Organization Address City/[facility]/ZIP Co de Phone Number [facility] [address] * Magnesium (10/29/2024 5:07 AM EDT) Magnesium 2.1 1.5 - 2.5 mg/dL 10/29/2024 5:49 AM EDT [facility] Plasma 10/29/2024 5:07 AM EDT 10/29/2024 5:13 AM EDT [facility] BLOOD ORDERABLES Denisse l Result Performing Organization Address City/[facility]/ZIP Co de Phone Number [facility] [address] * (ABNORMAL) Hepatic Function Panel (10/29/2024 5:07 AM EDT) Total Bilirubin 4.2(H) 0.0 - 1.5 mg/dL 10/29/2024 5:49 AM EDT [facility] Bilirubin, Direct 2.85(H) 0.00 - 0.40 mg/dL 10/29/2024 5:49 AM EDT [facility] AST 31 13 - 39 U/L 10/29/2024 5:49 AM EDT [facility] ALT 88(H) 7 - 52 U/L 10/29/2024 5:49 AM EDT [facility] Alkaline Phosphatase 51 36 - 125 U/L 10/29/2024 5:49 AM EDT [facility] Total Protein 5.2(L) 6.4 - 8.9 g/dL 10/29/2024 5:49 AM EDT [facility] Albumin 3.5 3.5 - 5.7 g/dL 10/29/2024 5:49 AM EDT [facility] Bilirubin, Indirect 1.35(H) 0.00 - 1.10 mg/dL 10/29/2024 5:49 AM EDT [facility] Plasma 10/29/2024 5:07 AM EDT 10/29/2024 5:13 AM EDT Beata Horner BUSINESS ANALYTICS MANAGER LAB BLOOD ORDERABLES Denisse valle Result [facility] [address] * (ABNORMAL) CBC (10/29/2024 5:07 AM EDT) WBC 7.8 3.8 - 10.8 10E3/uL 10/29/2024 5:38 AM EDT [facility] RBC 3.05(L) 4.20 - 5.80 10E6/uL 10/29/2024 5:38 AM EDT [facility] Hemoglobin 9.0(L) 13.2 - 17.1 g/dL 10/29/2024 5:38 AM EDT [facility] Hematocrit 26.7(L) 38.5 - 50.0 % 10/29/2024 5:38 AM EDT [facility] MCV 87.4 80.0 - 100.0 fL 10/29/2024 5:38 AM EDT [facility] MCH 29.7 27.0 - 33.0 pg 10/29/2024 5:38 AM EDT [facility] MCHC 33.9 32.0 - 36.0 g/dL 10/29/2024 5:38 AM EDT [facility] RDW 18.3(H) 11.0 - 15.0 % 10/29/2024 5:38 AM EDT [facility] Platelets 41(L) 140 - 400 10E3/uL 10/29/2024 5:38 AM EDT [facility] Comment: CNV Specimen checked for clots. None detected. MPV 7.5 7.5 - 11.5 fL 10/29/2024 5:38 AM EDT [facility] Whole Blood 10/29/2024 5:07 AM EDT 10/29/2024 5:13 AM EDT Beata Horner [facility] BLOOD ORDERABLES Denisse valle Result [facility] [address] * (ABNORMAL) TEG-Bypass/ECMO/Liver HN (Factor function, Platelet/Fibrin Clot Strength w/Clot Breakdown, Heparinase In All Channels) (10/29/2024 5:07 AM EDT) Citrated Kaolin Reaction Time (TEGECMOLIVER) 8.9 4.6 - 9.1 minutes 10/29/2024 7:04 AM EDT [facility] Citrated Kaolin W/Heparinase Reaction Time (TEGECMOLIVER) 7.4 4.3 - 8.3 minutes 10/29/2024 7:04 AM EDT [facility] Citrated Kaolin Maximum Amplitude (TEGECMOLIVER) 52.9 52.0 - 69.0 mm 10/29/2024 7:04 AM EDT [facility] Citrated Functional Fibrinogen W/Heparinase Maximum Amplitude(TEGEC MOLIVER) 20.7 15.0 - 34.0 mm 10/29/2024 7:04 AM EDT [facility] Citrated Rapid Teg W/Heparinase Maximum Amplitude (TEGECMOLIVER) 49.7(L) 53.0 - 69.0 mm 10/29/2024 7:04 AM EDT [facility] Citrated Kaolin w/Heparinase Percent Lysis (TEGECMOLIVER) 0.0 0.0 - 3.2 % 10/29/2024 7:04 AM EDT [facility] Whole Blood (Citrate) 10/29/2024 5:07 AM EDT 10/29/2024 5:10 AM EDT us Kemar Sahni MD LAB BLOOD ORDERABLES Final Result [facility] [address] [place] [address], [facility] * (ABNORMAL) TEG-Bypass/ECMO/Liver HN (Factor function, Platelet/Fibrin Clot Strength w/Clot Breakdown, Heparinase In All Channels) (10/28/2024 11:55 PM EDT) [facility] Citrated Kaolin Reaction Time (TEGECMOLIVER) 8.6 4.6 - 9.1 minutes 10/29/2024 2:01 AM EDT [facility] Citrated Kaolin W/Heparinase Reaction Time (TEGECMOLIVER) 8.7(H) 4.3 - 8.3 minutes 10/29/2024 2:01 AM EDT [facility] Citrated Kaolin Maximum Amplitude (TEGECMOLIVER) 47.9(L) 52.0 - 69.0 mm 10/29/2024 2:01 AM EDT [facility] Citrated Functional Fibrinogen W/Heparinase Maximum Amplitude(TEGEC MOLIVER) 22.0 15.0 - 34.0 mm 10/29/2024 2:01 AM EDT [facility] Citrated Rapid Teg W/Heparinase Maximum Amplitude (TEGECMOLIVER) 45.9(L) 53.0 - 69.0 mm 10/29/2024 2:01 AM EDT [facility] Citrated Kaolin w/Heparinase Percent Lysis (TEGECMOLIVER) 0.0 0.0 - 3.2 % 10/29/2024 2:01 AM EDT [facility] Whole Blood (Citrate) 10/28/2024 11:55 PM EDT 10/28/2024 11:58 PM EDT Kemar Sahni MD LAB BLOOD ORDERABLES Final Result [facility] [address] [place] [address], [facility] * (ABNORMAL) CBC, STAT (10/28/2024 8:04 PM EDT) WBC 3.9 3.8 - 10.8 10E3/uL 10/28/2024 8:36 PM EDT [facility] RBC 2.66(L) 4.20 - 5.80 10E6/uL 10/28/2024 8:36 PM EDT [facility] Hemoglobin 8.0(L) 13.2 - 17.1 g/dL 10/28/2024 8:36 PM EDT [facility] Hematocrit 23.0(L) 38.5 - 50.0 % 10/28/2024 8:36 PM EDT [facility] MCV 86.4 80.0 - 100.0 fL 10/28/2024 8:36 PM EDT [facility] MCH 29.9 27.0 - 33.0 pg 10/28/2024 8:36 PM EDT [facility] MCHC 34.6 32.0 - 36.0 g/dL 10/28/2024 8:36 PM EDT [facility] RDW 18.6(H) 11.0 - 15.0 % 10/28/2024 8:36 PM EDT [facility] Platelets 29(L) 140 - 400 10E3/uL 10/28/2024 8:36 PM EDT [facility] Comment: CNV Specimen checked for clots. None detected. MPV 7.8 7.5 - 11.5 fL 10/28/2024 8:36 PM EDT [facility] Whole Blood 10/28/2024 8:04 PM EDT 10/28/2024 8:14 PM EDT Carlos Marks MD LAB BLOOD ORDERABLES Final Result [facility] [address] * (ABNORMAL) POC Glucose Monitoring Device (10/28/2024 8:03 PM EDT) [facility] POC Glucose Monitoring Device 122(H) 70 - 100 mg/dL 10/28/2024 8:04 PM EDT [facility] Blood 10/28/2024 8:03 PM EDT 10/28/2024 8:04 PM EDT Semaj Mcnair III, MD POINT OF CARE TEST ORDERABLES Final Result Performing Organization Address [facility] Co de Phone Number [facility] [address] [facility]. [address] * (ABNORMAL) TEG-Bypass/ECMO/Liver HN (Factor function, Platelet/Fibrin Clot Strength w/Clot Breakdown, Heparinase In All Channels) (10/28/2024 6:39 PM EDT) [facility] Signature Citrated Kaolin Reaction Time (TEGECMOLIVER) 9.0 4.6 - 9.1 minutes 10/28/2024 7:50 PM EDT [facility] Citrated Kaolin W/Heparinase Reaction Time (TEGECMOLIVER) 8.3 4.3 - 8.3 minutes 10/28/2024 7:50 PM EDT [facility] Citrated Kaolin Maximum Amplitude (TEGECMOLIVER) 47.6(L) 52.0 - 69.0 mm 10/28/2024 7:50 PM EDT [facility] Citrated Functional Fibrinogen W/Heparinase Maximum Amplitude(TEGEC MOLIVER) 20.4 15.0 - 34.0 mm 10/28/2024 7:50 PM EDT [facility] Citrated Rapid Teg W/Heparinase Maximum Amplitude (TEGECMOLIVER) 44.0(L) 53.0 - 69.0 mm 10/28/2024 7:50 PM EDT [facility] Citrated Kaolin w/Heparinase Percent Lysis (TEGECMOLIVER) 0.0 0.0 - 3.2 % 10/28/2024 7:50 PM EDT [facility] Whole Blood (Citrate) 10/28/2024 6:39 PM EDT 10/28/2024 6:42 PM EDT Kemar Sahni MD LAB BLOOD ORDERABLES Final Result Performing Organization Address [facility] Co de Phone Number [facility] [address] [facility]. [address] * (ABNORMAL) POC Glucose Monitoring Device (10/28/2024 5:31 PM EDT) POC Glucose Monitoring Device 130(H) 70 - 100 mg/dL 10/28/2024 5:31 PM EDT [facility] Blood 10/28/2024 5:31 PM EDT 10/28/2024 5:31 PM EDT us Semaj Mcnair III, MD POINT OF CARE TEST ORDERABLES Final Result Performing Organization Address [facility] Co de Phone Number [facility] [address] [facility]. [address] * Transfuse RBC Transfusion Rate: Per dept routine (10/28/2024 5:23 PM EDT) us Shay Plata MD NURSING TREATMENT OR DERABLES - BLOOD ADMIN Final Result Performing Organization Address [facility] Co de Phone Number EXTERNAL * Transfuse RBC Transfusion Rate: Per dept routine, 1 Units (10/28/2024 5:23 PM EDT) us Shay Plata MD NURSING TREATMENT OR DERABLES - BLOOD ADMIN Final Result Performing Organization Address [facility] Co de Phone Number EXTERNAL * US [...] EXAM: US ABDOMEN LIMITED EXAM: US DUPLEX [id number] COMPLETE INDICATION: Post-op liver transplant DATE: 10/28/2024 [...] retrohepatic inferior vena cava is patent. [place] right kidney is partially visualized. A prominent [...] EXAM: US ABDOMEN LIMITED EXAM: US DUPLEX [id number] COMPLETE INDICATION: Post-op liver transplant DATE: 10/28/2024 [...] retrohepatic inferior vena cava is patent. [place] right kidney is partially visualized. A prominent [...] ORDERABLES Fi nal Result * US Duplex [id number] Comp (10/28/2024 4:23 PM EDT) Anatomical Region [...] EXAM: US ABDOMEN LIMITED EXAM: US DUPLEX [id number] COMPLETE INDICATION: Post-op liver transplant DATE: 10/28/2024 [...] retrohepatic inferior vena cava is patent. [place] right kidney is partially visualized. A prominent [...] EXAM: US ABDOMEN LIMITED EXAM: US DUPLEX [id number] COMPLETE INDICATION: Post-op liver transplant DATE: 10/28/2024 [...] retrohepatic inferior vena cava is patent. [place] right kidney is partially visualized. A prominent [...] - 10.8 10E3/uL 10/28/2024 3:07 PM EDT [facility] RBC 2.44(L) 4.20 - 5.80 10E6/uL 10/28/2024 3:07 PM EDT [facility] Hemoglobin 7.5(L) 13.2 - 17.1 g/dL 10/28/2024 3:07 PM EDT [facility] Hematocrit 21.4(L) 38.5 - 50.0 % 10/28/2024 3:07 PM EDT [facility] MCV 87.6 80.0 - 100.0 fL 10/28/2024 3:07 PM EDT [facility] MCH 30.6 27.0 - 33.0 pg 10/28/2024 3:07 PM EDT [facility] MCHC 34.9 32.0 - 36.0 g/dL 10/28/2024 3:07 PM EDT [facility] RDW 18.4(H) 11.0 - 15.0 % 10/28/2024 3:07 PM EDT [facility] Platelets 30(L) 140 - 400 10E3/uL 10/28/2024 3:07 PM EDT [facility] Comment: CNV Specimen checked for clots. None detected. MPV 7.7 7.5 - 11.5 fL 10/28/2024 3:07 PM EDT [facility] Whole Blood 10/28/2024 2:49 PM EDT 10/28/2024 2:53 PM EDT us Carlos Marks MD LAB BLOOD ORDERABLES Final Result [facility] [address] [place], [place] [address] * ECG 12 lead (MUSE) (10/28/2024 1:22 PM EDT) 10/28/2024 1:22 PM EDT Narrative MUSE - 10/29/2024 10:34 PM EDT Ventricular Rate: 104 BPM Atrial Rate: 104 BPM P-R Interval: 172 ms QRS Duration: 90 ms QT: 354 ms QTc: 465 ms P Erie: 58 degrees R Erie: -19 degrees T Erie: 38 degrees Diagnosis Line: SINUS TACHYCARDIA ^ OTHERWISE NORMAL ECG ^ ^ Confirmed by JORGE MACIAS ([id number]) on 10/29/2024 10:34:22 PM us Hillary Fernandes PharmD ECG ORDERABLES Final Res ult MUSE * (ABNORMAL) POC Glucose Monitoring Device (10/28/2024 12:54 PM EDT) [facility] Signature POC Glucose Monitoring Device 119(H) 70 - 100 mg/dL 10/28/2024 12:55 PM EDT [facility] Blood 10/28/2024 12:5 4 PM EDT 10/28/2024 12:55 PM EDT us Semaj Mcnair III, MD POINT OF CARE TEST ORDERABLES Final Result Performing Organization Address City/[facility]/ZIP Co de Phone Number [facility] [address] * Transfuse RBC Transfusion Rate: Per [...] - 15.1 seconds 10/28/2024 11:29 AM EDT [facility] INR 1.1 0.9 - 1.1 10/28/2024 11:29 AM EDT [facility] Comment: RECOMMENDED THERAPEUTIC RANGES USING INR : Stable oral anticoagulant therapy: 2.0 - 3.0 Mechanical prosthetic heart valve: 2.5 - 3.5 Recurrent acute myocardial infarction: 2.5 - 3.5 Plasma 10/28/2024 11:0 9 AM EDT 10/28/2024 11:16 AM EDT us Carlos Marks MD LAB BLOOD ORDERABLES Final Result Performing Organization Address [facility] Co de Phone Number [facility] [address] * (ABNORMAL) Lactic Acid, STAT (10/28/2024 11:09 AM EDT) Lactate 0.3(L) 0.5 - 2.2 mmol/L 10/28/2024 11:37 AM EDT [facility] Plasma 10/28/2024 11:0 9 AM EDT 10/28/2024 11:15 AM EDT us Carlos Marks MD LAB BLOOD ORDERABLES Final Result Performing Organization Address [facility] de Phone Number [facility] [address] [facility]. [address] * Magnesium, STAT (10/28/2024 11:09 AM EDT) Magnesium 2.1 1.5 - 2.5 mg/dL 10/28/2024 11:47 AM EDT [facility] Plasma 10/28/2024 11:0 9 AM EDT 10/28/2024 11:16 AM EDT us Carlos Marks MD LAB BLOOD ORDERABLES Final Result [facility] [address] [address], [facility] * (ABNORMAL) Renal Function Panel w/EGFR, STAT (10/28/2024 11:09 AM EDT) Sodium 144 133 - 146 mmol/L 10/28/2024 11:47 AM EDT [facility] Potassium 3.4(L) 3.5 - 5.3 mmol/L 10/28/2024 11:47 AM EDT [facility] Chloride 112(H) 98 - 110 mmol/L 10/28/2024 11:47 AM EDT [facility] CO2 22 21 - 33 mmol/L 10/28/2024 11:47 AM EDT [facility] Anion Gap 10 3 - 16 mmol/L 10/28/2024 11:47 AM EDT [facility] BUN 57(H) 7 - 25 mg/dL 10/28/2024 11:47 AM EDT [facility] Creatinine 2.01(H) 0.60 - 1.30 mg/dL 10/28/2024 11:47 AM EDT [facility] Glucose 108(H) 70 - 100 mg/dL 10/28/2024 11:47 AM EDT [facility] Calcium 8.8 8.6 - 10.3 mg/dL 10/28/2024 11:47 AM EDT [facility] Phosphorus 4.0 2.1 - 4.7 mg/dL 10/28/2024 11:47 AM EDT [facility] Albumin 3.3(L) 3.5 - 5.7 g/dL 10/28/2024 11:47 AM EDT [facility] Osmolality, Calculated 314(H) 278 - 305 mOsm/kg 10/28/2024 11:47 AM EDT [facility] EGFR 42 10/28/2024 11:47 AM EDT [facility] Comment:As of 2021, the [...] Marks MD LAB BLOOD ORDERABLES Final Result [facility] [address] * (ABNORMAL) TEG-Bypass/ECMO/Liver HN (Factor function, Platelet/Fibrin Clot Strength w/Clot Breakdown, Heparinase In All Channels) (10/28/2024 11:09 AM EDT) [facility] Citrated Kaolin Reaction Time (TEGECMOLIVER) 9.2(H) 4.6 - 9.1 minutes 10/28/2024 12:30 PM EDT [facility] Citrated Kaolin W/Heparinase Reaction Time (TEGECMOLIVER) 9.6(H) 4.3 - 8.3 minutes 10/28/2024 12:30 PM EDT [facility] Citrated Kaolin Maximum Amplitude (TEGECMOLIVER) 51.2(L) 52.0 - 69.0 mm 10/28/2024 12:30 PM EDT [facility] Citrated Functional Fibrinogen W/Heparinase Maximum Amplitude(TEGEC MOLIVER) 21.6 15.0 - 34.0 mm 10/28/2024 12:30 PM EDT [facility] Citrated Rapid Teg W/Heparinase Maximum Amplitude (TEGECMOLIVER) 49.3(L) 53.0 - 69.0 mm 10/28/2024 12:30 PM EDT [facility] Citrated Kaolin w/Heparinase Percent Lysis (TEGECMOLIVER) 0.0 0.0 - 3.2 % 10/28/2024 12:30 PM EDT [facility] Whole Blood (Citrate) 10/28/2024 11:09 AM EDT 10/28/2024 11:14 AM EDT Kemar Sahni MD LAB BLOOD ORDERABLES Final Result Performing Organization Address City/State/[facility] Co de Phone Number [facility] [address] [place] [address], [facility] * (ABNORMAL) CBC (10/28/2024 10:21 AM EDT) WBC 4.1 3.8 - 10.8 10E3/uL 10/28/2024 10:41 AM EDT [facility] RBC 2.30(L) 4.20 - 5.80 10E6/uL 10/28/2024 10:41 AM EDT [facility] Hemoglobin 7.1(L) 13.2 - 17.1 g/dL 10/28/2024 10:41 AM EDT [facility] Hematocrit 20.4(L) 38.5 - 50.0 % 10/28/2024 10:41 AM EDT [facility] MCV 88.5 80.0 - 100.0 fL 10/28/2024 10:41 AM EDT [facility] MCH 30.7 27.0 - 33.0 pg 10/28/2024 10:41 AM EDT [facility] MCHC 34.7 32.0 - 36.0 g/dL 10/28/2024 10:41 AM EDT [facility] RDW 18.7(H) 11.0 - 15.0 % 10/28/2024 10:41 AM EDT [facility] Platelets 37(L) 140 - 400 10E3/uL 10/28/2024 10:41 AM EDT [facility] Comment: CNV Specimen checked for clots. None detected. MPV 7.6 7.5 - 11.5 fL 10/28/2024 10:41 AM EDT [facility] Whole Blood 10/28/2024 10:2 1 AM EDT 10/28/2024 10:29 AM EDT Carlos Marks MD LAB BLOOD ORDERABLES Final Result Performing Organization Address [facility]/ZIP Co de Phone Number [facility] [address] * POC Glucose Monitoring Device (10/28/2024 9:07 AM EDT) POC Glucose Monitoring Device 97 70 - 100 mg/dL 10/28/2024 9:08 AM EDT [facility] Blood 10/28/2024 9:07 AM EDT 10/28/2024 9:08 AM EDT Semaj Mcnair III, MD POINT OF CARE TEST ORDERABLES Final Result Performing Organization Address [facility] de Phone Number [facility] [address] [facility]. [address] * (ABNORMAL) Tacrolimus level (10/28/2024 8:20 AM EDT) Tacrolimus (LC-MS) <1.0(L) 3.0 - 15.0 ng/mL 10/28/2024 2:02 PM EDT [facility] Comment:Performed via liquid chromatography tandem mass spectrometry. Detection limit: 1 ng/mL. Individual target concentrations may vary due to target organ and time after transplant. This test has been developed and its performance characteristics determined by [facility] which is certified under [...] EDT 10/28/2024 8:29 AM EDT Priti Geiger CNP LAB BLOOD ORDERABLES Final Re sult Performing Organization Address [facility] Co de Phone Number [facility] [address] * (ABNORMAL) POC Glucose Monitoring Device (10/28/2024 8:10 AM EDT) POC Glucose Monitoring Device 102(H) 70 - 100 mg/dL 10/28/2024 8:11 AM EDT [facility] Blood 10/28/2024 8:10 AM EDT 10/28/2024 8:11 AM EDT Semaj Mcnair III, MD POINT OF CARE TEST ORDERABLES Final Result Performing Organization Address City/[facility] Co de Phone Number [facility] [address] [facility]. [address] * POC Glucose Monitoring Device (10/28/2024 6:17 AM EDT) POC Glucose Monitoring Device 100 70 - 100 mg/dL 10/28/2024 6:18 AM EDT [facility] Blood 10/28/2024 6:17 AM EDT 10/28/2024 6:18 AM EDT Semaj Mcnair III, MD POINT OF CARE TEST ORDERABLES Final Result Performing Organization Address [facility] de Phone Number [facility] [address] [facility]. [address] * Prepare Platelets, leukoreduced (10/28/2024 6:15 AM EDT) Product Code [id number] HCLL Unit Number [id number] HCLL Dispense Status Presumed Transfused_PT HCLL Blood Expiration Date HCLL Coding System YLJA935 HCLL Product Code L3632S78 HCLL Unit Number [id number] HCLL Dispense Status Presumed Transfused_PT HCLL Blood Expiration Date HCLL Coding System [id number] HCLL us Attending Provider Unknown BLOOD BANK PRODUCT OR DERABLES Final Result HCLL * Prepare Fresh Frozen Plasma (10/28/2024 6:15 AM EDT) Product Code R1797Y63 HCLL Unit Number [id number] HCLL Dispense Status Released from Crossmatch_RE HCLL Blood Expiration Date HCLL Coding System DJIY358 HCLL Product Code M3428Q71 HCLL Unit Number [id number] HCLL Dispense Status Presumed Transfused_PT HCLL Blood Expiration Date HCLL Coding System FRIY113 HCLL Product Code V4933E32 HCLL Unit Number [id number] HCLL Dispense Status Released from Crossmatch_RE HCLL Blood Expiration Date HCLL Coding System QCNM612 HCLL Product Code I2542O71 HCLL Unit Number [id number] HCLL Dispense Status Presumed Transfused_PT HCLL Blood Expiration Date HCLL Coding System NMWS980 HCLL Product Code Q4542D25 HCLL Unit Number [id number] HCLL Dispense Status Released from Crossmatch_RE HCLL Blood Expiration Date 131298723054 HCLL Coding System EUEW913 HCLL Attending Provider Unknown BLOOD BANK PRODUCT OR DERABLES Final Result HCLL * Prepare RBC, leukoreduced (10/28/2024 6:15 AM EDT) Product Code K1969A26 HCLL Unit Number [id number] HCLL Dispense Status Released from Crossmatch_RE HCLL Blood Expiration Date 547108251502 HCLL Coding System TGXQ395 HCLL Product Code L1115A56 HCLL Unit Number [id number] HCLL Dispense Status Presumed Transfused_PT HCLL Blood Expiration Date 529737592232 HCLL Coding System PKOQ694 HCLL Product Code S1840N59 HCLL Unit Number [id number] HCLL Dispense Status Released from Crossmatch_RE HCLL Blood Expiration Date 131139740904 HCLL Coding System DSMD541 HCLL Product Code T5080Y39 HCLL Unit Number [id number] HCLL Dispense Status Presumed Transfused_PT HCLL Blood Expiration Date 869799411648 HCLL Coding System ZBCK557 HCLL Product Code B5522T56 HCLL Unit Number [id number] HCLL Dispense Status Released from Crossmatch_RE HCLL Blood Expiration Date HCLL Coding System AFRZ001 HCLL Attending Provider Unknown BLOOD BANK PRODUCT OR DERABLES Final Result Performing Organization Address City/[facility] Co de Phone Number HCLL * Prepare Platelets, leukoreduced, 1 Units (10/28/2024 6:15 AM EDT) Product Code F7826Q75 HCLL Unit Number [id number] HCLL Dispense Status Presumed Transfused_PT HCLL Blood Expiration Date 353984345347 HCLL Coding System OVAZ003 HCLL Blood Bank Product John Pina MD BLOOD BANK PRODUCT ORDERABLES F inal Result Performing Organization Address [facility] de Phone Number HCLL * Prepare Cryoprecipitate, 1 Units (10/28/2024 6:15 AM EDT) Product Code Y8562O56 HCLL Unit Number [id number] HCLL Dispense Status Presumed Transfused_PT HCLL Blood Expiration Date HCLL Coding System ADMT530 HCLL Product Code I9489X69 HCLL Unit Number [id number] HCLL Dispense Status Presumed Transfused_PT HCLL Blood Expiration Date HCLL Coding System [id number] HCLL Blood Bank Product John Pina MD BLOOD BANK PRODUCT ORDERABLES F inal Result Performing Organization Address City/[facility] Co de Phone Number HCLL * Prepare Fresh Frozen Plasma, 1 Units (10/28/2024 6:15 AM EDT) Product Code T4052W69 HCLL Unit Number [id number] Dispense Status Presumed Transfused_PT HCLL Blood Expiration Date 643847135536 HCLL Coding System YWFL315 HCLL Blood Bank Product John Pina MD BLOOD BANK PRODUCT ORDERABLES F inal Result HCLL * Prepare Cryoprecipitate, 1 Units (10/28/2024 6:15 AM EDT) Product Code D7466I11 HCLL Unit Number [id number] HCLL Dispense Status Presumed Transfused_PT HCLL Blood Expiration Date 431576982325 HCLL Coding System GHJV735 HCLL Product Code Y8155J80 HCLL Unit Number [id number] HCLL Dispense Status Presumed Transfused_PT HCLL Blood Expiration Date 949331926958 HCLL Coding System DZYR913 HCLL Product Code K0694K76 HCLL Unit Number [id number] HCLL Dispense Status Presumed Transfused_PT HCLL Blood Expiration Date 297608018242 HCLL Coding System JLYQ891 HCLL Product Code G0681I67 HCLL Unit Number [id number] HCLL Dispense Status Presumed Transfused_PT HCLL Blood Expiration Date 179138248578 HCLL Coding System YGTV840 HCLL Blood Bank Product John Pina MD BLOOD BANK PRODUCT ORDERABLES F inal Result HCLL * (ABNORMAL) POC Glucose Monitoring Device (10/28/2024 4:55 AM EDT) POC Glucose Monitoring Device 104(H) 70 - 100 mg/dL 10/28/2024 4:57 AM EDT [facility] Blood 10/28/2024 4:55 AM EDT 10/28/2024 4:57 AM EDT Semaj Mcnair III, MD POINT OF CARE TEST ORDERABLES Final Result [facility] [address] * TEG-Bypass/ECMO/Liver HN (Factor function, Platelet/Fibrin Clot Strength w/Clot Breakdown, Heparinase In All Channels) (10/28/2024 4:13 AM EDT) [facility] Citrated Kaolin Reaction Time (TEGECMOLIVER) 7.2 4.6 - 9.1 minutes 10/28/2024 5:38 AM EDT [facility] Citrated Kaolin W/Heparinase Reaction Time (TEGECMOLIVER) 7.8 4.3 - 8.3 minutes 10/28/2024 5:38 AM EDT [facility] Citrated Kaolin Maximum Amplitude (TEGECMOLIVER) 53.0 52.0 - 69.0 mm 10/28/2024 5:38 AM EDT [facility] Citrated Functional Fibrinogen W/Heparinase Maximum Amplitude(TEGEC MOLIVER) 21.4 15.0 - 34.0 mm 10/28/2024 5:38 AM EDT [facility] Citrated Rapid Teg W/Heparinase Maximum Amplitude (TEGECMOLIVER) 54.7 53.0 - 69.0 mm 10/28/2024 5:38 AM EDT [facility] Citrated Kaolin w/Heparinase Percent Lysis (TEGECMOLIVER) 0.0 0.0 - 3.2 % 10/28/2024 5:38 AM EDT [facility] Whole Blood (Citrate) 10/28/2024 4:13 AM EDT 10/28/2024 4:28 AM EDT Kemar Sahni MD LAB BLOOD ORDERABLES Final Result [facility] [address] * Protime-INR (10/28/2024 4:13 AM EDT) Protime 14.6 12.1 - 15.1 seconds 10/28/2024 4:53 AM EDT [facility] INR 1.1 0.9 - 1.1 10/28/2024 4:53 AM EDT [facility] Comment: RECOMMENDED THERAPEUTIC RANGES USING INR : Stable oral anticoagulant therapy: 2.0 - 3.0 Mechanical prosthetic heart valve: 2.5 - 3.5 Recurrent acute myocardial infarction: 2.5 - 3.5 Plasma 10/28/2024 4:13 AM EDT 10/28/2024 4:41 AM EDT Kemar Sahni MD LAB BLOOD ORDERABLES Final Result Performing Organization Address City/[facility]/ZIP Co de Phone Number [facility] [address] [facility]. [address] * Magnesium (10/28/2024 4:13 AM EDT) Pathologist [facility] Magnesium 2.2 1.5 - 2.5 mg/dL 10/28/2024 5:15 AM EDT [facility] Plasma 10/28/2024 4:13 AM EDT 10/28/2024 4:41 AM EDT Kemar Sahni MD LAB BLOOD ORDERABLES Final Result [facility] [address] [facility]. [address] * (ABNORMAL) Hepatic Function Panel (10/28/2024 4:13 AM EDT) Total Bilirubin 2.3(H) 0.0 - 1.5 mg/dL 10/28/2024 5:15 AM EDT [facility] Bilirubin, Direct 1.67(H) 0.00 - 0.40 mg/dL 10/28/2024 5:15 AM EDT [facility] AST 44(H) 13 - 39 U/L 10/28/2024 5:15 AM EDT [facility] ALT 101(H) 7 - 52 U/L 10/28/2024 5:15 AM EDT [facility] Alkaline Phosphatase 26(L) 36 - 125 U/L 10/28/2024 5:15 AM EDT [facility] Total Protein 4.5(L) 6.4 - 8.9 g/dL 10/28/2024 5:15 AM EDT [facility] Albumin 3.1(L) 3.5 - 5.7 g/dL 10/28/2024 5:15 AM EDT [facility] Bilirubin, Indirect 0.63 0.00 - 1.10 mg/dL 10/28/2024 5:15 AM EDT [facility] Plasma 10/28/2024 4:13 AM EDT 10/28/2024 4:41 AM EDT Kemar Sahni MD LAB BLOOD ORDERABLES Final Result Performing Organization Address City/State/[facility] Co de Phone Number [facility] [address] * (ABNORMAL) Renal Function Panel w/EGFR (10/28/2024 4:13 AM EDT) Sodium 142 133 - 146 mmol/L 10/28/2024 5:15 AM EDT [facility] Potassium 3.5 3.5 - 5.3 mmol/L 10/28/2024 5:15 AM EDT [facility] Chloride 111(H) 98 - 110 mmol/L 10/28/2024 5:15 AM EDT [facility] CO2 22 21 - 33 mmol/L 10/28/2024 5:15 AM EDT [facility] Anion Gap 9 3 - 16 mmol/L 10/28/2024 5:15 AM EDT [facility] BUN 58(H) 7 - 25 mg/dL 10/28/2024 5:15 AM EDT [facility] Creatinine 2.24(H) 0.60 - 1.30 mg/dL 10/28/2024 5:15 AM EDT [facility] Glucose 103(H) 70 - 100 mg/dL 10/28/2024 5:15 AM EDT [facility] Calcium 9.1 8.6 - 10.3 mg/dL 10/28/2024 5:15 AM EDT [facility] Phosphorus 4.8(H) 2.1 - 4.7 mg/dL 10/28/2024 5:15 AM EDT [facility] Albumin 3.1(L) 3.5 - 5.7 g/dL 10/28/2024 5:15 AM EDT [facility] Osmolality, Calculated 310(H) 278 - 305 mOsm/kg 10/28/2024 5:15 AM EDT [facility] EGFR 37 10/28/2024 5:15 AM EDT [facility] Comment:As of 2021, the [...] Sahni MD LAB BLOOD ORDERABLES Final Result [facility] [address] [id number], [facility] * (ABNORMAL) CBC (10/28/2024 4:13 AM EDT) WBC 4.5 3.8 - 10.8 10E3/uL 10/28/2024 5:09 AM EDT [facility] RBC 2.39(L) 4.20 - 5.80 10E6/uL 10/28/2024 5:09 AM EDT [facility] Hemoglobin 7.3(L) 13.2 - 17.1 g/dL 10/28/2024 5:09 AM EDT [facility] Hematocrit 21.0(L) 38.5 - 50.0 % 10/28/2024 5:09 AM EDT [facility] MCV 87.8 80.0 - 100.0 fL 10/28/2024 5:09 AM EDT [facility] MCH 30.5 27.0 - 33.0 pg 10/28/2024 5:09 AM EDT [facility] MCHC 34.7 32.0 - 36.0 g/dL 10/28/2024 5:09 AM EDT [facility] RDW 18.7(H) 11.0 - 15.0 % 10/28/2024 5:09 AM EDT [facility] Platelets 38(L) 140 - 400 10E3/uL 10/28/2024 5:09 AM EDT [facility] Comment: CNV Specimen checked for clots. None detected. MPV 7.6 7.5 - 11.5 fL 10/28/2024 5:09 AM EDT [facility] Whole Blood 10/28/2024 4:13 AM EDT 10/28/2024 4:41 AM EDT Kemar Sahni MD LAB BLOOD ORDERABLES Final Result Performing Organization Address City/[facility]/ZIP Co de Phone Number [facility] [address] [facility]. [address] * (ABNORMAL) POC Glucose Monitoring Device (10/28/2024 4:04 AM EDT) [facility] Signature POC Glucose Monitoring Device 103(H) 70 - 100 mg/dL 10/28/2024 4:05 AM EDT [facility] Blood 10/28/2024 4:04 AM EDT 10/28/2024 4:05 AM EDT Semaj Mcnair III, MD POINT OF CARE TEST ORDERABLES Final Result [facility] [address] [facility] * (ABNORMAL) POC Glucose Monitoring Device (10/28/2024 3:00 AM EDT) POC Glucose Monitoring Device 106(H) 70 - 100 mg/dL 10/28/2024 3:01 AM EDT [facility] Blood 10/28/2024 3:00 AM EDT 10/28/2024 3:01 AM EDT us Semaj Mcnair III, MD POINT OF CARE TEST ORDERABLES Final Result [facility] [address] * (ABNORMAL) POC Glucose Monitoring Device (10/28/2024 2:32 AM EDT) POC Glucose Monitoring Device 109(H) 70 - 100 mg/dL 10/28/2024 2:33 AM EDT [facility] Blood 10/28/2024 2:32 AM EDT 10/28/2024 2:33 AM EDT us Semaj Mcnair III, MD POINT OF CARE TEST ORDERABLES Final Result Performing Organization Address City/[facility]/ZIP Co de Phone Number [facility] [address] [facility]. [address] * (ABNORMAL) POC Glucose Monitoring Device (10/28/2024 2:14 AM EDT) POC Glucose Monitoring Device 115(H) 70 - 100 mg/dL 10/28/2024 2:15 AM EDT [facility] Blood 10/28/2024 2:14 AM EDT 10/28/2024 2:15 AM EDT us Semaj Mcnair III, MD POINT OF CARE TEST ORDERABLES Final Result [facility] [address] * (ABNORMAL) POC Glucose Monitoring Device (10/28/2024 2:03 AM EDT) POC Glucose Monitoring Device 101(H) 70 - 100 mg/dL 10/28/2024 2:04 AM EDT [facility] Blood 10/28/2024 2:03 AM EDT 10/28/2024 2:04 AM EDT Semaj Mcnair III, MD POINT OF CARE TEST ORDERABLES Final Result Performing Organization Address City/[facility]/ZIP Co de Phone Number [facility] [address] * Transfuse RBC Transfusion Rate: Per dept routine (10/28/2024 1:51 AM EDT) John Moreno MD NURSING TREATMENT ORDERABLES - BLOOD ADMIN Final Result Performing Organization Address City/[facility]/ZIP Co de Phone Number EXTERNAL * Transfuse RBC Transfusion Rate: Per dept routine, 1 Units (10/28/2024 1:51 AM EDT) John Moreno MD NURSING TREATMENT ORDERABLES - BLOOD ADMIN Final Result Performing Organization Address City/[facility] Co de Phone Number EXTERNAL * (ABNORMAL) TEG-Bypass/ECMO/Liver HN (Factor function, Platelet/Fibrin Clot Strength w/Clot Breakdown, Heparinase In All Channels) (10/28/2024 12:05 AM EDT) Citrated Kaolin Reaction Time (TEGECMOLIVER) 7.5 4.6 - 9.1 minutes 10/28/2024 1:22 AM EDT [facility] Citrated Kaolin W/Heparinase Reaction Time (TEGECMOLIVER) 7.7 4.3 - 8.3 minutes 10/28/2024 1:22 AM EDT [facility] Citrated Kaolin Maximum Amplitude (TEGECMOLIVER) 54.4 52.0 - 69.0 mm 10/28/2024 1:22 AM EDT [facility] Citrated Functional Fibrinogen W/Heparinase Maximum Amplitude(TEGEC MOLIVER) 20.4 15.0 - 34.0 mm 10/28/2024 1:22 AM EDT [facility] Citrated Rapid Teg W/Heparinase Maximum Amplitude (TEGECMOLIVER) 51.0(L) 53.0 - 69.0 mm 10/28/2024 1:22 AM EDT [facility] Citrated Kaolin w/Heparinase Percent Lysis (TEGECMOLIVER) 0.0 0.0 - 3.2 % 10/28/2024 1:22 AM EDT [facility] Whole Blood (Citrate) 10/28/2024 12:05 AM EDT 10/28/2024 12:09 AM EDT Kemar Sahni MD LAB BLOOD ORDERABLES Final Result Performing Organization Address City/[facility]/ZIP Co de Phone Number [facility] [address] [facility]. [address] * Magnesium (10/28/2024 12:05 AM EDT) Magnesium 2.2 1.5 - 2.5 mg/dL 10/28/2024 1:59 AM EDT [facility] Plasma 10/28/2024 12:0 5 AM EDT 10/28/2024 12:11 AM EDT Kemar Sahni MD LAB BLOOD ORDERABLES Final Result Performing Organization Address City/[facility] Co de Phone Number [facility] [address] [facility]. [address] * (ABNORMAL) Renal Function Panel w/EGFR (10/28/2024 12:05 AM EDT) Sodium 144 133 - 146 mmol/L 10/28/2024 1:59 AM EDT [facility] Potassium 3.4(L) 3.5 - 5.3 mmol/L 10/28/2024 1:59 AM EDT [facility] Chloride 112(H) 98 - 110 mmol/L 10/28/2024 1:59 AM EDT [facility] CO2 19(L) 21 - 33 mmol/L 10/28/2024 1:59 AM EDT [facility] Anion Gap 13 3 - 16 mmol/L 10/28/2024 1:59 AM EDT [facility] BUN 59(H) 7 - 25 mg/dL 10/28/2024 1:59 AM EDT [facility] Creatinine 2.42(H) 0.60 - 1.30 mg/dL 10/28/2024 1:59 AM EDT [facility] Glucose 118(H) 70 - 100 mg/dL 10/28/2024 1:59 AM EDT [facility] Calcium 9.0 8.6 - 10.3 mg/dL 10/28/2024 1:59 AM EDT [facility] Phosphorus 5.3(H) 2.1 - 4.7 mg/dL 10/28/2024 1:59 AM EDT [facility] Albumin 3.1(L) 3.5 - 5.7 g/dL 10/28/2024 1:59 AM EDT [facility] Osmolality, Calculated 316(H) 278 - 305 mOsm/kg 10/28/2024 1:59 AM EDT [facility] EGFR 34 10/28/2024 1:59 AM EDT [facility] Comment:As of 2021, the [...] Sahni MD LAB BLOOD ORDERABLES Final Result [facility] [address] * (ABNORMAL) Differential (10/28/2024 12:05 AM EDT) Neutrophils Relative 88.6(H) 40.0 - 80.0 % 10/28/2024 12:41 AM EDT [facility] Lymphocytes Relative 2.5(L) 15.0 - 45.0 % 10/28/2024 12:41 AM EDT [facility] Monocytes Relative 6.1 0.0 - 12.0 % 10/28/2024 12:41 AM EDT [facility] Eosinophils Relative 2.4 0.0 - 8.0 % 10/28/2024 12:41 AM EDT [facility] Basophils Relative 0.4 0.0 - 1.0 % 10/28/2024 12:41 AM EDT [facility] nRBC 0 0 - 0 /100 WBC 10/28/2024 12:41 AM EDT [facility] Neutrophils Absolute 4,341 1,520 - 8,640 /uL 10/28/2024 12:41 AM EDT [facility] Lymphocytes Absolute 123(L) 570 - 4,860 /uL 10/28/2024 12:41 AM EDT [facility] Monocytes Absolute 299 0 - 1,296 /uL 10/28/2024 12:41 AM EDT [facility] Eosinophils Absolute 118 0 - 864 /uL 10/28/2024 12:41 AM EDT [facility] Basophils Absolute 20 0 - 108 /uL 10/28/2024 12:41 AM EDT [facility] Whole Blood 10/28/2024 12:0 5 AM EDT 10/28/2024 12:11 AM EDT us Kemar Sahni MD LAB BLOOD ORDERABLES Final Result [facility] [address] * (ABNORMAL) CBC (10/28/2024 12:05 AM EDT) WBC 4.9 3.8 - 10.8 10E3/uL 10/28/2024 12:41 AM EDT [facility] RBC 2.18(L) 4.20 - 5.80 10E6/uL 10/28/2024 12:41 AM EDT [facility] Hemoglobin 6.7(L) 13.2 - 17.1 g/dL 10/28/2024 12:41 AM EDT [facility] Hematocrit 19.2(L) 38.5 - 50.0 % 10/28/2024 12:41 AM EDT [facility] MCV 87.8 80.0 - 100.0 fL 10/28/2024 12:41 AM EDT [facility] MCH 30.6 27.0 - 33.0 pg 10/28/2024 12:41 AM EDT [facility] MCHC 34.8 32.0 - 36.0 g/dL 10/28/2024 12:41 AM EDT [facility] RDW 19.6(H) 11.0 - 15.0 % 10/28/2024 12:41 AM EDT [facility] Platelets 45(L) 140 - 400 10E3/uL 10/28/2024 12:41 AM EDT [facility] Comment: CNV Specimen checked for clots. None detected. MPV 7.8 7.5 - 11.5 fL 10/28/2024 12:41 AM EDT [facility] Whole Blood 10/28/2024 12:0 5 AM EDT 10/28/2024 12:11 AM EDT Kemar Sahni MD LAB BLOOD ORDERABLES Final Result [facility] [address] * (ABNORMAL) POC Glucose Monitoring Device (10/28/2024 12:03 AM EDT) [facility] POC Glucose Monitoring Device 122(H) 70 - 100 mg/dL 10/28/2024 12:04 AM EDT [facility] Blood 10/28/2024 12:0 3 AM EDT 10/28/2024 12:04 AM EDT us Semaj Mcnair III, MD POINT OF CARE TEST ORDERABLES Final Result Performing Organization Address City/[facility] Co de Phone Number [facility] [address] [place] [address]. [address] * (ABNORMAL) POC Glucose Monitoring Device (10/27/2024 10:03 PM EDT) POC Glucose Monitoring Device 127(H) 70 - 100 mg/dL 10/27/2024 10:03 PM EDT [facility] Blood 10/27/2024 10:0 3 PM EDT 10/27/2024 10:03 PM EDT us Semaj Mcnair III, MD POINT OF CARE TEST ORDERABLES Final Result Performing Organization Address [facility] Co de Phone Number [address] * (ABNORMAL) POC Glucose Monitoring Device (10/27/2024 8:06 PM EDT) POC Glucose Monitoring Device 128(H) 70 - 100 mg/dL 10/27/2024 8:45 PM EDT [facility] Blood 10/27/2024 8:06 PM EDT 10/27/2024 8:45 PM EDT us Semaj Mcnair III, MD POINT OF CARE TEST ORDERABLES Final Result Performing Organization Address City/[facility] Co de Phone Number [address] * (ABNORMAL) POC Glucose Monitoring Device (10/27/2024 6:00 PM EDT) POC Glucose Monitoring Device 128(H) 70 - 100 mg/dL 10/27/2024 6:00 PM EDT [facility] Blood 10/27/2024 6:00 PM EDT 10/27/2024 6:00 PM EDT us Semaj Mcnair III, MD POINT OF CARE TEST ORDERABLES Final Result [facility] [address] [facility]. [address] * Lactic Acid, STAT (10/27/2024 5:41 PM EDT) Lactate 0.5 0.5 - 2.2 mmol/L 10/27/2024 6:28 PM EDT [facility] Plasma 10/27/2024 5:41 PM EDT 10/27/2024 5:49 PM EDT Narrative [facility] - 10/27/2024 6:28 PM EDT Redraw John Moreno MD LAB BLOOD ORDERABLES Final R esult Performing Organization Address [facility] Co de Phone Number [facility] [address] * (ABNORMAL) Hepatic Function Panel, STAT (10/27/2024 5:13 PM EDT) Total Bilirubin 1.7(H) 0.0 - 1.5 mg/dL 10/27/2024 5:50 PM EDT [facility] Bilirubin, Direct 1.17(H) 0.00 - 0.40 mg/dL 10/27/2024 5:50 PM EDT [facility] AST 60(H) 13 - 39 U/L 10/27/2024 5:50 PM EDT [facility] ALT 134(H) 7 - 52 U/L 10/27/2024 5:50 PM EDT [facility] Alkaline Phosphatase 27(L) 36 - 125 U/L 10/27/2024 5:50 PM EDT [facility] Total Protein 4.1(L) 6.4 - 8.9 g/dL 10/27/2024 5:50 PM EDT [facility] Albumin 2.9(L) 3.5 - 5.7 g/dL 10/27/2024 5:50 PM EDT [facility] Bilirubin, Indirect 0.53 0.00 - 1.10 mg/dL 10/27/2024 5:50 PM EDT [facility] Plasma 10/27/2024 5:13 PM EDT 10/27/2024 5:23 PM EDT us Shay Plata MD LAB BLOOD ORDERABLES Final Result [facility] [address] * (ABNORMAL) TEG-Bypass/ECMO/Liver HN (Factor function, Platelet/Fibrin Clot Strength w/Clot Breakdown, Heparinase In All Channels) (10/27/2024 5:13 PM EDT) [facility] Citrated Kaolin Reaction Time (TEGECMOLIVER) 8.0 4.6 - 9.1 minutes 10/27/2024 6:56 PM EDT [facility] Citrated Kaolin W/Heparinase Reaction Time (TEGECMOLIVER) 6.8 4.3 - 8.3 minutes 10/27/2024 6:56 PM EDT [facility] Citrated Kaolin Maximum Amplitude (TEGECMOLIVER) 55.4 52.0 - 69.0 mm 10/27/2024 6:56 PM EDT [facility] Citrated Functional Fibrinogen W/Heparinase Maximum Amplitude(TEGEC MOLIVER) 22.9 15.0 - 34.0 mm 10/27/2024 6:56 PM EDT [facility] Citrated Rapid Teg W/Heparinase Maximum Amplitude (TEGECMOLIVER) 50.8(L) 53.0 - 69.0 mm 10/27/2024 6:56 PM EDT [facility] Citrated Kaolin w/Heparinase Percent Lysis (TEGECMOLIVER) 0.1 0.0 - 3.2 % 10/27/2024 6:56 PM EDT [facility] Whole Blood (Citrate) 10/27/2024 5:13 PM EDT 10/27/2024 5:20 PM EDT Kemar Sahni MD LAB BLOOD ORDERABLES Final Result [facility] [address] * (ABNORMAL) Protime-INR (10/27/2024 5:13 PM EDT) Protime 15.2(H) 12.1 - 15.1 seconds 10/27/2024 5:40 PM EDT [facility] INR 1.1 0.9 - 1.1 10/27/2024 5:40 PM EDT [facility] Comment: RECOMMENDED THERAPEUTIC RANGES USING INR : Stable oral anticoagulant therapy: 2.0 - 3.0 Mechanical prosthetic heart valve: 2.5 - 3.5 Recurrent acute myocardial infarction: 2.5 - 3.5 Plasma 10/27/2024 5:13 PM EDT 10/27/2024 5:23 PM EDT Kemar Sahni MD LAB BLOOD ORDERABLES Final Result [facility] [address] * Magnesium (10/27/2024 5:13 PM EDT) Pathologist [facility] [place] Magnesium 2.4 1.5 - 2.5 mg/dL 10/27/2024 5:53 PM EDT [facility] Plasma 10/27/2024 5:13 PM EDT 10/27/2024 5:23 PM EDT Kemar Sahni MD LAB BLOOD ORDERABLES Final Result [facility] [address] [facility]. [address] * (ABNORMAL) Hepatic Function Panel (10/27/2024 5:13 PM EDT) Total Bilirubin 1.7(H) 0.0 - 1.5 mg/dL 10/27/2024 5:53 PM EDT [facility] Bilirubin, Direct 1.10(H) 0.00 - 0.40 mg/dL 10/27/2024 5:53 PM EDT [facility] AST 62(H) 13 - 39 U/L 10/27/2024 5:53 PM EDT [facility] ALT 134(H) 7 - 52 U/L 10/27/2024 5:53 PM EDT [facility] Alkaline Phosphatase 27(L) 36 - 125 U/L 10/27/2024 5:53 PM EDT [facility] Total Protein 4.1(L) 6.4 - 8.9 g/dL 10/27/2024 5:53 PM EDT [facility] Albumin 2.9(L) 3.5 - 5.7 g/dL 10/27/2024 5:53 PM EDT [facility] Bilirubin, Indirect 0.60 0.00 - 1.10 mg/dL 10/27/2024 5:53 PM EDT [facility] Plasma 10/27/2024 5:13 PM EDT 10/27/2024 5:23 PM EDT Kemar Sahni MD LAB BLOOD ORDERABLES Final Result [facility] [address] * (ABNORMAL) Renal Function Panel w/EGFR (10/27/2024 5:13 PM EDT) Sodium 142 133 - 146 mmol/L 10/27/2024 5:53 PM EDT [facility] Potassium 3.4(L) 3.5 - 5.3 mmol/L 10/27/2024 5:53 PM EDT [facility] Chloride 109 98 - 110 mmol/L 10/27/2024 5:53 PM EDT [facility] CO2 22 21 - 33 mmol/L 10/27/2024 5:53 PM EDT [facility] Anion Gap 11 3 - 16 mmol/L 10/27/2024 5:53 PM EDT [facility] BUN 61(H) 7 - 25 mg/dL 10/27/2024 5:53 PM EDT [facility] Creatinine 2.42(H) 0.60 - 1.30 mg/dL 10/27/2024 5:53 PM EDT [facility] Glucose 125(H) 70 - 100 mg/dL 10/27/2024 5:53 PM EDT [facility] Calcium 8.8 8.6 - 10.3 mg/dL 10/27/2024 5:53 PM EDT [facility] Phosphorus 5.7(H) 2.1 - 4.7 mg/dL 10/27/2024 5:53 PM EDT [facility] Albumin 2.9(L) 3.5 - 5.7 g/dL 10/27/2024 5:53 PM EDT [facility] Osmolality, Calculated 313(H) 278 - 305 mOsm/kg 10/27/2024 5:53 PM EDT [facility] EGFR 34 10/27/2024 5:53 PM EDT [facility] Comment:As of 2021, the [...] Sahni MD LAB BLOOD ORDERABLES Final Result [facility] [address] [place] [address], [facility] * (ABNORMAL) CBC (10/27/2024 5:13 PM EDT) WBC 4.9 3.8 - 10.8 10E3/uL 10/27/2024 6:14 PM EDT [facility] RBC 2.44(L) 4.20 - 5.80 10E6/uL 10/27/2024 6:14 PM EDT [facility] Hemoglobin 7.4(L) 13.2 - 17.1 g/dL 10/27/2024 6:14 PM EDT [facility] Hematocrit 21.4(L) 38.5 - 50.0 % 10/27/2024 6:14 PM EDT [facility] MCV 87.6 80.0 - 100.0 fL 10/27/2024 6:14 PM EDT [facility] MCH 30.3 27.0 - 33.0 pg 10/27/2024 6:14 PM EDT [facility] MCHC 34.6 32.0 - 36.0 g/dL 10/27/2024 6:14 PM EDT [facility] RDW 19.6(H) 11.0 - 15.0 % 10/27/2024 6:14 PM EDT [facility] Platelets 47(L) 140 - 400 10E3/uL 10/27/2024 6:14 PM EDT [facility] Comment: CNV Specimen checked for clots. None detected. MPV 8.1 7.5 - 11.5 fL 10/27/2024 6:14 PM EDT [facility] Whole Blood 10/27/2024 5:13 PM EDT 10/27/2024 5:23 PM EDT Kemar Sahni MD LAB BLOOD ORDERABLES Final Result Performing Organization Address City/State/[facility] Co de Phone Number [facility] [address] * (ABNORMAL) POC Glucose Monitoring Device (10/27/2024 3:57 PM EDT) POC Glucose Monitoring Device 131(H) 70 - 100 mg/dL 10/27/2024 3:58 PM EDT [facility] Blood 10/27/2024 3:57 PM EDT 10/27/2024 3:58 PM EDT Semaj Mcnair III, MD POINT OF CARE TEST ORDERABLES Final Result [facility] [address] [facility]. [address] * (ABNORMAL) CBC, STAT (10/27/2024 2:40 PM EDT) Pathologist [facility] [place] WBC 5.8 3.8 - 10.8 10E3/uL 10/27/2024 2:54 PM EDT [facility] RBC 2.43(L) 4.20 - 5.80 10E6/uL 10/27/2024 2:54 PM EDT [facility] Hemoglobin 7.5(L) 13.2 - 17.1 g/dL 10/27/2024 2:54 PM EDT [facility] Hematocrit 21.5(L) 38.5 - 50.0 % 10/27/2024 2:54 PM EDT [facility] MCV 88.2 80.0 - 100.0 fL 10/27/2024 2:54 PM EDT [facility] MCH 30.7 27.0 - 33.0 pg 10/27/2024 2:54 PM EDT [facility] MCHC 34.8 32.0 - 36.0 g/dL 10/27/2024 2:54 PM EDT [facility] RDW 19.1(H) 11.0 - 15.0 % 10/27/2024 2:54 PM EDT [facility] Platelets 50(L) 140 - 400 10E3/uL 10/27/2024 2:54 PM EDT [facility] MPV 7.5 7.5 - 11.5 fL 10/27/2024 2:54 PM EDT [facility] Whole Blood 10/27/2024 2:40 PM EDT 10/27/2024 2:44 PM EDT us John Moreno MD LAB BLOOD ORDERABLES Final R esult [facility] [address] [facility]. [address] * (ABNORMAL) Blood Gas, Arterial, STAT (10/27/2024 2:40 PM EDT) Pathologist [facility] [place] O2 Sat, Arterial 98 10/27/2024 2:46 PM EDT [facility] FIO2 RA 10/27/2024 2:46 PM EDT [facility] pH, Arterial 7.37 7.35 - 7.45 10/27/2024 2:46 PM EDT [facility] pCO2, Arterial 35 35 - 45 mm Hg 10/27/2024 2:46 PM EDT [facility] pO2, Arterial 92 80 - 100 mm Hg 10/27/2024 2:46 PM EDT [facility] HCO3, Arterial 21(L) 22 - 26 mmol/L 10/27/2024 2:46 PM EDT [facility] CO2 Content,Arteri al 21(L) 23 - 27 mmol/L 10/27/2024 2:46 PM EDT [facility] Base Excess, Arterial -4.6(L) -2.0 - 3.0 mmol/L 10/27/2024 2:46 PM EDT [facility] %HBO2, Arterial 95.4 95.0 - 98.0 % 10/27/2024 2:46 PM EDT [facility] Carboxyhemoglo bin, Arterial 1.6 % 10/27/2024 2:46 PM EDT [facility] Comment: CARBOXYHEMOGLOBIN (CO) REFERENCE RANGES: Non-Smokers: <2 % Smokers: <8 % TOXIC: >20 % Methemoglobin, Arterial 1.0 0.0 - 1.5 % 10/27/2024 2:46 PM EDT [facility] Reduced hemoglobin, Arterial 2.1 0.0 - 5.0 % 10/27/2024 2:46 PM EDT [facility] Blood, Arterial 10/27/2024 2 :40 PM EDT 10/27/2024 2:44 PM EDT Narrative [facility] - 10/27/2024 2:46 PM EDT Post extubation us John Moreno MD LAB BLOOD ORDERABLES Final R esult [facility] [address] [place] [address], [facility] * (ABNORMAL) POC Glucose Monitoring Device (10/27/2024 2:06 PM EDT) [facility] POC Glucose Monitoring Device 134(H) 70 - 100 mg/dL 10/27/2024 2:06 PM EDT [facility] Blood 10/27/2024 2:06 PM EDT 10/27/2024 2:06 PM EDT Semaj Mcnair III, MD POINT OF CARE TEST ORDERABLES Final Result Performing Organization Address City/State/[facility] Co de Phone Number [facility] [address] [place] [address], [facility] * (ABNORMAL) Blood gas, arterial (10/27/2024 12:35 PM EDT) [facility] O2 Sat, Arterial 99 10/27/2024 12:46 PM EDT [facility] FIO2 SBT 30% 10/27/2024 12:46 PM EDT [facility] pH, Arterial 7.35 7.35 - 7.45 10/27/2024 12:46 PM EDT [facility] pCO2, Arterial 37 35 - 45 mm Hg 10/27/2024 12:46 PM EDT [facility] pO2, Arterial 182(H) 80 - 100 mm Hg 10/27/2024 12:46 PM EDT [facility] HCO3, Arterial 21(L) 22 - 26 mmol/L 10/27/2024 12:46 PM EDT [facility] CO2 Content,Arteri al 22(L) 23 - 27 mmol/L 10/27/2024 12:46 PM EDT [facility] Base Excess, Arterial -4.8(L) -2.0 - 3.0 mmol/L 10/27/2024 12:46 PM EDT [facility] %HBO2, Arterial 96.3 95.0 - 98.0 % 10/27/2024 12:46 PM EDT [facility] Carboxyhemoglo bin, Arterial 1.7 % 10/27/2024 12:46 PM EDT [facility] Comment: CARBOXYHEMOGLOBIN (CO) REFERENCE RANGES: Non-Smokers: <2 % Smokers: <8 % TOXIC: >20 % Methemoglobin, Arterial 1.4 0.0 - 1.5 % 10/27/2024 12:46 PM EDT [facility] Reduced hemoglobin, Arterial 0.6 0.0 - 5.0 % 10/27/2024 12:46 PM EDT [facility] Blood, Arterial 10/27/2024 1 2:35 PM EDT 10/27/2024 12:42 PM EDT Narrative [facility] - 10/27/2024 12:46 PM EDT Please obtain post SBT us Shay Sifuentes MD LAB BLOOD ORDERABLES Final Resu lt [facility] [address] [place] [id number], [facility] * (ABNORMAL) TEG-Bypass/ECMO/Liver HN (Factor function, Platelet/Fibrin Clot Strength w/Clot Breakdown, Heparinase In All Channels) (10/27/2024 12:07 PM EDT) Citrated Kaolin Reaction Time (TEGECMOLIVER) 7.9 4.6 - 9.1 minutes 10/27/2024 1:24 PM EDT [facility] Citrated Kaolin W/Heparinase Reaction Time (TEGECMOLIVER) 8.3 4.3 - 8.3 minutes 10/27/2024 1:[address] [facility] Citrated Kaolin Maximum Amplitude (TEGECMOLIVER) 52.0 52.0 - 69.0 mm 10/27/2024 1:24 PM EDT [facility] Citrated Functional Fibrinogen W/Heparinase Maximum Amplitude(TEGEC MOLIVER) 20.1 15.0 - 34.0 mm 10/27/2024 1:24 PM EDT [facility] Citrated Rapid Teg W/Heparinase Maximum Amplitude (TEGECMOLIVER) 49.4(L) 53.0 - 69.0 mm 10/27/2024 1:24 PM EDT [facility] Citrated Kaolin w/Heparinase Percent Lysis (TEGECMOLIVER) 0.0 0.0 - 3.2 % 10/27/2024 1:24 PM EDT [facility] Whole Blood (Citrate) 10/27/2024 12:07 PM EDT 10/27/2024 12:09 PM EDT Kemar Sahni MD LAB BLOOD ORDERABLES Final Result Performing Organization Address City/[facility] Co de Phone Number [facility] [address] [facility]. [address] * (ABNORMAL) POC Glucose Monitoring Device (10/27/2024 12:01 PM EDT) POC Glucose Monitoring Device 121(H) 70 - 100 mg/dL 10/27/2024 12:02 PM EDT [facility] Blood 10/27/2024 12:0 1 PM EDT 10/27/2024 12:01 PM EDT Semaj Mcnair III, MD POINT OF CARE TEST ORDERABLES Final Result Performing Organization Address [facility] Co de Phone Number [facility] [address] [facility]. [address] * (ABNORMAL) POC Glucose Monitoring Device (10/27/2024 10:59 AM EDT) POC Glucose Monitoring Device 126(H) 70 - 100 mg/dL 10/27/2024 11:10 AM EDT [facility] Blood 10/27/2024 10:5 9 AM EDT 10/27/2024 11:10 AM EDT Semaj Mcnair III, MD POINT OF CARE TEST ORDERABLES Final Result Performing Organization Address [facility] Co de Phone Number [facility] [address] [facility]. [address] * ECG 12 lead (MUSE) (10/27/2024 10:17 AM EDT) 10/27/2024 10:1 7 AM EDT Narrative MUSE - 10/27/2024 2:51 PM EDT Ventricular Rate: 91 BPM Atrial Rate: 91 BPM P-R Interval: 168 ms QRS Duration: 90 ms QT: 274 ms QTc: 337 ms P Erie: 60 degrees R Erie: -30 degrees T Erie: -15 degrees Diagnosis Line: NORMAL SINUS RHYTHM ^ LEFT AXIS DEVIATION, LEFT ANTERIOR HEMIBLOCK ^ NONSPECIFIC T WAVE CHANGE ^ ABNORMAL ECG ^ ^ Confirmed by MD ROLLY, [facility] ([id number]) on 10/27/2024 2:51:52 PM Shay Sifuentes MD ECG ORDERABLES Final Result MUSE * (ABNORMAL) POC Glucose Monitoring Device (10/27/2024 10:00 AM EDT) [facility] POC Glucose Monitoring Device 121(H) 70 - 100 mg/dL 10/27/2024 10:01 AM EDT [facility] Blood 10/27/2024 10:0 0 AM EDT 10/27/2024 10:01 AM EDT Semaj Mcnair III, MD POINT OF CARE TEST ORDERABLES Final Result Performing Organization Address [facility] Co de Phone Number [facility] [address] * US Renal Transplant (10/27/2024 9:51 [...] US ORDERABLES Final Result * US Duplex [id number]-[id number]-[id number] Comp (10/27/2024 9:51 AM EDT) Anatomical Region [...] EXAM: US ABDOMEN LIMITED EXAM: US DUPLEX [id number] COMPLETE INDICATION: Post-op liver transplant COMPARISON: None [...] absent.. Pancreas: Obscured by overlying bowel gas. [place] right kidney: 12.5 cm in length. Normal [...] EXAM: US ABDOMEN LIMITED EXAM: US DUPLEX [id number] COMPLETE INDICATION: Post-op liver transplant COMPARISON: None [...] absent.. Pancreas: Obscured by overlying bowel gas. [place] right kidney: 12.5 cm in length. Normal [...] EXAM: US ABDOMEN LIMITED EXAM: US DUPLEX [id number] COMPLETE INDICATION: Post-op liver transplant COMPARISON: None [...] absent.. Pancreas: Obscured by overlying bowel gas. [place] right kidney: 12.5 cm in length. Normal [...] EXAM: US ABDOMEN LIMITED EXAM: US DUPLEX [id number] COMPLETE INDICATION: Post-op liver transplant COMPARISON: None [...] absent.. Pancreas: Obscured by overlying bowel gas. [place] right kidney: 12.5 cm in length. Normal [...] ORDERABLES Final Result Performing Organization Address City/State/[facility] Co de Phone Number [facility] [address] [place] [address], [facility] * X-ray Portable Chest (10/27/2024 [...] - 15.1 seconds 10/27/2024 8:35 AM EDT [facility] INR 1.2(H) 0.9 - 1.1 10/27/2024 8:35 AM EDT [facility] Comment: RECOMMENDED THERAPEUTIC RANGES USING INR : Stable oral anticoagulant therapy: 2.0 - 3.0 Mechanical prosthetic heart valve: 2.5 - 3.5 Recurrent acute myocardial infarction: 2.5 - 3.5 Plasma 10/27/2024 8:16 AM EDT 10/27/2024 8:20 AM EDT John Moreno MD LAB BLOOD ORDERABLES Final R esult [facility] [address] * Magnesium (10/27/2024 8:00 AM EDT) Magnesium 1.8 1.5 - 2.5 mg/dL 10/27/2024 10:50 AM EDT [facility] Plasma 10/27/2024 8:00 AM EDT 10/27/2024 10:31 AM EDT Kemar Sahni MD LAB BLOOD ORDERABLES Final Result Performing Organization Address City/[facility]/ZIP Co de Phone Number [facility] [address] * (ABNORMAL) Renal Function Panel w/EGFR (10/27/2024 8:00 AM EDT) Sodium 142 133 - 146 mmol/L 10/27/2024 10:18 AM EDT [facility] Potassium 3.0(L) 3.5 - 5.3 mmol/L 10/27/2024 10:18 AM EDT [facility] Chloride 109 98 - 110 mmol/L 10/27/2024 10:18 AM EDT [facility] CO2 21 21 - 33 mmol/L 10/27/2024 10:18 AM EDT [facility] Anion Gap 12 3 - 16 mmol/L 10/27/2024 10:18 AM EDT [facility] BUN 59(H) 7 - 25 mg/dL 10/27/2024 10:18 AM EDT [facility] Creatinine 2.54(H) 0.60 - 1.30 mg/dL 10/27/2024 10:18 AM EDT [facility] Glucose 111(H) 70 - 100 mg/dL 10/27/2024 10:18 AM EDT [facility] Calcium 9.1 8.6 - 10.3 mg/dL 10/27/2024 10:18 AM EDT [facility] Phosphorus 5.5(H) 2.1 - 4.7 mg/dL 10/27/2024 10:18 AM EDT [facility] Albumin 3.0(L) 3.5 - 5.7 g/dL 10/27/2024 10:18 AM EDT [facility] Osmolality, Calculated 311(H) 278 - 305 mOsm/kg 10/27/2024 10:18 AM EDT [facility] EGFR 32 10/27/2024 10:18 AM EDT [facility] Comment:As of 2021, the [...] ORDERABLES Final Result Performing Organization Address City/State/[facility] Co de Phone Number [facility] [address] [place], [place] [address] * (ABNORMAL) Hepatic Function Panel, STAT (10/27/2024 8:00 AM EDT) Total Bilirubin 1.3 0.0 - 1.5 mg/dL 10/27/2024 8:51 AM EDT [facility] Bilirubin, Direct 0.93(H) 0.00 - 0.40 mg/dL 10/27/2024 8:51 AM EDT [facility] AST 88(H) 13 - 39 U/L 10/27/2024 8:51 AM EDT [facility] ALT 149(H) 7 - 52 U/L 10/27/2024 8:51 AM EDT [facility] Alkaline Phosphatase 26(L) 36 - 125 U/L 10/27/2024 8:51 AM EDT [facility] Total Protein 4.0(L) 6.4 - 8.9 g/dL 10/27/2024 8:51 AM EDT [facility] Albumin 3.0(L) 3.5 - 5.7 g/dL 10/27/2024 8:51 AM EDT [facility] Bilirubin, Indirect 0.37 0.00 - 1.10 mg/dL 10/27/2024 8:51 AM EDT [facility] Plasma 10/27/2024 8:00 AM EDT 10/27/2024 8:20 AM EDT Semaj Mcnair III, MD LAB BLOOD ORDERABLE S Final Result Performing Organization Address [facility] Co de Phone Number [facility] [address] * (ABNORMAL) Lactic Acid, STAT (10/27/2024 8:00 AM EDT) Lactate 0.4(L) 0.5 - 2.2 mmol/L 10/27/2024 8:43 AM EDT [facility] Plasma 10/27/2024 8:00 AM EDT 10/27/2024 8:20 AM EDT Semaj Mcnair III, MD LAB BLOOD ORDERABLE S Final Result Performing Organization Address [facility]/ZIP Co de Phone Number [facility] [address] * (ABNORMAL) Blood Gas, Arterial, STAT (10/27/2024 8:00 AM EDT) O2 Sat, Arterial 100 10/27/2024 8:23 AM EDT [facility] pH, Arterial 7.36 7.35 - 7.45 10/27/2024 8:23 AM EDT [facility] pCO2, Arterial 37 35 - 45 mm Hg 10/27/2024 8:23 AM EDT [facility] pO2, Arterial 245(H) 80 - 100 mm Hg 10/27/2024 8:23 AM EDT [facility] HCO3, Arterial 22 22 - 26 mmol/L 10/27/2024 8:23 AM EDT [facility] CO2 Content,Arteri al 22(L) 23 - 27 mmol/L 10/27/2024 8:23 AM EDT [facility] Base Excess, Arterial -4.2(L) -2.0 - 3.0 mmol/L 10/27/2024 8:23 AM EDT [facility] %HBO2, Arterial 96.5 95.0 - 98.0 % 10/27/2024 8:23 AM EDT [facility] Carboxyhemoglo bin, Arterial 2.2 % 10/27/2024 8:23 AM EDT [facility] Comment: CARBOXYHEMOGLOBIN (CO) REFERENCE RANGES: Non-Smokers: <2 % Smokers: <8 % TOXIC: >20 % Methemoglobin, Arterial 1.2 0.0 - 1.5 % 10/27/2024 8:23 AM EDT [facility] Reduced hemoglobin, Arterial 0.0 0.0 - 5.0 % 10/27/2024 8:23 AM EDT [facility] Blood, Arterial 10/27/2024 8 :00 AM EDT 10/27/2024 8:19 AM EDT Narrative [facility] - 10/27/2024 8:23 AM EDT Specimen is beyond 15 minutes from time of collection. Results may be compromised. Review results critically. us Kemar Sahni MD LAB BLOOD ORDERABLES Final Result [facility] [address] [place] [address], [facility] * (ABNORMAL) TEG-Bypass/ECMO/Liver HN (Factor function, Platelet/Fibrin Clot Strength w/Clot Breakdown, Heparinase In All Channels) (10/27/2024 8:00 AM EDT) Citrated Kaolin Reaction Time (TEGECMOLIVER) 7.8 4.6 - 9.1 minutes 10/27/2024 9:39 AM EDT [facility] Citrated Kaolin W/Heparinase Reaction Time (TEGECMOLIVER) 8.0 4.3 - 8.3 minutes 10/27/2024 9:39 AM EDT [facility] Citrated Kaolin Maximum Amplitude (TEGECMOLIVER) 52.7 52.0 - 69.0 mm 10/27/2024 9:39 AM EDT [facility] Citrated Functional Fibrinogen W/Heparinase Maximum Amplitude(TEGEC MOLIVER) 19.0 15.0 - 34.0 mm 10/27/2024 9:39 AM EDT [facility] Citrated Rapid Teg W/Heparinase Maximum Amplitude (TEGECMOLIVER) 49.5(L) 53.0 - 69.0 mm 10/27/2024 9:39 AM EDT [facility] Citrated Kaolin w/Heparinase Percent Lysis (TEGECMOLIVER) 0.0 0.0 - 3.2 % 10/27/2024 9:39 AM EDT [facility] Whole Blood (Citrate) 10/27/2024 8:00 AM EDT 10/27/2024 8:19 AM EDT Kemar Sahni MD LAB BLOOD ORDERABLES Final Result Performing Organization Address City/State/[facility] Co de Phone Number [facility] [address] [place] [address], [facility] * (ABNORMAL) Katie-Watkins virus VCA IgG Antibody (10/27/2024 8:00 AM EDT) EBV VCA IgG Positive( A) Negative 10/27/2024 11:30 AM EDT [facility] Comment:Presence of detectab le VCA IgG antibodies. 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 EBV IGG NUM 314.00(H) 0.00 - 17.99 U/mL 10/27/2024 11:30 AM EDT [facility] Serum 10/27/2024 8:00 AM EDT 10/27/2024 8:20 AM EDT Kemar Sahni MD LAB BLOOD ORDERABLES Final Result Performing Organization Address City/[facility]/ZIP Co de Phone Number [facility] [address] * Hemoglobin A1c (10/27/2024 8:00 AM EDT) Hemoglobin A1C 5.0 4.0 - 5.6 % 10/27/2024 11:12 AM EDT [facility] Comment: Hemoglobin A1c Interpretation [...] BLOOD ORDERABLES Final Result Performing Organization Address [facility] Co de Phone Number [facility] [address] [facility]. [address] * (ABNORMAL) POC Glucose Monitoring Device (10/27/2024 7:59 AM EDT) POC Glucose Monitoring Device 113(H) 70 - 100 mg/dL 10/27/2024 7:59 AM EDT [facility] Blood 10/27/2024 7:59 AM EDT 10/27/2024 7:59 AM EDT Semaj Mcnair III, MD POINT OF CARE TEST ORDERABLES Final Result Performing Organization Address City/[facility]/ZIP Co de Phone Number [facility] [address] [facility]. [address] * X-ray Abdomen AP view (10/27/2024 [...] Units (10/27/2024 6:16 AM EDT) Product Code K9808M30 HCLL Unit Number [id number] HCLL Dispense Status Presumed Transfused_PT HCLL Blood Expiration Date HCLL Coding System [id number] HCLL Product Code N1591N80 HCLL Unit Number [id number] HCLL Dispense Status Presumed Transfused_PT HCLL Blood Expiration Date [id number] HCLL Coding System VPAE963 HCLL Blood Bank Product John Pina MD BLOOD BANK PRODUCT ORDERABLES F inal Result Performing Organization Address City/[facility]/ZIP Co de Phone Number HCLL * Prepare Platelets, leukoreduced, 1 Units (10/27/2024 6:16 AM EDT) Product Code O6053R25 HCLL Unit Number [id number] HCLL Dispense Status Presumed Transfused_PT HCLL Blood Expiration Date 830599427580 HCLL Coding System HEFV559 HCLL Blood Bank Product Eber Quinones MD BLOOD BANK PRODUCT ORDER PAL Final Result HCLL * Prepare Cryoprecipitate, 1 Units (10/27/2024 6:16 AM EDT) Product Code U3914M81 HCLL Unit Number [id number] HCLL Dispense Status Presumed Transfused_PT HCLL Blood Expiration Date HCLL Coding System ARLY721 HCLL Product Code D3485J56 HCLL Unit Number [id number] HCLL Dispense Status Presumed Transfused_PT HCLL Blood Expiration Date HCLL Coding System EFPI162 HCLL Blood Bank Product Eber Quinones MD BLOOD BANK PRODUCT ORDER PAL Final Result HC[facility] * Prepare Fresh Frozen Plasma, 10 Units (10/27/2024 6:16 AM EDT) Product Code K8126F00 HCLL Unit Number [id number] HCLL Dispense Status Presumed Transfused_PT HCLL Blood Expiration Date HCLL Coding System IZUD953 HCLL Product Code J9624T79 HCLL Unit Number [id number] HCLL Dispense Status Presumed Transfused_PT HCLL Blood Expiration Date HCLL Coding System VZRC398 HCLL Product Code X8812P87 HCLL Unit Number [id number] HCLL Dispense Status Presumed Transfused_PT HCLL Blood Expiration Date HCLL Coding System AEWR994 HCLL Product Code B9743O04 HCLL Unit Number [id number] HCLL Dispense Status Presumed Transfused_PT HCLL Blood Expiration Date 823793722984 HCLL Coding System WBJE287 HCLL Product Code A5720D67 HCLL Unit Number [id number] HCLL Dispense Status Released from Crossmatch_RE HCLL Blood Expiration Date 697496206301 HCLL Coding System UQOP438 HCLL Product Code N1905G29 HCLL Unit Number [id number] HCLL Dispense Status Released from Crossmatch_RE HCLL Blood Expiration Date HCLL Coding System VKJX052 HCLL Product Code G4571L83 HCLL Unit Number [id number] HCLL Dispense Status Presumed Transfused_PT HCLL Blood Expiration Date HCLL Coding System OKNW270 HCLL Product Code H0941N79 HCLL Unit Number [id number] HCLL Dispense Status Presumed Transfused_PT HCLL Blood Expiration Date HCLL Coding System EPSA404 HCLL Product Code T9299N51 HCLL Unit Number [id number] HCLL Dispense Status Presumed Transfused_PT HCLL Blood Expiration Date 269898720911 HCLL Coding System TFND690 HCLL Product Code K2240A29 HCLL Unit Number [id number] HCLL Dispense Status Presumed Transfused_PT HCLL Blood Expiration Date HCLL Coding System PFZK625 HCLL Blood Bank Product Leandra Og MD BLOOD BANK PRODUCT ORD ERABLES Final Result HCLL * Prepare Platelets, leukoreduced, 1 Units (10/27/2024 6:16 AM EDT) Product Code P6083W39 HCLL Unit Number [id number] HCLL Dispense Status Presumed Transfused_PT HCLL Blood Expiration Date 734666602149 HCLL Coding System TJNN389 HCLL Blood Bank Product Ben Blake MD BLOOD BANK PRODUCT ORDERABLES Final Result HCLL * Prepare Fresh Frozen Plasma (10/27/2024 6:15 AM EDT) Product Code X8846K52 HCLL Unit Number [id number] HCLL Dispense Status Presumed Transfused_PT HCLL Blood Expiration Date HCLL Coding System REBR104 HCLL Product Code M0772M56 HCLL Unit Number [id number] HCLL Dispense Status Released from Crossmatch_RE HCLL Blood Expiration Date HCLL Coding System OOUP802 HCLL Product Code A2698E18 HCLL Unit Number [id number] HCLL Dispense Status Presumed Transfused_PT HCLL Blood Expiration Date HCLL Coding System IYYR992 HCLL Product Code C6958K18 HCLL Unit Number [id number] HCLL Dispense Status Presumed Transfused_PT HCLL Blood Expiration Date HCLL Coding System WIHB396 HCLL Product Code L5579V94 HCLL Unit Number [id number] HCLL Dispense Status Released from Crossmatch_RE HCLL Blood Expiration Date HCLL Coding System OYJT950 HCLL us Attending Provider Unknown BLOOD BANK PRODUCT OR DERABLES Final Result Performing Organization Address City/[facility]/ZIP Co de Phone Number HCLL * Prepare RBC, leukoreduced (10/27/2024 6:15 AM EDT) Product Code U4570S13 HCLL Unit Number [id number] HCLL Dispense Status Presumed Transfused_PT HCLL Blood Expiration Date HCLL Coding System WVBE662 HCLL Product Code Q5720E01 HCLL Unit Number [id number] HCLL Dispense Status Released from Crossmatch_RE HCLL Blood Expiration Date HCLL Coding System KJHN524 HCLL Product Code L2998P71 HCLL Unit Number [id number] HCLL Dispense Status Released from Crossmatch_RE HCLL Blood Expiration Date 905721745763 HCLL Coding System CKZP027 HCLL Product Code X8804I35 HCLL Unit Number [id number] HCLL Dispense Status Released from Crossmatch_RE HCLL Blood Expiration Date 904160170406 HCLL Coding System NVBB710 HCLL Product Code F6971G82 HCLL Unit Number [id number] HCLL Dispense Status Released from Crossmatch_RE HCLL Blood Expiration Date 356057447422 HCLL Coding System BBQB995 HCLL us Attending Provider Unknown BLOOD BANK PRODUCT OR DERABLES Final Result HCLL * Prepare RBC, leukoreduced, 10 Units (10/27/2024 6:15 AM EDT) Product Code I5895V67 HCLL Unit Number [id number] HCLL Dispense Status Presumed Transfused_PT HCLL Blood Expiration Date HCLL Coding System JJUE562 HCLL Product Code P5367M84 HCLL Unit Number [id number] HCLL Dispense Status Presumed Transfused_PT HCLL Blood Expiration Date HCLL Coding System HERD173 HCLL Product Code U4019I53 HCLL Unit Number [id number] HCLL Dispense Status Presumed Transfused_PT HCLL Blood Expiration Date HCLL Coding System HFQJ637 HCLL Product Code W7656Z99 HCLL Unit Number [id number] HCLL Dispense Status Presumed Transfused_PT HCLL Blood Expiration Date HCLL Coding System DWEE185 HCLL Product Code P9612P26 HCLL Unit Number [id number] HCLL Dispense Status Presumed Transfused_PT HCLL Blood Expiration Date HCLL Coding System WXPN868 HCLL Product Code S1703D39 HCLL Unit Number [id number] HCLL Dispense Status Presumed Transfused_PT HCLL Blood Expiration Date 314830173219 HCLL Coding System TJOF897 HCLL Product Code P1749Q27 HCLL Unit Number [id number] HCLL Dispense Status Presumed Transfused_PT HCLL Blood Expiration Date HCLL Coding System BPAK981 HCLL Product Code G1414P77 HCLL Unit Number [id number] HCLL Dispense Status Presumed Transfused_PT HCLL Blood Expiration Date HCLL Coding System OTTP490 HCLL Product Code N8260Z49 HCLL Unit Number [id number] HCLL Dispense Status Presumed Transfused_PT HCLL Blood Expiration Date HCLL Coding System QXWQ226 HCLL Product Code N6300H50 HCLL Unit Number [id number] HCLL Dispense Status Presumed Transfused_PT HCLL Blood Expiration Date 235243930349 HCLL Coding System IKOG408 HCLL Blood Bank Product Leandra Og MD BLOOD BANK PRODUCT ORD ERABLES Final Result HCLL * Transfuse Platelets (10/27/2024 6:09 AM EDT) Ben Blake MD NURSING TREATMENT ORDERABLES - BLOOD ADMIN Final Result * (ABNORMAL) Arterial Blood Gas Panel (10/27/2024 6:09 AM EDT) O2Sat (ABGP) 100 10/27/2024 6:17 AM EDT [facility] pH (ABGP) 7.30(L) 7.35 - 7.45 10/27/2024 6:17 AM EDT [facility] PCO2 (ABGP) 41 35 - 45 mm Hg 10/27/2024 6:17 AM EDT [facility] PO2 (ABGP) 192(H) 80 - 100 mm Hg 10/27/2024 6:17 AM EDT [facility] HCO3 (ABGP) 21(L) 22 - 26 mmol/L 10/27/2024 6:17 AM EDT [facility] CO2 Content (ABGP) 22(L) 23 - 27 mmol/L 10/27/2024 6:17 AM EDT [facility] Base Excess (ABGP) -5.7(L) -2.0 - 3.0 mmol/L 10/27/2024 6:17 AM EDT [facility] Sodium (ABGP) 138 136 - 146 mEq/L 10/27/2024 6:17 AM EDT [facility] Potassium (ABGP) 3.3(L) 3.5 - 5.0 mEq/L 10/27/2024 6:17 AM EDT [facility] Comment:In the event of in-v itro hemolysis, potassium results may be falsely elevated. Always interpret lab results in conjunction with clinical findings. If hemolysis is suspected, a serum sample may be collected for repeat assessment of potassium. Calcium, Free (ABGP) 5.28 4.50 - 5.30 mg/dL 10/27/2024 6:17 AM EDT [facility] Glucose (ABGP) 112(H) 70 - 100 mg/dL 10/27/2024 6:17 AM EDT [facility] Comment:There is interferenc e with whole blood glucose results on this method when Hematocrit is <25% or >60%. HCT (ABGP) 20.0(L) 40.0 - 52.0 % 10/27/2024 6:17 AM EDT [facility] HGB (ABGP) 6.5(L) 14.0 - 18.0 g/dL 10/27/2024 6:17 AM EDT [facility] %HBO2 (ABGP) 96.8 95.0 - 98.0 % 10/27/2024 6:17 AM EDT [facility] Carboxyhgb (ABGP) 2.1 % 025 6:17 AM EDT [facility] Comment: CARBOXYHEMOGLOBIN (CO) REFERENCE RANGES: Non-Smokers: <2 % Smokers: <8 % TOXIC: >20 % Methemoglobin (ABGP) 1.0 0.0 - 1.5 % 10/27/2024 6:17 AM EDT [facility] Reduced Hemoglobin (ABGP) 0.2 0.0 - 5.0 % 10/27/2024 6:17 AM EDT [facility] Lactic Acid (ABGP) 0.4(L) 0.5 - 1.6 mmol/L 10/27/2024 6:17 AM EDT [facility] Blood, Arterial 10/27/2024 6 :09 AM EDT 10/27/2024 6:14 AM EDT Ben Blake MD LAB BLOOD ORDERABLES Final Re sult [facility] [address] [place], [place] [address] * Transfuse Fresh Frozen Plasma (10/27/2024 5:49 AM EDT) Ben Blake MD NURSING TREATMENT ORDERABLES - BLOOD ADMIN Final Result * Transfuse Cryoprecipitate (10/27/2024 4:56 AM EDT) Result [facility] Ben Blake MD NURSING TREATMENT ORDERABLES - BLOOD ADMIN Final Result * Transfuse Cryoprecipitate (10/27/2024 4:49 AM EDT) Ben Blake MD NURSING TREATMENT ORDERABLES - BLOOD ADMIN Final Result * (ABNORMAL) POC Glucose Monitoring Device (10/27/2024 4:46 AM EDT) POC Glucose Monitoring Device 124(H) 70 - 100 mg/dL 10/27/2024 4:47 AM EDT [facility] Blood 10/27/2024 4:46 AM EDT 10/27/2024 4:47 AM EDT Result [facility] Semaj Mcnair III, MD POINT OF CARE TEST ORDERABLES Final Result Performing Organization Address City/State/[facility] Co de Phone Number [facility] [address] * Transfuse Platelets (10/27/2024 4:24 AM EDT) Result [facility] Ben Blake MD NURSING TREATMENT ORDERABLES - BLOOD ADMIN Final Result * Transfuse Fresh Frozen Plasma (10/27/2024 4:07 AM EDT) Result [facility] Ben Blake MD NURSING TREATMENT ORDERABLES - BLOOD ADMIN Final Result * Transfuse RBC (10/27/2024 3:52 AM EDT) Result [facility] Ben Blake MD NURSING TREATMENT ORDERABLES - BLOOD ADMIN Final Result * (ABNORMAL) Arterial Blood Gas Panel (10/27/2024 3:07 AM EDT) O2Sat (ABGP) 100 10/27/2024 3:21 AM EDT [facility] pH (ABGP) 7.32(L) 7.35 - 7.45 10/27/2024 3:21 AM EDT [facility] PCO2 (ABGP) 38 35 - 45 mm Hg 10/27/2024 3:21 AM EDT [facility] PO2 (ABGP) 176(H) 80 - 100 mm Hg 10/27/2024 3:21 AM EDT [facility] HCO3 (ABGP) 20(L) 22 - 26 mmol/L 10/27/2024 3:21 AM T [facility] CO2 Content (ABGP) 21(L) 23 - 27 mmol/L 10/27/2024 3:21 AM T [facility] Base Excess (ABGP) -6.0(L) -2.0 - 3.0 mmol/L 10/27/2024 3:21 AM T [facility] Sodium (ABGP) 138 136 - [...] 95.0 - 98.0 % 10/27/2024 3:21 AM [facility] Carboxyhgb (ABGP) 1.9 % 025 3:21 AM [facility] Comment: CARBOXYHEMOGLOBIN (CO) REFERENCE RANGES: Non-Smokers: <2 % Smokers: <8 % TOXIC: >20 % Methemoglobin (ABGP) 0.8 0.0 - 1.5 % 10/27/2024 3:21 AM [facility] Reduced Hemoglobin (ABGP) 0.0 0.0 - 5.0 % 10/27/2024 3:21 AM EDT [facility] Lactic Acid (ABGP) 0.3(L) 0.5 - 1.6 mmol/L 10/27/2024 3:21 AM EDT [facility] Blood, Arterial 10/27/2024 3 :07 AM EDT 10/27/2024 3:14 AM EDT us Ben Blake MD LAB BLOOD ORDERABLES Final Re sult [facility] [address] [place] [id number], [facility] * Surgical Pathology Exam (10/27/2024 2:38 AM EDT) Tissue LEFT KIDNEY STRUCTURE / Unknown 10/27/2024 2:38 AM EDT Narrative [facility] - 10/27/2024 12:00 AM EDT CASE: [id number] PATIENT: BLAIR GILBERT Clinical History: Transplant kidney with bile duct reconstruction Pre-Operative Diagnosis: Acute kidney injury superimposed on CKD Post-Operative Diagnosis: None Given Specimen(s) Submitted: A. baseline renal biopsy ; B. right lobe liver biopsy; C. left lobe liver biopsy CPT Code(s): 74111 X 1; 23213 X 2; 40652 X 4 Additional Information: FINAL DIAGNOSIS: A. [...] Pathologist signing this report is located at [facility], [address] [place] [address], [facility] [phone], CLIA ID: [id number] ADDENDUM: A. Kidney, allograft, baseline, wedge biopsy: [...] Pathologist signing this report is located at [facility], [address] [place] [address], [place], [place], [facility], , CLIA ID: [id number] us Kemar Sahni MD PATHOLOGY/CYTOLOGY ORDERABL ES Edited Result - Final [facility] * Anaerobic culture (10/27/2024 2:15 AM EDT) Culture Result No Anaerobes Isolated in 5 Days [facility] Fluid SPECIMEN FROM KIDNEY / Unknown 10/27/2024 2:15 AM EDT 10/27/2024 4:24 AM EDT Narrative [facility] - 10/31/2024 11:43 AM EDT 1) perfusate Semaj Mcnair III, MD MICROBIOLOGY - GENE RAL ORDERABLES Final Result Performing Organization Address [facility] Co de Phone Number [facility] [address] [place] [address] * Routine Culture plus Stain (10/27/2024 2:15 AM EDT) Gram Stain Result No Polymorphonuclear Leukocytes Seen [facility] Gram Stain Result No Organisms Seen; [facility] Culture Result No Growth After 3 Days [facility] Fluid SPECIMEN FROM KIDNEY / Unknown 10/27/2024 2:15 AM EDT 10/27/2024 4:24 AM EDT Narrative [facility] - 10/30/2024 9:26 AM EDT 1) perfusate Semaj Mcnair III, MD MICROBIOLOGY - GENE RAL ORDERABLES Final Result Performing Organization Address [facility] Co de Phone Number [facility] [address] [place] [address] * Transfuse Platelets Transfusion Rate: Per dept [...] a Baseline TEG) (10/27/2024 1:51 AM EDT) [facility] Citrated Kaolin Reaction Time (TEGHEPARINASE) 10.6(H) 4.6 - 9.1 minutes 10/27/2024 2:44 AM EDT [facility] Citrated Rapid Teg Maximum Amplitude (TEGHEPARINASE) 42.3(L) 52.0 - 70.0 mm 10/27/2024 2:44 AM EDT [facility] Citrated Functional Fibrinogen Maximum Amplitude (TEGHEPARINASE) 15.0 15.0 - 32.0 mm 10/27/2024 2:44 AM EDT [facility] Citrated Kaolin W/Heparinase Reaction Time (TEGHEPARINASE) 10.5(H) 4.3 - 8.3 minutes 10/27/2024 2:44 AM EDT [facility] Citrated Kaolin K-Time (TEGHEPARINASE) 2.9(A) 0.8 - 2.1 minutes 10/27/2024 2:44 AM EDT [facility] Citrated Kaolin Angle (TEGHEPARINASE) 60.4(A) 63.0 - 78.0 degrees 10/27/2024 2:44 AM EDT [facility] Citrated Kaolin Maximum Amplitude (TEGHEPARINASE) 42.9(L) 52.0 - 69.0 mm 10/27/2024 2:44 AM EDT [facility] Citrated Functional Fibrinogen- Fibrinogen Level (TEGHEPARINASE) 273.7(L) 278.0 - 581.0 mg/dL 10/27/2024 2:44 AM EDT [facility] Whole Blood (Citrate) 10/27/2024 1:51 AM EDT 10/27/2024 2:03 AM EDT us John Pina MD LAB BLOOD ORDERABLES Final Resu lt Performing Organization Address City/[facility] Co de Phone Number [facility] [address] * (ABNORMAL) POC Glucose Monitoring Device (10/27/2024 1:50 AM EDT) POC Glucose Monitoring Device 121(H) 70 - 100 mg/dL 10/27/2024 1:51 AM EDT [facility] Blood 10/27/2024 1:50 AM EDT 10/27/2024 1:51 AM EDT us Semaj Mcnair III, MD POINT OF CARE TEST ORDERABLES Final Result Performing Organization Address [facility] Co de Phone Number [facility] [address] * Transfuse Cryoprecipitate Transfusion Rate: Per dept routine (10/27/2024 1:25 AM EDT) us John Pina MD NURSING TREATMENT ORDERABLES - BLOOD ADMIN Final Result Performing Organization Address [facility] Co de Phone Number EXTERNAL * Transfuse Cryoprecipitate Transfusion Rate: Per dept routine, 1 Units (10/27/2024 1:25 AM EDT) us John Pnia MD NURSING TREATMENT ORDERABLES - BLOOD ADMIN Final Result Performing Organization Address City/[facility] Co de Phone Number EXTERNAL * (ABNORMAL) POC Glucose Monitoring Device (10/27/2024 1:21 AM EDT) POC Glucose Monitoring Device 123(H) 70 - 100 mg/dL 10/27/2024 1:22 AM EDT [facility] Blood 10/27/2024 1:21 AM EDT 10/27/2024 1:21 AM EDT us Semaj Mcnair III, MD POINT OF CARE TEST ORDERABLES Final Result [facility] [address] [facility]. [address] * Transfuse Fresh Frozen Plasma Transfusion Rate: Per dept routine (10/27/2024 1:03 AM EDT) us John Pina MD NURSING TREATMENT ORDERABLES - BLOOD ADMIN Final Result Performing Organization Address [facility] de Phone Number EXTERNAL * Transfuse Fresh Frozen Plasma Transfusion Rate: Per dept routine, 1 Units (10/27/2024 1:03 AM EDT) us John Pina MD NURSING TREATMENT ORDERABLES - BLOOD ADMIN Final Result Performing Organization Address [facility] de Phone Number EXTERNAL * Calcium Free, Serum (10/27/2024 12:13 AM EDT) Free Calcium, Ser 5.20 4.40 - 5.40 mg/dL 10/27/2024 12:37 AM EDT [facility] Comment:Free calcium levels vary inversely with pH by approximately 5% for each 0.1 unit of pH change. Assay results have been normalized to pH = 7.40. Serum 10/27/2024 12:1 3 AM EDT 10/27/2024 12:29 AM EDT Narrative [facility] - 10/27/2024 12:37 AM EDT This test has been developed and its performance characteristics determined by [facility] which is certified under [...] ORDERABLES Final Resu lt Performing Organization Address [facility] Co de Phone Number [facility] [address] [facility]. [address] * (ABNORMAL) Blood Gas, Arterial, STAT (10/27/2024 12:13 AM EDT) O2 Sat, Arterial 100 10/27/2024 12:23 AM EDT [facility] FIO2 30 10/27/2024 12:23 AM EDT [facility] pH, Arterial 7.32(L) 7.35 - 7.45 10/27/2024 12:23 AM EDT [facility] pCO2, Arterial 37 35 - 45 mm Hg 10/27/2024 12:23 AM EDT [facility] pO2, Arterial 137(H) 80 - 100 mm Hg 10/27/2024 12:23 AM EDT [facility] HCO3, Arterial 20(L) 22 - 26 mmol/L 10/27/2024 12:23 AM EDT [facility] CO2 Content,Arteri al 20(L) 23 - 27 mmol/L 10/27/2024 12:23 AM EDT [facility] Base Excess, Arterial -6.4(L) -2.0 - 3.0 mmol/L 10/27/2024 12:23 AM EDT [facility] %HBO2, Arterial 96.2 95.0 - 98.0 % 10/27/2024 12:23 AM EDT [facility] Carboxyhemoglo bin, Arterial 1.9 % 10/27/2024 12:23 AM EDT [facility] Comment: CARBOXYHEMOGLOBIN (CO) REFERENCE RANGES: Non-Smokers: <2 % Smokers: <8 % TOXIC: >20 % Methemoglobin, Arterial 1.5 0.0 - 1.5 % 10/27/2024 12:23 AM EDT [facility] Reduced hemoglobin, Arterial 0.4 0.0 - 5.0 % 10/27/2024 12:23 AM EDT [facility] Blood, Arterial 10/27/2024 1 2:13 AM EDT 10/27/2024 12:18 AM EDT us John Pina MD LAB BLOOD ORDERABLES Final Resu lt [facility] [address] [place], [place] [address] * (ABNORMAL) TEG-Bypass/ECMO/Liver HN (Factor function, Platelet/Fibrin Clot Strength w/Clot Breakdown, Heparinase In All Channels) (10/27/2024 12:13 AM EDT) Citrated Kaolin Reaction Time (TEGECMOLIVER) 9.1 4.6 - 9.1 minutes 10/27/2024 1:43 AM EDT [facility] Citrated Kaolin W/Heparinase Reaction Time (TEGECMOLIVER) 9.7(H) 4.3 - 8.3 minutes 10/27/2024 1:43 AM EDT [facility] Citrated Kaolin Maximum Amplitude (TEGECMOLIVER) <40.0(L) 52.0 - 69.0 mm 10/27/2024 1:43 AM EDT [facility] Citrated Functional Fibrinogen W/Heparinase Maximum Amplitude(TEGEC MOLIVER) 11.9(L) 15.0 - 34.0 mm 10/27/2024 1:43 AM EDT [facility] Citrated Rapid Teg W/Heparinase Maximum Amplitude (TEGECMOLIVER) 31.6(L) 53.0 - 69.0 mm 10/27/2024 1:43 AM EDT [facility] Citrated Kaolin w/Heparinase Percent Lysis (TEGECMOLIVER) 0.0 0.0 - 3.2 % 10/27/2024 1:43 AM EDT [facility] Whole Blood (Citrate) 10/27/2024 12:13 AM EDT 10/27/2024 12:18 AM EDT Kemar Sahni MD LAB BLOOD ORDERABLES Final Result Performing Organization Address [facility] Co de Phone Number [facility] [address] * (ABNORMAL) Lactic Acid (10/27/2024 12:13 AM EDT) Lactate 0.2(L) 0.5 - 2.2 mmol/L 10/27/2024 12:59 AM EDT [facility] Plasma 10/27/2024 12:1 3 AM EDT 10/27/2024 12:31 AM EDT Kemar Sahni MD LAB BLOOD ORDERABLES Final Result [facility] [address] [facility]. [address] * Magnesium (10/27/2024 12:13 AM EDT) Magnesium 1.8 1.5 - 2.5 mg/dL 10/27/2024 12:52 AM EDT [facility] Plasma 10/27/2024 12:1 3 AM EDT 10/27/2024 12:29 AM EDT Kemar Sahni MD LAB BLOOD ORDERABLES Final Result Performing Organization Address City/[facility]/ZIP Co de Phone Number [facility] [address] [facility]. [address] * (ABNORMAL) Hepatic Function Panel (10/27/2024 12:13 AM EDT) Total Bilirubin 1.6(H) 0.0 - 1.5 mg/dL 10/27/2024 12:52 AM EDT [facility] Bilirubin, Direct 1.17(H) 0.00 - 0.40 mg/dL 10/27/2024 12:52 AM EDT [facility] AST 157(H) 13 - 39 U/L 10/27/2024 12:52 AM EDT [facility] ALT 261(H) 7 - 52 U/L 10/27/2024 12:52 AM EDT [facility] Alkaline Phosphatase 26(L) 36 - 125 U/L 10/27/2024 12:52 AM EDT [facility] Total Protein 3.8(L) 6.4 - 8.9 g/dL 10/27/2024 12:52 AM EDT [facility] Albumin 2.8(L) 3.5 - 5.7 g/dL 10/27/2024 12:52 AM EDT [facility] Bilirubin, Indirect 0.43 0.00 - 1.10 mg/dL 10/27/2024 12:52 AM EDT [facility] Plasma 10/27/2024 12:1 3 AM EDT 10/27/2024 12:29 AM EDT Kemar Sahni MD LAB BLOOD ORDERABLES Final Result Performing Organization Address [facility] Co de Phone Number [facility] [address] * (ABNORMAL) Protime-INR (10/27/2024 12:13 AM EDT) Protime 18.6(H) 12.1 - 15.1 seconds 10/27/2024 12:43 AM EDT [facility] INR 1.5(H) 0.9 - 1.1 10/27/2024 12:43 AM EDT [facility] Comment: RECOMMENDED THERAPEUTIC RANGES USING INR : Stable oral anticoagulant therapy: 2.0 - 3.0 Mechanical prosthetic heart valve: 2.5 - 3.5 Recurrent acute myocardial infarction: 2.5 - 3.5 Plasma 10/27/2024 12:1 3 AM EDT 10/27/2024 12:29 AM EDT Kemar Sahni MD LAB BLOOD ORDERABLES Final Result Performing Organization Address [facility] Co de Phone Number [facility] [address] [facility]. [address] * (ABNORMAL) CBC (10/27/2024 12:13 AM EDT) WBC 5.0 3.8 - 10.8 10E3/uL 10/27/2024 12:59 AM EDT [facility] RBC 2.70(L) 4.20 - 5.80 10E6/uL 10/27/2024 12:59 AM EDT [facility] Hemoglobin 8.5(L) 13.2 - 17.1 g/dL 10/27/2024 12:59 AM EDT [facility] Hematocrit 23.9(L) 38.5 - 50.0 % 10/27/2024 12:59 AM EDT [facility] MCV 88.5 80.0 - 100.0 fL 10/27/2024 12:59 AM EDT [facility] MCH 31.5 27.0 - 33.0 pg 10/27/2024 12:59 AM EDT [facility] MCHC 35.6 32.0 - 36.0 g/dL 10/27/2024 12:59 AM EDT [facility] RDW 20.6(H) 11.0 - 15.0 % 10/27/2024 12:59 AM EDT [facility] Platelets 35(L) 140 - 400 10E3/uL 10/27/2024 12:59 AM EDT [facility] Comment: CNV Specimen checked for clots. None detected. MPV 7.6 7.5 - 11.5 fL 10/27/2024 12:59 AM EDT [facility] Whole Blood 10/27/2024 12:1 3 AM EDT 10/27/2024 12:29 AM EDT us Kemar Sahni MD LAB BLOOD ORDERABLES Final Result Performing Organization Address City/State/[facility] Co de Phone Number [facility] [address] * (ABNORMAL) Renal Function Panel w/EGFR (10/27/2024 12:13 AM EDT) Sodium 141 133 - 146 mmol/L 10/27/2024 12:52 AM EDT [facility] Potassium 3.2(L) 3.5 - 5.3 mmol/L 10/27/2024 12:52 AM EDT [facility] Chloride 109 98 - 110 mmol/L 10/27/2024 12:52 AM EDT [facility] CO2 21 21 - 33 mmol/L 10/27/2024 12:52 AM EDT [facility] Anion Gap 11 3 - 16 mmol/L 10/27/2024 12:52 AM EDT [facility] BUN 64(H) 7 - 25 mg/dL 10/27/2024 12:52 AM EDT [facility] Creatinine 2.58(H) 0.60 - 1.30 mg/dL 10/27/2024 12:52 AM EDT [facility] Glucose 126(H) 70 - 100 mg/dL 10/27/2024 12:52 AM EDT [facility] Calcium 8.9 8.6 - 10.3 mg/dL 10/27/2024 12:52 AM EDT [facility] Phosphorus 5.3(H) 2.1 - 4.7 mg/dL 10/27/2024 12:52 AM EDT [facility] Albumin 2.8(L) 3.5 - 5.7 g/dL 10/27/2024 12:52 AM EDT [facility] Osmolality, Calculated 312(H) 278 - 305 mOsm/kg 10/27/2024 12:52 AM EDT [facility] EGFR 31 10/27/2024 12:52 AM EDT [facility] Comment:As of 2021, the [...] Sahni MD LAB BLOOD ORDERABLES Final Result [facility] [address] [place] [address], [facility] * (ABNORMAL) POC Glucose Monitoring Device (10/27/2024 12:08 AM EDT) POC Glucose Monitoring Device 121(H) 70 - 100 mg/dL 10/27/2024 12:08 AM EDT [facility] Blood 10/27/2024 12:0 8 AM EDT 10/27/2024 12:08 AM EDT Semaj Mcnair III, MD POINT OF CARE TEST ORDERABLES Final Result [facility] [address] [facility]. [address] * (ABNORMAL) POC Glucose Monitoring Device (10/26/2024 11:15 PM EDT) [facility] POC Glucose Monitoring Device 120(H) 70 - 100 mg/dL 10/26/2024 11:15 PM EDT [facility] Blood 10/26/2024 11:1 5 PM EDT 10/26/2024 11:15 PM EDT Semaj Mcnair III, MD POINT OF CARE TEST ORDERABLES Final Result Performing Organization Address [facility] Co de Phone Number [facility] [address] [facility]. [address] * (ABNORMAL) TEG-Bypass/ECMO/Liver HN (Factor function, Platelet/Fibrin Clot Strength w/Clot Breakdown, Heparinase In All Channels) (10/26/2024 10:36 PM EDT) Citrated Kaolin Reaction Time (TEGECMOLIVER) 10.0(H) 4.6 - 9.1 minutes 10/26/2024 11:53 PM EDT [facility] Citrated Kaolin W/Heparinase Reaction Time (TEGECMOLIVER) 10.2(H) 4.3 - 8.3 minutes 10/26/2024 11:53 PM EDT [facility] Citrated Kaolin Maximum Amplitude (TEGECMOLIVER) <40.0(L) 52.0 - 69.0 mm 10/26/2024 11:53 PM EDT [facility] Citrated Functional Fibrinogen W/Heparinase Maximum Amplitude(TEGEC MOLIVER) 11.3(L) 15.0 - 34.0 mm 10/26/2024 11:53 PM EDT [facility] Citrated Rapid Teg W/Heparinase Maximum Amplitude (TEGECMOLIVER) 41.8(L) 53.0 - 69.0 mm 10/26/2024 11:53 PM EDT [facility] Citrated Kaolin w/Heparinase Percent Lysis (TEGECMOLIVER) 0.0 0.0 - 3.2 % 10/26/2024 11:53 PM EDT [facility] Whole Blood (Citrate) 10/26/2024 10:36 PM EDT 10/26/2024 10:43 PM EDT Kemar Sahni MD LAB BLOOD ORDERABLES Final Result [facility] [address] [facility]. [address] * (ABNORMAL) POC Glucose Monitoring Device (10/26/2024 10:14 PM EDT) POC Glucose Monitoring Device 124(H) 70 - 100 mg/dL 10/26/2024 11:11 PM EDT [facility] Blood 10/26/2024 10:1 4 PM EDT 10/26/2024 11:11 PM EDT Semaj Mcnair III, MD POINT OF CARE TEST ORDERABLES Final Result Performing Organization Address [facility] Co de Phone Number [facility] [address] [place] [address]. [address] * (ABNORMAL) POC Glucose Monitoring Device (10/26/2024 9:16 PM EDT) POC Glucose Monitoring Device 119(H) 70 - 100 mg/dL 10/26/2024 9:18 PM EDT [facility] Blood 10/26/2024 9:16 PM EDT 10/26/2024 9:18 PM EDT Semaj Mcnair III, MD POINT OF CARE TEST ORDERABLES Final Result Performing Organization Address City/[facility]/ZIP Co de Phone Number [facility] [address] [facility]. [address] * (ABNORMAL) POC Glucose Monitoring Device (10/26/2024 8:05 PM EDT) POC Glucose Monitoring Device 113(H) 70 - 100 mg/dL 10/26/2024 8:06 PM EDT [facility] Blood 10/26/2024 8:05 PM EDT 10/26/2024 8:06 PM EDT Semaj Mcnair III, MD POINT OF CARE TEST ORDERABLES Final Result Performing Organization Address City/[facility] Co de Phone Number [facility] [address] [facility]. [address] * (ABNORMAL) POC Glucose Monitoring Device (10/26/2024 7:02 PM EDT) POC Glucose Monitoring Device 111(H) 70 - 100 mg/dL 10/26/2024 7:03 PM EDT [facility] Blood 10/26/2024 7:02 PM EDT 10/26/2024 7:03 PM EDT Semaj Mcnair III, MD POINT OF CARE TEST ORDERABLES Final Result Performing Organization Address [facility] Co de Phone Number [facility] [address] * Transfuse Cryoprecipitate Transfusion Rate: Per dept routine (10/26/2024 6:39 PM EDT) John Pina MD NURSING TREATMENT ORDERABLES - BLOOD ADMIN Final Result Performing Organization Address City/[facility] Co de Phone Number EXTERNAL * Transfuse Cryoprecipitate Transfusion Rate: Per dept routine, 1 Units (10/26/2024 6:39 PM EDT) us John Pina MD NURSING TREATMENT ORDERABLES - BLOOD ADMIN Final Result Performing Organization Address [facility] Co de Phone Number EXTERNAL * (ABNORMAL) POC Glucose Monitoring Device (10/26/2024 6:33 PM EDT) POC Glucose Monitoring Device 110(H) 70 - 100 mg/dL 10/26/2024 6:34 PM EDT [facility] Blood 10/26/2024 6:33 PM EDT 10/26/2024 6:34 PM EDT us Semaj Mcnair III, MD POINT OF CARE TEST ORDERABLES Final Result Performing Organization Address [facility] Co de Phone Number [facility] [address] [facility]. [address] * Transfuse Cryoprecipitate Transfusion Rate: Per dept routine (10/26/2024 6:22 PM EDT) us John Pina MD NURSING TREATMENT ORDERABLES - BLOOD ADMIN Final Result Performing Organization Address [facility] Co de Phone Number EXTERNAL * Transfuse Cryoprecipitate Transfusion Rate: Per dept routine, 1 Units (10/26/2024 6:22 PM EDT) us John Pina MD NURSING TREATMENT ORDERABLES - BLOOD ADMIN Final Result Performing Organization Address City/[facility] Co de Phone Number EXTERNAL * (ABNORMAL) POC Glucose Monitoring Device (10/26/2024 6:17 PM EDT) POC Glucose Monitoring Device 104(H) 70 - 100 mg/dL 10/26/2024 6:18 PM EDT [facility] Blood 10/26/2024 6:17 PM EDT 10/26/2024 6:18 PM EDT us Semaj Mcnair III, MD POINT OF CARE TEST ORDERABLES Final Result Performing Organization Address [facility] Co de Phone Number [facility] [address] [facility]. [address] * (ABNORMAL) POC Glucose Monitoring Device (10/26/2024 4:58 PM EDT) POC Glucose Monitoring Device 115(H) 70 - 100 mg/dL 10/26/2024 4:59 PM EDT [facility] Blood 10/26/2024 4:58 PM EDT 10/26/2024 4:58 PM EDT Semaj Mcnair III, MD POINT OF CARE TEST ORDERABLES Final Result Performing Organization Address [facility] Co de Phone Number [facility] [address] [place] [address] * (ABNORMAL) Calcium Free, Serum (10/26/2024 4:42 PM EDT) Free Calcium, Ser 5.67(H) 4.40 - 5.40 mg/dL 10/26/2024 4:55 PM EDT [facility] Comment:Free calcium levels vary inversely with pH by approximately 5% for each 0.1 unit of pH change. Assay results have been normalized to pH = 7.40. Serum 10/26/2024 4:42 PM EDT 10/26/2024 4:47 PM EDT Narrative [facility] - 10/26/2024 4:55 PM EDT This test has been developed and its performance characteristics determined by [facility] which is certified under [...] ORDERABLES Final Resu lt Performing Organization Address [facility] Co de Phone Number [facility] [address] [place] [address] * Repeat Crossmatch (Recipient Sample) (10/26/2024 4:42 PM EDT) Repeat Cx - Recipient The request and specimen(s) for this test have been received and transported to the [facility] at [address] [place] [address]. The [facility] will report results directly to the client. 10/26/2024 4:49 PM EDT [facility] Whole Blood 10/26/2024 4:42 PM EDT 10/26/2024 4:49 PM EDT Narrative [facility]ALTH [facility] - 10/26/2024 4:49 PM EDT To be sent to [facility] for Donor UNOS#[id number] cross match with Blairjohn Gilbert Sveta Judge MD LAB BLOOD ORDERABLES Final Resu lt [facility] [address] * (ABNORMAL) Lactic Acid (10/26/2024 4:42 PM EDT) Lactate 0.3(L) 0.5 - 2.2 mmol/L 10/26/2024 5:19 PM EDT [facility] Plasma 10/26/2024 4:42 PM EDT 10/26/2024 4:47 PM EDT Kemar Sahni MD LAB BLOOD ORDERABLES Final Result [facility] [address] * Magnesium (10/26/2024 4:42 PM EDT) Magnesium 2.0 1.5 - 2.5 mg/dL 10/26/2024 5:24 PM EDT [facility] Plasma 10/26/2024 4:42 PM EDT 10/26/2024 4:47 PM EDT Kemar Sahni MD LAB BLOOD ORDERABLES Final Result [facility] [address] [facility] [address] * (ABNORMAL) Hepatic Function Panel (10/26/2024 4:42 PM EDT) Total Bilirubin 2.3(H) 0.0 - 1.5 mg/dL 10/26/2024 5:24 PM EDT [facility] Bilirubin, Direct 1.85(H) 0.00 - 0.40 mg/dL 10/26/2024 5:24 PM EDT [facility] AST 374(H) 13 - 39 U/L 10/26/2024 5:24 PM EDT [facility] ALT 458(H) 7 - 52 U/L 10/26/2024 5:24 PM EDT [facility] Alkaline Phosphatase 39 36 - 125 U/L 10/26/2024 5:24 PM EDT [facility] Total Protein 3.8(L) 6.4 - 8.9 g/dL 10/26/2024 5:24 PM EDT [facility] Albumin 3.0(L) 3.5 - 5.7 g/dL 10/26/2024 5:24 PM EDT [facility] Bilirubin, Indirect 0.45 0.00 - 1.10 mg/dL 10/26/2024 5:24 PM EDT [facility] Plasma 10/26/2024 4:42 PM EDT 10/26/2024 4:47 PM EDT Kemar Sahni MD LAB BLOOD ORDERABLES Final Result [facility] [address] * (ABNORMAL) Protime-INR (10/26/2024 4:42 PM EDT) Protime 20.3(H) 12.1 - 15.1 seconds 10/26/2024 5:12 PM EDT [facility] INR 1.7(H) 0.9 - 1.1 10/26/2024 5:12 PM EDT [facility] Comment: RECOMMENDED THERAPEUTIC RANGES USING INR : Stable oral anticoagulant therapy: 2.0 - 3.0 Mechanical prosthetic heart valve: 2.5 - 3.5 Recurrent acute myocardial infarction: 2.5 - 3.5 Plasma 10/26/2024 4:42 PM EDT 10/26/2024 4:47 PM EDT Kemar Sahni MD LAB BLOOD ORDERABLES Final Result [facility] [address] * (ABNORMAL) CBC (10/26/2024 4:42 PM EDT) WBC 10.0 3.8 - 10.8 10E3/uL 10/26/2024 5:00 PM EDT [facility] RBC 3.44(L) 4.20 - 5.80 10E6/uL 10/26/2024 5:00 PM EDT [facility] Hemoglobin 10.5(L) 13.2 - 17.1 g/dL 10/26/2024 5:00 PM EDT [facility] Hematocrit 30.2(L) 38.5 - 50.0 % 10/26/2024 5:00 PM EDT [facility] MCV 87.7 80.0 - 100.0 fL 10/26/2024 5:00 PM EDT [facility] MCH 30.6 27.0 - 33.0 pg 10/26/2024 5:00 PM EDT [facility] MCHC 34.8 32.0 - 36.0 g/dL 10/26/2024 5:00 PM EDT [facility] RDW 20.1(H) 11.0 - 15.0 % 10/26/2024 5:00 PM EDT [facility] Platelets 48(L) 140 - 400 10E3/uL 10/26/2024 5:00 PM EDT [facility] Comment:Specimen checked for clots. None detected. MPV 7.9 7.5 - 11.5 fL 10/26/2024 5:00 PM EDT [facility] Whole Blood 10/26/2024 4:42 PM EDT 10/26/2024 4:47 PM EDT Kemar Sahni MD LAB BLOOD ORDERABLES Final Result [facility] [address] * (ABNORMAL) Renal Function Panel w/EGFR (10/26/2024 4:42 PM EDT) Sodium 142 133 - 146 mmol/L 10/26/2024 5:24 PM EDT [facility] Potassium 3.3(L) 3.5 - 5.3 mmol/L 10/26/2024 5:24 PM EDT [facility] Chloride 109 98 - 110 mmol/L 10/26/2024 5:24 PM EDT [facility] CO2 23 21 - 33 mmol/L 10/26/2024 5:24 PM EDT [facility] Anion Gap 10 3 - 16 mmol/L 10/26/2024 5:24 PM EDT [facility] BUN 63(H) 7 - 25 mg/dL 10/26/2024 5:24 PM EDT [facility] Creatinine 2.85(H) 0.60 - 1.30 mg/dL 10/26/2024 5:24 PM EDT [facility] Glucose 127(H) 70 - 100 mg/dL 10/26/2024 5:24 PM EDT [facility] Calcium 8.9 8.6 - 10.3 mg/dL 10/26/2024 5:24 PM EDT [facility] Phosphorus 4.4 2.1 - 4.7 mg/dL 10/26/2024 5:24 PM EDT [facility] Albumin 3.0(L) 3.5 - 5.7 g/dL 10/26/2024 5:24 PM EDT [facility] Osmolality, Calculated 314(H) 278 - 305 mOsm/kg 10/26/2024 5:24 PM EDT [facility] EGFR 28 10/26/2024 5:24 PM EDT [facility] Comment:As of 2021, the [...] BLOOD ORDERABLES Final Result Performing Organization Address City/[facility]/ZIP Co de Phone Number [facility] [address] [facility]. [address] * (ABNORMAL) POC Glucose Monitoring Device (10/26/2024 3:54 PM EDT) POC Glucose Monitoring Device 126(H) 70 - 100 mg/dL 10/26/2024 3:55 PM EDT [facility] Blood 10/26/2024 3:54 PM EDT 10/26/2024 3:55 PM EDT Semaj Mcnair III, MD POINT OF CARE TEST ORDERABLES Final Result Performing Organization Address [facility] Co de Phone Number [facility] [address] [place] [address]. [address] * (ABNORMAL) POC Glucose Monitoring Device (10/26/2024 3:06 PM EDT) POC Glucose Monitoring Device 144(H) 70 - 100 mg/dL 10/26/2024 3:14 PM EDT [facility] Blood 10/26/2024 3:06 PM EDT 10/26/2024 3:13 PM EDT Semaj Mcnair III, MD POINT OF CARE TEST ORDERABLES Final Result Performing Organization Address [facility] Co de Phone Number [facility] [address] [facility]. [address] * (ABNORMAL) TEG-Bypass/ECMO/Liver HN (Factor function, Platelet/Fibrin Clot Strength w/Clot Breakdown, Heparinase In All Channels) (10/26/2024 3:03 PM EDT) Citrated Kaolin Reaction Time (TEGECMOLIVER) 8.2 4.6 - 9.1 minutes 10/26/2024 4:43 PM EDT [facility] Citrated Kaolin W/Heparinase Reaction Time (TEGECMOLIVER) 8.2 4.3 - 8.3 minutes 10/26/2024 4:43 PM EDT [facility] Citrated Kaolin Maximum Amplitude (TEGECMOLIVER) 41.7(L) 52.0 - 69.0 mm 10/26/2024 4:43 PM EDT [facility] Citrated Functional Fibrinogen W/Heparinase Maximum Amplitude(TEGEC MOLIVER) 11.4(L) 15.0 - 34.0 mm 10/26/2024 4:43 PM EDT [facility] Citrated Rapid Teg W/Heparinase Maximum Amplitude (TEGECMOLIVER) 38.6(L) 53.0 - 69.0 mm 10/26/2024 4:[address] [facility] Citrated Kaolin w/Heparinase Percent Lysis (TEGECMOLIVER) 0.0 0.0 - 3.2 % 10/26/2024 4:[address] [facility] Whole Blood (Citrate) 10/26/2024 3:03 PM EDT 10/26/2024 3:10 PM EDT us Jani Mooney MD LAB BLOOD ORDERABLES Final Resul t Performing Organization Address City/State/[facility] Co de Phone Number [facility] [address] * ECG 12 lead (MUSE) (10/26/2024 2:19 PM EDT) 10/26/2024 2:19 PM EDT Narrative MUSE - 10/27/2024 10:09 AM EDT Ventricular Rate: 105 BPM Atrial Rate: 105 BPM P-R Interval: 128 ms QRS Duration: 94 ms QT: 474 ms QTc: 626 ms R Erie: -37 degrees T Erie: 35 degrees Diagnosis Line: Critical Test Result: Long QTc ^ SINUS TACHYCARDIA ^ LEFT AXIS DEVIATION, LEFT ANTERIOR HEMIBLOCK ^ PROLONGED QT ^ ABNORMAL ECG ^ ^ Confirmed by MD HA, [facility] ([facility]) on 10/27/2024 10:09:25 AM us Quinten Best MD ECG ORDERABLES Final Result MUSE * (ABNORMAL) POC Glucose Monitoring Device (10/26/2024 2:00 PM EDT) POC Glucose Monitoring Device 183(H) 70 - 100 mg/dL 10/26/2024 2:01 PM EDT [facility] Blood 10/26/2024 2:00 PM EDT 10/26/2024 2:01 PM EDT Semaj Mcnair III, MD POINT OF CARE TEST ORDERABLES Final Result Performing Organization Address [facility] Co de Phone Number [facility] [address] [facility]. [address] * (ABNORMAL) POC Glucose Monitoring Device (10/26/2024 1:05 PM EDT) POC Glucose Monitoring Device 212(H) 70 - 100 mg/dL 10/26/2024 1:06 PM EDT [facility] Blood 10/26/2024 1:05 PM EDT 10/26/2024 1:06 PM EDT Semaj Mcnair III, MD POINT OF CARE TEST ORDERABLES Final Result Performing Organization Address [facility] Co de Phone Number [facility] [address] [facility]. [address] * Transfuse Cryoprecipitate Has consent been obtained? Yes; Transfusion Rate: Per dept routine (10/26/2024 12:25 PM EDT) Shay Sifuentes MD NURSING TREATMENT ORDERABLES - BLOOD ADMIN Final Result EXTERNAL * Transfuse Cryoprecipitate Has consent been obtained? Yes; Transfusion Rate: Per dept routine, 1 Units (10/26/2024 12:25 PM EDT) Shay Sifuentes MD NURSING TREATMENT ORDERABLES - BLOOD ADMIN Final Result Performing Organization Address City/[facility]/ZIP Co de Phone Number EXTERNAL * (ABNORMAL) POC Glucose Monitoring Device (10/26/2024 12:06 PM EDT) POC Glucose Monitoring Device 226(H) 70 - 100 mg/dL 10/26/2024 12:07 PM EDT [facility] Blood 10/26/2024 12:0 6 PM EDT 10/26/2024 12:07 PM EDT Semaj Mcnair III, MD POINT OF CARE TEST ORDERABLES Final Result Performing Organization Address [facility] Co de Phone Number [facility] [address] * Transfuse Cryoprecipitate Transfusion Rate: Per dept routine (10/26/2024 12:01 PM EDT) John Pina MD NURSING TREATMENT ORDERABLES - BLOOD ADMIN Final Result Performing Organization Address [facility] Co de Phone Number EXTERNAL * Transfuse Cryoprecipitate Transfusion Rate: Per dept routine, 1 Units (10/26/2024 12:01 PM EDT) John Pina MD NURSING TREATMENT ORDERABLES - BLOOD ADMIN Final Result Performing Organization Address City/[facility]/[place] de Phone Number EXTERNAL * Lactic Acid (10/26/2024 10:48 AM EDT) Lactate 1.2 0.5 - 2.2 mmol/L 10/26/2024 11:27 AM EDT [facility] Plasma 10/26/2024 10:4 8 AM EDT 10/26/2024 10:53 AM EDT Kemar Sahni MD LAB BLOOD ORDERABLES Final Result Performing Organization Address City/[facility] Co de Phone Number [facility] [address] * Magnesium (10/26/2024 10:48 AM EDT) Magnesium 2.0 1.5 - 2.5 mg/dL 10/26/2024 11:26 AM EDT [facility] Plasma 10/26/2024 10:4 8 AM EDT 10/26/2024 10:53 AM EDT Kemar Sahni MD LAB BLOOD ORDERABLES Final Result [facility] [address] * (ABNORMAL) Hepatic Function Panel (10/26/2024 10:48 AM EDT) Total Bilirubin 5.9(H) 0.0 - 1.5 mg/dL 10/26/2024 11:26 AM EDT [facility] Bilirubin, Direct 4.74(H) 0.00 - 0.40 mg/dL 10/26/2024 11:26 AM EDT [facility] AST 872(H) 13 - 39 U/L 10/26/2024 11:26 AM EDT [facility] ALT 736(H) 7 - 52 U/L 10/26/2024 11:26 AM EDT [facility] Alkaline Phosphatase 56 36 - 125 U/L 10/26/2024 11:26 AM EDT [facility] Total Protein 3.5(L) 6.4 - 8.9 g/dL 10/26/2024 11:26 AM EDT [facility] Albumin 2.5(L) 3.5 - 5.7 g/dL 10/26/2024 11:26 AM EDT [facility] Bilirubin, Indirect 1.16(H) 0.00 - 1.10 mg/dL 10/26/2024 11:26 AM EDT [facility] Plasma 10/26/2024 10:4 8 AM EDT 10/26/2024 10:53 AM EDT Kemar Sahni MD LAB BLOOD ORDERABLES Final Result Performing Organization Address [facility]/ZIP Co de Phone Number [facility] [address] * (ABNORMAL) Protime-INR (10/26/2024 10:48 AM EDT) Protime 23.0(H) 12.1 - 15.1 seconds 10/26/2024 11:26 AM EDT [facility] INR 2.0(H) 0.9 - 1.1 10/26/2024 11:26 AM EDT [facility] Comment: RECOMMENDED THERAPEUTIC RANGES USING INR : Stable oral anticoagulant therapy: 2.0 - 3.0 Mechanical prosthetic heart valve: 2.5 - 3.5 Recurrent acute myocardial infarction: 2.5 - 3.5 Plasma 10/26/2024 10:4 8 AM EDT 10/26/2024 10:53 AM EDT Kemar Sahni MD LAB BLOOD ORDERABLES Final Result Performing Organization Address [facility] Co de Phone Number [facility] [address] * (ABNORMAL) CBC (10/26/2024 10:48 AM EDT) WBC 17.3(H) 3.8 - 10.8 10E3/uL 10/26/2024 11:14 AM EDT [facility] RBC 4.22 4.20 - 5.80 10E6/uL 10/26/2024 11:14 AM EDT [facility] Hemoglobin 12.8(L) 13.2 - 17.1 g/dL 10/26/2024 11:14 AM EDT [facility] Hematocrit 37.2(L) 38.5 - 50.0 % 10/26/2024 11:14 AM EDT [facility] MCV 88.3 80.0 - 100.0 fL 10/26/2024 11:14 AM EDT [facility] MCH 30.4 27.0 - 33.0 pg 10/26/2024 11:14 AM EDT [facility] MCHC 34.4 32.0 - 36.0 g/dL 10/26/2024 11:14 AM EDT [facility] RDW 20.8(H) 11.0 - 15.0 % 10/26/2024 11:14 AM EDT [facility] Platelets 109(L) 140 - 400 10E3/uL 10/26/2024 11:14 AM EDT [facility] MPV 7.5 7.5 - 11.5 fL 10/26/2024 11:14 AM EDT [facility] Whole Blood 10/26/2024 10:4 8 AM EDT 10/26/2024 10:53 AM EDT Kemar Sahni MD LAB BLOOD ORDERABLES Final Result [facility] [address] [place] [address], [facility] * (ABNORMAL) Blood gas, arterial (10/26/2024 10:48 AM EDT) O2 Sat, Arterial 97 10/26/2024 10:54 AM EDT [facility] FIO2 35% 10/26/2024 10:54 AM EDT [facility] pH, Arterial 7.37 7.35 - 7.45 10/26/2024 10:54 AM EDT [facility] pCO2, Arterial 36 35 - 45 mm Hg 10/26/2024 10:54 AM EDT [facility] pO2, Arterial 91 80 - 100 mm Hg 10/26/2024 10:54 AM EDT [facility] HCO3, Arterial 22 22 - 26 mmol/L 10/26/2024 10:54 AM EDT [facility] CO2 Content,Arteri al 22(L) 23 - 27 mmol/L 10/26/2024 10:54 AM EDT [facility] Base Excess, Arterial -3.9(L) -2.0 - 3.0 mmol/L 10/26/2024 10:54 AM EDT [facility] %HBO2, Arterial 94.8(L) 95.0 - 98.0 % 10/26/2024 10:54 AM EDT [facility] Carboxyhemoglo bin, Arterial 1.9 % 10/26/2024 10:54 AM EDT [facility] Comment: CARBOXYHEMOGLOBIN (CO) REFERENCE RANGES: Non-Smokers: <2 % Smokers: <8 % TOXIC: >20 % Methemoglobin, Arterial 0.7 0.0 - 1.5 % 10/26/2024 10:54 AM EDT [facility] Reduced hemoglobin, Arterial 2.5 0.0 - 5.0 % 10/26/2024 10:54 AM EDT [facility] Blood, Arterial 10/26/2024 1 0:48 AM EDT 10/26/2024 10:52 AM EDT us Shay Sifuentes MD LAB BLOOD ORDERABLES Final Resu lt [facility] [address] [place] [address], [facility] * (ABNORMAL) Renal Function Panel w/EGFR (10/26/2024 10:48 AM EDT) Sodium 139 133 - 146 mmol/L 10/26/2024 11:26 AM EDT [facility] Potassium 2.9(LL) 3.5 - 5.3 mmol/L 10/26/2024 11:26 AM EDT [facility] Comment:K CRITICAL VALUE WAS PREVIOUSLY CALLED Chloride 107 98 - 110 mmol/L 10/26/2024 11:26 AM EDT [facility] CO2 22 21 - 33 mmol/L 10/26/2024 11:26 AM EDT [facility] Anion Gap 10 3 - 16 mmol/L 10/26/2024 11:26 AM EDT [facility] BUN 61(H) 7 - 25 mg/dL 10/26/2024 11:26 AM EDT [facility] Creatinine 2.78(H) 0.60 - 1.30 mg/dL 10/26/2024 11:26 AM EDT [facility] Glucose 253(H) 70 - 100 mg/dL 10/26/2024 11:26 AM EDT [facility] Calcium 8.8 8.6 - 10.3 mg/dL 10/26/2024 11:26 AM EDT [facility] Phosphorus 4.1 2.1 - 4.7 mg/dL 10/26/2024 11:26 AM EDT [facility] Albumin 2.5(L) 3.5 - 5.7 g/dL 10/26/2024 11:26 AM EDT [facility] Osmolality, Calculated 314(H) 278 - 305 mOsm/kg 10/26/2024 11:26 AM EDT [facility] EGFR 28 10/26/2024 11:26 AM EDT [facility] Comment:As of 2021, the [...] Sahni MD LAB BLOOD ORDERABLES Final Result [facility] [address] * (ABNORMAL) POC Glucose Monitoring Device (10/26/2024 10:47 AM EDT) POC Glucose Monitoring Device 234(H) 70 - 100 mg/dL 10/26/2024 10:48 AM EDT [facility] Blood 10/26/2024 10:4 7 AM EDT 10/26/2024 10:48 AM EDT Semaj Mcnair III, MD POINT OF CARE TEST ORDERABLES Final Result [facility] [address] * CARISA Rhythm Strip - Scan (10/26/2024 10:45 AM EDT) us Scanning Uchhim SCAN DOCS - NO RESULTS Final Res ult * (ABNORMAL) POC Glucose Monitoring Device (10/26/2024 10:08 AM EDT) POC Glucose Monitoring Device 235(H) 70 - 100 mg/dL 10/26/2024 10:09 AM EDT [facility] Blood 10/26/2024 10:0 8 AM EDT 10/26/2024 10:09 AM EDT us Semaj Mcnair III, MD POINT OF CARE TEST ORDERABLES Final Result Performing Organization Address [facility] Co de Phone Number [facility] [address] [facility]. [address] * (ABNORMAL) POC Glucose Monitoring Device (10/26/2024 8:57 AM EDT) POC Glucose Monitoring Device 232(H) 70 - 100 mg/dL 10/26/2024 8:59 AM EDT [facility] Blood 10/26/2024 8:57 AM EDT 10/26/2024 8:58 AM EDT us Semaj Mcnair III, MD POINT OF CARE TEST ORDERABLES Final Result Performing Organization Address [facility] Co de Phone Number [facility] [address] * ECG 12 lead (MUSE) (10/26/2024 8:16 AM EDT) 10/26/2024 8:16 AM EDT Narrative MUSE - 10/27/2024 10:09 AM EDT Ventricular Rate: 112 BPM QRS Duration: 96 ms QT: 452 ms QTc: 616 ms R Erie: -41 degrees T Erie: 40 degrees Diagnosis Line: Critical Test Result: Long QTc ^ SINUS TACHYCARDIA OCCASIONAL PREMATURE VENTRICULAR COMPLEXES ^ LEFT AXIS DEVIATION, LEFT ANTERIOR HEMIBLOCK ^ PROLONGED QT ^ ABNORMAL ECG ^ ^ Confirmed by MD HA, [facility] ([id number]) on 10/27/2024 10:09:18 AM [...] Monitoring Device (10/26/2024 7:59 AM EDT) Pathologist [facility] [place] POC Glucose Monitoring Device 229(H) 70 - 100 mg/dL 10/26/2024 8:01 AM EDT [facility] Blood 10/26/2024 7:59 AM EDT 10/26/2024 8:00 AM EDT Semaj Mcnair III, MD POINT OF CARE TEST ORDERABLES Final Result Performing Organization Address City/State/[facility] Co de Phone Number [facility] [address] * (ABNORMAL) TEG-Bypass/ECMO/Liver HN (Factor function, Platelet/Fibrin Clot Strength w/Clot Breakdown, Heparinase In All Channels) (10/26/2024 7:59 AM EDT) Citrated Kaolin Reaction Time (TEGECMOLIVER) 8.2 4.6 - 9.1 minutes 10/26/2024 10:36 AM EDT [facility] Citrated Kaolin W/Heparinase Reaction Time (TEGECMOLIVER) 8.1 4.3 - 8.3 minutes 10/26/2024 10:36 AM EDT [facility] Citrated Kaolin Maximum Amplitude (TEGECMOLIVER) 46.8(L) 52.0 - 69.0 mm 10/26/2024 10:36 AM EDT [facility] Citrated Functional Fibrinogen W/Heparinase Maximum Amplitude(TEGEC MOLIVER) 10.5(L) 15.0 - 34.0 mm 10/26/2024 10:36 AM EDT [facility] Citrated Rapid Teg W/Heparinase Maximum Amplitude (TEGECMOLIVER) 45.5(L) 53.0 - 69.0 mm 10/26/2024 10:36 AM EDT [facility] Citrated Kaolin w/Heparinase Percent Lysis (TEGECMOLIVER) 0.0 0.0 - 3.2 % 10/26/2024 10:36 AM EDT [facility] Whole Blood (Citrate) 10/26/2024 7:59 AM EDT 10/26/2024 8:05 AM EDT Shay Sifuentes MD LAB BLOOD ORDERABLES Final Resu lt Performing Organization Address [facility] Co de Phone Number [facility] [address] * (ABNORMAL) POC Glucose Monitoring Device (10/26/2024 6:12 AM EDT) POC Glucose Monitoring Device 196(H) 70 - 100 mg/dL 10/26/2024 6:13 AM EDT [facility] Blood 10/26/2024 6:12 AM EDT 10/26/2024 6:13 AM EDT Semaj Mcnair III, MD POINT OF CARE TEST ORDERABLES Final Result Performing Organization Address [facility]/[place] de Phone Number [facility] [address] [facility]. [address] * Lactic Acid (10/26/2024 6:10 AM EDT) Lactate 1.2 0.5 - 2.2 mmol/L 10/26/2024 6:39 AM EDT [facility] Plasma 10/26/2024 6:10 AM EDT 10/26/2024 6:19 AM EDT Sveta Judge MD LAB BLOOD ORDERABLES Final Resu lt Performing Organization Address [facility] Co de Phone Number [facility] [address] * (ABNORMAL) Fibrinogen (10/26/2024 6:10 AM EDT) Fibrinogen 160(L) 218 - 406 mg/dL 10/26/2024 6:41 AM EDT [facility] Plasma 10/26/2024 6:10 AM EDT 10/26/2024 6:26 AM EDT Sveta Judge MD LAB BLOOD ORDERABLES Final Resu lt Performing Organization Address [facility]/[place] de Phone Number [facility] [address] [facility] * (ABNORMAL) Protime-INR (10/26/2024 6:10 AM EDT) Protime 25.0(H) 12.1 - 15.1 seconds 10/26/2024 6:41 AM EDT [facility] INR 2.2(H) 0.9 - 1.1 10/26/2024 6:41 AM EDT [facility] Comment: RECOMMENDED THERAPEUTIC RANGES USING INR : Stable oral anticoagulant therapy: 2.0 - 3.0 Mechanical prosthetic heart valve: 2.5 - 3.5 Recurrent acute myocardial infarction: 2.5 - 3.5 Plasma 10/26/2024 6:10 AM EDT 10/26/2024 6:26 AM EDT Result [facility] Sveta Judge MD LAB BLOOD ORDERABLES Final Resu lt Performing Organization Address [facility]/[place] de Phone Number [facility] [address] [facility]. [address] * (ABNORMAL) Blood gas, arterial (10/26/2024 6:10 AM EDT) O2 Sat, Arterial 98 10/26/2024 6:23 AM EDT [facility] FIO2 60 10/26/2024 6:23 AM EDT [facility] pH, Arterial 7.27(L) 7.35 - 7.45 10/26/2024 6:23 AM EDT [facility] pCO2, Arterial 47(H) 35 - 45 mm Hg 10/26/2024 6:23 AM EDT [facility] pO2, Arterial 127(H) 80 - 100 mm Hg 10/26/2024 6:23 AM EDT [facility] HCO3, Arterial 21(L) 22 - 26 mmol/L 10/26/2024 6:23 AM EDT [facility] CO2 Content,Arteri al 23 23 - 27 mmol/L 10/26/2024 6:23 AM EDT [facility] Base Excess, Arterial -5.4(L) -2.0 - 3.0 mmol/L 10/26/2024 6:23 AM EDT [facility] %HBO2, Arterial 94.6(L) 95.0 - 98.0 % 10/26/2024 6:23 AM EDT [facility] Carboxyhemoglo bin, Arterial 2.0 % 10/26/2024 6:23 AM EDT [facility] Comment: CARBOXYHEMOGLOBIN (CO) REFERENCE RANGES: Non-Smokers: <2 % Smokers: <8 % TOXIC: >20 % Methemoglobin, Arterial 1.6(H) 0.0 - 1.5 % 10/26/2024 6:23 AM EDT [facility] Reduced hemoglobin, Arterial 1.8 0.0 - 5.0 % 10/26/2024 6:23 AM EDT [facility] Blood, Arterial 10/26/2024 6 :10 AM EDT 10/26/2024 6:20 AM EDT Sveta Judge MD LAB BLOOD ORDERABLES Final Resu lt Performing Organization Address City/[facility] Co de Phone Number [facility] [address] [facility]. [address] * Magnesium (10/26/2024 6:10 AM EDT) Magnesium 1.5 1.5 - 2.5 mg/dL 10/26/2024 7:09 AM EDT [facility] Plasma 10/26/2024 6:10 AM EDT 10/26/2024 6:23 AM EDT Sveta Judge MD LAB BLOOD ORDERABLES Final Resu lt [facility] [address] [facility]. [address] * (ABNORMAL) Hepatic Function Panel (10/26/2024 6:10 AM EDT) Total Bilirubin 6.2(H) 0.0 - 1.5 mg/dL 10/26/2024 7:11 AM EDT [facility] Bilirubin, Direct 5.26(H) 0.00 - 0.40 mg/dL 10/26/2024 7:11 AM EDT [facility] AST 1,071(H) 13 - 39 U/L 10/26/2024 7:11 AM EDT [facility] ALT 805(H) 7 - 52 U/L 10/26/2024 7:11 AM EDT [facility] Alkaline Phosphatase 55 36 - 125 U/L 10/26/2024 7:11 AM EDT [facility] Total Protein <3.0(L) 6.4 - 8.9 g/dL 10/26/2024 7:11 AM EDT [facility] Albumin 1.9(L) 3.5 - 5.7 g/dL 10/26/2024 7:11 AM EDT [facility] Bilirubin, Indirect 0.94 0.00 - 1.10 mg/dL 10/26/2024 7:11 AM EDT [facility] Plasma 10/26/2024 6:10 AM EDT 10/26/2024 6:23 AM EDT us Sveta Judge MD LAB BLOOD ORDERABLES Final Resu lt [facility] [address] [facility]. [address] * (ABNORMAL) Renal Function Panel w/EGFR (10/26/2024 6:10 AM EDT) Sodium 141 133 - 146 mmol/L 10/26/2024 7:09 AM EDT [facility] Potassium 2.8(LL) 3.5 - 5.3 mmol/L 10/26/2024 7:09 AM EDT [facility] Comment:Critical value previ ously called. Chloride 106 98 - 110 mmol/L 10/26/2024 7:09 AM EDT [facility] CO2 25 21 - 33 mmol/L 10/26/2024 7:09 AM EDT [facility] Anion Gap 10 3 - 16 mmol/L 10/26/2024 7:09 AM EDT [facility] BUN 57(H) 7 - 25 mg/dL 10/26/2024 7:09 AM EDT [facility] Creatinine 2.70(H) 0.60 - 1.30 mg/dL 10/26/2024 7:09 AM EDT [facility] Glucose 210(H) 70 - 100 mg/dL 10/26/2024 7:09 AM EDT [facility] Calcium 8.7 8.6 - 10.3 mg/dL 10/26/2024 7:09 AM EDT [facility] Phosphorus 5.4(H) 2.1 - 4.7 mg/dL 10/26/2024 7:09 AM EDT [facility] Albumin 1.9(L) 3.5 - 5.7 g/dL 10/26/2024 7:11 AM EDT [facility] Osmolality, Calculated 314(H) 278 - 305 mOsm/kg 10/26/2024 7:09 AM EDT [facility] EGFR 29 10/26/2024 7:09 AM EDT [facility] Comment:As of 2021, the [...] MD LAB BLOOD ORDERABLES Final Resu lt [facility] [address] * (ABNORMAL) CBC (10/26/2024 6:10 AM EDT) WBC 14.8(H) 3.8 - 10.8 10E3/uL 10/26/2024 6:46 AM EDT [facility] RBC 4.04(L) 4.20 - 5.80 10E6/uL 10/26/2024 6:46 AM EDT [facility] Hemoglobin 12.7(L) 13.2 - 17.1 g/dL 10/26/2024 6:46 AM EDT [facility] Hematocrit 35.9(L) 38.5 - 50.0 % 10/26/2024 6:46 AM EDT [facility] MCV 89.0 80.0 - 100.0 fL 10/26/2024 6:46 AM EDT [facility] MCH 31.3 27.0 - 33.0 pg 10/26/2024 6:46 AM EDT [facility] MCHC 35.2 32.0 - 36.0 g/dL 10/26/2024 6:46 AM EDT [facility] RDW 19.7(H) 11.0 - 15.0 % 10/26/2024 6:46 AM EDT [facility] Platelets 107(L) 140 - 400 10E3/uL 10/26/2024 6:46 AM EDT [facility] MPV 7.4(L) 7.5 - 11.5 fL 10/26/2024 6:46 AM EDT [facility] Whole Blood 10/26/2024 6:10 AM EDT 10/26/2024 6:26 AM EDT Sveta Judge MD LAB BLOOD ORDERABLES Final Resu lt [facility] [address] * (ABNORMAL) POC INR (10/26/2024 5:16 AM EDT) Prothrombin Time INR, POC 2.4(H) 0.8 - 1.4 10/27/2024 6:51 AM EDT [facility] Comment: Test results may vary [...] TEST ORDERABLES Final Result Performing Organization Address [facility] Co de Phone Number [facility] [address] [place] [address]. [address] * POC Sample Type (10/26/2024 5:14 AM EDT) Pathologist [facility] [place] POC Sample Type Arterial 10/26/2024 5:31 AM EDT [facility] Blood, Arterial 10/26/2024 5 :14 AM EDT 10/26/2024 5:31 AM EDT us Semaj Mcnair III, MD POINT OF CARE TEST ORDERABLES Final Result Performing Organization Address [facility] Co de Phone Number [facility] [address] [place] [address]. [address] * POC Anion Gap (10/26/2024 5:14 AM EDT) POC Anion Gap, Arterial 12 3 - 16 mmol/L 10/26/2024 5:31 AM EDT [facility] Blood, Arterial 10/26/2024 5 :14 AM EDT 10/26/2024 5:31 AM EDT us Semaj Mcnair III, MD POINT OF CARE TEST ORDERABLES Final Result Performing Organization Address City/[facility]/ZIP Co de Phone Number [facility] [address] * POC Chloride (10/26/2024 5:14 AM EDT) POC Chloride 104 98 - 110 mmol/L 10/26/2024 5:31 AM EDT [facility] Blood, Arterial 10/26/2024 5 :14 AM EDT 10/26/2024 5:31 AM EDT us Semaj Mcnair III, MD POINT OF CARE TEST ORDERABLES Final Result Performing Organization Address [facility] Co de Phone Number [facility] [address] * (ABNORMAL) POC Hemoglobin (10/26/2024 5:14 AM EDT) POC Hemoglobin 9.5(L) 14.0 - 18.0 g/dL 10/26/2024 5:31 AM EDT [facility] Blood, Arterial 10/26/2024 5 :14 AM EDT 10/26/2024 5:31 AM EDT us Semaj Mcnair III, MD POINT OF CARE TEST ORDERABLES Final Result Performing Organization Address [facility] Co de Phone Number [facility] [address] * (ABNORMAL) POC hematocrit (10/26/2024 5:14 AM EDT) POC Hematocrit 28.0(L) 40 - 52 % 10/26/2024 5:31 AM EDT [facility] Blood, Arterial 10/26/2024 5 :14 AM EDT 10/26/2024 5:31 AM EDT us Semaj Mcnair III, MD POINT OF CARE TEST ORDERABLES Final Result Performing Organization Address City/[facility]/ZIP Co de Phone Number [facility] [address] * POC Lactate (10/26/2024 5:14 AM EDT) POC Lactate 1.76 0.50 - 2.20 mmol/L 10/26/2024 5:31 AM EDT [facility] Blood, Arterial 10/26/2024 5 :14 AM EDT 10/26/2024 5:31 AM EDT us Semaj Mcnair III, MD POINT OF CARE TEST ORDERABLES Final Result [facility] [address] * (ABNORMAL) POC Glucose (10/26/2024 5:14 AM EDT) POC Glucose, Arterial 183(H) 70 - 100 mg/dL 10/26/2024 5:31 AM EDT [facility] Blood, Arterial 10/26/2024 5 :14 AM EDT 10/26/2024 5:31 AM EDT us Semaj Mcnair III, MD POINT OF CARE TEST ORDERABLES Final Result Performing Organization Address City/[facility]/ZIP Co de Phone Number [facility] [address] [facility]. [address] * (ABNORMAL) POC Ionized Calcium (10/26/2024 5:14 AM EDT) POC Ionized Calcium 5.50(H) 4.50 - 5.30 mg/dL 10/26/2024 5:31 AM EDT [facility] Blood, Arterial 10/26/2024 5 :14 AM EDT 10/26/2024 5:31 AM EDT us Semaj Mcnair III, MD POINT OF CARE TEST ORDERABLES Final Result [facility] [address] * (ABNORMAL) POC Potassium (10/26/2024 5:14 AM EDT) POC Potassium 2.8(LL) 3.5 - 5.3 mmol/L 10/26/2024 5:31 AM EDT [facility] Blood, Arterial 10/26/2024 5 :14 AM EDT 10/26/2024 5:31 AM EDT Semaj Mcnair III, MD POINT OF CARE TEST ORDERABLES Final Result [facility] [address] * POC Sodium (10/26/2024 5:14 AM EDT) POC Sodium 138 136 - 146 mmol/L 10/26/2024 5:31 AM EDT [facility] Blood, Arterial 10/26/2024 5 :14 AM EDT 10/26/2024 5:31 AM EDT Semaj Mcnair III, MD POINT OF CARE TEST ORDERABLES Final Result [facility] [address] * POC TCO2 (10/26/2024 5:14 AM EDT) POC TCO2, Arterial 23 23 - 27 mmol/L 10/26/2024 5:31 AM EDT [facility] Blood, Arterial 10/26/2024 5 :14 AM EDT 10/26/2024 5:31 AM EDT Semaj Mcnair III, MD POINT OF CARE TEST ORDERABLES Final Result [facility] [address] * (ABNORMAL) POC O2 SAT (10/26/2024 5:14 AM EDT) POC O2 Saturation, Arterial 99(H) 95 - 98 % 10/26/2024 5:31 AM EDT [facility] Blood, Arterial 10/26/2024 5 :14 AM EDT 10/26/2024 5:31 AM EDT us Semaj Mcnair III, MD POINT OF CARE TEST ORDERABLES Final Result [facility] [address] [facility]. [address] * (ABNORMAL) POC Base Excess (10/26/2024 5:14 AM EDT) POC Base Excess, Arterial -5(L) -2 - 3 mmol/L 10/26/2024 5:31 AM EDT [facility] Blood, Arterial 10/26/2024 5 :14 AM EDT 10/26/2024 5:31 AM EDT us Semaj Mcnair III, MD POINT OF CARE TEST ORDERABLES Final Result Performing Organization Address [facility] Co de Phone Number [facility] [address] [facility]. [address] * POC HCO3 (10/26/2024 5:14 AM EDT) POC HCO3, Arterial 22 22 - 26 mmol/L 10/26/2024 5:31 AM EDT [facility] Blood, Arterial 10/26/2024 5 :14 AM EDT 10/26/2024 5:31 AM EDT us Semaj Mcnair III, MD POINT OF CARE TEST ORDERABLES Final Result Performing Organization Address City/[facility]/ZIP Co de Phone Number [facility] [address] [facility]. [address] * (ABNORMAL) POC PO2 (10/26/2024 5:14 AM EDT) POC pO2, Arterial 133(H) 80 - 100 mm Hg 10/26/2024 5:31 AM EDT [facility] Blood, Arterial 10/26/2024 5 :14 AM EDT 10/26/2024 5:31 AM EDT Semaj Mcnair III, MD POINT OF CARE TEST ORDERABLES Final Result [facility] [address] * POC PCO2 (10/26/2024 5:14 AM EDT) POC pCO2, Arterial 45 35 - 45 mm Hg 10/26/2024 5:31 AM EDT [facility] Blood, Arterial 10/26/2024 5 :14 AM EDT 10/26/2024 5:31 AM EDT Semaj Mcnair III, MD POINT OF CARE TEST ORDERABLES Final Result Performing Organization Address [facility] Co de Phone Number [facility] [address] [facility]. [address] * (ABNORMAL) POC pH (10/26/2024 5:14 AM EDT) POC pH, Arterial 7.29(L) 7.35 - 7.45 10/26/2024 5:31 AM EDT [facility] Blood, Arterial 10/26/2024 5 :14 AM EDT 10/26/2024 5:31 AM EDT Semaj Mcnair III, MD POINT OF CARE TEST ORDERABLES Final Result Performing Organization Address City/[facility] Co de Phone Number [facility] [address] * Transfuse Cryoprecipitate (10/26/2024 4:37 AM EDT) us Eber Quinones MD NURSING TREATMENT ORDERA BLES - BLOOD ADMIN Final Result * Transfuse Cryoprecipitate (10/26/2024 4:37 AM EDT) Result [facility] Eber Quinones MD NURSING [...] POINT OF CARE TEST ORDERABLES Final Result [facility] [address] [place] [address] * POC Sample Type (10/26/2024 4:24 AM EDT) Pathologist [facility] [place] POC Sample Type Arterial 10/26/2024 5:09 AM EDT [facility] Blood, Arterial 10/26/2024 4 :24 AM EDT 10/26/2024 5:09 AM EDT Semaj Mcnair III, MD POINT OF CARE TEST ORDERABLES Final Result [facility] [address] * POC Anion Gap (10/26/2024 4:24 AM EDT) Pathologist [facility] [place] POC Anion Gap, Arterial 14 3 - 16 mmol/L 10/26/2024 5:09 AM EDT [facility] Blood, Arterial 10/26/2024 4 :24 AM EDT 10/26/2024 5:09 AM EDT us Semaj Mcnair III, MD POINT OF CARE TEST ORDERABLES Final Result Performing Organization Address City/[facility] Co de Phone Number [facility] [address] [place] [address]. [address] * POC Chloride (10/26/2024 4:24 AM EDT) POC Chloride 103 98 - 110 mmol/L 10/26/2024 5:09 AM EDT [facility] Blood, Arterial 10/26/2024 4 :24 AM EDT 10/26/2024 5:09 AM EDT us Semaj Mcnair III, MD POINT OF CARE TEST ORDERABLES Final Result Performing Organization Address [facility] Co de Phone Number [facility] [address] [facility]. [address] * (ABNORMAL) POC Hemoglobin (10/26/2024 4:24 AM EDT) POC Hemoglobin 10.3(L) 14.0 - 18.0 g/dL 10/26/2024 5:09 AM EDT [facility] Blood, Arterial 10/26/2024 4 :24 AM EDT 10/26/2024 5:09 AM EDT us Semaj Mcnair III, MD POINT OF CARE TEST ORDERABLES Final Result Performing Organization Address City/[facility] Co de Phone Number [facility] [address] [place] [address]. [address] * (ABNORMAL) POC hematocrit (10/26/2024 4:24 AM EDT) POC Hematocrit 30.0(L) 40 - 52 % 10/26/2024 5:09 AM EDT [facility] Blood, Arterial 10/26/2024 4 :24 AM EDT 10/26/2024 5:09 AM EDT us Semaj Mcnair III, MD POINT OF CARE TEST ORDERABLES Final Result Performing Organization Address City/[facility]/ZIP Co de Phone Number [facility] [address] [place] [address]. [address] * (ABNORMAL) POC Lactate (10/26/2024 4:24 AM EDT) POC Lactate 2.43(H) 0.50 - 2.20 mmol/L 10/26/2024 5:09 AM EDT [facility] Blood, Arterial 10/26/2024 4 :24 AM EDT 10/26/2024 5:09 AM EDT us Semaj Mcnair III, MD POINT OF CARE TEST ORDERABLES Final Result Performing Organization Address [facility]/ZIP Co de Phone Number [facility] [address] [facility]. [address] * (ABNORMAL) POC Glucose (10/26/2024 4:24 AM EDT) POC Glucose, Arterial 185(H) 70 - 100 mg/dL 10/26/2024 5:09 AM EDT [facility] Blood, Arterial 10/26/2024 4 :24 AM EDT 10/26/2024 5:09 AM EDT us Semaj Mcnair III, MD POINT OF CARE TEST ORDERABLES Final Result Performing Organization Address City/[facility]/ZIP Co de Phone Number [facility] [address] [place] [address]. [address] * POC Ionized Calcium (10/26/2024 4:24 AM EDT) POC Ionized Calcium 5.20 4.50 - 5.30 mg/dL 10/26/2024 5:09 AM EDT [facility] Blood, Arterial 10/26/2024 4 :24 AM EDT 10/26/2024 5:09 AM EDT us Semaj Mcnair III, MD POINT OF CARE TEST ORDERABLES Final Result Performing Organization Address City/[facility] Co de Phone Number [facility] [address] [place] [address]. [address] * (ABNORMAL) POC Potassium (10/26/2024 4:24 AM EDT) POC Potassium 2.8(LL) 3.5 - 5.3 mmol/L 10/26/2024 5:09 AM EDT [facility] Blood, Arterial 10/26/2024 4 :24 AM EDT 10/26/2024 5:09 AM EDT us Semaj Mcnair III, MD POINT OF CARE TEST ORDERABLES Final Result Performing Organization Address [facility] Co de Phone Number [facility] [address] [facility]. [address] * POC Sodium (10/26/2024 4:24 AM EDT) POC Sodium 139 136 - 146 mmol/L 10/26/2024 5:09 AM EDT [facility] Blood, Arterial 10/26/2024 4 :24 AM EDT 10/26/2024 5:09 AM EDT us Semaj Mcnair III, MD POINT OF CARE TEST ORDERABLES Final Result Performing Organization Address City/[facility] Co de Phone Number [facility] [address] [facility]. [address] * POC TCO2 (10/26/2024 4:24 AM EDT) POC TCO2, Arterial 23 23 - 27 mmol/L 10/26/2024 5:09 AM EDT [facility] Blood, Arterial 10/26/2024 4 :24 AM EDT 10/26/2024 5:09 AM EDT us Semaj Mcnair III, MD POINT OF CARE TEST ORDERABLES Final Result Performing Organization Address City/[facility] Co de Phone Number [facility] [address] * POC O2 SAT (10/26/2024 4:24 AM EDT) POC O2 Saturation, Arterial 96 95 - 98 % 10/26/2024 5:09 AM EDT [facility] Blood, Arterial 10/26/2024 4 :24 AM EDT 10/26/2024 5:09 AM EDT Semaj Mcnair III, MD POINT OF CARE TEST ORDERABLES Final Result Performing Organization Address [facility] Co de Phone Number [facility] [address] * (ABNORMAL) POC Base Excess (10/26/2024 4:24 AM EDT) POC Base Excess, Arterial -5(L) -2 - 3 mmol/L 10/26/2024 5:09 AM EDT [facility] Blood, Arterial 10/26/2024 4 :24 AM EDT 10/26/2024 5:09 AM EDT Semaj Mcnair III, MD POINT OF CARE TEST ORDERABLES Final Result Performing Organization Address City/[facility] Co de Phone Number [facility] [address] * POC HCO3 (10/26/2024 4:24 AM EDT) POC HCO3, Arterial 22 22 - 26 mmol/L 10/26/2024 5:09 AM EDT [facility] Blood, Arterial 10/26/2024 4 :24 AM EDT 10/26/2024 5:09 AM EDT us Semaj Mcnair III, MD POINT OF CARE TEST ORDERABLES Final Result Performing Organization Address City/[facility]/ZIP Co de Phone Number [facility] [address] [place] [address]. [address] * POC PO2 (10/26/2024 4:24 AM EDT) POC pO2, Arterial 93 80 - 100 mm Hg 10/26/2024 5:09 AM EDT [facility] Blood, Arterial 10/26/2024 4 :24 AM EDT 10/26/2024 5:09 AM EDT us Semaj Mcnair III, MD POINT OF CARE TEST ORDERABLES Final Result Performing Organization Address [facility] Co de Phone Number [facility] [address] [place] [address]. [address] * POC PCO2 (10/26/2024 4:24 AM EDT) POC pCO2, Arterial 44 35 - 45 mm Hg 10/26/2024 5:09 AM EDT [facility] Blood, Arterial 10/26/2024 4 :24 AM EDT 10/26/2024 5:09 AM EDT us Semaj Mcnair III, MD POINT OF CARE TEST ORDERABLES Final Result Performing Organization Address City/[facility]/ZIP Co de Phone Number [address] * (ABNORMAL) POC pH (10/26/2024 4:24 AM EDT) POC pH, Arterial 7.30(L) 7.35 - 7.45 10/26/2024 5:09 AM EDT [facility] Blood, Arterial 10/26/2024 4 :24 AM EDT 10/26/2024 5:09 AM EDT us Semaj Mcnair III, MD POINT OF CARE TEST ORDERABLES Final Result Performing Organization Address City/[facility]/ZIP Co de Phone Number [facility] [address] * Transfuse Platelets (10/26/2024 4:14 AM EDT) Result [facility] Ben Blake MD NURSING TREATMENT ORDERABLES - BLOOD ADMIN Final Result * Transfuse Fresh Frozen Plasma (10/26/2024 3:47 AM EDT) Ben Blake MD NURSING TREATMENT ORDERABLES - BLOOD ADMIN Final Result * (ABNORMAL) POC INR (10/26/2024 3:34 AM EDT) Prothrombin Time INR, POC 2.8(H) 0.8 - 1.4 10/27/2024 6:51 AM EDT [facility] Comment: Test results may vary using different testing platforms. Serial result monitoring should be performed using the same methodology. RECOMMENDED THERAPEUTIC RANGES USING INR : Stable oral anticoagulant therapy: 2.0 - 3.0 Mechanical prosthetic heart valve: 2.5 - 3.5 Recurrent acute myocardial infarction: 2.5 - 3.5 Blood 10/26/2024 3:34 AM EDT 10/27/2024 6:51 AM EDT Result [facility] Semaj Mcnair III, MD POINT OF CARE TEST ORDERABLES Final Result Performing Organization Address [facility] Co de Phone Number [facility] [address] * POC Sample Type (10/26/2024 3:31 AM EDT) POC Sample Type Arterial 10/26/2024 4:11 AM EDT [facility] Blood, Arterial 10/26/2024 3 :31 AM EDT 10/26/2024 4:11 AM EDT Semaj Mcnair III, MD POINT OF CARE TEST ORDERABLES Final Result Performing Organization Address City/[facility]/ZIP Co de Phone Number [facility] [address] * POC Anion Gap (10/26/2024 3:31 AM EDT) POC Anion Gap, Arterial 15 3 - 16 mmol/L 10/26/2024 4:11 AM EDT [facility] Blood, Arterial 10/26/2024 3 :31 AM EDT 10/26/2024 4:11 AM EDT us Semaj Mcnair III, MD POINT OF CARE TEST ORDERABLES Final Result [facility] [address] * POC Chloride (10/26/2024 3:31 AM EDT) Pathologist [facility] [place] POC Chloride 105 98 - 110 mmol/L 10/26/2024 4:11 AM EDT [facility] Blood, Arterial 10/26/2024 3 :31 AM EDT 10/26/2024 4:11 AM EDT us Semaj Mcnair III, MD POINT OF CARE TEST ORDERABLES Final Result Performing Organization Address City/[facility]/ZIP Co de Phone Number [facility] [address] * (ABNORMAL) POC Hemoglobin (10/26/2024 3:31 AM EDT) Pathologist [facility] [place] POC Hemoglobin 9.7(L) 14.0 - 18.0 g/dL 10/26/2024 4:11 AM EDT [facility] Blood, Arterial 10/26/2024 3 :31 AM EDT 10/26/2024 4:11 AM EDT us Semaj Mcnair III, MD POINT OF CARE TEST ORDERABLES Final Result Performing Organization Address City/[facility]/ZIP Co de Phone Number [facility] [address] * (ABNORMAL) POC hematocrit (10/26/2024 3:31 AM EDT) POC Hematocrit 29.0(L) 40 - 52 % 10/26/2024 4:11 AM EDT [facility] Blood, Arterial 10/26/2024 3 :31 AM EDT 10/26/2024 4:11 AM EDT us Semaj Mcnair III, MD POINT OF CARE TEST ORDERABLES Final Result Performing Organization Address City/[facility] Co de Phone Number [facility] [address] [facility] * (ABNORMAL) POC Lactate (10/26/2024 3:31 AM EDT) Pathologist [facility] [place] POC Lactate 3.54(H) 0.50 - 2.20 mmol/L 10/26/2024 4:11 AM EDT [facility] Blood, Arterial 10/26/2024 3 :31 AM EDT 10/26/2024 4:11 AM EDT us Semaj Mcnair III, MD POINT OF CARE TEST ORDERABLES Final Result Performing Organization Address [facility] Co de Phone Number [facility] [address] [facility] * (ABNORMAL) POC Glucose (10/26/2024 3:31 AM EDT) POC Glucose, Arterial 153(H) 70 - 100 mg/dL 10/26/2024 4:11 AM EDT [facility] Blood, Arterial 10/26/2024 3 :31 AM EDT 10/26/2024 4:11 AM EDT us Semaj Mcnair III, MD POINT OF CARE TEST ORDERABLES Final Result Performing Organization Address City/[facility] Co de Phone Number [facility] [address] [facility] * POC Ionized Calcium (10/26/2024 3:31 AM EDT) Pathologist [facility] [place] POC Ionized Calcium 5.10 4.50 - 5.30 mg/dL 10/26/2024 4:11 AM EDT [facility] Blood, Arterial 10/26/2024 3 :31 AM EDT 10/26/2024 4:11 AM EDT us Semaj Mcnair III, MD POINT OF CARE TEST ORDERABLES Final Result Performing Organization Address City/[facility]/ZIP Co de Phone Number [facility] [facility] [address] [facility]. [address] * (ABNORMAL) POC Potassium (10/26/2024 3:31 AM EDT) [facility] POC Potassium 2.6(LL) 3.5 - 5.3 mmol/L 10/26/2024 4:11 AM EDT [facility] Blood, Arterial 10/26/2024 3 :31 AM EDT 10/26/2024 4:11 AM EDT us Semaj Mcnair III, MD POINT OF CARE TEST ORDERABLES Final Result Performing Organization Address [facility] Co de Phone Number [facility] [address] [place] [address]. [address] * POC Sodium (10/26/2024 3:31 AM EDT) [facility] POC Sodium 138 136 - 146 mmol/L 10/26/2024 4:11 AM EDT [facility] Blood, Arterial 10/26/2024 3 :31 AM EDT 10/26/2024 4:11 AM EDT us Semaj Mcnair III, MD POINT OF CARE TEST ORDERABLES Final Result Performing Organization Address City/[facility] Co de Phone Number [facility] [address] [facility]. [address] * (ABNORMAL) POC TCO2 (10/26/2024 3:31 AM EDT) POC TCO2, Arterial 19(L) 23 - 27 mmol/L 10/26/2024 4:11 AM EDT [facility] Blood, Arterial 10/26/2024 3 :31 AM EDT 10/26/2024 4:11 AM EDT us Semaj Mcnair III, MD POINT OF CARE TEST ORDERABLES Final Result [facility] [address] [facility]. [address] * POC O2 SAT (10/26/2024 3:31 AM EDT) Pathologist [facility] [place] POC O2 Saturation, Arterial 97 95 - 98 % 10/26/2024 4:11 AM EDT [facility] Blood, Arterial 10/26/2024 3 :31 AM EDT 10/26/2024 4:11 AM EDT us Semaj Mcnair III, MD POINT OF CARE TEST ORDERABLES Final Result Performing Organization Address [facility] Co de Phone Number [facility] [address] [facility]. [address] * (ABNORMAL) POC Base Excess (10/26/2024 3:31 AM EDT) Pathologist [facility] [place] POC Base Excess, Arterial -9(L) -2 - 3 mmol/L 10/26/2024 4:11 AM EDT [facility] Blood, Arterial 10/26/2024 3 :31 AM EDT 10/26/2024 4:11 AM EDT us Semaj Mcniar III, MD POINT OF CARE TEST ORDERABLES Final Result Performing Organization Address City/[facility] Co de Phone Number [facility] [address] [facility]. [address] * (ABNORMAL) POC HCO3 (10/26/2024 3:31 AM EDT) Pathologist [facility] [place] POC HCO3, Arterial 18(L) 22 - 26 mmol/L 10/26/2024 4:11 AM EDT [facility] Blood, Arterial 10/26/2024 3 :31 AM EDT 10/26/2024 4:11 AM EDT us Semaj Mcnair III, MD POINT OF CARE TEST ORDERABLES Final Result Performing Organization Address City/[facility]/ZIP Co de Phone Number [facility] [address] [facility]. [address] * (ABNORMAL) POC PO2 (10/26/2024 3:31 AM EDT) POC pO2, Arterial 104(H) 80 - 100 mm Hg 10/26/2024 4:11 AM EDT [facility] Blood, Arterial 10/26/2024 3 :31 AM EDT 10/26/2024 4:11 AM EDT us Semaj Mcnair III, MD POINT OF CARE TEST ORDERABLES Final Result Performing Organization Address [facility] Co de Phone Number [facility] [address] [facility]. [address] * POC PCO2 (10/26/2024 3:31 AM EDT) POC pCO2, Arterial 42 35 - 45 mm Hg 10/26/2024 4:11 AM EDT [facility] Blood, Arterial 10/26/2024 3 :31 AM EDT 10/26/2024 4:11 AM EDT us Semaj Mcnair III, MD POINT OF CARE TEST ORDERABLES Final Result Performing Organization Address City/[facility] Co de Phone Number [facility] [address] [facility]. [address] * (ABNORMAL) POC pH (10/26/2024 3:31 AM EDT) POC pH, Arterial 7.24(L) 7.35 - 7.45 10/26/2024 4:11 AM EDT [facility] Blood, Arterial 10/26/2024 3 :31 AM EDT 10/26/2024 4:11 AM EDT Semaj Mcnair III, MD POINT OF CARE TEST ORDERABLES Final Result Performing Organization Address [facility]/ZIP Co de Phone Number [facility] [address] [facility]. [address] * (ABNORMAL) TEG-Global With Lysis (Baseline TEG with LY30, Will NOT Show Heparin Effect) (53:31 AM EDT) Citrated Kaolin Reaction Time (TEGLYSIS) 6.8 4.6 - 9.1 minutes 10/26/2024 5:02 AM EDT [facility] Citrated Rapid Teg Maximum Amplitude (TEGLYSIS) <40.0(L) 52.0 - 70.0 mm 10/26/2024 5:02 AM EDT [facility] Citrated Functional Fibrinogen Maximum Amplitude (TEGLYSIS) <4.0(L) 15.0 - 32.0 mm 10/26/2024 5:02 AM EDT [facility] Citrated Kaolin Percent Lysis (TEGLYSIS) 1.4 0.0 - 2.6 % 10/26/2024 5:02 AM EDT [facility] Whole Blood (Citrate) 10/26/2024 3:31 AM EDT 10/26/2024 3:40 AM EDT Eber Quinones MD LAB BLOOD ORDERABLES Fin al Result [facility] [address] [facility]. [address] * (ABNORMAL) CBC (10/26/2024 3:31 AM EDT) WBC 9.5 3.8 - 10.8 10E3/uL 10/26/2024 3:48 AM EDT [facility] RBC 3.68(L) 4.20 - 5.80 10E6/uL 10/26/2024 3:48 AM EDT [facility] Hemoglobin 11.5(L) 13.2 - 17.1 g/dL 10/26/2024 3:48 AM EDT [facility] Hematocrit 33.0(L) 38.5 - 50.0 % 10/26/2024 3:48 AM EDT [facility] MCV 89.6 80.0 - 100.0 fL 10/26/2024 3:48 AM EDT [facility] MCH 31.1 27.0 - 33.0 pg 10/26/2024 3:48 AM EDT [facility] MCHC 34.8 32.0 - 36.0 g/dL 10/26/2024 3:48 AM EDT [facility] RDW 19.3(H) 11.0 - 15.0 % 10/26/2024 3:48 AM EDT [facility] Platelets 67(L) 140 - 400 10E3/uL 10/26/2024 3:48 AM EDT [facility] MPV 7.9 7.5 - 11.5 fL 10/26/2024 3:48 AM EDT [facility] Whole Blood 10/26/2024 3:3 1 AM EDT 10/26/2024 3:40 AM EDT Eber Quinones MD LAB BLOOD ORDERABLES Fin al Result [facility] [address] [place] [address], [facility] * (ABNORMAL) Protime-INR (10/26/2024 3:31 AM EDT) Protime 27.0(H) 12.1 - 15.1 seconds 10/26/2024 3:51 AM EDT [facility] INR 2.4(H) 0.9 - 1.1 10/26/2024 3:51 AM EDT [facility] Comment: RECOMMENDED THERAPEUTIC RANGES USING INR : Stable oral anticoagulant therapy: 2.0 - 3.0 Mechanical prosthetic heart valve: 2.5 - 3.5 Recurrent acute myocardial infarction: 2.5 - 3.5 Plasma 10/26/2024 3:31 AM EDT 10/26/2024 3:40 AM EDT Eber Quinones MD LAB BLOOD ORDERABLES Fin al Result Performing Organization Address City/[facility]/ZIP Co de Phone Number [facility] [address] [facility]. [address] * (ABNORMAL) Fibrinogen (10/26/2024 3:31 AM EDT) Fibrinogen 104(L) 218 - 406 mg/dL 10/26/2024 3:56 AM EDT [facility] Plasma 10/26/2024 3:31 AM EDT 10/26/2024 3:40 AM EDT Result [facility] Eber Quinones MD LAB BLOOD ORDERABLES Fin al Result Performing Organization Address [facility] Co de Phone Number [facility] [address] [facility] * Transfuse Fresh Frozen Plasma (10/26/2024 3:16 AM EDT) Result [facility] us Ben Blake MD NURSING TREATMENT ORDERABLES - BLOOD ADMIN Final Result * Transfuse Fresh Frozen Plasma (10/26/2024 3:15 AM EDT) Result [facility] us Ben Blake MD NURSING TREATMENT ORDERABLES - BLOOD ADMIN Final Result * Transfuse RBC (10/26/2024 3:14 AM EDT) Result [facility] us Ben Blake MD NURSING [...] Frozen Plasma (10/26/2024 2:24 AM EDT) Result [facility] Ben Blake MD NURSING TREATMENT ORDERABLES - BLOOD ADMIN Final Result * Transfuse Fresh Frozen Plasma (10/26/2024 2:03 AM EDT) Result [facility] Ben Blake MD NURSING TREATMENT ORDERABLES - BLOOD ADMIN Final Result * Transfuse RBC (10/26/2024 2:01 AM EDT) Result [facility] Ben Blake MD NURSING TREATMENT ORDERABLES - BLOOD ADMIN Final Result * Transfuse RBC (10/26/2024 1:45 AM EDT) Result [facility] Ben Blake MD NURSING TREATMENT ORDERABLES - BLOOD ADMIN Final Result * Transfuse RBC (10/26/2024 1:45 AM EDT) Result [facility] Ben Blake MD NURSING TREATMENT ORDERABLES - BLOOD ADMIN Final Result * (ABNORMAL) POC INR (10/26/2024 1:43 AM EDT) [facility] Prothrombin Time INR, POC 1.9(H) 0.8 - [...] AM EDT 10/27/2024 6:51 AM EDT Result [facility] Semaj Mcnair III, MD POINT OF CARE TEST ORDERABLES Final Result [facility] [address] [place] [address], [facility] * Transfuse Fresh Frozen Plasma (10/26/2024 1:41 AM EDT) Result [facility] Ben Blake MD NURSING TREATMENT ORDERABLES - BLOOD ADMIN Final Result * Transfuse RBC (10/26/2024 1:40 AM EDT) Result [facility] Ben Blake MD NURSING TREATMENT ORDERABLES - BLOOD ADMIN Final Result * POC Sample Type (10/26/2024 1:40 AM EDT) POC Sample Type Arterial 10/26/2024 2:32 AM EDT [facility] Blood, Arterial 10/26/2024 1 :40 AM EDT 10/26/2024 2:32 AM EDT Semaj Mcnair III, MD POINT OF CARE TEST ORDERABLES Final Result [facility] [address] [facility]. [address] * POC Anion Gap (10/26/2024 1:40 AM EDT) Pathologist [facility] [place] POC Anion Gap, Arterial 13 3 - 16 mmol/L 10/26/2024 2:32 AM EDT [facility] Blood, Arterial 10/26/2024 1 :40 AM EDT 10/26/2024 2:32 AM EDT Semaj Mcnair III, MD POINT OF CARE TEST ORDERABLES Final Result Performing Organization Address City/[facility] Co de Phone Number [facility] [address] [facility]. [address] * POC Chloride (10/26/2024 1:40 AM EDT) Pathologist [facility] [place] POC Chloride 104 98 - 110 mmol/L 10/26/2024 2:32 AM EDT [facility] Blood, Arterial 10/26/2024 1 :40 AM EDT 10/26/2024 2:32 AM EDT Semaj Mcnair III, MD POINT OF CARE TEST ORDERABLES Final Result [facility] [address] [facility] * (ABNORMAL) POC Hemoglobin (10/26/2024 1:40 AM EDT) POC Hemoglobin 7.4(L) 14.0 - 18.0 g/dL 10/26/2024 2:32 AM EDT [facility] Blood, Arterial 10/26/2024 1 :40 AM EDT 10/26/2024 2:32 AM EDT us Semaj Mcnair III, MD POINT OF CARE TEST ORDERABLES Final Result Performing Organization Address City/[facility] Co de Phone Number [facility] [address] [facility]. [address] * (ABNORMAL) POC hematocrit (10/26/2024 1:40 AM EDT) [facility] POC Hematocrit 22.0(L) 40 - 52 % 10/26/2024 2:32 AM EDT [facility] Blood, Arterial 10/26/2024 1 :40 AM EDT 10/26/2024 2:32 AM EDT us Semaj Mcnair III, MD POINT OF CARE TEST ORDERABLES Final Result Performing Organization Address [facility] Co de Phone Number [facility] [address] [place] [address]. [address] * (ABNORMAL) POC Lactate (10/26/2024 1:40 AM EDT) [facility] POC Lactate 2.30(H) 0.50 - 2.20 mmol/L 10/26/2024 2:32 AM EDT [facility] Blood, Arterial 10/26/2024 1 :40 AM EDT 10/26/2024 2:32 AM EDT us Semaj Mcnair III, MD POINT OF CARE TEST ORDERABLES Final Result Performing Organization Address City/[facility] Co de Phone Number [facility] [address] [facility]. [address] * (ABNORMAL) POC Glucose (10/26/2024 1:40 AM EDT) POC Glucose, Arterial 116(H) 70 - 100 mg/dL 10/26/2024 2:32 AM EDT [facility] Blood, Arterial 10/26/2024 1 :40 AM EDT 10/26/2024 2:32 AM EDT us Semaj Mcnair III, MD POINT OF CARE TEST ORDERABLES Final Result Performing Organization Address City/[facility] Co de Phone Number [facility] [address] [place] [address]. [address] * (ABNORMAL) POC Ionized Calcium (10/26/2024 1:40 AM EDT) [facility] POC Ionized Calcium 4.10(L) 4.50 - 5.30 mg/dL 10/26/2024 2:32 AM EDT [facility] Blood, Arterial 10/26/2024 1 :40 AM EDT 10/26/2024 2:32 AM EDT us Semaj Mcnair III, MD POINT OF CARE TEST ORDERABLES Final Result Performing Organization Address [facility] de Phone Number [facility] [address] [place] [address]. [address] * (ABNORMAL) POC Potassium (10/26/2024 1:40 AM EDT) [facility] POC Potassium 2.6(LL) 3.5 - 5.3 mmol/L 10/26/2024 2:32 AM EDT [facility] Blood, Arterial 10/26/2024 1 :40 AM EDT 10/26/2024 2:32 AM EDT us Semaj Mcnair III, MD POINT OF CARE TEST ORDERABLES Final Result Performing Organization Address [facility] Co de Phone Number [facility] [address] [place] [address]. [address] * (ABNORMAL) POC Sodium (10/26/2024 1:40 AM EDT) POC Sodium 135(L) 136 - 146 mmol/L 10/26/2024 2:32 AM EDT [facility] Blood, Arterial 10/26/2024 1 :40 AM EDT 10/26/2024 2:32 AM EDT us Semaj Mcnair III, MD POINT OF CARE TEST ORDERABLES Final Result Performing Organization Address City/[facility]/ZIP Co de Phone Number [facility] [address] [place] [address]. [address] * (ABNORMAL) POC TCO2 (10/26/2024 1:40 AM EDT) POC TCO2, Arterial 19(L) 23 - 27 mmol/L 10/26/2024 2:32 AM EDT [facility] Blood, Arterial 10/26/2024 1 :40 AM EDT 10/26/2024 2:32 AM EDT us Semaj Mcnair III, MD POINT OF CARE TEST ORDERABLES Final Result Performing Organization Address [facility] Co de Phone Number [facility] [address] [place] [address]. [address] * (ABNORMAL) POC O2 SAT (10/26/2024 1:40 AM EDT) Pathologist [facility] [place] POC O2 Saturation, Arterial 99(H) 95 - 98 % 10/26/2024 2:32 AM EDT [facility] Blood, Arterial 10/26/2024 1 :40 AM EDT 10/26/2024 2:32 AM EDT us Semaj Mcnair III, MD POINT OF CARE TEST ORDERABLES Final Result Performing Organization Address City/[facility] Co de Phone Number [facility] [address] [facility]. [address] * (ABNORMAL) POC Base Excess (10/26/2024 1:40 AM EDT) POC Base Excess, Arterial -7(L) -2 - 3 mmol/L 10/26/2024 2:32 AM EDT [facility] Blood, Arterial 10/26/2024 1 :40 AM EDT 10/26/2024 2:32 AM EDT us Semaj Mcnair III, MD POINT OF CARE TEST ORDERABLES Final Result Performing Organization Address City/[facility] Co de Phone Number [facility] [address] [place] [address]. [address] * (ABNORMAL) POC HCO3 (10/26/2024 1:40 AM EDT) POC HCO3, Arterial 18(L) 22 - 26 mmol/L 10/26/2024 2:32 AM EDT [facility] Blood, Arterial 10/26/2024 1 :40 AM EDT 10/26/2024 2:32 AM EDT us Semaj Mcnair III, MD POINT OF CARE TEST ORDERABLES Final Result Performing Organization Address [facility] Co de Phone Number [facility] [address] [place] [address]. [address] * (ABNORMAL) POC PO2 (10/26/2024 1:40 AM EDT) POC pO2, Arterial 145(H) 80 - 100 mm Hg 10/26/2024 2:32 AM EDT [facility] Blood, Arterial 10/26/2024 1 :40 AM EDT 10/26/2024 2:32 AM EDT us Semaj Mcnair III, MD POINT OF CARE TEST ORDERABLES Final Result Performing Organization Address [facility] Co de Phone Number [facility] [address] [place] [address]. [address] * (ABNORMAL) POC PCO2 (10/26/2024 1:40 AM EDT) POC pCO2, Arterial 33(L) 35 - 45 mm Hg 10/26/2024 2:32 AM EDT [facility] Blood, Arterial 10/26/2024 1 :40 AM EDT 10/26/2024 2:32 AM EDT us Semaj Mcnair III, MD POINT OF CARE TEST ORDERABLES Final Result Performing Organization Address City/[facility] Co de Phone Number [facility] [address] [facility]. [address] * POC pH (10/26/2024 1:40 AM EDT) POC pH, Arterial 7.35 7.35 - 7.45 10/26/2024 2:32 AM EDT [facility] Blood, Arterial 10/26/2024 1 :40 AM EDT 10/26/2024 2:32 AM EDT Semaj Mcnair III, MD POINT OF CARE TEST ORDERABLES Final Result Performing Organization Address City/[facility] Co de Phone Number [facility] [address] [facility]. [address] * Transfuse Fresh Frozen Plasma (10/26/2024 1:20 AM EDT) us Ben Blake MD NURSING TREATMENT ORDERABLES - BLOOD ADMIN Final Result * Transfuse RBC (10/26/2024 12:56 AM EDT) Ben Blake MD NURSING TREATMENT ORDERABLES - BLOOD ADMIN Final Result * (ABNORMAL) POC INR (10/26/2024 12:41 AM EDT) Prothrombin Time INR, POC 2.0(H) 0.8 - 1.4 10/27/2024 6:51 AM EDT [facility] Comment: Test results may vary [...] TEST ORDERABLES Final Result Performing Organization Address City/[facility] Co de Phone Number [facility] [address] * POC Sample Type (10/26/2024 12:39 AM EDT) POC Sample Type Arterial 10/26/2024 1:38 AM EDT [facility] Blood, Arterial 10/26/2024 1 2:39 AM EDT 10/26/2024 1:38 AM EDT us Semaj Mcnair III, MD POINT OF CARE TEST ORDERABLES Final Result Performing Organization Address [facility] Co de Phone Number [facility] [address] [facility]. [address] * POC Anion Gap (10/26/2024 12:39 AM EDT) Pathologist [facility] [place] POC Anion Gap, Arterial 13 3 - 16 mmol/L 10/26/2024 1:38 AM EDT [facility] Blood, Arterial 10/26/2024 1 2:39 AM EDT 10/26/2024 1:38 AM EDT us Semaj Mcnair III, MD POINT OF CARE TEST ORDERABLES Final Result Performing Organization Address City/[facility] Co de Phone Number [facility] [address] [facility]. [address] * POC Chloride (10/26/2024 12:39 AM EDT) Pathologist [facility] [place] POC Chloride 103 98 - 110 mmol/L 10/26/2024 1:38 AM EDT [facility] Blood, Arterial 10/26/2024 1 2:39 AM EDT 10/26/2024 1:38 AM EDT us Semaj Mcnair III, MD POINT OF CARE TEST ORDERABLES Final Result Performing Organization Address [facility] Co de Phone Number [facility] [address] [facility]. [address] * (ABNORMAL) POC Hemoglobin (10/26/2024 12:39 AM EDT) POC Hemoglobin 7.9(L) 14.0 - 18.0 g/dL 10/26/2024 1:38 AM EDT [facility] Blood, Arterial 10/26/2024 1 2:39 AM EDT 10/26/2024 1:38 AM EDT us Semaj Mcnair III, MD POINT OF CARE TEST ORDERABLES Final Result Performing Organization Address [facility] Co de Phone Number [facility] [address] [facility]. [address] * (ABNORMAL) POC hematocrit (10/26/2024 12:39 AM EDT) Pathologist [facility] [place] POC Hematocrit 23.0(L) 40 - 52 % 10/26/2024 1:38 AM EDT [facility] Blood, Arterial 10/26/2024 1 2:39 AM EDT 10/26/2024 1:38 AM EDT us Semaj Mcnair III, MD POINT OF CARE TEST ORDERABLES Final Result Performing Organization Address City/[facility] Co de Phone Number [facility] [address] [facility]. [address] * POC Lactate (10/26/2024 12:39 AM EDT) POC Lactate 1.39 0.50 - 2.20 mmol/L 10/26/2024 1:38 AM EDT [facility] Blood, Arterial 10/26/2024 1 2:39 AM EDT 10/26/2024 1:38 AM EDT Semaj Mcnair III, MD POINT OF CARE TEST ORDERABLES Final Result Performing Organization Address [facility] Co de Phone Number [facility] [address] [facility]. [address] * (ABNORMAL) POC Glucose (10/26/2024 12:39 AM EDT) POC Glucose, Arterial 116(H) 70 - 100 mg/dL 10/26/2024 1:38 AM EDT [facility] Blood, Arterial 10/26/2024 1 2:39 AM EDT 10/26/2024 1:38 AM EDT Semaj Mcnair III, MD POINT OF CARE TEST ORDERABLES Final Result Performing Organization Address [facility] de Phone Number [facility] [address] [facility]. [address] * (ABNORMAL) POC Ionized Calcium (10/26/2024 12:39 AM EDT) POC Ionized Calcium 4.30(L) 4.50 - 5.30 mg/dL 10/26/2024 1:38 AM EDT [facility] Blood, Arterial 10/26/2024 1 2:39 AM EDT 10/26/2024 1:38 AM EDT Semaj Mcnair III, MD POINT OF CARE TEST ORDERABLES Final Result Performing Organization Address [facility] Co de Phone Number [facility] [address] [facility]. [address] * (ABNORMAL) POC Potassium (10/26/2024 12:39 AM EDT) POC Potassium 2.4(LL) 3.5 - 5.3 mmol/L 10/26/2024 1:38 AM EDT [facility] Blood, Arterial 10/26/2024 1 2:39 AM EDT 10/26/2024 1:38 AM EDT us Seamj Mcnair III, MD POINT OF CARE TEST ORDERABLES Final Result Performing Organization Address City/[facility] Co de Phone Number [facility] [phone] * POC Sodium (10/26/2024 12:39 AM EDT) POC Sodium 136 136 - 146 mmol/L 10/26/2024 1:38 AM EDT [facility] Blood, Arterial 10/26/2024 1 2:39 AM EDT 10/26/2024 1:38 AM EDT us Semaj Mcnair III, MD POINT OF CARE TEST ORDERABLES Final Result Performing Organization Address [facility] Co de Phone [facility] [facility] [address] [facility]. [address] * (ABNORMAL) POC TCO2 (10/26/2024 12:39 AM EDT) POC TCO2, Arterial 21(L) 23 - 27 mmol/L 10/26/2024 1:38 AM EDT [facility] Blood, Arterial 10/26/2024 1 2:39 AM EDT 10/26/2024 1:38 AM EDT Semaj Mcnair III, MD POINT OF CARE TEST ORDERABLES Final Result Performing Organization Address City/[facility] Co de Phone Number [facility] [address] [facility]. [address] * POC O2 SAT (10/26/2024 12:39 AM EDT) POC O2 Saturation, Arterial 98 95 - 98 % 10/26/2024 1:38 AM EDT [facility] Blood, Arterial 10/26/2024 1 2:39 AM EDT 10/26/2024 1:38 AM EDT Semaj Mcnair III, MD POINT OF CARE TEST ORDERABLES Final Result Performing Organization Address [facility] Co de Phone Number [facility] [address] [facility]. [address] * (ABNORMAL) POC Base Excess (10/26/2024 12:39 AM EDT) POC Base Excess, Arterial -7(L) -2 - 3 mmol/L 10/26/2024 1:38 AM EDT [facility] Blood, Arterial 10/26/2024 1 2:39 AM EDT 10/26/2024 1:38 AM EDT Semaj Mcnair III, MD POINT OF CARE TEST ORDERABLES Final Result Performing Organization Address [facility] de Phone Number [address] [facility]. [address] * (ABNORMAL) POC HCO3 (10/26/2024 12:39 AM EDT) POC HCO3, Arterial 20(L) 22 - 26 mmol/L 10/26/2024 1:38 AM EDT [facility] Blood, Arterial 10/26/2024 1 2:39 AM EDT 10/26/2024 1:38 AM EDT Semaj Mcnair III, MD POINT OF CARE TEST ORDERABLES Final Result Performing Organization Address [facility] Co de Phone Number [place] [address] [facility]. [address] * (ABNORMAL) POC PO2 (10/26/2024 12:39 AM EDT) POC pO2, Arterial 117(H) 80 - 100 mm Hg 10/26/2024 1:38 AM EDT [facility] Blood, Arterial 10/26/2024 1 2:39 AM EDT 10/26/2024 1:38 AM EDT us Semaj Mcnair III, MD POINT OF CARE TEST ORDERABLES Final Result Performing Organization Address City/[facility]/ZIP Co de Phone Number [facility] [address] [facility]. [address] * (ABNORMAL) POC PCO2 (10/26/2024 12:39 AM EDT) POC pCO2, Arterial 46(H) 35 - 45 mm Hg 10/26/2024 1:38 AM EDT [facility] Blood, Arterial 10/26/2024 1 2:39 AM EDT 10/26/2024 1:38 AM EDT Result [facility] Semaj Mcnair III, MD POINT OF CARE TEST ORDERABLES Final Result Performing Organization Address [facility] Co de Phone Number [facility] [address] [facility]. [address] * (ABNORMAL) POC pH (10/26/2024 12:39 AM EDT) POC pH, Arterial 7.24(L) 7.35 - 7.45 10/26/2024 1:38 AM EDT [facility] Blood, Arterial 10/26/2024 1 2:39 AM EDT 10/26/2024 1:38 AM EDT Result [facility] Semaj Mcnair III, MD POINT OF CARE TEST ORDERABLES Final Result Performing Organization Address [facility] Co de Phone Number [facility] [address] [facility]. [address] * Transfuse Platelets (10/26/2024 12:37 AM [...] AM EDT) Gram Stain Result Cytospin Results: [facility] Gram Stain Result Polymorphonuclear Leukocytes Seen; [facility] Gram Stain Result No Organisms Seen; [facility] Culture Result No Growth After 3 Days [facility] Surgical Swab ABDOMEN / Unknown 12:03 AM EDT Comment:2.) Ascites Anaerobhic culture Fungus culture Routine culture plus stain Narrative [facility] - 10/28/2024 9:38 PM EDT 2.) Ascites Anaerobhic culture Fungus culture Routine culture plus stain 2.) Ascites Semaj Mcnair III, MD MICROBIOLOGY - [facility] ORDERABLES Final Result Performing Organization Address City/State/[facility] Co de Phone Number [facility] [address] * Surgical Pathology Exam (10/26/2024 12:00 AM EDT) 10/26/2024 10/27/2024 Narrative [facility] - 10/26/2024 12:00 AM EDT CASE: [id number] PATIENT: BLAIR GILBERT Clinical History: Liver - kidney transplant Pre-Operative Diagnosis: Alcoholic cirrhosis of liver Post-Operative Diagnosis: Alcoholic cirrhosis of liver Specimen(s) Submitted: [facility] CPT Code(s): 61836 X 1; 11154 X 5 Additional Information: FINAL DIAGNOSIS: A. 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 - Negative for neoplasm. - Increased hepatocellular iron deposition (3+; Modified Scheuer). Gall bladder: -Intramucosal and submucosal vascular congestion and hemorrhage. - Negative for dysplasia or malignancy. Gross Description: Received in formalin, labeled Blair Gilbert [facility] , is a 2338-gram, hepatectomy specimen [...] discrete masses or other lesions are identified. Delivery Professional sections are submitted in cassettes [id number] as follows: A1: Hilar margins, en face. [...] Pathologist signing this report is located at [facility], [address] [place] [address], [id number], , [place] ID: [id number] us Semaj Mcnair III, MD PATHOLOGY/CYTOLOGY ORDERABLES Final Result Performing Organization Address City/[facility]/ZIP Co de Phone Number [facility] * Transfuse Fresh Frozen Plasma (10/25/2024 11:47 PM EDT) Ben Blake MD NURSING TREATMENT ORDERABLES - BLOOD ADMIN Final Result * Transfuse RBC (10/25/2024 11:45 PM EDT) Ben Blake MD NURSING TREATMENT ORDERABLES - BLOOD ADMIN Final Result * Transfuse RBC (10/25/2024 11:45 PM EDT) Result [facility] Ben Blake MD NURSING [...] POINT OF CARE TEST ORDERABLES Final Result [facility] [address] * POC Sample Type (10/25/2024 11:40 PM EDT) POC Sample Type Arterial 10/25/2024 11:57 PM EDT [facility] Blood, Arterial 10/25/2024 1 1:40 PM EDT 10/25/2024 11:57 PM EDT us Semaj Mcnair III, MD POINT OF CARE TEST ORDERABLES Final Result Performing Organization Address City/[facility] Co de Phone Number [facility] [address]. [address] * POC Anion Gap (10/25/2024 11:40 PM EDT) POC Anion Gap, Arterial 13 3 - 16 mmol/L 10/25/2024 11:57 PM EDT [facility] Blood, Arterial 10/25/2024 1 1:40 PM EDT 10/25/2024 11:57 PM EDT us Semaj Mcnair III, MD POINT OF CARE TEST ORDERABLES Final Result Performing Organization Address [facility] Co de Phone Number [facility] [address]. [address] * POC Chloride (10/25/2024 11:40 PM EDT) POC Chloride 102 98 - 110 mmol/L 10/25/2024 11:57 PM EDT [facility] Blood, Arterial 10/25/2024 1 1:40 PM EDT 10/25/2024 11:57 PM EDT us Semaj Mcnair III, MD POINT OF CARE TEST ORDERABLES Final Result Performing Organization Address City/[facility] Co de Phone Number [facility] [address]. [address] * (ABNORMAL) POC Hemoglobin (10/25/2024 11:40 PM EDT) POC Hemoglobin 6.6(L) 14.0 - 18.0 g/dL 10/25/2024 11:57 PM EDT [facility] Blood, Arterial 10/25/2024 1 1:40 PM EDT 10/25/2024 11:57 PM EDT us Semaj Mcnair III, MD POINT OF CARE TEST ORDERABLES Final Result [facility] [address] [address] * (ABNORMAL) POC hematocrit (10/25/2024 11:40 PM EDT) POC Hematocrit 19.0(L) 40 - 52 % 10/25/2024 11:57 PM EDT [facility] Blood, Arterial 10/25/2024 1 1:40 PM EDT 10/25/2024 11:57 PM EDT Semaj Mcnair III, MD POINT OF CARE TEST ORDERABLES Final Result Performing Organization Address City/[facility]/ZIP Co de Phone Number [address] * POC Lactate (10/25/2024 11:40 PM EDT) POC Lactate 1.36 0.50 - 2.20 mmol/L 10/25/2024 11:57 PM EDT [facility] Blood, Arterial 10/25/2024 1 1:40 PM EDT 10/25/2024 11:57 PM EDT us Semaj Mcnair III, MD POINT OF CARE TEST ORDERABLES Final Result Performing Organization Address City/[facility]/ZIP Co de Phone Number [address] [facility]. [address] * (ABNORMAL) POC Glucose (10/25/2024 11:40 PM EDT) POC Glucose, Arterial 101(H) 70 - 100 mg/dL 10/25/2024 11:57 PM EDT [facility] Blood, Arterial 10/25/2024 1 1:40 PM EDT 10/25/2024 11:57 PM EDT us Semaj Mcnair III, MD POINT OF CARE TEST ORDERABLES Final Result Performing Organization Address City/[facility]/ZIP Co de Phone Number [facility] [address] Center[facility]za [facility]. [address] * POC Ionized Calcium (10/25/2024 11:40 PM EDT) POC Ionized Calcium 4.50 4.50 - 5.30 mg/dL 10/25/2024 11:57 PM EDT [facility] Blood, Arterial 10/25/2024 1 1:40 PM EDT 10/25/2024 11:57 PM EDT Semaj Mcnair III, MD POINT OF CARE TEST ORDERABLES Final Result Performing Organization Address [facility] Co de Phone Number [facility] [address] [place] [address]. [address] * (ABNORMAL) POC Potassium (10/25/2024 11:40 PM EDT) Pathologist [facility] POC Potassium 1.9(LL) 3.5 - 5.3 mmol/L 10/25/2024 11:57 PM EDT [facility] Blood, Arterial 10/25/2024 1 1:40 PM EDT 10/25/2024 11:57 PM EDT us Semaj Mcnair III, MD POINT OF CARE TEST ORDERABLES Final Result Performing Organization Address City/[facility] Co de Phone Number [facility] [address] CenterMaritza [facility]. [address] * (ABNORMAL) POC Sodium (10/25/2024 11:40 PM EDT) Pathologist [facility] POC Sodium 135(L) 136 - 146 mmol/L 10/25/2024 11:57 PM EDT [facility] Blood, Arterial 10/25/2024 1 1:40 PM EDT 10/25/2024 11:57 PM EDT us Semaj Mcnair III, MD POINT OF CARE TEST ORDERABLES Final Result [facility] [address] [facility]. [address] * (ABNORMAL) POC TCO2 (10/25/2024 11:40 PM EDT) POC TCO2, Arterial 21(L) 23 - 27 mmol/L 10/25/2024 11:57 PM EDT [facility] Blood, Arterial 10/25/2024 1 1:40 PM EDT 10/25/2024 11:57 PM EDT us Semaj Mcnair III, MD POINT OF CARE TEST ORDERABLES Final Result Performing Organization Address City/[facility] Co de Phone Number [facility] [address] [facility]. [address] * POC O2 SAT (10/25/2024 11:40 PM EDT) POC O2 Saturation, Arterial 98 95 - 98 % 10/25/2024 11:57 PM EDT [facility] Blood, Arterial 10/25/2024 1 1:40 PM EDT 10/25/2024 11:57 PM EDT us Semaj Mcnair III, MD POINT OF CARE TEST ORDERABLES Final Result Performing Organization Address City/[facility]/ZIP Co de Phone Number [facility] [address] [facility]. [address] * (ABNORMAL) POC Base Excess (10/25/2024 11:40 PM EDT) POC Base Excess, Arterial -6(L) -2 - 3 mmol/L 10/25/2024 11:57 PM EDT [facility] Blood, Arterial 10/25/2024 1 1:40 PM EDT 10/25/2024 11:57 PM EDT us Semaj Mcnair III, MD POINT OF CARE TEST ORDERABLES Final Result Performing Organization Address City/[facility]/ZIP Co de Phone Number [facility] [address] * (ABNORMAL) POC HCO3 (10/25/2024 11:40 PM EDT) POC HCO3, Arterial 20(L) 22 - 26 mmol/L 10/25/2024 11:57 PM EDT [facility] Blood, Arterial 10/25/2024 1 1:40 PM EDT 10/25/2024 11:57 PM EDT Semaj Mcnair III, MD POINT OF CARE TEST ORDERABLES Final Result Performing Organization Address [facility] Co de Phone Number [facility] [address] * (ABNORMAL) POC PO2 (10/25/2024 11:40 PM EDT) POC pO2, Arterial 107(H) 80 - 100 mm Hg 10/25/2024 11:57 PM EDT [facility] Blood, Arterial 10/25/2024 1 1:40 PM EDT 10/25/2024 11:57 PM EDT Semaj Mcnair III, MD POINT OF CARE TEST ORDERABLES Final Result Performing Organization Address [facility]/ZIP Co de Phone Number [facility] [address] [facility]. [address] * POC PCO2 (10/25/2024 11:40 PM EDT) POC pCO2, Arterial 41 35 - 45 mm Hg 10/25/2024 11:57 PM EDT [facility] Blood, Arterial 10/25/2024 1 1:40 PM EDT 10/25/2024 11:57 PM EDT Semaj Mcnair III, MD POINT OF CARE TEST ORDERABLES Final Result [facility] [address] * (ABNORMAL) POC pH (10/25/2024 11:40 PM EDT) POC pH, Arterial 7.29(L) 7.35 - 7.45 10/25/2024 11:57 PM EDT [facility] Blood, Arterial 10/25/2024 1 1:40 PM EDT 10/25/2024 11:57 PM EDT Semaj Mcnair III, MD POINT OF CARE TEST ORDERABLES Final Result Performing Organization Address [facility] Co de Phone Number [facility] Aleisha Salas [facility]. [address] * Urine culture (10/25/2024 11:08 PM EDT) Culture Result <1,000 cfu/mL [facility] Culture Result Skin/Urogeni rony Mckayla. No Further Workup. [facility] Newly Placed Berkowitz Urine URINE SPECIMEN / Unknown 10/25/2024 11:08 PM EDT Comment:urine culture Narrative [facility] - 10/28/2024 9:59 AM EDT urine culture urine culture Semaj Mcnair III, MD MICROBIOLOGY - GENE RAL ORDERABLES Final Result Performing Organization Address [facility] Co de Phone Number [facility] Aleisha Salas [facility]. [address] * X-ray Portable Chest (10/25/2024 10:19 [...] - 2.2 mmol/L 10/25/2024 10:39 PM EDT [facility] Plasma 10/25/2024 10:1 7 PM EDT 10/25/2024 10:17 PM EDT Ben Blake MD LAB BLOOD ORDERABLES Final Re sult [facility] [address] * (ABNORMAL) Ferritin (10/25/2024 10:17 PM EDT) Ferritin 623.2(H) 23.9 - 336.2 ng/mL 10/25/2024 11:02 PM EDT [facility] Serum 10/25/2024 10:1 7 PM EDT 10/25/2024 10:17 PM EDT Leandra Og MD LAB BLOOD ORDERABLES F inal Result Performing Organization Address City/[facility]/ZIP Co de Phone Number [facility] [address] * Iron Studies (Iron + TIBC) (10/25/2024 10:17 PM EDT) Iron 128 50 - 212 ug/dL 10/25/2024 10:44 PM EDT [facility] % Iron Saturation SEE COMMENT 15.0 - 55.0 % 10/25/2024 10:44 PM EDT [facility] Comment:Unable to calculate result because contributing result outside reportable range.. TIBC SEE COMMENT 261 - 462 ug/dL 10/25/2024 10:44 PM EDT [facility] Comment:Unable to calculate result because contributing result outside reportable range.. Serum 10/25/2024 10:1 7 PM EDT 10/25/2024 10:17 PM EDT Leandra Og MD LAB BLOOD ORDERABLES F inal Result [facility] [address] [facility]. [address] * PTH (10/25/2024 10:17 PM EDT) PTH 36.0 12.0 - 88.0 pg/mL 10/25/2024 11:01 PM EDT [facility] Serum 10/25/2024 10:1 7 PM EDT 10/25/2024 10:17 PM EDT us Leandra Og MD LAB BLOOD ORDERABLES F inal Result [facility] [address] * HIV 1+2 Antibody/Antigen with Reflex (10/25/2024 10:17 PM EDT) HIV 1+2 AB/AGN Nonreactive Nonreactive 10/25/2024 11:03 PM EDT [facility] Serum 10/25/2024 10:1 7 PM EDT 10/25/2024 10:16 PM EDT Narrative [facility] - 10/25/2024 11:03 PM EDT \HIVRNR us Leandra Og MD LAB BLOOD ORDERABLES F inal Result [facility] [address] [employer] [facility]. [address] * Hepatitis B Core Antibody (10/25/2024 10:17 PM EDT) Hep B Core Total Ab Nonreactive Nonreactive 10/25/2024 11:07 PM EDT [facility] Comment:Health Department no tified [...] MD LAB BLOOD ORDERABLES F inal Result [facility] [address] * Hepatitis C Antibody (10/25/2024 10:17 PM EDT) HCV Ab Nonreactive Nonreactive 10/25/2024 11:16 PM EDT [facility] Comment:Health Department no tified in accordance with reportable infectious disease guidelines. Serum 10/25/2024 10:1 7 PM EDT 10/25/2024 10:17 PM EDT Narrative [facility] - 10/25/2024 11:16 PM EDT Antibodies to HCV not detected; does not exclude the possibility of exposure to HCV. us Leandra Og MD LAB BLOOD ORDERABLES F inal Result Performing Organization Address City/[facility] Co de Phone Number [facility] [address] [place] [address]. [address] * (ABNORMAL) Hepatitis B Surface Antibody, Quantitati (10/25/2024 10:17 PM EDT) HBSAB NUMBER 10.70(H) 0.00 - 9.99 mIU/mL 10/25/2024 11:52 PM EDT [facility] Hep B S Ab Equivocal (A) Nonreactive 10/25/2024 11:52 PM EDT [facility] Serum 10/25/2024 10:1 7 PM EDT 10/25/2024 10:17 PM EDT Leandra Og MD LAB BLOOD ORDERABLES F inal Result [facility] [address] [facility]. [address] * Hepatitis B surface antigen (10/25/2024 10:17 PM EDT) Hep B Surface Ag Nonreactive Nonreactive 10/25/2024 11:12 PM EDT [facility] Comment:Health Department no tified in accordance with reportable infectious disease guidelines. Serum 10/25/2024 10:1 7 PM EDT 10/25/2024 10:17 PM EDT [facility] - 10/25/2024 11:12 PM EDT Specimen is considered negative for HBsAg. us Leandra Og MD LAB BLOOD ORDERABLES F inal Result Performing Organization Address City/[facility] Co de Phone Number [facility] [address] [facility]. [address] * Hepatitis A Antibody Total (10/25/2024 10:17 PM EDT) Pathologist [facility] Anti-HAV Total (IgG + IgM) Nonreactive 10/25/2024 11:13 PM EDT [facility] Serum 10/25/2024 10:1 7 PM EDT 10/25/2024 10:17 PM EDT [facility] - 10/25/2024 11:13 PM EDT HAV antibodies not detected Leandra Og MD LAB BLOOD ORDERABLES F inal Result Performing Organization Address [facility] de Phone Number [facility] [address] [facility]. [address] * (ABNORMAL) Hepatic Function Panel (10/25/2024 10:17 PM EDT) Pathologist [facility] Total Bilirubin 9.1(H) 0.0 - 1.5 mg/dL 10/25/2024 10:47 PM EDT [facility] Bilirubin, Direct 4.58(H) 0.00 - 0.40 mg/dL 10/25/2024 10:47 PM EDT [facility] AST 51(H) 13 - 39 U/L 10/25/2024 10:47 PM EDT [facility] ALT 23 7 - 52 U/L 10/25/2024 10:47 PM EDT [facility] Alkaline Phosphatase 144(H) 36 - 125 U/L 10/25/2024 10:47 PM EDT [facility] Total Protein 5.5(L) 6.4 - 8.9 g/dL 10/25/2024 10:47 PM EDT [facility] Albumin 3.5 3.5 - 5.7 g/dL 10/25/2024 10:47 PM EDT [facility] Bilirubin, Indirect 4.52(H) 0.00 - 1.10 mg/dL 10/25/2024 10:47 PM EDT [facility] Plasma 10/25/2024 10:1 7 PM EDT 10/25/2024 10:17 PM EDT us Leandra Og MD LAB BLOOD ORDERABLES F inal Result [facility] [address] [place], [place] [address] * (ABNORMAL) Renal Function Panel w/EGFR (10/25/2024 10:17 PM EDT) Sodium 137 133 - 146 mmol/L 10/25/2024 10:47 PM EDT [facility] Potassium 2.1(LL) 3.5 - 5.3 mmol/L 10/25/2024 10:47 PM EDT [facility] Comment:Critical Result K:2. 1 Called to and read back by: ALICIA CARCAMO RN at: 10/25/2024 22:47:45 by:NANCY Chloride 100 98 - 110 mmol/L 10/25/2024 10:47 PM EDT [facility] CO2 20(L) 21 - 33 mmol/L 10/25/2024 10:47 PM EDT [facility] Anion Gap 17(H) 3 - 16 mmol/L 10/25/2024 10:47 PM EDT [facility] BUN 74(H) 7 - 25 mg/dL 10/25/2024 10:47 PM EDT [facility] Creatinine 3.87(H) 0.60 - 1.30 mg/dL 10/25/2024 10:47 PM EDT [facility] Glucose 114(H) 70 - 100 mg/dL 10/25/2024 10:47 PM EDT [facility] Calcium 9.3 8.6 - 10.3 mg/dL 10/25/2024 10:47 PM EDT [facility] Phosphorus 5.9(H) 2.1 - 4.7 mg/dL 10/25/2024 10:47 PM EDT [facility] Albumin 3.5 3.5 - 5.7 g/dL 10/25/2024 10:47 PM EDT [facility] Osmolality, Calculated 307(H) 278 - 305 mOsm/kg 10/25/2024 10:47 PM EDT [facility] EGFR 19 10/25/2024 10:47 PM EDT [facility] Comment:As of 2021, the [...] ORDERABLES F inal Result Performing Organization Address [facility] Co de Phone Number [facility] [address] * (ABNORMAL) APTT, NO ANTICOAGULANT (10/25/2024 10:17 PM EDT) aPTT 41.7(H) 25.5 - 35.0 seconds 10/25/2024 10:36 PM EDT [facility] Plasma 10/25/2024 10:1 7 PM EDT 10/25/2024 10:17 PM EDT Leandra Og MD LAB BLOOD ORDERABLES F inal Result Performing Organization Address City/[facility]/ZIP Co de Phone Number [facility] [address] * (ABNORMAL) Protime-INR (10/25/2024 10:17 PM EDT) [...] MD LAB BLOOD ORDERABLES F inal Result [facility] [address] * (ABNORMAL) Differential (10/25/2024 10:17 PM EDT) Pathologist [facility] [place] Differential Comments See Note 10/25/2024 10:54 PM EDT [facility] Comment: _Platelets Appear Decreased _Platelet Morphology Normal Scan Result PERFORMED 10/25/2024 10:54 PM EDT [facility] Neutrophils Relative 79.8 40.0 - 80.0 % 10/25/2024 10:54 PM EDT [facility] Lymphocytes Relative 9.6(L) 15.0 - 45.0 % 10/25/2024 10:54 PM EDT [facility] Monocytes Relative 8.9 0.0 - 12.0 % 10/25/2024 10:54 PM EDT [facility] Eosinophils Relative 1.3 0.0 - 8.0 % 10/25/2024 10:54 PM EDT [facility] Basophils Relative 0.4 0.0 - 1.0 % 10/25/2024 10:54 PM EDT [facility] nRBC 0 0 - 0 /100 WBC 10/25/2024 10:54 PM EDT [facility] Neutrophils Absolute 4,948 1,520 - 8,640 /uL 10/25/2024 10:54 PM EDT [facility] Lymphocytes Absolute 595 570 - 4,860 /uL 10/25/2024 10:54 PM EDT [facility] Monocytes Absolute 552 0 - 1,296 /uL 10/25/2024 10:54 PM EDT [facility] Eosinophils Absolute 81 0 - 864 /uL 10/25/2024 10:54 PM EDT [facility] Basophils Absolute 25 0 - 108 /uL 10/25/2024 10:54 PM EDT [facility] PLT Morphology Platelet morphology appears normal 10/25/2024 10:54 PM EDT [facility] Whole Blood 10/25/2024 10:1 7 PM EDT 10/25/2024 10:17 PM EDT us Leandra Og MD LAB BLOOD ORDERABLES F inal Result [facility] [address] * (ABNORMAL) CBC (10/25/2024 10:17 PM EDT) WBC 6.2 3.8 - 10.8 10E3/uL 10/25/2024 10:54 PM EDT [facility] RBC 2.40(L) 4.20 - 5.80 10E6/uL 10/25/2024 10:54 PM EDT [facility] Hemoglobin 8.3(L) 13.2 - 17.1 g/dL 10/25/2024 10:54 PM EDT [facility] Hematocrit 23.7(L) 38.5 - 50.0 % 10/25/2024 10:54 PM EDT [facility] MCV 98.9 80.0 - 100.0 fL 10/25/2024 10:54 PM EDT [facility] MCH 34.6(H) 27.0 - 33.0 pg 10/25/2024 10:54 PM EDT [facility] MCHC 35.0 32.0 - 36.0 g/dL 10/25/2024 10:54 PM EDT [facility] RDW 17.8(H) 11.0 - 15.0 % 10/25/2024 10:54 PM EDT [facility] Platelets 56(L) 140 - 400 10E3/uL 10/25/2024 10:54 PM EDT [facility] Comment: Specimen checked for clots. None detected. Slide Reviewed for PLT Clumps. None Seen. Platelet Estimate Decreased 10/25/2024 10:54 PM EDT [facility] MPV 8.1 7.5 - 11.5 fL 10/25/2024 10:54 PM EDT [facility] Whole Blood 10/25/2024 10:1 7 PM EDT 10/25/2024 10:17 PM EDT Narrative [facility] - 10/25/2024 10:54 PM EDT Peripheral blood smear was scanned per review criteria approved by the laboratory medical massage therapist. Leandra Og MD LAB BLOOD ORDERABLES F inal Result Performing Organization Address [facility]UST de Phone Number [facility] [address] [place] [address] * Donor Specific Antibody (DSA) (10/25/2024 10:00 PM EDT) [facility] Signature AntiDonor Antibodies The request and specimen(s) for this test have been received and transported to the [facility] at [address] [place] [address]. The [facility] will report results directly to the client. 10/25/2024 10:20 PM EDT [facility] Comment:Testing performed by [facility], [address] [place] [address]. The [facility] report has been forwarded to the appropriate ordering location. Please refer to this report for patient results. Serum 10/25/2024 10:0 0 PM EDT 10/25/2024 10:20 PM EDT Leandra Og MD LAB BLOOD ORDERABLES F inal Result Performing Organization Address [facility] Co de Phone Number [facility] [address] [place] [address] * (ABNORMAL) Venous Blood Gas, Line/Syringe (10/25/2024 10:00 PM EDT) PH-Line Draw 7.38 7.32 - 7.42 10/25/2024 10:08 PM EDT [facility] PCO2-Line Draw 33(L) 41 - 51 mm Hg 10/25/2024 10:08 PM EDT [facility] PO2-Line Draw 33 25 - 40 mm Hg 10/25/2024 10:08 PM EDT [facility] HCO3-Line Draw 20(L) 24 - 28 mmol/L 10/25/2024 10:08 PM EDT [facility] CO2 Content-Line Draw 21(L) 25 - 29 mmol/L 10/25/2024 10:08 PM EDT [facility] Base Excess-Line Draw -5.0(L) -2.0 - 3.0 mmol/L 10/25/2024 10:08 PM EDT [facility] %HBO2-Line Draw 53.8 40.0 - 70.0 % 10/25/2024 10:08 PM EDT [facility] Carboxyhgb-Ludivina e Draw 1.9 % 10/25/2024 10:08 PM EDT [facility] Comment: CARBOXYHEMOGLOBIN (CO) REFERENCE RANGES: Non-Smokers: <2 % Smokers: <8 % TOXIC: >20 % Methemoglobin- Line Draw 0.2 0.0 - 1.5 % 10/25/2024 10:08 PM EDT [facility] Reduced Hemoglobin-Ludivina e Draw 44.1(H) 0.0 - 5.0 % 10/25/2024 10:08 PM EDT [facility] Venous, Line Draw 10/25/2024 10:00 PM EDT 10/25/2024 10:04 PM EDT us Leandra Og MD LAB BLOOD ORDERABLES F inal Result [facility] [address] [place] [address], [facility] * (ABNORMAL) POC Glucose Monitoring Device (10/25/2024 9:56 PM EDT) POC Glucose Monitoring Device 103(H) 70 - 100 mg/dL 10/25/2024 9:58 PM EDT [facility] Blood 10/25/2024 9:56 PM EDT 10/25/2024 9:57 PM EDT Semaj Mcnair III, MD POINT OF CARE TEST ORDERABLES Final Result Performing Organization Address City/[facility]/ZIP Co de Phone Number [facility] [address] [place] [address] * ECG 12 lead (MUSE) (10/25/2024 9:34 PM EDT) 10/25/2024 9:34 PM EDT Narrative MUSE - 10/27/2024 10:08 AM EDT Ventricular Rate: 97 BPM Atrial Rate: 86 BPM QRS Duration: 106 ms QT: 532 ms QTc: 675 ms P Erie: 38 degrees R Erie: -29 degrees T Erie: 32 degrees Diagnosis Line: Critical Test Result: Long QTc , AV Block ^ SINUS RHYTHM WITH PREMATURE VENTRICULAR COMPLEXES ^ PROLONGED QT ^ NONSPECIFIC ST AND T WAVE CHANGES ^ ABNORMAL ECG ^ ^ Confirmed by MD HA, [facility] ([id number]) on 10/27/2024 10:08:26 AM Leandra Og MD ECG ORDERABLES Final Result Performing Organization Address [facility] Co de Phone Number MUSE * Hepatitis C RNA, Quant Reflex to Genotyp (10/25/2024 8:18 PM EDT) [facility] Units Not Detected IU/mL 10/27/2024 11:03 AM EDT [facility] Comment:Test methodology for HCV RNA quantification is an FDA-approved nucleic acid amplification assay. The Lower Limit of Quantitation (LLOQ) is 15 IU/mL. The linear range of the assay is 15-100,000,000 IU/mL. The Limit of Detection (LoD) is 12.0 IU/mL for EDTA plasma. The reference range is Not Detected. IU log10 See Note log 10 IU/mL 10/27/2024 11:03 AM EDT [facility] Comment:HCV RNA not detected . Plasma 10/25/2024 8:18 PM EDT 10/25/2024 10:27 PM EDT Leandra Og MD LAB BLOOD ORDERABLES F inal Result Performing Organization Address City/State/[facility] Co de Phone Number [facility] [address] [address], [facility] * Urinalysis w/Rfl to Microscopic (10/25/2024 8:18 PM EDT) Color, UA Yellow Yellow,Straw 10/25/2024 10:38 PM EDT [facility] Clarity, UA Clear Clear 10/25/2024 10:38 PM EDT [facility] Specific [place], UA 1.010 1.005 - 1.035 10/25/2024 10:38 PM EDT [facility] pH, UA 6.0 5.0 - 8.0 10/25/2024 10:38 PM EDT [facility] Protein, UA Negative Negative mg/dL 10/25/2024 10:38 PM EDT [facility] Glucose, UA Negative Negative mg/dL 10/25/2024 10:38 PM EDT [facility] Ketones, UA Negative Negative mg/dL 10/25/2024 10:38 PM EDT [facility] Bilirubin, UA Negative Negative 10/25/2024 10:38 PM EDT [facility] Blood, UA Negative Negative 10/25/2024 10:38 PM EDT [facility] Nitrite, UA Negative Negative 10/25/2024 10:38 PM EDT [facility] Urobilinogen, UA <2.0 0.2 - 1.9 mg/dL 10/25/2024 10:38 PM EDT [facility] Leukocyte Esterase, UA Negative Negative 10/25/2024 10:38 PM EDT [facility] Urine 10/25/2024 8:18 PM EDT 10/25/2024 10:35 PM EDT Narrative [facility] - 10/25/2024 10:38 PM EDT Microscopic testing is not performed when the dipstick is negative for blood, leukocyte, protein and nitrite. Leandra Og MD URINE ORDERABLES Final Result [facility] [address] [facility]. [address] * Toxoplasma gondii antibody, IgG (10/25/2024 8:18 PM EDT) [facility] Toxoplasma Gondii IgG <3.0 0.0 - 7.1 IU/mL 10/27/2024 7:55 AM EDT [facility] Comment: Negative <7.2 Equivocal 7.2 - 8.7 Positive >8.7 Serum 10/25/2024 8:18 PM EDT 10/27/2024 8:06 AM EDT [facility] - 10/27/2024 8:06 AM EDT PERFORMED AT: [facility] [id number] FINANCIAL RISK MANAGER: Bassam Khalil, PhD PHONE: [phone] Leandra Og MD LAB BLOOD ORDERABLES F inal Result Performing Organization Address [facility] Co de Phone Number [facility] [address] [facility]. [address] * Antibody Screen (10/25/2024 7:46 PM EDT) [facility] Antibody Screen Negative 10/25/2024 10:41 [address] [facility] Blood 10/25/2024 7:46 PM EDT 10/25/2024 9:54 PM EDT [facility] - 10/25/2024 10:44 PM EDT Testing performed by [facility] Transfusion Service Ben Blake MD BLOOD BANK TEST ORDERABLES Fi nal Result [facility] [address] [facility]. [address] * ABO/Rh (10/25/2024 7:46 PM EDT) [facility] ABO Grouping O 10/25/2024 10:23 PM EDT [facility] Rh Type Positive 10/25/2024 10:23 PM EDT [facility] Blood 10/25/2024 7:46 PM EDT 10/25/2024 9:54 PM EDT us Ben Blake MD BLOOD BANK TEST ORDERABLES Fi nal Result [facility] [address] [place] [address], [facility] * (ABNORMAL) TEG-Standard Global Hemostasis (Rapid TEG with Heparin Effect, Contains a Baseline TEG) (10/25/2024 7:46 PM EDT) [facility]rated Kaolin Reaction Time (TEGHEPARINASE) 8.4 4.6 - 9.1 minutes 10/25/2024 10:49 PM EDT [facility] Citrated Rapid Teg Maximum Amplitude (TEGHEPARINASE) <40.0(L) 52.0 - 70.0 mm 10/25/2024 10:49 PM EDT [facility] Citrated Functional Fibrinogen Maximum Amplitude (TEGHEPARINASE) 6.7(L) 15.0 - 32.0 mm 10/25/2024 10:49 PM EDT [facility] Citrated Kaolin W/Heparinase Reaction Time (TEGHEPARINASE) 8.1 4.3 - 8.3 minutes 10/25/2024 10:49 PM EDT [facility] Citrated Kaolin K-Time (TEGHEPARINASE) 2.5(A) 0.8 - 2.1 minutes 10/25/2024 10:49 PM EDT [facility] [employer] Kaolin Angle (TEGHEPARINASE) 65.7(A) 63.0 - 78.0 degrees 10/25/2024 10:49 PM EDT [facility] Citrated Kaolin Maximum Amplitude (TEGHEPARINASE) <40.0(L) 52.0 - 69.0 mm 10/25/2024 10:49 PM EDT [facility] Citrated Functional Fibrinogen- Fibrinogen Level (TEGHEPARINASE) 159.5(L) 278.0 - 581.0 mg/dL 10/25/2024 10:49 PM EDT [facility] Whole Blood (Citrate) 10/25/2024 7:46 PM EDT 10/25/2024 10:15 PM EDT us Ben Blake MD LAB BLOOD ORDERABLES Final Re sult [facility] [address] [place] [address], [facility] documented in this encounter Visit [...] Given 11/01/2024 9:19 PM EDT 5,000 Units Abdominal Tissue Given 11/01/2024 1:45 PM EDT 5,000 [...] Sun10/31/24 at 0900 1046 (Given - Provider: Pauletet Flannery RN)1433 (Given - Provider: Paulette Flannery [...] Gale, ЮЛИЯ) 0614 (Given - Provider: Yvonne Gale RN)1345 [...] Flannery RN)2057 (Not Given - Provider: Yvonne Gale, ЮЛИЯ - Reason: Patient/family refused) 101 (Given - [...] Gale, RN)1153 (Given - Provider: Paulette Flannery, RN)1714 (Given - Provider: Paulette Flannery, RN)2120 (Given - Provider: Yvonne Gale, ЮЛИЯ) 0123 (Given - Provider: Yvonne Gale, RN)0543 (Given - Provider: Yvonne Gale, RN)1219 (Given - Provider: Paulette Flannery, ЮЛИЯ) OMNIPAQUE [...] documented as of this encounter Care Teams [employer]ator [employer] Breast Relationship Specialty Start Date End Date Enedina Mcguire NP [address] [place] [address] PCP - General Internal Medicine 10/05/24 documented as of this encounter
--- OUTSIDE RECORDS SUMMARY | 2024-10-25 22:54 | XMS_ITS | Encounter Summary ---
Author Organization [facility] Address [facility] [place] [address] Care Team Providers Care Dumbwaiter Operator Name Role Phone Enedina Mcguire NP Primary Care Provider [phone] Source Comments This information has been disclosed [...] release of HIV test results or diagnoses. [id number] Reason for Visit * Auth/Cert (Routine) Specialty Diagnoses / Procedures Referred By Shane t Referred To Contact Surgical Intensive Care Diagnoses Liver transplant recipient (CMS-HCC) cirrhosis and CKD Procedures LIVER-KIDNEY TRANSPLANT [facility] SICU [address] [place] [address] Phone: tel: Referral ID Status Reason Start Date Expiration Date Visits Re quested Visits Authorized [id number] 1 1 Encounter Details Date Type Department Care Team (Late st Contact Info) Description 10/25/2024 10:54 PM EDT Anesthesia Event [facility] PERIOP [address] [place] [address] Eber Quinones MD [address] [place] [address] Maureen Fleming MD [address] [place] [address] Anesthesia Record Procedure Summary Procedure Name Responsible [...] sodium chloride 0.9% 1 00 mL IVPB (Axbn3Udl) 4 g cefTRIAXone (ROCEPHIN) 2 g in sodium chl oride 0.9 % 100 mL Ocxf5Qet 8 g fluconazole (DIFLUCAN) 200 mg in [...] Cuffed; 1; 26 cm; Lips; Commercial tube suárze; CO2 Detector color change, Breath Sounds Confirmed [...] the past 12 months has th e [employer], oil, or water [employer] threatened to shut off services in your [...] Blake MD - 10/25/2024 7:26 PM EDT [facility] DEPARTMENT OF ANESTHESIOLOGY PRE-PROCEDURAL EVALUATION [...] dysrhythmias, angina, orthopnea. ECG reviewed. ROS comment: [facility] 10/14/24: IMPRESSIONS: - Patent coronary [...] is no recent study available for direct rddq-ps-iwak comparison. Stress echo 10/09/24: - Left ventricle: [...] at baseline or with provocation, shows no rkqve-um-zzon atrial level shunt. - Pulmonary arteries: Systolic [...] Low Risk (07/09/2024) Received from [facility] Overall Financial Resource Strain (CARDIA) Difficulty of [...] Activity: Unknown (07/14/2024) Received from [facility] Exercise Vital Sign Days of Exercise per Week: Patient unable to answer Minutes of Exercise per Session: Not on file Stress: Patient Unable To Answer (07/14/2024) Received from [facility] [place] of Occupational Health - Occupational Stress Questionnaire Feeling of Stress : Patient unable to answer Social Connections: Patient Unable To Answer (07/14/2024) Received from [facility] Social Connection and Isolation Panel [NHANES] Frequency of Communication with Friends and Family: Patient unable to answer Frequency of Social Gatherings with Friends and Family: Patient unable to answer Attends Mandaen Services: Patient unable to answer Active Member [...] times a day. naloxone (NARCAN) 4 mg/actuation [place] Apply 1 spray in one nostril if [...] MD - 10/25/2024 11:54 PM EDTAssociated Order(s): [place] Emily Cath [place] Emily Cath Date/Time: 10/25/2024 11:13 PM Performed [...] procedure performed. Ben Blake MD Attending Anesthesiologist [facility] * Jimmy Gonzalez MD - 10/25/2024 11:52 [...] procedure performed. Ben Blake MD Attending Anesthesiologist [facility] documented in this encounter Plan of Treatment Upcoming Encounters Date Type Department Care Team (Late st Contact Info) Description 12/05/2024 8:01 AM EDT Hospital Encounter [facility] ENDOSCOPY [address] [place] [address] Chris Orosco MD [address] [place] [phone] 12/05/2024 8:01 AM EDT - 12/05/2024 8:31 AM EDT Surgery [facility] ENDOSCOPY [address] [place] [address] Chris Orosco MD [address] [place] [phone] EGD Scheduled Procedures Name Priority Associated Diagnoses [...] EDT Ben Blake MD 10/26/2024 7:45 PM [place] [facility] Cath Date/Time: 10/25/2024 11:13 PM Performed [...] hepatic cirrhosis type ([facility]) * Transfer of Care - Maureen [...] 0659 10/26/24 07 - 10/27/24 0659 Shift 4028-0245 2755-8778 9270-8289 24 Hour Total 3919-3037 8095-0949 5408-0503 24 Hour Total INTAKE I.V. 9100(74.3) 9100(74.3) [...] in sodium chloride 0.9 % 100 mL Lmbi0Yhc) 100 100 Volume (mL) (AMPicillin 2 g in sodium chloride 0.9% 100 mL IVPB (Bpma5Nyc)) 200 200 Volume (mL) (albumin human bottle 5%) 1000 1000 Volume (mL) (potassium chloride (KCl)/Sterile water 100 mL 10 mEq/100 mL IVPB) 200 200 Shift Total(mL/kg) 70154(151.9) 38471(151.9) OUTPUT Urine 150(0.2) 1375 1525 Urine 150 [...] in sodium chloride 0.9% 100 mL IVPB (Ezrv7Qhw) 2 g, Intravenous, at 200 mL/hr, Every 6 hours, First dose on 10/26/24 at 0000, Use Umqp0Jer Adapter - Mix Thoroughly Before Administration Bolus [...] in sodium chloride 0.9 % 100 mL Apws8Rfq 2 g, Intravenous, Administer over 30 Minutes, Once, Use Vlty0Rfb Adapter - Mix Thoroughly Before Administration, Indication? [...] documented as of this encounter Care Teams Dumbwaiter Operator Relationship Specialty Start Date End Date Enedina Mcguire NP [address] [place] [address] PCP - General Internal Medicine 10/05/24 documented as of this encounter
--- OUTSIDE RECORDS SUMMARY | 2024-10-27 02:00 | XMS_ITS | Encounter Summary ---
Author Organization [facility] Address [address] [place] [address] Care Team Providers Care Foreign Broadcast Specialist Name Role Phone Enedina Mcguire NP Primary Care Provider [phone] Source Comments This information has been disclosed [...] release of HIV test results or diagnoses. [id number] Reason for Visit * Auth/Cert (Routine) Specialty Diagnoses / Procedures Referred By Shane hernadez Referred To Contact Surgical Intensive Care Diagnoses Liver transplant recipient (CMS-HCC) cirrhosis and CKD Procedures LIVER-KIDNEY TRANSPLANT [facility] SICU [address] [place] [address] Phone: tel: Referral ID Status Reason Start Date Expiration Date Visits Re quested Visits Authorized [id number] 1 1 Encounter Details Date Type Department Care Team (Late st Contact Info) Description 10/27/2024 2:00 AM EDT - 10/27/2024 6:54 AM EDT Surgery [facility] PERIOP [address] [place] [address] Semaj Mcnair III, MD [address] [facility] [address] [place] [address] Donor Kidney Transplant , Back [...] Recorded In the past 12 months has [employer], oil, or water [employer] threatened to shut off services in your [...] kept under 2 gm/day. Please discuss withyour academic success coordinator if you have any question about appropriate dose to take. Other Instructions: Call post-liver transplant clinic with questions [phone] or call [facility] at [phone] and ask for the liver digital marketing coordinator industrial economics teacher if you experience any of the following: [...] 11/04/2024 8:40 AM LTRA SURGERY, [facility] LTRA HOX HOX 11/04/2024 10:10 AM LTRA HEPATORENAL HOX LTRA HOX HOX 11/25/2024 9:00 AM NAA Merida [facility]RO MAB MAB 12/02/2024 2:00 PM Bossman Huffman MD [facility]IANGEL MAB MAB 02/25/2025 10:50 AM Bruno Gonzalez MD [facility] HOX HOX documented in this [...] 10/27/2024 blood-glucose meter (TRUE METRIX GLUCOSE METER) [facility] Use to test blood sugar up to [...] AM EDT 10/27/2024 lancets (ACCU-CHEK SOFTCLIX LANCETS) [facility] Use to test blood sugar up to [...] capsule 5 10/27/2024 naloxone (NARCAN) 4 mg/actuation Juliaetta Apply 1 spray in one nostril if [...] tacrolimus and mycophenolate which were dispensed through [facility] Specialty per insurance requirements. Patient's [...] fair Expected caregiver involvement?: is primary med logistics account manager Need for additional education in clinic?: routine reinforcement only Future medications to be obtained from, if known (select one): Tac/MMF to be filled from [facility] Specialty Pharmacy Financial concerns (if [...] R-11 blood-glucose meter (TRUE METRIX GLUCOSE METER) [facility] Use to test blood sugar up to [...] mL, R-2 lancets (ACCU-CHEK SOFTCLIX LANCETS) [facility] Use to test blood sugar up to [...] Disp-30 tablet, R-0 naloxone (NARCAN) 4 mg/actuation Juliaetta Apply 1 spray in one nostril if [...] Solid Organ Transplant Clinical Specialist Contact via [employer] Secure Chat * Froylan Hendrickson MD - 11/01/2024 8:04 AM EDT Liver Transplant Surgery Progress Note Name: Blair Gilbert CSN: [id number] Date: 11/01/2024 8:06 AM OR Date: 10/25/2024 [...] at 10/31/2024 4:38 PM EDT US Duplex Ksn-Eay-Aheghcu Comp Result Date: 10/31/2024 IMPRESSION: RIGHT UPPER [...] 10/25/2024 - 10/27/2024. Plan: Liver transplant recipient ([facility]) [Z94.4] Neuro: - Multimodal pain control: [...] 3:24 PM EDT TXP - Follow Up [facility] Medical Nutrition Therapy Transplant Brief [...] Boost VHC- very high calorie protein supplement ([facility] only) Pertinent Information: Pt seen for [...] Based on DBW of 93.1 kg Kcals/day: 0156-8243 (25-30 kcals/kg) Protein g/day: 140-190 (1.5-2.0 g/kg) [...] Dietitian - Solid Organ Transplant Contact via [employer] Chat * Keon Dobson - 10/31/2024 2:35 PM EDT [facility] Spiritual Care Volunteer Visit PATIENT NAME: Blair Gilbert ROOM:80/80 Voodoo Affiliation:Taoism Blair Gilbert was visited by a volunteer today. No needs requiring a visit from a staff director of psychology were expressed at that time. Care Provided: Communion, Prayer/ blessing Please page our service at [phone] as needs arise for patient and/or family. Fr Dean Dobson Taoism director of psychology Spiritual Care Dept * Brittany Horne PT [...] transplant recipient (CMS-HCC) [Z94.4] Date: 10/31/2024 Room: 25/[facility] Reviewed Pertinent hospital course: Yes Hospital Course [...] issued by OT: Long-handled sponge, Sock aid, Warp Clamper, Other (comment) Equipment issued by OT comment: leg conference and event organiser Assessment Assessment: Decreased ADL status, Decreased IADLs, [...] Pt will complete bathing assessment and transfer local company intermodal truck driver goal to be met in: 2 weeks [...] Hypertension Other hyperlipidemia 07/26/2024 Renal cell carcinoma ([facility]) Thrombocytopenia ([facility]) Thyroid disease Past Surgical History Past Surgical History: Procedure Laterality Date ESOPHAGOGASTRODUODENOSCOPY N/A 10/10/2024 Procedure: EGD; Surgeon: Lino Soto MD; Location: ENDOSCOPY; Service: Gastroenterology; Laterality: N/A; LEFT HEART CATH N/A 10/14/2024 Procedure: Left Heart Cath; Surgeon: Irving Matta MD; Location: CARDIAC CATH LABS; Service: Cath; Laterality: N/A; LIVER-KIDNEY TRANSPLANT N/A 10/25/2024 Procedure: [...] Patient Active Problem List Diagnosis Decompensated cirrhosis ([facility]) Acute kidney injury superimposed on CKD ([facility]) Alcohol use disorder Metabolic encephalopathy Hypertension Other hyperlipidemia Thrombocytopenia ([facility]) Renal mass, left Abdominal pain Hypokalemia CKD (chronic kidney disease) stage 4, GFR 15-29 ml/min ([facility]) Metabolic acidosis with normal anion gap and bicarbonate losses GERD (gastroesophageal reflux disease) Hypothyroidism Itching Anemia BRBPR (bright red blood per rectum) SBP (spontaneous bacterial peritonitis) ([facility]) C Diff Diarrhea C. [...] 0659 10/31/24 07 - 11/01/24 0659 Shift 9976-8033 8446-1718 0331-0460 24 Hour Total 4557-2256 9353-9718 7215-4193 24 Hour Total INTAKE P.O. 240 240 P.O. 240 240 Shift Total(mL/kg) 240(1.9) 240(1.9) OUTPUT Urine(mL/kg/hr) 1850(1.8) 600(0.6) 600(0.6) 3050(1) 350 350 Urine 800 622 834 2415 350 350 Urine Occurrence 2 x 2 [...] with further concerns Lavell Kramer MD 10/31/[phone] * Priti Geiger CNP - 10/31/2024 10:06 AM EDT Liver Transplant Surgery Progress Note Name: Blair Gilbert CSN: [id number] Date: 10/31/2024 10:06 AM OR Date: 10/25/2024 [...] 10/28/24 1109 LACTATE 0.3* Imaging US Duplex Ijx-Liy-Wgtgynq Comp Result Date: 10/28/2024 IMPRESSION: ABDOMINAL ULTRASOUND [...] 10/25/2024 - 10/27/2024. Plan: Liver transplant recipient ([facility]) [Z94.4] Neuro: - Multimodal pain control: [...] Transplant Nephrology Progress Note Patient: Blair Gilbert [id number] Date of Admit: 10/25/2024. LOS: 6 [...] and HTN. Presents as direct admission for K on 10/25/24. 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 Lauren Santos, SAMSON, CONSUMER RELATIONS SPECIALIST, FOLDER TAPER OPERATOR- Transplant Nephrology [phone] Preferred contact: secure chat The HPI, ROS, [...] 0659 10/30/24 07 - 10/31/24 0659 Shift 7518-4280 8735-1096 1246-6139 24 Hour Total 0183-4234 0632-4736 3707-3295 24 Hour Total INTAKE P.O. 240 240 480 P.O. 240 240 480 IV Piggyback 87.2 87.2 Volume (mL) (micafungin (MYCAMINE) 50 mg in sodium chloride 0.9 % 100 mL Paru3Jpm IVPB) 87.2 87.2 Shift Total(mL/kg) 240(2) 327.2(2.7) 567.2(4.4) OUTPUT Urine(mL/kg/hr) 600(0.6) 1175(1.2) 450(0.4) 2225(0.7) 550 550 Output (mL) (IUC (Berkowitz) Triple-lumen (3-Way) 18 Fr.) 600 9003 770 6417 550 550 Drains 175 245 100 520 [...] month of prophylaxis Lavell Kramer MD 10/30/[phone] * Priti Geiger CNP - 10/30/2024 10:36 AM EDT Liver Transplant Surgery Progress Note Name: Blair Gilbert CSN: [id number] Date: 10/30/2024 10:37 AM OR Date: 10/25/2024 [...] 1109 LACTATE 0.5 0.3* Imaging US Duplex Suy-Sim-Rigreah Comp Result Date: 10/28/2024 IMPRESSION: ABDOMINAL ULTRASOUND [...] 10/25/2024 - 10/27/2024. Plan: Liver transplant recipient ([facility]) [Z94.4] Neuro: - Multimodal pain control: [...] Transplant Nephrology Progress Note Patient: Blair Gilbert [id number] Date of Admit: 10/25/2024. 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 Lauren Santos, DNP, CONSUMER RELATIONS SPECIALIST, FOLDER TAPER OPERATOR- Transplant Nephrology [phone] Preferred contact: secure chat The HPI, ROS, [...] EDT Pt seen, examined, and discussed with CONSULTING TECHNICAL MANAGER on 10/30/2024. reviewed the chart including [...] 3:36 PM EDT TXP - Follow Up [facility] Medical Nutrition Therapy Follow-Up Diet [...] appetite. Diet advanced this am. ONS ordered. Benjamin n/v/d. Reviewed post-txp nutrition guidelines with pt. [...] I/O: +23.3L net volume. Last BM Date: (relief captain). Admit Weight: 270 lb (122.5 kg) [...] Based on DBW of 93.1 kg Kcals/day: 6263-1162 (25-30 kcals/kg) Protein g/day: 140-190 (1.5-2.0 g/kg) [...] Dietitian - Solid Organ Transplant Contact via [employer] Chat * Anita Akersmikki, PT - 10/29/2024 2:04 PM EDT Physical Therapy Initial Assessment Name: Blair Gilbert : 1985 Attending Physician: Semaj Mcnair III, MD Admission Diagnosis: Liver transplant recipient (CMS-HCC) [Z94.4] Date: 10/29/2024 Room: [place] [address] [address] Reviewed Pertinent hospital course: Yes Hospital Course [...] hyperlipidemia 07/26/2024 Renal cell carcinoma (CMS-HCC) Thrombocytopenia ([facility]) Thyroid disease Past Surgical History Past [...] Patient Active Problem List Diagnosis Decompensated cirrhosis ([facility]) Acute kidney injury superimposed on CKD ([facility]) Alcohol use disorder Metabolic encephalopathy Hypertension Other hyperlipidemia Thrombocytopenia ([facility]) Renal mass, left Abdominal pain Hypokalemia CKD (chronic kidney disease) stage 4, GFR 15-29 ml/min ([facility]) Metabolic acidosis with normal anion gap and bicarbonate losses GERD (gastroesophageal reflux disease) Hypothyroidism Itching Anemia BRBPR (bright red blood per rectum) SBP (spontaneous bacterial peritonitis) ([facility]) C Diff Diarrhea C. difficile diarrhea Neck pain with history of cervical spinal surgery * Shanel Pabon, OT - 10/29/2024 1:23 PM EDT Occupational Therapy Initial Assessment Name: Blair Gilbert : 1985 Attending Physician: Semaj Mcnair III, MD Admission Diagnosis: Liver transplant recipient ([facility]) [Z94.4] Date: 10/29/2024 Room: [place] [address] [address] Reviewed Pertinent hospital course: Yes Hospital Course PT/OT: 39 y/o male presents for SLK. 6/14 OR: OLT, TAC. 10/27 return to OR: [...] Intervention(s): Ambulation/increased activity;Repositioned Therapist reported pain to: supervisor Oxygen Supplemental Oxygen Supplemental Oxygen: None [...] distance ambulation in prep for IADL task Mcc Goal : Pt will complete bathing [...] Patient Active Problem List Diagnosis Decompensated cirrhosis ([facility]) Acute kidney injury superimposed on CKD ([facility]) Alcohol use disorder Metabolic encephalopathy Hypertension Other hyperlipidemia Thrombocytopenia ([facility]) Renal mass, left Abdominal pain Hypokalemia CKD (chronic kidney disease) stage 4, GFR 15-29 ml/min ([facility]) Metabolic acidosis with normal anion gap and bicarbonate losses GERD (gastroesophageal reflux disease) Hypothyroidism Itching Anemia BRBPR (bright red blood per rectum) SBP (spontaneous bacterial peritonitis) ([facility]) C Diff Diarrhea C. difficile diarrhea Neck pain with history of cervical spinal surgery * Caron Santos CNP - 10/29/2024 10:30 AM EDT Images from the original note were not included. Transplant Nephrology Progress Note Patient: Blair Gilbert [id number] SICU-28/IC-28 Date of Admit: 10/25/2024. 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 Lauren Santos, SAMSON, CONSUMER RELATIONS SPECIALIST, FOLDER TAPER OPERATOR- Transplant Nephrology [phone] Preferred contact: secure chat The HPI, ROS, [...] Surgery Progress Note Name: Blair Gilbert CSN: [id number] Date: 10/29/2024 10:08 AM OR Date: 10/25/2024 [...] LACTATE 0.4* 0.5 0.3* Imaging US Duplex Crx-Gma-Lgnomkt Comp Result Date: 10/28/2024 IMPRESSION: ABDOMINAL ULTRASOUND [...] at 10/27/2024 10:38 AM EDT US Duplex Udj-Tzr-Ozvygrf Comp Result Date: 10/27/2024 IMPRESSION: RIGHT UPPER [...] 10/25/2024 - 10/27/2024. Plan: Liver transplant recipient ([facility]) [Z94.4] Neuro: - Multimodal pain control: [...] DISPO: floor KENYETTA HARTMAN, MS4 [facility] 10:08 AM 10/29/2024 Cosigned by [...] Date 10/28/246[address] - 10/29/2465810/29/24699 - 10/30/24658 Shift 4568-0279 4856-7323 6424-8728 24 Hour Total 6962-2424 2278-2800 2303-1877 24 Hour Total INTAKE P.O. 240 0 [...] IV infusion) 253.9 374.7 775.6 1404.2 Blood 6337 005 6043 Albumin 750 750 Volume (Transfuse RBC Transfusion Rate: Per dept routine) 310 310 Volume (Transfuse RBC Transfusion Rate: Per dept routine) 271 271 IV Piggyback 918.4 106 06 2986.4 Volume (mL) (micafungin (MYCAMINE) 50 mg in sodium chloride 0.9 % 100 mL Yabh3Aqt IVPB) 99.9 99.9 Volume (mL) (albumin human [...] month of prophylaxis Lavell Kramer MD 10/29/[phone] * John Moreno MD - 10/29/2024 6:47 AM EDT SURGICAL ICU PROGRESS NOTE 10/29/2024 6:47 AM Name: Blair Gilbert [facility]: [id number] HPI: Blair Gilbert is a 39 y.o. [...] day. blood-glucose meter (TRUE METRIX GLUCOSE METER) [facility] Use to test blood sugar up to 4 times a day. DEXCOM G7 SOFT DRINK POWDER MIXER Misc Use reader as directed. DEXCOM G7 [...] at bedtime. lancets (ACCU-CHEK SOFTCLIX LANCETS) [facility] Use to test blood sugar up to 4 times a day. methocarbamoL (ROBAXIN) 500 MG tablet Take 1 tablet (500 mg total) by mouth 3 times a day. naloxone (NARCAN) 4 mg/actuation Juliaetta Apply 1 spray in one nostril if [...] 37 37 35 PO2ART 245* 182* 92 OIV0GIN 22 21* 21* BEART -4.2* -4.8* -4.6* [...] at baseline or with provocation, shows no bacys-pg-xpln atrial level shunt. - Pulmonary arteries: Systolic [...] MAP 65 on cuff goal - DC dlaia today # HLD - Not on statin [...] Home pantoprazole 40mg daily, continue Last BM: EXTERNAL AUDITOR - suppository today Bowel regimen: Miralax today, [...] results for input(s): TEGANGLE , TEGKTIME , POMEUTUF85 , TEGMAXAMPL , TEGRTIME , CBMZ in [...] in sodium chloride 0.9 % 100 mL Vati5Jml IVPB 50 mg Every 24 hours 10/27/2024 -- Admin Instructions: PROTECT FROM LIGHT FLUSH LINE w/NSS PRIOR TO ADMINISTRATION Use Hzyl4Zck Adapter - Mix Thoroughly Before Administration Route: [...] instability DC today Arterial Line? R radial Elbert- DC today Urinary Catheter? Berkowitz - Reason: [...] BID Continuous Infusions: HYDROmorphone 6 mg/30 mL DRAW TENDER norepinephrine 4 mcg/min (10/27/24 2318) sodium chloride [...] 10/27/24699 - 10/28/2465810/28/24699 - 10/29/24 0659 Shift 5336-2989 1812-9260 0277-0813 24 Hour Total 8505-7172 1979-6140 4475-4757 24 Hour Total INTAKE P.O. 0 120 [...] in sodium chloride 0.9 % 100 mL Taux1Jgw IVPB) 100 100 Volume (mL) (albumin human 5%) 126 126 Volume (mL) (potassium chloride (KCl)/Sterile water 50 mL 20 mEq/50 mL IVPB 20 mEq) 100 100 Volume (mL) (AMPicillin 1 g in sodium chloride 0.9% 100 mL IVPB (Jmfe1Cyf)) 100.1 57 42.9 200 Volume (mL) (mycophenolate (CELLCEPT) 500 mg in dextrose 5% in water (D5W) 50 mL IVPB) 50 5.3 55.3 Shift Total(mL/kg) 2079.3(17) 1161(9.5) 787.3(6.4) 4027.6(32.9) OUTPUT Urine(mL/kg/hr) 2195(2.2) 1000(1) 900(0.9) 4095(1.4) 490 490 Urine 360 360 Output (mL) (IUC (Berkowitz) Triple-lumen (3-Way) 18 Fr.) 1835 8968 281 3613 490 490 Emesis/NG output 50 50 Drainage [...] month of prophylaxis Lavell Kramer MD 10/28/[phone] * Caron Santos CNP - 10/28/2024 9:00 AM EDT Images from the original note were not included. Transplant Nephrology Progress Note Patient: Blair Gilbert [id number] SICU-28/USIC-28 Date of Admit: 10/25/2024. 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 Lauren Santos, SAMSON, CONSUMER RELATIONS SPECIALIST, FOLDER TAPER OPERATOR- Transplant Nephrology [phone] Preferred contact: secure chat The HPI, ROS, [...] EDT Pt seen, examined, and discussed with CONSULTING TECHNICAL MANAGER on 10/28/2024. reviewed the chart including the labs and imaging studies. My additional comments below. 39 y.o. 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 S/p SLK 10/25-10/26 Has great UOP 4.2L Aaron Gonzalez MD, MEd, FASN * Shay Plata MD - 10/28/2024 7:41 AM EDT Liver Transplant Surgery Progress Note Name: Blair Gilbert CSN: [id number] Date: 10/28/2024 11:05 AM OR Date: 10/25/2024 - 10/27/2024 Subjective: 1 Day Post-Op Received one unit pRBCs overnight On low dose levo this morning Increasing tachycardia Reports worsening pain, on DRAW TENDER Tolerated sips of clears No nausea/vomiting, no [...] Oral BID Continuous: HYDROmorphone 6 mg/30 mL DRAW TENDER norepinephrine Stopped (10/28/24 0637) sodium chloride 0.9 [...] at 10/27/2024 10:38 AM EDT US Duplex Wnd-Fiy-Lcwkxvy Comp Result Date: 10/27/2024 IMPRESSION: RIGHT UPPER [...] 10/25/2024 - 10/27/2024. Plan: Liver transplant recipient ([facility]) [Z94.4] Neuro: - Multimodal pain control: dilaudid DRAW TENDER, tylenol, robaxin. PRN dilaudid for breakthrough CV: [...] SICU SHAY PLATA MD, MS4 [facility] 11:05 AM 10/28/2024 Cosigned by [...] 10/28/2024 6:17 AM Name: Blair Gilbert CSN: [id number] HPI: Blair Gilbert is a 39 y.o. [...] to 4 times a day. DEXCOM G7 SOFT DRINK POWDER MIXER Misc Use reader as directed. DEXCOM G7 [...] times a day. naloxone (NARCAN) 4 mg/actuation Juliaetta Apply 1 spray in one nostril if [...] Oral BID Continuous: HYDROmorphone 6 mg/30 mL DRAW TENDER insulin regular in 0.9 % sodium chloride [...] 37 37 35 PO2ART 245* 182* 92 XPT2HHL 22 21* 21* BEART -4.2* -4.8* -4.6* [...] at baseline or with provocation, shows no xborh-gd-ykal atrial level shunt. - Pulmonary arteries: Systolic [...] while intubated,convert to PO today Last BM: EXTERNAL AUDITOR Bowel regimen: Miralax today, hold senna til [...] ml IV Fluids: HYDROmorphone 6 mg/30 mL DRAW TENDER insulin regular in 0.9 % sodium chloride, [...] results for input(s): TEGANGLE , TEGKTIME , NQQYCJFX35 , TEGMAXAMPL , TEGRTIME , CBMZ in [...] in sodium chloride 0.9% 100 mL IVPB (Gbmm3Asq) (Completed) 1 g Every 6 hours scheduled 10/26/2024 10/28/2024 Admin Instructions: Dosage may need to be adjusted for renal dysfunction. Full dose is 1g IV q6h Use Vkix0Pyx Adapter - Mix Thoroughly Before Administration Notes [...] in sodium chloride 0.9 % 100 mL Ousr8Jvc IVPB 50 mg Every 24 hours 10/27/2024 -- Admin Instructions: PROTECT FROM LIGHT FLUSH LINE w/NSS PRIOR TO ADMINISTRATION Use Pddu3Scj Adapter - Mix Thoroughly Before Administration Route: [...] R IJ Mac Arterial Line? R radial Elbert Urinary Catheter? Berkowitz - Reason: Adequate I/O [...] the Caprini Risk Score of 10 and [facility] transplant protocol, I recommend discharging [...] the patient as needed. Hillary Fernandes PharmD, [facility] Solid Organ Transplant Clinical Specialist Contact via [employer] Secure Chat Preferred O. [phone] * Chinedu Almeida RRT - 10/27/2024 1:10 [...] Yes MD Order No SBT No Yes [place] Coma Scale > 8 Yes Lab Results Component Value Date PHART 7.36 10/27/2024 PCO2 37 10/27/2024 PO2ART 245 (H) 10/27/2024 AJI2TTK 22 10/27/2024 BEART -4.2 (L) 10/27/2024 TPV1JMW 96.5 10/27/2024 C2ROHVVX 100 10/27/2024 Based on this SBT assessment [...] Surgery Progress Note Name: Blair Gilbert CSN: [id number] Date: 10/27/2024 11:40 AM OR Date: 10/25/2024 - 10/27/2024 Subjective: * Day of Surgery * Remains intubated in SICU Sedated but appropriately nods to questions No acute distress Objective: BP 100/48 Pulse 89 Temp 99 ??F (37.2 ??C) (Mora) Resp 9 Ht 6' 4 (1.93 m) [...] at 10/27/2024 10:38 AM EDT US Duplex Pal-Wqs-Leoswgd Comp Result Date: 10/27/2024 IMPRESSION: RIGHT UPPER [...] 10/27/2024. Problem List[1] Plan: Liver transplant recipient ([facility]) [Z94.4] Neuro: - Propofol/fentanyl CV: - [...] DISPO: SICU KENYETTA HARTMAN, MS4 [facility] 11:40 AM 10/27/2024 [1] Patient Active Problem List Diagnosis Decompensated cirrhosis ([facility]) Acute kidney injury superimposed on CKD ([facility]) Alcohol use disorder Metabolic encephalopathy Hypertension Other hyperlipidemia Thrombocytopenia ([facility]) Renal mass, left Abdominal pain Hypokalemia CKD (chronic kidney disease) stage 4, GFR 15-29 ml/min ([facility]) Metabolic acidosis with normal anion gap and bicarbonate losses GERD (gastroesophageal reflux disease) Hypothyroidism Itching Anemia BRBPR (bright red blood per rectum) SBP (spontaneous bacterial peritonitis) ([facility]) C Diff Diarrhea C. [...] 10/27/2024 7:16 AM Name: Blair Gilbert CSN: [id number] HPI: Blair Gilbert is a 39 y.o. [...] times a day. naloxone (NARCAN) 4 mg/actuation Juliaetta Apply 1 spray in one nostril if [...] 47* 36 37 PO2ART 127* 91 137* GHQ5OIR 21* 22 20* BEART -5.4* -3.9* -6.4* [...] at baseline or with provocation, shows no wkfcm-xx-qfkf atrial level shunt. - Pulmonary arteries: Systolic [...] IV pantoprazole while intubated, NPO Last BM: EXTERNAL AUDITOR Bowel regimen: Senna/Miralax when able Nausea: Zofran PRN FLUID/ELECTROLYTES Recent Labs 10/26/24 1048 10/26/24 1642 10/27/24 0013 NA 139 142 141 K 2.9* 3.3* 3.2* CL 107 109 109 CO2 22 23 21 BUN 61* 63* 64* CREATININE 2.78* 2.85* 2.58* CALCIUM 8.8 8.9 8.9 MG 2.0 2.0 1.8 PHOS 4.1 4.4 5.3* GLUCOSE 253* 127* 126* Intake/Output Summary (Last 24 hours) at 10/27/2024715 Last data filed at 10/27/2024 0715 Gross per 24 hour Intake 45294.82 ml Output 7060 ml Net 6224.82 ml [...] results for input(s): TEGANGLE , TEGKTIME , JWEIPVFH84 , TEGMAXAMPL , TEGRTIME , CBMZ in [...] in sodium chloride 0.9% 100 mL IVPB (Ikqx3Htd) 1 g Every 6 hours scheduled / Admin Instructions: Dosage may need to be adjusted for renal dysfunction. Full dose is 1g IV q6h Use Tzbi2Hwt Adapter - Mix Thoroughly Before Administration Notes to Pharmacy: On food and beverage order clerk estimated creatinine clearance is 35.9 mL/min (A) (based on SCr of 3.87 mg/dL (H)). Route: Intravenous Linked Group 1: Placed in And Linked Group cefTRIAXone (ROCEPHIN) 2 g in sodium chloride 0.9 % 100 mL Vxuz5Hsy Continuous - One Step Medications Only 10/27/2024 [...] Forearm 1 Arterial Line 10/25/24 Right Radial 06/14/25 2245 Radial 1 Introducer 10/25/24 Internal jugular Right 10/25/24 0401 Internal jugular 1 Central Line? Yes - Reason: Hemodynamic instability R IJ Mac Arterial Line? R radial Elbert Urinary Catheter? Berkowitz - Reason: Adequate I/O [...] Solid Organ Transplant Clinical Specialist Contact via [employer] Preferred * Simeon Guzman RN - 10/27/2024 2:40 AM EDT Pt was taken to the OR by OR staff. Pt left in B upper extremity limb restraints in place. Care transferred to OR staff at this time. Simeon REDMAN * Jannet Ramires - 10/26/2024 2:30 PM EDT ECG performed on patient Bliar Gilbert in SICU-28/USIC-28. 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 naloxone (NARCAN) 4 mg/actuation Juliaetta Apply 1 spray in one nostril if [...] Resource Strain: Low Risk (07/09/2024) Received from [facility] Overall Financial Resource Strain (CARDIA) [...] No Physical Activity: Unknown (07/14/2024) Received from [facility] Exercise Vital Sign Days of Exercise per Week: Patient unable to answer Minutes of Exercise per Session: Not on file Stress: Patient Unable To Answer (07/14/2024) Received from [facility] [place] [facility] - Occupational Stress Questionnaire Feeling of Stress : Patient unable to answer Social Connections: Patient Unable To Answer (07/14/2024) Received from [facility] Social Connection and Isolation Panel [...] SICU post-op. LEANDRA OG MD [facility] Liver Transplant Pager: [phone] 8:24 PM 10/25/2024 Cosigned by Semaj [...] Name: Blair Gilbert Date: 1985 Billing #: [id number] Date of Procedure: 10/25/2024 Diagnosis: End Stage Renal Disease Procedure: 1. Donor Kidney Transplant 2. Back Bench Preparation Donor Kidney 3. Baseline Kidney transplant biopsy 4. Insertion of Indwelling Stent 5. Removal of Perihepatic packing Surgeons * Flaquito Ba MD Feather Renovator MD Shayan Findings: Low Hockey stick incision [...] donor was ABO O and UNOS ID [id number], Match [place] [id number] (K). This donor was a Donor after [...] was then wanded with the lap detection housing assistant property manager. The incision was ex tented 2 inches [...] and closure. Flaquito Ba MD Transplant Surgeon focused factory manager * Flaquito Ba MD - 10/27/2024 6:15 AM EDT TRANSPLANT KIDNEY with bile duct reconstruction Brief Op Note Blair Gilbert 10/27/2024 Pre-op Diagnosis: Acute kidney injury superimposed on CKD (CMS-HCC) [N17.9, N18.9] Post-op Diagnosis: same Procedure(s): TRANSPLANT KIDNEY Surgeon(s): MD Semaj Washington III, MD Anesthesia: General Endotracheal Staff: Fish Bait Processing Supervisor: Chinedu Quinn RN Scrub Person: ST Angela Fellow: Kemar Sahni MD 2nd Fish Bait Processing Supervisor: Marty Clark RN 3rd Fish Bait Processing Supervisor: Candis Mcdaniel RN FINDINGS Berkowitz 3 day Drains: Intraabdominal (perihepatic) UNOS ID [id number], Match Run [id number] Kid WIT 27 min Kid CIT 33 [...] (Berkowitz) Triple-lumen (3-Way) 18 Fr. (Active) Status [place] Drainage 10/26/241999 Collection Container Standard drainage bag [...] Washington III, MD Anesthesia: General Endotracheal Staff: Fish Bait Processing Supervisor: Chinedu Quinn RN Relief Fish Bait Processing Supervisor: Michela Amos RN Relief Scrub: Stephani Blake RN Scrub Person: ST Angela Fellow: Kemar Sahni MD 2nd Fish Bait Processing Supervisor: Marty Clark RN 3rd Fish Bait Processing Supervisor: Candis Mcdaniel RN Estimated Blood Loss: [...] (Berkowitz) Triple-lumen (3-Way) 18 Fr. (Active) Status [place] Drainage 10/26/241999 Collection Container Standard drainage bag [...] day Drains: 2 Intraabdominal (perihepatic) UNOS ID [id number], Match [place] [id number] Donor: young DCD NRP Kid WIT 27 [...] BLAIR GILBERT DATE OF : 1985 CSN: [id number] PHYSICIAN: Semaj Mcnair III, MD ADMIT DATE: 10/25/2024 DICTATED BY: Semaj Mcnair III, MD SURGERY DATE: 10/27/2024 OPERATIVE REPORT SURGEON: Semaj Mcnair III, MD MANAGER DEPARTMENT SURGEON: Kemar Sahni MD. PREOPERATIVE DIAGNOSIS: Open [...] were made hemostatic with the argon beam grain trimmer. We assessed the flows of the portal [...] a mucocele formation. We then performed a nevb-ri-kpga choledochocholedochostomy in an end to end fashion [...] small umbilicalhernia that was closed with a srllex-bz-maixq 0 PDS suture. At this point, we [...] complications. SEMAJ MCNAIR III, MD RCQ/AQ JOB#: [id number] * Semaj Mcnair III, MD - 10/26/2024 7:00 AM EDT Patient Name: Blair Gilbert Date: 1985 Billing #: [id number] Date of Procedure: 10/25/2024 - 10/26/2024 Diagnosis: Chronic Hepatic Failure without coma Procedure: 1. Orthotopic Liver Transplant 2. Back Bench Preparation Donor Liver 3. Temporary portocaval shunt 4. Perihepatic packing for control of hemorrhage 5. Placement of external choledochal stent 6. Temporary abdominal closure Attending surgeons: Semaj Mcnair III, MD Feather Renovator Surgeon(s): Sveta Judge MD Findings: Whole organ [...] This donor was ABO O and UNOSID [id number], Match Run [id number]. This was a 42-year-old donation after circulatory [...] After completion of the outflow anastomosis, a Persian clamp was placed across the donor suprahepatic [...] artery flows were then measured with the Antenovastem device. The portal flow was 3.4 L/min [...] Sveta Alves III, MD Anesthesia: General Staff: Fish Bait Processing Supervisor: Mak Maher RN; Marty Clark RN Scrub Person: ST Angela Resident: Thuy Leon MD nail machine operator: Jose Daniel Arana, RONALDO Estimated Blood Loss: [...] Number of days: 5 Surgery Information: -UNOS#: [id number] -ABO: O to O -Recipient: SLK candidate [...] 1:19 PM EDTAssociated Order(s): IP CONSULT TO HOGSHEAD WEIGHER [facility] Transplant Discharge Education Note Assessment: [...] Gomez, MSN, RN, NPD- Diabetes Education Office [phone] Schedule: M-F 8:00am-4:30pm * Ben Weiss, RD - 10/27/2024 4:06 PM EDTAssociated Order(s): IP CONSULT TO NUTRITION SERVICES; IP CONSULT TO NUTRITION SERVICES TXP - Initial [facility] Medical Nutrition Therapy Reason(s) for [...] I/O: +23.2L net volume. Last BM Date: (EXTERNAL AUDITOR). Admit Weight: 270 lb (122.5 kg) Current [...] Based on DBW of 93.1 kg Kcals/day: 9555-7024 (25-30 kcals/kg) Protein g/day: 140-190 (1.5-2.0 g/kg) [...] Dietitian - Solid Organ Transplant Contact via [employer] Chat * Lavell Kramer MD - 10/27/2024 11:09 AM EDTAssociated Order(s): INPATIENT CONSULT TO TRANSPLANT INFECTIOUS DISEASES Infectious Disease Consultation Patient: Blair Gilbert CSN: [id number] Assessment & Plan 39 y.o. M s/p [...] blood cx's if febrile Lavell Kramer MD [phone] Chief Complaint Long Qtc History of Present [...] Strain: Low Risk (07/09/2024) Received from [facility] Overall Financial Resource Strain (CARDIA) Difficulty [...] No Physical Activity: Unknown (07/14/2024) Received from [facility] Exercise Vital Sign Days of Exercise per Week: Patient unable to answer Minutes of Exercise per Session: Not on file Stress: Patient Unable To Answer (07/14/2024) Received from [facility] [place] [facility] - Occupational Stress Questionnaire Feeling of Stress : Patient unable to answer Social Connections: Patient Unable To Answer (07/14/2024) Received from [facility] Social Connection and Isolation Panel [...] to 4 times a day. DEXCOM G7 SOFT DRINK POWDER MIXER Misc Use reader as directed. DEXCOM G7 [...] times a day. naloxone (NARCAN) 4 mg/actuation Juliaetta Apply 1 spray in one nostril if [...] CKD IIIb/IV: - Presumed s/t HRS - Chief Librarian Music Department: Yovanny Curran at [facility] Allograft Function: S/p SLK 10/25- [...] 10/27/2024 1500 Gross per 24 hour Intake 65326.28 ml Output 5950 ml Net 6403.28 ml Heme/Anemia: WBC: 5.8 Goal HgB 10-12 mg/dL Hgb: 7.5 Plt 50 Iron: 128 on 10/25/2024 Ferritin 623.2 on 10/25/2024 TIBC: SEE COMMENT on 10/25/2024 % Iron Saturation: SEE COMMENT on 10/25/2024 [id number]: No results found for requested labs within [...] - Monitor renal function. No indications for SENIOR MECHANICAL ESTIMATOR. Good UOP - Noted KT US WNL [...] preliminary until attending attestation. Lauren Santos, DNP, CONSUMER RELATIONS SPECIALIST, FOLDER TAPER OPERATOR- Transplant Nephrology [phone] Preferred contact: secure chat [1] Allergies Allergen [...] MD, MEd, FASN * Marcellus Hebert, DIRECTOR ON AIR, TELETYPESETTER - 10/27/2024 10:21 AM EDT HEALTH Care Management/Social Work Assessment Patient Information Patient Name: Blair Gilbert Hospital Day: 2 Inpatient/Observation: Inpatient Admit Date: 10/25/2024 Admission Diagnosis: Liver transplant recipient (CMS-HCC) [Z94.4] Attending provider: Semaj Mcnair III, MD PCP: Enedina Mcguire NP Home Pharmacy: [facility] [address] [place] [address] [address] [facility] [address] [facility] [address] Issues related to obtaining medications: N/A Payor Information Medical Insurance Coverage: Payor: [facility] / Plan: [facility] [...] History: 12 weeks of CD Treatement at [facility] Do you need Substance Abuse Treatment Resources?: [...] currently resides with his spouse [facility] [place]. 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 Patient's LNOK:Spouse, Abdiaziz Gilbert, Patient has no current or past history of suicidal/homicidal ideation. Patient has a history of mental health diagnoses, PTSD and Generalized Anxiety Disorder. Patient is connected with TransplantPsychiatrist and prescribed Prozac. Patient has a history of alcohol use and has completed 12 weeksof CD Treatment at [facility]. Spouse explained that he will [...] as appropriate. NUBIA Escalera, RONALDO Phone Number: [phone] * John Moreno MD - 10/26/2024 3:41 AM EDT SURGICAL ICU CONSULT NOTE 10/26/2024 3:41 AM Name: Blair Gilbert CSN: [id number] HPI: Blair Gilbert is a 39 y.o. [...] at 9:00 PM naloxone (NARCAN) 4 mg/actuation Juliaetta Apply 1 spray in one nostril if [...] % 250 mL infusion 2.5 mcg/min (10/26/24 2438) insulin regular in 0.9 % sodium chloride norepinephrine 18 mcg/min (10/26/24 8388) vasopressin 0.04 Units/min (10/26/24 4124) PRN Meds: heparin (porcine) 5,000 unit/mL 10,000 [...] input(s): PHART , PCO2 , PO2ART , AZH7EAE , BEART in the last 72 hours. [...] at baseline or with provocation, shows no mlvti-ho-hdrx atrial level shunt. - Pulmonary arteries: Systolic [...] IV pantoprazole while intubated, NPO Last BM: EXTERNAL AUDITOR Bowel regimen: Senna/Miralax when able Nausea: Zofran PRN FLUID/ELECTROLYTES Recent Labs 10/25/24 2217 NA 137 K 2.1* CL 100 CO2 20* BUN 74* CREATININE 3.87* CALCIUM 9.3 PHOS 5.9* GLUCOSE 114* Intake/Output Summary (Last 24 hours) at 10/26/2024 0341 Last data filed at 10/26/2024 0326 Gross per 24 hour Intake 14828 ml Output 675 ml Net 50724 ml IV Fluids: EPINEPHrine (ADRENALIN) 10 mg [...] results for input(s): TEGANGLE , TEGKTIME , KDLBSHBN93 , TEGMAXAMPL , TEGRTIME , CBMZ in [...] in sodium chloride 0.9% 100 mL IVPB (Tmss4Xib) 2 g Every 6 hours 10/26/2024 -- Admin Instructions: Use Rgve0Bkc Adapter - Mix Thoroughly Before Administration Notes to Pharmacy: On food and beverage order clerk estimated creatinine clearance is 35.9 mL/min (A) (based on SCr of 3.87 mg/dL (H)). Route: Intravenous AMPicillin 2 g in sodium chloride 0.9% 100 mL IVPB (Ksbc4Ekw) 2 g Once 10/26/2024 -- Admin Instructions: Use Vcpu9Tps Adapter - Mix Thoroughly Before Administration Notes to Pharmacy: On food and beverage order clerk estimated creatinine clearance is 35.9 mL/min (A) (based on SCr of 3.87 mg/dL (H)). Route: Intravenous cefTRIAXone (ROCEPHIN) 2 g in sodium chloride 0.9 % 100 mL Hdph6Wie (Completed) 2 g Once 10/25/2024 10/26/2024 Admin Instructions: Use Doiz1Tiu Adapter - Mix Thoroughly Before Administration Route: [...] 47 (H) 10/26/2024 PO2ART 127 (H) 10/26/2024 ICK6SPY 21 (L) 10/26/2024 BEART -5.4 (L) 10/26/2024 WBR6PDA 94.6 (L) 10/26/2024 W1KJIMEH 98 10/26/2024 P:F ratio = 363 CARDIOVASCULAR: [...] Acute Care Surgery, and Surgical Critical Care [facility] Academic Office [phone] For Transfers, call [phone] documented in this encounter Nursing Notes * [...] Progressing * Care Coordination - NUBIA Escalera, TELETYPESETTER - 10/31/2024 11:34 AM EDT [facility] Case Management/Social Work Department Progress Note Patient Information Patient Name: Blair Gilbert Hospital day: 6 Inpatient/Observation: Inpatient Level of Care: Transplant Admit date: 10/25/2024 Admission diagnosis: Liver transplant recipient (CMS-HCC) [Z94.4] PMH: has a past medical history of Alcoholic cirrhosis of liver (CMS-HCC), Esophageal varices (CMS-HCC), Hepatorenal syndrome ([facility]), Hypertension, Other hyperlipidemia (07/26/2024), Renal cell carcinoma ([facility]), Thrombocytopenia ([facility]), and Thyroid disease. PCP: Enedina Mcguire NP Home Pharmacy: [facility] [address] [place] [address] [facility] [address] [facility] [address] [facility] Deya NAA [place] - [address] [facility] Mya [address] [facility] [place] [address] Medical Insurance Coverage: Payor: [employer] / Plan: [employer] / Product Type: *No Product type* / Other Pertinent Information MEREDITH received report from Transplant medical team. SW completed chart review. Per report patient is not medically ready to discharge. Patient recommended for home PT/OT and 2x weekly labs. MEREDITH followed up on [facility] referrals and submitted a few more C referrals. Update: MEREDITH made nurse educator aware that there were no accepting [facility] agencies([facility], [facility], [facility]) and patient would need to outpatient for PT/OT and labs. Discharge Plan Anticipated discharge plan: Home with C vs Home with outpatient Anticipated discharge date: 11/01 CM/SW will continue to follow and remain available for discharge planning needs. NUBIA Escalera, RONALDO Cell [phone] * Plan of Care - Paulette Flannery [...] PCP: Enedina Mcguire NP Home Pharmacy: [facility] [address] [place] [address] [place] [address] [facility] [address] [facility] [address] [facility] Deya NAA [place] - [address] [place] [address] [place]OME [address] Medical Insurance Coverage: Payor: [employer] [facility] [...] SW submitted blanket HHC referral to [facility] [employer] [place], [place], [place] [facility], and [facility]. Awaiting responses. SW to followpending clearance [...] available for discharge planning needs. NUBIA Rhodes, TELETYPESETTER Inpatient Dumpster Driver/Care Coordination [phone] * Plan of Care - Soco Yap [...] PCP: Enedina Mcguire NP Home Pharmacy: [facility] [address] [place] [address] [address] [facility] [address] [facility] [address] [facility] Deya - Deya [place] - [address] [place] [address] [place] [address] Medical Insurance Coverage: [facility] / Plan: [employer] [...] available for discharge planning needs. NUBIA Escalera, TELETYPESETTER Cell [phone] * Plan of Care - Elaine Carrillo [...] at all times. Outcome: Completed Problem: Non-violent, cuo-kusw-keeekrphtzo restraints Description: Less restrictive alternative interventions will [...] protection of medical procedures, or protection of emergency medical technician basic access. Outcome: Completed * Plan of Care [...] foods as appropriate. Outcome: Progressing Problem: Non-violent, ibw-fsji-uofdfmqwhum restraints Description: Less restrictive alternative interventions will [...] protection of medical procedures, or protection of emergency medical technician basic access. Outcome: Progressing * Plan of Care - Shanel Shen RN - 10/27/2024 9:00 AM EDT Problem: Non-violent, cpq-wvwc-qnyvbplykyp restraints Description: Less restrictive alternative interventions will [...] - 10/26/2024 7:41 PM EDT Problem: Non-violent, toa-iljh-agrkkpagdrr restraints Description: Less restrictive alternative interventions will [...] protection of medical procedures, or protection of emergency medical technician basic access. Outcome: Not Progressing Patient in bilateral [...] restraint flowsheet for further documentation. Problem: Non-violent, afk-hpyl-rdevvwsbaxe restraints Description: Less restrictive alternative interventions will [...] protection of medical procedures, or protection of emergency medical technician basic access. Outcome: Progressing * Plan of Care [...] [facility] ENDOSCOPY [address] [place] [address] Chris Orosco MD [address] [place] [phone] 12/05/2024 8:01 AM EDT - 12/05/2024 8:31 AM EDT Surgery [facility] ENDOSCOPY [address] [place] [phone] Chris Orosco MD [address] [place] [phone] EGD Pending Results Name Type Priority Associated [...] Routine 10/31/2024 11:59 AM EDT US DUPLEX OUL-UXFRGX-QOFOZWW COMPLETE Routine 10/31/2024 10:19 AM EDT US [...] Routine 10/28/2024 5:31 PM EDT US DUPLEX DZW-GHDYHF-PACYRGS COMPLETE STAT 10/28/2024 4:23 PM EDT US [...] Routine 10/27/2024 10:00 AM EDT US DUPLEX NVO-AHSELT-PGXPKOY COMPLETE STAT 10/27/2024 9:51 AM EDT US [...] EDT Acute kidney injury superimposed on CKD ([facility]) ME RENAL ALTRNSPLJ IMPLTJ GRF W/HOSTAGE NEGOTIATOR NEPHRECTOMY 10/27/2024 2:32 AM EDT Acute kidney injury superimposed on CKD ([facility]) 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 [...] - 100 mg/dL 11/02/2024 5:45 PM EDT [facility] Blood 11/02/2024 5:44 PM EDT 11/02/2024 5:45 PM EDT us Semaj Mcnair III, MD POINT OF CARE TEST ORDERABLES Final Result Performing Organization Address City/[facility]/ZIP Co de Phone Number [facility] [address] [place] [address] * (ABNORMAL) POC Glucose Monitoring Device (11/02/2024 3:34 PM EDT) POC Glucose Monitoring Device 208(H) 70 - 100 mg/dL 11/02/2024 3:35 PM EDT [facility] Blood 11/02/2024 3:34 PM EDT 11/02/2024 3:35 PM EDT us Semaj Mcnair III, MD POINT OF CARE TEST ORDERABLES Final Result [facility] [address] * (ABNORMAL) POC Glucose Monitoring Device (11/02/2024 1:18 PM EDT) POC Glucose Monitoring Device 225(H) 70 - 100 mg/dL 11/02/2024 1:19 PM EDT [facility] Blood 11/02/2024 1:18 PM EDT 11/02/2024 1:19 PM EDT Semaj Mcnair III, MD POINT OF CARE TEST ORDERABLES Final Result Performing Organization Address [facility] Co de Phone Number [address] * (ABNORMAL) POC Glucose Monitoring Device (11/02/2024 8:59 AM EDT) POC Glucose Monitoring Device 129(H) 70 - 100 mg/dL 11/02/2024 9:00 AM EDT [facility] Blood 11/02/2024 8:59 AM EDT 11/02/2024 9:00 AM EDT Semaj Mcnair III, MD POINT OF CARE TEST ORDERABLES Final Result Performing Organization Address [facility] de Phone Number [address] * Tacrolimus level (11/02/2024 5:53 AM EDT) Pathologist [facility] Tacrolimus (LC-MS) 7.4 3.0 - 15.0 ng/mL 11/02/2024 2:23 PM EDT [facility] Comment:Performed via liquid chromatography tandem [...] AM EDT 11/02/2024 6:12 AM EDT Hillary Hensleysaramiller PharmD LAB BLOOD ORDERABLES Denisse l Result [facility] [address] [place] [address], [facility] * (ABNORMAL) Renal Function Panel w/EGFR (11/02/2024 5:53 AM EDT) Sodium 140 133 - 146 mmol/L 11/02/2024 6:47 AM EDT [facility] Potassium 3.3(L) 3.5 - 5.3 mmol/L 11/02/2024 6:47 AM EDT [facility] Chloride 107 98 - 110 mmol/L 11/02/2024 6:47 AM EDT [facility] CO2 25 21 - 33 mmol/L 11/02/2024 6:47 AM EDT [facility] Anion Gap 8 3 - 16 mmol/L 11/02/2024 6:47 AM EDT [facility] BUN 31(H) 7 - 25 mg/dL 11/02/2024 6:47 AM EDT [facility] Creatinine 1.08 0.60 - 1.30 mg/dL 11/02/2024 6:47 AM EDT [facility] Glucose 150(H) 70 - 100 mg/dL 11/02/2024 6:47 AM EDT [facility] Calcium 7.8(L) 8.6 - 10.3 mg/dL 11/02/2024 6:47 AM EDT [facility] Phosphorus 2.0(L) 2.1 - 4.7 mg/dL 11/02/2024 6:47 AM EDT [facility] Albumin 3.2(L) 3.5 - 5.7 g/dL 11/02/2024 6:47 AM EDT [facility] Osmolality, Calculated 299 278 - 305 mOsm/kg 11/02/2024 6:47 AM EDT [facility] EGFR 88 11/02/2024 6:47 AM EDT [facility] Comment:As of 2021, the estimated [...] 11/02/2024 6:12 AM EDT Beata Garland Evens [facility] LAB BLOOD ORDERABLES Denisse l Result Performing Organization Address City/[facility] Co de Phone Number [facility] [address] * (ABNORMAL) Magnesium (11/02/2024 5:53 AM EDT) Magnesium 1.3(L) 1.5 - 2.5 mg/dL 11/02/2024 6:47 AM EDT [facility] Plasma 11/02/2024 5:53 AM EDT 11/02/2024 6:12 AM EDT [facility] BLOOD ORDERABLES Denisse l Result Performing Organization Address [facility]/ZIP Co de Phone Number [facility] [address] * (ABNORMAL) Hepatic Function Panel (11/02/2024 5:53 AM EDT) Total Bilirubin 1.6(H) 0.0 - 1.5 mg/dL 11/02/2024 6:47 AM EDT [facility] Bilirubin, Direct 0.81(H) 0.00 - 0.40 mg/dL 11/02/2024 6:47 AM EDT [facility] AST 30 13 - 39 U/L 11/02/2024 6:47 AM EDT [facility] ALT 66(H) 7 - 52 U/L 11/02/2024 6:47 AM EDT [facility] Alkaline Phosphatase 126(H) 36 - 125 U/L 11/02/2024 6:47 AM EDT [facility] Total Protein 4.6(L) 6.4 - 8.9 g/dL 11/02/2024 6:47 AM EDT [facility] Albumin 3.2(L) 3.5 - 5.7 g/dL 11/02/2024 6:47 AM EDT [facility] Bilirubin, Indirect 0.79 0.00 - 1.10 mg/dL 11/02/2024 6:47 AM EDT [facility] Plasma 11/02/2024 5:53 AM EDT 11/02/2024 6:12 AM EDT us Beata Horner CONSULTING TECHNICAL MANAGER LAB BLOOD ORDERABLES Denisse l Result [facility] [address] * (ABNORMAL) CBC (11/02/2024 5:53 AM EDT) WBC 5.8 3.8 - 10.8 10E3/uL 11/02/2024 6:21 AM EDT [facility] RBC 3.12(L) 4.20 - 5.80 10E6/uL 11/02/2024 6:21 AM EDT [facility] Hemoglobin 9.2(L) 13.2 - 17.1 g/dL 11/02/2024 6:21 AM EDT [facility] Hematocrit 27.5(L) 38.5 - 50.0 % 11/02/2024 6:21 AM EDT [facility] MCV 87.9 80.0 - 100.0 fL 11/02/2024 6:21 AM EDT [facility] MCH 29.5 27.0 - 33.0 pg 11/02/2024 6:21 AM EDT [facility] MCHC 33.5 32.0 - 36.0 g/dL 11/02/2024 6:21 AM EDT [facility] RDW 17.5(H) 11.0 - 15.0 % 11/02/2024 6:21 AM EDT [facility] Platelets 61(L) 140 - 400 10E3/uL 11/02/2024 6:21 AM EDT [facility] MPV 7.9 7.5 - 11.5 fL 11/02/2024 6:21 AM EDT [facility] Whole Blood 11/02/2024 5:53 AM EDT 11/02/2024 6:12 AM EDT Beata Horner [facility] LAB BLOOD ORDERABLES Denisse l Result [facility] [address] [facility]. [address] * (ABNORMAL) POC Glucose Monitoring Device (11/01/2024 9:26 PM EDT) POC Glucose Monitoring Device 199(H) 70 - 100 mg/dL 11/01/2024 9:27 PM EDT [facility] Blood 11/01/2024 9:26 PM EDT 11/01/2024 9:27 PM EDT Semaj Mcnair III, MD POINT OF CARE TEST ORDERABLES Final Result Performing Organization Address [facility]/ZIP Co de Phone Number [facility] [address] [facility]. [address] * (ABNORMAL) POC Glucose Monitoring Device (11/01/2024 5:04 PM EDT) POC Glucose Monitoring Device 255(H) 70 - 100 mg/dL 11/01/2024 5:05 PM EDT [facility] Blood 11/01/2024 5:04 PM EDT 11/01/2024 5:05 PM EDT Semaj Mcnair III, MD POINT OF CARE TEST ORDERABLES Final Result [facility] [address] [facility]. [address] * (ABNORMAL) Renal Function Panel w/EGFR, STAT (11/01/2024 2:17 PM EDT) Sodium 139 133 - 146 mmol/L 11/01/2024 3:10 PM EDT [facility] Potassium 3.3(L) 3.5 - 5.3 mmol/L 11/01/2024 3:10 PM EDT [facility] Chloride 107 98 - 110 mmol/L 11/01/2024 3:10 PM EDT [facility] CO2 24 21 - 33 mmol/L 11/01/2024 3:10 PM EDT [facility] Anion Gap 8 3 - 16 mmol/L 11/01/2024 3:10 PM EDT [facility] BUN 35(H) 7 - 25 mg/dL 11/01/2024 3:10 PM EDT [facility] Creatinine 1.22 0.60 - 1.30 mg/dL 11/01/2024 3:10 PM EDT [facility] Glucose 203(H) 70 - 100 mg/dL 11/01/2024 3:10 PM EDT [facility] Calcium 8.3(L) 8.6 - 10.3 mg/dL 11/01/2024 3:10 PM EDT [facility] Phosphorus 2.2 2.1 - 4.7 mg/dL 11/01/2024 3:10 PM EDT [facility] Albumin 3.4(L) 3.5 - 5.7 g/dL 11/01/2024 3:10 PM EDT [facility] Osmolality, Calculated 302 278 - 305 mOsm/kg 11/01/2024 3:10 PM EDT [facility] EGFR 76 11/01/2024 3:10 PM EDT [facility] Comment:As of 2021, the estimated [...] Marks MD LAB BLOOD ORDERABLES Final Result [facility] [address] [id number], [facility] * X-ray Portable Abdomen [...] Arredondo MD at 11/01/2024 1:10 PM EDT us Shay Plata MD IMG DIAGNOSTIC IMAGI NG ORDERABLES Final Result * (ABNORMAL) POC Glucose Monitoring Device (11/01/2024 12:22 PM EDT) POC Glucose Monitoring Device 144(H) 70 - 100 mg/dL 11/01/2024 12:23 PM EDT [facility] Blood 11/01/2024 12:2 2 PM EDT 11/01/2024 12:23 PM EDT us Semaj Mcnair III, MD POINT OF CARE TEST ORDERABLES Final Result Performing Organization Address City/[facility]/ZIP Co de Phone Number [facility] [address] [place] [address] * (ABNORMAL) POC Glucose Monitoring Device (11/01/2024 8:50 AM EDT) POC Glucose Monitoring Device 175(H) 70 - 100 mg/dL 11/01/2024 8:51 AM EDT [facility] Blood 11/01/2024 8:50 AM EDT 11/01/2024 8:51 AM EDT us Semaj Mcnair III, MD POINT OF CARE TEST ORDERABLES Final Result Performing Organization Address City/[facility]/ZIP Co de Phone Number [facility] [address] [place] [address] * Tacrolimus level (11/01/2024 6:01 AM EDT) Tacrolimus (LC-MS) 7.5 3.0 - 15.0 ng/mL 11/01/2024 12:14 PM EDT [facility] Comment:Performed via liquid chromatography tandem [...] PharmD LAB BLOOD ORDERABLES Denisse valle Result [facility] [address] [facility] [place] [address], [facility] * (ABNORMAL) Renal Function Panel w/EGFR (11/01/2024 6:01 AM EDT) Sodium 139 133 - 146 mmol/L 11/01/2024 6:57 AM EDT [facility] Potassium 3.3(L) 3.5 - 5.3 mmol/L 11/01/2024 6:57 AM EDT [facility] Chloride 108 98 - 110 mmol/L 11/01/2024 6:57 AM EDT [facility] CO2 22 21 - 33 mmol/L 11/01/2024 6:57 AM EDT [facility] Anion Gap 9 3 - 16 mmol/L 11/01/2024 6:57 AM EDT [facility] BUN 37(H) 7 - 25 mg/dL 11/01/2024 6:57 AM EDT [facility] Creatinine 1.30 0.60 - 1.30 mg/dL 11/01/2024 6:57 AM EDT [facility] Glucose 163(H) 70 - 100 mg/dL 11/01/2024 6:57 AM EDT [facility] Calcium 8.2(L) 8.6 - 10.3 mg/dL 11/01/2024 6:57 AM EDT [facility] Phosphorus 2.9 2.1 - 4.7 mg/dL 11/01/2024 6:57 AM EDT [facility] Albumin 3.1(L) 3.5 - 5.7 g/dL 11/01/2024 6:57 AM EDT [facility] Osmolality, Calculated 300 278 - 305 mOsm/kg 11/01/2024 6:57 AM EDT [facility] EGFR 71 11/01/2024 6:57 AM EDT [facility] Comment:As of 2021, the estimated [...] AM EDT 11/01/2024 6:20 AM EDT us ([employer] Evens CONSULTING TECHNICAL MANAGER LAB BLOOD ORDERABLES Denisse l Result Performing Organization Address City/[facility]/ZIP Co de Phone Number [facility] [address] * Magnesium (11/01/2024 6:01 AM EDT) Magnesium 1.5 1.5 - 2.5 mg/dL 11/01/2024 6:57 AM EDT [facility] Plasma 11/01/2024 6:01 AM EDT 11/01/2024 6:20 AM EDT [employer] CONSULTING TECHNICAL MANAGER LAB BLOOD ORDERABLES Denisse l Result [facility] [address] [facility]. [address] * (ABNORMAL) Hepatic Function Panel (11/01/2024 6:01 AM EDT) Total Bilirubin 2.0(H) 0.0 - 1.5 mg/dL 11/01/2024 6:57 AM EDT [facility] Bilirubin, Direct 1.06(H) 0.00 - 0.40 mg/dL 11/01/2024 6:57 AM EDT [facility] AST 21 13 - 39 U/L 11/01/2024 6:57 AM EDT [facility] ALT 62(H) 7 - 52 U/L 11/01/2024 6:57 AM EDT [facility] Alkaline Phosphatase 114 36 - 125 U/L 11/01/2024 6:57 AM EDT [facility] Total Protein 4.6(L) 6.4 - 8.9 g/dL 11/01/2024 6:57 AM EDT [facility] Albumin 3.1(L) 3.5 - 5.7 g/dL 11/01/2024 6:57 AM EDT [facility] Bilirubin, Indirect 0.94 0.00 - 1.10 mg/dL 11/01/2024 6:57 AM EDT [facility] Plasma 11/01/2024 6:01 AM EDT 11/01/2024 6:20 AM EDT Beata Horner CONSULTING TECHNICAL MANAGER LAB BLOOD ORDERABLES Denisse l Result [facility] [address] [facility]. [address] * (ABNORMAL) CBC (11/01/2024 6:01 AM EDT) WBC 5.9 3.8 - 10.8 10E3/uL 11/01/2024 6:29 AM EDT [facility] RBC 3.19(L) 4.20 - 5.80 10E6/uL 11/01/2024 6:29 AM EDT [facility] Hemoglobin 9.5(L) 13.2 - 17.1 g/dL 11/01/2024 6:29 AM EDT [facility] Hematocrit 27.8(L) 38.5 - 50.0 % 11/01/2024 6:29 AM EDT [facility] MCV 87.1 80.0 - 100.0 fL 11/01/2024 6:29 AM EDT [facility] MCH 29.9 27.0 - 33.0 pg 11/01/2024 6:29 AM EDT [facility] MCHC 34.3 32.0 - 36.0 g/dL 11/01/2024 6:29 AM EDT [facility] RDW 17.4(H) 11.0 - 15.0 % 11/01/2024 6:29 AM EDT [facility] Platelets 56(L) 140 - 400 10E3/uL 11/01/2024 6:29 AM EDT [facility] MPV 8.3 7.5 - 11.5 fL 11/01/2024 6:29 AM EDT [facility] Whole Blood 11/01/2024 6:01 AM EDT 11/01/2024 6:19 AM EDT us Beata Horner CONSULTING TECHNICAL MANAGER LAB BLOOD ORDERABLES Denisse l Result [facility] [address] * (ABNORMAL) POC Glucose Monitoring Device (10/31/2024 9:15 PM EDT) [facility] POC Glucose Monitoring Device 171(H) 70 - 100 mg/dL 10/31/2024 9:15 PM EDT [facility] Blood 10/31/2024 9:15 PM EDT 10/31/2024 9:15 PM EDT Semaj Mcnair III, MD POINT OF CARE TEST ORDERABLES Final Result [facility] [address] * (ABNORMAL) POC Glucose Monitoring Device (10/31/2024 5:56 PM EDT) POC Glucose Monitoring Device 179(H) 70 - 100 mg/dL 10/31/2024 5:57 PM EDT [facility] Blood 10/31/2024 5:56 PM EDT 10/31/2024 5:57 PM EDT us Semaj Mcnair III, MD POINT OF CARE TEST ORDERABLES Final Result [facility] [address] [place] [address], [facility] * CT Abdomen and Pelvis WO [...] Adrenal gland: No focal nodule seen. Kidneys: [place] kidneys noted with nonobstructing calcifications on the right. Findings of postsurgical changes in the left [place] kidney. Mild right hydronephrosis without an obstructive [...] Adrenal gland: No focal nodule seen. Kidneys: [place] kidneys noted with nonobstructing calcifications on theright. Findings of postsurgical changes in the left [place] kidney. Mildright hydronephrosis without an obstructive course [...] 400 ms QTc: 456 ms P [place]: 49 degrees R [place]: 3 degrees T [place]: 14 degrees Diagnosis Line: NORMAL SINUS RHYTHM ^ NORMAL ECG ^ ^ Confirmed by MD JEANETTE, TORI ([id number]) on 11/02/2024 6:56:52 AM Priti Geiger [facility] ECG ORDERABLES Final Result MUSE * (ABNORMAL) Urinalysis w/Rfl to Microscopic (10/31/2024 1:18 PM EDT) Color, UA Straw Yellow,Straw 10/31/2024 1:46 PM EDT [facility] Clarity, UA Clear Clear 10/31/2024 1:46 PM EDT [facility] Specific [place], UA 1.013 1.005 - 1.035 10/31/2024 1:46 PM EDT [facility] pH, UA 6.5 5.0 - 8.0 10/31/2024 1:46 PM EDT [facility] Protein, UA Negative Negative mg/dL 10/31/2024 1:46 PM EDT [facility] Glucose, UA Negative Negative mg/dL 10/31/2024 1:46 PM EDT [facility] Ketones, UA Negative Negative mg/dL 10/31/2024 1:46 PM EDT [facility] Bilirubin, UA Negative Negative 10/31/2024 1:46 PM EDT [facility] Blood, UA Large(A) Negative 10/31/2024 1:46 PM EDT [facility] Nitrite, UA Negative Negative 10/31/2024 1:46 PM EDT [facility] Urobilinogen, UA <2.0 0.2 - 1.9 mg/dL 10/31/2024 1:46 PM EDT [facility] Leukocyte Esterase, UA Negative Negative 10/31/2024 1:46 PM EDT [facility] RBC, UA >100(H) 0 - 3 /HPF 10/31/2024 1:46 PM EDT [facility] WBC, UA 3 0 - 5 /HPF 10/31/2024 1:46 PM EDT [facility] Hyaline Casts, UA 3(H) 0 - 2 /LPF 10/31/2024 1:46 PM EDT [facility] Urine 10/31/2024 1:18 PM EDT 10/31/2024 1:32 PM EDT Priti Geiger [facility] URINE ORDERABLES Final Result [facility] [address] * (ABNORMAL) Post Kidney Transplant Urine Culture (10/31/2024 1:18 PM EDT) Culture Result Enterococcus faecium, Vancomycin Resistant(A) [facility] Comment: 1,000- <10,000 cfu/mL Identified [...] SARMAD >=32: Resistant Comment:See Results Priti Geiger CONSULTING TECHNICAL MANAGER MICROBIOLOGY - GENERAL ORDERA BLES Final Result [facility] [address] * (ABNORMAL) POC Glucose Monitoring Device (10/31/2024 11:59 AM EDT) POC Glucose Monitoring Device 130(H) 70 - 100 mg/dL 10/31/2024 12:21 PM EDT [facility] Blood 10/31/2024 11:5 9 AM EDT 10/31/2024 12:21 PM EDT Semaj Mcnair III, MD POINT OF CARE TEST ORDERABLES Final Result [facility] 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 LIVER DOPPLER Duplex Doppler evaluation of transplant hepatic vasculature within normal limits. Report Verified by: Delcan Cerda MD at 10/31/2024 10:35 AM EDT Narrative 10/31/2024 10:35 AM EDT EXAM: US ABDOMEN LIMITED EXAM: US DUPLEX [id number] COMPLETE INDICATION: Post-op liver transplant COMPARISON: None [...] visualized secondary to poor acoustic windows. The [place] right kidney measures 11.6 cm in length. [...] EXAM: US ABDOMEN LIMITED EXAM: US DUPLEX [id number] COMPLETE INDICATION: Post-op liver transplant COMPARISON: None [...] well visualized secondary to poor acousticwindows. The [place] right kidney measures 11.6 cm in length. [...] at 10/31/2024 10:35 AM EDT Beata Horner CONSULTING TECHNICAL MANAGER [facility] US ORDERABLES Final R esult * US [...] 10/31/2024 10:29 AM EDT us Beata Horner [facility] IM US ORDERABLES Final R esult * US Duplex [id number]-[id number] Comp (10/31/2024 10:19 AM EDT) Anatomical Region [...] EXAM: US ABDOMEN LIMITED EXAM: US DUPLEX [id number] COMPLETE INDICATION: Post-op liver transplant COMPARISON: None [...] visualized secondary to poor acoustic windows. The [place] right kidney measures 11.6 cm in length. [...] EXAM: US ABDOMEN LIMITED EXAM: US DUPLEX [id number] COMPLETE INDICATION: Post-op liver transplant COMPARISON: None [...] well visualized secondary to poor acousticwindows. The [place] right kidney measures 11.6 cm in length. [...] at 10/31/2024 10:35 AM EDT us Beata Garlandbrook Horner CONSULTING TECHNICAL MANAGER IMG US ORDERABLES Final R esult * ECG 12-lead (MUSE) (10/31/2024 8:57 AM EDT) 10/31/2024 8:57 AM EDT Narrative MUSE - 11/01/2024 9:21 AM EDT Ventricular Rate: 83 BPM Atrial Rate: 83 BPM P-R Interval: 168 ms QRS Duration: 102 ms QT: 392 ms QTc: 460 ms P [place]: 64 degrees R [place]: -18 degrees T [place]: 7 degrees Diagnosis Line: NORMAL SINUS RHYTHM ^ NORMAL ECG ^ ^ Confirmed by MD JOE, OTIS ([id number]) on 11/01/2024 9:21:13 AM Priti Geiger CONSULTING TECHNICAL MANAGER ECG ORDERABLES Final Result MUSE * (ABNORMAL) POC Glucose Monitoring Device (10/31/2024 8:44 AM EDT) POC Glucose Monitoring Device 145(H) 70 - 100 mg/dL 10/31/2024 8:45 AM EDT [facility] Blood 10/31/2024 8:44 AM EDT 10/31/2024 8:44 AM EDT Semaj Mcnair III, MD POINT OF CARE TEST ORDERABLES Final Result Performing Organization Address City/[facility]/ZIP Co de Phone Number [facility] [address] [place] [address] * Tacrolimus level (10/31/2024 6:40 AM EDT) Tacrolimus (LC-MS) 8.4 3.0 - 15.0 ng/mL 10/31/2024 10:05 AM EDT [facility] Comment:Performed via liquid chromatography tandem [...] PharmD LAB BLOOD ORDERABLES Denisse valle Result [facility] [address] [facility] [place] [address], [facility] * (ABNORMAL) Renal Function Panel w/EGFR (10/31/2024 6:40 AM EDT) Sodium 141 133 - 146 mmol/L 10/31/2024 8:09 AM EDT [facility] Potassium 3.5 3.5 - 5.3 mmol/L 10/31/2024 8:09 AM EDT [facility] Chloride 111(H) 98 - 110 mmol/L 10/31/2024 8:09 AM EDT [facility] CO2 20(L) 21 - 33 mmol/L 10/31/2024 8:09 AM EDT [facility] Anion Gap 10 3 - 16 mmol/L 10/31/2024 8:09 AM EDT [facility] BUN 54(H) 7 - 25 mg/dL 10/31/2024 8:09 AM EDT [facility] Creatinine 1.75(H) 0.60 - 1.30 mg/dL 10/31/2024 8:09 AM EDT [facility] Glucose 136(H) 70 - 100 mg/dL 10/31/2024 8:09 AM EDT [facility] Calcium 8.7 8.6 - 10.3 mg/dL 10/31/2024 8:09 AM EDT [facility] Phosphorus 4.1 2.1 - 4.7 mg/dL 10/31/2024 8:09 AM EDT [facility] Albumin 3.2(L) 3.5 - 5.7 g/dL 10/31/2024 8:09 AM EDT [facility] Osmolality, Calculated 309(H) 278 - 305 mOsm/kg 10/31/2024 8:09 AM EDT [facility] EGFR 50 10/31/2024 8:09 AM EDT [facility] Comment:As of 2021, the estimated [...] 6:40 AM EDT 10/31/2024 7:35 AM EDT [facility] BLOOD ORDERABLES Denisse l Result [facility] [address] * Magnesium (10/31/2024 6:40 AM EDT) Magnesium 1.8 1.5 - 2.5 mg/dL 10/31/2024 8:09 AM EDT [facility] Plasma 10/31/2024 6:40 AM EDT 10/31/2024 7:35 AM EDT [facility] BLOOD ORDERABLES Denisse l Result [facility] [address] * (ABNORMAL) Hepatic Function Panel (10/31/2024 6:40 AM EDT) Total Bilirubin 2.7(H) 0.0 - 1.5 mg/dL 10/31/2024 8:09 AM EDT [facility] Bilirubin, Direct 1.57(H) 0.00 - 0.40 mg/dL 10/31/2024 8:09 AM EDT [facility] AST 26 13 - 39 U/L 10/31/2024 8:09 AM EDT [facility] ALT 68(H) 7 - 52 U/L 10/31/2024 8:09 AM EDT [facility] Alkaline Phosphatase 112 36 - 125 U/L 10/31/2024 8:09 AM EDT [facility] Total Protein 4.7(L) 6.4 - 8.9 g/dL 10/31/2024 8:09 AM EDT [facility] Albumin 3.2(L) 3.5 - 5.7 g/dL 10/31/2024 8:09 AM EDT [facility] Bilirubin, Indirect 1.13(H) 0.00 - 1.10 mg/dL 10/31/2024 8:09 AM EDT [facility] Plasma 10/31/2024 6:40 AM EDT 10/31/2024 7:35 AM EDT Beata Horner CONSULTING TECHNICAL MANAGER LAB BLOOD ORDERABLES Denisse valle Result [facility] [address] * (ABNORMAL) CBC (10/31/2024 6:40 AM EDT) WBC 6.0 3.8 - 10.8 10E3/uL 10/31/2024 8:05 AM EDT [facility] RBC 3.14(L) 4.20 - 5.80 10E6/uL 10/31/2024 8:05 AM EDT [facility] Hemoglobin 9.6(L) 13.2 - 17.1 g/dL 10/31/2024 8:05 AM EDT [facility] Hematocrit 27.5(L) 38.5 - 50.0 % 10/31/2024 8:05 AM EDT [facility] MCV 87.6 80.0 - 100.0 fL 10/31/2024 8:05 AM EDT [facility] MCH 30.7 27.0 - 33.0 pg 10/31/2024 8:05 AM EDT [facility] MCHC 35.0 32.0 - 36.0 g/dL 10/31/2024 8:05 AM EDT [facility] RDW 17.9(H) 11.0 - 15.0 % 10/31/2024 8:05 AM EDT [facility] Platelets 44(L) 140 - 400 10E3/uL 10/31/2024 8:05 AM EDT [facility] Comment: CNV Specimen checked for clots. None detected. MPV 8.9 7.5 - 11.5 fL 10/31/2024 8:05 AM EDT [facility] Whole Blood 10/31/2024 6:40 AM EDT 10/31/2024 7:34 AM EDT us Beata Horner [facility] LAB BLOOD ORDERABLES Denisse l Result [facility] [address] * (ABNORMAL) POC Glucose Monitoring Device (10/30/2024 9:01 PM EDT) POC Glucose Monitoring Device 144(H) 70 - 100 mg/dL 10/30/2024 9:02 PM EDT [facility] Blood 10/30/2024 9:01 PM EDT 10/30/2024 9:01 PM EDT us Semaj Mcnair III, MD POINT OF CARE TEST ORDERABLES Final Result [facility] [address] * (ABNORMAL) POC Glucose Monitoring Device (10/30/2024 5:37 PM EDT) POC Glucose Monitoring Device 124(H) 70 - 100 mg/dL 10/30/2024 5:47 PM EDT [facility] Blood 10/30/2024 5:37 PM EDT 10/30/2024 5:47 PM EDT Semaj Mcnair III, MD POINT OF CARE TEST ORDERABLES Final Result Performing Organization Address [facility] Co de Phone Number [facility] [address] [place] [address] * (ABNORMAL) POC Glucose Monitoring Device (10/30/2024 7:26 AM EDT) POC Glucose Monitoring Device 150(H) 70 - 100 mg/dL 10/30/2024 7:27 AM EDT [facility] Blood 10/30/2024 7:26 AM EDT 10/30/2024 7:27 AM EDT Semaj Mcnair III, MD POINT OF CARE TEST ORDERABLES Final Result Performing Organization Address [facility] de Phone Number [address] * Tacrolimus level (10/30/2024 7:13 AM EDT) Pathologist [facility] Tacrolimus (LC-MS) 9.5 3.0 - 15.0 ng/mL 10/30/2024 2:53 PM EDT [facility] Comment:Performed via liquid chromatography tandem mass spectrometry. Detection limit: 1 ng/mL. Individual target concentrations may vary due to target organ and time after transplant. This test has been developed and its performance characteristics determined by [facility] which is certified under the Clinical Laboratory [...] EDT 10/30/2024 7:26 AM EDT Priti Geiger [facility] LAB BLOOD ORDERABLES Final Re sult [facility] [address] * ECG 12-lead (MUSE) (10/30/2024 6:51 AM EDT) 10/30/2024 6:51 AM EDT Narrative MUSE - 11/01/2024 9:21 AM EDT Ventricular Rate: 92 BPM Atrial Rate: 92 BPM P-R Interval: 174 ms QRS Duration: 96 ms QT: 376 ms QTc: 464 ms P [place]: 54 degrees R [place]: -24 degrees T [place]: 11 degrees Diagnosis Line: NORMAL SINUS RHYTHM ^ NORMAL ECG ^ ^ Confirmed by MD JOE, OTIS ([id number]) on 11/01/2024 9:21:09 AM Priti Geiger CONSULTING TECHNICAL MANAGER ECG ORDERABLES Final Result Performing Organization Address City/[facility]/ZIP Co de Phone Number MUSE * (ABNORMAL) Renal Function Panel w/EGFR (10/30/2024 5:41 AM EDT) Sodium 140 133 - 146 mmol/L 10/30/2024 6:18 AM EDT [facility] Potassium 3.8 3.5 - 5.3 mmol/L 10/30/2024 6:18 AM EDT [facility] Chloride 111(H) 98 - 110 mmol/L 10/30/2024 6:18 AM EDT [facility] CO2 17(L) 21 - 33 mmol/L 10/30/2024 6:18 AM EDT [facility] Anion Gap 12 3 - 16 mmol/L 10/30/2024 6:18 AM EDT [facility] BUN 62(H) 7 - 25 mg/dL 10/30/2024 6:18 AM EDT [facility] Creatinine 1.96(H) 0.60 - 1.30 mg/dL 10/30/2024 6:18 AM EDT [facility] Glucose 116(H) 70 - 100 mg/dL 10/30/2024 6:18 AM EDT [facility] Calcium 9.0 8.6 - 10.3 mg/dL 10/30/2024 6:18 AM EDT [facility] Phosphorus 4.6 2.1 - 4.7 mg/dL 10/30/2024 6:18 AM EDT [facility] Albumin 3.2(L) 3.5 - 5.7 g/dL 10/30/2024 6:18 AM EDT [facility] Osmolality, Calculated 309(H) 278 - 305 mOsm/kg 10/30/2024 6:18 AM EDT [facility] EGFR 43 10/30/2024 6:18 AM EDT [facility] Comment:As of 2021, the estimated [...] 10/30/2024 5:47 AM EDT Beata Garland [employer] CONSULTING TECHNICAL MANAGER LAB BLOOD ORDERABLES Denisse l Result [facility] [address] * Magnesium (10/30/2024 5:41 AM EDT) Magnesium 2.2 1.5 - 2.5 mg/dL 10/30/2024 6:18 AM EDT [facility] Plasma 10/30/2024 5:41 AM EDT 10/30/2024 5:47 AM EDT (In)[employer] CONSULTING TECHNICAL MANAGER LAB BLOOD ORDERABLES Denisse l Result [facility] [address] [facility] [place] [address], [facility] * (ABNORMAL) Hepatic Function Panel (10/30/2024 5:41 AM EDT) Total Bilirubin 3.6(H) 0.0 - 1.5 mg/dL 10/30/2024 6:18 AM EDT [facility] Bilirubin, Direct 1.95(H) 0.00 - 0.40 mg/dL 10/30/2024 6:18 AM EDT [facility] AST 33 13 - 39 U/L 10/30/2024 6:18 AM EDT [facility] ALT 71(H) 7 - 52 U/L 10/30/2024 6:18 AM EDT [facility] Alkaline Phosphatase 80 36 - 125 U/L 10/30/2024 6:18 AM EDT [facility] Total Protein 4.8(L) 6.4 - 8.9 g/dL 10/30/2024 6:18 AM EDT [facility] Albumin 3.2(L) 3.5 - 5.7 g/dL 10/30/2024 6:18 AM EDT [facility] Bilirubin, Indirect 1.65(H) 0.00 - 1.10 mg/dL 10/30/2024 6:18 AM EDT [facility] Plasma 10/30/2024 5:41 AM EDT 10/30/2024 5:47 AM EDT Beata Horner [facility] BLOOD ORDERABLES Denisse l Result [facility] [address] [facility] [place] [address], [facility] * (ABNORMAL) CBC (10/30/2024 5:41 AM EDT) WBC 8.1 3.8 - 10.8 10E3/uL 10/30/2024 8:06 AM EDT [facility] RBC 3.29(L) 4.20 - 5.80 10E6/uL 10/30/2024 8:06 AM EDT [facility] Hemoglobin 10.1(L) 13.2 - 17.1 g/dL 10/30/2024 8:06 AM EDT [facility] Hematocrit 28.8(L) 38.5 - 50.0 % 10/30/2024 8:06 AM EDT [facility] MCV 87.6 80.0 - 100.0 fL 10/30/2024 8:06 AM EDT [facility] MCH 30.6 27.0 - 33.0 pg 10/30/2024 8:06 AM EDT [facility] MCHC 34.9 32.0 - 36.0 g/dL 10/30/2024 8:06 AM EDT [facility] RDW 18.1(H) 11.0 - 15.0 % 10/30/2024 8:06 AM EDT [facility] Platelets 44(L) 140 - 400 10E3/uL 10/30/2024 8:06 AM EDT [facility] Comment: CNV Specimen checked for clots. None detected. MPV 8.3 7.5 - 11.5 fL 10/30/2024 8:06 AM EDT [facility] Whole Blood 10/30/2024 5:41 AM EDT 10/30/2024 5:50 AM EDT us Beata Horner [facility] BLOOD ORDERABLES Denisse l Result [facility] [address] [facility]. [address] * (ABNORMAL) POC Glucose Monitoring Device (10/29/2024 10:18 PM EDT) [facility] POC Glucose Monitoring Device 140(H) 70 - 100 mg/dL 10/29/2024 10:18 PM EDT [facility] Blood 10/29/2024 10:1 8 PM EDT 10/29/2024 10:18 PM EDT us Seamj Mcnair III, MD POINT OF CARE TEST ORDERABLES Final Result [facility] [address] [facility]. [address] * (ABNORMAL) POC Glucose Monitoring Device (10/29/2024 6:42 PM EDT) POC Glucose Monitoring Device 152(H) 70 - 100 mg/dL 10/29/2024 6:43 PM EDT [facility] Blood 10/29/2024 6:42 PM EDT 10/29/2024 6:43 PM EDT Semaj Mcnair III, MD POINT OF CARE TEST ORDERABLES Final Result [facility] [address] [place] [address]. [address] * (ABNORMAL) POC Glucose Monitoring Device (10/29/2024 11:35 AM EDT) POC Glucose Monitoring Device 130(H) 70 - 100 mg/dL 10/29/2024 11:36 AM EDT [facility] Blood 10/29/2024 11:3 5 AM EDT 10/29/2024 11:36 AM EDT Semaj Mcnair III, MD POINT OF CARE TEST ORDERABLES Final Result Performing Organization Address City/[facility]/ZIP Co de Phone Number [facility] [address] [place] [address]. [address] * ECG 12 lead (MUSE) (10/29/2024 9:34 AM EDT) 10/29/2024 9:34 AM EDT Narrative MUSE - 10/29/2024 10:34 PM EDT Ventricular Rate: 97 BPM Atrial Rate: 97 BPM P-R Interval: 186 ms QRS Duration: 104 ms QT: 382 ms QTc: 485 ms P [place]: 54 degrees R [place]: -21 degrees T [place]: 1 degrees Diagnosis Line: NORMAL SINUS RHYTHM ^ NORMAL ECG ^ Confirmed by JORGE MACIAS ([id number]) on 10/29/2024 10:34:50 PM Afshan Bear MD ECG ORDERABLES Final Result Performing Organization Address City/[facility] Co de Phone Number MUSE * Tacrolimus level (10/29/2024 8:08 AM EDT) Tacrolimus (LC-MS) 10.4 3.0 - 15.0 ng/mL 10/29/2024 2:07 PM EDT [facility] Comment:Performed via liquid chromatography tandem mass spectrometry. Detection limit: 1 ng/mL. Individual target concentrations may vary due to target organ and time after transplant. This test has been developed and its performance characteristics determined by [facility] which is certified under the Clinical Laboratory [...] EDT 10/29/2024 8:21 AM EDT Priti Geiger [facility] BLOOD ORDERABLES Final Re sult Performing Organization Address [facility] Co de Phone Number [facility] [address] * Prepare RBC, leukoreduced, 1 Units (10/29/2024 6:16 AM EDT) Product Code R9077I77 [facility] Unit Number [id number] [facility] Dispense Status Presumed Transfused_PT [facility] Blood Expiration Date [id number] [facility] Coding System [id number] [facility] Blood Bank Product Shay Plata MD BLOOD BANK PRODUCT O RDERABLES Final Result Performing Organization Address City/[facility] Co de Phone Number [facility] * Prepare RBC, leukoreduced, 1 Units (10/29/2024 6:15 AM EDT) Product Code R6258V83 [facility] Unit Number [id number] [facility] Dispense Status Presumed Transfused_PT [facility] Blood Expiration Date [id number] HC[facility] Coding System [id number] [facility] Blood Bank Product Carlos Marks MD BLOOD BANK PRODUCT ORDERABL ES Final Result [facility] * Prepare RBC, leukoreduced, 1 Units (10/29/2024 6:15 AM EDT) Product Code V7664E74 [facility] Unit Number [id number] [facility] Dispense Status Presumed Transfused_PT [facility] Blood Expiration Date [id number] HC[facility] Coding System [id number] [facility] Blood Bank Product John Moreno MD BLOOD BANK PRODUCT ORDERABLE S Final Result [facility] * (ABNORMAL) Renal Function Panel w/EGFR (10/29/2024 5:07 AM EDT) Sodium 144 133 - 146 mmol/L 10/29/2024 5:49 AM EDT [facility] Potassium 3.8 3.5 - 5.3 mmol/L 10/29/2024 5:49 AM EDT [facility] Chloride 113(H) 98 - 110 mmol/L 10/29/2024 5:49 AM EDT [facility] CO2 17(L) 21 - 33 mmol/L 10/29/2024 5:49 AM EDT [facility] Anion Gap 14 3 - 16 mmol/L 10/29/2024 5:49 AM EDT [facility] BUN 57(H) 7 - 25 mg/dL 10/29/2024 5:49 AM EDT [facility] Creatinine 1.93(H) 0.60 - 1.30 mg/dL 10/29/2024 5:49 AM EDT [facility] Glucose 110(H) 70 - 100 mg/dL 10/29/2024 5:49 AM EDT [facility] Calcium 9.3 8.6 - 10.3 mg/dL 10/29/2024 5:49 AM EDT [facility] Phosphorus 4.8(H) 2.1 - 4.7 mg/dL 10/29/2024 5:49 AM EDT [facility] Albumin 3.5 3.5 - 5.7 g/dL 10/29/2024 5:49 AM EDT [facility] Osmolality, Calculated 314(H) 278 - 305 mOsm/kg 10/29/2024 5:49 AM EDT [facility] EGFR 44 10/29/2024 5:49 AM EDT [facility] Comment:As of 2021, the estimated [...] EDT 10/29/2024 5:13 AM EDT Beata Horner CONSULTING TECHNICAL MANAGER LAB BLOOD ORDERABLES Denisse l Result Performing Organization Address City/[facility] Co de Phone Number [facility] [address] * Magnesium (10/29/2024 5:07 AM EDT) Magnesium 2.1 1.5 - 2.5 mg/dL 10/29/2024 5:49 AM EDT [facility] Plasma 10/29/2024 5:07 AM EDT 10/29/2024 5:13 AM EDT (In)[employer] CONSULTING TECHNICAL MANAGER LAB BLOOD ORDERABLES Denisse l Result [facility] [address] [facility]. [address] * (ABNORMAL) Hepatic Function Panel (10/29/2024 5:07 AM EDT) Total Bilirubin 4.2(H) 0.0 - 1.5 mg/dL 10/29/2024 5:49 AM EDT [facility] Bilirubin, Direct 2.85(H) 0.00 - 0.40 mg/dL 10/29/2024 5:49 AM EDT [facility] AST 31 13 - 39 U/L 10/29/2024 5:49 AM EDT [facility] ALT 88(H) 7 - 52 U/L 10/29/2024 5:49 AM EDT [facility] Alkaline Phosphatase 51 36 - 125 U/L 10/29/2024 5:49 AM EDT [facility] Total Protein 5.2(L) 6.4 - 8.9 g/dL 10/29/2024 5:49 AM EDT [facility] Albumin 3.5 3.5 - 5.7 g/dL 10/29/2024 5:49 AM EDT [facility] Bilirubin, Indirect 1.35(H) 0.00 - 1.10 mg/dL 10/29/2024 5:49 AM EDT [facility] Plasma 10/29/2024 5:07 AM EDT 10/29/2024 5:13 AM EDT Beata Horner CONSULTING TECHNICAL MANAGER LAB BLOOD ORDERABLES Denisse l Result [facility] [address] [facility]. [address] * (ABNORMAL) CBC (10/29/2024 5:07 AM EDT) WBC 7.8 3.8 - 10.8 10E3/uL 10/29/2024 5:38 AM EDT [facility] RBC 3.05(L) 4.20 - 5.80 10E6/uL 10/29/2024 5:38 AM EDT [facility] Hemoglobin 9.0(L) 13.2 - 17.1 g/dL 10/29/2024 5:38 AM EDT [facility] Hematocrit 26.7(L) 38.5 - 50.0 % 10/29/2024 5:38 AM EDT [facility] MCV 87.4 80.0 - 100.0 fL 10/29/2024 5:38 AM EDT [facility] MCH 29.7 27.0 - 33.0 pg 10/29/2024 5:38 AM EDT [facility] MCHC 33.9 32.0 - 36.0 g/dL 10/29/2024 5:38 AM EDT [facility] RDW 18.3(H) 11.0 - 15.0 % 10/29/2024 5:38 AM EDT [facility] Platelets 41(L) 140 - 400 10E3/uL 10/29/2024 5:38 AM EDT [facility] Comment: CNV Specimen checked for clots. None detected. MPV 7.5 7.5 - 11.5 fL 10/29/2024 5:38 AM EDT [facility] Whole Blood 10/29/2024 5:07 AM EDT 10/29/2024 5:13 AM EDT Beata Horner CONSULTING TECHNICAL MANAGER LAB BLOOD ORDERABLES Denisse valle Result [facility] [address] [place] [address], [facility] * (ABNORMAL) TEG-Bypass/ECMO/Liver HN (Factor function, Platelet/Fibrin Clot Strength w/Clot Breakdown, Heparinase In All Channels) (10/29/2024 5:07 AM EDT) Citrated Kaolin Reaction Time (TEGECMOLIVER) 8.9 4.6 - 9.1 minutes 10/29/2024 7:04 AM EDT [facility] Citrated Kaolin W/Heparinase Reaction Time (TEGECMOLIVER) 7.4 4.3 - 8.3 minutes 10/29/2024 7:04 AM EDT [facility] Citrated Kaolin Maximum Amplitude (TEGECMOLIVER) 52.9 52.0 - 69.0 mm 10/29/2024 7:04 AM EDT [facility] Citrated Functional Fibrinogen W/Heparinase Maximum Amplitude(TEGEC MOLIVER) 20.7 15.0 - 34.0 mm 10/29/2024 7:04 AM EDT [facility] Citrated Rapid Teg W/Heparinase Maximum Amplitude (TEGECMOLIVER) 49.7(L) 53.0 - 69.0 mm 10/29/2024 7:04 AM EDT [facility] Citrated Kaolin w/Heparinase Percent Lysis (TEGECMOLIVER) 0.0 0.0 - 3.2 % 10/29/2024 7:04 AM EDT [facility] Whole Blood (Citrate) 10/29/2024 5:07 AM EDT 10/29/2024 5:10 AM EDT Kemar Sahni MD LAB BLOOD ORDERABLES Final Result Performing Organization Address City/State/[facility] Co de Phone Number [facility] [address] * (ABNORMAL) TEG-Bypass/ECMO/Liver HN (Factor function, Platelet/Fibrin Clot Strength w/Clot Breakdown, Heparinase In All Channels) (10/28/2024 11:55 PM EDT) Pathologist [facility] Citrated Kaolin Reaction Time (TEGECMOLIVER) 8.6 4.6 - 9.1 minutes 10/29/2024 2:01 AM EDT [facility] Citrated Kaolin W/Heparinase Reaction Time (TEGECMOLIVER) 8.7(H) 4.3 - 8.3 minutes 10/29/2024 2:01 AM EDT [facility] Citrated Kaolin Maximum Amplitude (TEGECMOLIVER) 47.9(L) 52.0 - 69.0 mm 10/29/2024 2:01 AM EDT [facility] Citrated Functional Fibrinogen W/Heparinase Maximum Amplitude(TEGEC MOLIVER) 22.0 15.0 - 34.0 mm 10/29/2024 2:01 AM EDT [facility] Citrated Rapid Teg W/Heparinase Maximum Amplitude (TEGECMOLIVER) 45.9(L) 53.0 - 69.0 mm 10/29/2024 2:01 AM EDT [facility] Citrated Kaolin w/Heparinase Percent Lysis (TEGECMOLIVER) 0.0 0.0 - 3.2 % 10/29/2024 2:01 AM EDT [facility] Whole Blood (Citrate) 10/28/2024 11:55 PM EDT 10/28/2024 11:58 PM EDT us Kemar Sahni MD LAB BLOOD ORDERABLES Final Result [facility] [address] [place] [address], [facility] * (ABNORMAL) CBC, STAT (10/28/2024 8:04 PM EDT) WBC 3.9 3.8 - 10.8 10E3/uL 10/28/2024 8:36 PM EDT [facility] RBC 2.66(L) 4.20 - 5.80 10E6/uL 10/28/2024 8:36 PM EDT [facility] Hemoglobin 8.0(L) 13.2 - 17.1 g/dL 10/28/2024 8:36 PM EDT [facility] Hematocrit 23.0(L) 38.5 - 50.0 % 10/28/2024 8:36 PM EDT [facility] MCV 86.4 80.0 - 100.0 fL 10/28/2024 8:36 PM EDT [facility] MCH 29.9 27.0 - 33.0 pg 10/28/2024 8:36 PM EDT [facility] MCHC 34.6 32.0 - 36.0 g/dL 10/28/2024 8:36 PM EDT [facility] RDW 18.6(H) 11.0 - 15.0 % 10/28/2024 8:36 PM EDT [facility] Platelets 29(L) 140 - 400 10E3/uL 10/28/2024 8:36 PM EDT [facility] Comment: CNV Specimen checked for clots. None detected. MPV 7.8 7.5 - 11.5 fL 10/28/2024 8:36 PM EDT [facility] Whole Blood 10/28/2024 8:04 PM EDT 10/28/2024 8:14 PM EDT Carlos Marks MD LAB BLOOD ORDERABLES Final Result Performing Organization Address [facility]/ZIP Co de Phone Number [facility] [address] * (ABNORMAL) POC Glucose Monitoring Device (10/28/2024 8:03 PM EDT) POC Glucose Monitoring Device 122(H) 70 - 100 mg/dL 10/28/2024 8:04 PM EDT [facility] Blood 10/28/2024 8:03 PM EDT 10/28/2024 8:04 PM EDT Semaj Mcnair III, MD POINT OF CARE TEST ORDERABLES Final Result Performing Organization Address [facility] Co de Phone Number [facility] [address] * (ABNORMAL) TEG-Bypass/ECMO/Liver HN (Factor function, Platelet/Fibrin Clot Strength w/Clot Breakdown, Heparinase In All Channels) (10/28/2024 6:39 PM EDT) Citrated Kaolin Reaction Time (TEGECMOLIVER) 9.0 4.6 - 9.1 minutes 10/28/2024 7:50 PM EDT [facility] Citrated Kaolin W/Heparinase Reaction Time (TEGECMOLIVER) 8.3 4.3 - 8.3 minutes 10/28/2024 7:50 PM EDT [facility] Citrated Kaolin Maximum Amplitude (TEGECMOLIVER) 47.6(L) 52.0 - 69.0 mm 10/28/2024 7:50 PM EDT [facility] Citrated Functional Fibrinogen W/Heparinase Maximum Amplitude(TEGEC MOLIVER) 20.4 15.0 - 34.0 mm 10/28/2024 7:50 PM EDT [facility] Citrated Rapid Teg W/Heparinase Maximum Amplitude (TEGECMOLIVER) 44.0(L) 53.0 - 69.0 mm 10/28/2024 7:50 PM EDT [facility] Citrated Kaolin w/Heparinase Percent Lysis (TEGECMOLIVER) 0.0 0.0 - 3.2 % 10/28/2024 7:50 PM EDT [facility] Whole Blood (Citrate) 10/28/2024 6:39 PM EDT 10/28/2024 6:42 PM EDT us Kemar Sahni MD LAB BLOOD ORDERABLES Final Result Performing Organization Address [facility] Co de Phone Number [facility] [address] [facility]. [address] * (ABNORMAL) POC Glucose Monitoring Device (10/28/2024 5:31 PM EDT) POC Glucose Monitoring Device 130(H) 70 - 100 mg/dL 10/28/2024 5:31 PM EDT [facility] Blood 10/28/2024 5:31 PM EDT 10/28/2024 5:31 PM EDT us Semaj Mcnair III, MD POINT OF CARE TEST ORDERABLES Final Result Performing Organization Address [facility] Co de Phone Number [facility] [address] [facility]. [address] * Transfuse RBC Transfusion Rate: Per dept routine (10/28/2024 5:23 PM EDT) us Shay Plata MD NURSING TREATMENT OR DERABLES - BLOOD ADMIN Final Result Performing Organization Address City/[facility]/ZIP Co de Phone Number EXTERNAL * Transfuse RBC Transfusion Rate: Per dept routine, 1 Units (10/28/2024 5:23 PM EDT) us Shay Plata MD NURSING TREATMENT OR DERABLES - BLOOD ADMIN Final Result Performing Organization Address City/[facility]/ZIP Co de Phone Number EXTERNAL * [...] EXAM: US ABDOMEN LIMITED EXAM: US DUPLEX [id number] COMPLETE INDICATION: Post-op liver transplant DATE: 10/28/2024 [...] retrohepatic inferior vena cava is patent. The [place] right kidney is partially visualized. A prominent [...] EXAM: US ABDOMEN LIMITED EXAM: US DUPLEX [id number] COMPLETE INDICATION: Post-op liver transplant DATE: 10/28/2024 [...] retrohepatic inferior vena cava is patent. The [place] right kidney is partially visualized. A prominent [...] 10/28/2024 4:42 PM EDT Shay Plata MD [facility] US ORDERABLES Fi nal Result * US Duplex [id number] Comp (10/28/2024 4:23 PM EDT) Anatomical Region [...] EXAM: US ABDOMEN LIMITED EXAM: US DUPLEX [id number] COMPLETE INDICATION: Post-op liver transplant DATE: 10/28/2024 [...] retrohepatic inferior vena cava is patent. The [place] right kidney is partially visualized. A prominent [...] EXAM: US ABDOMEN LIMITED EXAM: US DUPLEX [id number] COMPLETE INDICATION: Post-op liver transplant DATE: 10/28/2024 [...] retrohepatic inferior vena cava is patent. The [place] right kidney is partially visualized. A prominent [...] - 10.8 10E3/uL 10/28/2024 3:07 PM EDT [facility] RBC 2.44(L) 4.20 - 5.80 10E6/uL 10/28/2024 3:07 PM EDT [facility] Hemoglobin 7.5(L) 13.2 - 17.1 g/dL 10/28/2024 3:07 PM EDT [facility] Hematocrit 21.4(L) 38.5 - 50.0 % 10/28/2024 3:07 PM EDT [facility] MCV 87.6 80.0 - 100.0 fL 10/28/2024 3:07 PM EDT [facility] MCH 30.6 27.0 - 33.0 pg 10/28/2024 3:07 PM EDT [facility] MCHC 34.9 32.0 - 36.0 g/dL 10/28/2024 3:07 PM EDT [facility] RDW 18.4(H) 11.0 - 15.0 % 10/28/2024 3:07 PM EDT [facility] Platelets 30(L) 140 - 400 10E3/uL 10/28/2024 3:07 PM EDT [facility] Comment: CNV Specimen checked for clots. None detected. MPV 7.7 7.5 - 11.5 fL 10/28/2024 3:07 PM EDT [facility] Whole Blood 10/28/2024 2:49 PM EDT 10/28/2024 2:53 PM EDT Carlos Marks MD LAB BLOOD ORDERABLES Final Result Performing Organization Address [facility] Co de Phone Number [facility] [address] * ECG 12 lead (MUSE) (10/28/2024 1:22 PM EDT) 10/28/2024 1:22 PM EDT Narrative MUSE - 10/29/2024 10:34 PM EDT Ventricular Rate: 104 BPM Atrial Rate: 104 BPM P-R Interval: 172 ms QRS Duration: 90 ms QT: 354 ms QTc: 465 ms P [place]: 58 degrees R [place]: -19 degrees T [place]: 38 degrees Diagnosis Line: SINUS TACHYCARDIA ^ OTHERWISE NORMAL ECG ^ ^ Confirmed by JORGE MACIAS ([id number]) on 10/29/2024 10:34:22 PM Hillary Fernandes PharmD ECG ORDERABLES Final Res ult Performing Organization Address [facility] Co de Phone Number MUSE * (ABNORMAL) POC Glucose Monitoring Device (10/28/2024 12:54 PM EDT) [facility] POC Glucose Monitoring Device 119(H) 70 - 100 mg/dL 10/28/2024 12:55 PM EDT [facility] Blood 10/28/2024 12:5 4 PM EDT 10/28/2024 12:55 PM EDT Semaj Mcnair III, MD POINT OF CARE TEST ORDERABLES Final Result Performing Organization Address [facility] Co de Phone Number [facility] [address] [facility]. [address] * Transfuse RBC Transfusion Rate: Per dept routine (10/28/2024 12:31 PM EDT) Carlos Marks MD NURSING TREATMENT ORDERABLE S - BLOOD ADMIN Final Result Performing Organization Address [facility] Co de Phone Number EXTERNAL * Transfuse RBC Transfusion Rate: Per dept routine, 1 Units (10/28/2024 12:31 PM EDT) us Carlos Marks MD NURSING TREATMENT ORDERABLE S - BLOOD ADMIN Final Result EXTERNAL * Protime-INR, STAT (10/28/2024 11:09 AM EDT) Protime 14.3 12.1 - 15.1 seconds 10/28/2024 11:29 AM EDT [facility] INR 1.1 0.9 - 1.1 10/28/2024 11:29 AM EDT [facility] Comment: RECOMMENDED THERAPEUTIC RANGES USING INR : Stable oral anticoagulant therapy: 2.0 - 3.0 Mechanical prosthetic heart valve: 2.5 - 3.5 Recurrent acute myocardial infarction: 2.5 - 3.5 Plasma 10/28/2024 11:0 9 AM EDT 10/28/2024 11:16 AM EDT us Carlos Marks MD LAB BLOOD ORDERABLES Final Result Performing Organization Address [facility] Co de Phone Number [facility] [address] * (ABNORMAL) Lactic Acid, STAT (10/28/2024 11:09 AM EDT) Lactate 0.3(L) 0.5 - 2.2 mmol/L 10/28/2024 11:37 AM EDT [facility] Plasma 10/28/2024 11:0 9 AM EDT 10/28/2024 11:15 AM EDT us Carlos Marks MD LAB BLOOD ORDERABLES Final Result Performing Organization Address City/[facility] Co de Phone Number [facility] [address] * Magnesium, STAT (10/28/2024 11:09 AM EDT) Magnesium 2.1 1.5 - 2.5 mg/dL 10/28/2024 11:47 AM EDT [facility] Plasma 10/28/2024 11:0 9 AM EDT 10/28/2024 11:16 AM EDT us Carlos Marks MD LAB BLOOD ORDERABLES Final Result [facility] [address] [place] [address], [facility] * (ABNORMAL) Renal Function Panel w/EGFR, STAT (10/28/2024 11:09 AM EDT) Sodium 144 133 - 146 mmol/L 10/28/2024 11:47 AM EDT [facility] Potassium 3.4(L) 3.5 - 5.3 mmol/L 10/28/2024 11:47 AM EDT [facility] Chloride 112(H) 98 - 110 mmol/L 10/28/2024 11:47 AM EDT [facility] CO2 22 21 - 33 mmol/L 10/28/2024 11:47 AM EDT [facility] Anion Gap 10 3 - 16 mmol/L 10/28/2024 11:47 AM EDT [facility] BUN 57(H) 7 - 25 mg/dL 10/28/2024 11:47 AM EDT [facility] Creatinine 2.01(H) 0.60 - 1.30 mg/dL 10/28/2024 11:47 AM EDT [facility] Glucose 108(H) 70 - 100 mg/dL 10/28/2024 11:47 AM EDT [facility] Calcium 8.8 8.6 - 10.3 mg/dL 10/28/2024 11:47 AM EDT [facility] Phosphorus 4.0 2.1 - 4.7 mg/dL 10/28/2024 11:47 AM EDT [facility] Albumin 3.3(L) 3.5 - 5.7 g/dL 10/28/2024 11:47 AM EDT [facility] Osmolality, Calculated 314(H) 278 - 305 mOsm/kg 10/28/2024 11:47 AM EDT [facility] EGFR 42 10/28/2024 11:47 AM EDT [facility] Comment:As of 2021, the estimated [...] Marks MD LAB BLOOD ORDERABLES Final Result [facility] [address] [place] [address], [facility] * (ABNORMAL) TEG-Bypass/ECMO/Liver HN (Factor function, Platelet/Fibrin Clot Strength w/Clot Breakdown, Heparinase In All Channels) (10/28/2024 11:09 AM EDT) [facility] Citrated Kaolin Reaction Time (TEGECMOLIVER) 9.2(H) 4.6 - 9.1 minutes 10/28/2024 12:30 PM EDT [facility] Citrated Kaolin W/Heparinase Reaction Time (TEGECMOLIVER) 9.6(H) 4.3 - 8.3 minutes 10/28/2024 12:30 PM EDT [facility] Citrated Kaolin Maximum Amplitude (TEGECMOLIVER) 51.2(L) 52.0 - 69.0 mm 10/28/2024 12:30 PM EDT [facility] Citrated Functional Fibrinogen W/Heparinase Maximum Amplitude(TEGEC MOLIVER) 21.6 15.0 - 34.0 mm 10/28/2024 12:30 PM EDT [facility] Citrated Rapid Teg W/Heparinase Maximum Amplitude (TEGECMOLIVER) 49.3(L) 53.0 - 69.0 mm 10/28/2024 12:30 PM EDT [facility] Citrated Kaolin w/Heparinase Percent Lysis (TEGECMOLIVER) 0.0 0.0 - 3.2 % 10/28/2024 12:30 PM EDT [facility] Whole Blood (Citrate) 10/28/2024 11:09 AM EDT 10/28/2024 11:14 AM EDT us Kemar Sahni MD LAB BLOOD ORDERABLES Final Result [facility] [address] [place] [address], [facility] * (ABNORMAL) CBC (10/28/2024 10:21 AM EDT) WBC 4.1 3.8 - 10.8 10E3/uL 10/28/2024 10:41 AM EDT [facility] RBC 2.30(L) 4.20 - 5.80 10E6/uL 10/28/2024 10:41 AM EDT [facility] Hemoglobin 7.1(L) 13.2 - 17.1 g/dL 10/28/2024 10:41 AM EDT [facility] Hematocrit 20.4(L) 38.5 - 50.0 % 10/28/2024 10:41 AM EDT [facility] MCV 88.5 80.0 - 100.0 fL 10/28/2024 10:41 AM EDT [facility] MCH 30.7 27.0 - 33.0 pg 10/28/2024 10:41 AM EDT [facility] MCHC 34.7 32.0 - 36.0 g/dL 10/28/2024 10:41 AM EDT [facility] RDW 18.7(H) 11.0 - 15.0 % 10/28/2024 10:41 AM EDT [facility] Platelets 37(L) 140 - 400 10E3/uL 10/28/2024 10:41 AM EDT [facility] Comment: CNV Specimen checked for clots. None detected. MPV 7.6 7.5 - 11.5 fL 10/28/2024 10:41 AM EDT [facility] Whole Blood 10/28/2024 10:2 1 AM EDT 10/28/2024 10:29 AM EDT Carlos Marks MD LAB BLOOD ORDERABLES Final Result [facility] [address] [facility]. [address] * POC Glucose Monitoring Device (10/28/2024 9:07 AM EDT) POC Glucose Monitoring Device 97 70 - 100 mg/dL 10/28/2024 9:08 AM EDT [facility] Blood 10/28/2024 9:07 AM EDT 10/28/2024 9:08 AM EDT Semaj Mcnair III, MD POINT OF CARE TEST ORDERABLES Final Result Performing Organization Address City/[facility] Co de Phone Number [facility] [address] [facility]. [address] * (ABNORMAL) Tacrolimus level (10/28/2024 8:20 AM EDT) Pathologist [facility] [place] Tacrolimus (LC-MS) <1.0(L) 3.0 - 15.0 ng/mL 10/28/2024 2:02 PM EDT [facility] Comment:Performed via liquid chromatography tandem [...] EDT 10/28/2024 8:29 AM EDT Priti Geiger [facility] LAB BLOOD ORDERABLES Final Re sult Performing Organization Address [facility] Co de Phone Number [facility] [address] [place] [address]. [address] * (ABNORMAL) POC Glucose Monitoring Device (10/28/2024 8:10 AM EDT) POC Glucose Monitoring Device 102(H) 70 - 100 mg/dL 10/28/2024 8:11 AM EDT [facility] Blood 10/28/2024 8:10 AM EDT 10/28/2024 8:11 AM EDT Semaj Mcnair III, MD POINT OF CARE TEST ORDERABLES Final Result Performing Organization Address [facility] Co de Phone Number [facility] [address] [place] [address]. [address] * POC Glucose Monitoring Device (10/28/2024 6:17 AM EDT) POC Glucose Monitoring Device 100 70 - 100 mg/dL 10/28/2024 6:18 AM EDT [facility] Blood 10/28/2024 6:17 AM EDT 10/28/2024 6:18 AM EDT Semaj Mcnair III, MD POINT OF CARE TEST ORDERABLES Final Result Performing Organization Address [facility] [facility] Co de Phone Number [address] * Prepare Platelets, leukoreduced (10/28/2024 6:15 AM EDT) Product Code X2137C64 HCLL Unit Number [id number] HCLL Dispense Status Presumed Transfused_PT HCLL Blood Expiration Date HCLL Coding System [id number] HCLL Product Code G9567T92 HCLL Unit Number [id number] HCLL Dispense Status Presumed Transfused_PT HCLL Blood Expiration Date HCLL Coding System [id number] HCLL us Attending Provider Unknown BLOOD BANK PRODUCT OR DERABLES Final Result Performing Organization Address [facility] Co de Phone Number HCLL * Prepare Fresh Frozen Plasma (10/28/2024 6:15 AM EDT) Product Code H2908Q37 HCLL Unit Number [id number] HCLL Dispense Status Released from Crossmatch_RE HCLL Blood Expiration Date HCLL Coding System [id number] HCLL Product Code F0418M11 HCLL Unit Number [id number] HCLL Dispense Status Presumed Transfused_PT HCLL Blood Expiration Date HCLL Coding System [id number] HCLL Product Code J1669A74 HCLL Unit Number [id number] HCLL Dispense Status Released from Crossmatch_RE HCLL Blood Expiration Date HCLL Coding System [id number] HCLL Product Code W3514Y53 HCLL Unit Number [id number] HCLL Dispense Status Presumed Transfused_PT HCLL Blood Expiration Date HCLL Coding System EADH616 HCLL Product Code T4275T00 HCLL Unit Number [id number] HCLL Dispense Status Released from Crossmatch_RE HCLL Blood Expiration Date [id number] HCLL Coding System [id number] HCLL us Attending Provider Unknown BLOOD BANK PRODUCT OR DERABLES Final Result Performing Organization Address City/[facility] Co de Phone Number HCLL * Prepare RBC, leukoreduced (10/28/2024 6:15 AM EDT) Product Code X2889X56 HCLL Unit Number [id number] HCLL Dispense Status Released from Crossmatch_RE HCLL Blood Expiration Date [id number] HCLL Coding System NZVY832 HCLL Product Code J0804W64 HCLL Unit Number [id number] HCLL Dispense Status Presumed Transfused_PT HCLL Blood Expiration Date [id number] HCLL Coding System JMLU036 HCLL Product Code A4387T30 HCLL Unit Number [id number] HCLL Dispense Status Released from Crossmatch_RE HCLL Blood Expiration Date [id number] HCLL Coding System BOVW354 HCLL Product Code T9783A93 HCLL Unit Number [id number] HCLL Dispense Status Presumed Transfused_PT HCLL Blood Expiration Date [id number] HCLL Coding System WRBX608 HCLL Product Code B2906L21 HCLL Unit Number [id number] HCLL Dispense Status Released from Crossmatch_RE HCLL Blood Expiration Date [id number] HCLL Coding System [id number] HCLL us Attending Provider Unknown BLOOD BANK PRODUCT OR DERABLES Final Result Performing Organization Address [facility]/ZIP Co de Phone Number HCLL * Prepare Platelets, leukoreduced, 1 Units (10/28/2024 6:15 AM EDT) Product Code U5544R14 HCLL Unit Number [id number] HCLL Dispense Status Presumed Transfused_PT HCLL Blood Expiration Date [id number] HCLL Coding System [id number] HCLL Blood Bank Product us John Pina MD BLOOD BANK PRODUCT ORDERABLES F inal Result Performing Organization Address City/[facility]/ZIP Co de Phone Number HCLL * Prepare Cryoprecipitate, 1 Units (10/28/2024 6:15 AM EDT) Product Code W4435R03 HCLL Unit Number [id number] HCLL Dispense Status Presumed Transfused_PT HCLL Blood Expiration Date HCLL Coding System LZSE887 HCLL Product Code T4525Z11 HCLL Unit Number [id number] HCLL Dispense Status Presumed Transfused_PT HCLL Blood Expiration Date HCLL Coding System GBST265 HCLL Blood Bank Product John Pina MD BLOOD BANK PRODUCT ORDERABLES F inal Result Performing Organization Address [facility] de Phone Number HCLL * Prepare Fresh Frozen Plasma, 1 Units (10/28/2024 6:15 AM EDT) Product Code Y3003O08 HCLL Unit Number [id number] HCLL Dispense Status Presumed Transfused_PT HCLL Blood Expiration Date [id number] HCLL Coding System LRTN158 HCLL Blood Bank Product John Pina MD BLOOD BANK PRODUCT ORDERABLES F inal Result Performing Organization Address [facility] Phone Number HCLL * Prepare Cryoprecipitate, 1 Units (10/28/2024 6:15 AM EDT) Product Code J7496T59 HCLL Unit Number [id number] HCLL Dispense Status Presumed Transfused_PT HCLL Blood Expiration Date [id number] HCLL Coding System [id number] HCLL Product Code U5387R69 HCLL Unit Number [id number] HCLL Dispense Status Presumed Transfused_PT HCLL Blood Expiration Date [id number] HCLL Coding System KADW875 HCLL Product Code T2096F33 HCLL Unit Number [id number] HCLL Dispense Status Presumed Transfused_PT HCLL Blood Expiration Date 926028392623 HCLL Coding System MRCK335 HCLL Product Code M2144P87 HCLL Unit Number [id number] HCLL Dispense Status Presumed Transfused_PT HCLL Blood Expiration Date [id number] HCLL Coding System [id number] HCLL Blood Bank Product John Pina MD BLOOD BANK PRODUCT ORDERABLES F inal Result Performing Organization Address [facility] Co de Phone Number HCLL * (ABNORMAL) POC Glucose Monitoring Device (10/28/2024 4:55 AM EDT) POC Glucose Monitoring Device 104(H) 70 - 100 mg/dL 10/28/2024 4:57 AM EDT [facility] Blood 10/28/2024 4:55 AM EDT 10/28/2024 4:57 AM EDT Semaj Mcnair III, MD POINT OF CARE TEST ORDERABLES Final Result [facility] [address] [id number], [facility] * TEG-Bypass/ECMO/Liver HN (Factor function, Platelet/Fibrin Clot Strength w/Clot Breakdown, Heparinase In All Channels) (10/28/2024 4:13 AM EDT) Citrated Kaolin Reaction Time (TEGECMOLIVER) 7.2 4.6 - 9.1 minutes 10/28/2024 5:38 AM EDT [facility] Citrated Kaolin W/Heparinase Reaction Time (TEGECMOLIVER) 7.8 4.3 - 8.3 minutes 10/28/2024 5:38 AM EDT [facility] Citrated Kaolin Maximum Amplitude (TEGECMOLIVER) 53.0 52.0 - 69.0 mm 10/28/2024 5:38 AM EDT [facility] Citrated Functional Fibrinogen W/Heparinase Maximum Amplitude(TEGEC MOLIVER) 21.4 15.0 - 34.0 mm 10/28/2024 5:38 AM EDT [facility] Citrated Rapid Teg W/Heparinase Maximum Amplitude (TEGECMOLIVER) 54.7 53.0 - 69.0 mm 10/28/2024 5:38 AM EDT [facility] Citrated Kaolin w/Heparinase Percent Lysis (TEGECMOLIVER) 0.0 0.0 - 3.2 % 10/28/2024 5:38 AM EDT [facility] Whole Blood (Citrate) 10/28/2024 4:13 AM EDT 10/28/2024 4:28 AM EDT Kemar Sahni MD LAB BLOOD ORDERABLES Final Result [facility] [address] * Protime-INR (10/28/2024 4:13 AM EDT) Protime 14.6 12.1 - 15.1 seconds 10/28/2024 4:53 AM EDT [facility] INR 1.1 0.9 - 1.1 10/28/2024 4:53 AM EDT [facility] Comment: RECOMMENDED THERAPEUTIC RANGES USING INR : Stable oral anticoagulant therapy: 2.0 - 3.0 Mechanical prosthetic heart valve: 2.5 - 3.5 Recurrent acute myocardial infarction: 2.5 - 3.5 Plasma 10/28/2024 4:13 AM EDT 10/28/2024 4:41 AM EDT Kemar Sahni MD LAB BLOOD ORDERABLES Final Result Performing Organization Address City/[facility] Co de Phone Number [facility] [address] [facility]. [address] * Magnesium (10/28/2024 4:13 AM EDT) Magnesium 2.2 1.5 - 2.5 mg/dL 10/28/2024 5:15 AM EDT [facility] Plasma 10/28/2024 4:13 AM EDT 10/28/2024 4:41 AM EDT Kemar Sahni MD LAB BLOOD ORDERABLES Final Result [facility] [address] [facility]. [address] * (ABNORMAL) Hepatic Function Panel (10/28/2024 4:13 AM EDT) Total Bilirubin 2.3(H) 0.0 - 1.5 mg/dL 10/28/2024 5:15 AM EDT [facility] Bilirubin, Direct 1.67(H) 0.00 - 0.40 mg/dL 10/28/2024 5:15 AM EDT [facility] AST 44(H) 13 - 39 U/L 10/28/2024 5:15 AM EDT [facility] ALT 101(H) 7 - 52 U/L 10/28/2024 5:15 AM EDT [facility] Alkaline Phosphatase 26(L) 36 - 125 U/L 10/28/2024 5:15 AM EDT [facility] Total Protein 4.5(L) 6.4 - 8.9 g/dL 10/28/2024 5:15 AM EDT [facility] Albumin 3.1(L) 3.5 - 5.7 g/dL 10/28/2024 5:15 AM EDT [facility] Bilirubin, Indirect 0.63 0.00 - 1.10 mg/dL 10/28/2024 5:15 AM EDT [facility] Plasma 10/28/2024 4:13 AM EDT 10/28/2024 4:41 AM EDT us Kemar Sahni MD LAB BLOOD ORDERABLES Final Result Performing Organization Address City/State/[facility] Co de Phone Number [facility] [address] [id number], [facility] * (ABNORMAL) Renal Function Panel w/EGFR (10/28/2024 4:13 AM EDT) Sodium 142 133 - 146 mmol/L 10/28/2024 5:15 AM EDT [facility] Potassium 3.5 3.5 - 5.3 mmol/L 10/28/2024 5:15 AM EDT [facility] Chloride 111(H) 98 - 110 mmol/L 10/28/2024 5:15 AM EDT [facility] CO2 22 21 - 33 mmol/L 10/28/2024 5:15 AM EDT [facility] Anion Gap 9 3 - 16 mmol/L 10/28/2024 5:15 AM EDT [facility] BUN 58(H) 7 - 25 mg/dL 10/28/2024 5:15 AM EDT [facility] Creatinine 2.24(H) 0.60 - 1.30 mg/dL 10/28/2024 5:15 AM EDT [facility] Glucose 103(H) 70 - 100 mg/dL 10/28/2024 5:15 AM EDT [facility] Calcium 9.1 8.6 - 10.3 mg/dL 10/28/2024 5:15 AM EDT [facility] Phosphorus 4.8(H) 2.1 - 4.7 mg/dL 10/28/2024 5:15 AM EDT [facility] Albumin 3.1(L) 3.5 - 5.7 g/dL 10/28/2024 5:15 AM EDT [facility] Osmolality, Calculated 310(H) 278 - 305 mOsm/kg 10/28/2024 5:15 AM EDT [facility] EGFR 37 10/28/2024 5:15 AM EDT [facility] Comment:As of 2021, the estimated [...] Sahni MD LAB BLOOD ORDERABLES Final Result [facility] [address] [place] [address], [facility] * (ABNORMAL) CBC (10/28/2024 4:13 AM EDT) Pathologist [facility] [place] WBC 4.5 3.8 - 10.8 10E3/uL 10/28/2024 5:09 AM EDT [facility] RBC 2.39(L) 4.20 - 5.80 10E6/uL 10/28/2024 5:09 AM EDT [facility] Hemoglobin 7.3(L) 13.2 - 17.1 g/dL 10/28/2024 5:09 AM EDT [facility] Hematocrit 21.0(L) 38.5 - 50.0 % 10/28/2024 5:09 AM EDT [facility] MCV 87.8 80.0 - 100.0 fL 10/28/2024 5:09 AM EDT [facility] MCH 30.5 27.0 - 33.0 pg 10/28/2024 5:09 AM EDT [facility] MCHC 34.7 32.0 - 36.0 g/dL 10/28/2024 5:09 AM EDT [facility] RDW 18.7(H) 11.0 - 15.0 % 10/28/2024 5:09 AM EDT [facility] Platelets 38(L) 140 - 400 10E3/uL 10/28/2024 5:09 AM EDT [facility] Comment: CNV Specimen checked for clots. None detected. MPV 7.6 7.5 - 11.5 fL 10/28/2024 5:09 AM EDT [facility] Whole Blood 10/28/2024 4:13 AM EDT 10/28/2024 4:41 AM EDT Kemar Sahni MD LAB BLOOD ORDERABLES Final Result [facility] [address] * (ABNORMAL) POC Glucose Monitoring Device (10/28/2024 4:04 AM EDT) Pathologist [facility] [place] POC Glucose Monitoring Device 103(H) 70 - 100 mg/dL 10/28/2024 4:05 AM EDT [facility] Blood 10/28/2024 4:04 AM EDT 10/28/2024 4:05 AM EDT us Semaj Mcnair III, MD POINT OF CARE TEST ORDERABLES Final Result Performing Organization Address [facility] Co de Phone Number [facility] [address] * (ABNORMAL) POC Glucose Monitoring Device (10/28/2024 3:00 AM EDT) POC Glucose Monitoring Device 106(H) 70 - 100 mg/dL 10/28/2024 3:01 AM EDT [facility] Blood 10/28/2024 3:00 AM EDT 10/28/2024 3:01 AM EDT us Semaj Mcnair III, MD POINT OF CARE TEST ORDERABLES Final Result Performing Organization Address [facility] Co de Phone Number [facility] [address] [facility]. [address] * (ABNORMAL) POC Glucose Monitoring Device (10/28/2024 2:32 AM EDT) POC Glucose Monitoring Device 109(H) 70 - 100 mg/dL 10/28/2024 2:33 AM EDT [facility] Blood 10/28/2024 2:32 AM EDT 10/28/2024 2:33 AM EDT Semaj Mcnair III, MD POINT OF CARE TEST ORDERABLES Final Result Performing Organization Address City/[facility] Co de Phone Number [facility] [address] [facility]. [address] * (ABNORMAL) POC Glucose Monitoring Device (10/28/2024 2:14 AM EDT) POC Glucose Monitoring Device 115(H) 70 - 100 mg/dL 10/28/2024 2:15 AM EDT [facility] Blood 10/28/2024 2:14 AM EDT 10/28/2024 2:15 AM EDT Semaj Mcnair III, MD POINT OF CARE TEST ORDERABLES Final Result Performing Organization Address [facility] Co de Phone Number [facility] [address] * (ABNORMAL) POC Glucose Monitoring Device (10/28/2024 2:03 AM EDT) POC Glucose Monitoring Device 101(H) 70 - 100 mg/dL 10/28/2024 2:04 AM EDT [facility] Blood 10/28/2024 2:03 AM EDT 10/28/2024 2:04 AM EDT Semaj Mcnair III, MD POINT OF CARE TEST ORDERABLES Final Result Performing Organization Address [facility] de Phone Number [facility] [address] * Transfuse RBC Transfusion Rate: Per dept routine (10/28/2024 1:51 AM EDT) John Moreno MD NURSING TREATMENT ORDERABLES - BLOOD ADMIN Final Result Performing Organization Address [facility] de Phone Number EXTERNAL * Transfuse RBC Transfusion Rate: Per dept routine, 1 Units (10/28/2024 1:51 AM EDT) John Moreno MD NURSING TREATMENT ORDERABLES - BLOOD ADMIN Final Result Performing Organization Address [facility] de Phone Number EXTERNAL * (ABNORMAL) TEG-Bypass/ECMO/Liver HN (Factor function, Platelet/Fibrin Clot Strength w/Clot Breakdown, Heparinase In All Channels) (10/28/2024 12:05 AM EDT) Citrated Kaolin Reaction Time (TEGECMOLIVER) 7.5 4.6 - 9.1 minutes 10/28/2024 1:22 AM EDT [facility] Citrated Kaolin W/Heparinase Reaction Time (TEGECMOLIVER) 7.7 4.3 - 8.3 minutes 10/28/2024 1:22 AM EDT [facility] Citrated Kaolin Maximum Amplitude (TEGECMOLIVER) 54.4 52.0 - 69.0 mm 10/28/2024 1:22 AM EDT [facility] Citrated Functional Fibrinogen W/Heparinase Maximum Amplitude(TEGEC MOLIVER) 20.4 15.0 - 34.0 mm 10/28/2024 1:22 AM EDT [facility] Citrated Rapid Teg W/Heparinase Maximum Amplitude (TEGECMOLIVER) 51.0(L) 53.0 - 69.0 mm 10/28/2024 1:22 AM EDT [facility] Citrated Kaolin w/Heparinase Percent Lysis (TEGECMOLIVER) 0.0 0.0 - 3.2 % 10/28/2024 1:22 AM EDT [facility] Whole Blood (Citrate) 10/28/2024 12:05 AM EDT 10/28/2024 12:09 AM EDT Kemar Sahni MD LAB BLOOD ORDERABLES Final Result Performing Organization Address City/[facility]/ZIP Co de Phone Number [facility] [address] * Magnesium (10/28/2024 12:05 AM EDT) Pathologist [facility] [place] Magnesium 2.2 1.5 - 2.5 mg/dL 10/28/2024 1:59 AM EDT [facility] Plasma 10/28/2024 12:0 5 AM EDT 10/28/2024 12:11 AM EDT Kemar Sahni MD LAB BLOOD ORDERABLES Final Result [facility] [address] * (ABNORMAL) Renal Function Panel w/EGFR (10/28/2024 12:05 AM EDT) Sodium 144 133 - 146 mmol/L 10/28/2024 1:59 AM EDT [facility] Potassium 3.4(L) 3.5 - 5.3 mmol/L 10/28/2024 1:59 AM EDT [facility] Chloride 112(H) 98 - 110 mmol/L 10/28/2024 1:59 AM EDT [facility] CO2 19(L) 21 - 33 mmol/L 10/28/2024 1:59 AM EDT [facility] Anion Gap 13 3 - 16 mmol/L 10/28/2024 1:59 AM EDT [facility] BUN 59(H) 7 - 25 mg/dL 10/28/2024 1:59 AM EDT [facility] Creatinine 2.42(H) 0.60 - 1.30 mg/dL 10/28/2024 1:59 AM EDT [facility] Glucose 118(H) 70 - 100 mg/dL 10/28/2024 1:59 AM EDT [facility] Calcium 9.0 8.6 - 10.3 mg/dL 10/28/2024 1:59 AM EDT [facility] Phosphorus 5.3(H) 2.1 - 4.7 mg/dL 10/28/2024 1:59 AM EDT [facility] Albumin 3.1(L) 3.5 - 5.7 g/dL 10/28/2024 1:59 AM EDT [facility] Osmolality, Calculated 316(H) 278 - 305 mOsm/kg 10/28/2024 1:59 AM EDT [facility] EGFR 34 10/28/2024 1:59 AM EDT [facility] Comment:As of 2021, the estimated [...] Sahni MD LAB BLOOD ORDERABLES Final Result [facility] [address] [id number], [facility] * (ABNORMAL) Differential (10/28/2024 12:05 AM EDT) Neutrophils Relative 88.6(H) 40.0 - 80.0 % 10/28/2024 12:41 AM EDT [facility] Lymphocytes Relative 2.5(L) 15.0 - 45.0 % 10/28/2024 12:41 AM EDT [facility] Monocytes Relative 6.1 0.0 - 12.0 % 10/28/2024 12:41 AM EDT [facility] Eosinophils Relative 2.4 0.0 - 8.0 % 10/28/2024 12:41 AM EDT [facility] Basophils Relative 0.4 0.0 - 1.0 % 10/28/2024 12:41 AM EDT [facility] nRBC 0 0 - 0 /100 WBC 10/28/2024 12:41 AM EDT [facility] Neutrophils Absolute 4,341 1,520 - 8,640 /uL 10/28/2024 12:41 AM EDT [facility] Lymphocytes Absolute 123(L) 570 - 4,860 /uL 10/28/2024 12:41 AM EDT [facility] Monocytes Absolute 299 0 - 1,296 /uL 10/28/2024 12:41 AM EDT [facility] Eosinophils Absolute 118 0 - 864 /uL 10/28/2024 12:41 AM EDT [facility] Basophils Absolute 20 0 - 108 /uL 10/28/2024 12:41 AM EDT [facility] Whole Blood 10/28/2024 12:0 5 AM EDT 10/28/2024 12:11 AM EDT Kemar Sahni MD LAB BLOOD ORDERABLES Final Result [facility] [address] * (ABNORMAL) CBC (10/28/2024 12:05 AM EDT) [facility] WBC 4.9 3.8 - 10.8 10E3/uL 10/28/2024 12:41 AM EDT [facility] RBC 2.18(L) 4.20 - 5.80 10E6/uL 10/28/2024 12:41 AM EDT [facility] Hemoglobin 6.7(L) 13.2 - 17.1 g/dL 10/28/2024 12:41 AM EDT [facility] Hematocrit 19.2(L) 38.5 - 50.0 % 10/28/2024 12:41 AM EDT [facility] MCV 87.8 80.0 - 100.0 fL 10/28/2024 12:41 AM EDT [facility] MCH 30.6 27.0 - 33.0 pg 10/28/2024 12:41 AM EDT [facility] MCHC 34.8 32.0 - 36.0 g/dL 10/28/2024 12:41 AM EDT [facility] RDW 19.6(H) 11.0 - 15.0 % 10/28/2024 12:41 AM EDT [facility] Platelets 45(L) 140 - 400 10E3/uL 10/28/2024 12:41 AM EDT [facility] Comment: CNV Specimen checked for clots. None detected. MPV 7.8 7.5 - 11.5 fL 10/28/2024 12:41 AM EDT [facility] Whole Blood 10/28/2024 12:0 5 AM EDT 10/28/2024 12:11 AM EDT Kemar Sahni MD LAB BLOOD ORDERABLES Final Result [facility] [address] [facility]. [address] * (ABNORMAL) POC Glucose Monitoring Device (10/28/2024 12:03 AM EDT) POC Glucose Monitoring Device 122(H) 70 - 100 mg/dL 10/28/2024 12:04 AM EDT [facility] Blood 10/28/2024 12:0 3 AM EDT 10/28/2024 12:04 AM EDT us Semaj Mcnair III, MD POINT OF CARE TEST ORDERABLES Final Result Performing Organization Address City/[facility]/ZIP Co de Phone Number [facility] [address] [place] [address]. [address] * (ABNORMAL) POC Glucose Monitoring Device (10/27/2024 10:03 PM EDT) POC Glucose Monitoring Device 127(H) 70 - 100 mg/dL 10/27/2024 10:03 PM EDT [facility] Blood 10/27/2024 10:0 3 PM EDT 10/27/2024 10:03 PM EDT Semaj Mcnair III, MD POINT OF CARE TEST ORDERABLES Final Result Performing Organization Address [facility] Co de Phone Number [address] * (ABNORMAL) POC Glucose Monitoring Device (10/27/2024 8:06 PM EDT) POC Glucose Monitoring Device 128(H) 70 - 100 mg/dL 10/27/2024 8:45 PM EDT [facility] Blood 10/27/2024 8:06 PM EDT 10/27/2024 8:45 PM EDT us Semaj Mcnair III, MD POINT OF CARE TEST ORDERABLES Final Result Performing Organization Address City/[facility] Co de Phone Number [facility] [address] [place] [address]. [address] * (ABNORMAL) POC Glucose Monitoring Device (10/27/2024 6:00 PM EDT) POC Glucose Monitoring Device 128(H) 70 - 100 mg/dL 10/27/2024 6:00 PM EDT [facility] Blood 10/27/2024 6:00 PM EDT 10/27/2024 6:00 PM EDT Semaj Mcnair III, MD POINT OF CARE TEST ORDERABLES Final Result Performing Organization Address City/[facility]/ZIP Co de Phone Number [facility] [address] * Lactic Acid, STAT (10/27/2024 5:41 PM EDT) Lactate 0.5 0.5 - 2.2 mmol/L 10/27/2024 6:28 PM EDT [facility] Plasma 10/27/2024 5:41 PM EDT 10/27/2024 5:49 PM EDT Narrative [facility] - 10/27/2024 6:28 PM EDT Redraw John Moreno MD LAB BLOOD ORDERABLES Final R esult [facility] [address] * (ABNORMAL) Hepatic Function Panel, STAT (10/27/2024 5:13 PM EDT) Total Bilirubin 1.7(H) 0.0 - 1.5 mg/dL 10/27/2024 5:50 PM EDT [facility] Bilirubin, Direct 1.17(H) 0.00 - 0.40 mg/dL 10/27/2024 5:50 PM EDT [facility] AST 60(H) 13 - 39 U/L 10/27/2024 5:50 PM EDT [facility] ALT 134(H) 7 - 52 U/L 10/27/2024 5:50 PM EDT [facility] Alkaline Phosphatase 27(L) 36 - 125 U/L 10/27/2024 5:50 PM EDT [facility] Total Protein 4.1(L) 6.4 - 8.9 g/dL 10/27/2024 5:50 PM EDT [facility] Albumin 2.9(L) 3.5 - 5.7 g/dL 10/27/2024 5:50 PM EDT [facility] Bilirubin, Indirect 0.53 0.00 - 1.10 mg/dL 10/27/2024 5:50 PM EDT [facility] Plasma 10/27/2024 5:13 PM EDT 10/27/2024 5:23 PM EDT us Shay Plata MD LAB BLOOD ORDERABLES Final Result [facility] [address] [place] [address], [facility] * (ABNORMAL) TEG-Bypass/ECMO/Liver HN (Factor function, Platelet/Fibrin Clot Strength w/Clot Breakdown, Heparinase In All Channels) (10/27/2024 5:13 PM EDT) [facility] Citrated Kaolin Reaction Time (TEGECMOLIVER) 8.0 4.6 - 9.1 minutes 10/27/2024 6:56 PM EDT [facility] Citrated Kaolin W/Heparinase Reaction Time (TEGECMOLIVER) 6.8 4.3 - 8.3 minutes 10/27/2024 6:56 PM EDT [facility] Citrated Kaolin Maximum Amplitude (TEGECMOLIVER) 55.4 52.0 - 69.0 mm 10/27/2024 6:56 PM EDT [facility] Citrated Functional Fibrinogen W/Heparinase Maximum Amplitude(TEGEC MOLIVER) 22.9 15.0 - 34.0 mm 10/27/2024 6:56 PM EDT [facility] Citrated Rapid Teg W/Heparinase Maximum Amplitude (TEGECMOLIVER) 50.8(L) 53.0 - 69.0 mm 10/27/2024 6:56 PM EDT [facility] Citrated Kaolin w/Heparinase Percent Lysis (TEGECMOLIVER) 0.1 0.0 - 3.2 % 10/27/2024 6:56 PM EDT [facility] Whole Blood (Citrate) 10/27/2024 5:13 PM EDT 10/27/2024 5:20 PM EDT Kemar Sahni MD LAB BLOOD ORDERABLES Final Result Performing Organization Address City/[facility] Co de Phone Number [facility] [address] [facility] * (ABNORMAL) Protime-INR (10/27/2024 5:13 PM EDT) Protime 15.2(H) 12.1 - 15.1 seconds 10/27/2024 5:40 PM EDT [facility] INR 1.1 0.9 - 1.1 10/27/2024 5:40 PM EDT [facility] Comment: RECOMMENDED THERAPEUTIC RANGES USING INR : Stable oral anticoagulant therapy: 2.0 - 3.0 Mechanical prosthetic heart valve: 2.5 - 3.5 Recurrent acute myocardial infarction: 2.5 - 3.5 Plasma 10/27/2024 5:13 PM EDT 10/27/2024 5:23 PM EDT Kemar Sahni MD LAB BLOOD ORDERABLES Final Result Performing Organization Address [facility] Co de Phone Number [facility] [address] [facility]. [address] * Magnesium (10/27/2024 5:13 PM EDT) Magnesium 2.4 1.5 - 2.5 mg/dL 10/27/2024 5:53 PM EDT [facility] Plasma 10/27/2024 5:13 PM EDT 10/27/2024 5:23 PM EDT Kemar Sahni MD LAB BLOOD ORDERABLES Final Result [facility] [address] * (ABNORMAL) Hepatic Function Panel (10/27/2024 5:13 PM EDT) Total Bilirubin 1.7(H) 0.0 - 1.5 mg/dL 10/27/2024 5:53 PM EDT [facility] Bilirubin, Direct 1.10(H) 0.00 - 0.40 mg/dL 10/27/2024 5:53 PM EDT [facility] AST 62(H) 13 - 39 U/L 10/27/2024 5:53 PM EDT [facility] ALT 134(H) 7 - 52 U/L 10/27/2024 5:53 PM EDT [facility] Alkaline Phosphatase 27(L) 36 - 125 U/L 10/27/2024 5:53 PM EDT [facility] Total Protein 4.1(L) 6.4 - 8.9 g/dL 10/27/2024 5:53 PM EDT [facility] Albumin 2.9(L) 3.5 - 5.7 g/dL 10/27/2024 5:53 PM EDT [facility] Bilirubin, Indirect 0.60 0.00 - 1.10 mg/dL 10/27/2024 5:53 PM EDT [facility] Plasma 10/27/2024 5:13 PM EDT 10/27/2024 5:23 PM EDT Kemar Sahni MD LAB BLOOD ORDERABLES Final Result Performing Organization Address City/State/[facility] Co de Phone Number [facility] [address] * (ABNORMAL) Renal Function Panel w/EGFR (10/27/2024 5:13 PM EDT) Sodium 142 133 - 146 mmol/L 10/27/2024 5:53 PM EDT [facility] Potassium 3.4(L) 3.5 - 5.3 mmol/L 10/27/2024 5:53 PM EDT [facility] Chloride 109 98 - 110 mmol/L 10/27/2024 5:53 PM EDT [facility] CO2 22 21 - 33 mmol/L 10/27/2024 5:53 PM EDT [facility] Anion Gap 11 3 - 16 mmol/L 10/27/2024 5:53 PM EDT [facility] BUN 61(H) 7 - 25 mg/dL 10/27/2024 5:53 PM EDT [facility] Creatinine 2.42(H) 0.60 - 1.30 mg/dL 10/27/2024 5:53 PM EDT [facility] Glucose 125(H) 70 - 100 mg/dL 10/27/2024 5:53 PM EDT [facility] Calcium 8.8 8.6 - 10.3 mg/dL 10/27/2024 5:53 PM EDT [facility] Phosphorus 5.7(H) 2.1 - 4.7 mg/dL 10/27/2024 5:53 PM EDT [facility] Albumin 2.9(L) 3.5 - 5.7 g/dL 10/27/2024 5:53 PM EDT [facility] Osmolality, Calculated 313(H) 278 - 305 mOsm/kg 10/27/2024 5:53 PM EDT [facility] EGFR 34 10/27/2024 5:53 PM EDT [facility] Comment:As of 2021, the estimated [...] Sahni MD LAB BLOOD ORDERABLES Final Result [facility] [address] * (ABNORMAL) CBC (10/27/2024 5:13 PM EDT) WBC 4.9 3.8 - 10.8 10E3/uL 10/27/2024 6:14 PM EDT [facility] RBC 2.44(L) 4.20 - 5.80 10E6/uL 10/27/2024 6:14 PM EDT [facility] Hemoglobin 7.4(L) 13.2 - 17.1 g/dL 10/27/2024 6:14 PM EDT [facility] Hematocrit 21.4(L) 38.5 - 50.0 % 10/27/2024 6:14 PM EDT [facility] MCV 87.6 80.0 - 100.0 fL 10/27/2024 6:14 PM EDT [facility] MCH 30.3 27.0 - 33.0 pg 10/27/2024 6:14 PM EDT [facility] MCHC 34.6 32.0 - 36.0 g/dL 10/27/2024 6:14 PM EDT [facility] RDW 19.6(H) 11.0 - 15.0 % 10/27/2024 6:14 PM EDT [facility] Platelets 47(L) 140 - 400 10E3/uL 10/27/2024 6:14 PM EDT [facility] Comment: CNV Specimen checked for clots. None detected. MPV 8.1 7.5 - 11.5 fL 10/27/2024 6:14 PM EDT [facility] Whole Blood 10/27/2024 5:13 PM EDT 10/27/2024 5:23 PM EDT us Kemar Sahni MD LAB BLOOD ORDERABLES Final Result [facility] [address] * (ABNORMAL) POC Glucose Monitoring Device (10/27/2024 3:57 PM EDT) Pathologist [facility] POC Glucose Monitoring Device 131(H) 70 - 100 mg/dL 10/27/2024 3:58 PM EDT [facility] Blood 10/27/2024 3:57 PM EDT 10/27/2024 3:58 PM EDT us Semaj Mcnair III, MD POINT OF CARE TEST ORDERABLES Final Result Performing Organization Address City/State/[facility] Co de Phone Number [facility] [address] [place] [address], [facility] * (ABNORMAL) CBC, STAT (10/27/2024 2:40 PM EDT) WBC 5.8 3.8 - 10.8 10E3/uL 10/27/2024 2:54 PM EDT [facility] RBC 2.43(L) 4.20 - 5.80 10E6/uL 10/27/2024 2:54 PM EDT [facility] Hemoglobin 7.5(L) 13.2 - 17.1 g/dL 10/27/2024 2:54 PM EDT [facility] Hematocrit 21.5(L) 38.5 - 50.0 % 10/27/2024 2:54 PM EDT [facility] MCV 88.2 80.0 - 100.0 fL 10/27/2024 2:54 PM EDT [facility] MCH 30.7 27.0 - 33.0 pg 10/27/2024 2:54 PM EDT [facility] MCHC 34.8 32.0 - 36.0 g/dL 10/27/2024 2:54 PM EDT [facility] RDW 19.1(H) 11.0 - 15.0 % 10/27/2024 2:54 PM EDT [facility] Platelets 50(L) 140 - 400 10E3/uL 10/27/2024 2:54 PM EDT [facility] MPV 7.5 7.5 - 11.5 fL 10/27/2024 2:54 PM EDT [facility] Whole Blood 10/27/2024 2:40 PM EDT 10/27/2024 2:44 PM EDT us John Moreno MD LAB BLOOD ORDERABLES Final R esult [facility] [address] [place] [id number], [facility] * (ABNORMAL) Blood Gas, Arterial, STAT (10/27/2024 2:40 PM EDT) O2 Sat, Arterial 98 10/27/2024 2:46 PM EDT [facility] FIO2 RA 10/27/2024 2:46 PM EDT [facility] pH, Arterial 7.37 7.35 - 7.45 10/27/2024 2:46 PM EDT [facility] pCO2, Arterial 35 35 - 45 mm Hg 10/27/2024 2:46 PM EDT [facility] pO2, Arterial 92 80 - 100 mm Hg 10/27/2024 2:46 PM EDT [facility] HCO3, Arterial 21(L) 22 - 26 mmol/L 10/27/2024 2:46 PM EDT [facility] CO2 Content,Arteri al 21(L) 23 - 27 mmol/L 10/27/2024 2:46 PM EDT [facility] Base Excess, Arterial -4.6(L) -2.0 - 3.0 mmol/L 10/27/2024 2:46 PM EDT [facility] %HBO2, Arterial 95.4 95.0 - 98.0 % 10/27/2024 2:46 PM EDT [facility] Carboxyhemoglo bin, Arterial 1.6 % 10/27/2024 2:46 PM EDT [facility] Comment: CARBOXYHEMOGLOBIN (CO) REFERENCE RANGES: Non-Smokers: <2 % Smokers: <8 % TOXIC: >20 % Methemoglobin, Arterial 1.0 0.0 - 1.5 % 10/27/2024 2:46 PM EDT [facility] Reduced hemoglobin, Arterial 2.1 0.0 - 5.0 % 10/27/2024 2:46 PM EDT [facility] Blood, Arterial 10/27/2024 2 :40 PM EDT 10/27/2024 2:44 PM EDT Narrative [facility] - 10/27/2024 2:46 PM EDT Post extubation us John Moreno MD LAB BLOOD ORDERABLES Final R esult [facility] [address] [facility]. [address] * (ABNORMAL) POC Glucose Monitoring Device (10/27/2024 2:06 PM EDT) [facility] POC Glucose Monitoring Device 134(H) 70 - 100 mg/dL 10/27/2024 2:06 PM EDT [facility] Blood 10/27/2024 2:06 PM EDT 10/27/2024 2:06 PM EDT us Semaj Mcnair III, MD POINT OF CARE TEST ORDERABLES Final Result Performing Organization Address [facility] Co de Phone Number [facility] [address] [facility]. [address] * (ABNORMAL) Blood gas, arterial (10/27/2024 12:35 PM EDT) [facility] O2 Sat, Arterial 99 10/27/2024 12:46 PM EDT [facility] FIO2 SBT 30% 10/27/2024 12:46 PM EDT [facility] pH, Arterial 7.35 7.35 - 7.45 10/27/2024 12:46 PM EDT [facility] pCO2, Arterial 37 35 - 45 mm Hg 10/27/2024 12:46 PM EDT [facility] pO2, Arterial 182(H) 80 - 100 mm Hg 10/27/2024 12:46 PM EDT [facility] HCO3, Arterial 21(L) 22 - 26 mmol/L 10/27/2024 12:46 PM EDT [facility] CO2 Content,Arteri al 22(L) 23 - 27 mmol/L 10/27/2024 12:46 PM EDT [facility] Base Excess, Arterial -4.8(L) -2.0 - 3.0 mmol/L 10/27/2024 12:46 PM EDT [facility] %HBO2, Arterial 96.3 95.0 - 98.0 % 10/27/2024 12:46 PM EDT [facility] Carboxyhemoglo bin, Arterial 1.7 % 10/27/2024 12:46 PM EDT [facility] Comment: CARBOXYHEMOGLOBIN (CO) REFERENCE RANGES: Non-Smokers: <2 % Smokers: <8 % TOXIC: >20 % Methemoglobin, Arterial 1.4 0.0 - 1.5 % 10/27/2024 12:46 PM EDT [facility] Reduced hemoglobin, Arterial 0.6 0.0 - 5.0 % 10/27/2024 12:46 PM EDT [facility] Blood, Arterial 10/27/2024 1 2:35 PM EDT 10/27/2024 12:42 PM EDT Narrative [facility] - 10/27/2024 12:46 PM EDT Please obtain post SBT us Shay Sifuentes MD LAB BLOOD ORDERABLES Final Resu lt [facility] [address] [place] [address], [facility] * (ABNORMAL) TEG-Bypass/ECMO/Liver HN (Factor function, Platelet/Fibrin Clot Strength w/Clot Breakdown, Heparinase In All Channels) (10/27/2024 12:07 PM EDT) [facility] Citrated Kaolin Reaction Time (TEGECMOLIVER) 7.9 4.6 - 9.1 minutes 10/27/2024 1:24 PM EDT [facility] Citrated Kaolin W/Heparinase Reaction Time (TEGECMOLIVER) 8.3 4.3 - 8.3 minutes 10/27/2024 1:24 PM EDT [facility] Citrated Kaolin Maximum Amplitude (TEGECMOLIVER) 52.0 52.0 - 69.0 mm 10/27/2024 1:24 PM EDT [facility] Citrated Functional Fibrinogen W/Heparinase Maximum Amplitude(TEGEC MOLIVER) 20.1 15.0 - 34.0 mm 10/27/2024 1:24 PM EDT [facility] Citrated Rapid Teg W/Heparinase Maximum Amplitude (TEGECMOLIVER) 49.4(L) 53.0 - 69.0 mm 10/27/2024 1:24 PM EDT [facility] Citrated Kaolin w/Heparinase Percent Lysis (TEGECMOLIVER) 0.0 0.0 - 3.2 % 10/27/2024 1:24 PM EDT [facility] Whole Blood (Citrate) 10/27/2024 12:07 PM EDT 10/27/2024 12:09 PM EDT Kemar Sahni MD LAB BLOOD ORDERABLES Final Result Performing Organization Address City/[facility]/ZIP Co de Phone Number [facility] [address] [place] [address]. [address] * (ABNORMAL) POC Glucose Monitoring Device (10/27/2024 12:01 PM EDT) POC Glucose Monitoring Device 121(H) 70 - 100 mg/dL 10/27/2024 12:02 PM EDT [facility] Blood 10/27/2024 12:0 1 PM EDT 10/27/2024 12:01 PM EDT Semaj Mcnair III, MD POINT OF CARE TEST ORDERABLES Final Result Performing Organization Address [facility] Co de Phone Number [facility] [address] [place] [address]. [address] * (ABNORMAL) POC Glucose Monitoring Device (10/27/2024 10:59 AM EDT) POC Glucose Monitoring Device 126(H) 70 - 100 mg/dL 10/27/2024 11:10 AM EDT [facility] Blood 10/27/2024 10:5 9 AM EDT 10/27/2024 11:10 AM EDT Semaj Mcnair III, MD POINT OF CARE TEST ORDERABLES Final Result Performing Organization Address City/[facility] Co de Phone Number [facility] [address] [place] [address] * ECG 12 lead (MUSE) (10/27/2024 10:17 AM EDT) 10/27/2024 10:1 7 AM EDT Narrative MUSE - 10/27/2024 2:51 PM EDT Ventricular Rate: 91 BPM Atrial Rate: 91 BPM P-R Interval: 168 ms QRS Duration: 90 ms QT: 274 ms QTc: 337 ms P [place]: 60 degrees R [place]: -30 degrees T [place]: -15 degrees Diagnosis Line: NORMAL SINUS RHYTHM ^ LEFT AXIS DEVIATION, LEFT ANTERIOR HEMIBLOCK ^ NONSPECIFIC T WAVE CHANGE ^ ABNORMAL ECG ^ ^ Confirmed by MD ROLLY, [facility] ([id number]) on 10/27/2024 2:51:52 PM Shay Sifuentes MD ECG ORDERABLES Final Result MUSE * (ABNORMAL) POC Glucose Monitoring Device (10/27/2024 10:00 AM EDT) [facility] POC Glucose Monitoring Device 121(H) 70 - 100 mg/dL 10/27/2024 10:01 AM EDT [facility] Blood 10/27/2024 10:0 0 AM EDT 10/27/2024 10:01 AM EDT Semaj Mcnair III, MD POINT OF CARE TEST ORDERABLES Final Result Performing Organization Address City/[facility] Co de Phone Number [facility] [address] * US Renal Transplant (10/27/2024 9:51 [...] 10:28 AM EDT us Sveta Judge MD [facility] US ORDERABLES Final Result * US Duplex Tad-Evu-Rkhixfk Comp (10/27/2024 9:51 AM EDT) Anatomical Region [...] EXAM: US ABDOMEN LIMITED EXAM: US DUPLEX [id number] COMPLETE INDICATION: Post-op liver transplant COMPARISON: None [...] absent.. Pancreas: Obscured by overlying bowel gas. [place] right kidney: 12.5 cm in length. Normal [...] EXAM: US ABDOMEN LIMITED EXAM: US DUPLEX [id number] COMPLETE INDICATION: Post-op liver transplant COMPARISON: None [...] absent.. Pancreas: Obscured by overlying bowel gas. [place] right kidney: 12.5 cm in length. Normal [...] EXAM: US ABDOMEN LIMITED EXAM: US DUPLEX [id number] COMPLETE INDICATION: Post-op liver transplant COMPARISON: None [...] absent.. Pancreas: Obscured by overlying bowel gas. [place] right kidney: 12.5 cm in length. Normal [...] EXAM: US ABDOMEN LIMITED EXAM: US DUPLEX [id number] COMPLETE INDICATION: Post-op liver transplant COMPARISON: None [...] absent.. Pancreas: Obscured by overlying bowel gas. [place] right kidney: 12.5 cm in length. Normal [...] - 100 mg/dL 10/27/2024 9:06 AM EDT [facility] Blood 10/27/2024 9:05 AM EDT 10/27/2024 9:06 AM EDT us Semaj Mcnair III, MD POINT OF CARE TEST ORDERABLES Final Result [facility] [address] [place] [address], [facility] * X-ray [...] Bones and Soft tissues: Unchanged. Procedure Note Chindeu Rodriges MD - 10/27/2024 EXAM: XR PORTABLE [...] - 15.1 seconds 10/27/2024 8:35 AM EDT [facility] INR 1.2(H) 0.9 - 1.1 10/27/2024 8:35 AM EDT [facility] Comment: RECOMMENDED THERAPEUTIC RANGES USING INR : Stable oral anticoagulant therapy: 2.0 - 3.0 Mechanical prosthetic heart valve: 2.5 - 3.5 Recurrent acute myocardial infarction: 2.5 - 3.5 Plasma 10/27/2024 8:16 AM EDT 10/27/2024 8:20 AM EDT John Moreno MD LAB BLOOD ORDERABLES Final R esult Performing Organization Address City/[facility]/ZIP Co de Phone Number [facility] [address] * Magnesium (10/27/2024 8:00 AM EDT) Magnesium 1.8 1.5 - 2.5 mg/dL 10/27/2024 10:50 AM EDT [facility] Plasma 10/27/2024 8:00 AM EDT 10/27/2024 10:31 AM EDT Kemar Sahni MD LAB BLOOD ORDERABLES Final Result Performing Organization Address [facility] Co de Phone Number [facility] [address] * (ABNORMAL) Renal Function Panel w/EGFR (10/27/2024 8:00 AM EDT) Sodium 142 133 - 146 mmol/L 10/27/2024 10:18 AM EDT [facility] Potassium 3.0(L) 3.5 - 5.3 mmol/L 10/27/2024 10:18 AM EDT [facility] Chloride 109 98 - 110 mmol/L 10/27/2024 10:18 AM EDT [facility] CO2 21 21 - 33 mmol/L 10/27/2024 10:18 AM EDT [facility] Anion Gap 12 3 - 16 mmol/L 10/27/2024 10:18 AM EDT [facility] BUN 59(H) 7 - 25 mg/dL 10/27/2024 10:18 AM EDT [facility] Creatinine 2.54(H) 0.60 - 1.30 mg/dL 10/27/2024 10:18 AM EDT [facility] Glucose 111(H) 70 - 100 mg/dL 10/27/2024 10:18 AM EDT [facility] Calcium 9.1 8.6 - 10.3 mg/dL 10/27/2024 10:18 AM EDT [facility] Phosphorus 5.5(H) 2.1 - 4.7 mg/dL 10/27/2024 10:18 AM EDT [facility] Albumin 3.0(L) 3.5 - 5.7 g/dL 10/27/2024 10:18 AM EDT [facility] Osmolality, Calculated 311(H) 278 - 305 mOsm/kg 10/27/2024 10:18 AM EDT [facility] EGFR 32 10/27/2024 10:18 AM EDT [facility] Comment:As of 2021, the estimated [...] Sahni MD LAB BLOOD ORDERABLES Final Result [facility] [address] [place], [place] [address] * (ABNORMAL) Hepatic Function Panel, STAT (10/27/2024 8:00 AM EDT) Total Bilirubin 1.3 0.0 - 1.5 mg/dL 10/27/2024 8:51 AM EDT [facility] Bilirubin, Direct 0.93(H) 0.00 - 0.40 mg/dL 10/27/2024 8:51 AM EDT [facility] AST 88(H) 13 - 39 U/L 10/27/2024 8:51 AM EDT [facility] ALT 149(H) 7 - 52 U/L 10/27/2024 8:51 AM EDT [facility] Alkaline Phosphatase 26(L) 36 - 125 U/L 10/27/2024 8:51 AM EDT [facility] Total Protein 4.0(L) 6.4 - 8.9 g/dL 10/27/2024 8:51 AM EDT [facility] Albumin 3.0(L) 3.5 - 5.7 g/dL 10/27/2024 8:51 AM EDT [facility] Bilirubin, Indirect 0.37 0.00 - 1.10 mg/dL 10/27/2024 8:51 AM EDT [facility] Plasma 10/27/2024 8:00 AM EDT 10/27/2024 8:20 AM EDT us Semaj Mcnair III, MD LAB BLOOD ORDERABLE S Final Result Performing Organization Address [facility] Co de Phone Number [facility] [address] * (ABNORMAL) Lactic Acid, STAT (10/27/2024 8:00 AM EDT) Lactate 0.4(L) 0.5 - 2.2 mmol/L 10/27/2024 8:43 AM EDT [facility] Plasma 10/27/2024 8:00 AM EDT 10/27/2024 8:20 AM EDT us Semaj Mcnair III, MD LAB BLOOD ORDERABLE S Final Result Performing Organization Address [facility]/ZIP Co de Phone Number [facility] [address] * (ABNORMAL) Blood Gas, Arterial, STAT (10/27/2024 8:00 AM EDT) O2 Sat, Arterial 100 10/27/2024 8:23 AM EDT [facility] pH, Arterial 7.36 7.35 - 7.45 10/27/2024 8:23 AM EDT [facility] pCO2, Arterial 37 35 - 45 mm Hg 10/27/2024 8:23 AM EDT [facility] pO2, Arterial 245(H) 80 - 100 mm Hg 10/27/2024 8:23 AM EDT [facility] HCO3, Arterial 22 22 - 26 mmol/L 10/27/2024 8:23 AM EDT [facility] CO2 Content,Arteri al 22(L) 23 - 27 mmol/L 10/27/2024 8:23 AM EDT [facility] Base Excess, Arterial -4.2(L) -2.0 - 3.0 mmol/L 10/27/2024 8:23 AM EDT [facility] %HBO2, Arterial 96.5 95.0 - 98.0 % 10/27/2024 8:23 AM EDT [facility] Carboxyhemoglo bin, Arterial 2.2 % 10/27/2024 8:23 AM EDT [facility] Comment: CARBOXYHEMOGLOBIN (CO) REFERENCE RANGES: Non-Smokers: <2 % Smokers: <8 % TOXIC: >20 % Methemoglobin, Arterial 1.2 0.0 - 1.5 % 10/27/2024 8:23 AM EDT [facility] Reduced hemoglobin, Arterial 0.0 0.0 - 5.0 % 10/27/2024 8:23 AM EDT [facility] Blood, Arterial 10/27/2024 8 :00 AM EDT 10/27/2024 8:19 AM EDT Narrative [facility] - 10/27/2024 8:23 AM EDT Specimen is beyond 15 minutes from time of collection. Results may be compromised. Review results critically. us Kemar Sahni MD LAB BLOOD ORDERABLES Final Result [facility] [address] [place] [address], [facility] * (ABNORMAL) TEG-Bypass/ECMO/Liver HN (Factor function, Platelet/Fibrin Clot Strength w/Clot Breakdown, Heparinase In All Channels) (10/27/2024 8:00 AM EDT) Citrated Kaolin Reaction Time (TEGECMOLIVER) 7.8 4.6 - 9.1 minutes 10/27/2024 9:39 AM EDT [facility] Citrated Kaolin W/Heparinase Reaction Time (TEGECMOLIVER) 8.0 4.3 - 8.3 minutes 10/27/2024 9:39 AM EDT [facility] Citrated Kaolin Maximum Amplitude (TEGECMOLIVER) 52.7 52.0 - 69.0 mm 10/27/2024 9:39 AM EDT [facility] Citrated Functional Fibrinogen W/Heparinase Maximum Amplitude(TEGEC MOLIVER) 19.0 15.0 - 34.0 mm 10/27/2024 9:39 AM EDT [facility] Citrated Rapid Teg W/Heparinase Maximum Amplitude (TEGECMOLIVER) 49.5(L) 53.0 - 69.0 mm 10/27/2024 9:39 AM EDT [facility] Citrated Kaolin w/Heparinase Percent Lysis (TEGECMOLIVER) 0.0 0.0 - 3.2 % 10/27/2024 9:39 AM EDT [facility] Whole Blood (Citrate) 10/27/2024 8:00 AM EDT 10/27/2024 8:19 AM EDT Kemar Sahni MD LAB BLOOD ORDERABLES Final Result [facility] [address] [place] [address], [facility] * (ABNORMAL) Katie-Watkins virus VCA IgG Antibody (10/27/2024 8:00 AM EDT) EBV VCA IgG Positive( A) Negative 10/27/2024 11:30 AM EDT [facility] Comment:Presence of detectab le VCA IgG antibodies. 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 EBV IGG NUM 314.00(H) 0.00 - 17.99 U/mL 10/27/2024 11:30 AM EDT [facility] Serum 10/27/2024 8:00 AM EDT 10/27/2024 8:20 AM EDT Result [facility] Kemar Sahni MD LAB BLOOD ORDERABLES Final Result Performing Organization Address [facility] Co de Phone Number [facility] [address] [facility]. [address] * Hemoglobin A1c (10/27/2024 8:00 AM EDT) Hemoglobin A1C 5.0 4.0 - 5.6 % 10/27/2024 11:12 AM EDT [facility] Comment: Hemoglobin A1c Interpretation Guidelines: [...] ORDERABLES Final Result Performing Organization Address [facility] Co de Phone Number [facility] [address] [facility]. [address] * (ABNORMAL) POC Glucose Monitoring Device (10/27/2024 7:59 AM EDT) POC Glucose Monitoring Device 113(H) 70 - 100 mg/dL 10/27/2024 7:59 AM EDT [facility] Blood 10/27/2024 7:59 AM EDT 10/27/2024 7:59 AM EDT us Semaj Mcnair III, MD POINT OF CARE TEST ORDERABLES Final Result [facility] [address] [place] [address], [facility] * X-ray Abdomen AP view (10/27/2024 [...] Units (10/27/2024 6:16 AM EDT) Product Code B5954D04 [facility] Unit Number [id number] [facility] Dispense Status Presumed Transfused_PT [facility] Blood Expiration Date [id number] HCLL Coding System [id number] [facility]LL Product Code X8368B84 [facility] Unit Number [id number] [facility]LL Dispense Status Presumed Transfused_PT [facility] Blood Expiration Date [id number] HCLL Coding System [id number] [facility] Blood Bank Product John Pina MD BLOOD BANK PRODUCT ORDERABLES F inal Result [facility] * Prepare Platelets, leukoreduced, 1 Units (10/27/2024 6:16 AM EDT) Product Code I1395K93 [facility] Unit Number [id number] [facility] Dispense Status Presumed Transfused_PT [facility] Blood Expiration Date [id number] HCLL Coding System [id number] [facility] Blood Bank Product Eber Quinones MD BLOOD BANK PRODUCT ORDER PAL Final Result [facility] * Prepare Cryoprecipitate, 1 Units (10/27/2024 6:16 AM EDT) Product Code V7144E02 [facility] Unit Number [id number] [facility] Dispense Status Presumed Transfused_PT [facility] Blood Expiration Date HCLL Coding System [id number] HCLL Product Code U1032B66 [facility] Unit Number [id number] [facility]LL Dispense Status Presumed Transfused_PT [facility] Blood Expiration Date [id number] HCLL Coding System [id number] [facility] Blood Bank Product Eber Quinones MD BLOOD BANK PRODUCT ORDER PAL Final Result [facility] * Prepare Fresh Frozen Plasma, 10 Units (10/27/2024 6:16 AM EDT) Product Code B7654D29 [facility] Unit Number [id number] [facility] Dispense Status Presumed Transfused_PT [facility] Blood Expiration Date HC[facility] Coding System [id number] [facility] Product Code L2741C14 [facility] Unit Number [id number] [facility] Dispense Status Presumed Transfused_PT [facility] Blood Expiration Date [id number] [facility] Coding System [id number] [facility] Product Code S5014J01 [facility] Unit Number [id number] [facility] Dispense Status Presumed Transfused_PT [facility] Blood Expiration Date [id number] [facility] Coding System [id number] [facility] Product Code Q2168S48 [facility] Unit Number [id number] [facility] Dispense Status Presumed Transfused_PT [facility] Blood Expiration Date [id number] [facility] Coding System IYRL899 [facility] Product Code F8136F45 [facility] Unit Number [id number] [facility] Dispense Status Released from Crossmatch_RE [facility] Blood Expiration Date [id number] HCLL Coding System OPZP488 [facility] Product Code O2533F13 [facility] Unit Number [id number] [facility] Dispense Status Released from Crossmatch_RE [facility] Blood Expiration Date HCLL Coding System EZRT777 [facility] Product Code N6677M88 [facility] Unit Number [id number] [facility] Dispense Status Presumed Transfused_PT [facility] Blood Expiration Date HCLL Coding System OEKX929 [facility] Product Code V3327U53 [facility] Unit Number [id number] [facility] Dispense Status Presumed Transfused_PT [facility] Blood Expiration Date HCLL Coding System UYBQ022 [facility] Product Code W6511W13 [facility] Unit Number [id number] [facility] Dispense Status Presumed Transfused_PT [facility] Blood Expiration Date HCLL Coding System WMCH976 [facility] Product Code V6328B68 [facility] Unit Number [id number] [facility] Dispense Status Presumed Transfused_PT [facility] Blood Expiration Date [facility] Coding System [id number] [facility] Blood Bank Product Leandra Og MD BLOOD BANK PRODUCT ORD ERABLES Final Result Performing Organization Address [facility]/ZIP Co de Phone Number HCLL * Prepare Platelets, leukoreduced, 1 Units (10/27/2024 6:16 AM EDT) Product Code T6874U52 [facility] Unit Number [id number] [facility] Dispense Status Presumed Transfused_PT [facility] Blood Expiration Date [id number] [facility] Coding System OVFJ451 [facility] Blood Bank Product Ben Blake MD BLOOD BANK PRODUCT ORDERABLES Final Result Performing Organization Address City/[facility]/ZIP Co de Phone Number HC[facility] * Prepare Fresh Frozen Plasma (10/27/2024 6:15 AM EDT) Product Code O8816A84 [facility] Unit Number [id number] [facility] Dispense Status Presumed Transfused_PT [facility] Blood Expiration Date [id number] HC[facility] Coding System [id number] [facility] Product Code K0073L78 [facility] Unit Number [id number] [facility] Dispense Status Released from Crossmatch_RE [facility] Blood Expiration Date HCLL Coding System SAKW073 [facility] Product Code I3290M38 [facility] Unit Number [id number] [facility] Dispense Status Presumed Transfused_PT [facility] Blood Expiration Date HC[facility] Coding System CNFG699 [facility] Product Code W1089C08 [facility] Unit Number [id number] HCLL Dispense Status Presumed Transfused_PT HCLL Blood Expiration Date HCLL Coding System [id number] HCLL Product Code E4092V52 HCLL Unit Number [id number] HCLL Dispense Status Released from Crossmatch_RE HCLL Blood Expiration Date HCLL Coding System [id number] HCLL us Attending Provider Unknown BLOOD BANK PRODUCT OR DERABLES Final Result HCLL * Prepare RBC, leukoreduced (10/27/2024 6:15 AM EDT) Product Code J6180B35 HCLL Unit Number [id number] HCLL Dispense Status Presumed Transfused_PT HCLL Blood Expiration Date HCLL Coding System [id number] HCLL Product Code N7024Y81 HCLL Unit Number [id number] HCLL Dispense Status Released from Crossmatch_RE HCLL Blood Expiration Date HCLL Coding System NHJO083 HCLL Product Code S8061S54 HCLL Unit Number [id number] HCLL Dispense Status Released from Crossmatch_RE HCLL Blood Expiration Date [id number] HCLL Coding System [id number] HCLL Product Code D4606A02 HCLL Unit Number [id number] HCLL Dispense Status Released from Crossmatch_RE HCLL Blood Expiration Date [id number] HCLL Coding System IRJO307 HCLL Product Code W5867K14 HCLL Unit Number [id number] HCLL Dispense Status Released from Crossmatch_RE HCLL Blood Expiration Date HCLL Coding System [id number] HCLL us Attending Provider Unknown BLOOD BANK PRODUCT OR DERABLES Final Result HCLL * Prepare RBC, leukoreduced, 10 Units (10/27/2024 6:15 AM EDT) Product Code M1957V96 HCLL Unit Number [id number] HCLL Dispense Status Presumed Transfused_PT HCLL Blood Expiration Date HCLL Coding System TOOX596 HCLL Product Code J6960T01 HCLL Unit Number [id number] HCLL Dispense Status Presumed Transfused_PT HCLL Blood Expiration Date HCLL Coding System MGSD354 HCLL Product Code U4115I30 HCLL Unit Number [id number] HCLL Dispense Status Presumed Transfused_PT HCLL Blood Expiration Date HCLL Coding System GZDB993 HCLL Product Code O3976J22 HCLL Unit Number [id number] HCLL Dispense Status Presumed Transfused_PT HCLL Blood Expiration Date HCLL Coding System EEDJ171 HCLL Product Code R2183E77 HCLL Unit Number [id number] HCLL Dispense Status Presumed Transfused_PT HCLL Blood Expiration Date [id number] HCLL Coding System [id number] HCLL Product Code C7222J84 HCLL Unit Number [id number] HCLL Dispense Status Presumed Transfused_PT HCLL Blood Expiration Date HCLL Coding System IREF850 HCLL Product Code R6575V19 HCLL Unit Number [id number] HCLL Dispense Status Presumed Transfused_PT HCLL Blood Expiration Date HCLL Coding System AQPR304 HCLL Product Code P1108F95 HCLL Unit Number [id number] HCLL Dispense Status Presumed Transfused_PT HCLL Blood Expiration Date HCLL Coding System STVM175 HCLL Product Code Z6580L51 HCLL Unit Number [id number] HCLL Dispense Status Presumed Transfused_PT HCLL Blood Expiration Date HCLL Coding System JXHY756 HCLL Product Code D8610U38 HCLL Unit Number [id number] HCLL Dispense Status Presumed Transfused_PT HCLL Blood Expiration Date HCLL Coding System [id number] HCLL Blood Bank Product us Leandra gO MD BLOOD BANK PRODUCT ORD ERABLES Final Result HCLL * Transfuse Platelets (10/27/2024 6:09 AM EDT) us Ben Blake MD NURSING TREATMENT ORDERABLES - BLOOD ADMIN Final Result * (ABNORMAL) Arterial Blood Gas Panel (10/27/2024 6:09 AM EDT) O2Sat (ABGP) 100 10/27/2024 6:17 AM EDT [facility] pH (ABGP) 7.30(L) 7.35 - 7.45 10/27/2024 6:17 AM EDT [facility] PCO2 (ABGP) 41 35 - 45 mm Hg 10/27/2024 6:17 AM EDT [facility] PO2 (ABGP) 192(H) 80 - 100 mm Hg 10/27/2024 6:17 AM EDT [facility] HCO3 (ABGP) 21(L) 22 - 26 mmol/L 10/27/2024 6:17 AM EDT [facility] CO2 Content (ABGP) 22(L) 23 - 27 mmol/L 10/27/2024 6:17 AM EDT [facility] Base Excess (ABGP) -5.7(L) -2.0 - 3.0 mmol/L 10/27/2024 6:17 AM EDT [facility] Sodium (ABGP) 138 136 - 146 mEq/L 10/27/2024 6:17 AM EDT [facility] Potassium (ABGP) 3.3(L) 3.5 - 5.0 mEq/L 10/27/2024 6:17 AM EDT [facility] Comment:In the event of in-v itro hemolysis, potassium results may be falsely elevated. Always interpret lab results in conjunction with clinical findings. If hemolysis is suspected, a serum sample may be collected for repeat assessment of potassium. Calcium, Free (ABGP) 5.28 4.50 - 5.30 mg/dL 10/27/2024 6:17 AM EDT [facility] Glucose (ABGP) 112(H) 70 - 100 mg/dL 10/27/2024 6:17 AM EDT [facility] Comment:There is interferenc e with whole blood glucose results on this method when Hematocrit is <25% or >60%. HCT (ABGP) 20.0(L) 40.0 - 52.0 % 10/27/2024 6:17 AM EDT [facility] HGB (ABGP) 6.5(L) 14.0 - 18.0 g/dL 10/27/2024 6:17 AM EDT [facility] %HBO2 (ABGP) 96.8 95.0 - 98.0 % 10/27/2024 6:17 AM EDT [facility] Carboxyhgb (ABGP) 2.1 % 025 6:17 AM EDT [facility] Comment: CARBOXYHEMOGLOBIN (CO) REFERENCE RANGES: Non-Smokers: <2 % Smokers: <8 % TOXIC: >20 % Methemoglobin (ABGP) 1.0 0.0 - 1.5 % 10/27/2024 6:17 AM EDT [facility] Reduced Hemoglobin (ABGP) 0.2 0.0 - 5.0 % 10/27/2024 6:17 AM EDT [facility] Lactic Acid (ABGP) 0.4(L) 0.5 - 1.6 mmol/L 10/27/2024 6:17 AM EDT [facility] Blood, Arterial 10/27/2024 6 :09 AM EDT 10/27/2024 6:14 AM EDT us Ben Blake MD LAB BLOOD ORDERABLES Final Re sult [facility] [address] * Transfuse Fresh Frozen Plasma (10/27/2024 5:49 AM EDT) Result [facility] Ben Blake MD NURSING TREATMENT ORDERABLES - BLOOD ADMIN Final Result * Transfuse Cryoprecipitate (10/27/2024 4:56 AM EDT) Result [facility] Ben Blake MD NURSING TREATMENT ORDERABLES - BLOOD ADMIN Final Result * Transfuse Cryoprecipitate (10/27/2024 4:49 AM EDT) Result [facility] Ben Blake MD NURSING TREATMENT ORDERABLES - BLOOD ADMIN Final Result * (ABNORMAL) POC Glucose Monitoring Device (10/27/2024 4:46 AM EDT) POC Glucose Monitoring Device 124(H) 70 - 100 mg/dL 10/27/2024 4:47 AM EDT [facility] Blood 10/27/2024 4:46 AM EDT 10/27/2024 4:47 AM EDT Result [facility] Semaj Mcnair III, MD POINT OF CARE TEST ORDERABLES Final Result [facility] [address] * Transfuse Platelets (10/27/2024 4:24 AM EDT) Result [facility] Ben Blake MD NURSING TREATMENT ORDERABLES - BLOOD ADMIN Final Result * Transfuse Fresh Frozen Plasma (10/27/2024 4:07 AM EDT) Result [facility] Ben Blake MD NURSING TREATMENT ORDERABLES - BLOOD ADMIN Final Result * Transfuse RBC (10/27/2024 3:52 AM EDT) Result [facility] Ben Blake MD NURSING TREATMENT ORDERABLES - BLOOD ADMIN Final Result * (ABNORMAL) Arterial Blood Gas Panel (10/27/2024 3:07 AM EDT) O2Sat (ABGP) 100 10/27/2024 3:21 AM EDT [facility] pH (ABGP) 7.32(L) 7.35 - 7.45 10/27/2024 3:21 AM EDT [facility] PCO2 (ABGP) 38 35 - 45 mm Hg 10/27/2024 3:21 AM EDT [facility] PO2 (ABGP) 176(H) 80 - 100 mm Hg 10/27/2024 3:21 AM EDT [facility] HCO3 (ABGP) 20(L) 22 - 26 mmol/L 10/27/2024 3:21 AM EDT [facility] CO2 Content (ABGP) 21(L) 23 - 27 mmol/L 10/27/2024 3:21 AM T [facility] Base Excess (ABGP) -6.0(L) -2.0 - 3.0 mmol/L 10/27/2024 3:21 AM [facility] Sodium (ABGP) 138 136 - 146 mEq/L 10/27/2024 3:21 AM [facility] Potassium (ABGP) 3.0(L) 3.5 - 5.0 mEq/L 10/27/2024 3:21 AM [facility] Comment:In the event of in-v itro hemolysis, potassium results may be falsely elevated. Always interpret lab results in conjunction with clinical findings. If hemolysis is suspected, a serum sample may be collected for repeat assessment of potassium. Calcium, Free (ABGP) 5.28 4.50 - 5.30 mg/dL 10/27/2024 3:21 AM [facility] Glucose (ABGP) 108(H) 70 - 100 mg/dL 10/27/2024 3:21 AM [facility] Comment:There is interferenc e with whole blood glucose results on this method when Hematocrit is <25% or >60%. HCT (ABGP) 22.0(L) 40.0 - 52.0 % 10/27/2024 3:21 AM T [facility] HGB (ABGP) 7.3(L) 14.0 - 18.0 g/dL 10/27/2024 3:21 AM [facility] %HBO2 (ABGP) 97.3 95.0 - 98.0 % 10/27/2024 3:21 AM EDT [facility] Carboxyhgb (ABGP) 1.9 % 025 3:21 AM EDT [facility] Comment: CARBOXYHEMOGLOBIN (CO) REFERENCE RANGES: Non-Smokers: <2 % Smokers: <8 % TOXIC: >20 % Methemoglobin (ABGP) 0.8 0.0 - 1.5 % 10/27/2024 3:21 AM EDT [facility] Reduced Hemoglobin (ABGP) 0.0 0.0 - 5.0 % 10/27/2024 3:21 AM EDT [facility] Lactic Acid (ABGP) 0.3(L) 0.5 - 1.6 mmol/L 10/27/2024 3:21 AM EDT [facility] Blood, Arterial 10/27/2024 3 :07 AM EDT 10/27/2024 3:14 AM EDT us Ben Blake MD LAB BLOOD ORDERABLES Final Re sult Performing Organization Address City/State/[facility] Co de Phone Number [facility] [address] * Surgical Pathology Exam (10/27/2024 2:38 AM EDT) Tissue LEFT KIDNEY STRUCTURE / Unknown 10/27/2024 2:38 AM EDT Narrative [facility] - 10/27/2024 12:00 AM EDT CASE: [id number] PATIENT: BLAIR GILBERT Clinical History: Transplant kidney with bile duct reconstruction Pre-Operative Diagnosis: Acute kidney injury superimposed on CKD Post-Operative Diagnosis: None Given Specimen(s) Submitted: A. baseline renal biopsy ; B. right lobe liver biopsy; C. left lobe liver biopsy CPT Code(s): 26917 X 1; 55184 X 2; 68832 X 4 Additional Information: FINAL DIAGNOSIS: A. [...] parenchyma, which is entirely submitted in cassette [id number] A1. (NAA Mckeon/rr) B. Received in formalin, labeled with the patient's name Blair Gilbert and right lobe liver biopsy are two green-brown tissue cores measuring 1.8 and 2.0 cm in length, each with a diameter of 0.1 cm, which are entirely submitted between blue biopsy sponges in cassette [id number] B1-B2. (NAA Mckeon/ns) C. Received in formalin, labeled with the patient's name Blair Gilbert and left lobe liver biopsy are two green-georges tissue cores measuring 1.2 and 1.4 cm in length, each with a diameter of 0.1 cm, which are entirely submitted between blue biopsy sponges in cassette [id number] C1-C2. (NAA Mckeon/ns) Microscopic Description: I, the attending pathologist, have personally reviewed all prosector/resident work and pathology slides to determine final diagnosis. Control Materials Reacted Appropriately. Final Diagnosis performed by CLARE FALL MD Pathologist Electronically signed 10/31/2024 01:07:09 PM The Pathologist signing this report is located at [facility], [address] [place] [address], [place], [place], [facility], , CLIA ID: [id number] ADDENDUM: A. Kidney, allograft, baseline, wedge biopsy: [...] is located at [facility], [address] [place] [address], [place], [place], [facility], , CLIA ID: [id number] Kemar Sahni MD PATHOLOGY/CYTOLOGY ORDERABL ES Edited Result - Final Performing Organization Address [facility] Co de Phone Number [facility] * Anaerobic culture (10/27/2024 2:15 AM EDT) Culture Result No Anaerobes Isolated in 5 Days [facility] Fluid SPECIMEN FROM KIDNEY / Unknown 10/27/2024 2:15 AM EDT 10/27/2024 4:24 AM EDT Narrative [facility] - 10/31/2024 11:43 AM EDT 1) perfusate Semaj Mcnair III, MD MICROBIOLOGY - GENE RAL ORDERABLES Final Result Performing Organization Address [facility] de Phone Number [address] * Routine Culture plus Stain (10/27/2024 2:15 AM EDT) Gram Stain Result No Polymorphonuclear Leukocytes Seen [facility] Gram Stain Result No Organisms Seen; [facility] Culture Result No Growth After 3 Days [facility] Fluid SPECIMEN FROM KIDNEY / Unknown 10/27/2024 2:15 AM EDT 10/27/2024 4:24 AM EDT Narrative [facility] - 10/30/2024 9:26 AM EDT 1) perfusate Semaj Mcnair III, MD MICROBIOLOGY - GENE RAL ORDERABLES Final Result Performing Organization Address [facility]/ZIP Co de Phone Number [facility] [address] [place] [id number], [facility] * Transfuse Platelets Transfusion Rate: Per dept routine (10/27/2024 1:52 AM EDT) John Pina MD NURSING TREATMENT ORDERABLES - BLOOD ADMIN Final Result Performing Organization Address City/[facility]/ZIP Co de Phone Number EXTERNAL * [...] - 9.1 minutes 10/27/2024 2:44 AM EDT [facility] Citrated Rapid Teg Maximum Amplitude (TEGHEPARINASE) 42.3(L) 52.0 - 70.0 mm 10/27/2024 2:44 AM EDT [facility] Citrated Functional Fibrinogen Maximum Amplitude (TEGHEPARINASE) 15.0 15.0 - 32.0 mm 10/27/2024 2:44 AM EDT [facility] Citrated Kaolin W/Heparinase Reaction Time (TEGHEPARINASE) 10.5(H) 4.3 - 8.3 minutes 10/27/2024 2:44 AM EDT [facility] Citrated Kaolin K-Time (TEGHEPARINASE) 2.9(A) 0.8 - 2.1 minutes 10/27/2024 2:44 AM EDT [facility] Citrated Kaolin Angle (TEGHEPARINASE) 60.4(A) 63.0 - 78.0 degrees 10/27/2024 2:44 AM EDT [facility] Citrated Kaolin Maximum Amplitude (TEGHEPARINASE) 42.9(L) 52.0 - 69.0 mm 10/27/2024 2:44 AM EDT [facility] Citrated Functional Fibrinogen- Fibrinogen Level (TEGHEPARINASE) 273.7(L) 278.0 - 581.0 mg/dL 10/27/2024 2:44 AM EDT [facility] Whole Blood (Citrate) 10/27/2024 1:51 AM EDT 10/27/2024 2:03 AM EDT John Pina MD LAB BLOOD ORDERABLES Final Resu lt Performing Organization Address [facility] Co de Phone Number [facility] [address] [facility]. [address] * (ABNORMAL) POC Glucose Monitoring Device (10/27/2024 1:50 AM EDT) POC Glucose Monitoring Device 121(H) 70 - 100 mg/dL 10/27/2024 1:51 AM EDT [facility] Blood 10/27/2024 1:50 AM EDT 10/27/2024 1:51 AM EDT Semaj Mcnair III, MD POINT OF CARE TEST ORDERABLES Final Result Performing Organization Address [facility] de Phone Number [facility] [address] [facility]. [address] * Transfuse Cryoprecipitate Transfusion Rate: Per dept routine (10/27/2024 1:25 AM EDT) John Pina MD NURSING TREATMENT ORDERABLES - BLOOD ADMIN Final Result Performing Organization Address [facility] Co de Phone Number EXTERNAL * Transfuse Cryoprecipitate Transfusion Rate: Per dept routine, 1 Units (10/27/2024 1:25 AM EDT) John Pina MD NURSING TREATMENT ORDERABLES - BLOOD ADMIN Final Result Performing Organization Address [facility] de Phone Number EXTERNAL * (ABNORMAL) POC Glucose Monitoring Device (10/27/2024 1:21 AM EDT) POC Glucose Monitoring Device 123(H) 70 - 100 mg/dL 10/27/2024 1:22 AM EDT [facility] Blood 10/27/2024 1:21 AM EDT 10/27/2024 1:21 AM EDT Semaj Mcnair III, MD POINT OF CARE TEST ORDERABLES Final Result Performing Organization Address [facility] Co de Phone Number [facility] [address] [facility] [address], [facility] * Transfuse Fresh Frozen Plasma Transfusion Rate: Per dept routine (10/27/2024 1:03 AM EDT) John Pina MD NURSING TREATMENT ORDERABLES - BLOOD ADMIN Final Result Performing Organization Address [facility] Co de Phone Number EXTERNAL * Transfuse Fresh Frozen Plasma Transfusion Rate: Per dept routine, 1 Units (10/27/2024 1:03 AM EDT) John Pina MD NURSING TREATMENT ORDERABLES - BLOOD ADMIN Final Result Performing Organization Address [facility] de Phone Number EXTERNAL * Calcium Free, Serum (10/27/2024 12:13 AM EDT) [facility] Free Calcium, Ser 5.20 4.40 - 5.40 mg/dL 10/27/2024 12:37 AM EDT [facility] Comment:Free calcium levels vary inversely with pH by approximately 5% for each 0.1 unit of pH change. Assay results have been normalized to pH = 7.40. Serum 10/27/2024 12:1 3 AM EDT 10/27/2024 12:29 AM EDT Narrative [facility] - 10/27/2024 12:37 AM EDT [...] Final Resu lt Performing Organization Address [facility] Co de Phone Number [facility] [address] [place] [address], [facility] * (ABNORMAL) Blood Gas, Arterial, STAT (10/27/2024 12:13 AM EDT) O2 Sat, Arterial 100 10/27/2024 12:23 AM EDT [facility] FIO2 30 10/27/2024 12:23 AM EDT [facility] pH, Arterial 7.32(L) 7.35 - 7.45 10/27/2024 12:23 AM EDT [facility] pCO2, Arterial 37 35 - 45 mm Hg 10/27/2024 12:23 AM EDT [facility] pO2, Arterial 137(H) 80 - 100 mm Hg 10/27/2024 12:23 AM EDT [facility] HCO3, Arterial 20(L) 22 - 26 mmol/L 10/27/2024 12:23 AM EDT [facility] CO2 Content,Arteri al 20(L) 23 - 27 mmol/L 10/27/2024 12:23 AM EDT [facility] Base Excess, Arterial -6.4(L) -2.0 - 3.0 mmol/L 10/27/2024 12:23 AM EDT [facility] %HBO2, Arterial 96.2 95.0 - 98.0 % 10/27/2024 12:23 AM EDT [facility] Carboxyhemoglo bin, Arterial 1.9 % 10/27/2024 12:23 AM EDT [facility] Comment: CARBOXYHEMOGLOBIN (CO) REFERENCE RANGES: Non-Smokers: <2 % Smokers: <8 % TOXIC: >20 % Methemoglobin, Arterial 1.5 0.0 - 1.5 % 10/27/2024 12:23 AM EDT [facility] Reduced hemoglobin, Arterial 0.4 0.0 - 5.0 % 10/27/2024 12:23 AM EDT [facility] Blood, Arterial 10/27/2024 1 2:13 AM EDT 10/27/2024 12:18 AM EDT us John Pina MD LAB BLOOD ORDERABLES Final Resu lt [facility] [address] * (ABNORMAL) TEG-Bypass/ECMO/Liver HN (Factor function, Platelet/Fibrin Clot Strength w/Clot Breakdown, Heparinase In All Channels) (10/27/2024 12:13 AM EDT) Citrated Kaolin Reaction Time (TEGECMOLIVER) 9.1 4.6 - 9.1 minutes 10/27/2024 1:43 AM EDT [facility] Citrated Kaolin W/Heparinase Reaction Time (TEGECMOLIVER) 9.7(H) 4.3 - 8.3 minutes 10/27/2024 1:43 AM EDT [facility] Citrated Kaolin Maximum Amplitude (TEGECMOLIVER) <40.0(L) 52.0 - 69.0 mm 10/27/2024 1:43 AM EDT [facility] Citrated Functional Fibrinogen W/Heparinase Maximum Amplitude(TEGEC MOLIVER) 11.9(L) 15.0 - 34.0 mm 10/27/2024 1:43 AM EDT [facility] Citrated Rapid Teg W/Heparinase Maximum Amplitude (TEGECMOLIVER) 31.6(L) 53.0 - 69.0 mm 10/27/2024 1:43 AM EDT [facility] Citrated Kaolin w/Heparinase Percent Lysis (TEGECMOLIVER) 0.0 0.0 - 3.2 % 10/27/2024 1:43 AM EDT [facility] Whole Blood (Citrate) 10/27/2024 12:13 AM EDT 10/27/2024 12:18 AM EDT us Kemar Sahni MD LAB BLOOD ORDERABLES Final Result [facility] [address] [facility]. [address] * (ABNORMAL) Lactic Acid (10/27/2024 12:13 AM EDT) Lactate 0.2(L) 0.5 - 2.2 mmol/L 10/27/2024 12:59 AM EDT [facility] Plasma 10/27/2024 12:1 3 AM EDT 10/27/2024 12:31 AM EDT Kemar Sahni MD LAB BLOOD ORDERABLES Final Result Performing Organization Address [facility] Co de Phone Number [facility] [address] [facility]. [address] * Magnesium (10/27/2024 12:13 AM EDT) Magnesium 1.8 1.5 - 2.5 mg/dL 10/27/2024 12:52 AM EDT [facility] Plasma 10/27/2024 12:1 3 AM EDT 10/27/2024 12:29 AM EDT Kemar Sahni MD LAB BLOOD ORDERABLES Final Result Performing Organization Address [facility] de Phone Number [facility] [address] * (ABNORMAL) Hepatic Function Panel (10/27/2024 12:13 AM EDT) Total Bilirubin 1.6(H) 0.0 - 1.5 mg/dL 10/27/2024 12:52 AM EDT [facility] Bilirubin, Direct 1.17(H) 0.00 - 0.40 mg/dL 10/27/2024 12:52 AM EDT [facility] AST 157(H) 13 - 39 U/L 10/27/2024 12:52 AM EDT [facility] ALT 261(H) 7 - 52 U/L 10/27/2024 12:52 AM EDT [facility] Alkaline Phosphatase 26(L) 36 - 125 U/L 10/27/2024 12:52 AM EDT [facility] Total Protein 3.8(L) 6.4 - 8.9 g/dL 10/27/2024 12:52 AM EDT [facility] Albumin 2.8(L) 3.5 - 5.7 g/dL 10/27/2024 12:52 AM EDT [facility] Bilirubin, Indirect 0.43 0.00 - 1.10 mg/dL 10/27/2024 12:52 AM EDT [facility] Plasma 10/27/2024 12:1 3 AM EDT 10/27/2024 12:29 AM EDT Kemar Sahni MD LAB BLOOD ORDERABLES Final Result Performing Organization Address [facility] Co de Phone Number [facility] [address] [facility]. [address] * (ABNORMAL) Protime-INR (10/27/2024 12:13 AM EDT) Protime 18.6(H) 12.1 - 15.1 seconds 10/27/2024 12:43 AM EDT [facility] INR 1.5(H) 0.9 - 1.1 10/27/2024 12:43 AM EDT [facility] Comment: RECOMMENDED THERAPEUTIC RANGES USING INR : Stable oral anticoagulant therapy: 2.0 - 3.0 Mechanical prosthetic heart valve: 2.5 - 3.5 Recurrent acute myocardial infarction: 2.5 - 3.5 Plasma 10/27/2024 12:1 3 AM EDT 10/27/2024 12:29 AM EDT Kemar Sahni MD LAB BLOOD ORDERABLES Final Result Performing Organization Address [facility] Co de Phone Number [facility] [address] [facility] * (ABNORMAL) CBC (10/27/2024 12:13 AM EDT) WBC 5.0 3.8 - 10.8 10E3/uL 10/27/2024 12:59 AM EDT [facility] RBC 2.70(L) 4.20 - 5.80 10E6/uL 10/27/2024 12:59 AM EDT [facility] Hemoglobin 8.5(L) 13.2 - 17.1 g/dL 10/27/2024 12:59 AM EDT [facility] Hematocrit 23.9(L) 38.5 - 50.0 % 10/27/2024 12:59 AM EDT [facility] MCV 88.5 80.0 - 100.0 fL 10/27/2024 12:59 AM EDT [facility] MCH 31.5 27.0 - 33.0 pg 10/27/2024 12:59 AM EDT [facility] MCHC 35.6 32.0 - 36.0 g/dL 10/27/2024 12:59 AM EDT [facility] RDW 20.6(H) 11.0 - 15.0 % 10/27/2024 12:59 AM EDT [facility] Platelets 35(L) 140 - 400 10E3/uL 10/27/2024 12:59 AM EDT [facility] Comment: CNV Specimen checked for clots. None detected. MPV 7.6 7.5 - 11.5 fL 10/27/2024 12:59 AM EDT [facility] Whole Blood 10/27/2024 12:1 3 AM EDT 10/27/2024 12:29 AM EDT us Kemar Sahni MD LAB BLOOD ORDERABLES Final Result [facility] [address] * (ABNORMAL) Renal Function Panel w/EGFR (10/27/2024 12:13 AM EDT) Sodium 141 133 - 146 mmol/L 10/27/2024 12:52 AM EDT [facility] Potassium 3.2(L) 3.5 - 5.3 mmol/L 10/27/2024 12:52 AM EDT [facility] Chloride 109 98 - 110 mmol/L 10/27/2024 12:52 AM EDT [facility] CO2 21 21 - 33 mmol/L 10/27/2024 12:52 AM EDT [facility] Anion Gap 11 3 - 16 mmol/L 10/27/2024 12:52 AM EDT [facility] BUN 64(H) 7 - 25 mg/dL 10/27/2024 12:52 AM EDT [facility] Creatinine 2.58(H) 0.60 - 1.30 mg/dL 10/27/2024 12:52 AM EDT [facility] Glucose 126(H) 70 - 100 mg/dL 10/27/2024 12:52 AM EDT [facility] Calcium 8.9 8.6 - 10.3 mg/dL 10/27/2024 12:52 AM EDT [facility] Phosphorus 5.3(H) 2.1 - 4.7 mg/dL 10/27/2024 12:52 AM EDT [facility] Albumin 2.8(L) 3.5 - 5.7 g/dL 10/27/2024 12:52 AM EDT [facility] Osmolality, Calculated 312(H) 278 - 305 mOsm/kg 10/27/2024 12:52 AM EDT [facility] EGFR 31 10/27/2024 12:52 AM EDT [facility] Comment:As of 2021, the estimated [...] Sahni MD LAB BLOOD ORDERABLES Final Result [facility] [id number] [place] [address], [facility] * (ABNORMAL) POC Glucose Monitoring Device (10/27/2024 12:08 AM EDT) POC Glucose Monitoring Device 121(H) 70 - 100 mg/dL 10/27/2024 12:08 AM EDT [facility] Blood 10/27/2024 12:0 8 AM EDT 10/27/2024 12:08 AM EDT Semaj Mcnair III, MD POINT OF CARE TEST ORDERABLES Final Result Performing Organization Address [facility]/ZIP Co de Phone Number [facility] [facility] [address] [place] [address] * (ABNORMAL) POC Glucose Monitoring Device (10/26/2024 11:15 PM EDT) POC Glucose Monitoring Device 120(H) 70 - 100 mg/dL 10/26/2024 11:15 PM EDT [facility] Blood 10/26/2024 11:1 5 PM EDT 10/26/2024 11:15 PM EDT Semaj Mcnair III, MD POINT OF CARE TEST ORDERABLES Final Result Performing Organization Address [facility] Co de Phone Number [address] * (ABNORMAL) TEG-Bypass/ECMO/Liver HN (Factor function, Platelet/Fibrin Clot Strength w/Clot Breakdown, Heparinase In All Channels) (10/26/2024 10:36 PM EDT) Citrated Kaolin Reaction Time (TEGECMOLIVER) 10.0(H) 4.6 - 9.1 minutes 10/26/2024 11:53 PM EDT [facility] Citrated Kaolin W/Heparinase Reaction Time (TEGECMOLIVER) 10.2(H) 4.3 - 8.3 minutes 10/26/2024 11:53 PM EDT [facility] Citrated Kaolin Maximum Amplitude (TEGECMOLIVER) <40.0(L) 52.0 - 69.0 mm 10/26/2024 11:53 PM EDT [facility] Citrated Functional Fibrinogen W/Heparinase Maximum Amplitude(TEGEC MOLIVER) 11.3(L) 15.0 - 34.0 mm 10/26/2024 11:53 PM EDT [facility] Citrated Rapid Teg W/Heparinase Maximum Amplitude (TEGECMOLIVER) 41.8(L) 53.0 - 69.0 mm 10/26/2024 11:53 PM EDT [facility] Citrated Kaolin w/Heparinase Percent Lysis (TEGECMOLIVER) 0.0 0.0 - 3.2 % 10/26/2024 11:53 PM EDT [facility] Whole Blood (Citrate) 10/26/2024 10:36 PM EDT 10/26/2024 10:43 PM EDT Kemar Sahni MD LAB BLOOD ORDERABLES Final Result Performing Organization Address [facility]/ZIP Co de Phone Number [facility] [address] * (ABNORMAL) POC Glucose Monitoring Device (10/26/2024 10:14 PM EDT) POC Glucose Monitoring Device 124(H) 70 - 100 mg/dL 10/26/2024 11:11 PM EDT [facility] Blood 10/26/2024 10:1 4 PM EDT 10/26/2024 11:11 PM EDT Semaj Mcnair III, MD POINT OF CARE TEST ORDERABLES Final Result [facility] [address] * (ABNORMAL) POC Glucose Monitoring Device (10/26/2024 9:16 PM EDT) POC Glucose Monitoring Device 119(H) 70 - 100 mg/dL 10/26/2024 9:18 PM EDT [facility] Blood 10/26/2024 9:16 PM EDT 10/26/2024 9:18 PM EDT Semaj Mcnair III, MD POINT OF CARE TEST ORDERABLES Final Result Performing Organization Address City/[facility]/ZIP Co de Phone Number [facility] [address] * (ABNORMAL) POC Glucose Monitoring Device (10/26/2024 8:05 PM EDT) POC Glucose Monitoring Device 113(H) 70 - 100 mg/dL 10/26/2024 8:06 PM EDT [facility] Blood 10/26/2024 8:05 PM EDT 10/26/2024 8:06 PM EDT eSmaj Mcnair III, MD POINT OF CARE TEST ORDERABLES Final Result Performing Organization Address [facility] Co de Phone Number [facility] [address] [facility]. [address] * (ABNORMAL) POC Glucose Monitoring Device (10/26/2024 7:02 PM EDT) POC Glucose Monitoring Device 111(H) 70 - 100 mg/dL 10/26/2024 7:03 PM EDT [facility] Blood 10/26/2024 7:02 PM EDT 10/26/2024 7:03 PM EDT Semaj Mcnair III, MD POINT OF CARE TEST ORDERABLES Final Result Performing Organization Address City/[facility]/ZIP Co de Phone Number [facility] [address] [facility]. [address] * Transfuse Cryoprecipitate Transfusion Rate: Per dept routine (10/26/2024 6:39 PM EDT) John Pina MD NURSING TREATMENT ORDERABLES - BLOOD ADMIN Final Result EXTERNAL * Transfuse Cryoprecipitate Transfusion Rate: Per dept routine, 1 Units (10/26/2024 6:39 PM EDT) John Pina MD NURSING TREATMENT ORDERABLES - BLOOD ADMIN Final Result Performing Organization Address City/[facility] Co de Phone Number EXTERNAL * (ABNORMAL) POC Glucose Monitoring Device (10/26/2024 6:33 PM EDT) POC Glucose Monitoring Device 110(H) 70 - 100 mg/dL 10/26/2024 6:34 PM EDT [facility] Blood 10/26/2024 6:33 PM EDT 10/26/2024 6:34 PM EDT us Semaj Mcnair III, MD POINT OF CARE TEST ORDERABLES Final Result Performing Organization Address [facility] Co de Phone Number [facility] [address] [facility]. [address] * Transfuse Cryoprecipitate Transfusion Rate: Per dept routine (10/26/2024 6:22 PM EDT) us John Pina MD NURSING TREATMENT ORDERABLES - BLOOD ADMIN Final Result Performing Organization Address [facility] Co de Phone Number EXTERNAL * Transfuse Cryoprecipitate Transfusion Rate: Per dept routine, 1 Units (10/26/2024 6:22 PM EDT) us John Pina MD NURSING TREATMENT ORDERABLES - BLOOD ADMIN Final Result Performing Organization Address [facility] Co de Phone Number EXTERNAL * (ABNORMAL) POC Glucose Monitoring Device (10/26/2024 6:17 PM EDT) POC Glucose Monitoring Device 104(H) 70 - 100 mg/dL 10/26/2024 6:18 PM EDT [facility] Blood 10/26/2024 6:17 PM EDT 10/26/2024 6:18 PM EDT us Semaj Mcnair III, MD POINT OF CARE TEST ORDERABLES Final Result Performing Organization Address [facility] Co de Phone Number [facility] [address] [facility]. [address] * (ABNORMAL) POC Glucose Monitoring Device (10/26/2024 4:58 PM EDT) [facility] POC Glucose Monitoring Device 115(H) 70 - 100 mg/dL 10/26/2024 4:59 PM EDT [facility] Blood 10/26/2024 4:58 PM EDT 10/26/2024 4:58 PM EDT Semaj Mcnair III, MD POINT OF CARE TEST ORDERABLES Final Result Performing Organization Address [facility] Co de Phone Number [facility] [address] [place] [address] * (ABNORMAL) Calcium Free, Serum (10/26/2024 4:42 PM EDT) [facility] Free Calcium, Ser 5.67(H) 4.40 - 5.40 mg/dL 10/26/2024 4:55 PM EDT [facility] Comment:Free calcium levels vary inversely with pH by approximately 5% for each 0.1 unit of pH change. Assay results have been normalized to pH = 7.40. Serum 10/26/2024 4:42 PM EDT 10/26/2024 4:47 PM EDT Narrative [facility] - 10/26/2024 4:55 PM EDT [...] Final Resu lt Performing Organization Address [facility] Co de Phone Number [facility] [address] [place] [address]. [address] * Repeat Crossmatch (Recipient Sample) (10/26/2024 4:42 PM EDT) [facility] Repeat Cx - Recipient The request and specimen(s) for this test have been received and transported to the [facility] at [address] [place] [address]. The [facility] will report results directly to the client. 10/26/2024 4:49 PM EDT [facility] Whole Blood 10/26/2024 4:42 PM EDT 10/26/2024 4:49 PM EDT [facility] - 10/26/2024 4:49 PM EDT To be sent to [facility] for Donor UNOS#[id number] cross match with Blair Gilbert Sveta Judge MD LAB BLOOD ORDERABLES Final Resu lt [facility] [address] [facility]. [address] * (ABNORMAL) Lactic Acid (10/26/2024 4:42 PM EDT) Lactate 0.3(L) 0.5 - 2.2 mmol/L 10/26/2024 5:19 PM EDT [facility] Plasma 10/26/2024 4:42 PM EDT 10/26/2024 4:47 PM EDT Kemar Sahni MD LAB BLOOD ORDERABLES Final Result [facility] [address] [facility]. [address] * Magnesium (10/26/2024 4:42 PM EDT) Magnesium 2.0 1.5 - 2.5 mg/dL 10/26/2024 5:24 PM EDT [facility] Plasma 10/26/2024 4:42 PM EDT 10/26/2024 4:47 PM EDT Kemar Sahni MD LAB BLOOD ORDERABLES Final Result [facility] [address] [facility]. [address] * (ABNORMAL) Hepatic Function Panel (10/26/2024 4:42 PM EDT) Total Bilirubin 2.3(H) 0.0 - 1.5 mg/dL 10/26/2024 5:24 PM EDT [facility] Bilirubin, Direct 1.85(H) 0.00 - 0.40 mg/dL 10/26/2024 5:24 PM EDT [facility] AST 374(H) 13 - 39 U/L 10/26/2024 5:24 PM EDT [facility] ALT 458(H) 7 - 52 U/L 10/26/2024 5:24 PM EDT [facility] Alkaline Phosphatase 39 36 - 125 U/L 10/26/2024 5:24 PM EDT [facility] Total Protein 3.8(L) 6.4 - 8.9 g/dL 10/26/2024 5:24 PM EDT [facility] Albumin 3.0(L) 3.5 - 5.7 g/dL 10/26/2024 5:24 PM EDT [facility] Bilirubin, Indirect 0.45 0.00 - 1.10 mg/dL 10/26/2024 5:24 PM EDT [facility] Plasma 10/26/2024 4:42 PM EDT 10/26/2024 4:47 PM EDT Kemar Sahni MD LAB BLOOD ORDERABLES Final Result Performing Organization Address City/State/[facility] Co de Phone Number [facility] [address] * (ABNORMAL) Protime-INR (10/26/2024 4:42 PM EDT) Protime 20.3(H) 12.1 - 15.1 seconds 10/26/2024 5:12 PM EDT [facility] INR 1.7(H) 0.9 - 1.1 10/26/2024 5:12 PM EDT [facility] Comment: RECOMMENDED THERAPEUTIC RANGES USING INR : Stable oral anticoagulant therapy: 2.0 - 3.0 Mechanical prosthetic heart valve: 2.5 - 3.5 Recurrent acute myocardial infarction: 2.5 - 3.5 Plasma 10/26/2024 4:42 PM EDT 10/26/2024 4:47 PM EDT Kemar Sahni MD LAB BLOOD ORDERABLES Final Result [facility] [address] [place] [address], [facility] * (ABNORMAL) CBC (10/26/2024 4:42 PM EDT) WBC 10.0 3.8 - 10.8 10E3/uL 10/26/2024 5:00 PM EDT [facility] RBC 3.44(L) 4.20 - 5.80 10E6/uL 10/26/2024 5:00 PM EDT [facility] Hemoglobin 10.5(L) 13.2 - 17.1 g/dL 10/26/2024 5:00 PM EDT [facility] Hematocrit 30.2(L) 38.5 - 50.0 % 10/26/2024 5:00 PM EDT [facility] MCV 87.7 80.0 - 100.0 fL 10/26/2024 5:00 PM EDT [facility] MCH 30.6 27.0 - 33.0 pg 10/26/2024 5:00 PM EDT [facility] MCHC 34.8 32.0 - 36.0 g/dL 10/26/2024 5:00 PM EDT [facility] RDW 20.1(H) 11.0 - 15.0 % 10/26/2024 5:00 PM EDT [facility] Platelets 48(L) 140 - 400 10E3/uL 10/26/2024 5:00 PM EDT [facility] Comment:Specimen checked for clots. None detected. MPV 7.9 7.5 - 11.5 fL 10/26/2024 5:00 PM EDT [facility] Whole Blood 10/26/2024 4:42 PM EDT 10/26/2024 4:47 PM EDT Kemar Sahni MD LAB BLOOD ORDERABLES Final Result [facility] [address] [place] [address], [facility] * (ABNORMAL) Renal Function Panel w/EGFR (10/26/2024 4:42 PM EDT) Sodium 142 133 - 146 mmol/L 10/26/2024 5:24 PM EDT [facility] Potassium 3.3(L) 3.5 - 5.3 mmol/L 10/26/2024 5:24 PM EDT [facility] Chloride 109 98 - 110 mmol/L 10/26/2024 5:24 PM EDT [facility] CO2 23 21 - 33 mmol/L 10/26/2024 5:24 PM EDT [facility] Anion Gap 10 3 - 16 mmol/L 10/26/2024 5:24 PM EDT [facility] BUN 63(H) 7 - 25 mg/dL 10/26/2024 5:24 PM EDT [facility] Creatinine 2.85(H) 0.60 - 1.30 mg/dL 10/26/2024 5:24 PM EDT [facility] Glucose 127(H) 70 - 100 mg/dL 10/26/2024 5:24 PM EDT [facility] Calcium 8.9 8.6 - 10.3 mg/dL 10/26/2024 5:24 PM EDT [facility] Phosphorus 4.4 2.1 - 4.7 mg/dL 10/26/2024 5:24 PM EDT [facility] Albumin 3.0(L) 3.5 - 5.7 g/dL 10/26/2024 5:24 PM EDT [facility] Osmolality, Calculated 314(H) 278 - 305 mOsm/kg 10/26/2024 5:24 PM EDT [facility] EGFR 28 10/26/2024 5:24 PM EDT [facility] Comment:As of 2021, the estimated [...] ORDERABLES Final Result Performing Organization Address [facility] Co de Phone Number [facility] [address] * (ABNORMAL) POC Glucose Monitoring Device (10/26/2024 3:54 PM EDT) POC Glucose Monitoring Device 126(H) 70 - 100 mg/dL 10/26/2024 3:55 PM EDT [facility] Blood 10/26/2024 3:54 PM EDT 10/26/2024 3:55 PM EDT Semaj Mcnair III, MD POINT OF CARE TEST ORDERABLES Final Result Performing Organization Address [facility] Co de Phone Number [facility] [address] [facility]. [address] * (ABNORMAL) POC Glucose Monitoring Device (10/26/2024 3:06 PM EDT) POC Glucose Monitoring Device 144(H) 70 - 100 mg/dL 10/26/2024 3:14 PM EDT [facility] Blood 10/26/2024 3:06 PM EDT 10/26/2024 3:13 PM EDT Semaj Mcnair III, MD POINT OF CARE TEST ORDERABLES Final Result [facility] [address] * (ABNORMAL) TEG-Bypass/ECMO/Liver HN (Factor function, Platelet/Fibrin Clot Strength w/Clot Breakdown, Heparinase In All Channels) (10/26/2024 3:03 PM EDT) [facility] Citrated Kaolin Reaction Time (TEGECMOLIVER) 8.2 4.6 - 9.1 minutes 10/26/2024 4:43 PM EDT [facility] Citrated Kaolin W/Heparinase Reaction Time (TEGECMOLIVER) 8.2 4.3 - 8.3 minutes 10/26/2024 4:43 PM EDT [facility] Citrated Kaolin Maximum Amplitude (TEGECMOLIVER) 41.7(L) 52.0 - 69.0 mm 10/26/2024 4:43 PM EDT [facility] Citrated Functional Fibrinogen W/Heparinase Maximum Amplitude(TEGEC MOLIVER) 11.4(L) 15.0 - 34.0 mm 10/26/2024 4:43 PM EDT [facility] Citrated Rapid Teg W/Heparinase Maximum Amplitude (TEGECMOLIVER) 38.6(L) 53.0 - 69.0 mm 10/26/2024 4:43 PM EDT [facility] Citrated Kaolin w/Heparinase Percent Lysis (TEGECMOLIVER) 0.0 0.0 - 3.2 % 10/26/2024 4:43 PM EDT [facility] Whole Blood (Citrate) 10/26/2024 3:03 PM EDT 10/26/2024 3:10 PM EDT Jani Mooney MD LAB BLOOD ORDERABLES Final Resul t [facility] [address] * ECG 12 lead (MUSE) (10/26/2024 2:19 PM EDT) 10/26/2024 2:19 PM EDT Narrative MUSE - 10/27/2024 10:09 AM EDT Ventricular Rate: 105 BPM Atrial Rate: 105 BPM P-R Interval: 128 ms QRS Duration: 94 ms QT: 474 ms QTc: 626 ms R [place]: -37 degrees T [place]: 35 degrees Diagnosis Line: Critical Test Result: [...] - 100 mg/dL 10/26/2024 2:01 PM EDT [facility] Blood 10/26/2024 2:00 PM EDT 10/26/2024 2:01 PM EDT Semaj Mcnair III, MD POINT OF CARE TEST ORDERABLES Final Result Performing Organization Address [facility] de Phone Number [facility] [address] * (ABNORMAL) POC Glucose Monitoring Device (10/26/2024 1:05 PM EDT) POC Glucose Monitoring Device 212(H) 70 - 100 mg/dL 10/26/2024 1:06 PM EDT [facility] Blood 10/26/2024 1:05 PM EDT 10/26/2024 1:06 PM EDT Semaj Mcnair III, MD POINT OF CARE TEST ORDERABLES Final Result Performing Organization Address [facility] Co de Phone Number [facility] [address] * Transfuse Cryoprecipitate Has consent been obtained? Yes; Transfusion Rate: Per dept routine (10/26/2024 12:25 PM EDT) Shay Sifuentes MD NURSING TREATMENT ORDERABLES - BLOOD ADMIN Final Result Performing Organization Address [facility] de Phone Number EXTERNAL * Transfuse Cryoprecipitate Has consent been obtained? Yes; Transfusion Rate: Per dept routine, 1 Units (10/26/2024 12:25 PM EDT) Shay Sifuentes MD NURSING TREATMENT ORDERABLES - BLOOD ADMIN Final Result Performing Organization Address [facility] de Phone Number EXTERNAL * (ABNORMAL) POC Glucose Monitoring Device (10/26/2024 12:06 PM EDT) POC Glucose Monitoring Device 226(H) 70 - 100 mg/dL 10/26/2024 12:07 PM EDT [facility] Blood 10/26/2024 12:0 6 PM EDT 10/26/2024 12:07 PM EDT Semaj Mcnair III, MD POINT OF CARE TEST ORDERABLES Final Result Performing Organization Address [facility] de Phone Number [facility] [address] * Transfuse Cryoprecipitate Transfusion Rate: Per dept routine (10/26/2024 12:01 PM EDT) John Pina MD NURSING TREATMENT ORDERABLES - BLOOD ADMIN Final Result Performing Organization Address [facility] de Phone Number EXTERNAL * Transfuse Cryoprecipitate Transfusion Rate: Per dept routine, 1 Units (10/26/2024 12:01 PM EDT) John Pina MD NURSING TREATMENT ORDERABLES - BLOOD ADMIN Final Result Performing Organization Address [facility] de Phone Number EXTERNAL * Lactic Acid (10/26/2024 10:48 AM EDT) Lactate 1.2 0.5 - 2.2 mmol/L 10/26/2024 11:27 AM EDT [facility] Plasma 10/26/2024 10:4 8 AM EDT 10/26/2024 10:53 AM EDT Kemar Sahni MD LAB BLOOD ORDERABLES Final Result [facility] [address] [facility]. [address] * Magnesium (10/26/2024 10:48 AM EDT) Magnesium 2.0 1.5 - 2.5 mg/dL 10/26/2024 11:26 AM EDT [facility] Plasma 10/26/2024 10:4 8 AM EDT 10/26/2024 10:53 AM EDT Kemar Sahni MD LAB BLOOD ORDERABLES Final Result Performing Organization Address [facility] Co de Phone Number [facility] [address] [facility]. [address] * (ABNORMAL) Hepatic Function Panel (10/26/2024 10:48 AM EDT) Total Bilirubin 5.9(H) 0.0 - 1.5 mg/dL 10/26/2024 11:26 AM EDT [facility] Bilirubin, Direct 4.74(H) 0.00 - [...] - 5.7 g/dL 10/26/2024 11:26 AM EDT [facility] Bilirubin, Indirect 1.16(H) 0.00 - 1.10 mg/dL 10/26/2024 11:26 AM EDT [facility] Plasma 10/26/2024 10:4 8 AM EDT 10/26/2024 10:53 AM EDT Kemar Sahni MD LAB BLOOD ORDERABLES Final Result Performing Organization Address [facility] de Phone Number [facility] [address] [facility]. [address] * (ABNORMAL) Protime-INR (10/26/2024 10:48 AM EDT) Protime 23.0(H) 12.1 - 15.1 seconds 10/26/2024 11:26 AM EDT [facility] INR 2.0(H) 0.9 - 1.1 10/26/2024 11:26 AM EDT [facility] Comment: RECOMMENDED THERAPEUTIC RANGES USING INR : Stable oral anticoagulant therapy: 2.0 - 3.0 Mechanical prosthetic heart valve: 2.5 - 3.5 Recurrent acute myocardial infarction: 2.5 - 3.5 Plasma 10/26/2024 10:4 8 AM EDT 10/26/2024 10:53 AM EDT Kemar Sahni MD LAB BLOOD ORDERABLES Final Result Performing Organization Address [facility] de Phone Number [facility] [address] [facility]. [address] * (ABNORMAL) CBC (10/26/2024 10:48 AM EDT) WBC 17.3(H) 3.8 - 10.8 10E3/uL 10/26/2024 11:14 AM EDT [facility] RBC 4.22 4.20 - 5.80 10E6/uL 10/26/2024 11:14 AM EDT [facility] Hemoglobin 12.8(L) 13.2 - 17.1 g/dL 10/26/2024 11:14 AM EDT [facility] Hematocrit 37.2(L) 38.5 - 50.0 % 10/26/2024 11:14 AM EDT [facility] MCV 88.3 80.0 - 100.0 fL 10/26/2024 11:14 AM EDT [facility] MCH 30.4 27.0 - 33.0 pg 10/26/2024 11:14 AM EDT [facility] MCHC 34.4 32.0 - 36.0 g/dL 10/26/2024 11:14 AM EDT [facility] RDW 20.8(H) 11.0 - 15.0 % 10/26/2024 11:14 AM EDT [facility] Platelets 109(L) 140 - 400 10E3/uL 10/26/2024 11:14 AM EDT [facility] MPV 7.5 7.5 - 11.5 fL 10/26/2024 11:14 AM EDT [facility] Whole Blood 10/26/2024 10:4 8 AM EDT 10/26/2024 10:53 AM EDT Kemar Sahni MD LAB BLOOD ORDERABLES Final Result [facility] [address] [place] [address], [facility] * (ABNORMAL) Blood gas, arterial (10/26/2024 10:48 AM EDT) O2 Sat, Arterial 97 10/26/2024 10:54 AM EDT [facility] FIO2 35% 10/26/2024 10:54 AM EDT [facility] pH, Arterial 7.37 7.35 - 7.45 10/26/2024 10:54 AM EDT [facility] pCO2, Arterial 36 35 - 45 mm Hg 10/26/2024 10:54 AM EDT [facility] pO2, Arterial 91 80 - 100 mm Hg 10/26/2024 10:54 AM EDT [facility] HCO3, Arterial 22 22 - 26 mmol/L 10/26/2024 10:54 AM EDT [facility] CO2 Content,Arteri al 22(L) 23 - 27 mmol/L 10/26/2024 10:54 AM EDT [facility] Base Excess, Arterial -3.9(L) -2.0 - 3.0 mmol/L 10/26/2024 10:54 AM EDT [facility] %HBO2, Arterial 94.8(L) 95.0 - 98.0 % 10/26/2024 10:54 AM EDT [facility] Carboxyhemoglo bin, Arterial 1.9 % 10/26/2024 10:54 AM EDT [facility] Comment: CARBOXYHEMOGLOBIN (CO) REFERENCE RANGES: Non-Smokers: <2 % Smokers: <8 % TOXIC: >20 % Methemoglobin, Arterial 0.7 0.0 - 1.5 % 10/26/2024 10:54 AM EDT [facility] Reduced hemoglobin, Arterial 2.5 0.0 - 5.0 % 10/26/2024 10:54 AM EDT [facility] Blood, Arterial 10/26/2024 1 0:48 AM EDT 10/26/2024 10:52 AM EDT us Shay Sifuentes MD LAB BLOOD ORDERABLES Final Resu lt [facility] [address] * (ABNORMAL) Renal Function Panel w/EGFR (10/26/2024 10:48 AM EDT) Sodium 139 133 - 146 mmol/L 10/26/2024 11:26 AM EDT [facility] Potassium 2.9(LL) 3.5 - 5.3 mmol/L 10/26/2024 11:26 AM EDT [facility] Comment:K CRITICAL VALUE WAS PREVIOUSLY CALLED Chloride 107 98 - 110 mmol/L 10/26/2024 11:26 AM EDT [facility] CO2 22 21 - 33 mmol/L 10/26/2024 11:26 AM EDT [facility] Anion Gap 10 3 - 16 mmol/L 10/26/2024 11:26 AM EDT [facility] BUN 61(H) 7 - 25 mg/dL 10/26/2024 11:26 AM EDT [facility] Creatinine 2.78(H) 0.60 - 1.30 mg/dL 10/26/2024 11:26 AM EDT [facility] Glucose 253(H) 70 - 100 mg/dL 10/26/2024 11:26 AM EDT [facility] Calcium 8.8 8.6 - 10.3 mg/dL 10/26/2024 11:26 AM EDT [facility] Phosphorus 4.1 2.1 - 4.7 mg/dL 10/26/2024 11:26 AM EDT [facility] Albumin 2.5(L) 3.5 - 5.7 g/dL 10/26/2024 11:26 AM EDT [facility] Osmolality, Calculated 314(H) 278 - 305 mOsm/kg 10/26/2024 11:26 AM EDT [facility] EGFR 28 10/26/2024 11:26 AM EDT [facility] Comment:As of 2021, the estimated [...] Sahni MD LAB BLOOD ORDERABLES Final Result [facility] [address] [place] [address], [facility] * (ABNORMAL) POC Glucose Monitoring Device (10/26/2024 10:47 AM EDT) POC Glucose Monitoring Device 234(H) 70 - 100 mg/dL 10/26/2024 10:48 AM EDT [facility] Blood 10/26/2024 10:4 7 AM EDT 10/26/2024 10:48 AM EDT us Semaj Mcnair III, MD POINT OF CARE TEST ORDERABLES Final Result Performing Organization Address [facility] Co de Phone Number [facility] [address] [place] [address] * CARISA Rhythm Strip - Scan (10/26/2024 10:45 AM EDT) us Scanning [employer] SCAN DOCS - NO RESULTS Final Res ult * (ABNORMAL) POC Glucose Monitoring Device (10/26/2024 10:08 AM EDT) POC Glucose Monitoring Device 235(H) 70 - 100 mg/dL 10/26/2024 10:09 AM EDT [facility] Blood 10/26/2024 10:0 8 AM EDT 10/26/2024 10:09 AM EDT us Semaj Mcnair III, MD POINT OF CARE TEST ORDERABLES Final Result Performing Organization Address [facility] de Phone Number [facility] [address] [facility] * (ABNORMAL) POC Glucose Monitoring Device (10/26/2024 8:57 AM EDT) POC Glucose Monitoring Device 232(H) 70 - 100 mg/dL 10/26/2024 8:59 AM EDT [facility] Blood 10/26/2024 8:57 AM EDT 10/26/2024 8:58 AM EDT us Semaj Mcnair III, MD POINT OF CARE TEST ORDERABLES Final Result Performing Organization Address City/[facility]/ZIP Co de Phone Number [facility] [address] [place] [address] * ECG 12 lead (MUSE) (10/26/2024 8:16 AM EDT) 10/26/2024 8:16 AM EDT Narrative MUSE - 10/27/2024 10:09 AM EDT Ventricular Rate: 112 BPM QRS Duration: 96 ms QT: 452 ms QTc: 616 ms R [place]: -41 degrees T [place]: 40 degrees Diagnosis Line: Critical Test Result: Long QTc ^ SINUS TACHYCARDIA OCCASIONAL PREMATURE VENTRICULAR COMPLEXES ^ LEFT AXIS DEVIATION, LEFT ANTERIOR HEMIBLOCK ^ PROLONGED QT ^ ABNORMAL ECG ^ ^ Confirmed by MD HA, [facility] ([id number]) on 10/27/2024 10:09:18 AM [...] - 100 mg/dL 10/26/2024 8:01 AM EDT [facility] Blood 10/26/2024 7:5 9 AM EDT 10/26/2024 8:00 AM EDT Semaj Mcnair III, MD POINT OF CARE TEST ORDERABLES Final Result [facility] [address] [id number] * (ABNORMAL) TEG-Bypass/ECMO/Liver HN (Factor function, Platelet/Fibrin Clot Strength w/Clot Breakdown, Heparinase In All Channels) (10/26/2024 7:59 AM EDT) Citrated Kaolin Reaction Time (TEGECMOLIVER) 8.2 4.6 - 9.1 minutes 10/26/2024 10:36 AM EDT [facility] Citrated Kaolin W/Heparinase Reaction Time (TEGECMOLIVER) 8.1 4.3 - 8.3 minutes 10/26/2024 10:36 AM EDT [facility] Citrated Kaolin Maximum Amplitude (TEGECMOLIVER) 46.8(L) 52.0 - 69.0 mm 10/26/2024 10:36 AM EDT [facility] Citrated Functional Fibrinogen W/Heparinase Maximum Amplitude(TEGEC MOLIVER) 10.5(L) 15.0 - 34.0 mm 10/26/2024 10:36 AM EDT [facility] Citrated Rapid Teg W/Heparinase Maximum Amplitude (TEGECMOLIVER) 45.5(L) 53.0 - 69.0 mm 10/26/2024 10:36 AM EDT [facility] Citrated Kaolin w/Heparinase Percent Lysis (TEGECMOLIVER) 0.0 0.0 - 3.2 % 10/26/2024 10:36 AM EDT [facility] Whole Blood (Citrate) 10/26/2024 7:59 AM EDT 10/26/2024 8:05 AM EDT Shay Sifuentes MD LAB BLOOD ORDERABLES Final Resu lt Performing Organization Address [facility]/ZIP Co de Phone Number [facility] [address] [facility]. [address] * (ABNORMAL) POC Glucose Monitoring Device (10/26/2024 6:12 AM EDT) POC Glucose Monitoring Device 196(H) 70 - 100 mg/dL 10/26/2024 6:13 AM EDT [facility] Blood 10/26/2024 6:12 AM EDT 10/26/2024 6:13 AM EDT Semaj Mcnair III, MD POINT OF CARE TEST ORDERABLES Final Result Performing Organization Address City/[facility]/ZIP Co de Phone Number [facility] [address] [facility]. [address] * Lactic Acid (10/26/2024 6:10 AM EDT) Lactate 1.2 0.5 - 2.2 mmol/L 10/26/2024 6:39 AM EDT [facility] Plasma 10/26/2024 6:10 AM EDT 10/26/2024 6:19 AM EDT Sveta Judge MD LAB BLOOD ORDERABLES Final Resu lt Performing Organization Address City/[facility]/ZIP Co de Phone Number [facility] [address] * (ABNORMAL) Fibrinogen (10/26/2024 6:10 AM EDT) Fibrinogen 160(L) 218 - 406 mg/dL 10/26/2024 6:41 AM EDT [facility] Plasma 10/26/2024 6:10 AM EDT 10/26/2024 6:26 AM EDT Sveta Judge MD LAB BLOOD ORDERABLES Final Resu lt Performing Organization Address [facility] Co de Phone Number [facility] [address] * (ABNORMAL) Protime-INR (10/26/2024 6:10 AM EDT) Protime 25.0(H) 12.1 - 15.1 seconds 10/26/2024 6:41 AM EDT [facility] INR 2.2(H) 0.9 - 1.1 10/26/2024 6:41 AM EDT [facility] Comment: RECOMMENDED THERAPEUTIC RANGES USING INR : Stable oral anticoagulant therapy: 2.0 - 3.0 Mechanical prosthetic heart valve: 2.5 - 3.5 Recurrent acute myocardial infarction: 2.5 - 3.5 Plasma 10/26/2024 6:10 AM EDT 10/26/2024 6:26 AM EDT Sveta Judge MD LAB BLOOD ORDERABLES Final Resu lt Performing Organization Address [facility] Co de Phone Number [facility] [address] * (ABNORMAL) Blood gas, arterial (10/26/2024 6:10 AM EDT) O2 Sat, Arterial 98 10/26/2024 6:23 AM EDT [facility] FIO2 60 10/26/2024 6:23 AM EDT [facility] pH, Arterial 7.27(L) 7.35 - 7.45 10/26/2024 6:23 AM EDT [facility] pCO2, Arterial 47(H) 35 - 45 mm Hg 10/26/2024 6:23 AM EDT [facility] pO2, Arterial 127(H) 80 - 100 mm Hg 10/26/2024 6:23 AM EDT [facility] HCO3, Arterial 21(L) 22 - 26 mmol/L 10/26/2024 6:23 AM EDT [facility] CO2 Content,Arteri al 23 23 - 27 mmol/L 10/26/2024 6:23 AM EDT [facility] Base Excess, Arterial -5.4(L) -2.0 - 3.0 mmol/L 10/26/2024 6:23 AM EDT [facility] %HBO2, Arterial 94.6(L) 95.0 - 98.0 % 10/26/2024 6:23 AM EDT [facility] Carboxyhemoglo bin, Arterial 2.0 % 10/26/2024 6:23 AM EDT [facility] Comment: CARBOXYHEMOGLOBIN (CO) REFERENCE RANGES: Non-Smokers: <2 % Smokers: <8 % TOXIC: >20 % Methemoglobin, Arterial 1.6(H) 0.0 - 1.5 % 10/26/2024 6:23 AM EDT [facility] Reduced hemoglobin, Arterial 1.8 0.0 - 5.0 % 10/26/2024 6:23 AM EDT [facility] Blood, Arterial 10/26/2024 6 :10 AM EDT 10/26/2024 6:20 AM EDT us Sveta Judge MD LAB BLOOD ORDERABLES Final Resu lt [facility] [address] [place] [address], [facility] * Magnesium (10/26/2024 6:10 AM EDT) Magnesium 1.5 1.5 - 2.5 mg/dL 10/26/2024 7:09 AM EDT [facility] Plasma 10/26/2024 6:10 AM EDT 10/26/2024 6:23 AM EDT Sveta Judge MD LAB BLOOD ORDERABLES Final Resu lt [facility] [address] * (ABNORMAL) Hepatic Function Panel (10/26/2024 6:10 AM EDT) Total Bilirubin 6.2(H) 0.0 - 1.5 mg/dL 10/26/2024 7:11 AM EDT [facility] Bilirubin, Direct 5.26(H) 0.00 - 0.40 mg/dL 10/26/2024 7:11 AM EDT [facility] AST 1,071(H) 13 - 39 U/L 10/26/2024 7:11 AM EDT [facility] ALT 805(H) 7 - 52 U/L 10/26/2024 7:11 AM EDT [facility] Alkaline Phosphatase 55 36 - 125 U/L 10/26/2024 7:11 AM EDT [facility] Total Protein <3.0(L) 6.4 - 8.9 g/dL 10/26/2024 7:11 AM EDT [facility] Albumin 1.9(L) 3.5 - 5.7 g/dL 10/26/2024 7:11 AM EDT [facility] Bilirubin, Indirect 0.94 0.00 - 1.10 mg/dL 10/26/2024 7:11 AM EDT [facility] Plasma 10/26/2024 6:10 AM EDT 10/26/2024 6:23 AM EDT Sveta Judge MD LAB BLOOD ORDERABLES Final Resu lt [facility] [address] [facility]. [address] * (ABNORMAL) Renal Function Panel w/EGFR (10/26/2024 6:10 AM EDT) Sodium 141 133 - 146 mmol/L 10/26/2024 7:09 AM EDT [facility] Potassium 2.8(LL) 3.5 - 5.3 mmol/L 10/26/2024 7:09 AM EDT [facility] Comment:Critical value previ ously called. Chloride 106 98 - 110 mmol/L 10/26/2024 7:09 AM EDT [facility] CO2 25 21 - 33 mmol/L 10/26/2024 7:09 AM EDT [facility] Anion Gap 10 3 - 16 mmol/L 10/26/2024 7:09 AM EDT [facility] BUN 57(H) 7 - 25 mg/dL 10/26/2024 7:09 AM EDT [facility] Creatinine 2.70(H) 0.60 - 1.30 mg/dL 10/26/2024 7:09 AM EDT [facility] Glucose 210(H) 70 - 100 mg/dL 10/26/2024 7:09 AM EDT [facility] Calcium 8.7 8.6 - 10.3 mg/dL 10/26/2024 7:09 AM EDT [facility] Phosphorus 5.4(H) 2.1 - 4.7 mg/dL 10/26/2024 7:09 AM EDT [facility] Albumin 1.9(L) 3.5 - 5.7 g/dL 10/26/2024 7:11 AM EDT [facility] Osmolality, Calculated 314(H) 278 - 305 mOsm/kg 10/26/2024 7:09 AM EDT [facility] EGFR 29 10/26/2024 7:09 AM T [facility] Comment:As of 2021, the estimated [...] MD LAB BLOOD ORDERABLES Final Resu lt [facility] [address] [place] [address], [facility] * (ABNORMAL) CBC (10/26/2024 6:10 AM EDT) WBC 14.8(H) 3.8 - 10.8 10E3/uL 10/26/2024 6:46 AM EDT [facility] RBC 4.04(L) 4.20 - 5.80 10E6/uL 10/26/2024 6:46 AM EDT [facility] Hemoglobin 12.7(L) 13.2 - 17.1 g/dL 10/26/2024 6:46 AM EDT [facility] Hematocrit 35.9(L) 38.5 - 50.0 % 10/26/2024 6:46 AM EDT [facility] MCV 89.0 80.0 - 100.0 fL 10/26/2024 6:46 AM EDT [facility] MCH 31.3 27.0 - 33.0 pg 10/26/2024 6:46 AM EDT [facility] MCHC 35.2 32.0 - 36.0 g/dL 10/26/2024 6:46 AM EDT [facility] RDW 19.7(H) 11.0 - 15.0 % 10/26/2024 6:46 AM EDT [facility] Platelets 107(L) 140 - 400 10E3/uL 10/26/2024 6:46 AM EDT [facility] MPV 7.4(L) 7.5 - 11.5 fL 10/26/2024 6:46 AM EDT [facility] Whole Blood 10/26/2024 6:10 AM EDT 10/26/2024 6:26 AM EDT Sveta Judge MD LAB BLOOD ORDERABLES Final Resu lt [facility] [address] * (ABNORMAL) POC INR (10/26/2024 5:16 AM EDT) Prothrombin Time INR, POC 2.4(H) 0.8 - 1.4 10/27/2024 6:51 AM EDT [facility] Comment: Test results may vary [...] ORDERABLES Final Result Performing Organization Address [facility]/ZIP Co de Phone Number [facility] [address] [facility]. [address] * POC Sample Type (10/26/2024 5:14 AM EDT) Pathologist [facility] [place] POC Sample Type Arterial 10/26/2024 5:31 AM EDT [facility] Blood, Arterial 10/26/2024 5 :14 AM EDT 10/26/2024 5:31 AM EDT Semaj Mcnair III, MD POINT OF CARE TEST ORDERABLES Final Result [facility] [address] [facility]. [address] * POC Anion Gap (10/26/2024 5:14 AM EDT) POC Anion Gap, Arterial 12 3 - 16 mmol/L 10/26/2024 5:31 AM EDT [facility] Blood, Arterial 10/26/2024 5 :14 AM EDT 10/26/2024 5:31 AM EDT us Semaj Mcnair III, MD POINT OF CARE TEST ORDERABLES Final Result Performing Organization Address City/[facility]/ZIP Co de Phone Number [facility] [address] [facility]. [address] * POC Chloride (10/26/2024 5:14 AM EDT) POC Chloride 104 98 - 110 mmol/L 10/26/2024 5:31 AM EDT [facility] Blood, Arterial 10/26/2024 5 :14 AM EDT 10/26/2024 5:31 AM EDT us Semaj Mcnair III, MD POINT OF CARE TEST ORDERABLES Final Result Performing Organization Address [facility]/ZIP Co de Phone Number [facility] [address] [facility]. [address] * (ABNORMAL) POC Hemoglobin (10/26/2024 5:14 AM EDT) POC Hemoglobin 9.5(L) 14.0 - 18.0 g/dL 10/26/2024 5:31 AM EDT [facility] Blood, Arterial 10/26/2024 5 :14 AM EDT 10/26/2024 5:31 AM EDT us Semaj Mcnair III, MD POINT OF CARE TEST ORDERABLES Final Result Performing Organization Address City/[facility]/ZIP Co de Phone Number [facility] [address] [facility]. [address] * (ABNORMAL) POC hematocrit (10/26/2024 5:14 AM EDT) POC Hematocrit 28.0(L) 40 - 52 % 10/26/2024 5:31 AM EDT [facility] Blood, Arterial 10/26/2024 5 :14 AM EDT 10/26/2024 5:31 AM EDT us Semaj Mcnair III, MD POINT OF CARE TEST ORDERABLES Final Result Performing Organization Address [facility] Co de Phone Number [facility] [address] * POC Lactate (10/26/2024 5:14 AM EDT) POC Lactate 1.76 0.50 - 2.20 mmol/L 10/26/2024 5:31 AM EDT [facility] Blood, Arterial 10/26/2024 5 :14 AM EDT 10/26/2024 5:31 AM EDT us Semaj Mcnair III, MD POINT OF CARE TEST ORDERABLES Final Result Performing Organization Address [facility] Co de Phone Number [facility] [address] [facility]. [address] * (ABNORMAL) POC Glucose (10/26/2024 5:14 AM EDT) POC Glucose, Arterial 183(H) 70 - 100 mg/dL 10/26/2024 5:31 AM EDT [facility] Blood, Arterial 10/26/2024 5 :14 AM EDT 10/26/2024 5:31 AM EDT Semaj Mcnair III, MD POINT OF CARE TEST ORDERABLES Final Result Performing Organization Address City/[facility] Co de Phone Number [facility] [address] [facility]. [address] * (ABNORMAL) POC Ionized Calcium (10/26/2024 5:14 AM EDT) POC Ionized Calcium 5.50(H) 4.50 - 5.30 mg/dL 10/26/2024 5:31 AM EDT [facility] Blood, Arterial 10/26/2024 5 :14 AM EDT 10/26/2024 5:31 AM EDT us Semaj Mcnair III, MD POINT OF CARE TEST ORDERABLES Final Result Performing Organization Address [facility] Co de Phone Number [facility] [address] [facility]. [address] * (ABNORMAL) POC Potassium (10/26/2024 5:14 AM EDT) POC Potassium 2.8(LL) 3.5 - 5.3 mmol/L 10/26/2024 5:31 AM EDT [facility] Blood, Arterial 10/26/2024 5 :14 AM EDT 10/26/2024 5:31 AM EDT us Semaj Mcnair III, MD POINT OF CARE TEST ORDERABLES Final Result Performing Organization Address [facility] Co de Phone Number [facility] [address]. [address] * POC Sodium (10/26/2024 5:14 AM EDT) POC Sodium 138 136 - 146 mmol/L 10/26/2024 5:31 AM EDT [facility] Blood, Arterial 10/26/2024 5 :14 AM EDT 10/26/2024 5:31 AM EDT us Semaj Mcnair III, MD POINT OF CARE TEST ORDERABLES Final Result Performing Organization Address City/[facility] Co de Phone Number [facility] [address] [facility]. [address] * POC TCO2 (10/26/2024 5:14 AM EDT) POC TCO2, Arterial 23 23 - 27 mmol/L 10/26/2024 5:31 AM EDT [facility] Blood, Arterial 10/26/2024 5 :14 AM EDT 10/26/2024 5:31 AM EDT us Semaj Mcnair III, MD POINT OF CARE TEST ORDERABLES Final Result [facility] [address] * (ABNORMAL) POC O2 SAT (10/26/2024 5:14 AM EDT) POC O2 Saturation, Arterial 99(H) 95 - 98 % 10/26/2024 5:31 AM EDT [facility] Blood, Arterial 10/26/2024 5 :14 AM EDT 10/26/2024 5:31 AM EDT Semaj Mcnair III, MD POINT OF CARE TEST ORDERABLES Final Result Performing Organization Address City/[facility] Co de Phone Number [facility] [address] * (ABNORMAL) POC Base Excess (10/26/2024 5:14 AM EDT) POC Base Excess, Arterial -5(L) -2 - 3 mmol/L 10/26/2024 5:31 AM EDT [facility] Blood, Arterial 10/26/2024 5 :14 AM EDT 10/26/2024 5:31 AM EDT us Semaj Mcnair III, MD POINT OF CARE TEST ORDERABLES Final Result [facility] [address] * POC HCO3 (10/26/2024 5:14 AM EDT) POC HCO3, Arterial 22 22 - 26 mmol/L 10/26/2024 5:31 AM EDT [facility] Blood, Arterial 10/26/2024 5 :14 AM EDT 10/26/2024 5:31 AM EDT Semaj Mcnair III, MD POINT OF CARE TEST ORDERABLES Final Result [facility] [address] [facility]. [address] * (ABNORMAL) POC PO2 (10/26/2024 5:14 AM EDT) POC pO2, Arterial 133(H) 80 - 100 mm Hg 10/26/2024 5:31 AM EDT [facility] Blood, Arterial 10/26/2024 5 :14 AM EDT 10/26/2024 5:31 AM EDT Semaj Mcnair III, MD POINT OF CARE TEST ORDERABLES Final Result Performing Organization Address [facility] Co de Phone Number [facility] [address] [facility]. [address] * POC PCO2 (10/26/2024 5:14 AM EDT) POC pCO2, Arterial 45 35 - 45 mm Hg 10/26/2024 5:31 AM EDT [facility] Blood, Arterial 10/26/2024 5 :14 AM EDT 10/26/2024 5:31 AM EDT Semaj Mcnair III, MD POINT OF CARE TEST ORDERABLES Final Result Performing Organization Address City/[facility]/ZIP Co de Phone Number [facility] [address] * (ABNORMAL) POC pH (10/26/2024 5:14 AM EDT) POC pH, Arterial 7.29(L) 7.35 - 7.45 10/26/2024 5:31 AM EDT [facility] Blood, Arterial 10/26/2024 5 :14 AM EDT 10/26/2024 5:31 AM EDT Semaj Mcnair III, MD POINT OF CARE TEST ORDERABLES Final Result Performing Organization Address City/[facility] Co de Phone Number [facility] [address] * Transfuse Cryoprecipitate (10/26/2024 4:37 AM EDT) Result [facility] Eber Quinones MD NURSING TREATMENT ORDERA BLES - BLOOD ADMIN Final Result * Transfuse Cryoprecipitate (10/26/2024 4:37 AM EDT) Eber Quinones MD NURSING TREATMENT ORDERA BLES - BLOOD ADMIN Final Result * (ABNORMAL) POC INR (10/26/2024 4:27 AM EDT) Prothrombin Time INR, POC 2.3(H) 0.8 - 1.4 10/27/2024 6:51 AM EDT [facility] Comment: Test results may vary [...] ORDERABLES Final Result Performing Organization Address [facility] Co de Phone Number [facility] [address] * POC Sample Type (10/26/2024 4:24 AM EDT) POC Sample Type Arterial 10/26/2024 5:09 AM EDT [facility] Blood, Arterial 10/26/2024 4 :24 AM EDT 10/26/2024 5:09 AM EDT Semaj Mcnair III, MD POINT OF CARE TEST ORDERABLES Final Result [facility] [address] * POC Anion Gap (10/26/2024 4:24 AM EDT) POC Anion Gap, Arterial 14 3 - 16 mmol/L 10/26/2024 5:09 AM EDT [facility] Blood, Arterial 10/26/2024 4 :24 AM EDT 10/26/2024 5:09 AM EDT us Semaj Mcnair III, MD POINT OF CARE TEST ORDERABLES Final Result [facility] [address] * POC Chloride (10/26/2024 4:24 AM EDT) POC Chloride 103 98 - 110 mmol/L 10/26/2024 5:09 AM EDT [facility] Blood, Arterial 10/26/2024 4 :24 AM EDT 10/26/2024 5:09 AM EDT us Semaj Mcnair III, MD POINT OF CARE TEST ORDERABLES Final Result [facility] [address] * (ABNORMAL) POC Hemoglobin (10/26/2024 4:24 AM EDT) POC Hemoglobin 10.3(L) 14.0 - 18.0 g/dL 10/26/2024 5:09 AM EDT [facility] Blood, Arterial 10/26/2024 4 :24 AM EDT 10/26/2024 5:09 AM EDT us Semaj Mcnair III, MD POINT OF CARE TEST ORDERABLES Final Result [facility] [address] * (ABNORMAL) POC hematocrit (10/26/2024 4:24 AM EDT) POC Hematocrit 30.0(L) 40 - 52 % 10/26/2024 5:09 AM EDT [facility] Blood, Arterial 10/26/2024 4 :24 AM EDT 10/26/2024 5:09 AM EDT us Semaj Mcnair III, MD POINT OF CARE TEST ORDERABLES Final Result [facility] [address] * (ABNORMAL) POC Lactate (10/26/2024 4:24 AM EDT) POC Lactate 2.43(H) 0.50 - 2.20 mmol/L 10/26/2024 5:09 AM EDT [facility] Blood, Arterial 10/26/2024 4 :24 AM EDT 10/26/2024 5:09 AM EDT us Semaj Mcnair III, MD POINT OF CARE TEST ORDERABLES Final Result Performing Organization Address [facility]/ZIP Co de Phone Number [facility] [address] [facility] * (ABNORMAL) POC Glucose (10/26/2024 4:24 AM EDT) POC Glucose, Arterial 185(H) 70 - 100 mg/dL 10/26/2024 5:09 AM EDT [facility] Blood, Arterial 10/26/2024 4 :24 AM EDT 10/26/2024 5:09 AM EDT us Semaj Mcnair III, MD POINT OF CARE TEST ORDERABLES Final Result [facility] [address] [facility] * POC Ionized Calcium (10/26/2024 4:24 AM EDT) POC Ionized Calcium 5.20 4.50 - 5.30 mg/dL 10/26/2024 5:09 AM EDT [facility] Blood, Arterial 10/26/2024 4 :24 AM EDT 10/26/2024 5:09 AM EDT us Semaj Mcnair III, MD POINT OF CARE TEST ORDERABLES Final Result [facility] [address] [facility] * (ABNORMAL) POC Potassium (10/26/2024 4:24 AM EDT) POC Potassium 2.8(LL) 3.5 - 5.3 mmol/L 10/26/2024 5:09 AM EDT [facility] Blood, Arterial 10/26/2024 4 :24 AM EDT 10/26/2024 5:09 AM EDT us Semaj Mcnair III, MD POINT OF CARE TEST ORDERABLES Final Result Performing Organization Address City/[facility] Co de Phone Number [facility] [address] [facility] * POC Sodium (10/26/2024 4:24 AM EDT) POC Sodium 139 136 - 146 mmol/L 10/26/2024 5:09 AM EDT [facility] Blood, Arterial 10/26/2024 4 :24 AM EDT 10/26/2024 5:09 AM EDT us Semaj Mcnair III, MD POINT OF CARE TEST ORDERABLES Final Result [facility] [address] [facility] * POC TCO2 (10/26/2024 4:24 AM EDT) POC TCO2, Arterial 23 23 - 27 mmol/L 10/26/2024 5:09 AM EDT [facility] Blood, Arterial 10/26/2024 4 :24 AM EDT 10/26/2024 5:09 AM EDT us Semaj Mcnair III, MD POINT OF CARE TEST ORDERABLES Final Result [facility] [address] [facility] * POC O2 SAT (10/26/2024 4:24 AM EDT) POC O2 Saturation, Arterial 96 95 - 98 % 10/26/2024 5:09 AM EDT [facility] Blood, Arterial 10/26/2024 4 :24 AM EDT 10/26/2024 5:09 AM EDT Semaj Mcnair III, MD POINT OF CARE TEST ORDERABLES Final Result Performing Organization Address City/[facility] Co de Phone Number [facility] [address] [facility] * (ABNORMAL) POC Base Excess (10/26/2024 4:24 AM EDT) POC Base Excess, Arterial -5(L) -2 - 3 mmol/L 10/26/2024 5:09 AM EDT [facility] Blood, Arterial 10/26/2024 4 :24 AM EDT 10/26/2024 5:09 AM EDT us Semaj Mcnair III, MD POINT OF CARE TEST ORDERABLES Final Result [facility] [address] [facility]. [address] * POC HCO3 (10/26/2024 4:24 AM EDT) POC HCO3, Arterial 22 22 - 26 mmol/L 10/26/2024 5:09 AM EDT [facility] Blood, Arterial 10/26/2024 4 :24 AM EDT 10/26/2024 5:09 AM EDT us Semaj Mcnair III, MD POINT OF CARE TEST ORDERABLES Final Result Performing Organization Address City/[facility]/ZIP Co de Phone Number [facility] [address] * POC PO2 (10/26/2024 4:24 AM EDT) POC pO2, Arterial 93 80 - 100 mm Hg 10/26/2024 5:09 AM EDT [facility] Blood, Arterial 10/26/2024 4 :24 AM EDT 10/26/2024 5:09 AM EDT Semaj Mcnair III, MD POINT OF CARE TEST ORDERABLES Final Result Performing Organization Address [facility] Co de Phone Number [facility] [address] * POC PCO2 (10/26/2024 4:24 AM EDT) POC pCO2, Arterial 44 35 - 45 mm Hg 10/26/2024 5:09 AM EDT [facility] Blood, Arterial 10/26/2024 4 :24 AM EDT 10/26/2024 5:09 AM EDT Semaj Mcnair III, MD POINT OF CARE TEST ORDERABLES Final Result Performing Organization Address City/[facility] Co de Phone Number [facility] [address] [facility]. [address] * (ABNORMAL) POC pH (10/26/2024 4:24 AM EDT) POC pH, Arterial 7.30(L) 7.35 - 7.45 10/26/2024 5:09 AM EDT [facility] Blood, Arterial 10/26/2024 4 :24 AM EDT 10/26/2024 5:09 AM EDT Semaj Mcnair III, MD POINT OF CARE TEST ORDERABLES Final Result Performing Organization Address City/[facility] Co de Phone Number [facility] [address] [facility]. [address] * Transfuse Platelets (10/26/2024 4:14 AM [...] TEST ORDERABLES Final Result Performing Organization Address City/[facility]/ZIP Co de Phone Number [facility] [address] [facility]. [address] * POC Sample Type (10/26/2024 3:31 AM EDT) POC Sample Type Arterial 10/26/2024 4:11 AM EDT [facility] Blood, Arterial 10/26/2024 3 :31 AM EDT 10/26/2024 4:11 AM EDT us Semaj Mcnair III, MD POINT OF CARE TEST ORDERABLES Final Result Performing Organization Address City/[facility] Co de Phone Number [facility] [address] * POC Anion Gap (10/26/2024 3:31 AM EDT) POC Anion Gap, Arterial 15 3 - 16 mmol/L 10/26/2024 4:11 AM EDT [facility] Blood, Arterial 10/26/2024 3 :31 AM EDT 10/26/2024 4:11 AM EDT us Semaj Mcnair III, MD POINT OF CARE TEST ORDERABLES Final Result Performing Organization Address [facility] Co de Phone Number [facility] [address] [place] * POC Chloride (10/26/2024 3:31 AM EDT) POC Chloride 105 98 - 110 mmol/L 10/26/2024 4:11 AM EDT [facility] Blood, Arterial 10/26/2024 3 :31 AM EDT 10/26/2024 4:11 AM EDT us Semaj Mcnair III, MD POINT OF CARE TEST ORDERABLES Final Result Performing Organization Address City/[facility] Co de Phone Number [facility] [address] [place] * (ABNORMAL) POC Hemoglobin (10/26/2024 3:31 AM EDT) POC Hemoglobin 9.7(L) 14.0 - 18.0 g/dL 10/26/2024 4:11 AM EDT [facility] Blood, Arterial 10/26/2024 3 :31 AM EDT 10/26/2024 4:11 AM EDT us Semaj Mcnair III, MD POINT OF CARE TEST ORDERABLES Final Result Performing Organization Address City/[facility] Co de Phone Number [facility] [address] [place] [address]. [address] * (ABNORMAL) POC hematocrit (10/26/2024 3:31 AM EDT) POC Hematocrit 29.0(L) 40 - 52 % 10/26/2024 4:11 AM EDT [facility] Blood, Arterial 10/26/2024 3 :31 AM EDT 10/26/2024 4:11 AM EDT us Semaj Mcnair III, MD POINT OF CARE TEST ORDERABLES Final Result Performing Organization Address [facility] Co de Phone Number [facility] [address] [place] [address]. [address] * (ABNORMAL) POC Lactate (10/26/2024 3:31 AM EDT) POC Lactate 3.54(H) 0.50 - 2.20 mmol/L 10/26/2024 4:11 AM EDT [facility] Blood, Arterial 10/26/2024 3 :31 AM EDT 10/26/2024 4:11 AM EDT us Semaj Mcnair III, MD POINT OF CARE TEST ORDERABLES Final Result Performing Organization Address City/[facility] Co de Phone Number [facility] [address] [place] [address]. [address] * (ABNORMAL) POC Glucose (10/26/2024 3:31 AM EDT) POC Glucose, Arterial 153(H) 70 - 100 mg/dL 10/26/2024 4:11 AM EDT [facility] Blood, Arterial 10/26/2024 3 :31 AM EDT 10/26/2024 4:11 AM EDT us Semaj Mcnair III, MD POINT OF CARE TEST ORDERABLES Final Result [facility] [address] [facility]. [address] * POC Ionized Calcium (10/26/2024 3:31 AM EDT) POC Ionized Calcium 5.10 4.50 - 5.30 mg/dL 10/26/2024 4:11 AM EDT [facility] Blood, Arterial 10/26/2024 3 :31 AM EDT 10/26/2024 4:11 AM EDT Semaj Mcnair III, MD POINT OF CARE TEST ORDERABLES Final Result Performing Organization Address City/[facility] Co de Phone Number [facility] [address] [place] [address]. [address] * (ABNORMAL) POC Potassium (10/26/2024 3:31 AM EDT) POC Potassium 2.6(LL) 3.5 - 5.3 mmol/L 10/26/2024 4:11 AM EDT [facility] Blood, Arterial 10/26/2024 3 :31 AM EDT 10/26/2024 4:11 AM EDT us Semaj Mcnair III, MD POINT OF CARE TEST ORDERABLES Final Result [facility] [address] [facility]. [address] * POC Sodium (10/26/2024 3:31 AM EDT) POC Sodium 138 136 - 146 mmol/L 10/26/2024 4:11 AM EDT [facility] Blood, Arterial 10/26/2024 3 :31 AM EDT 10/26/2024 4:11 AM EDT us Semaj Mcnair III, MD POINT OF CARE TEST ORDERABLES Final Result Performing Organization Address [facility] Co de Phone Number [facility] [address] [place] * (ABNORMAL) POC TCO2 (10/26/2024 3:31 AM EDT) POC TCO2, Arterial 19(L) 23 - 27 mmol/L 10/26/2024 4:11 AM EDT [facility] Blood, Arterial 10/26/2024 3 :31 AM EDT 10/26/2024 4:11 AM EDT us Semaj Mcnair III, MD POINT OF CARE TEST ORDERABLES Final Result Performing Organization Address [facility] Co de Phone Number [facility] [address] * POC O2 SAT (10/26/2024 3:31 AM EDT) POC O2 Saturation, Arterial 97 95 - 98 % 10/26/2024 4:11 AM EDT [facility] Blood, Arterial 10/26/2024 3 :31 AM EDT 10/26/2024 4:11 AM EDT us Semaj Mcnair III, MD POINT OF CARE TEST ORDERABLES Final Result Performing Organization Address [facility] Co de Phone Number [facility] [address] [facility]. [address] * (ABNORMAL) POC Base Excess (10/26/2024 3:31 AM EDT) POC Base Excess, Arterial -9(L) -2 - 3 mmol/L 10/26/2024 4:11 AM EDT [facility] Blood, Arterial 10/26/2024 3 :31 AM EDT 10/26/2024 4:11 AM EDT us Semaj Mcnair III, MD POINT OF CARE TEST ORDERABLES Final Result [facility] [address] [place] * (ABNORMAL) POC HCO3 (10/26/2024 3:31 AM EDT) POC HCO3, Arterial 18(L) 22 - 26 mmol/L 10/26/2024 4:11 AM EDT [facility] Blood, Arterial 10/26/2024 3 :31 AM EDT 10/26/2024 4:11 AM EDT us Semaj Mcnair III, MD POINT OF CARE TEST ORDERABLES Final Result Performing Organization Address City/[facility]/ZIP Co de Phone Number [facility] [address] [place] * (ABNORMAL) POC PO2 (10/26/2024 3:31 AM EDT) POC pO2, Arterial 104(H) 80 - 100 mm Hg 10/26/2024 4:11 AM EDT [facility] Blood, Arterial 10/26/2024 3 :31 AM EDT 10/26/2024 4:11 AM EDT us Semaj Mcnair III, MD POINT OF CARE TEST ORDERABLES Final Result Performing Organization Address City/[facility]/ZIP Co de Phone Number [facility] [address] [place] * POC PCO2 (10/26/2024 3:31 AM EDT) POC pCO2, Arterial 42 35 - 45 mm Hg 10/26/2024 4:11 AM EDT [facility] Blood, Arterial 10/26/2024 3 :31 AM EDT 10/26/2024 4:11 AM EDT us Semaj Mcnair III, MD POINT OF CARE TEST ORDERABLES Final Result [facility] [address] * (ABNORMAL) POC pH (10/26/2024 3:31 AM EDT) [facility] POC pH, Arterial 7.24(L) 7.35 - 7.45 10/26/2024 4:11 AM EDT [facility] Blood, Arterial 10/26/2024 3 :31 AM EDT 10/26/2024 4:11 AM EDT us Semaj Mcnair III, MD POINT OF CARE TEST ORDERABLES Final Result Performing Organization Address [facility]/ZIP Co de Phone Number [facility] [address] [facility]. [address] * (ABNORMAL) TEG-Global With Lysis (Baseline TEG with LY30, Will NOT Show Heparin Effect) (53:31 AM EDT) [facility] Citrated Kaolin Reaction Time (TEGLYSIS) 6.8 4.6 - 9.1 minutes 10/26/2024 5:02 AM EDT [facility] Citrated Rapid Teg Maximum Amplitude (TEGLYSIS) <40.0(L) 52.0 - 70.0 mm 10/26/2024 5:02 AM EDT [facility] Citrated Functional Fibrinogen Maximum Amplitude (TEGLYSIS) <4.0(L) 15.0 - 32.0 mm 10/26/2024 5:02 AM EDT [facility] Citrated Kaolin Percent Lysis (TEGLYSIS) 1.4 0.0 - 2.6 % 10/26/2024 5:02 AM EDT [facility] Whole Blood (Citrate) 10/26/2024 3:31 AM EDT 10/26/2024 3:40 AM EDT us Eber Quinones MD LAB BLOOD ORDERABLES Fin al Result [facility] [address] * (ABNORMAL) CBC (10/26/2024 3:31 AM EDT) WBC 9.5 3.8 - 10.8 10E3/uL 10/26/2024 3:48 AM EDT [facility] RBC 3.68(L) 4.20 - 5.80 10E6/uL 10/26/2024 3:48 AM EDT [facility] Hemoglobin 11.5(L) 13.2 - 17.1 g/dL 10/26/2024 3:48 AM EDT [facility] Hematocrit 33.0(L) 38.5 - 50.0 % 10/26/2024 3:48 AM EDT [facility] MCV 89.6 80.0 - 100.0 fL 10/26/2024 3:48 AM EDT [facility] MCH 31.1 27.0 - 33.0 pg 10/26/2024 3:48 AM EDT [facility] MCHC 34.8 32.0 - 36.0 g/dL 10/26/2024 3:48 AM EDT [facility] RDW 19.3(H) 11.0 - 15.0 % 10/26/2024 3:48 AM EDT [facility] Platelets 67(L) 140 - 400 10E3/uL 10/26/2024 3:48 AM EDT [facility] MPV 7.9 7.5 - 11.5 fL 10/26/2024 3:48 AM EDT [facility] Whole Blood 10/26/2024 3:31 AM EDT 10/26/2024 3:40 AM EDT us Eber Quinones MD LAB BLOOD ORDERABLES Fin al Result [facility] [address] [place] [address], [facility] * (ABNORMAL) Protime-INR (10/26/2024 3:31 AM EDT) Protime 27.0(H) 12.1 - 15.1 seconds 10/26/2024 3:51 AM EDT [facility] INR 2.4(H) 0.9 - 1.1 10/26/2024 3:51 AM EDT [facility] Comment: RECOMMENDED THERAPEUTIC RANGES USING INR : Stable oral anticoagulant therapy: 2.0 - 3.0 Mechanical prosthetic heart valve: 2.5 - 3.5 Recurrent acute myocardial infarction: 2.5 - 3.5 Plasma 10/26/2024 3:31 AM EDT 10/26/2024 3:40 AM EDT Result [facility] Eber Quinones MD LAB BLOOD ORDERABLES Fin al Result Performing Organization Address City/[facility] Co de Phone Number [facility] [address] [facility]. [address] * (ABNORMAL) Fibrinogen (10/26/2024 3:31 AM EDT) [facility] Fibrinogen 104(L) 218 - 406 mg/dL 10/26/2024 3:56 AM EDT [facility] Plasma 10/26/2024 3:31 AM EDT 10/26/2024 3:40 AM EDT Result [facility] Eber Quinones MD LAB BLOOD ORDERABLES Fin al Result Performing Organization Address [facility] de Phone Number [facility] [address] [facility]. [address] * Transfuse Fresh Frozen Plasma (10/26/2024 3:16 AM EDT) Result [facility] Ben Blake MD NURSING TREATMENT ORDERABLES - BLOOD ADMIN Final Result * Transfuse Fresh Frozen Plasma (10/26/2024 3:15 AM EDT) Result [facility] us Ben Blake MD NURSING TREATMENT ORDERABLES - BLOOD ADMIN Final Result * Transfuse RBC (10/26/2024 3:14 AM EDT) us Ben Blake MD NURSING TREATMENT ORDERABLES - BLOOD ADMIN Final Result * Transfuse RBC (10/26/2024 3:14 AM EDT) us Ben Blake MD NURSING TREATMENT ORDERABLES - BLOOD ADMIN Final Result * Transfuse RBC (10/26/2024 2:40 AM EDT) Result [facility] us Ben Blake MD NURSING TREATMENT ORDERABLES - BLOOD ADMIN Final Result * Transfuse Fresh Frozen Plasma (10/26/2024 2:39 AM EDT) Result [facility] us Ben Blake MD NURSING TREATMENT ORDERABLES - BLOOD ADMIN Final Result * Transfuse Fresh Frozen Plasma (10/26/2024 2:24 AM EDT) Result [facility] Ben Blake MD NURSING TREATMENT ORDERABLES - BLOOD ADMIN Final Result * Transfuse Fresh Frozen Plasma (10/26/2024 2:03 AM EDT) Result [facility] Ben Blake MD NURSING TREATMENT ORDERABLES - BLOOD ADMIN Final Result * Transfuse RBC (10/26/2024 2:01 AM EDT) Result [facility] Ben Blake MD NURSING TREATMENT ORDERABLES - BLOOD ADMIN Final Result * Transfuse RBC (10/26/2024 1:45 AM EDT) Result [facility] Ben Blake MD NURSING TREATMENT ORDERABLES - BLOOD ADMIN Final Result * Transfuse RBC (10/26/2024 1:45 AM EDT) Result [facility] Ben Balke MD NURSING TREATMENT ORDERABLES - [...] 10/27/2024 6:51 AM EDT Result [facility] us Semaj Mcnair III, MD POINT OF CARE TEST ORDERABLES Final Result [facility] [address] [place] [address], [facility] * Transfuse Fresh Frozen Plasma (10/26/2024 1:41 AM EDT) us Ben Blake MD NURSING TREATMENT ORDERABLES - BLOOD ADMIN Final Result * Transfuse RBC (10/26/2024 1:40 AM EDT) us Ben Blake MD NURSING TREATMENT ORDERABLES - BLOOD ADMIN Final Result * POC Sample Type (10/26/2024 1:40 AM EDT) POC Sample Type Arterial 10/26/2024 2:32 AM EDT [facility] Blood, Arterial 10/26/2024 1 :40 AM EDT 10/26/2024 2:32 AM EDT us Semaj Mcnair III, MD POINT OF CARE TEST ORDERABLES Final Result Performing Organization Address [facility] de Phone Number [facility] [address] [place] [address] * POC Anion Gap (10/26/2024 1:40 AM EDT) Pathologist [facility] POC Anion Gap, Arterial 13 3 - 16 mmol/L 10/26/2024 2:32 AM EDT [facility] Blood, Arterial 10/26/2024 1 :40 AM EDT 10/26/2024 2:32 AM EDT us Semaj Mcnair III, MD POINT OF CARE TEST ORDERABLES Final Result Performing Organization Address [facility] de Phone Number [facility] [address] [place] [address] * POC Chloride (10/26/2024 1:40 AM EDT) Pathologist [facility] POC Chloride 104 98 - 110 mmol/L 10/26/2024 2:32 AM EDT [facility] Blood, Arterial 10/26/2024 1 :40 AM EDT 10/26/2024 2:32 AM EDT us Semaj Mcnair III, MD POINT OF CARE TEST ORDERABLES Final Result Performing Organization Address City/[facility]/ZIP Co de Phone Number [facility] [address] [facility]. [address] * (ABNORMAL) POC Hemoglobin (10/26/2024 1:40 AM EDT) POC Hemoglobin 7.4(L) 14.0 - 18.0 g/dL 10/26/2024 2:32 AM EDT [facility] Blood, Arterial 10/26/2024 1 :40 AM EDT 10/26/2024 2:32 AM EDT us Semaj Mcnair III, MD POINT OF CARE TEST ORDERABLES Final Result Performing Organization Address [facility] Co de Phone Number [facility] [address] [facility]. [address] * (ABNORMAL) POC hematocrit (10/26/2024 1:40 AM EDT) POC Hematocrit 22.0(L) 40 - 52 % 10/26/2024 2:32 AM EDT [facility] Blood, Arterial 10/26/2024 1 :40 AM EDT 10/26/2024 2:32 AM EDT us Semaj Mcnair III, MD POINT OF CARE TEST ORDERABLES Final Result Performing Organization Address City/[facility] Co de Phone Number [facility] [address] [facility]. [address] * (ABNORMAL) POC Lactate (10/26/2024 1:40 AM EDT) POC Lactate 2.30(H) 0.50 - 2.20 mmol/L 10/26/2024 2:32 AM EDT [facility] Blood, Arterial 10/26/2024 1 :40 AM EDT 10/26/2024 2:32 AM EDT us Semaj Mcnair III, MD POINT OF CARE TEST ORDERABLES Final Result Performing Organization Address [facility] Co de Phone Number [facility] [address] [facility]. [address] * (ABNORMAL) POC Glucose (10/26/2024 1:40 AM EDT) POC Glucose, Arterial 116(H) 70 - 100 mg/dL 10/26/2024 2:32 AM EDT [facility] Blood, Arterial 10/26/2024 1 :40 AM EDT 10/26/2024 2:32 AM EDT Semaj Mcnair III, MD POINT OF CARE TEST ORDERABLES Final Result Performing Organization Address [facility] Co de Phone Number [facility] [address] [facility]. [address] * (ABNORMAL) POC Ionized Calcium (10/26/2024 1:40 AM EDT) POC Ionized Calcium 4.10(L) 4.50 - 5.30 mg/dL 10/26/2024 2:32 AM EDT [facility] Blood, Arterial 10/26/2024 1 :40 AM EDT 10/26/2024 2:32 AM EDT us Semaj Mcnair III, MD POINT OF CARE TEST ORDERABLES Final Result Performing Organization Address [facility] Co de Phone Number [facility] [address] [place] [address]. [address] * (ABNORMAL) POC Potassium (10/26/2024 1:40 AM EDT) POC Potassium 2.6(LL) 3.5 - 5.3 mmol/L 10/26/2024 2:32 AM EDT [facility] Blood, Arterial 10/26/2024 1 :40 AM EDT 10/26/2024 2:32 AM EDT us Semaj Mcnair III, MD POINT OF CARE TEST ORDERABLES Final Result Performing Organization Address City/[facility]/ZIP Co de Phone Number [facility] [address] [facility]. [address] * (ABNORMAL) POC Sodium (10/26/2024 1:40 AM EDT) POC Sodium 135(L) 136 - 146 mmol/L 10/26/2024 2:32 AM EDT [facility] Blood, Arterial 10/26/2024 1 :40 AM EDT 10/26/2024 2:32 AM EDT us Semaj Mcnair III, MD POINT OF CARE TEST ORDERABLES Final Result Performing Organization Address [facility] Co de Phone Number [facility] [address] [facility]. [address] * (ABNORMAL) POC TCO2 (10/26/2024 1:40 AM EDT) POC TCO2, Arterial 19(L) 23 - 27 mmol/L 10/26/2024 2:32 AM EDT [facility] Blood, Arterial 10/26/2024 1 :40 AM EDT 10/26/2024 2:32 AM EDT us Semaj Mcnair III, MD POINT OF CARE TEST ORDERABLES Final Result Performing Organization Address City/[facility] Co de Phone Number [facility] [address] [facility]. [address] * (ABNORMAL) POC O2 SAT (10/26/2024 1:40 AM EDT) POC O2 Saturation, Arterial 99(H) 95 - 98 % 10/26/2024 2:32 AM EDT [facility] Blood, Arterial 10/26/2024 1 :40 AM EDT 10/26/2024 2:32 AM EDT us Semaj Mcnair III, MD POINT OF CARE TEST ORDERABLES Final Result Performing Organization Address [facility] Co de Phone Number [facility] [address] [facility]. [address] * (ABNORMAL) POC Base Excess (10/26/2024 1:40 AM EDT) POC Base Excess, Arterial -7(L) -2 - 3 mmol/L 10/26/2024 2:32 AM EDT [facility] Blood, Arterial 10/26/2024 1 :40 AM EDT 10/26/2024 2:32 AM EDT us Semaj Mcnair III, MD POINT OF CARE TEST ORDERABLES Final Result Performing Organization Address [facility] Co de Phone Number [facility] [address] [facility]. [address] * (ABNORMAL) POC HCO3 (10/26/2024 1:40 AM EDT) POC HCO3, Arterial 18(L) 22 - 26 mmol/L 10/26/2024 2:32 AM EDT [facility] Blood, Arterial 10/26/2024 1 :40 AM EDT 10/26/2024 2:32 AM EDT us Semaj Mcnair III, MD POINT OF CARE TEST ORDERABLES Final Result Performing Organization Address [facility] Co de Phone Number [facility] [address] * (ABNORMAL) POC PO2 (10/26/2024 1:40 AM EDT) POC pO2, Arterial 145(H) 80 - 100 mm Hg 10/26/2024 2:32 AM EDT [facility] Blood, Arterial 10/26/2024 1 :40 AM EDT 10/26/2024 2:32 AM EDT us Semaj Mcnair III, MD POINT OF CARE TEST ORDERABLES Final Result Performing Organization Address [facility] Co de Phone Number [facility] [address] * (ABNORMAL) POC PCO2 (10/26/2024 1:40 AM EDT) POC pCO2, Arterial 33(L) 35 - 45 mm Hg 10/26/2024 2:32 AM EDT [facility] Blood, Arterial 10/26/2024 1 :40 AM EDT 10/26/2024 2:32 AM EDT Semaj Mcnair III, MD POINT OF CARE TEST ORDERABLES Final Result Performing Organization Address [facility] Co de Phone Number [facility] [address] [facility]. [address] * POC pH (10/26/2024 1:40 AM EDT) Pathologist [facility] POC pH, Arterial 7.35 7.35 - 7.45 10/26/2024 2:32 AM EDT [facility] Blood, Arterial 10/26/2024 1 :40 AM EDT 10/26/2024 2:32 AM EDT Semaj Mcnair III, MD POINT OF CARE TEST ORDERABLES Final Result Performing Organization Address [facility] Co de Phone Number [facility] [address] [facility]. [address] * Transfuse Fresh Frozen Plasma (10/26/2024 1:20 AM EDT) Ben Blake MD NURSING TREATMENT ORDERABLES - BLOOD ADMIN Final Result * Transfuse RBC (10/26/2024 12:56 AM EDT) Ben Blake MD NURSING TREATMENT ORDERABLES - BLOOD ADMIN Final Result * (ABNORMAL) POC INR (10/26/2024 12:41 AM EDT) Prothrombin Time INR, POC 2.0(H) 0.8 - 1.4 10/27/2024 6:51 AM EDT [facility] Comment: Test results may vary [...] TEST ORDERABLES Final Result Performing Organization Address City/[facility]/ZIP Co de Phone Number [facility] [address] * POC Sample Type (10/26/2024 12:39 AM EDT) POC Sample Type Arterial 10/26/2024 1:38 AM EDT [facility] Blood, Arterial 10/26/2024 1 2:39 AM EDT 10/26/2024 1:38 AM EDT us Semaj Mcnair III, MD POINT OF CARE TEST ORDERABLES Final Result Performing Organization Address [facility] Co de Phone Number [facility] [address] * POC Anion Gap (10/26/2024 12:39 AM EDT) POC Anion Gap, Arterial 13 3 - 16 mmol/L 10/26/2024 1:38 AM EDT [facility] Blood, Arterial 10/26/2024 1 2:39 AM EDT 10/26/2024 1:38 AM EDT us Semaj Mcnair III, MD POINT OF CARE TEST ORDERABLES Final Result Performing Organization Address City/[facility] Co de Phone Number [facility] [address] * POC Chloride (10/26/2024 12:39 AM EDT) [facility] POC Chloride 103 98 - 110 mmol/L 10/26/2024 1:38 AM EDT [facility] Blood, Arterial 10/26/2024 1 2:39 AM EDT 10/26/2024 1:38 AM EDT us Semaj Mcnair III, MD POINT OF CARE TEST ORDERABLES Final Result Performing Organization Address City/[facility]/ZIP Co de Phone Number [facility] [address] [place] [address]. [address] * (ABNORMAL) POC Hemoglobin (10/26/2024 12:39 AM EDT) [facility] POC Hemoglobin 7.9(L) 14.0 - 18.0 g/dL 10/26/2024 1:38 AM EDT [facility] Blood, Arterial 10/26/2024 1 2:39 AM EDT 10/26/2024 1:38 AM EDT us Semaj Mcnair III, MD POINT OF CARE TEST ORDERABLES Final Result Performing Organization Address [facility] Co de Phone Number [facility] [address] [place] [address]. [address] * (ABNORMAL) POC hematocrit (10/26/2024 12:39 AM EDT) [facility] POC Hematocrit 23.0(L) 40 - 52 % 10/26/2024 1:38 AM EDT [facility] Blood, Arterial 10/26/2024 1 2:39 AM EDT 10/26/2024 1:38 AM EDT us Semaj Mcnair III, MD POINT OF CARE TEST ORDERABLES Final Result Performing Organization Address [facility] Co de Phone Number [facility] [address] [place] [address]. [address] * POC Lactate (10/26/2024 12:39 AM EDT) POC Lactate 1.39 0.50 - 2.20 mmol/L 10/26/2024 1:38 AM EDT [facility] Blood, Arterial 10/26/2024 1 2:39 AM EDT 10/26/2024 1:38 AM EDT us Semaj Mcnair III, MD POINT OF CARE TEST ORDERABLES Final Result Performing Organization Address City/[facility] Co de Phone Number [facility] [address] [place] [address] * (ABNORMAL) POC Glucose (10/26/2024 12:39 AM EDT) Pathologist [facility] [place] POC Glucose, Arterial 116(H) 70 - 100 mg/dL 10/26/2024 1:38 AM EDT [facility] Blood, Arterial 10/26/2024 1 2:39 AM EDT 10/26/2024 1:38 AM EDT Semaj Mcnair III, MD POINT OF CARE TEST ORDERABLES Final Result Performing Organization Address [facility] Co de Phone Number [address] * (ABNORMAL) POC Ionized Calcium (10/26/2024 12:39 AM EDT) Pathologist [facility] [place] POC Ionized Calcium 4.30(L) 4.50 - 5.30 mg/dL 10/26/2024 1:38 AM EDT [facility] Blood, Arterial 10/26/2024 1 2:39 AM EDT 10/26/2024 1:38 AM EDT us Semaj Mcnair III, MD POINT OF CARE TEST ORDERABLES Final Result Performing Organization Address [facility] Co de Phone [facility] [facility] [address] [place] [address] * (ABNORMAL) POC Potassium (10/26/2024 12:39 AM EDT) POC Potassium 2.4(LL) 3.5 - 5.3 mmol/L 10/26/2024 1:38 AM EDT [facility] Blood, Arterial 10/26/2024 1 2:39 AM EDT 10/26/2024 1:38 AM EDT us Semaj Mcnair III, MD POINT OF CARE TEST ORDERABLES Final Result Performing Organization Address City/[facility]/ZIP Co de Phone Number [facility] [address] [place] [address]. [address] * POC Sodium (10/26/2024 12:39 AM EDT) Pathologist [facility] [place] POC Sodium 136 136 - 146 mmol/L 10/26/2024 1:38 AM EDT [facility] Blood, Arterial 10/26/2024 1 2:39 AM EDT 10/26/2024 1:38 AM EDT us Semaj Mcnair III, MD POINT OF CARE TEST ORDERABLES Final Result Performing Organization Address [facility] Co de Phone Number [facility] [address] [place] [address]. [address] * (ABNORMAL) POC TCO2 (10/26/2024 12:39 AM EDT) POC TCO2, Arterial 21(L) 23 - 27 mmol/L 10/26/2024 1:38 AM EDT [facility] Blood, Arterial 10/26/2024 1 2:39 AM EDT 10/26/2024 1:38 AM EDT us Semaj Mcnair III, MD POINT OF CARE TEST ORDERABLES Final Result Performing Organization Address [facility] Co de Phone Number [facility] [address] [place] [address]. [address] * POC O2 SAT (10/26/2024 12:39 AM EDT) POC O2 Saturation, Arterial 98 95 - 98 % 10/26/2024 1:38 AM EDT [facility] Blood, Arterial 10/26/2024 1 2:39 AM EDT 10/26/2024 1:38 AM EDT us Semaj Mcnair III, MD POINT OF CARE TEST ORDERABLES Final Result Performing Organization Address City/[facility] Co de Phone Number [facility] [address] [place] [address]. [address] * (ABNORMAL) POC Base Excess (10/26/2024 12:39 AM EDT) POC Base Excess, Arterial -7(L) -2 - 3 mmol/L 10/26/2024 1:38 AM EDT [facility] Blood, Arterial 10/26/2024 1 2:39 AM EDT 10/26/2024 1:38 AM EDT us Semaj Mcnair III, MD POINT OF CARE TEST ORDERABLES Final Result Performing Organization Address [facility] Co de Phone Number [facility] [address] [place] [address]. [address] * (ABNORMAL) POC HCO3 (10/26/2024 12:39 AM EDT) POC HCO3, Arterial 20(L) 22 - 26 mmol/L 10/26/2024 1:38 AM EDT [facility] Blood, Arterial 10/26/2024 1 2:39 AM EDT 10/26/2024 1:38 AM EDT us Semaj Mcnair III, MD POINT OF CARE TEST ORDERABLES Final Result Performing Organization Address [facility] de Phone Number [facility] [address] [place] [address]. [address] * (ABNORMAL) POC PO2 (10/26/2024 12:39 AM EDT) POC pO2, Arterial 117(H) 80 - 100 mm Hg 10/26/2024 1:38 AM EDT [facility] Blood, Arterial 10/26/2024 1 2:39 AM EDT 10/26/2024 1:38 AM EDT Semaj Mcnair III, MD POINT OF CARE TEST ORDERABLES Final Result Performing Organization Address City/[facility] Co de Phone Number [facility] [address] [facility]. [address] * (ABNORMAL) POC PCO2 (10/26/2024 12:39 AM EDT) POC pCO2, Arterial 46(H) 35 - 45 mm Hg 10/26/2024 1:38 AM EDT [facility] Blood, Arterial 10/26/2024 1 2:39 AM EDT 10/26/2024 1:38 AM EDT Semaj Mcnair III, MD POINT OF CARE TEST ORDERABLES Final Result Performing Organization Address [facility] Co de Phone Number [facility] [address] [facility]. [address] * (ABNORMAL) POC pH (10/26/2024 12:39 AM EDT) POC pH, Arterial 7.24(L) 7.35 - 7.45 10/26/2024 1:38 AM EDT [facility] Blood, Arterial 10/26/2024 1 2:39 AM EDT 10/26/2024 1:38 AM EDT Semaj Mcnair III, MD POINT OF CARE TEST ORDERABLES Final Result Performing Organization Address City/[facility] Co de Phone Number [facility] [address] [facility]. [address] * Transfuse Platelets (10/26/2024 12:37 AM [...] AM EDT) Gram Stain Result Cytospin Results: [facility] Gram Stain Result Polymorphonuclear Leukocytes Seen; [facility] Gram Stain Result No Organisms Seen; [facility] Culture Result No Growth After 3 Days [facility] Surgical Swab ABDOMEN / Unknown 12:03 AM EDT Comment:2.) Ascites Anaerobhic culture Fungus culture Routine culture plus stain Narrative [facility] - 10/28/2024 9:38 PM EDT 2.) Ascites Anaerobhic culture Fungus culture Routine culture plus stain 2.) Ascites Semaj Mcnair III, MD MICROBIOLOGY - GENE RAL ORDERABLES Final Result [facility] [address] * Surgical Pathology Exam (10/26/2024 12:00 AM EDT) 10/26/2024 10/27/2024 Narrative [facility] - 10/26/2024 12:00 AM EDT CASE: [id number] PATIENT: BLAIR GILBERT Clinical History: Liver - kidney transplant Pre-Operative Diagnosis: Alcoholic cirrhosis of liver Post-Operative Diagnosis: Alcoholic cirrhosis of liver Specimen(s) Submitted: A. seneca-cay[place] liver CPT Code(s): 50871 X 1; 50026 X 5 Additional Information: FINAL DIAGNOSIS: A. 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 - Negative for neoplasm. - Increased hepatocellular iron deposition (3+; Modified Scheuer). Gall bladder: -Intramucosal and submucosal vascular congestion and hemorrhage. - Negative for dysplasia or malignancy. Gross Description: Received in formalin, labeled Blair Gilbert and seneca-cayuga liver , is a 2338-gram, hepatectomy specimen [...] discrete masses or other lesions are identified. Cafeteria Assistant sections are submitted in cassettes [id number] as follows: A1: Hilar margins, en face. [...] is located at [facility], [address] [place] [address], [place], [place], [facility], , CLIA ID: [id number] us Semaj Mcnair III, MD PATHOLOGY/CYTOLOGY ORDERABLES Final Result Performing Organization Address [facility]/ZIP Co de Phone Number [facility] * [...] 0.8 - 1.4 10/27/2024 6:51 AM EDT [facility] Comment: Test results may vary [...] ORDERABLES Final Result Performing Organization Address [facility]/ZIP Co de Phone Number [facility] [address] [place] [address] * POC Sample Type (10/25/2024 11:40 PM EDT) POC Sample Type Arterial 10/25/2024 11:57 PM EDT [facility] Blood, Arterial 10/25/2024 1 1:40 PM EDT 10/25/2024 11:57 PM EDT us Semaj Mcnair III, MD POINT OF CARE TEST ORDERABLES Final Result [facility] [address] [place] [address]. [address] * POC Anion Gap (10/25/2024 11:40 PM EDT) [facility] POC Anion Gap, Arterial 13 3 - 16 mmol/L 10/25/2024 11:57 PM EDT [facility] Blood, Arterial 10/25/2024 1 1:40 PM EDT 10/25/2024 11:57 PM EDT Semaj Mcnair III, MD POINT OF CARE TEST ORDERABLES Final Result Performing Organization Address City/[facility]/ZIP Co de Phone Number [facility] [address] [place] [address]. [address] * POC Chloride (10/25/2024 11:40 PM EDT) [facility] POC Chloride 102 98 - 110 mmol/L 10/25/2024 11:57 PM EDT [facility] Blood, Arterial 10/25/2024 1 1:40 PM EDT 10/25/2024 11:57 PM EDT us Semaj Mcnair III, MD POINT OF CARE TEST ORDERABLES Final Result [facility] [address] * (ABNORMAL) POC Hemoglobin (10/25/2024 11:40 PM EDT) Pathologist [facility] [place] POC Hemoglobin 6.6(L) 14.0 - 18.0 g/dL 10/25/2024 11:57 PM EDT [facility] Blood, Arterial 10/25/2024 1 1:40 PM EDT 10/25/2024 11:57 PM EDT us Semaj Mcnair III, MD POINT OF CARE TEST ORDERABLES Final Result Performing Organization Address City/[facility]/ZIP Co de Phone Number [facility] [address]. [address] * (ABNORMAL) POC hematocrit (10/25/2024 11:40 PM EDT) POC Hematocrit 19.0(L) 40 - 52 % 10/25/2024 11:57 PM EDT [facility] Blood, Arterial 10/25/2024 1 1:40 PM EDT 10/25/2024 11:57 PM EDT us Semaj Mcnair III, MD POINT OF CARE TEST ORDERABLES Final Result Performing Organization Address [facility] Co de Phone Number [facility] [address] [facility]. [address] * POC Lactate (10/25/2024 11:40 PM EDT) POC Lactate 1.36 0.50 - 2.20 mmol/L 10/25/2024 11:57 PM EDT [facility] Blood, Arterial 10/25/2024 1 1:40 PM EDT 10/25/2024 11:57 PM EDT us Semaj Mcnair III, MD POINT OF CARE TEST ORDERABLES Final Result Performing Organization Address City/[facility] Co de Phone Number [facility] [address] [facility]. [address] * (ABNORMAL) POC Glucose (10/25/2024 11:40 PM EDT) POC Glucose, Arterial 101(H) 70 - 100 mg/dL 10/25/2024 11:57 PM EDT [facility] Blood, Arterial 10/25/2024 1 1:40 PM EDT 10/25/2024 11:57 PM EDT us Semaj Mcnair III, MD POINT OF CARE TEST ORDERABLES Final Result [facility] [address] [place] [address]. [address] * POC Ionized Calcium (10/25/2024 11:40 PM EDT) POC Ionized Calcium 4.50 4.50 - 5.30 mg/dL 10/25/2024 11:57 PM EDT [facility] Blood, Arterial 10/25/2024 1 1:40 PM EDT 10/25/2024 11:57 PM EDT Semaj Mcnair III, MD POINT OF CARE TEST ORDERABLES Final Result Performing Organization Address [facility]/ZIP Co de Phone Number [facility] [address] [place] [address]. [address] * (ABNORMAL) POC Potassium (10/25/2024 11:40 PM EDT) Pathologist [facility] POC Potassium 1.9(LL) 3.5 - 5.3 mmol/L 10/25/2024 11:57 PM EDT [facility] Blood, Arterial 10/25/2024 1 1:40 PM EDT 10/25/2024 11:57 PM EDT us Semaj Mcnair III, MD POINT OF CARE TEST ORDERABLES Final Result [facility] [address] [place] [address]. [address] * (ABNORMAL) POC Sodium (10/25/2024 11:40 PM EDT) POC Sodium 135(L) 136 - 146 mmol/L 10/25/2024 11:57 PM EDT [facility] Blood, Arterial 10/25/2024 1 1:40 PM EDT 10/25/2024 11:57 PM EDT us Semaj Mcnair III, MD POINT OF CARE TEST ORDERABLES Final Result [facility] [address] * (ABNORMAL) POC TCO2 (10/25/2024 11:40 PM EDT) POC TCO2, Arterial 21(L) 23 - 27 mmol/L 10/25/2024 11:57 PM EDT [facility] Blood, Arterial 10/25/2024 1 1:40 PM EDT 10/25/2024 11:57 PM EDT us Semaj Mcnair III, MD POINT OF CARE TEST ORDERABLES Final Result Performing Organization Address [facility]/ZIP Co de Phone Number [facility] [address] [facility]. [address] * POC O2 SAT (10/25/2024 11:40 PM EDT) POC O2 Saturation, Arterial 98 95 - 98 % 10/25/2024 11:57 PM EDT [facility] Blood, Arterial 10/25/2024 1 1:40 PM EDT 10/25/2024 11:57 PM EDT us Semaj Mcnair III, MD POINT OF CARE TEST ORDERABLES Final Result [facility] [address] [facility]. [address] * (ABNORMAL) POC Base Excess (10/25/2024 11:40 PM EDT) POC Base Excess, Arterial -6(L) -2 - 3 mmol/L 10/25/2024 11:57 PM EDT [facility] Blood, Arterial 10/25/2024 1 1:40 PM EDT 10/25/2024 11:57 PM EDT us Semaj Mcnair III, MD POINT OF CARE TEST ORDERABLES Final Result Performing Organization Address City/[facility]/ZIP Co de Phone Number [facility] [address] [facility]. [address] * (ABNORMAL) POC HCO3 (10/25/2024 11:40 PM EDT) POC HCO3, Arterial 20(L) 22 - 26 mmol/L 10/25/2024 11:57 PM EDT [facility] Blood, Arterial 10/25/2024 1 1:40 PM EDT 10/25/2024 11:57 PM EDT us Semaj Mcnair III, MD POINT OF CARE TEST ORDERABLES Final Result Performing Organization Address [facility] Co de Phone Number [facility] [address] * (ABNORMAL) POC PO2 (10/25/2024 11:40 PM EDT) POC pO2, Arterial 107(H) 80 - 100 mm Hg 10/25/2024 11:57 PM EDT [facility] Blood, Arterial 10/25/2024 1 1:40 PM EDT 10/25/2024 11:57 PM EDT us Semaj Mcnair III, MD POINT OF CARE TEST ORDERABLES Final Result Performing Organization Address City/[facility]/ZIP Co de Phone Number [facility] [address] [facility]. [address] * POC PCO2 (10/25/2024 11:40 PM EDT) POC pCO2, Arterial 41 35 - 45 mm Hg 10/25/2024 11:57 PM EDT [facility] Blood, Arterial 10/25/2024 1 1:40 PM EDT 10/25/2024 11:57 PM EDT us Semaj Mcnair III, MD POINT OF CARE TEST ORDERABLES Final Result Performing Organization Address [facility] Co de Phone Number [facility] [address] * (ABNORMAL) POC pH (10/25/2024 11:40 PM EDT) POC pH, Arterial 7.29(L) 7.35 - 7.45 10/25/2024 11:57 PM EDT [facility] Blood, Arterial 10/25/2024 1 1:40 PM EDT 10/25/2024 11:57 PM EDT us Semaj Mcnair III, MD POINT OF CARE TEST ORDERABLES Final Result Performing Organization Address [facility] Co de Phone Number [facility] [address] [facility]. [address] * Urine culture (10/25/2024 11:08 PM EDT) Culture Result <1,000 cfu/mL [facility] Culture Result Skin/Urogeni rony Mckayla. No Further Workup. [facility] Newly Placed Berkowitz Urine URINE SPECIMEN / Unknown 10/25/2024 11:08 PM EDT Comment:urine culture Narrative [facility] - 10/28/2024 9:59 AM EDT urine culture urine culture us Semaj Mcnair III, MD MICROBIOLOGY - GENE RAL ORDERABLES Final Result Performing Organization Address [facility] Co de Phone Number [facility] [address]. [address] * X-ray Portable Chest (10/25/2024 10:19 [...] - 2.2 mmol/L 10/25/2024 10:39 PM EDT [facility] Plasma 10/25/2024 10:1 7 PM EDT 10/25/2024 10:17 PM EDT Ben Blake MD LAB BLOOD ORDERABLES Final Re sult [facility] [address] * (ABNORMAL) Ferritin (10/25/2024 10:17 PM EDT) Ferritin 623.2(H) 23.9 - 336.2 ng/mL 10/25/2024 11:02 PM EDT [facility] Serum 10/25/2024 10:1 7 PM EDT 10/25/2024 10:17 PM EDT Result [facility] Leandra Og MD LAB BLOOD ORDERABLES F inal Result Performing Organization Address [facility]/ZIP Co de Phone Number [facility] [address] * Iron Studies (Iron + TIBC) (10/25/2024 10:17 PM EDT) Iron 128 50 - 212 ug/dL 10/25/2024 10:44 PM EDT [facility] % Iron Saturation SEE COMMENT 15.0 - 55.0 % 10/25/2024 10:44 PM EDT [facility] Comment:Unable to calculate result because contributing result outside reportable range.. TIBC SEE COMMENT 261 - 462 ug/dL 10/25/2024 10:44 PM EDT [facility] Comment:Unable to calculate result because contributing result outside reportable range.. Serum 10/25/2024 10:1 7 PM EDT 10/25/2024 10:17 PM EDT Leandra Og MD LAB BLOOD ORDERABLES F inal Result [facility] [address] * PTH (10/25/2024 10:17 PM EDT) PTH 36.0 12.0 - 88.0 pg/mL 10/25/2024 11:01 PM EDT [facility] Serum 10/25/2024 10:1 7 PM EDT 10/25/2024 10:17 PM EDT Leandra Og MD LAB BLOOD ORDERABLES F inal Result [facility] [address] [facility]. [address] * HIV 1+2 Antibody/Antigen with Reflex (10/25/2024 10:17 PM EDT) HIV 1+2 AB/AGN Nonreactive Nonreactive 10/25/2024 11:03 PM EDT [facility] Serum 10/25/2024 10:1 7 PM EDT 10/25/2024 10:16 PM EDT Narrative [facility] - 10/25/2024 11:03 PM EDT \HIVRNR Leandra Og MD LAB BLOOD ORDERABLES F inal Result [facility] [address] [facility]. [address] * Hepatitis B Core Antibody (10/25/2024 10:17 PM EDT) Hep B Core Total Ab Nonreactive Nonreactive 10/25/2024 11:07 PM EDT [facility] Comment:Health Department no tified in accordance with reportable infectious disease guidelines. Serum 10/25/2024 10:1 7 PM EDT 10/25/2024 10:17 PM EDT Narrative [facility] - 10/25/2024 11:07 PM EDT A nonreactive final interpretation indicates that anti-HBc antibodies were not detected in the sample; it is possible that the individual is not infected with HBV. us Leandra Og MD LAB BLOOD ORDERABLES F inal Result Performing Organization Address City/[facility]/ZIP Co de Phone Number [facility] [address] [facility]. [address] * Hepatitis C Antibody (10/25/2024 10:17 PM EDT) Pathologist [facility] HCV Ab Nonreactive Nonreactive 10/25/2024 11:16 PM EDT [facility] Comment:Health Department no tified in accordance with reportable infectious disease guidelines. Serum 10/25/2024 10:1 7 PM EDT 10/25/2024 10:17 PM EDT Narrative [facility] - 10/25/2024 11:16 PM EDT Antibodies to HCV not detected; does not exclude the possibility of exposure to HCV. us Leandra Og MD LAB BLOOD ORDERABLES F inal Result Performing Organization Address [facility] Co de Phone Number [facility] [address] [facility]. [address] * (ABNORMAL) Hepatitis B Surface Antibody, Quantitati (10/25/2024 10:17 PM EDT) [facility] HBSAB NUMBER 10.70(H) 0.00 - 9.99 mIU/mL 10/25/2024 11:52 PM EDT [facility] Hep B S Ab Equivocal (A) Nonreactive 10/25/2024 11:52 PM EDT [facility] Serum 10/25/2024 10:1 7 PM EDT 10/25/2024 10:17 PM EDT us Leandra Og MD LAB BLOOD ORDERABLES F inal Result Performing Organization Address [facility] Co de Phone Number [facility] [address] [facility]. [address] * Hepatitis B surface antigen (10/25/2024 10:17 PM EDT) Pathologist [facility] Hep B Surface Ag Nonreactive Nonreactive 10/25/2024 11:12 PM EDT [facility] Comment:Health Department no tified in accordance with reportable infectious disease guidelines. Serum 10/25/2024 10:1 7 PM EDT 10/25/2024 10:17 PM EDT Narrative [facility] - 10/25/2024 11:12 PM EDT Specimen is considered negative for HBsAg. Leandra Og MD LAB BLOOD ORDERABLES F inal Result Performing Organization Address City/[facility] Co de Phone Number [facility] [address] [facility]. [address] * Hepatitis A Antibody Total (10/25/2024 10:17 PM EDT) Anti-HAV Total (IgG + IgM) Nonreactive 10/25/2024 11:13 PM EDT [facility] Serum 10/25/2024 10:1 7 PM EDT 10/25/2024 10:17 PM EDT Narrative [facility] - 10/25/2024 11:13 PM EDT HAV antibodies not detected us Leandra Og MD LAB BLOOD ORDERABLES F inal Result Performing Organization Address [facility] Co de Phone Number [facility] [address] [facility] * (ABNORMAL) Hepatic Function Panel (10/25/2024 10:17 PM EDT) Total Bilirubin 9.1(H) 0.0 - 1.5 mg/dL 10/25/2024 10:47 PM EDT [facility] Bilirubin, Direct 4.58(H) 0.00 - 0.40 mg/dL 10/25/2024 10:47 PM EDT [facility] AST 51(H) 13 - 39 U/L 10/25/2024 10:47 PM EDT [facility] ALT 23 7 - 52 U/L 10/25/2024 10:47 PM EDT [facility] Alkaline Phosphatase 144(H) 36 - 125 U/L 10/25/2024 10:47 PM EDT [facility] Total Protein 5.5(L) 6.4 - 8.9 g/dL 10/25/2024 10:47 PM EDT [facility] Albumin 3.5 3.5 - 5.7 g/dL 10/25/2024 10:47 PM EDT [facility] Bilirubin, Indirect 4.52(H) 0.00 - 1.10 mg/dL 10/25/2024 10:47 PM EDT [facility] Plasma 10/25/2024 10:1 7 PM EDT 10/25/2024 10:17 PM EDT us Leandra Og MD LAB BLOOD ORDERABLES F inal Result [facility] [address] [facility] [place] [address], [facility] * (ABNORMAL) Renal Function Panel w/EGFR (10/25/2024 10:17 PM EDT) Sodium 137 133 - 146 mmol/L 10/25/2024 10:47 PM EDT [facility] Potassium 2.1(LL) 3.5 - 5.3 mmol/L 10/25/2024 10:47 PM EDT [facility] Comment:Critical Result K:2. 1 Called to and read back by: ALICIA CARCAMO RN at: 10/25/2024 22:47:45 by:NANCY Chloride 100 98 - 110 mmol/L 10/25/2024 10:47 PM EDT [facility] CO2 20(L) 21 - 33 mmol/L 10/25/2024 10:47 PM EDT [facility] Anion Gap 17(H) 3 - 16 mmol/L 10/25/2024 10:47 PM EDT [facility] BUN 74(H) 7 - 25 mg/dL 10/25/2024 10:47 PM EDT [facility] Creatinine 3.87(H) 0.60 - 1.30 mg/dL 10/25/2024 10:47 PM EDT [facility] Glucose 114(H) 70 - 100 mg/dL 10/25/2024 10:47 PM EDT [facility] Calcium 9.3 8.6 - 10.3 mg/dL 10/25/2024 10:47 PM EDT [facility] Phosphorus 5.9(H) 2.1 - 4.7 mg/dL 10/25/2024 10:47 PM EDT [facility] Albumin 3.5 3.5 - 5.7 g/dL 10/25/2024 10:47 PM EDT [facility] Osmolality, Calculated 307(H) 278 - 305 mOsm/kg 10/25/2024 10:47 PM EDT [facility] EGFR 19 10/25/2024 10:47 PM EDT [facility] Comment:As of 2021, the estimated [...] MD LAB BLOOD ORDERABLES F inal Result [facility] [address] * (ABNORMAL) APTT, NO ANTICOAGULANT (10/25/2024 10:17 PM EDT) aPTT 41.7(H) 25.5 - 35.0 seconds 10/25/2024 10:36 PM EDT [facility] Plasma 10/25/2024 10:1 7 PM EDT 10/25/2024 10:17 PM EDT us Leandra Og MD LAB BLOOD ORDERABLES F inal Result [facility] [address] * (ABNORMAL) Protime-INR (10/25/2024 10:17 PM EDT) Protime 21.7(H) 12.1 - 15.1 seconds 10/25/2024 10:35 PM EDT [facility] INR 1.8(H) 0.9 - 1.1 10/25/2024 10:35 PM EDT [facility] Comment: RECOMMENDED THERAPEUTIC RANGES USING INR : Stable oral anticoagulant therapy: 2.0 - 3.0 Mechanical prosthetic heart valve: 2.5 - 3.5 Recurrent acute myocardial infarction: 2.5 - 3.5 Plasma 10/25/2024 10:1 7 PM EDT 10/25/2024 10:17 PM EDT Leandra Og MD LAB BLOOD ORDERABLES F inal Result Performing Organization Address [facility] Co de Phone Number [facility] [address] * (ABNORMAL) Differential (10/25/2024 10:17 PM EDT) Differential Comments See Note 10/25/2024 10:54 PM EDT [facility] Comment: _Platelets Appear Decreased _Platelet Morphology Normal Scan Result PERFORMED 10/25/2024 10:54 PM EDT [facility] Neutrophils Relative 79.8 40.0 - 80.0 % 10/25/2024 10:54 PM EDT [facility] Lymphocytes Relative 9.6(L) 15.0 - 45.0 % 10/25/2024 10:54 PM EDT [facility] Monocytes Relative 8.9 0.0 - 12.0 % 10/25/2024 10:54 PM EDT [facility] Eosinophils Relative 1.3 0.0 - 8.0 % 10/25/2024 10:54 PM EDT [facility] Basophils Relative 0.4 0.0 - 1.0 % 10/25/2024 10:54 PM EDT [facility] nRBC 0 0 - 0 /100 WBC 10/25/2024 10:54 PM EDT [facility] Neutrophils Absolute 4,948 1,520 - 8,640 /uL 10/25/2024 10:54 PM EDT [facility] [facility] Lymphocytes Absolute 595 570 - 4,860 /uL 10/25/2024 10:54 PM EDT [facility] Monocytes Absolute 552 0 - 1,296 /uL 10/25/2024 10:54 PM EDT [facility] Eosinophils Absolute 81 0 - 864 /uL 10/25/2024 10:54 PM EDT [facility] Basophils Absolute 25 0 - 108 /uL 10/25/2024 10:54 PM EDT [facility] PLT Morphology Platelet morphology appears normal 10/25/2024 10:54 PM EDT [facility] Whole Blood 10/25/2024 10:1 7 PM EDT 10/25/2024 10:17 PM EDT us Leandra Og MD LAB BLOOD ORDERABLES F inal Result [facility] [address] * (ABNORMAL) CBC (10/25/2024 10:17 PM EDT) WBC 6.2 3.8 - 10.8 10E3/uL 10/25/2024 10:54 PM EDT [facility] RBC 2.40(L) 4.20 - 5.80 10E6/uL 10/25/2024 10:54 PM EDT [facility] Hemoglobin 8.3(L) 13.2 - 17.1 g/dL 10/25/2024 10:54 PM EDT [facility] Hematocrit 23.7(L) 38.5 - 50.0 % 10/25/2024 10:54 PM EDT [facility] MCV 98.9 80.0 - 100.0 fL 10/25/2024 10:54 PM EDT [facility] MCH 34.6(H) 27.0 - 33.0 pg 10/25/2024 10:54 PM EDT [facility] MCHC 35.0 32.0 - 36.0 g/dL 10/25/2024 10:54 PM EDT [facility] RDW 17.8(H) 11.0 - 15.0 % 10/25/2024 10:54 PM EDT [facility] Platelets 56(L) 140 - 400 10E3/uL 10/25/2024 10:54 PM EDT [facility] Comment: Specimen checked for clots. None detected. Slide Reviewed for PLT Clumps. None Seen. Platelet Estimate Decreased 10/25/2024 10:54 PM EDT [facility] MPV 8.1 7.5 - 11.5 fL 10/25/2024 10:54 PM EDT [facility] Whole Blood 10/25/2024 10:1 7 PM EDT 10/25/2024 10:17 PM EDT Narrative [facility] - 10/25/2024 10:54 PM EDT Peripheral blood smear was scanned per review criteria approved by the [facility] sales. us Leandra Og MD LAB BLOOD ORDERABLES F inal Result [facility] [address] [id number], [facility] * Donor Specific Antibody (DSA) (10/25/2024 10:00 PM EDT) AntiDonor Antibodies The request and specimen(s) for this test have been received and transported to the [facility] [place] at [address] [place] [address]. The [facility] [place] [facility] will report results directly to the client. 10/25/2024 10:20 PM EDT [facility] Comment:Testing performed by [facility], [facility], [address] [place] [address]. The [facility] report has been forwarded to the appropriate ordering location. Please refer to this report for patient results. Serum 10/25/2024 10:0 0 PM EDT 10/25/2024 10:20 PM EDT us Leandra Og MD LAB BLOOD ORDERABLES F inal Result [facility] [address] * (ABNORMAL) Venous Blood Gas, Line/Syringe (10/25/2024 10:00 PM EDT) PH-Line Draw 7.38 7.32 - 7.42 10/25/2024 10:08 PM EDT [facility] PCO2-Line Draw 33(L) 41 - 51 mm Hg 10/25/2024 10:08 PM EDT [facility] PO2-Line Draw 33 25 - 40 mm Hg 10/25/2024 10:08 PM EDT [facility] HCO3-Line Draw 20(L) 24 - 28 mmol/L 10/25/2024 10:08 PM EDT [facility] CO2 Content-Line Draw 21(L) 25 - 29 mmol/L 10/25/2024 10:08 PM EDT [facility] Base Excess-Line Draw -5.0(L) -2.0 - 3.0 mmol/L 10/25/2024 10:08 PM EDT [facility] %HBO2-Line Draw 53.8 40.0 - 70.0 % 10/25/2024 10:08 PM EDT [facility] Carboxyhgb-Ludivina e Draw 1.9 % 10/25/2024 10:08 PM EDT [facility] Comment: CARBOXYHEMOGLOBIN (CO) REFERENCE RANGES: Non-Smokers: <2 % Smokers: <8 % TOXIC: >20 % Methemoglobin- Line Draw 0.2 0.0 - 1.5 % 10/25/2024 10:08 PM EDT [facility] Reduced Hemoglobin-Ludivina e Draw 44.1(H) 0.0 - 5.0 % 10/25/2024 10:08 PM EDT [facility] Venous, Line Draw 10/25/2024 10:00 PM EDT 10/25/2024 10:04 PM EDT Leandra Og MD LAB BLOOD ORDERABLES F inal Result [facility] [address] [facility]. [address] * (ABNORMAL) POC Glucose Monitoring Device (10/25/2024 9:56 PM EDT) [facility] POC Glucose Monitoring Device 103(H) 70 - 100 mg/dL 10/25/2024 9:58 PM EDT [facility] Blood 10/25/2024 9:56 PM EDT 10/25/2024 9:57 PM EDT Semaj Mcnair III, MD POINT OF CARE TEST ORDERABLES Final Result Performing Organization Address [facility] Co de Phone Number [facility] [address] [facility]. [address] * ECG 12 lead (MUSE) (10/25/2024 9:34 PM EDT) 10/25/2024 9:34 PM EDT Narrative MUSE - 10/27/2024 10:08 AM EDT Ventricular Rate: 97 BPM Atrial Rate: 86 BPM QRS Duration: 106 ms QT: 532 ms QTc: 675 ms P [place]: 38 degrees R [place]: -29 degrees T [place]: 32 degrees Diagnosis Line: Critical Test Result: Long QTc , AV Block ^ SINUS RHYTHM WITH PREMATURE VENTRICULAR COMPLEXES ^ PROLONGED QT ^ NONSPECIFIC ST AND T WAVE CHANGES ^ ABNORMAL ECG ^ ^ Confirmed by MD HA, [facility] ([id number]) on 10/27/2024 10:08:26 AM us Leandra Og MD ECG ORDERABLES Final Result Performing Organization Address [facility] Co de Phone Number MUSE * Hepatitis C RNA, Quant Reflex to Genotyp (10/25/2024 8:18 PM EDT) [facility] Units Not Detected IU/mL 10/27/2024 11:03 AM EDT [facility] Comment:Test methodology for HCV RNA quantification is an FDA-approved nucleic acid amplification assay. The Lower Limit of Quantitation (LLOQ) is 15 IU/mL. The linear range of the assay is 15-100,000,000 IU/mL. The Limit of Detection (LoD) is 12.0 IU/mL for EDTA plasma. The reference range is Not Detected. IU log10 See Note log 10 IU/mL 10/27/2024 11:03 AM EDT [facility] Comment:HCV RNA not detected . Plasma 10/25/2024 8:18 PM EDT 10/25/2024 10:27 PM EDT us Leandra Og MD LAB BLOOD ORDERABLES F inal Result [facility] [address] [place] [address], [facility] * Urinalysis w/Rfl to Microscopic (10/25/2024 8:18 PM EDT) Color, UA Yellow Yellow,Straw 10/25/2024 10:38 PM EDT [facility] Clarity, UA Clear Clear 10/25/2024 10:38 PM EDT [facility] Specific [place], UA 1.010 1.005 - 1.035 10/25/2024 10:38 PM EDT [facility] pH, UA 6.0 5.0 - 8.0 10/25/2024 10:38 PM EDT [facility] Protein, UA Negative Negative mg/dL 10/25/2024 10:38 PM EDT [facility] Glucose, UA Negative Negative mg/dL 10/25/2024 10:38 PM EDT [facility] Ketones, UA Negative Negative mg/dL 10/25/2024 10:38 PM EDT [facility] Bilirubin, UA Negative Negative 10/25/2024 10:38 PM EDT [facility] Blood, UA Negative Negative 10/25/2024 10:38 PM EDT [facility] Nitrite, UA Negative Negative 10/25/2024 10:38 PM EDT [facility] Urobilinogen, UA <2.0 0.2 - 1.9 mg/dL 10/25/2024 10:38 PM EDT [facility] Leukocyte Esterase, UA Negative Negative 10/25/2024 10:38 PM EDT [facility] Urine 10/25/2024 8:18 PM EDT 10/25/2024 10:35 PM EDT [facility] - 10/25/2024 10:38 PM EDT Microscopic testing is not performed when the dipstick is negative for blood, leukocyte, protein and nitrite. Leandra Og MD URINE ORDERABLES Final Result [facility] [address] [place] [address], [facility] * Toxoplasma gondii antibody, IgG (10/25/2024 8:18 PM EDT) Pathologist [facility] [place] Toxoplasma Gondii IgG <3.0 0.0 - 7.1 IU/mL 10/27/2024 7:55 AM EDT [facility] Comment: Negative <7.2 Equivocal 7.2 - 8.7 Positive >8.7 Serum 10/25/2024 8:18 PM EDT 10/27/2024 8:06 AM EDT [facility] - 10/27/2024 8:06 AM EDT PERFORMED AT: [facility] [address] [id number] SEC[employer] GRADE TEACHER: Bassam Khalil, PhD PHONE: [phone] Leandra Og MD LAB BLOOD ORDERABLES F inal Result [facility] [address] [place] [address], [facility] * Antibody Screen (10/25/2024 7:46 PM EDT) Pathologist [facility] Antibody Screen Negative 10/25/2024 10:41 PM EDT [facility] Blood 10/25/2024 7:46 PM EDT 10/25/2024 9:54 PM EDT [facility] - 10/25/2024 10:44 PM EDT Testing performed by [facility] Transfusion Service Ben Blake MD BLOOD BANK TEST ORDERABLES Fi nal Result [facility] [address] [facility]. [address] * ABO/Rh (10/25/2024 7:46 PM EDT) ABO Grouping O 10/25/2024 10:23 PM EDT [facility] Rh Type Positive 10/25/2024 10:23 PM EDT [facility] Blood 10/25/2024 7:46 PM EDT 10/25/2024 9:54 PM EDT us Ben Blake MD BLOOD BANK TEST ORDERABLES Fi nal Result [facility] [address] * (ABNORMAL) TEG-Standard Global Hemostasis (Rapid TEG with Heparin Effect, Contains a Baseline TEG) (10/25/2024 7:46 PM EDT) Citrated Kaolin Reaction Time (TEGHEPARINASE) 8.4 4.6 - 9.1 minutes 10/25/2024 10:49 PM EDT [facility] Citrated Rapid Teg Maximum Amplitude (TEGHEPARINASE) <40.0(L) 52.0 - 70.0 mm 10/25/2024 10:49 PM EDT [facility] Citrated Functional Fibrinogen Maximum Amplitude (TEGHEPARINASE) 6.7(L) 15.0 - 32.0 mm 10/25/2024 10:49 PM EDT [facility] Citrated Kaolin W/Heparinase Reaction Time (TEGHEPARINASE) 8.1 4.3 - 8.3 minutes 10/25/2024 10:49 PM EDT [facility] Citrated Kaolin K-Time (TEGHEPARINASE) 2.5(A) 0.8 - 2.1 minutes 10/25/2024 10:49 PM EDT [facility] Citrated Kaolin Angle (TEGHEPARINASE) 65.7(A) 63.0 - 78.0 degrees 10/25/2024 10:49 PM EDT [facility] Citrated Kaolin Maximum Amplitude (TEGHEPARINASE) <40.0(L) 52.0 - 69.0 mm 10/25/2024 10:49 PM EDT [facility] Citrated Functional Fibrinogen- Fibrinogen Level (TEGHEPARINASE) 159.5(L) 278.0 - 581.0 mg/dL 10/25/2024 10:49 PM EDT [facility] Whole Blood (Citrate) 10/25/2024 7:46 PM EDT 10/25/2024 10:15 PM EDT us Ben Blake MD LAB BLOOD ORDERABLES Final Re sult [facility] [address] [place] [address], [facility] documented in this encounter [...] Paulette Flannery RN)[phone] (Given - Provider: Yvonne Gael RN) 1141 (Given - Provider: Paulette Flannery [...] Gale RN) 0123 (Given - Provider: Yvonne Gale, ЮЛИЯ)[phone] (Given - Provider: Yvonne Gale RN)[phone] (Given [...] documented as of this encounter Care Teams Foreign Broadcast Specialist Relationship Specialty Start Date End Date Enedina Mcguire NP [address] [place] [address] PCP - General Internal Medicine 10/05/24 documented as of this encounter
--- OUTSIDE RECORDS SUMMARY | 2024-10-27 02:34 | XMS_ITS | Encounter Summary ---
Author Organization [facility] Address [facility] [place] [address] Care Team Providers Care Hair Worker Name Role Phone Enedina Mcguire NP Primary Care Provider [phone] Source Comments This information has been disclosed [...] release of HIV test results or diagnoses. [id number] Reason for Visit * Auth/Cert (Routine) Specialty Diagnoses / Procedures Referred By Shane t Referred To Contact Surgical Intensive Care Diagnoses Liver transplant recipient (CMS-HCC) cirrhosis and CKD Procedures LIVER-KIDNEY TRANSPLANT [facility] SICU [address] [place] [address] Phone: tel: Referral ID Status Reason Start Date Expiration Date Visits Re quested Visits Authorized [id number] 1 1 Encounter Details Date Type Department Care Team (Late st Contact Info) Description 10/27/2024 2:34 AM EDT Anesthesia Event [facility] PERIOP [address] [place] [address] Rocky Manning MD [address] [place] [phone] Con Gramajo MD [address] [place] [address] Anesthesia Record Procedure Summary Procedure Name Responsible Anesthesiologist Anesthesia Start Time Anesthesia Stop Time Donor Kidney Transplant, Back Bench Preparation Donor Kidney, Baseline Kidney transplant biopsy, Insertion of Indwelling Stent, Removal of Perihepatic packing Rocky Maninng MD 10/27/24 0234 10/27/24 0802 Events Date [...] sodium chloride 0.9% 1 00 mL IVPB (Sopo8Nqw) 1 g cefTRIAXone (ROCEPHIN) 2 g in sodium chl oride 0.9 % 100 mL Tlmc3Mko 2 g electrolyte-r (pH 7.4)(NORMOSOL-R pH 7.4 [...] Sounds Confirmed 10/26/24 0622 by Martha Phillip, BAG CHECKER 10/27/24 1310 by Chniedu Almeida, BAG CHECKER Drain 10/27/24; 0636; Bulb ; Abdomen; Inferior, [...] the past 12 months has th e exoro system, gas, oil, or water [employer] threatened to shut off services in your [...] in the past 12 m [facility], were you homeless or living [...] Blake MD - 10/26/2024 8:01 PM EDT [facility] DEPARTMENT OF ANESTHESIOLOGY PRE-PROCEDURAL EVALUATION Julien Anderson is a 39 y.o. year old male presenting for: Procedure(s): TRANSPLANT KIDNEY with bile duct reconstruction Surgeon: Harvey Domínguez III, MD Chief Complaint cirrhosis and CKD; Liver transplant recipient ([facility]) EtOH cirrhosis decompensated by esophageal varices, [...] dysrhythmias, angina, orthopnea. ECG reviewed. ROS comment: [facility] 10/14/24: IMPRESSIONS: - Patent coronary arteries [...] is no recent study available for direct zhmy-rk-frsj comparison. Stress echo 10/09/24: - Left ventricle: [...] at baseline or with provocation, shows no ehmmv-yj-ikod atrial level shunt. - Pulmonary arteries: Systolic [...] Physical Activity: Unknown (07/14/2024) Received from [facility] Exercise Vital Sign Days of Exercise per Week: Patient unable to answer Minutes of Exercise per Session: Not on file Stress: Patient Unable To Answer (07/14/2024) Received from [facility] [place] of Occupational Health - Occupational Stress Questionnaire Feeling of Stress : Patient unable to answer Social Connections: Patient Unable To Answer (07/14/2024) Received from [facility] Social Connection and Isolation Panel [NHANES] Frequency of Communication with Friends and Family: Patient unable to answer Frequency of Social Gatherings with Friends and Family: Patient unable to answer Attends [employer] Services: Patient unable to answer Active Member [...] at 9:00 PM naloxone (NARCAN) 4 mg/actuation [place] Apply 1 spray in one nostril if [...] Blood products not discussed. Plan discussed with MACHINE CAGE MAKER and attending. no trial extubation [1] Allergies Allergen Reactions Adhesive Itching and Rash Tegaderm adhesive on Ivs, pt states its tolerable Duloxetine Other (See Comments) Became Manic documented in this encounter Plan of Treatment Upcoming Encounters Date Type Department Care Team (Late st Contact Info) Description 12/05/2024 8:01 AM EDT Hospital Encounter [facility] ENDOSCOPY [address] [place] [phone] Chris Orosco MD [address] [place] [phone] 12/05/2024 8:01 AM EDT - 12/05/2024 8:31 AM EDT Surgery [facility] ENDOSCOPY [address] [place] [address] Chris Orosco MD [address] [place] [phone] EGD Scheduled Procedures Name Priority Associated Diagnoses Date/Ti me EGD Cirrhosis of liver with ascites, unspecified hepatic cirrhosis type (CMS-HCC) 12/05/2024 8:01 AM EDT documented as of this encounter Visit Diagnoses Diagnosis Cirrhosis of liver with ascites, unspecified hepatic cirrhosis type ([facility]) * Transfer of Care - Bryce [...] 0659 10/27/24 07 - 10/28/24 0659 Shift 2932-4833 1441-0577 2496-0793 24 Hour Total 9675-1734 9634-1313 5491-3516 24 Hour Total INTAKE I.V.(mL/kg) 1450.8(11.8) 999.1(8.2) [...] 1 x 1 x 3 x Albumin 6517 864 3788 Volume (Transfuse Cryoprecipitate Transfusion Rate: Per dept [...] in sodium chloride 0.9 % 100 mL Pypo4Tfb) 20 20 Volume (mL) (methylPREDNISolone sodium succinate (SOLU-medrol) 250 mg in sodium chloride 0.9 % 100 mL IVPB) 100 100 Volume (mL) (AMPicillin 1 g in sodium chloride 0.9% 100 mL IVPB (Mndk4Dmv)) 200.2 100 120 420.1 Volume (mL) (mycophenolate [...] 99.3 99.3 Shift Total(mL/kg) 3124.1(25.5) 4253.7(34.7) 6907(56.4) 86490.8(116.6) OUTPUT Urine(mL/kg/hr) 955(1) 505(0.5) 690(0.7) 2150(0.7) 360 360 Urine 315 315 360 360 Output (mL) (IUC (Berkowitz) Triple-lumen (3-Way) 18 Fr.) 955 192 770 6774 Emesis/NG output 250 600 850 Drainage Output (mL) (NG/OG Tube Orogastric) 250 600 850 Drains 1700 8636 653 4629 Output (mL) (Drain Bilary Abdomen Inferior;Right) 100 150 250 Output (mL) ([REMOVED] Drain 1 Abdomen Right;Superior) 800 994 642 6094 Output (mL) (Drain 2 Left;Superior) 800 603 61 1468 Blood 300 300 Est Blood Loss 300 [...] in sodium chloride 0.9% 100 mL IVPB (Ftvr5Eyc) 1 g, Intravenous, at 200 mL/hr, Every 6 hours scheduled (4 times per day), First dose on Sun10/26/24 at 0630, For 2 days, Dosage may need to be adjusted for renal dysfunction. Full dose is 1g IV q6h Use Oxrm9Nwj Adapter - Mix Thoroughly Before Administration New Bag 10/28/2024 1:58 AM EDT 1 g 200 mL/hr Rate/Dose Verify 10/27/2024 7:00 PM EDT 200 mL/ hr New Bag 10/27/2024 6:42 PM EDT 1 g 200 mL/hr angiotensin II (GIAPREZA) 0.005 mg/mL in sodium chloride 0.9 % 500 mL infusion Intravenous, at 0-58.8 mL/hr, Continuous, Starting on [place] 10/26/24 at 1300, Enter on pump as N O DRUG SELECTED Weaning: Once underlying shock sufficiently improved, defined as lcj-pgdegpdakpg-[place]-presso r requirement ? 0.2 mcg/kg/min (norepinephrine equivalent) [...] in sodium chloride 0.9 % 100 mL Bebj1Nfd Intravenous, Administer over 30 Minutes, Continuous - [...] paralyzed: Do not titrate - follow policy [id number]. Start infusion if unable to maintain goal [...] documented as of this encounter Care Teams Hair Worker Relationship Specialty Start Date End Date Enedina Mcguire NP [address] [place] [address] PCP - General Internal Medicine 10/05/24 documented as of this encounter
--- OUTSIDE RECORDS SUMMARY | 2024-11-04 08:40 | XMS_ITS | Encounter Summary ---
Author Organization [facility] Address [address] [place] [address] Care Team Providers Care Mix Maker Name Role Phone Enedina Mcguire NP Primary Care Provider + [phone] Maureen Pantoja RN Unavailable Unavail able Source [...] release of HIV test results or diagnoses. [id number] Reason for Visit * Reason Comments Liver Transplant Follow-up Encounter Details Date Type Department Care Team (Late st Contact Info) Description 11/04/2024 8:40 AM EDT Office Visit [facility] Liver Transplant at [place] [address] [facility] [address] [place] [address] Cosmo Pacheco MD [address] [place] [address] [address] [place] [address] Liver transplant recipient (CMS-HCC) (Primary [...] the past 12 months has th e [employer], [employer], oil, or water company threatened to shut [...] before next appointment. documented in this encounter Plan of Treatment Upcoming Encounters Date Type Department Care Team (Late st Contact Info) Description 12/05/2024 8:01 AM EDT Hospital Encounter [facility] ENDOSCOPY [address] [place] [id number] Chris Orosco MD [address] [place] [phone] 12/05/2024 8:01 AM EDT - 12/05/2024 8:31 AM EDT Surgery [facility] ENDOSCOPY [address] [place] [phone] Chris Orosco MD [address] [place] [phone] EGD Scheduled Procedures Name Priority Associated Diagnoses [...] as of this encounter Care Teams Mix Maker Relationship Specialty Start Date End Date Enedina Mcguire NP [address] [place] [address] PCP - General Internal Medicine 10/05/24 Maureen Pantoja, ЮЛИЯ Txp Post Coordinator Transplant Hepatology 10/28/24 documented as of this encounter
--- OUTSIDE RECORDS SUMMARY | 2024-11-04 10:10 | XMS_ITS | Encounter Summary ---
Author Organization [facility] Address [facility] [place] [address] Care Team Providers Care It Senior Software Engineer Java Name Role Phone Enedina Mcguire NP Primary Care Provider + [phone] Maureen Pantoja RN Unavailable Unavail able Source [...] release of HIV test results or diagnoses. [id number] Reason for Visit * Reason Comments Kidney Transplant Follow-up Encounter Details Date Type Department Care Team (Late st Contact Info) Description 11/04/2024 10:10 AM EDT Office Visit [facility] Liver Transplant at [facility] [address] [facility] [address] [place] [address] Leisa Juarez MD [facility] 2nd [place] [address] Kidney transplant recipient (Primary Dx); [...] the past 12 months has th e [employer], [employer], oil, or water [employer] threatened to shut off services in your [...] living in a alf (including now)? No 10/29/2024 Yearly Questionnaire Answer [...] packing; Surgeon: Harvey Domínguez III, MD; Location: [facility]; Service: Transplant; Laterality: N/A; Family History: No [...] To Answer (07/14/2024) Received from [facility] [place] [facility] - Occupational Stress Questionnaire [...] = 12 units lancets (ACCU-CHEK SOFTCLIX LANCETS) [facility] Use to test blood sugar up to [...] times a day. naloxone (NARCAN) 4 mg/actuation [place] Apply 1 spray in one nostril if [...] Results Component Value Date PTH 36.0 10/25/2024 [id number] 7.1 (L) 10/08/2024 Hemoglobin A1C: Lab Results [...] Encounter [facility] ENDOSCOPY [address] [place] [address] Chris Orosco MD [address] [place] [address] 12/05/2024 8:01 AM EDT - 12/05/2024 8:31 AM EDT Surgery [facility] ENDOSCOPY [address] [place] [id number] Chris Orosco MD [address] [place] [id number] EGD Pending Results Name Type Priority Associated Diagnoses Date /Time Post Kidney Transplant Urine Culture Microbiology Routine Kidney transplant recipient 11/04/2024 8:46 AM EDT Scheduled Orders Name Type Priority Associated Diagnoses Orde r Schedule Urinalysis w/Rfl to Microscopic Lab Routine Kidney transplant recipient weekly for 12 Occurrences starting 11/03/2024 until 11/03/2025, 1 completed Protein / creatinine ratio, urine Lab Routine Kidney transplant recipient weekly for 12 Occurrences starting 11/03/2024 until 11/03/2025, 1 completed Post Kidney Transplant Urine Culture Microbiology Routine Kidney transplant recipient weekly for 12 Occurrences starting 11/03/2024 until 11/03/2025, 1 completed Magnesium Lab Routine Kidney transplant recipient weekly for 12 Occurrences starting 11/03/2024 until 05/18/2025, 1 completed Enteric Pathogen Panel Lab Routine Diarrhea [...] liver with ascites, unspecified hepatic cirrhosis type ([facility]) 12/05/2024 8:01 AM EDT documented as of this encounter Results * (ABNORMAL) Magnesium (11/04/2024 8:46 AM EDT) Magnesium 1.0(L) 1.5 - 2.5 mg/dL 11/04/2024 10:06 AM EDT [facility] Plasma 11/04/2024 8:46 AM EDT 11/04/2024 9:32 AM EDT Yareli Zaragoza [facility] BLOOD ORDERABLES Denisse l Result Performing Organization Address [facility] Co de Phone Number [facility] [address] * Protein / creatinine ratio, urine (11/04/2024 8:46 AM EDT) Creatinine, Urine 37.30 mg/dL 11/04/2024 2:55 PM EDT [facility] Comment:Reference range not established for this test. Total Protein, Ur 42 mg/dL 11/04/2024 2:55 PM EDT [facility] Comment:Reference range not established for this test. Prot/Creat Ratio, Ur 1.13 ratio 11/04/2024 2:55 PM EDT [facility] Urine 11/04/2024 8:46 AM EDT 11/04/2024 9:32 AM EDT Yareli Zaragoza [facility] URINE ORDERABLES Final Re sult Performing Organization Address [facility] Co de Phone Number [facility] [address] * (ABNORMAL) Urinalysis w/Rfl to Microscopic (11/04/2024 8:46 AM EDT) Color, UA Straw Yellow,Straw 11/04/2024 10:07 AM EDT [facility] Clarity, UA Clear Clear 11/04/2024 10:07 AM EDT [facility] Specific [place], UA 1.012 1.005 - 1.035 11/04/2024 10:07 AM EDT [facility] pH, UA 6.5 5.0 - 8.0 11/04/2024 10:07 AM EDT [facility] Protein, UA Trace(A) Negative mg/dL 11/04/2024 10:07 AM EDT [facility] Glucose, UA Negative Negative mg/dL 11/04/2024 10:07 AM EDT [facility] Ketones, UA Negative Negative mg/dL 11/04/2024 10:07 AM EDT [facility] Bilirubin, UA Negative Negative 11/04/2024 10:07 AM EDT [facility] Blood, UA Large(A) Negative 11/04/2024 10:07 AM EDT [facility] Nitrite, UA Negative Negative 11/04/2024 10:07 AM EDT [facility] Urobilinogen, UA <2.0 0.2 - 1.9 mg/dL 11/04/2024 10:07 AM EDT [facility] Leukocyte Esterase, UA Negative Negative 11/04/2024 10:07 AM EDT [facility] RBC, UA >100(H) 0 - 3 /HPF 11/04/2024 10:07 AM EDT [facility] WBC, UA 2 0 - 5 /HPF 11/04/2024 10:07 AM T [facility] Bacteria, UA Rare(A) None Seen /HPF 11/04/2024 10:07 AM EDT [facility] Hyaline Casts, UA 3(H) 0 - 2 /LPF 11/04/2024 10:07 AM T [facility] Urine 11/04/2024 8:46 AM EDT 11/04/2024 9:33 AM EDT Yareli Zaragoza [facility] URINE ORDERABLES Final Re sult [facility] [address] [place] [address], [facility] documented in this [...] documented as of this encounter Care Teams It Senior Software Engineer Java Relationship Specialty Start Date End Date Enedina Mcguire NP [address] [place] [address] PCP - General Internal Medicine 10/05/24 Maureen Pantoja, RN Txp Post Coordinator Transplant Hepatology 10/28/24 documented as of this encounter
--- OUTSIDE RECORDS SUMMARY | 2024-11-06 08:29 | XMS_ITS | Encounter Summary ---
Author Organization Healthcare Address [address] [place] [address] Care Team Providers Care Music Box Mechanic Name Role Phone Jony Conde MD Primary Care Provider [phone] Lj Tapia DRY PRESS OPERATOR HELPER Unavailable [phone] Enedina Mcguire DRY PRESS OPERATOR HELPER Primary Care Provider + Nuria Fall RADIOGRAPHY TECHNICIAN Unavailable Unavaila ble Encounter Details Date Type Department Care Team (Late Contact Info) Description 07/04/2022 Orders Only External Location [address] [place] [address] Presley Montes De Oca MD [address] [id number] Social History Tobacco Use Types Packs/Day Years [...] 12/01/2024 2:20 PM EDT Office Visit Professional [facility] Nephrology, Bone & Mineral Metabolism [address] [facility], [address] [place] [address] Yovanny Curran MD [address] [facility] [address] [place] [address] 01/08/2025 3:20 PM EDT Office Visit [facility] [place] [address] [facility], [address] [place] [address] Vincent Braga MD [address] [place] [address] documented as of this encounter [...] on filedocumented in this encounter Care Teams Music Box Mechanic Relationship Specialty Start Date End Date Jony Conde MD [address] [place] [address] [address] [place] [address] PCP - General 07/18/22 12/03/22 Enedina Mcguire APRN [address] [place], [place] [id number] PCP - General 12/04/22 Lj Tapia APRN [address] [place] [address] Referring Physician Gastroenterology 07/18/22 Nuria Fall LPN [facility] TCM Nurse 07/24/24 08/23/24 documented as of this encounter
--- OUTSIDE RECORDS SUMMARY | 2024-11-06 08:29 | XMS_ITS | Encounter Summary ---
Author Organization Healthcare Address [address] [place] [address] Care Team Providers Care Forest Firefighter Name Role Phone Jony Conde MD Primary Care Provider [phone] Lj Tapia DRAGLINE OPERATOR Unavailable [phone] Enedina Mcguire DRAGLINE OPERATOR Primary Care Provider + Nuria Fall HARDWARE SUPPLIES SALES REPRESENTATIVE Unavailable Unavaila ble Encounter Details Date Type Department Care Team (Late Contact Info) Description 07/03/2022 Orders Only External Location [address] [place] [address] Presley Montes De Oca MD [address] [id number] Social History Tobacco Use Types Packs/Day Years [...] 12/01/2024 2:20 PM EDT Office Visit Professional [facility] Nephrology, Bone & Mineral Metabolism [address] [facility], [address] [place] [address] Yovanny Curran MD [address] [facility] [address] [place] [address] 01/08/2025 3:20 PM EDT Office Visit [facility] [place] [address] [facility], [address] [place] [address] Vincent Braga MD [address] [place] [address] documented as of this encounter [...] on filedocumented in this encounter Care Teams Forest Firefighter Relationship Specialty Start Date End Date Jony Conde MD [address] [place] [address] [address] [place] [address] PCP - General 07/18/22 12/03/22 Enedina Mcguire APRN [address] [place] [address] PCP - General 12/04/22 Lj Tapia APRN [address] [place] [address] Referring Physician Gastroenterology 07/18/22 Nuria Fall LPN [facility] TCM Nurse 07/24/24 08/23/24 documented as of this encounter
--- OUTSIDE RECORDS SUMMARY | 2024-11-06 08:29 | XMS_ITS | Clinical Summary ---
Author Organization Healthcare Address [address] [place] [address] Care Team Providers Care Airborne Weapons Technical Manager Name Role Phone Lj Tapia Rohini RICKS Unavailable [phone] Enedina Mcguire APRN Primary Care Provider + [...] injury) 08/30/2022 GI (gastrointestinal bleed) 06/14/2022 Encounters Date Type Department Care Team Description 09/29/2024 2:20 PM EDT Office Visit Professional [facility] Nephrology, Bone & Mineral Metabolism [address] [facility], [address] [place] [address] Yovanny Flores MD NADIYA (acute kidney injury) ([facility]) (Primary Dx); Portal hypertension ([facility]); Secondary esophageal varices with bleeding ([facility]) 09/29/2024 Travel 09/25/2024 Telephone [facility] Nephrology, Bone & Mineral Metabolism [address], [address] [place] [address] Chelsy Villanueva 08/25/2024 2:20 PM EDT Office Visit [facility] Nephrology, Bone & Mineral Metabolism [address], [address] [place] [address] Kalina bell, Yovanny Nicholson MD NADIYA (acute kidney injury) ([facility]) (Primary Dx) 08/25/2024 Travel 08/24/2024 Travel 08/21/2024 Telephone [facility] Nephrology, Bone & Mineral Metabolism [address] , [address] [place] [address] Chelsy Villanueva from Last 3 Months Immunizations Immunization Administration [...] answer 07/14/2024 How often do you attend [facility] or quaker services? Patient unable to answer 07/14/2024 Do you belong to any clubs o r organizations such as latter day groups, unions, fraternal or athletic groups, or [...] Recorded Patient Health Questionnaire-2 Score 2 09/29/2024 [facility] - Occupational Stress Questionnaire Answer Date Recorded [...] time in the past 12 m [facility] [place], were you homeless or living in a [...] drink first t deborah in the morning (EYE-VALIDATION CONSULTANT) to steady your nerves or to get rid of a hangover? 0 07/19/2024 CAGE Questionnaire Score 2 025 Utilities Answer Date Recorded In the past 12 months has th e electric, gas, oil, or water [employer] threatened to shut off services in your [...] 12/01/2024 2:20 PM EDT Office Visit Professional [facility] Nephrology, Bone & Mineral Metabolism [address], [address] [place] [address] Yovanny Curran MD [address] [place] [address] 01/08/2025 3:20 PM EDT Office Visit [facility] [place] [address], [address] [place] [address] Vincent Braga MD [address] [place] [address] Health Maintenance Due Date Last [...] 2 - 13+ 2-dose series) 10/11/2010 09/13/2010 [id number] Vaccine ( - 2023- season) 2024 03/17/2021, 07/25/2020, 06/27/2020 [facility]- SDOH Screenings 01/14/2025 [facility]-Adult SDOH Screenings 01/14/2025 07/14/2024 [facility]-Depression Screening 09/29/2025 09/29/2024, 09/11 [facility]-DTaP,Tdap,and Td Vaccines (3 - Td or Tdap) 06/03/2028 06/03/2018, 09/13/2010 [facility]-Zoster Vaccines (1 of 2) 2033 09/13/2010 [facility]-Abdominal Aortic Aneurysm (AAA) Screening 2048 07/28/2024, 07/28/2024, 07/29/2022, Additional history exists [facility]-Influenza Vaccine Completed 03/12/2024, 023 [facility]-Hepatitis C Screening Completed 2024, 11/14/2023, 08/01/2022 [facility]-Obesity Intervention Completed 025, 08/25/2024, 07/11/2024, Additional history exists [facility]-HIV Screening Completed 10/07/2024, , 11/14/2023 [facility]-HIB Vaccines Aged Out No longer e ligible based on patient's age to complete this topic [facility]-IPV Vaccines Aged Out No longer e ligible based on patient's age to complete this topic [facility]-Rotavirus Vaccines Aged Out No lo nger eligible based on patient's age to complete this topic Medical Devices Implanted Type Area Farm Consultant Device Identifier Shelf Expiration Date Model / Serial / Lot Concerto [place] Coil-07/03/2022 Implanted:06/15 by Timmy Brunner MD (Quantity not on file) Coil Abdomen Description:Multiple Coil Co ncerto Pgla [place] Detach COILS implanted on 07/03/2022 by Timmy Brunner MD at [facility]--info can be found in Care Everywhere for [facility] as of 11/15/23 Dona Coil-07/03/2022 Implanted:06/15 by Timmy Brunner MD (Quantity not on file) Coil Abdomen [employer] Description:Coil Emb Dona 3.7/Implanted: Qty: 1 on 07/03/2022 by Timmy Brunner MD at [facility] Plate Plate N/A: Neck Plug Vasc Anton Emb Amplatzer Implanted:06/15 by Timmy Brunner MD (Quantity not on file) Plug Other Vein / / [id number] Description:Plug Vasc Anton Em b Ampltz .027 [id number] - [id number] Implanted: Qty: 1 on 07/03/2022 by Timmy Brunner MD at [facility] Stent Gastro Panc 5fr 5cm - [id number] Implanted:Qty: 1 on 11/20/2023 by Devang Mcghee, RN at [facility] Pancreas [employer]-[id number] 08/13/2026 [id number] / / [id number] Procedures Procedure Name Priority Date/Time Associated Diagnosis Comments HEPATITIS C ANTIBODY W/REFLEX TO HCV QUANT PCR STAT 07/14/2024 4:31 PM EST HIV 1/2 ANTIBODY/ANTIGEN SCREEN WITH REFLEX TO HIV I/II DIFFERENTIATION STAT 07/14/2024 4:31 PM EST from Last 3 Months or Most Recently Relevant to Health Maintenance Results * HIV 1 & 2 Antibody/Antigen Screen (07/14/2024 4:31 PM EST) HIV 1 & 2 Antibody/Antigen Screen Non Reactive Non Reactive 07/14/2024 5:31 PM EST [facility] Comment:Screening for HIV 1 & 2 antibodies, and P24 antigen is NONREACTIVE. No confirmatory testing is required. Blood Venous blood specimen / Unknown Venipuncture / Unknown 07/14/2024 4:31 PM EST 07/14/2024 4:56 PM EST Laureano Salinas APRN, [facility] BLOOD ORDERA BLES Final Result Performing Organization Address City/[facility]/ZIP Co de Phone Number [facility] [address] [place] [address] * Hepatitis C Antibody (07/14/2024 4:31 PM EST) [facility] Signature Hepatitis C Antibody Negative Negative 07/14/2024 5:27 PM EST [facility] Blood Venous blood specimen / Unknown Venipuncture / Unknown 07/14/2024 4:31 PM EST 07/14/2024 4:54 PM EST Laureano Salinas APRN, [facility] BLOOD ORDERA BLES Final Result Performing Organization Address City/[facility] Co de Phone Number [facility] [address] [place] [address] from Last 3 Months or Most Recently Relevant to Health Maintenance Insurance [facility] [place] [address] HEALTHCARE Advance Directives * Full Code (Latest Code Status on File) Date Activated Date Inactivated Comments 07/11/2024 11:04 PM 07/23/2024 6:27 PM Question Answer Comments Patient has decision-making capacity? Yes * Full Code Date Activated Date Inactivated Comments 11/14/2023 10:15 PM 11/27/2023 9:08 PM Question Answer Comments Patient has decision-making capacity? Yes Care Teams Airborne Weapons Technical Manager Relationship Specialty Start Date End Date Enedina Mcguire APRN [address] [place] [address] PCP - General 12/04/22 Lj Tapia APRN [address] [place] [address] Referring Physician Gastroenterology 07/18/22
--- OUTSIDE RECORDS SUMMARY | 2024-11-06 08:29 | XMS_ITS | Encounter Summary ---
Author Organization [facility] Address [address] [place] [address] Care Team Providers Care Hospitalist Name Role Phone Enedina Mcguire NP Primary Care Provider + [phone] Maureen Pantoja RN Unavailable Unavail able Source [...] release of HIV test results or diagnoses. [id number] Reason for Visit * Reason Comments Medication Refill Refill Request 1st A ttempt Encounter Details Date Type Department Care Team (Late st Contact Info) Description 10/21/2024 Refill [facility] Gastroenterology at [facility] Office [address] [place] [address] Gerri Peterson MD [address] [place] [address] Social History Tobacco Use Types Packs/Day Years Used Date Smoking Tobacco: Former Cigarettes Smokeless Tobacco: Current Alcohol Use Standard Drinks/Week Comments Yes 0 (1 standard drink = 0.6 oz pure alcohol) History of alcohol abuse, reports no use in 3 week- typically endorses use as 4 glasses of wine a days Utilities Answer Date Recorded In the past 12 months has [employer], gas, oil, or water [employer] threatened to shut off services in your [...] of [place] ENDOSCOPY [address] [place] [phone] Chris Orosco MD [address] [place] [address] 12/05/2024 8:01 AM EDT - 12/05/2024 8:31 AM EDT [facility] ENDOSCOPY [address] [place] [phone] Chris Orosco MD [address] [place] [phone] EGD Scheduled Procedures Name Priority Associated Diagnoses Date/Ti me EGD Cirrhosis of liver with ascites, unspecified hepatic cirrhosis type ([facility]) 12/05/2024 8:01 AM EDT documented [...] as of this encounter Care Teams Hospitalist Relationship Specialty Start Date End Date Enedina Mcguire NP [address] [place] [address] PCP - General Internal Medicine 10/05/24 Maureen Pantoja, ЮЛИЯ Txp Post Coordinator Transplant Hepatology 10/28/24 documented as of this encounter
--- OUTSIDE RECORDS SUMMARY | 2024-11-06 08:29 | XMS_ITS | Encounter Summary ---
Author Organization Healthcare Address [address] [place] [address] Care Team Providers Care Museum Service Scheduler Name Role Phone Jony Conde MD Primary Care Provider [phone] Lj Tapia NURSE OB Unavailable [phone] Enedina Mcguire NURSE OB Primary Care Provider + Nuria Fall MODEL MAKER APPRENTICE Unavailable Unavaila ble Encounter Details Date Type Department Care Team (Late Contact Info) Description 07/04/2022 Orders Only External Location [address] [place] [address] Presley Montes De Oca MD [address] [phone] Social History Tobacco Use Types Packs/Day Years [...] [facility], [address] [place] [address] Yovanny Curran MD [address] [facility] [address] [place] [address] 01/08/2025 3:20 PM EDT Office Visit [facility] [place] [address] [facility], [address] [place] [address] Vincent Braga MD [address] [place] [address] documented as of this encounter [...] on filedocumented in this encounter Care Teams Museum Service Scheduler Relationship Specialty Start Date End Date Jony Conde MD [address] [place] [address] [address] [place] [address] PCP - General 07/18/22 12/03/22 Enedina Mcguire APRN [address] [place], [place] [phone] PCP - General 12/04/22 Lj Tapia APRN [address] [place] [address] Referring Physician Gastroenterology 07/18/22 Nuria Fall LPN [facility] TCM Nurse 07/24/24 08/23/24 documented as of this encounter
--- OUTSIDE RECORDS SUMMARY | 2024-11-06 08:29 | XMS_ITS | Encounter Summary ---
Author Organization [facility] Address [address] [place] [address] Care Team Providers Care Shipfitter Apprentice Name Role Phone Enedina Mcguire NP Primary Care Provider [phone] Source Comments This information has been disclosed [...] release of HIV test results or diagnoses. [id number] Encounter Details Date Type Department Care Team (Late st Contact Info) Description 10/17/2024 Chart Note [facility] Kidney Transplant at [address] [place] [phone] Anny Cote RN Social History Tobacco Use [...] Recorded In the past 12 months has [employer], gas, oil, or water [employer] threatened to shut off services in your [...] 12/05/2024 8:01 AM EDT Hospital Encounter [facility] ENDOSCOPY [address] [place] [address] Chris Orosco MD [address] [place] [phone] 12/05/2024 8:01 AM EDT - 12/05/2024 8:31 AM EDT Surgery [facility] ENDOSCOPY [address] [place] [address] Chris Orosco MD [address] [place] [phone] EGD Scheduled Procedures Name Priority Associated Diagnoses Date/Ti me EGD Cirrhosis of liver with ascites, unspecified hepatic cirrhosis type ([facility]) 12/05/2024 8:01 AM EDT documented as of this encounter Visit Diagnoses Not on filedocumented in this encounter Additional Health Concerns Infection Onset Date Last Indicated Resolved Time C. difficile 09/09/2024 09/09/2024 10/27/2024 8:30 AM EDT Assessment Noted Time PHQ-9 Depression Total Score: 17 05/ 025 11:00 AM EDT documented as of this encounter Care Teams Shipfitter Apprentice Relationship Specialty Start Date End Date Enedina Mcguire NP [address] [place] [address] PCP - General Internal Medicine 10/05/24 documented as of this encounter
--- OUTSIDE RECORDS SUMMARY | 2024-11-06 08:29 | XMS_ITS | Encounter Summary ---
Author Organization [facility] Address [address] [place] [address] Care Team Providers Care Saw Runner Name Role Phone ReginaLj dixon Rohini RICKS Unavailable [phone] Enedina Mcguire APRN Primary Care Provider + [...] How often do you attend chur or congregation services? Patient unable to answer 07/14/2024 Do you belong to any clubs o r organizations such as jew groups, unions, fraternal or athletic groups, or [...] Recorded Patient Health Questionnaire-2 Score 2 09/29/2024 [facility] - [...] place to sleep or slept in a [place] (including now)? No 11/19/2023 PHQ-9 Answer Date [...] [place] facility (including now)? 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-DATA OFFICER) to steady your nerves or to get [...] appetite or overeating Not at all 09/29/2024 1 :47 PM EDT Janice Bryant Feeling bad about [...] usual. Not at all 09/29/2024 1:47 PM SANTOT Janice Bryant Thoughts that you would be b mariza off or hurting yourself in some way Not at all 09/29/2024 1:47 PM SANTOT Janice Bryant Patient Health Questionnaire -9 Score 3 09/29/2024 1:47 PM SANTOT Janice Bryant * If you checked off any problems on this questionnaire so far, Question Answer Date of Assessment Author How difficult have these problems made it for you to do your work, take care of things at home, or get along with other people? Not difficult at all 09/29/2024 1:47 PM EDT Jimmy Bryanta documented as of this encounter Plan of Treatment Upcoming Encounters Date Type Department Care Team (Late st Contact Info) Description 12/01/2024 2:20 PM EDT Office Visit [facility] [employer] [place] Nephrology, Bone & Mineral Metabolism [address], [address] [place] [address] Yovanny Curran MD [address] [place] [address] 01/08/2025 3:20 PM EDT Office Visit [facility] [address], [address] [place] [address] Vincent Braga MD [address] [place] [address] documented as of this encounter [...] documented as of this encounter Care Teams Saw Runner Relationship Specialty Start Date End Date Enedina Mcguire APRN [address] [place] [address] PCP - General 12/04/22 Lj Tapia APRN [address] [place] [address] Referring Physician Gastroenterology 07/18/22 documented as of this encounter
--- OUTSIDE RECORDS SUMMARY | 2024-11-06 08:29 | XMS_ITS | Encounter Summary ---
Author Organization [facility] Address [address] [place] [address] Care Team Providers Care Jewel Hole Cornerer Name Role Phone Enedina Mcguire NP Primary Care Provider + [phone] Maureen Pantoja RN Unavailable Unavail able Source [...] release of HIV test results or diagnoses. [id number] Reason for Visit * Reason Comments Medication Refill Refill Request 1st A ttempt Encounter Details Date Type Department Care Team (Late st Contact Info) Description 10/20/2024 Refill [facility] Gastroenterology at [facility] Office [address] [place] [address] Gerri Peterson MD [address] [place] [address] Social History Tobacco Use Types Packs/Day Years Used Date Smoking Tobacco: Former Cigarettes Smokeless Tobacco: Current Alcohol Use Standard Drinks/Week Comments Yes 0 (1 standard drink = 0.6 oz pure alcohol) History of alcohol abuse, reports no use in 3 week- typically endorses use as 4 glasses of wine a days Utilities Answer Date Recorded In the past 12 months has [employer], gas, oil, or water [employer] threatened to shut off services in your [...] any time in the past 12 m [facility], were you homeless or [...] need filled today. PHARMACY & PHONE #: [facility] [address] [place] [address] [address] [address] DATE OF LAST APPT: 09/02/2024 Gerri Peterson MD DATE OF NEXT APPT: 12/02/2024 GI/LIVER FELLOW 4 documented in this encounter Plan of Treatment Upcoming Encounters Date Type Department Care Team (Late st Contact Info) Description 12/05/2024 8:01 AM EDT Hospital Encounter [facility] ENDOSCOPY [address] [place] [address] Chris Orosco MD [address] [place] [phone] 12/05/2024 8:01 AM EDT - 12/05/2024 8:31 AM EDT Surgery [facility] ENDOSCOPY [address] [place] [address] Chris Orosco MD [address] [place] [address] EGD Scheduled Procedures Name Priority Associated Diagnoses [...] documented as of this encounter Care Teams Jewel Hole Cornerer Relationship Specialty Start Date End Date Enedina Mcguire NP [address] [place] [address] PCP - General Internal Medicine 10/05/24 Maureen Pantoja, RN Txp Post Coordinator Transplant Hepatology 10/28/24 documented as of this encounter
--- OUTSIDE RECORDS SUMMARY | 2024-11-06 08:29 | XMS_ITS | Encounter Summary ---
Author Organization [facility] Address [address] [place] [address] Care Team Providers Care Tear Down Matcher Name Role Phone Enedina Mcguire NP Primary Care Provider [phone] Source Comments This information has been disclosed [...] release of HIV test results or diagnoses. [id number] Encounter Details Date Type Department Care Team (Late st Contact Info) Description 10/17/2024 Chart Note [facility] Kidney Transplant at [address] [place] [address] Anny Cote, RN Copy of HLA [...] In the past 12 months has e [employer], gas, oil, or water [employer] threatened to shut off services in your [...] Description 12/05/2024 8:01 AM EDT Hospital Encounter [facility] ENDOSCOPY [address] [place] [address] Chris Orosco MD [address] [place] [address] 12/05/2024 8:01 AM EDT - 12/05/2024 8:31 AM EDT Surgery [facility] ENDOSCOPY [address] [place] [address] Chris Orosco MD [address] [place] [phone] EGD Scheduled Procedures Name Priority Associated Diagnoses [...] documented as of this encounter Care Teams Tear Down Matcher Relationship Specialty Start Date End Date Enedina Mcguire NP [address] [place] [address] PCP - General Internal Medicine 10/05/24 documented as of this encounter
--- OUTSIDE RECORDS SUMMARY | 2024-11-06 08:29 | XMS_ITS | Encounter Summary ---
Author Organization [facility] Address [address] [place] [address] Care Team Providers Care Elevator Installer Apprentice Name Role Phone Enedina Mcguire NP Primary Care Provider + [phone] Maureen Pantoja RN Unavailable Unavail able Source [...] release of HIV test results or diagnoses. [id number] Reason for Visit * Reason Comments Medication Management Requesting RX for New Medication Encounter Details Date Type Department Care Team (Late st Contact Info) Description 10/21/2024 Telephone [facility] G[facility]ology at [facility] [address] [place] [address] Gerri Peterson MD [address] [place] [address] Medication Management (Requesting RX for [...] In the past 12 months has th [employer], oil, or [employer] threatened to shut off services in your [...] Pt called. States he was discharged from [facility] on 10/17 with instructions to contact PCP to start Rx Torsemide 20 mg one tablet a day. PCP is out of town and was advised by interior design project manager in office to contact gastro MD to obtain Rx. Pt states he is retaining 30 pounds of fluid and needs MD to send a prescription or return call dali. Pt can be reached at [phone] documented in this encounter Plan of Treatment Upcoming Encounters Date Type Department Care Team (Late st Contact Info) Description 12/05/2024 8:01 AM EDT Hospital Encounter [facility] ENDOSCOPY [address] [place] [address] Chris Orosco MD [address] [place] [phone] 12/05/2024 8:01 AM EDT - 12/05/2024 8:31 AM EDT Surgery [facility] ENDOSCOPY [address] [place] [address] Chris Orosco MD [address] [place] [address] EGD Scheduled Procedures Name Priority Associated Diagnoses Date/Ti me EGD Cirrhosis of liver with ascites, unspecified hepatic cirrhosis type ([facility]) 12/05/2024 8:01 AM EDT [...] as of this encounter Care Teams Elevator Installer Apprentice Relationship Specialty Start Date End Date Enedina Mcguire NP [address] [place] [address] PCP - General Internal Medicine 10/05/24 Maureen Pantoja, RN Txp Post Coordinator Transplant Hepatology 10/28/24 documented as of this encounter
--- OUTSIDE RECORDS SUMMARY | 2024-11-06 08:29 | XMS_ITS | Encounter Summary ---
Author Organization [facility] Address [address] [place] [address] Care Team Providers Care Medical Resident Name Role Phone Regina, Lj Nova APRN Unavailable [phone] Enedina Mcguire APRN Primary Care Provider + Encounter Details Date Type Department Care Team ([facility] st Contact Info) Description 09/25/2024 Telephone [facility] Nephrology, Bone & Mineral Metabolism [address] [facility], [address] [place] [address] Chelsy Villanueva Social History Tobacco [...] often do you attend chur ch or lutheran services? Patient unable to answer [...] Recorded Patient Health Questionnaire-2 Score 2 09/29/2024 [facility] - Occupational Stress Questionnaire Answer [...] place to sleep or slept in a fpc (including now)? No 11/19/2023 PHQ-9 Answer Date [...] any time in the past 12 m [facility], were you homeless or living in a fpc (including now)? 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-NEWSPAPER PHOTOJOURNALIST) to steady your nerves or to get [...] 10:35 AM EDT Lab order faxed to [facility] at [phone] * Telephone Encounter - Shelby Rush - 09/30/2024 10:16 AM EDT Clinical Concern/Question Reason for Call: Per [facility] please fax patient's lab order to: [phone] Best contact number: Other: [phone] Optimal time of day to reach caller: [...] Description 12/01/2024 2:20 PM EDT Office Visit [facility] Nephrology, Bone & Mineral Metabolism [address], [address] [place] [address] Yovanny Curran MD [address] [place] [address] 01/08/2025 3:20 PM EDT [facility] [address], [address] [place] [address] Vincent Braga MD [address] [place] [address] documented as of this encounter Visit Diagnoses Not on filedocumented in this encounter Additional Health Concerns Assessment Noted Time A fall risk assessment has been complete d for the patient 08/25/2024 2:07 PM EDT A Body Mass Index follow-up plan has been documented for the patient 08/29/2024 9:18 AM EDT documented as of this encounter Care Teams Medical Resident Relationship Specialty Start Date End Date Enedina Mcguire APRN [address] [place] [address] PCP - General 12/04/22 Lj Tapia APRN [address] [place] [address] Referring Physician Gastroenterology 07/18/22 documented as of this encounter
--- OUTSIDE RECORDS SUMMARY | 2024-11-06 08:29 | XMS_ITS | Encounter Summary ---
Author Organization [facility] Address [address] [place] [address] Care Team Providers Care Sales Hunter Name Role Phone Enedina Mcguire NP Primary Care Provider [phone] Source Comments This information has been disclosed [...] release of HIV test results or diagnoses. [id number] Encounter Details Date Type Department Care Team (Late st Contact Info) Description 10/20/2024 Telephone [facility] Liver Transplant at [address] [address] Mary Butler, RN Social History Tobacco Use [...] Recorded In the past 12 months has [employer], gas, oil, or water [employer] threatened to shut off services in your [...] at this time. Lab orders faxed to [facility] at [phone] and emailed to patient. documented in this encounter Plan of Treatment Upcoming Encounters Date Type Department Care Team (Late st Contact Info) Description 12/05/2024 8:01 AM EDT Hospital Encounter [facility] ENDOSCOPY [address] [place] [address] Chris Orosco MD [address] [place] [phone] 12/05/2024 8:01 AM EDT - 12/05/2024 8:31 AM EDT Surgery [facility] ENDOSCOPY [address] [place] [address] Chris Orosco MD [address] [place] [address] EGD Scheduled Procedures Name Priority Associated Diagnoses [...] as of this encounter Care Teams Sales Hunter Relationship Specialty Start Date End Date Enedina Mcguire NP [address] [place] [address] PCP - General Internal Medicine 10/05/24 documented as of this encounter
--- OUTSIDE RECORDS SUMMARY | 2024-11-06 08:29 | XMS_ITS | Encounter Summary ---
Author Organization [facility] Address [address] [place] [address] Care Team Providers Care Outside Sales Inspector Name Role Phone Jony Conde MD Primary Care Provider [phone] Lj Tapia TIP LENGTH CHECKER Unavailable [phone] Enedina Mcguire TIP LENGTH CHECKER Primary Care Provider + Nuria Fall RETIREMENT SPECIALIST Unavailable Unavaila ble Encounter Details Date Type Department Care Team (Late Contact Info) Description 07/02/2022 Orders Only External Location [address] [place] [phone] Provider, External Social History Tobacco Use Types [...] Description 12/01/2024 2:20 PM EDT Office Visit [facility] Nephrology, Bone & Mineral Metabolism [address] [place] [address] Yovanny Curran MD [address] [place] [address] 01/08/2025 3:20 PM EDT Office Visit [facility] [address] [place] [address] Vincent Braga MD [address] [place] [phone] documented as of this encounter Procedures Procedure [...] on filedocumented in this encounter Care Teams Outside Sales Inspector Relationship Specialty Start Date End Date Jony Conde MD [address] [place] [address] [address] [place] [address] PCP - General 07/18/22 12/03/22 Enedina Mcguire APRN [address] [place] [address] PCP - General 12/04/22 Lj Tapia APRN [address] [place] [address] Referring Physician Gastroenterology 07/18/22 Nuria Fall LPN [facility] TCM Nurse 07/24/24 08/23/24 documented as of this encounter
--- OUTSIDE RECORDS SUMMARY | 2024-11-06 08:30 | XMS_ITS | Encounter Summary ---
Author Organization [facility] Address [address] [place] [address] Care Team Providers Care Renewable Energy Consultant Name Role Phone Enedina Mcguire NP Primary Care Provider + [phone] Maureen Pantoja RN Unavailable Unavail able Source [...] release of HIV test results or diagnoses. [id number] Health Encounter Details Date Type Department Care Team (Late st Contact Info) Description 11/04/2024 [facility] Kidney Transplant at [address] [place] [phone] Ben Weiss, DMITRY Social History Tobacco Use Types Packs/Day Years Used Date Smoking Tobacco: Former Cigarettes Smokeless Tobacco: Current Alcohol Use Standard Drinks/Week Comments Yes 0 (1 standard drink = 0.6 oz pure alcohol) History of alcohol abuse, reports no use in 3 week- typically endorses use as 4 glasses of wine a days Utilities Answer Date Recorded In the past 12 months has [employer], gas, oil, or water [employer] threatened to shut off services in your [...] 12/05/2024 8:01 AM EDT Hospital Encounter [facility] ENDOSCOPY [address] [place] [address] Chris Orosco MD [address] [place] [phone] 12/05/2024 8:01 AM EDT - 12/05/2024 8:31 AM EDT Surgery [facility] ENDOSCOPY [address] [place] [address] Chris Orosco MD [address] [place] [address] EGD Scheduled Procedures Name Priority Associated Diagnoses Date/Ti me EGD Cirrhosis of liver with ascites, unspecified hepatic cirrhosis type ([facility]) 12/05/2024 8:01 AM EDT documented as of this encounter Visit Diagnoses Not on filedocumented in this encounter Additional Health Concerns Infection Onset Date Last Indicated Resolved Time 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
--- OUTSIDE RECORDS SUMMARY | 2024-11-06 08:30 | XMS_ITS | Encounter Summary ---
Author Organization [facility] Address [facility] [place] [address] Care Team Providers Care Greens Picker Name Role Phone Enedina Mcguire NP Primary Care Provider + [phone] Maureen Pantoja RN Unavailable Unavail able Source [...] release of HIV test results or diagnoses. [id number] Health Encounter Details Date Type Department Care Team (Late st Contact Info) Description 10/31/2024 Orders Only [facility] Liver Transplant at [facility] [address] [facility] [address] [place] [address] Harvey Domínguez III, MD [address] [place] [address] [address] [place] [address] Liver replaced by transplant ([facility]) (Primary Dx); Immunosuppressive management encounter following liver transplant ([facility]) Social History Tobacco Use Types Packs/Day Years [...] past 12 months has th e electric, [employer], [employer], or water [employer] threatened to shut off services in your [...] meals, medication, transportation or medical equipment? No 04/22 /2025 Assistance needed for: Not on file Sex [...] EDT Hospital Encounter [facility] ENDOSCOPY [address] [place] [address] Chris Orosco MD [address] [place] [phone] 12/05/2024 8:01 AM EDT - 12/05/2024 8:31 AM EDT Surgery [facility] ENDOSCOPY [address] [place] [address] Chris Orosco MD [address] [place] [phone] EGD Scheduled Orders Name Type Priority Associated Diagnoses Orde r Schedule Tacrolimus level Lab Routine Liver replaced by transplant (CMS-HCC) Immunosuppressive management encounter following liver transplant (CMS-HCC) 70 Occurrences starting 11/03/2024 until 10/31/2025, 1 completed Hepatic Function Panel Lab Routine Liver replaced by transplant (CMS-HCC) Immunosuppressive management encounter following liver transplant (CMS-HCC) 70 Occurrences starting 11/03/2024 until 10/31/2025, 1 completed Renal Function Panel w/EGFR Lab Routine Liver replaced by transplant (CMS-HCC) Immunosuppressive management encounter following liver transplant (CMS-HCC) 70 Occurrences starting 11/03/2024 until 10/31/2025, 1 completed CBC Lab Routine Liver replaced by transplant (CMS-HCC) Immunosuppressive management encounter following liver transplant (CMS-HCC) 70 Occurrences starting 11/03/2024 until 10/31/2025, 1 completed Differential Lab Routine Liver replaced by transplant (CMS-HCC) Immunosuppressive management encounter following liver transplant (CMS-HCC) 70 Occurrences starting 11/03/2024 until 10/31/2025, 1 completed Scheduled Procedures Name Priority Associated Diagnoses Date/Ti me EGD Cirrhosis of liver with ascites, unspecified hepatic cirrhosis type (CMS-HCC) 12/05/2024 8:01 AM EDT documented as of this encounter Results * (ABNORMAL) Differential (11/04/2024 8:46 AM EDT) Differential Comments See Note 11/05/2024 12:05 AM EDT [facility] Comment: _Platelets Appear Decreased _Platelet Morphology Normal Myelocytes Relative 3.0(H) 0.0 - 0.0 % 11/05/2024 12:05 AM EDT [facility] Neutrophils Relative 73.0 40.0 - 80.0 % 11/05/2024 12:05 AM EDT [facility] Lymphocytes Relative 17.0 15.0 - 45.0 % 11/05/2024 12:05 AM EDT [facility] Monocytes Relative 6.0 0.0 - 12.0 % 11/05/2024 12:05 AM EDT [facility] Eosinophils Relative 1.0 0.0 - 8.0 % 11/05/2024 12:05 AM EDT [facility] Basophils Relative 0.0 0.0 - 1.0 % 11/05/2024 12:05 AM EDT [facility] Neutrophils Absolute 5,256 1,520 - 8,640 /uL 11/05/2024 12:05 AM EDT [facility] Myelocytes Absolute 216(H) 0 - 0 /uL 11/05/2024 12:05 AM EDT [facility] Lymphocytes Absolute 1,224 570 - 4,860 /uL 11/05/2024 12:05 AM EDT [facility] Monocytes Absolute 432 0 - 1,296 /uL 11/05/2024 12:05 AM EDT [facility] Eosinophils Absolute 72 0 - 864 /uL 11/05/2024 12:05 AM EDT [facility] Basophils Absolute 0 0 - 108 /uL 11/05/2024 12:05 AM EDT [facility] PLT Morphology Platelet morphology appears normal 11/05/2024 12:05 AM EDT [facility] Whole Blood 11/04/2024 8:46 AM EDT 11/04/2024 11:01 PM EDT Narrative [facility] - 11/05/2024 12:05 AM EDT Standing orders to be drawn: Every Sunday and before 9am and prior to patient taking morning medications. Liver Transplant Fax results to [phone] Call Critical results to [phone] Manual WBC differential performed per review criteria approved by the medical assistant ob gyn. us Harvey Domínguez III, MD LAB BLOOD ORDERABLE S Final Result [facility] [address] [place] [address], [facility] * (ABNORMAL) CBC (11/04/2024 8:46 AM EDT) WBC 7.2 3.8 - 10.8 10E3/uL 11/05/2024 12:05 AM EDT [facility] RBC 3.17(L) 4.20 - 5.80 10E6/uL 11/05/2024 12:05 AM EDT [facility] Hemoglobin 9.7(L) 13.2 - 17.1 g/dL 11/05/2024 12:05 AM EDT [facility] Hematocrit 28.6(L) 38.5 - 50.0 % 11/05/2024 12:05 AM EDT [facility] MCV 90.2 80.0 - 100.0 fL 11/05/2024 12:05 AM EDT [facility] MCH 30.5 27.0 - 33.0 pg 11/05/2024 12:05 AM EDT [facility] MCHC 33.8 32.0 - 36.0 g/dL 11/05/2024 12:05 AM EDT [facility] RDW 17.9(H) 11.0 - 15.0 % 11/05/2024 12:05 AM EDT [facility] Platelets 137(L) 140 - 400 10E3/uL 11/05/2024 12:05 AM EDT [facility] Platelet Estimate Decreased 11/05/2024 12:05 AM EDT [facility] MPV 8.4 7.5 - 11.5 fL 11/05/2024 12:05 AM EDT [facility] Whole Blood 11/04/2024 8:46 AM EDT 11/04/2024 11:01 PM EDT Narrative [facility] - 11/05/2024 12:05 AM EDT Standing orders to be drawn: Every Sunday and before 9am and prior to patient taking morning medications. Liver Transplant Fax results to [phone] Call Critical results to [phone] Peripheral blood smear was scanned per review criteria approved by the laboratory medical assistant ob gyn. us Harvey Domínguez III, MD LAB BLOOD ORDERABLE S Final Result [facility] [address] [facility] [place] [address], [facility] * (ABNORMAL) Renal Function Panel w/EGFR (11/04/2024 8:46 AM EDT) Sodium 139 133 - 146 mmol/L 11/04/2024 10:06 AM EDT [facility] Potassium 3.8 3.5 - 5.3 mmol/L 11/04/2024 10:06 AM EDT [facility] Chloride 106 98 - 110 mmol/L 11/04/2024 10:06 AM EDT [facility] CO2 25 21 - 33 mmol/L 11/04/2024 10:06 AM EDT [facility] Anion Gap 8 3 - 16 mmol/L 11/04/2024 10:06 AM EDT [facility] BUN 34(H) 7 - 25 mg/dL 11/04/2024 10:06 AM EDT [facility] Creatinine 1.08 0.60 - 1.30 mg/dL 11/04/2024 10:06 AM EDT [facility] Glucose 92 70 - 100 mg/dL 11/04/2024 10:06 AM EDT [facility] Calcium 7.8(L) 8.6 - 10.3 mg/dL 11/04/2024 10:06 AM EDT [facility] Phosphorus 1.9(L) 2.1 - 4.7 mg/dL 11/04/2024 10:06 AM EDT [facility] Albumin 3.5 3.5 - 5.7 g/dL 11/04/2024 10:06 AM EDT [facility] Osmolality, Calculated 295 278 - 305 mOsm/kg 11/04/2024 10:06 AM EDT [facility] EGFR 88 11/04/2024 10:06 AM EDT [facility] Comment:As of 2021, the estimated [...] Disease. Am J Kidney Dis. 2020. Plasma 11/04/2024 8:46 AM EDT 11/04/2024 9:32 AM EDT Narrative [facility] - 11/04/2024 10:06 AM EDT Standing orders to be drawn: Every Sunday and before 9am and prior to patient taking morning medications. Liver Transplant Fax results to [phone] Call Critical results to [phone] DO NOT REPLACE RENAL PANEL or HEPATIC FUNCTION PANEL w/ CMP, BMP or HEPATIC PROFILE us Harvey Domínguez III, MD LAB BLOOD ORDERABLE S Final Result [facility] [address] [place] [address], [facility] * (ABNORMAL) Hepatic Function Panel (11/04/2024 8:46 AM EDT) Total Bilirubin 1.3 0.0 - 1.5 mg/dL 11/04/2024 10:06 AM EDT [facility] Bilirubin, Direct 0.57(H) 0.00 - 0.40 mg/dL 11/04/2024 10:06 AM EDT [facility] AST 20 13 - 39 U/L 11/04/2024 10:06 AM EDT [facility] ALT 67(H) 7 - 52 U/L 11/04/2024 10:06 AM EDT [facility] Alkaline Phosphatase 133(H) 36 - 125 U/L 11/04/2024 10:06 AM EDT [facility] Total Protein 5.4(L) 6.4 - 8.9 g/dL 11/04/2024 10:06 AM EDT [facility] Albumin 3.5 3.5 - 5.7 g/dL 11/04/2024 10:06 AM EDT [facility] Bilirubin, Indirect 0.73 0.00 - 1.10 mg/dL 11/04/2024 10:06 AM EDT [facility] Plasma 11/04/2024 8:46 AM EDT 11/04/2024 9:32 AM EDT Narrative [facility] - 11/04/2024 10:06 AM EDT Standing orders to be drawn: Every Sunday and before 9am and prior to patient taking morning medications. Liver Transplant Fax results to [phone] Call Critical results to [phone] DO NOT REPLACE RENAL PANEL or HEPATIC FUNCTION PANEL w/ CMP, BMP or HEPATIC PROFILE Harvey Domínguez III, MD LAB BLOOD ORDERABLE S Final Result Performing Organization Address City/State/[facility] Co de Phone Number [facility] [address] [place], [place] [address] * Tacrolimus level (11/04/2024 8:46 AM EDT) Tacrolimus (LC-MS) 9.0 3.0 - 15.0 ng/mL 11/04/2024 3:14 PM EDT [facility] Comment:Performed via liquid chromatography tandem mass spectrometry. Detection limit: 1 ng/mL. Individual target concentrations may vary due to target organ and time after transplant. This test has been developed and its performance characteristics determined by [facility] which is certified under the Clinical Laboratory Improvement Amendment of 1988 (CLIA-88) to perform high complexity testing. The test has not been cleared or approved by the US Food and Drug Administration (FDA). The FDA has determined that such clearance is not necessary. The test should be used for clinical purposes and is not regarded as investigational. Whole Blood 11/04/2024 8:46 AM EDT 11/04/2024 9:35 AM EDT Narrative [facility] - 11/04/2024 3:14 PM EDT Standing orders to be drawn: Every Sunday and before 9am and prior to patient taking morning medications. Liver Transplant Fax results to [phone] Call Critical results to [phone] us Harvey Domínguez III, MD LAB BLOOD ORDERABLE S Final Result Performing Organization Address City/State/[facility] Co de Phone Number [facility] [address] documented in this encounter Visit Diagnoses Diagnosis Liver replaced by transplant (CMS-HCC)- Primary Liver replaced by transplant Immunosuppressive management encounter following liver transplant (CMS-HCC) Cirrhosis of liver with ascites, unspecified hepatic cirrhosis type (CMS-HCC) documented in this encounter Additional Health Concerns Infection Onset Date Last Indicated Resolved Time 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
--- OUTSIDE RECORDS SUMMARY | 2024-11-06 08:30 | XMS_ITS | Encounter Summary ---
Author Organization [facility] Address [address] [place] [address] Care Team Providers Care Bi Tester Name Role Phone Enedina Mcguire NP Primary Care Provider + [phone] Maureen Pantoja RN Unavailable Unavail able Source [...] release of HIV test results or diagnoses. [id number] Health Encounter Details Date Type Department Care Team (Late st Contact Info) Description 11/04/2024 Social Work [facility] Liver Transplant at [address] [place] [phone] Kaylin Willard MSW Social History Tobacco Use [...] Recorded In the past 12 months has [employer], gas, oil, or water [employer] threatened to shut off services in your [...] in the past 12 m [facility], were you homeless or living [...] encounter Progress Notes * NUBIA Barros - 11/04/2024 9:38 AM EDT Social Work Outpatient Note- Liver Transplant Patient is status post SLK transplant on 10/27/2024. SW met with Patient and spouse during Post Liver Transplant Clinic. Patient discharged home and is set up with outpatient labs and has returned home. He plans to stay in a hotel prior to his follow-up appointments. Patient reports he is still struggling with pain post-transplant and attributes this to his limitedmobility prior/post transplant. He is hopeful this will improve with time and increased mobility/strength. He reports his mood is stable and has occasional frustration with lack of sleep. He was started on Prozac inpatient and denies any side effects but is also unsure if it is effective at this time. He plans to continue to take as prescribed. Patient reports he completed CD treatment with [facility] and was referred to [facility] for aftercare and will be attending 1 week virtual individual counseling sessions.He reports he was due to start this while hospitalized for the transplant and plans to reschedule his next session. Hope Stone given. SW discussed process for writing to Donor family and confirmed Pt/family have [facility] brochure. No further SW needs identified. NUBIA Barros, DRUPAL WEB DEVELOPER Transplant Stock Car Driver documented in this encounter Plan of Treatment Upcoming Encounters Date Type Department Care Team (Late st Contact Info) Description 12/05/2024 8:01 AM EDT Hospital Encounter [facility] ENDOSCOPY [address] [place] [phone] Chris Orosco MD [address] [place] [address] 12/05/2024 8:01 AM EDT - 12/05/2024 8:31 AM EDT Surgery [facility] ENDOSCOPY [address] [place] [phone] Chris Orosco MD [address] [place] [phone] EGD Scheduled Procedures Name Priority Associated Diagnoses Date/Ti me EGD Cirrhosis of liver with ascites, unspecified hepatic cirrhosis type ([facility]) 12/05/2024 8:01 AM EDT documented as of this encounter Visit Diagnoses Not on filedocumented in this encounter Additional Health Concerns Infection Onset Date Last Indicated Resolved Time 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
--- OUTSIDE RECORDS SUMMARY | 2024-11-06 08:30 | XMS_ITS | Encounter Summary ---
Author Organization [facility] Address [address] [place] [address] Care Team Providers Care Monitoring Manager Name Role Phone Enedina Mcguire NP Primary Care Provider [phone] Source Comments This information has been disclosed [...] release of HIV test results or diagnoses. [id number] Reason for Visit * Reason Comments Prescription Issue RX Clarification Req uest Encounter Details Date Type Department Care Team (Late st Contact Info) Description 10/20/2024 Telephone [facility] Gastroenterology at [facility] Office [address] [place] [address] Gerri Peterson MD [address] [place] [address] Prescription Issue (RX Clarification Request [...] Recorded In the past 12 months has [employer], gas, oil, or water [employer] threatened to shut off services in your [...] to be filled Please return call to [phone]. documented in this encounter Plan of Treatment Upcoming Encounters Date Type Department Care Team (Late st Contact Info) Description 12/05/2024 8:01 AM EDT Hospital Encounter [facility] ENDOSCOPY [address] [place] [phone] Chris Orosco MD [address] [place] [address] 12/05/2024 8:01 AM EDT - 12/05/2024 8:31 AM EDT Surgery [facility] ENDOSCOPY [address] [place] [phone] Chris Orosco MD [address] [place] [phone] EGD Scheduled Procedures Name Priority Associated Diagnoses [...] documented as of this encounter Care Teams Monitoring Manager Relationship Specialty Start Date End Date Enedina Mcguire NP [address] [place] [address] PCP - General Internal Medicine 10/05/24 documented as of this encounter
--- OUTSIDE RECORDS SUMMARY | 2024-11-06 08:30 | XMS_ITS | Encounter Summary ---
Author Organization [facility] Address [facility] [place] [address] Care Team Providers Care Roulette Dealer Name Role Phone Enedina Mcguire NP Primary Care Provider [phone] Source Comments This information has been disclosed [...] release of HIV test results or diagnoses. [id number] Health Encounter Details Date Type Department Care Team (Late st Contact Info) Description 10/20/[address] [facility] [address] [place] [address] Abdulkadir Gaspar MD [address] [facility] [address] [place] [address] Social History Tobacco Use Types Packs/Day Years Used Date Smoking Tobacco: Former Cigarettes Smokeless Tobacco: Current Alcohol Use Standard Drinks/Week Comments Yes 0 (1 standard drink = 0.6 oz pure alcohol) History of alcohol abuse, reports no use in 3 week- typically endorses use as 4 glasses of wine a days Utilities Answer Date Recorded In the past 12 months has [employer], gas, oil, or water company threatened to [...] any time in the past 12 m [facility], were you homeless or living in a [...] Hospital Encounter [facility] ENDOSCOPY [address] [place] [address] Chris Orosco MD [address] [place] [phone] 12/05/2024 8:01 AM EDT - 12/05/2024 8:31 AM EDT Surgery [facility] ENDOSCOPY [address] [place] [address] Chris Orosco MD [address] [place] [address] EGD Scheduled Procedures Name Priority Associated Diagnoses [...] LAB BLOOD ORDERABLES Final Resul t [facility] [address] [facility] [place] [address] * [facility] - ABO Typing Report (10/20/2024 5:03 PM EDT) 10/20/2024 5:03 PM EDT us Abdulkadir Hubert ABDULLAHI LAB BLOOD ORDERABLES Final Resul t [facility] [address] [place] [address] documented in this encounter Visit Diagnoses Not on filedocumented in this encounter Additional Health Concerns Infection Onset Date Last Indicated Resolved Time C. difficile 09/09/2024 09/09/2024 10/27/2024 8:30 AM EDT Assessment Noted Time PHQ-9 Depression Total Score: 17 025 11:00 AM EDT documented as of this encounter Care Teams Roulette Dealer Relationship Specialty Start Date End Date Enedina Mcguire NP [address] [place], [place] [phone] PCP - General Internal Medicine 10/05/24 documented as of this encounter
--- OUTSIDE RECORDS SUMMARY | 2024-11-06 08:30 | XMS_ITS | Encounter Summary ---
Author Organization [facility] Address [address] [place] [address] Care Team Providers Care Quality Assurance Monitor Body Name Role Phone Enedina Mcguire NP Primary Care Provider + [phone] Maureen Pantoja RN Unavailable Unavail able Source [...] release of HIV test results or diagnoses. [id number] Health Encounter Details Date Type Department Care Team (Late st Contact Info) Description 11/04/2024 Results Follow-Up [facility] Liver Transplant at [address] [address] Maureen Pantoja, ЮЛИЯ Tacrolimus level, Hepatic Function Panel, Renal Function Panel w/EGFR, Additional followed-up results: 3 Social History Tobacco Use Types Packs/Day Years Used Date Smoking Tobacco: Former Cigarettes Smokeless Tobacco: Current Alcohol Use Standard Drinks/Week Comments Yes 0 (1 standard drink = 0.6 oz pure alcohol) History of alcohol abuse, reports no use in 3 week- typically endorses use as 4 glasses of wine a days Utilities Answer Date Recorded In the past 12 months has [employer], gas, oil, or water [employer] threatened to shut off services in your [...] 12/05/2024 8:01 AM EDT Hospital Encounter [facility] ENDOSCOPY [address] [place] [address] Chris Orosco MD [address] [place] [phone] 12/05/2024 8:01 AM EDT - 12/05/2024 8:31 AM EDT Surgery [facility] ENDOSCOPY [address] [place] [phone] Chris Orosco MD [address] [place] [phone] EGD Scheduled Procedures Name Priority Associated Diagnoses Date/Ti me EGD Cirrhosis of liver with ascites, unspecified hepatic cirrhosis type ([facility]) 12/05/2024 8:01 AM EDT documented as of this encounter Visit Diagnoses Not on filedocumented in this encounter Additional Health Concerns Infection Onset Date Last Indicated Resolved Time 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
--- OUTSIDE RECORDS SUMMARY | 2024-11-06 08:30 | XMS_ITS | Encounter Summary ---
Author Organization [facility] Address [address] [place] [address] Care Team Providers Care Cna Ltc Name Role Phone Enedina Mcguire NP Primary Care Provider + [phone] Maureen Pantoja RN Unavailable Unavail able Source [...] release of HIV test results or diagnoses. [id number] Reason for Visit * Reason Comments Transplant Review Encounter Details Date Type Department Care Team (Late st Contact Info) Description 10/27/2024 Pharmacy Services [facility] [address] [place] [phone] Opal Cox, TaniD Social History Tobacco Use Types Packs/Day Years Used Date Smoking Tobacco: Former Cigarettes Smokeless Tobacco: Current Alcohol Use Standard Drinks/Week Comments Yes 0 (1 standard drink = 0.6 oz pure alcohol) History of alcohol abuse, reports no use in 3 week- typically endorses use as 4 glasses of wine a days Utilities Answer Date Recorded In the past 12 months has [employer], gas, oil, or water [employer] threatened to shut off services in your [...] Vilchis RN documented as of this encounter Progress Notes * Opal Cox PharmD - 10/27/2024 3:27 PM EDT Transitions of Care Patient's prescriptions were sent to [facility] Discharge Pharmacy for a Transplant benefits review. Julien Anderson received a Kidney/Liver Transplant on 10/26-10/27/[address] [facility]. The patient's discharge medications were sent to [facility] Discharge Pharmacy for anticipated discharge of 11/03/24. The patient has a [employer] [facility] commercial insurance plan to cover prescriptions. Currently, the patient's co-pay for all medications is listed below: Acetaminophen 325 mg - $4 Alcohol swabs - $0 Aspiring 81mg - $4 Atovaquone 750 mg/5 ml - $0 Dexcom G7 Equipment Installation Professional- $0 Dexcom G7 Sensor- $0 Eliquis 2.5mg - $0 Ergocalciferol 1250 mcg - $0 Famotidine 20mg- $0 Fluconazole 200mg - $0 Fiasp- $0 Novolin N - $0 Methocarbamol - $0 Mycophenolate 250 mg - [facility] - Delivery scheduled with Miralax Powder - $4 Prednisone - $0 Senna-docusate - $4 Sulfamethoxazole - Trimethoprim 400-80 mg - $0 Tacrolimus 1 mg - [facility]- Delivery scheduled with Valganciclovir 450 mg - $0 Accu-Chek Guide Meter - $0 Accu-Chek Guide Test Strips - $0 Sofclix Lancets - $0 Pen needles - $0 Specialty Pharmacy Requirements: Name of Pharmacy: [facility] Special[facility] Phone Number: Prescriptions Transferred at Discharge Date: The patient could have potential eligibility for the pharmaceutical company medication assistance program for each of these medications. Mr Anderson's total cost of discharge prescriptions is currently $16. This total is subject to changewith the addition or change in any of the prescriptions sent to [facility] Discharge Pharmacy. A call was placed to Mr Anderson's room to discuss total cost amount from above and encourage patientto set up profile with [facility] Special[facility]. [facility] confirmed delivery of immunosuppressants to primary residence on 10/31/24. The patient will be informed that payment will need to be available by early afternoon on the day of discharge. Medication Discharge Service will deliver all medications that they are able to fill to patient's bedside prior to discharge from hospital. Transplant team will provide education to the patient priorto discharge from the hospital. The patient has been referred to the [facility] Transplant Team. The patient should visit Medication Access for assistance if problems arise with the prescriptions. If questions arise regarding discharge medications, please call [phone]. Opal Cox Pharm D Transitions of Care [phone] documented in this encounter Plan of Treatment Upcoming Encounters Date Type Department Care Team (Late st Contact Info) Description 12/05/2024 8:01 AM EDT Hospital Encounter [facility] ENDOSCOPY [address] [place] [phone] Chris Orosco MD [address] [place] [phone] 12/05/2024 8:01 AM EDT - 12/05/2024 8:31 AM EDT Surgery [facility] ENDOSCOPY [address] [place] [phone] Chris Orosco MD [address] [place] [phone] EGD Scheduled Procedures Name Priority Associated Diagnoses [...] documented as of this encounter Care Teams Cna Ltc Relationship Specialty Start Date End Date Enedina Mcguire NP [address] [place] [address] PCP - General Internal Medicine 10/05/24 Maureen Pantoja, ЮЛИЯ Txp Post Coordinator Transplant Hepatology 10/28/24 documented as of this encounter
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
--- OUTSIDE RECORDS SUMMARY | 2024-11-06 08:30 | XMS_ITS | Encounter Summary ---
Author Organization [facility] Address [address] [place] [address] Care Team Providers Care Research Animal Attendant Name Role Phone Enedina Mcguire NP Primary Care Provider + [phone] Maureen Pantoja RN Unavailable Unavail able Source [...] release of HIV test results or diagnoses. [id number] Reason for Visit * Reason Comments Results Encounter Details Date Type Department Care Team (Late st Contact Info) Description 11/04/2024 Telephone [facility]plant at [address] [phone] Maureen Pantoja, RN Results Social History Tobacco Use Types Packs/Day Years Used Date Smoking Tobacco: Former Cigarettes Smokeless Tobacco: Current Alcohol Use Standard Drinks/Week Comments Yes 0 (1 standard drink = 0.6 oz pure alcohol) History of alcohol abuse, reports no use in 3 week- typically endorses use as 4 glasses of wine a days Utilities Answer Date Recorded In the past 12 months has [employer], gas, oil, or water [employer] threatened to shut off services in your [...] [place] [facility] ([facility])? No 10/29/2024 Yearly Questionnaire Answer [...] as of this encounter Progress Notes * Maureen Pantoja RN - 11/04/2024 4:01 PM EDT Lab results from 11/04/24 reviewed. Renal panel stable. Alk phos 133 (from 126) and AST/ALT (from ). FK 9.0 CBC/diff pending?? Will follow-up. Current IS: FK increased to 6 mg BID during clinic visit today - results do not reflect this change MMF 500 mg BID Prednisone 20 mg daily Will continue to monitor as per previously determined lab intervals. documented in this encounter Miscellaneous Notes * Telephone Encounter - Maureen Pantoja RN - 11/05/2024 5:30 AM EDT CBC/diff stable. * Telephone Encounter - Maureen Pantoja RN - 11/05/2024 5:29 AM EDT CBC/diff stable. documented in this encounter Plan of Treatment Upcoming Encounters Date Type Department Care Team (Late st Contact Info) Description 12/05/2024 8:01 AM EDT Hospital Encounter [facility] ENDOSCOPY [address] [place] [phone] Chris Orosco MD [address] [place] [phone] 12/05/2024 8:01 AM EDT - 12/05/2024 8:31 AM EDT Surgery [facility] ENDOSCOPY [address] [place] [phone] Chris Orosco MD [address] [place] [phone] EGD Scheduled Procedures Name Priority Associated Diagnoses [...] as of this encounter Care Teams Research Animal Attendant Relationship Specialty Start Date End Date Enedina Mcguire NP [address] [place] [address] PCP - General Internal Medicine 10/05/24 Maureen Pantoja, ЮЛИЯ Txp Post Coordinator Transplant Hepatology 10/28/24 documented as of this encounter
--- OUTSIDE RECORDS SUMMARY | 2024-11-06 08:30 | XMS_ITS | Encounter Summary ---
Author Organization [facility] Address [address] [place] [address] Care Team Providers Care Seamer Elastic Band Name Role Phone Enedina Mcguire NP Primary Care Provider [phone] Source Comments This information has been disclosed [...] release of HIV test results or diagnoses. [id number] Health Encounter Details Date Type Department Care Team (Late st Contact Info) Description 10/27/2024 Chart Note [facility] Kidney Transplant at [address] [place] [phone] Karen Rosen, RN I have verified that the donor serologies entered in [facility] match the donor Social History Tobacco Use Types Packs/Day Years Used Date Smoking Tobacco: Former Cigarettes Smokeless Tobacco: Current Alcohol Use Standard Drinks/Week Comments Yes 0 (1 standard drink = 0.6 oz pure alcohol) History of alcohol abuse, reports no use in 3 week- typically endorses use as 4 glasses of wine a days Utilities Answer Date Recorded In the past 12 months has [employer], gas, oil, or water [employer] threatened to shut off services in your [...] as of this encounter Progress Notes * Karen Rosen RN - 10/27/2024 12:20 PM EDT I have verified that the donor serologies entered in [employer] match the donor serologies that are listed in [facility]. documented in this encounter Plan of Treatment Upcoming Encounters Date Type Department Care Team (Late st Contact Info) Description 12/05/2024 8:01 AM EDT Hospital Encounter [facility] ENDOSCOPY [address] [place] [address] Chris Orosco MD [address] [place] [address] 12/05/2024 8:01 AM EDT - 12/05/2024 8:31 AM EDT Surgery [facility] ENDOSCOPY [address] [place] [address] Chris Orosco MD [address] [place] [phone] EGD Scheduled Procedures Name Priority Associated Diagnoses [...] documented as of this encounter Care Teams Seamer Elastic Band Relationship Specialty Start Date End Date Enedina Mcguire NP [address] [place] [address] PCP - General Internal Medicine 10/05/24 documented as of this encounter
--- OUTSIDE RECORDS SUMMARY | 2024-11-06 08:32 | XMS_ITS | Encounter Summary ---
Author Organization [facility] Address [address] [place] [address] Care Team Providers Care Plastic Sheeting Cutter Name Role Phone Enedina Mcguire NP Primary Care Provider [phone] Source Comments This information has been disclosed [...] release of HIV test results or diagnoses. [id number] Encounter Details Date Type Department Care Team (Late st Contact Info) Description 10/17/2024 Pharmacy Services [facility] Discharge Pharmacy [address] [place] [phone] Qu, Ridge, RPh Social History Tobacco [...] Recorded In the past 12 months has [employer], gas, oil, or water company threatened [...] this encounter Progress Notes * Ridge Menjivar, [facility] - 10/17/2024 9:47 AM EDT Julien Anderson [...] member, friend, or other person (including a division officer weapons department). The at-risk individual reports no known sensitivity [...] [facility] ENDOSCOPY [address] [place] [phone] Chris Orosco MD [address] [place] [phone] 12/05/2024 8:01 AM EDT - 12/05/2024 8:31 AM EDT Surgery [facility] ENDOSCOPY [address] [place] [phone] Chris Orosco MD [address] [place] [phone] EGD Scheduled Procedures Name Priority Associated Diagnoses Date/Ti me EGD Cirrhosis of liver with ascites, unspecified hepatic cirrhosis type ([facility]) 12/05/2024 8:01 AM EDT documented as of this encounter Visit Diagnoses Not on filedocumented in this encounter Additional Health Concerns Infection Onset Date Last Indicated Resolved Time C. difficile 09/09/2024 09/09/2024 10/27/2024 8:30 AM EDT Assessment Noted Time PHQ-9 Depression Total Score: 17 025 11:00 AM EDT documented as of this encounter Care Teams Plastic Sheeting Cutter Relationship Specialty Start Date End Date Enedina Mcguire NP [address] [place] [address] PCP - General Internal Medicine 10/05/24 documented as of this encounter
--- OUTSIDE RECORDS SUMMARY | 2024-11-06 08:32 | XMS_ITS | Encounter Summary ---
Author Organization [facility] Address [address] [place] [address] Care Team Providers Care Mergers And Acquisitions Associate Name Role Phone Enedina Mcguire NP Primary Care Provider + [phone] Maureen Pantoja RN Unavailable Unavail able Source [...] release of HIV test results or diagnoses. [id number] Health Encounter Details Date Type Department Care Team (Late st Contact Info) Description 11/03/2024 Chart Note [facility] Liver Transplant at [address] [place] [phone] Hillary Fernandes, TaniD Liver Transplant Pharmacy Discharge Note Social History Tobacco Use Types Packs/Day Years Used Date Smoking Tobacco: Former Cigarettes Smokeless Tobacco: Current Alcohol Use Standard Drinks/Week Comments Yes 0 (1 standard drink = 0.6 oz pure alcohol) History of alcohol abuse, reports no use in 3 week- typically endorses use as 4 glasses of wine a days Utilities Answer Date Recorded In the past 12 months has e [employer], gas, oil, or water [employer] threatened to shut off services in your [...] in a senior care (including now)? No 10/29/2024 Yearly Questionnaire Answer [...] as of this encounter Progress Notes * Hillary Fernandes, PharmD - 11/03/2024 1:27 PM EDT Images from the original note were not included. Liver Transplant Pharmacy Discharge Note Name: Julien Anderson Transplant date: 10/27/2024 (Kidney), 10/26/2024 (Liver) Transplant type: SLK Primary disease: ETOH Discharge date: 11/02/24 Discharge location: Home CMV status:D-/R+ EBV status: D+/R+ Toxo status:D-/R- Study: None Pain protocol: B Donor HCV Serologies: Anti-HCV Negative, HCV KIANA Negative Donor HBV Serologies: HBcAb Negative, HBV KIANA Negative Vitamin D level: 7.1 Immunosuppression: Standard Discharge Medications: Maintenance Immunosuppression Comment Immunosuppressions Medications Glucocorticoids predniSONE (DELTASONE) 5 MG tablet Sig - Route: Take 4 tablets (20 mg total) by mouth daily. - Oral Notes to Pharmacy: Do not adjust pill strength; medication titratable Immunosuppressive - Calcineurin Inhibitors tacrolimus (PROGRAF) 1 MG capsule Sig - Route: Take 6 capsules (6 mg total) by mouth 2 times a day. Use as directed - Oral Notes to Pharmacy: Do not adjust pill strength; medication titratable Immunosuppressive - Inosine Monophosphate Dehydrogenase Inhibitors mycophenolate (CELLCEPT) 250 mg capsule Sig - Route: Take 2 capsules (500 mg total) by mouth 2 times a day. - Oral Notes to Pharmacy: Do not adjust pill strength; medication titratable Lab Results Component Value Date/Time TACROLMSLCMS 7.4 11/02/2024 0553 Fk reflects 5mg/4mg Trough Goals: 10-12 ng/mL PJP Prophylaxis Per Protocol Stop Date Bactrim 3 months from start date: 01/26/2025 Antiviral Prophylaxis Per Protocol Stop Date Valganciclovir 3 months from start date: 01/26/2025 Antifungal Prophylaxis Per Protocol Stop Date Fluconazole (Diflucan) - INDICATION: pRBC >10 FYI, initially Qtc prolonged during admission (>600ms). Qtc <460 ms since starting fluconazole prior to discharge. Recommend repeat EKG if adding new Qtc prolonging agents. 1 month from start date: 11/25/2024 Extended VTE Prophylaxis Per Protocol Stop Date Based on Caprini Score of 10, extended prophylaxis recommended with Apixaban 2.5 mg PO BID 30 days from start date: 11/25/2024 Antidiabetic Medications NOT Diabetic prior to OLT Diabetes Medications Insulin Analogs - Rapid Acting insulin aspart, niacinamide, (FIASP FLEXTOUCH U-100 INSULIN) 100 unit/mL (3 mL) InPn Sig: Administer insulin with meals per sliding scale: Blood glucose 150-199 mg/dL =2 units, Blood glucose 200-249 mg/dL =4 units, Blood glucose 250-299 mg/dL =7 units, Blood glucose 300-349 mg/dL =10units, Blood glucose greater than 349 mg/dL = 12 units Complete Medication List: Outpatient Medications as of 11/03/2024 Directions acetaminophen (TYLENOL) 325 MG tablet Take 3 [...] blood-glucose meter (TRUE METRIX GLUCOSE METER) [facility] Use to test blood [...] as needed for up to 7 days. Pain was not appropriately controlled with oxycodone. Per provider, increase to Dilaudid. insulin aspart, niacinamide, (FIASP FLEXTOUCH U-100 INSULIN) 100 unit/mL (3 mL) InPn Administer insulin with meals per sliding scale: Blood glucose 150-199 mg/dL =2 units, Blood glucose 200-249 mg/dL=4 units, Blood glucose 250-299 mg/dL =7 units, Blood glucose 300-349 mg/dL =10 units, Blood glucose greater than 349 mg/dL = 12 units lancets (ACCU-CHEK SOFTCLIX LANCETS) [facility] Use to test blood sugar up to 4 times a day. levothyroxine (SYNTHROID) 75 MCG tablet Take 1 tablet (75 mcg total) by mouth every morning before breakfast. linezolid (ZYVOX) 600 mg tablet Take 1 tablet (600 mg total) by mouth 2 times a day. Started on 11/02 for urine culture with VRE. Patient discharged with 14 day supply. Recommend reducing duration to 7 days (last day 11/09). Risk of cytopenia with prolong exposure loratadine (CLARITIN) 10 mg tablet Take 1 tablet (10 mg total) by mouth daily as needed for Allergies (itching). methocarbamoL (ROBAXIN) 500 MG tablet Take 2 tablets (1,000 mg total) by mouth 3 times a day. mycophenolate (CELLCEPT) 250 mg capsule Take 2 capsules (500 mg total) by mouth 2 times a day. naloxone (NARCAN) 4 mg/actuation Rodey Apply 1 spray in one nostril if needed. Call 911. May repeat dose in other nostril if no response in 3 minutes. NIFEdipine (PROCARDIA-XL) 30 MG (OSM) 24 hr tablet Take 1 tablet (30 mg total) by mouth daily. New start pen needle, diabetic 32 gauge x Ndle [...] tablet (450 mg total) by mouth daily. The following home medications were discontinued in hospital: ciprofloxacin HCl 500 MG tablet Commonly known [...] (220 mg) capsule Commonly known as: ZINCATE [SLK only] Renal Function on discharge: SCr pre-transplant: 2.7 mg/dL SCr on day of discharge: 1.08 mg/dL Need for renal replacement therapy within first 7 days of transplant: no Need for renal replacement therapy at discharge: no Rejection during txp hospitalization (+ treatment given, where applicable): None The following issues are to be addressed as an outpatient: Tani BeltranD, BCTXP Solid Organ Transplant Clinical Specialist Contact via [employer] documented in this encounter Plan of Treatment Upcoming Encounters Date Type Department Care Team (Late st Contact Info) Description 12/05/2024 8:01 AM EDT Hospital Encounter [facility] ENDOSCOPY [address] [place] [phone] Chris Orosco MD [address] [place] [phone] 12/05/2024 8:01 AM EDT - 12/05/2024 8:31 AM EDT Surgery [facility] ENDOSCOPY [address] [place] [phone] Chris Orosco MD [address] [place] [phone] EGD Scheduled Procedures Name Priority Associated Diagnoses [...] documented as of this encounter Care Teams Mergers And Acquisitions Associate Relationship Specialty Start Date End Date Enedina Mcguire NP [address] [place] [address] PCP - General Internal Medicine 10/05/24 Maureen Pantoja, RN Txp Post Coordinator Transplant Hepatology 10/28/24 documented as of this encounter
--- OUTSIDE RECORDS SUMMARY | 2024-11-06 08:32 | XMS_ITS | Encounter Summary ---
Author Organization [facility] Address [address] [place] [id number] Care Team Providers Care Custodial Laborer Name Role Phone Enedina Mcguire NP Primary Care Provider + [phone] Maureen Pantoja RN Unavailable Unavail able Source [...] release of HIV test results or diagnoses. [id number] Health Encounter Details Date Type Department Care Team (Late st Contact Info) Description 10/29/2024 Education Chart Note [facility] Liver Transplant at [address] [place] [phone] Crista Power, RN Social History Tobacco Use Types Packs/Day Years Used Date Smoking Tobacco: Former Cigarettes Smokeless Tobacco: Current Alcohol Use Standard Drinks/Week Comments Yes 0 (1 standard drink = 0.6 oz pure alcohol) History of alcohol abuse, reports no use in 3 week- typically endorses use as 4 glasses of wine a days Utilities Answer Date Recorded In the past 12 months has [employer], gas, oil, or water [employer] threatened to shut off services in [...] of this encounter Progress Notes * Crista A Tono, RN - 10/29/2024 2:22 PM EDT Education - Discharge: Post-Transplant Education and discharge planning discussed with patient and caregiver team including , Abdiaziz, MIL, BOO, dad, and brother Brown on the phone. Primary support will be provided by [employer]. The time spent educating was 60 minutes discussing the following topics, including but not limited to: 1. Immunosuppression Precautions [x] 2. Immunosuppression Medications - action, dose, route, side effects [x] 3. Anti-Infective medications - action, dose, route, side effects, length of therapy [x] 4. Signs and symptoms of Infection/Rejection [x] 5. When to call primary care coordinator [x] 6. Outpatient follow up including frequency of clinic visits and lab draws [x] 7. How to care for the transplant incision [x] 8. Completing the daily log including temperature, heart rate, blood pressure and blood glucose parameters [x] 9. Activity restrictions including sun exposure precautions, travel restrictions, pet safety, plants and gardening restrictions [x] 10. Importance of routine medical screenings and exams with other providers [x] 11. Understanding emotions follow transplant [x] 12. Importance of using the medication card and pill organizer to develop a system for medication administration. [x] 13. Enforced education on bring their medication card and daily log to each outpatient clinic visit. [x] [] Patient and caregiver(s) were attentive and receptive to learning, and asked appropriate questions.I encouraged all to review written materials and watch transplant education videos to reinforce theeducation provided today. Also provided written educational materials for reference, contact phone numbers and encouraged all to call with questions/concerns. The multidisciplinary transplant team and I will continue to assist this patient and caregiver team with discharge planning/education based on patient's medical condition. I will ensure the following and other items as necessary: 1. Appropriate and timely coordination of transplant care and education. 2. Collaborate with inpatient transplant team to ensure smooth transition to home or rehab facility. 3. If patient is discharged to rehab facility will arrange pharmacy education and pillbox packing in the outpatient setting prior to discharge home. 4. Arrange all outpatient transplant clinic follow up as appropriate. 5. Communicate progress of care coordination with the transplant team and notify of any challenges/obstacles that might delay discharge. Julien Anderson has very good social support with a very good understanding of information provided. No barriers to discharge identified. Medication times 0900/2100. Julien Anderson has to use [facility]. Meds are getting delivered 10/31/24. documented in this encounter Plan of Treatment Upcoming Encounters Date Type Department Care Team (Late st Contact Info) Description 12/05/2024 8:01 AM EDT Hospital Encounter [facility] ENDOSCOPY [address] [place] [address] Chris Orosco MD [address] [place] [phone] 12/05/2024 8:01 AM EDT - 12/05/2024 8:31 AM EDT Surgery [facility] ENDOSCOPY [address] [place] [address] Chris Orosco MD [address] [place] [phone] EGD Scheduled Procedures Name Priority Associated Diagnoses Date/Ti me EGD Cirrhosis of liver with ascites, unspecified hepatic cirrhosis type ([facility]) 12/05/2024 8:01 AM EDT documented as of this encounter Visit Diagnoses Not on filedocumented in this encounter Additional Health Concerns Assessment Noted Time PHQ-9 Depression Total Score: 17 025 11:00 AM EDT documented as of this encounter Care Teams Custodial Laborer Relationship Specialty Start Date End Date Enedina Mcguire NP [address] [place] [phone] PCP - General Internal Medicine 10/05/24 Maureen Pantoja, ЮЛИЯ Txp Post Coordinator Transplant Hepatology 10/28/24 documented as of this encounter
--- OUTSIDE RECORDS SUMMARY | 2024-11-06 08:32 | XMS_ITS | Encounter Summary ---
Author Organization [facility] Address [address] [place] [id number] Care Team Providers Care Copy Worker Name Role Phone Enedina Mcguire NP Primary Care Provider + [phone] Maureen Pantoja RN Unavailable Unavail able Source [...] release of HIV test results or diagnoses. [id number] Health Encounter Details Date Type Department Care Team (Late st Contact Info) Description 11/03/2024 Telephone [facility] Liver Transplant at [address] [place] [phone] Marisela Martinez MA Social History Tobacco Use Types Packs/Day Years Used Date Smoking Tobacco: Former Cigarettes Smokeless Tobacco: Current Alcohol Use Standard Drinks/Week Comments Yes 0 (1 standard drink = 0.6 oz pure alcohol) History of alcohol abuse, reports no use in 3 week- typically endorses use as 4 glasses of wine a days Utilities Answer Date Recorded In the past 12 months has [employer], gas, oil, or water [employer] threatened to shut off services in your [...] as of this encounter Progress Notes * Marisela Martinez MA - 11/03/2024 10:31 AM EDT Spoke to pt he will have his labs drawn at [facility] prior to clinic on 11/03. documented in this encounter Plan of Treatment Upcoming Encounters Date Type Department Care Team (Late st Contact Info) Description 12/05/2024 8:01 AM EDT Hospital Encounter [facility] ENDOSCOPY [address] [place] [address] Chris Orosco MD [address] [place] [phone] 12/05/2024 8:01 AM EDT - 12/05/2024 8:31 AM EDT Surgery [facility] ENDOSCOPY [address] [place] [address] Chris Orosco MD [address] [place] [phone] EGD Scheduled Procedures Name Priority Associated Diagnoses [...] documented as of this encounter Care Teams Copy Worker Relationship Specialty Start Date End Date Enedina Mcguire NP [address] [place] [id number] PCP - General Internal Medicine 10/05/24 Pantoja, Maureen Leeanna, RN Txp Post Coordinator Transplant Hepatology 10/28/24 documented as of this encounter
--- OUTSIDE RECORDS SUMMARY | 2024-11-06 08:34 | XMS_ITS | Clinical Summary ---
Author Organization [facility] Address [facility] [place] [address] Care Team Providers Care Outdoor Adventure Instructor Name Role Phone Enedina Mcguire NP Primary Care Provider + [phone] Maureen Pantoja RN Unavailable Unavail able Source [...] therelease of HIV test results or diagnoses. [id number] Allergies Active Allergy Reactions Criticality Noted Date Comments Adhesive Itching,Rash Medium 11/25/2023 Tegaderm adhesive on Ivs, pt states its tolerable Duloxetine Other (See Comments) Low 11/15/2023 Became Manic Medications levothyroxine (SYNTHROID) 75 MCG tablet Take 1 tablet (75 mcg total) by mouth every morning before breakfast. Active loratadine (CLARITIN) 10 mg tablet Take 1 tablet (10 mg total) by mouth daily as needed for Allergies (itching). 30 tablet 10/18/19 25 10:24 AM EDT 025 Active FLUoxetine (PROZAC) 20 MG capsule Take 1 capsule (20 mg total) by mouth daily. 30 capsule 2 10/18/19 25 10:24 AM EDT 025 Active naloxone (NARCAN) 4 mg/actuation [place] Apply 1 spray in one nostril if needed. Call 911. May repeat dose in other nostril if no response in 3 minutes. 2 each 1 10/18/19 10:25 AM EDT Active ergocalciferol (ERGOCALCIFERO L) 1,250 mcg (50,000 unit) capsule Take 1 capsule (50,000 Units total) by mouth once a week. 4 capsule 2 11/03/19 10:20 AM EDT Active sulfamethoxazo le-trimethopri m (BACTRIM) 400-80 mg per tablet Take 1 tablet by mouth daily. 30 tablet 2 11/03/19 10:20 AM EDT 025 Active predniSONE (DELTASONE) 5 MG tablet Take 4 tablets (20 mg total) by mouth daily. 120 tablet 2 11/03/19 10:20 AM EDT 025 Active valGANciclovir (VALCYTE) 450 mg tablet Take 1 tablet (450 mg total) by mouth daily. 30 tablet 2 11/03/19 10:20 AM EDT 025 Active acetaminophen (TYLENOL) 325 MG tablet Take 3 tablets (975 mg total) by mouth every 8 hours. 200 tablet 11/03/19 10:20 AM EDT Active famotidine (PEPCID) 20 MG tablet Take 1 tablet (20 mg total) by mouth 2 times a day. 60 tablet 2 11/03/19 10:20 AM EDT 025 Active senna-docusate (SENNOSIDES-DO CUSATE SODIUM) 8.6-50 mg per tablet Take 1 tablet by mouth at bedtime as needed for Constipation. 30 tablet 11/03/19 10:20 AM EDT 025 Active polyethylene glycol (GLYCOLAX) 17 gram/dose powder Mix one capful (17 grams) in 8 ounces of liquid and drink by mouth daily as needed (Constipation). 238 g 11/03/19 10:20 AM EDT 025 Active pen needle, diabetic 32 gauge x 5/32 Ndle For use with insulin pen. Use as instructed. 100 each 2 11/03/19 10:20 AM EDT 025 Active alcohol swabs PadM Use as instructed. 200 each 1 11/03/19 10:20 AM EDT Active blood-glucose meter (TRUE METRIX GLUCOSE METER) [facility] Use to test blood sugar up to 4 times a day. 1 each 11/03/19 10:20 AM EDT Active blood sugar diagnostic (GLUCOSE BLOOD) Strp Use to test blood sugar up to 4 times a day. 100 strip 11/03/19 10:20 AM EDT Active lancets (ACCU-CHEK SOFTCLIX LANCETS) [facility] Use to test blood sugar up to 4 times a day. 100 each 11/03/19 10:20 AM EDT Active insulin aspart, niacinamide, (FIASP FLEXTOUCH U-100 INSULIN) 100 unit/mL (3 mL) InPn Administer insulin with meals per sliding scale: Blood glucose 150-199 mg/dL =2 units, Blood glucose 200-249 mg/dL =4 units, Blood glucose 250-299 mg/dL =7 units, Blood glucose 300-349 mg/dL =10 units, Blood glucose greater than 349 mg/dL = 12 units 15 mL 2 11/03/19 10:20 AM EDT Active mycophenolate (CELLCEPT) 250 mg capsule Take 2 capsules (500 mg total) by mouth 2 times a day. 120 capsule Active methocarbamoL (ROBAXIN) 500 MG tablet Take 2 tablets (1,000 mg total) by mouth 3 times a day. 180 tablet 11/03/19 10:20 AM EDT Active gabapentin (NEURONTIN) 100 MG capsule Take 1 capsule (100 mg total) by mouth 3 times a day. 90 capsule 11/03/19 10:20 AM EDT 025 Active NIFEdipine (PROCARDIA-XL) 30 MG (OSM) 24 hr tablet Take 1 tablet (30 mg total) by mouth daily. 30 tablet 11/03/19 10:20 AM EDT Active torsemide (DEMADEX) 20 MG tablet Take 1 tablet (20 mg total) by mouth daily. 30 tablet Active apixaban (ELIQUIS) 2.5 mg Tab Take 1 tablet (2.5 mg total) by mouth 2 times a day for 24 days. Last dose 11/26/24 48 tablet 11/03/19 10:20 AM EDT 025 2024 Active fluconazole (DIFLUCAN) 200 MG tablet Take 1 tablet (200 mg total) by mouth daily for 24 days. Last day 11/26/24 24 tablet 11/03/19 25 10:20 AM EDT 025 2024 Active linezolid (ZYVOX) 600 mg tablet Take 1 tablet (600 mg total) by mouth 2 times a day. 28 tablet 11/03/19 3:06 PM EDT Active tacrolimus (PROGRAF) 1 MG capsule Take 6 capsules (6 mg total) by mouth 2 times a day. Use as directed 600 capsule 5 Active HYDROmorphone (DILAUDID) 2 MG tabletIndicati ons:Abdominal pain, unspecified abdominal location Take 1 tablet (2 mg total) by mouth every 6 hours as needed for up to 7 days. 28 tablet 025 2024 Active magnesium chloride (SLOW MAG) 71.5 mg TbECIndication s:hypomagnesem ia Take 2 tablets (143 mg total) by mouth 3 times a day. Indications: hypomagnesemia 180 tablet 2 025 2024 Active folic acid (FOLVITE) 1 MG tablet Take 1 tablet (1 mg total) by mouth daily. 2024 Discontinued(S top Taking at Discharge) pantoprazole (PROTONIX) 40 MG tablet Take 1 tablet (40 mg total) by mouth every morning before breakfast. 2024 Discontinued(S top Taking at Discharge) traMADoL (ULTRAM) 50 mg tablet Take 1 tablet (50 mg total) by mouth every 12 hours as needed for Pain (Pain). 2024 Discontinued(S top Taking at Discharge) lactulose (CHRONULAC) 10 gram/15 mL solution Take 30 mLs (20 g total) by mouth 3 times a day as needed (goal 2-3 bowel movements a day). 2838 mL 08/20/19 1:23 PM EDT 025 2024 Discontinued(S top Taking at Discharge) rifAXIMin (XIFAXAN) 550 mg Tab tablet Take 1 tablet (550 mg total) by mouth 2 times a day. 60 tablet 08/20/19 1:23 PM EDT 025 2024 Discontinued(R efill / Reorder) zinc sulfate (ZINCATE) 50 mg zinc (220 mg) capsule Take 1 capsule (220 mg total) by mouth daily. 60 capsule 08/20/19 1:23 PM EDT 025 2024 Discontinued(S top Taking at Discharge) sodium bicarbonate 650 MG tablet Take 2 tablets (1,300 mg total) by mouth 3 times a day. 90 tablet 08/20/19 1:23 PM EDT 025 2024 Discontinued(R efill / Reorder) potassium chloride (KLOR-CON M20) 20 MEQ tabletIndicati ons:Hypokalemi a Take 2 tablets (40 mEq total) by mouth daily. 60 tablet 2 025 2024 Discontinued(S top Taking at Discharge) ciprofloxacin HCl (CIPRO) 500 MG tablet Take 1 tablet (500 mg total) by mouth daily. 30 tablet 09/10/19 3:56 PM EDT 025 2024 Discontinued(R efill / Reorder) ursodioL (ACTIGALL) 300 mg capsule Take 1 capsule (300 mg total) by mouth 2 times a day. 60 capsule 09/10/19 3:56 PM EDT 025 2024 Discontinued(R efill / Reorder) thiamine HCl (VITAMIN B-1) 100 MG tablet Take 1 tablet (100 mg total) by mouth daily. 30 tablet 025 2024 Discontinued(S top Taking at Discharge) lactulose (CHRONULAC) 10 gram/15 mL solution Take 30 mLs (20 g total) by mouth 3 times a day. 946 mL 10/18/19 10:24 AM EDT 025 2024 Discontinued(S top Taking at Discharge) methocarbamoL (ROBAXIN) 500 MG tablet Take 1 tablet (500 mg total) by mouth 3 times a day. 90 tablet 06/06/20 25 10:24 AM EDT 025 2024 Discontinued(R efill / Reorder) oxyCODONE (ROXICODONE) 5 MG immediate release tabletIndicati ons:Pain Take 1 tablet (5 mg total) by mouth every 6 hours as needed for up to 3 days. 12 tablet 10/18/19 25 10:24 AM EDT 025 2024 midodrine (PROAMATINE) 10 MG tablet Take 1 tablet (10 mg total) by mouth 3 times a day. 90 tablet 10/18/19 25 10:24 AM EDT 025 2024 Discontinued(S top Taking at Discharge) sodium bicarbonate 650 MG tablet Take 2 tablets (1,300 mg total) by mouth 3 times a day. 90 tablet 2024 Discontinued rifAXIMin (XIFAXAN) 550 mg Tab tablet Take 1 tablet (550 mg total) by mouth 2 times a day. 60 tablet 025 2024 Discontinued(S top Taking at Discharge) ciprofloxacin HCl (CIPRO) 500 MG tablet Take 1 tablet (500 mg total) by mouth daily. 30 tablet 025 2024 Discontinued(S top Taking at Discharge) ursodioL (ACTIGALL) 300 mg capsule Take 1 capsule (300 mg total) by mouth 2 times a day. 60 capsule 025 2024 Discontinued(S top Taking at Discharge) apixaban (ELIQUIS) 2.5 mg Tab Take 1 tablet (2.5 mg total) by mouth 2 times a day. 60 tablet 2024 Discontinued atovaquone (MEPRON) 750 mg/5 mL suspension Take 10 mLs (1,500 mg total) by mouth daily for 30 doses. 300 mL 2 2024 Discontinued(S top Taking at Discharge) fluconazole (DIFLUCAN) 200 MG tablet Take 1 tablet (200 mg total) by mouth daily for 30 days. 30 tablet 025 2024 Discontinued mycophenolate (CELLCEPT) 250 mg capsule Take 2 capsules (500 mg total) by mouth 2 times a day. 120 capsule 2024 Discontinued tacrolimus (PROGRAF) 1 MG capsule Take 10 capsules (10 mg total) by mouth 2 times a day. Use as directed 600 capsule 2024 Discontinued aspirin 81 MG chewable tablet Chew 1 tablet (81 mg total) by mouth daily. 30 tablet 2024 Discontinued(S top Taking at Discharge) methocarbamoL (ROBAXIN) 500 MG tablet Take 1 tablet (500 mg total) by mouth 3 times a day. 90 tablet 2024 Discontinued insulin lispro 100 unit/mL InPn Administer insulin with meals per sliding scale: Blood glucose 150-199 mg/dL =2 units, Blood glucose 200-249 mg/dL =4 units, Blood glucose 250-299 mg/dL =7 units, Blood glucose 300-349 mg/dL =10 units, Blood glucose greater than 349 mg/dL = 12 units 15 mL 2 2024 Discontinued(S top Taking at Discharge) insulin NPH isoph U-100 human 100 unit/mL (3 mL) InPn Inject 5 Units subcutaneously in the morning and at bedtime. 15 mL 2024 Discontinued(S top Taking at Discharge) FREESTYLE NIDA 3 READER Misc Use 1 each as directed. 1 each 2024 Discontinued(S top Taking at Discharge) blood-glucose sensor (FREESTYLE NIDA 3 PLUS SENSOR) Radha Use 1 sensor as directed every 15 days. 2 each 2024 Discontinued(S top Taking at Discharge) DEXCOM G7 ANTHROPOLOGY DEPARTMENT CHAIR Misc Use reader as directed. 1 each 2024 Discontinued(S top Taking at Discharge) DEXCOM G7 SENSOR Radha Use 1 sensor as directed every 10 days. 3 each 2024 Discontinued(S top Taking at Discharge) tacrolimus (PROGRAF) 1 MG capsule Take 10 capsules (10 mg total) by mouth 2 times a day. Use as directed 600 capsule 5 2024 Discontinued apixaban (ELIQUIS) 2.5 mg Tab Take 1 tablet (2.5 mg total) by mouth 2 times a day. Last dose 11/26/24 60 tablet 025 2024 Discontinued sodium bicarbonate 650 MG tablet Take 2 tablets (1,300 mg total) by mouth 2 times a day. 28 tablet 11/03/19 10:20 AM EDT 025 2024 Discontinued(T herapy Completed / No Longer Needed) HYDROmorphone (DILAUDID) 2 MG tabletIndicati ons:Abdominal pain, unspecified abdominal location Take 1 tablet (2 mg total) by mouth every 6 hours as needed for up to 7 days. 28 tablet 11/03/19 10:20 AM EDT 025 2024 Discontinued(R efill / Reorder) tacrolimus (PROGRAF) 1 MG capsule Take 5 capsules (5 mg total) by mouth 2 times a day. Use as directed 600 capsule 5 025 2024 Discontinued tacrolimus (PROGRAF) 1 MG capsule Take 5 capsules (5 mg total) by mouth 2 times a day. 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 with Cipro 500mg daily - HE: [...] Encounters Date Type Department Care Team Description 11/04/2024 10:10 AM EDT Office Visit [facility] Liver Transplant at [address] [place] [address] Leisa Juarez MD Kidney transplant recipient (Primary Dx); Diarrhea of presumed infectious origin; Hypomagnesemia; Hypervolemia, unspecified hypervolemia type; Liver transplant recipient (CMS-HCC); Other hypervolemia; Hyperparathyroidism (CMS-HCC); Nausea and vomiting, unspecified vomiting type 11/04/2024 8:40 AM EDT Office Visit [facility] Liver Transplant at [address] [place] [address] Cosmo Pacheco MD Liver transplant recipient ([facility]) (Primary Dx); Alcoholic cirrhosis of liver with ascites ([facility]); Kidney transplant recipient; Acute kidney injury superimposed on CKD ([facility]); CKD (chronic kidney disease) stage 4, GFR 15-29 ml/min ([facility]); Immunosuppressive management encounter following liver transplant ([facility]); Abdominal pain, unspecified abdominal location 11/04/2024 Telephone [facility] Liver Transplant at [address] [place] [address] Maureen Pantoja, ЮЛИЯ Results 11/04/2024 Results Follow-Up [facility] Liver Transplant at [address] [place] [address] Maureen Pantoja, ЮЛИЯ Tacrolimus level, Hepatic Function Panel, Renal Function Panel w/EGFR, Additional followed-up results: 3 11/04/2024 Social Work [facility] Liver Transplant at [address] [place] [address] Kaylin Willard MSW 11/04/2024 Nutrition [facility] Kidney Transplant at [address] [place] [phone] Ben Weiss, DMITRY 11/03/2024 Chart Note [facility] Liver Transplant at [address] [place] [phone] Hillary Fernandes, [facility] Liver Transplant Pharmacy Discharge Note 11/03/2024 Telephone [facility] Liver Transplant at [address] [place] [address] Marisela Martinez MA 10/31/2024 Orders Only [facility] Liver Transplant at [address] [address] Harvey Domínguez III, MD Liver replaced by transplant ([facility]) (Primary Dx); Immunosuppressive management encounter following liver transplant ([facility]) 10/29/2024 Travel 10/29/2024 Education Chart Note [facility] Liver Transplant at [address] [phone] Crista Power RN 10/27/2024 2:34 AM EDT Anesthesia Event [facility] [address] [place] [phone] Rocky Manning MD Kopel, Lior, MD 10/27/2024 2:00 AM EDT - 10/27/2024 6:54 AM EDT Surgery [facility] [address] [place] [phone] Harvey Domínguez III, MD Donor Kidney Transplant , Back Bench Preparation Donor Kidney, Baseline Kidney transplant biopsy , Insertion of Indwelling Stent , Removal of Perihepatic packing 10/27/2024 Pharmacy Services [facility] Discharge Pharmacy [address] [place] [phone] Opal Cox, Lissett 10/27/2024 Chart Note [facility] Kidney Transplant at [address] [place] [address] Karen Rosen, ЮЛИЯ I have verified that the donor serologies entered in Epic match the donor 10/27/2024 Chart Note [facility] Liver Transplant at [address] [address] Crista Power, RN I introduced myself as inpatient liver/kidney metal flow coordinator, 10/27/2024 Orders Only [facility] Pancreas Transplant at Outpatient [address] [address] Abdulkadir Gaspar MD 10/26/2024 Chart Note [facility] Kidney Transplant at [address] [address] Geri Vasquez RN 10/26/2024 Chart Note [facility] Liver Transplant at [address] [phone] Geri Vasquez RN 10/25/2024 10:54 PM EDT Anesthesia Event [facility] [place] [address] Eber Quinones MD Edwards, Anna, MD 10/25/2024 10:30 PM EDT - 10/26/2024 6:12 AM EDT Surgery [facility] [place] [address] Harvey Domínguez III, MD LIVER TRANSPLANT 10/25/2024 8:46 PM EDT - 11/02/2024 6:23 PM EDT Hospital Encounter [facility] [address] [place] [address] Harvey Domínguez III, MD Haugen, Christine, MD Acute kidney injury superimposed on CKD ([facility]) (Primary Dx); Prophylactic antibiotic; Prolonged QT interval; Immunosuppression (CMS-HCC); Abdominal pain, unspecified abdominal location Discharge Disposition: Home or Self Care WITHOUT Home Care Services 10/25/2024 Travel 10/25/2024 Telephone [facility] Liver Transplant at [address] [place] [phone] Krissy Crowell, RN DDLT patient instructions 10/25/2024 Telephone [facility] Liver Transplant at [address] [place] [phone] Krissy Crowell, ЮЛИЯ 10/24/2024 Telephone [facility] Renal Hypertension Clinic at [address] [place] [address] Joann Davies MA Appointment 10/22/2024 Telephone [facility] Liver Transplant at [address] [place] [address] Mary Butler, ЮЛИЯ 10/22/2024 Chart Note [facility] Kidney Transplant at [address] [place] [address] Gladis Rainey, RN Received most recent eGFR from today with result of 21. Pt meets CKD 10/22/2024 Chart Note [facility] Liver Transplant at [address] [place] [address] [place] [address] Faraz Carballo, ЮЛИЯ 2nd ABO verified for [facility] listing at the request of JOSE G Butler. 10/22/2024 Telephone [facility] Psychiatry Transplant at [address] [place] [address] Lizeth Warren PsyD 10/22/2024 Chart Note [facility] [address] [place] [address] Aaron Gonzalez MD Candidacy for a simultaneous liver-kidney transplant 10/22/2024 Status Update [facility] Kidney Transplant at [address] [place] [address] Aaron Gonzalez MD 10/22/2024 Chart Note [facility] Liver Transplant at [address] [place] [address] Mary Butler, RN UNOS VERIFICATION CHECK FORM 10/22/2024 Orders Only [facility] Pancreas Transplant at [facility] [address] [place] [address] Abdulkadir Gaspar MD 10/22/2024 Chart Note [facility] Liver Transplant at [address] [place] [address] Mary Butler RN 10/21/2024 Telephone [facility] Gastroenterology at [facility] [address] [place] [address] Gerri Peterson MD Medication Management (Requesting RX for New Medication ) 10/21/2024 Refill [facility] Gastroenterology at [facility] [address] [place] [address] Gerri Peterson MD 10/20/2024 9:10 AM EDT - 10/20/2024 11:59 PM EDT Hospital Encounter [facility] Radiology [address] [place] [address] System, Provider Not In Discharge Disposition: Home or Self Care WITHOUT Home Care Services 10/20/2024 9:10 AM EDT - 10/20/2024 11:59 PM EDT Hospital Encounter [facility] Radiology [address] [place] [address] System, Provider Not In Discharge Disposition: Home or Self Care WITHOUT Home Care Services 10/20/2024 9:10 AM EDT - 10/20/2024 11:59 PM EDT Hospital Encounter [facility] Radiology [address] [place] [address] System, Provider Not In Discharge Disposition: Home or Self Care WITHOUT Home Care Services 10/20/2024 9:10 AM EDT - 10/20/2024 11:59 PM EDT Hospital Encounter [facility] Radiology [address] [place] [address] System, Provider Not In Discharge Disposition: Home or Self Care WITHOUT Home Care Services 10/20/2024 9:10 AM EDT - 10/20/2024 11:59 PM EDT Hospital Encounter [facility] Radiology [address] [place] [address] System, Provider Not In Discharge Disposition: Home or Self Care WITHOUT Home Care Services 10/20/2024 9:10 AM EDT - 10/20/2024 11:59 PM EDT Hospital Encounter [facility] Radiology [address] [place] [address] System, Provider Not In Discharge Disposition: Home or Self Care WITHOUT Home Care Services 10/20/2024 9:10 AM EDT - 10/20/2024 11:59 PM EDT Hospital Encounter [facility] Radiology [address] [place] [address] System, Provider Not In Discharge Disposition: Home or Self Care WITHOUT Home Care Services 10/20/2024 Orders Only [facility] Pancreas Transplant at [facility] [address] [place] [address] Abdulkadir Gaspar MD 10/20/2024 Telephone [facility] Gastroenterology at [facility] [address] [place] [address] Gerri Peterson MD Prescription Issue (RX Clarification Request ) 10/20/2024 Refill [facility] Gastroenterology at [facility] [address] [facility] [address] [place] [address] Gerri Peterson MD 10/20/2024 Telephone [facility] Liver Transplant at [place] [address] [place] [phone] Mary Butler, ЮЛИЯ 10/17/2024 Chart Note [facility] Kidney Transplant at [address] [address] Anny Cote, RN Copy of HLA report scanned into the media tab. Will follow up on GFR 10/17/2024 Chart Note [facility] Kidney Transplant at [address] [address] Anny Cote, RN 10/17/2024 Pharmacy Services [facility] Discharge Pharmacy [address] [place] [phone] Ridge Menjivar jaymie 10/14/2024 8:42 AM EDT - 10/14/2024 9:27 AM EDT Surgery [facility] Cardiac Center Director Lead Teacher [address] [place] [phone] Irving Matta MD Left Heart Cath 10/14/2024 Chart Note [facility] Kidney Transplant at [address] [address] Dean Robles [facility] [address] 10/10/2024 12:01 PM EDT Anesthesia Event [facility] ENDOSCOPY [address] [place] [address] Cady Bhat MD Nguyen, Quinn, MD 10/10/2024 10:36 AM EDT - 10/10/2024 11:06 AM EDT Surgery [facility] ENDOSCOPY [address] [place] [address] Lino Soto MD EGD 10/09/2024 Social Work [facility] Liver Transplant at [address] [place] [address] [place] [phone] Kaylin Willard MSW 10/09/2024 Chart Note [facility] Kidney Transplant at [address] [phone] Dean Robles [facility] [phone] call from [facility] fx [phone] 10/09/2024 Chart Note [facility] Kidney Transplant at [address] [address] Dean Robles [facility] [address] 10/07/2024 Chart Note [facility] Liver Transplant at [address] [address] Mary Butler RN Spoke with Blair Anderson today for evaluation for a combined liver and 10/07/2024 Chart Note [facility] Kidney Transplant at [address] [phone] Anny Cote, RN Received notice of in house evaluation. Message to nephrology 10/07/2024 Chart Note [facility] Kidney Transplant at [address] [phone] Chey Nicole MA This MA received new referral for PT. Will FU once financially cleared. 10/07/2024 Chart Note [facility] Kidney Transplant at [address] [phone] Anny Cote RN Simultaneous Liver-Kidney Transplant Referral 10/06/2024 Travel 10/05/2024 11:12 PM EDT - 10/17/2024 10:29 AM EDT Hospital Encounter [facility] [address] [place] [phone] Gómez Blanchard MD Wood, Sharice N, MD [...] Care WITHOUT Home Care Services 10/05/[address] [facility] PATIENT SERVICES [address] [place] [address] Unknown, Attending Provider After Hours Call 10/01/2024 Telephone [facility] Liver Transplant at [place] [id number] [facility] [address] [place] [phone] Armand Salinas, ЮЛИЯ 09/30/2024 Social Work [facility] Liver Transplant at [place] [phone] [facility] [address] [place] [address] Kaylin Willard MSW 09/29/2024 11:00 AM EDT Office Visit [facility] Psychiatry Transplant at [place] [phone] [facility] [address] [place] [phone] Lizeth Warren PsyD PTSD (post-traumatic stress disorder) (Primary Dx); Alcohol use disorder 09/26/2024 Abstract [facility] Gastroenterology at [facility] [address] [facility] [place] [address] [place] [phone] Gerri Peterson MD 09/25/2024 11:25 AM EDT [facility] [place] [phone] Gerri Peterson MD Cirrhosis of liver with ascites, unspecified hepatic cirrhosis type (CMS-HCC); Pre-transplant evaluation for chronic liver disease; Alcoholic cirrhosis of liver without ascites (CMS-HCC) 09/25/2024 Social Work [facility] Liver Transplant at [address] [place] [phone] Sudheer Kaylin, MSW 09/25/2024 Telephone [facility] Interventional Radiology [address] [place] [address] Thad De Leon Appointment 09/25/2024 Orders Only [facility] Liver Transplant at [address] [place] [address] Mary Butler RN Pre-transplant evaluation for chronic liver disease (Primary Dx); Alcoholic cirrhosis of liver without ascites (CMS-HCC) 09/24/2024 Orders Only [facility] Gastroenterology at [facility] [address] [facility] [address] [place] [phone] Gerri Peterson MD Cirrhosis of liver with ascites, unspecified hepatic cirrhosis type (CMS-HCC) (Primary Dx) 09/24/2024 Orders Only [facility] Gastroenterology at [facility] [address] [facility] [address] [place] [address] Gerri Peterson MD Cirrhosis of liver with ascites, unspecified hepatic cirrhosis type (CMS-HCC) (Primary Dx) 09/23/2024 Telephone [facility] Gastroenterology at [facility] [address] [facility] [address] [place] [address] Gerri Peterson MD Orders (Order Clarification Request/) 09/22/2024 Telephone [facility] Gastroenterology at [facility] [address] [facility] [address] [place] [address] Gerri Peterson MD Orders (Order Clarification Request ) 09/17/2024 Telephone [facility] Liver Transplant at [address] [place] [address] [place] [phone] Kaylin Willard, [employer]GER 09/17/2024 Abstract [facility] Gastroenterology at [facility] [address] [facility] [address] [place] [phone] Gerri Peterson MD 09/17/2024 Telephone [facility] Liver Transplant at [place] [phone] [facility] [place] [address] [place] [address] Kaylin Willadr, [employer] MANAGER 09/16/2024 Telephone [facility] Gastroenterology at [facility] [address] [facility] [address] [place] [phone] Gerri Peterson MD Medical Management (Plan of Care Inquiry/Question ) 09/10/2024 Telephone [facility] Liver Transplant at [address] [place] [phone] Kaylin Willard, [facility] 09/05/2024 Orders Only [facility] Gastroenterology at [facility] [address] [facility] [address] [place] [phone] Chris Orosco MD Cirrhosis of liver with ascites, unspecified hepatic cirrhosis type (CMS-HCC) (Primary Dx) 09/05/2024 Travel 09/03/2024 4:56 AM EDT - 09/09/2024 6:25 PM EDT Hospital Encounter [facility] [address] [place] [phone] Ana Maria Ramey MD Zackary, Joseph, MD Morgenlander, Adam M, MD Liebler, Hillary, MD Stickles, Allison Michele, MD Alcoholic cirrhosis of liver with ascites (CMS-HCC) (Primary Dx); Abdominal pain, unspecified abdominal location; NADIYA (acute kidney injury) (CMS-HCC) [N17.9] Discharge Disposition: Home or Self Care WITHOUT Home Care Services 09/03/2024 Telephone [facility] Interventional Radiology [address] [place] [phone] Thad De Leon Appointment 09/02/2024 4:00 PM EDT [facility] [address] [facility] [address] [place] [phone] Doron Botello MD Alcoholic cirrhosis of liver without ascites (CMS-HCC); Cirrhosis of liver with ascites, unspecified hepatic cirrhosis type (CMS-HCC) 09/02/2024 2:40 PM EDT Office Visit [facility] Gastroenterology at [facility] [address] [facility] [address] [place] [phone] Gerri Peterson MD Cirrhosis of liver with ascites, unspecified hepatic cirrhosis type (CMS-HCC) (Primary Dx); Alcoholic cirrhosis of liver without ascites (CMS-HCC) 09/02/2024 Orders Only PROVIDER [address] [place], [place] [phone] Noé Giordano MD Hypokalemia (Primary Dx) 09/02/[address] [facility] PATIENT SERVICES [address] [place], [place] [phone] Unknown, Attending Provider After Hours Call 09/02/2024 Orders Only [facility] Liver Transplant at [address] [place] [phone] Mary Butler, RN Pre-transplant evaluation for chronic liver disease (Primary Dx); Alcoholic cirrhosis of liver without ascites (CMS-HCC) 09/02/2024 Telephone [facility] Gastroenterology at [facility] [address] [facility] [address] [place] [phone] Gerri Peterson MD Orders (Order Request (New) ) 09/02/2024 Telephone [facility] Gastroenterology at [facility] [address] [facility] [address] [place] [phone] Chris Orosco MD 08/20/2024 Telephone [facility] Liver Transplant at [address] [place] [address] Kaylin Willard MSW 08/15/2024 Chart Note [facility] Kidney Transplant at [address] [phone] Dean Robles [facility] [address] 08/13/2024 Chart Note [facility] Liver Transplant at [address] [phone] Mary Butler, ЮЛИЯ Outpatient liver transplant referral received from Dr Maza. Referral 08/12/2024 6:12 PM EDT - 08/19/2024 12:56 PM EDT Hospital Encounter [facility] [address] [place] [phone] [place], MD Jf Day Peter, MD Ahmad, Yousef, MD Ayoub, Bassam Y, MD Clark, Leeanna Jaime MD Chronic liver failure without hepatic coma (CMS-HCC) (Primary Dx); Decompensated cirrhosis (CMS-HCC); NADIYA (acute kidney injury) (CMS-HCC); Hypotension, unspecified hypotension type; Hepatorenal syndrome (CMS-HCC); Shock ([facility]-H[facility]); Acute metabolic encephalopathy Discharge Disposition: Home WITH Home Health Care Services 08/12/2024 Travel from Last 3 Months Social History Tobacco [...] Recorded In the past 12 months has [employer], gas, oil, or water [employer] threatened to shut off services in your [...] PM EDT Sexual Orientation Not on file Last Filed [...] 1.6 oz) 11/04/2024 8:52 AM EDT Height 193 cm (6' 4 ) 10/26/2024 11:26 AM EDT Body Mass Index 29.23 10/26/2024 11:26 AM EDT Plan of Treatment Upcoming Encounters Date Type Department Care Team (Late st Contact Info) Description 12/05/2024 8:01 AM EDT Hospital Encounter [facility] ENDOSCOPY [address] [place] [address] Chris Orosco MD [address] [place] [phone] 12/05/2024 8:01 AM EDT - 12/05/2024 8:31 AM EDT Surgery [facility] ENDOSCOPY [address] [place] [address] Chris Orosco MD [address] [place] [phone] EGD Scheduled Procedures Name Priority Associated Diagnoses [...] 3-dose series) 10/11/2010 09/13/2010 Immunization: COVID-19 ( - season) 2024 03/17/2021, 07/25/2020, 06/27/2020 Depression Screening 09/29/2025 09/29/2024, 09/03/19 25 Thyroid Function/TSH (MyChart) 10/07/2025 0 10/07/2024, 10/06/2024, 09/03/2024 Alcohol Misuse Screening 10/25/2025 025, 10/05/2024, 09/03/2024, Additional history exists Renal Function/GFR 11/04/2025 11/04/2024, 0 11/02/2024, 11/01/2024, Additional history exists Immunization: DTaP/Tdap/Td ( 3 - Td or Tdap) 06/03/2028 06/03/2018, 09/13/2010 Immunization: Influenza (MyChart) Completed 024, 03/12/2023 HIV Screening Completed 10/25/2024, 10/07/2024 Hepatitis C Screening (MyChart) Completed 10/25/2024, 10/07/2024, 10/06/2024, Additional history exists Procedures Procedure Name Priority Date/Time Associated Diagnosis Comments MAGNESIUM Routine 11/04/2024 8:46 AM EDT Kidney transplant recipient PROTEIN / CREATININE RATIO, URINE Routine 11/04/2024 8:46 AM EDT Kidney transplant recipient URINALYSIS W/RFL TO MICROSCOPIC Routine 11/04/2024 8:46 AM EDT Kidney transplant recipient DIFFERENTIAL Add-On 11/04/2024 8:46 AM EDT Liver replaced by transplant (CMS-HCC) Immunosuppressive management encounter following liver transplant (CMS-HCC) CBC Add-On 11/04/2024 8:46 AM EDT Liver replaced by transplant (CMS-HCC) Immunosuppressive management encounter following liver transplant (CMS-HCC) RENAL FUNCTION PANEL W/EGFR Routine 11/04/2024 8:46 AM EDT Liver replaced by transplant (CMS-HCC) Immunosuppressive management encounter following liver transplant (CMS-HCC) HEPATIC FUNCTION PANEL Routine 8:46 AM EDT Liver replaced by transplant (CMS-HCC) Immunosuppressive management encounter following liver transplant (CMS-HCC) TACROLIMUS LEVEL Routine 11/04/2024 8:46 AM EDT Liver replaced by transplant (CMS-HCC) Immunosuppressive management encounter following liver transplant (CMS-HCC) POST KIDNEY TRANSPLANT URINE CULTURE Routine 11/04/2024 8:46 AM EDT Kidney transplant recipient EKG - SCAN 11/03/2024 9:07 AM EDT BLOOD TRANSFUSION - SCAN 025 8:24 AM EDT PERFUSION RECORD - SCAN 11/04/19 25 8:24 AM EDT POC GLU MONITORING DEVICE Routine 2024 5:44 PM EDT POC GLU MONITORING DEVICE Routine 2024 3:34 PM EDT POC GLU MONITORING DEVICE Routine 2024 1:18 PM EDT POC GLU MONITORING DEVICE Routine 2024 8:59 AM EDT TACROLIMUS LEVEL Timed 11/02/2024 5:53 AM EDT RENAL FUNCTION PANEL W/EGFR Routine 11/02/2024 5:53 AM EDT MAGNESIUM Routine 11/02/2024 5:53 AM EDT HEPATIC FUNCTION PANEL Routine 5:53 AM EDT CBC Routine 11/02/2024 5:53 AM EDT POC GLU MONITORING DEVICE Routine 2024 9:26 PM EDT POC GLU MONITORING DEVICE Routine 2024 5:04 PM EDT RENAL FUNCTION PANEL W/EGFR STAT 11/01/2024 2:17 PM EDT XR PORTABLE ABDOMEN AP Routine 12:34 PM EDT POC GLU MONITORING DEVICE Routine 2024 12:22 PM EDT POC GLU MONITORING DEVICE Routine 2024 8:50 AM EDT TACROLIMUS LEVEL Timed 11/01/2024 6:01 AM EDT RENAL FUNCTION PANEL W/EGFR Routine 11/01/2024 6:01 AM EDT MAGNESIUM Routine 11/01/2024 6:01 AM EDT HEPATIC FUNCTION PANEL Routine 6:01 AM EDT CBC Routine 11/01/2024 6:01 AM EDT POC GLU MONITORING DEVICE Routine 2024 9:15 PM EDT POC GLU MONITORING DEVICE Routine 2024 5:[address] ABDOMEN AND PELVIS WO IV CONTRAST STAT 10/31/2024 4:08 PM EDT ECG 12-LEAD (MUSE) Routine 10/31/2024 3:42 PM EDT URINALYSIS W/RFL TO MICROSCOPIC Routine 10/31/2024 1:18 PM EDT POST KIDNEY TRANSPLANT URINE CULTURE Routine 10/31/2024 1:18 PM EDT POC GLU MONITORING DEVICE Routine 2024 11:59 AM EDT US ABDOMEN LIMITED Routine 10/31/2024 10:19 AM EDT US RENAL TRANSPLANT Routine 10/31/2024 10:19 AM EDT US DUPLEX [id number] COMPLETE Routine 10/31/2024 10:19 AM EDT ECG 12-LEAD (MUSE) STAT 10/31/2024 8:57 AM EDT POC GLU MONITORING DEVICE Routine 2024 8:44 AM EDT TACROLIMUS LEVEL Timed 10/31/2024 6:40 AM EDT RENAL FUNCTION PANEL W/EGFR Routine 10/31/2024 6:40 AM EDT MAGNESIUM Routine 10/31/2024 6:40 AM EDT HEPATIC FUNCTION PANEL Routine 6:40 AM EDT CBC Routine 10/31/2024 6:40 AM EDT POC GLU MONITORING DEVICE Routine 2024 9:01 PM EDT POC GLU MONITORING DEVICE Routine 2024 5:37 PM EDT POC GLU MONITORING DEVICE Routine 2024 7:26 AM EDT TACROLIMUS LEVEL Timed 10/30/2024 7:13 AM EDT ECG 12-LEAD (MUSE) STAT 10/30/2024 6:51 AM EDT RENAL FUNCTION PANEL W/EGFR Routine 10/30/2024 5:41 AM EDT MAGNESIUM Routine 10/30/2024 5:41 AM EDT HEPATIC FUNCTION PANEL Routine 5:41 AM EDT CBC Routine 10/30/2024 5:41 AM EDT POC GLU MONITORING DEVICE Routine 2024 10:18 PM EDT POC GLU MONITORING DEVICE Routine 2024 6:42 PM EDT POC GLU MONITORING DEVICE Routine 2024 11:35 AM EDT ECG 12-LEAD (MUSE) Routine 10/29/2024 9:34 AM EDT TACROLIMUS LEVEL Timed 10/29/2024 8:08 AM EDT PREPARE RBC, LEUKOREDUCED Routine 2024 6:16 AM EDT PREPARE RBC, LEUKOREDUCED STAT 2024 6:15 AM EDT PREPARE RBC, LEUKOREDUCED Routine 2024 6:15 AM EDT RENAL FUNCTION PANEL W/EGFR Routine 10/29/2024 5:07 AM EDT MAGNESIUM Routine 10/29/2024 5:07 AM EDT HEPATIC FUNCTION PANEL Routine 5:07 AM EDT CBC Routine 10/29/2024 5:07 AM EDT TEG-BYPASS/ECMO/LIVER HN (FACTOR FUNCTION, PLATELET/FIBRIN CLOT STRENGTH W/CLOT BREAKDOWN, HEPARINASE IN ALL CHANNELS) STAT 10/29/2024 5:07 AM EDT TEG-BYPASS/ECMO/LIVER HN (FACTOR FUNCTION, PLATELET/FIBRIN CLOT STRENGTH W/CLOT BREAKDOWN, HEPARINASE IN ALL CHANNELS) STAT 10/28/2024 11:55 PM EDT CBC STAT 10/28/2024 8:04 PM EDT POC GLU MONITORING DEVICE Routine 2024 8:03 PM EDT TEG-BYPASS/ECMO/LIVER HN (FACTOR FUNCTION, PLATELET/FIBRIN CLOT STRENGTH W/CLOT BREAKDOWN, HEPARINASE IN ALL CHANNELS) STAT 10/28/2024 6:39 PM EDT POC GLU MONITORING DEVICE Routine 2024 5:31 PM EDT US ABDOMEN LIMITED STAT 10/28/2024 4:23 PM EDT US DUPLEX [id number] COMPLETE STAT 10/28/2024 4:23 PM EDT TRANSFUSE RED BLOOD CELLS Routine 2024 3:46 PM EDT CBC STAT 10/28/2024 2:49 PM EDT ECG 12-LEAD (MUSE) Routine 10/28/2024 1:22 PM EDT POC GLU MONITORING DEVICE Routine 2024 12:54 PM EDT TRANSFUSE RED BLOOD CELLS STAT 2024 11:41 AM EDT PROTIME-INR STAT 10/28/2024 11:09 AM EDT LACTIC ACID STAT 10/28/2024 11:09 AM EDT MAGNESIUM STAT 10/28/2024 11:09 AM EDT RENAL FUNCTION PANEL W/EGFR STAT 10/28/2024 11:09 AM EDT TEG-BYPASS/ECMO/LIVER HN (FACTOR FUNCTION, PLATELET/FIBRIN CLOT STRENGTH W/CLOT BREAKDOWN, HEPARINASE IN ALL CHANNELS) STAT 10/28/2024 11:09 AM EDT CBC STAT 10/28/2024 10:21 AM EDT POC GLU MONITORING DEVICE Routine 2024 9:07 AM EDT TACROLIMUS LEVEL Timed 10/28/2024 8:20 AM EDT POC GLU MONITORING DEVICE Routine 2024 8:10 AM EDT POC GLU MONITORING DEVICE Routine 2024 6:17 AM EDT PREPARE PLATELETS, LEUKOREDUCED Routine 10/28/2024 6:15 AM EDT PREPARE FRESH FROZEN PLASMA Routine 10/28/2024 6:15 AM EDT PREPARE RBC, LEUKOREDUCED Routine 2024 6:15 AM EDT PREPARE PLATELETS, LEUKOREDUCED Routine 10/28/2024 6:15 AM EDT PREPARE CRYOPRECIPITATE Routine 10/29/19 6:15 AM EDT PREPARE FRESH FROZEN PLASMA Routine 10/28/2024 6:15 AM EDT PREPARE CRYOPRECIPITATE Routine 10/29/19 6:15 AM EDT POC GLU MONITORING DEVICE Routine 2024 4:55 AM EDT TEG-BYPASS/ECMO/LIVER HN (FACTOR FUNCTION, PLATELET/FIBRIN CLOT STRENGTH W/CLOT BREAKDOWN, HEPARINASE IN ALL CHANNELS) STAT 10/28/2024 4:13 AM EDT PROTIME-INR Routine 10/28/2024 4:13 AM EDT MAGNESIUM Routine 10/28/2024 4:13 AM EDT HEPATIC FUNCTION PANEL Routine 4:13 AM EDT RENAL FUNCTION PANEL W/EGFR Routine 10/28/2024 4:13 AM EDT CBC Routine 10/28/2024 4:13 AM EDT POC GLU MONITORING DEVICE Routine 2024 4:04 AM EDT POC GLU MONITORING DEVICE Routine 2024 3:00 AM EDT POC GLU MONITORING DEVICE Routine 2024 2:32 AM EDT POC GLU MONITORING DEVICE Routine 2024 2:14 AM EDT POC GLU MONITORING DEVICE Routine 2024 2:03 AM EDT TRANSFUSE RED BLOOD CELLS Routine 2024 1:20 AM EDT MAGNESIUM Routine 10/28/2024 12:05 AM EDT RENAL FUNCTION PANEL W/EGFR Routine 10/28/2024 12:05 AM EDT DIFFERENTIAL Routine 10/28/2024 12:05 AM EDT CBC Routine 10/28/2024 12:05 AM EDT TEG-BYPASS/ECMO/LIVER HN (FACTOR FUNCTION, PLATELET/FIBRIN CLOT STRENGTH W/CLOT BREAKDOWN, HEPARINASE IN ALL CHANNELS) STAT 10/28/2024 12:05 AM EDT POC GLU MONITORING DEVICE Routine 2024 12:03 AM EDT POC GLU MONITORING DEVICE Routine 2024 10:03 PM EDT POC GLU MONITORING DEVICE Routine 2024 8:06 PM EDT POC GLU MONITORING DEVICE Routine 2024 6:00 PM EDT LACTIC ACID STAT 10/27/2024 5:41 PM EDT HEPATIC FUNCTION PANEL STAT 5:13 PM EDT TEG-BYPASS/ECMO/LIVER HN (FACTOR FUNCTION, PLATELET/FIBRIN CLOT STRENGTH W/CLOT BREAKDOWN, HEPARINASE IN ALL CHANNELS) STAT 10/27/2024 5:13 PM EDT PROTIME-INR Routine 10/27/2024 5:13 PM EDT MAGNESIUM Routine 10/27/2024 5:13 PM EDT HEPATIC FUNCTION PANEL Routine 5:13 PM EDT RENAL FUNCTION PANEL W/EGFR Routine 10/27/2024 5:13 PM EDT CBC Routine 10/27/2024 5:13 PM EDT POC GLU MONITORING DEVICE Routine 2024 3:57 PM EDT CBC STAT 10/27/2024 2:40 PM EDT BLOOD GAS, ARTERIAL STAT 10/27/2024 2:40 PM EDT POC GLU MONITORING DEVICE Routine 2024 2:06 PM EDT BLOOD GAS, ARTERIAL STAT 10/27/2024 12:35 PM EDT TEG-BYPASS/ECMO/LIVER HN (FACTOR FUNCTION, PLATELET/FIBRIN CLOT STRENGTH W/CLOT BREAKDOWN, HEPARINASE IN ALL CHANNELS) STAT 10/27/2024 12:07 PM EDT POC GLU MONITORING DEVICE Routine 2024 12:01 PM EDT POC GLU MONITORING DEVICE Routine 2024 10:59 AM EDT ECG 12-LEAD (MUSE) STAT 10/27/2024 10:17 AM EDT POC GLU MONITORING DEVICE Routine 2024 10:00 AM EDT US RENAL TRANSPLANT STAT 10/27/2024 9:51 AM EDT US DUPLEX [id number] COMPLETE STAT 10/27/2024 9:51 AM EDT US ABDOMEN LIMITED STAT 10/27/2024 9:51 AM EDT CARISA RHYTHM STRIP - SCAN 10/28/19 9:25 AM EDT POC GLU MONITORING DEVICE Routine 2024 9:05 AM EDT XR PORTABLE CHEST STAT 10/27/2024 8:58 AM EDT PROTIME-INR STAT 10/27/2024 8:16 AM EDT MAGNESIUM Routine 10/27/2024 8:00 AM EDT RENAL FUNCTION PANEL W/EGFR Routine 10/27/2024 8:00 AM EDT HEPATIC FUNCTION PANEL STAT 8:00 AM EDT LACTIC ACID STAT 10/27/2024 8:00 AM EDT BLOOD GAS, ARTERIAL STAT 10/27/2024 8:00 AM EDT TEG-BYPASS/ECMO/LIVER HN (FACTOR FUNCTION, PLATELET/FIBRIN CLOT STRENGTH W/CLOT BREAKDOWN, HEPARINASE IN ALL CHANNELS) STAT 10/27/2024 8:00 AM EDT KATIE-WATKINS VIRUS VCA IGG AB Routine 10/27/2024 8:00 AM EDT HEMOGLOBIN A1C Routine 10/27/2024 8:00 AM EDT POC GLU MONITORING DEVICE Routine 2024 7:59 AM EDT XR ABDOMEN AP VIEW ONLY STAT 10/28/19 7:47 AM EDT TRANSFUSE RED BLOOD CELLS Routine 2024 6:29 AM EDT PREPARE CRYOPRECIPITATE Routine 10/28/19 6:16 AM EDT PREPARE PLATELETS, LEUKOREDUCED Routine 10/27/2024 6:16 AM EDT PREPARE CRYOPRECIPITATE Routine 10/28/19 6:16 AM EDT PREPARE FRESH FROZEN PLASMA Routine 10/27/2024 6:16 AM EDT PREPARE PLATELETS, LEUKOREDUCED Routine 10/27/2024 6:16 AM EDT PREPARE FRESH FROZEN PLASMA Routine 10/27/2024 6:15 AM EDT PREPARE RBC, LEUKOREDUCED Routine 2024 6:15 AM EDT PREPARE RBC, LEUKOREDUCED Routine 2024 6:15 AM EDT TRANSFUSE PLATELETS Routine 10/27/2024 6:09 AM EDT ARTERIAL BLOOD GAS PANEL STAT 025 6:09 AM EDT TRANSFUSE FRESH FROZEN PLASMA Routine 10/27/2024 5:49 AM EDT TRANSFUSE CRYOPRECIPITATE Routine 2024 4:56 AM EDT TRANSFUSE CRYOPRECIPITATE Routine 2024 4:49 AM EDT POC GLU MONITORING DEVICE Routine 2024 4:46 AM EDT TRANSFUSE PLATELETS Routine 10/27/2024 4:24 AM EDT HOX - HLA ANTIBODY REPORT Routine 2024 4:16 AM EDT TRANSFUSE FRESH FROZEN PLASMA Routine 10/27/2024 4:07 AM EDT TRANSFUSE RED BLOOD CELLS Routine 2024 3:52 AM EDT ARTERIAL BLOOD GAS PANEL STAT 025 3:07 AM EDT SURGICAL PATHOLOGY EXAM Routine 10/28/19 25 2:38 AM EDT Acute kidney injury superimposed on CKD ([facility]) CT RENAL ALTRNSPLJ IMPLTJ GRF W/MANAGER PHYSICAL NEPHRECTOMY 10/27/2024 2:32 AM EDT Acute kidney injury superimposed on CKD ([facility]) 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 patel ANAEROBIC CULTURE Routine 10/27/2024 2:15 AM EDT FUNGUS CULTURE Routine 10/27/2024 2:15 AM EDT ROUTINE CULTURE PLUS STAIN Routine 10/27/2024 2:15 AM EDT TEG-STANDARD GLOBAL HEMOSTASIS (RAPID TEG WITH HEPARIN EFFECT, CONTAINS A BASELINE) STAT 10/27/2024 1:51 AM EDT POC GLU MONITORING DEVICE Routine 2024 1:50 AM EDT TRANSFUSE PLATELETS Routine 10/27/2024 1:28 AM EDT POC GLU MONITORING DEVICE Routine 2024 1:21 AM EDT TRANSFUSE CRYOPRECIPITATE Routine 2024 1:05 AM EDT TRANSFUSE FRESH FROZEN PLASMA Routine 10/27/2024 12:30 AM EDT CALCIUM FREE, SERUM STAT 10/27/2024 12:13 AM EDT BLOOD GAS, ARTERIAL STAT 10/27/2024 12:13 AM EDT TEG-BYPASS/ECMO/LIVER HN (FACTOR FUNCTION, PLATELET/FIBRIN CLOT STRENGTH W/CLOT BREAKDOWN, HEPARINASE IN ALL CHANNELS) STAT 10/27/2024 12:13 AM EDT LACTIC ACID Routine 10/27/2024 12:13 AM EDT MAGNESIUM Routine 10/27/2024 12:13 AM EDT HEPATIC FUNCTION PANEL Routine 12:13 AM EDT RENAL FUNCTION PANEL W/EGFR Routine 10/27/2024 12:13 AM EDT PROTIME-INR Routine 10/27/2024 12:13 AM EDT CBC Routine 10/27/2024 12:13 AM EDT POC GLU MONITORING DEVICE Routine 2024 12:08 AM EDT POC GLU MONITORING DEVICE Routine 2024 11:15 PM EDT TEG-BYPASS/ECMO/LIVER HN (FACTOR FUNCTION, PLATELET/FIBRIN CLOT STRENGTH W/CLOT BREAKDOWN, HEPARINASE IN ALL CHANNELS) STAT 10/26/2024 10:36 PM EDT POC GLU MONITORING DEVICE Routine 2024 10:14 PM EDT POC GLU MONITORING DEVICE Routine 2024 9:16 PM EDT POC GLU MONITORING DEVICE Routine 2024 8:05 PM EDT POC GLU MONITORING DEVICE Routine 2024 7:02 PM EDT POC GLU MONITORING DEVICE Routine 2024 6:33 PM EDT TRANSFUSE CRYOPRECIPITATE Routine 2024 6:23 PM EDT POC GLU MONITORING DEVICE Routine 2024 6:17 PM EDT TRANSFUSE CRYOPRECIPITATE Routine 2024 6:12 PM EDT POC GLU MONITORING DEVICE Routine 2024 4:58 PM EDT CALCIUM FREE, SERUM STAT 10/26/2024 4:42 PM EDT REPEAT CROSSMATCH (RECIPIENT SAMPLE) Routine 10/26/2024 4:42 PM EDT LACTIC ACID Routine 10/26/2024 4:42 PM EDT MAGNESIUM Routine 10/26/2024 4:42 PM EDT HEPATIC FUNCTION PANEL Routine 4:42 PM EDT RENAL FUNCTION PANEL W/EGFR Routine 10/26/2024 4:42 PM EDT PROTIME-INR Routine 10/26/2024 4:42 PM EDT CBC Routine 10/26/2024 4:42 PM EDT POC GLU MONITORING DEVICE Routine 2024 3:54 PM EDT POC GLU MONITORING DEVICE Routine 2024 3:06 PM EDT TEG-BYPASS/ECMO/LIVER HN (FACTOR FUNCTION, PLATELET/FIBRIN CLOT STRENGTH W/CLOT BREAKDOWN, HEPARINASE IN ALL CHANNELS) STAT 10/26/2024 3:03 PM EDT ECG 12-LEAD (MUSE) STAT 10/26/2024 2:19 PM EDT POC GLU MONITORING DEVICE Routine 2024 2:00 PM EDT POC GLU MONITORING DEVICE Routine 2024 1:05 PM EDT TRANSFUSE CRYOPRECIPITATE Routine 2024 12:06 PM EDT POC GLU MONITORING DEVICE Routine 2024 12:06 PM EDT TRANSFUSE CRYOPRECIPITATE Routine 2024 11:49 AM EDT BLOOD GAS, ARTERIAL STAT 10/26/2024 10:48 AM EDT LACTIC ACID Routine 10/26/2024 10:48 AM EDT MAGNESIUM Routine 10/26/2024 10:48 AM EDT HEPATIC FUNCTION PANEL Routine 10:48 AM EDT RENAL FUNCTION PANEL W/EGFR Routine 10/26/2024 10:48 AM EDT PROTIME-INR Routine 10/26/2024 10:48 AM EDT CBC Routine 10/26/2024 10:48 AM EDT POC GLU MONITORING DEVICE Routine 2024 10:47 AM EDT CARISA RHYTHM STRIP - SCAN 10/27/19 10:45 AM EDT POC GLU MONITORING DEVICE Routine 2024 10:08 AM EDT POC GLU MONITORING DEVICE Routine 2024 8:57 AM EDT ECG 12-LEAD (MUSE) STAT 10/26/2024 8:16 AM EDT XR PORTABLE CHEST STAT 10/26/2024 8:13 AM EDT POC GLU MONITORING DEVICE Routine 2024 7:59 AM EDT TEG-BYPASS/ECMO/LIVER HN (FACTOR FUNCTION, PLATELET/FIBRIN CLOT STRENGTH W/CLOT BREAKDOWN, HEPARINASE IN ALL CHANNELS) STAT 10/26/2024 7:59 AM EDT POC GLU MONITORING DEVICE Routine 2024 6:12 AM EDT LACTIC ACID STAT 10/26/2024 6:10 AM EDT FIBRINOGEN STAT 10/26/2024 6:10 AM EDT PROTIME-INR STAT 10/26/2024 6:10 AM EDT BLOOD GAS, ARTERIAL STAT 10/26/2024 6:10 AM EDT MAGNESIUM STAT 10/26/2024 6:10 AM EDT HEPATIC FUNCTION PANEL STAT 6:10 AM EDT RENAL FUNCTION PANEL W/EGFR STAT 10/26/2024 6:10 AM EDT CBC STAT 10/26/2024 6:10 AM EDT POCT INR Routine 10/26/2024 5:16 AM EDT POC SAMPLE TYPE Routine 10/26/2024 5:14 AM EDT POC ANION GAP Routine 10/26/2024 5:14 AM EDT POC CHLORIDE Routine 10/26/2024 5:14 AM EDT POCT HEMOGLOBIN Routine 10/26/2024 5:14 AM EDT POCT HEMATOCRIT Routine 10/26/2024 5:14 AM EDT POC LACTATE Routine 10/26/2024 5:14 AM EDT POCT GLUCOSE Routine 10/26/2024 5:14 AM EDT POCT CALCIUM, TOTAL Routine 10/26/2024 5:14 AM EDT POC POTASSIUM Routine 10/26/2024 5:14 AM EDT POC SODIUM Routine 10/26/2024 5:14 AM EDT POC TCO2 Routine 10/26/2024 5:14 AM EDT POC O2 SAT Routine 10/26/2024 5:14 AM EDT POC BASE EXCESS Routine 10/26/2024 5:14 AM EDT POC HCO3 Routine 10/26/2024 5:14 AM EDT POC PO2 Routine 10/26/2024 5:14 AM EDT POC PCO2 Routine 10/26/2024 5:14 AM EDT POCT PH Routine 10/26/2024 5:14 AM EDT TRANSFUSE CRYOPRECIPITATE Routine 2024 4:37 AM EDT TRANSFUSE CRYOPRECIPITATE Routine 2024 4:37 AM EDT POCT INR Routine 10/26/2024 4:27 AM EDT POC SAMPLE TYPE Routine 10/26/2024 4:24 AM EDT POC ANION GAP Routine 10/26/2024 4:24 AM EDT POC CHLORIDE Routine 10/26/2024 4:24 AM EDT POCT HEMOGLOBIN Routine 10/26/2024 4:24 AM EDT POCT HEMATOCRIT Routine 10/26/2024 4:24 AM EDT POC LACTATE Routine 10/26/2024 4:24 AM EDT POCT GLUCOSE Routine 10/26/2024 4:24 AM EDT POCT CALCIUM, TOTAL Routine 10/26/2024 4:24 AM EDT POC POTASSIUM Routine 10/26/2024 4:24 AM EDT POC SODIUM Routine 10/26/2024 4:24 AM EDT POC TCO2 Routine 10/26/2024 4:24 AM EDT POC O2 SAT Routine 10/26/2024 4:24 AM EDT POC BASE EXCESS Routine 10/26/2024 4:24 AM EDT POC HCO3 Routine 10/26/2024 4:24 AM EDT POC PO2 Routine 10/26/2024 4:24 AM EDT POC PCO2 Routine 10/26/2024 4:24 AM EDT POCT PH Routine 10/26/2024 4:24 AM EDT TRANSFUSE PLATELETS Routine 10/26/2024 4:14 AM EDT TRANSFUSE FRESH FROZEN PLASMA Routine 10/26/2024 3:46 AM EDT POCT INR Routine 10/26/2024 3:34 AM EDT POC SAMPLE TYPE Routine 10/26/2024 3:31 AM EDT POC ANION GAP Routine 10/26/2024 3:31 AM EDT POC CHLORIDE Routine 10/26/2024 3:31 AM EDT POCT HEMOGLOBIN Routine 10/26/2024 3:31 AM EDT POCT HEMATOCRIT Routine 10/26/2024 3:31 AM EDT POC LACTATE Routine 10/26/2024 3:31 AM EDT POCT GLUCOSE Routine 10/26/2024 3:31 AM EDT POCT CALCIUM, TOTAL Routine 10/26/2024 3:31 AM EDT POC POTASSIUM Routine 10/26/2024 3:31 AM EDT POC SODIUM Routine 10/26/2024 3:31 AM EDT POC TCO2 Routine 10/26/2024 3:31 AM EDT POC O2 SAT Routine 10/26/2024 3:31 AM EDT POC BASE EXCESS Routine 10/26/2024 3:31 AM EDT POC HCO3 Routine 10/26/2024 3:31 AM EDT POC PO2 Routine 10/26/2024 3:31 AM EDT POC PCO2 Routine 10/26/2024 3:31 AM EDT POCT PH Routine 10/26/2024 3:31 AM EDT TEG-GLOBAL WITH LYSIS (BASELINE TEG WITH LY30, WILL NOT SHOW HEPARIN EFFECT) STAT 10/26/2024 3:31 AM EDT CBC STAT 10/26/2024 3:31 AM EDT PROTIME-INR STAT 10/26/2024 3:31 AM EDT FIBRINOGEN STAT 10/26/2024 3:31 AM EDT TRANSFUSE FRESH FROZEN PLASMA Routine 10/26/2024 3:16 AM EDT TRANSFUSE FRESH FROZEN PLASMA Routine 10/26/2024 3:15 AM EDT TRANSFUSE RED BLOOD CELLS Routine 2024 3:13 AM EDT TRANSFUSE RED BLOOD CELLS Routine 2024 3:13 AM EDT TRANSFUSE RED BLOOD CELLS Routine 2024 2:39 AM EDT TRANSFUSE FRESH FROZEN PLASMA Routine 10/26/2024 2:38 AM EDT TRANSFUSE FRESH FROZEN PLASMA Routine 10/26/2024 2:23 AM EDT TRANSFUSE FRESH FROZEN PLASMA Routine 10/26/2024 2:01 AM EDT TRANSFUSE RED BLOOD CELLS Routine 2024 2:01 AM EDT TRANSFUSE RED BLOOD CELLS Routine 2024 1:45 AM EDT TRANSFUSE RED BLOOD CELLS Routine 2024 1:45 AM EDT POCT INR Routine 10/26/2024 1:43 AM EDT TRANSFUSE FRESH FROZEN PLASMA Routine 10/26/2024 1:40 AM EDT POC SAMPLE TYPE Routine 10/26/2024 1:40 AM EDT POC ANION GAP Routine 10/26/2024 1:40 AM EDT POC CHLORIDE Routine 10/26/2024 1:40 AM EDT POCT HEMOGLOBIN Routine 10/26/2024 1:40 AM EDT POCT HEMATOCRIT Routine 10/26/2024 1:40 AM EDT POC LACTATE Routine 10/26/2024 1:40 AM EDT POCT GLUCOSE Routine 10/26/2024 1:40 AM EDT POCT CALCIUM, TOTAL Routine 10/26/2024 1:40 AM EDT POC POTASSIUM Routine 10/26/2024 1:40 AM EDT POC SODIUM Routine 10/26/2024 1:40 AM EDT POC TCO2 Routine 10/26/2024 1:40 AM EDT POC O2 SAT Routine 10/26/2024 1:40 AM EDT POC BASE EXCESS Routine 10/26/2024 1:40 AM EDT POC HCO3 Routine 10/26/2024 1:40 AM EDT POC PO2 Routine 10/26/2024 1:40 AM EDT POC PCO2 Routine 10/26/2024 1:40 AM EDT POCT PH Routine 10/26/2024 1:40 AM EDT TRANSFUSE RED BLOOD CELLS Routine 2024 1:39 AM EDT TRANSFUSE FRESH FROZEN PLASMA Routine 10/26/2024 1:17 AM EDT TRANSFUSE RED BLOOD CELLS Routine 2024 12:55 AM EDT POCT INR Routine 10/26/2024 12:41 AM EDT POC SAMPLE TYPE Routine 10/26/2024 12:39 AM EDT POC ANION GAP Routine 10/26/2024 12:39 AM EDT POC CHLORIDE Routine 10/26/2024 12:39 AM EDT POCT HEMOGLOBIN Routine 10/26/2024 12:39 AM EDT POCT HEMATOCRIT Routine 10/26/2024 12:39 AM EDT POC LACTATE Routine 10/26/2024 12:39 AM EDT POCT GLUCOSE Routine 10/26/2024 12:39 AM EDT POCT CALCIUM, TOTAL Routine 10/26/2024 12:39 AM EDT POC POTASSIUM Routine 10/26/2024 12:39 AM EDT POC SODIUM Routine 10/26/2024 12:39 AM EDT POC TCO2 Routine 10/26/2024 12:39 AM EDT POC O2 SAT Routine 10/26/2024 12:39 AM EDT POC BASE EXCESS Routine 10/26/2024 12:39 AM EDT POC HCO3 Routine 10/26/2024 12:39 AM EDT POC PO2 Routine 10/26/2024 12:39 AM EDT POC PCO2 Routine 10/26/2024 12:39 AM EDT POCT PH Routine 10/26/2024 12:39 AM EDT TRANSFUSE PLATELETS Routine 10/26/2024 12:33 AM EDT TRANSFUSE RED BLOOD CELLS Routine 2024 12:30 AM EDT TRANSFUSE FRESH FROZEN PLASMA Routine 10/26/2024 12:27 AM EDT TRANSFUSE FRESH FROZEN PLASMA Routine 10/26/2024 12:27 AM EDT ROUTINE CULTURE PLUS STAIN Routine 10/26/2024 12:03 AM EDT SURGICAL PATHOLOGY EXAM Routine 10/27/19 12:00 AM EDT TRANSFUSE FRESH FROZEN PLASMA Routine 10/25/2024 11:46 PM EDT TRANSFUSE RED BLOOD CELLS Routine 2024 11:45 PM EDT TRANSFUSE RED BLOOD CELLS Routine 2024 11:45 PM EDT POCT INR Routine 10/25/2024 11:43 PM EDT POC SAMPLE TYPE Routine 10/25/2024 11:40 PM EDT POC ANION GAP Routine 10/25/2024 11:40 PM EDT POC CHLORIDE Routine 10/25/2024 11:40 PM EDT POCT HEMOGLOBIN Routine 10/25/2024 11:40 PM EDT POCT HEMATOCRIT Routine 10/25/2024 11:40 PM EDT POC LACTATE Routine 10/25/2024 11:40 PM EDT POCT GLUCOSE Routine 10/25/2024 11:40 PM EDT POCT CALCIUM, TOTAL Routine 10/25/2024 11:40 PM EDT POC POTASSIUM Routine 10/25/2024 11:40 PM EDT POC SODIUM Routine 10/25/2024 11:40 PM EDT POC TCO2 Routine 10/25/2024 11:40 PM EDT POC O2 SAT Routine 10/25/2024 11:40 PM EDT POC BASE EXCESS Routine 10/25/2024 11:40 PM EDT POC HCO3 Routine 10/25/2024 11:40 PM EDT POC PO2 Routine 10/25/2024 11:40 PM EDT POC PCO2 Routine 10/25/2024 11:40 PM EDT POCT PH Routine 10/25/2024 11:40 PM EDT SWAN EMILY Routine 10/25/2024 11:13 PM EDT URINE CULTURE Routine 10/25/2024 11:08 PM EDT LIVER-KIDNEY TRANSPLANT 10/26/19 10:53 PM EDT Alcoholic cirrhosis of liver (CMS-HCC) INSERT ARTERIAL LINE Routine 10/25/2024 10:45 PM EDT XR PORTABLE CHEST STAT 10/25/2024 10:19 PM EDT LACTIC ACID STAT 10/25/2024 10:17 PM EDT FERRITIN Routine 10/25/2024 10:17 PM EDT IRON STUDIES Routine 10/25/2024 10:17 PM EDT PTH, INTACT Routine 10/25/2024 10:17 PM EDT HIV 1+2 ANTIBODY/ANTIGEN WITH REFLEX STAT 10/25/2024 10:17 PM EDT HEPATITIS B CORE ANTIBODY STAT 2024 10:17 PM EDT HEPATITIS C ANTIBODY STAT 10/25/2024 10:17 PM EDT HEPATITIS B SURFACE ANTIBODY, QUANTITATIVE STAT 10/25/2024 10:17 PM EDT HEPATITIS B SURFACE ANTIGEN STAT 10/25/2024 10:17 PM EDT HEPATITIS A ANTIBODY TOTAL Routine 10/25/2024 10:17 PM EDT HEPATIC FUNCTION PANEL STAT 10:17 PM EDT RENAL FUNCTION PANEL W/EGFR STAT 10/25/2024 10:17 PM EDT APTT STAT 10/25/2024 10:17 PM EDT PROTIME-INR STAT 10/25/2024 10:17 PM EDT DIFFERENTIAL STAT 10/25/2024 10:17 PM EDT CBC STAT 10/25/2024 10:17 PM EDT HLA ANTIBODY ID(POST TXP)DSA-HOXWORTH Routine 10/25/2024 10:00 PM EDT VENOUS BLOOD GAS, LINE/SYRINGE STAT 10/25/2024 10:00 PM EDT POC GLU MONITORING DEVICE Routine 2024 9:56 PM EDT ECG 12-LEAD (MUSE) STAT 10/25/2024 9:34 PM EDT HEPATITIS C RNA, QUANTITATIVE REFLEX TO GENOTYPING Routine 10/25/2024 8:18 PM EDT URINALYSIS W/RFL TO MICROSCOPIC STAT 10/25/2024 8:18 PM EDT TOXOPLASMA GONDII ANTIBODY, IGG STAT 10/25/2024 8:18 PM EDT ANTIBODY SCREEN Routine 10/25/2024 7:46 PM EDT ABO/RH Routine 10/25/2024 7:46 PM EDT TEG-STANDARD GLOBAL HEMOSTASIS (RAPID TEG WITH HEPARIN EFFECT, CONTAINS A BASELINE) Routine 10/25/2024 7:46 PM EDT HOX - HLA ANTIBODY-DETAILED REPORT Routine 10/22/2024 12:32 PM EDT RENAL FUNCTION PANEL W/O EGFR Routine 10/22/2024 RENAL FUNCTION PANEL W/O EGFR Routine 10/21/2024 PROTIME-INR Routine 10/21/2024 HEPATIC FUNCTION PANEL Routine 10/21/2024 HOX - HLA CROSSMATCH + DETAILED ANTIBODY [...] 1:15 PM EDT TRANSFUSE PLATELETS Routine 10/14/2024 9:14 AM EDT ANTIBODY SCREEN Routine 10/14/2024 8:21 [...] 10:04 PM EDT VANCOMYCIN, RANDOM Routine 10/11/2024 3:02 AM EDT PROTIME-INR STAT 10/11/2024 [...] 11:48 AM EDT VANCOMYCIN, RANDOM Routine 10/10/2024 5:23 AM EDT PROTIME-INR STAT 10/10/2024 [...] AM EDT RENAL TX RECIPIENT Routine 10/09/2024 4:59 AM EDT VANCOMYCIN, RANDOM Routine 10/09/2024 4:59 AM EDT PROTIME-INR STAT 10/09/2024 [...] 5:36 AM EDT VANCOMYCIN, RANDOM Routine 10/08/2024 5:36 AM EDT PROTIME-INR STAT 10/08/2024 [...] LIPID PANEL Routine 10/07/2024 6:37 PM EDT [id number] (AAT) QUANTITATION & MUTATION Routine 10/07/2024 6:37 [...] PM EDT US ABDOMEN COMPLETE Routine 10/07/2024 3:48 PM EDT US DUPLEX AIP-WLFPUI-CSHINPE COMPLETE Routine 10/07/2024 3:48 PM EDT CARISA RHYTHM STRIP - SCAN 10/08/19 3:30 PM EDT AFP TUMOR MARKER Routine 10/07/2024 6:00 AM EDT VANCOMYCIN, RANDOM Routine 10/07/2024 6:00 AM EDT PROTIME-INR STAT 10/07/2024 6:00 AM EDT HEPATIC FUNCTION PANEL STAT 6:00 AM EDT MAGNESIUM STAT 10/07/2024 6:00 AM EDT RENAL FUNCTION PANEL W/EGFR STAT 10/07/2024 6:00 AM EDT CBC STAT 10/07/2024 6:00 AM EDT OSMOLALITY Routine 10/06/2024 2:[address] HEAD WO CONTRAST Routine 10/06/2024 1:56 PM EDT CHLORIDE, URINE, RANDOM Routine 10/07/19 25 1:25 PM EDT POTASSIUM, URINE, RANDOM Routine 025 1:25 PM EDT SODIUM, URINE, RANDOM Routine 10/06/2024 1:25 PM EDT CREATININE, URINE, RANDOM Routine 2024 1:25 PM EDT OSMOLALITY, URINE Routine 10/06/2024 1:25 PM EDT URINE DRUG CONFIRMATION Routine [...] 10/06/2024 4:01 AM EDT UPPER RESPIRATORY VIRAL/BACTERIAL PANEL-HYDRANT SETTER ONLY Routine 10/06/2024 3:12 AM EDT XR PORTABLE CHEST Routine 10/06/2024 1:16 AM EDT PHOSPHATIDYLETHANOL CONFIRMATION, B Routine 10/06/2024 1:04 AM EDT ACETAMINOPHEN LEVEL Routine 10/06/2024 1:04 AM EDT ETHANOL, SERUM Routine [...] 2:56 PM EDT ANAEROBIC CULTURE Routine 09/09/2024 2:56 PM EDT PARACENTESIS Routine 09/09/2024 [...] AM EDT ECG 12-LEAD (MUSE) Routine 09/05/2024 4:57 AM EDT EKG - SCAN 09/05/2024 3:27 [...] AM EDT CALCIUM FREE, SERUM Routine 09/04/2024 5:22 AM EDT PROTIME-INR Routine 09/04/2024 5:22 AM [...] PM EDT XR PORTABLE CHEST Routine 09/03/2024 1:19 PM EDT PHOSPHORUS STAT 09/03/2024 10:49 AM EDT MAGNESIUM STAT 09/03/2024 10:49 AM EDT BASIC METABOLIC PANEL STAT 09/03/2024 10:49 AM EDT US ABDOMEN COMPLETE STAT 09/03/2024 10:30 AM EDT US DUPLEX [id number] COMPLETE STAT 09/03/2024 10:30 AM EDT URINALYSIS, MICROSCOPIC STAT 09/04/19 25 10:28 AM EDT URINALYSIS-MACROSCOPIC W/REFLEX TO MICROSCOPIC STAT 09/03/2024 10:28 AM EDT BLOOD CULTURE-PERIPHERAL STAT 025 8:10 AM EDT LACTIC ACID, VENOUS, WHOLE BLOOD STAT 09/03/2024 7:55 AM EDT BLOOD CULTURE-PERIPHERAL STAT 025 7:55 AM EDT HIGH SENSITIVITY TROPONIN STAT 2024 7:18 AM EDT PARACENTESIS Routine 09/03/2024 7:01 AM EDT ALBUMIN, FLUID STAT 09/03/2024 6:46 AM EDT PROTEIN, BODY FLUID STAT 09/03/2024 6:46 AM EDT BODY FLUID CELL COUNT STAT 09/03/2024 6:46 AM EDT BODY FLUID CULTURE PLUS STAIN STAT 09/03/2024 6:46 AM EDT XR PORTABLE CHEST TAMIR 09/03/2024 6:[address] ABDOMEN AND PELVIS WITH [...] 2:03 AM EDT TRANSFUSE PLATELETS Routine 08/14/2024 1:40 AM EDT ANTIBODY SCREEN Routine 08/14/2024 12:35 AM EDT ABO/RH Routine 08/14/2024 12:35 AM EDT CYTOLOGY, PERITONEAL FLUID Routine 08/14/2024 12:00 AM EDT CBC Routine 08/13/2024 8:07 PM EDT MAGNESIUM STAT 08/13/2024 8:07 PM EDT RENAL FUNCTION PANEL W/EGFR Routine 08/13/2024 8:07 PM EDT CARISA RHYTHM STRIP - SCAN 08/14/19 7:35 PM EDT XR PORTABLE CHEST STAT 08/13/2024 3:36 PM EDT VENOUS BLOOD GAS, LINE/SYRINGE STAT 08/13/2024 3:17 PM EDT US ABDOMEN COMPLETE STAT 08/13/2024 3:03 PM EDT US DUPLEX [id number] COMPLETE Routine 08/13/2024 3:03 PM EDT CENTRAL [...] METABOLIC PANEL STAT 08/12/2024 6:29 PM EDT from Last 3 Months Results * (ABNORMAL) Hepatic Function Panel (11/04/2024 8:46 AM EDT) Only the most recent of46 resultswithin the time period is included. Total Bilirubin 1.3 0.0 - 1.5 mg/dL 11/04/2024 10:06 AM EDT [facility] Bilirubin, Direct 0.57(H) 0.00 - 0.40 mg/dL 11/04/2024 10:06 AM [facility]T [facility] AST 20 13 - 39 U/L 11/04/2024 10:06 AM EDT [facility] ALT 67(H) 7 - 52 U/L 11/04/2024 10:06 AM EDT [facility] Alkaline Phosphatase 133(H) 36 - 125 U/L 11/04/2024 10:06 AM EDT [facility] Total Protein 5.4(L) 6.4 - 8.9 g/dL 11/04/2024 10:06 AM EDT [facility] Albumin 3.5 3.5 - 5.7 g/dL 11/04/2024 10:06 AM EDT [facility] Bilirubin, Indirect 0.73 0.00 - 1.10 mg/dL 11/04/2024 10:06 AM EDT [facility] Plasma 11/04/2024 8:46 AM EDT 11/04/2024 9:32 AM EDT Narrative [facility] - 11/04/2024 10:06 AM EDT Standing orders to be drawn: Every Sunday and before 9am and prior to patient taking morning medications. Liver Transplant Fax results to [phone] Call Critical results to [phone] DO NOT REPLACE RENAL PANEL or HEPATIC FUNCTION PANEL w/ CMP, BMP or HEPATIC PROFILE us Harvey Domínguez III, MD LAB BLOOD ORDERABLE S Final Result [facility] [address] [place] [address], [facility] * (ABNORMAL) Renal Function Panel w/EGFR (11/04/2024 8:46 AM EDT) Only the most recent of61 resultswithin the time period is included. Sodium 139 133 - 146 mmol/L 11/04/2024 10:06 AM EDT [facility] Potassium 3.8 3.5 - 5.3 mmol/L 11/04/2024 10:06 AM EDT [facility] Chloride 106 98 - 110 mmol/L 11/04/2024 10:06 AM EDT [facility] CO2 25 21 - 33 mmol/L 11/04/2024 10:06 AM EDT [facility] Anion Gap 8 3 - 16 mmol/L 11/04/2024 10:06 AM EDT [facility] BUN 34(H) 7 - 25 mg/dL 11/04/2024 10:06 AM EDT [facility] Creatinine 1.08 0.60 - 1.30 mg/dL 11/04/2024 10:06 AM EDT [facility] Glucose 92 70 - 100 mg/dL 11/04/2024 10:06 AM EDT [facility] Calcium 7.8(L) 8.6 - 10.3 mg/dL 11/04/2024 10:06 AM EDT [facility] Phosphorus 1.9(L) 2.1 - 4.7 mg/dL 11/04/2024 10:06 AM EDT [facility] Albumin 3.5 3.5 - 5.7 g/dL 11/04/2024 10:06 AM EDT [facility] Osmolality, Calculated 295 278 - 305 mOsm/kg 11/04/2024 10:06 AM EDT [facility] EGFR 88 11/04/2024 10:06 AM EDT [facility] Comment:As of [...] AM EDT 11/04/2024 9:32 AM EDT Narrative [facility] - 11/04/2024 10:06 AM EDT Standing orders to be drawn: Every Sunday and before 9am and prior to patient taking morning medications. Liver Transplant Fax results to [phone] Call Critical results to [phone] DO NOT REPLACE RENAL PANEL or HEPATIC FUNCTION PANEL w/ CMP, BMP or HEPATIC PROFILE us Harvey Domínguez III, MD LAB BLOOD ORDERABLE S Final Result [facility] [address] [place] [address], [facility] * Tacrolimus level (11/04/2024 8:46 AM EDT) Only the most recent of7 resultswithin the time period is included. Tacrolimus (LC-MS) 9.0 3.0 - 15.0 ng/mL 11/04/2024 3:14 PM EDT [facility] Comment:Performed via liquid chromatography tandem mass spectrometry. Detection limit: 1 ng/mL. Individual target concentrations may vary due to target organ and time after transplant. This test has been developed and its performance characteristics determined by [facility] which is certified under [...] AM EDT 11/04/2024 9:35 AM EDT Narrative [facility] - 11/04/2024 3:14 PM EDT Standing orders to be drawn: Every Sunday and before 9am and prior to patient taking morning medications. Liver Transplant Fax results to [phone] Call Critical results to [phone] Harvey Domínguez III, MD LAB BLOOD ORDERABLE S Final Result [facility] [address] * Protein / creatinine ratio, urine (11/04/2024 8:46 AM EDT) Creatinine, Urine 37.30 mg/dL 11/04/2024 2:55 PM EDT [facility] Comment:Reference range not established for this test. Total Protein, Ur 42 mg/dL 11/04/2024 2:55 PM EDT [facility] Comment:Reference range not established for this test. Prot/Creat Ratio, Ur 1.13 ratio 11/04/2024 2:55 PM EDT [facility] Urine 11/04/2024 8:46 AM EDT 11/04/2024 9:32 AM EDT Caron Santos FACSIMILE OPERATOR URINE ORDERABLES Final Re sult [facility] [address] [place] [address], [facility] * (ABNORMAL) Differential (11/04/2024 8:46 AM EDT) Only the most recent of7 resultswithin the time period is included. Differential Comments See Note 11/05/2024 12:05 AM EDT [facility] Comment: _Platelets Appear Decreased _Platelet Morphology Normal Myelocytes Relative 3.0(H) 0.0 - 0.0 % 11/05/2024 12:05 AM EDT [facility] Neutrophils Relative 73.0 40.0 - 80.0 % 11/05/2024 12:05 AM EDT [facility] Lymphocytes Relative 17.0 15.0 - 45.0 % 11/05/2024 12:05 AM EDT [facility] Monocytes Relative 6.0 0.0 - 12.0 % 11/05/2024 12:05 AM EDT [facility] Eosinophils Relative 1.0 0.0 - 8.0 % 11/05/2024 12:05 AM EDT [facility] Basophils Relative 0.0 0.0 - 1.0 % 11/05/2024 12:05 AM EDT [facility] Neutrophils Absolute 5,256 1,520 - 8,640 /uL 11/05/2024 12:05 AM EDT [facility] Myelocytes Absolute 216(H) 0 - 0 /uL 11/05/2024 12:05 AM EDT [facility] Lymphocytes Absolute 1,224 570 - 4,860 /uL 11/05/2024 12:05 AM EDT [facility] Monocytes Absolute 432 0 - 1,296 /uL 11/05/2024 12:05 AM EDT [facility] Eosinophils Absolute 72 0 - 864 /uL 11/05/2024 12:05 AM EDT [facility] Basophils Absolute 0 0 - 108 /uL 11/05/2024 12:05 AM EDT [facility] PLT Morphology Platelet morphology appears normal 11/05/2024 12:05 AM EDT [facility] Whole Blood 11/04/2024 8:46 AM EDT 11/04/2024 11:01 PM EDT Narrative [facility] - 11/05/2024 12:05 AM EDT Standing orders to be drawn: Every Sunday and before 9am and prior to patient taking morning medications. Liver Transplant Fax results to [phone] Call Critical results to [phone] Manual WBC differential performed per review criteria approved by the clinical medical transcriptionist. us Harvey Domínguez III, MD LAB BLOOD ORDERABLE S Final Result [facility] [address] [place] [address], [facility] * (ABNORMAL) Urinalysis w/Rfl to Microscopic (11/04/2024 8:46 AM EDT) Only the most recent of4 resultswithin the time period is included. Color, UA Straw Yellow,Straw 11/04/2024 10:07 AM EDT [facility] Clarity, UA Clear Clear 11/04/2024 10:07 AM EDT [facility] Specific [place], UA 1.012 1.005 - 1.035 11/04/2024 10:07 AM EDT [facility] pH, UA 6.5 5.0 - 8.0 11/04/2024 10:07 AM EDT [facility] Protein, UA Trace(A) Negative mg/dL 11/04/2024 10:07 AM EDT [facility] Glucose, UA Negative Negative mg/dL 11/04/2024 10:07 AM EDT [facility] Ketones, UA Negative Negative mg/dL 11/04/2024 10:07 AM EDT [facility] Bilirubin, UA Negative Negative 11/04/2024 10:07 AM EDT [facility] Blood, UA Large(A) Negative 11/04/2024 10:07 AM EDT [facility] Nitrite, UA Negative Negative 11/04/2024 10:07 AM EDT [facility] Urobilinogen, UA <2.0 0.2 - 1.9 mg/dL 11/04/2024 10:07 AM EDT [facility] Leukocyte Esterase, UA Negative Negative 11/04/2024 10:07 AM EDT [facility] RBC, UA >100(H) 0 - 3 /HPF 11/04/2024 10:07 AM EDT [facility] WBC, UA 2 0 - 5 /HPF 11/04/2024 10:07 AM EDT [facility] Bacteria, UA Rare(A) None Seen /HPF 11/04/2024 10:07 AM EDT [facility] Hyaline Casts, UA 3(H) 0 - 2 /LPF 11/04/2024 10:07 AM EDT [facility] Urine 11/04/2024 8:46 AM EDT 11/04/2024 9:33 AM EDT us Caron Santos FACSIMILE OPERATOR URINE ORDERABLES Final Re sult [facility] [address] * (ABNORMAL) CBC (11/04/2024 8:46 AM EDT) Only the most recent of57 resultswithin the time period is included. WBC 7.2 3.8 - 10.8 10E3/uL 11/05/2024 12:05 AM EDT [facility] RBC 3.17(L) 4.20 - 5.80 10E6/uL 11/05/2024 12:05 AM EDT [facility] Hemoglobin 9.7(L) 13.2 - 17.1 g/dL 11/05/2024 12:05 AM EDT [facility] Hematocrit 28.6(L) 38.5 - 50.0 % 11/05/2024 12:05 AM EDT [facility] MCV 90.2 80.0 - 100.0 fL 11/05/2024 12:05 AM EDT [facility] MCH 30.5 27.0 - 33.0 pg 11/05/2024 12:05 AM EDT [facility] MCHC 33.8 32.0 - 36.0 g/dL 11/05/2024 12:05 AM EDT [facility] RDW 17.9(H) 11.0 - 15.0 % 11/05/2024 12:05 AM EDT [facility] Platelets 137(L) 140 - 400 10E3/uL 11/05/2024 12:05 AM EDT [facility] Platelet Estimate Decreased 11/05/2024 12:05 AM EDT [facility] MPV 8.4 7.5 - 11.5 fL 11/05/2024 12:05 AM EDT [facility] Whole Blood 11/04/2024 8:46 AM EDT 11/04/2024 11:01 PM EDT Narrative [facility] - 11/05/2024 12:05 AM EDT Standing orders to be drawn: Every Sunday and before 9am and prior to patient taking morning medications. Liver Transplant Fax results to [phone] Call Critical results to [phone] Peripheral blood smear was scanned per review criteria approved by the laboratory clinical medical transcriptionist. Harvey Domínguez III, MD LAB BLOOD ORDERABLE S Final Result Performing Organization Address City/[facility]/ZIP Co de Phone Number [facility] [address] [facility] * (ABNORMAL) Magnesium (11/04/2024 8:46 AM EDT) Only the most recent of62 resultswithin the time period is included. Magnesium 1.0(L) 1.5 - 2.5 mg/dL 11/04/2024 10:06 AM EDT [facility] Plasma 11/04/2024 8:46 AM EDT 11/04/2024 9:32 AM EDT us Caron Santos FACSIMILE OPERATOR LAB BLOOD ORDERABLES Denisse l Result [facility] [address] [facility] * EKG - scan (11/03/2024 9:07 AM EDT) Only the most recent of3 resultswithin the time period is included. us Scanning [facility] SCAN DOCS - NO RESULTS Final Res ult * Blood Transfusion - scan (11/03/2024 8:24 AM EDT) Only the most recent of2 resultswithin the time period is included. us Scanning [facility] SCAN DOCS - NO RESULTS Final Res ult * Perfusion Record - scan (11/03/2024 8:24 AM EDT) us Scanning [facility] SCAN DOCS - NO RESULTS Final Res ult * (ABNORMAL) POC Glucose Monitoring Device (11/02/2024 5:44 PM EDT) Only the most recent of64 resultswithin the time period is included. POC Glucose Monitoring Device 180(H) 70 - 100 mg/dL 11/02/2024 5:45 PM [facility] Blood 11/02/2024 5:44 PM EDT 11/02/2024 5:45 PM EDT us Harvey Domínguez III, MD POINT OF CARE TEST ORDERABLES Final Result Performing Organization Address City/State/[facility] Co de Phone Number [facility] [address] [place] [address], [facility] * X-ray Portable Abdomen [...] MD at 11/01/2024 1:10 PM EDT Shay Guzmán MD IMG DIAGNOSTIC IMAGI NG ORDERABLES Final Result * CT Abdomen and Pelvis WO IV [...] Adrenal gland: No focal nodule seen. Kidneys: [place] kidneys noted with nonobstructing calcifications on the right. Findings of postsurgical changes in the left [place] kidney. Mild right hydronephrosis without an obstructive [...] Adrenal gland: No focal nodule seen. Kidneys: [place] kidneys noted with nonobstructing calcifications on theright. Findings of postsurgical changes in the left [place] kidney. Mildright hydronephrosis without an obstructive course [...] MD at 10/31/2024 4:38 PM EDT Sveta Mojica MD IMG CT ORDERABLES Final Result * ECG 12-lead (MUSE) (10/31/2024 3:42 PM EDT) Only the most recent of10 resultswithin the time period is included. 10/31/2024 3:42 PM EDT Narrative MUSE - 11/02/2024 6:56 AM EDT Ventricular Rate: 78 BPM Atrial Rate: 78 BPM P-R Interval: 166 ms QRS Duration: 88 ms QT: 400 ms QTc: 456 ms P [place]: 49 degrees R [place]: 3 degrees T [place]: 14 degrees Diagnosis Line: NORMAL SINUS RHYTHM ^ NORMAL ECG ^ ^ Confirmed by MD JEANETTE, TORI ([id number]) on 11/02/2024 6:56:52 AM Priti Alex CNP ECG ORDERABLES Final Result MUSE * (ABNORMAL) Post Kidney Transplant Urine Culture (10/31/2024 1:18 PM EDT) Culture Result Enterococcus faecium, Vancomycin Resistant(A) [facility] Comment: 1,000- <10,000 cfu/mL Identified by [...] resistant Vancomycin SARMAD >=32: Resistant Comment:See Results us Priti Alex FACSIMILE OPERATOR MICROBIOLOGY - GENERAL ORDERA BLES Final Result [facility] [address] [place] [address], [facility] * US Duplex Omm-Cuv-Eysyvjz Comp (10/31/2024 10:19 AM EDT) Only the most recent of6 resultswithin the time period is included. Anatomical Region Laterality Modality Abdomen, Pelvis, Testes, Vascular Ultrasound 10/31/2024 9:21 AM EDT Impressions 10/31/2024 10:35 AM EDT IMPRESSION: RIGHT UPPER QUADRANT Normal sonographic appearance of the transplant liver with small volume of ascites. LIVER DOPPLER Duplex Doppler evaluation of transplant hepatic vasculature within normal limits. Report Verified by: Declan Cedra MD at 10/31/2024 10:35 AM EDT Narrative 10/31/2024 10:35 AM EDT EXAM: US ABDOMEN LIMITED EXAM: US DUPLEX [id number] COMPLETE INDICATION: Post-op liver transplant COMPARISON: None [...] visualized secondary to poor acoustic windows. The [place] right kidney measures 11.6 cm in length. [...] EXAM: US ABDOMEN LIMITED EXAM: US DUPLEX [id number] COMPLETE INDICATION: Post-op liver transplant COMPARISON: None [...] well visualized secondary to poor acousticwindows. The [place] right kidney measures 11.6 cm in length. [...] 10/31/2024 10:35 AM EDT us Beata Horner FACSIMILE OPERATOR IMG US ORDERABLES Final R esult * US Abdomen Limited (10/31/2024 10:19 AM EDT) Only the most recent of3 resultswithin the time period is included. Anatomical Region Laterality Modality Abdomen, Pelvis Ultrasound [...] EXAM: US ABDOMEN LIMITED EXAM: US DUPLEX [id number] COMPLETE INDICATION: Post-op liver transplant COMPARISON: None [...] visualized secondary to poor acoustic windows. The [place] right kidney measures 11.6 cm in length. [...] EXAM: US ABDOMEN LIMITED EXAM: US DUPLEX [id number] COMPLETE INDICATION: Post-op liver transplant COMPARISON: None [...] well visualized secondary to poor acousticwindows. The [place] right kidney measures 11.6 cm in length. [...] 10:35 AM EDT Beata Horner [facility] US ORDERABLES Final R esult * US Renal Transplant (10/31/2024 10:19 AM EDT) Only the most recent of2 resultswithin the time period is included. Anatomical Region Laterality Modality Abdomen, Pelvis Ultrasound [...] at 10/31/2024 10:29 AM EDT Beata Horner FACSIMILE OPERATOR IMG US ORDERABLES Final R esult * Prepare RBC, leukoreduced, 1 Units (10/29/2024 6:16 AM EDT) Only the most recent of7 resultswithin the time period is included. Product Code V3599Z19 HCLL Unit Number [id number] HCLL Dispense Status Presumed Transfused_PT HCLL Blood Expiration Date [id number] HCLL Coding System [id number] HCLL Blood Bank Product Shay Guzmán MD BLOOD BANK PRODUCT O RDERABLES Final Result HC[facility] * (ABNORMAL) TEG-Bypass/ECMO/Liver HN (Factor function, Platelet/Fibrin Clot Strength w/Clot Breakdown, Heparinase In All Channels) (10/29/2024 5:07 AM EDT) Only the most recent of13 resultswithin the time period is included. Citrated Kaolin Reaction Time (TEGECMOLIVER) 8.9 4.6 [...] BLOOD ORDERABLES Final Result Performing Organization Address [facility] Co de Phone Number [facility] [address] [facility]. [address] * Transfuse RBC Transfusion Rate: Per dept routine (10/28/2024 5:23 PM EDT) Only the most recent of17 resultswithin the time period is included. Shay Guzmán MD NURSING TREATMENT OR DERABLES - BLOOD ADMIN Final Result Performing Organization Address City/[facility] Co de Phone Number EXTERNAL * (ABNORMAL) Lactic Acid, STAT (10/28/2024 11:09 AM EDT) Only the most recent of13 resultswithin the time period is included. Lactate 0.3(L) 0.5 - 2.2 mmol/L 10/28/2024 11:37 AM EDT [facility] Plasma 10/28/2024 11:0 9 AM EDT 10/28/2024 11:15 AM EDT Carlos Marks MD LAB BLOOD ORDERABLES Final Result Performing Organization Address [facility] Co de Phone Number [facility] [address] [facility]. [address] * Protime-INR, STAT (10/28/2024 11:09 AM EDT) Only the most recent of41 resultswithin the time period is included. Protime 14.3 12.1 - 15.1 seconds 10/28/2024 [...] ORDERABLES Final Result [facility] [address] [place] [address], [facility] * Prepare Platelets, leukoreduced (10/28/2024 6:15 AM EDT) Only the most recent of6 resultswithin the time period is included. Product Code A4201C99 HCLL Unit Number [id number] HCLL Dispense Status Presumed Transfused_PT HCLL Blood Expiration Date HCLL Coding System [id number] HCLL Product Code R9996J84 HCLL Unit Number [id number] HCLL Dispense Status Presumed Transfused_PT HCLL Blood Expiration Date [id number] HCLL Coding System KQAP166 HCLL Attending Provider Unknown BLOOD BANK PRODUCT OR DERABLES Final Result HC[facility] * Prepare Fresh Frozen Plasma (10/28/2024 6:15 AM EDT) Only the most recent of5 resultswithin the time period is included. Product Code M9469Z42 HCLL Unit Number [id number] HCLL Dispense Status Released from Crossmatch_RE HCLL Blood Expiration Date HCLL Coding System GHFZ642 HCLL Product Code A2913T53 HCLL Unit Number [id number] HCLL Dispense Status Presumed Transfused_PT HCLL Blood Expiration Date HCLL Coding System LZEU612 HCLL Product Code D8889D75 HCLL Unit Number [id number] HCLL Dispense Status Released from Crossmatch_RE HCLL Blood Expiration Date HCLL Coding System YYLX211 HCLL Product Code N1933X90 HCLL Unit Number [id number] HCLL Dispense Status Presumed Transfused_PT HCLL Blood Expiration Date 118621731166 HCLL Coding System BUCF329 HCLL Product Code S6498Q79 HCLL Unit Number [id number] HCLL Dispense Status Released from Crossmatch_RE HCLL Blood Expiration Date [id number] HCLL Coding System [id number] HCLL us Attending Provider Unknown BLOOD BANK PRODUCT OR DERABLES Final Result [facility] * Prepare Cryoprecipitate, 1 Units (10/28/2024 6:15 AM EDT) Only the most recent of4 resultswithin the time period is included. Product Code D2708F40 HCLL Unit Number [id number] HCLL Dispense Status Presumed Transfused_PT HCLL Blood Expiration Date HCLL Coding System DEMC214 HCLL Product Code T0234A24 HCLL Unit Number [id number] HCLL Dispense Status Presumed Transfused_PT HCLL Blood Expiration Date 270890319872 HCLL Coding System [id number] HCLL Blood Bank Product John Pina MD BLOOD BANK PRODUCT ORDERABLES F inal Result HC[facility] * (ABNORMAL) Blood Gas, Arterial, STAT (10/27/2024 2:40 PM EDT) Only the most recent of6 resultswithin the time period is included. O2 Sat, Arterial 98 10/27/2024 2:46 PM [...] 2:46 PM EDT Post extubation us John Coulter MD LAB BLOOD ORDERABLES Final R esult [facility] [address] [id number] [[email or web address]] * CARISA Rhythm Strip - Scan (10/27/2024 9:25 AM EDT) Only the most recent of14 resultswithin the time period is included. us Scanning Uchhim SCAN DOCS - NO RESULTS Final Res ult * X-ray Portable Chest (10/27/2024 8:58 AM EDT) Only the most recent of8 resultswithin the time period is included. Anatomical [...] MD at 10/27/2024 9:22 AM EDT John Coulter MD IMG DIAGNOSTIC IMAGING ORDER PAL Final Result * (ABNORMAL) Katie-Watkins virus VCA IgG Antibody [...] BLOOD ORDERABLES Final Result Performing Organization Address [facility] Co de Phone Number [facility] [address] [facility]. [address] * Hemoglobin A1c (10/27/2024 8:00 AM EDT) Only the most recent of2 resultswithin the time period is included. Hemoglobin A1C 5.0 4.0 - 5.6 % [...] BLOOD ORDERABLES Final Result Performing Organization Address City/[facility]/ZIP Co de Phone Number [facility] [address] * X-ray Abdomen AP view (10/27/2024 [...] IMAG ING ORDERABLES Final Result * Transfuse Platelets (10/27/2024 6:09 AM EDT) Only the most recent of7 resultswithin the time period is included. Ben Blake MD NURSING TREATMENT ORDERABLES - BLOOD ADMIN Final Result * (ABNORMAL) Arterial Blood Gas Panel (10/27/2024 6:09 AM EDT) Only the most recent of2 resultswithin the time period is included. O2Sat (ABGP) 100 10/27/2024 6:17 AM EDT [...] ORDERABLES Final Re sult [facility] [address] [place], [place] [address] [[email or web address]] * Transfuse Fresh Frozen Plasma (10/27/2024 5:49 AM EDT) Only the most recent of15 resultswithin the time period is included. Ben Blake MD NURSING TREATMENT ORDERABLES - BLOOD ADMIN Final Result * Transfuse Cryoprecipitate (10/27/2024 4:56 AM EDT) Only the most recent of9 resultswithin the time period is included. Ben Blake MD NURSING TREATMENT ORDERABLES - BLOOD ADMIN Final Result * Hox - HLA Antibody Report (10/27/2024 4:16 AM EDT) 10/27/2024 4:16 AM EDT Abdulkadir Gaspar MD LAB BLOOD ORDERABLES Final Resul t [facility] [address] [place] [address] * Surgical Pathology Exam (10/27/2024 2:38 AM EDT) Only the most recent of2 resultswithin the time period is included. 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 baseline renal biopsy ; B. right lobe liver biopsy; C. left lobe liver biopsy CPT Code(s): 33386 X 1; 83258 X 2; 52832 X 4 Additional Information: FINAL DIAGNOSIS: A. [...] formalin, labeled with the patient's name Blair Anderson and baseline renal biopsy , is a 1.3 x 0.5 x 0.4 cm wedge of apparent renal parenchyma, which is entirely submitted in cassette [id number] A1. (NAA Mckeon/rr) B. Received in formalin, labeled with the patient's name Blair Anderson and right lobe liver biopsy are two green-brown tissue cores measuring 1.8 and 2.0 cm in length, each with a diameter of 0.1 cm, which are entirely submitted between blue biopsy sponges in cassette [id number] B1-B2. (NAA Mckeon/ns) C. Received in formalin, labeled with the patient's name Blair Anderson and left lobe liver biopsy are two [...] Pathologist signing this report is located at [facility], [address] [place] [address], [facility] [phone], CLIA ID: [id number] ADDENDUM: A. Kidney, allograft, baseline, wedge biopsy: [...] Pathologist signing this report is located at [facility], [address] [place] [address], [place], [place], [facility], , CLIA ID: [id number] Kemar Sahni MD PATHOLOGY/CYTOLOGY ORDERABL ES Edited Result - Final Performing Organization Address [facility]/ZIP Co de Phone Number [facility] * Routine Culture plus Stain (10/27/2024 2:15 AM EDT) Only the most recent of2 resultswithin the time period is included. Gram Stain Result No Polymorphonuclear Leukocytes Seen [facility] Gram Stain Result No Organisms Seen; [facility] Culture Result No Growth After 3 Days [facility] Fluid SPECIMEN FROM KIDNEY / Unknown 10/27/2024 2:15 AM EDT 10/27/2024 4:24 AM EDT Narrative [facility] - 10/30/2024 9:26 AM EDT 1) perfusate Harvey Domínguez III, MD MICROBIOLOGY - GENE RAL ORDERABLES Final Result Performing Organization Address [facility] Co de Phone Number [facility] [address] [place] [address] * Anaerobic culture (10/27/2024 2:15 AM EDT) Only the most recent of2 resultswithin the time period is included. Culture Result No Anaerobes Isolated in 5 Days [facility] Fluid SPECIMEN FROM KIDNEY / Unknown 10/27/2024 2:15 AM EDT 10/27/2024 4:24 AM EDT Narrative [facility] - 10/31/2024 11:43 AM EDT 1) perfusate Harvey Domínguez III, MD MICROBIOLOGY - GENE RAL ORDERABLES Final Result Performing Organization Address [facility]/ZIP Co de Phone Number [facility] [address] [place] [address] * (ABNORMAL) TEG-Standard Global Hemostasis (Rapid TEG with Heparin Effect, Contains a Baseline TEG) (10/27/2024 1:51 AM EDT) Only the most recent of2 resultswithin the time period is included. [facility] Citrated Kaolin Reaction Time (TEGHEPARINASE) [...] Resu lt [facility] [address] [place] [address], [facility] * Calcium Free, Serum (10/27/2024 12:13 AM EDT) Only the most recent of3 resultswithin the time period is included. Free Calcium, Ser 5.20 4.40 - 5.40 [...] performance characteristics determined by [facility] which is certified under [...] ORDERABLES Final Resu lt [facility] [address] [place], [place] [id number], [facility] * Repeat Crossmatch (Recipient Sample) (10/26/2024 4:42 PM EDT) Repeat Cx - Recipient The request and specimen(s) for this test have been received and transported to the [facility] [place] at [address] [place] [address]. The [facility] [place] will report results directly to the client. 10/26/2024 4:49 PM EDT [facility] Whole Blood 10/26/2024 4:42 PM EDT 10/26/2024 4:49 PM EDT Narrative [facility] - 10/26/2024 4:49 PM EDT To be sent to [facility] for Donor UNOS#[id number] cross match with Blair Anderson Sveta Mojica MD LAB BLOOD ORDERABLES Final Resu lt Performing Organization Address City/[facility]/ZIP Co de Phone Number [facility] [address] [facility] * (ABNORMAL) Fibrinogen (10/26/2024 6:10 AM EDT) Only the most recent of2 resultswithin the time period is included. Fibrinogen 160(L) 218 - 406 mg/dL 10/26/2024 6:41 AM EDT [facility] Plasma 10/26/2024 6:10 AM EDT 10/26/2024 6:26 AM EDT Sveta Mojica MD LAB BLOOD ORDERABLES Final Resu lt Performing Organization Address [facility] Co de Phone Number [facility] [address] [facility]. [address] * (ABNORMAL) POC INR (10/26/2024 5:16 AM EDT) Only the most recent of6 resultswithin the time period is included. Prothrombin Time INR, POC 2.4(H) 0.8 - [...] Result Performing Organization Address [facility] Co de Phone Number [facility] [address] * POC Lactate (10/26/2024 5:14 AM EDT) Only the most recent of6 resultswithin the time period is included. POC Lactate 1.76 0.50 - 2.20 mmol/L 10/26/2024 5:31 AM EDT [facility] Blood, Arterial 10/26/2024 5 :14 AM EDT 10/26/2024 5:31 AM EDT us Harvey Domínguez III, MD POINT OF CARE TEST ORDERABLES Final Result Performing Organization Address City/[facility]/ZIP Co de Phone Number [facility] [address] [place] [address]. [address] * POC TCO2 (10/26/2024 5:14 AM EDT) Only the most recent of6 resultswithin the time period is included. POC TCO2, Arterial 23 23 - 27 mmol/L 10/26/2024 5:31 AM EDT [facility] Blood, Arterial 10/26/2024 5 :14 AM EDT 10/26/2024 5:31 AM EDT Harvey Domínguez III, MD POINT OF CARE TEST ORDERABLES Final Result Performing Organization Address [facility] Co de Phone Number [facility] [address] [place] [address]. [address] * POC Sodium (10/26/2024 5:14 AM EDT) Only the most recent of6 resultswithin the time period is included. POC Sodium 138 136 - 146 mmol/L 10/26/2024 5:31 AM EDT [facility] Blood, Arterial 10/26/2024 5 :14 AM EDT 10/26/2024 5:31 AM EDT us Harvey Domínguez III, MD POINT OF CARE TEST ORDERABLES Final Result Performing Organization Address City/[facility]/ZIP Co de Phone Number [facility] [address] [place] [address]. [address] * (ABNORMAL) POC Potassium (10/26/2024 5:14 AM EDT) Only the most recent of6 resultswithin the time period is included. POC Potassium 2.8(LL) 3.5 - 5.3 mmol/L 10/26/2024 5:31 AM EDT [facility] Blood, Arterial 10/26/2024 5 :14 AM EDT 10/26/2024 5:31 AM EDT us Harvey Domínguez III, MD POINT OF CARE TEST ORDERABLES Final Result Performing Organization Address City/[facility] Co de Phone Number [facility] [address] [facility]. [address] * (ABNORMAL) POC PO2 (10/26/2024 5:14 AM EDT) Only the most recent of6 resultswithin the time period is included. POC pO2, Arterial 133(H) 80 - 100 mm Hg 10/26/2024 5:31 AM EDT [facility] Blood, Arterial 10/26/2024 5 :14 AM EDT 10/26/2024 5:31 AM EDT us Harvey Domínguez III, MD POINT OF CARE TEST ORDERABLES Final Result Performing Organization Address [facility] Co de Phone Number [facility] [address] [facility] * POC PCO2 (10/26/2024 5:14 AM EDT) Only the most recent of6 resultswithin the time period is included. POC pCO2, Arterial 45 35 - 45 mm Hg 10/26/2024 5:31 AM EDT [facility] Blood, Arterial 10/26/2024 5 :14 AM EDT 10/26/2024 5:31 AM EDT us Harvey Domínguez III, MD POINT OF CARE TEST ORDERABLES Final Result Performing Organization Address City/[facility] Co de Phone Number [facility] [address] [facility]. [address] * (ABNORMAL) POC O2 SAT (10/26/2024 5:14 AM EDT) Only the most recent of6 resultswithin the time period is included. POC O2 Saturation, Arterial 99(H) 95 - 98 % 10/26/2024 5:31 AM EDT [facility] Blood, Arterial 10/26/2024 5 :14 AM EDT 10/26/2024 5:31 AM EDT us Harvey Domínguez III, MD POINT OF CARE TEST ORDERABLES Final Result Performing Organization Address [facility]/ZIP Co de Phone Number [facility] [address]. [address] * POC HCO3 (10/26/2024 5:14 AM EDT) Only the most recent of6 resultswithin the time period is included. POC HCO3, Arterial 22 22 - 26 mmol/L 10/26/2024 5:31 AM EDT [facility] Blood, Arterial 10/26/2024 5 :14 AM EDT 10/26/2024 5:31 AM EDT us Harvey Domínguez III, MD POINT OF CARE TEST ORDERABLES Final Result Performing Organization Address [facility]/ZIP Co de Phone Number [facility] [address] [facility]. [address] * POC Chloride (10/26/2024 5:14 AM EDT) Only the most recent of6 resultswithin the time period is included. POC Chloride 104 98 - 110 mmol/L 10/26/2024 5:31 AM EDT [facility] Blood, Arterial 10/26/2024 5 :14 AM EDT 10/26/2024 5:31 AM EDT us Harvey Domínguez III, MD POINT OF CARE TEST ORDERABLES Final Result Performing Organization Address [facility] Co de Phone Number [facility] [address] [facility]. [address] * (ABNORMAL) POC Base Excess (10/26/2024 5:14 AM EDT) Only the most recent of6 resultswithin the time period is included. POC Base Excess, Arterial -5(L) -2 - 3 mmol/L 10/26/2024 5:31 AM EDT [facility] Blood, Arterial 10/26/2024 5 :14 AM EDT 10/26/2024 5:31 AM EDT us Harvey Domínguez III, MD POINT OF CARE TEST ORDERABLES Final Result Performing Organization Address [facility] Co de Phone Number [facility] [address] [facility]. [address] * POC Anion Gap (10/26/2024 5:14 AM EDT) Only the most recent of6 resultswithin the time period is included. POC Anion Gap, Arterial 12 3 - 16 mmol/L 10/26/2024 5:31 AM EDT [facility] Blood, Arterial 10/26/2024 5 :14 AM EDT 10/26/2024 5:31 AM EDT us Harvey Domínguez III, MD POINT OF CARE TEST ORDERABLES Final Result Performing Organization Address City/[facility] Co de Phone Number [facility] [address] [facility]. [address] * POC Sample Type (10/26/2024 5:14 AM EDT) Only the most recent of6 resultswithin the time period is included. POC Sample Type Arterial 10/26/2024 5:31 AM EDT [facility] Blood, Arterial 10/26/2024 5 :14 AM EDT 10/26/2024 5:31 AM EDT Harvey Domínguez III, MD POINT OF CARE TEST ORDERABLES Final Result Performing Organization Address [facility] Co de Phone Number [facility] [address] * (ABNORMAL) POC pH (10/26/2024 5:14 AM EDT) Only the most recent of6 resultswithin the time period is included. POC pH, Arterial 7.29(L) 7.35 - 7.45 10/26/2024 5:31 AM EDT [facility] Blood, Arterial 10/26/2024 5 :14 AM EDT 10/26/2024 5:31 AM EDT Harvey Domínguez III, MD POINT OF CARE TEST ORDERABLES Final Result Performing Organization Address [facility] de Phone Number [facility] [address] [place] [address]. [address] * (ABNORMAL) POC hematocrit (10/26/2024 5:14 AM EDT) Only the most recent of6 resultswithin the time period is included. POC Hematocrit 28.0(L) 40 - 52 % 10/26/2024 5:31 AM EDT [facility] Blood, Arterial 10/26/2024 5 :14 AM EDT 10/26/2024 5:31 AM EDT Harvey Domínguez III, MD POINT OF CARE TEST ORDERABLES Final Result Performing Organization Address [facility] Co de Phone Number [facility] [address] * (ABNORMAL) POC Ionized Calcium (10/26/2024 5:14 AM EDT) Only the most recent of6 resultswithin the time period is included. POC Ionized Calcium 5.50(H) 4.50 - 5.30 mg/dL 10/26/2024 5:31 AM EDT [facility] Blood, Arterial 10/26/2024 5 :14 AM EDT 10/26/2024 5:31 AM EDT us Harvey Domínguez III, MD POINT OF CARE TEST ORDERABLES Final Result Performing Organization Address [facility] Co de Phone Number [facility] [address] * (ABNORMAL) POC Glucose (10/26/2024 5:14 AM EDT) Only the most recent of6 resultswithin the time period is included. POC Glucose, Arterial 183(H) 70 - 100 mg/dL 10/26/2024 5:31 AM EDT [facility] Blood, Arterial 10/26/2024 5 :14 AM EDT 10/26/2024 5:31 AM EDT us Harvey Domínguez III, MD POINT OF CARE TEST ORDERABLES Final Result Performing Organization Address [facility] Co de Phone Number [facility] [address] [facility]. [address] * (ABNORMAL) POC Hemoglobin (10/26/2024 5:14 AM EDT) Only the most recent of6 resultswithin the time period is included. POC Hemoglobin 9.5(L) 14.0 - 18.0 g/dL 10/26/2024 5:31 AM EDT [facility] Blood, Arterial 10/26/2024 5 :14 AM EDT 10/26/2024 5:31 AM EDT us Harvey Domínguez III, MD POINT OF CARE TEST ORDERABLES Final Result Performing Organization Address [facility] Co de Phone Number [facility] [address] [facility]. [address] * (ABNORMAL) TEG-Global With Lysis (Baseline [...] City/State/[facility] Co de Phone Number [facility] [address] * CENTRAL LINE SINGLE LUMEN PERFORMABLE (10/25/2024 11:13 PM EDT) Narrative Ben Blake MD - 10/25/2024 11:13 PM EDT Ben Blake MD 10/26/2024 7:45 PM [place]ne Emily Cath Date/Time: 10/25/2024 11:13 PM Performed [...] IV THERAPY ORDERABLES Final R esult * Urine culture (10/25/2024 11:08 PM EDT) [...] ORDERABLES Final Result [facility] [address] [place] [id number], [facility] * Insert Arterial Line (10/25/2024 10:45 PM EDT) Ben Poep MD - 10/25/2024 10:45 PM EDT Ben [...] IV THERAPY ORDERABLES Final R esult * Hepatitis A Antibody Total (10/25/2024 10:17 PM EDT) Only the most recent of3 resultswithin the time period is included. Anti-HAV Total (IgG + IgM) Nonreactive 10/25/2024 11:13 PM EDT [facility] Serum 10/25/2024 10:1 7 PM EDT 10/25/2024 10:17 PM EDT Narrative [facility] - 10/25/2024 11:13 PM EDT HAV antibodies not detected us Aysha Gill MD LAB BLOOD ORDERABLES F inal Result Performing Organization Address [facility] Co de Phone Number [facility] [address] [facility]. [address] * Iron Studies (Iron + TIBC) (10/25/2024 10:17 PM EDT) Only the most recent of2 resultswithin the time period is included. Iron 128 50 - 212 ug/dL 10/25/2024 [...] PM EDT 10/25/2024 10:17 PM EDT us Aysha Gill MD LAB BLOOD ORDERABLES F inal Result Performing Organization Address [facility] Co de Phone Number [facility] [address] [facility]. [address] * Hepatitis B Core Antibody (10/25/2024 [...] individual is not infected with HBV. us Aysha Gill MD LAB BLOOD ORDERABLES F inal Result [facility] [address] [facility]. [address] * Hepatitis C Antibody (10/25/2024 10:17 PM EDT) Only the most recent of4 resultswithin the time period is included. HCV Ab Nonreactive Nonreactive 10/25/2024 11:16 PM EDT [facility] Comment:Health Department no tified in accordance with reportable infectious disease guidelines. Serum 10/25/2024 10:1 7 PM EDT 10/25/2024 10:17 PM EDT Narrative [facility] - 10/25/2024 11:16 PM EDT Antibodies to HCV not detected; does not exclude the possibility of exposure to HCV. Aysha Gill MD LAB BLOOD ORDERABLES F inal Result Performing Organization Address [facility]/ZIP Co de Phone Number [facility] [address] [facility]. [address] * HIV 1+2 Antibody/Antigen with Reflex (10/25/2024 10:17 PM EDT) Only the most recent of2 resultswithin the time period is included. HIV 1+2 AB/AGN Nonreactive Nonreactive 10/25/2024 11:03 PM EDT [facility] Serum 10/25/2024 10:1 7 PM EDT 10/25/2024 10:16 PM EDT Narrative [facility] - 10/25/2024 11:03 PM EDT \HIVRNR Aysha Gill MD LAB BLOOD ORDERABLES F inal Result Performing Organization Address City/[facility]/ZIP Co de Phone Number [facility] [address] [facility]. [address] * (ABNORMAL) Hepatitis B Surface Antibody, Quantitati (10/25/2024 10:17 PM EDT) Only the most recent of3 resultswithin the time period is included. HBSAB NUMBER 10.70(H) 0.00 - 9.99 mIU/mL 10/25/2024 11:52 PM EDT [facility] Hep B S Ab Equivocal (A) Nonreactive 10/25/2024 11:52 PM EDT [facility] Serum 10/25/2024 10:1 7 PM EDT 10/25/2024 10:17 PM EDT us Aysha Gill MD LAB BLOOD ORDERABLES F inal Result Performing Organization Address City/[facility] Co de Phone Number [facility] [address] [facility]. [address] * Hepatitis B surface antigen (10/25/2024 10:17 PM EDT) Only the most recent of4 resultswithin the time period is included. Hep B Surface Ag Nonreactive Nonreactive 10/25/2024 11:12 PM EDT [facility] Comment:Health Department no tified in accordance with reportable infectious disease guidelines. Serum 10/25/2024 10:1 7 PM EDT 10/25/2024 10:17 PM EDT Narrative [facility] - 10/25/2024 11:12 PM EDT Specimen is considered negative for HBsAg. Result Tiburcio Gill MD LAB BLOOD ORDERABLES F inal Result Performing Organization Address City/[facility]/ZIP Co de Phone Number [facility] [address] [facility]. [address] * (ABNORMAL) APTT, NO ANTICOAGULANT (10/25/2024 10:17 PM EDT) aPTT 41.7(H) 25.5 - 35.0 seconds 10/25/2024 10:36 PM EDT [facility] Plasma 10/25/2024 10:1 7 PM EDT 10/25/2024 10:17 PM EDT us Aysha Gill MD LAB BLOOD ORDERABLES F inal Result [facility] [address] [facility]. [address] * PTH (10/25/2024 10:17 PM EDT) PTH 36.0 12.0 - 88.0 pg/mL 10/25/2024 11:01 PM EDT [facility] Serum 10/25/2024 10:1 7 PM EDT 10/25/2024 10:17 PM EDT us Aysha Gill MD LAB BLOOD ORDERABLES F inal Result Performing Organization Address [facility] Co de Phone Number [facility] [address] [facility]. [address] * (ABNORMAL) Ferritin (10/25/2024 10:17 PM EDT) Only the most recent of2 resultswithin the time period is included. Pathologist [facility] Ferritin 623.2(H) 23.9 - 336.2 ng/mL 10/25/2024 11:02 PM EDT [facility] Serum 10/25/2024 10:1 7 PM EDT 10/25/2024 10:17 PM EDT us Aysha Gill MD LAB BLOOD ORDERABLES F inal Result Performing Organization Address City/[facility]/ZIP Co de Phone Number [facility] [address] [facility]. [address] * (ABNORMAL) Venous Blood Gas, Line/Syringe (10/25/2024 10:00 PM EDT) Only the most recent of11 resultswithin the time period is included. PH-Line Draw 7.38 7.32 - 7.42 10/25/2024 [...] PM EDT 10/25/2024 10:04 PM EDT us Aysha Gill MD LAB BLOOD ORDERABLES F inal Result [facility] [address] [place] [address], [facility] * Donor Specific Antibody (DSA) (10/25/2024 10:00 PM EDT) AntiDonor Antibodies The request and specimen(s) for this test have been received and transported to the [facility] at [address] [place] [address]. The [facility] [place] will report results directly to the client. 10/25/2024 10:20 PM EDT [facility] Comment:Testing performed by [facility], [facility], [address] [place] [address]. The [facility] report has been forwarded to the appropriate ordering location. Please refer to this report for patient results. Serum 10/25/2024 10:0 0 PM EDT 10/25/2024 10:20 PM EDT us Aysha Gill MD LAB BLOOD ORDERABLES F inal Result Performing Organization Address [facility] Co de Phone Number [address] * Hepatitis C RNA, Quant Reflex to Genotyp (10/25/2024 8:18 PM EDT) Pathologist [facility] International Units Not Detected IU/mL [...] log 10 IU/mL 10/27/2024 11:03 AM EDT [facility] Comment:HCV RNA not detected . Plasma 10/25/2024 8:18 PM EDT 10/25/2024 10:27 PM EDT Aysha Gill MD LAB BLOOD ORDERABLES F inal Result Performing Organization Address [facility] Co de Phone Number [facility] [address] [place] [address]. [address] * Toxoplasma gondii antibody, IgG (10/25/2024 8:18 PM EDT) Only the most recent of2 resultswithin the time period is included. Pathologist [facility] Toxoplasma Gondii IgG <3.0 0.0 - 7.1 IU/mL 10/27/2024 7:55 AM EDT [facility] Comment: Negative <7.2 Equivocal 7.2 - 8.7 Positive >8.7 Serum 10/25/2024 8:18 PM EDT 10/27/2024 8:06 AM EDT Narrative [facility] - 10/27/2024 8:06 AM EDT PERFORMED AT: [address] [id number] HEADING MAKER: Bassam Khalil, PhD PHONE: [phone] Aysha Gill MD LAB BLOOD ORDERABLES F inal Result [facility] [address] [facility]. [address] * ABO/Rh (10/25/2024 7:46 PM EDT) Only the most recent of6 resultswithin the time period is included. ABO Grouping O 10/25/2024 10:23 PM EDT [facility] Rh Type Positive 10/25/2024 10:23 PM EDT [facility] Blood 10/25/2024 7:46 PM EDT 10/25/2024 9:54 PM EDT Ben Blake MD BLOOD BANK TEST ORDERABLES Fi nal Result Performing Organization Address [facility] Co de Phone Number [facility] [address] [place] [address]. [address] * Antibody Screen (10/25/2024 7:46 PM EDT) Only the most recent of4 resultswithin the time period is included. Antibody Screen Negative 10/25/2024 10:41 PM EDT [facility] Blood 10/25/2024 7:46 PM EDT 10/25/2024 9:54 PM EDT Narrative [facility] - 10/25/2024 10:44 PM EDT Testing performed by [facility] Transfusion Service Ben Blake MD BLOOD BANK TEST ORDERABLES Fi nal Result Performing Organization Address City/[facility]/ZIP Co de Phone Number [facility] [address] [facility]. [address] * [facility] - HLA Antibody-Detailed Report (10/22/2024 12:32 PM EDT) 10/22/2024 12:3 2 PM EDT Abdulkadir Gaspar MD LAB BLOOD ORDERABLES Final Resul t Performing Organization Address City/[facility]/ZIP Co de Phone Number [facility] [address] [place] [address] * (ABNORMAL) Renal Function Panel w/o EGFR (10/22/2024) Only the most recent of3 resultswithin the time period is included. Glucose 107 mg/dL BUN 62(A) 4 - 21 mg/dL CO2 18 13 - 22 mmol/L Creatinine 3.30(A) 0.6 - 1.3 mg/dL Potassium 3.7 3.4 - 5.3 mmol/L Sodium 133(A) 137 - 147 mmol/L Chloride 106 99 - 108 mmol/L Phosphorus 5.8(A) 2.5 - 4.9 mg/dL Calcium 9 8.7 - 10.7 mg/dL EGFR 21 mg/dL Albumin 3.2(A) 3.5 - 5.0 g/dL Blood Ebenezer Martin MD LAB BLOOD ORDERABLES Denisse l Result * HOX - HLA CROSSMATCH + Detailed Antibody (10/20/2024 5:04 PM EDT) 10/20/2024 5:04 PM EDT Abdulkadir Gaspar MD LAB BLOOD ORDERABLES Final Resul t Performing Organization Address [facility]/ZIP Co de Phone Number [facility] [address] [place] [address] * [facility] - ABO Typing Report (10/20/2024 5:03 PM EDT) 10/20/2024 5:03 PM EDT Abdulkadir Gaspar MD LAB BLOOD ORDERABLES Final Resul t Performing Organization Address City/[facility]/ZIP Co de Phone Number [facility] [address] [place] [address] * X-ray Comparison Images (10/20/2024 9:10 AM EDT) Only the most recent of7 resultswithin the time period is included. Narrative EXTERNAL - 10/20/2024 9:10 AM EDT Images associated with this accession number were presented to us for comparison to an examination performed here. us Provider Not In System IMG DIAGNOSTIC IMAGING OR DERABLES Final Result Performing Organization Address City/[facility] Co de Phone Number EXTERNAL * PRA-HLA Ab Screen (Cytotoxic) (10/15/2024 6:08 AM EDT) Pathologist [facility] The request and specimen(s) for this test have been received and transported to the [facility] at [address] [place] [address]. The [facility] will report results directly to the client. 10/15/2024 6:42 AM EDT [facility] Comment:The request and spec imen(s) for this test have been received and transported to the [facility] at [address] [place] [address]. The [facility] will report results directly to the client. Serum 10/15/2024 6:08 AM EDT 10/15/2024 6:42 AM EDT us Cosmo Pacheco MD LAB BLOOD ORDERABLES Final Resul t Performing Organization Address [facility] Co de Phone Number [facility] [address] [place] [address] * LEFT HEART CATH (10/14/2024 2:09 PM EDT) 10/14/2024 11:4 7 AM EDT Narrative [facility] - 10/14/2024 9:27 PM EDT *[facility]* Cardiac Center Director Lead Teacher [address] [place] [address] CATHETERIZATION LAB STUDY Patient: Blair Anderson Age: [...] manner. 3. Right radial artery access. A [id number] Glidesheath - Slender - .021 sheath was [...] + !LV pressure s/d, ed !112/, 22, dP/pp=4929bl Hg/s! + + + !Aortic pressure s/d (m)!106/58 (75) ! + + + ATTESTATION: Dr. Matta was present for the entire procedure. Dr. Jay Quan was the initial author of this report. Prepared and electronically signed by Irving Matta MD [id number]:50 Procedure Note Irving Matta MD - 10/14/2024 *[facility]* Cardiac Center Director Lead Teacher [address] [place] [address] CATHETERIZATION LAB STUDY Patient: Blair Anderson Age: [...] manner. 3. Right radial artery access. A [id number] Glidesheath - Slender - .021sheath was advanced [...] complications. Contrast: Omnipaque 350 25ml (total dose). Fnaxddoiu556 125ml (wasted). Radiation: Fluoroscopy time: 15min. Total [...] + !LV pressure s/d, ed !112/, 22, dP/rx=4698ws Hg/s! + + + !Aortic pressure s/d (m)!106/58 (75) ! + + + ATTESTATION: Dr. Matta was present for the entire procedure. Dr. Jay Quan wasthe initial author of this report. Prepared and electronically signed by Irving Matta MD [id number]:50 [place] [id number] Final Result [facility] * Cardiac Cath Documents Scan (10/14/2024 2:06 [...] mL of GADOBUTROL 1 MMOL/ML INTRAVENOUS SYRINGE ([facility]) administered intravenously COMPARISON: CT 09/03/2024. [...] mL of GADOBUTROL 1 MMOL/ML INTRAVENOUS SYRINGE ([facility])administered intravenously COMPARISON: CT 09/03/2024. Ultrasound [...] 5:35 AM EDT) Only the most recent of8 resultswithin the time period is included. Ammonia 203(HH) 27 - 90 ug/dL 10/13/2024 7:16 AM EDT [facility] Comment: HEMOLYSIS EVIDENT. RESULTS MAY BE INFLUENCED. Critical Result [id number] Called to and read back by: KEY MELO RN at: 10/13/2024 07:15:55 by:NISREEN Plasma 10/13/2024 5:35 AM EDT 10/13/2024 6:19 AM EDT us Ellis Mays DO LAB BLOOD ORDERABLES Final Resul t [facility] [address] * Vancomycin, random (10/11/2024 3:02 AM EDT) Only the most recent of5 resultswithin the time period is included. Vancomycin Random 13.4 ug/mL 10/11/2024 3:37 AM EDT [facility] Comment:Reference range not established for this test. Plasma 10/11/2024 3:02 AM EDT 10/11/2024 3:08 AM EDT us Jodi Ortiz PharmD LAB BLOOD ORDERABLES Final Result [facility] [address] * IR Paracentesis incl imaging guide [...] diagnostic and therapeutic paracentesis. Bakari Wahl CNP, Twx Operator Procedure and Findings: The procedure was [...] Using ultrasound guidance, a 10 cm, 5-F LocalSort Centesis catheter was placed into the right [...] for diagnostic andtherapeutic paracentesis. Bakari Wahl CNP, Twx Operator Procedure and Findings: The procedure was [...] Using ultrasound guidance, a 10 cm, 5-F LocalSort Centesis catheter was placedinto the right lower [...] is included. Gram Stain Result Cytospin Results: [facility] Gram Stain Result Polymorphonuclear Leukocytes Seen; [facility] Gram Stain Result No Organisms Seen; [facility] Culture Result No Growth After 5 Days [facility] Fluid ABDOMEN / Unknown 10/10/2024 1:51 PM EDT 10/10/2024 3:56 PM EDT us Gerri Peterson MD MICROBIOLOGY - GENERAL ORDERABL ES Final Result [facility] [address] * (ABNORMAL) Body fluid cell count (10/10/2024 1:51 PM EDT) Only the most recent of5 resultswithin the time period is included. Color, Fluid Yellow(A) Colorless, Pale Yellow 10/10/2024 5:29 PM EDT [facility] Clarity, Fluid Clear 10/10/2024 5:29 PM EDT [facility] Neutrophil %, Fluid 9 % 10/10/2024 5:29 PM EDT [facility] Lymphocytes %, Fluid 13 % 10/10/2024 5:29 PM EDT [facility] Mesothelial %, Fluid 6 % 10/10/2024 5:29 PM EDT [facility] Macrophage %, Fluid 72 % 10/10/2024 5:29 PM EDT [facility] RBC, Fluid 2,662 /uL 10/10/2024 4:41 PM EDT [facility] Total Nucleated Cells, Fluid 89 /uL 10/10/2024 4:41 PM EDT [facility] Comment:Total Nucleated Cell s represent WBCs and other nucleated cells in the fluid such as lining cells. Ascitic Fluid ABDOMEN / Unknown 1:51 PM EDT 10/10/2024 3:56 PM EDT us Gerri Peterson MD BODY FLUIDS AND STOOLS ORDERABL ES Final Result [facility] [address] * UPPER GI ENDOSCOPY (10/10/2024 11:48 AM EDT) 10/10/2024 11:4 8 AM EDT Narrative [facility] - 10/10/2024 12:34 PM EDT [id number] Procedure Date: 10/10/2024 11:48 AM Patient Name: Blair Anderson Date of : 1985 Admit Type: Inpatient Age: 39 Gender: Male Note Status: Finalized Attending MD: Lino Soto MD, [id number] Procedure: Upper GI endoscopy Indications: Gastroesopahgeal variceal [...] verified by the physician, the nurse, the mail sorting supervisor and the hydro technician in the pre-procedure area in the [...] to hypotension Procedure Code(s): --- Professional --- 52667, GC, Esophagogastroduodenoscopy, flexible, transoral; diagnostic, including collection of specimen(s) by brushing or washing, when performed (separate procedure) Diagnosis Code(s): --- Professional --- I85.00, Esophageal varices without bleeding K76.6, Portal hypertension K31.89, Other diseases of stomach and duodenum CPT copyright 2022 [employer]. All rights reserved. The codes documented in this report are preliminary and upon contract runner review may be revised to meet current [...] 12:10:16 PM Scope Out: 12:17:[address] [place] [address], [address] us Provider Not In System PROCEDURE/MINOR SURGICAL ORDERABLES Final Result [facility] * ECHO STRESS W/ CONTRAST (10/09/2024 4:37 PM EDT) Anatomical Region Laterality Modality Chest Ultrasound 10/09/2024 2:40 PM EDT Narrative 10/09/2024 6:45 PM EDT * [facility]* [address] [place] [address] Stress Echocardiogram Patient: Blair Anderson Room: 8142 Height: 76in MR Number: [id number] : 1985 Weight: 262lb Account: [id number] Gender: M BP: 125 / 77 Study Date: 10/09/2024 Age: 39 BSA: 2.48m^2 Referring physician: Gerri Peterson Interpreting physician: Tonya Henriquez MD FELLOW Lisa Jha MD PERFORMING Tonya Henriquez MD SPINNERET PERSON [employer] ORDERING Gerri Peterson REFERRING Gerri [...] was augmented by the addition of hand towel weaver and leg lifts. The infusion was terminated [...] at baseline or with provocation, shows no vchso-tr-dlqk atrial level shunt. - Pulmonary arteries: Systolic [...] at baseline or with provocation, shows no jgrob-ri-uecf atrial level shunt. Pulmonary artery: - Systolic [...] at baseline or with provocation, shows no efcyn-uz-roap atrial level shunt. Pericardium: - There is [...] peak heart rate and blood pressure was 31184ib Hg/min. Stress testing did not produce any [...] Reviewed and confirmed by Tonya Henriquez MD [id number]:45:20 Procedure Note Tonya Henriquez MD - 10/09/2024 * [facility]* [address] [place] [address] Stress Echocardiogram Patient: Blair Anderson Room: 8142 Height: 76in MR Number: [id number] : 1985 Weight: 262lb Account: [id number] Gender: M BP: 125 / 77 Study Date: 10/09/2024 Age: 39 BSA: 2.48m^2 Referring physician: Gerri Peterson Interpreting physician: Tonya Henriquez MD FELLOW Lisa Jha MD PERFORMING Tonya Henriquez MD SPINNERET PERSON [employer] ORDERING Gerri Peterson REFERRING Gerri Peterson ATTENDING Tequila Newton ADMITTING Gómez Blanchard Procedure:STRESS ECHO - PHARMACOLOGIC Order: Indications: Pre-Operative Clearance (Z01.818). PMH: EtOH Use Disorder. Risk factors: Hypertension. Dyslipidemia. Study data: Height: 76in. 193cm. Weight: 262lb. 118.8kg. The previousstudy was not available, so comparison was made to the report of 07/15/2024. Study status: Routine. Procedure: [facility] was recorded. Intravenous [...] was augmented by the addition of hand towel weaver and leg lifts. The infusion was terminated [...] at baseline or with provocation, shows no ltbja-vs-yydo atrial level shunt. - Pulmonary arteries: Systolic [...] study at baseline or with provocation, showsno pwuhm-ys-hhul atrial level shunt. Pulmonary artery: - Systolic [...] at baseline or with provocation, shows no dnjag-mx-yiwb atrial level shunt. Pericardium: - There is [...] heart rate). The maximal predicted heart rate [id number]. The target heart rate was 152bpm. The target heart rate was achieved.The heart rate response to stress is normal. There is a normal resting blood pressure with an appropriate response to stress. The rate-pressureproduct for the peak heart rate and blood pressure was 04000ix Hg/min. Stress testing did not produce any [...] LAX (N) 3.2 cm 2.5 - 4.0 EZNA/bsa, LAX (L) 1.9 cm/m^2 2.2 - 3.0 [...] Reviewed and confirmed by Tonya Henriquez MD [id number]:20 us Gerri Peterson MD CV ECHO ORDERABLES Final Result * Renal Tx Recipient (10/09/2024 4:59 AM EDT) Pathologist [facility] Renal Transplant Recipient The request and specimen(s) for this test have been received and transported to the [facility] [place] at [address] [place] [address]. The [facility] will report results directly to the client. 10/09/2024 7:26 AM EDT [facility] Blood 10/09/2024 4:59 AM EDT 10/09/2024 7:26 AM EDT us Aaron Gonzalez MD LAB BLOOD ORDERABLES Final Resu lt [facility] [address] * (ABNORMAL) MMR(IgG) Panel (Measles, Mumps, Rubella) (10/08/2024 10:25 AM EDT) Only the most recent of2 resultswithin the time period is included. Pathologist [facility] Mumps IgG Positive 10/08/2024 11:39 AM EDT [facility] MUMPS IGG NUM 99.00(H) 0.0 - 8.9 U/mL 10/08/2024 11:39 AM EDT [facility] Rubella IgG Scr Positive 10/08/2024 11:40 AM EDT [facility] RUB NUM 4.15(H) 0.00 - 0.89 INDEX 10/08/2024 11:40 AM EDT [facility] Rubeola Ab, IgG Positive 10/08/2024 11:39 AM EDT [facility] RUB IGG NUM 273.00(H) 0.00 - 13.40 U/mL 10/08/2024 11:39 AM EDT [facility] Serum 10/08/2024 10:2 5 AM EDT 10/08/2024 10:49 AM EDT Narrative [facility] - 10/08/2024 11:40 AM EDT [...] ORDERABLES Final Resu lt Performing Organization Address City/[facility]/ZIP Co de Phone Number [facility] [address] [facility]. [address] * QuantiFERON TB2 Ag (10/08/2024 10:25 AM EDT) QuantiFERON TB2 Ag Value 0.07 10/10/2024 10:41 AM EDT [facility] Plasma 10/08/2024 10:2 5 AM EDT 10/08/2024 11:05 AM EDT Result [facility] Gerri Peterson MD LAB BLOOD ORDERABLES Final Resu lt Performing Organization Address City/[facility]/ZIP Co de Phone Number [facility] [address] [facility]. [address] * QuantiFERON TB1 Ag (10/08/2024 10:25 AM EDT) QuantiFERON TB1 Ag Value 0.06 10/10/2024 10:41 AM EDT [facility] Plasma 10/08/2024 10:2 5 AM EDT 10/08/2024 11:05 AM EDT Result [facility] Gerri Peterson MD LAB BLOOD ORDERABLES Final Resu lt Performing Organization Address City/[facility]/ZIP Co de Phone Number [facility] [address] [facility]. [address] * QuantiFERON Nil (10/08/2024 10:25 AM EDT) QuantiFERON Nil 0.06 10:41 AM EDT [facility] LAB Plasma 10/08/2024 10:2 5 AM EDT 10/08/2024 11:05 AM EDT Gerri Peterson MD LAB BLOOD ORDERABLES Final Resu lt [facility] [address] * QuantiFERON Mitogen (10/08/2024 10:25 AM EDT) QuantiFERON Interpretation Negative Negative 10/10/2024 10:41 AM EDT [facility] Comment:Negative result geovanny cates M. tuberculosis infection is NOT likely. Negative results do not preclude tuberculosis infection (especially in immunosuppressed patients). Negative results have a TB antigen minus Nil value less than 0.35 IU/mL. In cases with high suspicion of disease, retesting or additional testing with medical evaluation may be useful. QuantiFERON Mitogen 4.87 10/10 10:41 AM EDT [facility] Plasma 10/08/2024 10:2 5 AM EDT 10/08/2024 11:05 AM EDT Narrative [facility] - 10/10/2024 10:41 AM EDT [...] Final Resu lt [facility] [address] [facility] [place] [address], [facility] * (ABNORMAL) Vitamin D 25 Hydroxy (10/08/2024 10:25 AM EDT) Vit D, 25-Hydroxy 7.1(L) 30.0 - 100.0 ng/mL 10/08/2024 11:36 AM EDT [facility] Comment: Vitamin D deficiency has been defined by the [place] [employer] (IOM) and an Endocrine Society [...] Final Resu lt [facility] [address] [facility] [place] [address], [facility] * Reticulocyte Count, Auto (10/08/2024 7:41 AM EDT) Retic Ct Pct 1.35 0.50 - 2.00 % 10/08/2024 9:12 AM EDT [facility] Retic Ct Abs 26,190 25,000 - 90,000 /uL 10/08/2024 9:14 AM EDT [facility] Immature Retic Fract 0.37 0.09 - 0.56 10/08/2024 9:12 AM EDT [facility] Whole Blood 10/08/2024 7:41 AM EDT 10/08/2024 8:51 AM EDT Gómez Blanchard MD LAB BLOOD ORDERABLES Final Res ult Performing Organization Address [facility] Co de Phone Number [facility] [address] [facility]. [address] * (ABNORMAL) Haptoglobin (10/08/2024 7:41 AM EDT) Haptoglobin <30(L) 44 - 215 mg/dL 10/08/2024 8:53 AM EDT [facility] Serum 10/08/2024 7:41 AM EDT 10/08/2024 7:51 AM EDT Kush Posada MD, PhD LAB BLOOD ORDERABLES Final Result Performing Organization Address [facility] Co de Phone Number [facility] [address] [place] [address]. [address] * (ABNORMAL) Lactate dehydrogenase (10/08/2024 5:36 AM EDT) LD 102(L) 110 - 270 U/L 10/08/2024 8:20 AM EDT [facility] Plasma 10/08/2024 5:36 AM EDT 10/08/2024 7:58 AM EDT Gómez Blanchard MD LAB BLOOD ORDERABLES Final Res ult Performing Organization Address [facility] Co de Phone Number [facility] [address] * Enteric Pathogen Panel (10/07/2024 10:50 PM EDT) Only the most recent of2 resultswithin the time period is included. Campylobacter Group (C. ecoli, C. jejuni, C. trino) Not Detected Not Detected 10/08/2024 4:40 AM EDT [facility] Salmonella species Not Detected Not Detected 10/08/2024 4:40 AM EDT [facility] Shigella species Not Detected Not Detected 10/08/2024 4:40 AM EDT [facility] Vibrio Group (Vibrio cholerae, Vibrio parahaemolyticus) Not Detected Not Detected 10/08/2024 4:40 AM EDT [facility] Yersinia enterocolitica Not Detected Not Detected 10/08/2024 4:40 AM EDT [facility] Shiga toxin 1 Not Detected Not Detected 10/08/2024 4:40 AM EDT [facility] Shiga toxin 2 Not Detected Not Detected 10/08/2024 4:40 AM EDT [facility] Norovirus Not Detected Not Detected 10/08/2024 4:40 AM EDT [facility] Rotavirus Not Detected Not Detected 10/08/2024 4:40 AM EDT [facility] Comment: The Enteric Pathogen Panel [...] FLUIDS AND STOOLS ORDERABLE S Final Result [facility] [address] * Urine Drug Confirmation (10/07/2024 10:50 PM EDT) Only the most recent of2 resultswithin the time period is included. BARBITURATES NOT PRESENT 10/09/2024 1:33 PM EDT [facility] BENZODIAZEPINES PRESENT 1:33 PM EDT [facility] Nordiazepam 3 ng/mL 10/09/2024 1:33 PM EDT [facility] Temazepam 6 ng/mL 10/09/2024 1:33 PM EDT [facility] CANNABINOIDS NOT PRESENT 10/09/2024 1:33 PM EDT [facility] DIGITAL MARKETING ASSISTANT STIMULANTS NOT PRESENT 1:33 PM EDT [facility] OPIOID ANALGESICS PRESENT 025 1:33 PM EDT [facility] Oxycodone 300 ng/mL 10/09/2024 1:33 PM EDT [facility] Oxymorphone 32 ng/mL 10/09/2024 1:33 PM EDT [facility] Tramadol >1000 ng/mL 10/09/2024 1:33 PM EDT [facility] OPIOID ANTAGONISTS NOT PRESENT 10/09 1:33 PM EDT [facility] SEDATIVES/MUSCLE RELAXANTS NOT PRESENT 10/09/2024 1:33 PM EDT [facility] TRICYCLIC ANTIDEPRESSANTS NOT PRESENT 10/09/2024 1:33 PM EDT [facility] Urine 10/07/2024 10:5 0 PM EDT 10/08/2024 3:00 AM EDT Gerri Peterson MD URINE ORDERABLES Final Result Performing Organization Address City/[facility] Co de Phone Number [facility] [address] [facility]. [address] * Giardia Cryptosporidium Antigens (10/07/2024 10:50 PM EDT) Cryptosporidium Ag Negative Negative 2024 7:59 AM EDT [facility] Giardia Ag Negative Negative 10/08/2024 7:59 AM EDT [facility] Comment: Detection of Giardia and Cryptosporidium antigen is more sensitive and specific than microscopy. Because antigens are shed continuously, repeat testing is rarely warranted. Feces 10/07/2024 10:5 0 PM EDT 10/08/2024 1:53 AM EDT Comment:F Bisi Hernandez DO MICROBIOLOGY - GENERAL ORDERABLE S Final Result Performing Organization Address City/[facility] Co de Phone Number [facility] [address] * Comprehensive Drug Screen (10/07/2024 10:50 PM EDT) Only the most recent of2 resultswithin the time period is included. Creatinine, Ur CANCELED mg/dL 10/08/2024 7:09 AM EDT [facility] Comment:The released value 8 7.30 was canceled by YAQUELIN on 10/08/2024 07:09 BARBITURATES CANCELED [facility] Butalbital CANCELED [facility] Phenobarbital CANCELED [facility] Secobarbital CANCELED [facility] BENZODIAZEPINES CANCELED [facility] Alprazolam CANCELED [facility] Clonazepam [facility]EL[facility] Diazepam [facility] Alpha-Hydroxyalprazo mcknight [facility]EL[facility] Lorazepam [facility] Midazolam [facility] Nordiazepam [facility]ELED [facility] Oxazepam [facility]EL[facility] Temazepam [facility]EL[facility] CANNABINOIDS CANCELED [facility] THC-COOH CANCELED [facility] DIGITAL MARKETING ASSISTANT STIMULANTS CANCELED [facility] Cocaine Metabolite(benzoylec gonine) [facility]EL[facility] Amphetamine [facility]ED [facility] Methamphetamine [facility]ELED [facility] MDA [facility]EL[facility] MDEA [facility] Phencyclindine (PCP) [facility]EL[facility] OPIOID ANALGESICS [facility]EL[facility] Heroin Metabolite(6-RAMONA) CAN[facility]ELED [facility] Codeine [facility]EL[facility] Morphine [facility] Hydrocodone [facility]ED [facility] Hydromorphone [facility]ELED [facility] Oxycodone [facility] Oxymorphone [facility]ED [facility] Meperidine [facility] Normeperidine [facility]ED [facility] Methadone [facility]EL[facility] Methadone Metabolite (EDDP) [facility]EL[facility] Tramadol [facility] Fentanyl [facility] Norfentanyl [facility]ED [facility] Sufentanil [facility] OPIOID ANTAGONISTS CANCELED [facility] Buprenorphine CANCELED [facility] Norbuprenorphine [facility] Naltrexone [facility] Naloxone [facility] SEDATIVES/MUSCLE RELAXANTS [facility]ED [facility] Carisoprodol [facility] [...] LAB pH CANCELED 10/08/2024 7:09 AM EDT [facility] Comment:The released value 5 .6 was canceled by YAQUELIN on 10/08/2024 07:09 Specific [place] CANCELED 10/09/19 7:09 AM EDT [facility] Comment:The released value 1 .009 was canceled by YAQUELIN on 10/08/2024 07:09 Bleach CANCELED [facility] Pyridinium Chlorochromate CANCELED [facility] Urine 10/07/2024 10:5 0 PM EDT 10/08/2024 2:07 AM EDT Narrative [facility] - 10/08/2024 7:09 AM EDT See accn [id number] Gerri Peterson MD URINE ORDERABLES Edited Result - Final [facility] [address] * (ABNORMAL) Urine Drug Screen Reflex to Confirmation (10/07/2024 10:50 PM EDT) Only the most recent of2 resultswithin the time period is included. Amphetamine, 500 ng/mL Cutoff Negative Negative 10/08/2024 3:00 AM EDT [facility] Barbiturates UR, 300 ng/mL Cutoff Negative Negative 10/08/2024 3:00 AM EDT [facility] Buprenorphine, 5 ng/mL Cutoff Negative Negative 10/08/2024 3:00 AM EDT [facility] Benzodiazepines UR, 300 ng/mL Cutoff Negative Negative 10/08/2024 3:00 AM EDT [facility] Cocaine UR, 300 ng/mL Cutoff Negative Negative 10/08/2024 3:00 AM EDT [facility] Methadone, UR, 300 ng/mL Cutoff Negative Negative 10/08/2024 3:00 AM EDT [facility] Opiates UR, 300 ng/mL Cutoff Negative Negative 10/08/2024 3:00 AM EDT [facility] Oxycodone, 100 ng/mL Cutoff Presumptive Positive(A) Negative 10/08/2024 3:00 AM EDT [facility] Tricyclic Antidepressants, 300 ng/mL Cutoff Negative Negative 10/08/2024 3:00 AM EDT [facility] Comment:This test has been d eveloped and its performance characteristics determined by [facility] which is certified under [...] Cutoff Negative Negative 10/08/2024 3:00 AM EDT [facility] Comment:This is a screening method only and may be associated with false positive and/or false negative results. Results are not definitive without additional confirmatory testing by mass spectrometry. Fentanyl, 2 ng/mL Cutoff Negative Negative 10/08/2024 3:00 AM EDT [facility] Comment:This test has been d eveloped and its performance characteristics determined by [facility] which is certified under [...] PM EDT 10/08/2024 2:08 AM EDT Narrative [facility] - 10/08/2024 3:00 AM EDT CONFIRMATION TO FOLLOW Gerri Peterson MD URINE ORDERABLES Final Result [facility] [address] * Ova and Parasite Comprehensive w/ Giardia/Crypto (10/07/2024 10:50 PM EDT) O & P Method: Concentration and Trichrome Stain [facility] Results No Amoeba, Ova, Or Parasites Seen. -- O and P examination of additional specimens is recommended only for symptomatic patients, immunosuppressed patients or those with an appropriate travel history. [facility] Feces FECES / Unknown 10/07/2024 1 0:50 PM EDT 10/08/2024 1:53 AM EDT Comment:F Bisi Hernandez DO MICROBIOLOGY - GENERAL ORDERABLE S Final Result Performing Organization Address City/[facility]/ZIP Co de Phone Number [facility] [address] [facility] * Hepatitis A IgM (10/07/2024 6:38 PM EDT) Only the most recent of3 resultswithin the time period is included. Pathologist [facility] Hep A IgM Nonreactive Nonreactive 10/07/2024 7:46 PM EDT [facility] Serum 10/07/2024 6:38 PM EDT 10/07/2024 6:52 PM EDT Narrative [facility] - 10/07/2024 7:46 PM EDT IgM anti-HAV not detected. Does not exclude the possibility of exposure to or infection with HAV. Levels of IgM anti-HAV may be below the cut-off in early infection. Gerri Peterson MD LAB BLOOD ORDERABLES Final Resu lt [facility] [address] [place] [facility]. [address] * Syphilis Screening (Trepia) (10/07/2024 6:37 PM EDT) Pathologist [facility] Treponema Pallidum Negative Negative 10/07/2024 8:27 PM EDT [facility] Comment: No serological evidence of infection with Treponema pallidum (incubating or early primary syphilis cannot be excluded). Serum 10/07/2024 6:37 PM EDT 10/07/2024 6:50 PM EDT Gerri Peterson MD LAB BLOOD ORDERABLES Final Resu lt [facility] [address] [place] [address], [facility] * Phosphatidylethanol Confirmation, B (10/07/2024 6:37 PM EDT) Only the most recent of6 resultswithin the time period is included. PETH 16:0/18.1 (POPETH) <10 Cutoff: 10 ng/mL 10/10/2024 10:42 AM EDT [facility] Comment: Phosphatidylethanol (PEth) homologues result [...] Cutoff: 10 ng/mL 10/10/2024 10:42 AM EDT [facility] Comment: PEth 16:0/18:2 (PLPEth) Reference ranges are not well established PEth Interpretation Negative. 10/10 10:42 AM EDT [facility] Comment: ADDITIONAL INFORMATION This report is intended for use in clinical monitoring and management of patients. It is not intended for use in employment-related testing. This test was developed and its performance characteristics determined by [facility] in a manner consistent with CLIA requirements. This test has not been cleared or approved by the U.S. Food and Drug Administration. Test Performed by: [facility] [address] [place] [address] Shop Hand: Kathy Ortiz Ph.D.; CLIA# [id number] Whole Blood 10/07/2024 6:37 PM EDT 10/10/2024 10:42 AM EDT Gerri Peterson MD LAB BLOOD ORDERABLES Final Resu lt Performing Organization Address [facility] Co de Phone Number [facility] [address] [place] [address]. [address] * (ABNORMAL) CMV IgG Antibody (10/07/2024 6:37 PM EDT) CMV IgG Positive(A ) Negative 10/07/2024 8:26 PM EDT [facility] CMV IGG NUM 8.40(H) 0.00 - 0.59 U/mL 10/07/2024 8:26 PM EDT [facility] Serum 10/07/2024 6:37 PM EDT 10/07/2024 6:50 PM EDT Gerri Peterson MD LAB BLOOD ORDERABLES Final Resu Performing Organization Address [facility] de Phone Number [facility] [address] [place] [address] * (ABNORMAL) Alpha 1 Antitrypsin AAT Quant & Mutation (10/07/2024 6:37 PM EDT) A-1 Antitrypsin 99(L) 101 - 187 mg/dL 10/09/2024 4:28 AM EDT [facility] A-1 Antitrypsin Pheno Comment 10/10/2024 4:05 PM EDT [facility] Comment: A1A Phenotype is consistent with a heterozygous phenotype consisting of one M (normal) allele and one allele that cannot be identified at this time. The unknown allele is not consistent with Z (deficient), S (deficient), or F (deficient). MM Phenotype is considered to be normal , producing normal serum levels of tskjo-[id number]-higvxulg inhibitor and not associated with clinical disease. [...] 6:37 PM EDT 10/10/2024 4:08 PM EDT [facility] - 10/10/2024 4:08 PM EDT PERFORMED AT: [facility] [id number] HEADING MAKER: Bassam Khalil, PhD PHONE: [phone] PERFORMED AT: [facility] [id number] HEADING MAKER: Mandy Abdul MD PHONE: [phone] us Gerri Peterson MD LAB BLOOD ORDERABLES Final Resu lt Performing Organization Address City/State/[facility] Co de Phone Number [facility] [address] * Strongyloides Ab (10/07/2024 6:37 PM EDT) Strongyloides Ab Negative Negative 10/11/19 11:51 AM EDT [facility] Serum 10/07/2024 6:37 PM EDT 10/10/2024 12:07 PM EDT [facility] - 10/10/2024 12:07 PM EDT PERFORMED AT: [facility] [address] [id number] HEADING MAKER: Mandy Abdul MD PHONE: [phone] Gerri Peterson MD LAB BLOOD ORDERABLES Final Resu lt [facility] [address] * Ethanol, Serum (10/07/2024 6:37 PM EDT) Only the most recent of3 resultswithin the time period is included. Ethanol <10 0 - 10 mg/dL 10/07/2024 8:36 PM EDT [facility] Serum 10/07/2024 6:37 PM EDT 10/07/2024 6:50 PM EDT Gerri Peterson MD LAB BLOOD ORDERABLES Final Resu lt Performing Organization Address [facility] Co de Phone Number [facility] [address] [facility] * Katie-Watkins virus early antigen antibody, IgG (10/07/2024 6:37 PM EDT) Pathologist [facility] EBV Early Antigen Ab, IgG <9.0 0.0 - 8.9 U/mL 10/09/2024 2:16 PM EDT [facility] Comment: Negative < 9.0 Equivocal 9.0 - 10.9 Positive >10.9 Serum Frozen 10/07/2024 6:37 PM EDT 10/09/2024 3:07 PM EDT [facility] - 10/09/2024 3:07 PM EDT PERFORMED AT: [facility] [address] [id number] HEADING MAKER: Bassam Khalil, PhD PHONE: [phone] Gerri Peterson MD LAB BLOOD ORDERABLES Final Resu lt Performing Organization Address City/[facility]/ZIP Co de Phone Number [facility] [address] [place] [address] * (ABNORMAL) Varicella zoster antibody, IgG (10/07/2024 6:37 PM EDT) Pathologist [facility] Varicella IgG Positive( A) Negative S/CO 10/07/2024 8:34 PM EDT [facility] Comment:Result indicates the presence of detectable VZV IgG antibodies. A positive result is generally indicative of exposure to the pathogen or administration of specific immunoglobulins, but it is no indication of active infection or stage of disease. This test is not approved for determining vaccine-induced immunity to varicella zoster virus. VZV NUM 6.76(H) 0.00 - 0.99 S/CO 10/07/2024 8:34 PM EDT [facility] Serum 10/07/2024 6:37 PM EDT 10/07/2024 6:50 PM EDT Gerri Peterson MD LAB BLOOD ORDERABLES Final Resu lt Performing Organization Address [facility] Co de Phone Number [facility] [address] [facility] * TSH (Thyroid Stimulating Hormone) (10/07/2024 6:37 PM EDT) Only the most recent of2 resultswithin the time period is included. Pathologist [facility] TSH 0.81 0.45 - 4.12 uIU/mL 10/07/2024 8:17 PM EDT [facility] Serum 10/07/2024 6:37 PM EDT 10/07/2024 6:50 PM EDT Gerri Peterson MD LAB BLOOD ORDERABLES Final Resu lt Performing Organization Address [facility] Co de Phone Number [facility] [address] * IgA (10/07/2024 6:37 PM EDT) Pathologist [facility] IgA 227.0 70.0 - 400.0 mg/dL 10/08/2024 11:07 AM EDT [facility] Comment:Please interpret the se findings in conjunction with clinical findings, protein electrophoresis, and immunotyping/immunofixation results. Serum 10/07/2024 6:37 PM EDT 10/07/2024 6:50 PM EDT Gerri Peterson MD LAB BLOOD ORDERABLES Final Resu lt [facility] [address] [place] [id number], [facility] * (ABNORMAL) Lipid Profile (10/07/2024 6:37 PM EDT) Non-HDL Cholesterol, Calculated See Note 0 - 129 mg/dL 10/07/2024 7:42 PM EDT [facility] Comment: Desirable: < 130 mg/dL Above Desirable: 130-159 mg/dL Borderline High: 160-189 mg/dL High: 190-219 mg/dL Very High: > 219 mg/dL Unable to calculate result either because contributing result(s) are outside of reportable range or are not available. Cholesterol, Total <25 0 - 200 mg/dL 10/07/2024 7:42 PM EDT [facility] Triglycerides 30 10 - 149 mg/dL 10/07/2024 7:42 PM EDT [facility] HDL 4(L) 60 - 92 mg/dL 10/07/2024 7:42 PM EDT [facility] Comment: LIPID PROFILE INTERPRETATION CHOLESTEROL,TOTAL(mg/dL) [...] Cholesterol See Note mg/dL 7:42 PM EDT [facility] Comment:Unable to calculate result either because contributing result(s) are outside of reportable range or are not available. Plasma 10/07/2024 6:37 PM EDT 10/07/2024 7:06 PM EDT [facility] - 10/07/2024 7:42 PM EDT LDL cholesterol calculated using the Friedewald equation. Gerri Peterson MD LAB BLOOD ORDERABLES Final Resu lt [facility] [address] [facility] [place] [address], [facility] * X-ray Mandible minimum 4-views [...] EXAM: US ABDOMEN COMPLETE EXAM: US DUPLEX [id number] COMPLETE INDICATION: elevated bilirubin COMPARISON: Ultrasound and [...] EXAM: US ABDOMEN COMPLETE EXAM: US DUPLEX [id number] COMPLETE INDICATION: elevated bilirubin COMPARISON: Ultrasound and [...] at 10/07/2024 4:26 PM EDT us Bisi MARLOW US ORDERABLES Final Result * AFP Tumor Marker (10/07/2024 6:00 AM EDT) Only the most recent of3 resultswithin the time period is included. [facility] AFP-Tumor Marker 2.0 0.0 - 9.0 ng/mL 10/07/2024 7:11 AM EDT [facility] Serum 10/07/2024 6:00 AM EDT 10/07/2024 6:39 AM EDT Narrative [facility] - 10/07/2024 7:11 AM EDT The testing method for AFP is a chemiluminescent immunoassay manufactured by [employer] Concentrations of AFP obtained by different assay methods or kits may vary and cannot be used interchangeably. AFP results cannot be interpreted as absolute evidence of the presence or absence of malignant disease. Ni Rivera MD LAB BLOOD ORDERABLES Final Resul t Performing Organization Address [facility] Co de Phone Number [facility] [address] [facility]. [address] * Osmolality (10/06/2024 2:50 PM EDT) [facility] Osmolality, Measured 304 278 - 305 mOsm/kg 10/06/2024 3:49 PM EDT [facility] Serum 10/06/2024 2:50 PM EDT 10/06/2024 2:56 PM EDT Jani Vangeas MD LAB BLOOD ORDERABLES Final Resul t Performing Organization Address [facility] Co de Phone Number [facility] [address] [facility] * CT Head WO contrast (10/06/2024 [...] Abrams MD at 10/06/2024 4:50 PM EDT us Kush Posada MD, PhD IMG CT ORDERABLES Fin al Result * Sodium, urine, random (10/06/2024 1:25 PM EDT) Only the most recent of4 resultswithin the time period is included. Sodium, Ur <10 mmol/L 10/06/2024 1:56 PM EDT [facility] Comment:Reference range not established for this test. Urine 10/06/2024 1:25 PM EDT 10/06/2024 1:32 PM EDT us Jani Vanegas MD URINE ORDERABLES Final Result Performing Organization Address [facility] de Phone Number [facility] [address] [place] [address] * Potassium, urine, random (10/06/2024 1:25 PM EDT) Only the most recent of3 resultswithin the time period is included. Potassium Urine Random 50.0 mmol/L 10/06/2024 1:56 PM EDT [facility] Comment:Reference range not established for this test. Urine 10/06/2024 1:25 PM EDT 10/06/2024 1:32 PM EDT us Jani Vanegas MD URINE ORDERABLES Final Result Performing Organization Address [facility] de Phone Number [facility] [address] [place] [address]. [address] * Osmolality, Urine (10/06/2024 1:25 PM EDT) Osmolality, Ur 386 50 - 1,200 mOsm/kg 10/06/2024 1:55 PM EDT [facility] Urine 10/06/2024 1:25 PM EDT 10/06/2024 1:32 PM EDT us Jani Vanegas MD URINE ORDERABLES Final Result Performing Organization Address [facility] de Phone Number [facility] [address] [facility] * Creatinine, Urine, Random (10/06/2024 1:25 PM EDT) Only the most recent of3 resultswithin the time period is included. Creatinine, Urine 87.40 mg/dL 10/06/2024 1:56 PM EDT [facility] Comment:Reference range not established for this test. Urine 10/06/2024 1:25 PM EDT 10/06/2024 1:32 PM EDT us Jani Vanegas MD URINE ORDERABLES Final Result Performing Organization Address City/[facility]/ZIP Co de Phone Number [facility] [address] * Chloride, urine, random (10/06/2024 1:25 PM EDT) Only the most recent of3 resultswithin the time period is included. Chloride, Ur <15 mmol/L 10/06/2024 1:56 PM EDT [facility] Comment:Reference range not established for this test. Urine 10/06/2024 1:25 PM EDT 10/06/2024 1:32 PM EDT us Jani Vanegas MD URINE ORDERABLES Final Result Performing Organization Address [facility] de Phone Number [facility] [address] * (ABNORMAL) Comprehensive Metabolic Panel (10/06/2024 7:37 AM EDT) Only the most recent of5 resultswithin the time period is included. Sodium 129(L) 133 - 146 mmol/L 10/06/2024 8:16 AM EDT [facility] Potassium 4.4 3.5 - 5.3 mmol/L 10/06/2024 8:16 AM EDT [facility] Chloride 100 98 - 110 mmol/L 10/06/2024 8:16 AM EDT [facility] CO2 18(L) 21 - 33 mmol/L 10/06/2024 8:16 AM EDT [facility] Anion Gap 11 3 - 16 mmol/L 10/06/2024 8:16 AM EDT [facility] BUN 62(H) 7 - 25 mg/dL 10/06/2024 8:16 AM EDT [facility] Creatinine 3.40(H) 0.60 - 1.30 mg/dL 10/06/2024 8:16 AM EDT [facility] Glucose 98 70 - 100 mg/dL 10/06/2024 8:16 AM EDT [facility] Calcium 9.5 8.6 - 10.3 mg/dL 10/06/2024 8:16 AM EDT [facility] Total Bilirubin 14.3(H) 0.0 - 1.5 mg/dL 10/06/2024 8:16 AM EDT [facility] AST 57(H) 13 - 39 U/L 10/06/2024 8:16 AM EDT [facility] ALT 29 7 - 52 U/L 10/06/2024 8:16 AM EDT [facility] Alkaline Phosphatase 158(H) 36 - 125 U/L 10/06/2024 8:16 AM EDT [facility] Total Protein 5.6(L) 6.4 - 8.9 g/dL 10/06/2024 8:16 AM EDT [facility] Albumin 3.6 3.5 - 5.7 g/dL 10/06/2024 8:16 AM EDT [facility] Osmolality, Calculated 286 278 - 305 mOsm/kg 10/06/2024 8:16 AM EDT [facility] EGFR 22 10/06/2024 8:16 AM EDT [facility] Comment:As of [...] Resul t [facility] [address] * (ABNORMAL) Salicylate Level (10/06/2024 4:01 AM EDT) Pathologist [facility] Salicylate Lvl <3(L) 10 - 30 mg/dL 10/06/2024 4:58 AM EDT [facility] Serum 10/06/2024 4:01 AM EDT 10/06/2024 4:22 AM EDT us Bsii Hernandez DO LAB BLOOD ORDERABLES Final Resul t [facility] [address]. [address] * Upper Respiratory Viral/Bacterial Panel-HYDRANT SETTER Only (10/06/2024 3:12 AM EDT) [facility] Adenovirus Not Detected Not Detected 10/06/2024 11:38 PM EDT [facility] Coronavirus (229E,HKU1,NL63,OC 43) Not Detected Not Detected 10/06/2024 11:38 PM EDT [facility] SARS-CoV-2 Not Detected Not Detected 10/06/2024 11:38 PM EDT [facility] Human Metapneumovirus Not Detected Not Detected 10/06/2024 11:38 PM EDT [facility] Human Rhinovirus/Enterov irus Not Detected Not Detected 10/06/2024 11:38 PM EDT [facility] Influenza A Not Detected Not Detected 10/06/2024 11:38 PM EDT [facility] Influenza A H1 Not Detected Not Detected 10/06/2024 11:38 PM EDT [facility] Influenza A/H1-2009 Not Detected Not Detected 10/06/2024 11:38 PM EDT [facility] Influenza A H3 Not Detected Not Detected 10/06/2024 11:38 PM EDT [facility] Influenza B Not Detected Not Detected 10/06/2024 11:38 PM EDT [facility] Parainfluenza 1 Not Detected Not Detected 10/06/2024 11:38 PM EDT [facility] Parainfluenza 2 Not Detected Not Detected 10/06/2024 11:38 PM EDT [facility] Parainfluenza 3 Not Detected Not Detected 10/06/2024 11:38 PM EDT [facility] Parainfluenza 4 Not Detected Not Detected 10/06/2024 11:38 PM EDT [facility] Resp. Syncycial Virus A Not Detected Not Detected 10/06/2024 11:38 PM EDT [facility] Resp. Syncycial Virus B Not Detected Not Detected 10/06/2024 11:38 PM EDT [facility] Chlamydia pneumoniae Not Detected Not Detected 10/06/2024 11:38 PM EDT [facility] Mycoplasma pneumoniae Not Detected Not Detected 10/06/2024 11:38 PM EDT [facility] Comment: The Respiratory Viral-Bacterial Panel [...] Test results have been sent to the [facility] in accordance with state requirements. For a fact sheet for healthcare providers, see https://www.fda.gov/media/479159/download. For a fact sheet for patients, see https://www.fda.gov/media/666103/download. Nasopharyngeal Swab NASOPHARYNGEAL SWAB / Unknown 10/06/2024 3:12 AM EDT 10/06/2024 5:41 PM EDT Comment:HYDRANT SETTER Bisi Hernandez DO BODY FLUIDS AND STOOLS ORDERABLE S Final Result Performing Organization Address City/[facility]/ZIP Co de Phone Number [facility] [address] [facility]. [address] * Thyroid Function [place] (10/06/2024 1:04 AM EDT) TSH 0.84 0.45 - 4.12 uIU/mL 10/06/2024 2:20 AM EDT [facility] Serum 10/06/2024 1:04 AM EDT 10/06/2024 1:39 AM EDT Bisi Hernandez DO LAB BLOOD ORDERABLES Final Resul t Performing Organization Address [facility]/ZIP Co de Phone Number [facility] [address]Hake[address] Salas [facility]. [address] * #2 Blood culture-Peripheral site 2 (10/06/2024 1:04 AM EDT) Only the most recent of6 resultswithin the time period is included. Culture Result No Growth After 5 Days [facility] Blood BLOOD SPECIMEN / Unknown 10/06/2024 1:04 AM EDT 10/06/2024 4:57 AM EDT Narrative [facility] - 10/11/2024 5:05 AM EDT Suboptimal volume of blood received. Interpret results with caution. Bisi Hernandez DO MICROBIOLOGY - GENERAL ORDERABLE S Final Result Performing Organization Address City/[facility]/ZIP Co de Phone Number [facility] [address] Salas [facility]. [address] * (ABNORMAL) Acetaminophen Level (10/06/2024 1:04 AM EDT) Acetaminophen Level <10(L) 10 - 30 ug/mL 10/06/2024 2:08 AM EDT [facility] Serum 10/06/2024 1:04 AM EDT 10/06/2024 1:30 AM EDT Bisi Hernandez DO LAB BLOOD ORDERABLES Final Resul t [facility] [address] [place] [address], [facility] * Renal Function Panel, Fasting (09/16/2024 12:20 PM EDT) EGFR 31 Anion Gap 14.3 <=30 mmol/L Plasma Result [facility] Gerri Peterson MD LAB BLOOD ORDERABLES Final Resu lt * CBC and differential (09/16/2024 12:20 PM EDT) Neutrophils Absolute 8.4 / L Blood Result [facility] Gerri Peterson MD LAB BLOOD ORDERABLES Final Resu lt * Glucose, random (09/16/2024 12:20 PM EDT) Glucose 97 60 - 200 mg/dL Plasma Result [facility] Gerri Peterson MD LAB BLOOD ORDERABLES Final Resu lt * (ABNORMAL) Hepatic function panel (09/16/2024 12:20 PM EDT) Alkaline Phosphatase 144 U/L ALT 40 U/L AST 76 U/L Total Bilirubin 19.8(A) 0.1 - 1.4 mg/dL Protein, Total 6.3 Albumin 3.4(A) 3.5 - 5.0 g/dL Blood Result [facility] Gerri Peterson MD LAB BLOOD ORDERABLES Final Resu lt * PARACENTESIS (09/09/2024 2:19 PM EDT) Narrative [...] Positive( A) Negative 09/09/2024 1:20 PM EDT [facility] Comment:Positive indicates t oxigenic C. difficile [...] FLUIDS AND STOOLS ORDERA BLES Final Result [facility] [address] [place] [address], [facility] * Clostridium Difficile Toxin A/B Antigen (09/09/2024 4:58 AM EDT) CDIFF Tox AGN Negative Negative 09/09/2024 1:57 PM EDT [facility] Comment:C. difficile nucleic acid testing is [...] ORDERA BLES Final Result Performing Organization Address [facility] Co de Phone Number [facility] [address] [facility]. [address] * Phosphorus, AM (09/05/2024 7:24 AM EDT) Only the most recent of5 resultswithin the time period is included. Phosphorus 2.1 2.1 - 4.7 mg/dL 09/05/2024 8:25 AM EDT [facility] Plasma 09/05/2024 7:24 AM EDT 09/05/2024 7:38 AM EDT Kiet Ramirez MD LAB BLOOD ORDERABLES Denisse l Result Performing Organization Address [facility] de Phone Number [facility] [address] * (ABNORMAL) Basic Metabolic panel, AM (09/05/2024 7:24 AM EDT) Only the most recent of11 resultswithin the time period is included. Sodium 134 133 - 146 mmol/L 09/05/2024 8:25 AM EDT [facility] Potassium 3.6 3.5 - 5.3 mmol/L 09/05/2024 8:25 AM EDT [facility] Chloride 107 98 - 110 mmol/L 09/05/2024 8:25 AM EDT [facility] CO2 19(L) 21 - 33 mmol/L 09/05/2024 8:25 AM EDT [facility] Anion Gap 8 3 - 16 mmol/L 09/05/2024 8:25 AM EDT [facility] BUN 42(H) 7 - 25 mg/dL 09/05/2024 8:25 AM EDT [facility] Creatinine 2.92(H) 0.60 - 1.30 mg/dL 09/05/2024 8:25 AM EDT [facility] Glucose 108(H) 70 - 100 mg/dL 09/05/2024 8:25 AM EDT [facility] Calcium 8.6 8.6 - 10.3 mg/dL 09/05/2024 8:25 AM EDT [facility] Osmolality, Calculated 289 278 - 305 mOsm/kg 09/05/2024 8:25 AM EDT [facility] EGFR 27 09/05/2024 8:25 AM EDT [facility] Comment:As of [...] MD LAB BLOOD ORDERABLES Denisse valle Result [facility] [address] [facility] [place] [address], [facility] * Fluid Creatinine (09/04/2024 11:01 AM EDT) Creat, Fluid 3.17 mg/dL 09/04/2024 6:15 PM EDT [facility] Comment:Reference range not established for this test. Abdominal Fluid ABDOMEN / Unknown 025 11:01 AM EDT 09/04/2024 5:25 PM EDT Narrative [facility] - 09/04/2024 6:15 PM EDT This assay has been modified from the private equity associate's specifications and has been validated with performance characteristics determined by [facility] in accordance with federal regulations under [...] Result Performing Organization Address [facility] de Phone Number [facility] [address] [place] [address]. [address] * Protein, Body fluid (09/04/2024 11:01 AM EDT) Only the most recent of3 resultswithin the time period is included. Protein, Fluid <3.0 g/dL 09/04/2024 6:15 PM EDT [facility] Comment:Reference range not established for this test. Ascitic Fluid ABDOMEN / Unknown 5 11:01 AM EDT 09/04/2024 5:25 PM EDT Narrative [facility] - 09/04/2024 6:15 PM EDT This assay has been modified from the private equity associate's specifications and has been validated with performance characteristics determined by [facility] in accordance with federal regulations under [...] Result Performing Organization Address [facility] Co de Phone Number [facility] [address] * Albumin, fluid (09/04/2024 11:01 AM EDT) Only the most recent of3 resultswithin the time period is included. Albumin, Fluid <1.5 g/dL 09/04/2024 6:15 PM EDT [facility] Comment:Reference range not established for this test. Abdominal Fluid ABDOMEN / Unknown 025 11:01 AM EDT 09/04/2024 5:25 PM EDT Narrative [facility] - 09/04/2024 6:15 PM EDT This assay has been modified from the private equity associate's specifications and has been validated with performance characteristics determined by [facility] in accordance with federal regulations under the Clinical Laboratory Act Amendment of 1988. The modification has not been approved by the FDA which has determined that such approval is not necessary. The test is for clinical purposes and should not be regarded as investigational or for research use. Kiet Ramirez MD BODY FLUIDS AND STOOLS OR DERABLES Final Result Performing Organization Address City/[facility]/ZIP Co de Phone Number [facility] [address] [place] [address] * Lipase (09/04/2024 5:22 AM EDT) Only the most recent of3 resultswithin the time period is included. Pathologist [facility] Lipase 40 4 - 82 U/L 09/04/2024 11:41 AM EDT [facility] Plasma 09/04/2024 5:22 AM EDT 09/04/2024 11:23 AM EDT Kiet Ramirez MD LAB BLOOD ORDERABLES Denisse l Result [facility] [address] * MRSA/Staph aureus DNA ??? Diagnostic testing for pneumonia (09/03/2024 3:21 PM EDT) Pathologist [facility] MRSA, PCR Negative Negative 09/03/2024 7:48 PM EDT [facility] Staph Aureus, PCR Negative Negative 09/03/2024 7:48 PM EDT [facility] Comment:Test method is a FDA approved amplified DNA assay. Nares Swab BOTH ANTERIOR NARES / Unknown 09/03/2024 3:21 PM EDT 09/03/2024 4:25 PM EDT Narrative [facility] - 09/03/2024 7:48 PM EDT Diagnosis of MRSA Pneumonia->Yes - Place [id number] (this order) Kiet Ramirez MD MICROBIOLOGY - GENERAL OR DERABLES Final Result [facility] [address] [facility] [place] [address], [facility] * (ABNORMAL) Urine Drug Screen without Confirmation, STAT (09/03/2024 3:21 PM EDT) Amphetamine, 500 ng/mL Cutoff Negative Negative 09/03/2024 4:17 PM EDT [facility] Barbiturates UR, 300 ng/mL Cutoff Negative Negative 09/03/2024 4:17 PM EDT [facility] Buprenorphine, 5 ng/mL Cutoff Negative Negative 09/03/2024 4:17 PM EDT [facility] Benzodiazepines UR, 300 ng/mL Cutoff Negative Negative 09/03/2024 4:17 PM EDT [facility] Cocaine UR, 300 ng/mL Cutoff Negative Negative 09/03/2024 4:17 PM EDT [facility] Methadone, UR, 300 ng/mL Cutoff Negative Negative 09/03/2024 4:17 PM EDT [facility] Opiates UR, 300 ng/mL Cutoff Presumptive Positive(A) Negative 09/03/2024 4:17 PM EDT [facility] Oxycodone, 100 ng/mL Cutoff Negative Negative 09/03/2024 4:17 PM EDT [facility] Tricyclic Antidepressants, 300 ng/mL Cutoff Negative Negative 09/03/2024 4:17 PM EDT [facility] Comment:This test has been d eveloped and its performance characteristics determined by [facility] which is certified under [...] Cutoff Negative Negative 09/03/2024 4:17 PM EDT [facility] Comment:This is a screening method only and may be associated with false positive and/or false negative results. Results are not definitive without additional confirmatory testing by mass spectrometry. Fentanyl, 2 ng/mL Cutoff Negative Negative 09/03/2024 4:17 PM EDT [facility] Comment:This test has been d eveloped and its performance characteristics determined by [facility] which is certified under [...] ORDERABLES Final Re sult Performing Organization Address [facility] Co de Phone Number [facility] [address] * Urea Nitrogen, Urine (09/03/2024 3:21 PM EDT) Only the most recent of2 resultswithin the time period is included. Urea Nitrogen, Ur 350 mg/dL 09/03/2024 4:12 PM EDT [facility] Comment:Reference range not established for this test. Urine 09/03/2024 3:21 PM EDT 09/03/2024 3:30 PM EDT Kiet Ramirez MD URINE ORDERABLES Final Re sult Performing Organization Address [facility] Co de Phone Number [facility] [address] * Hepatitis B Core IgM (09/03/2024 1:43 PM EDT) Hep B Core IgM Nonreactive Nonreactive 09/03/2024 3:50 PM EDT [facility] Serum 09/03/2024 1:43 PM EDT 09/03/2024 2:17 PM EDT Narrative [facility] - 09/03/2024 3:50 PM EDT [...] ORDERABLES Denisse l Result Performing Organization Address [facility] Co de Phone Number [facility] [address] [facility]. [address] * T4, Free (09/03/2024 1:43 PM EDT) Free T4 0.74 0.61 - 1.76 ng/dL 09/03/2024 6:34 PM EDT [facility] Comment:Biotin megadosing (c onsumption >300 mcg/day) may falsely elevate free T4. When indicated, discontinue megadosing for 1 week and repeat testing. Serum 09/03/2024 1:43 PM EDT 09/03/2024 2:17 PM EDT Kiet Ramirez MD LAB BLOOD ORDERABLES Denisse l Result Performing Organization Address [facility] Co de Phone Number [facility] [address] [facility]. [address] * (ABNORMAL) Urinalysis, Microscopic (09/03/2024 10:28 AM EDT) Only the most recent of2 resultswithin the time period is included. RBC, UA 1 0 - 3 /HPF 09/03/2024 11:51 AM EDT [facility] WBC, UA 1 0 - 5 /HPF 09/03/2024 11:51 AM EDT [facility] Squam Epithel, UA <1 0 - 5 /HPF 09/03/2024 11:51 AM EDT [facility] Bacteria, UA Occasional (A) None Seen /HPF 09/03/2024 11:51 AM EDT [facility] Mucus, UA Present(A) None Seen /HPF 09/03/2024 11:51 AM EDT [facility] Urine 09/03/2024 10:2 8 AM EDT 09/03/2024 11:24 AM EDT us Kiet Ramirez MD URINE ORDERABLES Final Re sult [facility] [address] [id number], [facility] * (ABNORMAL) Urinalysis-Macroscopic w/Rfx to Microsco (09/03/2024 10:28 AM EDT) Only the most recent of2 resultswithin the time period is included. Color, UA Yellow Yellow,Straw 09/03/2024 11:51 AM EDT [facility] Clarity, UA Cloudy(A) Clear 09/03/2024 11:51 AM EDT [facility] Specific [place], UA >1.035(H) 1.005 - 1.035 09/03/2024 11:51 AM EDT [facility] pH, UA 6.5 5.0 - 8.0 09/03/2024 11:51 AM EDT [facility] Protein, UA Trace(A) Negative mg/dL 09/03/2024 11:51 AM EDT [facility] Glucose, UA Negative Negative mg/dL 09/03/2024 11:51 AM EDT [facility] Ketones, UA Negative Negative mg/dL 09/03/2024 11:51 AM EDT [facility] Bilirubin, UA Small(A) Negative 09/03/2024 11:51 AM EDT [facility] Blood, UA Negative Negative 09/03/2024 11:51 AM EDT [facility] Nitrite, UA Negative Negative 09/03/2024 11:51 AM EDT [facility] Urobilinogen, UA <2.0 0.2 - 1.9 mg/dL 09/03/2024 11:51 AM EDT [facility] Leukocyte Esterase, UA Negative Negative 09/03/2024 11:51 AM EDT [facility] Urine 09/03/2024 10:2 8 AM EDT 09/03/2024 10:55 AM EDT us Kiet Ramirez MD URINE ORDERABLES Final Re sult [facility] [address] [facility]. [address] * Lactic acid, venous (09/03/2024 7:55 AM EDT) Only the most recent of3 resultswithin the time period is included. Lactate, Shakeel 1.8 0.5 - 2.2 mmol/L 09/03/2024 8:02 AM EDT [facility] Whole Blood VENOUS STRUCTURE / Unknown 09/03/2024 7:55 AM EDT 09/03/2024 7:59 AM EDT us Jarrod Alas MD LAB BLOOD ORDERABLES Final Res ult Performing Organization Address City/[facility]/ZIP Co de Phone Number [facility] [address] [facility]. [address] * High Sensitivity Troponin (60min) (09/03/2024 7:18 AM EDT) Only the most recent of2 resultswithin the time period is included. High Sensitivity Troponin 14 0 - 20 ng/L 09/03/2024 7:49 AM EDT [facility] Serum 09/03/2024 7:18 AM EDT 09/03/2024 7:18 AM EDT Narrative [facility] - 09/03/2024 7:49 AM EDT Please draw 60min after time that first troponin is drawn. us Rommel Garland MD LAB BLOOD ORDERABLES Final Resul t [facility] [address] [facility]. [address] * Paracentesis (09/03/2024 7:01 AM EDT) [...] infection and pain Alternatives discussed: No treatment [place] protocol: Procedure explained and questions answered to [...] QT: 456 ms QTc: 557 ms P [place]: 76 degrees R [place]: -37 degrees T [place]: 16 degrees Diagnosis Line: INTERPRETATION NOT AVAILABLE--ECG READ IN ER ^ Reconfirmed by PHYSICIAN, ER ([id number]), editor news Tonya BUTLER ([id number]) on 09/03/2024 8:00:24 AM [...] at 08/14/2024 2:17 PM EDT Mak Armenta [facility] IMG DIAGNOSTIC IMAGING O RDERABLES Final [...] and bowel perforation Alternatives discussed: No treatment [place] protocol: Procedure explained and questions answered to [...] Fluid 18 mg/dL 08/14/2024 1:58 PM EDT [facility] Comment:Reference range not established for this test. Fluid ABDOMEN / Unknown 08/14/2024 12:31 PM EDT 08/14/2024 1:31 PM EDT [facility] - 08/14/2024 1:58 PM EDT This assay has been modified from the private equity associate's specifications and has been validated with performance characteristics determined by [facility] in accordance with federal regulations under the Clinical Laboratory Act Amendment of 1988. The modification has not been approved by the FDA which has determined that such approval is not necessary. The test is for clinical purposes and should not be regarded as investigational or for research use. Dex Jackman MD BODY FLUIDS AND STOOLS ORDERABL ES Final Result [facility] [address] * Amylase, Body fluid (08/14/2024 12:31 PM EDT) Amylase, Fluid 20 U/L 08/14/2024 2:00 PM EDT [facility] Comment:Reference range not established for this test. Abdominal Fluid ABDOMEN / Unknown 025 12:31 PM EDT 08/14/2024 1:31 PM EDT Narrative [facility] - 08/14/2024 2:00 PM EDT This assay has been modified from the private equity associate's specifications and has been validated with performance characteristics determined by [facility] in accordance with federal regulations under the Clinical Laboratory Act Amendment of 1988. The modification has not been approved by the FDA which has determined that such approval is not necessary. The test is for clinical purposes and should not be regarded as investigational or for research use. Dex Jackman MD BODY FLUIDS AND STOOLS ORDERABL ES Final Result [facility] [address] [place] [address]. [place] [address], [facility] * Cytology, Peritoneal Fluid (08/14/2024 12:00 AM EDT) Peritoneal Fluid 08/14/2024 08/15/19 Narrative [facility] - 08/14/2024 12:00 AM EDT CASE: [id number] PATIENT: BLAIR ANDERSON Clinical History: 39M with decompensated EtOH cirrhosis Clinical Diagnosis: 39M with decompensated EtOH cirrhosis Specimen Source: A. Peritoneal Fluid Gross Description: Received 25ml Yellow Fluid CPT Code(s): 46961 X 1 Additional Information: DIAGNOSIS: Peritoneal Fluid (ThinPrep only): NO MALIGNANT CELLS IDENTIFIED INFLAMMATION: Mild acute and chronic inflammation Initial Evaluation performed by Jess CHAMBERS(ASCP) Business Excellence Manager Electronically signed 08/15/2024 11:12:00 AM The Diagnostician signing this report is located at [facility], [address] [place] [address], [id number], , CLIA ID: [id number] Final Diagnosis performed by RORO HOLLIS MD, PhD Pathologist Electronically signed 08/15/2024 11:27:00 AM The Pathologist signing this report is located at [facility], [address] [place] [address], [id number], , CLIA ID: [id number] Dex Jackman MD PATHOLOGY/CYTOLOGY ORDERABLES F inal [...] when the images were obtained by the brick setter operator AND/OR I reviewed the images after they were obtained. I have reviewed the interpretation by the brick setter operator, made any necessary edits and agree [...] ascites Views Obtained: Select all areas imaged (in home sales representative images/clips obtained): abdomen Findings: Other Findings: Moderate volume ascites noted Interpretation: Positive FAST FAST interpretation details: intra-abdominal fluid seen Attending Attestation: I (the Attending) was present when the images were obtained by the brick setter operator AND/OR I reviewed the images after they were obtained. I have reviewed the interpretation by the brick setter operator, made any necessary edits and agree with the interpretation as currently documented. 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, VRE- urine 10/31/2024 06/2 Insurance [facility] [employer] [facility] [employer] Member Subscriber Plan / Payer (Ef fective 2024-Present) Name:Blair Anderson Relation to Subscriber:Self Name:Blair Anderson Payer ID:[id number] Group ID:Not on file Type:Transplant Address: [address] [place] [address] Advance Directives For more information, please contact: [phone] * Full Code (Latest Code Status on File) Date Activated Date Inactivated Comments 10/28/2024 11:13 AM 11/02/2024 10:23 PM * Full Code Date Activated Date Inactivated Comments 10/25/2024 8:22 PM 10/26/2024 6:05 AM * Full Code Date Activated Date Inactivated Comments 10/05/2024 11:47 PM 10/17/2024 2:49 PM * Full Code Date Activated Date Inactivated Comments 09/03/2024 9:42 AM 09/09/2024 10:30 PM * Full Code Date Activated Date Inactivated Comments 08/12/2024 9:55 PM 08/19/2024 4:56 PM Care Teams Outdoor Adventure Instructor Relationship Specialty Start Date End Date Enedina Mcguire NP [address] [place] [address] PCP - General Internal Medicine 10/05/24 Maureen Pantoja, RN Txp Post Coordinator Transplant Hepatology 10/28/24
--- OUTSIDE RECORDS SUMMARY | 2024-11-06 08:35 | XMS_ITS | Encounter Summary ---
Author Organization [facility] Address [address] [place] [address] Care Team Providers Care Shoe Puller Name Role Phone Enedina Mcguire NP Primary Care Provider [phone] Source Comments This information has been disclosed [...] release of HIV test results or diagnoses. [id number] Health Encounter Details Date Type Department Care Team (Late st Contact Info) Description 10/14/2024 Chart Note [facility] Kidney Transplant at [address] [place] [phone] Dean Robles [facility] [address] Social History Tobacco Use Types Packs/Day Years Used Date Smoking Tobacco: Former Cigarettes Smokeless Tobacco: Current Alcohol Use Standard Drinks/Week Comments Yes 0 (1 standard drink = 0.6 oz pure alcohol) History of alcohol abuse, reports no use in 3 week- typically endorses use as 4 glasses of wine a days Utilities Answer Date Recorded In the past 12 months has [employer], [employer], oil, or water [employer] threatened to shut off services in your [...] of this encounter Progress Notes * Dean Guillen 10/14/2024 9:49 AM EDT Dean berman [facility] [address] Case opened TAYLOR Almeida ph [phone] Fx [phone] Liver requested urgent review for slk Approved by [facility] letter to files documented in this encounter Plan of Treatment Upcoming Encounters Date Type Department Care Team (Late st Contact Info) Description 12/05/2024 8:01 AM EDT Hospital Encounter [facility] ENDOSCOPY [address] [place] [phone] Chris Orosco MD [address] [place] [phone] 12/05/2024 8:01 AM EDT - 12/05/2024 8:31 AM EDT Surgery [facility] ENDOSCOPY [address] [place] [phone] Chris Orosco MD [address] [place] [phone] EGD Scheduled Procedures Name Priority Associated Diagnoses Date/Ti me EGD Cirrhosis of liver with ascites, unspecified hepatic cirrhosis type ([facility]) 12/05/2024 8:01 AM EDT documented as of this encounter Visit Diagnoses Not on filedocumented in this encounter Additional Health Concerns Infection Onset Date Last Indicated Resolved Time C. difficile 09/09/2024 09/09/2024 10/27/2024 8:30 AM EDT Assessment Noted Time PHQ-9 Depression Total Score: 17 05/ 025 11:00 AM EDT documented as of this encounter Care Teams Shoe Puller Relationship Specialty Start Date End Date Enedina Mcguire NP [address] [place] [address] PCP - General Internal Medicine 10/05/24 documented as of this encounter
--- OUTSIDE RECORDS SUMMARY | 2024-11-06 08:36 | XMS_ITS | Encounter Summary ---
Author Organization [facility] Address [address] [place] [address] Care Team Providers Care Podiatric Surgeon Name Role Phone Unavailable Primary Care Provider [...] release of HIV test results or diagnoses. [id number] Health Encounter Details Date Type Department Care Team (Late st Contact Info) Description 09/30/2024 Social Work [facility] Liver Transplant at [address] [phone] Kaylin Willard MSW Social History Tobacco Use [...] Recorded In the past 12 months has [employer], gas, oil, or water company threatened to [...] Liver Transplant Patient has been referred to [facility] for liver transplant evaluation. Patient was evaluated by transplant social work assistant on 09/25/2024 and it was determined that patient will need to complete 12 weeks of CD treatment. Patient is engaged in CD treatment with: [facility] Mary Marie [phone] Patient has been attending an IOP program [...] treatment for him. Thank you NUBIA Barros, [facility] documented in this encounter Plan of Treatment Upcoming Encounters Date Type Department Care Team (Late st Contact Info) Description 12/05/2024 8:01 AM EDT Hospital Encounter [facility] ENDOSCOPY [address] [place] [address] Chris Orosco MD [address] [place] [phone] 12/05/2024 8:01 AM EDT - 12/05/2024 8:31 AM EDT Surgery [facility] ENDOSCOPY [address] [place] [phone] Chris Orosco MD [address] [place] [phone] EGD Scheduled Procedures Name Priority Associated Diagnoses [...]
--- OUTSIDE RECORDS SUMMARY | 2024-11-06 08:36 | XMS_ITS | Encounter Summary ---
Author Organization [facility] Address [address] [place] [address] Care Team Providers Care Graduate Civil Engineer Name Role Phone Unavailable Primary [...] release of HIV test results or diagnoses. [id number] Health Encounter Details Date Type Department Care Team (Late st Contact Info) Description 09/26/2024 Abstract [facility] [place] [facility] [address] [place] [phone] Gerri Peterson MD [address] [place] [address] Social History Tobacco Use Types Packs/Day Years Used Date Smoking Tobacco: Former Cigarettes Smokeless Tobacco: Current Alcohol Use Standard Drinks/Week Comments Yes 0 (1 standard drink = 0.6 oz pure alcohol) History of alcohol abuse, reports no use in 3 week- typically endorses use as 4 glasses of wine a days Utilities Answer Date Recorded In the past 12 months has [facility] [employer], gas, oil, or water [employer] threatened to shut off services in your [...] Description 12/05/2024 8:01 AM EDT Hospital Encounter [facility] ENDOSCOPY [address] [place] [phone] Chris Orosco MD [address] [place] [phone] 12/05/2024 8:01 AM EDT - 12/05/2024 8:31 AM EDT Surgery [facility] ENDOSCOPY [address] [facility] [place] [phone] Chris Orosco MD [address] [place] [phone] EGD Scheduled Procedures Name Priority Associated Diagnoses Date/Ti me EGD Cirrhosis of liver with ascites, unspecified hepatic cirrhosis type ([facility]) 12/05/2024 8:01 AM EDT documented as of this encounter Visit Diagnoses Not on filedocumented in this encounter Additional Health Concerns Infection Onset Date Last Indicated Resolved Time C. difficile 09/09/2024 09/09/2024 10/27/2024 8:30 AM EDT Assessment Noted Time PHQ-9 Depression Total Score: 16 025 11:00 AM EDT documented as of this encounter
--- OUTSIDE RECORDS SUMMARY | 2024-11-06 08:36 | XMS_ITS | Encounter Summary ---
Author Organization [facility] Address [facility] [place] [address] Care Team Providers Care Vegetable Grader Name Role Phone Unavailable Primary Care Provider [...] release of HIV test results or diagnoses. [id number] Reason for Visit * Reason Comments Appointment Encounter Details Date Type Department Care Team (Late st Contact Info) Description 09/25/2024 Telephone [facility] Interventional Radiology [address] [place] [phone] De Leon, Shamone Appointment Social History [...] Recorded In the past 12 months has [employer], gas, oil, or water [employer] threatened to shut off services in your [...] time in the past 12 m [facility], were you homeless or living [...] IR Procedure, lvm to return call to [phone] opt 1 to schedule. documented in this encounter Plan of Treatment Upcoming Encounters Date Type Department Care Team (Late st Contact Info) Description 12/05/2024 8:01 AM EDT Hospital Encounter [facility] ENDOSCOPY [address] [place] [address] Chris Orosco MD [address] [place] [phone] 12/05/2024 8:01 AM EDT - 12/05/2024 8:31 AM EDT Surgery [facility] ENDOSCOPY [address] [place] [phone] Chris Orosco MD [address] [place] [phone] EGD Scheduled Procedures Name Priority Associated Diagnoses [...]
--- OUTSIDE RECORDS SUMMARY | 2024-11-06 08:36 | XMS_ITS | Encounter Summary ---
Author Organization [facility] Address [address] [place] [address] Care Team Providers Care Derrick Worker Well Service Name Role Phone Unavailable Primary Care Provider [...] release of HIV test results or diagnoses. [id number] Health Encounter Details Date Type Department Care Team (Late st Contact Info) Description 09/24/2024 Orders Only [facility]ology at [place] [facility] [address] [place] [phone] Gerri Peterson MD [address] [place] [address] Cirrhosis of liver with ascites, [...] Recorded In the past 12 months has [employer], gas, oil, or water company threatened [...] time in the past 12 m [facility], were you homeless or living [...] AM EDT Hospital Encounter [facility] ENDOSCOPY [address] [place] [address] Chris Orosco MD [address] [place] [phone] 12/05/2024 8:01 AM EDT - 12/05/2024 8:31 AM EDT Surgery [facility] ENDOSCOPY [address] [place] [address] Chris Orosco MD [address] [place] [address] EGD Scheduled Procedures Name Priority Associated Diagnoses [...]
--- OUTSIDE RECORDS SUMMARY | 2024-11-06 08:36 | XMS_ITS | Encounter Summary ---
Author Organization [facility] Address [address] [place] [address] Care Team Providers Care Data Technical Lead Name Role Phone Unavailable Primary Care [...] release of HIV test results or diagnoses. [id number] Health Encounter Details Date Type Department Care Team (Late st Contact Info) Description 09/25/2024 Orders Only [facility] Liver Transplant at [address] [phone] Mary Butler, RN Pre-transplant evaluation for chronic [...] Recorded In the past 12 months has [employer], gas, oil, or water [employer] threatened to shut off services in your [...] in the past 12 m [facility], were you homeless or living in a skilled nursing (including now)? No 09/05/2024 Yearly Questionnaire Answer [...] [facility] ENDOSCOPY [address] [place] [phone] Chris Orosco MD [address] [place] [phone] 12/05/2024 8:01 AM EDT - 12/05/2024 8:31 AM EDT Surgery [facility] ENDOSCOPY [address] [place] [phone] Chris Orosco MD [address] [place] [phone] EGD Scheduled Procedures Name Priority Associated Diagnoses Date/Ti me EGD Cirrhosis of liver with ascites, unspecified hepatic cirrhosis type ([facility]) 12/05/2024 8:01 AM EDT documented as of this encounter Results * Urine Drug Comprehensive Panel, Confirmation (09/25/2024 11:55 AM EDT) BARBITURATES NOT PRESENT 09/29/2024 12:39 PM EDT [facility] BENZODIAZEPINES NOT PRESENT 09/30/19 12:39 PM EDT [facility] CANNABINOIDS NOT PRESENT 09/29/2024 12:39 PM EDT [facility] WATER PUMP ASSEMBLER STIMULANTS NOT PRESENT 12:39 PM EDT [facility] OPIOID ANALGESICS PRESENT 025 12:39 PM EDT [facility] Tramadol >1000 ng/mL 09/29/2024 12:39 PM EDT [facility] OPIOID ANTAGONISTS NOT PRESENT 09/29 12:39 PM EDT [facility] SEDATIVES/MUSCLE RELAXANTS NOT PRESENT 09/29/2024 12:39 PM EDT [facility] TRICYCLIC ANTIDEPRESSANTS NOT PRESENT 09/29/2024 12:39 PM EDT [facility] Creatinine, Ur 122.10 mg/dL 09/26/2024 11:30 AM EDT [facility] Comment:Reference range not established for this test. pH 5.8 4.7 - 7.8 09/26/2024 11:30 AM EDT [facility] Specific [place] 1.010 1.003 - 1.035 09/26/2024 11:30 AM EDT [facility] Urine 09/25/2024 11:5 5 AM EDT 09/25/2024 12:19 PM EDT Narrative [facility] - 09/29/2024 12:39 PM EDT This test has been developed and its performance characteristics determined by [facility] which is certified under the [...] Chinedu Sidhu MD URINE ORDERABLES Final Result [facility] [address] * Phosphatidylethanol Confirmation, B (09/25/2024 11:55 AM EDT) PETH 16:0/18.1 (POPETH) <10 Cutoff: 10 ng/mL 09/29/2024 12:24 PM EDT [facility] Comment: Phosphatidylethanol (PEth) homologues result [...] Cutoff: 10 ng/mL 09/29/2024 12:24 PM EDT [facility] Comment: PEth 16:0/18:2 (PLPEth) Reference ranges are not well established PEth Interpretation Negative. 09/29 12:24 PM EDT [facility] Comment: ADDITIONAL INFORMATION This report is intended for use in clinical monitoring and management of patients. It is not intended for use in employment-related testing. This test was developed and its performance characteristics determined by [facility] in a manner consistent with CLIA requirements. This test has not been cleared or approved by the U.S. Food and Drug Administration. Test Performed by: [facility] [place] [address] Cash Applications Coordinator: Kathy Ortiz Ph.D.; CLIA# [id number] Whole Blood 09/25/2024 11:5 5 AM EDT 09/29/2024 12:24 PM EDT Chinedu Sidhu MD LAB BLOOD ORDERABLES Final Re sult [facility] [address] documented in this encounter Visit Diagnoses [...]
--- OUTSIDE RECORDS SUMMARY | 2024-11-06 08:38 | XMS_ITS | Encounter Summary ---
Author Organization [facility] Address [address] [place] [address] Care Team Providers Care Fretted Instrument Maker Hand Name Role Phone Enedina Mcguire NP Primary Care Provider [phone] Source Comments This information has been disclosed [...] release of HIV test results or diagnoses. [id number] Encounter Details Date Type Department Care [...] Recorded In the past 12 months has [employer], oil, or water [employer] threatened to shut off services in your [...] 8:01 AM EDT Hospital Encounter [facility] ENDOSCOPY [address] [place] [address] Chris Orosco MD [address] [place] [phone] 12/05/2024 8:01 AM EDT - 12/05/2024 8:31 AM EDT Surgery [facility] ENDOSCOPY [address] [place] [address] Chris Orosco MD [address] [place] [phone] EGD Scheduled Procedures Name Priority Associated Diagnoses Date/Ti me EGD Cirrhosis of liver with ascites, unspecified hepatic cirrhosis type ([facility]) 12/05/2024 8:01 AM EDT documented [...] documented as of this encounter Care Teams Fretted Instrument Maker Hand Relationship Specialty Start Date End Date Enedina Mcguire NP [address] [place] [address] PCP - General Internal Medicine 10/05/24 documented as of this encounter
--- OUTSIDE RECORDS SUMMARY | 2024-11-06 08:38 | XMS_ITS | Encounter Summary ---
Author Organization [facility] Address [address] [place] [address] Care Team Providers Care Licensed Embalmer Name Role Phone Enedina Mcguire NP Primary Care Provider [phone] Source Comments This information has been disclosed [...] release of HIV test results or diagnoses. [id number] [facility] Encounter Details Date Type Department Care Team (Late st Contact Info) Description 10/09/2024 Social Work [facility] Liver Transplant at [address] [phone] Kaylin Willard MSW Social History Tobacco Use [...] Recorded In the past 12 months has [employer], gas, oil, or water [employer] threatened to shut off services in your [...] Liver Transplant Patient has been referred to [facility] for liver transplant evaluation. Patient was evaluated by transplant perinatal social worker on 09/25/2024 and it was determined that patient will need to complete 12 weeks of CD treatment. Patient is engaged in CD treatment with: [facility] [phone] SW met with patient and spouse at [...] during hospitalization pending mental status. NUBIA Barros, HIGH SCHOOL PHYSICAL EDUCATION TEACHER documented in this encounter Plan of Treatment Upcoming Encounters Date Type Department Care Team (Late st Contact Info) Description 12/05/2024 8:01 AM EDT Hospital Encounter [facility] ENDOSCOPY [address] [place] [phone] Chris Orosco MD [address] [place] [phone] 12/05/2024 8:01 AM EDT - 12/05/2024 8:31 AM EDT Surgery [facility] ENDOSCOPY [address] [place] [phone] Chris Orosco MD [address] [place] [phone] EGD Scheduled Procedures Name Priority Associated Diagnoses Date/Ti me EGD Cirrhosis of liver with ascites, unspecified hepatic cirrhosis type ([facility]) 12/05/2024 8:01 AM EDT documented as of this encounter Visit Diagnoses Not on filedocumented in this encounter Additional Health Concerns Infection Onset Date Last Indicated Resolved Time C. difficile 09/09/2024 09/09/2024 10/27/2024 8:30 AM EDT Assessment Noted Time PHQ-9 Depression Total Score: 17 025 11:00 AM EDT documented as of this encounter Care Teams Licensed Embalmer Relationship Specialty Start Date End Date Enedina Mcguire NP [address] [place] [address] PCP - General Internal Medicine 10/05/24 documented as of this encounter
--- OUTSIDE RECORDS SUMMARY | 2024-11-06 08:38 | XMS_ITS | Encounter Summary ---
Author Organization [facility] Address [address] [place] [address] Care Team Providers Care Film Sound Engineer Name Role Phone Enedina Mcguire NP Primary Care Provider [phone] Source Comments This information has been disclosed [...] release of HIV test results or diagnoses. [id number] Health Encounter Details Date Type Department Care Team (Late st Contact Info) Description 10/09/[address] [facility] Kidney Transplant at [address] [place] [phone] Dean Robles [facility] [phone] call from Elle [facility] fx [phone] Social History Tobacco Use Types Packs/Day Years Used Date Smoking Tobacco: Former Cigarettes Smokeless Tobacco: Current Alcohol Use Standard Drinks/Week Comments Yes 0 (1 standard drink = 0.6 oz pure alcohol) History of alcohol abuse, reports no use in 3 week- typically endorses use as 4 glasses of wine a days Utilities Answer Date Recorded In the past 12 months has [employer], gas, oil, or water company threatened to [...] of this encounter Progress Notes * Dean Hillman Travis - 10/09/2024 11:57 AM EDT Dean berman [facility] [phone] call from Elle the R fx [phone] Set her all clinical Rquesting a urgent review for liver txp UMR/optum case opened 10/05/24 Pends response documented in this encounter Plan of Treatment Upcoming Encounters Date Type Department Care Team (Late st Contact Info) Description 12/05/2024 8:01 AM EDT Hospital Encounter [facility] ENDOSCOPY [address] [place] [phone] Chris Orosco MD [address] [place] [phone] 12/05/2024 8:01 AM EDT - 12/05/2024 8:31 AM EDT Surgery [facility] ENDOSCOPY [address] [place] [phone] Chris Orosco MD [address] [place] [phone] EGD Scheduled Procedures Name Priority Associated Diagnoses [...] documented as of this encounter Care Teams Film Sound Engineer Relationship Specialty Start Date End Date Enedina Mcguire NP [address] [place] [address] PCP - General Internal Medicine 10/05/24 documented as of this encounter
--- OUTSIDE RECORDS SUMMARY | 2024-11-06 08:38 | XMS_ITS | Encounter Summary ---
Author Organization [facility] Address [address] [place] [address] Care Team Providers Care Milk Powder Grinder Name Role Phone Enedina Mcguire NP Primary Care Provider [phone] Source Comments This information has been disclosed [...] release of HIV test results or diagnoses. [id number] Health Encounter Details Date Type Department Care Team (Late st Contact Info) Description 10/07/2024 Chart Note [facility] Kidney Transplant at [address] [place] [phone] Anny Cote RN Received notice of [...] Recorded In the past 12 months has [employer], gas, oil, or water [employer] threatened to shut off services in your [...] 8:01 AM EDT Hospital Encounter [facility] ENDOSCOPY [address] [place] [address] Chris Orosco MD [address] [place] [phone] 12/05/2024 8:01 AM EDT - 12/05/2024 8:31 AM EDT Surgery [facility] ENDOSCOPY [address] [place] [address] Chris Orosco MD [address] [place] [phone] EGD Scheduled Procedures Name Priority Associated Diagnoses Date/Ti me EGD Cirrhosis of liver with ascites, unspecified hepatic cirrhosis type ([facility]) 12/05/2024 8:01 AM EDT documented [...] as of this encounter Care Teams Milk Powder Grinder Relationship Specialty Start Date End Date Enedina Mcguire NP [address] [place], [place] [phone] PCP - General Internal Medicine 10/05/24 documented as of this encounter
--- OUTSIDE RECORDS SUMMARY | 2024-11-06 08:38 | XMS_ITS | Encounter Summary ---
Author Organization [facility] Address [address] [place] [address] Care Team Providers Care Tailer Off Name Role Phone Enedina Mcguire NP Primary Care Provider [phone] Source Comments This information has been disclosed [...] release of HIV test results or diagnoses. [id number] Health Encounter Details Date Type Department Care Team (Late st Contact Info) Description 10/07/2024 Chart Note [facility] Liver Transplant at [address] [place] [phone] Alexandro Sams, RN Spoke with Julien Anderson [...] Recorded In the past 12 months has [employer], gas, oil, or water [employer] threatened to shut off services in [...] Encounter [facility] ENDOSCOPY [address] [place] [phone] Chris Orosco MD [address] [place] [phone] 12/05/2024 8:01 AM EDT - 12/05/2024 8:31 AM EDT Surgery [facility] ENDOSCOPY [address] [place] [phone] Chris Orosco MD [address] [place] [phone] EGD Scheduled Procedures Name Priority Associated [...] documented as of this encounter Care Teams Tailer Off Relationship Specialty Start Date End Date Enedina Mcguire NP [address] [place] [address] PCP - General Internal Medicine 10/05/24 documented as of this encounter
--- OUTSIDE RECORDS SUMMARY | 2024-11-06 08:38 | XMS_ITS | Encounter Summary ---
Author Organization [facility] Address [address] [place] [address] Care Team Providers Care Shirt Line Operator Name Role Phone Enedina Mcguire NP Primary Care Provider [phone] Source Comments This information has been disclosed [...] release of HIV test results or diagnoses. [id number] Encounter Details Date Type Department Care Team (Late st Contact Info) Description 10/07/2024 Chart Note [facility] Kidney Transplant at [address] [place] [phone] Chey Nicole MA This MA received new [...] Recorded In the past 12 months has [employer], gas, oil, or water [employer] threatened to shut off services in your [...] as of this encounter Progress Notes * Rebeccapalomo RAFFI Nicole - 10/07/2024 1:03 PM EDT This MA received new referral for PT. Will FU once financially cleared. An [employer] fax was sent to [facility] and or referring office to notify of referral acceptance. documented in this encounter Plan of Treatment Upcoming Encounters Date Type Department Care Team (Late st Contact Info) Description 12/05/2024 8:01 AM EDT Hospital Encounter [facility] ENDOSCOPY [address] [place] [address] Chris Orosco MD [address] [place] [phone] 12/05/2024 8:01 AM EDT - 12/05/2024 8:31 AM EDT Surgery [facility] ENDOSCOPY [address] [place] [phone] Chris Orosco MD [address] [place] [phone] EGD Scheduled Procedures Name Priority Associated Diagnoses Date/Ti me EGD Cirrhosis of liver with ascites, unspecified hepatic cirrhosis type ([facility]) 12/05/2024 8:01 AM EDT documented as [...] documented as of this encounter Care Teams Shirt Line Operator Relationship Specialty Start Date End Date Enedina Mcguire NP [address] [place] [address] PCP - General Internal Medicine 10/05/24 documented as of this encounter
--- OUTSIDE RECORDS SUMMARY | 2024-11-06 08:38 | XMS_ITS | Encounter Summary ---
Author Organization [facility] Address [address] [place] [address] Care Team Providers Care Material Handling Crew Supervisor Name Role Phone Enedina Mcguire NP Primary Care Provider [phone] Source Comments This information has been disclosed [...] release of HIV test results or diagnoses. [id number] Health Encounter Details Date Type Department Care Team (Late st Contact Info) Description 10/09/2024 Chart Note [facility] Kidney Transplant at [address] [place] [phone] Dean Robles [facility] [address] Social History Tobacco Use Types Packs/Day Years Used Date Smoking Tobacco: Former Cigarettes Smokeless Tobacco: Current Alcohol Use Standard Drinks/Week Comments Yes 0 (1 standard drink = 0.6 oz pure alcohol) History of alcohol abuse, reports no use in 3 week- typically endorses use as 4 glasses of wine a days Utilities Answer Date Recorded In the past 12 months has [employer], [employer], oil, or water [employer] threatened to shut off services in your [...] this encounter Progress Notes * Dean Guillen 10/09/2024 10:37 AM EDT Dean berman [facility] [address] Called Cammie Wing [phone] Advised of brandon martínez she was aware Assigning a cm to call me Requested all clinical Advised this is now a SLK Pending cm call back documented in this encounter Plan of Treatment Upcoming Encounters Date Type Department Care Team (Late st Contact Info) Description 12/05/2024 8:01 AM EDT Hospital Encounter [facility] ENDOSCOPY [address] [place] [address] Chris Orosco MD [address] [place] [phone] 12/05/2024 8:01 AM EDT - 12/05/2024 8:31 AM EDT Surgery [facility] ENDOSCOPY [address] [place] [phone] Chris Orosco MD [address] [place] [phone] EGD Scheduled Procedures Name Priority Associated Diagnoses [...] documented as of this encounter Care Teams Material Handling Crew Supervisor Relationship Specialty Start Date End Date Enedina Mcguire NP [address] [place] [address] PCP - General Internal Medicine 10/05/24 documented as of this encounter
--- OUTSIDE RECORDS SUMMARY | 2024-11-06 08:38 | XMS_ITS | Encounter Summary ---
Author Organization [facility] Address [address] [place] [address] Care Team Providers Care Director Hydrogen Storage Engineering Name Role Phone Enedina Mcguire NP Primary Care Provider [phone] Source Comments This information has been disclosed [...] release of HIV test results or diagnoses. [id number] Encounter Details Date Type Department Care Team (Late st Contact Info) Description 10/07/2024 Chart Note [facility] Kidney Transplant at [address] [address] Anny Cote RN Simultaneous Liver-Kidney Transplant Referral [...] Recorded In the past 12 months has [employer], gas, oil, or water [employer] threatened to shut off services in your [...] Financial Clearance is pending sent to financial examiner [x] HLA testing to be ordered once [...] Dialysis Unit: (Not currently on dialysis) Outside planishing hammer operator: Dr. Curran, Yovanny Nicholson MD Routed to kidney referral intake team. documented in this encounter Plan of Treatment Upcoming Encounters Date Type Department Care Team (Late st Contact Info) Description 12/05/2024 8:01 AM EDT Hospital Encounter [facility] ENDOSCOPY [address] [place] [phone] Chris Orosco MD [address] [place] [phone] 12/05/2024 8:01 AM EDT - 12/05/2024 8:31 AM EDT Surgery [facility] ENDOSCOPY [address] [place] [phone] Chris Orosco MD [address] [place] [phone] EGD Scheduled Procedures Name Priority Associated [...] as of this encounter Care Teams Director Hydrogen Storage Engineering Relationship Specialty Start Date End Date Enedina Mcguire NP [address] [place] [address] PCP - General Internal Medicine 10/05/24 documented as of this encounter
--- OUTSIDE RECORDS SUMMARY | 2024-11-06 08:40 | XMS_ITS | Data Portability ---
Author Organization [facility],, Main Office Address [address] [place] [address] Assessment No assessment recorded. Plan of Treatment [...] Available No t Available BD Regular Bevel Thicket 18 gauge x 1 active Not Available [...] Updated DateTime 3 193.04 cm 29.1 kg/m2 911536. 58 g 112 /min 97.7 [degF] 141 mm[Hg] 84 mm[Hg] [facility], 3 13:14:11 Date Recorded Body height Body mass index (BMI) Body weight Heart rate Body temperature Systolic blood pressure Diastolic blood pressure Provider Name and Address Organization Details Last Updated DateTime 4 193.04 cm 30.4 kg/m2 470968. 09 g 92 /min 97.5 [degF] 176 mm[Hg] 104 mm[Hg] [facility], 4 14:06:31 Date Recorded Body temperature Provider Name a nd Address Organization Details Last Updated DateTime 12/27/2020 99.5 [degF] Cuca Strickland [facility], 12/27/2020 13:41:33 Date Recorded Body weight Heart rate Body temperature Systolic blood pressure Diastolic blood pressure Provider Name and Address Organization Details Last Updated DateTime 04/03/2022 508417. 95 g 93 /min 97.6 [degF] 114 mm[Hg] 83 mm[Hg] Ashley Wallace [facility], 14:42:57 Social History None recorded. Functional Status None recorded. Mental Status None recorded. Family History Nothing Reported. Medical History No medical history recorded. Past Encounters Encounter ID Performer Location Encounter Start Date Encounter Closed Date Diagnosis/Indication Diagnosis SNOMED-CT Code Diagnosis ICD10 Code Diagnosis Note [id number] Yung Felipe DO Main Office [address] [place] [address] 12/27/2020 13:24:24 12/27/2020 14:00:19 Evaluation of semen fertility 147200272 N46.9 semen analysis [id number] Yung Felipe DO Main Office [address] [place] [address] 07/04/2021 14:47:56 07/04/2021 16:00:05 Evaluation of semen fertility 918453638 N46.9 semen analysis [id number] Yung Felipe DO Main Office [address] [place] [address] 05/31/2022 13:04:00 05/31/2022 13:50:01 Evaluation of semen fertility 297129420 N46.9 semen analysis + viability: analysis by Dr. Ruiz [id number] Yung Felipe DO Main Office [address] [facility] [place] [address] 10/22/2023 13:58:48 10/22/2023 14:31:18 Evaluation of semen fertility 546197615 N46.9 semen analysis + viability: analysis by Dr. Ruiz Health Concerns Section Related Observation LastModified by Organization Detai ls LastModified Time None Recorded Concern Status LastModified by Organization Details LastModified Time None Recorded Advance Directives Directive None Recorded Payers Insurance Date Sequence Insurance Name Policy Number Policy Boyer Covered Member ID Boyer Member ID Guarantor Name 12/13/2020 1 *SELF PAY* Malcolm Anderson Notes Date Note Type Note Provider Name and Address Organization Details Recorded Time 12/27/2020 text/html semen analysis Yung Felipe DO [address], [place], [address], [facility], 08/06/2021 23:24:22 05/31/2022 text/html semen analysis + viability [address], [place], [address], [facility], 05/31/2022 13:57:30 10/22/2023 text/html semen analysis [address], [place], [address], [facility], 10/22/2023 16:29:00
--- OUTSIDE RECORDS SUMMARY | 2024-11-06 08:42 | XMS_ITS | Encounter Summary ---
Author Organization [facility] Address [address] [place] [address] Care Team Providers Care Fisheries Technical Officer Name Role Phone Enedina Mcguire NP Primary Care Provider [phone] Source Comments This information has been disclosed [...] release of HIV test results or diagnoses. [id number] Reason for Visit * Reason Comments DDLT patient instructions Encounter Details Date Type Department Care Team ([facility] st Contact Info) Description 10/25/2024 Telephone [facility] Liver Transplant at [address] [address] Krissy Crowell RN DDLT patient instructions Social History Tobacco Use Types Packs/Day Years Used Date Smoking Tobacco: Former Cigarettes Smokeless Tobacco: Current Alcohol Use Standard Drinks/Week Comments Yes 0 (1 standard drink = 0.6 oz pure alcohol) History of alcohol abuse, reports no use in 3 week- typically endorses use as 4 glasses of wine a days Utilities Answer Date Recorded In the past 12 months has [employer], gas, oil, or water [employer] threatened to shut off services in [...] encounter Miscellaneous Notes * Telephone Encounter - Krissy Crowell RN - 10/25/2024 7:[address] Domínguez, please bring patient in for SLK. Patient will arrive to PACU, ETA is [phone]. [address] And Building Decorator (Humaira), PACU (Emily), SICU (Lizeth), OR (Omar), txp sgy resident (Aysha), and admitting (Loraine) called with updates on patient arrival. documented in this encounter Plan of Treatment Upcoming Encounters Date Type Department Care Team (Late st Contact Info) Description 12/05/2024 8:01 AM EDT Hospital Encounter [facility] ENDOSCOPY [address] [place] [address] Chris Orosco MD [address] [place] [address] 12/05/2024 8:01 AM EDT - 12/05/2024 8:31 AM EDT Surgery [facility] ENDOSCOPY [address] [place] [address] Chris Orosco MD [address] [place] [phone] EGD Scheduled Procedures Name Priority Associated Diagnoses Date/Ti me EGD Cirrhosis of liver with ascites, unspecified hepatic cirrhosis type ([facility]) 12/05/2024 8:01 AM EDT documented as of this encounter Visit Diagnoses Not on filedocumented in this encounter Additional Health Concerns Infection Onset Date Last Indicated Resolved Time C. difficile 09/09/2024 09/09/2024 10/27/2024 8:30 AM EDT Assessment Noted Time PHQ-9 Depression Total Score: 17 05/2 025 11:00 AM EDT documented as of this encounter Care Teams Fisheries Technical Officer Relationship Specialty Start Date End Date Enedina Mcguire NP [address] [place] [address] PCP - General Internal Medicine 10/05/24 documented as of this encounter
--- OUTSIDE RECORDS SUMMARY | 2024-11-06 08:42 | XMS_ITS | Encounter Summary ---
Author Organization [facility] Address [address] [place] [address] Care Team Providers Care Sleep Manager Name Role Phone Enedina Mcguire NP Primary Care Provider [phone] Source Comments This information has been disclosed [...] release of HIV test results or diagnoses. [id number] Encounter Details Date Type Department Care Team (Late st Contact Info) Description 10/26/2024 Chart Note [facility] Liver Transplant at [address] [place] [phone] Geri Vasquez, ЮЛИЯ Social History Tobacco Use Types Packs/Day Years Used Date Smoking Tobacco: Former Cigarettes Smokeless Tobacco: Current Alcohol Use Standard Drinks/Week Comments Yes 0 (1 standard drink = 0.6 oz pure alcohol) History of alcohol abuse, reports no use in 3 week- typically endorses use as 4 glasses of wine a days Utilities Answer Date Recorded In the past 12 months has [employer], gas, oil, or water [employer] threatened to shut off services in your [...] Hospital Encounter [facility] ENDOSCOPY [address] [place] [address] Chris Orosco MD [address] [place] [phone] 12/05/2024 8:01 AM EDT - 12/05/2024 8:31 AM EDT Surgery [facility] ENDOSCOPY [address] [place] [address] Chris Orosco MD [address] [place] [phone] EGD Scheduled Procedures Name Priority Associated Diagnoses Date/Ti me EGD Cirrhosis of liver with ascites, unspecified hepatic cirrhosis type ([facility]-HCC) 12/05/2024 8:01 AM EDT documented as of this encounter Visit Diagnoses Not on filedocumented in this encounter Additional Health Concerns Infection Onset Date Last Indicated Resolved Time C. difficile 09/09/2024 09/09/2024 10/27/2024 8:30 AM EDT Assessment Noted Time PHQ-9 Depression Total Score: 17 05/2 025 11:00 AM EDT documented as of this encounter Care Teams Sleep Manager Relationship Specialty Start Date End Date Enedina Mcguire NP [address] [place] [address] PCP - General Internal Medicine 10/05/24 documented as of this encounter
--- OUTSIDE RECORDS SUMMARY | 2024-11-06 08:42 | XMS_ITS | Encounter Summary ---
Author Organization [facility] Address [address] [place] [address] Care Team Providers Care Farm Crops Teacher Name Role Phone Enedina Mcguire NP Primary Care Provider [phone] Source Comments This information has been disclosed [...] release of HIV test results or diagnoses. [id number] Encounter Details Date Type Department Care Team (Latest Contact Info) Description 10/25/2024 Travel Social History Tobacco Use Types Packs/Day Years Used Date Smoking Tobacco: Former Cigarettes Smokeless Tobacco: Current Alcohol Use Standard Drinks/Week Comments Yes 0 (1 standard drink = 0.6 oz pure alcohol) History of alcohol abuse, reports no use in 3 week- typically endorses use as 4 glasses of wine a days Utilities Answer Date Recorded In the past 12 months has [employer], oil, or water [employer] threatened to shut off services in your [...] [facility] [place] ENDOSCOPY [address] [place] [address] Chris Orosco MD [address] [place] [phone] 12/05/2024 8:01 AM EDT - 12/05/2024 8:31 AM EDT Surgery [facility] ENDOSCOPY [address] [place] [phone] Chris Orosco MD [address] [place] [phone] EGD Scheduled Procedures Name Priority Associated Diagnoses [...] documented as of this encounter Care Teams Farm Crops Teacher Relationship Specialty Start Date End Date Enedina Mcguire NP [address] [place] [address] PCP - General Internal Medicine 10/05/24 documented as of this encounter
--- OUTSIDE RECORDS SUMMARY | 2024-11-06 08:43 | XMS_ITS | Encounter Summary ---
Author Organization [facility] Address [address] [place] [address] Care Team Providers Care Small Package And Bundle Sorter Clerk Name Role Phone Enedina Mcguire NP Primary Care Provider [phone] Source Comments This information has been disclosed [...] release of HIV test results or diagnoses. [id number] Health Encounter Details Date Type Department Care Team (Late st Contact Info) Description 10/26/2024 Chart Note [facility] Kidney Transplant at [address] [place] [phone] Geri Vasquez, ЮЛИЯ Social History Tobacco Use [...] Recorded In the past 12 months has [employer], gas, oil, or water [employer] threatened to shut off services in your [...] AM EDT Hospital Encounter [facility] ENDOSCOPY [address] [place] [address] Chris Orosco MD [address] [place] [phone] 12/05/2024 8:01 AM EDT - 12/05/2024 8:31 AM EDT Surgery [facility] ENDOSCOPY [address] [place] [address] Chris Orosco MD [address] [place] [phone] EGD Scheduled Procedures Name Priority Associated Diagnoses [...] documented as of this encounter Care Teams Small Package And Bundle Sorter Clerk Relationship Specialty Start Date End Date Enedina Mcguire NP [address] [place] [address] PCP - General Internal Medicine 10/05/24 documented as of this encounter
--- OUTSIDE RECORDS SUMMARY | 2024-11-06 08:44 | XMS_ITS | Encounter Summary ---
Author Organization [facility] Address [facility] [place] [address] Care Team Providers Care Emergency Service Restorer Name Role Phone Enedina Mcguire NP Primary Care Provider [phone] Source Comments This information has been disclosed [...] release of HIV test results or diagnoses. [id number] Health Encounter Details Date Type Department Care Team (Late st Contact Info) Description 10/22/2024 Orders Only [facility] [address] [place] [address] Abdulkadir Gaspar MD [address] [facility] [address] [place] [address] Social History Tobacco Use Types Packs/Day Years Used Date Smoking Tobacco: Former Cigarettes Smokeless Tobacco: Current Alcohol Use Standard Drinks/Week Comments Yes 0 (1 standard drink = 0.6 oz pure alcohol) History of alcohol abuse, reports no use in 3 week- typically endorses use as 4 glasses of wine a days Utilities Answer Date Recorded In the past 12 months has [employer], gas, oil, or water company threatened to [...] Description 12/05/2024 8:01 AM EDT Hospital Encounter [facility] ENDOSCOPY [address] [place] [address] Chris Orosco MD [address] [place] [phone] 12/05/2024 8:01 AM EDT - 12/05/2024 8:31 AM EDT Surgery [facility] ENDOSCOPY [address] [place] [address] Chris Orosco MD [address] [place] [address] EGD Scheduled Procedures Name Priority Associated Diagnoses Date/Ti me EGD Cirrhosis of liver with ascites, unspecified hepatic cirrhosis type ([facility]) 12/05/2024 8:01 AM EDT documented as of this encounter Procedures Procedure Name Priority Date/Time Associated Diagnosis Comments [facility] - HLA ANTIBODY-DETAILED REPORT Routine 10/22/2024 12:32 PM EDT documented in this encounter Results * [facility] - HLA Antibody-Detailed Report (10/22/2024 12:32 PM EDT) 10/22/2024 12:3 2 PM EDT us Abdulkadir Gaspar MD LAB BLOOD ORDERABLES Final Resul t [facility] [address] [place] [address] documented in this encounter Visit Diagnoses Not on filedocumented in this encounter Additional Health Concerns Infection Onset Date Last Indicated Resolved Time C. difficile 09/09/2024 09/09/2024 10/27/2024 8:30 AM EDT Assessment Noted Time PHQ-9 Depression Total Score: 17 025 11:00 AM EDT documented as of this encounter Care Teams Emergency Service Restorer Relationship Specialty Start Date End Date Enedina Mcguire NP [address] [place], [place] [phone] PCP - General Internal Medicine 10/05/24 documented as of this encounter
--- OUTSIDE RECORDS SUMMARY | 2024-11-06 08:44 | XMS_ITS | Encounter Summary ---
Author Organization [facility] Address [address] [place] [address] Care Team Providers Care Supervisor Pumping Station Name Role Phone Enedina Mcguire NP Primary Care Provider [phone] Source Comments This information has been disclosed [...] release of HIV test results or diagnoses. [id number] Health Encounter Details Date Type Department Care Team (Late st Contact Info) Description 10/22/2024 Chart Note PROVIDER NEPHROLOGY [address] [place] [address] Aaron Gonzalez MD [address] [place] [phone] Candidacy for a simultaneous liver-kidney transplant Social History Tobacco Use Types Packs/Day Years Used Date Smoking Tobacco: Former Cigarettes Smokeless Tobacco: Current Alcohol Use Standard Drinks/Week Comments Yes 0 (1 standard drink = 0.6 oz pure alcohol) History of alcohol abuse, reports no use in 3 week- typically endorses use as 4 glasses of wine a days Utilities Answer Date Recorded In the past 12 months has [employer], gas, oil, or water [employer] threatened to shut off services in your [...] as of this encounter Progress Notes * Aaron Gonzalez MD - 10/22/2024 12:41 PM EDT Candidacy for a simultaneous liver-kidney transplant I had seen Julien Anderson in the hospital and a full kidney evaluation was completed at that time. I am now updating the status of his candidacy as he now meets criteria for an SLK. 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 In the event that Julien Anderson becomes ineligible for a liver transplant, he will no longer be a candidate for a kidney transplant and his referral will be closed. This has been discussed with Mr. Julien Anderson. I have discussed this plan with the registration coordinator and the liver transplant team. documented in this encounter Plan of Treatment Upcoming Encounters Date Type Department Care Team (Late st Contact Info) Description 12/05/2024 8:01 AM EDT Hospital Encounter [facility] ENDOSCOPY [address] [place] [address] Chris Orosco MD [address] [place] [phone] 12/05/2024 8:01 AM EDT - 12/05/2024 8:31 AM EDT Surgery [facility] ENDOSCOPY [address] [place] [address] Chris Orosco MD [address] [place] [phone] EGD Scheduled Procedures Name Priority Associated Diagnoses Date/Ti me EGD Cirrhosis of liver with ascites, unspecified hepatic cirrhosis type ([facility]) 12/05/2024 8:01 AM EDT documented as of this encounter Visit Diagnoses Not on filedocumented in this encounter Additional Health Concerns Infection Onset Date Last Indicated Resolved Time C. difficile 09/09/2024 09/09/2024 10/27/2024 8:30 AM EDT Assessment Noted Time PHQ-9 Depression Total Score: 17 025 11:00 AM EDT documented as of this encounter Care Teams Supervisor Pumping Station Relationship Specialty Start Date End Date Enedina Mcguire NP [address] [place] [address] PCP - General Internal Medicine 10/05/24 documented as of this encounter
--- OUTSIDE RECORDS SUMMARY | 2024-11-06 08:44 | XMS_ITS | Encounter Summary ---
Author Organization [facility] Address [facility] [place] [address] Care Team Providers Care Tablet Making Machine Operator Name Role Phone Enedina Mcguire NP Primary Care Provider [phone] Source Comments This information has been disclosed [...] release of HIV test results or diagnoses. [id number] Health Encounter Details Date Type Department Care Team (Late st Contact Info) Description 10/27/2024 Orders Only [facility] [address] [place] [address] Abdulkadir Gaspar MD [address] [facility] [address] [facility] [place] [address] Social History Tobacco Use Types Packs/Day Years Used Date Smoking Tobacco: Former Cigarettes Smokeless Tobacco: Current Alcohol Use Standard Drinks/Week Comments Yes 0 (1 standard drink = 0.6 oz pure alcohol) History of alcohol abuse, reports no use in 3 week- typically endorses use as 4 glasses of wine a days Utilities Answer Date Recorded In the past 12 months has [employer], gas, oil, or water company threatened to [...] Hospital Encounter [facility] ENDOSCOPY [address] [place] [address] Chris Orosco MD [address] [place] [phone] 12/05/2024 8:01 AM EDT - 12/05/2024 8:31 AM EDT Surgery [facility] ENDOSCOPY [address] [place] [address] Chris Orosco MD [address] [place] [address] EGD Scheduled Procedures Name Priority Associated Diagnoses Date/Ti me EGD Cirrhosis of liver with ascites, unspecified hepatic cirrhosis type ([facility]-H[facility]) 12/05/2024 8:01 AM EDT documented as of this encounter Procedures Procedure Name Priority Date/Time Associated Diagnosis Comments HOX - HLA ANTIBODY REPORT Routine 10/27/2024 4:16 AM EDT documented in this encounter Results * Hox - HLA Antibody Report (10/27/2024 4:16 AM EDT) 10/27/2024 4:16 AM EDT us Abdulkadir Gaspar MD LAB BLOOD ORDERABLES Final Resul t [facility] [address] [facility] [place] [address] documented in this encounter Visit Diagnoses Not on filedocumented in this encounter Additional Health Concerns Infection Onset Date Last Indicated Resolved Time C. difficile 09/09/2024 09/09/2024 10/27/2024 8:30 AM EDT Assessment Noted Time PHQ-9 Depression Total Score: 17 025 11:00 AM EDT documented as of this encounter Care Teams Tablet Making Machine Operator Relationship Specialty Start Date End Date Enedina Mcguire NP [address] [place], [place] [phone] PCP - General Internal Medicine 10/05/24 documented as of this encounter
--- OUTSIDE RECORDS SUMMARY | 2024-11-06 08:44 | XMS_ITS | Encounter Summary ---
Author Organization [facility] Address [facility] [place] [address] Care Team Providers Care Title Manager Name Role Phone Unavailable Primary Care [...] release of HIV test results or diagnoses. [id number] Reason for Visit * Reason Comments Orders Order Clarification Request Encounter Details Date Type Department Care Team (Late st Contact Info) Description 09/23/2024 Telephone [facility] Gastroenterology at [facility] [address] [place] [address] Gerri Peterson MD [address] [place] [address] Orders (Order Clarification Request/) Social [...] Recorded In the past 12 months has [employer], gas, oil, or water company threatened to [...] requested. I was transferred tolab staff manager planning. No answer. Message left to please indicate the lab orders that they are in need of and we will fax the orders. RN provided direct nurse line as well as main number for call back with this information. * Telephone Encounter - Carina Quezada - 09/24/2024 9:48 AM EDT Madina with [facility] called to follow-up on faxed received. Madina needing clarification on fax cover sheet note she received regarding clarifying lab protocol. Madina requesting osiel back to clarify at [phone] (ask for Madina) * Telephone Encounter - Alondra Reese MA - 09/23/2024 1:36 PM EDT Requesting bloodwork orders be placed and done biweekly. documented in this encounter Plan of Treatment Upcoming Encounters Date Type Department Care Team (Late st Contact Info) Description 12/05/2024 8:01 AM EDT Hospital Encounter [facility] ENDOSCOPY [address] [place] [address] Chris Orosco MD [address] [place] [phone] 12/05/2024 8:01 AM EDT - 12/05/2024 8:31 AM EDT Surgery [facility] ENDOSCOPY [address] [place] [phone] Chris Orosco MD [address] [place] [phone] EGD Scheduled Procedures Name Priority Associated Diagnoses Date/Ti ky EGD Cirrhosis of liver with ascites, unspecified hepatic cirrhosis type ([facility]) 12/05/2024 8:01 AM EDT documented as of this encounter Visit Diagnoses Not on filedocumented in this encounter Additional Health Concerns Infection Onset Date Last Indicated Resolved Time C. difficile 09/09/2024 09/09/2024 10/27/2024 8:30 AM EDT documented as of this encounter
--- OUTSIDE RECORDS SUMMARY | 2024-11-06 08:44 | XMS_ITS | Encounter Summary ---
Author Organization [facility] Address [address] [place] [address] Care Team Providers Care Airfreight Loading Supervisor Name Role Phone Enedina Mcgurie NP Primary Care Provider [phone] Source Comments This information has been disclosed [...] release of HIV test results or diagnoses. [id number] Encounter Details Date Type Department Care Team (Late st Contact Info) Description 10/22/[address] [facility] Kidney Transplant at [facility] [address] [facility] [address] [place] [address] Aaron Gonzalez MD [address] [facility] [place] [address] Social History Tobacco Use Types Packs/Day Years Used Date Smoking Tobacco: Former Cigarettes Smokeless Tobacco: Current Alcohol Use Standard Drinks/Week Comments Yes 0 (1 standard drink = 0.6 oz pure alcohol) History of alcohol abuse, reports no use in 3 week- typically endorses use as 4 glasses of wine a days Utilities Answer Date Recorded In the past 12 months has [employer], gas, oil, or water [employer] threatened to shut off services in your [...] Description 12/05/2024 8:01 AM EDT Hospital Encounter [facility] ENDOSCOPY [address] [place] [address] Chris Orosco MD [address] [place] [phone] 12/05/2024 8:01 AM EDT - 12/05/2024 8:31 AM EDT Surgery [facility] ENDOSCOPY [address] [facility] [place] [address] Chris Orosco MD [address] [place] [phone] EGD Scheduled Procedures Name Priority Associated Diagnoses [...] documented as of this encounter Care Teams Airfreight Loading Supervisor Relationship Specialty Start Date End Date Enedina Mcguire NP [address] [place] [address] PCP - General Internal Medicine 10/05/24 documented as of this encounter
--- OUTSIDE RECORDS SUMMARY | 2024-11-06 08:44 | XMS_ITS | Encounter Summary ---
Author Organization [facility] Address [facility] [place] [address] Care Team Providers Care Airborne And Air Delivery Specialist Name Role Phone Unavailable Primary Care [...] release of HIV test results or diagnoses. [id number] Reason for Visit * Reason Comments Medical Management Plan of Care Inquiry /Question Encounter Details Date Type Department Care Team (Late st Contact Info) Description 09/16/2024 Telephone [facility] Gastroenterology at [facility] [address] [place] [phone] Gerri Peterson MD [address] [place] [address] Medical Management (Plan of Care Inquiry/Question [...] Recorded In the past 12 months has [employer], gas, oil, or water company threatened to [...] Result : Platelets Ordering Physician: Drawn per [facility] Comment: This was drawn @ 10:40 am post paracentesis Physician/Provider Notified: Gerri Peterson Date: 09/16/24 Time: 1257 Orders Given: Not at time of this encounter Result Received, Documented, and Read Back by: Ingrid Galvez RN Date/Time: 09/16/2024 / 12:56 PM Patient Notified: No Date/Time: 09/16/2024 / 12:56 PM Yvonne is aware I will make Dr Peterson aware RN routed High priority Plts 09/09/24 were 45 * Telephone Encounter - Chelle Michaels MA - 09/16/2024 12:39 PM EDT Yvonne called back asking for a nurse to call to review a critical lab. Please call - [phone] * Telephone Encounter - Ingrid Galvez RN - 09/16/2024 11:48 AM EDT RN was not able to reach per secure chat, [employer], paging so RN called on cell. RN spoke to Dr Peterson on phone and to give Albumin 25% 8G/L for greater than 5 L removed. Not to remove more than 10 L. (Max 100g Grams albumin in 24 hours). Verbal order given to Yvonne as was approved per Dr Peterson * Telephone Encounter - Tamar [place] - 09/16/2024 9:58 AM EDT Yvonne from [facility] asked if advised to do Albumin replacement after paracentesis? Julien in route to appointment Yvonne can be reached at [phone] documented in this encounter Plan of Treatment Upcoming Encounters Date Type Department Care Team (Late st Contact Info) Description 12/05/2024 8:01 AM EDT Hospital Encounter [facility] ENDOSCOPY [address] [place] [phone] Chris Orosco MD [address] [place] [phone] 12/05/2024 8:01 AM EDT - 12/05/2024 8:31 AM EDT Surgery [facility] ENDOSCOPY [address] [place] [phone] Chris Orosco MD [address] [place] [phone] EGD Scheduled Procedures Name Priority Associated Diagnoses [...]
--- OUTSIDE RECORDS SUMMARY | 2024-11-06 08:44 | XMS_ITS | Encounter Summary ---
Author Organization [facility] Address [address] [place] [address] Care Team Providers Care Steeler Name Role Phone Unavailable Primary Care Provider [...] release of HIV test results or diagnoses. [id number] Health Encounter Details Date Type Department Care Team (Late st Contact Info) Description 09/24/2024 Orders Only [facility] Gastroenterology at [facility] [address] [place] [phone] Gerri Peterson MD [address] [place] [address] Cirrhosis of liver with ascites, [...] Recorded In the past 12 months has [employer], gas, oil, or water company threatened [...] Description 12/05/2024 8:01 AM EDT Hospital Encounter [facility] ENDOSCOPY [address] [place] [address] Chris Orosco MD [address] [place] [phone] 12/05/2024 8:01 AM EDT - 12/05/2024 8:31 AM EDT Surgery [facility] ENDOSCOPY [address] [place] [address] Chris Orosco MD [address] [place] [address] EGD Scheduled Orders Name Type Priority Associated [...] PM EDT) Gram Stain Result Cytospin Results: [facility] Gram Stain Result Polymorphonuclear Leukocytes Seen; [facility] Gram Stain Result No Organisms Seen; [facility] Culture Result No Growth After 5 Days [facility] Fluid ABDOMEN / Unknown 10/10/2024 1:51 PM EDT 10/10/2024 3:56 PM EDT Gerri Peterson MD MICROBIOLOGY - GENERAL ORDERABL ES Final Result Performing Organization Address City/[facility]/ZIP Co de Phone Number [facility] [address] * (ABNORMAL) Body fluid cell count (10/10/2024 1:51 PM EDT) Color, Fluid Yellow(A) Colorless, Pale Yellow 10/10/2024 5:29 PM EDT [facility] Clarity, Fluid Clear 10/10/2024 5:29 PM EDT [facility] Neutrophil %, Fluid 9 % 10/10/2024 5:29 PM EDT [facility] Lymphocytes %, Fluid 13 % 10/10/2024 5:29 PM EDT [facility] Mesothelial %, Fluid 6 % 10/10/2024 5:29 PM EDT [facility] Macrophage %, Fluid 72 % 10/10/2024 5:29 PM EDT [facility] RBC, Fluid 2,662 /uL 10/10/2024 4:41 PM EDT [facility] Total Nucleated Cells, Fluid 89 /uL 10/10/2024 4:41 PM EDT [facility] Comment:Total Nucleated Cell s represent WBCs and other nucleated cells in the fluid such as lining cells. Ascitic Fluid ABDOMEN / Unknown 1:51 PM EDT 10/10/2024 3:56 PM EDT Gerri Peterson MD BODY FLUIDS AND STOOLS ORDERABL ES Final Result Performing Organization Address City/[facility]/ZIP Co de Phone Number [facility] [address] [facility]. [address] documented in this encounter Visit Diagnoses Diagnosis Cirrhosis of liver with ascites, unspecified hepatic cirrhosis type (CMS-HCC)- Primary Cirrhosis of liver with ascites, unspecified hepatic cirrhosis type (CMS-HCC) documented in this encounter Additional Health Concerns Infection Onset Date Last Indicated Resolved Time C. difficile 09/09/2024 09/09/2024 10/27/2024 8:30 AM EDT documented as of this encounter
--- OUTSIDE RECORDS SUMMARY | 2024-11-06 08:44 | XMS_ITS | Encounter Summary ---
Author Organization [facility] Address [facility] [place] [address] Care Team Providers Care Grid Operator Name Role Phone Unavailable Primary Care [...] release of HIV test results or diagnoses. [id number] Reason for Visit * Reason Comments After Hours Call Encounter Details Date Type Department Care Team (Late st Contact Info) Description 09/02/2024 Telephone [facility] PATIENT SERVICES [address] [place] [address] Unknown, Attending Provider After Hours [...] Recorded In the past 12 months has [facility], gas, oil, or water [employer] threatened to shut off services in your [...] does not drink 09/05/2024 12:47 AM Minh Dixon RN Q3: How often do you have [...] the stressful experience? 2 09/29/2024 11:00 AM Lizteh Calixto P syD Suddenly feeling or acting [...] harm? 0 09/29/2024 11:00 AM EDT Ro Lizeth snyder PsyD Trouble falling or staying asleep? [...] Bella - 09/02/2024 8:50 PM EDT Specialty: GASTRO Patient Name: Julien Anderson Patient Date of : 1985 Relationship of Caller to Patient and Callback: ALICIA ([facility]) [phone] Patient of: DR. LINARES Nature of Call: CRITICAL LAB RESULT Accounts Payable Professional Provider Contacted: DR. VINES Time and Method of Contact:PAGED @ 8:54PM Advise Caller: If provider does not call back within 30 minutes, please call us back. ROUTE TELEPHONE NOTE - Follow Qgenda and/or Route Directly to Provider. COPY this note into [facility] chat. documented in this encounter Plan of Treatment Upcoming Encounters Date Type Department Care Team (Late st Contact Info) Description 12/05/2024 8:01 AM EDT Hospital Encounter [facility] ENDOSCOPY [address] [place] [address] Chris Orosco MD [address] [place] [phone] 12/05/2024 8:01 AM EDT - 12/05/2024 8:31 AM EDT Surgery [facility] ENDOSCOPY [address] [place] [address] Chris Orosco MD [address] [place] [address] EGD Scheduled Procedures Name Priority Associated Diagnoses Date/Ti dc EGD Cirrhosis of liver with ascites, unspecified [...]
--- OUTSIDE RECORDS SUMMARY | 2024-11-06 08:44 | XMS_ITS | Encounter Summary ---
Author Organization [facility] Address [address] [place] [address] Care Team Providers Care Rn Immunology Name Role Phone Enedina Mcguire NP Primary Care Provider [phone] Source Comments This information has been disclosed [...] release of HIV test results or diagnoses. [id number] Health Encounter Details Date Type Department Care Team (Late st Contact Info) Description 10/22/2024 Chart Note [facility] Liver Transplant at [address] [place] [phone] Mary Butler, RN UNOS VERIFICATION CHECK FORM Social History Tobacco Use Types Packs/Day Years Used Date Smoking Tobacco: Former Cigarettes Smokeless Tobacco: Current Alcohol Use Standard Drinks/Week Comments Yes 0 (1 standard drink = 0.6 oz pure alcohol) History of alcohol abuse, reports no use in 3 week- typically endorses use as 4 glasses of wine a days Utilities Answer Date Recorded In the past 12 months has [employer], [employer], oil, or water [employer] threatened to shut off services in your [...] Progress Notes * Mary Butler RN - 10/22/2024 12:37 PM EDT UNOS VERIFICATION CHECK FORM First Name sb Last Name sb Middle Initial na Date of sb SS# sb Center ID# (MRN) sb ABO x 2 sb/sb I have verified the two (2) blood type results for this candidate are the same blood type and matchthe results reported in UNet. Listing date in Epic sb And UNOS match Listing date notification sb letter match Epic and [facility]OS Transplant Consents on file sb Physical Capacity sb Working for Income sb Multidisciplinary Team documentation Initial Hepatology assessment sb paste up worker within the last year sb Dietitian within the last year sb Finance within the last year sb Pharmacy within the last year sb Initial surgery assessment sb RN coordinator EDU documentation sb Book marked labs/pertinent data (Regulatory) sb * Gladis Chisholm MA - 10/22/2024 12:37 PM EDT UNOS VERIFICATION CHECK FORM First Name nlc Last Name nlc Middle Initial N/a Date of nlc SS# nlc Center ID# (MRN) nlc ABO x 2 nlc/nlc I have verified the two (2) blood type results for this candidate are the same blood type and matchthe results reported in UNet. Listing date in Epic nlc And UNOS match Listing date notification nlc letter match Epic and UNOS Transplant Consents on file nlc Physical Capacity nlc Working for Income nlc Multidisciplinary Team documentation Initial Hepatology assessment nlc paste up worker within the last year nlc Dietitian within the last year nlc Finance within the last year nlc Pharmacy within the last year nlc Initial surgery assessment nlc RN coordinator EDU documentation nlc Book marked labs/pertinent data (Regulatory) nlc documented in this encounter Plan of Treatment Upcoming Encounters Date Type Department Care Team (Late st Contact Info) Description 12/05/2024 8:01 AM EDT Hospital Encounter [facility] ENDOSCOPY [address] [place] [address] Chris Orosco MD [address] [place] [phone] 12/05/2024 8:01 AM EDT - 12/05/2024 8:[address] [facility] ENDOSCOPY [address] [place] [phone] Chris Orosco MD [address] [place] [phone] EGD Scheduled Procedures Name Priority Associated Diagnoses Date/Ti me EGD Cirrhosis of liver with ascites, unspecified hepatic cirrhosis type ([facility]) 12/05/2024 8:01 AM EDT documented as of this encounter Visit Diagnoses Not on filedocumented in this encounter Additional Health Concerns Infection Onset Date Last Indicated Resolved Time C. difficile 09/09/2024 09/09/2024 10/27/2024 8:30 AM EDT Assessment Noted Time PHQ-9 Depression Total Score: 17 025 11:00 AM EDT documented as of this encounter Care Teams Rn Immunology Relationship Specialty Start Date End Date Enedina Mcguire NP [address] [place] [address] PCP - General Internal Medicine 10/05/24 documented as of this encounter
--- OUTSIDE RECORDS SUMMARY | 2024-11-06 08:44 | XMS_ITS | Encounter Summary ---
Author Organization [facility] Address [address] [place] [address] Care Team Providers Care Impregnator Helper Name Role Phone Unavailable Primary Care Provider [...] release of HIV test results or diagnoses. [id number] Health Encounter Details Date Type Department Care Team (Late st Contact Info) Description 09/10/2024 Telephone [facility] Liver Transplant at [address] [address] Kaylin Willard MSW Social History Tobacco Use [...] Recorded In the past 12 months has [employer], gas, oil, or water company threatened to [...] [facility] ENDOSCOPY [address] [address] Chris Orosco MD [address] [place] [phone] 12/05/2024 8:01 AM EDT - 12/05/2024 8:31 AM EDT Surgery [facility] ENDOSCOPY [address] [place] [phone] Chris Orosco MD [address] [place] [phone] EGD Scheduled Procedures Name Priority Associated Diagnoses Date/Ti me EGD Cirrhosis of liver with ascites, unspecified hepatic cirrhosis type ([facility]) 12/05/2024 8:01 AM EDT documented as of this encounter Visit Diagnoses Not on filedocumented in this encounter Additional Health Concerns Infection Onset Date Last Indicated Resolved Time C. difficile 09/09/2024 09/09/2024 10/27/2024 8:30 AM EDT documented as of this encounter
--- OUTSIDE RECORDS SUMMARY | 2024-11-06 08:45 | XMS_ITS | Encounter Summary ---
Author Organization [employer] Address [address] [place] [address] Care Team Providers Care Film Process Operator Name Role Phone Unavailable Primary Care Provider Unavailabl e Encounter Details Date Type Department Care Team (Late st Contact Info) Description 06/03/2018 Transcribed Document [facility] [address] [place] [address] ProviderEbenezer MD [address] [place] [address] Social History Tobacco Use Types [...] - Ebenezer ProviderMD - 06/03/2018 12:08 PM SCRAP DROP CRANE OPERATOR ED Assessment Entered On: 06/03/2018 14:51 EST Performed On: 06/03/2018 13:50 EST by Lizeth Almeida, JOCKEY ROOM CUSTODIAN Quick Look Assessment Level of Consciousness : Alert Affect/Behavior : Calm, Cooperative Orientation : Oriented x 4 Skin Color : Other: [place] Skin Temperature : Warm Skin Description : Dry Lizeth Almeida, RN - 06/03/2018 14:50 EST ED General-Functional Assess Communication Barrier : None Primary Language : Serbian Any Spiritual/Cultural Needs or Requests : No [...] 06/03/2018 14:50 EST Electronically signed by Gabriela [facility] Conversion Wrapper Stemmer Hand Cerner at 08/29/2022 6:34 PM CDT documented in this encounter Plan of Treatment Not on file documented as of this encounter Visit Diagnoses Not on filedocumented in this encounter
--- OUTSIDE RECORDS SUMMARY | 2024-11-06 08:45 | XMS_ITS ---
Author Organization [facility] Address [address] [place] [address] Care Team Providers Care Wind Projects Supervisor Name Role Phone Enedina Mcguire NP Primary Care Provider + [phone] Maureen Pantoja RN Unavailable Unavail able Transplant Episode Kidney Recipient [facility] [place] Organ Received: Left Kidney Transplanted on 10/27/2024 Marked as Active Follow-up on 10/27/2024 Kidney CoordinatorJosr Weber RN Phone: N/A Fax: N/A Email: N/A [place] Organ Diagnosis Organ Primary Contributory Kidney Hepatorenal Syndrome Donor Information Organ ABO Source Meets Risk Criteria HLA Match Mismatches Cross Match Left Kidney Transplanted O DCD Yes A: B: DR: Left Kidney Donor Serology Results Anti-CMV CMV IgG: Negative CMV IgM: Negative EBV IgG EBV VCA IgG: Positive Anti-HCV HCV Ab: Negative Anti-HBcAb HBC Total: Negative HBsAg HBsAg: Negative HBV DNA No results on file Anti-HIV I/II HIV Ab: Not Done HIV RNA: Negative Anti-HTLV I/II HTLV: Not Done RPR/VDRL RPR: Negative EBV IgM EBV VCA IgM: Indeterminate/Equi vocal HBsAb No results on file EBNA EBNA IgG: Positive EBNA IgM: Indeterm inate/Eq uivocal Care Team Name Role Phone Fax Email Josr Weber RN Kidney Coordinator N/A N/ A N/A Josr Weber RN Txp Post Coordinator N/A N/A N/A Flaquito Mayen MD Txp Surgeon [phone] N/A Bruno Gonzalez MD Txp Chemical Test Engineer [phone] N/A Yovanny Curran MD Referring Physician [phone] N/A Events Post-Transplant Pre-Transplant Admitted: 10/25/2024 Referred: 10/07/2024 Transplanted: 10/27/2024 Evaluation began: Discharged: 11/02/2024 Committee: 10/20/2024 Center waitlisted: 5
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
--- OUTSIDE RECORDS SUMMARY | 2024-11-06 08:45 | XMS_ITS | Encounter Summary ---
Author Organization [facility] Address [address] [place] [address] Care Team Providers Care Building Trades Instructor Name Role Phone Enedina Mcguire NP Primary Care Provider [phone] Source Comments This information has been disclosed [...] release of HIV test results or diagnoses. [id number] Encounter Details Date Type Department Care Team (Late st Contact Info) Description 10/22/2024 Telephone [facility] Liver Transplant at [address] [address] Mary Butler, RN Social History Tobacco Use [...] Recorded In the past 12 months has [employer], gas, oil, or water [employer] threatened to shut off services in your [...] encounter Miscellaneous Notes * Telephone Encounter - Mary Butler RN - 10/23/2024 6:22 AM EDT Late Entry for 10/22/24 at 1300: Phoned patient to make him aware that he is now active on the wait-list for SLK. We previously discussed in detail potential offers he may receive and he is open to Hep B and Hep C donors. Once called in patient will need ~[address] [facility]. documented in this encounter Plan of Treatment Upcoming Encounters Date Type Department Care Team (Late st Contact Info) Description 12/05/2024 8:01 AM EDT Hospital Encounter [facility] ENDOSCOPY [address] [place] [phone] Chris Orosco MD [address] [place] [phone] 12/05/2024 8:01 AM EDT - 12/05/2024 8:31 AM EDT Surgery [facility] ENDOSCOPY [address] [place] [phone] Chris Orosco MD [address] [place] [phone] EGD Scheduled Procedures Name Priority Associated Diagnoses Date/Ti me EGD Cirrhosis of liver with ascites, unspecified hepatic cirrhosis type ([facility]) 12/05/2024 8:01 AM EDT documented as of this encounter Visit Diagnoses Not on filedocumented in this encounter Additional Health Concerns Infection Onset Date Last Indicated Resolved Time C. difficile 09/09/2024 09/09/2024 10/27/2024 8:30 AM EDT Assessment Noted Time PHQ-9 Depression Total Score: 17 05/19/2 025 11:00 AM EDT documented as of this encounter Care Teams Building Trades Instructor Relationship Specialty Start Date End Date Enedina Mcguire NP [address] [place] [address] PCP - General Internal Medicine 10/05/24 documented as of this encounter
--- OUTSIDE RECORDS SUMMARY | 2024-11-06 08:45 | XMS_ITS | Encounter Summary ---
Author Organization [facility] Address [address] [place] [address] Care Team Providers Care Database Report Writer Name Role Phone Unavailable Primary Care Provider [...] release of HIV test results or diagnoses. [id number] Reason for Referral * (Routine) - New Request Specialty Diagnoses / Procedures Referred By Contac t Referred To Contact Radiology Diagnoses Cirrhosis of liver with ascites, unspecified hepatic cirrhosis type (CMS-HCC) Procedures AMB Referral to Interventional Radiology (BODY IR) Gerri Peterson MD [address] [place] [address] Phone: tel: fax: Referral ID Status Reason Start Date Expiration Date V isits Requested Visits Authorized [id number] New Request 09/23/2024 03/22/2025 10 10 Reason for Visit * Reason Comments Orders Order Clarification Request Encounter Details Date Type Department Care Team (Late st Contact Info) Description 09/22/2024 Telephone [facility] Gastroenterology at [address] [phone] Gerri Peterson MD [address] [place] [address] Orders (Order Clarification Request ) Social History [...] the past 12 months has th e [employer], [employer], oil, or water [employer] threatened to shut off services in your [...] 5:26 PM EDT RN faxed order to [phone] * Telephone Encounter - Alondra Reese MA - 09/23/2024 1:35 PM EDT Pt requesting a Standing order for parenthesis to have done 2x a week. * Telephone Encounter - Tamar Blackwood - 09/22/2024 11:22 AM EDT Madina from [facility] asked to clarify paracentesis frequency. Julien had 9 liters removed last week, 7.5 today and asked to get scheduled this Sunday. Madina can be reached at [phone] documented in this encounter Plan of Treatment Upcoming Encounters Date Type Department Care Team (Late st Contact Info) Description 12/05/2024 8:01 AM EDT Hospital Encounter [facility] ENDOSCOPY [address] [place] [address] Chris Orosco MD [address] [place] [address] 12/05/2024 8:01 AM EDT - 12/05/2024 8:31 AM EDT Surgery [facility] ENDOSCOPY [address] [place] [address] Chris Orosco MD [address] [place] [phone] EGD Scheduled Orders Name Type Priority Associated [...]
--- OUTSIDE RECORDS SUMMARY | 2024-11-06 08:45 | XMS_ITS | Clinical Summary ---
Author Organization [employer] Address [address] [place] [address] Care Team Providers Care Head Librarian Name Role Phone Unavailable Primary Care Provider [...]
--- OUTSIDE RECORDS SUMMARY | 2024-11-06 08:45 | XMS_ITS | Encounter Summary ---
Author Organization [facility] Address [address] [place] [address] Care Team Providers Care Electrical Tests Supervisor Name Role Phone Enedina Mcguire NP Primary Care Provider [phone] Source Comments This information has been disclosed [...] release of HIV test results or diagnoses. [id number] Encounter Details Date Type Department Care Team (Late st Contact Info) Description 10/22/[address] [facility] Kidney Transplant at [address] [place] [phone] Gladis Rainey RN Received most recent eGFR from today with result of 21. Pt meets CKD Social History Tobacco Use Types Packs/Day Years Used Date Smoking Tobacco: Former Cigarettes Smokeless Tobacco: Current Alcohol Use Standard Drinks/Week Comments Yes 0 (1 standard drink = 0.6 oz pure alcohol) History of alcohol abuse, reports no use in 3 week- typically endorses use as 4 glasses of wine a days Utilities Answer Date Recorded In the past 12 months has [employer], gas, oil, or water [employer] threatened to shut off services in your [...] as of this encounter Progress Notes * Gladis Rainey RN - 10/22/2024 1:51 PM EDT Received most recent eGFR from today with result of 21. Pt meets CKD criteria for SLK. Chart reviewed with Dr. Gonzalez. Patient was listed active on the kidney transplant wait list. Letter sent to patient and/or dialysis center and referring physician. Reminder of [facility] web site to follow and review outcomes data. * Gladis Rainey RN - 10/22/2024 1:51 PM EDT [facility] VERIFICATION CHECK FORM Julien Anderson [id number] initials or answer yes or no next to each item to note you have verified the information for listing on this patient in [facility]. First Name nh Last Name mi Middle Initial N/a Date of mi SS# mi Center ID# (MRN) mi ABO x 2 mi / mi I have verified the two (2) blood type results for this candidate are the same blood type and matchthe results reported in [facility]. 2728 date [facility] N/a 2728 date [facility] N/a If patient is not on Dialysis Verify date of GFR and GFR 19 on 08/13/24 *Meets CKD Criteria for SLK listing today with today eGFR 21 on 10/22/24 *Kidney checked in Liver registration as additional organ Listing date in [facility] OS match nh Listing date notification letter match [facility] Updated consent on file [x] Yes [] No If no, consent sent to patient. 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 First Name MW Last Name MW Middle Initial N/A Date of MW SS# MW Center ID# (MRN) MW ABO x 2 MW / MW I have verified the two (2) blood type results for this candidate are the same blood type and matchthe results reported in [facility]. 2727 date [facility] N/A 2727 date [facility] N/A If patient is not on Dialysis Verify date of GFR and GFR 19 on 08/13/24 Verified that liver was checked on kidney registration Verified that kidney was checked on liver registration Listing date in [facility] match MW Listing date notification letter match [facility] and OS Updated consent on file [x] Yes [] No If no, consent sent to patient. [x] Yes [] No KPDI > 85% acceptance consent on file [] Yes [x] No # of Solid organ transplants: 0 MW And date of transplant: N/A Diabetes: [] Type 1 [] Type 2 [] Mixed [x] NOT Diabetic Yes or No (will accept a HBcAB or HCV donor) HBcAB [x] Yes [] No HCV [x] Yes [] No Accept HYPERTENSION donor: [x] Yes [] No Accept Diabetic donor: [x] Yes [] No Accept DCD donor: [x] Yes [] No Multidisciplinary Team documentation Nephrology within the last year MW grain elevator worker within the last year MW Dietitian within the last year MW Finance within the last year MW Pharmacy within the last year MW Initial surgery assessment RN coordinator documentation MW documented in this encounter Plan of Treatment Upcoming Encounters Date Type Department Care Team (Late st Contact Info) Description 12/05/2024 8:01 AM EDT Hospital Encounter [facility] ENDOSCOPY [address] [place] [address] Chris Orosco MD [address] [place] [phone] 12/05/2024 8:01 AM EDT - 12/05/2024 8:31 AM EDT Surgery [facility] ENDOSCOPY [address] [place] [address] Chris Orosco MD [address] [place] [phone] EGD Scheduled Procedures Name Priority Associated Diagnoses [...] as of this encounter Care Teams Electrical Tests Supervisor Relationship Specialty Start Date End Date Enedina Mcguire NP [address] [place] [address] PCP - General Internal Medicine 10/05/24 documented as of this encounter
--- OUTSIDE RECORDS SUMMARY | 2024-11-06 08:45 | XMS_ITS | Encounter Summary ---
Author Organization [facility] Address [address] [place] [address] Care Team Providers Care Development Expert Name Role Phone Enedina Mcguire NP Primary Care Provider [phone] Source Comments This information has been disclosed [...] release of HIV test results or diagnoses. [id number] Encounter Details Date Type Department Care Team (Late st Contact Info) Description 10/22/2024 Chart Note [facility] Liver Transplant at [address] [place] [phone] Mary Butler, RN Social History Tobacco Use [...] Recorded In the past 12 months has [employer], gas, oil, or water [employer] threatened to shut off services in [...] Description 12/05/2024 8:01 AM EDT Hospital Encounter [facility] ENDOSCOPY [address] [place] [phone] Chris Orosco MD [address] [place] [phone] 12/05/2024 8:01 AM EDT - 12/05/2024 8:31 AM EDT Surgery [facility] ENDOSCOPY [address] [place] [phone] Chris Orosco MD [address] [place] [phone] EGD Scheduled Procedures Name Priority Associated Diagnoses Date/Ti me EGD Cirrhosis of liver with ascites, unspecified hepatic cirrhosis type ([facility]) 12/05/2024 8:01 AM EDT documented as of this encounter Procedures Procedure Name Priority Date/Time Associated Diagnosis Comments RENAL FUNCTION PANEL W/O EGFR Routine 10/22/2024 HEPATIC FUNCTION PANEL Routine 10/21/2024 PROTIME-INR Routine 10/21/2024 RENAL FUNCTION PANEL W/O EGFR Routine 10/21/2024 documented in this encounter Results * (ABNORMAL) Renal Function Panel w/o EGFR (10/22/2024) Glucose 107 mg/dL BUN 62(A) 4 - 21 mg/dL CO2 18 13 - 22 mmol/L Creatinine 3.30(A) 0.6 - 1.3 mg/dL Potassium 3.7 3.4 - 5.3 mmol/L Sodium 133(A) 137 - 147 mmol/L Chloride 106 99 - 108 mmol/L Phosphorus 5.8(A) 2.5 - 4.9 mg/dL Calcium 9 8.7 - 10.7 mg/dL EGFR 21 mg/dL Albumin 3.2(A) 3.5 - 5.0 g/dL Blood Result [facility] Provider MD LAB BLOOD ORDERABLES Denisse l Result * (ABNORMAL) Renal Function Panel w/o EGFR (10/21/2024) Glucose 116 mg/dL BUN 64(A) 4 - 21 mg/dL CO2 16 13 - 22 mmol/L Creatinine 3(A) 0.6 - 1.3 mg/dL Potassium 3.8 3.4 - 5.3 mmol/L Sodium 132(A) 137 - 147 mmol/L Chloride 105 99 - 108 mmol/L Calcium 8.9 8.7 - 10.7 mg/dL EGFR 23 mg/dL Albumin 3.1(A) 3.5 - 5.0 g/dL Blood Result [facility] LAB BLOOD ORDERABLES Denisse l Result * (ABNORMAL) Protime-INR (10/21/2024) INR 1.52(A) 0.9 - 1.1 Protime 16.4 Plasma Result [facility] LAB BLOOD ORDERABLES Denisse l Result * (ABNORMAL) Hepatic Function Panel (10/21/2024) Bilirubin, Direct 5.4 Alkaline Phosphatase 190 U/L ALT 32 U/L AST 57 U/L Total Bilirubin 7.3(A) 0.1 - 1.4 mg/dL Total Protein 5.4(A) 6.4 - 8.2 g/dL Plasma Result [facility] LAB BLOOD ORDERABLES Denisse l Result documented in this encounter Visit Diagnoses Not on filedocumented in this encounter Additional Health Concerns Infection Onset Date Last Indicated Resolved Time C. difficile 09/09/2024 09/09/2024 10/27/2024 8:30 AM EDT Assessment Noted Time PHQ-9 Depression Total Score: 17 025 11:00 AM EDT documented as of this encounter Care Teams Development Expert Relationship Specialty Start Date End Date Enedina Mcguire NP [address] [place] [address] PCP - General Internal Medicine 10/05/24 documented as of this encounter
--- OUTSIDE RECORDS SUMMARY | 2024-11-06 08:45 | XMS_ITS ---
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 difficile diarrhea Donor Information Organ ABO Source Meets Risk Criteria HLA Match Mismatches Cross Match Liver Transplanted O DCD Yes A: B: DR: Liver Donor Serology Results Anti-CMV CMV IgG: Negative [...] Care Team Name Role Phone Fax Email Maureen Pantoja RN Liver Coordinator N/A N/A N/A Chris Orosco MD Referring Physician [phone] N/A Maureen Pantoja, RN Txp Post Coordinator N/A N/A N/A NUBIA Barros Txp Business Controller N/A N/A N/A Harvey Domínguez III, MD Txp Surgeon [phone] N/A Mary Butler, ЮЛИЯ Txp Pre Coordinator N/A N/A N/A Events Post-Transplant Pre-Transplant Admitted: 10/25/2024 Referred: 08/13/2024 Transplanted: 10/26/2024 Evaluation began: 5 Discharged: 11/02/2024 Committee: 10/14/2024 Center waitlisted: 5 Appointments (10/06/2024 - 12/06/2024) When With Visit Type Description 11/04/2024 Txp Jose Hanna Established Patient Kidney transplant recipient (Primary Dx); Diarrhea of presumed infectious origin; Hypomagnesemia; Hypervolemia, unspecified hypervolemia type; Liver transplant recipient (CMS-HCC); Other hypervolemia; Hyperparathyroidism (CMS-HCC); Nausea and vomiting, unspecified vomiting type 11/04/2024 Txp Ebony Watkins Established Patient Li jemma transplant recipient (CMS-HCC) (Primary Dx); Alcoholic cirrhosis of liver with ascites (CMS-HCC); Kidney transplant recipient; Acute kidney injury superimposed on CKD (CMS-HCC); CKD (chronic kidney disease) stage 4, GFR 15-29 ml/min (CMS-HCC); Immunosuppressive management encounter following liver transplant (CMS-HCC); Abdominal pain, unspecified abdominal location
--- OUTSIDE RECORDS SUMMARY | 2024-11-06 08:45 | XMS_ITS | Encounter Summary ---
Author Organization [employer] Address [address] [place] [address] Care Team Providers Care Warehouse Laborer Name Role Phone Unavailable Primary Care Provider Unavailabl e Encounter Details Date Type Department Care Team (Late st Contact Info) Description 06/03/2018 Transcribed Document [facility] Family Medicine [address] [place] [address] ProviderEbenezer MD [address] [place] [address] Social History Tobacco Use Types [...] - Historical ProviderMD - 06/03/2018 3:04 PM AIRCRAFT RIGGING AND CONTROLS MECHANIC [address] [place] [address] PERSON INFORMATION Name JULIEN ZELAYA Age 33 Years 1985 Sex Male Language Italian PCP SALLY EVERETT (REF) T Marital Status Single Med Service Emergency Medicine Acct# Arrival 06/03/2018 12:08:00 Visit Reason Finger laceration; CUT FINGERS Acuity 3 - Urgent LOS 000 02:56 Depart Date: 06/03/18 03:04 PM Address: [address] [place] [phone] Comment: PROVIDER INFORMATION Provider Role Assigned Unassigned Lizeth Almeida, COMPRESSOR TECHNICIAN Nurse 06/03/2018 12:39:09 DOMINIQUE BREWER PA-C ED [...] PURI # [address]C [address] [place], [employer] [id number] [employer] ([place] Within 2 to 3 days Comment: documented in this encounter Plan of Treatment Not on file documented as of this encounter Visit Diagnoses Not on filedocumented in this encounter
--- OUTSIDE RECORDS SUMMARY | 2024-11-06 08:45 | XMS_ITS | Encounter Summary ---
Author Organization [employer] Address [address] [place] [address] Care Team Providers Care Supervisor Cigar Processing Name Role Phone Unavailable Primary Care Provider Carmen jimenez Encounter Details Date Type Department Care Team (Late st Contact Info) Description 06/03/2018 Transcribed Document [facility] [place] [facility] [place] [address] ProviderEbenezer MD [address] [place] [address] Social History Tobacco Use Types [...] - Ebenezer ProviderMD - 06/03/2018 3:04 PM SHOW OPERATIONS SUPERVISOR [address] [place] [address] Patient Information Name: JULIEN ZELAYA [...] [address] [place] [address] [employer] (1) Within 2 to 3 days Patient [...] off of the skin. General Instructions??? Take ygeh-lne-avppfve and prescription medicines only as told by [...] 04/30/2006 Document Revised: 09/29/2016 Document Reviewed: 04/26/2015 [employer] Patient Education ? 2017 [employer] Allergies: No Known Medication Allergies Medication [...] verify that JULIEN ZELAYA was seen at [facility] Emergency Department on ,06/03/2018 15:04:17. This is [...] Assistance with quitting is available by contacting 1-898-LDHN-NOW. This is a free resource providing counseling, [...] Electronic Communications Privacy Act 18 U.S.C. ???Sections 0644-3037,?? and contain information intended for the specified [...] sure to sign up for the My [facility] patient portal, which gives you 04/12 access to your medical information ??? including these discharge instructions ??? using your computer, smartphone, or tablet. Just go to [employer] to get started. Questions? Call . Acknowledgment [...] Yes____ No____ Nurse Providing Instructions: Emergency Physician: documented in this encounter Plan of Treatment Not on file documented as of this encounter Visit Diagnoses Not on filedocumented in this encounter
--- OUTSIDE RECORDS SUMMARY | 2024-11-06 08:45 | XMS_ITS | Encounter Summary ---
Author Organization [facility] Address [address] [place] [address] Care Team Providers Care Funeral Arrangement Director Name Role Phone Enedina Mcguire NP Primary Care Provider [phone] Source Comments This information has been disclosed [...] release of HIV test results or diagnoses. [id number] Health Encounter Details Date Type Department Care Team (Late st Contact Info) Description 10/25/2024 Telephone [facility] Liver Transplant at [address] [address] Krissy Crowell RN Social History Tobacco Use Types Packs/Day Years Used Date Smoking Tobacco: Former Cigarettes Smokeless Tobacco: Current Alcohol Use Standard Drinks/Week Comments Yes 0 (1 standard drink = 0.6 oz pure alcohol) History of alcohol abuse, reports no use in 3 week- typically endorses use as 4 glasses of wine a days Utilities Answer Date Recorded In the past 12 months has [employer], gas, oil, or water [employer] threatened to shut off services in your [...] Encounter - Krissy Crowell RN - 10/25/2024 11:21 AM EDT Received notification for potential Liver Kidney transplant for Julien Anderson, 1985. Donor ID and Match run verified via email with Dr. Domínguez. Offer History Type: Primary Local back up: N Open Offer: N Waivers: N Type Given: N/A (Anatomical, Biopsy, Crossmatch, Cold time, Pump, Full) Time granted: N/A Who granted: N/A OPO: CHACHA OPO Contact: Kiet [phone] Recent illnesses (surgeon aware) [x] Yes [] No Recent blood transfusions [x] Yes [] No Anticoagulation [] Yes [x] No Recent hospitalizations discharged last Sunday [x] Yes [] No Last meal Date/Time: NPO, instructed to be NPO 10/25/2024 after 1400 [x] Yes [] No Pt instructed for admission Location: TBD, delayed call in Estimated arrival time: [x] Yes [] No Significant other/caregiver will accompany the patient and will be available to the medical/surgical team as needed for updates/progress during surgery. [x] Yes [] No If patient is in-house, patient and or family member advised N/A [] Yes [] No KIDNEY Dialysis [] Home Hemo [] Hemo []PD [x] Not Applicable Last session: Date: Ran hours: PD Patients: Do not need to bring equipment or solution to [facility]. They will get supplies from dialysis unit if needed. LIVER HCC: Confirmed with the OR that the patient has HCC and that the patient did NOT have a SIRT in thelast 30 days. The patient's significant other/caregiver will accompany the patient and will be available to the medical/surgical team as needed for updates/progress during surgery. [x] Not Applicable Transplant outcomes can be viewed on the SRTR website: www.srtr.org Discuss update to the Informed consent for evaluation: Organ donor risk factors that could affect the success of the Liver Kidney transplant or your health, including, but not limited to, the donor's history, condition or age of the organs used, or the patient's potential risk of clive the human immunodeficiency virus (HIV), hepatitis B virus (HBV), hepatitis C virus (HCV) and other infectious diseases if the disease cannot be detected at the time of donation. If the donor is infected with Malaria, an infection the donor could have been exposed to, or has cancer, it may not be detected at the time of organ donation. A complete history of the organ donor isobtained from family or friends to identify any cancers, infections, or behavior(s) that may put the organ donor at risk for these infections. Notifications: Department Phone Comments Time/Name Capacity Management [phone] Notified of patient's pending TXP ORGANS: Liver Kidney Time: Spoke to: OR [phone] OR scheduled for: per Dr. Domínguez Recipient in the OR time 10/25/2024 @ 2200 Acute donor Risk (according to OPTN policy) YES (HCV, HBV, HIV, COVID) Notified Donor is DCD Time: 1145, spoke to Faraz OR hot car operator: Gladys RAMIREZ ORGAN Time: yes 1155 BLOOD BANK [phone] For Liver and Heart only Spoke to Irving 1212 Nursing Research And Development Tester [phone] For delayed call in [facility] at 1158 PACU or Sameday [phone] Delayed call in: If recipient OR is 2 hrs or less from admission, call PACU/Sameday (basedon where nursing supervisor plastering assigns patient) Abdominal Transplant 8CCP [phone] Transfer of care reported for abdominal txp Notified of dialysis type and last session if applicable Time: 8CCP hot car operator: SICU [phone] Notify about abdominal txp admissions Time: 1215 SICU hot car operator: Aleks Transplant Surgery Resident/PA QGenda Time: 1219 Spoke to: Dr. Corbett Transplant Surgery Fellow QGenda Time: 1200 Spoke to: Sveta Mojica MD Transplant Research Team [phone] Time: 1218 Spoke to: Macey If applicable, Dialysis Unit EMR Time: Spoke to: Pharmacy IV Room [phone] Liver Only Contact pharmacy to alert that HBIG will be needed when all the following are present: Donor: *HBsAg negative *HBV DNA/KIANA negative Recipient: *HBsAg positive *HBV DNA is detectable on most recent check Time: Spoke to: Heart Transplant CVICU [phone] Transfer of care reported for heart txp Time: CVICU hot car operator: Email notification to Transplant Team(s) and OR hot car operator. [Send the following information below to the transplant team via email:] Received notification for potential Liver Kidney transplant for Julien Anderson, 1985. Recipient Info: Julien Anderson 1985 ABO: O CMV: Positive EBV: Negative HepBsAb: Reactive Referring MD: Dr. Chris Orosco. Surgeon: Dr. Domínguez Candidate ETA: TBD, Delayed call in OR time and date: 10/25/2024 @ 2200 CRRT needed in OR: No Venoveno bypass: No Donor info: Donor ID: [id number] Match ID: [id number] Anti-HBc: Negative HBV KIANA: Negative HBsAg: Negative HBsAb: Not Done Anti-HCV: Negative HCV KIANA: Negative Anti-HIV I/II: Not Done HIV Ag/Ab Combo: Negative HIV KIANA: Negative Anti-HTLV I/II: Not Done HTLV KIANA: Not Done Anti-CMV: Negative Syphilis: Negative EBV (VCA) (IgG): Positive EBV (VCA) (IgM): Indeterminate/Equivocal EBNA: Not Done Toxoplasma (IgG): Negative COVID: Negative ABO: O OPO: Remote Open offer: No Open offer with waivers (anatomy, pump, biopsy, cold time, crossmatch, full): No Backup offer : No Acute HIV/HBV/HCV risk: Yes Kidneys coming on pump: Yes Liver being pumped: No LIVERGuard being used: Yes Patient educated on the risk of transmission of acute HIV, HBV or HCV based on recent social, incarceration or unknown history within the past 30 days. All donors are KIANA tested for HIV, HBV, HCV, and post-transplant patient will undergo KIANA testing for HIV, HBV, and HCV. If transmission occurs effective therapies will be prescribed as indicated. documented in this encounter Plan of Treatment Upcoming Encounters Date Type Department Care Team (Late st Contact Info) Description 12/05/2024 8:01 AM EDT Hospital Encounter [facility] ENDOSCOPY [address] [place] [address] Chris Orosco MD [address] [place] [phone] 12/05/2024 8:01 AM EDT - 12/05/2024 8:31 AM EDT Surgery [facility] ENDOSCOPY [address] [place] [phone] Chris Orosco MD [address] [place] [phone] EGD Scheduled Procedures Name Priority Associated Diagnoses [...] documented as of this encounter Care Teams Funeral Arrangement Director Relationship Specialty Start Date End Date Enedina Mcguire NP [address] [place] [address] PCP - General Internal Medicine 10/05/24 documented as of this encounter
--- OUTSIDE RECORDS SUMMARY | 2024-11-06 08:45 | XMS_ITS | Encounter Summary ---
Author Organization [facility] Address [address] [place] [address] Care Team Providers Care Casing Sewer Name Role Phone Enedina Mcguire NP Primary Care Provider [phone] Source Comments This information has been disclosed [...] release of HIV test results or diagnoses. [id number] Health Encounter Details Date Type Department Care Team (Late st Contact Info) Description 10/22/2024 Telephone [facility] Psych[facility]ry Transplant at [facility] [address] [facility] [address] [place] [address] Lizeth Warren PsyD [address] [facility] [place] [address] [place] [address] Social History Tobacco Use Types Packs/Day Years Used Date Smoking Tobacco: Former Cigarettes Smokeless Tobacco: Current Alcohol Use Standard Drinks/Week Comments Yes 0 (1 standard drink = 0.6 oz pure alcohol) History of alcohol abuse, reports no use in 3 week- typically endorses use as 4 glasses of wine a days Utilities Answer Date Recorded In the past 12 months has [employer], gas, oil, or water [employer] threatened to shut off services in your [...] encounter Miscellaneous Notes * Telephone Encounter - Lizeth Warren PsyD - 10/22/2024 1:25 PM EDT Called pt on 10/21/2024 to broach f/up psych appts. Went to voicemail. Left vm referencing Friend Trusted message with availability times listed. Encouraged patient to response with preferred slot. documented in this encounter Plan of Treatment Upcoming Encounters Date Type Department Care Team (Late st Contact Info) Description 12/05/2024 8:01 AM EDT Hospital Encounter [facility] ENDOSCOPY [address] [place] [address] Chris Orosco MD [address] [place] [phone] 12/05/2024 8:01 AM EDT - 12/05/2024 8:31 AM EDT Surgery [facility] ENDOSCOPY [address] [place] [address] Chris Orosco MD [address] [place] [phone] EGD Scheduled Procedures Name Priority Associated Diagnoses [...] documented as of this encounter Care Teams Casing Sewer Relationship Specialty Start Date End Date Enedina Mcguire NP [address] [place] [address] PCP - General Internal Medicine 10/05/24 documented as of this encounter
--- OUTSIDE RECORDS SUMMARY | 2024-11-06 08:45 | XMS_ITS | Encounter Summary ---
Author Organization [facility] Address [address] [place] [address] Care Team Providers Care Assistant Tennis Professional Name Role Phone Unavailable Primary Care Provider [...] release of HIV test results or diagnoses. [id number] Health Encounter Details Date Type Department Care Team (Late st Contact Info) Description 09/17/2024 Abstract [facility] [place] [facility] [address] [place] [address] Gerri Peterson MD [address] [place] [address] Social History Tobacco Use Types Packs/Day Years Used Date Smoking Tobacco: Former Cigarettes Smokeless Tobacco: Current Alcohol Use Standard Drinks/Week Comments Yes 0 (1 standard drink = 0.6 oz pure alcohol) History of alcohol abuse, reports no use in 3 week- typically endorses use as 4 glasses of wine a days Utilities Answer Date Recorded In the past 12 months has [facility] [employer], gas, oil, or water [employer] threatened to shut off services in your [...] Hospital Encounter [facility] ENDOSCOPY [address] [place] [address] Chris Orosco MD [address] [place] [phone] 12/05/2024 8:01 AM EDT - 12/05/2024 8:31 AM EDT Surgery [facility] ENDOSCOPY [address] [place] [address] Chris Orosco MD [address] [place] [phone] EGD Scheduled Procedures Name Priority Associated Diagnoses [...] 12.3(A) 7.5 - 11.5 fL Whole Blood Gerri Peterson MD LAB BLOOD ORDERABLES Final Resu lt * Glucose, random (09/16/2024 12:20 PM EDT) Pathologist [facility] Glucose 97 60 - 200 mg/dL Plasma Result [facility] Gerri Peterson MD LAB BLOOD ORDERABLES Final Resu lt * (ABNORMAL) Hepatic function panel (09/16/2024 12:20 PM EDT) Alkaline Phosphatase 144 U/L ALT 40 U/L AST 76 U/L Total Bilirubin 19.8(A) 0.1 - 1.4 mg/dL Protein, Total 6.3 Albumin 3.4(A) 3.5 - 5.0 g/dL Blood Gerri Peterson MD LAB BLOOD ORDERABLES Final Resu lt * (ABNORMAL) Renal Function Panel w/o EGFR (09/16/2024 12:20 PM EDT) Creatinine 2.30 BUN 31(A) 4 - 21 mg/dL Potassium 3.3(A) 3.4 - 5.3 mmol/L Sodium 136(A) 137 - 147 mmol/L Chloride 110(A) 99 - 108 mmol/L Calcium 9.3 8.7 - 10.7 mg/dL Blood Result [facility] Gerri Peterson MD LAB BLOOD ORDERABLES Final Resu lt * Comprehensive metabolic panel (09/16/2024 12:20 PM EDT) CO2 15 13 - 22 mmol/L Plasma Result [facility] Gerri Peterson MD LAB BLOOD ORDERABLES Final Resu lt * (ABNORMAL) Protime-INR (09/16/2024 12:20 PM EDT) Pathologist [facility] INR 1.89(A) 0.9 - 1.1 Protime 19.9(A) 10.0 - 13.8 seconds Plasma Result [facility] Gerri Peterson MD LAB BLOOD ORDERABLES Final Resu lt * (ABNORMAL) CBC (09/16/2024 12:20 PM EDT) Red Blood Cells: 2.52 Hemoglobin 9.1(A) 13.5 - 17.5 g/dL Hematocrit 25.8(A) 41 - 53 % MCV 102.4 82.0 - 108.0 fL WBC 9.9 10^3/mL Whole Blood Result [facility] Gerri Peterson MD LAB BLOOD ORDERABLES Final Resu lt * CBC and differential (09/16/2024 12:20 PM EDT) Neutrophils Absolute 8.4 / L Blood Result [facility] Gerri Peterson MD LAB BLOOD ORDERABLES [...]
--- OUTSIDE RECORDS SUMMARY | 2024-11-06 08:45 | XMS_ITS | Encounter Summary ---
Author Organization [facility] Address [address] [place] [address] Care Team Providers Care Cane Pusher Name Role Phone Enedina Mcguire NP Primary Care Provider [phone] Source Comments This information has been disclosed [...] release of HIV test results or diagnoses. [id number] Health Encounter Details Date Type Department Care Team (Late st Contact Info) Description 10/22/2024 Chart Note [facility] Liver Transplant at [address] [place] [phone] Faraz Carballo RN 2nd ABO verified for [employer] listing at the request of JOSE G Butler. Social History Tobacco Use Types Packs/Day Years Used Date Smoking Tobacco: Former Cigarettes Smokeless Tobacco: Current Alcohol Use Standard Drinks/Week Comments Yes 0 (1 standard drink = 0.6 oz pure alcohol) History of alcohol abuse, reports no use in 3 week- typically endorses use as 4 glasses of wine a days Utilities Answer Date Recorded In the past 12 months has [employer], gas, oil, or water [employer] threatened to shut off services in [...] as of this encounter Progress Notes * Faraz Carballo RN - 10/22/2024 1:33 PM EDT 2nd ABO verified for [employer] listing at the request of JOSE G Butler. documented in this encounter Plan of Treatment Upcoming Encounters Date Type Department Care Team (Late st Contact Info) Description 12/05/2024 8:01 AM EDT Hospital Encounter [facility] ENDOSCOPY [address] [place] [address] Chris Orosco MD [address] [place] [phone] 12/05/2024 8:01 AM EDT - 12/05/2024 8:31 AM EDT Surgery [facility] ENDOSCOPY [address] [place] [address] Chris Orosco MD [address] [place] [phone] EGD Scheduled Procedures Name Priority Associated Diagnoses [...] documented as of this encounter Care Teams Cane Pusher Relationship Specialty Start Date End Date Enedina Mcguire NP [address] [place] [address] PCP - General Internal Medicine 10/05/24 documented as of this encounter
--- OUTSIDE RECORDS SUMMARY | 2024-11-06 08:45 | XMS_ITS | Encounter Summary ---
Author Organization [email or web address] Address [address] [place] [address] Care Team Providers Care Pupil Personnel Services Director Name Role Phone Unavailable Primary Care Provider Unavailabl e Encounter Details Date Type Department Care Team (Late st Contact Info) Description 06/03/2018 Transcribed Document [facility] Family Medicine [address] [place] [address] ProviderEbenezer MD [address] [place] [address] Social History Tobacco Use Types [...] - Ebenezer ProviderMD - 06/03/2018 3:03 PM GLASS DECORATOR ED Discharge Entered On: 06/03/2018 15:03 EST Performed On: 06/03/2018 15:03 EST by Lizeth Almeida, [employer] reseller Process Patient Disposition : Discharge Personal Belongings [...] 06/03/2018 15:03 EST Electronically signed by Gabriela [facility] Conversion Fountain Vending Mechanic Cerner at 08/29/2022 6:35 PM CDT documented in this encounter Plan of Treatment Not on file documented as of this encounter Visit Diagnoses Not on filedocumented in this encounter
--- OUTSIDE RECORDS SUMMARY | 2024-11-06 08:45 | XMS_ITS | Encounter Summary ---
Author Organization [employer] Address [address] [place] [address] Care Team Providers Care Log Loader Helper Name Role Phone Unavailable Primary Care Provider Unavailabl e Encounter Details Date Type Department Care Team (Late st Contact Info) Description 06/03/2018 Transcribed Document [facility] Family Medicine [address] [place] [address] ProviderEbenezer MD [address] [place], [place] [id number] Social History Tobacco Use Types Packs/Day Years [...] - Historical ProviderMD - 06/03/2018 2:24 PM PEST MANAGEMENT SUPERVISOR Electronically signed by Gabriela [facility] Conversion Permaculture Designer Cerner at 08/29/2022 6:41 PM CDT documented in this encounter Plan of Treatment Not on file documented as of this encounter Visit Diagnoses Not on filedocumented in this encounter
--- OUTSIDE RECORDS SUMMARY | 2024-11-06 08:45 | XMS_ITS | Referral Summary ---
Author Organization [employer] Address [address] [place] [address] Care Team Providers Care Foreign Exchange Clerk Name Role Phone Unavailable Primary Care Provider [...]
--- OUTSIDE RECORDS SUMMARY | 2024-11-06 08:45 | XMS_ITS | Encounter Summary ---
Author Organization [employer] Address [address] [place] [address] Care Team Providers Care Bead Filler Name Role Phone Unavailable Primary Care Provider Unavailabl e Encounter Details Date Type Department Care Team (Late st Contact Info) Description 06/03/2018 Transcribed Document [facility] [place] [address] ProviderEbenezer MD [address] [place] [address] Social History Tobacco Use Types [...] - Historical ProviderMD - 06/03/2018 12:08 PM TRIMMER MACHINE OPERATOR ED Triage Entered On: 06/03/2018 12:17 EST Performed On: 06/03/2018 12:12 EST by KANU VELEZ RN ED Triage Across the Room Triage Date/Time : 06/03/2018 12:12 EST Chief Complaint : lacerations to rt index and left middle finger s/p picking up a glass that shattered guest 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 lacerations noted with bleeding controlled KANU VELEZ RN - 06/03/2018 12:12 EST DCP GENERIC CODE Tracking Acuity : 3 - Urgent Tracking Group : [facility] [place] KANU VELEZ RN - 06/03/2018 [...] 12:17:41 EST) Problems(Active) HTN (hypertension) (SNOMED CT :6997697516 ) Name of Problem: HTN (hypertension) ; Recorder: KANU VELEZ RN; Confirmation: Confirmed ; Classification: Medical ; Code: [id number] ; Contributor System: [employer] ; Last Updated: 06/03/2018 12:14 EST ; Life Cycle Date: 06/03/2018 ; Life Cycle Status: Active ; Vocabulary: SNOMED CT Diagnoses(Active) Finger laceration Date: 06/03/2018 ; Diagnosis Type: Reason For Visit ; Confirmation: Complaint of ; Clinical Dx: Finger laceration ; Classification: Medical ; Clinical Service: Emergency medicine ; Code: PNED ; Probability: 0 ; Diagnosis Code: [id number] ED Height and Weight Height Source : Stated Height Entry Format : [place] Height, Feet : 6 ft(Converted to: 183 cm, 72 Inch) Height, Inches : 4 Inch(Converted to: 0 ft 4 Inch, 10.16 cm) Clinical Height : 193.04 cm Weight Source, ED : Standing scale Weight Entry Format : [place] Weight, Pounds : 265 lb Clinical Dosing Weight : 120.45 kg Body Surface Area (BSA) : 2.5 m2 Body Mass Index : 32.3 kg/m2 (HI) [place] Body Weight (IBW) : 85.74 kg KANU [...]
--- OUTSIDE RECORDS SUMMARY | 2024-11-06 08:45 | XMS_ITS | Encounter Summary ---
Author Organization [facility] Address [address] [place] [address] Care Team Providers Care Administrative Executive Name Role Phone Unavailable Primary Care Provider [...] release of HIV test results or diagnoses. [id number] Health Encounter Details Date Type Department Care Team (Late st Contact Info) Description 09/17/2024 Telephone [facility] Liver Transplant at [address] [address] Kaylin Willard MSW Social History Tobacco Use [...] Recorded In the past 12 months has [employer], gas, oil, or water company threatened to [...] Description 12/05/2024 8:01 AM EDT Hospital Encounter [facility] ENDOSCOPY [address] [place] [address] Chris Orosco MD [address] [place] [phone] 12/05/2024 8:01 AM EDT - 12/05/2024 8:31 AM EDT Surgery [facility] ENDOSCOPY [address] [place] [phone] Chris Orosco MD [address] [place] [phone] EGD Scheduled Procedures Name Priority Associated Diagnoses Date/Ti me EGD Cirrhosis of liver with ascites, unspecified hepatic cirrhosis type ([facility]) 12/05/2024 8:01 AM EDT documented as of this encounter Visit Diagnoses Not on filedocumented in this encounter Additional Health Concerns Infection Onset Date Last Indicated Resolved Time C. difficile 09/09/2024 09/09/2024 10/27/2024 8:30 AM EDT documented as of this encounter
--- OUTSIDE RECORDS SUMMARY | 2024-11-06 08:45 | XMS_ITS | Encounter Summary ---
Author Organization [facility] Address [address] [place] [id number] Care Team Providers Care Typing Checker Name Role Phone Unavailable Primary Care [...] release of HIV test results or diagnoses. [id number] Health Encounter Details Date Type Department Care Team (Late st Contact Info) Description 09/17/2024 Telephone [facility] Liver Transplant at [address] [phone] Kaylin Willard MSW Social History Tobacco Use [...] Recorded In the past 12 months has [employer], gas, oil, or water company threatened to [...] Description 12/05/2024 8:01 AM EDT Hospital Encounter [facility] ENDOSCOPY [address] [place] [address] Chris Orosco MD [address] [place] [phone] 12/05/2024 8:01 AM EDT - 12/05/2024 8:31 AM EDT Surgery [facility] ENDOSCOPY [address] [place] [phone] Chris Orosco MD [address] [place] [phone] EGD Scheduled Procedures Name Priority Associated Diagnoses [...]
[2024-11-06 09:16] LABS: Basophils # 0.1 K/mm3 (0-0.2); Basophils % 0.8 % (0.1-2.0); Eosinophils # 0.1 Kmm3 (0.0-0.4); Eosinophils % 1.6 % (0.1-12.0); Hematocrit 29.6 % (42.0-52.0); Hemoglobin 9.3 g/dL (14.1-18.0); Immature Granulocytes # 0.19 10^3uL; Immature Granulocytes % 2.5 %; Lymphocytes % 13.3 % (10-50); Mean Corpuscular HGB Conc 31.4 g/dL (31.8-35.4); Mean Corpuscular Hemoglobin 29.2 pg (27.0-31.2); Mean Corpuscular Volume 92.8 fl (80-94); Mean Platelet Volume 9.6 fl (7.4-10.4); Monocytes # 0.5 K/mm3 (0.1-1.0); Monocytes % 7.2 % (1.7-9.3); Neutrophils # 5.6 K/mm3 (1.8-7.8); Neutrophils % 74.6 % (37.0-80.0); Nucleated Red Blood Cells # 0 10^3/uL; Nucleated Red Blood Cells % 0 %; Platelet Count 199 K/mm3 (142-424); Red Blood Count 3.19 M/mm3 (4.60-6.20); Red Cell Distribution Width 18.7 % (11.5-17.5); Red Cell Distribution Width-SD 58.9 fL; White Blood Count 7.5 K/mm3 (4.8-10.8)
[2024-11-06 09:29] LABS: Albumin Level 3.5 g/dl (3.5-5.0); Chloride 105 mmol/L (98-107)
[2024-11-06 09:30] LABS: Potassium 4.7 mmoL/L (3.5-5.1); Sodium 136 mmol/L (136-145)
[2024-11-06 09:32] LABS: Bilirubin,Unconjugated 0.2 mg/dL (0.0-1.1); Blood Urea Nitrogen 35 mg/dl (9-20); Estimated Glomerular Filt Rate 74 ml/min (>60); GFR (African American) 89 ML/MIN (>60)
[2024-11-06 09:33] LABS: Alanine Aminotransferase 59 U/L (12-78); Alkaline Phosphatase 142 U/L (38-126); Anion Gap 13.7 mEq/L (5-15); Aspartate Amino Transferase 24 U/L (17-59); Bilirubin,Direct 0.7 mg/dl (0.0-0.4); Bilirubin,Indirect 0.2 mg/dL (0.0-0.9); Bilirubin,Total 0.9 mg/dl (0.2-1.3); Calcium 8.1 mg/dl (8.4-10.2); Carbon Dioxide 22 mmol/L (22.0-30.0); Glucose 108 mg/dl (74-100); Phosphorous 3.4 mg/dl (2.5-4.5); Total Protein,Serum 5.4 g/dl (6.3-8.2)
[2024-11-09 18:09] LABS: Tacrolimus (FK506), Blood 9.9 ng/mL (5.0-20.0)
== END 2024-11-06 23:59 | disposition home or self-care (01) ==
LOC: LAB 08:26
PROVIDERS: PCP Nurse Practitioner Family; Visit Provider Nurse Practitioner Family
DX: K74.60 Unspecified cirrhosis of liver (principal); R19.7 Diarrhea, unspecified; Z94.4 Liver transplant status; Z79.60 Long term (current) use of unspecified immunomodulators and immunosuppressants
CPT/HCPCS: 36415; 80069; 80076; 80197; 85025; 87045; 87177; 87493

== ENCOUNTER 2024-11-13 08:41 | Outpatient (CLI) | payer OTHER, SELFPAY ==
--- OUTSIDE RECORDS SUMMARY | 2024-09-25 11:25 | XMS_ITS | Encounter Summary ---
Author Organization [facility] Address [address] [place] [address] Care Team Providers Care Sheet Metal Duct Worker Supervisor Name Role Phone Unavailable Primary Care Provider [...] release of HIV test results or diagnoses. [id number] Reason for Visit * Reason Comments Labs Only Encounter Details Date Type Department Care Team (Late st Contact Info) Description 09/25/2024 11:25 AM EDT Specimen [facility] Outreach Lab [address] [place] [phone] Gerri Peterson MD [facility] [place] [address] Cirrhosis of liver with ascites, [...] Recorded In the past 12 months has [employer], oil, or water [employer] threatened to shut off services in your [...] any time in the past 12 m [facility], were you homeless or living in a correction (including now)? No 09/05/2024 Yearly Questionnaire Answer [...] Description 12/05/2024 8:01 AM EDT Hospital Encounter [facility] ENDOSCOPY [address] [place] [address] Chris Orosco MD [address] [place] [phone] 12/05/2024 8:01 AM EDT - 12/05/2024 8:31 AM EDT Surgery [facility] ENDOSCOPY [address] [place] [address] Chris Orosco MD [address] [place] [address] EGD Scheduled Procedures Name Priority Associated Diagnoses [...] BARBITURATES NOT PRESENT 09/29/2024 12:39 PM EDT [facility] BENZODIAZEPINES NOT PRESENT 09/30/19 12:39 PM EDT [facility] CANNABINOIDS NOT PRESENT 09/29/2024 12:39 PM EDT [facility] ETHNOLOGY TEACHER STIMULANTS NOT PRESENT 12:39 PM EDT [facility] OPIOID ANALGESICS PRESENT 025 12:39 PM EDT [facility] Tramadol >1000 ng/mL 09/29/2024 12:39 PM EDT [facility] OPIOID ANTAGONISTS NOT PRESENT 09/29 12:39 PM EDT [facility] SEDATIVES/MUSCLE RELAXANTS NOT PRESENT 09/29/2024 12:39 PM EDT [facility] TRICYCLIC ANTIDEPRESSANTS NOT PRESENT 09/29/2024 12:39 PM EDT [facility] Creatinine, Ur 122.10 mg/dL 09/26/2024 11:30 AM EDT [facility] Comment:Reference range not established for this test. pH 5.8 4.7 - 7.8 09/26/2024 11:30 AM EDT [facility] Specific [place] 1.010 1.003 - 1.035 09/26/2024 11:30 AM EDT [facility] Urine 09/25/2024 11:5 5 AM EDT 09/25/2024 12:19 PM EDT Narrative [facility] - 09/29/2024 12:39 PM EDT This test has been developed and its performance characteristics determined by [facility] which is certified under the [...] Chinedu Sidhu MD URINE ORDERABLES Final Result [facility] [address] [place] [address], [facility] * Phosphatidylethanol Confirmation, B (09/25/2024 11:55 AM EDT) PETH 16:0/18.1 (POPETH) <10 Cutoff: 10 ng/mL 09/29/2024 12:24 PM EDT [facility] Comment: Phosphatidylethanol (PEth) homologues result [...] Cutoff: 10 ng/mL 09/29/2024 12:24 PM EDT [facility] Comment: PEth 16:0/18:2 (PLPEth) Reference ranges are not well established PEth Interpretation Negative. 09/29 12:24 PM EDT [facility] Comment: ADDITIONAL INFORMATION This report is intended for use in clinical monitoring and management of patients. It is not intended for use in employment-related testing. This test was developed and its performance characteristics determined by [facility] in a manner consistent with CLIA requirements. This test has not been cleared or approved by the U.S. Food and Drug Administration. Test Performed by: [facility] [address] [place] [address] [employer] Truck Driver: Kathy Ortiz Ph.D.; CLIA# [id number] Whole Blood 09/25/2024 11:5 5 AM EDT 09/29/2024 12:24 PM EDT Chindeu Sidhu MD LAB BLOOD ORDERABLES Final Re sult Performing Organization Address City/[facility]/ZIP Co de Phone Number [facility] [address] [facility]. [address] * (ABNORMAL) Hepatic Function Panel (09/25/2024 11:55 AM EDT) Total Bilirubin 20.2(H) 0.0 - 1.5 mg/dL 09/25/2024 1:02 PM EDT [facility] Bilirubin, Direct 13.33(H) 0.00 - 0.40 mg/dL 09/25/2024 1:02 PM EDT [facility] AST 57(H) 13 - 39 U/L 09/25/2024 1:02 PM EDT [facility] ALT 29 7 - 52 U/L 09/25/2024 1:02 PM EDT [facility] Alkaline Phosphatase 171(H) 36 - 125 U/L 09/25/2024 1:02 PM EDT [facility] Total Protein 5.6(L) 6.4 - 8.9 g/dL 09/25/2024 1:02 PM EDT [facility] Albumin 3.5 3.5 - 5.7 g/dL 09/25/2024 1:02 PM EDT [facility] Bilirubin, Indirect 6.87(H) 0.00 - 1.10 mg/dL 09/25/2024 1:02 PM EDT [facility] Plasma 09/25/2024 11:5 5 AM EDT 09/25/2024 12:21 PM EDT us Gerri Peterson MD LAB BLOOD ORDERABLES Final Resu lt [facility] [address] [facility]. [address] * (ABNORMAL) Protime-INR (09/25/2024 11:55 AM EDT) Protime 23.6(H) 12.1 - 15.1 seconds 09/25/2024 12:46 PM EDT [facility] INR 2.0(H) 0.9 - 1.1 09/25/2024 12:46 PM EDT [facility] Comment: RECOMMENDED THERAPEUTIC RANGES USING INR : Stable oral anticoagulant therapy: 2.0 - 3.0 Mechanical prosthetic heart valve: 2.5 - 3.5 Recurrent acute myocardial infarction: 2.5 - 3.5 Plasma 09/25/2024 11:5 5 AM EDT 09/25/2024 12:20 PM EDT us Gerri Peterson MD LAB BLOOD ORDERABLES Final Resu lt [facility] [address] * (ABNORMAL) CBC (09/25/2024 11:55 AM EDT) WBC 8.2 3.8 - 10.8 10E3/uL 09/25/2024 1:43 PM EDT [facility] RBC 2.88(L) 4.20 - 5.80 10E6/uL 09/25/2024 1:43 PM EDT [facility] Hemoglobin 10.8(L) 13.2 - 17.1 g/dL 09/25/2024 1:43 PM EDT [facility] Hematocrit 29.8(L) 38.5 - 50.0 % 09/25/2024 1:43 PM EDT [facility] MCV 103.5(H) 80.0 - 100.0 fL 09/25/2024 1:43 PM EDT [facility] MCH 37.6(H) 27.0 - 33.0 pg 09/25/2024 1:43 PM EDT [facility] MCHC 36.3(H) 32.0 - 36.0 g/dL 09/25/2024 1:43 PM EDT [facility] RDW 20.1(H) 11.0 - 15.0 % 09/25/2024 1:43 PM EDT [facility] Platelets 62(L) 140 - 400 10E3/uL 09/25/2024 1:43 PM EDT [facility] Comment: _Platelets Appear Decreased Slide Reviewed for PLT Clumps. None Seen. Specimen checked for clots. None detected. MPV 8.3 7.5 - 11.5 fL 09/25/2024 1:43 PM EDT [facility] Whole Blood 09/25/2024 11:5 5 AM EDT 09/25/2024 12:20 PM EDT us Gerri Peterson MD LAB BLOOD ORDERABLES Final Resu lt [facility] [address] [facility] [place] [address], [facility] * (ABNORMAL) Comprehensive metabolic panel (09/25/2024 11:55 AM EDT) Sodium 133 133 - 146 mmol/L 09/25/2024 12:50 PM EDT [facility] Potassium 4.1 3.5 - 5.3 mmol/L 09/25/2024 12:50 PM EDT [facility] Chloride 103 98 - 110 mmol/L 09/25/2024 12:50 PM EDT [facility] CO2 18(L) 21 - 33 mmol/L 09/25/2024 12:50 PM EDT [facility] Anion Gap 12 3 - 16 mmol/L 09/25/2024 12:50 PM EDT [facility] BUN 42(H) 7 - 25 mg/dL 09/25/2024 12:50 PM EDT [facility] Creatinine 3.13(H) 0.60 - 1.30 mg/dL 09/25/2024 12:50 PM EDT [facility] Glucose 106(H) 70 - 100 mg/dL 09/25/2024 12:50 PM EDT [facility] Calcium 9.3 8.6 - 10.3 mg/dL 09/25/2024 12:50 PM EDT [facility] Total Bilirubin 20.2(H) 0.0 - 1.5 mg/dL 09/25/2024 1:02 PM EDT [facility] AST 57(H) 13 - 39 U/L 09/25/2024 1:02 PM EDT [facility] ALT 29 7 - 52 U/L 09/25/2024 1:02 PM EDT [facility] Alkaline Phosphatase 171(H) 36 - 125 U/L 09/25/2024 1:02 PM EDT [facility] Total Protein 5.6(L) 6.4 - 8.9 g/dL 09/25/2024 1:02 PM EDT [facility] Albumin 3.5 3.5 - 5.7 g/dL 09/25/2024 1:02 PM EDT [facility] Osmolality, Calculated 287 278 - 305 mOsm/kg 09/25/2024 12:50 PM EDT [facility] EGFR 25 09/25/2024 12:50 PM EDT [facility] Comment:As of 2021, the estimated [...] BLOOD ORDERABLES Final Resu lt [facility] [address] [place] [address], [facility] documented in this encounter Visit Diagnoses [...]
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
--- OUTSIDE RECORDS SUMMARY | 2024-09-29 14:20 | XMS_ITS | Encounter Summary ---
Author Organization Healthcare Address [address] [place] [address] Care Team Providers Care Operating Engineer Name Role Phone [place], Lj Nova APRN Unavailable [phone] Enedina Mcguire APRN Primary Care Provider + Reason for Referral * Consultation (Routine) - Authorized Specialty Diagnoses / Procedures Referred By Shane t Referred To Contact Diagnoses NADIYA (acute kidney injury) (CMS/HCC) Portal hypertension (CMS/HCC) Secondary esophageal varices with bleeding (CMS/HCC) Yovanny Curran MD [address] [address] Phone: tel: fax: Referral ID Status Reason Start Date Expiration Date V isits Requested Visits Authorized [id number] Authorized 09/29/2024 03/31/2026 1 1 Reason for Visit * Reason Comments Follow-up Pt did not taken vit al sign Encounter Details Date Type Department Care Team ([facility] Contact Info) Description 09/29/2024 2:20 PM EDT Office Visit Professional [facility] [address] , [address] [place] [address] Yovanny Bob MD [address] [place] [address] NADIYA (acute kidney injury) (CMS/HCC) [...] answer 07/14/2024 How often do you attend [facility] center or sabianism services? Patient unable to answer 07/14/2024 Do you belong to any clubs o r organizations such as gnosticist groups, unions, fraternal or athletic groups, or [...] Recorded Patient Health Questionnaire-2 Score 2 09/29/2024 [facility] - Occupational Stress Questionnaire Answer Date Recorded [...] place to sleep or slept in a residential (including now)? No 11/19/2023 PHQ-9 Answer Date [...] any time in the past 12 m [facility], were you homeless or living in a residential (including now)? 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-IT SECURITY CONSULTING DIRECTOR) to steady your nerves or to get rid of a hangover? 0 07/19/2024 CAGE Questionnaire Score 2 025 Utilities Answer Date Recorded In the past 12 months has th [employer], gas, oil, or water [employer] threatened to shut off services in your [...] Patient confirms they are physically located in [place]? Yes If the patient is not physically located in [place], the provider has confirmed with [facility] thatthe provider is authorized to provide services in patient's stated location? N/A Provider Location: [facility] facility Audio and video or audio only? Audio and video Total visit time: 20 minutes HISTORY OF PRESENT ILLNESS Julien Anderson was seen in our clinic previously with/for Follow-up. As you know, patient is a 39 y.o. male who presents to the clinic today as follow up of his NADIYA. Most recently discharged on 09/09 from [facility]. Cr at time of discharge was 2.4. Cr most recently at [facility] was 3.0. On bicarb repletion. C/O abdominal [...] impressions, importance of compliance with treatment, and assisted nature of condition. Education provided was verbal [...] 12/01/2024 2:20 PM EDT Office Visit [facility] [address], [address] [place] [address] Yovanny Curran MD [address] [place] [address] 01/08/2025 3:20 PM EDT Office Visit [facility] [address], [address] [place] [address] Vincent Braga MD [address] [place] [address] Scheduled Referrals Name Type Priority [...] documented as of this encounter Care Teams Operating Engineer Relationship Specialty Start Date End Date Enedina Mcguire APRN [address] [place] [id number] PCP - General 12/04/22 Lj Tapia APRN [facility] [place], [place] [id number] Referring Physician Gastroenterology 07/18/22 documented as of this encounter
--- OUTSIDE RECORDS SUMMARY | 2024-10-05 23:12 | XMS_ITS | Encounter Summary ---
Author Organization [facility] Address [facility] [place] [place] [address] Care Team Providers Care Box Printer Name Role Phone Enedina Mcguire NP Primary Care Provider [phone] Source Comments This information has been disclosed [...] release of HIV test results or diagnoses. [id number] Reason for Referral * Surgical (Routine) - Pending Review Specialty Diagnoses / Procedures Referred By Shane hernadez Referred To Contact Gastroenterology Diagnoses Alcoholic cirrhosis of liver with ascites (CMS-HCC) Procedures Case request GI: EGGerri Min MD [address] [place] [address] Phone: tel: fax: Referral ID Status Reason Start Date Expiration Date V isits Requested Visits Authorized [id number] Pending Review 10/08/2024 04/06/2025 1 1 Reason for Visit * Auth/Cert (Routine) Specialty Diagnoses / Procedures Referred By Shane hernadez Referred To Contact General Internal Medicine Diagnoses [facility] [address] [place] [address] Phone: tel: Referral ID Status Reason Start Date Expiration Date Visits Re quested Visits Authorized [id number] 1 1 Encounter Details Date Type Department Care Team (Latest Contact Info) Description 10/05/2024 11:12 PM EDT - 10/17/2024 10:29 AM EDT Hospital Encounter [facility] [address] [place] [id number] Angie Blanhcard MD [address] [place] [address] Fouzia Rene MD [address] [place] [address] Med/[place] [address] Chelsy Lerner MD [address] [place] [address] [place] [address] Alcoholic cirrhosis of liver with [...] Recorded In the past 12 months has [employer], gas, oil, or water [employer] threatened to shut off services in [...] living in a mcc (including now)? No 10/06/2024 Yearly Questionnaire Answer [...] Home post discharge: Not Applicable Kandy [facility] [phone] * William Blount MD - 10/17/2024 8:50 AM EDT [facility] Inpatient Discharge Summary Patient: Julien Gilbert Age: 39 y.o. CSN: [id number] Date of Admission: 10/05/2024 Date of Discharge: 10/17/2024 Attending Physician: Chelsy Lerner MD Primary Care Physician: Enedina Mcguire NP Diagnoses Present on Admission Past Medical History: Diagnosis Date Alcoholic cirrhosis of liver (CMS-HCC) Esophageal varices (CMS-HCC) Hepatorenal syndrome (CMS-HCC) Hypertension Other hyperlipidemia 07/26/2024 Renal cell carcinoma (CMS-HCC) Thrombocytopenia ([facility]) Thyroid disease Discharge Diagnoses Active [...] Case IDs Date Procedure Surgeon Location Status [id number] 10/10/24 EGD Lino Soto MD ENDOSCOPY Comp [id number] 10/14/24 Left Heart Cath Irving Matta MD [...] at 10/08/2024 1:12 PM EDT US Duplex Bjd-Jek-Nmztcwd Comp Final Result IMPRESSION: ABDOMEN 1. Cirrhotic [...] 90 tablet Refills: 0 naloxone 4 mg/actuation Salvo Commonly known as: NARCAN Apply 1 spray [...] Your Medications These medications were sent to [facility] [address] [place] [address] Hours: Sunday - Sunday: 8:00AM - 6:00PM FLUoxetine 20 MG capsule lactulose 10 gram/15 mL solution loratadine 10 mg tablet methocarbamoL 500 MG tablet midodrine 10 MG tablet naloxone 4 mg/actuation Salvo oxyCODONE 5 MG immediate release tablet Discharge [...] Questions: Select Supplement: Boost-1 kcal/ml supplement ([facility] only) As listed above, low sodium diet [...] AM EDT 10/17/2024 naloxone (NARCAN) 4 mg/actuation Salvo Apply 1 spray in one nostril if [...] Hughes MD - 10/17/2024 10:23 AM EDT [facility] PROGRESS NOTE Name: Julien Gilbert CSN: [id number] Consulted by: Chelsy Lrener MD Reason for Consult: Decompensated Cirrhosis History [...] Yes Past Week naloxone (NARCAN) 4 mg/actuation Salvo Apply 1 spray in one nostril if [...] nucleated cells, <2000 RBCs 10% Polynuclear, 90% Blount nuc. There were initial reports of gram [...] of chemical dependency treatment as outpatient. - [facility] with no obstructive coronary disease - Psych eval for PTSD With recommendation of sertraline - Given his renal dysfunction, will plan to list for [facility] when he qualifies on 10/22/2024. Labs next week - Plan for d/c today Bobby Sidhu MD Transplant Case Specialist Please see the body of the resident, [...] remains <30 until October 22. Waiting for [facility] today. ASSESSMENT NADIYA on CKD, last discharge [...] Staff. Jeremiah Gamino PGY4 Nephrology. Pager no. [phone] Chief Complaint No chief complaint on file. [...] at 10/08/2024 1:12 PM EDT US Duplex Ycm-Uuq-Ihqqcwn Comp Final Result IMPRESSION: ABDOMEN 1. Cirrhotic [...] no head imaging has been performed at [facility]. -CT Head w/o contrast -Imaging showed [...] Questions: Select Supplement: Boost-1 kcal/ml supplement ([facility] only) Code Status: Full Code Signed: WILLIAM BLOUNT MD 10/16/2024, 2:16 PM Cosigned by Chelsy Lerner MD at 10/16/2024 5:38 PM EDT Associated attestation - Chelsy Lerner MD - 10/16/2024 5:38 PM EDT [facility] Medicine Attending Supervision Note Julien Gilbert [...] another specialty or practice, other licensed professional (PT/OT/INBOUND SALES CONSULTANT/RT), or a non-medical community professional: Hepatology, [...] due to positioning during LHC on 10/14. [place] the worst in CVR, but has improved [...] Kumar, RD - 10/16/2024 1:08 PM EDT [facility] Medical Nutrition Therapy Follow-Up Diet Order/Nutrition Support: Regular diet, Boost TID - Vanilla preference Pertinent Information: This is a 39 year old male history of ETOH cirrhosis d/b HE, ascites with SBP who is admitted for AMS. Precipitant of his HE likely SBP. Diagnostic paracentesis at OSH reportedly showed 61 nucleated cells, <2000 RBCs 10% Polynuclear, 90% Blount nuc. There were initial reports of gram [...] Based on CBW of 119.5 kg Kcals/day: 0212-6850 (18-21 kcals/kg) Protein g/day: 119-143 (1-1.2 g/kg) [...] Kumar RD, LD Clinical Dietitian Contact via [employer] * Jerad Hughes MD - 10/16/2024 11:03 AM EDT [facility] PROGRESS NOTE Name: Julien Gilbert CSN: [id number] Consulted by: Chelsy Lerner MD Reason for [...] nucleated cells, <2000 RBCs 10% Polynuclear, 90% Blount nuc. There were initial reports of gram [...] of chemical dependency treatment as outpatient. - [facility] with no obstructive coronary disease - Psych eval for PTSD With recommendation of sertraline - Given his renal dysfunction, will plan to list for [facility] when he qualifies on 10/22/2024. - Will follow Bobby Sidhu MD Transplant Case Specialist Please see the body of the resident, [...] remains <30 until October 22. Waiting for [facility] today. ASSESSMENT NADIYA on CKD, last discharge [...] COMMENT on 10/08/2024 Iron%- Iron replete PLAN -[facility] yesterday- patient remains at risk of contrast related injury on top of exisiting NADIYA for 24-48 hrs after contrast load. -He is volume overloaded -patient needs to follow up closely with nephrology after discharge Thank you for allowing us to participate in this patient's care. Discussed with Consult Staff. Jeremiah Gamino PGY4 Nephrology. Pager no. [phone] Chief Complaint No chief complaint on file. [...] at 10/08/2024 1:12 PM EDT US Duplex Cud-Tgp-Xndijpr Comp Final Result IMPRESSION: ABDOMEN 1. Cirrhotic [...] no head imaging has been performed at [facility]. -CT Head w/o contrast -Imaging showed [...] Questions: Select Supplement: Boost-1 kcal/ml supplement ([facility] only) Code Status: Full Code Signed: WILLIAM BLOUNT MD 10/15/2024, 10:49 AM Cosigned by Chelsy Lerner MD at 10/15/2024 2:47 PM EDT Associated attestation - Chelsy Lerner MD - 10/15/2024 2:47 PM EDT [facility] Medicine Attending Supervision Note Julien Gilbert [...] another specialty or practice, other licensed professional (PT/OT/INBOUND SALES CONSULTANT/RT), or a non-medical community professional: Hepatology, [...] due to positioning during LHC on 10/14. [place] the worst in CVR, but has improved [...] Hughes MD - 10/15/2024 10:15 AM EDT [facility] PROGRESS NOTE Name: Julien Gilbert CSN: [id number] Consulted by: Chelsy Lerner MD Reason for [...] nucleated cells, <2000 RBCs 10% Polynuclear, 90% Blount nuc. There were initial reports of gram [...] - Will follow Bobby Sidhu MD Transplant Case Specialist Please see the body of the resident, [...] Quan MD - 10/14/2024 2:34 PM EDT [facility] Department of Cardiovascular Health and Diseases Cardiology [...] remains <30 until October 22. Waiting for [facility] today. ASSESSMENT NADIYA on CKD, last discharge [...] COMMENT on 10/08/2024 Iron%- Iron replete PLAN -[facility] today -pt is volume up slightly -standing weights daily -c.w sodium bicarb tablets -discssed with the patient anad family about risk of needing HD after [facility] Thank you for allowing us to participate in this patient's care. Discussed with Consult Staff. Jeremiah Gamino PGY4 Nephrology. Pager no. [phone] Chief Complaint No chief complaint on file. [...] is Acute kidney injury superimposed on CKD ([facility]). No acute events overnight. Pt with chronic [...] at 10/08/2024 1:12 PM EDT US Duplex Nbm-Jnt-Xmospbj Comp Final Result IMPRESSION: ABDOMEN 1. Cirrhotic [...] not tolerate Stress ECHO on 10/09 - [facility] today -Per GI recs, started on midodrine [...] no head imaging has been performed at [facility]. -CT Head w/o contrast -Imaging showed [...] never required dialysis. Patient is going for [facility] today and will receive contrast, okay per [...] Questions: Select Supplement: Boost-1 kcal/ml supplement ([facility] only) Code Status: Full Code Signed: WILLIAM BLOUNT MD 10/14/2024, 10:26 AM Cosigned by Chelsy Lerner MD at 10/14/2024 11:53 AM EDT Associated attestation - Chelsy Lerner MD - 10/14/2024 11:53 AM EDT [facility] Medicine Attending Supervision Note Julien Gilbert [...] another specialty or practice, other licensed professional (PT/OT/INBOUND SALES CONSULTANT/RT), or a non-medical community professional: Hepatology, [...] Hughes MD - 10/14/2024 7:42 AM EDT [facility] PROGRESS NOTE Name: Julien Gilbert CSN: [id number] Consulted by: Chelsy Lerner MD Reason for [...] nucleated cells, <2000 RBCs 10% Polynuclear, 90% Blount nuc. There were initial reports of gram [...] eval ongoing. Transplant work up ongoing - [facility] today - Transplant nephrology following for consideration [...] - Will follow Bobby Sidhu MD Transplant Case Specialist Please see the body of the resident, [...] Staff. Jeremiah Gamino PGY4 Nephrology. Pager no. [phone] Chief Complaint No chief complaint on file. [...] Hughes MD - 10/13/2024 12:33 PM EDT [facility] PROGRESS NOTE Name: Julien Gilbert CSN: [id number] Consulted by: Fouzia Rene MD Reason for [...] of liver (CMS-HCC) Alcoholic hepatitis Esophageal varices ([facility]) Hepatorenal syndrome ([facility]) Hypertension Other hyperlipidemia 07/26/2024 Renal [...] nucleated cells, <2000 RBCs 10% Polynuclear, 90% Blount nuc. There were initial reports of gram [...] eval ongoing. Transplant work up ongoing - [facility] today - Transplant nephrology following for consideration [...] - Will follow Bobby Sidhu MD Transplant Case Specialist Please see the body of the resident, [...] any interval liver pathology. * Rebekah Linares, [facility] - 10/13/2024 12:30 PM EDT Start Time: [...] no psychomotor abnormalities Cognition: short term and intermediate card tender memory intact Attitude: cooperative Affect: full range [...] Fabian, RD - 10/13/2024 10:49 AM EDT [facility] Medical Nutrition Therapy Reason(s) for Completion: Nutrition [...] Questions: Select Supplement: Boost-1 kcal/ml supplement ([facility] only) Pertinent Information: Julien Gilbert is a 39 y.o. Male admitted for Acute kidney injury superimposedon CKD ([facility]) Pt noted to have waxing and waning [...] kg) Body mass index is 32.07 kg/m??. Rudy Body Weight: 202 lbs (91.8 kg) +/- 10% Weight History: Wt Readings from Last 10 Encounters: 10/10/24 (!) 263 lb 8 oz (119.5 kg) 09/05/24 (!) 262 lb 9.6 oz (119.1 kg) 09/02/24 (!) 258 lb (117 kg) 08/17/24 (!) 242 lb 11.2 oz (110.1 kg) 07/28/24 (!) 245 lb (111.1 kg) Estimated Nutrition Needs: Based on CBW of 119.5 kg Kcals/day: 1056-4404 (18-21 kcals/kg) Protein g/day: 119-143 (1-1-2 g/kg) [...] Dietitian - Solid Organ Transplant Contact via [employer] * Eileen Schroeder MD, PhD - [...] at 10/08/2024 1:12 PM EDT US Duplex Iwg-Hhq-Huhgbng Comp Final Result IMPRESSION: ABDOMEN 1. Cirrhotic [...] no head imaging has been performed at [facility]. -CT Head w/o contrast -Imaging showed [...] Questions: Select Supplement: Boost-1 kcal/ml supplement ([facility] only) Code Status: Full Code Signed: EILEEN [...] I reviewed the documentation by the medical team assistant and agree as documented. Any additions or clarifications are listed below. Daily plan was discussed with patient at bedside and questions addressed. Patient ID: Jluien Gilbert is a 39 y.o. male currently [...] was non-diagnostic due to hypotension. Plan for [facility] today, but now moved to tomorrow. - [...] when medically ready. Consider d/c home after [facility] tomorrow. FOUZIA RENE MD Attending Physician Department of Internal Medicine 10/13/2024 Medical Decision Making: // LEVEL 2 MOD One chronic illness with exacerbation, progression, or side effects of treatment Discussed with physician/SAWYER from another specialty or practice, other licensed professional (PT/OT/INBOUND SALES CONSULTANT/RT), or a non-medical community professional: Nephrology, [...] at 10/08/2024 1:12 PM EDT US Duplex Eso-Hhq-Oqlsloo Comp Final Result IMPRESSION: ABDOMEN 1. Cirrhotic [...] no head imaging has been performed at [facility]. -CT Head w/o contrast -Imaging showed [...] Questions: Select Supplement: Boost-1 kcal/ml supplement ([facility] only) Code Status: Full Code Signed: CHARI [...] I reviewed the documentation by the medical team assistant and agree as documented. Any additions or clarifications are listed below. Daily plan was discussed with patient at bedside and questions addressed. Patient ID: Julien Gilbert is a 39 y.o. male currently admitted for Acute kidney injury superimposed on CKD ([facility]) Supplemental History/ ROS: No acute events overnight [...] was non-diagnostic due to hypotension. Plan for [facility] tomorrow. - EGD completed. - Imaging requiring [...] reflux disease) Anemia SBP (spontaneous bacterial peritonitis) ([facility]) Neck pain with history of cervical spinal [...] another specialty or practice, other licensed professional (PT/OT/INBOUND SALES CONSULTANT/RT), or a non-medical community professional: Nephrology, [...] tid. cardiac workup pre txp. pLan for [facility] Sunday Liver transplant workup per GI/ Primary [...] concern for hepatorenal syndrome.` Patient came from [facility], paracentesis was performed yesterday on 10/05? [...] 706.9 (H) 10/08/2024 No results found for: [id number] , FOLATE Lab Results Component Value Date [...] CRUR No results found for: MICROALBUR , [id number] In addition to the above an extensive [...] 4.6 10/12/2024 Lab Results Component Value Date XUXJ95K 7.1 (L) 10/08/2024 PLAN Monitor renal panel [...] AM Colten Huertas MD, KISHOR LIN FNKF chief technology officer Div. of Nephrology [facility] E-mail: [email or web address] This note was completely edited, written [...] Rene MD Interval hx No issues. Pending [facility]. Assessment: Renal Function: Cr: 2.77 Bun: 49 [...] concern for hepatorenal syndrome.` Patient came from [facility], paracentesis was performed yesterday on 10/05? [...] 706.9 (H) 10/08/2024 No results found for: [id number] , FOLATE Lab Results Component Value Date [...] CRUR No results found for: MICROALSERGIO , [id number] In addition to the above an extensive [...] 3.5 10/11/2024 Lab Results Component Value Date LAGH69T 7.1 (L) 10/08/2024 PLAN Monitor renal panel [...] AM Colten Huertas MD, DELIA, KISHOR, FNKF chief technology officer Div. of Nephrology [facility] E-mail: [email or web address] This note was completely edited, written [...] is Acute kidney injury superimposed on CKD ([facility]). NAEON Pt felt much better today. A&O [...] at 10/08/2024 1:12 PM EDT US Duplex Yeq-Nzm-Tqbvlxx Comp Final Result IMPRESSION: ABDOMEN 1. Cirrhotic [...] from outside facility. Will engage with them daily([phone]. Ask to speak to a tech) about [...] no head imaging has been performed at [facility]. -CT Head w/o contrast -Imaging showed [...] Questions: Select Supplement: Boost-1 kcal/ml supplement ([facility] only) Code Status: Full Code Signed: CHARI [...] I reviewed the documentation by the medical team assistant and agree as documented. Any additions or clarifications are listed below. Daily plan was discussed with patient at bedside and questions addressed. Patient ID: Julien Gilbert is a 39 y.o. male currently admitted for Acute kidney injury superimposed on CKD ([facility]) Supplemental History/ ROS: No acute events overnight [...] another specialty or practice, other licensed professional (PT/OT/INBOUND SALES CONSULTANT/RT), or a non-medical community professional: Nephrology, [...] Strictly monitor urine output No Indication for TUBE REPAIRER 3. Not a candidate for terlipressin per [...] Ignacio Queen MD Renal Fellow Pager # [phone] Chief Complaint No chief complaint on file. [...] concern for hepatorenal syndrome.` Patient came from [facility], paracentesis was performed yesterday on 10/05? [...] PHOS -- < > 3.5 3.4 3.3 ESLJ70E 7.1* -- -- -- -- < > = values in this interval not displayed. Lab Results Component Value Date IRON 81 10/08/2024 TIBC SEE COMMENT 10/08/2024 FERRITIN 706.9 (H) 10/08/2024 No results found for: [id number] , FOLATE Lab Results Component Value Date [...] CRUR No results found for: MICROALBUR , [id number] In addition to the above an extensive [...] 3.3 10/10/2024 Lab Results Component Value Date OUUY67N 7.1 (L) 10/08/2024 PLAN Continue IV albumin [...] AM Colten Huertas MD, KISHOR LIN FNKF chief technology officer Div. of Nephrology [facility] E-mail: [email or web address] This note was completely edited, written [...] follow pt while pt is at [facility]. * Jodi Ortiz PharmD - 10/10/2024 10:27 AM EDT Clinical Pharmacy Service: Vancomycin Consult Progress Note Patient has been transitioned off of vancomycin therapy per team notes and orders. Pharmacy will sign-off at this time, please do not hesitate to consult again as needs arise. Thank you for involving pharmacy in the care of this patient. Jodi Ortiz PharmD Clinical Transition Mgr, Internal Medicine Preferred contact: [employer] [facility] Ydrwxkd-Ud-Cgqe Pager: [phone] October 10, 2024 10:27 AM Laboratory Data [...] 10/07/2024 10:50 PM Giardia Cryptosporidium Antigens Final [id number] 10/07/2024 10:50 PM Ova and Parasite Comprehensive w/ Giardia/Crypto Final [id number] Feces 10/06/2024 1:04 AM #2 Blood culture-Peripheral site 2 Preliminary [id number] Peripheral 10/06/2024 1:04 AM #1 Blood culture-Peripheral site 1 Preliminary [id number] Peripheral Pharmacokinetics Lab Results (Last 7 days) Today 0523 Yesterday 0459 10/08 0536 [facility] Rdm 16.4 11.0 16.0 * Gerri Peterson MD - 10/10/2024 10:09 AM EDT [facility] PROGRESS NOTE Name: Julien Gilbert CSN: [id number] Consulted by: Fouzia Rene MD Reason for [...] nucleated cells, <2000 RBCs 10% Polynuclear, 90% Blount nuc. Per OSH reports, ascitic fluid cultures [...] from the original note were not included. [facility] Clinical Pharmacy Service: Vancomycin Monitoring Consult [...] in sodium chloride 0.9 % 250 mL Xaxx0Hhe (Completed) 1,500 mg Once 10/09/2024 10/09/2024 Admin Instructions: Contact pharmacy if there is a question/concern of whether vancomycin should begiven based on serum drug levels. Use Xgcc0Gfx Adapter - Mix Thoroughly Before Administration Route: Intravenous vancomycin (VANCOCIN) 1,500 mg in sodium chloride 0.9 % 250 mL Acus7Owq 1,500 mg Once 10/10/2024 10/11/2024 Admin Instructions: Contact pharmacy if there is a question/concern of whether vancomycin should begiven based on serum drug levels. Use Ncyz9Qgt Adapter - Mix Thoroughly Before Administration Route: [...] in sodium chloride 0.9 % 250 mL Fhab3Zzk 1,500 mg 166.7 mL/hr 10/08/24 1259 New Bag vancomycin (VANCOCIN) 1,000 mg in sodium chloride 0.9 % 250 mL Pgoi8Elp 1,000 mg 250 mL/hr --Objective Data-- Vitals: [...] 53 53 54 Creatinine 2.85 2.89 3.04 Rudy body weight: 86.8 kg (191 lb 5.7 oz) Adjusted ideal body weight: 99.9 kg (220 lb 3.5 oz) Estimated CrCl: ~35-45 mL/min --Cultures-- Microbiology Results Date and Time Order Name Sensitivity Status Organisms Specimen ID Source 10/07/2024 10:50 PM Giardia Cryptosporidium Antigens Final [id number] 10/07/2024 10:50 PM Ova and Parasite Comprehensive w/ Giardia/Crypto Final [id number] Feces 10/06/2024 1:04 AM #2 Blood culture-Peripheral site 2 Preliminary [id number] Peripheral 10/06/2024 1:04 AM #1 Blood culture-Peripheral site 1 Preliminary [id number] Peripheral --Vancomycin Concentrations-- Lab Results (Last 7 [...] for the consult. Jodi Ortiz, PharmD Clinical Transition Mgr, Internal Medicine Preferred contact: [employer] [facility] Kvpgrqb-Bj-Eror Pager: [phone] October 10, 2024 9:13 AM * Eileen [...] at 10/08/2024 1:12 PM EDT US Duplex Mjc-Mmw-Qyhymij Comp Final Result IMPRESSION: ABDOMEN 1. Cirrhotic [...] from outside facility. Will engage with them daily([phone]. Ask to speak to a tech) about [...] no head imaging has been performed at [facility]. -CT Head w/o contrast -Imaging showed [...] Questions: Select Supplement: Boost-1 kcal/ml supplement ([facility] only) Code Status: Full Code Signed: EILEEN [...] I reviewed the documentation by the medical team assistant and agree as documented. Any additions or clarifications are listed below. Daily plan was discussed with patient at bedside and questions addressed. Patient ID: Juline Gilbert is a 39 y.o. male currently admitted for Acute kidney injury superimposed on CKD ([facility]) Supplemental History/ ROS: No acute events overnight [...] for Acute kidney injury superimposed on CKD ([facility]) Active Problems: Spontaneous Bacterial Peritonitis ([facility]): Cultures from OSH were reported as growing [...] Continue home lactulose and rifaximin Decompensated cirrhosis ([facility]): Appreciate hepatology consult. He has [...] IR. NADIYA (acute kidney injury) on CKD ([facility]): Appreciate nephrology consult. Likely due to hepatorenal syndrome. S/p albumin X3. baseline creatinine presumed to be around 2.5. Creatinine slowly improving. We will continue to monitor. Electrolyte derangements: Replete as needed Neck Pain: He has a history of cervical surgery. Continue oxycodone as needed for pain. Continue tomonitor. Principal Problem: Acute kidney injury superimposed on CKD ([facility]) Active Problems: Decompensated cirrhosis ([facility]) Metabolic encephalopathy Thrombocytopenia ([facility]) Renal mass, left Metabolic acidosis with normal anion gap and bicarbonate losses GERD (gastroesophageal reflux disease) Anemia SBP (spontaneous bacterial peritonitis) ([facility]) Neck pain with history of cervical spinal [...] another specialty or practice, other licensed professional (PT/OT/INBOUND SALES CONSULTANT/RT), or a non-medical community professional: Nephrology, [...] Strictly monitor urine output No Indication for TUBE REPAIRER Not a candidate for terlipressin per liver due to HE, liver and kidney failure, on midodrine tid. Considering para today, cardiac workup pre txp Liver transplant workup per GI/ Primary team, considering for SLK, seen by renal transplant team Thank you for allowing us to participate in this patient's care. Discussed with Consult Staff. Ignacio Queen MD Renal Fellow Pager # [phone] Chief Complaint No chief complaint on file. [...] concern for hepatorenal syndrome.` Patient came from [facility], paracentesis was performed yesterday on 10/05? [...] 9.0 9.3 PHOS -- 3.5 3.5 3.4 [id number] 7.1* -- -- -- Lab Results Component Value Date IRON 81 10/08/2024 TIBC SEE COMMENT 10/08/2024 FERRITIN 706.9 (H) 10/08/2024 No results found for: XAZWRWLM25 , FOLATE Lab Results Component Value Date [...] CRUR No results found for: MICROALBUR , [id number] In addition to the above an extensive [...] 3.4 10/09/2024 Lab Results Component Value Date BZYU02Z 7.1 (L) 10/08/2024 PLAN Continue IV albumin [...] PM Colten Huertas MD, KISHOR LIN FNKF chief technology officer Div. of Nephrology [facility] E-mail: [email or web address] This note was completely edited, written [...] Peterson MD - 10/09/2024 1:07 PM EDT [facility] HEPATOLOGY PROGRESS NOTE Name: Julien Gilbert CSN: [id number] Consulted by: Fouzia Rene MD Reason for [...] nucleated cells, <2000 RBCs 10% Polynuclear, 90% Blount nuc. Fluid cultures reportedly grew gram + [...] from the original note were not included. [facility] Clinical Pharmacy Service: Vancomycin Monitoring Consult [...] in sodium chloride 0.9 % 250 mL Tsfl5Vmg (Completed) 1,000 mg Once 10/08/2024 10/08/2024 Admin Instructions: Contact pharmacy if there is a question/concern of whether vancomycin should begiven based on serum drug levels. Use Jubw4Hpw Adapter - Mix Thoroughly Before Administration Route: Intravenous vancomycin (VANCOCIN) 1,500 mg in sodium chloride 0.9 % 250 mL Jzan3Viu 1,500 mg Once 10/09/2024 10/10/2024 Admin Instructions: Contact pharmacy if there is a question/concern of whether vancomycin should begiven based on serum drug levels. Use Nxpl6Gdw Adapter - Mix Thoroughly Before Administration Route: [...] in sodium chloride 0.9 % 250 mL Igag3Khz 1,000 mg 250 mL/hr 10/06/24 1413 New [...] 10/07/2024 10:50 PM Giardia Cryptosporidium Antigens Final [id number] 10/07/2024 10:50 PM Ova and Parasite Comprehensive w/ Giardia/Crypto Final [id number] Feces 10/06/2024 1:04 AM #2 Blood culture-Peripheral site 2 Preliminary [id number] Peripheral 10/06/2024 1:04 AM #1 Blood culture-Peripheral site 1 Preliminary [id number] Peripheral --Vancomycin Concentrations-- Lab Results (Last 7 [...] for the consult. Jodi Ortiz PharmD Clinical Transition Mgr, Internal Medicine Preferred contact: [employer] [facility]o-Mh-Wpea Pager: [phone] October 09, 2024 8:29 AM * Eileen [...] at 10/08/2024 1:12 PM EDT US Duplex Pjp-Lhh-Anbyjrg Comp Final Result IMPRESSION: ABDOMEN 1. Cirrhotic [...] from outside facility. Will engage with them daily([phone]. Ask to speak to a tech) about [...] no head imaging has been performed at [facility]. -CT Head w/o contrast -Imaging showed [...] Questions: Select Supplement: Boost-1 kcal/ml supplement ([facility] only) Code Status: Full Code Signed: EILEEN [...] I reviewed the documentation by the medical team assistant and agree as documented. Any additions or clarifications are listed below. Daily plan was discussed with patient at bedside and questions addressed. Patient ID: Julien Gilbert is a 39 y.o. male currently admitted for Acute kidney injury superimposed on CKD ([facility]) Supplemental History/ ROS: No acute events overnight [...] for Acute kidney injury superimposed on CKD ([facility]) Active Problems: Anemia: S/p 1 unit PRBC from yesterday. Hemoglobin responded appropriately and remained stable. Will continue to monitor. Metabolic encephalopathy: Mostly resolved. Likely related to combination of hepatic, metabolic, andpossibly infectious insults. - Continue home lactulose and rifaximin Spontaneous Bacterial Peritonitis ([facility]): Cultures from OSH are growing gram- positive organisms.We continue to await speciation. He remains afebrile and vital signs have been stable. - Continue vancomycin and ceftriaxone for now. - Will follow-up on speciation and sensitivities. Decompensated cirrhosis ([facility]): Appreciate hepatology consult. He has started his [...] another specialty or practice, other licensed professional (PT/OT/INBOUND SALES CONSULTANT/RT), or a non-medical community professional: Nephrology, Hepatology Labs reviewed (1 pt each): CBC, CMP, INR & other daily labs Review of notes from a different specialty or different practice: Nephrology, Anesthesiology hepatology, * Gerri Peterson MD - 10/08/2024 1:40 PM EDT [facility] HEPATOLOGY PROGRESS NOTE Name: Julien Gilbert CSN: [id number] Consulted by: Fouzia Rene MD Reason for [...] nucleated cells, <2000 RBCs 10% Polynuclear, 90% Blount nuc. Fluid cultures reportedly grew gram + [...] 10/08/2024 9:18 AM EDT I have examined Juilen Gilbert and reviewed his records for evaluation [...] disease (ESRD) patient in a hospital based, [facility]-hospital based, or home setting. -At the time [...] I have discussed this plan with the family literacy coordinator and the liver transplant team. Cosigned [...] from the original note were not included. [facility] Clinical Pharmacy Service: Vancomycin Monitoring Consult [...] in sodium chloride 0.9 % 250 mL Qmsd1Pct 1,000 mg Once 10/08/2024 10/09/2024 Admin Instructions: Contact pharmacy if there is a question/concern of whether vancomycin should begiven based on serum drug levels. Use Ktuk2Tur Adapter - Mix Thoroughly Before Administration Route: [...] 10/07/2024 10:50 PM Giardia Cryptosporidium Antigens Final [id number] 10/07/2024 10:50 PM Ova and Parasite Comprehensive w/ Giardia/Crypto In process [id number] Feces 10/06/2024 1:04 AM #2 Blood culture-Peripheral site 2 Preliminary [id number] Peripheral 10/06/2024 1:04 AM #1 Blood culture-Peripheral site 1 Preliminary [id number] Peripheral --Vancomycin Concentrations-- Lab Results (Last 7 [...] for the consult. Jodi Ortiz PharmD Clinical Transition Mgr, Internal Medicine Preferred contact: [employer] [facility] Adjyjbw-Pe-Vino Pager: [phone] October 08, 2024 9:13 AM * Eileen [...] FREET4 0.74 09/03/2024 Diagnostic Studies US Duplex Uuj-Czu-Ikhrnjg Comp Final Result IMPRESSION: ABDOMEN 1. Cirrhotic [...] no head imaging has been performed at [facility]. -CT Head w/o contrast -Imaging showed [...] Questions: Select Supplement: Boost-1 kcal/ml supplement ([facility] only) Code Status: Full Code Signed: EILEEN [...] I reviewed the documentation by the medical team assistant and agree as documented. Any additions or [...] home lactulose and rifaximin Spontaneous Bacterial Peritonitis ([facility]): Cultures from OSH are growing gram- positive organisms.We continue to await speciation. He remains afebrile and vital signs have been stable. - Continue vancomycin and ceftriaxone for now. - Will follow-up on speciation and sensitivities. Decompensated cirrhosis ([facility]): Appreciate hepatology consult. He has started his [...] tomorrow NADIYA (acute kidney injury) on CKD ([facility]): Appreciate nephrology consult. Likely has hepatorenal syndrome. [...] Problem: Metabolic encephalopathy Active Problems: Decompensated cirrhosis ([facility]) Acute kidney injury superimposed on CKD ([facility]) Thrombocytopenia ([facility]) Renal mass, left Metabolic acidosis with normal anion gap and bicarbonate losses GERD (gastroesophageal reflux disease) Anemia SBP (spontaneous bacterial peritonitis) ([facility]) Neck pain with history of cervical spinal [...] another specialty or practice, other licensed professional (PT/OT/INBOUND SALES CONSULTANT/RT), or a non-medical community professional: Nephrology, [...] Strictly monitor urine output No Indication for TUBE REPAIRER Not a candidate for terlipressin per liver due to HE, liver ans kidney failure, on midodrine tid Liver transplant workup per GI/ Primary team, considering for SLK Thank you for allowing us to participate in this patient's care. Discussed with Consult Staff. Ignacio Queen MD Renal Fellow Pager # [phone] Chief Complaint No chief complaint on file. [...] concern for hepatorenal syndrome.` Patient came from [facility], paracentesis was performed yesterday on 10/05? [...] TIBC , FERRITIN No results found for: [id number] , FOLATE Lab Results Component Value Date [...] <15 No results found for: MICROALBUR , [id number] In addition to the above an extensive [...] 4.0 10/08/2024 Lab Results Component Value Date PPJO26A 7.1 (L) 10/08/2024 PLAN Continue IV albumin [...] AM Colten Huertas MD, KISHOR LIN FNKF chief technology officer Div. of Nephrology [facility] E-mail: [email or web address] This note was completely edited, written [...] from the original note were not included. [facility] Clinical Pharmacy Service: Vancomycin Monitoring Consult [...] AM #2 Blood culture-Peripheral site 2 Preliminary [id number] Peripheral 10/06/2024 1:04 AM #1 Blood culture-Peripheral site 1 Preliminary [id number] Peripheral --Vancomycin Concentrations-- Lab Results (Last 7 [...] for the consult. Jodi Ortiz PharmD Clinical Transition Mgr, Internal Medicine Preferred contact: [employer] [facility] Bsvistf-Vq-Csxt Pager: [phone] October 07, 2024 5:01 PM * Yamile Paige, PT - 10/07/2024 11:45 AM EDT Physical Therapy Initial Assessment and Discharge Name: Julien Gilbert : 1985 Attending Physician: Fouzia Rene MD Admission Diagnosis: AMS Date: 10/07/2024 Room: [facility] Reviewed Pertinent hospital course: Yes Hospital Course [...] Peterson MD - 10/07/2024 11:33 AM EDT [facility] HEPATOLOGY PROGRESS NOTE Name: Julien Gilbert CSN: [id number] Consulted by: Fouzia Rene MD Reason for [...] nucleated cells, <2000 RBCs 10% Polynuclear, 90% Blount nuc. Fluid cultures reportedly grewgram + rods. [...] in liver selection meeting and clearance by adoption social worker. Please order CT cardiac coronary evaluation, transplant [...] Strictly monitor urine output No Indication for TUBE REPAIRER Liver transplant workup per GI/ Primary team Thank you for allowing us to participate in this patient's care. Discussed with Consult Staff. Ignacio Queen MD Renal Fellow Pager # [phone] Chief Complaint No chief complaint on file. [...] concern for hepatorenal syndrome.` Patient came from [facility], paracentesis was performed yesterday on 10/05? [...] TIBC , FERRITIN No results found for: [id number] , FOLATE Lab Results Component Value Date [...] <15 No results found for: MICROALBUR , [id number] In addition to the above an extensive [...] PHOS 4.2 10/07/2024 No results found for: BHGG93F PLAN Continue IV albumin Monitor renal panel [...] AM Colten Huertas MD, KISHOR LIN FNKF chief technology officer Div. of Nephrology [facility] E-mail: [email or web address] * Carmen Bernal OT - 10/07/2024 [...] at 10/06/2024 2:33 AM EDT US Duplex Kxv-Cjm-Vzevwby Comp (Results Pending) US Abdomen Complete (Results [...] no head imaging has been performed at [facility]. -CT Head w/o contrast -Imaging showed [...] Questions: Select Supplement: Boost-1 kcal/ml supplement ([facility] only) Code Status: Full Code Signed: EILEEN [...] I reviewed the documentation by the medical team assistant and agree as documented. Any additions or [...] and mental status is improving. Decompensated cirrhosis ([facility]): Appreciate hepatology consult. He has started his transplant evaluation as an outpatient. We will follow-up with hepatology to discuss any inpatient testing that may need to be needed. - MELD labs daily - Continue home regimen with ursodiol, rifaximin and lactulose NADIYA (acute kidney injury) ([facility]): Appreciate nephrology consult. Likely has hepatorenal syndrome. [...] needed for pain. Continue to monitor. Thrombocytopenia ([facility]) Renal mass, left CKD (chronic kidney disease) stage 4, GFR 15-29 ml/min ([facility]) Metabolic acidosis with normal anion gap and [...] another specialty or practice, other licensed professional (PT/OT/INBOUND SALES CONSULTANT/RT), or a non-medical community professional: Nephrology, Hepatology Labs reviewed (1 pt each): CMP, CBC Test results reviewed (1 pt each): CXR, Head CT Review of notes from a different specialty or different practice: Nephrology, hepatology Use of parenteral controlled substances * Kiet Gardiner, PharmD - 10/06/2024 1:07 PM EDT Images from the original note were not included. [facility] Clinical Pharmacy Service: Vancomycin Monitoring Consult [...] AM #2 Blood culture-Peripheral site 2 Preliminary [id number] Peripheral 10/06/2024 1:04 AM #1 Blood culture-Peripheral site 1 Preliminary [id number] Peripheral --Vancomycin Concentrations-- Lab Results (Last 7 [...] US Retroperitoneal complete (Results Pending) US Duplex Etk-Rcl-Mrfxvty Comp (Results Pending) CT Head WO contrast [...] PM EDT Hospital Medicine Attending Supervision Note [facility] Juilen Gilbert was seen 10/06/24 on rounds with [...] MD - 10/05/2024 2:42 PM EDT [facility] Department of Medicine TRANSFER CALL NOTE Location [facility] ED History of Present Illness Julien Gilbert [...] ED, with plan to transfer to [facility] if needing admission. In the ED, pt [...] Studies: Na 129 K 4.2 Cl 101 Ofyoiy40 BUN 62 (up from baseline) Cr 3.6 [...] Quan MD - 10/14/2024 1:10 PM EDT [facility] PRE-SEDATION ASSESSMENT, HISTORY & PHYSICAL Date: 10/14/2024 [...] Neuro: AOx3 AUC For Cath Indication(s) for Manufacturers Agent Visit: Visit Indicators: Suspected CAD 2. Chest Pain Symptom Assessment: Asymptomatic 3. Heart Failure: Yes Class II 4. CHSA Clinical Frailty Scale: Mildly Frail Sedation Plan: Moderate Sedation with Local Anesthesia Antibiotic prophylaxis is not indicated. Mani Quan Interventional Distribution Technician Pager: [phone] [1] Patient Active Problem List Diagnosis Decompensated [...] Peterson MD - 10/10/2024 10:05 AM EDT [facility] PRE-SEDATION ASSESSMENT, HISTORY & PHYSICAL Date: 10/10/2024 [...] and have discussed the case with Dr. Peetrson, agree with his note and confirm it. [...] Resource Strain: Low Risk (07/09/2024) Received from [facility] Overall Financial Resource Strain (CARDIA) Difficulty [...] No Physical Activity: Unknown (07/14/2024) Received from [facility] Exercise Vital Sign Days of Exercise per Week: Patient unable to answer Minutes of Exercise per Session: Not on file Stress: Patient Unable To Answer (07/14/2024) Received from [facility] [employer] [place] [employer] - Occupational Stress Questionnaire Feeling of Stress : Patient unable to answer Social Connections: Patient Unable To Answer (07/14/2024) Received from [facility] Social Connection and Isolation Panel [NHANES] Frequency of Communication with Friends and Family: Patient unable to answer Frequency of Social Gatherings with Friends and Family: Patient unable to answer Attends Voodoo Services: Patient unable to answer Active Member [...] zinc sulfate 220 mg Daily 0900 Bisi Hernandez DO 220 mg at 10/09/24 0802 [...] values in this interval not displayed. Imaging: @[id number]@ I have personally reviewed the imaging and have noted the following: Large recanalized umbilical vein Perihilar varices Replaced right hepatic artery Splenomegaly Spontaneous splenorenal shunt Large volume ascites, No portal vein thrombosis Assessment/Plan: A 39 y.o. male with ETOH decompensated by ascites, hepatic encephalopathy,bleeding esophageal Varices. Use and allocation of SCD, CASING CREW, DCD and LDLT allografts discussed in detail. [...] from surgery (5%). I also explained the intermediate card tender risks of transplantation and immunosuppression including viral infection and cancer both solid organand lymphoma. Kemar Sahni MD, Fellow, Multiorgan Abdominal Transplant Surgery. [facility]. 10/09/2024 3:16 PM [1] Allergies Allergen Reactions [...] Ortiz MD - 10/06/2024 12:00 AM EDT [facility] Internal Medicine - History and Physical Chief [...] taken to Radiology overnight for imaging upload. [facility] performed a bedside paracentesis and sent studies for SBP analysis. Willcontact [facility] to see if labs have resulted. Review of Systems 14 pt ROS conducted and negative aside from that mentioned in above HPI Past Medical and Social History Lives in [place], [place] at bedside Notes that the patient [...] Repeat labs pending on admission to [facility] Assessment & Plan Juline Gilbert is a 39 y.o. male with [...] AM EDT Hospital Medicine Attending Supervision Note [facility] // [facility] Julien Gilbert was seen 10/06/24 on [...] confusion and lethargy. HE was seen at [facility] ED were CT head unremarkable and RUQ with gallstones, abdominal ascites diagnostic para done and started on empiric CTX. Labs remarkable at OSH for K 4.2 Cl 101 Cznjdy18 BUN 62 (up from baseline) Cr 3.6 baseline 2.3-2.4 AST 78 ALT 43 T bili 13 Supplemental Exam: AAOX1 Awake and follows commands No asterixis on exam Distended abdomen with fluid shift and ascites Trace edema at the ankles Assessment & Plan Juline Gilbert is a 39 y.o. male on [...] another specialty or practice, other licensed professional (PT/OT/INBOUND SALES CONSULTANT/RT), or a non-medical community professional: ed [...] Medicine Department of Internal Medicine Pager ID: [phone] 6:04 AM, 10/06/2024 documented in this encounter [...] Vascular & Interventional Radiology 10/10/2024,1:55 PM [facility]: [phone]) * Lino Soto MD - 10/10/2024 12:06 PM EDT EGD Brief Op Note Julien Gilbert 10/05/2024 - 10/10/2024 Pre-op Diagnosis: Alcoholic cirrhosis of liver with ascites (CMS-HCC) [K70.31] Post-op Diagnosis: Portal gastropathy, Medium size, non-bleeding esophageal varices Procedure(s): EGD Surgeon(s): Lino Soto MD Anesthesia: MAC (Monitor Anesthesia Care) Staff: Fellow: Gerri Peterson MD Endoscopy Nurse: Kandice Castaneda, RN Computer Numerical Control Machinist: Diana Kemp Estimated Blood Loss: Minimal Specimens: Drains: There were no complications unless listed below. LINO SOTO MD Date: 10/10/2024 Time: 12:18 PM * Lino Soto MD - 10/10/2024 11:48 AM EDT [id number] Procedure Date: 10/10/2024 11:48 AM Patient Name: Julien Gilbert Date of : 1985 Admit Type: Inpatient Age: 39 Gender: Male Note Status: Finalized Attending MD: Lino Soto MD, [id number] Procedure: Upper GI endoscopy Indications: Gastroesopahgeal variceal [...] verified by the physician, the nurse, the manager brand and the computer repair technician in the pre-procedure area in the [...] to hypotension Procedure Code(s): --- Professional --- 26179, GC, Esophagogastroduodenoscopy, flexible, transoral; diagnostic, including collection of specimen(s) by brushing or washing, when performed (separate procedure) Diagnosis Code(s): --- Professional --- I85.00, Esophageal varices without bleeding K76.6, Portal hypertension K31.89, Other diseases of stomach and duodenum CPT copyright 2022 [employer]. All rights reserved. The codes documented in this report are preliminary and upon pre k special education teacher review may be revised to meet current [...] In: 12:10:16 PM Scope Out: 12:17:[address] [place] [address], [facility] * Gill Le RN - 10/09/2024 [...] this time. 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 Describes significant anxiety that occasionally limits his ability to drive, and stated he has to rack puller occasionally to collect himself, thought denied [...] need for sleep. Has not been on Stroho for mental health since stopping the cymbalta. [...] mother is and his father resides in [facility]. Patient earned a graduate degree and never served in the . 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 He was raised [employer] and denied current engagement in any community [...] or other abnormalities Cognition/Memory: short term and intermediate card tender memory intact. Attention and concentration: is not [...] from the original note were not included. [facility] General Cardiology Consult Note Referring Physician: Fouzia [...] at baseline or with provocation, shows no xpcok-bp-yzlh atrial level shunt. - Pulmonary arteries: Systolic [...] with Cardiology can be scheduled by calling [phone]. Thank you for the opportunity to participate in this patient's care. Please call orpage with any questions. Leonor Garcia MD Distribution Technician I have personally seen, examined, reviewed all [...] 0659 10/11/24 0700 - 10/12/24 0659 Shift 1613-2186 6589-4738 24 Hour Total 3025-4619 0141-7922 5847-6963 24 Hour Total INTAKE P.O. 2926 690 5715 P[address]O. 5403 381 5033 Boost (mL) - [facility] only 240 240 I.V.(mL/kg) 450(3.8) Volume (mL) [...] (See Comments) Became Manic * Bakari Wahl, [facility] - 10/10/2024 10:07 AM EDT Interventional Radiology [...] Vascular & Interventional Radiology 10/10/2024,1:54 PM [facility]: [phone]) [1] Social History Tobacco Use Smoking Status [...] EDTAssociated Order(s): IP CONSULT TO INFECTIOUS DISEASES [facility] DEPARTMENT OF INFECTIOUS DISEASE INITIAL NOTE Referring Physician: Fouzia Rene MD Consult Attending: Daria Garcia Patient: Julien Gilbert CSN: [id number] Reason for Consult: CC: Abx management History [...] HE. He was born [place] [facility] . No travel to the [facility]. He is a physical [...] Resource Strain: Low Risk (07/09/2024) Received from [facility] Overall Financial Resource Strain (CARDIA) Difficulty [...] No Physical Activity: Unknown (07/14/2024) Received from [facility] Exercise Vital Sign Days of Exercise per Week: Patient unable to answer Minutes of Exercise per Session: Not on file Stress: Patient Unable To Answer (07/14/2024) Received from [facility] [place] [facility] Occupational [facility] - Occupational Stress Questionnaire Feeling of Stress : Patient unable to answer Social Connections: Patient Unable To Answer (07/14/2024) Received from [facility] Social Connection and Isolation Panel [NHANES] Frequency of Communication with Friends and Family: Patient unable to answer Frequency of Social Gatherings with Friends and Family: Patient unable to answer Attends Voodoo Services: Patient unable to answer Active Member [...] day. Qty: 60 tablet, Refills: 0 Comments: [facility] [place] [address] sodium bicarbonate 650 MG tablet Take 2 [...] Aphasia [R47.01] 10/06/2024 SBP (spontaneous bacterial peritonitis) ([facility]) [K65.2] 09/08/2024 Metabolic acidosis with normal anion gap and bicarbonate losses [E87.20] 09/03/2024 CKD (chronic kidney disease) stage 4, GFR 15-29 ml/min ([facility]) [N18.4] 09/03/2024 GERD (gastroesophageal reflux disease) [K21.9] 09/03/2024 Renal mass, left [N28.89] 08/18/2024 Thrombocytopenia ([facility]) [D69.6] Decompensated cirrhosis ([facility]) [K72.90, K74.60] 07/25/2024 NADIYA (acute kidney injury) ([facility]) [N17.9] 07/25/2024 Resolved Hospital Problems [...] Resource Strain: Low Risk (07/09/2024) Received from [facility] Overall Financial Resource Strain (CARDIA) Difficulty [...] No Physical Activity: Unknown (07/14/2024) Received from [facility] Exercise Vital Sign Days of Exercise per Week: Patient unable to answer Minutes of Exercise per Session: Not on file Stress: Patient Unable To Answer (07/14/2024) Received from [facility] [place] [facility] Occupational [facility] - Occupational Stress Questionnaire Feeling of Stress : Patient unable to answer Social Connections: Patient Unable To Answer (07/14/2024) Received from [facility] Social Connection and Isolation Panel [NHANES] Frequency of Communication with Friends and Family: Patient unable to answer Frequency of Social Gatherings with Friends and Family: Patient unable to answer Attends Voodoo Services: Patient unable to answer Active Member [...] is no recent study available for direct woxf-dx-gkjd comparison. Left Ventricle The left ventricle is [...] pressures < 35 mmHgon resting echo from [facility] 07/15/24. No ischemic workup noted. ECG [...] surgery with risk (OLT/OKT) Los Broussard MD, [facility] Department of Anesthesiology [1] Allergies Allergen Reactions Adhesive Itching and Rash Tegaderm adhesive on Ivs, pt states its tolerable Duloxetine Other (See Comments) Became Manic [2] Patient Active Problem List Diagnosis Decompensated cirrhosis (CMS-HCC) NADIYA (acute kidney injury) ([facility]) Alcohol use disorder Metabolic encephalopathy Hypertension Other hyperlipidemia Thrombocytopenia (CMS-HCC) Renal mass, left Abdominal pain Hypokalemia CKD (chronic kidney disease) stage 4, GFR 15-29 ml/min ([facility]) Metabolic acidosis with normal anion gap and bicarbonate losses GERD (gastroesophageal reflux disease) Hypothyroidism Itching Anemia BRBPR (bright red blood per rectum) SBP (spontaneous bacterial peritonitis) ([facility]) C Diff Diarrhea C. difficile diarrhea Aphasia [...] MD PCP: Enedina Mcguire NP Home Pharmacy: [facility] [address] [place] [id number] [facility] [address] [place] [id number] Issues related to obtaining medications: Payor Information Medical Insurance Coverage: Payor: [facility] / Plan: [facility] G[facility]BAL / Product Type: *No Producttype* / Secondary Payor: Functional Assessment Functional Assessment Assessment Information Obtained From:: Patient Current Mental Status: Awake, Oriented to Person, Oriented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 EDT 10/14/2024 8:33 AM EDT us Eleazar Nguyễn MD BLOOD BANK TEST ORDERAB LES Final Result Performing Organization Address [facility] Co de Phone Number [facility] [address] * (ABNORMAL) Protime-INR (10/14/2024 2:53 AM EDT) Protime 23.8(H) 12.1 - 15.1 seconds 10/14/2024 4:34 AM EDT [facility] INR 2.1(H) 0.9 - 1.1 10/14/2024 4:34 AM EDT [facility] Comment: RECOMMENDED THERAPEUTIC RANGES USING INR : Stable oral anticoagulant therapy: 2.0 - 3.0 Mechanical prosthetic heart valve: 2.5 - 3.5 Recurrent acute myocardial infarction: 2.5 - 3.5 Plasma 10/14/2024 2:53 AM EDT 10/14/2024 4:16 AM EDT Eileen Schroeder MD, PhD LAB BLOOD ORDERABLES Final Result Performing Organization Address City/[facility]/ZIP Co de Phone Number [facility] [address] * (ABNORMAL) Hepatic Function Panel (10/14/2024 2:53 AM EDT) Total Bilirubin 7.2(H) 0.0 - 1.5 mg/dL 10/14/2024 4:45 AM EDT [facility] Bilirubin, Direct 3.86(H) 0.00 - 0.40 mg/dL 10/14/2024 4:45 AM EDT [facility] AST 41(H) 13 - 39 U/L 10/14/2024 4:45 AM EDT [facility] ALT 22 7 - 52 U/L 10/14/2024 4:45 AM EDT [facility] Alkaline Phosphatase 119 36 - 125 U/L 10/14/2024 4:45 AM EDT [facility] Total Protein 4.6(L) 6.4 - 8.9 g/dL 10/14/2024 4:45 AM EDT [facility] Albumin 3.3(L) 3.5 - 5.7 g/dL 10/14/2024 4:45 AM EDT [facility] Bilirubin, Indirect 3.34(H) 0.00 - 1.10 mg/dL 10/14/2024 4:45 AM EDT [facility] Plasma 10/14/2024 2:53 AM EDT 10/14/2024 4:16 AM EDT Eileen Schroeder MD, PhD LAB BLOOD ORDERABLES Final Result Performing Organization Address [facility] Co de Phone Number [facility] [address] [facility]. [address] * Magnesium (10/14/2024 2:53 AM EDT) Magnesium 1.9 1.5 - 2.5 mg/dL 10/14/2024 4:45 AM EDT [facility] Plasma 10/14/2024 2:53 AM EDT 10/14/2024 4:16 AM EDT Eileen Schroeder MD, PhD LAB BLOOD ORDERABLES Final Result Performing Organization Address City/[facility] Co de Phone Number [facility] [address] [facility]. [place] [id number] * (ABNORMAL) Renal Function Panel w/EGFR (10/14/2024 2:53 AM EDT) Sodium 136 133 - 146 mmol/L 10/14/2024 4:45 AM EDT [facility] Potassium 3.5 3.5 - 5.3 mmol/L 10/14/2024 4:45 AM EDT [facility] Chloride 107 98 - 110 mmol/L 10/14/2024 4:45 AM EDT [facility] CO2 16(L) 21 - 33 mmol/L 10/14/2024 4:45 AM EDT [facility] Anion Gap 13 3 - 16 mmol/L 10/14/2024 4:45 AM EDT [facility] BUN 55(H) 7 - 25 mg/dL 10/14/2024 4:45 AM EDT [facility] Creatinine 3.01(H) 0.60 - 1.30 mg/dL 10/14/2024 4:45 AM EDT [facility] Glucose 95 70 - 100 mg/dL 10/14/2024 4:45 AM EDT [facility] Calcium 8.5(L) 8.6 - 10.3 mg/dL 10/14/2024 4:45 AM EDT [facility] Phosphorus 4.4 2.1 - 4.7 mg/dL 10/14/2024 4:45 AM EDT [facility] Albumin 3.3(L) 3.5 - 5.7 g/dL 10/14/2024 4:45 AM EDT [facility] Osmolality, Calculated 297 278 - 305 mOsm/kg 10/14/2024 4:45 AM EDT [facility] EGFR 26 10/14/2024 4:45 AM EDT [facility] Comment:As of 2021, the [...] MD, PhD LAB BLOOD ORDERABLES Final Result [facility] [address] [place] [address], [facility] * (ABNORMAL) CBC (10/14/2024 2:53 AM EDT) WBC 5.5 3.8 - 10.8 10E3/uL 10/14/2024 5:00 AM EDT [facility] RBC 2.09(L) 4.20 - 5.80 10E6/uL 10/14/2024 5:00 AM EDT [facility] Hemoglobin 7.6(L) 13.2 - 17.1 g/dL 10/14/2024 5:00 AM EDT [facility] Hematocrit 21.3(L) 38.5 - 50.0 % 10/14/2024 5:00 AM EDT [facility] MCV 101.7(H) 80.0 - 100.0 fL 10/14/2024 5:00 AM EDT [facility] MCH 36.3(H) 27.0 - 33.0 pg 10/14/2024 5:00 AM EDT [facility] MCHC 35.7 32.0 - 36.0 g/dL 10/14/2024 5:00 AM EDT [facility] RDW 17.6(H) 11.0 - 15.0 % 10/14/2024 5:00 AM EDT [facility] Platelets 35(L) 140 - 400 10E3/uL 10/14/2024 5:00 AM EDT [facility] Comment: Specimen checked for clots. None detected. Slide Reviewed for PLT Clumps. None Seen. MPV 8.5 7.5 - 11.5 fL 10/14/2024 5:00 AM EDT [facility] Whole Blood 10/14/2024 2:53 AM EDT 10/14/2024 4:17 AM EDT us Eileen Schroeder MD, PhD LAB BLOOD ORDERABLES Final Result [facility] [address] [place] [address], [facility] * Cardiac Cath Documents Scan (10/14/2024 2:06 [...] of GADOBUTROL 1 MMOL/ML [facility] ([facility]) administered intravenously COMPARISON: CT 09/03/2024. Ultrasound 10/07/2024. [...] of GADOBUTROL 1 MMOL/ML [facility] ([facility])administered intravenously COMPARISON: CT 09/03/2024. Ultrasound 10/07/2024. Outside [...] BLOOD ORDERABLES Final Result Performing Organization Address [facility] Co de Phone Number [facility] [address] [facility]. [address] * (ABNORMAL) Hepatic Function Panel (10/13/2024 5:35 AM EDT) Total Bilirubin 6.5(H) 0.0 - 1.5 mg/dL 10/13/2024 6:30 AM EDT [facility] Bilirubin, Direct 3.53(H) 0.00 - 0.40 mg/dL 10/13/2024 6:30 AM EDT [facility] AST 42(H) 13 - 39 U/L 10/13/2024 6:30 AM EDT [facility] ALT 19 7 - 52 U/L 10/13/2024 6:30 AM EDT [facility] Alkaline Phosphatase 108 36 - 125 U/L 10/13/2024 6:30 AM EDT [facility] Total Protein 4.4(L) 6.4 - 8.9 g/dL 10/13/2024 6:30 AM EDT [facility] Albumin 3.1(L) 3.5 - 5.7 g/dL 10/13/2024 6:30 AM EDT [facility] Bilirubin, Indirect 2.97(H) 0.00 - 1.10 mg/dL 10/13/2024 6:30 AM EDT [facility] Plasma 10/13/2024 5:35 AM EDT 10/13/2024 5:52 AM EDT us Eileen Schroeder MD, PhD LAB BLOOD ORDERABLES Final Result Performing Organization Address City/[facility] Co de Phone Number [facility] [address] [facility]. [address] * Magnesium (10/13/2024 5:35 AM EDT) Magnesium 2.0 1.5 - 2.5 mg/dL 10/13/2024 6:30 AM EDT [facility] Plasma 10/13/2024 5:35 AM EDT 10/13/2024 5:52 AM EDT Eileen Schroeder MD, PhD LAB BLOOD ORDERABLES Final Result [facility] [address] [place] [address], [facility] * (ABNORMAL) Renal Function Panel w/EGFR (10/13/2024 5:35 AM EDT) Sodium 134 133 - 146 mmol/L 10/13/2024 6:30 AM EDT [facility] Potassium 3.7 3.5 - 5.3 mmol/L 10/13/2024 6:30 AM EDT [facility] Chloride 109 98 - 110 mmol/L 10/13/2024 6:30 AM EDT [facility] CO2 14(L) 21 - 33 mmol/L 10/13/2024 6:30 AM EDT [facility] Anion Gap 11 3 - 16 mmol/L 10/13/2024 6:30 AM EDT [facility] BUN 54(H) 7 - 25 mg/dL 10/13/2024 6:30 AM EDT [facility] Creatinine 2.99(H) 0.60 - 1.30 mg/dL 10/13/2024 6:30 AM EDT [facility] Glucose 116(H) 70 - 100 mg/dL 10/13/2024 6:30 AM EDT [facility] Calcium 8.3(L) 8.6 - 10.3 mg/dL 10/13/2024 6:30 AM EDT [facility] Phosphorus 4.5 2.1 - 4.7 mg/dL 10/13/2024 6:30 AM EDT [facility] Albumin 3.1(L) 3.5 - 5.7 g/dL 10/13/2024 6:30 AM EDT [facility] Osmolality, Calculated 294 278 - 305 mOsm/kg 10/13/2024 6:30 AM EDT [facility] EGFR 26 10/13/2024 6:30 AM EDT [facility] Comment:As of 2021, the [...] MD, PhD LAB BLOOD ORDERABLES Final Result [facility] [address] * (ABNORMAL) CBC (10/13/2024 5:35 AM EDT) WBC 4.7 3.8 - 10.8 10E3/uL 10/13/2024 6:22 AM EDT [facility] RBC 2.06(L) 4.20 - 5.80 10E6/uL 10/13/2024 6:22 AM EDT [facility] Hemoglobin 7.4(L) 13.2 - 17.1 g/dL 10/13/2024 6:22 AM EDT [facility] Hematocrit 21.7(L) 38.5 - 50.0 % 10/13/2024 6:22 AM EDT [facility] MCV 105.4(H) 80.0 - 100.0 fL 10/13/2024 6:22 AM EDT [facility] MCH 35.9(H) 27.0 - 33.0 pg 10/13/2024 6:22 AM EDT [facility] MCHC 34.0 32.0 - 36.0 g/dL 10/13/2024 6:22 AM EDT [facility] RDW 18.5(H) 11.0 - 15.0 % 10/13/2024 6:22 AM EDT [facility] Platelets 35(L) 140 - 400 10E3/uL 10/13/2024 6:22 AM EDT [facility] Comment: CNV Specimen checked for clots. None detected. MPV 8.4 7.5 - 11.5 fL 10/13/2024 6:22 AM EDT [facility] Whole Blood 10/13/2024 5:35 AM EDT 10/13/2024 5:53 AM EDT us Eileen Schroeder MD, PhD LAB BLOOD ORDERABLES Final Result Performing Organization Address [facility] Co de Phone Number [facility] [address] [facility]. [address] * (ABNORMAL) Ammonia (10/13/2024 5:35 AM EDT) Ammonia 203(HH) 27 - 90 ug/dL 10/13/2024 7:16 AM EDT [facility] Comment: HEMOLYSIS EVIDENT. RESULTS MAY BE INFLUENCED. Critical Result [id number] Called to and read back by: KEY MELO RN at: 10/13/2024 07:15:55 by:NISREEN Plasma 10/13/2024 5:35 AM EDT 10/13/2024 6:19 AM EDT us Ehsaun Mays DO LAB BLOOD ORDERABLES Final Resul t Performing Organization Address [facility]/ZIP Co de Phone Number [facility] [address] [facility]. [address] * CARISA Rhythm Strip - Scan (10/12/2024 10:30 PM EDT) us Scanning [facility] SCAN DOCS - NO RESULTS Final Res ult * (ABNORMAL) Protime-INR (10/12/2024 5:44 AM EDT) Pathologist [facility] Protime 25.7(H) 12.1 - 15.1 seconds 10/12/2024 [...] BLOOD ORDERABLES Final Result [facility] [address] * (ABNORMAL) Hepatic Function Panel (10/12/2024 5:44 AM EDT) [facility] Total Bilirubin 6.5(H) 0.0 - 1.5 mg/dL 10/12/2024 6:29 AM EDT [facility] Bilirubin, Direct 3.64(H) 0.00 - 0.40 mg/dL 10/12/2024 6:29 AM EDT [facility] AST 40(H) 13 - 39 U/L 10/12/2024 6:29 AM EDT [facility] ALT 19 7 - 52 U/L 10/12/2024 6:29 AM EDT [facility] Alkaline Phosphatase 99 36 - 125 U/L 10/12/2024 6:29 AM EDT [facility] Total Protein 4.2(L) 6.4 - 8.9 g/dL 10/12/2024 6:29 AM EDT [facility] Albumin 3.1(L) 3.5 - 5.7 g/dL 10/12/2024 6:29 AM EDT [facility] Bilirubin, Indirect 2.86(H) 0.00 - 1.10 mg/dL 10/12/2024 6:29 AM EDT [facility] Plasma 10/12/2024 5:44 AM EDT 10/12/2024 5:58 AM EDT us Eileen Schroeder MD, PhD LAB BLOOD ORDERABLES Final Result Performing Organization Address City/[facility]/ZIP Co de Phone Number [facility] [address] * Magnesium (10/12/2024 5:44 AM EDT) Magnesium 1.9 1.5 - 2.5 mg/dL 10/12/2024 6:29 AM EDT [facility] Plasma 10/12/2024 5:44 AM EDT 10/12/2024 5:58 AM EDT us Eileen Schroeder MD, PhD LAB BLOOD ORDERABLES Final Result Performing Organization Address [facility] Co de Phone Number [facility] [address] * (ABNORMAL) Renal Function Panel w/EGFR (10/12/2024 5:44 AM EDT) Sodium 135 133 - 146 mmol/L 10/12/2024 6:29 AM EDT [facility] Potassium 3.7 3.5 - 5.3 mmol/L 10/12/2024 6:29 AM EDT [facility] Chloride 109 98 - 110 mmol/L 10/12/2024 6:29 AM EDT [facility] CO2 17(L) 21 - 33 mmol/L 10/12/2024 6:29 AM EDT [facility] Anion Gap 9 3 - 16 mmol/L 10/12/2024 6:29 AM EDT [facility] BUN 52(H) 7 - 25 mg/dL 10/12/2024 6:29 AM EDT [facility] Creatinine 2.94(H) 0.60 - 1.30 mg/dL 10/12/2024 6:29 AM EDT [facility] Glucose 121(H) 70 - 100 mg/dL 10/12/2024 6:29 AM EDT [facility] Calcium 8.5(L) 8.6 - 10.3 mg/dL 10/12/2024 6:29 AM EDT [facility] Phosphorus 4.6 2.1 - 4.7 mg/dL 10/12/2024 6:29 AM EDT [facility] Albumin 3.1(L) 3.5 - 5.7 g/dL 10/12/2024 6:29 AM EDT [facility] Osmolality, Calculated 295 278 - 305 mOsm/kg 10/12/2024 6:29 AM EDT [facility] EGFR 27 10/12/2024 6:29 AM EDT [facility] Comment:As of 2021, the [...] MD, PhD LAB BLOOD ORDERABLES Final Result [facility] [address] [place], [place] [address] * (ABNORMAL) CBC (10/12/2024 5:44 AM EDT) WBC 3.3(L) 3.8 - 10.8 10E3/uL 10/12/2024 7:06 AM EDT [facility] RBC 1.95(L) 4.20 - 5.80 10E6/uL 10/12/2024 7:06 AM EDT [facility] Hemoglobin 7.2(L) 13.2 - 17.1 g/dL 10/12/2024 7:06 AM EDT [facility] Hematocrit 19.7(L) 38.5 - 50.0 % 10/12/2024 7:06 AM EDT [facility] MCV 101.2(H) 80.0 - 100.0 fL 10/12/2024 7:06 AM EDT [facility] MCH 37.0(H) 27.0 - 33.0 pg 10/12/2024 7:06 AM EDT [facility] MCHC 36.5(H) 32.0 - 36.0 g/dL 10/12/2024 7:06 AM EDT [facility] RDW 17.6(H) 11.0 - 15.0 % 10/12/2024 7:06 AM EDT [facility] Platelets 30(L) 140 - 400 10E3/uL 10/12/2024 7:06 AM EDT [facility] Comment: Specimen checked for clots. None detected. Slide Reviewed for PLT Clumps. None Seen. Platelet Estimate Decreased 10/12/2024 7:06 AM EDT [facility] MPV 8.3 7.5 - 11.5 fL 10/12/2024 7:06 AM EDT [facility] Whole Blood 10/12/2024 5:44 AM EDT 10/12/2024 5:58 AM EDT Narrative [facility] - 10/12/2024 7:06 AM EDT Peripheral blood smear was scanned per review criteria approved by the laboratory medical charge entry specialist. us Eileen Schroeder MD, PhD LAB BLOOD ORDERABLES Final Result [facility] [address] [place] [id number] * CARISA Rhythm Strip - Scan (10/11/2024 [...] MD, PhD LAB BLOOD ORDERABLES Final Result [facility] [address] [place] [address], [facility] * (ABNORMAL) Hepatic Function Panel (10/11/2024 3:02 AM EDT) Total Bilirubin 7.3(H) 0.0 - 1.5 mg/dL 10/11/2024 3:38 AM EDT [facility] Bilirubin, Direct 3.85(H) 0.00 - 0.40 mg/dL 10/11/2024 3:38 AM EDT [facility] AST 39 13 - 39 U/L 10/11/2024 3:38 AM EDT [facility] ALT 20 7 - 52 U/L 10/11/2024 3:38 AM EDT [facility] Alkaline Phosphatase 88 36 - 125 U/L 10/11/2024 3:38 AM EDT [facility] Total Protein 4.5(L) 6.4 - 8.9 g/dL 10/11/2024 3:38 AM EDT [facility] Albumin 3.3(L) 3.5 - 5.7 g/dL 10/11/2024 3:38 AM EDT [facility] Bilirubin, Indirect 3.45(H) 0.00 - 1.10 mg/dL 10/11/2024 3:38 AM EDT [facility] Plasma 10/11/2024 3:02 AM EDT 10/11/2024 3:08 AM EDT us Eileen Schroeder MD, PhD LAB BLOOD ORDERABLES Final Result [facility] [address] * Magnesium (10/11/2024 3:02 AM EDT) Magnesium 2.0 1.5 - 2.5 mg/dL 10/11/2024 3:38 AM EDT [facility] Plasma 10/11/2024 3:02 AM EDT 10/11/2024 3:08 AM EDT us Eileen Schroeder MD, PhD LAB BLOOD ORDERABLES Final Result Performing Organization Address [facility] Co de Phone Number [facility] [address] * (ABNORMAL) Renal Function Panel w/EGFR (10/11/2024 3:02 AM EDT) Sodium 134 133 - 146 mmol/L 10/11/2024 3:38 AM EDT [facility] Potassium 3.6 3.5 - 5.3 mmol/L 10/11/2024 3:38 AM EDT [facility] Chloride 108 98 - 110 mmol/L 10/11/2024 3:38 AM EDT [facility] CO2 16(L) 21 - 33 mmol/L 10/11/2024 3:38 AM EDT [facility] Anion Gap 10 3 - 16 mmol/L 10/11/2024 3:38 AM EDT [facility] BUN 49(H) 7 - 25 mg/dL 10/11/2024 3:38 AM EDT [facility] Creatinine 2.77(H) 0.60 - 1.30 mg/dL 10/11/2024 3:38 AM EDT [facility] Glucose 112(H) 70 - 100 mg/dL 10/11/2024 3:38 AM EDT [facility] Calcium 8.9 8.6 - 10.3 mg/dL 10/11/2024 3:38 AM EDT [facility] Phosphorus 3.5 2.1 - 4.7 mg/dL 10/11/2024 3:38 AM EDT [facility] Albumin 3.3(L) 3.5 - 5.7 g/dL 10/11/2024 3:38 AM EDT [facility] Osmolality, Calculated 292 278 - 305 mOsm/kg 10/11/2024 3:38 AM EDT [facility] EGFR 29 10/11/2024 3:38 AM EDT [facility] Comment:As of 2021, the [...] MD, PhD LAB BLOOD ORDERABLES Final Result [facility] [address] * (ABNORMAL) CBC (10/11/2024 3:02 AM EDT) WBC 4.0 3.8 - 10.8 10E3/uL 10/11/2024 3:55 AM EDT [facility] RBC 2.11(L) 4.20 - 5.80 10E6/uL 10/11/2024 3:55 AM EDT [facility] Hemoglobin 7.7(L) 13.2 - 17.1 g/dL 10/11/2024 3:55 AM EDT [facility] Hematocrit 21.2(L) 38.5 - 50.0 % 10/11/2024 3:55 AM EDT [facility] MCV 100.5(H) 80.0 - 100.0 fL 10/11/2024 3:55 AM EDT [facility] MCH 36.4(H) 27.0 - 33.0 pg 10/11/2024 3:55 AM EDT [facility] MCHC 36.2(H) 32.0 - 36.0 g/dL 10/11/2024 3:55 AM EDT [facility] RDW 17.9(H) 11.0 - 15.0 % 10/11/2024 3:55 AM EDT [facility] Platelets 32(L) 140 - 400 10E3/uL 10/11/2024 3:55 AM EDT [facility] Comment: Specimen checked for clots. None detected. Slide Reviewed for PLT Clumps. None Seen. Platelet Estimate Decreased 10/11/2024 3:55 AM EDT [facility] MPV 8.1 7.5 - 11.5 fL 10/11/2024 3:55 AM EDT [facility] Whole Blood 10/11/2024 3:02 AM EDT 10/11/2024 3:08 AM EDT Narrative [facility] - 10/11/2024 3:55 AM EDT Peripheral blood smear was scanned per review criteria approved by the laboratory medical charge entry specialist. us Eileen Schroeder MD, PhD LAB BLOOD ORDERABLES Final Result Performing Organization Address [facility]/State/[facility] Co de Phone Number [facility] [address] * Vancomycin, random (10/11/2024 3:02 AM EDT) Vancomycin Random 13.4 ug/mL 10/11/2024 3:37 AM EDT [facility] Comment:Reference range not established for this test. Plasma 10/11/2024 3:02 AM EDT 10/11/2024 3:08 AM EDT us Jodi FreireD LAB BLOOD ORDERABLES Final Result [facility] [address] [place] [address], [facility] * IR Paracentesis incl imaging guide (10/10/2024 [...] diagnostic and therapeutic paracentesis. Bakari Wahl CNP, Dialysis Tech Procedure and Findings: The procedure was performed [...] Using ultrasound guidance, a 10 cm, 5-F Cog[employer] Groupesis catheter was placed into the right lower [...] for diagnostic andtherapeutic paracentesis. Bakari Wahl CNP, Dialysis Tech Procedure and Findings: The procedure was performed [...] 10/10/2024 3:31 PM EDT Chari Vanegas MD [facility] IR ORDERABLES Final Result * Stress Testing Lab - scan (10/10/2024 3:08 PM EDT) Scanning [facility] SCAN DOCS - NO RESULTS Final Res ult * (ABNORMAL) Body fluid cell count (10/10/2024 1:51 PM EDT) Color, Fluid Yellow(A) Colorless, Pale Yellow 10/10/2024 5:29 PM EDT [facility] Clarity, Fluid Clear 10/10/2024 5:29 PM EDT [facility] Neutrophil %, Fluid 9 % 10/10/2024 5:29 PM EDT [facility] Lymphocytes %, Fluid 13 % 10/10/2024 5:29 PM EDT [facility] Mesothelial %, Fluid 6 % 10/10/2024 5:29 PM EDT [facility] Macrophage %, Fluid 72 % 10/10/2024 5:29 PM EDT [facility] RBC, Fluid 2,662 /uL 10/10/2024 4:41 PM EDT [facility] Total Nucleated Cells, Fluid 89 /uL 10/10/2024 4:41 PM EDT [facility] Comment:Total Nucleated Cell s represent WBCs and other nucleated cells in the fluid such as lining cells. Ascitic Fluid ABDOMEN / Unknown 1:51 PM EDT 10/10/2024 3:56 PM EDT Result [facility] Gerri Peterson MD BODY FLUIDS AND STOOLS ORDERABL ES Final Result Performing Organization Address [facility] de Phone Number [facility] [address] * Body Fluid Culture plus Stain (10/10/2024 1:51 PM EDT) Gram Stain Result Cytospin Results: [facility] Gram Stain Result Polymorphonuclear Leukocytes Seen; [facility] Gram Stain Result No Organisms Seen; [facility] Culture Result No Growth After [address] [facility] Fluid ABDOMEN / Unknown 10/10/2024 1:51 PM EDT 10/10/2024 3:56 PM EDT Result [facility] Gerri Peterson MD MICROBIOLOGY - GENERAL ORDERABL ES Final Result [facility] [address] [place] [address], [facility] * UPPER GI ENDOSCOPY (10/10/2024 11:48 AM EDT) 10/10/2024 11:4 8 AM EDT Narrative [facility] - 10/10/2024 12:34 PM EDT [id number] Procedure Date: 10/10/2024 11:48 AM Patient Name: Julien Gilbert Date of : 1985 Admit Type: Inpatient Age: 39 Gender: Male Note Status: Finalized Attending MD: Lino Soto MD, [id number] Procedure: Upper GI endoscopy Indications: Gastroesopahgeal variceal [...] verified by the physician, the nurse, the manager brand and the computer repair technician in the pre-procedure area in the [...] to hypotension Procedure Code(s): --- Professional --- 22858, GC, Esophagogastroduodenoscopy, flexible, transoral; diagnostic, including collection of specimen(s) by brushing or washing, when performed (separate procedure) Diagnosis Code(s): --- Professional --- I85.00, Esophageal varices without bleeding K76.6, Portal hypertension K31.89, Other diseases of stomach and duodenum CPT copyright 2022 [employer]. All rights reserved. The codes documented in this report are preliminary and upon pre k special education teacher review may be revised to meet current [...] In: 12:10:16 PM Scope Out: 12:17:[address] [place] [address], [id number] us Provider Not In System PROCEDURE/MINOR SURGICAL ORDERABLES Final Result Performing Organization Address City/[facility] Co de Phone Number [facility] * (ABNORMAL) Protime-INR (10/10/2024 5:23 AM EDT) Protime 23.9(H) 12.1 - 15.1 seconds 10/10/2024 6:11 AM EDT [facility] INR 2.1(H) 0.9 - 1.1 10/10/2024 6:11 AM EDT [facility] Comment: RECOMMENDED THERAPEUTIC RANGES USING INR : Stable oral anticoagulant therapy: 2.0 - 3.0 Mechanical prosthetic heart valve: 2.5 - 3.5 Recurrent acute myocardial infarction: 2.5 - 3.5 Plasma 10/10/2024 5:23 AM EDT 10/10/2024 5:50 AM EDT Eileen Schroeder MD, PhD LAB BLOOD ORDERABLES Final Result Performing Organization Address City/[facility]/ZIP Co de Phone Number [facility] [address] [place] [address] [place] [address], [place] * (ABNORMAL) Hepatic Function Panel (10/10/2024 5:23 AM EDT) Total Bilirubin 8.6(H) 0.0 - 1.5 mg/dL 10/10/2024 6:21 AM EDT [facility] Bilirubin, Direct 4.65(H) 0.00 - 0.40 mg/dL 10/10/2024 6:21 AM EDT [facility] AST 40(H) 13 - 39 U/L 10/10/2024 6:21 AM EDT [facility] ALT 22 7 - 52 U/L 10/10/2024 6:21 AM EDT [facility] Alkaline Phosphatase 118 36 - 125 U/L 10/10/2024 6:21 AM EDT [facility] Total Protein 4.6(L) 6.4 - 8.9 g/dL 10/10/2024 6:21 AM EDT [facility] Albumin 3.3(L) 3.5 - 5.7 g/dL 10/10/2024 6:21 AM EDT [facility] Bilirubin, Indirect 3.95(H) 0.00 - 1.10 mg/dL 10/10/2024 6:21 AM EDT [facility] Plasma 10/10/2024 5:23 AM EDT 10/10/2024 5:50 AM EDT Eileen Schroeder MD, PhD LAB BLOOD ORDERABLES Final Result [facility] [address] * Magnesium (10/10/2024 5:23 AM EDT) Magnesium 1.9 1.5 - 2.5 mg/dL 10/10/2024 6:21 AM EDT [facility] Plasma 10/10/2024 5:23 AM EDT 10/10/2024 5:50 AM EDT Eileen Schroeder MD, PhD LAB BLOOD ORDERABLES Final Result [facility] [address] [place] [address], [facility] * (ABNORMAL) Renal Function Panel w/EGFR (10/10/2024 5:23 AM EDT) Sodium 135 133 - 146 mmol/L 10/10/2024 6:21 AM EDT [facility] Potassium 3.6 3.5 - 5.3 mmol/L 10/10/2024 6:21 AM EDT [facility] Chloride 108 98 - 110 mmol/L 10/10/2024 6:21 AM EDT [facility] CO2 17(L) 21 - 33 mmol/L 10/10/2024 6:21 AM EDT [facility] Anion Gap 10 3 - 16 mmol/L 10/10/2024 6:21 AM EDT [facility] BUN 53(H) 7 - 25 mg/dL 10/10/2024 6:21 AM EDT [facility] Creatinine 2.85(H) 0.60 - 1.30 mg/dL 10/10/2024 6:21 AM EDT [facility] Glucose 113(H) 70 - 100 mg/dL 10/10/2024 6:21 AM EDT [facility] Calcium 9.0 8.6 - 10.3 mg/dL 10/10/2024 6:21 AM EDT [facility] Phosphorus 3.3 2.1 - 4.7 mg/dL 10/10/2024 6:21 AM EDT [facility] Albumin 3.3(L) 3.5 - 5.7 g/dL 10/10/2024 6:21 AM EDT [facility] Osmolality, Calculated 295 278 - 305 mOsm/kg 10/10/2024 6:21 AM EDT [facility] EGFR 28 10/10/2024 6:21 AM EDT [facility] Comment:As of 2021, the [...] MD, PhD LAB BLOOD ORDERABLES Final Result [facility] [address] * (ABNORMAL) CBC (10/10/2024 5:23 AM EDT) WBC 5.1 3.8 - 10.8 10E3/uL 10/10/2024 6:14 AM EDT [facility] RBC 2.04(L) 4.20 - 5.80 10E6/uL 10/10/2024 6:14 AM EDT [facility] Hemoglobin 7.3(L) 13.2 - 17.1 g/dL 10/10/2024 6:14 AM EDT [facility] Hematocrit 20.6(L) 38.5 - 50.0 % 10/10/2024 6:14 AM EDT [facility] MCV 101.2(H) 80.0 - 100.0 fL 10/10/2024 6:14 AM EDT [facility] MCH 36.0(H) 27.0 - 33.0 pg 10/10/2024 6:14 AM EDT [facility] MCHC 35.5 32.0 - 36.0 g/dL 10/10/2024 6:14 AM EDT [facility] RDW 17.6(H) 11.0 - 15.0 % 10/10/2024 6:14 AM EDT [facility] Platelets 39(L) 140 - 400 10E3/uL 10/10/2024 6:14 AM EDT [facility] Comment: CNV Specimen checked for clots. None detected. MPV 9.8 7.5 - 11.5 fL 10/10/2024 6:14 AM EDT [facility] Whole Blood 10/10/2024 5:23 AM EDT 10/10/2024 5:51 AM EDT us Eileen Schroeder MD, PhD LAB BLOOD ORDERABLES Final Result Performing Organization Address [facility]/ZIP Co de Phone Number [facility] [address] [place] [address] * Vancomycin, random (10/10/2024 5:23 AM EDT) Vancomycin Random 16.4 ug/mL 10/10/2024 6:22 AM EDT [facility] Comment:Reference range not established for this test. Plasma 10/10/2024 5:23 AM EDT 10/10/2024 5:51 AM EDT us Jodi FreireD LAB BLOOD ORDERABLES Final Result Performing Organization Address [facility] de Phone Number [facility] [address] [place] [address] * ECHO STRESS W/ CONTRAST (10/09/2024 4:37 PM EDT) Anatomical Region Laterality Modality Chest Ultrasound 10/09/2024 2:40 PM EDT Narrative 10/09/2024 6:45 PM EDT * [facility]* [address] [place] [address] Stress Echocardiogram Patient: Julien Gilbert Room: 8142 Height: 76in MR Number: [id number] : 1985 Weight: 262lb Account: [id number] Gender: M BP: 125 / 77 Study Date: 10/09/2024 Age: 39 BSA: 2.48m^2 Referring physician: Gerri Peterson Interpreting physician: Tonya Henriquez MD FELLOW Lisa Jha MD PERFORMING Tonya Henriquez MD GAS LEAK INSPECTOR HELPER [employer] Askanda REFERRING Gerri Peterson ATTENDING [...] was augmented by the addition of hand peanut farmer and leg lifts. The infusion was terminated [...] at baseline or with provocation, shows no arijx-yq-ibct atrial level shunt. - Pulmonary arteries: Systolic [...] at baseline or with provocation, shows no jrdhy-kc-cbyo atrial level shunt. Pulmonary artery: - Systolic [...] at baseline or with provocation, shows no mjlta-rs-jyzg atrial level shunt. Pericardium: - There is [...] peak heart rate and blood pressure was [id number] Hg/min. Stress testing did not produce any [...] Reviewed and confirmed by Tonya Henriquez MD [id number] Procedure Note Tonya Henriquez MD - 10/09/2024 * [facility]* [address] [place] [address] Stress Echocardiogram Patient: Julien Gilbert Room: 8142 Height: 76in MR Number: [id number] : 1985 Weight: 262lb Account: [id number] Gender: M BP: 125 / 77 Study Date: 10/09/2024 Age: 39 BSA: 2.48m^2 Referring physician: Gerri Peterson Interpreting physician: Tonya Henriquez MD FELLOW Lisa Jha MD PERFORMING Tonya Henriquez MD GAS LEAK INSPECTOR HELPER [employer] ORDERING Gerri Peterson REFERRING Gerri Peterson ATTENDING Fouzia Rene ADMITTING Angie Blanchard Procedure:STRESS ECHO - PHARMACOLOGIC Order: Indications: Pre-Operative Clearance (Z01.818). PMH: EtOH Use Disorder. Risk factors: Hypertension. Dyslipidemia. Study data: Height: 76in. 193cm. Weight: 262lb. 118.8kg. The previousstudy was not available, so comparison was made to the report of 07/15/2024. Study status: Routine. [facility]. 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 The infusion was terminated [...] at baseline or with provocation, shows no yvmrp-cw-fsgy atrial level shunt. - Pulmonary arteries: Systolic [...] study at baseline or with provocation, showsno aigcr-ma-nhnd atrial level shunt. Pulmonary artery: - Systolic [...] at baseline or with provocation, shows no ceven-ok-miwn atrial level shunt. Pericardium: - There is [...] heart rate). The maximal predicted heart rate [id number]. The target heart rate was 152bpm. The target heart rate was achieved.The heart rate response to stress is normal. There is a normal resting blood pressure with an appropriate response to stress. The rate-pressureproduct for the peak heart rate and blood pressure was 69157ge Hg/min. Stress testing did not produce any [...] Reviewed and confirmed by Tonya Henriquez MD [id number] us Gerri Peterson MD CV ECHO ORDERABLES Final Result * (ABNORMAL) Renal Function Panel w/EGFR, STAT (10/09/2024 1:05 PM EDT) Sodium 134 133 - 146 mmol/L 10/09/2024 2:10 PM EDT [facility] Potassium 3.7 3.5 - 5.3 mmol/L 10/09/2024 2:10 PM EDT [facility] Chloride 105 98 - 110 mmol/L 10/09/2024 2:10 PM EDT [facility] CO2 17(L) 21 - 33 mmol/L 10/09/2024 2:10 PM EDT [facility] Anion Gap 12 3 - 16 mmol/L 10/09/2024 2:10 PM EDT [facility] BUN 53(H) 7 - 25 mg/dL 10/09/2024 2:10 PM EDT [facility] Creatinine 2.89(H) 0.60 - 1.30 mg/dL 10/09/2024 2:10 [address]T [facility] Glucose 108(H) 70 - 100 mg/dL 10/09/2024 2:10 [address] EDT [facility] Calcium 9.3 8.6 - 10.3 mg/dL 10/09/2024 2:10 [address] EDT [facility] Phosphorus 3.4 2.1 - 4.7 mg/dL 10/09/2024 2:10 [address] EDT [facility] Albumin 3.6 3.5 - 5.7 g/dL 10/09/2024 2:10 [address] EDT [facility] Osmolality, Calculated 293 278 - 305 mOsm/kg 10/09/2024 2:10 PM EDT [facility] EGFR 27 10/09/2024 2:10 PM EDT [facility] Comment:As of 2021, the [...] MD, PhD LAB BLOOD ORDERABLES Final Result [facility] [address] [place] [address], [facility] * (ABNORMAL) Renal Function Panel w/EGFR, STAT (10/09/2024 8:14 AM EDT) Sodium 134 133 - 146 mmol/L 10/09/2024 8:47 AM EDT [facility] Potassium 3.4(L) 3.5 - 5.3 mmol/L 10/09/2024 8:47 AM EDT [facility] Chloride 107 98 - 110 mmol/L 10/09/2024 8:47 AM EDT [facility] CO2 17(L) 21 - 33 mmol/L 10/09/2024 8:47 AM EDT [facility] Anion Gap 10 3 - 16 mmol/L 10/09/2024 8:47 AM EDT [facility] BUN 54(H) 7 - 25 mg/dL 10/09/2024 8:47 AM EDT [facility] Creatinine 3.04(H) 0.60 - 1.30 mg/dL 10/09/2024 8:47 AM EDT [facility] Glucose 124(H) 70 - 100 mg/dL 10/09/2024 8:47 AM EDT [facility] Calcium 9.0 8.6 - 10.3 mg/dL 10/09/2024 8:47 AM EDT [facility] Phosphorus 3.5 2.1 - 4.7 mg/dL 10/09/2024 8:47 AM EDT [facility] Albumin 3.4(L) 3.5 - 5.7 g/dL 10/09/2024 8:47 AM EDT [facility] Osmolality, Calculated 294 278 - 305 mOsm/kg 10/09/2024 8:47 AM EDT [facility] EGFR 26 10/09/2024 8:47 AM EDT [facility] Comment:As of 2021, the [...] ORDERABLES Final Resu lt Performing Organization Address [facility]/ZIP Co de Phone Number [facility] [address] [place] [address] * Prepare RBC, leukoreduced, 1 Units (10/09/2024 6:16 AM EDT) Product Code [id number] [facility] Unit Number [id number] HCLL Dispense Status Presumed Transfused_PT HCLL Blood Expiration Date [id number] [facility] Coding System [id number] [facility] Blood Bank Product Eileen Schroeder MD, PhD BLOOD BANK PRODUCT OR DERABLES Final Result HC[facility] * (ABNORMAL) Protime-INR (10/09/2024 4:59 AM EDT) Protime 26.5(H) 12.1 - 15.1 seconds 10/09/2024 6:30 AM EDT [facility] INR 2.4(H) 0.9 - 1.1 10/09/2024 6:30 AM EDT [facility] Comment: RECOMMENDED THERAPEUTIC RANGES USING INR : Stable oral anticoagulant therapy: 2.0 - 3.0 Mechanical prosthetic heart valve: 2.5 - 3.5 Recurrent acute myocardial infarction: 2.5 - 3.5 Plasma 10/09/2024 4:59 AM EDT 10/09/2024 5:55 AM EDT Eileen Schroeder MD, PhD LAB BLOOD ORDERABLES Final Result Performing Organization Address City/[facility]/ZIP Co de Phone Number [facility] [address] [facility]. [address] * (ABNORMAL) Hepatic Function Panel (10/09/2024 4:59 AM EDT) Total Bilirubin 9.0(H) 0.0 - 1.5 mg/dL 10/09/2024 6:42 AM EDT [facility] Bilirubin, Direct 4.60(H) 0.00 - 0.40 mg/dL 10/09/2024 6:42 AM EDT [facility] AST 38 13 - 39 U/L 10/09/2024 6:42 AM EDT [facility] ALT 18 7 - 52 U/L 10/09/2024 6:42 AM EDT [facility] Alkaline Phosphatase 122 36 - 125 U/L 10/09/2024 6:42 AM EDT [facility] Total Protein 4.8(L) 6.4 - 8.9 g/dL 10/09/2024 6:42 AM EDT [facility] Albumin 3.4(L) 3.5 - 5.7 g/dL 10/09/2024 6:42 AM EDT [facility] Bilirubin, Indirect 4.40(H) 0.00 - 1.10 mg/dL 10/09/2024 6:42 AM EDT [facility] Plasma 10/09/2024 4:59 AM EDT 10/09/2024 5:57 AM EDT Eileen Schroeder MD, PhD LAB BLOOD ORDERABLES Final Result Performing Organization Address City/[facility]/ZIP Co de Phone Number [facility] [address] [place] [facility]. [address] * Magnesium (10/09/2024 4:59 AM EDT) Magnesium 1.8 1.5 - 2.5 mg/dL 10/09/2024 6:42 AM EDT [facility] Plasma 10/09/2024 4:59 AM EDT 10/09/2024 5:57 AM EDT us Eileen Schroeder MD, PhD LAB BLOOD ORDERABLES Final Result [facility] [address] [place] [id number] * (ABNORMAL) Renal Function Panel w/EGFR (10/09/2024 4:59 AM EDT) Sodium 134 133 - 146 mmol/L 10/09/2024 6:42 AM EDT [facility] Potassium 3.3(L) 3.5 - 5.3 mmol/L 10/09/2024 6:42 AM EDT [facility] Chloride 107 98 - 110 mmol/L 10/09/2024 6:42 AM EDT [facility] CO2 16(L) 21 - 33 mmol/L 10/09/2024 6:42 AM EDT [facility] Anion Gap 11 3 - 16 mmol/L 10/09/2024 6:42 AM EDT [facility] BUN 56(H) 7 - 25 mg/dL 10/09/2024 6:42 AM EDT [facility] Creatinine 2.98(H) 0.60 - 1.30 mg/dL 10/09/2024 6:42 AM EDT [facility] Glucose 112(H) 70 - 100 mg/dL 10/09/2024 6:42 AM EDT [facility] Calcium 9.0 8.6 - 10.3 mg/dL 10/09/2024 6:42 AM EDT [facility] Phosphorus 3.5 2.1 - 4.7 mg/dL 10/09/2024 6:42 AM EDT [facility] Albumin 3.4(L) 3.5 - 5.7 g/dL 10/09/2024 6:42 AM EDT [facility] Osmolality, Calculated 294 278 - 305 mOsm/kg 10/09/2024 6:42 AM EDT [facility] EGFR 26 10/09/2024 6:42 AM EDT [facility] Comment:As of 2021, the [...] MD, PhD LAB BLOOD ORDERABLES Final Result [facility] [address] [place] [id number], [facility] * (ABNORMAL) CBC (10/09/2024 4:59 AM EDT) WBC 4.6 3.8 - 10.8 10E3/uL 10/09/2024 6:21 AM EDT [facility] RBC 2.17(L) 4.20 - 5.80 10E6/uL 10/09/2024 6:21 AM EDT [facility] Hemoglobin 8.0(L) 13.2 - 17.1 g/dL 10/09/2024 6:21 AM EDT [facility] Hematocrit 21.8(L) 38.5 - 50.0 % 10/09/2024 6:21 AM EDT [facility] MCV 100.5(H) 80.0 - 100.0 fL 10/09/2024 6:21 AM EDT [facility] MCH 36.7(H) 27.0 - 33.0 pg 10/09/2024 6:21 AM EDT [facility] MCHC 36.5(H) 32.0 - 36.0 g/dL 10/09/2024 6:21 AM EDT [facility] RDW 18.1(H) 11.0 - 15.0 % 10/09/2024 6:21 AM EDT [facility] Platelets 36(L) 140 - 400 10E3/uL 10/09/2024 6:21 AM EDT [facility] Comment:Specimen checked for clots. None detected. MPV 8.3 7.5 - 11.5 fL 10/09/2024 6:21 AM EDT [facility] Whole Blood 10/09/2024 4:59 AM EDT 10/09/2024 5:56 AM EDT us Eileen Schroeder MD, PhD LAB BLOOD ORDERABLES Final Result Performing Organization Address [facility]/ZIP Co de Phone Number [facility] [address] * Renal Tx Recipient (10/09/2024 4:59 AM EDT) [facility] Renal Transplant Recipient The request and specimen(s) for this test have been received and transported to the [facility] at [address] [place] [address]. The [facility] will report results directly to the client. 10/09/2024 7:26 AM EDT [facility] Blood 10/09/2024 4:59 AM EDT 10/09/2024 7:26 AM EDT us Aaron Gonzalez MD LAB BLOOD ORDERABLES Final Resu lt [facility] [address] * Vancomycin, random (10/09/2024 4:59 AM EDT) [facility] Vancomycin Random 11.0 ug/mL 10/09/2024 6:33 AM EDT [facility] Comment:Reference range not established for this test. Plasma 10/09/2024 4:59 AM EDT 10/09/2024 5:56 AM EDT us Jodi Ortiz PharmD LAB BLOOD ORDERABLES Final Result [facility] [address] [place] [address], [facility] * (ABNORMAL) CBC (10/08/2024 5:52 PM EDT) WBC 5.6 3.8 - 10.8 10E3/uL 10/08/2024 6:52 PM EDT [facility] RBC 2.38(L) 4.20 - 5.80 10E6/uL 10/08/2024 6:52 PM EDT [facility] Hemoglobin 8.3(L) 13.2 - 17.1 g/dL 10/08/2024 6:52 PM EDT [facility] Hematocrit 24.6(L) 38.5 - 50.0 % 10/08/2024 6:52 PM EDT [facility] MCV 103.2(H) 80.0 - 100.0 fL 10/08/2024 6:52 PM EDT [facility] MCH 34.7(H) 27.0 - 33.0 pg 10/08/2024 6:52 PM EDT [facility] MCHC 33.6 32.0 - 36.0 g/dL 10/08/2024 6:52 PM EDT [facility] RDW 18.5(H) 11.0 - 15.0 % 10/08/2024 6:52 PM EDT [facility] Platelets 39(L) 140 - 400 10E3/uL 10/08/2024 6:52 PM EDT [facility] Comment:CNV MPV 8.1 7.5 - 11.5 fL 10/08/2024 6:52 PM EDT [facility] Whole Blood 10/08/2024 5:52 PM EDT 10/08/2024 6:45 PM EDT us Eileen Schroeder MD, PhD LAB BLOOD ORDERABLES Final Result Performing Organization Address City/[facility]/ZIP Co de Phone Number [facility] [address] [place] [address], [facility] * Transfuse RBC Has consent been obtained? [...] BLOOD ADMIN Final Result Performing Organization Address City/[facility] Co de Phone Number EXTERNAL * (ABNORMAL) MMR(IgG) Panel (Measles, Mumps, Rubella) (10/08/2024 10:25 AM EDT) Mumps IgG Positive 10/08/2024 11:39 AM EDT [facility] MUMPS IGG NUM 99.00(H) 0.0 - 8.9 U/mL 10/08/2024 11:39 AM EDT [facility] Rubella IgG Scr Positive 10/08/2024 11:40 AM EDT [facility] RUB NUM 4.15(H) 0.00 - 0.89 INDEX 10/08/2024 11:40 AM EDT [facility] Rubeola Ab, IgG Positive 10/08/2024 11:39 AM EDT [facility] RUB IGG NUM 273.00(H) 0.00 - 13.40 U/mL 10/08/2024 11:39 AM EDT [facility] Serum 10/08/2024 10:2 5 AM EDT 10/08/2024 10:49 AM EDT Narrative [facility] - 10/08/2024 11:40 AM EDT Presence [...] ORDERABLES Final Resu lt Performing Organization Address [facility]/ZIP Co de Phone Number [facility] [address] [place] [address] * (ABNORMAL) Hemoglobin A1C (10/08/2024 10:25 [...] ORDERABLES Final Resu lt Performing Organization Address [facility] Co de Phone Number [facility] [address] [place] [facility]. [address] * (ABNORMAL) Vitamin D 25 Hydroxy (10/08/2024 10:25 AM EDT) Vit D, 25-Hydroxy 7.1(L) 30.0 - 100.0 ng/mL 10/08/2024 11:36 AM EDT [facility] Comment: Vitamin D deficiency has been defined by the [place] of [employer] (IOM) and an Endocrine Society [...] Endocrine Society clinical practice guideline. JCEM. 2010; 96(9):1911-30. Serum 10/08/2024 10:2 5 AM EDT 10/08/2024 10:49 AM EDT Gerri Peterson MD LAB BLOOD ORDERABLES Final Resu lt Performing Organization Address [facility] de Phone Number [facility] [address] [facility]. [address] * Iron Studies (Iron + TIBC) (10/08/2024 10:25 AM EDT) Iron 81 50 - 212 ug/dL 10/08/2024 11:23 AM EDT [facility] % Iron Saturation SEE COMMENT 15.0 - 55.0 % 10/08/2024 11:23 AM EDT [facility] Comment:Unable to calculate result because contributing result outside reportable range.. TIBC SEE COMMENT 261 - 462 ug/dL 10/08/2024 11:23 AM EDT [facility] Comment:Unable to calculate result because contributing result outside reportable range.. Serum 10/08/2024 10:2 5 AM EDT 10/08/2024 10:49 AM EDT Gerri Peterson MD LAB BLOOD ORDERABLES Final Resu lt Performing Organization Address [facility] Co de Phone Number [facility] [address] [facility]. [address] * (ABNORMAL) Ferritin (10/08/2024 10:25 AM EDT) Ferritin 706.9(H) 23.9 - 336.2 ng/mL 10/08/2024 11:35 AM EDT [facility] Serum 10/08/2024 10:2 5 AM EDT 10/08/2024 10:49 AM EDT us Gerri Peterson MD LAB BLOOD ORDERABLES Final Resu lt [facility] [address] * QuantiFERON TB2 Ag (10/08/2024 10:25 AM EDT) QuantiFERON TB2 Ag Value 0.07 10/10/2024 10:41 AM EDT [facility] Plasma 10/08/2024 10:2 5 AM EDT 10/08/2024 11:05 AM EDT us Gerri Peterson MD LAB BLOOD ORDERABLES Final Resu lt Performing Organization Address [facility]/ZIP Co de Phone Number [facility] [address] * QuantiFERON TB1 Ag (10/08/2024 10:25 AM EDT) QuantiFERON TB1 Ag Value 0.06 10/10/2024 10:41 AM EDT [facility] Plasma 10/08/2024 10:2 5 AM EDT 10/08/2024 11:05 AM EDT us Gerri Peterson MD LAB BLOOD ORDERABLES Final Resu lt Performing Organization Address City/[facility]/ZIP Co de Phone Number [facility] [address] * QuantiFERON Nil (10/08/2024 10:25 AM EDT) QuantiFERON Nil 0.06 10:41 [address] EDT [facility] Plasma 10/08/2024 10:2 5 AM EDT 10/08/2024 11:05 AM EDT us Gerri Peterson MD LAB BLOOD ORDERABLES Final Resu lt [facility] [address] [place] [id number] * QuantiFERON Mitogen (10/08/2024 10:25 AM EDT) QuantiFERON Interpretation Negative Negative 10/10/2024 10:41 AM EDT [facility] Comment:Negative result geovanny cates M. tuberculosis infection is NOT likely. Negative results do not preclude tuberculosis infection (especially in immunosuppressed patients). Negative results have a TB antigen minus Nil value less than 0.35 IU/mL. In cases with high suspicion of disease, retesting or additional testing with medical evaluation may be useful. QuantiFERON Mitogen 4.87 10/10 10:41 AM EDT [facility] Plasma 10/08/2024 10:2 5 AM EDT 10/08/2024 11:05 AM EDT Narrative [facility] - 10/10/2024 10:41 AM EDT The [...] BLOOD ORDERABLES Final Resu lt [facility] [address] [place], [place] [address] * Reticulocyte Count, Auto (10/08/2024 7:41 AM EDT) Retic Ct Pct 1.35 0.50 - 2.00 % 10/08/2024 9:12 AM EDT [facility] Retic Ct Abs 26,190 25,000 - 90,000 /uL 10/08/2024 9:14 [address] EDT [facility] Immature Retic Fract 0.37 0.09 - 0.56 10/08/2024 9:12 [address] EDT [facility] Whole Blood 10/08/2024 7:41 AM EDT 10/08/2024 8:51 AM EDT Angie Blanchard MD LAB BLOOD ORDERABLES Final Res ult Performing Organization Address [facility]/ZIP Co de Phone Number [facility] [address] * (ABNORMAL) Haptoglobin (10/08/2024 7:41 AM EDT) Haptoglobin <30(L) 44 - 215 mg/dL 10/08/2024 8:53 AM EDT [facility] Serum 10/08/2024 7:41 AM EDT 10/08/2024 7:51 AM EDT Eileen Schroeder MD, PhD LAB BLOOD ORDERABLES Final Result Performing Organization Address [facility] Co de Phone Number [facility] [address] * (ABNORMAL) CBC - Post Transfusion (10/08/2024 7:41 AM EDT) WBC 3.7(L) 3.8 - 10.8 10E3/uL 10/08/2024 8:34 AM EDT [facility] RBC 1.94(L) 4.20 - 5.80 10E6/uL 10/08/2024 8:34 [address] EDT [facility] Hemoglobin 7.1(L) 13.2 - 17.1 g/dL 10/08/2024 8:[address]T [facility] Hematocrit 20.0(L) 38.5 - 50.0 % 10/08/2024 8:[address] EDT [facility] MCV 103.1(H) 80.0 - 100.0 fL 10/08/2024 8:[address] EDT [facility] MCH 36.5(H) 27.0 - 33.0 pg 10/08/2024 8:[address] EDT [facility] MCHC 35.4 32.0 - 36.0 g/dL 10/08/2024 8:34 AM EDT [facility] RDW 17.2(H) 11.0 - 15.0 % 10/08/2024 8:[address] EDT [facility] Platelets 37(L) 140 - 400 10E3/uL 10/08/2024 8:34 AM EDT [facility] Comment: Specimen checked for clots. None detected. Slide Reviewed for PLT Clumps. None Seen. _Platelet Morphology Normal _Platelets Appear Decreased MPV 8.7 7.5 - 11.5 fL 10/08/2024 8:34 [address] EDT [facility] Whole Blood 10/08/2024 7:41 AM EDT 10/08/2024 7:52 AM EDT [facility] hospital [facility] - 10/08/2024 8:34 AM EDT Post-transfusion Eileen Schroeder MD, PhD LAB BLOOD ORDERABLES Final Result [facility] [address] [facility]. [address] * Antibody Screen (10/08/2024 7:41 AM EDT) Antibody Screen Negative 10/08/2024 8:26 AM EDT [facility] Blood 10/08/2024 7:41 AM EDT 10/08/2024 7:57 AM EDT Critical access hospital LAB - 10/08/2024 8:32 AM EDT Testing performed by [facility] Transfusion Service Eileen Schroeder MD, PhD BLOOD BANK TEST ORDER PAL Final Result [facility] [address] [facility]. [address] * ABO/Rh (10/08/2024 7:41 AM EDT) ABO Grouping O 10/08/2024 8:14 AM EDT [facility] Rh Type Positive 10/08/2024 8:14 AM EDT [facility] Blood 10/08/2024 7:41 AM EDT 10/08/2024 7:57 AM EDT Eileen Schroeder MD, PhD BLOOD BANK TEST ORDER PAL Final Result Performing Organization Address City/[facility]/ZIP Co de Phone Number [facility] [address] [place] [address] * (ABNORMAL) Lactate dehydrogenase (10/08/2024 5:36 AM EDT) LD 102(L) 110 - 270 U/L 10/08/2024 8:20 AM EDT [facility] Plasma 10/08/2024 5:36 AM EDT 10/08/2024 7:58 AM EDT Angie Blanchard MD LAB BLOOD ORDERABLES Final Res ult Performing Organization Address [facility] Co de Phone Number [facility] [address] [facility] * (ABNORMAL) Protime-INR (10/08/2024 5:36 AM EDT) Protime 26.9(H) 12.1 - 15.1 seconds 10/08/2024 6:[address] EDT [facility] INR 2.4(H) 0.9 - 1.1 10/08/2024 6:[address] [facility] Comment: RECOMMENDED THERAPEUTIC RANGES USING INR : Stable oral anticoagulant therapy: 2.0 - 3.0 Mechanical prosthetic heart valve: 2.5 - 3.5 Recurrent acute myocardial infarction: 2.5 - 3.5 Plasma 10/08/2024 5:36 AM EDT 10/08/2024 5:52 AM EDT Eileen Schroeder MD, PhD LAB BLOOD ORDERABLES Final Result Performing Organization Address [facility] Co de Phone Number [facility] [address] [place] [address] * (ABNORMAL) Hepatic Function Panel (10/08/2024 5:36 AM EDT) Total Bilirubin 7.7(H) 0.0 - 1.5 mg/dL 10/08/2024 6:25 [address] EDT [facility] Bilirubin, Direct 4.28(H) 0.00 - 0.40 mg/dL 10/08/2024 6:25 AM EDT [facility] AST 34 13 - 39 U/L 10/08/2024 6:25 AM EDT [facility] ALT 16 7 - 52 U/L 10/08/2024 6:25 AM EDT [facility] Alkaline Phosphatase 103 36 - 125 U/L 10/08/2024 6:25 AM EDT [facility] Total Protein 4.7(L) 6.4 - 8.9 g/dL 10/08/2024 6:25 [address] EDT [facility] Albumin 3.5 3.5 - 5.7 g/dL 10/08/2024 6:25 [address] EDT [facility] Bilirubin, Indirect 3.42(H) 0.00 - 1.10 mg/dL 10/08/2024 6:25 AM EDT [facility] Plasma 10/08/2024 5:36 AM EDT 10/08/2024 5:52 AM EDT Eileen Schroeder MD, PhD LAB BLOOD ORDERABLES Final Result [facility] [address] * Magnesium (10/08/2024 5:36 AM EDT) Magnesium 1.9 1.5 - 2.5 mg/dL 10/08/2024 6:25 AM EDT [facility] Plasma 10/08/2024 5:3 6 AM EDT 10/08/2024 5:52 AM EDT Eileen Schroeder MD, PhD LAB BLOOD ORDERABLES Final Result [facility] [address] [place], [place] [address] * (ABNORMAL) Renal Function Panel w/EGFR (10/08/2024 5:36 AM EDT) Sodium 135 133 - 146 mmol/L 10/08/2024 6:25 AM EDT [facility] Potassium 3.2(L) 3.5 - 5.3 mmol/L 10/08/2024 6:25 AM EDT [facility] Chloride 106 98 - 110 mmol/L 10/08/2024 6:25 AM EDT [facility] CO2 17(L) 21 - 33 mmol/L 10/08/2024 6:25 AM EDT [facility] Anion Gap 12 3 - 16 mmol/L 10/08/2024 6:25 AM EDT [facility] BUN 61(H) 7 - 25 mg/dL 10/08/2024 6:25 AM EDT [facility] Creatinine 3.10(H) 0.60 - 1.30 mg/dL 10/08/2024 6:25 [address] EDT [facility] Glucose 106(H) 70 - 100 mg/dL 10/08/2024 6:25 [address] EDT [facility] Calcium 9.0 8.6 - 10.3 mg/dL 10/08/2024 6:25 [address] EDT [facility] Phosphorus 4.0 2.1 - 4.7 mg/dL 10/08/2024 6:25 [address] EDT [facility] Albumin 3.5 3.5 - 5.7 g/dL 10/08/2024 6:25 [address] EDT [facility] Osmolality, Calculated 298 278 - 305 mOsm/kg 10/08/2024 6:25 AM EDT [facility] EGFR 25 10/08/2024 6:25 AM EDT [facility] Comment:As of 2021, the [...] 90 will be reported as >90mL/min/1.73m2. Reference: Talia Andersen, Olivia [place], Emerita [place], Madelyn [place], Felicia [place], et al. A Unifying Approach for GFR Estimation: Recommendations of the NKF-ASN Task Force on Reassessing the inclusion of Race in Diagnosing Kidney Disease. Am J Kidney Dis. 2020. Plasma 10/08/2024 5:36 AM EDT 10/08/2024 5:52 AM EDT us Eileen Schroeder MD, PhD LAB BLOOD ORDERABLES Final Result [facility] [address] [place] [address], [facility] * (ABNORMAL) CBC (10/08/2024 5:36 AM EDT) WBC 3.2(L) 3.8 - 10.8 10E3/uL 10/08/2024 6:41 [address] EDT [facility] RBC 1.86(L) 4.20 - 5.80 10E6/uL 10/08/2024 6:[address] EDT [facility] Hemoglobin 6.9(L) 13.2 - 17.1 g/dL 10/08/2024 6:41 AM EDT [facility] Hematocrit 18.9(L) 38.5 - 50.0 % 10/08/2024 6:41 AM EDT [facility] MCV 101.6(H) 80.0 - 100.0 fL 10/08/2024 6:41 AM EDT [facility] MCH 36.9(H) 27.0 - 33.0 pg 10/08/2024 6:41 AM EDT [facility] MCHC 36.3(H) 32.0 - 36.0 g/dL 10/08/2024 6:41 AM EDT [facility] RDW 17.0(H) 11.0 - 15.0 % 10/08/2024 6:41 AM EDT [facility] Platelets 34(L) 140 - 400 10E3/uL 10/08/2024 6:41 AM EDT [facility] Comment: Specimen checked for clots. None detected. Slide Reviewed for PLT Clumps. None Seen. Platelet Estimate Decreased 10/08/2024 6:41 AM EDT [facility] MPV 8.4 7.5 - 11.5 fL 10/08/2024 6:41 AM EDT [facility] Whole Blood 10/08/2024 5:36 AM EDT 10/08/2024 5:53 AM EDT Narrative [facility] - 10/08/2024 6:41 AM EDT Peripheral blood smear was scanned per review criteria approved by the laboratory medical charge entry specialist. us Eileen Schroeder MD, PhD LAB BLOOD ORDERABLES Final Result [facility] [address] [facility]. [address] * Vancomycin, random (10/08/2024 5:36 AM EDT) Vancomycin Random 16.0 ug/mL 10/08/2024 6:20 AM EDT [facility] Comment:Reference range not established for this test. Plasma 10/08/2024 5:36 AM EDT 10/08/2024 5:52 AM EDT us Jodi FreireD LAB BLOOD ORDERABLES Final Result Performing Organization Address [place] Hospital/[facility]/ZIP Co de Phone Number [facility] [address] [facility]. [address] * Urine Drug Confirmation (10/07/2024 10:50 PM EDT) BARBITURATES NOT PRESENT 10/09/2024 1:33 PM EDT [facility] BENZODIAZEPINES PRESENT 1:33 [address] [facility] Nordiazepam 3 ng/mL 10/09/2024 1:33 [address] ED[address] [facility] Temazepam 6 ng/mL 10/09/2024 1:33 PM EDT [facility] CANNABINOIDS NOT PRESENT 10/09/2024 1:33 PM EDT [facility] SHIPYARD PAINTER STIMULANTS NOT PRESENT 5 1:33 [address] [facility] OPIOID ANALGESICS PRESENT 025 1:[address] [facility] Oxycodone 300 ng/mL 10/09/2024 1:33 [address] [facility] Oxymorphone 32 ng/mL 10/09/2024 1:33 [address] [facility] Tramadol >1000 ng/mL 10/09/2024 1:33 PM EDT [facility] OPIOID ANTAGONISTS NOT PRESENT 10/09 1:33 [address] [facility] SEDATIVES/MUSCLE RELAXANTS NOT PRESENT 10/09/2024 1:33 PM EDT [facility] TRICYCLIC ANTIDEPRESSANTS NOT PRESENT 10/09/2024 1:33 PM EDT [facility] Urine 10/07/2024 10:5 0 PM EDT 10/08/2024 3:00 AM EDT Gerri Peterson MD URINE ORDERABLES Final Result Performing Organization Address City/[facility] Co de Phone Number [facility] [address] [facility]. [address] * Giardia Cryptosporidium Antigens (10/07/2024 10:50 PM EDT) Cryptosporidium Ag Negative Negative 2024 7:59 AM EDT [facility] Giardia Ag Negative Negative 10/08/2024 7:59 AM EDT [facility] Comment: Detection of Giardia and Cryptosporidium antigen is more sensitive and specific than microscopy. Because antigens are shed continuously, repeat testing is rarely warranted. Feces 10/07/2024 10:5 0 PM EDT 10/08/2024 1:53 AM EDT Comment:F Bisi Hernandez DO MICROBIOLOGY - GENERAL ORDERABLE S Final Result Performing Organization Address City/[facility]/ZIP Co de Phone Number [facility] [address] [facility]. [address] * (ABNORMAL) Urine Drug Screen Reflex to Confirmation (10/07/2024 10:50 PM EDT) Amphetamine, 500 ng/mL Cutoff Negative Negative 10/08/2024 3:00 AM EDT [facility] Barbiturates UR, 300 ng/mL Cutoff Negative Negative 10/08/2024 3:00 AM EDT [facility] Buprenorphine, 5 ng/mL Cutoff Negative Negative 10/08/2024 3:00 [address] EDT [facility] Benzodiazepines UR, 300 ng/mL Cutoff Negative Negative 10/08/2024 3:00 AM EDT [facility] Cocaine UR, 300 ng/mL Cutoff Negative Negative 10/08/2024 3:00 AM EDT [facility] Methadone, UR, 300 ng/mL Cutoff Negative Negative 10/08/2024 3:00 AM EDT [facility] Opiates UR, 300 ng/mL Cutoff Negative Negative 10/08/2024 3:00 AM EDT [facility] Oxycodone, 100 ng/mL Cutoff Presumptive Positive(A) Negative 10/08/2024 3:00 [address] EDT [facility] Tricyclic Antidepressants, 300 ng/mL Cutoff Negative Negative 10/08/2024 3:00 AM EDT [facility] Comment:This test has been d eveloped and its performance characteristics determined by [facility] which is certified under the [...] Cutoff Negative Negative 10/08/2024 3:00 AM EDT [facility] Comment:This is a screening method only and may be associated with false positive and/or false negative results. Results are not definitive without additional confirmatory testing by mass spectrometry. Fentanyl, 2 ng/mL Cutoff Negative Negative 10/08/2024 3:00 AM EDT [facility] Comment:This test has been d eveloped and its performance characteristics determined by [facility] which is certified under the [...] PM EDT 10/08/2024 2:08 AM EDT Narrative [facility] - 10/08/2024 3:00 AM EDT CONFIRMATION TO FOLLOW us Gerri Peterson MD URINE ORDERABLES Final Result [facility] [address] [place] [address], [facility] * Comprehensive Drug Screen (10/07/2024 10:50 PM EDT) Creatinine, Ur CANCELED mg/dL 10/08/2024 7:09 AM EDT [facility] Comment:The released value 8 7.30 was canceled by YAQUELIN on 10/08/2024 07:09 BARBITURATES CANCELED [facility] Butalbital CANCELED [facility] Phenobarbital CANCELED [facility] Secobarbital CANCELED [facility] BENZODIAZEPINES CANCELED [facility] Alprazolam CANCELED [facility] Clonazepam CANCELED [facility] Diazepam CANCELED [facility] Alpha-Hydroxyalprazo mcknight CANCELED [facility] Lorazepam CANCELED [facility] Midazolam CANCELED [facility] Nordiazepam CANCELED [facility] Oxazepam CANCELED [facility] Temazepam CANCELED [facility] CANNABINOIDS CANCELED [facility] THC-COOH CANCELED [facility] SHIPYARD PAINTER STIMULANTS CANCELED [facility] Cocaine Metabolite(benzoylec gonine) CANCELED [facility] Amphetamine CANCELED [facility] Methamphetamine CANCELED [facility] MDA CANCELED [facility] MDEA CANCELED [facility] Phencyclindine (PCP) CANCELED [facility] OPIOID ANALGESICS CANCELED [facility] Heroin Metabolite(6-RAMONA) CANCELED [facility] Codeine CANCELED [facility] Morphine CANCELED [facility] Hydrocodone CANCELED [facility] Hydromorphone CANCELED [facility] Oxycodone CANCELED [facility] Oxymorphone CANCELED [facility] Meperidine CANCELED [facility] Normeperidine CANCELED [facility] Methadone CANCELED [facility] Methadone Metabolite (EDDP) [facility]ELED [facility] Tramadol [facility] Fentanyl [facility] Norfentanyl [facility] Sufentanil [facility] OPIOID ANTAGONISTS CANCELED [facility] Buprenorphine [facility] Norbuprenorphine CANCELED [facility] Naltrexone [facility] Naloxone [facility] SEDATIVES/MUSCLE RELAXANTS [facility] Carisoprodol [facility] Meprobamate [facility] TRICYCLIC ANTIDEPRESSANTS [facility] Amitriptyline [facility] Clomipramine [facility] Desipramine [facility] Doxepin [facility] Imipramine CANCELED [facility] Nortriptyline [facility] Urine Creatinine CANCELED mg/dL [facility] Nitrite CANCELED [facility] Glutaraldehyde [facility]ELED [facility] pH CANCELED 10/08/2024 7:09 AM EDT [facility] Comment:The released value 5 .6 was canceled by YAQUELIN on 10/08/2024 07:09 Specific [place] CANCELED 10/09/19 7:09 AM EDT [facility] Comment:The released value 1 .009 was canceled by MABLEE on 10/08/2024 07:09 Bleach [address]CELED [facility] Pyridinium Chlorochromate CANCELED [facility] Urine 10/07/2024 10:5 0 PM EDT 10/08/2024 2:07 AM EDT Narrative [facility]ALTH LAB - 10/08/2024 7:09 AM EDT See accn [id number] us Gerri Peterson MD URINE ORDERABLES Edited Result - Final [facility] [address] [place] [address], [facility] * Ova and Parasite Comprehensive w/ Giardia/Crypto (10/07/2024 10:50 PM EDT) O & P Method: Concentration and Trichrome Stain [facility] Results No Amoeba, Ova, Or Parasites Seen. -- O and P examination of additional specimens is recommended only for symptomatic patients, immunosuppressed patients or those with an appropriate travel history. [facility] Feces FECES / Unknown 10/07/2024 1 0:50 PM EDT 10/08/2024 1:53 AM EDT Comment:F Bisi Hernandez DO MICROBIOLOGY - GENERAL ORDERABLE S Final Result [facility] [address] [facility]. [place] [id number], [facility] * Enteric Pathogen Panel (10/07/2024 10:50 PM EDT) Campylobacter Group (C. ecoli, C. jejuni, C. trino) Not Detected Not Detected 10/08/2024 4:40 AM EDT [facility] Salmonella species Not Detected Not Detected 10/08/2024 4:40 AM EDT [facility] Shigella species Not Detected Not Detected 10/08/2024 4:40 AM EDT [facility] Vibrio Group (Vibrio cholerae, Vibrio parahaemolyticus) Not Detected Not Detected 10/08/2024 4:40 AM EDT [facility] Yersinia enterocolitica Not Detected Not Detected 10/08/2024 4:40 AM EDT [facility] Shiga toxin 1 Not Detected Not Detected 10/08/2024 4:40 AM EDT [facility] Shiga toxin 2 Not Detected Not Detected 10/08/2024 4:40 AM EDT [facility] Norovirus Not Detected Not Detected 10/08/2024 4:40 AM EDT [facility] Rotavirus Not Detected Not Detected 10/08/2024 4:40 AM EDT [facility] Comment: The Enteric Pathogen Panel [...] ORDERABLE S Final Result Performing Organization Address [facility]/ZIP Co de Phone Number [facility] [address] * Hepatitis C Antibody (10/07/2024 6:38 PM EDT) HCV Ab Nonreactive Nonreactive 10/07/2024 7:56 PM EDT [facility] Comment:Health Department no tified in accordance with reportable infectious disease guidelines. Serum 10/07/2024 6:38 PM EDT 10/07/2024 6:52 PM EDT Narrative [facility] - 10/07/2024 7:56 PM EDT Antibodies to HCV not detected; does not exclude the possibility of exposure to HCV. Gerri Peterson MD LAB BLOOD ORDERABLES Final Resu lt Performing Organization Address [facility] Co de Phone Number [facility] [address] [place] [address] * Hepatitis B Surface Antibody, Quantitati (10/07/2024 6:38 PM EDT) Hep B S Ab Nonreactive Nonreactive 10/07/2024 8:[address] [facility] HBSAB NUMBER 7.88 0.00 - 7.99 mIU/mL 10/07/2024 8:[address] [facility] Serum 10/07/2024 6:38 PM EDT 10/07/2024 6:52 PM EDT Narrative [facility] - 10/07/2024 8:00 PM EDT Individual is considered not immune to HBV infection. Gerri Peterson MD LAB BLOOD ORDERABLES Final Resu lt Performing Organization Address City/[facility]/ZIP Co de Phone Number [facility] [address] [facility]. [address] * Hepatitis B surface antigen (10/07/2024 6:38 PM EDT) Hep B Surface Ag Nonreactive Nonreactive 10/07/2024 7:51 PM EDT [facility] Comment:Health Department no tified in accordance with reportable infectious disease guidelines. Serum 10/07/2024 6:38 PM EDT 10/07/2024 6:52 PM EDT Critical [facility] hospital [facility] - 10/07/2024 7:51 PM EDT Specimen is considered negative for HBsAg. Gerri Peterson MD LAB BLOOD ORDERABLES Final Resu lt Performing Organization Address City/[facility]/ZIP Co de Phone Number [address] * Hepatitis A Antibody Total (10/07/2024 6:38 PM EDT) Anti-HAV Total (IgG + IgM) Nonreactive 10/07/2024 7:53 PM EDT [facility] Serum 10/07/2024 6:38 PM EDT 10/07/2024 6:52 PM EDT Critical [facility] hospital [facility] - 10/07/2024 7:53 PM EDT HAV antibodies not detected Gerri Peterson MD LAB BLOOD ORDERABLES Final Resu lt [facility] [address] [place] [address]. [address] * Hepatitis A IgM (10/07/2024 6:38 PM EDT) Hep A IgM Nonreactive Nonreactive 10/07/2024 7:46 [address]T [facility] Serum 10/07/2024 6:38 PM EDT 10/07/2024 6:52 PM EDT Critical [facility] hospital [facility] - 10/07/2024 7:46 PM EDT IgM anti-HAV not detected. Does not exclude the possibility of exposure to or infection with HAV. Levels of IgM anti-HAV may be below the cut-off in early infection. us Gerri Peterson MD LAB BLOOD ORDERABLES Final Resu lt [facility] [address] [place] [address], [facility] * (ABNORMAL) Lipid Profile (10/07/2024 6:37 PM EDT) Non-HDL Cholesterol, Calculated See Note 0 - 129 mg/dL 10/07/2024 7:42 PM EDT [facility] Comment: Desirable: < 130 mg/dL Above Desirable: 130-159 mg/dL Borderline High: 160-189 mg/dL High: 190-219 mg/dL Very High: > 219 mg/dL Unable to calculate result either because contributing result(s) are outside of reportable range or are not available. Cholesterol, Total <25 0 - 200 mg/dL 10/07/2024 7:42 PM EDT [facility] Triglycerides 30 10 - 149 mg/dL 10/07/2024 7:42 PM EDT [facility] HDL 4(L) 60 - 92 mg/dL 10/07/2024 7:42 [address] ED[address] [facility] Comment: LIPID PROFILE INTERPRETATION CHOLESTEROL,TOTAL(mg/dL) DESIRABLE: [...] Cholesterol See Note mg/dL 7:42 PM EDT [facility] Comment:Unable to calculate result either because contributing result(s) are outside of reportable range or are not available. Plasma 10/07/2024 6:37 PM EDT 10/07/2024 7:06 PM EDT [facility] - 10/07/2024 7:42 PM EDT LDL cholesterol calculated using the Friedewald equation. Gerri Peterson MD LAB BLOOD ORDERABLES Final Resu lt [facility] [address] [place] [address], [facility] * (ABNORMAL) Alpha 1 Antitrypsin AAT Quant & Mutation (10/07/2024 6:37 PM EDT) A-1 Antitrypsin 99(L) 101 - 187 mg/dL 10/09/2024 4:28 AM EDT [facility] A-1 Antitrypsin Pheno Comment 10/10/2024 4:05 [address] ED[address] [facility] Comment: A1A Phenotype is consistent with a heterozygous phenotype consisting of one M (normal) allele and one allele that cannot be identified at this time. The unknown allele is not consistent with Z (deficient), S (deficient), or F (deficient). MM Phenotype is considered to be normal , producing normal serum levels of [id number] inhibitor and not associated with clinical disease. [...] PM EDT 10/10/2024 4:08 PM EDT [facility] - 10/10/2024 4:08 PM EDT PERFORMED AT: [facility] [address] [id number] FRETTED STRING INSTRUMENT REPAIRER: Bassam Khalil, PHONE: [phone] PERFORMED AT: [facility] [address] [id number] FRETT[employer]ING INSTRUMENT REPAIRER: Mandy Abdul MD PHONE: [phone] us Gerri Peterson MD LAB BLOOD ORDERABLES Final Resu lt [facility] [address] [facility]. [address] * (ABNORMAL) CMV IgG Antibody (10/07/2024 6:37 PM EDT) CMV IgG Positive(A ) Negative 10/07/2024 8:26 PM EDT [facility] CMV IGG NUM 8.40(H) 0.00 - 0.59 U/mL 10/07/2024 8:26 [address] EDT [facility] Serum 10/07/2024 6:37 PM EDT 10/07/2024 6:50 PM EDT us Gerri Peterson MD LAB BLOOD ORDERABLES Final Resu lt [facility] [address] [facility]. [address] * HIV-1 and HIV-2 Antibodies w Reflex (10/07/2024 6:37 PM EDT) HIV 1+2 AB/AGN Nonreactive Nonreactive 10/07/2024 7:54 PM EDT [facility] Serum 10/07/2024 6:37 PM EDT 10/07/2024 7:06 PM EDT Narrative [facility] - 10/07/2024 7:54 PM EDT \HIVRNR us Gerri Peterson MD LAB BLOOD ORDERABLES Final Resu lt [facility] [address] [facility]. [address] * TSH (Thyroid Stimulating Hormone) (10/07/2024 6:37 PM EDT) Pathologist [facility] TSH 0.81 0.45 - 4.12 uIU/mL 10/07/2024 8:[address] [facility] Serum 10/07/2024 6:37 PM EDT 10/07/2024 6:50 PM EDT us Gerri Peterson MD LAB BLOOD ORDERABLES Final Resu lt Performing Organization Address [facility] Co de Phone Number [facility] [address] [facility]. [address] * Katie-Watkins virus early antigen antibody, IgG (10/07/2024 6:37 PM EDT) [facility] EBV Early Antigen Ab, IgG <9.0 0.0 - 8.9 U/mL 10/09/2024 2:16 [address] [facility] Comment: Negative < 9.0 Equivocal 9.0 - 10.9 Positive >10.9 Serum Frozen 10/07/2024 6:37 PM EDT 10/09/2024 3:07 PM EDT Narrative [facility] - 10/09/2024 3:07 PM EDT PERFORMED AT: [facility] [id number] FRETTED [employer]ING INSTRUMENT REPAIRER: Bassam Khalil, PhD PHONE: [phone] us Gerri Peterson MD LAB BLOOD ORDERABLES Final Resu lt Performing Organization Address City/[facility]/ZIP Co de Phone Number [facility] [address] [facility]. [address] * (ABNORMAL) Varicella zoster antibody, IgG (10/07/2024 6:37 PM EDT) [facility] Varicella IgG Positive( A) Negative S/CO 10/07/2024 8:34 PM ED[address] [facility] Comment:Result indicates the presence of detectable VZV IgG antibodies. A positive result is generally indicative of exposure to the pathogen or administration of specific immunoglobulins, but it is no indication of active infection or stage of disease. This test is not approved for determining vaccine-induced immunity to varicella zoster virus. VZV NUM 6.76(H) 0.00 - 0.99 S/CO 10/07/2024 8:34 [address] ED[address] [facility] Serum 10/07/2024 6:37 PM EDT 10/07/2024 6:50 PM EDT Gerri Peterson MD LAB BLOOD ORDERABLES Final Resu lt Performing Organization Address [facility] Co de Phone Number [facility] [address] [place] [address] * Toxoplasma gondii antibody, IgG (10/07/2024 6:37 PM EDT) Toxoplasma Gondii IgG <3.0 0.0 - 7.1 IU/mL 10/09/2024 7:53 AM EDT [facility] Comment: Negative <7.2 Equivocal 7.2 - 8.7 Positive >8.7 Serum 10/07/2024 6:37 PM EDT 10/09/2024 8:07 AM EDT Narrative [facility] - 10/09/2024 8:07 AM EDT PERFORMED AT: [address] [id number] FRETTED STRING INSTRUMENT REPAIRER: Bassam Khalil, PhD PHONE: [phone] Gerri Peterson MD LAB BLOOD ORDERABLES Final Resu lt Performing Organization Address [facility] Co de Phone Number [facility] [address] * Syphilis Screening (Trepia) (10/07/2024 6:37 PM EDT) Treponema Pallidum Negative Negative 10/07/2024 8:27 [address] [facility] Comment: No serological evidence of infection with Treponema pallidum (incubating or early primary syphilis cannot be excluded). Serum 10/07/2024 6:37 PM EDT 10/07/2024 6:50 PM EDT Gerri Peterson MD LAB BLOOD ORDERABLES Final Resu lt Performing Organization Address [facility] Co de Phone Number [facility] [address] * Strongyloides Ab (10/07/2024 6:37 PM EDT) Strongyloides Ab Negative Negative 10/11/19 11:51 AM EDT [facility] Serum 10/07/2024 6:37 PM EDT 10/10/2024 12:07 PM EDT Narrative [facility] - 10/10/2024 12:07 PM EDT PERFORMED AT: [address] [id number] FRETTED [employer]ING INSTRUMENT REPAIRER: Mandy Abdul MD PHONE: [phone] Gerri Peterson MD LAB BLOOD ORDERABLES Final Resu lt Performing Organization Address [facility] de Phone Number [facility] [address] [place] [address] * Phosphatidylethanol Confirmation, B (10/07/2024 6:37 PM EDT) PETH 16:0/18.1 (POPETH) <10 Cutoff: 10 ng/mL 10/10/2024 10:42 AM EDT [facility] Comment: Phosphatidylethanol (PEth) homologues [...] Cutoff: 10 ng/mL 10/10/2024 10:42 AM EDT [facility] Comment: PEth 16:0/18:2 (PLPEth) Reference ranges are not well established PEth Interpretation Negative. 10/10 10:42 AM EDT [facility] Comment: ADDITIONAL INFORMATION This report is intended for use in clinical monitoring and management of patients. It is not intended for use in employment-related testing. This test was developed and its performance characteristics determined by [facility] in a manner consistent with CLIA requirements. This test has not been cleared or approved by the U.S. Food and Drug Administration. Test Performed by: [facility] [address] Wholesale Account Executive: Kathy Ortiz Ph.D.; CLIA# [id number] Whole Blood 10/07/2024 6:37 PM EDT 10/10/2024 10:42 AM EDT us Gerri Peterson MD LAB BLOOD ORDERABLES Final Resu lt [facility] [address] [facility] [place] [address], [facility] * (ABNORMAL) MMR(IgG) Panel (Measles, Mumps, Rubella) (10/07/2024 6:37 PM EDT) Mumps IgG Positive 10/07/2024 8:[address] [facility] MUMPS IGG NUM 77.80(H) 0.0 - 8.9 U/mL 10/07/2024 8:[address] [facility] Rubella IgG Scr Positive 10/07/2024 8:[address] [facility] RUB NUM 3.04(H) 0.00 - 0.89 INDEX 10/07/2024 8:[address] [facility] Rubeola Ab, IgG Positive 10/07/2024 8:[address] [facility] RUB IGG NUM 192.00(H) 0.00 - 13.40 U/mL 10/07/2024 8:[address] [facility] Serum 10/07/2024 6:37 PM EDT 10/07/2024 6:50 PM EDT Narrative [facility] - 10/07/2024 8:28 PM EDT Presence of detectable measles virus IgG antibodies. A positive result generally indicates exposure to measles virus or previous vaccination. Presence of detectable mumps virus IgG antibodies. A positive result generally indicates past exposure to mumps virus or previous vaccination. Sample is considered positive for IgG antibodies to rubella virus. Result [facility] Gerri Peterson MD LAB BLOOD ORDERABLES Final Resu lt Performing Organization Address City/[facility] Co de Phone Number [facility] [address] * IgA (10/07/2024 6:37 PM EDT) IgA 227.0 70.0 - 400.0 mg/dL 10/08/2024 11:07 AM EDT [facility] Comment:Please interpret the se findings in conjunction with clinical findings, protein electrophoresis, and immunotyping/immunofixation results. Serum 10/07/2024 6:37 PM EDT 10/07/2024 6:50 PM EDT Gerri Peterson MD LAB BLOOD ORDERABLES Final Resu lt [facility] [address] [facility]. [address] * Ethanol, Serum (10/07/2024 6:37 PM EDT) Ethanol <10 0 - 10 mg/dL 10/07/2024 8:36 PM EDT [facility] Serum 10/07/2024 6:37 PM EDT 10/07/2024 6:50 PM EDT Gerri Peterson MD LAB BLOOD ORDERABLES Final Resu lt Performing Organization Address [facility]/ZIP Co de Phone Number [facility] [address] * ABO/Rh - Second (10/07/2024 6:37 PM EDT) ABO Grouping O 10/07/2024 7:16 PM EDT [facility] Rh Type Positive 10/07/2024 7:16 PM EDT [facility] Blood 10/07/2024 6:37 PM EDT 10/07/2024 6:56 PM EDT Narrative [facility] - 10/07/2024 7:18 PM EDT This is not a duplicate order. It is required that ABO be drawn twice for LIVER TRANSPLANT Gerri Peterson MD BLOOD BANK TEST ORDERABLES Denisse l Result Performing Organization Address [facility] Co de Phone Number [facility] [address] * ABO/Rh- Initial (10/07/2024 6:37 PM EDT) ABO Grouping O 10/07/2024 7:59 PM EDT [facility] Rh Type Positive 10/07/2024 7:59 PM EDT [facility] Blood 10/07/2024 6:37 PM EDT 10/07/2024 7:25 PM EDT Gerri Peterson MD BLOOD BANK TEST ORDERABLES Denisse l Result Performing Organization Address [facility]/ZIP Co de Phone Number [facility] [address] * X-ray Mandible minimum 4-views (10/07/2024 [...] MD at 10/08/2024 1:12 PM EDT Gerri Peterson MD IMG DIAGNOSTIC IMAGING ORDERABL [...] EXAM: US ABDOMEN COMPLETE EXAM: US DUPLEX [id number] COMPLETE INDICATION: elevated bilirubin COMPARISON: Ultrasound and [...] EXAM: US ABDOMEN COMPLETE EXAM: US DUPLEX [id number] COMPLETE INDICATION: elevated bilirubin COMPARISON: Ultrasound and [...] 4:26 PM EDT us Bisi Hernandez DO [facility] US ORDERABLES Final Result * US Duplex [id number] Comp (10/07/2024 3:48 PM EDT) Anatomical Region [...] EXAM: US ABDOMEN COMPLETE EXAM: US DUPLEX [id number] COMPLETE INDICATION: elevated bilirubin COMPARISON: Ultrasound and [...] EXAM: US ABDOMEN COMPLETE EXAM: US DUPLEX [id number] COMPLETE INDICATION: elevated bilirubin COMPARISON: Ultrasound and [...] 4:26 PM EDT us Bisi Hernandez DO [facility] US ORDERABLES Final Result * CARISA Rhythm Strip - Scan (10/07/2024 3:30 PM EDT) us Scanning Uchhim SCAN DOCS - NO RESULTS Final Res ult * (ABNORMAL) Protime-INR (10/07/2024 6:00 AM EDT) Protime 26.9(H) 12.1 - 15.1 seconds 10/07/2024 6:55 AM EDT [facility] INR 2.4(H) 0.9 - 1.1 10/07/2024 6:55 AM EDT [facility] Comment: RECOMMENDED THERAPEUTIC RANGES USING INR : Stable oral anticoagulant therapy: 2.0 - 3.0 Mechanical prosthetic heart valve: 2.5 - 3.5 Recurrent acute myocardial infarction: 2.5 - 3.5 Plasma 10/07/2024 6:00 AM EDT 10/07/2024 6:39 AM EDT us Eileen Schroeder MD, PhD LAB BLOOD ORDERABLES Final Result Performing Organization Address [facility] Co de Phone Number [facility] [address] * (ABNORMAL) Hepatic Function Panel (10/07/2024 6:00 AM EDT) Total Bilirubin 9.7(H) 0.0 - 1.5 mg/dL 10/07/2024 7:10 AM EDT [facility] Bilirubin, Direct 5.21(H) 0.00 - 0.40 mg/dL 10/07/2024 7:10 AM EDT [facility] AST 39 13 - 39 U/L 10/07/2024 7:10 AM EDT [facility] ALT 18 7 - 52 U/L 10/07/2024 7:10 AM EDT [facility] Alkaline Phosphatase 98 36 - 125 U/L 10/07/2024 7:10 AM EDT [facility] Total Protein 4.8(L) 6.4 - 8.9 g/dL 10/07/2024 7:10 AM EDT [facility] Albumin 3.6 3.5 - 5.7 g/dL 10/07/2024 7:10 AM EDT [facility] Bilirubin, Indirect 4.49(H) 0.00 - 1.10 mg/dL 10/07/2024 7:10 AM EDT [facility] Plasma 10/07/2024 6:00 AM EDT 10/07/2024 6:39 AM EDT us Eileen Schroeder MD, PhD LAB BLOOD ORDERABLES Final Result Performing Organization Address [facility]/ZIP Co de Phone Number [facility] [address] * Magnesium (10/07/2024 6:00 AM EDT) Magnesium 1.7 1.5 - 2.5 mg/dL 10/07/2024 7:10 AM EDT [facility] Plasma 10/07/2024 6:00 AM EDT 10/07/2024 6:39 AM EDT us Eileen Schroeder MD, PhD LAB BLOOD ORDERABLES Final Result [facility] [address] [place] [address], [facility] * (ABNORMAL) Renal Function Panel w/EGFR (10/07/2024 6:00 AM EDT) Sodium 132(L) 133 - 146 mmol/L 10/07/2024 7:10 AM EDT [facility] Potassium 3.9 3.5 - 5.3 mmol/L 10/07/2024 7:10 AM EDT [facility] Chloride 103 98 - 110 mmol/L 10/07/2024 7:10 AM EDT [facility] CO2 19(L) 21 - 33 mmol/L 10/07/2024 7:10 AM EDT [facility] Anion Gap 10 3 - 16 mmol/L 10/07/2024 7:10 AM EDT [facility] BUN 64(H) 7 - 25 mg/dL 10/07/2024 7:10 AM EDT [facility] Creatinine 3.38(H) 0.60 - 1.30 mg/dL 10/07/2024 7:10 AM EDT [facility] Glucose 111(H) 70 - 100 mg/dL 10/07/2024 7:10 AM EDT [facility] Calcium 9.1 8.6 - 10.3 mg/dL 10/07/2024 7:10 AM EDT [facility] Phosphorus 4.2 2.1 - 4.7 mg/dL 10/07/2024 7:10 AM EDT [facility] Albumin 3.6 3.5 - 5.7 g/dL 10/07/2024 7:10 AM EDT [facility] Osmolality, Calculated 293 278 - 305 mOsm/kg 10/07/2024 7:10 AM EDT [facility] EGFR 22 10/07/2024 7:10 AM EDT [facility] Comment:As of 2021, the [...] BLOOD ORDERABLES Final Result Performing Organization Address City/State/[facility] Co de Phone Number [facility] [address] * (ABNORMAL) CBC (10/07/2024 6:00 AM EDT) WBC 3.3(L) 3.8 - 10.8 10E3/uL 10/07/2024 7:55 AM EDT [facility] RBC 2.06(L) 4.20 - 5.80 10E6/uL 10/07/2024 7:55 AM EDT [facility] Hemoglobin 7.4(L) 13.2 - 17.1 g/dL 10/07/2024 7:55 AM EDT [facility] Hematocrit 21.5(L) 38.5 - 50.0 % 10/07/2024 7:55 AM EDT [facility] MCV 104.1(H) 80.0 - 100.0 fL 10/07/2024 7:55 AM EDT [facility] MCH 35.8(H) 27.0 - 33.0 pg 10/07/2024 7:55 AM EDT [facility] MCHC 34.4 32.0 - 36.0 g/dL 10/07/2024 7:55 AM EDT [facility] RDW 17.5(H) 11.0 - 15.0 % 10/07/2024 7:55 AM EDT [facility] Platelets 35(L) 140 - 400 10E3/uL 10/07/2024 7:55 AM EDT [facility] Comment: Specimen checked for clots. None detected. Slide Reviewed for PLT Clumps. None Seen. _Platelet Morphology Normal _Platelets Appear Decreased Platelet Estimate Decreased 10/07/2024 7:55 AM EDT [facility] MPV 8.0 7.5 - 11.5 fL 10/07/2024 7:55 AM EDT [facility] Whole Blood 10/07/2024 6:00 AM EDT 10/07/2024 6:40 AM EDT [facility] - 10/07/2024 7:55 AM EDT Peripheral blood smear was scanned per review criteria approved by the laboratory medical charge entry specialist. us Eileen Schroeder MD, PhD LAB BLOOD ORDERABLES Final Result Performing Organization Address [facility]/ZIP Co de Phone Number [facility] [address] * AFP Tumor Marker (10/07/2024 6:00 AM EDT) Pathologist [facility] AFP-Tumor Marker 2.0 0.0 - 9.0 ng/mL 10/07/2024 7:11 AM EDT [facility] Serum 10/07/2024 6:00 AM EDT 10/07/2024 6:39 AM EDT [facility] - 10/07/2024 7:11 AM EDT The testing method for AFP is a chemiluminescent immunoassay manufactured by [employer] Concentrations of AFP obtained by different assay methods or kits may vary and cannot be used interchangeably. AFP results cannot be interpreted as absolute evidence of the presence or absence of malignant disease. us Shila Rivera MD LAB BLOOD ORDERABLES Final Resul t [facility] [address] * Vancomycin, random (10/07/2024 6:00 AM EDT) Vancomycin Random 21.1 ug/mL 10/07/2024 7:08 AM EDT [facility] Comment:Reference range not established for this test. Plasma 10/07/2024 6:00 AM EDT 10/07/2024 6:39 AM EDT Kiet Gardiner PharmD LAB BLOOD ORDERABLES Final Re sult [facility] [address] [facility]. [address] * Osmolality (10/06/2024 2:50 PM EDT) Osmolality, Measured 304 278 - 305 mOsm/kg 10/06/2024 3:49 PM EDT [facility] Serum 10/06/2024 2:50 PM EDT 10/06/2024 2:56 PM EDT Chari Vanegas MD LAB BLOOD ORDERABLES Final Resul t Performing Organization Address [facility] Co de Phone Number [facility] [address] [facility]. [address] * CT Head WO contrast (10/06/2024 [...] Eileen Schroeder MD, PhD IMG CT ORDERABLES [facility] Result * Chloride, urine, random (10/06/2024 1:25 PM EDT) Chloride, Ur <15 mmol/L 10/06/2024 1:56 PM EDT [facility] Comment:Reference range not established for this test. Urine 10/06/2024 1:25 PM EDT 10/06/2024 1:32 PM EDT Chari Vanegas MD URINE ORDERABLES Final Result [facility] [address] [place] [address], [facility] * Potassium, urine, random (10/06/2024 1:25 PM EDT) Potassium Urine Random 50.0 mmol/L 10/06/2024 1:56 PM EDT [facility] Comment:Reference range not established for this test. Urine 10/06/2024 1:25 PM EDT 10/06/2024 1:32 PM EDT us Chari Vanegas MD URINE ORDERABLES Final Result Performing Organization Address [facility] de Phone Number [facility] [address] [facility]. [address] * Sodium, urine, random (10/06/2024 1:25 PM EDT) Sodium, Ur <10 mmol/L 10/06/2024 1:56 PM EDT [facility] Comment:Reference range not established for this test. Urine 10/06/2024 1:25 PM EDT 10/06/2024 1:32 PM EDT us Chari Vanegas MD URINE ORDERABLES Final Result Performing Organization Address [facility] de Phone Number [facility] [address] [facility]. [address] * Creatinine, Urine, Random (10/06/2024 1:25 PM EDT) Creatinine, Urine 87.40 mg/dL 10/06/2024 1:56 PM EDT [facility] Comment:Reference range not established for this test. Urine 10/06/2024 1:25 PM EDT 10/06/2024 1:32 PM EDT us Chari Vanegas MD URINE ORDERABLES Final Result Performing Organization Address [facility] de Phone Number [facility] [address] [facility]. [address] * Osmolality, Urine (10/06/2024 1:25 PM EDT) Osmolality, Ur 386 50 - 1,200 mOsm/kg 10/06/2024 1:55 PM EDT [facility] Urine 10/06/2024 1:25 PM EDT 10/06/2024 1:32 PM EDT us Chari Vanegas MD URINE ORDERABLES Final Result [facility] [address] [facility] [place] [address], [facility] * Urine Drug Confirmation (10/06/2024 11:51 AM EDT) BARBITURATES NOT PRESENT 10/09/2024 3:23 PM EDT [facility] Comment:Results were recheck ed. BENZODIAZEPINES PRESENT 3:[address] [facility] Nordiazepam 3 ng/mL 10/09/2024 3:[address] [facility] Comment:Results were recheck ed. Temazepam 8 ng/mL 10/09/2024 3:23 PM EDT [facility] Comment:Results were recheck ed. CANNABINOIDS NOT PRESENT 10/09/2024 3:23 PM EDT [facility] SHIPYARD PAINTER STIMULANTS NOT PRESENT 3:23 PM EDT [facility] OPIOID ANALGESICS PRESENT 025 3:[address] [facility] Oxycodone 329 ng/mL 10/09/2024 3:[address] [facility] Oxymorphone 61 ng/mL 10/09/2024 3:[address] [facility] Tramadol >1000 ng/mL 10/09/2024 3:23 [address] [facility] OPIOID ANTAGONISTS NOT PRESENT 10/09 3:23 [address] [facility] SEDATIVES/MUSCLE RELAXANTS NOT PRESENT 10/09/2024 3:23 [address] [facility] TRICYCLIC ANTIDEPRESSANTS NOT PRESENT 10/09/2024 3:[address] [facility] Urine 10/06/2024 11:5 1 AM EDT 10/06/2024 1:13 PM EDT us Bisi Hernandez DO URINE ORDERABLES Final Result [facility] [address] [place], [place] [address] * (ABNORMAL) Urine Drug Screen Reflex to Confirmation (10/06/2024 11:51 AM EDT) Amphetamine, 500 ng/mL Cutoff Negative Negative 10/06/2024 1:13 [address] [facility] Barbiturates UR, 300 ng/mL Cutoff Negative Negative 10/06/2024 1:[address] [facility] Buprenorphine, 5 ng/mL Cutoff Negative Negative 10/06/2024 1:[address] [facility] Benzodiazepines UR, 300 ng/mL Cutoff Negative Negative 10/06/2024 1:[address] [facility] Cocaine UR, 300 ng/mL Cutoff Negative Negative 10/06/2024 1:[address] [facility] Methadone, UR, 300 ng/mL Cutoff Negative Negative 10/06/2024 1:[address] [facility] Opiates UR, 300 ng/mL Cutoff Negative Negative 10/06/2024 1:[address] [facility] Oxycodone, 100 ng/mL Cutoff Presumptive Positive(A) Negative 10/06/2024 1:[address] [facility] Tricyclic Antidepressants, 300 ng/mL Cutoff Negative Negative 10/06/2024 1:13 [address] [facility] Comment:This test has been d eveloped and its performance characteristics determined by [facility] which is certified under the [...] Cutoff Negative Negative 10/06/2024 1:13 [address] [facility] Comment:This is a screening method only and may be associated with false positive and/or false negative results. Results are not definitive without additional confirmatory testing by mass spectrometry. Fentanyl, 2 ng/mL Cutoff Negative Negative 10/06/2024 1:13 [address] [facility] Comment:This test has been d eveloped and its performance characteristics determined by [facility] which is certified under the [...] AM EDT 10/06/2024 11:58 AM EDT Narrative [facility] - 10/06/2024 1:13 PM EDT CONFIRMATION TO FOLLOW Bisi Hernandez DO URINE ORDERABLES Final Result Performing Organization Address City/[facility]/ZIP Co de Phone Number [facility] [address] [facility]. [address] * Chloride, urine, random (10/06/2024 11:51 AM EDT) Chloride, Ur <15 mmol/L 10/06/2024 1:13 PM [address] [facility] Comment:Reference range not established for this test. Urine 10/06/2024 11:5 1 AM EDT 10/06/2024 11:57 AM EDT Bisi Hernandez DO URINE ORDERABLES Final Result Performing Organization Address [facility] Co de Phone Number [facility] [address] [facility]. [address] * Potassium, urine, random (10/06/2024 11:51 AM EDT) Potassium Urine Random 49.0 mmol/L 10/06/2024 1:13 PM EDT [facility] Comment:Reference range not established for this test. Urine 10/06/2024 11:5 1 AM EDT 10/06/2024 11:57 AM EDT Bisi Hernandez DO URINE ORDERABLES Final Result Performing Organization Address City/[facility] Co de Phone Number [facility] [address] [facility]. [address] * Sodium, urine, random (10/06/2024 11:51 AM EDT) Sodium, Ur <10 mmol/L 10/06/2024 1:13 PM EDT [facility] Comment:Reference range not established for this test. Urine 10/06/2024 11:5 1 AM EDT 10/06/2024 11:57 AM EDT Bisi Hernandez DO URINE ORDERABLES Final Result [facility] [address] [place] [address], [facility] * Urinalysis w/Rfl to Microscopic (10/06/2024 11:51 AM EDT) Color, UA Yellow Yellow,Straw 10/06/2024 12:[address] [facility] Clarity, UA Clear Clear 10/06/2024 12:[address] [facility] Specific [place], UA 1.014 1.005 - 1.035 10/06/2024 12:25 [address] [facility] pH, UA 6.0 5.0 - 8.0 10/06/2024 12:[address] [facility] Protein, UA Negative Negative mg/dL 10/06/2024 12:[address] [facility] Glucose, UA Negative Negative mg/dL 10/06/2024 12:[address] [facility] Ketones, UA Negative Negative mg/dL 10/06/2024 12:[address] [facility] Bilirubin, UA Negative Negative 10/06/2024 12:[address] [facility] Blood, UA Negative Negative 10/06/2024 12:[address] [facility] Nitrite, UA Negative Negative 10/06/2024 12:[address] [facility] Urobilinogen, UA <2.0 0.2 - 1.9 mg/dL 10/06/2024 12:[address] [facility] Leukocyte Esterase, UA Negative Negative 10/06/2024 12:[address] [facility] Urine 10/06/2024 11:5 1 AM EDT 10/06/2024 11:57 AM EDT Narrative [facility] - 10/06/2024 12:25 PM EDT Microscopic testing is not performed when the dipstick is negative for blood, leukocyte, protein and nitrite. us Bisi Hernandez DO URINE ORDERABLES Final Result Performing Organization Address [facility]/ZIP Co de Phone Number [facility] [address] * Lactic Acid, STAT (10/06/2024 7:38 AM EDT) Lactate 0.9 0.5 - 2.2 mmol/L 10/06/2024 8:05 [address] EDT [facility] Plasma 10/06/2024 7:38 AM EDT 10/06/2024 7:42 AM EDT us Chari Vanegas MD LAB BLOOD ORDERABLES Final Resul t Performing Organization Address [facility]/ZIP Co de Phone Number [facility] [address] * (ABNORMAL) CBC, STAT (10/06/2024 7:37 AM EDT) WBC 5.6 3.8 - 10.8 10E3/uL 10/06/2024 8:22 AM EDT [facility] RBC 2.50(L) 4.20 - 5.80 10E6/uL 10/06/2024 8:22 AM EDT [facility] Hemoglobin 9.0(L) 13.2 - 17.1 g/dL 10/06/2024 8:22 AM EDT [facility] Hematocrit 25.3(L) 38.5 - 50.0 % 10/06/2024 8:22 AM EDT [facility] MCV 101.2(H) 80.0 - 100.0 fL 10/06/2024 8:22 AM EDT [facility] MCH 36.0(H) 27.0 - 33.0 pg 10/06/2024 8:22 AM EDT [facility] MCHC 35.6 32.0 - 36.0 g/dL 10/06/2024 8:22 AM EDT [facility] RDW 17.7(H) 11.0 - 15.0 % 10/06/2024 8:22 AM EDT [facility] Platelets 52(L) 140 - 400 10E3/uL 10/06/2024 8:22 AM EDT [facility] Comment: Specimen checked for clots. None detected. Slide Reviewed for PLT Clumps. None Seen. MPV 8.2 7.5 - 11.5 fL 10/06/2024 8:[address] EDT [facility] Whole Blood 10/06/2024 7:37 AM EDT 10/06/2024 7:43 AM EDT us Chari Vanegas MD LAB BLOOD ORDERABLES Final Resul t [facility] [address] [place] [address], [facility] * (ABNORMAL) Comprehensive Metabolic Panel (10/06/2024 7:37 AM EDT) Sodium 129(L) 133 - 146 mmol/L 10/06/2024 8:16 AM EDT [facility] Potassium 4.4 3.5 - 5.3 mmol/L 10/06/2024 8:16 AM EDT [facility] Chloride 100 98 - 110 mmol/L 10/06/2024 8:16 AM EDT [facility] CO2 18(L) 21 - 33 mmol/L 10/06/2024 8:16 AM EDT [facility] Anion Gap 11 3 - 16 mmol/L 10/06/2024 8:16 AM EDT [facility] BUN 62(H) 7 - 25 mg/dL 10/06/2024 8:16 AM EDT [facility] Creatinine 3.40(H) 0.60 - 1.30 mg/dL 10/06/2024 8:16 [address] EDT [facility] Glucose 98 70 - 100 mg/dL 10/06/2024 8:16 AM EDT [facility] Calcium 9.5 8.6 - 10.3 mg/dL 10/06/2024 8:16 AM EDT [facility] Total Bilirubin 14.3(H) 0.0 - 1.5 mg/dL 10/06/2024 8:16 AM EDT [facility] AST 57(H) 13 - 39 U/L 10/06/2024 8:16 AM EDT [facility] ALT 29 7 - 52 U/L 10/06/2024 8:16 AM EDT [facility] Alkaline Phosphatase 158(H) 36 - 125 U/L 10/06/2024 8:16 AM EDT [facility] Total Protein 5.6(L) 6.4 - 8.9 g/dL 10/06/2024 8:16 AM EDT [facility] Albumin 3.6 3.5 - 5.7 g/dL 10/06/2024 8:16 AM EDT [facility] Osmolality, Calculated 286 278 - 305 mOsm/kg 10/06/2024 8:16 AM EDT [facility] EGFR 22 10/06/2024 8:16 AM EDT [facility] [facility] Comment:As of 2021, the [...] MD LAB BLOOD ORDERABLES Final Resul t [facility] [address] [place] [address], [facility] * (ABNORMAL) Venous Blood Gas, Line/Syringe, STAT (10/06/2024 7:37 AM EDT) PH-Line Draw 7.27(L) 7.32 - 7.42 10/06/2024 7:46 AM EDT [facility] PCO2-Line Draw 36(L) 41 - 51 mm Hg 10/06/2024 7:46 AM EDT [facility] PO2-Line Draw 44(H) 25 - 40 mm Hg 10/06/2024 7:46 AM EDT [facility] HCO3-Line Draw 17(L) 24 - 28 mmol/L 10/06/2024 7:46 AM EDT [facility] CO2 Content-Line Draw 18(L) 25 - 29 mmol/L 10/06/2024 7:46 AM EDT [facility] Base Excess-Line Draw -9.6(L) -2.0 - 3.0 mmol/L 10/06/2024 7:46 AM EDT [facility] %HBO2-Line Draw 69.8 40.0 - 70.0 % 10/06/2024 7:46 AM EDT [facility] Carboxyhgb-Ludivina e Draw 0.7 % 10/06/2024 7:46 AM EDT [facility] Comment: CARBOXYHEMOGLOBIN (CO) REFERENCE RANGES: Non-Smokers: <2 % Smokers: <8 % TOXIC: >20 % Methemoglobin- Line Draw 0.3 0.0 - 1.5 % 10/06/2024 7:46 AM EDT [facility] Reduced Hemoglobin-Ludivina e Draw 29.2(H) 0.0 - 5.0 % 10/06/2024 7:46 AM EDT [facility] Venous, Line Draw 10/06/2024 7:37 AM EDT 10/06/2024 7:43 AM EDT us Chari Vanegas MD LAB BLOOD ORDERABLES Final Resul t [facility] [address] [place] [address], [facility] * (ABNORMAL) Venous Blood Gas, Line/Syringe, STAT (10/06/2024 4:03 AM EDT) PH-Line Draw 7.21(L) 7.32 - 7.42 10/06/2024 4:16 AM EDT [facility] PCO2-Line Draw 41 41 - 51 mm Hg 10/06/2024 4:16 AM EDT [facility] PO2-Line Draw 32 25 - 40 mm Hg 10/06/2024 4:16 AM EDT [facility] HCO3-Line Draw 16(L) 24 - 28 mmol/L 10/06/2024 4:16 AM EDT [facility] CO2 Content-Line Draw 18(L) 25 - 29 mmol/L 10/06/2024 4:16 AM EDT [facility] Base Excess-Line Draw -10.8(L) -2.0 - 3.0 mmol/L 10/06/2024 4:16 AM EDT [facility] %HBO2-Line Draw 47.5 40.0 - 70.0 % 10/06/2024 4:16 AM EDT [facility] Carboxyhgb-Ludivina e Draw 2.0 % 10/06/2024 4:16 AM EDT [facility] Comment: CARBOXYHEMOGLOBIN (CO) REFERENCE RANGES: Non-Smokers: <2 % Smokers: <8 % TOXIC: >20 % Methemoglobin- Line Draw 0.7 0.0 - 1.5 % 10/06/2024 4:16 AM EDT [facility] Reduced Hemoglobin-Ludivina e Draw 49.8(H) 0.0 - 5.0 % 10/06/2024 4:16 AM EDT [facility] Venous, Line Draw 10/06/2024 4:03 AM EDT 10/06/2024 4:12 AM EDT us Bisi Hernandez DO LAB BLOOD ORDERABLES Final Resul t [facility] [address] [id number], [facility] * (ABNORMAL) Protime-INR (10/06/2024 4:01 AM EDT) Protime 21.3(H) 12.1 - 15.1 seconds 10/06/2024 4:40 AM EDT [facility] INR 1.8(H) 0.9 - 1.1 10/06/2024 4:40 AM EDT [facility] Comment: RECOMMENDED THERAPEUTIC RANGES USING INR : Stable oral anticoagulant therapy: 2.0 - 3.0 Mechanical prosthetic heart valve: 2.5 - 3.5 Recurrent acute myocardial infarction: 2.5 - 3.5 Plasma 10/06/2024 4:01 AM EDT 10/06/2024 4:11 AM EDT [facility] LAB BLOOD ORDERABLES Final Resul t Performing Organization Address [facility] Co de Phone Number [facility] [address] [facility]. [address] * (ABNORMAL) Hepatic Function Panel, AM (10/06/2024 4:01 AM EDT) Total Bilirubin 14.7(H) 0.0 - 1.5 mg/dL 10/06/2024 4:57 AM EDT [facility] Bilirubin, Direct 7.08(H) 0.00 - 0.40 mg/dL 10/06/2024 4:57 AM EDT [facility] AST 60(H) 13 - 39 U/L 10/06/2024 4:57 AM EDT [facility] ALT 31 7 - 52 U/L 10/06/2024 4:57 AM EDT [facility] Alkaline Phosphatase 162(H) 36 - 125 U/L 10/06/2024 4:57 AM EDT [facility] Total Protein 5.3(L) 6.4 - 8.9 g/dL 10/06/2024 4:57 AM EDT [facility] Albumin 3.4(L) 3.5 - 5.7 g/dL 10/06/2024 4:57 AM EDT [facility] Bilirubin, Indirect 7.62(H) 0.00 - 1.10 mg/dL 10/06/2024 4:57 AM EDT [facility] Plasma 10/06/2024 4:01 AM EDT 10/06/2024 4:22 AM EDT Zocere DO LAB BLOOD ORDERABLES Final Resul t [facility] [address] * Magnesium (10/06/2024 4:01 AM EDT) Magnesium 1.8 1.5 - 2.5 mg/dL 10/06/2024 4:57 AM EDT [facility] Plasma 10/06/2024 4:01 AM EDT 10/06/2024 4:22 AM EDT us Bisi Hernandez DO LAB BLOOD ORDERABLES Final Resul t [facility] [address] * (ABNORMAL) Renal Function Panel w/EGFR (10/06/2024 4:01 AM EDT) Sodium 129(L) 133 - 146 mmol/L 10/06/2024 4:57 AM EDT [facility] Potassium 4.7 3.5 - 5.3 mmol/L 10/06/2024 4:57 AM EDT [facility] Chloride 100 98 - 110 mmol/L 10/06/2024 4:57 AM EDT [facility] CO2 16(L) 21 - 33 mmol/L 10/06/2024 4:57 AM EDT [facility] Anion Gap 13 3 - 16 mmol/L 10/06/2024 4:57 AM EDT [facility] BUN 61(H) 7 - 25 mg/dL 10/06/2024 4:57 AM EDT [facility] Creatinine 3.49(H) 0.60 - 1.30 mg/dL 10/06/2024 4:57 AM EDT [facility] Glucose 104(H) 70 - 100 mg/dL 10/06/2024 4:57 AM EDT [facility] Calcium 9.2 8.6 - 10.3 mg/dL 10/06/2024 4:57 AM EDT [facility] Phosphorus 5.3(H) 2.1 - 4.7 mg/dL 10/06/2024 4:57 AM EDT [facility] Albumin 3.4(L) 3.5 - 5.7 g/dL 10/06/2024 4:57 AM EDT [facility] Osmolality, Calculated 286 278 - 305 mOsm/kg 10/06/2024 4:57 AM EDT [facility] EGFR 22 10/06/2024 4:57 AM EDT [facility] Comment:As of 2021, the [...] DO LAB BLOOD ORDERABLES Final Resul t [facility] [address] [place] [address], [facility] * (ABNORMAL) CBC (10/06/2024 4:01 AM EDT) WBC 7.6 3.8 - 10.8 10E3/uL 10/06/2024 5:16 AM EDT [facility] RBC 2.77(L) 4.20 - 5.80 10E6/uL 10/06/2024 5:16 AM EDT [facility] Hemoglobin 10.1(L) 13.2 - 17.1 g/dL 10/06/2024 5:16 AM EDT [facility] Hematocrit 28.4(L) 38.5 - 50.0 % 10/06/2024 5:16 AM EDT [facility] MCV 102.4(H) 80.0 - 100.0 fL 10/06/2024 5:16 AM EDT [facility] MCH 36.4(H) 27.0 - 33.0 pg 10/06/2024 5:16 AM EDT [facility] MCHC 35.5 32.0 - 36.0 g/dL 10/06/2024 5:16 AM EDT [facility] RDW 18.0(H) 11.0 - 15.0 % 10/06/2024 5:16 AM EDT [facility] Platelets 53(L) 140 - 400 10E3/uL 10/06/2024 5:16 AM EDT [facility] Comment:Specimen checked for clots. None detected. MPV 8.4 7.5 - 11.5 fL 10/06/2024 5:16 AM EDT [facility] Whole Blood 10/06/2024 4:01 AM EDT 10/06/2024 4:11 AM EDT [facility] LAB BLOOD ORDERABLES Final Resul t Performing Organization Address City/[facility]/ZIP Co de Phone Number [facility] [address] * Hepatitis C Antibody (10/06/2024 4:01 AM EDT) Pathologist [facility] HCV Ab Nonreactive Nonreactive 10/06/2024 5:12 AM EDT [facility] Comment:Health Department no tified in accordance with reportable infectious disease guidelines. Serum 10/06/2024 4:01 AM EDT 10/06/2024 4:11 AM EDT Narrative [facility] - 10/06/2024 5:12 AM EDT Antibodies to HCV not detected; does not exclude the possibility of exposure to HCV. [facility] LAB BLOOD ORDERABLES Final Resul t Performing Organization Address City/[facility]/ZIP Co de Phone Number [facility] [address] * (ABNORMAL) Hepatitis B Surface Antibody, Quantitati (10/06/2024 4:01 AM EDT) Hep B S Ab Reactive( A) Nonreactive 10/06/2024 5:16 AM EDT [facility] HBSAB NUMBER 11.50(H) 0.00 - 7.99 mIU/mL 10/06/2024 5:16 AM EDT [facility] Serum 10/06/2024 4:01 AM EDT 10/06/2024 4:11 AM EDT Critical access hospital [facility] - 10/06/2024 5:16 AM EDT Individual is considered immune to HBV infection. [facility] LAB BLOOD ORDERABLES Final Resul t Performing Organization Address City/[facility]/ZIP Co de Phone Number [facility] [address] [place] [address]. [address] * Hepatitis B surface antigen (10/06/2024 4:01 AM EDT) Hep B Surface Ag Nonreactive Nonreactive 10/06/2024 5:07 AM EDT [facility] Comment:Health Department no tified in accordance with reportable infectious disease guidelines. Serum 10/06/2024 4:01 AM EDT 10/06/2024 4:11 AM EDT [facility] - 10/06/2024 5:07 AM EDT Specimen is considered negative for HBsAg. [facility] LAB BLOOD ORDERABLES Final Resul t Performing Organization Address City/[facility]/ZIP Co de Phone Number [facility] [address] [facility]. [address] * Hepatitis A Antibody Total (10/06/2024 4:01 AM EDT) Anti-HAV Total (IgG + IgM) Nonreactive 10/06/2024 5:08 AM EDT [facility] Serum 10/06/2024 4:01 AM EDT 10/06/2024 4:11 AM EDT Critical [facility] - 10/06/2024 5:08 AM EDT HAV antibodies not detected [facility] LAB BLOOD ORDERABLES Final Resul t Performing Organization Address [facility]/ZIP Co de Phone Number [facility] [address] * Hepatitis A IgM (10/06/2024 4:01 AM EDT) Pathologist [facility] Hep A IgM Nonreactive Nonreactive 10/06/2024 5:02 AM EDT [facility] Serum 10/06/2024 4:01 AM EDT 10/06/2024 4:11 AM EDT Narrative [facility]ALTH [facility] - 10/06/2024 5:02 AM EDT IgM anti-HAV not detected. Does not exclude the possibility of exposure to or infection with HAV. Levels of IgM anti-HAV may be below the cut-off in early infection. [facility] LAB BLOOD ORDERABLES Final Resul t Performing Organization Address [facility] Co de Phone Number [facility] [address] * (ABNORMAL) Salicylate Level (10/06/2024 4:01 AM EDT) Pathologist [facility] Salicylate Lvl <3(L) 10 - 30 mg/dL 10/06/2024 4:58 AM EDT [facility] Serum 10/06/2024 4:01 AM EDT 10/06/2024 4:22 AM EDT [facility] LAB BLOOD ORDERABLES Final Resul t Performing Organization Address City/[facility]/ZIP Co de Phone Number [facility] [address] * AFP Tumor Marker (10/06/2024 4:01 AM EDT) Pathologist [facility] AFP-Tumor Marker 2.6 0.0 - 9.0 ng/mL 10/06/2024 4:55 AM EDT [facility] Serum 10/06/2024 4:01 AM EDT 10/06/2024 4:22 AM EDT Narrative [facility] - 10/06/2024 4:55 AM EDT The testing method for AFP is a chemiluminescent immunoassay manufactured by [employer] Concentrations of AFP obtained by different assay methods or kits may vary and cannot be used interchangeably. AFP results cannot be interpreted as absolute evidence of the presence or absence of malignant disease. us Bisi Hernandez LAB BLOOD ORDERABLES Final Resul t [facility] [address] [facility]. [place] [id number] * Upper Respiratory Viral/Bacterial Panel-STEM MOUNTER Only (10/06/2024 3:12 AM EDT) Pathologist [facility] Adenovirus Not Detected Not Detected 10/06/2024 11:38 PM EDT [facility] Coronavirus (229E,HKU1,NL63,OC 43) Not Detected Not Detected 10/06/2024 11:38 [address] EDT [facility] SARS-CoV-2 Not Detected Not Detected 10/06/2024 11:38 PM EDT [facility] Human Metapneumovirus Not Detected Not Detected 10/06/2024 11:38 PM EDT [facility] Human Rhinovirus/Enterov irus Not Detected Not Detected 10/06/2024 11:38 PM EDT [facility] Influenza A Not Detected Not Detected 10/06/2024 11:38 PM EDT [facility] Influenza A H1 Not Detected Not Detected 10/06/2024 11:38 PM EDT [facility] Influenza A/H1-2009 Not Detected Not Detected 10/06/2024 11:38 PM EDT [facility] Influenza A H3 Not Detected Not Detected 10/06/2024 11:38 PM EDT [facility] Influenza B Not Detected Not Detected 10/06/2024 11:38 [address] EDT [facility] Parainfluenza 1 Not Detected Not Detected 10/06/2024 11:38 PM EDT [facility] Parainfluenza 2 Not Detected Not Detected 10/06/2024 11:38 PM EDT [facility] Parainfluenza 3 Not Detected Not Detected 10/06/2024 11:38 PM EDT [facility] Parainfluenza 4 Not Detected Not Detected 10/06/2024 11:38 PM EDT [facility] Resp. Syncycial Virus A Not Detected Not Detected 10/06/2024 11:38 PM EDT [facility] Resp. Syncycial Virus B Not Detected Not Detected 10/06/2024 11:38 PM EDT [facility] Chlamydia pneumoniae Not Detected Not Detected 10/06/2024 11:38 [address] EDT [facility] Mycoplasma pneumoniae Not Detected Not Detected 10/06/2024 11:38 PM EDT [facility] Comment: The Respiratory Viral-Bacterial Panel is [...] Test results have been sent to the [facility] in accordance with state requirements. For a fact sheet for healthcare providers, see https://www.fda.gov/media/019586/download. For a fact sheet for patients, see https://www.fda.gov/media/613501/download. Nasopharyngeal Swab NASOPHARYNGEAL SWAB / Unknown 10/06/2024 3:12 AM EDT 10/06/2024 5:41 PM EDT Comment:STEM MOUNTER us Bisi Hernandez DO BODY FLUIDS AND STOOLS ORDERABLE S Final Result [facility] [address] [place] [address], [facility] * X-ray Portable Chest (10/06/2024 1:16 AM [...] Cutoff: 10 ng/mL 10/10/2024 3:11 AM EDT [facility] Comment: Phosphatidylethanol (PEth) homologues [...] Cutoff: 10 ng/mL 10/10/2024 3:11 AM EDT [facility] Comment: PEth 16:0/18:2 (PLPEth) Reference ranges are not well established PEth Interpretation Negative. 10/10 3:11 AM EDT [facility] Comment: ADDITIONAL INFORMATION This report is intended for use in clinical monitoring and management of patients. It is not intended for use in employment-related testing. This test was developed and its performance characteristics determined by [facility] in a manner consistent with CLIA requirements. This test has not been cleared or approved by the U.S. Food and Drug Administration. Test Performed by: [facility] [address] Wholesale Account Executive: Kathy Ortiz Ph.D.; CLIA# [id number] Whole Blood 10/06/2024 1:04 AM EDT 10/10/2024 3:11 AM EDT us Bisi Hernandez DO LAB BLOOD ORDERABLES Final Resul t [facility] [address] [place] [address], [facility] * (ABNORMAL) Acetaminophen Level (10/06/2024 1:04 AM EDT) Acetaminophen Level <10(L) 10 - 30 ug/mL 10/06/2024 2:08 AM EDT [facility] Serum 10/06/2024 1:04 AM EDT 10/06/2024 1:30 AM EDT Bisi Hernandez DO LAB BLOOD ORDERABLES Final Resul t [facility] [address] * Ethanol, Serum (10/06/2024 1:04 AM EDT) Ethanol <10 0 - 10 mg/dL 10/06/2024 2:08 AM EDT [facility] Serum 10/06/2024 1:04 AM EDT 10/06/2024 1:30 AM EDT Bisi Hernandez DO LAB BLOOD ORDERABLES Final Resul t Performing Organization Address City/[facility]/ZIP Co de Phone Number [facility] [address] * #2 Blood culture-Peripheral site 2 (10/06/2024 1:04 AM EDT) Culture Result No Growth After [address] [facility] Blood BLOOD SPECIMEN / Unknown 10/06/2024 1:04 AM EDT 10/06/2024 4:57 AM EDT Narrative [facility] - 10/11/2024 5:05 AM EDT Suboptimal volume of blood received. Interpret results with caution. Bisi ScubaTribeana maría DOZIER MICROBIOLOGY - GENERAL ORDERABLE S Final Result [facility] [address] [facility]. [address] * #1 Blood culture-Peripheral site 1 (10/06/2024 1:04 AM EDT) Culture Result No Growth After [address] [facility] Blood BLOOD SPECIMEN / Unknown 10/06/2024 1:04 AM EDT 10/06/2024 4:57 AM EDT Narrative [facility]ALTH [facility] - 10/11/2024 5:01 AM EDT Suboptimal volume of blood received. Interpret results with caution. Bisi Akana maría DO MICROBIOLOGY - GENERAL ORDERABLE S Final Result Performing Organization Address City/[facility]/ZIP Co de Phone Number [facility] [address] [facility]. [address] * Ammonia (10/06/2024 1:04 AM EDT) Ammonia 77 27 - 90 ug/dL 10/06/2024 2:00 AM EDT [facility] Plasma 10/06/2024 1:04 AM EDT 10/06/2024 1:30 AM EDT [facility] LAB BLOOD ORDERABLES Final Resul t Performing Organization Address [facility] Co de Phone Number [facility] [address] [facility]. [address] * Thyroid Function [place] (10/06/2024 1:04 AM EDT) TSH 0.84 0.45 - 4.12 uIU/mL 10/06/2024 2:20 AM EDT [facility] Serum 10/06/2024 1:04 AM EDT 10/06/2024 1:39 AM EDT [facility] LAB BLOOD ORDERABLES Final Resul t Performing Organization Address [facility]/ZIP Co de Phone Number [facility] [address] [facility]. [address] * (ABNORMAL) Protime-INR (10/06/2024 1:04 AM EDT) Protime 22.8(H) 12.1 - 15.1 seconds 10/06/2024 1:48 AM EDT [facility] INR 1.9(H) 0.9 - 1.1 10/06/2024 1:48 [address] EDT [facility] Comment: RECOMMENDED THERAPEUTIC RANGES USING INR : Stable oral anticoagulant therapy: 2.0 - 3.0 Mechanical prosthetic heart valve: 2.5 - 3.5 Recurrent acute myocardial infarction: 2.5 - 3.5 Plasma 10/06/2024 1:04 AM EDT 10/06/2024 1:30 AM EDT us Zocere DO LAB BLOOD ORDERABLES Final Resul t Performing Organization Address City/[facility]/ZIP Co de Phone Number [facility] [address] [facility]. [address] * Lactic Acid, STAT (10/06/2024 1:04 AM EDT) Lactate 1.2 0.5 - 2.2 mmol/L 10/06/2024 1:59 AM EDT [facility] Plasma 10/06/2024 1:04 AM EDT 10/06/2024 1:30 AM EDT us Zocere DO LAB BLOOD ORDERABLES Final Resul t Performing Organization Address [facility] de Phone Number [facility] [address] * (ABNORMAL) CBC, STAT (10/06/2024 1:04 AM EDT) WBC 7.9 3.8 - 10.8 10E3/uL 10/06/2024 2:36 AM EDT [facility] RBC 2.76(L) 4.20 - 5.80 10E6/uL 10/06/2024 2:36 AM EDT [facility] Hemoglobin 9.9(L) 13.2 - 17.1 g/dL 10/06/2024 2:36 AM EDT [facility] Hematocrit 28.0(L) 38.5 - 50.0 % 10/06/2024 2:36 AM EDT [facility] MCV 101.5(H) 80.0 - 100.0 fL 10/06/2024 2:36 AM EDT [facility] MCH 35.7(H) 27.0 - 33.0 pg 10/06/2024 2:36 AM EDT [facility] MCHC 35.2 32.0 - 36.0 g/dL 10/06/2024 2:36 AM EDT [facility] RDW 17.9(H) 11.0 - 15.0 % 10/06/2024 2:36 AM EDT [facility] Platelets 58(L) 140 - 400 10E3/uL 10/06/2024 2:36 AM EDT [facility] Comment: Specimen checked for clots. None detected. Slide Reviewed for PLT Clumps. None Seen. MPV 8.2 7.5 - 11.5 fL 10/06/2024 2:36 [address] EDT [facility] Whole Blood 10/06/2024 1:04 AM EDT 10/06/2024 1:31 AM EDT us Bisi Hernandez DO LAB BLOOD ORDERABLES Final Resul t [facility] [address] * (ABNORMAL) Comprehensive Metabolic Panel (10/06/2024 1:04 AM EDT) Sodium 127(L) 133 - 146 mmol/L 10/06/2024 2:05 AM EDT [facility] Potassium 4.5 3.5 - 5.3 mmol/L 10/06/2024 2:05 AM EDT [facility] Chloride 99 98 - 110 mmol/L 10/06/2024 2:05 AM EDT [facility] CO2 18(L) 21 - 33 mmol/L 10/06/2024 2:05 AM EDT [facility] Anion Gap 10 3 - 16 mmol/L 10/06/2024 2:05 AM EDT [facility] BUN 59(H) 7 - 25 mg/dL 10/06/2024 2:05 AM EDT [facility] Creatinine 3.54(H) 0.60 - 1.30 mg/dL 10/06/2024 2:05 AM EDT [facility] Glucose 116(H) 70 - 100 mg/dL 10/06/2024 2:05 AM EDT [facility] Calcium 9.0 8.6 - 10.3 mg/dL 10/06/2024 2:05 AM EDT [facility] Total Bilirubin 14.8(H) 0.0 - 1.5 mg/dL 10/06/2024 2:05 AM EDT [facility] AST 61(H) 13 - 39 U/L 10/06/2024 2:05 AM EDT [facility] ALT 33 7 - 52 U/L 10/06/2024 2:05 AM EDT [facility] Alkaline Phosphatase 174(H) 36 - 125 U/L 10/06/2024 2:05 AM EDT [facility] Total Protein 5.2(L) 6.4 - 8.9 g/dL 10/06/2024 2:05 AM EDT [facility] Albumin 3.3(L) 3.5 - 5.7 g/dL 10/06/2024 2:05 AM EDT [facility] Osmolality, Calculated 282 278 - 305 mOsm/kg 10/06/2024 2:05 AM EDT [facility] EGFR 21 10/06/2024 2:05 AM EDT [facility] Comment:As of 2021, the [...] DO LAB BLOOD ORDERABLES Final Resul t [facility] [id number] [place] [id number] documented in this encounter Visit Diagnoses Diagnosis [...] patient is non-communicative (CPOT 3-5), Starting on [facility] 10/07/24 at 1205 oxyCODONE (ROXICODONE) immediate [...] IMG once as needed, contrast, Starting on [facility] 10/09/24 at 1536, For 1 dose Given [...] in sodium chloride 0.9 % 250 mL [id number] 1,000 mg, Intravenous, Administer over 60 Minutes, Once, Contact pharmacy if there is a question/concern of whether vancomycin should be given based on serum drug levels. Use [id number] Adapter - Mix Thoroughly Before Administration, Indication? Infection-Suspected, Site of diagnosed infections (select all that apply): Abdominal/Pelvic New Bag 10/08/2024 12:59 PM EDT 1,000 mg 250 mL/hr vancomycin (VANCOCIN) 1,500 mg in sodium chloride 0.9 % 250 mL [id number] 1,500 mg, Intravenous, Administer over 90 Minutes, Once, Contact pharmacy if there is a question/concern of whether vancomycin should be given based on serum drug levels. Use [id number] Adapter - Mix Thoroughly Before Administration, Indication? [...] Patient/family refused) 2032 (Not Given - Provider: oSco Milton RN - Reason: Patient/family refused) methocarbamoL [...] Sun10/07/24 at 1205 2108 (Given - Provider: Chlesy Bush, RN) 0156 (Given - Provider: Chelsy Bush, RN)0635 (Given - Provider: Chelsy Bush, RN)1322 (Given - Provider: Anu Wolff RN)2031 (Given - Provider: Soco Milton RN) 0245 (Given - Provider: Soco Milton RN)0848 (Given - Provider: Suzette Arciniega RN) Linked Groups Order Group 1: oxyCODONE [...] documented as of this encounter Care Teams Box Printer Relationship Specialty Start Date End Date Enedina Mcguire NP [address] [place] [id number] PCP - General Internal Medicine 10/05/24 documented as of this encounter
--- OUTSIDE RECORDS SUMMARY | 2024-10-10 10:36 | XMS_ITS | Encounter Summary ---
Author Organization [facility] Address [facility] [place] [address] Care Team Providers Care Supervisor Forming Department Name Role Phone Enedina Mcguire NP Primary Care Provider [phone] Source Comments This information has been disclosed [...] release of HIV test results or diagnoses. [id number] Health Reason for Visit * Auth/Cert (Routine) Specialty Diagnoses / Procedures Referred By Shane hernadez Referred To Contact General Internal Medicine Diagnoses [facility] [address] [place] [address] Phone: tel: Referral ID Status Reason Start Date Expiration Date Visits Re quested Visits Authorized [id number] 1 1 Encounter Details Date Type Department Care Team (Late st Contact Info) Description 10/10/2024 10:36 AM EDT - 10/10/2024 11:06 AM EDT Surgery [facility] ENDOSCOPY [address] [place] [address] Lino Soto MD [address] [place] [id number] EGD Surgery Details Date/Time Status Location OR Service Patient Class Case Class Case Type Trauma Case? 10/10/2024 10:36 AM Posted ENDOSCOPY E2 Gastroenterology Inpatient EGD/Sm Bowel Panel 1 Procedure LRB Anes Op Region Wound Class Comments EGD N/A MAC (Monitor [facility]) Clean Contaminated Surgeon Surgeon Role Service [...] any time in the past 12 m [facility], were you homeless or living [...] Kandy Fuentes - 10/17/2024 10:29 AM EDT [facility] Care Management Discharge Summary Patient name: [...] post discharge: Not Applicable Kandy BAE RN [phone] * William Blount MD - 10/17/2024 8:50 AM EDT [facility] Inpatient Discharge Summary Patient: Julien Gilbert Age: 39 y.o. CSN: [id number] Date of Admission: 10/05/2024 Date of Discharge: [...] Case IDs Date Procedure Surgeon Location Status [id number] 10/10/24 EGD Lino Soto MD ENDOSCOPY Comp [id number] 10/14/24 Left Heart Cath Irving Matta MD [...] at 10/08/2024 1:12 PM EDT US Duplex Gdx-Hft-Vtlgyeb Comp Final Result IMPRESSION: ABDOMEN 1. Cirrhotic [...] 90 tablet Refills: 0 naloxone 4 mg/actuation [place] Commonly known as: NARCAN Apply 1 spray [...] Your Medications These medications were [facility] to [facility] [address] [facility] [address] Hours: Sunday - Sunday: 8:00AM - 6:00PM FLUoxetine 20 MG capsule lactulose 10 gram/15 mL solution loratadine 10 mg tablet methocarbamoL 500 MG tablet midodrine 10 MG tablet naloxone 4 mg/actuation [place] oxyCODONE 5 MG immediate release tablet Discharge [...] Order Questions: Select Supplement: Boost-1 kcal/ml supplement ([facility] only) As listed above, low sodium [...] AM EDT 10/17/2024 naloxone (NARCAN) 4 mg/actuation [place] Apply 1 spray in one nostril if [...] MD - 10/17/2024 10:23 AM EDT [facility] HEPATOLOGY PROGRESS NOTE Name: Julien Gilbert CSN: [id number] Consulted by: Chelsy Lerner MD Reason for [...] Yes Past Week naloxone (NARCAN) 4 mg/actuation [place] Apply 1 spray in one nostril if [...] nucleated cells, <2000 RBCs 10% Polynuclear, 90% Hardy nuc. There were initial reports of gram [...] of chemical dependency treatment as outpatient. - [facility] with no obstructive coronary disease - Psych eval for PTSD With recommendation of sertraline - Given his renal dysfunction, will plan to list for [facility] when he qualifies on 10/22/2024. Labs next week - Plan for d/c today Bobby Sidhu MD Transplant Supervisor Taping Please see the body of the resident, [...] remains <30 until October 22. Waiting for [facility] today. ASSESSMENT NADIYA on CKD, last [...] Staff. Jeremiah Gamino PGY4 Nephrology. Pager no. [phone] Chief Complaint No chief complaint on file. [...] Hypertension, Other hyperlipidemia (07/26/2024), Renal cell carcinoma ([facility]), Thrombocytopenia ([facility]), and Thyroid disease. he has a past [...] No acute osseous abnormality. Report Verified by: Diaan Devlin MD at 10/08/2024 1:12 PM EDT US Duplex Tmt-Uoj-Tdfkscy Comp Final Result IMPRESSION: ABDOMEN 1. Cirrhotic [...] imaging has been performed at [facility]. -CT Head w/o contrast -Imaging showed [...] Order Questions: Select Supplement: Boost-1 kcal/ml supplement ([facility] only) Code Status: Full Code Signed: WILLIAM BLOUNT MD 10/16/2024, 2:16 PM Cosigned by Chelsy Lerner MD at 10/16/2024 5:38 PM EDT Associated attestation - Chelsy Lerner MD - 10/16/2024 5:38 PM EDT [facility] Medicine Attending [...] another specialty or practice, other licensed professional (PT/OT/RECORDINGS LIBRARIAN/RT), or a non-medical community professional: Hepatology, Interventional [...] due to positioning during LHC on 10/14. [place] the worst in CVR, but has improved [...] Kumar, DMITRY - 10/16/2024 1:08 PM EDT [facility] Medical Nutrition Therapy Follow-Up Diet Order/Nutrition Support: Regular diet, Boost TID - Vanilla preference Pertinent Information: This is a 39 year old male history of ETOH cirrhosis d/b HE, ascites with SBP who is admitted for AMS. Precipitant of his HE likely SBP. Diagnostic paracentesis at OSH reportedly showed 61 nucleated cells, <2000 RBCs 10% Polynuclear, 90% Hardy nuc. There were initial reports of gram [...] Based on CBW of 119.5 kg Kcals/day: 6739-3449 (18-21 kcals/kg) Protein g/day: 119-143 (1-1.2 g/kg) [...] Kumar RD, LD Clinical Dietitian Contact via [employer] * Jerad Hughes MD - 10/16/2024 11:03 AM EDT [facility] HEPATOLOGY PROGRESS NOTE Name: Julien Gilbert CSN: [id number] Consulted by: Chelsy Lerner MD Reason for [...] nucleated cells, <2000 RBCs 10% Polynuclear, 90% Hardy nuc. There were initial reports of gram [...] of chemical dependency treatment as outpatient. - [facility] with no obstructive coronary disease - Psych eval for PTSD With recommendation of sertraline - Given his renal dysfunction, will plan to list for [facility] when he qualifies on 10/22/2024. - Will follow Bobby Sidhu MD Transplant Supervisor Taping Please see the body of the resident, [...] remains <30 until October 22. Waiting for [facility] today. ASSESSMENT NADIYA on CKD, last [...] COMMENT on 10/08/2024 Iron%- Iron replete PLAN -[facility] yesterday- patient remains at risk of contrast related injury on top of exisiting NADIYA for 24-48 hrs after contrast load. -He is volume overloaded -patient needs to follow up closely with nephrology after discharge Thank you for allowing us to participate in this patient's care. Discussed with Consult Staff. Jeremiah Gamino PGY4 Nephrology. Pager no. [phone] Chief Complaint No chief complaint on file. [...] at 10/08/2024 1:12 PM EDT US Duplex Abj-Mih-Yqxvwwu Comp Final Result IMPRESSION: ABDOMEN 1. Cirrhotic [...] not tolerate Stress ECHO on 10/09 - [facility] today -Per GI recs, started on [...] imaging has been performed at [facility]. -CT Head w/o contrast -Imaging showed [...] Order Questions: Select Supplement: Boost-1 kcal/ml supplement ([facility] only) Code Status: Full Code Signed: WILLIAM BLOUNT MD 10/15/2024, 10:49 AM Cosigned by Chelsy Lerner MD at 10/15/2024 2:47 PM EDT Associated attestation - Chelsy Lerner MD - 10/15/2024 2:47 PM EDT [facility] Medicine Attending Supervision Note Julien Gilbert was seen today on rounds with the resident physician. I personally interviewed and examined the patient. I reviewed the documentation by the resident and agree as documented unless otherwise stated below. Reason for today's visit: Acute kidney injury superimposed on CKD ([facility]) Supplemental History / ROS R sided flank [...] another specialty or practice, other licensed professional (PT/OT/RECORDINGS LIBRARIAN/RT), or a non-medical community professional: Hepatology, Interventional [...] due to positioning during LHC on 10/14. [place] the worst in CVR, but has improved [...] MD - 10/15/2024 10:15 AM EDT [facility] HEPATOLOGY PROGRESS NOTE Name: Julien Gilbert CSN: [id number] Consulted by: Chelsy Lerner MD Reason for [...] nucleated cells, <2000 RBCs 10% Polynuclear, 90% Hardy nuc. There were initial reports of gram [...] of chemical dependency treatment as outpatient. - [facility] yesterday with no obstructive coronary disease - Psych eval for PTSD and medical management - Given his renal dysfunction, will plan to list for [facility] when he qualifies on 10/22/2024. - Will follow Bobby Sidhu MD Transplant Supervisor Taping Please see the body of the resident, [...] Quan MD - 10/14/2024 2:34 PM EDT [facility] Department of Cardiovascular Health [...] remains <30 until October 22. Waiting for [facility] today. ASSESSMENT NADIYA on CKD, last discharge creatinine 2.4 Baseline Creatinine 1.2-1.3, HRS- NADIYA as no response to holding lasix and albumin UA bland Urine lytes <10/< 15/ 50 Holding lasix give [facility] today Renal Function: Recent Labs 10/14/24 [...] Staff. Jeremiah Gamino PGY4 Nephrology. Pager no. [phone] Chief Complaint No chief complaint on file. [...] at 10/08/2024 1:12 PM EDT US Duplex Ncc-Ajk-Nlbbtrh Comp Final Result IMPRESSION: ABDOMEN 1. Cirrhotic [...] not tolerate Stress ECHO on 10/09 - [facility] today -Per GI recs, started on [...] imaging has been performed at [facility]. -CT Head w/o contrast -Imaging showed [...] never required dialysis. Patient is going for [facility] today and will receive contrast, okay [...] Order Questions: Select Supplement: Boost-1 kcal/ml supplement ([facility] only) Code Status: Full Code Signed: [...] another specialty or practice, other licensed professional (PT/OT/RECORDINGS LIBRARIAN/RT), or a non-medical community professional: Hepatology, Interventional [...] MD - 10/14/2024 7:42 AM EDT [facility] HEPATOLOGY PROGRESS NOTE Name: Julien Gilbert CSN: [id number] Consulted by: Chelsy Lerner MD Reason for [...] nucleated cells, <2000 RBCs 10% Polynuclear, 90% Hardy nuc. There were initial reports of gram [...] eval ongoing. Transplant work up ongoing - [facility] today - Transplant nephrology following for [...] - Will follow Bobby Sidhu MD Transplant Supervisor Taping Please see the body of the resident, [...] Staff. Jeremiah Gamino PGY4 Nephrology. Pager no. [phone] Chief Complaint No chief complaint on file. [...] MD - 10/13/2024 12:33 PM EDT [facility] HEPATOLOGY PROGRESS NOTE Name: Julien Gilbert CSN: [id number] Consulted by: Fouzia Rene MD Reason for [...] nucleated cells, <2000 RBCs 10% Polynuclear, 90% Hardy nuc. There were initial reports of gram [...] eval ongoing. Transplant work up ongoing - [facility] today - Transplant nephrology following for [...] - Will follow Bobby Sidhu MD Transplant Supervisor Taping Please see the body of the resident, [...] Homagdalena, RD - 10/13/2024 10:49 AM EDT [facility] Medical Nutrition Therapy Reason(s) [...] Order Questions: Select Supplement: Boost-1 kcal/ml supplement ([facility] only) Pertinent Information: Julien Gilbert is a 39 y.o. Male admitted for Acute kidney injury superimposedon CKD ([facility]) Pt noted to have waxing [...] kg) Body mass index is 32.07 kg/m??. Paton Body Weight: 202 lbs (91.8 kg) +/- 10% Weight History: Wt Readings from Last 10 Encounters: 10/10/24 (!) 263 lb 8 oz (119.5 kg) 09/05/24 (!) 262 lb 9.6 oz (119.1 kg) 09/02/24 (!) 258 lb (117 kg) 08/17/24 (!) 242 lb 11.2 oz (110.1 kg) 07/28/24 (!) 245 lb (111.1 kg) Estimated Nutrition Needs: Based on CBW of 119.5 kg Kcals/day: 6333-3646 (18-21 kcals/kg) Protein g/day: 119-143 (1-1-2 g/kg) [...] Dietitian - Solid Organ Transplant Contact via [employer] * Eileen Schroeder MD, PhD - 10/13/2024 8:19 AM EDT Department of Internal Medicine Daily Progress Note Chief Complaint / Reason for Follow-Up Julien Gilbert is a 39 y.o. male on hospital day 8. The principal reason for today's follow up visit is Acute kidney injury superimposed on CKD ([facility]). NAEON Pt felt well this [...] at 10/08/2024 1:12 PM EDT US Duplex Vjc-Dvt-Amheadz Comp Final Result IMPRESSION: ABDOMEN 1. Cirrhotic [...] imaging has been performed at [facility]. -CT Head w/o contrast -Imaging showed [...] Order Questions: Select Supplement: Boost-1 kcal/ml supplement ([facility] only) Code Status: Full Code Signed: [...] reviewed the documentation by the medical team manager and agree as documented. Any [...] was non-diagnostic due to hypotension. Plan for [facility] today, but now moved to tomorrow. [...] when medically ready. Consider d/c home after [facility] tomorrow. FOUZIA RENE MD Attending Physician Department of Internal Medicine 10/13/2024 Medical Decision Making: // LEVEL 2 MOD One chronic illness with exacerbation, progression, or side effects of treatment Discussed with physician/SAWYER from another specialty or practice, other licensed professional (PT/OT/RECORDINGS LIBRARIAN/RT), or a non-medical community professional: Nephrology, Hepatology [...] at 10/08/2024 1:12 PM EDT US Duplex Hsy-Fcw-Iejnlki Comp Final Result IMPRESSION: ABDOMEN 1. Cirrhotic [...] imaging has been performed at [facility]. -CT Head w/o contrast -Imaging showed [...] Order Questions: Select Supplement: Boost-1 kcal/ml supplement ([facility] only) Code Status: Full Code Signed: [...] reviewed the documentation by the medical team manager and agree as documented. Any additions or clarifications are listed below. Daily plan was discussed with patient at bedside and questions addressed. Patient ID: Julien Gilbert is a 39 y.o. male currently admitted for Acute kidney injury superimposed on CKD ([facility]) Supplemental History/ ROS: No acute [...] for Acute kidney injury superimposed on CKD ([facility]) Active Problems: NADIYA (acute kidney injury) on CKD ([facility]): Hepatorenal syndrome. Appreciate nephrology consult. S/p albumin X3. baseline creatinine presumed to be around 2.5. Creatinine improved from its peak and may be now fluctuating around a new baseline. We will continue to monitor. Spontaneous Bacterial Peritonitis ([facility]): He remains afebrile and vital signs have been stable. Received 4 days of vancomycin, Ceftriaxone x 5d. - Restart Cipro prophylaxis Anemia: Multiple contributors. S/p 1 unit PRBC. Hemoglobin responded appropriately and remained stable. Will continue to monitor. Metabolic encephalopathy: Resolved. Likely related to combination of hepatic, metabolic, and possibly infectious insults. - Continue home lactulose and rifaximin Decompensated cirrhosis ([facility]): Appreciate hepatology consult. He has [...] another specialty or practice, other licensed professional (PT/OT/RECORDINGS LIBRARIAN/RT), or a non-medical community professional: Nephrology, Hepatology [...] tid. cardiac workup pre txp. pLan for [facility] Sunday Liver transplant workup per GI/ [...] concern for hepatorenal syndrome.` Patient came from [facility], paracentesis was performed yesterday on 10/05? [...] 706.9 (H) 10/08/2024 No results found for: [id number] , FOLATE Lab Results Component Value Date [...] CRUR No results found for: MICROALBUR , [id number] In addition to the above an extensive [...] 4.6 10/12/2024 Lab Results Component Value Date YMKM98I 7.1 (L) 10/08/2024 PLAN Monitor renal panel [...] AM Colten Huertas MD, KISHOR LIN, FNKF machine candle molder Div. of Nephrology [facility] E-mail: [email or web address] This note was completely edited, written and [...] Rene MD Interval hx No issues. Pending [facility]. Assessment: Renal Function: Cr: 2.77 Bun: [...] tid. cardiac workup pre txp. pLan for [facility] Sunday 4. Liver transplant workup per [...] concern for hepatorenal syndrome.` Patient came from [facility], paracentesis was performed yesterday on 10/05? [...] 706.9 (H) 10/08/2024 No results found for: [id number] , FOLATE Lab Results Component Value Date [...] CRUR No results found for: MICROALBUR , [id number] In addition to the above an extensive [...] 3.5 10/11/2024 Lab Results Component Value Date XFLS70D 7.1 (L) 10/08/2024 PLAN Monitor renal panel [...] AM Colten Huertas MD, KISHOR LIN FNKF machine candle molder Div. of Nephrology [facility] E-mail: [email or web address] This note was completely edited, written and [...] is Acute kidney injury superimposed on CKD ([facility]). NAEON Pt felt much better [...] at 10/08/2024 1:12 PM EDT US Duplex Hmp-Ols-Wyrqvpi Comp Final Result IMPRESSION: ABDOMEN 1. Cirrhotic [...] from outside facility. Will engage with them daily([phone]. Ask to speak to a tech) about [...] imaging has been performed at [facility]. -CT Head w/o contrast -Imaging showed [...] Order Questions: Select Supplement: Boost-1 kcal/ml supplement ([facility] only) Code Status: Full Code Signed: [...] reviewed the documentation by the medical team manager and agree as documented. 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 Not a candidate for terlipressin per [...] Ignacio Queen MD Renal Fellow Pager # [phone] Chief Complaint No chief complaint on file. [...] concern for hepatorenal syndrome.` Patient came from [facility], paracentesis was performed yesterday on 10/05? [...] PHOS -- < > 3.5 3.4 3.3 PQKX18O 7.1* -- -- -- -- < > = values in this interval not displayed. Lab Results Component Value Date IRON 81 10/08/2024 TIBC SEE COMMENT 10/08/2024 FERRITIN 706.9 (H) 10/08/2024 No results found for: [id number] , FOLATE Lab Results Component Value Date [...] CRUR No results found for: MICROALBUR , [id number] In addition to the above an extensive [...] 3.3 10/10/2024 Lab Results Component Value Date ODYQ71W 7.1 (L) 10/08/2024 PLAN Continue IV albumin [...] AM Colten Huertas MD, DELIA, KISHOR, FNKF machine candle molder Div. of Nephrology [facility] E-mail: [email or web address] This note was completely edited, written and [...] to follow pt while pt is at [facility]. * Jodi Ortiz PharmD - 10/10/2024 10:27 AM EDT Clinical Pharmacy Service: Vancomycin Consult Progress Note Patient has been transitioned off of vancomycin therapy per team notes and orders. Pharmacy will sign-off at this time, please do not hesitate to consult again as needs arise. Thank you for involving pharmacy in the care of this patient. Jodi Ortiz PharmD Clinical Bureau Director, Internal Medicine Preferred contact: [employer] Clinical Mnhvkgt-Om-Cdix Pager: [phone] October 10, 2024 10:27 AM Laboratory Data [...] 10/07/2024 10:50 PM Giardia Cryptosporidium Antigens Final [id number] 10/07/2024 10:50 PM Ova and Parasite Comprehensive w/ Giardia/Crypto Final [id number] Feces 10/06/2024 1:04 AM #2 Blood culture-Peripheral site 2 Preliminary [id number] Peripheral 10/06/2024 1:04 AM #1 Blood culture-Peripheral site 1 Preliminary [id number] Peripheral Pharmacokinetics Lab Results (Last 7 days) Today 522 Yesterday 10/08 0536 Vanc Rdm 16.4 11.0 16.0 * Gerri Peterson MD - 10/10/2024 10:09 AM EDT [facility] HEPATOLOGY PROGRESS NOTE Name: Julien Gilbert CSN: [id number] Consulted by: Fouzia Rene MD Reason for [...] nucleated cells, <2000 RBCs 10% Polynuclear, 90% Hardy nuc. Per OSH reports, ascitic fluid cultures [...] to achieving target HR. -cardiology consult for [facility] on Sunday - Transplant nephrology following [...] from the original note were not included. [facility] Clinical Pharmacy Service: Vancomycin Monitoring [...] in sodium chloride 0.9 % 250 mL Gpck0Eyg (Completed) 1,500 mg Once 10/09/2024 10/09/2024 Admin Instructions: Contact pharmacy if there is a question/concern of whether vancomycin should begiven based on serum drug levels. Use Njud1Kir Adapter - Mix Thoroughly Before Administration Route: Intravenous vancomycin (VANCOCIN) 1,500 mg in sodium chloride 0.9 % 250 mL Nmwq1Jml 1,500 mg Once 10/10/2024 10/11/2024 Admin Instructions: Contact pharmacy if there is a question/concern of whether vancomycin should begiven based on serum drug levels. Use Ilil2Zde Adapter - Mix Thoroughly Before Administration Route: [...] in sodium chloride 0.9 % 250 mL Nxxo8Jhk 1,500 mg 166.7 mL/hr 10/08/24 1259 New Bag vancomycin (VANCOCIN) 1,000 mg in sodium chloride 0.9 % 250 mL Ruqe0Sko 1,000 mg 250 mL/hr --Objective Data-- Vitals: [...] 53 53 54 Creatinine 2.85 2.89 3.04 Paton body weight: 86.8 kg (191 lb 5.7 oz) Adjusted ideal body weight: 99.9 kg (220 lb 3.5 oz) Estimated CrCl: ~35-45 mL/min --Cultures-- Microbiology Results Date and Time Order Name Sensitivity Status Organisms Specimen ID Source 10/07/2024 10:50 PM Giardia Cryptosporidium Antigens Final [id number] 10/07/2024 10:50 PM Ova and Parasite Comprehensive w/ Giardia/Crypto Final [id number] Feces 10/06/2024 1:04 AM #2 Blood culture-Peripheral site 2 Preliminary [id number] Peripheral 10/06/2024 1:04 AM #1 Blood culture-Peripheral site 1 Preliminary [id number] Peripheral --Vancomycin Concentrations-- Lab Results (Last 7 [...] for the consult. Jodi Ortiz PharmD Clinical Bureau Director, Internal Medicine Preferred contact: JOOR Clinical Xkrtcrv-Cu-Ypet Pager: [phone] October 10, 2024 9:13 AM * Eileen Schroeder MD, PhD - 10/10/2024 8:17 AM EDT Department of Internal Medicine Daily Progress Note Chief Complaint / Reason for Follow-Up Julien Gilbert is a 39 y.o. male on hospital day 5. The principal reason for today's follow up visit is Acute kidney injury superimposed on CKD ([facility]). DREW Pt was very conversational today. A&O [...] at 10/08/2024 1:12 PM EDT US Duplex Ypn-Zku-Btrjtcp Comp Final Result IMPRESSION: ABDOMEN 1. Cirrhotic liver morphology. No suspicious hepatic lesion. 2. Moderate volume of ascites. 3. Splenomegaly. LIVER DOPPLER 1. Patent hepatic vasculature with normal directional flow. 2. Recanalized umbilical vein as a sequela of portal hypertension, with multiple venous collateralsbordering the falciform ligament. Findings similar to prior. Report Verified by: Albetro Rodriguez MD at 10/07/2024 4:26 PM EDT [...] from outside facility. Will engage with them daily([phone]. Ask to speak to a tech) about [...] imaging has been performed at [facility]. -CT Head w/o contrast -Imaging showed [...] Order Questions: Select Supplement: Boost-1 kcal/ml supplement ([facility] only) Code Status: Full Code Signed: [...] reviewed the documentation by the medical team manager and agree as documented. Any additions or clarifications are listed below. Daily plan was discussed with patient at bedside and questions addressed. Patient ID: Julien Gilbert is a 39 y.o. male currently admitted for Acute kidney injury superimposed on CKD ([facility]) Supplemental History/ ROS: No acute [...] for Acute kidney injury superimposed on CKD ([facility]) Active Problems: Spontaneous Bacterial Peritonitis ([facility]): Cultures from OSH were reported [...] Continue home lactulose and rifaximin [facility] Appreciate hepatology consult. He has started [...] IR. NADIYA (acute kidney injury) on CKD ([facility]): Appreciate nephrology consult. Likely due to hepatorenal [...] another specialty or practice, other licensed professional (PT/OT/RECORDINGS LIBRARIAN/RT), or a non-medical community professional: Nephrology, Hepatology, [...] Strictly monitor urine output No Indication for SET AND EXHIBIT DESIGNER Not a candidate for terlipressin per liver due to HE, liver and kidney failure, on midodrine tid. Considering para today, cardiac workup pre txp Liver transplant workup per GI/ Primary team, considering for SLK, seen by renal transplant team Thank you for allowing us to participate in this patient's care. Discussed with Consult Staff. Ignacio Queen MD Renal Fellow Pager # [phone] Chief Complaint No chief complaint on file. [...] concern for hepatorenal syndrome.` Patient came from [facility], paracentesis was performed yesterday on 10/05? [...] 9.0 9.3 PHOS -- 3.5 3.5 3.4 [id number] 7.1* -- -- -- Lab Results Component Value Date IRON 81 10/08/2024 TIBC SEE COMMENT 10/08/2024 FERRITIN 706.9 (H) 10/08/2024 No results found for: [id number] , FOLATE Lab Results Component Value Date [...] CRUR No results found for: MICROALBUR , [id number] In addition to the above an extensive [...] 3.4 10/09/2024 Lab Results Component Value Date VETQ65K 7.1 (L) 10/08/2024 PLAN Continue IV albumin [...] PM Colten Huertas MD, KISHOR LIN, FNKF machine candle molder Div. of Nephrology [facility] E-mail: [email or web address] This note was completely edited, written and [...] MD - 10/09/2024 1:07 PM EDT [facility] HEPATOLOGY PROGRESS NOTE Name: Julien Gilbert CSN: [id number] Consulted by: Fouzia Rene MD Reason for [...] nucleated cells, <2000 RBCs 10% Polynuclear, 90% Hardy nuc. Fluid cultures reportedly grew gram + [...] from the original note were not included. [facility] Clinical Pharmacy Service: Vancomycin Monitoring [...] in sodium chloride 0.9 % 250 mL Zqvr8Yig (Completed) 1,000 mg Once 10/08/2024 10/08/2024 Admin Instructions: Contact pharmacy if there is a question/concern of whether vancomycin should begiven based on serum drug levels. Use Sxgv4Osm Adapter - Mix Thoroughly Before Administration Route: Intravenous vancomycin (VANCOCIN) 1,500 mg in sodium chloride 0.9 % 250 mL Fgiu9Pkq 1,500 mg Once 10/09/2024 10/10/2024 Admin Instructions: Contact pharmacy if there is a question/concern of whether vancomycin should begiven based on serum drug levels. Use Htlo6Qxw Adapter - Mix Thoroughly Before Administration Route: [...] in sodium chloride 0.9 % 250 mL Zzkl7Guc 1,000 mg 250 mL/hr 10/06/24 1413 New [...] 10/07/2024 10:50 PM Giardia Cryptosporidium Antigens Final [id number] 10/07/2024 10:50 PM Ova and Parasite Comprehensive w/ Giardia/Crypto Final [id number] Feces 10/06/2024 1:04 AM #2 Blood culture-Peripheral site 2 Preliminary [id number] Peripheral 10/06/2024 1:04 AM #1 Blood culture-Peripheral site 1 Preliminary [id number] Peripheral --Vancomycin Concentrations-- Lab Results (Last 7 [...] for the consult. Jodi Ortiz PharmD Clinical Bureau Director, Internal Medicine Preferred contact: JOOR Clinical Bibowci-Ui-Hdvy Pager: [phone] October 09, 2024 8:29 AM * Eileen Schroeder MD, PhD - 10/09/2024 8:00 AM EDT Department of Internal Medicine Daily Progress Note Chief Complaint / Reason for Follow-Up Julien Gilbert is a 39 y.o. male on hospital day 4. The principal reason for today's follow up visit is Acute kidney injury superimposed on CKD ([facility]). DREW and father at bedside Pt fully [...] at 10/08/2024 1:12 PM EDT US Duplex Qum-Myc-Myxwizz Comp Final Result IMPRESSION: ABDOMEN 1. Cirrhotic [...] from outside facility. Will engage with them daily([phone]. Ask to speak to a tech) about [...] imaging has been performed at [facility]. -CT Head w/o contrast -Imaging showed [...] Order Questions: Select Supplement: Boost-1 kcal/ml supplement ([facility] only) Code Status: Full Code Signed: [...] reviewed the documentation by the medical team manager and agree as documented. Any additions or clarifications are listed below. Daily plan was discussed with patient at bedside and questions addressed. Patient ID: Julien Gilbert is a 39 y.o. male currently admitted for Acute kidney injury superimposed on CKD ([facility]) Supplemental History/ ROS: No acute [...] for Acute kidney injury superimposed on CKD ([facility]) Active Problems: Anemia: S/p 1 unit PRBC from yesterday. Hemoglobin responded appropriately and remained stable. Will continue to monitor. Metabolic encephalopathy: Mostly resolved. Likely related to combination of hepatic, metabolic, andpossibly infectious insults. - Continue home lactulose and rifaximin Spontaneous Bacterial Peritonitis ([facility]): Cultures from OSH are growing gram- positive organisms.We continue to await speciation. He remains afebrile and vital signs have been stable. - Continue vancomycin and ceftriaxone for now. - Will follow-up on speciation and sensitivities. Decompensated cirrhosis ([facility]): Appreciate hepatology consult. He has started his transplant evaluation and will continue while inpatient. - MELD labs daily - Continue home regimen with ursodiol, rifaximin and lactulose - Start midodrine 3 times daily - EGD postponed until tomorrow -Planning for stress test today - Due for therapeutic paracentesis in the next day or so. NADIYA (acute kidney injury) on CKD ([facility]): Appreciate nephrology consult. Likely due to hepatorenal syndrome. Now s/p albumin X3. baseline creatinine presumed to be around 2.5. Creatinine slightly lower today. We will continue to monitor. Electrolyte derangements: Replete as needed Neck Pain: He has a history of cervical surgery. Continue oxycodone as needed for pain. Continue tomonitor. Principal Problem: Acute kidney injury superimposed on CKD ([facility]) Active Problems: Decompensated cirrhosis ([facility]) Metabolic encephalopathy Thrombocytopenia ([facility]) Renal mass, left Metabolic acidosis with normal anion gap and bicarbonate losses GERD (gastroesophageal reflux disease) Anemia SBP (spontaneous bacterial peritonitis) ([facility]) Neck pain with history of [...] another specialty or practice, other licensed professional (PT/OT/RECORDINGS LIBRARIAN/RT), or a non-medical community professional: Nephrology, Hepatology Labs reviewed (1 pt each): CBC, CMP, INR & other daily labs Review of notes from a different specialty or different practice: Nephrology, Anesthesiology hepatology, * Gerri Peterson MD - 10/08/2024 1:40 PM EDT [facility] HEPATOLOGY PROGRESS NOTE Name: Julien Gilbert CSN: [id number] Consulted by: Fouzia Rene MD Reason for [...] nucleated cells, <2000 RBCs 10% Polynuclear, 90% Hardy nuc. Fluid cultures reportedly grew gram + [...] disease (ESRD) patient in a hospital based, [facility]-hospital based, or home setting. -At the [...] I have discussed this plan with the education and training coordinator and the liver transplant team. Cosigned [...] from the original note were not included. [facility] Clinical Pharmacy Service: Vancomycin Monitoring [...] in sodium chloride 0.9 % 250 mL Knrm2Vli 1,000 mg Once 10/08/2024 10/09/2024 Admin Instructions: Contact pharmacy if there is a question/concern of whether vancomycin should begiven based on serum drug levels. Use Tlsw1Aer Adapter - Mix Thoroughly Before Administration Route: [...] 10/07/2024 10:50 PM Giardia Cryptosporidium Antigens Final [id number] 10/07/2024 10:50 PM Ova and Parasite Comprehensive w/ Giardia/Crypto In process [id number] Feces 10/06/2024 1:04 AM #2 Blood culture-Peripheral site 2 Preliminary [id number] Peripheral 10/06/2024 1:04 AM #1 Blood culture-Peripheral site 1 Preliminary [id number] Peripheral --Vancomycin Concentrations-- Lab Results (Last 7 [...] for the consult. Jodi Ortiz, PharmD Clinical Bureau Director, Internal Medicine Preferred contact: JOOR Clinical Ayyhexu-Xr-Xxat Pager: [phone] October 08, 2024 9:13 AM * Eileen [...] FREET4 0.74 09/03/2024 Diagnostic Studies US Duplex Ytl-Wfg-Rrdzwwb Comp Final Result IMPRESSION: ABDOMEN 1. Cirrhotic [...] imaging has been performed at [facility]. -CT Head w/o contrast -Imaging showed [...] Order Questions: Select Supplement: Boost-1 kcal/ml supplement ([facility] only) Code Status: Full Code Signed: [...] reviewed the documentation by the medical team manager and agree as documented. Any [...] tomorrow NADIYA (acute kidney injury) on CKD ([facility]): Appreciate nephrology consult. Likely has [...] Problem: Metabolic encephalopathy Active Problems: Decompensated cirrhosis ([facility]) Acute kidney injury superimposed on CKD ([facility]) Thrombocytopenia ([facility]) Renal mass, left Metabolic acidosis with normal anion gap and bicarbonate losses GERD (gastroesophageal reflux disease) Anemia SBP (spontaneous bacterial peritonitis) ([facility]) Neck pain with history of [...] another specialty or practice, other licensed professional (PT/OT/RECORDINGS LIBRARIAN/RT), or a non-medical community professional: Nephrology, Hepatology [...] Strictly monitor urine output No 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 Discussed with Consult Staff. Ignacio Queen MD Renal Fellow Pager # [phone] Chief Complaint No chief complaint on file. [...] concern for hepatorenal syndrome.` Patient came from [facility], paracentesis was performed yesterday on 10/05? [...] TIBC , FERRITIN No results found for: [id number] , FOLATE Lab Results Component Value Date [...] <15 No results found for: MICROALBUR , [id number] In addition to the above an extensive [...] 4.0 10/08/2024 Lab Results Component Value Date PQVV92B 7.1 (L) 10/08/2024 PLAN Continue IV albumin [...] AM Colten Huertas MD, KISHOR LIN, FNKF machine candle molder Div. of Nephrology [facility] E-mail: [email or web address] This note was completely edited, written and [...] from the original note were not included. [facility] Clinical Pharmacy Service: Vancomycin Monitoring [...] AM #2 Blood culture-Peripheral site 2 Preliminary [id number] Peripheral 10/06/2024 1:04 AM #1 Blood culture-Peripheral site 1 Preliminary [id number] Peripheral --Vancomycin Concentrations-- Lab Results (Last 7 [...] for the consult. Jodi Ortiz PharmD Clinical Bureau Director, Internal Medicine Preferred contact: JOOR Clinical Uuhdcnc-Pc-Yfzf Pager: [phone] October 07, 2024 5:01 PM * Yamile [...] MD - 10/07/2024 11:33 AM EDT [facility] HEPATOLOGY PROGRESS NOTE Name: Julien Gilbert CSN: [id number] Consulted by: Fouzia Rene MD Reason for [...] hyperlipidemia 07/26/2024 Renal cell carcinoma (CMS-HCC) Thrombocytopenia ([facility]) Thyroid disease No past surgical history on [...] nucleated cells, <2000 RBCs 10% Polynuclear, 90% Hardy nuc. Fluid cultures reportedly grewgram + rods. [...] selection meeting and clearance by social sciences department chair. Please order CT cardiac coronary evaluation, transplant [...] Strictly monitor urine output No Indication for SET AND EXHIBIT DESIGNER Liver transplant workup per GI/ Primary team Thank you for allowing us to participate in this patient's care. Discussed with Consult Staff. Ignacio Queen MD Renal Fellow Pager # [phone] Chief Complaint No chief complaint on file. [...] concern for hepatorenal syndrome.` Patient came from [facility], paracentesis was performed yesterday on 10/05? [...] TIBC , FERRITIN No results found for: [id number] , FOLATE Lab Results Component Value Date [...] <15 No results found for: MICROALBUR , [id number] In addition to the above an extensive [...] PHOS 4.2 10/07/2024 No results found for: CVWP85D PLAN Continue IV albumin Monitor renal panel [...] AM Colten Huertas MD, KISHOR LIN FNKF machine candle molder Div. of Nephrology [facility] E-mail: [email or web address] * Carmen Dolores, OT - 10/07/2024 11:09 AM EDT Occupational Therapy Initial Assessment and Discharge Name: Julien Gilbert : 1985 Attending Physician: Fouzia Rene MD Admission Diagnosis: AMS Date: 10/07/2024 Room: 42/[facility] Reviewed Pertinent hospital course: Yes [...] at 10/06/2024 2:33 AM EDT US Duplex Ils-Che-Twvmkww Comp (Results Pending) US Abdomen Complete (Results [...] imaging has been performed at [facility]. -CT Head w/o contrast -Imaging showed [...] Order Questions: Select Supplement: Boost-1 kcal/ml supplement ([facility] only) Code Status: Full Code Signed: [...] reviewed the documentation by the medical team manager and agree as documented. Any [...] home lactulose and rifaximin Spontaneous Bacterial Peritonitis ([facility]): Cultures from OSH are growing gram- positive organisms.He is on vancomycin and ceftriaxone for now. Will follow-up on speciation and sensitivities. For now, he is afebrile and his white counts have trended down and mental status is improving. Decompensated cirrhosis ([facility]): Appreciate hepatology consult. He has started his transplant evaluation as an outpatient. We will follow-up with hepatology to discuss any inpatient testing that may need to be needed. - MELD labs daily - Continue home regimen with ursodiol, rifaximin and lactulose NADIYA (acute kidney injury) ([facility]): Appreciate nephrology consult. Likely has [...] kidney disease) stage 4, GFR 15-29 ml/min ([facility]) Metabolic acidosis with normal anion gap and [...] another specialty or practice, other licensed professional (PT/OT/RECORDINGS LIBRARIAN/RT), or a non-medical community professional: Nephrology, Hepatology Labs reviewed (1 pt each): CMP, CBC Test results reviewed (1 pt each): CXR, Head CT Review of notes from a different specialty or different practice: Nephrology, hepatology Use of parenteral controlled substances * Kiet Gardiner, PharmD - 10/06/2024 1:07 PM EDT Images from the original note were not included. [facility] Clinical Pharmacy Service: Vancomycin Monitoring [...] AM #2 Blood culture-Peripheral site 2 Preliminary [id number] Peripheral 10/06/2024 1:04 AM #1 Blood culture-Peripheral site 1 Preliminary [id number] Peripheral --Vancomycin Concentrations-- Lab Results (Last 7 [...] US Retroperitoneal complete (Results Pending) US Duplex Dzg-Bgr-Kgqtlqs Comp (Results Pending) CT Head WO contrast [...] PM EDT Hospital Medicine Attending Supervision Note [facility] Julien Gilbert was seen 10/06/24 [...] Lerner MD - 10/05/2024 2:42 PM EDT [facility] Department of Medicine TRANSFER CALL NOTE Location [facility] ED History of Present Illness Julien [...] nearest ED, with plan to transfer to [facility] if needing admission. In the ED, [...] Studies: Na 129 K 4.2 Cl 101 Tmqbtx55 BUN 62 (up from baseline) Cr 3.6 [...] Quan MD - 10/14/2024 1:10 PM EDT [facility] PRE-SEDATION ASSESSMENT, HISTORY & PHYSICAL [...] Neuro: AOx3 AUC For Cath Indication(s) for Flame Degreaser Visit: Visit Indicators: Suspected CAD 2. Chest Pain Symptom Assessment: Asymptomatic 3. Heart Failure: Yes Class II 4. [facility]SA Clinical Frailty Scale: Mildly Frail Sedation Plan: Moderate Sedation with Local Anesthesia Antibiotic prophylaxis is not indicated. Mani Quan Interventional Carpenter'S Helper Pager: [phone] [1] Patient Active Problem List Diagnosis Decompensated cirrhosis ([facility]) Acute kidney injury superimposed on CKD ([facility]) Alcohol use disorder Metabolic encephalopathy Hypertension Other hyperlipidemia Thrombocytopenia ([facility]) Renal mass, left Abdominal pain Hypokalemia CKD (chronic kidney disease) stage 4, GFR 15-29 ml/min ([facility]) Metabolic acidosis with normal anion gap and bicarbonate losses GERD (gastroesophageal reflux disease) Hypothyroidism Itching Anemia BRBPR (bright red blood per rectum) SBP (spontaneous bacterial peritonitis) ([facility]) C Diff Diarrhea C. difficile diarrhea Neck pain with history of cervical spinal surgery Cosigned by Irving Matta MD at 10/16/2024 10:54 AM EDT Associated attestation - Irving Matta MD - 10/16/2024 10:54 AM EDT Agree * Gerri Peterson MD - 10/10/2024 10:05 AM EDT [facility] PRE-SEDATION ASSESSMENT, HISTORY & PHYSICAL [...] Patient Active Problem List Diagnosis Decompensated cirrhosis ([facility]) Acute kidney injury superimposed on CKD ([facility]) Alcohol use disorder Metabolic encephalopathy Hypertension Other hyperlipidemia Thrombocytopenia ([facility]) Renal mass, left Abdominal pain Hypokalemia CKD (chronic kidney disease) stage 4, GFR 15-29 ml/min ([facility]) Metabolic acidosis with normal anion gap and bicarbonate losses GERD (gastroesophageal reflux disease) Hypothyroidism Itching Anemia BRBPR (bright red blood per rectum) SBP (spontaneous bacterial peritonitis) ([facility]) C Diff Diarrhea C. difficile [...] Resource Strain: Low Risk (07/09/2024) Received from [facility] Overall Financial Resource Strain (CARDIA) Difficulty of [...] No Physical Activity: Unknown (07/14/2024) Received from [facility] Exercise Vital Sign Days of Exercise per Week: Patient unable to answer Minutes of Exercise per Session: Not on file Stress: Patient Unable To Answer (07/14/2024) Received from [facility] [employer] [employer] - Occupational Stress Questionnaire Feeling of Stress : Patient unable to answer Social Connections: Patient Unable To Answer (07/14/2024) Received from [facility] Social Connection and Isolation Panel [NHANES] Frequency of Communication with Friends and Family: Patient unable to answer Frequency of Social Gatherings with Friends and Family: Patient unable to answer Attends Yarsani Services: Patient unable to answer Active Member [...] values in this interval not displayed. Imaging: @[id number]@ I have personally reviewed the imaging and have noted the following: Large recanalized umbilical vein Perihilar varices Replaced right hepatic artery Splenomegaly Spontaneous splenorenal shunt Large volume ascites, No portal vein thrombosis Assessment/Plan: A 39 y.o. male with ETOH decompensated by ascites, hepatic encephalopathy,bleeding esophageal Varices. Use and allocation of SCD, PHOTOVOLTAIC PANEL INSTALLER, DCD and LDLT allografts discussed in detail. [...] from surgery (5%). I also explained the custodial risks of transplantation and immunosuppression including viral infection and cancer both solid organand lymphoma. Kemar Sahni MD, Fellow, Multiorgan Abdominal Transplant Surgery. [facility]. 10/09/2024 3:16 PM [1] [...] Ortiz MD - 10/06/2024 12:00 AM EDT [facility] Internal Medicine - History [...] taken to Radiology overnight for imaging upload. [facility] performed a bedside paracentesis and sent studies for SBP analysis. Willcontact [facility] to see if labs have resulted. Review of Systems 14 pt ROS conducted and negative aside from that mentioned in above HPI Past Medical and Social History Lives in [place], [place] at bedside Notes that the patient [...] OSH Repeat labs pending on admission to [facility] Assessment & Plan Julien Gilbert is [...] AM EDT Hospital Medicine Attending Supervision Note [facility] Julien Gilbert was seen 10/06/24 [...] HE was seen at [facility] ED were CT head unremarkable and RUQ with gallstones, abdominal ascites diagnostic para done and started on empiric CTX. Labs remarkable at OSH for K 4.2 Cl 101 Ykiltd72 BUN 62 (up from baseline) Cr 3.6 [...] another specialty or practice, other licensed professional (PT/OT/RECORDINGS LIBRARIAN/RT), or a non-medical community professional: ed team [...] Medicine Department of Internal Medicine Pager ID: [phone] 6:04 AM, 10/06/2024 documented in this encounter [...] CNP Vascular & Interventional Radiology 10/10/2024,1:55 PM [facility]: [phone] * Lino Soto MD - 10/10/2024 12:06 PM EDT EGD Brief Op Note Julien Gilbert 10/05/2024 - 10/10/2024 Pre-op Diagnosis: Alcoholic cirrhosis of liver with ascites (CMS-HCC) [K70.31] Post-op Diagnosis: Portal gastropathy, Medium size, non-bleeding esophageal varices Procedure(s): EGD Surgeon(s): Lino Soto MD Anesthesia: MAC (Monitor Anesthesia Care) Staff: Fellow: Gerri Peterson MD Endoscopy Nurse: Kandice Castaneda RN Customer Development Representative: Diana Kemp Estimated Blood Loss: Minimal Specimens: Drains: There were no complications unless listed below. LINO SOTO MD Date: 10/10/2024 Time: 12:18 PM * Lino Soto MD - 10/10/2024 11:48 AM EDT [id number] Procedure Date: 10/10/2024 11:48 AM Patient Name: Julien Gilbert Date of : 1985 Admit Type: Inpatient Age: 39 Gender: Male Note Status: Finalized Attending MD: Lino Soto MD, [id number] Procedure: Upper GI endoscopy Indications: Gastroesopahgeal variceal [...] verified by the physician, the nurse, the watch commander and the charge preparation technician in the pre-procedure area in the [...] to hypotension Procedure Code(s): --- Professional --- 08686, GC, Esophagogastroduodenoscopy, flexible, transoral; diagnostic, including collection of specimen(s) by brushing or washing, when performed (separate procedure) Diagnosis Code(s): --- Professional --- I85.00, Esophageal varices without bleeding K76.6, Portal hypertension K31.89, Other diseases of stomach and duodenum CPT copyright 2022 [employer]. All rights reserved. The codes documented in this report are preliminary and upon site supervising technical operator review may be revised to meet current [...] In: 12:10:16 PM Scope Out: 12:17:[address] [place] [address], [id number] * Gill Le RN - 10/09/2024 4:00 [...] time. 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 Describes significant anxiety that [...] need for sleep. Has not been on [facility] since stopping the cymbalta. [...] to his health decline. He was raised Voodoo and denied current engagement in any community [...] or other abnormalities Cognition/Memory: short term and custodial memory intact. Attention and concentration: is not [...] from the original note were not included. [facility] [facility] Consult Note [...] at baseline or with provocation, shows no upvuq-ha-khpf atrial level shunt. - Pulmonary arteries: Systolic [...] 10/13/24, please keep NPO on 10/12/24 at [place] Risks and benefits of new therapies added and new invasive and non-invasive procedures/diagnostic testing planned discussed with and understood by the patient/family who agree with the above plan. Plan discussed with the attending physician Dr. Blanco. Recommendations are preliminary until this note is co- signed by the attending. Follow up appointments with Cardiology can be scheduled by calling [phone]. Thank you for the opportunity to participate in this patient's care. Please call orpage with any questions. Leonor Garcia MD Carpenter'S Helper I have personally seen, examined, reviewed all [...] 0659 10/11/24 0700 - 10/12/24 0659 Shift [id number] 7692-3745 24 Hour Total 6324-6403 0779-3766 8781-4743 24 Hour Total INTAKE P.O. 3329 871 0614 P.O. 9441 412 4322 Boost (mL) - [facility] only 240 240 I.V.(mL/kg) 450(3.8) Volume [...] (See Comments) Became Manic * Bakari Wahl IMMUNOLOGIST - 10/10/2024 10:07 AM EDT Interventional Radiology [...] EZEKIEL Vascular & Interventional Radiology 10/10/2024,1:54 PM [facility]: [id number]) [1] Social History Tobacco Use Smoking Status [...] EDTAssociated Order(s): IP CONSULT TO INFECTIOUS DISEASES [facility] DEPARTMENT OF INFECTIOUS DISEASE INITIAL NOTE Referring Physician: Fouzia Rene MD Consult Attending: Daria Garcia Patient: Julien Gilbert CSN: [id number] Reason for Consult: CC: Abx management History [...] [facility] . No travel to [facility]. 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 [...] Resource Strain: Low Risk (07/09/2024) Received from [facility] Overall Financial Resource Strain (CARDIA) Difficulty of [...] No Physical Activity: Unknown (07/14/2024) Received from [facility] Exercise Vital Sign Days of Exercise per Week: Patient unable to answer Minutes of Exercise per Session: Not on file Stress: Patient Unable To Answer (07/14/2024) Received from [facility] Ug[place] of Occupational Health - Occupational Stress Questionnaire Feeling of Stress : Patient unable to answer Social Connections: Patient Unable To Answer (07/14/2024) Received from [facility] Social Connection and Isolation Panel [NHANES] Frequency of Communication with Friends and Family: Patient unable to answer Frequency of Social Gatherings with Friends and Family: Patient unable to answer Attends Yarsani Services: Patient unable to answer Active Member [...] tablet, Refills: 0 Comments: [facility] [place] [address] sodium bicarbonate 650 MG tablet Take 2 [...] Aphasia [R47.01] 10/06/2024 SBP (spontaneous bacterial peritonitis) ([facility]) [K65.2] 09/08/2024 Metabolic acidosis with normal anion gap and bicarbonate losses [E87.20] 09/03/2024 CKD (chronic kidney disease) stage 4, GFR 15-29 ml/min ([facility]) [N18.4] 09/03/2024 GERD (gastroesophageal reflux disease) [K21.9] 09/03/2024 Renal mass, left [N28.89] 08/18/2024 Thrombocytopenia ([facility]) [D69.6] Decompensated cirrhosis ([facility]) [K72.90, K74.60] 07/25/2024 NADIYA (acute kidney injury) ([facility]) [N17.9] 07/25/2024 Resolved Hospital Problems No resolved [...] Signed: Daria Garcia MD 10/08/2024, 9:46 AM [phone] [1] Allergies Allergen Reactions Adhesive Itching and [...] Resource Strain: Low Risk (07/09/2024) Received from [facility] Overall Financial Resource Strain (CARDIA) Difficulty of [...] No Physical Activity: Unknown (07/14/2024) Received from [facility] Exercise Vital Sign Days of Exercise per Week: Patient unable to answer Minutes of Exercise per Session: Not on file Stress: Patient Unable To Answer (07/14/2024) Received from [facility] [place] of Occupational Health - Occupational Stress Questionnaire Feeling of Stress : Patient unable to answer Social Connections: Patient Unable To Answer (07/14/2024) Received from [facility] Social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 received and transported to the [facility] at [address] [place] [address]. The [facility] will report results directly to the client. Serum 10/15/2024 6:08 AM EDT 10/15/2024 6:42 AM EDT us Cosmo Pacheco MD LAB BLOOD ORDERABLES Final Resul t [facility] [address] [place] [address] * LEFT HEART CATH (10/14/2024 2:09 PM EDT) 10/14/2024 11:4 7 AM EDT Narrative [facility] - 10/14/2024 9:27 PM EDT *[facility]* Cardiac Flame Degreaser [address] [place] [address] CATHETERIZATION LAB STUDY Patient: Julien Gilbert Age: [...] manner. 3. Right radial artery access. A [id number] Glidesheath - Slender - .021 sheath was [...] + + !LV pressure s/d, ed !, dP/dj=5256xr Hg/s! + + + !Aortic pressure s/d (m)!106/58 (75) ! + + + ATTESTATION: Dr. Matta was present for the entire procedure. Dr. Jay Quan was the initial author of this report. Prepared and electronically signed by Irving Matta MD [id number]:27:50 Procedure Note Irving Matta MD - 10/14/2024 *[facility]* Cardiac Flame Degreaser [address] [place] [address] CATHETERIZATION LAB STUDY Patient: Julien Gilbert Age: [...] manner. 3. Right radial artery access. A [id number] Glidesheath - Slender - .021sheath was advanced [...] complications. Contrast: Omnipaque 350 25ml (total dose). [id number] 125ml (wasted). Radiation: Fluoroscopy time: 15min. Total [...] + + !LV pressure s/d, ed !, dP/ft=1676ob Hg/s! + + + !Aortic pressure s/d (m)!106/58 (75) ! + + + ATTESTATION: Dr. Matta was present for the entire procedure. Dr. Jay Quan wasthe initial author of this report. Prepared and electronically signed by Irving Matta MD [id number]:27:50 [place] [id number] Final Result Performing Organization Address [facility] de Phone Number [facility] * Transfuse Fresh Frozen Plasma Transfusion Rate: Per dept routine (10/14/2024 2:08 PM EDT) us Eleazar Nguyễn MD NURSING TREATMENT ORDER PAL - BLOOD ADMIN Final Result Performing Organization Address [facility] de Phone Number EXTERNAL * Transfuse Fresh Frozen Plasma Transfusion Rate: Per dept routine, 1 Units (10/14/2024 2:08 PM EDT) us Eleazar Nguyễn MD NURSING TREATMENT ORDER PAL - BLOOD ADMIN Final Result Performing Organization Address [facility] de Phone Number EXTERNAL * Transfuse [...] Antibody Screen Negative 10/14/2024 9:11 AM EDT [facility] Blood 10/14/2024 8:21 AM EDT 10/14/2024 8:33 AM EDT Narrative [facility] - 10/14/2024 9:26 AM EDT Testing performed by [facility] Transfusion Service Eleazar Nguyễn MD BLOOD BANK TEST ORDERAB LES Final Result Performing Organization Address [facility] Co de Phone Number [facility] [address] [facility] * ABO/Rh (10/14/2024 8:21 AM EDT) ABO Grouping O 10/14/2024 8:55 AM EDT [facility] Rh Type Positive 10/14/2024 8:55 AM EDT [facility] Blood 10/14/2024 8:21 AM EDT 10/14/2024 8:33 AM EDT us Eleazar Nguyễn MD BLOOD BANK TEST ORDERAB LES Final Result Performing Organization Address [facility] Co de Phone Number [facility] [address] [facility] * (ABNORMAL) Protime-INR (10/14/2024 2:53 AM EDT) Protime 23.8(H) 12.1 - 15.1 seconds 10/14/2024 4:34 AM EDT [facility] INR 2.1(H) 0.9 - 1.1 10/14/2024 4:34 AM EDT [facility] Comment: RECOMMENDED THERAPEUTIC RANGES USING INR : Stable oral anticoagulant therapy: 2.0 - 3.0 Mechanical prosthetic heart valve: 2.5 - 3.5 Recurrent acute myocardial infarction: 2.5 - 3.5 Plasma 10/14/2024 2:53 AM EDT 10/14/2024 4:16 AM EDT Eileen Schroeder MD, PhD LAB BLOOD ORDERABLES Final Result [facility] [address] [address], [facility] * (ABNORMAL) Hepatic Function Panel (10/14/2024 2:53 AM EDT) Total Bilirubin 7.2(H) 0.0 - 1.5 mg/dL 10/14/2024 4:45 AM EDT [facility] Bilirubin, Direct 3.86(H) 0.00 - 0.40 mg/dL 10/14/2024 4:45 AM EDT [facility] AST 41(H) 13 - 39 U/L 10/14/2024 4:45 AM EDT [facility] ALT 22 7 - 52 U/L 10/14/2024 4:45 AM EDT [facility] Alkaline Phosphatase 119 36 - 125 U/L 10/14/2024 4:45 AM EDT [facility] Total Protein 4.6(L) 6.4 - 8.9 g/dL 10/14/2024 4:45 AM EDT [facility] Albumin 3.3(L) 3.5 - 5.7 g/dL 10/14/2024 4:45 AM EDT [facility] Bilirubin, Indirect 3.34(H) 0.00 - 1.10 mg/dL 10/14/2024 4:45 AM EDT [facility] Plasma 10/14/2024 2:53 AM EDT 10/14/2024 4:16 AM EDT Eileen Schroeder MD, PhD LAB BLOOD ORDERABLES Final Result [facility] [address] [facility]. [address] * Magnesium (10/14/2024 2:53 AM EDT) Magnesium 1.9 1.5 - 2.5 mg/dL 10/14/2024 4:45 AM EDT [facility] Plasma 10/14/2024 2:53 AM EDT 10/14/2024 4:16 AM EDT us Eileen Schroeder MD, PhD LAB BLOOD ORDERABLES Final Result Performing Organization Address City/[facility]/ZIP Co de Phone Number [facility] [address] [facility]. [address] * (ABNORMAL) Renal Function Panel w/EGFR (10/14/2024 2:53 AM EDT) Sodium 136 133 - 146 mmol/L 10/14/2024 4:45 AM EDT [facility] Potassium 3.5 3.5 - 5.3 mmol/L 10/14/2024 4:45 AM EDT [facility] Chloride 107 98 - 110 mmol/L 10/14/2024 4:45 AM EDT [facility] CO2 16(L) 21 - 33 mmol/L 10/14/2024 4:45 AM EDT [facility] Anion Gap 13 3 - 16 mmol/L 10/14/2024 4:45 AM EDT [facility] BUN 55(H) 7 - 25 mg/dL 10/14/2024 4:45 AM EDT [facility] Creatinine 3.01(H) 0.60 - 1.30 mg/dL 10/14/2024 4:45 AM EDT [facility] Glucose 95 70 - 100 mg/dL 10/14/2024 4:45 AM EDT [facility] Calcium 8.5(L) 8.6 - 10.3 mg/dL 10/14/2024 4:45 AM EDT [facility] Phosphorus 4.4 2.1 - 4.7 mg/dL 10/14/2024 4:45 AM EDT [facility] Albumin 3.3(L) 3.5 - 5.7 g/dL 10/14/2024 4:45 AM EDT [facility] Osmolality, Calculated 297 278 - 305 mOsm/kg 10/14/2024 4:45 AM EDT [facility] EGFR 26 10/14/2024 4:45 AM EDT [facility] Comment:As of 2021, the [...] MD, PhD LAB BLOOD ORDERABLES Final Result [facility] [address] [address], [facility] * (ABNORMAL) CBC (10/14/2024 2:53 AM EDT) WBC 5.5 3.8 - 10.8 10E3/uL 10/14/2024 5:00 AM EDT [facility] RBC 2.09(L) 4.20 - 5.80 10E6/uL 10/14/2024 5:00 AM EDT [facility] Hemoglobin 7.6(L) 13.2 - 17.1 g/dL 10/14/2024 5:00 AM EDT [facility] Hematocrit 21.3(L) 38.5 - 50.0 % 10/14/2024 5:00 AM EDT [facility] MCV 101.7(H) 80.0 - 100.0 fL 10/14/2024 5:00 AM EDT [facility] MCH 36.3(H) 27.0 - 33.0 pg 10/14/2024 5:00 AM EDT [facility] MCHC 35.7 32.0 - 36.0 g/dL 10/14/2024 5:00 AM EDT [facility] RDW 17.6(H) 11.0 - 15.0 % 10/14/2024 5:00 AM EDT [facility] Platelets 35(L) 140 - 400 10E3/uL 10/14/2024 5:00 AM EDT [facility] Comment: Specimen checked for clots. None detected. Slide Reviewed for PLT Clumps. None Seen. MPV 8.5 7.5 - 11.5 fL 10/14/2024 5:00 AM EDT [facility] Whole Blood 10/14/2024 2:53 AM EDT 10/14/2024 4:17 AM EDT us Eileen Schroeder MD, PhD LAB BLOOD ORDERABLES Final Result [facility] [address] [address], [facility] * Cardiac Cath Documents Scan (10/14/2024 [...] mL of GADOBUTROL 1 MMOL/ML INTRAVENOUS SYRINGE ([facility]) administered intravenously COMPARISON: CT 09/03/2024. Ultrasound [...] mL of GADOBUTROL 1 MMOL/ML INTRAVENOUS SYRINGE ([facility])administered intravenously COMPARISON: CT 09/03/2024. Ultrasound 10/07/2024. [...] * (ABNORMAL) Protime-INR (10/13/2024 5:35 AM EDT) [facility] Protime 24.4(H) 12.1 - 15.1 seconds 10/13/2024 6:12 AM EDT [facility] INR 2.1(H) 0.9 - 1.1 10/13/2024 6:12 AM EDT [facility] Comment: RECOMMENDED THERAPEUTIC RANGES USING INR : Stable oral anticoagulant therapy: 2.0 - 3.0 Mechanical prosthetic heart valve: 2.5 - 3.5 Recurrent acute myocardial infarction: 2.5 - 3.5 Plasma 10/13/2024 5:35 AM EDT 10/13/2024 5:52 AM EDT Eileen Schroeder MD, PhD LAB BLOOD ORDERABLES Final Result [facility] [address] * (ABNORMAL) Hepatic Function Panel (10/13/2024 5:35 AM EDT) [facility] Total Bilirubin 6.5(H) 0.0 - 1.5 mg/dL 10/13/2024 6:30 AM EDT [facility] Bilirubin, Direct 3.53(H) 0.00 - 0.40 mg/dL 10/13/2024 6:30 AM EDT [facility] AST 42(H) 13 - 39 U/L 10/13/2024 6:30 AM EDT [facility] ALT 19 7 - 52 U/L 10/13/2024 6:30 AM EDT [facility] Alkaline Phosphatase 108 36 - 125 U/L 10/13/2024 6:30 AM EDT [facility] Total Protein 4.4(L) 6.4 - 8.9 g/dL 10/13/2024 6:30 AM EDT [facility] Albumin 3.1(L) 3.5 - 5.7 g/dL 10/13/2024 6:30 AM EDT [facility] Bilirubin, Indirect 2.97(H) 0.00 - 1.10 mg/dL 10/13/2024 6:30 AM EDT [facility] Plasma 10/13/2024 5:35 AM EDT 10/13/2024 5:52 AM EDT Eileen Schroeder MD, PhD LAB BLOOD ORDERABLES Final Result Performing Organization Address City/[facility]/ZIP Co de Phone Number [facility] [address] [place] [address] * Magnesium (10/13/2024 5:35 AM EDT) Magnesium 2.0 1.5 - 2.5 mg/dL 10/13/2024 6:30 AM EDT [facility] Plasma 10/13/2024 5:35 AM EDT 10/13/2024 5:52 AM EDT us Eileen Schroeder MD, PhD LAB BLOOD ORDERABLES Final Result Performing Organization Address [facility] Co de Phone Number [facility] [address] [place] [address] * (ABNORMAL) Renal Function Panel w/EGFR (10/13/2024 5:35 AM EDT) Sodium 134 133 - 146 mmol/L 10/13/2024 6:30 AM EDT [facility] Potassium 3.7 3.5 - 5.3 mmol/L 10/13/2024 6:30 AM EDT [facility] Chloride 109 98 - 110 mmol/L 10/13/2024 6:30 AM EDT [facility] CO2 14(L) 21 - 33 mmol/L 10/13/2024 6:30 AM EDT [facility] Anion Gap 11 3 - 16 mmol/L 10/13/2024 6:30 AM EDT [facility] BUN 54(H) 7 - 25 mg/dL 10/13/2024 6:30 AM EDT [facility] Creatinine 2.99(H) 0.60 - 1.30 mg/dL 10/13/2024 6:30 AM EDT [facility] Glucose 116(H) 70 - 100 mg/dL 10/13/2024 6:30 AM EDT [facility] Calcium 8.3(L) 8.6 - 10.3 mg/dL 10/13/2024 6:30 AM EDT [facility] Phosphorus 4.5 2.1 - 4.7 mg/dL 10/13/2024 6:30 AM EDT [facility] Albumin 3.1(L) 3.5 - 5.7 g/dL 10/13/2024 6:30 AM EDT [facility] Osmolality, Calculated 294 278 - 305 mOsm/kg 10/13/2024 6:30 AM EDT [facility] EGFR 26 10/13/2024 6:30 AM EDT [facility] Comment:As of 2021, the [...] MD, PhD LAB BLOOD ORDERABLES Final Result [facility] [address] [facility] [place] [address], [facility] * (ABNORMAL) CBC (10/13/2024 5:35 AM EDT) WBC 4.7 3.8 - 10.8 10E3/uL 10/13/2024 6:22 AM EDT [facility] RBC 2.06(L) 4.20 - 5.80 10E6/uL 10/13/2024 6:22 AM EDT [facility] Hemoglobin 7.4(L) 13.2 - 17.1 g/dL 10/13/2024 6:22 AM EDT [facility] Hematocrit 21.7(L) 38.5 - 50.0 % 10/13/2024 6:22 AM EDT [facility] MCV 105.4(H) 80.0 - 100.0 fL 10/13/2024 6:22 AM EDT [facility] MCH 35.9(H) 27.0 - 33.0 pg 10/13/2024 6:22 AM EDT [facility] MCHC 34.0 32.0 - 36.0 g/dL 10/13/2024 6:22 AM EDT [facility] RDW 18.5(H) 11.0 - 15.0 % 10/13/2024 6:22 AM EDT [facility] Platelets 35(L) 140 - 400 10E3/uL 10/13/2024 6:22 AM EDT [facility] Comment: CNV Specimen checked for clots. None detected. MPV 8.4 7.5 - 11.5 fL 10/13/2024 6:22 AM EDT [facility] Whole Blood 10/13/2024 5:35 AM EDT 10/13/2024 5:53 AM EDT us Eileen Schroeder MD, PhD LAB BLOOD ORDERABLES Final Result [facility] [address] * (ABNORMAL) Ammonia (10/13/2024 5:35 AM EDT) Ammonia 203(HH) 27 - 90 ug/dL 10/13/2024 7:16 AM EDT [facility] Comment: HEMOLYSIS EVIDENT. RESULTS MAY BE INFLUENCED. Critical Result [id number] Called to and read back by: KEY MELO RN at: 10/13/2024 07:15:55 by:CASESE Plasma 10/13/2024 5:35 AM EDT 10/13/2024 6:19 AM EDT Ellis Mays DO LAB BLOOD ORDERABLES Final Resul t Performing Organization Address [facility] Co de Phone Number [facility] [address] [facility] * CARISA Rhythm Strip - Scan (10/12/2024 10:30 PM EDT) us Scanning [employer] SCAN DOCS - NO RESULTS Final Res ult * (ABNORMAL) Protime-INR (10/12/2024 5:44 AM EDT) Protime 25.7(H) 12.1 - 15.1 seconds 10/12/2024 6:12 AM EDT [facility] INR 2.3(H) 0.9 - 1.1 10/12/2024 6:12 AM EDT [facility] Comment: RECOMMENDED THERAPEUTIC RANGES USING INR : Stable oral anticoagulant therapy: 2.0 - 3.0 Mechanical prosthetic heart valve: 2.5 - 3.5 Recurrent acute myocardial infarction: 2.5 - 3.5 Plasma 10/12/2024 5:44 AM EDT 10/12/2024 5:58 AM EDT Eileen Schroeder MD, PhD LAB BLOOD ORDERABLES Final Result Performing Organization Address [facility] Co de Phone Number [facility] [address] [facility] * (ABNORMAL) Hepatic Function Panel (10/12/2024 5:44 AM EDT) Total Bilirubin 6.5(H) 0.0 - 1.5 mg/dL 10/12/2024 6:29 AM EDT [facility] Bilirubin, Direct 3.64(H) 0.00 - 0.40 mg/dL 10/12/2024 6:29 AM EDT [facility] AST 40(H) 13 - 39 U/L 10/12/2024 6:29 AM EDT [facility] ALT 19 7 - 52 U/L 10/12/2024 6:29 AM EDT [facility] Alkaline Phosphatase 99 36 - 125 U/L 10/12/2024 6:29 AM EDT [facility] Total Protein 4.2(L) 6.4 - 8.9 g/dL 10/12/2024 6:29 AM EDT [facility] Albumin 3.1(L) 3.5 - 5.7 g/dL 10/12/2024 6:29 AM EDT [facility] Bilirubin, Indirect 2.86(H) 0.00 - 1.10 mg/dL 10/12/2024 6:29 AM EDT [facility] Plasma 10/12/2024 5:44 AM EDT 10/12/2024 5:58 AM EDT Eileen Schroeder MD, PhD LAB BLOOD ORDERABLES Final Result Performing Organization Address City/[facility]/ZIP Co de Phone Number [facility] [address] * Magnesium (10/12/2024 5:44 AM EDT) Magnesium 1.9 1.5 - 2.5 mg/dL 10/12/2024 6:29 AM EDT [facility] Plasma 10/12/2024 5:44 AM EDT 10/12/2024 5:58 AM EDT Eileen Schroeder MD, PhD LAB BLOOD ORDERABLES Final Result [facility] [address] * (ABNORMAL) Renal Function Panel w/EGFR (10/12/2024 5:44 AM EDT) Sodium 135 133 - 146 mmol/L 10/12/2024 6:29 AM EDT [facility] Potassium 3.7 3.5 - 5.3 mmol/L 10/12/2024 6:29 AM EDT [facility] Chloride 109 98 - 110 mmol/L 10/12/2024 6:29 AM EDT [facility] CO2 17(L) 21 - 33 mmol/L 10/12/2024 6:29 AM EDT [facility] Anion Gap 9 3 - 16 mmol/L 10/12/2024 6:29 AM EDT [facility] BUN 52(H) 7 - 25 mg/dL 10/12/2024 6:29 AM EDT [facility] Creatinine 2.94(H) 0.60 - 1.30 mg/dL 10/12/2024 6:29 AM EDT [facility] Glucose 121(H) 70 - 100 mg/dL 10/12/2024 6:29 AM EDT [facility] Calcium 8.5(L) 8.6 - 10.3 mg/dL 10/12/2024 6:29 AM EDT [facility] Phosphorus 4.6 2.1 - 4.7 mg/dL 10/12/2024 6:29 AM EDT [facility] Albumin 3.1(L) 3.5 - 5.7 g/dL 10/12/2024 6:29 AM EDT [facility] Osmolality, Calculated 295 278 - 305 mOsm/kg 10/12/2024 6:29 AM EDT [facility] EGFR 27 10/12/2024 6:29 AM EDT [facility] Comment:As of 2021, the [...] LAB BLOOD ORDERABLES Final Result [facility] [address] [place] [address], [facility] * (ABNORMAL) CBC (10/12/2024 5:44 AM EDT) WBC 3.3(L) 3.8 - 10.8 10E3/uL 10/12/2024 7:06 AM EDT [facility] RBC 1.95(L) 4.20 - 5.80 10E6/uL 10/12/2024 7:06 AM EDT [facility] Hemoglobin 7.2(L) 13.2 - 17.1 g/dL 10/12/2024 7:06 AM EDT [facility] Hematocrit 19.7(L) 38.5 - 50.0 % 10/12/2024 7:06 AM EDT [facility] MCV 101.2(H) 80.0 - 100.0 fL 10/12/2024 7:06 AM EDT [facility] MCH 37.0(H) 27.0 - 33.0 pg 10/12/2024 7:06 AM EDT [facility] MCHC 36.5(H) 32.0 - 36.0 g/dL 10/12/2024 7:06 AM EDT [facility] RDW 17.6(H) 11.0 - 15.0 % 10/12/2024 7:06 AM EDT [facility] Platelets 30(L) 140 - 400 10E3/uL 10/12/2024 7:06 AM EDT [facility] Comment: Specimen checked for clots. None detected. Slide Reviewed for PLT Clumps. None Seen. Platelet Estimate Decreased 10/12/2024 7:06 AM EDT [facility] MPV 8.3 7.5 - 11.5 fL 10/12/2024 7:06 AM EDT [facility] Whole Blood 10/12/2024 5:44 AM EDT 10/12/2024 5:58 AM EDT Narrative [facility] - 10/12/2024 7:06 AM EDT Peripheral blood smear was scanned per review criteria approved by the laboratory medical record consultant. Eileen Schroeder MD, PhD LAB BLOOD ORDERABLES Final Result Performing Organization Address [facility] Co de Phone Number [facility] [address] * CARISA Rhythm Strip - Scan (10/11/2024 10:04 PM EDT) us Scanning Uch[employer] SCAN DOCS - NO RESULTS Final Res ult * (ABNORMAL) Protime-INR (10/11/2024 3:02 AM EDT) Protime 26.8(H) 12.1 - 15.1 seconds 10/11/2024 3:30 AM EDT [facility] INR 2.4(H) 0.9 - 1.1 10/11/2024 3:30 AM EDT [facility] Comment: RECOMMENDED THERAPEUTIC RANGES USING INR : Stable oral anticoagulant therapy: 2.0 - 3.0 Mechanical prosthetic heart valve: 2.5 - 3.5 Recurrent acute myocardial infarction: 2.5 - 3.5 Plasma 10/11/2024 3:02 AM EDT 10/11/2024 3:08 AM EDT Result [facility] Eileen Schroeder MD, PhD LAB BLOOD ORDERABLES Final Result Performing Organization Address [facility] Co de Phone Number [facility] [address] [facility]. [address] * (ABNORMAL) Hepatic Function Panel (10/11/2024 3:02 AM EDT) Total Bilirubin 7.3(H) 0.0 - 1.5 mg/dL 10/11/2024 3:38 AM EDT [facility] Bilirubin, Direct 3.85(H) 0.00 - 0.40 mg/dL 10/11/2024 3:38 AM EDT [facility] AST 39 13 - 39 U/L 10/11/2024 3:38 AM EDT [facility] ALT 20 7 - 52 U/L 10/11/2024 3:38 AM EDT [facility] Alkaline Phosphatase 88 36 - 125 U/L 10/11/2024 3:38 AM EDT [facility] Total Protein 4.5(L) 6.4 - 8.9 g/dL 10/11/2024 3:38 AM EDT [facility] Albumin 3.3(L) 3.5 - 5.7 g/dL 10/11/2024 3:38 AM EDT [facility] Bilirubin, Indirect 3.45(H) 0.00 - 1.10 mg/dL 10/11/2024 3:38 AM EDT [facility] Plasma 10/11/2024 3:02 AM EDT 10/11/2024 3:08 AM EDT Eileen Schroeder MD, PhD LAB BLOOD ORDERABLES Final Result Performing Organization Address [facility] Co de Phone Number [facility] [address] * Magnesium (10/11/2024 3:02 AM EDT) Magnesium 2.0 1.5 - 2.5 mg/dL 10/11/2024 3:38 AM EDT [facility] Plasma 10/11/2024 3:02 AM EDT 10/11/2024 3:08 AM EDT Eileen Schroeder MD, PhD LAB BLOOD ORDERABLES Final Result Performing Organization Address [facility]/ZIP Co de Phone Number [facility] [address] * (ABNORMAL) Renal Function Panel w/EGFR (10/11/2024 3:02 AM EDT) Sodium 134 133 - 146 mmol/L 10/11/2024 3:38 AM EDT [facility] Potassium 3.6 3.5 - 5.3 mmol/L 10/11/2024 3:38 AM EDT [facility] Chloride 108 98 - 110 mmol/L 10/11/2024 3:38 AM EDT [facility] CO2 16(L) 21 - 33 mmol/L 10/11/2024 3:38 AM EDT [facility] Anion Gap 10 3 - 16 mmol/L 10/11/2024 3:38 AM EDT [facility] BUN 49(H) 7 - 25 mg/dL 10/11/2024 3:38 AM EDT [facility] Creatinine 2.77(H) 0.60 - 1.30 mg/dL 10/11/2024 3:38 AM EDT [facility] Glucose 112(H) 70 - 100 mg/dL 10/11/2024 3:38 AM EDT [facility] Calcium 8.9 8.6 - 10.3 mg/dL 10/11/2024 3:38 AM EDT [facility] Phosphorus 3.5 2.1 - 4.7 mg/dL 10/11/2024 3:38 AM EDT [facility] Albumin 3.3(L) 3.5 - 5.7 g/dL 10/11/2024 3:38 AM EDT [facility] Osmolality, Calculated 292 278 - 305 mOsm/kg 10/11/2024 3:38 AM EDT [facility] EGFR 29 10/11/2024 3:38 AM EDT [facility] Comment:As of 2021, the [...] MD, PhD LAB BLOOD ORDERABLES Final Result [facility] [address] [place] [address], [facility] * (ABNORMAL) CBC (10/11/2024 3:02 AM EDT) WBC 4.0 3.8 - 10.8 10E3/uL 10/11/2024 3:55 AM EDT [facility] RBC 2.11(L) 4.20 - 5.80 10E6/uL 10/11/2024 3:55 AM EDT [facility] Hemoglobin 7.7(L) 13.2 - 17.1 g/dL 10/11/2024 3:55 AM EDT [facility] Hematocrit 21.2(L) 38.5 - 50.0 % 10/11/2024 3:55 AM EDT [facility] MCV 100.5(H) 80.0 - 100.0 fL 10/11/2024 3:55 AM EDT [facility] MCH 36.4(H) 27.0 - 33.0 pg 10/11/2024 3:55 AM EDT [facility] MCHC 36.2(H) 32.0 - 36.0 g/dL 10/11/2024 3:55 AM EDT [facility] RDW 17.9(H) 11.0 - 15.0 % 10/11/2024 3:55 AM EDT [facility] Platelets 32(L) 140 - 400 10E3/uL 10/11/2024 3:55 AM EDT [facility] Comment: Specimen checked for clots. None detected. Slide Reviewed for PLT Clumps. None Seen. Platelet Estimate Decreased 10/11/2024 3:55 AM EDT [facility] MPV 8.1 7.5 - 11.5 fL 10/11/2024 3:55 AM EDT [facility] Whole Blood 10/11/2024 3:02 AM EDT 10/11/2024 3:08 AM EDT Narrative [facility] - 10/11/2024 3:55 AM EDT Peripheral blood smear was scanned per review criteria approved by the laboratory medical record consultant. us Eileen Schroeder MD, PhD LAB BLOOD ORDERABLES Final Result [facility] [address] [facility] * Vancomycin, random (10/11/2024 3:02 AM EDT) Vancomycin Random 13.4 ug/mL 10/11/2024 3:37 AM EDT [facility] Comment:Reference range not established for this test. Plasma 10/11/2024 3:02 AM EDT 10/11/2024 3:08 AM EDT us Jodi Ortiz PharmD LAB BLOOD ORDERABLES Final Result Performing Organization Address [facility] Co de Phone Number [facility] [address] [facility] * IR Paracentesis incl imaging guide [...] diagnostic and therapeutic paracentesis. Bakari Wahl CNP, Fiberglass Technician Procedure and Findings: The procedure was performed [...] Using ultrasound guidance, a 10 cm, 5-F [employer] Centesis catheter was placed into the right [...] for diagnostic andtherapeutic paracentesis. Bakari Wahl CNP, Fiberglass Technician Procedure and Findings: The procedure was performed [...] Clarity, Fluid Clear 10/10/2024 5:29 PM EDT [facility] Neutrophil %, Fluid 9 % 10/10/2024 5:29 PM EDT [facility] Lymphocytes %, Fluid 13 % 10/10/2024 5:29 PM EDT [facility] Mesothelial %, Fluid 6 % 10/10/2024 5:29 PM EDT [facility] Macrophage %, Fluid 72 % 10/10/2024 5:29 PM EDT [facility] RBC, Fluid 2,662 /uL 10/10/2024 4:41 PM EDT [facility] Total Nucleated Cells, Fluid 89 /uL 10/10/2024 4:41 PM EDT [facility] Comment:Total Nucleated Cell s represent WBCs and other nucleated cells in the fluid such as lining cells. Ascitic Fluid ABDOMEN / Unknown 1:51 PM EDT 10/10/2024 3:56 PM EDT us Gerri Peterson MD BODY FLUIDS AND STOOLS ORDERABL ES Final Result Performing Organization Address [facility] Co de Phone Number [facility] [address] [facility] * Body Fluid Culture plus Stain (10/10/2024 1:51 PM EDT) Gram Stain Result Cytospin Results: [facility] Gram Stain Result Polymorphonuclear Leukocytes Seen; [facility] Gram Stain Result No Organisms Seen; [facility] Culture Result No Growth After 5 Days [facility] Fluid ABDOMEN / Unknown 10/10/2024 1:51 PM EDT 10/10/2024 3:56 PM EDT Gerri Peterson MD MICROBIOLOGY - GENERAL ORDERABL ES Final Result Performing Organization Address [facility] de Phone Number [facility] [address] [facility]. [address] * UPPER GI ENDOSCOPY (10/10/2024 11:48 AM EDT) 10/10/2024 11:4 8 AM EDT Narrative [facility] - 10/10/2024 12:34 PM EDT [id number] Procedure Date: 10/10/2024 11:48 AM Patient Name: Julien Gilbert Date of : 1985 Admit Type: Inpatient Age: 39 Gender: Male Note Status: Finalized Attending MD: Lino Soto MD, [id number] Procedure: Upper GI endoscopy Indications: Gastroesopahgeal variceal [...] verified by the physician, the nurse, the watch commander and the charge preparation technician in the pre-procedure area in the [...] to hypotension Procedure Code(s): --- Professional --- 85791, GC, Esophagogastroduodenoscopy, flexible, transoral; diagnostic, including collection of specimen(s) by brushing or washing, when performed (separate procedure) Diagnosis Code(s): --- Professional --- I85.00, Esophageal varices without bleeding K76.6, Portal hypertension K31.89, Other diseases of stomach and duodenum CPT copyright 2022 [employer]. All rights reserved. The codes documented in this report are preliminary and upon site supervising technical operator review may be revised to meet current [...] In: 12:10:16 PM Scope Out: 12:17:[address] [place] [address], [id number] us Provider Not In System PROCEDURE/MINOR SURGICAL [...] MD, PhD LAB BLOOD ORDERABLES Final Result [facility] [address] [place] [address], [facility] * (ABNORMAL) Hepatic Function Panel (10/10/2024 5:23 AM EDT) Total Bilirubin 8.6(H) 0.0 - 1.5 mg/dL 10/10/2024 6:21 AM EDT [facility] Bilirubin, Direct 4.65(H) 0.00 - 0.40 mg/dL 10/10/2024 6:21 AM EDT [facility] AST 40(H) 13 - 39 U/L 10/10/2024 6:21 AM EDT [facility] ALT 22 7 - 52 U/L 10/10/2024 6:21 AM EDT [facility] Alkaline Phosphatase 118 36 - 125 U/L 10/10/2024 6:21 AM EDT [facility] Total Protein 4.6(L) 6.4 - 8.9 g/dL 10/10/2024 6:21 AM EDT [facility] Albumin 3.3(L) 3.5 - 5.7 g/dL 10/10/2024 6:21 AM EDT [facility] Bilirubin, Indirect 3.95(H) 0.00 - 1.10 mg/dL 10/10/2024 6:21 AM EDT [facility] Plasma 10/10/2024 5:23 AM EDT 10/10/2024 5:50 AM EDT us Eileen Schroeder MD, PhD LAB BLOOD ORDERABLES Final Result [facility] [address] * Magnesium (10/10/2024 5:23 AM EDT) Magnesium 1.9 1.5 - 2.5 mg/dL 10/10/2024 6:21 AM EDT [facility] Plasma 10/10/2024 5:23 AM EDT 10/10/2024 5:50 AM EDT us Eileen Schroeder MD, PhD LAB BLOOD ORDERABLES Final Result Performing Organization Address [facility] Co de Phone Number [facility] [address] * (ABNORMAL) Renal Function Panel w/EGFR (10/10/2024 5:23 AM EDT) Sodium 135 133 - 146 mmol/L 10/10/2024 6:21 AM EDT [facility] Potassium 3.6 3.5 - 5.3 mmol/L 10/10/2024 6:21 AM EDT [facility] Chloride 108 98 - 110 mmol/L 10/10/2024 6:21 AM EDT [facility] CO2 17(L) 21 - 33 mmol/L 10/10/2024 6:21 AM EDT [facility] Anion Gap 10 3 - 16 mmol/L 10/10/2024 6:21 AM EDT [facility] BUN 53(H) 7 - 25 mg/dL 10/10/2024 6:21 AM EDT [facility] Creatinine 2.85(H) 0.60 - 1.30 mg/dL 10/10/2024 6:21 AM EDT [facility] Glucose 113(H) 70 - 100 mg/dL 10/10/2024 6:21 AM EDT [facility] Calcium 9.0 8.6 - 10.3 mg/dL 10/10/2024 6:21 AM EDT [facility] Phosphorus 3.3 2.1 - 4.7 mg/dL 10/10/2024 6:21 AM EDT [facility] Albumin 3.3(L) 3.5 - 5.7 g/dL 10/10/2024 6:21 AM EDT [facility] Osmolality, Calculated 295 278 - 305 mOsm/kg 10/10/2024 6:21 AM EDT [facility] EGFR 28 10/10/2024 6:21 AM EDT [facility] Comment:As of 2021, the [...] BLOOD ORDERABLES Final Result Performing Organization Address City/State/[facility] Co de Phone Number [facility] [address] * (ABNORMAL) CBC (10/10/2024 5:23 AM EDT) WBC 5.1 3.8 - 10.8 10E3/uL 10/10/2024 6:14 AM EDT [facility] RBC 2.04(L) 4.20 - 5.80 10E6/uL 10/10/2024 6:14 AM EDT [facility] Hemoglobin 7.3(L) 13.2 - 17.1 g/dL 10/10/2024 6:14 AM EDT [facility] Hematocrit 20.6(L) 38.5 - 50.0 % 10/10/2024 6:14 AM EDT [facility] MCV 101.2(H) 80.0 - 100.0 fL 10/10/2024 6:14 AM EDT [facility] MCH 36.0(H) 27.0 - 33.0 pg 10/10/2024 6:14 AM EDT [facility] MCHC 35.5 32.0 - 36.0 g/dL 10/10/2024 6:14 AM EDT [facility] RDW 17.6(H) 11.0 - 15.0 % 10/10/2024 6:14 AM EDT [facility] Platelets 39(L) 140 - 400 10E3/uL 10/10/2024 6:14 AM EDT [facility] Comment: CNV Specimen checked for clots. None detected. MPV 9.8 7.5 - 11.5 fL 10/10/2024 6:14 AM EDT [facility] Whole Blood 10/10/2024 5:23 AM EDT 10/10/2024 5:51 AM EDT us Eileen Schroeder MD, PhD LAB BLOOD ORDERABLES Final Result Performing Organization Address City/[facility]/ZIP Co de Phone Number [facility] [address] * Vancomycin, random (10/10/2024 5:23 AM EDT) Vancomycin Random 16.4 ug/mL 10/10/2024 6:22 AM EDT [facility] Comment:Reference range not established for this test. Plasma 10/10/2024 5:23 AM EDT 10/10/2024 5:51 AM EDT us Jodi Ortiz PharmD LAB BLOOD ORDERABLES Final Result Performing Organization Address [facility]/ZIP Co de Phone Number [facility] [address] * ECHO STRESS W/ CONTRAST (10/09/2024 4:37 PM EDT) Anatomical Region Laterality Modality Chest Ultrasound 10/09/2024 2:40 PM EDT Narrative 10/09/2024 6:45 PM EDT * [facility]* [address] [place] [id number] Stress Echocardiogram Patient: Julien Gilbert Room: 8142 Height: 76in MR Number: [id number] : 1985 Weight: 262lb Account: [id number] Gender: M BP: 125 / 77 Study Date: 10/09/2024 Age: 39 BSA: 2.48m^2 Referring physician: Gerri Peterson Interpreting physician: Tonya Henriquez MD FELLOW Lisa Jha MD PERFORMING Tonya Henriquez MD CALENDER OPERATOR HELPER [employer] Gan ORDERING Gerri Peterson REFERRING [...] was augmented by the addition of hand welt rougher and leg lifts. The infusion was terminated [...] at baseline or with provocation, shows no fsilz-qg-twdo atrial level shunt. - Pulmonary arteries: Systolic [...] at baseline or with provocation, shows no mdduw-nl-yvas atrial level shunt. Pulmonary artery: - Systolic [...] at baseline or with provocation, shows no rorip-ff-pvns atrial level shunt. Pericardium: - There is [...] peak heart rate and blood pressure was 01693ip Hg/min. Stress testing did not produce any [...] Reviewed and confirmed by Tonya Henriquez MD [id number] Procedure Note Tonya Henriquez MD - 10/09/2024 * [facility]* [address] [place] [address] Stress Echocardiogram Patient: Julien Gilbert Room: 8142 Height: 76in MR Number: [id number] : 1985 Weight: 262lb Account: [id number] Gender: M BP: 125 / 77 Study Date: 10/09/2024 Age: 39 BSA: 2.48m^2 Referring physician: Gerri Peterson Interpreting physician: Tonya Henriquez MD FELLOW Lisa Jha MD PERFORMING Tonya Henriquez MD CALENDER OPERATOR HELPER [employer] Gan ORDERING Gerri Peterson REFERRING Gerri Peterson ATTENDING Fouzia Rene ADMITTING Abdulhai, [place] Procedure:STRESS ECHO - PHARMACOLOGIC Order: Indications: Pre-Operative Clearance (Z01.818). PMH: EtOH Use Disorder. Risk factors: Hypertension. Dyslipidemia. Study data: Height: 76in. 193cm. Weight: 262lb. 118.8kg. The previousstudy was not available, so comparison was made to the report of 07/15/2024. Study status: Routine. Procedure[facility]. [...] was augmented by the addition of hand welt rougher and leg lifts. The infusion was terminated [...] at baseline or with provocation, shows no gixdb-il-rbrt atrial level shunt. - Pulmonary arteries: Systolic [...] study at baseline or with provocation, showsno zuplz-aa-gpnb atrial level shunt. Pulmonary artery: - Systolic [...] at baseline or with provocation, shows no vufot-qf-qftu atrial level shunt. Pericardium: - There is [...] heart rate). The maximal predicted heart rate [id number]. The target heart rate was 152bpm. The target heart rate was achieved.The heart rate response to stress is normal. There is a normal resting blood pressure with an appropriate response to stress. The rate-pressureproduct for the peak heart rate and blood pressure was 96318tm Hg/min. Stress testing did not produce any [...] Reviewed and confirmed by Tonya Henriquez MD [id number] us Gerri Peterson MD CV ECHO ORDERABLES Final Result * (ABNORMAL) Renal Function Panel w/EGFR, STAT (10/09/2024 1:05 PM EDT) Sodium 134 133 - 146 mmol/L 10/09/2024 2:10 PM EDT [facility] Potassium 3.7 3.5 - 5.3 mmol/L 10/09/2024 2:10 PM EDT [facility] Chloride 105 98 - 110 mmol/L 10/09/2024 2:10 PM EDT [facility] CO2 17(L) 21 - 33 mmol/L 10/09/2024 2:10 PM EDT [facility] Anion Gap 12 3 - 16 mmol/L 10/09/2024 2:10 PM EDT [facility] BUN 53(H) 7 - 25 mg/dL 10/09/2024 2:10 PM EDT [facility] Creatinine 2.89(H) 0.60 - 1.30 mg/dL 10/09/2024 2:10 PM EDT [facility] Glucose 108(H) 70 - 100 mg/dL 10/09/2024 2:10 PM EDT [facility] Calcium 9.3 8.6 - 10.3 mg/dL 10/09/2024 2:10 PM EDT [facility] Phosphorus 3.4 2.1 - 4.7 mg/dL 10/09/2024 2:10 PM EDT [facility] Albumin 3.6 3.5 - 5.7 g/dL 10/09/2024 2:10 PM EDT [facility] Osmolality, Calculated 293 278 - 305 mOsm/kg 10/09/2024 2:10 PM EDT [facility] EGFR 27 10/09/2024 2:10 PM EDT [facility] Comment:As of 2021, the [...] MD, PhD LAB BLOOD ORDERABLES Final Result [facility] [address] * (ABNORMAL) Renal Function Panel w/EGFR, STAT (10/09/2024 8:14 AM EDT) Sodium 134 133 - 146 mmol/L 10/09/2024 8:47 AM EDT [facility] Potassium 3.4(L) 3.5 - 5.3 mmol/L 10/09/2024 8:47 AM EDT [facility] Chloride 107 98 - 110 mmol/L 10/09/2024 8:47 AM EDT [facility] CO2 17(L) 21 - 33 mmol/L 10/09/2024 8:47 AM EDT [facility] Anion Gap 10 3 - 16 mmol/L 10/09/2024 8:47 AM EDT [facility] BUN 54(H) 7 - 25 mg/dL 10/09/2024 8:47 AM EDT [facility] Creatinine 3.04(H) 0.60 - 1.30 mg/dL 10/09/2024 8:47 AM EDT [facility] Glucose 124(H) 70 - 100 mg/dL 10/09/2024 8:47 AM EDT [facility] Calcium 9.0 8.6 - 10.3 mg/dL 10/09/2024 8:47 AM EDT [facility] Phosphorus 3.5 2.1 - 4.7 mg/dL 10/09/2024 8:47 AM EDT [facility] Albumin 3.4(L) 3.5 - 5.7 g/dL 10/09/2024 8:47 AM EDT [facility] Osmolality, Calculated 294 278 - 305 mOsm/kg 10/09/2024 8:47 AM EDT [facility] EGFR 26 10/09/2024 8:47 AM EDT [facility] Comment:As of 2021, the [...] MD LAB BLOOD ORDERABLES Final Resu lt [facility] [address] [address], [facility] * Prepare RBC, leukoreduced, 1 Units (10/09/2024 6:16 AM EDT) Product Code M6154J67 [facility] Unit Number [id number] [facility] Dispense Status Presumed Transfused_PT [facility] Blood Expiration Date [id number] [facility] Coding System [id number] [facility] Blood Bank Product us Eileen Schroeder MD, PhD BLOOD BANK PRODUCT OR DERABLES Final Result [facility] * (ABNORMAL) Protime-INR (10/09/2024 4:59 AM EDT) Protime 26.5(H) 12.1 - 15.1 seconds 10/09/2024 6:30 AM EDT [facility] INR 2.4(H) 0.9 - 1.1 10/09/2024 6:30 AM EDT [facility] Comment: RECOMMENDED THERAPEUTIC RANGES USING INR : Stable oral anticoagulant therapy: 2.0 - 3.0 Mechanical prosthetic heart valve: 2.5 - 3.5 Recurrent acute myocardial infarction: 2.5 - 3.5 Plasma 10/09/2024 4:59 AM EDT 10/09/2024 5:55 AM EDT us Eileen Schroeder MD, PhD LAB BLOOD ORDERABLES Final Result Performing Organization Address [facility]/ZIP Co de Phone Number [facility] [address] * (ABNORMAL) Hepatic Function Panel (10/09/2024 4:59 AM EDT) Total Bilirubin 9.0(H) 0.0 - 1.5 mg/dL 10/09/2024 6:42 AM EDT [facility] Bilirubin, Direct 4.60(H) 0.00 - 0.40 mg/dL 10/09/2024 6:42 AM EDT [facility] AST 38 13 - 39 U/L 10/09/2024 6:42 AM EDT [facility] ALT 18 7 - 52 U/L 10/09/2024 6:42 AM EDT [facility] Alkaline Phosphatase 122 36 - 125 U/L 10/09/2024 6:42 AM EDT [facility] Total Protein 4.8(L) 6.4 - 8.9 g/dL 10/09/2024 6:42 AM EDT [facility] Albumin 3.4(L) 3.5 - 5.7 g/dL 10/09/2024 6:42 AM EDT [facility] Bilirubin, Indirect 4.40(H) 0.00 - 1.10 mg/dL 10/09/2024 6:42 AM EDT [facility] Plasma 10/09/2024 4:59 AM EDT 10/09/2024 5:57 AM EDT Eileen Schroeder MD, PhD LAB BLOOD ORDERABLES Final Result Performing Organization Address [facility] Co de Phone Number [facility] [address] [facility] * Magnesium (10/09/2024 4:59 AM EDT) Magnesium 1.8 1.5 - 2.5 mg/dL 10/09/2024 6:42 AM EDT [facility] Plasma 10/09/2024 4:59 AM EDT 10/09/2024 5:57 AM EDT Eileen Schroeder MD, PhD LAB BLOOD ORDERABLES Final Result Performing Organization Address [facility] de Phone Number [facility] [address] * (ABNORMAL) Renal Function Panel w/EGFR (10/09/2024 4:59 AM EDT) Sodium 134 133 - 146 mmol/L 10/09/2024 6:42 AM EDT [facility] Potassium 3.3(L) 3.5 - 5.3 mmol/L 10/09/2024 6:42 AM EDT [facility] Chloride 107 98 - 110 mmol/L 10/09/2024 6:42 AM EDT [facility] CO2 16(L) 21 - 33 mmol/L 10/09/2024 6:42 AM EDT [facility] Anion Gap 11 3 - 16 mmol/L 10/09/2024 6:42 AM EDT [facility] BUN 56(H) 7 - 25 mg/dL 10/09/2024 6:42 AM EDT [facility] Creatinine 2.98(H) 0.60 - 1.30 mg/dL 10/09/2024 6:42 AM EDT [facility] Glucose 112(H) 70 - 100 mg/dL 10/09/2024 6:42 AM EDT [facility] Calcium 9.0 8.6 - 10.3 mg/dL 10/09/2024 6:42 AM EDT [facility] Phosphorus 3.5 2.1 - 4.7 mg/dL 10/09/2024 6:42 AM EDT [facility] Albumin 3.4(L) 3.5 - 5.7 g/dL 10/09/2024 6:42 AM EDT [facility] Osmolality, Calculated 294 278 - 305 mOsm/kg 10/09/2024 6:42 AM EDT [facility] EGFR 26 10/09/2024 6:42 AM EDT [facility] Comment:As of 2021, the [...] MD, PhD LAB BLOOD ORDERABLES Final Result [facility] [address] [place] [address], [facility] * (ABNORMAL) CBC (10/09/2024 4:59 AM EDT) Pathologist [facility] WBC 4.6 3.8 - 10.8 10E3/uL 10/09/2024 6:21 AM EDT [facility] RBC 2.17(L) 4.20 - 5.80 10E6/uL 10/09/2024 6:21 AM EDT [facility] Hemoglobin 8.0(L) 13.2 - 17.1 g/dL 10/09/2024 6:21 AM EDT [facility] Hematocrit 21.8(L) 38.5 - 50.0 % 10/09/2024 6:21 AM EDT [facility] MCV 100.5(H) 80.0 - 100.0 fL 10/09/2024 6:21 AM EDT [facility] MCH 36.7(H) 27.0 - 33.0 pg 10/09/2024 6:21 AM EDT [facility] MCHC 36.5(H) 32.0 - 36.0 g/dL 10/09/2024 6:21 AM EDT [facility] RDW 18.1(H) 11.0 - 15.0 % 10/09/2024 6:21 AM EDT [facility] Platelets 36(L) 140 - 400 10E3/uL 10/09/2024 6:21 AM EDT [facility] Comment:Specimen checked for clots. None detected. MPV 8.3 7.5 - 11.5 fL 10/09/2024 6:21 AM EDT [facility] Whole Blood 10/09/2024 4:59 AM EDT 10/09/2024 5:56 AM EDT us Eileen Schroeder MD, PhD LAB BLOOD ORDERABLES Final Result [facility] [address] [place] [address], [facility] * Renal Tx Recipient (10/09/2024 4:59 AM EDT) Pathologist [facility] Renal Transplant Recipient The request and specimen(s) for this test have been received and transported to the [facility] at [address] [place] [address]. The [facility] Welcome will report results directly to the client. 10/09/2024 7:26 AM EDT [facility] Blood 10/09/2024 4:59 AM EDT 10/09/2024 7:26 AM EDT us Aaron Gonzalez MD LAB BLOOD ORDERABLES Final Resu lt [facility] [address] * Vancomycin, random (10/09/2024 4:59 AM EDT) Vancomycin Random 11.0 ug/mL 10/09/2024 6:33 AM EDT [facility] Comment:Reference range not established for this test. Plasma 10/09/2024 4:59 AM EDT 10/09/2024 5:56 AM EDT us Jodi Ortiz PharmD LAB BLOOD ORDERABLES Final Result Performing Organization Address City/[facility]/ZIP Co de Phone Number [facility] [address] [facility] * (ABNORMAL) CBC (10/08/2024 5:52 PM EDT) WBC 5.6 3.8 - 10.8 10E3/uL 10/08/2024 6:52 PM EDT [facility] RBC 2.38(L) 4.20 - 5.80 10E6/uL 10/08/2024 6:52 PM EDT [facility] Hemoglobin 8.3(L) 13.2 - 17.1 g/dL 10/08/2024 6:52 PM EDT [facility] Hematocrit 24.6(L) 38.5 - 50.0 % 10/08/2024 6:52 PM EDT [facility] MCV 103.2(H) 80.0 - 100.0 fL 10/08/2024 6:52 PM EDT [facility] MCH 34.7(H) 27.0 - 33.0 pg 10/08/2024 6:52 PM EDT [facility] MCHC 33.6 32.0 - 36.0 g/dL 10/08/2024 6:52 PM EDT [facility] RDW 18.5(H) 11.0 - 15.0 % 10/08/2024 6:52 PM EDT [facility] Platelets 39(L) 140 - 400 10E3/uL 10/08/2024 6:52 PM EDT [facility] Comment:CNV MPV 8.1 7.5 - 11.5 fL 10/08/2024 6:52 PM EDT [facility] Whole Blood 10/08/2024 5:52 PM EDT 10/08/2024 6:45 PM EDT us Eileen Schroeder MD, PhD LAB BLOOD ORDERABLES Final Result Performing Organization Address [facility] Co de Phone Number [facility] [address] * Transfuse RBC Has consent been obtained? Yes; Transfusion Rate: Per dept routine (10/08/2024 1:17 PM EDT) Eileen Schroeder MD, PhD NURSING TREATMENT ORD ERABLES - BLOOD ADMIN Final Result Performing Organization Address City/[facility] Co de Phone Number EXTERNAL * Transfuse RBC Has consent been obtained? Yes; Transfusion Rate: Per dept routine, 1 Units (10/08/2024 1:17 PM EDT) Eileen Schroeder MD, PhD NURSING TREATMENT ORD ERABLES - BLOOD ADMIN Final Result Performing Organization Address City/[facility] Co de Phone Number EXTERNAL * (ABNORMAL) MMR(IgG) Panel (Measles, Mumps, Rubella) (10/08/2024 10:25 AM EDT) Mumps IgG Positive 10/08/2024 11:39 AM EDT [facility] MUMPS IGG NUM 99.00(H) 0.0 - 8.9 U/mL 10/08/2024 11:39 AM EDT [facility] Rubella IgG Scr Positive 10/08/2024 11:40 AM EDT [facility] RUB NUM 4.15(H) 0.00 - 0.89 INDEX 10/08/2024 11:40 AM EDT [facility] Rubeola Ab, IgG Positive 10/08/2024 11:39 AM EDT [facility] RUB IGG NUM 273.00(H) 0.00 - 13.40 U/mL 10/08/2024 11:39 AM EDT [facility] Serum 10/08/2024 10:2 5 AM EDT 10/08/2024 10:49 AM EDT Narrative [facility] - 10/08/2024 11:40 AM [...] ORDERABLES Final Resu lt Performing Organization Address [facility] Co de Phone Number [facility] [address] * (ABNORMAL) Hemoglobin A1C (10/08/2024 10:25 AM EDT) Hemoglobin A1C 3.7(L) 4.0 - 5.6 % 10/09/2024 1:22 PM EDT [facility] Comment: Hemoglobin A1c Interpretation [...] lt [facility] [address] [place] [id number], [facility] * (ABNORMAL) Vitamin D 25 Hydroxy (10/08/2024 10:25 AM EDT) Vit D, 25-Hydroxy 7.1(L) 30.0 - 100.0 ng/mL 10/08/2024 11:36 AM EDT [facility] Comment: Vitamin D deficiency has been defined by the [place] of [employer] (IOM) and an Endocrine Society [...] Resu lt [facility] [address] * Iron Studies (Iron + TIBC) [...] ORDERABLES Final Resu lt Performing Organization Address [facility] Co de Phone Number [facility] [address] [place] [address]. [address] * (ABNORMAL) Ferritin (10/08/2024 10:25 AM EDT) Ferritin 706.9(H) 23.9 - 336.2 ng/mL 10/08/2024 11:35 AM EDT [facility] Serum 10/08/2024 10:2 5 AM EDT 10/08/2024 10:49 AM EDT Gerri Peterson MD LAB BLOOD ORDERABLES Final Resu lt Performing Organization Address [facility] Co de Phone Number [facility] [address] [place] [address]. [address] * QuantiFERON TB2 Ag (10/08/2024 10:25 AM EDT) QuantiFERON TB2 Ag Value 0.07 10/10/2024 10:41 AM EDT [facility] Plasma 10/08/2024 10:2 5 AM EDT 10/08/2024 11:05 AM EDT Gerri Peterson MD LAB BLOOD ORDERABLES Final Resu lt Performing Organization Address City/[facility]/ZIP Co de Phone Number [facility] [address] [place] [address]. [address] * QuantiFERON TB1 Ag (10/08/2024 10:25 AM EDT) QuantiFERON TB1 Ag Value 0.06 10/10/2024 10:41 AM EDT [facility] Plasma 10/08/2024 10:2 5 AM EDT 10/08/2024 11:05 AM EDT Gerri Peterson MD LAB BLOOD ORDERABLES Final Resu lt [facility] [address] * QuantiFERON Nil (10/08/2024 10:25 AM EDT) QuantiFERON Nil 0.06 10:41 AM EDT [facility] Plasma 10/08/2024 10:2 5 AM EDT 10/08/2024 11:05 AM EDT Gerri Peterson MD LAB BLOOD ORDERABLES Final Resu lt Performing Organization Address [facility]/ZIP Co de Phone Number [facility] [address] [facility]. [address] * QuantiFERON Mitogen (10/08/2024 10:25 AM EDT) QuantiFERON Interpretation Negative Negative 10/10/2024 10:41 AM EDT [facility] Comment:Negative result geovanny cates M. tuberculosis infection is NOT likely. Negative results do not preclude tuberculosis infection (especially in immunosuppressed patients). Negative results have a TB antigen minus Nil value less than 0.35 IU/mL. In cases with high suspicion of disease, retesting or additional testing with medical evaluation may be useful. QuantiFERON Mitogen 4.87 10/10 10:41 AM EDT [facility] Plasma 10/08/2024 10:2 5 AM EDT 10/08/2024 11:05 AM EDT Narrative [facility] - 10/10/2024 10:41 AM [...] ORDERABLES Final Resu lt Performing Organization Address [facility]/ZIP Co de Phone Number [facility] [address] [facility] * Reticulocyte Count, Auto (10/08/2024 7:41 AM EDT) Retic Ct Pct 1.35 0.50 - 2.00 % 10/08/2024 9:12 AM EDT [facility] Retic Ct Abs 26,190 25,000 - 90,000 /uL 10/08/2024 9:14 AM EDT [facility] Immature Retic Fract 0.37 0.09 - 0.56 10/08/2024 9:12 AM EDT [facility] Whole Blood 10/08/2024 7:41 AM EDT 10/08/2024 8:51 AM EDT us Angie Blanchard MD LAB BLOOD ORDERABLES Final Res ult Performing Organization Address [facility] Co de Phone Number [facility] [address] [facility] * (ABNORMAL) Haptoglobin (10/08/2024 7:41 AM EDT) Haptoglobin <30(L) 44 - 215 mg/dL 10/08/2024 8:53 AM EDT [facility] Serum 10/08/2024 7:41 AM EDT 10/08/2024 7:51 AM EDT Eileen Schroeder MD, PhD LAB BLOOD ORDERABLES Final Result Performing Organization Address [facility]/ZIP Co de Phone Number [facility] [address] [facility] * (ABNORMAL) CBC - Post Transfusion (10/08/2024 7:41 AM EDT) WBC 3.7(L) 3.8 - 10.8 10E3/uL 10/08/2024 8:34 AM EDT [facility] RBC 1.94(L) 4.20 - 5.80 10E6/uL 10/08/2024 8:34 AM EDT [facility] Hemoglobin 7.1(L) 13.2 - 17.1 g/dL 10/08/2024 8:34 AM EDT [facility] Hematocrit 20.0(L) 38.5 - 50.0 % 10/08/2024 8:34 AM EDT [facility] MCV 103.1(H) 80.0 - 100.0 fL 10/08/2024 8:34 AM EDT [facility] MCH 36.5(H) 27.0 - 33.0 pg 10/08/2024 8:34 AM EDT [facility] MCHC 35.4 32.0 - 36.0 g/dL 10/08/2024 8:34 AM EDT [facility] RDW 17.2(H) 11.0 - 15.0 % 10/08/2024 8:34 AM EDT [facility] Platelets 37(L) 140 - 400 10E3/uL 10/08/2024 8:34 AM EDT [facility] Comment: Specimen checked for clots. None detected. Slide Reviewed for PLT Clumps. None Seen. _Platelet Morphology Normal _Platelets Appear Decreased MPV 8.7 7.5 - 11.5 fL 10/08/2024 8:34 AM EDT [facility] Whole Blood 10/08/2024 7:41 AM EDT 10/08/2024 7:52 AM EDT Narrative [facility] - 10/08/2024 8:34 AM EDT Post-transfusion us Eileen Schroeder MD, PhD LAB BLOOD ORDERABLES Final Result [facility] [address] [place], [place] [id number] [place] [address] * Antibody Screen (10/08/2024 7:41 AM EDT) Antibody Screen Negative 10/08/2024 8:26 AM EDT [facility] Blood 10/08/2024 7:41 AM EDT 10/08/2024 7:57 AM EDT Narrative [facility] - 10/08/2024 8:32 AM EDT Testing performed by [facility] Transfusion Service Eileen Schroeder MD, PhD BLOOD BANK TEST ORDER PAL Final Result [facility] [address] * ABO/Rh (10/08/2024 7:41 AM EDT) ABO Grouping O 10/08/2024 8:14 AM EDT [facility] Rh Type Positive 10/08/2024 8:14 AM EDT [facility] Blood 10/08/2024 7:41 AM EDT 10/08/2024 7:57 AM EDT Eileen Schroeder MD, PhD BLOOD BANK TEST ORDER PAL Final Result Performing Organization Address [facility]/ZIP Co de Phone Number [facility] [address] * (ABNORMAL) Lactate dehydrogenase (10/08/2024 5:36 AM EDT) LD 102(L) 110 - 270 U/L 10/08/2024 8:20 AM EDT [facility] Plasma 10/08/2024 5:36 AM EDT 10/08/2024 7:58 AM EDT us Angie Blanchard MD LAB BLOOD ORDERABLES Final Res ult [facility] [address] [facility]. [address] * (ABNORMAL) Protime-INR (10/08/2024 5:36 AM EDT) Protime 26.9(H) 12.1 - 15.1 seconds 10/08/2024 6:11 AM EDT [facility] INR 2.4(H) 0.9 - 1.1 10/08/2024 6:11 AM EDT [facility] Comment: RECOMMENDED THERAPEUTIC RANGES USING INR : Stable oral anticoagulant therapy: 2.0 - 3.0 Mechanical prosthetic heart valve: 2.5 - 3.5 Recurrent acute myocardial infarction: 2.5 - 3.5 Plasma 10/08/2024 5:36 AM EDT 10/08/2024 5:52 AM EDT us Eileen Schroeder MD, PhD LAB BLOOD ORDERABLES Final Result [facility] [address] [place] [address], [facility] * (ABNORMAL) Hepatic Function Panel (10/08/2024 5:36 AM EDT) Total Bilirubin 7.7(H) 0.0 - 1.5 mg/dL 10/08/2024 6:25 AM EDT [facility] Bilirubin, Direct 4.28(H) 0.00 - 0.40 mg/dL 10/08/2024 6:25 AM EDT [facility] AST 34 13 - 39 U/L 10/08/2024 6:25 AM EDT [facility] ALT 16 7 - 52 U/L 10/08/2024 6:25 AM EDT [facility] Alkaline Phosphatase 103 36 - 125 U/L 10/08/2024 6:25 AM EDT [facility] Total Protein 4.7(L) 6.4 - 8.9 g/dL 10/08/2024 6:25 AM EDT [facility] Albumin 3.5 3.5 - 5.7 g/dL 10/08/2024 6:25 AM EDT [facility] Bilirubin, Indirect 3.42(H) 0.00 - 1.10 mg/dL 10/08/2024 6:25 AM EDT [facility] Plasma 10/08/2024 5:36 AM EDT 10/08/2024 5:52 AM EDT Eileen Schroeder MD, PhD LAB BLOOD ORDERABLES Final Result [facility] [address] [facility]. [address] * Magnesium (10/08/2024 5:36 AM EDT) Magnesium 1.9 1.5 - 2.5 mg/dL 10/08/2024 6:25 AM EDT [facility] Plasma 10/08/2024 5:36 AM EDT 10/08/2024 5:52 AM EDT Eileen Schroeder MD, PhD LAB BLOOD ORDERABLES Final Result Performing Organization Address [facility]/ZIP Co de Phone Number [facility] [address] * (ABNORMAL) Renal Function Panel w/EGFR (10/08/2024 5:36 AM EDT) Sodium 135 133 - 146 mmol/L 10/08/2024 6:25 AM EDT [facility] Potassium 3.2(L) 3.5 - 5.3 mmol/L 10/08/2024 6:25 AM EDT [facility] Chloride 106 98 - 110 mmol/L 10/08/2024 6:25 AM EDT [facility] CO2 17(L) 21 - 33 mmol/L 10/08/2024 6:25 AM EDT [facility] Anion Gap 12 3 - 16 mmol/L 10/08/2024 6:25 AM EDT [facility] BUN 61(H) 7 - 25 mg/dL 10/08/2024 6:25 AM EDT [facility] Creatinine 3.10(H) 0.60 - 1.30 mg/dL 10/08/2024 6:25 AM EDT [facility] Glucose 106(H) 70 - 100 mg/dL 10/08/2024 6:25 AM EDT [facility] Calcium 9.0 8.6 - 10.3 mg/dL 10/08/2024 6:25 AM EDT [facility] Phosphorus 4.0 2.1 - 4.7 mg/dL 10/08/2024 6:25 AM EDT [facility] Albumin 3.5 3.5 - 5.7 g/dL 10/08/2024 6:25 AM EDT [facility] Osmolality, Calculated 298 278 - 305 mOsm/kg 10/08/2024 6:25 AM EDT [facility] EGFR 25 10/08/2024 6:25 AM EDT [facility] Comment:As of 2021, the [...] MD, PhD LAB BLOOD ORDERABLES Final Result [facility] [address] * (ABNORMAL) CBC (10/08/2024 5:36 AM EDT) WBC 3.2(L) 3.8 - 10.8 10E3/uL 10/08/2024 6:41 AM EDT [facility] RBC 1.86(L) 4.20 - 5.80 10E6/uL 10/08/2024 6:41 AM EDT [facility] Hemoglobin 6.9(L) 13.2 - 17.1 g/dL 10/08/2024 6:41 AM EDT [facility] Hematocrit 18.9(L) 38.5 - 50.0 % 10/08/2024 6:41 AM EDT [facility] MCV 101.6(H) 80.0 - 100.0 fL 10/08/2024 6:41 AM EDT [facility] MCH 36.9(H) 27.0 - 33.0 pg 10/08/2024 6:41 AM EDT [facility] MCHC 36.3(H) 32.0 - 36.0 g/dL 10/08/2024 6:41 AM EDT [facility] RDW 17.0(H) 11.0 - 15.0 % 10/08/2024 6:41 AM EDT [facility] Platelets 34(L) 140 - 400 10E3/uL 10/08/2024 6:41 AM EDT [facility] Comment: Specimen checked for clots. None detected. Slide Reviewed for PLT Clumps. None Seen. Platelet Estimate Decreased 10/08/2024 6:41 AM EDT [facility] MPV 8.4 7.5 - 11.5 fL 10/08/2024 6:41 AM EDT [facility] Whole Blood 10/08/2024 5:36 AM EDT 10/08/2024 5:53 AM EDT Narrative [facility] - 10/08/2024 6:41 AM EDT Peripheral blood smear was scanned per review criteria approved by the laboratory medical record consultant. us Eileen Schroeder MD, PhD LAB BLOOD ORDERABLES Final Result [facility] [address] * Vancomycin, random (10/08/2024 5:36 AM EDT) Vancomycin Random 16.0 ug/mL 10/08/2024 6:20 AM EDT [facility] Comment:Reference range not established for this test. Plasma 10/08/2024 5:36 AM EDT 10/08/2024 5:52 AM EDT us Jodi FreireD LAB BLOOD ORDERABLES Final Result [facility] [address] * Urine Drug Confirmation (10/07/2024 10:50 PM EDT) BARBITURATES NOT PRESENT 10/09/2024 1:33 PM EDT [facility] BENZODIAZEPINES PRESENT 1:33 PM EDT [facility] Nordiazepam 3 ng/mL 10/09/2024 1:33 PM EDT [facility] Temazepam 6 ng/mL 10/09/2024 1:33 PM EDT [facility] CANNABINOIDS NOT PRESENT 10/09/2024 1:33 PM EDT [facility] STRAPPING MACHINE OPERATOR STIMULANTS NOT PRESENT 1:33 PM EDT [facility] OPIOID ANALGESICS PRESENT 025 1:33 PM EDT [facility] Oxycodone 300 ng/mL 10/09/2024 1:33 PM EDT [facility] Oxymorphone 32 ng/mL 10/09/2024 1:33 PM EDT [facility] Tramadol >1000 ng/mL 10/09/2024 1:33 PM EDT [facility] OPIOID ANTAGONISTS NOT PRESENT 10/09 1:33 PM EDT [facility] SEDATIVES/MUSCLE RELAXANTS NOT PRESENT 10/09/2024 1:33 PM EDT [facility] TRICYCLIC ANTIDEPRESSANTS NOT PRESENT 10/09/2024 1:33 PM EDT [facility] Urine 10/07/2024 10:5 0 PM EDT 10/08/2024 3:00 AM EDT Gerri Peterson MD URINE ORDERABLES Final Result [facility] [address] * Giardia Cryptosporidium Antigens (10/07/2024 10:50 PM EDT) Cryptosporidium Ag Negative Negative 2024 7:59 AM EDT [facility] Giardia Ag Negative Negative 10/08/2024 7:59 AM EDT [facility] Comment: Detection of Giardia and Cryptosporidium antigen is more sensitive and specific than microscopy. Because antigens are shed continuously, repeat testing is rarely warranted. Feces 10/07/2024 10:5 0 PM EDT 10/08/2024 1:53 AM EDT Comment:F Bisi Hernandez DO MICROBIOLOGY - GENERAL ORDERABLE S Final Result [facility] [address] [place] [address], [facility] * (ABNORMAL) Urine Drug Screen Reflex to Confirmation (10/07/2024 10:50 PM EDT) Amphetamine, 500 ng/mL Cutoff Negative Negative 10/08/2024 3:00 AM EDT [facility] Barbiturates UR, 300 ng/mL Cutoff Negative Negative 10/08/2024 3:00 AM EDT [facility] Buprenorphine, 5 ng/mL Cutoff Negative Negative 10/08/2024 3:00 AM EDT [facility] Benzodiazepines UR, 300 ng/mL Cutoff Negative Negative 10/08/2024 3:00 AM EDT [facility] Cocaine UR, 300 ng/mL Cutoff Negative Negative 10/08/2024 3:00 AM EDT [facility] Methadone, UR, 300 ng/mL Cutoff Negative Negative 10/08/2024 3:00 AM EDT [facility] Opiates UR, 300 ng/mL Cutoff Negative Negative 10/08/2024 3:00 AM EDT [facility] Oxycodone, 100 ng/mL Cutoff Presumptive Positive(A) Negative 10/08/2024 3:00 AM EDT [facility] Tricyclic Antidepressants, 300 ng/mL Cutoff Negative Negative 10/08/2024 3:00 AM EDT [facility] Comment:This test has been [...] PM EDT 10/08/2024 2:08 AM EDT Narrative [facility] - 10/08/2024 3:00 AM EDT CONFIRMATION TO FOLLOW Gerri Peterson MD URINE ORDERABLES Final Result [facility] [id number] * Comprehensive Drug Screen (10/07/2024 10:50 PM EDT) Creatinine, Ur CANCELED mg/dL 10/08/2024 7:09 AM EDT [facility] Comment:The released value 8 7.30 was canceled by YAQUELIN on 10/08/2024 07:09 BARBITURATES CANCELED [facility] Butalbital CANCELED [facility] Phenobarbital [facility] Sec[facility] BENZODIAZEPINES CANCELED [facility] Alprazolam CANCELED [facility] Clonazepam CANCELED [facility] Diazepam CANCELED [facility] Alpha-Hydroxyalprazo mcknight CANCELED [facility] Lorazepam CANCELED [facility] Midazolam CANCELED [facility] Nordiazepam CANCELED [facility] Oxazepam CANCELED [facility] Temazepam CANCELED [facility] CANNABINOIDS CANCELED [facility] THC-COOH CANCELED [facility] STRAPPING MACHINE OPERATOR STIMULANTS [facility]ELED [facility] Cocaine Metabolite(benzoylec gonine) CANCELED [facility] Amphetamine [facility]ELED [facility] Methamphetamine [facility]ELED [facility] MDA CANCELED [facility] MDEA CANCELED [facility] Phencyclindine (PCP) CANCELED [facility] OPIOID ANALGESICS CANCELED [facility] Heroin Metabolite(6-RAMONA) CANCELED [facility] Codeine CANCELED [facility] Morphine CANCELED [facility] Hydrocodone CANCELED [facility] Hydromorphone CANCELED [facility] Oxycodone CANCELED [facility] Oxymorphone CANCELED [facility] Meperidine CANCELED [facility] Normeperidine CANCELED [facility] Methadone CANCELED [facility] Methadone Metabolite (EDDP) CANCELED [facility] Tramadol CANCELED [facility] Fentanyl CANCELED [facility] Norfentanyl [facility]ED [facility] Sufentanil CANCELED [facility] OPIOID ANTAGONISTS CANCELED [facility] Buprenorphine CANCELED [facility] Norbuprenorphine CANCELED [facility] Naltrexone CANCELED [facility] Naloxone CANCELED [facility] SEDATIVES/MUSCLE RELAXANTS CANCELED [facility] Carisoprodol CANCELED [facility] Meprobamate [facility]ELED [facility] TRICYCLIC ANTIDEPRESSANTS CANCELED [facility] Amitriptyline CANCELED [facility] Clomipramine CANCELED [facility] Desipramine [facility]CELED [facility] Doxepin CANCELED [facility] Imipramine CANCELED [facility] Nortriptyline CANCELED [facility] Urine Creatinine CANCELED mg/dL [facility] Nitrite CANCELED [facility] Glutaraldehyde CANCELED [facility] pH CANCELED 10/08/2024 7:09 AM EDT [facility] Comment:The released value 5 .6 was canceled by YAQUELIN on 10/08/2024 07:09 Specific Zuni CANCELED 10/09/19 7:09 AM EDT [facility] Comment:The released value 1 .009 was canceled by YAQUELIN on 10/08/2024 07:09 Bleach CANCELED [facility] Pyridinium Chlorochromate CANCELED [facility] Urine 10/07/2024 10:5 0 PM EDT 10/08/2024 2:07 AM EDT Narrative [facility] - 10/08/2024 7:09 AM EDT See accn [id number] Gerri Peterson MD URINE ORDERABLES Edited Result - Final Performing Organization Address [facility] Co de Phone Number [facility] [address] [place] [address] * Ova and Parasite Comprehensive w/ Giardia/Crypto (10/07/2024 10:50 PM EDT) Pathologist [facility] Method: Concentration and Trichrome Stain [facility] Results No Amoeba, Ova, Or Parasites Seen. -- O and P examination of additional specimens is recommended only for symptomatic patients, immunosuppressed patients or those with an appropriate travel history. [facility] Feces FECES / Unknown 10/07/2024 1 0:50 PM EDT 10/08/2024 1:53 AM EDT Comment:F Bisi Hernandez DO MICROBIOLOGY - GENERAL ORDERABLE S Final Result Performing Organization Address [facility] de Phone Number [facility] [address] [place] [address] * Enteric Pathogen Panel (10/07/2024 10:50 PM EDT) Campylobacter Group (C. ecoli, C. jejuni, C. trino) Not Detected Not Detected 10/08/2024 4:40 AM EDT [facility] Salmonella species Not Detected Not Detected 10/08/2024 4:40 AM EDT [facility] Shigella species Not Detected Not Detected 10/08/2024 4:40 AM EDT [facility] Vibrio Group (Vibrio cholerae, Vibrio parahaemolyticus) Not Detected Not Detected 10/08/2024 4:40 AM EDT [facility] Yersinia enterocolitica Not Detected Not Detected 10/08/2024 4:40 AM EDT [facility] Shiga toxin 1 Not Detected Not Detected 10/08/2024 4:40 AM EDT [facility] LAB Shiga toxin 2 Not Detected Not Detected 10/08/2024 4:40 AM EDT [facility] Norovirus Not Detected Not Detected 10/08/2024 4:40 AM EDT [facility] Rotavirus Not Detected Not Detected 10/08/2024 4:40 AM EDT [facility] Comment: The Enteric Pathogen [...] ORDERABLE S Final Result Performing Organization Address [facility] Co de Phone Number [facility] [address] [facility] * Hepatitis C Antibody (10/07/2024 6:38 PM EDT) HCV Ab Nonreactive Nonreactive 10/07/2024 7:56 PM EDT [facility] Comment:Health Department no tified in accordance with reportable infectious disease guidelines. Serum 10/07/2024 6:38 PM EDT 10/07/2024 6:52 PM EDT Narrative [facility] - 10/07/2024 7:56 PM EDT Antibodies to HCV not detected; does not exclude the possibility of exposure to HCV. Gerri Peterson MD LAB BLOOD ORDERABLES Final Resu lt [facility] [address] * Hepatitis B Surface Antibody, Quantitati (10/07/2024 6:38 PM EDT) Hep B S Ab Nonreactive Nonreactive 10/07/2024 8:00 PM EDT [facility] HBSAB NUMBER 7.88 0.00 - 7.99 mIU/mL 10/07/2024 8:00 PM EDT [facility] Serum 10/07/2024 6:38 PM EDT 10/07/2024 6:52 PM EDT [facility] - 10/07/2024 8:00 PM EDT Individual is considered not immune to HBV infection. Gerri Peterson MD LAB BLOOD ORDERABLES Final Resu lt Performing Organization Address [facility] Co de Phone Number [facility] [address] * Hepatitis B surface antigen (10/07/2024 6:38 PM EDT) Hep B Surface Ag Nonreactive Nonreactive 10/07/2024 7:51 PM EDT [facility] Comment:Health Department no tified in accordance with reportable infectious disease guidelines. Serum 10/07/2024 6:38 PM EDT 10/07/2024 6:52 PM EDT [facility] - 10/07/2024 7:51 PM EDT Specimen is considered negative for HBsAg. Gerri Peterson MD LAB BLOOD ORDERABLES Final Resu lt Performing Organization Address [facility]/ZIP Co de Phone Number [facility] [address] * Hepatitis A Antibody Total (10/07/2024 6:38 PM EDT) Anti-HAV Total (IgG + IgM) Nonreactive 10/07/2024 7:53 PM EDT [facility] Serum 10/07/2024 6:38 PM EDT 10/07/2024 6:52 PM EDT [facility] - 10/07/2024 7:53 PM EDT HAV antibodies not detected Gerri Peterson MD LAB BLOOD ORDERABLES Final Resu lt Performing Organization Address City/[facility]/ZIP Co de Phone Number [facility] [address] * Hepatitis A IgM (10/07/2024 6:38 PM EDT) Hep A IgM Nonreactive Nonreactive 10/07/2024 7:46 PM EDT [facility] Serum 10/07/2024 6:38 PM EDT 10/07/2024 6:52 PM EDT Narrative [facility] - 10/07/2024 7:46 PM EDT IgM anti-HAV not detected. Does not exclude the possibility of exposure to or infection with HAV. Levels of IgM anti-HAV may be below the cut-off in early infection. Gerri Peterson MD LAB BLOOD ORDERABLES Final Resu lt Performing Organization Address [facility] Co de Phone Number [facility] [address] * (ABNORMAL) Lipid Profile (10/07/2024 6:37 PM EDT) Non-HDL Cholesterol, Calculated See Note 0 - 129 mg/dL 10/07/2024 7:42 PM EDT [facility] Comment: Desirable: < 130 mg/dL Above Desirable: 130-159 mg/dL Borderline High: 160-189 mg/dL High: 190-219 mg/dL Very High: > 219 mg/dL Unable to calculate result either because contributing result(s) are outside of reportable range or are not available. Cholesterol, Total <25 0 - 200 mg/dL 10/07/2024 7:42 PM EDT [facility] Triglycerides 30 10 - 149 mg/dL 10/07/2024 7:42 PM EDT [facility] HDL 4(L) 60 - 92 mg/dL 10/07/2024 7:42 PM EDT [facility] Comment: LIPID PROFILE INTERPRETATION [...] Cholesterol See Note mg/dL 7:42 PM EDT [facility] Comment:Unable to calculate result either because contributing result(s) are outside of reportable range or are not available. Plasma 10/07/2024 6:37 PM EDT 10/07/2024 7:06 PM EDT [facility] - 10/07/2024 7:42 PM EDT LDL cholesterol calculated using the Friedewald equation. us Gerri Peterson MD LAB BLOOD ORDERABLES Final Resu lt [facility] [address] [address], [facility] * (ABNORMAL) Alpha 1 Antitrypsin AAT Quant & Mutation (10/07/2024 6:37 PM EDT) A-1 Antitrypsin 99(L) 101 - 187 mg/dL 10/09/2024 4:28 AM EDT [facility] A-1 Antitrypsin Pheno Comment 10/10/2024 4:05 PM EDT [facility] Comment: A1A Phenotype is consistent with a heterozygous phenotype consisting of one M (normal) allele and one allele that cannot be identified at this time. The unknown allele is not consistent with Z (deficient), S (deficient), or F (deficient). MM Phenotype is considered to be normal , producing normal serum levels of [id number] inhibitor and not associated with clinical disease. [...] PM EDT 10/10/2024 4:08 PM EDT Narrative [facility] - 10/10/2024 4:08 PM EDT PERFORMED AT: [facility] [address] [id number] SENIOR ENERGY MARKET COORDINATOR: Bassam Khalil, PhD PHONE: [phone] PERFORMED AT: [facility] [address] [id number] SENIOR ENERGY MARKET COORDINATOR: Mandy Abdul MD PHONE: [phone] Gerri Peterson MD LAB BLOOD ORDERABLES Final Resu lt [facility] [address] * (ABNORMAL) CMV IgG Antibody (10/07/2024 6:37 PM EDT) CMV IgG Positive(A ) Negative 10/07/2024 8:26 PM EDT [facility] CMV IGG NUM 8.40(H) 0.00 - 0.59 U/mL 10/07/2024 8:26 PM EDT [facility] Serum 10/07/2024 6:37 PM EDT 10/07/2024 6:50 PM EDT Gerri Peterson MD LAB BLOOD ORDERABLES Final Resu lt [facility] [address] [facility]. [address] * HIV-1 and HIV-2 Antibodies w Reflex (10/07/2024 6:37 PM EDT) HIV 1+2 AB/AGN Nonreactive Nonreactive 10/07/2024 7:54 PM EDT [facility] Serum 10/07/2024 6:37 PM EDT 10/07/2024 7:06 PM EDT [facility] - 10/07/2024 7:54 PM EDT \HIVRNR Gerri Peterson MD LAB BLOOD ORDERABLES Final Resu lt Performing Organization Address City/[facility]/ZIP Co de Phone Number [facility] [address] [facility] * TSH (Thyroid Stimulating Hormone) (10/07/2024 6:37 PM EDT) Pathologist [facility] TSH 0.81 0.45 - 4.12 uIU/mL 10/07/2024 8:17 PM EDT [facility] Serum 10/07/2024 6:37 PM EDT 10/07/2024 6:50 PM EDT Gerri Peterson MD LAB BLOOD ORDERABLES Final Resu lt [facility] [address] [facility] [address] * Katie-Watkins virus early antigen antibody, IgG (10/07/2024 6:37 PM EDT) EBV Early Antigen Ab, IgG <9.0 0.0 - 8.9 U/mL 10/09/2024 2:16 PM EDT [facility] Comment: Negative < 9.0 Equivocal 9.0 - 10.9 Positive >10.9 Serum Frozen 10/07/2024 6:37 PM EDT 10/09/2024 3:07 PM EDT Narrative [facility] - 10/09/2024 3:07 PM EDT PERFORMED AT: [address] [id number] SENIOR ENERGY MARKET COORDINATOR: Bassam Khalil, PhD PHONE: [phone] Gerri Peterson MD LAB BLOOD ORDERABLES Final Resu lt Performing Organization Address [facility] Co de Phone Number [facility] [address] [place] [address] * (ABNORMAL) Varicella zoster antibody, IgG (10/07/2024 6:37 PM EDT) Varicella IgG Positive( A) Negative S/CO 10/07/2024 8:34 PM EDT [facility] Comment:Result indicates the presence [...] - 0.99 S/CO 10/07/2024 8:34 PM EDT [facility] Serum 10/07/2024 6:37 PM EDT 10/07/2024 6:50 PM EDT Gerri Peterson MD LAB BLOOD ORDERABLES Final Resu lt Performing Organization Address [facility] Co de Phone Number [facility] [address] [place] [address] * Toxoplasma gondii antibody, IgG (10/07/2024 6:37 PM EDT) Toxoplasma Gondii IgG <3.0 0.0 - 7.1 IU/mL 10/09/2024 7:53 AM EDT [facility] Comment: Negative <7.2 Equivocal 7.2 - 8.7 Positive >8.7 Serum 10/07/2024 6:37 PM EDT 10/09/2024 8:07 AM EDT Narrative [facility] - 10/09/2024 8:07 AM EDT PERFORMED AT: [facility] [address] [id number] SENIOR ENERGY MARKET COORDINATOR: Bassam Khalil, PhD PHONE: [phone] Gerri Peterson MD LAB BLOOD ORDERABLES Final Resu lt [facility] [address] [facility] * Syphilis Screening (Trepia) (10/07/2024 6:37 PM EDT) Treponema Pallidum Negative Negative 10/07/2024 8:27 PM EDT [facility] Comment: No serological evidence of infection with Treponema pallidum (incubating or early primary syphilis cannot be excluded). Serum 10/07/2024 6:37 PM EDT 10/07/2024 6:50 PM EDT us Gerri Peterson MD LAB BLOOD ORDERABLES Final Resu lt Performing Organization Address City/[facility]/ZIP Co de Phone Number [facility] [address] [facility] * Strongyloides Ab (10/07/2024 6:37 PM EDT) Strongyloides Ab Negative Negative 10/11/19 11:51 AM EDT [facility] Serum 10/07/2024 6:37 PM EDT 10/10/2024 12:07 PM EDT Narrative [facility] - 10/10/2024 12:07 PM EDT PERFORMED AT: [facility] [address] [id number] SENIOR ENERGY MARKET COORDINATOR: Mandy Abdul MD PHONE: [phone] Gerri Peterson MD LAB BLOOD ORDERABLES Final Resu lt [facility] [address] [facility] * Phosphatidylethanol Confirmation, B (10/07/2024 6:37 PM EDT) PETH 16:0/18.1 (POPETH) <10 Cutoff: 10 ng/mL 10/10/2024 10:42 AM EDT [facility] Comment: Phosphatidylethanol (PEth) homologues [...] Cutoff: 10 ng/mL 10/10/2024 10:42 AM EDT [facility] Comment: PEth 16:0/18:2 (PLPEth) Reference ranges are not well established PEth Interpretation Negative. 10/10 10:42 AM EDT [facility] Comment: ADDITIONAL INFORMATION This report is intended for use in clinical monitoring and management of patients. It is not intended for use in employment-related testing. This test was developed and its performance characteristics determined by [facility] in a manner consistent with CLIA requirements. This test has not been cleared or approved by the U.S. Food and Drug Administration. Test Performed by: [facility] - [address] [place] [address] Senior Programmer: Kathy Ortiz Ph.D.; CLIA# [id number] Whole Blood 10/07/2024 6:3 7 PM EDT 10/10/2024 10:42 AM EDT us Gerri Peterson MD LAB BLOOD ORDERABLES Final Resu lt [facility] [address] * (ABNORMAL) MMR(IgG) Panel (Measles, Mumps, Rubella) (10/07/2024 6:37 PM EDT) Mumps IgG Positive 10/07/2024 8:26 PM EDT [facility] MUMPS IGG NUM 77.80(H) 0.0 - 8.9 U/mL 10/07/2024 8:26 PM EDT [facility] Rubella IgG Scr Positive 10/07/2024 8:28 PM EDT [facility] RUB NUM 3.04(H) 0.00 - 0.89 INDEX 10/07/2024 8:28 PM EDT [facility] Rubeola Ab, IgG Positive 10/07/2024 8:26 PM EDT [facility] RUB IGG NUM 192.00(H) 0.00 - 13.40 U/mL 10/07/2024 8:26 PM EDT [facility] Serum 10/07/2024 6:37 PM EDT 10/07/2024 6:50 PM EDT Narrative [facility] - 10/07/2024 8:28 PM [...] MD LAB BLOOD ORDERABLES Final Resu lt [facility] [address] * IgA (10/07/2024 6:37 PM EDT) IgA 227.0 70.0 - 400.0 mg/dL 10/08/2024 11:07 AM EDT [facility] Comment:Please interpret the se findings in conjunction with clinical findings, protein electrophoresis, and immunotyping/immunofixation results. Serum 10/07/2024 6:37 PM EDT 10/07/2024 6:50 PM EDT Gerri Peterson MD LAB BLOOD ORDERABLES Final Resu lt Performing Organization Address City/[facility]/ZIP Co de Phone Number [facility] [address] * Ethanol, Serum (10/07/2024 6:37 PM EDT) Ethanol <10 0 - 10 mg/dL 10/07/2024 8:36 PM EDT [facility] Serum 10/07/2024 6:37 PM EDT 10/07/2024 6:50 PM EDT Gerri Peterson MD LAB BLOOD ORDERABLES Final Resu lt Performing Organization Address [facility] Co de Phone Number [facility] [address] * ABO/Rh - Second (10/07/2024 6:37 PM EDT) ABO Grouping O 10/07/2024 7:16 PM EDT [facility] Rh Type Positive 10/07/2024 7:16 PM EDT [facility] Blood 10/07/2024 6:37 PM EDT 10/07/2024 6:56 PM EDT Narrative [facility] - 10/07/2024 7:18 PM EDT This is not a duplicate order. It is required that ABO be drawn twice for LIVER TRANSPLANT Gerri Peterson MD BLOOD BANK TEST ORDERABLES Denisse l Result [facility] [address] * ABO/Rh- Initial (10/07/2024 6:37 PM EDT) ABO Grouping O 10/07/2024 7:59 PM EDT [facility] Rh Type Positive 10/07/2024 7:59 PM EDT [facility] Blood 10/07/2024 6:37 PM EDT 10/07/2024 7:25 PM EDT Gerri Peterson MD BLOOD BANK TEST ORDERABLES Denisse l Result [facility] [address] [place] [address], [facility] * X-ray Mandible minimum 4-views (10/07/2024 6:19 PM EDT) Anatomical Region Laterality Modality Head Radiographic Rachel ging 10/07/2024 5:49 PM EDT Impressions 10/08/2024 1:12 PM EDT IMPRESSION: 1. No acute osseous abnormality. Report Verified by: Diana Delvin MD at 10/08/2024 1:12 PM EDT Narrative [...] EXAM: US ABDOMEN COMPLETE EXAM: US DUPLEX [id number] COMPLETE INDICATION: elevated bilirubin COMPARISON: Ultrasound and [...] EXAM: US ABDOMEN COMPLETE EXAM: US DUPLEX [id number] COMPLETE INDICATION: elevated bilirubin COMPARISON: Ultrasound and [...] 4:26 PM EDT us Bisi Hernandez DO [facility] US ORDERABLES Final Result * US Duplex [id number] Comp (10/07/2024 3:48 PM EDT) Anatomical Region [...] EXAM: US ABDOMEN COMPLETE EXAM: US DUPLEX [id number] COMPLETE INDICATION: elevated bilirubin COMPARISON: Ultrasound and [...] EXAM: US ABDOMEN COMPLETE EXAM: US DUPLEX [id number] COMPLETE INDICATION: elevated bilirubin COMPARISON: Ultrasound and [...] (ABNORMAL) Protime-INR (10/07/2024 6:00 AM EDT) Pathologist [facility] Protime 26.9(H) 12.1 - 15.1 seconds 10/07/2024 [...] BLOOD ORDERABLES Final Result Performing Organization Address City/State/[facility] Co de Phone Number [facility] [address] * (ABNORMAL) Hepatic Function Panel (10/07/2024 6:00 AM EDT) Total Bilirubin 9.7(H) 0.0 - 1.5 mg/dL 10/07/2024 7:10 AM EDT [facility] Bilirubin, Direct 5.21(H) 0.00 - 0.40 mg/dL 10/07/2024 7:10 AM EDT [facility] AST 39 13 - 39 U/L 10/07/2024 7:10 AM EDT [facility] ALT 18 7 - 52 U/L 10/07/2024 7:10 AM EDT [facility] Alkaline Phosphatase 98 36 - 125 U/L 10/07/2024 7:10 AM EDT [facility] Total Protein 4.8(L) 6.4 - 8.9 g/dL 10/07/2024 7:10 AM EDT [facility] Albumin 3.6 3.5 - 5.7 g/dL 10/07/2024 7:10 AM EDT [facility] Bilirubin, Indirect 4.49(H) 0.00 - 1.10 mg/dL 10/07/2024 7:10 AM EDT [facility] Plasma 10/07/2024 6:00 AM EDT 10/07/2024 6:39 AM EDT Eileen Schroeder MD, PhD LAB BLOOD ORDERABLES Final Result Performing Organization Address City/[facility]/ZIP Co de Phone Number [facility] [address] * Magnesium (10/07/2024 6:00 AM EDT) Magnesium 1.7 1.5 - 2.5 mg/dL 10/07/2024 7:10 AM EDT [facility] Plasma 10/07/2024 6:00 AM EDT 10/07/2024 6:39 AM EDT Eileen Schroeder MD, PhD LAB BLOOD ORDERABLES Final Result Performing Organization Address [facility] de Phone Number [facility] [address] * (ABNORMAL) Renal Function Panel w/EGFR (10/07/2024 6:00 AM EDT) Sodium 132(L) 133 - 146 mmol/L 10/07/2024 7:10 AM EDT [facility] Potassium 3.9 3.5 - 5.3 mmol/L 10/07/2024 7:10 AM EDT [facility] Chloride 103 98 - 110 mmol/L 10/07/2024 7:10 AM EDT [facility] CO2 19(L) 21 - 33 mmol/L 10/07/2024 7:10 AM EDT [facility] Anion Gap 10 3 - 16 mmol/L 10/07/2024 7:10 AM EDT [facility] BUN 64(H) 7 - 25 mg/dL 10/07/2024 7:10 AM EDT [facility] Creatinine 3.38(H) 0.60 - 1.30 mg/dL 10/07/2024 7:10 AM EDT [facility] Glucose 111(H) 70 - 100 mg/dL 10/07/2024 7:10 AM EDT [facility] Calcium 9.1 8.6 - 10.3 mg/dL 10/07/2024 7:10 AM EDT [facility] Phosphorus 4.2 2.1 - 4.7 mg/dL 10/07/2024 7:10 AM EDT [facility] Albumin 3.6 3.5 - 5.7 g/dL 10/07/2024 7:10 AM EDT [facility] Osmolality, Calculated 293 278 - 305 mOsm/kg 10/07/2024 7:10 AM EDT [facility] EGFR 22 10/07/2024 7:10 AM EDT [facility] Comment:As of 2021, the [...] MD, PhD LAB BLOOD ORDERABLES Final Result [facility] [address] [place] [address], [facility] * (ABNORMAL) CBC (10/07/2024 6:00 AM EDT) WBC 3.3(L) 3.8 - 10.8 10E3/uL 10/07/2024 7:55 AM EDT [facility] RBC 2.06(L) 4.20 - 5.80 10E6/uL 10/07/2024 7:55 AM EDT [facility] Hemoglobin 7.4(L) 13.2 - 17.1 g/dL 10/07/2024 7:55 AM EDT [facility] Hematocrit 21.5(L) 38.5 - 50.0 % 10/07/2024 7:55 AM EDT [facility] MCV 104.1(H) 80.0 - 100.0 fL 10/07/2024 7:55 AM EDT [facility] MCH 35.8(H) 27.0 - 33.0 pg 10/07/2024 7:55 AM EDT [facility] MCHC 34.4 32.0 - 36.0 g/dL 10/07/2024 7:55 AM EDT [facility] RDW 17.5(H) 11.0 - 15.0 % 10/07/2024 7:55 AM EDT [facility] Platelets 35(L) 140 - 400 10E3/uL 10/07/2024 7:55 AM EDT [facility] Comment: Specimen checked for clots. None detected. Slide Reviewed for PLT Clumps. None Seen. _Platelet Morphology Normal _Platelets Appear Decreased Platelet Estimate Decreased 10/07/2024 7:55 AM EDT [facility] MPV 8.0 7.5 - 11.5 fL 10/07/2024 7:55 AM EDT [facility] Whole Blood 10/07/2024 6:00 AM EDT 10/07/2024 6:40 AM EDT Narrative [facility] - 10/07/2024 7:55 AM EDT Peripheral blood smear was scanned per review criteria approved by the laboratory medical record consultant. us Eileen Schroeder MD, PhD LAB BLOOD ORDERABLES Final Result [facility] [address] [place] [address], [facility] * AFP Tumor Marker (10/07/2024 6:00 AM EDT) AFP-Tumor Marker 2.0 0.0 - 9.0 ng/mL 10/07/2024 7:11 AM EDT [facility] Serum 10/07/2024 6:00 AM EDT 10/07/2024 6:39 AM EDT Narrative [facility] - 10/07/2024 7:11 AM EDT The testing method for AFP is a chemiluminescent immunoassay manufactured by [employer] Concentrations of AFP obtained by different assay methods or kits may vary and cannot be used interchangeably. AFP results cannot be interpreted as absolute evidence of the presence or absence of malignant disease. Shila Rivera MD LAB BLOOD ORDERABLES Final Resul t Performing Organization Address City/[facility]/ZIP Co de Phone Number [facility] [address] * Vancomycin, random (10/07/2024 6:00 AM EDT) Vancomycin Random 21.1 ug/mL 10/07/2024 7:08 AM EDT [facility] Comment:Reference range not established for this test. Plasma 10/07/2024 6:00 AM EDT 10/07/2024 6:39 AM EDT Kiet Gardiner PharmD LAB BLOOD ORDERABLES Final Re sult Performing Organization Address [facility]/ZIP Co de Phone Number [facility] [address] [facility] * Osmolality (10/06/2024 2:50 PM EDT) Osmolality, Measured 304 278 - 305 mOsm/kg 10/06/2024 3:49 PM EDT [facility] Serum 10/06/2024 2:50 PM EDT 10/06/2024 2:56 PM EDT Chari Vanegas MD LAB BLOOD ORDERABLES Final Resul t Performing Organization Address [facility] Co de Phone Number [facility] [address] Health. [address] * CT Head WO contrast (10/06/2024 [...] Ur <15 mmol/L 10/06/2024 1:56 PM EDT [facility] Comment:Reference range not established for this test. Urine 10/06/2024 1:25 PM EDT 10/06/2024 1:32 PM EDT us Chari Vanegas MD URINE ORDERABLES Final Result [facility] [address] * Potassium, urine, random (10/06/2024 1:25 PM EDT) Potassium Urine Random 50.0 mmol/L 10/06/2024 1:56 PM EDT [facility] Comment:Reference range not established for this test. Urine 10/06/2024 1:25 PM EDT 10/06/2024 1:32 PM EDT Chari Vanegas MD URINE ORDERABLES Final Result Performing Organization Address [facility] Co de Phone Number [facility] [address] * Sodium, urine, random (10/06/2024 1:25 PM EDT) Sodium, Ur <10 mmol/L 10/06/2024 1:56 PM EDT [facility] Comment:Reference range not established for this test. Urine 10/06/2024 1:25 PM EDT 10/06/2024 1:32 PM EDT us Chari Vanegas MD URINE ORDERABLES Final Result Performing Organization Address City/[facility] Co de Phone Number [facility] [address] * Creatinine, Urine, Random (10/06/2024 1:25 PM EDT) Creatinine, Urine 87.40 mg/dL 10/06/2024 1:56 PM EDT [facility] Comment:Reference range not established for this test. Urine 10/06/2024 1:25 PM EDT 10/06/2024 1:32 PM EDT us Chari Vanegas MD URINE ORDERABLES Final Result Performing Organization Address City/[facility]/ZIP Co de Phone Number [facility] [address] [facility] * Osmolality, Urine (10/06/2024 1:25 PM EDT) Osmolality, Ur 386 50 - 1,200 mOsm/kg 10/06/2024 1:55 PM EDT [facility] Urine 10/06/2024 1:25 PM EDT 10/06/2024 1:32 PM EDT us Chari Vanegas MD URINE ORDERABLES Final Result Performing Organization Address [facility] Co de Phone Number [facility] [address] [facility] * Urine Drug Confirmation (10/06/2024 11:51 AM EDT) BARBITURATES NOT PRESENT 10/09/2024 3:23 PM EDT [facility] Comment:Results were recheck ed. BENZODIAZEPINES PRESENT 3:23 PM EDT [facility] Nordiazepam 3 ng/mL 10/09/2024 3:23 PM EDT [facility] Comment:Results were recheck ed. Temazepam 8 ng/mL 10/09/2024 3:23 PM EDT [facility] Comment:Results were recheck ed. CANNABINOIDS NOT PRESENT 10/09/2024 3:23 PM EDT [facility] STRAPPING MACHINE OPERATOR STIMULANTS NOT PRESENT 3:23 PM EDT [facility] OPIOID ANALGESICS PRESENT 025 3:23 PM EDT [facility] Oxycodone 329 ng/mL 10/09/2024 3:23 PM EDT [facility] Oxymorphone 61 ng/mL 10/09/2024 3:23 PM EDT [facility] Tramadol >1000 ng/mL 10/09/2024 3:23 PM EDT [facility] OPIOID ANTAGONISTS NOT PRESENT 10/09 3:23 PM EDT [facility] SEDATIVES/MUSCLE RELAXANTS NOT PRESENT 10/09/2024 3:23 PM EDT [facility] TRICYCLIC ANTIDEPRESSANTS NOT PRESENT 10/09/2024 3:23 PM EDT [facility] Urine 10/06/2024 11:5 1 AM EDT 10/06/2024 1:13 PM EDT us Bisi Hernandez DO URINE ORDERABLES Final Result [facility] [address] [facility] [place] [address], [facility] * (ABNORMAL) Urine Drug Screen Reflex to Confirmation (10/06/2024 11:51 AM EDT) Amphetamine, 500 ng/mL Cutoff Negative Negative 10/06/2024 1:13 PM EDT [facility] Barbiturates UR, 300 ng/mL Cutoff Negative Negative 10/06/2024 1:13 PM EDT [facility] Buprenorphine, 5 ng/mL Cutoff Negative Negative 10/06/2024 1:13 PM EDT [facility] Benzodiazepines UR, 300 ng/mL Cutoff Negative Negative 10/06/2024 1:13 PM EDT [facility] Cocaine UR, 300 ng/mL Cutoff Negative Negative 10/06/2024 1:13 PM EDT [facility] Methadone, UR, 300 ng/mL Cutoff Negative Negative 10/06/2024 1:13 PM EDT [facility] Opiates UR, 300 ng/mL Cutoff Negative Negative 10/06/2024 1:13 PM EDT [facility] Oxycodone, 100 ng/mL Cutoff Presumptive Positive(A) Negative 10/06/2024 1:13 PM EDT [facility] Tricyclic Antidepressants, 300 ng/mL Cutoff Negative Negative 10/06/2024 1:13 PM EDT [facility] Comment:This test has been [...] Cutoff Negative Negative 10/06/2024 1:13 PM EDT [facility] Comment:This is a screening method only and may be associated with false positive and/or false negative results. Results are not definitive without additional confirmatory testing by mass spectrometry. Fentanyl, 2 ng/mL Cutoff Negative Negative 10/06/2024 1:13 PM EDT [facility] Comment:This test has been [...] AM EDT 10/06/2024 11:58 AM EDT Narrative [facility] - 10/06/2024 1:13 PM EDT CONFIRMATION TO FOLLOW Bisi Akella DO URINE ORDERABLES Final Result Performing Organization Address City/[facility]/ZIP Co de Phone Number [facility] [address] [place] [address] * Chloride, urine, random (10/06/2024 11:51 AM EDT) Chloride, Ur <15 mmol/L 10/06/2024 1:13 PM EDT [facility] Comment:Reference range not established for this test. Urine 10/06/2024 11:5 1 AM EDT 10/06/2024 11:57 AM EDT Ocho Globalella DO URINE ORDERABLES Final Result [facility] [address] * Potassium, urine, random (10/06/2024 11:51 AM EDT) Potassium Urine Random 49.0 mmol/L 10/06/2024 1:13 PM EDT [facility] Comment:Reference range not established for this test. Urine 10/06/2024 11:5 1 AM EDT 10/06/2024 11:57 AM EDT Ocho Globalana maría URINE ORDERABLES Final Result Performing Organization Address City/[facility]/ZIP Co de Phone Number [facility] [address] [facility] * Sodium, urine, random (10/06/2024 11:51 AM EDT) Sodium, Ur <10 mmol/L 10/06/2024 1:13 PM EDT [facility] Comment:Reference range not established for this test. Urine 10/06/2024 11:5 1 AM EDT 10/06/2024 11:57 AM EDT Ocho Globalana maría URINE ORDERABLES Final Result Performing Organization Address City/[facility]/ZIP Co de Phone Number [facility] [address] [facility] * Urinalysis w/Rfl to Microscopic (10/06/2024 11:51 AM EDT) Color, UA Yellow Yellow,Straw 10/06/2024 12:25 PM EDT [facility] Clarity, UA Clear Clear 10/06/2024 12:25 PM EDT [facility] Specific [place], UA 1.014 1.005 - 1.035 10/06/2024 12:25 PM EDT [facility] pH, UA 6.0 5.0 - 8.0 10/06/2024 12:25 PM EDT [facility] Protein, UA Negative Negative mg/dL 10/06/2024 12:25 PM EDT [facility] Glucose, UA Negative Negative mg/dL 10/06/2024 12:25 PM EDT [facility] Ketones, UA Negative Negative mg/dL 10/06/2024 12:25 PM EDT [facility] Bilirubin, UA Negative Negative 10/06/2024 12:25 PM EDT [facility] Blood, UA Negative Negative 10/06/2024 12:25 PM EDT [facility] Nitrite, UA Negative Negative 10/06/2024 12:25 PM EDT [facility] Urobilinogen, UA <2.0 0.2 - 1.9 mg/dL 10/06/2024 12:25 PM EDT [facility] Leukocyte Esterase, UA Negative Negative 10/06/2024 12:25 PM EDT [facility] Urine 10/06/2024 11:5 1 AM EDT 10/06/2024 11:57 AM EDT Narrative [facility] - 10/06/2024 12:25 PM EDT Microscopic testing is not performed when the dipstick is negative for blood, leukocyte, protein and nitrite. us Bisi Hernandez DO URINE ORDERABLES Final Result [facility] [address] * Lactic Acid, STAT (10/06/2024 7:38 AM EDT) Lactate 0.9 0.5 - 2.2 mmol/L 10/06/2024 8:05 AM EDT [facility] Plasma 10/06/2024 7:38 AM EDT 10/06/2024 7:42 AM EDT us Chari Vanegas MD LAB BLOOD ORDERABLES Final Resul t [facility] [address] * (ABNORMAL) CBC, STAT (10/06/2024 7:37 AM EDT) WBC 5.6 3.8 - 10.8 10E3/uL 10/06/2024 8:22 AM EDT [facility] RBC 2.50(L) 4.20 - 5.80 10E6/uL 10/06/2024 8:22 AM EDT [facility] Hemoglobin 9.0(L) 13.2 - 17.1 g/dL 10/06/2024 8:22 AM EDT [facility] Hematocrit 25.3(L) 38.5 - 50.0 % 10/06/2024 8:22 AM EDT [facility] MCV 101.2(H) 80.0 - 100.0 fL 10/06/2024 8:22 AM EDT [facility] MCH 36.0(H) 27.0 - 33.0 pg 10/06/2024 8:22 AM EDT [facility] MCHC 35.6 32.0 - 36.0 g/dL 10/06/2024 8:22 AM EDT [facility] RDW 17.7(H) 11.0 - 15.0 % 10/06/2024 8:22 AM EDT [facility] Platelets 52(L) 140 - 400 10E3/uL 10/06/2024 8:22 AM EDT [facility] Comment: Specimen checked for clots. None detected. Slide Reviewed for PLT Clumps. None Seen. MPV 8.2 7.5 - 11.5 fL 10/06/2024 8:22 AM EDT [facility] Whole Blood 10/06/2024 7:37 AM EDT 10/06/2024 7:43 AM EDT us Chari Vanegas MD LAB BLOOD ORDERABLES Final Resul t [facility] [address] [place] [id number] * (ABNORMAL) Comprehensive Metabolic Panel (10/06/2024 7:37 AM EDT) Sodium 129(L) 133 - 146 mmol/L 10/06/2024 8:16 AM EDT [facility] Potassium 4.4 3.5 - 5.3 mmol/L 10/06/2024 8:16 AM EDT [facility] Chloride 100 98 - 110 mmol/L 10/06/2024 8:16 AM EDT [facility] CO2 18(L) 21 - 33 mmol/L 10/06/2024 8:[facility] Anion Gap 11 3 - 16 mmol/L 10/06/2024 8:16 AM [facility] BUN 62(H) 7 - 25 mg/dL 10/06/2024 8:16 AM [facility] Creatinine 3.40(H) 0.60 - 1.30 mg/dL 10/06/2024 8:16 AM EDT [facility] Glucose 98 70 - 100 mg/dL 10/06/2024 8:16 AM EDT [facility] Calcium 9.5 8.6 - 10.3 mg/dL 10/06/2024 8:16 AM EDT [facility] Total Bilirubin 14.3(H) 0.0 - 1.5 mg/dL 10/06/2024 8:16 AM [facility] AST 57(H) 13 - 39 U/L 10/06/2024 8:16 AM EDT [facility] ALT 29 7 - 52 U/L 10/06/2024 8:16 AM [facility] Alkaline Phosphatase 158(H) 36 - 125 U/L 10/06/2024 8:16 AM [facility] Total Protein 5.6(L) 6.4 - 8.9 g/dL 10/06/2024 8:16 AM [facility] Albumin 3.6 3.5 - 5.7 g/dL 10/06/2024 8:16 AM T [facility] Osmolality, Calculated 286 278 - 305 mOsm/kg 10/06/2024 8:16 AM [facility] EGFR 22 10/06/2024 8:16 AM [facility] Comment:As of [...] MD LAB BLOOD ORDERABLES Final Resul t [facility] [address] [place] [address], [facility] * (ABNORMAL) Venous Blood Gas, Line/Syringe, STAT (10/06/2024 7:37 AM EDT) PH-Line Draw 7.27(L) 7.32 - 7.42 10/06/2024 7:46 AM EDT [facility] PCO2-Line Draw 36(L) 41 - 51 mm Hg 10/06/2024 7:46 AM EDT [facility] PO2-Line Draw 44(H) 25 - 40 mm Hg 10/06/2024 7:46 AM EDT [facility] HCO3-Line Draw 17(L) 24 - 28 mmol/L 10/06/2024 7:46 AM EDT [facility] CO2 Content-Line Draw 18(L) 25 - 29 mmol/L 10/06/2024 7:46 AM EDT [facility] Base Excess-Line Draw -9.6(L) -2.0 - 3.0 mmol/L 10/06/2024 7:46 AM EDT [facility] %HBO2-Line Draw 69.8 40.0 - 70.0 % 10/06/2024 7:46 AM EDT [facility] Carboxyhgb-Ludivina e Draw 0.7 % 10/06/2024 7:46 AM EDT [facility] Comment: CARBOXYHEMOGLOBIN (CO) REFERENCE RANGES: Non-Smokers: <2 % Smokers: <8 % TOXIC: >20 % Methemoglobin- Line Draw 0.3 0.0 - 1.5 % 10/06/2024 7:46 AM EDT [facility] Reduced Hemoglobin-Ludivina e Draw 29.2(H) 0.0 - 5.0 % 10/06/2024 7:46 AM EDT [facility] Venous, Line Draw 10/06/2024 7:37 AM EDT 10/06/2024 7:43 AM EDT Chari Vanegas MD LAB BLOOD ORDERABLES Final Resul t [facility] [address] [place] [address], [facility] * (ABNORMAL) Venous Blood Gas, Line/Syringe, STAT (10/06/2024 4:03 AM EDT) PH-Line Draw 7.21(L) 7.32 - 7.42 10/06/2024 4:16 AM EDT [facility] PCO2-Line Draw 41 41 - 51 mm Hg 10/06/2024 4:16 AM EDT [facility] PO2-Line Draw 32 25 - 40 mm Hg 10/06/2024 4:16 AM EDT [facility] HCO3-Line Draw 16(L) 24 - 28 mmol/L 10/06/2024 4:16 AM EDT [facility] CO2 Content-Line Draw 18(L) 25 - 29 mmol/L 10/06/2024 4:16 AM EDT [facility] Base Excess-Line Draw -10.8(L) -2.0 - 3.0 mmol/L 10/06/2024 4:16 AM EDT [facility] %HBO2-Line Draw 47.5 40.0 - 70.0 % 10/06/2024 4:16 AM EDT [facility] Carboxyhgb-Ludivina e Draw 2.0 % 10/06/2024 4:16 AM EDT [facility] Comment: CARBOXYHEMOGLOBIN (CO) REFERENCE RANGES: Non-Smokers: <2 % Smokers: <8 % TOXIC: >20 % Methemoglobin- Line Draw 0.7 0.0 - 1.5 % 10/06/2024 4:16 AM EDT [facility] Reduced Hemoglobin-Ludivina e Draw 49.8(H) 0.0 - 5.0 % 10/06/2024 4:16 AM EDT [facility] Venous, Line Draw 10/06/2024 4:03 AM EDT 10/06/2024 4:12 AM EDT [facility] ([facility]) LAB BLOOD ORDERABLES Final Resul t Performing Organization Address [facility] de Phone Number [facility] [address] * (ABNORMAL) Protime-INR (10/06/2024 4:01 AM EDT) Protime 21.3(H) 12.1 - 15.1 seconds 10/06/2024 4:40 AM EDT [facility] INR 1.8(H) 0.9 - 1.1 10/06/2024 4:40 AM EDT [facility] Comment: RECOMMENDED THERAPEUTIC RANGES USING INR : Stable oral anticoagulant therapy: 2.0 - 3.0 Mechanical prosthetic heart valve: 2.5 - 3.5 Recurrent acute myocardial infarction: 2.5 - 3.5 Plasma 10/06/2024 4:01 AM EDT 10/06/2024 4:11 AM EDT [facility] LAB BLOOD ORDERABLES Final Resul t Performing Organization Address [facility] de Phone Number [facility] [address] [facility] * (ABNORMAL) Hepatic Function Panel, AM (10/06/2024 4:01 AM EDT) Total Bilirubin 14.7(H) 0.0 - 1.5 mg/dL 10/06/2024 4:57 AM EDT [facility] Bilirubin, Direct 7.08(H) 0.00 - 0.40 mg/dL 10/06/2024 4:57 AM EDT [facility] AST 60(H) 13 - 39 U/L 10/06/2024 4:57 AM EDT [facility] ALT 31 7 - 52 U/L 10/06/2024 4:57 AM EDT [facility] Alkaline Phosphatase 162(H) 36 - 125 U/L 10/06/2024 4:57 AM EDT [facility] Total Protein 5.3(L) 6.4 - 8.9 g/dL 10/06/2024 4:57 AM EDT [facility] Albumin 3.4(L) 3.5 - 5.7 g/dL 10/06/2024 4:57 AM EDT [facility] Bilirubin, Indirect 7.62(H) 0.00 - 1.10 mg/dL 10/06/2024 4:57 AM EDT [facility] Plasma 10/06/2024 4:01 AM EDT 10/06/2024 4:22 AM EDT [facility] LAB BLOOD ORDERABLES Final Resul t [facility] [address] [facility] * Magnesium (10/06/2024 4:01 AM EDT) Magnesium 1.8 1.5 - 2.5 mg/dL 10/06/2024 4:57 AM EDT [facility] Plasma 10/06/2024 4:01 AM EDT 10/06/2024 4:22 AM EDT [facility] LAB BLOOD ORDERABLES Final Resul t Performing Organization Address City/[facility]/ZIP Co de Phone Number [facility] [address] [facility] * (ABNORMAL) Renal Function Panel w/EGFR (10/06/2024 4:01 AM EDT) Sodium 129(L) 133 - 146 mmol/L 10/06/2024 4:57 AM EDT [facility] Potassium 4.7 3.5 - 5.3 mmol/L 10/06/2024 4:57 AM EDT [facility] Chloride 100 98 - 110 mmol/L 10/06/2024 4:57 AM EDT [facility] CO2 16(L) 21 - 33 mmol/L 10/06/2024 4:57 AM EDT [facility] Anion Gap 13 3 - 16 mmol/L 10/06/2024 4:57 AM EDT [facility] BUN 61(H) 7 - 25 mg/dL 10/06/2024 4:57 AM EDT [facility] Creatinine 3.49(H) 0.60 - 1.30 mg/dL 10/06/2024 4:57 AM EDT [facility] Glucose 104(H) 70 - 100 mg/dL 10/06/2024 4:57 AM EDT [facility] Calcium 9.2 8.6 - 10.3 mg/dL 10/06/2024 4:57 AM EDT [facility] Phosphorus 5.3(H) 2.1 - 4.7 mg/dL 10/06/2024 4:57 AM EDT [facility] Albumin 3.4(L) 3.5 - 5.7 g/dL 10/06/2024 4:57 AM EDT [facility] Osmolality, Calculated 286 278 - 305 mOsm/kg 10/06/2024 4:57 AM EDT [facility] EGFR 22 10/06/2024 4:57 AM EDT [facility] Comment:As of 2021, the [...] DO LAB BLOOD ORDERABLES Final Resul t [facility] [address] * (ABNORMAL) CBC (10/06/2024 4:01 AM EDT) WBC 7.6 3.8 - 10.8 10E3/uL 10/06/2024 5:16 AM EDT [facility] RBC 2.77(L) 4.20 - 5.80 10E6/uL 10/06/2024 5:16 AM EDT [facility] Hemoglobin 10.1(L) 13.2 - 17.1 g/dL 10/06/2024 5:16 AM EDT [facility] Hematocrit 28.4(L) 38.5 - 50.0 % 10/06/2024 5:16 AM EDT [facility] MCV 102.4(H) 80.0 - 100.0 fL 10/06/2024 5:16 AM EDT [facility] MCH 36.4(H) 27.0 - 33.0 pg 10/06/2024 5:16 AM EDT [facility] MCHC 35.5 32.0 - 36.0 g/dL 10/06/2024 5:16 AM EDT [facility] RDW 18.0(H) 11.0 - 15.0 % 10/06/2024 5:16 AM EDT [facility] Platelets 53(L) 140 - 400 10E3/uL 10/06/2024 5:16 AM EDT [facility] Comment:Specimen checked for clots. None detected. MPV 8.4 7.5 - 11.5 fL 10/06/2024 5:16 AM EDT [facility] Whole Blood 10/06/2024 4:01 AM EDT 10/06/2024 4:11 AM EDT us Bisi Hernandez DO LAB BLOOD ORDERABLES Final Resul t [facility] [address] * Hepatitis C Antibody (10/06/2024 4:01 AM EDT) HCV Ab Nonreactive Nonreactive 10/06/2024 5:12 AM EDT [facility] Comment:Health Department no tified in accordance with reportable infectious disease guidelines. Serum 10/06/2024 4:01 AM EDT 10/06/2024 4:11 AM EDT [facility] - 10/06/2024 5:12 AM EDT Antibodies to HCV not detected; does not exclude the possibility of exposure to HCV. [facility] ([facility]) LAB BLOOD ORDERABLES Final Resul t Performing Organization Address [facility] Co de Phone Number [facility] [address] [place] [address]. [address] * (ABNORMAL) Hepatitis B Surface Antibody, Quantitati (10/06/2024 4:01 AM EDT) Hep B S Ab Reactive( A) Nonreactive 10/06/2024 5:16 AM EDT [facility] HBSAB NUMBER 11.50(H) 0.00 - 7.99 mIU/mL 10/06/2024 5:16 AM EDT [facility] Serum 10/06/2024 4:01 AM EDT 10/06/2024 4:11 AM EDT [facility] - 10/06/2024 5:16 AM EDT Individual is considered immune to HBV infection. [facility] ([facility]) LAB BLOOD ORDERABLES Final Resul t Performing Organization Address [facility] Co de Phone Number [facility] [address] [place] [address]. [address] * Hepatitis B surface antigen (10/06/2024 4:01 AM EDT) Hep B Surface Ag Nonreactive Nonreactive 10/06/2024 5:07 AM EDT [facility] Comment:Health Department no tified in accordance with reportable infectious disease guidelines. Serum 10/06/2024 4:01 AM EDT 10/06/2024 4:11 AM EDT [facility] - 10/06/2024 5:07 AM EDT Specimen is considered negative for HBsAg. [facility] ([facility]) LAB BLOOD ORDERABLES Final Resul t Performing Organization Address City/[facility]/ZIP Co de Phone Number [facility] [address] * Hepatitis A Antibody Total (10/06/2024 4:01 AM EDT) Anti-HAV Total (IgG + IgM) Nonreactive 10/06/2024 5:08 AM EDT [facility] Serum 10/06/2024 4:01 AM EDT 10/06/2024 4:11 AM EDT [facility] - 10/06/2024 5:08 AM EDT HAV antibodies not detected [facility] ([facility]) LAB BLOOD ORDERABLES Final Resul t Performing Organization Address [facility] Co de Phone Number [facility] [address] [facility] * Hepatitis A IgM (10/06/2024 4:01 AM EDT) Hep A IgM Nonreactive Nonreactive 10/06/2024 5:02 AM EDT [facility] Serum 10/06/2024 4:01 AM EDT 10/06/2024 4:11 AM EDT [facility] - 10/06/2024 5:02 AM EDT IgM anti-HAV not detected. Does not exclude the possibility of exposure to or infection with HAV. Levels of IgM anti-HAV may be below the cut-off in early infection. [facility] ([facility]) LAB BLOOD ORDERABLES Final Resul t Performing Organization Address City/[facility]/ZIP Co de Phone Number [facility] [address] [facility] * (ABNORMAL) Salicylate Level (10/06/2024 4:01 AM EDT) Salicylate Lvl <3(L) 10 - 30 mg/dL 10/06/2024 4:58 AM EDT [facility] Serum 10/06/2024 4:01 AM EDT 10/06/2024 4:22 AM EDT [facility]) LAB BLOOD ORDERABLES Final Resul t Performing Organization Address [facility] de Phone Number [facility] [address] [facility]. [address] * AFP Tumor Marker (10/06/2024 4:01 AM EDT) [facility] AFP-Tumor Marker 2.6 0.0 - 9.0 ng/mL 10/06/2024 4:55 AM EDT [facility] Serum 10/06/2024 4:01 AM EDT 10/06/2024 4:22 AM EDT Narrative [facility] - 10/06/2024 4:55 AM EDT The testing method for AFP is a chemiluminescent immunoassay manufactured by [employer] Concentrations of AFP obtained by different assay methods or kits may vary and cannot be used interchangeably. AFP results cannot be interpreted as absolute evidence of the presence or absence of malignant disease. [facility] ([facility]) LAB BLOOD ORDERABLES Final Resul t Performing Organization Address [facility] de Phone Number [facility] [address] [facility]. [address] * Upper Respiratory Viral/Bacterial Panel-COPING MACHINE OPERATOR Only (10/06/2024 3:12 AM EDT) [facility] Adenovirus Not Detected Not Detected 10/06/2024 11:38 PM EDT [facility] Coronavirus (229E,HKU1,NL63,OC 43) Not Detected Not Detected 10/06/2024 11:38 PM EDT [facility] SARS-CoV-2 Not Detected Not Detected 10/06/2024 11:38 PM EDT [facility] Human Metapneumovirus Not Detected Not Detected 10/06/2024 11:38 PM EDT [facility] Human Rhinovirus/Enterov irus Not Detected Not Detected 10/06/2024 11:38 PM EDT [facility] Influenza A Not Detected Not Detected 10/06/2024 11:38 PM EDT [facility] Influenza A H1 Not Detected Not Detected 10/06/2024 11:38 PM EDT [facility] Influenza A/H1-2009 Not Detected Not Detected 10/06/2024 11:38 PM EDT [facility] Influenza A H3 Not Detected Not Detected 10/06/2024 11:38 PM EDT [facility] Influenza B Not Detected Not Detected 10/06/2024 11:38 PM EDT [facility] Parainfluenza 1 Not Detected Not Detected 10/06/2024 11:38 PM EDT [facility] Parainfluenza 2 Not Detected Not Detected 10/06/2024 11:38 PM EDT [facility] Parainfluenza 3 Not Detected Not Detected 10/06/2024 11:38 PM EDT [facility] Parainfluenza 4 Not Detected Not Detected 10/06/2024 11:38 PM EDT [facility] Resp. Syncycial Virus A Not Detected Not Detected 10/06/2024 11:38 PM EDT [facility] Resp. Syncycial Virus B Not Detected Not Detected 10/06/2024 11:38 PM EDT [facility] Chlamydia pneumoniae Not Detected Not Detected 10/06/2024 11:38 PM EDT [facility] Mycoplasma pneumoniae Not Detected Not Detected 10/06/2024 11:38 PM EDT [facility] Comment: The Respiratory Viral-Bacterial [...] results have been sent to the [facility] in accordance with state requirements. For a fact sheet for healthcare providers, see https://www.fda.gov/media/652853/download. For a fact sheet for patients, see https://www.fda.gov/media/121081/download. Nasopharyngeal Swab NASOPHARYNGEAL SWAB / Unknown 10/06/2024 3:12 AM EDT 10/06/2024 5:41 PM EDT Comment:COPING MACHINE OPERATOR us Bisi Hernandez DO BODY FLUIDS AND STOOLS ORDERABLE S Final Result [facility] [address] [place] [address], [facility] * X-ray Portable Chest (10/06/2024 1:16 [...] 10/06/2024 2:33 AM EDT Bisi Hernandez DO [facility] DIAGNOSTIC IMAGING ORDERABLE S Final Result * Phosphatidylethanol Confirmation, B (10/06/2024 1:04 AM EDT) PETH 16:0/18.1 (POPETH) <10 Cutoff: 10 ng/mL 10/10/2024 3:11 AM EDT [facility] Comment: Phosphatidylethanol (PEth) homologues result interpretation [...] Cutoff: 10 ng/mL 10/10/2024 3:11 AM EDT [facility] Comment: PEth 16:0/18:2 (PLPEth) Reference ranges are not well established PEth Interpretation Negative. 10/10 3:11 AM EDT [facility] Comment: ADDITIONAL INFORMATION This report is intended for use in clinical monitoring and management of patients. It is not intended for use in employment-related testing. This test was developed and its performance characteristics determined by [facility] in a manner consistent with CLIA requirements. This test has not been cleared or approved by the U.S. Food and Drug Administration. Test Performed by: [facility] - [address] [address] Senior Programmer: Kathy Ortiz Ph.D.; CLIA# [id number] Whole Blood 10/06/2024 1:04 AM EDT 10/10/2024 3:11 AM EDT [facility] LAB BLOOD ORDERABLES Final Resul t Performing Organization Address City/[facility]/ZIP Co de Phone Number [facility] [address] [place] [address]. [address] * (ABNORMAL) Acetaminophen Level (10/06/2024 1:04 AM EDT) Acetaminophen Level <10(L) 10 - 30 ug/mL 10/06/2024 2:08 AM EDT [facility] Serum 10/06/2024 1:04 AM EDT 10/06/2024 1:30 AM EDT [facility] BLOOD ORDERABLES Final Resul t Performing Organization Address [facility] Co de Phone Number [facility] [address] [place] [address]. [address] * Ethanol, Serum (10/06/2024 1:04 AM EDT) Ethanol <10 0 - 10 mg/dL 10/06/2024 2:08 AM EDT [facility] Serum 10/06/2024 1:04 AM EDT 10/06/2024 1:30 AM EDT [facility] BLOOD ORDERABLES Final Resul t Performing Organization Address City/[facility] Co de Phone Number [address] * #2 Blood culture-Peripheral site 2 (10/06/2024 1:04 AM EDT) Culture Result No Growth After 5 Days [facility] Blood BLOOD SPECIMEN / Unknown 10/06/2024 1:04 AM EDT 10/06/2024 4:57 AM EDT [facility] - 10/11/2024 5:05 AM EDT Suboptimal volume of blood received. Interpret results with caution. Bisi Akana maría DO MICROBIOLOGY - GENERAL ORDERABLE S Final Result [facility] [address] * #1 Blood culture-Peripheral site 1 (10/06/2024 1:04 AM EDT) Culture Result No Growth After 5 Days [facility] Blood BLOOD SPECIMEN / Unknown 10/06/2024 1:04 AM EDT 10/06/2024 4:57 AM EDT Narrative [facility] - 10/11/2024 5:01 AM EDT Suboptimal volume of blood received. Interpret results with caution. [employer] maría DO MICROBIOLOGY - GENERAL ORDERABLE S Final Result [facility] [address] * Ammonia (10/06/2024 1:04 AM EDT) Ammonia 77 27 - 90 ug/dL 10/06/2024 2:00 AM EDT [facility] Plasma 10/06/2024 1:04 AM EDT 10/06/2024 1:30 AM EDT [facility] Final Resul t [facility] [address] * Thyroid Function Taylor (10/06/2024 1:04 AM EDT) TSH 0.84 0.45 - 4.12 uIU/mL 10/06/2024 2:20 AM EDT [facility] Serum 10/06/2024 1:04 AM EDT 10/06/2024 1:39 AM EDT us [employer] DO LAB BLOOD ORDERABLES Final Resul t Performing Organization Address [facility] Co de Phone Number [facility] [address] [facility] * (ABNORMAL) Protime-INR (10/06/2024 1:04 AM EDT) Protime 22.8(H) 12.1 - 15.1 seconds 10/06/2024 1:48 AM EDT [facility] INR 1.9(H) 0.9 - 1.1 10/06/2024 1:48 AM EDT [facility] Comment: RECOMMENDED THERAPEUTIC RANGES USING INR : Stable oral anticoagulant therapy: 2.0 - 3.0 Mechanical prosthetic heart valve: 2.5 - 3.5 Recurrent acute myocardial infarction: 2.5 - 3.5 Plasma 10/06/2024 1:04 AM EDT 10/06/2024 1:30 AM EDT us [facility] BLOOD ORDERABLES Final Resul t Performing Organization Address [facility] Co de Phone Number [facility] [address] [facility] * Lactic Acid, STAT (10/06/2024 1:04 AM EDT) Lactate 1.2 0.5 - 2.2 mmol/L 10/06/2024 1:59 AM EDT [facility] Plasma 10/06/2024 1:04 AM EDT 10/06/2024 1:30 AM EDT [employer] DO LAB BLOOD ORDERABLES Final Resul t Performing Organization Address [facility] Co de Phone Number [facility] [address] [facility] * (ABNORMAL) CBC, STAT (10/06/2024 1:04 AM EDT) WBC 7.9 3.8 - 10.8 10E3/uL 10/06/2024 2:36 AM EDT [facility] RBC 2.76(L) 4.20 - 5.80 10E6/uL 10/06/2024 2:36 AM EDT [facility] Hemoglobin 9.9(L) 13.2 - 17.1 g/dL 10/06/2024 2:36 AM EDT [facility] Hematocrit 28.0(L) 38.5 - 50.0 % 10/06/2024 2:36 AM EDT [facility] MCV 101.5(H) 80.0 - 100.0 fL 10/06/2024 2:36 AM EDT [facility] MCH 35.7(H) 27.0 - 33.0 pg 10/06/2024 2:36 AM EDT [facility] MCHC 35.2 32.0 - 36.0 g/dL 10/06/2024 2:36 AM EDT [facility] RDW 17.9(H) 11.0 - 15.0 % 10/06/2024 2:36 AM EDT [facility] Platelets 58(L) 140 - 400 10E3/uL 10/06/2024 2:36 AM EDT [facility] Comment: Specimen checked for clots. None detected. Slide Reviewed for PLT Clumps. None Seen. MPV 8.2 7.5 - 11.5 fL 10/06/2024 2:36 AM EDT [facility] Whole Blood 10/06/2024 1:04 AM EDT 10/06/2024 1:31 AM EDT us Bisi Hernandez DO LAB BLOOD ORDERABLES Final Resul t [facility] [address] [place] [address], [facility] * (ABNORMAL) Comprehensive Metabolic Panel (10/06/2024 1:04 AM EDT) Sodium 127(L) 133 - 146 mmol/L 10/06/2024 2:05 AM EDT [facility] Potassium 4.5 3.5 - 5.3 mmol/L 10/06/2024 2:05 AM T [facility] Chloride 99 98 - 110 mmol/L 10/06/2024 2:05 AM [facility] CO2 18(L) 21 - 33 mmol/L 10/06/2024 2:05 AM [facility] Anion Gap 10 3 - 16 mmol/L 10/06/2024 2:05 AM [facility] BUN 59(H) 7 - 25 mg/dL 10/06/2024 2:05 AM [facility] Creatinine 3.54(H) 0.60 - 1.30 mg/dL 10/06/2024 2:05 AM [facility] Glucose 116(H) 70 - 100 mg/dL 10/06/2024 2:05 AM [facility] Calcium 9.0 8.6 - 10.3 mg/dL 10/06/2024 2:05 AM [facility] Total Bilirubin 14.8(H) 0.0 - 1.5 mg/dL 10/06/2024 2:05 AM [facility] AST 61(H) 13 - 39 U/L 10/06/2024 2:05 AM [facility] ALT 33 7 - 52 U/L 10/06/2024 2:05 AM [facility] Alkaline Phosphatase 174(H) 36 - 125 U/L 10/06/2024 2:05 AM [facility] Total Protein 5.2(L) 6.4 - 8.9 g/dL 10/06/2024 2:05 AM [facility] Albumin 3.3(L) 3.5 - 5.7 g/dL 10/06/2024 2:05 AM [facility] Osmolality, Calculated 282 278 - 305 mOsm/kg 10/06/2024 2:05 AM [facility] EGFR 21 10/06/2024 2:05 AM [facility] Comment:As of [...] DO LAB BLOOD ORDERABLES Final Resul t [facility] [address] documented in this encounter Visit Diagnoses [...] 1 dose 0827 (New Bag - Provider: nAu Wolff RN) melatonin tablet Tab 6 mg [...] documented as of this encounter Care Teams Supervisor Forming Department Relationship Specialty Start Date End Date Enedina Mcguire NP [address] [place], [place] [id number] PCP - General Internal Medicine 10/05/24 documented as of this encounter
--- OUTSIDE RECORDS SUMMARY | 2024-10-10 12:01 | XMS_ITS | Encounter Summary ---
Author Organization [facility] Address [address] [place] [address] Care Team Providers Care Cutter Apprentice Hand Name Role Phone Enedina Mcguire NP Primary Care Provider [phone] Source Comments This information has been disclosed [...] release of HIV test results or diagnoses. [id number] Reason for Visit * Auth/Cert (Routine) Specialty Diagnoses / Procedures Referred By Shane hernadez Referred To Contact General Internal Medicine Diagnoses [facility] [address] [place] [address] Phone: tel: Referral ID Status Reason Start Date Expiration Date Visits Re quested Visits Authorized [id number] 1 1 Encounter Details Date Type Department Care Team (Late st Contact Info) Description 10/10/2024 12:01 PM EDT Anesthesia Event [facility] ENDOSCOPY [address] [place] [address] Cady Bhat MD [address] [place] [address] Bob Leggett MD [address] [place] [facility] [address] [place] [address] Anesthesia Record Procedure Summary Procedure [...] Recorded In the past 12 months has [employer], [employer], or [employer] threatened to shut off services in your [...] Bhat MD - 10/10/2024 10:15 AM EDT [facility] DEPARTMENT OF ANESTHESIOLOGY PRE-PROCEDURAL EVALUATION [...] Strain: Low Risk (07/09/2024) Received from [facility] Overall Financial Resource Strain (CARDIA) Difficulty of [...] No Physical Activity: Unknown (07/14/2024) Received from [facility] Exercise Vital Sign Days of Exercise per Week: Patient unable to answer Minutes of Exercise per Session: Not on file Stress: Patient Unable To Answer (07/14/2024) Received from [facility] [place] [facility] of Occupational Health - Occupational Stress Questionnaire Feeling of Stress : Patient unable to answer Social Connections: Patient Unable To Answer (07/14/2024) Received from [facility] Social Connection and Isolation Panel [...] in detail. Questions answered. Plan discussed with CIRCLE SHEAR OPERATOR. [1] Allergies Allergen Reactions Adhesive Itching and Rash Tegaderm adhesive on Ivs, pt states its tolerable Duloxetine Other (See Comments) Became Manic documented in this encounter Plan of Treatment Upcoming Encounters Date Type Department Care Team (Late st Contact Info) Description 12/05/2024 8:01 AM EDT Hospital Encounter [facility] ENDOSCOPY [address] [place] [address] Chris Orosco MD [address] [place] [phone] 12/05/2024 8:01 AM EDT - 12/05/2024 8:[address] [facility] ENDOSCOPY [address] [place] [address] Chris Orosco MD [address] [place] [phone] EGD Scheduled Procedures Name Priority Associated Diagnoses [...] 10/09/24699 - 10/10/2465810/10/24699 - 10/11/24 0659 Shift 1757-2203 9916-3739 8897-4655 24 Hour Total 6830-3409 0927-1217 7454-4105 24 Hour Total INTAKE P.O. 210 210 [...] documented as of this encounter Care Teams Cutter Apprentice Hand Relationship Specialty Start Date End Date Enedina Mcguire NP [address] [place] [address] PCP - General Internal Medicine 10/05/24 documented as of this encounter
--- OUTSIDE RECORDS SUMMARY | 2024-10-14 08:42 | XMS_ITS | Encounter Summary ---
Author Organization [facility] Address [facility] [place] [address] Care Team Providers Care Zyglo Technician Name Role Phone Enedina Mcguire NP Primary Care Provider [phone] Source Comments This information has been disclosed [...] release of HIV test results or diagnoses. TFG3281.24 Health Reason for Visit * Auth/Cert (Routine) Specialty Diagnoses / Procedures Referred By Shane hernadez Referred To Contact General Internal Medicine Diagnoses AMS [facility] [address] [place] [address] Phone: tel: Referral ID Status Reason Start Date Expiration Date Visits Re quested Visits Authorized [id number] 1 1 Encounter Details Date Type Department Care Team (Late st Contact Info) Description 10/14/2024 8:42 AM EDT - 10/14/2024 9:27 AM EDT Surgery [facility] Cardiac [address] [place] [address] Irving Matta MD [address] [facility] [place] [address] Left Heart Cath Surgery Details [...] the past 12 months has th e [employer], gas, oil, or water [employer] threatened to shut off services in your [...] any time in the past 12 m [facility], were you homeless or living in a alf (including now)? No 10/06/2024 Yearly Questionnaire Answer [...] Kandy Fuentes - 10/17/2024 10:29 AM EDT [facility] Care Management Discharge Summary Patient [...] post discharge: Not Applicable Kandy BAE [facility] [phone] * William Blount MD - 10/17/2024 8:50 AM EDT [facility] Inpatient Discharge Summary Patient: Julien Gilbert Age: 39 y.o. CSN: [id number] Date of Admission: 10/05/2024 Date of Discharge: [...] Case IDs Date Procedure Surgeon Location Status [id number] 10/10/24 EGD Lino Soto MD ENDOSCOPY Comp [id number] 10/14/24 Left Heart Cath Irving Matta MD [...] at 10/08/2024 1:12 PM EDT US Duplex Fcw-Fux-Kiesjzs Comp Final Result IMPRESSION: ABDOMEN 1. Cirrhotic [...] 90 tablet Refills: 0 naloxone 4 mg/actuation [place] Commonly known as: NARCAN Apply 1 spray [...] Medications These medications were sent to [facility] [id number] Hours: Sunday - Sunday: 8:00AM - 6:00PM FLUoxetine 20 MG capsule lactulose 10 gram/15 mL solution loratadine 10 mg tablet methocarbamoL 500 MG tablet midodrine 10 MG tablet naloxone 4 mg/actuation [place] oxyCODONE 5 MG immediate release tablet Discharge [...] [M54.2, Z98.890] 10/07/2024 SBP (spontaneous bacterial peritonitis) ([facility]) [K65.2] 09/08/2024 Anemia [D64.9] 09/05/2024 Metabolic acidosis [...] Order Questions: Select Supplement: Boost-1 kcal/ml supplement ([facility] only) As listed above, low sodium [...] AM EDT 10/17/2024 naloxone (NARCAN) 4 mg/actuation [place] Apply 1 spray in one nostril if [...] Hughes MD - 10/17/2024 10:23 AM EDT [facility] HEPATOLOGY PROGRESS NOTE Name: Julien Gilbert CSN: [id number] Consulted by: Chelsy Lerner MD Reason for [...] Yes Past Week naloxone (NARCAN) 4 mg/actuation [place] Apply 1 spray in one nostril if [...] nucleated cells, <2000 RBCs 10% Polynuclear, 90% [place] nuc. There were initial reports of gram [...] dependency treatment as outpatient. - [facility] with no obstructive coronary disease - Psych eval for PTSD With recommendation of sertraline - Given his renal dysfunction, will plan to list for [facility] when he qualifies on 10/22/2024. Labs next week - Plan for d/c today Bobby Sidhu MD Transplant Ed Manager Please see the body of the [...] until October 22. Waiting for [facility] today. ASSESSMENT NADIYA on CKD, last discharge [...] Staff. Jeremiah Gamino PGY4 Nephrology. Pager no. [phone] Chief Complaint No chief complaint on file. [...] hyperlipidemia (07/26/2024), Renal cell carcinoma (CMS-HCC), Thrombocytopenia ([facility]), and Thyroid disease. he has a past [...] at 10/08/2024 1:12 PM EDT US Duplex Eoj-Gnh-Wfhywhf Comp Final Result IMPRESSION: ABDOMEN 1. Cirrhotic [...] no head imaging has been performed at [facility]. -CT Head w/o contrast -Imaging showed [...] Order Questions: Select Supplement: Boost-1 kcal/ml supplement ([facility] only) Code Status: Full Code Signed: WILLIAM BLOUNT MD 10/16/2024, 2:16 PM Cosigned by Chelsy Lerner MD at 10/16/2024 5:38 PM EDT Associated attestation - Chelsy Lerner MD - 10/16/2024 5:38 PM EDT [facility] Medicine Attending Supervision Note Julien Gilbert [...] another specialty or practice, other licensed professional (PT/OT/BRIM STIFFENER/RT), or a non-medical community professional: Hepatology, Interventional [...] to positioning during LHC on 10/14. [place] the worst in CVR, but has improved [...] Kumar RD - 10/16/2024 1:08 PM EDT [facility] Medical Nutrition Therapy Follow-Up Diet Order/Nutrition Support: Regular diet, Boost TID - Vanilla preference Pertinent Information: This is a 39 year old male history of ETOH cirrhosis d/b HE, ascites with SBP who is admitted for AMS. Precipitant of his HE likely SBP. Diagnostic paracentesis at OSH reportedly showed 61 nucleated cells, <2000 RBCs 10% Polynuclear, 90% [place] nuc. There were initial reports of gram [...] Based on CBW of 119.5 kg Kcals/day: 9013-3403 (18-21 kcals/kg) Protein g/day: 119-143 (1-1.2 g/kg) [...] Kumar RD, LD Clinical Dietitian Contact via [employer] * Jerad Hughes MD - 10/16/2024 11:03 AM EDT [facility] HEPATOLOGY PROGRESS NOTE Name: Julien Gilbert CSN: [id number] Consulted by: Chelsy Lerner MD Reason for [...] nucleated cells, <2000 RBCs 10% Polynuclear, 90% [place] nuc. There were initial reports of gram [...] dependency treatment as outpatient. - [facility] with no obstructive coronary disease - Psych eval for PTSD With recommendation of sertraline - Given his renal dysfunction, will plan to list for [facility] when he qualifies on 10/22/2024. - Will follow Bobby Sidhu MD Transplant Ed Manager Please see the body of the [...] until October 22. Waiting for [facility] today. ASSESSMENT NADIYA on CKD, last discharge [...] 10/08/2024 Iron%- Iron replete PLAN -[facility] yesterday- patient remains at risk of contrast related injury on top of exisiting NADIYA for 24-48 hrs after contrast load. -He is volume overloaded -patient needs to follow up closely with nephrology after discharge Thank you for allowing us to participate in this patient's care. Discussed with Consult Staff. Jeremiah Gamino PGY4 Nephrology. Pager no. [phone] Chief Complaint No chief complaint on file. [...] at 10/08/2024 1:12 PM EDT US Duplex Mic-Cpn-Xgfpbhl Comp Final Result IMPRESSION: ABDOMEN 1. Cirrhotic [...] Stress ECHO on 10/09 - [facility] today -Per GI recs, started on midodrine [...] no head imaging has been performed at [facility]. -CT Head w/o contrast -Imaging showed [...] Order Questions: Select Supplement: Boost-1 kcal/ml supplement ([facility] only) Code Status: Full Code Signed: WILLIAM BLOUNT MD 10/15/2024, 10:49 AM Cosigned by Chelsy Lerner MD at 10/15/2024 2:47 PM EDT Associated attestation - Chelsy Lerner MD - 10/15/2024 2:47 PM EDT [facility] Medicine Attending Supervision Note Julien Gilbert [...] another specialty or practice, other licensed professional (PT/OT/BRIM STIFFENER/RT), or a non-medical community professional: Hepatology, Interventional [...] to positioning during LHC on 10/14. [place] the worst in CVR, but has improved [...] Hughes MD - 10/15/2024 10:15 AM EDT [facility] HEPATOLOGY PROGRESS NOTE Name: Julien Gilbert CSN: [id number] Consulted by: Chelsy Lerner MD Reason for [...] nucleated cells, <2000 RBCs 10% Polynuclear, 90% [place] nuc. There were initial reports of gram [...] dependency treatment as outpatient. - [facility] yesterday with no obstructive coronary disease - Psych eval for PTSD and medical management - Given his renal dysfunction, will plan to list for [facility] when he qualifies on 10/22/2024. - Will follow Bobby Sidhu MD Transplant Ed Manager Please see the body of the [...] Quan MD - 10/14/2024 2:34 PM EDT [facility] Department of Cardiovascular Health and Diseases [...] until October 22. Waiting for [facility] today. ASSESSMENT NADIYA on CKD, last discharge creatinine 2.4 Baseline Creatinine 1.2-1.3, HRS- NADIYA as no response to holding lasix and albumin UA bland Urine lytes <10/< 15/ 50 Holding lasix give [facility] today Renal Function: Recent Labs 10/14/24 0253 [...] Staff. Jeremiah Gamino PGY4 Nephrology. Pager no. [phone] Chief Complaint No chief complaint on file. [...] at 10/08/2024 1:12 PM EDT US Duplex Xtw-Xsm-Fclkmqn Comp Final Result IMPRESSION: ABDOMEN 1. Cirrhotic [...] Stress ECHO on 10/09 - [facility] today -Per GI recs, started on midodrine [...] no head imaging has been performed at [facility]. -CT Head w/o contrast -Imaging showed [...] dialysis. Patient is going for [facility] today and will receive contrast, okay per [...] Order Questions: Select Supplement: Boost-1 kcal/ml supplement ([facility] only) Code Status: Full Code Signed: [...] another specialty or practice, other licensed professional (PT/OT/BRIM STIFFENER/RT), or a non-medical community professional: Hepatology, Interventional [...] Hughes MD - 10/14/2024 7:42 AM EDT [facility] HEPATOLOGY PROGRESS NOTE Name: Julien Gilbert CSN: [id number] Consulted by: Chelsy Lerner MD Reason for [...] nucleated cells, <2000 RBCs 10% Polynuclear, 90% [place] nuc. There were initial reports of gram [...] Transplant work up ongoing - [facility] today - Transplant nephrology following for consideration [...] - Will follow Bobby Sidhu MD Transplant Ed Manager Please see the body of the [...] Staff. Jeremiah Gamino PGY4 Nephrology. Pager no. [phone] Chief Complaint No chief complaint on file. [...] Hughes MD - 10/13/2024 12:33 PM EDT [facility] HEPATOLOGY PROGRESS NOTE Name: Julien Gilbert CSN: [id number] Consulted by: Fouzia Rene MD Reason for [...] nucleated cells, <2000 RBCs 10% Polynuclear, 90% [place] nuc. There were initial reports of gram [...] Transplant work up ongoing - [facility] today - Transplant nephrology following for consideration [...] - Will follow Bobby Sidhu MD Transplant Ed Manager Please see the body of the [...] no psychomotor abnormalities Cognition: short term and mcfp memory intact Attitude: cooperative Affect: full range [...] Fabian RD - 10/13/2024 10:49 AM EDT [facility] Medical Nutrition Therapy Reason(s) for Completion: [...] Order Questions: Select Supplement: Boost-1 kcal/ml supplement ([facility] only) Pertinent Information: Julien Gilbert is a 39 y.o. Male admitted for Acute kidney injury superimposedon CKD ([facility]) Pt noted to have waxing and waning [...] kg) Body mass index is 32.07 kg/m??. [place] Body Weight: 202 lbs (91.8 kg) +/- 10% Weight History: Wt Readings from Last 10 Encounters: 10/10/24 (!) 263 lb 8 oz (119.5 kg) 09/05/24 (!) 262 lb 9.6 oz (119.1 kg) 09/02/24 (!) 258 lb (117 kg) 08/17/24 (!) 242 lb 11.2 oz (110.1 kg) 07/28/24 (!) 245 lb (111.1 kg) Estimated Nutrition Needs: Based on CBW of 119.5 kg Kcals/day: 2856-0604 (18-21 kcals/kg) Protein g/day: 119-143 (1-1-2 g/kg) [...] Dietitian - Solid Organ Transplant Contact via [employer]renting Chat * Eileen Schroeder MD, PhD - 10/13/2024 8:19 AM EDT Department of Internal Medicine Daily Progress Note Chief Complaint / Reason for Follow-Up Julien Gilbert is a 39 y.o. male on hospital day 8. The principal reason for today's follow up visit is Acute kidney injury superimposed on CKD ([facility]). NAEON Pt felt well this AM. A&O [...] at 10/08/2024 1:12 PM EDT US Duplex Qmg-Nra-Gxxcegq Comp Final Result IMPRESSION: ABDOMEN 1. Cirrhotic [...] no head imaging has been performed at [facility]. -CT Head w/o contrast -Imaging showed [...] Order Questions: Select Supplement: Boost-1 kcal/ml supplement ([facility] only) Code Status: Full Code Signed: [...] I reviewed the documentation by the medical stationary steam engineer and agree as documented. Any additions [...] due to hypotension. Plan for [facility] today, but now moved to tomorrow. - [...] another specialty or practice, other licensed professional (PT/OT/BRIM STIFFENER/RT), or a non-medical community professional: Nephrology, Hepatology [...] at 10/08/2024 1:12 PM EDT US Duplex Kry-Wki-Ldrvoxg Comp Final Result IMPRESSION: ABDOMEN 1. Cirrhotic [...] no head imaging has been performed at [facility]. -CT Head w/o contrast -Imaging showed [...] Order Questions: Select Supplement: Boost-1 kcal/ml supplement ([facility] only) Code Status: Full Code Signed: [...] I reviewed the documentation by the medical stationary steam engineer and agree as documented. Any additions or clarifications are listed below. Daily plan was discussed with patient at bedside and questions addressed. Patient ID: Julien Gilbert is a 39 y.o. male currently admitted for Acute kidney injury superimposed on CKD ([facility]) Supplemental History/ ROS: No acute events overnight [...] for Acute kidney injury superimposed on CKD ([facility]) Active Problems: NADIYA (acute kidney injury) on CKD ([facility]): Hepatorenal syndrome. Appreciate nephrology consult. S/p albumin [...] Continue home lactulose and rifaximin Decompensated cirrhosis ([facility]): Appreciate hepatology consult. He has started his [...] another specialty or practice, other licensed professional (PT/OT/BRIM STIFFENER/RT), or a non-medical community professional: Nephrology, Hepatology [...] workup pre txp. pLan for [facility] Sunday Liver transplant workup per GI/ Primary [...] concern for hepatorenal syndrome.` Patient came from [facility], paracentesis was performed yesterday on 10/05? [...] 706.9 (H) 10/08/2024 No results found for: SAMEHSMF20 , FOLATE Lab Results Component Value Date [...] CRUR No results found for: MICROALBUR , [id number] In addition to the above an extensive [...] 4.6 10/12/2024 Lab Results Component Value Date WJZJ35V 7.1 (L) 10/08/2024 PLAN Monitor renal panel [...] AM Colten Huertas MD, KISHOR LIN, FNKF water resources engineer Div. of Nephrology [facility] E-mail: [email or web address] This note was completely edited, written and [...] Interval hx No issues. Pending [facility]. Assessment: Renal Function: Cr: 2.77 Bun: 49 [...] concern for hepatorenal syndrome.` Patient came from [facility], paracentesis was performed yesterday on 10/05? [...] 706.9 (H) 10/08/2024 No results found for: [id number] , FOLATE Lab Results Component Value Date [...] CRUR No results found for: MICROALBUR , [id number] In addition to the above an extensive [...] 3.5 10/11/2024 Lab Results Component Value Date QFDK44O 7.1 (L) 10/08/2024 PLAN Monitor renal panel [...] AM Colten Huertas MD, KISHOR LIN, CATHYF water resources engineer Div. of Nephrology [facility] E-mail: [email or web address] This note was completely edited, written and [...] at 10/08/2024 1:12 PM EDT US Duplex Lak-Ffw-Ukeqeuj Comp Final Result IMPRESSION: ABDOMEN 1. Cirrhotic [...] from outside facility. Will engage with them daily([phone]. Ask to speak to a tech) about [...] no head imaging has been performed at [facility]. -CT Head w/o contrast -Imaging showed [...] Order Questions: Select Supplement: Boost-1 kcal/ml supplement ([facility] only) Code Status: Full Code Signed: [...] I reviewed the documentation by the medical stationary steam engineer and agree as documented. 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 Not a candidate for terlipressin [...] Ignacio Queen MD Renal Fellow Pager # [phone] Chief Complaint No chief complaint on file. [...] concern for hepatorenal syndrome.` Patient came from [facility], paracentesis was performed yesterday on 10/05? [...] PHOS -- < > 3.5 3.4 3.3 MXKI67R 7.1* -- -- -- -- < > = values in this interval not displayed. Lab Results Component Value Date IRON 81 10/08/2024 TIBC SEE COMMENT 10/08/2024 FERRITIN 706.9 (H) 10/08/2024 No results found for: [id number] , FOLATE Lab Results Component Value Date [...] CRUR No results found for: MICROALBUR , [id number] In addition to the above an extensive [...] 3.3 10/10/2024 Lab Results Component Value Date SRPZ18Y 7.1 (L) 10/08/2024 PLAN Continue IV albumin [...] AM Colten Huertas MD, DELIA, KISHOR, FNKF water resources engineer Div. of Nephrology [facility] E-mail: [email or web address] This note was completely edited, written and [...] to follow pt while pt is at [facility]. * Jodi Ortiz PharmD - 10/10/2024 10:27 AM EDT Clinical Pharmacy Service: Vancomycin Consult Progress Note Patient has been transitioned off of vancomycin therapy per team notes and orders. Pharmacy will sign-off at this time, please do not hesitate to consult again as needs arise. Thank you for involving pharmacy in the care of this patient. Jodi Ortiz PharmD Clinical Proof Press Operator, Internal Medicine Preferred contact: [employer] Clinical Xegomzx-Ot-Qqxy Pager: [phone] October 10, 2024 10:27 AM Laboratory Data [...] 10/07/2024 10:50 PM Giardia Cryptosporidium Antigens Final [id number] 10/07/2024 10:50 PM Ova and Parasite Comprehensive w/ Giardia/Crypto Final [id number] Feces 10/06/2024 1:04 AM #2 Blood culture-Peripheral site 2 Preliminary [id number] Peripheral 10/06/2024 1:04 AM #1 Blood culture-Peripheral site 1 Preliminary [id number] Peripheral Pharmacokinetics Lab Results (Last 7 days) Today 0523 Yesterday 04510/08 0536 [facility] Rdm 16.4 11.0 16.0 * Gerri Petersno MD - 10/10/2024 10:09 AM EDT [facility] HEPATOLOGY PROGRESS NOTE Name: Julien iGlbert CSN: [id number] Consulted by: Fouzia Rene MD Reason for [...] nucleated cells, <2000 RBCs 10% Polynuclear, 90% [place] nuc. Per OSH reports, ascitic fluid cultures [...] target HR. -cardiology consult for [facility] on Sunday - Transplant nephrology following for [...] from the original note were not included. [facility] Clinical Pharmacy Service: Vancomycin Monitoring [...] in sodium chloride 0.9 % 250 mL Wvtg9Rmq (Completed) 1,500 mg Once 10/09/2024 10/09/2024 Admin Instructions: Contact pharmacy if there is a question/concern of whether vancomycin should begiven based on serum drug levels. Use Gdud8Aup Adapter - Mix Thoroughly Before Administration Route: Intravenous vancomycin (VANCOCIN) 1,500 mg in sodium chloride 0.9 % 250 mL Uuop0Ilq 1,500 mg Once 10/10/2024 10/11/2024 Admin Instructions: Contact pharmacy if there is a question/concern of whether vancomycin should begiven based on serum drug levels. Use Mgfi2Plw Adapter - Mix Thoroughly Before Administration Route: [...] in sodium chloride 0.9 % 250 mL Akkl6Qpq 1,500 mg 166.7 mL/hr 10/08/24 1259 New Bag vancomycin (VANCOCIN) 1,000 mg in sodium chloride 0.9 % 250 mL Ceuq8Dbe 1,000 mg 250 mL/hr --Objective Data-- Vitals: [...] 53 53 54 Creatinine 2.85 2.89 3.04 [place] body weight: 86.8 kg (191 lb 5.7 oz) Adjusted ideal body weight: 99.9 kg (220 lb 3.5 oz) Estimated CrCl: ~35-45 mL/min --Cultures-- Microbiology Results Date and Time Order Name Sensitivity Status Organisms Specimen ID Source 10/07/2024 10:50 PM Giardia Cryptosporidium Antigens Final [id number] 10/07/2024 10:50 PM Ova and Parasite Comprehensive w/ Giardia/Crypto Final [id number] Feces 10/06/2024 1:04 AM #2 Blood culture-Peripheral site 2 Preliminary [id number] Peripheral 10/06/2024 1:04 AM #1 Blood culture-Peripheral site 1 Preliminary [id number] Peripheral --Vancomycin Concentrations-- Lab Results (Last 7 [...] for the consult. Jodi Ortiz PharmD Clinical Proof Press Operator, Internal Medicine Preferred contact: [employer] Clinical Wmedjzq-Of-Lsty Pager: [phone] October 10, 2024 9:13 AM * Eileen Schroeder MD, PhD - 10/10/2024 8:17 AM EDT Department of Internal Medicine Daily Progress Note Chief Complaint / Reason for Follow-Up Julien Gilbert is a 39 y.o. male on hospital day 5. The principal reason for today's follow up visit is Acute kidney injury superimposed on CKD ([facility]). KARENYeniMERLINE Pt was very conversational today. A&O [...] at 10/08/2024 1:12 PM EDT US Duplex Exy-Yts-Mgglhub Comp Final Result IMPRESSION: ABDOMEN 1. Cirrhotic [...] from outside facility. Will engage with them daily([phone]. Ask to speak to a tech) about [...] no head imaging has been performed at [facility]. -CT Head w/o contrast -Imaging showed [...] Order Questions: Select Supplement: Boost-1 kcal/ml supplement ([facility] only) Code Status: Full Code Signed: [...] I reviewed the documentation by the medical stationary steam engineer and agree as documented. Any additions or clarifications are listed below. Daily plan was discussed with patient at bedside and questions addressed. Patient ID: Julien Gilbert is a 39 y.o. male currently admitted for Acute kidney injury superimposed on CKD ([facility]) Supplemental History/ ROS: No acute events overnight [...] for Acute kidney injury superimposed on CKD ([facility]) Active Problems: Spontaneous Bacterial Peritonitis ([facility]): Cultures from OSH were reported as growing [...] Continue home lactulose and rifaximin Decompensated cirrhosis ([facility]): Appreciate hepatology consult. He has started his [...] IR. NADIYA (acute kidney injury) on CKD ([facility]): Appreciate nephrology consult. 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 Considering para today, cardiac workup pre txp Liver transplant workup per GI/ Primary team, considering for [facility], seen by renal transplant team Thank you for allowing us to participate in this patient's care. Discussed with Consult Staff. Ignacio Queen MD Renal Fellow Pager # [phone] Chief Complaint No chief complaint on file. [...] concern for hepatorenal syndrome.` Patient came from [facility], paracentesis was performed yesterday on 10/05? [...] 9.0 9.3 PHOS -- 3.5 3.5 3.4 [id number] 7.1* -- -- -- Lab Results Component Value Date IRON 81 10/08/2024 TIBC SEE COMMENT 10/08/2024 FERRITIN 706.9 (H) 10/08/2024 No results found for: [id number] , FOLATE Lab Results Component Value Date [...] CRUR No results found for: MICROALBUR , [id number] In addition to the above an extensive [...] 3.4 10/09/2024 Lab Results Component Value Date STTT90V 7.1 (L) 10/08/2024 PLAN Continue IV albumin [...] PM Colten Huertas MD, KISHOR LIN, CATHYF water resources engineer Div. of Nephrology [facility] E-mail: [email or web address] This note was completely edited, written and [...] Peterson MD - 10/09/2024 1:07 PM EDT [facility] HEPATOLOGY PROGRESS NOTE Name: Julien Gilbert CSN: [id number] Consulted by: Fouzia Rene MD Reason for [...] nucleated cells, <2000 RBCs 10% Polynuclear, 90% Merced nuc. Fluid cultures reportedly grew gram + [...] from the original note were not included. [facility] Clinical Pharmacy Service: Vancomycin Monitoring [...] in sodium chloride 0.9 % 250 mL Thdm0Vbe (Completed) 1,000 mg Once 10/08/2024 10/08/2024 Admin Instructions: Contact pharmacy if there is a question/concern of whether vancomycin should begiven based on serum drug levels. Use Bwiu1Gzi Adapter - Mix Thoroughly Before Administration Route: Intravenous vancomycin (VANCOCIN) 1,500 mg in sodium chloride 0.9 % 250 mL Joyb0Yfs 1,500 mg Once 10/09/2024 10/10/2024 Admin Instructions: Contact pharmacy if there is a question/concern of whether vancomycin should begiven based on serum drug levels. Use Qnsb3Zki Adapter - Mix Thoroughly Before Administration Route: [...] in sodium chloride 0.9 % 250 mL Hdeb1Xyd 1,000 mg 250 mL/hr 10/06/24 1413 New [...] 10/07/2024 10:50 PM Giardia Cryptosporidium Antigens Final [id number] 10/07/2024 10:50 PM Ova and Parasite Comprehensive w/ Giardia/Crypto Final [id number] Feces 10/06/2024 1:04 AM #2 Blood culture-Peripheral site 2 Preliminary [id number] Peripheral 10/06/2024 1:04 AM #1 Blood culture-Peripheral site 1 Preliminary [id number] Peripheral --Vancomycin Concentrations-- Lab Results (Last 7 [...] for the consult. Jodi Ortiz PharmD Clinical Proof Press Operator, Internal Medicine Preferred contact: [employer] Clinical Plqeyjo-Ln-Kczg Pager: [phone] October 09, 2024 8:29 AM * Eileen Schroeder MD, PhD - 10/09/2024 8:00 AM EDT Department of Internal Medicine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 Procedure Patient Class Inpatient [1] Patient Active Problem List Diagnosis Decompensated cirrhosis ([facility]) NADIYA (acute kidney injury) ([facility]) Alcohol use disorder Metabolic encephalopathy Hypertension Other hyperlipidemia Thrombocytopenia ([facility]) Renal mass, left Abdominal pain [...] NAGMA related to diarrhea No 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 Discussed with Consult Staff. Ignacio Queen MD Renal Fellow Pager # [phone] Chief Complaint No chief complaint on file. [...] concern for hepatorenal syndrome.` Patient came from [facility], paracentesis was performed yesterday on 10/05? [...] TIBC , FERRITIN No results found for: [id number] , FOLATE Lab Results Component Value Date [...] CRUR No results found for: MICROALBUR , [id number] In addition to the above an extensive [...] 5.3 (H) 10/06/2024 No results found for: [id number] PLAN Patient seen labs reviewed Unclear baseline serum creat Recent episode of acute kidney injury requiring hospitalization Now has [id number] episode of NADIYA Underwent paracentesis 3 days [...] team Colten Huertas MD, KISHOR LIN FNKF water resources engineer Div. of Nephrology [facility] E-mail: [email or web address] Jerad Hughes MD - 10/06/2024 9:28 AM EDTAssociated Order(s): IP CONSULT TO LIVER [facility] HEPATOLOGY CONSULT NOTE Name: Julien Gilbert CSN: [id number] Consulted by: Angie Blanchard MD Reason for Consult: Decompensated Cirrhosis History of Present Illness: Julien Gilbert is a 39 y.o. with history of decompensated EtOH cirrhosis (complicated by EV, HRS, ascites, HE), HTN, and CKD. Patient admitted as transfer from [facility] ED with confusion and lethargy. [...] to diarrhea. Patient was recently referred to [facility] for liver transplant evaluation. Patient was evaluated by transplant social contact worker on 09/25/2024 and it was determined [...] verbalize understanding. Transported via wheelchair to the [facility] to bepicked up for a lyft. * Dylan Dong RN - 10/14/2024 2:20 PM EDT Pt returned from [employer] status post [facility]. Bedside report received from [employer] conservation lab[employer], RN. Pt placed on telemetry, serial vital signs set up. Access site: RRA. Site is soft, no bleeding/hematoma, [address] Sheath removed in [employer] at 1402, TR band placed to [...] EDT Pt arrived with and admitted into [facility] from [facility] with AMS. Oresetst paged to the bedside at this time. [...] Patient will remain free of falls Goal: [place] Fall Precautions Outcome: Progressing Problem: Daily Care Goal: Daily care needs are met Description: Assess and monitor ability to perform self care and identify potential discharge needs. Outcome: Progressing * Care Coordination - Kandy Fuentes - 10/16/2024 11:33 AM EDT [facility] Case Management/Social Work Department Progress [...] disease. PCP: Enedina Mcguire NP Home Pharmacy: [facility] [address] [place] [address], [facility] [address] [address] [facility] [address] [facility] [id number] Medical Insurance Coverage: Payor: [employer] / Plan: [facility] / Product Type: *No Producttype* / Other Pertinent Information RN/CM received update from team and completed chart review. Pt is not medically ready for discharge. Nephrology to see today. Here for pre-transplant work up. Discharge Plan Anticipated discharge plan: home Anticipated discharge date: 10/17/24 CM/SW will continue to follow and remain available for discharge planning needs. Kandy BAE [facility] * Plan of Care - [...] Patient will remain free of falls Goal: [place] Fall Precautions Outcome: Progressing Problem: Daily Care [...] Patient will remain free of falls Goal: [place] Fall Precautions Outcome: Progressing Problem: Daily Care [...] Kandy Fuentes - 10/15/2024 2:26 PM EDT [facility] Case Management/Social Work Department Progress Note Patient Information Patient Name: Julien Gilbert Hospital day: 10 Inpatient/Observation: Inpatient Level of Care: blue Admit date: 10/05/2024 Admission diagnosis: AMS PMH: has a past medical history of Alcoholic cirrhosis of liver ([facility]), Esophageal varices ([facility]), Hepatorenal syndrome ([facility]), Hypertension, Other hyperlipidemia (07/26/2024), Renal cell carcinoma ([facility]), Thrombocytopenia ([facility]), and Thyroid disease. PCP: Enedina Mcguire NP Home Pharmacy: [facility] [address] [place], [place] [address]DO [facility] [address] [address] [facility] [address] [facility] [id number] Medical Insurance Coverage: Payor: [facility] / Plan: [facility] / Product Type: *No Producttype* / Other Pertinent Information RN/CM received update from team and completed chart review. Pt is not medically ready for discharge. Nephrology following. Watching creatinine levels. Had left heart cath yesterday. Discharge Plan Anticipated discharge plan: home Anticipated discharge date: 10/16/24 CM/SW will continue to follow and remain available for discharge planning needs. Kandy BAE [facility] * Plan of Care - [...] Patient will remain free of falls Goal: [place] Fall Precautions Outcome: Progressing Problem: Daily Care [...] Kandy Fuentes - 10/14/2024 11:10 AM EDT [facility] Case Management/Social Work Department Progress Note Patient Information Patient Name: Julien Gilbert Hospital day: 9 Inpatient/Observation: Inpatient Level of Care: blue Admit date: 10/05/2024 Admission diagnosis: AMS PMH: has a past medical history of Alcoholic cirrhosis of liver (CMS-HCC), Esophageal varices ([facility]), Hepatorenal syndrome ([facility]), Hypertension, Other hyperlipidemia (07/26/2024), Renal cell carcinoma (CMS-HCC), Thrombocytopenia ([facility]), and Thyroid disease. PCP: Enedina Mgcuire NP Home Pharmacy: [facility] [address] [place] [address] [facility] [address] [facility] [id number] Medical Insurance Coverage: Payor: [facility] / Plan: [facility] / Product Type: *No Producttype* [...] Kandy Fuentes - 10/13/2024 11:53 AM EDT [facility] Case Management/Social Work Department Progress Note Patient Information Patient Name: Julien Gilbert Hospital day: 8 Inpatient/Observation: Inpatient Level of Care: blue Admit date: 10/05/2024 Admission diagnosis: AMS PMH: has a past medical history of Alcoholic cirrhosis of liver (CMS-HCC), Alcoholic hepatitis, Esophageal varices (CMS-HCC), Hepatorenal syndrome (CMS- HCC), Hypertension, Other hyperlipidemia (07/26/2024), Renal cell carcinoma (CMS-HCC), Thrombocytopenia ([facility]), and Thyroid disease. PCP: Enedina Mcguire NP Home Pharmacy: [facility] [address] [place] [address], [facility] [address] [address] [facility] [address] [facility] [address] Medical Insurance Coverage: Payor: [facility] / Plan: [facility] / Product Type: *No Producttype* / Other Pertinent Information RN/TAYLOR received update from team and completed chart review. Pt is not medically ready for discharge. Patient is going to have left heart cath today. Discharge Plan Anticipated discharge plan: home Anticipated discharge date: 10/14/24 CM/SW will continue to follow and remain available for discharge planning needs. Kandy BAE [facility] * Plan of Care - [...] Kandy Fuentes - 10/10/2024 12:00 PM EDT [facility] Case Management/Social Work Department Progress [...] disease. PCP: Enedina Mcguire NP Home Pharmacy: [facility] [address] [place], [place] [address] [address] [facility] [address] [facility] [id number] Medical Insurance Coverage: Payor: [facility] / Plan: [facility] / Product Type: *No Producttype* [...] Patient will remain free of falls Goal: [place] Fall Precautions Outcome: Progressing Problem: Daily Care [...] Patient will remain free of falls Goal: [place] Fall Precautions Outcome: Progressing Problem: Daily Care [...] Kandy Fuentes - 10/09/2024 12:05 PM EDT [facility] Case Management/Social Work Department Progress [...] disease. PCP: Enedina Mcguire NP Home Pharmacy: [facility] [address] [place], [facility] [address] [address] [facility] [address] [facility] [id number] Medical Insurance Coverage: Payor: [facility] / Plan: [facility] / Product Type: *No Producttype* [...] Kandy Fuentes - 10/08/2024 3:41 PM EDT [facility] Case Management/Social Work Department Progress Note Patient Information Patient Name: Julien Gilbert Hospital day: 3 Inpatient/Observation: Inpatient Level of Care: blue Admit date: 10/05/2024 Admission diagnosis: AMS PMH: has a past medical history of Alcoholic cirrhosis of liver (CMS-HCC), Alcoholic hepatitis, Esophageal varices (CMS-HCC), Hepatorenal syndrome (CMS- HCC), Hypertension, Other hyperlipidemia (07/26/2024), Renal cell carcinoma (CMS-HCC), Thrombocytopenia ([facility]), and Thyroid disease. PCP: Enedina Mcguire NP Home Pharmacy: [facility] [address] [place] [address] [facility] [address] [facility] [id number] Medical Insurance Coverage: Payor: [facility] / Plan: [facility] / Product Type: *No Producttype* [...] Kandy Fuentes - 10/07/2024 3:22 PM EDT [facility] Case Management/Social Work Department Progress Note Patient Information Patient Name: Julien Gilbert Hospital day: 2 Inpatient/Observation: Inpatient Level of Care: blue Admit date: 10/05/2024 Admission diagnosis: AMS PMH: has a past medical history of Alcoholic cirrhosis of liver (CMS-HCC), Alcoholic hepatitis, Esophageal varices (CMS-HCC), Hepatorenal syndrome (CMS- HCC), Hypertension, Other hyperlipidemia (07/26/2024), Renal cell carcinoma (CMS-HCC), Thrombocytopenia ([facility]), and Thyroid disease. PCP: Enedina Mcguire NP Home Pharmacy: [facility] [address] [place] [address] [facility] [address] [facility] [address] Medical Insurance Coverage: Payor: [facility] / Plan: [facility] / Product Type: *No Producttype* [...] Patient will remain free of falls Goal: [place] Fall Precautions Outcome: Progressing Problem: Daily Care [...] Description 12/05/2024 8:01 AM EDT Hospital Encounter [facility] ENDOSCOPY [address] [place] [address] Chris Orosco MD [address] [place] [phone] 12/05/2024 8:01 AM EDT - 12/05/2024 8:31 AM EDT Surgery [facility] ENDOSCOPY [address] [place] [address] Chris Orosco MD [address] [place] [phone] EGD Scheduled Procedures Name Priority Associated Diagnoses Date/Ti me EGD Cirrhosis of liver with ascites, unspecified hepatic cirrhosis type ([facility]) 12/05/2024 8:01 AM EDT documented as of [...] IGG ANTIBODY Routine 10/07/2024 6:37 PM EDT [id number] (AAT) QUANTITATION & MUTATION Routine 10/07/2024 6:37 [...] Routine 10/07/2024 6:19 PM EDT US DUPLEX [id number] COMPLETE Routine 10/07/2024 3:48 PM EDT US [...] 10/06/2024 4:01 AM EDT UPPER RESPIRATORY VIRAL/BACTERIAL PANEL-COOLER SERVICE SUPERVISOR ONLY Routine 10/06/2024 3:12 AM EDT [...] - 146 mmol/L 10/17/2024 7:02 AM T [facility] Potassium 3.4(L) 3.5 - 5.3 mmol/L 10/17/2024 7:02 AM [facility] Chloride 104 98 - 110 mmol/L 10/17/2024 7:02 AM EDT [facility] CO2 18(L) 21 - 33 mmol/L 10/17/2024 7:02 AM [facility] Anion Gap 11 3 - 16 mmol/L 10/17/2024 7:02 AM [facility] BUN 54(H) 7 - 25 mg/dL 10/17/2024 7:02 AM [facility] Creatinine 2.88(H) 0.60 - 1.30 mg/dL 10/17/2024 7:02 AM [facility] Glucose 127(H) 70 - 100 mg/dL 10/17/2024 7:02 AM [facility] Calcium 8.2(L) 8.6 - 10.3 mg/dL 10/17/2024 7:02 AM [facility] Phosphorus 4.5 2.1 - 4.7 mg/dL 10/17/2024 7:02 AM [facility] Albumin 3.1(L) 3.5 - 5.7 g/dL 10/17/2024 7:02 AM [facility] Osmolality, Calculated 292 278 - 305 mOsm/kg 10/17/2024 7:02 AM [facility] EGFR 27 10/17/2024 7:02 AM [facility] Comment:As of 2021, the estimated [...] M, Olivia DC, Emerita ND, Madelyn [place], Taxi Servicer [place], et al. A Unifying Approach for GFR Estimation: Recommendations of the NKF-ASN Task Force on Reassessing the inclusion of Race in Diagnosing Kidney Disease. Am J Kidney Dis. 2020. Plasma 10/17/2024 5:48 AM EDT 10/17/2024 6:32 AM EDT Eileen Schroeder MD, PhD LAB BLOOD ORDERABLES Final Result Performing Organization Address [facility] de Phone Number [facility] [address] [facility] * (ABNORMAL) Protime-INR (10/16/2024 6:31 AM EDT) Protime 22.5(H) 12.1 - 15.1 seconds 10/16/2024 8:04 AM EDT [facility] INR 1.9(H) 0.9 - 1.1 10/16/2024 8:04 AM EDT [facility] Comment: RECOMMENDED THERAPEUTIC RANGES USING INR : Stable oral anticoagulant therapy: 2.0 - 3.0 Mechanical prosthetic heart valve: 2.5 - 3.5 Recurrent acute myocardial infarction: 2.5 - 3.5 Plasma 10/16/2024 6:31 AM EDT 10/16/2024 6:56 AM EDT Eileen Schroeder MD, PhD LAB BLOOD ORDERABLES Final Result Performing Organization Address [facility] de Phone Number [facility] [address] [facility]. [address] * (ABNORMAL) Hepatic Function Panel (10/16/2024 6:31 AM EDT) Total Bilirubin 7.6(H) 0.0 - 1.5 mg/dL 10/16/2024 7:24 AM EDT [facility] Bilirubin, Direct 3.97(H) 0.00 - 0.40 mg/dL 10/16/2024 7:24 AM EDT [facility] AST 45(H) 13 - 39 U/L 10/16/2024 7:24 AM EDT [facility] ALT 23 7 - 52 U/L 10/16/2024 7:24 AM EDT [facility] Alkaline Phosphatase 137(H) 36 - 125 U/L 10/16/2024 7:24 AM EDT [facility] Total Protein 5.1(L) 6.4 - 8.9 g/dL 10/16/2024 7:24 AM EDT [facility] Albumin 3.4(L) 3.5 - 5.7 g/dL 10/16/2024 7:24 AM EDT [facility] Bilirubin, Indirect 3.63(H) 0.00 - 1.10 mg/dL 10/16/2024 7:24 AM EDT [facility] Plasma 10/16/2024 6:31 AM EDT 10/16/2024 6:56 AM EDT us Eileen Schroeder MD, PhD LAB BLOOD ORDERABLES Final Result Performing Organization Address [facility]/ZIP Co de Phone Number [facility] [address] * Magnesium (10/16/2024 6:31 AM EDT) Magnesium 2.1 1.5 - 2.5 mg/dL 10/16/2024 7:24 AM EDT [facility] Plasma 10/16/2024 6:31 AM EDT 10/16/2024 6:56 AM EDT us Eileen Schroeder MD, PhD LAB BLOOD ORDERABLES Final Result Performing Organization Address [facility]/ZIP Co de Phone Number [facility] [address] * (ABNORMAL) Renal Function Panel w/EGFR (10/16/2024 6:31 AM EDT) Sodium 135 133 - 146 mmol/L 10/16/2024 7:24 AM EDT [facility] Potassium 3.7 3.5 - 5.3 mmol/L 10/16/2024 7:24 AM EDT [facility] Chloride 106 98 - 110 mmol/L 10/16/2024 7:24 AM EDT [facility] CO2 16(L) 21 - 33 mmol/L 10/16/2024 7:24 AM EDT [facility] Anion Gap 13 3 - 16 mmol/L 10/16/2024 7:24 AM EDT [facility] BUN 55(H) 7 - 25 mg/dL 10/16/2024 7:24 AM EDT [facility] Creatinine 3.20(H) 0.60 - 1.30 mg/dL 10/16/2024 7:24 AM EDT [facility] Glucose 121(H) 70 - 100 mg/dL 10/16/2024 7:24 AM EDT [facility] Calcium 8.5(L) 8.6 - 10.3 mg/dL 10/16/2024 7:24 AM EDT [facility] Phosphorus 4.2 2.1 - 4.7 mg/dL 10/16/2024 7:24 AM EDT [facility] Albumin 3.4(L) 3.5 - 5.7 g/dL 10/16/2024 7:24 AM EDT [facility] Osmolality, Calculated 296 278 - 305 mOsm/kg 10/16/2024 7:24 AM EDT [facility] EGFR 24 10/16/2024 7:24 AM EDT [facility] Comment:As of 2021, the estimated [...] LAB BLOOD ORDERABLES Final Result [facility] [facility] [address] [place] [address], [facility] * (ABNORMAL) CBC (10/16/2024 6:31 AM EDT) WBC 5.8 3.8 - 10.8 10E3/uL 10/16/2024 8:00 AM EDT [facility] RBC 2.16(L) 4.20 - 5.80 10E6/uL 10/16/2024 8:00 AM EDT [facility] Hemoglobin 7.7(L) 13.2 - 17.1 g/dL 10/16/2024 8:00 AM EDT [facility] Hematocrit 22.1(L) 38.5 - 50.0 % 10/16/2024 8:00 AM EDT [facility] MCV 102.3(H) 80.0 - 100.0 fL 10/16/2024 8:00 AM EDT [facility] MCH 35.7(H) 27.0 - 33.0 pg 10/16/2024 8:00 AM EDT [facility] MCHC 34.9 32.0 - 36.0 g/dL 10/16/2024 8:00 AM EDT [facility] RDW 17.7(H) 11.0 - 15.0 % 10/16/2024 8:00 AM EDT [facility] Platelets 43(L) 140 - 400 10E3/uL 10/16/2024 8:00 AM EDT [facility] Comment: Specimen checked for clots. None detected. Slide Reviewed for PLT Clumps. None Seen. Platelet Estimate Decreased 10/16/2024 8:00 AM EDT [facility] MPV 8.6 7.5 - 11.5 fL 10/16/2024 8:00 AM EDT [facility] Whole Blood 10/16/2024 6:31 AM EDT 10/16/2024 6:57 AM EDT Narrative [facility] - 10/16/2024 8:00 AM EDT Peripheral blood smear was scanned per review criteria approved by the laboratory medical affairs leader. us Eileen Schroeder MD, PhD LAB BLOOD ORDERABLES Final Result [facility] [address] [place] [address], [facility] * CARISA Rhythm Strip - Scan (10/15/2024 8:02 PM EDT) us Scanning Uchhim SCAN DOCS - NO RESULTS Final Res ult * CARISA Rhythm Strip - Scan (10/15/2024 8:02 PM EDT) us Scanning Uchhim SCAN DOCS - NO RESULTS Final Res ult * Prepare Platelets, leukoreduced, 1 Units (10/15/2024 6:16 AM EDT) Product Code G0446O00 HCLL Unit Number [id number] HCLL Dispense Status Presumed Transfused_PT HCLL Blood Expiration Date [id number] HCLL Coding System [id number] HCLL Blood Bank Product Eleazar Nguyễn MD BLOOD BANK PRODUCT ORDE RABJOSE R Final Result Performing Organization Address [facility] Co de Phone Number HCLL * Prepare Fresh Frozen Plasma, 1 Units (10/15/2024 6:15 AM EDT) Product Code H8616K67 HCLL Unit Number [id number] HCLL Dispense Status Presumed Transfused_PT HCLL Blood Expiration Date [id number] HCLL Coding System [id number] HCLL Blood Bank Product Eleazar Nguyễn MD [...] BLOOD ORDERABLES Final Result [facility] [address] [place] [address], [facility] * (ABNORMAL) Hepatic Function Panel (10/15/2024 6:08 AM EDT) Total Bilirubin 7.1(H) 0.0 - 1.5 mg/dL 10/15/2024 6:45 AM EDT [facility] Bilirubin, Direct 3.77(H) 0.00 - 0.40 mg/dL 10/15/2024 6:45 AM EDT [facility] AST 39 13 - 39 U/L 10/15/2024 6:45 AM EDT [facility] ALT 22 7 - 52 U/L 10/15/2024 6:45 AM EDT [facility] Alkaline Phosphatase 115 36 - 125 U/L 10/15/2024 6:45 AM EDT [facility] Total Protein 4.8(L) 6.4 - 8.9 g/dL 10/15/2024 6:45 AM EDT [facility] Albumin 3.2(L) 3.5 - 5.7 g/dL 10/15/2024 6:45 AM EDT [facility] Bilirubin, Indirect 3.33(H) 0.00 - 1.10 mg/dL 10/15/2024 6:45 AM EDT [facility] Plasma 10/15/2024 6:08 AM EDT 10/15/2024 6:17 AM EDT us Eileen Schroeder MD, PhD LAB BLOOD ORDERABLES Final Result Performing Organization Address City/[facility]/ZIP Co de Phone Number [facility] [address] * Magnesium (10/15/2024 6:08 AM EDT) Magnesium 1.8 1.5 - 2.5 mg/dL 10/15/2024 6:45 AM EDT [facility] Plasma 10/15/2024 6:08 AM EDT 10/15/2024 6:17 AM EDT us Eileen Schroeder MD, PhD LAB BLOOD ORDERABLES Final Result Performing Organization Address [facility] de Phone Number [facility] [address] * (ABNORMAL) Renal Function Panel w/EGFR (10/15/2024 6:08 AM EDT) Sodium 135 133 - 146 mmol/L 10/15/2024 6:45 AM EDT [facility] Potassium 3.4(L) 3.5 - 5.3 mmol/L 10/15/2024 6:45 AM EDT [facility] Chloride 107 98 - 110 mmol/L 10/15/2024 6:45 AM EDT [facility] CO2 17(L) 21 - 33 mmol/L 10/15/2024 6:45 AM EDT [facility] Anion Gap 11 3 - 16 mmol/L 10/15/2024 6:45 AM EDT [facility] BUN 55(H) 7 - 25 mg/dL 10/15/2024 6:45 AM EDT [facility] Creatinine 2.88(H) 0.60 - 1.30 mg/dL 10/15/2024 6:45 AM EDT [facility] Glucose 125(H) 70 - 100 mg/dL 10/15/2024 6:45 AM EDT [facility] Calcium 8.4(L) 8.6 - 10.3 mg/dL 10/15/2024 6:45 AM EDT [facility] Phosphorus 3.9 2.1 - 4.7 mg/dL 10/15/2024 6:45 AM EDT [facility] Albumin 3.2(L) 3.5 - 5.7 g/dL 10/15/2024 6:45 AM EDT [facility] Osmolality, Calculated 297 278 - 305 mOsm/kg 10/15/2024 6:45 AM EDT [facility] EGFR 27 10/15/2024 6:45 AM EDT [facility] Comment:As of 2021, the estimated [...] LAB BLOOD ORDERABLES Final Result [facility] [address] [address] * (ABNORMAL) CBC (10/15/2024 6:08 AM EDT) WBC 4.6 3.8 - 10.8 10E3/uL 10/15/2024 6:51 AM EDT [facility] RBC 1.94(L) 4.20 - 5.80 10E6/uL 10/15/2024 6:51 AM EDT [facility] Hemoglobin 7.1(L) 13.2 - 17.1 g/dL 10/15/2024 6:51 AM EDT [facility] Hematocrit 19.6(L) 38.5 - 50.0 % 10/15/2024 6:51 AM EDT [facility] MCV 100.8(H) 80.0 - 100.0 fL 10/15/2024 6:51 AM EDT [facility] MCH 36.7(H) 27.0 - 33.0 pg 10/15/2024 6:51 AM EDT [facility] MCHC 36.4(H) 32.0 - 36.0 g/dL 10/15/2024 6:51 AM EDT [facility] RDW 17.3(H) 11.0 - 15.0 % 10/15/2024 6:51 AM EDT [facility] Platelets 34(L) 140 - 400 10E3/uL 10/15/2024 6:51 AM EDT [facility] Comment:Specimen checked for clots. None detected. MPV 8.7 7.5 - 11.5 fL 10/15/2024 6:51 AM EDT [facility] Whole Blood 10/15/2024 6:08 AM EDT 10/15/2024 6:17 AM EDT us Eileen Schroeder MD, PhD LAB BLOOD ORDERABLES Final Result Performing Organization Address City/State/[facility] Co de Phone Number [facility] [address] * PRA-HLA Ab Screen (Cytotoxic) (10/15/2024 6:08 AM EDT) [facility] The request and specimen(s) for this test have been received and transported to the [facility] at [address] [place] [address]. The [facility] will report results directly to the client. 10/15/2024 6:42 AM EDT [facility] Comment:The request and spec imen(s) for this test have been received and transported to the [facility] at [address] [place] [address]. The [facility] will report results directly to the client. Serum 10/15/2024 6:08 AM EDT 10/15/2024 6:42 AM EDT us Cosmo Pacheco MD LAB BLOOD ORDERABLES Final Resul t [facility] [address] [facility] [place] [address], [facility] * LEFT HEART CATH (10/14/2024 2:09 PM EDT) 10/14/2024 11:4 7 AM EDT Narrative [facility] - 10/14/2024 9:27 PM EDT *[facility]* Cardiac Car [place] [address] [address] CATHETERIZATION LAB STUDY Patient: Julien Gilbert Age: [...] manner. 3. Right radial artery access. A [id number] Glidesheath - Slender - .021 sheath was [...] + + !LV pressure s/d, ed !, dP/bo=9823nl Hg/s! + + + !Aortic pressure s/d (m)!106/58 (75) ! + + + ATTESTATION: Dr. Matta was present for the entire procedure. Dr. Jay Quan was the initial author of this report. Prepared and electronically signed by Irving Matta MD [id number] Procedure Note Irving Matta MD - 10/14/2024 *[facility]* Cardiac Car [facility] [address] [place] [address] CATHETERIZATION LAB STUDY Patient: Julien Gilbert Age: [...] manner. 3. Right radial artery access. A [id number] Glidesheath - Slender - .021sheath was advanced [...] complications. Contrast: Omnipaque 350 25ml (total dose). [id number] 125ml (wasted). Radiation: Fluoroscopy time: 15min. Total [...] + !LV pressure s/d, ed !112/1, 22, dP/qi=3762fn Hg/s! + + + !Aortic pressure s/d (m)!106/58 (75) ! + + + ATTESTATION: Dr. Matta was present for the entire procedure. Dr. Jay Quan wasthe initial author of this report. Prepared and electronically signed by Irving Matta MD [id number] [place] [id number] Final Result Performing Organization Address [facility] Co de Phone Number [facility] * Transfuse Fresh Frozen Plasma Transfusion Rate: Per dept routine (10/14/2024 2:08 PM EDT) us Eleazar Nguyễn MD NURSING TREATMENT ORDER PAL - BLOOD ADMIN Final Result Performing Organization Address [facility]/ZIP Co de Phone Number EXTERNAL * Transfuse Fresh Frozen Plasma Transfusion Rate: Per dept routine, 1 Units (10/14/2024 2:08 PM EDT) us Eleazar Nguyễn MD NURSING TREATMENT ORDER PAL - BLOOD ADMIN Final Result Performing Organization Address City/[facility]/ZIP Co de Phone Number EXTERNAL * Transfuse Platelets Transfusion Rate: Per dept routine (10/14/2024 12:43 PM EDT) us Eleazar Nguyễn MD NURSING TREATMENT ORDER PAL - BLOOD ADMIN Final Result Performing Organization Address [facility]/ZIP Co de Phone Number EXTERNAL * Transfuse Platelets Transfusion Rate: Per dept routine, 1 Units (10/14/2024 12:43 PM EDT) Eleazar Nguyễn MD NURSING TREATMENT ORDER PAL - BLOOD ADMIN Final Result EXTERNAL * Antibody Screen (10/14/2024 8:21 AM EDT) Antibody Screen Negative 10/14/2024 9:11 AM EDT [facility] Blood 10/14/2024 8:21 AM EDT 10/14/2024 8:33 AM EDT Narrative [facility] - 10/14/2024 9:26 AM EDT Testing performed by [facility] Transfusion Service us Eleazar Nguyễn MD BLOOD BANK TEST ORDERAB LES Final Result Performing Organization Address [facility] Co de Phone Number [facility] [address] [facility] * ABO/Rh (10/14/2024 8:21 AM EDT) ABO Grouping O 10/14/2024 8:55 AM EDT [facility] Rh Type Positive 10/14/2024 8:55 AM EDT [facility] Blood 10/14/2024 8:21 AM EDT 10/14/2024 8:33 AM EDT Eleazar Nguyễn MD BLOOD BANK TEST ORDERAB LES Final Result Performing Organization Address [facility] Co de Phone Number [facility] [address] [facility] * (ABNORMAL) Protime-INR (10/14/2024 2:53 AM EDT) Protime 23.8(H) 12.1 - 15.1 seconds 10/14/2024 4:34 AM EDT [facility] INR 2.1(H) 0.9 - 1.1 10/14/2024 4:34 AM EDT [facility] Comment: RECOMMENDED THERAPEUTIC RANGES USING INR : Stable oral anticoagulant therapy: 2.0 - 3.0 Mechanical prosthetic heart valve: 2.5 - 3.5 Recurrent acute myocardial infarction: 2.5 - 3.5 Plasma 10/14/2024 2:53 AM EDT 10/14/2024 4:16 AM EDT us Eileen Schroeder MD, PhD LAB BLOOD ORDERABLES Final Result Performing Organization Address [facility] Co de Phone Number [facility] [address] [facility] * (ABNORMAL) Hepatic Function Panel (10/14/2024 2:53 AM EDT) Total Bilirubin 7.2(H) 0.0 - 1.5 mg/dL 10/14/2024 4:45 AM EDT [facility] Bilirubin, Direct 3.86(H) 0.00 - 0.40 mg/dL 10/14/2024 4:45 AM EDT [facility] AST 41(H) 13 - 39 U/L 10/14/2024 4:45 AM EDT [facility] ALT 22 7 - 52 U/L 10/14/2024 4:45 AM EDT [facility] Alkaline Phosphatase 119 36 - 125 U/L 10/14/2024 4:45 AM EDT [facility] Total Protein 4.6(L) 6.4 - 8.9 g/dL 10/14/2024 4:45 AM EDT [facility] Albumin 3.3(L) 3.5 - 5.7 g/dL 10/14/2024 4:45 AM EDT [facility] Bilirubin, Indirect 3.34(H) 0.00 - 1.10 mg/dL 10/14/2024 4:45 AM EDT [facility] Plasma 10/14/2024 2:53 AM EDT 10/14/2024 4:16 AM EDT Eileen Schroeder MD, PhD LAB BLOOD ORDERABLES Final Result Performing Organization Address [facility]/ZIP Co de Phone Number [facility] [address] [facility] * Magnesium (10/14/2024 2:53 AM EDT) Magnesium 1.9 1.5 - 2.5 mg/dL 10/14/2024 4:45 AM EDT [facility] Plasma 10/14/2024 2:53 AM EDT 10/14/2024 4:16 AM EDT Eileen Schroeder MD, PhD LAB BLOOD ORDERABLES Final Result [facility] [address] [place] [address], [facility] * (ABNORMAL) Renal Function Panel w/EGFR (10/14/2024 2:53 AM EDT) Sodium 136 133 - 146 mmol/L 10/14/2024 4:45 AM EDT [facility] Potassium 3.5 3.5 - 5.3 mmol/L 10/14/2024 4:45 AM EDT [facility] Chloride 107 98 - 110 mmol/L 10/14/2024 4:45 AM EDT [facility] CO2 16(L) 21 - 33 mmol/L 10/14/2024 4:45 AM EDT [facility] Anion Gap 13 3 - 16 mmol/L 10/14/2024 4:45 AM EDT [facility] BUN 55(H) 7 - 25 mg/dL 10/14/2024 4:45 AM EDT [facility] Creatinine 3.01(H) 0.60 - 1.30 mg/dL 10/14/2024 4:45 AM EDT [facility] Glucose 95 70 - 100 mg/dL 10/14/2024 4:45 AM EDT [facility] Calcium 8.5(L) 8.6 - 10.3 mg/dL 10/14/2024 4:45 AM EDT [facility] Phosphorus 4.4 2.1 - 4.7 mg/dL 10/14/2024 4:45 AM EDT [facility] Albumin 3.3(L) 3.5 - 5.7 g/dL 10/14/2024 4:45 AM EDT [facility] Osmolality, Calculated 297 278 - 305 mOsm/kg 10/14/2024 4:45 AM EDT [facility] EGFR 26 10/14/2024 4:45 AM EDT [facility] Comment:As of 2021, the estimated [...] LAB BLOOD ORDERABLES Final Result [facility] [address] [address], [facility] * (ABNORMAL) CBC (10/14/2024 2:53 AM EDT) WBC 5.5 3.8 - 10.8 10E3/uL 10/14/2024 5:00 AM EDT [facility] RBC 2.09(L) 4.20 - 5.80 10E6/uL 10/14/2024 5:00 AM EDT [facility] Hemoglobin 7.6(L) 13.2 - 17.1 g/dL 10/14/2024 5:00 AM EDT [facility] Hematocrit 21.3(L) 38.5 - 50.0 % 10/14/2024 5:00 AM EDT [facility] MCV 101.7(H) 80.0 - 100.0 fL 10/14/2024 5:00 AM EDT [facility] MCH 36.3(H) 27.0 - 33.0 pg 10/14/2024 5:00 AM EDT [facility] MCHC 35.7 32.0 - 36.0 g/dL 10/14/2024 5:00 AM EDT [facility] RDW 17.6(H) 11.0 - 15.0 % 10/14/2024 5:00 AM EDT [facility] Platelets 35(L) 140 - 400 10E3/uL 10/14/2024 5:00 AM EDT [facility] Comment: Specimen checked for clots. None detected. Slide Reviewed for PLT Clumps. None Seen. MPV 8.5 7.5 - 11.5 fL 10/14/2024 5:00 AM EDT [facility] Whole Blood 10/14/2024 2:53 AM EDT 10/14/2024 4:17 AM EDT us Eileen Schroeder MD, PhD LAB BLOOD ORDERABLES Final Result Performing Organization Address City/State/[facility] Co de Phone Number [facility] [address] [place] [address], [facility] * Cardiac Cath Documents Scan [...] mL of GADOBUTROL 1 MMOL/ML INTRAVENOUS SYRINGE ([facility]) administered intravenously COMPARISON: CT 09/03/2024. Ultrasound [...] mL of GADOBUTROL 1 MMOL/ML INTRAVENOUS SYRINGE ([facility])administered intravenously COMPARISON: CT 09/03/2024. Ultrasound 10/07/2024. [...] BLOOD ORDERABLES Final Result Performing Organization Address City/State/[facility] Co de Phone Number [facility] [address] * (ABNORMAL) Hepatic Function Panel (10/13/2024 5:35 AM EDT) Total Bilirubin 6.5(H) 0.0 - 1.5 mg/dL 10/13/2024 6:30 AM EDT [facility] Bilirubin, Direct 3.53(H) 0.00 - 0.40 mg/dL 10/13/2024 6:30 AM EDT [facility] AST 42(H) 13 - 39 U/L 10/13/2024 6:30 AM EDT [facility] ALT 19 7 - 52 U/L 10/13/2024 6:30 AM EDT [facility] Alkaline Phosphatase 108 36 - 125 U/L 10/13/2024 6:30 AM EDT [facility] Total Protein 4.4(L) 6.4 - 8.9 g/dL 10/13/2024 6:30 AM EDT [facility] Albumin 3.1(L) 3.5 - 5.7 g/dL 10/13/2024 6:30 AM EDT [facility] Bilirubin, Indirect 2.97(H) 0.00 - 1.10 mg/dL 10/13/2024 6:30 AM EDT [facility] Plasma 10/13/2024 5:35 AM EDT 10/13/2024 5:52 AM EDT Eileen Schroeder MD, PhD LAB BLOOD ORDERABLES Final Result Performing Organization Address City/[facility]/ZIP Co de Phone Number [facility] [address] * Magnesium (10/13/2024 5:35 AM EDT) Magnesium 2.0 1.5 - 2.5 mg/dL 10/13/2024 6:30 AM EDT [facility] Plasma 10/13/2024 5:35 AM EDT 10/13/2024 5:52 AM EDT Eileen Schroeder MD, PhD LAB BLOOD ORDERABLES Final Result Performing Organization Address [facility] de Phone Number [facility] [address] * (ABNORMAL) Renal Function Panel w/EGFR (10/13/2024 5:35 AM EDT) Sodium 134 133 - 146 mmol/L 10/13/2024 6:30 AM EDT [facility] Potassium 3.7 3.5 - 5.3 mmol/L 10/13/2024 6:30 AM EDT [facility] Chloride 109 98 - 110 mmol/L 10/13/2024 6:30 AM EDT [facility] CO2 14(L) 21 - 33 mmol/L 10/13/2024 6:30 AM EDT [facility] Anion Gap 11 3 - 16 mmol/L 10/13/2024 6:30 AM EDT [facility] BUN 54(H) 7 - 25 mg/dL 10/13/2024 6:30 AM EDT [facility] Creatinine 2.99(H) 0.60 - 1.30 mg/dL 10/13/2024 6:30 AM EDT [facility] Glucose 116(H) 70 - 100 mg/dL 10/13/2024 6:30 AM EDT [facility] Calcium 8.3(L) 8.6 - 10.3 mg/dL 10/13/2024 6:30 AM EDT [facility] Phosphorus 4.5 2.1 - 4.7 mg/dL 10/13/2024 6:30 AM EDT [facility] Albumin 3.1(L) 3.5 - 5.7 g/dL 10/13/2024 6:30 AM EDT [facility] Osmolality, Calculated 294 278 - 305 mOsm/kg 10/13/2024 6:30 AM EDT [facility] EGFR 26 10/13/2024 6:30 AM EDT [facility] Comment:As of 2021, the estimated [...] LAB BLOOD ORDERABLES Final Result [facility] [address] [place] [address], [facility] * (ABNORMAL) CBC (10/13/2024 5:35 AM EDT) WBC 4.7 3.8 - 10.8 10E3/uL 10/13/2024 6:22 AM EDT [facility] RBC 2.06(L) 4.20 - 5.80 10E6/uL 10/13/2024 6:22 AM EDT [facility] Hemoglobin 7.4(L) 13.2 - 17.1 g/dL 10/13/2024 6:22 AM EDT [facility] Hematocrit 21.7(L) 38.5 - 50.0 % 10/13/2024 6:22 AM EDT [facility] MCV 105.4(H) 80.0 - 100.0 fL 10/13/2024 6:22 AM EDT [facility] MCH 35.9(H) 27.0 - 33.0 pg 10/13/2024 6:22 AM EDT [facility] MCHC 34.0 32.0 - 36.0 g/dL 10/13/2024 6:22 AM EDT [facility] RDW 18.5(H) 11.0 - 15.0 % 10/13/2024 6:22 AM EDT [facility] Platelets 35(L) 140 - 400 10E3/uL 10/13/2024 6:22 AM EDT [facility] Comment: CNV Specimen checked for clots. None detected. MPV 8.4 7.5 - 11.5 fL 10/13/2024 6:22 AM EDT [facility] Whole Blood 10/13/2024 5:35 AM EDT 10/13/2024 5:53 AM EDT us Eileen Schroeder MD, PhD LAB BLOOD ORDERABLES Final Result [facility] [address] * (ABNORMAL) Ammonia (10/13/2024 5:35 AM EDT) Ammonia 203(HH) 27 - 90 ug/dL 10/13/2024 7:16 AM EDT [facility] Comment: HEMOLYSIS EVIDENT. RESULTS MAY BE INFLUENCED. Critical Result [id number] Called to and read back by: KEY MELO RN at: 10/13/2024 07:15:55 by:NISREEN Plasma 10/13/2024 5:35 AM EDT 10/13/2024 6:19 AM EDT us Magenkaren Bangff DO LAB BLOOD ORDERABLES Final Resul t Performing Organization Address City/[facility]/ZIP Co de Phone Number [facility] [address] * CARISA Rhythm Strip - Scan (10/12/2024 10:30 PM EDT) us Scanning [employer] SCAN DOCS - NO RESULTS Final Res ult * (ABNORMAL) Protime-INR (10/12/2024 5:44 AM EDT) Protime 25.7(H) 12.1 - 15.1 seconds 10/12/2024 6:12 AM EDT [facility] INR 2.3(H) 0.9 - 1.1 10/12/2024 6:12 AM EDT [facility] Comment: RECOMMENDED THERAPEUTIC RANGES USING INR : Stable oral anticoagulant therapy: 2.0 - 3.0 Mechanical prosthetic heart valve: 2.5 - 3.5 Recurrent acute myocardial infarction: 2.5 - 3.5 Plasma 10/12/2024 5:44 AM EDT 10/12/2024 5:58 AM EDT Eileen Schroeder MD, PhD LAB BLOOD ORDERABLES Final Result Performing Organization Address [facility] Co de Phone Number [facility] [address] * (ABNORMAL) Hepatic Function Panel (10/12/2024 5:44 AM EDT) Total Bilirubin 6.5(H) 0.0 - 1.5 mg/dL 10/12/2024 6:29 AM EDT [facility] Bilirubin, Direct 3.64(H) 0.00 - 0.40 mg/dL 10/12/2024 6:29 AM EDT [facility] AST 40(H) 13 - 39 U/L 10/12/2024 6:29 AM EDT [facility] ALT 19 7 - 52 U/L 10/12/2024 6:29 AM EDT [facility] Alkaline Phosphatase 99 36 - 125 U/L 10/12/2024 6:29 AM EDT [facility] Total Protein 4.2(L) 6.4 - 8.9 g/dL 10/12/2024 6:29 AM EDT [facility] Albumin 3.1(L) 3.5 - 5.7 g/dL 10/12/2024 6:29 AM EDT [facility] Bilirubin, Indirect 2.86(H) 0.00 - 1.10 mg/dL 10/12/2024 6:29 AM EDT [facility] Plasma 10/12/2024 5:44 AM EDT 10/12/2024 5:58 AM EDT Eileen Schroeder MD, PhD LAB BLOOD ORDERABLES Final Result Performing Organization Address [facility] Co de Phone Number [facility] [address] * Magnesium (10/12/2024 5:44 AM EDT) Magnesium 1.9 1.5 - 2.5 mg/dL 10/12/2024 6:29 AM EDT [facility] Plasma 10/12/2024 5:44 AM EDT 10/12/2024 5:58 AM EDT Eileen Schroeder MD, PhD LAB BLOOD ORDERABLES Final Result Performing Organization Address [facility]/ZIP Co de Phone Number [facility] [address] * (ABNORMAL) Renal Function Panel w/EGFR (10/12/2024 5:44 AM EDT) Sodium 135 133 - 146 mmol/L 10/12/2024 6:29 AM EDT [facility] Potassium 3.7 3.5 - 5.3 mmol/L 10/12/2024 6:29 AM EDT [facility] Chloride 109 98 - 110 mmol/L 10/12/2024 6:29 AM EDT [facility] CO2 17(L) 21 - 33 mmol/L 10/12/2024 6:29 AM EDT [facility] Anion Gap 9 3 - 16 mmol/L 10/12/2024 6:29 AM EDT [facility] BUN 52(H) 7 - 25 mg/dL 10/12/2024 6:29 AM EDT [facility] Creatinine 2.94(H) 0.60 - 1.30 mg/dL 10/12/2024 6:29 AM EDT [facility] Glucose 121(H) 70 - 100 mg/dL 10/12/2024 6:29 AM EDT [facility] Calcium 8.5(L) 8.6 - 10.3 mg/dL 10/12/2024 6:29 AM EDT [facility] Phosphorus 4.6 2.1 - 4.7 mg/dL 10/12/2024 6:29 AM EDT [facility] Albumin 3.1(L) 3.5 - 5.7 g/dL 10/12/2024 6:29 AM EDT [facility] Osmolality, Calculated 295 278 - 305 mOsm/kg 10/12/2024 6:29 AM EDT [facility] EGFR 27 10/12/2024 6:29 AM EDT [facility] Comment:As of 2021, the estimated [...] LAB BLOOD ORDERABLES Final Result [facility] [address] [facility]. [place] [id number], [facility] * (ABNORMAL) CBC (10/12/2024 5:44 AM EDT) WBC 3.3(L) 3.8 - 10.8 10E3/uL 10/12/2024 7:06 AM EDT [facility] RBC 1.95(L) 4.20 - 5.80 10E6/uL 10/12/2024 7:06 AM EDT [facility] Hemoglobin 7.2(L) 13.2 - 17.1 g/dL 10/12/2024 7:06 AM EDT [facility] Hematocrit 19.7(L) 38.5 - 50.0 % 10/12/2024 7:06 AM EDT [facility] MCV 101.2(H) 80.0 - 100.0 fL 10/12/2024 7:06 AM EDT [facility] MCH 37.0(H) 27.0 - 33.0 pg 10/12/2024 7:06 AM EDT [facility] MCHC 36.5(H) 32.0 - 36.0 g/dL 10/12/2024 7:06 AM EDT [facility] RDW 17.6(H) 11.0 - 15.0 % 10/12/2024 7:06 AM EDT [facility] Platelets 30(L) 140 - 400 10E3/uL 10/12/2024 7:06 AM EDT [facility] Comment: Specimen checked for clots. None detected. Slide Reviewed for PLT Clumps. None Seen. Platelet Estimate Decreased 10/12/2024 7:06 AM EDT [facility] MPV 8.3 7.5 - 11.5 fL 10/12/2024 7:06 AM EDT [facility] Whole Blood 10/12/2024 5:44 AM EDT 10/12/2024 5:58 AM EDT Narrative [facility] - 10/12/2024 7:06 AM EDT Peripheral blood smear was scanned per review criteria approved by the laboratory medical affairs leader. us Eileen Schroeder MD, PhD LAB BLOOD ORDERABLES Final Result Performing Organization Address [facility]/ZIP Co de Phone Number [facility] [address] * CARISA Rhythm Strip - Scan (10/11/2024 10:04 PM EDT) us Scanning [employer] SCAN DOCS - NO RESULTS Final Res ult * (ABNORMAL) Protime-INR (10/11/2024 3:02 AM EDT) Protime 26.8(H) 12.1 - 15.1 seconds 10/11/2024 3:30 AM EDT [facility] INR 2.4(H) 0.9 - 1.1 10/11/2024 3:30 AM EDT [facility] Comment: RECOMMENDED THERAPEUTIC RANGES USING INR : Stable oral anticoagulant therapy: 2.0 - 3.0 Mechanical prosthetic heart valve: 2.5 - 3.5 Recurrent acute myocardial infarction: 2.5 - 3.5 Plasma 10/11/2024 3:02 AM EDT 10/11/2024 3:08 AM EDT Eileen Schroeder MD, PhD LAB BLOOD ORDERABLES Final Result Performing Organization Address [facility] Co de Phone Number [facility] [address] [place] [address] * (ABNORMAL) Hepatic Function Panel (10/11/2024 3:02 AM EDT) Total Bilirubin 7.3(H) 0.0 - 1.5 mg/dL 10/11/2024 3:38 AM EDT [facility] Bilirubin, Direct 3.85(H) 0.00 - 0.40 mg/dL 10/11/2024 3:38 AM EDT [facility] AST 39 13 - 39 U/L 10/11/2024 3:38 AM EDT [facility] ALT 20 7 - 52 U/L 10/11/2024 3:38 AM EDT [facility] Alkaline Phosphatase 88 36 - 125 U/L 10/11/2024 3:38 AM EDT [facility] Total Protein 4.5(L) 6.4 - 8.9 g/dL 10/11/2024 3:38 AM EDT [facility] Albumin 3.3(L) 3.5 - 5.7 g/dL 10/11/2024 3:38 AM EDT [facility] Bilirubin, Indirect 3.45(H) 0.00 - 1.10 mg/dL 10/11/2024 3:38 AM EDT [facility] Plasma 10/11/2024 3:02 AM EDT 10/11/2024 3:08 AM EDT Eileen Schroeder MD, PhD LAB BLOOD ORDERABLES Final Result Performing Organization Address [facility] Co de Phone Number [facility] [address] * Magnesium (10/11/2024 3:02 AM EDT) Magnesium 2.0 1.5 - 2.5 mg/dL 10/11/2024 3:38 AM EDT [facility] Plasma 10/11/2024 3:02 AM EDT 10/11/2024 3:08 AM EDT Eileen Schroeder MD, PhD LAB BLOOD ORDERABLES Final Result Performing Organization Address [facility]/ZIP Co de Phone Number [facility] [address] * (ABNORMAL) Renal Function Panel w/EGFR (10/11/2024 3:02 AM EDT) Sodium 134 133 - 146 mmol/L 10/11/2024 3:38 AM EDT [facility] Potassium 3.6 3.5 - 5.3 mmol/L 10/11/2024 3:38 AM EDT [facility] Chloride 108 98 - 110 mmol/L 10/11/2024 3:38 AM EDT [facility] CO2 16(L) 21 - 33 mmol/L 10/11/2024 3:38 AM EDT [facility] Anion Gap 10 3 - 16 mmol/L 10/11/2024 3:38 AM EDT [facility] BUN 49(H) 7 - 25 mg/dL 10/11/2024 3:38 AM EDT [facility] Creatinine 2.77(H) 0.60 - 1.30 mg/dL 10/11/2024 3:38 AM EDT [facility] Glucose 112(H) 70 - 100 mg/dL 10/11/2024 3:38 AM EDT [facility] Calcium 8.9 8.6 - 10.3 mg/dL 10/11/2024 3:38 AM EDT [facility] Phosphorus 3.5 2.1 - 4.7 mg/dL 10/11/2024 3:38 AM EDT [facility] Albumin 3.3(L) 3.5 - 5.7 g/dL 10/11/2024 3:38 AM EDT [facility] Osmolality, Calculated 292 278 - 305 mOsm/kg 10/11/2024 3:38 AM EDT [facility] EGFR 29 10/11/2024 3:38 AM EDT [facility] Comment:As of 2021, the estimated [...] LAB BLOOD ORDERABLES Final Result [facility] [address] * (ABNORMAL) CBC (10/11/2024 3:02 AM EDT) WBC 4.0 3.8 - 10.8 10E3/uL 10/11/2024 3:55 AM EDT [facility] RBC 2.11(L) 4.20 - 5.80 10E6/uL 10/11/2024 3:55 AM EDT [facility] Hemoglobin 7.7(L) 13.2 - 17.1 g/dL 10/11/2024 3:55 AM EDT [facility] Hematocrit 21.2(L) 38.5 - 50.0 % 10/11/2024 3:55 AM EDT [facility] MCV 100.5(H) 80.0 - 100.0 fL 10/11/2024 3:55 AM EDT [facility] MCH 36.4(H) 27.0 - 33.0 pg 10/11/2024 3:55 AM EDT [facility] MCHC 36.2(H) 32.0 - 36.0 g/dL 10/11/2024 3:55 AM EDT [facility] RDW 17.9(H) 11.0 - 15.0 % 10/11/2024 3:55 AM EDT [facility] Platelets 32(L) 140 - 400 10E3/uL 10/11/2024 3:55 AM EDT [facility] Comment: Specimen checked for clots. None detected. Slide Reviewed for PLT Clumps. None Seen. Platelet Estimate Decreased 10/11/2024 3:55 AM EDT [facility] MPV 8.1 7.5 - 11.5 fL 10/11/2024 3:55 AM EDT [facility] Whole Blood 10/11/2024 3:02 AM EDT 10/11/2024 3:08 AM EDT Narrative [facility] - 10/11/2024 3:55 AM EDT Peripheral blood smear was scanned per review criteria approved by the laboratory medical affairs leader. us Eileen Schroeder MD, PhD LAB BLOOD ORDERABLES Final Result [facility] [address] * Vancomycin, random (10/11/2024 3:02 AM EDT) Vancomycin Random 13.4 ug/mL 10/11/2024 3:37 AM EDT [facility] Comment:Reference range not established for this test. Plasma 10/11/2024 3:02 AM EDT 10/11/2024 3:08 AM EDT us Jodi Ortiz PharmD LAB BLOOD ORDERABLES Final Result [facility] [address] * IR Paracentesis incl imaging guide [...] Walh CNP at 10/10/2024 3:31 PM EDT Narrative [...] therapeutic paracentesis. Bakari Wahl CNP, Director Of [employer] Procedure and Findings: The procedure was performed [...] andtherapeutic paracentesis. Bakari Wahl CNP, Director Of Casino Marketing Procedure and Findings: The procedure was performed [...] Clear 10/10/2024 5:29 PM EDT [facility] Neutrophil %, Fluid 9 % 10/10/2024 5:29 PM EDT [facility] Lymphocytes %, Fluid 13 % 10/10/2024 5:29 PM EDT [facility] Mesothelial %, Fluid 6 % 10/10/2024 5:29 PM EDT [facility] Macrophage %, Fluid 72 % 10/10/2024 5:29 PM EDT [facility] RBC, Fluid 2,662 /uL 10/10/2024 4:41 PM EDT [facility] Total Nucleated Cells, Fluid 89 /uL 10/10/2024 4:41 PM EDT [facility] Comment:Total Nucleated Cell s represent WBCs and other nucleated cells in the fluid such as lining cells. Ascitic Fluid ABDOMEN / Unknown 1:51 PM EDT 10/10/2024 3:56 PM EDT us Gerri Peterson MD BODY FLUIDS AND STOOLS ORDERABL ES Final Result [facility] [address] [place] [address] [place] [address] * Body Fluid Culture plus Stain (10/10/2024 1:51 PM EDT) Gram Stain Result Cytospin Results: [facility] Gram Stain Result Polymorphonuclear Leukocytes Seen; [facility] Gram Stain Result No Organisms Seen; [facility] Culture Result No Growth After 5 Days [facility] Fluid ABDOMEN / Unknown 10/10/2024 1:51 PM EDT 10/10/2024 3:56 PM EDT us Gerri Peterson MD MICROBIOLOGY - GENERAL ORDERABL ES Final Result Performing Organization Address City/State/[facility] Co de Phone Number [facility] [address] * UPPER GI ENDOSCOPY (10/10/2024 11:48 AM EDT) 10/10/2024 11:4 8 AM EDT Narrative [facility] - 10/10/2024 12:34 PM EDT [id number] Procedure Date: 10/10/2024 11:48 AM Patient Name: Julien Gilbert Date of : 1985 Admit Type: Inpatient Age: 39 Gender: Male Note Status: Finalized Attending MD: Lino Soto MD, [id number] Procedure: Upper GI endoscopy Indications: Gastroesopahgeal variceal [...] verified by the physician, the nurse, the citrus peeler and the instrumentation and control technician in the pre-procedure area in the [...] to hypotension Procedure Code(s): --- Professional --- 35461, GC, Esophagogastroduodenoscopy, flexible, transoral; diagnostic, including collection of specimen(s) by brushing or washing, when performed (separate procedure) Diagnosis Code(s): --- Professional --- I85.00, Esophageal varices without bleeding K76.6, Portal hypertension K31.89, Other diseases of stomach and duodenum CPT copyright 2022 [employer]. All rights reserved. The codes documented in this report are preliminary and upon pile driving nozzleman review may be revised to meet current [...] In: 12:10:16 PM Scope Out: 12:17:[address] [place] [address], [id number] us Provider Not In System PROCEDURE/MINOR SURGICAL ORDERABLES Final Result [facility] * (ABNORMAL) Protime-INR (10/10/2024 5:23 AM EDT) Protime 23.9(H) 12.1 - 15.1 seconds 10/10/2024 6:11 AM EDT [facility] INR 2.1(H) 0.9 - 1.1 10/10/2024 6:11 AM EDT [facility] Comment: RECOMMENDED THERAPEUTIC RANGES USING INR : Stable oral anticoagulant therapy: 2.0 - 3.0 Mechanical prosthetic heart valve: 2.5 - 3.5 Recurrent acute myocardial infarction: 2.5 - 3.5 Plasma 10/10/2024 5:23 AM EDT 10/10/2024 5:50 AM EDT us Eileen Schroeder MD, PhD LAB BLOOD ORDERABLES Final Result Performing Organization Address [facility]/ZIP Co de Phone Number [facility] [address] [place] [address], [facility] * (ABNORMAL) Hepatic Function Panel (10/10/2024 5:23 AM EDT) Total Bilirubin 8.6(H) 0.0 - 1.5 mg/dL 10/10/2024 6:21 AM EDT [facility] Bilirubin, Direct 4.65(H) 0.00 - 0.40 mg/dL 10/10/2024 6:21 AM EDT [facility] AST 40(H) 13 - 39 U/L 10/10/2024 6:21 AM EDT [facility] ALT 22 7 - 52 U/L 10/10/2024 6:21 AM EDT [facility] Alkaline Phosphatase 118 36 - 125 U/L 10/10/2024 6:21 AM EDT [facility] Total Protein 4.6(L) 6.4 - 8.9 g/dL 10/10/2024 6:21 AM EDT [facility] Albumin 3.3(L) 3.5 - 5.7 g/dL 10/10/2024 6:21 AM EDT [facility] Bilirubin, Indirect 3.95(H) 0.00 - 1.10 mg/dL 10/10/2024 6:21 AM EDT [facility] Plasma 10/10/2024 5:23 AM EDT 10/10/2024 5:50 AM EDT us Eileen Schroeder MD, PhD LAB BLOOD ORDERABLES Final Result [facility] [address] [facility]. [address] * Magnesium (10/10/2024 5:23 AM EDT) Magnesium 1.9 1.5 - 2.5 mg/dL 10/10/2024 6:21 AM EDT [facility] Plasma 10/10/2024 5:23 AM EDT 10/10/2024 5:50 AM EDT us Eileen Schroeder MD, PhD LAB BLOOD ORDERABLES Final Result [facility] [address] * (ABNORMAL) Renal Function Panel w/EGFR (10/10/2024 5:23 AM EDT) Sodium 135 133 - 146 mmol/L 10/10/2024 6:21 AM EDT [facility] Potassium 3.6 3.5 - 5.3 mmol/L 10/10/2024 6:21 AM EDT [facility] Chloride 108 98 - 110 mmol/L 10/10/2024 6:21 AM EDT [facility] CO2 17(L) 21 - 33 mmol/L 10/10/2024 6:21 AM EDT [facility] Anion Gap 10 3 - 16 mmol/L 10/10/2024 6:21 AM EDT [facility] BUN 53(H) 7 - 25 mg/dL 10/10/2024 6:21 AM EDT [facility] Creatinine 2.85(H) 0.60 - 1.30 mg/dL 10/10/2024 6:21 AM EDT [facility] Glucose 113(H) 70 - 100 mg/dL 10/10/2024 6:21 AM EDT [facility] Calcium 9.0 8.6 - 10.3 mg/dL 10/10/2024 6:21 AM EDT [facility] Phosphorus 3.3 2.1 - 4.7 mg/dL 10/10/2024 6:21 AM EDT [facility] Albumin 3.3(L) 3.5 - 5.7 g/dL 10/10/2024 6:21 AM EDT [facility] Osmolality, Calculated 295 278 - 305 mOsm/kg 10/10/2024 6:21 AM EDT [facility] EGFR 28 10/10/2024 6:21 AM EDT [facility] Comment:As of 2021, the estimated [...] LAB BLOOD ORDERABLES Final Result [facility] [address] [place] [address], [facility] * (ABNORMAL) CBC (10/10/2024 5:23 AM EDT) WBC 5.1 3.8 - 10.8 10E3/uL 10/10/2024 6:14 AM EDT [facility] RBC 2.04(L) 4.20 - 5.80 10E6/uL 10/10/2024 6:14 AM EDT [facility] Hemoglobin 7.3(L) 13.2 - 17.1 g/dL 10/10/2024 6:14 AM EDT [facility] Hematocrit 20.6(L) 38.5 - 50.0 % 10/10/2024 6:14 AM EDT [facility] MCV 101.2(H) 80.0 - 100.0 fL 10/10/2024 6:14 AM EDT [facility] MCH 36.0(H) 27.0 - 33.0 pg 10/10/2024 6:14 AM EDT [facility] MCHC 35.5 32.0 - 36.0 g/dL 10/10/2024 6:14 AM EDT [facility] RDW 17.6(H) 11.0 - 15.0 % 10/10/2024 6:14 AM EDT [facility] Platelets 39(L) 140 - 400 10E3/uL 10/10/2024 6:14 AM EDT [facility] Comment: CNV Specimen checked for clots. None detected. MPV 9.8 7.5 - 11.5 fL 10/10/2024 6:14 AM EDT [facility] Whole Blood 10/10/2024 5:23 AM EDT 10/10/2024 5:51 AM EDT us Eileen Schroeder MD, PhD LAB BLOOD ORDERABLES Final Result [facility] [address] * Vancomycin, random (10/10/2024 5:23 AM EDT) Vancomycin Random 16.4 ug/mL 10/10/2024 6:22 AM EDT [facility] Comment:Reference range not established for this test. Plasma 10/10/2024 5:23 AM EDT 10/10/2024 5:51 AM EDT us Jodi FreireD LAB BLOOD ORDERABLES Final Result [facility] [address] * ECHO STRESS W/ CONTRAST (10/09/2024 4:37 PM EDT) Anatomical Region Laterality Modality Chest Ultrasound 10/09/2024 2:40 PM EDT Narrative 10/09/2024 6:45 PM EDT * [facility]* [address] [place] [address] [id number] Stress Echocardiogram Patient: Julien Gilbert Room: 8142 Height: 76in MR Number: [id number] : 1985 Weight: 262lb Account: [id number] Gender: M BP: 125 / 77 Study Date: 10/09/2024 Age: 39 BSA: 2.48m^2 Referring physician: Gerri Peterson Interpreting physician: Tonya Henriquez MD FELLOW Lisa Jha MD PERFORMING Tonya Henriquez MD 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 The infusion was [...] at baseline or with provocation, shows no kqich-ev-mhek atrial level shunt. - Pulmonary arteries: Systolic [...] at baseline or with provocation, shows no mkqvb-nx-ldhg atrial level shunt. Pulmonary artery: - Systolic [...] at baseline or with provocation, shows no erjsi-ye-vquk atrial level shunt. Pericardium: - There is [...] peak heart rate and blood pressure was 24848ld Hg/min. Stress testing did not produce any [...] TDI (N) 7.9 cm/sec >=7.0 E/e', med regige, TDI 13 --------- E', avg, TDI 9.4 [...] Reviewed and confirmed by Tonya Henriquez MD [id number] Procedure Note Tonya Henriquez MD - 10/09/2024 * [facility]* [address] [place] [address] Stress Echocardiogram Patient: Julien Gilbert Room: 8142 Height: 76in MR Number: [id number] : 1985 Weight: 262lb Account: [id number] Gender: M BP: 125 / 77 Study Date: 10/09/2024 Age: 39 BSA: 2.48m^2 Referring physician: Gerri Peterson Interpreting physician: Tonya Henriquez MD FELLOW Lisa Jha MD PERFORMING Tonya Henriquez MD ROAD SUPERVISOR OF ENGINES [employer] REFERRING Gerri Peterson ATTENDING Fouzia Rene ADMITTING Angie Blanchard Procedure:STRESS ECHO - PHARMACOLOGIC Order: Indications: Pre-Operative Clearance (Z01.818). PMH: EtOH Use Disorder. Risk factors: Hypertension. Dyslipidemia. Study data: Height: 76in. 193cm. Weight: 262lb. 118.8kg. The previousstudy was not available, so comparison was made to the report of 07/15/2024. Study status: Routine. Procedure[facility]. [...] was augmented by the addition of hand template inspector and leg lifts. The infusion was [...] at baseline or with provocation, shows no maszr-ch-rfaa atrial level shunt. - Pulmonary arteries: Systolic [...] study at baseline or with provocation, showsno pmrpz-qv-dyjh atrial level shunt. Pulmonary artery: - Systolic [...] at baseline or with provocation, shows no kyrrh-xp-bqqz atrial level shunt. Pericardium: - There is [...] heart rate). The maximal predicted heart rate [id number]. The target heart rate was 152bpm. The target heart rate was achieved.The heart rate response to stress is normal. There is a normal resting blood pressure with an appropriate response to stress. The rate-pressureproduct for the peak heart rate and blood pressure was 67977ic Hg/min. Stress testing did not produce any [...] Reviewed and confirmed by Tonya Henriquez MD [id number] us Gerri Peterson MD CV ECHO ORDERABLES Final Result * (ABNORMAL) Renal Function Panel w/EGFR, STAT (10/09/2024 1:05 PM EDT) Sodium 134 133 - 146 mmol/L 10/09/2024 2:10 PM EDT [facility] Potassium 3.7 3.5 - 5.3 mmol/L 10/09/2024 2:10 PM EDT [facility] Chloride 105 98 - 110 mmol/L 10/09/2024 2:10 PM EDT [facility] CO2 17(L) 21 - 33 mmol/L 10/09/2024 2:10 PM EDT [facility] Anion Gap 12 3 - 16 mmol/L 10/09/2024 2:10 PM EDT [facility] BUN 53(H) 7 - 25 mg/dL 10/09/2024 2:10 PM EDT [facility] Creatinine 2.89(H) 0.60 - 1.30 mg/dL 10/09/2024 2:10 PM EDT [facility] Glucose 108(H) 70 - 100 mg/dL 10/09/2024 2:10 PM EDT [facility] Calcium 9.3 8.6 - 10.3 mg/dL 10/09/2024 2:10 PM EDT [facility] Phosphorus 3.4 2.1 - 4.7 mg/dL 10/09/2024 2:10 PM EDT [facility] Albumin 3.6 3.5 - 5.7 g/dL 10/09/2024 2:10 PM EDT [facility] Osmolality, Calculated 293 278 - 305 mOsm/kg 10/09/2024 2:10 PM EDT [facility] EGFR 27 10/09/2024 2:10 PM EDT [facility] Comment:As of 2021, the estimated [...] LAB BLOOD ORDERABLES Final Result [facility] [address] * (ABNORMAL) Renal Function Panel w/EGFR, STAT (10/09/2024 8:14 AM EDT) Sodium 134 133 - 146 mmol/L 10/09/2024 8:47 AM EDT [facility] Potassium 3.4(L) 3.5 - 5.3 mmol/L 10/09/2024 8:47 AM EDT [facility] Chloride 107 98 - 110 mmol/L 10/09/2024 8:47 AM EDT [facility] CO2 17(L) 21 - 33 mmol/L 10/09/2024 8:47 AM EDT [facility] Anion Gap 10 3 - 16 mmol/L 10/09/2024 8:47 AM EDT [facility] BUN 54(H) 7 - 25 mg/dL 10/09/2024 8:47 AM EDT [facility] Creatinine 3.04(H) 0.60 - 1.30 mg/dL 10/09/2024 8:47 AM EDT [facility] Glucose 124(H) 70 - 100 mg/dL 10/09/2024 8:47 AM EDT [facility] Calcium 9.0 8.6 - 10.3 mg/dL 10/09/2024 8:47 AM EDT [facility] Phosphorus 3.5 2.1 - 4.7 mg/dL 10/09/2024 8:47 AM EDT [facility] Albumin 3.4(L) 3.5 - 5.7 g/dL 10/09/2024 8:47 AM EDT [facility] Osmolality, Calculated 294 278 - 305 mOsm/kg 10/09/2024 8:47 AM EDT [facility] EGFR 26 10/09/2024 8:47 AM EDT [facility] Comment:As of 2021, the estimated [...] BLOOD ORDERABLES Final Resu lt [facility] [address] [place] [address] * Prepare RBC, leukoreduced, 1 Units (10/09/2024 6:16 AM EDT) Product Code Y3651Z25 [facility] Unit Number [id number] [facility] Dispense Status Presumed Transfused_PT [facility] Blood Expiration Date [id number] [facility] Coding System [id number] [facility] Blood Bank Product us Eileen Schroeder [...] BLOOD ORDERABLES Final Result Performing Organization Address [facility]/ZIP Co de Phone Number [facility] [address] * (ABNORMAL) Hepatic Function Panel (10/09/2024 4:59 AM EDT) Total Bilirubin 9.0(H) 0.0 - 1.5 mg/dL 10/09/2024 6:42 AM EDT [facility] Bilirubin, Direct 4.60(H) 0.00 - 0.40 mg/dL 10/09/2024 6:42 AM EDT [facility] AST 38 13 - 39 U/L 10/09/2024 6:42 AM EDT [facility] [facility] ALT 18 7 - 52 U/L 10/09/2024 6:42 AM EDT [facility] Alkaline Phosphatase 122 36 - 125 U/L 10/09/2024 6:42 AM EDT [facility] Total Protein 4.8(L) 6.4 - 8.9 g/dL 10/09/2024 6:42 AM EDT [facility] Albumin 3.4(L) 3.5 - 5.7 g/dL 10/09/2024 6:42 AM EDT [facility] Bilirubin, Indirect 4.40(H) 0.00 - 1.10 mg/dL 10/09/2024 6:42 AM EDT [facility] Plasma 10/09/2024 4:59 AM EDT 10/09/2024 5:57 AM EDT Eileen Schroeder MD, PhD LAB BLOOD ORDERABLES Final Result Performing Organization Address City/[facility]/ZIP Co de Phone Number [facility] [address] * Magnesium (10/09/2024 4:59 AM EDT) Magnesium 1.8 1.5 - 2.5 mg/dL 10/09/2024 6:42 AM EDT [facility] Plasma 10/09/2024 4:59 AM EDT 10/09/2024 5:57 AM EDT Eileen Schroeder MD, PhD LAB BLOOD ORDERABLES Final Result Performing Organization Address [facility] Co de Phone Number [facility] [address] * (ABNORMAL) Renal Function Panel w/EGFR (10/09/2024 4:59 AM EDT) Sodium 134 133 - 146 mmol/L 10/09/2024 6:42 AM EDT [facility] Potassium 3.3(L) 3.5 - 5.3 mmol/L 10/09/2024 6:42 AM EDT [facility] Chloride 107 98 - 110 mmol/L 10/09/2024 6:42 AM EDT [facility] CO2 16(L) 21 - 33 mmol/L 10/09/2024 6:42 AM EDT [facility] Anion Gap 11 3 - 16 mmol/L 10/09/2024 6:42 AM EDT [facility] BUN 56(H) 7 - 25 mg/dL 10/09/2024 6:42 AM EDT [facility] Creatinine 2.98(H) 0.60 - 1.30 mg/dL 10/09/2024 6:42 AM EDT [facility] Glucose 112(H) 70 - 100 mg/dL 10/09/2024 6:42 AM EDT [facility] Calcium 9.0 8.6 - 10.3 mg/dL 10/09/2024 6:42 AM EDT [facility] Phosphorus 3.5 2.1 - 4.7 mg/dL 10/09/2024 6:42 AM EDT [facility] Albumin 3.4(L) 3.5 - 5.7 g/dL 10/09/2024 6:42 AM EDT [facility] Osmolality, Calculated 294 278 - 305 mOsm/kg 10/09/2024 6:42 AM EDT [facility] EGFR 26 10/09/2024 6:42 AM EDT [facility] Comment:As of 2021, the estimated [...] LAB BLOOD ORDERABLES Final Result [facility] [address] [facility] [place] [address], [facility] * (ABNORMAL) CBC (10/09/2024 4:59 AM EDT) WBC 4.6 3.8 - 10.8 10E3/uL 10/09/2024 6:21 AM EDT [facility] RBC 2.17(L) 4.20 - 5.80 10E6/uL 10/09/2024 6:21 AM EDT [facility] Hemoglobin 8.0(L) 13.2 - 17.1 g/dL 10/09/2024 6:21 AM EDT [facility] Hematocrit 21.8(L) 38.5 - 50.0 % 10/09/2024 6:21 AM EDT [facility] MCV 100.5(H) 80.0 - 100.0 fL 10/09/2024 6:21 AM EDT [facility] MCH 36.7(H) 27.0 - 33.0 pg 10/09/2024 6:21 AM EDT [facility] MCHC 36.5(H) 32.0 - 36.0 g/dL 10/09/2024 6:21 AM EDT [facility] RDW 18.1(H) 11.0 - 15.0 % 10/09/2024 6:21 AM EDT [facility] Platelets 36(L) 140 - 400 10E3/uL 10/09/2024 6:21 AM EDT [facility] Comment:Specimen checked for clots. None detected. MPV 8.3 7.5 - 11.5 fL 10/09/2024 6:21 AM EDT [facility] Whole Blood 10/09/2024 4:59 AM EDT 10/09/2024 5:56 AM EDT us Eileen Schroeder MD, PhD LAB BLOOD ORDERABLES Final Result [facility] [address] [place], [place] [address] * Renal Tx Recipient (10/09/2024 4:59 AM EDT) Renal Transplant Recipient The request and specimen(s) for this test have been received and transported to the [facility] at [address] [place] [address]. The [facility] will report results directly to the client. 10/09/2024 7:26 AM EDT [facility] Blood 10/09/2024 4:59 AM EDT 10/09/2024 7:26 AM EDT us Aaron Gonzalez MD LAB BLOOD ORDERABLES Final Resu lt [facility] [address] * Vancomycin, random (10/09/2024 4:59 AM EDT) Vancomycin Random 11.0 ug/mL 10/09/2024 6:33 AM EDT [facility] Comment:Reference range not established for this test. Plasma 10/09/2024 4:59 AM EDT 10/09/2024 5:56 AM EDT us Jodi Ortiz PharmD LAB BLOOD ORDERABLES Final Result Performing Organization Address [facility] Co de Phone Number [facility] [address] [facility]. [address] * (ABNORMAL) CBC (10/08/2024 5:52 PM EDT) WBC 5.6 3.8 - 10.8 10E3/uL 10/08/2024 6:52 PM EDT [facility] RBC 2.38(L) 4.20 - 5.80 10E6/uL 10/08/2024 6:52 PM EDT [facility] Hemoglobin 8.3(L) 13.2 - 17.1 g/dL 10/08/2024 6:52 PM EDT [facility] Hematocrit 24.6(L) 38.5 - 50.0 % 10/08/2024 6:52 PM EDT [facility] MCV 103.2(H) 80.0 - 100.0 fL 10/08/2024 6:52 PM EDT [facility] MCH 34.7(H) 27.0 - 33.0 pg 10/08/2024 6:52 PM EDT [facility] MCHC 33.6 32.0 - 36.0 g/dL 10/08/2024 6:52 PM EDT [facility] RDW 18.5(H) 11.0 - 15.0 % 10/08/2024 6:52 PM EDT [facility] Platelets 39(L) 140 - 400 10E3/uL 10/08/2024 6:52 PM EDT [facility] Comment:CNV MPV 8.1 7.5 - 11.5 fL 10/08/2024 6:52 PM EDT [facility] Whole Blood 10/08/2024 5:52 PM EDT 10/08/2024 6:45 PM EDT Eileen Schroeder MD, PhD LAB BLOOD ORDERABLES Final Result Performing Organization Address City/[facility]/ZIP Co de Phone Number [facility] [address] * Transfuse RBC Has consent been [...] BLOOD ADMIN Final Result Performing Organization Address City/[facility]/ZIP Co de Phone Number EXTERNAL * (ABNORMAL) MMR(IgG) Panel (Measles, Mumps, Rubella) (10/08/2024 10:25 AM EDT) Mumps IgG Positive 10/08/2024 11:39 AM EDT [facility] MUMPS IGG NUM 99.00(H) 0.0 - 8.9 U/mL 10/08/2024 11:39 AM EDT [facility] Rubella IgG Scr Positive 10/08/2024 11:40 AM EDT [facility] RUB NUM 4.15(H) 0.00 - 0.89 INDEX 10/08/2024 11:40 AM EDT [facility] Rubeola Ab, IgG Positive 10/08/2024 11:39 AM EDT [facility] RUB IGG NUM 273.00(H) 0.00 - 13.40 U/mL 10/08/2024 11:39 AM EDT [facility] Serum 10/08/2024 10:2 5 AM EDT 10/08/2024 10:49 AM EDT Narrative [facility] - 10/08/2024 11:40 AM EDT Presence of detectable measles virus IgG antibodies. A positive result generally indicates exposure to measles virus or previous vaccination. Presence of detectable mumps virus IgG antibodies. A positive result generally indicates past exposure to mumps virus or previous vaccination. Sample is considered positive for IgG antibodies to rubella virus. Result [facility] Gerri Peterson MD LAB BLOOD ORDERABLES Final Resu lt Performing Organization Address [facility] Co de Phone Number [facility] [address] [facility]. [address] * (ABNORMAL) Hemoglobin A1C (10/08/2024 10:25 AM EDT) [facility] Hemoglobin A1C 3.7(L) 4.0 - 5.6 % 10/09/2024 1:22 PM EDT [facility] Comment: Hemoglobin A1c Interpretation Guidelines: [...] ORDERABLES Final Resu lt Performing Organization Address [facility] de Phone Number [facility] [address] [facility]. [address] * (ABNORMAL) Vitamin D 25 Hydroxy (10/08/2024 10:25 AM EDT) Vit D, 25-Hydroxy 7.1(L) 30.0 - 100.0 ng/mL 10/08/2024 11:36 AM EDT [facility] Comment: Vitamin D deficiency has been defined by the [place] [employer] (IOM) and an Endocrine Society [...] BLOOD ORDERABLES Final Resu lt [facility] [address] [facility] [place] [address], [facility] * Iron Studies (Iron + [...] BLOOD ORDERABLES Final Resu lt [facility] [address] * (ABNORMAL) Ferritin (10/08/2024 10:25 AM EDT) Ferritin 706.9(H) 23.9 - 336.2 ng/mL 10/08/2024 11:35 AM EDT [facility] Serum 10/08/2024 10:2 5 AM EDT 10/08/2024 10:49 AM EDT Gerri Peterson MD LAB BLOOD ORDERABLES Final Resu lt Performing Organization Address [facility]/ZIP Co de Phone Number [facility] [address] * QuantiFERON TB2 Ag (10/08/2024 10:25 AM EDT) QuantiFERON TB2 Ag Value 0.07 10/10/2024 10:41 AM EDT [facility] Plasma 10/08/2024 10:2 5 AM EDT 10/08/2024 11:05 AM EDT Gerri Peterson MD LAB BLOOD ORDERABLES Final Resu lt Performing Organization Address [facility]/ZIP Co de Phone Number [facility] [address] * QuantiFERON TB1 Ag (10/08/2024 10:25 AM EDT) QuantiFERON TB1 Ag Value 0.06 10/10/2024 10:41 AM EDT [facility] Plasma 10/08/2024 10:2 5 AM EDT 10/08/2024 11:05 AM EDT Gerri Peterson MD LAB BLOOD ORDERABLES Final Resu lt [facility] [address] * QuantiFERON Nil (10/08/2024 10:25 AM EDT) QuantiFERON Nil 0.06 10:41 AM EDT [facility] Plasma 10/08/2024 10:2 5 AM EDT 10/08/2024 11:05 AM EDT Gerri Peterson MD LAB BLOOD ORDERABLES Final Resu lt [facility] [address] * QuantiFERON Mitogen (10/08/2024 10:25 AM EDT) QuantiFERON Interpretation Negative Negative 10/10/2024 10:41 AM EDT [facility] Comment:Negative result geovanny cates M. tuberculosis infection is NOT likely. Negative results do not preclude tuberculosis infection (especially in immunosuppressed patients). Negative results have a TB antigen minus Nil value less than 0.35 IU/mL. In cases with high suspicion of disease, retesting or additional testing with medical evaluation may be useful. QuantiFERON Mitogen 4.87 10/10 10:41 AM EDT [facility] Plasma 10/08/2024 10:2 5 AM EDT 10/08/2024 11:05 AM EDT Narrative [facility] - 10/10/2024 10:41 AM EDT [...] MD LAB BLOOD ORDERABLES Final Resu lt [facility] [address] * Reticulocyte Count, Auto (10/08/2024 7:41 AM EDT) Retic Ct Pct 1.35 0.50 - 2.00 % 10/08/2024 9:12 AM EDT [facility] Retic Ct Abs 26,190 25,000 - 90,000 /uL 10/08/2024 9:14 AM EDT [facility] Immature Retic Fract 0.37 0.09 - 0.56 10/08/2024 9:12 AM EDT [facility] Whole Blood 10/08/2024 7:41 AM EDT 10/08/2024 8:51 AM EDT us Angie Blanchard MD LAB BLOOD ORDERABLES Final Res ult Performing Organization Address [facility]/ZIP Co de Phone Number [facility] [address] [facility] * (ABNORMAL) Haptoglobin (10/08/2024 7:41 AM EDT) Pathologist [facility] Haptoglobin <30(L) 44 - 215 mg/dL 10/08/2024 8:53 AM EDT [facility] Serum 10/08/2024 7:41 AM EDT 10/08/2024 7:51 AM EDT us Eileen Schroeder MD, PhD LAB BLOOD ORDERABLES Final Result [facility] [address] * (ABNORMAL) CBC - Post Transfusion (10/08/2024 7:41 AM EDT) WBC 3.7(L) 3.8 - 10.8 10E3/uL 10/08/2024 8:34 AM EDT [facility] RBC 1.94(L) 4.20 - 5.80 10E6/uL 10/08/2024 8:34 AM EDT [facility] Hemoglobin 7.1(L) 13.2 - 17.1 g/dL 10/08/2024 8:34 AM EDT [facility] Hematocrit 20.0(L) 38.5 - 50.0 % 10/08/2024 8:34 AM EDT [facility] MCV 103.1(H) 80.0 - 100.0 fL 10/08/2024 8:34 AM EDT [facility] MCH 36.5(H) 27.0 - 33.0 pg 10/08/2024 8:34 AM EDT [facility] MCHC 35.4 32.0 - 36.0 g/dL 10/08/2024 8:34 AM EDT [facility] RDW 17.2(H) 11.0 - 15.0 % 10/08/2024 8:34 AM EDT [facility] Platelets 37(L) 140 - 400 10E3/uL 10/08/2024 8:34 AM EDT [facility] Comment: Specimen checked for clots. None detected. Slide Reviewed for PLT Clumps. None Seen. _Platelet Morphology Normal _Platelets Appear Decreased MPV 8.7 7.5 - 11.5 fL 10/08/2024 8:34 AM EDT [facility] Whole Blood 10/08/2024 7:41 AM EDT 10/08/2024 7:52 AM EDT Counts include 234 beds at the [facility] - 10/08/2024 8:34 AM EDT Post-transfusion Eileen Schroeder MD, PhD LAB BLOOD ORDERABLES Final Result [facility] [address] [place] [address], [facility] * Antibody Screen (10/08/2024 7:41 AM EDT) Antibody Screen Negative 10/08/2024 8:26 AM EDT [facility] Blood 10/08/2024 7:41 AM EDT 10/08/2024 7:57 AM EDT Counts include 234 beds at the [facility] - 10/08/2024 8:32 AM EDT Testing performed by [facility] Transfusion Service Eileen Schroeder MD, PhD BLOOD BANK TEST ORDER PAL Final Result Performing Organization Address City/[facility]/ZIP Co de Phone Number [facility] [address] * ABO/Rh (10/08/2024 7:41 AM EDT) ABO Grouping O 10/08/2024 8:14 AM EDT [facility] Rh Type Positive 10/08/2024 8:14 AM EDT [facility] Blood 10/08/2024 7:41 AM EDT 10/08/2024 7:57 AM EDT Eileen Schroeder MD, PhD BLOOD BANK TEST ORDER PAL Final Result Performing Organization Address [facility] Co de Phone Number [facility] [address] [facility] * (ABNORMAL) Lactate dehydrogenase (10/08/2024 5:36 AM EDT) LD 102(L) 110 - 270 U/L 10/08/2024 8:20 AM EDT [facility] Plasma 10/08/2024 5:36 AM EDT 10/08/2024 7:58 AM EDT Angie Blanchard MD LAB BLOOD ORDERABLES Final Res ult [facility] [address] * (ABNORMAL) Protime-INR (10/08/2024 5:36 AM EDT) Protime 26.9(H) 12.1 - 15.1 seconds 10/08/2024 6:11 AM EDT [facility] INR 2.4(H) 0.9 - 1.1 10/08/2024 6:11 AM EDT [facility] Comment: RECOMMENDED THERAPEUTIC RANGES USING INR : Stable oral anticoagulant therapy: 2.0 - 3.0 Mechanical prosthetic heart valve: 2.5 - 3.5 Recurrent acute myocardial infarction: 2.5 - 3.5 Plasma 10/08/2024 5:36 AM EDT 10/08/2024 5:52 AM EDT Eileen Schroeder MD, PhD LAB BLOOD ORDERABLES Final Result Performing Organization Address [facility] Co de Phone Number [facility] [address] * (ABNORMAL) Hepatic Function Panel (10/08/2024 5:36 AM EDT) Total Bilirubin 7.7(H) 0.0 - 1.5 mg/dL 10/08/2024 6:25 AM EDT [facility] Bilirubin, Direct 4.28(H) 0.00 - 0.40 mg/dL 10/08/2024 6:25 AM EDT [facility] AST 34 13 - 39 U/L 10/08/2024 6:25 AM EDT [facility] ALT 16 7 - 52 U/L 10/08/2024 6:25 AM EDT [facility] Alkaline Phosphatase 103 36 - 125 U/L 10/08/2024 6:25 AM EDT [facility] Total Protein 4.7(L) 6.4 - 8.9 g/dL 10/08/2024 6:25 AM EDT [facility] Albumin 3.5 3.5 - 5.7 g/dL 10/08/2024 6:25 AM EDT [facility] Bilirubin, Indirect 3.42(H) 0.00 - 1.10 mg/dL 10/08/2024 6:25 AM EDT [facility] Plasma 10/08/2024 5:36 AM EDT 10/08/2024 5:52 AM EDT Eileen Schroeder MD, PhD LAB BLOOD ORDERABLES Final Result Performing Organization Address City/[facility]/ZIP Co de Phone Number [facility] [address] [facility] * Magnesium (10/08/2024 5:36 AM EDT) Magnesium 1.9 1.5 - 2.5 mg/dL 10/08/2024 6:25 AM EDT [facility] Plasma 10/08/2024 5:36 AM EDT 10/08/2024 5:52 AM EDT us Eileen Schroeder MD, PhD LAB BLOOD ORDERABLES Final Result [facility] [address] * (ABNORMAL) Renal Function Panel w/EGFR (10/08/2024 5:36 AM EDT) Sodium 135 133 - 146 mmol/L 10/08/2024 6:25 AM EDT [facility] Potassium 3.2(L) 3.5 - 5.3 mmol/L 10/08/2024 6:25 AM EDT [facility] Chloride 106 98 - 110 mmol/L 10/08/2024 6:25 AM EDT [facility] CO2 17(L) 21 - 33 mmol/L 10/08/2024 6:25 AM EDT [facility] Anion Gap 12 3 - 16 mmol/L 10/08/2024 6:25 AM EDT [facility] BUN 61(H) 7 - 25 mg/dL 10/08/2024 6:25 AM EDT [facility] Creatinine 3.10(H) 0.60 - 1.30 mg/dL 10/08/2024 6:25 AM EDT [facility] Glucose 106(H) 70 - 100 mg/dL 10/08/2024 6:25 AM EDT [facility] Calcium 9.0 8.6 - 10.3 mg/dL 10/08/2024 6:25 AM EDT [facility] Phosphorus 4.0 2.1 - 4.7 mg/dL 10/08/2024 6:25 AM EDT [facility] Albumin 3.5 3.5 - 5.7 g/dL 10/08/2024 6:25 AM EDT [facility] Osmolality, Calculated 298 278 - 305 mOsm/kg 10/08/2024 6:25 AM EDT [facility] EGFR 25 10/08/2024 6:25 AM EDT [facility] Comment:As of 2021, the estimated [...] LAB BLOOD ORDERABLES Final Result [facility] [address] * (ABNORMAL) CBC (10/08/2024 5:36 AM EDT) WBC 3.2(L) 3.8 - 10.8 10E3/uL 10/08/2024 6:41 AM EDT [facility] RBC 1.86(L) 4.20 - 5.80 10E6/uL 10/08/2024 6:41 AM EDT [facility] Hemoglobin 6.9(L) 13.2 - 17.1 g/dL 10/08/2024 6:41 AM EDT [facility] Hematocrit 18.9(L) 38.5 - 50.0 % 10/08/2024 6:41 AM EDT [facility] MCV 101.6(H) 80.0 - 100.0 fL 10/08/2024 6:41 AM EDT [facility] MCH 36.9(H) 27.0 - 33.0 pg 10/08/2024 6:41 AM EDT [facility] MCHC 36.3(H) 32.0 - 36.0 g/dL 10/08/2024 6:41 AM EDT [facility] RDW 17.0(H) 11.0 - 15.0 % 10/08/2024 6:41 AM EDT [facility] Platelets 34(L) 140 - 400 10E3/uL 10/08/2024 6:41 AM EDT [facility] Comment: Specimen checked for clots. None detected. Slide Reviewed for PLT Clumps. None Seen. Platelet Estimate Decreased 10/08/2024 6:41 AM EDT [facility] MPV 8.4 7.5 - 11.5 fL 10/08/2024 6:41 AM EDT [facility] Whole Blood 10/08/2024 5:36 AM EDT 10/08/2024 5:53 AM EDT Narrative [facility] - 10/08/2024 6:41 AM EDT Peripheral blood smear was scanned per review criteria approved by the laboratory medical affairs leader. us Eileen Schroeder MD, PhD LAB BLOOD ORDERABLES Final Result Performing Organization Address City/[facility]/ZIP Co de Phone Number [facility] [address] * Vancomycin, random (10/08/2024 5:36 AM EDT) Vancomycin Random 16.0 ug/mL 10/08/2024 6:20 AM EDT [facility] Comment:Reference range not established for this test. Plasma 10/08/2024 5:36 AM EDT 10/08/2024 5:52 AM EDT us Jodi FreireD LAB BLOOD ORDERABLES Final Result Performing Organization Address [facility]/ZIP Co de Phone Number [facility] [address] * Urine Drug Confirmation (10/07/2024 10:50 PM EDT) BARBITURATES NOT PRESENT 10/09/2024 1:33 PM EDT [facility] BENZODIAZEPINES PRESENT 1:33 PM EDT [facility] Nordiazepam 3 ng/mL 10/09/2024 1:33 PM EDT [facility] Temazepam 6 ng/mL 10/09/2024 1:33 PM EDT [facility] CANNABINOIDS NOT PRESENT 10/09/2024 1:33 PM EDT [facility] ECONOMICS INSTRUCTOR STIMULANTS NOT PRESENT 1:33 PM EDT [facility] OPIOID ANALGESICS PRESENT 025 1:33 PM EDT [facility] Oxycodone 300 ng/mL 10/09/2024 1:33 PM EDT [facility] Oxymorphone 32 ng/mL 10/09/2024 1:33 PM EDT [facility] Tramadol >1000 ng/mL 10/09/2024 1:33 PM EDT [facility] OPIOID ANTAGONISTS NOT PRESENT 10/09 1:33 PM EDT [facility] SEDATIVES/MUSCLE RELAXANTS NOT PRESENT 10/09/2024 1:33 PM EDT [facility] TRICYCLIC ANTIDEPRESSANTS NOT PRESENT 10/09/2024 1:33 PM EDT [facility] Urine 10/07/2024 10:5 0 PM EDT 10/08/2024 3:00 AM EDT Gerri Peterson MD URINE ORDERABLES Final Result Performing Organization Address City/State/[facility] Co de Phone Number [facility] [address] * Giardia Cryptosporidium Antigens (10/07/2024 10:50 PM EDT) Cryptosporidium Ag Negative Negative 2024 7:59 AM EDT [facility] Giardia Ag Negative Negative 10/08/2024 7:59 AM EDT [facility] Comment: Detection of Giardia and Cryptosporidium antigen is more sensitive and specific than microscopy. Because antigens are shed continuously, repeat testing is rarely warranted. Feces 10/07/2024 10:5 0 PM EDT 10/08/2024 1:53 AM EDT Comment:F us Bisi Hernandez DO MICROBIOLOGY - GENERAL ORDERABLE S Final Result [facility] [address] [place] [address], [facility] * (ABNORMAL) Urine Drug Screen Reflex to Confirmation (10/07/2024 10:50 PM EDT) Amphetamine, 500 ng/mL Cutoff Negative Negative 10/08/2024 3:00 AM EDT [facility] Barbiturates UR, 300 ng/mL Cutoff Negative Negative 10/08/2024 3:00 AM EDT [facility] Buprenorphine, 5 ng/mL Cutoff Negative Negative 10/08/2024 3:00 AM EDT [facility] Benzodiazepines UR, 300 ng/mL Cutoff Negative Negative 10/08/2024 3:00 AM EDT [facility] Cocaine UR, 300 ng/mL Cutoff Negative Negative 10/08/2024 3:00 AM EDT [facility] Methadone, UR, 300 ng/mL Cutoff Negative Negative 10/08/2024 3:00 AM EDT [facility] Opiates UR, 300 ng/mL Cutoff Negative Negative 10/08/2024 3:00 AM EDT [facility] Oxycodone, 100 ng/mL Cutoff Presumptive Positive(A) Negative 10/08/2024 3:00 AM EDT [facility] Tricyclic Antidepressants, 300 ng/mL Cutoff Negative Negative 10/08/2024 3:00 AM EDT [facility] Comment:This test has been d eveloped and its performance characteristics determined by [facility] which is certified under [...] Negative 10/08/2024 3:00 AM EDT [facility] Comment:This is a screening method only and may be associated with false positive and/or false negative results. Results are not definitive without additional confirmatory testing by mass spectrometry. Fentanyl, 2 ng/mL Cutoff Negative Negative 10/08/2024 3:00 AM EDT [facility] Comment:This test has been d eveloped and its performance characteristics determined by [facility] which is certified under [...] 10/08/2024 2:08 AM EDT Narrative [facility] - 10/08/2024 3:00 AM EDT CONFIRMATION TO FOLLOW Gerri Peterson MD URINE ORDERABLES Final Result [facility] [address] [place] [address], [facility] * Comprehensive Drug Screen (10/07/2024 10:50 PM EDT) Creatinine, Ur CANCELED mg/dL 10/08/2024 7:09 AM EDT [facility] Comment:The released value 8 7.30 was canceled by YAQUELIN on 10/08/2024 07:09 BARBITURATES CANCELED [facility] Butalbital CANCELED [facility] Phenobarbital [facility]CELED [facility] Secobarbital CANCELED [facility] BENZODIAZEPINES CANCELED [facility] Alprazolam CANCELED [facility] Clonazepam CANCELED [facility] Diazepam CANCELED [facility] Alpha-Hydroxyalprazo mcknight CANCELED [facility] Lorazepam CANCELED [facility] Midazolam CANCELED [facility] Nordiazepam CANCELED [facility] Oxazepam CANCELED [facility] Temazepam CANCELED [facility] CANNABINOIDS CANCELED [facility] THC-COOH CANCELED [facility] ECONOMICS INSTRUCTOR STIMULANTS CANCELED [facility] Cocaine Metabolite(benzoylec gonine) CANCELED [facility] Amphetamine [facility]ELED [facility] Methamphetamine [facility] MDA CANCELED [facility] MDEA CANCELED [facility] Phencyclindine (PCP) CANCELED [facility] OPIOID ANALGESICS CANCELED [facility] Heroin Metabolite(6-RAMONA) CANCELED [facility] Codeine CANCELED [facility] Morphine CANCELED [facility] Hydrocodone [facility] Hydromorphone [facility] Oxycodone [facility]CELED [facility] Oxymorphone [facility] Meperidine [facility]ELED [facility] Normeperidine [facility] Methadone CANCELED [facility] Methadone Metabolite (EDDP) CANCELED [facility] Tramadol CANCELED [facility] Fentanyl CANCELED [facility] Norfentanyl [facility] Sufentanil CANCELED [facility] OPIOID ANTAGONISTS CANCELED [facility] Buprenorphine [facility] Norbuprenorphine CANCELED [facility] Naltrexone CANCELED [facility] Naloxone CANCELED [facility] SEDATIVES/MUSCLE RELAXANTS CANCELED [facility] Carisoprodol [facility]ELED [facility] Meprobamate [facility] TRICYCLIC ANTIDEPRESSANTS CANCELED [facility] Amitriptyline [facility] Clomipramine [facility] Desipramine [facility] Doxepin [facility]ELED [facility] Imipramine CANCELED [facility] Nortriptyline [facility] Urine Creatinine CANCELED mg/dL [facility] Nitrite CANCELED [facility] Glutaraldehyde [facility]ED [facility] pH CANCELED 10/08/2024 7:09 AM EDT [facility] Comment:The released value 5 .6 was canceled by YAQUELIN on 10/08/2024 07:09 Specific Allen CANCELED 10/09/19 7:09 AM EDT [facility] Comment:The released value 1 .009 was canceled by YAQUELIN on 10/08/2024 07:09 Bleach CANCELED [facility] Pyridinium Chlorochromate CANCELED [facility] Urine 10/07/2024 10:5 0 PM EDT 10/08/2024 2:07 AM EDT Narrative [facility] - 10/08/2024 7:09 AM EDT See accn [id number] Gerri Peterson MD URINE ORDERABLES Edited Result - Final [facility] [address] [facility]. [address] * Ova and Parasite Comprehensive w/ Giardia/Crypto (10/07/2024 10:50 PM EDT) O & P Method: Concentration and Trichrome Stain [facility] Results No Amoeba, Ova, Or Parasites Seen. -- O and P examination of additional specimens is recommended only for symptomatic patients, immunosuppressed patients or those with an appropriate travel history. [facility] Feces FECES / Unknown 10/07/2024 1 0:50 PM EDT 10/08/2024 1:53 AM EDT Comment:F Bisi Hernandez DO MICROBIOLOGY - GENERAL ORDERABLE S Final Result Performing Organization Address [facility]/ZIP Co de Phone Number [facility] [address] [facility]. [address] * Enteric Pathogen Panel (10/07/2024 10:50 PM EDT) Pathologist [facility] Campylobacter Group (C. ecoli, C. jejuni, C. trino) Not Detected Not Detected 10/08/2024 4:40 AM EDT [facility] Salmonella species Not Detected Not Detected 10/08/2024 4:40 AM EDT [facility] Shigella species Not Detected Not Detected 10/08/2024 4:40 AM EDT [facility] Vibrio Group (Vibrio cholerae, Vibrio parahaemolyticus) Not Detected Not Detected 10/08/2024 4:40 AM EDT [facility] Yersinia enterocolitica Not Detected Not Detected 10/08/2024 4:40 AM EDT [facility] Shiga toxin 1 Not Detected Not Detected 10/08/2024 4:40 AM EDT [facility] Shiga toxin 2 Not Detected Not Detected 10/08/2024 4:40 AM EDT [facility] Norovirus Not Detected Not Detected 10/08/2024 4:40 AM EDT [facility] Rotavirus Not Detected Not Detected 10/08/2024 4:40 AM EDT [facility] Comment: The Enteric Pathogen Panel [...] ORDERABLE S Final Result Performing Organization Address [facility] Co de Phone Number [facility] [address] * Hepatitis C Antibody (10/07/2024 6:38 PM EDT) HCV Ab Nonreactive Nonreactive 10/07/2024 7:56 PM EDT [facility] Comment:Health Department no tified in accordance with reportable infectious disease guidelines. Serum 10/07/2024 6:38 PM EDT 10/07/2024 6:52 PM EDT Narrative [facility] - 10/07/2024 7:56 PM EDT Antibodies to HCV not detected; does not exclude the possibility of exposure to HCV. Gerri Peterson MD LAB BLOOD ORDERABLES Final Resu lt Performing Organization Address City/[facility]/ZIP Co de Phone Number [facility] [address] [facility]. [address] * Hepatitis B Surface Antibody, Quantitati (10/07/2024 6:38 PM EDT) Hep B S Ab Nonreactive Nonreactive 10/07/2024 8:00 PM EDT [facility] HBSAB NUMBER 7.88 0.00 - 7.99 mIU/mL 10/07/2024 8:00 PM EDT [facility] Serum 10/07/2024 6:38 PM EDT 10/07/2024 6:52 PM EDT Counts include 234 beds at the [facility] - 10/07/2024 8:00 PM EDT Individual is considered not immune to HBV infection. Gerri Peterson MD LAB BLOOD ORDERABLES Final Resu lt Performing Organization Address [facility]/ZIP Co de Phone Number [facility] [address] [place] [address]. [address] * Hepatitis B surface antigen (10/07/2024 6:38 PM EDT) Hep B Surface Ag Nonreactive Nonreactive 10/07/2024 7:51 PM EDT [facility] Comment:Health Department no tified in accordance with reportable infectious disease guidelines. Serum 10/07/2024 6:38 PM EDT 10/07/2024 6:52 PM EDT Counts include 234 beds at the [facility] - 10/07/2024 7:51 PM EDT Specimen is considered negative for HBsAg. Gerri Peterson MD LAB BLOOD ORDERABLES Final Resu lt Performing Organization Address [facility] Co de Phone Number [facility] [address] [facility]. [address] * Hepatitis A Antibody Total (10/07/2024 6:38 PM EDT) Anti-HAV Total (IgG + IgM) Nonreactive 10/07/2024 7:53 PM EDT [facility] Serum 10/07/2024 6:38 PM EDT 10/07/2024 6:52 PM EDT Counts include 234 beds at the [facility] - 10/07/2024 7:53 PM EDT HAV antibodies not detected Gerri Peterson MD LAB BLOOD ORDERABLES Final Resu lt [facility] [address] [place] [address], [facility] * Hepatitis A IgM (10/07/2024 6:38 PM EDT) Hep A IgM Nonreactive Nonreactive 10/07/2024 7:46 PM EDT [facility] Serum 10/07/2024 6:38 PM EDT 10/07/2024 6:52 PM EDT Narrative [facility] - 10/07/2024 7:46 PM EDT IgM anti-HAV not detected. Does not exclude the possibility of exposure to or infection with HAV. Levels of IgM anti-HAV may be below the cut-off in early infection. us Gerri Peterson MD LAB BLOOD ORDERABLES Final Resu lt [facility] [address] * (ABNORMAL) Lipid Profile (10/07/2024 6:37 PM EDT) Non-HDL Cholesterol, Calculated See Note 0 - 129 mg/dL 10/07/2024 7:42 PM EDT [facility] Comment: Desirable: < 130 mg/dL Above Desirable: 130-159 mg/dL Borderline High: 160-189 mg/dL High: 190-219 mg/dL Very High: > 219 mg/dL Unable to calculate result either because contributing result(s) are outside of reportable range or are not available. Cholesterol, Total <25 0 - 200 mg/dL 10/07/2024 7:42 PM EDT [facility] Triglycerides 30 10 - 149 mg/dL 10/07/2024 7:42 PM EDT [facility] HDL 4(L) 60 - 92 mg/dL 10/07/2024 7:42 PM EDT [facility] Comment: LIPID PROFILE INTERPRETATION CHOLESTEROL,TOTAL(mg/dL) [...] Cholesterol See Note mg/dL 7:42 PM EDT [facility] Comment:Unable to calculate result either because contributing result(s) are outside of reportable range or are not available. Plasma 10/07/2024 6:37 PM EDT 10/07/2024 7:06 PM EDT Narrative [facility] - 10/07/2024 7:42 PM EDT LDL cholesterol calculated using the Friedewald equation. us Gerri Peterson MD LAB BLOOD ORDERABLES Final Resu lt [facility] [address] * (ABNORMAL) Alpha 1 Antitrypsin AAT Quant & Mutation (10/07/2024 6:37 PM EDT) A-1 Antitrypsin 99(L) 101 - 187 mg/dL 10/09/2024 4:28 AM EDT [facility] A-1 Antitrypsin Pheno Comment 10/10/2024 4:05 PM EDT [facility] Comment: A1A Phenotype is consistent with a heterozygous phenotype consisting of one M (normal) allele and one allele that cannot be identified at this time. The unknown allele is not consistent with Z (deficient), S (deficient), or F (deficient). MM Phenotype is considered to be normal , producing normal serum levels of zywdx-3-tfujzblq inhibitor and not associated with clinical disease. [...] 10/10/2024 4:08 PM EDT Narrative [facility] - 10/10/2024 4:08 PM EDT PERFORMED AT: [facility] [address] [id number] BASIN OPERATOR: Bassam Khalil, PhD PHONE: [phone] PERFORMED AT: [facility] [address] [id number] BASIN OPERATOR: Mandy Abdul MD PHONE: [phone] us Gerri Peterson MD LAB BLOOD ORDERABLES Final Resu lt Performing Organization Address [facility] Co de Phone Number [address] * (ABNORMAL) CMV IgG Antibody (10/07/2024 6:37 PM EDT) CMV IgG Positive(A ) Negative 10/07/2024 8:26 PM EDT [facility] CMV IGG NUM 8.40(H) 0.00 - 0.59 U/mL 10/07/2024 8:26 PM EDT [facility] Serum 10/07/2024 6:37 PM EDT 10/07/2024 6:50 PM EDT Gerri Peterson MD LAB BLOOD ORDERABLES Final Resu lt Performing Organization Address City/[facility]/ZIP Co de Phone Number [facility] [address] * HIV-1 and HIV-2 Antibodies w Reflex (10/07/2024 6:37 PM EDT) Pathologist [facility] HIV 1+2 AB/AGN Nonreactive Nonreactive 10/07/2024 7:54 PM EDT [facility] Serum 10/07/2024 6:37 PM EDT 10/07/2024 7:06 PM EDT Narrative [facility] - 10/07/2024 7:54 PM EDT \HIVRNR Gerri Peterson MD LAB BLOOD ORDERABLES Final Resu lt [facility] [address] [place] [address]. [address] * TSH (Thyroid Stimulating Hormone) (10/07/2024 6:37 PM EDT) Pathologist [facility] TSH 0.81 0.45 - 4.12 uIU/mL 10/07/2024 8:17 PM EDT [facility] Serum 10/07/2024 6:37 PM EDT 10/07/2024 6:50 PM EDT Gerri Peterson MD LAB BLOOD ORDERABLES Final Resu lt [facility] [address] [place] [address]. [address] * Katie-Watkins virus early antigen antibody, IgG (10/07/2024 6:37 PM EDT) Pathologist [facility] EBV Early Antigen Ab, IgG <9.0 0.0 - 8.9 U/mL 10/09/2024 2:16 PM EDT [facility] Comment: Negative < 9.0 Equivocal 9.0 - 10.9 Positive >10.9 Serum Frozen 10/07/2024 6:37 PM EDT 10/09/2024 3:07 PM EDT Narrative [facility] - 10/09/2024 3:07 PM EDT PERFORMED AT: [facility] [id number] [place], [place] [id number] BASIN OPERATOR: Bassam Khalil, PhD PHONE: [phone] Gerri Peterson MD LAB BLOOD ORDERABLES Final Resu lt Performing Organization Address [facility] Co de Phone Number [facility] [address] [place] [address], [facility] * (ABNORMAL) Varicella zoster antibody, IgG (10/07/2024 6:37 PM EDT) Varicella IgG Positive( A) Negative S/CO 10/07/2024 8:34 PM EDT [facility] Comment:Result indicates the presence of [...] S/CO 10/07/2024 8:34 PM EDT [facility] Serum 10/07/2024 6:37 PM EDT 10/07/2024 6:50 PM EDT Gerri Peterson MD LAB BLOOD ORDERABLES Final Resu lt Performing Organization Address [facility] Co de Phone Number [facility] [address] [place] [address], [facility] * Toxoplasma gondii antibody, IgG (10/07/2024 6:37 PM EDT) Toxoplasma Gondii IgG <3.0 0.0 - 7.1 IU/mL 10/09/2024 7:53 AM EDT [facility] Comment: Negative <7.2 Equivocal 7.2 - 8.7 Positive >8.7 Serum 10/07/2024 6:37 PM EDT 10/09/2024 8:07 AM EDT Narrative [facility] - 10/09/2024 8:07 AM EDT PERFORMED AT: [facility] [address] [place], [place] [id number] BASIN OPERATOR: Bassam Khalil, PhD PHONE: [phone] Gerri Peterson MD LAB BLOOD ORDERABLES Final Resu lt Performing Organization Address City/[facility] Co de Phone Number [facility] [address] [facility]. [address] * Syphilis Screening (Trepia) (10/07/2024 6:37 PM EDT) Treponema Pallidum Negative Negative 10/07/2024 8:27 PM EDT [facility] Comment: No serological evidence of infection with Treponema pallidum (incubating or early primary syphilis cannot be excluded). Serum 10/07/2024 6:37 PM EDT 10/07/2024 6:50 PM EDT Gerri Peterson MD LAB BLOOD ORDERABLES Final Resu lt Performing Organization Address [facility] Co de Phone Number [facility] [address] [facility]. [address] * Strongyloides Ab (10/07/2024 6:37 PM EDT) Strongyloides Ab Negative Negative 10/11/19 11:51 AM EDT [facility] Serum 10/07/2024 6:37 PM EDT 10/10/2024 12:07 PM EDT Narrative [facility] - 10/10/2024 12:07 PM EDT PERFORMED AT: [facility] [id number] BASIN OPERATOR: Mandy Abdul MD PHONE: [phone] Gerri Peterson MD LAB BLOOD ORDERABLES Final Resu lt Performing Organization Address City/[facility] Co de Phone Number [facility] [address] [facility]. [address] * Phosphatidylethanol Confirmation, B (10/07/2024 6:37 PM EDT) PETH 16:0/18.1 (POPETH) <10 Cutoff: 10 ng/mL 10/10/2024 10:42 AM EDT [facility] Comment: Phosphatidylethanol (PEth) homologues result [...] ng/mL 10/10/2024 10:42 AM EDT [facility] Comment: PEth 16:0/18:2 (PLPEth) Reference ranges are not well established PEth Interpretation Negative. 10/10 10:42 AM EDT [facility] Comment: ADDITIONAL INFORMATION This report is intended for use in clinical monitoring and management of patients. It is not intended for use in employment-related testing. This test was developed and its performance characteristics determined by [facility] in a manner consistent with CLIA requirements. This test has not been cleared or approved by the U.S. Food and Drug Administration. Test Performed by: [facility] [place] [id number] [place] Clerk: Kathy Ortiz Ph.D.; CLIA# [id number] Whole Blood 10/07/2024 6:37 PM EDT 10/10/2024 10:42 AM EDT us Gerri Peterson MD LAB BLOOD ORDERABLES Final Resu lt [facility] [address] [place] [address], [facility] * (ABNORMAL) MMR(IgG) Panel (Measles, Mumps, Rubella) (10/07/2024 6:37 PM EDT) Mumps IgG Positive 10/07/2024 8:26 PM EDT [facility] MUMPS IGG NUM 77.80(H) 0.0 - 8.9 U/mL 10/07/2024 8:26 PM EDT [facility] Rubella IgG Scr Positive 10/07/2024 8:28 PM EDT [facility] RUB NUM 3.04(H) 0.00 - 0.89 INDEX 10/07/2024 8:28 PM EDT [facility] Rubeola Ab, IgG Positive 10/07/2024 8:26 PM EDT [facility] RUB IGG NUM 192.00(H) 0.00 - 13.40 U/mL 10/07/2024 8:26 PM EDT [facility] Serum 10/07/2024 6:37 PM EDT 10/07/2024 6:50 PM EDT Narrative [facility] - 10/07/2024 8:28 PM EDT Presence of detectable measles virus IgG antibodies. A positive result generally indicates exposure to measles virus or previous vaccination. Presence of detectable mumps virus IgG antibodies. A positive result generally indicates past exposure to mumps virus or previous vaccination. Sample is considered positive for IgG antibodies to rubella virus. Result [facility] Gerri Peterson MD LAB BLOOD ORDERABLES Final Resu lt Performing Organization Address [facility]/State/ZIP Co de Phone Number [facility] [address] * IgA (10/07/2024 6:37 PM EDT) IgA 227.0 70.0 - 400.0 mg/dL 10/08/2024 11:07 AM EDT [facility] Comment:Please interpret the se findings in conjunction with clinical findings, protein electrophoresis, and immunotyping/immunofixation results. Serum 10/07/2024 6:37 PM EDT 10/07/2024 6:50 PM EDT Gerri Peterson MD LAB BLOOD ORDERABLES Final Resu lt [facility] [address] [facility]. [address] * Ethanol, Serum (10/07/2024 6:37 PM EDT) Ethanol <10 0 - 10 mg/dL 10/07/2024 8:36 PM EDT [facility] Serum 10/07/2024 6:37 PM EDT 10/07/2024 6:50 PM EDT Gerri Peterson MD LAB BLOOD ORDERABLES Final Resu lt Performing Organization Address [facility]/ZIP Co de Phone Number [facility] [address] [place] [address]. [address] * ABO/Rh - Second (10/07/2024 6:37 PM EDT) ABO Grouping O 10/07/2024 7:16 PM EDT [facility] Rh Type Positive 10/07/2024 7:16 PM EDT [facility] Blood 10/07/2024 6:37 PM EDT 10/07/2024 6:56 PM EDT Narrative [facility] - 10/07/2024 7:18 PM EDT This is not a duplicate order. It is required that ABO be drawn twice for LIVER TRANSPLANT Gerri Peterson MD BLOOD BANK TEST ORDERABLES Denisse l Result Performing Organization Address [facility]/ZIP Co de Phone Number [facility] [address] [facility]. [address] * ABO/Rh- Initial (10/07/2024 6:37 PM EDT) ABO Grouping O 10/07/2024 7:59 PM EDT [facility] Rh Type Positive 10/07/2024 7:59 PM EDT [facility] Blood 10/07/2024 6:37 PM EDT 10/07/2024 7:25 PM EDT us Gerri Peterson MD BLOOD BANK TEST ORDERABLES Denisse l Result [facility] [address] [place] [address], [facility] * X-ray Mandible minimum 4-views [...] EXAM: US ABDOMEN COMPLETE EXAM: US DUPLEX [id number] COMPLETE INDICATION: elevated bilirubin COMPARISON: Ultrasound and [...] EXAM: US ABDOMEN COMPLETE EXAM: US DUPLEX [id number] COMPLETE INDICATION: elevated bilirubin COMPARISON: Ultrasound and [...] 4:26 PM EDT us Bisi Hernandez DO [facility] US ORDERABLES Final Result * US Duplex Mng-Dft-Agjambv Comp (10/07/2024 3:48 PM EDT) Anatomical Region [...] EXAM: US ABDOMEN COMPLETE EXAM: US DUPLEX [id number] COMPLETE INDICATION: elevated bilirubin COMPARISON: Ultrasound and [...] EXAM: US ABDOMEN COMPLETE EXAM: US DUPLEX [id number] COMPLETE INDICATION: elevated bilirubin COMPARISON: Ultrasound and [...] BLOOD ORDERABLES Final Result [facility] [address] * (ABNORMAL) Hepatic Function Panel (10/07/2024 6:00 AM EDT) Total Bilirubin 9.7(H) 0.0 - 1.5 mg/dL 10/07/2024 7:10 AM EDT [facility] Bilirubin, Direct 5.21(H) 0.00 - 0.40 mg/dL 10/07/2024 7:10 AM EDT [facility] AST 39 13 - 39 U/L 10/07/2024 7:10 AM EDT [facility] ALT 18 7 - 52 U/L 10/07/2024 7:10 AM EDT [facility] Alkaline Phosphatase 98 36 - 125 U/L 10/07/2024 7:10 AM EDT [facility] Total Protein 4.8(L) 6.4 - 8.9 g/dL 10/07/2024 7:10 AM EDT [facility] Albumin 3.6 3.5 - 5.7 g/dL 10/07/2024 7:10 AM EDT [facility] Bilirubin, Indirect 4.49(H) 0.00 - 1.10 mg/dL 10/07/2024 7:10 AM EDT [facility] Plasma 10/07/2024 6:00 AM EDT 10/07/2024 6:39 AM EDT us Eileen Schroeder MD, PhD LAB BLOOD ORDERABLES Final Result Performing Organization Address [facility]/ZIP Co de Phone Number [facility] [address] * Magnesium (10/07/2024 6:00 AM EDT) Magnesium 1.7 1.5 - 2.5 mg/dL 10/07/2024 7:10 AM EDT [facility] Plasma 10/07/2024 6:00 AM EDT 10/07/2024 6:39 AM EDT us Eileen Schroeder MD, PhD LAB BLOOD ORDERABLES Final Result Performing Organization Address [facility] Co la Phone Number [facility] [address] * (ABNORMAL) Renal Function Panel w/EGFR (10/07/2024 6:00 AM EDT) Sodium 132(L) 133 - 146 mmol/L 10/07/2024 7:10 AM EDT [facility] Potassium 3.9 3.5 - 5.3 mmol/L 10/07/2024 7:10 AM EDT [facility] Chloride 103 98 - 110 mmol/L 10/07/2024 7:10 AM EDT [facility] CO2 19(L) 21 - 33 mmol/L 10/07/2024 7:10 AM EDT [facility] Anion Gap 10 3 - 16 mmol/L 10/07/2024 7:10 AM EDT [facility] BUN 64(H) 7 - 25 mg/dL 10/07/2024 7:10 AM EDT [facility] Creatinine 3.38(H) 0.60 - 1.30 mg/dL 10/07/2024 7:10 AM EDT [facility] Glucose 111(H) 70 - 100 mg/dL 10/07/2024 7:10 AM EDT [facility] Calcium 9.1 8.6 - 10.3 mg/dL 10/07/2024 7:10 AM EDT [facility] Phosphorus 4.2 2.1 - 4.7 mg/dL 10/07/2024 7:10 AM EDT [facility] Albumin 3.6 3.5 - 5.7 g/dL 10/07/2024 7:10 AM EDT [facility] Osmolality, Calculated 293 278 - 305 mOsm/kg 10/07/2024 7:10 AM EDT [facility] EGFR 22 10/07/2024 7:10 AM EDT [facility] Comment:As of 2021, the estimated [...] LAB BLOOD ORDERABLES Final Result [facility] [address] * (ABNORMAL) CBC (10/07/2024 6:00 AM EDT) WBC 3.3(L) 3.8 - 10.8 10E3/uL 10/07/2024 7:55 AM EDT [facility] RBC 2.06(L) 4.20 - 5.80 10E6/uL 10/07/2024 7:55 AM EDT [facility] Hemoglobin 7.4(L) 13.2 - 17.1 g/dL 10/07/2024 7:55 AM EDT [facility] Hematocrit 21.5(L) 38.5 - 50.0 % 10/07/2024 7:55 AM EDT [facility] MCV 104.1(H) 80.0 - 100.0 fL 10/07/2024 7:55 AM EDT [facility] MCH 35.8(H) 27.0 - 33.0 pg 10/07/2024 7:55 AM EDT [facility] MCHC 34.4 32.0 - 36.0 g/dL 10/07/2024 7:55 AM EDT [facility] RDW 17.5(H) 11.0 - 15.0 % 10/07/2024 7:55 AM EDT [facility] Platelets 35(L) 140 - 400 10E3/uL 10/07/2024 7:55 AM EDT [facility] Comment: Specimen checked for clots. None detected. Slide Reviewed for PLT Clumps. None Seen. _Platelet Morphology Normal _Platelets Appear Decreased Platelet Estimate Decreased 10/07/2024 7:55 AM EDT [facility] MPV 8.0 7.5 - 11.5 fL 10/07/2024 7:55 AM EDT [facility] Whole Blood 10/07/2024 6:00 AM EDT 10/07/2024 6:40 AM EDT Narrative [facility] - 10/07/2024 7:55 AM EDT Peripheral blood smear was scanned per review criteria approved by the laboratory medical affairs leader. us Eileen Schroeder MD, PhD LAB BLOOD ORDERABLES Final Result [facility] [address] [place] [address], [facility] * AFP Tumor Marker (10/07/2024 6:00 AM EDT) AFP-Tumor Marker 2.0 0.0 - 9.0 ng/mL 10/07/2024 7:11 AM EDT [facility] Serum 10/07/2024 6:00 AM EDT 10/07/2024 6:39 AM EDT Narrative [facility] - 10/07/2024 7:11 AM EDT The testing method for AFP is a chemiluminescent immunoassay manufactured by [employer] Concentrations of AFP obtained by different assay methods or kits may vary and cannot be used interchangeably. AFP results cannot be interpreted as absolute evidence of the presence or absence of malignant disease. Shila Rivera MD LAB BLOOD ORDERABLES Final Resul t Performing Organization Address City/[facility]/ZIP Co de Phone Number [facility] [address] [facility]. [address] * Vancomycin, random (10/07/2024 6:00 AM EDT) Vancomycin Random 21.1 ug/mL 10/07/2024 7:08 AM EDT [facility] Comment:Reference range not established for this test. Plasma 10/07/2024 6:00 AM EDT 10/07/2024 6:39 AM EDT Kiet Gardiner PharmD LAB BLOOD ORDERABLES Final Re sult Performing Organization Address [facility] Co de Phone Number [facility] [address] [facility]. [address] * Osmolality (10/06/2024 2:50 PM EDT) Osmolality, Measured 304 278 - 305 mOsm/kg 10/06/2024 3:49 PM EDT [facility] Serum 10/06/2024 2:50 PM EDT 10/06/2024 2:56 PM EDT Chari Vanegas MD LAB BLOOD ORDERABLES Final Resul t Performing Organization Address [facility] Co de Phone Number [facility] [address] [facility]. [address] * CT Head WO contrast (10/06/2024 [...] mmol/L 10/06/2024 1:56 PM EDT [facility] Comment:Reference range not established for this test. Urine 10/06/2024 1:25 PM EDT 10/06/2024 1:32 PM EDT us Chari Vanegas MD URINE ORDERABLES Final Result Performing Organization Address [facility] Co de Phone Number [facility] [address] [facility]. [address] * Potassium, urine, random (10/06/2024 1:25 PM EDT) Potassium Urine Random 50.0 mmol/L 10/06/2024 1:56 PM EDT [facility] Comment:Reference range not established for this test. Urine 10/06/2024 1:25 PM EDT 10/06/2024 1:32 PM EDT us Chari Vanegas MD URINE ORDERABLES Final Result Performing Organization Address [facility] Co de Phone Number [facility] [address] [facility]. [address] * Sodium, urine, random (10/06/2024 1:25 PM EDT) Sodium, Ur <10 mmol/L 10/06/2024 1:56 PM EDT [facility] Comment:Reference range not established for this test. Urine 10/06/2024 1:25 PM EDT 10/06/2024 1:32 PM EDT us Chari Vanegas MD URINE ORDERABLES Final Result Performing Organization Address [facility] Co de Phone Number [facility] [address] [facility] * Creatinine, Urine, Random (10/06/2024 1:25 PM EDT) Creatinine, Urine 87.40 mg/dL 10/06/2024 1:56 PM EDT [facility] Comment:Reference range not established for this test. Urine 10/06/2024 1:25 PM EDT 10/06/2024 1:32 PM EDT us Chari Vanegas MD URINE ORDERABLES Final Result [facility] [address] [facility] * Osmolality, Urine (10/06/2024 1:25 PM EDT) Osmolality, Ur 386 50 - 1,200 mOsm/kg 10/06/2024 1:55 PM EDT [facility] Urine 10/06/2024 1:25 PM EDT 10/06/2024 1:32 PM EDT us Chari Vanegas MD URINE ORDERABLES Final Result Performing Organization Address [facility] Co de Phone Number [facility] [address] [facility] * Urine Drug Confirmation (10/06/2024 11:51 [...] PRESENT 10/09/2024 3:23 PM EDT [facility] ECONOMICS INSTRUCTOR STIMULANTS NOT PRESENT 3:23 PM EDT [facility] OPIOID ANALGESICS PRESENT 025 3:23 PM EDT [facility] Oxycodone 329 ng/mL 10/09/2024 3:23 PM EDT [facility] Oxymorphone 61 ng/mL 10/09/2024 3:23 PM EDT [facility] Tramadol >1000 ng/mL 10/09/2024 3:23 PM EDT [facility] OPIOID ANTAGONISTS NOT PRESENT 10/09 3:23 PM EDT [facility] SEDATIVES/MUSCLE RELAXANTS NOT PRESENT 10/09/2024 3:23 PM EDT [facility] TRICYCLIC ANTIDEPRESSANTS NOT PRESENT 10/09/2024 3:23 PM EDT [facility] Urine 10/06/2024 11:5 1 AM EDT 10/06/2024 1:13 PM EDT Bisi Hernandez DO URINE ORDERABLES Final Result [facility] [address] [place] [address], [facility] * (ABNORMAL) Urine Drug Screen Reflex to Confirmation (10/06/2024 11:51 AM EDT) Amphetamine, 500 ng/mL Cutoff Negative Negative 10/06/2024 1:13 PM EDT [facility] Barbiturates UR, 300 ng/mL Cutoff Negative Negative 10/06/2024 1:13 PM EDT [facility] Buprenorphine, 5 ng/mL Cutoff Negative Negative 10/06/2024 1:13 PM EDT [facility] Benzodiazepines UR, 300 ng/mL Cutoff Negative Negative 10/06/2024 1:13 PM EDT [facility] Cocaine UR, 300 ng/mL Cutoff Negative Negative 10/06/2024 1:13 PM EDT [facility] Methadone, UR, 300 ng/mL Cutoff Negative Negative 10/06/2024 1:13 PM EDT [facility] Opiates UR, 300 ng/mL Cutoff Negative Negative 10/06/2024 1:13 PM EDT [facility] Oxycodone, 100 ng/mL Cutoff Presumptive Positive(A) Negative 10/06/2024 1:13 PM EDT [facility] Tricyclic Antidepressants, 300 ng/mL Cutoff Negative Negative 10/06/2024 1:13 PM EDT [facility] Comment:This test has been d eveloped and its performance characteristics determined by [facility] which is certified under [...] Negative 10/06/2024 1:13 PM EDT [facility] Comment:This is a screening method only and may be associated with false positive and/or false negative results. Results are not definitive without additional confirmatory testing by mass spectrometry. Fentanyl, 2 ng/mL Cutoff Negative Negative 10/06/2024 1:13 PM EDT [facility] Comment:This test has been d eveloped and its performance characteristics determined by [facility] which is certified under [...] 10/06/2024 11:58 AM EDT Narrative [facility] - 10/06/2024 1:13 PM EDT CONFIRMATION TO FOLLOW [facility] DO URINE ORDERABLES Final Result Performing Organization Address City/[facility]/ZIP Co de Phone Number [facility] [address] [place] [address] * Chloride, urine, random (10/06/2024 11:51 AM EDT) Chloride, Ur <15 mmol/L 10/06/2024 1:13 PM EDT [facility] Comment:Reference range not established for this test. Urine 10/06/2024 11:5 1 AM EDT 10/06/2024 11:57 AM EDT DrAvailableella DO URINE ORDERABLES Final Result Performing Organization Address City/[facility]/ZIP Co de Phone Number [facility] [address] * Potassium, urine, random (10/06/2024 11:51 AM EDT) Potassium Urine Random 49.0 mmol/L 10/06/2024 1:13 PM EDT [facility] Comment:Reference range not established for this test. Urine 10/06/2024 11:5 1 AM EDT 10/06/2024 11:57 AM EDT Bisi Akana maría DO URINE ORDERABLES Final Result Performing Organization Address City/[facility]/ZIP Co de Phone Number [facility] [address] [facility] * Sodium, urine, random (10/06/2024 11:51 AM EDT) Sodium, Ur <10 mmol/L 10/06/2024 1:13 PM EDT [facility] Comment:Reference range not established for this test. Urine 10/06/2024 11:5 1 AM EDT 10/06/2024 11:57 AM EDT DrAvailableana maría DO URINE ORDERABLES Final Result Performing Organization Address [facility] de Phone Number [facility] [address] [facility] * Urinalysis w/Rfl to Microscopic (10/06/2024 11:51 AM EDT) Color, UA Yellow Yellow,Straw 10/06/2024 12:25 PM EDT [facility] Clarity, UA Clear Clear 10/06/2024 12:25 PM EDT [facility] Specific Allen, UA 1.014 1.005 - 1.035 10/06/2024 12:25 PM EDT [facility] pH, UA 6.0 5.0 - 8.0 10/06/2024 12:25 PM EDT [facility] Protein, UA Negative Negative mg/dL 10/06/2024 12:25 PM EDT [facility] Glucose, UA Negative Negative mg/dL 10/06/2024 12:25 PM EDT [facility] Ketones, UA Negative Negative mg/dL 10/06/2024 12:25 PM EDT [facility] Bilirubin, UA Negative Negative 10/06/2024 12:25 PM EDT [facility] Blood, UA Negative Negative 10/06/2024 12:25 PM EDT [facility] Nitrite, UA Negative Negative 10/06/2024 12:25 PM EDT [facility] Urobilinogen, UA <2.0 0.2 - 1.9 mg/dL 10/06/2024 12:25 PM EDT [facility] Leukocyte Esterase, UA Negative Negative 10/06/2024 12:25 PM EDT [facility] Urine 10/06/2024 11:5 1 AM EDT 10/06/2024 11:57 AM EDT Narrative [facility] - 10/06/2024 12:25 PM EDT Microscopic testing is not performed when the dipstick is negative for blood, leukocyte, protein and nitrite. us Bisi Hernandez DO URINE ORDERABLES Final Result Performing Organization Address [facility]/ZIP Co de Phone Number [facility] [address] [place] [address] * Lactic Acid, STAT (10/06/2024 7:38 AM EDT) Lactate 0.9 0.5 - 2.2 mmol/L 10/06/2024 8:05 AM EDT [facility] Plasma 10/06/2024 7:38 AM EDT 10/06/2024 7:42 AM EDT Chari Vanegas MD LAB BLOOD ORDERABLES Final Resul t Performing Organization Address City/[facility]/ZIP Co de Phone Number [facility] [address] * (ABNORMAL) CBC, STAT (10/06/2024 7:37 AM EDT) WBC 5.6 3.8 - 10.8 10E3/uL 10/06/2024 8:22 AM EDT [facility] RBC 2.50(L) 4.20 - 5.80 10E6/uL 10/06/2024 8:22 AM EDT [facility] Hemoglobin 9.0(L) 13.2 - 17.1 g/dL 10/06/2024 8:22 AM EDT [facility] Hematocrit 25.3(L) 38.5 - 50.0 % 10/06/2024 8:22 AM EDT [facility] MCV 101.2(H) 80.0 - 100.0 fL 10/06/2024 8:22 AM EDT [facility] MCH 36.0(H) 27.0 - 33.0 pg 10/06/2024 8:22 AM EDT [facility] MCHC 35.6 32.0 - 36.0 g/dL 10/06/2024 8:22 AM EDT [facility] RDW 17.7(H) 11.0 - 15.0 % 10/06/2024 8:22 AM EDT [facility] Platelets 52(L) 140 - 400 10E3/uL 10/06/2024 8:22 AM EDT [facility] Comment: Specimen checked for clots. None detected. Slide Reviewed for PLT Clumps. None Seen. MPV 8.2 7.5 - 11.5 fL 10/06/2024 8:22 AM EDT [facility] Whole Blood 10/06/2024 7:37 AM EDT 10/06/2024 7:43 AM EDT us Chari Vanegas MD LAB BLOOD ORDERABLES Final Resul t [facility] [address] [place] [address], [facility] * (ABNORMAL) Comprehensive Metabolic Panel (10/06/2024 7:37 AM EDT) Sodium 129(L) 133 - 146 mmol/L 10/06/2024 8:16 AM EDT [facility] Potassium 4.4 3.5 - 5.3 mmol/L 10/06/2024 8:16 AM EDT [facility] Chloride 100 98 - 110 mmol/L 10/06/2024 8:16 AM EDT [facility] CO2 18(L) 21 - 33 mmol/L 10/06/2024 8:16 AM EDT [facility] Anion Gap 11 3 - 16 mmol/L 10/06/2024 8:16 AM EDT [facility] BUN 62(H) 7 - 25 mg/dL 10/06/2024 8:16 AM EDT [facility] Creatinine 3.40(H) 0.60 - 1.30 mg/dL 10/06/2024 8:16 AM EDT [facility] Glucose 98 70 - 100 mg/dL 10/06/2024 8:16 AM EDT [facility] Calcium 9.5 8.6 - 10.3 mg/dL 10/06/2024 8:16 AM EDT [facility] Total Bilirubin 14.3(H) 0.0 - 1.5 mg/dL 10/06/2024 8:16 AM EDT [facility] AST 57(H) 13 - 39 U/L 10/06/2024 8:16 AM EDT [facility] ALT 29 7 - 52 U/L 10/06/2024 8:16 AM EDT [facility] Alkaline Phosphatase 158(H) 36 - 125 U/L 10/06/2024 8:16 AM EDT [facility] Total Protein 5.6(L) 6.4 - 8.9 g/dL 10/06/2024 8:16 AM EDT [facility] Albumin 3.6 3.5 - 5.7 g/dL 10/06/2024 8:16 AM EDT [facility] Osmolality, Calculated 286 278 - 305 mOsm/kg 10/06/2024 8:16 AM EDT [facility] EGFR 22 10/06/2024 8:16 AM EDT [facility] Comment:As of 2021, the estimated [...] BLOOD ORDERABLES Final Resul t [facility] [address] [place] [address], [facility] * (ABNORMAL) Venous Blood Gas, Line/Syringe, STAT (10/06/2024 7:37 AM EDT) PH-Line Draw 7.27(L) 7.32 - 7.42 10/06/2024 7:46 AM EDT [facility] PCO2-Line Draw 36(L) 41 - 51 mm Hg 10/06/2024 7:46 AM EDT [facility] PO2-Line Draw 44(H) 25 - 40 mm Hg 10/06/2024 7:46 AM EDT [facility] HCO3-Line Draw 17(L) 24 - 28 mmol/L 10/06/2024 7:46 AM EDT [facility] CO2 Content-Line Draw 18(L) 25 - 29 mmol/L 10/06/2024 7:46 AM EDT [facility] Base Excess-Line Draw -9.6(L) -2.0 - 3.0 mmol/L 10/06/2024 7:46 AM EDT [facility] %HBO2-Line Draw 69.8 40.0 - 70.0 % 10/06/2024 7:46 AM EDT [facility] Carboxyhgb-Ludivina e Draw 0.7 % 10/06/2024 7:46 AM EDT [facility] Comment: CARBOXYHEMOGLOBIN (CO) REFERENCE RANGES: Non-Smokers: <2 % Smokers: <8 % TOXIC: >20 % Methemoglobin- Line Draw 0.3 0.0 - 1.5 % 10/06/2024 7:46 AM EDT [facility] Reduced Hemoglobin-Ludivina e Draw 29.2(H) 0.0 - 5.0 % 10/06/2024 7:46 AM EDT [facility] Venous, Line Draw 10/06/2024 7:37 AM EDT 10/06/2024 7:43 AM EDT Chari Vanegas MD LAB BLOOD ORDERABLES Final Resul t [facility] [address] [place] [address], [facility] * (ABNORMAL) Venous Blood Gas, Line/Syringe, STAT (10/06/2024 4:03 AM EDT) PH-Line Draw 7.21(L) 7.32 - 7.42 10/06/2024 4:16 AM EDT [facility] PCO2-Line Draw 41 41 - 51 mm Hg 10/06/2024 4:16 AM EDT [facility] PO2-Line Draw 32 25 - 40 mm Hg 10/06/2024 4:16 AM EDT [facility] HCO3-Line Draw 16(L) 24 - 28 mmol/L 10/06/2024 4:16 AM EDT [facility] CO2 Content-Line Draw 18(L) 25 - 29 mmol/L 10/06/2024 4:16 AM EDT [facility] Base Excess-Line Draw -10.8(L) -2.0 - 3.0 mmol/L 10/06/2024 4:16 AM EDT [facility] %HBO2-Line Draw 47.5 40.0 - 70.0 % 10/06/2024 4:16 AM EDT [facility] Carboxyhgb-Ludivina e Draw 2.0 % 10/06/2024 4:16 AM EDT [facility] Comment: CARBOXYHEMOGLOBIN (CO) REFERENCE RANGES: Non-Smokers: <2 % Smokers: <8 % TOXIC: >20 % Methemoglobin- Line Draw 0.7 0.0 - 1.5 % 10/06/2024 4:16 AM EDT [facility] Reduced Hemoglobin-Ludivina e Draw 49.8(H) 0.0 - 5.0 % 10/06/2024 4:16 AM EDT [facility] Venous, Line Draw 10/06/2024 4:03 AM EDT 10/06/2024 4:12 AM EDT Bisi Akella DO LAB BLOOD ORDERABLES Final Resul t Performing Organization Address [facility] de Phone Number [facility] [address] * (ABNORMAL) Protime-INR (10/06/2024 4:01 AM EDT) Protime 21.3(H) 12.1 - 15.1 seconds 10/06/2024 4:40 AM EDT [facility] INR 1.8(H) 0.9 - 1.1 10/06/2024 4:40 AM EDT [facility] Comment: RECOMMENDED THERAPEUTIC RANGES USING INR : Stable oral anticoagulant therapy: 2.0 - 3.0 Mechanical prosthetic heart valve: 2.5 - 3.5 Recurrent acute myocardial infarction: 2.5 - 3.5 Plasma 10/06/2024 4:01 AM EDT 10/06/2024 4:11 AM EDT Libretto DO LAB BLOOD ORDERABLES Final Resul t Performing Organization Address [facility] Co de Phone Number [facility] [address] * (ABNORMAL) Hepatic Function Panel, AM (10/06/2024 4:01 AM EDT) Total Bilirubin 14.7(H) 0.0 - 1.5 mg/dL 10/06/2024 4:57 AM EDT [facility] Bilirubin, Direct 7.08(H) 0.00 - 0.40 mg/dL 10/06/2024 4:57 AM EDT [facility] AST 60(H) 13 - 39 U/L 10/06/2024 4:57 AM EDT [facility] ALT 31 7 - 52 U/L 10/06/2024 4:57 AM EDT [facility] Alkaline Phosphatase 162(H) 36 - 125 U/L 10/06/2024 4:57 AM EDT [facility] Total Protein 5.3(L) 6.4 - 8.9 g/dL 10/06/2024 4:57 AM EDT [facility] Albumin 3.4(L) 3.5 - 5.7 g/dL 10/06/2024 4:57 AM EDT [facility] Bilirubin, Indirect 7.62(H) 0.00 - 1.10 mg/dL 10/06/2024 4:57 AM EDT [facility] Plasma 10/06/2024 4:01 AM EDT 10/06/2024 4:22 AM EDT [facility] BLOOD ORDERABLES Final Resul t Performing Organization Address City/[facility] Co de Phone Number [facility] [address] [facility]. [address] * Magnesium (10/06/2024 4:01 AM EDT) Magnesium 1.8 1.5 - 2.5 mg/dL 10/06/2024 4:57 AM EDT [facility] Plasma 10/06/2024 4:01 AM EDT 10/06/2024 4:22 AM EDT [facility] BLOOD ORDERABLES Final Resul t Performing Organization Address [facility] de Phone Number [facility] [address] * (ABNORMAL) Renal Function Panel w/EGFR (10/06/2024 4:01 AM EDT) Sodium 129(L) 133 - 146 mmol/L 10/06/2024 4:57 AM EDT [facility] Potassium 4.7 3.5 - 5.3 mmol/L 10/06/2024 4:57 AM EDT [facility] Chloride 100 98 - 110 mmol/L 10/06/2024 4:57 AM EDT [facility] CO2 16(L) 21 - 33 mmol/L 10/06/2024 4:57 AM EDT [facility] Anion Gap 13 3 - 16 mmol/L 10/06/2024 4:57 AM EDT [facility] BUN 61(H) 7 - 25 mg/dL 10/06/2024 4:57 AM EDT [facility] Creatinine 3.49(H) 0.60 - 1.30 mg/dL 10/06/2024 4:57 AM EDT [facility] Glucose 104(H) 70 - 100 mg/dL 10/06/2024 4:57 AM EDT [facility] Calcium 9.2 8.6 - 10.3 mg/dL 10/06/2024 4:57 AM EDT [facility] Phosphorus 5.3(H) 2.1 - 4.7 mg/dL 10/06/2024 4:57 AM EDT [facility] Albumin 3.4(L) 3.5 - 5.7 g/dL 10/06/2024 4:57 AM EDT [facility] Osmolality, Calculated 286 278 - 305 mOsm/kg 10/06/2024 4:57 AM EDT [facility] EGFR 22 10/06/2024 4:57 AM EDT [facility] Comment:As of 2021, the estimated [...] BLOOD ORDERABLES Final Resul t [facility] [address] [place] [address], [facility] * (ABNORMAL) CBC (10/06/2024 4:01 AM EDT) WBC 7.6 3.8 - 10.8 10E3/uL 10/06/2024 5:16 AM EDT [facility] RBC 2.77(L) 4.20 - 5.80 10E6/uL 10/06/2024 5:16 AM EDT [facility] Hemoglobin 10.1(L) 13.2 - 17.1 g/dL 10/06/2024 5:16 AM EDT [facility] [facility] Hematocrit 28.4(L) 38.5 - 50.0 % 10/06/2024 5:16 AM EDT [facility] MCV 102.4(H) 80.0 - 100.0 fL 10/06/2024 5:16 AM EDT [facility] MCH 36.4(H) 27.0 - 33.0 pg 10/06/2024 5:16 AM EDT [facility] MCHC 35.5 32.0 - 36.0 g/dL 10/06/2024 5:16 AM EDT [facility] RDW 18.0(H) 11.0 - 15.0 % 10/06/2024 5:16 AM EDT [facility] Platelets 53(L) 140 - 400 10E3/uL 10/06/2024 5:16 AM EDT [facility] Comment:Specimen checked for clots. None detected. MPV 8.4 7.5 - 11.5 fL 10/06/2024 5:16 AM EDT [facility] Whole Blood 10/06/2024 4:01 AM EDT 10/06/2024 4:11 AM EDT us Bisi Hernandez DO LAB BLOOD ORDERABLES Final Resul t [facility] [address] [address], [facility] * Hepatitis C Antibody (10/06/2024 4:01 AM EDT) HCV Ab Nonreactive Nonreactive 10/06/2024 5:12 AM EDT [facility] Comment:Health Department no tified in accordance with reportable infectious disease guidelines. Serum 10/06/2024 4:01 AM EDT 10/06/2024 4:11 AM EDT Counts include 234 beds at the [facility] - 10/06/2024 5:12 AM EDT Antibodies to HCV not detected; does not exclude the possibility of exposure to HCV. [facility] BLOOD ORDERABLES Final Resul t Performing Organization Address City/[facility]/ZIP Co de Phone Number [facility] [address] [facility]. [address] * (ABNORMAL) Hepatitis B Surface Antibody, Quantitati (10/06/2024 4:01 AM EDT) Hep B S Ab Reactive( A) Nonreactive 10/06/2024 5:16 AM EDT [facility] HBSAB NUMBER 11.50(H) 0.00 - 7.99 mIU/mL 10/06/2024 5:16 AM EDT [facility] Serum 10/06/2024 4:01 AM EDT 10/06/2024 4:11 AM EDT Counts include 234 beds at the [facility] - 10/06/2024 5:16 AM EDT Individual is considered immune to HBV infection. [facility] BLOOD ORDERABLES Final Resul t Performing Organization Address [facility] Co de Phone Number [facility] [address] [facility]. [address] * Hepatitis B surface antigen (10/06/2024 4:01 AM EDT) Hep B Surface Ag Nonreactive Nonreactive 10/06/2024 5:07 AM EDT [facility] Comment:Health Department no tified in accordance with reportable infectious disease guidelines. Serum 10/06/2024 4:01 AM EDT 10/06/2024 4:11 AM EDT Counts include 234 beds at the [facility] - 10/06/2024 5:07 AM EDT Specimen is considered negative for HBsAg. [facility] BLOOD ORDERABLES Final Resul t Performing Organization Address City/[facility]/ZIP Co de Phone Number [facility] [address] * Hepatitis A Antibody Total (10/06/2024 4:01 AM EDT) Anti-HAV Total (IgG + IgM) Nonreactive 10/06/2024 5:08 AM EDT [facility] Serum 10/06/2024 4:01 AM EDT 10/06/2024 4:11 AM EDT Narrative [facility] - 10/06/2024 5:08 AM EDT HAV antibodies not detected [facility] BLOOD ORDERABLES Final Resul t [facility] [address] [place] [facility]. [address] * Hepatitis A IgM (10/06/2024 4:01 AM EDT) Hep A IgM Nonreactive Nonreactive 10/06/2024 5:02 AM EDT [facility] Serum 10/06/2024 4:01 AM EDT 10/06/2024 4:11 AM EDT Narrative [facility] - 10/06/2024 5:02 AM EDT IgM anti-HAV not detected. Does not exclude the possibility of exposure to or infection with HAV. Levels of IgM anti-HAV may be below the cut-off in early infection. [facility] BLOOD ORDERABLES Final Resul t [facility] [place]isha [place] [facility]. [address] * (ABNORMAL) Salicylate Level (10/06/2024 4:01 AM EDT) Salicylate Lvl <3(L) 10 - 30 mg/dL 10/06/2024 4:58 AM EDT [facility] Serum 10/06/2024 4:01 AM EDT 10/06/2024 4:22 AM EDT [facility] BLOOD ORDERABLES Final Resul t Performing Organization Address [facility] Co de Phone Number [facility] [address] [facility]. [address] * AFP Tumor Marker (10/06/2024 4:01 AM EDT) [facility] AFP-Tumor Marker 2.6 0.0 - 9.0 ng/mL 10/06/2024 4:55 AM EDT [facility] Serum 10/06/2024 4:01 AM EDT 10/06/2024 4:22 AM EDT Narrative HEALTH LAB - 10/06/2024 4:55 AM EDT The testing method for AFP is a chemiluminescent immunoassay manufactured by [employer] Concentrations of AFP obtained by different assay methods or kits may vary and cannot be used interchangeably. AFP results cannot be interpreted as absolute evidence of the presence or absence of malignant disease. [facility] BLOOD ORDERABLES Final Resul t Performing Organization Address [facility] Co de Phone Number [facility] [address] [facility]. [address] * Upper Respiratory Viral/Bacterial Panel-COOLER SERVICE SUPERVISOR Only (10/06/2024 3:12 AM EDT) [facility] Adenovirus Not Detected Not Detected 10/06/2024 11:38 PM EDT [facility] Coronavirus (229E,HKU1,NL63,OC 43) Not Detected Not Detected 10/06/2024 11:38 PM EDT [facility] SARS-CoV-2 Not Detected Not Detected 10/06/2024 11:38 PM EDT [facility] Human Metapneumovirus Not Detected Not Detected 10/06/2024 11:38 PM EDT [facility] Human Rhinovirus/Enterov irus Not Detected Not Detected 10/06/2024 11:38 PM EDT [facility] Influenza A Not Detected Not Detected 10/06/2024 11:38 PM EDT [facility] Influenza A H1 Not Detected Not Detected 10/06/2024 11:38 PM EDT [facility] Influenza A/H1-2009 Not Detected Not Detected 10/06/2024 11:38 PM EDT [facility] Influenza A H3 Not Detected Not Detected 10/06/2024 11:38 PM EDT [facility] Influenza B Not Detected Not Detected 10/06/2024 11:38 PM EDT [facility] Parainfluenza 1 Not Detected Not Detected 10/06/2024 11:38 PM EDT [facility] Parainfluenza 2 Not Detected Not Detected 10/06/2024 11:38 PM EDT [facility] Parainfluenza 3 Not Detected Not Detected 10/06/2024 11:38 PM EDT [facility] Parainfluenza 4 Not Detected Not Detected 10/06/2024 11:38 PM EDT [facility] Resp. Syncycial Virus A Not Detected Not Detected 10/06/2024 11:38 PM EDT [facility] Resp. Syncycial Virus B Not Detected Not Detected 10/06/2024 11:38 PM EDT [facility] Chlamydia pneumoniae Not Detected Not Detected 10/06/2024 11:38 PM EDT [facility] Mycoplasma pneumoniae Not Detected Not Detected 10/06/2024 11:38 PM EDT [facility] Comment: The Respiratory Viral-Bacterial Panel [...] Test results have been sent to the [facility] in accordance with state requirements. For a fact sheet for healthcare providers, see https://www.fda.gov/media/652514/download. For a fact sheet for patients, see https://www.fda.gov/media/321051/download. Nasopharyngeal Swab NASOPHARYNGEAL SWAB / Unknown 10/06/2024 3:12 AM EDT 10/06/2024 5:41 PM EDT Comment:COOLER SERVICE SUPERVISOR us Bisi Hernandez DO BODY FLUIDS AND STOOLS ORDERABLE S Final Result [facility] [address] [place] [address], [facility] * X-ray Portable Chest (10/06/2024 [...] 10/06/2024 2:33 AM EDT Bisi Hernandez DO [facility] ORDERABLE S Final Result * Phosphatidylethanol Confirmation, B (10/06/2024 1:04 AM EDT) PETH 16:0/18.1 (POPETH) <10 Cutoff: 10 ng/mL 10/10/2024 3:11 AM EDT [facility] Comment: Phosphatidylethanol (PEth) homologues result interpretation [...] Cutoff: 10 ng/mL 10/10/2024 3:11 AM EDT [facility] Comment: PEth 16:0/18:2 (PLPEth) Reference ranges are not well established PEth Interpretation Negative. 10/10 3:11 AM EDT [facility] Comment: ADDITIONAL INFORMATION This report is intended for use in clinical monitoring and management of patients. It is not intended for use in employment-related testing. This test was developed and its performance characteristics determined by [facility] in a manner consistent with CLIA requirements. This test has not been cleared or approved by the U.S. Food and Drug Administration. Test Performed by: [address] [address] [place] Clerk: Kathy Ortiz Ph.D.; CLIA# [id number] Whole Blood 10/06/2024 1:04 AM EDT 10/10/2024 3:11 AM EDT [facility] BLOOD ORDERABLES Final Resul t Performing Organization Address City/[facility]/ZIP Co de Phone Number [facility] [address] [place] [address]. [address] * (ABNORMAL) Acetaminophen Level (10/06/2024 1:04 AM EDT) Acetaminophen Level <10(L) 10 - 30 ug/mL 10/06/2024 2:08 AM EDT [facility] Serum 10/06/2024 1:04 AM EDT 10/06/2024 1:30 AM EDT [facility] BLOOD ORDERABLES Final Resul t Performing Organization Address [facility] Co de Phone Number [facility] [address] [place] [address]. [address] * Ethanol, Serum (10/06/2024 1:04 AM EDT) Ethanol <10 0 - 10 mg/dL 10/06/2024 2:08 AM EDT [facility] Serum 10/06/2024 1:04 AM EDT 10/06/2024 1:30 AM EDT [facility] BLOOD ORDERABLES Final Resul t Performing Organization Address City/[facility] Co de Phone Number [facility] [address] [place] [address]. [address] * #2 Blood culture-Peripheral site 2 (10/06/2024 1:04 AM EDT) Culture Result No Growth After 5 Days [facility] Blood BLOOD SPECIMEN / Unknown 10/06/2024 1:04 AM EDT 10/06/2024 4:57 AM EDT Narrative [facility] - 10/11/2024 5:05 AM EDT Suboptimal volume of blood received. Interpret results with caution. Bisi Hernandez DO MICROBIOLOGY - GENERAL ORDERABLE S Final Result Performing Organization Address [facility]/ZIP Co de Phone Number [facility] [address] * #1 Blood culture-Peripheral site 1 (10/06/2024 1:04 AM EDT) Culture Result No Growth After 5 Days [facility] Blood BLOOD SPECIMEN / Unknown 10/06/2024 1:04 AM EDT 10/06/2024 4:57 AM EDT Narrative [facility] - 10/11/2024 5:01 AM EDT Suboptimal volume of blood received. Interpret results with caution. Bisi Hernandez DO MICROBIOLOGY - GENERAL ORDERABLE S Final Result Performing Organization Address [facility] Co de Phone Number [facility] [address] [place] [address]. [address] * Ammonia (10/06/2024 1:04 AM EDT) Ammonia 77 27 - 90 ug/dL 10/06/2024 2:00 AM EDT [facility] Plasma 10/06/2024 1:04 AM EDT 10/06/2024 1:30 AM EDT Bisi scanRana maría DOZIER LAB BLOOD ORDERABLES Final Resul t Performing Organization Address City/[facility]/ZIP Co de Phone Number [facility] [address] [facility]. [address] * Thyroid Function [place] (10/06/2024 1:04 AM EDT) TSH 0.84 0.45 - 4.12 uIU/mL 10/06/2024 2:20 AM EDT [facility] Serum 10/06/2024 1:04 AM EDT 10/06/2024 1:39 AM EDT Bisi Akella DO LAB BLOOD ORDERABLES Final Resul t Performing Organization Address City/[facility]/ZIP Co de Phone Number [facility] [address] * (ABNORMAL) Protime-INR (10/06/2024 1:04 AM EDT) Protime 22.8(H) 12.1 - 15.1 seconds 10/06/2024 1:48 AM EDT [facility] INR 1.9(H) 0.9 - 1.1 10/06/2024 1:48 AM EDT [facility] Comment: RECOMMENDED THERAPEUTIC RANGES USING INR : Stable oral anticoagulant therapy: 2.0 - 3.0 Mechanical prosthetic heart valve: 2.5 - 3.5 Recurrent acute myocardial infarction: 2.5 - 3.5 Plasma 10/06/2024 1:04 AM EDT 10/06/2024 1:30 AM EDT us Bisi([employer] DO LAB BLOOD ORDERABLES Final Resul t Performing Organization Address [facility]/ZIP Co de Phone Number [facility] [address] * Lactic Acid, STAT (10/06/2024 1:04 AM EDT) Lactate 1.2 0.5 - 2.2 mmol/L 10/06/2024 1:59 AM EDT [facility] Plasma 10/06/2024 1:04 AM EDT 10/06/2024 1:30 AM EDT us Libretto DO LAB BLOOD ORDERABLES Final Resul t Performing Organization Address City/[facility]/ZIP Co de Phone Number [facility] [address] [facility]. [address] * (ABNORMAL) CBC, STAT (10/06/2024 1:04 AM EDT) WBC 7.9 3.8 - 10.8 10E3/uL 10/06/2024 2:36 AM EDT [facility] RBC 2.76(L) 4.20 - 5.80 10E6/uL 10/06/2024 2:36 AM EDT [facility] Hemoglobin 9.9(L) 13.2 - 17.1 g/dL 10/06/2024 2:36 AM EDT [facility] Hematocrit 28.0(L) 38.5 - 50.0 % 10/06/2024 2:36 AM EDT [facility] MCV 101.5(H) 80.0 - 100.0 fL 10/06/2024 2:36 AM EDT [facility] MCH 35.7(H) 27.0 - 33.0 pg 10/06/2024 2:36 AM EDT [facility] MCHC 35.2 32.0 - 36.0 g/dL 10/06/2024 2:36 AM EDT [facility] RDW 17.9(H) 11.0 - 15.0 % 10/06/2024 2:36 AM EDT [facility] Platelets 58(L) 140 - 400 10E3/uL 10/06/2024 2:36 AM EDT [facility] Comment: Specimen checked for clots. None detected. Slide Reviewed for PLT Clumps. None Seen. MPV 8.2 7.5 - 11.5 fL 10/06/2024 2:36 AM EDT [facility] Whole Blood 10/06/2024 1:04 AM EDT 10/06/2024 1:31 AM EDT us Bisi Hernandez DO LAB BLOOD ORDERABLES Final Resul t [facility] [address] [place] [address], [facility] * (ABNORMAL) Comprehensive Metabolic Panel (10/06/2024 1:04 AM EDT) Sodium 127(L) 133 - 146 mmol/L 10/06/2024 2:05 AM EDT [facility] Potassium 4.5 3.5 - 5.3 mmol/L 10/06/2024 2:05 AM EDT [facility] Chloride 99 98 - 110 mmol/L 10/06/2024 2:05 AM EDT [facility] CO2 18(L) 21 - 33 mmol/L 10/06/2024 2:05 AM [facility] Anion Gap 10 3 - 16 mmol/L 10/06/2024 2:05 AM [facility] BUN 59(H) 7 - 25 mg/dL 10/06/2024 2:05 AM [facility] Creatinine 3.54(H) 0.60 - 1.30 mg/dL 10/06/2024 2:05 AM T [facility] Glucose 116(H) 70 - 100 mg/dL 10/06/2024 2:05 AM T [facility] Calcium 9.0 8.6 - 10.3 mg/dL 10/06/2024 2:05 AM [facility] Total Bilirubin 14.8(H) 0.0 - 1.5 mg/dL 10/06/2024 2:05 AM [facility] AST 61(H) 13 - 39 U/L 10/06/2024 2:05 AM [facility] ALT 33 7 - 52 U/L 10/06/2024 2:05 AM [facility] Alkaline Phosphatase 174(H) 36 - 125 U/L 10/06/2024 2:05 AM [facility] Total Protein 5.2(L) 6.4 - 8.9 g/dL 10/06/2024 2:05 AM [facility] Albumin 3.3(L) 3.5 - 5.7 g/dL 10/06/2024 2:05 AM [facility] Osmolality, Calculated 282 278 - 305 mOsm/kg 10/06/2024 2:05 AM [facility] EGFR 21 10/06/2024 2:05 AM [facility] Comment:As of 2021, the estimated [...] BLOOD ORDERABLES Final Resul t [facility] [address] [place] [address], [facility] documented in this encounter Visit [...] 10 mg nitroGLYCERIN in D5W injection - NITRILES LAB TECHNICIAN ONLY Intra-op PRN, Starting on Sun10/14/24 at [...] Milton, RN) 0850 (Given - Provider: Suzette Aricniega, ЮЛИЯ) sertraline (ZOLOFT) tablet 50 mg (CANCELED) [...] at 0900 0819 (Given - Provider: Anu Woflf RN) 0833 (Given - Provider: Anu Wolff [...] documented as of this encounter Care Teams Zyglo Technician Relationship Specialty Start Date End Date Enedina Mcguire NP [address] [place] [address] PCP - General Internal Medicine 10/05/24 documented as of this encounter
--- OUTSIDE RECORDS SUMMARY | 2024-10-20 09:10 | XMS_ITS | Encounter Summary ---
Author Organization [facility] Address [facility] [place] [address] Care Team Providers Care Monogram Operator Name Role Phone Enedina Mcguire NP Primary Care Provider [phone] Source Comments This information has been disclosed [...] release of HIV test results or diagnoses. [id number] Encounter Details Date Type Department Care Team (Latest Contact Info) Description 10/20/2024 9:10 AM EDT - 10/20/2024 11:59 PM EDT Hospital Encounter [facility] Radiology [address] [place] [phone] System, Provider Not In Discharge Disposition: Home [...] Recorded In the past 12 months has [employer], gas, oil, or water [employer] threatened to shut off services in your [...] time in the past 12 m [facility], were you homeless or living in a care home (including now)? No 10/06/2024 Yearly Questionnaire [...] AM EDT 10/17/2024 naloxone (NARCAN) 4 mg/actuation [place] Apply 1 spray in one nostril if needed. Call 911. May repeat dose in other nostril if no response in 3 minutes. 2 each 1 10/17/2024 10:25 AM EDT 10/17/2024 ciprofloxacin HCl (CIPRO) 500 MG tablet Take 1 tablet (500 mg total) by mouth daily. 30 tablet 10/20/2024 5 folic acid (FOLVITE) 1 MG tablet [...] 12/05/2024 8:01 AM EDT Hospital Encounter [facility] ENDOSCOPY [address] [place] [phone] Chris Orosco MD [address] [place] [phone] 12/05/2024 8:01 AM EDT - 12/05/2024 8:[address] [facility] ENDOSCOPY [address] [place] [address] Chris Orosco MD [address] [place] [phone] EGD Scheduled Procedures Name Priority Associated Diagnoses [...] documented as of this encounter Care Teams Monogram Operator Relationship Specialty Start Date End Date Enedina Mcguire NP [address] [place] [address] PCP - General Internal Medicine 10/05/24 documented as of this encounter
--- OUTSIDE RECORDS SUMMARY | 2024-10-20 09:10 | XMS_ITS | Encounter Summary ---
Author Organization [facility] Address [facility] [place] [address] Care Team Providers Care Sales Planning Manager Name Role Phone Enedina Mcguire NP Primary Care Provider [phone] Source Comments This information has been disclosed [...] release of HIV test results or diagnoses. [id number] Encounter Details Date Type Department Care Team (Latest Contact Info) Description 10/20/2024 9:10 AM EDT - 10/20/2024 11:59 PM EDT Hospital Encounter [facility] Radiology [address] [place] [phone] System, Provider Not In Discharge Disposition: Home [...] Recorded In the past 12 months has [employer], gas, oil, or water [employer] threatened to shut off services in your [...] AM EDT 10/17/2024 naloxone (NARCAN) 4 mg/actuation [place] Apply 1 spray in one nostril if [...] Hospital Encounter [facility] ENDOSCOPY [address] [place] [address] Chris Orosco MD [address] [place] [phone] 12/05/2024 8:01 AM EDT - 12/05/2024 8:31 AM EDT Surgery [facility] ENDOSCOPY [address] [place] [address] Chris Orosco MD [address] [place] [phone] EGD Scheduled Procedures Name Priority Associated Diagnoses [...] as of this encounter Care Teams Sales Planning Manager Relationship Specialty Start Date End Date Enedina Mcguire NP [address] [place] [address] PCP - General Internal Medicine 10/05/24 documented as of this encounter
--- OUTSIDE RECORDS SUMMARY | 2024-10-20 09:10 | XMS_ITS | Encounter Summary ---
Author Organization [facility] Address [facility] [place] [address] Care Team Providers Care Marine Service Manager Name Role Phone Enedina Mcguire NP Primary Care Provider [phone] Source Comments This information has been disclosed [...] release of HIV test results or diagnoses. [id number] Encounter Details Date Type Department Care Team (Latest Contact Info) Description 10/20/2024 9:10 AM EDT - 10/20/2024 11:59 PM EDT Hospital Encounter [facility] Radiology [address] [place] [phone] System, Provider Not In Discharge Disposition: Home [...] Recorded In the past 12 months has [employer], gas, oil, or water [employer] threatened to shut off services in your [...] AM EDT 10/17/2024 naloxone (NARCAN) 4 mg/actuation [place] Apply 1 spray in one nostril if [...] Description 12/05/2024 8:01 AM EDT Hospital Encounter [facility] ENDOSCOPY [address] [place] [address] Chris Orosco MD [address] [place] [phone] 12/05/2024 8:01 AM EDT - 12/05/2024 8:31 AM EDT Surgery [facility] ENDOSCOPY [address] [place] [address] Chris Orosco MD [address] [place] [phone] EGD Scheduled Procedures Name Priority Associated Diagnoses [...] documented as of this encounter Care Teams Marine Service Manager Relationship Specialty Start Date End Date Enedina Mcguire NP [address] [place] [address] PCP - General Internal Medicine 10/05/24 documented as of this encounter
--- OUTSIDE RECORDS SUMMARY | 2024-10-20 09:10 | XMS_ITS | Encounter Summary ---
Author Organization [facility] Address [facility] [address] [place] [address] Care Team Providers Care Maintenance Instructor Name Role Phone Enedina Mcguire NP Primary Care Provider [phone] Source Comments This information has been disclosed [...] release of HIV test results or diagnoses. [id number] Encounter Details Date Type Department Care Team (Latest Contact Info) Description 10/20/2024 9:10 AM EDT - 10/20/2024 11:59 PM EDT Hospital Encounter [facility] Radiology [address] [place] [phone] System, Provider Not In Discharge Disposition: Home [...] Recorded In the past 12 months has [employer], gas, oil, or water [employer] threatened to shut off services in [...] any time in the past 12 m [facility], were you homeless or [...] AM EDT 10/17/2024 naloxone (NARCAN) 4 mg/actuation [place] Apply 1 spray in one nostril if [...] [facility] ENDOSCOPY [address] [place] [address] Chris Orosco MD [address] [place] [phone] 12/05/2024 8:01 AM EDT - 12/05/2024 8:31 AM EDT Surgery [facility] ENDOSCOPY [address] [place] [address] Chris Orosco MD [address] [place] [phone] EGD Scheduled Procedures Name Priority Associated Diagnoses [...] documented as of this encounter Care Teams Maintenance Instructor Relationship Specialty Start Date End Date Enedina Mcguire NP [address] [place] [address] PCP - General Internal Medicine 10/05/24 documented as of this encounter
--- OUTSIDE RECORDS SUMMARY | 2024-10-20 09:10 | XMS_ITS | Encounter Summary ---
Author Organization [facility] Address [facility] [place] [address] Care Team Providers Care Staple Shear Operator Name Role Phone Enedina Mcguire NP Primary Care Provider [phone] Source Comments This information has been disclosed [...] release of HIV test results or diagnoses. [id number] Encounter Details Date Type Department Care Team (Latest Contact Info) Description 10/20/2024 9:10 AM EDT - 10/20/2024 11:59 PM EDT Hospital Encounter [facility] Radiology [address] [place] [phone] System, Provider Not In Discharge Disposition: Home [...] Recorded In the past 12 months has [employer], gas, oil, or water [email or web address] threatened to shut off services in your [...] living in a jail (including now)? No 10/06/2024 Yearly Questionnaire Answer [...] AM EDT 10/17/2024 naloxone (NARCAN) 4 mg/actuation [place] Apply 1 spray in one nostril if [...] [facility] ENDOSCOPY [address] [place] [address] Chris Orosco MD [address] [place] [phone] 12/05/2024 8:01 AM EDT - 12/05/2024 8:31 AM EDT Surgery [facility] ENDOSCOPY [address] [place] [address] Chris Orosco MD [address] [place] [phone] EGD Scheduled Procedures Name Priority Associated Diagnoses [...] documented as of this encounter Care Teams Staple Shear Operator Relationship Specialty Start Date End Date Enedina Mcguire NP [address] [place] [address] PCP - General Internal Medicine 10/05/24 documented as of this encounter
--- OUTSIDE RECORDS SUMMARY | 2024-10-20 09:10 | XMS_ITS | Encounter Summary ---
Author Organization [facility] Address [facility] [place] [address] Care Team Providers Care Primer Inspector Name Role Phone Enedina Mcguire NP Primary Care Provider [phone] Source Comments This information has been disclosed [...] release of HIV test results or diagnoses. [id number] Encounter Details Date Type Department Care Team (Latest Contact Info) Description 10/20/2024 9:10 AM EDT - 10/20/2024 11:59 PM EDT Hospital Encounter [facility] Radiology [address] [place] [phone] System, Provider Not In Discharge Disposition: Home [...] Recorded In the past 12 months has [employer] gas, oil, or water [employer] threatened to shut off services in your [...] AM EDT 10/17/2024 naloxone (NARCAN) 4 mg/actuation [place] Apply 1 spray in one nostril if [...] Hospital Encounter [facility] ENDOSCOPY [address] [place] [address] Chris Orosco MD [address] [place] [phone] 12/05/2024 8:01 AM EDT - 12/05/2024 8:31 AM EDT Surgery [facility] ENDOSCOPY [address] [place] [address] Chris Orosco MD [address] [place] [phone] EGD Scheduled Procedures Name Priority Associated Diagnoses [...] documented as of this encounter Care Teams Primer Inspector Relationship Specialty Start Date End Date Enedina Mcguire NP [address] [place] [address] PCP - General Internal Medicine 10/05/24 documented as of this encounter
--- OUTSIDE RECORDS SUMMARY | 2024-10-20 09:10 | XMS_ITS | Encounter Summary ---
Author Organization [facility] Address [facility] [place] [address] Care Team Providers Care Sewing Machine Repairer Helper Name Role Phone Enedina Mcguire NP Primary Care Provider [phone] Source Comments This information has been disclosed [...] release of HIV test results or diagnoses. [id number] Encounter Details Date Type Department Care Team (Latest Contact Info) Description 10/20/2024 9:10 AM EDT - 10/20/2024 11:59 PM EDT Hospital Encounter [facility] Radiology [address] [place] [phone] System, Provider Not In Discharge Disposition: Home [...] Recorded In the past 12 months has [employer], gas, oil, or water [employer] threatened to shut off services in your [...] AM EDT 10/17/2024 naloxone (NARCAN) 4 mg/actuation [place] Apply 1 spray in one nostril if [...] 12/05/2024 8:01 AM EDT Hospital Encounter [facility] ENDOSCOPY [address] [place] [address] Chris Orosco MD [address] [place] [phone] 12/05/2024 8:01 AM EDT - 12/05/2024 8:31 AM EDT Surgery [facility] ENDOSCOPY [address] [place] [address] Chris Orosco MD [address] [place] [phone] EGD Scheduled Procedures Name Priority Associated Diagnoses [...] documented as of this encounter Care Teams Sewing Machine Repairer Helper Relationship Specialty Start Date End Date Enedina Mcguire NP [address] [place] [address] PCP - General Internal Medicine 10/05/24 documented as of this encounter
--- OUTSIDE RECORDS SUMMARY | 2024-10-25 20:46 | XMS_ITS | Encounter Summary ---
Author Organization [facility] Address [address] [place] [address] Care Team Providers Care Order Runner Name Role Phone Enedina Mcguire NP Primary Care Provider + [phone] Alicia Pantoja RN Unavailable Unavail able Source [...] release of HIV test results or diagnoses. [id number] Reason for Referral * Surgical (Routine) - Authorized Specialty Diagnoses / Procedures Referred By Shane hernadez Referred To Contact Surgery Diagnoses Acute kidney injury superimposed on CKD (CMS-HCC) Procedures Case request operating room: TRANSPLANT KIDNEY with bile duct reconstruction Sveta Judge MD [address] [facility] [address] [place] [address] Phone: tel: fax: Referral ID Status Reason Start Date Expiration Date V isits Requested Visits Authorized [id number] Authorized 10/26/2024 04/24/2025 1 1 Reason for Visit * Auth/Cert (Routine) Specialty Diagnoses / Procedures Referred By Shane hernadez Referred To Contact Surgical Intensive Care Diagnoses Liver transplant recipient (CMS-HCC) cirrhosis and CKD Procedures LIVER-KIDNEY TRANSPLANT [facility] [address] [facility] [place] [address] Phone: tel: Referral ID Status Reason Start Date Expiration Date Visits Re quested Visits Authorized [id number] 1 1 Encounter Details Date Type Department Care Team (Latest Contact Info) Description 10/25/2024 8:46 PM EDT - 11/02/2024 6:23 PM EDT Hospital Encounter [address] [place] [address] Harvey Domínguez III, MD [address] [facility] [address] [place] [address] Lydia Sanchez MD [address] [facility] [place] [address] Acute kidney injury superimposed on CKD ([facility]) (Primary Dx); Prophylactic antibiotic; Prolonged QT interval; Immunosuppression ([facility]); Abdominal pain, unspecified abdominal location Discharge Disposition: [...] Recorded In the past 12 months has [employer] land investment, or water [employer] threatened to shut off services in your [...] living in a detention (including now)? No 10/29/2024 Yearly Questionnaire Answer [...] alcohol? Never 10/29/2024 10:02 PM EDT Vandana iVlchis RN Q2: How many drinks containing alcohol do you have on a typical day when you are drinking? Patient does not drink 10/29/2024 10:02 PM EDT Vandana Vilchis RN Q3: How often do you have six or more drinks on one occasion? Never 10/29/2024 10:02 PM EDT Vandana Vilchis RN documented as of this encounter Discharge Instructions * Discharge Instructions* [...] up appointments. Diet: Regular diet Drain/Dressing/Wound Care: Jerry will be removed in clinic approximately 3-4 [...] kept under 2 gm/day. Please discuss withyour ambulatory care coordinator if you have any question about appropriate dose to take. Other Instructions: Call post-liver transplant clinic with questions [phone] or call [facility] at [phone] and ask for the liver shutdown coordinator insulation worker furnace installer if you experience any of the following: [...] hours Follow-Up: You will need Labs every Sun/ - your coordinator will review the results with you and make any necessary medication adjustments. Follow up appts in liver transplant clinic in outpatient building on 3rd floor. Future Appointments Date Time Provider Department Center 11/04/2024 8:40 AM [facility], [facility] 11/04/2024 10:10 AM [facility] 11/25/2024 9:00 AM NAA Merida [facility] URO MAB MAB 12/02/2024 2:00 PM Bossman Huffman MD [facility] MARIANGEL MAB [facility] 02/25/2025 10:50 AM Bruno Gonzalez MD [facility] HOX HOX documented in this encounter Medications at Time of Discharge acetaminophen (TYLENOL) 325 MG tablet Take 3 tablets (975 mg total) by mouth every 8 hours. 200 tablet 11/02/2024 10:20 AM EDT 10/27/2024 alcohol swabs PadM Use as instructed. 200 each 1 11/02/2024 10:20 AM EDT 10/27/2024 apixaban (ELIQUIS) 2.5 mg Tab Take 1 tablet (2.5 mg total) by mouth 2 times a day for 24 days. Last dose 11/26/24 48 tablet 11/02/2024 10:20 AM EDT 11/02/2024 blood sugar diagnostic (GLUCOSE BLOOD) Str Use to test blood sugar up to 4 times a day. 100 strip 11 11/02/2024 10:20 AM EDT 10/27/2024 blood-glucose meter (TRUE METRIX GLUCOSE METER) Mis Use to test blood sugar up to 4 times a day. 1 each 11/02/2024 10:20 AM EDT 10/27/2024 ergocalciferol (ERGOCALCIFEROL) 1,250 mcg (50,000 unit) capsule Take 1 capsule (50,000 Units total) by mouth once a week. 4 capsule 2 11/02/2024 10:20 AM EDT 10/27/2024 famotidine (PEPCID) 20 MG tablet Take 1 tablet (20 mg total) by mouth 2 times a day. 60 tablet 2 11/02/2024 10:20 AM EDT 10/27/2024 fluconazole (DIFLUCAN) 200 MG tablet Take 1 [...] 90 capsule 11/02/2024 10:20 AM EDT 10/31/2024 insulin aspart, niacinamide, (FIASP FLEXTOUCH U-100 INSULIN) [...] AM EDT 10/27/2024 lancets (ACCU-CHEK SOFTCLIX LANCETS) [facility] Use to test blood sugar up to [...] 180 tablet 11/02/2024 10:20 AM EDT 10/30/2024 mycophenolate (CELLCEPT) 250 mg capsule Take 2 capsules (500 mg total) by mouth 2 times a day. 120 capsule 5 10/27/2024 naloxone (NARCAN) 4 mg/actuation [place] Apply 1 spray in one nostril if needed. Call 911. May repeat dose in other nostril if no response in 3 minutes. 2 each 1 10/17/2024 10:25 AM EDT 10/17/2024 NIFEdipine (PROCARDIA-XL) 30 MG (OSM) 24 hr tablet Take 1 tablet (30 mg total) by mouth daily. 30 tablet 11/02/2024 10:20 AM EDT 11/02/2024 pen needle, diabetic 32 gauge x 5/32 [...] 30 tablet 11/02/2024 10:20 AM EDT 10/27/2024 sulfamethoxazole- trimethoprim (BACTRIM) 400-80 mg per tablet Take 1 tablet by mouth daily. 30 tablet 2 11/02/2024 10:20 AM EDT 10/27/2024 tacrolimus (PROGRAF) 1 MG capsule Take 6 capsules (6 mg total) by mouth 2 times a day. Use as directed 600 capsule 5 11/02/2024 valGANciclovir (VALCYTE) 450 mg tablet Take 1 tablet (450 mg total) by mouth daily. 30 tablet 2 11/02/2024 10:20 AM EDT 10/27/2024 HYDROmorphone (DILAUDID) 2 MG tabletIndications :Abdominal pain, unspecified abdominal location Take 1 tablet (2 mg total) by mouth every 6 hours as needed for up to 7 days. 28 tablet 11/02/2024 10:20 AM EDT 10/31/2024 5 linezolid (ZYVOX) 600 mg tablet Take 1 tablet (600 mg total) by mouth 2 times a day. 28 tablet 11/02/2024 3:06 PM EDT 11/02/2024 5 predniSONE (DELTASONE) 5 MG tablet Take 4 tablets (20 mg total) by mouth daily. 120 tablet 2 11/02/2024 10:20 AM EDT 10/27/2024 5 sodium bicarbonate 650 MG tablet Take 2 tablets (1,300 mg total) by mouth 2 times a day. 28 tablet 11/02/2024 10:20 AM EDT 10/31/2024 5 torsemide (DEMADEX) 20 MG tablet Take 1 tablet (20 mg total) by mouth daily. 30 tablet 11/02/2024 5 documented as of this encounter Progress Notes * Shaji Gamino, PharmD - 11/02/2024 10:34 AM EDT Transplant Pharmacy Note Discharge Medication Education, Evaluation and Transition Name: Blair Gilbert Discharge prescriptions were dispensed from Discharge Pharmacy, other than tacrolimus and mycophenolate which were dispensed through [facility] Specialty per insurance requirements. Patient's confirms those [...] fair Expected caregiver involvement?: is primary med night manager Need for additional education in clinic?: routine reinforcement only Future medications to be obtained from, if known (select one): Tac/MMF to be filled from [facility] Financial concerns (if any): no [...] Units total)by mouth once a week., Starting Sun10/27/2024, Normal, Disp- 4 capsule, R-2 famotidine (PEPCID) [...] Disp-15 mL, R-2 lancets (ACCU-CHEK SOFTCLIX LANCETS) [facility] Use to test blood sugar up to [...] Disp-30 tablet, R-0 naloxone (NARCAN) 4 mg/actuation [place] Apply 1 spray in one nostril [...] Comments: Reason for Stopping: Eduardo Gamino, Pharm.D., [facility] Solid Organ Transplant Clinical Specialist Contact via Kii Secure Chat * Froylan Hendrickson MD - 11/01/2024 8:04 AM EDT Liver Transplant Surgery Progress Note Name: Blair Gilbert CSN: [id number] Date: 11/01/2024 8:06 AM OR Date: 10/25/2024 [...] at 10/31/2024 4:38 PM EDT US Duplex Xgr-Ymy-Zhlpbho Comp Result Date: 10/31/2024 IMPRESSION: RIGHT UPPER [...] 10/25/2024 - 10/27/2024. Plan: Liver transplant recipient ([facility]) [Z94.4] Neuro: - Multimodal pain control: tylenol, [...] Transplant Surgery 8:06 AM 11/01/2024 Cosigned by yLdia Sanchez MD at 11/05/2024 8:57 AM EDT [...] 3:24 PM EDT TXP - Follow Up [facility] Medical Nutrition Therapy Transplant Brief Note Diet Order/Nutrition Support: Diet/Nutrition Orders Diet Regular(7) high calorie 3000 kcal a day Frequency: Effective Now Number of Occurrences: Until Specified Order Questions: Additional restrictions: high calorie 3000 kcal a day Suicide/Behavior Risk Modification? No Dietary nutrition supplements Frequency: TID Number of Occurrences: Until Specified Order Questions: Select Supplement: Boost VHC- very high calorie protein supplement ([facility] only) Pertinent Information: Pt seen for [...] Based on DBW of 93.1 kg Kcals/day: 6945-8588 (25-30 kcals/kg) Protein g/day: 140-190 (1.5-2.0 g/kg) [...] Dietitian - Solid Organ Transplant Contact via Epic Chat * Keon Dobson - 10/31/2024 2:35 PM EDT [facility] Spiritual Care Volunteer Visit PATIENT NAME: Blair Gilbert ROOM:[address] [place] [address] Congregation Affiliation:Cheondoism Blair Gilbert was visited by a volunteer today. No needs requiring a visit from a staff scientific recruiter were expressed at that time. Care Provided: Communion, Prayer/ blessing Please page our service at [phone] as needs arise for patient and/or family. Fr Dean Dobson Cheondoism scientific recruiter Spiritual Care Dept * Brittany Horne PT - 10/31/2024 1:42 PM EDT Physical Therapy Reason Patient Not Seen Name: Blair Gilbert : 1985 Attending Physician: Lydia Sanchez MD Admission Diagnosis: Liver transplant recipient ([facility]) [Z94.4] Date: 10/31/2024 Precautions: Precautions: none Reviewed [...] Activity Level: Activity as tolerated Assist: OT VIVIANE Ratliff Recommendation Recommendation: Home OT Equipment Recommendations: Patient already has needed DME Patient already has needed DME: shower chair Equipment issued by OT: Long-handled sponge, Sock aid, Concrete Batcher, Other (comment) Equipment issued by OT comment: leg tempering machine operator Assessment Assessment: Decreased ADL status, Decreased IADLs, [...] IADL task (Goal met and continued 10/31) Assisted Goal : Pt will complete bathing assessment and transfer alf goal to be met in: 2 weeks [...] Diagnosis Decompensated cirrhosis ([facility]) Acute kidney injury superimposed on CKD ([facility]) Alcohol use disorder Metabolic encephalopathy Hypertension Other hyperlipidemia Thrombocytopenia ([facility]) Renal mass, left Abdominal pain Hypokalemia CKD (chronic kidney disease) stage 4, GFR 15-29 ml/min ([facility]) Metabolic acidosis with normal anion gap and bicarbonate losses GERD (gastroesophageal reflux disease) Hypothyroidism Itching Anemia BRBPR (bright red blood per rectum) SBP (spontaneous bacterial peritonitis) ([facility]) C Diff Diarrhea C. difficile diarrhea Neck [...] Intake/Output last 3 shifts: Date 10/30/24699 - 10/31/2465810/31/24 07 - 11/01/24 0659 Shift 8374-6331 9047-8878 3698-5596 24 Hour Total 7464-0071 2375-0375 9081-5089 24 Hour Total INTAKE P.O. 240 240 P.O. 240 240 Shift Total(mL/kg) 240(1.9) 240(1.9) OUTPUT Urine(mL/kg/hr) 1850(1.8) 600(0.6) 600(0.6) 3050(1) 350 350 Urine 800 856 099 1733 350 350 Urine Occurrence 2 x 2 [...] with further concerns Lavell Kramer MD 10/31/[phone] * Priti Geiger CNP - 10/31/2024 10:06 AM EDT Liver Transplant Surgery Progress Note Name: Blair Gilbert CSN: [id number] Date: 10/31/2024 10:06 AM OR Date: 10/25/2024 [...] 10/28/24 1109 LACTATE 0.3* Imaging US Duplex Yyf-Ksl-Ymesyrg Comp Result Date: 10/28/2024 IMPRESSION: ABDOMINAL ULTRASOUND [...] 10/25/2024 - 10/27/2024. Plan: Liver transplant recipient ([facility]) [Z94.4] Neuro: - Multimodal pain control: tylenol, [...] BID PPX: SQH, SCDs DISPO: floor PRITI GEGIER CNP Transplant Surgery 10:06 AM 10/31/2024 Cosigned [...] Transplant Surgery * Caron Santos CNP - 10/31/2024 9:30 AM EDT Images from the original note were not included. Transplant Nephrology Progress Note Patient: Blair Gilbert [id number] Date of Admit: 10/25/2024. 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 Lauren Santos, DNP, CONFERENCE SERVICE COORDINATOR, FRACTIONATION SUPERVISOR- Transplant Nephrology [phone] Preferred contact: secure chat The HPI, ROS, [...] 0659 10/30/24 07 - 10/31/24 0659 Shift 1871-2756 6449-1753 3032-5927 24 Hour Total 9592-6865 2867-4904 2118-6338 24 Hour Total INTAKE P.O. 240 240 480 P.O. 240 240 480 IV Piggyback 87.2 87.2 Volume (mL) (micafungin (MYCAMINE) 50 mg in sodium chloride 0.9 % 100 mL Qgod9Kvf IVPB) 87.2 87.2 Shift Total(mL/kg) 240(2) 327.2(2.7) 567.2(4.4) OUTPUT Urine(mL/kg/hr) 600(0.6) 1175(1.2) 450(0.4) 2225(0.7) 550 550 Output (mL) (IUC (Berkowitz) Triple-lumen (3-Way) 18 Fr.) 600 2782 799 6955 550 550 Drains 175 245 100 520 [...] month of prophylaxis Lavell Kramer MD 10/30/[phone] * Priti Geiger CNP - 10/30/2024 10:36 AM EDT Liver Transplant Surgery Progress Note Name: Blair Gilbert CSN: [id number] Date: 10/30/2024 10:37 AM OR Date: 10/25/2024 [...] 10 mg, Q4H PRN Recent Labs 10/28/24 2004 10/29/24 0507 10/30/24 0541 WBC 3.9 7.8 8.1 [...] 1109 LACTATE 0.5 0.3* Imaging US Duplex Fzy-Vgw-Mtnryrn Comp Result Date: 10/28/2024 IMPRESSION: ABDOMINAL ULTRASOUND [...] 10/25/2024 - 10/27/2024. Plan: Liver transplant recipient ([facility]) [Z94.4] Neuro: - Multimodal pain control: tylenol, [...] Transplant Nephrology Progress Note Patient: Blair Gilbert [id number] Date of Admit: 10/25/2024. 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 Lauren Santos, DNP, CONFERENCE SERVICE COORDINATOR, FRACTIONATION SUPERVISOR- Transplant Nephrology [phone] Preferred contact: secure chat The HPI, ROS, [...] EDT Pt seen, examined, and discussed with EDGE PLUGGER on 10/30/2024. reviewed the chart including the [...] 3:36 PM EDT TXP - Follow Up [facility] Medical Nutrition Therapy Follow-Up Diet Order/Nutrition [...] I/O: +23.3L net volume. Last BM Date: (business development coordinator). Admit Weight: 270 lb (122.5 kg) Current Weight: (!) 270 lb (122.5 kg) Pertinent Labs: Recent Labs 10/28/24 1449 10/28/24200310/29/24 0507 [...] 4.8* Recent Labs 10/27/24 1713 10/28/24 0005 10/28/243 10/28/24 11010/29/24 0507 AST 62* 60* -- 44* [...] Based on DBW of 93.1 kg Kcals/day: 0835-4162 (25-30 kcals/kg) Protein g/day: 140-190 (1.5-2.0 g/kg) [...] Dietitian - Solid Organ Transplant Contact via Kii Chat * Anita Crystal, PT - 10/29/2024 2:04 PM EDT Physical Therapy Initial Assessment Name: Blair Gilbert : 1985 Attending Physician: Harvey Domínguez III, MD Admission Diagnosis: Liver transplant recipient ([facility]) [Z94.4] Date: 10/29/2024 Room: [place] [address] [address] Reviewed Pertinent hospital course: Yes Hospital Course [...] with functional mobility at: 4/10 or less Assisted Goal : Pt will ambulate 250' mod [...] packing; Surgeon: Harvey Domínguez III, MD; Location: [facility]; Service: Transplant; Laterality: N/A; [1] Patient Active Problem List Diagnosis Decompensated cirrhosis ([facility]) Acute kidney injury superimposed on CKD ([facility]) Alcohol use disorder Metabolic encephalopathy Hypertension Other hyperlipidemia Thrombocytopenia (CMS-HCC) Renal mass, left Abdominal pain Hypokalemia CKD (chronic kidney disease) stage 4, GFR 15-29 ml/min ([facility]) Metabolic acidosis with normal anion gap and bicarbonate losses GERD (gastroesophageal reflux disease) Hypothyroidism Itching Anemia BRBPR (bright red blood per rectum) SBP (spontaneous bacterial peritonitis) ([facility]) C Diff Diarrhea C. difficile diarrhea Neck pain with history of cervical spinal surgery * Shanel Pabon, OT - 10/29/2024 1:23 PM EDT Occupational Therapy Initial Assessment Name: Blair Gilbert : 1985 Attending Physician: Harvey Domínguez III, MD Admission Diagnosis: Liver transplant recipient ([facility]) [Z94.4] Date: 10/29/2024 Room: [place] [address] [address] Reviewed Pertinent hospital course: Yes Hospital Course [...] Intervention(s): Ambulation/increased activity;Repositioned Therapist reported pain to: ash collector Oxygen Supplemental Oxygen Supplemental Oxygen: None (Room [...] distance ambulation in prep for IADL task Assisted Goal : Pt will complete bathing assessment and transfer alf goal to be met in: 2 weeks Collaborated with: Patient Patient/Family Education Educated patient on the role of occupational therapy, OT goals, OT plan of care, discharge recommendation, ADL training, functional mobility training, and the importance of safety and fall preventionstrategies including need for supervision/ assistance with OOB activity and use of call light. patient verbalized understanding. OT Time Start Time: 08 Stop Time: 927 Time Calculation (min): 39 [...] per rectum) SBP (spontaneous bacterial peritonitis) ([facility] C Diff Diarrhea C. difficile diarrhea Neck pain with history of cervical spinal surgery * Caron Santos, EZEKIEL - 10/29/2024 10:30 AM EDT Images from the original note were not included. Transplant Nephrology Progress Note Patient: Blair Gilbert [id number] SICU-28/IC- Date of Admit: 10/25/2024. LOS: 4 days. 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 Lauren Santos, DNP, CONFERENCE SERVICE COORDINATOR, FRACTIONATION SUPERVISOR- Transplant Nephrology [phone] Preferred contact: secure chat The HPI, ROS, [...] EDT Pt seen, examined, and discussed with EDGE PLUGGER on 10/29/2024. reviewed the chart including the labs and imaging studies. My additional comments below. 39 y.o. 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 Recent Labs 10/27/24171210/28/2441210/28/24 110 INR 1.1 1.1 1.1 PROTIME 15.2* 14.6 14.3 Recent Labs 10/28/2441210/28/24 1109 10/29/24 0507 NA 142 144 144 K 3.5 3.4* 3.8 CL 111* 112* 113* CO2 22 22 17* BUN 58* 57* 57* CREATININE 2.24* 2.01* 1.93* CALCIUM 9.1 8.8 9.3 MG 2.2 2.1 2.1 PHOS 4.8* 4.0 4.8* GLUCOSE 103* 108* 110* Recent Labs 10/27/24 0800 10/27/24 1741 10/28/24 1109 LACTATE 0.4* 0.5 0.3* Imaging US Duplex Sct-Ass-Aqabxgc Comp Result Date: 10/28/2024 IMPRESSION: ABDOMINAL ULTRASOUND [...] at 10/27/2024 10:38 AM EDT US Duplex Xsf-Rer-Qolwjiq Comp Result Date: 10/27/2024 IMPRESSION: RIGHT UPPER [...] 10/25/2024 - 10/27/2024. Plan: Liver transplant recipient ([facility]) [Z94.4] Neuro: - Multimodal pain control: tylenol, [...] SQH, SCDs DISPO: floor KENYETTA HARTMAN, MS4 [facility] General Surgery 10:08 AM 10/29/2024 Cosigned by [...] last 3 shifts: Date 10/28/24 07 - 10/29/2459 10/29/24 07 - 10/30/24 0659 Shift 1229-9029 3603-5510 7933-5385 24 Hour Total 7721-2581 4987-8783 4433-0334 24 Hour Total INTAKE P.O. 240 0 [...] IV infusion) 253.9 374.7 775.6 1404.2 Blood 7762 698 8045 Albumin 750 750 Volume (Transfuse RBC Transfusion Rate: Per dept routine) 310 310 Volume (Transfuse RBC Transfusion Rate: Per dept routine) 271 271 IV Piggyback 918.4 549 53 5015.4 Volume (mL) (micafungin (MYCAMINE) 50 mg in sodium chloride 0.9 % 100 mL Uecq1Tpy IVPB) 99.9 99.9 Volume (mL) (albumin human [...] month of prophylaxis Lavell Kramer MD 10/29/[phone] * John Moreno MD - 10/29/2024 6:47 AM EDT SURGICAL ICU PROGRESS NOTE 10/29/2024 6:47 AM Name: Blair Gilbert CSN: [id number] HPI: Blair Gilbert is a 39 y.o. [...] to 4 times a day. DEXCOM G7 ADVISOR ADVOCATE ANGEL CO FOUNDER Misc Use reader as directed. DEXCOM G7 [...] times a day. naloxone (NARCAN) 4 mg/actuation [place] Apply 1 spray in one nostril if needed. Call 911. May repeat dose in other nostril if no response in 3 minutes. pen needle, diabetic 32 gauge x Ndle For use with insulin pen. Use [...] 37 37 35 PO2ART 245* 182* 92 JVL9OQD 22 21* 21* BEART -4.2* -4.8* -4.6* [...] at baseline or with provocation, shows no zjtob-iw-hkyv atrial level shunt. - Pulmonary arteries: Systolic [...] Home pantoprazole 40mg daily, continue Last BM: STAPLE PROCESSING MACHINE OPERATOR - suppository today Bowel regimen: Miralax today, [...] hold - Labs per transplant protocol - 10/27 with appropriate flows, no concerns - [...] results for input(s): TEGANGLE , TEGKTIME , RURDNFXK06 , TEGMAXAMPL , TEGRTIME , CBMZ in [...] in sodium chloride 0.9 % 100 mL Hyhx7Pjl IVPB 50 mg Every 24 hours 10/27/2024 -- Admin Instructions: PROTECT FROM LIGHT FLUSH LINE w/NSS PRIOR TO ADMINISTRATION Use Nitp9Hmv Adapter - Mix Thoroughly Before Administration Route: [...] BID Continuous Infusions: HYDROmorphone 6 mg/30 mL FEED MIXER HELPER norepinephrine 4 mcg/min (10/27/24 2318) sodium chloride [...] 0.9 % Intake/Output last 3 shifts: Date 10/27/24699 - 10/28/2465810/28/24699 - 10/29/24658 Shift 1796-2563 2493-3170 0817-5648 24 Hour Total 3209-0848 7211-4825 5523-1296 24 Hour Total INTAKE P.O. 0 120 [...] in sodium chloride 0.9 % 100 mL Ihuy3Xav IVPB) 100 100 Volume (mL) (albumin human 5%) 126 126 Volume (mL) (potassium chloride (KCl)/Sterile water 50 mL 20 mEq/50 mL IVPB 20 mEq) 100 100 Volume (mL) (AMPicillin 1 g in sodium chloride 0.9% 100 mL IVPB (Qlxo5Hux)) 100.1 57 42.9 200 Volume (mL) (mycophenolate (CELLCEPT) 500 mg in dextrose 5% in water (D5W) 50 mL IVPB) 50 5.3 55.3 Shift Total(mL/kg) 2079.3(17) 1161(9.5) 787.3(6.4) 4027.6(32.9) OUTPUT Urine(mL/kg/hr) 2195(2.2) 1000(1) 900(0.9) 4095(1.4) 490 490 Urine 360 360 Output (mL) (IUC (Berkowitz) Triple-lumen (3-Way) 18 Fr.) 1835 7594 738 5079 490 490 Emesis/NG output 50 50 Drainage [...] person, place, and time. Labs: Lab 10/28/24 0413 WBC 4.5 HEMOGLOBIN 7.3* HEMATOCRIT 21.0* MEAN CORPUSCULAR VOLUME 87.8 PLATELETS 38* Lab 10/28/24 0413 SODIUM 142 POTASSIUM 3.5 CHLORIDE 111* CO2 22 BUN 58* CREATININE 2.24* GLUCOSE 103* CALCIUM 9.1 MAGNESIUM 2.2 PHOSPHORUS 4.8* Lab 10/28/24 0413 ALK PHOS 26* AST 44* ALT 101* BILIRUBIN TOTAL 2.3* BILIRUBIN DIRECT 1.67* Lab 10/28/24 0413 10/25/24 2343 10/25/24 0606 PROTHROMBIN TIME 14.6 < > 21.7* INR [...] month of prophylaxis Lavell Kramer MD 10/28/[phone] * Caron Santos CNP - 10/28/2024 9:00 AM EDT Images from the original note were not included. Transplant Nephrology Progress Note Patient: Blair Gilbert [id number] SICU-28/USIC-28 Date of Admit: 10/25/2024. 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 Lauren Santos, DNP, CONFERENCE SERVICE COORDINATOR, FRACTIONATION SUPERVISOR- Transplant Nephrology [phone] Preferred contact: secure chat The HPI, ROS, [...] EDT Pt seen, examined, and discussed with EDGE PLUGGER on 10/28/2024. reviewed the chart including the labs and imaging studies. My additional comments below. 39 y.o. 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 S/p SLK 10/25-10/26 Has great UOP 4.2L Aaron Gonzalez MD, MEd, FASN * Shay Plata MD - 10/28/2024 7:41 AM EDT Liver Transplant Surgery Progress Note Name: Blair Gilbert CSN: [id number] Date: 10/28/2024 11:05 AM OR Date: 10/25/2024 - 10/27/2024 Subjective: 1 Day Post-Op Received one unit pRBCs overnight On low dose levo this morning Increasing tachycardia Reports worsening pain, on FEED MIXER HELPER Tolerated sips of clears No nausea/vomiting, no [...] Oral BID Continuous: HYDROmorphone 6 mg/30 mL FEED MIXER HELPER norepinephrine Stopped (10/28/24 0637) sodium chloride 0.9 [...] %, 20 mL/hr, Continuous PRN Recent Labs 10/28/24410/28/2441210/28/24 1021 WBC 4.9 4.5 4.1 HGB 6.7* 7.3* 7.1* HCT 19.2* 21.0* 20.4* MCV 87.8 87.8 88.5 PLT 45* 38* 37* Recent Labs 10/27/24 0810/27/24171210/28/24410/28/24412 AST 88* 62* 60* -- 44* ALT 149* 134* 134* -- 101* ALKPHOS 26* 27* 27* -- 26* BILITOT 1.3 1.7* 1.7* -- 2.3* ALBUMIN 3.0* 3.0* 2.9* 2.9* 2.9* 3.1* 3.1* 3.1* BILIDIRECT 0.93* 1.10* 1.17* -- 1.67* PROT 4.0* 4.1* 4.1* -- 4.5* Recent Labs 10/27/24 0816 10/27/24171210/28/24412 INR 1.2* 1.1 1.1 PROTIME 16.2* 15.2* 14.6 Recent Labs 10/27/24171210/28/24 0005 10/28/24412 NA 142 144 142 K 3.4* 3.4* [...] at 10/27/2024 10:38 AM EDT US Duplex Bsc-Cmf-Cfkjodi Comp Result Date: 10/27/2024 IMPRESSION: RIGHT UPPER [...] 10/25/2024 - 10/27/2024. Plan: Liver transplant recipient ([facility]) [Z94.4] Neuro: - Multimodal pain control: dilaudid FEED MIXER HELPER, tylenol, robaxin. PRN dilaudid for breakthrough CV: [...] SCDs DISPO: SICU SHAY PLATA MD, MS4 [facility] General Surgery 11:05 AM 10/28/2024 Cosigned by [...] 10/28/2024 6:17 AM Name: Blair Gilbert CSN: [id number] HPI: Blair Gilbert is a 39 y.o. [...] 30 doses. blood sugar diagnostic (GLUCOSE BLOOD) [facility] Use to test blood sugar up to 4 times a day. blood-glucose meter (TRUE METRIX GLUCOSE METER) [facility] Use to test blood sugar up to 4 times a day. DEXCOM G7 ADVISOR ADVOCATE ANGEL CO FOUNDER Misc Use reader as directed. DEXCOM G7 [...] and at bedtime. lancets (ACCU-CHEK SOFTCLIX LANCETS) [facility] Use to test blood sugar up to 4 times a day. methocarbamoL (ROBAXIN) 500 MG tablet Take 1 tablet (500 mg total) by mouth 3 times a day. naloxone (NARCAN) 4 mg/actuation [place] Apply 1 spray in one nostril [...] Oral BID Continuous: HYDROmorphone 6 mg/30 mL FEED MIXER HELPER insulin regular in 0.9 % sodium chloride [...] 37 37 35 PO2ART 245* 182* 92 UXB9OLA 22 21* 21* BEART -4.2* -4.8* -4.6* [...] at baseline or with provocation, shows no kqveo-mr-aate atrial level shunt. - Pulmonary arteries: Systolic [...] while intubated,convert to PO today Last BM: STAPLE PROCESSING MACHINE OPERATOR Bowel regimen: Miralax today, hold senna til [...] ml IV Fluids: HYDROmorphone 6 mg/30 mL FEED MIXER HELPER insulin regular in 0.9 % sodium chloride, [...] edema A/P: ADDY HEMATOLOGIC Labs: Recent Labs 10/27/24 1713 10/28/24 0005 10/28/24 0413 WBC 4.9 4.9 4.5 HGB 7.4* 6.7* 7.3* HCT 21.4* 19.2* 21.0* MCV 87.6 87.8 87.8 PLT 47* 45* 38* No results for input(s): ANTIXALMWHEP in the last 72 hours. Recent Labs 10/27/24 0816 10/27/24 1713 10/28/24 0413 INR 1.2* 1.1 1.1 PROTIME 16.2* 15.2* 14.6 No results for input(s): TEGANGLE , TEGKTIME , WIQVSJZP54 , TEGMAXAMPL , TEGRTIME , CBMZ in [...] insulin last 24 hours - Today NPH 02/20, 4 units lispro with meals,HDSSI # Hypothyroidism [...] in sodium chloride 0.9% 100 mL IVPB (Oldo3Quw) (Completed) 1 g Every 6 hours scheduled 10/26/2024 10/28/2024 Admin Instructions: Dosage may need to be adjusted for renal dysfunction. Full dose is 1g IV q6h Use Vznt2Qsp Adapter - Mix Thoroughly Before Administration Notes to Pharmacy: On money order clerk estimated creatinine clearance is 35.9 mL/min [...] in sodium chloride 0.9 % 100 mL Yjyn8Qfc IVPB 50 mg Every 24 hours 10/27/2024 -- Admin Instructions: PROTECT FROM LIGHT FLUSH LINE w/NSS PRIOR TO ADMINISTRATION Use Tvox5Dnu Adapter - Mix Thoroughly Before Administration Route: Intravenous A/P: # Leukocytosis Likely reactive in s/o surgery - Continue perioperative Abx, ampicillin, micafungin (/ QTC, see ID note from 10/27 for [...] Duloxetine Other (See Comments) Became Manic * ARCHIE Johnson - 10/27/2024 1:38 PM EDT Caprini Risk [...] the Caprini Risk Score of 10 and [facility] transplant protocol, I recommend discharging on heparin 5,000 units subcutaneously q8h (facility) or Eliquis 2.5 mg PO BID (home) for 30 days total. Endof chemoprophylaxis: 11/25/24. Farhana Velasquez PharmD Candidate, 2025 Cosigned by Hillary Fernandse, TaniD at 10/28/2024 11:50 AM EDT Associated attestation - Hillary Fernandes PharmD - 10/28/2024 11:50 AM EDT I agree with the plan of care as outlined below by the resident/fellow, and will oversee and assistin the transplant-related pharmaceutical care of the patient as needed. Hillary Fernandes PharmD, BCTXP Solid Organ Transplant Clinical Specialist Contact via Kii Secure Chat Preferred O. [phone] * Chinedu Almeida RRT - 10/27/2024 1:10 [...] PCO2 37 10/27/2024 PO2ART 245 (H) 10/27/2024 HPP9PGQ 22 10/27/2024 BEART -4.2 (L) 10/27/2024 WVO1IND 96.5 10/27/2024 Y9OBOXVZ 100 10/27/2024 Based on this SBT assessment [...] Surgery Progress Note Name: Blair Gilbert CSN: [id number] Date: 10/27/2024 11:40 AM OR Date: 10/25/2024 - 10/27/2024 Subjective: * Day of Surgery * Remains intubated in SICU Sedated but appropriately nods to questions No acute distress Objective: BP 100/48 Pulse 89 Temp 99 ??F (37.2 ??C) ([place]) Resp 9 Ht 6' 4 (1.93 m) [...] mL/hr, Continuous PRN Recent Labs 10/26/24 1048 10/26/24 1642 10/27/24 [...] 0.93* PROT 3.8* 3.8* 4.0* Recent Labs 10/26/24 16410/27/24 0013 10/27/24 0816 INR 1.7* 1.5* 1.2* PROTIME 20.3* 18.6* 16.2* Recent Labs 10/26/24 16410/27/24 0013 10/27/24 0800 NA 142 141 142 [...] at 10/27/2024 10:38 AM EDT US Duplex Ktw-Xuu-Wzrxxyg Comp Result Date: 10/27/2024 IMPRESSION: RIGHT UPPER [...] Michela Szymanski RN via telephone by Ag Garica MD on 10/27/2024 7:20 AM EDT. Approved [...] 10/27/2024. Problem List[1] Plan: Liver transplant recipient ([facility]) [Z94.4] Neuro: - Propofol/fentanyl CV: - Wean [...] SQH, SCDs DISPO: SICU KENYETTA HARTMAN, MS4 [facility] Surgery 11:40 AM 10/27/2024 [1] Patient Active Problem List Diagnosis Decompensated cirrhosis ([facility]) Acute kidney injury superimposed on CKD ([facility]) Alcohol use disorder Metabolic encephalopathy Hypertension Other hyperlipidemia Thrombocytopenia ([facility]) Renal mass, left Abdominal pain Hypokalemia CKD (chronic kidney disease) stage 4, GFR 15-29 ml/min ([facility]) Metabolic acidosis with normal anion gap and bicarbonate losses GERD (gastroesophageal reflux disease) Hypothyroidism Itching Anemia BRBPR (bright red blood per rectum) SBP (spontaneous bacterial peritonitis) [place] C Diff Diarrhea C. difficile diarrhea Neck [...] 10/27/2024 7:16 AM Name: Blair Gilbert CSN: [id number] HPI: Blair Gilbret is a 39 y.o. male with a [...] for 30 days. FREESTYLE NIDA 3 READER [facility] Use 1 each as directed Use as [...] in the morning and at bedtime. lancets [facility] Use to test blood sugar up to 4 times a day. Dx: 9.65. Brand per pharmacy / insurance preference. methocarbamoL (ROBAXIN) 500 MG tablet Take 1 tablet (500 mg total) by mouth 3 times a day. mycophenolate (CELLCEPT) 250 mg capsule Take 2 capsules (500 mg total) by mouth 2 times a day. naloxone (NARCAN) 4 mg/actuation [place] Apply 1 spray in one nostril [...] 47* 36 37 PO2ART 127* 91 137* UHC2NUC 21* 22 20* BEART -5.4* -3.9* -6.4* [...] at baseline or with provocation, shows no idalk-ut-mbyj atrial level shunt. - Pulmonary arteries: Systolic [...] IV pantoprazole while intubated, NPO Last BM: STAPLE PROCESSING MACHINE OPERATOR Bowel regimen: Senna/Miralax when able Nausea: Zofran [...] 10/27/2024 0715 Gross per 24 hour Intake 14442.82 ml Output 7060 ml Net 6224.82 ml IV Fluids: angiotensin II (GIAPREZA) 0.005 mg/mL in sodium chloride 0.9 % 500 mL infusion, Last Rate: Stopped (10/27/24 0500) EPINEPHrine (ADRENALIN) 10 mg in sodium chloride 0.9 % 250 mL infusion, Last Rate: Stopped (10/26/24 1251) fentanyl (SUBLIMAZE) IV infusion, Last Rate: 150 mcg/hr (10/26/24 2230) insulin regular in 0.9 % sodium chloride, [...] in the last 72 hours. Recent Labs 10/26/24104710/26/24164110/27/24 0013 INR 2.0* 1.7* 1.5* PROTIME 23.0* 20.3* 18.6* No results for input(s): TEGANGLE , TEGKTIME , GHGDJQYX97 , TEGMAXAMPL , TEGRTIME , CBMZ in [...] in sodium chloride 0.9% 100 mL IVPB (Bfir2Nxz) 1 g Every 6 hours scheduled Admin Instructions: Dosage may need to be adjusted for renal dysfunction. Full dose is 1g IV q6h Use Fvjf2Tlb Adapter - Mix Thoroughly Before Administration Notes to Pharmacy: On money order clerk estimated creatinine clearance is 35.9 mL/min (A) (based on SCr of 3.87 mg/dL (H)). Route: Intravenous Linked Group 1: Placed in And Linked Group cefTRIAXone (ROCEPHIN) 2 g in sodium chloride 0.9 % 100 mL Gntp4Gpm Continuous - One Step Medications Only 10/27/2024 [...] Agitation Sedation Scale: -2 Overall CAM-ICU : ([facility]) A/P: - ADDY # Mood Disorder - [...] R IJ Mac Arterial Line? R radial [place] Urinary Catheter? Berkowitz - Reason: Adequate I/O [...] Duloxetine Other (See Comments) Became Manic * Tani McbrideD - 10/27/2024 6:59 AM EDT Transplant Pharmacy [...] ng/mL POD #> 180: 3-8 ng/mL Hillary Fernandes, TaniD, BCTXP Solid Organ Transplant Clinical Specialist Contact via Kii Secure Chat Preferred * Simeon Guzman RN [...] 10/26/2024 0725 Gross per 24 hour Intake 57123.32 ml Output 2075 ml Net 50722.32 ml Consitutional: Intubated/sedated HEENT: Mucous membranes moist [...] History and Physical Patient: Blair Gilbert CSN: [id number] History CC: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 naloxone (NARCAN) 4 mg/actuation [place] Apply 1 spray in one nostril [...] Resource Strain: Low Risk (07/09/2024) Received from [facility] Overall Financial Resource Strain (CARDIA) Difficulty [...] Answer (07/14/2024) Received from [facility] [place] [employer] - Occupational Stress Questionnaire [...] No results found. Assessment and Plan Blair Justin is a 39 y.o. male with history [...] admitted to SICU post-op. LEANDRA OG MD [facility] Surgery Liver Transplant Pager: [phone] 8:24 PM 10/25/2024 Cosigned by Harvey [...] prior to txp or intra-op CRRT --- R. Vinita Domínguez III, MD Transplant Surgery (cell) documented in this encounter Procedure Notes * Flaquito Ba MD - 10/27/2024 6:29 AM EDT Patient Name: Blair Gilbert Date: 1985 Billing #: [id number] Date of Procedure: 10/25/2024 Diagnosis: End Stage Renal Disease Procedure: 1. Donor Kidney Transplant 2. Back Bench Preparation Donor Kidney 3. Baseline Kidney transplant biopsy 4. Insertion of Indwelling Stent 5. Removal of Perihepatic packing Surgeons * Flaquito Ba MD Wheel Adjuster MD Shayan Findings: Low Hockey stick incision [...] donor was ABO O and UNOS ID [id number], Match Run [id number] ([facility]). This donor was a Donor after cardiac [...] was then wanded with the lap detection call center assistant. The incision was ex tented 2 [...] and closure. Flaquito Ba MD Transplant Surgeon stationary engineer refrigeration * Flaquito Ba MD - 10/27/2024 6:15 AM EDT TRANSPLANT KIDNEY with bile duct reconstruction Brief Op Note Blair Gilbert 10/27/2024 Pre-op Diagnosis: Acute kidney injury superimposed on CKD (CMS-HCC) [N17.9, N18.9] Post-op Diagnosis: same Procedure(s): TRANSPLANT KIDNEY Surgeon(s): MD Harvey Washington III, MD Anesthesia: General Endotracheal Staff: Asset Protection Representative: Chinedu Quinn RN Scrub Person: ST Angela Fellow: Kemar Sahni MD 2nd Asset Protection Representative: Marty Clark RN 3rd Asset Protection Representative: Candis Jonas, RN FINDINGS Berkowitz 3 day Drains: Intraabdominal (perihepatic) UNOS ID [id number], Match Run [id number] Kid WIT 27 min Kid CIT 33 [...] (Berkowitz) Triple-lumen (3-Way) 18 Fr. (Active) Status [place] Drainage 10/26/241999 Collection Container Standard drainage bag [...] Washington III, MD Anesthesia: General Endotracheal Staff: Asset Protection Representative: Chinedu Quinn RN Relief Asset Protection Representative: Michela Amos RN Relief Scrub: Stephani Blake RN Scrub Person: ST Angela Fellow: Kemar Sahni MD 2nd Asset Protection Representative: Marty Clark RN 3rd Asset Protection Representative: Candis Mcdaniel RN Estimated Blood Loss: 300 mL Specimens: Specimens ID Description Commments Type Source Tests Collected By Collected At 1 1) perfusate 1) perfusate Fluid Kidney Left ANAEROBIC CULTURE FUNGUS CULTURE ROUTINE CULTURE PLUS STAIN Harvey Domínguez III, MD 10/27/24 0215 A Baseline Renal Biopsy Tissue Kidney Left SURGICAL PATHOLOGY EXAM Harvey Luck Quillin III, MD 10/27/24 0238 B B) Right [...] (Berkowitz) Triple-lumen (3-Way) 18 Fr. (Active) Status [place] Drainage 10/26/241999 Collection Container Standard drainage bag [...] day Drains: 2 Intraabdominal (perihepatic) UNOS ID [id number], Match Run [id number] Donor: young DCD NRP Kid WIT 27 [...] III, MD - 10/27/2024 12:00 AM EDT [facility] PATIENT NAME: BLAIR GILBERT DATE OF : 1985 CSN: [id number] PHYSICIAN: Harvey Domínguez III, MD ADMIT DATE: 10/25/2024 DICTATED BY: Harvey Domínguez III, MD SURGERY DATE: 10/27/2024 OPERATIVE REPORT SURGEON: Harvey Domínguez III, MD DIGITAL PROJECT MANAGER SURGEON: Kemar Sahni MD. PREOPERATIVE DIAGNOSIS: Open [...] were made hemostatic with the argon beam molten iron pourer. We assessed the flows of the portal [...] a mucocele formation. We then performed a rtik-yi-xhoe choledochocholedochostomy in an end to end fashion [...] small umbilicalhernia that was closed with a kfhodl-tj-qgxow 0 PDS suture. At this point, we [...] immediate complications. MD TEODORA HARMON IIIQ/AQ JOB#: [id number] * Harvey Domínguez III, MD - 10/26/2024 7:00 AM EDT Patient Name: Blair Gilbert Date: 1985 Billing #: [id number] Date of Procedure: 10/25/2024 - 10/26/2024 Diagnosis: Chronic Hepatic Failure without coma Procedure: 1. Orthotopic Liver Transplant 2. Back Bench Preparation Donor Liver 3. Temporary portocaval shunt 4. Perihepatic packing for control of hemorrhage 5. Placement of external choledochal stent 6. Temporary abdominal closure Attending surgeons: Harvey Domínguez III, MD Wheel Adjuster Surgeon(s): Sveta Judge MD Findings: Whole organ placed in piggyback fashion with suprahepatic cava of donor to common orifice of all three hepatic veins for IVC anastomosis. Donor main portal vein to recipient main portal vein. Donor common hepatic artery to recipient right hepatic artery. Temporary abdominal with perihepatic packingfor control of hemorrhage. Externalization of bile duct with 8 [place] pediatric feeding tube. Portal Flow Modulation No [...] This donor was ABO O and UNOSID [id number], Match Run [id number]. This was a 42-year-old donation after circulatory donor. Normothermic regional perfusion was utilized in the donor operation. Functional warm ischemia time was 16minutes and NRP time was 1 hr and 4 minutes. Initial lactate was 9.9 and terminal lactate on NRP was 5.6. Liver function tests and renal function were normal. KDPI was 20%. The donor did not have risk factors for blood-borne disease transmission. All donors and living donors are tested forHIV, HBV, and HCV so the risk for undetected infections is very low, but not zero. Some donors may have risk factors for acute HIV, HBC and HCV infection related to recent social history of injectiondrug abuse, risky sexual behavior, incarceration or unknown [...] After completion of the outflow anastomosis, a Russian clamp was placed across the donor suprahepatic [...] artery flows were then measured with the Skataz device. The portal flow was 3.4 L/min [...] do a temporary abdominal closure. An 8 [place] pediatric feeding tube was brought through the [...] Sveta Alves III, MD Anesthesia: General Staff: Asset Protection Representative: Mak Maher RN; Marty Clark RN Scrub Person: ST Angela Resident: Thuy Leon MD edger machine setter: Jose Daniel Arana RRT Estimated Blood Loss: [...] Number of days: 5 Surgery Information: -UNOS#: [id number] -ABO: O to O -Recipient: SLK candidate [...] 1:19 PM EDTAssociated Order(s): IP CONSULT TO PHYSICS DEPARTMENT CHAIR [facility] Transplant Discharge Education Note Assessment: Received [...] Outcome: 3 - Comprehends albarado points Elle Gomez MSN, RN, NPD- Diabetes Education Office [phone] Schedule: M-F 8:00am-4:30pm * Ben Weiss RD - 10/27/2024 4:06 PM EDTAssociated Order(s): IP CONSULT TO NUTRITION SERVICES; IP CONSULT TO NUTRITION SERVICES TXP - Initial [facility] Medical Nutrition Therapy Reason(s) for Completion: [...] I/O: +23.2L net volume. Last BM Date: (STAPLE PROCESSING MACHINE OPERATOR). Admit Weight: 270 lb (122.5 kg) Current [...] HYDROmorphone, sodium chloride 0.45% (1/2 NS) Vital Signs: Temp: [98.2 ??F (36.8 [...] Based on DBW of 93.1 kg Kcals/day: 8107-0126 (25-30 kcals/kg) Protein g/day: 140-190 (1.5-2.0 g/kg) [...] Dietitian - Solid Organ Transplant Contact via Kii Chat * Lavell Kramer MD - 10/27/2024 11:09 AM EDTAssociated Order(s): INPATIENT CONSULT TO TRANSPLANT INFECTIOUS DISEASES Infectious Disease Consultation Patient: Blair Gilbert CSN: [id number] Assessment & Plan 39 y.o. M s/p [...] blood cx's if febrile Lavell Kramer MD [phone] Chief Complaint Long Qtc History of Present [...] Resource Strain: Low Risk (07/09/2024) Received from [facility] Overall Financial Resource Strain (CARDIA) Difficulty [...] Answer (07/14/2024) Received from [facility] [place] [employer] - Occupational Stress Questionnaire [...] Medicine Transplant Nephrology Consult Note Patient: Blair Gilbetr Date of Admit: 10/25/2024 Referring physician: Harvey [...] 30 doses. blood sugar diagnostic (GLUCOSE BLOOD) [facility] Use to test blood sugar up to 4 times a day. blood-glucose meter (TRUE METRIX GLUCOSE METER) [facility] Use to test blood sugar up to 4 times a day. DEXCOM G7 ADVISOR ADVOCATE ANGEL CO FOUNDER Misc Use reader as directed. DEXCOM G7 [...] and at bedtime. lancets (ACCU-CHEK SOFTCLIX LANCETS) [facility] Use to test blood sugar up to 4 times a day. methocarbamoL (ROBAXIN) 500 MG tablet Take 1 tablet (500 mg total) by mouth 3 times a day. mycophenolate (CELLCEPT) 250 mg capsule Take 2 capsules (500 mg total) by mouth 2 times a day. naloxone (NARCAN) 4 mg/actuation [place] Apply 1 spray in one nostril [...] 88 8 97 % 10/27/24 1415 (!) /31 -- -- -- 100 % 10/27/24 1414 [...] CKD IIIb/IV: - Presumed s/t HRS - Tool Dresser: Yovanny Curran at [facility] Allograft Function: S/p SLK 10/25- (kidney [...] 10/27/2024 1500 Gross per 24 hour Intake 74472.28 ml Output 5950 ml Net 6403.28 ml Heme/Anemia: WBC: 5.8 Goal HgB 10-12 mg/dL Hgb: 7.5 Plt 50 Iron: 128 on 10/25/2024 Ferritin 623.2 on 10/25/2024 TIBC: SEE COMMENT on 10/25/2024 % Iron Saturation: SEE COMMENT on 10/25/2024 UtenjhzL00: No results found for requested labs within [...] - Monitor renal function. No indications for PLANT CLERK. Good UOP - Noted KT US WNL [...] preliminary until attending attestation. Lauren Santos, DNP, CONFERENCE SERVICE COORDINATOR, FRACTIONATION SUPERVISOR- Transplant Nephrology [phone] Preferred contact: secure chat [1] Allergies Allergen [...] Gonzalez MD, MEd, FASN * Marcellus Hebert, PRIVATE INVESTIGATOR, DOOR TO DOOR SALESPERSON - 10/27/2024 10:21 AM EDT HEALTH Care Management/Social Work Assessment Patient Information Patient Name: Blair Gilbert Hospital Day: 2 Inpatient/Observation: Inpatient Admit Date: 10/25/2024 Admission Diagnosis: Liver transplant recipient (CMS-HCC) [Z94.4] Attending provider: Harvey Domínguez III, MD PCP: Enedina Mcguire NP Home Pharmacy: [facility] [address], [place] - [address] [address] [address] [facility] [address] [facility] [address] Issues related to obtaining medications: N/A Payor Information Medical Insurance Coverage: Payor: [facility] / Plan: [facility] GLOBAL / Product Type: *No Producttype* [...] History: 12 weeks of CD Treatement at [facility] Do you need Substance Abuse Treatment [...] Was any abuse reported by patient?: No [place] Status & Connection to [facility] [place] Status & Connection to [place] Services Are you a ?: No Support Systems Emergency contact: Extended Emergency Contact Information Primary Emergency Contact: Abdiaziz Gilbert (next of kin) Mobile Relation: Spouse Secondary Emergency Contact: brown gilbert Mobile Relation: Brother Support Systems Primary Caregiver: Self Marital Status: Relative Search Completed: No Demographics Correct:: Yes Next of Kin: Abdiaziz Carringtonen Next of Kin Relationship: Spouse Next of [...] resides with his spouse at their [place] [address] in [place]. 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 Patient's LNOK:Spouse, Abdiaziz Gilbert, Patient has no current or past history of suicidal/homicidal ideation. Patient has a history of mental health diagnoses, PTSD and Generalized Anxiety Disorder. Patient is connected with TransplantPsychiatrist and prescribed Prozac. Patient has a history of alcohol use and has completed 12 weeksof CD Treatment at [facility]. Spouse explained that he will complete a 6 month virtual program post transplant but could not recall the name of the program. Patient has no current tobacco use. No previous need or recommendation for home health care services and no previous placements at residential facility and/or inpatient rehab program. Patient has [...] as appropriate. NUBIA Escalera, RONALDO Phone Number: [phone] * John Moreno MD - 10/26/2024 3:41 AM EDT SURGICAL ICU CONSULT NOTE 10/26/2024 3:41 AM Name: Blair Gilbert CSN: [id number] HPI: Blair Gilbert is a 39 y.o. [...] at 9:00 PM naloxone (NARCAN) 4 mg/actuation [place] Apply 1 spray in one nostril [...] % 250 mL infusion 2.5 mcg/min (10/26/24 0339) insulin regular in [...] input(s): PHART , PCO2 , PO2ART , BCX0TSD , BEART in the last 72 hours. [...] at baseline or with provocation, shows no ojwch-cw-nnlx atrial level shunt. - Pulmonary arteries: Systolic [...] Exam: Abdomen soft, ND, TAC Recent Labs 10/25/242216 ALKPHOS 144* ALT 23 AST 51* BILITOT [...] IV pantoprazole while intubated, NPO Last BM: STAPLE PROCESSING MACHINE OPERATOR Bowel regimen: Senna/Miralax when able Nausea: Zofran PRN FLUID/ELECTROLYTES Recent Labs 10/25/242216 NA 137 K 2.1* CL 100 CO2 20* BUN 74* CREATININE 3.87* CALCIUM 9.3 PHOS 5.9* GLUCOSE 114* Intake/Output Summary (Last 24 hours) at 10/26/2024 0341 Last data filed at 10/26/2024 0326 Gross per 24 hour Intake 65896 ml Output 675 ml Net 28275 ml IV Fluids: EPINEPHrine (ADRENALIN) 10 mg in sodium chloride 0.9 % 250 mL infusion, Last Rate: 2.5 mcg/min (10/26/24 9724) insulin regular in 0.9 % sodium chloride norepinephrine, Last Rate: 18 mcg/min (10/26/24 4043) vasopressin, Last Rate: 0.04 Units/min (10/26/24 0244) [...] results for input(s): TEGANGLE , TEGKTIME , ZYPIESXO04 , TEGMAXAMPL , TEGRTIME , CBMZ in [...] in sodium chloride 0.9% 100 mL IVPB (Dxmc4Wrl) 2 g Every 6 hours 10/26/2024 -- Admin Instructions: Use Mmtg6Bco Adapter - Mix Thoroughly Before Administration Notes to Pharmacy: On money order clerk estimated creatinine clearance is 35.9 mL/min (A) (based on SCr of 3.87 mg/dL (H)). Route: Intravenous AMPicillin 2 g in sodium chloride 0.9% 100 mL IVPB (Zdxp2Pej) 2 g Once 10/26/2024 -- Admin Instructions: Use Vwjh4Sar Adapter - Mix Thoroughly Before Administration Notes to Pharmacy: On money order clerk estimated creatinine clearance is 35.9 mL/min (A) (based on SCr of 3.87 mg/dL (H)). Route: Intravenous cefTRIAXone (ROCEPHIN) 2 g in sodium chloride 0.9 % 100 mL Fajy9Tfi (Completed) 2 g Once 10/25/2024 10/26/2024 Admin Instructions: Use Jbrl2Yvx Adapter - Mix Thoroughly Before Administration Route: [...] Days Peripheral IV 10/25/24 Anterior;Distal;Left Upper arm 10/25/240 Upper arm less than 1 Arterial Line [...] 47 (H) 10/26/2024 PO2ART 127 (H) 10/26/2024 COV5UDG 21 (L) 10/26/2024 BEART -5.4 (L) 10/26/2024 RNU0MOI 94.6 (L) 10/26/2024 F4YPTFRC 98 10/26/2024 P:F ratio = 363 CARDIOVASCULAR: [...] Arterial line? Yes ACTIVE DRAINS: Urinary Catheter? Berkowizt - Reason: Adequate I/O DVT Prophylaxis: Subcutaneous [...] Acute Care Surgery, and Surgical Critical Care [facility] Academic Office [phone] For Transfers, call [phone] documented in this encounter Nursing Notes * [...] Escalera, RONALDO - 10/31/2024 11:34 AM EDT [facility] Case Management/Social Work Department Progress Note [...] disease. PCP: Enedina Mcguire NP Home Pharmacy: [facility] [address] [address] [facility] [address] [facility] [address] [facility] [place] [address] [place] [address] Medical Insurance Coverage: Payor: [employer] CARE / Plan: [employer] / Product Type: *No Product type* / Other Pertinent Information SW received report from Transplant medical team. SW completed chart review. Per report patient is not medically ready to discharge. Patient recommended for home PT/OT and 2x weekly labs. SW followed up on HHC referrals and submitted a few more HHC referrals. Update: SW made nurse educator aware that there were no accepting C agencies([facility], [facility], [facility]) and patient would need to outpatient for PT/OT and labs. Discharge Plan Anticipated discharge plan: Home with HHC vs Home with outpatient Anticipated discharge date: 11/01 CM/SW will continue to follow and remain available for discharge planning needs. NUBIA Escalera, RONALDO Cell [phone] * Plan of Care - Paulette Flannery [...] Citlaly Nova - 10/29/2024 1:53 PM EDT [facility] Case Management/Social Work Department Progress Note [...] disease. PCP: Enedina Mcguire NP Home Pharmacy: [facility] [address] [place] [address] [address] [facility] [address] [facility] [address] [facility] [place] - [place] [address] [place] [address] [facility] [address] Medical Insurance Coverage: Payor: [facility] CARE / Plan: [facility] / Product Type: *No Product type* [...] SW submitted blanket HHC referral to [facility] [employer] [facility], [facility], [facility], and [facility]. Awaiting responses. SW to followpending clearance home [...] for discharge planning needs. Citlaly Nova MSW, DOOR TO DOOR SALESPERSON Inpatient Support Services Specialist/Care Coordination [phone] * Plan of Care - Soco Yap [...] Escalera, RONALDO - 10/28/2024 2:29 PM EDT [facility] Case Management/Social Work Department Progress Note [...] disease. PCP: Enedina Mcguire NP Home Pharmacy: [facility] [address] [facility] [facility] [address] [facility] [address] [facility] [address] [facility] [place] - [place] - [address] [place] [place] [address] Medical Insurance Coverage: Payor: [facility] / Plan: [employer] [...] discharge planning needs. NUBIA Escalera, RONALDO Cell [phone] * Plan of Care - Elaine Carrillo [...] at all times. Outcome: Completed Problem: Non-violent, auh-ovuv-wjilorimgtq restraints Description: Less restrictive alternative interventions will [...] protection of medical procedures, or protection of anesthesiology medical doctor access. Outcome: Completed * Plan of Care [...] foods as appropriate. Outcome: Progressing Problem: Non-violent, ysq-wick-zdrdoftpgrj restraints Description: Less restrictive alternative interventions will [...] protection of medical procedures, or protection of anesthesiology medical doctor access. Outcome: Progressing * Plan of Care - Shanel Shen RN - 10/27/2024 9:00 AM EDT Problem: Non-violent, tfo-hkav-gqfsoevqrvu restraints Description: Less restrictive alternative interventions will [...] - 10/26/2024 7:41 PM EDT Problem: Non-violent, fvv-mxja-jtqdxxystpz restraints Description: Less restrictive alternative interventions will [...] protection of medical procedures, or protection of anesthesiology medical doctor access. Outcome: Not Progressing Patient in bilateral [...] restraint flowsheet for further documentation. Problem: Non-violent, odt-ydhv-ehgtchuizlf restraints Description: Less restrictive alternative interventions will [...] protection of medical procedures, or protection of anesthesiology medical doctor access. Outcome: Progressing * Plan of Care [...] Encounter [facility] ENDOSCOPY [address] [place] [id number] Chris Orosco MD [address] [place] [phone] 12/05/2024 8:01 AM EDT - 12/05/2024 8:31 AM EDT Surgery [facility] ENDOSCOPY [address] [place] [id number] Chris Orosco MD [address] [place] [address] EGD Pending Results Name Type Priority Associated Diagnoses Date /Time Fungus culture Microbiology Routine 10/28/19 2:15 AM EDT Scheduled Orders Name Type Priority Associated Diagnoses [...] Upon Ordering for 1 Occurrences starting 10/27/2024 Scheduled Procedures Name Priority Associated Diagnoses Date/Ti [...] Routine 10/31/2024 11:59 AM EDT US DUPLEX FWT-ZYCIVI-FTDDVPI COMPLETE Routine 10/31/2024 10:19 AM EDT US [...] Routine 10/28/2024 5:31 PM EDT US DUPLEX FEF-HZLRGL-BQLWDPQ COMPLETE STAT 10/28/2024 4:23 PM EDT US [...] Routine 10/27/2024 10:00 AM EDT US DUPLEX SRE-KNRVQW-RPRWQYG COMPLETE STAT 10/27/2024 9:51 AM EDT US [...] EDT Acute kidney injury superimposed on CKD ([facility]) HI RENAL ALTRNSPLJ IMPLTJ GRF W/BACK JOINER NEPHRECTOMY 10/27/2024 2:32 AM EDT Acute kidney injury superimposed on CKD ([facility]) 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 smith [...] - 100 mg/dL 11/02/2024 5:45 PM EDT [facility] Blood 11/02/2024 5:44 PM EDT 11/02/2024 5:45 PM EDT us Harvey Domínguez III, MD POINT OF CARE TEST ORDERABLES Final Result Performing Organization Address City/[facility]/ZIP Co de Phone Number [facility] [address] [facility]. [address] * (ABNORMAL) POC Glucose Monitoring Device (11/02/2024 3:34 PM EDT) POC Glucose Monitoring Device 208(H) 70 - 100 mg/dL 11/02/2024 3:35 PM EDT [facility] Blood 11/02/2024 3:34 PM EDT 11/02/2024 3:35 PM EDT us Harvey Domínguez III, MD POINT OF CARE TEST ORDERABLES Final Result Performing Organization Address [facility] Co de Phone Number [facility] [address] [facility]. [address] * (ABNORMAL) POC Glucose Monitoring Device (11/02/2024 1:18 PM EDT) POC Glucose Monitoring Device 225(H) 70 - 100 mg/dL 11/02/2024 1:19 PM EDT [facility] Blood 11/02/2024 1:18 PM EDT 11/02/2024 1:19 PM EDT us Harvey Domínguez III, MD POINT OF CARE TEST ORDERABLES Final Result Performing Organization Address City/[facility]/ZIP Co de Phone Number [facility] [address] [facility]. [address] * (ABNORMAL) POC Glucose Monitoring Device (11/02/2024 8:59 AM EDT) POC Glucose Monitoring Device 129(H) 70 - 100 mg/dL 11/02/2024 9:00 AM EDT [facility] Blood 11/02/2024 8:59 AM EDT 11/02/2024 9:00 AM EDT Harvey Domínguez III, MD POINT OF CARE TEST ORDERABLES Final Result Performing Organization Address [facility] Co de Phone Number [facility] [address] [place] [address] * Tacrolimus level (11/02/2024 5:53 AM EDT) Pathologist [facility] Tacrolimus (LC-MS) 7.4 3.0 - 15.0 ng/mL 11/02/2024 2:23 PM EDT [facility] Comment:Performed via liquid chromatography tandem mass spectrometry. Detection limit: 1 ng/mL. Individual target concentrations may vary due to target organ and time after transplant. This test has been developed and its performance characteristics determined by [facility] which is certified under the [...] 5:53 AM EDT 11/02/2024 6:12 AM EDT Hillary Fernandes PharmD LAB BLOOD ORDERABLES Denisse l Result Performing Organization Address City/[facility] Co de Phone Number [facility] [address] [facility]. [address] * (ABNORMAL) Renal Function Panel w/EGFR (11/02/2024 5:53 AM EDT) Sodium 140 133 - 146 mmol/L 11/02/2024 6:47 AM EDT [facility] Potassium 3.3(L) 3.5 - 5.3 mmol/L 11/02/2024 6:47 AM EDT [facility] Chloride 107 98 - 110 mmol/L 11/02/2024 6:47 AM EDT [facility] CO2 25 21 - 33 mmol/L 11/02/2024 6:47 AM EDT [facility] Anion Gap 8 3 - 16 mmol/L 11/02/2024 6:47 AM EDT [facility] BUN 31(H) 7 - 25 mg/dL 11/02/2024 6:47 AM EDT [facility] Creatinine 1.08 0.60 - 1.30 mg/dL 11/02/2024 6:47 AM EDT [facility] Glucose 150(H) 70 - 100 mg/dL 11/02/2024 6:47 AM EDT [facility] Calcium 7.8(L) 8.6 - 10.3 mg/dL 11/02/2024 6:47 AM EDT [facility] Phosphorus 2.0(L) 2.1 - 4.7 mg/dL 11/02/2024 6:47 AM EDT [facility] Albumin 3.2(L) 3.5 - 5.7 g/dL 11/02/2024 6:47 AM EDT [facility] Osmolality, Calculated 299 278 - 305 mOsm/kg 11/02/2024 6:47 AM EDT [facility] EGFR 88 11/02/2024 6:47 AM EDT [facility] Comment:As of 2021, the estimated [...] EDT 11/02/2024 6:12 AM EDT Beata Horner EDGE PLUGGER LAB BLOOD ORDERABLES Denisse l Result [facility] [address] [facility]. [address] * (ABNORMAL) Magnesium (11/02/2024 5:53 AM EDT) Magnesium 1.3(L) 1.5 - 2.5 mg/dL 11/02/2024 6:47 AM EDT [facility] Plasma 11/02/2024 5:53 AM EDT 11/02/2024 6:12 AM EDT Beata Horner [facility] LAB BLOOD ORDERABLES Denisse l Result Performing Organization Address [facility] Co de Phone Number [facility] [address] * (ABNORMAL) Hepatic Function Panel (11/02/2024 5:53 AM EDT) Total Bilirubin 1.6(H) 0.0 - 1.5 mg/dL 11/02/2024 6:47 AM EDT [facility] Bilirubin, Direct 0.81(H) 0.00 - 0.40 mg/dL 11/02/2024 6:47 AM EDT [facility] AST 30 13 - 39 U/L 11/02/2024 6:47 AM EDT [facility] ALT 66(H) 7 - 52 U/L 11/02/2024 6:47 AM EDT [facility] Alkaline Phosphatase 126(H) 36 - 125 U/L 11/02/2024 6:47 AM EDT [facility] Total Protein 4.6(L) 6.4 - 8.9 g/dL 11/02/2024 6:47 AM EDT [facility] Albumin 3.2(L) 3.5 - 5.7 g/dL 11/02/2024 6:47 AM EDT [facility] Bilirubin, Indirect 0.79 0.00 - 1.10 mg/dL 11/02/2024 6:47 AM EDT [facility] Plasma 11/02/2024 5:53 AM EDT 11/02/2024 6:12 AM EDT Beata Dada Bessn EDGE PLUGGER LAB BLOOD ORDERABLES Denisse l Result [facility] [address] [facility]. [address] * (ABNORMAL) CBC (11/02/2024 5:53 AM EDT) WBC 5.8 3.8 - 10.8 10E3/uL 11/02/2024 6:21 AM EDT [facility] RBC 3.12(L) 4.20 - 5.80 10E6/uL 11/02/2024 6:21 AM EDT [facility] Hemoglobin 9.2(L) 13.2 - 17.1 g/dL 11/02/2024 6:21 AM EDT [facility] Hematocrit 27.5(L) 38.5 - 50.0 % 11/02/2024 6:21 AM EDT [facility] MCV 87.9 80.0 - 100.0 fL 11/02/2024 6:21 AM EDT [facility] MCH 29.5 27.0 - 33.0 pg 11/02/2024 6:21 AM EDT [facility] MCHC 33.5 32.0 - 36.0 g/dL 11/02/2024 6:21 AM EDT [facility] RDW 17.5(H) 11.0 - 15.0 % 11/02/2024 6:21 AM EDT [facility] Platelets 61(L) 140 - 400 10E3/uL 11/02/2024 6:21 AM EDT [facility] MPV 7.9 7.5 - 11.5 fL 11/02/2024 6:21 AM EDT [facility] Whole Blood 11/02/2024 5:53 AM EDT 11/02/2024 6:12 AM EDT [facility] D[facility] Horner [facility] LAB BLOOD ORDERABLES Denisse l Result [facility] [address] * (ABNORMAL) POC Glucose Monitoring Device (11/01/2024 9:26 PM EDT) POC Glucose Monitoring Device 199(H) 70 - 100 mg/dL 11/01/2024 9:27 PM EDT [facility] Blood 11/01/2024 9:26 PM EDT 11/01/2024 9:27 PM EDT Harvey Domínguez III, MD POINT OF CARE TEST ORDERABLES Final Result Performing Organization Address City/[facility]/ZIP Co de Phone Number [facility] [address] [facility]. [address] * (ABNORMAL) POC Glucose Monitoring Device (11/01/2024 5:04 PM EDT) POC Glucose Monitoring Device 255(H) 70 - 100 mg/dL 11/01/2024 5:05 PM EDT [facility] Blood 11/01/2024 5:04 PM EDT 11/01/2024 5:05 PM EDT Harvey Domínguez III, MD POINT OF CARE TEST ORDERABLES Final Result Performing Organization Address [facility] Co de Phone Number [facility] [address] * (ABNORMAL) Renal Function Panel w/EGFR, STAT (11/01/2024 2:17 PM EDT) Sodium 139 133 - 146 mmol/L 11/01/2024 3:10 PM EDT [facility] Potassium 3.3(L) 3.5 - 5.3 mmol/L 11/01/2024 3:10 PM EDT [facility] Chloride 107 98 - 110 mmol/L 11/01/2024 3:10 PM EDT [facility] CO2 24 21 - 33 mmol/L 11/01/2024 3:10 PM EDT [facility] Anion Gap 8 3 - 16 mmol/L 11/01/2024 3:10 PM EDT [facility] BUN 35(H) 7 - 25 mg/dL 11/01/2024 3:10 PM EDT [facility] Creatinine 1.22 0.60 - 1.30 mg/dL 11/01/2024 3:10 PM EDT [facility] Glucose 203(H) 70 - 100 mg/dL 11/01/2024 3:10 PM EDT [facility] Calcium 8.3(L) 8.6 - 10.3 mg/dL 11/01/2024 3:10 PM EDT [facility] Phosphorus 2.2 2.1 - 4.7 mg/dL 11/01/2024 3:10 PM EDT [facility] Albumin 3.4(L) 3.5 - 5.7 g/dL 11/01/2024 3:10 PM EDT [facility] Osmolality, Calculated 302 278 - 305 mOsm/kg 11/01/2024 3:10 PM EDT [facility] EGFR 76 11/01/2024 3:10 PM EDT [facility] Comment:As of 2021, the estimated [...] Marks MD LAB BLOOD ORDERABLES Final Result [facility] [address] [facility]. [place] [id number], [facility] * X-ray Portable Abdomen AP view [...] - 100 mg/dL 11/01/2024 12:23 PM EDT [facility] Blood 11/01/2024 12:2 2 PM EDT 11/01/2024 12:23 PM EDT Harvey Domínguez III, MD POINT OF CARE TEST ORDERABLES Final Result Performing Organization Address City/[facility] Co de Phone Number [address] * (ABNORMAL) POC Glucose Monitoring Device (11/01/2024 8:50 AM EDT) POC Glucose Monitoring Device 175(H) 70 - 100 mg/dL 11/01/2024 8:51 AM EDT [facility] Blood 11/01/2024 8:50 AM EDT 11/01/2024 8:51 AM EDT Harvey Domínguez III, MD POINT OF CARE TEST ORDERABLES Final Result Performing Organization Address [facility] de Phone Number [facility] [address] [place] [address]. [address] * Tacrolimus level (11/01/2024 6:01 AM EDT) Pathologist [facility] Tacrolimus (LC-MS) 7.5 3.0 - 15.0 ng/mL 11/01/2024 12:14 PM EDT [facility] Comment:Performed via liquid chromatography tandem mass spectrometry. Detection limit: 1 ng/mL. Individual target concentrations may vary due to target organ and time after transplant. This test has been developed and its performance characteristics determined by [facility] which is certified under the [...] AM EDT 11/01/2024 6:19 AM EDT Hillary Yanqui PharmD LAB BLOOD ORDERABLES Denisse l Result [facility] [address] [place] [address], [facility] * (ABNORMAL) Renal Function Panel w/EGFR (11/01/2024 6:01 AM EDT) Sodium 139 133 - 146 mmol/L 11/01/2024 6:57 AM EDT [facility] Potassium 3.3(L) 3.5 - 5.3 mmol/L 11/01/2024 6:57 AM EDT [facility] Chloride 108 98 - 110 mmol/L 11/01/2024 6:57 AM EDT [facility] CO2 22 21 - 33 mmol/L 11/01/2024 6:57 AM EDT [facility] Anion Gap 9 3 - 16 mmol/L 11/01/2024 6:57 AM EDT [facility] BUN 37(H) 7 - 25 mg/dL 11/01/2024 6:57 AM EDT [facility] Creatinine 1.30 0.60 - 1.30 mg/dL 11/01/2024 6:57 AM EDT [facility] Glucose 163(H) 70 - 100 mg/dL 11/01/2024 6:57 AM EDT [facility] Calcium 8.2(L) 8.6 - 10.3 mg/dL 11/01/2024 6:57 AM EDT [facility] Phosphorus 2.9 2.1 - 4.7 mg/dL 11/01/2024 6:57 AM EDT [facility] Albumin 3.1(L) 3.5 - 5.7 g/dL 11/01/2024 6:57 AM EDT [facility] Osmolality, Calculated 300 278 - 305 mOsm/kg 11/01/2024 6:57 AM EDT [facility] EGFR 71 11/01/2024 6:57 AM EDT [facility] Comment:As of 2021, the estimated [...] AM EDT 11/01/2024 6:20 AM EDT Beata Garland Evens [facility] BLOOD ORDERABLES Denisse l Result Performing Organization Address City/[facility]/ZIP Co de Phone Number [facility] [address] [facility]. [address] * Magnesium (11/01/2024 6:01 AM EDT) Magnesium 1.5 1.5 - 2.5 mg/dL 11/01/2024 6:57 AM EDT [facility] Plasma 11/01/2024 6:01 AM EDT 11/01/2024 6:20 AM EDT [facility] BLOOD ORDERABLES Denisse l Result Performing Organization Address City/[facility]/ZIP Co de Phone Number [facility] [address] [facility]. [address] * (ABNORMAL) Hepatic Function Panel (11/01/2024 6:01 AM EDT) Total Bilirubin 2.0(H) 0.0 - 1.5 mg/dL 11/01/2024 6:57 AM EDT [facility] Bilirubin, Direct 1.06(H) 0.00 - 0.40 mg/dL 11/01/2024 6:57 AM EDT [facility] AST 21 13 - 39 U/L 11/01/2024 6:57 AM EDT [facility] ALT 62(H) 7 - 52 U/L 11/01/2024 6:57 AM EDT [facility] Alkaline Phosphatase 114 36 - 125 U/L 11/01/2024 6:57 AM EDT [facility] Total Protein 4.6(L) 6.4 - 8.9 g/dL 11/01/2024 6:57 AM EDT [facility] Albumin 3.1(L) 3.5 - 5.7 g/dL 11/01/2024 6:57 AM EDT [facility] Bilirubin, Indirect 0.94 0.00 - 1.10 mg/dL 11/01/2024 6:57 AM EDT [facility] Plasma 11/01/2024 6:01 AM EDT 11/01/2024 6:20 AM EDT Beata Horner [facility] BLOOD ORDERABLES Denisse valle Result [facility] [address] [place] [address], [facility] * (ABNORMAL) CBC (11/01/2024 6:01 AM EDT) WBC 5.9 3.8 - 10.8 10E3/uL 11/01/2024 6:29 AM EDT [facility] RBC 3.19(L) 4.20 - 5.80 10E6/uL 11/01/2024 6:29 AM EDT [facility] Hemoglobin 9.5(L) 13.2 - 17.1 g/dL 11/01/2024 6:29 AM EDT [facility] Hematocrit 27.8(L) 38.5 - 50.0 % 11/01/2024 6:29 AM EDT [facility] MCV 87.1 80.0 - 100.0 fL 11/01/2024 6:29 AM EDT [facility] MCH 29.9 27.0 - 33.0 pg 11/01/2024 6:29 AM EDT [facility] MCHC 34.3 32.0 - 36.0 g/dL 11/01/2024 6:29 AM EDT [facility] RDW 17.4(H) 11.0 - 15.0 % 11/01/2024 6:29 AM EDT [facility] Platelets 56(L) 140 - 400 10E3/uL 11/01/2024 6:29 AM EDT [facility] MPV 8.3 7.5 - 11.5 fL 11/01/2024 6:29 AM EDT [facility] Whole Blood 11/01/2024 6:01 AM EDT 11/01/2024 6:19 AM EDT Beata Horner [facility] BLOOD ORDERABLES Denisse l Result [facility] [address] [facility]. [address] * (ABNORMAL) POC Glucose Monitoring Device (10/31/2024 9:15 PM EDT) POC Glucose Monitoring Device 171(H) 70 - 100 mg/dL 10/31/2024 9:15 PM EDT [facility] Blood 10/31/2024 9:15 PM EDT 10/31/2024 9:15 PM EDT us Harvey Domínguez III, MD POINT OF CARE TEST ORDERABLES Final Result Performing Organization Address [facility]/ZIP Co de Phone Number [facility] [address] [facility]. [address] * (ABNORMAL) POC Glucose Monitoring Device (10/31/2024 5:56 PM EDT) POC Glucose Monitoring Device 179(H) 70 - 100 mg/dL 10/31/2024 5:57 PM EDT [facility] Blood 10/31/2024 5:56 PM EDT 10/31/2024 5:57 PM EDT Harvey Domínguez III, MD POINT OF CARE TEST ORDERABLES Final Result [facility] [address] [facility]. [address] * CT Abdomen and Pelvis WO [...] Adrenal gland: No focal nodule seen. Kidneys: [place] kidneys noted with nonobstructing calcifications on the right. Findings of postsurgical changes in the left [place] kidney. Mild right hydronephrosis without an obstructive [...] Adrenal gland: No focal nodule seen. Kidneys: [place] kidneys noted with nonobstructing calcifications on theright. Findings of postsurgical changes in the left [place] kidney. Mildright hydronephrosis without an obstructive course [...] Hollis MD at 10/31/2024 4:38 PM EDT us Sveta Judge MD IMG CT ORDERABLES Final Result * ECG 12-lead (MUSE) (10/31/2024 3:42 PM EDT) 10/31/2024 3:42 PM EDT Narrative MUSE - 11/02/2024 6:56 AM EDT Ventricular Rate: 78 BPM Atrial Rate: 78 BPM P-R Interval: 166 ms QRS Duration: 88 ms QT: 400 ms QTc: 456 ms P [place]: 49 degrees R [place]: 3 degrees T [place]: 14 degrees Diagnosis Line: NORMAL SINUS RHYTHM ^ NORMAL ECG ^ ^ Confirmed by MD REID JAMES ([id number]) on 11/02/2024 6:56:52 AM Priti Geiger [employer] ECG ORDERABLES Final Result MUSE * (ABNORMAL) Urinalysis w/Rfl to Microscopic (10/31/2024 1:18 PM EDT) Color, UA Straw Yellow,Straw 10/31/2024 1:46 PM EDT [facility] Clarity, UA Clear Clear 10/31/2024 1:46 PM EDT [facility] Specific [place], UA 1.013 1.005 - 1.035 10/31/2024 1:46 PM EDT [facility] pH, UA 6.5 5.0 - 8.0 10/31/2024 1:46 PM EDT [facility] Protein, UA Negative Negative mg/dL 10/31/2024 1:46 PM EDT [facility] Glucose, UA Negative Negative mg/dL 10/31/2024 1:46 PM EDT [facility] Ketones, UA Negative Negative mg/dL 10/31/2024 1:46 PM EDT [facility] Bilirubin, UA Negative Negative 10/31/2024 1:46 PM EDT [facility] Blood, UA Large(A) Negative 10/31/2024 1:46 PM EDT [facility] Nitrite, UA Negative Negative 10/31/2024 1:46 PM EDT [facility] Urobilinogen, UA <2.0 0.2 - 1.9 mg/dL 10/31/2024 1:46 PM EDT [facility] Leukocyte Esterase, UA Negative Negative 10/31/2024 1:46 PM EDT [facility] RBC, UA >100(H) 0 - 3 /HPF 10/31/2024 1:46 PM EDT [facility] WBC, UA 3 0 - 5 /HPF 10/31/2024 1:46 PM EDT [facility] Hyaline Casts, UA 3(H) 0 - 2 /LPF 10/31/2024 1:46 PM EDT [facility] Urine 10/31/2024 1:18 PM EDT 10/31/2024 1:32 PM EDT Priti Geiger CNP URINE ORDERABLES Final Result Performing Organization Address City/[facility]/ZIP Co de Phone Number [facility] [address] * (ABNORMAL) Post Kidney Transplant Urine Culture (10/31/2024 1:18 PM EDT) Culture Result Enterococcus faecium, Vancomycin Resistant(A) [facility] Comment: 1,000- <10,000 cfu/mL Identified [...] [facility] [place]/ZIP Co de Phone Number [facility] [address] [facility]. [address] * (ABNORMAL) POC Glucose Monitoring Device (10/31/2024 11:59 AM EDT) POC Glucose Monitoring Device 130(H) 70 - 100 mg/dL 10/31/2024 12:21 PM EDT [facility] Blood 10/31/2024 11:5 9 AM EDT 10/31/2024 12:21 PM EDT Harvey Domínguez III, MD POINT OF CARE TEST ORDERABLES Final Result [facility] [address] [place] [id number], [facility] * US Abdomen Limited (10/31/2024 10:19 AM [...] EXAM: US ABDOMEN LIMITED EXAM: US DUPLEX [id number] COMPLETE INDICATION: Post-op liver transplant COMPARISON: None [...] visualized secondary to poor acoustic windows. The pamunkey right kidney measures 11.6 cm in length. [...] EXAM: US ABDOMEN LIMITED EXAM: US DUPLEX [id number] COMPLETE INDICATION: Post-op liver transplant COMPARISON: None [...] well visualized secondary to poor acousticwindows. The pam[place]key right kidney measures 11.6 cm in length. [...] at 10/31/2024 10:35 AM EDT Beata Horner [facility] US ORDERABLES Final R esult * US [...] 10/31/2024 10:29 AM EDT us Beata Horner [employer] IMG US ORDERABLES Final R esult * US Duplex Qdf-Iyr-Awtgrea Comp (10/31/2024 10:19 AM EDT) Anatomical Region [...] EXAM: US ABDOMEN LIMITED EXAM: US DUPLEX [id number] COMPLETE INDICATION: Post-op liver transplant COMPARISON: None [...] visualized secondary to poor acoustic windows. The pam[place]key right kidney measures 11.6 cm in length. [...] EXAM: US ABDOMEN LIMITED EXAM: US DUPLEX [id number] COMPLETE INDICATION: Post-op liver transplant COMPARISON: None [...] well visualized secondary to poor acousticwindows. The pamunkey right kidney measures 11.6 cm in length. [...] at 10/31/2024 10:35 AM EDT Beata Horner [facility] US ORDERABLES Final R esult * ECG 12-lead (MUSE) (10/31/2024 8:57 AM EDT) 10/31/2024 8:57 AM EDT Narrative MUSE - 11/01/2024 9:21 AM EDT Ventricular Rate: 83 BPM Atrial Rate: 83 BPM P-R Interval: 168 ms QRS Duration: 102 ms QT: 392 ms QTc: 460 ms P [place]: 64 degrees R [place]: -18 degrees T [place]: 7 degrees Diagnosis Line: NORMAL SINUS RHYTHM ^ NORMAL ECG ^ ^ Confirmed by MD JOE, OTIS ([id number]) on 11/01/2024 9:21:13 AM Priti Geiger [employer] ECG ORDERABLES Final Result MUSE * (ABNORMAL) POC Glucose Monitoring Device (10/31/2024 8:44 AM EDT) POC Glucose Monitoring Device 145(H) 70 - 100 mg/dL 10/31/2024 8:45 AM EDT [facility] Blood 10/31/2024 8:44 AM EDT 10/31/2024 8:44 AM EDT Harvey Domínguez III, MD POINT OF CARE TEST ORDERABLES Final Result Performing Organization Address [facility] Co de Phone Number [facility] [address] [facility]. [address] * Tacrolimus level (10/31/2024 6:40 AM EDT) Pathologist [facility] Tacrolimus (LC-MS) 8.4 3.0 - 15.0 ng/mL 10/31/2024 10:05 AM EDT [facility] Comment:Performed via liquid chromatography tandem mass spectrometry. Detection limit: 1 ng/mL. Individual target concentrations may vary due to target organ and time after transplant. This test has been developed and its performance characteristics determined by [facility] which is certified under the [...] [facility] [place]/ZIP Co de Phone Number [facility] [address] [facility]. [address] * (ABNORMAL) Renal Function Panel w/EGFR (10/31/2024 6:40 AM EDT) Sodium 141 133 - 146 mmol/L 10/31/2024 8:09 AM EDT [facility] Potassium 3.5 3.5 - 5.3 mmol/L 10/31/2024 8:09 AM EDT [facility] Chloride 111(H) 98 - 110 mmol/L 10/31/2024 8:09 AM EDT [facility] CO2 20(L) 21 - 33 mmol/L 10/31/2024 8:09 AM EDT [facility] Anion Gap 10 3 - 16 mmol/L 10/31/2024 8:09 AM EDT [facility] BUN 54(H) 7 - 25 mg/dL 10/31/2024 8:09 AM EDT [facility] Creatinine 1.75(H) 0.60 - 1.30 mg/dL 10/31/2024 8:09 AM EDT [facility] Glucose 136(H) 70 - 100 mg/dL 10/31/2024 8:09 AM EDT [facility] Calcium 8.7 8.6 - 10.3 mg/dL 10/31/2024 8:09 AM EDT [facility] Phosphorus 4.1 2.1 - 4.7 mg/dL 10/31/2024 8:09 AM EDT [facility] Albumin 3.2(L) 3.5 - 5.7 g/dL 10/31/2024 8:09 AM [facility] Osmolality, Calculated 309(H) 278 - 305 mOsm/kg 10/31/2024 8:09 AM EDT [facility] EGFR 50 10/31/2024 8:09 AM [facility] Comment:As of 2021, the estimated [...] AM EDT 10/31/2024 7:35 AM EDT Beata Bessn [facility] [employer] LAB BLOOD ORDERABLES Denisse l Result Performing Organization Address City/[facility]/ZIP Co de Phone Number [facility] [address] [facility]. [address] * Magnesium (10/31/2024 6:40 AM EDT) Magnesium 1.8 1.5 - 2.5 mg/dL 10/31/2024 8:09 AM EDT [facility] Plasma 10/31/2024 6:40 AM EDT 10/31/2024 7:35 AM EDT [facility] BLOOD ORDERABLES Denisse l Result Performing Organization Address [facility] de Phone Number [facility] [address] [facility]. [address] * (ABNORMAL) Hepatic Function Panel (10/31/2024 6:40 AM EDT) Total Bilirubin 2.7(H) 0.0 - 1.5 mg/dL 10/31/2024 8:09 AM EDT [facility] Bilirubin, Direct 1.57(H) 0.00 - 0.40 mg/dL 10/31/2024 8:09 AM EDT [facility] AST 26 13 - 39 U/L 10/31/2024 8:09 AM EDT [facility] ALT 68(H) 7 - 52 U/L 10/31/2024 8:09 AM EDT [facility] Alkaline Phosphatase 112 36 - 125 U/L 10/31/2024 8:09 AM EDT [facility] Total Protein 4.7(L) 6.4 - 8.9 g/dL 10/31/2024 8:09 AM EDT [facility] Albumin 3.2(L) 3.5 - 5.7 g/dL 10/31/2024 8:09 AM EDT [facility] Bilirubin, Indirect 1.13(H) 0.00 - 1.10 mg/dL 10/31/2024 8:09 AM EDT [facility] Plasma 10/31/2024 6:40 AM EDT 10/31/2024 7:35 AM EDT Beata Horner [facility] LAB BLOOD ORDERABLES Denisse l Result [facility] [address] [place] [address], [facility] * (ABNORMAL) CBC (10/31/2024 6:40 AM EDT) WBC 6.0 3.8 - 10.8 10E3/uL 10/31/2024 8:05 AM EDT [facility] RBC 3.14(L) 4.20 - 5.80 10E6/uL 10/31/2024 8:05 AM EDT [facility] Hemoglobin 9.6(L) 13.2 - 17.1 g/dL 10/31/2024 8:05 AM EDT [facility] Hematocrit 27.5(L) 38.5 - 50.0 % 10/31/2024 8:05 AM EDT [facility] MCV 87.6 80.0 - 100.0 fL 10/31/2024 8:05 AM EDT [facility] MCH 30.7 27.0 - 33.0 pg 10/31/2024 8:05 AM EDT [facility] MCHC 35.0 32.0 - 36.0 g/dL 10/31/2024 8:05 AM EDT [facility] RDW 17.9(H) 11.0 - 15.0 % 10/31/2024 8:05 AM EDT [facility] Platelets 44(L) 140 - 400 10E3/uL 10/31/2024 8:05 AM EDT [facility] Comment: CNV Specimen checked for clots. None detected. MPV 8.9 7.5 - 11.5 fL 10/31/2024 8:05 AM EDT [facility] Whole Blood 10/31/2024 6:40 AM EDT 10/31/2024 7:34 AM EDT Beata Horner [facility] BLOOD ORDERABLES Denisse l Result [facility] [address] [facility]. [address] * (ABNORMAL) POC Glucose Monitoring Device (10/30/2024 9:01 PM EDT) POC Glucose Monitoring Device 144(H) 70 - 100 mg/dL 10/30/2024 9:02 PM EDT [facility] Blood 10/30/2024 9:01 PM EDT 10/30/2024 9:01 PM EDT Harvey Domínguez III, MD POINT OF CARE TEST ORDERABLES Final Result Performing Organization Address City/[facility]/ZIP Co de Phone Number [facility] [address] [facility]. [address] * (ABNORMAL) POC Glucose Monitoring Device (10/30/2024 5:37 PM EDT) POC Glucose Monitoring Device 124(H) 70 - 100 mg/dL 10/30/2024 5:47 PM EDT [facility] Blood 10/30/2024 5:37 PM EDT 10/30/2024 5:47 PM EDT Harvey Domínguez III, MD POINT OF CARE TEST ORDERABLES Final Result [facility] [address] [facility]. [address] * (ABNORMAL) POC Glucose Monitoring Device (10/30/2024 7:26 AM EDT) POC Glucose Monitoring Device 150(H) 70 - 100 mg/dL 10/30/2024 7:27 AM EDT [facility] Blood 10/30/2024 7:26 AM EDT 10/30/2024 7:27 AM EDT Harvey Domínguez III, MD POINT OF CARE TEST ORDERABLES Final Result Performing Organization Address [facility] Co de Phone Number [facility] [address] [facility]. [address] * Tacrolimus level (10/30/2024 7:13 AM EDT) [facility] Tacrolimus (LC-MS) 9.5 3.0 - 15.0 ng/mL 10/30/2024 2:53 PM EDT [facility] Comment:Performed via liquid chromatography tandem mass spectrometry. Detection limit: 1 ng/mL. Individual target concentrations may vary due to target organ and time after transplant. This test has been developed and its performance characteristics determined by [facility] which is certified under the Clinical [...] 7:13 AM EDT 10/30/2024 7:26 AM EDT Priti Geiger [facility] BLOOD ORDERABLES Final Re sult Performing Organization Address City/[facility] Co de Phone Number [facility] [address] [facility]. [address] * ECG 12-lead (MUSE) (10/30/2024 6:51 AM EDT) 10/30/2024 6:51 AM EDT Narrative MUSE - 11/01/2024 9:21 AM EDT Ventricular Rate: 92 BPM Atrial Rate: 92 BPM P-R Interval: 174 ms QRS Duration: 96 ms QT: 376 ms QTc: 464 ms P [place]: 54 degrees R [place]: -24 degrees T [place]: 11 degrees Diagnosis Line: NORMAL SINUS RHYTHM ^ NORMAL ECG ^ ^ Confirmed by MD JOEOTIS ([id number]) on 11/01/2024 9:21:09 AM Priti Geiger [employer] ECG ORDERABLES Final Result MUSE * (ABNORMAL) Renal Function Panel w/EGFR (10/30/2024 5:41 AM EDT) Sodium 140 133 - 146 mmol/L 10/30/2024 6:18 AM EDT [facility] Potassium 3.8 3.5 - 5.3 mmol/L 10/30/2024 6:18 AM EDT [facility] Chloride 111(H) 98 - 110 mmol/L 10/30/2024 6:18 AM EDT [facility] CO2 17(L) 21 - 33 mmol/L 10/30/2024 6:18 AM EDT [facility] Anion Gap 12 3 - 16 mmol/L 10/30/2024 6:18 AM EDT [facility] BUN 62(H) 7 - 25 mg/dL 10/30/2024 6:18 AM EDT [facility] Creatinine 1.96(H) 0.60 - 1.30 mg/dL 10/30/2024 6:18 AM EDT [facility] Glucose 116(H) 70 - 100 mg/dL 10/30/2024 6:18 AM EDT [facility] Calcium 9.0 8.6 - 10.3 mg/dL 10/30/2024 6:18 AM EDT [facility] Phosphorus 4.6 2.1 - 4.7 mg/dL 10/30/2024 6:18 AM EDT [facility] Albumin 3.2(L) 3.5 - 5.7 g/dL 10/30/2024 6:18 AM EDT [facility] Osmolality, Calculated 309(H) 278 - 305 mOsm/kg 10/30/2024 6:18 AM EDT [facility] EGFR 43 10/30/2024 6:18 AM EDT [facility] Comment:As of 2021, the estimated [...] AM EDT 10/30/2024 5:47 AM EDT Beata Garlandbrook Horner [facility] LAB BLOOD ORDERABLES Denisse l Result Performing Organization Address City/[facility]/ZIP Co de Phone Number [facility] [address] [facility]. [address] * Magnesium (10/30/2024 5:41 AM EDT) Magnesium 2.2 1.5 - 2.5 mg/dL 10/30/2024 6:18 AM EDT [facility] Plasma 10/30/2024 5:41 AM EDT 10/30/2024 5:47 AM EDT LoiLoer Evens [facility] BLOOD ORDERABLES Denisse l Result Performing Organization Address City/[facility]/ZIP Co de Phone Number [facility] [address] [facility]. [address] * (ABNORMAL) Hepatic Function Panel (10/30/2024 5:41 AM EDT) Total Bilirubin 3.6(H) 0.0 - 1.5 mg/dL 10/30/2024 6:18 AM EDT [facility] Bilirubin, Direct 1.95(H) 0.00 - 0.40 mg/dL 10/30/2024 6:18 AM EDT [facility] AST 33 13 - 39 U/L 10/30/2024 6:18 AM EDT [facility] ALT 71(H) 7 - 52 U/L 10/30/2024 6:18 AM EDT [facility] Alkaline Phosphatase 80 36 - 125 U/L 10/30/2024 6:18 AM EDT [facility] Total Protein 4.8(L) 6.4 - 8.9 g/dL 10/30/2024 6:18 AM EDT [facility] Albumin 3.2(L) 3.5 - 5.7 g/dL 10/30/2024 6:18 AM EDT [facility] Bilirubin, Indirect 1.65(H) 0.00 - 1.10 mg/dL 10/30/2024 6:18 AM EDT [facility] Plasma 10/30/2024 5:41 AM EDT 10/30/2024 5:47 AM EDT Beata Horner [facility] BLOOD ORDERABLES Denisse valle Result Performing Organization Address City/State/[facility] Co de Phone Number [facility] [address] * (ABNORMAL) CBC (10/30/2024 5:41 AM EDT) WBC 8.1 3.8 - 10.8 10E3/uL 10/30/2024 8:06 AM EDT [facility] RBC 3.29(L) 4.20 - 5.80 10E6/uL 10/30/2024 8:06 AM EDT [facility] Hemoglobin 10.1(L) 13.2 - 17.1 g/dL 10/30/2024 8:06 AM EDT [facility] Hematocrit 28.8(L) 38.5 - 50.0 % 10/30/2024 8:06 AM EDT [facility] MCV 87.6 80.0 - 100.0 fL 10/30/2024 8:06 AM EDT [facility] MCH 30.6 27.0 - 33.0 pg 10/30/2024 8:06 AM EDT [facility] MCHC 34.9 32.0 - 36.0 g/dL 10/30/2024 8:06 AM EDT [facility] RDW 18.1(H) 11.0 - 15.0 % 10/30/2024 8:06 AM EDT [facility] Platelets 44(L) 140 - 400 10E3/uL 10/30/2024 8:06 AM EDT [facility] Comment: CNV Specimen checked for clots. None detected. MPV 8.3 7.5 - 11.5 fL 10/30/2024 8:06 AM EDT [facility] Whole Blood 10/30/2024 5:41 AM EDT 10/30/2024 5:50 AM EDT Beata Horner [facility] BLOOD ORDERABLES Denisse l Result [facility] [address] [facility]. [address] * (ABNORMAL) POC Glucose Monitoring Device (10/29/2024 10:18 PM EDT) POC Glucose Monitoring Device 140(H) 70 - 100 mg/dL 10/29/2024 10:18 PM EDT [facility] Blood 10/29/2024 10:1 8 PM EDT 10/29/2024 10:18 PM EDT Harvey Domínguez III, MD POINT OF CARE TEST ORDERABLES Final Result Performing Organization Address City/[facility]/ZIP Co de Phone Number [facility] [address] [facility]. [address] * (ABNORMAL) POC Glucose Monitoring Device (10/29/2024 6:42 PM EDT) POC Glucose Monitoring Device 152(H) 70 - 100 mg/dL 10/29/2024 6:43 PM EDT [facility] Blood 10/29/2024 6:42 PM EDT 10/29/2024 6:43 PM EDT Harvey Domínguez III, MD POINT OF CARE TEST ORDERABLES Final Result [facility] [address] [facility]. [address] * (ABNORMAL) POC Glucose Monitoring Device (10/29/2024 11:35 AM EDT) POC Glucose Monitoring Device 130(H) 70 - 100 mg/dL 10/29/2024 11:36 AM EDT [facility] Blood 10/29/2024 11:3 5 AM EDT 10/29/2024 11:36 AM EDT Harvey Domínguez III, MD POINT OF CARE TEST ORDERABLES Final Result [facility] [address] * ECG 12 lead (MUSE) (10/29/2024 9:34 AM EDT) 10/29/2024 9:34 AM EDT Narrative MUSE - 10/29/2024 10:34 PM EDT Ventricular Rate: 97 BPM Atrial Rate: 97 BPM P-R Interval: 186 ms QRS Duration: 104 ms QT: 382 ms QTc: 485 ms P [place]: 54 degrees R [place]: -21 degrees T [place]: 1 degrees Diagnosis Line: NORMAL SINUS RHYTHM ^ NORMAL ECG ^ Confirmed by JORGE MACIAS ([id number]) on 10/29/2024 10:34:50 PM Afshan Bear MD ECG ORDERABLES Final Result Performing Organization Address City/[facility]/ZIP Co de Phone Number MUSE * Tacrolimus level (10/29/2024 8:08 AM EDT) Pathologist [facility] Tacrolimus (LC-MS) 10.4 3.0 - 15.0 ng/mL 10/29/2024 2:07 PM EDT [facility] Comment:Performed via liquid chromatography tandem mass spectrometry. Detection limit: 1 ng/mL. Individual target concentrations may vary due to target organ and time after transplant. This test has been developed and its performance characteristics determined by [facility] which is certified under the [...] EDT 10/29/2024 8:21 AM EDT Priti Geiger [facility] BLOOD ORDERABLES Final Re sult [facility] [address] * Prepare RBC, leukoreduced, 1 Units (10/29/2024 6:16 AM EDT) Product Code O5542G41 [facility] Unit Number [id number] [facility] Dispense Status Presumed Transfused_PT [facility] Blood Expiration Date 616619010610 [facility] Coding System [id number] [facility] Blood Bank Product Shay Plata MD BLOOD BANK PRODUCT O RDERABLES Final Result Performing Organization Address City/[facility]/ZIP Co de Phone Number [facility] * Prepare RBC, leukoreduced, 1 Units (10/29/2024 6:15 AM EDT) Product Code X8496Z20 [facility] Unit Number [id number] [facility] Dispense Status Presumed Transfused_PT [facility] Blood Expiration Date [id number] [facility] Coding System [id number] [facility] Blood Bank Product Carlos Marks MD BLOOD BANK PRODUCT ORDERABL ES Final Result [facility] * Prepare RBC, leukoreduced, 1 Units (10/29/2024 6:15 AM EDT) Product Code T7918S16 [facility] Unit Number [id number] [facility] Dispense Status Presumed Transfused_PT [facility] Blood Expiration Date [id number] [facility] Coding System [id number] [facility] Blood Bank Product us John Moreno MD BLOOD BANK PRODUCT ORDERABLE S Final Result [facility] * (ABNORMAL) Renal Function Panel w/EGFR (10/29/2024 5:07 AM EDT) Sodium 144 133 - 146 mmol/L 10/29/2024 5:49 AM EDT [facility] Potassium 3.8 3.5 - 5.3 mmol/L 10/29/2024 5:49 AM EDT [facility] Chloride 113(H) 98 - 110 mmol/L 10/29/2024 5:49 AM EDT [facility] CO2 17(L) 21 - 33 mmol/L 10/29/2024 5:49 AM EDT [facility] Anion Gap 14 3 - 16 mmol/L 10/29/2024 5:49 AM EDT [facility] BUN 57(H) 7 - 25 mg/dL 10/29/2024 5:49 AM EDT [facility] Creatinine 1.93(H) 0.60 - 1.30 mg/dL 10/29/2024 5:49 AM EDT [facility] Glucose 110(H) 70 - 100 mg/dL 10/29/2024 5:49 AM EDT [facility] Calcium 9.3 8.6 - 10.3 mg/dL 10/29/2024 5:49 AM EDT [facility] Phosphorus 4.8(H) 2.1 - 4.7 mg/dL 10/29/2024 5:49 AM EDT [facility] Albumin 3.5 3.5 - 5.7 g/dL 10/29/2024 5:49 AM EDT [facility] Osmolality, Calculated 314(H) 278 - 305 mOsm/kg 10/29/2024 5:49 AM EDT [facility] EGFR 44 10/29/2024 5:49 AM EDT [facility] Comment:As of 2021, the estimated [...] AM EDT 10/29/2024 5:13 AM EDT Beata [place]berrybrook Horner [facility] BLOOD ORDERABLES Denisse l Result Performing Organization Address City/[facility]/ZIP Co de Phone Number [facility] [address] [facility]. [address] * Magnesium (10/29/2024 5:07 AM EDT) Magnesium 2.1 1.5 - 2.5 mg/dL 10/29/2024 5:49 AM EDT [facility] Plasma 10/29/2024 5:07 AM EDT 10/29/2024 5:13 AM EDT [facility] Garland Evens [facility] BLOOD ORDERABLES Denisse l Result Performing Organization Address City/[facility]/ZIP Co de Phone Number [facility] [address] [facility]. [address] * (ABNORMAL) Hepatic Function Panel (10/29/2024 5:07 AM EDT) Total Bilirubin 4.2(H) 0.0 - 1.5 mg/dL 10/29/2024 5:49 AM EDT [facility] Bilirubin, Direct 2.85(H) 0.00 - 0.40 mg/dL 10/29/2024 5:49 AM EDT [facility] AST 31 13 - 39 U/L 10/29/2024 5:49 AM EDT [facility] ALT 88(H) 7 - 52 U/L 10/29/2024 5:49 AM EDT [facility] Alkaline Phosphatase 51 36 - 125 U/L 10/29/2024 5:49 AM EDT [facility] Total Protein 5.2(L) 6.4 - 8.9 g/dL 10/29/2024 5:49 AM EDT [facility] Albumin 3.5 3.5 - 5.7 g/dL 10/29/2024 5:49 AM EDT [facility] Bilirubin, Indirect 1.35(H) 0.00 - 1.10 mg/dL 10/29/2024 5:49 AM EDT [facility] Plasma 10/29/2024 5:07 AM EDT 10/29/2024 5:13 AM EDT us Beata Horner [facility] BLOOD ORDERABLES Denisse l Result [facility] [address] * (ABNORMAL) CBC (10/29/2024 5:07 AM EDT) WBC 7.8 3.8 - 10.8 10E3/uL 10/29/2024 5:38 AM EDT [facility] RBC 3.05(L) 4.20 - 5.80 10E6/uL 10/29/2024 5:38 AM EDT [facility] Hemoglobin 9.0(L) 13.2 - 17.1 g/dL 10/29/2024 5:38 AM EDT [facility] Hematocrit 26.7(L) 38.5 - 50.0 % 10/29/2024 5:38 AM EDT [facility] MCV 87.4 80.0 - 100.0 fL 10/29/2024 5:38 AM EDT [facility] MCH 29.7 27.0 - 33.0 pg 10/29/2024 5:38 AM EDT [facility] MCHC 33.9 32.0 - 36.0 g/dL 10/29/2024 5:38 AM EDT [facility] RDW 18.3(H) 11.0 - 15.0 % 10/29/2024 5:38 AM EDT [facility] Platelets 41(L) 140 - 400 10E3/uL 10/29/2024 5:38 AM EDT [facility] Comment: CNV Specimen checked for clots. None detected. MPV 7.5 7.5 - 11.5 fL 10/29/2024 5:38 AM EDT [facility] Whole Blood 10/29/2024 5:07 AM EDT 10/29/2024 5:13 AM EDT Beata Horner [facility] BLOOD ORDERABLES Denisse l Result [facility] [address] [id number], [facility] * (ABNORMAL) TEG-Bypass/ECMO/Liver HN (Factor function, Platelet/Fibrin Clot Strength w/Clot Breakdown, Heparinase In All Channels) (10/29/2024 5:07 AM EDT) Citrated Kaolin Reaction Time (TEGECMOLIVER) 8.9 4.6 - 9.1 minutes 10/29/2024 7:04 AM EDT [facility] Citrated Kaolin W/Heparinase Reaction Time (TEGECMOLIVER) 7.4 4.3 - 8.3 minutes 10/29/2024 7:04 AM EDT [facility] Citrated Kaolin Maximum Amplitude (TEGECMOLIVER) 52.9 52.0 - 69.0 mm 10/29/2024 7:04 AM EDT [facility] Citrated Functional Fibrinogen W/Heparinase Maximum Amplitude(TEGEC MOLIVER) 20.7 15.0 - 34.0 mm 10/29/2024 7:04 AM EDT [facility] Citrated Rapid Teg W/Heparinase Maximum Amplitude (TEGECMOLIVER) 49.7(L) 53.0 - 69.0 mm 10/29/2024 7:04 AM EDT [facility] Citrated Kaolin w/Heparinase Percent Lysis (TEGECMOLIVER) 0.0 0.0 - 3.2 % 10/29/2024 7:04 AM EDT [facility] Whole Blood (Citrate) 10/29/2024 5:07 AM EDT 10/29/2024 5:10 AM EDT Kemar Sahni MD LAB BLOOD ORDERABLES Final Result [facility] [address] * (ABNORMAL) TEG-Bypass/ECMO/Liver HN (Factor function, Platelet/Fibrin Clot Strength w/Clot Breakdown, Heparinase In All Channels) (10/28/2024 11:55 PM EDT) [facility] Citrated Kaolin Reaction Time (TEGECMOLIVER) 8.6 4.6 - 9.1 minutes 10/29/2024 2:01 AM EDT [facility] Citrated Kaolin W/Heparinase Reaction Time (TEGECMOLIVER) 8.7(H) 4.3 - 8.3 minutes 10/29/2024 2:01 AM EDT [facility] Citrated Kaolin Maximum Amplitude (TEGECMOLIVER) 47.9(L) 52.0 - 69.0 mm 10/29/2024 2:01 AM EDT [facility] Citrated Functional Fibrinogen W/Heparinase Maximum Amplitude(TEGEC MOLIVER) 22.0 15.0 - 34.0 mm 10/29/2024 2:01 AM EDT [facility] Citrated Rapid Teg W/Heparinase Maximum Amplitude (TEGECMOLIVER) 45.9(L) 53.0 - 69.0 mm 10/29/2024 2:01 AM EDT [facility] Citrated Kaolin w/Heparinase Percent Lysis (TEGECMOLIVER) 0.0 0.0 - 3.2 % 10/29/2024 2:01 AM EDT [facility] Whole Blood (Citrate) 10/28/2024 11:55 PM EDT 10/28/2024 11:58 PM EDT Kemar Sahni MD LAB BLOOD ORDERABLES Final Result [facility] [address] [place] [address], [place] * (ABNORMAL) CBC, STAT (10/28/2024 8:04 PM EDT) WBC 3.9 3.8 - 10.8 10E3/uL 10/28/2024 8:36 PM EDT [facility] RBC 2.66(L) 4.20 - 5.80 10E6/uL 10/28/2024 8:36 PM EDT [facility] Hemoglobin 8.0(L) 13.2 - 17.1 g/dL 10/28/2024 8:36 PM EDT [facility] Hematocrit 23.0(L) 38.5 - 50.0 % 10/28/2024 8:36 PM EDT [facility] MCV 86.4 80.0 - 100.0 fL 10/28/2024 8:36 PM EDT [facility] MCH 29.9 27.0 - 33.0 pg 10/28/2024 8:36 PM EDT [facility] MCHC 34.6 32.0 - 36.0 g/dL 10/28/2024 8:36 PM EDT [facility] RDW 18.6(H) 11.0 - 15.0 % 10/28/2024 8:36 PM EDT [facility] Platelets 29(L) 140 - 400 10E3/uL 10/28/2024 8:36 PM EDT [facility] Comment: CNV Specimen checked for clots. None detected. MPV 7.8 7.5 - 11.5 fL 10/28/2024 8:36 PM EDT [facility] Whole Blood 10/28/2024 8:04 PM EDT 10/28/2024 8:14 PM EDT us Carlos Marks MD LAB BLOOD ORDERABLES Final Result [facility] [address] [place] [address], [facility] * (ABNORMAL) POC Glucose Monitoring Device (10/28/2024 8:03 PM EDT) POC Glucose Monitoring Device 122(H) 70 - 100 mg/dL 10/28/2024 8:04 PM EDT [facility] Blood 10/28/2024 8:03 PM EDT 10/28/2024 8:04 PM EDT Harvey Domínguez III, MD POINT OF CARE TEST ORDERABLES Final Result [facility] [address] [place] [address], [facility] * (ABNORMAL) TEG-Bypass/ECMO/Liver HN (Factor function, Platelet/Fibrin Clot Strength w/Clot Breakdown, Heparinase In All Channels) (10/28/2024 6:39 PM EDT) [facility] Citrated Kaolin Reaction Time (TEGECMOLIVER) 9.0 4.6 - 9.1 minutes 10/28/2024 7:50 PM EDT [facility] Citrated Kaolin W/Heparinase Reaction Time (TEGECMOLIVER) 8.3 4.3 - 8.3 minutes 10/28/2024 7:50 PM EDT [facility] Citrated Kaolin Maximum Amplitude (TEGECMOLIVER) 47.6(L) 52.0 - 69.0 mm 10/28/2024 7:50 PM EDT [facility] Citrated Functional Fibrinogen W/Heparinase Maximum Amplitude(TEGEC MOLIVER) 20.4 15.0 - 34.0 mm 10/28/2024 7:50 PM EDT [facility] Citrated Rapid Teg W/Heparinase Maximum Amplitude (TEGECMOLIVER) 44.0(L) 53.0 - 69.0 mm 10/28/2024 7:50 PM EDT [facility] Citrated Kaolin w/Heparinase Percent Lysis (TEGECMOLIVER) 0.0 0.0 - 3.2 % 10/28/2024 7:50 PM EDT [facility] Whole Blood (Citrate) 10/28/2024 6:39 PM EDT 10/28/2024 6:42 PM EDT Kemar Sahni MD LAB BLOOD ORDERABLES Final Result [facility] [address] * (ABNORMAL) POC Glucose Monitoring Device (10/28/2024 5:31 PM EDT) POC Glucose Monitoring Device 130(H) 70 - 100 mg/dL 10/28/2024 5:31 PM EDT [facility] Blood 10/28/2024 5:31 PM EDT 10/28/2024 5:31 PM EDT us Harvey Domínguez III, MD POINT OF CARE TEST ORDERABLES Final Result Performing Organization Address City/[facility]/ZIP Co de Phone Number [facility] [address] * Transfuse RBC Transfusion Rate: Per dept routine (10/28/2024 5:23 PM EDT) Shay Plata MD NURSING TREATMENT OR DERABLES - BLOOD ADMIN Final Result Performing Organization Address City/[facility] Co de Phone Number EXTERNAL * Transfuse RBC Transfusion Rate: Per dept routine, 1 Units (10/28/2024 5:23 PM EDT) Shay Plata MD NURSING TREATMENT OR DERABLES - BLOOD ADMIN Final Result Performing Organization Address [facility] de Phone Number EXTERNAL * US Abdomen [...] EXAM: US ABDOMEN LIMITED EXAM: US DUPLEX [id number] COMPLETE INDICATION: Post-op liver transplant DATE: 10/28/2024 [...] retrohepatic inferior vena cava is patent. The pamunkey right kidney is partially visualized. A prominent [...] EXAM: US ABDOMEN LIMITED EXAM: US DUPLEX [id number] COMPLETE INDICATION: Post-op liver transplant DATE: 10/28/2024 [...] retrohepatic inferior vena cava is patent. The pamunkey right kidney is partially visualized. A prominent [...] 4:42 PM EDT us Shay Plata MD [facility] US ORDERABLES Fi nal Result * US Duplex [id number]-Kiq-[id number] Comp (10/28/2024 4:23 PM EDT) Anatomical Region [...] EXAM: US ABDOMEN LIMITED EXAM: US DUPLEX [id number] COMPLETE INDICATION: Post-op liver transplant DATE: 10/28/2024 [...] retrohepatic inferior vena cava is patent. The pamunkey right kidney is partially visualized. A prominent [...] EXAM: US ABDOMEN LIMITED EXAM: US DUPLEX [id number] COMPLETE INDICATION: Post-op liver transplant DATE: 10/28/2024 [...] retrohepatic inferior vena cava is patent. The pamunkey right kidney is partially visualized. A prominent [...] Wasserman MD at 10/28/2024 4:42 PM EDT Shay Plata MD [facility] US ORDERABLES Fi nal Result * (ABNORMAL) CBC, STAT (10/28/2024 2:49 PM EDT) WBC 4.0 3.8 - 10.8 10E3/uL 10/28/2024 3:07 PM EDT [facility] RBC 2.44(L) 4.20 - 5.80 10E6/uL 10/28/2024 3:07 PM EDT [facility] Hemoglobin 7.5(L) 13.2 - 17.1 g/dL 10/28/2024 3:07 PM EDT [facility] Hematocrit 21.4(L) 38.5 - 50.0 % 10/28/2024 3:07 PM EDT [facility] MCV 87.6 80.0 - 100.0 fL 10/28/2024 3:07 PM EDT [facility] MCH 30.6 27.0 - 33.0 pg 10/28/2024 3:07 PM EDT [facility] MCHC 34.9 32.0 - 36.0 g/dL 10/28/2024 3:07 PM EDT [facility] RDW 18.4(H) 11.0 - 15.0 % 10/28/2024 3:07 PM EDT [facility] Platelets 30(L) 140 - 400 10E3/uL 10/28/2024 3:07 PM EDT [facility] Comment: CNV Specimen checked for clots. None detected. MPV 7.7 7.5 - 11.5 fL 10/28/2024 3:07 PM EDT [facility] Whole Blood 10/28/2024 2:49 PM EDT 10/28/2024 2:53 PM EDT us Carlos Marks MD LAB BLOOD ORDERABLES Final Result Performing Organization Address City/State/[facility] Co de Phone Number [facility] [address] * ECG 12 lead (MUSE) (10/28/2024 1:22 PM EDT) 10/28/2024 1:22 PM EDT Narrative MUSE - 10/29/2024 10:34 PM EDT Ventricular Rate: 104 BPM Atrial Rate: 104 BPM P-R Interval: 172 ms QRS Duration: 90 ms QT: 354 ms QTc: 465 ms P [place]: 58 degrees R [place]: -19 degrees T [place]: 38 degrees Diagnosis Line: SINUS TACHYCARDIA ^ OTHERWISE NORMAL ECG ^ ^ Confirmed by JORGE MACIAS ([id number]) on 10/29/2024 10:34:22 PM us Hillary Fernandes PharmD ECG ORDERABLES Final Res ult Performing Organization Address [facility] Co de Phone Number MUSE * (ABNORMAL) POC Glucose Monitoring Device (10/28/2024 12:54 PM EDT) POC Glucose Monitoring Device 119(H) 70 - 100 mg/dL 10/28/2024 12:55 PM EDT [facility] Blood 10/28/2024 12:5 4 PM EDT 10/28/2024 12:55 PM EDT us Harvey Domínguez III, MD POINT OF CARE TEST ORDERABLES Final Result Performing Organization Address [facility] Co de Phone Number [facility] [address] * Transfuse RBC Transfusion Rate: Per dept routine (10/28/2024 12:31 PM EDT) Carlos Marks MD NURSING TREATMENT ORDERABLE S - BLOOD ADMIN Final Result Performing Organization Address [facility] de Phone Number EXTERNAL * Transfuse RBC Transfusion Rate: Per dept routine, 1 Units (10/28/2024 12:31 PM EDT) Carlos Marks MD NURSING TREATMENT ORDERABLE S - BLOOD ADMIN Final Result Performing Organization Address City/[facility] de Phone Number EXTERNAL * Protime-INR, STAT (10/28/2024 11:09 AM EDT) Protime 14.3 12.1 - 15.1 seconds 10/28/2024 11:29 AM EDT [facility] INR 1.1 0.9 - 1.1 10/28/2024 11:29 AM EDT [facility] Comment: RECOMMENDED THERAPEUTIC RANGES USING INR : Stable oral anticoagulant therapy: 2.0 - 3.0 Mechanical prosthetic heart valve: 2.5 - 3.5 Recurrent acute myocardial infarction: 2.5 - 3.5 Plasma 10/28/2024 11:0 9 AM EDT 10/28/2024 11:16 AM EDT us Carlos Marks MD LAB BLOOD ORDERABLES Final Result Performing Organization Address [facility]/ZIP Co de Phone Number [facility] [address] [place] [address]. [address] * (ABNORMAL) Lactic Acid, STAT (10/28/2024 11:09 AM EDT) Lactate 0.3(L) 0.5 - 2.2 mmol/L 10/28/2024 11:37 AM EDT [facility] Plasma 10/28/2024 11:0 9 AM EDT 10/28/2024 11:15 AM EDT us Carlos Marks MD LAB BLOOD ORDERABLES Final Result Performing Organization Address [facility] Co de Phone Number [facility] [address] [facility]. [address] * Magnesium, STAT (10/28/2024 11:09 AM EDT) Magnesium 2.1 1.5 - 2.5 mg/dL 10/28/2024 11:47 AM EDT [facility] Plasma 10/28/2024 11:0 9 AM EDT 10/28/2024 11:16 AM EDT us Carlos Marks MD LAB BLOOD ORDERABLES Final Result Performing Organization Address City/[facility] Co de Phone Number [facility] [address] [facility]. [address] * (ABNORMAL) Renal Function Panel w/EGFR, STAT (10/28/2024 11:09 AM EDT) Sodium 144 133 - 146 mmol/L 10/28/2024 11:47 AM EDT [facility] Potassium 3.4(L) 3.5 - 5.3 mmol/L 10/28/2024 11:47 AM EDT [facility] Chloride 112(H) 98 - 110 mmol/L 10/28/2024 11:47 AM EDT [facility] CO2 22 21 - 33 mmol/L 10/28/2024 11:47 AM EDT [facility] Anion Gap 10 3 - 16 mmol/L 10/28/2024 11:47 AM EDT [facility] BUN 57(H) 7 - 25 mg/dL 10/28/2024 11:47 AM EDT [facility] Creatinine 2.01(H) 0.60 - 1.30 mg/dL 10/28/2024 11:47 AM T [facility] Glucose 108(H) 70 - 100 mg/dL 10/28/2024 11:47 AM EDT [facility] Calcium 8.8 8.6 - 10.3 mg/dL 10/28/2024 11:47 AM EDT [facility] Phosphorus 4.0 2.1 - 4.7 mg/dL 10/28/2024 11:47 AM [facility] Albumin 3.3(L) 3.5 - 5.7 g/dL 10/28/2024 11:47 AM [facility] Osmolality, Calculated 314(H) 278 - 305 mOsm/kg 10/28/2024 11:47 AM [facility] EGFR 42 10/28/2024 11:47 AM [facility] Comment:As of 2021, the estimated [...] Marks MD LAB BLOOD ORDERABLES Final Result [facility] [address] [facility]. [address] * (ABNORMAL) TEG-Bypass/ECMO/Liver HN (Factor function, Platelet/Fibrin Clot Strength w/Clot Breakdown, Heparinase In All Channels) (10/28/2024 11:09 AM EDT) [facility] Citrated Kaolin Reaction Time (TEGECMOLIVER) 9.2(H) 4.6 - 9.1 minutes 10/28/2024 12:30 PM EDT [facility] Citrated Kaolin W/Heparinase Reaction Time (TEGECMOLIVER) 9.6(H) 4.3 - 8.3 minutes 10/28/2024 12:30 PM EDT [facility] Citrated Kaolin Maximum Amplitude (TEGECMOLIVER) 51.2(L) 52.0 - 69.0 mm 10/28/2024 12:30 PM EDT [facility] Citrated Functional Fibrinogen W/Heparinase Maximum Amplitude(TEGEC MOLIVER) 21.6 15.0 - 34.0 mm 10/28/2024 12:30 PM EDT [facility] Citrated Rapid Teg W/Heparinase Maximum Amplitude (TEGECMOLIVER) 49.3(L) 53.0 - 69.0 mm 10/28/2024 12:30 PM EDT [facility] Citrated Kaolin w/Heparinase Percent Lysis (TEGECMOLIVER) 0.0 0.0 - 3.2 % 10/28/2024 12:30 PM EDT [facility] Whole Blood (Citrate) 10/28/2024 11:09 AM EDT 10/28/2024 11:14 AM EDT Kemar Sahni MD LAB BLOOD ORDERABLES Final Result [facility] [address] * (ABNORMAL) CBC (10/28/2024 10:21 AM EDT) WBC 4.1 3.8 - 10.8 10E3/uL 10/28/2024 10:41 AM EDT [facility] RBC 2.30(L) 4.20 - 5.80 10E6/uL 10/28/2024 10:41 AM EDT [facility] Hemoglobin 7.1(L) 13.2 - 17.1 g/dL 10/28/2024 10:41 AM EDT [facility] Hematocrit 20.4(L) 38.5 - 50.0 % 10/28/2024 10:41 AM EDT [facility] MCV 88.5 80.0 - 100.0 fL 10/28/2024 10:41 AM EDT [facility] MCH 30.7 27.0 - 33.0 pg 10/28/2024 10:41 AM EDT [facility] MCHC 34.7 32.0 - 36.0 g/dL 10/28/2024 10:41 AM EDT [facility] RDW 18.7(H) 11.0 - 15.0 % 10/28/2024 10:41 AM EDT [facility] Platelets 37(L) 140 - 400 10E3/uL 10/28/2024 10:41 AM EDT [facility] Comment: CNV Specimen checked for clots. None detected. MPV 7.6 7.5 - 11.5 fL 10/28/2024 10:41 AM EDT [facility] Whole Blood 10/28/2024 10:2 1 AM EDT 10/28/2024 10:29 AM EDT us Carlos Marks MD LAB BLOOD ORDERABLES Final Result [facility] [address] * POC Glucose Monitoring Device (10/28/2024 9:07 AM EDT) POC Glucose Monitoring Device 97 70 - 100 mg/dL 10/28/2024 9:08 AM EDT [facility] Blood 10/28/2024 9:07 AM EDT 10/28/2024 9:08 AM EDT Harvey Domínguez III, MD POINT OF CARE TEST ORDERABLES Final Result Performing Organization Address [facility] de Phone Number [facility] [address] [place] [address] * (ABNORMAL) Tacrolimus level (10/28/2024 8:20 AM EDT) Pathologist [facility] Tacrolimus (LC-MS) <1.0(L) 3.0 - 15.0 ng/mL 10/28/2024 2:02 PM EDT [facility] Comment:Performed via liquid chromatography tandem mass spectrometry. Detection limit: 1 ng/mL. Individual target concentrations may vary due to target organ and time after transplant. This test has been developed and its performance characteristics determined by [facility] which is certified under the Clinical [...] EDT 10/28/2024 8:29 AM EDT Priti Geiger [facility] BLOOD ORDERABLES Final Re sult Performing Organization Address [facility] Co de Phone Number [facility] [address] [place] [address]. [address] * (ABNORMAL) POC Glucose Monitoring Device (10/28/2024 8:10 AM EDT) POC Glucose Monitoring Device 102(H) 70 - 100 mg/dL 10/28/2024 8:11 AM EDT [facility] Blood 10/28/2024 8:10 AM EDT 10/28/2024 8:11 AM EDT Harvey Domínguez III, MD POINT OF CARE TEST ORDERABLES Final Result Performing Organization Address [facility] Co de Phone Number [facility] [address] [facility]. [address] * POC Glucose Monitoring Device (10/28/2024 6:17 AM EDT) POC Glucose Monitoring Device 100 70 - 100 mg/dL 10/28/2024 6:18 AM EDT [facility] Blood 10/28/2024 6:17 AM EDT 10/28/2024 6:18 AM EDT Harvey Domínguez III, MD POINT OF CARE TEST ORDERABLES Final Result Performing Organization Address [facility] Co de Phone Number [facility] [address] [facility]. [address] * Prepare Platelets, leukoreduced (10/28/2024 6:15 AM EDT) Product Code K5427N56 HCLL Unit Number [id number] HCLL Dispense Status Presumed Transfused_PT HCLL Blood Expiration Date HCLL Coding System [id number] HCLL Product Code S7520S07 HCLL Unit Number [id number] HCLL Dispense Status Presumed Transfused_PT HCLL Blood Expiration Date HCLL Coding System [id number] HCLL us Attending Provider Unknown BLOOD BANK PRODUCT OR DERABLES Final Result Performing Organization Address [facility]/ZIP Co de Phone Number HCLL * Prepare Fresh Frozen Plasma (10/28/2024 6:15 AM EDT) Product Code S5373W53 HCLL Unit Number [id number] HCLL Dispense Status Released from Crossmatch_RE HCLL Blood Expiration Date HCLL Coding System [id number] HCLL Product Code U5106L24 HCLL Unit Number [id number] HCLL Dispense Status Presumed Transfused_PT HCLL Blood Expiration Date HCLL Coding System EFSD614 HCLL Product Code U4358F97 HCLL Unit Number [id number] HCLL Dispense Status Released from Crossmatch_RE HCLL Blood Expiration Date HCLL Coding System GNBO743 HCLL Product Code D6655O21 HCLL Unit Number [id number] HCLL Dispense Status Presumed Transfused_PT HCLL Blood Expiration Date HCLL Coding System BNEE394 HCLL Product Code N9158Z87 HCLL Unit Number [id number] HCLL Dispense Status Released from Crossmatch_RE HCLL Blood Expiration Date HCLL Coding System QQEG632 HCLL Attending Provider Unknown BLOOD BANK PRODUCT OR DERABLES Final Result HCLL * Prepare RBC, leukoreduced (10/28/2024 6:15 AM EDT) Product Code C7730O10 HCLL Unit Number [id number] HCLL Dispense Status Released from Crossmatch_RE HCLL Blood Expiration Date HCLL Coding System AOJV281 HCLL Product Code W2866M76 HCLL Unit Number [id number] HCLL Dispense Status Presumed Transfused_PT HCLL Blood Expiration Date [id number] HCLL Coding System XVRQ325 HCLL Product Code K5012D66 HCLL Unit Number [id number] HCLL Dispense Status Released from Crossmatch_RE HCLL Blood Expiration Date HCLL Coding System UTFC506 HCLL Product Code C7516O01 HCLL Unit Number [id number] HCLL Dispense Status Presumed Transfused_PT HCLL Blood Expiration Date HCLL Coding System IMAO076 HCLL Product Code B5691Y70 HCLL Unit Number [id number] HCLL Dispense Status Released from Crossmatch_RE HCLL Blood Expiration Date HCLL Coding System FCKP388 HCLL Attending Provider Unknown BLOOD BANK PRODUCT OR DERABLES Final Result HCLL * Prepare Platelets, leukoreduced, 1 Units (10/28/2024 6:15 AM EDT) Product Code Q2396M70 HCLL Unit Number [id number] HCLL Dispense Status Presumed Transfused_PT HCLL Blood Expiration Date [id number] HCLL Coding System ORKV366 HCLL Blood Bank Product Result [facility] John Pina MD BLOOD BANK PRODUCT ORDERABLES F inal Result Performing Organization Address [facility] Co de Phone Number HCLL * Prepare Cryoprecipitate, 1 Units (10/28/2024 6:15 AM EDT) Product Code I7003H42 HCLL Unit Number [id number] HCLL Dispense Status Presumed Transfused_PT HCLL Blood Expiration Date HCLL Coding System CENN656 HCLL Product Code O2490U09 HCLL Unit Number [id number] HCLL Dispense Status Presumed Transfused_PT HCLL Blood Expiration Date 340178121398 HCLL Coding System QJDQ961 HCLL Blood Bank Product John Pina MD BLOOD BANK PRODUCT ORDERABLES F inal Result Performing Organization Address [facility] Co de Phone Number HCLL * Prepare Fresh Frozen Plasma, 1 Units (10/28/2024 6:15 AM EDT) Product Code Q4869Z11 HCLL Unit Number [id number] HCLL Dispense Status Presumed Transfused_PT HCLL Blood Expiration Date 346244557123 HCLL Coding System EEHN552 HCLL Blood Bank Product John Pina MD BLOOD BANK PRODUCT ORDERABLES F inal Result HCLL * Prepare Cryoprecipitate, 1 Units (10/28/2024 6:15 AM EDT) Product Code J1120K26 HCLL Unit Number [id number] HCLL Dispense Status Presumed Transfused_PT HCLL Blood Expiration Date HCLL Coding System JOYY708 HCLL Product Code C9300M48 HCLL Unit Number [id number] HCLL Dispense Status Presumed Transfused_PT HCLL Blood Expiration Date HCLL Coding System LDWZ278 HCLL Product Code P4405P81 HCLL Unit Number [id number] HCLL Dispense Status Presumed Transfused_PT HCLL Blood Expiration Date HCLL Coding System WOZF266 HCLL Product Code L8726A44 HCLL Unit Number [id number] HCLL Dispense Status Presumed Transfused_PT HCLL Blood Expiration Date HCLL Coding System YSBX164 HCLL Blood Bank Product John Pina MD BLOOD BANK PRODUCT ORDERABLES F inal Result Performing Organization Address City/[facility]/ZIP Co de Phone Number HCLL * (ABNORMAL) POC Glucose Monitoring Device (10/28/2024 4:55 AM EDT) POC Glucose Monitoring Device 104(H) 70 - 100 mg/dL 10/28/2024 4:57 AM EDT [facility] Blood 10/28/2024 4:55 AM EDT 10/28/2024 4:57 AM EDT Harvey Domínguez III, MD POINT OF CARE TEST ORDERABLES Final Result [facility] [address] [place] [address], [facility] * TEG-Bypass/ECMO/Liver HN (Factor function, Platelet/Fibrin Clot Strength w/Clot Breakdown, Heparinase In All Channels) (10/28/2024 4:13 AM EDT) Citrated Kaolin Reaction Time (TEGECMOLIVER) 7.2 4.6 - 9.1 minutes 10/28/2024 5:38 AM EDT [facility] Citrated Kaolin W/Heparinase Reaction Time (TEGECMOLIVER) 7.8 4.3 - 8.3 minutes 10/28/2024 5:38 AM EDT [facility] Citrated Kaolin Maximum Amplitude (TEGECMOLIVER) 53.0 52.0 - 69.0 mm 10/28/2024 5:38 AM EDT [facility] Citrated Functional Fibrinogen W/Heparinase Maximum Amplitude(TEGEC MOLIVER) 21.4 15.0 - 34.0 mm 10/28/2024 5:38 AM EDT [facility] Citrated Rapid Teg W/Heparinase Maximum Amplitude (TEGECMOLIVER) 54.7 53.0 - 69.0 mm 10/28/2024 5:38 AM EDT [facility] Citrated Kaolin w/Heparinase Percent Lysis (TEGECMOLIVER) 0.0 0.0 - 3.2 % 10/28/2024 5:38 AM EDT [facility] Whole Blood (Citrate) 10/28/2024 4:13 AM EDT 10/28/2024 4:28 AM EDT us Kemar Sahni MD LAB BLOOD ORDERABLES Final Result Performing Organization Address City/State/[facility] Co de Phone Number [facility] [address] * Protime-INR (10/28/2024 4:13 AM EDT) Protime 14.6 12.1 - 15.1 seconds 10/28/2024 4:53 AM EDT [facility] INR 1.1 0.9 - 1.1 10/28/2024 4:53 AM EDT [facility] Comment: RECOMMENDED THERAPEUTIC RANGES USING INR : Stable oral anticoagulant therapy: 2.0 - 3.0 Mechanical prosthetic heart valve: 2.5 - 3.5 Recurrent acute myocardial infarction: 2.5 - 3.5 Plasma 10/28/2024 4:13 AM EDT 10/28/2024 4:41 AM EDT Kemar Sahni MD LAB BLOOD ORDERABLES Final Result Performing Organization Address City/[facility]/ZIP Co de Phone Number [facility] [address] * Magnesium (10/28/2024 4:13 AM EDT) Pathologist [facility] Magnesium 2.2 1.5 - 2.5 mg/dL 10/28/2024 5:15 AM EDT [facility] Plasma 10/28/2024 4:13 AM EDT 10/28/2024 4:41 AM EDT Kemar Sahni MD LAB BLOOD ORDERABLES Final Result Performing Organization Address [facility] Co de Phone Number [facility] [address] * (ABNORMAL) Hepatic Function Panel (10/28/2024 4:13 AM EDT) Total Bilirubin 2.3(H) 0.0 - 1.5 mg/dL 10/28/2024 5:15 AM EDT [facility] Bilirubin, Direct 1.67(H) 0.00 - 0.40 mg/dL 10/28/2024 5:15 AM EDT [facility] AST 44(H) 13 - 39 U/L 10/28/2024 5:15 AM EDT [facility] ALT 101(H) 7 - 52 U/L 10/28/2024 5:15 AM EDT [facility] Alkaline Phosphatase 26(L) 36 - 125 U/L 10/28/2024 5:15 AM EDT [facility] Total Protein 4.5(L) 6.4 - 8.9 g/dL 10/28/2024 5:15 AM EDT [facility] Albumin 3.1(L) 3.5 - 5.7 g/dL 10/28/2024 5:15 AM EDT [facility] Bilirubin, Indirect 0.63 0.00 - 1.10 mg/dL 10/28/2024 5:15 AM EDT [facility] Plasma 10/28/2024 4:13 AM EDT 10/28/2024 4:41 AM EDT Kemar Sahni MD LAB BLOOD ORDERABLES Final Result [facility] [address] [id number] * (ABNORMAL) Renal Function Panel w/EGFR (10/28/2024 4:13 AM EDT) Sodium 142 133 - 146 mmol/L 10/28/2024 5:15 AM EDT [facility] Potassium 3.5 3.5 - 5.3 mmol/L 10/28/2024 5:15 AM EDT [facility] Chloride 111(H) 98 - 110 mmol/L 10/28/2024 5:15 AM EDT [facility] CO2 22 21 - 33 mmol/L 10/28/2024 5:15 AM EDT [facility] Anion Gap 9 3 - 16 mmol/L 10/28/2024 5:15 AM EDT [facility] BUN 58(H) 7 - 25 mg/dL 10/28/2024 5:15 AM EDT [facility] Creatinine 2.24(H) 0.60 - 1.30 mg/dL 10/28/2024 5:15 AM EDT [facility] Glucose 103(H) 70 - 100 mg/dL 10/28/2024 5:15 AM EDT [facility] Calcium 9.1 8.6 - 10.3 mg/dL 10/28/2024 5:15 AM EDT [facility] Phosphorus 4.8(H) 2.1 - 4.7 mg/dL 10/28/2024 5:15 AM EDT [facility] Albumin 3.1(L) 3.5 - 5.7 g/dL 10/28/2024 5:15 AM EDT [facility] Osmolality, Calculated 310(H) 278 - 305 mOsm/kg 10/28/2024 5:15 AM EDT [facility] EGFR 37 10/28/2024 5:15 AM EDT [facility] Comment:As of 2021, the estimated [...] Sahni MD LAB BLOOD ORDERABLES Final Result [facility] [address] [id number], [facility] * (ABNORMAL) CBC (10/28/2024 4:13 AM EDT) WBC 4.5 3.8 - 10.8 10E3/uL 10/28/2024 5:09 AM EDT [facility] RBC 2.39(L) 4.20 - 5.80 10E6/uL 10/28/2024 5:09 AM EDT [facility] Hemoglobin 7.3(L) 13.2 - 17.1 g/dL 10/28/2024 5:09 AM EDT [facility] Hematocrit 21.0(L) 38.5 - 50.0 % 10/28/2024 5:09 AM EDT [facility] MCV 87.8 80.0 - 100.0 fL 10/28/2024 5:09 AM EDT [facility] MCH 30.5 27.0 - 33.0 pg 10/28/2024 5:09 AM EDT [facility] MCHC 34.7 32.0 - 36.0 g/dL 10/28/2024 5:09 AM EDT [facility] RDW 18.7(H) 11.0 - 15.0 % 10/28/2024 5:09 AM EDT [facility] Platelets 38(L) 140 - 400 10E3/uL 10/28/2024 5:09 AM EDT [facility] Comment: CNV Specimen checked for clots. None detected. MPV 7.6 7.5 - 11.5 fL 10/28/2024 5:09 AM EDT [facility] Whole Blood 10/28/2024 4:13 AM EDT 10/28/2024 4:41 AM EDT Kemar Sahni MD LAB BLOOD ORDERABLES Final Result Performing Organization Address City/[facility]/ZIP Co de Phone Number [facility] [address] * (ABNORMAL) POC Glucose Monitoring Device (10/28/2024 4:04 AM EDT) POC Glucose Monitoring Device 103(H) 70 - 100 mg/dL 10/28/2024 4:05 AM EDT [facility] Blood 10/28/2024 4:04 AM EDT 10/28/2024 4:05 AM EDT Harvey Domínguez III, MD POINT OF CARE TEST ORDERABLES Final Result [facility] [address] * (ABNORMAL) POC Glucose Monitoring Device (10/28/2024 3:00 AM EDT) POC Glucose Monitoring Device 106(H) 70 - 100 mg/dL 10/28/2024 3:01 AM EDT [facility] Blood 10/28/2024 3:00 AM EDT 10/28/2024 3:01 AM EDT Harvey Domínguez III, MD POINT OF CARE TEST ORDERABLES Final Result Performing Organization Address City/[facility] Co de Phone Number [facility] [address] * (ABNORMAL) POC Glucose Monitoring Device (10/28/2024 2:32 AM EDT) POC Glucose Monitoring Device 109(H) 70 - 100 mg/dL 10/28/2024 2:33 AM EDT [facility] Blood 10/28/2024 2:32 AM EDT 10/28/2024 2:33 AM EDT Harvey Domínguez III, MD POINT OF CARE TEST ORDERABLES Final Result Performing Organization Address [facility] Co de Phone Number [facility] [address] [facility]. [address] * (ABNORMAL) POC Glucose Monitoring Device (10/28/2024 2:14 AM EDT) POC Glucose Monitoring Device 115(H) 70 - 100 mg/dL 10/28/2024 2:15 AM EDT [facility] Blood 10/28/2024 2:14 AM EDT 10/28/2024 2:15 AM EDT Harvey Domínguez III, MD POINT OF CARE TEST ORDERABLES Final Result Performing Organization Address City/[facility] Co de Phone Number [facility] [address] * (ABNORMAL) POC Glucose Monitoring Device (10/28/2024 2:03 AM EDT) POC Glucose Monitoring Device 101(H) 70 - 100 mg/dL 10/28/2024 2:04 AM EDT [facility] Blood 10/28/2024 2:03 AM EDT 10/28/2024 2:04 AM EDT Harvey Domínguez III, MD POINT OF CARE TEST ORDERABLES Final Result [facility] [address] [place] [address], [facility] * Transfuse RBC Transfusion Rate: Per dept routine (10/28/2024 1:51 AM EDT) John Moreno MD NURSING TREATMENT ORDERABLES - BLOOD ADMIN Final Result EXTERNAL * Transfuse RBC Transfusion Rate: Per dept routine, 1 Units (10/28/2024 1:51 AM EDT) John Moreno MD NURSING TREATMENT ORDERABLES - BLOOD ADMIN Final Result Performing Organization Address City/[facility]/ZIP Co de Phone Number EXTERNAL * (ABNORMAL) TEG-Bypass/ECMO/Liver HN (Factor function, Platelet/Fibrin Clot Strength w/Clot Breakdown, Heparinase In All Channels) (10/28/2024 12:05 AM EDT) [facility] Citrated Kaolin Reaction Time (TEGECMOLIVER) 7.5 4.6 - 9.1 minutes 10/28/2024 1:22 AM EDT [facility] Citrated Kaolin W/Heparinase Reaction Time (TEGECMOLIVER) 7.7 4.3 - 8.3 minutes 10/28/2024 1:22 AM EDT [facility] Citrated Kaolin Maximum Amplitude (TEGECMOLIVER) 54.4 52.0 - 69.0 mm 10/28/2024 1:22 AM EDT [facility] Citrated Functional Fibrinogen W/Heparinase Maximum Amplitude(TEGEC MOLIVER) 20.4 15.0 - 34.0 mm 10/28/2024 1:22 AM EDT [facility] Citrated Rapid Teg W/Heparinase Maximum Amplitude (TEGECMOLIVER) 51.0(L) 53.0 - 69.0 mm 10/28/2024 1:22 AM EDT [facility] Citrated Kaolin w/Heparinase Percent Lysis (TEGECMOLIVER) 0.0 0.0 - 3.2 % 10/28/2024 1:22 AM EDT [facility] Whole Blood (Citrate) 10/28/2024 12:05 AM EDT 10/28/2024 12:09 AM EDT Kemar Sahni MD LAB BLOOD ORDERABLES Final Result [facility] [address] * Magnesium (10/28/2024 12:05 AM EDT) Magnesium 2.2 1.5 - 2.5 mg/dL 10/28/2024 1:59 AM EDT [facility] Plasma 10/28/2024 12:0 5 AM EDT 10/28/2024 12:11 AM EDT Kemar Sahni MD LAB BLOOD ORDERABLES Final Result Performing Organization Address [facility] Co de Phone Number [facility] [address] * (ABNORMAL) Renal Function Panel w/EGFR (10/28/2024 12:05 AM EDT) Sodium 144 133 - 146 mmol/L 10/28/2024 1:59 AM EDT [facility] Potassium 3.4(L) 3.5 - 5.3 mmol/L 10/28/2024 1:59 AM EDT [facility] Chloride 112(H) 98 - 110 mmol/L 10/28/2024 1:59 AM EDT [facility] CO2 19(L) 21 - 33 mmol/L 10/28/2024 1:59 AM EDT [facility] Anion Gap 13 3 - 16 mmol/L 10/28/2024 1:59 AM EDT [facility] BUN 59(H) 7 - 25 mg/dL 10/28/2024 1:59 AM EDT [facility] Creatinine 2.42(H) 0.60 - 1.30 mg/dL 10/28/2024 1:59 AM EDT [facility] Glucose 118(H) 70 - 100 mg/dL 10/28/2024 1:59 AM EDT [facility] Calcium 9.0 8.6 - 10.3 mg/dL 10/28/2024 1:59 AM EDT [facility] Phosphorus 5.3(H) 2.1 - 4.7 mg/dL 10/28/2024 1:59 AM EDT [facility] Albumin 3.1(L) 3.5 - 5.7 g/dL 10/28/2024 1:59 AM EDT [facility] Osmolality, Calculated 316(H) 278 - 305 mOsm/kg 10/28/2024 1:59 AM EDT [facility] EGFR 34 10/28/2024 1:59 AM EDT [facility] Comment:As of 2021, the estimated [...] Sahni MD LAB BLOOD ORDERABLES Final Result [facility] [address] [place] [address], [facility] * (ABNORMAL) Differential (10/28/2024 12:05 AM EDT) Neutrophils Relative 88.6(H) 40.0 - 80.0 % 10/28/2024 12:41 AM EDT [facility] Lymphocytes Relative 2.5(L) 15.0 - 45.0 % 10/28/2024 12:41 AM EDT [facility] Monocytes Relative 6.1 0.0 - 12.0 % 10/28/2024 12:41 AM EDT [facility] Eosinophils Relative 2.4 0.0 - 8.0 % 10/28/2024 12:41 AM EDT [facility] Basophils Relative 0.4 0.0 - 1.0 % 10/28/2024 12:41 AM EDT [facility] nRBC 0 0 - 0 /100 WBC 10/28/2024 12:41 AM EDT [facility] Neutrophils Absolute 4,341 1,520 - 8,640 /uL 10/28/2024 12:41 AM EDT [facility] Lymphocytes Absolute 123(L) 570 - 4,860 /uL 10/28/2024 12:41 AM EDT [facility] Monocytes Absolute 299 0 - 1,296 /uL 10/28/2024 12:41 AM EDT [facility] Eosinophils Absolute 118 0 - 864 /uL 10/28/2024 12:41 AM EDT [facility] Basophils Absolute 20 0 - 108 /uL 10/28/2024 12:41 AM EDT [facility] Whole Blood 10/28/2024 12:0 5 AM EDT 10/28/2024 12:11 AM EDT Kemar Sahni MD LAB BLOOD ORDERABLES Final Result [facility] [address] [place] [address], [facility] * (ABNORMAL) CBC (10/28/2024 12:05 AM EDT) WBC 4.9 3.8 - 10.8 10E3/uL 10/28/2024 12:41 AM EDT [facility] RBC 2.18(L) 4.20 - 5.80 10E6/uL 10/28/2024 12:41 AM EDT [facility] Hemoglobin 6.7(L) 13.2 - 17.1 g/dL 10/28/2024 12:41 AM EDT [facility] Hematocrit 19.2(L) 38.5 - 50.0 % 10/28/2024 12:41 AM EDT [facility] MCV 87.8 80.0 - 100.0 fL 10/28/2024 12:41 AM EDT [facility] MCH 30.6 27.0 - 33.0 pg 10/28/2024 12:41 AM EDT [facility] MCHC 34.8 32.0 - 36.0 g/dL 10/28/2024 12:41 AM EDT [facility] RDW 19.6(H) 11.0 - 15.0 % 10/28/2024 12:41 AM EDT [facility] Platelets 45(L) 140 - 400 10E3/uL 10/28/2024 12:41 AM EDT [facility] Comment: CNV Specimen checked for clots. None detected. MPV 7.8 7.5 - 11.5 fL 10/28/2024 12:41 AM EDT [facility] Whole Blood 10/28/2024 12:0 5 AM EDT 10/28/2024 12:11 AM EDT us Kemar Sahni MD LAB BLOOD ORDERABLES Final Result [facility] [address] * (ABNORMAL) POC Glucose Monitoring Device (10/28/2024 12:03 AM EDT) POC Glucose Monitoring Device 122(H) 70 - 100 mg/dL 10/28/2024 12:04 AM EDT [facility] Blood 10/28/2024 12:0 3 AM EDT 10/28/2024 12:04 AM EDT Harvey Domínguez III, MD POINT OF CARE TEST ORDERABLES Final Result [facility] [address] * (ABNORMAL) POC Glucose Monitoring Device (10/27/2024 10:03 PM EDT) POC Glucose Monitoring Device 127(H) 70 - 100 mg/dL 10/27/2024 10:03 PM EDT [facility] Blood 10/27/2024 10:0 3 PM EDT 10/27/2024 10:03 PM EDT us Harvey Domínguez III, MD POINT OF CARE TEST ORDERABLES Final Result [facility] [address] [facility]. [address] * (ABNORMAL) POC Glucose Monitoring Device (10/27/2024 8:06 PM EDT) POC Glucose Monitoring Device 128(H) 70 - 100 mg/dL 10/27/2024 8:45 PM EDT [facility] Blood 10/27/2024 8:06 PM EDT 10/27/2024 8:45 PM EDT Harvey Domínugez III, MD POINT OF CARE TEST ORDERABLES Final Result Performing Organization Address [facility]/ZIP Co de Phone Number [facility] [address] [facility]. [address] * (ABNORMAL) POC Glucose Monitoring Device (10/27/2024 6:00 PM EDT) POC Glucose Monitoring Device 128(H) 70 - 100 mg/dL 10/27/2024 6:00 PM EDT [facility] Blood 10/27/2024 6:00 PM EDT 10/27/2024 6:00 PM EDT Harvey Domínguez III, MD POINT OF CARE TEST ORDERABLES Final Result [facility] [address] [facility]. [address] * Lactic Acid, STAT (10/27/2024 5:41 PM EDT) Lactate 0.5 0.5 - 2.2 mmol/L 10/27/2024 6:28 PM EDT [facility] Plasma 10/27/2024 5:41 PM EDT 10/27/2024 5:49 PM EDT Narrative [facility] - 10/27/2024 6:28 PM EDT Redraw us John Moreno MD LAB BLOOD ORDERABLES Final R esult [facility] [address] [facility]. [address] * (ABNORMAL) Hepatic Function Panel, STAT (10/27/2024 5:13 PM EDT) Total Bilirubin 1.7(H) 0.0 - 1.5 mg/dL 10/27/2024 5:50 PM EDT [facility] Bilirubin, Direct 1.17(H) 0.00 - 0.40 mg/dL 10/27/2024 5:50 PM EDT [facility] AST 60(H) 13 - 39 U/L 10/27/2024 5:50 PM EDT [facility] ALT 134(H) 7 - 52 U/L 10/27/2024 5:50 PM EDT [facility] Alkaline Phosphatase 27(L) 36 - 125 U/L 10/27/2024 5:50 PM EDT [facility] Total Protein 4.1(L) 6.4 - 8.9 g/dL 10/27/2024 5:50 PM EDT [facility] Albumin 2.9(L) 3.5 - 5.7 g/dL 10/27/2024 5:50 PM EDT [facility] Bilirubin, Indirect 0.53 0.00 - 1.10 mg/dL 10/27/2024 5:50 PM EDT [facility] Plasma 10/27/2024 5:13 PM EDT 10/27/2024 5:23 PM EDT us Shay Plata MD LAB BLOOD ORDERABLES Final Result [facility] [address] [facility]. [address] * (ABNORMAL) TEG-Bypass/ECMO/Liver HN (Factor function, Platelet/Fibrin Clot Strength w/Clot Breakdown, Heparinase In All Channels) (10/27/2024 5:13 PM EDT) Citrated Kaolin Reaction Time (TEGECMOLIVER) 8.0 4.6 - 9.1 minutes 10/27/2024 6:56 PM [facility]T [facility] Citrated Kaolin W/Heparinase Reaction Time (TEGECMOLIVER) 6.8 4.3 - 8.3 minutes 10/27/2024 6:56 PM EDT [facility] Citrated Kaolin Maximum Amplitude (TEGECMOLIVER) 55.4 52.0 - 69.0 mm 10/27/2024 6:56 PM EDT [facility] Citrated Functional Fibrinogen W/Heparinase Maximum Amplitude(TEGEC MOLIVER) 22.9 15.0 - 34.0 mm 10/27/2024 6:56 PM EDT [facility] Citrated Rapid Teg W/Heparinase Maximum Amplitude (TEGECMOLIVER) 50.8(L) 53.0 - 69.0 mm 10/27/2024 6:56 PM EDT [facility] Citrated Kaolin w/Heparinase Percent Lysis (TEGECMOLIVER) 0.1 0.0 - 3.2 % 10/27/2024 6:56 PM EDT [facility] Whole Blood (Citrate) 10/27/2024 5:13 PM EDT 10/27/2024 5:20 PM EDT us Kemar Sahni MD LAB BLOOD ORDERABLES Final Result [facility] [address] [place] [address], [facility] * (ABNORMAL) Protime-INR (10/27/2024 5:13 PM EDT) Protime 15.2(H) 12.1 - 15.1 seconds 10/27/2024 5:40 PM EDT [facility] INR 1.1 0.9 - 1.1 10/27/2024 5:40 PM EDT [facility] Comment: RECOMMENDED THERAPEUTIC RANGES USING INR : Stable oral anticoagulant therapy: 2.0 - 3.0 Mechanical prosthetic heart valve: 2.5 - 3.5 Recurrent acute myocardial infarction: 2.5 - 3.5 Plasma 10/27/2024 5:13 PM EDT 10/27/2024 5:23 PM EDT Kemar Sahni MD LAB BLOOD ORDERABLES Final Result Performing Organization Address City/[facility]/ZIP Co de Phone Number [facility] [address] [facility]. [address] * Magnesium (10/27/2024 5:13 PM EDT) Pathologist [facility] Magnesium 2.4 1.5 - 2.5 mg/dL 10/27/2024 5:53 PM EDT [facility] Plasma 10/27/2024 5:13 PM EDT 10/27/2024 5:23 PM EDT Kemar Sahni MD LAB BLOOD ORDERABLES Final Result Performing Organization Address [facility] de Phone Number [facility] [address] * (ABNORMAL) Hepatic Function Panel (10/27/2024 5:13 PM EDT) Total Bilirubin 1.7(H) 0.0 - 1.5 mg/dL 10/27/2024 5:53 PM EDT [facility] Bilirubin, Direct 1.10(H) 0.00 - 0.40 mg/dL 10/27/2024 5:53 PM EDT [facility] AST 62(H) 13 - 39 U/L 10/27/2024 5:53 PM EDT [facility] ALT 134(H) 7 - 52 U/L 10/27/2024 5:53 PM EDT [facility] Alkaline Phosphatase 27(L) 36 - 125 U/L 10/27/2024 5:53 PM EDT [facility] Total Protein 4.1(L) 6.4 - 8.9 g/dL 10/27/2024 5:53 PM EDT [facility] Albumin 2.9(L) 3.5 - 5.7 g/dL 10/27/2024 5:53 PM EDT [facility] Bilirubin, Indirect 0.60 0.00 - 1.10 mg/dL 10/27/2024 5:53 PM EDT [facility] Plasma 10/27/2024 5:13 PM EDT 10/27/2024 5:23 PM EDT Kemar Sahni MD LAB BLOOD ORDERABLES Final Result [facility] [address] [place] [address], [facility] * (ABNORMAL) Renal Function Panel w/EGFR (10/27/2024 5:13 PM EDT) Sodium 142 133 - 146 mmol/L 10/27/2024 5:53 PM EDT [facility] Potassium 3.4(L) 3.5 - 5.3 mmol/L 10/27/2024 5:53 PM EDT [facility] Chloride 109 98 - 110 mmol/L 10/27/2024 5:53 PM EDT [facility] CO2 22 21 - 33 mmol/L 10/27/2024 5:53 PM EDT [facility] Anion Gap 11 3 - 16 mmol/L 10/27/2024 5:53 PM EDT [facility] BUN 61(H) 7 - 25 mg/dL 10/27/2024 5:53 PM EDT [facility] Creatinine 2.42(H) 0.60 - 1.30 mg/dL 10/27/2024 5:53 PM EDT [facility] Glucose 125(H) 70 - 100 mg/dL 10/27/2024 5:53 PM EDT [facility] Calcium 8.8 8.6 - 10.3 mg/dL 10/27/2024 5:53 PM EDT [facility] Phosphorus 5.7(H) 2.1 - 4.7 mg/dL 10/27/2024 5:53 PM EDT [facility] Albumin 2.9(L) 3.5 - 5.7 g/dL 10/27/2024 5:53 PM EDT [facility] Osmolality, Calculated 313(H) 278 - 305 mOsm/kg 10/27/2024 5:53 PM EDT [facility] EGFR 34 10/27/2024 5:53 PM EDT [facility] Comment:As of 2021, the estimated [...] Sahni MD LAB BLOOD ORDERABLES Final Result [facility] [address] * (ABNORMAL) CBC (10/27/2024 5:13 PM EDT) WBC 4.9 3.8 - 10.8 10E3/uL 10/27/2024 6:14 PM EDT [facility] RBC 2.44(L) 4.20 - 5.80 10E6/uL 10/27/2024 6:14 PM EDT [facility] Hemoglobin 7.4(L) 13.2 - 17.1 g/dL 10/27/2024 6:14 PM EDT [facility] Hematocrit 21.4(L) 38.5 - 50.0 % 10/27/2024 6:14 PM EDT [facility] MCV 87.6 80.0 - 100.0 fL 10/27/2024 6:14 PM EDT [facility] MCH 30.3 27.0 - 33.0 pg 10/27/2024 6:14 PM EDT [facility] MCHC 34.6 32.0 - 36.0 g/dL 10/27/2024 6:14 PM EDT [facility] RDW 19.6(H) 11.0 - 15.0 % 10/27/2024 6:14 PM EDT [facility] Platelets 47(L) 140 - 400 10E3/uL 10/27/2024 6:14 PM EDT [facility] Comment: CNV Specimen checked for clots. None detected. MPV 8.1 7.5 - 11.5 fL 10/27/2024 6:14 PM EDT [facility] Whole Blood 10/27/2024 5:13 PM EDT 10/27/2024 5:23 PM EDT Kemar Sahni MD LAB BLOOD ORDERABLES Final Result [facility] [address] * (ABNORMAL) POC Glucose Monitoring Device (10/27/2024 3:57 PM EDT) [facility] POC Glucose Monitoring Device 131(H) 70 - 100 mg/dL 10/27/2024 3:58 PM EDT [facility] Blood 10/27/2024 3:57 PM EDT 10/27/2024 3:58 PM EDT Harvey Domínguez III, MD POINT OF CARE TEST ORDERABLES Final Result [facility] [address] * (ABNORMAL) CBC, STAT (10/27/2024 2:40 PM EDT) Pathologist [facility] WBC 5.8 3.8 - 10.8 10E3/uL 10/27/2024 2:54 PM EDT [facility] RBC 2.43(L) 4.20 - 5.80 10E6/uL 10/27/2024 2:54 PM EDT [facility] Hemoglobin 7.5(L) 13.2 - 17.1 g/dL 10/27/2024 2:54 PM EDT [facility] Hematocrit 21.5(L) 38.5 - 50.0 % 10/27/2024 2:54 PM EDT [facility] MCV 88.2 80.0 - 100.0 fL 10/27/2024 2:54 PM EDT [facility] MCH 30.7 27.0 - 33.0 pg 10/27/2024 2:54 PM EDT [facility] MCHC 34.8 32.0 - 36.0 g/dL 10/27/2024 2:54 PM EDT [facility] RDW 19.1(H) 11.0 - 15.0 % 10/27/2024 2:54 PM EDT [facility] Platelets 50(L) 140 - 400 10E3/uL 10/27/2024 2:54 PM EDT [facility] MPV 7.5 7.5 - 11.5 fL 10/27/2024 2:54 PM EDT [facility] Whole Blood 10/27/2024 2:40 PM EDT 10/27/2024 2:44 PM EDT us John Moreno MD LAB BLOOD ORDERABLES Final R esult [facility] [address] [id number], [facility] * (ABNORMAL) Blood Gas, Arterial, STAT (10/27/2024 2:40 PM EDT) O2 Sat, Arterial 98 10/27/2024 2:46 PM EDT [facility] FIO2 RA 10/27/2024 2:46 PM EDT [facility] pH, Arterial 7.37 7.35 - 7.45 10/27/2024 2:46 PM EDT [facility] pCO2, Arterial 35 35 - 45 mm Hg 10/27/2024 2:46 PM EDT [facility] pO2, Arterial 92 80 - 100 mm Hg 10/27/2024 2:46 PM EDT [facility] HCO3, Arterial 21(L) 22 - 26 mmol/L 10/27/2024 2:46 PM EDT [facility] CO2 Content,Arteri al 21(L) 23 - 27 mmol/L 10/27/2024 2:46 PM EDT [facility] Base Excess, Arterial -4.6(L) -2.0 - 3.0 mmol/L 10/27/2024 2:46 PM EDT [facility] %HBO2, Arterial 95.4 95.0 - 98.0 % 10/27/2024 2:46 PM EDT [facility] Carboxyhemoglo bin, Arterial 1.6 % 10/27/2024 2:46 PM EDT [facility] Comment: CARBOXYHEMOGLOBIN (CO) REFERENCE RANGES: Non-Smokers: <2 % Smokers: <8 % TOXIC: >20 % Methemoglobin, Arterial 1.0 0.0 - 1.5 % 10/27/2024 2:46 PM EDT [facility] Reduced hemoglobin, Arterial 2.1 0.0 - 5.0 % 10/27/2024 2:46 PM EDT [facility] Blood, Arterial 10/27/2024 2 :40 PM EDT 10/27/2024 2:44 PM EDT Narrative [facility] - 10/27/2024 2:46 PM EDT Post extubation us John Moreno MD LAB BLOOD ORDERABLES Final R esult Performing Organization Address City/[facility] Co de Phone Number [facility] [address] [place], [place] [address] * (ABNORMAL) POC Glucose Monitoring Device (10/27/2024 2:06 PM EDT) POC Glucose Monitoring Device 134(H) 70 - 100 mg/dL 10/27/2024 2:06 PM EDT [facility] Blood 10/27/2024 2:06 PM EDT 10/27/2024 2:06 PM EDT Harvey Domínguez III, MD POINT OF CARE TEST ORDERABLES Final Result [facility] [address] [place] [address], [facility] * (ABNORMAL) Blood gas, arterial (10/27/2024 12:35 PM EDT) O2 Sat, Arterial 99 10/27/2024 12:46 PM EDT [facility] FIO2 SBT 30% 10/27/2024 12:46 PM EDT [facility] pH, Arterial 7.35 7.35 - 7.45 10/27/2024 12:46 PM EDT [facility] pCO2, Arterial 37 35 - 45 mm Hg 10/27/2024 12:46 PM EDT [facility] pO2, Arterial 182(H) 80 - 100 mm Hg 10/27/2024 12:46 PM EDT [facility] HCO3, Arterial 21(L) 22 - 26 mmol/L 10/27/2024 12:46 PM EDT [facility] CO2 Content,Arteri al 22(L) 23 - 27 mmol/L 10/27/2024 12:46 PM EDT [facility] Base Excess, Arterial -4.8(L) -2.0 - 3.0 mmol/L 10/27/2024 12:46 PM EDT [facility] %HBO2, Arterial 96.3 95.0 - 98.0 % 10/27/2024 12:46 PM EDT [facility] Carboxyhemoglo bin, Arterial 1.7 % 10/27/2024 12:46 PM EDT [facility] Comment: CARBOXYHEMOGLOBIN (CO) REFERENCE RANGES: Non-Smokers: <2 % Smokers: <8 % TOXIC: >20 % Methemoglobin, Arterial 1.4 0.0 - 1.5 % 10/27/2024 12:46 PM EDT [facility] Reduced hemoglobin, Arterial 0.6 0.0 - 5.0 % 10/27/2024 12:46 PM EDT [facility] Blood, Arterial 10/27/2024 1 2:35 PM EDT 10/27/2024 12:42 PM EDT Narrative [facility] - 10/27/2024 12:46 PM EDT Please obtain post SBT us Shay Sifuentes MD LAB BLOOD ORDERABLES Final Resu lt [facility] [address] * (ABNORMAL) TEG-Bypass/ECMO/Liver HN (Factor function, Platelet/Fibrin Clot Strength w/Clot Breakdown, Heparinase In All Channels) (10/27/2024 12:07 PM EDT) Pathologist [facility] Citrated Kaolin Reaction Time (TEGECMOLIVER) 7.9 4.6 - 9.1 minutes 10/27/2024 1:24 PM EDT [facility] Citrated Kaolin W/Heparinase Reaction Time (TEGECMOLIVER) 8.3 4.3 - 8.3 minutes 10/27/2024 1:24 PM EDT [facility] Citrated Kaolin Maximum Amplitude (TEGECMOLIVER) 52.0 52.0 - 69.0 mm 10/27/2024 1:24 PM EDT [facility] Citrated Functional Fibrinogen W/Heparinase Maximum Amplitude(TEGEC MOLIVER) 20.1 15.0 - 34.0 mm 10/27/2024 1:24 PM EDT [facility] Citrated Rapid Teg W/Heparinase Maximum Amplitude (TEGECMOLIVER) 49.4(L) 53.0 - 69.0 mm 10/27/2024 1:24 PM EDT [facility] Citrated Kaolin w/Heparinase Percent Lysis (TEGECMOLIVER) 0.0 0.0 - 3.2 % 10/27/2024 1:24 PM EDT [facility] Whole Blood (Citrate) 10/27/2024 12:07 PM EDT 10/27/2024 12:09 PM EDT Kemar Sahni MD LAB BLOOD ORDERABLES Final Result [facility] [address] * (ABNORMAL) POC Glucose Monitoring Device (10/27/2024 12:01 PM EDT) POC Glucose Monitoring Device 121(H) 70 - 100 mg/dL 10/27/2024 12:02 PM EDT [facility] Blood 10/27/2024 12:0 1 PM EDT 10/27/2024 12:01 PM EDT Harvey Domínguez III, MD POINT OF CARE TEST ORDERABLES Final Result Performing Organization Address [facility] Co de Phone Number [facility] [address] * (ABNORMAL) POC Glucose Monitoring Device (10/27/2024 10:59 AM EDT) [facility] POC Glucose Monitoring Device 126(H) 70 - 100 mg/dL 10/27/2024 11:10 AM EDT [facility] Blood 10/27/2024 10:5 9 AM EDT 10/27/2024 11:10 AM EDT Harvey Domínguez III, MD POINT OF CARE TEST ORDERABLES Final Result Performing Organization Address [facility] [facility] de Phone Number [facility] [address] * ECG 12 lead (MUSE) (10/27/2024 10:17 AM EDT) 10/27/2024 10:1 7 AM EDT Narrative MUSE - 10/27/2024 2:51 PM EDT Ventricular Rate: 91 BPM Atrial Rate: 91 BPM P-R Interval: 168 ms QRS Duration: 90 ms QT: 274 ms QTc: 337 ms P [place]: 60 degrees R [place]: -30 degrees T [place]: -15 degrees Diagnosis Line: NORMAL SINUS RHYTHM ^ LEFT AXIS DEVIATION, LEFT ANTERIOR HEMIBLOCK ^ NONSPECIFIC T WAVE CHANGE ^ ABNORMAL ECG ^ ^ Confirmed by MD ROLLY, [facility] ([id number]) on 10/27/2024 2:51:52 PM Shay Sifuentes MD ECG ORDERABLES Final Result Performing Organization Address City/[facility] Co de Phone Number MUSE * (ABNORMAL) POC Glucose Monitoring Device (10/27/2024 10:00 AM EDT) POC Glucose Monitoring Device 121(H) 70 - 100 mg/dL 10/27/2024 10:01 AM EDT [facility] Blood 10/27/2024 10:0 0 AM EDT 10/27/2024 10:01 AM EDT Harvey Domínguez III, MD POINT OF CARE TEST ORDERABLES Final Result [facility] [address] [place] [address], [facility] * US Renal Transplant (10/27/2024 9:51 [...] US ORDERABLES Final Result * US Duplex Nzl-Jle-Jdjldwz Comp (10/27/2024 9:51 AM EDT) Anatomical Region [...] EXAM: US ABDOMEN LIMITED EXAM: US DUPLEX [id number] COMPLETE INDICATION: Post-op liver transplant COMPARISON: None [...] absent.. Pancreas: Obscured by overlying bowel gas. [place] right kidney: 12.5 cm in length. Normal [...] EXAM: US ABDOMEN LIMITED EXAM: US DUPLEX [id number] COMPLETE INDICATION: Post-op liver transplant COMPARISON: None [...] absent.. Pancreas: Obscured by overlying bowel gas. [place] right kidney: 12.5 cm in length. Normal [...] EXAM: US ABDOMEN LIMITED EXAM: US DUPLEX [id number] COMPLETE INDICATION: Post-op liver transplant COMPARISON: None [...] absent.. Pancreas: Obscured by overlying bowel gas. [place] right kidney: 12.5 cm in length. Normal [...] EXAM: US ABDOMEN LIMITED EXAM: US DUPLEX [id number] COMPLETE INDICATION: Post-op liver transplant COMPARISON: None [...] absent.. Pancreas: Obscured by overlying bowel gas. [place] right kidney: 12.5 cm in length. Normal [...] 10:38 AM EDT us Sveta Judge MD [facility] US ORDERABLES Final Result * CARISA Rhythm Strip - Scan (10/27/2024 9:25 AM EDT) us Scanning Uchhim SCAN DOCS - NO RESULTS Final Res ult * (ABNORMAL) POC Glucose Monitoring Device (10/27/2024 9:05 AM EDT) POC Glucose Monitoring Device 118(H) 70 - 100 mg/dL 10/27/2024 9:06 AM EDT [facility] Blood 10/27/2024 9:05 AM EDT 10/27/2024 9:06 AM EDT us Harvey Domínguez III, MD POINT OF CARE TEST ORDERABLES Final Result [facility] [address] [place] [address], [facility] * X-ray Portable Chest (10/27/2024 8:58 [...] Rodriges MD at 10/27/2024 9:22 AM EDT us John Moreno MD IMG DIAGNOSTIC IMAGING ORDER PAL Final Result * (ABNORMAL) Protime-INR, STAT (10/27/2024 8:16 AM EDT) Protime 16.2(H) 12.1 - 15.1 seconds 10/27/2024 8:35 AM EDT [facility] INR 1.2(H) 0.9 - 1.1 10/27/2024 8:35 AM EDT [facility] Comment: RECOMMENDED THERAPEUTIC RANGES USING INR : Stable oral anticoagulant therapy: 2.0 - 3.0 Mechanical prosthetic heart valve: 2.5 - 3.5 Recurrent acute myocardial infarction: 2.5 - 3.5 Plasma 10/27/2024 8:16 AM EDT 10/27/2024 8:20 AM EDT us John Moreno MD LAB BLOOD ORDERABLES Final R esult [facility] [address] [place] [address], [facility] * Magnesium (10/27/2024 8:00 AM EDT) Magnesium 1.8 1.5 - 2.5 mg/dL 10/27/2024 10:50 AM EDT [facility] Plasma 10/27/2024 8:00 AM EDT 10/27/2024 10:31 AM EDT Kemar Sahni MD LAB BLOOD ORDERABLES Final Result [facility] [address] [place], [place] [address] * (ABNORMAL) Renal Function Panel w/EGFR (10/27/2024 8:00 AM EDT) Sodium 142 133 - 146 mmol/L 10/27/2024 10:18 AM EDT [facility] Potassium 3.0(L) 3.5 - 5.3 mmol/L 10/27/2024 10:18 AM EDT [facility] Chloride 109 98 - 110 mmol/L 10/27/2024 10:18 AM EDT [facility] CO2 21 21 - 33 mmol/L 10/27/2024 10:18 AM EDT [facility] Anion Gap 12 3 - 16 mmol/L 10/27/2024 10:18 AM EDT [facility] BUN 59(H) 7 - 25 mg/dL 10/27/2024 10:18 AM EDT [facility] Creatinine 2.54(H) 0.60 - 1.30 mg/dL 10/27/2024 10:18 AM EDT [facility] Glucose 111(H) 70 - 100 mg/dL 10/27/2024 10:18 AM EDT [facility] Calcium 9.1 8.6 - 10.3 mg/dL 10/27/2024 10:18 AM EDT [facility] Phosphorus 5.5(H) 2.1 - 4.7 mg/dL 10/27/2024 10:18 AM EDT [facility] Albumin 3.0(L) 3.5 - 5.7 g/dL 10/27/2024 10:18 AM EDT [facility] Osmolality, Calculated 311(H) 278 - 305 mOsm/kg 10/27/2024 10:18 AM EDT [facility] EGFR 32 10/27/2024 10:18 AM EDT [facility] Comment:As of [...] Sahni MD LAB BLOOD ORDERABLES Final Result [facility] [address] [place] [address], [facility] * (ABNORMAL) Hepatic Function Panel, STAT (10/27/2024 8:00 AM EDT) Total Bilirubin 1.3 0.0 - 1.5 mg/dL 10/27/2024 8:51 AM EDT [facility] Bilirubin, Direct 0.93(H) 0.00 - 0.40 mg/dL 10/27/2024 8:51 AM EDT [facility] AST 88(H) 13 - 39 U/L 10/27/2024 8:51 AM EDT [facility] ALT 149(H) 7 - 52 U/L 10/27/2024 8:51 AM EDT [facility] Alkaline Phosphatase 26(L) 36 - 125 U/L 10/27/2024 8:51 AM EDT [facility] Total Protein 4.0(L) 6.4 - 8.9 g/dL 10/27/2024 8:51 AM EDT [facility] Albumin 3.0(L) 3.5 - 5.7 g/dL 10/27/2024 8:51 AM EDT [facility] Bilirubin, Indirect 0.37 0.00 - 1.10 mg/dL 10/27/2024 8:51 AM EDT [facility] Plasma 10/27/2024 8:00 AM EDT 10/27/2024 8:20 AM EDT Harvey Domínguez III, MD LAB BLOOD ORDERABLE S Final Result Performing Organization Address [facility] de Phone Number [facility] [address] [place] [address]. [address] * (ABNORMAL) Lactic Acid, STAT (10/27/2024 8:00 AM EDT) Lactate 0.4(L) 0.5 - 2.2 mmol/L 10/27/2024 8:43 AM EDT [facility] Plasma 10/27/2024 8:00 AM EDT 10/27/2024 8:20 AM EDT Harvey Domínguez III, MD LAB BLOOD ORDERABLE S Final Result Performing Organization Address [facility] de Phone Number [facility] [address] [place] [address] * (ABNORMAL) Blood Gas, Arterial, STAT (10/27/2024 8:00 AM EDT) O2 Sat, Arterial 100 10/27/2024 8:23 AM EDT [facility] pH, Arterial 7.36 7.35 - 7.45 10/27/2024 8:23 AM EDT [facility] pCO2, Arterial 37 35 - 45 mm Hg 10/27/2024 8:23 AM EDT [facility] pO2, Arterial 245(H) 80 - 100 mm Hg 10/27/2024 8:23 AM EDT [facility] HCO3, Arterial 22 22 - 26 mmol/L 10/27/2024 8:23 AM EDT [facility] CO2 Content,Arteri al 22(L) 23 - 27 mmol/L 10/27/2024 8:23 AM EDT [facility] Base Excess, Arterial -4.2(L) -2.0 - 3.0 mmol/L 10/27/2024 8:23 AM EDT [facility] %HBO2, Arterial 96.5 95.0 - 98.0 % 10/27/2024 8:23 AM EDT [facility] Carboxyhemoglo bin, Arterial 2.2 % 10/27/2024 8:23 AM EDT [facility] Comment: CARBOXYHEMOGLOBIN (CO) REFERENCE RANGES: Non-Smokers: <2 % Smokers: <8 % TOXIC: >20 % Methemoglobin, Arterial 1.2 0.0 - 1.5 % 10/27/2024 8:23 AM EDT [facility] Reduced hemoglobin, Arterial 0.0 0.0 - 5.0 % 10/27/2024 8:23 AM EDT [facility] Blood, Arterial 10/27/2024 8 :00 AM EDT 10/27/2024 8:19 AM EDT Narrative [facility] - 10/27/2024 8:23 AM EDT Specimen is beyond 15 minutes from time of collection. Results may be compromised. Review results critically. us Kemar Sahni MD LAB BLOOD ORDERABLES Final Result [facility] [address] [place] [address], [facility] * (ABNORMAL) TEG-Bypass/ECMO/Liver HN (Factor function, Platelet/Fibrin Clot Strength w/Clot Breakdown, Heparinase In All Channels) (10/27/2024 8:00 AM EDT) Citrated Kaolin Reaction Time (TEGECMOLIVER) 7.8 4.6 - 9.1 minutes 10/27/2024 9:39 AM EDT [facility] Citrated Kaolin W/Heparinase Reaction Time (TEGECMOLIVER) 8.0 4.3 - 8.3 minutes 10/27/2024 9:39 AM EDT [facility] Citrated Kaolin Maximum Amplitude (TEGECMOLIVER) 52.7 52.0 - 69.0 mm 10/27/2024 9:39 AM EDT [facility] Citrated Functional Fibrinogen W/Heparinase Maximum Amplitude(TEGEC MOLIVER) 19.0 15.0 - 34.0 mm 10/27/2024 9:39 AM EDT [facility] Citrated Rapid Teg W/Heparinase Maximum Amplitude (TEGECMOLIVER) 49.5(L) 53.0 - 69.0 mm 10/27/2024 9:39 AM EDT [facility] Citrated Kaolin w/Heparinase Percent Lysis (TEGECMOLIVER) 0.0 0.0 - 3.2 % 10/27/2024 9:39 AM EDT [facility] Whole Blood (Citrate) 10/27/2024 8:00 AM EDT 10/27/2024 8:19 AM EDT Kemar Sahni MD LAB BLOOD ORDERABLES Final Result Performing Organization Address City/[facility]/ZIP Co de Phone Number [facility] [address] [facility]. [address] * (ABNORMAL) Katie-Watkins virus VCA IgG Antibody (10/27/2024 8:00 AM EDT) Pathologist [facility] EBV VCA IgG Positive( A) Negative 10/27/2024 11:30 AM EDT [facility] Comment:Presence of detectab le VCA IgG antibodies. 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 EBV IGG NUM 314.00(H) 0.00 - 17.99 U/mL 10/27/2024 11:30 AM EDT [facility] Serum 10/27/2024 8:00 AM EDT 10/27/2024 8:20 AM EDT Kemar Sahni MD LAB BLOOD ORDERABLES Final Result [facility] [address] [place] [address] * Hemoglobin A1c (10/27/2024 8:00 AM EDT) Pathologist [facility] Hemoglobin A1C 5.0 4.0 - 5.6 % 10/27/2024 11:12 AM EDT [facility] Comment: Hemoglobin A1c Interpretation Guidelines: [...] Organization Address [facility] de Phone Number [facility] [address] [facility]. [address] * (ABNORMAL) POC Glucose Monitoring Device (10/27/2024 7:59 AM EDT) POC Glucose Monitoring Device 113(H) 70 - 100 mg/dL 10/27/2024 7:59 AM EDT [facility] Blood 10/27/2024 7:59 AM EDT 10/27/2024 7:59 AM EDT Harvey Domínguez III, MD POINT OF CARE TEST ORDERABLES Final Result Performing Organization Address [facility] Co de Phone Number [facility] [address] [facility]. [address] * X-ray Abdomen AP view (10/27/2024 [...] left chest wall. Findings communicated to Michela Szymanski, RN via telephone by Ag Garcia MD [...] and left chestwall. Findings communicated to Michela Szymanski, ЮЛИЯ via telephone by Ag Garcia MD on 10/27/2024 7:20 AM EDT. Approved by Ag Garcia MD on 10/27/2024 7:48 AM EDT I have personally reviewed the images and I agree with this report. Report Verified by: Lexx Hansen MD at 10/27/2024 7:49 AM EDT us Harvey Domínguez III, MD IMG DIAGNOSTIC IMAG ING ORDERABLES Final Result * Transfuse RBC (10/27/2024 6:29 AM EDT) us Ben Blake MD NURSING TREATMENT ORDERABLES - BLOOD ADMIN Final Result * Prepare Cryoprecipitate, 1 Units (10/27/2024 6:16 AM EDT) Product Code L2802R22 HCLL Unit Number [id number] HCLL Dispense Status Presumed Transfused_PT HCLL Blood Expiration Date [id number] HCLL Coding System [id number] HCLL Product Code C9701G06 HCLL Unit Number [id number] HCLL Dispense Status Presumed Transfused_PT HCLL Blood Expiration Date 239088407347 HCLL Coding System [id number] HCLL Blood Bank Product John Pina MD BLOOD BANK PRODUCT ORDERABLES F inal Result Performing Organization Address City/[facility]/ZIP Co de Phone Number HC[facility] * Prepare Platelets, leukoreduced, 1 Units (10/27/2024 6:16 AM EDT) Product Code M8279T20 [facility]LL Unit Number [id number] [facility]LL Dispense Status Presumed Transfused_PT [facility]LL Blood Expiration Date 775015845912 HCLL Coding System HJAG225 [facility] Blood Bank Product Eber Quinones MD BLOOD BANK PRODUCT ORDER PAL Final Result Performing Organization Address [facility]/ZIP Co de Phone Number [facility] * Prepare Cryoprecipitate, 1 Units (10/27/2024 6:16 AM EDT) Product Code O4760E53 [facility] Unit Number [id number] [facility]LL Dispense Status Presumed Transfused_PT [facility]LL Blood Expiration Date 494796041034 HCLL Coding System OTMA202 HCLL Product Code Y5193X70 HCLL Unit Number [id number] HCLL Dispense Status Presumed Transfused_PT HCLL Blood Expiration Date 609455055911 HCLL Coding System CHXN983 HCLL Blood Bank Product Eber Quinones MD BLOOD BANK PRODUCT ORDER PAL Final Result [facility] * Prepare Fresh Frozen Plasma, 10 Units (10/27/2024 6:16 AM EDT) Product Code F0360W28 HCLL Unit Number [id number] HCLL Dispense Status Presumed Transfused_PT HCLL Blood Expiration Date HCLL Coding System FLCX709 HCLL Product Code I6002T37 HCLL Unit Number [id number] HCLL Dispense Status Presumed Transfused_PT HCLL Blood Expiration Date HCLL Coding System KWWI703 HCLL Product Code P2137S23 HCLL Unit Number [id number] HCLL Dispense Status Presumed Transfused_PT HCLL Blood Expiration Date HCLL Coding System PHOT967 HCLL Product Code B5549T91 HCLL Unit Number [id number] HCLL Dispense Status Presumed Transfused_PT HCLL Blood Expiration Date HCLL Coding System CQUS598 HCLL Product Code V2903G27 HCLL Unit Number [id number] HCLL Dispense Status Released from Crossmatch_RE HCLL Blood Expiration Date HCLL Coding System SCEV081 HCLL Product Code H1340C59 HCLL Unit Number [id number] HCLL Dispense Status Released from Crossmatch_RE HCLL Blood Expiration Date HCLL Coding System AZLK201 HCLL Product Code M7659R15 HCLL Unit Number [id number] HCLL Dispense Status Presumed Transfused_PT HCLL Blood Expiration Date HCLL Coding System FORO181 HCLL Product Code S3162F37 HCLL Unit Number [id number] HCLL Dispense Status Presumed Transfused_PT HCLL Blood Expiration Date HCLL Coding System RCBK987 HCLL Product Code D4092Z11 HCLL Unit Number [id number] HCLL Dispense Status Presumed Transfused_PT HCLL Blood Expiration Date HCLL Coding System TAVU920 HCLL Product Code J3081J65 HCLL Unit Number [id number] HCLL Dispense Status Presumed Transfused_PT HCLL Blood Expiration Date HCLL Coding System IAME170 HCLL Blood Bank Product Leandra Og MD BLOOD BANK PRODUCT ORD ERABLES Final Result Performing Organization Address City/[facility]/ZIP Co de Phone Number [facility] * Prepare Platelets, leukoreduced, 1 Units (10/27/2024 6:16 AM EDT) Product Code B8021O16 HCLL Unit Number [id number] HCLL Dispense Status Presumed Transfused_PT HCLL Blood Expiration Date 083786435423 HCLL Coding System ZAZS129 HCLL Blood Bank Product Ben Blake MD BLOOD BANK PRODUCT ORDERABLES Final Result Performing Organization Address [facility] de Phone Number HC[facility] * Prepare Fresh Frozen Plasma (10/27/2024 6:15 AM EDT) Product Code O8605P84 HCLL Unit Number [id number] HCLL Dispense Status Presumed Transfused_PT HCLL Blood Expiration Date HCLL Coding System XOOM539 HCLL Product Code Y1374Q32 HCLL Unit Number [id number] HCLL Dispense Status Released from Crossmatch_RE HCLL Blood Expiration Date HCLL Coding System NQAT535 HCLL Product Code A1208B55 HCLL Unit Number [id number] HCLL Dispense Status Presumed Transfused_PT HCLL Blood Expiration Date HCLL Coding System PUMK869 HCLL Product Code P1379G89 HCLL Unit Number [id number] HCLL Dispense Status Presumed Transfused_PT HCLL Blood Expiration Date HCLL Coding System ZMXK085 HCLL Product Code F3859P18 HCLL Unit Number [id number] HCLL Dispense Status Released from Crossmatch_RE HCLL Blood Expiration Date HCLL Coding System QELF349 HCLL us Attending Provider Unknown BLOOD BANK PRODUCT OR DERABLES Final Result Performing Organization Address [facility] Co de Phone Number [facility] * Prepare RBC, leukoreduced (10/27/2024 6:15 AM EDT) Product Code T2893H85 HCLL Unit Number [id number] HCLL Dispense Status Presumed Transfused_PT HCLL Blood Expiration Date 819417005746 HCLL Coding System NWJB956 HCLL Product Code G0085K34 HCLL Unit Number [id number] HCLL Dispense Status Released from Crossmatch_RE HCLL Blood Expiration Date HCLL Coding System GYGP401 HCLL Product Code F6848K46 HCLL Unit Number [id number] HCLL Dispense Status Released from Crossmatch_RE HCLL Blood Expiration Date 809717197440 HCLL Coding System XPGF277 HCLL Product Code V8034U39 HCLL Unit Number [id number] HCLL Dispense Status Released from Crossmatch_RE HCLL Blood Expiration Date 102133471169 HCLL Coding System FQLP189 HCLL Product Code V0569E40 HCLL Unit Number [id number] HCLL Dispense Status Released from Crossmatch_RE HCLL Blood Expiration Date 541357439523 HCLL Coding System CCWF440 HCLL us Attending Provider Unknown BLOOD BANK PRODUCT OR DERABLES Final Result [facility] * Prepare RBC, leukoreduced, 10 Units (10/27/2024 6:15 AM EDT) Product Code B0164S99 HCLL Unit Number [id number] HCLL Dispense Status Presumed Transfused_PT HCLL Blood Expiration Date 581463669705 HCLL Coding System NFKQ502 HCLL Product Code V5120D44 HCLL Unit Number [id number] HCLL Dispense Status Presumed Transfused_PT HCLL Blood Expiration Date 677246917995 HCLL Coding System VYJU963 HCLL Product Code K2047I70 HCLL Unit Number [id number] HCLL Dispense Status Presumed Transfused_PT HCLL Blood Expiration Date 707177840003 HCLL Coding System FZVR866 HCLL Product Code V9302U48 HCLL Unit Number [id number] HCLL Dispense Status Presumed Transfused_PT HCLL Blood Expiration Date 624548399032 HCLL Coding System BACL852 HCLL Product Code G7030A13 HCLL Unit Number [id number] HCLL Dispense Status Presumed Transfused_PT HCLL Blood Expiration Date 570488213842 HCLL Coding System DCSE584 HCLL Product Code I1590U33 HCLL Unit Number [id number] HCLL Dispense Status Presumed Transfused_PT HCLL Blood Expiration Date 830791329573 HCLL Coding System MPBH459 HCLL Product Code N2015W72 HCLL Unit Number [id number] HCLL Dispense Status Presumed Transfused_PT HCLL Blood Expiration Date 890867472109 HCLL Coding System JKXP421 HCLL Product Code N3452Q48 HCLL Unit Number [id number] HCLL Dispense Status Presumed Transfused_PT HCLL Blood Expiration Date 163986596332 HCLL Coding System GZRI073 HCLL Product Code N0139T77 HCLL Unit Number [id number] HCLL Dispense Status Presumed Transfused_PT HCLL Blood Expiration Date 164129833356 HCLL Coding System TRGU522 HCLL Product Code A9211B95 HCLL Unit Number [id number] HCLL Dispense Status Presumed Transfused_PT HCLL Blood Expiration Date 230268736318 HCLL Coding System HGAO119 HCLL Blood Bank Product us Leandra Og MD BLOOD BANK PRODUCT ORD ERABLES Final Result [facility] * Transfuse Platelets (10/27/2024 6:09 AM EDT) Ben Blake MD NURSING TREATMENT ORDERABLES - BLOOD ADMIN Final Result * (ABNORMAL) Arterial Blood Gas Panel (10/27/2024 6:09 AM EDT) O2Sat (ABGP) 100 10/27/2024 6:17 AM EDT [facility] pH (ABGP) 7.30(L) 7.35 - 7.45 10/27/2024 6:17 AM EDT [facility] PCO2 (ABGP) 41 35 - 45 mm Hg 10/27/2024 6:17 AM EDT [facility] PO2 (ABGP) 192(H) 80 - 100 mm Hg 10/27/2024 6:17 AM EDT [facility] HCO3 (ABGP) 21(L) 22 - 26 mmol/L 10/27/2024 6:17 AM EDT [facility] CO2 Content (ABGP) 22(L) 23 - 27 mmol/L 10/27/2024 6:17 AM EDT [facility] Base Excess (ABGP) -5.7(L) -2.0 - 3.0 mmol/L 10/27/2024 6:17 AM EDT [facility] Sodium (ABGP) 138 136 - 146 mEq/L 10/27/2024 6:17 AM EDT [facility] Potassium (ABGP) 3.3(L) 3.5 - 5.0 mEq/L 10/27/2024 6:17 AM EDT [facility] Comment:In the event of in-v itro hemolysis, potassium results may be falsely elevated. Always interpret lab results in conjunction with clinical findings. If hemolysis is suspected, a serum sample may be collected for repeat assessment of potassium. Calcium, Free (ABGP) 5.28 4.50 - 5.30 mg/dL 10/27/2024 6:17 AM EDT [facility] Glucose (ABGP) 112(H) 70 - 100 mg/dL 10/27/2024 6:17 AM EDT [facility] Comment:There is interferenc e with whole blood glucose results on this method when Hematocrit is <25% or >60%. HCT (ABGP) 20.0(L) 40.0 - 52.0 % 10/27/2024 6:17 AM EDT [facility] HGB (ABGP) 6.5(L) 14.0 - 18.0 g/dL 10/27/2024 6:17 AM EDT [facility] %HBO2 (ABGP) 96.8 95.0 - 98.0 % 10/27/2024 6:17 AM EDT [facility] Carboxyhgb (ABGP) 2.1 % 025 6:17 AM EDT [facility] Comment: CARBOXYHEMOGLOBIN (CO) REFERENCE RANGES: Non-Smokers: <2 % Smokers: <8 % TOXIC: >20 % Methemoglobin (ABGP) 1.0 0.0 - 1.5 % 10/27/2024 6:17 AM EDT [facility] Reduced Hemoglobin (ABGP) 0.2 0.0 - 5.0 % 10/27/2024 6:17 AM EDT [facility] Lactic Acid (ABGP) 0.4(L) 0.5 - 1.6 mmol/L 10/27/2024 6:17 AM EDT [facility] Blood, Arterial 10/27/2024 6 :09 AM EDT 10/27/2024 6:14 AM EDT Ben Blake MD LAB BLOOD ORDERABLES Final Re sult [facility] [address] [place] [address], [facility] * Transfuse Fresh Frozen Plasma (10/27/2024 5:49 AM EDT) us Ben Blake MD NURSING TREATMENT ORDERABLES - BLOOD ADMIN Final Result * Transfuse Cryoprecipitate (10/27/2024 4:56 AM EDT) us Ben Blake MD NURSING TREATMENT ORDERABLES - BLOOD ADMIN Final Result * Transfuse Cryoprecipitate (10/27/2024 4:49 AM EDT) us Ben Blake MD NURSING TREATMENT ORDERABLES - BLOOD ADMIN Final Result * (ABNORMAL) POC Glucose Monitoring Device (10/27/2024 4:46 AM EDT) [facility] POC Glucose Monitoring Device 124(H) 70 - 100 mg/dL 10/27/2024 4:47 AM EDT [facility] Blood 10/27/2024 4:46 AM EDT 10/27/2024 4:47 AM EDT Harvey Domínguez III, MD POINT OF CARE TEST ORDERABLES Final Result Performing Organization Address City/State/[facility] Co de Phone Number [facility] [address] [place], [place] [address] * Transfuse Platelets (10/27/2024 4:24 AM EDT) Ben Blake MD NURSING TREATMENT ORDERABLES - BLOOD ADMIN Final Result * Transfuse Fresh Frozen Plasma (10/27/2024 4:07 AM EDT) Ben Blake MD NURSING TREATMENT ORDERABLES - BLOOD ADMIN Final Result * Transfuse RBC (10/27/2024 3:52 AM EDT) Ben Blake MD NURSING TREATMENT ORDERABLES - BLOOD ADMIN Final Result * (ABNORMAL) Arterial Blood Gas Panel (10/27/2024 3:07 AM EDT) [facility] O2Sat (ABGP) 100 10/27/2024 3:21 AM EDT [facility] pH (ABGP) 7.32(L) 7.35 - 7.45 10/27/2024 3:21 AM EDT [facility] PCO2 (ABGP) 38 35 - 45 mm Hg 10/27/2024 3:21 AM EDT [facility] PO2 (ABGP) 176(H) 80 - 100 mm Hg 10/27/2024 3:21 AM EDT [facility] HCO3 (ABGP) 20(L) 22 - 26 mmol/L 10/27/2024 3:21 AM EDT [facility] CO2 Content (ABGP) 21(L) 23 - 27 mmol/L 10/27/2024 3:21 AM EDT [facility] Base Excess (ABGP) -6.0(L) -2.0 - 3.0 mmol/L 10/27/2024 3:21 AM EDT [facility] Sodium (ABGP) 138 136 - 146 mEq/L 10/27/2024 3:21 AM [facility] Potassium (ABGP) 3.0(L) 3.5 - 5.0 mEq/L 10/27/2024 3:21 AM [facility] Comment:In the event of in-v itro hemolysis, potassium results may be falsely elevated. Always interpret lab results in conjunction with clinical findings. If hemolysis is suspected, a serum sample may be collected for repeat assessment of potassium. Calcium, Free (ABGP) 5.28 4.50 - 5.30 mg/dL 10/27/2024 3:21 AM [facility] Glucose (ABGP) 108(H) 70 - 100 mg/dL 10/27/2024 3:21 AM [facility] Comment:There is interferenc e with whole blood glucose results on this method when Hematocrit is <25% or >60%. HCT (ABGP) 22.0(L) 40.0 - 52.0 % 10/27/2024 3:21 AM T [facility] HGB (ABGP) 7.3(L) 14.0 - 18.0 g/dL 10/27/2024 3:21 AM [facility] %HBO2 (ABGP) 97.3 95.0 - 98.0 % 10/27/2024 3:21 AM [facility] Carboxyhgb (ABGP) 1.9 % 025 3:21 AM [facility] Comment: CARBOXYHEMOGLOBIN (CO) REFERENCE RANGES: Non-Smokers: <2 % Smokers: <8 % TOXIC: >20 % Methemoglobin (ABGP) 0.8 0.0 - 1.5 % 10/27/2024 3:21 AM [facility] Reduced Hemoglobin (ABGP) 0.0 0.0 - 5.0 % 10/27/2024 3:21 AM [facility] Lactic Acid (ABGP) 0.3(L) 0.5 - 1.6 mmol/L 10/27/2024 3:21 AM [facility] Blood, Arterial 10/27/2024 3 :07 AM EDT 10/27/2024 3:14 AM EDT us Ben Blake MD LAB BLOOD ORDERABLES Final Re sult [facility] [address] [place] [address], [facility] * Surgical Pathology Exam (10/27/2024 2:38 AM EDT) Tissue LEFT KIDNEY STRUCTURE / Unknown 10/27/2024 2:38 AM EDT Narrative [facility] - 10/27/2024 12:00 AM EDT CASE: [id number] PATIENT: BLAIR GILBERT Clinical History: Transplant kidney with bile duct reconstruction Pre-Operative Diagnosis: Acute kidney injury superimposed on CKD Post-Operative Diagnosis: None Given Specimen(s) Submitted: A. baseline renal biopsy ; B. right lobe liver biopsy; C. left lobe liver biopsy CPT Code(s): 86710 X 1; 50877 X 2; 38539 X 4 Additional Information: FINAL DIAGNOSIS: A. [...] in formalin, labeled with the patient's name JustinBlair reyes and baseline renal biopsy , is a 1.3 x 0.5 x 0.4 cm wedge of apparent renal parenchyma, which is entirely submitted in cassette [id number]. (NAA Mckeon/johnnie) B. Received in formalin, labeled with the patient's name Lan Gilbertke and right lobe liver biopsy are two green-brown tissue cores measuring 1.8 and 2.0 cm in length, each with a diameter of 0.1 cm, which are entirely submitted between blue biopsy sponges in cassette [facility]-[id number] B1-B2. (NAA Mckeon/ns) C. Received in formalin, labeled with the patient's name Blair Gilbert and left lobe liver biopsy are two green-georges tissue cores measuring 1.2 and 1.4 cm in length, each with a diameter of 0.1 cm, which are entirely submitted between blue biopsy sponges in cassette [facility]-[id number] C1-C2. (NAA Mckeon/ns) Microscopic Description: I, the attending pathologist, have personally reviewed all prosector/resident work and pathology slides to determine final diagnosis. Control Materials Reacted Appropriately. Final Diagnosis performed by CLARE FALL MD Pathologist Electronically signed 10/31/2024 01:07:09 PM The Pathologist signing this report is located at [facility], [address] [place] [address], [id number], , CLIA ID: [id number] ADDENDUM: A. Kidney, allograft, baseline, wedge biopsy: [...] Pathologist signing this report is located at [facility], [address] [place] [address], [id number], , CLIA ID: [id number] us Kemar Sahni MD PATHOLOGY/CYTOLOGY ORDERABL ES Edited Result - Final [facility] * Anaerobic culture (10/27/2024 2:15 AM EDT) Culture Result No Anaerobes Isolated in 5 Days [facility] Fluid SPECIMEN FROM KIDNEY / Unknown 10/27/2024 2:15 AM EDT 10/27/2024 4:24 AM EDT Narrative [facility] - 10/31/2024 11:43 AM EDT 1) perfusate Harvey Domínguez III, MD MICROBIOLOGY - GENE RAL ORDERABLES Final Result Performing Organization Address City/[facility] Co de Phone Number [facility] [address] [facility]. [address] * Routine Culture plus Stain (10/27/2024 2:15 AM EDT) Gram Stain Result No Polymorphonuclear Leukocytes Seen [facility] Gram Stain Result No Organisms Seen; [facility] Culture Result No Growth After 3 Days [facility] Fluid SPECIMEN FROM KIDNEY / Unknown 10/27/2024 2:15 AM EDT 10/27/2024 4:24 AM EDT Narrative [facility] - 10/30/2024 9:26 AM EDT 1) perfusate us Harvey Domínguez III, MD MICROBIOLOGY - GENE RAL ORDERABLES Final Result Performing Organization Address [facility] Co de Phone Number [facility] [address] [facility]. [address] * Transfuse Platelets Transfusion Rate: Per dept routine (10/27/2024 1:52 AM EDT) John Pina MD NURSING TREATMENT ORDERABLES - BLOOD ADMIN Final Result Performing Organization Address City/[facility]/ZIP Co de Phone Number EXTERNAL * Transfuse Platelets Transfusion Rate: Per dept routine, 1 Units (10/27/2024 1:52 AM EDT) Result [facility] John Pina MD NURSING TREATMENT ORDERABLES - BLOOD ADMIN Final Result Performing Organization Address [facility] Co de Phone Number EXTERNAL * (ABNORMAL) TEG-Standard Global Hemostasis (Rapid TEG with Heparin Effect, Contains a Baseline TEG) (10/27/2024 1:51 AM EDT) Citrated Kaolin Reaction Time (TEGHEPARINASE) 10.6(H) 4.6 - 9.1 minutes 10/27/2024 2:44 AM EDT [facility] Citrated Rapid Teg Maximum Amplitude (TEGHEPARINASE) 42.3(L) 52.0 - 70.0 mm 10/27/2024 2:44 AM EDT [facility] Citrated Functional Fibrinogen Maximum Amplitude (TEGHEPARINASE) 15.0 15.0 - 32.0 mm 10/27/2024 2:44 AM EDT [facility] Citrated Kaolin W/Heparinase Reaction Time (TEGHEPARINASE) 10.5(H) 4.3 - 8.3 minutes 10/27/2024 2:44 AM EDT [facility] Citrated Kaolin K-Time (TEGHEPARINASE) 2.9(A) 0.8 - 2.1 minutes 10/27/2024 2:44 AM EDT [facility] Citrated Kaolin Angle (TEGHEPARINASE) 60.4(A) 63.0 - 78.0 degrees 10/27/2024 2:44 AM EDT [facility] Citrated Kaolin Maximum Amplitude (TEGHEPARINASE) 42.9(L) 52.0 - 69.0 mm 10/27/2024 2:44 AM EDT [facility] Citrated Functional Fibrinogen- Fibrinogen Level (TEGHEPARINASE) 273.7(L) 278.0 - 581.0 mg/dL 10/27/2024 2:44 AM EDT [facility] Whole Blood (Citrate) 10/27/2024 1:51 AM EDT 10/27/2024 2:03 AM EDT us John Pina MD LAB BLOOD ORDERABLES Final Resu lt [facility] [address] [facility] [place] [address], [facility] * (ABNORMAL) POC Glucose Monitoring Device (10/27/2024 1:50 AM EDT) POC Glucose Monitoring Device 121(H) 70 - 100 mg/dL 10/27/2024 1:51 AM EDT [facility] Blood 10/27/2024 1:50 AM EDT 10/27/2024 1:51 AM EDT us Harvey Domínguez III, MD POINT OF CARE TEST ORDERABLES Final Result Performing Organization Address [facility] Co de Phone Number [facility] [address] [facility]. [address] * Transfuse Cryoprecipitate Transfusion Rate: Per dept routine (10/27/2024 1:25 AM EDT) us John Pina MD NURSING TREATMENT ORDERABLES - BLOOD ADMIN Final Result Performing Organization Address [facility] de Phone Number EXTERNAL * Transfuse Cryoprecipitate Transfusion Rate: Per dept routine, 1 Units (10/27/2024 1:25 AM EDT) us John Pina MD NURSING TREATMENT ORDERABLES - BLOOD ADMIN Final Result Performing Organization Address [facility] Co de Phone Number EXTERNAL * (ABNORMAL) POC Glucose Monitoring Device (10/27/2024 1:21 AM EDT) [facility] POC Glucose Monitoring Device 123(H) 70 - 100 mg/dL 10/27/2024 1:22 AM EDT [facility] Blood 10/27/2024 1:21 AM EDT 10/27/2024 1:21 AM EDT us Harvey Domínguez III, MD POINT OF CARE TEST ORDERABLES Final Result Performing Organization Address [facility] Co de Phone Number [facility] [address] [facility]. [address] * Transfuse Fresh Frozen Plasma Transfusion Rate: Per dept routine (10/27/2024 1:03 AM EDT) us John Pina MD NURSING TREATMENT ORDERABLES - BLOOD ADMIN Final Result Performing Organization Address City/[facility] Co de Phone Number EXTERNAL * Transfuse Fresh Frozen Plasma Transfusion Rate: Per dept routine, 1 Units (10/27/2024 1:03 AM EDT) John Pina MD NURSING TREATMENT ORDERABLES - BLOOD ADMIN Final Result EXTERNAL * Calcium Free, Serum (10/27/2024 12:13 AM EDT) Free Calcium, Ser 5.20 4.40 - 5.40 mg/dL 10/27/2024 12:37 AM EDT [facility] Comment:Free calcium levels vary inversely with pH by approximately 5% for each 0.1 unit of pH change. Assay results have been normalized to pH = 7.40. Serum 10/27/2024 12:1 3 AM EDT 10/27/2024 12:29 AM EDT Narrative [facility] - 10/27/2024 12:37 AM EDT This test has been developed and its performance characteristics determined by [facility] which is certified under the [...] Organization Address [facility] Co de Phone Number [facility] [address] [place] [address], [facility] * (ABNORMAL) Blood Gas, Arterial, STAT (10/27/2024 12:13 AM EDT) O2 Sat, Arterial 100 10/27/2024 12:23 AM EDT [facility] FIO2 30 10/27/2024 12:23 AM EDT [facility] pH, Arterial 7.32(L) 7.35 - 7.45 10/27/2024 12:23 AM EDT [facility] pCO2, Arterial 37 35 - 45 mm Hg 10/27/2024 12:23 AM EDT [facility] pO2, Arterial 137(H) 80 - 100 mm Hg 10/27/2024 12:23 AM EDT [facility] HCO3, Arterial 20(L) 22 - 26 mmol/L 10/27/2024 12:23 AM EDT [facility] CO2 Content,Arteri al 20(L) 23 - 27 mmol/L 10/27/2024 12:23 AM EDT [facility] Base Excess, Arterial -6.4(L) -2.0 - 3.0 mmol/L 10/27/2024 12:23 AM EDT [facility] %HBO2, Arterial 96.2 95.0 - 98.0 % 10/27/2024 12:23 AM EDT [facility] Carboxyhemoglo bin, Arterial 1.9 % 10/27/2024 12:23 AM EDT [facility] Comment: CARBOXYHEMOGLOBIN (CO) REFERENCE RANGES: Non-Smokers: <2 % Smokers: <8 % TOXIC: >20 % Methemoglobin, Arterial 1.5 0.0 - 1.5 % 10/27/2024 12:23 AM EDT [facility] Reduced hemoglobin, Arterial 0.4 0.0 - 5.0 % 10/27/2024 12:23 AM EDT [facility] Blood, Arterial 10/27/2024 1 2:13 AM EDT 10/27/2024 12:18 AM EDT us John Pina MD LAB BLOOD ORDERABLES Final Resu lt [facility] [address] [place] [address], [facility] * (ABNORMAL) TEG-Bypass/ECMO/Liver HN (Factor function, Platelet/Fibrin Clot Strength w/Clot Breakdown, Heparinase In All Channels) (10/27/2024 12:13 AM EDT) Citrated Kaolin Reaction Time (TEGECMOLIVER) 9.1 4.6 - 9.1 minutes 10/27/2024 1:43 AM EDT [facility] Citrated Kaolin W/Heparinase Reaction Time (TEGECMOLIVER) 9.7(H) 4.3 - 8.3 minutes 10/27/2024 1:43 AM EDT [facility] Citrated Kaolin Maximum Amplitude (TEGECMOLIVER) <40.0(L) 52.0 - 69.0 mm 10/27/2024 1:43 AM EDT [facility] Citrated Functional Fibrinogen W/Heparinase Maximum Amplitude(TEGEC MOLIVER) 11.9(L) 15.0 - 34.0 mm 10/27/2024 1:43 AM EDT [facility] Citrated Rapid Teg W/Heparinase Maximum Amplitude (TEGECMOLIVER) 31.6(L) 53.0 - 69.0 mm 10/27/2024 1:43 AM EDT [facility] Citrated Kaolin w/Heparinase Percent Lysis (TEGECMOLIVER) 0.0 0.0 - 3.2 % 10/27/2024 1:43 AM EDT [facility] Whole Blood (Citrate) 10/27/2024 12:13 AM EDT 10/27/2024 12:18 AM EDT Kemar Sahni MD LAB BLOOD ORDERABLES Final Result Performing Organization Address City/[facility]/ZIP Co de Phone Number [facility] [address] * (ABNORMAL) Lactic Acid (10/27/2024 12:13 AM EDT) Lactate 0.2(L) 0.5 - 2.2 mmol/L 10/27/2024 12:59 AM EDT [facility] Plasma 10/27/2024 12:1 3 AM EDT 10/27/2024 12:31 AM EDT Kemar Sahni MD LAB BLOOD ORDERABLES Final Result [facility] [address] * Magnesium (10/27/2024 12:13 AM EDT) Magnesium 1.8 1.5 - 2.5 mg/dL 10/27/2024 12:52 AM EDT [facility] Plasma 10/27/2024 12:1 3 AM EDT 10/27/2024 12:29 AM EDT Kemar Sahni MD LAB BLOOD ORDERABLES Final Result [facility] [address] * (ABNORMAL) Hepatic Function Panel (10/27/2024 12:13 AM EDT) Total Bilirubin 1.6(H) 0.0 - 1.5 mg/dL 10/27/2024 12:52 AM EDT [facility] Bilirubin, Direct 1.17(H) 0.00 - 0.40 mg/dL 10/27/2024 12:52 AM EDT [facility] AST 157(H) 13 - 39 U/L 10/27/2024 12:52 AM EDT [facility] ALT 261(H) 7 - 52 U/L 10/27/2024 12:52 AM EDT [facility] Alkaline Phosphatase 26(L) 36 - 125 U/L 10/27/2024 12:52 AM EDT [facility] Total Protein 3.8(L) 6.4 - 8.9 g/dL 10/27/2024 12:52 AM EDT [facility] Albumin 2.8(L) 3.5 - 5.7 g/dL 10/27/2024 12:52 AM EDT [facility] Bilirubin, Indirect 0.43 0.00 - 1.10 mg/dL 10/27/2024 12:52 AM EDT [facility] Plasma 10/27/2024 12:1 3 AM EDT 10/27/2024 12:29 AM EDT Kemar Sahni MD LAB BLOOD ORDERABLES Final Result [facility] [address] * (ABNORMAL) Protime-INR (10/27/2024 12:13 AM EDT) Protime 18.6(H) 12.1 - 15.1 seconds 10/27/2024 12:43 AM EDT [facility] INR 1.5(H) 0.9 - 1.1 10/27/2024 12:43 AM EDT [facility] Comment: RECOMMENDED THERAPEUTIC RANGES USING INR : Stable oral anticoagulant therapy: 2.0 - 3.0 Mechanical prosthetic heart valve: 2.5 - 3.5 Recurrent acute myocardial infarction: 2.5 - 3.5 Plasma 10/27/2024 12:1 3 AM EDT 10/27/2024 12:29 AM EDT us Kemar Sahni MD LAB BLOOD ORDERABLES Final Result [facility] [address] [facility]. [place] [address], [facility] * (ABNORMAL) CBC (10/27/2024 12:13 AM EDT) WBC 5.0 3.8 - 10.8 10E3/uL 10/27/2024 12:59 AM EDT [facility] RBC 2.70(L) 4.20 - 5.80 10E6/uL 10/27/2024 12:59 AM EDT [facility] Hemoglobin 8.5(L) 13.2 - 17.1 g/dL 10/27/2024 12:59 AM EDT [facility] Hematocrit 23.9(L) 38.5 - 50.0 % 10/27/2024 12:59 AM EDT [facility] MCV 88.5 80.0 - 100.0 fL 10/27/2024 12:59 AM EDT [facility] MCH 31.5 27.0 - 33.0 pg 10/27/2024 12:59 AM EDT [facility] MCHC 35.6 32.0 - 36.0 g/dL 10/27/2024 12:59 AM EDT [facility] RDW 20.6(H) 11.0 - 15.0 % 10/27/2024 12:59 AM EDT [facility] Platelets 35(L) 140 - 400 10E3/uL 10/27/2024 12:59 AM EDT [facility] Comment: CNV Specimen checked for clots. None detected. MPV 7.6 7.5 - 11.5 fL 10/27/2024 12:59 AM EDT [facility] Whole Blood 10/27/2024 12:1 3 AM EDT 10/27/2024 12:29 AM EDT Kemar Sahni MD LAB BLOOD ORDERABLES Final Result [facility] [address] [place] [address], [facility] * (ABNORMAL) Renal Function Panel w/EGFR (10/27/2024 12:13 AM EDT) Sodium 141 133 - 146 mmol/L 10/27/2024 12:52 AM EDT [facility] Potassium 3.2(L) 3.5 - 5.3 mmol/L 10/27/2024 12:52 AM EDT [facility] Chloride 109 98 - 110 mmol/L 10/27/2024 12:52 AM EDT [facility] CO2 21 21 - 33 mmol/L 10/27/2024 12:52 AM EDT [facility] Anion Gap 11 3 - 16 mmol/L 10/27/2024 12:52 AM EDT [facility] BUN 64(H) 7 - 25 mg/dL 10/27/2024 12:52 AM EDT [facility] Creatinine 2.58(H) 0.60 - 1.30 mg/dL 10/27/2024 12:52 AM EDT [facility] Glucose 126(H) 70 - 100 mg/dL 10/27/2024 12:52 AM EDT [facility] Calcium 8.9 8.6 - 10.3 mg/dL 10/27/2024 12:52 AM EDT [facility] Phosphorus 5.3(H) 2.1 - 4.7 mg/dL 10/27/2024 12:52 AM EDT [facility] Albumin 2.8(L) 3.5 - 5.7 g/dL 10/27/2024 12:52 AM EDT [facility] Osmolality, Calculated 312(H) 278 - 305 mOsm/kg 10/27/2024 12:52 AM EDT [facility] EGFR 31 10/27/2024 12:52 AM EDT [facility] Comment:As of 2021, the estimated [...] Organization Address [facility]/ZIP Co de Phone Number [facility] [address] [facility]. [address] * (ABNORMAL) POC Glucose Monitoring Device (10/27/2024 12:08 AM EDT) POC Glucose Monitoring Device 121(H) 70 - 100 mg/dL 10/27/2024 12:08 AM EDT [facility] Blood 10/27/2024 12:0 8 AM EDT 10/27/2024 12:08 AM EDT Harvey Domínguez III, MD POINT OF CARE TEST ORDERABLES Final Result Performing Organization Address [facility]/ZIP Co de Phone Number [facility] [address] * (ABNORMAL) POC Glucose Monitoring Device (10/26/2024 11:15 PM EDT) POC Glucose Monitoring Device 120(H) 70 - 100 mg/dL 10/26/2024 11:15 PM EDT [facility] Blood 10/26/2024 11:1 5 PM EDT 10/26/2024 11:15 PM EDT Harvey Domínguez III, MD POINT OF CARE TEST ORDERABLES Final Result [facility] [address] [place], [place] [address] * (ABNORMAL) TEG-Bypass/ECMO/Liver HN (Factor function, Platelet/Fibrin Clot Strength w/Clot Breakdown, Heparinase In All Channels) (10/26/2024 10:36 PM EDT) [facility] Citrated Kaolin Reaction Time (TEGECMOLIVER) 10.0(H) 4.6 - 9.1 minutes 10/26/2024 11:53 PM EDT [facility] Citrated Kaolin W/Heparinase Reaction Time (TEGECMOLIVER) 10.2(H) 4.3 - 8.3 minutes 10/26/2024 11:53 PM EDT [facility] Citrated Kaolin Maximum Amplitude (TEGECMOLIVER) <40.0(L) 52.0 - 69.0 mm 10/26/2024 11:53 PM EDT [facility] Citrated Functional Fibrinogen W/Heparinase Maximum Amplitude(TEGEC MOLIVER) 11.3(L) 15.0 - 34.0 mm 10/26/2024 11:53 PM EDT [facility] Citrated Rapid Teg W/Heparinase Maximum Amplitude (TEGECMOLIVER) 41.8(L) 53.0 - 69.0 mm 10/26/2024 11:53 PM EDT [facility] Citrated Kaolin w/Heparinase Percent Lysis (TEGECMOLIVER) 0.0 0.0 - 3.2 % 10/26/2024 11:53 PM EDT [facility] Whole Blood (Citrate) 10/26/2024 10:36 PM EDT 10/26/2024 10:43 PM EDT Kemar Sahni MD LAB BLOOD ORDERABLES Final Result [facility] [address] [facility]. [address] * (ABNORMAL) POC Glucose Monitoring Device (10/26/2024 10:14 PM EDT) POC Glucose Monitoring Device 124(H) 70 - 100 mg/dL 10/26/2024 11:11 PM EDT [facility] Blood 10/26/2024 10:1 4 PM EDT 10/26/2024 11:11 PM EDT Harvey Domínguez III, MD POINT OF CARE TEST ORDERABLES Final Result Performing Organization Address City/[facility]/ZIP Co de Phone Number [facility] [address] [facility]. [address] * (ABNORMAL) POC Glucose Monitoring Device (10/26/2024 9:16 PM EDT) POC Glucose Monitoring Device 119(H) 70 - 100 mg/dL 10/26/2024 9:18 PM EDT [facility] Blood 10/26/2024 9:16 PM EDT 10/26/2024 9:18 PM EDT Harvey Domínguez III, MD POINT OF CARE TEST ORDERABLES Final Result [facility] [address] [facility]. [address] * (ABNORMAL) POC Glucose Monitoring Device (10/26/2024 8:05 PM EDT) POC Glucose Monitoring Device 113(H) 70 - 100 mg/dL 10/26/2024 8:06 PM EDT [facility] Blood 10/26/2024 8:05 PM EDT 10/26/2024 8:06 PM EDT Harvey Domínguez III, MD POINT OF CARE TEST ORDERABLES Final Result [facility] [address] * (ABNORMAL) POC Glucose Monitoring Device (10/26/2024 7:02 PM EDT) POC Glucose Monitoring Device 111(H) 70 - 100 mg/dL 10/26/2024 7:03 PM EDT [facility] Blood 10/26/2024 7:02 PM EDT 10/26/2024 7:03 PM EDT us Harvey Domínguez III, MD POINT OF CARE TEST ORDERABLES Final Result Performing Organization Address City/[facility]/ZIP Co de Phone Number [facility] [address] * Transfuse Cryoprecipitate Transfusion Rate: Per dept routine (10/26/2024 6:39 PM EDT) us John Pina MD NURSING TREATMENT ORDERABLES - BLOOD ADMIN Final Result EXTERNAL * Transfuse Cryoprecipitate Transfusion Rate: Per dept routine, 1 Units (10/26/2024 6:39 PM EDT) us John Pina MD NURSING TREATMENT ORDERABLES - BLOOD ADMIN Final Result Performing Organization Address City/[facility]/ZIP Co de Phone Number EXTERNAL * (ABNORMAL) POC Glucose Monitoring Device (10/26/2024 6:33 PM EDT) POC Glucose Monitoring Device 110(H) 70 - 100 mg/dL 10/26/2024 6:34 PM EDT [facility] Blood 10/26/2024 6:33 PM EDT 10/26/2024 6:34 PM EDT us Harvey Domínguez III, MD POINT OF CARE TEST ORDERABLES Final Result Performing Organization Address City/[facility]/ZIP Co de Phone Number [facility] [address] * Transfuse Cryoprecipitate Transfusion Rate: Per dept routine (10/26/2024 6:22 PM EDT) us John Pina MD NURSING TREATMENT ORDERABLES - BLOOD ADMIN Final Result Performing Organization Address [facility] de Phone Number EXTERNAL * Transfuse Cryoprecipitate Transfusion Rate: Per dept routine, 1 Units (10/26/2024 6:22 PM EDT) us John Pina MD NURSING TREATMENT ORDERABLES - BLOOD ADMIN Final Result Performing Organization Address [facility] Co de Phone Number EXTERNAL * (ABNORMAL) POC Glucose Monitoring Device (10/26/2024 6:17 PM EDT) POC Glucose Monitoring Device 104(H) 70 - 100 mg/dL 10/26/2024 6:18 PM EDT [facility] Blood 10/26/2024 6:17 PM EDT 10/26/2024 6:18 PM EDT Harvey Domínguez III, MD POINT OF CARE TEST ORDERABLES Final Result Performing Organization Address [facility] de Phone Number [facility] [address] [facility]. [address] * (ABNORMAL) POC Glucose Monitoring Device (10/26/2024 4:58 PM EDT) POC Glucose Monitoring Device 115(H) 70 - 100 mg/dL 10/26/2024 4:59 PM EDT [facility] Blood 10/26/2024 4:58 PM EDT 10/26/2024 4:58 PM EDT us Harvey Domínguez III, MD POINT OF CARE TEST ORDERABLES Final Result Performing Organization Address [facility] Co de Phone Number [facility] [address] [facility]. [address] * (ABNORMAL) Calcium Free, Serum (10/26/2024 4:42 PM EDT) Free Calcium, Ser 5.67(H) 4.40 - 5.40 mg/dL 10/26/2024 4:55 PM EDT [facility] Comment:Free calcium levels vary inversely with pH by approximately 5% for each 0.1 unit of pH change. Assay results have been normalized to pH = 7.40. Serum 10/26/2024 4:42 PM EDT 10/26/2024 4:47 PM EDT Narrative [facility] - 10/26/2024 4:55 PM EDT This test has been developed and its performance characteristics determined by [facility] which is certified under the [...] Organization Address [facility]/ZIP Co de Phone Number [facility] [address] * Repeat Crossmatch (Recipient Sample) (10/26/2024 4:42 PM EDT) Pathologist [facility] Repeat Cx - Recipient The request and specimen(s) for this test have been received and transported to the [facility] at [address] [place] [address]. The [facility] will report results directly to the client. 10/26/2024 4:49 PM EDT [facility] Whole Blood 10/26/2024 4:42 PM EDT 10/26/2024 4:49 PM EDT [facility] - 10/26/2024 4:49 PM EDT To be sent to [facility] for Donor [id number] cross match with Blair Gilbert Sveta Judge MD LAB BLOOD ORDERABLES Final Resu lt Performing Organization Address City/[facility]/ZIP Co de Phone Number [facility] [address] * (ABNORMAL) Lactic Acid (10/26/2024 4:42 PM EDT) Lactate 0.3(L) 0.5 - 2.2 mmol/L 10/26/2024 5:19 PM EDT [facility] Plasma 10/26/2024 4:42 PM EDT 10/26/2024 4:47 PM EDT Kemar Sahni MD LAB BLOOD ORDERABLES Final Result [facility] [address] [facility]. [address] * Magnesium (10/26/2024 4:42 PM EDT) Magnesium 2.0 1.5 - 2.5 mg/dL 10/26/2024 5:24 PM EDT [facility] Plasma 10/26/2024 4:42 PM EDT 10/26/2024 4:47 PM EDT Kemar Sahni MD LAB BLOOD ORDERABLES Final Result [facility] [address] [facility]. [address] * (ABNORMAL) Hepatic Function Panel (10/26/2024 4:42 PM EDT) Total Bilirubin 2.3(H) 0.0 - 1.5 mg/dL 10/26/2024 5:24 PM EDT [facility] Bilirubin, Direct 1.85(H) 0.00 - 0.40 mg/dL 10/26/2024 5:24 PM EDT [facility] AST 374(H) 13 - 39 U/L 10/26/2024 5:24 PM EDT [facility] ALT 458(H) 7 - 52 U/L 10/26/2024 5:24 PM EDT [facility] Alkaline Phosphatase 39 36 - 125 U/L 10/26/2024 5:24 PM EDT [facility] Total Protein 3.8(L) 6.4 - 8.9 g/dL 10/26/2024 5:24 PM EDT [facility] Albumin 3.0(L) 3.5 - 5.7 g/dL 10/26/2024 5:24 PM EDT [facility] Bilirubin, Indirect 0.45 0.00 - 1.10 mg/dL 10/26/2024 5:24 PM EDT [facility] Plasma 10/26/2024 4:42 PM EDT 10/26/2024 4:47 PM EDT Kemar Sahni MD LAB BLOOD ORDERABLES Final Result Performing Organization Address [facility] Co de Phone Number [facility] [address] * (ABNORMAL) Protime-INR (10/26/2024 4:42 PM EDT) Protime 20.3(H) 12.1 - 15.1 seconds 10/26/2024 5:12 PM EDT [facility] INR 1.7(H) 0.9 - 1.1 10/26/2024 5:12 PM EDT [facility] Comment: RECOMMENDED THERAPEUTIC RANGES USING INR : Stable oral anticoagulant therapy: 2.0 - 3.0 Mechanical prosthetic heart valve: 2.5 - 3.5 Recurrent acute myocardial infarction: 2.5 - 3.5 Plasma 10/26/2024 4:42 PM EDT 10/26/2024 4:47 PM EDT Kemar Sahni MD LAB BLOOD ORDERABLES Final Result Performing Organization Address City/[facility]/ZIP Co de Phone Number [facility] [address] [facility]. [address] * (ABNORMAL) CBC (10/26/2024 4:42 PM EDT) WBC 10.0 3.8 - 10.8 10E3/uL 10/26/2024 5:00 PM EDT [facility] RBC 3.44(L) 4.20 - 5.80 10E6/uL 10/26/2024 5:00 PM EDT [facility] Hemoglobin 10.5(L) 13.2 - 17.1 g/dL 10/26/2024 5:00 PM EDT [facility] Hematocrit 30.2(L) 38.5 - 50.0 % 10/26/2024 5:00 PM EDT [facility] MCV 87.7 80.0 - 100.0 fL 10/26/2024 5:00 PM EDT [facility] MCH 30.6 27.0 - 33.0 pg 10/26/2024 5:00 PM EDT [facility] MCHC 34.8 32.0 - 36.0 g/dL 10/26/2024 5:00 PM EDT [facility] RDW 20.1(H) 11.0 - 15.0 % 10/26/2024 5:00 PM EDT [facility] Platelets 48(L) 140 - 400 10E3/uL 10/26/2024 5:00 PM EDT [facility] Comment:Specimen checked for clots. None detected. MPV 7.9 7.5 - 11.5 fL 10/26/2024 5:00 PM EDT [facility] Whole Blood 10/26/2024 4:42 PM EDT 10/26/2024 4:47 PM EDT us Kemar Sahni MD LAB BLOOD ORDERABLES Final Result Performing Organization Address City/State/[facility] Co de Phone Number [facility] [address] * (ABNORMAL) Renal Function Panel w/EGFR (10/26/2024 4:42 PM EDT) Sodium 142 133 - 146 mmol/L 10/26/2024 5:24 PM EDT [facility] Potassium 3.3(L) 3.5 - 5.3 mmol/L 10/26/2024 5:24 PM EDT [facility] Chloride 109 98 - 110 mmol/L 10/26/2024 5:24 PM EDT [facility] CO2 23 21 - 33 mmol/L 10/26/2024 5:24 PM EDT [facility] Anion Gap 10 3 - 16 mmol/L 10/26/2024 5:24 PM EDT [facility] BUN 63(H) 7 - 25 mg/dL 10/26/2024 5:24 PM EDT [facility] Creatinine 2.85(H) 0.60 - 1.30 mg/dL 10/26/2024 5:24 PM EDT [facility] Glucose 127(H) 70 - 100 mg/dL 10/26/2024 5:24 PM EDT [facility] Calcium 8.9 8.6 - 10.3 mg/dL 10/26/2024 5:24 PM EDT [facility] Phosphorus 4.4 2.1 - 4.7 mg/dL 10/26/2024 5:24 PM EDT [facility] Albumin 3.0(L) 3.5 - 5.7 g/dL 10/26/2024 5:24 PM EDT [facility] Osmolality, Calculated 314(H) 278 - 305 mOsm/kg 10/26/2024 5:24 PM EDT [facility] EGFR 28 10/26/2024 5:24 PM EDT [facility] Comment:As of 2021, the estimated [...] Sahni MD LAB BLOOD ORDERABLES Final Result [facility] [address] * (ABNORMAL) POC Glucose Monitoring Device (10/26/2024 3:54 PM EDT) POC Glucose Monitoring Device 126(H) 70 - 100 mg/dL 10/26/2024 3:55 PM EDT [facility] Blood 10/26/2024 3:54 PM EDT 10/26/2024 3:55 PM EDT Harvey Domínguez III, MD POINT OF CARE TEST ORDERABLES Final Result Performing Organization Address [facility] Co de Phone Number [facility] [address] [facility]. [address] * (ABNORMAL) POC Glucose Monitoring Device (10/26/2024 3:06 PM EDT) POC Glucose Monitoring Device 144(H) 70 - 100 mg/dL 10/26/2024 3:14 PM EDT [facility] Blood 10/26/2024 3:06 PM EDT 10/26/2024 3:13 PM EDT Harvey Domínguez III, MD POINT OF CARE TEST ORDERABLES Final Result Performing Organization Address [facility] Co de Phone Number [facility] [address] [facility]. [address] * (ABNORMAL) TEG-Bypass/ECMO/Liver HN (Factor function, Platelet/Fibrin Clot Strength w/Clot Breakdown, Heparinase In All Channels) (10/26/2024 3:03 PM EDT) Citrated Kaolin Reaction Time (TEGECMOLIVER) 8.2 4.6 - 9.1 minutes 10/26/2024 4:43 PM EDT [facility] Citrated Kaolin W/Heparinase Reaction Time (TEGECMOLIVER) 8.2 4.3 - 8.3 minutes 10/26/2024 4:43 PM EDT [facility] Citrated Kaolin Maximum Amplitude (TEGECMOLIVER) 41.7(L) 52.0 - 69.0 mm 10/26/2024 4:43 PM EDT [facility] Citrated Functional Fibrinogen W/Heparinase Maximum Amplitude(TEGEC MOLIVER) 11.4(L) 15.0 - 34.0 mm 10/26/2024 4:43 PM EDT [facility] Citrated Rapid Teg W/Heparinase Maximum Amplitude (TEGECMOLIVER) 38.6(L) 53.0 - 69.0 mm 10/26/2024 4:43 PM EDT [facility] Citrated Kaolin w/Heparinase Percent Lysis (TEGECMOLIVER) 0.0 0.0 - 3.2 % 10/26/2024 4:43 PM EDT [facility] Whole Blood (Citrate) 10/26/2024 3:03 PM EDT 10/26/2024 3:10 PM EDT Jani Mooney MD LAB BLOOD ORDERABLES Final Resul t Performing Organization Address [facility] Co de Phone Number [facility] [address] * ECG 12 lead (MUSE) (10/26/2024 2:19 PM EDT) 10/26/2024 2:19 PM EDT Narrative MUSE - 10/27/2024 10:09 AM EDT Ventricular Rate: 105 BPM Atrial Rate: 105 BPM P-R Interval: 128 ms QRS Duration: 94 ms QT: 474 ms QTc: 626 ms R [place]: -37 degrees T [place]: 35 degrees Diagnosis Line: Critical Test Result: Long QTc ^ SINUS TACHYCARDIA ^ LEFT AXIS DEVIATION, LEFT ANTERIOR HEMIBLOCK ^ PROLONGED QT ^ ABNORMAL ECG ^ ^ Confirmed by MD HA, [facility] ([id number]) on 10/27/2024 10:09:25 AM Quinten Best MD ECG ORDERABLES Final Result Performing Organization Address City/[facility] Co de Phone Number MUSE * (ABNORMAL) POC Glucose Monitoring Device (10/26/2024 2:00 PM EDT) POC Glucose Monitoring Device 183(H) 70 - 100 mg/dL 10/26/2024 2:01 PM EDT [facility] Blood 10/26/2024 2:00 PM EDT 10/26/2024 2:01 PM EDT us Harvey Domínguez III, MD POINT OF CARE TEST ORDERABLES Final Result Performing Organization Address [facility] Co de Phone Number [facility] [address] * (ABNORMAL) POC Glucose Monitoring Device (10/26/2024 1:05 PM EDT) POC Glucose Monitoring Device 212(H) 70 - 100 mg/dL 10/26/2024 1:06 PM EDT [facility] Blood 10/26/2024 1:05 PM EDT 10/26/2024 1:06 PM EDT us Harvey Domínguez III, MD POINT OF CARE TEST ORDERABLES Final Result Performing Organization Address [facility] Co de Phone Number [facility] [address] * Transfuse Cryoprecipitate Has consent been obtained? Yes; Transfusion Rate: Per dept routine (10/26/2024 12:25 PM EDT) us Shay Sifuentes MD NURSING TREATMENT ORDERABLES - BLOOD ADMIN Final Result Performing Organization Address City/[facility] Co de Phone Number EXTERNAL * Transfuse Cryoprecipitate Has consent been obtained? Yes; Transfusion Rate: Per dept routine, 1 Units (10/26/2024 12:25 PM EDT) us Shay Sifuentes MD NURSING TREATMENT ORDERABLES - BLOOD ADMIN Final Result Performing Organization Address City/[facility] Co de Phone Number EXTERNAL * (ABNORMAL) POC Glucose Monitoring Device (10/26/2024 12:06 PM EDT) POC Glucose Monitoring Device 226(H) 70 - 100 mg/dL 10/26/2024 12:07 PM EDT [facility] Blood 10/26/2024 12:0 6 PM EDT 10/26/2024 12:07 PM EDT Harvey Domínguez III, MD POINT OF CARE TEST ORDERABLES Final Result Performing Organization Address City/[facility]/ZIP Co de Phone Number [facility] [address] [facility]. [address] * Transfuse Cryoprecipitate Transfusion Rate: Per dept routine (10/26/2024 12:01 PM EDT) John Pina MD NURSING TREATMENT ORDERABLES - BLOOD ADMIN Final Result Performing Organization Address City/[facility] Co de Phone Number EXTERNAL * Transfuse Cryoprecipitate Transfusion Rate: Per dept routine, 1 Units (10/26/2024 12:01 PM EDT) John Pina MD NURSING TREATMENT ORDERABLES - BLOOD ADMIN Final Result Performing Organization Address City/[facility] Co de Phone Number EXTERNAL * Lactic Acid (10/26/2024 10:48 AM EDT) Lactate 1.2 0.5 - 2.2 mmol/L 10/26/2024 11:27 AM EDT [facility] Plasma 10/26/2024 10:4 8 AM EDT 10/26/2024 10:53 AM EDT Kemar Sahni MD LAB BLOOD ORDERABLES Final Result Performing Organization Address City/[facility] Co de Phone Number [facility] [address] [facility] [place] [address], [facility] * Magnesium (10/26/2024 10:48 AM EDT) Magnesium 2.0 1.5 - 2.5 mg/dL 10/26/2024 11:26 AM EDT [facility] Plasma 10/26/2024 10:4 8 AM EDT 10/26/2024 10:53 AM EDT us Kemar Sahni MD LAB BLOOD ORDERABLES Final Result [facility] [address] * (ABNORMAL) Hepatic Function Panel (10/26/2024 10:48 AM EDT) Total Bilirubin 5.9(H) 0.0 - 1.5 mg/dL 10/26/2024 11:26 AM EDT [facility] Bilirubin, Direct 4.74(H) 0.00 - 0.40 mg/dL 10/26/2024 11:26 AM EDT [facility] AST 872(H) 13 - 39 U/L 10/26/2024 11:26 AM EDT [facility] ALT 736(H) 7 - 52 U/L 10/26/2024 11:26 AM EDT [facility] Alkaline Phosphatase 56 36 - 125 U/L 10/26/2024 11:26 AM EDT [facility] Total Protein 3.5(L) 6.4 - 8.9 g/dL 10/26/2024 11:26 AM EDT [facility] Albumin 2.5(L) 3.5 - 5.7 g/dL 10/26/2024 11:26 AM EDT [facility] Bilirubin, Indirect 1.16(H) 0.00 - 1.10 mg/dL 10/26/2024 11:26 AM EDT [facility] Plasma 10/26/2024 10:4 8 AM EDT 10/26/2024 10:53 AM EDT us Kemar Sahni MD LAB BLOOD ORDERABLES Final Result [facility] [address] [place] [address], [facility] * (ABNORMAL) Protime-INR (10/26/2024 10:48 AM EDT) Protime 23.0(H) 12.1 - 15.1 seconds 10/26/2024 11:26 AM EDT [facility] INR 2.0(H) 0.9 - 1.1 10/26/2024 11:26 AM EDT [facility] Comment: RECOMMENDED THERAPEUTIC RANGES USING INR : Stable oral anticoagulant therapy: 2.0 - 3.0 Mechanical prosthetic heart valve: 2.5 - 3.5 Recurrent acute myocardial infarction: 2.5 - 3.5 Plasma 10/26/2024 10:4 8 AM EDT 10/26/2024 10:53 AM EDT us Kemar Sahni MD LAB BLOOD ORDERABLES Final Result [facility] [address] [place] [address], [facility] * (ABNORMAL) CBC (10/26/2024 10:48 AM EDT) WBC 17.3(H) 3.8 - 10.8 10E3/uL 10/26/2024 11:14 AM EDT [facility] RBC 4.22 4.20 - 5.80 10E6/uL 10/26/2024 11:14 AM EDT [facility] Hemoglobin 12.8(L) 13.2 - 17.1 g/dL 10/26/2024 11:14 AM EDT [facility] Hematocrit 37.2(L) 38.5 - 50.0 % 10/26/2024 11:14 AM EDT [facility] MCV 88.3 80.0 - 100.0 fL 10/26/2024 11:14 AM EDT [facility] MCH 30.4 27.0 - 33.0 pg 10/26/2024 11:14 AM EDT [facility] MCHC 34.4 32.0 - 36.0 g/dL 10/26/2024 11:14 AM EDT [facility] RDW 20.8(H) 11.0 - 15.0 % 10/26/2024 11:14 AM EDT [facility] Platelets 109(L) 140 - 400 10E3/uL 10/26/2024 11:14 AM EDT [facility] MPV 7.5 7.5 - 11.5 fL 10/26/2024 11:14 AM EDT [facility] Whole Blood 10/26/2024 10:4 8 AM EDT 10/26/2024 10:53 AM EDT Kemar Sahni MD LAB BLOOD ORDERABLES Final Result [facility] [address] [place] [id number], [facility] * (ABNORMAL) Blood gas, arterial (10/26/2024 10:48 AM EDT) O2 Sat, Arterial 97 10/26/2024 10:54 AM EDT [facility] FIO2 35% 10/26/2024 10:54 AM EDT [facility] pH, Arterial 7.37 7.35 - 7.45 10/26/2024 10:54 AM EDT [facility] pCO2, Arterial 36 35 - 45 mm Hg 10/26/2024 10:54 AM EDT [facility] pO2, Arterial 91 80 - 100 mm Hg 10/26/2024 10:54 AM EDT [facility] HCO3, Arterial 22 22 - 26 mmol/L 10/26/2024 10:54 AM EDT [facility] CO2 Content,Arteri al 22(L) 23 - 27 mmol/L 10/26/2024 10:54 AM EDT [facility] Base Excess, Arterial -3.9(L) -2.0 - 3.0 mmol/L 10/26/2024 10:54 AM EDT [facility] %HBO2, Arterial 94.8(L) 95.0 - 98.0 % 10/26/2024 10:54 AM EDT [facility] Carboxyhemoglo bin, Arterial 1.9 % 10/26/2024 10:54 AM EDT [facility] Comment: CARBOXYHEMOGLOBIN (CO) REFERENCE RANGES: Non-Smokers: <2 % Smokers: <8 % TOXIC: >20 % Methemoglobin, Arterial 0.7 0.0 - 1.5 % 10/26/2024 10:54 AM EDT [facility] Reduced hemoglobin, Arterial 2.5 0.0 - 5.0 % 10/26/2024 10:54 AM EDT [facility] Blood, Arterial 10/26/2024 1 0:48 AM EDT 10/26/2024 10:52 AM EDT us Shay Sifuentes MD LAB BLOOD ORDERABLES Final Resu lt [facility] [address] [facility] [place] [address], [facility] * (ABNORMAL) Renal Function Panel w/EGFR (10/26/2024 10:48 AM EDT) Sodium 139 133 - 146 mmol/L 10/26/2024 11:26 AM EDT [facility] Potassium 2.9(LL) 3.5 - 5.3 mmol/L 10/26/2024 11:26 AM EDT [facility] Comment:K CRITICAL VALUE WAS PREVIOUSLY CALLED Chloride 107 98 - 110 mmol/L 10/26/2024 11:26 AM EDT [facility] CO2 22 21 - 33 mmol/L 10/26/2024 11:26 AM EDT [facility] Anion Gap 10 3 - 16 mmol/L 10/26/2024 11:26 AM EDT [facility] BUN 61(H) 7 - 25 mg/dL 10/26/2024 11:26 AM EDT [facility] Creatinine 2.78(H) 0.60 - 1.30 mg/dL 10/26/2024 11:26 AM EDT [facility] Glucose 253(H) 70 - 100 mg/dL 10/26/2024 11:26 AM EDT [facility] Calcium 8.8 8.6 - 10.3 mg/dL 10/26/2024 11:26 AM EDT [facility] Phosphorus 4.1 2.1 - 4.7 mg/dL 10/26/2024 11:26 AM EDT [facility] Albumin 2.5(L) 3.5 - 5.7 g/dL 10/26/2024 11:26 AM EDT [facility] Osmolality, Calculated 314(H) 278 - 305 mOsm/kg 10/26/2024 11:26 AM EDT [facility] EGFR 28 10/26/2024 11:26 AM EDT [facility] Comment:As of 2021, the estimated [...] [facility] [place]/ZIP Co de Phone Number [facility] [address] * (ABNORMAL) POC Glucose Monitoring Device (10/26/2024 10:47 AM EDT) [facility] POC Glucose Monitoring Device 234(H) 70 - 100 mg/dL 10/26/2024 10:48 AM EDT [facility] Blood 10/26/2024 10:4 7 AM EDT 10/26/2024 10:48 AM EDT us Harvey Domínguez III, MD POINT OF CARE TEST ORDERABLES Final Result Performing Organization Address City/[facility]/ZIP Co de Phone Number [facility] [address] * CARISA Rhythm Strip - Scan (10/26/2024 10:45 AM EDT) us Scanning Uchhim SCAN DOCS - NO RESULTS Final Res ult * (ABNORMAL) POC Glucose Monitoring Device (10/26/2024 10:08 AM EDT) POC Glucose Monitoring Device 235(H) 70 - 100 mg/dL 10/26/2024 10:09 AM EDT [facility] Blood 10/26/2024 10:0 8 AM EDT 10/26/2024 10:09 AM EDT Harvey Domínguez III, MD POINT OF CARE TEST ORDERABLES Final Result Performing Organization Address [facility] Co de Phone Number [facility] [address] * (ABNORMAL) POC Glucose Monitoring Device (10/26/2024 8:57 AM EDT) POC Glucose Monitoring Device 232(H) 70 - 100 mg/dL 10/26/2024 8:59 AM EDT [facility] Blood 10/26/2024 8:57 AM EDT 10/26/2024 8:58 AM EDT us Harvey Domínguez III, MD POINT OF CARE TEST ORDERABLES Final Result Performing Organization Address [facility] de Phone Number [facility] [address] * ECG 12 lead (MUSE) (10/26/2024 8:16 AM EDT) 10/26/2024 8:16 AM EDT Narrative MUSE - 10/27/2024 10:09 AM EDT Ventricular Rate: 112 BPM QRS Duration: 96 ms QT: 452 ms QTc: 616 ms R [place]: -41 degrees T [place]: 40 degrees Diagnosis Line: Critical Test Result: Long QTc ^ SINUS TACHYCARDIA OCCASIONAL PREMATURE VENTRICULAR COMPLEXES ^ LEFT AXIS DEVIATION, LEFT ANTERIOR HEMIBLOCK ^ PROLONGED QT ^ ABNORMAL ECG ^ ^ Confirmed by MD HA, ERICK ([id number]) on 10/27/2024 10:09:18 AM Shay Sifuentes MD ECG ORDERABLES Final Result Performing Organization Address City/[facility] Co de Phone Number MUSE * X-ray [...] - 100 mg/dL 10/26/2024 8:01 AM EDT [facility] Blood 10/26/2024 7:59 AM EDT 10/26/2024 8:00 AM EDT Harvey Domínguez III, MD POINT OF CARE TEST ORDERABLES Final Result [facility] [address] [place], [place] [address] * (ABNORMAL) TEG-Bypass/ECMO/Liver HN (Factor function, Platelet/Fibrin Clot Strength w/Clot Breakdown, Heparinase In All Channels) (10/26/2024 7:59 AM EDT) [facility] Citrated Kaolin Reaction Time (TEGECMOLIVER) 8.2 4.6 - 9.1 minutes 10/26/2024 10:36 AM EDT [facility] Citrated Kaolin W/Heparinase Reaction Time (TEGECMOLIVER) 8.1 4.3 - 8.3 minutes 10/26/2024 10:36 AM EDT [facility] Citrated Kaolin Maximum Amplitude (TEGECMOLIVER) 46.8(L) 52.0 - 69.0 mm 10/26/2024 10:36 AM EDT [facility] Citrated Functional Fibrinogen W/Heparinase Maximum Amplitude(TEGEC MOLIVER) 10.5(L) 15.0 - 34.0 mm 10/26/2024 10:36 AM EDT [facility] Citrated Rapid Teg W/Heparinase Maximum Amplitude (TEGECMOLIVER) 45.5(L) 53.0 - 69.0 mm 10/26/2024 10:36 AM EDT [facility] Citrated Kaolin w/Heparinase Percent Lysis (TEGECMOLIVER) 0.0 0.0 - 3.2 % 10/26/2024 10:36 AM EDT [facility] Whole Blood (Citrate) 10/26/2024 7:59 AM EDT 10/26/2024 8:05 AM EDT Shay Sifuentes MD LAB BLOOD ORDERABLES Final Resu lt Performing Organization Address [facility] Co de Phone Number [facility] [address] * (ABNORMAL) POC Glucose Monitoring Device (10/26/2024 6:12 AM EDT) POC Glucose Monitoring Device 196(H) 70 - 100 mg/dL 10/26/2024 6:13 AM EDT [facility] Blood 10/26/2024 6:12 AM EDT 10/26/2024 6:13 AM EDT Harvey Domínguez III, MD POINT OF CARE TEST ORDERABLES Final Result Performing Organization Address [facility] Co de Phone Number [facility] [address] * Lactic Acid (10/26/2024 6:10 AM EDT) Lactate 1.2 0.5 - 2.2 mmol/L 10/26/2024 6:39 AM EDT [facility] Plasma 10/26/2024 6:10 AM EDT 10/26/2024 6:19 AM EDT Sveta Judge MD LAB BLOOD ORDERABLES Final Resu lt Performing Organization Address [facility] Co de Phone Number [facility] [address] * (ABNORMAL) Fibrinogen (10/26/2024 6:10 AM EDT) Fibrinogen 160(L) 218 - 406 mg/dL 10/26/2024 6:41 AM EDT [facility] Plasma 10/26/2024 6:10 AM EDT 10/26/2024 6:26 AM EDT Sveta Judge MD LAB BLOOD ORDERABLES Final Resu lt Performing Organization Address City/[facility]/ZIP Co de Phone Number [facility] [address] [facility]. [address] * (ABNORMAL) Protime-INR (10/26/2024 6:10 AM EDT) Protime 25.0(H) 12.1 - 15.1 seconds 10/26/2024 6:41 AM EDT [facility] INR 2.2(H) 0.9 - 1.1 10/26/2024 6:41 AM EDT [facility] Comment: RECOMMENDED THERAPEUTIC RANGES USING INR : Stable oral anticoagulant therapy: 2.0 - 3.0 Mechanical prosthetic heart valve: 2.5 - 3.5 Recurrent acute myocardial infarction: 2.5 - 3.5 Plasma 10/26/2024 6:10 AM EDT 10/26/2024 6:26 AM EDT us Sveta Judge MD LAB BLOOD ORDERABLES Final Resu lt [facility] [address] [facility]. [address] * (ABNORMAL) Blood gas, arterial (10/26/2024 6:10 AM EDT) O2 Sat, Arterial 98 10/26/2024 6:23 AM EDT [facility] FIO2 60 10/26/2024 6:23 AM EDT [facility] pH, Arterial 7.27(L) 7.35 - 7.45 10/26/2024 6:23 AM EDT [facility] pCO2, Arterial 47(H) 35 - 45 mm Hg 10/26/2024 6:23 AM EDT [facility] pO2, Arterial 127(H) 80 - 100 mm Hg 10/26/2024 6:23 AM EDT [facility] HCO3, Arterial 21(L) 22 - 26 mmol/L 10/26/2024 6:23 AM EDT [facility] CO2 Content,Arteri al 23 23 - 27 mmol/L 10/26/2024 6:23 AM EDT [facility] Base Excess, Arterial -5.4(L) -2.0 - 3.0 mmol/L 10/26/2024 6:23 AM EDT [facility] %HBO2, Arterial 94.6(L) 95.0 - 98.0 % 10/26/2024 6:23 AM EDT [facility] Carboxyhemoglo bin, Arterial 2.0 % 10/26/2024 6:23 AM EDT [facility] Comment: CARBOXYHEMOGLOBIN (CO) REFERENCE RANGES: Non-Smokers: <2 % Smokers: <8 % TOXIC: >20 % Methemoglobin, Arterial 1.6(H) 0.0 - 1.5 % 10/26/2024 6:23 AM EDT [facility] Reduced hemoglobin, Arterial 1.8 0.0 - 5.0 % 10/26/2024 6:23 AM EDT [facility] Blood, Arterial 10/26/2024 6 :10 AM EDT 10/26/2024 6:20 AM EDT Sveta Judge MD LAB BLOOD ORDERABLES Final Resu lt Performing Organization Address City/[facility]/ZIP Co de Phone Number [facility] [address] [facility]. [address] * Magnesium (10/26/2024 6:10 AM EDT) Magnesium 1.5 1.5 - 2.5 mg/dL 10/26/2024 7:09 AM EDT [facility] Plasma 10/26/2024 6:10 AM EDT 10/26/2024 6:23 AM EDT Sveta Judge MD LAB BLOOD ORDERABLES Final Resu lt [facility] [address] [facility]. [address] * (ABNORMAL) Hepatic Function Panel (10/26/2024 6:10 AM EDT) Total Bilirubin 6.2(H) 0.0 - 1.5 mg/dL 10/26/2024 7:11 AM EDT [facility] Bilirubin, Direct 5.26(H) 0.00 - 0.40 mg/dL 10/26/2024 7:11 AM EDT [facility] AST 1,071(H) 13 - 39 U/L 10/26/2024 7:11 AM EDT [facility] ALT 805(H) 7 - 52 U/L 10/26/2024 7:11 AM EDT [facility] Alkaline Phosphatase 55 36 - 125 U/L 10/26/2024 7:11 AM EDT [facility] Total Protein <3.0(L) 6.4 - 8.9 g/dL 10/26/2024 7:11 AM EDT [facility] Albumin 1.9(L) 3.5 - 5.7 g/dL 10/26/2024 7:11 AM EDT [facility] Bilirubin, Indirect 0.94 0.00 - 1.10 mg/dL 10/26/2024 7:11 AM EDT [facility] Plasma 10/26/2024 6:10 AM EDT 10/26/2024 6:23 AM EDT us Sveta Judge MD LAB BLOOD ORDERABLES Final Resu lt [facility] [address] [place] [address], [facility] * (ABNORMAL) Renal Function Panel w/EGFR (10/26/2024 6:10 AM EDT) Sodium 141 133 - 146 mmol/L 10/26/2024 7:09 AM EDT [facility] Potassium 2.8(LL) 3.5 - 5.3 mmol/L 10/26/2024 7:09 AM EDT [facility] Comment:Critical value previ ously called. Chloride 106 98 - 110 mmol/L 10/26/2024 7:09 AM EDT [facility] CO2 25 21 - 33 mmol/L 10/26/2024 7:09 AM EDT [facility] Anion Gap 10 3 - 16 mmol/L 10/26/2024 7:09 AM EDT [facility] BUN 57(H) 7 - 25 mg/dL 10/26/2024 7:09 AM EDT [facility] Creatinine 2.70(H) 0.60 - 1.30 mg/dL 10/26/2024 7:09 AM EDT [facility] Glucose 210(H) 70 - 100 mg/dL 10/26/2024 7:09 AM EDT [facility] Calcium 8.7 8.6 - 10.3 mg/dL 10/26/2024 7:09 AM EDT [facility] Phosphorus 5.4(H) 2.1 - 4.7 mg/dL 10/26/2024 7:09 AM EDT [facility] Albumin 1.9(L) 3.5 - 5.7 g/dL 10/26/2024 7:11 AM EDT [facility] Osmolality, Calculated 314(H) 278 - 305 mOsm/kg 10/26/2024 7:09 AM EDT [facility] EGFR 29 10/26/2024 7:09 AM EDT [facility] Comment:As of 2021, the estimated [...] LAB BLOOD ORDERABLES Final Resu lt [facility] [address] [place], [place] [address] * (ABNORMAL) CBC (10/26/2024 6:10 AM EDT) WBC 14.8(H) 3.8 - 10.8 10E3/uL 10/26/2024 6:46 AM EDT [facility] RBC 4.04(L) 4.20 - 5.80 10E6/uL 10/26/2024 6:46 AM EDT [facility] Hemoglobin 12.7(L) 13.2 - 17.1 g/dL 10/26/2024 6:46 AM EDT [facility] Hematocrit 35.9(L) 38.5 - 50.0 % 10/26/2024 6:46 AM EDT [facility] MCV 89.0 80.0 - 100.0 fL 10/26/2024 6:46 AM EDT [facility] MCH 31.3 27.0 - 33.0 pg 10/26/2024 6:46 AM EDT [facility] MCHC 35.2 32.0 - 36.0 g/dL 10/26/2024 6:46 AM EDT [facility] RDW 19.7(H) 11.0 - 15.0 % 10/26/2024 6:46 AM EDT [facility] Platelets 107(L) 140 - 400 10E3/uL 10/26/2024 6:46 AM EDT [facility] MPV 7.4(L) 7.5 - 11.5 fL 10/26/2024 6:46 AM EDT [facility] Whole Blood 10/26/2024 6:10 AM EDT 10/26/2024 6:26 AM EDT Sveta Judge MD LAB BLOOD ORDERABLES Final Resu lt Performing Organization Address City/State/[facility] Co de Phone Number [facility] [address] * (ABNORMAL) POC INR (10/26/2024 5:16 AM EDT) [facility] Prothrombin Time INR, POC 2.4(H) 0.8 - 1.4 10/27/2024 6:51 AM EDT [facility] Comment: Test results may vary [...] Performing Organization Address City/[facility] Co de Phone Number [facility] [address] * POC Sample Type (10/26/2024 5:14 AM EDT) POC Sample Type Arterial 10/26/2024 5:31 AM EDT [facility] Blood, Arterial 10/26/2024 5 :14 AM EDT 10/26/2024 5:31 AM EDT Harvey Domínguez III, MD POINT OF CARE TEST ORDERABLES Final Result Performing Organization Address [facility] Co de Phone Number [facility] [address]. [address] * POC Anion Gap (10/26/2024 5:14 AM EDT) POC Anion Gap, Arterial 12 3 - 16 mmol/L 10/26/2024 5:31 AM EDT [facility] Blood, Arterial 10/26/2024 5 :14 AM EDT 10/26/2024 5:31 AM EDT Harvey Domínguez III, MD POINT OF CARE TEST ORDERABLES Final Result Performing Organization Address City/[facility] Co de Phone Number [facility] [address]. [address] * POC Chloride (10/26/2024 5:14 AM EDT) POC Chloride 104 98 - 110 mmol/L 10/26/2024 5:31 AM EDT [facility] Blood, Arterial 10/26/2024 5 :14 AM EDT 10/26/2024 5:31 AM EDT us Harvey Domínguez III, MD POINT OF CARE TEST ORDERABLES Final Result Performing Organization Address City/[facility] Co de Phone Number [facility] [address] * (ABNORMAL) POC Hemoglobin (10/26/2024 5:14 AM EDT) POC Hemoglobin 9.5(L) 14.0 - 18.0 g/dL 10/26/2024 5:31 AM EDT [facility] Blood, Arterial 10/26/2024 5 :14 AM EDT 10/26/2024 5:31 AM EDT us Harvey Domínguez III, MD POINT OF CARE TEST ORDERABLES Final Result Performing Organization Address [facility] Co de Phone Number [facility] [address] [facility]. [address] * (ABNORMAL) POC hematocrit (10/26/2024 5:14 AM EDT) POC Hematocrit 28.0(L) 40 - 52 % 10/26/2024 5:31 AM EDT [facility] Blood, Arterial 10/26/2024 5 :14 AM EDT 10/26/2024 5:31 AM EDT us Harvey Domínguez III, MD POINT OF CARE TEST ORDERABLES Final Result Performing Organization Address City/State/[facility] Co de Phone Number [facility] [address] [facility]. [address] * POC Lactate (10/26/2024 5:14 AM EDT) POC Lactate 1.76 0.50 - 2.20 mmol/L 10/26/2024 5:31 AM EDT [facility] Blood, Arterial 10/26/2024 5 :14 AM EDT 10/26/2024 5:31 AM EDT Harvey Domínguez III, MD POINT OF CARE TEST ORDERABLES Final Result Performing Organization Address City/[facility]/ZIP Co de Phone Number [facility] [address] * (ABNORMAL) POC Glucose (10/26/2024 5:14 AM EDT) POC Glucose, Arterial 183(H) 70 - 100 mg/dL 10/26/2024 5:31 AM EDT [facility] Blood, Arterial 10/26/2024 5 :14 AM EDT 10/26/2024 5:31 AM EDT Harvey Domínguez III, MD POINT OF CARE TEST ORDERABLES Final Result Performing Organization Address [facility] Co de Phone Number [facility] [address] [facility]. [address] * (ABNORMAL) POC Ionized Calcium (10/26/2024 5:14 AM EDT) POC Ionized Calcium 5.50(H) 4.50 - 5.30 mg/dL 10/26/2024 5:31 AM EDT [facility] Blood, Arterial 10/26/2024 5 :14 AM EDT 10/26/2024 5:31 AM EDT Harvey Domínguez III, MD POINT OF CARE TEST ORDERABLES Final Result Performing Organization Address City/[facility]/ZIP Co de Phone Number [facility] [address] * (ABNORMAL) POC Potassium (10/26/2024 5:14 AM EDT) POC Potassium 2.8(LL) 3.5 - 5.3 mmol/L 10/26/2024 5:31 AM EDT [facility] Blood, Arterial 10/26/2024 5 :14 AM EDT 10/26/2024 5:31 AM EDT us Harvey Domínguez III, MD POINT OF CARE TEST ORDERABLES Final Result Performing Organization Address City/[facility] Co de Phone Number [facility] [address] [facility]. [address] * POC Sodium (10/26/2024 5:14 AM EDT) POC Sodium 138 136 - 146 mmol/L 10/26/2024 5:31 AM EDT [facility] Blood, Arterial 10/26/2024 5 :14 AM EDT 10/26/2024 5:31 AM EDT us Harvey Domínguez III, MD POINT OF CARE TEST ORDERABLES Final Result Performing Organization Address [facility] Co de Phone Number [address] * POC TCO2 (10/26/2024 5:14 AM EDT) POC TCO2, Arterial 23 23 - 27 mmol/L 10/26/2024 5:31 AM EDT [facility] Blood, Arterial 10/26/2024 5 :14 AM EDT 10/26/2024 5:31 AM EDT us Harvey Domínguez III, MD POINT OF CARE TEST ORDERABLES Final Result Performing Organization Address City/[facility] Co de Phone Number [place] [address] [facility]. [address] * (ABNORMAL) POC O2 SAT (10/26/2024 5:14 AM EDT) POC O2 Saturation, Arterial 99(H) 95 - 98 % 10/26/2024 5:31 AM EDT [facility] Blood, Arterial 10/26/2024 5 :14 AM EDT 10/26/2024 5:31 AM EDT us Harvey Domínguez III, MD POINT OF CARE TEST ORDERABLES Final Result [facility] [address] [facility]. [address] * (ABNORMAL) POC Base Excess (10/26/2024 5:14 AM EDT) POC Base Excess, Arterial -5(L) -2 - 3 mmol/L 10/26/2024 5:31 AM EDT [facility] Blood, Arterial 10/26/2024 5 :14 AM EDT 10/26/2024 5:31 AM EDT Harvey Domínguez III, MD POINT OF CARE TEST ORDERABLES Final Result Performing Organization Address City/[facility] Co de Phone Number [facility] [address] [facility]. [address] * POC HCO3 (10/26/2024 5:14 AM EDT) POC HCO3, Arterial 22 22 - 26 mmol/L 10/26/2024 5:31 AM EDT [facility] Blood, Arterial 10/26/2024 5 :14 AM EDT 10/26/2024 5:31 AM EDT Harvey Domínguez III, MD POINT OF CARE TEST ORDERABLES Final Result Performing Organization Address City/[facility]/ZIP Co de Phone Number [facility] [address] [facility]. [address] * (ABNORMAL) POC PO2 (10/26/2024 5:14 AM EDT) POC pO2, Arterial 133(H) 80 - 100 mm Hg 10/26/2024 5:31 AM EDT [facility] Blood, Arterial 10/26/2024 5 :14 AM EDT 10/26/2024 5:31 AM EDT us Harvey Domínguez III, MD POINT OF CARE TEST ORDERABLES Final Result Performing Organization Address [facility] Co de Phone Number [facility] [address] * POC PCO2 (10/26/2024 5:14 AM EDT) POC pCO2, Arterial 45 35 - 45 mm Hg 10/26/2024 5:31 AM EDT [facility] Blood, Arterial 10/26/2024 5 :14 AM EDT 10/26/2024 5:31 AM EDT Result [facility] Harvey Domínguez III, MD POINT OF CARE TEST ORDERABLES Final Result Performing Organization Address [facility] Co de Phone Number [facility] [address] * (ABNORMAL) POC pH (10/26/2024 5:14 AM EDT) Pathologist [facility] POC pH, Arterial 7.29(L) 7.35 - 7.45 10/26/2024 5:31 AM EDT [facility] Blood, Arterial 10/26/2024 5 :14 AM EDT 10/26/2024 5:31 AM EDT Harvey Domínguez III, MD POINT OF CARE TEST ORDERABLES Final Result Performing Organization Address [facility] Co de Phone Number [facility] [address] * Transfuse Cryoprecipitate (10/26/2024 4:37 AM EDT) Eber Quinones MD NURSING TREATMENT ORDERA BLES - BLOOD ADMIN Final Result * Transfuse Cryoprecipitate (10/26/2024 4:37 AM EDT) Eber Quinones MD NURSING TREATMENT ORDERA BLES - BLOOD ADMIN Final Result * (ABNORMAL) POC INR (10/26/2024 4:27 AM EDT) Prothrombin Time INR, POC 2.3(H) 0.8 - 1.4 10/27/2024 6:51 AM EDT [facility] Comment: Test results may vary [...] [facility] [place]/ZIP Co de Phone Number [facility] [address] [facility]. [address] * POC Sample Type (10/26/2024 4:24 AM EDT) POC Sample Type Arterial 10/26/2024 5:09 AM EDT [facility] Blood, Arterial 10/26/2024 4 :24 AM EDT 10/26/2024 5:09 AM EDT Harvey Domínguez III, MD POINT OF CARE TEST ORDERABLES Final Result Performing Organization Address City/[facility] Co de Phone Number [facility] [address] * POC Anion Gap (10/26/2024 4:24 AM EDT) POC Anion Gap, Arterial 14 3 - 16 mmol/L 10/26/2024 5:09 AM EDT [facility] Blood, Arterial 10/26/2024 4 :24 AM EDT 10/26/2024 5:09 AM EDT us Harvey Domínguez III, MD POINT OF CARE TEST ORDERABLES Final Result Performing Organization Address City/[facility]/ZIP Co de Phone Number [facility] [address] * POC Chloride (10/26/2024 4:24 AM EDT) POC Chloride 103 98 - 110 mmol/L 10/26/2024 5:09 AM EDT [facility] Blood, Arterial 10/26/2024 4 :24 AM EDT 10/26/2024 5:09 AM EDT us Harvey Domínguez III, MD POINT OF CARE TEST ORDERABLES Final Result [facility] [address] [facility]. [address] * (ABNORMAL) POC Hemoglobin (10/26/2024 4:24 AM EDT) POC Hemoglobin 10.3(L) 14.0 - 18.0 g/dL 10/26/2024 5:09 AM EDT [facility] Blood, Arterial 10/26/2024 4 :24 AM EDT 10/26/2024 5:09 AM EDT us Harvey Domínguez III, MD POINT OF CARE TEST ORDERABLES Final Result Performing Organization Address [facility] Co de Phone Number [facility] [address] [facility]. [address] * (ABNORMAL) POC hematocrit (10/26/2024 4:24 AM EDT) Pathologist [facility] POC Hematocrit 30.0(L) 40 - 52 % 10/26/2024 5:09 AM EDT [facility] Blood, Arterial 10/26/2024 4 :24 AM EDT 10/26/2024 5:09 AM EDT us Harvey Domínguez III, MD POINT OF CARE TEST ORDERABLES Final Result Performing Organization Address City/[facility]/ZIP Co de Phone Number [facility] [address] [facility]. [address] * (ABNORMAL) POC Lactate (10/26/2024 4:24 AM EDT) Pathologist [facility] POC Lactate 2.43(H) 0.50 - 2.20 mmol/L 10/26/2024 5:09 AM EDT [facility] Blood, Arterial 10/26/2024 4 :24 AM EDT 10/26/2024 5:09 AM EDT us Harvey Domínguez III, MD POINT OF CARE TEST ORDERABLES Final Result [facility] [address] [facility]. [address] * (ABNORMAL) POC Glucose (10/26/2024 4:24 AM EDT) [facility] POC Glucose, Arterial 185(H) 70 - 100 mg/dL 10/26/2024 5:09 AM EDT [facility] Blood, Arterial 10/26/2024 4 :24 AM EDT 10/26/2024 5:09 AM EDT us Harvey Domínguez III, MD POINT OF CARE TEST ORDERABLES Final Result Performing Organization Address [facility] Co de Phone Number [facility] [address] [place] [address]. [address] * POC Ionized Calcium (10/26/2024 4:24 AM EDT) [facility] POC Ionized Calcium 5.20 4.50 - 5.30 mg/dL 10/26/2024 5:09 AM EDT [facility] Blood, Arterial 10/26/2024 4 :24 AM EDT 10/26/2024 5:09 AM EDT us Harvey Domínguez III, MD POINT OF CARE TEST ORDERABLES Final Result Performing Organization Address City/[facility] Co de Phone Number [facility] [address] [facility]. [address] * (ABNORMAL) POC Potassium (10/26/2024 4:24 AM EDT) POC Potassium 2.8(LL) 3.5 - 5.3 mmol/L 10/26/2024 5:09 AM EDT [facility] Blood, Arterial 10/26/2024 4 :24 AM EDT 10/26/2024 5:09 AM EDT us Harvey Domínguez III, MD POINT OF CARE TEST ORDERABLES Final Result [facility] [address] [place] [address]. [address] * POC Sodium (10/26/2024 4:24 AM EDT) Pathologist [facility] POC Sodium 139 136 - 146 mmol/L 10/26/2024 5:09 AM EDT [facility] Blood, Arterial 10/26/2024 4 :24 AM EDT 10/26/2024 5:09 AM EDT us Harvey Domínguez III, MD POINT OF CARE TEST ORDERABLES Final Result Performing Organization Address City/[facility] Co de Phone Number [facility] [address] [place] [address]. [address] * POC TCO2 (10/26/2024 4:24 AM EDT) Pathologist [facility] POC TCO2, Arterial 23 23 - 27 mmol/L 10/26/2024 5:09 AM EDT [facility] Blood, Arterial 10/26/2024 4 :24 AM EDT 10/26/2024 5:09 AM EDT us Harvey Domínguez III, MD POINT OF CARE TEST ORDERABLES Final Result Performing Organization Address City/[facility] Co de Phone Number [facility] [address] [facility]. [address] * POC O2 SAT (10/26/2024 4:24 AM EDT) Pathologist [facility] POC O2 Saturation, Arterial 96 95 - 98 % 10/26/2024 5:09 AM EDT [facility] Blood, Arterial 10/26/2024 4 :24 AM EDT 10/26/2024 5:09 AM EDT us Harvey Domínguez III, MD POINT OF CARE TEST ORDERABLES Final Result Performing Organization Address City/[facility]/ZIP Co de Phone Number [facility] [address] [place] [address]. [address] * (ABNORMAL) POC Base Excess (10/26/2024 4:24 AM EDT) POC Base Excess, Arterial -5(L) -2 - 3 mmol/L 10/26/2024 5:09 AM EDT [facility] Blood, Arterial 10/26/2024 4 :24 AM EDT 10/26/2024 5:09 AM EDT us Harvey Domínguez III, MD POINT OF CARE TEST ORDERABLES Final Result Performing Organization Address [facility] Co de Phone Number [facility] [address] [facility]. [address] * POC HCO3 (10/26/2024 4:24 AM EDT) POC HCO3, Arterial 22 22 - 26 mmol/L 10/26/2024 5:09 AM EDT [facility] Blood, Arterial 10/26/2024 4 :24 AM EDT 10/26/2024 5:09 AM EDT us Harvey Domínguez III, MD POINT OF CARE TEST ORDERABLES Final Result Performing Organization Address City/[facility] Co de Phone Number [facility] [address] [facility]. [address] * POC PO2 (10/26/2024 4:24 AM EDT) POC pO2, Arterial 93 80 - 100 mm Hg 10/26/2024 5:09 AM EDT [facility] Blood, Arterial 10/26/2024 4 :24 AM EDT 10/26/2024 5:09 AM EDT Harvey Domínguez III, MD POINT OF CARE TEST ORDERABLES Final Result Performing Organization Address [facility] Co de Phone Number [facility] [address] * POC PCO2 (10/26/2024 4:24 AM EDT) POC pCO2, Arterial 44 35 - 45 mm Hg 10/26/2024 5:09 AM EDT [facility] Blood, Arterial 10/26/2024 4 :24 AM EDT 10/26/2024 5:09 AM EDT Harvey Domínguez III, MD POINT OF CARE TEST ORDERABLES Final Result Performing Organization Address [facility] Co de Phone Number [facility] [address] * (ABNORMAL) POC pH (10/26/2024 4:24 AM EDT) POC pH, Arterial 7.30(L) 7.35 - 7.45 10/26/2024 5:09 AM EDT [facility] Blood, Arterial 10/26/2024 4 :24 AM EDT 10/26/2024 5:09 AM EDT Harvey Domínguez III, MD POINT OF CARE TEST ORDERABLES Final Result Performing Organization Address City/[facility] Co de Phone Number [facility] [address] [facility]. [address] * Transfuse Platelets (10/26/2024 4:14 AM EDT) Ben Blake MD NURSING TREATMENT ORDERABLES - BLOOD ADMIN Final Result * Transfuse Fresh Frozen Plasma (10/26/2024 3:47 AM EDT) Ben Blake MD NURSING TREATMENT ORDERABLES - BLOOD ADMIN Final Result * (ABNORMAL) POC INR (10/26/2024 3:34 AM EDT) Pathologist [facility] Prothrombin Time INR, POC 2.8(H) 0.8 - 1.4 10/27/2024 6:51 AM EDT [facility] Comment: Test results may vary using different testing platforms. Serial result monitoring should be performed using the same methodology. RECOMMENDED THERAPEUTIC RANGES USING INR : Stable oral anticoagulant therapy: 2.0 - 3.0 Mechanical prosthetic heart valve: 2.5 - 3.5 Recurrent acute myocardial infarction: 2.5 - 3.5 Blood 10/26/2024 3:34 AM EDT 10/27/2024 6:51 AM EDT Result [facility] Harvey Domínguez III, MD POINT OF CARE TEST ORDERABLES Final Result Performing Organization Address City/[facility]/ZIP Co de Phone Number [facility] [address] [facility]. [address] * POC Sample Type (10/26/2024 3:31 AM EDT) [facility] POC Sample Type Arterial 10/26/2024 4:11 AM EDT [facility] Blood, Arterial 10/26/2024 3 :31 AM EDT 10/26/2024 4:11 AM EDT Harvey Domínguez III, MD POINT OF CARE TEST ORDERABLES Final Result Performing Organization Address City/State/[facility] Co de Phone Number [facility] [address] [facility]. [address] * POC Anion Gap (10/26/2024 3:31 AM EDT) Pathologist [facility] POC Anion Gap, Arterial 15 3 - 16 mmol/L 10/26/2024 4:11 AM EDT [facility] Blood, Arterial 10/26/2024 3 :31 AM EDT 10/26/2024 4:11 AM EDT us Harvey Domínguez III, MD POINT OF CARE TEST ORDERABLES Final Result Performing Organization Address City/[facility]/ZIP Co de Phone Number [facility] [address] [place] [address]. [address] * POC Chloride (10/26/2024 3:31 AM EDT) POC Chloride 105 98 - 110 mmol/L 10/26/2024 4:11 AM EDT [facility] Blood, Arterial 10/26/2024 3 :31 AM EDT 10/26/2024 4:11 AM EDT us Harvey Domínguez III, MD POINT OF CARE TEST ORDERABLES Final Result Performing Organization Address [facility] Co de Phone Number [facility] [address] [place] [address]. [address] * (ABNORMAL) POC Hemoglobin (10/26/2024 3:31 AM EDT) POC Hemoglobin 9.7(L) 14.0 - 18.0 g/dL 10/26/2024 4:11 AM EDT [facility] Blood, Arterial 10/26/2024 3 :31 AM EDT 10/26/2024 4:11 AM EDT us Harvey Domínguez III, MD POINT OF CARE TEST ORDERABLES Final Result Performing Organization Address City/[facility] Co de Phone Number [facility] [address] [place] [address]. [address] * (ABNORMAL) POC hematocrit (10/26/2024 3:31 AM EDT) POC Hematocrit 29.0(L) 40 - 52 % 10/26/2024 4:11 AM EDT [facility] Blood, Arterial 10/26/2024 3 :31 AM EDT 10/26/2024 4:11 AM EDT us Harvey Domínguez III, MD POINT OF CARE TEST ORDERABLES Final Result Performing Organization Address City/[facility]/ZIP Co de Phone Number [facility] [address] * (ABNORMAL) POC Lactate (10/26/2024 3:31 AM EDT) POC Lactate 3.54(H) 0.50 - 2.20 mmol/L 10/26/2024 4:11 AM EDT [facility] Blood, Arterial 10/26/2024 3 :31 AM EDT 10/26/2024 4:11 AM EDT us Harvey Domínguez III, MD POINT OF CARE TEST ORDERABLES Final Result Performing Organization Address [facility] Co de Phone Number [facility] [address] [facility]. [address] * (ABNORMAL) POC Glucose (10/26/2024 3:31 AM EDT) POC Glucose, Arterial 153(H) 70 - 100 mg/dL 10/26/2024 4:11 AM EDT [facility] Blood, Arterial 10/26/2024 3 :31 AM EDT 10/26/2024 4:11 AM EDT us Harvey Domínguez III, MD POINT OF CARE TEST ORDERABLES Final Result Performing Organization Address City/[facility] Co de Phone Number [facility] [address] [facility]. [address] * POC Ionized Calcium (10/26/2024 3:31 AM EDT) POC Ionized Calcium 5.10 4.50 - 5.30 mg/dL 10/26/2024 4:11 AM EDT [facility] Blood, Arterial 10/26/2024 3 :31 AM EDT 10/26/2024 4:11 AM EDT us Harvey Domínguez III, MD POINT OF CARE TEST ORDERABLES Final Result Performing Organization Address [facility] Co de Phone Number [facility] [address] * (ABNORMAL) POC Potassium (10/26/2024 3:31 AM EDT) POC Potassium 2.6(LL) 3.5 - 5.3 mmol/L 10/26/2024 4:11 AM EDT [facility] Blood, Arterial 10/26/2024 3 :31 AM EDT 10/26/2024 4:11 AM EDT us Harvey Domínguez III, MD POINT OF CARE TEST ORDERABLES Final Result Performing Organization Address [facility] [place]/[facility] Co de Phone Number [facility] [address] [facility]. [address] * POC Sodium (10/26/2024 3:31 AM EDT) POC Sodium 138 136 - 146 mmol/L 10/26/2024 4:11 AM EDT [facility] Blood, Arterial 10/26/2024 3 :31 AM EDT 10/26/2024 4:11 AM EDT us Harvey Domínguez III, MD POINT OF CARE TEST ORDERABLES Final Result Performing Organization Address [facility] [place]/[facility] Co de Phone Number [facility] [address] [facility]. [address] * (ABNORMAL) POC TCO2 (10/26/2024 3:31 AM EDT) POC TCO2, Arterial 19(L) 23 - 27 mmol/L 10/26/2024 4:11 AM EDT [facility] Blood, Arterial 10/26/2024 3 :31 AM EDT 10/26/2024 4:11 AM EDT us Harvey Domínguez III, MD POINT OF CARE TEST ORDERABLES Final Result [facility] [address] * POC O2 SAT (10/26/2024 3:31 AM EDT) POC O2 Saturation, Arterial 97 95 - 98 % 10/26/2024 4:11 AM EDT [facility] Blood, Arterial 10/26/2024 3 :31 AM EDT 10/26/2024 4:11 AM EDT us Harvey Domínguez III, MD POINT OF CARE TEST ORDERABLES Final Result Performing Organization Address [facility] [place]/[facility] Co de Phone Number [facility] [address] * (ABNORMAL) POC Base Excess (10/26/2024 3:31 AM EDT) POC Base Excess, Arterial -9(L) -2 - 3 mmol/L 10/26/2024 4:11 AM EDT [facility] Blood, Arterial 10/26/2024 3 :31 AM EDT 10/26/2024 4:11 AM EDT us Harvey Domínguez III, MD POINT OF CARE TEST ORDERABLES Final Result Performing Organization Address [facility] [place]/[facility] Co de Phone Number [facility] [address] * (ABNORMAL) POC HCO3 (10/26/2024 3:31 AM EDT) POC HCO3, Arterial 18(L) 22 - 26 mmol/L 10/26/2024 4:11 AM EDT [facility] Blood, Arterial 10/26/2024 3 :31 AM EDT 10/26/2024 4:11 AM EDT us Harvey Domínguez III, MD POINT OF CARE TEST ORDERABLES Final Result [facility] [address] * (ABNORMAL) POC PO2 (10/26/2024 3:31 AM EDT) POC pO2, Arterial 104(H) 80 - 100 mm Hg 10/26/2024 4:11 AM EDT [facility] Blood, Arterial 10/26/2024 3 :31 AM EDT 10/26/2024 4:11 AM EDT Harvey Domínguez III, MD POINT OF CARE TEST ORDERABLES Final Result Performing Organization Address City/[facility] [place]/ZIP Co de Phone Number [facility] [address] * POC PCO2 (10/26/2024 3:31 AM EDT) POC pCO2, Arterial 42 35 - 45 mm Hg 10/26/2024 4:11 AM EDT [facility] Blood, Arterial 10/26/2024 3 :31 AM EDT 10/26/2024 4:11 AM EDT us Harvey Domínguez III, MD POINT OF CARE TEST ORDERABLES Final Result Performing Organization Address City/[facility] [place]/ZIP Co de Phone Number [facility] [address] * (ABNORMAL) POC pH (10/26/2024 3:31 AM EDT) POC pH, Arterial 7.24(L) 7.35 - 7.45 10/26/2024 4:11 AM EDT [facility] Blood, Arterial 10/26/2024 3 :31 AM EDT 10/26/2024 4:11 AM EDT us Harvey Domínguez III, MD POINT OF CARE TEST ORDERABLES Final Result [facility] [address] * (ABNORMAL) TEG-Global With Lysis (Baseline TEG with LY30, Will NOT Show Heparin Effect) (53:31 AM EDT) Pathologist [facility] Citrated Kaolin Reaction Time (TEGLYSIS) 6.8 4.6 - 9.1 minutes 10/26/2024 5:02 AM EDT [facility] Citrated Rapid Teg Maximum Amplitude (TEGLYSIS) <40.0(L) 52.0 - 70.0 mm 10/26/2024 5:02 AM EDT [facility] Citrated Functional Fibrinogen Maximum Amplitude (TEGLYSIS) <4.0(L) 15.0 - 32.0 mm 10/26/2024 5:02 AM EDT [facility] Citrated Kaolin Percent Lysis (TEGLYSIS) 1.4 0.0 - 2.6 % 10/26/2024 5:02 AM EDT [facility] Whole Blood (Citrate) 10/26/2024 3:31 AM EDT 10/26/2024 3:40 AM EDT us Eber Quinones MD LAB BLOOD ORDERABLES Fin al Result [facility] [address] * (ABNORMAL) CBC (10/26/2024 3:31 AM EDT) Pathologist [facility] WBC 9.5 3.8 - 10.8 10E3/uL 10/26/2024 3:48 AM EDT [facility] RBC 3.68(L) 4.20 - 5.80 10E6/uL 10/26/2024 3:48 AM EDT [facility] Hemoglobin 11.5(L) 13.2 - 17.1 g/dL 10/26/2024 3:48 AM EDT [facility] Hematocrit 33.0(L) 38.5 - 50.0 % 10/26/2024 3:48 AM EDT [facility] MCV 89.6 80.0 - 100.0 fL 10/26/2024 3:48 AM EDT [facility] MCH 31.1 27.0 - 33.0 pg 10/26/2024 3:48 AM EDT [facility] MCHC 34.8 32.0 - 36.0 g/dL 10/26/2024 3:48 AM EDT [facility] RDW 19.3(H) 11.0 - 15.0 % 10/26/2024 3:48 AM EDT [facility] Platelets 67(L) 140 - 400 10E3/uL 10/26/2024 3:48 AM EDT [facility] MPV 7.9 7.5 - 11.5 fL 10/26/2024 3:48 AM EDT [facility] Whole Blood 10/26/2024 3:31 AM EDT 10/26/2024 3:40 AM EDT Eber Quinones MD LAB BLOOD ORDERABLES Fin al Result Performing Organization Address City/[facility] [place]/ZIP Co de Phone Number [facility] [address] [facility]. [address] * (ABNORMAL) Protime-INR (10/26/2024 3:31 AM EDT) Protime 27.0(H) 12.1 - 15.1 seconds 10/26/2024 3:51 AM EDT [facility] INR 2.4(H) 0.9 - 1.1 10/26/2024 3:51 AM EDT [facility] Comment: RECOMMENDED THERAPEUTIC RANGES USING INR : Stable oral anticoagulant therapy: 2.0 - 3.0 Mechanical prosthetic heart valve: 2.5 - 3.5 Recurrent acute myocardial infarction: 2.5 - 3.5 Plasma 10/26/2024 3:31 AM EDT 10/26/2024 3:40 AM EDT Eber Quinones MD LAB BLOOD ORDERABLES Fin al Result Performing Organization Address City/[facility] [place]/ZIP Co de Phone Number [facility] [address] * (ABNORMAL) Fibrinogen (10/26/2024 3:31 AM EDT) Fibrinogen 104(L) 218 - 406 mg/dL 10/26/2024 3:56 AM EDT [facility] Plasma 10/26/2024 3:31 AM EDT 10/26/2024 3:40 AM EDT us Eber Quinones MD LAB BLOOD ORDERABLES Fin al Result [facility] [address] [place] [address] * Transfuse Fresh Frozen Plasma (10/26/2024 3:16 AM EDT) Result Tiburcio Blake MD NURSING [...] Transfuse RBC (10/26/2024 1:45 AM EDT) Result [facility] Ben Blake MD NURSING TREATMENT ORDERABLES - BLOOD ADMIN Final Result * Transfuse RBC (10/26/2024 1:45 AM EDT) Result [facility] Ben Blake MD NURSING TREATMENT ORDERABLES - BLOOD ADMIN Final Result * (ABNORMAL) POC INR (10/26/2024 1:43 AM EDT) Pathologist [facility] Prothrombin Time INR, POC 1.9(H) 0.8 - [...] AM EDT 10/27/2024 6:51 AM EDT Result [facility] Harvey Domínguez III, MD POINT OF CARE TEST ORDERABLES Final Result Performing Organization Address City/State/[facility] Co de Phone Number [facility] [address] [place] [address], [facility] * Transfuse Fresh Frozen Plasma (10/26/2024 1:41 AM EDT) Result [facility] Ben Blake MD NURSING TREATMENT ORDERABLES - BLOOD ADMIN Final Result * Transfuse RBC (10/26/2024 1:40 AM EDT) Result [facility] Ben Blake MD NURSING TREATMENT ORDERABLES - BLOOD ADMIN Final Result * POC Sample Type (10/26/2024 1:40 AM EDT) Pathologist [facility] POC Sample Type Arterial 10/26/2024 2:32 AM EDT [facility] Blood, Arterial 10/26/2024 1 :40 AM EDT 10/26/2024 2:32 AM EDT Result [facility] Harvey Domínguez III, MD POINT OF CARE TEST ORDERABLES Final Result [facility] [address] * POC Anion Gap (10/26/2024 1:40 AM EDT) POC Anion Gap, Arterial 13 3 - 16 mmol/L 10/26/2024 2:32 AM EDT [facility] Blood, Arterial 10/26/2024 1 :40 AM EDT 10/26/2024 2:32 AM EDT Harvey Domínguez III, MD POINT OF CARE TEST ORDERABLES Final Result Performing Organization Address [facility] [place]/[facility] Co de Phone Number [facility] [address] [place] [address]. [address] * POC Chloride (10/26/2024 1:40 AM EDT) POC Chloride 104 98 - 110 mmol/L 10/26/2024 2:32 AM EDT [facility] Blood, Arterial 10/26/2024 1 :40 AM EDT 10/26/2024 2:32 AM EDT us Harvey Domínguez III, MD POINT OF CARE TEST ORDERABLES Final Result Performing Organization Address City/[facility] [place]/ZIP Co de Phone Number [facility] [address] * (ABNORMAL) POC Hemoglobin (10/26/2024 1:40 AM EDT) POC Hemoglobin 7.4(L) 14.0 - 18.0 g/dL 10/26/2024 2:32 AM EDT [facility] Blood, Arterial 10/26/2024 1 :40 AM EDT 10/26/2024 2:32 AM EDT us Harvey Domínguez III, MD POINT OF CARE TEST ORDERABLES Final Result Performing Organization Address [facility] [place]/[facility] Co de Phone Number [facility] [address] [place] [address]. [address] * (ABNORMAL) POC hematocrit (10/26/2024 1:40 AM EDT) POC Hematocrit 22.0(L) 40 - 52 % 10/26/2024 2:32 AM EDT [facility] Blood, Arterial 10/26/2024 1 :40 AM EDT 10/26/2024 2:32 AM EDT us Harvey Domínguez III, MD POINT OF CARE TEST ORDERABLES Final Result Performing Organization Address [facility] Co de Phone Number [facility] [address] [place] [address]. [address] * (ABNORMAL) POC Lactate (10/26/2024 1:40 AM EDT) POC Lactate 2.30(H) 0.50 - 2.20 mmol/L 10/26/2024 2:32 AM EDT [facility] Blood, Arterial 10/26/2024 1 :40 AM EDT 10/26/2024 2:32 AM EDT us Harvey Domínguez III, MD POINT OF CARE TEST ORDERABLES Final Result Performing Organization Address [facility] Co de Phone Number [facility] [address] [place] [address]. [address] * (ABNORMAL) POC Glucose (10/26/2024 1:40 AM EDT) POC Glucose, Arterial 116(H) 70 - 100 mg/dL 10/26/2024 2:32 AM EDT [facility] Blood, Arterial 10/26/2024 1 :40 AM EDT 10/26/2024 2:32 AM EDT us Harvey Domínguez III, MD POINT OF CARE TEST ORDERABLES Final Result Performing Organization Address [facility] [place]/[facility] Co de Phone Number [facility] [address] [facility]. [address] * (ABNORMAL) POC Ionized Calcium (10/26/2024 1:40 AM EDT) POC Ionized Calcium 4.10(L) 4.50 - 5.30 mg/dL 10/26/2024 2:32 AM EDT [facility] Blood, Arterial 10/26/2024 1 :40 AM EDT 10/26/2024 2:32 AM EDT us Harvey Domínguez III, MD POINT OF CARE TEST ORDERABLES Final Result Performing Organization Address [facility] [place]/[facility] Co de Phone Number [facility] [address] [facility]. [address] * (ABNORMAL) POC Potassium (10/26/2024 1:40 AM EDT) POC Potassium 2.6(LL) 3.5 - 5.3 mmol/L 10/26/2024 2:32 AM EDT [facility] Blood, Arterial 10/26/2024 1 :40 AM EDT 10/26/2024 2:32 AM EDT us Harvey Domínguez III, MD POINT OF CARE TEST ORDERABLES Final Result Performing Organization Address [facility] [place]/[facility] Co de Phone Number [facility] [address] [facility]. [address] * (ABNORMAL) POC Sodium (10/26/2024 1:40 AM EDT) POC Sodium 135(L) 136 - 146 mmol/L 10/26/2024 2:32 AM EDT [facility] Blood, Arterial 10/26/2024 1 :40 AM EDT 10/26/2024 2:32 AM EDT us Harvey Domínguez III, MD POINT OF CARE TEST ORDERABLES Final Result [facility] [address] * (ABNORMAL) POC TCO2 (10/26/2024 1:40 AM EDT) POC TCO2, Arterial 19(L) 23 - 27 mmol/L 10/26/2024 2:32 AM EDT [facility] Blood, Arterial 10/26/2024 1 :40 AM EDT 10/26/2024 2:32 AM EDT us Harvey Domínguez III, MD POINT OF CARE TEST ORDERABLES Final Result Performing Organization Address [facility] [place]/[facility] Co de Phone Number [facility] [address] * (ABNORMAL) POC O2 SAT (10/26/2024 1:40 AM EDT) POC O2 Saturation, Arterial 99(H) 95 - 98 % 10/26/2024 2:32 AM EDT [facility] Blood, Arterial 10/26/2024 1 :40 AM EDT 10/26/2024 2:32 AM EDT us Harvey Domínguez III, MD POINT OF CARE TEST ORDERABLES Final Result Performing Organization Address [facility] [place]/[facility] Co de Phone Number [facility] [address] [facility]. [address] * (ABNORMAL) POC Base Excess (10/26/2024 1:40 AM EDT) POC Base Excess, Arterial -7(L) -2 - 3 mmol/L 10/26/2024 2:32 AM EDT [facility] Blood, Arterial 10/26/2024 1 :40 AM EDT 10/26/2024 2:32 AM EDT us Harvey Domínguez III, MD POINT OF CARE TEST ORDERABLES Final Result [facility] [address] * (ABNORMAL) POC HCO3 (10/26/2024 1:40 AM EDT) POC HCO3, Arterial 18(L) 22 - 26 mmol/L 10/26/2024 2:32 AM EDT [facility] Blood, Arterial 10/26/2024 1 :40 AM EDT 10/26/2024 2:32 AM EDT us Harvey Domínguez III, MD POINT OF CARE TEST ORDERABLES Final Result Performing Organization Address [facility] [place]/[facility] Co de Phone Number [facility] [address] [facility]. [address] * (ABNORMAL) POC PO2 (10/26/2024 1:40 AM EDT) POC pO2, Arterial 145(H) 80 - 100 mm Hg 10/26/2024 2:32 AM EDT [facility] Blood, Arterial 10/26/2024 1 :40 AM EDT 10/26/2024 2:32 AM EDT us Harvey Domínguez III, MD POINT OF CARE TEST ORDERABLES Final Result Performing Organization Address [facility] [place]/[facility] Co de Phone Number [facility] [address] [facility]. [address] * (ABNORMAL) POC PCO2 (10/26/2024 1:40 AM EDT) POC pCO2, Arterial 33(L) 35 - 45 mm Hg 10/26/2024 2:32 AM EDT [facility] Blood, Arterial 10/26/2024 1 :40 AM EDT 10/26/2024 2:32 AM EDT us Harvey Domínguez III, MD POINT OF CARE TEST ORDERABLES Final Result Performing Organization Address City/[facility]/ZIP Co de Phone Number [facility] [address] * POC pH (10/26/2024 1:40 AM EDT) POC pH, Arterial 7.35 7.35 - 7.45 10/26/2024 2:32 AM EDT [facility] Blood, Arterial 10/26/2024 1 :40 AM EDT 10/26/2024 2:32 AM EDT Harvey Domínguez III, MD POINT OF CARE TEST ORDERABLES Final Result [facility] [address] * Transfuse Fresh Frozen Plasma (10/26/2024 1:20 AM EDT) Ben Blake MD NURSING TREATMENT ORDERABLES - BLOOD ADMIN Final Result * Transfuse RBC (10/26/2024 12:56 AM EDT) Ben Blake MD NURSING TREATMENT ORDERABLES - BLOOD ADMIN Final Result * (ABNORMAL) POC INR (10/26/2024 12:41 AM EDT) Prothrombin Time INR, POC 2.0(H) 0.8 - 1.4 10/27/2024 6:51 AM EDT [facility] Comment: Test results may vary using different testing platforms. Serial result monitoring should be performed using the same methodology. RECOMMENDED THERAPEUTIC RANGES USING INR : Stable oral anticoagulant therapy: 2.0 - 3.0 Mechanical prosthetic heart valve: 2.5 - 3.5 Recurrent acute myocardial infarction: 2.5 - 3.5 Blood 10/26/2024 12:4 1 AM EDT 10/27/2024 6:51 AM EDT Harvey Domínguez III, MD POINT OF CARE TEST ORDERABLES Final Result [facility] [address] * POC Sample Type (10/26/2024 12:39 AM EDT) Pathologist [facility] POC Sample Type Arterial 10/26/2024 1:38 AM EDT [facility] Blood, Arterial 10/26/2024 1 2:39 AM EDT 10/26/2024 1:38 AM EDT us Harvey Domínguez III, MD POINT OF CARE TEST ORDERABLES Final Result [facility] [address] * POC Anion Gap (10/26/2024 12:39 AM EDT) [facility] POC Anion Gap, Arterial 13 3 - 16 mmol/L 10/26/2024 1:38 AM EDT [facility] Blood, Arterial 10/26/2024 1 2:39 AM EDT 10/26/2024 1:38 AM EDT us Harvey Domínguez III, MD POINT OF CARE TEST ORDERABLES Final Result Performing Organization Address City/[facility] [place]/[facility] Co de Phone Number [facility] [address] [facility]. [address] * POC Chloride (10/26/2024 12:39 AM EDT) [facility] POC Chloride 103 98 - 110 mmol/L 10/26/2024 1:38 AM EDT [facility] Blood, Arterial 10/26/2024 1 2:39 AM EDT 10/26/2024 1:38 AM EDT us Harvey Domínguez III, MD POINT OF CARE TEST ORDERABLES Final Result Performing Organization Address City/[facility] [place]/[facility] Co de Phone Number [facility] [address] [facility]. [address] * (ABNORMAL) POC Hemoglobin (10/26/2024 12:39 AM EDT) Pathologist [facility] POC Hemoglobin 7.9(L) 14.0 - 18.0 g/dL 10/26/2024 1:38 AM EDT [facility] Blood, Arterial 10/26/2024 1 2:39 AM EDT 10/26/2024 1:38 AM EDT us Harvey Domínguez III, MD POINT OF CARE TEST ORDERABLES Final Result Performing Organization Address City/[facility]/[facility] Co de Phone Number [facility] [address] [place] [address]. [address] * (ABNORMAL) POC hematocrit (10/26/2024 12:39 AM EDT) [facility] POC Hematocrit 23.0(L) 40 - 52 % 10/26/2024 1:38 AM EDT [facility] Blood, Arterial 10/26/2024 1 2:39 AM EDT 10/26/2024 1:38 AM EDT us Harvey Domínguez III, MD POINT OF CARE TEST ORDERABLES Final Result Performing Organization Address [facility] [place]/[facility] Co de Phone Number [facility] [address] [place] [address]. [address] * POC Lactate (10/26/2024 12:39 AM EDT) [facility] POC Lactate 1.39 0.50 - 2.20 mmol/L 10/26/2024 1:38 AM EDT [facility] Blood, Arterial 10/26/2024 1 2:39 AM EDT 10/26/2024 1:38 AM EDT us Harvey Domínguez III, MD POINT OF CARE TEST ORDERABLES Final Result Performing Organization Address [facility] [place]/[facility] Co de Phone Number [facility] [address] [place] [address]. [address] * (ABNORMAL) POC Glucose (10/26/2024 12:39 AM EDT) [facility] POC Glucose, Arterial 116(H) 70 - 100 mg/dL 10/26/2024 1:38 AM EDT [facility] Blood, Arterial 10/26/2024 1 2:39 AM EDT 10/26/2024 1:38 AM EDT us Harvey Domínguez III, MD POINT OF CARE TEST ORDERABLES Final Result Performing Organization Address City/[facility]/ZIP Co de Phone Number [facility] [address] [place] [address]. [address] * (ABNORMAL) POC Ionized Calcium (10/26/2024 12:39 AM EDT) POC Ionized Calcium 4.30(L) 4.50 - 5.30 mg/dL 10/26/2024 1:38 AM EDT [facility] Blood, Arterial 10/26/2024 1 2:39 AM EDT 10/26/2024 1:38 AM EDT Harvey Domínguez III, MD POINT OF CARE TEST ORDERABLES Final Result Performing Organization Address [facility]/[facility] Co de Phone Number [facility] [address] [facility]. [address] * (ABNORMAL) POC Potassium (10/26/2024 12:39 AM EDT) POC Potassium 2.4(LL) 3.5 - 5.3 mmol/L 10/26/2024 1:38 AM EDT [facility] Blood, Arterial 10/26/2024 1 2:39 AM EDT 10/26/2024 1:38 AM EDT us Harvey Domínguez III, MD POINT OF CARE TEST ORDERABLES Final Result Performing Organization Address City/[facility] Co de Phone Number [facility] [address] [place] [facility]. [address] * POC Sodium (10/26/2024 12:39 AM EDT) POC Sodium 136 136 - 146 mmol/L 10/26/2024 1:38 AM EDT [facility] Blood, Arterial 10/26/2024 1 2:39 AM EDT 10/26/2024 1:38 AM EDT us Harvey Domínguez III, MD POINT OF CARE TEST ORDERABLES Final Result [facility] [address] [facility]. [address] * (ABNORMAL) POC TCO2 (10/26/2024 12:39 AM EDT) POC TCO2, Arterial 21(L) 23 - 27 mmol/L 10/26/2024 1:38 AM EDT [facility] Blood, Arterial 10/26/2024 1 2:39 AM EDT 10/26/2024 1:38 AM EDT us Harvey Domínguez III, MD POINT OF CARE TEST ORDERABLES Final Result Performing Organization Address [facility] Co de Phone Number [facility] [address] [facility]. [address] * POC O2 SAT (10/26/2024 12:39 AM EDT) POC O2 Saturation, Arterial 98 95 - 98 % 10/26/2024 1:38 AM EDT [facility] Blood, Arterial 10/26/2024 1 2:39 AM EDT 10/26/2024 1:38 AM EDT us Harvey Domínguez III, MD POINT OF CARE TEST ORDERABLES Final Result Performing Organization Address City/State/[facility] Co de Phone Number [facility] [address] [facility]. [address] * (ABNORMAL) POC Base Excess (10/26/2024 12:39 AM EDT) POC Base Excess, Arterial -7(L) -2 - 3 mmol/L 10/26/2024 1:38 AM EDT [facility] Blood, Arterial 10/26/2024 1 2:39 AM EDT 10/26/2024 1:38 AM EDT us Harvey Domínguez III, MD POINT OF CARE TEST ORDERABLES Final Result Performing Organization Address City/[facility]/ZIP Co de Phone Number [facility] [address] [facility]. [address] * (ABNORMAL) POC HCO3 (10/26/2024 12:39 AM EDT) POC HCO3, Arterial 20(L) 22 - 26 mmol/L 10/26/2024 1:38 AM EDT [facility] Blood, Arterial 10/26/2024 1 2:39 AM EDT 10/26/2024 1:38 AM EDT us Harvey Domínguez III, MD POINT OF CARE TEST ORDERABLES Final Result Performing Organization Address [facility] Co de Phone Number [facility] [address] [facility]. [address] * (ABNORMAL) POC PO2 (10/26/2024 12:39 AM EDT) POC pO2, Arterial 117(H) 80 - 100 mm Hg 10/26/2024 1:38 AM EDT [facility] Blood, Arterial 10/26/2024 1 2:39 AM EDT 10/26/2024 1:38 AM EDT us Harvey Domínguez III, MD POINT OF CARE TEST ORDERABLES Final Result Performing Organization Address City/State/[facility] Co de Phone Number [facility] [address] [facility]. [address] * (ABNORMAL) POC PCO2 (10/26/2024 12:39 AM EDT) POC pCO2, Arterial 46(H) 35 - 45 mm Hg 10/26/2024 1:38 AM EDT [facility] Blood, Arterial 10/26/2024 1 2:39 AM EDT 10/26/2024 1:38 AM EDT Result Tiburcio Domínguez III, MD POINT OF CARE TEST ORDERABLES Final Result Performing Organization Address [facility] Co de Phone Number [facility] [address] [facility]. [address] * (ABNORMAL) POC pH (10/26/2024 12:39 AM EDT) POC pH, Arterial 7.24(L) 7.35 - 7.45 10/26/2024 1:38 AM EDT [facility] Blood, Arterial 10/26/2024 1 2:39 AM EDT 10/26/2024 1:38 AM EDT Result Tiburcio Domínguez III, MD POINT OF CARE TEST ORDERABLES Final Result Performing Organization Address [facility] Co de Phone Number [facility] [address] [facility]. [address] * Transfuse Platelets (10/26/2024 12:37 AM EDT) Result [facility] us Ben Blake MD NURSING TREATMENT ORDERABLES - BLOOD ADMIN Final Result * Transfuse RBC (10/26/2024 12:31 AM EDT) Result [facility] us Ben Blake MD NURSING TREATMENT ORDERABLES - BLOOD ADMIN Final Result * Transfuse Fresh Frozen Plasma (10/26/2024 12:28 AM EDT) Result Tiburcio Blake MD NURSING TREATMENT ORDERABLES - BLOOD ADMIN Final Result * Transfuse Fresh Frozen Plasma (10/26/2024 12:28 AM EDT) Result Tiburcio Blake MD NURSING TREATMENT ORDERABLES - BLOOD ADMIN Final Result * Routine Culture plus Stain (10/26/2024 12:03 AM EDT) Gram Stain Result Cytospin Results: [facility] Gram Stain Result Polymorphonuclear Leukocytes Seen; [facility] Gram Stain Result No Organisms Seen; [facility] Culture Result No Growth After 3 Days [facility] Surgical Swab ABDOMEN / Unknown 12:03 AM EDT Comment:2.) Ascites Anaerobhic culture Fungus culture Routine culture plus stain Narrative [facility] - 10/28/2024 9:38 PM EDT 2.) Ascites Anaerobhic culture Fungus culture Routine culture plus stain 2.) Ascites Harvey Domínguez III, MD MICROBIOLOGY - GENE RAL ORDERABLES Final Result [facility] [address] [id number], [facility] * Surgical Pathology Exam (10/26/2024 12:00 AM EDT) 10/26/2024 10/27/2024 Narrative [facility] - 10/26/2024 12:00 AM EDT CASE: [id number] PATIENT: BLAIR GILBERT Clinical History: Liver - kidney transplant Pre-Operative Diagnosis: Alcoholic cirrhosis of liver Post-Operative Diagnosis: Alcoholic cirrhosis of liver Specimen(s) Submitted: A. pamunkey liver CPT Code(s): 29640 X 1; 58213 X 5 Additional Information: FINAL DIAGNOSIS: A. 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 - Negative for neoplasm. - Increased hepatocellular iron deposition (3+; Modified Scheuer). Gall bladder: -Intramucosal and submucosal vascular congestion and hemorrhage. - Negative for dysplasia or malignancy. Gross Description: Received in formalin, labeled Blair Gilbert and pamunkey liver , is a 2338-gram, hepatectomy specimen [...] discrete masses or other lesions are identified. Fire Engine Operator sections are submitted in cassettes [id number] as follows: A1: Hilar margins, en face. [...] Pathologist signing this report is located at [facility], [address] [place] [address], [facility] [phone], CLIA ID: [id number] us Harvey Domínguez III, MD PATHOLOGY/CYTOLOGY ORDERABLES [...] (ABNORMAL) POC INR (10/25/2024 11:43 PM EDT) Pathologist [facility] Prothrombin Time INR, POC 1.7(H) 0.8 - 1.4 10/27/2024 6:51 AM EDT [facility] Comment: Test results may vary [...] [facility] [place]/ZIP Co de Phone Number [facility] [address] [place] [address] * POC Sample Type (10/25/2024 11:40 PM EDT) [facility] POC Sample Type Arterial 10/25/2024 11:57 PM EDT [facility] Blood, Arterial 10/25/2024 1 1:40 PM EDT 10/25/2024 11:57 PM EDT Harvey Domínguez III, MD POINT OF CARE TEST ORDERABLES Final Result [facility] [address] * POC Anion Gap (10/25/2024 11:40 PM EDT) Pathologist [facility] POC Anion Gap, Arterial 13 3 - 16 mmol/L 10/25/2024 11:57 PM EDT [facility] Blood, Arterial 10/25/2024 1 1:40 PM EDT 10/25/2024 11:57 PM EDT us Harvey Domínguez III, MD POINT OF CARE TEST ORDERABLES Final Result [facility] [address] [facility]. [address] * POC Chloride (10/25/2024 11:40 PM EDT) POC Chloride 102 98 - 110 mmol/L 10/25/2024 11:57 PM EDT [facility] Blood, Arterial 10/25/2024 1 1:40 PM EDT 10/25/2024 11:57 PM EDT Harvey Domínguez III, MD POINT OF CARE TEST ORDERABLES Final Result Performing Organization Address [facility] Co de Phone Number [facility] [address] [facility]. [address] * (ABNORMAL) POC Hemoglobin (10/25/2024 11:40 PM EDT) POC Hemoglobin 6.6(L) 14.0 - 18.0 g/dL 10/25/2024 11:57 PM EDT [facility] Blood, Arterial 10/25/2024 1 1:40 PM EDT 10/25/2024 11:57 PM EDT Harvey Domínguez III, MD POINT OF CARE TEST ORDERABLES Final Result Performing Organization Address City/[facility] Co de Phone Number [facility] [address] [facility]. [address] * (ABNORMAL) POC hematocrit (10/25/2024 11:40 PM EDT) POC Hematocrit 19.0(L) 40 - 52 % 10/25/2024 11:57 PM EDT [facility] Blood, Arterial 10/25/2024 1 1:40 PM EDT 10/25/2024 11:57 PM EDT us Harvey Domínguez III, MD POINT OF CARE TEST ORDERABLES Final Result [facility] [address] [facility]. [address] * POC Lactate (10/25/2024 11:40 PM EDT) POC Lactate 1.36 0.50 - 2.20 mmol/L 10/25/2024 11:57 PM EDT [facility] Blood, Arterial 10/25/2024 1 1:40 PM EDT 10/25/2024 11:57 PM EDT us Harvey Domínguez III, MD POINT OF CARE TEST ORDERABLES Final Result Performing Organization Address [facility] Co de Phone Number [facility] [address] [facility]. [address] * (ABNORMAL) POC Glucose (10/25/2024 11:40 PM EDT) Pathologist [facility] POC Glucose, Arterial 101(H) 70 - 100 mg/dL 10/25/2024 11:57 PM EDT [facility] Blood, Arterial 10/25/2024 1 1:40 PM EDT 10/25/2024 11:57 PM EDT Harvey Domínguez III, MD POINT OF CARE TEST ORDERABLES Final Result Performing Organization Address City/[facility]/ZIP Co de Phone Number [facility] [address] [facility]. [address] * POC Ionized Calcium (10/25/2024 11:40 PM EDT) POC Ionized Calcium 4.50 4.50 - 5.30 mg/dL 10/25/2024 11:57 PM EDT [facility] Blood, Arterial 10/25/2024 1 1:40 PM EDT 10/25/2024 11:57 PM EDT us Harvey Domínguez III, MD POINT OF CARE TEST ORDERABLES Final Result Performing Organization Address City/[facility]/ZIP Co de Phone Number [facility] [address] [facility]. [address] * (ABNORMAL) POC Potassium (10/25/2024 11:40 PM EDT) POC Potassium 1.9(LL) 3.5 - 5.3 mmol/L 10/25/2024 11:57 PM EDT [facility] Blood, Arterial 10/25/2024 1 1:40 PM EDT 10/25/2024 11:57 PM EDT us Harvey Domínguez III, MD POINT OF CARE TEST ORDERABLES Final Result Performing Organization Address [facility] Co de Phone Number [facility] [address] [facility]. [address] * (ABNORMAL) POC Sodium (10/25/2024 11:40 PM EDT) POC Sodium 135(L) 136 - 146 mmol/L 10/25/2024 11:57 PM EDT [facility] Blood, Arterial 10/25/2024 1 1:40 PM EDT 10/25/2024 11:57 PM EDT us Harvey Domínguez III, MD POINT OF CARE TEST ORDERABLES Final Result Performing Organization Address City/[facility] Co de Phone Number [facility] [address] [facility]. [address] * (ABNORMAL) POC TCO2 (10/25/2024 11:40 PM EDT) POC TCO2, Arterial 21(L) 23 - 27 mmol/L 10/25/2024 11:57 PM EDT [facility] Blood, Arterial 10/25/2024 1 1:40 PM EDT 10/25/2024 11:57 PM EDT us Harvey Domínguez III, MD POINT OF CARE TEST ORDERABLES Final Result Performing Organization Address City/[facility]/ZIP Co de Phone Number [facility] [address] * POC O2 SAT (10/25/2024 11:40 PM EDT) POC O2 Saturation, Arterial 98 95 - 98 % 10/25/2024 11:57 PM EDT [facility] Blood, Arterial 10/25/2024 1 1:40 PM EDT 10/25/2024 11:57 PM EDT us Harvey Domínguez III, MD POINT OF CARE TEST ORDERABLES Final Result Performing Organization Address City/[facility]/ZIP Co de Phone Number [facility] [address] [facility]. [address] * (ABNORMAL) POC Base Excess (10/25/2024 11:40 PM EDT) POC Base Excess, Arterial -6(L) -2 - 3 mmol/L 10/25/2024 11:57 PM EDT [facility] Blood, Arterial 10/25/2024 1 1:40 PM EDT 10/25/2024 11:57 PM EDT us Harvey Domínguez III, MD POINT OF CARE TEST ORDERABLES Final Result Performing Organization Address City/[facility]/ZIP Co de Phone Number [facility] [address] * (ABNORMAL) POC HCO3 (10/25/2024 11:40 PM EDT) POC HCO3, Arterial 20(L) 22 - 26 mmol/L 10/25/2024 11:57 PM EDT [facility] Blood, Arterial 10/25/2024 1 1:40 PM EDT 10/25/2024 11:57 PM EDT us Harvey Domínguez III, MD POINT OF CARE TEST ORDERABLES Final Result Performing Organization Address City/[facility]/ZIP Co de Phone Number [facility] [address] [facility]. [address] * (ABNORMAL) POC PO2 (10/25/2024 11:40 PM EDT) POC pO2, Arterial 107(H) 80 - 100 mm Hg 10/25/2024 11:57 PM EDT [facility] Blood, Arterial 10/25/2024 1 1:40 PM EDT 10/25/2024 11:57 PM EDT us Harvey Domínguez III, MD POINT OF CARE TEST ORDERABLES Final Result Performing Organization Address [facility] Co de Phone Number [facility] [address] [facility]. [address] * POC PCO2 (10/25/2024 11:40 PM EDT) POC pCO2, Arterial 41 35 - 45 mm Hg 10/25/2024 11:57 PM EDT [facility] Blood, Arterial 10/25/2024 1 1:40 PM EDT 10/25/2024 11:57 PM EDT Harvey Domínguez III, MD POINT OF CARE TEST ORDERABLES Final Result Performing Organization Address City/[facility] Co de Phone Number [facility] [address] [facility]. [address] * (ABNORMAL) POC pH (10/25/2024 11:40 PM EDT) POC pH, Arterial 7.29(L) 7.35 - 7.45 10/25/2024 11:57 PM EDT [facility] Blood, Arterial 10/25/2024 1 1:40 PM EDT 10/25/2024 11:57 PM EDT Harvey Domínguez III, MD POINT OF CARE TEST ORDERABLES Final Result [facility] [address] * Urine culture (10/25/2024 11:08 PM EDT) Culture Result <1,000 cfu/mL [facility] Culture Result Skin/Urogeni rony Mckayla. No Further Workup. [facility] Newly Placed Berkowitz Urine URINE SPECIMEN / Unknown 10/25/2024 11:08 PM EDT Comment:urine culture Narrative [facility] - 10/28/2024 9:59 AM EDT urine culture urine culture Harvey Domínguez III, MD MICROBIOLOGY - GENE RAL ORDERABLES Final Result Performing Organization Address City/[facility] Co de Phone Number [facility] [address] [facility]. [address] * X-ray Portable Chest (10/25/2024 10:19 [...] - 2.2 mmol/L 10/25/2024 10:39 PM EDT [facility] Plasma 10/25/2024 10:1 7 PM EDT 10/25/2024 10:17 PM EDT Ben Blake MD LAB BLOOD ORDERABLES Final Re sult [facility] [address] [place] [address], [facility] * (ABNORMAL) Ferritin (10/25/2024 10:17 PM EDT) Ferritin 623.2(H) 23.9 - 336.2 ng/mL 10/25/2024 11:02 PM EDT [facility] Serum 10/25/2024 10:1 7 PM EDT 10/25/2024 10:17 PM EDT us Leandra Og MD LAB BLOOD ORDERABLES F inal Result [facility] [address] [facility]. [address] * Iron Studies (Iron + TIBC) (10/25/2024 10:17 PM EDT) Iron 128 50 - 212 ug/dL 10/25/2024 10:44 PM EDT [facility] % Iron Saturation SEE COMMENT 15.0 - 55.0 % 10/25/2024 10:44 PM EDT [facility] Comment:Unable to calculate result because contributing result outside reportable range.. TIBC SEE COMMENT 261 - 462 ug/dL 10/25/2024 10:44 PM EDT [facility] Comment:Unable to calculate result because contributing result outside reportable range.. Serum 10/25/2024 10:1 7 PM EDT 10/25/2024 10:17 PM EDT us Leandra Og MD LAB BLOOD ORDERABLES F inal Result [facility] [address] * PTH (10/25/2024 10:17 PM EDT) PTH 36.0 12.0 - 88.0 pg/mL 10/25/2024 11:01 PM EDT [facility] Serum 10/25/2024 10:1 7 PM EDT 10/25/2024 10:17 PM EDT us Leandra Og MD LAB BLOOD ORDERABLES F inal Result [facility] [address] [facility]. [address] * HIV 1+2 Antibody/Antigen with Reflex (10/25/2024 10:17 PM EDT) HIV 1+2 AB/AGN Nonreactive Nonreactive 10/25/2024 11:03 PM EDT [facility] Serum 10/25/2024 10:1 7 PM EDT 10/25/2024 10:16 PM EDT [facility] - 10/25/2024 11:03 PM EDT \HIVRNR Leandra Og MD LAB BLOOD ORDERABLES F inal Result Performing Organization Address [facility] Co de Phone Number [facility] [address] [place] [address]. [address] * Hepatitis B Core Antibody (10/25/2024 10:17 PM EDT) Hep B Core Total Ab Nonreactive Nonreactive 10/25/2024 11:07 PM EDT [facility] Comment:Health Department no tified in accordance with reportable infectious disease guidelines. Serum 10/25/2024 10:1 7 PM EDT 10/25/2024 10:17 PM EDT [facility] - 10/25/2024 11:07 PM EDT A nonreactive final interpretation indicates that anti-HBc antibodies were not detected in the sample; it is possible that the individual is not infected with HBV. Leandra Og MD LAB BLOOD ORDERABLES F inal Result Performing Organization Address City/[facility]/ZIP Co de Phone Number [facility] [address] [place] [address]. [address] * Hepatitis C Antibody (10/25/2024 10:17 PM EDT) HCV Ab Nonreactive Nonreactive 10/25/2024 11:16 PM EDT [facility] Comment:Health Department no tified in accordance with reportable infectious disease guidelines. Serum 10/25/2024 10:1 7 PM EDT 10/25/2024 10:17 PM EDT [facility] - 10/25/2024 11:16 PM EDT Antibodies to HCV not detected; does not exclude the possibility of exposure to HCV. us Leandra Og MD LAB BLOOD ORDERABLES F inal Result Performing Organization Address City/[facility]/ZIP Co de Phone Number [facility] [address] [facility]. [address] * (ABNORMAL) Hepatitis B Surface Antibody, Quantitati (10/25/2024 10:17 PM EDT) HBSAB NUMBER 10.70(H) 0.00 - 9.99 mIU/mL 10/25/2024 11:52 PM EDT [facility] Hep B S Ab Equivocal (A) Nonreactive 10/25/2024 11:52 PM EDT [facility] Serum 10/25/2024 10:1 7 PM EDT 10/25/2024 10:17 PM EDT Leandra Og MD LAB BLOOD ORDERABLES F inal Result Performing Organization Address [facility] Co de Phone Number [facility] [address] [facility]. [address] * Hepatitis B surface antigen (10/25/2024 10:17 PM EDT) Pathologist [facility] Hep B Surface Ag Nonreactive Nonreactive 10/25/2024 11:12 PM EDT [facility] Comment:Health Department no tified in accordance with reportable infectious disease guidelines. Serum 10/25/2024 10:1 7 PM EDT 10/25/2024 10:17 PM EDT Narrative [facility] - 10/25/2024 11:12 PM EDT Specimen is considered negative for HBsAg. us Leandra Og MD LAB BLOOD ORDERABLES F inal Result [facility] [address] [facility]. [address] * Hepatitis A Antibody Total (10/25/2024 10:17 PM EDT) Pathologist [facility] Anti-HAV Total (IgG + IgM) Nonreactive 10/25/2024 11:13 PM EDT [facility] Serum 10/25/2024 10:1 7 PM EDT 10/25/2024 10:17 PM EDT Narrative [facility] - 10/25/2024 11:13 PM EDT HAV antibodies not detected Leandra Og MD LAB BLOOD ORDERABLES F inal Result [facility] [address] * (ABNORMAL) Hepatic Function Panel (10/25/2024 10:17 PM EDT) [facility] Total Bilirubin 9.1(H) 0.0 - 1.5 mg/dL 10/25/2024 10:47 PM EDT [facility] Bilirubin, Direct 4.58(H) 0.00 - 0.40 mg/dL 10/25/2024 10:47 PM EDT [facility] AST 51(H) 13 - 39 U/L 10/25/2024 10:47 PM EDT [facility] ALT 23 7 - 52 U/L 10/25/2024 10:47 PM EDT [facility] Alkaline Phosphatase 144(H) 36 - 125 U/L 10/25/2024 10:47 PM EDT [facility] Total Protein 5.5(L) 6.4 - 8.9 g/dL 10/25/2024 10:47 PM EDT [facility] Albumin 3.5 3.5 - 5.7 g/dL 10/25/2024 10:47 PM EDT [facility] Bilirubin, Indirect 4.52(H) 0.00 - 1.10 mg/dL 10/25/2024 10:47 PM EDT [facility] Plasma 10/25/2024 10:1 7 PM EDT 10/25/2024 10:17 PM EDT Leandra Og MD LAB BLOOD ORDERABLES F inal Result [facility] [address] [place] [address], [facility] * (ABNORMAL) Renal Function Panel w/EGFR (10/25/2024 10:17 PM EDT) Sodium 137 133 - 146 mmol/L 10/25/2024 10:47 PM EDT [facility] Potassium 2.1(LL) 3.5 - 5.3 mmol/L 10/25/2024 10:47 PM EDT [facility] Comment:Critical Result K:2. 1 Called to and read back by: ALICIA CARCAMO RN at: 10/25/2024 22:47:45 by:NANCY Chloride 100 98 - 110 mmol/L 10/25/2024 10:47 PM EDT [facility] CO2 20(L) 21 - 33 mmol/L 10/25/2024 10:47 PM EDT [facility] Anion Gap 17(H) 3 - 16 mmol/L 10/25/2024 10:47 PM EDT [facility] BUN 74(H) 7 - 25 mg/dL 10/25/2024 10:47 PM EDT [facility] Creatinine 3.87(H) 0.60 - 1.30 mg/dL 10/25/2024 10:47 PM EDT [facility] Glucose 114(H) 70 - 100 mg/dL 10/25/2024 10:47 PM EDT [facility] Calcium 9.3 8.6 - 10.3 mg/dL 10/25/2024 10:47 PM EDT [facility] Phosphorus 5.9(H) 2.1 - 4.7 mg/dL 10/25/2024 10:47 PM EDT [facility] Albumin 3.5 3.5 - 5.7 g/dL 10/25/2024 10:47 PM EDT [facility] Osmolality, Calculated 307(H) 278 - 305 mOsm/kg 10/25/2024 10:47 PM EDT [facility] EGFR 19 10/25/2024 10:47 PM EDT [facility] Comment:As of 2021, the estimated [...] Organization Address [facility]/ZIP Co de Phone Number [facility] [address] [facility]. [address] * (ABNORMAL) APTT, NO ANTICOAGULANT (10/25/2024 10:17 PM EDT) aPTT 41.7(H) 25.5 - 35.0 seconds 10/25/2024 10:36 PM EDT [facility] Plasma 10/25/2024 10:1 7 PM EDT 10/25/2024 10:17 PM EDT Leandra Og MD LAB BLOOD ORDERABLES F inal Result Performing Organization Address [facility]/ZIP Co de Phone Number [facility] [address] [facility]. [address] * (ABNORMAL) Protime-INR (10/25/2024 10:17 PM EDT) Protime 21.7(H) 12.1 - 15.1 seconds 10/25/2024 10:35 PM EDT [facility] INR 1.8(H) 0.9 - 1.1 10/25/2024 10:35 PM EDT [facility] Comment: RECOMMENDED THERAPEUTIC RANGES USING INR : Stable oral anticoagulant therapy: 2.0 - 3.0 Mechanical prosthetic heart valve: 2.5 - 3.5 Recurrent acute myocardial infarction: 2.5 - 3.5 Plasma 10/25/2024 10:1 7 PM EDT 10/25/2024 10:17 PM EDT us Leandra Og MD LAB BLOOD ORDERABLES F inal Result [facility] [address] [place], [place] [address] * (ABNORMAL) Differential (10/25/2024 10:17 PM EDT) Differential Comments See Note 10/25/2024 10:54 PM EDT [facility] Comment: _Platelets Appear Decreased _Platelet Morphology Normal Scan Result PERFORMED 10/25/2024 10:54 PM EDT [facility] Neutrophils Relative 79.8 40.0 - 80.0 % 10/25/2024 10:54 PM EDT [facility] Lymphocytes Relative 9.6(L) 15.0 - 45.0 % 10/25/2024 10:54 PM EDT [facility] Monocytes Relative 8.9 0.0 - 12.0 % 10/25/2024 10:54 PM EDT [facility] Eosinophils Relative 1.3 0.0 - 8.0 % 10/25/2024 10:54 PM EDT [facility] Basophils Relative 0.4 0.0 - 1.0 % 10/25/2024 10:54 PM EDT [facility] nRBC 0 0 - 0 /100 WBC 10/25/2024 10:54 PM EDT [facility] Neutrophils Absolute 4,948 1,520 - 8,640 /uL 10/25/2024 10:54 PM EDT [facility] Lymphocytes Absolute 595 570 - 4,860 /uL 10/25/2024 10:54 PM EDT [facility] Monocytes Absolute 552 0 - 1,296 /uL 10/25/2024 10:54 PM EDT [facility] Eosinophils Absolute 81 0 - 864 /uL 10/25/2024 10:54 PM EDT [facility] Basophils Absolute 25 0 - 108 /uL 10/25/2024 10:54 PM EDT [facility] PLT Morphology Platelet morphology appears normal 10/25/2024 10:54 PM EDT [facility] Whole Blood 10/25/2024 10:1 7 PM EDT 10/25/2024 10:17 PM EDT us Leandra Og MD LAB BLOOD ORDERABLES F inal Result [facility] [address] [place], [place] [address] * (ABNORMAL) CBC (10/25/2024 10:17 PM EDT) WBC 6.2 3.8 - 10.8 10E3/uL 10/25/2024 10:54 PM EDT [facility] RBC 2.40(L) 4.20 - 5.80 10E6/uL 10/25/2024 10:54 PM EDT [facility] Hemoglobin 8.3(L) 13.2 - 17.1 g/dL 10/25/2024 10:54 PM EDT [facility] Hematocrit 23.7(L) 38.5 - 50.0 % 10/25/2024 10:54 PM EDT [facility] MCV 98.9 80.0 - 100.0 fL 10/25/2024 10:54 PM EDT [facility] MCH 34.6(H) 27.0 - 33.0 pg 10/25/2024 10:54 PM EDT [facility] MCHC 35.0 32.0 - 36.0 g/dL 10/25/2024 10:54 PM EDT [facility] RDW 17.8(H) 11.0 - 15.0 % 10/25/2024 10:54 PM EDT [facility] Platelets 56(L) 140 - 400 10E3/uL 10/25/2024 10:54 PM EDT [facility] Comment: Specimen checked for clots. None detected. Slide Reviewed for PLT Clumps. None Seen. Platelet Estimate Decreased 10/25/2024 10:54 PM EDT [facility] MPV 8.1 7.5 - 11.5 fL 10/25/2024 10:54 PM EDT [facility] Whole Blood 10/25/2024 10:1 7 PM EDT 10/25/2024 10:17 PM EDT Narrative [facility] - 10/25/2024 10:54 PM EDT Peripheral blood smear was scanned per review criteria approved by the laboratory medical associate. us Leandra Og MD LAB BLOOD ORDERABLES F inal Result Performing Organization Address [facility] Co de Phone Number [address] * Donor Specific Antibody (DSA) (10/25/2024 10:00 PM EDT) AntiDonor Antibodies The request and specimen(s) for this test have been received and transported to the [facility] at [address] [place] [address]. The [facility] will report results directly to the client. 10/25/2024 10:20 PM EDT [facility] Comment:Testing performed by [facility], [facility], [address] [place] [address]. The [facility] report has been forwarded to the appropriate ordering location. Please refer to this report for patient results. Serum 10/25/2024 10:0 0 PM EDT 10/25/2024 10:20 PM EDT Leandra Og MD LAB BLOOD ORDERABLES F inal Result Performing Organization Address [facility] Co de Phone Number [facility] [address] [place] [address] * (ABNORMAL) Venous Blood Gas, Line/Syringe (10/25/2024 10:00 PM EDT) PH-Line Draw 7.38 7.32 - 7.42 10/25/2024 10:08 PM EDT [facility] PCO2-Line Draw 33(L) 41 - 51 mm Hg 10/25/2024 10:08 PM EDT [facility] PO2-Line Draw 33 25 - 40 mm Hg 10/25/2024 10:08 PM EDT [facility] HCO3-Line Draw 20(L) 24 - 28 mmol/L 10/25/2024 10:08 PM EDT [facility] CO2 Content-Line Draw 21(L) 25 - 29 mmol/L 10/25/2024 10:08 PM EDT [facility] Base Excess-Line Draw -5.0(L) -2.0 - 3.0 mmol/L 10/25/2024 10:08 PM EDT [facility] %HBO2-Line Draw 53.8 40.0 - 70.0 % 10/25/2024 10:08 PM EDT [facility] Carboxyhgb-Ludivina e Draw 1.9 % 10/25/2024 10:08 PM EDT [facility] Comment: CARBOXYHEMOGLOBIN (CO) REFERENCE RANGES: Non-Smokers: <2 % Smokers: <8 % TOXIC: >20 % Methemoglobin- Line Draw 0.2 0.0 - 1.5 % 10/25/2024 10:08 PM EDT [facility] Reduced Hemoglobin-Ludivina e Draw 44.1(H) 0.0 - 5.0 % 10/25/2024 10:08 PM EDT [facility] Venous, Line Draw 10/25/2024 10:00 PM EDT 10/25/2024 10:04 PM EDT us Leandra Og MD LAB BLOOD ORDERABLES F inal Result Performing Organization Address City/[facility]/ZIP Co de Phone Number [facility] [address] [facility]. [address] * (ABNORMAL) POC Glucose Monitoring Device (10/25/2024 9:56 PM EDT) [facility] POC Glucose Monitoring Device 103(H) 70 - 100 mg/dL 10/25/2024 9:58 PM EDT [facility] Blood 10/25/2024 9:56 PM EDT 10/25/2024 9:57 PM EDT us Harvey Domínguez III, MD POINT OF CARE TEST ORDERABLES Final Result [facility] [address] [facility]. [address] * ECG 12 lead (MUSE) (10/25/2024 9:34 PM EDT) 10/25/2024 9:34 PM EDT Narrative MUSE - 10/27/2024 10:08 AM EDT Ventricular Rate: 97 BPM Atrial Rate: 86 BPM QRS Duration: 106 ms QT: 532 ms QTc: 675 ms P [place]: 38 degrees R [place]: -29 degrees T [place]: 32 degrees Diagnosis Line: Critical Test Result: Long QTc , AV Block ^ SINUS RHYTHM WITH PREMATURE VENTRICULAR COMPLEXES ^ PROLONGED QT ^ NONSPECIFIC ST AND T WAVE CHANGES ^ ABNORMAL ECG ^ ^ Confirmed by MD HA, [facility] ([id number]) on 10/27/2024 10:08:26 AM us Leandra Og MD ECG ORDERABLES Final Result Performing Organization Address City/[facility] Co de Phone Number MUSE * Hepatitis C RNA, Quant Reflex to Genotyp (10/25/2024 8:18 PM EDT) [facility] International Units Not Detected IU/mL 10/27/2024 11:03 AM EDT [facility] Comment:Test methodology for HCV RNA quantification is an FDA-approved nucleic acid amplification assay. The Lower Limit of Quantitation (LLOQ) is 15 IU/mL. The linear range of the assay is 15-100,000,000 IU/mL. The Limit of Detection (LoD) is 12.0 IU/mL for EDTA plasma. The reference range is Not Detected. IU log10 See Note log 10 IU/mL 10/27/2024 11:03 AM EDT [facility] Comment:HCV RNA not detected . Plasma 10/25/2024 8:18 PM EDT 10/25/2024 10:27 PM EDT us Leandra Og MD LAB BLOOD ORDERABLES F inal Result [facility] [address] * Urinalysis w/Rfl to Microscopic (10/25/2024 8:18 PM EDT) Color, UA Yellow Yellow,Straw 10/25/2024 10:38 PM EDT [facility] Clarity, UA Clear Clear 10/25/2024 10:38 PM EDT [facility] Specific [place], UA 1.010 1.005 - 1.035 10/25/2024 10:38 PM EDT [facility] pH, UA 6.0 5.0 - 8.0 10/25/2024 10:38 PM EDT [facility] Protein, UA Negative Negative mg/dL 10/25/2024 10:38 PM EDT [facility] Glucose, UA Negative Negative mg/dL 10/25/2024 10:38 PM EDT [facility] Ketones, UA Negative Negative mg/dL 10/25/2024 10:38 PM EDT [facility] Bilirubin, UA Negative Negative 10/25/2024 10:38 PM EDT [facility] Blood, UA Negative Negative 10/25/2024 10:38 PM EDT [facility] Nitrite, UA Negative Negative 10/25/2024 10:38 PM EDT [facility] Urobilinogen, UA <2.0 0.2 - 1.9 mg/dL 10/25/2024 10:38 PM EDT [facility] Leukocyte Esterase, UA Negative Negative 10/25/2024 10:38 PM EDT [facility] Urine 10/25/2024 8:18 PM EDT 10/25/2024 10:35 PM EDT Narrative [facility] - 10/25/2024 10:38 PM EDT Microscopic testing is not performed when the dipstick is negative for blood, leukocyte, protein and nitrite. us Leandra Og MD URINE ORDERABLES Final Result [facility] [address] [id number], [facility] * Toxoplasma gondii antibody, IgG (10/25/2024 8:18 PM EDT) Pathologist [facility] Toxoplasma Gondii IgG <3.0 0.0 - 7.1 IU/mL 10/27/2024 7:55 AM EDT [facility] Comment: Negative <7.2 Equivocal 7.2 - 8.7 Positive >8.7 Serum 10/25/2024 8:18 PM EDT 10/27/2024 8:06 AM EDT Narrative [facility] - 10/27/2024 8:06 AM EDT PERFORMED AT: [facility] [address] [id number] SENIOR CARE SPECIALIST: Bassam Khalil, PhD PHONE: [phone] Leandra Og MD LAB BLOOD ORDERABLES F inal Result [facility] [address] [facility] [address] * Antibody Screen (10/25/2024 7:46 PM EDT) Antibody Screen Negative 10/25/2024 10:41 PM EDT [facility] Blood 10/25/2024 7:46 PM EDT 10/25/2024 9:54 PM EDT Narrative [facility] - 10/25/2024 10:44 PM EDT Testing performed by [facility] Transfusion Service Ben Blake MD BLOOD BANK TEST ORDERABLES Fi nal Result Performing Organization Address [facility] Co de Phone Number [facility] [address] * ABO/Rh (10/25/2024 7:46 PM EDT) ABO Grouping O 10/25/2024 10:23 PM EDT [facility] Rh Type Positive 10/25/2024 10:23 PM EDT [facility] Blood 10/25/2024 7:46 PM EDT 10/25/2024 9:54 PM EDT Ben Blake MD BLOOD BANK TEST ORDERABLES Fi nal Result [facility] [address] [facility]. [address] * (ABNORMAL) TEG-Standard Global Hemostasis (Rapid TEG with Heparin Effect, Contains a Baseline TEG) (10/25/2024 7:46 PM EDT) [facility] Signature Citrated Kaolin Reaction Time (TEGHEPARINASE) 8.4 4.6 - 9.1 minutes 10/25/2024 10:49 PM EDT [facility] Citrated Rapid Teg Maximum Amplitude (TEGHEPARINASE) <40.0(L) 52.0 - 70.0 mm 10/25/2024 10:49 PM EDT [facility] Citrated Functional Fibrinogen Maximum Amplitude (TEGHEPARINASE) 6.7(L) 15.0 - 32.0 mm 10/25/2024 10:49 PM EDT [facility] Citrated Kaolin W/Heparinase Reaction Time (TEGHEPARINASE) 8.1 4.3 - 8.3 minutes 10/25/2024 10:49 PM EDT [facility] Citrated Kaolin K-Time (TEGHEPARINASE) 2.5(A) 0.8 - 2.1 minutes 10/25/2024 10:49 PM EDT [facility] Citrated Kaolin Angle (TEGHEPARINASE) 65.7(A) 63.0 - 78.0 degrees 10/25/2024 10:49 PM EDT [facility] Citrated Kaolin Maximum Amplitude (TEGHEPARINASE) <40.0(L) 52.0 - 69.0 mm 10/25/2024 10:49 PM EDT [facility] Citrated Functional Fibrinogen- Fibrinogen Level (TEGHEPARINASE) 159.5(L) 278.0 - 581.0 mg/dL 10/25/2024 10:49 PM EDT [facility] Whole Blood (Citrate) 10/25/2024 7:46 PM EDT 10/25/2024 10:15 PM EDT us Ben Blake MD LAB BLOOD ORDERABLES Final Re sult [facility] [address] [place] [address], [facility] documented in this encounter Visit Diagnoses Diagnosis Acute kidney injury superimposed on CKD ([facility]-HCC)- Primary Prophylactic antibiotic Encounter for long-term (current) use of antibiotics Prolonged QT interval Nonspecific abnormal electrocardiogram (ECG) (EKG) Immunosuppression (CMS-HCC) Abdominal pain, unspecified abdominal location Cirrhosis of liver with ascites, unspecified hepatic [...] AM EDT 50 mLs 100 mL/hr New 10/27/2024 1:06 AM EDT 50 mLs 100 [...] Intravenous, Every 3 hours, First dose on Sun10/27/24 at 1730, For 2 doses, [...] in sodium chloride 0.9% 100 mL IVPB (Hiwd7Fid) 1 g, Intravenous, at 200 mL/hr, Every 6 hours scheduled (4 times per day), First dose on Sun10/26/24 at 0630, For 2 days, Dosage may need to be adjusted for renal dysfunction. Full dose is 1g IV q6h Use [id number] Adapter - Mix Thoroughly Before Administration New [...] Once underlying shock sufficiently improved, defined as [id number] r requirement ? 0.2 mcg/kg/min (norepinephrine equivalent) [...] 6:48 PM EDT 1 mg HYDROmorphone (DILAUDID) FEED MIXER HELPER 6 mg/30 mL syringe *Standard Conc* Intravenous, Continuous, Starting on Sun10/27/24 at 1730, HIGH ALERT MEDICATION New Syringe/Cartridge 10/28/2024 3:59 AM EDT New Syringe/Cartridge 10/27/2024 7:09 PM EDT HYDROmorphone (DILAUDID) FEED MIXER HELPER 6 mg/30 mL syringe *Standard Conc* Intravenous, [...] in sodium chloride 0.9 % 100 mL [id number] IVPB 50 mg, Intravenous, at 100 mL/hr, Every 24 hours, First dose on Sun10/27/24 at 1400, PROTECT FROM LIGHT FLUSH LINE w/NSS PRIOR TO ADMINISTRATION Use [id number] Adapter - Mix Thoroughly Before Administration Rate/Dose [...] paralyzed: Do not titrate - follow policy [id number]. Start infusion if unable to maintain goal [...] day, First dose (after last modification) on 11/01/24 at 1900, LEVEL 2 HAZARDOUS MEDICATION Given [...] Paulette Flannery, ЮЛИЯ)2056 (Given - Provider: Yvonne Gale RN) 0620 (Given - Provider: Yvonne Gale RN)1017 (Given - Provider: Paulette Flannery, ЮЛИЯ)2119 (Given - Provider: Yvonne Gale, ЮЛИЯ) 0543 (Given - Provider: Yvonne Gale, ЮЛИЯ)1219 (Given - Provider: Paulette Flannery RN) albumin human 25% (COMPLETED) 50 mL, Intravenous, Every 30 min, First dose on Sun10/31/24 at 2100, For 2 doses, In Emergencies, may administer as rapidly as needed to improve clinical status., Select indication for use: Hepatic Resection/Liver Transplantation, at 100 mL/hr 2053 (New Bag - Provider: Yvonne Gale RN)2142 (New Bag - Provider: Yvonne Gale RN) [...] Flannery RN)1050 (New Bag - Provider: Paulette Flannery RN)1155 (New Bag - Provider: Paulette Flannery RN) [...] RN)1531 (Given - Provider: Meka Montalvo RN) heparin (porcine) injection 5,000 Units 5,000 [...] Gale RN) 0543 (Given - Provider: Yvonne Gale, ЮЛИЯ)1527 [...] Flannery RN)1344 (Given - Provider: Paulette Flannery RN)171 (Given - Provider: Paulette Flannery RN)2118 (Given - Provider: Yvonne Gale RN) 1141 (Given - Provider: Paulette Flannery RN)1530 (Not Given - Provider: Meka Montalvo RN - Reason: Other - Comment: rtoo close to previous dose)1759 (Given - Provider: Paulette Flannery RN) mycophenolate (CELLCEPT) capsule 500 mg 500 mg, Oral, 2 times daily, First dose on Sun10/29/24 at 2100, LEVEL 2 HAZARDOUS MEDICATION 0852 (Given - Provider: Paulette Flannery RN)2054 (Given - Provider: Yvonne Gale RN) 101 (Given - Provider: Paulette Flannery RN)2118 (Given - Provider: Yvonne Gale RN) 1141 (Given - Provider: Paulette Flannery RN) NIFEdipine [...] movements)0900 (Automatically Held - Provider: Sveta Judge MD)222 (Unheld by provider - Provider: Automatic Discharge [...] RN)2056 (Given - Provider: Yvonne Gale, ЮЛИЯ) 1019 (Given - Provider: Paulette Flannery RN)2120 [...] mEq 190 (Given - Provider: Paulette Flannery RN)211 (Given - Provider: Yvonne Gale RN) sodium [...] Newton RN) 0649 (Given - Provider: Yvonne Gale, ЮЛИЯ) tacrolimus (PROGRAF) capsule 5 mg (CANCELED) 5 mg, Oral, Two times a day, First dose (after last modification) on Sun11/01/24 at 1900, LEVEL 2 HAZARDOUS MEDICATION 1901 (Given - Provider: Paulette Flannery, ЮЛИЯ) 0555 (Given - Provider: Yvonne Gale, ЮЛИЯ) tacrolimus (PROGRAF) capsule 6 mg 6 mg, Oral, Two times a day, First dose (after last modification) on Sun11/02/24 at 1900, LEVEL 2 HAZARDOUS MEDICATION 1758 (Given - Provider: Paulette Flannery, ЮЛИЯ) valGANciclovir (VALCYTE) tablet 450 mg 450 mg, Oral, Daily, First dose on Sun10/29/24 at 0900, LEVEL 2 HAZARDOUS MEDICATION 0852 (Given - Provider: Paulette Flannery, ЮЛИЯ) 1020 (Given - Provider: Paulette Flannery, ЮЛИЯ) 1140 (Given - Provider: Paulette Flannery RN) [...] Provider: Paulette Flannery RN)1844 (Given - Provider: iVvi Newton RN)2232 (Given - Provider: Yvonne Gale RN) 0215 (Given - Provider: Yvonne Gale RN)0615 (Given - Provider: Yvonne Gale RN)1153 (Given - Provider: Paulette Flannery RN)1714 (Given - Provider: Paulette Flannery RN)2120 (Given - Provider: Yvonne Gale RN) 0123 (Given - Provider: Yvonne Gale RN)0543 (Given - Provider: Yvonne Gale, ЮЛИЯ)1219 (Given - Provider: Paulette Flannery RN) OMNIPAQUE [...] mg (COMPLETED) 50 mg, Intravenous, Once, On Sun10/30/24 at [...] documented as of this encounter Care Teams Order Runner Relationship Specialty Start Date End Date Enedina Mcguire NP [address] [place] [address] PCP - General Internal Medicine 10/05/24 Alicia Pantoja, RN Txp Post Coordinator Transplant Hepatology 10/28/24 documented as of this encounter
--- OUTSIDE RECORDS SUMMARY | 2024-10-25 22:30 | XMS_ITS | Encounter Summary ---
Author Organization [facility] Address [address] [place] [address] Care Team Providers Care Coal Conveyor Operator Name Role Phone Enedina Mcguire NP Primary Care Provider [phone] Source Comments This information has been disclosed [...] release of HIV test results or diagnoses. [id number] Reason for Visit * Auth/Cert (Routine) Specialty Diagnoses / Procedures Referred By Shane hernadez Referred To Contact Surgical Intensive Care Diagnoses Liver transplant recipient (CMS-HCC) cirrhosis and CKD Procedures LIVER-KIDNEY TRANSPLANT [facility] SICU [address] [place] [address] Phone: tel: Referral ID Status Reason Start Date Expiration Date Visits Re quested Visits Authorized [id number] 1 1 Encounter Details Date Type Department Care Team (Late st Contact Info) Description 10/25/2024 10:30 PM EDT - 10/26/2024 6:12 AM EDT Surgery [facility] PERIOP [address] [place] [address] Semaj Mcnair III, MD [address] [facility] [address] [place] [address] LIVER TRANSPLANT Surgery Details Date/Time [...] the past [address] [employer], gas, oil, or water [employer] threatened to shut off services in your [...] up appointments. Diet: Regular diet Drain/Dressing/Wound Care: Aurora will be removed in clinic approximately 3-4 [...] Instructions: Call post-liver transplant clinic with questions [phone] or call [facility] at [phone] and ask for the liver marketing project coordinator conference specialist if you experience any of the [...] Department Center 11/04/2024 8:40 AM LTRA SURGERY, [facility] LTRA HOX HOX 11/04/2024 10:10 AM LTRA HEPATORENAL HOX LTRA HOX HOX 11/25/2024 9:00 AM NAA Merida [facility] URO MAB MAB 12/02/2024 2:00 PM Bossman Huffman MD [facility] MARIANGEL MAB MAB 02/25/2025 10:50 AM [...] 10/27/2024 blood-glucose meter (TRUE METRIX GLUCOSE METER) St. [...] AM EDT 10/27/2024 lancets (ACCU-CHEK SOFTCLIX LANCETS) [facility] [...] capsule 5 10/27/2024 naloxone (NARCAN) 4 mg/actuation Forest Apply 1 spray in one nostril if [...] Expected caregiver involvement?: is primary med manager hospice Need for additional education in clinic?: routine [...] Disp-30 tablet, R-0 naloxone (NARCAN) 4 mg/actuation Forest Apply 1 spray in one nostril if [...] Solid Organ Transplant Clinical Specialist Contact via [employer] Secure Chat * Froylan Hendrickson MD - 11/01/2024 8:04 AM EDT Liver Transplant Surgery Progress Note Name: Blair Gilbert CSN: [id number] Date: 11/01/2024 8:06 AM OR Date: 10/25/2024 [...] at 10/31/2024 4:38 PM EDT US Duplex Wmv-Asd-Zvxbzzg Comp Result Date: 10/31/2024 IMPRESSION: RIGHT UPPER [...] 10/25/2024 - 10/27/2024. Plan: Liver transplant recipient ([facility]) [Z94.4] Neuro: - Multimodal pain control: [...] PM EDT TXP - Follow Up [facility] Medical Nutrition Therapy Transplant Brief [...] Boost VHC- very high calorie protein supplement ([facility] and [facility] only) Pertinent Information: Pt seen [...] Based on DBW of 93.1 kg Kcals/day: 3051-1438 (25-30 kcals/kg) Protein g/day: 140-190 (1.5-2.0 g/kg) [...] Dietitian - Solid Organ Transplant Contact via [employer] Chat * Keon Dobson - 10/31/2024 2:[address] [facility] Spiritual Care Volunteer Visit PATIENT NAME: Blair Gilbert ROOM:80/U8025 Hinduism Affiliation:Voodoo Blair Gilbert was visited by a volunteer today. No needs requiring a visit from a staff barge pilot were expressed at that time. Care Provided: Communion, Prayer/ blessing Please page our service at [phone] as needs arise for patient and/or family. Fr Dean Dobson Voodoo barge pilot Spiritual Care Dept * Brittany Horne PT [...] transplant recipient (CMS-HCC) [Z94.4] Date: 10/31/2024 Room: 25/80 Reviewed Pertinent hospital course: Yes Hospital Course [...] issued by OT: Long-handled sponge, Sock aid, Selling Specialist, Other (comment) Equipment issued by OT comment: leg fnps Assessment Assessment: Decreased ADL status, Decreased IADLs, [...] IADL task (Goal met and continued 10/31) Alf Goal : Pt will complete bathing assessment [...] Patient Active Problem List Diagnosis Decompensated cirrhosis ([facility]) Acute kidney injury superimposed on CKD ([facility]) Alcohol use disorder Metabolic encephalopathy Hypertension Other hyperlipidemia Thrombocytopenia ([facility]) Renal mass, left Abdominal pain Hypokalemia CKD [...] 0659 10/31/24 0700 - 11/01/24 0659 Shift 1057-3011 6564-2875 6416-4426 24 Hour Total 8299-9846 2597-6574 9395-7297 24 Hour Total INTAKE P.O. 240 240 P.O. 240 240 Shift Total(mL/kg) 240(1.9) 240(1.9) OUTPUT Urine(mL/kg/hr) 1850(1.8) 600(0.6) 600(0.6) 3050(1) 350 350 Urine 800 770 992 2802 350 350 Urine Occurrence 2 x 2 [...] with further concerns Lavell Kramer MD 10/31/[phone] * Priti Geiger CNP - 10/31/2024 10:06 AM EDT Liver Transplant Surgery Progress Note Name: Blair Gilbert CSN: [id number] Date: 10/31/2024 10:06 AM OR Date: 10/25/2024 [...] 10/28/24 1109 LACTATE 0.3* Imaging US Duplex Xbk-Yls-Uqihvqw Comp Result Date: 10/28/2024 IMPRESSION: ABDOMINAL ULTRASOUND [...] 10/25/2024 - 10/27/2024. Plan: Liver transplant recipient ([facility]) [Z94.4] Neuro: - Multimodal pain control: [...] Sanchez MD PhD Transplant Surgery * Caron EZEKIEL Santos - 10/31/2024 9:30 AM EDT Images from the original note were not included. Transplant Nephrology Progress Note Patient: Blair Gilbert [id number] 8025/U8025 Date of Admit: 10/25/2024. 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 Lauren Santos, SAMSON, PROPOSAL SPECIALIST, ACID CONDITIONER- Transplant Nephrology [phone] Preferred contact: secure chat The HPI, ROS, [...] last 3 shifts: Date 10/29/24699 - 10/30/24 0610/30/24 07 - 10/31/24 0659 Shift 3310-4348 2221-2952 9536-0373 24 Hour Total 5643-8706 4145-9618 2850-1394 24 Hour Total INTAKE P.O. 240 240 480 P.O. 240 240 480 IV Piggyback 87.2 87.2 Volume (mL) (micafungin (MYCAMINE) 50 mg in sodium chloride 0.9 % 100 mL Noqz3Jrm IVPB) 87.2 87.2 Shift Total(mL/kg) 240(2) 327.2(2.7) 567.2(4.4) OUTPUT Urine(mL/kg/hr) 600(0.6) 1175(1.2) 450(0.4) 2225(0.7) 550 550 Output (mL) (IUC (Berkowitz) Triple-lumen (3-Way) 18 Fr.) 600 4041 429 8730 550 550 Drains 175 245 100 520 [...] month of prophylaxis Lavell Kramer MD 10/30/[phone] * Priti Geiger CNP - 10/30/2024 10:36 AM EDT Liver Transplant Surgery Progress Note Name: Blair Gilbert CSN: [id number] Date: 10/30/2024 10:37 AM OR Date: 10/25/2024 [...] 1109 LACTATE 0.5 0.3* Imaging US Duplex Ndz-Hpc-Wgfdoui Comp Result Date: 10/28/2024 IMPRESSION: ABDOMINAL ULTRASOUND [...] 10/25/2024 - 10/27/2024. Plan: Liver transplant recipient ([facility]) [Z94.4] Neuro: - Multimodal pain control: [...] Transplant Nephrology Progress Note Patient: Blair Gilbert [id number] 8025/U8025 Date of Admit: 10/25/2024. 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 Lauren Santos, DNP, PROPOSAL SPECIALIST, ACID CONDITIONER- Transplant Nephrology [phone] Preferred contact: secure chat The HPI, ROS, [...] EDT Pt seen, examined, and discussed with POST MANAGER on 10/30/2024. reviewed the chart including [...] PM EDT TXP - Follow Up [facility] Medical Nutrition Therapy Follow-Up Diet [...] I/O: +23.3L net volume. 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 Admit Weight: 270 lb (122.5 kg) Current [...] Based on DBW of 93.1 kg Kcals/day: 7046-6767 (25-30 kcals/kg) Protein g/day: 140-190 (1.5-2.0 g/kg) [...] Dietitian - Solid Organ Transplant Contact via [employer] Chat * Anita Crystal, PT - 10/29/2024 2:04 PM EDT Physical Therapy Initial Assessment Name: Blair Gilbert : 1985 Attending Physician: Semaj Mcnair III, MD Admission Diagnosis: Liver transplant recipient (CMS-HCC) [Z94.4] Date: 10/29/2024 Room: [place] [address] [address] Reviewed Pertinent hospital course: Yes Hospital Course [...] with functional mobility at: 4/[address] Interpreter Goal : Pt will ambulate 250' mod [...] Patient Active Problem List Diagnosis Decompensated cirrhosis ([facility]) Acute kidney injury superimposed on CKD ([facility]) Alcohol use disorder Metabolic encephalopathy Hypertension Other hyperlipidemia Thrombocytopenia ([facility]) Renal mass, left Abdominal pain Hypokalemia CKD (chronic kidney disease) stage 4, GFR 15-29 ml/min ([facility]) Metabolic acidosis with normal anion gap and bicarbonate losses GERD (gastroesophageal reflux disease) Hypothyroidism Itching Anemia BRBPR (bright red blood per rectum) SBP (spontaneous bacterial peritonitis) ([facility]) C Diff Diarrhea C. difficile diarrhea Neck pain with history of cervical spinal surgery * Shanel Pabon OT - 10/29/2024 1:23 PM EDT Occupational Therapy Initial Assessment Name: Blair Gilbert : 1985 Attending Physician: Semaj Mcnari III, MD Admission Diagnosis: Liver transplant recipient ([facility]) [Z94.4] Date: 10/29/2024 Room: [place] [address] [address] Reviewed Pertinent hospital course: Yes Hospital Course [...] Intervention(s): Ambulation/increased activity;Repositioned Therapist reported pain to: skirt maker Oxygen Supplemental Oxygen Supplemental Oxygen: None (Room [...] distance ambulation in prep for IADL task Alf Goal : Pt will complete bathing assessment and transfer terminal system operator goal to be met in: 2 weeks [...] History: Diagnosis Date Alcoholic cirrhosis of liver ([facility]) Esophageal varices ([facility]) Hepatorenal syndrome ([facility]) Hypertension Other hyperlipidemia 07/26/2024 Renal cell carcinoma ([facility]) Thrombocytopenia ([facility]) Thyroid disease Past Surgical History Past [...] Patient Active Problem List Diagnosis Decompensated cirrhosis ([facility]) Acute kidney injury superimposed on CKD ([facility]) Alcohol use disorder Metabolic encephalopathy Hypertension Other hyperlipidemia Thrombocytopenia ([facility]) Renal mass, left Abdominal [...] Transplant Nephrology Progress Note Patient: Blair Gilbert [id number] SICU-28/USIC-28 Date of Admit: 10/25/2024. 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 Lauren Santos, SAMSON, PROPOSAL SPECIALIST, ACID CONDITIONER- Transplant Nephrology [phone] Preferred contact: secure chat The HPI, ROS, [...] Surgery Progress Note Name: Blair Gilbert CSN: [id number] Date: 10/29/2024 10:08 AM OR Date: 10/25/2024 [...] LACTATE 0.4* 0.5 0.3* Imaging US Duplex Jfx-Cgh-Cezdsyh Comp Result Date: 10/28/2024 IMPRESSION: ABDOMINAL ULTRASOUND [...] at 10/27/2024 10:38 AM EDT US Duplex Csc-Wau-Rmhceha Comp Result Date: 10/27/2024 IMPRESSION: RIGHT UPPER [...] 10/25/2024 - 10/27/2024. Plan: Liver transplant recipient ([facility]) [Z94.4] Neuro: - Multimodal pain control: [...] DISPO: floor KENYETTA HARTMAN, MS4 [facility] General Surgery 10:08 AM 10/29/2024 Cosigned [...] DISEASE PROGRESS NOTE 10/29/2024 8:57 AM Blair Gilbetr is a 39 y.o. male patient. Hospital [...] Date 10/28/24699 - 10/29/2465810/29/24699 - 10/30/2459 Shift 7986-9209 9142-2625 2227-0436 24 Hour Total 6438-5309 5413-3348 2247-6610 24 Hour Total INTAKE P.O. 240 0 [...] IV infusion) 253.9 374.7 775.6 1404.2 Blood 6239 077 1165 Albumin 750 750 Volume (Transfuse RBC Transfusion Rate: Per dept routine) 310 310 Volume (Transfuse RBC Transfusion Rate: Per dept routine) 271 271 IV Piggyback 918.4 333 19 5600.4 Volume (mL) (micafungin (MYCAMINE) 50 mg in sodium chloride 0.9 % 100 mL Bpdj2Dxa IVPB) 99.9 99.9 Volume (mL) (albumin human [...] month of prophylaxis Lavell Kramer MD 10/29/[phone] * John Moreno MD - 10/29/2024 6:47 AM EDT SURGICAL ICU PROGRESS NOTE 10/29/2024 6:47 AM Name: Blair Gilbert CSN: [id number] HPI: Blair Gilbert is a 39 y.o. [...] to 4 times a day. DEXCOM G7 PHYSICAL THERAPY COORDINATOR Misc Use reader as directed. DEXCOM [...] times a day. naloxone (NARCAN) 4 mg/actuation Forest Apply 1 spray in one nostril if [...] DAILY 0600 sulfamethoxazole-trimethoprim 1 tablet Oral Daily 09 tacrolimus 5 mg Oral BID valGANciclovir 450 [...] 37 37 35 PO2ART 245* 182* 92 PZZ6JJZ 22 21* 21* BEART -4.2* -4.8* -4.6* [...] at baseline or with provocation, shows no mcooy-fw-mtqw atrial level shunt. - Pulmonary arteries: Systolic [...] Home pantoprazole 40mg daily, continue Last BM: CURB HOP - suppository today Bowel regimen: Miralax today, [...] results for input(s): TEGANGLE , TEGKTIME , ALRAVVBK22 , TEGMAXAMPL , TEGRTIME , CBMZ in [...] in sodium chloride 0.9 % 100 mL Tkhl5Ege IVPB 50 mg Every 24 hours 10/27/2024 -- Admin Instructions: PROTECT FROM LIGHT FLUSH LINE w/NSS PRIOR TO ADMINISTRATION Use Ccns8Xpr Adapter - Mix Thoroughly Before Administration Route: [...] BID Continuous Infusions: HYDROmorphone 6 mg/30 mL COREMAKER SUPERVISOR norepinephrine 4 mcg/min (10/27/24 2318) sodium chloride [...] 0659 10/28/24 07 - 10/29/24 0659 Shift 5031-3208 5531-7788 7174-6802 24 Hour Total 8552-8194 3386-0300 8121-4169 24 Hour Total INTAKE P.O. 0 120 [...] in sodium chloride 0.9 % 100 mL Eiqz0Xbc IVPB) 100 100 Volume (mL) (albumin human 5%) 126 126 Volume (mL) (potassium chloride (KCl)/Sterile water 50 mL 20 mEq/50 mL IVPB 20 mEq) 100 100 Volume (mL) (AMPicillin 1 g in sodium chloride 0.9% 100 mL IVPB (Uxjk8Qie)) 100.1 57 42.9 200 Volume (mL) (mycophenolate (CELLCEPT) 500 mg in dextrose 5% in water (D5W) 50 mL IVPB) 50 5.3 55.3 Shift Total(mL/kg) 2079.3(17) 1161(9.5) 787.3(6.4) 4027.6(32.9) OUTPUT Urine(mL/kg/hr) 2195(2.2) 1000(1) 900(0.9) 4095(1.4) 490 490 Urine 360 360 Output (mL) (IUC (Berkowitz) Triple-lumen (3-Way) 18 Fr.) 1835 6956 731 4855 490 490 Emesis/NG output 50 50 Drainage [...] month of prophylaxis Lavell Kramer MD 10/28/[phone] * Caron Santos CNP - 10/28/2024 9:00 AM EDT Images from the original note were not included. Transplant Nephrology Progress Note Patient: Blair Gilbert [id number] SICU-28/USIC-28 Date of Admit: 10/25/2024. 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 KT 10/27/24: WNL UOP: 4.2 L B Renal [...] 10/27/2024 PCO2 35 10/27/2024 PO2ART 92 10/27/2024 WDY6AGJ 21 (L) 10/27/2024 BEART -4.6 (L) 10/27/2024 LMM5XQQ 95.4 10/27/2024 R4DGPMAI 98 10/27/2024 Hemodynamics / Cardiovascular Status: Goal [...] % Iron Saturation: SEE COMMENT on 10/25/2024 RgmabayQ73: No results found for requested labs within [...] preliminary until attending attestation. Lauren Santos, SAMSON, PROPOSAL SPECIALIST, ACID CONDITIONER- Transplant Nephrology [phone] Preferred contact: secure chat The HPI, ROS, [...] EDT Pt seen, examined, and discussed with POST MANAGER on 10/28/2024. reviewed the chart including the labs and imaging studies. My additional comments below. 39 y.o. 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 S/p SLK 10/25-10/26 Has great UOP 4.2L Aaron Gonzalez MD, MEd, FASN * Shay Plata MD - 10/28/2024 7:41 AM EDT Liver Transplant Surgery Progress Note Name: Blair Gilbert CSN: [id number] Date: 10/28/2024 11:05 AM OR Date: 10/25/2024 - 10/27/2024 Subjective: 1 Day Post-Op Received one unit pRBCs overnight On low dose levo this morning Increasing tachycardia Reports worsening pain, on COREMAKER SUPERVISOR Tolerated sips of clears No nausea/vomiting, [...] Oral BID Continuous: HYDROmorphone 6 mg/30 mL COREMAKER SUPERVISOR norepinephrine Stopped (10/28/24 0637) sodium chloride [...] at 10/27/2024 10:38 AM EDT US Duplex Ukx-Lwr-Tresqqx Comp Result Date: 10/27/2024 IMPRESSION: RIGHT UPPER [...] 10/25/2024 - 10/27/2024. Plan: Liver transplant recipient ([facility]) [Z94.4] Neuro: - Multimodal pain control: dilaudid COREMAKER SUPERVISOR, tylenol, robaxin. PRN dilaudid for breakthrough [...] DISPO: SICU SHAY PLATA MD, MS4 [facility] Surgery 11:05 AM 10/28/2024 Cosigned by Lydia [...] 10/28/2024 6:17 AM Name: Blair Gilbert CSN: [id number] HPI: Blair Gilbert is a 39 y.o. [...] day. blood-glucose meter (TRUE METRIX GLUCOSE METER) [facility] Use to test blood sugar up to 4 times a day. DEXCOM G7 PHYSICAL THERAPY COORDINATOR Misc Use reader as directed. DEXCOM [...] times a day. naloxone (NARCAN) 4 mg/actuation Forest Apply 1 spray in one nostril if [...] Oral BID Continuous: HYDROmorphone 6 mg/30 mL COREMAKER SUPERVISOR insulin regular in 0.9 % sodium [...] 37 37 35 PO2ART 245* 182* 92 UOH1BJG 22 21* 21* BEART -4.2* -4.8* -4.6* [...] at baseline or with provocation, shows no htwys-fq-vraq atrial level shunt. - Pulmonary arteries: Systolic [...] while intubated,convert to PO today Last BM: CURB HOP Bowel regimen: Miralax today, hold senna til [...] ml IV Fluids: HYDROmorphone 6 mg/30 mL COREMAKER SUPERVISOR insulin regular in 0.9 % sodium [...] - Needs K today RENAL/ Recent Labs 10/27/24171210/28/24 0005 10/28/24412 BUN 61* 59* 58* CREATININE 2.42* 2.42* 2.24* A/P: # Hepatorenal Syndrome # S/p DDKT Baseline Cr 3.5 - Admission Cr 3.87, current 2.24 with downtrending BUN - Sodium bicarb 1300mg TID, hold - Labs per transplant protocol - US 10/27 with appropriate flows, no concerns - 3 day berkowitz - ny 10/30 - Makes urine at baseline - [...] results for input(s): TEGANGLE , TEGKTIME , RTMOVNMI50 , TEGMAXAMPL , TEGRTIME , CBMZ in [...] in sodium chloride 0.9% 100 mL IVPB (Ymyz6Tsh) (Completed) 1 g Every 6 hours scheduled 10/26/2024 10/28/2024 Admin Instructions: Dosage may need to be adjusted for renal dysfunction. Full dose is 1g IV q6h Use Plff9Rsm Adapter - Mix Thoroughly Before Administration Notes to Pharmacy: On medical orderly estimated creatinine clearance is 35.9 mL/min [...] in sodium chloride 0.9 % 100 mL Rrbm2Dmw IVPB 50 mg Every 24 hours 10/27/2024 -- Admin Instructions: PROTECT FROM LIGHT FLUSH LINE w/NSS PRIOR TO ADMINISTRATION Use Kspd6Cdn Adapter - Mix Thoroughly Before Administration Route: [...] the Caprini Risk Score of 10 and [facility] transplant protocol, I recommend discharging on heparin [...] the patient as needed. Hillary Fernandes PharmD, [facility] Solid Organ Transplant Clinical Specialist Contact via [employer] Secure Chat Preferred O. [phone] * Chinedu Almeida RRT - 10/27/2024 1:10 [...] Yes MD Order No SBT No Yes [place] Coma Scale > 8 Yes Lab Results Component Value Date PHART 7.36 10/27/2024 PCO2 37 10/27/2024 PO2ART 245 (H) 10/27/2024 NQZ4TTO 22 10/27/2024 BEART -4.2 (L) 10/27/2024 DMG1XIW 96.5 10/27/2024 B4CJHWCC 100 10/27/2024 Based on this SBT assessment [...] Surgery Progress Note Name: Blair Gilbert CSN: [id number] Date: 10/27/2024 11:40 AM OR Date: 10/25/2024 - 10/27/2024 Subjective: * Day of Surgery * Remains intubated in SICU Sedated but appropriately nods to questions No acute distress Objective: BP 100/48 Pulse 89 Temp 99 ??F (37.2 ??C) (Gilbert) Resp 9 Ht 6' 4 (1.93 m) [...] (10/27/24 1057) sodium chloride 0.9 % Stopped (10/27/24251) sodium chloride 0.9 % Stopped (10/27/24251) sodium chloride 0.9 % Stopped (10/27/24251) sodium chloride 0.9 % Stopped (10/27/24 09) vasopressin 0.03 Units/min (10/27/24 1000) PRN Meds: [...] at 10/27/2024 10:38 AM EDT US Duplex Enz-Dnp-Ciuavlk Comp Result Date: 10/27/2024 IMPRESSION: RIGHT UPPER [...] 10/27/2024. Problem List[1] Plan: Liver transplant recipient ([facility]) [Z94.4] Neuro: - Propofol/fentanyl CV: - [...] SCDs DISPO: SICU KENYETTA HARTMAN, MS4 [facility] Surgery 11:40 AM 10/27/2024 [1] Patient Active Problem List Diagnosis Decompensated cirrhosis ([facility]) Acute kidney injury superimposed on CKD ([facility]) Alcohol use disorder Metabolic encephalopathy Hypertension Other hyperlipidemia Thrombocytopenia ([facility]) Renal mass, left Abdominal pain Hypokalemia CKD (chronic kidney disease) stage 4, GFR 15-29 ml/min ([facility]) Metabolic acidosis with normal anion gap and bicarbonate losses GERD (gastroesophageal reflux disease) Hypothyroidism Itching Anemia BRBPR (bright red blood per rectum) SBP (spontaneous bacterial peritonitis) ([facility]) C Diff Diarrhea C. [...] 10/27/2024 7:16 AM Name: Blair Gilbert CSN: [id number] HPI: Blair Gilbert is a 39 y.o. [...] times a day. naloxone (NARCAN) 4 mg/actuation Forest Apply 1 spray in one nostril if [...] (!) 7.32 (10/27/24 0013) PCO2: 37 (10/27/24 0013) PO2: (!) 137 (10/27/24 0013) HCO3: (!) 20 (10/27/24 0013) Base Excess: (!) -6.4 (10/27/24 0013) SaO2: 100 (10/27/24 0013) Recent Labs 10/26/24 0610 10/26/24 1048 10/27/24 0013 PHART 7.27* 7.37 7.32* PCO2 47* 36 37 PO2ART 127* 91 137* DDG4HEW 21* 22 20* BEART -5.4* -3.9* -6.4* [...] at baseline or with provocation, shows no acrev-fp-wtqp atrial level shunt. - Pulmonary arteries: Systolic [...] IV pantoprazole while intubated, NPO Last BM: CURB HOP Bowel regimen: Senna/Miralax when able Nausea: Zofran [...] 10/27/2024 0715 Gross per 24 hour Intake 64634.82 ml Output 7060 ml Net 6224.82 ml [...] results for input(s): TEGANGLE , TEGKTIME , YYDEJHVM44 , TEGMAXAMPL , TEGRTIME , CBMZ in [...] in sodium chloride 0.9% 100 mL IVPB (Zjih8Iej) 1 g Every 6 hours scheduled Admin Instructions: Dosage may need to be adjusted for renal dysfunction. Full dose is 1g IV q6h Use Jqni3Sga Adapter - Mix Thoroughly Before Administration Notes to Pharmacy: On medical orderly estimated creatinine clearance is 35.9 mL/min (A) (based on SCr of 3.87 mg/dL (H)). Route: Intravenous Linked Group 1: Placed in And Linked Group cefTRIAXone (ROCEPHIN) 2 g in sodium chloride 0.9 % 100 mL Owsw1Ugf Continuous - One Step Medications Only 10/27/2024 [...] Agitation Sedation Scale: -2 Overall CAM-ICU : ([place] [facility] A/P: - ADDY # Mood Disorder [...] R IJ Mac Arterial Line? R radial [place] Urinary Catheter? Berkowitz - Reason: Adequate I/O [...] Solid Organ Transplant Clinical Specialist Contact via [email or web address] Chat Preferred * Simeon Guzman RN - [...] 10/26/2024 0725 Gross per 24 hour Intake 96814.32 ml Output 2075 ml Net 82903.32 ml Consitutional: Intubated/sedated HEENT: Mucous membranes moist [...] History and Physical Patient: Blair Gilbert CSN: [id number] History CC: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 naloxone (NARCAN) 4 mg/actuation Forest Apply 1 spray in one nostril if [...] Low Risk (07/09/2024) Received from [facility] Overall Financial Resource Strain (CARDIA) Difficulty [...] No Physical Activity: Unknown (07/14/2024) Received from [facility] Exercise Vital Sign Days of Exercise per Week: Patient unable to answer Minutes of Exercise per Session: Not on file Stress: Patient Unable To Answer (07/14/2024) Received from [facility] [employer] of Occupational Health - Occupational Stress Questionnaire Feeling of Stress : Patient unable to answer Social Connections: Patient Unable To Answer (07/14/2024) Received from [facility] Social Connection and Isolation Panel [NHANES] Frequency of Communication with Friends and Family: Patient unable to answer Frequency of Social Gatherings with Friends and Family: Patient unable to answer Attends Hinduism Services: Patient unable to answer Active Member [...] -- 5.4 ALBUMIN 3.2* 3.1* Invalid input(s): [facility] Other labs: Imaging Studies No results [...] to SICU post-op. LEANDRA OG MD [facility] Surgery Liver Transplant Pager: [phone] 8:24 PM 10/25/2024 Cosigned by Semaj [...] Name: Blair Gilbert Date: 1985 Billing #: [id number] Date of Procedure: 10/25/2024 Diagnosis: End Stage Renal Disease Procedure: 1. Donor Kidney Transplant 2. Back Bench Preparation Donor Kidney 3. Baseline Kidney transplant biopsy 4. Insertion of Indwelling Stent 5. Removal of Perihepatic packing Surgeons * Flaquito Ba MD Single Pass Soil Stabilizer Operator MD Shayan Findings: Low Hockey stick [...] donor was ABO O and UNOS ID [id number], Match [place] [id number] (SLK). This donor was a Donor after [...] was then wanded with the lap detection administrative personal assistant. The incision was ex tented 2 [...] and closure. Flaquito Ba MD Transplant Surgeon product safety engineer * Flaquito Ba MD - 10/27/2024 6:15 AM EDT TRANSPLANT KIDNEY with bile duct reconstruction Brief Op Note Blair Gilbert 10/27/2024 Pre-op Diagnosis: Acute kidney injury superimposed on CKD (CMS-HCC) [N17.9, N18.9] Post-op Diagnosis: same Procedure(s): TRANSPLANT KIDNEY Surgeon(s): MD Semaj Washington III, MD Anesthesia: General Endotracheal Staff: Information Systems Supervisor: Chinedu Quinn RN Scrub Person: ST Angela Fellow: Kemar Sahni MD 2nd Information Systems Supervisor: Marty Clark RN 3rd Information Systems Supervisor: ЮЛИЯ Gannon Berkowitz 3 day Drains: Intraabdominal (perihepatic) UNOS ID [id number], Match [place] [id number] Kid WIT 27 min Kid CIT 33 [...] (Berkowitz) Triple-lumen (3-Way) 18 Fr. (Active) Status [place] Drainage 10/26/241999 Collection Container Standard drainage bag [...] Washington III, MD Anesthesia: General Endotracheal Staff: Information Systems Supervisor: Chinedu Quinn RN Relief Information Systems Supervisor: Michela Amos RN Relief Scrub: Stephani Blake RN Scrub Person: ST Angela Fellow: Kemar Sahni MD 2nd Information Systems Supervisor: Marty Clark RN 3rd Information Systems Supervisor: Candis Mcdaniel RN Estimated Blood Loss: 300 [...] (Berkowitz) Triple-lumen (3-Way) 18 Fr. (Active) Status [place] Drainage 10/26/241999 Collection Container Standard drainage bag [...] day Drains: 2 Intraabdominal (perihepatic) UNOS ID [id number], Match [place] [id number] Donor: young DCD NRP Kid WIT 27 [...] BLAIR GILBERT DATE OF : 1985 CSN: [id number] PHYSICIAN: Semaj Mcnair III, MD ADMIT DATE: 10/25/2024 DICTATED BY: Semaj Mcnair III, MD SURGERY DATE: 10/27/2024 OPERATIVE REPORT SURGEON: Semaj Mcnair III, MD NEW CAR MAKE READY WORKER SURGEON: Kemar Sahni MD. PREOPERATIVE DIAGNOSIS: Open [...] were made hemostatic with the argon beam deputy building guard. We assessed the flows of the [...] a mucocele formation. We then performed a gakv-xz-tava choledochocholedochostomy in an end to end fashion [...] small umbilicalhernia that was closed with a swdsas-cs-wepal 0 PDS suture. At this point, we [...] complications. SEMAJ MCNAIR III, MD RCQ/AQ JOB#: [id number] * Semaj Mcnair III, MD - 10/26/2024 7:00 AM EDT Patient Name: Blair Gilbert Date: 1985 Billing #: [id number] Date of Procedure: 10/25/2024 - 10/26/2024 Diagnosis: Chronic Hepatic Failure without coma Procedure: 1. Orthotopic Liver Transplant 2. Back Bench Preparation Donor Liver 3. Temporary portocaval shunt 4. Perihepatic packing for control of hemorrhage 5. Placement of external choledochal stent 6. Temporary abdominal closure Attending surgeons: Semaj Mcnair III, MD Single Pass Soil Stabilizer Operator Surgeon(s): Sveta Judge MD Findings: Whole organ placed in piggyback fashion with suprahepatic cava of donor to common orifice of all three hepatic veins for IVC anastomosis. Donor main portal vein to recipient main portal vein. Donor common hepatic artery to recipient right hepatic artery. Temporary abdominal with perihepatic packingfor control of hemorrhage. Externalization of bile duct with 8 Armenian pediatric feeding tube. Portal Flow Modulation No [...] This donor was ABO O and UNOSID [id number], Match Run [id number]. This was a 42-year-old donation after circulatory [...] After completion of the outflow anastomosis, a Cambodian clamp was placed across the donor suprahepatic [...] do a temporary abdominal closure. An 8 Armenian pediatric feeding tube was brought through the [...] Sveta Alves III, MD Anesthesia: General Staff: Information Systems Supervisor: Mak Maher RN; Marty Clark RN Scrub Person: ST Angela Resident: Thuy Leon MD loan consultant: Jose Daniel Arana RRT Estimated Blood Loss: [...] Number of days: 5 Surgery Information: -UNOS#: [id number] -ABO: O to O -Recipient: SLK candidate [...] 1:19 PM EDTAssociated Order(s): IP CONSULT TO BUS DRIVER SUPERVISOR [facility] Transplant Discharge Education Note Assessment: [...] Education Outcome: 3 - Comprehends albarado points OLIVE Saunders, RN, NPD- Diabetes Education Office [phone] Schedule: M-F 8:00am-4:30pm * Ben Weiss, RD - 10/27/2024 4:06 PM EDTAssociated Order(s): IP CONSULT TO NUTRITION SERVICES; IP CONSULT TO NUTRITION SERVICES TXP - Initial [facility] Medical Nutrition Therapy Reason(s) for [...] I/O: +23.2L net volume. Last BM Date: (CURB HOP). Admit Weight: 270 lb (122.5 kg) Current [...] glucose, HYDROmorphone OR HYDROmorphone, sodium chloride 0.45% (2 NS) Vital Signs: Temp: [98.2 ??F (36.8 [...] Based on DBW of 93.1 kg Kcals/day: 2293-0141 (25-30 kcals/kg) Protein g/day: 140-190 (1.5-2.0 g/kg) [...] Dietitian - Solid Organ Transplant Contact via [employer] Chat * Lavell Kramer MD - 10/27/2024 11:09 AM EDTAssociated Order(s): INPATIENT CONSULT TO TRANSPLANT INFECTIOUS DISEASES Infectious Disease Consultation Patient: Blair Gilbert CSN: [id number] Assessment & Plan 39 y.o. M s/p [...] blood cx's if febrile Lavell Kramer MD [phone] Chief Complaint Long Qtc History of Present [...] Low Risk (07/09/2024) Received from [facility] Overall Financial Resource Strain (CARDIA) Difficulty [...] No Physical Activity: Unknown (07/14/2024) Received from [facility] Exercise Vital Sign Days of Exercise per Week: Patient unable to answer Minutes of Exercise per Session: Not on file Stress: Patient Unable To Answer (07/14/2024) Received from [facility] [place] [facility] [employer]ational [facility] - Occupational Stress Questionnaire Feeling of Stress : Patient unable to answer Social Connections: Patient Unable To Answer (07/14/2024) Received from [facility] Social Connection and Isolation Panel [NHANES] Frequency of Communication with Friends and Family: Patient unable to answer Frequency of Social Gatherings with Friends and Family: Patient unable to answer Attends Hinduism Services: Patient unable to answer Active Member [...] glucose, HYDROmorphone OR HYDROmorphone, sodium chloride 0.45% (1/ NS) Vital Signs Temp: [98.2 ??F (36.8 [...] day. blood-glucose meter (TRUE METRIX GLUCOSE METER) [facility] Use to test blood sugar up to 4 times a day. DEXCOM G7 PHYSICAL THERAPY COORDINATOR Misc Use reader as directed. DEXCOM [...] times a day. 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 No indications for LATENT FINGERPRINT EXAMINER. Good UOP - Noted KT US WNL [...] preliminary until attending attestation. Lauren Santos, SAMSON, PROPOSAL SPECIALIST, ACID CONDITIONER- Transplant Nephrology [phone] Preferred contact: secure chat [1] Allergies Allergen [...] Gonzalez MD, MEd, FASN * Marcellus Hebert, BOOKING PRIZER, SENIOR SOFTWARE TEST ENGINEER - 10/27/2024 10:21 AM EDT HEALTH Care Management/Social Work Assessment Patient Information Patient Name: Blair Gilbert Hospital Day: 2 Inpatient/Observation: Inpatient Admit Date: 10/25/2024 Admission Diagnosis: Liver transplant recipient (CMS-HCC) [Z94.4] Attending provider: Semaj Mcnair III, MD PCP: Enedina Mcguire NP Home Pharmacy: [facility] [address] [place] [address], [facility] [address] [place] [address] [address] [facility] [address] [facility] [address] Issues related to obtaining medications: N/A Payor Information Medical Insurance Coverage: Payor: [facility] / Plan: [facility] [...] History: 12 weeks of CD Treatement at [facility] Do you need Substance Abuse [...] No Status & Connection to VA Services [place] Status & Connection to VA Services Are [...] currently resides with his spouse at their [facility] in [place]. 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 Patient's LNOK:Spouse, Abdiaziz Gilbert, Patient has no current or past history of suicidal/homicidal ideation. Patient has a history of mental health diagnoses, PTSD and Generalized Anxiety Disorder. Patient is connected with TransplantPsychiatrist and prescribed Prozac. Patient has a history of alcohol use and has completed 12 weeksof CD Treatment at [facility]. Spouse explained that he will complete a 6 month virtual program post transplant but could not recall the name of the program. Patient has no current tobacco use. No previous need or recommendation for home health care services and no previous placements at alf facility and/or inpatient rehab program. Patient has [...] interest(s) are disclosed as appropriate. NUBIA Escalera, ORNALDO Phone Number: [phone] * John Moreno MD - 10/26/2024 3:41 AM EDT SURGICAL ICU CONSULT NOTE 10/26/2024 3:41 AM Name: Blair Gilbert CSN: [id number] HPI: Blair Gilbert is a 39 y.o. [...] at 9:00 PM naloxone (NARCAN) 4 mg/actuation [place] Apply 1 spray in one nostril if [...] % 250 mL infusion 2.5 mcg/min (10/26/24 1576) insulin regular in 0.9 % sodium chloride norepinephrine 18 mcg/min (10/26/24 2122) vasopressin 0.04 Units/min (10/26/24 1274) PRN Meds: heparin (porcine) 5,000 unit/mL 10,000 [...] input(s): PHART , PCO2 , PO2ART , WAY4GQH , BEART in the last 72 hours. [...] at baseline or with provocation, shows no ggumj-zs-stpm atrial level shunt. - Pulmonary arteries: Systolic [...] IV pantoprazole while intubated, NPO Last BM: CURB HOP Bowel regimen: Senna/Miralax when able Nausea: Zofran PRN FLUID/ELECTROLYTES Recent Labs 10/25/24 2217 NA 137 K 2.1* CL 100 CO2 20* BUN 74* CREATININE 3.87* CALCIUM 9.3 PHOS 5.9* GLUCOSE 114* Intake/Output Summary (Last 24 hours) at 10/26/2024 0341 Last data filed at 10/26/2024 0326 Gross per 24 hour Intake 41065 ml Output 675 ml Net 87584 ml IV Fluids: EPINEPHrine (ADRENALIN) 10 mg in sodium chloride 0.9 % 250 mL infusion, Last Rate: 2.5 mcg/min (10/26/24 0339) insulin regular in 0.9 % sodium chloride norepinephrine, Last Rate: 18 mcg/min (10/26/24312) vasopressin, Last Rate: 0.04 Units/min (10/26/24 0244) [...] results for input(s): TEGANGLE , TEGKTIME , BQQWPSOV80 , TEGMAXAMPL , TEGRTIME , CBMZ in [...] in sodium chloride 0.9% 100 mL IVPB (Vixp6Sls) 2 g Every 6 hours 10/26/2024 -- Admin Instructions: Use Krhd4Wga Adapter - Mix Thoroughly Before Administration Notes to Pharmacy: On medical orderly estimated creatinine clearance is 35.9 mL/min (A) (based on SCr of 3.87 mg/dL (H)). Route: Intravenous AMPicillin 2 g in sodium chloride 0.9% 100 mL IVPB (Akoz5Ako) 2 g Once 10/26/2024 -- Admin Instructions: Use Jlvc8Lba Adapter - Mix Thoroughly Before Administration Notes to Pharmacy: On medical orderly estimated creatinine clearance is 35.9 mL/min (A) (based on SCr of 3.87 mg/dL (H)). Route: Intravenous cefTRIAXone (ROCEPHIN) 2 g in sodium chloride 0.9 % 100 mL Zkns5Pww (Completed) 2 g Once 10/25/2024 10/26/2024 Admin Instructions: Use Xthj5Lbw Adapter - Mix Thoroughly Before Administration Route: [...] R IJ Mac Arterial Line? R radial [place] Urinary Catheter? Berkowitz - Reason: Adequate I/O [...] 47 (H) 10/26/2024 PO2ART 127 (H) 10/26/2024 HHH5WGZ 21 (L) 10/26/2024 BEART -5.4 (L) 10/26/2024 UAI8RIL 94.6 (L) 10/26/2024 [id number] 98 10/26/2024 P:F ratio = 363 CARDIOVASCULAR: [...] syndrome Esophageal varices GERD - s/p OLT 6/15 pending bile duct reconstruction - drains Q1h, [...] Care Surgery, and Surgical Critical Care [facility] Academic Office [phone] For Transfers, call [phone] documented in this encounter Nursing Notes * [...] s/p OLT. Patient arrived to SICU bed [facility]ICU[facility]28[facility] via hospital bed . Patient arrived intubated. [...] Progressing * Care Coordination - NUBIA Escalera, SENIOR SOFTWARE TEST ENGINEER - 10/31/2024 11:34 AM EDT [facility] Case Management/Social Work Department Progress Note Patient Information Patient Name: Blair Gilbert Hospital day: 6 Inpatient/Observation: Inpatient Level of Care: Transplant Admit date: 10/25/2024 Admission diagnosis: Liver transplant recipient (CMS-HCC) [Z94.4] PMH: has a past medical history of Alcoholic cirrhosis of liver (CMS-HCC), Esophageal varices (CMS-HCC), Hepatorenal syndrome (CMS-HCC), Hypertension, Other hyperlipidemia (07/26/2024), Renal cell carcinoma ([facility]-HCC), Thrombocytopenia ([facility]-HCC), and Thyroid disease. PCP: Enedina Mcguire NP Home Pharmacy: [facility] [address] [place] [id number] [facility] [address] [facility] [address] [facility] [place], [place] - [address] [facility] 105 [facility] [id number] Medical Insurance Coverage: Payor: [employer] [...] educator aware that there were no accepting [facility] agencies([facility], [facility], [facility]) and patient would need to outpatient for PT/OT and labs. Discharge Plan Anticipated discharge plan: Home with HHC vs Home with outpatient Anticipated discharge date: 11/01 CM/SW will continue to follow and remain available for discharge planning needs. NUBIA Escalera, RONALDO Cell [phone] * Plan of Care - Paulette Flannery [...] - 10/29/2024 1:53 PM EDT [facility] Case Management/Social Work Department Progress Note [...] disease. PCP: Enedina Mcguire NP Home Pharmacy: [facility] [address] [place] [address] [facility] [address] [facility] [address] [facility] [place] - [address] [id number] Medical Insurance Coverage: Payor: [employer] [...] SW submitted blanket HHC referral to [facility] [place], [facility], [facility], and [facility]. Awaiting responses. SW to followpending [...] available for discharge planning needs. Citlaly Nova, NUBIA, SENIOR SOFTWARE TEST ENGINEER Inpatient Asset Protection Detective/Care Coordination [phone] * Plan of Care - Soco Yap [...] - 10/28/2024 2:29 PM EDT [facility] Case Management/Social Work Department Progress Note [...] disease. PCP: Enedina Mcguire NP Home Pharmacy: [facility] [address] [facility] [address] [address] [facility] [address] [facility] [address] [facility] [place] - [address] [place] [place] [address] Medical Insurance Coverage: Payor: [facility] [employer] C[employer] / Plan: [employer] / [...] available for discharge planning needs. NUBIA Escalera, SENIOR SOFTWARE TEST ENGINEER Cell [phone] * Plan of Care - Elaine Carrillo [...] at all times. Outcome: Completed Problem: Non-violent, qnl-nzll-aybhalgkphb restraints Description: Less restrictive alternative interventions will [...] of medical procedures, or protection of medical insurance coding specialist access. Outcome: Completed * Plan of [...] foods as appropriate. Outcome: Progressing Problem: Non-violent, mmz-qbco-yxowwwbapar restraints Description: Less restrictive alternative interventions will [...] of medical procedures, or protection of medical insurance coding specialist access. Outcome: Progressing * Plan of Care - Shanel Shen RN - 10/27/2024 9:00 AM EDT Problem: Non-violent, dpe-mdxx-dorjhfmwkjn restraints Description: Less restrictive alternative interventions will [...] - 10/26/2024 7:41 PM EDT Problem: Non-violent, gjz-jumh-wmqnuyuqfre restraints Description: Less restrictive alternative interventions will [...] of medical procedures, or protection of medical insurance coding specialist access. Outcome: Not Progressing Patient in [...] restraint flowsheet for further documentation. Problem: Non-violent, ptl-gzkv-vypaelpeyuw restraints Description: Less restrictive alternative interventions will [...] of medical procedures, or protection of medical insurance coding specialist access. Outcome: Progressing * Plan of [...] 12/05/2024 8:01 AM EDT Hospital Encounter [facility] ENDOSCOPY [address] [place] [address] Chris Orosco MD [address] [place] [phone] 12/05/2024 8:01 AM EDT - 12/05/2024 8:[address] [facility] ENDOSCOPY [address] [place] [phone] Chris Orosco MD [address] [place] [phone] EGD Pending Results Name Type Priority Associated [...] Routine 10/31/2024 11:59 AM EDT US DUPLEX SJD-UBIITC-AAPKBHF COMPLETE Routine 10/31/2024 10:19 AM EDT US [...] AM EDT ECG 12-LEAD (MUSE) STAT 10/30/2024 6 :51 AM EDT HEPATIC FUNCTION PANEL Routine 5:41 [...] Routine 10/28/2024 5:31 PM EDT US DUPLEX NXG-VTOGBF-WIEAVCK COMPLETE STAT 10/28/2024 4:23 PM EDT US [...] Routine 10/27/2024 10:00 AM EDT US DUPLEX LHL-DFWAHS-ZWOKFEO COMPLETE STAT 10/27/2024 9:51 AM EDT US [...] AM EDT SURGICAL PATHOLOGY EXAM Routine 10/28/19 25 2:38 AM EDT Acute kidney injury superimposed on CKD ([facility]-HCC) ROUTINE CULTURE PLUS STAIN Routine 10/27/2024 [...] - 100 mg/dL 11/02/2024 5:45 PM EDT [facility] Blood 11/02/2024 5:44 PM EDT 11/02/2024 5:45 PM EDT Semaj Mcnair III, MD POINT OF CARE TEST ORDERABLES Final Result Performing Organization Address [facility] Co de Phone Number [address] * (ABNORMAL) POC Glucose Monitoring Device (11/02/2024 3:34 PM EDT) POC Glucose Monitoring Device 208(H) 70 - 100 mg/dL 11/02/2024 3:35 PM EDT [facility] Blood 11/02/2024 3:34 PM EDT 11/02/2024 3:35 PM EDT us Semaj Mcnair III, MD POINT OF CARE TEST ORDERABLES Final Result Performing Organization Address City/[facility] Co de Phone Number [facility] [address] [place] [address] * (ABNORMAL) POC Glucose Monitoring Device (11/02/2024 1:18 PM EDT) POC Glucose Monitoring Device 225(H) 70 - 100 mg/dL 11/02/2024 1:19 PM EDT [facility] Blood 11/02/2024 1:18 PM EDT 11/02/2024 1:19 PM EDT Semaj Mcnair III, MD POINT OF CARE TEST ORDERABLES Final Result Performing Organization Address City/[facility] Co de Phone Number [facility] [address] [facility]. [address] * (ABNORMAL) POC Glucose Monitoring Device (11/02/2024 8:59 AM EDT) POC Glucose Monitoring Device 129(H) 70 - 100 mg/dL 11/02/2024 9:00 AM EDT [facility] Blood 11/02/2024 8:59 AM EDT 11/02/2024 9:00 AM EDT Semaj Mcnair III, MD POINT OF CARE TEST ORDERABLES Final Result Performing Organization Address [facility] de Phone Number [facility] [address] [place] [address]. [address] * Tacrolimus level (11/02/2024 5:53 AM EDT) Tacrolimus (LC-MS) 7.4 3.0 - 15.0 ng/mL 11/02/2024 2:23 PM EDT [facility] Comment:Performed via liquid chromatography tandem mass spectrometry. Detection limit: 1 ng/mL. Individual target concentrations may vary due to target organ and time after transplant. This test has been developed and its performance characteristics determined by [facility] which is certified under the [...] l Result Performing Organization Address [facility] Co de Phone Number [facility] [address] [facility]. [address] * (ABNORMAL) Renal Function Panel w/EGFR (11/02/2024 5:53 AM EDT) Sodium 140 133 - 146 mmol/L 11/02/2024 6:47 AM EDT [facility] Potassium 3.3(L) 3.5 - 5.3 mmol/L 11/02/2024 6:47 AM EDT [facility] Chloride 107 98 - 110 mmol/L 11/02/2024 6:47 AM EDT [facility] CO2 25 21 - 33 mmol/L 11/02/2024 6:47 AM EDT [facility] Anion Gap 8 3 - 16 mmol/L 11/02/2024 6:47 AM EDT [facility] BUN 31(H) 7 - 25 mg/dL 11/02/2024 6:47 AM EDT [facility] Creatinine 1.08 0.60 - 1.30 mg/dL 11/02/2024 6:47 AM EDT [facility] Glucose 150(H) 70 - 100 mg/dL 11/02/2024 6:47 AM EDT [facility] Calcium 7.8(L) 8.6 - 10.3 mg/dL 11/02/2024 6:47 AM EDT [facility] Phosphorus 2.0(L) 2.1 - 4.7 mg/dL 11/02/2024 6:47 AM EDT [facility] Albumin 3.2(L) 3.5 - 5.7 g/dL 11/02/2024 6:47 AM EDT [facility] Osmolality, Calculated 299 278 - 305 mOsm/kg 11/02/2024 6:47 AM EDT [facility] EGFR 88 11/02/2024 6:47 AM EDT [facility] Comment:As [...] EDT 11/02/2024 6:12 AM EDT Beata Bessn POST MANAGER LAB BLOOD ORDERABLES Denisse l Result Performing Organization Address [facility] Co de Phone Number [facility] [address] [facility]. [address] * (ABNORMAL) Magnesium (11/02/2024 5:53 AM EDT) Magnesium 1.3(L) 1.5 - 2.5 mg/dL 11/02/2024 6:47 AM EDT [facility] Plasma 11/02/2024 5:53 AM EDT 11/02/2024 6:12 AM EDT Beata Garland Evens [facility] BLOOD ORDERABLES Denisse l Result Performing Organization Address [facility] de Phone Number [facility] [address] [facility]. [address] * (ABNORMAL) Hepatic Function Panel (11/02/2024 5:53 AM EDT) Total Bilirubin 1.6(H) 0.0 - 1.5 mg/dL 11/02/2024 6:47 AM EDT [facility] Bilirubin, Direct 0.81(H) 0.00 - 0.40 mg/dL 11/02/2024 6:47 AM EDT [facility] AST 30 13 - 39 U/L 11/02/2024 6:47 AM EDT [facility] ALT 66(H) 7 - 52 U/L 11/02/2024 6:47 AM EDT [facility] Alkaline Phosphatase 126(H) 36 - 125 U/L 11/02/2024 6:47 AM EDT [facility] Total Protein 4.6(L) 6.4 - 8.9 g/dL 11/02/2024 6:47 AM EDT [facility] Albumin 3.2(L) 3.5 - 5.7 g/dL 11/02/2024 6:47 AM EDT [facility] Bilirubin, Indirect 0.79 0.00 - 1.10 mg/dL 11/02/2024 6:47 AM EDT [facility] Plasma 11/02/2024 5:53 AM EDT 11/02/2024 6:12 AM EDT us Beata Horner POST MANAGER LAB BLOOD ORDERABLES Denisse l Result [facility] [address] * (ABNORMAL) CBC (11/02/2024 5:53 AM EDT) WBC 5.8 3.8 - 10.8 10E3/uL 11/02/2024 6:21 AM EDT [facility] RBC 3.12(L) 4.20 - 5.80 10E6/uL 11/02/2024 6:21 AM EDT [facility] Hemoglobin 9.2(L) 13.2 - 17.1 g/dL 11/02/2024 6:21 AM EDT [facility] Hematocrit 27.5(L) 38.5 - 50.0 % 11/02/2024 6:21 AM EDT [facility] MCV 87.9 80.0 - 100.0 fL 11/02/2024 6:21 AM EDT [facility] MCH 29.5 27.0 - 33.0 pg 11/02/2024 6:21 AM EDT [facility] MCHC 33.5 32.0 - 36.0 g/dL 11/02/2024 6:21 AM EDT [facility] RDW 17.5(H) 11.0 - 15.0 % 11/02/2024 6:21 AM EDT [facility] Platelets 61(L) 140 - 400 10E3/uL 11/02/2024 6:21 AM EDT [facility] MPV 7.9 7.5 - 11.5 fL 11/02/2024 6:21 AM EDT [facility] Whole Blood 11/02/2024 5:53 AM EDT 11/02/2024 6:12 AM EDT Beata Horner [facility] LAB BLOOD ORDERABLES Denisse l Result [facility] [address] [facility]. [address] * (ABNORMAL) POC Glucose Monitoring Device (11/01/2024 9:26 PM EDT) POC Glucose Monitoring Device 199(H) 70 - 100 mg/dL 11/01/2024 9:27 PM EDT [facility] Blood 11/01/2024 9:26 PM EDT 11/01/2024 9:27 PM EDT Semaj Mcnair III, MD POINT OF CARE TEST ORDERABLES Final Result Performing Organization Address City/[facility]/ZIP Co de Phone Number [facility] [address] [facility]. [address] * (ABNORMAL) POC Glucose Monitoring Device (11/01/2024 5:04 PM EDT) POC Glucose Monitoring Device 255(H) 70 - 100 mg/dL 11/01/2024 5:05 PM EDT [facility] Blood 11/01/2024 5:04 PM EDT 11/01/2024 5:05 PM EDT Semaj Mcnair III, MD POINT OF CARE TEST ORDERABLES Final Result [facility] [address] [facility]. [address] * (ABNORMAL) Renal Function Panel w/EGFR, STAT (11/01/2024 2:17 PM EDT) Sodium 139 133 - 146 mmol/L 11/01/2024 3:10 PM EDT [facility] Potassium 3.3(L) 3.5 - 5.3 mmol/L 11/01/2024 3:10 PM EDT [facility] Chloride 107 98 - 110 mmol/L 11/01/2024 3:10 PM EDT [facility] CO2 24 21 - 33 mmol/L 11/01/2024 3:10 PM EDT [facility] Anion Gap 8 3 - 16 mmol/L 11/01/2024 3:10 PM EDT [facility] BUN 35(H) 7 - 25 mg/dL 11/01/2024 3:10 PM EDT [facility] Creatinine 1.22 0.60 - 1.30 mg/dL 11/01/2024 3:10 PM EDT [facility] Glucose 203(H) 70 - 100 mg/dL 11/01/2024 3:10 PM EDT [facility] Calcium 8.3(L) 8.6 - 10.3 mg/dL 11/01/2024 3:10 PM EDT [facility] Phosphorus 2.2 2.1 - 4.7 mg/dL 11/01/2024 3:10 PM EDT [facility] Albumin 3.4(L) 3.5 - 5.7 g/dL 11/01/2024 3:10 PM EDT [facility] Osmolality, Calculated 302 278 - 305 mOsm/kg 11/01/2024 3:10 PM EDT [facility] EGFR 76 11/01/2024 3:10 PM EDT [facility] [...] Marks MD LAB BLOOD ORDERABLES Final Result [facility] [address] [place] [address], [facility] * X-ray Portable Abdomen AP view [...] - 100 mg/dL 11/01/2024 12:23 PM EDT [facility] Blood 11/01/2024 12:2 2 PM EDT 11/01/2024 12:23 PM EDT Semaj Mcnair III, MD POINT OF CARE TEST ORDERABLES Final Result Performing Organization Address [facility] Co de Phone Number [facility] [address] [place] [address]. [address] * (ABNORMAL) POC Glucose Monitoring Device (11/01/2024 8:50 AM EDT) POC Glucose Monitoring Device 175(H) 70 - 100 mg/dL 11/01/2024 8:51 AM EDT [facility] Blood 11/01/2024 8:50 AM EDT 11/01/2024 8:51 AM EDT Semaj Mcnair III, MD POINT OF CARE TEST ORDERABLES Final Result Performing Organization Address [facility] de Phone Number [facility] [address] [place] [address]. [address] * Tacrolimus level (11/01/2024 6:01 AM EDT) Tacrolimus (LC-MS) 7.5 3.0 - 15.0 ng/mL 11/01/2024 12:14 PM EDT [facility] Comment:Performed via liquid chromatography tandem mass spectrometry. Detection limit: 1 ng/mL. Individual target concentrations may vary due to target organ and time after transplant. This test has been developed and its performance characteristics determined by [facility] which is certified under the [...] PharmD LAB BLOOD ORDERABLES Denisse valle Result [facility] [address] [place] [address], [facility] * (ABNORMAL) Renal Function Panel w/EGFR (11/01/2024 6:01 AM EDT) Sodium 139 133 - 146 mmol/L 11/01/2024 6:57 AM EDT [facility] Potassium 3.3(L) 3.5 - 5.3 mmol/L 11/01/2024 6:57 AM EDT [facility] Chloride 108 98 - 110 mmol/L 11/01/2024 6:57 AM EDT [facility] CO2 22 21 - 33 mmol/L 11/01/2024 6:57 AM EDT [facility] Anion Gap 9 3 - 16 mmol/L 11/01/2024 6:57 AM EDT [facility] BUN 37(H) 7 - 25 mg/dL 11/01/2024 6:57 AM EDT [facility] Creatinine 1.30 0.60 - 1.30 mg/dL 11/01/2024 6:57 AM EDT [facility] Glucose 163(H) 70 - 100 mg/dL 11/01/2024 6:57 AM EDT [facility] Calcium 8.2(L) 8.6 - 10.3 mg/dL 11/01/2024 6:57 AM EDT [facility] Phosphorus 2.9 2.1 - 4.7 mg/dL 11/01/2024 6:57 AM EDT [facility] Albumin 3.1(L) 3.5 - 5.7 g/dL 11/01/2024 6:57 AM EDT [facility] Osmolality, Calculated 300 278 - 305 mOsm/kg 11/01/2024 6:57 AM EDT [facility] EGFR 71 11/01/2024 6:57 AM EDT [facility] Comment:As [...] 6:01 AM EDT 11/01/2024 6:20 AM EDT [employer] POST MANAGER LAB BLOOD ORDERABLES Denisse l Result [facility] [address] * Magnesium (11/01/2024 6:01 AM EDT) Pathologist [facility] Magnesium 1.5 1.5 - 2.5 mg/dL 11/01/2024 6:57 AM EDT [facility] Plasma 11/01/2024 6:01 AM EDT 11/01/2024 6:20 AM EDT [employer] POST MANAGER LAB BLOOD ORDERABLES Denisse l Result [facility] [address] * (ABNORMAL) Hepatic Function Panel (11/01/2024 6:01 AM EDT) Total Bilirubin 2.0(H) 0.0 - 1.5 mg/dL 11/01/2024 6:57 AM EDT [facility] Bilirubin, Direct 1.06(H) 0.00 - 0.40 mg/dL 11/01/2024 6:57 AM EDT [facility] AST 21 13 - 39 U/L 11/01/2024 6:57 AM EDT [facility] ALT 62(H) 7 - 52 U/L 11/01/2024 6:57 AM EDT [facility] Alkaline Phosphatase 114 36 - 125 U/L 11/01/2024 6:57 AM EDT [facility] Total Protein 4.6(L) 6.4 - 8.9 g/dL 11/01/2024 6:57 AM EDT [facility] Albumin 3.1(L) 3.5 - 5.7 g/dL 11/01/2024 6:57 AM EDT [facility] Bilirubin, Indirect 0.94 0.00 - 1.10 mg/dL 11/01/2024 6:57 AM EDT [facility] Plasma 11/01/2024 6:01 AM EDT 11/01/2024 6:20 AM EDT Beata Horner POST MANAGER LAB BLOOD ORDERABLES Denisse valle Result [facility] [address] * (ABNORMAL) CBC (11/01/2024 6:01 AM EDT) WBC 5.9 3.8 - 10.8 10E3/uL 11/01/2024 6:29 AM EDT [facility] RBC 3.19(L) 4.20 - 5.80 10E6/uL 11/01/2024 6:29 AM EDT [facility] Hemoglobin 9.5(L) 13.2 - 17.1 g/dL 11/01/2024 6:29 AM EDT [facility] Hematocrit 27.8(L) 38.5 - 50.0 % 11/01/2024 6:29 AM EDT [facility] MCV 87.1 80.0 - 100.0 fL 11/01/2024 6:29 AM EDT [facility] MCH 29.9 27.0 - 33.0 pg 11/01/2024 6:29 AM EDT [facility] MCHC 34.3 32.0 - 36.0 g/dL 11/01/2024 6:29 AM EDT [facility] RDW 17.4(H) 11.0 - 15.0 % 11/01/2024 6:29 AM EDT [facility] Platelets 56(L) 140 - 400 10E3/uL 11/01/2024 6:29 AM EDT [facility] MPV 8.3 7.5 - 11.5 fL 11/01/2024 6:29 AM EDT [facility] Whole Blood 11/01/2024 6:01 AM EDT 11/01/2024 6:19 AM EDT us Beata Horner [facility] LAB BLOOD ORDERABLES Denisse l Result [facility] [address] * (ABNORMAL) POC Glucose Monitoring Device (10/31/2024 9:15 PM EDT) POC Glucose Monitoring Device 171(H) 70 - 100 mg/dL 10/31/2024 9:15 PM EDT [facility] Blood 10/31/2024 9:15 PM EDT 10/31/2024 9:15 PM EDT us Semaj Mcnair III, MD POINT OF CARE TEST ORDERABLES Final Result [facility] [address] * (ABNORMAL) POC Glucose Monitoring Device (10/31/2024 5:56 PM EDT) POC Glucose Monitoring Device 179(H) 70 - 100 mg/dL 10/31/2024 5:57 PM EDT [facility] Blood 10/31/2024 5:56 PM EDT 10/31/2024 5:57 PM EDT Semaj Mcnair III, MD POINT OF CARE TEST ORDERABLES Final Result [facility] [address] [place] [address], [facility] * CT Abdomen and Pelvis WO [...] Adrenal gland: No focal nodule seen. Kidneys: [place] kidneys noted with nonobstructing calcifications on the right. Findings of postsurgical changes in the left [place] kidney. Mild right hydronephrosis without an obstructive [...] Adrenal gland: No focal nodule seen. Kidneys: [place] kidneys noted with nonobstructing calcifications on theright. Findings of postsurgical changes in the left [place] kidney. Mildright hydronephrosis without an obstructive course [...] QT: 400 ms QTc: 456 ms P [place]: 49 degrees R [place]: 3 degrees T [place]: 14 degrees Diagnosis Line: NORMAL SINUS RHYTHM ^ NORMAL ECG ^ ^ Confirmed by MD REID JAMES ([id number]) on 11/02/2024 6:56:52 AM Priti Geiger CNP ECG ORDERABLES Final Result MUSE * (ABNORMAL) Urinalysis w/Rfl to Microscopic (10/31/2024 1:18 PM EDT) Color, UA Straw Yellow,Straw 10/31/2024 1:46 PM EDT [facility] Clarity, UA Clear Clear 10/31/2024 1:46 PM EDT [facility] Specific [place], UA 1.013 1.005 - 1.035 10/31/2024 1:46 PM EDT [facility] pH, UA 6.5 5.0 - 8.0 10/31/2024 1:46 PM EDT [facility] Protein, UA Negative Negative mg/dL 10/31/2024 1:46 PM EDT [facility] Glucose, UA Negative Negative mg/dL 10/31/2024 1:46 PM EDT [facility] Ketones, UA Negative Negative mg/dL 10/31/2024 1:46 PM EDT [facility] Bilirubin, UA Negative Negative 10/31/2024 1:46 PM EDT [facility] Blood, UA Large(A) Negative 10/31/2024 1:46 PM EDT [facility] Nitrite, UA Negative Negative 10/31/2024 1:46 PM EDT [facility] Urobilinogen, UA <2.0 0.2 - 1.9 mg/dL 10/31/2024 1:46 PM EDT [facility] Leukocyte Esterase, UA Negative Negative 10/31/2024 1:46 PM EDT [facility] RBC, UA >100(H) 0 - 3 /HPF 10/31/2024 1:46 PM EDT [facility] WBC, UA 3 0 - 5 /HPF 10/31/2024 1:46 PM EDT [facility] Hyaline Casts, UA 3(H) 0 - 2 /LPF 10/31/2024 1:46 PM EDT [facility] Urine 10/31/2024 1:18 PM EDT 10/31/2024 1:32 PM EDT Priti Geiger CNP URINE ORDERABLES Final Result Performing Organization Address City/[facility]/ZIP Co de Phone Number [facility] [address] * (ABNORMAL) Post Kidney Transplant Urine Culture (10/31/2024 1:18 PM EDT) Culture Result Enterococcus faecium, Vancomycin Resistant(A) [facility] Comment: 1,000- <10,000 cfu/mL [...] ORDERA BLES Final Result Performing Organization Address City/[facility]/ZIP Co de Phone Number [facility] [address] [facility]. [address] * (ABNORMAL) POC Glucose Monitoring Device (10/31/2024 11:59 AM EDT) POC Glucose Monitoring Device 130(H) 70 - 100 mg/dL 10/31/2024 12:21 PM EDT [facility] Blood 10/31/2024 11:5 9 AM EDT 10/31/2024 12:21 PM EDT us Semaj Mcnair III, MD POINT OF CARE TEST ORDERABLES Final Result [facility] [address] * US Abdomen Limited (10/31/2024 10:19 [...] EXAM: US ABDOMEN LIMITED EXAM: US DUPLEX [id number] COMPLETE INDICATION: Post-op liver transplant COMPARISON: None [...] visualized secondary to poor acoustic windows. The [place] right kidney measures 11.6 cm in length. [...] EXAM: US ABDOMEN LIMITED EXAM: US DUPLEX [id number] COMPLETE INDICATION: Post-op liver transplant COMPARISON: None [...] well visualized secondary to poor acousticwindows. The [place] right kidney measures 11.6 cm in length. [...] 10/31/2024 10:35 AM EDT us Beata Horner [facility] US ORDERABLES Final R esult * US [...] at 10/31/2024 10:29 AM EDT us Beata Garland [employer] POST MANAGER IMG US ORDERABLES Final R esult * US Duplex [id number] Comp (10/31/2024 10:19 AM EDT) Anatomical Region [...] EXAM: US ABDOMEN LIMITED EXAM: US DUPLEX [id number] COMPLETE INDICATION: Post-op liver transplant COMPARISON: None [...] visualized secondary to poor acoustic windows. The [place] right kidney measures 11.6 cm in length. [...] EXAM: US ABDOMEN LIMITED EXAM: US DUPLEX [id number] COMPLETE INDICATION: Post-op liver transplant COMPARISON: None [...] well visualized secondary to poor acousticwindows. The [place] right kidney measures 11.6 cm in length. [...] 10/31/2024 10:35 AM EDT us Beata Horner [facility] IM US ORDERABLES Final R esult * ECG 12-lead (MUSE) (10/31/2024 8:57 AM EDT) 10/31/2024 8:57 AM EDT Narrative MUSE - 11/01/2024 9:21 AM EDT Ventricular Rate: 83 BPM Atrial Rate: 83 BPM P-R Interval: 168 ms QRS Duration: 102 ms QT: 392 ms QTc: 460 ms P [place]: 64 degrees R [place]: -18 degrees T [place]: 7 degrees Diagnosis Line: NORMAL SINUS RHYTHM ^ NORMAL ECG ^ ^ Confirmed by MD JOE, OTIS ([id number]) on 11/01/2024 9:21:13 AM Kerijosephra Geiger POST MANAGER ECG ORDERABLES Final Result MUSE * (ABNORMAL) POC Glucose Monitoring Device (10/31/2024 8:44 AM EDT) POC Glucose Monitoring Device 145(H) 70 - 100 mg/dL 10/31/2024 8:45 AM EDT [facility] Blood 10/31/2024 8:44 AM EDT 10/31/2024 8:44 AM EDT Semaj Mcnair III, MD POINT OF CARE TEST ORDERABLES Final Result [facility] [address] * Tacrolimus level (10/31/2024 6:40 AM EDT) Tacrolimus (LC-MS) 8.4 3.0 - 15.0 ng/mL 10/31/2024 10:05 AM EDT [facility] Comment:Performed via liquid chromatography tandem mass spectrometry. Detection limit: 1 ng/mL. Individual target concentrations may vary due to target organ and time after transplant. This test has been developed and its performance characteristics determined by [facility] which is certified under the [...] PharmD LAB BLOOD ORDERABLES Denisse tori Result [facility] [address] [place] [address], [facility] * (ABNORMAL) Renal Function Panel w/EGFR (10/31/2024 6:40 AM EDT) Sodium 141 133 - 146 mmol/L 10/31/2024 8:09 AM EDT [facility] Potassium 3.5 3.5 - 5.3 mmol/L 10/31/2024 8:09 AM EDT [facility] Chloride 111(H) 98 - 110 mmol/L 10/31/2024 8:09 AM EDT [facility] CO2 20(L) 21 - 33 mmol/L 10/31/2024 8:09 AM EDT [facility] Anion Gap 10 3 - 16 mmol/L 10/31/2024 8:09 AM EDT [facility] BUN 54(H) 7 - 25 mg/dL 10/31/2024 8:09 AM EDT [facility] Creatinine 1.75(H) 0.60 - 1.30 mg/dL 10/31/2024 8:09 AM EDT [facility] Glucose 136(H) 70 - 100 mg/dL 10/31/2024 8:09 AM EDT [facility] Calcium 8.7 8.6 - 10.3 mg/dL 10/31/2024 8:09 AM EDT [facility] Phosphorus 4.1 2.1 - 4.7 mg/dL 10/31/2024 8:09 AM EDT [facility] Albumin 3.2(L) 3.5 - 5.7 g/dL 10/31/2024 8:09 AM EDT [facility] Osmolality, Calculated 309(H) 278 - 305 mOsm/kg 10/31/2024 8:09 AM EDT [facility] EGFR 50 10/31/2024 8:09 AM EDT [facility] Comment:As [...] 10/31/2024 7:35 AM EDT Beata Dada Horner [facility] LAB BLOOD ORDERABLES Denisse l Result Performing Organization Address [facility]/ZIP Co de Phone Number [facility] [address] [place] [address] * Magnesium (10/31/2024 6:40 AM EDT) Magnesium 1.8 1.5 - 2.5 mg/dL 10/31/2024 8:09 AM EDT [facility] Plasma 10/31/2024 6:40 AM EDT 10/31/2024 7:35 AM EDT [facility] BLOOD ORDERABLES Denisse l Result [facility] [address] [place] [address] * (ABNORMAL) Hepatic Function Panel (10/31/2024 6:40 AM EDT) Total Bilirubin 2.7(H) 0.0 - 1.5 mg/dL 10/31/2024 8:09 AM EDT [facility] Bilirubin, Direct 1.57(H) 0.00 - 0.40 mg/dL 10/31/2024 8:09 AM EDT [facility] AST 26 13 - 39 U/L 10/31/2024 8:09 AM EDT [facility] ALT 68(H) 7 - 52 U/L 10/31/2024 8:09 AM EDT [facility] Alkaline Phosphatase 112 36 - 125 U/L 10/31/2024 8:09 AM EDT [facility] Total Protein 4.7(L) 6.4 - 8.9 g/dL 10/31/2024 8:09 AM EDT [facility] Albumin 3.2(L) 3.5 - 5.7 g/dL 10/31/2024 8:09 AM EDT [facility] Bilirubin, Indirect 1.13(H) 0.00 - 1.10 mg/dL 10/31/2024 8:09 AM EDT [facility] Plasma 10/31/2024 6:40 AM EDT 10/31/2024 7:35 AM EDT Beata Horner POST MANAGER LAB BLOOD ORDERABLES Denisse l Result [facility] [address] * (ABNORMAL) CBC (10/31/2024 6:40 AM EDT) WBC 6.0 3.8 - 10.8 10E3/uL 10/31/2024 8:05 AM EDT [facility] RBC 3.14(L) 4.20 - 5.80 10E6/uL 10/31/2024 8:05 AM EDT [facility] Hemoglobin 9.6(L) 13.2 - 17.1 g/dL 10/31/2024 8:05 AM EDT [facility] Hematocrit 27.5(L) 38.5 - 50.0 % 10/31/2024 8:05 AM EDT [facility] MCV 87.6 80.0 - 100.0 fL 10/31/2024 8:05 AM EDT [facility] MCH 30.7 27.0 - 33.0 pg 10/31/2024 8:05 AM EDT [facility] MCHC 35.0 32.0 - 36.0 g/dL 10/31/2024 8:05 AM EDT [facility] RDW 17.9(H) 11.0 - 15.0 % 10/31/2024 8:05 AM EDT [facility] Platelets 44(L) 140 - 400 10E3/uL 10/31/2024 8:05 AM EDT [facility] Comment: CNV Specimen checked for clots. None detected. MPV 8.9 7.5 - 11.5 fL 10/31/2024 8:05 AM EDT [facility] Whole Blood 10/31/2024 6:40 AM EDT 10/31/2024 7:34 AM EDT Beata Horner [facility] BLOOD ORDERABLES Denisse l Result [facility] [address] [facility]. [address] * (ABNORMAL) POC Glucose Monitoring Device (10/30/2024 9:01 PM EDT) POC Glucose Monitoring Device 144(H) 70 - 100 mg/dL 10/30/2024 9:02 PM EDT [facility] Blood 10/30/2024 9:01 PM EDT 10/30/2024 9:01 PM EDT Semaj Mcnair III, MD POINT OF CARE TEST ORDERABLES Final Result [facility] [address] [facility]. [address] * (ABNORMAL) POC Glucose Monitoring Device (10/30/2024 5:37 PM EDT) POC Glucose Monitoring Device 124(H) 70 - 100 mg/dL 10/30/2024 5:47 PM EDT [facility] Blood 10/30/2024 5:37 PM EDT 10/30/2024 5:47 PM EDT Semaj Mcnair III, MD POINT OF CARE TEST ORDERABLES Final Result Performing Organization Address City/[facility]/ZIP Co de Phone Number [facility] [address] * (ABNORMAL) POC Glucose Monitoring Device (10/30/2024 7:26 AM EDT) POC Glucose Monitoring Device 150(H) 70 - 100 mg/dL 10/30/2024 7:27 AM EDT [facility] Blood 10/30/2024 7:26 AM EDT 10/30/2024 7:27 AM EDT Semaj Mcnair III, MD POINT OF CARE TEST ORDERABLES Final Result Performing Organization Address [facility] de Phone Number [facility] [address] * Tacrolimus level (10/30/2024 7:13 AM EDT) Tacrolimus (LC-MS) 9.5 3.0 - 15.0 ng/mL 10/30/2024 2:53 PM EDT [facility] Comment:Performed via liquid chromatography tandem mass spectrometry. Detection limit: 1 ng/mL. Individual target concentrations may vary due to target organ and time after transplant. This test has been developed and its performance characteristics determined by [facility] which is certified under the [...] EDT 10/30/2024 7:26 AM EDT Priti Geiger [facility] BLOOD ORDERABLES Final Re sult Performing Organization Address [facility] [facility] Co de Phone Number [facility] [address] * ECG 12-lead (MUSE) (10/30/2024 6:51 AM EDT) 10/30/2024 6:51 AM EDT Narrative MUSE - 11/01/2024 9:21 AM EDT Ventricular Rate: 92 BPM Atrial Rate: 92 BPM P-R Interval: 174 ms QRS Duration: 96 ms QT: 376 ms QTc: 464 ms P [place]: 54 degrees R [place]: -24 degrees T [place]: 11 degrees Diagnosis Line: NORMAL SINUS RHYTHM ^ NORMAL ECG ^ ^ Confirmed by MD JOE, OTIS ([id number]) on 11/01/2024 9:21:09 AM Priti Geiger POST MANAGER ECG ORDERABLES Final Result MUSE * (ABNORMAL) Renal Function Panel w/EGFR (10/30/2024 5:41 AM EDT) Sodium 140 133 - 146 mmol/L 10/30/2024 6:18 AM EDT [facility] Potassium 3.8 3.5 - 5.3 mmol/L 10/30/2024 6:18 AM EDT [facility] Chloride 111(H) 98 - 110 mmol/L 10/30/2024 6:18 AM EDT [facility] CO2 17(L) 21 - 33 mmol/L 10/30/2024 6:18 AM EDT [facility] Anion Gap 12 3 - 16 mmol/L 10/30/2024 6:18 AM EDT [facility] BUN 62(H) 7 - 25 mg/dL 10/30/2024 6:18 AM EDT [facility] Creatinine 1.96(H) 0.60 - 1.30 mg/dL 10/30/2024 6:18 AM EDT [facility] Glucose 116(H) 70 - 100 mg/dL 10/30/2024 6:18 AM EDT [facility] Calcium 9.0 8.6 - 10.3 mg/dL 10/30/2024 6:18 AM EDT [facility] Phosphorus 4.6 2.1 - 4.7 mg/dL 10/30/2024 6:18 AM EDT [facility] Albumin 3.2(L) 3.5 - 5.7 g/dL 10/30/2024 6:18 AM EDT [facility] Osmolality, Calculated 309(H) 278 - 305 mOsm/kg 10/30/2024 6:18 AM EDT [facility] EGFR 43 10/30/2024 6:18 AM EDT [facility] Comment:As [...] AM EDT 10/30/2024 5:47 AM EDT Beata Garland Evens [facility] LAB BLOOD ORDERABLES Denisse l Result Performing Organization Address City/[facility]/ZIP Co de Phone Number [facility] [address] * Magnesium (10/30/2024 5:41 AM EDT) Magnesium 2.2 1.5 - 2.5 mg/dL 10/30/2024 6:18 AM EDT [facility] Plasma 10/30/2024 5:41 AM EDT 10/30/2024 5:47 AM EDT [facility] BLOOD ORDERABLES Denisse l Result Performing Organization Address [facility] Co de Phone Number [facility] [address] * (ABNORMAL) Hepatic Function Panel (10/30/2024 5:41 AM EDT) Total Bilirubin 3.6(H) 0.0 - 1.5 mg/dL 10/30/2024 6:18 AM EDT [facility] Bilirubin, Direct 1.95(H) 0.00 - 0.40 mg/dL 10/30/2024 6:18 AM EDT [facility] AST 33 13 - 39 U/L 10/30/2024 6:18 AM EDT [facility] ALT 71(H) 7 - 52 U/L 10/30/2024 6:18 AM EDT [facility] Alkaline Phosphatase 80 36 - 125 U/L 10/30/2024 6:18 AM EDT [facility] Total Protein 4.8(L) 6.4 - 8.9 g/dL 10/30/2024 6:18 AM EDT [facility] Albumin 3.2(L) 3.5 - 5.7 g/dL 10/30/2024 6:18 AM EDT [facility] Bilirubin, Indirect 1.65(H) 0.00 - 1.10 mg/dL 10/30/2024 6:18 AM EDT [facility] Plasma 10/30/2024 5:41 AM EDT 10/30/2024 5:47 AM EDT Beata Horner [facility] LAB BLOOD ORDERABLES Denisse l Result Performing Organization Address City/State/[facility] Co de Phone Number [facility] [address] * (ABNORMAL) CBC (10/30/2024 5:41 AM EDT) WBC 8.1 3.8 - 10.8 10E3/uL 10/30/2024 8:06 AM EDT [facility] RBC 3.29(L) 4.20 - 5.80 10E6/uL 10/30/2024 8:06 AM EDT [facility] Hemoglobin 10.1(L) 13.2 - 17.1 g/dL 10/30/2024 8:06 AM EDT [facility] Hematocrit 28.8(L) 38.5 - 50.0 % 10/30/2024 8:06 AM EDT [facility] MCV 87.6 80.0 - 100.0 fL 10/30/2024 8:06 AM EDT [facility] MCH 30.6 27.0 - 33.0 pg 10/30/2024 8:06 AM EDT [facility] MCHC 34.9 32.0 - 36.0 g/dL 10/30/2024 8:06 AM EDT [facility] RDW 18.1(H) 11.0 - 15.0 % 10/30/2024 8:06 AM EDT [facility] Platelets 44(L) 140 - 400 10E3/uL 10/30/2024 8:06 AM EDT [facility] Comment: CNV Specimen checked for clots. None detected. MPV 8.3 7.5 - 11.5 fL 10/30/2024 8:06 AM EDT [facility] Whole Blood 10/30/2024 5:41 AM EDT 10/30/2024 5:50 AM EDT us Beata Horner [facility] LAB BLOOD ORDERABLES Denisse l Result [facility] [address] * (ABNORMAL) POC Glucose Monitoring Device (10/29/2024 10:18 PM EDT) POC Glucose Monitoring Device 140(H) 70 - 100 mg/dL 10/29/2024 10:18 PM EDT [facility] Blood 10/29/2024 10:1 8 PM EDT 10/29/2024 10:18 PM EDT us Semaj Mcnair III, MD POINT OF CARE TEST ORDERABLES Final Result [facility] [address] * (ABNORMAL) POC Glucose Monitoring Device (10/29/2024 6:42 PM EDT) POC Glucose Monitoring Device 152(H) 70 - 100 mg/dL 10/29/2024 6:43 PM EDT [facility] Blood 10/29/2024 6:42 PM EDT 10/29/2024 6:43 PM EDT Semaj Mcnair III, MD POINT OF CARE TEST ORDERABLES Final Result Performing Organization Address [facility] Co de Phone Number [facility] [address] * (ABNORMAL) POC Glucose Monitoring Device (10/29/2024 11:35 AM EDT) POC Glucose Monitoring Device 130(H) 70 - 100 mg/dL 10/29/2024 11:36 AM EDT [facility] Blood 10/29/2024 11:3 5 AM EDT 10/29/2024 11:36 AM EDT Result [facility] Semaj Mcnair III, MD POINT OF CARE TEST ORDERABLES Final Result Performing Organization Address [facility] Co de Phone Number [facility] [address] * ECG 12 lead (MUSE) (10/29/2024 9:34 AM EDT) 10/29/2024 9:34 AM EDT Narrative MUSE - 10/29/2024 10:34 PM EDT Ventricular Rate: 97 BPM Atrial Rate: 97 BPM P-R Interval: 186 ms QRS Duration: 104 ms QT: 382 ms QTc: 485 ms P [place]: 54 degrees R [place]: -21 degrees T [place]: 1 degrees Diagnosis Line: NORMAL SINUS RHYTHM ^ NORMAL ECG ^ Confirmed by JORGE MACIAS ([id number]) on 10/29/2024 10:34:50 PM Afshan Bear MD ECG ORDERABLES Final Result Performing Organization Address City/[facility]/ZIP Co de Phone Number MUSE * Tacrolimus level (10/29/2024 8:08 AM EDT) Tacrolimus (LC-MS) 10.4 3.0 - 15.0 ng/mL 10/29/2024 2:07 PM EDT [facility] Comment:Performed via liquid chromatography tandem mass spectrometry. Detection limit: 1 ng/mL. Individual target concentrations may vary due to target organ and time after transplant. This test has been developed and its performance characteristics determined by [facility] which is certified under the [...] EDT 10/29/2024 8:21 AM EDT Priti Geiger [facility] BLOOD ORDERABLES Final Re sult Performing Organization Address City/[facility]/ZIP Co de Phone Number [facility] [address] * Prepare RBC, leukoreduced, 1 Units (10/29/2024 6:16 AM EDT) Product Code H4944K08 [facility] Unit Number [id number] [facility]LL Dispense Status Presumed Transfused_PT HCLL Blood Expiration Date [id number] HCLL Coding System [id number] [facility] Blood Bank Product Shay Plata MD BLOOD BANK PRODUCT O RDERABLES Final Result HCLL * Prepare RBC, leukoreduced, 1 Units (10/29/2024 6:15 AM EDT) Product Code Y6527X69 [facility] Unit Number [id number] [facility]LL Dispense Status Presumed Transfused_PT [facility]LL Blood Expiration Date [id number] HCLL Coding System [id number] [facility] Blood Bank Product Carlos Marks MD BLOOD BANK PRODUCT ORDERABL ES Final Result HCLL * Prepare RBC, leukoreduced, 1 Units (10/29/2024 6:15 AM EDT) Product Code R9084J75 [facility] Unit Number [id number] [facility]LL Dispense Status Presumed Transfused_PT [facility]LL Blood Expiration Date [id number] HCLL Coding System [id number] [facility] Blood Bank Product John Moreno MD BLOOD BANK PRODUCT ORDERABLE S Final Result HCLL * (ABNORMAL) Renal Function Panel w/EGFR (10/29/2024 5:07 AM EDT) Sodium 144 133 - 146 mmol/L 10/29/2024 5:49 AM EDT [facility] Potassium 3.8 3.5 - 5.3 mmol/L 10/29/2024 5:49 AM EDT [facility] Chloride 113(H) 98 - 110 mmol/L 10/29/2024 5:49 AM EDT [facility] CO2 17(L) 21 - 33 mmol/L 10/29/2024 5:49 AM EDT [facility] Anion Gap 14 3 - 16 mmol/L 10/29/2024 5:49 AM EDT [facility] BUN 57(H) 7 - 25 mg/dL 10/29/2024 5:49 AM EDT [facility] Creatinine 1.93(H) 0.60 - 1.30 mg/dL 10/29/2024 5:49 AM EDT [facility] Glucose 110(H) 70 - 100 mg/dL 10/29/2024 5:49 AM EDT [facility] Calcium 9.3 8.6 - 10.3 mg/dL 10/29/2024 5:49 AM EDT [facility] Phosphorus 4.8(H) 2.1 - 4.7 mg/dL 10/29/2024 5:49 AM EDT [facility] Albumin 3.5 3.5 - 5.7 g/dL 10/29/2024 5:49 AM EDT [facility] Osmolality, Calculated 314(H) 278 - 305 mOsm/kg 10/29/2024 5:49 AM EDT [facility] EGFR 44 10/29/2024 5:49 AM EDT [facility] Comment:As [...] 10/29/2024 5:13 AM EDT Beata Dada Horner [facility] LAB BLOOD ORDERABLES Denisse l Result Performing Organization Address City/[facility]/ZIP Co de Phone Number [facility] [address] * Magnesium (10/29/2024 5:07 AM EDT) Magnesium 2.1 1.5 - 2.5 mg/dL 10/29/2024 5:49 AM EDT [facility] Plasma 10/29/2024 5:07 AM EDT 10/29/2024 5:13 AM EDT Stix Gameser Evens [facility] LAB BLOOD ORDERABLES Denisse l Result Performing Organization Address [facility] Co de Phone Number [facility] [address] * (ABNORMAL) Hepatic Function Panel (10/29/2024 5:07 AM EDT) Total Bilirubin 4.2(H) 0.0 - 1.5 mg/dL 10/29/2024 5:49 AM EDT [facility] Bilirubin, Direct 2.85(H) 0.00 - 0.40 mg/dL 10/29/2024 5:49 AM EDT [facility] AST 31 13 - 39 U/L 10/29/2024 5:49 AM EDT [facility] ALT 88(H) 7 - 52 U/L 10/29/2024 5:49 AM EDT [facility] Alkaline Phosphatase 51 36 - 125 U/L 10/29/2024 5:49 AM EDT [facility] Total Protein 5.2(L) 6.4 - 8.9 g/dL 10/29/2024 5:49 AM EDT [facility] Albumin 3.5 3.5 - 5.7 g/dL 10/29/2024 5:49 AM EDT [facility] Bilirubin, Indirect 1.35(H) 0.00 - 1.10 mg/dL 10/29/2024 5:49 AM EDT [facility] Plasma 10/29/2024 5:07 AM EDT 10/29/2024 5:13 AM EDT Beata Horner POST MANAGER LAB BLOOD ORDERABLES Denisse l Result [facility] [address] * (ABNORMAL) CBC (10/29/2024 5:07 AM EDT) WBC 7.8 3.8 - 10.8 10E3/uL 10/29/2024 5:38 AM EDT [facility] RBC 3.05(L) 4.20 - 5.80 10E6/uL 10/29/2024 5:38 AM EDT [facility] Hemoglobin 9.0(L) 13.2 - 17.1 g/dL 10/29/2024 5:38 AM EDT [facility] Hematocrit 26.7(L) 38.5 - 50.0 % 10/29/2024 5:38 AM EDT [facility] MCV 87.4 80.0 - 100.0 fL 10/29/2024 5:38 AM EDT [facility] MCH 29.7 27.0 - 33.0 pg 10/29/2024 5:38 AM EDT [facility] MCHC 33.9 32.0 - 36.0 g/dL 10/29/2024 5:38 AM EDT [facility] RDW 18.3(H) 11.0 - 15.0 % 10/29/2024 5:38 AM EDT [facility] Platelets 41(L) 140 - 400 10E3/uL 10/29/2024 5:38 AM EDT [facility] Comment: CNV Specimen checked for clots. None detected. MPV 7.5 7.5 - 11.5 fL 10/29/2024 5:38 AM EDT [facility] Whole Blood 10/29/2024 5:07 AM EDT 10/29/2024 5:13 AM EDT Beata Horner [facility] LAB BLOOD ORDERABLES Denisse l Result [facility] [address] * (ABNORMAL) TEG-Bypass/ECMO/Liver HN (Factor function, Platelet/Fibrin Clot Strength w/Clot Breakdown, Heparinase In All Channels) (10/29/2024 5:07 AM EDT) Citrated Kaolin Reaction Time (TEGECMOLIVER) 8.9 4.6 - 9.1 minutes 10/29/2024 7:04 AM EDT [facility] Citrated Kaolin W/Heparinase Reaction Time (TEGECMOLIVER) 7.4 4.3 - 8.3 minutes 10/29/2024 7:04 AM EDT [facility] Citrated Kaolin Maximum Amplitude (TEGECMOLIVER) 52.9 52.0 - 69.0 mm 10/29/2024 7:04 AM EDT [facility] Citrated Functional Fibrinogen W/Heparinase Maximum Amplitude(TEGEC MOLIVER) 20.7 15.0 - 34.0 mm 10/29/2024 7:04 AM EDT [facility] Citrated Rapid Teg W/Heparinase Maximum Amplitude (TEGECMOLIVER) 49.7(L) 53.0 - 69.0 mm 10/29/2024 7:04 AM EDT [facility] Citrated Kaolin w/Heparinase Percent Lysis (TEGECMOLIVER) 0.0 0.0 - 3.2 % 10/29/2024 7:04 AM EDT [facility] Whole Blood (Citrate) 10/29/2024 5:07 AM EDT 10/29/2024 5:10 AM EDT us Kemar Sahni MD LAB BLOOD ORDERABLES Final Result [facility] [address] [facility] [place] [address], [facility] * (ABNORMAL) TEG-Bypass/ECMO/Liver HN (Factor function, Platelet/Fibrin Clot Strength w/Clot Breakdown, Heparinase In All Channels) (10/28/2024 11:55 PM EDT) [facility] Citrated Kaolin Reaction Time (TEGECMOLIVER) 8.6 4.6 - 9.1 minutes 10/29/2024 2:01 AM EDT [facility] Citrated Kaolin W/Heparinase Reaction Time (TEGECMOLIVER) 8.7(H) 4.3 - 8.3 minutes 10/29/2024 2:01 AM EDT [facility] Citrated Kaolin Maximum Amplitude (TEGECMOLIVER) 47.9(L) 52.0 - 69.0 mm 10/29/2024 2:01 AM EDT [facility] Citrated Functional Fibrinogen W/Heparinase Maximum Amplitude(TEGEC MOLIVER) 22.0 15.0 - 34.0 mm 10/29/2024 2:01 AM EDT [facility] Citrated Rapid Teg W/Heparinase Maximum Amplitude (TEGECMOLIVER) 45.9(L) 53.0 - 69.0 mm 10/29/2024 2:01 AM EDT [facility] Citrated Kaolin w/Heparinase Percent Lysis (TEGECMOLIVER) 0.0 0.0 - 3.2 % 10/29/2024 2:01 AM EDT [facility] Whole Blood (Citrate) 10/28/2024 11:55 PM EDT 10/28/2024 11:58 PM EDT Kemar Sahni MD LAB BLOOD ORDERABLES Final Result [facility] [address] [place] [address], [facility] * (ABNORMAL) CBC, STAT (10/28/2024 8:04 PM EDT) WBC 3.9 3.8 - 10.8 10E3/uL 10/28/2024 8:36 PM EDT [facility] RBC 2.66(L) 4.20 - 5.80 10E6/uL 10/28/2024 8:36 PM EDT [facility] Hemoglobin 8.0(L) 13.2 - 17.1 g/dL 10/28/2024 8:36 PM EDT [facility] Hematocrit 23.0(L) 38.5 - 50.0 % 10/28/2024 8:36 PM EDT [facility] MCV 86.4 80.0 - 100.0 fL 10/28/2024 8:36 PM EDT [facility] MCH 29.9 27.0 - 33.0 pg 10/28/2024 8:36 PM EDT [facility] MCHC 34.6 32.0 - 36.0 g/dL 10/28/2024 8:36 PM EDT [facility] RDW 18.6(H) 11.0 - 15.0 % 10/28/2024 8:36 PM EDT [facility] Platelets 29(L) 140 - 400 10E3/uL 10/28/2024 8:36 PM EDT [facility] Comment: CNV Specimen checked for clots. None detected. MPV 7.8 7.5 - 11.5 fL 10/28/2024 8:36 PM EDT [facility] Whole Blood 10/28/2024 8:04 PM EDT 10/28/2024 8:14 PM EDT us Carlos Marks MD LAB BLOOD ORDERABLES Final Result [facility] [address] [facility]. [address] * (ABNORMAL) POC Glucose Monitoring Device (10/28/2024 8:03 PM EDT) [facility] POC Glucose Monitoring Device 122(H) 70 - 100 mg/dL 10/28/2024 8:04 PM EDT [facility] Blood 10/28/2024 8:03 PM EDT 10/28/2024 8:04 PM EDT Semaj Mcnair III, MD POINT OF CARE TEST ORDERABLES Final Result Performing Organization Address [facility]/ZIP Co de Phone Number [facility] [address] * (ABNORMAL) TEG-Bypass/ECMO/Liver HN (Factor function, Platelet/Fibrin Clot Strength w/Clot Breakdown, Heparinase In All Channels) (10/28/2024 6:39 PM EDT) Citrated Kaolin Reaction Time (TEGECMOLIVER) 9.0 4.6 - 9.1 minutes 10/28/2024 7:50 PM EDT [facility] Citrated Kaolin W/Heparinase Reaction Time (TEGECMOLIVER) 8.3 4.3 - 8.3 minutes 10/28/2024 7:50 PM EDT [facility] Citrated Kaolin Maximum Amplitude (TEGECMOLIVER) 47.6(L) 52.0 - 69.0 mm 10/28/2024 7:50 PM EDT [facility] Citrated Functional Fibrinogen W/Heparinase Maximum Amplitude(TEGEC MOLIVER) 20.4 15.0 - 34.0 mm 10/28/2024 7:50 PM EDT [facility] Citrated Rapid Teg W/Heparinase Maximum Amplitude (TEGECMOLIVER) 44.0(L) 53.0 - 69.0 mm 10/28/2024 7:50 PM EDT [facility] Citrated Kaolin w/Heparinase Percent Lysis (TEGECMOLIVER) 0.0 0.0 - 3.2 % 10/28/2024 7:50 PM EDT [facility] Whole Blood (Citrate) 10/28/2024 6:39 PM EDT 10/28/2024 6:42 PM EDT us Kemar Sahni MD LAB BLOOD ORDERABLES Final Result Performing Organization Address [facility] Co de Phone Number [facility] [address] [facility]. [address] * (ABNORMAL) POC Glucose Monitoring Device (10/28/2024 5:31 PM EDT) [facility] POC Glucose Monitoring Device 130(H) 70 - 100 mg/dL 10/28/2024 5:31 PM EDT [facility] Blood 10/28/2024 5:31 PM EDT 10/28/2024 5:31 PM EDT us Semaj Mcnair III, MD POINT OF CARE TEST ORDERABLES Final Result Performing Organization Address [facility] Co de Phone Number [facility] [address] [facility]. [address] * Transfuse RBC Transfusion Rate: Per dept routine (10/28/2024 5:23 PM EDT) us Shay Plata MD NURSING TREATMENT OR DERABLES - BLOOD ADMIN Final Result Performing Organization Address [facility] Co de Phone Number EXTERNAL * Transfuse RBC Transfusion Rate: Per dept routine, 1 Units (10/28/2024 5:23 PM EDT) us Shay Plata MD NURSING TREATMENT OR DERABLES - BLOOD ADMIN Final Result Performing Organization Address [facility] Co de Phone Number EXTERNAL [...] EXAM: US ABDOMEN LIMITED EXAM: US DUPLEX [id number] COMPLETE INDICATION: Post-op liver transplant DATE: 10/28/2024 [...] retrohepatic inferior vena cava is patent. The iqugmiut right kidney is partially visualized. A prominent [...] EXAM: US ABDOMEN LIMITED EXAM: US DUPLEX [id number] COMPLETE INDICATION: Post-op liver transplant DATE: 10/28/2024 [...] retrohepatic inferior vena cava is patent. The iqugmiut right kidney is partially visualized. A prominent [...] 10/28/2024 4:42 PM EDT Shay Plata MD [facility] US ORDERABLES Fi nal Result * US Duplex Ole-Hoh-Xotvgyj Comp (10/28/2024 4:23 PM EDT) Anatomical Region [...] EXAM: US ABDOMEN LIMITED EXAM: US DUPLEX [id number] COMPLETE INDICATION: Post-op liver transplant DATE: 10/28/2024 [...] retrohepatic inferior vena cava is patent. The iqugmiut right kidney is partially visualized. A prominent [...] EXAM: US ABDOMEN LIMITED EXAM: US DUPLEX [id number] COMPLETE INDICATION: Post-op liver transplant DATE: 10/28/2024 [...] retrohepatic inferior vena cava is patent. The iqugmiut right kidney is partially visualized. A prominent [...] - 10.8 10E3/uL 10/28/2024 3:07 PM EDT [facility] RBC 2.44(L) 4.20 - 5.80 10E6/uL 10/28/2024 3:07 PM EDT [facility] Hemoglobin 7.5(L) 13.2 - 17.1 g/dL 10/28/2024 3:07 PM EDT [facility] Hematocrit 21.4(L) 38.5 - 50.0 % 10/28/2024 3:07 PM EDT [facility] MCV 87.6 80.0 - 100.0 fL 10/28/2024 3:07 PM EDT [facility] MCH 30.6 27.0 - 33.0 pg 10/28/2024 3:07 PM EDT [facility] MCHC 34.9 32.0 - 36.0 g/dL 10/28/2024 3:07 PM EDT [facility] RDW 18.4(H) 11.0 - 15.0 % 10/28/2024 3:07 PM EDT [facility] Platelets 30(L) 140 - 400 10E3/uL 10/28/2024 3:07 PM EDT [facility] Comment: CNV Specimen checked for clots. None detected. MPV 7.7 7.5 - 11.5 fL 10/28/2024 3:07 PM EDT [facility] Whole Blood 10/28/2024 2:49 PM EDT 10/28/2024 2:53 PM EDT us Carlos Marks MD LAB BLOOD ORDERABLES Final Result [facility] [address] * ECG 12 lead (MUSE) (10/28/2024 1:22 PM EDT) 10/28/2024 1:22 PM EDT Narrative MUSE - 10/29/2024 10:34 PM EDT Ventricular Rate: 104 BPM Atrial Rate: 104 BPM P-R Interval: 172 ms QRS Duration: 90 ms QT: 354 ms QTc: 465 ms P [place]: 58 degrees R [place]: -19 degrees T [place]: 38 degrees Diagnosis Line: SINUS TACHYCARDIA ^ OTHERWISE NORMAL ECG ^ ^ Confirmed by JORGE MACIAS ([id number]) on 10/29/2024 10:34:22 PM us Hillary Fernandes PharmD ECG ORDERABLES Final Res ult Performing Organization Address City/[facility]/ZIP Co de Phone Number MUSE * (ABNORMAL) POC Glucose Monitoring Device (10/28/2024 12:54 PM EDT) POC Glucose Monitoring Device 119(H) 70 - 100 mg/dL 10/28/2024 12:55 PM EDT [facility] Blood 10/28/2024 12:5 4 PM EDT 10/28/2024 12:55 PM EDT us Semaj Mcnair III, MD POINT OF CARE TEST ORDERABLES Final Result Performing Organization Address City/[facility]/ZIP Co de Phone Number [facility] [address] [facility]. [address] * Transfuse RBC Transfusion Rate: Per [...] - 15.1 seconds 10/28/2024 11:29 AM EDT [facility] INR 1.1 0.9 - 1.1 10/28/2024 11:29 AM EDT [facility] Comment: RECOMMENDED THERAPEUTIC RANGES USING INR : Stable oral anticoagulant therapy: 2.0 - 3.0 Mechanical prosthetic heart valve: 2.5 - 3.5 Recurrent acute myocardial infarction: 2.5 - 3.5 Plasma 10/28/2024 11:0 9 AM EDT 10/28/2024 11:16 AM EDT us Carlos Marks MD LAB BLOOD ORDERABLES Final Result Performing Organization Address City/[facility] Co de Phone Number [facility] [address] * (ABNORMAL) Lactic Acid, STAT (10/28/2024 11:09 AM EDT) Lactate 0.3(L) 0.5 - 2.2 mmol/L 10/28/2024 11:37 AM EDT [facility] Plasma 10/28/2024 11:0 9 AM EDT 10/28/2024 11:15 AM EDT us Carlos Marks MD LAB BLOOD ORDERABLES Final Result [facility] [address] * Magnesium, STAT (10/28/2024 11:09 AM EDT) Magnesium 2.1 1.5 - 2.5 mg/dL 10/28/2024 11:47 AM EDT [facility] Plasma 10/28/2024 11:0 9 AM EDT 10/28/2024 11:16 AM EDT us Carlos Marks MD LAB BLOOD ORDERABLES Final Result [facility] [address] [place] [address], [facility] * (ABNORMAL) Renal Function Panel w/EGFR, STAT (10/28/2024 11:09 AM EDT) Sodium 144 133 - 146 mmol/L 10/28/2024 11:47 AM EDT [facility] Potassium 3.4(L) 3.5 - 5.3 mmol/L 10/28/2024 11:47 AM EDT [facility] Chloride 112(H) 98 - 110 mmol/L 10/28/2024 11:47 AM EDT [facility] CO2 22 21 - 33 mmol/L 10/28/2024 11:47 AM EDT [facility] Anion Gap 10 3 - 16 mmol/L 10/28/2024 11:47 AM EDT [facility] BUN 57(H) 7 - 25 mg/dL 10/28/2024 11:47 AM EDT [facility] Creatinine 2.01(H) 0.60 - 1.30 mg/dL 10/28/2024 11:47 AM EDT [facility] Glucose 108(H) 70 - 100 mg/dL 10/28/2024 11:47 AM EDT [facility] Calcium 8.8 8.6 - 10.3 mg/dL 10/28/2024 11:47 AM EDT [facility] Phosphorus 4.0 2.1 - 4.7 mg/dL 10/28/2024 11:47 AM EDT [facility] Albumin 3.3(L) 3.5 - 5.7 g/dL 10/28/2024 11:47 AM EDT [facility] Osmolality, Calculated 314(H) 278 - 305 mOsm/kg 10/28/2024 11:47 AM EDT [facility] EGFR 42 10/28/2024 11:47 AM EDT [facility] Comment:As [...] Marks MD LAB BLOOD ORDERABLES Final Result [facility] [address] [place] [address], [facility] * (ABNORMAL) TEG-Bypass/ECMO/Liver HN (Factor function, Platelet/Fibrin Clot Strength w/Clot Breakdown, Heparinase In All Channels) (10/28/2024 11:09 AM EDT) Citrated Kaolin Reaction Time (TEGECMOLIVER) 9.2(H) 4.6 - 9.1 minutes 10/28/2024 12:30 PM EDT [facility] Citrated Kaolin W/Heparinase Reaction Time (TEGECMOLIVER) 9.6(H) 4.3 - 8.3 minutes 10/28/2024 12:30 PM EDT [facility] Citrated Kaolin Maximum Amplitude (TEGECMOLIVER) 51.2(L) 52.0 - 69.0 mm 10/28/2024 12:30 PM EDT [facility] Citrated Functional Fibrinogen W/Heparinase Maximum Amplitude(TEGEC MOLIVER) 21.6 15.0 - 34.0 mm 10/28/2024 12:30 PM EDT [facility] Citrated Rapid Teg W/Heparinase Maximum Amplitude (TEGECMOLIVER) 49.3(L) 53.0 - 69.0 mm 10/28/2024 12:30 PM EDT [facility] Citrated Kaolin w/Heparinase Percent Lysis (TEGECMOLIVER) 0.0 0.0 - 3.2 % 10/28/2024 12:30 PM EDT [facility] Whole Blood (Citrate) 10/28/2024 11:09 AM EDT 10/28/2024 11:14 AM EDT Kemar Sahni MD LAB BLOOD ORDERABLES Final Result Performing Organization Address City/State/[facility] Co de Phone Number [facility] [address] [id number] * (ABNORMAL) CBC (10/28/2024 10:21 AM EDT) WBC 4.1 3.8 - 10.8 10E3/uL 10/28/2024 10:41 AM EDT [facility] RBC 2.30(L) 4.20 - 5.80 10E6/uL 10/28/2024 10:41 AM EDT [facility] Hemoglobin 7.1(L) 13.2 - 17.1 g/dL 10/28/2024 10:41 AM EDT [facility] Hematocrit 20.4(L) 38.5 - 50.0 % 10/28/2024 10:41 AM EDT [facility] MCV 88.5 80.0 - 100.0 fL 10/28/2024 10:41 AM EDT [facility] MCH 30.7 27.0 - 33.0 pg 10/28/2024 10:41 AM EDT [facility] MCHC 34.7 32.0 - 36.0 g/dL 10/28/2024 10:41 AM EDT [facility] RDW 18.7(H) 11.0 - 15.0 % 10/28/2024 10:41 AM EDT [facility] Platelets 37(L) 140 - 400 10E3/uL 10/28/2024 10:41 AM EDT [facility] Comment: CNV Specimen checked for clots. None detected. MPV 7.6 7.5 - 11.5 fL 10/28/2024 10:41 AM EDT [facility] Whole Blood 10/28/2024 10:2 1 AM EDT 10/28/2024 10:29 AM EDT Carlos Marks MD LAB BLOOD ORDERABLES Final Result Performing Organization Address City/[facility]/ZIP Co de Phone Number [facility] [address] * POC Glucose Monitoring Device (10/28/2024 9:07 AM EDT) POC Glucose Monitoring Device 97 70 - 100 mg/dL 10/28/2024 9:08 AM EDT [facility] Blood 10/28/2024 9:07 AM EDT 10/28/2024 9:08 AM EDT Semaj Mcnair III, MD POINT OF CARE TEST ORDERABLES Final Result Performing Organization Address [facility] de Phone Number [facility] [address] [place] [address]. [address] * (ABNORMAL) Tacrolimus level (10/28/2024 8:20 AM EDT) Tacrolimus (LC-MS) <1.0(L) 3.0 - 15.0 ng/mL 10/28/2024 2:02 PM EDT [facility] Comment:Performed via liquid chromatography tandem mass spectrometry. Detection limit: 1 ng/mL. Individual target concentrations may vary due to target organ and time after transplant. This test has been developed and its performance characteristics determined by [facility] which is certified under the [...] Re sult Performing Organization Address [facility] Co de Phone Number [facility] [address] * (ABNORMAL) POC Glucose Monitoring Device (10/28/2024 8:10 AM EDT) POC Glucose Monitoring Device 102(H) 70 - 100 mg/dL 10/28/2024 8:11 AM EDT [facility] Blood 10/28/2024 8:10 AM EDT 10/28/2024 8:11 AM EDT Semaj Mcnair III, MD POINT OF CARE TEST ORDERABLES Final Result Performing Organization Address [facility] Co de Phone Number [facility] [address] [place], [place] [id number] [facility]. [address] * POC Glucose Monitoring Device (10/28/2024 6:17 AM EDT) POC Glucose Monitoring Device 100 70 - 100 mg/dL 10/28/2024 6:18 AM EDT [facility] Blood 10/28/2024 6:17 AM EDT 10/28/2024 6:18 AM EDT Semaj Mcnair III, MD POINT OF CARE TEST ORDERABLES Final Result Performing Organization Address [facility] Co de Phone Number [facility] [address] [place] [address]. [address] * Prepare Platelets, leukoreduced (10/28/2024 6:15 AM EDT) Product Code N9352Z65 HCLL Unit Number [id number] HCLL Dispense Status Presumed Transfused_PT HCLL Blood Expiration Date HCLL Coding System [id number] HCLL Product Code N3363G09 HCLL Unit Number [id number] HCLL Dispense Status Presumed Transfused_PT HCLL Blood Expiration Date HCLL Coding System [id number] HCLL us Attending Provider Unknown BLOOD BANK PRODUCT OR DERABLES Final Result Performing Organization Address City/[facility] Co de Phone Number HCLL * Prepare Fresh Frozen Plasma (10/28/2024 6:15 AM EDT) Product Code Q3361L97 HCLL Unit Number [id number] HCLL Dispense Status Released from Crossmatch_RE HCLL Blood Expiration Date [id number] HCLL Coding System QHIW801 HCLL Product Code I2978G61 HCLL Unit Number [id number] HCLL Dispense Status Presumed Transfused_PT HCLL Blood Expiration Date HCLL Coding System RIVF572 HCLL Product Code S9207S80 HCLL Unit Number [id number] HCLL Dispense Status Released from Crossmatch_RE HCLL Blood Expiration Date HCLL Coding System OKDI418 HCLL Product Code U3426K64 HCLL Unit Number [id number] HCLL Dispense Status Presumed Transfused_PT HCLL Blood Expiration Date HCLL Coding System ONKA584 HCLL Product Code F3311V95 HCLL Unit Number [id number] HCLL Dispense Status Released from Crossmatch_RE HCLL Blood Expiration Date 070319896019 HCLL Coding System [id number] HCLL Attending Provider Unknown BLOOD BANK PRODUCT OR DERABLES Final Result Performing Organization Address [facility] Co de Phone Number HCLL * Prepare RBC, leukoreduced (10/28/2024 6:15 AM EDT) Product Code J2214T08 HCLL Unit Number [id number] HCLL Dispense Status Released from Crossmatch_RE HCLL Blood Expiration Date [id number] HCLL Coding System GRTD082 HCLL Product Code I2012D09 HCLL Unit Number [id number] HCLL Dispense Status Presumed Transfused_PT HCLL Blood Expiration Date 767039182025 HCLL Coding System XBMO026 HCLL Product Code A9210C75 HCLL Unit Number [id number] HCLL Dispense Status Released from Crossmatch_RE HCLL Blood Expiration Date 035423414343 HCLL Coding System KNEN025 HCLL Product Code Q9706X23 HCLL Unit Number [id number] HCLL Dispense Status Presumed Transfused_PT HCLL Blood Expiration Date 945964692089 HCLL Coding System GVCH808 HCLL Product Code C1740S14 HCLL Unit Number [id number] HCLL Dispense Status Released from Crossmatch_RE HCLL Blood Expiration Date 783096672901 HCLL Coding System [id number] HCLL Attending Provider Unknown BLOOD BANK PRODUCT OR DERABLES Final Result Performing Organization Address [facility]/ZIP Co de Phone Number HCLL * Prepare Platelets, leukoreduced, 1 Units (10/28/2024 6:15 AM EDT) Product Code Z2506N06 HCLL Unit Number [id number] HCLL Dispense Status Presumed Transfused_PT HCLL Blood Expiration Date 070181292436 HCLL Coding System [id number] HCLL Blood Bank Product John Pina MD BLOOD BANK PRODUCT ORDERABLES F inal Result Performing Organization Address [facility] Co de Phone Number HCLL * Prepare Cryoprecipitate, 1 Units (10/28/2024 6:15 AM EDT) Product Code P5643A93 HCLL Unit Number [id number] HCLL Dispense Status Presumed Transfused_PT HCLL Blood Expiration Date HCLL Coding System SZOK863 HCLL Product Code P7088S90 HCLL Unit Number [id number] HCLL Dispense Status Presumed Transfused_PT HCLL Blood Expiration Date HCLL Coding System HIQS085 HCLL Blood Bank Product John Pina MD BLOOD BANK PRODUCT ORDERABLES F inal Result Performing Organization Address [facility] Co de Phone Number HCLL * Prepare Fresh Frozen Plasma, 1 Units (10/28/2024 6:15 AM EDT) Product Code A2167I01 HCLL Unit Number [id number] HCLL Dispense Status Presumed Transfused_PT HCLL Blood Expiration Date 905603967297 HCLL Coding System YMYF957 HCLL Blood Bank Product John Pina MD BLOOD BANK PRODUCT ORDERABLES F inal Result Performing Organization Address [facility] de Phone Number HCLL * Prepare Cryoprecipitate, 1 Units (10/28/2024 6:15 AM EDT) Product Code K6700W90 HCLL Unit Number [id number] HCLL Dispense Status Presumed Transfused_PT HCLL Blood Expiration Date HCLL Coding System BXEH811 HCLL Product Code L4196J79 HCLL Unit Number [id number] HCLL Dispense Status Presumed Transfused_PT HCLL Blood Expiration Date 862635481335 HCLL Coding System SGFJ649 HCLL Product Code J3344L45 HCLL Unit Number [id number] HCLL Dispense Status Presumed Transfused_PT HCLL Blood Expiration Date 910076686150 HCLL Coding System OHSL118 HCLL Product Code F4640Z24 HCLL Unit Number [id number] HCLL Dispense Status Presumed Transfused_PT HCLL Blood Expiration Date 954191301210 HCLL Coding System ENJH265 HCLL Blood Bank Product John Pina MD BLOOD BANK PRODUCT ORDERABLES F inal Result Performing Organization Address City/[facility] Co de Phone Number HCLL * (ABNORMAL) POC Glucose Monitoring Device (10/28/2024 4:55 AM EDT) POC Glucose Monitoring Device 104(H) 70 - 100 mg/dL 10/28/2024 4:57 AM EDT [facility] Blood 10/28/2024 4:55 AM EDT 10/28/2024 4:57 AM EDT Semaj Mcnair III, MD POINT OF CARE TEST ORDERABLES Final Result [facility] [address] [facility]. [address] * TEG-Bypass/ECMO/Liver HN (Factor function, Platelet/Fibrin Clot Strength w/Clot Breakdown, Heparinase In All Channels) (10/28/2024 4:13 AM EDT) [facility] Citrated Kaolin Reaction Time (TEGECMOLIVER) 7.2 4.6 - 9.1 minutes 10/28/2024 5:38 AM EDT [facility] Citrated Kaolin W/Heparinase Reaction Time (TEGECMOLIVER) 7.8 4.3 - 8.3 minutes 10/28/2024 5:38 AM EDT [facility] Citrated Kaolin Maximum Amplitude (TEGECMOLIVER) 53.0 52.0 - 69.0 mm 10/28/2024 5:38 AM EDT [facility] Citrated Functional Fibrinogen W/Heparinase Maximum Amplitude(TEGEC MOLIVER) 21.4 15.0 - 34.0 mm 10/28/2024 5:38 AM EDT [facility] Citrated Rapid Teg W/Heparinase Maximum Amplitude (TEGECMOLIVER) 54.7 53.0 - 69.0 mm 10/28/2024 5:38 AM EDT [facility] Citrated Kaolin w/Heparinase Percent Lysis (TEGECMOLIVER) 0.0 0.0 - 3.2 % 10/28/2024 5:38 AM EDT [facility] Whole Blood (Citrate) 10/28/2024 4:13 AM EDT 10/28/2024 4:28 AM EDT Kemar Sahni MD LAB BLOOD ORDERABLES Final Result [facility] [address] [facility]. [address] * Protime-INR (10/28/2024 4:13 AM EDT) Pathologist [facility] Protime 14.6 12.1 - 15.1 seconds 10/28/2024 4:53 AM EDT [facility] INR 1.1 0.9 - 1.1 10/28/2024 4:53 AM EDT [facility] Comment: RECOMMENDED THERAPEUTIC RANGES USING INR : Stable oral anticoagulant therapy: 2.0 - 3.0 Mechanical prosthetic heart valve: 2.5 - 3.5 Recurrent acute myocardial infarction: 2.5 - 3.5 Plasma 10/28/2024 4:13 AM EDT 10/28/2024 4:41 AM EDT Kemar Sahni MD LAB BLOOD ORDERABLES Final Result Performing Organization Address City/[facility]/ZIP Co de Phone Number [facility] [address] [facility]. [address] * Magnesium (10/28/2024 4:13 AM EDT) Pathologist [facility] Magnesium 2.2 1.5 - 2.5 mg/dL 10/28/2024 5:15 AM EDT [facility] Plasma 10/28/2024 4:13 AM EDT 10/28/2024 4:41 AM EDT Kemar Sahni MD LAB BLOOD ORDERABLES Final Result [facility] [address] [facility]. [address] * (ABNORMAL) Hepatic Function Panel (10/28/2024 4:13 AM EDT) Pathologist [facility] Total Bilirubin 2.3(H) 0.0 - 1.5 mg/dL 10/28/2024 5:15 AM EDT [facility] Bilirubin, Direct 1.67(H) 0.00 - 0.40 mg/dL 10/28/2024 5:15 AM EDT [facility] AST 44(H) 13 - 39 U/L 10/28/2024 5:15 AM EDT [facility] ALT 101(H) 7 - 52 U/L 10/28/2024 5:15 AM EDT [facility] Alkaline Phosphatase 26(L) 36 - 125 U/L 10/28/2024 5:15 AM EDT [facility] Total Protein 4.5(L) 6.4 - 8.9 g/dL 10/28/2024 5:15 AM EDT [facility] Albumin 3.1(L) 3.5 - 5.7 g/dL 10/28/2024 5:15 AM EDT [facility] Bilirubin, Indirect 0.63 0.00 - 1.10 mg/dL 10/28/2024 5:15 AM EDT [facility] Plasma 10/28/2024 4:13 AM EDT 10/28/2024 4:41 AM EDT Kemar Sahni MD LAB BLOOD ORDERABLES Final Result Performing Organization Address City/State/[facility] Co de Phone Number [facility] [address] * (ABNORMAL) Renal Function Panel w/EGFR (10/28/2024 4:13 AM EDT) Sodium 142 133 - 146 mmol/L 10/28/2024 5:15 AM EDT [facility] Potassium 3.5 3.5 - 5.3 mmol/L 10/28/2024 5:15 AM EDT [facility] Chloride 111(H) 98 - 110 mmol/L 10/28/2024 5:15 AM EDT [facility] CO2 22 21 - 33 mmol/L 10/28/2024 5:15 AM EDT [facility] Anion Gap 9 3 - 16 mmol/L 10/28/2024 5:15 AM EDT [facility] BUN 58(H) 7 - 25 mg/dL 10/28/2024 5:15 AM EDT [facility] Creatinine 2.24(H) 0.60 - 1.30 mg/dL 10/28/2024 5:15 AM EDT [facility] Glucose 103(H) 70 - 100 mg/dL 10/28/2024 5:15 AM EDT [facility] Calcium 9.1 8.6 - 10.3 mg/dL 10/28/2024 5:15 AM EDT [facility] Phosphorus 4.8(H) 2.1 - 4.7 mg/dL 10/28/2024 5:15 AM EDT [facility] Albumin 3.1(L) 3.5 - 5.7 g/dL 10/28/2024 5:15 AM EDT [facility] Osmolality, Calculated 310(H) 278 - 305 mOsm/kg 10/28/2024 5:15 AM EDT [facility] EGFR 37 10/28/2024 5:15 AM EDT [facility] Comment:As [...] Sahni MD LAB BLOOD ORDERABLES Final Result [facility] [address] [place] [address], [facility] * (ABNORMAL) CBC (10/28/2024 4:13 AM EDT) WBC 4.5 3.8 - 10.8 10E3/uL 10/28/2024 5:09 AM EDT [facility] RBC 2.39(L) 4.20 - 5.80 10E6/uL 10/28/2024 5:09 AM EDT [facility] Hemoglobin 7.3(L) 13.2 - 17.1 g/dL 10/28/2024 5:09 AM EDT [facility] Hematocrit 21.0(L) 38.5 - 50.0 % 10/28/2024 5:09 AM EDT [facility] MCV 87.8 80.0 - 100.0 fL 10/28/2024 5:09 AM EDT [facility] MCH 30.5 27.0 - 33.0 pg 10/28/2024 5:09 AM EDT [facility] MCHC 34.7 32.0 - 36.0 g/dL 10/28/2024 5:09 AM EDT [facility] RDW 18.7(H) 11.0 - 15.0 % 10/28/2024 5:09 AM EDT [facility] Platelets 38(L) 140 - 400 10E3/uL 10/28/2024 5:09 AM EDT [facility] Comment: CNV Specimen checked for clots. None detected. MPV 7.6 7.5 - 11.5 fL 10/28/2024 5:09 AM EDT [facility] Whole Blood 10/28/2024 4:13 AM EDT 10/28/2024 4:41 AM EDT us Kemar Sahni MD LAB BLOOD ORDERABLES Final Result [facility] [address] * (ABNORMAL) POC Glucose Monitoring Device (10/28/2024 4:04 AM EDT) POC Glucose Monitoring Device 103(H) 70 - 100 mg/dL 10/28/2024 4:05 AM EDT [facility] Blood 10/28/2024 4:04 AM EDT 10/28/2024 4:05 AM EDT us Semaj Mcnair III, MD POINT OF CARE TEST ORDERABLES Final Result [facility] [address] * (ABNORMAL) POC Glucose Monitoring Device (10/28/2024 3:00 AM EDT) POC Glucose Monitoring Device 106(H) 70 - 100 mg/dL 10/28/2024 3:01 AM EDT [facility] Blood 10/28/2024 3:00 AM EDT 10/28/2024 3:01 AM EDT us Semaj Mcnair III, MD POINT OF CARE TEST ORDERABLES Final Result Performing Organization Address [facility] Co de Phone Number [facility] [address] * (ABNORMAL) POC Glucose Monitoring Device (10/28/2024 2:32 AM EDT) POC Glucose Monitoring Device 109(H) 70 - 100 mg/dL 10/28/2024 2:33 AM EDT [facility] Blood 10/28/2024 2:32 AM EDT 10/28/2024 2:33 AM EDT us Semaj Mcnair III, MD POINT OF CARE TEST ORDERABLES Final Result Performing Organization Address [facility] Co de Phone Number [facility] [address] [facility]. [address] * (ABNORMAL) POC Glucose Monitoring Device (10/28/2024 2:14 AM EDT) POC Glucose Monitoring Device 115(H) 70 - 100 mg/dL 10/28/2024 2:15 AM EDT [facility] Blood 10/28/2024 2:14 AM EDT 10/28/2024 2:15 AM EDT us Semaj Mcnair III, MD POINT OF CARE TEST ORDERABLES Final Result Performing Organization Address City/[facility]/ZIP Co de Phone Number [facility] [address] * (ABNORMAL) POC Glucose Monitoring Device (10/28/2024 2:03 AM EDT) POC Glucose Monitoring Device 101(H) 70 - 100 mg/dL 10/28/2024 2:04 AM EDT [facility] Blood 10/28/2024 2:03 AM EDT 10/28/2024 2:04 AM EDT Semaj Mcnair III, MD POINT OF CARE TEST ORDERABLES Final Result Performing Organization Address [facility] Co de Phone Number [facility] [address] * Transfuse RBC Transfusion Rate: Per dept routine (10/28/2024 1:51 AM EDT) John Moreno MD NURSING TREATMENT ORDERABLES - BLOOD ADMIN Final Result Performing Organization Address City/[facility]/ZIP Co de Phone Number EXTERNAL * Transfuse RBC Transfusion Rate: Per dept routine, 1 Units (10/28/2024 1:51 AM EDT) John Moreno MD NURSING TREATMENT ORDERABLES - BLOOD ADMIN Final Result Performing Organization Address [facility] Co de Phone Number EXTERNAL * (ABNORMAL) TEG-Bypass/ECMO/Liver HN (Factor function, Platelet/Fibrin Clot Strength w/Clot Breakdown, Heparinase In All Channels) (10/28/2024 12:05 AM EDT) Citrated Kaolin Reaction Time (TEGECMOLIVER) 7.5 4.6 - 9.1 minutes 10/28/2024 1:22 AM EDT [facility] Citrated Kaolin W/Heparinase Reaction Time (TEGECMOLIVER) 7.7 4.3 - 8.3 minutes 10/28/2024 1:22 AM EDT [facility] Citrated Kaolin Maximum Amplitude (TEGECMOLIVER) 54.4 52.0 - 69.0 mm 10/28/2024 1:22 AM EDT [facility] Citrated Functional Fibrinogen W/Heparinase Maximum Amplitude(TEGEC MOLIVER) 20.4 15.0 - 34.0 mm 10/28/2024 1:22 AM EDT [facility] Citrated Rapid Teg W/Heparinase Maximum Amplitude (TEGECMOLIVER) 51.0(L) 53.0 - 69.0 mm 10/28/2024 1:22 AM EDT [facility] Citrated Kaolin w/Heparinase Percent Lysis (TEGECMOLIVER) 0.0 0.0 - 3.2 % 10/28/2024 1:22 AM EDT [facility] Whole Blood (Citrate) 10/28/2024 12:05 AM EDT 10/28/2024 12:09 AM EDT Kemar Sahni MD LAB BLOOD ORDERABLES Final Result Performing Organization Address City/[facility]/ZIP Co de Phone Number [facility] [address] * Magnesium (10/28/2024 12:05 AM EDT) Magnesium 2.2 1.5 - 2.5 mg/dL 10/28/2024 1:59 AM EDT [facility] Plasma 10/28/2024 12:0 5 AM EDT 10/28/2024 12:11 AM EDT Kemar Sahni MD LAB BLOOD ORDERABLES Final Result [facility] [address] * (ABNORMAL) Renal Function Panel w/EGFR (10/28/2024 12:05 AM EDT) Sodium 144 133 - 146 mmol/L 10/28/2024 1:59 AM EDT [facility] Potassium 3.4(L) 3.5 - 5.3 mmol/L 10/28/2024 1:59 AM EDT [facility] Chloride 112(H) 98 - 110 mmol/L 10/28/2024 1:59 AM EDT [facility] CO2 19(L) 21 - 33 mmol/L 10/28/2024 1:59 AM EDT [facility] Anion Gap 13 3 - 16 mmol/L 10/28/2024 1:59 AM EDT [facility] BUN 59(H) 7 - 25 mg/dL 10/28/2024 1:59 AM EDT [facility] Creatinine 2.42(H) 0.60 - 1.30 mg/dL 10/28/2024 1:59 AM EDT [facility] Glucose 118(H) 70 - 100 mg/dL 10/28/2024 1:59 AM EDT [facility] Calcium 9.0 8.6 - 10.3 mg/dL 10/28/2024 1:59 AM EDT [facility] Phosphorus 5.3(H) 2.1 - 4.7 mg/dL 10/28/2024 1:59 AM EDT [facility] Albumin 3.1(L) 3.5 - 5.7 g/dL 10/28/2024 1:59 AM EDT [facility] Osmolality, Calculated 316(H) 278 - 305 mOsm/kg 10/28/2024 1:59 AM EDT [facility] EGFR 34 10/28/2024 1:59 AM EDT [facility] Comment:As [...] Sahni MD LAB BLOOD ORDERABLES Final Result [facility] [facility] [address] [facility]. [address] * (ABNORMAL) Differential (10/28/2024 12:05 AM EDT) Neutrophils Relative 88.6(H) 40.0 - 80.0 % 10/28/2024 12:41 AM EDT [facility] Lymphocytes Relative 2.5(L) 15.0 - 45.0 % 10/28/2024 12:41 AM EDT [facility] Monocytes Relative 6.1 0.0 - 12.0 % 10/28/2024 12:41 AM EDT [facility] Eosinophils Relative 2.4 0.0 - 8.0 % 10/28/2024 12:41 AM EDT [facility] Basophils Relative 0.4 0.0 - 1.0 % 10/28/2024 12:41 AM EDT [facility] nRBC 0 0 - 0 /100 WBC 10/28/2024 12:41 AM EDT [facility] Neutrophils Absolute 4,341 1,520 - 8,640 /uL 10/28/2024 12:41 AM EDT [facility] Lymphocytes Absolute 123(L) 570 - 4,860 /uL 10/28/2024 12:41 AM EDT [facility] Monocytes Absolute 299 0 - 1,296 /uL 10/28/2024 12:41 AM EDT [facility] Eosinophils Absolute 118 0 - 864 /uL 10/28/2024 12:41 AM EDT [facility] Basophils Absolute 20 0 - 108 /uL 10/28/2024 12:41 AM EDT [facility] Whole Blood 10/28/2024 12:0 5 AM EDT 10/28/2024 12:11 AM EDT us Kemar Sahni MD LAB BLOOD ORDERABLES Final Result [facility] [address] * (ABNORMAL) CBC (10/28/2024 12:05 AM EDT) WBC 4.9 3.8 - 10.8 10E3/uL 10/28/2024 12:41 AM EDT [facility] RBC 2.18(L) 4.20 - 5.80 10E6/uL 10/28/2024 12:41 AM EDT [facility] Hemoglobin 6.7(L) 13.2 - 17.1 g/dL 10/28/2024 12:41 AM EDT [facility] Hematocrit 19.2(L) 38.5 - 50.0 % 10/28/2024 12:41 AM EDT [facility] MCV 87.8 80.0 - 100.0 fL 10/28/2024 12:41 AM EDT [facility] MCH 30.6 27.0 - 33.0 pg 10/28/2024 12:41 AM EDT [facility] MCHC 34.8 32.0 - 36.0 g/dL 10/28/2024 12:41 AM EDT [facility] RDW 19.6(H) 11.0 - 15.0 % 10/28/2024 12:41 AM EDT [facility] Platelets 45(L) 140 - 400 10E3/uL 10/28/2024 12:41 AM EDT [facility] Comment: CNV Specimen checked for clots. None detected. MPV 7.8 7.5 - 11.5 fL 10/28/2024 12:41 AM EDT [facility] Whole Blood 10/28/2024 12:0 5 AM EDT 10/28/2024 12:11 AM EDT Kemar Sahni MD LAB BLOOD ORDERABLES Final Result [facility] [address] [place] [address], [facility] * (ABNORMAL) POC Glucose Monitoring Device (10/28/2024 12:03 AM EDT) POC Glucose Monitoring Device 122(H) 70 - 100 mg/dL 10/28/2024 12:04 AM EDT [facility] Blood 10/28/2024 12:0 3 AM EDT 10/28/2024 12:04 AM EDT us Semaj Mcnair III, MD POINT OF CARE TEST ORDERABLES Final Result Performing Organization Address City/[facility]/ZIP Co de Phone Number [facility] [address]. [address] * (ABNORMAL) POC Glucose Monitoring Device (10/27/2024 10:03 PM EDT) POC Glucose Monitoring Device 127(H) 70 - 100 mg/dL 10/27/2024 10:03 PM EDT [facility] Blood 10/27/2024 10:0 3 PM EDT 10/27/2024 10:03 PM EDT us Semaj Mcnair III, MD POINT OF CARE TEST ORDERABLES Final Result Performing Organization Address [facility] Co de Phone Number [address] * (ABNORMAL) POC Glucose Monitoring Device (10/27/2024 8:06 PM EDT) POC Glucose Monitoring Device 128(H) 70 - 100 mg/dL 10/27/2024 8:45 PM EDT [facility] Blood 10/27/2024 8:06 PM EDT 10/27/2024 8:45 PM EDT us Semaj Mcnair III, MD POINT OF CARE TEST ORDERABLES Final Result [address] [facility]. [address] * (ABNORMAL) POC Glucose Monitoring Device (10/27/2024 6:00 PM EDT) POC Glucose Monitoring Device 128(H) 70 - 100 mg/dL 10/27/2024 6:00 PM EDT [facility] Blood 10/27/2024 6:00 PM EDT 10/27/2024 6:00 PM EDT Semaj Mcnair III, MD POINT OF CARE TEST ORDERABLES Final Result Performing Organization Address City/[facility]/ZIP Co de Phone Number [facility] [address] * Lactic Acid, STAT (10/27/2024 5:41 PM EDT) Lactate 0.5 0.5 - 2.2 mmol/L 10/27/2024 6:28 PM EDT [facility] Plasma 10/27/2024 5:41 PM EDT 10/27/2024 5:49 PM EDT Narrative [facility] - 10/27/2024 6:28 PM EDT Redraw John Moreno MD LAB BLOOD ORDERABLES Final R esult Performing Organization Address [facility] Co de Phone Number [facility] [address] * (ABNORMAL) Hepatic Function Panel, STAT (10/27/2024 5:13 PM EDT) Total Bilirubin 1.7(H) 0.0 - 1.5 mg/dL 10/27/2024 5:50 PM EDT [facility] Bilirubin, Direct 1.17(H) 0.00 - 0.40 mg/dL 10/27/2024 5:50 PM EDT [facility] AST 60(H) 13 - 39 U/L 10/27/2024 5:50 PM EDT [facility] ALT 134(H) 7 - 52 U/L 10/27/2024 5:50 PM EDT [facility] Alkaline Phosphatase 27(L) 36 - 125 U/L 10/27/2024 5:50 PM EDT [facility] Total Protein 4.1(L) 6.4 - 8.9 g/dL 10/27/2024 5:50 PM EDT [facility] Albumin 2.9(L) 3.5 - 5.7 g/dL 10/27/2024 5:50 PM EDT [facility] Bilirubin, Indirect 0.53 0.00 - 1.10 mg/dL 10/27/2024 5:50 PM EDT [facility] Plasma 10/27/2024 5:13 PM EDT 10/27/2024 5:23 PM EDT us Shay Plata MD LAB BLOOD ORDERABLES Final Result [facility] [address] [place], [place] [address] * (ABNORMAL) TEG-Bypass/ECMO/Liver HN (Factor function, Platelet/Fibrin Clot Strength w/Clot Breakdown, Heparinase In All Channels) (10/27/2024 5:13 PM EDT) [facility] Citrated Kaolin Reaction Time (TEGECMOLIVER) 8.0 4.6 - 9.1 minutes 10/27/2024 6:56 PM EDT [facility] Citrated Kaolin W/Heparinase Reaction Time (TEGECMOLIVER) 6.8 4.3 - 8.3 minutes 10/27/2024 6:56 PM EDT [facility] Citrated Kaolin Maximum Amplitude (TEGECMOLIVER) 55.4 52.0 - 69.0 mm 10/27/2024 6:56 PM EDT [facility] Citrated Functional Fibrinogen W/Heparinase Maximum Amplitude(TEGEC MOLIVER) 22.9 15.0 - 34.0 mm 10/27/2024 6:56 PM EDT [facility] Citrated Rapid Teg W/Heparinase Maximum Amplitude (TEGECMOLIVER) 50.8(L) 53.0 - 69.0 mm 10/27/2024 6:56 PM EDT [facility] Citrated Kaolin w/Heparinase Percent Lysis (TEGECMOLIVER) 0.1 0.0 - 3.2 % 10/27/2024 6:56 PM EDT [facility] Whole Blood (Citrate) 10/27/2024 5:13 PM EDT 10/27/2024 5:20 PM EDT Kemar Sahni MD LAB BLOOD ORDERABLES Final Result [facility] [address] * (ABNORMAL) Protime-INR (10/27/2024 5:13 PM EDT) Pathologist [facility] Protime 15.2(H) 12.1 - 15.1 seconds 10/27/2024 5:40 PM EDT [facility] INR 1.1 0.9 - 1.1 10/27/2024 5:40 PM EDT [facility] Comment: RECOMMENDED THERAPEUTIC RANGES USING INR : Stable oral anticoagulant therapy: 2.0 - 3.0 Mechanical prosthetic heart valve: 2.5 - 3.5 Recurrent acute myocardial infarction: 2.5 - 3.5 Plasma 10/27/2024 5:13 PM EDT 10/27/2024 5:23 PM EDT Kemar Sahni MD LAB BLOOD ORDERABLES Final Result Performing Organization Address City/[facility]/ZIP Co de Phone Number [facility] [address] * Magnesium (10/27/2024 5:13 PM EDT) [facility] Magnesium 2.4 1.5 - 2.5 mg/dL 10/27/2024 5:53 PM EDT [facility] Plasma 10/27/2024 5:13 PM EDT 10/27/2024 5:23 PM EDT Kemar Sahni MD LAB BLOOD ORDERABLES Final Result [facility] [address] * (ABNORMAL) Hepatic Function Panel (10/27/2024 5:13 PM EDT) Pathologist [facility] Total Bilirubin 1.7(H) 0.0 - 1.5 mg/dL 10/27/2024 5:53 PM EDT [facility] Bilirubin, Direct 1.10(H) 0.00 - 0.40 mg/dL 10/27/2024 5:53 PM EDT [facility] AST 62(H) 13 - 39 U/L 10/27/2024 5:53 PM EDT [facility] ALT 134(H) 7 - 52 U/L 10/27/2024 5:53 PM EDT [facility] Alkaline Phosphatase 27(L) 36 - 125 U/L 10/27/2024 5:53 PM EDT [facility] Total Protein 4.1(L) 6.4 - 8.9 g/dL 10/27/2024 5:53 PM EDT [facility] Albumin 2.9(L) 3.5 - 5.7 g/dL 10/27/2024 5:53 PM EDT [facility] Bilirubin, Indirect 0.60 0.00 - 1.10 mg/dL 10/27/2024 5:53 PM EDT [facility] Plasma 10/27/2024 5:13 PM EDT 10/27/2024 5:23 PM EDT us Kemar Sahni MD LAB BLOOD ORDERABLES Final Result [facility] [address] [place] [id number], [facility] * (ABNORMAL) Renal Function Panel w/EGFR (10/27/2024 5:13 PM EDT) Sodium 142 133 - 146 mmol/L 10/27/2024 5:53 PM EDT [facility] Potassium 3.4(L) 3.5 - 5.3 mmol/L 10/27/2024 5:53 PM EDT [facility] Chloride 109 98 - 110 mmol/L 10/27/2024 5:53 PM EDT [facility] CO2 22 21 - 33 mmol/L 10/27/2024 5:53 PM EDT [facility] Anion Gap 11 3 - 16 mmol/L 10/27/2024 5:53 PM EDT [facility] BUN 61(H) 7 - 25 mg/dL 10/27/2024 5:53 PM EDT [facility] Creatinine 2.42(H) 0.60 - 1.30 mg/dL 10/27/2024 5:53 PM EDT [facility] Glucose 125(H) 70 - 100 mg/dL 10/27/2024 5:53 PM EDT [facility] Calcium 8.8 8.6 - 10.3 mg/dL 10/27/2024 5:53 PM EDT [facility] Phosphorus 5.7(H) 2.1 - 4.7 mg/dL 10/27/2024 5:53 PM EDT [facility] Albumin 2.9(L) 3.5 - 5.7 g/dL 10/27/2024 5:53 PM EDT [facility] Osmolality, Calculated 313(H) 278 - 305 mOsm/kg 10/27/2024 5:53 PM EDT [facility] EGFR 34 10/27/2024 5:53 PM EDT [facility] [...] Sahni MD LAB BLOOD ORDERABLES Final Result [facility] [address] [facility] [place] [address], [facility] * (ABNORMAL) CBC (10/27/2024 5:13 PM EDT) WBC 4.9 3.8 - 10.8 10E3/uL 10/27/2024 6:14 PM EDT [facility] RBC 2.44(L) 4.20 - 5.80 10E6/uL 10/27/2024 6:14 PM EDT [facility] Hemoglobin 7.4(L) 13.2 - 17.1 g/dL 10/27/2024 6:14 PM EDT [facility] Hematocrit 21.4(L) 38.5 - 50.0 % 10/27/2024 6:14 PM EDT [facility] MCV 87.6 80.0 - 100.0 fL 10/27/2024 6:14 PM EDT [facility] MCH 30.3 27.0 - 33.0 pg 10/27/2024 6:14 PM EDT [facility] MCHC 34.6 32.0 - 36.0 g/dL 10/27/2024 6:14 PM EDT [facility] RDW 19.6(H) 11.0 - 15.0 % 10/27/2024 6:14 PM EDT [facility] Platelets 47(L) 140 - 400 10E3/uL 10/27/2024 6:14 PM EDT [facility] Comment: CNV Specimen checked for clots. None detected. MPV 8.1 7.5 - 11.5 fL 10/27/2024 6:14 PM EDT [facility] Whole Blood 10/27/2024 5:13 PM EDT 10/27/2024 5:23 PM EDT Kemar Sahni MD LAB BLOOD ORDERABLES Final Result Performing Organization Address City/State/[facility] Co de Phone Number [facility] [address] [id number] * (ABNORMAL) POC Glucose Monitoring Device (10/27/2024 3:57 PM EDT) POC Glucose Monitoring Device 131(H) 70 - 100 mg/dL 10/27/2024 3:58 PM EDT [facility] Blood 10/27/2024 3:57 PM EDT 10/27/2024 3:58 PM EDT us Semaj Mcnair III, MD POINT OF CARE TEST ORDERABLES Final Result Performing Organization Address City/[facility]/ZIP Co de Phone Number [facility] [address] [facility]. [address] * (ABNORMAL) CBC, STAT (10/27/2024 2:40 PM EDT) WBC 5.8 3.8 - 10.8 10E3/uL 10/27/2024 2:54 PM EDT [facility] RBC 2.43(L) 4.20 - 5.80 10E6/uL 10/27/2024 2:54 PM EDT [facility] Hemoglobin 7.5(L) 13.2 - 17.1 g/dL 10/27/2024 2:54 PM EDT [facility] Hematocrit 21.5(L) 38.5 - 50.0 % 10/27/2024 2:54 PM EDT [facility] MCV 88.2 80.0 - 100.0 fL 10/27/2024 2:54 PM EDT [facility] MCH 30.7 27.0 - 33.0 pg 10/27/2024 2:54 PM EDT [facility] MCHC 34.8 32.0 - 36.0 g/dL 10/27/2024 2:54 PM EDT [facility] RDW 19.1(H) 11.0 - 15.0 % 10/27/2024 2:54 PM EDT [facility] Platelets 50(L) 140 - 400 10E3/uL 10/27/2024 2:54 PM EDT [facility] MPV 7.5 7.5 - 11.5 fL 10/27/2024 2:54 PM EDT [facility] Whole Blood 10/27/2024 2:40 PM EDT 10/27/2024 2:44 PM EDT us John Moreno MD LAB BLOOD ORDERABLES Final R esult [facility] [address] [facility]. [address] * (ABNORMAL) Blood Gas, Arterial, STAT (10/27/2024 2:40 PM EDT) O2 Sat, Arterial 98 10/27/2024 2:46 PM EDT [facility] FIO2 RA 10/27/2024 2:46 PM EDT [facility] pH, Arterial 7.37 7.35 - 7.45 10/27/2024 2:46 PM EDT [facility] pCO2, Arterial 35 35 - 45 mm Hg 10/27/2024 2:46 PM EDT [facility] pO2, Arterial 92 80 - 100 mm Hg 10/27/2024 2:46 PM EDT [facility] HCO3, Arterial 21(L) 22 - 26 mmol/L 10/27/2024 2:46 PM EDT [facility] CO2 Content,Arteri al 21(L) 23 - 27 mmol/L 10/27/2024 2:46 PM EDT [facility] Base Excess, Arterial -4.6(L) -2.0 - 3.0 mmol/L 10/27/2024 2:46 PM EDT [facility] %HBO2, Arterial 95.4 95.0 - 98.0 % 10/27/2024 2:46 PM EDT [facility] Carboxyhemoglo bin, Arterial 1.6 % 10/27/2024 2:46 PM EDT [facility] Comment: CARBOXYHEMOGLOBIN (CO) REFERENCE RANGES: Non-Smokers: <2 % Smokers: <8 % TOXIC: >20 % Methemoglobin, Arterial 1.0 0.0 - 1.5 % 10/27/2024 2:46 PM EDT [facility] Reduced hemoglobin, Arterial 2.1 0.0 - 5.0 % 10/27/2024 2:46 PM EDT [facility] Blood, Arterial 10/27/2024 2 :40 PM EDT 10/27/2024 2:44 PM EDT Narrative [facility] - 10/27/2024 2:46 PM EDT Post extubation us John Moreno MD LAB BLOOD ORDERABLES Final R esult [facility] [address] [place] [address], [facility] * (ABNORMAL) POC Glucose Monitoring Device (10/27/2024 2:06 PM EDT) POC Glucose Monitoring Device 134(H) 70 - 100 mg/dL 10/27/2024 2:06 PM EDT [facility] Blood 10/27/2024 2:06 PM EDT 10/27/2024 2:06 PM EDT Semaj Mcnair III, MD POINT OF CARE TEST ORDERABLES Final Result [facility] [address] [id number], [facility] * (ABNORMAL) Blood gas, arterial (10/27/2024 12:35 PM EDT) O2 Sat, Arterial 99 10/27/2024 12:46 PM EDT [facility] FIO2 SBT 30% 10/27/2024 12:46 PM EDT [facility] pH, Arterial 7.35 7.35 - 7.45 10/27/2024 12:46 PM EDT [facility] pCO2, Arterial 37 35 - 45 mm Hg 10/27/2024 12:46 PM EDT [facility] pO2, Arterial 182(H) 80 - 100 mm Hg 10/27/2024 12:46 PM EDT [facility] HCO3, Arterial 21(L) 22 - 26 mmol/L 10/27/2024 12:46 PM EDT [facility] CO2 Content,Arteri al 22(L) 23 - 27 mmol/L 10/27/2024 12:46 PM EDT [facility] Base Excess, Arterial -4.8(L) -2.0 - 3.0 mmol/L 10/27/2024 12:46 PM EDT [facility] %HBO2, Arterial 96.3 95.0 - 98.0 % 10/27/2024 12:46 PM EDT [facility] Carboxyhemoglo bin, Arterial 1.7 % 10/27/2024 12:46 PM EDT [facility] Comment: CARBOXYHEMOGLOBIN (CO) REFERENCE RANGES: Non-Smokers: <2 % Smokers: <8 % TOXIC: >20 % Methemoglobin, Arterial 1.4 0.0 - 1.5 % 10/27/2024 12:46 PM EDT [facility] Reduced hemoglobin, Arterial 0.6 0.0 - 5.0 % 10/27/2024 12:46 PM EDT [facility] Blood, Arterial 10/27/2024 1 2:35 PM EDT 10/27/2024 12:42 PM EDT Narrative [facility] - 10/27/2024 12:46 PM EDT Please obtain post SBT us Shay Sifuentes MD LAB BLOOD ORDERABLES Final Resu lt [facility] [address] [place] [address], [facility] * (ABNORMAL) TEG-Bypass/ECMO/Liver HN (Factor function, Platelet/Fibrin Clot Strength w/Clot Breakdown, Heparinase In All Channels) (10/27/2024 12:07 PM EDT) [facility] Citrated Kaolin Reaction Time (TEGECMOLIVER) 7.9 4.6 - 9.1 minutes 10/27/2024 1:24 PM EDT [facility] Citrated Kaolin W/Heparinase Reaction Time (TEGECMOLIVER) 8.3 4.3 - 8.3 minutes 10/27/2024 1:24 PM EDT [facility] Citrated Kaolin Maximum Amplitude (TEGECMOLIVER) 52.0 52.0 - 69.0 mm 10/27/2024 1:24 PM EDT [facility] Citrated Functional Fibrinogen W/Heparinase Maximum Amplitude(TEGEC MOLIVER) 20.1 15.0 - 34.0 mm 10/27/2024 1:24 PM EDT [facility] Citrated Rapid Teg W/Heparinase Maximum Amplitude (TEGECMOLIVER) 49.4(L) 53.0 - 69.0 mm 10/27/2024 1:24 PM EDT [facility] Citrated Kaolin w/Heparinase Percent Lysis (TEGECMOLIVER) 0.0 0.0 - 3.2 % 10/27/2024 1:24 PM EDT [facility] Whole Blood (Citrate) 10/27/2024 12:07 PM EDT 10/27/2024 12:09 PM EDT Kemar Sahni MD LAB BLOOD ORDERABLES Final Result Performing Organization Address [facility] Co de Phone Number [facility] [address] * (ABNORMAL) POC Glucose Monitoring Device (10/27/2024 12:01 PM EDT) POC Glucose Monitoring Device 121(H) 70 - 100 mg/dL 10/27/2024 12:02 PM EDT [facility] Blood 10/27/2024 12:0 1 PM EDT 10/27/2024 12:01 PM EDT Semaj Mcnair III, MD POINT OF CARE TEST ORDERABLES Final Result Performing Organization Address [facility] de Phone Number [facility] [address] [facility]. [address] * (ABNORMAL) POC Glucose Monitoring Device (10/27/2024 10:59 AM EDT) POC Glucose Monitoring Device 126(H) 70 - 100 mg/dL 10/27/2024 11:10 AM EDT [facility] Blood 10/27/2024 10:5 9 AM EDT 10/27/2024 11:10 AM EDT Semaj Mcnair III, MD POINT OF CARE TEST ORDERABLES Final Result Performing Organization Address [facility] Co de Phone Number [facility] [address] [facility]. [address] * ECG 12 lead (MUSE) (10/27/2024 10:17 AM EDT) 10/27/2024 10:1 7 AM EDT Narrative MUSE - 10/27/2024 2:51 PM EDT Ventricular Rate: 91 BPM Atrial Rate: 91 BPM P-R Interval: 168 ms QRS Duration: 90 ms QT: 274 ms QTc: 337 ms P [place]: 60 degrees R [place]: -30 degrees T [place]: -15 degrees Diagnosis Line: NORMAL SINUS RHYTHM ^ LEFT AXIS DEVIATION, LEFT ANTERIOR HEMIBLOCK ^ NONSPECIFIC T WAVE CHANGE ^ ABNORMAL ECG ^ ^ Confirmed by MD ROLLY, [facility] ([id number]) on 10/27/2024 2:51:52 PM Shay Sifuentes MD ECG ORDERABLES Final Result Performing Organization Address City/[facility]/ZIP Co de Phone Number MUSE * (ABNORMAL) POC Glucose Monitoring Device (10/27/2024 10:00 AM EDT) [facility] Signature POC Glucose Monitoring Device 121(H) 70 - 100 mg/dL 10/27/2024 10:01 AM EDT [facility] Blood 10/27/2024 10:0 0 AM EDT 10/27/2024 10:01 AM EDT Semaj Mcnair III, MD POINT OF CARE TEST ORDERABLES Final Result Performing Organization Address [facility] de Phone Number [facility] [address] * US Renal Transplant (10/27/2024 9:51 [...] US ORDERABLES Final Result * US Duplex [id number] Comp (10/27/2024 9:51 AM EDT) Anatomical Region [...] EXAM: US ABDOMEN LIMITED EXAM: US DUPLEX [id number] COMPLETE INDICATION: Post-op liver transplant COMPARISON: None [...] absent.. Pancreas: Obscured by overlying bowel gas. [place] right kidney: 12.5 cm in length. Normal [...] EXAM: US ABDOMEN LIMITED EXAM: US DUPLEX [id number] COMPLETE INDICATION: Post-op liver transplant COMPARISON: None [...] absent.. Pancreas: Obscured by overlying bowel gas. [place] right kidney: 12.5 cm in length. Normal [...] EXAM: US ABDOMEN LIMITED EXAM: US DUPLEX [id number] COMPLETE INDICATION: Post-op liver transplant COMPARISON: None [...] absent.. Pancreas: Obscured by overlying bowel gas. [place] right kidney: 12.5 cm in length. Normal [...] EXAM: US ABDOMEN LIMITED EXAM: US DUPLEX [id number] COMPLETE INDICATION: Post-op liver transplant COMPARISON: None [...] absent.. Pancreas: Obscured by overlying bowel gas. [place] right kidney: 12.5 cm in length. Normal [...] OF CARE TEST ORDERABLES Final Result [facility] [address] [place] [address], [facility] * X-ray Portable Chest (10/27/2024 8:58 [...] - 15.1 seconds 10/27/2024 8:35 AM EDT [facility] INR 1.2(H) 0.9 - 1.1 10/27/2024 8:35 AM EDT [facility] Comment: RECOMMENDED THERAPEUTIC RANGES USING INR : Stable oral anticoagulant therapy: 2.0 - 3.0 Mechanical prosthetic heart valve: 2.5 - 3.5 Recurrent acute myocardial infarction: 2.5 - 3.5 Plasma 10/27/2024 8:16 AM EDT 10/27/2024 8:20 AM EDT John Moreno MD LAB BLOOD ORDERABLES Final R esult [facility] [address] * Magnesium (10/27/2024 8:00 AM EDT) Magnesium 1.8 1.5 - 2.5 mg/dL 10/27/2024 10:50 AM EDT [facility] Plasma 10/27/2024 8:00 AM EDT 10/27/2024 10:31 AM EDT Kemar Sahni MD LAB BLOOD ORDERABLES Final Result Performing Organization Address [facility] Co de Phone Number [facility] [address] * (ABNORMAL) Renal Function Panel w/EGFR (10/27/2024 8:00 AM EDT) Sodium 142 133 - 146 mmol/L 10/27/2024 10:18 AM EDT [facility] Potassium 3.0(L) 3.5 - 5.3 mmol/L 10/27/2024 10:18 AM EDT [facility] Chloride 109 98 - 110 mmol/L 10/27/2024 10:18 AM EDT [facility] CO2 21 21 - 33 mmol/L 10/27/2024 10:18 AM EDT [facility] Anion Gap 12 3 - 16 mmol/L 10/27/2024 10:18 AM EDT [facility] BUN 59(H) 7 - 25 mg/dL 10/27/2024 10:18 AM EDT [facility] Creatinine 2.54(H) 0.60 - 1.30 mg/dL 10/27/2024 10:18 AM EDT [facility] [facility] Glucose 111(H) 70 - 100 mg/dL 10/27/2024 10:18 AM EDT [facility] Calcium 9.1 8.6 - 10.3 mg/dL 10/27/2024 10:18 AM EDT [facility] Phosphorus 5.5(H) 2.1 - 4.7 mg/dL 10/27/2024 10:18 AM EDT [facility] Albumin 3.0(L) 3.5 - 5.7 g/dL 10/27/2024 10:18 AM EDT [facility] Osmolality, Calculated 311(H) 278 - 305 mOsm/kg 10/27/2024 10:18 AM EDT [facility] EGFR 32 10/27/2024 10:18 AM EDT [facility] Comment:As [...] Sahni MD LAB BLOOD ORDERABLES Final Result [facility] [address] * (ABNORMAL) Hepatic Function Panel, STAT (10/27/2024 8:00 AM EDT) Total Bilirubin 1.3 0.0 - 1.5 mg/dL 10/27/2024 8:51 AM EDT [facility] Bilirubin, Direct 0.93(H) 0.00 - 0.40 mg/dL 10/27/2024 8:51 AM EDT [facility] AST 88(H) 13 - 39 U/L 10/27/2024 8:51 AM EDT [facility] ALT 149(H) 7 - 52 U/L 10/27/2024 8:51 AM EDT [facility] Alkaline Phosphatase 26(L) 36 - 125 U/L 10/27/2024 8:51 AM EDT [facility] Total Protein 4.0(L) 6.4 - 8.9 g/dL 10/27/2024 8:51 AM EDT [facility] Albumin 3.0(L) 3.5 - 5.7 g/dL 10/27/2024 8:51 AM EDT [facility] Bilirubin, Indirect 0.37 0.00 - 1.10 mg/dL 10/27/2024 8:51 AM EDT [facility] Plasma 10/27/2024 8:00 AM EDT 10/27/2024 8:20 AM EDT Semaj Mcnair III, MD LAB BLOOD ORDERABLE S Final Result Performing Organization Address City/[facility] Co de Phone Number [facility] [address] * (ABNORMAL) Lactic Acid, STAT (10/27/2024 8:00 AM EDT) Lactate 0.4(L) 0.5 - 2.2 mmol/L 10/27/2024 8:43 AM EDT [facility] Plasma 10/27/2024 8:00 AM EDT 10/27/2024 8:20 AM EDT Semaj Mcnair III, MD LAB BLOOD ORDERABLE S Final Result Performing Organization Address City/[facility] Co de Phone Number [facility] [address] * (ABNORMAL) Blood Gas, Arterial, STAT (10/27/2024 8:00 AM EDT) O2 Sat, Arterial 100 10/27/2024 8:23 AM EDT [facility] pH, Arterial 7.36 7.35 - 7.45 10/27/2024 8:23 AM EDT [facility] pCO2, Arterial 37 35 - 45 mm Hg 10/27/2024 8:23 AM EDT [facility] pO2, Arterial 245(H) 80 - 100 mm Hg 10/27/2024 8:23 AM EDT [facility] HCO3, Arterial 22 22 - 26 mmol/L 10/27/2024 8:23 AM EDT [facility] CO2 Content,Arteri al 22(L) 23 - 27 mmol/L 10/27/2024 8:23 AM EDT [facility] Base Excess, Arterial -4.2(L) -2.0 - 3.0 mmol/L 10/27/2024 8:23 AM EDT [facility] %HBO2, Arterial 96.5 95.0 - 98.0 % 10/27/2024 8:23 AM EDT [facility] Carboxyhemoglo bin, Arterial 2.2 % 10/27/2024 8:23 AM EDT [facility] Comment: CARBOXYHEMOGLOBIN (CO) REFERENCE RANGES: Non-Smokers: <2 % Smokers: <8 % TOXIC: >20 % Methemoglobin, Arterial 1.2 0.0 - 1.5 % 10/27/2024 8:23 AM EDT [facility] Reduced hemoglobin, Arterial 0.0 0.0 - 5.0 % 10/27/2024 8:23 AM EDT [facility] Blood, Arterial 10/27/2024 8 :00 AM EDT 10/27/2024 8:19 AM EDT Narrative [facility] - 10/27/2024 8:23 AM EDT Specimen is beyond 15 minutes from time of collection. Results may be compromised. Review results critically. us Kemar Sahni MD LAB BLOOD ORDERABLES Final Result [facility] [address] [place], [place] [address] * (ABNORMAL) TEG-Bypass/ECMO/Liver HN (Factor function, Platelet/Fibrin Clot Strength w/Clot Breakdown, Heparinase In All Channels) (10/27/2024 8:00 AM EDT) Citrated Kaolin Reaction Time (TEGECMOLIVER) 7.8 4.6 - 9.1 minutes 10/27/2024 9:39 AM EDT [facility] Citrated Kaolin W/Heparinase Reaction Time (TEGECMOLIVER) 8.0 4.3 - 8.3 minutes 10/27/2024 9:39 AM EDT [facility] Citrated Kaolin Maximum Amplitude (TEGECMOLIVER) 52.7 52.0 - 69.0 mm 10/27/2024 9:39 AM EDT [facility] Citrated Functional Fibrinogen W/Heparinase Maximum Amplitude(TEGEC MOLIVER) 19.0 15.0 - 34.0 mm 10/27/2024 9:39 AM EDT [facility] Citrated Rapid Teg W/Heparinase Maximum Amplitude (TEGECMOLIVER) 49.5(L) 53.0 - 69.0 mm 10/27/2024 9:39 AM EDT [facility] Citrated Kaolin w/Heparinase Percent Lysis (TEGECMOLIVER) 0.0 0.0 - 3.2 % 10/27/2024 9:39 AM EDT [facility] Whole Blood (Citrate) 10/27/2024 8:00 AM EDT 10/27/2024 8:19 AM EDT Kemar Sahni MD LAB BLOOD ORDERABLES Final Result Performing Organization Address City/State/[facility] Co de Phone Number [facility] [address] * (ABNORMAL) Katie-Watkins virus VCA IgG Antibody (10/27/2024 8:00 AM EDT) Pathologist [facility] EBV VCA IgG Positive( A) Negative 10/27/2024 11:30 AM EDT [facility] Comment:Presence of detectab le VCA IgG antibodies. 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 EBV IGG NUM 314.00(H) 0.00 - 17.99 U/mL 10/27/2024 11:30 AM EDT [facility] Serum 10/27/2024 8:00 AM EDT 10/27/2024 8:20 AM EDT Kemar Sahni MD LAB BLOOD ORDERABLES Final Result Performing Organization Address [facility] Co de Phone Number [facility] [address] * Hemoglobin A1c (10/27/2024 8:00 AM EDT) Hemoglobin A1C 5.0 4.0 - 5.6 % 10/27/2024 11:12 AM EDT [facility] Comment: Hemoglobin A1c Interpretation [...] Final Result Performing Organization Address [facility] Co de Phone Number [facility] [address] * (ABNORMAL) POC Glucose Monitoring Device (10/27/2024 7:59 AM EDT) POC Glucose Monitoring Device 113(H) 70 - 100 mg/dL 10/27/2024 7:59 AM EDT [facility] Blood 10/27/2024 7:59 AM EDT 10/27/2024 7:59 AM EDT Semaj Mcnair III, MD POINT OF CARE TEST ORDERABLES Final Result Performing Organization Address [facility] Co de Phone Number [facility] [address] [place] [address], [facility] * X-ray Abdomen AP view (10/27/2024 7:47 [...] Units (10/27/2024 6:16 AM EDT) Product Code N0518A55 [facility]LL Unit Number [id number] HCLL Dispense Status Presumed Transfused_PT HCLL Blood Expiration Date [id number] HCLL Coding System [id number] HCLL Product Code B5545I89 HCLL Unit Number [id number] HCLL Dispense Status Presumed Transfused_PT [facility]LL Blood Expiration Date [id number] HCLL Coding System [id number] HCLL Blood Bank Product John Pina MD BLOOD BANK PRODUCT ORDERABLES F inal Result Performing Organization Address City/[facility] Co de Phone Number [facility] * Prepare Platelets, leukoreduced, 1 Units (10/27/2024 6:16 AM EDT) Product Code H2283J19 HCLL Unit Number [id number] [facility]LL Dispense Status Presumed Transfused_PT [facility]LL Blood Expiration Date 060916619401 HCLL Coding System CVQN248 [facility] Blood Bank Product Eber Quinones MD BLOOD BANK PRODUCT ORDER PAL Final Result Performing Organization Address City/[facility] Co de Phone Number [facility] * Prepare Cryoprecipitate, 1 Units (10/27/2024 6:16 AM EDT) Product Code R7425B98 [facility]LL Unit Number [id number] HCLL Dispense Status Presumed Transfused_PT HCLL Blood Expiration Date HCLL Coding System QLAU871 HCLL Product Code F4218Z36 HCLL Unit Number [id number] HCLL Dispense Status Presumed Transfused_PT HCLL Blood Expiration Date 072794133746 HCLL Coding System UOIV934 [facility] Blood Bank Product Eber Quinones MD BLOOD BANK PRODUCT ORDER PAL Final Result [facility] * Prepare Fresh Frozen Plasma, 10 Units (10/27/2024 6:16 AM EDT) Product Code G9672V71 HCLL Unit Number [id number] HCLL Dispense Status Presumed Transfused_PT HCLL Blood Expiration Date 695849655762 HCLL Coding System OLFM242 HCLL Product Code I2087T85 HCLL Unit Number [id number] HCLL Dispense Status Presumed Transfused_PT HCLL Blood Expiration Date 955492530266 HCLL Coding System FEUU597 HCLL Product Code G3429T60 HCLL Unit Number [id number] HCLL Dispense Status Presumed Transfused_PT HCLL Blood Expiration Date 227294296098 HCLL Coding System WEBW176 HCLL Product Code A6847L66 HCLL Unit Number [id number] HCLL Dispense Status Presumed Transfused_PT HCLL Blood Expiration Date 770855980401 HCLL Coding System LIKO670 HCLL Product Code C9118O56 HCLL Unit Number [id number] HCLL Dispense Status Released from Crossmatch_RE HCLL Blood Expiration Date 179850113326 HCLL Coding System OXHC569 HCLL Product Code Y9839D31 HCLL Unit Number [id number] HCLL Dispense Status Released from Crossmatch_RE HCLL Blood Expiration Date HCLL Coding System TDBK692 HCLL Product Code T7635F70 HCLL Unit Number [id number] HCLL Dispense Status Presumed Transfused_PT HCLL Blood Expiration Date HCLL Coding System FUNU184 HCLL Product Code Q7640N49 HCLL Unit Number [id number] HCLL Dispense Status Presumed Transfused_PT HCLL Blood Expiration Date HCLL Coding System QWTI507 HCLL Product Code C5969E88 HCLL Unit Number [id number] HCLL Dispense Status Presumed Transfused_PT HCLL Blood Expiration Date 822247919172 HCLL Coding System BGCT634 HCLL Product Code U3714P13 HCLL Unit Number [id number] HCLL Dispense Status Presumed Transfused_PT HCLL Blood Expiration Date HCLL Coding System WXIH339 HCLL Blood Bank Product Leandra Og MD BLOOD BANK PRODUCT ORD ERABLES Final Result Performing Organization Address [facility] Co de Phone Number HC[facility] * Prepare Platelets, leukoreduced, 1 Units (10/27/2024 6:16 AM EDT) Product Code P3149W94 HCLL Unit Number [id number] HCLL Dispense Status Presumed Transfused_PT HCLL Blood Expiration Date 142592846785 HCLL Coding System SXCM064 [facility] Blood Bank Product Ben Blake MD BLOOD BANK PRODUCT ORDERABLES Final Result Performing Organization Address City/[facility]/ZIP Co de Phone Number HC[facility] * Prepare Fresh Frozen Plasma (10/27/2024 6:15 AM EDT) Product Code Y3727O88 HCLL Unit Number [id number] HCLL Dispense Status Presumed Transfused_PT HCLL Blood Expiration Date HCLL Coding System FENK523 HCLL Product Code B6009O62 HCLL Unit Number [id number] HCLL Dispense Status Released from Crossmatch_RE HCLL Blood Expiration Date HCLL Coding System VXGJ790 HCLL Product Code H4902X36 HCLL Unit Number [id number] HCLL Dispense Status Presumed Transfused_PT HCLL Blood Expiration Date HCLL Coding System MVBR887 HCLL Product Code Y1566G08 HCLL Unit Number [id number] HCLL Dispense Status Presumed Transfused_PT HCLL Blood Expiration Date HCLL Coding System JJCA657 HCLL Product Code Y8430F27 HCLL Unit Number [id number] HCLL Dispense Status Released from Crossmatch_RE HCLL Blood Expiration Date HCLL Coding System BCPU882 HCLL us Attending Provider Unknown BLOOD BANK PRODUCT OR DERABLES Final Result [facility] * Prepare RBC, leukoreduced (10/27/2024 6:15 AM EDT) Product Code P8914J94 HCLL Unit Number [id number] HCLL Dispense Status Presumed Transfused_PT HCLL Blood Expiration Date HCLL Coding System QMWP681 HCLL Product Code U4315R76 HCLL Unit Number [id number] HCLL Dispense Status Released from Crossmatch_RE HCLL Blood Expiration Date HCLL Coding System LWVQ380 HCLL Product Code P4267Q41 HCLL Unit Number [id number] HCLL Dispense Status Released from Crossmatch_RE HCLL Blood Expiration Date 230728422515 HCLL Coding System GPJI886 HCLL Product Code A6773Y43 HCLL Unit Number [id number] HCLL Dispense Status Released from Crossmatch_RE HCLL Blood Expiration Date 399873971650 HCLL Coding System QTCZ795 HCLL Product Code D5577F01 HCLL Unit Number [id number] HCLL Dispense Status Released from Crossmatch_RE HCLL Blood Expiration Date 629467014684 HCLL Coding System FGPA966 HCLL us Attending Provider Unknown BLOOD BANK PRODUCT OR DERABLES Final Result [facility] * Prepare RBC, leukoreduced, 10 Units (10/27/2024 6:15 AM EDT) Product Code Y2690F98 HCLL Unit Number [id number] HCLL Dispense Status Presumed Transfused_PT HCLL Blood Expiration Date HCLL Coding System OZKF068 HCLL Product Code Z0592F67 HCLL Unit Number [id number] HCLL Dispense Status Presumed Transfused_PT HCLL Blood Expiration Date HCLL Coding System UVAO404 HCLL Product Code F7399F60 HCLL Unit Number [id number] HCLL Dispense Status Presumed Transfused_PT HCLL Blood Expiration Date HCLL Coding System PJFL531 HCLL Product Code N1058W86 HCLL Unit Number [id number] HCLL Dispense Status Presumed Transfused_PT HCLL Blood Expiration Date HCLL Coding System EZFO621 HCLL Product Code S5815I28 HCLL Unit Number [id number] HCLL Dispense Status Presumed Transfused_PT HCLL Blood Expiration Date HCLL Coding System FOYW345 HCLL Product Code Q6932Y27 HCLL Unit Number [id number] HCLL Dispense Status Presumed Transfused_PT HCLL Blood Expiration Date HCLL Coding System TIWY790 HCLL Product Code S4951W63 HCLL Unit Number [id number] HCLL Dispense Status Presumed Transfused_PT HCLL Blood Expiration Date HCLL Coding System DMSH313 HCLL Product Code Q0233Q90 HCLL Unit Number [id number] HCLL Dispense Status Presumed Transfused_PT HCLL Blood Expiration Date HCLL Coding System BMFS324 HCLL Product Code J3415V72 HCLL Unit Number [id number] HCLL Dispense Status Presumed Transfused_PT HCLL Blood Expiration Date HCLL Coding System QBZX025 HCLL Product Code J5623I06 HCLL Unit Number [id number] HCLL Dispense Status Presumed Transfused_PT HCLL Blood Expiration Date 547398214669 HCLL Coding System QOYN096 HCLL Blood Bank Product Leandra Og MD BLOOD BANK PRODUCT ORD ERABLES Final Result [facility] * Transfuse Platelets (10/27/2024 6:09 AM EDT) Ben Blake MD NURSING TREATMENT ORDERABLES - BLOOD ADMIN Final Result * (ABNORMAL) Arterial Blood Gas Panel (10/27/2024 6:09 AM EDT) O2Sat (ABGP) 100 10/27/2024 6:17 AM EDT [facility] pH (ABGP) 7.30(L) 7.35 - 7.45 10/27/2024 6:17 AM EDT [facility] PCO2 (ABGP) 41 35 - 45 mm Hg 10/27/2024 6:17 AM EDT [facility] PO2 (ABGP) 192(H) 80 - 100 mm Hg 10/27/2024 6:17 AM EDT [facility] HCO3 (ABGP) 21(L) 22 - 26 mmol/L 10/27/2024 6:17 AM EDT [facility] CO2 Content (ABGP) 22(L) 23 - 27 mmol/L 10/27/2024 6:17 AM EDT [facility] Base Excess (ABGP) -5.7(L) -2.0 - 3.0 mmol/L 10/27/2024 6:17 AM EDT [facility] Sodium (ABGP) 138 136 - 146 mEq/L 10/27/2024 6:17 AM EDT [facility] Potassium (ABGP) 3.3(L) 3.5 - 5.0 mEq/L 10/27/2024 6:17 AM EDT [facility] Comment:In the event of in-v itro hemolysis, potassium results may be falsely elevated. Always interpret lab results in conjunction with clinical findings. If hemolysis is suspected, a serum sample may be collected for repeat assessment of potassium. Calcium, Free (ABGP) 5.28 4.50 - 5.30 mg/dL 10/27/2024 6:17 AM EDT [facility] Glucose (ABGP) 112(H) 70 - 100 mg/dL 10/27/2024 6:17 AM EDT [facility] Comment:There is interferenc e with whole blood glucose results on this method when Hematocrit is <25% or >60%. HCT (ABGP) 20.0(L) 40.0 - 52.0 % 10/27/2024 6:17 AM EDT [facility] HGB (ABGP) 6.5(L) 14.0 - 18.0 g/dL 10/27/2024 6:17 AM EDT [facility] %HBO2 (ABGP) 96.8 95.0 - 98.0 % 10/27/2024 6:17 AM EDT [facility] Carboxyhgb (ABGP) 2.1 % 025 6:17 AM EDT [facility] Comment: CARBOXYHEMOGLOBIN (CO) REFERENCE RANGES: Non-Smokers: <2 % Smokers: <8 % TOXIC: >20 % Methemoglobin (ABGP) 1.0 0.0 - 1.5 % 10/27/2024 6:17 AM EDT [facility] Reduced Hemoglobin (ABGP) 0.2 0.0 - 5.0 % 10/27/2024 6:17 AM EDT [facility] Lactic Acid (ABGP) 0.4(L) 0.5 - 1.6 mmol/L 10/27/2024 6:17 AM EDT [facility] Blood, Arterial 10/27/2024 6 :09 AM EDT 10/27/2024 6:14 AM EDT Ben Blake MD LAB BLOOD ORDERABLES Final Re sult [facility] [address] [place] [address], [facility] * Transfuse Fresh Frozen Plasma (10/27/2024 5:49 AM EDT) Ben Blake MD NURSING TREATMENT ORDERABLES - BLOOD ADMIN Final Result * Transfuse Cryoprecipitate (10/27/2024 4:56 AM EDT) Result [facility] Ben Blake MD NURSING TREATMENT ORDERABLES - BLOOD ADMIN Final Result * Transfuse Cryoprecipitate (10/27/2024 4:49 AM EDT) Result [facility] Ben Blake MD NURSING TREATMENT ORDERABLES - BLOOD ADMIN Final Result * (ABNORMAL) POC Glucose Monitoring Device (10/27/2024 4:46 AM EDT) POC Glucose Monitoring Device 124(H) 70 - 100 mg/dL 10/27/2024 4:47 AM EDT [facility] Blood 10/27/2024 4:46 AM EDT 10/27/2024 4:47 AM EDT Result [facility] Semaj Mcnair III, MD POINT OF CARE TEST ORDERABLES Final Result Performing Organization Address City/State/[facility] Co de Phone Number [facility] [address] [place] [address], [facility] * Transfuse Platelets (10/27/2024 4:24 AM EDT) Result [facility] Ben Blake MD NURSING TREATMENT ORDERABLES - BLOOD ADMIN Final Result * Transfuse Fresh Frozen Plasma (10/27/2024 4:07 AM EDT) Result [facility] Ben Blake MD NURSING TREATMENT ORDERABLES - BLOOD ADMIN Final Result * Transfuse RBC (10/27/2024 3:52 AM EDT) Result [facility] Ben Blake MD NURSING TREATMENT ORDERABLES - BLOOD ADMIN Final Result * (ABNORMAL) Arterial Blood Gas Panel (10/27/2024 3:07 AM EDT) O2Sat (ABGP) 100 10/27/2024 3:21 AM EDT [facility] pH (ABGP) 7.32(L) 7.35 - 7.45 10/27/2024 3:21 AM EDT [facility] PCO2 (ABGP) 38 35 - 45 mm Hg 10/27/2024 3:21 AM EDT [facility] PO2 (ABGP) 176(H) 80 - 100 mm Hg 10/27/2024 3:21 AM EDT [facility] HCO3 (ABGP) 20(L) 22 - 26 mmol/L 10/27/2024 3:21 AM EDT [facility] CO2 Content (ABGP) 21(L) 23 - 27 mmol/L 10/27/2024 3:21 AM EDT [facility] Base Excess (ABGP) -6.0(L) -2.0 - 3.0 mmol/L 10/27/2024 3:21 AM EDT [facility] Sodium (ABGP) 138 136 - 146 mEq/L 10/27/2024 3:21 AM EDT [facility] Potassium (ABGP) 3.0(L) 3.5 - 5.0 mEq/L 10/27/2024 3:21 AM EDT [facility] Comment:In the event of in-v itro hemolysis, potassium results may be falsely elevated. Always interpret lab results in conjunction with clinical findings. If hemolysis is suspected, a serum sample may be collected for repeat assessment of potassium. Calcium, Free (ABGP) 5.28 4.50 - 5.30 mg/dL 10/27/2024 3:21 AM EDT [facility] Glucose (ABGP) 108(H) 70 - 100 mg/dL 10/27/2024 3:21 AM EDT [facility] Comment:There is interferenc e with whole blood glucose results on this method when Hematocrit is <25% or >60%. HCT (ABGP) 22.0(L) 40.0 - 52.0 % 10/27/2024 3:21 AM EDT [facility] HGB (ABGP) 7.3(L) 14.0 - 18.0 g/dL 10/27/2024 3:21 AM EDT [facility] %HBO2 (ABGP) 97.3 95.0 - 98.0 % 10/27/2024 3:21 AM EDT [facility] Carboxyhgb (ABGP) 1.9 % 025 3:21 AM EDT [facility] Comment: CARBOXYHEMOGLOBIN (CO) REFERENCE RANGES: Non-Smokers: <2 % Smokers: <8 % TOXIC: >20 % Methemoglobin (ABGP) 0.8 0.0 - 1.5 % 10/27/2024 3:21 AM EDT [facility] Reduced Hemoglobin (ABGP) 0.0 0.0 - 5.0 % 10/27/2024 3:21 AM EDT [facility] Lactic Acid (ABGP) 0.3(L) 0.5 - 1.6 mmol/L 10/27/2024 3:21 AM EDT [facility] Blood, Arterial 10/27/2024 3 :07 AM EDT 10/27/2024 3:14 AM EDT us Ben Blake MD LAB BLOOD ORDERABLES Final Re sult [facility] [address] [id number] * Surgical Pathology Exam (10/27/2024 2:38 AM EDT) Tissue LEFT KIDNEY STRUCTURE / Unknown 10/27/2024 2:38 AM EDT Narrative [facility] - 10/27/2024 12:00 AM EDT CASE: [id number] PATIENT: BLAIR GILBERT Clinical History: Transplant kidney with bile duct reconstruction Pre-Operative Diagnosis: Acute kidney injury superimposed on CKD Post-Operative Diagnosis: None Given Specimen(s) Submitted: A. baseline renal biopsy ; B. right lobe liver biopsy; C. left lobe liver biopsy CPT Code(s): 07635 X 1; 62826 X 2; 01912 X 4 Additional Information: FINAL DIAGNOSIS: A. [...] signing this report is located at [facility], [address] [place] [address], [facility] [phone], CLIA ID: [id number] ADDENDUM: A. Kidney, allograft, baseline, wedge biopsy: [...] signing this report is located at [facility], [address] [place] [address], [place], [place], [facility], , CLIA ID: [id number] Kemar Sahni MD PATHOLOGY/CYTOLOGY ORDERABL ES Edited Result - Final Performing Organization Address City/[facility]/ZIP Co de Phone Number [facility] * Anaerobic culture (10/27/2024 2:15 AM EDT) Culture Result No Anaerobes Isolated in 5 Days [facility] Fluid SPECIMEN FROM KIDNEY / Unknown 10/27/2024 2:15 AM EDT 10/27/2024 4:24 AM EDT Narrative [facility] - 10/31/2024 11:43 AM EDT 1) perfusate Semaj Mcnair III, MD MICROBIOLOGY - GENE RAL ORDERABLES Final Result Performing Organization Address [facility] Co de Phone Number [facility] [address] [place] [address] * Routine Culture plus Stain (10/27/2024 2:15 AM EDT) Gram Stain Result No Polymorphonuclear Leukocytes Seen [facility] Gram Stain Result No Organisms Seen; [facility] Culture Result No Growth After 3 Days [facility] Fluid SPECIMEN FROM KIDNEY / Unknown 10/27/2024 2:15 AM EDT 10/27/2024 4:24 AM EDT Narrative [facility]ALTH [facility] - 10/30/2024 9:26 AM EDT 1) perfusate Semaj Mcnair III, MD MICROBIOLOGY - GENE RAL ORDERABLES Final Result Performing Organization Address [facility] Co de Phone Number [facility] [address] [place] [address] * Transfuse Platelets Transfusion Rate: Per dept [...] a Baseline TEG) (10/27/2024 1:51 AM EDT) [facility] Citrated Kaolin Reaction Time (TEGHEPARINASE) 10.6(H) 4.6 - 9.1 minutes 10/27/2024 2:44 AM EDT [facility] Citrated Rapid Teg Maximum Amplitude (TEGHEPARINASE) 42.3(L) 52.0 - 70.0 mm 10/27/2024 2:44 AM EDT [facility] Citrated Functional Fibrinogen Maximum Amplitude (TEGHEPARINASE) 15.0 15.0 - 32.0 mm 10/27/2024 2:44 AM EDT [facility] Citrated Kaolin W/Heparinase Reaction Time (TEGHEPARINASE) 10.5(H) 4.3 - 8.3 minutes 10/27/2024 2:44 AM EDT [facility] Citrated Kaolin K-Time (TEGHEPARINASE) 2.9(A) 0.8 - 2.1 minutes 10/27/2024 2:44 AM EDT [facility] [facility] Citrated Kaolin Angle (TEGHEPARINASE) 60.4(A) 63.0 - 78.0 degrees 10/27/2024 2:44 AM EDT [facility] Citrated Kaolin Maximum Amplitude (TEGHEPARINASE) 42.9(L) 52.0 - 69.0 mm 10/27/2024 2:44 AM EDT [facility] Citrated Functional Fibrinogen- Fibrinogen Level (TEGHEPARINASE) 273.7(L) 278.0 - 581.0 mg/dL 10/27/2024 2:44 AM EDT [facility] Whole Blood (Citrate) 10/27/2024 1:51 AM EDT 10/27/2024 2:03 AM EDT us John Pina MD LAB BLOOD ORDERABLES Final Resu lt Performing Organization Address [facility] Co de Phone Number [facility] [address] * (ABNORMAL) POC Glucose Monitoring Device (10/27/2024 1:50 AM EDT) POC Glucose Monitoring Device 121(H) 70 - 100 mg/dL 10/27/2024 1:51 AM EDT [facility] Blood 10/27/2024 1:50 AM EDT 10/27/2024 1:51 AM EDT us Semaj Mcnair III, MD POINT OF CARE TEST ORDERABLES Final Result Performing Organization Address [facility] de Phone Number [facility] [address] * Transfuse Cryoprecipitate Transfusion Rate: Per dept routine (10/27/2024 1:25 AM EDT) Result Tiburcio Pina MD NURSING TREATMENT ORDERABLES - BLOOD ADMIN Final Result Performing Organization Address [facility] de Phone Number EXTERNAL * Transfuse Cryoprecipitate Transfusion Rate: Per dept routine, 1 Units (10/27/2024 1:25 AM EDT) Result Tiburcio Pina MD NURSING TREATMENT ORDERABLES - BLOOD ADMIN Final Result Performing Organization Address [facility] de Phone Number EXTERNAL * (ABNORMAL) POC Glucose Monitoring Device (10/27/2024 1:21 AM EDT) POC Glucose Monitoring Device 123(H) 70 - 100 mg/dL 10/27/2024 1:22 AM EDT [facility] Blood 10/27/2024 1:21 AM EDT 10/27/2024 1:21 AM EDT Result Tiburcio Mcnair III, MD POINT OF CARE TEST ORDERABLES Final Result Performing Organization Address [facility] Co de Phone Number [facility] [address] * Transfuse Fresh Frozen Plasma Transfusion Rate: Per dept routine (10/27/2024 1:03 AM EDT) us John Pina MD NURSING TREATMENT ORDERABLES - BLOOD ADMIN Final Result Performing Organization Address [facility] de Phone Number EXTERNAL * Transfuse Fresh Frozen Plasma Transfusion Rate: Per dept routine, 1 Units (10/27/2024 1:03 AM EDT) us John Pina MD NURSING TREATMENT ORDERABLES - BLOOD ADMIN Final Result Performing Organization Address [facility] de Phone Number EXTERNAL * Calcium Free, Serum (10/27/2024 12:13 AM EDT) Free Calcium, Ser 5.20 4.40 - 5.40 mg/dL 10/27/2024 12:37 AM EDT [facility] Comment:Free calcium levels vary inversely with pH by approximately 5% for each 0.1 unit of pH change. Assay results have been normalized to pH = 7.40. Serum 10/27/2024 12:1 3 AM EDT 10/27/2024 12:29 AM EDT Narrative [facility] - 10/27/2024 12:37 AM EDT This test has been developed and its performance characteristics determined by [facility] which is certified under the [...] Resu lt Performing Organization Address [facility] Co de Phone Number [facility] [address] * (ABNORMAL) Blood Gas, Arterial, STAT (10/27/2024 12:13 AM EDT) O2 Sat, Arterial 100 10/27/2024 12:23 AM EDT [facility] FIO2 30 10/27/2024 12:23 AM EDT [facility] pH, Arterial 7.32(L) 7.35 - 7.45 10/27/2024 12:23 AM EDT [facility] pCO2, Arterial 37 35 - 45 mm Hg 10/27/2024 12:23 AM EDT [facility] pO2, Arterial 137(H) 80 - 100 mm Hg 10/27/2024 12:23 AM EDT [facility] HCO3, Arterial 20(L) 22 - 26 mmol/L 10/27/2024 12:23 AM EDT [facility] CO2 Content,Arteri al 20(L) 23 - 27 mmol/L 10/27/2024 12:23 AM EDT [facility] Base Excess, Arterial -6.4(L) -2.0 - 3.0 mmol/L 10/27/2024 12:23 AM EDT [facility] %HBO2, Arterial 96.2 95.0 - 98.0 % 10/27/2024 12:23 AM EDT [facility] Carboxyhemoglo bin, Arterial 1.9 % 10/27/2024 12:23 AM EDT [facility] Comment: CARBOXYHEMOGLOBIN (CO) REFERENCE RANGES: Non-Smokers: <2 % Smokers: <8 % TOXIC: >20 % Methemoglobin, Arterial 1.5 0.0 - 1.5 % 10/27/2024 12:23 AM EDT [facility] Reduced hemoglobin, Arterial 0.4 0.0 - 5.0 % 10/27/2024 12:23 AM EDT [facility] Blood, Arterial 10/27/2024 1 2:13 AM EDT 10/27/2024 12:18 AM EDT us John Pina MD LAB BLOOD ORDERABLES Final Resu lt [facility] [address] [facility]. [place] [id number], [facility] * (ABNORMAL) TEG-Bypass/ECMO/Liver HN (Factor function, Platelet/Fibrin Clot Strength w/Clot Breakdown, Heparinase In All Channels) (10/27/2024 12:13 AM EDT) Citrated Kaolin Reaction Time (TEGECMOLIVER) 9.1 4.6 - 9.1 minutes 10/27/2024 1:43 AM EDT [facility] Citrated Kaolin W/Heparinase Reaction Time (TEGECMOLIVER) 9.7(H) 4.3 - 8.3 minutes 10/27/2024 1:43 AM EDT [facility] Citrated Kaolin Maximum Amplitude (TEGECMOLIVER) <40.0(L) 52.0 - 69.0 mm 10/27/2024 1:43 AM EDT [facility] Citrated Functional Fibrinogen W/Heparinase Maximum Amplitude(TEGEC MOLIVER) 11.9(L) 15.0 - 34.0 mm 10/27/2024 1:43 AM EDT [facility] Citrated Rapid Teg W/Heparinase Maximum Amplitude (TEGECMOLIVER) 31.6(L) 53.0 - 69.0 mm 10/27/2024 1:43 AM EDT [facility] Citrated Kaolin w/Heparinase Percent Lysis (TEGECMOLIVER) 0.0 0.0 - 3.2 % 10/27/2024 1:43 AM EDT [facility] Whole Blood (Citrate) 10/27/2024 12:13 AM EDT 10/27/2024 12:18 AM EDT Kemar Sahni MD LAB BLOOD ORDERABLES Final Result Performing Organization Address City/State/[facility] Co de Phone Number [facility] [address] * (ABNORMAL) Lactic Acid (10/27/2024 12:13 AM EDT) Lactate 0.2(L) 0.5 - 2.2 mmol/L 10/27/2024 12:59 AM EDT [facility] Plasma 10/27/2024 12:1 3 AM EDT 10/27/2024 12:31 AM EDT Kemar Sahni MD LAB BLOOD ORDERABLES Final Result [facility] [address]. [address] * Magnesium (10/27/2024 12:13 AM EDT) Magnesium 1.8 1.5 - 2.5 mg/dL 10/27/2024 12:52 AM EDT [facility] Plasma 10/27/2024 12:1 3 AM EDT 10/27/2024 12:29 AM EDT Kemar Sahni MD LAB BLOOD ORDERABLES Final Result Performing Organization Address City/[facility] Co de Phone Number [facility] [address] * (ABNORMAL) Hepatic Function Panel (10/27/2024 12:13 AM EDT) Total Bilirubin 1.6(H) 0.0 - 1.5 mg/dL 10/27/2024 12:52 AM EDT [facility] Bilirubin, Direct 1.17(H) 0.00 - 0.40 mg/dL 10/27/2024 12:52 AM EDT [facility] AST 157(H) 13 - 39 U/L 10/27/2024 12:52 AM EDT [facility] ALT 261(H) 7 - 52 U/L 10/27/2024 12:52 AM EDT [facility] Alkaline Phosphatase 26(L) 36 - 125 U/L 10/27/2024 12:52 AM EDT [facility] Total Protein 3.8(L) 6.4 - 8.9 g/dL 10/27/2024 12:52 AM EDT [facility] Albumin 2.8(L) 3.5 - 5.7 g/dL 10/27/2024 12:52 AM EDT [facility] Bilirubin, Indirect 0.43 0.00 - 1.10 mg/dL 10/27/2024 12:52 AM EDT [facility] Plasma 10/27/2024 12:1 3 AM EDT 10/27/2024 12:29 AM EDT Kemar Sahni MD LAB BLOOD ORDERABLES Final Result Performing Organization Address [facility] Co de Phone Number [facility] [address] * (ABNORMAL) Protime-INR (10/27/2024 12:13 AM EDT) Protime 18.6(H) 12.1 - 15.1 seconds 10/27/2024 12:43 AM EDT [facility] INR 1.5(H) 0.9 - 1.1 10/27/2024 12:43 AM EDT [facility] Comment: RECOMMENDED THERAPEUTIC RANGES USING INR : Stable oral anticoagulant therapy: 2.0 - 3.0 Mechanical prosthetic heart valve: 2.5 - 3.5 Recurrent acute myocardial infarction: 2.5 - 3.5 Plasma 10/27/2024 12:1 3 AM EDT 10/27/2024 12:29 AM EDT Kemar Sahni MD LAB BLOOD ORDERABLES Final Result Performing Organization Address [facility] de Phone Number [facility] [address] * (ABNORMAL) CBC (10/27/2024 12:13 AM EDT) WBC 5.0 3.8 - 10.8 10E3/uL 10/27/2024 12:59 AM EDT [facility] RBC 2.70(L) 4.20 - 5.80 10E6/uL 10/27/2024 12:59 AM EDT [facility] Hemoglobin 8.5(L) 13.2 - 17.1 g/dL 10/27/2024 12:59 AM EDT [facility] Hematocrit 23.9(L) 38.5 - 50.0 % 10/27/2024 12:59 AM EDT [facility] MCV 88.5 80.0 - 100.0 fL 10/27/2024 12:59 AM EDT [facility] MCH 31.5 27.0 - 33.0 pg 10/27/2024 12:59 AM EDT [facility] MCHC 35.6 32.0 - 36.0 g/dL 10/27/2024 12:59 AM EDT [facility] RDW 20.6(H) 11.0 - 15.0 % 10/27/2024 12:59 AM EDT [facility] Platelets 35(L) 140 - 400 10E3/uL 10/27/2024 12:59 AM EDT [facility] Comment: CNV Specimen checked for clots. None detected. MPV 7.6 7.5 - 11.5 fL 10/27/2024 12:59 AM EDT [facility] Whole Blood 10/27/2024 12:1 3 AM EDT 10/27/2024 12:29 AM EDT us Kemar Sahni MD LAB BLOOD ORDERABLES Final Result [facility] [address] * (ABNORMAL) Renal Function Panel w/EGFR (10/27/2024 12:13 AM EDT) Sodium 141 133 - 146 mmol/L 10/27/2024 12:52 AM EDT [facility] Potassium 3.2(L) 3.5 - 5.3 mmol/L 10/27/2024 12:52 AM EDT [facility] Chloride 109 98 - 110 mmol/L 10/27/2024 12:52 AM EDT [facility] CO2 21 21 - 33 mmol/L 10/27/2024 12:52 AM EDT [facility] Anion Gap 11 3 - 16 mmol/L 10/27/2024 12:52 AM EDT [facility] BUN 64(H) 7 - 25 mg/dL 10/27/2024 12:52 AM EDT [facility] Creatinine 2.58(H) 0.60 - 1.30 mg/dL 10/27/2024 12:52 AM EDT [facility] Glucose 126(H) 70 - 100 mg/dL 10/27/2024 12:52 AM EDT [facility] Calcium 8.9 8.6 - 10.3 mg/dL 10/27/2024 12:52 AM EDT [facility] Phosphorus 5.3(H) 2.1 - 4.7 mg/dL 10/27/2024 12:52 AM EDT [facility] Albumin 2.8(L) 3.5 - 5.7 g/dL 10/27/2024 12:52 AM EDT [facility] Osmolality, Calculated 312(H) 278 - 305 mOsm/kg 10/27/2024 12:52 AM EDT [facility] EGFR 31 10/27/2024 12:52 AM EDT [facility] Comment:As [...] Sahni MD LAB BLOOD ORDERABLES Final Result [facility] [address] [place] [address], [facility] * (ABNORMAL) POC Glucose Monitoring Device (10/27/2024 12:08 AM EDT) POC Glucose Monitoring Device 121(H) 70 - 100 mg/dL 10/27/2024 12:08 AM EDT [facility] Blood 10/27/2024 12:0 8 AM EDT 10/27/2024 12:08 AM EDT us Semaj Mcnair III, MD POINT OF CARE TEST ORDERABLES Final Result Performing Organization Address City/[facility]/ZIP Co de Phone Number [facility] [address] * (ABNORMAL) POC Glucose Monitoring Device (10/26/2024 11:15 PM EDT) [facility] POC Glucose Monitoring Device 120(H) 70 - 100 mg/dL 10/26/2024 11:15 PM EDT [facility] Blood 10/26/2024 11:1 5 PM EDT 10/26/2024 11:15 PM EDT us Semaj Mcnair III, MD POINT OF CARE TEST ORDERABLES Final Result Performing Organization Address [facility] de Phone Number [facility] [address] * (ABNORMAL) TEG-Bypass/ECMO/Liver HN (Factor function, Platelet/Fibrin Clot Strength w/Clot Breakdown, Heparinase In All Channels) (10/26/2024 10:36 PM EDT) [facility] Citrated Kaolin Reaction Time (TEGECMOLIVER) 10.0(H) 4.6 - 9.1 minutes 10/26/2024 11:53 PM EDT [facility] Citrated Kaolin W/Heparinase Reaction Time (TEGECMOLIVER) 10.2(H) 4.3 - 8.3 minutes 10/26/2024 11:53 PM EDT [facility] Citrated Kaolin Maximum Amplitude (TEGECMOLIVER) <40.0(L) 52.0 - 69.0 mm 10/26/2024 11:53 PM EDT [facility] Citrated Functional Fibrinogen W/Heparinase Maximum Amplitude(TEGEC MOLIVER) 11.3(L) 15.0 - 34.0 mm 10/26/2024 11:53 PM EDT [facility] Citrated Rapid Teg W/Heparinase Maximum Amplitude (TEGECMOLIVER) 41.8(L) 53.0 - 69.0 mm 10/26/2024 11:53 PM EDT [facility] Citrated Kaolin w/Heparinase Percent Lysis (TEGECMOLIVER) 0.0 0.0 - 3.2 % 10/26/2024 11:53 PM EDT [facility] Whole Blood (Citrate) 10/26/2024 10:36 PM EDT 10/26/2024 10:43 PM EDT Kemar Sahni MD LAB BLOOD ORDERABLES Final Result [facility] [address] [facility]. [address] * (ABNORMAL) POC Glucose Monitoring Device (10/26/2024 10:14 PM EDT) POC Glucose Monitoring Device 124(H) 70 - 100 mg/dL 10/26/2024 11:11 PM EDT [facility] Blood 10/26/2024 10:1 4 PM EDT 10/26/2024 11:11 PM EDT Semaj Mcnair III, MD POINT OF CARE TEST ORDERABLES Final Result Performing Organization Address [facility]/ZIP Co de Phone Number [facility] [address] [facility]. [address] * (ABNORMAL) POC Glucose Monitoring Device (10/26/2024 9:16 PM EDT) POC Glucose Monitoring Device 119(H) 70 - 100 mg/dL 10/26/2024 9:18 PM EDT [facility] Blood 10/26/2024 9:16 PM EDT 10/26/2024 9:18 PM EDT Semaj Mcnair III, MD POINT OF CARE TEST ORDERABLES Final Result [facility] [address] [facility]. [address] * (ABNORMAL) POC Glucose Monitoring Device (10/26/2024 8:05 PM EDT) POC Glucose Monitoring Device 113(H) 70 - 100 mg/dL 10/26/2024 8:06 PM EDT [facility] Blood 10/26/2024 8:05 PM EDT 10/26/2024 8:06 PM EDT Semaj Mcnair III, MD POINT OF CARE TEST ORDERABLES Final Result Performing Organization Address City/[facility]/ZIP Co de Phone Number [facility] [address] * (ABNORMAL) POC Glucose Monitoring Device (10/26/2024 7:02 PM EDT) POC Glucose Monitoring Device 111(H) 70 - 100 mg/dL 10/26/2024 7:03 PM EDT [facility] Blood 10/26/2024 7:02 PM EDT 10/26/2024 7:03 PM EDT Semaj Mcnair III, MD POINT OF CARE TEST ORDERABLES Final Result Performing Organization Address [facility] Co de Phone Number [facility] [address] [facility]. [address] * Transfuse Cryoprecipitate Transfusion Rate: Per dept routine (10/26/2024 6:39 PM EDT) John Pina MD NURSING TREATMENT ORDERABLES - BLOOD ADMIN Final Result EXTERNAL * Transfuse Cryoprecipitate Transfusion Rate: Per dept routine, 1 Units (10/26/2024 6:39 PM EDT) John Pina MD NURSING TREATMENT ORDERABLES - BLOOD ADMIN Final Result Performing Organization Address City/[facility]/ZIP Co de Phone Number EXTERNAL * (ABNORMAL) POC Glucose Monitoring Device (10/26/2024 6:33 PM EDT) POC Glucose Monitoring Device 110(H) 70 - 100 mg/dL 10/26/2024 6:34 PM EDT [facility] Blood 10/26/2024 6:33 PM EDT 10/26/2024 6:34 PM EDT us Semaj Mcnair III, MD POINT OF CARE TEST ORDERABLES Final Result Performing Organization Address City/[facility]/ZIP Co de Phone Number [facility] [address] [facility]. [address] * Transfuse Cryoprecipitate Transfusion Rate: Per dept routine (10/26/2024 6:22 PM EDT) us John Pina MD NURSING TREATMENT ORDERABLES - BLOOD ADMIN Final Result Performing Organization Address City/[facility] Co de Phone Number EXTERNAL * Transfuse Cryoprecipitate Transfusion Rate: Per dept routine, 1 Units (10/26/2024 6:22 PM EDT) us John Pina MD NURSING TREATMENT ORDERABLES - BLOOD ADMIN Final Result Performing Organization Address City/[facility] Co de Phone Number EXTERNAL * (ABNORMAL) POC Glucose Monitoring Device (10/26/2024 6:17 PM EDT) POC Glucose Monitoring Device 104(H) 70 - 100 mg/dL 10/26/2024 6:18 PM EDT [facility] Blood 10/26/2024 6:17 PM EDT 10/26/2024 6:18 PM EDT us Semaj Mcnair III, MD POINT OF CARE TEST ORDERABLES Final Result Performing Organization Address City/[facility] Co de Phone Number [facility] [address] [facility]. [address] * (ABNORMAL) POC Glucose Monitoring Device (10/26/2024 4:58 PM EDT) POC Glucose Monitoring Device 115(H) 70 - 100 mg/dL 10/26/2024 4:59 PM EDT [facility] Blood 10/26/2024 4:58 PM EDT 10/26/2024 4:58 PM EDT Semaj Mcnair III, MD POINT OF CARE TEST ORDERABLES Final Result Performing Organization Address [facility] de Phone Number [facility] [address] [place] [address] * (ABNORMAL) Calcium Free, Serum (10/26/2024 4:42 PM EDT) Free Calcium, Ser 5.67(H) 4.40 - 5.40 mg/dL 10/26/2024 4:55 PM EDT [facility] Comment:Free calcium levels vary inversely with pH by approximately 5% for each 0.1 unit of pH change. Assay results have been normalized to pH = 7.40. Serum 10/26/2024 4:42 PM EDT 10/26/2024 4:47 PM EDT Narrative [facility] - 10/26/2024 4:55 PM EDT This test has been developed and its performance characteristics determined by [facility] which is certified under the [...] Resu lt Performing Organization Address [facility] Co de Phone Number [facility] [address] * Repeat Crossmatch (Recipient Sample) (10/26/2024 4:42 PM EDT) Repeat Cx - Recipient The request and specimen(s) for this test have been received and transported to the [facility] at [address] [place] [address]. The [facility] will report results directly to the client. 10/26/2024 4:49 PM EDT [facility] Whole Blood 10/26/2024 4:42 PM EDT 10/26/2024 4:49 PM EDT Narrative [facility] - 10/26/2024 4:49 PM EDT To be sent to [facility] for Donor UNOS#[id number] cross match with Blair Gilbert Sveta Judge MD LAB BLOOD ORDERABLES Final Resu lt [facility] [address] [facility]. [address] * (ABNORMAL) Lactic Acid (10/26/2024 4:42 PM EDT) Lactate 0.3(L) 0.5 - 2.2 mmol/L 10/26/2024 5:19 PM EDT [facility] Plasma 10/26/2024 4:42 PM EDT 10/26/2024 4:47 PM EDT Kemar Sahni MD LAB BLOOD ORDERABLES Final Result [facility] [address] [facility]. [address] * Magnesium (10/26/2024 4:42 PM EDT) Magnesium 2.0 1.5 - 2.5 mg/dL 10/26/2024 5:24 PM EDT [facility] Plasma 10/26/2024 4:42 PM EDT 10/26/2024 4:47 PM EDT Kemar Sahni MD LAB BLOOD ORDERABLES Final Result [facility] [address] [facility]. [address] * (ABNORMAL) Hepatic Function Panel (10/26/2024 4:42 PM EDT) Total Bilirubin 2.3(H) 0.0 - 1.5 mg/dL 10/26/2024 5:24 PM EDT [facility] Bilirubin, Direct 1.85(H) 0.00 - 0.40 mg/dL 10/26/2024 5:24 PM EDT [facility] AST 374(H) 13 - 39 U/L 10/26/2024 5:24 PM EDT [facility] ALT 458(H) 7 - 52 U/L 10/26/2024 5:24 PM EDT [facility] Alkaline Phosphatase 39 36 - 125 U/L 10/26/2024 5:24 PM EDT [facility] Total Protein 3.8(L) 6.4 - 8.9 g/dL 10/26/2024 5:24 PM EDT [facility] Albumin 3.0(L) 3.5 - 5.7 g/dL 10/26/2024 5:24 PM EDT [facility] Bilirubin, Indirect 0.45 0.00 - 1.10 mg/dL 10/26/2024 5:24 PM EDT [facility] Plasma 10/26/2024 4:42 PM EDT 10/26/2024 4:47 PM EDT Kemar Sahni MD LAB BLOOD ORDERABLES Final Result [facility] [address] * (ABNORMAL) Protime-INR (10/26/2024 4:42 PM EDT) Protime 20.3(H) 12.1 - 15.1 seconds 10/26/2024 5:12 PM EDT [facility] INR 1.7(H) 0.9 - 1.1 10/26/2024 5:12 PM EDT [facility] Comment: RECOMMENDED THERAPEUTIC RANGES USING INR : Stable oral anticoagulant therapy: 2.0 - 3.0 Mechanical prosthetic heart valve: 2.5 - 3.5 Recurrent acute myocardial infarction: 2.5 - 3.5 Plasma 10/26/2024 4:42 PM EDT 10/26/2024 4:47 PM EDT us Kemar Sahni MD LAB BLOOD ORDERABLES Final Result [facility] [address] * (ABNORMAL) CBC (10/26/2024 4:42 PM EDT) WBC 10.0 3.8 - 10.8 10E3/uL 10/26/2024 5:00 PM EDT [facility] RBC 3.44(L) 4.20 - 5.80 10E6/uL 10/26/2024 5:00 PM EDT [facility] Hemoglobin 10.5(L) 13.2 - 17.1 g/dL 10/26/2024 5:00 PM EDT [facility] Hematocrit 30.2(L) 38.5 - 50.0 % 10/26/2024 5:00 PM EDT [facility] MCV 87.7 80.0 - 100.0 fL 10/26/2024 5:00 PM EDT [facility] MCH 30.6 27.0 - 33.0 pg 10/26/2024 5:00 PM EDT [facility] MCHC 34.8 32.0 - 36.0 g/dL 10/26/2024 5:00 PM EDT [facility] RDW 20.1(H) 11.0 - 15.0 % 10/26/2024 5:00 PM EDT [facility] Platelets 48(L) 140 - 400 10E3/uL 10/26/2024 5:00 PM EDT [facility] Comment:Specimen checked for clots. None detected. MPV 7.9 7.5 - 11.5 fL 10/26/2024 5:00 PM EDT [facility] Whole Blood 10/26/2024 4:42 PM EDT 10/26/2024 4:47 PM EDT Kemar Sahni MD LAB BLOOD ORDERABLES Final Result [facility] [address] * (ABNORMAL) Renal Function Panel w/EGFR (10/26/2024 4:42 PM EDT) Sodium 142 133 - 146 mmol/L 10/26/2024 5:24 PM EDT [facility] Potassium 3.3(L) 3.5 - 5.3 mmol/L 10/26/2024 5:24 PM EDT [facility] Chloride 109 98 - 110 mmol/L 10/26/2024 5:24 PM EDT [facility] CO2 23 21 - 33 mmol/L 10/26/2024 5:24 PM EDT [facility] Anion Gap 10 3 - 16 mmol/L 10/26/2024 5:24 PM EDT [facility] BUN 63(H) 7 - 25 mg/dL 10/26/2024 5:24 PM EDT [facility] Creatinine 2.85(H) 0.60 - 1.30 mg/dL 10/26/2024 5:24 PM EDT [facility] Glucose 127(H) 70 - 100 mg/dL 10/26/2024 5:24 PM EDT [facility] Calcium 8.9 8.6 - 10.3 mg/dL 10/26/2024 5:24 PM EDT [facility] Phosphorus 4.4 2.1 - 4.7 mg/dL 10/26/2024 5:24 PM EDT [facility] Albumin 3.0(L) 3.5 - 5.7 g/dL 10/26/2024 5:24 PM EDT [facility] Osmolality, Calculated 314(H) 278 - 305 mOsm/kg 10/26/2024 5:24 PM EDT [facility] EGFR 28 10/26/2024 5:24 PM EDT [facility] [...] Sahni MD LAB BLOOD ORDERABLES Final Result [facility] [address] [facility]. [address] * (ABNORMAL) POC Glucose Monitoring Device (10/26/2024 3:54 PM EDT) POC Glucose Monitoring Device 126(H) 70 - 100 mg/dL 10/26/2024 3:55 PM EDT [facility] Blood 10/26/2024 3:54 PM EDT 10/26/2024 3:55 PM EDT Semaj Mcnair III, MD POINT OF CARE TEST ORDERABLES Final Result Performing Organization Address [facility] de Phone Number [facility] [address] [place] [address]. [address] * (ABNORMAL) POC Glucose Monitoring Device (10/26/2024 3:06 PM EDT) POC Glucose Monitoring Device 144(H) 70 - 100 mg/dL 10/26/2024 3:14 PM EDT [facility] Blood 10/26/2024 3:06 PM EDT 10/26/2024 3:13 PM EDT Semaj Mcnair III, MD POINT OF CARE TEST ORDERABLES Final Result Performing Organization Address City/[facility] Co de Phone Number [facility] [address] [place] [address]. [address] * (ABNORMAL) TEG-Bypass/ECMO/Liver HN (Factor function, Platelet/Fibrin Clot Strength w/Clot Breakdown, Heparinase In All Channels) (10/26/2024 3:03 PM EDT) [facility] Citrated Kaolin Reaction Time (TEGECMOLIVER) 8.2 4.6 - 9.1 minutes 10/26/2024 4:43 PM EDT [facility] Citrated Kaolin W/Heparinase Reaction Time (TEGECMOLIVER) 8.2 4.3 - 8.3 minutes 10/26/2024 4:43 PM EDT [facility] Citrated Kaolin Maximum Amplitude (TEGECMOLIVER) 41.7(L) 52.0 - 69.0 mm 10/26/2024 4:43 PM EDT [facility] Citrated Functional Fibrinogen W/Heparinase Maximum Amplitude(TEGEC MOLIVER) 11.4(L) 15.0 - 34.0 mm 10/26/2024 4:43 PM EDT [facility] Citrated Rapid Teg W/Heparinase Maximum Amplitude (TEGECMOLIVER) 38.6(L) 53.0 - 69.0 mm 10/26/2024 4:43 PM EDT [facility] Citrated Kaolin w/Heparinase Percent Lysis (TEGECMOLIVER) 0.0 0.0 - 3.2 % 10/26/2024 4:43 PM EDT [facility] Whole Blood (Citrate) 10/26/2024 3:03 PM EDT 10/26/2024 3:10 PM EDT Jani Mooney MD LAB BLOOD ORDERABLES Final Resul t [facility] [address] * ECG 12 lead (MUSE) (10/26/2024 2:19 PM EDT) 10/26/2024 2:19 PM EDT Narrative MUSE - 10/27/2024 10:09 AM EDT Ventricular Rate: 105 BPM Atrial Rate: 105 BPM P-R Interval: 128 ms QRS Duration: 94 ms QT: 474 ms QTc: 626 ms R [place]: -37 degrees T [place]: 35 degrees Diagnosis Line: Critical Test Result: Long QTc ^ SINUS TACHYCARDIA ^ LEFT AXIS DEVIATION, LEFT ANTERIOR HEMIBLOCK ^ PROLONGED QT ^ ABNORMAL ECG ^ ^ Confirmed by MD HA, [facility] ([facility]) on 10/27/2024 10:09:25 AM us Quinten Best MD ECG ORDERABLES Final Result Performing Organization Address [facility]/ZIP Co de Phone Number MUSE * (ABNORMAL) POC Glucose Monitoring Device (10/26/2024 2:00 PM EDT) POC Glucose Monitoring Device 183(H) 70 - 100 mg/dL 10/26/2024 2:01 PM EDT [facility] Blood 10/26/2024 2:00 PM EDT 10/26/2024 2:01 PM EDT Semaj Mcnair III, MD POINT OF CARE TEST ORDERABLES Final Result Performing Organization Address [facility] Co de Phone Number [facility] [address] * (ABNORMAL) POC Glucose Monitoring Device (10/26/2024 1:05 PM EDT) POC Glucose Monitoring Device 212(H) 70 - 100 mg/dL 10/26/2024 1:06 PM EDT [facility] Blood 10/26/2024 1:05 PM EDT 10/26/2024 1:06 PM EDT us Semaj Mcnair III, MD POINT OF CARE TEST ORDERABLES Final Result Performing Organization Address [facility] Co de Phone Number [facility] [address] * Transfuse Cryoprecipitate Has consent been obtained? Yes; Transfusion Rate: Per dept routine (10/26/2024 12:25 PM EDT) Shay Sifuentes MD NURSING TREATMENT ORDERABLES - BLOOD ADMIN Final Result Performing Organization Address City/[facility]/ZIP Co de Phone Number EXTERNAL * Transfuse Cryoprecipitate Has consent been obtained? Yes; Transfusion Rate: Per dept routine, 1 Units (10/26/2024 12:25 PM EDT) Shay Sifuentes MD NURSING TREATMENT ORDERABLES - BLOOD ADMIN Final Result Performing Organization Address [facility] de Phone Number EXTERNAL * (ABNORMAL) POC Glucose Monitoring Device (10/26/2024 12:06 PM EDT) POC Glucose Monitoring Device 226(H) 70 - 100 mg/dL 10/26/2024 12:07 PM EDT [facility] Blood 10/26/2024 12:0 6 PM EDT 10/26/2024 12:07 PM EDT Semaj Mcnair III, MD POINT OF CARE TEST ORDERABLES Final Result Performing Organization Address [facility] de Phone Number [facility] [address] [place] [address] * Transfuse Cryoprecipitate Transfusion Rate: Per dept routine (10/26/2024 12:01 PM EDT) John Pina MD NURSING TREATMENT ORDERABLES - BLOOD ADMIN Final Result Performing Organization Address [facility] de Phone Number EXTERNAL * Transfuse Cryoprecipitate Transfusion Rate: Per dept routine, 1 Units (10/26/2024 12:01 PM EDT) John Pina MD NURSING TREATMENT ORDERABLES - BLOOD ADMIN Final Result Performing Organization Address [facility] de Phone Number EXTERNAL * Lactic Acid (10/26/2024 10:48 AM EDT) Lactate 1.2 0.5 - 2.2 mmol/L 10/26/2024 11:27 AM EDT [facility] Plasma 10/26/2024 10:4 8 AM EDT 10/26/2024 10:53 AM EDT Kemar Sahni MD LAB BLOOD ORDERABLES Final Result Performing Organization Address City/[facility] Co de Phone Number [facility] [address] [facility]. [address] * Magnesium (10/26/2024 10:48 AM EDT) Magnesium 2.0 1.5 - 2.5 mg/dL 10/26/2024 11:26 AM EDT [facility] Plasma 10/26/2024 10:4 8 AM EDT 10/26/2024 10:53 AM EDT us Kemar Sahni MD LAB BLOOD ORDERABLES Final Result [facility] [address] * (ABNORMAL) Hepatic Function Panel (10/26/2024 10:48 AM EDT) Total Bilirubin 5.9(H) 0.0 - 1.5 mg/dL 10/26/2024 11:26 AM EDT [facility] Bilirubin, Direct 4.74(H) 0.00 - 0.40 mg/dL 10/26/2024 11:26 AM EDT [facility] AST 872(H) 13 - 39 U/L 10/26/2024 11:26 AM EDT [facility] ALT 736(H) 7 - 52 U/L 10/26/2024 11:26 AM EDT [facility] Alkaline Phosphatase 56 36 - 125 U/L 10/26/2024 11:26 AM EDT [facility] Total Protein 3.5(L) 6.4 - 8.9 g/dL 10/26/2024 11:26 AM EDT [facility] Albumin 2.5(L) 3.5 - 5.7 g/dL 10/26/2024 11:26 AM EDT [facility] Bilirubin, Indirect 1.16(H) 0.00 - 1.10 mg/dL 10/26/2024 11:26 AM EDT [facility] Plasma 10/26/2024 10:4 8 AM EDT 10/26/2024 10:53 AM EDT Kemar Sahni MD LAB BLOOD ORDERABLES Final Result Performing Organization Address [facility] Co de Phone Number [facility] [address] * (ABNORMAL) Protime-INR (10/26/2024 10:48 AM EDT) Protime 23.0(H) 12.1 - 15.1 seconds 10/26/2024 11:26 AM EDT [facility] INR 2.0(H) 0.9 - 1.1 10/26/2024 11:26 AM EDT [facility] Comment: RECOMMENDED THERAPEUTIC RANGES USING INR : Stable oral anticoagulant therapy: 2.0 - 3.0 Mechanical prosthetic heart valve: 2.5 - 3.5 Recurrent acute myocardial infarction: 2.5 - 3.5 Plasma 10/26/2024 10:4 8 AM EDT 10/26/2024 10:53 AM EDT Kemar Sahni MD LAB BLOOD ORDERABLES Final Result Performing Organization Address [facility] Co de Phone Number [facility] [address] [facility]. [address] * (ABNORMAL) CBC (10/26/2024 10:48 AM EDT) WBC 17.3(H) 3.8 - 10.8 10E3/uL 10/26/2024 11:14 AM EDT [facility] RBC 4.22 4.20 - 5.80 10E6/uL 10/26/2024 11:14 AM EDT [facility] Hemoglobin 12.8(L) 13.2 - 17.1 g/dL 10/26/2024 11:14 AM EDT [facility] Hematocrit 37.2(L) 38.5 - 50.0 % 10/26/2024 11:14 AM EDT [facility] MCV 88.3 80.0 - 100.0 fL 10/26/2024 11:14 AM EDT [facility] MCH 30.4 27.0 - 33.0 pg 10/26/2024 11:14 AM EDT [facility] MCHC 34.4 32.0 - 36.0 g/dL 10/26/2024 11:14 AM EDT [facility] RDW 20.8(H) 11.0 - 15.0 % 10/26/2024 11:14 AM EDT [facility] Platelets 109(L) 140 - 400 10E3/uL 10/26/2024 11:14 AM EDT [facility] MPV 7.5 7.5 - 11.5 fL 10/26/2024 11:14 AM EDT [facility] Whole Blood 10/26/2024 10:4 8 AM EDT 10/26/2024 10:53 AM EDT Kemar Sahni MD LAB BLOOD ORDERABLES Final Result Performing Organization Address City/State/[facility] Co de Phone Number [facility] [address] * (ABNORMAL) Blood gas, arterial (10/26/2024 10:48 AM EDT) O2 Sat, Arterial 97 10/26/2024 10:54 AM EDT [facility] FIO2 35% 10/26/2024 10:54 AM EDT [facility] pH, Arterial 7.37 7.35 - 7.45 10/26/2024 10:54 AM EDT [facility] pCO2, Arterial 36 35 - 45 mm Hg 10/26/2024 10:54 AM EDT [facility] pO2, Arterial 91 80 - 100 mm Hg 10/26/2024 10:54 AM EDT [facility] HCO3, Arterial 22 22 - 26 mmol/L 10/26/2024 10:54 AM EDT [facility] CO2 Content,Arteri al 22(L) 23 - 27 mmol/L 10/26/2024 10:54 AM EDT [facility] Base Excess, Arterial -3.9(L) -2.0 - 3.0 mmol/L 10/26/2024 10:54 AM EDT [facility] %HBO2, Arterial 94.8(L) 95.0 - 98.0 % 10/26/2024 10:54 AM EDT [facility] Carboxyhemoglo bin, Arterial 1.9 % 10/26/2024 10:54 AM EDT [facility] Comment: CARBOXYHEMOGLOBIN (CO) REFERENCE RANGES: Non-Smokers: <2 % Smokers: <8 % TOXIC: >20 % Methemoglobin, Arterial 0.7 0.0 - 1.5 % 10/26/2024 10:54 AM EDT [facility] Reduced hemoglobin, Arterial 2.5 0.0 - 5.0 % 10/26/2024 10:54 AM EDT [facility] Blood, Arterial 10/26/2024 1 0:48 AM EDT 10/26/2024 10:52 AM EDT us Shay Sifuentes MD LAB BLOOD ORDERABLES Final Resu lt [facility] [address] [place] [address], [facility] * (ABNORMAL) Renal Function Panel w/EGFR (10/26/2024 10:48 AM EDT) Sodium 139 133 - 146 mmol/L 10/26/2024 11:26 AM EDT [facility] Potassium 2.9(LL) 3.5 - 5.3 mmol/L 10/26/2024 11:26 AM EDT [facility] Comment:K CRITICAL VALUE WAS PREVIOUSLY CALLED Chloride 107 98 - 110 mmol/L 10/26/2024 11:26 AM EDT [facility] CO2 22 21 - 33 mmol/L 10/26/2024 11:26 AM EDT [facility] Anion Gap 10 3 - 16 mmol/L 10/26/2024 11:26 AM EDT [facility] BUN 61(H) 7 - 25 mg/dL 10/26/2024 11:26 AM EDT [facility] Creatinine 2.78(H) 0.60 - 1.30 mg/dL 10/26/2024 11:26 AM EDT [facility] Glucose 253(H) 70 - 100 mg/dL 10/26/2024 11:26 AM EDT [facility] Calcium 8.8 8.6 - 10.3 mg/dL 10/26/2024 11:26 AM EDT [facility] Phosphorus 4.1 2.1 - 4.7 mg/dL 10/26/2024 11:26 AM EDT [facility] Albumin 2.5(L) 3.5 - 5.7 g/dL 10/26/2024 11:26 AM EDT [facility] Osmolality, Calculated 314(H) 278 - 305 mOsm/kg 10/26/2024 11:26 AM EDT [facility] EGFR 28 10/26/2024 11:26 AM EDT [facility] Comment:As [...] will be reported as >90mL/min/1.73m2. Reference: Luis Eduarod C, Talia M, Olivia DC, Emerita ND, Madelyn [place], Felicia [place], et al. A Unifying Approach for GFR Estimation: Recommendations of the NKF-ASN Task Force on Reassessing the inclusion of Race in Diagnosing Kidney Disease. Am J Kidney Dis. 2020. Plasma 10/26/2024 10:4 8 AM EDT 10/26/2024 10:53 AM EDT Kemar Sahni MD LAB BLOOD ORDERABLES Final Result [facility] [address] [place] [id number] * (ABNORMAL) POC Glucose Monitoring Device (10/26/2024 10:47 AM EDT) POC Glucose Monitoring Device 234(H) 70 - 100 mg/dL 10/26/2024 10:48 AM EDT [facility] Blood 10/26/2024 10:4 7 AM EDT 10/26/2024 10:48 AM EDT us Semaj Mcnair III, MD POINT OF CARE TEST ORDERABLES Final Result Performing Organization Address City/[facility]/ZIP Co de Phone Number [facility] [address] * CARISA Rhythm Strip - Scan (10/26/2024 10:45 AM EDT) us Scanning Uchhim SCAN DOCS - NO RESULTS Final Res ult * (ABNORMAL) POC Glucose Monitoring Device (10/26/2024 10:08 AM EDT) POC Glucose Monitoring Device 235(H) 70 - 100 mg/dL 10/26/2024 10:09 AM EDT [facility] Blood 10/26/2024 10:0 8 AM EDT 10/26/2024 10:09 AM EDT us Semaj Mcnair III, MD POINT OF CARE TEST ORDERABLES Final Result Performing Organization Address [facility]/ZIP Co de Phone Number [facility] [address] [facility]. [address] * (ABNORMAL) POC Glucose Monitoring Device (10/26/2024 8:57 AM EDT) POC Glucose Monitoring Device 232(H) 70 - 100 mg/dL 10/26/2024 8:59 AM EDT [facility] Blood 10/26/2024 8:57 AM EDT 10/26/2024 8:58 AM EDT us Semaj Mcnair III, MD POINT OF CARE TEST ORDERABLES Final Result [facility] [address] [facility]. [address] * ECG 12 lead (MUSE) (10/26/2024 8:16 AM EDT) 10/26/2024 8:16 AM EDT Narrative MUSE - 10/27/2024 10:09 AM EDT Ventricular Rate: 112 BPM QRS Duration: 96 ms QT: 452 ms QTc: 616 ms R [place]: -41 degrees T [place]: 40 degrees Diagnosis Line: Critical Test Result: [...] Glucose Monitoring Device (10/26/2024 7:59 AM EDT) [facility] POC Glucose Monitoring Device 229(H) 70 - 100 mg/dL 10/26/2024 8:01 AM EDT [facility] Blood 10/26/2024 7:59 AM EDT 10/26/2024 8:00 AM EDT Semaj Mcnair III, MD POINT OF CARE TEST ORDERABLES Final Result [facility] [address] * (ABNORMAL) TEG-Bypass/ECMO/Liver HN (Factor function, Platelet/Fibrin Clot Strength w/Clot Breakdown, Heparinase In All Channels) (10/26/2024 7:59 AM EDT) [facility] Citrated Kaolin Reaction Time (TEGECMOLIVER) 8.2 4.6 - 9.1 minutes 10/26/2024 10:36 AM EDT [facility] Citrated Kaolin W/Heparinase Reaction Time (TEGECMOLIVER) 8.1 4.3 - 8.3 minutes 10/26/2024 10:36 AM EDT [facility] Citrated Kaolin Maximum Amplitude (TEGECMOLIVER) 46.8(L) 52.0 - 69.0 mm 10/26/2024 10:36 AM EDT [facility] Citrated Functional Fibrinogen W/Heparinase Maximum Amplitude(TEGEC MOLIVER) 10.5(L) 15.0 - 34.0 mm 10/26/2024 10:36 AM EDT [facility] Citrated Rapid Teg W/Heparinase Maximum Amplitude (TEGECMOLIVER) 45.5(L) 53.0 - 69.0 mm 10/26/2024 10:36 AM EDT [facility] Citrated Kaolin w/Heparinase Percent Lysis (TEGECMOLIVER) 0.0 0.0 - 3.2 % 10/26/2024 10:36 AM EDT [facility] Whole Blood (Citrate) 10/26/2024 7:59 AM EDT 10/26/2024 8:05 AM EDT Shay Sifuentes MD LAB BLOOD ORDERABLES Final Resu lt Performing Organization Address City/[facility]/ZIP Co de Phone Number [facility] [address] [facility]. [address] * (ABNORMAL) POC Glucose Monitoring Device (10/26/2024 6:12 AM EDT) POC Glucose Monitoring Device 196(H) 70 - 100 mg/dL 10/26/2024 6:13 AM EDT [facility] Blood 10/26/2024 6:12 AM EDT 10/26/2024 6:13 AM EDT Semaj Mcnair III, MD POINT OF CARE TEST ORDERABLES Final Result Performing Organization Address [facility] Co de Phone Number [facility] [address] [facility]. [address] * Lactic Acid (10/26/2024 6:10 AM EDT) Lactate 1.2 0.5 - 2.2 mmol/L 10/26/2024 6:39 AM EDT [facility] Plasma 10/26/2024 6:10 AM EDT 10/26/2024 6:19 AM EDT Sveta Judge MD LAB BLOOD ORDERABLES Final Resu lt Performing Organization Address [facility]/ZIP Co de Phone Number [facility] [address] [facility]. [address] * (ABNORMAL) Fibrinogen (10/26/2024 6:10 AM EDT) Fibrinogen 160(L) 218 - 406 mg/dL 10/26/2024 6:41 AM EDT [facility] Plasma 10/26/2024 6:10 AM EDT 10/26/2024 6:26 AM EDT Sveta Judge MD LAB BLOOD ORDERABLES Final Resu lt Performing Organization Address [facility] de Phone Number [facility] [address] * (ABNORMAL) Protime-INR (10/26/2024 6:10 AM EDT) Protime 25.0(H) 12.1 - 15.1 seconds 10/26/2024 6:41 AM EDT [facility] INR 2.2(H) 0.9 - 1.1 10/26/2024 6:41 AM EDT [facility] Comment: RECOMMENDED THERAPEUTIC RANGES USING INR : Stable oral anticoagulant therapy: 2.0 - 3.0 Mechanical prosthetic heart valve: 2.5 - 3.5 Recurrent acute myocardial infarction: 2.5 - 3.5 Plasma 10/26/2024 6:10 AM EDT 10/26/2024 6:26 AM EDT Sveta Judge MD LAB BLOOD ORDERABLES Final Resu lt Performing Organization Address [facility] de Phone Number [facility] [address] [facility]. [address] * (ABNORMAL) Blood gas, arterial (10/26/2024 6:10 AM EDT) O2 Sat, Arterial 98 10/26/2024 6:23 AM EDT [facility] FIO2 60 10/26/2024 6:23 AM EDT [facility] pH, Arterial 7.27(L) 7.35 - 7.45 10/26/2024 6:23 AM EDT [facility] pCO2, Arterial 47(H) 35 - 45 mm Hg 10/26/2024 6:23 AM EDT [facility] pO2, Arterial 127(H) 80 - 100 mm Hg 10/26/2024 6:23 AM EDT [facility] HCO3, Arterial 21(L) 22 - 26 mmol/L 10/26/2024 6:23 AM EDT [facility] CO2 Content,Arteri al 23 23 - 27 mmol/L 10/26/2024 6:23 AM EDT [facility] Base Excess, Arterial -5.4(L) -2.0 - 3.0 mmol/L 10/26/2024 6:23 AM EDT [facility] %HBO2, Arterial 94.6(L) 95.0 - 98.0 % 10/26/2024 6:23 AM EDT [facility] Carboxyhemoglo bin, Arterial 2.0 % 10/26/2024 6:23 AM EDT [facility] Comment: CARBOXYHEMOGLOBIN (CO) REFERENCE RANGES: Non-Smokers: <2 % Smokers: <8 % TOXIC: >20 % Methemoglobin, Arterial 1.6(H) 0.0 - 1.5 % 10/26/2024 6:23 AM EDT [facility] Reduced hemoglobin, Arterial 1.8 0.0 - 5.0 % 10/26/2024 6:23 AM EDT [facility] Blood, Arterial 10/26/2024 6 :10 AM EDT 10/26/2024 6:20 AM EDT Sveta Judge MD LAB BLOOD ORDERABLES Final Resu lt Performing Organization Address [facility] de Phone Number [facility] [address] * Magnesium (10/26/2024 6:10 AM EDT) Magnesium 1.5 1.5 - 2.5 mg/dL 10/26/2024 7:09 AM EDT [facility] Plasma 10/26/2024 6:10 AM EDT 10/26/2024 6:23 AM EDT Sveta Judge MD LAB BLOOD ORDERABLES Final Resu lt [facility] [address] [facility] [place] [address], [facility] * (ABNORMAL) Hepatic Function Panel (10/26/2024 6:10 AM EDT) Total Bilirubin 6.2(H) 0.0 - 1.5 mg/dL 10/26/2024 7:11 AM EDT [facility] Bilirubin, Direct 5.26(H) 0.00 - 0.40 mg/dL 10/26/2024 7:11 AM EDT [facility] AST 1,071(H) 13 - 39 U/L 10/26/2024 7:11 AM EDT [facility] ALT 805(H) 7 - 52 U/L 10/26/2024 7:11 AM EDT [facility] Alkaline Phosphatase 55 36 - 125 U/L 10/26/2024 7:11 AM EDT [facility] Total Protein <3.0(L) 6.4 - 8.9 g/dL 10/26/2024 7:11 AM EDT [facility] Albumin 1.9(L) 3.5 - 5.7 g/dL 10/26/2024 7:11 AM EDT [facility] Bilirubin, Indirect 0.94 0.00 - 1.10 mg/dL 10/26/2024 7:11 AM EDT [facility] Plasma 10/26/2024 6:10 AM EDT 10/26/2024 6:23 AM EDT us Sveta Judge MD LAB BLOOD ORDERABLES Final Resu lt [facility] [address] [facility] [place] [address], [facility] * (ABNORMAL) Renal Function Panel w/EGFR (10/26/2024 6:10 AM EDT) Sodium 141 133 - 146 mmol/L 10/26/2024 7:09 AM EDT [facility] Potassium 2.8(LL) 3.5 - 5.3 mmol/L 10/26/2024 7:09 AM EDT [facility] Comment:Critical value previ ously called. Chloride 106 98 - 110 mmol/L 10/26/2024 7:09 AM EDT [facility] CO2 25 21 - 33 mmol/L 10/26/2024 7:09 AM EDT [facility] Anion Gap 10 3 - 16 mmol/L 10/26/2024 7:09 AM EDT [facility] BUN 57(H) 7 - 25 mg/dL 10/26/2024 7:09 AM EDT [facility] Creatinine 2.70(H) 0.60 - 1.30 mg/dL 10/26/2024 7:09 AM EDT [facility] Glucose 210(H) 70 - 100 mg/dL 10/26/2024 7:09 AM EDT [facility] Calcium 8.7 8.6 - 10.3 mg/dL 10/26/2024 7:09 AM EDT [facility] Phosphorus 5.4(H) 2.1 - 4.7 mg/dL 10/26/2024 7:09 AM EDT [facility] Albumin 1.9(L) 3.5 - 5.7 g/dL 10/26/2024 7:11 AM EDT [facility] Osmolality, Calculated 314(H) 278 - 305 mOsm/kg 10/26/2024 7:09 AM EDT [facility] EGFR 29 10/26/2024 7:09 AM EDT [facility] Comment:As [...] lt [facility] [address] * (ABNORMAL) CBC (10/26/2024 6:10 AM EDT) WBC 14.8(H) 3.8 - 10.8 10E3/uL 10/26/2024 6:46 AM EDT [facility] [facility] RBC 4.04(L) 4.20 - 5.80 10E6/uL 10/26/2024 6:46 AM EDT [facility] Hemoglobin 12.7(L) 13.2 - 17.1 g/dL 10/26/2024 6:46 AM EDT [facility] Hematocrit 35.9(L) 38.5 - 50.0 % 10/26/2024 6:46 AM EDT [facility] MCV 89.0 80.0 - 100.0 fL 10/26/2024 6:46 AM EDT [facility] MCH 31.3 27.0 - 33.0 pg 10/26/2024 6:46 AM EDT [facility] MCHC 35.2 32.0 - 36.0 g/dL 10/26/2024 6:46 AM EDT [facility] RDW 19.7(H) 11.0 - 15.0 % 10/26/2024 6:46 AM EDT [facility] Platelets 107(L) 140 - 400 10E3/uL 10/26/2024 6:46 AM EDT [facility] MPV 7.4(L) 7.5 - 11.5 fL 10/26/2024 6:46 AM EDT [facility] Whole Blood 10/26/2024 6:10 AM EDT 10/26/2024 6:26 AM EDT Sveta Judge MD LAB BLOOD ORDERABLES Final Resu lt [facility] [address] * (ABNORMAL) POC INR (10/26/2024 5:16 AM EDT) Prothrombin Time INR, POC 2.4(H) 0.8 - 1.4 10/27/2024 6:51 AM EDT [facility] Comment: Test results may [...] TEST ORDERABLES Final Result Performing Organization Address City/[facility]/ZIP Co de Phone Number [facility] [address] [place] [address]. [address] * POC Sample Type (10/26/2024 5:14 AM EDT) POC Sample Type Arterial 10/26/2024 5:31 AM EDT [facility] Blood, Arterial 10/26/2024 5 :14 AM EDT 10/26/2024 5:31 AM EDT us Semaj Mcnair III, MD POINT OF CARE TEST ORDERABLES Final Result [facility] [address] [place] [address]. [address] * POC Anion Gap (10/26/2024 5:14 AM EDT) POC Anion Gap, Arterial 12 3 - 16 mmol/L 10/26/2024 5:31 AM EDT [facility] Blood, Arterial 10/26/2024 5 :14 AM EDT 10/26/2024 5:31 AM EDT us Semaj Mcnair III, MD POINT OF CARE TEST ORDERABLES Final Result Performing Organization Address [facility] Co de Phone Number [facility] [address] * POC Chloride (10/26/2024 5:14 AM EDT) POC Chloride 104 98 - 110 mmol/L 10/26/2024 5:31 AM EDT [facility] Blood, Arterial 10/26/2024 5 :14 AM EDT 10/26/2024 5:31 AM EDT us Semaj Mcnair III, MD POINT OF CARE TEST ORDERABLES Final Result Performing Organization Address [facility] Co de Phone Number [facility] [address] [facility]. [address] * (ABNORMAL) POC Hemoglobin (10/26/2024 5:14 AM EDT) POC Hemoglobin 9.5(L) 14.0 - 18.0 g/dL 10/26/2024 5:31 AM EDT [facility] Blood, Arterial 10/26/2024 5 :14 AM EDT 10/26/2024 5:31 AM EDT us Semaj Mcnair III, MD POINT OF CARE TEST ORDERABLES Final Result Performing Organization Address [facility] Co de Phone Number [facility] [address] [facility]. [address] * (ABNORMAL) POC hematocrit (10/26/2024 5:14 AM EDT) POC Hematocrit 28.0(L) 40 - 52 % 10/26/2024 5:31 AM EDT [facility] Blood, Arterial 10/26/2024 5 :14 AM EDT 10/26/2024 5:31 AM EDT us Semaj Mcnair III, MD POINT OF CARE TEST ORDERABLES Final Result [facility] [address] * POC Lactate (10/26/2024 5:14 AM EDT) POC Lactate 1.76 0.50 - 2.20 mmol/L 10/26/2024 5:31 AM EDT [facility] Blood, Arterial 10/26/2024 5 :14 AM EDT 10/26/2024 5:31 AM EDT us Semaj Mcnair III, MD POINT OF CARE TEST ORDERABLES Final Result Performing Organization Address [facility] de Phone Number [facility] [address] * (ABNORMAL) POC Glucose (10/26/2024 5:14 AM EDT) POC Glucose, Arterial 183(H) 70 - 100 mg/dL 10/26/2024 5:31 AM EDT [facility] Blood, Arterial 10/26/2024 5 :14 AM EDT 10/26/2024 5:31 AM EDT us Semaj Mcnair III, MD POINT OF CARE TEST ORDERABLES Final Result Performing Organization Address [facility] de Phone Number [facility] [address] [facility]. [address] * (ABNORMAL) POC Ionized Calcium (10/26/2024 5:14 AM EDT) POC Ionized Calcium 5.50(H) 4.50 - 5.30 mg/dL 10/26/2024 5:31 AM EDT [facility] Blood, Arterial 10/26/2024 5 :14 AM EDT 10/26/2024 5:31 AM EDT us Semaj Mcnair III, MD POINT OF CARE TEST ORDERABLES Final Result Performing Organization Address City/[facility] Co de Phone Number [facility] [address] * (ABNORMAL) POC Potassium (10/26/2024 5:14 AM EDT) POC Potassium 2.8(LL) 3.5 - 5.3 mmol/L 10/26/2024 5:31 AM EDT [facility] Blood, Arterial 10/26/2024 5 :14 AM EDT 10/26/2024 5:31 AM EDT us Semaj Mcnair III, MD POINT OF CARE TEST ORDERABLES Final Result Performing Organization Address City/[facility] Co de Phone Number [facility] [address] * POC Sodium (10/26/2024 5:14 AM EDT) POC Sodium 138 136 - 146 mmol/L 10/26/2024 5:31 AM EDT [facility] Blood, Arterial 10/26/2024 5 :14 AM EDT 10/26/2024 5:31 AM EDT us Semaj Mcnair III, MD POINT OF CARE TEST ORDERABLES Final Result Performing Organization Address City/[facility]/ZIP Co de Phone Number [facility] [address] * POC TCO2 (10/26/2024 5:14 AM EDT) POC TCO2, Arterial 23 23 - 27 mmol/L 10/26/2024 5:31 AM EDT [facility] Blood, Arterial 10/26/2024 5 :14 AM EDT 10/26/2024 5:31 AM EDT us Semaj Mcnair III, MD POINT OF CARE TEST ORDERABLES Final Result Performing Organization Address City/[facility]/ZIP Co de Phone Number [facility] [address] * (ABNORMAL) POC O2 SAT (10/26/2024 5:14 AM EDT) POC O2 Saturation, Arterial 99(H) 95 - 98 % 10/26/2024 5:31 AM EDT [facility] Blood, Arterial 10/26/2024 5 :14 AM EDT 10/26/2024 5:31 AM EDT us Semaj Mcnair III, MD POINT OF CARE TEST ORDERABLES Final Result [facility] [address] * (ABNORMAL) POC Base Excess (10/26/2024 5:14 AM EDT) POC Base Excess, Arterial -5(L) -2 - 3 mmol/L 10/26/2024 5:31 AM EDT [facility] Blood, Arterial 10/26/2024 5 :14 AM EDT 10/26/2024 5:31 AM EDT us Semaj Mcnair III, MD POINT OF CARE TEST ORDERABLES Final Result [facility] [address] * POC HCO3 (10/26/2024 5:14 AM EDT) POC HCO3, Arterial 22 22 - 26 mmol/L 10/26/2024 5:31 AM EDT [facility] Blood, Arterial 10/26/2024 5 :14 AM EDT 10/26/2024 5:31 AM EDT us Semaj Mcnair III, MD POINT OF CARE TEST ORDERABLES Final Result [facility] [address] * (ABNORMAL) POC PO2 (10/26/2024 5:14 AM EDT) POC pO2, Arterial 133(H) 80 - 100 mm Hg 10/26/2024 5:31 AM EDT [facility] Blood, Arterial 10/26/2024 5 :14 AM EDT 10/26/2024 5:31 AM EDT us Semaj Mcnair III, MD POINT OF CARE TEST ORDERABLES Final Result Performing Organization Address City/[facility]/ZIP Co de Phone Number [facility] [address] * POC PCO2 (10/26/2024 5:14 AM EDT) POC pCO2, Arterial 45 35 - 45 mm Hg 10/26/2024 5:31 AM EDT [facility] Blood, Arterial 10/26/2024 5 :14 AM EDT 10/26/2024 5:31 AM EDT us Semaj Mcnair III, MD POINT OF CARE TEST ORDERABLES Final Result Performing Organization Address [facility] Co de Phone Number [facility] [address] [facility]. [address] * (ABNORMAL) POC pH (10/26/2024 5:14 AM EDT) POC pH, Arterial 7.29(L) 7.35 - 7.45 10/26/2024 5:31 AM EDT [facility] Blood, Arterial 10/26/2024 5 :14 AM EDT 10/26/2024 5:31 AM EDT us Semaj Mcnair III, MD POINT OF CARE TEST ORDERABLES Final Result Performing Organization Address City/[facility]/ZIP Co de Phone Number [facility] [address] * Transfuse Cryoprecipitate (10/26/2024 4:37 AM EDT) Eber Quinones MD NURSING TREATMENT ORDERA BLES - BLOOD ADMIN Final Result * Transfuse Cryoprecipitate (10/26/2024 4:37 AM EDT) Eber Quinones MD NURSING TREATMENT ORDERA BLES - BLOOD ADMIN Final Result * (ABNORMAL) POC INR (10/26/2024 4:27 AM EDT) Prothrombin Time INR, POC 2.3(H) 0.8 - 1.4 10/27/2024 6:51 AM EDT [facility] Comment: Test results may [...] Final Result Performing Organization Address [facility] Co de Phone Number [facility] [address] [place] [address] * POC Sample Type (10/26/2024 4:24 AM EDT) Pathologist [facility] POC Sample Type Arterial 10/26/2024 5:09 AM EDT [facility] Blood, Arterial 10/26/2024 4 :24 AM EDT 10/26/2024 5:09 AM EDT Semaj Mcnair III, MD POINT OF CARE TEST ORDERABLES Final Result Performing Organization Address [facility] Co de Phone Number [facility] [address] * POC Anion Gap (10/26/2024 4:24 AM EDT) Pathologist [facility] POC Anion Gap, Arterial 14 3 - 16 mmol/L 10/26/2024 5:09 AM EDT [facility] Blood, Arterial 10/26/2024 4 :24 AM EDT 10/26/2024 5:09 AM EDT us Semaj Mcnair III, MD POINT OF CARE TEST ORDERABLES Final Result Performing Organization Address City/[facility]/ZIP Co de Phone Number [facility] [address] [place] [address]. [address] * POC Chloride (10/26/2024 4:24 AM EDT) Pathologist [facility] POC Chloride 103 98 - 110 mmol/L 10/26/2024 5:09 AM EDT [facility] Blood, Arterial 10/26/2024 4 :24 AM EDT 10/26/2024 5:09 AM EDT us Semaj Mcnair III, MD POINT OF CARE TEST ORDERABLES Final Result Performing Organization Address [facility] Co de Phone Number [facility] [address] [place] [address]. [address] * (ABNORMAL) POC Hemoglobin (10/26/2024 4:24 AM EDT) [facility] POC Hemoglobin 10.3(L) 14.0 - 18.0 g/dL 10/26/2024 5:09 AM EDT [facility] Blood, Arterial 10/26/2024 4 :24 AM EDT 10/26/2024 5:09 AM EDT us Semaj Mcnair III, MD POINT OF CARE TEST ORDERABLES Final Result Performing Organization Address City/[facility] Co de Phone Number [facility] [address] [place] [address]. [address] * (ABNORMAL) POC hematocrit (10/26/2024 4:24 AM EDT) [facility] POC Hematocrit 30.0(L) 40 - 52 % 10/26/2024 5:09 AM EDT [facility] Blood, Arterial 10/26/2024 4 :24 AM EDT 10/26/2024 5:09 AM EDT us Semaj Mcnair III, MD POINT OF CARE TEST ORDERABLES Final Result Performing Organization Address City/[facility]/ZIP Co de Phone Number [facility] [address] [facility]. [address] * (ABNORMAL) POC Lactate (10/26/2024 4:24 AM EDT) POC Lactate 2.43(H) 0.50 - 2.20 mmol/L 10/26/2024 5:09 AM EDT [facility] Blood, Arterial 10/26/2024 4 :24 AM EDT 10/26/2024 5:09 AM EDT us Semaj Mcnair III, MD POINT OF CARE TEST ORDERABLES Final Result Performing Organization Address [facility] Co de Phone Number [facility] [address] [facility]. [address] * (ABNORMAL) POC Glucose (10/26/2024 4:24 AM EDT) POC Glucose, Arterial 185(H) 70 - 100 mg/dL 10/26/2024 5:09 AM EDT [facility] Blood, Arterial 10/26/2024 4 :24 AM EDT 10/26/2024 5:09 AM EDT us Semaj Mcnair III, MD POINT OF CARE TEST ORDERABLES Final Result Performing Organization Address City/[facility] Co de Phone Number [facility] [address] [facility]. [address] * POC Ionized Calcium (10/26/2024 4:24 AM EDT) POC Ionized Calcium 5.20 4.50 - 5.30 mg/dL 10/26/2024 5:09 AM EDT [facility] Blood, Arterial 10/26/2024 4 :24 AM EDT 10/26/2024 5:09 AM EDT us Semaj Mcnair III, MD POINT OF CARE TEST ORDERABLES Final Result Performing Organization Address City/[facility]/ZIP Co de Phone Number [facility] [address] [facility]. [address] * (ABNORMAL) POC Potassium (10/26/2024 4:24 AM EDT) POC Potassium 2.8(LL) 3.5 - 5.3 mmol/L 10/26/2024 5:09 AM EDT [facility] Blood, Arterial 10/26/2024 4 :24 AM EDT 10/26/2024 5:09 AM EDT us Semaj Mcnair III, MD POINT OF CARE TEST ORDERABLES Final Result Performing Organization Address [facility] Co de Phone Number [facility] [address] [facility]. [address] * POC Sodium (10/26/2024 4:24 AM EDT) POC Sodium 139 136 - 146 mmol/L 10/26/2024 5:09 AM EDT [facility] Blood, Arterial 10/26/2024 4 :24 AM EDT 10/26/2024 5:09 AM EDT us Semaj Mcnair III, MD POINT OF CARE TEST ORDERABLES Final Result Performing Organization Address City/[facility]/ZIP Co de Phone Number [facility] [address] [facility]. [address] * POC TCO2 (10/26/2024 4:24 AM EDT) POC TCO2, Arterial 23 23 - 27 mmol/L 10/26/2024 5:09 AM EDT [facility] Blood, Arterial 10/26/2024 4 :24 AM EDT 10/26/2024 5:09 AM EDT us Semaj Mcnair III, MD POINT OF CARE TEST ORDERABLES Final Result [facility] [address] * POC O2 SAT (10/26/2024 4:24 AM EDT) POC O2 Saturation, Arterial 96 95 - 98 % 10/26/2024 5:09 AM EDT [facility] Blood, Arterial 10/26/2024 4 :24 AM EDT 10/26/2024 5:09 AM EDT us Semaj Mcnair III, MD POINT OF CARE TEST ORDERABLES Final Result Performing Organization Address [facility] Co de Phone Number [facility] [address] [facility]. [address] * (ABNORMAL) POC Base Excess (10/26/2024 4:24 AM EDT) POC Base Excess, Arterial -5(L) -2 - 3 mmol/L 10/26/2024 5:09 AM EDT [facility] Blood, Arterial 10/26/2024 4 :24 AM EDT 10/26/2024 5:09 AM EDT us Semaj Mcnair III, MD POINT OF CARE TEST ORDERABLES Final Result Performing Organization Address City/[facility]/ZIP Co de Phone Number [facility] [address] [facility]. [address] * POC HCO3 (10/26/2024 4:24 AM EDT) POC HCO3, Arterial 22 22 - 26 mmol/L 10/26/2024 5:09 AM EDT [facility] Blood, Arterial 10/26/2024 4 :24 AM EDT 10/26/2024 5:09 AM EDT us Semaj Mcnair III, MD POINT OF CARE TEST ORDERABLES Final Result Performing Organization Address City/[facility] Co de Phone Number [facility] [address] [facility]. [address] * POC PO2 (10/26/2024 4:24 AM EDT) POC pO2, Arterial 93 80 - 100 mm Hg 10/26/2024 5:09 AM EDT [facility] Blood, Arterial 10/26/2024 4 :24 AM EDT 10/26/2024 5:09 AM EDT Semaj Mcnair III, MD POINT OF CARE TEST ORDERABLES Final Result Performing Organization Address [facility] Co de Phone Number [facility] [address] [place] [address]. [address] * POC PCO2 (10/26/2024 4:24 AM EDT) POC pCO2, Arterial 44 35 - 45 mm Hg 10/26/2024 5:09 AM EDT [facility] Blood, Arterial 10/26/2024 4 :24 AM EDT 10/26/2024 5:09 AM EDT us Semaj Mcnair III, MD POINT OF CARE TEST ORDERABLES Final Result Performing Organization Address City/[facility] Co de Phone Number [facility] [address] Center[facility]. [address] * (ABNORMAL) POC pH (10/26/2024 4:24 AM EDT) POC pH, Arterial 7.30(L) 7.35 - 7.45 10/26/2024 5:09 AM EDT [facility] Blood, Arterial 10/26/2024 4 :24 AM EDT 10/26/2024 5:09 AM EDT Semaj Mcnair III, MD POINT OF CARE TEST ORDERABLES Final Result Performing Organization Address City/[facility] Co de Phone Number [facility] [address] [facility]. [address] * Transfuse Platelets (10/26/2024 4:14 AM EDT) Ben Blake MD NURSING TREATMENT ORDERABLES - BLOOD ADMIN Final Result * Transfuse Fresh Frozen Plasma (10/26/2024 3:47 AM EDT) Ben Blake MD NURSING TREATMENT ORDERABLES - BLOOD ADMIN Final Result * (ABNORMAL) POC INR (10/26/2024 3:34 AM EDT) Prothrombin Time INR, POC 2.8(H) 0.8 - 1.4 10/27/2024 6:51 AM EDT [facility] Comment: Test results may [...] Final Result Performing Organization Address [facility] Co de Phone Number [facility] [address] [facility]. [address] * POC Sample Type (10/26/2024 3:31 AM EDT) POC Sample Type Arterial 10/26/2024 4:11 AM EDT [facility] Blood, Arterial 10/26/2024 3 :31 AM EDT 10/26/2024 4:11 AM EDT Semaj Mcnair III, MD POINT OF CARE TEST ORDERABLES Final Result Performing Organization Address City/[facility] Co de Phone Number [facility] [address] * POC Anion Gap (10/26/2024 3:31 AM EDT) POC Anion Gap, Arterial 15 3 - 16 mmol/L 10/26/2024 4:11 AM EDT [facility] Blood, Arterial 10/26/2024 3 :31 AM EDT 10/26/2024 4:11 AM EDT Semaj Mcnair III, MD POINT OF CARE TEST ORDERABLES Final Result [facility] [address] * POC Chloride (10/26/2024 3:31 AM EDT) POC Chloride 105 98 - 110 mmol/L 10/26/2024 4:11 AM EDT [facility] Blood, Arterial 10/26/2024 3 :31 AM EDT 10/26/2024 4:11 AM EDT Semaj Mcnair III, MD POINT OF CARE TEST ORDERABLES Final Result [facility] [address] * (ABNORMAL) POC Hemoglobin (10/26/2024 3:31 AM EDT) POC Hemoglobin 9.7(L) 14.0 - 18.0 g/dL 10/26/2024 4:11 AM EDT [facility] Blood, Arterial 10/26/2024 3 :31 AM EDT 10/26/2024 4:11 AM EDT us Semaj Mcnair III, MD POINT OF CARE TEST ORDERABLES Final Result [facility] [address] * (ABNORMAL) POC hematocrit (10/26/2024 3:31 AM EDT) POC Hematocrit 29.0(L) 40 - 52 % 10/26/2024 4:11 AM EDT [facility] Blood, Arterial 10/26/2024 3 :31 AM EDT 10/26/2024 4:11 AM EDT us Semaj Mcnair III, MD POINT OF CARE TEST ORDERABLES Final Result [facility] [address] * (ABNORMAL) POC Lactate (10/26/2024 3:31 AM EDT) POC Lactate 3.54(H) 0.50 - 2.20 mmol/L 10/26/2024 4:11 AM EDT [facility] Blood, Arterial 10/26/2024 3 :31 AM EDT 10/26/2024 4:11 AM EDT us Semaj Mcnair III, MD POINT OF CARE TEST ORDERABLES Final Result Performing Organization Address City/[facility]/ZIP Co de Phone Number [facility] [address] * (ABNORMAL) POC Glucose (10/26/2024 3:31 AM EDT) POC Glucose, Arterial 153(H) 70 - 100 mg/dL 10/26/2024 4:11 AM EDT [facility] Blood, Arterial 10/26/2024 3 :31 AM EDT 10/26/2024 4:11 AM EDT us Semaj Mcnair III, MD POINT OF CARE TEST ORDERABLES Final Result [facility] [address] * POC Ionized Calcium (10/26/2024 3:31 AM EDT) POC Ionized Calcium 5.10 4.50 - 5.30 mg/dL 10/26/2024 4:11 AM EDT [facility] Blood, Arterial 10/26/2024 3 :31 AM EDT 10/26/2024 4:11 AM EDT us Semaj Mcnair III, MD POINT OF CARE TEST ORDERABLES Final Result [facility] [address] * (ABNORMAL) POC Potassium (10/26/2024 3:31 AM EDT) POC Potassium 2.6(LL) 3.5 - 5.3 mmol/L 10/26/2024 4:11 AM EDT [facility] Blood, Arterial 10/26/2024 3 :31 AM EDT 10/26/2024 4:11 AM EDT us Semaj Mcnair III, MD POINT OF CARE TEST ORDERABLES Final Result Performing Organization Address City/[facility]/ZIP Co de Phone Number [facility] [address] * POC Sodium (10/26/2024 3:31 AM EDT) POC Sodium 138 136 - 146 mmol/L 10/26/2024 4:11 AM EDT [facility] Blood, Arterial 10/26/2024 3 :31 AM EDT 10/26/2024 4:11 AM EDT us Semaj Mcnair III, MD POINT OF CARE TEST ORDERABLES Final Result Performing Organization Address City/[facility]/ZIP Co de Phone Number [facility] [address] * (ABNORMAL) POC TCO2 (10/26/2024 3:31 AM EDT) POC TCO2, Arterial 19(L) 23 - 27 mmol/L 10/26/2024 4:11 AM EDT [facility] Blood, Arterial 10/26/2024 3 :31 AM EDT 10/26/2024 4:11 AM EDT us Semaj Mcnair III, MD POINT OF CARE TEST ORDERABLES Final Result [facility] [address] * POC O2 SAT (10/26/2024 3:31 AM EDT) POC O2 Saturation, Arterial 97 95 - 98 % 10/26/2024 4:11 AM EDT [facility] Blood, Arterial 10/26/2024 3 :31 AM EDT 10/26/2024 4:11 AM EDT us Semaj Mcnair III, MD POINT OF CARE TEST ORDERABLES Final Result Performing Organization Address City/[facility] Co de Phone Number [facility] [address] [facility]. [address] * (ABNORMAL) POC Base Excess (10/26/2024 3:31 AM EDT) POC Base Excess, Arterial -9(L) -2 - 3 mmol/L 10/26/2024 4:11 AM EDT [facility] Blood, Arterial 10/26/2024 3 :31 AM EDT 10/26/2024 4:11 AM EDT us Semaj Mcnair III, MD POINT OF CARE TEST ORDERABLES Final Result Performing Organization Address City/[facility]/ZIP Co de Phone Number [facility] [address] * (ABNORMAL) POC HCO3 (10/26/2024 3:31 AM EDT) POC HCO3, Arterial 18(L) 22 - 26 mmol/L 10/26/2024 4:11 AM EDT [facility] Blood, Arterial 10/26/2024 3 :31 AM EDT 10/26/2024 4:11 AM EDT us Semaj Mcnair III, MD POINT OF CARE TEST ORDERABLES Final Result Performing Organization Address City/[facility] Co de Phone Number [facility] [address] [facility]. [address] * (ABNORMAL) POC PO2 (10/26/2024 3:31 AM EDT) POC pO2, Arterial 104(H) 80 - 100 mm Hg 10/26/2024 4:11 AM EDT [facility] Blood, Arterial 10/26/2024 3 :31 AM EDT 10/26/2024 4:11 AM EDT us Semaj Mcnair III, MD POINT OF CARE TEST ORDERABLES Final Result Performing Organization Address [facility] Co de Phone Number [facility] [address] [place] [address]. [address] * POC PCO2 (10/26/2024 3:31 AM EDT) POC pCO2, Arterial 42 35 - 45 mm Hg 10/26/2024 4:11 AM EDT [facility] Blood, Arterial 10/26/2024 3 :31 AM EDT 10/26/2024 4:11 AM EDT us Semaj Mcnair III, MD POINT OF CARE TEST ORDERABLES Final Result Performing Organization Address City/[facility] Co de Phone Number [facility] [address] [facility]. [address] * (ABNORMAL) POC pH (10/26/2024 3:31 AM EDT) POC pH, Arterial 7.24(L) 7.35 - 7.45 10/26/2024 4:11 AM EDT [facility] Blood, Arterial 10/26/2024 3 :31 AM EDT 10/26/2024 4:11 AM EDT Semaj Mcnair III, MD POINT OF CARE TEST ORDERABLES Final Result Performing Organization Address [facility]/ZIP Co de Phone Number [facility] [address] [place] [address] * (ABNORMAL) TEG-Global With Lysis (Baseline TEG with LY30, Will NOT Show Heparin Effect) (53:31 AM EDT) [facility] Citrated Kaolin Reaction Time (TEGLYSIS) 6.8 4.6 - 9.1 minutes 10/26/2024 5:02 AM EDT [facility] Citrated Rapid Teg Maximum Amplitude (TEGLYSIS) <40.0(L) 52.0 - 70.0 mm 10/26/2024 5:02 AM EDT [facility] Citrated Functional Fibrinogen Maximum Amplitude (TEGLYSIS) <4.0(L) 15.0 - 32.0 mm 10/26/2024 5:02 AM EDT [facility] Citrated Kaolin Percent Lysis (TEGLYSIS) 1.4 0.0 - 2.6 % 10/26/2024 5:02 AM EDT [facility] Whole Blood (Citrate) 10/26/2024 3:31 AM EDT 10/26/2024 3:40 AM EDT us Eber Quinones MD LAB BLOOD ORDERABLES Fin al Result Performing Organization Address City/[facility]/ZIP Co de Phone Number [facility] [address] [place] [address] * (ABNORMAL) CBC (10/26/2024 3:31 AM EDT) [facility] WBC 9.5 3.8 - 10.8 10E3/uL 10/26/2024 3:48 AM EDT [facility] RBC 3.68(L) 4.20 - 5.80 10E6/uL 10/26/2024 3:48 AM EDT [facility] Hemoglobin 11.5(L) 13.2 - 17.1 g/dL 10/26/2024 3:48 AM EDT [facility] Hematocrit 33.0(L) 38.5 - 50.0 % 10/26/2024 3:48 AM EDT [facility] MCV 89.6 80.0 - 100.0 fL 10/26/2024 3:48 AM EDT [facility] MCH 31.1 27.0 - 33.0 pg 10/26/2024 3:48 AM EDT [facility] MCHC 34.8 32.0 - 36.0 g/dL 10/26/2024 3:48 AM EDT [facility] RDW 19.3(H) 11.0 - 15.0 % 10/26/2024 3:48 AM EDT [facility] Platelets 67(L) 140 - 400 10E3/uL 10/26/2024 3:48 AM EDT [facility] MPV 7.9 7.5 - 11.5 fL 10/26/2024 3:48 AM EDT [facility] Whole Blood 10/26/2024 3:31 AM EDT 10/26/2024 3:40 AM EDT us Eber Quinones MD LAB BLOOD ORDERABLES Fin al Result Performing Organization Address City/State/[facility] Co de Phone Number [facility] [address] * (ABNORMAL) Protime-INR (10/26/2024 3:31 AM EDT) Protime 27.0(H) 12.1 - 15.1 seconds 10/26/2024 3:51 AM EDT [facility] INR 2.4(H) 0.9 - 1.1 10/26/2024 3:51 AM EDT [facility] Comment: RECOMMENDED THERAPEUTIC RANGES USING INR : Stable oral anticoagulant therapy: 2.0 - 3.0 Mechanical prosthetic heart valve: 2.5 - 3.5 Recurrent acute myocardial infarction: 2.5 - 3.5 Plasma 10/26/2024 3:31 AM EDT 10/26/2024 3:40 AM EDT Eber Quinones MD LAB BLOOD ORDERABLES Fin al Result [facility] [address] * (ABNORMAL) Fibrinogen (10/26/2024 3:31 AM EDT) [facility] Fibrinogen 104(L) 218 - 406 mg/dL 10/26/2024 3:56 AM EDT [facility] Plasma 10/26/2024 3:31 AM EDT 10/26/2024 3:40 AM EDT Eber Quinones MD LAB BLOOD ORDERABLES Fin al Result Performing Organization Address [facility] Co de Phone Number [facility] [address] [facility]. [address] * Transfuse Fresh Frozen Plasma (10/26/2024 [...] Plasma (10/26/2024 2:24 AM EDT) Result [facility] Ben Blake MD NURSING TREATMENT ORDERABLES - BLOOD ADMIN Final Result * Transfuse Fresh Frozen Plasma (10/26/2024 2:03 AM EDT) Result [facility] Ben Blake MD NURSING TREATMENT ORDERABLES - BLOOD ADMIN Final Result * Transfuse RBC (10/26/2024 2:01 AM EDT) Result [facility] Ben Blake MD NURSING TREATMENT ORDERABLES - BLOOD ADMIN Final Result * Transfuse RBC (10/26/2024 1:45 AM EDT) Result [facility] Ben Blake MD NURSING TREATMENT ORDERABLES - BLOOD ADMIN Final Result * Transfuse RBC (10/26/2024 1:45 AM EDT) Result [facility] Ben Blake MD NURSING TREATMENT ORDERABLES - BLOOD ADMIN Final Result * (ABNORMAL) POC INR (10/26/2024 1:43 AM EDT) [facility] Prothrombin Time INR, POC 1.9(H) 0.8 [...] 1:43 AM EDT 10/27/2024 6:51 AM EDT Semaj Mcnair III, MD POINT OF CARE TEST ORDERABLES Final Result [facility] [address] [place] [address], [facility] * Transfuse Fresh Frozen Plasma (10/26/2024 1:41 AM EDT) Ben Blake MD NURSING TREATMENT ORDERABLES - BLOOD ADMIN Final Result * Transfuse RBC (10/26/2024 1:40 AM EDT) Ben Blake MD NURSING TREATMENT ORDERABLES - BLOOD ADMIN Final Result * POC Sample Type (10/26/2024 1:40 AM EDT) POC Sample Type Arterial 10/26/2024 2:32 AM EDT [facility] Blood, Arterial 10/26/2024 1 :40 AM EDT 10/26/2024 2:32 AM EDT Semaj Mcnair III, MD POINT OF CARE TEST ORDERABLES Final Result [facility] [address] [facility] [address] * POC Anion Gap (10/26/2024 1:40 AM EDT) POC Anion Gap, Arterial 13 3 - 16 mmol/L 10/26/2024 2:32 AM EDT [facility] Blood, Arterial 10/26/2024 1 :40 AM EDT 10/26/2024 2:32 AM EDT Result [facility] Semaj Mcnair III, MD POINT OF CARE TEST ORDERABLES Final Result Performing Organization Address City/[facility]/ZIP Co de Phone Number [facility] [address] * POC Chloride (10/26/2024 1:40 AM EDT) POC Chloride 104 98 - 110 mmol/L 10/26/2024 2:32 AM EDT [facility] Blood, Arterial 10/26/2024 1 :40 AM EDT 10/26/2024 2:32 AM EDT Semaj Mcnair III, MD POINT OF CARE TEST ORDERABLES Final Result [facility] [address] * (ABNORMAL) POC Hemoglobin (10/26/2024 1:40 AM EDT) Pathologist [facility] POC Hemoglobin 7.4(L) 14.0 - 18.0 g/dL 10/26/2024 2:32 AM EDT [facility] Blood, Arterial 10/26/2024 1 :40 AM EDT 10/26/2024 2:32 AM EDT us Semaj Mcnair III, MD POINT OF CARE TEST ORDERABLES Final Result Performing Organization Address City/[facility]/ZIP Co de Phone Number [facility] [address] [facility]. [address] * (ABNORMAL) POC hematocrit (10/26/2024 1:40 AM EDT) [facility] POC Hematocrit 22.0(L) 40 - 52 % 10/26/2024 2:32 AM EDT [facility] Blood, Arterial 10/26/2024 1 :40 AM EDT 10/26/2024 2:32 AM EDT us Semaj Mcnair III, MD POINT OF CARE TEST ORDERABLES Final Result Performing Organization Address [facility] Co de Phone Number [facility] [address] [facility]. [address] * (ABNORMAL) POC Lactate (10/26/2024 1:40 AM EDT) [facility] POC Lactate 2.30(H) 0.50 - 2.20 mmol/L 10/26/2024 2:32 AM EDT [facility] Blood, Arterial 10/26/2024 1 :40 AM EDT 10/26/2024 2:32 AM EDT us Semaj Mcnair III, MD POINT OF CARE TEST ORDERABLES Final Result Performing Organization Address City/[facility] Co de Phone Number [facility] [address] [facility]. [address] * (ABNORMAL) POC Glucose (10/26/2024 1:40 AM EDT) POC Glucose, Arterial 116(H) 70 - 100 mg/dL 10/26/2024 2:32 AM EDT [facility] Blood, Arterial 10/26/2024 1 :40 AM EDT 10/26/2024 2:32 AM EDT us Semaj Mcnair III, MD POINT OF CARE TEST ORDERABLES Final Result Performing Organization Address City/[facility]/ZIP Co de Phone Number [facility] [address] [facility]. [address] * (ABNORMAL) POC Ionized Calcium (10/26/2024 1:40 AM EDT) [facility] POC Ionized Calcium 4.10(L) 4.50 - 5.30 mg/dL 10/26/2024 2:32 AM EDT [facility] Blood, Arterial 10/26/2024 1 :40 AM EDT 10/26/2024 2:32 AM EDT us Semaj Mcnair III, MD POINT OF CARE TEST ORDERABLES Final Result Performing Organization Address [facility] Co de Phone Number [facility] [address] [facility]. [address] * (ABNORMAL) POC Potassium (10/26/2024 1:40 AM EDT) Pathologist [facility] POC Potassium 2.6(LL) 3.5 - 5.3 mmol/L 10/26/2024 2:32 AM EDT [facility] Blood, Arterial 10/26/2024 1 :40 AM EDT 10/26/2024 2:32 AM EDT us Semaj Mcnair III, MD POINT OF CARE TEST ORDERABLES Final Result Performing Organization Address City/[facility] Co de Phone Number [facility] [address] [facility]. [address] * (ABNORMAL) POC Sodium (10/26/2024 1:40 AM EDT) POC Sodium 135(L) 136 - 146 mmol/L 10/26/2024 2:32 AM EDT [facility] Blood, Arterial 10/26/2024 1 :40 AM EDT 10/26/2024 2:32 AM EDT us Semaj Mcnair III, MD POINT OF CARE TEST ORDERABLES Final Result Performing Organization Address City/[facility]/ZIP Co de Phone Number [facility] [address] [facility]. [address] * (ABNORMAL) POC TCO2 (10/26/2024 1:40 AM EDT) POC TCO2, Arterial 19(L) 23 - 27 mmol/L 10/26/2024 2:32 AM EDT [facility] Blood, Arterial 10/26/2024 1 :40 AM EDT 10/26/2024 2:32 AM EDT us Semaj Mcnair III, MD POINT OF CARE TEST ORDERABLES Final Result Performing Organization Address [facility] Co de Phone Number [facility] [address] [facility]. [address] * (ABNORMAL) POC O2 SAT (10/26/2024 1:40 AM EDT) POC O2 Saturation, Arterial 99(H) 95 - 98 % 10/26/2024 2:32 AM EDT [facility] Blood, Arterial 10/26/2024 1 :40 AM EDT 10/26/2024 2:32 AM EDT us Semaj Mcnair III, MD POINT OF CARE TEST ORDERABLES Final Result Performing Organization Address City/[facility]/ZIP Co de Phone Number [facility] [address] [facility]. [address] * (ABNORMAL) POC Base Excess (10/26/2024 1:40 AM EDT) POC Base Excess, Arterial -7(L) -2 - 3 mmol/L 10/26/2024 2:32 AM EDT [facility] Blood, Arterial 10/26/2024 1 :40 AM EDT 10/26/2024 2:32 AM EDT us Semaj Mcnair III, MD POINT OF CARE TEST ORDERABLES Final Result Performing Organization Address City/[facility] Co de Phone Number [facility] [address] [facility]. [address] * (ABNORMAL) POC HCO3 (10/26/2024 1:40 AM EDT) POC HCO3, Arterial 18(L) 22 - 26 mmol/L 10/26/2024 2:32 AM EDT [facility] Blood, Arterial 10/26/2024 1 :40 AM EDT 10/26/2024 2:32 AM EDT us Semaj Mcnair III, MD POINT OF CARE TEST ORDERABLES Final Result Performing Organization Address [facility] Co de Phone Number [facility] [address] [place] [address]. [address] * (ABNORMAL) POC PO2 (10/26/2024 1:40 AM EDT) POC pO2, Arterial 145(H) 80 - 100 mm Hg 10/26/2024 2:32 AM EDT [facility] Blood, Arterial 10/26/2024 1 :40 AM EDT 10/26/2024 2:32 AM EDT us Semaj Mcnair III, MD POINT OF CARE TEST ORDERABLES Final Result Performing Organization Address City/[facility] Co de Phone Number [facility] [address] [facility]. [address] * (ABNORMAL) POC PCO2 (10/26/2024 1:40 AM EDT) POC pCO2, Arterial 33(L) 35 - 45 mm Hg 10/26/2024 2:32 AM EDT [facility] Blood, Arterial 10/26/2024 1 :40 AM EDT 10/26/2024 2:32 AM EDT us Semaj Mcnair III, MD POINT OF CARE TEST ORDERABLES Final Result Performing Organization Address City/[facility] Co de Phone Number [facility] [address] [facility]. [address] * POC pH (10/26/2024 1:40 AM EDT) POC pH, Arterial 7.35 7.35 - 7.45 10/26/2024 2:32 AM EDT [facility] Blood, Arterial 10/26/2024 1 :40 AM EDT 10/26/2024 2:32 AM EDT us Semaj Mcnair III, MD POINT OF CARE TEST ORDERABLES Final Result Performing Organization Address [facility] de Phone Number [facility] [address] [facility]. [address] * Transfuse Fresh Frozen Plasma (10/26/2024 1:20 AM EDT) us Ben Blake MD NURSING TREATMENT ORDERABLES - BLOOD ADMIN Final Result * Transfuse RBC (10/26/2024 12:56 AM EDT) us Ben Blake MD NURSING TREATMENT ORDERABLES - BLOOD ADMIN Final Result * (ABNORMAL) POC INR (10/26/2024 12:41 AM EDT) Prothrombin Time INR, POC 2.0(H) 0.8 - 1.4 10/27/2024 6:51 AM EDT [facility] Comment: Test results may [...] Final Result [facility] [address] [place] [address]. [address] * POC Sample Type (10/26/2024 12:39 AM EDT) POC Sample Type Arterial 10/26/2024 1:38 AM EDT [facility] Blood, Arterial 10/26/2024 1 2:39 AM EDT 10/26/2024 1:38 AM EDT Semaj Mcnair III, MD POINT OF CARE TEST ORDERABLES Final Result Performing Organization Address City/[facility] Co de Phone Number [facility] [address] Center[facility]. [address] * POC Anion Gap (10/26/2024 12:39 AM EDT) POC Anion Gap, Arterial 13 3 - 16 mmol/L 10/26/2024 1:38 AM EDT [facility] Blood, Arterial 10/26/2024 1 2:39 AM EDT 10/26/2024 1:38 AM EDT Semaj Mcnair III, MD POINT OF CARE TEST ORDERABLES Final Result Performing Organization Address City/State/[facility] Co de Phone Number [facility] [address] [place] [address]. [address] * POC Chloride (10/26/2024 12:39 AM EDT) POC Chloride 103 98 - 110 mmol/L 10/26/2024 1:38 AM EDT [facility] Blood, Arterial 10/26/2024 1 2:39 AM EDT 10/26/2024 1:38 AM EDT us Semaj Mcnair III, MD POINT OF CARE TEST ORDERABLES Final Result Performing Organization Address City/[facility]/ZIP Co de Phone Number [facility] [address] [facility]. [address] * (ABNORMAL) POC Hemoglobin (10/26/2024 12:39 AM EDT) Pathologist [facility] POC Hemoglobin 7.9(L) 14.0 - 18.0 g/dL 10/26/2024 1:38 AM EDT [facility] Blood, Arterial 10/26/2024 1 2:39 AM EDT 10/26/2024 1:38 AM EDT us Semaj Mcnair III, MD POINT OF CARE TEST ORDERABLES Final Result Performing Organization Address [facility] Co de Phone Number [facility] [address] [facility]. [address] * (ABNORMAL) POC hematocrit (10/26/2024 12:39 AM EDT) Pathologist [facility] POC Hematocrit 23.0(L) 40 - 52 % 10/26/2024 1:38 AM EDT [facility] Blood, Arterial 10/26/2024 1 2:39 AM EDT 10/26/2024 1:38 AM EDT us Semaj Mcnair III, MD POINT OF CARE TEST ORDERABLES Final Result Performing Organization Address City/[facility] Co de Phone Number [facility] [address] [facility]. [address] * POC Lactate (10/26/2024 12:39 AM EDT) Pathologist [facility] POC Lactate 1.39 0.50 - 2.20 mmol/L 10/26/2024 1:38 AM EDT [facility] Blood, Arterial 10/26/2024 1 2:39 AM EDT 10/26/2024 1:38 AM EDT Semaj Mcnair III, MD POINT OF CARE TEST ORDERABLES Final Result Performing Organization Address [facility] Co de Phone Number [facility] [address] [facility]. [address] * (ABNORMAL) POC Glucose (10/26/2024 12:39 AM EDT) POC Glucose, Arterial 116(H) 70 - 100 mg/dL 10/26/2024 1:38 AM EDT [facility] Blood, Arterial 10/26/2024 1 2:39 AM EDT 10/26/2024 1:38 AM EDT Semaj Mcnair III, MD POINT OF CARE TEST ORDERABLES Final Result Performing Organization Address [facility] Co de Phone Number [facility] [address] [facility]. [address] * (ABNORMAL) POC Ionized Calcium (10/26/2024 12:39 AM EDT) Pathologist [facility] POC Ionized Calcium 4.30(L) 4.50 - 5.30 mg/dL 10/26/2024 1:38 AM EDT [facility] Blood, Arterial 10/26/2024 1 2:39 AM EDT 10/26/2024 1:38 AM EDT Semaj Mcnair III, MD POINT OF CARE TEST ORDERABLES Final Result Performing Organization Address [facility] Co de Phone Number [facility] [address] [facility]. [address] * (ABNORMAL) POC Potassium (10/26/2024 12:39 AM EDT) POC Potassium 2.4(LL) 3.5 - 5.3 mmol/L 10/26/2024 1:38 AM EDT [facility] Blood, Arterial 10/26/2024 1 2:39 AM EDT 10/26/2024 1:38 AM EDT us Semaj Mcnair III, MD POINT OF CARE TEST ORDERABLES Final Result Performing Organization Address [facility] Co de Phone Number [facility] [address] [facility]. [address] * POC Sodium (10/26/2024 12:39 AM EDT) POC Sodium 136 136 - 146 mmol/L 10/26/2024 1:38 AM EDT [facility] Blood, Arterial 10/26/2024 1 2:39 AM EDT 10/26/2024 1:38 AM EDT us Semaj Mcnair III, MD POINT OF CARE TEST ORDERABLES Final Result Performing Organization Address [facility] Co de Phone Number [facility] [address] [facility]. [address] * (ABNORMAL) POC TCO2 (10/26/2024 12:39 AM EDT) POC TCO2, Arterial 21(L) 23 - 27 mmol/L 10/26/2024 1:38 AM EDT [facility] Blood, Arterial 10/26/2024 1 2:39 AM EDT 10/26/2024 1:38 AM EDT us Semaj Mcnair III, MD POINT OF CARE TEST ORDERABLES Final Result Performing Organization Address City/[facility] Co de Phone Number [facility] [address] [facility]. [address] * POC O2 SAT (10/26/2024 12:39 AM EDT) POC O2 Saturation, Arterial 98 95 - 98 % 10/26/2024 1:38 AM EDT [facility] Blood, Arterial 10/26/2024 1 2:39 AM EDT 10/26/2024 1:38 AM EDT us Semaj Mcnair III, MD POINT OF CARE TEST ORDERABLES Final Result Performing Organization Address [facility] Co de Phone Number [facility] [address]. [address] * (ABNORMAL) POC Base Excess (10/26/2024 12:39 AM EDT) POC Base Excess, Arterial -7(L) -2 - 3 mmol/L 10/26/2024 1:38 AM EDT [facility] Blood, Arterial 10/26/2024 1 2:39 AM EDT 10/26/2024 1:38 AM EDT us Semaj Mcnair III, MD POINT OF CARE TEST ORDERABLES Final Result Performing Organization Address [facility] de Phone Number [facility] [address] Center[facility]. [address] * (ABNORMAL) POC HCO3 (10/26/2024 12:39 AM EDT) POC HCO3, Arterial 20(L) 22 - 26 mmol/L 10/26/2024 1:38 AM EDT [facility] Blood, Arterial 10/26/2024 1 2:39 AM EDT 10/26/2024 1:38 AM EDT us Semaj Mcnair III, MD POINT OF CARE TEST ORDERABLES Final Result Performing Organization Address [facility] Co de Phone Number [facility] [address] [facility]. [address] * (ABNORMAL) POC PO2 (10/26/2024 12:39 AM EDT) POC pO2, Arterial 117(H) 80 - 100 mm Hg 10/26/2024 1:38 AM EDT [facility] Blood, Arterial 10/26/2024 1 2:39 AM EDT 10/26/2024 1:38 AM EDT Result [facility] Semaj Mcnair III, MD POINT OF CARE TEST ORDERABLES Final Result Performing Organization Address [facility] Co de Phone Number [facility] [address] * (ABNORMAL) POC PCO2 (10/26/2024 12:39 AM EDT) POC pCO2, Arterial 46(H) 35 - 45 mm Hg 10/26/2024 1:38 AM EDT [facility] Blood, Arterial 10/26/2024 1 2:39 AM EDT 10/26/2024 1:38 AM EDT Result [facility] Semaj Mcnair III, MD POINT OF CARE TEST ORDERABLES Final Result Performing Organization Address [facility] Co de Phone Number [facility] [address] [facility]. [address] * (ABNORMAL) POC pH (10/26/2024 12:39 AM EDT) POC pH, Arterial 7.24(L) 7.35 - 7.45 10/26/2024 1:38 AM EDT [facility] Blood, Arterial 10/26/2024 1 2:39 AM EDT 10/26/2024 1:38 AM EDT Result [facility] Semaj Mcnair III, MD POINT OF CARE TEST ORDERABLES Final Result Performing Organization Address City/[place] Hospital/[facility] Co de Phone Number [facility] [address] * Transfuse Platelets (10/26/2024 12:37 AM EDT) Result [facility] Ben Blake MD NURSING TREATMENT ORDERABLES - BLOOD ADMIN Final Result * Transfuse RBC (10/26/2024 12:31 AM EDT) Result [facility] Ben Blake MD NURSING TREATMENT [...] AM EDT) Gram Stain Result Cytospin Results: [facility] Gram Stain Result Polymorphonuclear Leukocytes Seen; [facility] Gram Stain Result No Organisms Seen; [facility] Culture Result No Growth After 3 Days [facility] Surgical Swab ABDOMEN / Unknown 12:03 AM EDT Comment:2.) Ascites Anaerobhic culture Fungus culture Routine culture plus stain Narrative [facility] - 10/28/2024 9:38 PM EDT 2.) Ascites Anaerobhic culture Fungus culture Routine culture plus stain 2.) Ascites Semaj Mcnair III, MD MICROBIOLOGY - GENE RAL ORDERABLES Final Result [facility] [address] * Surgical Pathology Exam (10/26/2024 12:00 AM EDT) 10/26/2024 10/27/2024 Narrative [facility] - 10/26/2024 12:00 AM EDT CASE: [id number] PATIENT: BLAIR GILBERT Clinical History: Liver - kidney transplant Pre-Operative Diagnosis: Alcoholic cirrhosis of liver Post-Operative Diagnosis: Alcoholic cirrhosis of liver Specimen(s) Submitted: A. iqugmiut liver CPT Code(s): 16909 X 1; 48017 X 5 Additional Information: FINAL DIAGNOSIS: A. 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 - Negative for neoplasm. - Increased hepatocellular iron deposition (3+; Modified Scheuer). Gall bladder: -Intramucosal and submucosal vascular congestion and hemorrhage. - Negative for dysplasia or malignancy. Gross Description: Received in formalin, labeled Blair Gilbert and iqugmiut liver , is a 2338-gram, hepatectomy specimen [...] discrete masses or other lesions are identified. Business Executive sections are submitted in cassettes [id number] as follows: A1: Hilar margins, en face. [...] signing this report is located at [facility], [address] [place] [address], [place], [address], , CLIA ID: [id number] Result Tiburcio Mcnair III, MD PATHOLOGY/CYTOLOGY ORDERABLES Final Result [facility] * Transfuse Fresh Frozen Plasma (10/25/2024 11:47 PM EDT) us Ben Blake MD NURSING TREATMENT ORDERABLES - BLOOD ADMIN Final Result * Transfuse RBC (10/25/2024 11:45 PM EDT) us Ben Blake MD NURSING TREATMENT ORDERABLES - BLOOD ADMIN Final Result * Transfuse RBC (10/25/2024 11:45 PM EDT) us Ben Blaek MD NURSING TREATMENT ORDERABLES - BLOOD ADMIN [...] 3 PM EDT 10/27/2024 6:51 AM EDT Result Tiburcio Mcnair III, MD POINT OF CARE TEST ORDERABLES Final Result [facility] [address] [place] [address] * POC Sample Type (10/25/2024 11:40 PM EDT) POC Sample Type Arterial 10/25/2024 11:57 PM EDT [facility] Blood, Arterial 10/25/2024 1 1:40 PM EDT 10/25/2024 11:57 PM EDT us Semaj Mcnair III, MD POINT OF CARE TEST ORDERABLES Final Result Performing Organization Address City/[facility]/ZIP Co de Phone Number [facility] [address] * POC Anion Gap (10/25/2024 11:40 PM EDT) POC Anion Gap, Arterial 13 3 - 16 mmol/L 10/25/2024 11:57 PM EDT [facility] Blood, Arterial 10/25/2024 1 1:40 PM EDT 10/25/2024 11:57 PM EDT us Semaj Mcnair III, MD POINT OF CARE TEST ORDERABLES Final Result Performing Organization Address [facility] Co de Phone Number [facility] [address] [facility]. [address] * POC Chloride (10/25/2024 11:40 PM EDT) Pathologist [facility] POC Chloride 102 98 - 110 mmol/L 10/25/2024 11:57 PM EDT [facility] Blood, Arterial 10/25/2024 1 1:40 PM EDT 10/25/2024 11:57 PM EDT Semaj Mcnair III, MD POINT OF CARE TEST ORDERABLES Final Result Performing Organization Address City/[facility] Co de Phone Number [facility] [address] * (ABNORMAL) POC Hemoglobin (10/25/2024 11:40 PM EDT) Pathologist [facility] POC Hemoglobin 6.6(L) 14.0 - 18.0 g/dL 10/25/2024 11:57 PM EDT [facility] Blood, Arterial 10/25/2024 1 1:40 PM EDT 10/25/2024 11:57 PM EDT us Semaj Mcnair III, MD POINT OF CARE TEST ORDERABLES Final Result Performing Organization Address [facility] Co de Phone Number [facility] [address]. [address] * (ABNORMAL) POC hematocrit (10/25/2024 11:40 PM EDT) Pathologist [facility] POC Hematocrit 19.0(L) 40 - 52 % 10/25/2024 11:57 PM EDT [facility] Blood, Arterial 10/25/2024 1 1:40 PM EDT 10/25/2024 11:57 PM EDT Semaj Mcnair III, MD POINT OF CARE TEST ORDERABLES Final Result Performing Organization Address [facility] Co de Phone Number [facility] [address] * POC Lactate (10/25/2024 11:40 PM EDT) Pathologist [facility] POC Lactate 1.36 0.50 - 2.20 mmol/L 10/25/2024 11:57 PM EDT [facility] Blood, Arterial 10/25/2024 1 1:40 PM EDT 10/25/2024 11:57 PM EDT Semaj Mcnair III, MD POINT OF CARE TEST ORDERABLES Final Result Performing Organization Address [facility] Co de Phone Number [facility] [address] * (ABNORMAL) POC Glucose (10/25/2024 11:40 PM EDT) POC Glucose, Arterial 101(H) 70 - 100 mg/dL 10/25/2024 11:57 PM EDT [facility] Blood, Arterial 10/25/2024 1 1:40 PM EDT 10/25/2024 11:57 PM EDT Semaj Mcnair III, MD POINT OF CARE TEST ORDERABLES Final Result Performing Organization Address [facility] Co de Phone Number [facility] [address] * POC Ionized Calcium (10/25/2024 11:40 PM EDT) POC Ionized Calcium 4.50 4.50 - 5.30 mg/dL 10/25/2024 11:57 PM EDT [facility] Blood, Arterial 10/25/2024 1 1:40 PM EDT 10/25/2024 11:57 PM EDT Semaj Mcnair III, MD POINT OF CARE TEST ORDERABLES Final Result Performing Organization Address [facility] Co de Phone Number [facility] [address] * (ABNORMAL) POC Potassium (10/25/2024 11:40 PM EDT) POC Potassium 1.9(LL) 3.5 - 5.3 mmol/L 10/25/2024 11:57 PM EDT [facility] Blood, Arterial 10/25/2024 1 1:40 PM EDT 10/25/2024 11:57 PM EDT Semaj Mcnair III, MD POINT OF CARE TEST ORDERABLES Final Result Performing Organization Address [facility] Co de Phone Number [facility] [address] * (ABNORMAL) POC Sodium (10/25/2024 11:40 PM EDT) POC Sodium 135(L) 136 - 146 mmol/L 10/25/2024 11:57 PM EDT [facility] Blood, Arterial 10/25/2024 1 1:40 PM EDT 10/25/2024 11:57 PM EDT Semaj Mcnair III, MD POINT OF CARE TEST ORDERABLES Final Result Performing Organization Address City/[facility] Co de Phone Number [facility] [address] * (ABNORMAL) POC TCO2 (10/25/2024 11:40 PM EDT) POC TCO2, Arterial 21(L) 23 - 27 mmol/L 10/25/2024 11:57 PM EDT [facility] Blood, Arterial 10/25/2024 1 1:40 PM EDT 10/25/2024 11:57 PM EDT Semaj Mcnair III, MD POINT OF CARE TEST ORDERABLES Final Result Performing Organization Address [facility] Co de Phone Number [facility] 318[facility] Center[facility]. [address] * POC O2 SAT (10/25/2024 11:40 PM EDT) POC O2 Saturation, Arterial 98 95 - 98 % 10/25/2024 11:57 PM EDT [facility] Blood, Arterial 10/25/2024 1 1:40 PM EDT 10/25/2024 11:57 PM EDT Semaj Mcnair III, MD POINT OF CARE TEST ORDERABLES Final Result Performing Organization Address City/[facility] Co de Phone Number [place] [address] [address] [facility]. [address] * (ABNORMAL) POC Base Excess (10/25/2024 11:40 PM EDT) POC Base Excess, Arterial -6(L) -2 - 3 mmol/L 10/25/2024 11:57 PM EDT [facility] Blood, Arterial 10/25/2024 1 1:40 PM EDT 10/25/2024 11:57 PM EDT Semaj Mcnair III, MD POINT OF CARE TEST ORDERABLES Final Result [facility] [address] [place] [address]. [address] * (ABNORMAL) POC HCO3 (10/25/2024 11:40 PM EDT) POC HCO3, Arterial 20(L) 22 - 26 mmol/L 10/25/2024 11:57 PM EDT [facility] Blood, Arterial 10/25/2024 1 1:40 PM EDT 10/25/2024 11:57 PM EDT Semaj Mcnair III, MD POINT OF CARE TEST ORDERABLES Final Result Performing Organization Address [facility] Co de Phone Number [address] * (ABNORMAL) POC PO2 (10/25/2024 11:40 PM EDT) POC pO2, Arterial 107(H) 80 - 100 mm Hg 10/25/2024 11:57 PM EDT [facility] Blood, Arterial 10/25/2024 1 1:40 PM EDT 10/25/2024 11:57 PM EDT Semaj Mcnair III, MD POINT OF CARE TEST ORDERABLES Final Result Performing Organization Address City/[facility]/ZIP Co de Phone Number [facility] 318[facility] CenterT[facility]. [address] * POC PCO2 (10/25/2024 11:40 PM EDT) POC pCO2, Arterial 41 35 - 45 mm Hg 10/25/2024 11:57 PM EDT [facility] Blood, Arterial 10/25/2024 1 1:40 PM EDT 10/25/2024 11:57 PM EDT Semaj Mcnair III, MD POINT OF CARE TEST ORDERABLES Final Result Performing Organization Address [facility] Co de Phone Number [facility] [address] * (ABNORMAL) POC pH (10/25/2024 11:40 PM EDT) POC pH, Arterial 7.29(L) 7.35 - 7.45 10/25/2024 11:57 PM EDT [facility] Blood, Arterial 10/25/2024 1 1:40 PM EDT 10/25/2024 11:57 PM EDT Semaj Mcnair III, MD POINT OF CARE TEST ORDERABLES Final Result Performing Organization Address [facility] Co de Phone Number [facility] [address] * Urine culture (10/25/2024 11:08 PM EDT) Culture Result <1,000 cfu/mL [facility] Culture Result Skin/Urogeni rony Mckayla. No Further Workup. [facility] Newly Placed Berkowitz Urine URINE SPECIMEN / Unknown 10/25/2024 11:08 PM EDT Comment:urine culture Narrative [facility] - 10/28/2024 9:59 AM EDT urine culture urine culture Semaj Mcnair III, MD MICROBIOLOGY - GENE RAL ORDERABLES Final Result Performing Organization Address City/[facility] Co de Phone Number [facility] [address] * X-ray Portable Chest (10/25/2024 10:19 [...] - 2.2 mmol/L 10/25/2024 10:39 PM EDT [facility] Plasma 10/25/2024 10:1 7 PM EDT 10/25/2024 10:17 PM EDT Ben Blake MD LAB BLOOD ORDERABLES Final Re sult [facility] [address] [facility]. [address] * (ABNORMAL) Ferritin (10/25/2024 10:17 PM EDT) Ferritin 623.2(H) 23.9 - 336.2 ng/mL 10/25/2024 11:02 PM EDT [facility] Serum 10/25/2024 10:1 7 PM EDT 10/25/2024 10:17 PM EDT Leandra Og MD LAB BLOOD ORDERABLES F inal Result Performing Organization Address City/[facility]/ZIP Co de Phone Number [facility] [address] [facility]. [address] * Iron Studies (Iron + TIBC) (10/25/2024 10:17 PM EDT) Iron 128 50 - 212 ug/dL 10/25/2024 10:44 PM EDT [facility] % Iron Saturation SEE COMMENT 15.0 - 55.0 % 10/25/2024 10:44 PM EDT [facility] Comment:Unable to calculate result because contributing result outside reportable range.. TIBC SEE COMMENT 261 - 462 ug/dL 10/25/2024 10:44 PM EDT [facility] Comment:Unable to calculate result because contributing result outside reportable range.. Serum 10/25/2024 10:1 7 PM EDT 10/25/2024 10:17 PM EDT Leandra Og MD LAB BLOOD ORDERABLES F inal Result [facility] [address] [facility]. [address] * PTH (10/25/2024 10:17 PM EDT) PTH 36.0 12.0 - 88.0 pg/mL 10/25/2024 11:01 PM EDT [facility] Serum 10/25/2024 10:1 7 PM EDT 10/25/2024 10:17 PM EDT us Leandra Og MD LAB BLOOD ORDERABLES F inal Result [facility] [address] * HIV 1+2 Antibody/Antigen with Reflex (10/25/2024 10:17 PM EDT) HIV 1+2 AB/AGN Nonreactive Nonreactive 10/25/2024 11:03 PM EDT [facility] Serum 10/25/2024 10:1 7 PM EDT 10/25/2024 10:16 PM EDT Narrative [facility] - 10/25/2024 11:03 PM EDT \HIVRNR us Leandra Og MD LAB BLOOD ORDERABLES F inal Result [facility] [address] * Hepatitis B Core Antibody (10/25/2024 10:17 PM EDT) Hep B Core Total Ab Nonreactive Nonreactive 10/25/2024 11:07 PM EDT [facility] Comment:Health Department no tified [...] MD LAB BLOOD ORDERABLES F inal Result [facility] [address] [facility]. [address] * Hepatitis C Antibody (10/25/2024 10:17 PM EDT) HCV Ab Nonreactive Nonreactive 10/25/2024 11:16 PM EDT [facility] Comment:Health Department no tified in accordance with reportable infectious disease guidelines. Serum 10/25/2024 10:1 7 PM EDT 10/25/2024 10:17 PM EDT Narrative [facility] - 10/25/2024 11:16 PM EDT Antibodies to HCV not detected; does not exclude the possibility of exposure to HCV. Leandra Og MD LAB BLOOD ORDERABLES F inal Result Performing Organization Address City/[facility]/ZIP Co de Phone Number [facility] [address] [place] [address]. [address] * (ABNORMAL) Hepatitis B Surface Antibody, Quantitati (10/25/2024 10:17 PM EDT) Pathologist [facility] HBSAB NUMBER 10.70(H) 0.00 - 9.99 mIU/mL 10/25/2024 11:52 PM EDT [facility] Hep B S Ab Equivocal (A) Nonreactive 10/25/2024 11:52 PM EDT [facility] Serum 10/25/2024 10:1 7 PM EDT 10/25/2024 10:17 PM EDT Leandra Og MD LAB BLOOD ORDERABLES F inal Result [facility] [address] [facility]. [address] * Hepatitis B surface antigen (10/25/2024 10:17 PM EDT) Hep B Surface Ag Nonreactive Nonreactive 10/25/2024 11:12 PM EDT [facility] Comment:Health Department no tified in accordance with reportable infectious disease guidelines. Serum 10/25/2024 10:1 7 PM EDT 10/25/2024 10:17 PM EDT Narrative [facility] - 10/25/2024 11:12 PM EDT Specimen is considered negative for HBsAg. us Leandra Og MD LAB BLOOD ORDERABLES F inal Result Performing Organization Address [facility]/ZIP Co de Phone Number [facility] [address] [facility]. [address] * Hepatitis A Antibody Total (10/25/2024 10:17 PM EDT) Pathologist [facility] Anti-HAV Total (IgG + IgM) Nonreactive 10/25/2024 11:13 PM EDT [facility] Serum 10/25/2024 10:1 7 PM EDT 10/25/2024 10:17 PM EDT Narrative [facility] - 10/25/2024 11:13 PM EDT HAV antibodies not detected Leandra Og MD LAB BLOOD ORDERABLES F inal Result Performing Organization Address [facility] de Phone Number [facility] [address] [facility]. [address] * (ABNORMAL) Hepatic Function Panel (10/25/2024 10:17 PM EDT) Total Bilirubin 9.1(H) 0.0 - 1.5 mg/dL 10/25/2024 10:47 PM EDT [facility] Bilirubin, Direct 4.58(H) 0.00 - 0.40 mg/dL 10/25/2024 10:47 PM EDT [facility] AST 51(H) 13 - 39 U/L 10/25/2024 10:47 PM EDT [facility] ALT 23 7 - 52 U/L 10/25/2024 10:47 PM EDT [facility] Alkaline Phosphatase 144(H) 36 - 125 U/L 10/25/2024 10:47 PM EDT [facility] Total Protein 5.5(L) 6.4 - 8.9 g/dL 10/25/2024 10:47 PM EDT [facility] Albumin 3.5 3.5 - 5.7 g/dL 10/25/2024 10:47 PM EDT [facility] Bilirubin, Indirect 4.52(H) 0.00 - 1.10 mg/dL 10/25/2024 10:47 PM EDT [facility] Plasma 10/25/2024 10:1 7 PM EDT 10/25/2024 10:17 PM EDT us Leandra Og MD LAB BLOOD ORDERABLES F inal Result [facility] [address] [place] [address], [facility] * (ABNORMAL) Renal Function Panel w/EGFR (10/25/2024 10:17 PM EDT) Sodium 137 133 - 146 mmol/L 10/25/2024 10:47 PM EDT [facility] Potassium 2.1(LL) 3.5 - 5.3 mmol/L 10/25/2024 10:47 PM EDT [facility] Comment:Critical Result K:2. 1 Called to and read back by: ALICIA CARCAMO RN at: 10/25/2024 22:47:45 by:NANCY Chloride 100 98 - 110 mmol/L 10/25/2024 10:47 PM EDT [facility] CO2 20(L) 21 - 33 mmol/L 10/25/2024 10:47 PM EDT [facility] Anion Gap 17(H) 3 - 16 mmol/L 10/25/2024 10:47 PM EDT [facility] BUN 74(H) 7 - 25 mg/dL 10/25/2024 10:47 PM EDT [facility] Creatinine 3.87(H) 0.60 - 1.30 mg/dL 10/25/2024 10:47 PM EDT [facility] Glucose 114(H) 70 - 100 mg/dL 10/25/2024 10:47 PM EDT [facility] Calcium 9.3 8.6 - 10.3 mg/dL 10/25/2024 10:47 PM EDT [facility] Phosphorus 5.9(H) 2.1 - 4.7 mg/dL 10/25/2024 10:47 PM EDT [facility] Albumin 3.5 3.5 - 5.7 g/dL 10/25/2024 10:47 PM EDT [facility] Osmolality, Calculated 307(H) 278 - 305 mOsm/kg 10/25/2024 10:47 PM EDT [facility] EGFR 19 10/25/2024 10:47 PM EDT [facility] [...] inal Result Performing Organization Address [facility]/ZIP Co de Phone Number [facility] [address] [facility]. [address] * (ABNORMAL) APTT, NO ANTICOAGULANT (10/25/2024 10:17 PM EDT) aPTT 41.7(H) 25.5 - 35.0 seconds 10/25/2024 10:36 PM EDT [facility] Plasma 10/25/2024 10:1 7 PM EDT 10/25/2024 10:17 PM EDT us Leandra Og MD LAB BLOOD ORDERABLES F inal Result Performing Organization Address City/[facility]/ZIP Co de Phone Number [facility] [address] [facility]. [address] * (ABNORMAL) Protime-INR (10/25/2024 10:17 PM EDT) Protime 21.7(H) 12.1 - 15.1 seconds 10/25/2024 10:35 PM EDT [facility] INR 1.8(H) 0.9 - 1.1 10/25/2024 10:35 PM EDT [facility] Comment: RECOMMENDED THERAPEUTIC RANGES USING INR : Stable oral anticoagulant therapy: 2.0 - 3.0 Mechanical prosthetic heart valve: 2.5 - 3.5 Recurrent acute myocardial infarction: 2.5 - 3.5 Plasma 10/25/2024 10:1 7 PM EDT 10/25/2024 10:17 PM EDT us Leandra Og MD LAB BLOOD ORDERABLES F inal Result [facility] [address] * (ABNORMAL) Differential (10/25/2024 10:17 PM EDT) Pathologist [facility] Differential Comments See Note 10/25/2024 10:54 PM EDT [facility] Comment: _Platelets Appear Decreased _Platelet Morphology Normal Scan Result PERFORMED 10/25/2024 10:54 PM EDT [facility] Neutrophils Relative 79.8 40.0 - 80.0 % 10/25/2024 10:54 PM EDT [facility] Lymphocytes Relative 9.6(L) 15.0 - 45.0 % 10/25/2024 10:54 PM EDT [facility] Monocytes Relative 8.9 0.0 - 12.0 % 10/25/2024 10:54 PM EDT [facility] Eosinophils Relative 1.3 0.0 - 8.0 % 10/25/2024 10:54 PM EDT [facility] Basophils Relative 0.4 0.0 - 1.0 % 10/25/2024 10:54 PM EDT [facility] nRBC 0 0 - 0 /100 WBC 10/25/2024 10:54 PM EDT [facility] Neutrophils Absolute 4,948 1,520 - 8,640 /uL 10/25/2024 10:54 PM EDT [facility] Lymphocytes Absolute 595 570 - 4,860 /uL 10/25/2024 10:54 PM EDT [facility] Monocytes Absolute 552 0 - 1,296 /uL 10/25/2024 10:54 PM EDT [facility] Eosinophils Absolute 81 0 - 864 /uL 10/25/2024 10:54 PM EDT [facility] Basophils Absolute 25 0 - 108 /uL 10/25/2024 10:54 PM EDT [facility] PLT Morphology Platelet morphology appears normal 10/25/2024 10:54 PM EDT [facility] Whole Blood 10/25/2024 10:1 7 PM EDT 10/25/2024 10:17 PM EDT us Leandra Og MD LAB BLOOD ORDERABLES F inal Result [facility] [address] * (ABNORMAL) CBC (10/25/2024 10:17 PM EDT) WBC 6.2 3.8 - 10.8 10E3/uL 10/25/2024 10:54 PM EDT [facility] RBC 2.40(L) 4.20 - 5.80 10E6/uL 10/25/2024 10:54 PM EDT [facility] Hemoglobin 8.3(L) 13.2 - 17.1 g/dL 10/25/2024 10:54 PM EDT [facility] Hematocrit 23.7(L) 38.5 - 50.0 % 10/25/2024 10:54 PM EDT [facility] MCV 98.9 80.0 - 100.0 fL 10/25/2024 10:54 PM EDT [facility] MCH 34.6(H) 27.0 - 33.0 pg 10/25/2024 10:54 PM EDT [facility] MCHC 35.0 32.0 - 36.0 g/dL 10/25/2024 10:54 PM EDT [facility] RDW 17.8(H) 11.0 - 15.0 % 10/25/2024 10:54 PM EDT [facility] Platelets 56(L) 140 - 400 10E3/uL 10/25/2024 10:54 PM EDT [facility] Comment: Specimen checked for clots. None detected. Slide Reviewed for PLT Clumps. None Seen. Platelet Estimate Decreased 10/25/2024 10:54 PM EDT [facility] MPV 8.1 7.5 - 11.5 fL 10/25/2024 10:54 PM EDT [facility] Whole Blood 10/25/2024 10:1 7 PM EDT 10/25/2024 10:17 PM EDT Narrative [facility] - 10/25/2024 10:54 PM EDT Peripheral blood smear was scanned per review criteria approved by the laboratory medical dir. us Leandra Og MD LAB BLOOD ORDERABLES F inal Result Performing Organization Address [facility] Co de Phone Number [address] * Donor Specific Antibody (DSA) (10/25/2024 10:00 PM EDT) AntiDonor Antibodies The request and specimen(s) for this test have been received and transported to the [facility] at [address] [place] [address]. The [facility] will report results directly to the client. 10/25/2024 10:20 PM EDT [facility] Comment:Testing performed by [facility], [facility], [address] [place] [address]. The [facility] report has been forwarded to the appropriate ordering location. Please refer to this report for patient results. Serum 10/25/2024 10:0 0 PM EDT 10/25/2024 10:20 PM EDT us Leandra Og MD LAB BLOOD ORDERABLES F inal Result Performing Organization Address [facility] Co de Phone Number [address] * (ABNORMAL) Venous Blood Gas, Line/Syringe (10/25/2024 10:00 PM EDT) Pathologist [facility] PH-Line Draw 7.38 7.32 - 7.42 10/25/2024 10:08 PM EDT [facility] PCO2-Line Draw 33(L) 41 - 51 mm Hg 10/25/2024 10:08 PM EDT [facility] PO2-Line Draw 33 25 - 40 mm Hg 10/25/2024 10:08 PM EDT [facility] HCO3-Line Draw 20(L) 24 - 28 mmol/L 10/25/2024 10:08 PM EDT [facility] CO2 Content-Line Draw 21(L) 25 - 29 mmol/L 10/25/2024 10:08 PM EDT [facility] Base Excess-Line Draw -5.0(L) -2.0 - 3.0 mmol/L 10/25/2024 10:08 PM EDT [facility] %HBO2-Line Draw 53.8 40.0 - 70.0 % 10/25/2024 10:08 PM EDT [facility] Carboxyhgb-Ludivina e Draw 1.9 % 10/25/2024 10:08 PM EDT [facility] Comment: CARBOXYHEMOGLOBIN (CO) REFERENCE RANGES: Non-Smokers: <2 % Smokers: <8 % TOXIC: >20 % Methemoglobin- Line Draw 0.2 0.0 - 1.5 % 10/25/2024 10:08 PM EDT [facility] Reduced Hemoglobin-Ludivina e Draw 44.1(H) 0.0 - 5.0 % 10/25/2024 10:08 PM EDT [facility] Venous, Line Draw 10/25/2024 10:00 PM EDT 10/25/2024 10:04 PM EDT us Leandra Og MD LAB BLOOD ORDERABLES F inal Result [facility] [address] [place] [id number], [facility] * (ABNORMAL) POC Glucose Monitoring Device (10/25/2024 9:56 PM EDT) [facility] POC Glucose Monitoring Device 103(H) 70 - 100 mg/dL 10/25/2024 9:58 PM EDT [facility] Blood 10/25/2024 9:56 PM EDT 10/25/2024 9:57 PM EDT Semaj Mcnair III, MD POINT OF CARE TEST ORDERABLES Final Result Performing Organization Address [facility] Co de Phone Number [facility] [address] * ECG 12 lead (MUSE) (10/25/2024 9:34 PM EDT) 10/25/2024 9:34 PM EDT Narrative MUSE - 10/27/2024 10:08 AM EDT Ventricular Rate: 97 BPM Atrial Rate: 86 BPM QRS Duration: 106 ms QT: 532 ms QTc: 675 ms P [place]: 38 degrees R [place]: -29 degrees T [place]: 32 degrees Diagnosis Line: Critical Test Result: Long QTc , AV Block ^ SINUS RHYTHM WITH PREMATURE VENTRICULAR COMPLEXES ^ PROLONGED QT ^ NONSPECIFIC ST AND T WAVE CHANGES ^ ABNORMAL ECG ^ ^ Confirmed by MD HA, [facility] ([facility]) on 10/27/2024 10:08:26 AM Leandra Og MD ECG ORDERABLES Final Result Performing Organization Address [facility] de Phone Number MUSE * Hepatitis C RNA, Quant Reflex to Genotyp (10/25/2024 8:18 PM EDT) [facility] International Units Not Detected IU/mL 10/27/2024 11:03 AM EDT [facility] Comment:Test methodology for HCV RNA quantification is an FDA-approved nucleic acid amplification assay. The Lower Limit of Quantitation (LLOQ) is 15 IU/mL. The linear range of the assay is 15-100,000,000 IU/mL. The Limit of Detection (LoD) is 12.0 IU/mL for EDTA plasma. The reference range is Not Detected. IU log10 See Note log 10 IU/mL 10/27/2024 11:03 AM EDT [facility] Comment:HCV RNA not detected . Plasma 10/25/2024 8:18 PM EDT 10/25/2024 10:27 PM EDT us Leandra Og MD LAB BLOOD ORDERABLES F inal Result [facility] [address] [place] [address], [facility] * Urinalysis w/Rfl to Microscopic (10/25/2024 8:18 PM EDT) Color, UA Yellow Yellow,Straw 10/25/2024 10:38 PM EDT [facility] Clarity, UA Clear Clear 10/25/2024 10:38 PM EDT [facility] Specific [place], UA 1.010 1.005 - 1.035 10/25/2024 10:38 PM EDT [facility] pH, UA 6.0 5.0 - 8.0 10/25/2024 10:38 PM EDT [facility] Protein, UA Negative Negative mg/dL 10/25/2024 10:38 PM EDT [facility] Glucose, UA Negative Negative mg/dL 10/25/2024 10:38 PM EDT [facility] Ketones, UA Negative Negative mg/dL 10/25/2024 10:38 PM EDT [facility] Bilirubin, UA Negative Negative 10/25/2024 10:38 PM EDT [facility] Blood, UA Negative Negative 10/25/2024 10:38 PM EDT [facility] Nitrite, UA Negative Negative 10/25/2024 10:38 PM EDT [facility] Urobilinogen, UA <2.0 0.2 - 1.9 mg/dL 10/25/2024 10:38 PM EDT [facility] Leukocyte Esterase, UA Negative Negative 10/25/2024 10:38 PM EDT [facility] Urine 10/25/2024 8:18 PM EDT 10/25/2024 10:35 PM EDT Narrative [facility] - 10/25/2024 10:38 PM EDT Microscopic testing is not performed when the dipstick is negative for blood, leukocyte, protein and nitrite. us Leandra Og MD URINE ORDERABLES Final Result [facility] [address] [facility]. [address] * Toxoplasma gondii antibody, IgG (10/25/2024 8:18 PM EDT) Pathologist [facility] Toxoplasma Gondii IgG <3.0 0.0 - 7.1 IU/mL 10/27/2024 7:55 AM EDT [facility] Comment: Negative <7.2 Equivocal 7.2 - 8.7 Positive >8.7 Serum 10/25/2024 8:18 PM EDT 10/27/2024 8:06 AM EDT [facility] - 10/27/2024 8:06 AM EDT PERFORMED AT: [facility] [id number] [employer]ICATOR: Bassam Khalil, PhD PHONE: [phone] Leandra Og MD LAB BLOOD ORDERABLES F inal Result Performing Organization Address City/[facility]/ZIP Co de Phone Number [facility] [address] [facility]. [address] * Antibody Screen (10/25/2024 7:46 PM EDT) [facility] Antibody Screen Negative 10/25/2024 10:41 PM EDT [facility] Blood 10/25/2024 7:46 PM EDT 10/25/2024 9:54 PM EDT [facility] - 10/25/2024 10:44 PM EDT Testing performed by [facility] Transfusion Service Ben Blake MD BLOOD BANK TEST ORDERABLES Fi nal Result [facility] [address] [facility]. [address] * ABO/Rh (10/25/2024 7:46 PM EDT) [facility] ABO Grouping O 10/25/2024 10:23 PM EDT [facility] Rh Type Positive 10/25/2024 10:23 PM EDT [facility] Blood 10/25/2024 7:46 PM EDT 10/25/2024 9:54 PM EDT us Ben Blake MD BLOOD BANK TEST ORDERABLES Fi nal Result [facility] [address] [place] [address], [facility] * (ABNORMAL) TEG-Standard Global Hemostasis (Rapid TEG with Heparin Effect, Contains a Baseline TEG) (10/25/2024 7:46 PM EDT) Pathologist [facility] Citrated Kaolin Reaction Time (TEGHEPARINASE) 8.4 4.6 - 9.1 minutes 10/25/2024 10:49 PM EDT [facility] Citrated Rapid Teg Maximum Amplitude (TEGHEPARINASE) <40.0(L) 52.0 - 70.0 mm 10/25/2024 10:49 PM EDT [facility] Citrated Functional Fibrinogen Maximum Amplitude (TEGHEPARINASE) 6.7(L) 15.0 - 32.0 mm 10/25/2024 10:49 PM EDT [facility] Citrated Kaolin W/Heparinase Reaction Time (TEGHEPARINASE) 8.1 4.3 - 8.3 minutes 10/25/2024 10:49 PM EDT [facility] Citrated Kaolin K-Time (TEGHEPARINASE) 2.5(A) 0.8 - 2.1 minutes 10/25/2024 10:49 PM EDT [facility]rated Kaolin Angle (TEGHEPARINASE) 65.7(A) 63.0 - 78.0 degrees 10/25/2024 10:49 PM EDT [facility] Citrated Kaolin Maximum Amplitude (TEGHEPARINASE) <40.0(L) 52.0 - 69.0 mm 10/25/2024 10:49 PM EDT [facility] Citrated Functional Fibrinogen- Fibrinogen Level (TEGHEPARINASE) 159.5(L) 278.0 - 581.0 mg/dL 10/25/2024 10:49 PM EDT [facility] Whole Blood (Citrate) 10/25/2024 7:46 PM EDT 10/25/2024 10:15 PM EDT us Ben Blake MD LAB BLOOD ORDERABLES Final Re sult [facility] [address] [facility] [place] [address], [facility] documented in this encounter Visit Diagnoses [...] Paulette Flannery RN) 1142 (Given - Provider: Pauletet Flannery RN) furosemide (LASIX) injection 40 mg [...] Vilchis RN)1255 (Given - Provider: Paulette Flannery RN)6 (Given - Provider: Yvonne Gale RN) 0614 (Given - Provider: Yvonne Gale RN)1345 (Given - Provider: Paulette Flannery, ЮЛИЯ)2119 (Given [...] RN) 1141 (Given - Provider: Paulette Flannery, ЮЛИЯ)1530 (Not Given - Provider: Meka Montalvo RN [...] Paulette Flannery, ЮЛИЯ)2118 (Given - Provider: Yvonne Gale RN) 114 [...] Not Crush 0614 (Given - Provider: Vandana Vilchis, ЮЛИЯ) 0614 (Given - Provider: Yvonne Gale, ЮЛИЯ) [...] POD #6 1020 (Given - Provider: Paulette Flannery, ЮЛИЯ) predniSONE (DELTASONE) tablet 40 mg (COMPLETED)(Linked Group [...] mEq 1901 (Given - Provider: Paulette Flannery RN)211 (Given [...] ЮЛИЯ) 0215 (Given - Provider: Yvonne Gale, RN)0615 (Given - Provider: Yvonne Gale, RN)1153 (Given - Provider: Paulette Flannery RN)1714 [...] documented as of this encounter 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
--- OUTSIDE RECORDS SUMMARY | 2024-10-25 22:54 | XMS_ITS | Encounter Summary ---
Author Organization [facility] Address [facility] [place] [address] Care Team Providers Care Fireproof Door Maker Name Role Phone Enedina Mcguire NP Primary Care Provider [phone] Source Comments This information has been disclosed [...] release of HIV test results or diagnoses. [id number] Reason for Visit * Auth/Cert (Routine) Specialty Diagnoses / Procedures Referred By Shane t Referred To Contact Surgical Intensive Care Diagnoses Liver transplant recipient (CMS-HCC) cirrhosis and CKD Procedures LIVER-KIDNEY TRANSPLANT [facility] SICU [address] [place] [address] Phone: tel: Referral ID Status Reason Start Date Expiration Date Visits Re quested Visits Authorized [id number] 1 1 Encounter Details Date Type Department Care Team (Late st Contact Info) Description 10/25/2024 10:54 PM EDT Anesthesia Event [facility] PERIOP [address] [place] [address] Eber Quinones MD [address] [place] [address] Maureen Fleming MD [address] [place] [address] Anesthesia Record Procedure Summary Procedure Name Responsible Anesthesiologist Anesthesia Start Time Anesthesia Stop Time LIVER TRANSPLANT (Abdomen) Eber Quinones MD 10/25/24225310/26/24 0614 Events Date Time Event Comment 10/25/2024 2254 An Start 2254 An Start Data 2300 An Induction 2304 An Intubation 2350 Time Out 10/26/2024 0134 Provider Handoff Type of Ane sthetic: general Airway: Type: ETT Difficult BMV / Intubation: no Vascular Access: PIV(s), Introducer, and PA cath Monitors: Standard ASA, arterial line, minimally invasive CO / SVV, and PAC / CVP Outstanding Issues to Address: hemodynamics / volume resuscitation and acid / base / electrolytes Disposition: ICU 0149 Anhepatic Phase 0316 Hepatic Reperfusion 0554 An Emergence 0556 an stop data 0557 Transport to ICU 0614 An Stop Meds Name Total succinylcholine (QUELICIN) 20 mg/mL inje ction 140 mg fentanyl (SUBLIMAZE) injection 50 mcg/ml 75 mcg propofol (DIPRIVAN) injection 10 mg/ml 2 50 mg vecuronium (NORCURON) injection 40 mg heparin (porcine) injection 1,000 units/ mL 3,000 Units calcium chloride 100 mg/ml (10%) injecti on IV 8 g phenylephrine (HUNG-SYNEPHRINE) injection 200 mcg lidocaine (PF) 20 mg/mL (2%) injection - Intravenous 100 mg insulin (HumuLIN R) infusion - TITRATABLE NURSING PROTOCOL (HYPERGLYCEMIA) 4.57 Units AMPicillin 2 g in sodium chloride 0.9% 1 00 mL IVPB (Wliz3Rvd) 4 g cefTRIAXone (ROCEPHIN) 2 g in sodium chl oride 0.9 % 100 mL Ranv8Xdc 8 g fluconazole (DIFLUCAN) 200 mg in iso-osm sodium chloride 100 mL 200 mg EPINEPHrine (ADRENALIN) 10 mg in sodium chloride 0.9 % 250 mL infusion 1,088 mcg methylPREDNISolone sodium lees ccinate (SOLU-medrol) 500 mg in sodium chloride 0.9 % 100 mL IVPB 500 mg norepinephrine (LEVOPHED) 16 mg/250 mL ( 64 mcg/mL) infusion 5,157 mcg vasopressin (VASOSTRICT) 40 units in sod ium chloride 0.9% 100 mL infusion 14.87 Units potassium chloride (KCl) 10 mEq in 100 m L IVPB 90 mEq norepinephrine (LEVOPHED) injection 1 mg /ml 624 mcg midazolam (VERSED) injection 1 mg/ml 1 m g methylene blue (PROVAYBLUE) (ANTIDOTE) I V solution 200 mg sodium bicarbonate injection 1 mEq/mL 10 0 mEq propofol (DIPRIVAN) 10 mg/ml infusion - 100mL VIAL SIZE 216.83 mg neostigmine (PROSTIGMINE) 1 mg/mL inject ion 5 mg glycopyrrolate (ROBINUL) 0.2 mg/mL injec tion 0.8 mg lactated ringers infusion 4,000 mL electrolyte-r (pH 7.4)(NORMOSOL-R pH 7.4 ) IV soln 1000 mL 5,000 mL 0.9% NaCl infusion 0 mL albumin human bottle 5% 1,000 mL dextrose 5 % (D5W) iv infusion 1000 mL 1 00 mL * Agents Name N2O O2 N2O Air Sevoflurane * Blood Name Total PRBC 3,850 mL FFP 3,300 mL PLATELETS 500 mL CRYOPRECIP 150 mL Lines, Drains, and Airways Type Details Placement Removal Wound 08/13/24; 0005; #1; Moisture associated skin damage; Groin; Proximal, Right, Upper, Dorsal; Redness in fold 08/13/24 0005 by Izzy Donovan RN Anesthesia Airway Device 10/10/24; 1139; Nasal Cannula Salter 10/10/24 1139 by NAHED Puri Anesthesia Airway Device 10/25/24; 2304; I.V., Rapid Sequence; Standard; No Video MAC; Mac; 4; Oral; Grade I View; ETT; 8 mm; Cuffed; 7 mL; 23 cm; Stylet Standard; 1; Resident; Capnograph 10/25/24 2304 by Jimmy Gonzalez MD Drain 10/26/24; 0508; 2; Bulb; Left, Superior; 19 Fr. 10/26/24 0508 by Mak Maher RN Incision 10/25/24; 2128; Abdomen; ioban, dsd; 10/27/24; 0600 10/25/24 212 by Mka Maher RN 10/27/24 06 by Shanel Shen RN Peripheral IV 10/25/24; 2130; Anterior, Distal, Left; Antecubital; Alcohol; None; Standard; Tolerated well 10/25/24 213 by Maureen Nelson RN 10/27/241999 by Solange Jj RN Arterial Line 10/25/24; 2244 (created via procedure documentation); 22; Right; Radial; Chlorhexidine; 1 10/25/24 2245 by Maureen Fleming MD 10/29/24 1200 by Soco Yap RN Urethral Catheter 10/25/24; 2325; Triple-lumen (3-Way); 18 Fr.; Tolerated well; Per order 10/25/24 232 by Marty Clark RN 10/30/24 225 by Vandana Vilchis RN Introducer 10/25/24; 235 (created via procedure documentation); OR; Sterile; Internal jugular; Right; 10/29/24; 1730 10/25/24 2355 by Jimmy Gonzalez MD 10/29/24 1730 by Soco Yap RN Drain 1; Bulb; Abdomen; Right, Superior; 19 Fr.; 0634; Per protocol 10/26/24 0509 by 10/27/24 0634 by Chinedu Quinn RN Intentionally Retained Foreign Objects Abdomen; 10/27/24; 0320; 5; 2 10/26/24 0527 by 10/27/24 0320 by Michela Amos RN NG/OG Tube 10/26/24; 0600; Orogastric; Not present upon assessment 10/26/24 0600 by Shell Biswas RN 10/27/241999 by Solange Jj RN Drain 10/26/24; 0600; Bilary; Other (see comment); Abdomen; Inferior, Right; 1200 10/26/24 0600 by Shell Biswas RN 10/27/24 1200 by Elaine Carrillo RN Peripheral IV 10/26/24; 0609; 14 G ; Anterior, Left; Forearm 10/26/24 0609 by Pola Guzman RN 10/28/24 0800 by Elaine Carrillo RN ETT 10/26/24; 0622; 8 mm ; Cuffed; 1; 26 cm; Lips; Commercial tube suárez; CO2 Detector color change, Breath Sounds Confirmed 10/26/24 0622 by Martha Phillip, SUPERVISOR GRAPHITE 10/27/24 1310 by Chinedu Almeida, RONALDO documented in this encounter Social History Tobacco [...] the past 12 months has th e [employer], oil, or water [employer] threatened to shut off services in your [...] as of this encounter Progress Notes * Ben Blake MD - 10/26/2024 7:59 PM EDT Anesthesia Post Note Patient: Julien Anderson Procedure(s) Performed: Procedure(s): LIVER TRANSPLANT Anesthesia type: general endotracheal Patient location: ICU Airway: Patent Post pain: Adequate analgesia Nausea / Vomiting: Absent Post-operative Hydration Status: Ongoing resuscitation Post assessment: no apparent anesthetic complications Last Vitals: Vitals: 10/26/24 1845 10/26/24 1900 10/26/24 1915 10/26/24 1930 BP: 119/64 BP Location: Patient Position: BP Cuff Size: Pulse: 94 94 94 93 Resp: (!) 0 18 18 18 Temp: TempSrc: SpO2: 98% 98% 98% 99% Weight: Height: Last Temperature: 99.5 ??F (37.5 ??C) (10/26/2024 6:35 PM) Post vital signs: stable Level of consciousness: sedated Complications: There were no known notable events for this encounter. documented in this encounter H&P Notes * Ben Blake MD - 10/25/2024 7:26 PM EDT [facility] DEPARTMENT OF ANESTHESIOLOGY PRE-PROCEDURAL EVALUATION Julien Anderson is a 39 y.o. year old male presenting for: Procedure(s): LIVER-KIDNEY TRANSPLANT Surgeon: Harvey Domínguez III, MD Chief Complaint cirrhosis and CKD EtOH cirrhosis decompensated by esophageal varices, hepatic encephalopathy, NADIYA on CKD vs hepatorenal synd, coagulopathy Chronic anemia, hypokalemia Recent admission for spontaneous bacterial peritonitis with GNR's Review of Systems Anesthesia Evaluation History of anesthetic complications (Prior neck fixation with reported difficult intubation.) Cardiovascular: Hypertension is well controlled. (-) CAD, CABG/stent, dysrhythmias, angina, orthopnea. ECG reviewed. ROS comment: [facility] 10/14/24: IMPRESSIONS: - Patent coronary arteries without evidence of significant epicardial disease - Patient had radial artery spasm and short arch with tortuosity which made engagement difficult, used XB 3 guide to engage LM - LVEDP 22 TTE 07/15/24 () ?? Left Ventricle: The left ventricle is normal size. There is concentric hypertrophy. The left ventricular systolic function is normal. The LVEF as measured by biplane volume is 60%. The diastolic function is normal. ?? There is no recent study available for direct [id number] comparison. Stress echo 10/09/24: - Left ventricle: The cavity size is normal. Wall thickness was increased in a pattern of mild LVH.Systolic function is normal. The estimated ejection fraction is 60-65%. Wall motion is normal; there are no regional wall motion abnormalities. There is no evidence of a thrombus revealed by acousticcontrast opacification. - Right ventricle: Systolic function is normal by objective interpretation. TAPSE: 2.9cm.Tricuspid annular systolic velocity: 22cm/s. - Atrial septum: Agitated saline contrast study at baseline or with provocation, shows no sppus-[id number] atrial level shunt. - Pulmonary arteries: Systolic pressure was mildly increased, estimated to be atleast 32mm Hg plus the RA pressure. - Pericardium, extracardiac: Ascites is noted. - Stress ECG conclusions: There are no stress arrhythmias or conduction abnormalities. The stress ECG is nondiagnostic. - Staged echo conclusions: There is no echocardiographic evidence for stress- induced ischemia to the level of stress attained. The study is non-diagnostic. Impressions: Non-diagnostic study due to insufficient heart rate. Study terminated due to profound hypotension. Negative for evidence of ischemia at level of stress achieved. Neuro/Muscoloskeletal/Psych: (+) back problem (C3-C6 fusion). (-) seizures, CVA. Comments: X-ray mandible for caries 10/08/24 IMPRESSION: 1. No acute osseous abnormality. CT head 10/06/24 for AMS: IMPRESSION: 1. No acute intracranial abnormality. 2. No intracranial mass effect or hemorrhage. MRI C-spine 07/2023 IMPRESSION: 1. Expected post-surgical changes 2. Bilateral foraminal disc protrusions C7-T1 left greater than right, which appear to abut the exiting C8 nerve roots. Please see above for specific findings at each level. Pulmonary: (-) COPD, asthma. GI/Hepatic/Renal: (+) liver disease and end stage liver disease (EtOH cirrhosis). GERD is. Chronic renal disease (Hepatorenal; NOT currently on dialysis. Recent Cr baseline: 2.9- 3.3), CRI. Comments: Did not tolerate BB for variceal prophy EGD 10/10/24: Findings: - Medium sized varices with no bleeding and no stigmata of recent bleeding were found in the lower third of the esophagus. - Severe portal hypertensive gastropathy was found in the stomach. There was mild bleeding from gastroscope irritation. This was easily washed off. No bleeding at the end of the procedure - The examined duodenum was normal. MRI abdomen 10/13/24 IMPRESSION: 1. Cirrhosis and sequela of portal hypertension including large volume ascites, splenomegaly, and varices. No suspicious hepatic lesions. 2. Thickening/edema of the stomach, small bowel, and colon, likely related to portal hypertension. 3. Ablated left renal lesion without evidence of local recurrence. CT abdomen/pelvis 08/2024 IMPRESSION: 1. Cirrhotic liver morphology with sequela [...] small to moderately sized right inguinal hernia. Endo/Other: (+) hypothyroidism (TSH has been low-normal), anemia (Recent baseline Hgb in 7's), thrombocytopenia(Baseline in 30's recently) and bleeding disorder (Coagulopathy of liver failure). (-) diabetes mellitus (HgbA1c: 3.7% on 09/2024). Past Medical History Past Medical History: Diagnosis [...] CARDIAC CATH LABS; Service: Cath; Laterality: N/A; Family History No family history on file. Social History Social History Socioeconomic History Marital [...] No Physical Activity: Unknown (07/14/2024) Received from [facility] Exercise Vital Sign Days of Exercise per Week: Patient unable to answer Minutes of Exercise per Session: Not on file Stress: Patient Unable To Answer (07/14/2024) Received from [facility] [place] [facility] [employer] - Occupational Stress Questionnaire Feeling of Stress : Patient unable to answer Social Connections: Patient Unable To Answer (07/14/2024) Received from [facility] Social Connection and Isolation Panel [NHANES] Frequency of Communication with Friends and Family: Patient unable to answer Frequency of Social Gatherings with Friends and Family: Patient unable to answer Attends [employer] Services: Patient unable to answer Active [...] times a day. naloxone (NARCAN) 4 mg/actuation [employer] Apply 1 spray in one nostril if [...] mg total) by mouth daily. Inpatient Meds: Scheduled: Continuous: PRN: Vital Signs Wt Readings from Last 3 Encounters: 10/10/24 (!) 263 lb 8 oz (119.5 kg) 09/05/24 (!) 262 lb 9.6 oz (119.1 kg) 09/02/24 (!) 258 lb (117 kg) Ht Readings from Last 3 Encounters: 10/16/24 6' 4 (1.93 m) 09/05/24 6' 4 (1.93 m) 09/02/24 6' 4 (1.93 m) Temp Readings from Last 3 Encounters: 10/17/24 98 ??F (36.7 ??C) (Oral) 09/09/24 97.9 ??F (36.6 ??C) (Oral) 08/19/24 97.4 ??F (36.3 ??C) (Oral) BP Readings from Last 3 Encounters: 10/17/24 104/54 09/09/24 126/69 09/02/24 103/60 Pulse Readings from Last 3 Encounters: 10/17/24 96 09/09/24 98 09/02/24 95 SpO2 Readings from Last 3 Encounters: 10/17/24 98% 09/09/24 100% 09/02/24 100% Physical Exam Airway: Mallampati: II Mouth Opening: >2 FB TM distance: > = 3 FB Neck ROM: full Comment: 11/20/23 Mask Ventilation: 3; Technique: Direct laryngoscopy; Type: ETT - single; Single Lumen Tube Size: 8 mm; Cuffed: Yes; Laryngoscope: (lowpro 4); Blade Size: 4; Location: Oral; Grade View: Grade I; Insertion Attempts: 1; Placement Verification: Auscultation, Capnometry; Airway Comments: Atraumatic 11/19/23: 10/17/22: Mac 4, 7.5 ETT, Gr 1 view, 1 attempt * and patient report he has been told he was a difficult airway in the past* 11/06/22 Technique: Direct laryngoscopy; Type: ETT - single; Single Lumen Tube Size: 7.5 mm; Cuffed: Yes; Laryngoscope: Isaac; Blade Size: 4; Location: Oral; Grade View: Grade I; Insertion Attempts: 1; Placement Verification: Auscultation, Capnometry; Airway Comments: No change to dentition. Bruise on upper lip from oral airway 07/03/2022 2 intubations in chart, but no documentation of view or technique, just Blade: 3 and Blade: 4 Dental: - No obvious cracked, loose, chipped, or missing teeth. Pulmonary: Breathing: unlabored Cardiovascular: Rhythm: regular Rate: normal Neuro/Musculoskeletal/Psych: Mental status: alert and oriented to person, place and time. PE comment: At times slow answering questions Abdominal: Abdomen: ascites. Current OB Status: Other Findings: Laboratory Data Lab Results Component Value Date WBC 5.8 10/16/2024 HGB 7.7 (L) 10/16/2024 HCT 22.1 (L) 10/16/2024 MCV 102.3 (H) 10/16/2024 PLT 43 (L) 10/16/2024 No results found for: ABORH Lab Results Component Value Date GLUCOSE 107 10/22/2024 BUN 62 (A) 10/22/2024 CO2 18 10/22/2024 CREATININE 3.30 (A) 10/22/2024 K 3.7 10/22/2024 NA 133 (A) 10/22/2024 CL 106 10/22/2024 CALCIUM 9 10/22/2024 ALBUMIN 3.2 (A) 10/22/2024 PROT 5.4 (A) 10/21/2024 ALKPHOS 190 10/21/2024 ALT 32 10/21/2024 AST 57 10/21/2024 BILITOT 7.3 (A) 10/21/2024 Lab Results Component Value Date INR 1.52 (A) 10/21/2024 No results found for: PREGTESTUR , PREGSERUM , HCG , HCGQUANT Anesthesia Plan ASA 4 Current non-smoker Anesthesia Type: general endotracheal. PONV Risk Factors: current non-smoker, plan for postoperative opioid use. Induction: Intravenous and rapid sequence induction. Additional comments: Standard ASA monitors Arterial line Large-bore central venous line with PA cath Normal coronaries, but severe portal hypertensive gastropathy on recent EGD; will defer EMERSON unless clinical course dictates change in risk/benefit balance Mild hyponatremia, plan low-mod Na+ fluids intra-op Aggressive but closely monitored K+ repletion intraop SICU post-op Anesthetic plan and risks discussed with patient. Plan, alternatives, and risks of anesthesia, including , have been explained to and discussed with the patient/legal guardian. By my assessment, the patient/legal guardian understands and agrees. Scenario presented in detail. Questions answered. Use of blood products discussed with patient who consented to blood products. Plan discussed with resident and attending. [1] Allergies Allergen Reactions Adhesive Itching and Rash Tegaderm adhesive on Ivs, pt states its tolerable Duloxetine Other (See Comments) Became Manic documented in this encounter Procedure Notes * Jimmy Gonzalez MD - 10/25/2024 11:54 PM EDTAssociated Order(s): Taft Emily Cath Taft Emily Cath Date/Time: 10/25/2024 11:13 PM Performed by: DILIP Mouraonsent: Verbal consent obtained Risks and benefits: risks, benefits and alternatives were discussed Consent given by: patient Indication(s): hemodynamic monitoring Patient location at time of line placement: OR Conditions of line placement: sterile Introducer placement details: Preparation: skin prepped with 2% chlorhexidine Location details: right internal jugular Catheter size: 9 Fr Insertion guided by: ultrasound Number of attempts: 1 Successful placement: yes PA catheter placement details: PA catheter advanced: while monitoring the appropriate wave patterns on the bedside monitor PA catheter position at introducer hub (cm): 51 Pulmonary capillary wedge pressure (mmHg): 13 Cosigned by Ben Blake MD at 10/26/2024 7:45 PM EDT Associated Ben Arriola MD - 10/26/2024 7:45 PM EDT I was physically present for the entire procedure. I reviewed the procedure note as entered by the resident and confirm that the note accurately reflects the procedure performed. Ben Blake MD Attending Anesthesiologist [facility] * Jimmy Gonzalez MD - 10/25/2024 11:52 PM EDTAssociated Order(s): Insert Arterial Line Insert Arterial Line Date/Time: 10/25/2024 10:45 PM Performed by: Maureen Fleming MD Authorized by: Ben Blake MD Consent: Consent obtained: Verbal Consent given by: Patient Risks, benefits, and alternatives were discussed: yes Risks discussed: Bleeding, infection, pain, ischemia and repeat procedure Indications: Indications: hemodynamic monitoring and multiple ABGs Pre-procedure details: Skin preparation: Chlorhexidine Procedure details: Laterality: Right Location: Radial artery Needle gauge: 22 G Placement technique: Ultrasound guided Number of attempts: 1 Transducer: waveform confirmed Post-procedure details: Post-procedure: Secured with tape and sutured CMS: Normal Cosigned by Ben Blake MD at 10/26/2024 7:44 PM EDT Associated Ben Arriola MD - 10/26/2024 7:44 PM EDT I was physically present for the entire procedure. I reviewed the procedure note as entered by the resident and confirm that the note accurately reflects the procedure performed. Ben Blake MD Attending Anesthesiologist [facility] documented in this encounter Plan of Treatment Upcoming Encounters Date Type Department Care Team (Late st Contact Info) Description 12/05/2024 8:01 AM EDT Hospital Encounter [facility] ENDOSCOPY [address] [place] [address] Chris Orosco MD [address] [place] [phone] 12/05/2024 8:01 AM EDT - 12/05/2024 8:31 AM EDT Surgery [facility] ENDOSCOPY [address] [place] [id number] Chris Orosco MD [address] [place] [phone] EGD Scheduled Procedures Name Priority Associated Diagnoses Date/Ti me EGD Cirrhosis of liver with ascites, unspecified hepatic cirrhosis type ([facility]) 12/05/2024 8:01 AM EDT documented as of this encounter Procedures Procedure Name Priority Date/Time Associated Diagnosis Comments SWAN EMILY Routine 10/25/2024 11:13 PM EDT INSERT ARTERIAL LINE Routine 10/25/2024 10:45 PM EDT documented in this encounter Results * CENTRAL LINE SINGLE LUMEN PERFORMABLE (10/25/2024 11:13 PM EDT) Ben Pope MD - 10/25/2024 11:13 PM EDT Ben Blake MD 10/26/2024 7:45 PM Taft Emily Cath Date/Time: 10/25/2024 11:13 PM Performed by: DILIP Mouraonsent: Verbal consent obtained Risks and benefits: risks, benefits and alternatives were discussed Consent given by: patient Indication(s): hemodynamic monitoring Patient location at time of line placement: OR Conditions of line placement: sterile Introducer placement details: Preparation: skin prepped with 2% chlorhexidine Location details: right internal jugular Catheter size: 9 Fr Insertion guided by: ultrasound Number of attempts: 1 Successful placement: yes PA catheter placement details: PA catheter advanced: while monitoring the appropriate wave patterns on the bedside monitor PA catheter position at introducer hub (cm): 51 Pulmonary capillary wedge pressure (mmHg): 13 Ben Blake MD IV THERAPY ORDERABLES Final R esult * Insert Arterial Line (10/25/2024 10:45 PM EDT) Ben Pope MD - 10/25/2024 10:45 PM EDT Ben Blake MD 10/26/2024 7:44 PM Insert Arterial Line Date/Time: 10/25/2024 10:45 PM Performed by: Maureen Fleming MD Authorized by: Ben Blake MD Consent: Consent obtained: Verbal Consent given by: Patient Risks, benefits, and alternatives were discussed: yes Risks discussed: Bleeding, infection, pain, ischemia and repeat procedure Indications: Indications: hemodynamic monitoring and multiple ABGs Pre-procedure details: Skin preparation: Chlorhexidine Procedure details: Laterality: Right Location: Radial artery Needle gauge: 22 G Placement technique: Ultrasound guided Number of attempts: 1 Transducer: waveform confirmed Post-procedure details: Post-procedure: Secured with tape and sutured CMS: Normal Ben Blake MD IV THERAPY ORDERABLES Final R esult documented in this encounter Visit Diagnoses Diagnosis Cirrhosis of liver with ascites, unspecified hepatic cirrhosis type ([facility]) * Transfer of Care - Maureen Fleming MD - 10/26/2024 6:10 AM EDT Anesthesia Transfer of Care Note Patient: Julien Anderson Procedure(s) Performed: Procedure(s): LIVER TRANSPLANT Patient location: ICU Anesthesia type: general endotracheal Airway Device on Arrival to PACU/ICU: Endotracheal Tube IV Access: Peripheral and Central Line Monitors Recommended to be Used During PACU/ICU: Arterial Line and Standard Monitors Outstanding Issues to Address: Hemodynamics, Volume Resuscitation, and Oxygenation/Ventilation Level of Consciousness: sedated Post vital signs: Vitals: 10/26/24 0605 BP: 147/85 Pulse: 120 Resp: 13 Temp: 98.8 F SpO2: 100% Complications: No notable events documented. Date 10/25/24 0700 - 10/26/24 0659 10/26/24 07 - 10/27/24 0659 Shift [id number] 9787-3788 24 Hour Total 0527-6975 3088-4298 6775-3113 24 Hour Total INTAKE I.V. 9100(74.3) 9100(74.3) Volume (dextrose 5% in water (D5W) infusion) 100 100 Volume (mL) (electrolyte-R (pH 7.4) (NORMOSOL-R pH 7.4) IV solution) 5000 5000 Volume (mL) (lactated Ringers IV infusion) 4000 4000 Blood 7800 7800 Volume (Transfuse RBC) 350 350 Volume (Transfuse RBC) 350 350 Volume (Transfuse Fresh Frozen Plasma) 300 300 Volume (Transfuse Fresh Frozen Plasma) 300 300 Volume (Transfuse Fresh Frozen Plasma) 300 300 Volume (Transfuse RBC) 350 350 Volume (Transfuse Platelets) 250 250 Volume (Transfuse RBC) 350 350 Volume (Transfuse Fresh Frozen Plasma) 300 300 Volume (Transfuse RBC) 350 350 Volume (Transfuse Fresh Frozen Plasma) 300 300 Volume (Transfuse RBC) 350 350 Volume (Transfuse RBC) 350 350 Volume (Transfuse RBC) 350 350 Volume (Transfuse Fresh Frozen Plasma) 300 300 Volume (Transfuse Fresh Frozen Plasma) 300 300 Volume (Transfuse Fresh Frozen Plasma) 300 300 Volume (Transfuse RBC) 350 350 Volume (Transfuse RBC) 350 350 Volume (Transfuse RBC) 350 350 Volume (Transfuse Fresh Frozen Plasma) 300 300 Volume (Transfuse Fresh Frozen Plasma) 300 300 Volume (Transfuse Fresh Frozen Plasma) 300 300 Volume (Transfuse Platelets) 250 250 Volume (Transfuse Cryoprecipitate) 75 75 Volume (Transfuse Cryoprecipitate) 75 75 IV Piggyback 1700 1700 Volume (mL) (fluconazole (DIFLUCAN) 200 mg in iso-osm sodium chloride 100 mL) 100 100 Volume (mL) (methylPREDNISolone sodium succinate (SOLU-medrol) 500 mg in sodium chloride 0.9 % 100 mL IVPB) 100 100 Volume (mL) (cefTRIAXone (ROCEPHIN) 2 g in sodium chloride 0.9 % 100 mL Mgit9Qby) 100 100 Volume (mL) (AMPicillin 2 g in sodium chloride 0.9% 100 mL IVPB (Iufv3Hep)) 200 200 Volume (mL) (albumin human bottle 5%) 1000 1000 Volume (mL) (potassium chloride (KCl)/Sterile water 100 mL 10 mEq/100 mL IVPB) 200 200 Shift Total(mL/kg) 36388(151.9) 73847(151.9) OUTPUT Urine 150(0.2) 1375 1525 Urine 150 1275 1425 Output (mL) (IUC (Berkowitz) Triple-lumen (3-Way) 18 Fr.) 100 100 Shift Total(mL/kg) 150(1.2) 1375(11.2) 1525(12.5) Weight (kg) 122.5 122.5 122.5 122.5 122.5 122.5 122.5 documented in this encounter Administered Medications Inactive Administered Medications - up to 3 most recent administrations Medication Order MAR Action Action Date Dose Rate Site albumin human bottle 5% Intravenous, Continuous - One Step Medications Only, Starting on 10/25/24 at 2337, Anesthesia Intra-op New Bag 10/26/2024 1:04 AM EDT New Bag 10/26/2024 12:08 AM EDT New Bag 10/25/2024 11:37 PM EDT AMPicillin 2 g in sodium chloride 0.9% 100 mL IVPB (Xgte4Vja) 2 g, Intravenous, at 200 mL/hr, Every 6 hours, First dose on 10/26/24 at 0000, Use [id number] Adapter - Mix Thoroughly Before Administration Bolus 10/26/2024 3:08 A M EDT 2 g New Bag 10/25/2024 11:50 PM EDT 2 g calcium chloride injection Intravenous, PRN - One Step Medication Only, Starting on 10/26/24 at 0016, Anesthesia Intra-op Given 10/26/2024 4:42 AM EDT 0.5 g Given 10/26/2024 4:31 AM EDT 0.5 g Given 10/26/2024 3:19 AM EDT 1 g cefTRIAXone (ROCEPHIN) 2 g in sodium chloride 0.9 % 100 mL Sesk4Qks 2 g, Intravenous, Administer over 30 Minutes, Once, Use Ygmh0Btm Adapter - Mix Thoroughly Before Administration, Indication? Prophylaxis-Surgical, Site of diagnosed infections (select all that apply): Other, Other: liver, kidney transplant Bolus 10/26/2024 12:06 AM EDT 6 g New Bag 10/25/2024 11:20 PM EDT 2 g dextrose 5% in water (D5W) infusion Intravenous, Continuous - One Step Medications Only, Starting on 10/26/24 at 0334, Anesthesia Intra-op New Bag 10/26/2024 3:34 AM EDT electrolyte-R (pH 7.4) (NORMOSOL-R pH 7.4) IV solution Intravenous, Continuous - One Step Medications Only, Starting on 10/25/24 at 2325, Anesthesia Intra-op New Bag 10/26/2024 4:36 AM EDT New Bag 10/26/2024 3:54 AM EDT New Bag 10/26/2024 2:50 AM EDT EPINEPHrine (ADRENALIN) 10 mg in sodium chloride 0.9 % 250 mL infusion Intravenous, at 0-22.5 mL/hr, Continuous, Starting on 10/25/24 at 2030, For 24 hours, FOR O.R. USE ONLY. Titrate in O.R. based on MAP and/or ventricular function. CENTRAL LINE PREFERRED: Peripheral line may be used for urgent initiation prior to placement of central line., Intra-op, To be given: intra-op Rate/Dose Change 10/26/2024 5:26 AM EDT 5 mcg/min 7.5 mL/hr Rate/Dose Change 10/26/2024 4:50 AM EDT 7.5 mcg/min 11.25 mL/hr Rate/Dose Change 10/26/2024 4:23 AM EDT 5 mcg/min 7.5 mL/ hr fentaNYL (SUBLIMAZE) injection Intravenous, PRN - One Step Medication Only, Starting on 10/25/24 at 2300, Anesthesia Intra-op Given 10/25/2024 11:26 PM EDT 25 mcg Given 10/25/2024 11:00 PM EDT 50 mcg fluconazole (DIFLUCAN) 200 mg in iso-osm sodium chloride 100 mL 200 mg, Intravenous, Administer over 60 Minutes, Once, On 10/25/24 at 2100, For 1 dose, Begin infusion 120 minutes prior to incision. DO NOT REFRIGERATE., Pre-op, Indication? Prophylaxis-Surgical, Site of diagnosed infections (select all that apply): Other, Other: liver, kidney transplant New Bag 10/26/2024 5:29 AM EDT 200 mg glycopyrrolate (ROBINUL) injection Intravenous, PRN - One Step Medication Only, Starting on 10/26/24 at 0608, Anesthesia Intra-op Given 10/26/2024 6:08 AM EDT 0.8 mg heparin (porcine) injection Intravenous, PRN - One Step Medication Only, Starting on 10/26/24 at 0235, Anesthesia Intra-op Given 10/26/2024 2:35 AM EDT 3,000 Units insulin (HumuLIN R) infusion - TITRATABLE NURSING PROTOCOL (HYPERGLYCEMIA) 0-28 Units/hr (0-28 mL/hr), Intravenous, Continuous, Starting on 10/25/24 at 2030, For 24 hours, FOR O.R. USE only. Titrate in O.R. for blood glucose management HIGH ALERT MEDICATION, Intra-op, To be given: intra-op Rate/Dose Change 10/26/2024 5:14 AM EDT 3 Units/hr 3 mL/hr New Bag 10/26/2024 4:27 AM EDT 2 Units/hr 2 mL/hr lactated Ringers IV infusion Intravenous, Continuous - One Step Medications Only, Starting on 10/25/24 at 2254, Anesthesia Intra-op New Bag 10/26/2024 1:39 AM EDT New Bag 10/25/2024 10:54 PM EDT lidocaine (PF) 2% (20 mg/mL) Soln Epidural, PRN - One Step Medication Only, Starting on 10/25/24 at 2300, Anesthesia Intra-op Given 10/25/2024 11:00 PM EDT 100 mg methylene blue (PROVAYBLUE) 5 mg/mL IV solution Intravenous, PRN - One Step Medication Only, Starting on 10/26/24 at 0334, Anesthesia Intra-op Given 10/26/2024 3:34 AM EDT 200 mg methylPREDNISolone sodium succinate (SOLU-medrol) 500 mg in sodium chloride 0.9 % 100 mL IVPB 500 mg, Intravenous, at 200 mL/hr, Once, On 10/25/24 at 2100, For 1 dose, Pharmacy: DO NOT mix until patient is called to the pre-op area. Give immediately following endotracheal intubation, 30 minutes prior to Thymoglobulin., Pre-op New Bag 10/26/2024 1:50 AM EDT 500 mg midazolam (PF) (VERSED) injection Intravenous, PRN - One Step Medication Only, Starting on 10/25/24 at 2254, Anesthesia Intra-op Given 10/26/2024 2:53 AM EDT 0.5 mg Given 10/25/2024 10:54 PM EDT 0.5 mg neostigmine methylsulfate (PROSTIGMIN) IV solution Intravenous, PRN - One Step Medication Only, Starting on 10/26/24 at 0608, Anesthesia Intra-op Given 10/26/2024 6:08 AM EDT 5 mg norepinephrine (LEVOPHED) 16 mg/250 mL (64 mcg/mL) infusion Intravenous, at 0-28.1 mL/hr, Continuous, Starting on 10/25/24 at 2030, For 24 hours, FOR O.R. USE ONLY. Titrate in O.R. based on MAP., Intra-op, To be given: intra-op Rate/Dose Change 10/26/2024 5:31 AM EDT 16 mcg/min 15 mL/hr Rate/Dose Change 10/26/2024 5:15 AM EDT 14 mcg/min 13.125 mL/hr Rate/Dose Change 10/26/2024 5:00 AM EDT 18 mcg/min 16.875 mL/hr norepinephrine (LEVOPHED) injection Intravenous, PRN - One Step Medication Only, Starting on 10/25/24 at 2337, Anesthesia Intra-op Given 10/26/2024 5:39 AM EDT 16 mcg Given 10/26/2024 5:02 AM EDT 16 mcg Given 10/26/2024 4:50 AM EDT 32 mcg phenylephrine (HUNG-SYNEPHRINE) injection Intravenous, PRN - One Step Medication Only, Starting on 10/25/24 at 2308, Anesthesia Intra-op Given 10/25/2024 11:13 PM EDT 100 mcg Given 10/25/2024 11:08 PM EDT 100 mcg potassium chloride (KCl)/Sterile water 100 mL 10 mEq/100 mL IVPB Intravenous, Administer over 60 Minutes, PRN - One Step Medication Only, Starting on 10/25/24 at 2345, Anesthesia Intra-op Given 10/26/2024 5:26 AM EDT 10 mEq Given 10/26/2024 4:59 AM EDT 10 mEq Given 10/26/2024 4:03 AM EDT 10 mEq propofol (DIPRIVAN) infusion 10 mg/mL Intravenous, Continuous - One Step Medications Only, Starting on 10/26/24 at 0515, Anesthesia Intra-op New Bag 10/26/2024 5:15 AM EDT 30 mcg/kg/min 22.05 mL/hr propofol 10 mg/ml (DIPRIVAN) injection Intravenous, PRN - One Step Medication Only, Starting on 10/25/24 at 2300, Anesthesia Intra-op Given 10/26/2024 6:12 AM EDT 50 mg Given 10/25/2024 11:00 PM EDT 200 mg sodium bicarbonate 8.4 % (1 mEq/mL) injection Intravenous, PRN - One Step Medication Only, Starting on 10/26/24 at 0337, Anesthesia Intra-op Given 10/26/2024 3:37 AM EDT 50 mEq Given 10/26/2024 3:16 AM EDT 50 mEq sodium chloride 0.9 % IV infusion Intravenous, Continuous - One Step Medications Only, Starting on 10/25/24 at 2330, Anesthesia Intra-op New 10/25/2024 11:30 PM EDT 50 mL/hr succinylcholine (QUELICIN) injection Intravenous, PRN - One Step Medication Only, Starting on 10/25/24 at 2301, Anesthesia Intra-op Given 10/25/2024 11:01 PM EDT 140 mg Transfuse Cryoprecipitate Routine Bag 10/26/2024 4:37 AM EDT Transfuse Cryoprecipitate Routine New Bag 10/26/2024 4:37 AM EDT Transfuse Fresh Frozen Plasma Routine New Bag 10/25/2024 11:46 PM EDT Transfuse Fresh Frozen Plasma Routine New Bag 10/26/2024 12:27 AM EDT Transfuse Fresh Frozen Plasma Routine New Bag 10/26/2024 12:27 AM EDT Transfuse Fresh Frozen Plasma Routine New Bag 10/26/2024 1:17 AM EDT Transfuse Fresh Frozen Plasma Routine New Bag 10/26/2024 1:40 AM EDT Transfuse Fresh Frozen Plasma Routine New Bag 10/26/2024 2:01 AM EDT Transfuse Fresh Frozen Plasma Routine New Bag 10/26/2024 2:23 AM EDT Transfuse Fresh Frozen Plasma Routine New Bag 10/26/2024 2:38 AM EDT Transfuse Fresh Frozen Plasma Routine New Bag 10/26/2024 3:15 AM EDT Transfuse Fresh Frozen Plasma Routine New Bag 10/26/2024 3:16 AM EDT Transfuse Fresh Frozen Plasma Routine New Bag 10/26/2024 3:46 AM EDT Transfuse Platelets Routine New Bag 10/26/2024 12:33 AM EDT Transfuse Platelets Routine New Bag 10/26/2024 4:14 AM EDT Transfuse RBC Routine New Bag 10/25/2024 11:45 PM EDT Transfuse RBC Routine New Bag 10/25/2024 11:45 PM EDT Transfuse RBC Routine New Bag 10/26/2024 12:30 AM EDT Transfuse RBC Routine New Bag 10/26/2024 12:55 AM EDT Transfuse RBC Routine New Bag 10/26/2024 1:39 AM EDT Transfuse RBC Routine New Bag 10/26/2024 1:45 AM EDT Transfuse RBC Routine New Bag 10/26/2024 1:45 AM EDT Transfuse RBC Routine New Bag 10/26/2024 2:01 AM EDT Transfuse RBC Routine New Bag 10/26/2024 2:39 AM EDT Transfuse RBC Routine New Bag 10/26/2024 3:13 AM EDT Transfuse RBC Routine New Bag 10/26/2024 3:13 AM EDT vasopressin (VASOSTRICT) 40 units in sodium chloride 0.9% 100 mL infusion Intravenous, at 3-9 mL/hr, Continuous, Starting on 10/25/24 at 2030, For 24 hours, FOR O.R. USE ONLY. Titrate in O.R. based on MAP. CENTRAL LINE PREFERRED, Intra-op, To be given: intra-op Rate/Dose Change 10/26/2024 2:44 AM EDT 0.04 Units/min 6 mL/hr Rate/Dose Change 10/26/2024 2:00 AM EDT 0.03 Units/min 4.5 mL/hr Rate/Dose Change 10/26/2024 12:19 AM EDT 0.04 Units/min 6 mL/hr vecuronium (NORCURON) injection Intravenous, PRN - One Step Medication Only, Starting on 10/25/24 at 2315, Anesthesia Intra-op Given 10/26/2024 4:59 AM EDT 10 mg Given 10/26/2024 2:57 AM EDT 10 mg Given 10/26/2024 12:45 AM EDT 10 mg documented in this encounter Additional Health Concerns Infection Onset Date Last Indicated Resolved Time C. difficile 09/09/2024 09/09/2024 10/27/2024 8:30 AM EDT Assessment Noted Time PHQ-9 Depression Total Score: 17 025 11:00 AM EDT documented as of this encounter Care Teams Fireproof Door Maker Relationship Specialty Start Date End Date Enedina Mcguire NP [address] [place] [address] PCP - General Internal Medicine 10/05/24 documented as of this encounter
--- OUTSIDE RECORDS SUMMARY | 2024-10-27 02:00 | XMS_ITS | Encounter Summary ---
Author Organization [facility] Address [address] [place] [address] Care Team Providers Care Golf Club Assembler Name Role Phone Enedina Mcguire NP Primary Care Provider [phone] Source Comments This information has been disclosed [...] release of HIV test results or diagnoses. [id number] Reason for Visit * Auth/Cert (Routine) Specialty Diagnoses / Procedures Referred By Shane hernadez Referred To Contact Surgical Intensive Care Diagnoses Liver transplant recipient (CMS-HCC) cirrhosis and CKD Procedures LIVER-KIDNEY TRANSPLANT [facility] SICU [address] [place] [address] Phone: tel: Referral ID Status Reason Start Date Expiration Date Visits Re quested Visits Authorized [id number] 1 1 Encounter Details Date Type Department Care Team (Late st Contact Info) Description 10/27/2024 2:00 AM EDT - 10/27/2024 6:54 AM EDT Surgery [facility] PERIOP [address] [place] [address] Semaj Mcnair III, MD [address] [facility] [address] [place] [address] Donor Kidney Transplant , Back Bench Preparation Donor Kidney, Baseline Kidney transplant biopsy , Insertion of Indwelling Stent , Removal of Perihepatic packing Surgery Details Date/Time Status Location OR Service Patient Class Case Cl ass Case Type Trauma Case? 10/27/2024 2:00 AM Posted OR 17 Transplant Inpatient Non Trauma Panel 1 Procedure LRB Anes Op Region Wound Class Comments Donor Kidney Transplant, Back Bench Preparation Donor Kidney, Baseline Kidney transplant biopsy, Insertion of Indwelling Stent, Removal of Perihepatic packing N/A General Endotracheal Clean Contaminated Surgeon Surgeon Role Service Panel Flaquito Ba MD Transplant 1 Semaj Mcnair III, MD Primary Transplant 1 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 smith documented in this encounter Social History Tobacco [...] Recorded In the past 12 months has [employer], oil, or water 3dplusme threatened to shut off services in your [...] Sign Reading Time Taken Comments Blood Pressure 117/75 10/27/2024 2:00 AM EDT Pulse 84 10/27/2024 2:00 AM EDT Temperature 36.8 C (98.2 F) 10/27/2024 1:43 AM EDT Respiratory Rate 16 10/27/2024 2:00 AM EDT Oxygen Saturation 100% 10/27/2024 2:00 AM EDT Inhaled Oxygen Concentration 100% 10/27/2024 2 :00 AM EDT Weight 122.5 kg (270 lb) [...] kept under 2 gm/day. Please discuss withyour cost coordinator if you have any question about appropriate dose to take. Other Instructions: Call post-liver transplant clinic with questions [phone] or call [facility] at [phone] and ask for the liver member services coordinator manager online if you experience any of the following: [...] Department Center 11/04/2024 8:40 AM LTRA SURGERY, [facility] LTRA HOX HOX 11/04/2024 10:10 AM LTRA HEPATORENAL HOX LTRA HOX HOX 11/25/2024 9:00 AM NAA Merida [facility] URO MAB MAB 12/02/2024 2:00 PM Bossman Hufmfan MD [facility] MARIANGEL MAB MAB 02/25/2025 10:50 AM Bruno Gonzalez MD [facility] HOX HOX documented in this encounter Medications [...] 10/27/2024 blood-glucose meter (TRUE METRIX GLUCOSE METER) [facility] Use to test blood sugar up to [...] AM EDT 10/27/2024 lancets (ACCU-CHEK SOFTCLIX LANCETS) [facility] Use to test blood sugar up to [...] capsule 5 10/27/2024 naloxone (NARCAN) 4 mg/actuation Noxon Apply 1 spray in one nostril if [...] tacrolimus and mycophenolate which were dispensed through [facility] Specialty per insurance requirements. [...] Expected caregiver involvement?: is primary med manager alliance Need for additional education in clinic?: routine reinforcement only Future medications to be obtained from, if known (select one): Tac/MMF to be filled from [facility] Specialty Pharm[facility] Financial concerns [...] Disp-15 mL, R-2 lancets (ACCU-CHEK SOFTCLIX LANCETS) [facility] Use to test blood sugar up to [...] Disp-30 tablet, R-0 naloxone (NARCAN) 4 mg/actuation Noxon Apply 1 spray in one nostril if [...] Solid Organ Transplant Clinical Specialist Contact via Omegawave Secure Chat * Froylan Hendrickson MD - 11/01/2024 8:04 AM EDT Liver Transplant Surgery Progress Note Name: Blair Gilbert CSN: [id number] Date: 11/01/2024 8:06 AM OR Date: 10/25/2024 [...] at 10/31/2024 4:38 PM EDT US Duplex Sah-Eqz-Nmhicpg Comp Result Date: 10/31/2024 IMPRESSION: RIGHT UPPER [...] - 10/27/2024. Plan: Liver transplant recipient ([facility]) [Z94.4] Neuro: - Multimodal pain control: [...] 3:24 PM EDT TXP - Follow Up [facility] Medical Nutrition Therapy Transplant Brief Note [...] high calorie protein supplement ([facility] and [facility] only) Pertinent Information: Pt seen for brief [...] Based on DBW of 93.1 kg Kcals/day: 5403-1484 (25-30 kcals/kg) Protein g/day: 140-190 (1.5-2.0 g/kg) [...] Dietitian - Solid Organ Transplant Contact via Omegawave Chat * Keon Dobson - 10/31/2024 2:35 PM EDT [facility] Spiritual Care Volunteer Visit PATIENT NAME: Blair Gilbert ROOM:[id number] Confucianism Affiliation:Religious Blair Gilbert was visited by a volunteer today. No needs requiring a visit from a staff underground bolting machine operator were expressed at that time. Care Provided: Communion, Prayer/ blessing Please page our service at [phone] as needs arise for patient and/or family. Fr Dean Dobson Religious underground bolting machine operator Spiritual Care Dept * Brittany Horne [...] issued by OT: Long-handled sponge, Sock aid, Merchandise Director, Other (comment) Equipment issued by OT comment: leg natural sciences professor Assessment Assessment: Decreased ADL status, Decreased IADLs, [...] Pt will complete bathing assessment and transfer long term acute care registered nurse goal to be met in: 2 weeks [...] Active Problem List Diagnosis Decompensated cirrhosis ([facility]) Acute kidney injury superimposed on CKD ([facility]) Alcohol use disorder Metabolic encephalopathy Hypertension Other hyperlipidemia Thrombocytopenia (CMS-HCC) Renal mass, left Abdominal pain Hypokalemia CKD (chronic kidney disease) stage 4, GFR 15-29 ml/min (CMS-HCC) Metabolic acidosis with normal anion gap and bicarbonate losses GERD (gastroesophageal reflux disease) Hypothyroidism Itching Anemia BRBPR (bright red blood per rectum) SBP (spontaneous bacterial peritonitis) ([facility]) C Diff Diarrhea [...] 0659 10/31/24 07 - 11/01/24 0659 Shift 4982-3862 5284-0379 7711-2736 24 Hour Total 6838-6391 5091-2335 5426-2532 24 Hour Total INTAKE P.O. 240 240 P.O. 240 240 Shift Total(mL/kg) 240(1.9) 240(1.9) OUTPUT Urine(mL/kg/hr) 1850(1.8) 600(0.6) 600(0.6) 3050(1) 350 350 Urine 800 681 283 4287 350 350 Urine Occurrence 2 x 2 [...] with further concerns Lavell Kramer MD 10/31/[phone] * Priti Geiger CNP - 10/31/2024 10:06 AM EDT Liver Transplant Surgery Progress Note Name: Blair Gilbert CSN: [id number] Date: 10/31/2024 10:06 AM OR Date: 10/25/2024 [...] 10/28/24 1109 LACTATE 0.3* Imaging US Duplex Qyd-Xon-Ethahfs Comp Result Date: 10/28/2024 IMPRESSION: ABDOMINAL ULTRASOUND [...] - 10/27/2024. Plan: Liver transplant recipient ([facility]) [Z94.4] Neuro: - Multimodal pain control: [...] Transplant Nephrology Progress Note Patient: Blair Gilbert [id number] [id number] Date of Admit: 10/25/2024. 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 Lauren Santos, SAMSON, EDUCATIONAL TECHNOLOGIST, ELECTRONIC FIELD SERVICE ENGINEER- Transplant Nephrology [phone] Preferred contact: secure chat The HPI, ROS, [...] 10/29/24699 - 10/30/2465810/30/24699 - 10/31/24 0659 Shift 1263-1710 4407-2965 9247-5486 24 Hour Total 1708-3232 1710-4081 1812-5637 24 Hour Total INTAKE P.O. 240 240 480 P.O. 240 240 480 IV Piggyback 87.2 87.2 Volume (mL) (micafungin (MYCAMINE) 50 mg in sodium chloride 0.9 % 100 mL Vlib9Ier IVPB) 87.2 87.2 Shift Total(mL/kg) 240(2) 327.2(2.7) 567.2(4.4) OUTPUT Urine(mL/kg/hr) 600(0.6) 1175(1.2) 450(0.4) 2225(0.7) 550 550 Output (mL) (IUC (Berkowitz) Triple-lumen (3-Way) 18 Fr.) 600 6442 528 5479 550 550 Drains 175 245 100 520 [...] month of prophylaxis Lavell Kramer MD 10/30/[phone] * Priti Geiger CNP - 10/30/2024 10:36 AM EDT Liver Transplant Surgery Progress Note Name: Blair Gilbert CSN: [id number] Date: 10/30/2024 10:37 AM OR Date: 10/25/2024 [...] 1109 LACTATE 0.5 0.3* Imaging US Duplex Gja-Ifg-Xnxkxvm Comp Result Date: 10/28/2024 IMPRESSION: ABDOMINAL ULTRASOUND [...] - 10/27/2024. Plan: Liver transplant recipient ([facility]) [Z94.4] Neuro: - Multimodal pain control: [...] Transplant Nephrology Progress Note Patient: Blair Gilbert [id number] 8025/U8025 Date of Admit: 10/25/2024. 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 Lauren Santos, DNP, EDUCATIONAL TECHNOLOGIST, ELECTRONIC FIELD SERVICE ENGINEER- Transplant Nephrology [phone] Preferred contact: secure chat The HPI, ROS, [...] EDT Pt seen, examined, and discussed with MACHINE BUNCH MAKER on 10/30/2024. reviewed the chart including the labs and imaging studies. My additional comments below. 39 y.o. 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 S/p SLK 10/25-10/26 Good uop Mild MA, will monitor for now for needs of po bicarb Aaron Gonzalez MD, MEd, FASN * Ben Weiss, RD - 10/29/2024 3:36 PM EDT TXP - Follow Up [facility] Medical Nutrition Therapy Follow-Up Diet Order/Nutrition [...] I/O: +23.3L net volume. Last BM Date: (machine captain). Admit Weight: 270 lb (122.5 kg) [...] (36.6 ??C) Heart Rate: [94-107] 98 Resp: [12-] 14 BP: (130-155)/(76-105) 147/97 Arterial Line BP: [...] Based on DBW of 93.1 kg Kcals/day: 7910-2959 (25-30 kcals/kg) Protein g/day: 140-190 (1.5-2.0 g/kg) [...] Dietitian - Solid Organ Transplant Contact via Omegawave Chat * Anita Carrascoradha, PT - 10/29/2024 2:04 PM EDT Physical Therapy Initial Assessment Name: Blair Gilbert : 1985 Attending Physician: Semaj Mcnair III, MD Admission Diagnosis: Liver transplant recipient (CMS-HCC) [Z94.4] Date: 10/29/2024 Room: [place] [address] [address] Reviewed Pertinent hospital course: Yes Hospital Course [...] with functional mobility at: 4/10 or less Jail Goal : Pt will ambulate 250' mod [...] transplant recipient (CMS-HCC) [Z94.4] Date: 10/29/2024 Room: [place] [address] [address] Reviewed Pertinent hospital course: Yes Hospital Course [...] Intervention(s): Ambulation/increased activity;Repositioned Therapist reported pain to: dehydrogenation converter operator Oxygen Supplemental Oxygen Supplemental Oxygen: None [...] Active Problem List Diagnosis Decompensated cirrhosis ([facility]) Acute kidney injury superimposed on CKD ([facility]) Alcohol use disorder Metabolic encephalopathy Hypertension Other hyperlipidemia Thrombocytopenia ([facility]) Renal mass, left Abdominal pain Hypokalemia CKD (chronic kidney disease) stage 4, GFR 15-29 ml/min ([facility]) Metabolic acidosis with normal anion gap and bicarbonate losses GERD (gastroesophageal reflux disease) Hypothyroidism Itching Anemia BRBPR (bright red blood per rectum) SBP (spontaneous bacterial peritonitis) ([facility]) C Diff Diarrhea C. difficile diarrhea Neck pain with history of cervical spinal surgery * Caron Santos CNP - 10/29/2024 10:30 AM EDT Images from the original note were not included. Transplant Nephrology Progress Note Patient: Blair Gilbert [id number] SICU-28/USIC-28 Date of Admit: 10/25/2024. 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 Lauren Santos, SAMSON, EDUCATIONAL TECHNOLOGIST, ELECTRONIC FIELD SERVICE ENGINEER- Transplant Nephrology [phone] Preferred contact: secure chat The HPI, ROS, [...] Surgery Progress Note Name: Blair Gilbert CSN: [id number] Date: 10/29/2024 10:08 AM OR Date: 10/25/2024 [...] LACTATE 0.4* 0.5 0.3* Imaging US Duplex Lya-Tfk-Wciynry Comp Result Date: 10/28/2024 IMPRESSION: ABDOMINAL ULTRASOUND [...] at 10/27/2024 10:38 AM EDT US Duplex Jtn-Hqm-Nftvpqi Comp Result Date: 10/27/2024 IMPRESSION: RIGHT UPPER [...] - 10/27/2024. Plan: Liver transplant recipient ([facility]) [Z94.4] Neuro: - Multimodal pain control: [...] SQH, SCDs DISPO: floor KENYETTA HARTMAN, MS4 [facility] General Surgery 10:08 AM 10/29/2024 Cosigned [...] Date 10/28/24699 - 10/29/2465810/29/24699 - 10/30/24658 Shift 0275-6431 9259-8075 6706-2562 24 Hour Total 7380-3975 1738-8352 5503-0256 24 Hour Total INTAKE P.O. 240 0 [...] IV infusion) 253.9 374.7 775.6 1404.2 Blood 5688 446 9749 Albumin 750 750 Volume (Transfuse RBC Transfusion Rate: Per dept routine) 310 310 Volume (Transfuse RBC Transfusion Rate: Per dept routine) 271 271 IV Piggyback 918.4 788 10 4267.4 Volume (mL) (micafungin (MYCAMINE) 50 mg in sodium chloride 0.9 % 100 mL Xsgv0Rtq IVPB) 99.9 99.9 Volume (mL) (albumin human [...] month of prophylaxis Lavell Kramer MD 10/29/[phone] * John Moreno MD - 10/29/2024 6:47 AM EDT SURGICAL ICU PROGRESS NOTE 10/29/2024 6:47 AM Name: Blair Gilbert [facility]: [id number] HPI: Blair Gilbert is a 39 y.o. [...] to 4 times a day. 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 DEXCOM [...] and at bedtime. lancets (ACCU-CHEK SOFTCLIX LANCETS) [facility] Use to test blood sugar up to 4 times a day. methocarbamoL (ROBAXIN) 500 MG tablet Take 1 tablet (500 mg total) by mouth 3 times a day. naloxone (NARCAN) 4 mg/actuation Noxon Apply 1 spray in one nostril if [...] 37 37 35 PO2ART 245* 182* 92 FTU7XDP 22 21* 21* BEART -4.2* -4.8* -4.6* [...] at baseline or with provocation, shows no zscof-oi-ordg atrial level shunt. - Pulmonary arteries: Systolic [...] Home pantoprazole 40mg daily, continue Last BM: GEOMATICS PROFESSOR - suppository today Bowel regimen: Miralax today, [...] results for input(s): TEGANGLE , TEGKTIME , CIKGRMRW13 , TEGMAXAMPL , TEGRTIME , CBMZ in [...] in sodium chloride 0.9 % 100 mL Kmgw5Mio IVPB 50 mg Every 24 hours 10/27/2024 -- Admin Instructions: PROTECT FROM LIGHT FLUSH LINE w/NSS PRIOR TO ADMINISTRATION Use Mhzl2Lmb Adapter - Mix Thoroughly Before Administration Route: [...] instability DC today Arterial Line? R radial [place]- DC today Urinary Catheter? Berkowitz - Reason: [...] BID Continuous Infusions: HYDROmorphone 6 mg/30 mL LPN RN norepinephrine 4 mcg/min (10/27/24 2318) sodium chloride [...] 0659 10/28/24 07 - 10/29/24 0659 Shift 3709-3558 8103-0344 2044-1898 24 Hour Total 9628-3239 2110-5743 7996-1723 24 Hour Total INTAKE P.O. 0 120 [...] in sodium chloride 0.9 % 100 mL Anmt9Vim IVPB) 100 100 Volume (mL) (albumin human 5%) 126 126 Volume (mL) (potassium chloride (KCl)/Sterile water 50 mL 20 mEq/50 mL IVPB 20 mEq) 100 100 Volume (mL) (AMPicillin 1 g in sodium chloride 0.9% 100 mL IVPB (Iygk5Pnv)) 100.1 57 42.9 200 Volume (mL) (mycophenolate (CELLCEPT) 500 mg in dextrose 5% in water (D5W) 50 mL IVPB) 50 5.3 55.3 Shift Total(mL/kg) 2079.3(17) 1161(9.5) 787.3(6.4) 4027.6(32.9) OUTPUT Urine(mL/kg/hr) 2195(2.2) 1000(1) 900(0.9) 4095(1.4) 490 490 Urine 360 360 Output (mL) (IUC (Berkowitz) Triple-lumen (3-Way) 18 Fr.) 1835 1549 031 0023 490 490 Emesis/NG output 50 50 Drainage [...] month of prophylaxis Lavell Kramer MD 10/28/[phone] * Caron Santos CNP - 10/28/2024 9:00 AM EDT Images from the original note were not included. Transplant Nephrology Progress Note Patient: Blair Gilbert [id number] SICU-28/USIC-28 Date of Admit: 10/25/2024. 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 Lauren Santos, SAMSON, EDUCATIONAL TECHNOLOGIST, ELECTRONIC FIELD SERVICE ENGINEER- Transplant Nephrology [phone] Preferred contact: secure chat The HPI, ROS, [...] EDT Pt seen, examined, and discussed with MACHINE BUNCH MAKER on 10/28/2024. reviewed the chart including the labs and imaging studies. My additional comments below. 39 y.o. 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 S/p SLK 10/25-10/26 Has great UOP 4.2L Aaron Gonzalez MD, MEd, FASN * Shay Plata MD - 10/28/2024 7:41 AM EDT Liver Transplant Surgery Progress Note Name: Blair Gilbert CSN: [id number] Date: 10/28/2024 11:05 AM OR Date: 10/25/2024 - 10/27/2024 Subjective: 1 Day Post-Op Received one unit pRBCs overnight On low dose levo this morning Increasing tachycardia Reports worsening pain, on LPN RN Tolerated sips of clears No nausea/vomiting, no [...] Oral BID Continuous: HYDROmorphone 6 mg/30 mL LPN RN norepinephrine Stopped (10/28/24 0637) sodium chloride 0.9 [...] at 10/27/2024 10:38 AM EDT US Duplex Ttz-Iez-Ruwitnj Comp Result Date: 10/27/2024 IMPRESSION: RIGHT UPPER [...] transplant biopsy, Insertion of Indwelling Stent, Removal of Perihepatic packing on 10/25/2024 - 10/27/2024. Plan: Liver transplant recipient ([facility]) [Z94.4] Neuro: - Multimodal pain control: dilaudid LPN RN, tylenol, robaxin. PRN dilaudid for breakthrough CV: [...] SCDs DISPO: SICU SHAY PLATA MD, MS4 [facility] Surgery 11:05 AM 10/28/2024 Cosigned by Lydia [...] 10/28/2024 6:17 AM Name: Blair Gilbert CSN: [id number] HPI: Blair Gilbert is a 39 y.o. [...] to 4 times a day. 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 DEXCOM [...] times a day. naloxone (NARCAN) 4 mg/actuation Noxon Apply 1 spray in one nostril if [...] Oral BID Continuous: HYDROmorphone 6 mg/30 mL LPN RN insulin regular in 0.9 % sodium chloride [...] 37 37 35 PO2ART 245* 182* 92 ONY5RFT 22 21* 21* BEART -4.2* -4.8* -4.6* [...] at baseline or with provocation, shows no povqv-jj-jucs atrial level shunt. - Pulmonary arteries: Systolic [...] while intubated,convert to PO today Last BM: GEOMATICS PROFESSOR Bowel regimen: Miralax today, hold senna til [...] ml IV Fluids: HYDROmorphone 6 mg/30 mL LPN RN insulin regular in 0.9 % sodium chloride, [...] ADDY HEMATOLOGIC Labs: Recent Labs 10/27/24171210/28/24 0005 10/28/243 WBC 4.9 4.9 4.5 HGB 7.4* 6.7* 7.3* HCT 21.4* 19.2* 21.0* MCV 87.6 87.8 87.8 PLT 47* 45* 38* No results for input(s): ANTIXALMWHEP in the last 72 hours. Recent Labs 10/27/24 0816 10/27/24171210/28/243 INR 1.2* 1.1 1.1 PROTIME 16.2* 15.2* 14.6 No results for input(s): TEGANGLE , TEGKTIME , SZGHYVPY80 , TEGMAXAMPL , TEGRTIME , CBMZ in [...] in sodium chloride 0.9% 100 mL IVPB (Wikz1Blz) (Completed) 1 g Every 6 hours scheduled 10/26/2024 10/28/2024 Admin Instructions: Dosage may need to be adjusted for renal dysfunction. Full dose is 1g IV q6h Use Egop4Spe Adapter - Mix Thoroughly Before Administration Notes to Pharmacy: On service order clerk estimated creatinine clearance is 35.9 [...] in sodium chloride 0.9 % 100 mL Tlwu6Cus IVPB 50 mg Every 24 hours 10/27/2024 -- Admin Instructions: PROTECT FROM LIGHT FLUSH LINE w/NSS PRIOR TO ADMINISTRATION Use Jjvx4Jgw Adapter - Mix Thoroughly Before Administration Route: [...] Score of [address] [facility] transplant protocol, I recommend discharging [...] the patient as needed. Hillary Fernandes PharmD, [facility] Solid Organ Transplant Clinical Specialist Contact via Omegawave Secure Chat Preferred O. [phone] * Chinedu Almeida RRT - 10/27/2024 1:10 [...] Yes MD Order No SBT No Yes Ash Coma Scale > 8 Yes Lab Results Component Value Date PHART 7.36 10/27/2024 PCO2 37 10/27/2024 PO2ART 245 (H) 10/27/2024 UDC2GYJ 22 10/27/2024 BEART -4.2 (L) 10/27/2024 OKL0UGO 96.5 10/27/2024 N3BBWNOC 100 10/27/2024 Based on this SBT assessment [...] Surgery Progress Note Name: Blair Gilbert CSN: [id number] Date: 10/27/2024 11:40 AM OR Date: 10/25/2024 - 10/27/2024 Subjective: * Day of Surgery * Remains intubated in SICU Sedated but appropriately nods to questions No acute distress Objective: BP 100/48 Pulse 89 Temp 99 ??F (37.2 ??C) ([place]) Resp 9 Ht 6' 4 (1.93 m) [...] at 10/27/2024 10:38 AM EDT US Duplex Tuv-Isr-Abkjeic Comp Result Date: 10/27/2024 IMPRESSION: RIGHT UPPER [...] Problem List[1] Plan: Liver transplant recipient ([facility]) [Z94.4] Neuro: - Propofol/fentanyl CV: - [...] SQH, SCDs DISPO: SICU KENYETTA HARTMAN, MS4 [facility] Surgery 11:40 AM 10/27/2024 [1] Patient Active Problem List Diagnosis Decompensated cirrhosis ([facility]) Acute kidney injury superimposed on CKD ([facility]) Alcohol use disorder Metabolic encephalopathy Hypertension Other hyperlipidemia Thrombocytopenia ([facility]) Renal mass, left Abdominal pain Hypokalemia CKD (chronic kidney disease) stage 4, GFR 15-29 ml/min ([facility]) Metabolic acidosis with normal anion gap and bicarbonate losses GERD (gastroesophageal reflux disease) Hypothyroidism Itching Anemia BRBPR (bright red blood per rectum) SBP (spontaneous bacterial peritonitis) ([facility]) C Diff Diarrhea C. difficile diarrhea Neck pain with history of cervical spinal surgery Cosigned by Semaj Mcnair III, MD at 10/30/2024 10:46 AM EDT Associated attestation - Semaj Mcnair III, MD - 10/30/2024 10:46 AM EDT I saw and evaluated the patient on 10/27/24, and discussed with the SAWYER/resident team. I agree with the SAYWER/resident???s findings and plan as documented in the [...] 10/27/2024 7:16 AM Name: Blair Gilbert CSN: [id number] HPI: Blair Gilbert is a 39 y.o. [...] times a day. naloxone (NARCAN) 4 mg/actuation [place]on Apply 1 spray in one nostril if [...] 001) PCO2: 37 (10/27/2412) PO2: (!) 137 (10/27/243) HCO3: (!) 20 (10/27/24 001) Base Excess: (!) -6.4 (10/27/24 0013) SaO2: 100 (10/27/24 001) Recent Labs 10/26/24 0610 10/26/24 1048 10/27/24 0013 PHART 7.27* 7.37 7.32* PCO2 47* 36 37 PO2ART 127* 91 137* UEB3FVU 21* 22 20* BEART -5.4* -3.9* -6.4* [...] at baseline or with provocation, shows no fsund-bp-vuvp atrial level shunt. - Pulmonary arteries: Systolic [...] IV pantoprazole while intubated, NPO Last BM: GEOMATICS PROFESSOR Bowel regimen: Senna/Miralax when able Nausea: Zofran [...] 10/27/2024 0715 Gross per 24 hour Intake 33099.82 ml Output 7060 ml Net 6224.82 ml [...] results for input(s): TEGANGLE , TEGKTIME , HPHVNMTO21 , TEGMAXAMPL , TEGRTIME , CBMZ in [...] in sodium chloride 0.9% 100 mL IVPB (Wqae0Hrt) 1 g Every 6 hours scheduled / Admin Instructions: Dosage may need to be adjusted for renal dysfunction. Full dose is 1g IV q6h Use Fygx0Fpz Adapter - Mix Thoroughly Before Administration Notes to Pharmacy: On service order clerk estimated creatinine clearance is 35.9 mL/min (A) (based on SCr of 3.87 mg/dL (H)). Route: Intravenous Linked Group 1: Placed in And Linked Group cefTRIAXone (ROCEPHIN) 2 g in sodium chloride 0.9 % 100 mL [id number] Continuous - One Step Medications Only 10/27/2024 [...] R IJ Mac Arterial Line? R radial [place] Urinary Catheter? 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 naloxone (NARCAN) 4 mg/actuation Noxon Apply 1 spray in one nostril if [...] Resource Strain: Low Risk (07/09/2024) Received from [facility] Overall Financial Resource Strain [...] Received from [facility] Exercise Vital Sign Days of Exercise per Week: Patient unable to answer Minutes of Exercise per Session: Not on file Stress: Patient Unable To Answer (07/14/2024) Received from [facility] [place] of Occupational Health - Occupational Stress Questionnaire Feeling of Stress : Patient unable to answer Social Connections: Patient Unable To Answer (07/14/2024) Received from [facility] Social Connection and Isolation Panel [NHANES] [...] -- 5.4 ALBUMIN 3.2* 3.1* Invalid input(s): [facility] Other labs: Imaging Studies No results found. [...] admitted to SICU post-op. LEANDRA OG MD [facility] Surgery Liver Transplant Pager: [phone] 8:24 PM 10/25/2024 Cosigned by Semaj [...] Name: Blair Gilbert Date: 1985 Billing #: [id number] Date of Procedure: 10/25/2024 Diagnosis: End Stage Renal Disease Procedure: 1. Donor Kidney Transplant 2. Back Bench Preparation Donor Kidney 3. Baseline Kidney transplant biopsy 4. Insertion of Indwelling Stent 5. Removal of Perihepatic packing Surgeons * Flaquito Ba MD Lactation Nurse MD Shayan Findings: Low Hockey stick incision [...] donor was ABO O and UNOS ID [id number], Match Run [id number] ([facility]). This donor was a Donor [...] was then wanded with the lap detection assignment desk assistant. The incision was ex tented 2 [...] and closure. Flaquito Ba MD Transplant Surgeon agency trainer * Flaquito Ba MD - 10/27/2024 6:15 AM EDT TRANSPLANT KIDNEY with bile duct reconstruction Brief Op Note Blair Gilbert 10/27/2024 Pre-op Diagnosis: Acute kidney injury superimposed on CKD (CMS-HCC) [N17.9, N18.9] Post-op Diagnosis: same Procedure(s): TRANSPLANT KIDNEY Surgeon(s): MD Semaj Washington III, MD Anesthesia: General Endotracheal Staff: Heating Engineer: Chinedu Quinn RN Scrub Person: ST Angela Fellow: Kemar Sahni MD 2nd Heating Engineer: Marty Clark RN 3rd Heating Engineer: Candis Mcdaniel RN FINDINGS Berkowitz 3 day Drains: Intraabdominal (perihepatic) UNOS ID [id number], Match Run [id number] Kid WIT 27 min Kid CIT 33 [...] (Berkowitz) Triple-lumen (3-Way) 18 Fr. (Active) Status [place] [facility]age 10/26/241999 Collection Container Standard drainage [...] Washington III, MD Anesthesia: General Endotracheal Staff: Heating Engineer: Chinedu Quinn RN Relief Heating Engineer: Michela Amos RN Relief Scrub: Stephani Blake RN Scrub Person: ST Angela Fellow: Kemar Sahni MD 2nd Heating Engineer: Marty Clark RN 3rd Heating Engineer: Candis Mcdaniel RN Estimated Blood Loss: [...] (Berkowitz) Triple-lumen (3-Way) 18 Fr. (Active) Status [place] [facility] 10/26/241999 Collection Container Standard drainage [...] day Drains: 2 Intraabdominal (perihepatic) UNOS ID [id number], Match Run [id number] Donor: young DCD NRP Kid WIT 27 [...] - 10/27/2024 12:00 AM EDT [facility] PATIENT NAME: BLAIR GILBERT DATE OF : 1985 CSN: [id number] PHYSICIAN: Semaj Mcnair III, MD ADMIT DATE: 10/25/2024 DICTATED BY: Semaj Mcnair III, MD SURGERY DATE: 10/27/2024 OPERATIVE REPORT SURGEON: Semaj Mcnair III, MD [employer] SALES CONSULTANT SURGEON: Kemar Sahni MD. PREOPERATIVE DIAGNOSIS: [...] were made hemostatic with the argon beam metal roofing mechanic. We assessed the flows of the portal [...] a mucocele formation. We then performed a nyqh-mj-hycg choledochocholedochostomy in an end to end fashion [...] small umbilicalhernia that was closed with a scxsdb-lh-ztvhc 0 PDS suture. At this point, we [...] complications. SEMAJ MCNAIR III, MD RCQ/AQ JOB#: [id number] * Semaj Mcnair III, MD - 10/26/2024 7:00 AM EDT Patient Name: Blair Gilbert Date: 1985 Billing #: [id number] Date of Procedure: 10/25/2024 - 10/26/2024 Diagnosis: Chronic Hepatic Failure without coma Procedure: 1. Orthotopic Liver Transplant 2. Back Bench Preparation Donor Liver 3. Temporary portocaval shunt 4. Perihepatic packing for control of hemorrhage 5. Placement of external choledochal stent 6. Temporary abdominal closure Attending surgeons: Semaj Mcnair III, MD Lactation Nurse Surgeon(s): Sveta Judge MD Findings: Whole organ placed in piggyback fashion with suprahepatic cava of donor to common orifice of all three hepatic veins for IVC anastomosis. Donor main portal vein to recipient main portal vein. Donor common hepatic artery to recipient right hepatic artery. Temporary abdominal with perihepatic packingfor control of hemorrhage. Externalization of bile duct with 8 Urdu pediatric feeding tube. Portal Flow Modulation No [...] This donor was ABO O and UNOSID [id number], Match Run [id number]. This was a 42-year-old donation after circulatory [...] do a temporary abdominal closure. An 8 Urdu pediatric feeding tube was brought through the [...] Sveta Alves III, MD Anesthesia: General Staff: Heating Engineer: Mak Maher RN; Marty Clark RN Scrub Person: ST Angela Resident: Thuy Leon MD gas engine performance engineer: Jose Daniel Arana, RONALDO Estimated Blood Loss: [...] Number of days: 5 Surgery Information: -UNOS#: [id number] -ABO: O to O -Recipient: SLK candidate [...] 1:19 PM EDTAssociated Order(s): IP CONSULT TO SUPERVISOR PAINTING DEPARTMENT [facility] Transplant Discharge Education Note Assessment: Received [...] Gomez, MSN, RN, NPD- Diabetes Education Office [phone] Schedule: M-F 8:00am-4:30pm * Ben Jose Weiss, RD - 10/27/2024 4:06 PM EDTAssociated Order(s): IP CONSULT TO NUTRITION SERVICES; IP CONSULT TO NUTRITION SERVICES TXP - Initial [facility] Medical Nutrition Therapy Reason(s) for Completion: [...] I/O: +23.2L net volume. Last BM Date: (GEOMATICS PROFESSOR). Admit Weight: 270 lb (122.5 kg) Current [...] Based on DBW of 93.1 kg Kcals/day: 0660-5727 (25-30 kcals/kg) Protein g/day: 140-190 (1.5-2.0 g/kg) [...] Dietitian - Solid Organ Transplant Contact via Omegawave Chat * Lavell Kramer MD - 10/27/2024 11:09 AM EDTAssociated Order(s): INPATIENT CONSULT TO TRANSPLANT INFECTIOUS DISEASES Infectious Disease Consultation Patient: Blair Gilbert CSN: [id number] Assessment & Plan 39 y.o. M s/p [...] blood cx's if febrile Lavell Kramer MD [phone] Chief Complaint Long Qtc History of Present [...] LABS; Service: Cath; Laterality: N/A; Family History History reviewed. No [...] Resource Strain: Low Risk (07/09/2024) Received from [facility] Overall Financial Resource Strain [...] Received from [facility] Exercise Vital Sign Days of Exercise per Week: Patient unable to answer Minutes of Exercise per Session: Not on file Stress: Patient Unable To Answer (07/14/2024) Received from [facility] [place] of Occupational Health - Occupational Stress Questionnaire Feeling of Stress : Patient unable to answer Social Connections: Patient Unable To Answer (07/14/2024) Received from [facility] Social Connection and Isolation Panel [NHANES] [...] to 4 times a day. 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 DEXCOM [...] times a day. 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 No indications for CYLINDER TESTER. Good UOP - Noted KT US WNL [...] preliminary until attending attestation. Lauren Santos, SAMSON, EDUCATIONAL TECHNOLOGIST, ELECTRONIC FIELD SERVICE ENGINEER- Transplant Nephrology [phone] Preferred contact: secure chat [1] Allergies Allergen [...] Gonzalez MD, MEd, FASN * Marcellus Hebert, BIRTH ATTENDANT, FLEET ASSISTANT - 10/27/2024 10:21 AM EDT HEALTH Care Management/Social Work Assessment Patient Information Patient Name: Blair Gilbert Hospital Day: 2 Inpatient/Observation: Inpatient Admit Date: 10/25/2024 Admission Diagnosis: Liver transplant recipient (CMS-HCC) [Z94.4] Attending provider: Semaj Mcnair III, MD PCP: Enedina Mcguire NP [facility]acy[facility] [address] [place] [address] [facility] [address] [place] [address] Issues related to obtaining medications: N/A Payor Information Medical Insurance Coverage: Payor: [facility] / Plan: [facility] / Product Type: *No [...] History: 12 weeks of CD Treatement at [facility] Do you need Substance Abuse Treatment Resources?: [...] No Status & Connection to [facility] Services [place] Status & Connection to VA Services Are [...] currently resides with his spouse [facility] [place]. 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 Patient's LNOK:Spouse, Abdiaziz Gilbert, Patient has no current or past history of suicidal/homicidal ideation. Patient has a history of mental health diagnoses, PTSD and Generalized Anxiety Disorder. Patient is connected with TransplantPsychiatrist and prescribed Prozac. Patient has a history of alcohol use and has completed 12 weeksof CD Treatment at [facility]. Spouse explained that he will [...] as appropriate. NUBIA Escalera, RONALDO Phone Number: [phone] * John Moreno MD - 10/26/2024 3:41 AM EDT SURGICAL ICU CONSULT NOTE 10/26/2024 3:41 AM Name: Blair Gilbert CSN: [id number] HPI: Blair Gilbert is a 39 y.o. [...] at 9:00 PM naloxone (NARCAN) 4 mg/actuation Noxon Apply 1 spray in one nostril if [...] % 250 mL infusion 2.5 mcg/min (10/26/24 9844) insulin regular in 0.9 % sodium chloride norepinephrine 18 mcg/min (10/26/24 789) vasopressin 0.04 Units/min (10/26/24 0244) PRN Meds: [...] input(s): PHART , PCO2 , PO2ART , OIF3FUX , BEART in the last 72 hours. [...] at baseline or with provocation, shows no bnmce-mn-oczc atrial level shunt. - Pulmonary arteries: Systolic [...] IV pantoprazole while intubated, NPO Last BM: GEOMATICS PROFESSOR Bowel regimen: Senna/Miralax when able Nausea: Zofran PRN FLUID/ELECTROLYTES Recent Labs 10/25/24 2217 NA 137 K 2.1* CL 100 CO2 20* BUN 74* CREATININE 3.87* CALCIUM 9.3 PHOS 5.9* GLUCOSE 114* Intake/Output Summary (Last 24 hours) at 10/26/2024 0341 Last data filed at 10/26/2024 0326 Gross per 24 hour Intake 17414 ml Output 675 ml Net 15325 ml IV Fluids: EPINEPHrine (ADRENALIN) 10 mg [...] edema A/P: ADDY HEMATOLOGIC Labs: Recent Labs 10/25/247 10/25/24 2340 10/26/24 0039 10/26/24 0140 WBC 6.2 -- -- -- HGB 8.3* 6.6* 7.9* 7.4* HCT 23.7* 19.0* 23.0* 22.0* MCV 98.9 -- -- -- PLT 56* -- -- -- No results for input(s): ANTIXALMWHEP in the last 72 hours. Recent Labs 10/25/242216 INR 1.8* PROTIME 21.7* No results for input(s): TEGANGLE , TEGKTIME , OKYUXWGX23 , TEGMAXAMPL , TEGRTIME , CBMZ in [...] in sodium chloride 0.9% 100 mL IVPB (Avxe4Sme) 2 g Every 6 hours 10/26/2024 -- Admin Instructions: Use Ltaa5Elr Adapter - Mix Thoroughly Before Administration Notes to Pharmacy: On service order clerk estimated creatinine clearance is 35.9 mL/min (A) (based on SCr of 3.87 mg/dL (H)). Route: Intravenous AMPicillin 2 g in sodium chloride 0.9% 100 mL IVPB (Ydzs3Zid) 2 g Once 10/26/2024 -- Admin Instructions: Use Gtqk4Ljn Adapter - Mix Thoroughly Before Administration Notes to Pharmacy: On service order clerk estimated creatinine clearance is 35.9 mL/min (A) (based on SCr of 3.87 mg/dL (H)). Route: Intravenous cefTRIAXone (ROCEPHIN) 2 g in sodium chloride 0.9 % 100 mL Wllw7Whe (Completed) 2 g Once 10/25/2024 10/26/2024 Admin Instructions: Use Qveb8Fcc Adapter - Mix Thoroughly Before Administration Route: [...] 47 (H) 10/26/2024 PO2ART 127 (H) 10/26/2024 KOL3CQU 21 (L) 10/26/2024 BEART -5.4 (L) 10/26/2024 XDA4YPH 94.6 (L) 10/26/2024 C1DWTCWC 98 10/26/2024 P:F ratio = 363 CARDIOVASCULAR: [...] Acute Care Surgery, and Surgical Critical Care [facility] Academic Office [phone] For Transfers, call [phone] documented in this encounter Nursing Notes * [...] Progressing * Care Coordination - NUBIA Escalera, FLEET ASSISTANT - 10/31/2024 11:34 AM EDT [facility] Case Management/Social Work Department Progress Note Patient Information Patient Name: Blair Gilbert Hospital day: 6 Inpatient/Observation: Inpatient Level of Care: Transplant Admit date: 10/25/2024 Admission diagnosis: Liver transplant recipient (CMS-HCC) [Z94.4] PMH: has a past medical history of Alcoholic cirrhosis of liver (CMS-HCC), Esophageal varices (CMS-HCC), Hepatorenal syndrome (CMS-HCC), Hypertension, Other hyperlipidemia (07/26/2024), Renal cell carcinoma (CMS-HCC), Thrombocytopenia ([facility]), and Thyroid disease. PCP: Enedina Mcguire NP Home [facility]acy: [facility] [address] [place] [address] [facility] [address] [facility] [address] [facility] NAA Bamu - [address] [facility] [address] [place] [address] Medical Insurance Coverage: Payor: [employer] [facility] [facility] [...] educator aware that there were no accepting [facility] agencies([facility], [facility], [facility]) and patient would need to outpatient for PT/OT and labs. Discharge Plan Anticipated discharge plan: Home with [facility] vs Home with outpatient Anticipated discharge date: 11/01 CM/SW will continue to follow and remain available for discharge planning needs. NUBIA Escalera, RONALDO Cell [phone] * Plan of Care - Paulette Flannery [...] Citlaly Nova - 10/29/2024 1:53 PM EDT [facility] Case Management/Social Work Department Progress [...] disease. PCP: Enedina Mcguire NP Home Pharmacy: [facility] [address], [facility] [address] [address] [facility] [address] [facility] [address] [facility] [place] - Deya [place] - [address] [place] [address] [place] [place] [id number] Medical Insurance Coverage: Payor: [employer] [facility] [...] SW submitted blanket HHC referral to [facility] [employer] [facility], [facility], [employer] [facility], and [facility]. Awaiting responses. SW to followpending clearance [...] available for discharge planning needs. NUBIA Rhodes, FLEET ASSISTANT Inpatient Dioramist/Care Coordination [phone] * Plan of Care - Soco Yap [...] Escalera LSW - 10/28/2024 2:29 PM EDT [facility] Case Management/Social Work Department Progress Note Patient Information Patient Name: Blair Gilbert Hospital day: 3 Inpatient/Observation: Inpatient Level of Care: Transplant Admit date: 10/25/2024 Admission diagnosis: Liver transplant recipient ([facility]-HCC) [Z94.4] PMH: has a past medical history of Alcoholic cirrhosis of liver (CMS-HCC), Esophageal varices (CMS-HCC), Hepatorenal syndrome (CMS-HCC), Hypertension, Other hyperlipidemia (07/26/2024), Renal cell carcinoma (CMS-HCC), Thrombocytopenia (CMS-HCC), and Thyroid disease. PCP: Enedina Mcguire NP Home Pharmacy: [facility] [address] [facility] [address] [place] [id number] [address] [address] [facility] [address] [facility] [address] [facility] [place] - [place] - [address] [place] [address] [place] [facility] [id number] Medical Insurance Coverage: Payor: [facility] / Plan: [employer] [...] discharge planning needs. NUBIA Escalera, RONALDO Cell [phone] * Plan of Care - Elaine Carrillo [...] at all times. Outcome: Completed Problem: Non-violent, vcb-vrtl-sibicsylelg restraints Description: Less restrictive alternative interventions will [...] of medical procedures, or protection of medical scheduler access. Outcome: Completed * Plan of Care [...] foods as appropriate. Outcome: Progressing Problem: Non-violent, lwc-tqix-hcpevvqpoli restraints Description: Less restrictive alternative interventions will [...] of medical procedures, or protection of medical scheduler access. Outcome: Progressing * Plan of Care - Shanel Shen RN - 10/27/2024 9:00 AM EDT Problem: Non-violent, hsy-kjqt-kvtcyndteew restraints Description: Less restrictive alternative interventions will [...] - 10/26/2024 7:41 PM EDT Problem: Non-violent, rgl-aucn-avouumhyxdi restraints Description: Less restrictive alternative interventions will [...] of medical procedures, or protection of medical scheduler access. Outcome: Not Progressing Patient in bilateral [...] restraint flowsheet for further documentation. Problem: Non-violent, gro-hvml-nkxlhcjhblr restraints Description: Less restrictive alternative interventions will [...] of medical procedures, or protection of medical scheduler access. Outcome: Progressing * Plan of Care [...] Description 12/05/2024 8:01 AM EDT Hospital Encounter [facility] ENDOSCOPY [address] [place] [address] Chris Orosco MD [address] [place] [phone] 12/05/2024 8:01 AM EDT - 12/05/2024 8:31 AM EDT Surgery [facility] ENDOSCOPY [address] [place] [address] Chris Orosco MD [address] [place] [phone] EGD Pending Results Name Type Priority Associated [...] Routine 10/31/2024 11:59 AM EDT US DUPLEX DYB-RAIHBA-PUIOOVK COMPLETE Routine 10/31/2024 10:19 AM EDT US [...] Routine 10/28/2024 5:31 PM EDT US DUPLEX IMR-EHLRFN-IVKTAXG COMPLETE STAT 10/28/2024 4:23 PM EDT US [...] Routine 10/27/2024 10:00 AM EDT US DUPLEX FUD-KXURLK-MEFKJEC COMPLETE STAT 10/27/2024 9:51 AM EDT US [...] Acute kidney injury superimposed on CKD (CMS-HCC) [place] RENAL ALTRNSPLJ IMPLTJ GRF W/PATIENT ACCESS MANAGER NEPHRECTOMY 10/27/2024 2:32 AM EDT Acute kidney [...] URINE CULTURE Routine 10/25/2024 11:08 PM EDT XR PORTABLE CHEST STAT 10/25/2024 10:19 PM [...] - 100 mg/dL 11/02/2024 5:45 PM EDT [facility] Blood 11/02/2024 5:44 PM EDT 11/02/2024 5:45 PM EDT us Semaj Mcnair III, MD POINT OF CARE TEST ORDERABLES Final Result Performing Organization Address City/[facility]/ZIP Co de Phone Number [facility] [address] [place] [address] * (ABNORMAL) POC Glucose Monitoring Device (11/02/2024 3:34 PM EDT) POC Glucose Monitoring Device 208(H) 70 - 100 mg/dL 11/02/2024 3:35 PM EDT [facility] Blood 11/02/2024 3:3 4 PM EDT 11/02/2024 3:35 PM EDT us Semaj Mcnair III, MD POINT OF CARE TEST ORDERABLES Final Result [facility] [address] * (ABNORMAL) POC Glucose Monitoring Device (11/02/2024 1:18 PM EDT) POC Glucose Monitoring Device 225(H) 70 - 100 mg/dL 11/02/2024 1:19 PM EDT [facility] Blood 11/02/2024 1:18 PM EDT 11/02/2024 1:19 PM EDT Semaj Mcnair III, MD POINT OF CARE TEST ORDERABLES Final Result Performing Organization Address City/[facility] Co de Phone Number [facility] [address] [place] [address]. [address] * (ABNORMAL) POC Glucose Monitoring Device (11/02/2024 8:59 AM EDT) POC Glucose Monitoring Device 129(H) 70 - 100 mg/dL 11/02/2024 9:00 AM EDT [facility] Blood 11/02/2024 8:59 AM EDT 11/02/2024 9:00 AM EDT Semaj Mcnair III, MD POINT OF CARE TEST ORDERABLES Final Result Performing Organization Address [facility] de Phone Number [address] * Tacrolimus level (11/02/2024 5:53 AM EDT) Tacrolimus (LC-MS) 7.4 3.0 - 15.0 ng/mL 11/02/2024 2:23 PM EDT [facility] Comment:Performed via liquid chromatography tandem mass spectrometry. Detection limit: 1 ng/mL. Individual target concentrations may vary due to target organ and time after transplant. This test has been developed and its performance characteristics determined by [facility] which is certified under [...] EDT 11/02/2024 6:12 AM EDT us Hillary Hensleysarah PharmD LAB BLOOD ORDERABLES Denisse l Result [facility] [address] [place] [address], [facility] * (ABNORMAL) Renal Function Panel w/EGFR (11/02/2024 5:53 AM EDT) Sodium 140 133 - 146 mmol/L 11/02/2024 6:47 AM EDT [facility] Potassium 3.3(L) 3.5 - 5.3 mmol/L 11/02/2024 6:47 AM EDT [facility] Chloride 107 98 - 110 mmol/L 11/02/2024 6:47 AM EDT [facility] CO2 25 21 - 33 mmol/L 11/02/2024 6:47 AM EDT [facility] Anion Gap 8 3 - 16 mmol/L 11/02/2024 6:47 AM EDT [facility] BUN 31(H) 7 - 25 mg/dL 11/02/2024 6:47 AM EDT [facility] Creatinine 1.08 0.60 - 1.30 mg/dL 11/02/2024 6:47 AM EDT [facility] Glucose 150(H) 70 - 100 mg/dL 11/02/2024 6:47 AM EDT [facility] Calcium 7.8(L) 8.6 - 10.3 mg/dL 11/02/2024 6:47 AM EDT [facility] Phosphorus 2.0(L) 2.1 - 4.7 mg/dL 11/02/2024 6:47 AM EDT [facility] Albumin 3.2(L) 3.5 - 5.7 g/dL 11/02/2024 6:47 AM EDT [facility] Osmolality, Calculated 299 278 - 305 mOsm/kg 11/02/2024 6:47 AM EDT [facility] EGFR 88 11/02/2024 6:47 AM EDT [facility] Comment:As of 2021, the [...] 6:12 AM EDT Beata Dada Horner [facility] BLOOD ORDERABLES Denisse l Result Performing Organization Address [facility] de Phone Number [facility] [address] [place] [address] * (ABNORMAL) Magnesium (11/02/2024 5:53 AM EDT) Magnesium 1.3(L) 1.5 - 2.5 mg/dL 11/02/2024 6:47 AM EDT [facility] Plasma 11/02/2024 5:53 AM EDT 11/02/2024 6:12 AM EDT Beata Dada Horner [facility] BLOOD ORDERABLES Denisse l Result Performing Organization Address [facility] [place] Co de Phone Number [facility] [address] [place] [address] * (ABNORMAL) Hepatic Function Panel (11/02/2024 5:53 AM EDT) Total Bilirubin 1.6(H) 0.0 - 1.5 mg/dL 11/02/2024 6:47 AM EDT [facility] Bilirubin, Direct 0.81(H) 0.00 - 0.40 mg/dL 11/02/2024 6:47 AM EDT [facility] AST 30 13 - 39 U/L 11/02/2024 6:47 AM EDT [facility] ALT 66(H) 7 - 52 U/L 11/02/2024 6:47 AM EDT [facility] Alkaline Phosphatase 126(H) 36 - 125 U/L 11/02/2024 6:47 AM EDT [facility] Total Protein 4.6(L) 6.4 - 8.9 g/dL 11/02/2024 6:47 AM EDT [facility] Albumin 3.2(L) 3.5 - 5.7 g/dL 11/02/2024 6:47 AM EDT [facility] Bilirubin, Indirect 0.79 0.00 - 1.10 mg/dL 11/02/2024 6:47 AM EDT [facility] Plasma 11/02/2024 5:53 AM EDT 11/02/2024 6:12 AM EDT us Beata Horner MACHINE BUNCH MAKER LAB BLOOD ORDERABLES Denisse valle Result Performing Organization Address City/State/[facility] Co de Phone Number [facility] [address] * (ABNORMAL) CBC (11/02/2024 5:53 AM EDT) WBC 5.8 3.8 - 10.8 10E3/uL 11/02/2024 6:21 AM EDT [facility] RBC 3.12(L) 4.20 - 5.80 10E6/uL 11/02/2024 6:21 AM EDT [facility] Hemoglobin 9.2(L) 13.2 - 17.1 g/dL 11/02/2024 6:21 AM EDT [facility] Hematocrit 27.5(L) 38.5 - 50.0 % 11/02/2024 6:21 AM EDT [facility] MCV 87.9 80.0 - 100.0 fL 11/02/2024 6:21 AM EDT [facility] MCH 29.5 27.0 - 33.0 pg 11/02/2024 6:21 AM EDT [facility] MCHC 33.5 32.0 - 36.0 g/dL 11/02/2024 6:21 AM EDT [facility] RDW 17.5(H) 11.0 - 15.0 % 11/02/2024 6:21 AM EDT [facility] Platelets 61(L) 140 - 400 10E3/uL 11/02/2024 6:21 AM EDT [facility] MPV 7.9 7.5 - 11.5 fL 11/02/2024 6:21 AM EDT [facility] Whole Blood 11/02/2024 5:53 AM EDT 11/02/2024 6:12 AM EDT Beata Horner [facility] BLOOD ORDERABLES Denisse l Result [facility] [address] [facility]. [address] * (ABNORMAL) POC Glucose Monitoring Device (11/01/2024 9:26 PM EDT) POC Glucose Monitoring Device 199(H) 70 - 100 mg/dL 11/01/2024 9:27 PM EDT [facility] Blood 11/01/2024 9:26 PM EDT 11/01/2024 9:27 PM EDT Semaj Mcnair III, MD POINT OF CARE TEST ORDERABLES Final Result Performing Organization Address City/[facility]/ZIP Co de Phone Number [facility] [address] * (ABNORMAL) POC Glucose Monitoring Device (11/01/2024 5:04 PM EDT) POC Glucose Monitoring Device 255(H) 70 - 100 mg/dL 11/01/2024 5:05 PM EDT [facility] Blood 11/01/2024 5:04 PM EDT 11/01/2024 5:05 PM EDT Semaj Mcnair III, MD POINT OF CARE TEST ORDERABLES Final Result [facility] [address] [place] [address], [facility] * (ABNORMAL) Renal Function Panel w/EGFR, STAT (11/01/2024 2:17 PM EDT) Sodium 139 133 - 146 mmol/L 11/01/2024 3:10 PM EDT [facility] Potassium 3.3(L) 3.5 - 5.3 mmol/L 11/01/2024 3:10 PM EDT [facility] Chloride 107 98 - 110 mmol/L 11/01/2024 3:10 PM EDT [facility] CO2 24 21 - 33 mmol/L 11/01/2024 3:10 PM EDT [facility] Anion Gap 8 3 - 16 mmol/L 11/01/2024 3:10 PM EDT [facility] BUN 35(H) 7 - 25 mg/dL 11/01/2024 3:10 PM EDT [facility] Creatinine 1.22 0.60 - 1.30 mg/dL 11/01/2024 3:10 PM EDT [facility] Glucose 203(H) 70 - 100 mg/dL 11/01/2024 3:10 PM EDT [facility] Calcium 8.3(L) 8.6 - 10.3 mg/dL 11/01/2024 3:10 PM EDT [facility] Phosphorus 2.2 2.1 - 4.7 mg/dL 11/01/2024 3:10 PM EDT [facility] Albumin 3.4(L) 3.5 - 5.7 g/dL 11/01/2024 3:10 PM EDT [facility] Osmolality, Calculated 302 278 - 305 mOsm/kg 11/01/2024 3:10 PM EDT [facility] EGFR 76 11/01/2024 3:10 PM EDT [facility] Comment:As of 2021, the [...] Marks MD LAB BLOOD ORDERABLES Final Result [facility] [address] [place] [address], [facility] * X-ray Portable Abdomen AP view (11/01/2024 [...] - 100 mg/dL 11/01/2024 12:23 PM EDT [facility] Blood 11/01/2024 12:2 2 PM EDT 11/01/2024 12:23 PM EDT Semaj Mcnair III, MD POINT OF CARE TEST ORDERABLES Final Result Performing Organization Address [facility]/ZIP Co de Phone Number [facility] [address] [place] [address] * (ABNORMAL) POC Glucose Monitoring Device (11/01/2024 8:50 AM EDT) POC Glucose Monitoring Device 175(H) 70 - 100 mg/dL 11/01/2024 8:51 AM EDT [facility] Blood 11/01/2024 8:50 AM EDT 11/01/2024 8:51 AM EDT Semaj Mcnair III, MD POINT OF CARE TEST ORDERABLES Final Result Performing Organization Address City/[facility]/ZIP Co de Phone Number [facility] [address] [place] [address] * Tacrolimus level (11/01/2024 6:01 AM EDT) Tacrolimus (LC-MS) 7.5 3.0 - 15.0 ng/mL 11/01/2024 12:14 PM EDT [facility] Comment:Performed via liquid chromatography tandem mass spectrometry. Detection limit: 1 ng/mL. Individual target concentrations may vary due to target organ and time after transplant. This test has been developed and its performance characteristics determined by [facility] which is certified under [...] PharmD LAB BLOOD ORDERABLES Denisse valle Result [facility] [address] [place] [address], [facility] * (ABNORMAL) Renal Function Panel w/EGFR (11/01/2024 6:01 AM EDT) Sodium 139 133 - 146 mmol/L 11/01/2024 6:57 AM EDT [facility] Potassium 3.3(L) 3.5 - 5.3 mmol/L 11/01/2024 6:57 AM EDT [facility] Chloride 108 98 - 110 mmol/L 11/01/2024 6:57 AM EDT [facility] CO2 22 21 - 33 mmol/L 11/01/2024 6:57 AM EDT [facility] Anion Gap 9 3 - 16 mmol/L 11/01/2024 6:57 AM EDT [facility] BUN 37(H) 7 - 25 mg/dL 11/01/2024 6:57 AM EDT [facility] Creatinine 1.30 0.60 - 1.30 mg/dL 11/01/2024 6:57 AM EDT [facility] Glucose 163(H) 70 - 100 mg/dL 11/01/2024 6:57 AM EDT [facility] Calcium 8.2(L) 8.6 - 10.3 mg/dL 11/01/2024 6:57 AM EDT [facility] Phosphorus 2.9 2.1 - 4.7 mg/dL 11/01/2024 6:57 AM EDT [facility] Albumin 3.1(L) 3.5 - 5.7 g/dL 11/01/2024 6:57 AM EDT [facility] Osmolality, Calculated 300 278 - 305 mOsm/kg 11/01/2024 6:57 AM EDT [facility] EGFR 71 11/01/2024 6:57 AM EDT [facility] Comment:As of 2021, the [...] 11/01/2024 6:20 AM EDT Beata Dada Horner MACHINE BUNCH MAKER LAB BLOOD ORDERABLES Denisse l Result [facility] [address] [place], [place] [address] * Magnesium (11/01/2024 6:01 AM EDT) Magnesium 1.5 1.5 - 2.5 mg/dL 11/01/2024 6:57 AM EDT [facility] Plasma 11/01/2024 6:01 AM EDT 11/01/2024 6:20 AM EDT Combined Efforter Evens [facility] BLOOD ORDERABLES Denisse l Result Performing Organization Address [facility]/ZIP Co de Phone Number [facility] [address] [facility]. [address] * (ABNORMAL) Hepatic Function Panel (11/01/2024 6:01 AM EDT) Total Bilirubin 2.0(H) 0.0 - 1.5 mg/dL 11/01/2024 6:57 AM EDT [facility] Bilirubin, Direct 1.06(H) 0.00 - 0.40 mg/dL 11/01/2024 6:57 AM EDT [facility] AST 21 13 - 39 U/L 11/01/2024 6:57 AM EDT [facility] ALT 62(H) 7 - 52 U/L 11/01/2024 6:57 AM EDT [facility] Alkaline Phosphatase 114 36 - 125 U/L 11/01/2024 6:57 AM EDT [facility] Total Protein 4.6(L) 6.4 - 8.9 g/dL 11/01/2024 6:57 AM EDT [facility] Albumin 3.1(L) 3.5 - 5.7 g/dL 11/01/2024 6:57 AM EDT [facility] Bilirubin, Indirect 0.94 0.00 - 1.10 mg/dL 11/01/2024 6:57 AM EDT [facility] Plasma 11/01/2024 6:01 AM EDT 11/01/2024 6:20 AM EDT Beata Horner [facility] BLOOD ORDERABLES Denisse l Result [facility] [address] [employer] [facility]. [address] * (ABNORMAL) CBC (11/01/2024 6:01 AM EDT) WBC 5.9 3.8 - 10.8 10E3/uL 11/01/2024 6:29 AM EDT [facility] RBC 3.19(L) 4.20 - 5.80 10E6/uL 11/01/2024 6:29 AM EDT [facility] Hemoglobin 9.5(L) 13.2 - 17.1 g/dL 11/01/2024 6:29 AM EDT [facility] Hematocrit 27.8(L) 38.5 - 50.0 % 11/01/2024 6:29 AM EDT [facility] MCV 87.1 80.0 - 100.0 fL 11/01/2024 6:29 AM EDT [facility] MCH 29.9 27.0 - 33.0 pg 11/01/2024 6:29 AM EDT [facility] MCHC 34.3 32.0 - 36.0 g/dL 11/01/2024 6:29 AM EDT [facility] RDW 17.4(H) 11.0 - 15.0 % 11/01/2024 6:29 AM EDT [facility] Platelets 56(L) 140 - 400 10E3/uL 11/01/2024 6:29 AM EDT [facility] MPV 8.3 7.5 - 11.5 fL 11/01/2024 6:29 AM EDT [facility] Whole Blood 11/01/2024 6:01 AM EDT 11/01/2024 6:19 AM EDT us Beata Horner [facility] BLOOD ORDERABLES Denisse l Result [facility] [address] * (ABNORMAL) POC Glucose Monitoring Device (10/31/2024 9:15 PM EDT) [facility] POC Glucose Monitoring Device 171(H) 70 - 100 mg/dL 10/31/2024 9:15 PM EDT [facility] Blood 10/31/2024 9:15 PM EDT 10/31/2024 9:15 PM EDT Semaj Mcnair III, MD POINT OF CARE TEST ORDERABLES Final Result [facility] [address] * (ABNORMAL) POC Glucose Monitoring Device (10/31/2024 5:56 PM EDT) POC Glucose Monitoring Device 179(H) 70 - 100 mg/dL 10/31/2024 5:57 PM EDT [facility] Blood 10/31/2024 5:56 PM EDT 10/31/2024 5:57 PM EDT us Semaj Mcnair III, MD POINT OF CARE TEST ORDERABLES Final Result [facility] [address] [place] [id number], [facility] * CT Abdomen and Pelvis WO IV [...] Adrenal gland: No focal nodule seen. Kidneys: [place] kidneys noted with nonobstructing calcifications on the right. Findings of postsurgical changes in the left [place] kidney. Mild right hydronephrosis without an obstructive [...] Adrenal gland: No focal nodule seen. Kidneys: [place] kidneys noted with nonobstructing calcifications on theright. Findings of postsurgical changes in the left [place] kidney. Mildright hydronephrosis without an obstructive course [...] QT: 400 ms QTc: 456 ms P [place]: 49 degrees R [place]: 3 degrees T [place]: 14 degrees Diagnosis Line: NORMAL SINUS RHYTHM ^ NORMAL ECG ^ ^ Confirmed by MD REID JAMES ([id number]) on 11/02/2024 6:56:52 AM Priti Geiger [facility] ECG ORDERABLES Final Result MUSE * (ABNORMAL) Urinalysis w/Rfl to Microscopic (10/31/2024 1:18 PM EDT) Color, UA Straw Yellow,Straw 10/31/2024 1:46 PM EDT [facility] Clarity, UA Clear Clear 10/31/2024 1:46 PM EDT [facility] Specific [place], UA 1.013 1.005 - 1.035 10/31/2024 1:46 PM EDT [facility] pH, UA 6.5 5.0 - 8.0 10/31/2024 1:46 PM EDT [facility] Protein, UA Negative Negative mg/dL 10/31/2024 1:46 PM EDT [facility] Glucose, UA Negative Negative mg/dL 10/31/2024 1:46 PM EDT [facility] Ketones, UA Negative Negative mg/dL 10/31/2024 1:46 PM EDT [facility] Bilirubin, UA Negative Negative 10/31/2024 1:46 PM EDT [facility] Blood, UA Large(A) Negative 10/31/2024 1:46 PM EDT [facility] Nitrite, UA Negative Negative 10/31/2024 1:46 PM EDT [facility] Urobilinogen, UA <2.0 0.2 - 1.9 mg/dL 10/31/2024 1:46 PM EDT [facility] Leukocyte Esterase, UA Negative Negative 10/31/2024 1:46 PM EDT [facility] RBC, UA >100(H) 0 - 3 /HPF 10/31/2024 1:46 PM EDT [facility] WBC, UA 3 0 - 5 /HPF 10/31/2024 1:46 PM EDT [facility] Hyaline Casts, UA 3(H) 0 - 2 /LPF 10/31/2024 1:46 PM EDT [facility] Urine 10/31/2024 1:18 PM EDT 10/31/2024 1:32 PM EDT Priti Geiger [facility] URINE ORDERABLES Final Result [facility] [address] * (ABNORMAL) Post Kidney Transplant Urine Culture (10/31/2024 1:18 PM EDT) Culture Result Enterococcus faecium, Vancomycin Resistant(A) [facility] Comment: 1,000- <10,000 cfu/mL Identified [...] resistant Vancomycin SARMAD >=32: Resistant Comment:See Results Kerijosephra Geiger [facility] - GENERAL ORDERA BLES Final Result [facility] [address] * (ABNORMAL) POC Glucose Monitoring Device (10/31/2024 11:59 AM EDT) POC Glucose Monitoring Device 130(H) 70 - 100 mg/dL 10/31/2024 12:21 PM EDT [facility] Blood 10/31/2024 11:5 9 AM EDT 10/31/2024 12:21 PM EDT Semaj Mcnair III, MD POINT OF CARE TEST ORDERABLES Final Result Performing Organization Address [facility] Co de Phone Number [facility] [address] [facility]. [address] * US Abdomen Limited (10/31/2024 10:19 [...] EXAM: US ABDOMEN LIMITED EXAM: US DUPLEX [id number] COMPLETE INDICATION: Post-op liver transplant COMPARISON: None [...] visualized secondary to poor acoustic windows. The [place] right kidney measures 11.6 cm in length. [...] EXAM: US ABDOMEN LIMITED EXAM: US DUPLEX [id number] COMPLETE INDICATION: Post-op liver transplant COMPARISON: None [...] well visualized secondary to poor acousticwindows. The [place] right kidney measures 11.6 cm in length. [...] 10/31/2024 10:35 AM EDT us Beata Horner MACHINE BUNCH MAKER IMG US ORDERABLES Final R esult * [...] 10/31/2024 10:29 AM EDT us Beata Horner [facility] IM US ORDERABLES Final R esult * US Duplex [id number]-[id number] Comp (10/31/2024 10:19 AM EDT) Anatomical Region [...] EXAM: US ABDOMEN LIMITED EXAM: US DUPLEX [id number] COMPLETE INDICATION: Post-op liver transplant COMPARISON: None [...] visualized secondary to poor acoustic windows. The [place] right kidney measures 11.6 cm in length. [...] EXAM: US ABDOMEN LIMITED EXAM: US DUPLEX [id number] COMPLETE INDICATION: Post-op liver transplant COMPARISON: None [...] well visualized secondary to poor acousticwindows. The [place] right kidney measures 11.6 cm in length. [...] 10/31/2024 10:35 AM EDT us Beata Horner MACHINE BUNCH MAKER IMG US ORDERABLES Final R esult * ECG 12-lead (MUSE) (10/31/2024 8:57 AM EDT) 10/31/2024 8:57 AM EDT Narrative MUSE - 11/01/2024 9:21 AM EDT Ventricular Rate: 83 BPM Atrial Rate: 83 BPM P-R Interval: 168 ms QRS Duration: 102 ms QT: 392 ms QTc: 460 ms P [place]: 64 degrees R [place]: -18 degrees T [place]: 7 degrees Diagnosis Line: NORMAL SINUS RHYTHM ^ NORMAL ECG ^ ^ Confirmed by MD JOE, OTIS ([id number]) on 11/01/2024 9:21:13 AM Priti Geiger [facility] ECG ORDERABLES Final Result Performing Organization Address City/[facility]/ZIP Co de Phone Number MUSE * (ABNORMAL) POC Glucose Monitoring Device (10/31/2024 8:44 AM EDT) POC Glucose Monitoring Device 145(H) 70 - 100 mg/dL 10/31/2024 8:45 AM EDT [facility] Blood 10/31/2024 8:44 AM EDT 10/31/2024 8:44 AM EDT Semaj Mcnair III, MD POINT OF CARE TEST ORDERABLES Final Result [facility] [address] * Tacrolimus level (10/31/2024 6:40 AM EDT) Tacrolimus (LC-MS) 8.4 3.0 - 15.0 ng/mL 10/31/2024 10:05 AM EDT [facility] Comment:Performed via liquid chromatography tandem mass spectrometry. Detection limit: 1 ng/mL. Individual target concentrations may vary due to target organ and time after transplant. This test has been developed and its performance characteristics determined by [facility] which is certified under [...] PharmD LAB BLOOD ORDERABLES Denisse valle Result [facility] [address] [facility] [place] [address], [facility] * (ABNORMAL) Renal Function Panel w/EGFR (10/31/2024 6:40 AM EDT) Sodium 141 133 - 146 mmol/L 10/31/2024 8:09 AM EDT [facility] Potassium 3.5 3.5 - 5.3 mmol/L 10/31/2024 8:09 AM EDT [facility] Chloride 111(H) 98 - 110 mmol/L 10/31/2024 8:09 AM EDT [facility] CO2 20(L) 21 - 33 mmol/L 10/31/2024 8:09 AM EDT [facility] Anion Gap 10 3 - 16 mmol/L 10/31/2024 8:09 AM EDT [facility] BUN 54(H) 7 - 25 mg/dL 10/31/2024 8:09 AM EDT [facility] Creatinine 1.75(H) 0.60 - 1.30 mg/dL 10/31/2024 8:09 AM EDT [facility] Glucose 136(H) 70 - 100 mg/dL 10/31/2024 8:09 AM EDT [facility] Calcium 8.7 8.6 - 10.3 mg/dL 10/31/2024 8:09 AM EDT [facility] Phosphorus 4.1 2.1 - 4.7 mg/dL 10/31/2024 8:09 AM EDT [facility] Albumin 3.2(L) 3.5 - 5.7 g/dL 10/31/2024 8:09 AM EDT [facility] Osmolality, Calculated 309(H) 278 - 305 mOsm/kg 10/31/2024 8:09 AM EDT [facility] EGFR 50 10/31/2024 8:09 AM EDT [facility] Comment:As of 2021, the [...] 6:40 AM EDT 10/31/2024 7:35 AM EDT Combined Efforter Evens MACHINE BUNCH MAKER LAB BLOOD ORDERABLES Denisse l Result Performing Organization Address City/[facility]/ZIP Co de Phone Number [facility] [address] * Magnesium (10/31/2024 6:40 AM EDT) Magnesium 1.8 1.5 - 2.5 mg/dL 10/31/2024 8:09 AM EDT [facility] Plasma 10/31/2024 6:40 AM EDT 10/31/2024 7:35 AM EDT MediGainn MACHINE BUNCH MAKER LAB BLOOD ORDERABLES Denisse l Result Performing Organization Address [facility]/ZIP Co de Phone Number [facility] [address] * (ABNORMAL) Hepatic Function Panel (10/31/2024 6:40 AM EDT) Total Bilirubin 2.7(H) 0.0 - 1.5 mg/dL 10/31/2024 8:09 AM EDT [facility] Bilirubin, Direct 1.57(H) 0.00 - 0.40 mg/dL 10/31/2024 8:09 AM EDT [facility] AST 26 13 - 39 U/L 10/31/2024 8:09 AM EDT [facility] ALT 68(H) 7 - 52 U/L 10/31/2024 8:09 AM EDT [facility] Alkaline Phosphatase 112 36 - 125 U/L 10/31/2024 8:09 AM EDT [facility] Total Protein 4.7(L) 6.4 - 8.9 g/dL 10/31/2024 8:09 AM EDT [facility] Albumin 3.2(L) 3.5 - 5.7 g/dL 10/31/2024 8:09 AM EDT [facility] Bilirubin, Indirect 1.13(H) 0.00 - 1.10 mg/dL 10/31/2024 8:09 AM EDT [facility] Plasma 10/31/2024 6:40 AM EDT 10/31/2024 7:35 AM EDT Beata Horner MACHINE BUNCH MAKER LAB BLOOD ORDERABLES Denisse l Result Performing Organization Address City/State/[facility] Co de Phone Number [facility] [address] * (ABNORMAL) CBC (10/31/2024 6:40 AM EDT) WBC 6.0 3.8 - 10.8 10E3/uL 10/31/2024 8:05 AM EDT [facility] RBC 3.14(L) 4.20 - 5.80 10E6/uL 10/31/2024 8:05 AM EDT [facility] Hemoglobin 9.6(L) 13.2 - 17.1 g/dL 10/31/2024 8:05 AM EDT [facility] Hematocrit 27.5(L) 38.5 - 50.0 % 10/31/2024 8:05 AM EDT [facility] MCV 87.6 80.0 - 100.0 fL 10/31/2024 8:05 AM EDT [facility] MCH 30.7 27.0 - 33.0 pg 10/31/2024 8:05 AM EDT [facility] MCHC 35.0 32.0 - 36.0 g/dL 10/31/2024 8:05 AM EDT [facility] RDW 17.9(H) 11.0 - 15.0 % 10/31/2024 8:05 AM EDT [facility] Platelets 44(L) 140 - 400 10E3/uL 10/31/2024 8:05 AM EDT [facility] Comment: CNV Specimen checked for clots. None detected. MPV 8.9 7.5 - 11.5 fL 10/31/2024 8:05 AM EDT [facility] Whole Blood 10/31/2024 6:40 AM EDT 10/31/2024 7:34 AM EDT us Beata Horner [facility] BLOOD ORDERABLES Denisse l Result [facility] [address] * (ABNORMAL) POC Glucose Monitoring Device (10/30/2024 9:01 PM EDT) POC Glucose Monitoring Device 144(H) 70 - 100 mg/dL 10/30/2024 9:02 PM EDT [facility] Blood 10/30/2024 9:01 PM EDT 10/30/2024 9:01 PM EDT us Semaj Mcnair III, MD POINT OF CARE TEST ORDERABLES Final Result [facility] [address] * (ABNORMAL) POC Glucose Monitoring Device (10/30/2024 5:37 PM EDT) POC Glucose Monitoring Device 124(H) 70 - 100 mg/dL 10/30/2024 5:47 PM EDT [facility] Blood 10/30/2024 5:37 PM EDT 10/30/2024 5:47 PM EDT Semaj Mcnair III, MD POINT OF CARE TEST ORDERABLES Final Result Performing Organization Address City/[facility]/ZIP Co de Phone Number [facility] [address] [place] [address] * (ABNORMAL) POC Glucose Monitoring Device (10/30/2024 7:26 AM EDT) Pathologist [facility] POC Glucose Monitoring Device 150(H) 70 - 100 mg/dL 10/30/2024 7:27 AM EDT [facility] Blood 10/30/2024 7:26 AM EDT 10/30/2024 7:27 AM EDT Semaj Mcnair III, MD POINT OF CARE TEST ORDERABLES Final Result Performing Organization Address [facility] de Phone Number [address] * Tacrolimus level (10/30/2024 7:13 AM EDT) [facility] Tacrolimus (LC-MS) 9.5 3.0 - 15.0 ng/mL 10/30/2024 2:53 PM EDT [facility] Comment:Performed via liquid chromatography tandem mass spectrometry. Detection limit: 1 ng/mL. Individual target concentrations may vary due to target organ and time after transplant. This test has been developed and its performance characteristics determined by [facility] which is certified under [...] EDT 10/30/2024 7:26 AM EDT Priti Geiger [facility] BLOOD ORDERABLES Final Re sult [facility] [address] * ECG 12-lead (MUSE) (10/30/2024 6:51 AM EDT) 10/30/2024 6:51 AM EDT Narrative MUSE - 11/01/2024 9:21 AM EDT Ventricular Rate: 92 BPM Atrial Rate: 92 BPM P-R Interval: 174 ms QRS Duration: 96 ms QT: 376 ms QTc: 464 ms P [place]: 54 degrees R [place]: -24 degrees T [place]: 11 degrees Diagnosis Line: NORMAL SINUS RHYTHM ^ NORMAL ECG ^ ^ Confirmed by MD JOE, OTIS ([id number]) on 11/01/2024 9:21:09 AM Priti Geiger [employer] ECG ORDERABLES Final Result Performing Organization Address City/[facility]/ZIP Co de Phone Number MUSE * (ABNORMAL) Renal Function Panel w/EGFR (10/30/2024 5:41 AM EDT) Sodium 140 133 - 146 mmol/L 10/30/2024 6:18 AM EDT [facility] Potassium 3.8 3.5 - 5.3 mmol/L 10/30/2024 6:18 AM EDT [facility] Chloride 111(H) 98 - 110 mmol/L 10/30/2024 6:18 AM EDT [facility] CO2 17(L) 21 - 33 mmol/L 10/30/2024 6:18 AM EDT [facility] Anion Gap 12 3 - 16 mmol/L 10/30/2024 6:18 AM EDT [facility] BUN 62(H) 7 - 25 mg/dL 10/30/2024 6:18 AM EDT [facility] Creatinine 1.96(H) 0.60 - 1.30 mg/dL 10/30/2024 6:18 AM EDT [facility] Glucose 116(H) 70 - 100 mg/dL 10/30/2024 6:18 AM EDT [facility] Calcium 9.0 8.6 - 10.3 mg/dL 10/30/2024 6:18 AM EDT [facility] Phosphorus 4.6 2.1 - 4.7 mg/dL 10/30/2024 6:18 AM EDT [facility] Albumin 3.2(L) 3.5 - 5.7 g/dL 10/30/2024 6:18 AM EDT [facility] Osmolality, Calculated 309(H) 278 - 305 mOsm/kg 10/30/2024 6:18 AM EDT [facility] EGFR 43 10/30/2024 6:18 AM EDT [facility] Comment:As of 2021, the [...] [facility] LAB BLOOD ORDERABLES Denisse l Result [facility] [address] * Magnesium (10/30/2024 5:41 AM EDT) Magnesium 2.2 1.5 - 2.5 mg/dL 10/30/2024 6:18 AM EDT [facility] Plasma 10/30/2024 5:41 AM EDT 10/30/2024 5:47 AM EDT Beata Horner [facility] BLOOD ORDERABLES Denisse l Result [facility] [address] * (ABNORMAL) Hepatic Function Panel (10/30/2024 5:41 AM EDT) Total Bilirubin 3.6(H) 0.0 - 1.5 mg/dL 10/30/2024 6:18 AM EDT [facility] Bilirubin, Direct 1.95(H) 0.00 - 0.40 mg/dL 10/30/2024 6:18 AM EDT [facility] AST 33 13 - 39 U/L 10/30/2024 6:18 AM EDT [facility] ALT 71(H) 7 - 52 U/L 10/30/2024 6:18 AM EDT [facility] Alkaline Phosphatase 80 36 - 125 U/L 10/30/2024 6:18 AM EDT [facility] Total Protein 4.8(L) 6.4 - 8.9 g/dL 10/30/2024 6:18 AM EDT [facility] Albumin 3.2(L) 3.5 - 5.7 g/dL 10/30/2024 6:18 AM EDT [facility] Bilirubin, Indirect 1.65(H) 0.00 - 1.10 mg/dL 10/30/2024 6:18 AM EDT [facility] Plasma 10/30/2024 5:41 AM EDT 10/30/2024 5:47 AM EDT Beata Horner [facility] BLOOD ORDERABLES Denisse l Result [facility] [address] [facility]. [address] * (ABNORMAL) CBC (10/30/2024 5:41 AM EDT) WBC 8.1 3.8 - 10.8 10E3/uL 10/30/2024 8:06 AM EDT [facility] RBC 3.29(L) 4.20 - 5.80 10E6/uL 10/30/2024 8:06 AM EDT [facility] Hemoglobin 10.1(L) 13.2 - 17.1 g/dL 10/30/2024 8:06 AM EDT [facility] Hematocrit 28.8(L) 38.5 - 50.0 % 10/30/2024 8:06 AM EDT [facility] MCV 87.6 80.0 - 100.0 fL 10/30/2024 8:06 AM EDT [facility] MCH 30.6 27.0 - 33.0 pg 10/30/2024 8:06 AM EDT [facility] MCHC 34.9 32.0 - 36.0 g/dL 10/30/2024 8:06 AM EDT [facility] RDW 18.1(H) 11.0 - 15.0 % 10/30/2024 8:06 AM EDT [facility] Platelets 44(L) 140 - 400 10E3/uL 10/30/2024 8:06 AM EDT [facility] Comment: CNV Specimen checked for clots. None detected. MPV 8.3 7.5 - 11.5 fL 10/30/2024 8:06 AM EDT [facility] Whole Blood 10/30/2024 5:41 AM EDT 10/30/2024 5:50 AM EDT us Beata Horner [facility] BLOOD ORDERABLES Denisse l Result [facility] [address] * (ABNORMAL) POC Glucose Monitoring Device (10/29/2024 10:18 PM EDT) POC Glucose Monitoring Device 140(H) 70 - 100 mg/dL 10/29/2024 10:18 PM EDT [facility] Blood 10/29/2024 10:1 8 PM EDT 10/29/2024 10:18 PM EDT us Semaj Mcnair III, MD POINT OF CARE TEST ORDERABLES Final Result [facility] [address]. [address] * (ABNORMAL) POC Glucose Monitoring Device (10/29/2024 6:42 PM EDT) POC Glucose Monitoring Device 152(H) 70 - 100 mg/dL 10/29/2024 6:43 PM EDT [facility] Blood 10/29/2024 6:42 PM EDT 10/29/2024 6:43 PM EDT Semaj Mcnair III, MD POINT OF CARE TEST ORDERABLES Final Result Performing Organization Address City/[facility] Co de Phone Number [facility] [address]. [address] * (ABNORMAL) POC Glucose Monitoring Device (10/29/2024 11:35 AM EDT) POC Glucose Monitoring Device 130(H) 70 - 100 mg/dL 10/29/2024 11:36 AM EDT [facility] Blood 10/29/2024 11:3 5 AM EDT 10/29/2024 11:36 AM EDT Semaj Mcnair III, MD POINT OF CARE TEST ORDERABLES Final Result Performing Organization Address City/[facility] Co de Phone Number [facility] [address] [employer] [facility]. [address] * ECG 12 lead (MUSE) (10/29/2024 9:34 AM EDT) 10/29/2024 9:34 AM EDT Narrative MUSE - 10/29/2024 10:34 PM EDT Ventricular Rate: 97 BPM Atrial Rate: 97 BPM P-R Interval: 186 ms QRS Duration: 104 ms QT: 382 ms QTc: 485 ms P [place]: 54 degrees R [place]: -21 degrees T [place]: 1 degrees Diagnosis Line: NORMAL SINUS RHYTHM ^ NORMAL ECG ^ Confirmed by JORGE MACIAS ([id number]) on 10/29/2024 10:34:50 PM Afshan Bear MD ECG ORDERABLES Final Result MUSE * Tacrolimus level (10/29/2024 8:08 AM EDT) Pathologist [facility] Tacrolimus (LC-MS) 10.4 3.0 - 15.0 ng/mL 10/29/2024 2:07 PM EDT [facility] Comment:Performed via liquid chromatography tandem mass spectrometry. Detection limit: 1 ng/mL. Individual target concentrations may vary due to target organ and time after transplant. This test has been developed and its performance characteristics determined by [facility] which is certified under the Clinical [...] Re sult Performing Organization Address [facility] Co de Phone Number [facility] [address] * Prepare RBC, leukoreduced, 1 Units (10/29/2024 6:16 AM EDT) Product Code A6762S61 [facility] Unit Number [id number] [facility] Dispense Status Presumed Transfused_PT [facility] Blood Expiration Date [id number] HCLL Coding System [id number] [facility] Blood Bank Product Shay Plata MD BLOOD BANK PRODUCT O RDERABLES Final Result [facility] * Prepare RBC, leukoreduced, 1 Units (10/29/2024 6:15 AM EDT) Product Code W4032M26 [facility] Unit Number [id number] [facility] Dispense Status Presumed Transfused_PT [facility] Blood Expiration Date [id number] HCLL Coding System [id number] [facility] Blood Bank Product Carlos Marks MD BLOOD BANK PRODUCT ORDERABL ES Final Result [facility] * Prepare RBC, leukoreduced, 1 Units (10/29/2024 6:15 AM EDT) Product Code F2950D38 [facility] Unit Number [id number] HCLL Dispense Status Presumed Transfused_PT [facility] Blood Expiration Date [id number] HCLL Coding System [id number] [facility] Blood Bank Product John Moreno MD BLOOD BANK PRODUCT ORDERABLE S Final Result [facility] * (ABNORMAL) Renal Function Panel w/EGFR (10/29/2024 5:07 AM EDT) Sodium 144 133 - 146 mmol/L 10/29/2024 5:49 AM EDT [facility] Potassium 3.8 3.5 - 5.3 mmol/L 10/29/2024 5:49 AM EDT [facility] Chloride 113(H) 98 - 110 mmol/L 10/29/2024 5:49 AM EDT [facility] CO2 17(L) 21 - 33 mmol/L 10/29/2024 5:49 AM EDT [facility] Anion Gap 14 3 - 16 mmol/L 10/29/2024 5:49 AM EDT [facility] BUN 57(H) 7 - 25 mg/dL 10/29/2024 5:49 AM EDT [facility] Creatinine 1.93(H) 0.60 - 1.30 mg/dL 10/29/2024 5:49 AM EDT [facility] Glucose 110(H) 70 - 100 mg/dL 10/29/2024 5:49 AM EDT [facility] Calcium 9.3 8.6 - 10.3 mg/dL 10/29/2024 5:49 AM EDT [facility] Phosphorus 4.8(H) 2.1 - 4.7 mg/dL 10/29/2024 5:49 AM EDT [facility] Albumin 3.5 3.5 - 5.7 g/dL 10/29/2024 5:49 AM EDT [facility] Osmolality, Calculated 314(H) 278 - 305 mOsm/kg 10/29/2024 5:49 AM EDT [facility] EGFR 44 10/29/2024 5:49 AM EDT [facility] Comment:As of 2021, the [...] 10/29/2024 5:13 AM EDT Beata Horner [facility] BLOOD ORDERABLES Denisse l Result [facility] [address] [place], [place] [address] * Magnesium (10/29/2024 5:07 AM EDT) Magnesium 2.1 1.5 - 2.5 mg/dL 10/29/2024 5:49 AM EDT [facility] Plasma 10/29/2024 5:07 AM EDT 10/29/2024 5:13 AM EDT Beata Horner [facility] BLOOD ORDERABLES Denisse l Result Performing Organization Address [facility]/ZIP Co de Phone Number [facility] [address] [facility]. [address] * (ABNORMAL) Hepatic Function Panel (10/29/2024 5:07 AM EDT) Total Bilirubin 4.2(H) 0.0 - 1.5 mg/dL 10/29/2024 5:49 AM EDT [facility] Bilirubin, Direct 2.85(H) 0.00 - 0.40 mg/dL 10/29/2024 5:49 AM EDT [facility] AST 31 13 - 39 U/L 10/29/2024 5:49 AM EDT [facility] ALT 88(H) 7 - 52 U/L 10/29/2024 5:49 AM EDT [facility] Alkaline Phosphatase 51 36 - 125 U/L 10/29/2024 5:49 AM EDT [facility] Total Protein 5.2(L) 6.4 - 8.9 g/dL 10/29/2024 5:49 AM EDT [facility] Albumin 3.5 3.5 - 5.7 g/dL 10/29/2024 5:49 AM EDT [facility] Bilirubin, Indirect 1.35(H) 0.00 - 1.10 mg/dL 10/29/2024 5:49 AM EDT [facility] Plasma 10/29/2024 5:07 AM EDT 10/29/2024 5:13 AM EDT Beata Horner [facility] BLOOD ORDERABLES Denisse l Result [facility] [address] [facility]. [address] * (ABNORMAL) CBC (10/29/2024 5:07 AM EDT) WBC 7.8 3.8 - 10.8 10E3/uL 10/29/2024 5:38 AM EDT [facility] RBC 3.05(L) 4.20 - 5.80 10E6/uL 10/29/2024 5:38 AM EDT [facility] Hemoglobin 9.0(L) 13.2 - 17.1 g/dL 10/29/2024 5:38 AM EDT [facility] Hematocrit 26.7(L) 38.5 - 50.0 % 10/29/2024 5:38 AM EDT [facility] MCV 87.4 80.0 - 100.0 fL 10/29/2024 5:38 AM EDT [facility] MCH 29.7 27.0 - 33.0 pg 10/29/2024 5:38 AM EDT [facility] MCHC 33.9 32.0 - 36.0 g/dL 10/29/2024 5:38 AM EDT [facility] RDW 18.3(H) 11.0 - 15.0 % 10/29/2024 5:38 AM EDT [facility] Platelets 41(L) 140 - 400 10E3/uL 10/29/2024 5:38 AM EDT [facility] Comment: CNV Specimen checked for clots. None detected. MPV 7.5 7.5 - 11.5 fL 10/29/2024 5:38 AM EDT [facility] Whole Blood 10/29/2024 5:07 AM EDT 10/29/2024 5:13 AM EDT Beata Horner [facility] BLOOD ORDERABLES Denisse valle Result [facility] [address] [id number], [facility] * (ABNORMAL) TEG-Bypass/ECMO/Liver HN (Factor function, Platelet/Fibrin Clot Strength w/Clot Breakdown, Heparinase In All Channels) (10/29/2024 5:07 AM EDT) Citrated Kaolin Reaction Time (TEGECMOLIVER) 8.9 4.6 - 9.1 minutes 10/29/2024 7:04 AM EDT [facility] Citrated Kaolin W/Heparinase Reaction Time (TEGECMOLIVER) 7.4 4.3 - 8.3 minutes 10/29/2024 7:04 AM EDT [facility] Citrated Kaolin Maximum Amplitude (TEGECMOLIVER) 52.9 52.0 - 69.0 mm 10/29/2024 7:04 AM EDT [facility] Citrated Functional Fibrinogen W/Heparinase Maximum Amplitude(TEGEC MOLIVER) 20.7 15.0 - 34.0 mm 10/29/2024 7:04 AM EDT [facility] Citrated Rapid Teg W/Heparinase Maximum Amplitude (TEGECMOLIVER) 49.7(L) 53.0 - 69.0 mm 10/29/2024 7:04 AM EDT [facility] Citrated Kaolin w/Heparinase Percent Lysis (TEGECMOLIVER) 0.0 0.0 - 3.2 % 10/29/2024 7:04 AM EDT [facility] Whole Blood (Citrate) 10/29/2024 5:07 AM EDT 10/29/2024 5:10 AM EDT Kemar Sahni MD LAB BLOOD ORDERABLES Final Result [facility] [address] * (ABNORMAL) TEG-Bypass/ECMO/Liver HN (Factor function, Platelet/Fibrin Clot Strength w/Clot Breakdown, Heparinase In All Channels) (10/28/2024 11:55 PM EDT) [facility] Citrated Kaolin Reaction Time (TEGECMOLIVER) 8.6 4.6 - 9.1 minutes 10/29/2024 2:01 AM EDT [facility] Citrated Kaolin W/Heparinase Reaction Time (TEGECMOLIVER) 8.7(H) 4.3 - 8.3 minutes 10/29/2024 2:01 AM EDT [facility] Citrated Kaolin Maximum Amplitude (TEGECMOLIVER) 47.9(L) 52.0 - 69.0 mm 10/29/2024 2:01 AM EDT [facility] Citrated Functional Fibrinogen W/Heparinase Maximum Amplitude(TEGEC MOLIVER) 22.0 15.0 - 34.0 mm 10/29/2024 2:01 AM EDT [facility] Citrated Rapid Teg W/Heparinase Maximum Amplitude (TEGECMOLIVER) 45.9(L) 53.0 - 69.0 mm 10/29/2024 2:01 AM EDT [facility] Citrated Kaolin w/Heparinase Percent Lysis (TEGECMOLIVER) 0.0 0.0 - 3.2 % 10/29/2024 2:01 AM EDT [facility] Whole Blood (Citrate) 10/28/2024 11:55 PM EDT 10/28/2024 11:58 PM EDT us Kemar Sahni MD LAB BLOOD ORDERABLES Final Result [facility] [address] [place] [address], [facility] * (ABNORMAL) CBC, STAT (10/28/2024 8:04 PM EDT) WBC 3.9 3.8 - 10.8 10E3/uL 10/28/2024 8:36 PM EDT [facility] RBC 2.66(L) 4.20 - 5.80 10E6/uL 10/28/2024 8:36 PM EDT [facility] Hemoglobin 8.0(L) 13.2 - 17.1 g/dL 10/28/2024 8:36 PM EDT [facility] Hematocrit 23.0(L) 38.5 - 50.0 % 10/28/2024 8:36 PM EDT [facility] MCV 86.4 80.0 - 100.0 fL 10/28/2024 8:36 PM EDT [facility] MCH 29.9 27.0 - 33.0 pg 10/28/2024 8:36 PM EDT [facility] MCHC 34.6 32.0 - 36.0 g/dL 10/28/2024 8:36 PM EDT [facility] RDW 18.6(H) 11.0 - 15.0 % 10/28/2024 8:36 PM EDT [facility] Platelets 29(L) 140 - 400 10E3/uL 10/28/2024 8:36 PM EDT [facility] Comment: CNV Specimen checked for clots. None detected. MPV 7.8 7.5 - 11.5 fL 10/28/2024 8:36 PM EDT [facility] Whole Blood 10/28/2024 8:04 PM EDT 10/28/2024 8:14 PM EDT Carlos Marks MD LAB BLOOD ORDERABLES Final Result Performing Organization Address City/[facility]/ZIP Co de Phone Number [facility] [address] [place] [address]. [address] * (ABNORMAL) POC Glucose Monitoring Device (10/28/2024 8:03 PM EDT) Pathologist [facility] POC Glucose Monitoring Device 122(H) 70 - 100 mg/dL 10/28/2024 8:04 PM EDT [facility] Blood 10/28/2024 8:03 PM EDT 10/28/2024 8:04 PM EDT Semaj Mcnair III, MD POINT OF CARE TEST ORDERABLES Final Result Performing Organization Address [facility] de Phone Number [facility] [address] * (ABNORMAL) TEG-Bypass/ECMO/Liver HN (Factor function, Platelet/Fibrin Clot Strength w/Clot Breakdown, Heparinase In All Channels) (10/28/2024 6:39 PM EDT) Citrated Kaolin Reaction Time (TEGECMOLIVER) 9.0 4.6 - 9.1 minutes 10/28/2024 7:50 PM EDT [facility] Citrated Kaolin W/Heparinase Reaction Time (TEGECMOLIVER) 8.3 4.3 - 8.3 minutes 10/28/2024 7:50 PM EDT [facility] Citrated Kaolin Maximum Amplitude (TEGECMOLIVER) 47.6(L) 52.0 - 69.0 mm 10/28/2024 7:50 PM EDT [facility] Citrated Functional Fibrinogen W/Heparinase Maximum Amplitude(TEGEC MOLIVER) 20.4 15.0 - 34.0 mm 10/28/2024 7:50 PM EDT [facility] Citrated Rapid Teg W/Heparinase Maximum Amplitude (TEGECMOLIVER) 44.0(L) 53.0 - 69.0 mm 10/28/2024 7:50 PM EDT [facility] Citrated Kaolin w/Heparinase Percent Lysis (TEGECMOLIVER) 0.0 0.0 - 3.2 % 10/28/2024 7:50 PM EDT [facility] Whole Blood (Citrate) 10/28/2024 6:39 PM EDT 10/28/2024 6:42 PM EDT us Kemar Sahni MD LAB BLOOD ORDERABLES Final Result Performing Organization Address [facility] Co de Phone Number [facility] [address] * (ABNORMAL) POC Glucose Monitoring Device (10/28/2024 5:31 PM EDT) [facility] POC Glucose Monitoring Device 130(H) 70 - 100 mg/dL 10/28/2024 5:31 PM EDT [facility] Blood 10/28/2024 5:31 PM EDT 10/28/2024 5:31 PM EDT us Semaj Mcnair III, MD POINT OF CARE TEST ORDERABLES Final Result Performing Organization Address [facility] de Phone Number [facility] [address] * Transfuse RBC Transfusion Rate: Per dept routine (10/28/2024 5:23 PM EDT) us Shay Plata MD NURSING TREATMENT OR DERABLES - BLOOD ADMIN Final Result Performing Organization Address [facility] de Phone Number EXTERNAL * Transfuse RBC Transfusion Rate: Per dept routine, 1 Units (10/28/2024 5:23 PM EDT) us Shay Plata MD NURSING TREATMENT OR DERABLES - BLOOD ADMIN Final Result Performing Organization Address [facility]/State/ZIP Co de Phone Number EXTERNAL * US [...] EXAM: US ABDOMEN LIMITED EXAM: US DUPLEX [id number] COMPLETE INDICATION: Post-op liver transplant DATE: 10/28/2024 [...] retrohepatic inferior vena cava is patent. The [place] right kidney is partially visualized. A prominent [...] EXAM: US ABDOMEN LIMITED EXAM: US DUPLEX [id number] COMPLETE INDICATION: Post-op liver transplant DATE: 10/28/2024 [...] retrohepatic inferior vena cava is patent. The [place] right kidney is partially visualized. A prominent [...] ORDERABLES Fi nal Result * US Duplex Ljp-Ixx-Furwopd Comp (10/28/2024 4:23 PM EDT) Anatomical Region [...] EXAM: US ABDOMEN LIMITED EXAM: US DUPLEX [id number] COMPLETE INDICATION: Post-op liver transplant DATE: 10/28/2024 [...] retrohepatic inferior vena cava is patent. The [place] right kidney is partially visualized. A prominent [...] EXAM: US ABDOMEN LIMITED EXAM: US DUPLEX [id number] COMPLETE INDICATION: Post-op liver transplant DATE: 10/28/2024 [...] retrohepatic inferior vena cava is patent. The [place] right kidney is partially visualized. A prominent [...] - 10.8 10E3/uL 10/28/2024 3:07 PM EDT [facility] RBC 2.44(L) 4.20 - 5.80 10E6/uL 10/28/2024 3:07 PM EDT [facility] Hemoglobin 7.5(L) 13.2 - 17.1 g/dL 10/28/2024 3:07 PM EDT [facility] Hematocrit 21.4(L) 38.5 - 50.0 % 10/28/2024 3:07 PM EDT [facility] MCV 87.6 80.0 - 100.0 fL 10/28/2024 3:07 PM EDT [facility] MCH 30.6 27.0 - 33.0 pg 10/28/2024 3:07 PM EDT [facility] MCHC 34.9 32.0 - 36.0 g/dL 10/28/2024 3:07 PM EDT [facility] RDW 18.4(H) 11.0 - 15.0 % 10/28/2024 3:07 PM EDT [facility] Platelets 30(L) 140 - 400 10E3/uL 10/28/2024 3:07 PM EDT [facility] Comment: CNV Specimen checked for clots. None detected. MPV 7.7 7.5 - 11.5 fL 10/28/2024 3:07 PM EDT [facility] Whole Blood 10/28/2024 2:49 PM EDT 10/28/2024 2:53 PM EDT Carlos Marks MD LAB BLOOD ORDERABLES Final Result Performing Organization Address [facility] Co de Phone Number [facility] [address] * ECG 12 lead (MUSE) (10/28/2024 1:22 PM EDT) 10/28/2024 1:22 PM EDT Narrative MUSE - 10/29/2024 10:34 PM EDT Ventricular Rate: 104 BPM Atrial Rate: 104 BPM P-R Interval: 172 ms QRS Duration: 90 ms QT: 354 ms QTc: 465 ms P [place]: 58 degrees R [place]: -19 degrees T [place]: 38 degrees Diagnosis Line: SINUS TACHYCARDIA ^ OTHERWISE NORMAL ECG ^ ^ Confirmed by JORGE MACIAS ([id number]) on 10/29/2024 10:34:22 PM Hillary Fernandes PharmD ECG ORDERABLES Final Res ult Performing Organization Address [facility] Co de Phone Number MUSE * (ABNORMAL) POC Glucose Monitoring Device (10/28/2024 12:54 PM EDT) [facility] POC Glucose Monitoring Device 119(H) 70 - 100 mg/dL 10/28/2024 12:55 PM EDT [facility] Blood 10/28/2024 12:5 4 PM EDT 10/28/2024 12:55 PM EDT us Semaj Mcnair III, MD POINT OF CARE TEST ORDERABLES Final Result Performing Organization Address [facility] Co de Phone Number [facility] [address] [facility]. [address] * Transfuse RBC Transfusion Rate: Per dept routine (10/28/2024 12:31 PM EDT) Carlos Marks MD NURSING TREATMENT ORDERABLE S - BLOOD ADMIN Final Result Performing Organization Address City/[facility] Co de Phone Number EXTERNAL * Transfuse RBC Transfusion Rate: Per dept routine, 1 Units (10/28/2024 12:31 PM EDT) us Carlos Marks MD NURSING TREATMENT ORDERABLE S - BLOOD ADMIN Final Result Performing Organization Address [facility] Co de Phone Number EXTERNAL * Protime-INR, STAT (10/28/2024 11:09 AM EDT) Protime 14.3 12.1 - 15.1 seconds 10/28/2024 11:29 AM EDT [facility] INR 1.1 0.9 - 1.1 10/28/2024 11:29 AM EDT [facility] Comment: RECOMMENDED THERAPEUTIC RANGES USING INR : Stable oral anticoagulant therapy: 2.0 - 3.0 Mechanical prosthetic heart valve: 2.5 - 3.5 Recurrent acute myocardial infarction: 2.5 - 3.5 Plasma 10/28/2024 11:0 9 AM EDT 10/28/2024 11:16 AM EDT us Carlos Marks MD LAB BLOOD ORDERABLES Final Result Performing Organization Address [facility] de Phone Number [facility] [address] * (ABNORMAL) Lactic Acid, STAT (10/28/2024 11:09 AM EDT) Lactate 0.3(L) 0.5 - 2.2 mmol/L 10/28/2024 11:37 AM EDT [facility] Plasma 10/28/2024 11:0 9 AM EDT 10/28/2024 11:15 AM EDT us Carlos Marks MD LAB BLOOD ORDERABLES Final Result Performing Organization Address [facility] Co de Phone Number [facility] [address] [facility]. [address] * Magnesium, STAT (10/28/2024 11:09 AM EDT) Magnesium 2.1 1.5 - 2.5 mg/dL 10/28/2024 11:47 AM EDT [facility] Plasma 10/28/2024 11:0 9 AM EDT 10/28/2024 11:16 AM EDT Carlos Marks MD LAB BLOOD ORDERABLES Final Result [facility] [address] [place] [address], [facility] * (ABNORMAL) Renal Function Panel w/EGFR, STAT (10/28/2024 11:09 AM EDT) Sodium 144 133 - 146 mmol/L 10/28/2024 11:47 AM EDT [facility] Potassium 3.4(L) 3.5 - 5.3 mmol/L 10/28/2024 11:47 AM EDT [facility] Chloride 112(H) 98 - 110 mmol/L 10/28/2024 11:47 AM EDT [facility] CO2 22 21 - 33 mmol/L 10/28/2024 11:47 AM EDT [facility] Anion Gap 10 3 - 16 mmol/L 10/28/2024 11:47 AM EDT [facility] BUN 57(H) 7 - 25 mg/dL 10/28/2024 11:47 AM EDT [facility] Creatinine 2.01(H) 0.60 - 1.30 mg/dL 10/28/2024 11:47 AM EDT [facility] Glucose 108(H) 70 - 100 mg/dL 10/28/2024 11:47 AM EDT [facility] Calcium 8.8 8.6 - 10.3 mg/dL 10/28/2024 11:47 AM EDT [facility] Phosphorus 4.0 2.1 - 4.7 mg/dL 10/28/2024 11:47 AM EDT [facility] Albumin 3.3(L) 3.5 - 5.7 g/dL 10/28/2024 11:47 AM EDT [facility] Osmolality, Calculated 314(H) 278 - 305 mOsm/kg 10/28/2024 11:47 AM EDT [facility] EGFR 42 10/28/2024 11:47 AM EDT [facility] Comment:As of 2021, the [...] Marks MD LAB BLOOD ORDERABLES Final Result [facility] [address] [place] [address], [facility] * (ABNORMAL) TEG-Bypass/ECMO/Liver HN (Factor function, Platelet/Fibrin Clot Strength w/Clot Breakdown, Heparinase In All Channels) (10/28/2024 11:09 AM EDT) Citrated Kaolin Reaction Time (TEGECMOLIVER) 9.2(H) 4.6 - 9.1 minutes 10/28/2024 12:30 PM EDT [facility] Citrated Kaolin W/Heparinase Reaction Time (TEGECMOLIVER) 9.6(H) 4.3 - 8.3 minutes 10/28/2024 12:30 PM EDT [facility] Citrated Kaolin Maximum Amplitude (TEGECMOLIVER) 51.2(L) 52.0 - 69.0 mm 10/28/2024 12:30 PM EDT [facility] Citrated Functional Fibrinogen W/Heparinase Maximum Amplitude(TEGEC MOLIVER) 21.6 15.0 - 34.0 mm 10/28/2024 12:30 PM EDT [facility] Citrated Rapid Teg W/Heparinase Maximum Amplitude (TEGECMOLIVER) 49.3(L) 53.0 - 69.0 mm 10/28/2024 12:30 PM EDT [facility] Citrated Kaolin w/Heparinase Percent Lysis (TEGECMOLIVER) 0.0 0.0 - 3.2 % 10/28/2024 12:30 PM EDT [facility] Whole Blood (Citrate) 10/28/2024 11:09 AM EDT 10/28/2024 11:14 AM EDT us Kemar Sahni MD LAB BLOOD ORDERABLES Final Result [facility] [address] [facility] [place] [address], [facility] * (ABNORMAL) CBC (10/28/2024 10:21 AM EDT) WBC 4.1 3.8 - 10.8 10E3/uL 10/28/2024 10:41 AM EDT [facility] RBC 2.30(L) 4.20 - 5.80 10E6/uL 10/28/2024 10:41 AM EDT [facility] Hemoglobin 7.1(L) 13.2 - 17.1 g/dL 10/28/2024 10:41 AM EDT [facility] Hematocrit 20.4(L) 38.5 - 50.0 % 10/28/2024 10:41 AM EDT [facility] MCV 88.5 80.0 - 100.0 fL 10/28/2024 10:41 AM EDT [facility] MCH 30.7 27.0 - 33.0 pg 10/28/2024 10:41 AM EDT [facility] MCHC 34.7 32.0 - 36.0 g/dL 10/28/2024 10:41 AM EDT [facility] RDW 18.7(H) 11.0 - 15.0 % 10/28/2024 10:41 AM EDT [facility] Platelets 37(L) 140 - 400 10E3/uL 10/28/2024 10:41 AM EDT [facility] Comment: CNV Specimen checked for clots. None detected. MPV 7.6 7.5 - 11.5 fL 10/28/2024 10:41 AM EDT [facility] Whole Blood 10/28/2024 10:2 1 AM EDT 10/28/2024 10:29 AM EDT Carlos Marks MD LAB BLOOD ORDERABLES Final Result Performing Organization Address City/[facility]/ZIP Co de Phone Number [facility] [address] [place] [address]. [address] * POC Glucose Monitoring Device (10/28/2024 9:07 AM EDT) [facility] POC Glucose Monitoring Device 97 70 - 100 mg/dL 10/28/2024 9:08 AM EDT [facility] Blood 10/28/2024 9:07 AM EDT 10/28/2024 9:08 AM EDT Semaj Mcnair III, MD POINT OF CARE TEST ORDERABLES Final Result Performing Organization Address [facility] de Phone Number [facility] [address] [place] [address]. [address] * (ABNORMAL) Tacrolimus level (10/28/2024 8:20 AM EDT) Pathologist [facility] Tacrolimus (LC-MS) <1.0(L) 3.0 - 15.0 ng/mL 10/28/2024 2:02 PM EDT [facility] Comment:Performed via liquid chromatography tandem mass spectrometry. Detection limit: 1 ng/mL. Individual target concentrations may vary due to target organ and time after transplant. This test has been developed and its performance characteristics determined by [facility] which is certified under [...] Re sult Performing Organization Address [facility] Co de Phone Number [facility] [address] [facility]. [address] * (ABNORMAL) POC Glucose Monitoring Device (10/28/2024 8:10 AM EDT) POC Glucose Monitoring Device 102(H) 70 - 100 mg/dL 10/28/2024 8:11 AM EDT [facility] Blood 10/28/2024 8:10 AM EDT 10/28/2024 8:11 AM EDT Semaj Mcnair III, MD POINT OF CARE TEST ORDERABLES Final Result Performing Organization Address [facility] Co de Phone Number [facility] [address] [facility]. [address] * POC Glucose Monitoring Device (10/28/2024 6:17 AM EDT) POC Glucose Monitoring Device 100 70 - 100 mg/dL 10/28/2024 6:18 AM EDT [facility] Blood 10/28/2024 6:17 AM EDT 10/28/2024 6:18 AM EDT Semaj Mcnair III, MD POINT OF CARE TEST ORDERABLES Final Result Performing Organization Address City/[facility] Co de Phone Number [facility] [address] [facility] * Prepare Platelets, leukoreduced (10/28/2024 6:15 AM EDT) Product Code N2080Y33 HCLL Unit Number [id number] HCLL Dispense Status Presumed Transfused_PT HCLL Blood Expiration Date HCLL Coding System [id number] HCLL Product Code X2228B26 HCLL Unit Number [id number] HCLL Dispense Status Presumed Transfused_PT HCLL Blood Expiration Date [id number] HCLL Coding System [id number] HCLL us Attending Provider Unknown BLOOD BANK PRODUCT OR DERABLES Final Result HC[facility] * Prepare Fresh Frozen Plasma (10/28/2024 6:15 AM EDT) Product Code N3869M83 HCLL Unit Number [id number] HCLL Dispense Status Released from Crossmatch_RE HCLL Blood Expiration Date [id number] HCLL Coding System STWZ337 HCLL Product Code K5984I59 HCLL Unit Number [id number] HCLL Dispense Status Presumed Transfused_PT HCLL Blood Expiration Date HCLL Coding System IYPY248 HCLL Product Code A9180K06 HCLL Unit Number [id number] HCLL Dispense Status Released from Crossmatch_RE HCLL Blood Expiration Date HCLL Coding System [id number] HCLL Product Code W9118X79 HCLL Unit Number [id number] HCLL Dispense Status Presumed Transfused_PT HCLL Blood Expiration Date HCLL Coding System [id number] HCLL Product Code T4108F21 HCLL Unit Number [id number] HCLL Dispense Status Released from Crossmatch_RE HCLL Blood Expiration Date [id number] HCLL Coding System [id number] HCLL us Attending Provider Unknown BLOOD BANK PRODUCT OR DERABLES Final Result [facility] * Prepare RBC, leukoreduced (10/28/2024 6:15 AM EDT) Product Code F5156S87 HCLL Unit Number [id number] HCLL Dispense Status Released from Crossmatch_RE HCLL Blood Expiration Date [id number] HCLL Coding System [id number] HCLL Product Code D9375P05 HCLL Unit Number [id number] HCLL Dispense Status Presumed Transfused_PT HCLL Blood Expiration Date [id number] HCLL Coding System OFMQ023 HCLL Product Code X0075I25 HCLL Unit Number [id number] HCLL Dispense Status Released from Crossmatch_RE HCLL Blood Expiration Date 243435611557 HCLL Coding System DXGA360 HCLL Product Code E6758N28 HCLL Unit Number [id number] HCLL Dispense Status Presumed Transfused_PT HCLL Blood Expiration Date [id number] HCLL Coding System VXHC257 HCLL Product Code I8328T16 HCLL Unit Number [id number] HCLL Dispense Status Released from Crossmatch_RE HCLL Blood Expiration Date [id number] HCLL Coding System [id number] HCLL us Attending Provider Unknown BLOOD BANK PRODUCT OR DERABLES Final Result Performing Organization Address [facility] Co de Phone Number HC[facility] * Prepare Platelets, leukoreduced, 1 Units (10/28/2024 6:15 AM EDT) Product Code T7861F24 HCLL Unit Number [id number] HCLL Dispense Status Presumed Transfused_PT HCLL Blood Expiration Date [id number] HCLL Coding System [id number] HCLL Blood Bank Product John Pina MD BLOOD BANK PRODUCT ORDERABLES F inal Result Performing Organization Address [facility]/ZIP Co de Phone Number HCLL * Prepare Cryoprecipitate, 1 Units (10/28/2024 6:15 AM EDT) Product Code E9500Z00 HCLL Unit Number [id number] HCLL Dispense Status Presumed Transfused_PT HCLL Blood Expiration Date [id number] HCLL Coding System [id number] HCLL Product Code U2059D27 HCLL Unit Number [id number] HCLL Dispense Status Presumed Transfused_PT HCLL Blood Expiration Date HCLL Coding System BEQI462 HCLL Blood Bank Product John Pina MD BLOOD BANK PRODUCT ORDERABLES F inal Result Performing Organization Address [facility] Co de Phone Number [facility] * Prepare Fresh Frozen Plasma, 1 Units (10/28/2024 6:15 AM EDT) Product Code Y8011E43 HCLL Unit Number [id number] HCLL Dispense Status Presumed Transfused_PT HCLL Blood Expiration Date HCLL Coding System RHSS825 HCLL Blood Bank Product John Pina MD BLOOD BANK PRODUCT ORDERABLES F inal Result Performing Organization Address [facility] de Phone Number HC[facility] * Prepare Cryoprecipitate, 1 Units (10/28/2024 6:15 AM EDT) Product Code N2077T00 HCLL Unit Number [id number] HCLL Dispense Status Presumed Transfused_PT HCLL Blood Expiration Date [id number] HCLL Coding System LEED345 HCLL Product Code X3896A26 HCLL Unit Number [id number] HCLL Dispense Status Presumed Transfused_PT HCLL Blood Expiration Date HCLL Coding System BTLT633 HCLL Product Code J6413H54 HCLL Unit Number [id number] HCLL Dispense Status Presumed Transfused_PT HCLL Blood Expiration Date 609429217124 HCLL Coding System EGWP656 HCLL Product Code B1732O80 HCLL Unit Number [id number] HCLL Dispense Status Presumed Transfused_PT HCLL Blood Expiration Date [id number] HCLL Coding System UBLN971 HCLL Blood Bank Product John Pina MD BLOOD BANK PRODUCT ORDERABLES F inal Result Performing Organization Address [facility] de Phone Number HC[facility] * (ABNORMAL) POC Glucose Monitoring Device (10/28/2024 4:55 AM EDT) POC Glucose Monitoring Device 104(H) 70 - 100 mg/dL 10/28/2024 4:57 AM EDT [facility] Blood 10/28/2024 4:55 AM EDT 10/28/2024 4:57 AM EDT us Semaj Mcnair III, MD POINT OF CARE TEST ORDERABLES Final Result [facility] [address] * TEG-Bypass/ECMO/Liver HN (Factor function, Platelet/Fibrin Clot Strength w/Clot Breakdown, Heparinase In All Channels) (10/28/2024 4:13 AM EDT) Citrated Kaolin Reaction Time (TEGECMOLIVER) 7.2 4.6 - 9.1 minutes 10/28/2024 5:38 AM EDT [facility] Citrated Kaolin W/Heparinase Reaction Time (TEGECMOLIVER) 7.8 4.3 - 8.3 minutes 10/28/2024 5:38 AM EDT [facility] Citrated Kaolin Maximum Amplitude (TEGECMOLIVER) 53.0 52.0 - 69.0 mm 10/28/2024 5:38 AM EDT [facility] Citrated Functional Fibrinogen W/Heparinase Maximum Amplitude(TEGEC MOLIVER) 21.4 15.0 - 34.0 mm 10/28/2024 5:38 AM EDT [facility] Citrated Rapid Teg W/Heparinase Maximum Amplitude (TEGECMOLIVER) 54.7 53.0 - 69.0 mm 10/28/2024 5:38 AM EDT [facility] Citrated Kaolin w/Heparinase Percent Lysis (TEGECMOLIVER) 0.0 0.0 - 3.2 % 10/28/2024 5:38 AM EDT [facility] Whole Blood (Citrate) 10/28/2024 4:13 AM EDT 10/28/2024 4:28 AM EDT Kemar Sahni MD LAB BLOOD ORDERABLES Final Result Performing Organization Address City/[facility] Co de Phone Number [facility] [address] * Protime-INR (10/28/2024 4:13 AM EDT) Protime 14.6 12.1 - 15.1 seconds 10/28/2024 4:53 AM EDT [facility] INR 1.1 0.9 - 1.1 10/28/2024 4:53 AM EDT [facility] Comment: RECOMMENDED THERAPEUTIC RANGES USING INR : Stable oral anticoagulant therapy: 2.0 - 3.0 Mechanical prosthetic heart valve: 2.5 - 3.5 Recurrent acute myocardial infarction: 2.5 - 3.5 Plasma 10/28/2024 4:13 AM EDT 10/28/2024 4:41 AM EDT Kemar Sahni MD LAB BLOOD ORDERABLES Final Result Performing Organization Address [facility] Co de Phone Number [facility] [address] [facility] * Magnesium (10/28/2024 4:13 AM EDT) Magnesium 2.2 1.5 - 2.5 mg/dL 10/28/2024 5:15 AM EDT [facility] Plasma 10/28/2024 4:13 AM EDT 10/28/2024 4:41 AM EDT Kemar Sahni MD LAB BLOOD ORDERABLES Final Result Performing Organization Address City/[facility] Co de Phone Number [facility] [address] [facility] * (ABNORMAL) Hepatic Function Panel (10/28/2024 4:13 AM EDT) Total Bilirubin 2.3(H) 0.0 - 1.5 mg/dL 10/28/2024 5:15 AM EDT [facility] Bilirubin, Direct 1.67(H) 0.00 - 0.40 mg/dL 10/28/2024 5:15 AM EDT [facility] AST 44(H) 13 - 39 U/L 10/28/2024 5:15 AM EDT [facility] ALT 101(H) 7 - 52 U/L 10/28/2024 5:15 AM EDT [facility] Alkaline Phosphatase 26(L) 36 - 125 U/L 10/28/2024 5:15 AM EDT [facility] Total Protein 4.5(L) 6.4 - 8.9 g/dL 10/28/2024 5:15 AM EDT [facility] Albumin 3.1(L) 3.5 - 5.7 g/dL 10/28/2024 5:15 AM EDT [facility] Bilirubin, Indirect 0.63 0.00 - 1.10 mg/dL 10/28/2024 5:15 AM EDT [facility] Plasma 10/28/2024 4:13 AM EDT 10/28/2024 4:41 AM EDT Kemar Sahni MD LAB BLOOD ORDERABLES Final Result [facility] [address] * (ABNORMAL) Renal Function Panel w/EGFR (10/28/2024 4:13 AM EDT) Sodium 142 133 - 146 mmol/L 10/28/2024 5:15 AM EDT [facility] Potassium 3.5 3.5 - 5.3 mmol/L 10/28/2024 5:15 AM EDT [facility] Chloride 111(H) 98 - 110 mmol/L 10/28/2024 5:15 AM EDT [facility] CO2 22 21 - 33 mmol/L 10/28/2024 5:15 AM EDT [facility] Anion Gap 9 3 - 16 mmol/L 10/28/2024 5:15 AM EDT [facility] BUN 58(H) 7 - 25 mg/dL 10/28/2024 5:15 AM EDT [facility] Creatinine 2.24(H) 0.60 - 1.30 mg/dL 10/28/2024 5:15 AM EDT [facility] Glucose 103(H) 70 - 100 mg/dL 10/28/2024 5:15 AM EDT [facility] Calcium 9.1 8.6 - 10.3 mg/dL 10/28/2024 5:15 AM EDT [facility] Phosphorus 4.8(H) 2.1 - 4.7 mg/dL 10/28/2024 5:15 AM EDT [facility] Albumin 3.1(L) 3.5 - 5.7 g/dL 10/28/2024 5:15 AM EDT [facility] Osmolality, Calculated 310(H) 278 - 305 mOsm/kg 10/28/2024 5:15 AM EDT [facility] EGFR 37 10/28/2024 5:15 AM EDT [facility] Comment:As of 2021, the [...] Sahni MD LAB BLOOD ORDERABLES Final Result [facility] [address] [place] [address], [facility] * (ABNORMAL) CBC (10/28/2024 4:13 AM EDT) WBC 4.5 3.8 - 10.8 10E3/uL 10/28/2024 5:09 AM EDT [facility] RBC 2.39(L) 4.20 - 5.80 10E6/uL 10/28/2024 5:09 AM EDT [facility] Hemoglobin 7.3(L) 13.2 - 17.1 g/dL 10/28/2024 5:09 AM EDT [facility] Hematocrit 21.0(L) 38.5 - 50.0 % 10/28/2024 5:09 AM EDT [facility] MCV 87.8 80.0 - 100.0 fL 10/28/2024 5:09 AM EDT [facility] MCH 30.5 27.0 - 33.0 pg 10/28/2024 5:09 AM EDT [facility] MCHC 34.7 32.0 - 36.0 g/dL 10/28/2024 5:09 AM EDT [facility] RDW 18.7(H) 11.0 - 15.0 % 10/28/2024 5:09 AM EDT [facility] Platelets 38(L) 140 - 400 10E3/uL 10/28/2024 5:09 AM EDT [facility] Comment: CNV Specimen checked for clots. None detected. MPV 7.6 7.5 - 11.5 fL 10/28/2024 5:09 AM EDT [facility] Whole Blood 10/28/2024 4:13 AM EDT 10/28/2024 4:41 AM EDT us Kemar Sahni MD LAB BLOOD ORDERABLES Final Result [facility] [address] [place] [address], [facility] * (ABNORMAL) POC Glucose Monitoring Device (10/28/2024 4:04 AM EDT) POC Glucose Monitoring Device 103(H) 70 - 100 mg/dL 10/28/2024 4:05 AM EDT [facility] Blood 10/28/2024 4:04 AM EDT 10/28/2024 4:05 AM EDT us Semaj Mcnair III, MD POINT OF CARE TEST ORDERABLES Final Result Performing Organization Address City/[facility]/ZIP Co de Phone Number [facility] [address] [facility] * (ABNORMAL) POC Glucose Monitoring Device (10/28/2024 3:00 AM EDT) POC Glucose Monitoring Device 106(H) 70 - 100 mg/dL 10/28/2024 3:01 AM EDT [facility] Blood 10/28/2024 3:00 AM EDT 10/28/2024 3:01 AM EDT us Semaj Mcnair III, MD POINT OF CARE TEST ORDERABLES Final Result Performing Organization Address [facility]/ZIP Co de Phone Number [facility] [address] [facility] * (ABNORMAL) POC Glucose Monitoring Device (10/28/2024 2:32 AM EDT) POC Glucose Monitoring Device 109(H) 70 - 100 mg/dL 10/28/2024 2:33 AM EDT [facility] Blood 10/28/2024 2:32 AM EDT 10/28/2024 2:33 AM EDT Semaj Mcnair III, MD POINT OF CARE TEST ORDERABLES Final Result Performing Organization Address City/[facility]/ZIP Co de Phone Number [facility] [address] [facility] * (ABNORMAL) POC Glucose Monitoring Device (10/28/2024 2:14 AM EDT) POC Glucose Monitoring Device 115(H) 70 - 100 mg/dL 10/28/2024 2:15 AM EDT [facility] Blood 10/28/2024 2:14 AM EDT 10/28/2024 2:15 AM EDT Semaj Mcnair III, MD POINT OF CARE TEST ORDERABLES Final Result Performing Organization Address [facility] Co de Phone Number [facility] [address] * (ABNORMAL) POC Glucose Monitoring Device (10/28/2024 2:03 AM EDT) POC Glucose Monitoring Device 101(H) 70 - 100 mg/dL 10/28/2024 2:04 AM EDT [facility] Blood 10/28/2024 2:03 AM EDT 10/28/2024 2:04 AM EDT Semaj Mcnair III, MD POINT OF CARE TEST ORDERABLES Final Result Performing Organization Address [facility] de Phone Number [facility] [address] * Transfuse RBC Transfusion Rate: Per dept routine (10/28/2024 1:51 AM EDT) John Moreno MD NURSING TREATMENT ORDERABLES - BLOOD ADMIN Final Result Performing Organization Address [facility] de Phone Number EXTERNAL * Transfuse RBC Transfusion Rate: Per dept routine, 1 Units (10/28/2024 1:51 AM EDT) John Moreno MD NURSING TREATMENT ORDERABLES - BLOOD ADMIN Final Result Performing Organization Address [facility] de Phone Number EXTERNAL * (ABNORMAL) TEG-Bypass/ECMO/Liver HN (Factor function, Platelet/Fibrin Clot Strength w/Clot Breakdown, Heparinase In All Channels) (10/28/2024 12:05 AM EDT) Citrated Kaolin Reaction Time (TEGECMOLIVER) 7.5 4.6 - 9.1 minutes 10/28/2024 1:22 AM EDT [facility] Citrated Kaolin W/Heparinase Reaction Time (TEGECMOLIVER) 7.7 4.3 - 8.3 minutes 10/28/2024 1:22 AM EDT [facility] Citrated Kaolin Maximum Amplitude (TEGECMOLIVER) 54.4 52.0 - 69.0 mm 10/28/2024 1:22 AM EDT [facility] Citrated Functional Fibrinogen W/Heparinase Maximum Amplitude(TEGEC MOLIVER) 20.4 15.0 - 34.0 mm 10/28/2024 1:22 AM EDT [facility] Citrated Rapid Teg W/Heparinase Maximum Amplitude (TEGECMOLIVER) 51.0(L) 53.0 - 69.0 mm 10/28/2024 1:22 AM EDT [facility] Citrated Kaolin w/Heparinase Percent Lysis (TEGECMOLIVER) 0.0 0.0 - 3.2 % 10/28/2024 1:22 AM EDT [facility] Whole Blood (Citrate) 10/28/2024 12:05 AM EDT 10/28/2024 12:09 AM EDT Kemar Sahni MD LAB BLOOD ORDERABLES Final Result Performing Organization Address City/[facility]/ZIP Co de Phone Number [facility] [address] * Magnesium (10/28/2024 12:05 AM EDT) Magnesium 2.2 1.5 - 2.5 mg/dL 10/28/2024 1:59 AM EDT [facility] Plasma 10/28/2024 12:0 5 AM EDT 10/28/2024 12:11 AM EDT Kemar Sahni MD LAB BLOOD ORDERABLES Final Result [facility] [address] * (ABNORMAL) Renal Function Panel w/EGFR (10/28/2024 12:05 AM EDT) Sodium 144 133 - 146 mmol/L 10/28/2024 1:59 AM EDT [facility] Potassium 3.4(L) 3.5 - 5.3 mmol/L 10/28/2024 1:59 AM EDT [facility] Chloride 112(H) 98 - 110 mmol/L 10/28/2024 1:59 AM EDT [facility] CO2 19(L) 21 - 33 mmol/L 10/28/2024 1:59 AM EDT [facility] Anion Gap 13 3 - 16 mmol/L 10/28/2024 1:59 AM EDT [facility] BUN 59(H) 7 - 25 mg/dL 10/28/2024 1:59 AM EDT [facility] Creatinine 2.42(H) 0.60 - 1.30 mg/dL 10/28/2024 1:59 AM EDT [facility] Glucose 118(H) 70 - 100 mg/dL 10/28/2024 1:59 AM EDT [facility] Calcium 9.0 8.6 - 10.3 mg/dL 10/28/2024 1:59 AM EDT [facility] Phosphorus 5.3(H) 2.1 - 4.7 mg/dL 10/28/2024 1:59 AM EDT [facility] Albumin 3.1(L) 3.5 - 5.7 g/dL 10/28/2024 1:59 AM EDT [facility] Osmolality, Calculated 316(H) 278 - 305 mOsm/kg 10/28/2024 1:59 AM EDT [facility] EGFR 34 10/28/2024 1:59 AM EDT [facility] Comment:As of 2021, the [...] AM EDT 10/28/2024 12:11 AM EDT Kemar Sanhi MD LAB BLOOD ORDERABLES Final Result [facility] [address] [place] [address], [facility] * (ABNORMAL) Differential (10/28/2024 12:05 AM EDT) Neutrophils Relative 88.6(H) 40.0 - 80.0 % 10/28/2024 12:41 AM EDT [facility] Lymphocytes Relative 2.5(L) 15.0 - 45.0 % 10/28/2024 12:41 AM EDT [facility] Monocytes Relative 6.1 0.0 - 12.0 % 10/28/2024 12:41 AM EDT [facility] Eosinophils Relative 2.4 0.0 - 8.0 % 10/28/2024 12:41 AM EDT [facility] Basophils Relative 0.4 0.0 - 1.0 % 10/28/2024 12:41 AM EDT [facility] nRBC 0 0 - 0 /100 WBC 10/28/2024 12:41 AM EDT [facility] Neutrophils Absolute 4,341 1,520 - 8,640 /uL 10/28/2024 12:41 AM EDT [facility] Lymphocytes Absolute 123(L) 570 - 4,860 /uL 10/28/2024 12:41 AM EDT [facility] Monocytes Absolute 299 0 - 1,296 /uL 10/28/2024 12:41 AM EDT [facility] Eosinophils Absolute 118 0 - 864 /uL 10/28/2024 12:41 AM EDT [facility] Basophils Absolute 20 0 - 108 /uL 10/28/2024 12:41 AM EDT [facility] Whole Blood 10/28/2024 12:0 5 AM EDT 10/28/2024 12:11 AM EDT Kemar Sahni MD LAB BLOOD ORDERABLES Final Result [facility] [address] * (ABNORMAL) CBC (10/28/2024 12:05 AM EDT) WBC 4.9 3.8 - 10.8 10E3/uL 10/28/2024 12:41 AM EDT [facility] RBC 2.18(L) 4.20 - 5.80 10E6/uL 10/28/2024 12:41 AM EDT [facility] Hemoglobin 6.7(L) 13.2 - 17.1 g/dL 10/28/2024 12:41 AM EDT [facility] Hematocrit 19.2(L) 38.5 - 50.0 % 10/28/2024 12:41 AM EDT [facility] MCV 87.8 80.0 - 100.0 fL 10/28/2024 12:41 AM EDT [facility] MCH 30.6 27.0 - 33.0 pg 10/28/2024 12:41 AM EDT [facility] MCHC 34.8 32.0 - 36.0 g/dL 10/28/2024 12:41 AM EDT [facility] RDW 19.6(H) 11.0 - 15.0 % 10/28/2024 12:41 AM EDT [facility] Platelets 45(L) 140 - 400 10E3/uL 10/28/2024 12:41 AM EDT [facility] Comment: CNV Specimen checked for clots. None detected. MPV 7.8 7.5 - 11.5 fL 10/28/2024 12:41 AM EDT [facility] Whole Blood 10/28/2024 12:0 5 AM EDT 10/28/2024 12:11 AM EDT Kemar Sahni MD LAB BLOOD ORDERABLES Final Result [facility] [address] [place] [address], [facility] * (ABNORMAL) POC Glucose Monitoring Device (10/28/2024 12:03 AM EDT) POC Glucose Monitoring Device 122(H) 70 - 100 mg/dL 10/28/2024 12:04 AM EDT [facility] Blood 10/28/2024 12:0 3 AM EDT 10/28/2024 12:04 AM EDT us Semaj Mcnair III, MD POINT OF CARE TEST ORDERABLES Final Result Performing Organization Address City/[facility] Co de Phone Number [facility] [address] [facility]. [address] * (ABNORMAL) POC Glucose Monitoring Device (10/27/2024 10:03 PM EDT) POC Glucose Monitoring Device 127(H) 70 - 100 mg/dL 10/27/2024 10:03 PM EDT [facility] Blood 10/27/2024 10:0 3 PM EDT 10/27/2024 10:03 PM EDT us Semaj Mcnair III, MD POINT OF CARE TEST ORDERABLES Final Result Performing Organization Address [facility] de Phone Number [facility] [address] [place] [address]. [address] * (ABNORMAL) POC Glucose Monitoring Device (10/27/2024 8:06 PM EDT) POC Glucose Monitoring Device 128(H) 70 - 100 mg/dL 10/27/2024 8:45 PM EDT [facility] Blood 10/27/2024 8:06 PM EDT 10/27/2024 8:45 PM EDT us Semaj Mcnair III, MD POINT OF CARE TEST ORDERABLES Final Result Performing Organization Address City/[facility] Co de Phone Number [facility] [address] [facility]. [address] * (ABNORMAL) POC Glucose Monitoring Device (10/27/2024 6:00 PM EDT) [facility] POC Glucose Monitoring Device 128(H) 70 - 100 mg/dL 10/27/2024 6:00 PM EDT [facility] Blood 10/27/2024 6:00 PM EDT 10/27/2024 6:00 PM EDT Semaj Mcnair III, MD POINT OF CARE TEST ORDERABLES Final Result Performing Organization Address [facility] Co de Phone Number [facility] [address] * Lactic Acid, STAT (10/27/2024 5:41 PM EDT) [facility] Lactate 0.5 0.5 - 2.2 mmol/L 10/27/2024 6:28 PM EDT [facility] Plasma 10/27/2024 5:41 PM EDT 10/27/2024 5:49 PM EDT Narrative [facility] - 10/27/2024 6:28 PM EDT Redraw John Moreno MD LAB BLOOD ORDERABLES Final R esult Performing Organization Address City/[facility] Co de Phone Number [facility] [address] * (ABNORMAL) Hepatic Function Panel, STAT (10/27/2024 5:13 PM EDT) [facility] Total Bilirubin 1.7(H) 0.0 - 1.5 mg/dL 10/27/2024 5:50 PM EDT [facility] Bilirubin, Direct 1.17(H) 0.00 - 0.40 mg/dL 10/27/2024 5:50 PM EDT [facility] AST 60(H) 13 - 39 U/L 10/27/2024 5:50 PM EDT [facility] ALT 134(H) 7 - 52 U/L 10/27/2024 5:50 PM EDT [facility] Alkaline Phosphatase 27(L) 36 - 125 U/L 10/27/2024 5:50 PM EDT [facility] Total Protein 4.1(L) 6.4 - 8.9 g/dL 10/27/2024 5:50 PM EDT [facility] Albumin 2.9(L) 3.5 - 5.7 g/dL 10/27/2024 5:50 PM EDT [facility] Bilirubin, Indirect 0.53 0.00 - 1.10 mg/dL 10/27/2024 5:50 PM EDT [facility] Plasma 10/27/2024 5:13 PM EDT 10/27/2024 5:23 PM EDT us Shay Plata MD LAB BLOOD ORDERABLES Final Result [facility] [address] * (ABNORMAL) TEG-Bypass/ECMO/Liver HN (Factor function, Platelet/Fibrin Clot Strength w/Clot Breakdown, Heparinase In All Channels) (10/27/2024 5:13 PM EDT) [facility] Citrated Kaolin Reaction Time (TEGECMOLIVER) 8.0 4.6 - 9.1 minutes 10/27/2024 6:56 PM EDT [facility] Citrated Kaolin W/Heparinase Reaction Time (TEGECMOLIVER) 6.8 4.3 - 8.3 minutes 10/27/2024 6:56 PM EDT [facility] Citrated Kaolin Maximum Amplitude (TEGECMOLIVER) 55.4 52.0 - 69.0 mm 10/27/2024 6:56 PM EDT [facility] Citrated Functional Fibrinogen W/Heparinase Maximum Amplitude(TEGEC MOLIVER) 22.9 15.0 - 34.0 mm 10/27/2024 6:56 PM EDT [facility] Citrated Rapid Teg W/Heparinase Maximum Amplitude (TEGECMOLIVER) 50.8(L) 53.0 - 69.0 mm 10/27/2024 6:56 PM EDT [facility] Citrated Kaolin w/Heparinase Percent Lysis (TEGECMOLIVER) 0.1 0.0 - 3.2 % 10/27/2024 6:56 PM EDT [facility] Whole Blood (Citrate) 10/27/2024 5:13 PM EDT 10/27/2024 5:20 PM EDT Kemar Sahni MD LAB BLOOD ORDERABLES Final Result Performing Organization Address City/[facility] Co de Phone Number [facility] [address] * (ABNORMAL) Protime-INR (10/27/2024 5:13 PM EDT) Protime 15.2(H) 12.1 - 15.1 seconds 10/27/2024 5:40 PM EDT [facility] INR 1.1 0.9 - 1.1 10/27/2024 5:40 PM EDT [facility] Comment: RECOMMENDED THERAPEUTIC RANGES USING INR : Stable oral anticoagulant therapy: 2.0 - 3.0 Mechanical prosthetic heart valve: 2.5 - 3.5 Recurrent acute myocardial infarction: 2.5 - 3.5 Plasma 10/27/2024 5:13 PM EDT 10/27/2024 5:23 PM EDT Kemar Sahni MD LAB BLOOD ORDERABLES Final Result Performing Organization Address [facility] Co de Phone Number [facility] [address] * Magnesium (10/27/2024 5:13 PM EDT) Magnesium 2.4 1.5 - 2.5 mg/dL 10/27/2024 5:53 PM EDT [facility] Plasma 10/27/2024 5:13 PM EDT 10/27/2024 5:23 PM EDT Result [facility] Kemar Sahni MD LAB BLOOD ORDERABLES Final Result Performing Organization Address City/[facility]/ZIP Co de Phone Number [facility] [address] * (ABNORMAL) Hepatic Function Panel (10/27/2024 5:13 PM EDT) Total Bilirubin 1.7(H) 0.0 - 1.5 mg/dL 10/27/2024 5:53 PM EDT [facility] Bilirubin, Direct 1.10(H) 0.00 - 0.40 mg/dL 10/27/2024 5:53 PM EDT [facility] AST 62(H) 13 - 39 U/L 10/27/2024 5:53 PM EDT [facility] ALT 134(H) 7 - 52 U/L 10/27/2024 5:53 PM EDT [facility] Alkaline Phosphatase 27(L) 36 - 125 U/L 10/27/2024 5:53 PM EDT [facility] Total Protein 4.1(L) 6.4 - 8.9 g/dL 10/27/2024 5:53 PM EDT [facility] Albumin 2.9(L) 3.5 - 5.7 g/dL 10/27/2024 5:53 PM EDT [facility] Bilirubin, Indirect 0.60 0.00 - 1.10 mg/dL 10/27/2024 5:53 PM EDT [facility] Plasma 10/27/2024 5:13 PM EDT 10/27/2024 5:23 PM EDT us Kemar Sahni MD LAB BLOOD ORDERABLES Final Result Performing Organization Address City/State/[facility] Co de Phone Number [facility] [address] [place], [place] [address] * (ABNORMAL) Renal Function Panel w/EGFR (10/27/2024 5:13 PM EDT) Sodium 142 133 - 146 mmol/L 10/27/2024 5:53 PM EDT [facility] Potassium 3.4(L) 3.5 - 5.3 mmol/L 10/27/2024 5:53 PM EDT [facility] Chloride 109 98 - 110 mmol/L 10/27/2024 5:53 PM EDT [facility] CO2 22 21 - 33 mmol/L 10/27/2024 5:53 PM EDT [facility] Anion Gap 11 3 - 16 mmol/L 10/27/2024 5:53 PM EDT [facility] BUN 61(H) 7 - 25 mg/dL 10/27/2024 5:53 PM EDT [facility] Creatinine 2.42(H) 0.60 - 1.30 mg/dL 10/27/2024 5:53 PM EDT [facility] Glucose 125(H) 70 - 100 mg/dL 10/27/2024 5:53 PM EDT [facility] Calcium 8.8 8.6 - 10.3 mg/dL 10/27/2024 5:53 PM EDT [facility] Phosphorus 5.7(H) 2.1 - 4.7 mg/dL 10/27/2024 5:53 PM EDT [facility] Albumin 2.9(L) 3.5 - 5.7 g/dL 10/27/2024 5:53 PM EDT [facility] Osmolality, Calculated 313(H) 278 - 305 mOsm/kg 10/27/2024 5:53 PM EDT [facility] EGFR 34 10/27/2024 5:53 PM EDT [facility] Comment:As of 2021, the [...] Sahni MD LAB BLOOD ORDERABLES Final Result [facility] [address] * (ABNORMAL) CBC (10/27/2024 5:13 PM EDT) [facility] WBC 4.9 3.8 - 10.8 10E3/uL 10/27/2024 6:14 PM EDT [facility] RBC 2.44(L) 4.20 - 5.80 10E6/uL 10/27/2024 6:14 PM EDT [facility] Hemoglobin 7.4(L) 13.2 - 17.1 g/dL 10/27/2024 6:14 PM EDT [facility] Hematocrit 21.4(L) 38.5 - 50.0 % 10/27/2024 6:14 PM EDT [facility] MCV 87.6 80.0 - 100.0 fL 10/27/2024 6:14 PM EDT [facility] MCH 30.3 27.0 - 33.0 pg 10/27/2024 6:14 PM EDT [facility] MCHC 34.6 32.0 - 36.0 g/dL 10/27/2024 6:14 PM EDT [facility] RDW 19.6(H) 11.0 - 15.0 % 10/27/2024 6:14 PM EDT [facility] Platelets 47(L) 140 - 400 10E3/uL 10/27/2024 6:14 PM EDT [facility] Comment: CNV Specimen checked for clots. None detected. MPV 8.1 7.5 - 11.5 fL 10/27/2024 6:14 PM EDT [facility] Whole Blood 10/27/2024 5:13 PM EDT 10/27/2024 5:23 PM EDT us Kemar Sahni MD LAB BLOOD ORDERABLES Final Result [facility] [address] * (ABNORMAL) POC Glucose Monitoring Device (10/27/2024 3:57 PM EDT) POC Glucose Monitoring Device 131(H) 70 - 100 mg/dL 10/27/2024 3:58 PM EDT [facility] Blood 10/27/2024 3:57 PM EDT 10/27/2024 3:58 PM EDT Semaj Mcnair III, MD POINT OF CARE TEST ORDERABLES Final Result Performing Organization Address City/State/[facility] Co de Phone Number [facility] [address] [place], [place] [address] * (ABNORMAL) CBC, STAT (10/27/2024 2:40 PM EDT) WBC 5.8 3.8 - 10.8 10E3/uL 10/27/2024 2:54 PM EDT [facility] RBC 2.43(L) 4.20 - 5.80 10E6/uL 10/27/2024 2:54 PM EDT [facility] Hemoglobin 7.5(L) 13.2 - 17.1 g/dL 10/27/2024 2:54 PM EDT [facility] Hematocrit 21.5(L) 38.5 - 50.0 % 10/27/2024 2:54 PM EDT [facility] MCV 88.2 80.0 - 100.0 fL 10/27/2024 2:54 PM EDT [facility] MCH 30.7 27.0 - 33.0 pg 10/27/2024 2:54 PM EDT [facility] MCHC 34.8 32.0 - 36.0 g/dL 10/27/2024 2:54 PM EDT [facility] RDW 19.1(H) 11.0 - 15.0 % 10/27/2024 2:54 PM EDT [facility] Platelets 50(L) 140 - 400 10E3/uL 10/27/2024 2:54 PM EDT [facility] MPV 7.5 7.5 - 11.5 fL 10/27/2024 2:54 PM EDT [facility] Whole Blood 10/27/2024 2:40 PM EDT 10/27/2024 2:44 PM EDT us John Moreno MD LAB BLOOD ORDERABLES Final R esult [facility] [address] [place] [address], [facility] * (ABNORMAL) Blood Gas, Arterial, STAT (10/27/2024 2:40 PM EDT) O2 Sat, Arterial 98 10/27/2024 2:46 PM EDT [facility] FIO2 RA 10/27/2024 2:46 PM EDT [facility] pH, Arterial 7.37 7.35 - 7.45 10/27/2024 2:46 PM EDT [facility] pCO2, Arterial 35 35 - 45 mm Hg 10/27/2024 2:46 PM EDT [facility] pO2, Arterial 92 80 - 100 mm Hg 10/27/2024 2:46 PM EDT [facility] HCO3, Arterial 21(L) 22 - 26 mmol/L 10/27/2024 2:46 PM EDT [facility] CO2 Content,Arteri al 21(L) 23 - 27 mmol/L 10/27/2024 2:46 PM EDT [facility] Base Excess, Arterial -4.6(L) -2.0 - 3.0 mmol/L 10/27/2024 2:46 PM EDT [facility] %HBO2, Arterial 95.4 95.0 - 98.0 % 10/27/2024 2:46 PM EDT [facility] Carboxyhemoglo bin, Arterial 1.6 % 10/27/2024 2:46 PM EDT [facility] Comment: CARBOXYHEMOGLOBIN (CO) REFERENCE RANGES: Non-Smokers: <2 % Smokers: <8 % TOXIC: >20 % Methemoglobin, Arterial 1.0 0.0 - 1.5 % 10/27/2024 2:46 PM EDT [facility] Reduced hemoglobin, Arterial 2.1 0.0 - 5.0 % 10/27/2024 2:46 PM EDT [facility] Blood, Arterial 10/27/2024 2 :40 PM EDT 10/27/2024 2:44 PM EDT Narrative [facility] - 10/27/2024 2:46 PM EDT Post extubation John Moreno MD LAB BLOOD ORDERABLES Final R esult [facility] [address] * (ABNORMAL) POC Glucose Monitoring Device (10/27/2024 2:06 PM EDT) POC Glucose Monitoring Device 134(H) 70 - 100 mg/dL 10/27/2024 2:06 PM EDT [facility] Blood 10/27/2024 2:06 PM EDT 10/27/2024 2:06 PM EDT Semaj Mcnair III, MD POINT OF CARE TEST ORDERABLES Final Result Performing Organization Address [facility]/ZIP Co de Phone Number [facility] [address] * (ABNORMAL) Blood gas, arterial (10/27/2024 12:35 PM EDT) O2 Sat, Arterial 99 10/27/2024 12:46 PM EDT [facility] FIO2 SBT 30% 10/27/2024 12:46 PM EDT [facility] pH, Arterial 7.35 7.35 - 7.45 10/27/2024 12:46 PM EDT [facility] pCO2, Arterial 37 35 - 45 mm Hg 10/27/2024 12:46 PM EDT [facility] pO2, Arterial 182(H) 80 - 100 mm Hg 10/27/2024 12:46 PM EDT [facility] HCO3, Arterial 21(L) 22 - 26 mmol/L 10/27/2024 12:46 PM EDT [facility] CO2 Content,Arteri al 22(L) 23 - 27 mmol/L 10/27/2024 12:46 PM EDT [facility] Base Excess, Arterial -4.8(L) -2.0 - 3.0 mmol/L 10/27/2024 12:46 PM EDT [facility] %HBO2, Arterial 96.3 95.0 - 98.0 % 10/27/2024 12:46 PM EDT [facility] Carboxyhemoglo bin, Arterial 1.7 % 10/27/2024 12:46 PM EDT [facility] Comment: CARBOXYHEMOGLOBIN (CO) REFERENCE RANGES: Non-Smokers: <2 % Smokers: <8 % TOXIC: >20 % Methemoglobin, Arterial 1.4 0.0 - 1.5 % 10/27/2024 12:46 PM EDT [facility] Reduced hemoglobin, Arterial 0.6 0.0 - 5.0 % 10/27/2024 12:46 PM EDT [facility] Blood, Arterial 10/27/2024 1 2:35 PM EDT 10/27/2024 12:42 PM EDT Narrative [facility] - 10/27/2024 12:46 PM EDT Please obtain post SBT us Shay Sifuentes MD LAB BLOOD ORDERABLES Final Resu lt [facility] [address] [id number] * (ABNORMAL) TEG-Bypass/ECMO/Liver HN (Factor function, Platelet/Fibrin Clot Strength w/Clot Breakdown, Heparinase In All Channels) (10/27/2024 12:07 PM EDT) [facility] Citrated Kaolin Reaction Time (TEGECMOLIVER) 7.9 4.6 - 9.1 minutes 10/27/2024 1:24 PM EDT [facility] Citrated Kaolin W/Heparinase Reaction Time (TEGECMOLIVER) 8.3 4.3 - 8.3 minutes 10/27/2024 1:24 PM EDT [facility] Citrated Kaolin Maximum Amplitude (TEGECMOLIVER) 52.0 52.0 - 69.0 mm 10/27/2024 1:24 PM EDT [facility] Citrated Functional Fibrinogen W/Heparinase Maximum Amplitude(TEGEC MOLIVER) 20.1 15.0 - 34.0 mm 10/27/2024 1:24 PM EDT [facility] Citrated Rapid Teg W/Heparinase Maximum Amplitude (TEGECMOLIVER) 49.4(L) 53.0 - 69.0 mm 10/27/2024 1:24 PM EDT [facility] Citrated Kaolin w/Heparinase Percent Lysis (TEGECMOLIVER) 0.0 0.0 - 3.2 % 10/27/2024 1:24 PM EDT [facility] Whole Blood (Citrate) 10/27/2024 12:07 PM EDT 10/27/2024 12:09 PM EDT Kemar Sahni MD LAB BLOOD ORDERABLES Final Result Performing Organization Address City/[facility]/ZIP Co de Phone Number [facility] [address] [facility]. [address] * (ABNORMAL) POC Glucose Monitoring Device (10/27/2024 12:01 PM EDT) POC Glucose Monitoring Device 121(H) 70 - 100 mg/dL 10/27/2024 12:02 PM EDT [facility] Blood 10/27/2024 12:0 1 PM EDT 10/27/2024 12:01 PM EDT Semaj Mcnair III, MD POINT OF CARE TEST ORDERABLES Final Result Performing Organization Address [facility] Co de Phone Number [facility] [address] [place] [address]. [address] * (ABNORMAL) POC Glucose Monitoring Device (10/27/2024 10:59 AM EDT) POC Glucose Monitoring Device 126(H) 70 - 100 mg/dL 10/27/2024 11:10 AM EDT [facility] Blood 10/27/2024 10:5 9 AM EDT 10/27/2024 11:10 AM EDT Semaj Mcnair III, MD POINT OF CARE TEST ORDERABLES Final Result Performing Organization Address City/[facility] Co de Phone Number [facility] [address] [place] [address] * ECG 12 lead (MUSE) (10/27/2024 10:17 AM EDT) 10/27/2024 10:1 7 AM EDT Narrative MUSE - 10/27/2024 2:51 PM EDT Ventricular Rate: 91 BPM Atrial Rate: 91 BPM P-R Interval: 168 ms QRS Duration: 90 ms QT: 274 ms QTc: 337 ms P [place]: 60 degrees R [place]: -30 degrees T [place]: -15 degrees Diagnosis Line: NORMAL SINUS RHYTHM ^ LEFT AXIS DEVIATION, LEFT ANTERIOR HEMIBLOCK ^ NONSPECIFIC T WAVE CHANGE ^ ABNORMAL ECG ^ ^ Confirmed by MD ROLLY, [facility] ([id number]) on 10/27/2024 2:51:52 PM Shay Sifuentes MD ECG ORDERABLES Final Result [facility]USE * (ABNORMAL) POC Glucose Monitoring Device (10/27/2024 10:00 AM EDT) [facility] POC Glucose Monitoring Device 121(H) 70 - 100 mg/dL 10/27/2024 10:01 AM EDT [facility] Blood 10/27/2024 10:0 0 AM EDT 10/27/2024 10:01 AM EDT Semaj Mcnair III, MD POINT OF CARE TEST ORDERABLES Final Result [facility] [address] * US Renal Transplant (10/27/2024 9:51 [...] Rodriguez MD at 10/27/2024 10:28 AM EDT Sveta Judge MD [facility] [place] ORDERABLES Final Result * US Duplex [id number] Comp (10/27/2024 9:51 AM EDT) Anatomical Region [...] EXAM: US ABDOMEN LIMITED EXAM: US DUPLEX [id number] COMPLETE INDICATION: Post-op liver transplant COMPARISON: None [...] absent.. Pancreas: Obscured by overlying bowel gas. [place] right kidney: 12.5 cm in length. Normal [...] EXAM: US ABDOMEN LIMITED EXAM: US DUPLEX [id number] COMPLETE INDICATION: Post-op liver transplant COMPARISON: None [...] absent.. Pancreas: Obscured by overlying bowel gas. [place] right kidney: 12.5 cm in length. Normal [...] EXAM: US ABDOMEN LIMITED EXAM: US DUPLEX [id number] COMPLETE INDICATION: Post-op liver transplant COMPARISON: None [...] absent.. Pancreas: Obscured by overlying bowel gas. [place] right kidney: 12.5 cm in length. Normal [...] EXAM: US ABDOMEN LIMITED EXAM: US DUPLEX [id number] COMPLETE INDICATION: Post-op liver transplant COMPARISON: None [...] absent.. Pancreas: Obscured by overlying bowel gas. [place] right kidney: 12.5 cm in length. Normal [...] - 100 mg/dL 10/27/2024 9:06 AM EDT [facility] Blood 10/27/2024 9:05 AM EDT 10/27/2024 9:06 AM EDT us Semaj Mcnair III, MD POINT OF CARE TEST ORDERABLES Final Result [facility] [address] [id number] * X-ray Portable Chest (10/27/2024 8:58 [...] 10/27/2024 9:22 AM EDT John Moreno MD [facility] DIAGNOSTIC IMAGING ORDER PAL Final Result * (ABNORMAL) Protime-INR, STAT (10/27/2024 8:16 AM EDT) Protime 16.2(H) 12.1 - 15.1 seconds 10/27/2024 8:35 AM EDT [facility] INR 1.2(H) 0.9 - 1.1 10/27/2024 8:35 AM EDT [facility] Comment: RECOMMENDED THERAPEUTIC RANGES USING INR : Stable oral anticoagulant therapy: 2.0 - 3.0 Mechanical prosthetic heart valve: 2.5 - 3.5 Recurrent acute myocardial infarction: 2.5 - 3.5 Plasma 10/27/2024 8:16 AM EDT 10/27/2024 8:20 AM EDT John Moreno MD LAB BLOOD ORDERABLES Final R esult Performing Organization Address City/[facility]/ZIP Co de Phone Number [facility] [address] * Magnesium (10/27/2024 8:00 AM EDT) Magnesium 1.8 1.5 - 2.5 mg/dL 10/27/2024 10:50 AM EDT [facility] Plasma 10/27/2024 8:00 AM EDT 10/27/2024 10:31 AM EDT Kemar Sahni MD LAB BLOOD ORDERABLES Final Result Performing Organization Address [facility] de Phone Number [facility] [address] * (ABNORMAL) Renal Function Panel w/EGFR (10/27/2024 8:00 AM EDT) Sodium 142 133 - 146 mmol/L 10/27/2024 10:18 AM EDT [facility] Potassium 3.0(L) 3.5 - 5.3 mmol/L 10/27/2024 10:18 AM EDT [facility] Chloride 109 98 - 110 mmol/L 10/27/2024 10:18 AM EDT [facility] CO2 21 21 - 33 mmol/L 10/27/2024 10:18 AM EDT [facility] Anion Gap 12 3 - 16 mmol/L 10/27/2024 10:18 AM EDT [facility] BUN 59(H) 7 - 25 mg/dL 10/27/2024 10:18 AM EDT [facility] Creatinine 2.54(H) 0.60 - 1.30 mg/dL 10/27/2024 10:18 AM EDT [facility] Glucose 111(H) 70 - 100 mg/dL 10/27/2024 10:18 AM EDT [facility] Calcium 9.1 8.6 - 10.3 mg/dL 10/27/2024 10:18 AM EDT [facility] Phosphorus 5.5(H) 2.1 - 4.7 mg/dL 10/27/2024 10:18 AM EDT [facility] Albumin 3.0(L) 3.5 - 5.7 g/dL 10/27/2024 10:18 AM EDT [facility] Osmolality, Calculated 311(H) 278 - 305 mOsm/kg 10/27/2024 10:18 AM EDT [facility] EGFR 32 10/27/2024 10:18 AM EDT [facility] Comment:As of 2021, the [...] Sahni MD LAB BLOOD ORDERABLES Final Result [facility] [address] [place] [id number], [facility] * (ABNORMAL) Hepatic Function Panel, STAT (10/27/2024 8:00 AM EDT) Total Bilirubin 1.3 0.0 - 1.5 mg/dL 10/27/2024 8:51 AM EDT [facility] Bilirubin, Direct 0.93(H) 0.00 - 0.40 mg/dL 10/27/2024 8:51 AM EDT [facility] AST 88(H) 13 - 39 U/L 10/27/2024 8:51 AM EDT [facility] ALT 149(H) 7 - 52 U/L 10/27/2024 8:51 AM EDT [facility] Alkaline Phosphatase 26(L) 36 - 125 U/L 10/27/2024 8:51 AM EDT [facility] Total Protein 4.0(L) 6.4 - 8.9 g/dL 10/27/2024 8:51 AM EDT [facility] Albumin 3.0(L) 3.5 - 5.7 g/dL 10/27/2024 8:51 AM EDT [facility] Bilirubin, Indirect 0.37 0.00 - 1.10 mg/dL 10/27/2024 8:51 AM EDT [facility] Plasma 10/27/2024 8:00 AM EDT 10/27/2024 8:20 AM EDT us Semaj Mcnair III, MD LAB BLOOD ORDERABLE S Final Result Performing Organization Address [facility] Co de Phone Number [facility] [address] * (ABNORMAL) Lactic Acid, STAT (10/27/2024 8:00 AM EDT) Lactate 0.4(L) 0.5 - 2.2 mmol/L 10/27/2024 8:43 AM EDT [facility] Plasma 10/27/2024 8:00 AM EDT 10/27/2024 8:20 AM EDT us Semaj Mcnair III, MD LAB BLOOD ORDERABLE S Final Result Performing Organization Address [facility]/ZIP Co de Phone Number [facility] [address] [place] [id number] * (ABNORMAL) Blood Gas, Arterial, STAT (10/27/2024 8:00 AM EDT) O2 Sat, Arterial 100 10/27/2024 8:23 AM EDT [facility] pH, Arterial 7.36 7.35 - 7.45 10/27/2024 8:23 AM EDT [facility] pCO2, Arterial 37 35 - 45 mm Hg 10/27/2024 8:23 AM EDT [facility] pO2, Arterial 245(H) 80 - 100 mm Hg 10/27/2024 8:23 AM EDT [facility] HCO3, Arterial 22 22 - 26 mmol/L 10/27/2024 8:23 AM EDT [facility] CO2 Content,Arteri al 22(L) 23 - 27 mmol/L 10/27/2024 8:23 AM EDT [facility] Base Excess, Arterial -4.2(L) -2.0 - 3.0 mmol/L 10/27/2024 8:23 AM EDT [facility] %HBO2, Arterial 96.5 95.0 - 98.0 % 10/27/2024 8:23 AM EDT [facility] Carboxyhemoglo bin, Arterial 2.2 % 10/27/2024 8:23 AM EDT [facility] Comment: CARBOXYHEMOGLOBIN (CO) REFERENCE RANGES: Non-Smokers: <2 % Smokers: <8 % TOXIC: >20 % Methemoglobin, Arterial 1.2 0.0 - 1.5 % 10/27/2024 8:23 AM EDT [facility] Reduced hemoglobin, Arterial 0.0 0.0 - 5.0 % 10/27/2024 8:23 AM EDT [facility] Blood, Arterial 10/27/2024 8 :00 AM EDT 10/27/2024 8:19 AM EDT Narrative [facility] - 10/27/2024 8:23 AM EDT Specimen is beyond 15 minutes from time of collection. Results may be compromised. Review results critically. us Kemar Sahni MD LAB BLOOD ORDERABLES Final Result [facility] [address] * (ABNORMAL) TEG-Bypass/ECMO/Liver HN (Factor function, Platelet/Fibrin Clot Strength w/Clot Breakdown, Heparinase In All Channels) (10/27/2024 8:00 AM EDT) Citrated Kaolin Reaction Time (TEGECMOLIVER) 7.8 4.6 - 9.1 minutes 10/27/2024 9:39 AM EDT [facility] Citrated Kaolin W/Heparinase Reaction Time (TEGECMOLIVER) 8.0 4.3 - 8.3 minutes 10/27/2024 9:39 AM EDT [facility] Citrated Kaolin Maximum Amplitude (TEGECMOLIVER) 52.7 52.0 - 69.0 mm 10/27/2024 9:39 AM EDT [facility] Citrated Functional Fibrinogen W/Heparinase Maximum Amplitude(TEGEC MOLIVER) 19.0 15.0 - 34.0 mm 10/27/2024 9:39 AM EDT [facility] Citrated Rapid Teg W/Heparinase Maximum Amplitude (TEGECMOLIVER) 49.5(L) 53.0 - 69.0 mm 10/27/2024 9:39 AM EDT [facility] Citrated Kaolin w/Heparinase Percent Lysis (TEGECMOLIVER) 0.0 0.0 - 3.2 % 10/27/2024 9:39 AM EDT [facility] Whole Blood (Citrate) 10/27/2024 8:00 AM EDT 10/27/2024 8:19 AM EDT us Kemar Sanhi MD LAB BLOOD ORDERABLES Final Result [facility] [address] [facility]. [address] * (ABNORMAL) Katie-Watkins virus VCA IgG Antibody (10/27/2024 8:00 AM EDT) EBV VCA IgG Positive( A) Negative 10/27/2024 11:30 AM EDT [facility] Comment:Presence of detectab le VCA IgG antibodies. 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 EBV IGG NUM 314.00(H) 0.00 - 17.99 U/mL 10/27/2024 11:30 AM EDT [facility] Serum 10/27/2024 8:00 AM EDT 10/27/2024 8:20 AM EDT Kemar Sahni MD LAB BLOOD ORDERABLES Final Result Performing Organization Address City/[facility] Co de Phone Number [facility] [address] [employer] [facility]. [address] * Hemoglobin A1c (10/27/2024 8:00 AM EDT) Hemoglobin A1C 5.0 4.0 - 5.6 % 10/27/2024 11:12 AM EDT [facility] Comment: Hemoglobin A1c Interpretation [...] - [place]/ZIP Co de Phone Number [facility] [address] [employer] [facility] [employer] [facility]. [address] * (ABNORMAL) POC Glucose Monitoring Device (10/27/2024 7:59 AM EDT) POC Glucose Monitoring Device 113(H) 70 - 100 mg/dL 10/27/2024 7:59 AM EDT [facility] Blood 10/27/2024 7:59 AM EDT 10/27/2024 7:59 AM EDT us Semaj Mcnair III, MD POINT OF CARE TEST ORDERABLES Final Result [facility] [address] [place] [address], [facility] * X-ray Abdomen AP view (10/27/2024 7:47 [...] Units (10/27/2024 6:16 AM EDT) Product Code G7881A52 HCLL Unit Number [id number] HCLL Dispense Status Presumed Transfused_PT HCLL Blood Expiration Date [id number] HCLL Coding System [id number] HCLL Product Code B7823N42 HCLL Unit Number [id number] HCLL Dispense Status Presumed Transfused_PT HCLL Blood Expiration Date 071234345818 HCLL Coding System ZZVE191 HCLL Blood Bank Product John Pina MD BLOOD BANK PRODUCT ORDERABLES F inal Result HCLL * Prepare Platelets, leukoreduced, 1 Units (10/27/2024 6:16 AM EDT) Product Code E1611K30 HCLL Unit Number [id number] HCLL Dispense Status Presumed Transfused_PT HCLL Blood Expiration Date [id number] HCLL Coding System NJIV886 HCLL Blood Bank Product Eber Quinones MD BLOOD BANK PRODUCT ORDER PAL Final Result HCLL * Prepare Cryoprecipitate, 1 Units (10/27/2024 6:16 AM EDT) Product Code E2758O97 HCLL Unit Number [id number] HCLL Dispense Status Presumed Transfused_PT HCLL Blood Expiration Date HCLL Coding System RBYM180 HCLL Product Code J3745P59 HCLL Unit Number [id number] HCLL Dispense Status Presumed Transfused_PT HCLL Blood Expiration Date 450586567983 HCLL Coding System VIGV315 HCLL Blood Bank Product Eber Quinones MD BLOOD BANK PRODUCT ORDER PAL Final Result Performing Organization Address [facility] Co de Phone Number HCLL * Prepare Fresh Frozen Plasma, 10 Units (10/27/2024 6:16 AM EDT) Product Code U9973W26 HCLL Unit Number [id number] HCLL Dispense Status Presumed Transfused_PT HCLL Blood Expiration Date HCLL Coding System HAME925 HCLL Product Code T3627N78 HCLL Unit Number [id number] HCLL Dispense Status Presumed Transfused_PT HCLL Blood Expiration Date HCLL Coding System XGHK445 HCLL Product Code H1507K86 HCLL Unit Number [id number] HCLL Dispense Status Presumed Transfused_PT HCLL Blood Expiration Date 218262597548 HCLL Coding System CQCC866 HCLL Product Code E1826L46 HCLL Unit Number [id number] HCLL Dispense Status Presumed Transfused_PT HCLL Blood Expiration Date 902470030852 HCLL Coding System FHIT262 HCLL Product Code X2153A71 HCLL Unit Number [id number] HCLL Dispense Status Released from Crossmatch_RE HCLL Blood Expiration Date 356266414227 HCLL Coding System PLPE121 HCLL Product Code W1813O72 HCLL Unit Number [id number] HCLL Dispense Status Released from Crossmatch_RE HCLL Blood Expiration Date HCLL Coding System OADE024 HCLL Product Code T3997A79 HCLL Unit Number [id number] HCLL Dispense Status Presumed Transfused_PT HCLL Blood Expiration Date HCLL Coding System QQEK635 HCLL Product Code G6969C46 HCLL Unit Number [id number] HCLL Dispense Status Presumed Transfused_PT HCLL Blood Expiration Date HCLL Coding System MXQV733 HCLL Product Code X0042S68 HCLL Unit Number [id number] HCLL Dispense Status Presumed Transfused_PT HCLL Blood Expiration Date HCLL Coding System YKRW841 HCLL Product Code J0245G81 HCLL Unit Number [id number] HCLL Dispense Status Presumed Transfused_PT HCLL Blood Expiration Date 437754378812 HCLL Coding System GUZC509 HCLL Blood Bank Product us Leandra Og MD BLOOD BANK PRODUCT ORD ERABLES Final Result Performing Organization Address City/[facility]/ZIP Co de Phone Number HCLL * Prepare Platelets, leukoreduced, 1 Units (10/27/2024 6:16 AM EDT) Product Code H5116S06 HCLL Unit Number [id number] HCLL Dispense Status Presumed Transfused_PT HCLL Blood Expiration Date 815881351875 HCLL Coding System JUOL604 HCLL Blood Bank Product Ben Blake MD BLOOD BANK PRODUCT ORDERABLES Final Result HCLL * Prepare Fresh Frozen Plasma (10/27/2024 6:15 AM EDT) Product Code L4280L08 HCLL Unit Number [id number] HCLL Dispense Status Presumed Transfused_PT HCLL Blood Expiration Date 048702066913 HCLL Coding System PQBL876 HCLL Product Code C2805V28 HCLL Unit Number [id number] HCLL Dispense Status Released from Crossmatch_RE HCLL Blood Expiration Date HCLL Coding System NDXL842 HCLL Product Code S1457N43 HCLL Unit Number [id number] HCLL Dispense Status Presumed Transfused_PT HCLL Blood Expiration Date HCLL Coding System CMFO404 HCLL Product Code M1767U31 HCLL Unit Number [id number] HCLL Dispense Status Presumed Transfused_PT HCLL Blood Expiration Date HCLL Coding System LSXU594 HCLL Product Code K3291D56 HCLL Unit Number [id number] HCLL Dispense Status Released from Crossmatch_RE HCLL Blood Expiration Date HCLL Coding System EOYV732 HCLL Attending Provider Unknown BLOOD BANK PRODUCT OR DERABLES Final Result HCLL * Prepare RBC, leukoreduced (10/27/2024 6:15 AM EDT) Product Code E5954M49 HCLL Unit Number [id number] HCLL Dispense Status Presumed Transfused_PT HCLL Blood Expiration Date 277606293026 HCLL Coding System EBVE693 HCLL Product Code J4244L69 HCLL Unit Number [id number] HCLL Dispense Status Released from Crossmatch_RE HCLL Blood Expiration Date HCLL Coding System MZQL683 HCLL Product Code B1780V04 HCLL Unit Number [id number] HCLL Dispense Status Released from Crossmatch_RE HCLL Blood Expiration Date 454553239602 HCLL Coding System GGAK757 HCLL Product Code P1092M17 HCLL Unit Number [id number] HCLL Dispense Status Released from Crossmatch_RE HCLL Blood Expiration Date 012515495623 HCLL Coding System IOIV637 HCLL Product Code P7971S41 HCLL Unit Number [id number] HCLL Dispense Status Released from Crossmatch_RE HCLL Blood Expiration Date 342890111669 HCLL Coding System GATW338 HCLL us Attending Provider Unknown BLOOD BANK PRODUCT OR DERABLES Final Result HCLL * Prepare RBC, leukoreduced, 10 Units (10/27/2024 6:15 AM EDT) Product Code Y5774Y94 HCLL Unit Number [id number] HCLL Dispense Status Presumed Transfused_PT HCLL Blood Expiration Date HCLL Coding System HFUL611 HCLL Product Code I6797Q61 HCLL Unit Number [id number] HCLL Dispense Status Presumed Transfused_PT HCLL Blood Expiration Date 168730693884 HCLL Coding System WBEU741 HCLL Product Code A6997Y75 HCLL Unit Number [id number] HCLL Dispense Status Presumed Transfused_PT HCLL Blood Expiration Date 366179591065 HCLL Coding System IHQF352 HCLL Product Code V3550F50 HCLL Unit Number [id number] HCLL Dispense Status Presumed Transfused_PT HCLL Blood Expiration Date 898189837699 HCLL Coding System MMKV501 HCLL Product Code P2205F76 HCLL Unit Number [id number] HCLL Dispense Status Presumed Transfused_PT HCLL Blood Expiration Date HCLL Coding System GWJB823 HCLL Product Code E7223K50 HCLL Unit Number [id number] HCLL Dispense Status Presumed Transfused_PT HCLL Blood Expiration Date HCLL Coding System FZTU341 HCLL Product Code T9342X60 HCLL Unit Number [id number] HCLL Dispense Status Presumed Transfused_PT HCLL Blood Expiration Date HCLL Coding System PZQA765 HCLL Product Code A2188S20 HCLL Unit Number [id number] HCLL Dispense Status Presumed Transfused_PT HCLL Blood Expiration Date 554041514785 HCLL Coding System HZSN513 HCLL Product Code Q4688M49 HCLL Unit Number [id number] HCLL Dispense Status Presumed Transfused_PT HCLL Blood Expiration Date 518253902850 HCLL Coding System XFAT103 HCLL Product Code B3746Z76 HCLL Unit Number [id number] HCLL Dispense Status Presumed Transfused_PT HCLL Blood Expiration Date 838864336047 HCLL Coding System JPEB730 HCLL Blood Bank Product us Leandra Og MD BLOOD BANK PRODUCT ORD ERABLES Final Result HCLL * Transfuse Platelets (10/27/2024 6:09 AM EDT) us Ben Blake MD NURSING TREATMENT ORDERABLES - BLOOD ADMIN Final Result * (ABNORMAL) Arterial Blood Gas Panel (10/27/2024 6:09 AM EDT) O2Sat (ABGP) 100 10/27/2024 6:17 AM EDT [facility] pH (ABGP) 7.30(L) 7.35 - 7.45 10/27/2024 6:17 AM EDT [facility] PCO2 (ABGP) 41 35 - 45 mm Hg 10/27/2024 6:17 AM EDT [facility] PO2 (ABGP) 192(H) 80 - 100 mm Hg 10/27/2024 6:17 AM EDT [facility] HCO3 (ABGP) 21(L) 22 - 26 mmol/L 10/27/2024 6:17 AM EDT [facility] CO2 Content (ABGP) 22(L) 23 - 27 mmol/L 10/27/2024 6:17 AM EDT [facility] Base Excess (ABGP) -5.7(L) -2.0 - 3.0 mmol/L 10/27/2024 6:17 AM EDT [facility] Sodium (ABGP) 138 136 - 146 mEq/L 10/27/2024 6:17 AM EDT [facility] Potassium (ABGP) 3.3(L) 3.5 - 5.0 mEq/L 10/27/2024 6:17 AM EDT [facility] Comment:In the event of in-v itro hemolysis, potassium results may be falsely elevated. Always interpret lab results in conjunction with clinical findings. If hemolysis is suspected, a serum sample may be collected for repeat assessment of potassium. Calcium, Free (ABGP) 5.28 4.50 - 5.30 mg/dL 10/27/2024 6:17 AM EDT [facility] Glucose (ABGP) 112(H) 70 - 100 mg/dL 10/27/2024 6:17 AM EDT [facility] Comment:There is interferenc e with whole blood glucose results on this method when Hematocrit is <25% or >60%. HCT (ABGP) 20.0(L) 40.0 - 52.0 % 10/27/2024 6:17 AM EDT [facility] HGB (ABGP) 6.5(L) 14.0 - 18.0 g/dL 10/27/2024 6:17 AM EDT [facility] %HBO2 (ABGP) 96.8 95.0 - 98.0 % 10/27/2024 6:17 AM EDT [facility] Carboxyhgb (ABGP) 2.1 % 025 6:17 AM EDT [facility] Comment: CARBOXYHEMOGLOBIN (CO) REFERENCE RANGES: Non-Smokers: <2 % Smokers: <8 % TOXIC: >20 % Methemoglobin (ABGP) 1.0 0.0 - 1.5 % 10/27/2024 6:17 AM EDT [facility] Reduced Hemoglobin (ABGP) 0.2 0.0 - 5.0 % 10/27/2024 6:17 AM EDT [facility] Lactic Acid (ABGP) 0.4(L) 0.5 - 1.6 mmol/L 10/27/2024 6:17 AM T [facility] Blood, Arterial 10/27/2024 6 :09 AM EDT 10/27/2024 6:14 AM EDT us Ben Blake MD LAB BLOOD ORDERABLES Final Re sult [facility] [address] [facility]. [address] * Transfuse Fresh Frozen Plasma (10/27/2024 5:49 AM EDT) Ben Blake MD NURSING TREATMENT ORDERABLES - BLOOD ADMIN Final Result * Transfuse Cryoprecipitate (10/27/2024 4:56 AM EDT) Ben Blake MD NURSING TREATMENT ORDERABLES - BLOOD ADMIN Final Result * Transfuse Cryoprecipitate (10/27/2024 4:49 AM EDT) Result [facility] Ben Blake MD NURSING TREATMENT ORDERABLES - BLOOD ADMIN Final Result * (ABNORMAL) POC Glucose Monitoring Device (10/27/2024 4:46 AM EDT) POC Glucose Monitoring Device 124(H) 70 - 100 mg/dL 10/27/2024 4:47 AM EDT [facility] Blood 10/27/2024 4:46 AM EDT 10/27/2024 4:47 AM EDT Result [facility] Semaj Mcnair III, MD POINT OF CARE TEST ORDERABLES Final Result Performing Organization Address [facility] de Phone Number [facility] [address] [facility]. [address] * Transfuse Platelets (10/27/2024 4:24 AM [...] O2Sat (ABGP) 100 10/27/2024 3:21 AM EDT [facility] pH (ABGP) 7.32(L) 7.35 - 7.45 10/27/2024 [facility] PCO2 (ABGP) 38 35 - 45 mm Hg 10/27/2024 3:21 AM [facility] PO2 (ABGP) 176(H) 80 - 100 mm Hg 10/27/2024 3:21 AM [facility] HCO3 (ABGP) 20(L) 22 - 26 mmol/L 10/27/2024 3:21 AM [facility] CO2 Content (ABGP) 21(L) 23 - 27 mmol/L 10/27/2024 3:21 AM [facility] Base Excess (ABGP) -6.0(L) -2.0 - 3.0 mmol/L 10/27/2024 3:21 AM [facility] Sodium (ABGP) 138 136 - 146 mEq/L 10/27/2024 3:21 AM [facility] Potassium (ABGP) 3.0(L) 3.5 - 5.0 mEq/L 10/27/2024 3:21 AM [facility] Comment:In the event of in-v itro hemolysis, potassium results may be falsely elevated. Always interpret lab results in conjunction with clinical findings. If hemolysis is suspected, a serum sample may be collected for repeat assessment of potassium. Calcium, Free (ABGP) 5.28 4.50 - 5.30 mg/dL 10/27/2024 3:21 AM [facility] Glucose (ABGP) 108(H) 70 - 100 mg/dL 10/27/2024 3:21 AM [facility] Comment:There is interferenc e with whole blood glucose results on this method when Hematocrit is <25% or >60%. HCT (ABGP) 22.0(L) 40.0 - 52.0 % 10/27/2024 3:21 AM [facility] HGB (ABGP) 7.3(L) 14.0 - 18.0 g/dL 10/27/2024 3:21 AM [facility] %HBO2 (ABGP) 97.3 95.0 - 98.0 % 10/27/2024 3:21 AM [facility] Carboxyhgb (ABGP) 1.9 % 025 3:21 AM EDT [facility] Comment: CARBOXYHEMOGLOBIN (CO) REFERENCE RANGES: Non-Smokers: <2 % Smokers: <8 % TOXIC: >20 % Methemoglobin (ABGP) 0.8 0.0 - 1.5 % 10/27/2024 3:21 AM EDT [facility] Reduced Hemoglobin (ABGP) 0.0 0.0 - 5.0 % 10/27/2024 3:21 AM EDT [facility] Lactic Acid (ABGP) 0.3(L) 0.5 - 1.6 mmol/L 10/27/2024 3:21 AM EDT [facility] Blood, Arterial 10/27/2024 3 :07 AM EDT 10/27/2024 3:14 AM EDT us Ben Blake MD LAB BLOOD ORDERABLES Final Re sult Performing Organization Address City/State/[facility] Co de Phone Number [facility] [address] * Surgical Pathology Exam (10/27/2024 2:38 AM EDT) Tissue LEFT KIDNEY STRUCTURE / Unknown 10/27/2024 2:38 AM EDT Narrative [facility] - 10/27/2024 12:00 AM EDT CASE: [id number] PATIENT: BLAIR GILBERT Clinical History: Transplant kidney with bile duct reconstruction Pre-Operative Diagnosis: Acute kidney injury superimposed on CKD Post-Operative Diagnosis: None Given Specimen(s) Submitted: A. baseline renal biopsy ; B. right lobe liver biopsy; C. left lobe liver biopsy CPT Code(s): 06565 X 1; 49279 X 2; 65660 X 4 Additional Information: FINAL DIAGNOSIS: A. [...] parenchyma, which is entirely submitted in cassette [employer] [id number] A1. (NAA Mckeon/rr) B. Received in formalin, labeled with the patient's name Blair Gilbert and right lobe liver biopsy are two green-brown tissue cores measuring 1.8 and 2.0 cm in length, each with a diameter of 0.1 cm, which are entirely submitted between blue biopsy sponges in cassette [employer] [id number] B1-B2. (NAA Mckeon/ns) C. Received in formalin, labeled with the patient's name Blair Gilbert and left lobe liver biopsy are two green-georges tissue cores measuring 1.2 and 1.4 cm in length, each with a diameter of 0.1 cm, which are entirely submitted between blue biopsy sponges in cassette [employer] [id number] C1-C2. (NAA Mckeon/ns) Microscopic Description: I, the attending pathologist, have personally reviewed all prosector/resident work and pathology slides to determine final diagnosis. Control Materials Reacted Appropriately. Final Diagnosis performed by CLARE FALL MD Pathologist Electronically signed 10/31/2024 01:07:09 PM The Pathologist signing this report is located at [facility], [address] [place] [address], [facility] [phone], CLIA ID: [id number] ADDENDUM: A. Kidney, allograft, baseline, wedge biopsy: [...] Pathologist signing this report is located at [facility], [address] [place] [address], [facility], , CLIA ID: [id number] Kemar Sahni MD PATHOLOGY/CYTOLOGY ORDERABL ES Edited Result - Final Performing Organization Address [facility]/ZIP Co de Phone Number [facility] * Anaerobic culture (10/27/2024 2:15 AM EDT) Culture Result No Anaerobes Isolated in 5 Days [facility] Fluid SPECIMEN FROM KIDNEY / Unknown 10/27/2024 2:15 AM EDT 10/27/2024 4:24 AM EDT Narrative [facility] - 10/31/2024 11:43 AM EDT 1) perfusate Semaj Mcnair III, MD MICROBIOLOGY - GENE RAL ORDERABLES Final Result Performing Organization Address [facility] de Phone Number [facility] [address] [place] [address] * Routine Culture plus Stain (10/27/2024 2:15 AM EDT) Gram Stain Result No Polymorphonuclear Leukocytes Seen [facility] Gram Stain Result No Organisms Seen; [facility] Culture Result No Growth After 3 Days [facility] Fluid SPECIMEN FROM KIDNEY / Unknown 10/27/2024 2:15 AM EDT 10/27/2024 4:24 AM EDT Narrative [facility] - 10/30/2024 9:26 AM EDT 1) perfusate us Semaj Mcnair III, MD MICROBIOLOGY - GENE RAL ORDERABLES Final Result Performing Organization Address City/[facility]/ZIP Co de Phone Number [facility] [address] [place] [address], [facility] * Transfuse Platelets Transfusion Rate: Per dept [...] Organization Address City/[facility] Co de Phone Number EXTERNAL * (ABNORMAL) TEG-Standard Global Hemostasis (Rapid TEG with Heparin Effect, Contains a Baseline TEG) (10/27/2024 1:51 AM EDT) [facility] Citrated Kaolin Reaction Time (TEGHEPARINASE) 10.6(H) 4.6 - 9.1 minutes 10/27/2024 2:44 AM EDT [facility] Citrated Rapid Teg Maximum Amplitude (TEGHEPARINASE) 42.3(L) 52.0 - 70.0 mm 10/27/2024 2:44 AM EDT [facility] Citrated Functional Fibrinogen Maximum Amplitude (TEGHEPARINASE) 15.0 15.0 - 32.0 mm 10/27/2024 2:44 AM EDT [facility] Citrated Kaolin W/Heparinase Reaction Time (TEGHEPARINASE) 10.5(H) 4.3 - 8.3 minutes 10/27/2024 2:44 AM EDT [facility] Citrated Kaolin K-Time (TEGHEPARINASE) 2.9(A) 0.8 - 2.1 minutes 10/27/2024 2:44 AM EDT [facility] Citrated Kaolin Angle (TEGHEPARINASE) 60.4(A) 63.0 - 78.0 degrees 10/27/2024 2:44 AM EDT [facility] Citrated Kaolin Maximum Amplitude (TEGHEPARINASE) 42.9(L) 52.0 - 69.0 mm 10/27/2024 2:44 AM EDT [facility] Citrated Functional Fibrinogen- Fibrinogen Level (TEGHEPARINASE) 273.7(L) 278.0 - 581.0 mg/dL 10/27/2024 2:44 AM EDT [facility] Whole Blood (Citrate) 10/27/2024 1:51 AM EDT 10/27/2024 2:03 AM EDT John Pina MD LAB BLOOD ORDERABLES Final Resu lt Performing Organization Address [facility] Co de Phone Number [facility] [address] * (ABNORMAL) POC Glucose Monitoring Device (10/27/2024 1:50 AM EDT) POC Glucose Monitoring Device 121(H) 70 - 100 mg/dL 10/27/2024 1:51 AM EDT [facility] Blood 10/27/2024 1:50 AM EDT 10/27/2024 1:51 AM EDT us Semaj Mcnair III, MD POINT OF CARE TEST ORDERABLES Final Result Performing Organization Address [facility] de Phone Number [facility] [address] * Transfuse Cryoprecipitate Transfusion Rate: Per dept routine (10/27/2024 1:25 AM EDT) John Pina MD NURSING TREATMENT ORDERABLES - BLOOD ADMIN Final Result Performing Organization Address [facility] Co de Phone Number EXTERNAL * Transfuse Cryoprecipitate Transfusion Rate: Per dept routine, 1 Units (10/27/2024 1:25 AM EDT) John Pina MD NURSING TREATMENT ORDERABLES - BLOOD ADMIN Final Result Performing Organization Address [facility] de Phone Number EXTERNAL * (ABNORMAL) POC Glucose Monitoring Device (10/27/2024 1:21 AM EDT) POC Glucose Monitoring Device 123(H) 70 - 100 mg/dL 10/27/2024 1:22 AM EDT [facility] Blood 10/27/2024 1:21 AM EDT 10/27/2024 1:21 AM EDT Result [facility] Semaj Mcnair III, MD POINT OF CARE TEST ORDERABLES Final Result Performing Organization Address City/[facility] Co de Phone Number [facility] [address] * Transfuse Fresh Frozen Plasma Transfusion Rate: Per dept routine (10/27/2024 1:03 AM EDT) John Pina MD NURSING TREATMENT ORDERABLES - BLOOD ADMIN Final Result Performing Organization Address [facility] Co de Phone Number EXTERNAL * Transfuse Fresh Frozen Plasma Transfusion Rate: Per dept routine, 1 Units (10/27/2024 1:03 AM EDT) us John Pina MD NURSING TREATMENT ORDERABLES - BLOOD ADMIN Final Result Performing Organization Address [facility] de Phone Number EXTERNAL * Calcium Free, Serum (10/27/2024 12:13 AM EDT) Free Calcium, Ser 5.20 4.40 - 5.40 mg/dL 10/27/2024 12:37 AM EDT [facility] Comment:Free calcium levels vary inversely with pH by approximately 5% for each 0.1 unit of pH change. Assay results have been normalized to pH = 7.40. Serum 10/27/2024 12:1 3 AM EDT 10/27/2024 12:29 AM EDT Narrative [facility] - 10/27/2024 12:37 AM EDT This test has been developed and its performance characteristics determined by [facility] which is certified under [...] ORDERABLES Final Resu lt Performing Organization Address City/State/[facility] Co de Phone Number [facility] [address] [place] [id number], [facility] * (ABNORMAL) Blood Gas, Arterial, STAT (10/27/2024 12:13 AM EDT) O2 Sat, Arterial 100 10/27/2024 12:23 AM EDT [facility] FIO2 30 10/27/2024 12:23 AM EDT [facility] pH, Arterial 7.32(L) 7.35 - 7.45 10/27/2024 12:23 AM EDT [facility] pCO2, Arterial 37 35 - 45 mm Hg 10/27/2024 12:23 AM EDT [facility] pO2, Arterial 137(H) 80 - 100 mm Hg 10/27/2024 12:23 AM EDT [facility] HCO3, Arterial 20(L) 22 - 26 mmol/L 10/27/2024 12:23 AM EDT [facility] CO2 Content,Arteri al 20(L) 23 - 27 mmol/L 10/27/2024 12:23 AM EDT [facility] Base Excess, Arterial -6.4(L) -2.0 - 3.0 mmol/L 10/27/2024 12:23 AM EDT [facility] %HBO2, Arterial 96.2 95.0 - 98.0 % 10/27/2024 12:23 AM EDT [facility] Carboxyhemoglo bin, Arterial 1.9 % 10/27/2024 12:23 AM EDT [facility] Comment: CARBOXYHEMOGLOBIN (CO) REFERENCE RANGES: Non-Smokers: <2 % Smokers: <8 % TOXIC: >20 % Methemoglobin, Arterial 1.5 0.0 - 1.5 % 10/27/2024 12:23 AM EDT [facility] Reduced hemoglobin, Arterial 0.4 0.0 - 5.0 % 10/27/2024 12:23 AM EDT [facility] Blood, Arterial 10/27/2024 1 2:13 AM EDT 10/27/2024 12:18 AM EDT John Pina MD LAB BLOOD ORDERABLES Final Resu lt [facility] [address] [employer] [facility]. [address] * (ABNORMAL) TEG-Bypass/ECMO/Liver HN (Factor function, Platelet/Fibrin Clot Strength w/Clot Breakdown, Heparinase In All Channels) (10/27/2024 12:13 AM EDT) Citrated Kaolin Reaction Time (TEGECMOLIVER) 9.1 4.6 - 9.1 minutes 10/27/2024 1:43 AM EDT [facility] Citrated Kaolin W/Heparinase Reaction Time (TEGECMOLIVER) 9.7(H) 4.3 - 8.3 minutes 10/27/2024 1:43 AM EDT [facility] Citrated Kaolin Maximum Amplitude (TEGECMOLIVER) <40.0(L) 52.0 - 69.0 mm 10/27/2024 1:43 AM EDT [facility] Citrated Functional Fibrinogen W/Heparinase Maximum Amplitude(TEGEC MOLIVER) 11.9(L) 15.0 - 34.0 mm 10/27/2024 1:43 AM EDT [facility] Citrated Rapid Teg W/Heparinase Maximum Amplitude (TEGECMOLIVER) 31.6(L) 53.0 - 69.0 mm 10/27/2024 1:43 AM EDT [facility] Citrated Kaolin w/Heparinase Percent Lysis (TEGECMOLIVER) 0.0 0.0 - 3.2 % 10/27/2024 1:43 AM EDT [facility] Whole Blood (Citrate) 10/27/2024 12:13 AM EDT 10/27/2024 12:18 AM EDT us Kemar Sahni MD LAB BLOOD ORDERABLES Final Result [facility] [address] * (ABNORMAL) Lactic Acid (10/27/2024 12:13 AM EDT) Lactate 0.2(L) 0.5 - 2.2 mmol/L 10/27/2024 12:59 AM EDT [facility] Plasma 10/27/2024 12:1 3 AM EDT 10/27/2024 12:31 AM EDT Kemar Sahni MD LAB BLOOD ORDERABLES Final Result [facility] [address] * Magnesium (10/27/2024 12:13 AM EDT) Magnesium 1.8 1.5 - 2.5 mg/dL 10/27/2024 12:52 AM EDT [facility] Plasma 10/27/2024 12:1 3 AM EDT 10/27/2024 12:29 AM EDT Kemar Sahni MD LAB BLOOD ORDERABLES Final Result Performing Organization Address [facility] Co de Phone Number [facility] [address] * (ABNORMAL) Hepatic Function Panel (10/27/2024 12:13 AM EDT) Total Bilirubin 1.6(H) 0.0 - 1.5 mg/dL 10/27/2024 12:52 AM EDT [facility] Bilirubin, Direct 1.17(H) 0.00 - 0.40 mg/dL 10/27/2024 12:52 AM EDT [facility] AST 157(H) 13 - 39 U/L 10/27/2024 12:52 AM EDT [facility] ALT 261(H) 7 - 52 U/L 10/27/2024 12:52 AM EDT [facility] Alkaline Phosphatase 26(L) 36 - 125 U/L 10/27/2024 12:52 AM EDT [facility] Total Protein 3.8(L) 6.4 - 8.9 g/dL 10/27/2024 12:52 AM EDT [facility] Albumin 2.8(L) 3.5 - 5.7 g/dL 10/27/2024 12:52 AM EDT [facility] Bilirubin, Indirect 0.43 0.00 - 1.10 mg/dL 10/27/2024 12:52 AM EDT [facility] Plasma 10/27/2024 12:1 3 AM EDT 10/27/2024 12:29 AM EDT Kemar Sahni MD LAB BLOOD ORDERABLES Final Result Performing Organization Address [facility] de Phone Number [facility] [address] [facility]. [address] * (ABNORMAL) Protime-INR (10/27/2024 12:13 AM EDT) Protime 18.6(H) 12.1 - 15.1 seconds 10/27/2024 12:43 AM EDT [facility] INR 1.5(H) 0.9 - 1.1 10/27/2024 12:43 AM EDT [facility] Comment: RECOMMENDED THERAPEUTIC RANGES USING INR : Stable oral anticoagulant therapy: 2.0 - 3.0 Mechanical prosthetic heart valve: 2.5 - 3.5 Recurrent acute myocardial infarction: 2.5 - 3.5 Plasma 10/27/2024 12:1 3 AM EDT 10/27/2024 12:29 AM EDT Kemar Sahni MD LAB BLOOD ORDERABLES Final Result Performing Organization Address [facility] de Phone Number [facility] [address] [facility]. [address] * (ABNORMAL) CBC (10/27/2024 12:13 AM EDT) WBC 5.0 3.8 - 10.8 10E3/uL 10/27/2024 12:59 AM EDT [facility] RBC 2.70(L) 4.20 - 5.80 10E6/uL 10/27/2024 12:59 AM EDT [facility] Hemoglobin 8.5(L) 13.2 - 17.1 g/dL 10/27/2024 12:59 AM EDT [facility] Hematocrit 23.9(L) 38.5 - 50.0 % 10/27/2024 12:59 AM EDT [facility] MCV 88.5 80.0 - 100.0 fL 10/27/2024 12:59 AM EDT [facility] MCH 31.5 27.0 - 33.0 pg 10/27/2024 12:59 AM EDT [facility] MCHC 35.6 32.0 - 36.0 g/dL 10/27/2024 12:59 AM EDT [facility] RDW 20.6(H) 11.0 - 15.0 % 10/27/2024 12:59 AM EDT [facility] Platelets 35(L) 140 - 400 10E3/uL 10/27/2024 12:59 AM EDT [facility] Comment: CNV Specimen checked for clots. None detected. MPV 7.6 7.5 - 11.5 fL 10/27/2024 12:59 AM EDT [facility] Whole Blood 10/27/2024 12:1 3 AM EDT 10/27/2024 12:29 AM EDT Kemar Sahni MD LAB BLOOD ORDERABLES Final Result [facility] [address] * (ABNORMAL) Renal Function Panel w/EGFR (10/27/2024 12:13 AM EDT) Sodium 141 133 - 146 mmol/L 10/27/2024 12:52 AM EDT [facility] Potassium 3.2(L) 3.5 - 5.3 mmol/L 10/27/2024 12:52 AM EDT [facility] Chloride 109 98 - 110 mmol/L 10/27/2024 12:52 AM EDT [facility] CO2 21 21 - 33 mmol/L 10/27/2024 12:52 AM EDT [facility] Anion Gap 11 3 - 16 mmol/L 10/27/2024 12:52 AM EDT [facility] BUN 64(H) 7 - 25 mg/dL 10/27/2024 12:52 AM EDT [facility] Creatinine 2.58(H) 0.60 - 1.30 mg/dL 10/27/2024 12:52 AM EDT [facility] Glucose 126(H) 70 - 100 mg/dL 10/27/2024 12:52 AM EDT [facility] Calcium 8.9 8.6 - 10.3 mg/dL 10/27/2024 12:52 AM EDT [facility] Phosphorus 5.3(H) 2.1 - 4.7 mg/dL 10/27/2024 12:52 AM EDT [facility] Albumin 2.8(L) 3.5 - 5.7 g/dL 10/27/2024 12:52 AM EDT [facility] Osmolality, Calculated 312(H) 278 - 305 mOsm/kg 10/27/2024 12:52 AM EDT [facility] EGFR 31 10/27/2024 12:52 AM EDT [facility] Comment:As of 2021, the [...] Sahni MD LAB BLOOD ORDERABLES Final Result [facility] [address] * (ABNORMAL) POC Glucose Monitoring Device (10/27/2024 12:08 AM EDT) POC Glucose Monitoring Device 121(H) 70 - 100 mg/dL 10/27/2024 12:08 AM EDT [facility] Blood 10/27/2024 12:0 8 AM EDT 10/27/2024 12:08 AM EDT Semaj Mcnair III, MD POINT OF CARE TEST ORDERABLES Final Result Performing Organization Address [facility] Co de Phone Number [facility] [address] [place] [address]. [address] * (ABNORMAL) POC Glucose Monitoring Device (10/26/2024 11:15 PM EDT) POC Glucose Monitoring Device 120(H) 70 - 100 mg/dL 10/26/2024 11:15 PM EDT [facility] Blood 10/26/2024 11:1 5 PM EDT 10/26/2024 11:15 PM EDT Semaj Mcnair III, MD POINT OF CARE TEST ORDERABLES Final Result Performing Organization Address [facility] de Phone Number [facility] [address] [place] [address] * (ABNORMAL) TEG-Bypass/ECMO/Liver HN (Factor function, Platelet/Fibrin Clot Strength w/Clot Breakdown, Heparinase In All Channels) (10/26/2024 10:36 PM EDT) Citrated Kaolin Reaction Time (TEGECMOLIVER) 10.0(H) 4.6 - 9.1 minutes 10/26/2024 11:53 PM EDT [facility] Citrated Kaolin W/Heparinase Reaction Time (TEGECMOLIVER) 10.2(H) 4.3 - 8.3 minutes 10/26/2024 11:53 PM EDT [facility] Citrated Kaolin Maximum Amplitude (TEGECMOLIVER) <40.0(L) 52.0 - 69.0 mm 10/26/2024 11:53 PM EDT [facility] Citrated Functional Fibrinogen W/Heparinase Maximum Amplitude(TEGEC MOLIVER) 11.3(L) 15.0 - 34.0 mm 10/26/2024 11:53 PM EDT [facility] Citrated Rapid Teg W/Heparinase Maximum Amplitude (TEGECMOLIVER) 41.8(L) 53.0 - 69.0 mm 10/26/2024 11:53 PM EDT [facility] Citrated Kaolin w/Heparinase Percent Lysis (TEGECMOLIVER) 0.0 0.0 - 3.2 % 10/26/2024 11:53 PM EDT [facility] Whole Blood (Citrate) 10/26/2024 10:36 PM EDT 10/26/2024 10:43 PM EDT Kemar Sahni MD LAB BLOOD ORDERABLES Final Result Performing Organization Address [facility]/ZIP Co de Phone Number [facility] [address] * (ABNORMAL) POC Glucose Monitoring Device (10/26/2024 10:14 PM EDT) POC Glucose Monitoring Device 124(H) 70 - 100 mg/dL 10/26/2024 11:11 PM EDT [facility] Blood 10/26/2024 10:1 4 PM EDT 10/26/2024 11:11 PM EDT Semaj Mcnair III, MD POINT OF CARE TEST ORDERABLES Final Result [facility] [address] * (ABNORMAL) POC Glucose Monitoring Device (10/26/2024 9:16 PM EDT) POC Glucose Monitoring Device 119(H) 70 - 100 mg/dL 10/26/2024 9:18 PM EDT [facility] Blood 10/26/2024 9:16 PM EDT 10/26/2024 9:18 PM EDT us Semaj Mcnair III, MD POINT OF CARE TEST ORDERABLES Final Result Performing Organization Address [facility] Co de Phone Number [facility] [address] * (ABNORMAL) POC Glucose Monitoring Device (10/26/2024 8:05 PM EDT) POC Glucose Monitoring Device 113(H) 70 - 100 mg/dL 10/26/2024 8:06 PM EDT [facility] Blood 10/26/2024 8:05 PM EDT 10/26/2024 8:06 PM EDT us Semaj Mcnair III, MD POINT OF CARE TEST ORDERABLES Final Result Performing Organization Address [facility] Co de Phone Number [facility] [address] * (ABNORMAL) POC Glucose Monitoring Device (10/26/2024 7:02 PM EDT) POC Glucose Monitoring Device 111(H) 70 - 100 mg/dL 10/26/2024 7:03 PM EDT [facility] Blood 10/26/2024 7:02 PM EDT 10/26/2024 7:03 PM EDT us Semaj Mcnair III, MD POINT OF CARE TEST ORDERABLES Final Result Performing Organization Address [facility] Co de Phone Number [facility] [address] * Transfuse Cryoprecipitate Transfusion Rate: Per [...] BLOOD ADMIN Final Result EXTERNAL * (ABNORMAL) POC Glucose Monitoring Device (10/26/2024 6:33 PM EDT) POC Glucose Monitoring Device 110(H) 70 - 100 mg/dL 10/26/2024 6:34 PM EDT [facility] Blood 10/26/2024 6:33 PM EDT 10/26/2024 6:34 PM EDT us Semaj Mcnair III, MD POINT OF CARE TEST ORDERABLES Final Result Performing Organization Address [facility]/ZIP Co de Phone Number [facility] [address] [facility]. [address] * Transfuse Cryoprecipitate Transfusion Rate: Per [...] Organization Address City/[facility] Co de Phone Number EXTERNAL * (ABNORMAL) POC Glucose Monitoring Device (10/26/2024 6:17 PM EDT) POC Glucose Monitoring Device 104(H) 70 - 100 mg/dL 10/26/2024 6:18 PM EDT [facility] Blood 10/26/2024 6:17 PM EDT 10/26/2024 6:18 PM EDT us Semaj Mcnair III, MD POINT OF CARE TEST ORDERABLES Final Result Performing Organization Address City/[facility]/ZIP Co de Phone Number [facility] [address] [facility]. [address] * (ABNORMAL) POC Glucose Monitoring Device (10/26/2024 4:58 PM EDT) POC Glucose Monitoring Device 115(H) 70 - 100 mg/dL 10/26/2024 4:59 PM EDT [facility] Blood 10/26/2024 4:58 PM EDT 10/26/2024 4:58 PM EDT Semaj Mcnair III, MD POINT OF CARE TEST ORDERABLES Final Result Performing Organization Address [facility] Co de Phone Number [facility] [address] * (ABNORMAL) Calcium Free, Serum (10/26/2024 4:42 PM EDT) Pathologist [facility] Free Calcium, Ser 5.67(H) 4.40 - 5.40 mg/dL 10/26/2024 4:55 PM EDT [facility] Comment:Free calcium levels vary inversely with pH by approximately 5% for each 0.1 unit of pH change. Assay results have been normalized to pH = 7.40. Serum 10/26/2024 4:42 PM EDT 10/26/2024 4:47 PM EDT Narrative [facility] - 10/26/2024 4:55 PM EDT This test has been developed and its performance characteristics determined by [facility] which is certified under [...] Resu lt Performing Organization Address [facility] Co de Phone Number [facility] [address] [facility]. [address] * Repeat Crossmatch (Recipient Sample) (10/26/2024 4:42 PM EDT) Pathologist [facility] Repeat Cx - Recipient The request and specimen(s) for this test have been received and transported to the [facility] at [address] [place] [address]. The [facility] will report results directly to the client. 10/26/2024 4:49 PM EDT [facility] Whole Blood 10/26/2024 4:42 PM EDT 10/26/2024 4:49 PM EDT Narrative [facility] - 10/26/2024 4:49 PM EDT To be sent to [facility] for Donor UNOS#[id number] cross match with Blair Gilbert Sveta Judge MD LAB BLOOD ORDERABLES Final Resu lt [facility] [address] * (ABNORMAL) Lactic Acid (10/26/2024 4:42 PM EDT) Pathologist [facility] Lactate 0.3(L) 0.5 - 2.2 mmol/L 10/26/2024 5:19 PM EDT [facility] Plasma 10/26/2024 4:42 PM EDT 10/26/2024 4:47 PM EDT Kemar Sahni MD LAB BLOOD ORDERABLES Final Result [facility] [address] * Magnesium (10/26/2024 4:42 PM EDT) Pathologist [facility] Magnesium 2.0 1.5 - 2.5 mg/dL 10/26/2024 5:24 PM EDT [facility] Plasma 10/26/2024 4:42 PM EDT 10/26/2024 4:47 PM EDT Kemar Sahni MD LAB BLOOD ORDERABLES Final Result [facility] [address] [employer] [place] [address], [facility] * (ABNORMAL) Hepatic Function Panel (10/26/2024 4:42 PM EDT) Total Bilirubin 2.3(H) 0.0 - 1.5 mg/dL 10/26/2024 5:24 PM EDT [facility] Bilirubin, Direct 1.85(H) 0.00 - 0.40 mg/dL 10/26/2024 5:24 PM EDT [facility] AST 374(H) 13 - 39 U/L 10/26/2024 5:24 PM EDT [facility] ALT 458(H) 7 - 52 U/L 10/26/2024 5:24 PM EDT [facility] Alkaline Phosphatase 39 36 - 125 U/L 10/26/2024 5:24 PM EDT [facility] Total Protein 3.8(L) 6.4 - 8.9 g/dL 10/26/2024 5:24 PM EDT [facility] Albumin 3.0(L) 3.5 - 5.7 g/dL 10/26/2024 5:24 PM EDT [facility] Bilirubin, Indirect 0.45 0.00 - 1.10 mg/dL 10/26/2024 5:24 PM EDT [facility] Plasma 10/26/2024 4:42 PM EDT 10/26/2024 4:47 PM EDT Kemar Sahni MD LAB BLOOD ORDERABLES Final Result Performing Organization Address [facility]/State/ZIP Co de Phone Number [facility] [address] [employer] [facility] [place], [place] [address] [place] [address] * (ABNORMAL) Protime-INR (10/26/2024 4:42 PM EDT) Protime 20.3(H) 12.1 - 15.1 seconds 10/26/2024 5:12 PM EDT [facility] INR 1.7(H) 0.9 - 1.1 10/26/2024 5:12 PM EDT [facility] Comment: RECOMMENDED THERAPEUTIC RANGES USING INR : Stable oral anticoagulant therapy: 2.0 - 3.0 Mechanical prosthetic heart valve: 2.5 - 3.5 Recurrent acute myocardial infarction: 2.5 - 3.5 Plasma 10/26/2024 4:42 PM EDT 10/26/2024 4:47 PM EDT Kemar Sahni MD LAB BLOOD ORDERABLES Final Result Performing Organization Address City/State/[facility] Co de Phone Number [facility] [address] [place], [place] [address] * (ABNORMAL) CBC (10/26/2024 4:42 PM EDT) WBC 10.0 3.8 - 10.8 10E3/uL 10/26/2024 5:00 PM EDT [facility] RBC 3.44(L) 4.20 - 5.80 10E6/uL 10/26/2024 5:00 PM EDT [facility] Hemoglobin 10.5(L) 13.2 - 17.1 g/dL 10/26/2024 5:00 PM EDT [facility] Hematocrit 30.2(L) 38.5 - 50.0 % 10/26/2024 5:00 PM EDT [facility] MCV 87.7 80.0 - 100.0 fL 10/26/2024 5:00 PM EDT [facility] MCH 30.6 27.0 - 33.0 pg 10/26/2024 5:00 PM EDT [facility] MCHC 34.8 32.0 - 36.0 g/dL 10/26/2024 5:00 PM EDT [facility] RDW 20.1(H) 11.0 - 15.0 % 10/26/2024 5:00 PM EDT [facility] Platelets 48(L) 140 - 400 10E3/uL 10/26/2024 5:00 PM EDT [facility] Comment:Specimen checked for clots. None detected. MPV 7.9 7.5 - 11.5 fL 10/26/2024 5:00 PM EDT [facility] Whole Blood 10/26/2024 4:42 PM EDT 10/26/2024 4:47 PM EDT us Kemar Sahni MD LAB BLOOD ORDERABLES Final Result [facility] [address] [place] [address], [facility] * (ABNORMAL) Renal Function Panel w/EGFR (10/26/2024 4:42 PM EDT) Sodium 142 133 - 146 mmol/L 10/26/2024 5:24 PM EDT [facility] Potassium 3.3(L) 3.5 - 5.3 mmol/L 10/26/2024 5:24 PM EDT [facility] Chloride 109 98 - 110 mmol/L 10/26/2024 5:24 PM EDT [facility] CO2 23 21 - 33 mmol/L 10/26/2024 5:24 PM EDT [facility] Anion Gap 10 3 - 16 mmol/L 10/26/2024 5:24 PM EDT [facility] BUN 63(H) 7 - 25 mg/dL 10/26/2024 5:24 PM EDT [facility] Creatinine 2.85(H) 0.60 - 1.30 mg/dL 10/26/2024 5:24 PM EDT [facility] Glucose 127(H) 70 - 100 mg/dL 10/26/2024 5:24 PM EDT [facility] Calcium 8.9 8.6 - 10.3 mg/dL 10/26/2024 5:24 PM EDT [facility] Phosphorus 4.4 2.1 - 4.7 mg/dL 10/26/2024 5:24 PM EDT [facility] Albumin 3.0(L) 3.5 - 5.7 g/dL 10/26/2024 5:24 PM EDT [facility] Osmolality, Calculated 314(H) 278 - 305 mOsm/kg 10/26/2024 5:24 PM EDT [facility] EGFR 28 10/26/2024 5:24 PM EDT [facility] Comment:As of 2021, the [...] Final Result Performing Organization Address [facility] Co de Phone Number [facility] [address] [place] [address] * (ABNORMAL) POC Glucose Monitoring Device (10/26/2024 3:54 PM EDT) POC Glucose Monitoring Device 126(H) 70 - 100 mg/dL 10/26/2024 3:55 PM EDT [facility] Blood 10/26/2024 3:54 PM EDT 10/26/2024 3:55 PM EDT Result [facility] Semaj Mcnair III, MD POINT OF CARE TEST ORDERABLES Final Result Performing Organization Address [facility]/ZIP Co de Phone Number [facility] [address] [place] [address]. [address] * (ABNORMAL) POC Glucose Monitoring Device (10/26/2024 3:06 PM EDT) POC Glucose Monitoring Device 144(H) 70 - 100 mg/dL 10/26/2024 3:14 PM EDT [facility] Blood 10/26/2024 3:06 PM EDT 10/26/2024 3:13 PM EDT Semaj Mcnair III, MD POINT OF CARE TEST ORDERABLES Final Result Performing Organization Address City/[facility]/ZIP Co de Phone Number [facility] [address] * (ABNORMAL) TEG-Bypass/ECMO/Liver HN (Factor function, Platelet/Fibrin Clot Strength w/Clot Breakdown, Heparinase In All Channels) (10/26/2024 3:03 PM EDT) [facility] Citrated Kaolin Reaction Time (TEGECMOLIVER) 8.2 4.6 - 9.1 minutes 10/26/2024 4:43 PM EDT [facility] Citrated Kaolin W/Heparinase Reaction Time (TEGECMOLIVER) 8.2 4.3 - 8.3 minutes 10/26/2024 4:43 PM EDT [facility] Citrated Kaolin Maximum Amplitude (TEGECMOLIVER) 41.7(L) 52.0 - 69.0 mm 10/26/2024 4:43 PM EDT [facility] Citrated Functional Fibrinogen W/Heparinase Maximum Amplitude(TEGEC MOLIVER) 11.4(L) 15.0 - 34.0 mm 10/26/2024 4:43 PM EDT [facility] Citrated Rapid Teg W/Heparinase Maximum Amplitude (TEGECMOLIVER) 38.6(L) 53.0 - 69.0 mm 10/26/2024 4:43 PM EDT [facility] Citrated Kaolin w/Heparinase Percent Lysis (TEGECMOLIVER) 0.0 0.0 - 3.2 % 10/26/2024 4:43 PM EDT [facility] Whole Blood (Citrate) 10/26/2024 3:03 PM EDT 10/26/2024 3:10 PM EDT Jani Mooney MD LAB BLOOD ORDERABLES Final Resul t [facility] [address] [employer] [facility]. [address] * ECG 12 lead (MUSE) (10/26/2024 2:19 PM EDT) 10/26/2024 2:19 PM EDT Narrative MUSE - 10/27/2024 10:09 AM EDT Ventricular Rate: 105 BPM Atrial Rate: 105 BPM P-R Interval: 128 ms QRS Duration: 94 ms QT: 474 ms QTc: 626 ms R [place]: -37 degrees T [place]: 35 degrees Diagnosis Line: Critical Test Result: [...] - 100 mg/dL 10/26/2024 2:01 PM EDT [facility] Blood 10/26/2024 2:00 PM EDT 10/26/2024 2:01 PM EDT Semaj Mcnair III, MD POINT OF CARE TEST ORDERABLES Final Result Performing Organization Address [facility] de Phone Number [facility] [address] * (ABNORMAL) POC Glucose Monitoring Device (10/26/2024 1:05 PM EDT) POC Glucose Monitoring Device 212(H) 70 - 100 mg/dL 10/26/2024 1:06 PM EDT [facility] Blood 10/26/2024 1:05 PM EDT 10/26/2024 1:06 PM EDT Semaj Mcnair III, MD POINT OF CARE TEST ORDERABLES Final Result Performing Organization Address [facility] Co de Phone Number [facility] [address] * Transfuse Cryoprecipitate Has consent been obtained? Yes; Transfusion Rate: Per dept routine (10/26/2024 12:25 PM EDT) Shay Sifuentes MD NURSING TREATMENT ORDERABLES - BLOOD ADMIN Final Result Performing Organization Address [facility] de Phone Number EXTERNAL * Transfuse Cryoprecipitate Has consent been obtained? Yes; Transfusion Rate: Per dept routine, 1 Units (10/26/2024 12:25 PM EDT) Shay Sifuentes MD NURSING TREATMENT ORDERABLES - BLOOD ADMIN Final Result Performing Organization Address [facility] de Phone Number EXTERNAL * (ABNORMAL) POC Glucose Monitoring Device (10/26/2024 12:06 PM EDT) POC Glucose Monitoring Device 226(H) 70 - 100 mg/dL 10/26/2024 12:07 PM EDT [facility] Blood 10/26/2024 12:0 6 PM EDT 10/26/2024 12:07 PM EDT Semaj Mcnair III, MD POINT OF CARE TEST ORDERABLES Final Result Performing Organization Address [facility] de Phone Number [facility] [address] * Transfuse Cryoprecipitate Transfusion Rate: Per dept routine (10/26/2024 12:01 PM EDT) John Pina MD NURSING TREATMENT ORDERABLES - BLOOD ADMIN Final Result Performing Organization Address [facility] de Phone Number EXTERNAL * Transfuse Cryoprecipitate Transfusion Rate: Per dept routine, 1 Units (10/26/2024 12:01 PM EDT) John Pina MD NURSING TREATMENT ORDERABLES - BLOOD ADMIN Final Result Performing Organization Address [facility] de Phone Number EXTERNAL * Lactic Acid (10/26/2024 10:48 AM EDT) Lactate 1.2 0.5 - 2.2 mmol/L 10/26/2024 11:27 AM EDT [facility] Plasma 10/26/2024 10:4 8 AM EDT 10/26/2024 10:53 AM EDT Kemar Sahni MD LAB BLOOD ORDERABLES Final Result [facility] [address] * Magnesium (10/26/2024 10:48 AM EDT) Magnesium 2.0 1.5 - 2.5 mg/dL 10/26/2024 11:26 AM EDT [facility] Plasma 10/26/2024 10:4 8 AM EDT 10/26/2024 10:53 AM EDT Kemar Sahni MD LAB BLOOD ORDERABLES Final Result Performing Organization Address [facility] Co de Phone Number [facility] [address] * (ABNORMAL) Hepatic Function Panel (10/26/2024 10:48 AM EDT) Total Bilirubin 5.9(H) 0.0 - 1.5 mg/dL 10/26/2024 11:26 AM EDT [facility] Bilirubin, Direct 4.74(H) 0.00 - 0.40 mg/dL 10/26/2024 11:26 AM EDT [facility] AST 872(H) 13 - 39 U/L 10/26/2024 11:26 AM EDT [facility] ALT 736(H) 7 - 52 U/L 10/26/2024 11:26 AM EDT [facility] Alkaline Phosphatase 56 36 - 125 U/L 10/26/2024 11:26 AM EDT [facility] Total Protein 3.5(L) 6.4 - 8.9 g/dL 10/26/2024 11:26 AM EDT [facility] Albumin 2.5(L) 3.5 - 5.7 g/dL 10/26/2024 11:26 AM EDT [facility] Bilirubin, Indirect 1.16(H) 0.00 - 1.10 mg/dL 10/26/2024 11:26 AM EDT [facility] Plasma 10/26/2024 10:4 8 AM EDT 10/26/2024 10:53 AM EDT Kemar Sahni MD LAB BLOOD ORDERABLES Final Result Performing Organization Address [facility] Co de Phone Number [facility] [address] [facility]. [address] * (ABNORMAL) Protime-INR (10/26/2024 10:48 AM EDT) Protime 23.0(H) 12.1 - 15.1 seconds 10/26/2024 11:26 AM EDT [facility] INR 2.0(H) 0.9 - 1.1 10/26/2024 11:26 AM EDT [facility] Comment: RECOMMENDED THERAPEUTIC RANGES USING INR : Stable oral anticoagulant therapy: 2.0 - 3.0 Mechanical prosthetic heart valve: 2.5 - 3.5 Recurrent acute myocardial infarction: 2.5 - 3.5 Plasma 10/26/2024 10:4 8 AM EDT 10/26/2024 10:53 AM EDT Kemar Sahni MD LAB BLOOD ORDERABLES Final Result Performing Organization Address [facility] Co de Phone Number [facility] [address] [facility]. [address] * (ABNORMAL) CBC (10/26/2024 10:48 AM EDT) WBC 17.3(H) 3.8 - 10.8 10E3/uL 10/26/2024 11:14 AM EDT [facility] RBC 4.22 4.20 - 5.80 10E6/uL 10/26/2024 11:14 AM EDT [facility] Hemoglobin 12.8(L) 13.2 - 17.1 g/dL 10/26/2024 11:14 AM EDT [facility] Hematocrit 37.2(L) 38.5 - 50.0 % 10/26/2024 11:14 AM EDT [facility] MCV 88.3 80.0 - 100.0 fL 10/26/2024 11:14 AM EDT [facility] MCH 30.4 27.0 - 33.0 pg 10/26/2024 11:14 AM EDT [facility] MCHC 34.4 32.0 - 36.0 g/dL 10/26/2024 11:14 AM EDT [facility] RDW 20.8(H) 11.0 - 15.0 % 10/26/2024 11:14 AM EDT [facility] Platelets 109(L) 140 - 400 10E3/uL 10/26/2024 11:14 AM EDT [facility] MPV 7.5 7.5 - 11.5 fL 10/26/2024 11:14 AM EDT [facility] Whole Blood 10/26/2024 10:4 8 AM EDT 10/26/2024 10:53 AM EDT Kemar Sahni MD LAB BLOOD ORDERABLES Final Result [facility] [address] [id number], [facility] * (ABNORMAL) Blood gas, arterial (10/26/2024 10:48 AM EDT) O2 Sat, Arterial 97 10/26/2024 10:54 AM EDT [facility] FIO2 35% 10/26/2024 10:54 AM EDT [facility] pH, Arterial 7.37 7.35 - 7.45 10/26/2024 10:54 AM EDT [facility] pCO2, Arterial 36 35 - 45 mm Hg 10/26/2024 10:54 AM EDT [facility] pO2, Arterial 91 80 - 100 mm Hg 10/26/2024 10:54 AM EDT [facility] HCO3, Arterial 22 22 - 26 mmol/L 10/26/2024 10:54 AM EDT [facility] CO2 Content,Arteri al 22(L) 23 - 27 mmol/L 10/26/2024 10:54 AM EDT [facility] Base Excess, Arterial -3.9(L) -2.0 - 3.0 mmol/L 10/26/2024 10:54 AM EDT [facility] %HBO2, Arterial 94.8(L) 95.0 - 98.0 % 10/26/2024 10:54 AM EDT [facility] Carboxyhemoglo bin, Arterial 1.9 % 10/26/2024 10:54 AM EDT [facility] Comment: CARBOXYHEMOGLOBIN (CO) REFERENCE RANGES: Non-Smokers: <2 % Smokers: <8 % TOXIC: >20 % Methemoglobin, Arterial 0.7 0.0 - 1.5 % 10/26/2024 10:54 AM EDT [facility] Reduced hemoglobin, Arterial 2.5 0.0 - 5.0 % 10/26/2024 10:54 AM EDT [facility] Blood, Arterial 10/26/2024 1 0:48 AM EDT 10/26/2024 10:52 AM EDT us Shay Sifuentes MD LAB BLOOD ORDERABLES Final Resu lt [facility] [address] * (ABNORMAL) Renal Function Panel w/EGFR (10/26/2024 10:48 AM EDT) Sodium 139 133 - 146 mmol/L 10/26/2024 11:26 AM EDT [facility] Potassium 2.9(LL) 3.5 - 5.3 mmol/L 10/26/2024 11:26 AM EDT [facility] Comment:K CRITICAL VALUE WAS PREVIOUSLY CALLED Chloride 107 98 - 110 mmol/L 10/26/2024 11:26 AM EDT [facility] CO2 22 21 - 33 mmol/L 10/26/2024 11:26 AM EDT [facility] Anion Gap 10 3 - 16 mmol/L 10/26/2024 11:26 AM EDT [facility] BUN 61(H) 7 - 25 mg/dL 10/26/2024 11:26 AM EDT [facility] Creatinine 2.78(H) 0.60 - 1.30 mg/dL 10/26/2024 11:26 AM EDT [facility] Glucose 253(H) 70 - 100 mg/dL 10/26/2024 11:26 AM EDT [facility] Calcium 8.8 8.6 - 10.3 mg/dL 10/26/2024 11:26 AM EDT [facility] Phosphorus 4.1 2.1 - 4.7 mg/dL 10/26/2024 11:26 AM EDT [facility] Albumin 2.5(L) 3.5 - 5.7 g/dL 10/26/2024 11:26 AM EDT [facility] Osmolality, Calculated 314(H) 278 - 305 mOsm/kg 10/26/2024 11:26 AM EDT [facility] EGFR 28 10/26/2024 11:26 AM EDT [facility] Comment:As of 2021, the [...] Sahni MD LAB BLOOD ORDERABLES Final Result [facility] [address] [place], [place] [address] * (ABNORMAL) POC Glucose Monitoring Device (10/26/2024 10:47 AM EDT) POC Glucose Monitoring Device 234(H) 70 - 100 mg/dL 10/26/2024 10:48 AM EDT [facility] Blood 10/26/2024 10:4 7 AM EDT 10/26/2024 10:48 AM EDT us Semaj Mcnair III, MD POINT OF CARE TEST ORDERABLES Final Result Performing Organization Address [facility] Co de Phone Number [facility] [address] [place] [address] * CARISA Rhythm Strip - Scan (10/26/2024 10:45 AM EDT) us Scanning Uchhim SCAN DOCS - NO RESULTS Final Res ult * (ABNORMAL) POC Glucose Monitoring Device (10/26/2024 10:08 AM EDT) POC Glucose Monitoring Device 235(H) 70 - 100 mg/dL 10/26/2024 10:09 AM EDT [facility] Blood 10/26/2024 10:0 8 AM EDT 10/26/2024 10:09 AM EDT us Semaj Mcnair III, MD POINT OF CARE TEST ORDERABLES Final Result Performing Organization Address [facility] Co de Phone Number [facility] [address] [facility]. [address] * (ABNORMAL) POC Glucose Monitoring Device (10/26/2024 8:57 AM EDT) POC Glucose Monitoring Device 232(H) 70 - 100 mg/dL 10/26/2024 8:59 AM EDT [facility] Blood 10/26/2024 8:57 AM EDT 10/26/2024 8:58 AM EDT us Semaj Mcnair III, MD POINT OF CARE TEST ORDERABLES Final Result Performing Organization Address City/[facility]/ZIP Co de Phone Number [facility] [address] [place] [address] * ECG 12 lead (MUSE) (10/26/2024 8:16 AM EDT) 10/26/2024 8:16 AM EDT Narrative MUSE - 10/27/2024 10:09 AM EDT Ventricular Rate: 112 BPM QRS Duration: 96 ms QT: 452 ms QTc: 616 ms R [place]: -41 degrees T [place]: 40 degrees Diagnosis Line: Critical Test Result: Long QTc ^ SINUS TACHYCARDIA OCCASIONAL PREMATURE VENTRICULAR COMPLEXES ^ LEFT AXIS DEVIATION, LEFT ANTERIOR HEMIBLOCK ^ PROLONGED QT ^ ABNORMAL ECG ^ ^ Confirmed by MD HA, [facility] ([id number]) on 10/27/2024 10:09:18 AM us Shay [...] Glucose Monitoring Device (10/26/2024 7:59 AM EDT) [facility] POC Glucose Monitoring Device 229(H) 70 - 100 mg/dL 10/26/2024 8:01 AM EDT [facility] Blood 10/26/2024 7:59 AM EDT 10/26/2024 8:00 AM EDT Semaj Mcnair III, MD POINT OF CARE TEST ORDERABLES Final Result [facility] [address] * (ABNORMAL) TEG-Bypass/ECMO/Liver HN (Factor function, Platelet/Fibrin Clot Strength w/Clot Breakdown, Heparinase In All Channels) (10/26/2024 7:59 AM EDT) Citrated Kaolin Reaction Time (TEGECMOLIVER) 8.2 4.6 - 9.1 minutes 10/26/2024 10:36 AM EDT [facility] Citrated Kaolin W/Heparinase Reaction Time (TEGECMOLIVER) 8.1 4.3 - 8.3 minutes 10/26/2024 10:36 AM EDT [facility] Citrated Kaolin Maximum Amplitude (TEGECMOLIVER) 46.8(L) 52.0 - 69.0 mm 10/26/2024 10:36 AM EDT [facility] Citrated Functional Fibrinogen W/Heparinase Maximum Amplitude(TEGEC MOLIVER) 10.5(L) 15.0 - 34.0 mm 10/26/2024 10:36 AM EDT [facility] Citrated Rapid Teg W/Heparinase Maximum Amplitude (TEGECMOLIVER) 45.5(L) 53.0 - 69.0 mm 10/26/2024 10:36 AM EDT [facility] Citrated Kaolin w/Heparinase Percent Lysis (TEGECMOLIVER) 0.0 0.0 - 3.2 % 10/26/2024 10:36 AM EDT [facility] Whole Blood (Citrate) 10/26/2024 7:59 AM EDT 10/26/2024 8:05 AM EDT Shay Sifuentes MD LAB BLOOD ORDERABLES Final Resu lt Performing Organization Address [facility] Co de Phone Number [facility] [address] [facility]. [address] * (ABNORMAL) POC Glucose Monitoring Device (10/26/2024 6:12 AM EDT) POC Glucose Monitoring Device 196(H) 70 - 100 mg/dL 10/26/2024 6:13 AM EDT [facility] Blood 10/26/2024 6:12 AM EDT 10/26/2024 6:13 AM EDT Semaj Mcnair III, MD POINT OF CARE TEST ORDERABLES Final Result Performing Organization Address City/[facility] Co de Phone Number [facility] [address] [place] [address] * Lactic Acid (10/26/2024 6:10 AM EDT) Lactate 1.2 0.5 - 2.2 mmol/L 10/26/2024 6:39 AM EDT [facility] Plasma 10/26/2024 6:10 AM EDT 10/26/2024 6:19 AM EDT us Sveta Judge MD LAB BLOOD ORDERABLES Final Resu lt [facility] [address] * (ABNORMAL) Fibrinogen (10/26/2024 6:10 AM EDT) Fibrinogen 160(L) 218 - 406 mg/dL 10/26/2024 6:41 AM EDT [facility] Plasma 10/26/2024 6:10 AM EDT 10/26/2024 6:26 AM EDT Sveta Judge MD LAB BLOOD ORDERABLES Final Resu lt Performing Organization Address [facility] Co de Phone Number [facility] [address] * (ABNORMAL) Protime-INR (10/26/2024 6:10 AM EDT) Protime 25.0(H) 12.1 - 15.1 seconds 10/26/2024 6:41 AM EDT [facility] INR 2.2(H) 0.9 - 1.1 10/26/2024 6:41 AM EDT [facility] Comment: RECOMMENDED THERAPEUTIC RANGES USING INR : Stable oral anticoagulant therapy: 2.0 - 3.0 Mechanical prosthetic heart valve: 2.5 - 3.5 Recurrent acute myocardial infarction: 2.5 - 3.5 Plasma 10/26/2024 6:10 AM EDT 10/26/2024 6:26 AM EDT Sveta Judge MD LAB BLOOD ORDERABLES Final Resu lt Performing Organization Address [facility] Co de Phone Number [facility] [address] [facility]. [address] * (ABNORMAL) Blood gas, arterial (10/26/2024 6:10 AM EDT) O2 Sat, Arterial 98 10/26/2024 6:23 AM EDT [facility] FIO2 60 10/26/2024 6:23 AM EDT [facility] pH, Arterial 7.27(L) 7.35 - 7.45 10/26/2024 6:23 AM EDT [facility] pCO2, Arterial 47(H) 35 - 45 mm Hg 10/26/2024 6:23 AM EDT [facility] pO2, Arterial 127(H) 80 - 100 mm Hg 10/26/2024 6:23 AM EDT [facility] HCO3, Arterial 21(L) 22 - 26 mmol/L 10/26/2024 6:23 AM EDT [facility] CO2 Content,Arteri al 23 23 - 27 mmol/L 10/26/2024 6:23 AM EDT [facility] Base Excess, Arterial -5.4(L) -2.0 - 3.0 mmol/L 10/26/2024 6:23 AM EDT [facility] %HBO2, Arterial 94.6(L) 95.0 - 98.0 % 10/26/2024 6:23 AM EDT [facility] Carboxyhemoglo bin, Arterial 2.0 % 10/26/2024 6:23 AM EDT [facility] Comment: CARBOXYHEMOGLOBIN (CO) REFERENCE RANGES: Non-Smokers: <2 % Smokers: <8 % TOXIC: >20 % Methemoglobin, Arterial 1.6(H) 0.0 - 1.5 % 10/26/2024 6:23 AM EDT [facility] Reduced hemoglobin, Arterial 1.8 0.0 - 5.0 % 10/26/2024 6:23 AM EDT [facility] Blood, Arterial 10/26/2024 6 :10 AM EDT 10/26/2024 6:20 AM EDT us Sveta Judge MD LAB BLOOD ORDERABLES Final Resu lt [facility] [address] [place] [address], [facility] * Magnesium (10/26/2024 6:10 AM EDT) Magnesium 1.5 1.5 - 2.5 mg/dL 10/26/2024 7:09 AM EDT [facility] Plasma 10/26/2024 6:10 AM EDT 10/26/2024 6:23 AM EDT Sveta Judge MD LAB BLOOD ORDERABLES Final Resu lt [facility] [address] * (ABNORMAL) Hepatic Function Panel (10/26/2024 6:10 AM EDT) Total Bilirubin 6.2(H) 0.0 - 1.5 mg/dL 10/26/2024 7:11 AM EDT [facility] Bilirubin, Direct 5.26(H) 0.00 - 0.40 mg/dL 10/26/2024 7:11 AM EDT [facility] AST 1,071(H) 13 - 39 U/L 10/26/2024 7:11 AM EDT [facility] ALT 805(H) 7 - 52 U/L 10/26/2024 7:11 AM EDT [facility] Alkaline Phosphatase 55 36 - 125 U/L 10/26/2024 7:11 AM EDT [facility] Total Protein <3.0(L) 6.4 - 8.9 g/dL 10/26/2024 7:11 AM EDT [facility] Albumin 1.9(L) 3.5 - 5.7 g/dL 10/26/2024 7:11 AM EDT [facility] Bilirubin, Indirect 0.94 0.00 - 1.10 mg/dL 10/26/2024 7:11 AM EDT [facility] Plasma 10/26/2024 6:10 AM EDT 10/26/2024 6:23 AM EDT Sveta Judge MD LAB BLOOD ORDERABLES Final Resu lt [facility] [address] * (ABNORMAL) Renal Function Panel w/EGFR (10/26/2024 6:10 AM EDT) Pathologist [facility] Sodium 141 133 - 146 mmol/L 10/26/2024 7:09 AM EDT [facility] Potassium 2.8(LL) 3.5 - 5.3 mmol/L 10/26/2024 7:09 AM [facility] Comment:Critical value previ ously called. Chloride 106 98 - 110 mmol/L 10/26/2024 7:09 AM EDT [facility] CO2 25 21 - 33 mmol/L 10/26/2024 7:09 [facility] Anion Gap 10 3 - 16 mmol/L 10/26/2024 7:09 AM [facility] BUN 57(H) 7 - 25 mg/dL 10/26/2024 7:09 AM [facility] Creatinine 2.70(H) 0.60 - 1.30 mg/dL 10/26/2024 7:09 AM [facility] Glucose 210(H) 70 - 100 mg/dL 10/26/2024 7:09 AM [facility] Calcium 8.7 8.6 - 10.3 mg/dL 10/26/2024 7:09 AM [facility] Phosphorus 5.4(H) 2.1 - 4.7 mg/dL 10/26/2024 7:09 AM [facility] Albumin 1.9(L) 3.5 - 5.7 g/dL 10/26/2024 7:11 AM [facility] Osmolality, Calculated 314(H) 278 - 305 mOsm/kg 10/26/2024 7:09 AM [facility] EGFR 29 10/26/2024 7:09 AM [facility] Comment:As of 2021, the estimated [...] LAB BLOOD ORDERABLES Final Resu lt [facility] [address] [place] [address], [facility] * (ABNORMAL) CBC (10/26/2024 6:10 AM EDT) WBC 14.8(H) 3.8 - 10.8 10E3/uL 10/26/2024 6:46 AM EDT [facility] RBC 4.04(L) 4.20 - 5.80 10E6/uL 10/26/2024 6:46 AM EDT [facility] Hemoglobin 12.7(L) 13.2 - 17.1 g/dL 10/26/2024 6:46 AM EDT [facility] Hematocrit 35.9(L) 38.5 - 50.0 % 10/26/2024 6:46 AM EDT [facility] MCV 89.0 80.0 - 100.0 fL 10/26/2024 6:46 AM EDT [facility] MCH 31.3 27.0 - 33.0 pg 10/26/2024 6:46 AM EDT [facility] MCHC 35.2 32.0 - 36.0 g/dL 10/26/2024 6:46 AM EDT [facility] RDW 19.7(H) 11.0 - 15.0 % 10/26/2024 6:46 AM EDT [facility] Platelets 107(L) 140 - 400 10E3/uL 10/26/2024 6:46 AM EDT [facility] MPV 7.4(L) 7.5 - 11.5 fL 10/26/2024 6:46 AM EDT [facility] Whole Blood 10/26/2024 6:10 AM EDT 10/26/2024 6:26 AM EDT Sveta Judge MD LAB BLOOD ORDERABLES Final Resu lt Performing Organization Address City/[facility] Co de Phone Number [facility] [address] [employer] [facility]. [address] * (ABNORMAL) POC INR (10/26/2024 5:16 AM EDT) Pathologist [facility] [place] Prothrombin Time INR, POC 2.4(H) 0.8 - 1.4 10/27/2024 6:51 AM EDT [facility] Comment: Test results may vary [...] Final Result Performing Organization Address [facility] Co de Phone Number [facility] [address] [facility]. [address] * POC Sample Type (10/26/2024 5:14 AM EDT) Pathologist [facility] [place] POC Sample Type Arterial 10/26/2024 5:31 AM EDT [facility] Blood, Arterial 10/26/2024 5 :14 AM EDT 10/26/2024 5:31 AM EDT Semaj Mcnair III, MD POINT OF CARE TEST ORDERABLES Final Result Performing Organization Address City/[facility]/ZIP Co de Phone Number [facility] [address] [facility]. [address] * POC Anion Gap (10/26/2024 5:14 AM EDT) Pathologist [facility] [place] POC Anion Gap, Arterial 12 3 - 16 mmol/L 10/26/2024 5:31 AM EDT [facility] Blood, Arterial 10/26/2024 5 :14 AM EDT 10/26/2024 5:31 AM EDT us Semaj Mcnair III, MD POINT OF CARE TEST ORDERABLES Final Result Performing Organization Address City/[facility] Co de Phone Number [facility] [address] [facility]. [address] * POC Chloride (10/26/2024 5:14 AM EDT) POC Chloride 104 98 - 110 mmol/L 10/26/2024 5:31 AM EDT [facility] Blood, Arterial 10/26/2024 5 :14 AM EDT 10/26/2024 5:31 AM EDT us Semaj Mcnair III, MD POINT OF CARE TEST ORDERABLES Final Result Performing Organization Address [facility] Co de Phone Number [facility] [address] [employer] [facility]. [address] * (ABNORMAL) POC Hemoglobin (10/26/2024 5:14 AM EDT) POC Hemoglobin 9.5(L) 14.0 - 18.0 g/dL 10/26/2024 5:31 AM EDT [facility] Blood, Arterial 10/26/2024 5 :14 AM EDT 10/26/2024 5:31 AM EDT Semaj Mcnair III, MD POINT OF CARE TEST ORDERABLES Final Result Performing Organization Address City/[facility] Co de Phone Number [facility] [address] [place] [address]. [address] * (ABNORMAL) POC hematocrit (10/26/2024 5:14 AM EDT) POC Hematocrit 28.0(L) 40 - 52 % 10/26/2024 5:31 AM EDT [facility] Blood, Arterial 10/26/2024 5 :14 AM EDT 10/26/2024 5:31 AM EDT us Semaj Mcnair III, MD POINT OF CARE TEST ORDERABLES Final Result Performing Organization Address City/[facility]/ZIP Co de Phone Number [facility] [address] [facility]. [address] * POC Lactate (10/26/2024 5:14 AM EDT) POC Lactate 1.76 0.50 - 2.20 mmol/L 10/26/2024 5:31 AM EDT [facility] Blood, Arterial 10/26/2024 5 :14 AM EDT 10/26/2024 5:31 AM EDT us Semaj Mcnair III, MD POINT OF CARE TEST ORDERABLES Final Result Performing Organization Address [facility] Hospital/[facility] Co de Phone Number [facility] [address] [employer] [facility]. [address] * (ABNORMAL) POC Glucose (10/26/2024 5:14 AM EDT) POC Glucose, Arterial 183(H) 70 - 100 mg/dL 10/26/2024 5:31 AM EDT [facility] Blood, Arterial 10/26/2024 5 :14 AM EDT 10/26/2024 5:31 AM EDT Semaj Mcnair III, MD POINT OF CARE TEST ORDERABLES Final Result Performing Organization Address City/[facility] Co de Phone Number [facility] [address] [facility]. [address] * (ABNORMAL) POC Ionized Calcium (10/26/2024 5:14 AM EDT) POC Ionized Calcium 5.50(H) 4.50 - 5.30 mg/dL 10/26/2024 5:31 AM EDT [facility] Blood, Arterial 10/26/2024 5 :14 AM EDT 10/26/2024 5:31 AM EDT us Semaj Mcnair III, MD POINT OF CARE TEST ORDERABLES Final Result Performing Organization Address City/[facility]/ZIP Co de Phone Number [facility] [address] [facility]. [address] * (ABNORMAL) POC Potassium (10/26/2024 5:14 AM EDT) POC Potassium 2.8(LL) 3.5 - 5.3 mmol/L 10/26/2024 5:31 AM EDT [facility] Blood, Arterial 10/26/2024 5 :14 AM EDT 10/26/2024 5:31 AM EDT us Semaj Mcnair III, MD POINT OF CARE TEST ORDERABLES Final Result Performing Organization Address [facility] Co de Phone Number [facility] [address] [facility]. [address] * POC Sodium (10/26/2024 5:14 AM EDT) POC Sodium 138 136 - 146 mmol/L 10/26/2024 5:31 AM EDT [facility] Blood, Arterial 10/26/2024 5 :14 AM EDT 10/26/2024 5:31 AM EDT us Semaj Mcnair III, MD POINT OF CARE TEST ORDERABLES Final Result Performing Organization Address City/[facility] Co de Phone Number [facility] [address] [facility]. [address] * POC TCO2 (10/26/2024 5:14 AM EDT) POC TCO2, Arterial 23 23 - 27 mmol/L 10/26/2024 5:31 AM EDT [facility] Blood, Arterial 10/26/2024 5 :14 AM EDT 10/26/2024 5:31 AM EDT us Semaj Mcnair III, MD POINT OF CARE TEST ORDERABLES Final Result [facility] [address]. [address] * (ABNORMAL) POC O2 SAT (10/26/2024 5:14 AM EDT) POC O2 Saturation, Arterial 99(H) 95 - 98 % 10/26/2024 5:31 AM EDT [facility] Blood, Arterial 10/26/2024 5 :14 AM EDT 10/26/2024 5:31 AM EDT Semaj Mcnair III, MD POINT OF CARE TEST ORDERABLES Final Result [facility] [address] * (ABNORMAL) POC Base Excess (10/26/2024 5:14 AM EDT) POC Base Excess, Arterial -5(L) -2 - 3 mmol/L 10/26/2024 5:31 AM EDT [facility] Blood, Arterial 10/26/2024 5 :14 AM EDT 10/26/2024 5:31 AM EDT Semaj Mcnair III, MD POINT OF CARE TEST ORDERABLES Final Result [facility] [address] * POC HCO3 (10/26/2024 5:14 AM EDT) POC HCO3, Arterial 22 22 - 26 mmol/L 10/26/2024 5:31 AM EDT [facility] Blood, Arterial 10/26/2024 5 :14 AM EDT 10/26/2024 5:31 AM EDT Semaj Mcnair III, MD POINT OF CARE TEST ORDERABLES Final Result Performing Organization Address City/[facility] Co de Phone Number [facility] [address] * (ABNORMAL) POC PO2 (10/26/2024 5:14 AM EDT) POC pO2, Arterial 133(H) 80 - 100 mm Hg 10/26/2024 5:31 AM EDT [facility] Blood, Arterial 10/26/2024 5 :14 AM EDT 10/26/2024 5:31 AM EDT Semaj Mcnair III, MD POINT OF CARE TEST ORDERABLES Final Result Performing Organization Address [facility] Co de Phone Number [facility] [address] [employer] [facility]. [address] * POC PCO2 (10/26/2024 5:14 AM EDT) POC pCO2, Arterial 45 35 - 45 mm Hg 10/26/2024 5:31 AM EDT [facility] Blood, Arterial 10/26/2024 5 :14 AM EDT 10/26/2024 5:31 AM EDT Semaj Mcnair III, MD POINT OF CARE TEST ORDERABLES Final Result Performing Organization Address City/State/[facility] Co de Phone Number [facility] [address] * (ABNORMAL) POC pH (10/26/2024 5:14 AM EDT) POC pH, Arterial 7.29(L) 7.35 - 7.45 10/26/2024 5:31 AM EDT [facility] Blood, Arterial 10/26/2024 5 :14 AM EDT 10/26/2024 5:31 AM EDT Semaj Mcnair III, MD POINT OF CARE TEST ORDERABLES Final Result [facility] [address] [employer] [facility]. [address] * Transfuse Cryoprecipitate (10/26/2024 4:37 AM EDT) Eber Quinones MD NURSING TREATMENT ORDERA BLES - BLOOD ADMIN Final Result * Transfuse Cryoprecipitate (10/26/2024 4:37 AM EDT) Eber Quinones MD NURSING TREATMENT ORDERA BLES - BLOOD ADMIN Final Result * (ABNORMAL) POC INR (10/26/2024 4:27 AM EDT) Prothrombin Time INR, POC 2.3(H) 0.8 - 1.4 10/27/2024 6:51 AM EDT [facility] Comment: Test results may vary [...] POINT OF CARE TEST ORDERABLES Final Result [facility] [address] [employer] [facility]. [address] * POC Sample Type (10/26/2024 4:24 AM EDT) POC Sample Type Arterial 10/26/2024 5:09 AM EDT [facility] Blood, Arterial 10/26/2024 4 :24 AM EDT 10/26/2024 5:09 AM EDT Semaj Mcnair III, MD POINT OF CARE TEST ORDERABLES Final Result Performing Organization Address City/[facility]/ZIP Co de Phone Number [facility] [address] * POC Anion Gap (10/26/2024 4:24 AM EDT) POC Anion Gap, Arterial 14 3 - 16 mmol/L 10/26/2024 5:09 AM EDT [facility] Blood, Arterial 10/26/2024 4 :24 AM EDT 10/26/2024 5:09 AM EDT us Semaj Mcnair III, MD POINT OF CARE TEST ORDERABLES Final Result Performing Organization Address [facility] Co de Phone Number [facility] [address] * POC Chloride (10/26/2024 4:24 AM EDT) POC Chloride 103 98 - 110 mmol/L 10/26/2024 5:09 AM EDT [facility] Blood, Arterial 10/26/2024 4 :24 AM EDT 10/26/2024 5:09 AM EDT us Semaj Mcnair III, MD POINT OF CARE TEST ORDERABLES Final Result Performing Organization Address [facility] Co de Phone Number [facility] [address] * (ABNORMAL) POC Hemoglobin (10/26/2024 4:24 AM EDT) POC Hemoglobin 10.3(L) 14.0 - 18.0 g/dL 10/26/2024 5:09 AM EDT [facility] Blood, Arterial 10/26/2024 4 :24 AM EDT 10/26/2024 5:09 AM EDT us Semaj Mcnair III, MD POINT OF CARE TEST ORDERABLES Final Result [facility] [address] * (ABNORMAL) POC hematocrit (10/26/2024 4:24 AM EDT) POC Hematocrit 30.0(L) 40 - 52 % 10/26/2024 5:09 AM EDT [facility] Blood, Arterial 10/26/2024 4 :24 AM EDT 10/26/2024 5:09 AM EDT us Semaj Mcnair III, MD POINT OF CARE TEST ORDERABLES Final Result [facility] [address] * (ABNORMAL) POC Lactate (10/26/2024 4:24 AM EDT) POC Lactate 2.43(H) 0.50 - 2.20 mmol/L 10/26/2024 5:09 AM EDT [facility] Blood, Arterial 10/26/2024 4 :24 AM EDT 10/26/2024 5:09 AM EDT us Semaj Mcnair III, MD POINT OF CARE TEST ORDERABLES Final Result Performing Organization Address City/[facility]/ZIP Co de Phone Number [facility] [address] * (ABNORMAL) POC Glucose (10/26/2024 4:24 AM EDT) POC Glucose, Arterial 185(H) 70 - 100 mg/dL 10/26/2024 5:09 AM EDT [facility] Blood, Arterial 10/26/2024 4 :24 AM EDT 10/26/2024 5:09 AM EDT us Semaj Mcnair III, MD POINT OF CARE TEST ORDERABLES Final Result [facility] [address] * POC Ionized Calcium (10/26/2024 4:24 AM EDT) POC Ionized Calcium 5.20 4.50 - 5.30 mg/dL 10/26/2024 5:09 AM EDT [facility] Blood, Arterial 10/26/2024 4 :24 AM EDT 10/26/2024 5:09 AM EDT Semaj Mcnair III, MD POINT OF CARE TEST ORDERABLES Final Result [facility] [address] [employer] [facility]. [address] * (ABNORMAL) POC Potassium (10/26/2024 4:24 AM EDT) Pathologist [facility] [place] POC Potassium 2.8(LL) 3.5 - 5.3 mmol/L 10/26/2024 5:09 AM EDT [facility] Blood, Arterial 10/26/2024 4 :24 AM EDT 10/26/2024 5:09 AM EDT us Semaj Mcnair III, MD POINT OF CARE TEST ORDERABLES Final Result [facility] [address] [employer] [facility]. [address] * POC Sodium (10/26/2024 4:24 AM EDT) Pathologist [facility] [place] POC Sodium 139 136 - 146 mmol/L 10/26/2024 5:09 AM EDT [facility] Blood, Arterial 10/26/2024 4 :24 AM EDT 10/26/2024 5:09 AM EDT us Semaj Mcnair III, MD POINT OF CARE TEST ORDERABLES Final Result [facility] [address] * POC TCO2 (10/26/2024 4:24 AM EDT) POC TCO2, Arterial 23 23 - 27 mmol/L 10/26/2024 5:09 AM EDT [facility] Blood, Arterial 10/26/2024 4 :24 AM EDT 10/26/2024 5:09 AM EDT us Semaj Mcnair III, MD POINT OF CARE TEST ORDERABLES Final Result [facility] [address] * POC O2 SAT (10/26/2024 4:24 AM EDT) POC O2 Saturation, Arterial 96 95 - 98 % 10/26/2024 5:09 AM EDT [facility] Blood, Arterial 10/26/2024 4 :24 AM EDT 10/26/2024 5:09 AM EDT us Semaj Mcnair III, MD POINT OF CARE TEST ORDERABLES Final Result Performing Organization Address City/[facility]/ZIP Co de Phone Number [facility] [address] [employer] [facility]. [address] * (ABNORMAL) POC Base Excess (10/26/2024 4:24 AM EDT) POC Base Excess, Arterial -5(L) -2 - 3 mmol/L 10/26/2024 5:09 AM EDT [facility] Blood, Arterial 10/26/2024 4 :24 AM EDT 10/26/2024 5:09 AM EDT us Semaj Mcnair III, MD POINT OF CARE TEST ORDERABLES Final Result [facility] [address] * POC HCO3 (10/26/2024 4:24 AM EDT) POC HCO3, Arterial 22 22 - 26 mmol/L 10/26/2024 5:09 AM EDT [facility] Blood, Arterial 10/26/2024 4 :24 AM EDT 10/26/2024 5:09 AM EDT Semaj Mcnair III, MD POINT OF CARE TEST ORDERABLES Final Result Performing Organization Address City/[facility] Co de Phone Number [facility] [address] [place] [address]. [address] * POC PO2 (10/26/2024 4:24 AM EDT) POC pO2, Arterial 93 80 - 100 mm Hg 10/26/2024 5:09 AM EDT [facility] Blood, Arterial 10/26/2024 4 :24 AM EDT 10/26/2024 5:09 AM EDT us Semaj Mcnair III, MD POINT OF CARE TEST ORDERABLES Final Result Performing Organization Address [facility] Co de Phone Number [facility] [address] [place] [address]. [address] * POC PCO2 (10/26/2024 4:24 AM EDT) POC pCO2, Arterial 44 35 - 45 mm Hg 10/26/2024 5:09 AM EDT [facility] Blood, Arterial 10/26/2024 4 :24 AM EDT 10/26/2024 5:09 AM EDT us Semaj Mcnair III, MD POINT OF CARE TEST ORDERABLES Final Result Performing Organization Address [facility] Co de Phone Number [facility] [address] [place] [address]. [address] * (ABNORMAL) POC pH (10/26/2024 4:24 AM EDT) POC pH, Arterial 7.30(L) 7.35 - 7.45 10/26/2024 5:09 AM EDT [facility] Blood, Arterial 10/26/2024 4 :24 AM EDT 10/26/2024 5:09 AM EDT us Semaj Mcnair III, MD POINT OF CARE TEST ORDERABLES Final Result Performing Organization Address City/[facility]/ZIP Co de Phone Number [facility] [address] [employer] [facility]. [address] * Transfuse Platelets (10/26/2024 4:14 AM EDT) us Ben Blake MD NURSING TREATMENT ORDERABLES - BLOOD ADMIN Final Result * Transfuse Fresh Frozen Plasma (10/26/2024 3:47 AM EDT) us Ben Blake MD NURSING [...] - [place]/ZIP Co de Phone Number [facility] [address] * POC Sample Type (10/26/2024 3:31 AM EDT) POC Sample Type Arterial 10/26/2024 4:11 AM EDT [facility] Blood, Arterial 10/26/2024 3 :31 AM EDT 10/26/2024 4:11 AM EDT us Semaj Mcnair III, MD POINT OF CARE TEST ORDERABLES Final Result Performing Organization Address City/[facility]/ZIP Co de Phone Number [facility] [address] [place] [address]. [address] * POC Anion Gap (10/26/2024 3:31 AM EDT) POC Anion Gap, Arterial 15 3 - 16 mmol/L 10/26/2024 4:11 AM EDT [facility] Blood, Arterial 10/26/2024 3 :31 AM EDT 10/26/2024 4:11 AM EDT us Semaj Mcnair III, MD POINT OF CARE TEST ORDERABLES Final Result Performing Organization Address [facility] Co de Phone Number [facility] [address] [employer] [facility]. [address] * POC Chloride (10/26/2024 3:31 AM EDT) Pathologist [facility] [place] POC Chloride 105 98 - 110 mmol/L 10/26/2024 4:11 AM EDT [facility] Blood, Arterial 10/26/2024 3 :31 AM EDT 10/26/2024 4:11 AM EDT us Semaj Mcnair III, MD POINT OF CARE TEST ORDERABLES Final Result Performing Organization Address City/[facility] Co de Phone Number [facility] [address] [facility]. [address] * (ABNORMAL) POC Hemoglobin (10/26/2024 3:31 AM EDT) POC Hemoglobin 9.7(L) 14.0 - 18.0 g/dL 10/26/2024 4:11 AM EDT [facility] Blood, Arterial 10/26/2024 3 :31 AM EDT 10/26/2024 4:11 AM EDT us Semaj Mcnair III, MD POINT OF CARE TEST ORDERABLES Final Result [facility] [address] * (ABNORMAL) POC hematocrit (10/26/2024 3:31 AM EDT) POC Hematocrit 29.0(L) 40 - 52 % 10/26/2024 4:11 AM EDT [facility] Blood, Arterial 10/26/2024 3 :31 AM EDT 10/26/2024 4:11 AM EDT us Semaj Mcnair III, MD POINT OF CARE TEST ORDERABLES Final Result Performing Organization Address City/[facility]/ZIP Co de Phone Number [facility] [address] * (ABNORMAL) POC Lactate (10/26/2024 3:31 AM EDT) POC Lactate 3.54(H) 0.50 - 2.20 mmol/L 10/26/2024 4:11 AM EDT [facility] Blood, Arterial 10/26/2024 3 :31 AM EDT 10/26/2024 4:11 AM EDT us Semaj Mcnair III, MD POINT OF CARE TEST ORDERABLES Final Result [facility] [address] * (ABNORMAL) POC Glucose (10/26/2024 3:31 AM EDT) POC Glucose, Arterial 153(H) 70 - 100 mg/dL 10/26/2024 4:11 AM EDT [facility] Blood, Arterial 10/26/2024 3 :31 AM EDT 10/26/2024 4:11 AM EDT Semaj Mcnair III, MD POINT OF CARE TEST ORDERABLES Final Result Performing Organization Address City/[facility]/ZIP Co de Phone Number [facility] [address] * POC Ionized Calcium (10/26/2024 3:31 AM EDT) POC Ionized Calcium 5.10 4.50 - 5.30 mg/dL 10/26/2024 4:11 AM EDT [facility] Blood, Arterial 10/26/2024 3 :31 AM EDT 10/26/2024 4:11 AM EDT Semaj Mcnair III, MD POINT OF CARE TEST ORDERABLES Final Result Performing Organization Address [facility] Co de Phone Number [facility] [address] [employer] [facility]. [address] * (ABNORMAL) POC Potassium (10/26/2024 3:31 AM EDT) POC Potassium 2.6(LL) 3.5 - 5.3 mmol/L 10/26/2024 4:11 AM EDT [facility] Blood, Arterial 10/26/2024 3 :31 AM EDT 10/26/2024 4:11 AM EDT Semaj Mcnair III, MD POINT OF CARE TEST ORDERABLES Final Result Performing Organization Address City/[facility] Co de Phone Number [facility] [address] [employer] [facility]. [address] * POC Sodium (10/26/2024 3:31 AM EDT) POC Sodium 138 136 - 146 mmol/L 10/26/2024 4:11 AM EDT [facility] Blood, Arterial 10/26/2024 3 :31 AM EDT 10/26/2024 4:11 AM EDT us Semaj Mcnair III, MD POINT OF CARE TEST ORDERABLES Final Result Performing Organization Address City/[facility] Co de Phone Number [facility] [address] * (ABNORMAL) POC TCO2 (10/26/2024 3:31 AM EDT) POC TCO2, Arterial 19(L) 23 - 27 mmol/L 10/26/2024 4:11 AM EDT [facility] Blood, Arterial 10/26/2024 3 :31 AM EDT 10/26/2024 4:11 AM EDT us Semaj Mcnair III, MD POINT OF CARE TEST ORDERABLES Final Result Performing Organization Address [facility] Co de Phone Number [facility] [address] [place] [address]. [address] * POC O2 SAT (10/26/2024 3:31 AM EDT) POC O2 Saturation, Arterial 97 95 - 98 % 10/26/2024 4:11 AM EDT [facility] Blood, Arterial 10/26/2024 3 :31 AM EDT 10/26/2024 4:11 AM EDT us Semaj Mcnair III, MD POINT OF CARE TEST ORDERABLES Final Result Performing Organization Address [facility] Co de Phone Number [facility] [address] [employer] [facility]. [address] * (ABNORMAL) POC Base Excess (10/26/2024 3:31 AM EDT) POC Base Excess, Arterial -9(L) -2 - 3 mmol/L 10/26/2024 4:11 AM EDT [facility] Blood, Arterial 10/26/2024 3 :31 AM EDT 10/26/2024 4:11 AM EDT us Semaj Mcnair III, MD POINT OF CARE TEST ORDERABLES Final Result [facility] [address] [employer] [facility]. [address] * (ABNORMAL) POC HCO3 (10/26/2024 3:31 AM EDT) POC HCO3, Arterial 18(L) 22 - 26 mmol/L 10/26/2024 4:11 AM EDT [facility] Blood, Arterial 10/26/2024 3 :31 AM EDT 10/26/2024 4:11 AM EDT Semaj Mcnair III, MD POINT OF CARE TEST ORDERABLES Final Result Performing Organization Address [facility] Co de Phone Number [facility] [address] [employer] [facility]. [address] * (ABNORMAL) POC PO2 (10/26/2024 3:31 AM EDT) POC pO2, Arterial 104(H) 80 - 100 mm Hg 10/26/2024 4:11 AM EDT [facility] Blood, Arterial 10/26/2024 3 :31 AM EDT 10/26/2024 4:11 AM EDT Semaj Mcnair III, MD POINT OF CARE TEST ORDERABLES Final Result Performing Organization Address City/[facility] Co de Phone Number [facility] [address] [employer] [facility]. [address] * POC PCO2 (10/26/2024 3:31 AM EDT) POC pCO2, Arterial 42 35 - 45 mm Hg 10/26/2024 4:11 AM EDT [facility] Blood, Arterial 10/26/2024 3 :31 AM EDT 10/26/2024 4:11 AM EDT Semaj Mcnair III, MD POINT OF CARE TEST ORDERABLES Final Result Performing Organization Address City/[facility]/ZIP Co de Phone Number [facility] [address] * (ABNORMAL) POC pH (10/26/2024 3:31 AM EDT) Pathologist [facility] [place] POC pH, Arterial 7.24(L) 7.35 - 7.45 10/26/2024 4:11 AM EDT [facility] Blood, Arterial 10/26/2024 3 :31 AM EDT 10/26/2024 4:11 AM EDT us Semaj Mcnair III, MD POINT OF CARE TEST ORDERABLES Final Result Performing Organization Address [facility] Co de Phone Number [facility] [address] [facility]. [address] * (ABNORMAL) TEG-Global With Lysis (Baseline TEG with LY30, Will NOT Show Heparin Effect) (53:31 AM EDT) [facility] Citrated Kaolin Reaction Time (TEGLYSIS) 6.8 4.6 - 9.1 minutes 10/26/2024 5:02 AM EDT [facility] Citrated Rapid Teg Maximum Amplitude (TEGLYSIS) <40.0(L) 52.0 - 70.0 mm 10/26/2024 5:02 AM EDT [facility] Citrated Functional Fibrinogen Maximum Amplitude (TEGLYSIS) <4.0(L) 15.0 - 32.0 mm 10/26/2024 5:02 AM EDT [facility] Citrated Kaolin Percent Lysis (TEGLYSIS) 1.4 0.0 - 2.6 % 10/26/2024 5:02 AM EDT [facility] Whole Blood (Citrate) 10/26/2024 3:31 AM EDT 10/26/2024 3:40 AM EDT us Eber Quinones MD LAB BLOOD ORDERABLES Fin al Result Performing Organization Address City/[facility]/ZIP Co de Phone Number [facility] [address] [employer]. [address] * (ABNORMAL) CBC (10/26/2024 3:31 AM EDT) WBC 9.5 3.8 - 10.8 10E3/uL 10/26/2024 3:48 AM EDT [facility] RBC 3.68(L) 4.20 - 5.80 10E6/uL 10/26/2024 3:48 AM EDT [facility] Hemoglobin 11.5(L) 13.2 - 17.1 g/dL 10/26/2024 3:48 AM EDT [facility] Hematocrit 33.0(L) 38.5 - 50.0 % 10/26/2024 3:48 AM EDT [facility] MCV 89.6 80.0 - 100.0 fL 10/26/2024 3:48 AM EDT [facility] MCH 31.1 27.0 - 33.0 pg 10/26/2024 3:48 AM EDT [facility] MCHC 34.8 32.0 - 36.0 g/dL 10/26/2024 3:48 AM EDT [facility] RDW 19.3(H) 11.0 - 15.0 % 10/26/2024 3:48 AM EDT [facility] Platelets 67(L) 140 - 400 10E3/uL 10/26/2024 3:48 AM EDT [facility] MPV 7.9 7.5 - 11.5 fL 10/26/2024 3:48 AM EDT [facility] Whole Blood 10/26/2024 3:31 AM EDT 10/26/2024 3:40 AM EDT us Eber Quinones MD LAB BLOOD ORDERABLES Fin al Result [facility] [address] * (ABNORMAL) Protime-INR (10/26/2024 3:31 AM EDT) Protime 27.0(H) 12.1 - 15.1 seconds 10/26/2024 3:51 AM EDT [facility] INR 2.4(H) 0.9 - 1.1 10/26/2024 3:51 AM EDT [facility] Comment: RECOMMENDED THERAPEUTIC RANGES USING INR : Stable oral anticoagulant therapy: 2.0 - 3.0 Mechanical prosthetic heart valve: 2.5 - 3.5 Recurrent acute myocardial infarction: 2.5 - 3.5 Plasma 10/26/2024 3:31 AM EDT 10/26/2024 3:40 AM EDT Result [facility] Eber Quinones MD LAB BLOOD ORDERABLES Fin al Result Performing Organization Address [facility] de Phone Number [facility] [address] [facility]. [address] * (ABNORMAL) Fibrinogen (10/26/2024 3:31 AM EDT) [facility] Fibrinogen 104(L) 218 - 406 mg/dL 10/26/2024 3:56 AM EDT [facility] Plasma 10/26/2024 3:31 AM EDT 10/26/2024 3:40 AM EDT Eber Quinones MD LAB BLOOD ORDERABLES Fin al Result Performing Organization Address [facility] de Phone Number [facility] [address] [facility]. [address] * Transfuse Fresh Frozen Plasma (10/26/2024 3:16 AM EDT) Result [facility] us Ben Blake MD NURSING [...] (ABNORMAL) POC INR (10/26/2024 1:43 AM EDT) [facility] Prothrombin Time INR, POC 1.9(H) 0.8 - [...] POINT OF CARE TEST ORDERABLES Final Result [facility] [address] * Transfuse Fresh Frozen Plasma (10/26/2024 1:41 AM EDT) Ben Blake MD NURSING TREATMENT ORDERABLES - BLOOD ADMIN Final Result * Transfuse RBC (10/26/2024 1:40 AM EDT) Ben Blake MD NURSING TREATMENT ORDERABLES - BLOOD ADMIN Final Result * POC Sample Type (10/26/2024 1:40 AM EDT) Pathologist [facility] POC Sample Type Arterial 10/26/2024 2:32 AM EDT [facility] Blood, Arterial 10/26/2024 1 :40 AM EDT 10/26/2024 2:32 AM EDT Semaj Mcnair III, MD POINT OF CARE TEST ORDERABLES Final Result [facility] [address] [employer] [facility]. [address] * POC Anion Gap (10/26/2024 1:40 AM EDT) [facility] POC Anion Gap, Arterial 13 3 - 16 mmol/L 10/26/2024 2:32 AM EDT [facility] Blood, Arterial 10/26/2024 1 :40 AM EDT 10/26/2024 2:32 AM EDT Result [facility] Semaj Mcnair III, MD POINT OF CARE TEST ORDERABLES Final Result [facility] [address] [employer] [facility]. [address] * POC Chloride (10/26/2024 1:40 AM EDT) [facility] POC Chloride 104 98 - 110 mmol/L 10/26/2024 2:32 AM EDT [facility] Blood, Arterial 10/26/2024 1 :40 AM EDT 10/26/2024 2:32 AM EDT Semaj Mcnair III, MD POINT OF CARE TEST ORDERABLES Final Result Performing Organization Address [facility] Co de Phone Number [facility] [address] [employer] [facility]. [address] * (ABNORMAL) POC Hemoglobin (10/26/2024 1:40 AM EDT) POC Hemoglobin 7.4(L) 14.0 - 18.0 g/dL 10/26/2024 2:32 AM EDT [facility] Blood, Arterial 10/26/2024 1 :40 AM EDT 10/26/2024 2:32 AM EDT us Semaj Mcnair III, MD POINT OF CARE TEST ORDERABLES Final Result Performing Organization Address [facility] de Phone Number [facility] [address] [place], [place] [address]ue [employer] [facility]. [address] * (ABNORMAL) POC hematocrit (10/26/2024 1:40 AM EDT) POC Hematocrit 22.0(L) 40 - 52 % 10/26/2024 2:32 AM EDT [facility] Blood, Arterial 10/26/2024 1 :40 AM EDT 10/26/2024 2:32 AM EDT Semaj Mcnair III, MD POINT OF CARE TEST ORDERABLES Final Result Performing Organization Address [facility] Co de Phone Number [place] [address] [employer] [facility]. [address] * (ABNORMAL) POC Lactate (10/26/2024 1:40 AM EDT) POC Lactate 2.30(H) 0.50 - 2.20 mmol/L 10/26/2024 2:32 AM EDT [facility] Blood, Arterial 10/26/2024 1 :40 AM EDT 10/26/2024 2:32 AM EDT Semaj Mcnair III, MD POINT OF CARE TEST ORDERABLES Final Result Performing Organization Address [facility] Co de Phone Number [facility] [address] [employer] [facility]. [address] * (ABNORMAL) POC Glucose (10/26/2024 1:40 AM EDT) POC Glucose, Arterial 116(H) 70 - 100 mg/dL 10/26/2024 2:32 AM EDT [facility] Blood, Arterial 10/26/2024 1 :40 AM EDT 10/26/2024 2:32 AM EDT Semaj Mcnair III, MD POINT OF CARE TEST ORDERABLES Final Result Performing Organization Address [facility] Co de Phone Number [facility] [address] [employer] [facility]. [address] * (ABNORMAL) POC Ionized Calcium (10/26/2024 1:40 AM EDT) POC Ionized Calcium 4.10(L) 4.50 - 5.30 mg/dL 10/26/2024 2:32 AM EDT [facility] Blood, Arterial 10/26/2024 1 :40 AM EDT 10/26/2024 2:32 AM EDT Semaj Mcnair III, MD POINT OF CARE TEST ORDERABLES Final Result Performing Organization Address City/[facility] Co de Phone Number [facility] [address] [employer] [facility]. [address] * (ABNORMAL) POC Potassium (10/26/2024 1:40 AM EDT) POC Potassium 2.6(LL) 3.5 - 5.3 mmol/L 10/26/2024 2:32 AM EDT [facility] Blood, Arterial 10/26/2024 1 :40 AM EDT 10/26/2024 2:32 AM EDT Semaj Mcnair III, MD POINT OF CARE TEST ORDERABLES Final Result Performing Organization Address City/[facility]/ZIP Co de Phone Number [facility] [address] * (ABNORMAL) POC Sodium (10/26/2024 1:40 AM EDT) POC Sodium 135(L) 136 - 146 mmol/L 10/26/2024 2:32 AM EDT [facility] Blood, Arterial 10/26/2024 1 :40 AM EDT 10/26/2024 2:32 AM EDT Semaj Mcnair III, MD POINT OF CARE TEST ORDERABLES Final Result Performing Organization Address [facility] Co de Phone Number [facility] [address] [facility]. [address] * (ABNORMAL) POC TCO2 (10/26/2024 1:40 AM EDT) POC TCO2, Arterial 19(L) 23 - 27 mmol/L 10/26/2024 2:32 AM EDT [facility] Blood, Arterial 10/26/2024 1 :40 AM EDT 10/26/2024 2:32 AM EDT Semaj Mcnair III, MD POINT OF CARE TEST ORDERABLES Final Result Performing Organization Address City/[facility] Co de Phone Number [facility] [address] [employer] [facility]. [address] * (ABNORMAL) POC O2 SAT (10/26/2024 1:40 AM EDT) POC O2 Saturation, Arterial 99(H) 95 - 98 % 10/26/2024 2:32 AM EDT [facility] Blood, Arterial 10/26/2024 1 :40 AM EDT 10/26/2024 2:32 AM EDT us Semaj Mcnair III, MD POINT OF CARE TEST ORDERABLES Final Result [facility] [address] [employer] [facility]. [address] * (ABNORMAL) POC Base Excess (10/26/2024 1:40 AM EDT) POC Base Excess, Arterial -7(L) -2 - 3 mmol/L 10/26/2024 2:32 AM EDT [facility] Blood, Arterial 10/26/2024 1 :40 AM EDT 10/26/2024 2:32 AM EDT Semaj Mcnair III, MD POINT OF CARE TEST ORDERABLES Final Result Performing Organization Address [facility] Co de Phone Number [facility] [address] [place] [address]. [address] * (ABNORMAL) POC HCO3 (10/26/2024 1:40 AM EDT) POC HCO3, Arterial 18(L) 22 - 26 mmol/L 10/26/2024 2:32 AM EDT [facility] Blood, Arterial 10/26/2024 1 :40 AM EDT 10/26/2024 2:32 AM EDT Semaj Mcnair III, MD POINT OF CARE TEST ORDERABLES Final Result Performing Organization Address City/[facility] Co de Phone Number [facility] [address] [employer] [facility]. [address] * (ABNORMAL) POC PO2 (10/26/2024 1:40 AM EDT) POC pO2, Arterial 145(H) 80 - 100 mm Hg 10/26/2024 2:32 AM EDT [facility] Blood, Arterial 10/26/2024 1 :40 AM EDT 10/26/2024 2:32 AM EDT Semaj Mcnair III, MD POINT OF CARE TEST ORDERABLES Final Result Performing Organization Address [facility] Co de Phone Number [facility] [address] [employer] [facility]. [address] * (ABNORMAL) POC PCO2 (10/26/2024 1:40 AM EDT) POC pCO2, Arterial 33(L) 35 - 45 mm Hg 10/26/2024 2:32 AM EDT [facility] Blood, Arterial 10/26/2024 1 :40 AM EDT 10/26/2024 2:32 AM EDT Semaj Mcnair III, MD POINT OF CARE TEST ORDERABLES Final Result Performing Organization Address [facility] Co de Phone Number [facility] [address] [employer] [facility]. [address] * POC pH (10/26/2024 1:40 AM EDT) POC pH, Arterial 7.35 7.35 - 7.45 10/26/2024 2:32 AM EDT [facility] Blood, Arterial 10/26/2024 1 :40 AM EDT 10/26/2024 2:32 AM EDT Result [facility] Semaj Mcnair III, MD POINT OF CARE TEST ORDERABLES Final Result Performing Organization Address [facility] Co de Phone Number [facility] [address] [employer] [facility]. [address] * Transfuse Fresh Frozen Plasma (10/26/2024 1:20 AM EDT) Result [facility] Ben Blake MD NURSING TREATMENT ORDERABLES - BLOOD ADMIN Final Result * Transfuse RBC (10/26/2024 12:56 AM EDT) Result [facility] Ben Blake MD NURSING TREATMENT ORDERABLES - BLOOD ADMIN Final Result * (ABNORMAL) POC INR (10/26/2024 12:41 AM EDT) Prothrombin Time INR, POC 2.0(H) 0.8 - 1.4 10/27/2024 6:51 AM EDT [facility] Comment: Test results may vary [...] - [place]/ZIP Co de Phone Number [facility] [address] * POC Sample Type (10/26/2024 12:39 AM EDT) POC Sample Type Arterial 10/26/2024 1:38 AM EDT [facility] Blood, Arterial 10/26/2024 1 2:39 AM EDT 10/26/2024 1:38 AM EDT Semaj Mcnair III, MD POINT OF CARE TEST ORDERABLES Final Result Performing Organization Address [facility] Co de Phone Number [facility] [address] * POC Anion Gap (10/26/2024 12:39 AM EDT) POC Anion Gap, Arterial 13 3 - 16 mmol/L 10/26/2024 1:38 AM EDT [facility] Blood, Arterial 10/26/2024 1 2:39 AM EDT 10/26/2024 1:38 AM EDT us Semaj Mcnair III, MD POINT OF CARE TEST ORDERABLES Final Result Performing Organization Address City/[facility]/ZIP Co de Phone Number [facility] [address] * POC Chloride (10/26/2024 12:39 AM EDT) POC Chloride 103 98 - 110 mmol/L 10/26/2024 1:38 AM EDT [facility] Blood, Arterial 10/26/2024 1 2:39 AM EDT 10/26/2024 1:38 AM EDT us Semaj Mcnair III, MD POINT OF CARE TEST ORDERABLES Final Result Performing Organization Address City/[facility]/ZIP Co de Phone Number [facility] [address] [facility] [address] * (ABNORMAL) POC Hemoglobin (10/26/2024 12:39 AM EDT) Pathologist [facility] POC Hemoglobin 7.9(L) 14.0 - 18.0 g/dL 10/26/2024 1:38 AM EDT [facility] Blood, Arterial 10/26/2024 1 2:39 AM EDT 10/26/2024 1:38 AM EDT us Semaj Mcnair III, MD POINT OF CARE TEST ORDERABLES Final Result Performing Organization Address [facility] Co de Phone Number [facility] [address] [facility]. [address] * (ABNORMAL) POC hematocrit (10/26/2024 12:39 AM EDT) Pathologist [facility] POC Hematocrit 23.0(L) 40 - 52 % 10/26/2024 1:38 AM EDT [facility] Blood, Arterial 10/26/2024 1 2:39 AM EDT 10/26/2024 1:38 AM EDT us Semaj Mcnair III, MD POINT OF CARE TEST ORDERABLES Final Result Performing Organization Address City/[facility]/ZIP Co de Phone Number [facility] [address] * POC Lactate (10/26/2024 12:39 AM EDT) Pathologist [facility] POC Lactate 1.39 0.50 - 2.20 mmol/L 10/26/2024 1:38 AM EDT [facility] Blood, Arterial 10/26/2024 1 2:39 AM EDT 10/26/2024 1:38 AM EDT us Semaj Mcnair III, MD POINT OF CARE TEST ORDERABLES Final Result Performing Organization Address City/[facility] Co de Phone Number [facility] [address] [facility]. [address] * (ABNORMAL) POC Glucose (10/26/2024 12:39 AM EDT) [facility] POC Glucose, Arterial 116(H) 70 - 100 mg/dL 10/26/2024 1:38 AM EDT [facility] Blood, Arterial 10/26/2024 1 2:39 AM EDT 10/26/2024 1:38 AM EDT us Semaj Mcnair III, MD POINT OF CARE TEST ORDERABLES Final Result Performing Organization Address [facility] Co de Phone Number [facility] [address] [facility]. [address] * (ABNORMAL) POC Ionized Calcium (10/26/2024 12:39 AM EDT) [facility] POC Ionized Calcium 4.30(L) 4.50 - 5.30 mg/dL 10/26/2024 1:38 AM EDT [facility] Blood, Arterial 10/26/2024 1 2:39 AM EDT 10/26/2024 1:38 AM EDT us Semaj Mcnair III, MD POINT OF CARE TEST ORDERABLES Final Result Performing Organization Address [facility] Co de Phone Number [facility] [address] [facility]. [address] * (ABNORMAL) POC Potassium (10/26/2024 12:39 AM EDT) POC Potassium 2.4(LL) 3.5 - 5.3 mmol/L 10/26/2024 1:38 AM EDT [facility] Blood, Arterial 10/26/2024 1 2:39 AM EDT 10/26/2024 1:38 AM EDT us Semaj Mcnair III, MD POINT OF CARE TEST ORDERABLES Final Result [facility] [address] [facility]. [address] * POC Sodium (10/26/2024 12:39 AM EDT) Pathologist [facility] POC Sodium 136 136 - 146 mmol/L 10/26/2024 1:38 AM EDT [facility] Blood, Arterial 10/26/2024 1 2:39 AM EDT 10/26/2024 1:38 AM EDT us Semaj Mcnair III, MD POINT OF CARE TEST ORDERABLES Final Result Performing Organization Address [facility] Co de Phone Number [facility] [address] [facility]. [address] * (ABNORMAL) POC TCO2 (10/26/2024 12:39 AM EDT) Pathologist [facility] POC TCO2, Arterial 21(L) 23 - 27 mmol/L 10/26/2024 1:38 AM EDT [facility] Blood, Arterial 10/26/2024 1 2:39 AM EDT 10/26/2024 1:38 AM EDT us Semaj Mcnair III, MD POINT OF CARE TEST ORDERABLES Final Result Performing Organization Address City/[facility]/ZIP Co de Phone Number [facility] [address] [facility]. [address] * POC O2 SAT (10/26/2024 12:39 AM EDT) POC O2 Saturation, Arterial 98 95 - 98 % 10/26/2024 1:38 AM EDT [facility] Blood, Arterial 10/26/2024 1 2:39 AM EDT 10/26/2024 1:38 AM EDT us Semaj Mcnair III, MD POINT OF CARE TEST ORDERABLES Final Result Performing Organization Address City/[facility]/ZIP Co de Phone Number [facility] [address] [place] [address]. [address] * (ABNORMAL) POC Base Excess (10/26/2024 12:39 AM EDT) POC Base Excess, Arterial -7(L) -2 - 3 mmol/L 10/26/2024 1:38 AM EDT [facility] Blood, Arterial 10/26/2024 1 2:39 AM EDT 10/26/2024 1:38 AM EDT us Semaj Mcnair III, MD POINT OF CARE TEST ORDERABLES Final Result Performing Organization Address [facility] Co de Phone Number [facility] [address] [place] [address]. [address] * (ABNORMAL) POC HCO3 (10/26/2024 12:39 AM EDT) POC HCO3, Arterial 20(L) 22 - 26 mmol/L 10/26/2024 1:38 AM EDT [facility] Blood, Arterial 10/26/2024 1 2:39 AM EDT 10/26/2024 1:38 AM EDT us Semaj Mcnair III, MD POINT OF CARE TEST ORDERABLES Final Result Performing Organization Address City/[facility] Co de Phone Number [facility] [address] * (ABNORMAL) POC PO2 (10/26/2024 12:39 AM EDT) POC pO2, Arterial 117(H) 80 - 100 mm Hg 10/26/2024 1:38 AM EDT [facility] Blood, Arterial 10/26/2024 1 2:39 AM EDT 10/26/2024 1:38 AM EDT Semaj Mcnair III, MD POINT OF CARE TEST ORDERABLES Final Result Performing Organization Address City/[facility]/ZIP Co de Phone Number [facility] [address] [place] [address]. [address] * (ABNORMAL) POC PCO2 (10/26/2024 12:39 AM EDT) POC pCO2, Arterial 46(H) 35 - 45 mm Hg 10/26/2024 1:38 AM EDT [facility] Blood, Arterial 10/26/2024 1 2:39 AM EDT 10/26/2024 1:38 AM EDT Semaj Mcnair III, MD POINT OF CARE TEST ORDERABLES Final Result Performing Organization Address [facility] Co de Phone Number [facility] [address] [place] [address]. [address] * (ABNORMAL) POC pH (10/26/2024 12:39 AM EDT) POC pH, Arterial 7.24(L) 7.35 - 7.45 10/26/2024 1:38 AM EDT [facility] Blood, Arterial 10/26/2024 1 2:39 AM EDT 10/26/2024 1:38 AM EDT Semaj Mcnair III, MD POINT OF CARE TEST ORDERABLES Final Result Performing Organization Address City/[facility] [place] Co de Phone Number [facility] [address] [facility]. [address] * Transfuse Platelets (10/26/2024 12:37 AM EDT) Ben Blake MD NURSING TREATMENT ORDERABLES - BLOOD ADMIN Final Result * Transfuse RBC (10/26/2024 12:31 AM EDT) Ben Blake MD NURSING TREATMENT ORDERABLES - BLOOD ADMIN Final Result * Transfuse Fresh Frozen Plasma (10/26/2024 12:28 AM EDT) Result [facility] Ben Blake MD NURSING TREATMENT ORDERABLES - BLOOD ADMIN Final Result * Transfuse Fresh Frozen Plasma (10/26/2024 12:28 AM EDT) Ben Blake MD NURSING TREATMENT ORDERABLES - BLOOD ADMIN Final Result * Routine Culture plus Stain (10/26/2024 12:03 AM EDT) Gram Stain Result Cytospin Results: [facility] Gram Stain Result Polymorphonuclear Leukocytes Seen; [facility] Gram Stain Result No Organisms Seen; [facility] Culture Result No Growth After 3 Days [facility] Surgical Swab ABDOMEN / Unknown 12:03 AM EDT Comment:2.) Ascites Anaerobhic culture Fungus culture Routine culture plus stain Narrative [facility] - 10/28/2024 9:38 PM EDT 2.) Ascites Anaerobhic culture Fungus culture Routine culture plus stain 2.) Ascites Semaj Mcnair III, MD MICROBIOLOGY - GENE RAL ORDERABLES Final Result Performing Organization Address City/State/[facility] Co de Phone Number [facility] [address] * Surgical Pathology Exam (10/26/2024 12:00 AM EDT) 10/26/2024 10/27/2024 Narrative [facility] - 10/26/2024 12:00 AM EDT CASE: [id number] PATIENT: BLAIR GILBERT Clinical History: Liver - kidney transplant Pre-Operative Diagnosis: Alcoholic cirrhosis of liver Post-Operative Diagnosis: Alcoholic cirrhosis of liver Specimen(s) Submitted: A. chalkyitsik liver CPT Code(s): 81603 X 1; 80642 X 5 Additional Information: FINAL DIAGNOSIS: A. 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 - Negative for neoplasm. - Increased hepatocellular iron deposition (3+; Modified Scheuer). Gall bladder: -Intramucosal and submucosal vascular congestion and hemorrhage. - Negative for dysplasia or malignancy. Gross Description: Received in formalin, labeled Blair Gilbert and chalkyitsik liver , is a 2338-gram, hepatectomy specimen [...] discrete masses or other lesions are identified. Side Door Man sections are submitted in cassettes [id number] as follows: A1: Hilar margins, en face. [...] Pathologist signing this report is located at [facility], [address] [place] [address], [place], [place], [facility], , CLIA ID: [id number] us Semaj Mcnair III, MD PATHOLOGY/CYTOLOGY ORDERABLES Final Result Performing Organization Address City/[facility]/ZIP Co de Phone Number [facility] * Transfuse [...] 0.8 - 1.4 10/27/2024 6:51 AM EDT [facility] Comment: Test results may vary [...] Final Result Performing Organization Address [facility] [facility]/ZIP Co de Phone Number [facility] [address] [place] [address] * POC Sample Type (10/25/2024 11:40 PM EDT) Pathologist [facility] POC Sample Type Arterial 10/25/2024 11:57 PM EDT [facility] Blood, Arterial 10/25/2024 1 1:40 PM EDT 10/25/2024 11:57 PM EDT Semaj Mcnair III, MD POINT OF CARE TEST ORDERABLES Final Result [facility] [address] [facility]. [address] * POC Anion Gap (10/25/2024 11:40 PM EDT) [facility] POC Anion Gap, Arterial 13 3 - 16 mmol/L 10/25/2024 11:57 PM EDT [facility] Blood, Arterial 10/25/2024 1 1:40 PM EDT 10/25/2024 11:57 PM EDT Semaj Mcnair III, MD POINT OF CARE TEST ORDERABLES Final Result Performing Organization Address City/[facility] [place] [facility]/ZIP Co de Phone Number [facility] [address] [place] [address]. [address] * POC Chloride (10/25/2024 11:40 PM EDT) Pathologist [facility] POC Chloride 102 98 - 110 mmol/L 10/25/2024 11:57 PM EDT [facility] Blood, Arterial 10/25/2024 1 1:40 PM EDT 10/25/2024 11:57 PM EDT Semaj Mcnair III, MD POINT OF CARE TEST ORDERABLES Final Result [facility] [address] [facility]. [address] * (ABNORMAL) POC Hemoglobin (10/25/2024 11:40 PM EDT) [facility] POC Hemoglobin 6.6(L) 14.0 - 18.0 g/dL 10/25/2024 11:57 PM EDT [facility] Blood, Arterial 10/25/2024 1 1:40 PM EDT 10/25/2024 11:57 PM EDT us Semaj Mcnair III, MD POINT OF CARE TEST ORDERABLES Final Result [facility] [address] [place] [address]. [address] * (ABNORMAL) POC hematocrit (10/25/2024 11:40 PM EDT) [facility] POC Hematocrit 19.0(L) 40 - 52 % 10/25/2024 11:57 PM EDT [facility] Blood, Arterial 10/25/2024 1 1:40 PM EDT 10/25/2024 11:57 PM EDT us Semaj Mcnair III, MD POINT OF CARE TEST ORDERABLES Final Result Performing Organization Address [facility] Co de Phone Number [facility] [address] [place] [address]. [address] * POC Lactate (10/25/2024 11:40 PM EDT) [facility] POC Lactate 1.36 0.50 - 2.20 mmol/L 10/25/2024 11:57 PM EDT [facility] Blood, Arterial 10/25/2024 1 1:40 PM EDT 10/25/2024 11:57 PM EDT us Semaj Mcnair III, MD POINT OF CARE TEST ORDERABLES Final Result Performing Organization Address City/[facility] Co de Phone Number [facility] [address] [place] [address]. [address] * (ABNORMAL) POC Glucose (10/25/2024 11:40 PM EDT) [facility] POC Glucose, Arterial 101(H) 70 - 100 mg/dL 10/25/2024 11:57 PM EDT [facility] Blood, Arterial 10/25/2024 1 1:40 PM EDT 10/25/2024 11:57 PM EDT us Semaj Mcnair III, MD POINT OF CARE TEST ORDERABLES Final Result Performing Organization Address [facility] Co de Phone Number [facility] [address] [place] [address]. [address] * POC Ionized Calcium (10/25/2024 11:40 PM EDT) [facility] POC Ionized Calcium 4.50 4.50 - 5.30 mg/dL 10/25/2024 11:57 PM EDT [facility] Blood, Arterial 10/25/2024 1 1:40 PM EDT 10/25/2024 11:57 PM EDT Semaj Mcnair III, MD POINT OF CARE TEST ORDERABLES Final Result Performing Organization Address [facility] Co de Phone Number [facility] [address] [place] [address] * (ABNORMAL) POC Potassium (10/25/2024 11:40 PM EDT) [facility] POC Potassium 1.9(LL) 3.5 - 5.3 mmol/L 10/25/2024 11:57 PM EDT [facility] Blood, Arterial 10/25/2024 1 1:40 PM EDT 10/25/2024 11:57 PM EDT us Semaj Mcnair III, MD POINT OF CARE TEST ORDERABLES Final Result Performing Organization Address [facility] Co de Phone Number [facility] [address] [place] [address] * (ABNORMAL) POC Sodium (10/25/2024 11:40 PM EDT) [facility] POC Sodium 135(L) 136 - 146 mmol/L 10/25/2024 11:57 PM EDT [facility] Blood, Arterial 10/25/2024 1 1:40 PM EDT 10/25/2024 11:57 PM EDT us Semaj Mcnair III, MD POINT OF CARE TEST ORDERABLES Final Result Performing Organization Address City/[facility]/ZIP Co de Phone Number [facility] [address] [place] [address]. [address] * (ABNORMAL) POC TCO2 (10/25/2024 11:40 PM EDT) POC TCO2, Arterial 21(L) 23 - 27 mmol/L 10/25/2024 11:57 PM EDT [facility] Blood, Arterial 10/25/2024 1 1:40 PM EDT 10/25/2024 11:57 PM EDT us Semaj Mcnair III, MD POINT OF CARE TEST ORDERABLES Final Result Performing Organization Address [facility] Co de Phone Number [facility] [address] [facility] [place]. [address] * POC O2 SAT (10/25/2024 11:40 PM EDT) Pathologist [facility] POC O2 Saturation, Arterial 98 95 - 98 % 10/25/2024 11:57 PM EDT [facility] Blood, Arterial 10/25/2024 1 1:40 PM EDT 10/25/2024 11:57 PM EDT us Semaj Mcnair III, MD POINT OF CARE TEST ORDERABLES Final Result Performing Organization Address City/[facility] Co de Phone Number [facility] [address] [facility] [place]. [address] * (ABNORMAL) POC Base Excess (10/25/2024 11:40 PM EDT) POC Base Excess, Arterial -6(L) -2 - 3 mmol/L 10/25/2024 11:57 PM EDT [facility] Blood, Arterial 10/25/2024 1 1:40 PM EDT 10/25/2024 11:57 PM EDT us Semaj Mcnair III, MD POINT OF CARE TEST ORDERABLES Final Result [facility] [address] [employer] [facility]. [address] * (ABNORMAL) POC HCO3 (10/25/2024 11:40 PM EDT) POC HCO3, Arterial 20(L) 22 - 26 mmol/L 10/25/2024 11:57 PM EDT [facility] Blood, Arterial 10/25/2024 1 1:40 PM EDT 10/25/2024 11:57 PM EDT us Semaj Mcnair III, MD POINT OF CARE TEST ORDERABLES Final Result Performing Organization Address [facility] Co de Phone Number [facility] [address] [employer] [facility]. [address] * (ABNORMAL) POC PO2 (10/25/2024 11:40 PM EDT) POC pO2, Arterial 107(H) 80 - 100 mm Hg 10/25/2024 11:57 PM EDT [facility] Blood, Arterial 10/25/2024 1 1:40 PM EDT 10/25/2024 11:57 PM EDT us Semaj Mcnair III, MD POINT OF CARE TEST ORDERABLES Final Result [facility] [address] [place] [employer] [facility]. [address] * POC PCO2 (10/25/2024 11:40 PM EDT) POC pCO2, Arterial 41 35 - 45 mm Hg 10/25/2024 11:57 PM EDT [facility] Blood, Arterial 10/25/2024 1 1:40 PM EDT 10/25/2024 11:57 PM EDT us Semaj Mcnair III, MD POINT OF CARE TEST ORDERABLES Final Result Performing Organization Address [facility]/ZIP Co de Phone Number [facility] [address] [employer] [facility]. [address] * (ABNORMAL) POC pH (10/25/2024 11:40 PM EDT) POC pH, Arterial 7.29(L) 7.35 - 7.45 10/25/2024 11:57 PM EDT [facility] Blood, Arterial 10/25/2024 1 1:40 PM EDT 10/25/2024 11:57 PM EDT us Semaj Mcnair III, MD POINT OF CARE TEST ORDERABLES Final Result Performing Organization Address [facility] Co de Phone Number [facility] [address] * Urine culture (10/25/2024 11:08 PM EDT) Culture Result <1,000 cfu/mL [facility] Culture Result Skin/Urogeni rony Mckayla. No Further Workup. [facility] Newly Placed Berkowitz Urine URINE SPECIMEN / Unknown 10/25/2024 11:08 PM EDT Comment:urine culture Narrative [facility] - 10/28/2024 9:59 AM EDT urine culture urine culture us Semaj Mcnair III, MD MICROBIOLOGY - GENE RAL ORDERABLES Final Result Performing Organization Address City/[facility] Co de Phone Number [facility] [address] [employer] [facility]. [address] * X-ray Portable Chest (10/25/2024 10:19 PM EDT) Anatomical Region Laterality Modality Chest Radiographic Rachel ging 10/25/2024 9:56 PM EDT Impressions 10/25/2024 10:38 PM EDT IMPRESSION: Streaky bibasilar parenchymal opacities, likely representing atelectasis. No focal consolidation. Approved by Jnoy Lakhani DO on 10/25/2024 10:22 PM EDT [...] 10/25/2024 10:38 PM EDT Leandra Og MD IMCelestina DIAGNOSTIC IMAGING ORDERABLES Final Result * Lactic Acid, STAT (10/25/2024 10:17 PM EDT) Lactate 1.6 0.5 - 2.2 mmol/L 10/25/2024 10:39 PM EDT [facility] Plasma 10/25/2024 10:1 7 PM EDT 10/25/2024 10:17 PM EDT Ben Blake MD LAB BLOOD ORDERABLES Final Re sult Performing Organization Address [facility]/ZIP Co de Phone Number [facility] [address] [place] [address]. [address] * (ABNORMAL) Ferritin (10/25/2024 10:17 PM EDT) Ferritin 623.2(H) 23.9 - 336.2 ng/mL 10/25/2024 11:02 PM EDT [facility] Serum 10/25/2024 10:1 7 PM EDT 10/25/2024 10:17 PM EDT Leandra Og MD LAB BLOOD ORDERABLES F inal Result Performing Organization Address [facility] Co de Phone Number [facility] [address] [facility] [place]. [address] * Iron Studies (Iron + TIBC) (10/25/2024 10:17 PM EDT) Iron 128 50 - 212 ug/dL 10/25/2024 10:44 PM EDT [facility] % Iron Saturation SEE COMMENT 15.0 - 55.0 % 10/25/2024 10:44 PM EDT [facility] Comment:Unable to calculate result because contributing result outside reportable range.. TIBC SEE COMMENT 261 - 462 ug/dL 10/25/2024 10:44 PM EDT [facility] Comment:Unable to calculate result because contributing result outside reportable range.. Serum 10/25/2024 10:1 7 PM EDT 10/25/2024 10:17 PM EDT Leandra Og MD LAB BLOOD ORDERABLES F inal Result [facility] [address] * PTH (10/25/2024 10:17 PM EDT) PTH 36.0 12.0 - 88.0 pg/mL 10/25/2024 11:01 PM EDT [facility] Serum 10/25/2024 10:1 7 PM EDT 10/25/2024 10:17 PM EDT Leandra Og MD LAB BLOOD ORDERABLES F inal Result [facility] [address] [employer] [facility]. [address] * HIV 1+2 Antibody/Antigen with Reflex (10/25/2024 10:17 PM EDT) HIV 1+2 AB/AGN Nonreactive Nonreactive 10/25/2024 11:03 PM EDT [facility] Serum 10/25/2024 10:1 7 PM EDT 10/25/2024 10:16 PM EDT Narrative [facility] - 10/25/2024 11:03 PM EDT \HIVRNR Leandra Og MD LAB BLOOD ORDERABLES F inal Result Performing Organization Address City/[facility]/ZIP Co de Phone Number [facility] [address] [employer] [facility]. [address] * Hepatitis B Core Antibody (10/25/2024 10:17 PM EDT) Hep B Core Total Ab Nonreactive Nonreactive 10/25/2024 11:07 PM EDT [facility] Comment:Health Department no tified in accordance with reportable infectious disease guidelines. Serum 10/25/2024 10:1 7 PM EDT 10/25/2024 10:17 PM EDT Narrative [facility] - 10/25/2024 11:07 PM EDT A nonreactive final interpretation indicates that anti-HBc antibodies were not detected in the sample; it is possible that the individual is not infected with HBV. us Leandra Og MD LAB BLOOD ORDERABLES F inal Result Performing Organization Address City/[facility]/ZIP Co de Phone Number [facility] [address] [employer] [facility] [employer] [facility]. [address] * Hepatitis C Antibody (10/25/2024 10:17 PM EDT) Pathologist [facility] HCV Ab Nonreactive Nonreactive 10/25/2024 11:16 PM EDT [facility] Comment:Health Department no tified in accordance with reportable infectious disease guidelines. Serum 10/25/2024 10:1 7 PM EDT 10/25/2024 10:17 PM EDT Narrative [facility] - 10/25/2024 11:16 PM EDT Antibodies to HCV not detected; does not exclude the possibility of exposure to HCV. us Leandra Og MD LAB BLOOD ORDERABLES F inal Result Performing Organization Address [facility] Co de Phone Number [facility] [address] [facility] [place]. [address] * (ABNORMAL) Hepatitis B Surface Antibody, Quantitati (10/25/2024 10:17 PM EDT) Pathologist [facility] HBSAB NUMBER 10.70(H) 0.00 - 9.99 mIU/mL 10/25/2024 11:52 PM EDT [facility] Hep B S Ab Equivocal (A) Nonreactive 10/25/2024 11:52 PM EDT [facility] Serum 10/25/2024 10:1 7 PM EDT 10/25/2024 10:17 PM EDT us Leandra Og MD LAB BLOOD ORDERABLES F inal Result Performing Organization Address City/[facility]/ZIP Co de Phone Number [facility] [address] [facility] [place]. [address] * Hepatitis B surface antigen (10/25/2024 10:17 PM EDT) Hep B Surface Ag Nonreactive Nonreactive 10/25/2024 11:12 PM EDT [facility] Comment:Health Department no tified in accordance with reportable infectious disease guidelines. Serum 10/25/2024 10:1 7 PM EDT 10/25/2024 10:17 PM EDT Narrative [facility] - 10/25/2024 11:12 PM EDT Specimen is considered negative for HBsAg. us Leandra Og MD LAB BLOOD ORDERABLES F inal Result Performing Organization Address [facility] Co de Phone Number [facility] [address] [facility] [place]. [address] * Hepatitis A Antibody Total (10/25/2024 10:17 PM EDT) Anti-HAV Total (IgG + IgM) Nonreactive 10/25/2024 11:13 PM EDT [facility] Serum 10/25/2024 10:1 7 PM EDT 10/25/2024 10:17 PM EDT Narrative [facility] - 10/25/2024 11:13 PM EDT HAV antibodies not detected us Leandra Og MD LAB BLOOD ORDERABLES F inal Result Performing Organization Address City/[facility]/ZIP Co de Phone Number [facility] [address] [facility] [place]. [address] * (ABNORMAL) Hepatic Function Panel (10/25/2024 10:17 PM EDT) Total Bilirubin 9.1(H) 0.0 - 1.5 mg/dL 10/25/2024 10:47 PM EDT [facility] Bilirubin, Direct 4.58(H) 0.00 - 0.40 mg/dL 10/25/2024 10:47 PM EDT [facility] AST 51(H) 13 - 39 U/L 10/25/2024 10:47 PM EDT [facility] ALT 23 7 - 52 U/L 10/25/2024 10:47 PM EDT [facility] Alkaline Phosphatase 144(H) 36 - 125 U/L 10/25/2024 10:47 PM EDT [facility] Total Protein 5.5(L) 6.4 - 8.9 g/dL 10/25/2024 10:47 PM EDT [facility] Albumin 3.5 3.5 - 5.7 g/dL 10/25/2024 10:47 PM EDT [facility] Bilirubin, Indirect 4.52(H) 0.00 - 1.10 mg/dL 10/25/2024 10:47 PM EDT [facility] Plasma 10/25/2024 10:1 7 PM EDT 10/25/2024 10:17 PM EDT us Leandra Og MD LAB BLOOD ORDERABLES F inal Result [facility] [address] [place] [address], [facility] * (ABNORMAL) Renal Function Panel w/EGFR (10/25/2024 10:17 PM EDT) Sodium 137 133 - 146 mmol/L 10/25/2024 10:47 PM EDT [facility] Potassium 2.1(LL) 3.5 - 5.3 mmol/L 10/25/2024 10:47 PM EDT [facility] Comment:Critical Result K:2. 1 Called to and read back by: ALICIA CARCAMO RN at: 10/25/2024 22:47:45 by:NANCY Chloride 100 98 - 110 mmol/L 10/25/2024 10:47 PM EDT [facility] CO2 20(L) 21 - 33 mmol/L 10/25/2024 10:47 PM EDT [facility] Anion Gap 17(H) 3 - 16 mmol/L 10/25/2024 10:47 PM EDT [facility] BUN 74(H) 7 - 25 mg/dL 10/25/2024 10:47 PM EDT [facility] Creatinine 3.87(H) 0.60 - 1.30 mg/dL 10/25/2024 10:47 PM EDT [facility] Glucose 114(H) 70 - 100 mg/dL 10/25/2024 10:47 PM EDT [facility] Calcium 9.3 8.6 - 10.3 mg/dL 10/25/2024 10:47 PM EDT [facility] Phosphorus 5.9(H) 2.1 - 4.7 mg/dL 10/25/2024 10:47 PM EDT [facility] Albumin 3.5 3.5 - 5.7 g/dL 10/25/2024 10:47 PM EDT [facility] Osmolality, Calculated 307(H) 278 - 305 mOsm/kg 10/25/2024 10:47 PM EDT [facility] EGFR 19 10/25/2024 10:47 PM EDT [facility] Comment:As of 2021, the [...] MD LAB BLOOD ORDERABLES F inal Result [facility] [address] * (ABNORMAL) APTT, NO ANTICOAGULANT (10/25/2024 10:17 PM EDT) aPTT 41.7(H) 25.5 - 35.0 seconds 10/25/2024 10:36 PM EDT [facility] Plasma 10/25/2024 10:1 7 PM EDT 10/25/2024 10:17 PM EDT Leandra Og MD LAB BLOOD ORDERABLES F inal Result Performing Organization Address [facility] Co de Phone Number [facility] [address] * (ABNORMAL) Protime-INR (10/25/2024 10:17 PM EDT) Protime 21.7(H) 12.1 - 15.1 seconds 10/25/2024 10:35 PM EDT [facility] INR 1.8(H) 0.9 - 1.1 10/25/2024 10:35 PM EDT [facility] Comment: RECOMMENDED THERAPEUTIC RANGES USING INR : Stable oral anticoagulant therapy: 2.0 - 3.0 Mechanical prosthetic heart valve: 2.5 - 3.5 Recurrent acute myocardial infarction: 2.5 - 3.5 Plasma 10/25/2024 10:1 7 PM EDT 10/25/2024 10:17 PM EDT Leandra Og MD LAB BLOOD ORDERABLES F inal Result Performing Organization Address [facility] Co de Phone Number [facility] [address] [facility] [place]. [address] * (ABNORMAL) Differential (10/25/2024 10:17 PM EDT) Differential Comments See Note 10/25/2024 10:54 PM EDT [facility] Comment: _Platelets Appear Decreased _Platelet Morphology Normal Scan Result PERFORMED 10/25/2024 10:54 PM EDT [facility] Neutrophils Relative 79.8 40.0 - 80.0 % 10/25/2024 10:54 PM EDT [facility] Lymphocytes Relative 9.6(L) 15.0 - 45.0 % 10/25/2024 10:54 PM EDT [facility] Monocytes Relative 8.9 0.0 - 12.0 % 10/25/2024 10:54 PM EDT [facility] Eosinophils Relative 1.3 0.0 - 8.0 % 10/25/2024 10:54 PM EDT [facility] Basophils Relative 0.4 0.0 - 1.0 % 10/25/2024 10:54 PM EDT [facility] nRBC 0 0 - 0 /100 WBC 10/25/2024 10:54 PM EDT [facility] Neutrophils Absolute 4,948 1,520 - 8,640 /uL 10/25/2024 10:54 PM EDT [facility] Lymphocytes Absolute 595 570 - 4,860 /uL 10/25/2024 10:54 PM EDT [facility] Monocytes Absolute 552 0 - 1,296 /uL 10/25/2024 10:54 PM EDT [facility] Eosinophils Absolute 81 0 - 864 /uL 10/25/2024 10:54 PM EDT [facility] Basophils Absolute 25 0 - 108 /uL 10/25/2024 10:54 PM EDT [facility] PLT Morphology Platelet morphology appears normal 10/25/2024 10:54 PM EDT [facility] Whole Blood 10/25/2024 10:1 7 PM EDT 10/25/2024 10:17 PM EDT us Leandra Og MD LAB BLOOD ORDERABLES F inal Result [facility] [address] * (ABNORMAL) CBC (10/25/2024 10:17 PM EDT) WBC 6.2 3.8 - 10.8 10E3/uL 10/25/2024 10:54 PM EDT [facility] RBC 2.40(L) 4.20 - 5.80 10E6/uL 10/25/2024 10:54 PM EDT [facility] Hemoglobin 8.3(L) 13.2 - 17.1 g/dL 10/25/2024 10:54 PM EDT [facility] Hematocrit 23.7(L) 38.5 - 50.0 % 10/25/2024 10:54 PM EDT [facility] MCV 98.9 80.0 - 100.0 fL 10/25/2024 10:54 PM EDT [facility] MCH 34.6(H) 27.0 - 33.0 pg 10/25/2024 10:54 PM EDT [facility] MCHC 35.0 32.0 - 36.0 g/dL 10/25/2024 10:54 PM EDT [facility] RDW 17.8(H) 11.0 - 15.0 % 10/25/2024 10:54 PM EDT [facility] Platelets 56(L) 140 - 400 10E3/uL 10/25/2024 10:54 PM EDT [facility] Comment: Specimen checked for clots. None detected. Slide Reviewed for PLT Clumps. None Seen. Platelet Estimate Decreased 10/25/2024 10:54 PM EDT [facility] MPV 8.1 7.5 - 11.5 fL 10/25/2024 10:54 PM EDT [facility] Whole Blood 10/25/2024 10:1 7 PM EDT 10/25/2024 10:17 PM EDT Narrative [facility] - 10/25/2024 10:54 PM EDT Peripheral blood smear was scanned per review criteria approved by the laboratory regional medical director. us Leandra Og MD LAB BLOOD ORDERABLES F inal Result [facility] [address] [place] [address], [facility] * Donor Specific Antibody (DSA) (10/25/2024 10:00 PM EDT) AntiDonor Antibodies The request and specimen(s) for this test have been received and transported to the [facility] at [address] [place] [address]. The [facility] will report results directly to the client. 10/25/2024 10:20 PM EDT [facility] Comment:Testing performed by [facility], [facility], [address] [place] [address]. The [facility] report has been forwarded to the appropriate ordering location. Please refer to this report for patient results. Serum 10/25/2024 10:0 0 PM EDT 10/25/2024 10:20 PM EDT Leandra Og MD LAB BLOOD ORDERABLES F inal Result [facility] [address] [place], [place] [address] * (ABNORMAL) Venous Blood Gas, Line/Syringe (10/25/2024 10:00 PM EDT) PH-Line Draw 7.38 7.32 - 7.42 10/25/2024 10:08 PM EDT [facility] PCO2-Line Draw 33(L) 41 - 51 mm Hg 10/25/2024 10:08 PM EDT [facility] PO2-Line Draw 33 25 - 40 mm Hg 10/25/2024 10:08 PM EDT [facility] HCO3-Line Draw 20(L) 24 - 28 mmol/L 10/25/2024 10:08 PM EDT [facility] CO2 Content-Line Draw 21(L) 25 - 29 mmol/L 10/25/2024 10:08 PM EDT [facility] Base Excess-Line Draw -5.0(L) -2.0 - 3.0 mmol/L 10/25/2024 10:08 PM EDT [facility] %HBO2-Line Draw 53.8 40.0 - 70.0 % 10/25/2024 10:08 PM EDT [facility] Carboxyhgb-Ludivina e Draw 1.9 % 10/25/2024 10:08 PM EDT [facility] Comment: CARBOXYHEMOGLOBIN (CO) REFERENCE RANGES: Non-Smokers: <2 % Smokers: <8 % TOXIC: >20 % Methemoglobin- Line Draw 0.2 0.0 - 1.5 % 10/25/2024 10:08 PM EDT [facility] Reduced Hemoglobin-Ludivina e Draw 44.1(H) 0.0 - 5.0 % 10/25/2024 10:08 PM EDT [facility] Venous, Line Draw 10/25/2024 10:00 PM EDT 10/25/2024 10:04 PM EDT Leandra Og MD LAB BLOOD ORDERABLES F inal Result Performing Organization Address [facility] Co de Phone Number [facility] [address] * (ABNORMAL) POC Glucose Monitoring Device (10/25/2024 9:56 PM EDT) [facility] POC Glucose Monitoring Device 103(H) 70 - 100 mg/dL 10/25/2024 9:58 PM EDT [facility] Blood 10/25/2024 9:56 PM EDT 10/25/2024 9:57 PM EDT Semaj Mcnair III, MD POINT OF CARE TEST ORDERABLES Final Result Performing Organization Address [facility] Co de Phone Number [facility] [address] * ECG 12 lead (MUSE) (10/25/2024 9:34 PM EDT) 10/25/2024 9:34 PM EDT Narrative MUSE - 10/27/2024 10:08 AM EDT Ventricular Rate: 97 BPM Atrial Rate: 86 BPM QRS Duration: 106 ms QT: 532 ms QTc: 675 ms P [place]: 38 degrees R [place]: -29 degrees T [place]: 32 degrees Diagnosis Line: Critical Test Result: Long QTc , AV Block ^ SINUS RHYTHM WITH PREMATURE VENTRICULAR COMPLEXES ^ PROLONGED QT ^ NONSPECIFIC ST AND T WAVE CHANGES ^ ABNORMAL ECG ^ ^ Confirmed by MD HA, [facility] ([id number]) on 10/27/2024 10:08:26 AM us Leandra Og MD ECG ORDERABLES Final Result Performing Organization Address [facility] Co de Phone Number MUSE * Hepatitis C RNA, Quant Reflex to Genotyp (10/25/2024 8:18 PM EDT) [facility] Units Not Detected IU/mL 10/27/2024 11:03 AM EDT [facility] Comment:Test methodology for HCV RNA quantification is an FDA-approved nucleic acid amplification assay. The Lower Limit of Quantitation (LLOQ) is 15 IU/mL. The linear range of the assay is 15-100,000,000 IU/mL. The Limit of Detection (LoD) is 12.0 IU/mL for EDTA plasma. The reference range is Not Detected. IU log10 See Note log 10 IU/mL 10/27/2024 11:03 AM EDT [facility] Comment:HCV RNA not detected . Plasma 10/25/2024 8:18 PM EDT 10/25/2024 10:27 PM EDT us Leandra Og MD LAB BLOOD ORDERABLES F inal Result [facility] [address] [place] [address], [facility] * Urinalysis w/Rfl to Microscopic (10/25/2024 8:18 PM EDT) Color, UA Yellow Yellow,Straw 10/25/2024 10:38 PM EDT [facility] Clarity, UA Clear Clear 10/25/2024 10:38 PM EDT [facility] Specific [place], UA 1.010 1.005 - 1.035 10/25/2024 10:38 PM EDT [facility] pH, UA 6.0 5.0 - 8.0 10/25/2024 10:38 PM EDT [facility] Protein, UA Negative Negative mg/dL 10/25/2024 10:38 PM EDT [facility] Glucose, UA Negative Negative mg/dL 10/25/2024 10:38 PM EDT [facility] Ketones, UA Negative Negative mg/dL 10/25/2024 10:38 PM EDT [facility] Bilirubin, UA Negative Negative 10/25/2024 10:38 PM EDT [facility] Blood, UA Negative Negative 10/25/2024 10:38 PM EDT [facility] Nitrite, UA Negative Negative 10/25/2024 10:38 PM EDT [facility] Urobilinogen, UA <2.0 0.2 - 1.9 mg/dL 10/25/2024 10:38 PM EDT [facility] Leukocyte Esterase, UA Negative Negative 10/25/2024 10:38 PM EDT [facility] Urine 10/25/2024 8:18 PM EDT 10/25/2024 10:35 PM EDT [facility] - 10/25/2024 10:38 PM EDT Microscopic testing is not performed when the dipstick is negative for blood, leukocyte, protein and nitrite. Leandra Og MD URINE ORDERABLES Final Result [facility] [address] * Toxoplasma gondii antibody, IgG (10/25/2024 8:18 PM EDT) Pathologist [facility] Toxoplasma Gondii IgG <3.0 0.0 - 7.1 IU/mL 10/27/2024 7:55 AM EDT [facility] Comment: Negative <7.2 Equivocal 7.2 - 8.7 Positive >8.7 Serum 10/25/2024 8:18 PM EDT 10/27/2024 8:06 AM EDT [facility] - 10/27/2024 8:06 AM EDT PERFORMED AT: [facility] [address] [id number] [employer] CONSULTANT: Bassam Khalil, PhD PHONE: [phone] Leandra Og MD LAB BLOOD ORDERABLES F inal Result Performing Organization Address City/[facility]/ZIP Co de Phone Number [facility]. [address] * Antibody Screen (10/25/2024 7:46 PM EDT) Antibody Screen Negative 10/25/2024 10:41 PM EDT [facility] Blood 10/25/2024 7:46 PM EDT 10/25/2024 9:54 PM EDT [facility] - 10/25/2024 10:44 PM EDT Testing performed by [facility] Transfusion Service Ben Blake MD BLOOD BANK TEST ORDERABLES Fi nal Result [facility] [address] * ABO/Rh (10/25/2024 7:46 PM EDT) ABO Grouping O 10/25/2024 10:23 PM EDT [facility] Rh Type Positive 10/25/2024 10:23 PM EDT [facility] Blood 10/25/2024 7:46 PM EDT 10/25/2024 9:54 PM EDT us Ben Blake MD BLOOD BANK TEST ORDERABLES Fi nal Result [facility] [address] * (ABNORMAL) TEG-Standard Global Hemostasis (Rapid TEG with Heparin Effect, Contains a Baseline TEG) (10/25/2024 7:46 PM EDT) Citrated Kaolin Reaction Time (TEGHEPARINASE) 8.4 4.6 - 9.1 minutes 10/25/2024 10:49 PM EDT [facility] Citrated Rapid Teg Maximum Amplitude (TEGHEPARINASE) <40.0(L) 52.0 - 70.0 mm 10/25/2024 10:49 PM EDT [facility] Citrated Functional Fibrinogen Maximum Amplitude (TEGHEPARINASE) 6.7(L) 15.0 - 32.0 mm 10/25/2024 10:49 PM EDT [facility] Citrated Kaolin W/Heparinase Reaction Time (TEGHEPARINASE) 8.1 4.3 - 8.3 minutes 10/25/2024 10:49 PM EDT [facility] Citrated Kaolin K-Time (TEGHEPARINASE) 2.5(A) 0.8 - 2.1 minutes 10/25/2024 10:49 PM EDT [facility] Citrated Kaolin Angle (TEGHEPARINASE) 65.7(A) 63.0 - 78.0 degrees 10/25/2024 10:49 PM EDT [facility] Citrated Kaolin Maximum Amplitude (TEGHEPARINASE) <40.0(L) 52.0 - 69.0 mm 10/25/2024 10:49 PM EDT [facility] Citrated Functional Fibrinogen- Fibrinogen Level (TEGHEPARINASE) 159.5(L) 278.0 - 581.0 mg/dL 10/25/2024 10:49 PM EDT [facility] Whole Blood (Citrate) 10/25/2024 7:46 PM EDT 10/25/2024 10:15 PM EDT us Ben Blake MD LAB BLOOD ORDERABLES Final Re sult [facility] [address] [place] [address], [facility] documented in this encounter Visit Diagnoses Diagnosis Acute kidney injury superimposed on CKD (CMS-HCC)- Primary Prophylactic antibiotic Encounter for long-term (current) use of antibiotics Prolonged QT interval Nonspecific abnormal electrocardiogram (ECG) (EKG) Immunosuppression (CMS-HCC) Abdominal pain, unspecified abdominal location Acute kidney injury superimposed on CKD (CMS-HCC) Cirrhosis of liver with ascites, unspecified [...] 9:20 PM EDT 100 mg heparin (porcine) 1,000 unit/mL 10,000 Units in sodium chloride 0.9 % 1,000 mL IRRIGATION As needed, Starting on Sun10/27/24 at 0340, Intra-op Given 10/27/2024 3:40 AM EDT 10,000 Units Other heparin (porcine) [...] PM EDT 7 Units Ri ght Arm lactated Ringers irrigation solution As needed, Starting on Sun10/27/24 at 0335, Intra-op Given 10/27/2024 3:35 AM EDT 3,000 mLs Oth er levothyroxine (SYNTHROID) tablet 75 mcg 75 mcg, [...] Given 11/01/2024 9:19 PM EDT 1,300 mg sterile water irrigation As needed, Starting on Sun10/27/24 at 0335, Intra-op Given 10/27/2024 3:35 AM EDT 1,000 mLs Oth er sulfamethoxazole-trimethoprim (BACTRIM) 400-80 mg per tablet 1 [...] (2 times per day), First dose on 11/02/24 at 1130 1219 (Given - Provider: Paulette [...] movements)0900 (Automatically Held - Provider: Sveta Judge MD)2227 (Unheld by provider - Provider: Automatic Discharge [...] MAY BE SPLIT 1018 (Given - Provider: Pualette Flannery RN) potassium chloride (KLOR-CON M20) CR [...] Gale, ЮЛИЯ) 1019 (Given - Provider: Paulette Flannery, ЮЛИЯ)2120 (Given - Provider: Yvonne Gale, ЮЛИЯ) 1142 (Given - Provider: Paulette Flannery [...] oral. 0149 (Given - Provider: Vandana Vilchis, RN)0616 (Given - Provider: Vandana Vilchis, ЮЛИЯ) [...] documented as of this encounter Care Teams [employer] Relationship Specialty Start Date End Date Enedina Mcguire NP [address] [place] [address] PCP - General Internal Medicine 10/05/24 documented as of this encounter
--- OUTSIDE RECORDS SUMMARY | 2024-10-27 02:34 | XMS_ITS | Encounter Summary ---
Author Organization [facility] Address [facility] [place] [address] Care Team Providers Care Ship Self Defense System Mk1 Operator Name Role Phone Enedina Mcguire NP Primary Care Provider [phone] Source Comments This information has been disclosed [...] release of HIV test results or diagnoses. [id number] Reason for Visit * Auth/Cert (Routine) Specialty Diagnoses / Procedures Referred By Shane t Referred To Contact Surgical Intensive Care Diagnoses Liver transplant recipient (CMS-HCC) cirrhosis and CKD Procedures LIVER-KIDNEY TRANSPLANT [facility] SICU [address] [place] [address] Phone: tel: Referral ID Status Reason Start Date Expiration Date Visits Re quested Visits Authorized [id number] 1 1 Encounter Details Date Type Department Care Team (Late st Contact Info) Description 10/27/2024 2:34 AM EDT Anesthesia Event [facility] PERIOP [address] [place] [address] Rocky Manning MD [address] [place] [phone] Con Gramajo MD [address] [place] [address] Anesthesia Record Procedure Summary Procedure Name Responsible [...] sodium chloride 0.9% 1 00 mL IVPB (Ixru0Xcf) 1 g cefTRIAXone (ROCEPHIN) 2 g in sodium chl oride 0.9 % 100 mL Addb6Udg 2 g electrolyte-r (pH 7.4)(NORMOSOL-R pH 7.4 [...] Sounds Confirmed 10/26/24 0622 by Martha Phillip, JEWEL LATHE OPERATOR 10/27/24 1310 by Chinedu Almeida, JEWEL LATHE OPERATOR Drain 10/27/24; 0636; Bulb ; Abdomen; [...] the past 12 months has th e [employer], gas, oil, or water [employer] threatened to shut off services in your [...] living in a mcc (including now)? No 10/29/2024 Yearly Questionnaire Answer [...] Blake MD - 10/26/2024 8:01 PM EDT [facility] DEPARTMENT OF ANESTHESIOLOGY PRE-PROCEDURAL EVALUATION Julien Anderson is a 39 y.o. year old male presenting for: Procedure(s): TRANSPLANT KIDNEY with bile duct reconstruction Surgeon: Harvey Domínguez III, MD Chief Complaint cirrhosis and CKD; Liver transplant recipient ([facility]-HCC) EtOH cirrhosis decompensated by esophageal varices, [...] dysrhythmias, angina, orthopnea. ECG reviewed. ROS comment: [facility] 10/14/24: IMPRESSIONS: - Patent coronary arteries [...] is no recent study available for direct zpyg-pr-jihk comparison. Stress echo 10/09/24: - Left ventricle: [...] at baseline or with provocation, shows no jhvyy-nt-ritl atrial level shunt. - Pulmonary arteries: Systolic [...] Resource Strain: Low Risk (07/09/2024) Received from [facility] Overall Financial Resource Strain (CARDIA) [...] Answer (07/14/2024) Received from [facility] [place] of Occupational Health - Occupational Stress Questionnaire Feeling of Stress : Patient unable to answer Social Connections: Patient Unable To Answer (07/14/2024) Received from [facility] Social Connection and Isolation Panel [NHANES] Frequency of Communication with Friends and Family: Patient unable to answer Frequency of Social Gatherings with Friends and Family: Patient unable to answer Attends Adventism Services: Patient unable to answer Active Member [...] at 9:00 PM naloxone (NARCAN) 4 mg/actuation [place] Apply 1 spray in one nostril if [...] Blood products not discussed. Plan discussed with CHEMICAL DEPENDENCY PROFESSIONAL and attending. no trial extubation [1] Allergies Allergen Reactions Adhesive Itching and Rash Tegaderm adhesive on Ivs, pt states its tolerable Duloxetine Other (See Comments) Became Manic documented in this encounter Plan of Treatment Upcoming Encounters Date Type Department Care Team (Late st Contact Info) Description 12/05/2024 8:01 AM EDT Hospital Encounter [facility] ENDOSCOPY [address] [place] [phone] Chris Orosco MD [address] [place] [phone] 12/05/2024 8:01 AM EDT - 12/05/2024 8:31 AM EDT Surgery [facility] ENDOSCOPY [address] [place] [address] Chris Orosco MD [address] [place] [phone] EGD Scheduled Procedures Name Priority Associated Diagnoses Date/Ti me EGD Cirrhosis of liver with ascites, unspecified hepatic cirrhosis type (CMS-HCC) 12/05/2024 8:01 AM EDT documented as of this encounter Visit Diagnoses Diagnosis Cirrhosis of liver with ascites, unspecified hepatic cirrhosis type ([facility]-HCC) * Transfer of Care - Bryce No [...] 0659 10/27/24 07 - 10/28/24 0659 Shift [id number] 3618-0687 2951-4909 24 Hour Total 7325-8498 5852-1777 6533-0296 24 Hour Total INTAKE I.V.(mL/kg) 1450.8(11.8) 999.1(8.2) [...] 1 x 1 x 3 x Albumin 0077 226 7118 Volume (Transfuse Cryoprecipitate Transfusion Rate: Per dept [...] in sodium chloride 0.9 % 100 mL Ruol5Ixp) 20 20 Volume (mL) (methylPREDNISolone sodium succinate (SOLU-medrol) 250 mg in sodium chloride 0.9 % 100 mL IVPB) 100 100 Volume (mL) (AMPicillin 1 g in sodium chloride 0.9% 100 mL IVPB (Gnrc1Opp)) 200.2 100 120 420.1 Volume (mL) (mycophenolate [...] 99.3 99.3 Shift Total(mL/kg) 3124.1(25.5) 4253.7(34.7) 6907(56.4) 24395.8(116.6) OUTPUT Urine(mL/kg/hr) 955(1) 505(0.5) 690(0.7) 2150(0.7) 360 360 Urine 315 315 360 360 Output (mL) (IUC (Berkowitz) Triple-lumen (3-Way) 18 Fr.) 955 488 193 6079 Emesis/NG output 250 600 850 Drainage Output (mL) (NG/OG Tube Orogastric) 250 600 850 Drains 1700 3762 258 6477 Output (mL) (Drain Bilary Abdomen Inferior;Right) 100 150 250 Output (mL) ([REMOVED] Drain 1 Abdomen Right;Superior) 800 192 768 2454 Output (mL) (Drain 2 Left;Superior) 800 369 61 7615 Blood 300 300 Est Blood Loss 300 [...] in sodium chloride 0.9% 100 mL IVPB (Auch0Tol) 1 g, Intravenous, at 200 mL/hr, Every 6 hours scheduled (4 times per day), First dose on Sun10/26/24 at 0630, For 2 days, Dosage may need to be adjusted for renal dysfunction. Full dose is 1g IV q6h Use Xdfd8Egn Adapter - Mix Thoroughly Before Administration New Bag 10/28/2024 1:58 AM EDT 1 g 200 mL/hr Rate/Dose Verify 10/27/2024 7:00 PM EDT 200 mL/ hr New Bag 10/27/2024 6:42 PM EDT 1 g 200 mL/hr angiotensin II (GIAPREZA) 0.005 mg/mL in sodium chloride 0.9 % 500 mL infusion Intravenous, at 0-58.8 mL/hr, Continuous, Starting on [place] 10/26/24 at 1300, Enter on pump as N O DRUG SELECTED Weaning: Once underlying shock sufficiently improved, defined as qpl-zksmtfwaiws-HT-presso r requirement ? 0.2 mcg/kg/min (norepinephrine equivalent) [...] in sodium chloride 0.9 % 100 mL Ahgp6Qjw Intravenous, Administer over 30 Minutes, Continuous - [...] paralyzed: Do not titrate - follow policy [id number]-109-01. Start infusion if unable to maintain goal [...] documented as of this encounter Care Teams Ship Self Defense System Mk1 Operator Relationship Specialty Start Date End Date Enedina Mcguire NP [address] [place] [address] PCP - General Internal Medicine 10/05/24 documented as of this encounter
--- OUTSIDE RECORDS SUMMARY | 2024-11-04 08:40 | XMS_ITS | Encounter Summary ---
Author Organization [facility] Address [address] [place] [id number] Care Team Providers Care Ammonium Sulfate Operator Name Role Phone Enedina Mcguire NP Primary Care Provider + [phone] Maureen Pantoja RN Unavailable Unavail able Source [...] release of HIV test results or diagnoses. [id number] Reason for Visit * Reason Comments Liver Transplant Follow-up Encounter Details Date Type Department Care Team (Late st Contact Info) Description 11/04/2024 8:40 AM EDT Office Visit [facility] at [place] [id number] [facility] [address] [place] [address] Cosmo Pacheco MD [address] [place] [address] [address] [place] [address] Liver transplant recipient (CMS-HCC) (Primary [...] the past 12 months has th e [employer], [employer], oil, or water company threatened to shut [...] Nutrition: patient continues close f/u w/ transplant glassworker. - Bone health: Vit D level to be drawn ~POD#90. - Labs: Labs (CBC w/ diff, renal panel, liver panel, tacro level) twice a week. Lipid panel, [id number] Vit D level to be drawn at [...] management for this patient. Cosmo Pacheco MD Business Banking Relationship Manager of Transplant Surgery [phone] (m) [1] Allergies Allergen Reactions Adhesive Itching [...] Description 12/05/2024 8:01 AM EDT Hospital Encounter [facility] ENDOSCOPY [address] [place] [address] Chris Orosco MD [address] [place] [phone] 12/05/2024 8:01 AM EDT - 12/05/2024 8:31 AM EDT Surgery [facility] ENDOSCOPY [address] [place] [address] Chris Orosco MD [address] [place] [phone] EGD Scheduled Procedures Name Priority Associated Diagnoses [...] documented as of this encounter Care Teams Ammonium Sulfate Operator Relationship Specialty Start Date End Date Enedina Mcguire NP [address] [place] [address] PCP - General Internal Medicine 10/05/24 Maureen Pantoja, ЮЛИЯ Txp Post Coordinator Transplant Hepatology 10/28/24 documented as of this encounter
--- OUTSIDE RECORDS SUMMARY | 2024-11-04 10:10 | XMS_ITS | Encounter Summary ---
Author Organization [facility] Address [facility] [place] [address] Care Team Providers Care Design Consultant Name Role Phone Enedina Mcguire NP Primary Care Provider + [phone] Maureen Pantoja RN Unavailable Unavail able Source [...] release of HIV test results or diagnoses. [id number] Reason for Visit * Reason Comments Kidney Transplant Follow-up Encounter Details Date Type Department Care Team (Late st Contact Info) Description 11/04/2024 10:10 AM EDT Office Visit [facility] Liver Transplant at [facility] [address] [facility] [address] [place] [address] Leisa Juarez MD [facility] 2nd [place] [address] Kidney transplant recipient (Primary Dx); [...] the past 12 months has th e [employer], [employer], oil, or water [employer] threatened to shut off services in [...] living in a jail (including now)? No 10/29/2024 Yearly Questionnaire Answer [...] packing; Surgeon: Harvey Domínguez III, MD; Location: [facility]; Service: Transplant; Laterality: N/A; Family History: [...] Answer (07/14/2024) Received from [facility] [employer] of Occupational Health - Occupational Stress Questionnaire [...] = 12 units lancets (ACCU-CHEK SOFTCLIX LANCETS) [facility] [...] times a day. naloxone (NARCAN) 4 mg/actuation [place] Apply 1 spray in one nostril if [...] Results Component Value Date PTH 36.0 10/25/2024 [id number] 7.1 (L) 10/08/2024 Hemoglobin A1C: Lab Results [...] Encounter [facility] ENDOSCOPY [address] [place] [id number] Chris Orosco MD [address] [place] [address] 12/05/2024 8:01 AM EDT - 12/05/2024 8:31 AM EDT Surgery [facility] ENDOSCOPY [address] [place] [id number] Chris Orosco MD [address] [place] [phone] EGD Pending Results Name Type Priority Associated Diagnoses Date /Time Post Kidney Transplant Urine Culture Microbiology Routine Kidney transplant recipient 11/11/2024 9:13 AM EDT Scheduled Orders Name Type Priority [...] liver with ascites, unspecified hepatic cirrhosis type ([facility]) 12/05/2024 8:01 AM EDT documented as of this encounter Results * (ABNORMAL) Magnesium (11/11/2024 9:13 AM EDT) Magnesium 1.2(L) 1.5 - 2.5 mg/dL 11/11/2024 10:51 AM EDT [facility] Plasma 11/11/2024 9:13 AM EDT 11/11/2024 10:19 AM EDT Yareli Zaragoza [facility] BLOOD ORDERABLES Denisse l Result Performing Organization Address [facility] Co de Phone Number [facility] [address] * Protein / creatinine ratio, urine (11/11/2024 9:13 AM EDT) Creatinine, Urine 71.40 mg/dL 11/11/2024 10:38 AM EDT [facility] Comment:Reference range not established for this test. Total Protein, Ur 28 mg/dL 11/11/2024 10:38 AM EDT [facility] Comment:Reference range not established for this test. Prot/Creat Ratio, Ur 0.39 ratio 11/11/2024 10:38 AM EDT [facility] Urine 11/11/2024 9:13 AM EDT 11/11/2024 10:12 AM EDT Yareli Zaragoza [facility] URINE ORDERABLES Final Re sult Performing Organization Address [facility] Co de Phone Number [facility] [address] * (ABNORMAL) Urinalysis w/Rfl to Microscopic (11/11/2024 9:13 AM EDT) Color, UA Straw Yellow,Straw 11/11/2024 10:36 AM EDT [facility] Clarity, UA Clear Clear 11/11/2024 10:36 AM EDT [facility] Specific [place], UA 1.015 1.005 - 1.035 11/11/2024 10:36 AM EDT [facility] pH, UA 6.0 5.0 - 8.0 11/11/2024 10:36 AM EDT [facility] Protein, UA Negative Negative mg/dL 11/11/2024 10:36 AM EDT [facility] Glucose, UA Negative Negative mg/dL 11/11/2024 10:36 AM EDT [facility] Ketones, UA Negative Negative mg/dL 11/11/2024 10:36 AM EDT [facility] Bilirubin, UA Negative Negative 11/11/2024 10:36 AM EDT [facility] Blood, UA Small(A) Negative 11/11/2024 10:36 AM EDT [facility] Nitrite, UA Negative Negative 11/11/2024 10:36 AM EDT [facility] Urobilinogen, UA <2.0 0.2 - 1.9 mg/dL 11/11/2024 10:36 AM EDT [facility] Leukocyte Esterase, UA Negative Negative 11/11/2024 10:36 AM EDT [facility] RBC, UA 13(H) 0 - 3 /HPF 11/11/2024 10:36 AM EDT [facility] WBC, UA 4 0 - 5 /HPF 11/11/2024 10:36 AM EDT [facility] Urine 11/11/2024 9:13 AM EDT 11/11/2024 10:10 AM EDT Yareli Zaragoza DIRECTOR PRODUCT URINE ORDERABLES Final Re sult Performing Organization Address [facility]/ZIP Co de Phone Number [facility] [address] [facility]. [address] * (ABNORMAL) Magnesium (11/04/2024 8:46 AM EDT) Magnesium 1.0(L) 1.5 - 2.5 mg/dL 11/04/2024 10:06 AM EDT [facility] Plasma 11/04/2024 8:46 AM EDT 11/04/2024 9:32 AM EDT Yareli Zaragoza DIRECTOR PRODUCT LAB BLOOD ORDERABLES Denisse l Result [facility] [address] [facility]. [address] * (ABNORMAL) Post Kidney Transplant Urine Culture (11/04/2024 8:46 AM EDT) Culture Result Enterococcus faecium, Vancomycin Resistant(A) [facility] Comment: 1,000- <10,000 cfu/mL Identified [...] OR DERABLES Final Result Performing Organization Address City/[facility]/ZIP Co de Phone Number [facility] [address] [facility]. [address] * Protein / creatinine ratio, urine (11/04/2024 8:46 AM EDT) Pathologist [facility] Creatinine, Urine 37.30 mg/dL 11/04/2024 2:55 PM EDT [facility] Comment:Reference range not established for this test. Total Protein, Ur 42 mg/dL 11/04/2024 2:55 PM EDT [facility] Comment:Reference range not established for this test. Prot/Creat Ratio, Ur 1.13 ratio 11/04/2024 2:55 PM EDT [facility] Urine 11/04/2024 8:46 AM EDT 11/04/2024 9:32 AM EDT Yareli Zaragoza CNP URINE ORDERABLES Final Re sult Performing Organization Address City/[facility]/ZIP Co de Phone Number [facility] [address] [facility]. [address] * (ABNORMAL) Urinalysis w/Rfl to Microscopic (11/04/2024 8:46 AM EDT) Color, UA Straw Yellow,Straw 11/04/2024 10:07 AM EDT [facility] Clarity, UA Clear Clear 11/04/2024 10:07 AM EDT [facility] Specific [place], UA 1.012 1.005 - 1.035 11/04/2024 10:07 AM EDT [facility] pH, UA 6.5 5.0 - 8.0 11/04/2024 10:07 AM T [facility] Protein, UA Trace(A) Negative mg/dL 11/04/2024 10:07 AM EDT [facility] Glucose, UA Negative Negative mg/dL 11/04/2024 10:07 AM EDT [facility] Ketones, UA Negative Negative mg/dL 11/04/2024 10:07 AM EDT [facility] Bilirubin, UA Negative Negative 11/04/2024 10:07 AM T [facility] Blood, UA Large(A) Negative 11/04/2024 10:07 AM [facility] Nitrite, UA Negative Negative 11/04/2024 10:07 AM [facility] Urobilinogen, UA <2.0 0.2 - 1.9 mg/dL 11/04/2024 10:07 AM EDT [facility] Leukocyte Esterase, UA Negative Negative 11/04/2024 10:07 AM [facility] RBC, UA >100(H) 0 - 3 /HPF 11/04/2024 10:07 AM EDT [facility] WBC, UA 2 0 - 5 /HPF 11/04/2024 10:07 AM [facility] Bacteria, UA Rare(A) None Seen /HPF 11/04/2024 10:07 AM T [facility] Hyaline Casts, UA 3(H) 0 - 2 /LPF 11/04/2024 10:07 AM [facility] Urine 11/04/2024 8:46 AM EDT 11/04/2024 9:33 AM EDT us Yareli Zaragoza DIRECTOR PRODUCT URINE ORDERABLES Final Re sult [facility] [address] [place] [id number], [facility] documented in this encounter [...] documented as of this encounter Care Teams Design Consultant Relationship Specialty Start Date End Date Enedina Mcguire NP [address] [place] [address] PCP - General Internal Medicine 10/05/24 Maureen Pantoja, RN Txp Post Coordinator Transplant Hepatology 10/28/24 documented as of this encounter
--- OUTSIDE RECORDS SUMMARY | 2024-11-11 08:50 | XMS_ITS | Encounter Summary ---
Author Organization [facility] Address [facility] [place] [address] Care Team Providers Care Acid Leveler Name Role Phone Enedina Mcguire NP Primary Care Provider + [phone] Maureen Pantoja RN Unavailable Unavail able Source [...] release of HIV test results or diagnoses. [id number] Reason for Visit * Reason Comments Labs Only Encounter Details Date Type Department Care Team (Late st Contact Info) Description 11/11/2024 8:50 AM EDT Specimen [facility] Outreach Lab [facility] [place] [address] Harvey Domínguez III, MD [facility]0 [facility] [address] [place] [address] Liver replaced by transplant ([facility]); Immunosuppressive management encounter following liver transplant ([facility]); Kidney transplant recipient Social History Tobacco [...] the past 12 months has th e [employer], [employer], oil, or water company threatened to shut [...] Hospital Encounter [facility] ENDOSCOPY [address] [place] [address] Chris Orosco MD [address] [place] [phone] 12/05/2024 8:01 AM EDT - 12/05/2024 8:31 AM EDT Surgery [facility] ENDOSCOPY [address] [place] [address] Chris Orosco MD [address] [place] [phone] EGD Pending Results Name Type Priority Associated Diagnoses Date /Time Post Kidney Transplant Urine Culture Microbiology Routine Kidney transplant recipient 11/11/2024 9:13 AM EDT Scheduled Procedures Name Priority Associated Diagnoses Date/Ti [...] AM EDT [facility] Plasma 11/11/2024 9:13 AM EDT 11/11/2024 10:19 AM EDT us Caron Santos [employer] LAB BLOOD ORDERABLES Denisse l Result [facility] [address] * Protein / creatinine ratio, urine (11/11/2024 9:13 AM EDT) Creatinine, Urine 71.40 mg/dL 11/11/2024 10:38 AM EDT [facility] Comment:Reference range not established for this test. Total Protein, Ur 28 mg/dL 11/11/2024 10:38 AM EDT [facility] Comment:Reference range not established for this test. Prot/Creat Ratio, Ur 0.39 ratio 11/11/2024 10:38 AM EDT [facility] Urine 11/11/2024 9:13 AM EDT 11/11/2024 10:12 AM EDT Caron Santos [employer] URINE ORDERABLES Final Re sult [facility] [address] [place], [place] [address] * (ABNORMAL) Urinalysis w/Rfl to Microscopic (11/11/2024 9:13 AM EDT) Color, UA Straw Yellow,Straw 11/11/2024 10:36 AM EDT [facility] Clarity, UA Clear Clear 11/11/2024 10:36 AM EDT [facility] Specific [place], UA 1.015 1.005 - 1.035 11/11/2024 10:36 AM EDT [facility] pH, UA 6.0 5.0 - 8.0 11/11/2024 10:36 AM EDT [facility] Protein, UA Negative Negative mg/dL 11/11/2024 10:36 AM EDT [facility] Glucose, UA Negative Negative mg/dL 11/11/2024 10:36 AM EDT [facility] Ketones, UA Negative Negative mg/dL 11/11/2024 10:36 AM EDT [facility] Bilirubin, UA Negative Negative 11/11/2024 10:36 AM EDT [facility] Blood, UA Small(A) Negative 11/11/2024 10:36 AM EDT [facility] Nitrite, UA Negative Negative 11/11/2024 10:36 AM EDT [facility] Urobilinogen, UA <2.0 0.2 - 1.9 mg/dL 11/11/2024 10:36 AM EDT [facility] Leukocyte Esterase, UA Negative Negative 11/11/2024 10:36 AM EDT [facility] RBC, UA 13(H) 0 - 3 /HPF 11/11/2024 10:36 AM EDT [facility] WBC, UA 4 0 - 5 /HPF 11/11/2024 10:36 AM EDT [facility] Urine 11/11/2024 9:13 AM EDT 11/11/2024 10:10 AM EDT us Caron Santos [employer] URINE ORDERABLES Final Re sult [facility] [address] [place] [address], [facility] * (ABNORMAL) Differential (11/11/2024 9:13 AM EDT) Neutrophils Relative 69.3 40.0 - 80.0 % 11/11/2024 10:31 AM EDT [facility] Lymphocytes Relative 17.6 15.0 - 45.0 % 11/11/2024 10:31 AM EDT [facility] Monocytes Relative 8.5 0.0 - 12.0 % 11/11/2024 10:31 AM EDT [facility] Eosinophils Relative 2.0 0.0 - 8.0 % 11/11/2024 10:31 AM EDT [facility] Basophils Relative 2.6(H) 0.0 - 1.0 % 11/11/2024 10:31 AM EDT [facility] nRBC 0 0 - 0 /100 WBC 11/11/2024 10:31 AM EDT [facility] Neutrophils Absolute 4,920 1,520 - 8,640 /uL 11/11/2024 10:31 AM EDT [facility] Lymphocytes Absolute 1,250 570 - 4,860 /uL 11/11/2024 10:31 AM EDT [facility] Monocytes Absolute 604 0 - 1,296 /uL 11/11/2024 10:31 AM EDT [facility] Eosinophils Absolute 142 0 - 864 /uL 11/11/2024 10:31 AM EDT [facility] Basophils Absolute 185(H) 0 - 108 /uL 11/11/2024 10:31 AM EDT [facility] Whole Blood 11/11/2024 9:13 AM EDT 11/11/2024 10:19 AM EDT Narrative [facility] - 11/11/2024 10:31 AM EDT Standing orders to be drawn: Every Sunday and before 9am and prior to patient taking morning medications. Liver Transplant Fax results to [phone] Call Critical results to [phone] Harvey Domínguez III, MD LAB BLOOD ORDERABLE S Final Result [facility] [address] [place] [address], [facility] * (ABNORMAL) CBC (11/11/2024 9:13 AM EDT) WBC 7.1 3.8 - 10.8 10E3/uL 11/11/2024 10:31 AM EDT [facility] RBC 3.42(L) 4.20 - 5.80 10E6/uL 11/11/2024 10:31 AM EDT [facility] Hemoglobin 10.6(L) 13.2 - 17.1 g/dL 11/11/2024 10:31 AM EDT [facility] Hematocrit 31.3(L) 38.5 - 50.0 % 11/11/2024 10:31 AM EDT [facility] MCV 91.5 80.0 - 100.0 fL 11/11/2024 10:31 AM EDT [facility] MCH 31.0 27.0 - 33.0 pg 11/11/2024 10:31 AM EDT [facility] MCHC 33.8 32.0 - 36.0 g/dL 11/11/2024 10:31 AM EDT [facility] RDW 20.5(H) 11.0 - 15.0 % 11/11/2024 10:31 AM EDT [facility] Platelets 308 140 - 400 10E3/uL 11/11/2024 10:31 AM EDT [facility] MPV 6.1(L) 7.5 - 11.5 fL 11/11/2024 10:31 AM EDT [facility] Whole Blood 11/11/2024 9:13 AM EDT 11/11/2024 10:19 AM EDT Narrative [facility] - 11/11/2024 10:31 AM EDT Standing orders to be drawn: Every Sunday and before 9am and prior to patient taking morning medications. Liver Transplant Fax results to [phone] Call Critical results to [phone] Harvey Domínguez III, MD LAB BLOOD ORDERABLE S Final Result [facility] [address] [place] [address], [facility] * (ABNORMAL) Renal Function Panel w/EGFR (11/11/2024 9:13 AM EDT) Sodium 141 133 - 146 mmol/L 11/11/2024 10:51 AM EDT [facility] Potassium 4.6 3.5 - 5.3 mmol/L 11/11/2024 10:51 AM EDT [facility] Chloride 108 98 - 110 mmol/L 11/11/2024 10:51 AM EDT [facility] CO2 24 21 - 33 mmol/L 11/11/2024 10:51 AM EDT [facility] Anion Gap 9 3 - 16 mmol/L 11/11/2024 10:51 AM EDT [facility] BUN 27(H) 7 - 25 mg/dL 11/11/2024 10:51 AM EDT [facility] Creatinine 1.14 0.60 - 1.30 mg/dL 11/11/2024 10:51 AM EDT [facility] Glucose 97 70 - 100 mg/dL 11/11/2024 10:51 AM EDT [facility] Calcium 8.6 8.6 - 10.3 mg/dL 11/11/2024 10:51 AM EDT [facility] Phosphorus 4.4 2.1 - 4.7 mg/dL 11/11/2024 10:51 AM EDT [facility] Albumin 3.8 3.5 - 5.7 g/dL 11/11/2024 10:51 AM EDT [facility] Osmolality, Calculated 297 278 - 305 mOsm/kg 11/11/2024 10:51 AM EDT [facility] EGFR 83 11/11/2024 10:51 AM EDT [facility] Comment:As of 2021, the estimated [...] 9:13 AM EDT 11/11/2024 10:19 AM EDT [facility] - 11/11/2024 10:51 AM EDT Standing orders to be drawn: Every Sunday and before 9am and prior to patient taking morning medications. Liver Transplant Fax results to [phone] Call Critical results to [phone] DO NOT REPLACE RENAL PANEL or HEPATIC FUNCTION PANEL w/ CMP, BMP or HEPATIC PROFILE Harvey Domínguez III, MD LAB BLOOD ORDERABLE S Final Result [facility] [address] [place] [address], [facility] * (ABNORMAL) Hepatic Function Panel (11/11/2024 9:13 AM EDT) Total Bilirubin 1.0 0.0 - 1.5 mg/dL 11/11/2024 10:51 AM EDT [facility] Bilirubin, Direct 0.39 0.00 - 0.40 mg/dL 11/11/2024 10:51 AM EDT [facility] AST 15 13 - 39 U/L 11/11/2024 10:51 AM EDT [facility] ALT 26 7 - 52 U/L 11/11/2024 10:51 AM EDT [facility] Alkaline Phosphatase 125 36 - 125 U/L 11/11/2024 10:51 AM EDT [facility] Total Protein 5.9(L) 6.4 - 8.9 g/dL 11/11/2024 10:51 AM EDT [facility] Albumin 3.8 3.5 - 5.7 g/dL 11/11/2024 10:51 AM EDT [facility] Bilirubin, Indirect 0.61 0.00 - 1.10 mg/dL 11/11/2024 10:51 AM EDT [facility] Plasma 11/11/2024 9:13 AM EDT 11/11/2024 10:19 AM EDT Narrative [facility] - 11/11/2024 10:51 AM EDT Standing orders to be drawn: Every Sunday and before 9am and prior to patient taking morning medications. Liver Transplant Fax results to [phone] Call Critical results to [phone] DO NOT REPLACE RENAL PANEL or HEPATIC FUNCTION PANEL w/ CMP, BMP or HEPATIC PROFILE Harvey Domínguez III, MD LAB BLOOD ORDERABLE S Final Result [facility] [address] * Tacrolimus level (11/11/2024 9:13 AM EDT) Tacrolimus (LC-MS) 10.4 3.0 - 15.0 ng/mL 11/11/2024 1:22 PM EDT [facility] Comment:Performed via liquid chromatography tandem [...] AM EDT [facility]arrative [facility] - 11/11/2024 1:22 PM EDT Standing orders to be drawn: Every Sunday and before 9am and prior to patient taking morning medications. Liver Transplant Fax results to [phone] Call Critical results to [phone] us Harvey Domínguez III, MD LAB BLOOD ORDERABLE S Final Result [facility] [address] documented in this encounter Visit Diagnoses Diagnosis Liver replaced by transplant ([facility]) Liver replaced by transplant Immunosuppressive management encounter following liver transplant ([facility]) Kidney transplant recipient Cirrhosis of liver with ascites, unspecified hepatic cirrhosis type (CMS-HCC) documented in this encounter Additional Health Concerns 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
--- OUTSIDE RECORDS SUMMARY | 2024-11-11 10:00 | XMS_ITS | Encounter Summary ---
Author Organization [facility] Address [address] [place] [address]36 Care Team Providers Care Hosting Engineer Name Role Phone Enedina Mcguire NP Primary Care Provider + [phone] Maureen Pantoja RN Unavailable Unavail able Source [...] release of HIV test results or diagnoses. [id number] Reason for Visit * Reason Comments Liver Transplant Follow-up Encounter Details Date Type Department Care Team (Late st Contact Info) Description 11/11/2024 10:00 AM EDT Office Visit [facility] Liver Transplant at [address] [address] [place] [address] Cosmo Pacheco MD [address] [place], [place] [address] [place] [address] Harvey Domínguez III, MD [address] [place] [address] 3200 [place] [address] Encounter for therapeutic drug monitoring [...] the past 12 months has th e [employer], [employer], oil, or water company threatened to shut [...] = 12 units lancets (ACCU-CHEK SOFTCLIX LANCETS) [facility] Use to test [...] times a day. naloxone (NARCAN) 4 mg/actuation [place] Apply 1 spray in one nostril if [...] Nutrition: patient continues close f/u w/ transplant principal bioinformatics specialist. - Bone health: Vit D level to be drawn ~POD#90. - Labs: Labs (CBC w/ diff, renal panel, liver panel, tacro level) twice a week. Lipid panel, [id number] Vit D level to be drawn at POD#90, HgbA1C and Vit D level to be drawn at POD#180. - Follow up: RTC 2 weeks Kemar Sahni MD, Fellow, Multiorgan Abdominal Transplant Surgery. [facility]. [1] Allergies Allergen Reactions Adhesive [...] Description 12/05/2024 8:01 AM EDT Hospital Encounter [facility] ENDOSCOPY [address] [place] [address] Chris Orosco MD [address] [place] [phone] 12/05/2024 8:01 AM EDT - 12/05/2024 8:31 AM EDT Surgery [facility] ENDOSCOPY [address] [place] [address] Chris Orosco MD [address] [place] [phone] EGD Scheduled Procedures Name Priority Associated Diagnoses [...] documented as of this encounter Care Teams Hosting Engineer Relationship Specialty Start Date End Date Enedina Mcguire NP [address] [place] [address] PCP - General Internal Medicine 10/05/24 Maureen Pantoja, ЮЛИЯ Txp Post Coordinator Transplant Hepatology 10/28/24 documented as of this encounter
--- OUTSIDE RECORDS SUMMARY | 2024-11-13 08:44 | XMS_ITS | Encounter Summary ---
Author Organization [facility] Address [address] [place] [address] Care Team Providers Care Director Agricultural Services Name Role Phone [place], Lj Nova APRN Unavailable [phone] Enedina Mcguire APRN Primary Care Provider + Encounter Details Date Type Department Care Team ([facility] st Contact Info) Description 09/25/2024 Telephone [facility] Nephrology, Bone & Mineral Metabolism [address] [facility], [address] [place] [address] Chelsy Villanueva Social History Tobacco [...] often do you attend chur ch or bahai services? Patient unable to answer 07/14/2024 Do you belong to any clubs o r organizations such as worship groups, unions, fraternal or athletic groups, or [...] Patient Health Questionnaire-2 Score 2 09/29/2024 [facility] - Occupational Stress Questionnaire Answer Date [...] drink first t deborah in the morning (EYE-SPRAYER HAND) to steady your nerves or to get [...] faxed to [facility] at [phone] * Telephone Encounter - Shelby Rush - 09/30/2024 10:16 AM EDT Clinical Concern/Question Reason for Call: Per [facility] please fax patient's lab order to: [phone] Best contact number: Other: [phone] Optimal time of day to reach caller: [...] Description 12/01/2024 2:20 PM EDT Office Visit [facility] Nephrology, Bone & Mineral Metabolism [address], [address] [place] [address] Yovanny Curran MD [address] [place] [address] 01/08/2025 3:20 PM EDT Office Visit [facility] [address], [address] [place] [address] Vincent Braga MD [address] [place] [address] documented as of this encounter Visit Diagnoses Not on filedocumented in this encounter Additional Health Concerns Assessment Noted Time A fall risk assessment has been complete d for the patient 08/25/2024 2:07 PM EDT A Body Mass Index follow-up plan has been documented for the patient 08/29/2024 9:18 AM EDT documented as of this encounter Care Teams Director Agricultural Services Relationship Specialty Start Date End Date Enedina Mcguire APRN [address] [place] [address] PCP - General 12/04/22 Lj Tapia APRN [address] [place] [address] Referring Physician Gastroenterology 07/18/22 documented as of this encounter
--- OUTSIDE RECORDS SUMMARY | 2024-11-13 08:44 | XMS_ITS | Encounter Summary ---
Author Organization [facility] Address [address] [place] [address] Care Team Providers Care Slash Trimmer Name Role Phone Jony Conde MD Primary Care Provider [phone] Lj Tapia COMMODITY SUPERVISOR Unavailable [phone] Enedina Mcguire COMMODITY SUPERVISOR Primary Care Provider + Nuria Fall TILE CLASSIFIER Unavailable Unavaila ble Encounter Details Date Type Department Care Team (Late Contact Info) Description 07/02/2022 Orders Only External Location [address] [place] [phone] Provider, External Social History Tobacco Use Types [...] Description 12/01/2024 2:20 PM EDT Office Visit [facility] Nephrology, Bone & Mineral Metabolism [address] [place] [address] Yovanny Curran MD [address] [place] [address] 01/08/2025 3:20 PM EDT Office Visit [facility] [address] [place] [address] Vincent Braga MD [address] [place] [phone] documented as of this encounter Procedures Procedure [...] on filedocumented in this encounter Care Teams Slash Trimmer Relationship Specialty Start Date End Date Jony Conde MD [address] [place] [address] [address] [place] [address] PCP - General 07/18/22 12/03/22 Enedina Mcguire APRN [address] [place] [address] PCP - General 12/04/22 Lj Tapia APRN [address] [place] [address] Referring Physician Gastroenterology 07/18/22 Nuria Fall LPN [facility] TCM Nurse 07/24/24 08/23/24 documented as of this encounter
--- OUTSIDE RECORDS SUMMARY | 2024-11-13 08:44 | XMS_ITS | Clinical Summary ---
Author Organization Healthcare Address [address] [place] [address] Care Team Providers Care Elevator Technician Name Role Phone Lj Tapia Rohini RICKS Unavailable [phone] Enedina Mcguire APRN Primary Care Provider + [...] 09/29/2024 2:20 PM EDT Office Visit [facility] Nephrology, Bone & Mineral Metabolism [address], [address] [place] [address] Yovanny Flores MD NADIYA (acute kidney injury) ([facility]) (Primary Dx); Portal hypertension ([facility]); Secondary esophageal varices with bleeding ([facility]) 09/29/2024 Travel 09/25/2024 Telephone [facility] Nephrology, Bone & Mineral Metabolism [email or web address], [address] [place] [address] Chelsy Villanueva 08/25/2024 2:20 PM EDT Office Visit [facility] Nephrology, Bone & Mineral Metabolism [email or web address], [address] [place] [address] Kalina bell, Yovanny Nicholson MD NADIYA (acute kidney injury) ([facility]) (Primary Dx) 08/25/2024 Travel 08/24/2024 Travel 08/21/2024 Telephone [facility] Nephrology, Bone & Mineral Metabolism [address] , [address] [place] [address] Chelsy Villanueva from Last 3 [...] answer 07/14/2024 How often do you attend [facility] or denominational services? Patient unable to answer 07/14/2024 Do you belong to any clubs o r organizations such as confucianism groups, unions, fraternal or athletic groups, or [...] Recorded Patient Health Questionnaire-2 Score 2 09/29/2024 [facility] Stress Questionnaire Answer Date [...] drink first t deborah in the morning (EYE-MANAGING MANAGER) to steady your nerves or to get rid of a hangover? 0 07/19/2024 CAGE Questionnaire Score 2 025 Utilities Answer Date Recorded In the past 12 months has th e electric, gas, oil, or water [employer] threatened to shut off services in your [...] 12/01/2024 2:20 PM EDT Office Visit Professional [facility] Nephrology, Bone & Mineral Metabolism [address], [address] [place] [address] Yovanny Curran MD [address] [place] [address] 01/08/2025 3:20 PM EDT Office Visit [facility] [address], [address] [place] [address] Vincent Braga MD [address] [place] [address] Health Maintenance Due Date Last [...] 2 - 13+ 2-dose series) 10/11/2010 09/13/2010 [id number] Vaccine (4 - 2023- season) 2024 03/17/2021, 07/25/2020, 06/27/2020 [facility]-Influenza Vaccine (#1) 2025 03/12/2024, [facility]- SDOH Screenings 01/14/2025 [facility]-Adult SDOH Screenings 01/14/2025 07/14/2024 [facility]-Depression Screening 09/29/2025 09/29/2024, 09/11 [facility]-DTaP,Tdap,and Td Vaccines (3 - Td or Tdap) 06/03/2028 06/03/2018, 09/13/2010 [facility]-Zoster Vaccines (1 of 2) 2033 09/13/2010 [facility]-Abdominal Aortic Aneurysm (AAA) Screening 2048 07/28/2024, 07/28/2024, 07/29/2022, Additional history exists [facility]-Hepatitis C Screening Completed 2024, 11/14/2023, 08/01/2022 [...] this topic Medical Devices Implanted Type Area Case Manager Specialist Device Identifier Shelf Expiration Date Model / Serial / Lot Concerto Freer Coil-07/03/2022 Implanted:06/15 by Timmy Brunner MD (Quantity not on file) Coil Abdomen Description:Multiple Coil Co ncerto Pgla Freer Detach COILS implanted on 07/03/2022 by Timmy Brunner MD at [facility]--info can be found in Care Everywhere for [facility] as of 11/15/23 Dona Coil-07/03/2022 Implanted:06/15 by Timmy Brunner MD (Quantity not on file) Coil Abdomen [employer] Description:Coil Emb Dona 3.7/Implanted: Qty: 1 on 07/03/2022 by Timmy Brunner MD at [facility] Plate Plate N/A: Neck Plug Vasc Anton Emb Amplatzer Implanted:06/15 by Timmy Brunner MD (Quantity not on file) Plug Other Vein / / [id number] Description:Plug Vasc Anton Em b Ampltz .027 [id number] - [id number] Implanted: Qty: 1 on 07/03/2022 by Timmy Brunner MD at [facility] Stent Gastro Panc 5fr 5cm - [id number] Implanted:Qty: 1 on 11/20/2023 by Devang Mcghee, RN at [facility] Pancreas [employer]-[id number] 08/13/2026 [id number] / / [id number] Procedures Procedure Name Priority Date/Time Associated Diagnosis [...] Reactive Non Reactive 07/14/2024 5:31 PM EST [facility] Comment:Screening for HIV 1 & 2 antibodies, and P24 antigen is NONREACTIVE. No confirmatory testing is required. Blood Venous blood specimen / Unknown Venipuncture / Unknown 07/14/2024 4:31 PM EST 07/14/2024 4:56 PM EST Laureano Salinas APRN, [facility] BLOOD ORDERA BLES Final Result Performing Organization Address City/[facility] Co de Phone Number [facility] [address] [place] [address] * Hepatitis C Antibody (07/14/2024 4:31 PM EST) [facility] Signature Hepatitis C Antibody Negative Negative 07/14/2024 5:27 PM EST [facility] Blood Venous blood specimen / Unknown Venipuncture / Unknown 07/14/2024 4:31 PM EST 07/14/2024 4:54 PM EST Laureano Salinas APRN, [facility] BLOOD ORDERA BLES Final Result Performing Organization Address City/[facility] de Phone Number [facility] [address] [place] [address] from Last 3 Months or Most Recently Relevant to Health Maintenance Insurance [facility] Advance Directives * Full Code (Latest Code Status on File) Date Activated Date Inactivated Comments 07/11/2024 11:04 PM 07/23/2024 6:27 PM Question Answer Comments Patient has decision-making capacity? Yes * Full Code Date Activated Date Inactivated Comments 11/14/2023 10:15 PM 11/27/2023 9:08 PM Question Answer Comments Patient has decision-making capacity? Yes Care Teams Elevator Technician Relationship Specialty Start Date End Date Enedina Mcguire APRN [address] [place] [address] PCP - General 12/04/22 Lj Tapia APRN [address] [place] [address] Referring Physician Gastroenterology 07/18/22
--- OUTSIDE RECORDS SUMMARY | 2024-11-13 08:44 | XMS_ITS | Encounter Summary ---
Author Organization [facility] Address [address] [place] [address] Care Team Providers Care Industrial Automation Engineer Name Role Phone RockwoodLj dixon Rohini RICKS Unavailable [phone] Enedina Mcguire APRN Primary Care Provider + [...] How often do you attend chur or adventist services? Patient unable to answer [...] Recorded Patient Health Questionnaire-2 Score 2 09/29/2024 [facility] - [...] place to sleep or slept in a assisted (including now)? No 11/19/2023 PHQ-9 Answer Date [...] living in a assisted (including now)? 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-JEWELRY MAKING INSTRUCTOR) to steady your nerves or to get [...] -2 Score 2 09/29/2024 1:47 PM EDT aJnice Bryant * Question Answer Date of Assessment [...] Description 12/01/2024 2:20 PM EDT Office Visit [facility] Nephrology, Bone & Mineral Metabolism [address], [address] [place] [address] Yovanny Curran MD [address] [place] [address] 01/08/2025 3:20 PM EDT Office Visit [facility] [address], [address] [place] [address] Vincent Braga MD [address] [place] [address] documented as of this encounter [...] documented as of this encounter Care Teams Industrial Automation Engineer Relationship Specialty Start Date End Date Enedina Mcguire APRN [address] [place] [address] PCP - General 12/04/22 Lj Tapia APRN [address] [place] [address] Referring Physician Gastroenterology 07/18/22 documented as of this encounter
--- OUTSIDE RECORDS SUMMARY | 2024-11-13 08:44 | XMS_ITS | Encounter Summary ---
Author Organization Healthcare Address [address] [place] [address] Care Team Providers Care Environmental Marketer Name Role Phone Jony Conde MD Primary Care Provider [phone] Lj Tapia NEW BUSINESS CLERK Unavailable [phone] Enedina Mcguire NEW BUSINESS CLERK Primary Care Provider + Nuria Fall CONSTRUCTION ASSISTANT Unavailable Unavaila ble Encounter Details Date Type Department Care Team (Late Contact Info) Description 07/04/2022 Orders Only External Location [address] [place] [address] Presley Montes De Oca MD [address] [facility] [address] [place] [phone] Social History Tobacco Use Types Packs/Day Years [...] 12/01/2024 2:20 PM EDT Office Visit [facility] Nephrology, Bone & Mineral Metabolism [address] [facility] [address] [facility] [address], [address] [place] [address] Yovanny Curran MD [address] [facility] [address] [place] [address] 01/08/2025 3:20 PM EDT Office Visit [facility] [place] [address] [facility] [address], [address] [place] [address] Vincent Braga MD [address] [place] [address] documented as of this encounter [...] on filedocumented in this encounter Care Teams Environmental Marketer Relationship Specialty Start Date End Date Jony Conde MD [address] [place] [address] [address] [place] [address] PCP - General 07/18/22 12/03/22 Enedina Mcguire APRN [address] [place], [place] [id number] PCP - General 12/04/22 Lj Tapia APRN [address] [place] [address] Referring Physician Gastroenterology 07/18/22 Nuria Fall LPN [facility] TCM Nurse 07/24/24 08/23/24 documented as of this encounter
--- OUTSIDE RECORDS SUMMARY | 2024-11-13 08:44 | XMS_ITS | Encounter Summary ---
Author Organization [facility] Address [address] [place] [address] Care Team Providers Care Power Tong Operator Name Role Phone Enedina Mcguire NP Primary Care Provider [phone] Source Comments This information has been disclosed [...] release of HIV test results or diagnoses. [id number] Encounter Details Date Type Department Care Team (Late st Contact Info) Description 10/17/2024 Chart Note [facility] Kidney Transplant at [address] [place] [address] Anny Cote RN Social History Tobacco Use [...] Recorded In the past 12 months has [employer], gas, oil, or water [employer] threatened to shut off services in your [...] 12/05/2024 8:01 AM EDT Hospital Encounter [facility] ENDOSCOPY [address] [place] [address] Chris Orosco MD [address] [place] [phone] 12/05/2024 8:01 AM EDT - 12/05/2024 8:31 AM EDT Surgery [facility] ENDOSCOPY [address] [place] [address] Chris Orosco MD [address] [place] [phone] EGD Scheduled Procedures Name Priority Associated Diagnoses [...] documented as of this encounter Care Teams Power Tong Operator Relationship Specialty Start Date End Date Enedina Mcguire NP [address] [place] [address] PCP - General Internal Medicine 10/05/24 documented as of this encounter
--- OUTSIDE RECORDS SUMMARY | 2024-11-13 08:44 | XMS_ITS | Encounter Summary ---
Author Organization Healthcare Address [address] [place] [address] Care Team Providers Care Dust Collector Operator Name Role Phone Jony Conde MD Primary Care Provider [phone] Lj Tapia GARMENT FINISHER Unavailable [phone] Enedina Mcguire GARMENT FINISHER Primary Care Provider + Nuria Fall CUSTOMER SERVICE REPRESENTATIVE Unavailable Unavaila ble Encounter Details Date Type Department Care Team (Late Contact Info) Description 07/03/2022 Orders Only External Location [address] [place] [address] Presley Montes De Oca MD [address] [place] [phone] Social History Tobacco Use Types Packs/Day Years [...] 12/01/2024 2:20 PM EDT Office Visit Professional [facility] Nephrology, Bone & Mineral Metabolism [address] [facility], [address] [place] [address] Yovanny Curran MD [address] [facility] [address] [place] [address] 01/08/2025 3:20 PM EDT Office Visit [facility] [place] [address], [address] [place] [address] Vincent Braga MD [address] [place] [address] documented as of this encounter [...] on filedocumented in this encounter Care Teams Dust Collector Operator Relationship Specialty Start Date End Date Jony Conde MD [address] [place] [address] [address] [place] [address] PCP - General 07/18/22 12/03/22 Enedina Mcguire APRN [address] [place] [address] PCP - General 12/04/22 Lj Tapia APRN [address] [place] [address] Referring Physician Gastroenterology 07/18/22 Nuria Fall LPN [facility] TCM Nurse 07/24/24 08/23/24 documented as of this encounter
--- OUTSIDE RECORDS SUMMARY | 2024-11-13 08:44 | XMS_ITS | Encounter Summary ---
Author Organization [facility] Address [address] [place] [address] Care Team Providers Care Supervisor Packing Room Name Role Phone Enedina Mcguire NP Primary Care Provider + [phone] Maureen Pantoja RN Unavailable Unavail able Source [...] release of HIV test results or diagnoses. [id number] Reason for Visit * Reason Comments Medication Management Requesting RX for New Medication Encounter Details Date Type Department Care Team (Late st Contact Info) Description 10/21/2024 Telephone [facility] Gastroenterology at [facility] [address] [place] [address] Gerri Peterson MD [address] [place] [address] Medication Management (Requesting RX for [...] In the past 12 months has th [employer], oil, or [employer] threatened to shut off services in your [...] Pt called. States he was discharged from [facility] on 10/17 with instructions to contact PCP to start Rx Torsemide 20 mg one tablet a day. PCP is out of town and was advised by human resources office manager in office to contact gastro MD to obtain Rx. Pt states he is retaining 30 pounds of fluid and needs MD to send a prescription or return call dali. Pt can be reached at [phone] documented in this encounter Plan of Treatment Upcoming Encounters Date Type Department Care Team (Late st Contact Info) Description 12/05/2024 8:01 AM EDT Hospital Encounter [facility] ENDOSCOPY [address] [place] [address] Chris Orosco MD [address] [place] [phone] 12/05/2024 8:01 AM EDT - 12/05/2024 8:31 AM EDT Surgery [facility] ENDOSCOPY [address] [place] [address] Chris Orosco MD [address] [place] [address] EGD Scheduled Procedures Name Priority Associated Diagnoses [...] as of this encounter Care Teams Supervisor Packing Room Relationship Specialty Start Date End Date Enedina Mcguire NP [address] [place] [address] PCP - General Internal Medicine 10/05/24 Maureen Pantoja, RN Txp Post Coordinator Transplant Hepatology 10/28/24 documented as of this encounter
--- OUTSIDE RECORDS SUMMARY | 2024-11-13 08:44 | XMS_ITS | Encounter Summary ---
Author Organization [facility] Address [address] [place] [address] Care Team Providers Care Utility Tender Carding Name Role Phone Enedina Mcguire NP Primary Care Provider [phone] Maureen Pantoja RN Unavailable Unavail able Source [...] release of HIV test results or diagnoses. [id number] Health Encounter Details Date Type Department Care Team (Late st Contact Info) Description 11/10/2024 Orders Only [facility] Liver Transplant at [address] [place] [phone] Maureen Pantoja, ЮЛИЯ Liver transplant recipient ([facility]) (Primary Dx); Kidney transplant recipient; Immunosuppressive management encounter following liver transplant ([facility]) Social History Tobacco Use Types Packs/Day Years Used Date Smoking Tobacco: Former Cigarettes Smokeless Tobacco: Current Alcohol Use Standard Drinks/Week Comments Yes 0 (1 standard drink = 0.6 oz pure alcohol) History of alcohol abuse, reports no use in 3 week- typically endorses use as 4 glasses of wine a days Utilities Answer Date Recorded In the past 12 months has [employer], gas, oil, or water [employer] threatened to shut off services in your [...] [facility] ENDOSCOPY [address] [place] [address] Chris Orosco MD [address] [place] [phone] 12/05/2024 8:01 AM EDT - 12/05/2024 8:31 AM EDT Surgery [facility] ENDOSCOPY [address] [place] [address] Chris Orosco MD [address] [place] [address] EGD Scheduled Procedures Name Priority Associated Diagnoses Date/Ti me EGD Cirrhosis of liver with ascites, unspecified hepatic cirrhosis type (CMS-HCC) 12/05/2024 8:01 AM EDT documented as of this encounter Visit Diagnoses Diagnosis Liver transplant recipient (CMS-HCC)- Primary Kidney transplant recipient Immunosuppressive management encounter following liver transplant (CMS-HCC) Cirrhosis of liver with ascites, unspecified hepatic cirrhosis type (CMS-HCC) documented in this encounter Additional Health Concerns Infection Onset Date Last Indicated 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
--- OUTSIDE RECORDS SUMMARY | 2024-11-13 08:44 | XMS_ITS | Encounter Summary ---
Author Organization [facility] Address [address] [place] [address] Care Team Providers Care Engineered Wood Designer Name Role Phone Enedina Mcguire NP Primary Care Provider + [phone] Maureen Pantoja RN Unavailable Unavail able Source [...] release of HIV test results or diagnoses. [id number] Reason for Visit * Reason Comments Medication Refill Refill Request 1st A ttempt Encounter Details Date Type Department Care Team (Late st Contact Info) Description 10/21/2024 Refill [facility] Gastroenterology at [facility] Office [address] [place] [address] Gerri Peterson MD [address] [place] [address] Social History Tobacco Use Types Packs/Day Years Used Date Smoking Tobacco: Former Cigarettes Smokeless Tobacco: Current Alcohol Use Standard Drinks/Week Comments Yes 0 (1 standard drink = 0.6 oz pure alcohol) History of alcohol abuse, reports no use in 3 week- typically endorses use as 4 glasses of wine a days Utilities Answer Date Recorded In the past 12 months has [employer], gas, oil, or water [employer] threatened to shut off services [...] 12/05/2024 8:01 AM EDT Hospital Encounter [facility] ENDOSCOPY [address] [place] [address] Chris Orosco MD [address] [place] [address] 12/05/2024 8:01 AM EDT - 12/05/2024 8:31 AM EDT Surgery [facility] ENDOSCOPY [address] [place] [address] Chris Orosco MD [address] [place] [phone] EGD Scheduled Procedures Name Priority Associated Diagnoses [...] documented as of this encounter Care Teams Engineered Wood Designer Relationship Specialty Start Date End Date Enedina Mcguire NP [address] [place] [address] PCP - General Internal Medicine 10/05/24 Maureen Pantoja, ЮЛИЯ Txp Post Coordinator Transplant Hepatology 10/28/24 documented as of this encounter
--- OUTSIDE RECORDS SUMMARY | 2024-11-13 08:44 | XMS_ITS | Encounter Summary ---
Author Organization Healthcare Address [address] [place] [address] Care Team Providers Care Chaplaincy Name Role Phone Jony Conde MD Primary Care Provider [phone] Lj Tapia BEHAVIORAL INSTRUCTOR Unavailable [phone] Enedina Mcguire BEHAVIORAL INSTRUCTOR Primary Care Provider + Nuria Fall ETHANOL QUALITY LEADER Unavailable Unavaila ble Encounter Details Date Type Department Care Team (Late Contact Info) Description 07/04/2022 Orders Only External Location [address] [place] [address] Presley Montes De Oca MD [address] [facility] [address] [place] [phone] Social History Tobacco Use Types Packs/Day Years [...] Nephrology, Bone & Mineral Metabolism [address] [facility], [address] [place] [address] Yovanny Curran MD [address] [facility] [address] [place] [address] 01/08/2025 3:20 PM EDT Office Visit [facility] [place] [address] [facility] [place] [address] Vincent Braga MD [address] [place] [address] documented as of this encounter [...] on filedocumented in this encounter Care Teams Chaplaincy Relationship Specialty Start Date End Date Jony Conde MD [address] [place] [address] [address] [place] [address] PCP - General 07/18/22 12/03/22 Enedina Mcguire APRN [address] [place], [place] [phone] PCP - General 12/04/22 Lj Tapia APRN [address] [place] [address] Referring Physician Gastroenterology 07/18/22 Nuria Fall LPN [facility] TCM Nurse 07/24/24 08/23/24 documented as of this encounter
--- OUTSIDE RECORDS SUMMARY | 2024-11-13 08:46 | XMS_ITS | Encounter Summary ---
Author Organization [facility] Address [address] [place] [address] Care Team Providers Care Director Of Clinical Trials Name Role Phone Enedina Mcguire NP Primary Care Provider [phone] Source Comments This information has been disclosed [...] release of HIV test results or diagnoses. [id number] Encounter Details Date Type Department Care Team (Late st Contact Info) Description 10/17/2024 Chart Note [facility] Kidney Transplant at [address] [place] [address] Anny Cote, RN Copy of HLA [...] In the past 12 months has e [employer], gas, oil, or water [employer] threatened to shut off services in your [...] 12/05/2024 8:01 AM EDT Hospital Encounter [facility] ENDOSCOPY [address] [place] [address] Chris Orosco MD [address] [place] [address] 12/05/2024 8:01 AM EDT - 12/05/2024 8:31 AM EDT Surgery [facility] ENDOSCOPY [address] [place] [address] Chris Orosco MD [address] [place] [phone] EGD Scheduled Procedures Name Priority Associated Diagnoses [...] of this encounter Care Teams Director Of Clinical Trials Relationship Specialty Start Date End Date Enedina Mcguire NP [address] [place] [address] PCP - General Internal Medicine 10/05/24 documented as of this encounter
--- OUTSIDE RECORDS SUMMARY | 2024-11-13 08:48 | XMS_ITS | Encounter Summary ---
Author Organization [facility] Address [address] [place] [address] Care Team Providers Care Advertising Photographer Name Role Phone Enedina Mcguire NP Primary Care Provider + [phone] Maureen Pantoja RN Unavailable Unavail able Source [...] release of HIV test results or diagnoses. [id number] Reason for Visit * Reason Comments Results Encounter Details Date Type Department Care Team (Late st Contact Info) Description 11/07/2024 Telephone [facility] Liver Transplant at [address] [address] Maureen Pantoja, RN Results Social [...] In the past 12 months has [employer], gas, oil, or water [employer] threatened to shut off services in your [...] Progress Notes * Maureen Pantoja RN - 11/10/2024 2:49 PM EDT FK 9.9 Will continue to monitor as per previously determined lab intervals. * Maureen Pantoja RN - 11/07/2024 1:38 PM EDT Lab results from 11/06/24 reviewed. Cr 1.10; BUN 35. Alk phos 142 (from 133), AST/ALT 24/59 (from ). FK pending. Will follow-up. Current IS: FK 6 mg BID MMF 500 mg BID Prednisone 20 mg daily documented in this encounter Plan of Treatment Upcoming Encounters Date Type Department Care Team (Late st Contact Info) Description 12/05/2024 8:01 AM EDT Hospital Encounter [facility] ENDOSCOPY [address] [place] [phone] Chris Orosco MD [address] [place] [phone] 12/05/2024 8:01 AM EDT - 12/05/2024 8:31 AM EDT Surgery [facility] ENDOSCOPY [address] [place] [phone] Chris Orosco MD [address] [place] [phone] EGD Scheduled Procedures Name Priority Associated Diagnoses Date/Ti wy EGD Cirrhosis of liver with ascites, unspecified [...] documented as of this encounter Care Teams Advertising Photographer Relationship Specialty Start Date End Date Enedina Mcguire NP [address] [place] [address] PCP - General Internal Medicine 10/05/24 Maureen Pantoja, RN Txp Post Coordinator Transplant Hepatology 10/28/24 documented as of this encounter
--- OUTSIDE RECORDS SUMMARY | 2024-11-13 08:50 | XMS_ITS | Encounter Summary ---
Author Organization [facility] Address [address] [place] [address] Care Team Providers Care Vacuum Repairer Name Role Phone Enedina Mcguire NP Primary Care Provider [phone] Source Comments This information has been disclosed [...] release of HIV test results or diagnoses. [id number] Encounter Details Date Type Department Care Team (Late st Contact Info) Description 10/20/2024 Telephone [facility] Liver Transplant at [address] [address] Mary Butler, RN Social History Tobacco Use [...] Recorded In the past 12 months has [employer], gas, oil, or water [employer] threatened to shut off services in your [...] Hep C donors. He'll also go to [facility] later today vs tomorrow morning for follow up MELD labs that I'll need in order to list him. All questions answered at this time. Lab orders faxed to [facility] at [phone] and emailed to patient. documented in this encounter Plan of Treatment Upcoming Encounters Date Type Department Care Team (Late st Contact Info) Description 12/05/2024 8:01 AM EDT Hospital Encounter [facility] ENDOSCOPY [address] [place] [address] Chris Orosco MD [address] [place] [phone] 12/05/2024 8:01 AM EDT - 12/05/2024 8:31 AM EDT Surgery [facility] ENDOSCOPY [address] [place] [address] Chris Orosco MD [address] [place] [phone] EGD Scheduled Procedures Name Priority Associated Diagnoses [...] documented as of this encounter Care Teams Vacuum Repairer Relationship Specialty Start Date End Date Enedina Mcguire NP [address] [place] [address] PCP - General Internal Medicine 10/05/24 documented as of this encounter
--- OUTSIDE RECORDS SUMMARY | 2024-11-13 08:50 | XMS_ITS | Encounter Summary ---
Author Organization [facility] Address [address] [place] [address] Care Team Providers Care Eyewear Consultant Name Role Phone Enedina Mcguire NP Primary Care Provider + [phone] Maureen Pantoja RN Unavailable Unavail able Source [...] release of HIV test results or diagnoses. [id number] Health Encounter Details Date Type Department Care Team (Late st Contact Info) Description 11/04/2024 Social Work [facility] Liver Transplant at [address] [place] [phone] Kaylin Willard MSW Social History Tobacco Use [...] Recorded In the past 12 months has [employer], gas, oil, or water [employer] threatened to shut off services in your [...] Patient reports he completed CD treatment with [facility] and was referred to [facility] for aftercare and will be attending 1 week virtual individual counseling sessions.He reports he was due to start this while hospitalized for the transplant and plans to reschedule his next session. Hope Stone given. SW discussed process for writing to Donor family and confirmed Pt/family have [facility] brochure. No further SW needs identified. NUBIA Barros, UTILIZATION MANAGEMENT NURSE Transplant Consumer Lending Manager documented in this encounter Plan of Treatment Upcoming Encounters Date Type Department Care Team (Late st Contact Info) Description 12/05/2024 8:01 AM EDT Hospital Encounter [facility] ENDOSCOPY [address] [place] [phone] Chris Orosco MD [address] [place] [phone] 12/05/2024 8:01 AM EDT - 12/05/2024 8:31 AM EDT Surgery [facility] ENDOSCOPY [address] [place] [phone] Chris Orosco MD [address] [place] [phone] EGD Scheduled Procedures Name Priority Associated Diagnoses [...] documented as of this encounter Care Teams Eyewear Consultant Relationship Specialty Start Date End Date Enedina Mcguire NP [address] [place] [address] PCP - General Internal Medicine 10/05/24 Maureen Pantoja, ЮЛИЯ Txp Post Coordinator Transplant Hepatology 10/28/24 documented as of this encounter
--- OUTSIDE RECORDS SUMMARY | 2024-11-13 08:50 | XMS_ITS | Encounter Summary ---
Author Organization [facility] Address [address] [place] [address] Care Team Providers Care General Operations Agent Name Role Phone Endeina Mcguire NP Primary Care Provider + [phone] Maureen Pantoja RN Unavailable Unavail able Source [...] release of HIV test results or diagnoses. [id number] Health Encounter Details Date Type Department Care Team (Late st Contact Info) Description 11/07/2024 Telephone [facility] Liver Transplant at [address] [address] Marlene Ro MA Social History Tobacco Use Types Packs/Day Years Used Date Smoking Tobacco: Former Cigarettes Smokeless Tobacco: Current Alcohol Use Standard Drinks/Week Comments Yes 0 (1 standard drink = 0.6 oz pure alcohol) History of alcohol abuse, reports no use in 3 week- typically endorses use as 4 glasses of wine a days Utilities Answer Date Recorded In the past 12 months has [employer], gas, oil, or water [employer] threatened to shut off services in your [...] as of this encounter Progress Notes * Marlene Ro MA - 11/07/2024 3:39 PM EDT Yanet at outpt lab called to inform the care team that the collection tube for the ova and parasite study was not the correct collection tube. They were notified of this rejection by [facility]. He wasable to obtain the other stool study. I contacted CC RN Maureen who said he is okay to not return to the lab. This was also relayed to yanet at the lab. She verbalized understanding and no further questions/concerns at this time. documented in this encounter Plan of Treatment Upcoming Encounters Date Type Department Care Team (Late st Contact Info) Description 12/05/2024 8:01 AM EDT Hospital Encounter [facility] ENDOSCOPY [address] [place] [address] Chris Orosco MD [address] [place] [phone] 12/05/2024 8:01 AM EDT - 12/05/2024 8:31 AM EDT Surgery [facility] ENDOSCOPY [address] [place] [address] Chris Orosco MD [address] [place] [address] EGD Scheduled Procedures Name Priority Associated Diagnoses [...] documented as of this encounter Care Teams General Operations Agent Relationship Specialty Start Date End Date Enedina Mcguire NP [address] [place] [address] PCP - General Internal Medicine 10/05/24 Maureen Pantoja, RN Txp Post Coordinator Transplant Hepatology 10/28/24 documented as of this encounter
--- OUTSIDE RECORDS SUMMARY | 2024-11-13 08:50 | XMS_ITS | Encounter Summary ---
Author Organization [facility] Address [address] [place] [address] Care Team Providers Care Systems Software Designer Name Role Phone Enedina Mcguire NP Primary Care Provider + [phone] Maureen Pantoja RN Unavailable Unavail able Source [...] release of HIV test results or diagnoses. [id number] Reason for Visit * Reason Comments Results Encounter Details Date Type Department Care Team (Riky st Contact Info) Description 11/11/2024 Telephone [facility] Liver Transplant at [address] [address] Maureen Pantoja, RN Results Social [...] In the past 12 months has e [employer], gas, oil, or water [employer] threatened to shut off services in your [...] Progress Notes * Maureen Pantoja RN - 11/11/2024 4:17 PM EDT Reviewed by Dr. Domínguez. No changes. Prescription for Dilaudid sent to patient's local pharmacy per request. Patient updated. * Maureen Pantoja RN - 11/11/2024 2:39 PM EDT Lab results from 11/11/24 reviewed during clinic today, see office note. FK resulted after clinic. FK 10.4 Current IS: FK 6 mg BID MMF 500 mg BID Prednisone 20 mg daily (instructed to decrease to 15 mg daily on 11/15) Will route to Txp Provider for further review and recommendations. documented in this encounter Plan of Treatment Upcoming Encounters Date Type Department Care Team (Late st Contact Info) Description 12/05/2024 8:01 AM EDT Hospital Encounter [facility] ENDOSCOPY [address] [place] [phone] Chris Orosco MD [address] [place] [phone] 12/05/2024 8:01 AM EDT - 12/05/2024 8:31 AM EDT Surgery [facility] ENDOSCOPY [address] [place] [address] Chris Orosco MD [address] [place] [phone] EGD Scheduled Procedures Name Priority Associated Diagnoses Date/Ti me EGD Cirrhosis of liver with ascites, unspecified hepatic cirrhosis type ([facility]) 12/05/2024 8:01 AM EDT documented as of this encounter Visit Diagnoses Not on filedocumented in this encounter Additional Health Concerns Infection Onset Date Last Indicated 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
--- OUTSIDE RECORDS SUMMARY | 2024-11-13 08:50 | XMS_ITS | Encounter Summary ---
Author Organization [facility] Address [facility] [place] [address] Care Team Providers Care Bilingual Interpreter Name Role Phone Enedina Mcguire NP Primary Care Provider + [phone] Maureen Pantoja RN Unavailable Unavail able Source [...] release of HIV test results or diagnoses. [id number] Reason for Visit * Reason Comments After Hours Call Passing blood throug h stool states started this morning has had 3 bloody bowel movements kidney and liver txp done 2 weeks ago Encounter Details Date Type Department Care Team (Late st Contact Info) Description 11/09/2024 Telephone [facility] [address] [place] [address] Unknown, Attending Provider After Hours Call (Passing blood through stool states started this morning has had 3 bloody bowel movements kidney and liver txp done 2 weeks ago) Social History Tobacco Use Types Packs/Day Years Used Date Smoking Tobacco: Former Cigarettes Smokeless Tobacco: Current Alcohol Use Standard Drinks/Week Comments Yes 0 (1 standard drink = 0.6 oz pure alcohol) History of alcohol abuse, reports no use in 3 week- typically endorses use as 4 glasses of wine a days Utilities Answer Date Recorded In the past 12 months has [employer], gas, oil, or water [email or web address] threatened to shut off services in your [...] encounter Miscellaneous Notes * Telephone Encounter - Geri Vasquez RN - 11/09/2024 11:47 AM EDT Spoke with Dionna. Patient has had blood in stool today. Patient otherwise feels fine. Vitals are normal. Spoke with Dr. Domínguez who advised to monitor for now. If volume of blood increases, changes in vitals signs, becomes orthostatic, or any other concerning symptoms patient should be evaluated inthe ER. Patient verbalized understanding. * Telephone Encounter - Kira Farias - 11/09/2024 11:31 AM EDT Specialty: liver/kidney txp Patient Name: Julien Anderson Patient Date of : 1985 Relationship of Caller to Patient and Callback: dionna anderson [phone] Patient of: liver txp txp team Nature of Call: Passing blood through stool states started this morning has had 3 bloody bowel movements kidney and liver txp done 2 weeks ago [employer] Provider Contacted: del turner Time and Method of Contact: via cell phone 1133 am connected coordinator to dionna at 1135 am Advise Caller: If provider does not call back within 30 minutes, please call us back. ROUTE TELEPHONE NOTE - Follow Qgenda and/or Route Directly to Provider. COPY this note into AFTERHOURS Teams chat. documented in this encounter Plan of Treatment Upcoming Encounters Date Type Department Care Team (Late st Contact Info) Description 12/05/2024 8:01 AM EDT Hospital Encounter [facility] ENDOSCOPY [address] [place] [address] Chris Orosco MD [address] [place] [phone] 12/05/2024 8:01 AM EDT - 12/05/2024 8:31 AM EDT Surgery [facility] ENDOSCOPY [address] [place] [phone] Chris Orosco MD [address] [place] [phone] EGD Scheduled Procedures Name Priority Associated Diagnoses [...] documented as of this encounter Care Teams Bilingual Interpreter Relationship Specialty Start Date End Date Enedina Mcguire NP [address] [place] [address] PCP - General Internal Medicine 10/05/24 Maureen Pantoja, RN Txp Post Coordinator Transplant Hepatology 10/28/24 documented as of this encounter
--- OUTSIDE RECORDS SUMMARY | 2024-11-13 08:50 | XMS_ITS | Encounter Summary ---
Author Organization [facility] Address [address] [place] [address] Care Team Providers Care Intellectual Property Legal Assistant Name Role Phone Enedina Mcguire NP Primary Care Provider + [phone] Maureen Pantoja RN Unavailable Unavail able Source [...] release of HIV test results or diagnoses. [id number] Health Encounter Details Date Type Department Care Team (Late st Contact Info) Description 11/04/2024 Results Follow-Up [facility] Liver Transplant at [address] [address] Maureen Pantoja, ЮЛИЯ Tacrolimus level, Hepatic Function [...] Recorded In the past 12 months has [employer], gas, oil, or water [employer] threatened to shut off services in your [...] Description 12/05/2024 8:01 AM EDT Hospital Encounter [facility] ENDOSCOPY [address] [place] [address] Chris Orosco MD [address] [place] [phone] 12/05/2024 8:01 AM EDT - 12/05/2024 8:31 AM EDT Surgery [facility] ENDOSCOPY [address] [place] [phone] Chris Orosco MD [address] [place] [phone] EGD Scheduled Procedures Name Priority Associated Diagnoses Date/Ti me EGD Cirrhosis of liver with ascites, unspecified hepatic cirrhosis type ([facility]) 12/05/2024 8:01 AM EDT documented as of this encounter Visit Diagnoses Not on filedocumented in this encounter Additional Health Concerns Infection Onset Date Last Indicated 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
--- OUTSIDE RECORDS SUMMARY | 2024-11-13 08:50 | XMS_ITS | Encounter Summary ---
Author Organization [facility] Address [address] [place] [address] Care Team Providers Care Rn Office Name Role Phone Enedina Mcguire NP Primary Care Provider + [phone] Maureen Pantoja RN Unavailable Unavail able Source [...] release of HIV test results or diagnoses. [id number] Reason for Visit * Reason Comments Medication Refill Refill Request 1st A ttempt Encounter Details Date Type Department Care Team (Late st Contact Info) Description 10/20/2024 Refill [facility] Gastroenterology at [facility] Office [address] [place] [address] Gerri Peterson MD [address] [place] [address] Social History Tobacco Use Types Packs/Day Years Used Date Smoking Tobacco: Former Cigarettes Smokeless Tobacco: Current Alcohol Use Standard Drinks/Week Comments Yes 0 (1 standard drink = 0.6 oz pure alcohol) History of alcohol abuse, reports no use in 3 week- typically endorses use as 4 glasses of wine a days Utilities Answer Date Recorded In the past 12 months has [employer], gas, oil, or water [employer] threatened to shut off services in your [...] need filled today. PHARMACY & PHONE #: [facility] [address] [place] [address] [address] [address] DATE OF LAST APPT: 09/02/2024 Gerri Peterson MD DATE OF NEXT APPT: 12/02/2024 GI/LIVER FELLOW 4 documented in this encounter Plan of Treatment Upcoming Encounters Date Type Department Care Team (Late st Contact Info) Description 12/05/2024 8:01 AM EDT Hospital Encounter [facility] ENDOSCOPY [address] [place] [address] Chris Orosco MD [address] [place] [phone] 12/05/2024 8:01 AM EDT - 12/05/2024 8:31 AM EDT Surgery [facility] ENDOSCOPY [address] [place] [phone] Chris Orosco MD [address] [place] [phone] EGD Scheduled Procedures Name Priority Associated Diagnoses [...] as of this encounter Care Teams Rn Office Relationship Specialty Start Date End Date Enedina Mcguire NP [address] [place] [address] PCP - General Internal Medicine 10/05/24 Maureen Pantoja, RN Txp Post Coordinator Transplant Hepatology 10/28/24 documented as of this encounter
--- OUTSIDE RECORDS SUMMARY | 2024-11-13 08:51 | XMS_ITS | Encounter Summary ---
Author Organization [facility] Address [facility] [place] [address] Care Team Providers Care Customer Consultant Name Role Phone Enedina Mcguire NP Primary Care Provider + [phone] Maureen Pantoja RN Unavailable Unavail able Source [...] release of HIV test results or diagnoses. [id number] Health Encounter Details Date Type Department Care Team (Late st Contact Info) Description 10/31/2024 Orders Only [facility] Liver Transplant at [facility] [address] [facility] [address] [place] [address] Harvey Domínguez III, MD [address] [place] [address] [address] [place] [address] Liver replaced by transplant ([facility]) (Primary Dx); Immunosuppressive management encounter following liver transplant ([facility]) Social History Tobacco Use Types Packs/Day [...] past 12 months has th e electric, [employer], [employer], or water [employer] threatened to shut off services in your [...] 8:01 AM EDT Hospital Encounter [facility] ENDOSCOPY [address] [place] [address] Chris Orosco MD [address] [place] [phone] 12/05/2024 8:01 AM EDT - 12/05/2024 8:31 AM EDT Surgery [facility] ENDOSCOPY [address] [place] [phone] Chris Orosco MD [address] [place] [phone] EGD Scheduled Orders Name Type Priority Associated Diagnoses Orde r Schedule Tacrolimus level Lab Routine Liver replaced by transplant (CMS-HCC) Immunosuppressive management encounter following liver transplant (CMS-HCC) 70 Occurrences starting 11/03/2024 until 10/31/2025, 2 completed Hepatic Function Panel Lab Routine Liver replaced by transplant (CMS-HCC) Immunosuppressive management encounter following liver transplant (CMS-HCC) 70 Occurrences starting 11/03/2024 until 10/31/2025, 2 completed Renal Function Panel w/EGFR Lab Routine Liver replaced by transplant (CMS-HCC) Immunosuppressive management encounter following liver transplant (CMS-HCC) 70 Occurrences starting 11/03/2024 until 10/31/2025, 2 completed CBC Lab Routine Liver replaced by transplant (CMS-HCC) Immunosuppressive management encounter following liver transplant (CMS-HCC) 70 Occurrences starting 11/03/2024 until 10/31/2025, 2 completed Differential Lab Routine Liver replaced by transplant (CMS-HCC) Immunosuppressive management encounter following liver transplant (CMS-HCC) 70 Occurrences starting 11/03/2024 until 10/31/2025, 2 completed Scheduled Procedures Name Priority Associated Diagnoses Date/Ti me EGD Cirrhosis of liver with ascites, unspecified hepatic cirrhosis type (CMS-HCC) 12/05/2024 8:01 AM EDT documented as of this encounter Results * (ABNORMAL) Differential (11/11/2024 9:13 AM EDT) Neutrophils Relative 69.3 40.0 - 80.0 % 11/11/2024 10:31 AM EDT [facility] Lymphocytes Relative 17.6 15.0 - 45.0 % 11/11/2024 10:31 AM EDT [facility] Monocytes Relative 8.5 0.0 - 12.0 % 11/11/2024 10:31 AM EDT [facility] Eosinophils Relative 2.0 0.0 - 8.0 % 11/11/2024 10:31 AM EDT [facility] Basophils Relative 2.6(H) 0.0 - 1.0 % 11/11/2024 10:31 AM EDT [facility] nRBC 0 0 - 0 /100 WBC 11/11/2024 10:31 AM EDT [facility] Neutrophils Absolute 4,920 1,520 - 8,640 /uL 11/11/2024 10:31 AM EDT [facility] Lymphocytes Absolute 1,250 570 - 4,860 /uL 11/11/2024 10:31 AM EDT [facility] Monocytes Absolute 604 0 - 1,296 /uL 11/11/2024 10:31 AM EDT [facility] Eosinophils Absolute 142 0 - 864 /uL 11/11/2024 10:31 AM EDT [facility] Basophils Absolute 185(H) 0 - 108 /uL 11/11/2024 10:31 AM EDT [facility] Whole Blood 11/11/2024 9:13 AM EDT 11/11/2024 10:19 AM EDT Narrative [facility] - 11/11/2024 10:31 AM EDT Standing orders to be drawn: Every Sunday and before 9am and prior to patient taking morning medications. Liver Transplant Fax results to [phone] Call Critical results to [phone] us Harvey Domínguez III, MD LAB BLOOD ORDERABLE S Final Result [facility] [address] [place] [address], [facility] * (ABNORMAL) CBC (11/11/2024 9:13 AM EDT) WBC 7.1 3.8 - 10.8 10E3/uL 11/11/2024 10:31 AM EDT [facility] RBC 3.42(L) 4.20 - 5.80 10E6/uL 11/11/2024 10:31 AM EDT [facility] Hemoglobin 10.6(L) 13.2 - 17.1 g/dL 11/11/2024 10:31 AM EDT [facility] Hematocrit 31.3(L) 38.5 - 50.0 % 11/11/2024 10:31 AM EDT [facility] MCV 91.5 80.0 - 100.0 fL 11/11/2024 10:31 AM EDT [facility] MCH 31.0 27.0 - 33.0 pg 11/11/2024 10:31 AM EDT [facility] MCHC 33.8 32.0 - 36.0 g/dL 11/11/2024 10:31 AM EDT [facility] RDW 20.5(H) 11.0 - 15.0 % 11/11/2024 10:31 AM EDT [facility] Platelets 308 140 - 400 10E3/uL 11/11/2024 10:31 AM EDT [facility] MPV 6.1(L) 7.5 - 11.5 fL 11/11/2024 10:31 AM EDT [facility] Whole Blood 11/11/2024 9:13 AM EDT 11/11/2024 10:19 AM EDT Narrative [facility] - 11/11/2024 10:31 AM EDT Standing orders to be drawn: Every Sunday and before 9am and prior to patient taking morning medications. Liver Transplant Fax results to [phone] Call Critical results to [phone] us Harvey Domínguez III, MD LAB BLOOD ORDERABLE S Final Result [facility] [address] [place] [address], [facility] * (ABNORMAL) Renal Function Panel w/EGFR (11/11/2024 9:13 AM EDT) Sodium 141 133 - 146 mmol/L 11/11/2024 10:51 AM EDT [facility] Potassium 4.6 3.5 - 5.3 mmol/L 11/11/2024 10:51 AM EDT [facility] Chloride 108 98 - 110 mmol/L 11/11/2024 10:51 AM EDT [facility] CO2 24 21 - 33 mmol/L 11/11/2024 10:51 AM EDT [facility] Anion Gap 9 3 - 16 mmol/L 11/11/2024 10:51 AM EDT [facility] BUN 27(H) 7 - 25 mg/dL 11/11/2024 10:51 AM EDT [facility] Creatinine 1.14 0.60 - 1.30 mg/dL 11/11/2024 10:51 AM EDT [facility] Glucose 97 70 - 100 mg/dL 11/11/2024 10:51 AM EDT [facility] Calcium 8.6 8.6 - 10.3 mg/dL 11/11/2024 10:51 AM EDT [facility] Phosphorus 4.4 2.1 - 4.7 mg/dL 11/11/2024 10:51 AM EDT [facility] Albumin 3.8 3.5 - 5.7 g/dL 11/11/2024 10:51 AM EDT [facility] Osmolality, Calculated 297 278 - 305 mOsm/kg 11/11/2024 10:51 AM EDT [facility] EGFR 83 11/11/2024 10:51 AM EDT [facility] Comment:As of 2021, the estimated [...] morning medications. Liver Transplant Fax results to [phone] Call Critical results to [phone] DO NOT REPLACE RENAL PANEL or HEPATIC FUNCTION PANEL w/ CMP, BMP or HEPATIC PROFILE us Harvey Domínguez III, MD LAB BLOOD ORDERABLE S Final Result [facility] [address] [place] [address], [facility] * (ABNORMAL) Hepatic Function Panel (11/11/2024 9:13 AM EDT) Total Bilirubin 1.0 0.0 - 1.5 mg/dL 11/11/2024 10:51 AM EDT [facility] Bilirubin, Direct 0.39 0.00 - 0.40 mg/dL 11/11/2024 10:51 AM EDT [facility] AST 15 13 - 39 U/L 11/11/2024 10:51 AM EDT [facility] ALT 26 7 - 52 U/L 11/11/2024 10:51 AM EDT [facility] Alkaline Phosphatase 125 36 - 125 U/L 11/11/2024 10:51 AM EDT [facility] Total Protein 5.9(L) 6.4 - 8.9 g/dL 11/11/2024 10:51 AM EDT [facility] Albumin 3.8 3.5 - 5.7 g/dL 11/11/2024 10:51 AM EDT [facility] Bilirubin, Indirect 0.61 0.00 - 1.10 mg/dL 11/11/2024 10:51 AM EDT [facility] Plasma 11/11/2024 9:13 AM EDT 11/11/2024 10:19 AM EDT [facility] - 11/11/2024 10:51 AM EDT Standing orders to be drawn: Every Sunday and before 9am and prior to patient taking morning medications. Liver Transplant Fax results to [phone] Call Critical results to [phone] DO NOT REPLACE RENAL PANEL or HEPATIC FUNCTION PANEL w/ CMP, BMP or HEPATIC PROFILE Harvey Domínguez III, MD LAB BLOOD ORDERABLE S Final Result [facility] [address] * Tacrolimus level (11/11/2024 9:13 AM EDT) Tacrolimus (LC-MS) 10.4 3.0 - 15.0 ng/mL 11/11/2024 1:22 PM EDT [facility] Comment:Performed via liquid chromatography tandem mass spectrometry. Detection limit: 1 ng/mL. Individual target concentrations may vary due to target organ and time after transplant. This test has been developed and its performance characteristics determined by [facility] which is certified under [...] AM EDT 11/11/2024 10:19 AM EDT Narrative [facility] - 11/11/2024 1:22 PM EDT Standing orders to be drawn: Every Sunday and Thursday before 9am and prior to patient taking morning medications. Liver Transplant Fax results to [phone] Call Critical results to [phone] us Harvey Domínguez III, MD LAB BLOOD ORDERABLE S Final Result [facility] [address] [place] [address], [facility] * (ABNORMAL) Differential (11/04/2024 8:46 AM EDT) Differential Comments See Note 11/05/2024 12:05 AM EDT [facility] Comment: _Platelets Appear Decreased _Platelet Morphology Normal Myelocytes Relative 3.0(H) 0.0 - 0.0 % 11/05/2024 12:05 AM EDT [facility] Neutrophils Relative 73.0 40.0 - 80.0 % 11/05/2024 12:05 AM EDT [facility] Lymphocytes Relative 17.0 15.0 - 45.0 % 11/05/2024 12:05 AM EDT [facility] Monocytes Relative 6.0 0.0 - 12.0 % 11/05/2024 12:05 AM EDT [facility] Eosinophils Relative 1.0 0.0 - 8.0 % 11/05/2024 12:05 AM EDT [facility] Basophils Relative 0.0 0.0 - 1.0 % 11/05/2024 12:05 AM EDT [facility] Neutrophils Absolute 5,256 1,520 - 8,640 /uL 11/05/2024 12:05 AM EDT [facility] Myelocytes Absolute 216(H) 0 - 0 /uL 11/05/2024 12:05 AM EDT [facility] Lymphocytes Absolute 1,224 570 - 4,860 /uL 11/05/2024 12:05 AM EDT [facility] Monocytes Absolute 432 0 - 1,296 /uL 11/05/2024 12:05 AM EDT [facility] Eosinophils Absolute 72 0 - 864 /uL 11/05/2024 12:05 AM EDT [facility] Basophils Absolute 0 0 - 108 /uL 11/05/2024 12:05 AM EDT [facility] PLT Morphology Platelet morphology appears normal 11/05/2024 12:05 AM EDT [facility] Whole Blood 11/04/2024 8:46 AM EDT 11/04/2024 11:01 PM EDT Narrative [facility] - 11/05/2024 12:05 AM EDT Standing orders to be drawn: Every Sunday and before 9am and prior to patient taking morning medications. Liver Transplant Fax results to [phone] Call Critical results to [phone] Manual WBC differential performed per review criteria approved by the medical engineer. us Harvey Domínguez III, MD LAB BLOOD ORDERABLE S Final Result [facility] [address] [place] [address], [facility] * (ABNORMAL) CBC (11/04/2024 8:46 AM EDT) WBC 7.2 3.8 - 10.8 10E3/uL 11/05/2024 12:05 AM EDT [facility] RBC 3.17(L) 4.20 - 5.80 10E6/uL 11/05/2024 12:05 AM EDT [facility] Hemoglobin 9.7(L) 13.2 - 17.1 g/dL 11/05/2024 12:05 AM EDT [facility] Hematocrit 28.6(L) 38.5 - 50.0 % 11/05/2024 12:05 AM EDT [facility] MCV 90.2 80.0 - 100.0 fL 11/05/2024 12:05 AM EDT [facility] MCH 30.5 27.0 - 33.0 pg 11/05/2024 12:05 AM EDT [facility] MCHC 33.8 32.0 - 36.0 g/dL 11/05/2024 12:05 AM EDT [facility] RDW 17.9(H) 11.0 - 15.0 % 11/05/2024 12:05 AM EDT [facility] Platelets 137(L) 140 - 400 10E3/uL 11/05/2024 12:05 AM EDT [facility] Platelet Estimate Decreased 11/05/2024 12:05 AM EDT [facility] MPV 8.4 7.5 - 11.5 fL 11/05/2024 12:05 AM EDT [facility] Whole Blood 11/04/2024 8:46 AM EDT 11/04/2024 11:01 PM EDT Narrative [facility] - 11/05/2024 12:05 AM EDT Standing orders to be drawn: Every Sunday and before 9am and prior to patient taking morning medications. Liver Transplant Fax results to [phone] Call Critical results to [phone] Peripheral blood smear was scanned per review criteria approved by the laboratory medical engineer. us Harvey Domínguez III, MD LAB BLOOD ORDERABLE S Final Result [facility] [address] [place] [address], [facility] * (ABNORMAL) Renal Function Panel w/EGFR (11/04/2024 8:46 AM EDT) Sodium 139 133 - 146 mmol/L 11/04/2024 10:06 AM EDT [facility] Potassium 3.8 3.5 - 5.3 mmol/L 11/04/2024 10:06 AM EDT [facility] Chloride 106 98 - 110 mmol/L 11/04/2024 10:06 AM EDT [facility] CO2 25 21 - 33 mmol/L 11/04/2024 10:06 AM EDT [facility] Anion Gap 8 3 - 16 mmol/L 11/04/2024 10:06 AM EDT [facility] BUN 34(H) 7 - 25 mg/dL 11/04/2024 10:06 AM EDT [facility] Creatinine 1.08 0.60 - 1.30 mg/dL 11/04/2024 10:06 AM EDT [facility] Glucose 92 70 - 100 mg/dL 11/04/2024 10:06 AM EDT [facility] Calcium 7.8(L) 8.6 - 10.3 mg/dL 11/04/2024 10:06 AM EDT [facility] Phosphorus 1.9(L) 2.1 - 4.7 mg/dL 11/04/2024 10:06 AM EDT [facility] Albumin 3.5 3.5 - 5.7 g/dL 11/04/2024 10:06 AM EDT [facility] Osmolality, Calculated 295 278 - 305 mOsm/kg 11/04/2024 10:06 AM EDT [facility] EGFR 88 11/04/2024 10:06 AM EDT [facility] Comment:As of 2021, the estimated [...] AM EDT 11/04/2024 9:32 AM EDT Narrative [facility] - 11/04/2024 10:06 AM EDT Standing orders to be drawn: Every Sunday and before 9am and prior to patient taking morning medications. Liver Transplant Fax results to [phone] Call Critical results to [phone] DO NOT REPLACE RENAL PANEL or HEPATIC FUNCTION PANEL w/ CMP, BMP or HEPATIC PROFILE us Harvey Domínguez III, MD LAB BLOOD ORDERABLE S Final Result [facility] [address] [place], [place] [address] * (ABNORMAL) Hepatic Function Panel (11/04/2024 8:46 AM EDT) Total Bilirubin 1.3 0.0 - 1.5 mg/dL 11/04/2024 10:06 AM EDT [facility] Bilirubin, Direct 0.57(H) 0.00 - 0.40 mg/dL 11/04/2024 10:06 AM EDT [facility] AST 20 13 - 39 U/L 11/04/2024 10:06 AM EDT [facility] ALT 67(H) 7 - 52 U/L 11/04/2024 10:06 AM EDT [facility] Alkaline Phosphatase 133(H) 36 - 125 U/L 11/04/2024 10:06 AM EDT [facility] Total Protein 5.4(L) 6.4 - 8.9 g/dL 11/04/2024 10:06 AM EDT [facility] Albumin 3.5 3.5 - 5.7 g/dL 11/04/2024 10:06 AM EDT [facility] Bilirubin, Indirect 0.73 0.00 - 1.10 mg/dL 11/04/2024 10:06 AM EDT [facility] Plasma 11/04/2024 8:46 AM EDT 11/04/2024 9:32 AM EDT Narrative [facility] - 11/04/2024 10:06 AM EDT Standing orders to be drawn: Every Sunday and before 9am and prior to patient taking morning medications. Liver Transplant Fax results to [phone] Call Critical results to [phone] DO NOT REPLACE RENAL PANEL or HEPATIC FUNCTION PANEL w/ CMP, BMP or HEPATIC PROFILE Harvey Domínguez III, MD LAB BLOOD ORDERABLE S Final Result [facility] [address] * Tacrolimus level (11/04/2024 8:46 AM EDT) Tacrolimus (LC-MS) 9.0 3.0 - 15.0 ng/mL 11/04/2024 3:14 PM EDT [facility] Comment:Performed via liquid chromatography tandem mass spectrometry. Detection limit: 1 ng/mL. Individual target concentrations may vary due to target organ and time after transplant. This test has been developed and its performance characteristics determined by [facility] which is certified under [...] morning medications. Liver Transplant Fax results to [phone] Call Critical results to [phone] Harvey Domínguez III, MD LAB BLOOD ORDERABLE S Final Result [facility] [address] documented in this encounter Visit Diagnoses Diagnosis Liver replaced by transplant (CMS-HCC)- Primary Liver replaced by transplant Immunosuppressive management encounter following liver transplant (CMS-HCC) Liver replaced by transplant (CMS-HCC) Liver replaced [...] as of this encounter Care Teams Customer Consultant Relationship Specialty Start Date End Date Enedina Mcguire NP [address] [place] [address] PCP - General Internal Medicine 10/05/24 Maureen Pantoja, ЮЛИЯ Txp Post Coordinator Transplant Hepatology 10/28/24 documented as of this encounter
--- OUTSIDE RECORDS SUMMARY | 2024-11-13 08:51 | XMS_ITS | Encounter Summary ---
Author Organization [facility] Address [address] [place] [address] Care Team Providers Care Plush Finisher Name Role Phone Enedina Mcguire NP Primary Care Provider + [phone] Maureen Pantoja RN Unavailable Unavail able Source [...] release of HIV test results or diagnoses. [id number] Reason for Visit * Reason Comments Results Encounter Details Date Type Department Care Team (Late st Contact Info) Description 11/04/2024 Telephone [facility] Liver Transplant at [address] [address] Maureen Pantoja, RN Results Social [...] In the past 12 months has e [employer], gas, oil, or water [employer] threatened to shut off services in your [...] AM EDT Hospital Encounter [facility] ENDOSCOPY [address] [place] [phone] Chris Orosco MD [address] [place] [phone] 12/05/2024 8:01 AM EDT - 12/05/2024 8:31 AM EDT Surgery [facility] ENDOSCOPY [address] [place] [phone] Chris Orosco MD [address] [place] [phone] EGD Scheduled Procedures Name Priority Associated Diagnoses [...] documented as of this encounter Care Teams Plush Finisher Relationship Specialty Start Date End Date Enedina Mcguire NP [address] [place] [address] PCP - General Internal Medicine 10/05/24 Maureen Pantoja, ЮЛИЯ Txp Post Coordinator Transplant Hepatology 10/28/24 documented as of this encounter
--- OUTSIDE RECORDS SUMMARY | 2024-11-13 08:51 | XMS_ITS | Encounter Summary ---
Author Organization [facility] Address [address] [place] [address] Care Team Providers Care Research Staff Member Name Role Phone Enedina Mcguire NP Primary Care Provider [phone] Source Comments This information has been disclosed [...] release of HIV test results or diagnoses. [id number] Health Encounter Details Date Type Department Care Team (Late st Contact Info) Description 10/27/2024 Chart Note [facility] Kidney Transplant at [address] [place] [phone] Karen Rosen, RN I have verified that the donor serologies entered in [facility] match the donor Social History Tobacco [...] Recorded In the past 12 months has [employer], gas, oil, or water [employer] threatened to shut off services in your [...] verified that the donor serologies entered in [employer] match the donor serologies that are listed in [facility]. documented in this encounter Plan of Treatment Upcoming Encounters Date Type Department Care Team (Late st Contact Info) Description 12/05/2024 8:01 AM EDT Hospital Encounter [facility] ENDOSCOPY [address] [place] [address] Chris Orosco MD [address] [place] [address] 12/05/2024 8:01 AM EDT - 12/05/2024 8:31 AM EDT Surgery [facility] ENDOSCOPY [address] [place] [address] Chris Orosco MD [address] [place] [phone] EGD Scheduled Procedures Name Priority Associated Diagnoses Date/Ti me EGD Cirrhosis of liver with ascites, unspecified hepatic cirrhosis type ([facility]) 12/05/2024 8:01 AM EDT documented as of this encounter Visit Diagnoses Not on filedocumented in this encounter Additional Health Concerns Infection Onset Date Last Indicated Resolved Time C. difficile 09/09/2024 09/09/2024 10/27/2024 8:30 AM EDT Assessment Noted Time PHQ-9 Depression Total Score: 17 025 11:00 AM EDT documented as of this encounter Care Teams Research Staff Member Relationship Specialty Start Date End Date Enedina Mcguire NP [address] [place] [address] PCP - General Internal Medicine 10/05/24 documented as of this encounter
--- OUTSIDE RECORDS SUMMARY | 2024-11-13 08:51 | XMS_ITS | Encounter Summary ---
Author Organization [facility] Address [facility] [place] [address] Care Team Providers Care Shactor Name Role Phone Enedina Mcguire NP Primary Care Provider [phone] Source Comments This information has been disclosed [...] release of HIV test results or diagnoses. [id number] Health Encounter Details Date Type Department Care Team (Late st Contact Info) Description 10/20/2024 Orders Only [facility] [address] [place] [address] Abdulkadir Gaspar MD [address] [facility] [address] [facility] [place] [address] Social History Tobacco Use Types Packs/Day Years Used Date Smoking Tobacco: Former Cigarettes Smokeless Tobacco: Current Alcohol Use Standard Drinks/Week Comments Yes 0 (1 standard drink = 0.6 oz pure alcohol) History of alcohol abuse, reports no use in 3 week- typically endorses use as 4 glasses of wine a days Utilities Answer Date Recorded In the past 12 months has [employer], gas, oil, or water company threatened to [...] Description 12/05/2024 8:01 AM EDT Hospital Encounter [facility] ENDOSCOPY [address] [place] [address] Chris Orosco MD [address] [place] [phone] 12/05/2024 8:01 AM EDT - 12/05/2024 8:31 AM EDT Surgery [facility] ENDOSCOPY [address] [place] [address] Chris Orosco MD [address] [place] [address] EGD Scheduled Procedures Name Priority Associated Diagnoses [...] MD LAB BLOOD ORDERABLES Final Resul t [facility] [address] [place] [address] * Hox - ABO Typing Report (10/20/2024 5:03 PM EDT) 10/20/2024 5:03 PM EDT us Abdulkadir Hubert ABDULLAHI LAB BLOOD ORDERABLES Final Resul t [facility] [address] [place] [address] documented in this encounter Visit Diagnoses Not on filedocumented in this encounter Additional Health Concerns Infection Onset Date Last Indicated Resolved Time C. difficile 09/09/2024 09/09/2024 10/27/2024 8:30 AM EDT Assessment Noted Time PHQ-9 Depression Total Score: 17 025 11:00 AM EDT documented as of this encounter Care Teams Shactor Relationship Specialty Start Date End Date Enedina Mcguire NP [address] [place], [place] [phone] PCP - General Internal Medicine 10/05/24 documented as of this encounter
--- OUTSIDE RECORDS SUMMARY | 2024-11-13 08:51 | XMS_ITS | Encounter Summary ---
Author Organization [facility] Address [address] [place] [address] Care Team Providers Care Auxiliary Powerplant Operator Name Role Phone Enedina Mcguire NP Primary Care Provider + [phone] Maureen Pantoja RN Unavailable Unavail able Source [...] release of HIV test results or diagnoses. [id number] Reason for Visit * Reason Comments Transplant Review Encounter Details Date Type Department Care Team (Late st Contact Info) Description 10/27/2024 Pharmacy Services [facility] Dis[facility] [address] [place] [phone] Opal Cox, TaniD Social History Tobacco [...] Recorded In the past 12 months has [employer], gas, oil, or water [employer] threatened to shut off services in your [...] of Care Patient's prescriptions were sent to [facility] Discharge [facility] for a Transplant benefits review. Julien Anderson received a Kidney/Liver Transplant on 10/26-10/27/24 at [facility]. The patient's discharge medications were sent to [facility] Discharge [facility] for anticipated discharge of 11/03/24. The patient has a [employer] [facility] commercial insurance plan to cover prescriptions. Currently, the patient's co-pay for all medications is listed below: Acetaminophen 325 mg - $4 Alcohol swabs - $0 Aspiring 81mg - $4 Atovaquone 750 mg/5 ml - $0 Dexcom G7 Lean Facilitator- $0 Dexcom G7 Sensor- $0 Eliquis 2.5mg [...] $0 Specialty Pharmacy Requirements: Name of Pharmacy: [facility] Specialty Phone Number: Prescriptions Transferred at Discharge Date: The patient could have potential eligibility for the pharmaceutical company medication assistance program for each of these medications. Mr Anderson's total cost of discharge prescriptions is currently $16. This total is subject to changewith the addition or change in any of the prescriptions sent to [facility] Discharge Pharmacy. A call was placed to Mr Anderson's room to discuss total cost amount from above and encourage patientto set up profile with [facility] Specialty. [facility] Specialty Pharmacy confirmed delivery of immunosuppressants to [...] The patient has been referred to the [facility]ty [facility] Transplant Team. The patient should visit [facility]ication [facility] for assistance if problems arise with the prescriptions. If questions arise regarding discharge medications, please call [phone]. Opal Cox Pharm D Transitions of Care [phone] documented in this encounter Plan of Treatment Upcoming Encounters Date Type Department Care Team (Late st Contact Info) Description 12/05/2024 8:01 AM EDT Hospital Encounter [facility] ENDOSCOPY [address] [place] [phone] Chris Orosco MD [address] [place] [phone] 12/05/2024 8:01 AM EDT - 12/05/2024 8:31 AM EDT Surgery [facility] ENDOSCOPY [address] [place] [phone] Chris Orosco MD [address] [place] [phone] EGD Scheduled Procedures Name Priority Associated Diagnoses [...] documented as of this encounter Care Teams Auxiliary Powerplant Operator Relationship Specialty Start Date End Date Enedina Mcguire NP [address] [place] [address] PCP - General Internal Medicine 10/05/24 Maureen Pantoja, ЮЛИЯ Txp Post Coordinator Transplant Hepatology 10/28/24 documented as of this encounter
--- OUTSIDE RECORDS SUMMARY | 2024-11-13 08:51 | XMS_ITS | Encounter Summary ---
Author Organization [facility] Address [address] [place] [address] Care Team Providers Care Animal Care Service Worker Name Role Phone Enedina Mcguire NP Primary Care Provider + [phone] Maureen Pantoja RN Unavailable Unavail able Source [...] release of HIV test results or diagnoses. [id number] Health Encounter Details Date Type Department Care Team (Late st Contact Info) Description 10/27/2024 Chart Note [facility] Liver Transplant at [address] [place] [phone] Crista Power, RN I introduced myself as inpatient liver/kidney cancer program coordinator, Social History Tobacco Use Types Packs/Day Years Used Date Smoking Tobacco: Former Cigarettes Smokeless Tobacco: Current Alcohol Use Standard Drinks/Week Comments Yes 0 (1 standard drink = 0.6 oz pure alcohol) History of alcohol abuse, reports no use in 3 week- typically endorses use as 4 glasses of wine a days Utilities Answer Date Recorded In the past 12 months has [employer], gas, oil, or water [employer] threatened to shut off services in [...] EDT I introduced myself as inpatient liver/kidney cancer program coordinator, explained role and provided my contact [...] Hospital Encounter [facility] ENDOSCOPY [address] [place] [address] Chris Orosco MD [address] [place] [phone] 12/05/2024 8:01 AM EDT - 12/05/2024 8:31 AM EDT Surgery [facility] ENDOSCOPY [address] [place] [address] Chris Orosco MD [address] [place] [phone] EGD Scheduled Procedures Name Priority Associated Diagnoses [...] documented as of this encounter Care Teams Animal Care Service Worker Relationship Specialty Start Date End Date Enedina Mcguire NP [address] [place] [address] PCP - General Internal Medicine 10/05/24 Maureen Pantoja, ЮЛИЯ Txp Post Coordinator Transplant Hepatology 10/28/24 documented as of this encounter
--- OUTSIDE RECORDS SUMMARY | 2024-11-13 08:51 | XMS_ITS | Encounter Summary ---
Author Organization [facility] Address [address] [place] [address] Care Team Providers Care Medical Asst Name Role Phone Enedina Mcguire NP Primary Care Provider [phone] Source Comments This information has been disclosed [...] release of HIV test results or diagnoses. [id number] Reason for Visit * Reason Comments Prescription Issue RX Clarification Req uest Encounter Details Date Type Department Care Team (Late st Contact Info) Description 10/20/2024 Telephone [facility] at [facility] Office [address] [place] [phone] Gerri Peterson MD [address] [place] [address] Prescription Issue (RX Clarification Request [...] Recorded In the past 12 months has [employer], gas, oil, or water [employer] threatened to shut off services in your [...] to be filled Please return call to [phone]. documented in this encounter Plan of Treatment Upcoming Encounters Date Type Department Care Team (Late st Contact Info) Description 12/05/2024 8:01 AM EDT Hospital Encounter [facility] ENDOSCOPY [address] [place] [phone] Chris Orosco MD [address] [place] [phone] 12/05/2024 8:01 AM EDT - 12/05/2024 8:31 AM EDT Surgery [facility] ENDOSCOPY [address] [place] [address] Chris Orosco MD [address] [place] [phone] EGD Scheduled Procedures Name Priority Associated Diagnoses [...] as of this encounter Care Teams Medical Asst Relationship Specialty Start Date End Date Enedina Mcguire NP [address] [place] [address] PCP - General Internal Medicine 10/05/24 documented as of this encounter
--- OUTSIDE RECORDS SUMMARY | 2024-11-13 08:51 | XMS_ITS | Encounter Summary ---
Author Organization [facility] Address [address] [place] [address] Care Team Providers Care Railroad Track Repair Supervisor Name Role Phone Enedina Mcguire NP Primary Care Provider + [phone] Maureen Pantoja RN Unavailable Unavail able Source [...] release of HIV test results or diagnoses. [id number] Health Encounter Details Date Type Department Care Team (Late st Contact Info) Description 11/04/2024 [facility] Kidney Transplant at [address] [place] [phone] Ben Weiss, DMITRY Social History Tobacco Use [...] Recorded In the past 12 months has [employer], gas, oil, or water [employer] threatened to shut off services in your [...] 12/05/2024 8:01 AM EDT Hospital Encounter [facility] ENDOSCOPY [address] [place] [phone] Chris Orosco MD [address] [place] [phone] 12/05/2024 8:01 AM EDT - 12/05/2024 8:31 AM EDT Surgery [facility] ENDOSCOPY [address] [place] [address] Chris Orosco MD [address] [place] [phone] EGD Scheduled Procedures Name Priority Associated Diagnoses Date/Ti me EGD Cirrhosis of liver with ascites, unspecified hepatic cirrhosis type ([facility]) 12/05/2024 8:01 AM EDT documented as of this encounter Visit Diagnoses Not on filedocumented in this encounter Additional Health Concerns 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
--- OUTSIDE RECORDS SUMMARY | 2024-11-13 08:53 | XMS_ITS | Encounter Summary ---
Author Organization [facility] Address [address] [place] [address] Care Team Providers Care Radius Corner Machine Operator Name Role Phone Enedina Mcguire NP Primary Care Provider + [phone] Maureen Pantoja RN Unavailable Unavail able Source [...] release of HIV test results or diagnoses. [id number] Health Encounter Details Date Type Department Care Team (Late st Contact Info) Description 11/03/2024 Telephone [facility] Liver Transplant at [address] [place] [phone] Marisela Martinez MA Social History Tobacco [...] Recorded In the past 12 months has [employer], gas, oil, or water [employer] threatened to shut off services in your [...] he will have his labs drawn at [facility] prior to clinic on 11/03. documented in this encounter Plan of Treatment Upcoming Encounters Date Type Department Care Team (Late st Contact Info) Description 12/05/2024 8:01 AM EDT Hospital Encounter [facility] ENDOSCOPY [address] [place] [address] Chris Orosco MD [address] [place] [phone] 12/05/2024 8:01 AM EDT - 12/05/2024 8:31 AM EDT Surgery [facility] ENDOSCOPY [address] [place] [address] Chris Orosco MD [address] [place] [phone] EGD Scheduled Procedures Name Priority Associated Diagnoses [...] documented as of this encounter Care Teams Radius Corner Machine Operator Relationship Specialty Start Date End Date Enedina Mcguire NP [address] [place] [address] PCP - General Internal Medicine 10/05/24 Pantoja, Maureen Leeanna, RN Txp Post Coordinator Transplant Hepatology 10/28/24 documented as of this encounter
--- OUTSIDE RECORDS SUMMARY | 2024-11-13 08:53 | XMS_ITS | Encounter Summary ---
Author Organization [facility] Address [address] [place] [address] Care Team Providers Care Acid Painter Name Role Phone Enedina Mcguire NP Primary Care Provider + [phone] Maureen Pantoja RN Unavailable Unavail able Source [...] release of HIV test results or diagnoses. [id number] Health Encounter Details Date Type Department Care Team (Late st Contact Info) Description 11/03/2024 Chart Note [facility] Liver Transplant at [address] [place] [phone] Hillary Fernandes, TaniD Liver Transplant Pharmacy Discharge [...] In the past 12 months has e [employer], gas, oil, or water [employer] threatened to shut off services in your [...] day. blood-glucose meter (TRUE METRIX GLUCOSE METER) [facility] Use to test blood sugar up to [...] = 12 units lancets (ACCU-CHEK SOFTCLIX LANCETS) [facility] Use to test blood sugar up to [...] times a day. naloxone (NARCAN) 4 mg/actuation Mellott Apply 1 spray in one nostril if [...] Solid Organ Transplant Clinical Specialist Contact via [employer] documented in this encounter Plan of Treatment Upcoming Encounters Date Type Department Care Team (Late st Contact Info) Description 12/05/2024 8:01 AM EDT Hospital Encounter [facility] ENDOSCOPY [address] [place] [phone] Chris Orosco MD [address] [place] [phone] 12/05/2024 8:01 AM EDT - 12/05/2024 8:31 AM EDT Surgery [facility] ENDOSCOPY [address] [place] [phone] Chris Orosco MD [address] [place] [phone] EGD Scheduled Procedures Name Priority Associated Diagnoses [...] as of this encounter Care Teams Acid Painter Relationship Specialty Start Date End Date Enedina Mcguire NP [address] [place] [address] PCP - General Internal Medicine 10/05/24 Maureen Pantoja, RN Txp Post Coordinator Transplant Hepatology 10/28/24 documented as of this encounter
--- OUTSIDE RECORDS SUMMARY | 2024-11-13 08:53 | XMS_ITS | Encounter Summary ---
Author Organization [facility] Address [address] [place] [address] Care Team Providers Care Foot Drill Operator Name Role Phone Enedina Mcguire NP Primary Care Provider [phone] Source Comments This information has been disclosed [...] release of HIV test results or diagnoses. [id number] Health Encounter Details Date Type Department Care Team (Late st Contact Info) Description 10/17/2024 Pharmacy Services [facility]charge [facility] [address] [place] [phone] Qu, Ridge, RPh Social History Tobacco [...] Recorded In the past 12 months has [employer], gas, oil, or water company threatened to [...] any time in the past 12 m [facility], were you homeless or living in [...] this encounter Progress Notes * Ridge Menjivar, [facility] - 10/17/2024 9:47 AM EDT [...] member, friend, or other person (including a correction officer reformatory). The at-risk individual reports no known sensitivity [...] 12/05/2024 8:01 AM EDT Hospital Encounter [facility] ENDOSCOPY [address] [place] [phone] Chris Orosco MD [address] [place] [phone] 12/05/2024 8:01 AM EDT - 12/05/2024 8:31 AM EDT Surgery [facility] ENDOSCOPY [address] [place] [phone] Crhis Orosco MD [address] [place] [phone] EGD Scheduled Procedures Name Priority Associated Diagnoses [...] as of this encounter Care Teams Foot Drill Operator Relationship Specialty Start Date End Date Enedina Mcguire NP [address] [place] [address] PCP - General Internal Medicine 10/05/24 documented as of this encounter
--- OUTSIDE RECORDS SUMMARY | 2024-11-13 08:53 | XMS_ITS | Encounter Summary ---
Author Organization [facility] Address [facility] [place] [address] Care Team Providers Care Computer Numeric Control Setter Name Role Phone Enedina Mcguire NP Primary Care Provider + [phone] Maureen Pantoja RN Unavailable Unavail able Source [...] release of HIV test results or diagnoses. [id number] Health Encounter Details Date Type Department Care Team (Latest Contact Info) Description 10/29/2024 Travel Social History Tobacco Use Types Packs/Day Years Used Date Smoking Tobacco: Former Cigarettes Smokeless Tobacco: Current Alcohol Use Standard Drinks/Week Comments Yes 0 (1 standard drink = 0.6 oz pure alcohol) History of alcohol abuse, reports no use in 3 week- typically endorses use as 4 glasses of wine a days Utilities Answer Date Recorded In the past 12 months has [employer], [employer], oil, or water [employer] threatened to shut off services in [...] alcohol? Never 10/29/2024 10:02 PM EDT Vandana Vilchis, ЮЛИЯ Q2: How many drinks containing alcohol do you have on a typical day when you are drinking? Patient does not drink 10/29/2024 10:02 PM EDT Vandana Vilchis RN Q3: How often do you have six or more drinks on one occasion? Never 10/29/2024 10:02 PM EDT Vandana Vilchis RN documented as of this encounter Plan of Treatment Upcoming Encounters Date Type Department Care Team (Late st Contact Info) Description 12/05/2024 8:01 AM EDT Hospital Encounter [facility] ENDOSCOPY [address] [place] [phone] Chris Orosco MD [address] [place] [phone] 12/05/2024 8:01 AM EDT - 12/05/2024 8:31 AM EDT Surgery [facility] ENDOSCOPY [address] [place] [phone] Chris Orosco MD [address] [place] [phone] EGD Scheduled Procedures Name Priority Associated Diagnoses Date/Ti me EGD Cirrhosis of liver with ascites, unspecified hepatic cirrhosis type ([facility]) 12/05/2024 8:01 AM EDT documented as of this encounter Visit Diagnoses Not on filedocumented in this encounter Additional Health Concerns Assessment Noted Time PHQ-9 Depression Total Score: 17 025 11:00 AM EDT documented as of this encounter Care Teams Computer Numeric Control Setter Relationship Specialty Start Date End Date Enedina Mcguire NP [address] [place] [address] PCP - General Internal Medicine 10/05/24 Maureen Pantoja, ЮЛИЯ Txp Post Coordinator Transplant Hepatology 10/28/24 documented as of this encounter
--- OUTSIDE RECORDS SUMMARY | 2024-11-13 08:53 | XMS_ITS | Encounter Summary ---
Author Organization [facility] Address [address] [place] [address] Care Team Providers Care Commander Internal Affairs Name Role Phone Enedina Mcguire NP Primary Care Provider + [phone] Maureen Pantoja RN Unavailable Unavail able Source [...] release of HIV test results or diagnoses. [id number] Health Encounter Details Date Type Department Care Team (Late st Contact Info) Description 10/29/2024 Education Chart Note [facility] Liver Transplant at [address] [place] [phone] Crista Power, RN Social History Tobacco [...] Recorded In the past 12 months has [employer], gas, oil, or water [employer] threatened to shut off services in your [...] of Infection/Rejection [x] 5. When to call electronic funds transfer coordinator [x] 6. Outpatient follow up including [...] times 0900/2100. Julien Anderson has to use [facility]. Meds are getting delivered 10/31/24. documented in this encounter Plan of Treatment Upcoming Encounters Date Type Department Care Team (Late st Contact Info) Description 12/05/2024 8:01 AM EDT Hospital Encounter [facility] ENDOSCOPY [address] [place] [address] Chris Orosco MD [address] [place] [address] 12/05/2024 8:01 AM EDT - 12/05/2024 8:31 AM EDT Surgery [facility] ENDOSCOPY [address] [place] [address] Chris Orosco MD [address] [place] [phone] EGD Scheduled Procedures Name Priority Associated Diagnoses Date/Ti me EGD Cirrhosis of liver with ascites, unspecified hepatic cirrhosis type ([facility]) 12/05/2024 8:01 AM EDT documented as of this encounter Visit Diagnoses Not on filedocumented in this encounter Additional Health Concerns Assessment Noted Time PHQ-9 Depression Total Score: 17 025 11:00 AM EDT documented as of this encounter Care Teams Commander Internal Affairs Relationship Specialty Start Date End Date Enedina Mcguire NP [address] [place] [phone] PCP - General Internal Medicine 10/05/24 Maureen Pantoja, ЮЛИЯ Txp Post Coordinator Transplant Hepatology 10/28/24 documented as of this encounter
--- OUTSIDE RECORDS SUMMARY | 2024-11-13 08:54 | XMS_ITS | Clinical Summary ---
Author Organization [facility] Address [facility] [place] [address] Care Team Providers Care Sales And Marketing Engineer Name Role Phone Enedina Mcguire NP Primary Care Provider + [phone] Maureen Pantoja RN Unavailable Unavail able Source [...] therelease of HIV test results or diagnoses. [id number] Allergies Active Allergy Reactions Criticality Noted [...] EDT 025 Active naloxone (NARCAN) 4 mg/actuation [place] Apply 1 spray in one nostril if [...] hours. 200 tablet 11/03/19 10:20 AM EDT 025 Active famotidine (PEPCID) 20 MG tablet Take 1 tablet (20 mg total) by mouth 2 times a day. 60 tablet 2 11/03/19 10:20 AM EDT 025 Active senna-docusate (SENNOSIDES-DO CUSATE SODIUM) 8.6-50 mg per tablet Take 1 tablet by mouth at bedtime as needed for Constipation. 30 tablet 11/03/19 10:20 AM EDT Active polyethylene glycol (GLYCOLAX) 17 gram/dose powder [...] Use as instructed. 200 each 1 11/03/19 25 10:20 AM EDT 025 Active blood-glucose meter (TRUE METRIX GLUCOSE METER) [facility] Use to test blood sugar up to 4 times a day. 1 each 11/03/19 10:20 AM EDT Active blood sugar diagnostic (GLUCOSE BLOOD) Strp Use to test blood sugar up to 4 times a day. 100 strip 11/03/19 10:20 AM EDT Active lancets (ACCU-CHEK SOFTCLIX LANCETS) Misc Use to [...] 30 tablet 11/03/19 10:20 AM EDT Active apixaban (ELIQUIS) 2.5 mg Tab Take 1 tablet (2.5 mg total) by mouth 2 times a day for 24 days. Last dose 11/26/24 48 tablet 11/03/19 10:20 AM EDT 025 2024 Active fluconazole (DIFLUCAN) 200 MG tablet Take 1 tablet (200 mg total) by mouth daily for 24 days. Last day 11/26/24 24 tablet 11/03/19 25 10:20 AM EDT 025 2024 Active tacrolimus (PROGRAF) 1 MG capsule Take 6 capsules (6 mg total) by mouth 2 times a day. Use as directed 600 capsule 5 Active magnesium chloride (SLOW MAG) 71.5 mg TbECIndication s:hypomagnesem ia Take 2 tablets (143 mg total) by mouth 3 times a day. Indications: hypomagnesemia 180 tablet 2 025 2024 Active torsemide (DEMADEX) 20 MG tablet Take 0.5 tablets (10 mg total) by mouth daily. 30 tablet Active predniSONE (DELTASONE) 5 MG tablet Take 3 tablets (15 mg total) by mouth daily. 120 tablet 2 Active HYDROmorphone (DILAUDID) 2 MG tabletIndicati ons:Abdominal pain, unspecified abdominal location Take 1 tablet (2 mg total) by mouth every 6 hours as needed for up to 7 days. 28 tablet 025 2024 Active folic acid (FOLVITE) 1 [...] total) by mouth daily. 60 tablet 2 2024 Discontinued(S top Taking at Discharge) ciprofloxacin [...] tablet 2024 Discontinued(S top Taking at Discharge) lactulose (CHRONULAC) 10 gram/15 mL solution Take 30 mLs (20 g total) by mouth 3 times a day. 946 mL 10/18/19 10:24 AM EDT 025 2024 Discontinued(S top Taking at Discharge) methocarbamoL (ROBAXIN) 500 MG tablet Take 1 tablet (500 mg total) by mouth 3 times a day. 90 tablet 10/18/19 10:24 AM EDT 025 2024 Discontinued(R efill / Reorder) oxyCODONE (ROXICODONE) 5 MG immediate release tabletIndicati ons:Pain Take 1 tablet (5 mg total) by mouth every 6 hours as needed for up to 3 days. 12 tablet 10/18/19 25 10:24 AM EDT 2024 midodrine (PROAMATINE) 10 MG tablet Take 1 tablet (10 mg total) by mouth 3 times a day. 90 tablet 10/18/19 25 10:24 AM EDT 2024 Discontinued(S top Taking at Discharge) sodium bicarbonate 650 MG tablet Take 2 tablets (1,300 mg total) by mouth 3 times a day. 90 tablet 2024 Discontinued rifAXIMin (XIFAXAN) 550 mg Tab tablet Take 1 tablet (550 mg total) by mouth 2 times a day. 60 tablet 2024 Discontinued(S top Taking at Discharge) ciprofloxacin HCl (CIPRO) 500 MG tablet Take 1 tablet (500 mg total) by mouth daily. 30 tablet 2024 Discontinued(S top Taking at Discharge) ursodioL [...] mouth daily for 30 days. 30 tablet 2024 Discontinued mycophenolate (CELLCEPT) 250 mg capsule Take 2 capsules (500 mg total) by mouth 2 times a day. 120 capsule 5 2024 Discontinued predniSONE (DELTASONE) 5 MG tablet Take 4 tablets (20 mg total) by mouth daily. 120 tablet 2 11/03/19 25 10:20 AM EDT /01/ 2025 Discontinued tacrolimus (PROGRAF) 1 MG capsule Take 10 capsules (10 mg total) by mouth 2 times a day. Use as directed 600 capsule 5 2024 Discontinued aspirin 81 MG chewable tablet Chew 1 tablet (81 mg total) by mouth daily. 30 tablet 11 2024 Discontinued(S top Taking at Discharge) methocarbamoL [...] the morning and at bedtime. 15 mL 2 2024 Discontinued(S top Taking at Discharge) FREESTYLE NIDA 3 READER [facility] Use 1 each as directed. 1 each 2024 Discontinued(S top Taking at Discharge) blood-glucose sensor (FREESTYLE NIDA 3 PLUS SENSOR) Radha Use 1 sensor as directed every 15 days. 2 each 2024 Discontinued(S top Taking at Discharge) DEXCOM G7 TRAPEZE ARTIST Misc Use reader as directed. 1 each [...] 2 times a day. 28 tablet 11/03/19 25 10:20 AM EDT 025 2024 Discontinued(T herapy [...] directed 600 capsule 5 025 2024 Discontinued torsemide (DEMADEX) 20 MG tablet Take 1 tablet (20 mg total) by mouth daily. 30 tablet 025 2024 Discontinued tacrolimus (PROGRAF) 1 MG capsule Take 5 capsules (5 mg total) by mouth 2 times a day. Use as directed 600 capsule 5 025 2024 Discontinued linezolid (ZYVOX) 600 mg tablet Take 1 tablet (600 mg total) by mouth 2 times a day. 28 tablet 11/03/19 3:06 PM EDT 2024 Discontinued(T herapy Completed / No Longer Needed) HYDROmorphone (DILAUDID) 2 MG tabletIndicati ons:Abdominal pain, unspecified abdominal location Take 1 tablet (2 mg total) by mouth every 6 hours as needed for up to 7 days. 28 tablet 025 2024 Discontinued(R efill / Reorder) Active Problems Problem Noted Date Diagnosed Date [...] with SBP, s/p CTX x5d; will cont length control tester ppx with Cipro 500mg daily - HE: [...] Encounters Date Type Department Care Team Description 11/11/2024 10:30 AM EDT Office Visit [facility] Liver Transplant at [address] [phone] Unknown, Attending Provider Jessica Colon Arrived 11/11/2024 10:00 AM EDT Office Visit [facility] Liver Transplant at [address] [place] [address] Cosmo Pacheco MD Quillin, Ralph Cutler III, MD Encounter for therapeutic drug monitoring (Primary Dx); Abdominal pain, unspecified abdominal location 11/11/2024 8:50 AM EDT [facility] [address] [place] [phone] Harvey Domínguez III, MD Liver replaced by transplant ([facility]); Immunosuppressive management encounter following liver transplant ([facility]); Kidney transplant recipient 11/11/2024 Telephone [facility] Liver Transplant at [address] [place] [address] Maureen Pantoja, RN Results 11/10/2024 Orders Only [facility] Liver Transplant at [address] [place] [address] Maureen Pantoja, ЮЛИЯ Liver transplant recipient ([facility]) (Primary Dx); Kidney transplant recipient; Immunosuppressive management encounter following liver transplant (CMS-HCC) 11/10/2024 Orders Only [facility] Liver Transplant at [address] [place] [address] Maureen Pantoja, ЮЛИЯ 11/09/2024 Telephone [facility] [address] [place] [address] Unknown, Attending Provider After Hours Call (Passing blood through stool states started this morning has had 3 bloody bowel movements kidney and liver txp done 2 weeks ago) 11/07/2024 Telephone [facility] Liver Transplant at [address] [address] Marlene Ro MA 11/07/2024 Telephone [facility] Liver Transplant at [address] [place] [address] Maureen Pantoja, ЮЛИЯ Results 11/07/2024 Chart Note [facility] Liver Transplant at [address] [address] Marlene Ro MA FK Pending 11/04/2024 10:10 AM EDT Office Visit [facility] Liver Transplant at [address] [place] [address] Leisa Juarez MD Kidney transplant recipient (Primary Dx); Diarrhea of presumed infectious origin; Hypomagnesemia; Hypervolemia, unspecified hypervolemia type; Liver transplant recipient (CMS-HCC); Other hypervolemia; Hyperparathyroidism ([facility]); Nausea and vomiting, unspecified vomiting type 11/04/2024 8:40 AM EDT Office Visit [facility] Liver Transplant at [address] [place] [address] Cosmo Pacheco MD Liver transplant recipient ([facility]) (Primary Dx); Alcoholic cirrhosis of liver with ascites ([facility]); Kidney transplant recipient; Acute kidney injury superimposed on CKD ([facility]); CKD (chronic kidney disease) stage 4, GFR 15-29 ml/min (CMS-HCC); Immunosuppressive management encounter following liver transplant ([facility]); Abdominal pain, unspecified abdominal location 11/04/2024 Telephone [facility] Liver Transplant at [address] [address] Maureen Pantoja, ЮЛИЯ Results 11/04/2024 Results Follow-Up [facility] Liver Transplant at [address] [address] Maureen Pantoja, ЮЛИЯ Tacrolimus level, Hepatic Function Panel, Renal Function Panel w/EGFR, Additional followed-up results: 3 11/04/2024 Social Work [facility] Liver Transplant at [address] [address] Kaylin Willard MSW 11/04/2024 Nutrition [facility] Kidney Transplant at [address] [phone] Ben Weiss, RD 11/03/2024 Chart Note [facility] Liver Transplant at [address] [address] Hillary Fernandes, [facility] Liver Transplant Pharmacy Discharge Note 11/03/2024 Telephone [facility] Liver Transplant at [address] [address] Marisela Martinez MA 10/31/2024 Orders Only [facility] Liver Transplant at [address] [address] Harvey Domínguez III, MD Liver replaced by transplant ([facility]) (Primary Dx); Immunosuppressive management encounter following liver transplant ([facility]) 10/29/2024 Travel 10/29/2024 Education Chart Note [facility] Liver Transplant at [place] [phone] Crisat Power, RN 10/27/2024 2:34 AM EDT Anesthesia Event [facility] [address] [phone] Rocky Manning MD Kopel, Lior, MD 10/27/2024 2:00 AM EDT - 10/27/2024 6:54 AM EDT Surgery [address] [phone] Harvey Domínguez III, MD Donor Kidney Transplant , Back Bench Preparation Donor Kidney, Baseline Kidney transplant biopsy , Insertion of Indwelling Stent , Removal of Perihepatic packing 10/27/2024 Pharmacy Services [facility] [address] [place] [address] Opal Cox, Lissett 10/27/2024 Chart Note [facility] Kidney Transplant at [address] [phone] Karen Rosen, RN I have verified that the donor serologies entered in [facility] match the donor 10/27/2024 Chart Note [facility] Liver Transplant at [address] [phone] Crista Power, RN I introduced myself as inpatient liver/kidney community health coordinator, 10/27/2024 Orders Only [facility] Pancreas Trans[facility] at [facility] [address] [place] [phone] Abdulkadir Gaspar MD 10/26/2024 Chart Note [facility] Kidney Transplant at [address] [address] Geri Vasquez RN 10/26/2024 Chart Note [facility] Liver Transplant at [address] [facility] [place] [address] Geri Vasquez RN 10/25/2024 10:54 PM EDT Anesthesia Event [facility] [address] [facility] [place] [address] Eber Quinones MD Edwards, Anna, MD 10/25/2024 10:30 PM EDT - 10/26/2024 6:12 AM EDT Surgery [facility] [facility] [place] [address] Harvey Domínguez III, MD LIVER TRANSPLANT 10/25/2024 8:46 PM EDT - 11/02/2024 6:23 PM EDT Hospital Encounter [facility]CCP [address] [place] [address] Harvey Domínguez III, MD Haugen, Christine, MD Acute kidney injury superimposed on CKD ([facility]) (Primary Dx); Prophylactic antibiotic; Prolonged QT interval; Immunosuppression ([facility]); Abdominal pain, unspecified abdominal location Discharge Disposition: Home or Self Care WITHOUT Home Care Services 10/25/2024 Travel 10/25/2024 Telephone [facility] Liver Transplant at [address] [place] [address] Krissy Crowell, ЮЛИЯ DDLT patient instructions 10/25/2024 Telephone [facility] Liver Transplant at [address] [place] [address] Krissy Crowell, ЮЛИЯ 10/24/2024 Telephone [facility] Renal Hypertension Clinic at [address] [place] [address] Joann Davies MA Appointment 10/22/2024 Telephone [facility] Liver Transplant at [address] [place] [address] Mary Butler, RN 10/22/2024 Chart Note [facility] Kidney Transplant at [address] [phone] Gladis Rainey RN Received most recent eGFR from today with result of 21. Pt meets CKD 10/22/2024 Chart Note [facility] Liver Transplant at [address] [address] Faraz Carballo, ЮЛИЯ 2nd ABO verified for [facility] listing at the request of JOSE G Butler. 10/22/2024 Telephone [facility] Psychiatry Transplant at [address] [address] Lizeth Warren PsyD 10/22/2024 Chart Note [facility] [address] [place] [phone] Aaron Gonzalez MD Candidacy for a simultaneous liver-kidney transplant 10/22/2024 Status Update [facility] Kidney Transplant at [address] [address] Aaron Gonzalez MD 10/22/2024 Chart Note [facility] Liver Transplant at [address] [place] [address] Mary Butler, RN UNOS VERIFICATION CHECK FORM 10/22/2024 Orders Only [facility] Pancreas Transplant at [facility] [address] [place] [address] Abdulkadir Gaspar MD 10/22/2024 Chart Note [facility] Liver Transplant at [address] [address] Mary Butler, RN 10/21/2024 Telephone [facility] at [facility] [address] [facility] [address] [place] [address] Gerri Peterson MD Medication Management (Requesting RX for New Medication ) 10/21/2024 Refill [facility] Gastroenterology at [facility] [address] [facility] [address] [place] [address] Gerri Peterson MD 10/20/2024 9:10 AM EDT - 10/20/2024 11:59 PM EDT Hospital Encounter [facility] Radiology [address] [place] [address] System, Provider Not In Discharge Disposition: Home or Self Care WITHOUT Home Care Services 10/20/2024 9:10 AM EDT - 10/20/2024 11:59 PM EDT Hospital Encounter [facility] Radiology [address] [place] [address] System, Provider Not In Discharge Disposition: Home or Self Care WITHOUT Home Care Services 10/20/2024 9:10 AM EDT - 10/20/2024 11:59 PM EDT Hospital Encounter [facility] Radiology [address] [place] [address] System, Provider Not In Discharge Disposition: Home or Self Care WITHOUT Home Care Services 10/20/2024 9:10 AM EDT - 10/20/2024 11:59 PM EDT Hospital Encounter [facility] Radiology [address] [place] [address] System, Provider Not In Discharge Disposition: Home or Self Care WITHOUT Home Care Services 10/20/2024 9:10 AM EDT - 10/20/2024 11:59 PM EDT Hospital Encounter [facility] Radiology [address] [place] [address] System, Provider Not In Discharge Disposition: Home or Self Care WITHOUT Home Care Services 10/20/2024 9:10 AM EDT - 10/20/2024 11:59 PM EDT Hospital Encounter [facility] Radiology [address] [place] [address] System, Provider Not In Discharge Disposition: Home or Self Care WITHOUT Home Care Services 10/20/2024 9:10 AM EDT - 10/20/2024 11:59 PM EDT Hospital Encounter [facility] Radiology [address] [place] [address] System, Provider Not In Discharge Disposition: Home or Self Care WITHOUT Home Care Services 10/20/2024 Orders Only [facility] Pan[facility] Trans[facility] at [facility] [address] [place] [phone] Abdulkadir Gaspar MD 10/20/2024 Telephone [facility] Gastroenterology at [facility] [address] [facility] [address] [place] [phone] Gerri Peterson MD Prescription Issue (RX Clarification Request ) 10/20/2024 Refill [facility] Gastroenterology at [facility] [address] [facility] [address] [place] [phone] Gerri Peterson MD 10/20/2024 Telephone [facility] Liver Transplant at [address] [place] [address] Mary Butler RN 10/17/2024 Chart Note [facility] Kidney Transplant at [address] [place] [address] Anny Cote, RN Copy of HLA report scanned into the media tab. Will follow up on GFR 10/17/2024 Chart Note [facility] Kidney Transplant at [address] [place] [address] Anny Cote RN 10/17/2024 Pharmacy Services [facility] [address] [place] [address] [place] [address] Ridge Menjivar, [facility] 10/14/2024 8:42 AM EDT - 10/14/2024 9:27 AM EDT Surgery [facility] Cardiac Plasterer Helper [address] [place], [place] [address] [address] Irving Matta MD Left Heart Cath 10/14/2024 Chart Note [facility] Kidney Transplant at [address] [address] Dean Robles [facility] [address] 10/10/2024 12:01 PM EDT Anesthesia Event [facility] ENDOSCOPY [address] [place] [phone] Cady Bhat MD Nguyen, Quinn, MD 10/10/2024 10:36 AM EDT - 10/10/2024 11:06 AM EDT Surgery [facility] ENDOSCOPY [address] [place] [phone] Lino Soto MD EGD 10/09/2024 Social Work [facility] Liver Transplant at [address] [address] Kaylin Willard MSW 10/09/2024 Chart Note [facility] Kidney Transplant at [address] [address] Dean Robles [facility] [phone] call from Elle buckley [facility] fx [phone] 10/09/2024 Chart Note [facility] Kidney Transplant at [address] [address] Dean Robles [facility] [address] 10/07/2024 Chart Note [facility] Liver Transplant at [address] [place] [address] Mary Butler, RN Spoke with Blair Justin today for evaluation for a combined liver and 10/07/2024 Chart Note [facility] Kidney Transplant at [address] [place] [phone] Anny Cote, RN Received notice of in house evaluation. Message to nephrology 10/07/2024 Chart Note [facility] Kidney Transplant at [address] [phone] Chey Nicole MA This MA received new referral for PTChastity NICHOLAS once financially cleared. 10/07/2024 Chart Note [facility] Kidney Transplant at [address] [phone] Anny Cote RN Simultaneous Liver-Kidney Transplant Referral 10/06/2024 Travel 10/05/2024 11:12 PM EDT - 10/17/2024 10:29 AM EDT Hospital Encounter [facility] [address] [place] [phone] Gómez Blanchard MD Wood, Sharice N, MD Thomas, Stephanie, MD Alcoholic cirrhosis of liver with ascites ([facility]) (Primary Dx); NADIYA (acute kidney injury) ([facility]); Metabolic encephalopathy; SBP (spontaneous bacterial peritonitis) (CMS-HCC); [...] Care WITHOUT Home Care Services 10/05/2024 Telephone [facility] [address] [place] [address] Unknown, Attending Provider After Hours Call 10/01/2024 Telephone [facility] Liver Transplant at [address] [place] [address] Armand Salinas, RN 09/30/2024 Social Work [facility] Liver Transplant at [address] [place] [address] Kaylin Willard MSW 09/29/2024 11:00 AM EDT Office Visit [facility] Psychiatry Transplant at [address] [place] [address] Lizeth Warren PsyD PTSD (post-traumatic stress disorder) (Primary Dx); Alcohol use disorder 09/26/2024 Abstract [facility] Gastroenterology at [facility] [address] [facility] [address] [place] [phone] Gerri Peterson MD 09/25/2024 11:25 AM EDT [facility] [address] [place] [address] Gerri Peterson MD Cirrhosis of liver with ascites, unspecified hepatic cirrhosis type (CMS-HCC); Pre-transplant evaluation for chronic liver disease; Alcoholic cirrhosis of liver without ascites (CMS-HCC) 09/25/2024 Social Work [facility] Liver Transplant at [address] [place] [address] Kaylin Willard MSW 09/25/2024 Telephone [facility] Interventional Radiology [address] [place] [phone] Thad De Leon Appointment 09/25/2024 Orders Only [facility] Liver Transplant at [address] [place] [address] Mary Butler, RN Pre-transplant evaluation for chronic liver disease (Primary Dx); Alcoholic cirrhosis of liver without ascites (CMS-HCC) 09/24/2024 Orders Only [facility] Gastroenterology at [facility] [address] [facility] [address] [place] [phone] Gerri Peterson MD Cirrhosis of liver with ascites, unspecified hepatic cirrhosis type (CMS-HCC) (Primary Dx) 09/24/2024 Orders Only [facility] Gastroenterology at [facility] [address] [facility] [address] [place] [phone] Gerri Peterson MD Cirrhosis of liver with ascites, unspecified hepatic cirrhosis type (CMS-HCC) (Primary Dx) 09/23/2024 Telephone [facility] Gastroenterology at [facility] [address] [facility] [address] [place] [phone] Gerri Peterson MD Orders (Order Clarification Request/) 09/22/2024 Telephone [facility] Gastroenterology at [facility] [address] [facility] [address] [place] [phone] Gerri Peterson MD Orders (Order Clarification Request ) 09/17/2024 Telephone [facility] Liver Transplant at [address] [place] [address] Kaylin Willard, DIGITAL SALES REPRESENTATIVE 09/17/2024 Abstract [facility] Gastroenterology at [facility] [address] [facility] [address] [place] [phone] Gerri Peterson MD 09/17/2024 Telephone [facility] Liver Transplant at [address] [place] [address] Kaylin Willard, DIGITAL SALES REPRESENTATIVE 09/16/2024 Telephone [facility] Gastroenterology at [facility] [address] [facility] [address] [place] [address] Gerri Peterson MD Medical Management (Plan of Care Inquiry/Question ) 09/10/2024 Telephone [facility] Liver Transplant at [facility] [address] [facility] [address] [place] [address] Kaylin Willard MSW 09/05/2024 Orders Only [facility] Gastroenterology at [facility] [address] [facility] [facility] [address] [place] [address] Chris Orosco MD Cirrhosis of liver with ascites, unspecified hepatic cirrhosis type (CMS-HCC) (Primary Dx) 09/05/2024 Travel 09/03/2024 4:56 AM EDT - 09/09/2024 6:25 PM EDT Hospital Encounter [facility] [address] [place] [phone] Ana Maria Ramey MD Zackary, Joseph, MD Morgenlander, Adam M, MD Liebler, Hillary, MD Stickles, Allison Michele, MD Alcoholic cirrhosis of liver with ascites (CMS-HCC) (Primary Dx); Abdominal pain, unspecified abdominal location; NADIYA (acute kidney injury) (CMS-HCC) [N17.9] Discharge Disposition: Home or Self Care WITHOUT Home Care Services 09/03/2024 Telephone [facility] Interventional Radiology [address] [place] [phone] Thad De Leon Appointment 09/02/2024 4:00 PM EDT [facility] [address] [facility] [address] [place] [phone] Doron Botello MD Alcoholic cirrhosis of liver without ascites (CMS-HCC); Cirrhosis of liver with ascites, unspecified hepatic cirrhosis type (CMS-HCC) 09/02/2024 2:40 PM EDT Office Visit [facility] Gastroenterology at [facility] Office [address] [facility] [address] [place] [phone] Gerri Peterson MD Cirrhosis of liver with ascites, unspecified hepatic cirrhosis type (CMS-HCC) (Primary Dx); Alcoholic cirrhosis of liver without ascites (CMS-HCC) 09/02/2024 Orders Only [facility] [address] [place], [place] [phone] Néo Giordano MD Hypokalemia (Primary Dx) 09/02/2024 Telephone [facility] [address] [place], [place] [phone] Unknown, Attending Provider After Hours Call 09/02/2024 Orders Only [facility] Liver Transplant at [address] [place] [phone] Mary Butler RN Pre-transplant evaluation for chronic liver disease (Primary Dx); Alcoholic cirrhosis of liver without ascites (CMS-HCC) 09/02/2024 Telephone [facility] Gastroenterology at [facility] 222 [facility] [address] [place] [address] Gerri Peterson MD Orders (Order Request (New) ) 09/02/2024 Telephone [facility] Gastroenterology at [facility] 222 [facility] [address] [place] [phone] Chris Orosco MD 08/20/2024 Telephone [facility] Liver Transplant at [address] [place] [phone] Kaylin Willard MSW 08/15/2024 Chart Note [facility] Kidney Transplant at [address] [place] [phone] Dean Robles [facility] [address] 08/12/2024 6:12 PM EDT - 08/19/2024 12:56 PM EDT Hospital Encounter [facility] [address] [place] [phone] MD [place], Zachary, MD Lenz, Peter, MD Ahmad, Yousef, MD Ayoub, Bassam Y, MD Jovani, Leeanna E, MD Chronic liver failure without hepatic coma (CMS-HCC) (Primary Dx); Decompensated cirrhosis (CMS-HCC); NADIYA (acute kidney injury) (CMS-HCC); Hypotension, unspecified hypotension type; Hepatorenal syndrome (CMS-HCC); Shock (CMS-HCC); Acute metabolic encephalopathy Discharge Disposition: Home WITH Home Health Care Services from Last 3 Months Social History Tobacco [...] the past 12 months has th e newMentor, gas, oil, or water tic threatened to shut off services in your [...] (218 lb) 11/11/2024 10:48 AM EDT Height 193 cm (6' 4 ) 10/26/2024 11:26 AM EDT Body Mass Index 26.54 10/26/2024 11:26 AM EDT Plan of Treatment Upcoming Encounters Date Type Department Care Team (Late st Contact Info) Description 12/05/2024 8:01 AM EDT Hospital Encounter [facility] ENDOSCOPY [address] [place] [address] Chris Orosco MD [address] [place] [phone] 12/05/2024 8:01 AM EDT - 12/05/2024 8:31 AM EDT [facility] ENDOSCOPY [address] [place] [phone] Chris Orosco MD [address] [place] [phone] EGD Scheduled Procedures Name Priority Associated Diagnoses Date/Ti me EGD Cirrhosis of liver with ascites, unspecified hepatic cirrhosis type ([facility]-HCC) 12/05/2024 8:01 AM EDT Health Maintenance Due Date Last Done Comments ASCVD Assessment 1983 Tobacco Cessation Readiness 1983 Immunization: Hepatitis A (1 of 2 - Risk 2-dose series) 2002 Immunization: Pneumococcal ( 1 of 2 - PCV) 2002 Immunization: Zoster (1 of 2) 2002 Immunization: Hepatitis B (2 of 3 - 19+ 3-dose series) 10/11/2010 09/13/2010 Immunization: COVID-19 ( season) 2024 03/17/2021, 07/25/2020, 06/27/2020 Immunization: Influenza (MyC adler) (#1) 2025 03/12/2024, 03/12/2023 Depression Screening 09/29/2025 09/29/2024, 09/03/19 25 Thyroid Function/TSH (MyChart) 10/07/2025 0 10/07/2024, 10/06/2024, 09/03/2024 Alcohol Misuse Screening 10/25/2025 025, 10/05/2024, 09/03/2024, Additional history exists Renal Function/GFR 11/11/2025 11/11/2024, 0 11/06/2024, 11/04/2024, Additional history exists Immunization: DTaP/Tdap/Td ( 3 - Td or Tdap) 06/03/2028 06/03/2018, 09/13/2010 HIV Screening Completed 10/25/2024, 10/07/2024 Hepatitis C Screening (MyChart) Completed 10/25/2024, 10/07/2024, 10/06/2024, Additional history exists Procedures Procedure Name Priority Date/Time Associated Diagnosis Comments MAGNESIUM Routine 11/11/2024 9:13 AM EDT Kidney transplant recipient PROTEIN / CREATININE RATIO, URINE Routine 11/11/2024 9:13 AM EDT Kidney transplant recipient URINALYSIS W/RFL TO MICROSCOPIC Routine 11/11/2024 9:13 AM EDT Kidney transplant recipient DIFFERENTIAL Routine 11/11/2024 9:13 AM EDT Liver replaced by transplant (CMS-HCC) Immunosuppressive management encounter following liver transplant (CMS-HCC) CBC Routine 11/11/2024 9:13 AM EDT Liver replaced by transplant (CMS-HCC) Immunosuppressive management encounter following liver transplant (CMS-HCC) RENAL FUNCTION PANEL W/EGFR Routine 11/11/2024 9:13 AM EDT Liver replaced by transplant (CMS-HCC) Immunosuppressive management encounter following liver transplant (CMS-HCC) HEPATIC FUNCTION PANEL Routine 9:13 AM EDT Liver replaced by transplant (CMS-HCC) Immunosuppressive management encounter following liver transplant (CMS-HCC) TACROLIMUS LEVEL Routine 11/11/2024 9:13 AM EDT Liver replaced by transplant (CMS-HCC) Immunosuppressive management encounter following liver transplant (CMS-HCC) POST KIDNEY TRANSPLANT URINE CULTURE Routine 11/11/2024 9:13 AM EDT Kidney transplant recipient TACROLIMUS LEVEL Routine 11/06/2024 8:36 AM EDT RENAL FUNCTION PANEL W/O EGFR Routine 11/06/2024 8:36 AM EDT CBC AND DIFFERENTIAL Routine 11/06/2024 8:36 AM EDT HEPATIC FUNCTION PANEL Routine 8:36 AM EDT MAGNESIUM Routine 11/04/2024 8:46 AM EDT Kidney [...] Routine 10/31/2024 10:19 AM EDT US DUPLEX [id number]-[id number]-[id number] COMPLETE Routine 10/31/2024 10:19 AM EDT ECG [...] 6:16 AM EDT PREPARE RBC, LEUKOREDUCED STAT 06/18/ 2025 6:15 AM EDT PREPARE RBC, LEUKOREDUCED Routine [...] STAT 10/28/2024 4:23 PM EDT US DUPLEX NEX-[id number]-[id number] COMPLETE STAT 10/28/2024 4:23 PM EDT TRANSFUSE [...] STAT 10/27/2024 9:51 AM EDT US DUPLEX DUX-GUWWZP-TLIFOOT COMPLETE STAT 10/27/2024 9:51 AM EDT US [...] 6:29 AM EDT PREPARE CRYOPRECIPITATE Routine 10/28/19 25 6:16 AM EDT PREPARE PLATELETS, LEUKOREDUCED Routine [...] Acute kidney injury superimposed on CKD (CMS-HCC) [place] RENAL ALTRNSPLJ IMPLTJ GRF W/CERAMICS TECHNICIAN NEPHRECTOMY 10/27/2024 2:32 AM EDT Acute kidney injury superimposed on CKD (CMS-HCC) 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 patel [...] PH Routine 10/25/2024 11:40 PM EDT SWAN EMIYL Routine 10/25/2024 11:13 PM EDT URINE CULTURE [...] LIPID PANEL Routine 10/07/2024 6:37 PM EDT [id number] (AAT) QUANTITATION & MUTATION Routine 10/07/2024 6:37 [...] Routine 10/07/2024 3:48 PM EDT US DUPLEX FHR-DVONGB-NQEVYVM COMPLETE Routine 10/07/2024 3:48 PM EDT CARISA [...] 10/06/2024 4:01 AM EDT UPPER RESPIRATORY VIRAL/BACTERIAL PANEL-AUTOMOTIVE REPAIR TECHNICIAN ONLY Routine 10/06/2024 3:12 AM EDT [...] 5:22 AM EDT HEPATIC FUNCTION PANEL Routine 04/24/202 5 5:22 AM EDT BASIC METABOLIC PANEL Routine [...] STAT 09/03/2024 10:30 AM EDT US DUPLEX NXO-[id number]-[id number] COMPLETE STAT 09/03/2024 10:30 AM EDT URINALYSIS, [...] PERITONEAL FLUID Routine 08/14/2024 12:00 AM EDT from Last 3 Months Results * (ABNORMAL) Hepatic Function Panel (11/11/2024 9:13 AM EDT) Only the most recent of45 resultswithin the time period is included. Total Bilirubin 1.0 0.0 - 1.5 mg/dL 11/11/2024 10:51 AM EDT [facility] Bilirubin, Direct 0.39 0.00 - 0.40 mg/dL 11/11/2024 10:51 AM EDT [facility] AST 15 13 - 39 U/L 11/11/2024 10:51 AM EDT [facility] ALT 26 7 - 52 U/L 11/11/2024 10:51 AM EDT [facility] Alkaline Phosphatase 125 36 - 125 U/L 11/11/2024 10:51 AM EDT [facility] Total Protein 5.9(L) 6.4 - 8.9 g/dL 11/11/2024 10:51 AM EDT [facility] Albumin 3.8 3.5 - 5.7 g/dL 11/11/2024 10:51 AM EDT [facility] Bilirubin, Indirect 0.61 0.00 - 1.10 mg/dL 11/11/2024 10:51 AM EDT [facility] Plasma 11/11/2024 9:13 AM EDT 11/11/2024 10:19 AM EDT Narrative [facility] - 11/11/2024 10:51 AM EDT Standing orders to be drawn: Every Sunday and before 9am and prior to patient taking morning medications. Liver Transplant Fax results to [phone] Call Critical results to [phone] DO NOT REPLACE RENAL PANEL or HEPATIC FUNCTION PANEL w/ CMP, BMP or HEPATIC PROFILE Harvey Domínguez III, MD LAB BLOOD ORDERABLE S Final Result [facility] [address] [place] [address], [facility] * (ABNORMAL) Renal Function Panel w/EGFR (11/11/2024 9:13 AM EDT) Only the most recent of58 resultswithin the time period is included. Sodium 141 133 - 146 mmol/L 11/11/2024 10:51 AM EDT [facility] Potassium 4.6 3.5 - 5.3 mmol/L 11/11/2024 10:51 AM EDT [facility] Chloride 108 98 - 110 mmol/L 11/11/2024 10:51 AM EDT [facility] CO2 24 21 - 33 mmol/L 11/11/2024 10:51 AM EDT [facility] Anion Gap 9 3 - 16 mmol/L 11/11/2024 10:51 AM EDT [facility] BUN 27(H) 7 - 25 mg/dL 11/11/2024 10:51 AM EDT [facility] Creatinine 1.14 0.60 - 1.30 mg/dL 11/11/2024 10:51 AM EDT [facility] Glucose 97 70 - 100 mg/dL 11/11/2024 10:51 AM EDT [facility] Calcium 8.6 8.6 - 10.3 mg/dL 11/11/2024 10:51 AM EDT [facility] Phosphorus 4.4 2.1 - 4.7 mg/dL 11/11/2024 10:51 AM EDT [facility] Albumin 3.8 3.5 - 5.7 g/dL 11/11/2024 10:51 AM EDT [facility] Osmolality, Calculated 297 278 - 305 mOsm/kg 11/11/2024 10:51 AM EDT [facility] EGFR 83 11/11/2024 10:51 AM EDT [facility] Comment:As [...] AM EDT 11/11/2024 10:19 AM EDT Narrative [facility] - 11/11/2024 10:51 AM EDT Standing orders to be drawn: Every Sunday and before 9am and prior to patient taking morning medications. Liver Transplant Fax results to [phone] Call Critical results to [phone] DO NOT REPLACE RENAL PANEL or HEPATIC FUNCTION PANEL w/ CMP, BMP or HEPATIC PROFILE Harvey Domínguez III, MD LAB BLOOD ORDERABLE S Final Result Performing Organization Address City/State/[facility] Co de Phone Number [facility] [address] [id number] * Tacrolimus level (11/11/2024 9:13 AM EDT) Only the most recent of9 resultswithin the time period is included. Tacrolimus (LC-MS) 10.4 3.0 - 15.0 ng/mL 11/11/2024 1:22 PM EDT [facility] Comment:Performed via liquid chromatography tandem mass spectrometry. Detection limit: 1 ng/mL. Individual target concentrations may vary due to target organ and time after transplant. This test has been developed and its performance characteristics determined by [facility] which is certified under the [...] AM EDT 11/11/2024 10:19 AM EDT Narrative [facility] - 11/11/2024 1:22 PM EDT Standing orders to be drawn: Every Sunday and before 9am and prior to patient taking morning medications. Liver Transplant Fax results to [phone] Call Critical results to [phone] Harvey Domínguez III, MD LAB BLOOD ORDERABLE S Final Result Performing Organization Address [facility] Co de Phone Number [facility] [address] [facility]. [address] * Protein / creatinine ratio, urine (11/11/2024 9:13 AM EDT) Only the most recent of2 resultswithin the time period is included. Creatinine, Urine 71.40 mg/dL 11/11/2024 10:38 AM EDT [facility] Comment:Reference range not established for this test. Total Protein, Ur 28 mg/dL 11/11/2024 10:38 AM EDT [facility] Comment:Reference range not established for this test. Prot/Creat Ratio, Ur 0.39 ratio 11/11/2024 10:38 AM EDT [facility] Urine 11/11/2024 9:13 AM EDT 11/11/2024 10:12 AM EDT Caron Santos CNP URINE ORDERABLES Final Re sult Performing Organization Address City/[facility]/ZIP Co de Phone Number [facility] [address] [facility]. [address] * (ABNORMAL) Differential (11/11/2024 9:13 AM EDT) Only the most recent of6 resultswithin the time period is included. Neutrophils Relative 69.3 40.0 - 80.0 % 11/11/2024 10:31 AM EDT [facility] Lymphocytes Relative 17.6 15.0 - 45.0 % 11/11/2024 10:31 AM EDT [facility] Monocytes Relative 8.5 0.0 - 12.0 % 11/11/2024 10:31 AM EDT [facility] Eosinophils Relative 2.0 0.0 - 8.0 % 11/11/2024 10:31 AM EDT [facility] Basophils Relative 2.6(H) 0.0 - 1.0 % 11/11/2024 10:31 AM EDT [facility] nRBC 0 0 - 0 /100 WBC 11/11/2024 10:31 AM EDT [facility] Neutrophils Absolute 4,920 1,520 - 8,640 /uL 11/11/2024 10:31 AM EDT [facility] Lymphocytes Absolute 1,250 570 - 4,860 /uL 11/11/2024 10:31 AM EDT [facility] Monocytes Absolute 604 0 - 1,296 /uL 11/11/2024 10:31 AM EDT [facility] Eosinophils Absolute 142 0 - 864 /uL 11/11/2024 10:31 AM EDT [facility] Basophils Absolute 185(H) 0 - 108 /uL 11/11/2024 10:31 AM EDT [facility] Whole Blood 11/11/2024 9:13 AM EDT 11/11/2024 10:19 AM EDT Narrative [facility] - 11/11/2024 10:31 AM EDT Standing orders to be drawn: Every Sunday and before 9am and prior to patient taking morning medications. Liver Transplant Fax results to [phone] Call Critical results to [phone] us Harvey Domínguez III, MD LAB BLOOD ORDERABLE S Final Result [facility] [address] [place] [address], [place] * (ABNORMAL) Urinalysis w/Rfl to Microscopic (11/11/2024 9:13 AM EDT) Only the most recent of5 resultswithin the time period is included. Color, UA Straw Yellow,Straw 11/11/2024 10:36 AM EDT [facility] Clarity, UA Clear Clear 11/11/2024 10:36 AM EDT [facility] Specific [place], UA 1.015 1.005 - 1.035 11/11/2024 10:36 AM EDT [facility] pH, UA 6.0 5.0 - 8.0 11/11/2024 10:36 AM EDT [facility] Protein, UA Negative Negative mg/dL 11/11/2024 10:36 AM EDT [facility] Glucose, UA Negative Negative mg/dL 11/11/2024 10:36 AM EDT [facility] Ketones, UA Negative Negative mg/dL 11/11/2024 10:36 AM EDT [facility] Bilirubin, UA Negative Negative 11/11/2024 10:36 AM EDT [facility] Blood, UA Small(A) Negative 11/11/2024 10:36 AM EDT [facility] Nitrite, UA Negative Negative 11/11/2024 10:36 AM EDT [facility] Urobilinogen, UA <2.0 0.2 - 1.9 mg/dL 11/11/2024 10:36 AM EDT [facility] Leukocyte Esterase, UA Negative Negative 11/11/2024 10:36 AM EDT [facility] RBC, UA 13(H) 0 - 3 /HPF 11/11/2024 10:36 AM EDT [facility] WBC, UA 4 0 - 5 /HPF 11/11/2024 10:36 AM EDT [facility] Urine 11/11/2024 9:13 AM EDT 11/11/2024 10:10 AM EDT Caron Santos GROUND OPERATIONS SUPERINTENDENT URINE ORDERABLES Final Re sult [facility] [address] [place] [address], [facility] * (ABNORMAL) CBC (11/11/2024 9:13 AM EDT) Only the most recent of54 resultswithin the time period is included. WBC 7.1 3.8 - 10.8 10E3/uL 11/11/2024 10:31 AM EDT [facility] RBC 3.42(L) 4.20 - 5.80 10E6/uL 11/11/2024 10:31 AM EDT [facility] Hemoglobin 10.6(L) 13.2 - 17.1 g/dL 11/11/2024 10:31 AM EDT [facility] Hematocrit 31.3(L) 38.5 - 50.0 % 11/11/2024 10:31 AM EDT [facility] MCV 91.5 80.0 - 100.0 fL 11/11/2024 10:31 AM EDT [facility] MCH 31.0 27.0 - 33.0 pg 11/11/2024 10:31 AM EDT [facility] MCHC 33.8 32.0 - 36.0 g/dL 11/11/2024 10:31 AM EDT [facility] RDW 20.5(H) 11.0 - 15.0 % 11/11/2024 10:31 AM EDT [facility] Platelets 308 140 - 400 10E3/uL 11/11/2024 10:31 AM EDT [facility] MPV 6.1(L) 7.5 - 11.5 fL 11/11/2024 10:31 AM EDT [facility] Whole Blood 11/11/2024 9:13 AM EDT 11/11/2024 10:19 AM EDT Narrative [facility] - 11/11/2024 10:31 AM EDT Standing orders to be drawn: Every Sunday and before 9am and prior to patient taking morning medications. Liver Transplant Fax results to [phone] Call Critical results to [phone] us Harvey Domínguez III, MD LAB BLOOD ORDERABLE S Final Result [facility] [address] [place] [address], [place] * (ABNORMAL) Magnesium (11/11/2024 9:13 AM EDT) Only the most recent of59 resultswithin the time period is included. Magnesium 1.2(L) 1.5 - 2.5 mg/dL 11/11/2024 10:51 AM EDT [facility] Plasma 11/11/2024 9:13 AM EDT 11/11/2024 10:19 AM EDT Caron Santos CNP LAB BLOOD ORDERABLES Denisse l Result [facility] [address] [id number], [facility] * (ABNORMAL) CBC and differential (11/06/2024 8:36 AM EDT) Only the most recent of2 resultswithin the time period is included. Hemoglobin 9.3(A) 13.5 - 17.5 g/dL Hematocrit 29.6(A) 41 - 53 % RDW 18.7(A) 11.5 - 14.5 % Lymphocytes Absolute 1.0 / L Monocytes Absolute 0.5 / L Eosinophils Absolute 0.1 / L Basophils Absolute 0.1 / L Neutrophils Relative 74.6 46 - 78 % Lymphocytes Relative 13.3(A) 18 - 52 % Monocytes Relative 7.2 3 - 10 % Eosinophils Relative 1.6 0 - 6 % Basophils Relative 0.8 0 - 3 % Neutrophils Absolute 5.6 / L MCH 29.2 26.0 - 34.0 pg MCHC 31.4 30 - 37 g/dL MCV 92.8 82.0 - 108.0 fL Platelets 199 K/ L RBC 3.19(A) 4.50 - 5.90 10^6/ L WBC 7.5 10^3/mL Blood Narrative Resulting Agency Comment [facility] Historical Provider MD LAB BLOOD ORDERABLES Denisse l Result * (ABNORMAL) Renal Function Panel w/o EGFR (11/06/2024 8:36 AM EDT) Only the most recent of4 resultswithin the time period is included. Glucose 108 mg/dL BUN 35(A) 4 - 21 mg/dL CO2 22 13 - 22 mmol/L Creatinine 1.10 0.6 - 1.3 mg/dL Potassium 4.7 3.4 - 5.3 mmol/L Sodium 136(A) 137 - 147 mmol/L Chloride 105 99 - 108 mmol/L Phosphorus 3.4 2.5 - 4.9 mg/dL Calcium 8.1(A) 8.7 - 10.7 mg/dL EGFR 89 mg/dL Albumin 3.5 3.5 - 5.0 g/dL Blood Narrative Resulting Agency Comment [facility] Historical Provider MD LAB BLOOD ORDERABLES Denisse l Result * (ABNORMAL) Post Kidney Transplant Urine Culture (11/04/2024 8:46 AM EDT) Only the most recent of2 resultswithin the time period is included. Culture Result Enterococcus faecium, Vancomycin Resistant(A) [facility] Comment: 1,000- <10,000 cfu/mL Identified by [...] resistant Vancomycin SARMAD >=32: Resistant Comment:See Results Caron Santos CNP MICROBIOLOGY - GENERAL OR DERABLES Final Result [facility] [address] [place] [address], [facility] * EKG - scan (11/03/2024 9:07 AM [...] POINT OF CARE TEST ORDERABLES Final Result [facility] [address] [place] [address], [facility] * X-ray Portable Abdomen AP view [...] Adrenal gland: No focal nodule seen. Kidneys: [place] kidneys noted with nonobstructing calcifications on the right. Findings of postsurgical changes in the left [place] kidney. Mild right hydronephrosis without an obstructive [...] Adrenal gland: No focal nodule seen. Kidneys: [place] kidneys noted with nonobstructing calcifications on theright. Findings of postsurgical changes in the left [place] kidney. Mildright hydronephrosis without an obstructive course [...] QT: 400 ms QTc: 456 ms P Steward: 49 degrees R Steward: 3 degrees T Steward: 14 degrees Diagnosis Line: NORMAL SINUS RHYTHM ^ NORMAL ECG ^ ^ Confirmed by MD JEANETTE, TORI ([id number]) on 11/02/2024 6:56:52 AM Priti Alex CNP ECG ORDERABLES Final Result [facility] * US Duplex Qvs-Yby-Jhijujz Comp (10/31/2024 10:19 AM EDT) Only the most recent of5 [...] EXAM: US ABDOMEN LIMITED EXAM: US DUPLEX [id number]-[id number]-[id number] COMPLETE INDICATION: Post-op liver transplant COMPARISON: None [...] visualized secondary to poor acoustic windows. The [place] right kidney measures 11.6 cm in length. [...] EXAM: US ABDOMEN LIMITED EXAM: US DUPLEX [id number] COMPLETE INDICATION: Post-op liver transplant COMPARISON: None [...] well visualized secondary to poor acousticwindows. The [place] right kidney measures 11.6 cm in length. [...] 10/31/2024 10:35 AM EDT us Beata Horner [facility] IM US ORDERABLES Final R esult [...] EXAM: US ABDOMEN LIMITED EXAM: US DUPLEX [id number] COMPLETE INDICATION: Post-op liver transplant COMPARISON: None [...] visualized secondary to poor acoustic windows. The [place] lions right kidney measures 11.6 cm in length. [...] EXAM: US ABDOMEN LIMITED EXAM: US DUPLEX [id number] COMPLETE INDICATION: Post-op liver transplant COMPARISON: None [...] well visualized secondary to poor acousticwindows. The [place] lions right kidney measures 11.6 cm in length. [...] 10/31/2024 10:35 AM EDT us Beata Horner GROUND OPERATIONS SUPERINTENDENT IMG US ORDERABLES Final R esult * [...] at 10/31/2024 10:29 AM EDT [address] Hor[address] [facility] ORDERABLES Final R esult * Prepare RBC, leukoreduced, 1 Units (10/29/2024 6:16 AM EDT) Only the most recent of7 resultswithin the time period is included. Pathologist [facility] Product Code W6031H22 [facility] Unit Number [id number] [facility] Dispense Status Presumed Transfused_PT [facility] Blood Expiration Date [id number] [facility] Coding System [id number] [facility] Blood Bank Product Shay Guzmán MD BLOOD BANK PRODUCT O RDERABLES Final Result [facility] * (ABNORMAL) TEG-Bypass/ECMO/Liver HN (Factor function, Platelet/Fibrin Clot Strength w/Clot Breakdown, Heparinase In All Channels) (10/29/2024 5:07 AM EDT) Only the most recent of13 resultswithin the time period is included. Citrated Kaolin Reaction Time (TEGECMOLIVER) 8.9 4.6 - 9.1 minutes 10/29/2024 7:04 AM EDT [facility] Citrated Kaolin W/Heparinase Reaction Time (TEGECMOLIVER) 7.4 4.3 - 8.3 minutes 10/29/2024 7:04 AM EDT [facility] Citrated Kaolin Maximum Amplitude (TEGECMOLIVER) 52.9 52.0 - 69.0 mm 10/29/2024 7:04 AM EDT [facility] Citrated Functional Fibrinogen W/Heparinase Maximum Amplitude(TEGEC MOLIVER) 20.7 15.0 - 34.0 mm 10/29/2024 7:04 AM EDT [facility] Citrated Rapid Teg W/Heparinase Maximum Amplitude (TEGECMOLIVER) 49.7(L) 53.0 - 69.0 mm 10/29/2024 7:04 AM EDT [facility] Citrated Kaolin w/Heparinase Percent Lysis (TEGECMOLIVER) 0.0 0.0 - 3.2 % 10/29/2024 7:04 AM EDT [facility] Whole Blood (Citrate) 10/29/2024 5:07 AM EDT 10/29/2024 5:10 AM EDT Kemar Sahni MD LAB BLOOD ORDERABLES Final Result Performing Organization Address [facility]/ZIP Co de Phone Number [facility] [address] * Transfuse RBC Transfusion Rate: Per dept routine (10/28/2024 5:23 PM EDT) Only the most recent of17 resultswithin the time period is included. us Shay Guzmán MD NURSING TREATMENT OR DERABLES - BLOOD ADMIN Final Result EXTERNAL * (ABNORMAL) Lactic Acid, STAT (10/28/2024 11:09 AM EDT) Only the most recent of12 resultswithin the time period is included. Lactate 0.3(L) 0.5 - 2.2 mmol/L 10/28/2024 11:37 AM EDT [facility] Plasma 10/28/2024 11:0 9 AM EDT 10/28/2024 11:15 AM EDT Carlos Marks MD LAB BLOOD ORDERABLES Final Result Performing Organization Address City/[facility] Co de Phone Number [facility] [address] * Protime-INR, STAT (10/28/2024 11:09 AM EDT) Only the most recent of38 resultswithin the time period is included. Protime 14.3 12.1 - 15.1 seconds 10/28/2024 11:29 AM EDT [facility] INR 1.1 0.9 - 1.1 10/28/2024 11:29 AM EDT [facility] Comment: RECOMMENDED THERAPEUTIC RANGES USING INR : Stable oral anticoagulant therapy: 2.0 - 3.0 Mechanical prosthetic heart valve: 2.5 - 3.5 Recurrent acute myocardial infarction: 2.5 - 3.5 Plasma 10/28/2024 11:0 9 AM EDT 10/28/2024 11:16 AM EDT Carlos Marks MD LAB BLOOD ORDERABLES Final Result Performing Organization Address City/[facility] Co de Phone Number [facility] [address] * Prepare Platelets, leukoreduced (10/28/2024 6:15 AM EDT) Only the most recent of6 resultswithin the time period is included. Product Code Z2284P16 [facility] Unit Number [id number] [facility] Dispense Status Presumed Transfused_PT [facility]LL Blood Expiration Date HCLL Coding System [id number] HCLL Product Code L9994T46 [facility] Unit Number [id number] [facility] Dispense Status Presumed Transfused_PT [facility]LL Blood Expiration Date HCLL Coding System SFRQ730 HCLL Attending Provider Unknown BLOOD BANK PRODUCT OR DERABLES Final Result Performing Organization Address [facility] de Phone Number HC[facility] * Prepare Fresh Frozen Plasma (10/28/2024 6:15 AM EDT) Only the most recent of5 resultswithin the time period is included. Product Code Z6072V55 [facility] Unit Number [id number] [facility] Dispense Status Released from Crossmatch_RE HCLL Blood Expiration Date HCLL Coding System FSUV712 HCLL Product Code G9889E02 [facility] Unit Number [id number] [facility]LL Dispense Status Presumed Transfused_PT HCLL Blood Expiration Date HCLL Coding System VOJR041 HCLL Product Code L1782K01 [facility]LL Unit Number [id number] HCLL Dispense Status Released from Crossmatch_RE HCLL Blood Expiration Date HCLL Coding System FCHJ625 HCLL Product Code H1409X54 HCLL Unit Number [id number] HCLL Dispense Status Presumed Transfused_PT HCLL Blood Expiration Date HCLL Coding System [id number] HCLL Product Code Y4070G31 HCLL Unit Number [id number] HCLL Dispense Status Released from Crossmatch_RE HCLL Blood Expiration Date [id number] HCLL Coding System CSVZ732 HCLL us Attending Provider Unknown BLOOD BANK PRODUCT OR DERABLES Final Result Performing Organization Address [facility] de Phone Number HC[facility] * Prepare Cryoprecipitate, 1 Units (10/28/2024 6:15 AM EDT) Only the most recent of4 resultswithin the time period is included. Product Code D8210T80 [facility] Unit Number [id number] [facility]LL Dispense Status Presumed Transfused_PT HCLL Blood Expiration Date HCLL Coding System UPXW114 HCLL Product Code Z8947G98 [facility]LL Unit Number [id number] HCLL Dispense Status Presumed Transfused_PT HCLL Blood Expiration Date HCLL Coding System JDMF098 HCLL Blood Bank Product John Pina MD BLOOD BANK PRODUCT ORDERABLES F inal Result [facility] * (ABNORMAL) Blood Gas, Arterial, STAT (10/27/2024 2:40 PM EDT) Only the most recent of6 resultswithin the time period is included. O2 Sat, Arterial 98 10/27/2024 2:46 PM EDT [facility] FIO2 RA 10/27/2024 2:46 PM EDT [facility] pH, Arterial 7.37 7.35 - 7.45 10/27/2024 2:46 PM EDT [facility] pCO2, Arterial 35 35 - 45 mm Hg 10/27/2024 2:46 PM EDT [facility] pO2, Arterial 92 80 - 100 mm Hg 10/27/2024 2:46 PM EDT [facility] HCO3, Arterial 21(L) 22 - 26 mmol/L 10/27/2024 2:46 PM EDT [facility] CO2 Content,Arteri al 21(L) 23 - 27 mmol/L 10/27/2024 2:46 PM EDT [facility] Base Excess, Arterial -4.6(L) -2.0 - 3.0 mmol/L 10/27/2024 2:46 PM EDT [facility] %HBO2, Arterial 95.4 95.0 - 98.0 % 10/27/2024 2:46 PM EDT [facility] Carboxyhemoglo bin, Arterial 1.6 % 10/27/2024 2:46 PM EDT [facility] Comment: CARBOXYHEMOGLOBIN (CO) REFERENCE RANGES: Non-Smokers: <2 % Smokers: <8 % TOXIC: >20 % Methemoglobin, Arterial 1.0 0.0 - 1.5 % 10/27/2024 2:46 PM EDT [facility] Reduced hemoglobin, Arterial 2.1 0.0 - 5.0 % 10/27/2024 2:46 PM EDT [facility] Blood, Arterial 10/27/2024 2 :40 PM EDT 10/27/2024 2:44 PM EDT Narrative [facility] - 10/27/2024 2:46 PM EDT Post extubation us John Coulter MD LAB BLOOD ORDERABLES Final R esult [facility] [address] [place] [address], [facility] * CARISA Rhythm Strip - Scan (10/27/2024 9:25 AM EDT) Only the most recent of11 resultswithin the time period is included. us Scanning Uchhim SCAN DOCS - NO RESULTS Final Res ult * X-ray Portable Chest (10/27/2024 8:58 AM EDT) Only the most recent of6 [...] Positive( A) Negative 10/27/2024 11:30 AM EDT [facility] Comment:Presence of detectab le VCA IgG antibodies. 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 EBV IGG NUM 314.00(H) 0.00 - 17.99 U/mL 10/27/2024 11:30 AM EDT [facility] Serum 10/27/2024 8:00 AM EDT 10/27/2024 8:20 AM EDT Kemar Sahni MD LAB BLOOD ORDERABLES Final Result [facility] [address] [place] [address], [facility] * Hemoglobin A1c (10/27/2024 8:00 AM EDT) Only the most recent of2 resultswithin the time period is included. Hemoglobin A1C 5.0 4.0 - 5.6 % 10/27/2024 11:12 AM EDT [facility] Comment: Hemoglobin A1c Interpretation [...] ORDERABLES Final Result Performing Organization Address City/State/[facility] Co de Phone Number [facility] [address] * X-ray Abdomen AP view (10/27/2024 [...] O2Sat (ABGP) 100 10/27/2024 6:17 AM EDT [facility] pH (ABGP) 7.30(L) 7.35 - 7.45 10/27/2024 6:17 AM EDT [facility] PCO2 (ABGP) 41 35 - 45 mm Hg 10/27/2024 6:17 AM EDT [facility] PO2 (ABGP) 192(H) 80 - 100 mm Hg 10/27/2024 6:17 AM [facility] HCO3 (ABGP) 21(L) 22 - 26 mmol/L 10/27/2024 6:17 AM EDT [facility] CO2 Content (ABGP) 22(L) 23 - 27 mmol/L 10/27/2024 6:17 AM T [facility] Base Excess (ABGP) -5.7(L) -2.0 - 3.0 mmol/L 10/27/2024 6:17 AM [facility] Sodium (ABGP) 138 136 - 146 mEq/L 10/27/2024 6:17 AM [facility] Potassium (ABGP) 3.3(L) 3.5 - 5.0 mEq/L 10/27/2024 6:17 AM [facility] Comment:In the event of in-v itro hemolysis, potassium results may be falsely elevated. Always interpret lab results in conjunction with clinical findings. If hemolysis is suspected, a serum sample may be collected for repeat assessment of potassium. Calcium, Free (ABGP) 5.28 4.50 - 5.30 mg/dL 10/27/2024 6:17 AM [facility] Glucose (ABGP) 112(H) 70 - 100 mg/dL 10/27/2024 6:17 AM [facility] Comment:There is interferenc e with whole blood glucose results on this method when Hematocrit is <25% or >60%. HCT (ABGP) 20.0(L) 40.0 - 52.0 % 10/27/2024 6:17 AM [facility] HGB (ABGP) 6.5(L) 14.0 - 18.0 g/dL 10/27/2024 6:17 AM [facility] %HBO2 (ABGP) 96.8 95.0 - 98.0 % 10/27/2024 6:17 AM [facility] Carboxyhgb (ABGP) 2.1 % 025 6:17 AM [facility] Comment: CARBOXYHEMOGLOBIN (CO) REFERENCE RANGES: Non-Smokers: <2 % Smokers: <8 % TOXIC: >20 % Methemoglobin (ABGP) 1.0 0.0 - 1.5 % 10/27/2024 6:17 AM EDT [facility] Reduced Hemoglobin (ABGP) 0.2 0.0 - 5.0 % 10/27/2024 6:17 AM EDT [facility] Lactic Acid (ABGP) 0.4(L) 0.5 - 1.6 mmol/L 10/27/2024 6:17 AM EDT [facility] Blood, Arterial 10/27/2024 6 :09 AM EDT 10/27/2024 6:14 AM EDT Ben Blake MD LAB BLOOD ORDERABLES Final Re sult [facility] [address] [place] [address], [facility] * Transfuse Fresh Frozen Plasma (10/27/2024 [...] MD LAB BLOOD ORDERABLES Final Resul t [facility] [address] [facility] [place] [address] * Surgical Pathology Exam (10/27/2024 2:38 AM EDT) Only the most recent of2 resultswithin the time period is included. Tissue LEFT KIDNEY STRUCTURE / Unknown 10/27/2024 2:38 AM EDT Narrative [facility] - 10/27/2024 12:00 AM EDT CASE: [id number] PATIENT: BLAIR ANDERSON Clinical History: Transplant kidney with bile duct reconstruction Pre-Operative Diagnosis: Acute kidney injury superimposed on CKD Post-Operative Diagnosis: None Given Specimen(s) Submitted: A. baseline renal biopsy ; B. right lobe liver biopsy; C. left lobe liver biopsy CPT Code(s): 46760 X 1; 67096 X 2; 22427 X 4 Additional Information: FINAL DIAGNOSIS: A. [...] parenchyma, which is entirely submitted in cassette [facility] A[facility]. (NAA Mckeon/rr) B. Received in formalin, labeled with the patient's name Blair Anderson and right lobe liver biopsy are two green-brown tissue cores measuring 1.8 and 2.0 cm in length, each with a diameter of 0.1 cm, which are entirely submitted between blue biopsy sponges in cassette [email or web address] B1-B2. (NAA Mckeon/ns) C. Received in formalin, labeled with the patient's name Blair Anderson and left lobe liver biopsy are two green-georges tissue cores measuring 1.2 and 1.4 cm in length, each with a diameter of 0.1 cm, which are entirely submitted between blue biopsy sponges in cassette [facility] C1-C2. (NAA Mckeon/nereida) Microscopic Description: I, the attending pathologist, have personally reviewed all prosector/resident work and pathology slides to determine final diagnosis. Control Materials Reacted Appropriately. Final Diagnosis performed by CLARE FALL MD Pathologist Electronically signed 10/31/2024 01:07:09 PM The Pathologist signing this report is located at [facility], [address] [place] [address], [id number], , CLIA ID: [id number] ADDENDUM: A. Kidney, allograft, baseline, wedge biopsy: [...] Pathologist signing this report is located at [facility], [address] [place] [address], [place], [place], [id number], , CLIA ID: [id number] Kemar Sahni MD PATHOLOGY/CYTOLOGY ORDERABL ES Edited Result - Final [facility] * Routine Culture plus Stain (10/27/2024 2:15 AM EDT) Only the most recent of2 resultswithin the time period is included. Gram Stain Result No Polymorphonuclear Leukocytes Seen [facility] Gram Stain Result No Organisms Seen; [facility] Culture Result No Growth After 3 Days [facility] Fluid SPECIMEN FROM KIDNEY / Unknown 10/27/2024 2:15 AM EDT 10/27/2024 4:24 AM EDT Narrative [facility] - 10/30/2024 9:26 AM EDT 1) perfusate Harvey Domínguez III, MD MICROBIOLOGY - GENE RAL ORDERABLES Final Result Performing Organization Address City/[facility]/ZIP Co de Phone Number [facility] [address] [place] [address]. [address] * Anaerobic culture (10/27/2024 2:15 AM EDT) Only the most recent of2 resultswithin the time period is included. Culture Result No Anaerobes Isolated in 5 Days [facility] Fluid SPECIMEN FROM KIDNEY / Unknown 10/27/2024 2:15 AM EDT 10/27/2024 4:24 AM EDT Narrative [facility] - 10/31/2024 11:43 AM EDT 1) perfusate Harvey Domínguez III, MD MICROBIOLOGY - GENE RAL ORDERABLES Final Result Performing Organization Address City/[facility] Co de Phone Number [address] * (ABNORMAL) TEG-Standard Global Hemostasis (Rapid TEG with Heparin Effect, Contains a Baseline TEG) (10/27/2024 1:51 AM EDT) Only the most recent of2 resultswithin the time period is included. Citrated Kaolin Reaction Time (TEGHEPARINASE) 10.6(H) 4.6 - 9.1 minutes 10/27/2024 2:44 AM EDT [facility] Citrated Rapid Teg Maximum Amplitude (TEGHEPARINASE) 42.3(L) 52.0 - 70.0 mm 10/27/2024 2:44 AM EDT [facility] Citrated Functional Fibrinogen Maximum Amplitude (TEGHEPARINASE) 15.0 15.0 - 32.0 mm 10/27/2024 2:44 AM EDT [facility] Citrated Kaolin W/Heparinase Reaction Time (TEGHEPARINASE) 10.5(H) 4.3 - 8.3 minutes 10/27/2024 2:44 AM EDT [facility] Citrated Kaolin K-Time (TEGHEPARINASE) 2.9(A) 0.8 - 2.1 minutes 10/27/2024 2:44 AM EDT [facility] Citrated Kaolin Angle (TEGHEPARINASE) 60.4(A) 63.0 - 78.0 degrees 10/27/2024 2:44 AM EDT [facility] Citrated Kaolin Maximum Amplitude (TEGHEPARINASE) 42.9(L) 52.0 - 69.0 mm 10/27/2024 2:44 AM EDT [facility] Citrated Functional Fibrinogen- Fibrinogen Level (TEGHEPARINASE) 273.7(L) 278.0 - 581.0 mg/dL 10/27/2024 2:44 AM EDT [facility] Whole Blood (Citrate) 10/27/2024 1:51 AM EDT 10/27/2024 2:03 AM EDT John Pina MD LAB BLOOD ORDERABLES Final Resu lt [facility] [address] [id number] * Calcium Free, Serum (10/27/2024 12:13 AM EDT) Only the most recent of3 resultswithin the time period is included. Free Calcium, Ser 5.20 4.40 - 5.40 mg/dL 10/27/2024 12:37 AM EDT [facility] Comment:Free calcium levels vary inversely with pH by approximately 5% for each 0.1 unit of pH change. Assay results have been normalized to pH = 7.40. Serum 10/27/2024 12:1 3 AM EDT 10/27/2024 12:29 AM EDT Narrative [facility] - 10/27/2024 12:37 AM EDT This test has been developed and its performance characteristics determined by [facility] which is certified under the [...] ORDERABLES Final Resu lt [facility] [address] * Repeat Crossmatch (Recipient Sample) (10/26/2024 4:42 PM EDT) Repeat Cx - Recipient The request and specimen(s) for this test have been received and transported to the [facility] [place] at [address] [place] [address]. The [facility] will report results directly to the client. 10/26/2024 4:49 PM EDT [facility] Whole Blood 10/26/2024 4:42 PM EDT 10/26/2024 4:49 PM EDT Narrative [facility] - 10/26/2024 4:49 PM EDT To be sent to [facility] for Donor UNOS#[id number] cross match with Blair Anderson Sveta Mojica MD LAB BLOOD ORDERABLES Final Resu lt Performing Organization Address [facility]/ZIP Co de Phone Number [facility] [address] * (ABNORMAL) Fibrinogen (10/26/2024 6:10 AM EDT) Only the most recent of2 resultswithin the time period is included. Fibrinogen 160(L) 218 - 406 mg/dL 10/26/2024 6:41 AM EDT [facility] Plasma 10/26/2024 6:10 AM EDT 10/26/2024 6:26 AM EDT Sveta Mojica MD LAB BLOOD ORDERABLES Final Resu lt Performing Organization Address City/[facility]/ZIP Co de Phone Number [facility] [address] * (ABNORMAL) POC INR (10/26/2024 5:16 AM EDT) Only the most recent of6 resultswithin the time period is included. Prothrombin Time INR, POC 2.4(H) 0.8 - 1.4 10/27/2024 6:51 AM EDT [facility] Comment: Test results may vary [...] TEST ORDERABLES Final Result Performing Organization Address [facility] Co de Phone Number [address] * POC Lactate (10/26/2024 5:14 AM EDT) Only the most recent of6 resultswithin the time period is included. Pathologist [facility] POC Lactate 1.76 0.50 - 2.20 mmol/L 10/26/2024 5:31 AM EDT [facility] Blood, Arterial 10/26/2024 5 :14 AM EDT 10/26/2024 5:31 AM EDT us Harvey Domínguez III, MD POINT OF CARE TEST ORDERABLES Final Result Performing Organization Address City/[facility] Co de Phone Number [address] * POC TCO2 (10/26/2024 5:14 AM EDT) Only the most recent of6 resultswithin the time period is included. POC TCO2, Arterial 23 23 - 27 mmol/L 10/26/2024 5:31 AM EDT [facility] Blood, Arterial 10/26/2024 5 :14 AM EDT 10/26/2024 5:31 AM EDT Harvey Domínguez III, MD POINT OF CARE TEST ORDERABLES Final Result Performing Organization Address City/[facility]/ZIP Co de Phone Number [facility] [address] [facility]. [address] * POC Sodium (10/26/2024 5:14 AM EDT) Only the most recent of6 resultswithin the time period is included. POC Sodium 138 136 - 146 mmol/L 10/26/2024 5:31 AM EDT [facility] Blood, Arterial 10/26/2024 5 :14 AM EDT 10/26/2024 5:31 AM EDT Harvey Domínguez III, MD POINT OF CARE TEST ORDERABLES Final Result Performing Organization Address [facility] de Phone Number [facility] [address] [facility]. [address] * (ABNORMAL) POC Potassium (10/26/2024 5:14 AM EDT) Only the most recent of6 resultswithin the time period is included. POC Potassium 2.8(LL) 3.5 - 5.3 mmol/L 10/26/2024 5:31 AM EDT [facility] Blood, Arterial 10/26/2024 5 :14 AM EDT 10/26/2024 5:31 AM EDT Harvey Domínguez III, MD POINT OF CARE TEST ORDERABLES Final Result Performing Organization Address City/[facility] Co de Phone Number [facility] [address] [facility]. [address] * (ABNORMAL) POC PO2 (10/26/2024 5:14 AM EDT) Only the most recent of6 resultswithin the time period is included. POC pO2, Arterial 133(H) 80 - 100 mm Hg 10/26/2024 5:31 AM EDT [facility] Blood, Arterial 10/26/2024 5 :14 AM EDT 10/26/2024 5:31 AM EDT us Harvey Domínguez III, MD POINT OF CARE TEST ORDERABLES Final Result Performing Organization Address City/[facility] Co de Phone Number [facility] [address] [facility]. [address] * POC PCO2 (10/26/2024 5:14 AM EDT) Only the most recent of6 resultswithin the time period is included. POC pCO2, Arterial 45 35 - 45 mm Hg 10/26/2024 5:31 AM EDT [facility] Blood, Arterial 10/26/2024 5 :14 AM EDT 10/26/2024 5:31 AM EDT us Harvey Domínguez III, MD POINT OF CARE TEST ORDERABLES Final Result Performing Organization Address [facility] Co de Phone Number [facility] [address] [facility]. [address] * (ABNORMAL) POC O2 SAT (10/26/2024 5:14 AM EDT) Only the most recent of6 resultswithin the time period is included. POC O2 Saturation, Arterial 99(H) 95 - 98 % 10/26/2024 5:31 AM EDT [facility] Blood, Arterial 10/26/2024 5 :14 AM EDT 10/26/2024 5:31 AM EDT Harvey Domínguez III, MD POINT OF CARE TEST ORDERABLES Final Result Performing Organization Address City/[facility] Co de Phone Number [facility] [address] [facility]. [address] * POC HCO3 (10/26/2024 5:14 AM EDT) Only the most recent of6 resultswithin the time period is included. POC HCO3, Arterial 22 22 - 26 mmol/L 10/26/2024 5:31 AM EDT [facility] Blood, Arterial 10/26/2024 5 :14 AM EDT 10/26/2024 5:31 AM EDT us Harvey Domínguez III, MD POINT OF CARE TEST ORDERABLES Final Result Performing Organization Address City/[facility]/ZIP Co de Phone Number [facility] [address] [facility]. [address] * POC Chloride (10/26/2024 5:14 AM EDT) Only the most recent of6 resultswithin the time period is included. POC Chloride 104 98 - 110 mmol/L 10/26/2024 5:31 AM EDT [facility] Blood, Arterial 10/26/2024 5 :14 AM EDT 10/26/2024 5:31 AM EDT us Harvey Domínguez III, MD POINT OF CARE TEST ORDERABLES Final Result Performing Organization Address [facility] Co de Phone Number [facility] [address] [facility]. [address] * (ABNORMAL) POC Base Excess (10/26/2024 5:14 AM EDT) Only the most recent of6 resultswithin the time period is included. POC Base Excess, Arterial -5(L) -2 - 3 mmol/L 10/26/2024 5:31 AM EDT [facility] Blood, Arterial 10/26/2024 5 :14 AM EDT 10/26/2024 5:31 AM EDT us Harvey Domínguez III, MD POINT OF CARE TEST ORDERABLES Final Result Performing Organization Address City/[facility] Co de Phone Number [facility] [address] * POC Anion Gap (10/26/2024 5:14 AM EDT) Only the most recent of6 resultswithin the time period is included. POC Anion Gap, Arterial 12 3 - 16 mmol/L 10/26/2024 5:31 AM EDT [facility] Blood, Arterial 10/26/2024 5 :14 AM EDT 10/26/2024 5:31 AM EDT us Harvey Domínguez III, MD POINT OF CARE TEST ORDERABLES Final Result Performing Organization Address City/[facility] Co de Phone Number [facility] [address] [facility]. [address] * POC Sample Type (10/26/2024 5:14 AM EDT) Only the most recent of6 resultswithin the time period is included. POC Sample Type Arterial 10/26/2024 5:31 AM EDT [facility] Blood, Arterial 10/26/2024 5 :14 AM EDT 10/26/2024 5:31 AM EDT us Harvey Domínguez III, MD POINT OF CARE TEST ORDERABLES Final Result Performing Organization Address [facility] de Phone Number [facility] [address] [facility]. [address] * (ABNORMAL) POC pH (10/26/2024 5:14 AM EDT) Only the most recent of6 resultswithin the time period is included. POC pH, Arterial 7.29(L) 7.35 - 7.45 10/26/2024 5:31 AM EDT [facility] Blood, Arterial 10/26/2024 5 :14 AM EDT 10/26/2024 5:31 AM EDT us Harvey Domínguez III, MD POINT OF CARE TEST ORDERABLES Final Result Performing Organization Address City/[facility] Co de Phone Number [facility] [address] * (ABNORMAL) POC hematocrit (10/26/2024 5:14 AM EDT) Only the most recent of6 resultswithin the time period is included. POC Hematocrit 28.0(L) 40 - 52 % 10/26/2024 5:31 AM EDT [facility] Blood, Arterial 10/26/2024 5 :14 AM EDT 10/26/2024 5:31 AM EDT us Harvey Domínguez III, MD POINT OF CARE TEST ORDERABLES Final Result Performing Organization Address [facility] Co de Phone Number [facility] [address] * (ABNORMAL) POC Ionized Calcium (10/26/2024 5:14 AM EDT) Only the most recent of6 resultswithin the time period is included. POC Ionized Calcium 5.50(H) 4.50 - 5.30 mg/dL 10/26/2024 5:31 AM EDT [facility] Blood, Arterial 10/26/2024 5 :14 AM EDT 10/26/2024 5:31 AM EDT us Harvey Domínguez III, MD POINT OF CARE TEST ORDERABLES Final Result Performing Organization Address [facility] Co de Phone Number [facility] [address] [facility]. [address] * (ABNORMAL) POC Glucose (10/26/2024 5:14 AM EDT) Only the most recent of6 resultswithin the time period is included. POC Glucose, Arterial 183(H) 70 - 100 mg/dL 10/26/2024 5:31 AM EDT [facility] Blood, Arterial 10/26/2024 5 :14 AM EDT 10/26/2024 5:31 AM EDT us Harvey Domínguez III, MD POINT OF CARE TEST ORDERABLES Final Result Performing Organization Address [facility]/ZIP Co de Phone Number [facility] [address] [facility]. [address] * (ABNORMAL) POC Hemoglobin (10/26/2024 5:14 AM EDT) Only the most recent of6 resultswithin the time period is included. POC Hemoglobin 9.5(L) 14.0 - 18.0 g/dL 10/26/2024 5:31 AM EDT [facility] Blood, Arterial 10/26/2024 5 :14 AM EDT 10/26/2024 5:31 AM EDT us Harvey Domínguez III, MD POINT OF CARE TEST ORDERABLES Final Result Performing Organization Address [facility] Co de Phone Number [facility] [address] [facility] * (ABNORMAL) TEG-Global With Lysis (Baseline TEG with LY30, Will NOT Show Heparin Effect) (53:31 AM EDT) Citrated Kaolin Reaction Time (TEGLYSIS) 6.8 4.6 - 9.1 minutes 10/26/2024 5:02 AM EDT [facility] Citrated Rapid Teg Maximum Amplitude (TEGLYSIS) <40.0(L) 52.0 - 70.0 mm 10/26/2024 5:02 AM EDT [facility] Citrated Functional Fibrinogen Maximum Amplitude (TEGLYSIS) <4.0(L) 15.0 - 32.0 mm 10/26/2024 5:02 AM EDT [facility] Citrated Kaolin Percent Lysis (TEGLYSIS) 1.4 0.0 - 2.6 % 10/26/2024 5:02 AM EDT [facility] Whole Blood (Citrate) 10/26/2024 3:31 AM EDT 10/26/2024 3:40 AM EDT us Eebr Quinones MD LAB BLOOD ORDERABLES Fin al Result [facility] [address] * CENTRAL LINE SINGLE LUMEN PERFORMABLE (10/25/2024 11:13 PM EDT) Ben Pope MD - 10/25/2024 11:13 PM EDT Ben Blake MD 10/26/2024 7:45 PM [place] Emily Cath Date/Time: 10/25/2024 11:13 PM Performed [...] 11:08 PM EDT) Culture Result <1,000 cfu/mL [facility] Culture Result Skin/Urogeni rony Mckayla. No Further Workup. [facility] Newly Placed Berkowitz Urine URINE SPECIMEN / Unknown 10/25/2024 11:08 PM EDT Comment:urine culture Narrative [facility] - 10/28/2024 9:59 AM EDT urine culture urine culture Harvey Domínguez III, MD MICROBIOLOGY - GENE RAL ORDERABLES Final Result [facility] [address] [place] [address], [facility] * Insert Arterial Line (10/25/2024 10:45 PM [...] + IgM) Nonreactive 10/25/2024 11:13 PM EDT [facility] Serum 10/25/2024 10:1 7 PM EDT 10/25/2024 10:17 PM EDT Narrative [facility] - 10/25/2024 11:13 PM EDT HAV antibodies not detected us Aysha Gill MD LAB BLOOD ORDERABLES F inal Result [facility] [address] * Iron Studies (Iron + TIBC) (10/25/2024 10:17 PM EDT) Only the most recent of2 resultswithin the time period is included. Iron 128 50 - 212 ug/dL 10/25/2024 10:44 PM EDT [facility] % Iron Saturation SEE COMMENT 15.0 - 55.0 % 10/25/2024 10:44 PM EDT [facility] Comment:Unable to calculate result because contributing result outside reportable range.. TIBC SEE COMMENT 261 - 462 ug/dL 10/25/2024 10:44 PM EDT [facility] Comment:Unable to calculate result because contributing result outside reportable range.. Serum 10/25/2024 10:1 7 PM EDT 10/25/2024 10:17 PM EDT us Aysha Gill MD LAB BLOOD ORDERABLES F inal Result [facility] [address] * Hepatitis B Core Antibody (10/25/2024 10:17 PM EDT) Hep B Core Total Ab Nonreactive Nonreactive 10/25/2024 11:07 PM EDT [facility] Comment:Health Department no tified in accordance with reportable infectious disease guidelines. Serum 10/25/2024 10:1 7 PM EDT 10/25/2024 10:17 PM EDT Narrative [facility] - 10/25/2024 11:07 PM EDT A nonreactive final interpretation indicates that anti-HBc antibodies were not detected in the sample; it is possible that the individual is not infected with HBV. us Aysha Gill MD LAB BLOOD ORDERABLES F inal Result Performing Organization Address [facility] Co de Phone Number [facility] [address] [facility] * Hepatitis C Antibody (10/25/2024 10:17 PM EDT) Only the most recent of4 resultswithin the time period is included. HCV Ab Nonreactive Nonreactive 10/25/2024 11:16 PM EDT [facility] Comment:Health Department no tified in accordance with reportable infectious disease guidelines. Serum 10/25/2024 10:1 7 PM EDT 10/25/2024 10:17 PM EDT Narrative [facility] - 10/25/2024 11:16 PM EDT Antibodies to HCV not detected; does not exclude the possibility of exposure to HCV. us Aysha Gill MD LAB BLOOD ORDERABLES F inal Result [facility] [address] [facility] * HIV 1+2 Antibody/Antigen with Reflex (10/25/2024 10:17 PM EDT) Only the most recent of2 resultswithin the time period is included. HIV 1+2 AB/AGN Nonreactive Nonreactive 10/25/2024 11:03 PM EDT [facility] Serum 10/25/2024 10:1 7 PM EDT 10/25/2024 10:16 PM EDT Narrative [facility] - 10/25/2024 11:03 PM EDT \HIVRNR Aysha Gill MD LAB BLOOD ORDERABLES F inal Result [facility] [address] [facility] * (ABNORMAL) Hepatitis B Surface Antibody, Quantitati (10/25/2024 10:17 PM EDT) Only the most recent of3 resultswithin the time period is included. HBSAB NUMBER 10.70(H) 0.00 - 9.99 mIU/mL 10/25/2024 11:52 PM EDT [facility] Hep B S Ab Equivocal (A) Nonreactive 10/25/2024 11:52 PM EDT [facility] Serum 10/25/2024 10:1 7 PM EDT 10/25/2024 10:17 PM EDT Aysha Gill MD LAB BLOOD ORDERABLES F inal Result [facility] [address] [facility] * Hepatitis B surface antigen (10/25/2024 10:17 PM EDT) Only the most recent of4 resultswithin the time period is included. Hep B Surface Ag Nonreactive Nonreactive 10/25/2024 11:12 PM EDT [facility] Comment:Health Department no tified in accordance with reportable infectious disease guidelines. Serum 10/25/2024 10:1 7 PM EDT 10/25/2024 10:17 PM EDT Narrative [facility] - 10/25/2024 11:12 PM EDT Specimen is considered negative for HBsAg. us Aysha Gill MD LAB BLOOD ORDERABLES F inal Result [facility] [address] [facility] * (ABNORMAL) APTT, NO ANTICOAGULANT (10/25/2024 10:17 PM EDT) aPTT 41.7(H) 25.5 - 35.0 seconds 10/25/2024 10:36 PM EDT [facility] Plasma 10/25/2024 10:1 7 PM EDT 10/25/2024 10:17 PM EDT us Aysha Gill MD LAB BLOOD ORDERABLES F inal Result Performing Organization Address City/[facility]/ZIP Co de Phone Number [facility] [address] [facility] * PTH (10/25/2024 10:17 PM EDT) PTH 36.0 12.0 - 88.0 pg/mL 10/25/2024 11:01 PM EDT [facility] Serum 10/25/2024 10:1 7 PM EDT 10/25/2024 10:17 PM EDT us Aysha Gill MD LAB BLOOD ORDERABLES F inal Result Performing Organization Address City/[facility]/ZIP Co de Phone Number [facility] [address] [facility] * (ABNORMAL) Ferritin (10/25/2024 10:17 PM EDT) Only the most recent of2 resultswithin the time period is included. Ferritin 623.2(H) 23.9 - 336.2 ng/mL 10/25/2024 11:02 PM EDT [facility] Serum 10/25/2024 10:1 7 PM EDT 10/25/2024 10:17 PM EDT us Aysha Gill MD LAB BLOOD ORDERABLES F inal Result [facility] [address] * (ABNORMAL) Venous Blood Gas, Line/Syringe (10/25/2024 10:00 PM EDT) Only the most recent of8 resultswithin the time period is included. PH-Line Draw 7.38 7.32 - 7.42 10/25/2024 10:08 PM EDT [facility] PCO2-Line Draw 33(L) 41 - 51 mm Hg 10/25/2024 10:08 PM EDT [facility] PO2-Line Draw 33 25 - 40 mm Hg 10/25/2024 10:08 PM EDT [facility] HCO3-Line Draw 20(L) 24 - 28 mmol/L 10/25/2024 10:08 PM EDT [facility] CO2 Content-Line Draw 21(L) 25 - 29 mmol/L 10/25/2024 10:08 PM EDT [facility] Base Excess-Line Draw -5.0(L) -2.0 - 3.0 mmol/L 10/25/2024 10:08 PM EDT [facility] %HBO2-Line Draw 53.8 40.0 - 70.0 % 10/25/2024 10:08 PM EDT [facility] Carboxyhgb-Ludivina e Draw 1.9 % 10/25/2024 10:08 PM EDT [facility] Comment: CARBOXYHEMOGLOBIN (CO) REFERENCE RANGES: Non-Smokers: <2 % Smokers: <8 % TOXIC: >20 % Methemoglobin- Line Draw 0.2 0.0 - 1.5 % 10/25/2024 10:08 PM EDT [facility] Reduced Hemoglobin-Ludivina e Draw 44.1(H) 0.0 - 5.0 % 10/25/2024 10:08 PM EDT [facility] Venous, Line Draw 10/25/2024 10:00 PM EDT 10/25/2024 10:04 PM EDT Aysha Gill MD LAB BLOOD ORDERABLES F inal Result Performing Organization Address [facility] de Phone Number [address] * Donor Specific Antibody (DSA) (10/25/2024 10:00 PM EDT) Pathologist [facility] AntiDonor Antibodies The request and specimen(s) for this test have been received and transported to the [facility] [place] at [address] [place] [address]. The [facility] will report results directly to the client. 10/25/2024 10:20 PM EDT [facility] Comment:Testing performed by [facility], [facility], [address] [place] [address]. The [facility] report has been forwarded to the appropriate ordering location. Please refer to this report for patient results. Serum 10/25/2024 10:0 0 PM EDT 10/25/2024 10:20 PM EDT Aysha Gill MD LAB BLOOD ORDERABLES F inal Result Performing Organization Address [facility] de Phone Number [address] * Hepatitis C RNA, Quant Reflex to Genotyp (10/25/2024 8:18 PM EDT) Pathologist [facility] International Units Not Detected IU/mL 10/27/2024 11:03 AM EDT [facility] Comment:Test methodology for HCV RNA quantification is an FDA-approved nucleic acid amplification assay. The Lower Limit of Quantitation (LLOQ) is 15 IU/mL. The linear range of the assay is 15-100,000,000 IU/mL. The Limit of Detection (LoD) is 12.0 IU/mL for EDTA plasma. The reference range is Not Detected. IU log10 See Note log 10 IU/mL 10/27/2024 11:03 AM EDT [facility] Comment:HCV RNA not detected . Plasma 10/25/2024 8:18 PM EDT 10/25/2024 10:27 PM EDT Aysha Gill MD LAB BLOOD ORDERABLES F inal Result Performing Organization Address [facility] de Phone Number [facility] [address] [place] [address]. [address] * Toxoplasma gondii antibody, IgG (10/25/2024 8:18 PM EDT) Only the most recent of2 resultswithin the time period is included. Toxoplasma Gondii IgG <3.0 0.0 - 7.1 IU/mL 10/27/2024 7:55 AM EDT [facility] Comment: Negative <7.2 Equivocal 7.2 - 8.7 Positive >8.7 Serum 10/25/2024 8:18 PM EDT 10/27/2024 8:06 AM EDT Narrative [facility] - 10/27/2024 8:06 AM EDT PERFORMED AT: [facility] [address] [id number] CEMENT BLOCK MAKER: Bassam Khalil, PhD PHONE: [phone] Aysha Gill MD LAB BLOOD ORDERABLES F inal Result Performing Organization Address [facility] Co de Phone Number [facility] [address] [place] [address]. [address] * ABO/Rh (10/25/2024 7:46 PM EDT) Only the most recent of6 resultswithin the time period is included. Pathologist [facility] ABO Grouping O 10/25/2024 10:23 PM EDT [facility] Rh Type Positive 10/25/2024 10:23 PM EDT [facility] Blood 10/25/2024 7:46 PM EDT 10/25/2024 9:54 PM EDT Ben Blake MD BLOOD BANK TEST ORDERABLES Fi nal Result Performing Organization Address City/[facility]/ZIP Co de Phone Number [facility] [address] * Antibody Screen (10/25/2024 7:46 PM EDT) Only the most recent of4 resultswithin the time period is included. Antibody Screen Negative 10/25/2024 10:41 PM EDT [facility] Blood 10/25/2024 7:46 PM EDT 10/25/2024 9:54 PM EDT Narrative [facility] - 10/25/2024 10:44 PM EDT Testing performed by [facility] Ben Blake MD BLOOD BANK TEST ORDERABLES Fi nal Result Performing Organization Address [facility] Co de Phone Number [facility] [address] [facility]. [address] * [facility] - HLA Antibody-Detailed Report (10/22/2024 12:32 PM EDT) 10/22/2024 12:3 2 PM EDT us Abdulkadir Gaspar MD LAB BLOOD ORDERABLES Final Resul t Performing Organization Address City/[facility] Co de Phone Number [facility] [address] [facility] [address] * HOX - HLA CROSSMATCH + Detailed Antibody (10/20/2024 5:04 PM EDT) 10/20/2024 5:04 PM EDT us Abdulkadir Gaspar MD LAB BLOOD ORDERABLES Final Resul t Performing Organization Address City/[facility]/ZIP Co de Phone Number [facility] [address] [facility] [place] [address] * [facility] - ABO Typing Report (10/20/2024 5:03 PM EDT) 10/20/2024 5:03 PM EDT us Abdulkadir Gaspar MD LAB BLOOD ORDERABLES Final Resul t Performing Organization Address City/[facility]/ZIP Co de Phone Number [facility] [address] [place] [address] * X-ray Comparison Images (10/20/2024 9:10 AM EDT) Only the most recent of7 resultswithin the time period is included. Narrative EXTERNAL - 10/20/2024 9:10 AM EDT Images associated with this accession number were presented to us for comparison to an examination performed here. us Provider Not In System IMG DIAGNOSTIC IMAGING OR DERABLES Final Result Performing Organization Address [facility] Co de Phone Number EXTERNAL * PRA-HLA Ab Screen (Cytotoxic) (10/15/2024 6:08 AM EDT) [facility] The request and specimen(s) for this test have been received and transported to the [facility] at [address] [place] [address]. The [facility] will report results directly to the client. 10/15/2024 6:42 AM EDT [facility] Comment:The request and spec imen(s) for this test have been received and transported to the [facility] [place] at [address] [place] [address]. The [facility] will report results directly to the client. Serum 10/15/2024 6:08 AM EDT 10/15/2024 6:42 AM EDT us Cosmo Pacheco MD LAB BLOOD ORDERABLES Final Resul t Performing Organization Address [facility]/ZIP Co de Phone Number [facility] [address] [place] [address] * LEFT HEART CATH (10/14/2024 2:09 PM EDT) 10/14/2024 11:4 7 AM EDT Narrative [facility] - 10/14/2024 9:27 PM EDT *[facility]* Cardiac Plasterer Helper [address] [place], [place] [address] CATHETERIZATION LAB STUDY Patient: Blair Anderson Age: [...] manner. 3. Right radial artery access. A [id number] Glidesheath - Slender - .021 sheath was [...] + !LV pressure s/d, ed !112/, 22, dP/hr=4973gn Hg/s! + + + !Aortic pressure s/d (m)!106/58 (75) ! + + + ATTESTATION: Dr. Matta was present for the entire procedure. Dr. Jay Quan was the initial author of this report. Prepared and electronically signed by Irving Matta MD [id number] Procedure Note Irving Matta MD - 10/14/2024 *[facility]* Cardiac Plasterer Helper [address] [place] [address] CATHETERIZATION LAB STUDY Patient: Blair Anderson Age: [...] manner. 3. Right radial artery access. A [id number] Glidesheath - Slender - .021sheath was advanced [...] complications. Contrast: Omnipaque 350 25ml (total dose). Bwszhoski315 125ml (wasted). Radiation: Fluoroscopy time: 15min. Total [...] + !LV pressure s/d, ed !112, 22, dP/mz=6777jo Hg/s! + + + !Aortic pressure s/d (m)!106/58 (75) ! + + + ATTESTATION: Dr. Matta was present for the entire procedure. Dr. Jay Quan wasthe initial author of this report. Prepared and electronically signed by Irving Matta MD [id number] [place] [id number] Final Result [facility] * Cardiac Cath Documents [...] 5:35 AM EDT) Only the most recent of7 resultswithin the time period is included. Ammonia 203(HH) 27 - 90 ug/dL 10/13/2024 7:16 AM EDT [facility] Comment: HEMOLYSIS EVIDENT. RESULTS MAY BE INFLUENCED. Critical Result [id number] Called to and read back by: KEY MELO RN at: 10/13/2024 07:15:55 by:NISREEN Plasma 10/13/2024 5:35 AM EDT 10/13/2024 6:19 AM EDT us Magensanjay Mays DO LAB BLOOD ORDERABLES Final Resul t [facility] [address] * Vancomycin, random (10/11/2024 3:02 AM EDT) Only the most recent of5 resultswithin the time period is included. Vancomycin Random 13.4 ug/mL 10/11/2024 3:37 AM EDT [facility] Comment:Reference range not established for this test. Plasma 10/11/2024 3:02 AM EDT 10/11/2024 3:08 AM EDT us Jodi FreireD LAB BLOOD ORDERABLES Final Result Performing Organization Address [facility] Co de Phone Number [facility] [address] * IR Paracentesis incl imaging guide [...] and therapeutic paracentesis. Bakari Wahl CNP, Assistant Professor Of Dietetics Procedure and Findings: The procedure was performed [...] Using ultrasound guidance, a 10 cm, 5-F Check Centesis catheter was placed into the right [...] diagnostic andtherapeutic paracentesis. Bakari Wahl CNP, Assistant Professor Of Dietetics Procedure and Findings: The procedure was performed [...] is included. Gram Stain Result Cytospin Results: [facility] Gram Stain Result Polymorphonuclear Leukocytes Seen; [facility] Gram Stain Result No Organisms Seen; [facility] Culture Result No Growth After 5 Days [facility] Fluid ABDOMEN / Unknown 10/10/2024 1:51 PM EDT 10/10/2024 3:56 PM EDT us Gerri Peterson MD MICROBIOLOGY - GENERAL ORDERABL ES Final Result [facility] [address] * (ABNORMAL) Body fluid cell count (10/10/2024 1:51 PM EDT) Only the most recent of5 resultswithin the time period is included. Color, Fluid Yellow(A) Colorless, Pale Yellow 10/10/2024 5:29 PM EDT [facility] Clarity, Fluid Clear 10/10/2024 5:29 PM EDT [facility] Neutrophil %, Fluid 9 % 10/10/2024 5:29 PM EDT [facility] Lymphocytes %, Fluid 13 % 10/10/2024 5:29 PM EDT [facility] Mesothelial %, Fluid 6 % 10/10/2024 5:29 PM EDT [facility] Macrophage %, Fluid 72 % 10/10/2024 5:29 PM EDT [facility] RBC, Fluid 2,662 /uL 10/10/2024 4:41 PM EDT [facility] Total Nucleated Cells, Fluid 89 /uL 10/10/2024 4:41 PM EDT [facility] Comment:Total Nucleated Cell s represent WBCs and other nucleated cells in the fluid such as lining cells. Ascitic Fluid ABDOMEN / Unknown 1:51 PM EDT 10/10/2024 3:56 PM EDT us Gerri Peterson MD BODY FLUIDS AND STOOLS ORDERABL ES Final Result Performing Organization Address City/State/[facility] Co de Phone Number [facility] [address] * UPPER GI ENDOSCOPY (10/10/2024 11:48 AM EDT) 10/10/2024 11:4 8 AM EDT Narrative [facility] - 10/10/2024 12:34 PM EDT [id number] Procedure Date: 10/10/2024 11:48 AM Patient Name: Blair Anderson Date of : 1985 Admit Type: Inpatient Age: 39 Gender: Male Note Status: Finalized Attending MD: Lino Soto MD, [id number] Procedure: Upper GI endoscopy Indications: Gastroesopahgeal variceal [...] verified by the physician, the nurse, the granite polisher apprentice and the sterile preparation technician in the pre-procedure area in [...] to hypotension Procedure Code(s): --- Professional --- 55844, GC, Esophagogastroduodenoscopy, flexible, transoral; diagnostic, including collection of specimen(s) by brushing or washing, when performed (separate procedure) Diagnosis Code(s): --- Professional --- I85.00, Esophageal varices without bleeding K76.6, Portal hypertension K31.89, Other diseases of stomach and duodenum CPT copyright 2022 [employer]. All rights reserved. The codes documented in this report are preliminary and upon medical coder review may be revised to [...] 12:10:16 PM Scope Out: 12:17:[address] [place] [address], [id number] us Provider Not In System PROCEDURE/MINOR SURGICAL ORDERABLES Final Result [facility] * ECHO STRESS W/ CONTRAST (10/09/2024 4:37 PM EDT) Anatomical Region Laterality Modality Chest Ultrasound 10/09/2024 2:40 PM EDT Narrative 10/09/2024 6:45 PM EDT * [facility]* [address] [place] [address] Stress Echocardiogram Patient: Blair Anderson Room: 8142 Height: 76in MR Number: [id number] : 1985 Weight: 262lb Account: [id number] Gender: M BP: 125 / 77 Study Date: 10/09/2024 Age: 39 BSA: 2.48m^2 Referring physician: Gerri Peterson Interpreting physician: Tonya Henriquez MD FELLOW Lisa Jha MD PERFORMING Tonya Henriquez MD AUDIT REVIEWER [employer] [place] ORDERING Gerri Peterson REFERRING Gerri Peterson ATTENDING Tequila Newton ADMITTING Gómze Blanchard Procedure:STRESS ECHO - PHARMACOLOGIC Order: Indications: [...] was augmented by the addition of hand wastewater design engineer and leg lifts. The infusion was [...] at baseline or with provocation, shows no iajnj-lh-uqyy atrial level shunt. - Pulmonary arteries: Systolic [...] at baseline or with provocation, shows no dvjhh-gh-cwxe atrial level shunt. Pulmonary artery: - Systolic [...] at baseline or with provocation, shows no chalh-gd-zyte atrial level shunt. Pericardium: - There is [...] peak heart rate and blood pressure was [id number] Hg/min. Stress testing did not produce any [...] Reviewed and confirmed by Tonya Henriquez MD [id number] Procedure Note Tonya Henriquez MD - 10/09/2024 * [facility] [place] [address] [place] [address] Stress Echocardiogram Patient: Blair Anderson Room: 8142 Height: 76in MR Number: [id number] : 1985 Weight: 262lb Account: [id number] Gender: M BP: 125 / 77 Study Date: 10/09/2024 Age: 39 BSA: 2.48m^2 Referring physician: Gerri Peterson Interpreting physician: Tonya Henriquez MD FELLOW Lisa Jha MD PERFORMING Tonya Henriquez MD AUDIT REVIEWER Soco Gan ORDERING Gerri Peterson REFERRING Gerri [...] was augmented by the addition of hand wastewater design engineer and leg lifts. The infusion was [...] at baseline or with provocation, shows no awwcb-hv-pvdn atrial level shunt. - Pulmonary arteries: Systolic [...] study at baseline or with provocation, showsno ktfax-kn-mogf atrial level shunt. Pulmonary artery: - Systolic [...] at baseline or with provocation, shows no jgilv-yv-kkjy atrial level shunt. Pericardium: - There is [...] heart rate). The maximal predicted heart rate [id number]. The target heart rate was 152bpm. The target heart rate was achieved.The heart rate response to stress is normal. There is a normal resting blood pressure with an appropriate response to stress. The rate-pressureproduct for the peak heart rate and blood pressure was [id number] Hg/min. Stress testing did not produce any [...] Reviewed and confirmed by Tonya Henriquez MD [id number] us Gerri Peterson MD CV ECHO ORDERABLES Final Result * Renal Tx Recipient (10/09/2024 4:59 AM EDT) Pathologist [facility] Renal Transplant Recipient The request and specimen(s) for this test have been received and transported to the [facility] at [address] [place] [address]. The [facility] will report results directly to the client. 10/09/2024 7:26 AM EDT [facility] Blood 10/09/2024 4:59 AM EDT 10/09/2024 7:26 AM EDT us Aaron Gonzalez MD LAB BLOOD ORDERABLES Final Resu lt [facility] [address] [place] [address], [facility] * (ABNORMAL) MMR(IgG) Panel (Measles, Mumps, Rubella) (10/08/2024 10:25 AM EDT) Only the most recent of2 resultswithin the time period is included. Mumps IgG Positive 10/08/2024 11:39 AM EDT [facility] MUMPS IGG NUM 99.00(H) 0.0 - 8.9 U/mL 10/08/2024 11:39 AM EDT [facility] Rubella IgG Scr Positive 10/08/2024 11:40 AM EDT [facility] RUB NUM 4.15(H) 0.00 - 0.89 INDEX 10/08/2024 11:40 AM EDT [facility] Rubeola Ab, IgG Positive 10/08/2024 11:39 AM EDT [facility] RUB IGG NUM 273.00(H) 0.00 - 13.40 U/mL 10/08/2024 11:39 AM EDT [facility] Serum 10/08/2024 10:2 5 AM EDT 10/08/2024 10:49 AM EDT Narrative [facility] - 10/08/2024 11:40 AM EDT Presence [...] ORDERABLES Final Resu lt Performing Organization Address City/[facility]/ZIP Co de Phone Number [facility] [address] [place] [address]. [address] * QuantiFERON TB2 Ag (10/08/2024 10:25 AM EDT) QuantiFERON TB2 Ag Value 0.07 10/10/2024 10:41 AM EDT [facility] Plasma 10/08/2024 10:2 5 AM EDT 10/08/2024 11:05 AM EDT Gerri Peterson MD LAB BLOOD ORDERABLES Final Resu lt [facility] [address] [place] [address]. [address] * QuantiFERON TB1 Ag (10/08/2024 10:25 AM EDT) QuantiFERON TB1 Ag Value 0.06 10/10/2024 10:41 AM EDT [facility] Plasma 10/08/2024 10:2 5 AM EDT 10/08/2024 11:05 AM EDT Gerri Peterson MD LAB BLOOD ORDERABLES Final Resu lt [facility] [address] * QuantiFERON Nil (10/08/2024 10:25 AM EDT) QuantiFERON Nil 0.06 10:41 AM EDT [facility] Plasma 10/08/2024 10:2 5 AM EDT 10/08/2024 11:05 AM EDT Gerri Peterson MD LAB BLOOD ORDERABLES Final Resu lt Performing Organization Address [facility]/ZIP Co de Phone Number [facility] [address] [facility]. [address] * QuantiFERON Mitogen (10/08/2024 10:25 AM EDT) QuantiFERON Interpretation Negative Negative 10/10/2024 10:41 AM EDT [facility] Comment:Negative result geovanny cates M. tuberculosis infection is NOT likely. Negative results do not preclude tuberculosis infection (especially in immunosuppressed patients). Negative results have a TB antigen minus Nil value less than 0.35 IU/mL. In cases with high suspicion of disease, retesting or additional testing with medical evaluation may be useful. QuantiFERON Mitogen 4.87 10/10 10:41 AM EDT [facility] Plasma 10/08/2024 10:2 5 AM EDT 10/08/2024 11:05 AM EDT Narrative [facility] - 10/10/2024 10:41 AM EDT The [...] ORDERABLES Final Resu lt [facility] [address] [facility]. [address] * (ABNORMAL) Vitamin D 25 Hydroxy (10/08/2024 10:25 AM EDT) Vit D, 25-Hydroxy 7.1(L) 30.0 - 100.0 ng/mL 10/08/2024 11:36 AM EDT [facility] Comment: Vitamin D deficiency has been defined by the [employer] of [employer] (IOM) and an Endocrine Society [...] ORDERABLES Final Resu lt [facility] [address] [facility]. [address] * Reticulocyte Count, Auto (10/08/2024 7:41 AM EDT) Retic Ct Pct 1.35 0.50 - 2.00 % 10/08/2024 9:12 AM EDT [facility] Retic Ct Abs 26,190 25,000 - 90,000 /uL 10/08/2024 9:14 AM EDT [facility] Immature Retic Fract 0.37 0.09 - 0.56 10/08/2024 9:12 AM EDT [facility] Whole Blood 10/08/2024 7:41 AM EDT 10/08/2024 8:51 AM EDT Result [facility] Gómez Blanchard MD LAB BLOOD ORDERABLES Final Res ult Performing Organization Address [facility] Co de Phone Number [facility] [address] [facility]. [address] * (ABNORMAL) Haptoglobin (10/08/2024 7:41 AM EDT) Haptoglobin <30(L) 44 - 215 mg/dL 10/08/2024 8:53 AM EDT [facility] Serum 10/08/2024 7:41 AM EDT 10/08/2024 7:51 AM EDT Result [facility] Kush Posada MD, PhD LAB BLOOD ORDERABLES Final Result Performing Organization Address [facility] Co de Phone Number [facility] [address] [facility]. [address] * (ABNORMAL) Lactate dehydrogenase (10/08/2024 5:36 AM EDT) Pathologist [facility] LD 102(L) 110 - 270 U/L 10/08/2024 8:20 AM EDT [facility] Plasma 10/08/2024 5:36 AM EDT 10/08/2024 7:58 AM EDT Result [facility] Gómez Blanchard MD LAB BLOOD ORDERABLES Final Res ult Performing Organization Address [facility] de Phone Number [facility] [address] [facility]. [address] * Enteric Pathogen Panel (10/07/2024 10:50 PM EDT) Only the most recent of2 resultswithin the time period is included. Pathologist [facility] Campylobacter Group (C. ecoli, C. jejuni, C. trino) Not Detected Not Detected 10/08/2024 4:40 AM EDT [facility] Salmonella species Not Detected Not Detected 10/08/2024 4:40 AM EDT [facility] Shigella species Not Detected Not Detected 10/08/2024 4:40 AM EDT [facility] Vibrio Group (Vibrio cholerae, Vibrio parahaemolyticus) Not Detected Not Detected 10/08/2024 4:40 AM EDT [facility] Yersinia enterocolitica Not Detected Not Detected 10/08/2024 4:40 AM EDT [facility] Shiga toxin 1 Not Detected Not Detected 10/08/2024 4:40 AM EDT [facility] Shiga toxin 2 Not Detected Not Detected 10/08/2024 4:40 AM EDT [facility] Norovirus Not Detected Not Detected 10/08/2024 4:40 AM EDT [facility] Rotavirus Not Detected Not Detected 10/08/2024 4:40 AM EDT [facility] Comment: The Enteric Pathogen Panel is [...] FLUIDS AND STOOLS ORDERABLE S Final Result [facility] [address] [facility]. [address] * Urine Drug Confirmation (10/07/2024 10:50 PM EDT) Only the most recent of2 resultswithin the time period is included. BARBITURATES NOT PRESENT 10/09/2024 1:33 PM EDT [facility] BENZODIAZEPINES PRESENT 1:33 PM EDT [facility] Nordiazepam 3 ng/mL 10/09/2024 1:33 PM EDT [facility] Temazepam 6 ng/mL 10/09/2024 1:33 PM EDT [facility] CANNABINOIDS NOT PRESENT 10/09/2024 1:33 PM EDT [facility] COMMERCIAL TRAILER TRUCK DRIVER STIMULANTS NOT PRESENT 1:33 PM EDT [facility] OPIOID ANALGESICS PRESENT 025 1:33 PM EDT [facility] Oxycodone 300 ng/mL 10/09/2024 1:33 PM EDT [facility] Oxymorphone 32 ng/mL 10/09/2024 1:33 PM EDT [facility] Tramadol >1000 ng/mL 10/09/2024 1:33 PM EDT [facility] OPIOID ANTAGONISTS NOT PRESENT 10/09 1:33 PM EDT [facility] SEDATIVES/MUSCLE RELAXANTS NOT PRESENT 10/09/2024 1:33 PM EDT [facility] TRICYCLIC ANTIDEPRESSANTS NOT PRESENT 10/09/2024 1:33 PM EDT [facility] Urine 10/07/2024 10:5 0 PM EDT 10/08/2024 3:00 AM EDT Gerri Peterson MD URINE ORDERABLES Final Result Performing Organization Address City/[facility] Co de Phone Number [facility] [address] * Giardia Cryptosporidium Antigens (10/07/2024 10:50 PM EDT) Cryptosporidium Ag Negative Negative 2024 7:59 AM EDT [facility] Giardia Ag Negative Negative 10/08/2024 7:59 AM EDT [facility] Comment: Detection of Giardia and Cryptosporidium antigen is more sensitive and specific than microscopy. Because antigens are shed continuously, repeat testing is rarely warranted. Feces 10/07/2024 10:5 0 PM EDT 10/08/2024 1:53 AM EDT Comment:F Bisi Hernandez DO MICROBIOLOGY - GENERAL ORDERABLE S Final Result [facility] [address] [facility]. [place] [id number], [facility] * Comprehensive Drug Screen (10/07/2024 10:50 PM EDT) Only the most recent of2 resultswithin the time period is included. Creatinine, Ur CANCELED mg/dL 10/08/2024 7:09 AM EDT [facility] Comment:The released value 8 7.30 was canceled by YAQUELIN on 10/08/2024 07:09 BARBITURATES CANCELED [facility] Butalbital CANCELED [facility] Phenobarbital CANCELED [facility] Secobarbital CANCELED [facility] BENZODIAZEPINES CANCELED [facility] Alprazolam CANCELED [facility] Clonazepam CANCELED [facility] Diazepam CANCELED [facility] Alpha-Hydroxyalprazo mcknight CANCELED [facility] Lorazepam CANCELED [facility] Midazolam CANCELED [facility] Nordiazepam CANCELED [facility] Oxazepam CANCELED [facility] Temazepam CANCELED [facility] CANNABINOIDS CANCELED [facility] THC-COOH CANCELED [facility] COMMERCIAL TRAILER TRUCK DRIVER STIMULANTS CANCELED [facility] Cocaine Metabolite(benzoylec gonine) CANCELED [facility] Amphetamine CANCELED [facility] Methamphetamine CANCELED [facility] MDA CANCELED [facility] MDEA CANCELED [facility] Phencyclindine (PCP) CANCELED [facility] OPIOID ANALGESICS CANCELED [facility] Heroin Metabolite(6-RAMONA) CANCELED [facility] Codeine CANCELED [facility] Morphine CANCELED [facility] Hydrocodone CANCELED [facility] Hydromorphone CANCELED [facility] Oxycodone CANCELED [facility] Oxymorphone CANCELED [facility] Meperidine CANCELED [facility] Normeperidine CANCELED [facility] Methadone CANCELED [facility] Methadone Metabolite (EDDP) CANCELED [facility] Tramadol CANCELED [facility] Fentanyl CANCELED [facility] Norfentanyl CANCELED [facility] Sufentanil CANCELED [facility] OPIOID ANTAGONISTS CANCELED [facility] Buprenorphine CANCELED [facility] Norbuprenorphine CANCELED [facility] Naltrexone CANCELED [facility] Naloxone CANCELED [facility] SEDATIVES/MUSCLE RELAXANTS CANCELED [facility] Carisoprodol CANCELED [facility] Meprobamate CANCELED [facility] TRICYCLIC ANTIDEPRESSANTS CANCELED [facility] Amitriptyline CANCELED [facility] Clomipramine [facility]ED [facility] Desipramine [facility] Doxepin CANCELED [facility] Imipramine CANCELED [facility] Nortriptyline [facility] U[facility] Creatinine CANCELED mg/dL [facility] Nitrite CANCELED [facility] Glutaraldehyde CANCELED [facility] pH CANCELED 10/08/2024 7:09 AM EDT [facility] Comment:The released value 5 .6 was canceled by YAQUELIN on 10/08/2024 07:09 Specific [place] CANCELED 10/09/19 7:09 AM EDT [facility] Comment:The released value 1 .009 was canceled by YAQUELIN on 10/08/2024 07:09 Bleach CANCELED [facility] Pyridinium Chlorochromate CANCELED [facility] Urine 10/07/2024 10:5 0 PM EDT 10/08/2024 2:07 AM EDT Narrative [facility] - 10/08/2024 7:09 AM EDT See accn [id number] Gerri Peterson MD URINE ORDERABLES Edited Result - Final [facility] [address] * (ABNORMAL) Urine Drug Screen Reflex to Confirmation (10/07/2024 10:50 PM EDT) Only the most recent of2 resultswithin the time period is included. Amphetamine, 500 ng/mL Cutoff Negative Negative 10/08/2024 3:00 AM EDT [facility] Barbiturates UR, 300 ng/mL Cutoff Negative Negative 10/08/2024 3:00 AM EDT [facility] Buprenorphine, 5 ng/mL Cutoff Negative Negative 10/08/2024 3:00 AM EDT [facility] Benzodiazepines UR, 300 ng/mL Cutoff Negative Negative 10/08/2024 3:00 AM EDT [facility] Cocaine UR, 300 ng/mL Cutoff Negative Negative 10/08/2024 3:00 AM EDT [facility] Methadone, UR, 300 ng/mL Cutoff Negative Negative 10/08/2024 3:00 AM EDT [facility] Opiates UR, 300 ng/mL Cutoff Negative Negative 10/08/2024 3:00 AM EDT [facility] Oxycodone, 100 ng/mL Cutoff Presumptive Positive(A) Negative 10/08/2024 3:00 AM EDT [facility] Tricyclic Antidepressants, 300 ng/mL Cutoff Negative Negative 10/08/2024 3:00 AM EDT [facility] Comment:This test has been d eveloped and its performance characteristics determined by [facility] which is certified under the [...] Cutoff Negative Negative 10/08/2024 3:00 AM EDT [facility] Comment:This is a screening method only and may be associated with false positive and/or false negative results. Results are not definitive without additional confirmatory testing by mass spectrometry. Fentanyl, 2 ng/mL Cutoff Negative Negative 10/08/2024 3:00 AM EDT [facility] Comment:This test has been d eveloped and its performance characteristics determined by [facility] which is certified under the [...] 0 PM EDT 10/08/2024 2:08 AM EDT [facility] - 10/08/2024 3:00 AM EDT CONFIRMATION TO FOLLOW Gerri Peterson MD URINE ORDERABLES Final Result Performing Organization Address [facility]/ZIP Co de Phone Number [facility] [address] * Ova and Parasite Comprehensive w/ Giardia/Crypto (10/07/2024 10:50 PM EDT) Pathologist [facility] O & P Method: Concentration and Trichrome Stain [facility] Results No Amoeba, Ova, Or Parasites Seen. -- O and P examination of additional specimens is recommended only for symptomatic patients, immunosuppressed patients or those with an appropriate travel history. [facility] Feces FECES / Unknown 10/07/2024 1 0:50 PM EDT 10/08/2024 1:53 AM EDT Comment:F Bisi Hernandez DO MICROBIOLOGY - GENERAL ORDERABLE S Final Result Performing Organization Address [facility] Co de Phone Number [facility] [address] [facility]. [address] * Hepatitis A IgM (10/07/2024 6:38 PM EDT) Only the most recent of3 resultswithin the time period is included. [facility] Hep A IgM Nonreactive Nonreactive 10/07/2024 7:46 PM EDT [facility] Serum 10/07/2024 6:38 PM EDT 10/07/2024 6:52 PM EDT Narrative [facility] - 10/07/2024 7:46 PM EDT IgM anti-HAV not detected. Does not exclude the possibility of exposure to or infection with HAV. Levels of IgM anti-HAV may be below the cut-off in early infection. Gerri Peterson MD LAB BLOOD ORDERABLES Final Resu lt Performing Organization Address City/[facility]/ZIP Co de Phone Number [facility] [address] * Syphilis Screening (Trepia) (10/07/2024 6:37 PM EDT) Treponema Pallidum Negative Negative 10/07/2024 8:27 PM EDT [facility] Comment: No serological evidence of infection with Treponema pallidum (incubating or early primary syphilis cannot be excluded). Serum 10/07/2024 6:37 PM EDT 10/07/2024 6:50 PM EDT us Gerri Peterson MD LAB BLOOD ORDERABLES Final Resu lt [facility] [address] [place] [address], [facility] * Phosphatidylethanol Confirmation, B (10/07/2024 6:37 PM EDT) Only the most recent of6 resultswithin the time period is included. PETH 16:0/18.1 (POPETH) <10 Cutoff: 10 ng/mL 10/10/2024 10:42 AM EDT [facility] Comment: Phosphatidylethanol (PEth) homologues result [...] Cutoff: 10 ng/mL 10/10/2024 10:42 AM EDT [facility] Comment: PEth 16:0/18:2 (PLPEth) Reference ranges are not well established PEth Interpretation Negative. 10/10 10:42 AM EDT [facility] Comment: ADDITIONAL INFORMATION This report is [...] Administration. Test Performed by: [facility] [address] [place] [address] Ship'S Cook: Kathy Ortiz Ph.D.; CLIA# [id number] Whole Blood 10/07/2024 6:37 PM EDT 10/10/2024 10:42 AM EDT Gerri Peterson MD LAB BLOOD ORDERABLES Final Resu lt Performing Organization Address City/[facility]/ZIP Co de Phone Number [facility] [address] [facility]. [address] * (ABNORMAL) CMV IgG Antibody (10/07/2024 6:37 PM EDT) CMV IgG Positive(A ) Negative 10/07/2024 8:26 PM EDT [facility] CMV IGG NUM 8.40(H) 0.00 - 0.59 U/mL 10/07/2024 8:26 PM EDT [facility] Serum 10/07/2024 6:37 PM EDT 10/07/2024 6:50 PM EDT Gerri Peterson MD LAB BLOOD ORDERABLES Final Resu lt Performing Organization Address City/[facility]/ZIP Co de Phone Number [facility] [address] [facility]. [address] * (ABNORMAL) Alpha 1 Antitrypsin AAT Quant & Mutation (10/07/2024 6:37 PM EDT) A-1 Antitrypsin 99(L) 101 - 187 mg/dL 10/09/2024 4:28 AM EDT [facility] A-1 Antitrypsin Pheno Comment 10/10/2024 4:05 PM EDT [facility] Comment: A1A Phenotype is consistent with a heterozygous phenotype consisting of one M (normal) allele and one allele that cannot be identified at this time. The unknown allele is not consistent with Z (deficient), S (deficient), or F (deficient). MM Phenotype is considered to be normal , producing normal serum levels of oaaoq-5-knglhssc inhibitor and not associated with clinical disease. [...] PM EDT 10/10/2024 4:08 PM EDT Narrative [facility] - 10/10/2024 4:08 PM EDT PERFORMED AT: [facility] [address] [id number] CEMENT BLOCK MAKER: Bassam Khalil, PhD PHONE: [phone] PERFORMED AT: [facility] [address] [id number] CEMENT BLOCK MAKER: Mandy Abdul MD PHONE: [phone] us Gerri Peterson MD LAB BLOOD ORDERABLES Final Resu lt [facility] [address] [place], [place] [id number] [place] [address] * Strongyloides Ab (10/07/2024 6:37 PM EDT) Strongyloides Ab Negative Negative 10/11/19 11:51 AM EDT [facility] Serum 10/07/2024 6:37 PM EDT 10/10/2024 12:07 PM EDT Narrative [facility] - 10/10/2024 12:07 PM EDT PERFORMED AT: [facility] [id number] CEMENT BLOCK MAKER: Mandy Abdul MD PHONE: [phone] us Gerri Peterson MD LAB BLOOD ORDERABLES Final Resu lt Performing Organization Address City/[facility]/ZIP Co de Phone Number [facility] [address] [place] [address] * Ethanol, Serum (10/07/2024 6:37 PM EDT) Only the most recent of3 resultswithin the time period is included. Pathologist [facility] Ethanol <10 0 - 10 mg/dL 10/07/2024 8:36 PM EDT [facility] Serum 10/07/2024 6:37 PM EDT 10/07/2024 6:50 PM EDT us Gerri Peterson MD LAB BLOOD ORDERABLES Final Resu lt Performing Organization Address City/[facility]/ZIP Co de Phone Number [facility] [address] [place] [address] * Katie-Watkins virus early antigen antibody, IgG (10/07/2024 6:37 PM EDT) EBV Early Antigen Ab, IgG <9.0 0.0 - 8.9 U/mL 10/09/2024 2:16 PM EDT [facility] Comment: Negative < 9.0 Equivocal 9.0 - 10.9 Positive >10.9 Serum Frozen 10/07/2024 6:37 PM EDT 10/09/2024 3:07 PM EDT Narrative [facility] - 10/09/2024 3:07 PM EDT PERFORMED AT: [facility] [address] [id number] CEMENT BLOCK MAKER: Bassam Khalil, PhD PHONE: [phone] Gerri Peterson MD LAB BLOOD ORDERABLES Final Resu lt [facility] [address] [place] [facility]. [address] * (ABNORMAL) Varicella zoster antibody, IgG (10/07/2024 6:37 PM EDT) Pathologist [facility] Varicella IgG Positive( A) Negative S/CO 10/07/2024 8:34 PM EDT [facility] Comment:Result indicates the presence of detectable VZV IgG antibodies. A positive result is generally indicative of exposure to the pathogen or administration of specific immunoglobulins, but it is no indication of active infection or stage of disease. This test is not approved for determining vaccine-induced immunity to varicella zoster virus. VZV NUM 6.76(H) 0.00 - 0.99 S/CO 10/07/2024 8:34 PM EDT [facility] Serum 10/07/2024 6:37 PM EDT 10/07/2024 6:50 PM EDT Result [facility] Gerri Peterson MD LAB BLOOD ORDERABLES Final Resu lt Performing Organization Address [facility]/ZIP Co de Phone Number [facility] [address] [facility]. [address] * TSH (Thyroid Stimulating Hormone) (10/07/2024 6:37 PM EDT) Only the most recent of2 resultswithin the time period is included. Pathologist [facility] TSH 0.81 0.45 - 4.12 uIU/mL 10/07/2024 8:17 PM EDT [facility] Serum 10/07/2024 6:37 PM EDT 10/07/2024 6:50 PM EDT Gerri Peterson MD LAB BLOOD ORDERABLES Final Resu lt [facility] [address] [facility]. [address] * IgA (10/07/2024 6:37 PM EDT) Pathologist [facility] IgA 227.0 70.0 - 400.0 mg/dL 10/08/2024 11:07 AM EDT [facility] Comment:Please interpret the se findings in conjunction with clinical findings, protein electrophoresis, and immunotyping/immunofixation results. Serum 10/07/2024 6:37 PM EDT 10/07/2024 6:50 PM EDT us Gerri Peterson MD LAB BLOOD ORDERABLES Final Resu lt [facility] [address] [facility]. [place] [id number], [facility] * (ABNORMAL) Lipid Profile (10/07/2024 6:37 PM EDT) Non-HDL Cholesterol, Calculated See Note 0 - 129 mg/dL 10/07/2024 7:42 PM EDT [facility] Comment: Desirable: < 130 mg/dL Above Desirable: 130-159 mg/dL Borderline High: 160-189 mg/dL High: 190-219 mg/dL Very High: > 219 mg/dL Unable to calculate result either because contributing result(s) are outside of reportable range or are not available. Cholesterol, Total <25 0 - 200 mg/dL 10/07/2024 7:42 PM EDT [facility] Triglycerides 30 10 - 149 mg/dL 10/07/2024 7:42 PM EDT [facility] HDL 4(L) 60 - 92 mg/dL 10/07/2024 7:42 PM EDT [facility] Comment: LIPID PROFILE INTERPRETATION CHOLESTEROL,TOTAL(mg/dL) DESIRABLE: [...] ORDERABLES Final Resu lt [facility] [address] [place] [id number] * X-ray Mandible minimum 4-views (10/07/2024 6:19 [...] 3:48 PM EDT) Only the most recent of2 [...] EXAM: US ABDOMEN COMPLETE EXAM: US DUPLEX [id number] COMPLETE INDICATION: elevated bilirubin COMPARISON: Ultrasound and [...] EXAM: US ABDOMEN COMPLETE EXAM: US DUPLEX [id number] COMPLETE INDICATION: elevated bilirubin COMPARISON: Ultrasound and [...] at 10/07/2024 4:26 PM EDT Bisi Hernandez [facility] [place] ORDERABLES Final Result * AFP Tumor Marker (10/07/2024 6:00 AM EDT) Only the most recent of3 resultswithin the time period is included. [facility] AFP-Tumor Marker 2.0 0.0 - 9.0 ng/mL 10/07/2024 7:11 AM EDT [facility] Serum 10/07/2024 6:00 AM EDT 10/07/2024 6:39 AM EDT Narrative [facility] - 10/07/2024 7:11 AM EDT The testing method for AFP is a chemiluminescent immunoassay manufactured by [employer] Concentrations of AFP obtained by different assay methods or kits may vary and cannot be used interchangeably. AFP results cannot be interpreted as absolute evidence of the presence or absence of malignant disease. Ni Rivera MD LAB BLOOD ORDERABLES Final Resul t [facility] [address] [facility]. [address] * Osmolality (10/06/2024 2:50 PM EDT) [facility] Osmolality, Measured 304 278 - 305 mOsm/kg 10/06/2024 3:49 PM EDT [facility] Serum 10/06/2024 2:50 PM EDT 10/06/2024 2:56 PM EDT Jani Vanegas MD LAB BLOOD ORDERABLES Final Resul t Performing Organization Address City/[facility]/ZIP Co de Phone Number [facility] [address] [facility]. [address] * CT Head WO contrast (10/06/2024 [...] of3 resultswithin the time period is included. Sodium, Ur <10 mmol/L 10/06/2024 1:56 PM EDT [facility] Comment:Reference range not established for this test. Urine 10/06/2024 1:25 PM EDT 10/06/2024 1:32 PM EDT us Jani Vanegas MD URINE ORDERABLES Final Result Performing Organization Address [facility] Co de Phone Number [facility] [address] [place] [address]. [address] * Potassium, urine, random (10/06/2024 1:25 PM EDT) Only the most recent of3 resultswithin the time period is included. Potassium Urine Random 50.0 mmol/L 10/06/2024 1:56 PM EDT [facility] Comment:Reference range not established for this test. Urine 10/06/2024 1:25 PM EDT 10/06/2024 1:32 PM EDT us Jani Vanegas MD URINE ORDERABLES Final Result Performing Organization Address [facility] Co de Phone Number [facility] [address] [facility]. [address] * Osmolality, Urine (10/06/2024 1:25 PM EDT) Osmolality, Ur 386 50 - 1,200 mOsm/kg 10/06/2024 1:55 PM EDT [facility] Urine 10/06/2024 1:25 PM EDT 10/06/2024 1:32 PM EDT us Jani Vanegas MD URINE ORDERABLES Final Result Performing Organization Address [facility] de Phone Number [facility] [address] [facility]. [address] * Creatinine, Urine, Random (10/06/2024 1:25 PM EDT) Only the most recent of2 resultswithin the time period is included. Creatinine, Urine 87.40 mg/dL 10/06/2024 1:56 PM EDT [facility] Comment:Reference range not established for this test. Urine 10/06/2024 1:25 PM EDT 10/06/2024 1:32 PM EDT us Jani Vanegas MD URINE ORDERABLES Final Result Performing Organization Address [facility]/ZIP Co de Phone Number [facility] [address] * Chloride, urine, random (10/06/2024 1:25 PM EDT) Only the most recent of3 resultswithin the time period is included. Chloride, Ur <15 mmol/L 10/06/2024 1:56 PM EDT [facility] Comment:Reference range not established for this test. Urine 10/06/2024 1:25 PM EDT 10/06/2024 1:32 PM EDT us Jani Vanegas MD URINE ORDERABLES Final Result Performing Organization Address [facility] de Phone Number [facility] [address] * (ABNORMAL) Comprehensive Metabolic Panel (10/06/2024 7:37 AM EDT) Only the most recent of5 resultswithin the time period is included. Sodium 129(L) 133 - 146 mmol/L 10/06/2024 8:16 AM EDT [facility] Potassium 4.4 3.5 - 5.3 mmol/L 10/06/2024 8:16 AM EDT [facility] Chloride 100 98 - 110 mmol/L 10/06/2024 8:16 AM EDT [facility] CO2 18(L) 21 - 33 mmol/L 10/06/2024 8:16 AM EDT [facility] Anion Gap 11 3 - 16 mmol/L 10/06/2024 8:16 AM EDT [facility] BUN 62(H) 7 - 25 mg/dL 10/06/2024 8:16 AM EDT [facility] Creatinine 3.40(H) 0.60 - 1.30 mg/dL 10/06/2024 8:16 AM EDT [facility] Glucose 98 70 - 100 mg/dL 10/06/2024 8:16 AM EDT [facility] Calcium 9.5 8.6 - 10.3 mg/dL 10/06/2024 8:16 AM EDT [facility] Total Bilirubin 14.3(H) 0.0 - 1.5 mg/dL 10/06/2024 8:16 AM EDT [facility] AST 57(H) 13 - 39 U/L 10/06/2024 8:16 AM EDT [facility] ALT 29 7 - 52 U/L 10/06/2024 8:16 AM EDT [facility] Alkaline Phosphatase 158(H) 36 - 125 U/L 10/06/2024 8:16 AM EDT [facility] Total Protein 5.6(L) 6.4 - 8.9 g/dL 10/06/2024 8:16 AM EDT [facility] Albumin 3.6 3.5 - 5.7 g/dL 10/06/2024 8:16 AM EDT [facility] Osmolality, Calculated 286 278 - 305 mOsm/kg 10/06/2024 8:16 AM EDT [facility] EGFR 22 10/06/2024 8:16 AM EDT [facility] Comment:As [...] MD LAB BLOOD ORDERABLES Final Resul t [facility] [address] [facility]. [address] * (ABNORMAL) Salicylate Level (10/06/2024 4:01 AM EDT) Pathologist [facility] Salicylate Lvl <3(L) 10 - 30 mg/dL 10/06/2024 4:58 AM EDT [facility] Serum 10/06/2024 4:01 AM EDT 10/06/2024 4:22 AM EDT Bisi Hernandez DO LAB BLOOD ORDERABLES Final Resul t Performing Organization Address [facility]/ZIP Co de Phone Number [facility] [address] [facility]. [address] * Upper Respiratory Viral/Bacterial Panel-AUTOMOTIVE REPAIR TECHNICIAN Only (10/06/2024 3:12 AM EDT) [facility] Adenovirus Not Detected Not Detected 10/06/2024 11:38 PM EDT [facility] Coronavirus (229E,HKU1,NL63,OC 43) Not Detected Not Detected 10/06/2024 11:38 PM EDT [facility] SARS-CoV-2 Not Detected Not Detected 10/06/2024 11:38 PM EDT [facility] Human Metapneumovirus Not Detected Not Detected 10/06/2024 11:38 PM EDT [facility] Human Rhinovirus/Enterov irus Not Detected Not Detected 10/06/2024 11:38 PM EDT [facility] Influenza A Not Detected Not Detected 10/06/2024 11:38 PM EDT [facility] Influenza A H1 Not Detected Not Detected 10/06/2024 11:38 PM EDT [facility] Influenza A/H1-2009 Not Detected Not Detected 10/06/2024 11:38 PM EDT [facility] Influenza A H3 Not Detected Not Detected 10/06/2024 11:38 PM EDT [facility] Influenza B Not Detected Not Detected 10/06/2024 11:38 PM EDT [facility] Parainfluenza 1 Not Detected Not Detected 10/06/2024 11:38 PM EDT [facility] Parainfluenza 2 Not Detected Not Detected 10/06/2024 11:38 PM EDT [facility] Parainfluenza 3 Not Detected Not Detected 10/06/2024 11:38 PM EDT [facility] Parainfluenza 4 Not Detected Not Detected 10/06/2024 11:38 PM EDT [facility] Resp. Syncycial Virus A Not Detected Not Detected 10/06/2024 11:38 PM EDT [facility] Resp. Syncycial Virus B Not Detected Not Detected 10/06/2024 11:38 PM EDT [facility] Chlamydia pneumoniae Not Detected Not Detected 10/06/2024 11:38 PM EDT [facility] Mycoplasma pneumoniae Not Detected Not Detected 10/06/2024 11:38 PM EDT [facility] Comment: The Respiratory Viral-Bacterial Panel is [...] results have been sent to the [facility] in accordance with state requirements. For a fact sheet for healthcare providers, see https://www.fda.gov/media/480500/download. For a fact sheet for patients, see https://www.fda.gov/media/825420/download. Nasopharyngeal Swab NASOPHARYNGEAL SWAB / Unknown 10/06/2024 3:12 AM EDT 10/06/2024 5:41 PM EDT Comment:AUTOMOTIVE REPAIR TECHNICIAN us Bisi Hernandez DO BODY FLUIDS AND STOOLS ORDERABLE S Final Result [facility] [address] * Thyroid Function [place] (10/06/2024 1:04 AM EDT) TSH 0.84 0.45 - 4.12 uIU/mL 10/06/2024 2:20 AM EDT [facility] Serum 10/06/2024 1:04 AM EDT 10/06/2024 1:39 AM EDT Bisi Hernandez DO LAB BLOOD ORDERABLES Final Resul t Performing Organization Address City/[facility] Co de Phone Number [facility] [address] * #2 Blood culture-Peripheral site 2 (10/06/2024 1:04 AM EDT) Only the most recent of4 resultswithin the time period is included. Culture Result No Growth After 5 Days [facility] Blood BLOOD SPECIMEN / Unknown 10/06/2024 1:04 AM EDT 10/06/2024 4:57 AM EDT Narrative [facility] - 10/11/2024 5:05 AM EDT Suboptimal volume of blood received. Interpret results with caution. us Bisi Hernandez DO MICROBIOLOGY - GENERAL ORDERABLE S Final Result Performing Organization Address City/[facility]/ZIP Co de Phone Number [facility] [address] * (ABNORMAL) Acetaminophen Level (10/06/2024 1:04 AM EDT) Acetaminophen Level <10(L) 10 - 30 ug/mL 10/06/2024 2:08 AM EDT [facility] Serum 10/06/2024 1:04 AM EDT 10/06/2024 1:30 AM EDT Bisi Hernandez DO LAB BLOOD ORDERABLES Final Resul t [facility] [address] [place] [id number], [facility] * Renal Function Panel, Fasting (09/16/2024 12:20 PM EDT) EGFR 31 Anion Gap 14.3 <=30 mmol/L Plasma Result [facility] Gerri Peterson MD LAB BLOOD ORDERABLES Final Resu lt * Glucose, random (09/16/2024 12:20 PM EDT) Glucose 97 60 - 200 mg/dL Plasma Result [facility] Gerri Peterson MD LAB BLOOD ORDERABLES Final Resu lt * (ABNORMAL) Hepatic function panel (09/16/2024 12:20 PM EDT) Alkaline Phosphatase 144 U/L ALT 40 U/L AST 76 U/L Total Bilirubin 19.8(A) 0.1 - 1.4 mg/dL Protein, Total 6.3 Albumin 3.4(A) 3.5 - 5.0 g/dL Blood Result [facility] Gerri Peterson MD LAB BLOOD ORDERABLES [...] EDT 09/09/2024 6:44 AM EDT Comment:F Kathie Bauer MD BODY FLUIDS AND STOOLS JULIUS DUBOSE Final Result [facility] [address] [facility]. [place] [id number], [facility] * Clostridium Difficile Toxin A/B Antigen (09/09/2024 [...] ORDERA BLES Final Result Performing Organization Address City/[facility]/ZIP Co de Phone Number [facility] [address] * Phosphorus, AM (09/05/2024 7:24 AM EDT) Only the most recent of4 resultswithin the time period is included. Phosphorus 2.1 2.1 - 4.7 mg/dL 09/05/2024 8:25 AM EDT [facility] Plasma 09/05/2024 7:24 AM EDT 09/05/2024 7:38 AM EDT us Kiet Ramirez MD LAB BLOOD ORDERABLES Denisse l Result Performing Organization Address [facility] Co de Phone Number [facility] [address] [facility]. [address] * (ABNORMAL) Basic Metabolic panel, AM (09/05/2024 7:24 AM EDT) Only the most recent of10 resultswithin the time period is included. Sodium 134 133 - 146 mmol/L 09/05/2024 8:25 AM EDT [facility] Potassium 3.6 3.5 - 5.3 mmol/L 09/05/2024 8:25 AM EDT [facility] Chloride 107 98 - 110 mmol/L 09/05/2024 8:25 AM EDT [facility] CO2 19(L) 21 - 33 mmol/L 09/05/2024 8:25 AM EDT [facility] Anion Gap 8 3 - 16 mmol/L 09/05/2024 8:25 AM EDT [facility] BUN 42(H) 7 - 25 mg/dL 09/05/2024 8:25 AM EDT [facility] Creatinine 2.92(H) 0.60 - 1.30 mg/dL 09/05/2024 8:25 AM EDT [facility] Glucose 108(H) 70 - 100 mg/dL 09/05/2024 8:25 AM EDT [facility] Calcium 8.6 8.6 - 10.3 mg/dL 09/05/2024 8:25 AM EDT [facility] Osmolality, Calculated 289 278 - 305 mOsm/kg 09/05/2024 8:25 AM EDT [facility] EGFR 27 09/05/2024 8:25 AM EDT [facility] Comment:As [...] MD LAB BLOOD ORDERABLES Denisse valle Result [facility] [address] * Fluid Creatinine (09/04/2024 11:01 AM EDT) Creat, Fluid 3.17 mg/dL 09/04/2024 6:15 PM EDT [facility] Comment:Reference range not established for this test. Abdominal Fluid ABDOMEN / Unknown 025 11:01 AM EDT 09/04/2024 5:25 PM EDT Narrative [facility] - 09/04/2024 6:15 PM EDT This assay has been modified from the directional bore operator's specifications and has been validated with performance characteristics determined by [facility] in accordance with federal regulations [...] OR DERABLES Final Result Performing Organization Address [facility]/ZIP Co de Phone Number [facility] [address] * Protein, Body fluid (09/04/2024 11:01 AM EDT) Only the most recent of3 resultswithin the time period is included. Protein, Fluid <3.0 g/dL 09/04/2024 6:15 PM EDT [facility] Comment:Reference range not established for this test. Ascitic Fluid ABDOMEN / Unknown 11:01 AM EDT 09/04/2024 5:25 PM EDT Narrative [facility] - 09/04/2024 6:15 PM EDT This assay has been modified from the directional bore operator's specifications and has been validated with performance characteristics determined by [facility] in accordance with federal regulations [...] OR DERABLES Final Result Performing Organization Address [facility] Co de Phone Number [facility] [address] * Albumin, fluid (09/04/2024 11:01 AM EDT) Only the most recent of3 resultswithin the time period is included. Albumin, Fluid <1.5 g/dL 09/04/2024 6:15 PM EDT [facility] Comment:Reference range not established for this test. Abdominal Fluid ABDOMEN / Unknown 025 11:01 AM EDT 09/04/2024 5:25 PM EDT Narrative [facility] - 09/04/2024 6:15 PM EDT This assay has been modified from the directional bore operator's specifications and has been validated with performance characteristics determined by [facility] in accordance with federal regulations [...] OR DERABLES Final Result Performing Organization Address City/[facility]/ZIP Co de Phone Number [facility] [address] * Lipase (09/04/2024 5:22 AM EDT) Only the most recent of3 resultswithin the time period is included. Lipase 40 4 - 82 U/L 09/04/2024 11:41 AM EDT [facility] Plasma 09/04/2024 5:22 AM EDT 09/04/2024 11:23 AM EDT Kiet Ramirez MD LAB BLOOD ORDERABLES Denisse l Result Performing Organization Address City/[facility]/ZIP Co de Phone Number [facility] [address] [facility]. [address] * MRSA/Staph aureus DNA ??? Diagnostic testing for pneumonia (09/03/2024 3:21 PM EDT) MRSA, PCR Negative Negative 09/03/2024 7:48 PM EDT [facility] Staph Aureus, PCR Negative Negative 09/03/2024 7:48 PM EDT [facility] Comment:Test method is a FDA approved amplified DNA assay. Nares Swab BOTH ANTERIOR NARES / Unknown 09/03/2024 3:21 PM EDT 09/03/2024 4:25 PM EDT Narrative [facility] - 09/03/2024 7:48 PM EDT Diagnosis of MRSA Pneumonia->Yes - Place [id number] (this order) Kiet Ramirez MD MICROBIOLOGY - GENERAL OR DERABLES Final Result [facility] [address] [place] [address], [facility] * (ABNORMAL) Urine Drug Screen without Confirmation, STAT (09/03/2024 3:21 PM EDT) Amphetamine, 500 ng/mL Cutoff Negative Negative 09/03/2024 4:17 PM EDT [facility] Barbiturates UR, 300 ng/mL Cutoff Negative Negative 09/03/2024 4:17 PM EDT [facility] Buprenorphine, 5 ng/mL Cutoff Negative Negative 09/03/2024 4:17 PM EDT [facility] Benzodiazepines UR, 300 ng/mL Cutoff Negative Negative 09/03/2024 4:17 PM EDT [facility] Cocaine UR, 300 ng/mL Cutoff Negative Negative 09/03/2024 4:17 PM EDT [facility] Methadone, UR, 300 ng/mL Cutoff Negative Negative 09/03/2024 4:17 PM EDT [facility] Opiates UR, 300 ng/mL Cutoff Presumptive Positive(A) Negative 09/03/2024 4:17 PM EDT [facility] Oxycodone, 100 ng/mL Cutoff Negative Negative 09/03/2024 4:17 PM EDT [facility] Tricyclic Antidepressants, 300 ng/mL Cutoff Negative Negative 09/03/2024 4:17 PM EDT [facility] Comment:This test has been d eveloped and its performance characteristics determined by [facility] which is certified under the [...] Cutoff Negative Negative 09/03/2024 4:17 PM EDT [facility] Comment:This is a screening method only and may be associated with false positive and/or false negative results. Results are not definitive without additional confirmatory testing by mass spectrometry. Fentanyl, 2 ng/mL Cutoff Negative Negative 09/03/2024 4:17 PM EDT [facility] Comment:This test has been d eveloped and its performance characteristics determined by [facility] which is certified under the [...] ORDERABLES Final Re sult Performing Organization Address [facility] Co de Phone Number [address] * Urea Nitrogen, Urine (09/03/2024 3:21 PM EDT) Urea Nitrogen, Ur 350 mg/dL 09/03/2024 4:12 PM EDT [facility] Comment:Reference range not established for this test. Urine 09/03/2024 3:21 PM EDT 09/03/2024 3:30 PM EDT Kiet Ramirez MD URINE ORDERABLES Final Re sult Performing Organization Address [facility] Co de Phone Number [facility] [address] [place] [address] * Hepatitis B Core IgM (09/03/2024 1:43 PM EDT) Hep B Core IgM Nonreactive Nonreactive 09/03/2024 3:50 PM EDT [facility] Serum 09/03/2024 1:43 PM EDT 09/03/2024 2:17 PM EDT Narrative [facility] - 09/03/2024 3:50 PM EDT The result will be immediately released to [facility] when marked final. Do you believe the result release to [facility] should be delayed based on either the Preventing Harm or Privacy exceptions of the Cures Rule?->No IgM anti-HBc not detected. Does not exclude the possibility of exposure to or infection with HBV. Kiet Ramirez MD LAB BLOOD ORDERABLES Denisse l Result Performing Organization Address [facility] Co de Phone Number [facility] [address] [facility] * T4, Free (09/03/2024 1:43 PM EDT) Free T4 0.74 0.61 - 1.76 ng/dL 09/03/2024 6:34 PM EDT [facility] Comment:Biotin megadosing (c onsumption >300 mcg/day) may falsely elevate free T4. When indicated, discontinue megadosing for 1 week and repeat testing. Serum 09/03/2024 1:43 PM EDT 09/03/2024 2:17 PM EDT Kiet Ramirez MD LAB BLOOD ORDERABLES Denisse l Result Performing Organization Address [facility] de Phone Number [facility] [address] [facility] * (ABNORMAL) Urinalysis, Microscopic (09/03/2024 10:28 AM EDT) RBC, UA 1 0 - 3 /HPF 09/03/2024 11:51 AM EDT [facility] WBC, UA 1 0 - 5 /HPF 09/03/2024 11:51 AM EDT [facility] Squam Epithel, UA <1 0 - 5 /HPF 09/03/2024 11:51 AM EDT [facility] [facility] Bacteria, UA Occasional (A) None Seen /HPF 09/03/2024 11:51 AM EDT [facility] Mucus, UA Present(A) None Seen /HPF 09/03/2024 11:51 AM EDT [facility] Urine 09/03/2024 10:2 8 AM EDT 09/03/2024 11:24 AM EDT us Kiet Ramirez MD URINE ORDERABLES Final Re sult [facility] [address] [place] [address], [facility] * (ABNORMAL) Urinalysis-Macroscopic w/Rfx to Microsco (09/03/2024 10:28 AM EDT) Color, UA Yellow Yellow,Straw 09/03/2024 11:51 AM EDT [facility] Clarity, UA Cloudy(A) Clear 09/03/2024 11:51 AM EDT [facility] Specific [place], UA >1.035(H) 1.005 - 1.035 09/03/2024 11:51 AM EDT [facility] pH, UA 6.5 5.0 - 8.0 09/03/2024 11:51 AM EDT [facility] Protein, UA Trace(A) Negative mg/dL 09/03/2024 11:51 AM EDT [facility] Glucose, UA Negative Negative mg/dL 09/03/2024 11:51 AM EDT [facility] Ketones, UA Negative Negative mg/dL 09/03/2024 11:51 AM EDT [facility] Bilirubin, UA Small(A) Negative 09/03/2024 11:51 AM EDT [facility] Blood, UA Negative Negative 09/03/2024 11:51 AM EDT [facility] Nitrite, UA Negative Negative 09/03/2024 11:51 AM EDT [facility] Urobilinogen, UA <2.0 0.2 - 1.9 mg/dL 09/03/2024 11:51 AM EDT [facility] Leukocyte Esterase, UA Negative Negative 09/03/2024 11:51 AM EDT [facility] Urine 09/03/2024 10:2 8 AM EDT 09/03/2024 10:55 AM EDT Kiet Ramirez MD URINE ORDERABLES Final Re sult Performing Organization Address [facility] Co de Phone Number [facility] [address] [place] [facility]. [address] * Lactic acid, venous (09/03/2024 7:55 AM EDT) Lactate, Shakeel 1.8 0.5 - 2.2 mmol/L 09/03/2024 8:02 AM EDT [facility] Whole Blood VENOUS STRUCTURE / Unknown 09/03/2024 7:55 AM EDT 09/03/2024 7:59 AM EDT us Jarrod Alas MD LAB BLOOD ORDERABLES Final Res ult Performing Organization Address [facility] Co de Phone Number [facility] [address] * High Sensitivity Troponin (60min) (09/03/2024 7:18 AM EDT) Only the most recent of2 resultswithin the time period is included. Pathologist [facility] High Sensitivity Troponin 14 0 - 20 ng/L 09/03/2024 7:49 AM EDT [facility] Serum 09/03/2024 7:18 AM EDT 09/03/2024 7:18 AM EDT Narrative [facility] - 09/03/2024 7:49 AM EDT Please draw 60min after time that first troponin is drawn. us Rommel Garland MD LAB BLOOD ORDERABLES Final Resul t Performing Organization Address [facility] Co de Phone Number [facility] [address] [facility]. [address] * Paracentesis (09/03/2024 7:01 AM EDT) [...] infection and pain Alternatives discussed: No treatment [place] protocol: Procedure explained and questions answered to [...] QT: 456 ms QTc: 557 ms P Steward: 76 degrees R Steward: -37 degrees T Steward: 16 degrees Diagnosis Line: INTERPRETATION NOT AVAILABLE--ECG READ IN ER ^ Reconfirmed by PHYSICIAN, ER ([id number]), market editor Tonya BUTLER ([id number]) on 09/03/2024 8:00:24 [...] 08/14/2024 2:17 PM EDT us Mak Armenta GROUND OPERATIONS SUPERINTENDENT IMG DIAGNOSTIC IMAGING O RDERABLES Final Result [...] and bowel perforation Alternatives discussed: No treatment [place] protocol: Procedure explained and questions answered to [...] Fluid 18 mg/dL 08/14/2024 1:58 PM EDT [facility] Comment:Reference range not established for this test. Fluid ABDOMEN / Unknown 08/14/2024 12:31 PM EDT 08/14/2024 1:31 PM EDT Narrative [facility] - 08/14/2024 1:58 PM EDT This assay has been modified from the directional bore operator's specifications and has been validated with performance characteristics determined by [facility] in accordance with federal regulations under the Clinical Laboratory Act Amendment of 1987. The modification has not been approved by the FDA which has determined that such approval is not necessary. The test is for clinical purposes and should not be regarded as investigational or for research use. Dex Jackman MD BODY FLUIDS AND STOOLS ORDERABL ES Final Result [facility] [address] * Amylase, Body fluid (08/14/2024 12:31 PM EDT) Amylase, Fluid 20 U/L 08/14/2024 2:00 PM EDT [facility] Comment:Reference range not established for this test. Abdominal Fluid ABDOMEN / Unknown 025 12:31 PM EDT 08/14/2024 1:31 PM EDT Narrative [facility] - 08/14/2024 2:00 PM EDT This assay has been modified from the directional bore operator's specifications and has been validated with performance characteristics determined by [facility] in accordance with federal regulations under the Clinical Laboratory Act Amendment of 1987. The modification has not been approved by the FDA which has determined that such approval is not necessary. The test is for clinical purposes and should not be regarded as investigational or for research use. Dex Jackman MD BODY FLUIDS AND STOOLS ORDERABL ES Final Result [facility] [address] [place] [address] * Cytology, Peritoneal Fluid (08/14/2024 12:00 AM EDT) Peritoneal Fluid 08/14/2024 08/15/19 25 Narrative [facility] - 08/14/2024 12:00 AM EDT CASE: [id number] PATIENT: BLAIR ANDERSON Clinical History: 39M with decompensated EtOH cirrhosis Clinical Diagnosis: 39M with decompensated EtOH cirrhosis Specimen Source: A. Peritoneal Fluid Gross Description: Received 25ml Yellow Fluid CPT Code(s): 19084 X 1 Additional Information: DIAGNOSIS: Peritoneal Fluid (ThinPrep only): NO MALIGNANT CELLS IDENTIFIED INFLAMMATION: Mild acute and chronic inflammation Initial Evaluation performed by Jess CHAMBERS(ASCP) Shake Splitter Electronically signed 08/15/2024 11:12:00 AM The Diagnostician signing this report is located at [facility], [address] [place] [address], [facility] [phone], CLIA ID: [id number] Final Diagnosis performed by RORO HOLLIS MD, PhD Pathologist Electronically signed 08/15/2024 11:27:00 AM The Pathologist signing this report is located at [facility], [address] [place] [address], [facility], , CLIA ID: [id number] Dex Jackman MD PATHOLOGY/CYTOLOGY ORDERABLES F inal Result [facility] from Last 3 Months Additional Health Concerns 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, VRE- urine 10/31/2024 06/2 08/2024 Insurance [facility] GLOBAL [employer] [facility] [facility] [employer] [employer] TRANSPLANT GLOBAL Member Subscriber Plan / Payer (Ef fective 2024-Present) Name:Blair Anderson Relation to Subscriber:Self Name:Blair Anderson Payer ID:[id number] Group ID:Not on file Type:Transplant Address: [facility] [place] [address] Advance Directives For more information, please contact: [phone] * Full Code (Latest Code Status on [...] 9:55 PM 08/19/2024 4:56 PM Care Teams Sales And Marketing Engineer Relationship Specialty Start Date End Date Enedina Mcguire NP [address] [place] [address] PCP - General Internal Medicine 10/05/24 Maureen Pantoja, RN Txp Post Coordinator Transplant Hepatology 10/28/24
--- OUTSIDE RECORDS SUMMARY | 2024-11-13 08:55 | XMS_ITS | Encounter Summary ---
Author Organization [facility] Address [address] [place] [address] Care Team Providers Care Engineering Lecturer Name Role Phone Enedina Mcguire NP Primary Care Provider [phone] Source Comments This information has been disclosed [...] release of HIV test results or diagnoses. [id number] Health Encounter Details Date Type Department Care Team (Late st Contact Info) Description 10/14/2024 Chart Note [facility] Kidney Transplant at [address] [place] [phone] Dean Robles [facility] [address] Social History Tobacco Use Types Packs/Day Years Used Date Smoking Tobacco: Former Cigarettes Smokeless Tobacco: Current Alcohol Use Standard Drinks/Week Comments Yes 0 (1 standard drink = 0.6 oz pure alcohol) History of alcohol abuse, reports no use in 3 week- typically endorses use as 4 glasses of wine a days Utilities Answer Date Recorded In the past 12 months has [employer], [employer], oil, or water [employer] threatened to shut [...] Guillen 10/14/2024 9:49 AM EDT Dean berman [facility] [address] Case opened TAYLOR Almeida ph [phone] Liver requested urgent review for slk Approved by [facility] letter to files documented in this encounter Plan of Treatment Upcoming Encounters Date Type Department Care Team (Late st Contact Info) Description 12/05/2024 8:01 AM EDT Hospital Encounter [facility] ENDOSCOPY [address] [place] [phone] Chris Orosco MD [address] [place] [phone] 12/05/2024 8:01 AM EDT - 12/05/2024 8:31 AM EDT Surgery [facility] ENDOSCOPY [address] [place] [phone] Chris Orosco MD [address] [place] [phone] EGD Scheduled Procedures Name Priority Associated Diagnoses [...] documented as of this encounter Care Teams Engineering Lecturer Relationship Specialty Start Date End Date Enedina Mcguire NP [address] [place] [address] PCP - General Internal Medicine 10/05/24 documented as of this encounter
--- OUTSIDE RECORDS SUMMARY | 2024-11-13 08:57 | XMS_ITS | Encounter Summary ---
Author Organization [facility] Address [address] [place] [address] Care Team Providers Care Web Development Intern Name Role Phone Unavailable Primary Care Provider [...] release of HIV test results or diagnoses. [id number] Health Encounter Details Date Type Department Care Team (Late st Contact Info) Description 09/30/2024 Social Work [facility] Liver Transplant at [address] [phone] Kaylin Willard MSW Social History Tobacco Use [...] Recorded In the past 12 months has [employer], gas, oil, or water company threatened to [...] Liver Transplant Patient has been referred to [facility] for liver transplant evaluation. Patient was evaluated by transplant social problems specialist on 09/25/2024 and it was determined that patient will need to complete 12 weeks of CD treatment. Patient is engaged in CD treatment with: [facility] Mary Marie [phone] Patient has been attending an IOP program [...] treatment for him. Thank you NUBIA Barros, [facility] documented in this encounter Plan of Treatment Upcoming Encounters Date Type Department Care Team (Late st Contact Info) Description 12/05/2024 8:01 AM EDT Hospital Encounter [facility] ENDOSCOPY [address] [place] [phone] Chris Orosco MD [address] [place] [phone] 12/05/2024 8:01 AM EDT - 12/05/2024 8:31 AM EDT Surgery [facility] ENDOSCOPY [address] [place] [phone] Chris Orosco MD [address] [place] [phone] EGD Scheduled Procedures Name Priority Associated Diagnoses Date/Ti me EGD Cirrhosis of liver with ascites, unspecified hepatic cirrhosis type ([facility]) 12/05/2024 8:01 AM EDT documented as of this encounter Visit Diagnoses Not on filedocumented in this encounter Additional Health Concerns Infection Onset Date Last Indicated Resolved Time C. difficile 09/09/2024 09/09/2024 10/27/2024 8:30 AM EDT Assessment Noted Time PHQ-9 Depression Total Score: 17 025 11:00 AM EDT documented as of this encounter
--- OUTSIDE RECORDS SUMMARY | 2024-11-13 08:57 | XMS_ITS | Encounter Summary ---
Author Organization [facility] Address [address] [place] [address] Care Team Providers Care Hook Puller Name Role Phone Enedina Mcguire NP Primary Care Provider [phone] Source Comments This information has been disclosed [...] release of HIV test results or diagnoses. [id number] Health Encounter Details Date Type Department Care Team (Late st Contact Info) Description 10/07/2024 Chart Note [facility] Kidney Transplant at [address] [phone] Anny Cote RN Simultaneous Liver-Kidney Transplant Referral [...] Recorded In the past 12 months has [employer], gas, oil, or water [employer] threatened to shut off services in your [...] Financial Clearance is pending sent to financial institution branch manager [x] HLA testing to be ordered once [...] Dialysis Unit: (Not currently on dialysis) Outside crusher plant operator: Dr. Curran, Yovanny Nicholson MD Routed to kidney referral intake team. documented in this encounter Plan of Treatment Upcoming Encounters Date Type Department Care Team (Late st Contact Info) Description 12/05/2024 8:01 AM EDT Hospital Encounter [facility] ENDOSCOPY [address] [place] [phone] Chris Orosco MD [address] [place] [phone] 12/05/2024 8:01 AM EDT - 12/05/2024 8:31 AM EDT Surgery [facility] ENDOSCOPY [address] [place] [phone] Chris Orosco MD [address] [place] [phone] EGD Scheduled Procedures Name Priority Associated Diagnoses Date/Ti me EGD Cirrhosis of liver with ascites, unspecified hepatic cirrhosis type ([facility]) 12/05/2024 8:01 AM EDT documented [...] documented as of this encounter Care Teams Hook Puller Relationship Specialty Start Date End Date Enedina Mcguire NP [address] [place] [address] PCP - General Internal Medicine 10/05/24 documented as of this encounter
--- OUTSIDE RECORDS SUMMARY | 2024-11-13 08:57 | XMS_ITS | Encounter Summary ---
Author Organization [facility] Address [address] [place] [address] Care Team Providers Care Supervisor Concrete Block Plant Name Role Phone Enedina Mcguire NP Primary Care Provider [phone] Source Comments This information has been disclosed [...] release of HIV test results or diagnoses. [id number] Encounter Details Date Type Department Care Team (Late st Contact Info) Description 10/09/2024 Social Work [facility] Liver Transplant at [address] [phone] Kaylin Willard MSW Social History Tobacco Use [...] Recorded In the past 12 months has [employer], gas, oil, or water [employer] threatened to shut off services in [...] Liver Transplant Patient has been referred to [facility] for liver transplant evaluation. Patient was evaluated by transplant social media developer on 09/25/2024 and it was determined that patient will need to complete 12 weeks of CD treatment. Patient is engaged in CD treatment with: [facility] [phone] SW met with patient and spouse at [...] during hospitalization pending mental status. NUBIA Barros, QUALITY ASSURANCE ADVISOR documented in this encounter Plan of Treatment Upcoming Encounters Date Type Department Care Team (Late st Contact Info) Description 12/05/2024 8:01 AM EDT Hospital Encounter [facility] ENDOSCOPY [address] [place] [phone] Chris Orosco MD [address] [place] [phone] 12/05/2024 8:01 AM EDT - 12/05/2024 8:31 AM EDT Surgery [facility] ENDOSCOPY [address] [place] [phone] Chris Orosco MD [address] [place] [phone] EGD Scheduled Procedures Name Priority Associated Diagnoses [...] as of this encounter Care Teams Supervisor Concrete Block Plant Relationship Specialty Start Date End Date Enedina Mcguire NP [address] [place] [address] PCP - General Internal Medicine 10/05/24 documented as of this encounter
--- OUTSIDE RECORDS SUMMARY | 2024-11-13 08:57 | XMS_ITS | Encounter Summary ---
Author Organization [facility] Address [address] [place] [address] Care Team Providers Care Nail Making Machine Tender Name Role Phone Enedina Mcguire NP Primary Care Provider [phone] Source Comments This information has been disclosed [...] release of HIV test results or diagnoses. [id number] Health Encounter Details Date Type Department Care Team (Late st Contact Info) Description 10/09/2024 Chart Note [facility] Kidney Transplant at [address] [place] [phone] Dean Robles [facility] [address] Social History Tobacco Use Types Packs/Day Years Used Date Smoking Tobacco: Former Cigarettes Smokeless Tobacco: Current Alcohol Use Standard Drinks/Week Comments Yes 0 (1 standard drink = 0.6 oz pure alcohol) History of alcohol abuse, reports no use in 3 week- typically endorses use as 4 glasses of wine a days Utilities Answer Date Recorded In the past 12 months has [employer], [employer], oil, or water [employer] threatened to shut off services in your [...] Guillen 10/09/2024 10:37 AM EDT Dean berman [facility] [address] Called Cammie Wing [phone] Advised of brandon martínez she was aware Assigning a cm to call me Requested all clinical Advised this is now a SLK Pending cm call back documented in this encounter Plan of Treatment Upcoming Encounters Date Type Department Care Team (Late st Contact Info) Description 12/05/2024 8:01 AM EDT Hospital Encounter [facility] ENDOSCOPY [address] [place] [phone] Chris Orosco MD [address] [place] [phone] 12/05/2024 8:01 AM EDT - 12/05/2024 8:31 AM EDT Surgery [facility] ENDOSCOPY [address] [place] [phone] Chris Orosco MD [address] [place] [phone] EGD Scheduled Procedures Name Priority Associated Diagnoses [...] as of this encounter Care Teams Nail Making Machine Tender Relationship Specialty Start Date End Date Enedina Mcguire NP [address] [place] [address] PCP - General Internal Medicine 10/05/24 documented as of this encounter
--- OUTSIDE RECORDS SUMMARY | 2024-11-13 08:57 | XMS_ITS | Encounter Summary ---
Author Organization [facility] Address [address] [place] [address] Care Team Providers Care Shoe Repairman Name Role Phone Enedina Mcguire NP Primary Care Provider [phone] Source Comments This information has been disclosed [...] release of HIV test results or diagnoses. [id number] Encounter Details Date Type Department Care Team (Late st Contact Info) Description 10/07/2024 Chart Note [facility] Kidney Transplant at [address] [place] [phone] Chey Nicole MA This MA received new [...] In the past 12 months has [employer], gas, oil, or water [employer] threatened to shut off services in your [...] PT. Will FU once financially cleared. An XOJET fax was sent to [facility] and or referring office to notify of referral acceptance. documented in this encounter Plan of Treatment Upcoming Encounters Date Type Department Care Team (Late st Contact Info) Description 12/05/2024 8:01 AM EDT Hospital Encounter [facility] ENDOSCOPY [address] [place] [phone] Chris Orosco MD [address] [place] [phone] 12/05/2024 8:01 AM EDT - 12/05/2024 8:31 AM EDT Surgery [facility] ENDOSCOPY [address] [place] [phone] Chris Orosco MD [address] [place] [phone] EGD Scheduled Procedures Name Priority Associated Diagnoses Date/Ti me EGD Cirrhosis of liver with ascites, unspecified hepatic cirrhosis type ([facility]) 12/05/2024 8:01 AM EDT documented as [...] as of this encounter Care Teams Shoe Repairman Relationship Specialty Start Date End Date Enedina Mcguire NP [address] [place] [address] PCP - General Internal Medicine 10/05/24 documented as of this encounter
--- OUTSIDE RECORDS SUMMARY | 2024-11-13 08:57 | XMS_ITS | Encounter Summary ---
Author Organization [facility] Address [address] [place] [address] Care Team Providers Care Site Project Manager Name Role Phone Unavailable Primary [...] release of HIV test results or diagnoses. [id number] Health Encounter Details Date Type Department Care Team (Late st Contact Info) Description 09/25/2024 Orders Only [facility] Liver Transplant at [address] [phone] Mary Butler, RN Pre-transplant evaluation for chronic [...] Recorded In the past 12 months has [employer], gas, oil, or water [employer] threatened to shut off services in your [...] [facility] ENDOSCOPY [address] [place] [phone] Chris Orosco MD [address] [place] [phone] 12/05/2024 8:01 AM EDT - 12/05/2024 8:31 AM EDT Surgery [facility] ENDOSCOPY [address] [place] [phone] Chris Orosco MD [address] [place] [phone] EGD Scheduled Procedures Name Priority Associated Diagnoses Date/Ti me EGD Cirrhosis of liver with ascites, unspecified hepatic cirrhosis type ([facility]) 12/05/2024 8:01 AM EDT documented as of this encounter Results * Urine Drug Comprehensive Panel, Confirmation (09/25/2024 11:55 AM EDT) BARBITURATES NOT PRESENT 09/29/2024 12:39 PM EDT [facility] BENZODIAZEPINES NOT PRESENT 09/30/19 12:39 PM EDT [facility] CANNABINOIDS NOT PRESENT 09/29/2024 12:39 PM EDT [facility] AUTOMOBILE LEASING SUPERVISOR STIMULANTS NOT PRESENT 12:39 PM EDT [facility] [...] Ur 122.10 mg/dL 09/26/2024 11:30 AM EDT [facility] Comment:Reference range not established for this test. pH 5.8 4.7 - 7.8 09/26/2024 11:30 AM EDT [facility] Specific [place] 1.010 1.003 - 1.035 09/26/2024 11:30 AM EDT [facility] Urine 09/25/2024 11:5 5 AM EDT 09/25/2024 12:19 PM EDT Narrative [facility] - 09/29/2024 12:39 PM EDT This test has been developed and its performance characteristics determined by [facility] which is certified under [...] Chinedu Sidhu MD URINE ORDERABLES Final Result [facility] [address] * Phosphatidylethanol Confirmation, B (09/25/2024 11:55 AM EDT) PETH 16:0/18.1 (POPETH) <10 Cutoff: 10 ng/mL 09/29/2024 12:24 PM EDT [facility] Comment: Phosphatidylethanol (PEth) homologues result [...] Cutoff: 10 ng/mL 09/29/2024 12:24 PM EDT [facility] Comment: PEth 16:0/18:2 (PLPEth) Reference ranges are not well established PEth Interpretation Negative. 09/29 12:24 PM EDT [facility] Comment: ADDITIONAL INFORMATION This report is intended for use in clinical monitoring and management of patients. It is not intended for use in employment-related testing. This test was developed and its performance characteristics determined by [facility] in a manner consistent with CLIA requirements. This test has not been cleared or approved by the U.S. Food and Drug Administration. Test Performed by: [facility] [place] [address] Payment Processor: Kathy Ortiz Ph.D.; CLIA# [id number] Whole Blood 09/25/2024 11:5 5 AM EDT 09/29/2024 12:24 PM EDT Chinedu Sidhu MD LAB BLOOD ORDERABLES Final Re sult [facility] [address] documented in this encounter Visit Diagnoses [...]
--- OUTSIDE RECORDS SUMMARY | 2024-11-13 08:57 | XMS_ITS | Encounter Summary ---
Author Organization [facility] Address [address] [place] [address] Care Team Providers Care Deboner Name Role Phone Enedina Mcguire NP Primary Care Provider [phone] Source Comments This information has been disclosed [...] release of HIV test results or diagnoses. [id number] Health Encounter Details Date Type Department Care Team (Late st Contact Info) Description 10/07/2024 Chart Note [facility] Liver Transplant at [address] [place] [phone] Alexandro Sams, RN Spoke with Julien Anderson [...] Recorded In the past 12 months has [employer], gas, oil, or water [employer] threatened to shut off services in your [...] Hospital Encounter [facility] ENDOSCOPY [address] [place] [address] Chris Orosco MD [address] [place] [phone] 12/05/2024 8:01 AM EDT - 12/05/2024 8:31 AM EDT Surgery [facility] ENDOSCOPY [address] [place] [address] Chris Orosco MD [address] [place] [phone] EGD Scheduled Procedures Name Priority Associated [...] documented as of this encounter Care Teams Deboner Relationship Specialty Start Date End Date Enedina Mcguire NP [address] [place] [address] PCP - General Internal Medicine 10/05/24 documented as of this encounter
--- OUTSIDE RECORDS SUMMARY | 2024-11-13 08:57 | XMS_ITS | Encounter Summary ---
Author Organization [facility] Address [address] [place] [address] Care Team Providers Care Asset Protection Officer Name Role Phone Enedina Mcguire NP Primary Care Provider [phone] Source Comments This information has been disclosed [...] release of HIV test results or diagnoses. [id number] Health Encounter Details Date Type Department Care [...] Recorded In the past 12 months has [employer], oil, or water [employer] threatened to shut off services in your [...] Description 12/05/2024 8:01 AM EDT Hospital Encounter [facility] ENDOSCOPY [address] [place] [address] Chris Orosco MD [address] [place] [phone] 12/05/2024 8:01 AM EDT - 12/05/2024 8:31 AM EDT Surgery [facility] ENDOSCOPY [address] [place] [address] Chris Orosco MD [address] [place] [phone] EGD Scheduled Procedures Name Priority Associated Diagnoses Date/Ti me EGD Cirrhosis of liver with ascites, unspecified hepatic cirrhosis type ([facility]) 12/05/2024 8:01 AM EDT documented [...] documented as of this encounter Care Teams Asset Protection Officer Relationship Specialty Start Date End Date Enedina Mcguire NP [address] [place] [address] PCP - General Internal Medicine 10/05/24 documented as of this encounter
--- OUTSIDE RECORDS SUMMARY | 2024-11-13 08:57 | XMS_ITS | Encounter Summary ---
Author Organization [facility] Address [address] [place] [address] Care Team Providers Care Technical Professional Name Role Phone Enedina Mcguire NP Primary Care Provider [phone] Source Comments This information has been disclosed [...] release of HIV test results or diagnoses. [id number] Health Encounter Details Date Type Department Care Team (Late st Contact Info) Description 10/09/2024 Chart Note [facility] Kidney Transplant at [address] [place] [phone] Dean Robles [facility] [phone] call from Elle [facility] fx [phone] Social History Tobacco Use Types Packs/Day Years Used Date Smoking Tobacco: Former Cigarettes Smokeless Tobacco: Current Alcohol Use Standard Drinks/Week Comments Yes 0 (1 standard drink = 0.6 oz pure alcohol) History of alcohol abuse, reports no use in 3 week- typically endorses use as 4 glasses of wine a days Utilities Answer Date Recorded In the past 12 months has [employer], gas, oil, or water company threatened to [...] 11:57 AM EDT Dean berman [facility] [phone] call from Elle the R fx [phone] Set her all clinical Rquesting a urgent review for liver txp UMR/optum case opened 10/05/24 Pends response documented in this encounter Plan of Treatment Upcoming Encounters Date Type Department Care Team (Late st Contact Info) Description 12/05/2024 8:01 AM EDT Hospital Encounter [facility] ENDOSCOPY [address] [place] [phone] Chris Orosco MD [address] [place] [phone] 12/05/2024 8:01 AM EDT - 12/05/2024 8:31 AM EDT Surgery [facility] ENDOSCOPY [address] [place] [address] Chris Orosco MD [address] [place] [phone] EGD Scheduled Procedures Name Priority Associated Diagnoses [...] as of this encounter Care Teams Technical Professional Relationship Specialty Start Date End Date Enedina Mcguire NP [address] [place] [address] PCP - General Internal Medicine 10/05/24 documented as of this encounter
--- OUTSIDE RECORDS SUMMARY | 2024-11-13 08:57 | XMS_ITS | Encounter Summary ---
Author Organization [facility] Address [address] [place] [address] Care Team Providers Care Hog Killer Name Role Phone Unavailable Primary Care Provider [...] release of HIV test results or diagnoses. [id number] Health Encounter Details Date Type Department Care Team (Late st Contact Info) Description 09/26/2024 Abstract [facility] G[facility]ology [facility] [address] [place] [phone] Gerri Peterson MD [address] [place] [address] Social History Tobacco Use Types Packs/Day Years Used Date Smoking Tobacco: Former Cigarettes Smokeless Tobacco: Current Alcohol Use Standard Drinks/Week Comments Yes 0 (1 standard drink = 0.6 oz pure alcohol) History of alcohol abuse, reports no use in 3 week- typically endorses use as 4 glasses of wine a days Utilities Answer Date Recorded In the past 12 months has [facility] [employer], gas, oil, or water [employer] threatened to shut off services in your [...] Encounter [facility] ENDOSCOPY [address] [place] [address] Chris Orosco MD [address] [place] [phone] 12/05/2024 8:01 AM EDT - 12/05/2024 8:31 AM EDT Surgery [facility] ENDOSCOPY [address] [facility] [place] [address] Chris Orosco MD [address] [place] [phone] EGD Scheduled Procedures Name Priority Associated Diagnoses Date/Ti me EGD Cirrhosis of liver with ascites, unspecified hepatic cirrhosis type ([facility]) 12/05/2024 8:01 AM EDT documented as of this encounter Visit Diagnoses Not on filedocumented in this encounter Additional Health Concerns Infection Onset Date Last Indicated Resolved Time C. difficile 09/09/2024 09/09/2024 10/27/2024 8:30 AM EDT Assessment Noted Time PHQ-9 Depression Total Score: 16 025 11:00 AM EDT documented as of this encounter
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
--- OUTSIDE RECORDS SUMMARY | 2024-11-13 08:57 | XMS_ITS | Encounter Summary ---
Author Organization [facility] Address [facility] [place] [address] Care Team Providers Care Loop Cutter Name Role Phone Enedina Mcguire NP Primary Care Provider [phone] Source Comments This information has been disclosed [...] release of HIV test results or diagnoses. [id number] Reason for Visit * Reason Comments After Hours Call Encounter Details Date Type Department Care Team ([facility] Contact Info) Description 10/05/2024 Telephone [facility] PATIENT SERVICES [address] [place] [address] Unknown, Attending Provider After Hours [...] Recorded In the past 12 months has [employer], gas, oil, or water [employer] threatened to shut off services in [...] local ER w/ plans to transfer to [facility] if higher level of care required. Will notify outpatient liver provider. [facility] PGY6 * Telephone Encounter - Madina Elliott - 10/05/2024 10:[address] RETANA SHE WILL CALL PT DIRECTLY. COMPLETE * Telephone Encounter - Madina Elliott - 10/05/2024 10:19 AM EDT Specialty: GASTRO MAB Patient Name: Julien Anderson Patient Date of : 1985 Relationship of Caller to Patient and Callback: [phone] Patient of: DR. LINARES Nature of Call: STATES PT IS SHOWING SIGNS OF CONFUSION. PLEASE ADVISE. Publishing Agent Provider Contacted: DR. RETANA Time and Method [...] 12/05/2024 8:01 AM EDT Hospital Encounter [facility] ENDOSCOPY [address] [place] [address] Chris Orosco MD [address] [place] [phone] 12/05/2024 8:01 AM EDT - 12/05/2024 8:31 AM EDT Surgery [facility] ENDOSCOPY [address] [place] [address] Chris Orosco MD [address] [place] [phone] EGD Scheduled Procedures Name Priority Associated Diagnoses [...] documented as of this encounter Care Teams Loop Cutter Relationship Specialty Start Date End Date Enedina Mcguire NP [address] [place] [address] PCP - General Internal Medicine 10/05/24 documented as of this encounter
--- OUTSIDE RECORDS SUMMARY | 2024-11-13 08:57 | XMS_ITS | Encounter Summary ---
Author Organization [facility] Address [address] [place] [address] Care Team Providers Care Combination Welder Name Role Phone Unavailable Primary Care Provider [...] release of HIV test results or diagnoses. [id number] Health Encounter Details Date Type Department Care Team (Late st Contact Info) Description 09/24/2024 Orders Only [facility] G[facility]enterology at [facility] [address] [place] [address] Gerri Peterson MD [address] [place] [address] Cirrhosis of liver with ascites, [...] Recorded In the past 12 months has [employer], gas, oil, or water company threatened [...] EDT Hospital Encounter [facility] ENDOSCOPY [address] [place] [address] Chris Orosco MD [address] [place] [phone] 12/05/2024 8:01 AM EDT - 12/05/2024 8:31 AM EDT Surgery [facility] ENDOSCOPY [address] [place] [address] Chris Orosco MD [address] [place] [address] EGD Scheduled Procedures Name Priority Associated Diagnoses [...]
--- OUTSIDE RECORDS SUMMARY | 2024-11-13 08:57 | XMS_ITS | Encounter Summary ---
Author Organization [facility] Address [address] [place] [address] Care Team Providers Care Rn Pediatric Icu Name Role Phone Unavailable Primary Care Provider [...] release of HIV test results or diagnoses. [id number] Health Encounter Details Date Type Department Care Team (Late st Contact Info) Description 10/01/2024 Telephone [facility] Liver Transplant at [address] [address] Armand Salinas, RN Social History Tobacco Use [...] Recorded In the past 12 months has [employer], gas, oil, or water company threatened to [...] Hospital Encounter [facility] ENDOSCOPY [address] [place] [address] Chris Orosco MD [address] [place] [phone] 12/05/2024 8:01 AM EDT - 12/05/2024 8:31 AM EDT Surgery [facility] ENDOSCOPY [address] [place] [address] Chris Orosco MD [address] [place] [phone] EGD Scheduled Procedures Name Priority Associated Diagnoses Date/Ti me EGD Cirrhosis of liver with ascites, unspecified hepatic cirrhosis type ([facility]) 12/05/2024 8:01 AM EDT documented as of this encounter Visit Diagnoses Not on filedocumented in this encounter Additional Health Concerns Infection Onset Date Last Indicated Resolved Time C. difficile 09/09/2024 09/09/2024 10/27/2024 8:30 AM EDT Assessment Noted Time PHQ-9 Depression Total Score: 17 025 11:00 AM EDT documented as of this encounter
--- OUTSIDE RECORDS SUMMARY | 2024-11-13 08:57 | XMS_ITS | Encounter Summary ---
Author Organization [facility] Address [address] [place] [address] Care Team Providers Care Acetylene Cylinder Packing Mixer Name Role Phone Enedina Mcguire NP Primary Care Provider [phone] Source Comments This information has been disclosed [...] release of HIV test results or diagnoses. [id number] Health Encounter Details Date Type Department Care Team (Late st Contact Info) Description 10/07/2024 Chart Note [facility] Kidney Transplant at [address] [place] [phone] Anny Cote RN Received notice of [...] Recorded In the past 12 months has [employer], gas, oil, or water [employer] threatened to shut off services in your [...] [facility] ENDOSCOPY [address] [place] [address] Chris Orosco MD [address] [place] [phone] 12/05/2024 8:01 AM EDT - 12/05/2024 8:31 AM EDT Surgery [facility] ENDOSCOPY [address] [place] [address] Chris Orosco MD [address] [place] [phone] EGD Scheduled Procedures Name Priority Associated Diagnoses Date/Ti me EGD Cirrhosis of liver with ascites, unspecified hepatic cirrhosis type ([facility]) 12/05/2024 8:01 AM EDT documented [...] documented as of this encounter Care Teams Acetylene Cylinder Packing Mixer Relationship Specialty Start Date End Date Enedina Mcguire NP [address] [place], [place] [phone] PCP - General Internal Medicine 10/05/24 documented as of this encounter
--- OUTSIDE RECORDS SUMMARY | 2024-11-13 08:57 | XMS_ITS | Encounter Summary ---
Author Organization [facility] Address [facility] [place] [address] Care Team Providers Care Armature Varnisher Name Role Phone Unavailable Primary Care Provider [...] release of HIV test results or diagnoses. [id number] Reason for Visit * Reason Comments Appointment Encounter Details Date Type Department Care Team (Late st Contact Info) Description 09/25/2024 Telephone [facility] Interventional Radiology [address] [place] [phone] De Leon, Shamone Appointment Social History [...] Recorded In the past 12 months has [employer], gas, oil, or water [employer] threatened to shut off services in your [...] in a group home (including now)? No 09/05/2024 Yearly Questionnaire [...] IR Procedure, lvm to return call to [phone] opt 1 to schedule. documented in this encounter Plan of Treatment Upcoming Encounters Date Type Department Care Team (Late st Contact Info) Description 12/05/2024 8:01 AM EDT Hospital Encounter [facility] ENDOSCOPY [address] [place] [address] Chris Orosco MD [address] [place] [phone] 12/05/2024 8:01 AM EDT - 12/05/2024 8:31 AM EDT Surgery [facility] ENDOSCOPY [address] [place] [phone] Chris Orosco MD [address] [place] [phone] EGD Scheduled Procedures Name Priority Associated Diagnoses [...]
--- OUTSIDE RECORDS SUMMARY | 2024-11-13 09:00 | XMS_ITS | Encounter Summary ---
Author Organization [facility] Address [address] [place] [address] Care Team Providers Care Net Software Engineer Name Role Phone Enedina Mcguire NP Primary Care Provider [phone] Source Comments This information has been disclosed [...] release of HIV test results or diagnoses. [id number] Health Encounter Details Date Type Department Care [...] Recorded In the past 12 months has [employer] oil, or water [employer] threatened to shut off services in your [...] [facility] [address] [place] [address] Chris Orosco MD [address] [place] [phone] 12/05/2024 8:01 AM EDT - 12/05/2024 8:31 AM EDT Surgery [facility] ENDOSCOPY [address] [place] [address] Chris Orosco MD [address] [place] [phone] EGD Scheduled Procedures Name Priority Associated Diagnoses Date/Ti me EGD Cirrhosis of liver with ascites, unspecified hepatic cirrhosis type ([facility]) 12/05/2024 8:01 AM EDT documented as of this encounter Visit Diagnoses Not on filedocumented in this encounter Additional Health Concerns Infection Onset Date Last Indicated Resolved Time C. difficile 09/09/2024 09/09/2024 10/27/2024 8:30 AM EDT Assessment Noted Time PHQ-9 Depression Total Score: 17 025 11:00 AM EDT documented as of this encounter Care Teams Net Software Engineer Relationship Specialty Start Date End Date Enedina Mcguire NP [address] [place] [address] PCP - General Internal Medicine 10/05/24 documented as of this encounter
--- OUTSIDE RECORDS SUMMARY | 2024-11-13 09:00 | XMS_ITS | Encounter Summary ---
Author Organization [facility] Address [address] [place] [address] Care Team Providers Care Guide Foreign Tour Name Role Phone Enedina Mcguire NP Primary Care Provider [phone] Source Comments This information has been disclosed [...] release of HIV test results or diagnoses. [id number] Reason for Visit * Reason Comments DDLT patient instructions Encounter Details Date Type Department Care Team (Late st Contact Info) Description 10/25/2024 Telephone [facility] Liver Transplant at [address] [phone] Krissy Crowell RN DDLT patient [...] Recorded In the past 12 months has [employer], gas, oil, or water [employer] threatened to shut off services in your [...] Patient will arrive to PACU, ETA is [phone]. Nursing Baby Nurse (Humaira), PACU (Emily), SICU (Lizeth), OR (Omar), txp sgy resident (Aysha), and admitting (Loraine) called with updates on patient arrival. documented in this encounter Plan of Treatment Upcoming Encounters Date Type Department Care Team (Late st Contact Info) Description 12/05/2024 8:01 AM EDT Hospital Encounter [facility] ENDOSCOPY [address] [place] [address] Chris Orosco MD [address] [place] [address] 12/05/2024 8:01 AM EDT - 12/05/2024 8:31 AM EDT Surgery [facility] ENDOSCOPY [address] [place] [address] Chris Orosco MD [address] [place] [phone] EGD Scheduled Procedures Name Priority Associated Diagnoses [...] documented as of this encounter Care Teams Guide Foreign Tour Relationship Specialty Start Date End Date Enedina Mcguire NP [address] [place] [address] PCP - General Internal Medicine 10/05/24 documented as of this encounter
--- OUTSIDE RECORDS SUMMARY | 2024-11-13 09:00 | XMS_ITS | Encounter Summary ---
Author Organization [facility] Address [address] [place] [address] Care Team Providers Care Pneumatic Deicer Inspector Name Role Phone Enedina Mcguire NP Primary Care Provider [phone] Source Comments This information has been disclosed [...] release of HIV test results or diagnoses. [id number] Health Encounter Details Date Type Department Care Team (Late st Contact Info) Description 10/26/2024 Chart Note [facility] Liver Transplant at [address] [place] [phone] Geri Vasquez, ЮЛИЯ Social History Tobacco Use [...] Recorded In the past 12 months has [employer], gas, oil, or water [employer] threatened to shut off services in your [...] Encounter [facility] ENDOSCOPY [address] [place] [address] Chris Orosco MD [address] [place] [phone] 12/05/2024 8:01 AM EDT - 12/05/2024 8:31 AM EDT Surgery [facility] ENDOSCOPY [address] [place] [address] Chris Orosco MD [address] [place] [phone] EGD Scheduled Procedures Name Priority Associated Diagnoses Date/Ti me EGD Cirrhosis of liver with ascites, unspecified hepatic cirrhosis type ([facility]) 12/05/2024 8:01 AM EDT documented as of this encounter Visit Diagnoses Not on filedocumented in this encounter Additional Health Concerns Infection Onset Date Last Indicated Resolved Time C. difficile 09/09/2024 09/09/2024 10/27/2024 8:30 AM EDT Assessment Noted Time PHQ-9 Depression Total Score: 17 05/2 025 11:00 AM EDT documented as of this encounter Care Teams Pneumatic Deicer Inspector Relationship Specialty Start Date End Date Enedina Mcguire NP [address] [place] [address] PCP - General Internal Medicine 10/05/24 documented as of this encounter
[2024-11-13 09:02] LABS: Hematocrit 30.0 % (42.0-52.0); Hemoglobin 9.8 g/dL (14.1-18.0); Immature Granulocytes % 0.7 %; Mean Corpuscular HGB Conc 32.7 g/dL (31.8-35.4); Mean Corpuscular Hemoglobin 30.3 pg (27.0-31.2); Mean Corpuscular Volume 92.9 fl (80-94); Nucleated Red Blood Cells % 0 %; Platelet Count 195 K/mm3 (142-424); Red Blood Count 3.23 M/mm3 (4.60-6.20); Red Cell Distribution Width-SD 65.1 fL; White Blood Count 5.7 K/mm3 (4.8-10.8)
--- OUTSIDE RECORDS SUMMARY | 2024-11-13 09:03 | XMS_ITS | Encounter Summary ---
Author Organization [facility] Address [address] [place] [address] Care Team Providers Care Cloth Dyer Name Role Phone Unavailable Primary Care Provider [...] release of HIV test results or diagnoses. [id number] Health Encounter Details Date Type Department Care Team (Late st Contact Info) Description 09/24/2024 Orders Only [facility] at [facility] [address] [place] [address] Gerri Peterson MD [address] [place] [address] Cirrhosis of liver with ascites, [...] Recorded In the past 12 months has [employer], gas, oil, or water company threatened [...] 8:01 AM EDT Hospital Encounter [facility] ENDOSCOPY [address] [place] [address] Chris Orosco MD [address] [place] [address] 12/05/2024 8:01 AM EDT - 12/05/2024 8:31 AM EDT Surgery [facility] ENDOSCOPY [address] [place] [address] Chris Orosco MD [address] [place] [address] EGD Scheduled Orders Name Type Priority Associated [...] PM EDT) Gram Stain Result Cytospin Results: [facility] Gram Stain Result Polymorphonuclear Leukocytes Seen; [facility] Gram Stain Result No Organisms Seen; [facility] Culture Result No Growth After 5 Days [facility] Fluid ABDOMEN / Unknown 10/10/2024 1:51 PM EDT 10/10/2024 3:56 PM EDT Gerri Peterson MD MICROBIOLOGY - GENERAL ORDERABL ES Final Result Performing Organization Address City/[facility]/ZIP Co de Phone Number [facility] [address] * (ABNORMAL) Body fluid cell count (10/10/2024 1:51 PM EDT) Color, Fluid Yellow(A) Colorless, Pale Yellow 10/10/2024 5:29 PM EDT [facility] Clarity, Fluid Clear 10/10/2024 5:29 PM EDT [facility] Neutrophil %, Fluid 9 % 10/10/2024 5:29 PM EDT [facility] Lymphocytes %, Fluid 13 % 10/10/2024 5:29 PM EDT [facility] Mesothelial %, Fluid 6 % 10/10/2024 5:29 PM EDT [facility] Macrophage %, Fluid 72 % 10/10/2024 5:29 PM EDT [facility] RBC, Fluid 2,662 /uL 10/10/2024 4:41 PM EDT [facility] Total Nucleated Cells, Fluid 89 /uL 10/10/2024 4:41 PM EDT [facility] Comment:Total Nucleated Cell s represent WBCs and other nucleated cells in the fluid such as lining cells. Ascitic Fluid ABDOMEN / Unknown 1:51 PM EDT 10/10/2024 3:56 PM EDT Gerri Peterson MD BODY FLUIDS AND STOOLS ORDERABL ES Final Result Performing Organization Address City/[facility]/ZIP Co de Phone Number [facility] [address] [facility] documented in this encounter Visit [...]
--- OUTSIDE RECORDS SUMMARY | 2024-11-13 09:03 | XMS_ITS | Encounter Summary ---
Author Organization [facility] Address [facility] [place] [address] Care Team Providers Care Trash Collector Name Role Phone Enedina Mcguire NP Primary Care Provider [phone] Source Comments This information has been disclosed [...] release of HIV test results or diagnoses. [id number] Health Encounter Details Date Type Department Care Team (Late st Contact Info) Description 10/27/2024 Orders Only [facility] [address] [place] [address] Abdulkadir Gaspar MD [address] [facility] [address] [place] [address] Social History Tobacco Use Types Packs/Day Years Used Date Smoking Tobacco: Former Cigarettes Smokeless Tobacco: Current Alcohol Use Standard Drinks/Week Comments Yes 0 (1 standard drink = 0.6 oz pure alcohol) History of alcohol abuse, reports no use in 3 week- typically endorses use as 4 glasses of wine a days Utilities Answer Date Recorded In the past 12 months has [employer], gas, oil, or water company threatened to [...] Description 12/05/2024 8:01 AM EDT Hospital Encounter [facility] ENDOSCOPY [address] [place] [address] Chris Orosco MD [address] [place] [phone] 12/05/2024 8:01 AM EDT - 12/05/2024 8:31 AM EDT Surgery [facility] ENDOSCOPY [address] [place] [address] Chris Orosco MD [address] [place] [address] EGD Scheduled Procedures Name Priority Associated Diagnoses Date/Ti me EGD Cirrhosis of liver with ascites, unspecified hepatic cirrhosis type ([facility]) 12/05/2024 8:01 AM EDT documented as of this encounter Procedures Procedure Name Priority Date/Time Associated Diagnosis Comments HOX - HLA ANTIBODY REPORT Routine 10/27/2024 4:16 AM EDT documented in this encounter Results * Hox - HLA Antibody Report (10/27/2024 4:16 AM EDT) 10/27/2024 4:16 AM EDT us Abdulkadir Gaspar MD LAB BLOOD ORDERABLES Final Resul t [facility] [address] [place] [address] documented in this encounter Visit Diagnoses Not on filedocumented in this encounter Additional Health Concerns Infection Onset Date Last Indicated Resolved Time C. difficile 09/09/2024 09/09/2024 10/27/2024 8:30 AM EDT Assessment Noted Time PHQ-9 Depression Total Score: 17 025 11:00 AM EDT documented as of this encounter Care Teams Trash Collector Relationship Specialty Start Date End Date Enedina Mcguire NP [address] [place], [place] [id number] PCP - General Internal Medicine 10/05/24 documented as of this encounter
--- OUTSIDE RECORDS SUMMARY | 2024-11-13 09:03 | XMS_ITS | Encounter Summary ---
Author Organization [facility] Address [address] [place] [address] Care Team Providers Care Manager Transfer Name Role Phone Unavailable Primary Care Provider [...] release of HIV test results or diagnoses. [id number] Reason for Referral * (Routine) - Pending Review Specialty Diagnoses / Procedures Referred By Contac t Referred To Contact Radiology Diagnoses Cirrhosis of liver with ascites, unspecified hepatic cirrhosis type (CMS-HCC) Procedures AMB Referral to Interventional Radiology (BODY IR) Gerri Peterson MD [address] [place] [address] Phone: tel: fax: Referral ID Status Reason Start Date Expiration Date V isits Requested Visits Authorized [id number] Pending Review 09/23/2024 03/22/2025 10 10 Reason for Visit * Reason Comments Orders Order Clarification Request Encounter Details Date Type Department Care Team (Late st Contact Info) Description 09/22/2024 Telephone [facility] [place] [facility] Gastroenterology at [address] [address] Gerri Peterson MD [address] [place] [address] Orders (Order Clarification Request ) Social History [...] the past 12 months has th e [employer], [employer], oil, or water [employer] threatened to shut off services in your [...] 5:26 PM EDT RN faxed order to [phone] * Telephone Encounter - Alondra Reese MA - 09/23/2024 1:35 PM EDT Pt requesting a Standing order for parenthesis to have done 2x a week. * Telephone Encounter - Tamar Blackwood - 09/22/2024 11:22 AM EDT Madina from [facility] asked to clarify paracentesis frequency. Julien had 9 liters removed last week, 7.5 today and asked to get scheduled this Sunday. Madina can be reached at [phone] documented in this encounter Plan of Treatment Upcoming Encounters Date Type Department Care Team (Late st Contact Info) Description 12/05/2024 8:01 AM EDT Hospital Encounter [facility] ENDOSCOPY [address] [place] [address] Chris Orosco MD [address] [place] [address] 12/05/2024 8:01 AM EDT - 12/05/2024 8:31 AM EDT Surgery [facility] ENDOSCOPY [address] [place] [address] Chris Orosco MD [address] [place] [address] EGD Scheduled Orders Name Type Priority Associated [...]
--- OUTSIDE RECORDS SUMMARY | 2024-11-13 09:03 | XMS_ITS | Encounter Summary ---
Author Organization [facility] Address [address] [place] [address] Care Team Providers Care Doll Wig Maker Name Role Phone Unavailable Primary Care [...] release of HIV test results or diagnoses. [id number] Health Encounter Details Date Type Department Care Team (Late st Contact Info) Description 09/17/2024 Telephone [facility] Liver Transplant at [address] [address] Kaylin Willard MSW Social History Tobacco Use [...] Recorded In the past 12 months has [employer], gas, oil, or water company threatened to [...] [facility] ENDOSCOPY [address] [place] [address] Chris Orosco MD [address] [place] [phone] 12/05/2024 8:01 AM EDT - 12/05/2024 8:31 AM EDT Surgery [facility] ENDOSCOPY [address] [place] [address] Chris Orosco MD [address] [place] [address] EGD Scheduled Procedures Name Priority Associated Diagnoses [...]
--- OUTSIDE RECORDS SUMMARY | 2024-11-13 09:03 | XMS_ITS | Encounter Summary ---
Author Organization [facility] Address [address] [place] [address] Care Team Providers Care Operational Meteorologist Name Role Phone Unavailable Primary Care Provider [...] release of HIV test results or diagnoses. [id number] Health Encounter Details Date Type Department Care Team (Late st Contact Info) Description 09/17/2024 Telephone [facility] Liver Transplant at [address] [address] Kaylin Willard MSW Social History Tobacco Use [...] Recorded In the past 12 months has [employer], gas, oil, or water company threatened to [...] 12/05/2024 8:01 AM EDT Hospital Encounter [facility] ENDOSCOPY [address] [place] [address] Chris Orosco MD [address] [place] [phone] 12/05/2024 8:01 AM EDT - 12/05/2024 8:31 AM EDT Surgery [facility] ENDOSCOPY [address] [place] [address] Chris Orosco MD [address] [place] [address] EGD Scheduled Procedures Name Priority Associated Diagnoses [...]
--- OUTSIDE RECORDS SUMMARY | 2024-11-13 09:03 | XMS_ITS | Encounter Summary ---
Author Organization [facility] Address [address] [place] [address] Care Team Providers Care Cloud Systems Administrator Name Role Phone Enedina Mcguire NP Primary Care Provider [phone] Source Comments This information has been disclosed [...] release of HIV test results or diagnoses. [id number] Reason for Visit * Reason Comments Appointment Encounter Details Date Type Department Care Team ([facility] st Contact Info) Description 10/24/2024 Telephone [facility] Renal Hypertension Clinic at [address] [place] [phone] Joann Davies MA Appointment Social History Tobacco Use Types Packs/Day Years Used Date Smoking Tobacco: Former Cigarettes Smokeless Tobacco: Current Alcohol Use Standard Drinks/Week Comments Yes 0 (1 standard drink = 0.6 oz pure alcohol) History of alcohol abuse, reports no use in 3 week- typically endorses use as 4 glasses of wine a days Utilities Answer Date Recorded In the past 12 months has [employer], [employer], oil, or water [employer] threatened to shut off services in your [...] encounter Miscellaneous Notes * Telephone Encounter - Joann Samson, MA - 10/24/2024 11:19 AM EDT Called and spoke with patient Patient has been scheduled for a HDF on 11/06/2024 * Telephone Encounter - Joann Davies MA - 10/24/2024 11:19 AM EDT ----- Message from Fellow Sara Gamino MD sent at 10/16/2024 8:25 PM EDT ----- Regarding: post discharge follow up Hi this one needs post discharge follow up in 2-4 weeks Thanks documented in this encounter Plan of Treatment Upcoming Encounters Date Type Department Care Team (Late st Contact Info) Description 12/05/2024 8:01 AM EDT Hospital Encounter [facility] ENDOSCOPY [address] [place] [address] Chris Orosco MD [address] [place] [phone] 12/05/2024 8:01 AM EDT - 12/05/2024 8:31 AM EDT Surgery [facility] ENDOSCOPY [address] [place] [address] Chris Orosco MD [address] [place] [phone] EGD Scheduled Procedures Name Priority Associated Diagnoses [...] documented as of this encounter Care Teams Cloud Systems Administrator Relationship Specialty Start Date End Date Enedina Mcguire NP [address] [place] [address] PCP - General Internal Medicine 10/05/24 documented as of this encounter
--- OUTSIDE RECORDS SUMMARY | 2024-11-13 09:03 | XMS_ITS | Encounter Summary ---
Author Organization [facility] Address [address] [place] [address] Care Team Providers Care Human Resources Designate Name Role Phone Enedina Mcguire NP Primary Care Provider [phone] Source Comments This information has been disclosed [...] release of HIV test results or diagnoses. [id number] Encounter Details Date Type Department Care Team (Late st Contact Info) Description 10/25/2024 Telephone [facility] Liver Transplant at [address] [address] Krissy Crowell RN Social History Tobacco Use [...] Recorded In the past 12 months has [employer], gas, oil, or water [employer] threatened to shut off services in your [...] granted: N/A OPO: CHACHA OPO Contact: Kiet [phone] Recent illnesses (surgeon aware) [x] Yes [] [...] need to bring equipment or solution to [facility]. They will get supplies from dialysis unit [...] Notifications: Department Phone Comments Time/Name Capacity Management [phone] Notified of patient's pending TXP ORGANS: Liver Kidney Time: Spoke to: OR [phone] OR scheduled for: per Dr. Domínguez Recipient in the OR time 10/25/2024 @ 2200 Acute donor Risk (according to OPTN policy) YES (HCV, HBV, HIV, COVID) Notified Donor is DCD Time: 1145, spoke to Faraz OR personnel records clerk: Gladys RAMIREZ ORGAN Time: yes 1155 BLOOD BANK [phone] For Liver and Heart only Spoke to [place] 1212 Nursing Commercial Loan Assistant [phone] For delayed call in [facility] at 1158 PACU or Sameday [phone] Delayed call in: If recipient OR is 2 hrs or less from admission, call PACU/Sameday (basedon where nursing motor assembly supervisor assigns patient) Abdominal Transplant 8CCP [phone] Transfer of care reported for abdominal txp Notified of dialysis type and last session if applicable Time: 8CCP personnel records clerk: SICU [phone] Notify about abdominal txp admissions Time: 1215 SICU personnel records clerk: Aleks Transplant Surgery Resident/PA QGenda Time: 1219 Spoke to: Dr. Corbett Transplant Surgery Fellow QGenda Time: 1200 Spoke to: Sveta Mojica MD Transplant Research Team [phone] Time: 1218 Spoke to: Macey If applicable, Dialysis Unit EMR Time: Spoke to: Pharmacy IV Room [phone] Liver Only Contact pharmacy to alert that HBIG will be needed when all the following are present: Donor: *HBsAg negative *HBV DNA/KIANA negative Recipient: *HBsAg positive *HBV DNA is detectable on most recent check Time: Spoke to: Heart Transplant CVICU [phone] Transfer of care reported for heart txp Time: CVICU personnel records clerk: Email notification to Transplant Team(s) and OR personnel records clerk. [Send the following information below to the [...] Venoveno bypass: No Donor info: Donor ID: [id number] Match ID: [id number] Anti-HBc: Negative HBV KIANA: Negative HBsAg: Negative [...] Hospital Encounter [facility] ENDOSCOPY [address] [place] [address] Chris Orosco MD [address] [place] [address] 12/05/2024 8:01 AM EDT - 12/05/2024 8:31 AM EDT Surgery [facility] ENDOSCOPY [address] [place] [address] Chris Orosco MD [address] [place] [address] EGD Scheduled Procedures Name Priority Associated Diagnoses [...] documented as of this encounter Care Teams Human Resources Designate Relationship Specialty Start Date End Date Enedina Mcguire NP [address] [place] [address] PCP - General Internal Medicine 10/05/24 documented as of this encounter
--- OUTSIDE RECORDS SUMMARY | 2024-11-13 09:03 | XMS_ITS | Encounter Summary ---
Author Organization [facility] Address [address] [place] [address] Care Team Providers Care Chimney Sweeper Name Role Phone Enedina Mcguire NP Primary Care Provider [phone] Source Comments This information has been disclosed [...] release of HIV test results or diagnoses. [id number] Encounter Details Date Type Department Care Team (Late st Contact Info) Description 10/26/2024 Chart Note [facility] Kidney Transplant at [address] [place] [address] Geri Vasquez, ЮЛИЯ Social History Tobacco Use [...] Recorded In the past 12 months has [employer], gas, oil, or water [employer] threatened to shut off services in your [...] [facility] ENDOSCOPY [address] [address] Chris Orosco MD [address] [place] [address] 12/05/2024 8:01 AM EDT - 12/05/2024 8:31 AM EDT Surgery [facility] ENDOSCOPY [address] [phone] Chris Orosco MD [address] [place] [address] EGD Scheduled Procedures Name Priority Associated Diagnoses Date/Ti me EGD Cirrhosis of liver with ascites, unspecified hepatic cirrhosis type ([facility]) 12/05/2024 8:01 AM EDT documented as of this encounter Visit Diagnoses Not on filedocumented in this encounter Additional Health Concerns Infection Onset Date Last Indicated Resolved Time C. difficile 09/09/2024 09/09/2024 10/27/2024 8:30 AM EDT Assessment Noted Time PHQ-9 Depression Total Score: 17 05/2 025 11:00 AM EDT documented as of this encounter Care Teams Chimney Sweeper Relationship Specialty Start Date End Date Enedina Mcguire NP [address] [place] [address] PCP - General Internal Medicine 10/05/24 documented as of this encounter
--- OUTSIDE RECORDS SUMMARY | 2024-11-13 09:03 | XMS_ITS | Encounter Summary ---
Author Organization [facility] Address [address] [place] [address] Care Team Providers Care Electrician Helper Powerhouse Name Role Phone Enedina Mcguire NP Primary Care Provider [phone] Source Comments This information has been disclosed [...] release of HIV test results or diagnoses. [id number] Health Encounter Details Date Type Department Care Team (Late st Contact Info) Description 10/22/2024 Telephone [facility] Psychiatry Transplant at [facility] [address] [facility] [address] [place] [address] Lizeth Warren PsyD [address] [facility] [address] [place] [address] Social History Tobacco Use Types Packs/Day Years Used Date Smoking Tobacco: Former Cigarettes Smokeless Tobacco: Current Alcohol Use Standard Drinks/Week Comments Yes 0 (1 standard drink = 0.6 oz pure alcohol) History of alcohol abuse, reports no use in 3 week- typically endorses use as 4 glasses of wine a days Utilities Answer Date Recorded In the past 12 months has [employer], gas, oil, or water [employer] threatened to shut off services in your [...] appts. Went to voicemail. Left vm referencing vendome 1699 message with availability times listed. Encouraged patient to response with preferred slot. documented in this encounter Plan of Treatment Upcoming Encounters Date Type Department Care Team (Late st Contact Info) Description 12/05/2024 8:01 AM EDT Hospital Encounter [facility] ENDOSCOPY [address] [place] [address] Chris Orosco MD [address] [place] [phone] 12/05/2024 8:01 AM EDT - 12/05/2024 8:31 AM EDT Surgery [facility] ENDOSCOPY [address] [place] [address] Chris Orosco MD [address] [place] [phone] EGD Scheduled Procedures Name Priority Associated Diagnoses [...] documented as of this encounter Care Teams Electrician Helper Powerhouse Relationship Specialty Start Date End Date Enedina Mcguire NP [address] [place] [address] PCP - General Internal Medicine 10/05/24 documented as of this encounter
--- OUTSIDE RECORDS SUMMARY | 2024-11-13 09:03 | XMS_ITS | Encounter Summary ---
Author Organization [facility] Address [address] [place] [address] Care Team Providers Care Web Developer Name Role Phone Enedina Mcguire NP Primary Care Provider [phone] Source Comments This information has been disclosed [...] release of HIV test results or diagnoses. [id number] Encounter Details Date Type Department Care Team (Late st Contact Info) Description 10/22/2024 Status Update [facility] Kidney Transplant at [facility] [address] [facility] [address] [place] [address] Aaron Gonzalez MD [address] [facility] [place] [address] Social History Tobacco Use Types Packs/Day Years Used Date Smoking Tobacco: Former Cigarettes Smokeless Tobacco: Current Alcohol Use Standard Drinks/Week Comments Yes 0 (1 standard drink = 0.6 oz pure alcohol) History of alcohol abuse, reports no use in 3 week- typically endorses use as 4 glasses of wine a days Utilities Answer Date Recorded In the past 12 months has [employer], gas, oil, or water [employer] threatened to shut off services in your [...] Encounter [facility] ENDOSCOPY [address] [place] [address] Chris Orosco MD [address] [place] [phone] 12/05/2024 8:01 AM EDT - 12/05/2024 8:31 AM EDT Surgery [facility] ENDOSCOPY [address] [facility] [place] [address] Chris Orosco MD [address] [place] [phone] EGD Scheduled Procedures Name Priority Associated Diagnoses Date/Ti me EGD Cirrhosis of liver with ascites, unspecified hepatic cirrhosis type ([facility]) 12/05/2024 8:01 AM EDT documented as of this encounter Visit Diagnoses Not on filedocumented in this encounter Additional Health Concerns Infection Onset Date Last Indicated Resolved Time C. difficile 09/09/2024 09/09/2024 10/27/2024 8:30 AM EDT Assessment Noted Time PHQ-9 Depression Total Score: 17 025 11:00 AM EDT documented as of this encounter Care Teams Web Developer Relationship Specialty Start Date End Date Enedina Mcguire NP [address] [place] [address] PCP - General Internal Medicine 10/05/24 documented as of this encounter
--- OUTSIDE RECORDS SUMMARY | 2024-11-13 09:03 | XMS_ITS | Encounter Summary ---
Author Organization [facility] Address [address] [place] [address] Care Team Providers Care Metal Fabricating Supervisor Name Role Phone Enedina Mcguire NP Primary Care Provider [phone] Source Comments This information has been disclosed [...] release of HIV test results or diagnoses. [id number] Encounter Details Date Type Department Care Team (Late st Contact Info) Description 10/22/2024 Chart Note [facility] Liver Transplant at [address] [phone] Mary Butler, RN Social History Tobacco Use [...] Recorded In the past 12 months has [employer], gas, oil, or water [employer] threatened to shut off services in your [...] Encounter [facility] ENDOSCOPY [address] [place] [address] Chris Orosco MD [address] [place] [phone] 12/05/2024 8:01 AM EDT - 12/05/2024 8:31 AM EDT Surgery [facility] ENDOSCOPY [address] [place] [address] Chris Orosco MD [address] [place] [phone] EGD Scheduled Procedures Name Priority Associated Diagnoses [...] 3.2(A) 3.5 - 5.0 g/dL Blood Result [facility] Provider MD LAB BLOOD ORDERABLES Denisse l [...] 3.1(A) 3.5 - 5.0 g/dL Blood Result [facility] LAB BLOOD ORDERABLES Denisse l Result * (ABNORMAL) Protime-INR (10/21/2024) INR 1.52(A) 0.9 - 1.1 Protime 16.4 Plasma Result [facility] LAB BLOOD ORDERABLES Denisse l Result * (ABNORMAL) Hepatic Function Panel (10/21/2024) Bilirubin, Direct 5.4 Alkaline Phosphatase 190 U/L ALT 32 U/L AST 57 U/L Total Bilirubin 7.3(A) 0.1 - 1.4 mg/dL Total Protein 5.4(A) 6.4 - 8.2 g/dL Plasma Result [facility] LAB BLOOD ORDERABLES Denisse l Result documented in this encounter Visit Diagnoses Not on filedocumented in this encounter Additional Health Concerns Infection Onset Date Last Indicated Resolved Time C. difficile 09/09/2024 09/09/2024 10/27/2024 8:30 AM EDT Assessment Noted Time PHQ-9 Depression Total Score: 17 025 11:00 AM EDT documented as of this encounter Care Teams Metal Fabricating Supervisor Relationship Specialty Start Date End Date Enedina Mcguire NP [address] [place] [address] PCP - General Internal Medicine 10/05/24 documented as of this encounter
--- OUTSIDE RECORDS SUMMARY | 2024-11-13 09:03 | XMS_ITS | Encounter Summary ---
Author Organization [facility] Address [address] [place] [address] Care Team Providers Care Loss Prevention Investigator Name Role Phone Unavailable Primary Care Provider [...] release of HIV test results or diagnoses. [id number] Health Encounter Details Date Type Department Care Team (Late st Contact Info) Description 09/17/2024 Abstract [facility] [address] [place] [address] Gerri Peterson MD [address] [place] [address] Social History Tobacco Use Types Packs/Day Years Used Date Smoking Tobacco: Former Cigarettes Smokeless Tobacco: Current Alcohol Use Standard Drinks/Week Comments Yes 0 (1 standard drink = 0.6 oz pure alcohol) History of alcohol abuse, reports no use in 3 week- typically endorses use as 4 glasses of wine a days Utilities Answer Date Recorded In the past 12 months has [facility] [employer], gas, oil, or water [employer] threatened to shut off services in [...] 12/05/2024 8:01 AM EDT Hospital Encounter [facility] ENDOSCOPY [address] [place] [address] Chris Orosco MD [address] [place] [phone] 12/05/2024 8:01 AM EDT - 12/05/2024 8:31 AM EDT Surgery [facility] ENDOSCOPY [address] [place] [address] Chris Orosco MD [address] [place] [phone] EGD Scheduled Procedures Name Priority Associated Diagnoses [...] Glucose, random (09/16/2024 12:20 PM EDT) Pathologist [facility] Glucose 97 60 - 200 mg/dL Plasma Result [facility] Gerri Peterson MD LAB BLOOD ORDERABLES [...] 9.3 8.7 - 10.7 mg/dL Blood Result [facility] Gerri Peterson MD LAB BLOOD ORDERABLES Final Resu lt * Comprehensive metabolic panel (09/16/2024 12:20 PM EDT) CO2 15 13 - 22 mmol/L Plasma Result [facility] Gerri Peterson MD LAB BLOOD ORDERABLES Final Resu lt * (ABNORMAL) Protime-INR (09/16/2024 12:20 PM EDT) Pathologist [facility] INR 1.89(A) 0.9 - 1.1 Protime 19.9(A) 10.0 - 13.[address] [facility] Gerri Peterson MD LAB BLOOD ORDERABLES Final Resu lt * (ABNORMAL) CBC (09/16/2024 12:20 PM EDT) Red Blood Cells: 2.52 Hemoglobin 9.1(A) 13.5 - 17.5 g/dL Hematocrit 25.8(A) 41 - 53 % MCV 102.4 82.0 - 108.0 fL WBC 9.9 10^3/mL Whole Blood Result [facility] Gerri Peterson MD LAB BLOOD ORDERABLES Final Resu lt * CBC and differential (09/16/2024 12:20 PM EDT) Neutrophils Absolute 8.4 / L Blood Result [facility] Gerri Peterson MD LAB BLOOD ORDERABLES [...]
--- OUTSIDE RECORDS SUMMARY | 2024-11-13 09:03 | XMS_ITS | Encounter Summary ---
Author Organization [facility] Address [address] [place] [address] Care Team Providers Care Deputy Brand Inspector Name Role Phone Enedina Mcguire NP Primary Care Provider [phone] Source Comments This information has been disclosed [...] release of HIV test results or diagnoses. [id number] Encounter Details Date Type Department Care Team (Late st Contact Info) Description 10/22/2024 Chart Note [facility] Kidney Transplant at [address] [place] [phone] Gladis Rainey RN Received most recent [...] Recorded In the past 12 months has [employer], gas, oil, or water [employer] threatened to shut off services in your [...] Rainey RN - 10/22/2024 1:51 PM EDT [facility] VERIFICATION CHECK FORM Julien Anderson [id number]s or answer yes or no next to each item to note you have verified the information for listing on this patient in [facility]. First Name nh Last Name az Middle Initial N/a Date of az SS# az Center ID# (MRN) az ABO x 2 az / az I have verified the two (2) blood type results for this candidate are the same blood type and matchthe results reported in UNet. 2728 date [facility] N/a 2728 date [facility] N/a If patient is not on Dialysis Verify date of GFR and GFR 19 on 08/13/24 *Meets CKD Criteria for [facility] listing today with today eGFR 21 on 10/22/24 *Kidney checked in Liver registration as additional organ Listing date in [facility] match nh Listing date notification letter match [facility] Updated consent on file [x] Yes [] [...] Team documentation Nephrology within the last year az ironworker within the last year az Dietitian within the last year az Finance within the last year az Pharmacy within the last year az Initial surgery assessment az RN coordinator documentation nh * Terra Pyle RN - 10/22/2024 1:51 PM EDT OS VERIFICATION CHECK FORM Julien Anderson [id number] [address] initials or answer yes or [...] UNet. 2727 date [facility]OS N/A 2727 date [facility] N/A If patient is not on Dialysis Verify date of GFR and GFR 19 on 08/13/24 Verified that liver was checked on kidney registration Verified that kidney was checked on liver registration Listing date in [facility] match MW Listing date notification letter match [facility] Updated consent on file [...] documentation Nephrology within the last year MW ironworker within the last year MW Dietitian within the last year MW Finance within the last year MW Pharmacy within the last year MW Initial surgery assessment RN coordinator documentation MW documented in this encounter Plan of Treatment Upcoming Encounters Date Type Department Care Team (Late st Contact Info) Description 12/05/2024 8:01 AM EDT Hospital Encounter [facility] ENDOSCOPY [address] [place] [address] Chris Orosco MD [address] [place] [phone] 12/05/2024 8:01 AM EDT - 12/05/2024 8:31 AM EDT Surgery [facility] ENDOSCOPY [address] [place] [address] Chris Orosco MD [address] [place] [phone] EGD Scheduled Procedures Name Priority Associated Diagnoses [...] documented as of this encounter Care Teams Deputy Brand Inspector Relationship Specialty Start Date End Date Enedina Mcguire NP [address] [place] [address] PCP - General Internal Medicine 10/05/24 documented as of this encounter
--- OUTSIDE RECORDS SUMMARY | 2024-11-13 09:03 | XMS_ITS | Encounter Summary ---
Author Organization [facility] Address [address] [place] [address] Care Team Providers Care Builder'S Labourer Name Role Phone Enedina Mcguire NP Primary Care Provider [phone] Source Comments This information has been disclosed [...] release of HIV test results or diagnoses. [id number] Encounter Details Date Type Department Care Team (Late st Contact Info) Description 10/22/2024 Telephone [facility] Liver Transplant at [address] [address] Mary Butler, RN Social History Tobacco Use [...] Recorded In the past 12 months has [employer], gas, oil, or water [employer] threatened to shut off services in your [...] will need ~[address] [facility]. documented in this encounter Plan of Treatment Upcoming Encounters Date Type Department Care Team (Late st Contact Info) Description 12/05/2024 8:01 AM EDT Hospital Encounter [facility] ENDOSCOPY [address] [place] [address] Chris Orosco MD [address] [place] [phone] 12/05/2024 8:01 AM EDT - 12/05/2024 8:31 AM EDT Surgery [facility] ENDOSCOPY [address] [place] [address] Chris Orosco MD [address] [place] [phone] EGD Scheduled Procedures Name Priority Associated Diagnoses Date/Ti me EGD Cirrhosis of liver with ascites, unspecified hepatic cirrhosis type ([facility]) 12/05/2024 8:01 AM EDT documented as of this encounter Visit Diagnoses Not on filedocumented in this encounter Additional Health Concerns Infection Onset Date Last Indicated Resolved Time C. difficile 09/09/2024 09/09/2024 10/27/2024 8:30 AM EDT Assessment Noted Time PHQ-9 Depression Total Score: 17 05/19/2 025 11:00 AM EDT documented as of this encounter Care Teams Builder'S Labourer Relationship Specialty Start Date End Date Enedina Mcguire NP [address] [place] [address] PCP - General Internal Medicine 10/05/24 documented as of this encounter
--- OUTSIDE RECORDS SUMMARY | 2024-11-13 09:03 | XMS_ITS | Encounter Summary ---
Author Organization [facility] Address [address] [place] [address] Care Team Providers Care Plateman Name Role Phone Enedina Mcguire NP Primary Care Provider [phone] Source Comments This information has been disclosed [...] release of HIV test results or diagnoses. [id number] Encounter Details Date Type Department Care Team (Late st Contact Info) Description 10/22/2024 Chart Note [facility] Liver Transplant at [address] [place] [phone] Faraz Carballo RN 2nd ABO verified for [...] In the past 12 months has [employer], gas, oil, or water [employer] threatened to shut off services in your [...] 12/05/2024 8:01 AM EDT Hospital Encounter [facility] ENDOSCOPY [address] [place] [address] Chris Orosco MD [address] [place] [phone] 12/05/2024 8:01 AM EDT - 12/05/2024 8:31 AM EDT Surgery [facility] ENDOSCOPY [address] [place] [address] Chris Orosco MD [address] [place] [phone] EGD Scheduled Procedures Name Priority Associated Diagnoses [...] documented as of this encounter Care Teams Plateman Relationship Specialty Start Date End Date Enedina Mcguire NP [address] [place] [address] PCP - General Internal Medicine 10/05/24 documented as of this encounter
--- OUTSIDE RECORDS SUMMARY | 2024-11-13 09:03 | XMS_ITS | Encounter Summary ---
Author Organization [facility] Address [address] [place] [address] Care Team Providers Care Manager R D Name Role Phone Enedina Mcguire NP Primary Care Provider [phone] Source Comments This information has been disclosed [...] release of HIV test results or diagnoses. [id number] Health Encounter Details Date Type Department Care Team (Late st Contact Info) Description 10/22/2024 Chart Note [facility] [address] [place] [address] Aaron Gonzalez MD [address] [place] [phone] Candidacy for a simultaneous liver-kidney transplant Social [...] Recorded In the past 12 months has [employer], gas, oil, or water [employer] threatened to shut off services in your [...] (ESRD) patient in a hospital based, [facility]-hospital based, or home setting. -At the time [...] I have discussed this plan with the residence life coordinator and the liver transplant team. documented in this encounter Plan of Treatment Upcoming Encounters Date Type Department Care Team (Late st Contact Info) Description 12/05/2024 8:01 AM EDT Hospital Encounter [facility] ENDOSCOPY [address] [place] [address] Chris Orosco MD [address] [place] [phone] 12/05/2024 8:01 AM EDT - 12/05/2024 8:31 AM EDT Surgery [facility] ENDOSCOPY [address] [place] [address] Chris Orosco MD [address] [place] [phone] EGD Scheduled Procedures Name Priority Associated Diagnoses [...] as of this encounter Care Teams Manager R D Relationship Specialty Start Date End Date Enedina Mcguire NP [address] [place] [address] PCP - General Internal Medicine 10/05/24 documented as of this encounter
--- OUTSIDE RECORDS SUMMARY | 2024-11-13 09:03 | XMS_ITS ---
Author Organization [facility] Address [address] [place] [address] Care Team Providers Care Pan Tank Worker Name Role Phone Enedina Mcguire NP Primary Care Provider [phone] Maureen Pantoja RN Unavailable Unavail able Transplant Episode Kidney Recipient [facility] [place]) [facility] Organ Received: Left Kidney Transplanted on 10/27/2024 Marked as Active Follow-up on 10/27/2024 Kidney CoordinatorJosr Weber RN Phone: N/A Fax: N/A Email: N/A [place] Organ Diagnosis Organ Primary Contributory Kidney Hepatorenal [...] N/A N/A Flaquito Mayen MD Txp Surgeon [phone] N/A Bruno Gonzalez MD Txp Associate Professor Of Forestry [phone] N/A Yovanny Curran MD Referring Physician [phone] N/A Events Post-Transplant Pre-Transplant Admitted: 10/25/2024 Referred: 10/07/2024 Transplanted: 10/27/2024 Evaluation began: Discharged: 11/02/2024 Committee: 10/20/2024 Center waitlisted: 5
--- OUTSIDE RECORDS SUMMARY | 2024-11-13 09:03 | XMS_ITS | Encounter Summary ---
Author Organization [facility] Address [address] [place] [address] Care Team Providers Care Corporate Officer Name Role Phone Enedina Mcguire NP Primary Care Provider [phone] Source Comments This information has been disclosed [...] release of HIV test results or diagnoses. [id number] Encounter Details Date Type Department Care Team (Late st Contact Info) Description 10/22/2024 Chart Note [facility] Liver Transplant at [address] [place] [phone] Mary Butler, RN [facility] VERIFICATION CHECK FORM [...] Recorded In the past 12 months has [employer], [employer], oil, or water [employer] threatened to shut off services in your [...] Multidisciplinary Team documentation Initial Hepatology assessment sb handy worker within the last year sb Dietitian [...] Multidisciplinary Team documentation Initial Hepatology assessment nlc handy worker within the last year nlc Dietitian [...] 12/05/2024 8:01 AM EDT Hospital Encounter [facility] ENDOSCOPY [address] [place] [address] Chris Orosco MD [address] [place] [phone] 12/05/2024 8:01 AM EDT - 12/05/2024 8:31 AM EDT Surgery [facility] ENDOSCOPY [address] [place] [phone] Chris Orosco MD [address] [place] [phone] EGD Scheduled Procedures Name Priority Associated Diagnoses [...] as of this encounter Care Teams Corporate Officer Relationship Specialty Start Date End Date Enedina Mcguire NP [address] [place] [address] PCP - General Internal Medicine 10/05/24 documented as of this encounter
--- OUTSIDE RECORDS SUMMARY | 2024-11-13 09:03 | XMS_ITS ---
Author Organization [facility] Address [address] [place] [address] Care Team Providers Care Ict Managers Name Role Phone Enedina Mcguire NP Primary Care Provider [phone] Maureen Pantoja RN Unavailable Unavail able Transplant Episode Liver Recipient [facility] [place] Organ Received: Liver Transplanted on 10/26/2024 Marked as Active Follow-up on 10/26/2024 Liver CoordinatorMaureen Pantoja RN Phone: N/A Fax: N/A Email: N/A [place] Organ Diagnosis Organ Primary Contributory Liver Alcohol-Associated [...] N/A N/A Chris Orosco MD Referring Physician [phone] N/A Maureen Pantoja, RN Txp Post Coordinator N/A N/A N/A NUBIA Barros Txp Photogravure Press Operator N/A N/A N/A Harvey Domínguez III, MD Txp Surgeon [phone] N/A Mary Butler, ЮЛИЯ Txp Pre Coordinator N/A N/A N/A Events Post-Transplant Pre-Transplant Admitted: 10/25/2024 Referred: 08/13/2024 Transplanted: 10/26/2024 Evaluation began: 5 Discharged: 11/02/2024 Committee: 10/14/2024 Center waitlisted: 5 Appointments (10/14/2024 - 12/14/2024) When With Visit Type Description 11/04/2024 Txp Jose Hanna Established Patient Kidney transplant recipient (Primary Dx); Diarrhea of presumed infectious origin; Hypomagnesemia; Hypervolemia, unspecified hypervolemia type; Liver transplant recipient ([facility]); Other hypervolemia; Hyperparathyroidism ([facility]); Nausea and vomiting, unspecified vomiting type 11/04/2024 Txp Ebony Watkins Established Patient Li jemma transplant recipient ([facility]) (Primary Dx); Alcoholic cirrhosis of liver with ascites ([facility]); Kidney transplant recipient; Acute kidney injury superimposed on CKD ([facility]); CKD (chronic kidney disease) stage 4, GFR 15-29 ml/min (CMS-HCC); Immunosuppressive management encounter following liver transplant ([facility]); Abdominal pain, unspecified abdominal location 11/11/2024 Txp Kady De La Rosa Established Patient Encounter for therapeutic drug monitoring (Primary Dx); Abdominal pain, unspecified abdominal location 11/11/2024 Txp Lorrie Mascorro Established Patient Arr ived
--- OUTSIDE RECORDS SUMMARY | 2024-11-13 09:03 | XMS_ITS | Encounter Summary ---
Author Organization [facility] Address [facility] [place] [address] Care Team Providers Care [place] Actor Name Role Phone Enedina Mcguire NP Primary Care Provider [phone] Source Comments This information has been disclosed [...] release of HIV test results or diagnoses. [id number] Health Encounter Details Date Type Department Care Team (Late st Contact Info) Description 10/22/2024 Orders Only [facility] [address] [place] [address] Abdulkadir Gaspar MD [address] [facility] [address] [place] [address] Social History Tobacco Use Types Packs/Day Years Used Date Smoking Tobacco: Former Cigarettes Smokeless Tobacco: Current Alcohol Use Standard Drinks/Week Comments Yes 0 (1 standard drink = 0.6 oz pure alcohol) History of alcohol abuse, reports no use in 3 week- typically endorses use as 4 glasses of wine a days Utilities Answer Date Recorded In the past 12 months has [email or web address], gas, oil, or water company threatened to [...] Hospital Encounter [facility] ENDOSCOPY [address] [place] [address] Chris Orosco MD [address] [place] [phone] 12/05/2024 8:01 AM EDT - 12/05/2024 8:31 AM EDT Surgery [facility] ENDOSCOPY [address] [place] [address] Chris Orosco MD [address] [place] [address] EGD Scheduled Procedures Name Priority Associated Diagnoses Date/Ti me EGD Cirrhosis of liver with ascites, unspecified hepatic cirrhosis type ([facility]) 12/05/2024 8:01 AM EDT documented as of this encounter Procedures Procedure Name Priority Date/Time Associated Diagnosis Comments HOX - HLA ANTIBODY-DETAILED REPORT Routine 10/22/2024 12:32 PM EDT documented in this encounter Results * Hox - HLA Antibody-Detailed Report (10/22/2024 12:32 PM EDT) 10/22/2024 12:3 2 PM EDT us Abdulkadir Gaspar MD LAB BLOOD ORDERABLES Final Resul t [facility] [address] [facility] [place] [address] documented in this encounter Visit Diagnoses Not on filedocumented in this encounter Additional Health Concerns Infection Onset Date Last Indicated Resolved Time C. difficile 09/09/2024 09/09/2024 10/27/2024 8:30 AM EDT Assessment Noted Time PHQ-9 Depression Total Score: 17 025 11:00 AM EDT documented as of this encounter Care Teams [place] Actor Relationship Specialty Start Date End Date Enedina Mcguire NP [address] [place], [place] [phone] PCP - General Internal Medicine 10/05/24 documented as of this encounter
--- OUTSIDE RECORDS SUMMARY | 2024-11-13 09:03 | XMS_ITS | Encounter Summary ---
Author Organization [facility] Address [facility] [place] [address] Care Team Providers Care Survey And Mapping Technician Name Role Phone Unavailable Primary Care [...] release of HIV test results or diagnoses. [id number] Reason for Visit * Reason Comments After Hours Call Encounter Details Date Type Department Care Team (Late st Contact Info) Description 09/02/2024 Telephone [facility] PATIENT SERVICES [address] [place] [address] Unknown, Attending Provider After Hours [...] Recorded In the past 12 months has [employer], gas, oil, or water [employer] threatened to shut off services in [...] in a senior living (including now)? No 09/05/2024 Yearly Questionnaire Answer [...] to Patient and Callback: [facility] ([facility]) [phone] Patient of: DR. LINARES Nature of Call: CRITICAL LAB RESULT Water Treatment Plant Supervisor Provider Contacted: DR. VINES Time and Method of Contact:PAGED @ 8:54PM Advise Caller: If provider does not call back within 30 minutes, please call us back. ROUTE TELEPHONE NOTE - Follow Q[employer]enda and/or Route Directly to Provider. COPY this note into [facility] Teams chat. documented in this encounter Plan of Treatment Upcoming Encounters Date Type Department Care Team (Late st Contact Info) Description 12/05/2024 8:01 AM EDT Hospital Encounter [facility] ENDOSCOPY [address] [place] [address] Chris Orosco MD [address] [place] [phone] 12/05/2024 8:01 AM EDT - 12/05/2024 8:[address] [facility] ENDOSCOPY [address] [place] [address] Chris Orosco MD [address] [place] [address] EGD Scheduled Procedures Name Priority Associated Diagnoses Date/Ti fl EGD Cirrhosis of liver with ascites, unspecified [...]
[2024-11-13 09:13] LABS: INR 0.95 (0.9-1.1); Prothrombin Time 10.6 seconds (10.1-12.5)
[2024-11-13 10:10] LABS: Alanine Aminotransferase 29 U/L (12-78); Albumin Level 3.8 g/dl (3.5-5.0); Alkaline Phosphatase 137 U/L (38-126); Anion Gap 15.5 mEq/L (5-15); Aspartate Amino Transferase 20 U/L (17-59); Bilirubin,Direct 0.6 mg/dl (0.0-0.4); Bilirubin,Indirect 0.2 mg/dL (0.0-0.9); Bilirubin,Total 0.8 mg/dl (0.2-1.3); Bilirubin,Unconjugated 0.2 mg/dL (0.0-1.1); Blood Urea Nitrogen 25 mg/dl (9-20); Calcium 9.2 mg/dl (8.4-10.2); Carbon Dioxide 22 mmol/L (22.0-30.0); Chloride 102 mmol/L (98-107); Creatinine,Serum 0.90 mg/dl (0.66-1.25); Estimated Glomerular Filt Rate 93 ml/min (>60); GFR (African American) 113 ML/MIN (>60); Glucose 108 mg/dl (74-100); Phosphorous 4.6 mg/dl (2.5-4.5); Potassium 4.5 mmoL/L (3.5-5.1); Sodium 135 mmol/L (136-145); Total Protein,Serum 5.8 g/dl (6.3-8.2)
[2024-11-17 13:10] LABS: Tacrolimus (FK506), Blood 10.9 ng/mL (5.0-20.0)
== END 2024-11-13 23:59 | disposition home or self-care (01) ==
LOC: LAB 08:42
PROVIDERS: PCP Nurse Practitioner Family; Visit Provider Nurse Practitioner Family
DX: R18.8 Other ascites (principal); K74.60 Unspecified cirrhosis of liver; Z94.4 Liver transplant status; Z79.60 Long term (current) use of unspecified immunomodulators and immunosuppressants
CPT/HCPCS: 36415; 80069; 80076; 80197; 85025; 85610

== ENCOUNTER 2024-11-18 07:39 | Outpatient (CLI) | payer OTHER, SELFPAY ==
--- OUTSIDE RECORDS SUMMARY | 2024-09-25 11:25 | XMS_ITS | Encounter Summary ---
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 [id number] Reason for Visit * Reason Comments Labs Only Encounter Details Date Type Department Care Team (Late st Contact Info) Description 09/25/2024 11:25 AM EDT Specimen [facility] Outreach Lab [address] [place] [phone] Gerri Peterson MD [facility] [place] [address] Cirrhosis of liver with ascites, unspecified hepatic cirrhosis type (CMS-HCC); Pre-transplant evaluation for chronic liver disease; Alcoholic cirrhosis of liver without ascites (CMS-HCC) [...] Recorded In the past 12 months has [employer], oil, or water [employer] threatened to shut off services in your [...] PHQ-2 Answer Date Recorded PHQ-2 Total Score 2 09/26/2024 Hunger Vital Sign Answer Date Recorded Within [...] any time in the past 12 m [facility], were you homeless or living in a [facility] (including now)? No 09/05/2024 Yearly Questionnaire Answer [...] Description 12/05/2024 8:01 AM EDT Hospital Encounter [facility] ENDOSCOPY [address] [place] [address] Chris Orosco MD [address] [place] [phone] 12/05/2024 8:01 AM EDT - 12/05/2024 8:31 AM EDT Surgery [facility] ENDOSCOPY [address] [place] [address] Chris Orosco MD [address] [place] [address] EGD Scheduled Procedures Name Priority Associated Diagnoses Date/Ti me EGD Cirrhosis of liver with ascites, unspecified hepatic cirrhosis type (CMS-HCC) 12/05/2024 8:01 AM EDT documented as of this encounter Procedures Procedure Name Priority Date/Time Associated Diagnosis Comments PHOSPHATIDYLETHANOL CONFIRMATION, B Routine 09/25/2024 11:55 AM EDT Pre-transplant evaluation for chronic liver disease Alcoholic cirrhosis of liver without ascites (CMS-HCC) URINE DRUG COMPREHENSIVE PANEL, CONFIRMATION Routine 09/25/2024 11:55 AM EDT Pre-transplant evaluation for chronic liver disease Alcoholic cirrhosis of liver without ascites (CMS-HCC) HEPATIC FUNCTION PANEL Routine 11:55 AM EDT Cirrhosis of liver with ascites, unspecified hepatic cirrhosis type (CMS-HCC) PROTIME-INR Routine 09/25/2024 11:55 AM EDT Cirrhosis of liver with ascites, unspecified hepatic cirrhosis type (CMS-HCC) CBC Routine 09/25/2024 11:55 AM EDT Cirrhosis of liver with ascites, unspecified hepatic cirrhosis type (CMS-HCC) COMPREHENSIVE METABOLIC PANEL Routine 09/25/2024 11:55 AM EDT Cirrhosis of liver with ascites, unspecified hepatic cirrhosis type (CMS-HCC) documented in this encounter Results * Urine Drug Comprehensive Panel, Confirmation (09/25/2024 11:55 AM EDT) BARBITURATES NOT PRESENT 09/29/2024 12:39 PM EDT [facility] BENZODIAZEPINES NOT PRESENT 09/30/19 12:39 PM EDT [facility] CANNABINOIDS NOT PRESENT 09/29/2024 12:39 PM EDT [facility] ROCK DRILL OPERATOR STIMULANTS NOT PRESENT 12:39 PM EDT [facility] OPIOID ANALGESICS PRESENT 025 12:39 PM EDT [facility] Tramadol >1000 ng/mL 09/29/2024 12:39 PM EDT [facility] OPIOID ANTAGONISTS NOT PRESENT 09/29 12:39 PM EDT [facility] SEDATIVES/MUSCLE RELAXANTS NOT PRESENT 09/29/2024 12:39 PM EDT [facility] TRICYCLIC ANTIDEPRESSANTS NOT PRESENT 09/29/2024 12:39 PM EDT [facility] Creatinine, Ur 122.10 mg/dL 09/26/2024 11:30 AM EDT [facility] Comment:Reference range not established for this test. pH 5.8 4.7 - 7.8 09/26/2024 11:30 AM EDT [facility] Specific [place] 1.010 1.003 - 1.035 09/26/2024 11:30 AM EDT [facility] Urine 09/25/2024 11:5 5 AM EDT 09/25/2024 12:19 PM EDT Narrative [facility] - 09/29/2024 12:39 PM EDT This test has been developed and its performance characteristics determined by [facility] which is certified under the Clinical Laboratory Improvement Amendment of 1988 (CLIA-88) to perform high complexity testing. The test has not been cleared or approved by the US Food and Drug Administration (FDA). The FDA has determined that such clearance is not necessary. The test should be used for clinical purposes and is not regarded as investigational. Chinedu Sidhu MD URINE ORDERABLES Final Result [facility] [address] [place] [address], [facility] * Phosphatidylethanol Confirmation, B (09/25/2024 11:55 AM EDT) PETH 16:0/18.1 (POPETH) <10 Cutoff: 10 ng/mL 09/29/2024 12:24 PM EDT [facility] Comment: Phosphatidylethanol (PEth) homologues result [...] days a week) (Reference: Zhanna Grayson and Dcelan Phillips 2018 J. Forensic Sci) PETH 16:0/18.2 (PLPETH) <10 Cutoff: 10 ng/mL 09/29/2024 12:24 PM EDT [facility] Comment: PEth 16:0/18:2 (PLPEth) Reference ranges are not well established PEth Interpretation Negative. 09/29 12:24 PM EDT [facility] Comment: ADDITIONAL INFORMATION This report is intended for use in clinical monitoring and management of patients. It is not intended for use in employment-related testing. This test was developed and its performance characteristics determined by [facility] in a manner consistent with CLIA requirements. This test has not been cleared or approved by the U.S. Food and Drug Administration. Test Performed by: [facility] [address] [place] [address] Physical Sciences Professor: Kathy Ortiz Ph.D.; CLIA# [id number] Whole Blood 09/25/2024 11:5 5 AM EDT 09/29/2024 12:24 PM EDT Chinedu Sidhu MD LAB BLOOD ORDERABLES Final Re sult Performing Organization Address City/[facility]/ZIP Co de Phone Number [facility] [address] [facility]. [address] * (ABNORMAL) Hepatic Function Panel (09/25/2024 11:55 AM EDT) Total Bilirubin 20.2(H) 0.0 - 1.5 mg/dL 09/25/2024 1:02 PM EDT [facility] Bilirubin, Direct 13.33(H) 0.00 - 0.40 mg/dL 09/25/2024 1:02 PM EDT [facility] AST 57(H) 13 - 39 U/L 09/25/2024 1:02 PM EDT [facility] ALT 29 7 - 52 U/L 09/25/2024 1:02 PM EDT [facility] Alkaline Phosphatase 171(H) 36 - 125 U/L 09/25/2024 1:02 PM EDT [facility] Total Protein 5.6(L) 6.4 - 8.9 g/dL 09/25/2024 1:02 PM EDT [facility] Albumin 3.5 3.5 - 5.7 g/dL 09/25/2024 1:02 PM EDT [facility] Bilirubin, Indirect 6.87(H) 0.00 - 1.10 mg/dL 09/25/2024 1:02 PM EDT [facility] Plasma 09/25/2024 11:5 5 AM EDT 09/25/2024 12:21 PM EDT us Gerri Peterson MD LAB BLOOD ORDERABLES Final Resu lt [facility] [address] [facility]. [address] * (ABNORMAL) Protime-INR (09/25/2024 11:55 AM EDT) Protime 23.6(H) 12.1 - 15.1 seconds 09/25/2024 12:46 PM EDT [facility] INR 2.0(H) 0.9 - 1.1 09/25/2024 12:46 PM EDT [facility] Comment: RECOMMENDED THERAPEUTIC RANGES USING INR : Stable oral anticoagulant therapy: 2.0 - 3.0 Mechanical prosthetic heart valve: 2.5 - 3.5 Recurrent acute myocardial infarction: 2.5 - 3.5 Plasma 09/25/2024 11:5 5 AM EDT 09/25/2024 12:20 PM EDT us Gerri Peterson MD LAB BLOOD ORDERABLES Final Resu lt [facility] [address] * (ABNORMAL) CBC (09/25/2024 11:55 AM EDT) WBC 8.2 3.8 - 10.8 10E3/uL 09/25/2024 1:43 PM EDT [facility] RBC 2.88(L) 4.20 - 5.80 10E6/uL 09/25/2024 1:43 PM EDT [facility] Hemoglobin 10.8(L) 13.2 - 17.1 g/dL 09/25/2024 1:43 PM EDT [facility] Hematocrit 29.8(L) 38.5 - 50.0 % 09/25/2024 1:43 PM EDT [facility] MCV 103.5(H) 80.0 - 100.0 fL 09/25/2024 1:43 PM EDT [facility] MCH 37.6(H) 27.0 - 33.0 pg 09/25/2024 1:43 PM EDT [facility] MCHC 36.3(H) 32.0 - 36.0 g/dL 09/25/2024 1:43 PM EDT [facility] RDW 20.1(H) 11.0 - 15.0 % 09/25/2024 1:43 PM EDT [facility] Platelets 62(L) 140 - 400 10E3/uL 09/25/2024 1:43 PM EDT [facility] Comment: _Platelets Appear Decreased Slide Reviewed for PLT Clumps. None Seen. Specimen checked for clots. None detected. MPV 8.3 7.5 - 11.5 fL 09/25/2024 1:43 PM EDT [facility] Whole Blood 09/25/2024 11:5 5 AM EDT 09/25/2024 12:20 PM EDT us Gerri Peterson MD LAB BLOOD ORDERABLES Final Resu lt [facility] [address] [facility] [place] [address], [facility] * (ABNORMAL) Comprehensive metabolic panel (09/25/2024 11:55 AM EDT) Sodium 133 133 - 146 mmol/L 09/25/2024 12:50 PM EDT [facility] Potassium 4.1 3.5 - 5.3 mmol/L 09/25/2024 12:50 PM EDT [facility] Chloride 103 98 - 110 mmol/L 09/25/2024 12:50 PM EDT [facility] CO2 18(L) 21 - 33 mmol/L 09/25/2024 12:50 PM EDT [facility] Anion Gap 12 3 - 16 mmol/L 09/25/2024 12:50 PM EDT [facility] BUN 42(H) 7 - 25 mg/dL 09/25/2024 12:50 PM EDT [facility] Creatinine 3.13(H) 0.60 - 1.30 mg/dL 09/25/2024 12:50 PM EDT [facility] Glucose 106(H) 70 - 100 mg/dL 09/25/2024 12:50 PM EDT [facility] Calcium 9.3 8.6 - 10.3 mg/dL 09/25/2024 12:50 PM EDT [facility] Total Bilirubin 20.2(H) 0.0 - 1.5 mg/dL 09/25/2024 1:02 PM EDT [facility] AST 57(H) 13 - 39 U/L 09/25/2024 1:02 PM EDT [facility] ALT 29 7 - 52 U/L 09/25/2024 1:02 PM EDT [facility] Alkaline Phosphatase 171(H) 36 - 125 U/L 09/25/2024 1:02 PM EDT [facility] Total Protein 5.6(L) 6.4 - 8.9 g/dL 09/25/2024 1:02 PM EDT [facility] Albumin 3.5 3.5 - 5.7 g/dL 09/25/2024 1:02 PM EDT [facility] Osmolality, Calculated 287 278 - 305 mOsm/kg 09/25/2024 12:50 PM EDT [facility] EGFR 25 09/25/2024 12:50 PM EDT [facility] Comment:As of 2021, the estimated [...] MD LAB BLOOD ORDERABLES Final Resu lt [facility] [address] [place] [address], [facility] documented in this encounter Visit Diagnoses Diagnosis Cirrhosis of liver with ascites, unspecified hepatic cirrhosis type (CMS-HCC) Pre-transplant evaluation for chronic liver disease Alcoholic cirrhosis of liver without ascites (CMS-HCC) Cirrhosis of liver with ascites, unspecified hepatic cirrhosis type (CMS-HCC) documented in this encounter Additional Health Concerns Infection Onset Date Last Indicated Resolved Time C. difficile 09/09/2024 09/09/2024 10/27/2024 8:30 AM EDT documented as of this encounter
--- OUTSIDE RECORDS SUMMARY | 2024-09-29 11:00 | XMS_ITS | Encounter Summary ---
Author Organization [facility] Address [address] [place] [address] Care Team Providers Care Winding Rack Operator Name Role Phone Unavailable Primary Care [...] release of HIV test results or diagnoses. [id number] Health Encounter Details Date Type Department Care Team (Late st Contact Info) Description 09/29/2024 11:00 AM EDT Office Visit [facility] Psychiatry Transplant at [facility] [address] [facility] [address] [place] [phone] Craig Warren PsyD [address] [facility] [address] [place] [address] PTSD (post-traumatic stress disorder) (Primary [...] Recorded In the past 12 months has [employer], gas, oil, or water company threatened to [...] any time in the past 12 m [facility], were you homeless or living in a long-term (including now)? No 09/05/2024 Yearly Questionnaire Answer [...] The following assessment was informed by the [place] Integrated Psychosocial Assessment for Transplant (SIP AT) and the SIPAT-General TXP Long Form ?? Tyler et al, 2008; Tyler et al, Psychosomatics 2012. Assessment Measures: Clinical Interview Patient Health Questionnaire -9 (PHQ-9) Generalized Anxiety Disorder-7 (MAGALYS-7) Timmy Cognitive Assessment (MoCA) [place]ion Integrated Psychosocial Assessment for Transplant (SIPAT) Patient [...] to his health decline. He was raised Gnosticism and denied current engagement in any community [...] elected kentrelle VIKAS and went directly to [facility] for care. Patient trusts his [...] most recent in 2023. Given distance to [facility] (~ 1.25 - 1.5 hr) and transplant [...] well as with an individual counselor, at [facility]. Alcohol use triggers identified as [...] PCP). Was established with Pain Management at [facility] under VALENTINE Rodriguez May 2024. Note [...] Description 12/05/2024 8:01 AM EDT Hospital Encounter [facility] ENDOSCOPY [address] [place] [address] Chris Orosco MD [address] [place] [phone] 12/05/2024 8:01 AM EDT - 12/05/2024 8:31 AM EDT Surgery [facility] ENDOSCOPY [address] [place] [address] Chris Orosco MD [address] [place] [phone] EGD Scheduled Procedures Name Priority Associated Diagnoses [...]
--- OUTSIDE RECORDS SUMMARY | 2024-09-29 14:20 | XMS_ITS | Encounter Summary ---
Author Organization Healthcare Address [address] [place] [address] Care Team Providers Care Reinforcing Steel Placer Name Role Phone [place], Lj Nova APRN Unavailable [phone] Enedina Mcguire APRN Primary Care Provider + Reason for Referral * Consultation (Routine) - Authorized Specialty Diagnoses / Procedures Referred By Shane t Referred To Contact Diagnoses NADIYA (acute kidney injury) (CMS/HCC) Portal hypertension (CMS/HCC) Secondary esophageal varices with bleeding (CMS/HCC) Yovanny Curran MD [address] [address] Phone: tel: fax: Referral ID Status Reason Start Date Expiration Date V isits Requested Visits Authorized [id number] Authorized 09/29/2024 03/31/2026 1 1 Reason for Visit * Reason Comments Follow-up Pt did not taken vit al sign Encounter Details Date Type Department Care Team ([facility] Contact Info) Description 09/29/2024 2:20 PM EDT Office Visit Professional [employer] [place] Nephrology, Bone & Mineral Metabolism [address] , [address] [place] [address] Yovanny Bob MD [address] [place] [address] NADIYA (acute kidney injury) (CMS/HCC) [...] answer 07/14/2024 How often do you attend [facility] or catholic services? Patient unable to answer 07/14/2024 Do you belong to any clubs o r organizations such as yarsanism groups, unions, fraternal or athletic groups, or [...] Recorded Patient Health Questionnaire-2 Score 2 09/29/2024 [facility] of Occupat ional [facility] - Occupational Stress Questionnaire Answer Date Recorded [...] any time in the past 12 m [facility], were you homeless or living [...] drink first t deborah in the morning (EYE-TIMBER SPOTTER) to steady your nerves or to get rid of a hangover? 0 07/19/2024 CAGE Questionnaire Score 2 025 Utilities Answer Date Recorded In the past 12 months has th [employer], gas, oil, or water [employer] threatened to shut off services in your [...] Patient confirms they are physically located in [place]? Yes If the patient is not physically located in [place], the provider has confirmed with [facility] thatthe provider is authorized to provide services in patient's stated location? N/A Provider Location: [facility] facility Audio and video or audio only? Audio and video Total visit time: 20 minutes HISTORY OF PRESENT ILLNESS Julien Anderson was seen in our clinic previously with/for Follow-up. As you know, patient is a 39 y.o. male who presents to the clinic today as follow up of his NADIYA. Most recently discharged on 09/09 from [facility]. Cr at time of discharge was 2.4. Cr most recently at [facility] was 3.0. On bicarb repletion. C/O [...] impressions, importance of compliance with treatment, and nursing home nature of condition. Education provided was [...] 12/01/2024 2:20 PM EDT Office Visit [facility] Nephrology, Bone & Mineral Metabolism [address], [address] [place] [address] Yovanny Curran MD [address] [place] [address] 01/08/2025 3:20 PM EDT Office Visit [facility] [address], [address] [place] [address] Vincent Braga MD [address] [place] [address] Scheduled Referrals Name Type Priority [...] documented as of this encounter Care Teams Reinforcing Steel Placer Relationship Specialty Start Date End Date Enedina Mcguire APRN [address] [place] [id number] PCP - General 12/04/22 Lj Tapia APRN [facility] [place], [place] [id number] Referring Physician Gastroenterology 07/18/22 documented as of this encounter
--- OUTSIDE RECORDS SUMMARY | 2024-10-05 23:12 | XMS_ITS | Encounter Summary ---
Author Organization [facility] Address [facility] [place] [address] Care Team Providers Care Tongue Binder Name Role Phone Enedina Mcguire NP Primary Care Provider [phone] Source Comments This information has been disclosed [...] release of HIV test results or diagnoses. [id number] Reason for Referral * Surgical (Routine) - Pending Review Specialty Diagnoses / Procedures Referred By Shane hernadez Referred To Contact Gastroenterology Diagnoses Alcoholic cirrhosis of liver with ascites (CMS-HCC) Procedures Case request GI: EGGerri Min MD [address] [place] [address] Phone: tel: fax: Referral ID Status Reason Start Date Expiration Date V isits Requested Visits Authorized [id number] Pending Review 10/08/2024 04/06/2025 1 1 Reason for Visit * Auth/Cert (Routine) Specialty Diagnoses / Procedures Referred By Shane hernadez Referred To Contact General Internal Medicine Diagnoses [facility] [address] [place] [address] Phone: tel: Referral ID Status Reason Start Date Expiration Date Visits Re quested Visits Authorized [id number] 1 1 Encounter Details Date Type Department Care Team (Latest Contact Info) Description 10/05/2024 11:12 PM EDT - 10/17/2024 10:29 AM EDT Hospital Encounter [facility] [address] [place] [id number] Angie Blanchard MD [address] [place] [address] Fouzia Rene MD [address] [place] [address] Med/[place] [address] Chelsy Lerner MD [address] [place] [address] [place] [address] Alcoholic cirrhosis of liver with [...] Recorded In the past 12 months has [employer], gas, oil, or water [employer] threatened to shut off services in your [...] in the past 12 m [facility], were you homeless or living in a [...] Home post discharge: Not Applicable Kandy BAE [facility] [phone] * William Blount MD - 10/17/2024 8:50 AM EDT [facility] Inpatient Discharge Summary Patient: Julien Gilbert Age: 39 y.o. CSN: [id number] Date of Admission: 10/05/2024 Date of Discharge: 10/17/2024 Attending Physician: Chelsy Lerner MD Primary Care Physician: Enedina Mcguire NP Diagnoses Present on Admission Past Medical History: Diagnosis Date Alcoholic cirrhosis of liver (CMS-HCC) Esophageal varices (CMS-HCC) Hepatorenal syndrome (CMS-HCC) Hypertension Other hyperlipidemia 07/26/2024 Renal cell carcinoma (CMS-HCC) Thrombocytopenia ([facility]) Thyroid disease Discharge Diagnoses Active Hospital [...] Case IDs Date Procedure Surgeon Location Status [id number] 10/10/24 EGD Lino Soto MD ENDOSCOPY Comp [id number] 10/14/24 Left Heart Cath Irving Matta MD [...] at 10/08/2024 1:12 PM EDT US Duplex Bow-Obp-Wekemic Comp Final Result IMPRESSION: ABDOMEN 1. Cirrhotic [...] 90 tablet Refills: 0 naloxone 4 mg/actuation Mcgregor Commonly known as: NARCAN Apply 1 spray [...] Your Medications These medications were sent to [facility] [address] [place] [address] Hours: Sunday - Sunday: 8:00AM - 6:00PM FLUoxetine 20 MG capsule lactulose 10 gram/15 mL solution loratadine 10 mg tablet methocarbamoL 500 MG tablet midodrine 10 MG tablet naloxone 4 mg/actuation Mcgregor oxyCODONE 5 MG immediate release tablet Discharge [...] Order Questions: Select Supplement: Boost-1 kcal/ml supplement ([facility] only) As listed above, low [...] AM EDT 10/17/2024 naloxone (NARCAN) 4 mg/actuation Mcgregor Apply 1 spray in one nostril if [...] HEPATOLOGY PROGRESS NOTE Name: Julien Gilbert CSN: [id number] Consulted by: Chelsy Lerner MD Reason for [...] Yes Past Week naloxone (NARCAN) 4 mg/actuation Mcgregor Apply 1 spray in one nostril if [...] nucleated cells, <2000 RBCs 10% Polynuclear, 90% [place] nuc. There were initial reports of gram [...] of chemical dependency treatment as outpatient. - [facility] with no obstructive coronary disease - Psych eval for PTSD With recommendation of sertraline - Given his renal dysfunction, will plan to list for [facility] when he qualifies on 10/22/2024. Labs next week - Plan for d/c today Bobby Sidhu MD Transplant Admissions Nurse Please see the body of the resident, [...] remains <30 until October 22. Waiting for [facility] today. ASSESSMENT NADIYA on CKD, last [...] Staff. Jeremiah Gamino PGY4 Nephrology. Pager no. [phone] Chief Complaint No chief complaint on file. [...] at 10/08/2024 1:12 PM EDT US Duplex Qrj-Hcn-Bpkpgsw Comp Final Result IMPRESSION: ABDOMEN 1. Cirrhotic [...] no head imaging has been performed at [facility]. -CT Head w/o contrast -Imaging showed no [...] Order Questions: Select Supplement: Boost-1 kcal/ml supplement ([facility] only) Code Status: Full Code Signed: WILLIAM BLOUNT MD 10/16/2024, 2:16 PM Cosigned by Chelsy Lerner MD at 10/16/2024 5:38 PM EDT Associated attestation - Chelsy Lerner MD - 10/16/2024 5:38 PM EDT [facility] Medicine Attending Supervision Note Julien Gilbert [...] another specialty or practice, other licensed professional (PT/OT/BOILER CONTROL TECHNICIAN/RT), or a non-medical community professional: Hepatology, Interventional [...] due to positioning during LHC on 10/14. [place] the worst in CVR, but has improved [...] Kumar, RD - 10/16/2024 1:08 PM EDT [facility] Medical Nutrition Therapy Follow-Up Diet Order/Nutrition Support: Regular diet, Boost TID - Vanilla preference Pertinent Information: This is a 39 year old male history of ETOH cirrhosis d/b HE, ascites with SBP who is admitted for AMS. Precipitant of his HE likely SBP. Diagnostic paracentesis at OSH reportedly showed 61 nucleated cells, <2000 RBCs 10% Polynuclear, 90% [place] nuc. There were initial reports of gram [...] Based on CBW of 119.5 kg Kcals/day: 3504-6373 (18-21 kcals/kg) Protein g/day: 119-143 (1-1.2 g/kg) [...] Kumar RD, LD Clinical Dietitian Contact via [employer] * Jerad Hughes MD - 10/16/2024 11:03 AM EDT [facility] HEPATOLOGY PROGRESS NOTE Name: Julien Gilbert CSN: [id number] Consulted by: Chelsy Lerner MD Reason for [...] nucleated cells, <2000 RBCs 10% Polynuclear, 90% [place] nuc. There were initial reports of gram [...] of chemical dependency treatment as outpatient. - [facility] with no obstructive coronary disease - Psych eval for PTSD With recommendation of sertraline - Given his renal dysfunction, will plan to list for [facility] when he qualifies on 10/22/2024. - Will follow Bobby Sidhu MD Transplant Admissions Nurse Please see the body of the resident, [...] remains <30 until October 22. Waiting for [facility] today. ASSESSMENT NADIYA on CKD, last [...] COMMENT on 10/08/2024 Iron%- Iron replete PLAN -[facility] yesterday- patient remains at risk of contrast related injury on top of exisiting NADIYA for 24-48 hrs after contrast load. -He is volume overloaded -patient needs to follow up closely with nephrology after discharge Thank you for allowing us to participate in this patient's care. Discussed with Consult Staff. eJremiah Gamino PGY4 Nephrology. Pager no. [phone] Chief Complaint No chief complaint on file. [...] at 10/08/2024 1:12 PM EDT US Duplex Ngg-Vtn-Totbezt Comp Final Result IMPRESSION: ABDOMEN 1. Cirrhotic [...] no head imaging has been performed at [facility]. -CT Head w/o contrast -Imaging showed no [...] Order Questions: Select Supplement: Boost-1 kcal/ml supplement ([facility] only) Code Status: Full Code Signed: WILLIAM BLOUNT MD 10/15/2024, 10:49 AM Cosigned by Chelsy Lerner MD at 10/15/2024 2:47 PM EDT Associated attestation - Chelsy Lerner MD - 10/15/2024 2:47 PM EDT [facility] Medicine Attending Supervision Note Julien Gilbert [...] another specialty or practice, other licensed professional (PT/OT/BOILER CONTROL TECHNICIAN/RT), or a non-medical community professional: Hepatology, Interventional [...] due to positioning during LHC on 10/14. [place] the worst in CVR, but has improved [...] HEPATOLOGY PROGRESS NOTE Name: Julien Gilbert CSN: [id number] Consulted by: Chelsy Lerner MD Reason for [...] nucleated cells, <2000 RBCs 10% Polynuclear, 90% [place] nuc. There were initial reports of gram [...] - Will follow Bobby Sidhu MD Transplant Admissions Nurse Please see the body of the resident, [...] Quan MD - 10/14/2024 2:34 PM EDT [facility] Department of Cardiovascular Health and Diseases [...] remains <30 until October 22. Waiting for [facility] today. ASSESSMENT NADIYA on CKD, last [...] COMMENT on 10/08/2024 Iron%- Iron replete PLAN -[facility] today -pt is volume up slightly -standing weights daily -c.w sodium bicarb tablets -discssed with the patient anad family about risk of needing HD after [facility] Thank you for allowing us to participate in this patient's care. Discussed with Consult Staff. Jeremiah Gamino PGY4 Nephrology. Pager no. [phone] Chief Complaint No chief complaint on file. [...] is Acute kidney injury superimposed on CKD ([facility]). No acute events overnight. Pt with [...] at 10/08/2024 1:12 PM EDT US Duplex Hdg-Doa-Ehjzjdl Comp Final Result IMPRESSION: ABDOMEN 1. Cirrhotic [...] not tolerate Stress ECHO on 10/09 - [facility] today -Per GI recs, started on [...] no head imaging has been performed at [facility]. -CT Head w/o contrast -Imaging showed no [...] never required dialysis. Patient is going for [facility] today and will receive contrast, okay [...] Order Questions: Select Supplement: Boost-1 kcal/ml supplement ([facility] only) Code Status: Full Code Signed: WILLIAM BLOUNT MD 10/14/2024, 10:26 AM Cosigned by Chelsy Lerner MD at 10/14/2024 11:53 AM EDT Associated attestation - Chelsy Lerner MD - 10/14/2024 11:53 AM EDT [facility] Medicine Attending Supervision Note Julien Gilbert [...] another specialty or practice, other licensed professional (PT/OT/BOILER CONTROL TECHNICIAN/RT), or a non-medical community professional: Hepatology, Interventional [...] HEPATOLOGY PROGRESS NOTE Name: Julien Gilbert CSN: [id number] Consulted by: Chelsy Lerner MD Reason for [...] nucleated cells, <2000 RBCs 10% Polynuclear, 90% [place] nuc. There were initial reports of gram [...] eval ongoing. Transplant work up ongoing - [facility] today - Transplant nephrology following for [...] - Will follow Bobby Sidhu MD Transplant Admissions Nurse Please see the body of the resident, [...] Staff. Jeremiah Gamino PGY4 Nephrology. Pager no. [phone] Chief Complaint No chief complaint on file. [...] HEPATOLOGY PROGRESS NOTE Name: Julien Gilbert CSN: [id number] Consulted by: Fouzia Rene MD Reason for [...] of liver (CMS-HCC) Alcoholic hepatitis Esophageal varices ([facility]) Hepatorenal syndrome ([facility]) Hypertension Other hyperlipidemia 07/26/2024 Renal cell [...] nucleated cells, <2000 RBCs 10% Polynuclear, 90% [place] nuc. There were initial reports of gram [...] eval ongoing. Transplant work up ongoing - [facility] today - Transplant nephrology following for [...] - Will follow Bobby Sidhu MD Transplant Admissions Nurse Please see the body of the resident, [...] interval liver pathology. * Rebekah Linares, [facility] - 10/13/2024 12:30 PM EDT Start [...] psychomotor abnormalities Cognition: short term and terminal system operator memory intact Attitude: cooperative Affect: full [...] Fabian, RD - 10/13/2024 10:49 AM EDT [facility] Medical Nutrition Therapy Reason(s) for Completion: [...] Order Questions: Select Supplement: Boost-1 kcal/ml supplement ([facility] only) Pertinent Information: Julien Gilbert is a 39 y.o. Male admitted for Acute kidney injury superimposedon CKD ([facility]) Pt noted to have waxing and [...] kg) Body mass index is 32.07 kg/m??. [place] Body Weight: 202 lbs (91.8 kg) +/- 10% Weight History: Wt Readings from Last 10 Encounters: 10/10/24 (!) 263 lb 8 oz (119.5 kg) 09/05/24 (!) 262 lb 9.6 oz (119.1 kg) 09/02/24 (!) 258 lb (117 kg) 08/17/24 (!) 242 lb 11.2 oz (110.1 kg) 07/28/24 (!) 245 lb (111.1 kg) Estimated Nutrition Needs: Based on CBW of 119.5 kg Kcals/day: 2078-1051 (18-21 kcals/kg) Protein g/day: 119-143 (1-1-2 g/kg) [...] Dietitian - Solid Organ Transplant Contact via [employer] * Eileen Schroeder MD, PhD - [...] at 10/08/2024 1:12 PM EDT US Duplex Mid-Hhi-Wjflyca Comp Final Result IMPRESSION: ABDOMEN 1. Cirrhotic [...] no head imaging has been performed at [facility]. -CT Head w/o contrast -Imaging showed no [...] Order Questions: Select Supplement: Boost-1 kcal/ml supplement ([facility] only) Code Status: Full Code [...] reviewed the documentation by the medical steam clean machine operator and agree as documented. Any additions or [...] was non-diagnostic due to hypotension. Plan for [facility] today, but now moved to tomorrow. [...] when medically ready. Consider d/c home after [facility] tomorrow. FOUZIA RENE MD Attending Physician Department of Internal Medicine 10/13/2024 Medical Decision Making: // LEVEL 2 MOD One chronic illness with exacerbation, progression, or side effects of treatment Discussed with physician/SAWYER from another specialty or practice, other licensed professional (PT/OT/BOILER CONTROL TECHNICIAN/RT), or a non-medical community professional: Nephrology, Hepatology [...] at 10/08/2024 1:12 PM EDT US Duplex Pwj-Vex-Frypowe Comp Final Result IMPRESSION: ABDOMEN 1. Cirrhotic [...] no head imaging has been performed at [facility]. -CT Head w/o contrast -Imaging showed no [...] Order Questions: Select Supplement: Boost-1 kcal/ml supplement ([facility] only) Code Status: Full Code [...] reviewed the documentation by the medical steam clean machine operator and agree as documented. Any additions or clarifications are listed below. Daily plan was discussed with patient at bedside and questions addressed. Patient ID: Julien Gilbert is a 39 y.o. male currently admitted for Acute kidney injury superimposed on CKD ([facility]) Supplemental History/ ROS: No acute events [...] was non-diagnostic due to hypotension. Plan for [facility] tomorrow. - EGD completed. - Imaging [...] reflux disease) Anemia SBP (spontaneous bacterial peritonitis) ([facility]) Neck pain with history of cervical [...] another specialty or practice, other licensed professional (PT/OT/BOILER CONTROL TECHNICIAN/RT), or a non-medical community professional: Nephrology, Hepatology [...] tid. cardiac workup pre txp. pLan for [facility] Sunday Liver transplant workup per GI/ [...] for hepatorenal syndrome.` Patient came from [facility], paracentesis was performed yesterday on 10/05? [...] 706.9 (H) 10/08/2024 No results found for: [id number] , FOLATE Lab Results Component Value Date [...] CRUR No results found for: MICROALBUR , [id number] In addition to the above an extensive [...] 4.6 10/12/2024 Lab Results Component Value Date JFGU82C 7.1 (L) 10/08/2024 PLAN Monitor renal panel [...] AM Colten Huertas MD, KISHOR LIN FNKF longwall machine operator helper Div. of Nephrology [facility] E-mail: [email or web address] This note was completely edited, written [...] Rene MD Interval hx No issues. Pending [facility]. Assessment: Renal Function: Cr: 2.77 Bun: [...] for hepatorenal syndrome.` Patient came from [facility], paracentesis was performed yesterday on 10/05? [...] 706.9 (H) 10/08/2024 No results found for: [id number] , FOLATE Lab Results Component Value Date [...] CRUR No results found for: MICROALSERGIO , [id number] In addition to the above an extensive [...] 3.5 10/11/2024 Lab Results Component Value Date XZCF91G 7.1 (L) 10/08/2024 PLAN Monitor renal panel [...] AM Colten Huertas MD, DELIA, KISHOR, FNKF longwall machine operator helper Div. of Nephrology [facility] E-mail: [email or web address] This note was completely edited, written [...] is Acute kidney injury superimposed on CKD ([facility]). NAEON Pt felt much better today. [...] at 10/08/2024 1:12 PM EDT US Duplex Oux-Efg-Lhkmvoa Comp Final Result IMPRESSION: ABDOMEN 1. Cirrhotic [...] from outside facility. Will engage with them daily([phone]. Ask to speak to a tech) about [...] no head imaging has been performed at [facility]. -CT Head w/o contrast -Imaging showed no [...] Order Questions: Select Supplement: Boost-1 kcal/ml supplement ([facility] only) Code Status: Full Code [...] reviewed the documentation by the medical steam clean machine operator and agree as documented. Any additions or clarifications are listed below. Daily plan was discussed with patient at bedside and questions addressed. Patient ID: Julien Gilbert is a 39 y.o. male currently admitted for Acute kidney injury superimposed on CKD ([facility]) Supplemental History/ ROS: No acute events [...] another specialty or practice, other licensed professional (PT/OT/BOILER CONTROL TECHNICIAN/RT), or a non-medical community professional: Nephrology, Hepatology, [...] Strictly monitor urine output No Indication for MANUFACTURER 3. Not a candidate for terlipressin per [...] Ignacio Queen MD Renal Fellow Pager # [phone] Chief Complaint No chief complaint on file. [...] for hepatorenal syndrome.` Patient came from [facility], paracentesis was performed yesterday on 10/05? [...] PHOS -- < > 3.5 3.4 3.3 VRET59D 7.1* -- -- -- -- < > = values in this interval not displayed. Lab Results Component Value Date IRON 81 10/08/2024 TIBC SEE COMMENT 10/08/2024 FERRITIN 706.9 (H) 10/08/2024 No results found for: [id number] , FOLATE Lab Results Component Value Date [...] CRUR No results found for: MICROALBUR , [id number] In addition to the above an extensive [...] 3.3 10/10/2024 Lab Results Component Value Date IBZR08E 7.1 (L) 10/08/2024 PLAN Continue IV albumin [...] AM Colten Huertas MD, KISHOR LIN FNKF longwall machine operator helper Div. of Nephrology [facility] E-mail: [email or web address] This note was completely edited, written [...] to follow pt while pt is at [facility]. * Jodi Ortiz PharmD - 10/10/2024 10:27 AM EDT Clinical Pharmacy Service: Vancomycin Consult Progress Note Patient has been transitioned off of vancomycin therapy per team notes and orders. Pharmacy will sign-off at this time, please do not hesitate to consult again as needs arise. Thank you for involving pharmacy in the care of this patient. Jodi Ortiz PharmD Clinical Inspector Balance Truing, Internal Medicine Preferred contact: [email or web address] Clinical Bsopzfy-Mx-Gddu Pager: [phone] October 10, 2024 10:27 AM Laboratory Data [...] 10/07/2024 10:50 PM Giardia Cryptosporidium Antigens Final [id number] 10/07/2024 10:50 PM Ova and Parasite Comprehensive w/ Giardia/Crypto Final [id number] Feces 10/06/2024 1:04 AM #2 Blood culture-Peripheral site 2 Preliminary [id number] Peripheral 10/06/2024 1:04 AM #1 Blood culture-Peripheral site 1 Preliminary [id number] Peripheral Pharmacokinetics Lab Results (Last 7 days) Today 0523 Yesterday 0459 10/08 0536 [facility] Rdm 16.4 11.0 16.0 * Gerri Peterson MD - 10/10/2024 10:09 AM EDT [facility] HEPATOLOGY PROGRESS NOTE Name: Julien Gilbert CSN: [id number] Consulted by: Fouzia Rene MD Reason for [...] nucleated cells, <2000 RBCs 10% Polynuclear, 90% [place] nuc. Per OSH reports, ascitic fluid cultures [...] from the original note were not included. [facility] Clinical Pharmacy Service: Vancomycin Monitoring [...] in sodium chloride 0.9 % 250 mL Kjmk3Jah (Completed) 1,500 mg Once 10/09/2024 10/09/2024 Admin Instructions: Contact pharmacy if there is a question/concern of whether vancomycin should begiven based on serum drug levels. Use Jywt3Gcs Adapter - Mix Thoroughly Before Administration Route: Intravenous vancomycin (VANCOCIN) 1,500 mg in sodium chloride 0.9 % 250 mL Pgih1Jxi 1,500 mg Once 10/10/2024 10/11/2024 Admin Instructions: Contact pharmacy if there is a question/concern of whether vancomycin should begiven based on serum drug levels. Use Dhve4Yws Adapter - Mix Thoroughly Before Administration Route: [...] in sodium chloride 0.9 % 250 mL Ocbc9Nfm 1,500 mg 166.7 mL/hr 10/08/24 1259 New Bag vancomycin (VANCOCIN) 1,000 mg in sodium chloride 0.9 % 250 mL Rhqi2Iro 1,000 mg 250 mL/hr --Objective Data-- Vitals: [...] 53 53 54 Creatinine 2.85 2.89 3.04 [place] body weight: 86.8 kg (191 lb 5.7 oz) Adjusted ideal body weight: 99.9 kg (220 lb 3.5 oz) Estimated CrCl: ~35-45 mL/min --Cultures-- Microbiology Results Date and Time Order Name Sensitivity Status Organisms Specimen ID Source 10/07/2024 10:50 PM Giardia Cryptosporidium Antigens Final [id number] 10/07/2024 10:50 PM Ova and Parasite Comprehensive w/ Giardia/Crypto Final [id number] Feces 10/06/2024 1:04 AM #2 Blood culture-Peripheral site 2 Preliminary [id number] Peripheral 10/06/2024 1:04 AM #1 Blood culture-Peripheral site 1 Preliminary [id number] Peripheral --Vancomycin Concentrations-- Lab Results (Last 7 [...] for the consult. Jodi Ortiz, PharmD Clinical Inspector Balance Truing, Internal Medicine Preferred contact: [email or web address] Clinical Esiwqeo-My-Kcej Pager: [phone] October 10, 2024 9:13 AM * Eileen [...] at 10/08/2024 1:12 PM EDT US Duplex Bft-Fjb-Ctzjmtb Comp Final Result IMPRESSION: ABDOMEN 1. Cirrhotic [...] from outside facility. Will engage with them daily([phone]. Ask to speak to a tech) about [...] no head imaging has been performed at [facility]. -CT Head w/o contrast -Imaging showed no [...] Order Questions: Select Supplement: Boost-1 kcal/ml supplement ([facility] only) Code Status: Full Code [...] reviewed the documentation by the medical steam clean machine operator and agree as documented. Any additions or clarifications are listed below. Daily plan was discussed with patient at bedside and questions addressed. Patient ID: Julien Gilbert is a 39 y.o. male currently admitted for Acute kidney injury superimposed on CKD ([facility]) Supplemental History/ ROS: No acute events [...] for Acute kidney injury superimposed on CKD ([facility]) Active Problems: Spontaneous Bacterial Peritonitis ([facility]): Cultures from OSH were reported as [...] Continue home lactulose and rifaximin Decompensated cirrhosis ([facility]): Appreciate hepatology consult. He has started [...] IR. NADIYA (acute kidney injury) on CKD ([facility] Appreciate nephrology consult. Likely due to hepatorenal syndrome. S/p albumin X3. baseline creatinine presumed to be around 2.5. Creatinine slowly improving. We will continue to monitor. Electrolyte derangements: Replete as needed Neck Pain: He has a history of cervical surgery. Continue oxycodone as needed for pain. Continue tomonitor. Principal Problem: Acute kidney injury superimposed on CKD ([facility] [facility]) Active Problems: Decompensated cirrhosis ([facility]) Metabolic encephalopathy Thrombocytopenia ([facility]) Renal mass, left Metabolic acidosis with normal anion gap and bicarbonate losses GERD (gastroesophageal reflux disease) Anemia SBP (spontaneous bacterial peritonitis) ([facility]) Neck pain with history of cervical [...] another specialty or practice, other licensed professional (PT/OT/BOILER CONTROL TECHNICIAN/RT), or a non-medical community professional: Nephrology, Hepatology, [...] Strictly monitor urine output No Indication for MANUFACTURER Not a candidate for terlipressin per liver due to HE, liver and kidney failure, on midodrine tid. Considering para today, cardiac workup pre txp Liver transplant workup per GI/ Primary team, considering for SLK, seen by renal transplant team Thank you for allowing us to participate in this patient's care. Discussed with Consult Staff. Ignacio Queen MD Renal Fellow Pager # [phone] Chief Complaint No chief complaint on file. [...] for hepatorenal syndrome.` Patient came from [facility], paracentesis was performed yesterday on 10/05? [...] 9.0 9.3 PHOS -- 3.5 3.5 3.4 LUIJ60N 7.1* -- -- -- Lab Results Component Value Date IRON 81 10/08/2024 TIBC SEE COMMENT 10/08/2024 FERRITIN 706.9 (H) 10/08/2024 No results found for: [id number] , FOLATE Lab Results Component Value Date [...] CRUR No results found for: MICROALBUR , [id number] In addition to the above an extensive [...] 3.4 10/09/2024 Lab Results Component Value Date CTCP00S 7.1 (L) 10/08/2024 PLAN Continue IV albumin [...] PM Colten Huertas MD, KISHOR LIN FNKF longwall machine operator helper Div. of Nephrology [facility] E-mail: [email or web address] This note was completely edited, written [...] HEPATOLOGY PROGRESS NOTE Name: Julien Gilbert CSN: [id number] Consulted by: Fouzia Rene MD Reason for [...] nucleated cells, <2000 RBCs 10% Polynuclear, 90% [place] nuc. Fluid cultures reportedly grew gram + [...] from the original note were not included. [facility] Clinical Pharmacy Service: Vancomycin Monitoring [...] in sodium chloride 0.9 % 250 mL Lgyp4Ayq (Completed) 1,000 mg Once 10/08/2024 10/08/2024 Admin Instructions: Contact pharmacy if there is a question/concern of whether vancomycin should begiven based on serum drug levels. Use Zckx1Hhu Adapter - Mix Thoroughly Before Administration Route: Intravenous vancomycin (VANCOCIN) 1,500 mg in sodium chloride 0.9 % 250 mL Qdik6Fdg 1,500 mg Once 10/09/2024 10/10/2024 Admin Instructions: Contact pharmacy if there is a question/concern of whether vancomycin should begiven based on serum drug levels. Use Cpvi9Yhc Adapter - Mix Thoroughly Before Administration Route: [...] in sodium chloride 0.9 % 250 mL Iiir4Mzp 1,000 mg 250 mL/hr 10/06/24 1413 New [...] 10/07/2024 10:50 PM Giardia Cryptosporidium Antigens Final [id number] 10/07/2024 10:50 PM Ova and Parasite Comprehensive w/ Giardia/Crypto Final [id number] Feces 10/06/2024 1:04 AM #2 Blood culture-Peripheral site 2 Preliminary [id number] Peripheral 10/06/2024 1:04 AM #1 Blood culture-Peripheral site 1 Preliminary [id number] Peripheral --Vancomycin Concentrations-- Lab Results (Last 7 [...] for the consult. Jodi Ortiz PharmD Clinical Inspector Balance Truing, Internal Medicine Preferred contact: [email or web address] Clinical Qwrbyyq-Zm-Osna Pager: [phone] October 09, 2024 8:29 AM * Eileen [...] at 10/08/2024 1:12 PM EDT US Duplex Iej-Hqw-Atkpzqt Comp Final Result IMPRESSION: ABDOMEN 1. Cirrhotic [...] from outside facility. Will engage with them daily([phone]. Ask to speak to a tech) about [...] no head imaging has been performed at [facility]. -CT Head w/o contrast -Imaging showed no [...] Order Questions: Select Supplement: Boost-1 kcal/ml supplement ([facility] only) Code Status: Full Code [...] reviewed the documentation by the medical steam clean machine operator and agree as documented. Any additions or clarifications are listed below. Daily plan was discussed with patient at bedside and questions addressed. Patient ID: Julien Gilbert is a 39 y.o. male currently admitted for Acute kidney injury superimposed on CKD ([facility]) Supplemental History/ ROS: No acute events [...] for Acute kidney injury superimposed on CKD ([facility]) Active Problems: Anemia: S/p 1 unit PRBC from yesterday. Hemoglobin responded appropriately and remained stable. Will continue to monitor. Metabolic encephalopathy: Mostly resolved. Likely related to combination of hepatic, metabolic, andpossibly infectious insults. - Continue home lactulose and rifaximin Spontaneous Bacterial Peritonitis ([facility]): Cultures from OSH are growing gram- positive organisms.We continue to await speciation. He remains afebrile and vital signs have been stable. - Continue vancomycin and ceftriaxone for now. - Will follow-up on speciation and sensitivities. Decompensated cirrhosis ([facility]): Appreciate hepatology consult. He has started [...] another specialty or practice, other licensed professional (PT/OT/BOILER CONTROL TECHNICIAN/RT), or a non-medical community professional: Nephrology, Hepatology Labs reviewed (1 pt each): CBC, CMP, INR & other daily labs Review of notes from a different specialty or different practice: Nephrology, Anesthesiology hepatology, * Gerri Peterson MD - 10/08/2024 1:40 PM EDT [facility] HEPATOLOGY PROGRESS NOTE Name: Julien Gilbert CSN: [id number] Consulted by: Fouzia Rene MD Reason for [...] nucleated cells, <2000 RBCs 10% Polynuclear, 90% [place] nuc. Fluid cultures reportedly grew gram + [...] disease (ESRD) patient in a hospital based, [facility]-hospital based, or home setting. -At the [...] on iHD In the event that Julien Gilebrt becomes ineligible for a liver transplant, he [...] from the original note were not included. [facility] Clinical Pharmacy Service: Vancomycin Monitoring [...] in sodium chloride 0.9 % 250 mL Miba3Kgv 1,000 mg Once 10/08/2024 10/09/2024 Admin Instructions: Contact pharmacy if there is a question/concern of whether vancomycin should begiven based on serum drug levels. Use Rqii2Oqx Adapter - Mix Thoroughly Before Administration Route: [...] 10/07/2024 10:50 PM Giardia Cryptosporidium Antigens Final [id number] 10/07/2024 10:50 PM Ova and Parasite Comprehensive w/ Giardia/Crypto In process [id number] Feces 10/06/2024 1:04 AM #2 Blood culture-Peripheral site 2 Preliminary [id number] Peripheral 10/06/2024 1:04 AM #1 Blood culture-Peripheral site 1 Preliminary [id number] Peripheral --Vancomycin Concentrations-- Lab Results (Last 7 [...] for the consult. Jodi Ortiz PharmD Clinical Inspector Balance Truing, Internal Medicine Preferred contact: [email or web address] Clinical Eizxpch-Rm-Bwpz Pager: [phone] October 08, 2024 9:13 AM * Eileen [...] FREET4 0.74 09/03/2024 Diagnostic Studies US Duplex Mqg-Smq-Ngswsra Comp Final Result IMPRESSION: ABDOMEN 1. Cirrhotic [...] similar to prior. Report Verified by: Alberto Rodriugez MD at 10/07/2024 4:[address] [...] no head imaging has been performed at [facility]. -CT Head w/o contrast -Imaging showed no [...] Order Questions: Select Supplement: Boost-1 kcal/ml supplement ([facility] only) Code Status: Full Code [...] reviewed the documentation by the medical steam clean machine operator and agree as documented. Any additions or [...] home lactulose and rifaximin Spontaneous Bacterial Peritonitis ([facility]): Cultures from OSH are growing gram- positive organisms.We continue to await speciation. He remains afebrile and vital signs have been stable. - Continue vancomycin and ceftriaxone for now. - Will follow-up on speciation and sensitivities. Decompensated cirrhosis ([facility]): Appreciate hepatology consult. He has started [...] tomorrow NADIYA (acute kidney injury) on CKD ([facility]): Appreciate nephrology consult. Likely has hepatorenal [...] Problem: Metabolic encephalopathy Active Problems: Decompensated cirrhosis ([facility]) Acute kidney injury superimposed on CKD ([facility]) Thrombocytopenia ([facility]) Renal mass, left Metabolic acidosis with normal anion gap and bicarbonate losses GERD (gastroesophageal reflux disease) Anemia SBP (spontaneous bacterial peritonitis) ([facility]) Neck pain with history of cervical [...] another specialty or practice, other licensed professional (PT/OT/BOILER CONTROL TECHNICIAN/RT), or a non-medical community professional: Nephrology, Hepatology [...] Strictly monitor urine output No Indication for MANUFACTURER Not a candidate for terlipressin per liver due to HE, liver ans kidney failure, on midodrine tid Liver transplant workup per GI/ Primary team, considering for SLK Thank you for allowing us to participate in this patient's care. Discussed with Consult Staff. Ignacio Queen MD Renal Fellow Pager # [phone] Chief Complaint No chief complaint on file. [...] for hepatorenal syndrome.` Patient came from [facility], paracentesis was performed yesterday on 10/05? [...] TIBC , FERRITIN No results found for: [id number] , FOLATE Lab Results Component Value Date [...] <15 No results found for: MICROALBUR , [id number] In addition to the above an extensive [...] 4.0 10/08/2024 Lab Results Component Value Date UMVY15L 7.1 (L) 10/08/2024 PLAN Continue IV albumin [...] AM Colten Huertas MD, KISHOR LIN FNKF longwall machine operator helper Div. of Nephrology [facility] E-mail: [email or web address] This note was completely edited, written [...] from the original note were not included. [facility] Clinical Pharmacy Service: Vancomycin Monitoring [...] AM #2 Blood culture-Peripheral site 2 Preliminary [id number] Peripheral 10/06/2024 1:04 AM #1 Blood culture-Peripheral site 1 Preliminary [id number] Peripheral --Vancomycin Concentrations-- Lab Results (Last 7 [...] for the consult. Jodi Ortiz PharmD Clinical Inspector Balance Truing, Internal Medicine Preferred contact: [email or web address] Clinical Dzbbxvr-Ky-Kmdf Pager: [phone] October 07, 2024 5:01 PM * Yamile Paige, PT - 10/07/2024 11:45 AM EDT Physical Therapy Initial Assessment and Discharge Name: Julien Gilbert : 1985 Attending Physician: Fouzia Rene MD Admission Diagnosis: AMS Date: 10/07/2024 Room: [facility] Reviewed Pertinent hospital course: Yes Hospital Course [...] HEPATOLOGY PROGRESS NOTE Name: Julien Gilbert CSN: [id number] Consulted by: Fouzia Rene MD Reason for [...] nucleated cells, <2000 RBCs 10% Polynuclear, 90% [place] nuc. Fluid cultures reportedly grewgram + rods. [...] in liver selection meeting and clearance by director of social media marketing. Please order CT cardiac coronary evaluation, transplant [...] Strictly monitor urine output No Indication for MANUFACTURER Liver transplant workup per GI/ Primary team Thank you for allowing us to participate in this patient's care. Discussed with Consult Staff. Ignacio Queen MD Renal Fellow Pager # [phone] Chief Complaint No chief complaint on file. [...] for hepatorenal syndrome.` Patient came from [facility], paracentesis was performed yesterday on 10/05? [...] TIBC , FERRITIN No results found for: ASGXEMDY29 , FOLATE Lab Results Component Value Date [...] <15 No results found for: MICROALBUR , [id number] In addition to the above an extensive [...] PM EDT ATTESTATION I saw Mr/Ms Julien Gilebrt with renal fellow / consult team I [...] PHOS 4.2 10/07/2024 No results found for: FNRE20K PLAN Continue IV albumin Monitor renal panel [...] AM Colten Huertas MD, KISHOR LIN FNKF longwall machine operator helper Div. of Nephrology [facility] E-mail: [email or web address] * Carmen Bernal OT - 10/07/2024 [...] at 10/06/2024 2:33 AM EDT US Duplex Mhh-Khc-Zyaplyp Comp (Results Pending) US Abdomen Complete (Results [...] no head imaging has been performed at [facility]. -CT Head w/o contrast -Imaging showed no [...] Order Questions: Select Supplement: Boost-1 kcal/ml supplement ([facility] only) Code Status: Full Code [...] reviewed the documentation by the medical steam clean machine operator and agree as documented. Any additions or [...] and mental status is improving. Decompensated cirrhosis ([facility]): Appreciate hepatology consult. He has started his transplant evaluation as an outpatient. We will follow-up with hepatology to discuss any inpatient testing that may need to be needed. - MELD labs daily - Continue home regimen with ursodiol, rifaximin and lactulose NADIYA (acute kidney injury) ([facility]): Appreciate nephrology consult. Likely has hepatorenal [...] needed for pain. Continue to monitor. Thrombocytopenia ([facility]) Renal mass, left CKD (chronic kidney disease) stage 4, GFR 15-29 ml/min ([facility] Metabolic acidosis with normal anion gap and [...] another specialty or practice, other licensed professional (PT/OT/BOILER CONTROL TECHNICIAN/RT), or a non-medical community professional: Nephrology, Hepatology Labs reviewed (1 pt each): CMP, CBC Test results reviewed (1 pt each): CXR, Head CT Review of notes from a different specialty or different practice: Nephrology, hepatology Use of parenteral controlled substances * Kiet Gardiner, PharmD - 10/06/2024 1:07 PM EDT Images from the original note were not included. [facility] Clinical Pharmacy Service: Vancomycin Monitoring [...] AM #2 Blood culture-Peripheral site 2 Preliminary [id number] Peripheral 10/06/2024 1:04 AM #1 Blood culture-Peripheral site 1 Preliminary [id number] Peripheral --Vancomycin Concentrations-- Lab Results (Last 7 [...] US Retroperitoneal complete (Results Pending) US Duplex Tpv-Fag-Ldwyjcv Comp (Results Pending) CT Head WO contrast [...] PM EDT Hospital Medicine Attending Supervision Note [facility] // [facility] Julien Gilbert was seen 10/06/24 on [...] Lerner MD - 10/05/2024 2:42 PM EDT [facility] Department of Medicine TRANSFER CALL NOTE Location [facility] ED History of Present Illness Julien Gilbert [...] nearest ED, with plan to transfer to [facility] if needing admission. In the [...] Studies: Na 129 K 4.2 Cl 101 Qzjeku84 BUN 62 (up from baseline) Cr 3.6 [...] Quan MD - 10/14/2024 1:10 PM EDT [facility] PRE-SEDATION ASSESSMENT, HISTORY & PHYSICAL Date: [...] Neuro: AOx3 AUC For Cath Indication(s) for Stand Up Comedian Visit: Visit Indicators: Suspected CAD 2. Chest Pain Symptom Assessment: Asymptomatic 3. Heart Failure: Yes Class II 4. [facility] Clinical Frailty Scale: Mildly Frail Sedation Plan: Moderate Sedation with Local Anesthesia Antibiotic prophylaxis is not indicated. Mani Quan Interventional Asbestos Wire Finisher Pager: [phone] [1] Patient Active Problem List Diagnosis Decompensated [...] Peterson MD - 10/10/2024 10:05 AM EDT [facility] PRE-SEDATION ASSESSMENT, HISTORY & PHYSICAL Date: [...] Low Risk (07/09/2024) Received from [facility] Overall Financial Resource Strain (CARDIA) Difficulty [...] No Physical Activity: Unknown (07/14/2024) Received from [facility] Exercise Vital Sign Days of Exercise per Week: Patient unable to answer Minutes of Exercise per Session: Not on file Stress: Patient Unable To Answer (07/14/2024) Received from [facility] [place] of Occupational Health - Occupational Stress Questionnaire Feeling of Stress : Patient unable to answer Social Connections: Patient Unable To Answer (07/14/2024) Received from [facility] Social Connection and Isolation Panel [NHANES] Frequency of Communication with Friends and Family: Patient unable to answer Frequency of Social Gatherings with Friends and Family: Patient unable to answer Attends [employer] Services: Patient unable to answer Active Member [...] values in this interval not displayed. Imaging: @ACHOPYP32KF@ I have personally reviewed the imaging and have noted the following: Large recanalized umbilical vein Perihilar varices Replaced right hepatic artery Splenomegaly Spontaneous splenorenal shunt Large volume ascites, No portal vein thrombosis Assessment/Plan: A 39 y.o. male with ETOH decompensated by ascites, hepatic encephalopathy,bleeding esophageal Varices. Use and allocation of SCD, SERVICE GIRL, DCD and LDLT allografts discussed in detail. [...] surgery (5%). I also explained the terminal system operator risks of transplantation and immunosuppression including viral infection and cancer both solid organand lymphoma. Kemar Sahni MD, Fellow, Multiorgan Abdominal Transplant Surgery. [facility]. 10/09/2024 3:16 PM [1] Allergies Allergen [...] Ortiz MD - 10/06/2024 12:00 AM EDT [facility] Internal Medicine - History and Physical [...] taken to Radiology overnight for imaging upload. [facility] performed a bedside paracentesis and sent studies for SBP analysis. [facility] to see if labs have resulted. Review of Systems 14 pt ROS conducted and negative aside from that mentioned in above HPI Past Medical and Social History Lives in [place], [place] at bedside Notes that the patient [...] OSH Repeat labs pending on admission to [facility] Assessment & Plan Julien Gilbert [...] AM EDT Hospital Medicine Attending Supervision Note [facility] // [facility] Julien Gilbert was seen 10/06/24 on [...] confusion and lethargy. HE was seen at [facility] ED were CT head unremarkable and RUQ with gallstones, abdominal ascites diagnostic para done and started on empiric CTX. Labs remarkable at OSH for K 4.2 Cl 101 Kiztbl07 BUN 62 (up from baseline) Cr 3.6 [...] another specialty or practice, other licensed professional (PT/OT/BOILER CONTROL TECHNICIAN/RT), or a non-medical community professional: ed team [...] Medicine Department of Internal Medicine Pager ID: [phone] 6:04 AM, 10/06/2024 documented in this encounter [...] CNP Vascular & Interventional Radiology 10/10/2024,1:55 PM [facility]: [phone]) * Lino Soto MD - 10/10/2024 12:06 PM EDT EGD Brief Op Note Julien Gilbert 10/05/2024 - 10/10/2024 Pre-op Diagnosis: Alcoholic cirrhosis of liver with ascites (CMS-HCC) [K70.31] Post-op Diagnosis: Portal gastropathy, Medium size, non-bleeding esophageal varices Procedure(s): EGD Surgeon(s): Lino Soto MD Anesthesia: MAC (Monitor Anesthesia Care) Staff: Fellow: Gerri Peterson MD Endoscopy Nurse: Kandice Castaneda, RN Experimental Preflight Mechanic: Diana Kemp Estimated Blood Loss: Minimal Specimens: Drains: There were no complications unless listed below. LINO SOTO MD Date: 10/10/2024 Time: 12:18 PM * Lino Soto MD - 10/10/2024 11:48 AM EDT [id number] Procedure Date: 10/10/2024 11:48 AM Patient Name: Julien Gilbert Date of : 1985 Admit Type: Inpatient Age: 39 Gender: Male Note Status: Finalized Attending MD: Lino Soto MD, [id number] Procedure: Upper GI endoscopy Indications: Gastroesopahgeal variceal [...] verified by the physician, the nurse, the automotive machinist apprentice and the dialysis technician in the pre-procedure area in the [...] collected. Recommendation: - Return patient to hospital ehctor for ongoing care. - Resume previous diet. - Continue present medications. - Repeat EGD for surveillance in a year if patient does not get a liver transplant - No beta blockers due to hypotension Procedure Code(s): --- Professional --- 41420, GC, Esophagogastroduodenoscopy, flexible, transoral; diagnostic, including collection of specimen(s) by brushing or washing, when performed (separate procedure) Diagnosis Code(s): --- Professional --- I85.00, Esophageal varices without bleeding K76.6, Portal hypertension K31.89, Other diseases of stomach and duodenum CPT copyright 2022 [employer]. All rights reserved. The codes documented in this report are preliminary and upon gun fertilizer review may be revised to meet current [...] In: 12:10:16 PM Scope Out: 12:17:[address] [place] [address], [facility] * Gill Le RN - 10/09/2024 4:00 [...] this time. 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 Describes significant anxiety that occasionally limits his ability to drive, and stated he has to pull socket assembler occasionally to collect himself, thought denied specific [...] need for sleep. Has not been on [email or web address] for mental health since stopping the cymbalta. [...] to his health decline. He was raised Oriental Orthodox and denied current engagement in any community [...] other abnormalities Cognition/Memory: short term and terminal system operator memory intact. Attention and concentration: is [...] from the original note were not included. [facility] General Cardiology Consult Note Referring Physician: [...] at baseline or with provocation, shows no tvzcm-oa-ilpk atrial level shunt. - Pulmonary arteries: Systolic [...] with Cardiology can be scheduled by calling [phone]. Thank you for the opportunity to participate in this patient's care. Please call orpage with any questions. Leonor Garcia MD Asbestos Wire Finisher I have personally seen, examined, reviewed all [...] 0659 10/11/24 0700 - 10/12/24 0659 Shift 5328-7902 1191-2048 24 Hour Total 4305-9783 2258-1444 2772-2509 24 Hour Total INTAKE P.O. 0817 451 2220 P.O. 3790 638 3696 Boost (mL) - [facility] only 240 240 I.V.(mL/kg) 450(3.8) [...] (See Comments) Became Manic * Bakari Wahl, [facility] - 10/10/2024 10:07 AM EDT Interventional [...] CNP Vascular & Interventional Radiology 10/10/2024,1:54 PM [facility]: [phone]) [1] Social History Tobacco Use Smoking Status [...] EDTAssociated Order(s): IP CONSULT TO INFECTIOUS DISEASES [facility] DEPARTMENT OF INFECTIOUS DISEASE INITIAL NOTE Referring Physician: Fouzia Rene MD Consult Attending: Daria Garcia Patient: Julien Gilbert CSN: [id number] Reason for Consult: CC: Abx management History [...] HE. He was born and raised in [facility] . No travel to the [facility] and the [facility]. 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 [...] Low Risk (07/09/2024) Received from [facility] Overall Financial Resource Strain (CARDIA) Difficulty [...] No Physical Activity: Unknown (07/14/2024) Received from [facility] Exercise Vital Sign Days of Exercise per Week: Patient unable to answer Minutes of Exercise per Session: Not on file Stress: Patient Unable To Answer (07/14/2024) Received from [facility] [place] [employer] - Occupational Stress Questionnaire Feeling of Stress : Patient unable to answer Social Connections: Patient Unable To Answer (07/14/2024) Received from [facility] Social Connection and Isolation Panel [NHANES] Frequency of Communication with Friends and Family: Patient unable to answer Frequency of Social Gatherings with Friends and Family: Patient unable to answer Attends Temple Services: Patient unable to answer Active Member [...] day. Qty: 60 tablet, Refills: 0 Comments: [facility] [place] [address] sodium bicarbonate 650 MG tablet Take 2 [...] Aphasia [R47.01] 10/06/2024 SBP (spontaneous bacterial peritonitis) ([facility]) [K65.2] 09/08/2024 Metabolic acidosis with normal anion gap and bicarbonate losses [E87.20] 09/03/2024 CKD (chronic kidney disease) stage 4, GFR 15-29 ml/min ([facility]) [N18.4] 09/03/2024 GERD (gastroesophageal reflux disease) [K21.9] 09/03/2024 Renal mass, left [N28.89] 08/18/2024 Thrombocytopenia ([facility]) [D69.6] Decompensated cirrhosis ([facility]) [K72.90, K74.60] 07/25/2024 NADIYA (acute kidney injury) ([facility]) [N17.9] 07/25/2024 Resolved Hospital Problems No [...] Low Risk (07/09/2024) Received from [facility] Overall Financial Resource Strain (CARDIA) Difficulty [...] No Physical Activity: Unknown (07/14/2024) Received from [facility] Exercise Vital Sign Days of Exercise per Week: Patient unable to answer Minutes of Exercise per Session: Not on file Stress: Patient Unable To Answer (07/14/2024) Received from [facility] [place] [facility] [employer]ational [facility] - Occupational Stress Questionnaire Feeling of Stress : Patient unable to answer Social Connections: Patient Unable To Answer (07/14/2024) Received from [facility] Social Connection and Isolation Panel [NHANES] Frequency of Communication with Friends and Family: Patient unable to answer Frequency of Social Gatherings with Friends and Family: Patient unable to answer Attends Temple Services: Patient unable to answer Active Member [...] is no recent study available for direct [id number] comparison. Left Ventricle The left ventricle is [...] pressures < 35 mmHgon resting echo from [facility] 07/15/24. No ischemic workup noted. ECG from [...] surgery with risk (OLT/OKT) Los Broussard MD, [facility] Department of Anesthesiology [1] Allergies Allergen Reactions Adhesive Itching and Rash Tegaderm adhesive on Ivs, pt states its tolerable Duloxetine Other (See Comments) Became Manic [2] Patient Active Problem List Diagnosis Decompensated cirrhosis (CMS-HCC) NADIYA (acute kidney injury) ([facility]) Alcohol use disorder Metabolic encephalopathy Hypertension Other hyperlipidemia Thrombocytopenia (CMS-HCC) Renal mass, left Abdominal pain Hypokalemia CKD (chronic kidney disease) stage 4, GFR 15-29 ml/min ([facility] Metabolic acidosis with normal anion gap and bicarbonate losses GERD (gastroesophageal reflux disease) Hypothyroidism Itching Anemia BRBPR (bright red blood per rectum) SBP (spontaneous bacterial peritonitis) ([facility]) C Diff Diarrhea C. difficile diarrhea Aphasia [...] Date: 10/05/2024 Admission Diagnosis: AMS Attending provider: Fouiza Rene MD PCP: Enedina Mcguire NP Home Pharmacy: [facility] [address] [place] [address] [facility] [address] [place] [address] Issues related to obtaining medications: Payor Information Medical Insurance Coverage: Payor: [facility] / Plan: [facility] / Product Type: *No Producttype* / Secondary Payor: Functional Assessment Functional Assessment Assessment Information Obtained From:: Patient Current Mental Status: Awake, Oriented to Person, Oriented to Place, Oriented to Time, Oriented to Situation Mental Health History: Yes Behavioral Health Agency Involvement: Yes Behavioral Health Agency Name: Other (Comment) (states he used [facility] for mental health help) Do you need [...] confusion and lethargy. HE was seen at [facility] ED were CT head unremarkable and RUQ with gallstones, abdominal ascites diagnostic para done and started on empiric CTX. BSN RN Speech Communication Instructor Neisha Fuentes met with patient at bedside [...] concerns or diagnoses. He has used [facility] to aide with his mental health. Patient denies current alcohol misuse, tobacco, and/or drug or illicit substance use. Previously hedid drink alcohol. No history of jail facility or inpatient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 [facility] ALT 22 7 - 52 U/L 10/14/2024 4:45 AM EDT [facility] Alkaline Phosphatase 119 36 - 125 U/L 10/14/2024 4:45 AM EDT [facility] Total Protein 4.6(L) 6.4 - 8.9 g/dL 10/14/2024 4:45 AM EDT [facility] Albumin 3.3(L) 3.5 - 5.7 g/dL 10/14/2024 4:45 AM EDT [facility] Bilirubin, Indirect 3.34(H) 0.00 - 1.10 mg/dL 10/14/2024 4:45 AM EDT [facility] Plasma 10/14/2024 2:53 AM EDT 10/14/2024 4:16 AM EDT Eileen Schroeder MD, PhD LAB BLOOD ORDERABLES Final Result Performing Organization Address [facility] Co de Phone Number [facility] [address] [facility]. [address] * Magnesium (10/14/2024 2:53 AM EDT) Magnesium 1.9 1.5 - 2.5 mg/dL 10/14/2024 4:45 AM EDT [facility] Plasma 10/14/2024 2:53 AM EDT 10/14/2024 4:16 AM EDT Eileen Schroeder MD, PhD LAB BLOOD ORDERABLES Final Result Performing Organization Address City/[facility] Co de Phone Number [facility] [address] [facility]. [place] [address] * (ABNORMAL) Renal Function Panel w/EGFR (10/14/2024 2:53 AM EDT) Sodium 136 133 - 146 mmol/L 10/14/2024 4:45 AM EDT [facility] Potassium 3.5 3.5 - 5.3 mmol/L 10/14/2024 4:45 AM EDT [facility] Chloride 107 98 - 110 mmol/L 10/14/2024 4:45 AM EDT [facility] CO2 16(L) 21 - 33 mmol/L 10/14/2024 4:45 AM EDT [facility] Anion Gap 13 3 - 16 mmol/L 10/14/2024 4:45 AM EDT [facility] BUN 55(H) 7 - 25 mg/dL 10/14/2024 4:45 AM EDT [facility] Creatinine 3.01(H) 0.60 - 1.30 mg/dL 10/14/2024 4:45 AM EDT [facility] Glucose 95 70 - 100 mg/dL 10/14/2024 4:45 AM EDT [facility] Calcium 8.5(L) 8.6 - 10.3 mg/dL 10/14/2024 4:45 AM EDT [facility] Phosphorus 4.4 2.1 - 4.7 mg/dL 10/14/2024 4:45 AM EDT [facility] Albumin 3.3(L) 3.5 - 5.7 g/dL 10/14/2024 4:45 AM EDT [facility] Osmolality, Calculated 297 278 - 305 mOsm/kg 10/14/2024 4:45 AM EDT [facility] EGFR 26 10/14/2024 4:45 AM EDT [facility] Comment:As of 2021, the estimated [...] MD, PhD LAB BLOOD ORDERABLES Final Result [facility] [address] [place] [address], [facility] * (ABNORMAL) CBC (10/14/2024 2:53 AM EDT) WBC 5.5 3.8 - 10.8 10E3/uL 10/14/2024 5:00 AM EDT [facility] RBC 2.09(L) 4.20 - 5.80 10E6/uL 10/14/2024 5:00 AM EDT [facility] Hemoglobin 7.6(L) 13.2 - 17.1 g/dL 10/14/2024 5:00 AM EDT [facility] Hematocrit 21.3(L) 38.5 - 50.0 % 10/14/2024 5:00 AM EDT [facility] MCV 101.7(H) 80.0 - 100.0 fL 10/14/2024 5:00 AM EDT [facility] MCH 36.3(H) 27.0 - 33.0 pg 10/14/2024 5:00 AM EDT [facility] MCHC 35.7 32.0 - 36.0 g/dL 10/14/2024 5:00 AM EDT [facility] RDW 17.6(H) 11.0 - 15.0 % 10/14/2024 5:00 AM EDT [facility] Platelets 35(L) 140 - 400 10E3/uL 10/14/2024 5:00 AM EDT [facility] Comment: Specimen checked for clots. None detected. Slide Reviewed for PLT Clumps. None Seen. MPV 8.5 7.5 - 11.5 fL 10/14/2024 5:00 AM EDT [facility] Whole Blood 10/14/2024 2:53 AM EDT 10/14/2024 4:17 AM EDT us Eileen Schroeder MD, PhD LAB BLOOD ORDERABLES Final Result [facility] [address] [place] [address], [facility] * [...] mL of GADOBUTROL 1 MMOL/ML INTRAVENOUS SYRINGE ([facility]) administered intravenously COMPARISON: CT 09/03/2024. [...] mL of GADOBUTROL 1 MMOL/ML INTRAVENOUS SYRINGE ([facility])administered intravenously COMPARISON: CT 09/03/2024. Ultrasound [...] myocardial infarction: 2.5 - 3.5 Plasma 10/13/2024 5:3 5 AM EDT 10/13/2024 5:52 AM EDT us Eileen Schroeder MD, PhD LAB BLOOD ORDERABLES Final Result Performing Organization Address [facility] Co de Phone Number [facility] [address] [facility]. [address] * (ABNORMAL) Hepatic Function Panel (10/13/2024 5:35 AM EDT) Total Bilirubin 6.5(H) 0.0 - 1.5 mg/dL 10/13/2024 6:30 AM EDT [facility] Bilirubin, Direct 3.53(H) 0.00 - 0.40 mg/dL 10/13/2024 6:30 AM EDT [facility] AST 42(H) 13 - 39 U/L 10/13/2024 6:30 AM EDT [facility] ALT 19 7 - 52 U/L 10/13/2024 6:30 AM EDT [facility] Alkaline Phosphatase 108 36 - 125 U/L 10/13/2024 6:30 AM EDT [facility] Total Protein 4.4(L) 6.4 - 8.9 g/dL 10/13/2024 6:30 AM EDT [facility] Albumin 3.1(L) 3.5 - 5.7 g/dL 10/13/2024 6:30 AM EDT [facility] Bilirubin, Indirect 2.97(H) 0.00 - 1.10 mg/dL 10/13/2024 6:30 AM EDT [facility] Plasma 10/13/2024 5:35 AM EDT 10/13/2024 5:52 AM EDT us Eileen Schroeder MD, PhD LAB BLOOD ORDERABLES Final Result Performing Organization Address City/[facility] Co de Phone Number [facility] [address] [facility]. [address] * Magnesium (10/13/2024 5:35 AM EDT) Magnesium 2.0 1.5 - 2.5 mg/dL 10/13/2024 6:30 AM EDT [facility] Plasma 10/13/2024 5:35 AM EDT 10/13/2024 5:52 AM EDT Eileen Schroeder MD, PhD LAB BLOOD ORDERABLES Final Result [facility] [address] [place], [place] [address] * (ABNORMAL) Renal Function Panel w/EGFR (10/13/2024 5:35 AM EDT) Sodium 134 133 - 146 mmol/L 10/13/2024 6:30 AM EDT [facility] Potassium 3.7 3.5 - 5.3 mmol/L 10/13/2024 6:30 AM EDT [facility] Chloride 109 98 - 110 mmol/L 10/13/2024 6:30 AM EDT [facility] CO2 14(L) 21 - 33 mmol/L 10/13/2024 6:30 AM EDT [facility] Anion Gap 11 3 - 16 mmol/L 10/13/2024 6:30 AM EDT [facility] BUN 54(H) 7 - 25 mg/dL 10/13/2024 6:30 AM EDT [facility] Creatinine 2.99(H) 0.60 - 1.30 mg/dL 10/13/2024 6:30 AM EDT [facility] Glucose 116(H) 70 - 100 mg/dL 10/13/2024 6:30 AM EDT [facility] Calcium 8.3(L) 8.6 - 10.3 mg/dL 10/13/2024 6:30 AM EDT [facility] Phosphorus 4.5 2.1 - 4.7 mg/dL 10/13/2024 6:30 AM EDT [facility] Albumin 3.1(L) 3.5 - 5.7 g/dL 10/13/2024 6:30 AM EDT [facility] Osmolality, Calculated 294 278 - 305 mOsm/kg 10/13/2024 6:30 AM EDT [facility] EGFR 26 10/13/2024 6:30 AM [...] MD, PhD LAB BLOOD ORDERABLES Final Result [facility] [address] [place] [address], [facility] * (ABNORMAL) CBC (10/13/2024 5:35 AM EDT) WBC 4.7 3.8 - 10.8 10E3/uL 10/13/2024 6:22 AM EDT [facility] RBC 2.06(L) 4.20 - 5.80 10E6/uL 10/13/2024 6:22 AM EDT [facility] Hemoglobin 7.4(L) 13.2 - 17.1 g/dL 10/13/2024 6:22 AM EDT [facility] Hematocrit 21.7(L) 38.5 - 50.0 % 10/13/2024 6:22 AM EDT [facility] MCV 105.4(H) 80.0 - 100.0 fL 10/13/2024 6:22 AM EDT [facility] MCH 35.9(H) 27.0 - 33.0 pg 10/13/2024 6:22 AM EDT [facility] MCHC 34.0 32.0 - 36.0 g/dL 10/13/2024 6:22 AM EDT [facility] RDW 18.5(H) 11.0 - 15.0 % 10/13/2024 6:22 AM EDT [facility] Platelets 35(L) 140 - 400 10E3/uL 10/13/2024 6:22 AM EDT [facility] Comment: CNV Specimen checked for clots. None detected. MPV 8.4 7.5 - 11.5 fL 10/13/2024 6:22 AM EDT [facility] Whole Blood 10/13/2024 5:35 AM EDT 10/13/2024 5:53 AM EDT us Eileen Schroeder MD, PhD LAB BLOOD ORDERABLES Final Result Performing Organization Address [facility]/ZIP Co de Phone Number [facility] [address] [facility]. [address] * (ABNORMAL) Ammonia (10/13/2024 5:35 AM EDT) Ammonia 203(HH) 27 - 90 ug/dL 10/13/2024 7:16 AM EDT [facility] Comment: HEMOLYSIS EVIDENT. RESULTS MAY BE INFLUENCED. Critical Result [id number] Called to and read back by: KEY MELO RN at: 10/13/2024 07:15:55 by:NISREEN Plasma 10/13/2024 5:35 AM EDT 10/13/2024 6:19 AM EDT us Ehsaun Mays DO LAB BLOOD ORDERABLES Final Resul t Performing Organization Address City/[facility]/ZIP Co de Phone Number [facility] [address] [facility]. [address] * CARISA Rhythm Strip - Scan (10/12/2024 10:30 PM EDT) us Scanning [facility] SCAN DOCS - NO RESULTS Final Res ult * (ABNORMAL) Protime-INR (10/12/2024 5:44 AM EDT) Pathologist [facility] Protime 25.7(H) 12.1 - 15.1 seconds 10/12/2024 [...] MD, PhD LAB BLOOD ORDERABLES Final Result [facility] [address] * (ABNORMAL) Hepatic Function Panel (10/12/2024 5:44 AM EDT) Pathologist [facility] Total Bilirubin 6.5(H) 0.0 - 1.5 mg/dL 10/12/2024 6:29 AM EDT [facility] Bilirubin, Direct 3.64(H) 0.00 - 0.40 mg/dL 10/12/2024 6:29 AM EDT [facility] AST 40(H) 13 - 39 U/L 10/12/2024 6:29 AM EDT [facility] ALT 19 7 - 52 U/L 10/12/2024 6:29 AM EDT [facility] Alkaline Phosphatase 99 36 - 125 U/L 10/12/2024 6:29 AM EDT [facility] Total Protein 4.2(L) 6.4 - 8.9 g/dL 10/12/2024 6:29 AM EDT [facility] Albumin 3.1(L) 3.5 - 5.7 g/dL 10/12/2024 6:29 AM EDT [facility] Bilirubin, Indirect 2.86(H) 0.00 - 1.10 mg/dL 10/12/2024 6:29 AM EDT [facility] Plasma 10/12/2024 5:44 AM EDT 10/12/2024 5:58 AM EDT us Eileen Schroeder MD, PhD LAB BLOOD ORDERABLES Final Result Performing Organization Address City/[facility]/ZIP Co de Phone Number [facility] [address] * Magnesium (10/12/2024 5:44 AM EDT) Magnesium 1.9 1.5 - 2.5 mg/dL 10/12/2024 6:29 AM EDT [facility] Plasma 10/12/2024 5:44 AM EDT 10/12/2024 5:58 AM EDT us Eileen Schroeder MD, PhD LAB BLOOD ORDERABLES Final Result Performing Organization Address [facility] Co de Phone Number [facility] [address] * (ABNORMAL) Renal Function Panel w/EGFR (10/12/2024 5:44 AM EDT) Sodium 135 133 - 146 mmol/L 10/12/2024 6:29 AM EDT [facility] Potassium 3.7 3.5 - 5.3 mmol/L 10/12/2024 6:29 AM EDT [facility] Chloride 109 98 - 110 mmol/L 10/12/2024 6:29 AM EDT [facility] CO2 17(L) 21 - 33 mmol/L 10/12/2024 6:29 AM EDT [facility] Anion Gap 9 3 - 16 mmol/L 10/12/2024 6:29 AM EDT [facility] BUN 52(H) 7 - 25 mg/dL 10/12/2024 6:29 AM EDT [facility] Creatinine 2.94(H) 0.60 - 1.30 mg/dL 10/12/2024 6:29 AM EDT [facility] Glucose 121(H) 70 - 100 mg/dL 10/12/2024 6:29 AM EDT [facility] Calcium 8.5(L) 8.6 - 10.3 mg/dL 10/12/2024 6:29 AM EDT [facility] Phosphorus 4.6 2.1 - 4.7 mg/dL 10/12/2024 6:29 AM EDT [facility] Albumin 3.1(L) 3.5 - 5.7 g/dL 10/12/2024 6:29 AM EDT [facility] Osmolality, Calculated 295 278 - 305 mOsm/kg 10/12/2024 6:29 AM EDT [facility] EGFR 27 10/12/2024 6:29 AM EDT [facility] Comment:As of 2021, the estimated [...] MD, PhD LAB BLOOD ORDERABLES Final Result [facility] [address] [place], [place] [address] * (ABNORMAL) CBC (10/12/2024 5:44 AM EDT) WBC 3.3(L) 3.8 - 10.8 10E3/uL 10/12/2024 7:06 AM EDT [facility] RBC 1.95(L) 4.20 - 5.80 10E6/uL 10/12/2024 7:06 AM EDT [facility] Hemoglobin 7.2(L) 13.2 - 17.1 g/dL 10/12/2024 7:06 AM EDT [facility] Hematocrit 19.7(L) 38.5 - 50.0 % 10/12/2024 7:06 AM EDT [facility] MCV 101.2(H) 80.0 - 100.0 fL 10/12/2024 7:06 AM EDT [facility] MCH 37.0(H) 27.0 - 33.0 pg 10/12/2024 7:06 AM EDT [facility] MCHC 36.5(H) 32.0 - 36.0 g/dL 10/12/2024 7:06 AM EDT [facility] RDW 17.6(H) 11.0 - 15.0 % 10/12/2024 7:06 AM EDT [facility] Platelets 30(L) 140 - 400 10E3/uL 10/12/2024 7:06 AM EDT [facility] Comment: Specimen checked for clots. None detected. Slide Reviewed for PLT Clumps. None Seen. Platelet Estimate Decreased 10/12/2024 7:06 AM EDT [facility] MPV 8.3 7.5 - 11.5 fL 10/12/2024 7:06 AM EDT [facility] Whole Blood 10/12/2024 5:44 AM EDT 10/12/2024 5:58 AM EDT Narrative [facility] - 10/12/2024 7:06 AM EDT Peripheral blood smear was scanned per review criteria approved by the laboratory medical billing service. us Eileen Schroeder MD, PhD LAB BLOOD ORDERABLES Final Result [facility] [address] [id number], [facility] * CARISA Rhythm Strip - Scan (10/11/2024 [...] MD, PhD LAB BLOOD ORDERABLES Final Result [facility] [address] [place] [address], [facility] * (ABNORMAL) Hepatic Function Panel (10/11/2024 3:02 AM EDT) Total Bilirubin 7.3(H) 0.0 - 1.5 mg/dL 10/11/2024 3:38 AM EDT [facility] Bilirubin, Direct 3.85(H) 0.00 - 0.40 mg/dL 10/11/2024 3:38 AM EDT [facility] AST 39 13 - 39 U/L 10/11/2024 3:38 AM EDT [facility] ALT 20 7 - 52 U/L 10/11/2024 3:38 AM EDT [facility] Alkaline Phosphatase 88 36 - 125 U/L 10/11/2024 3:38 AM EDT [facility] Total Protein 4.5(L) 6.4 - 8.9 g/dL 10/11/2024 3:38 AM EDT [facility] Albumin 3.3(L) 3.5 - 5.7 g/dL 10/11/2024 3:38 AM EDT [facility] Bilirubin, Indirect 3.45(H) 0.00 - 1.10 mg/dL 10/11/2024 3:38 AM EDT [facility] Plasma 10/11/2024 3:02 AM EDT 10/11/2024 3:08 AM EDT us Eileen Schroeder MD, PhD LAB BLOOD ORDERABLES Final Result Performing Organization Address City/[facility]/ZIP Co de Phone Number [facility] [address] * Magnesium (10/11/2024 3:02 AM EDT) Magnesium 2.0 1.5 - 2.5 mg/dL 10/11/2024 3:38 AM EDT [facility] Plasma 10/11/2024 3:02 AM EDT 10/11/2024 3:08 AM EDT us Eileen Schroeder MD, PhD LAB BLOOD ORDERABLES Final Result Performing Organization Address [facility] Co de Phone Number [facility] [address] * (ABNORMAL) Renal Function Panel w/EGFR (10/11/2024 3:02 AM EDT) Sodium 134 133 - 146 mmol/L 10/11/2024 3:38 AM EDT [facility] Potassium 3.6 3.5 - 5.3 mmol/L 10/11/2024 3:38 AM EDT [facility] [facility] Chloride 108 98 - 110 mmol/L 10/11/2024 3:38 AM EDT [facility] CO2 16(L) 21 - 33 mmol/L 10/11/2024 3:38 AM EDT [facility] Anion Gap 10 3 - 16 mmol/L 10/11/2024 3:38 AM EDT [facility] BUN 49(H) 7 - 25 mg/dL 10/11/2024 3:38 AM EDT [facility] Creatinine 2.77(H) 0.60 - 1.30 mg/dL 10/11/2024 3:38 AM EDT [facility] Glucose 112(H) 70 - 100 mg/dL 10/11/2024 3:38 AM EDT [facility] Calcium 8.9 8.6 - 10.3 mg/dL 10/11/2024 3:38 AM EDT [facility] Phosphorus 3.5 2.1 - 4.7 mg/dL 10/11/2024 3:38 AM EDT [facility] Albumin 3.3(L) 3.5 - 5.7 g/dL 10/11/2024 3:38 AM EDT [facility] Osmolality, Calculated 292 278 - 305 mOsm/kg 10/11/2024 3:38 AM EDT [facility] EGFR 29 10/11/2024 3:38 AM EDT [facility] Comment:As of 2021, the estimated [...] MD, PhD LAB BLOOD ORDERABLES Final Result [facility] [address] * (ABNORMAL) CBC (10/11/2024 3:02 AM EDT) WBC 4.0 3.8 - 10.8 10E3/uL 10/11/2024 3:55 AM EDT [facility] RBC 2.11(L) 4.20 - 5.80 10E6/uL 10/11/2024 3:55 AM EDT [facility] Hemoglobin 7.7(L) 13.2 - 17.1 g/dL 10/11/2024 3:55 AM EDT [facility] Hematocrit 21.2(L) 38.5 - 50.0 % 10/11/2024 3:55 AM EDT [facility] MCV 100.5(H) 80.0 - 100.0 fL 10/11/2024 3:55 AM EDT [facility] MCH 36.4(H) 27.0 - 33.0 pg 10/11/2024 3:55 AM EDT [facility] MCHC 36.2(H) 32.0 - 36.0 g/dL 10/11/2024 3:55 AM EDT [facility] RDW 17.9(H) 11.0 - 15.0 % 10/11/2024 3:55 AM EDT [facility] Platelets 32(L) 140 - 400 10E3/uL 10/11/2024 3:55 AM EDT [facility] Comment: Specimen checked for clots. None detected. Slide Reviewed for PLT Clumps. None Seen. Platelet Estimate Decreased 10/11/2024 3:55 AM EDT [facility] MPV 8.1 7.5 - 11.5 fL 10/11/2024 3:55 AM EDT [facility] Whole Blood 10/11/2024 3:02 AM EDT 10/11/2024 3:08 AM EDT Narrative [facility] - 10/11/2024 3:55 AM EDT Peripheral blood smear was scanned per review criteria approved by the laboratory medical billing service. us Eileen Schroeder MD, PhD LAB BLOOD ORDERABLES Final Result Performing Organization Address City/State/[facility] Co de Phone Number [facility] [address] * Vancomycin, random (10/11/2024 3:02 AM EDT) Vancomycin Random 13.4 ug/mL 10/11/2024 3:37 AM EDT [facility] Comment:Reference range not established for this test. Plasma 10/11/2024 3:02 AM EDT 10/11/2024 3:08 AM EDT us Jodi Angel PharmD LAB BLOOD ORDERABLES Final Result [facility] [address] [facility] [place] [address], [facility] * [...] diagnostic and therapeutic paracentesis. Bakari Wahl CNP, Visual Merchandising Associate Procedure and Findings: The procedure was performed [...] Using ultrasound guidance, a 10 cm, 5-F Vertical Wind Energyesis catheter was placed into the right lower [...] for diagnostic andtherapeutic paracentesis. Bakari Wahl CNP, Visual Merchandising Associate Procedure and Findings: The procedure was performed [...] per primary team. Report Verified by: Bakari Walh CNP at 10/10/2024 3:31 PM EDT Chari Vanegas MD [facility] [place] [place] IR ORDERABLES Final Result * Stress Testing Lab - scan (10/10/2024 3:08 PM EDT) Scanning [facility] SCAN DOCS - NO RESULTS Final Res ult * (ABNORMAL) Body fluid cell count (10/10/2024 1:51 PM EDT) Color, Fluid Yellow(A) Colorless, Pale Yellow 10/10/2024 5:29 PM EDT [facility] Clarity, Fluid Clear 10/10/2024 5:29 PM EDT [facility] Neutrophil %, Fluid 9 % 10/10/2024 5:29 PM EDT [facility] Lymphocytes %, Fluid 13 % 10/10/2024 5:29 PM EDT [facility] Mesothelial %, Fluid 6 % 10/10/2024 5:29 PM EDT [facility] Macrophage %, Fluid 72 % 10/10/2024 5:29 PM EDT [facility] RBC, Fluid 2,662 /uL 10/10/2024 4:41 PM EDT [facility] Total Nucleated Cells, Fluid 89 /uL 10/10/2024 4:41 PM EDT [facility] Comment:Total Nucleated Cell s represent WBCs and other nucleated cells in the fluid such as lining cells. Ascitic Fluid ABDOMEN / Unknown 1:51 PM EDT 10/10/2024 3:56 PM EDT Result [facility] Gerri Peterson MD BODY FLUIDS AND STOOLS ORDERABL ES Final Result Performing Organization Address [facility] Co de Phone Number [facility] [address] * Body Fluid Culture plus Stain (10/10/2024 1:51 PM EDT) Gram Stain Result Cytospin Results: [facility] Gram Stain Result Polymorphonuclear Leukocytes Seen; [facility] Gram Stain Result No Organisms Seen; [facility] Culture Result No Growth After 5 Days [facility] Fluid ABDOMEN / Unknown 10/10/2024 1:51 PM EDT 10/10/2024 3:56 PM EDT Result [facility] Gerri Peterson MD MICROBIOLOGY - GENERAL ORDERABL ES Final Result [facility] [address] [place] [address], [facility] * UPPER GI ENDOSCOPY (10/10/2024 11:48 AM EDT) 10/10/2024 11:4 8 AM EDT Narrative [facility] - 10/10/2024 12:34 PM EDT [id number] Procedure Date: 10/10/2024 11:48 AM Patient Name: Julien Gilbert Date of : 1985 Admit Type: Inpatient Age: 39 Gender: Male Note Status: Finalized Attending MD: Lino Soto MD, [id number] Procedure: Upper GI endoscopy Indications: Gastroesopahgeal variceal [...] verified by the physician, the nurse, the automotive machinist apprentice and the dialysis technician in the pre-procedure area in the [...] to hypotension Procedure Code(s): --- Professional --- 86165, GC, Esophagogastroduodenoscopy, flexible, transoral; diagnostic, including collection of specimen(s) by brushing or washing, when performed (separate procedure) Diagnosis Code(s): --- Professional --- I85.00, Esophageal varices without bleeding K76.6, Portal hypertension K31.89, Other diseases of stomach and duodenum CPT copyright 2022 [employer]. All rights reserved. The codes documented in this report are preliminary and upon gun fertilizer review may be revised to meet current [...] In: 12:10:16 PM Scope Out: 12:17:[address] [place] [address], [address] Provider Not In System PROCEDURE/MINOR SURGICAL ORDERABLES Final Result Performing Organization Address City/[facility] Co de Phone Number [facility] * (ABNORMAL) Protime-INR (10/10/2024 5:23 AM EDT) Protime 23.9(H) 12.1 - 15.1 seconds 10/10/2024 6:11 AM EDT [facility] INR 2.1(H) 0.9 - 1.1 10/10/2024 6:11 AM EDT [facility] Comment: RECOMMENDED THERAPEUTIC RANGES USING INR : Stable oral anticoagulant therapy: 2.0 - 3.0 Mechanical prosthetic heart valve: 2.5 - 3.5 Recurrent acute myocardial infarction: 2.5 - 3.5 Plasma 10/10/2024 5:23 AM EDT 10/10/2024 5:50 AM EDT Eileen Schroeder MD, PhD LAB BLOOD ORDERABLES Final Result Performing Organization Address City/[facility]/ZIP Co de Phone Number [facility] [address] [place] [address], [place] [address], [place] * (ABNORMAL) Hepatic Function Panel (10/10/2024 5:23 AM EDT) Total Bilirubin 8.6(H) 0.0 - 1.5 mg/dL 10/10/2024 6:21 AM EDT [facility] Bilirubin, Direct 4.65(H) 0.00 - 0.40 mg/dL 10/10/2024 6:21 AM EDT [facility] AST 40(H) 13 - 39 U/L 10/10/2024 6:21 AM EDT [facility] ALT 22 7 - 52 U/L 10/10/2024 6:21 AM EDT [facility] Alkaline Phosphatase 118 36 - 125 U/L 10/10/2024 6:21 AM EDT [facility] Total Protein 4.6(L) 6.4 - 8.9 g/dL 10/10/2024 6:21 AM EDT [facility] Albumin 3.3(L) 3.5 - 5.7 g/dL 10/10/2024 6:21 AM EDT [facility] Bilirubin, Indirect 3.95(H) 0.00 - 1.10 mg/dL 10/10/2024 6:21 AM EDT [facility] Plasma 10/10/2024 5:23 AM EDT 10/10/2024 5:50 AM EDT Eileen Schroeder MD, PhD LAB BLOOD ORDERABLES Final Result [facility] [address] * Magnesium (10/10/2024 5:23 AM EDT) Magnesium 1.9 1.5 - 2.5 mg/dL 10/10/2024 6:21 AM EDT [facility] Plasma 10/10/2024 5:23 AM EDT 10/10/2024 5:50 AM EDT Eileen Schroeder MD, PhD LAB BLOOD ORDERABLES Final Result [facility] [address] [place] [address], [facility] * (ABNORMAL) Renal Function Panel w/EGFR (10/10/2024 5:23 AM EDT) Sodium 135 133 - 146 mmol/L 10/10/2024 6:21 AM EDT [facility] Potassium 3.6 3.5 - 5.3 mmol/L 10/10/2024 6:21 AM EDT [facility] Chloride 108 98 - 110 mmol/L 10/10/2024 6:21 AM EDT [facility] CO2 17(L) 21 - 33 mmol/L 10/10/2024 6:21 AM EDT [facility] Anion Gap 10 3 - 16 mmol/L 10/10/2024 6:21 AM EDT [facility] BUN 53(H) 7 - 25 mg/dL 10/10/2024 6:21 AM EDT [facility] Creatinine 2.85(H) 0.60 - 1.30 mg/dL 10/10/2024 6:21 AM EDT [facility] Glucose 113(H) 70 - 100 mg/dL 10/10/2024 6:21 AM EDT [facility] Calcium 9.0 8.6 - 10.3 mg/dL 10/10/2024 6:21 AM EDT [facility] Phosphorus 3.3 2.1 - 4.7 mg/dL 10/10/2024 6:21 AM EDT [facility] Albumin 3.3(L) 3.5 - 5.7 g/dL 10/10/2024 6:21 AM EDT [facility] Osmolality, Calculated 295 278 - 305 mOsm/kg 10/10/2024 6:21 AM EDT [facility] EGFR 28 10/10/2024 6:21 AM EDT [facility] Comment:As of 2021, the estimated [...] MD, PhD LAB BLOOD ORDERABLES Final Result [facility] [address] * (ABNORMAL) CBC (10/10/2024 5:23 AM EDT) WBC 5.1 3.8 - 10.8 10E3/uL 10/10/2024 6:14 AM EDT [facility] RBC 2.04(L) 4.20 - 5.80 10E6/uL 10/10/2024 6:14 AM EDT [facility] Hemoglobin 7.3(L) 13.2 - 17.1 g/dL 10/10/2024 6:14 AM EDT [facility] Hematocrit 20.6(L) 38.5 - 50.0 % 10/10/2024 6:14 AM EDT [facility] MCV 101.2(H) 80.0 - 100.0 fL 10/10/2024 6:14 AM EDT [facility] MCH 36.0(H) 27.0 - 33.0 pg 10/10/2024 6:14 AM EDT [facility] MCHC 35.5 32.0 - 36.0 g/dL 10/10/2024 6:14 AM EDT [facility] RDW 17.6(H) 11.0 - 15.0 % 10/10/2024 6:14 AM EDT [facility] Platelets 39(L) 140 - 400 10E3/uL 10/10/2024 6:14 AM EDT [facility] Comment: CNV Specimen checked for clots. None detected. MPV 9.8 7.5 - 11.5 fL 10/10/2024 6:14 AM EDT [facility] Whole Blood 10/10/2024 5:23 AM EDT 10/10/2024 5:51 AM EDT us Eileen Schroeder MD, PhD LAB BLOOD ORDERABLES Final Result Performing Organization Address [facility] Co de Phone Number [facility] [address] [place] [address] * Vancomycin, random (10/10/2024 5:23 AM EDT) Vancomycin Random 16.4 ug/mL 10/10/2024 6:22 AM EDT [facility] Comment:Reference range not established for this test. Plasma 10/10/2024 5:23 AM EDT 10/10/2024 5:51 AM EDT us Jodi FreireD LAB BLOOD ORDERABLES Final Result Performing Organization Address [facility] de Phone Number [address] * ECHO STRESS W/ CONTRAST (10/09/2024 4:37 PM EDT) Anatomical Region Laterality Modality Chest Ultrasound 10/09/2024 2:40 PM EDT Narrative 10/09/2024 6:45 PM EDT * [facility]* [address] [place] [address] Stress Echocardiogram Patient: Julien Gilbert Room: 8142 Height: 76in MR Number: [id number] : 1985 Weight: 262lb Account: [id number] Gender: M BP: 125 / 77 Study Date: 10/09/2024 Age: 39 BSA: 2.48m^2 Referring physician: Gerri Peterson Interpreting physician: Tonya Henriquez MD FELLOW Lisa Jha MD PERFORMING Tonya Henriquez MD PHOTOGRAPHIC LABORATORY TECHNICIAN [employer] Askanda REFERRING Gerri Peterson ATTENDING [...] was augmented by the addition of hand sales team member and leg lifts. The infusion was terminated [...] at baseline or with provocation, shows no nritn-zg-kdru atrial level shunt. - Pulmonary arteries: Systolic [...] at baseline or with provocation, shows no iwdtv-su-umts atrial level shunt. Pulmonary artery: - Systolic [...] at baseline or with provocation, shows no trxlz-bf-uyjj atrial level shunt. Pericardium: - There is [...] peak heart rate and blood pressure was 82531vh Hg/min. Stress testing did not produce any [...] Reviewed and confirmed by Tonya Henriquez MD [id number] Procedure Note Tonya Henriquez MD - 10/09/2024 * [facility]* [address] [place] [address] Stress Echocardiogram Patient: Julien Gilbert Room: 8142 Height: 76in MR Number: [id number] : 1985 Weight: 262lb Account: [id number] Gender: M BP: 125 / 77 Study Date: 10/09/2024 Age: 39 BSA: 2.48m^2 Referring physician: Gerri Peterson Interpreting physician: Tonya Henriquez MD FELLOW Lisa Jha MD PERFORMING Tonya Henriquez MD PHOTOGRAPHIC LABORATORY TECHNICIAN [employer] ORDERING Gerri Peterson REFERRING Gerri Peterson ATTENDING Fouzia Rene ADMITTING Angie Blanchard Procedure:STRESS ECHO - PHARMACOLOGIC Order: Indications: Pre-Operative Clearance (Z01.818). PMH: EtOH Use Disorder. Risk factors: Hypertension. Dyslipidemia. Study data: Height: 76in. 193cm. Weight: 262lb. 118.8kg. The previousstudy was not available, so comparison was made to the report of 07/15/2024. Study status: Routine. Procedure: [facility]. Intravenous [...] was augmented by the addition of hand sales team member and leg lifts. The infusion was terminated [...] at baseline or with provocation, shows no dzydo-bp-gzuq atrial level shunt. - Pulmonary arteries: Systolic [...] study at baseline or with provocation, showsno vhbia-bu-ylzc atrial level shunt. Pulmonary artery: - Systolic [...] at baseline or with provocation, shows no vlojc-bv-vlbb atrial level shunt. Pericardium: - There is [...] heart rate). The maximal predicted heart rate [id number]. The target heart rate was 152bpm. The target heart rate was achieved.The heart rate response to stress is normal. There is a normal resting blood pressure with an appropriate response to stress. The rate-pressureproduct for the peak heart rate and blood pressure was 49295sd Hg/min. Stress testing did not produce any [...] cm^2/m^2 --------- LVOT/AV, Vmean ratio 0.93 --------- MARGAREHT, Vmean 3.4 cm^2 --------- MARGARETH/bsa, Vmean 1.36 [...] Reviewed and confirmed by Tonya Henriquez MD [id number] us Gerri Peterson MD CV ECHO ORDERABLES Final Result * (ABNORMAL) Renal Function Panel w/EGFR, STAT (10/09/2024 1:05 PM EDT) Sodium 134 133 - 146 mmol/L 10/09/2024 2:10 PM EDT [facility] Potassium 3.7 3.5 - 5.3 mmol/L 10/09/2024 2:10 PM EDT [facility] Chloride 105 98 - 110 mmol/L 10/09/2024 2:10 PM EDT [facility] CO2 17(L) 21 - 33 mmol/L 10/09/2024 2:10 PM EDT [facility] Anion Gap 12 3 - 16 mmol/L 10/09/2024 2:10 PM EDT [facility] BUN 53(H) 7 - 25 mg/dL 10/09/2024 2:10 PM EDT [facility] Creatinine 2.89(H) 0.60 - 1.30 mg/dL 10/09/2024 2:10 PM EDT [facility] Glucose 108(H) 70 - 100 mg/dL 10/09/2024 2:10 PM EDT [facility] Calcium 9.3 8.6 - 10.3 mg/dL 10/09/2024 2:10 PM EDT [facility] Phosphorus 3.4 2.1 - 4.7 mg/dL 10/09/2024 2:10 PM EDT [facility] Albumin 3.6 3.5 - 5.7 g/dL 10/09/2024 2:10 PM EDT [facility] Osmolality, Calculated 293 278 - 305 mOsm/kg 10/09/2024 2:10 PM EDT [facility] EGFR 27 10/09/2024 2:10 PM EDT [facility] Comment:As of 2021, the estimated [...] MD, PhD LAB BLOOD ORDERABLES Final Result [facility] [address] [place] [address], [facility] * (ABNORMAL) Renal Function Panel w/EGFR, STAT (10/09/2024 8:14 AM EDT) Sodium 134 133 - 146 mmol/L 10/09/2024 8:47 AM EDT [facility] Potassium 3.4(L) 3.5 - 5.3 mmol/L 10/09/2024 8:47 AM EDT [facility] Chloride 107 98 - 110 mmol/L 10/09/2024 8:47 AM EDT [facility] CO2 17(L) 21 - 33 mmol/L 10/09/2024 8:47 AM EDT [facility] Anion Gap 10 3 - 16 mmol/L 10/09/2024 8:47 AM EDT [facility] BUN 54(H) 7 - 25 mg/dL 10/09/2024 8:47 AM EDT [facility] Creatinine 3.04(H) 0.60 - 1.30 mg/dL 10/09/2024 8:47 AM EDT [facility] Glucose 124(H) 70 - 100 mg/dL 10/09/2024 8:47 AM EDT [facility] Calcium 9.0 8.6 - 10.3 mg/dL 10/09/2024 8:47 AM EDT [facility] Phosphorus 3.5 2.1 - 4.7 mg/dL 10/09/2024 8:47 AM EDT [facility] Albumin 3.4(L) 3.5 - 5.7 g/dL 10/09/2024 8:47 AM EDT [facility] Osmolality, Calculated 294 278 - 305 mOsm/kg 10/09/2024 8:47 AM EDT [facility] EGFR 26 10/09/2024 8:47 AM EDT [facility] Comment:As of 2021, the estimated [...] ORDERABLES Final Resu lt Performing Organization Address City/[facility]/ZIP Co de Phone Number [facility] [address] * Prepare RBC, leukoreduced, 1 Units (10/09/2024 6:16 AM EDT) Product Code [id number] [facility] Unit Number [id number] [facility] Dispense Status Presumed Transfused_PT [facility] Blood Expiration Date [id number] [facility] Coding System [id number] Product Eileen Schroeder MD, PhD BLOOD BANK PRODUCT OR DERABLES Final Result [facility] * (ABNORMAL) Protime-INR (10/09/2024 4:59 AM EDT) Protime 26.5(H) 12.1 - 15.1 seconds 10/09/2024 6:30 AM EDT [facility] INR 2.4(H) 0.9 - 1.1 10/09/2024 6:30 AM EDT [facility] Comment: RECOMMENDED THERAPEUTIC RANGES USING INR : Stable oral anticoagulant therapy: 2.0 - 3.0 Mechanical prosthetic heart valve: 2.5 - 3.5 Recurrent acute myocardial infarction: 2.5 - 3.5 Plasma 10/09/2024 4:59 AM EDT 10/09/2024 5:55 AM EDT Eileen Schroeder MD, PhD LAB BLOOD ORDERABLES Final Result Performing Organization Address [facility]/ZIP Co de Phone Number [facility] [address] [facility] * (ABNORMAL) Hepatic Function Panel (10/09/2024 4:59 AM EDT) Total Bilirubin 9.0(H) 0.0 - 1.5 mg/dL 10/09/2024 6:42 AM EDT [facility] Bilirubin, Direct 4.60(H) 0.00 - 0.40 mg/dL 10/09/2024 6:42 AM EDT [facility] AST 38 13 - 39 U/L 10/09/2024 6:42 AM EDT [facility] ALT 18 7 - 52 U/L 10/09/2024 6:42 AM EDT [facility] Alkaline Phosphatase 122 36 - 125 U/L 10/09/2024 6:42 AM EDT [facility] Total Protein 4.8(L) 6.4 - 8.9 g/dL 10/09/2024 6:42 AM EDT [facility] Albumin 3.4(L) 3.5 - 5.7 g/dL 10/09/2024 6:42 AM EDT [facility] Bilirubin, Indirect 4.40(H) 0.00 - 1.10 mg/dL 10/09/2024 6:42 AM EDT [facility] Plasma 10/09/2024 4:59 AM EDT 10/09/2024 5:57 AM EDT Eileen Schroeder MD, PhD LAB BLOOD ORDERABLES Final Result Performing Organization Address City/[facility]/ZIP Co de Phone Number [facility] [address] * Magnesium (10/09/2024 4:59 AM EDT) Magnesium 1.8 1.5 - 2.5 mg/dL 10/09/2024 6:42 AM EDT [facility] Plasma 10/09/2024 4:59 AM EDT 10/09/2024 5:57 AM EDT us Eileen Schroeder MD, PhD LAB BLOOD ORDERABLES Final Result [facility] [address] * (ABNORMAL) Renal Function Panel w/EGFR (10/09/2024 4:59 AM EDT) Sodium 134 133 - 146 mmol/L 10/09/2024 6:42 AM EDT [facility] Potassium 3.3(L) 3.5 - 5.3 mmol/L 10/09/2024 6:42 AM EDT [facility] Chloride 107 98 - 110 mmol/L 10/09/2024 6:42 AM EDT [facility] CO2 16(L) 21 - 33 mmol/L 10/09/2024 6:42 AM EDT [facility] Anion Gap 11 3 - 16 mmol/L 10/09/2024 6:42 AM EDT [facility] BUN 56(H) 7 - 25 mg/dL 10/09/2024 6:42 AM EDT [facility] Creatinine 2.98(H) 0.60 - 1.30 mg/dL 10/09/2024 6:42 AM EDT [facility] Glucose 112(H) 70 - 100 mg/dL 10/09/2024 6:42 AM EDT [facility] Calcium 9.0 8.6 - 10.3 mg/dL 10/09/2024 6:42 AM EDT [facility] Phosphorus 3.5 2.1 - 4.7 mg/dL 10/09/2024 6:42 AM EDT [facility] Albumin 3.4(L) 3.5 - 5.7 g/dL 10/09/2024 6:42 AM EDT [facility] Osmolality, Calculated 294 278 - 305 mOsm/kg 10/09/2024 6:42 AM EDT [facility] EGFR 26 10/09/2024 6:42 AM EDT [facility] Comment:As of 2021, the estimated [...] MD, PhD LAB BLOOD ORDERABLES Final Result [facility] [address] [id number], [facility] * (ABNORMAL) CBC (10/09/2024 4:59 AM EDT) WBC 4.6 3.8 - 10.8 10E3/uL 10/09/2024 6:21 AM EDT [facility] RBC 2.17(L) 4.20 - 5.80 10E6/uL 10/09/2024 6:21 AM EDT [facility] Hemoglobin 8.0(L) 13.2 - 17.1 g/dL 10/09/2024 6:21 AM EDT [facility] Hematocrit 21.8(L) 38.5 - 50.0 % 10/09/2024 6:21 AM EDT [facility] MCV 100.5(H) 80.0 - 100.0 fL 10/09/2024 6:21 AM EDT [facility] MCH 36.7(H) 27.0 - 33.0 pg 10/09/2024 6:21 AM EDT [facility] MCHC 36.5(H) 32.0 - 36.0 g/dL 10/09/2024 6:21 AM EDT [facility] RDW 18.1(H) 11.0 - 15.0 % 10/09/2024 6:21 AM EDT [facility] Platelets 36(L) 140 - 400 10E3/uL 10/09/2024 6:21 AM EDT [facility] Comment:Specimen checked for clots. None detected. MPV 8.3 7.5 - 11.5 fL 10/09/2024 6:21 AM EDT [facility] Whole Blood 10/09/2024 4:59 AM EDT 10/09/2024 5:56 AM EDT us Eileen Schroeder MD, PhD LAB BLOOD ORDERABLES Final Result Performing Organization Address [facility] Co de Phone Number [facility] [address] * Renal Tx Recipient (10/09/2024 4:59 AM EDT) [facility] Renal Transplant Recipient The request and specimen(s) for this test have been received and transported to the [facility] at [address] [place] [address]. The [facility] will report results directly to the client. 10/09/2024 7:26 AM EDT [facility] Blood 10/09/2024 4:59 AM EDT 10/09/2024 7:26 AM EDT us Aaron Gonzalez MD LAB BLOOD ORDERABLES Final Resu lt [facility] [address] * Vancomycin, random (10/09/2024 4:59 AM EDT) [facility] Vancomycin Random 11.0 ug/mL 10/09/2024 6:33 AM EDT [facility] Comment:Reference range not established for this test. Plasma 10/09/2024 4:59 AM EDT 10/09/2024 5:56 AM EDT us Jodi Ortiz PharmD LAB BLOOD ORDERABLES Final Result [facility] [address] [place] [address], [facility] * (ABNORMAL) CBC (10/08/2024 5:52 PM EDT) Pathologist [facility] [place] WBC 5.6 3.8 - 10.8 10E3/uL 10/08/2024 6:52 PM EDT [facility] RBC 2.38(L) 4.20 - 5.80 10E6/uL 10/08/2024 6:52 PM EDT [facility] Hemoglobin 8.3(L) 13.2 - 17.1 g/dL 10/08/2024 6:52 PM EDT [facility] Hematocrit 24.6(L) 38.5 - 50.0 % 10/08/2024 6:52 PM EDT [facility] MCV 103.2(H) 80.0 - 100.0 fL 10/08/2024 6:52 PM EDT [facility] MCH 34.7(H) 27.0 - 33.0 pg 10/08/2024 6:52 PM EDT [facility] MCHC 33.6 32.0 - 36.0 g/dL 10/08/2024 6:52 PM EDT [facility] RDW 18.5(H) 11.0 - 15.0 % 10/08/2024 6:52 PM EDT [facility] Platelets 39(L) 140 - 400 10E3/uL 10/08/2024 6:52 PM EDT [facility] Comment:CNV MPV 8.1 7.5 - 11.5 fL 10/08/2024 6:52 PM EDT [facility] Whole Blood 10/08/2024 5:52 PM EDT 10/08/2024 6:45 PM EDT us Eileen Schroeder MD, PhD LAB BLOOD ORDERABLES Final Result Performing Organization Address City/[facility] Co de Phone Number [facility] [address] * Transfuse RBC Has consent been obtained? Yes; Transfusion Rate: Per dept routine (10/08/2024 1:17 PM EDT) us Eileen Schroeder MD, PhD NURSING TREATMENT ORD ERABLES - BLOOD ADMIN Final Result Performing Organization Address City/[facility] Co de Phone Number EXTERNAL * Transfuse RBC Has consent been obtained? Yes; Transfusion Rate: Per dept routine, 1 Units (10/08/2024 1:17 PM EDT) us Eileen Schroeder MD, PhD NURSING TREATMENT ORD ERABLES - BLOOD ADMIN Final Result Performing Organization Address City/[facility] Co de Phone Number EXTERNAL * (ABNORMAL) MMR(IgG) Panel (Measles, Mumps, Rubella) (10/08/2024 10:25 AM EDT) Mumps IgG Positive 10/08/2024 11:39 AM EDT [facility] MUMPS IGG NUM 99.00(H) 0.0 - 8.9 U/mL 10/08/2024 11:39 AM EDT [facility] Rubella IgG Scr Positive 10/08/2024 11:40 AM EDT [facility] RUB NUM 4.15(H) 0.00 - 0.89 INDEX 10/08/2024 11:40 AM EDT [facility] Rubeola Ab, IgG Positive 10/08/2024 11:39 AM EDT [facility] RUB IGG NUM 273.00(H) 0.00 - 13.40 U/mL 10/08/2024 11:39 AM EDT [facility] Serum 10/08/2024 10:2 5 AM EDT 10/08/2024 10:49 AM EDT Narrative [facility] - 10/08/2024 11:40 AM EDT [...] ORDERABLES Final Resu lt Performing Organization Address [facility]/ZIP Co de Phone Number [facility] [address] [facility]. [address] * (ABNORMAL) Hemoglobin A1C (10/08/2024 10:25 AM EDT) Hemoglobin A1C 3.7(L) 4.0 - 5.6 % 10/09/2024 1:22 PM EDT [facility] Comment: Hemoglobin A1c Interpretation Guidelines: Normal: [...] ORDERABLES Final Resu lt Performing Organization Address [facility] Co de Phone Number [facility] [address] [facility]. [address] * (ABNORMAL) Vitamin D 25 Hydroxy (10/08/2024 10:25 AM EDT) Vit D, 25-Hydroxy 7.1(L) 30.0 - 100.0 ng/mL 10/08/2024 11:36 AM EDT [facility] Comment: Vitamin D deficiency has been defined by the [place] of Medicine (IOM) and an Endocrine Society practice guideline as a level of serum 25-OH Vitamin D less than 20 ng/mL. The Endocrine Society went on to further define Vitamin D insufficiency as a level between 21-29 ng/mL. 1) IOM. 2011 Dietary reference intakes for calcium and D. Majano D.C: The National Academies Press 2) Allison GUARDADO [place], Tory MILLER, et al. Evaluation, treatment, and prevention of Vitamin D deficiency: an Endocrine Society clinical practice guideline. JCEM. 2010; 96(7):1911-30. Serum 10/08/2024 10:2 5 AM EDT 10/08/2024 10:49 AM EDT Gerri Peterson MD LAB BLOOD ORDERABLES Final Resu lt Performing Organization Address [facility] de Phone Number [facility] [address] [facility]. [address] * Iron Studies (Iron + TIBC) (10/08/2024 10:25 AM EDT) Iron 81 50 - 212 ug/dL 10/08/2024 11:23 AM EDT [facility] % Iron Saturation SEE COMMENT 15.0 - 55.0 % 10/08/2024 11:23 AM EDT [facility] Comment:Unable to calculate result because contributing result outside reportable range.. TIBC SEE COMMENT 261 - 462 ug/dL 10/08/2024 11:23 AM EDT [facility] Comment:Unable to calculate result because contributing result outside reportable range.. Serum 10/08/2024 10:2 5 AM EDT 10/08/2024 10:49 AM EDT Gerri Peterson MD LAB BLOOD ORDERABLES Final Resu lt Performing Organization Address [facility] Co de Phone Number [facility] [address] [facility] * (ABNORMAL) Ferritin (10/08/2024 10:25 AM EDT) Ferritin 706.9(H) 23.9 - 336.2 ng/mL 10/08/2024 11:35 AM EDT [facility] Serum 10/08/2024 10:2 5 AM EDT 10/08/2024 10:49 AM EDT us Gerri Peterson MD LAB BLOOD ORDERABLES Final Resu lt [facility] [address] * QuantiFERON TB2 Ag (10/08/2024 10:25 AM EDT) QuantiFERON TB2 Ag Value 0.07 10/10/2024 10:41 AM EDT [facility] Plasma 10/08/2024 10:2 5 AM EDT 10/08/2024 11:05 AM EDT us Gerri Peterson MD LAB BLOOD ORDERABLES Final Resu lt Performing Organization Address [facility]/ZIP Co de Phone Number [facility] [address] * QuantiFERON TB1 Ag (10/08/2024 10:25 AM EDT) QuantiFERON TB1 Ag Value 0.06 10/10/2024 10:41 AM EDT [facility] Plasma 10/08/2024 10:2 5 AM EDT 10/08/2024 11:05 AM EDT us Gerri Peterson MD LAB BLOOD ORDERABLES Final Resu lt [facility] [address] * QuantiFERON Nil (10/08/2024 10:25 AM EDT) QuantiFERON Nil 0.06 10:41 AM EDT [facility] Plasma 10/08/2024 10:2 5 AM EDT 10/08/2024 11:05 AM EDT us Gerri Peterson MD LAB BLOOD ORDERABLES Final Resu lt [facility] [address] [place] [address], [facility] * QuantiFERON Mitogen (10/08/2024 10:25 AM EDT) QuantiFERON Interpretation Negative Negative 10/10/2024 10:41 AM EDT [facility] Comment:Negative result geovanny cates M. tuberculosis infection is NOT likely. Negative results do not preclude tuberculosis infection (especially in immunosuppressed patients). Negative results have a TB antigen minus Nil value less than 0.35 IU/mL. In cases with high suspicion of disease, retesting or additional testing with medical evaluation may be useful. QuantiFERON Mitogen 4.87 10/10 10:41 AM EDT [facility] Plasma 10/08/2024 10:2 5 AM EDT 10/08/2024 11:05 AM EDT Narrative [facility] - 10/10/2024 10:41 AM EDT [...] MD LAB BLOOD ORDERABLES Final Resu lt [facility] [address] [place], [place] [address] * Reticulocyte Count, Auto (10/08/2024 7:41 AM EDT) Pathologist [facility] Retic Ct Pct 1.35 0.50 - 2.00 % 10/08/2024 9:12 AM EDT [facility] Retic Ct Abs 26,190 25,000 - 90,000 /uL 10/08/2024 9:14 AM EDT [facility] Immature Retic Fract 0.37 0.09 - 0.56 10/08/2024 9:12 AM EDT [facility] Whole Blood 10/08/2024 7:41 AM EDT 10/08/2024 8:51 AM EDT Angie Blanchard MD LAB BLOOD ORDERABLES Final Res ult Performing Organization Address [facility]/ZIP Co de Phone Number [facility] [address] [facility] * (ABNORMAL) Haptoglobin (10/08/2024 7:41 AM EDT) Haptoglobin <30(L) 44 - 215 mg/dL 10/08/2024 8:53 AM EDT [facility] Serum 10/08/2024 7:41 AM EDT 10/08/2024 7:51 AM EDT Eileen Schroeder MD, PhD LAB BLOOD ORDERABLES Final Result Performing Organization Address [facility] Co de Phone Number [facility] [address] * (ABNORMAL) CBC - Post Transfusion (10/08/2024 7:41 AM EDT) WBC 3.7(L) 3.8 - 10.8 10E3/uL 10/08/2024 8:34 AM EDT [facility] RBC 1.94(L) 4.20 - 5.80 10E6/uL 10/08/2024 8:34 AM EDT [facility] Hemoglobin 7.1(L) 13.2 - 17.1 g/dL 10/08/2024 8:34 AM EDT [facility] Hematocrit 20.0(L) 38.5 - 50.0 % 10/08/2024 8:34 AM EDT [facility] MCV 103.1(H) 80.0 - 100.0 fL 10/08/2024 8:34 AM EDT [facility] MCH 36.5(H) 27.0 - 33.0 pg 10/08/2024 8:34 AM EDT [facility] MCHC 35.4 32.0 - 36.0 g/dL 10/08/2024 8:34 AM EDT [facility] RDW 17.2(H) 11.0 - 15.0 % 10/08/2024 8:34 AM EDT [facility] Platelets 37(L) 140 - 400 10E3/uL 10/08/2024 8:34 AM EDT [facility] Comment: Specimen checked for clots. None detected. Slide Reviewed for PLT Clumps. None Seen. _Platelet Morphology Normal _Platelets Appear Decreased MPV 8.7 7.5 - 11.5 fL 10/08/2024 8:34 AM EDT [facility] Whole Blood 10/08/2024 7:41 AM EDT 10/08/2024 7:52 AM EDT [facility] - 10/08/2024 8:34 AM EDT Post-transfusion Eileen Schroeder MD, PhD LAB BLOOD ORDERABLES Final Result Performing Organization Address City/[facility]/ZIP Co de Phone Number [facility] [address] * Antibody Screen (10/08/2024 7:41 AM EDT) Antibody Screen Negative 10/08/2024 8:26 AM EDT [facility] Blood 10/08/2024 7:41 AM EDT 10/08/2024 7:57 AM EDT [facility] - 10/08/2024 8:32 AM EDT Testing performed by [facility] Transfusion Service Eileen Schroeder MD, PhD BLOOD BANK TEST ORDER PAL Final Result [facility] [address] * ABO/Rh (10/08/2024 7:41 AM EDT) ABO Grouping O 10/08/2024 8:14 AM EDT [facility] Rh Type Positive 10/08/2024 8:14 AM EDT [facility] Blood 10/08/2024 7:41 AM EDT 10/08/2024 7:57 AM EDT Eileen Schroeder MD, PhD BLOOD BANK TEST ORDER PAL Final Result Performing Organization Address City/[facility]/ZIP Co de Phone Number [facility] [address] [facility]. [address] * (ABNORMAL) Lactate dehydrogenase (10/08/2024 5:36 AM EDT) LD 102(L) 110 - 270 U/L 10/08/2024 8:20 AM EDT [facility] Plasma 10/08/2024 5:36 AM EDT 10/08/2024 7:58 AM EDT Angie Blanchard MD LAB BLOOD ORDERABLES Final Res ult Performing Organization Address [facility] Co de Phone Number [facility] [address] [facility] * (ABNORMAL) Protime-INR (10/08/2024 5:36 AM EDT) Protime 26.9(H) 12.1 - 15.1 seconds 10/08/2024 6:11 AM EDT [facility] INR 2.4(H) 0.9 - 1.1 10/08/2024 6:11 AM EDT [facility] Comment: RECOMMENDED THERAPEUTIC RANGES USING INR : Stable oral anticoagulant therapy: 2.0 - 3.0 Mechanical prosthetic heart valve: 2.5 - 3.5 Recurrent acute myocardial infarction: 2.5 - 3.5 Plasma 10/08/2024 5:36 AM EDT 10/08/2024 5:52 AM EDT Eileen Schroeder MD, PhD LAB BLOOD ORDERABLES Final Result Performing Organization Address [facility]/ZIP Co de Phone Number [facility] [address] [facility] * (ABNORMAL) Hepatic Function Panel (10/08/2024 5:36 AM EDT) Total Bilirubin 7.7(H) 0.0 - 1.5 mg/dL 10/08/2024 6:25 AM EDT [facility] Bilirubin, Direct 4.28(H) 0.00 - 0.40 mg/dL 10/08/2024 6:25 AM EDT [facility] AST 34 13 - 39 U/L 10/08/2024 6:25 AM EDT [facility] ALT 16 7 - 52 U/L 10/08/2024 6:25 AM EDT [facility] Alkaline Phosphatase 103 36 - 125 U/L 10/08/2024 6:25 AM EDT [facility] Total Protein 4.7(L) 6.4 - 8.9 g/dL 10/08/2024 6:25 AM EDT [facility] Albumin 3.5 3.5 - 5.7 g/dL 10/08/2024 6:25 AM EDT [facility] Bilirubin, Indirect 3.42(H) 0.00 - 1.10 mg/dL 10/08/2024 6:25 AM EDT [facility] Plasma 10/08/2024 5:36 AM EDT 10/08/2024 5:52 AM EDT Eileen Schroeder MD, PhD LAB BLOOD ORDERABLES Final Result Performing Organization Address City/[facility]/ZIP Co de Phone Number [facility] [address] * Magnesium (10/08/2024 5:36 AM EDT) Magnesium 1.9 1.5 - 2.5 mg/dL 10/08/2024 6:25 AM EDT [facility] Plasma 10/08/2024 5:36 AM EDT 10/08/2024 5:52 AM EDT Eileen Schroeder MD, PhD LAB BLOOD ORDERABLES Final Result [facility] [address] [place], [place] [address] * (ABNORMAL) Renal Function Panel w/EGFR (10/08/2024 5:36 AM EDT) Sodium 135 133 - 146 mmol/L 10/08/2024 6:25 AM EDT [facility] Potassium 3.2(L) 3.5 - 5.3 mmol/L 10/08/2024 6:25 AM EDT [facility] Chloride 106 98 - 110 mmol/L 10/08/2024 6:25 AM EDT [facility] CO2 17(L) 21 - 33 mmol/L 10/08/2024 6:25 AM EDT [facility] Anion Gap 12 3 - 16 mmol/L 10/08/2024 6:25 AM EDT [facility] BUN 61(H) 7 - 25 mg/dL 10/08/2024 6:25 AM EDT [facility] Creatinine 3.10(H) 0.60 - 1.30 mg/dL 10/08/2024 6:25 AM EDT [facility] Glucose 106(H) 70 - 100 mg/dL 10/08/2024 6:25 AM EDT [facility] Calcium 9.0 8.6 - 10.3 mg/dL 10/08/2024 6:25 AM EDT [facility] Phosphorus 4.0 2.1 - 4.7 mg/dL 10/08/2024 6:25 AM EDT [facility] Albumin 3.5 3.5 - 5.7 g/dL 10/08/2024 6:25 AM EDT [facility] Osmolality, Calculated 298 278 - 305 mOsm/kg 10/08/2024 6:25 AM EDT [facility] EGFR 25 10/08/2024 6:25 AM EDT [facility] Comment:As of 2021, the estimated [...] MD, PhD LAB BLOOD ORDERABLES Final Result [facility] [address] [place] [address], [facility] * (ABNORMAL) CBC (10/08/2024 5:36 AM EDT) WBC 3.2(L) 3.8 - 10.8 10E3/uL 10/08/2024 6:41 AM EDT [facility] RBC 1.86(L) 4.20 - 5.80 10E6/uL 10/08/2024 6:41 AM EDT [facility] Hemoglobin 6.9(L) 13.2 - 17.1 g/dL 10/08/2024 6:41 AM EDT [facility] Hematocrit 18.9(L) 38.5 - 50.0 % 10/08/2024 6:41 AM EDT [facility] MCV 101.6(H) 80.0 - 100.0 fL 10/08/2024 6:41 AM EDT [facility] MCH 36.9(H) 27.0 - 33.0 pg 10/08/2024 6:41 AM EDT [facility] MCHC 36.3(H) 32.0 - 36.0 g/dL 10/08/2024 6:41 AM EDT [facility] RDW 17.0(H) 11.0 - 15.0 % 10/08/2024 6:41 AM EDT [facility] Platelets 34(L) 140 - 400 10E3/uL 10/08/2024 6:41 AM EDT [facility] Comment: Specimen checked for clots. None detected. Slide Reviewed for PLT Clumps. None Seen. Platelet Estimate Decreased 10/08/2024 6:41 AM EDT [facility] MPV 8.4 7.5 - 11.5 fL 10/08/2024 6:41 AM EDT [facility] Whole Blood 10/08/2024 5:36 AM EDT 10/08/2024 5:53 AM EDT Narrative [facility] - 10/08/2024 6:41 AM EDT Peripheral blood smear was scanned per review criteria approved by the laboratory medical billing service. us Eileen Schroeder MD, PhD LAB BLOOD ORDERABLES Final Result [facility] [address] [facility] * Vancomycin, random (10/08/2024 5:36 AM EDT) Vancomycin Random 16.0 ug/mL 10/08/2024 6:20 AM EDT [facility] Comment:Reference range not established for this test. Plasma 10/08/2024 5:36 AM EDT 10/08/2024 5:52 AM EDT us Jodi FreireD LAB BLOOD ORDERABLES Final Result Performing Organization Address [facility]/ZIP Co de Phone Number [facility] [address] 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 STIMULANTS NOT PRESENT 5 1:33 PM EDT [facility] OPIOID ANALGESICS PRESENT 025 1:33 PM EDT [facility] Oxycodone 300 ng/mL 10/09/2024 1:33 PM EDT [facility] Oxymorphone 32 ng/mL 10/09/2024 1:33 PM EDT [facility] Tramadol >1000 ng/mL 10/09/2024 1:33 PM EDT [facility] OPIOID ANTAGONISTS NOT PRESENT 10/09 1:33 PM EDT [facility] SEDATIVES/MUSCLE RELAXANTS NOT PRESENT 10/09/2024 1:33 PM EDT [facility] TRICYCLIC ANTIDEPRESSANTS NOT PRESENT 10/09/2024 1:33 PM EDT [facility] Urine 10/07/2024 10:5 0 PM EDT 10/08/2024 3:00 AM EDT Gerri Peterson MD URINE ORDERABLES Final Result Performing Organization Address City/[facility] Co de Phone Number [facility] [address] [facility] * Giardia Cryptosporidium Antigens (10/07/2024 10:50 PM EDT) Cryptosporidium Ag Negative Negative 2024 7:59 AM EDT [facility] Giardia Ag Negative Negative 10/08/2024 7:59 AM EDT [facility] Comment: Detection of Giardia and Cryptosporidium antigen is more sensitive and specific than microscopy. Because antigens are shed continuously, repeat testing is rarely warranted. Feces 10/07/2024 10:5 0 PM EDT 10/08/2024 1:53 AM EDT Comment:F Bisi Hernandez DO MICROBIOLOGY - GENERAL ORDERABLE S Final Result Performing Organization Address City/[facility]/ZIP Co de Phone Number [facility] [address] [facility] * (ABNORMAL) Urine Drug Screen Reflex to Confirmation (10/07/2024 10:50 PM EDT) Amphetamine, 500 ng/mL Cutoff Negative Negative 10/08/2024 3:00 AM EDT [facility] Barbiturates UR, 300 ng/mL Cutoff Negative Negative 10/08/2024 3:00 AM EDT [facility] Buprenorphine, 5 ng/mL Cutoff Negative Negative 10/08/2024 3:00 AM EDT [facility] Benzodiazepines UR, 300 ng/mL Cutoff Negative Negative 10/08/2024 3:00 AM EDT [facility] Cocaine UR, 300 ng/mL Cutoff Negative Negative 10/08/2024 3:00 AM EDT [facility] Methadone, UR, 300 ng/mL Cutoff Negative Negative 10/08/2024 3:00 AM EDT [facility] Opiates UR, 300 ng/mL Cutoff Negative Negative 10/08/2024 3:00 AM EDT [facility] Oxycodone, 100 ng/mL Cutoff Presumptive Positive(A) Negative 10/08/2024 3:00 AM EDT [facility] Tricyclic Antidepressants, 300 ng/mL Cutoff Negative Negative 10/08/2024 3:00 AM EDT [facility] Comment:This test has been d eveloped and its performance characteristics determined by [facility] which is certified under [...] Cutoff Negative Negative 10/08/2024 3:00 AM EDT [facility] Comment:This is a screening method only and may be associated with false positive and/or false negative results. Results are not definitive without additional confirmatory testing by mass spectrometry. Fentanyl, 2 ng/mL Cutoff Negative Negative 10/08/2024 3:00 AM EDT [facility] Comment:This test has been d eveloped and its performance characteristics determined by [facility] which is certified under [...] PM EDT 10/08/2024 2:08 AM EDT Narrative [facility] - 10/08/2024 3:00 AM EDT CONFIRMATION TO FOLLOW us Gerri Peterson MD URINE ORDERABLES Final Result [facility] [address] [place] [address], [facility] * Comprehensive Drug Screen (10/07/2024 10:50 PM EDT) Creatinine, Ur CANCELED mg/dL 10/08/2024 7:09 AM EDT [facility] Comment:The released value 8 7.30 was canceled by YAQUELIN on 10/08/2024 07:09 BARBITURATES [facility]ED [facility] Butalbital [facility]ELED [facility] Phenobarbital [facility] Secobarbital [facility] BENZODIAZEPINES [facility]ED [facility] Alprazolam [facility] Clonazepam [facility] Diazepam [facility] Alpha-Hydroxyalprazo mcknight [facility] Lorazepam [facility] Midazolam [facility] Nordiazepam [facility] Oxazepam [facility] Temazepam CANCELED [facility] CANNABINOIDS [facility] THC-COOH [facility]CELED [facility] GLAZIER SUPERVISOR STIMULANTS [facility]ELED [facility] Cocaine Metabolite(benzoylec gonine) [facility]ELED [facility] Amphetamine [facility]ED [facility] Methamphetamine [facility] MDA [facility] MDEA [facility] Phencyclindine (PCP) [facility]EL[facility] OPIOID ANALGESICS [facility] Heroin Metabolite(6-RAMONA) [facility] Codeine [facility] Morphine [facility] Hydrocodone [facility] Hydromorphone [facility] Oxycodone [facility] Oxymorphone [facility] Meperidine [facility] Normeperidine [facility] Methadone [facility] Methadone Metabolite (EDDP) [facility] Tramadol [facility] Fentanyl [facility] Norfentanyl [facility] Sufentanil [facility] OPIOID ANTAGONISTS [facility]ED [facility] Buprenorphine [facility] Norbuprenorphine [facility] Naltrexone [facility] Naloxone [facility] SEDATIVES/MUSCLE RELAXANTS [facility] Carisoprodol [facility] Meprobamate [facility] TRICYCLIC ANTIDEPRESSANTS [facility] Amitriptyline [facility] Clomipramine [facility] Desipramine [facility] Doxepin [facility] Imipramine [facility] Nortriptyline [facility] Urine Creatinine CANCELED mg/dL [facility] Nitrite [facility] Glutaraldehyde [facility]ED [facility] pH CANCELED 10/08/2024 7:09 AM EDT [facility] Comment:The released value 5 .6 was canceled by YAQUELIN on 10/08/2024 07:09 Specific [place] CANCELED 10/09/19 7:09 AM EDT [facility] Comment:The released value 1 .009 was canceled by MABLEE on 10/08/2024 07:09 Bleach CANCELED [facility] Pyridinium Chlorochromate [facility]ELED [facility] Urine 10/07/2024 10:5 0 PM EDT 10/08/2024 2:07 AM EDT Narrative [facility] - 10/08/2024 7:09 AM EDT See accn [id number] us Gerri Peterson MD URINE ORDERABLES Edited Result - Final [facility] [address] [place] [address], [facility] * Ova and Parasite Comprehensive w/ Giardia/Crypto (10/07/2024 10:50 PM EDT) O & P Method: Concentration and Trichrome Stain [facility] Results No Amoeba, Ova, Or Parasites Seen. -- O and P examination of additional specimens is recommended only for symptomatic patients, immunosuppressed patients or those with an appropriate travel history. [facility] Feces FECES / Unknown 10/07/2024 1 0:50 PM EDT 10/08/2024 1:53 AM EDT Comment:F Bisi Hernandez DO MICROBIOLOGY - GENERAL ORDERABLE S Final Result [facility] [address] [facility] [place] [id number], [facility] * Enteric Pathogen Panel (10/07/2024 10:50 PM EDT) Campylobacter Group (C. ecoli, C. jejuni, C. trino) Not Detected Not Detected 10/08/2024 4:40 AM EDT [facility] Salmonella species Not Detected Not Detected 10/08/2024 4:40 AM EDT [facility] Shigella species Not Detected Not Detected 10/08/2024 4:40 AM EDT [facility] Vibrio Group (Vibrio cholerae, Vibrio parahaemolyticus) Not Detected Not Detected 10/08/2024 4:40 AM EDT [facility] Yersinia enterocolitica Not Detected Not Detected 10/08/2024 4:40 AM EDT [facility] Shiga toxin 1 Not Detected Not Detected 10/08/2024 4:40 AM EDT [facility] Shiga toxin 2 Not Detected Not Detected 10/08/2024 4:40 AM EDT [facility] Norovirus Not Detected Not Detected 10/08/2024 4:40 AM EDT [facility] Rotavirus Not Detected Not Detected 10/08/2024 4:40 AM EDT [facility] Comment: The Enteric Pathogen Panel [...] ORDERABLE S Final Result Performing Organization Address [facility]/ZIP Co de Phone Number [facility] [address] * Hepatitis C Antibody (10/07/2024 6:38 PM EDT) HCV Ab Nonreactive Nonreactive 10/07/2024 7:56 PM EDT [facility] Comment:Health Department no tified in accordance with reportable infectious disease guidelines. Serum 10/07/2024 6:38 PM EDT 10/07/2024 6:52 PM EDT Narrative [facility] - 10/07/2024 7:56 PM EDT Antibodies to HCV not detected; does not exclude the possibility of exposure to HCV. Gerri Peterson MD LAB BLOOD ORDERABLES Final Resu lt Performing Organization Address [facility] Co de Phone Number [facility] [address] * Hepatitis B Surface Antibody, Quantitati (10/07/2024 6:38 PM EDT) Hep B S Ab Nonreactive Nonreactive 10/07/2024 8:00 PM EDT [facility] HBSAB NUMBER 7.88 0.00 - 7.99 mIU/mL 10/07/2024 8:00 PM EDT [facility] Serum 10/07/2024 6:38 PM EDT 10/07/2024 6:52 PM EDT Narrative [facility] - 10/07/2024 8:00 PM EDT Individual is considered not immune to HBV infection. Gerri Peterson MD LAB BLOOD ORDERABLES Final Resu lt Performing Organization Address City/[facility]/ZIP Co de Phone Number [facility] [address] [facility] * Hepatitis B surface antigen (10/07/2024 6:38 PM EDT) Hep B Surface Ag Nonreactive Nonreactive 10/07/2024 7:51 PM EDT [facility] Comment:Health Department no tified in accordance with reportable infectious disease guidelines. Serum 10/07/2024 6:38 PM EDT 10/07/2024 6:52 PM EDT [facility] - 10/07/2024 7:51 PM EDT Specimen is considered negative for HBsAg. Gerri Peterson MD LAB BLOOD ORDERABLES Final Resu lt Performing Organization Address City/[facility]/ZIP Co de Phone Number [address] * Hepatitis A Antibody Total (10/07/2024 6:38 PM EDT) Anti-HAV Total (IgG + IgM) Nonreactive 10/07/2024 7:53 PM EDT [facility] Serum 10/07/2024 6:38 PM EDT 10/07/2024 6:52 PM EDT [facility] - 10/07/2024 7:53 PM EDT HAV antibodies not detected Gerri Peterson MD LAB BLOOD ORDERABLES Final Resu lt [facility] [address] [place] [address]. [address] * Hepatitis A IgM (10/07/2024 6:38 PM EDT) Hep A IgM Nonreactive Nonreactive 10/07/2024 7:46 PM EDT [facility] Serum 10/07/2024 6:38 PM EDT 10/07/2024 6:52 PM EDT [facility] - 10/07/2024 7:46 PM EDT IgM anti-HAV not detected. Does not exclude the possibility of exposure to or infection with HAV. Levels of IgM anti-HAV may be below the cut-off in early infection. us Gerri Peterson MD LAB BLOOD ORDERABLES Final Resu lt [facility] [address] [place] [address], [facility] * (ABNORMAL) Lipid Profile (10/07/2024 6:37 PM EDT) Non-HDL Cholesterol, Calculated See Note 0 - 129 mg/dL 10/07/2024 7:42 PM EDT [facility] Comment: Desirable: < 130 mg/dL Above Desirable: 130-159 mg/dL Borderline High: 160-189 mg/dL High: 190-219 mg/dL Very High: > 219 mg/dL Unable to calculate result either because contributing result(s) are outside of reportable range or are not available. Cholesterol, Total <25 0 - 200 mg/dL 10/07/2024 7:42 PM EDT [facility] Triglycerides 30 10 - 149 mg/dL 10/07/2024 7:42 PM EDT [facility] HDL 4(L) 60 - 92 mg/dL 10/07/2024 7:42 PM EDT [facility] Comment: LIPID PROFILE INTERPRETATION CHOLESTEROL,TOTAL(mg/dL) [...] Cholesterol See Note mg/dL 7:42 PM EDT [facility] Comment:Unable to calculate result either because contributing result(s) are outside of reportable range or are not available. Plasma 10/07/2024 6:37 PM EDT 10/07/2024 7:06 PM EDT [facility] - 10/07/2024 7:42 PM EDT LDL cholesterol calculated using the Friedewald equation. Gerri Peterson MD LAB BLOOD ORDERABLES Final Resu lt [facility] [address] [place] [address], [facility] * (ABNORMAL) Alpha 1 Antitrypsin AAT Quant & Mutation (10/07/2024 6:37 PM EDT) A-1 Antitrypsin 99(L) 101 - 187 mg/dL 10/09/2024 4:28 AM EDT [facility] A-1 Antitrypsin Pheno Comment 10/10/2024 4:05 PM EDT [facility] Comment: A1A Phenotype is consistent with a heterozygous phenotype consisting of one M (normal) allele and one allele that cannot be identified at this time. The unknown allele is not consistent with Z (deficient), S (deficient), or F (deficient). MM Phenotype is considered to be normal , producing normal serum levels of xttgh-8-aqlbvwej inhibitor and not associated with clinical disease. [...] 10/10/2024 4:08 PM EDT PERFORMED AT: [facility] [address] [id number] PUBLIC WORKS SUPERVISOR: Bassam Khalil, PHONE: [phone] PERFORMED AT: [facility] [address] [id number] PUBLIC WORKS SUPERVISOR: Mandy Abdul MD PHONE: [phone] us eGrri Peterson MD LAB BLOOD ORDERABLES Final Resu lt [facility] [address] [facility] * (ABNORMAL) CMV IgG Antibody (10/07/2024 6:37 PM EDT) CMV IgG Positive(A ) Negative 10/07/2024 8:26 PM EDT [facility] CMV IGG NUM 8.40(H) 0.00 - 0.59 U/mL 10/07/2024 8:26 PM EDT [facility] Serum 10/07/2024 6:37 PM EDT 10/07/2024 6:50 PM EDT us Gerri Peterson MD LAB BLOOD ORDERABLES Final Resu lt [facility] [address] [facility] * HIV-1 and HIV-2 Antibodies w Reflex (10/07/2024 6:37 PM EDT) HIV 1+2 AB/AGN Nonreactive Nonreactive 10/07/2024 7:54 PM EDT [facility] Serum 10/07/2024 6:37 PM EDT 10/07/2024 7:06 PM EDT Narrative [facility] - 10/07/2024 7:54 PM EDT \HIVRNR us Gerri Peterson MD LAB BLOOD ORDERABLES Final Resu lt [facility] [address] [facility]. [address] * TSH (Thyroid Stimulating Hormone) (10/07/2024 6:37 PM EDT) Pathologist [facility] TSH 0.81 0.45 - 4.12 uIU/mL 10/07/2024 8:17 PM EDT [facility] Serum 10/07/2024 6:37 PM EDT 10/07/2024 6:50 PM EDT us Gerri Peterson MD LAB BLOOD ORDERABLES Final Resu lt Performing Organization Address [facility] Co de Phone Number [facility] [address] [facility] * Katie-Watkins virus early antigen antibody, IgG (10/07/2024 6:37 PM EDT) [facility] EBV Early Antigen Ab, IgG <9.0 0.0 - 8.9 U/mL 10/09/2024 2:16 PM EDT [facility] Comment: Negative < 9.0 Equivocal 9.0 - 10.9 Positive >10.9 Serum Frozen 10/07/2024 6:37 PM EDT 10/09/2024 3:07 PM EDT Narrative [facility] - 10/09/2024 3:07 PM EDT PERFORMED AT: [facility] [id number] PUBLIC WORKS SUPERVISOR: Bassam Khalil, PhD PHONE: [phone] us eGrri Peterson MD LAB BLOOD ORDERABLES Final Resu lt Performing Organization Address City/[facility]/ZIP Co de Phone Number [facility] [address] [facility] * (ABNORMAL) Varicella zoster antibody, IgG (10/07/2024 6:37 PM EDT) [facility] Varicella IgG Positive( A) Negative S/CO 10/07/2024 8:34 PM EDT [facility] Comment:Result indicates the presence of detectable VZV IgG antibodies. A positive result is generally indicative of exposure to the pathogen or administration of specific immunoglobulins, but it is no indication of active infection or stage of disease. This test is not approved for determining vaccine-induced immunity to varicella zoster virus. VZV NUM 6.76(H) 0.00 - 0.99 S/CO 10/07/2024 8:34 PM EDT [facility] Serum 10/07/2024 6:37 PM EDT 10/07/2024 6:50 PM EDT Gerri Peterson MD LAB BLOOD ORDERABLES Final Resu lt Performing Organization Address [facility] Co de Phone Number [facility] [address] [place] [address] * Toxoplasma gondii antibody, IgG (10/07/2024 6:37 PM EDT) Toxoplasma Gondii IgG <3.0 0.0 - 7.1 IU/mL 10/09/2024 7:53 AM EDT [facility] Comment: Negative <7.2 Equivocal 7.2 - 8.7 Positive >8.7 Serum 10/07/2024 6:37 PM EDT 10/09/2024 8:07 AM EDT Narrative [facility] - 10/09/2024 8:07 AM EDT PERFORMED AT: [address] [id number] PUBLIC WORKS SUPERVISOR: Bassam Khalil, PhD PHONE: [phone] Gerri Peterson MD LAB BLOOD ORDERABLES Final Resu lt Performing Organization Address [facility] Co de Phone Number [facility] [address] * Syphilis Screening (Trepia) (10/07/2024 6:37 PM EDT) Treponema Pallidum Negative Negative 10/07/2024 8:27 PM EDT [facility] Comment: No serological evidence of infection with Treponema pallidum (incubating or early primary syphilis cannot be excluded). Serum 10/07/2024 6:37 PM EDT 10/07/2024 6:50 PM EDT Gerri Peterson MD LAB BLOOD ORDERABLES Final Resu lt Performing Organization Address [facility] Co de Phone Number [facility] [address] * Strongyloides Ab (10/07/2024 6:37 PM EDT) Strongyloides Ab Negative Negative 10/11/19 11:51 AM EDT [facility] Serum 10/07/2024 6:37 PM EDT 10/10/2024 12:07 PM EDT Narrative [facility] - 10/10/2024 12:07 PM EDT PERFORMED AT: [address] [id number] PUBLIC WORKS SUPERVISOR: Mandy Abdul MD PHONE: [phone] Gerri Peterson MD LAB BLOOD ORDERABLES Final Resu lt Performing Organization Address [facility] de Phone Number [facility] [address] [place] [address] * Phosphatidylethanol Confirmation, B (10/07/2024 6:37 PM EDT) PETH 16:0/18.1 (POPETH) <10 Cutoff: 10 ng/mL 10/10/2024 10:42 AM EDT [facility] Comment: Phosphatidylethanol (PEth) homologues result [...] Cutoff: 10 ng/mL 10/10/2024 10:42 AM EDT [facility] Comment: PEth 16:0/18:2 (PLPEth) Reference ranges are not well established PEth Interpretation Negative. 10/10 10:42 AM EDT [facility] Comment: ADDITIONAL INFORMATION This report is intended for use in clinical monitoring and management of patients. It is not intended for use in employment-related testing. This test was developed and its performance characteristics determined by [facility] in a manner consistent with CLIA requirements. This test has not been cleared or approved by the U.S. Food and Drug Administration. Test Performed by: [facility] [place] [address] Dictaphone Operator: Kathy Ortiz Ph.D.; CLIA# [id number] Whole Blood 10/07/2024 6:37 PM EDT 10/10/2024 10:42 AM EDT us Gerri Peterson MD LAB BLOOD ORDERABLES Final Resu lt [facility] [address] [place] [address], [facility] * (ABNORMAL) MMR(IgG) Panel (Measles, Mumps, Rubella) (10/07/2024 6:37 PM EDT) Mumps IgG Positive 10/07/2024 8:26 PM EDT [facility] MUMPS IGG NUM 77.80(H) 0.0 - 8.9 U/mL 10/07/2024 8:26 PM EDT [facility] Rubella IgG Scr Positive 10/07/2024 8:28 PM EDT [facility] RUB NUM 3.04(H) 0.00 - 0.89 INDEX 10/07/2024 8:28 PM EDT [facility] Rubeola Ab, IgG Positive 10/07/2024 8:26 PM EDT [facility] RUB IGG NUM 192.00(H) 0.00 - 13.40 U/mL 10/07/2024 8:26 PM EDT [facility] Serum 10/07/2024 6:37 PM EDT 10/07/2024 6:50 PM EDT Narrative [facility] - 10/07/2024 8:28 PM EDT Presence of detectable measles virus IgG antibodies. A positive result generally indicates exposure to measles virus or previous vaccination. Presence of detectable mumps virus IgG antibodies. A positive result generally indicates past exposure to mumps virus or previous vaccination. Sample is considered positive for IgG antibodies to rubella virus. Result [facility] Gerri Peterson MD LAB BLOOD ORDERABLES Final Resu lt Performing Organization Address City/[facility] Co de Phone Number [facility] [address] * IgA (10/07/2024 6:37 PM EDT) IgA 227.0 70.0 - 400.0 mg/dL 10/08/2024 11:07 AM EDT [facility] Comment:Please interpret the se findings in conjunction with clinical findings, protein electrophoresis, and immunotyping/immunofixation results. Serum 10/07/2024 6:37 PM EDT 10/07/2024 6:50 PM EDT Gerri Peterosn MD LAB BLOOD ORDERABLES Final Resu lt [facility] [address] [facility] * Ethanol, Serum (10/07/2024 6:37 PM EDT) Ethanol <10 0 - 10 mg/dL 10/07/2024 8:36 PM EDT [facility] Serum 10/07/2024 6:37 PM EDT 10/07/2024 6:50 PM EDT Gerri Peterson MD LAB BLOOD ORDERABLES Final Resu lt Performing Organization Address [facility]/ZIP Co de Phone Number [facility] [address] * ABO/Rh - Second (10/07/2024 6:37 PM EDT) ABO Grouping O 10/07/2024 7:16 PM EDT [facility] Rh Type Positive 10/07/2024 7:16 PM EDT [facility] Blood 10/07/2024 6:37 PM EDT 10/07/2024 6:56 PM EDT Narrative [facility] - 10/07/2024 7:18 PM EDT This is not a duplicate order. It is required that ABO be drawn twice for LIVER TRANSPLANT Gerri Peterson MD BLOOD BANK TEST ORDERABLES Denisse l Result Performing Organization Address [facility] Co de Phone Number [facility] [address] * ABO/Rh- Initial (10/07/2024 6:37 PM EDT) ABO Grouping O 10/07/2024 7:59 PM EDT [facility] Rh Type Positive 10/07/2024 7:59 PM EDT [facility] Blood 10/07/2024 6:37 PM EDT 10/07/2024 7:25 PM EDT Gerri Peterson MD BLOOD BANK TEST ORDERABLES Denisse l Result Performing Organization Address [facility]/ZIP Co de Phone Number [facility] [address] * X-ray Mandible minimum 4-views (10/07/2024 [...] EXAM: US ABDOMEN COMPLETE EXAM: US DUPLEX [id number] COMPLETE INDICATION: elevated bilirubin COMPARISON: Ultrasound and [...] EXAM: US ABDOMEN COMPLETE EXAM: US DUPLEX [id number] COMPLETE INDICATION: elevated bilirubin COMPARISON: Ultrasound and [...] 4:26 PM EDT us Bisi Hernandez DO [facility] [place] [place] US ORDERABLES Final Result * US Duplex Duv-Mgn-Gusejrs Comp (10/07/2024 3:48 PM EDT) Anatomical Region [...] EXAM: US ABDOMEN COMPLETE EXAM: US DUPLEX [id number] COMPLETE INDICATION: elevated bilirubin COMPARISON: Ultrasound and [...] EXAM: US ABDOMEN COMPLETE EXAM: US DUPLEX [id number] COMPLETE INDICATION: elevated bilirubin COMPARISON: Ultrasound and [...] 4:26 PM EDT us Bisi Hernandez DO [facility] [place] [place] US ORDERABLES Final Result * CARISA Rhythm Strip - Scan (10/07/2024 3:30 PM EDT) us Scanning Uchhim SCAN DOCS - NO RESULTS Final Res ult * (ABNORMAL) Protime-INR (10/07/2024 6:00 AM EDT) Protime 26.9(H) 12.1 - 15.1 seconds 10/07/2024 6:55 AM EDT [facility] INR 2.4(H) 0.9 - 1.1 10/07/2024 6:55 AM EDT [facility] Comment: RECOMMENDED THERAPEUTIC RANGES USING INR : Stable oral anticoagulant therapy: 2.0 - 3.0 Mechanical prosthetic heart valve: 2.5 - 3.5 Recurrent acute myocardial infarction: 2.5 - 3.5 Plasma 10/07/2024 6:00 AM EDT 10/07/2024 6:39 AM EDT us Eileen Schroeder MD, PhD LAB BLOOD ORDERABLES Final Result Performing Organization Address [facility] Co de Phone Number [facility] [address] * (ABNORMAL) Hepatic Function Panel (10/07/2024 6:00 AM EDT) Total Bilirubin 9.7(H) 0.0 - 1.5 mg/dL 10/07/2024 7:10 AM EDT [facility] Bilirubin, Direct 5.21(H) 0.00 - 0.40 mg/dL 10/07/2024 7:10 AM EDT [facility] AST 39 13 - 39 U/L 10/07/2024 7:10 AM EDT [facility] ALT 18 7 - 52 U/L 10/07/2024 7:10 AM EDT [facility] Alkaline Phosphatase 98 36 - 125 U/L 10/07/2024 7:10 AM EDT [facility] Total Protein 4.8(L) 6.4 - 8.9 g/dL 10/07/2024 7:10 AM EDT [facility] Albumin 3.6 3.5 - 5.7 g/dL 10/07/2024 7:10 AM EDT [facility] Bilirubin, Indirect 4.49(H) 0.00 - 1.10 mg/dL 10/07/2024 7:10 AM EDT [facility] Plasma 10/07/2024 6:00 AM EDT 10/07/2024 6:39 AM EDT us Eileen Schroeder MD, PhD LAB BLOOD ORDERABLES Final Result Performing Organization Address [facility]/ZIP Co de Phone Number [facility] [address] * Magnesium (10/07/2024 6:00 AM EDT) Magnesium 1.7 1.5 - 2.5 mg/dL 10/07/2024 7:10 AM EDT [facility] Plasma 10/07/2024 6:00 AM EDT 10/07/2024 6:39 AM EDT us Eileen Schroeder MD, PhD LAB BLOOD ORDERABLES Final Result [facility] [address] [place] [address], [facility] * (ABNORMAL) Renal Function Panel w/EGFR (10/07/2024 6:00 AM EDT) Sodium 132(L) 133 - 146 mmol/L 10/07/2024 7:10 AM EDT [facility] Potassium 3.9 3.5 - 5.3 mmol/L 10/07/2024 7:10 AM EDT [facility] Chloride 103 98 - 110 mmol/L 10/07/2024 7:10 AM EDT [facility] CO2 19(L) 21 - 33 mmol/L 10/07/2024 7:10 AM EDT [facility] Anion Gap 10 3 - 16 mmol/L 10/07/2024 7:10 AM EDT [facility] BUN 64(H) 7 - 25 mg/dL 10/07/2024 7:10 AM EDT [facility] Creatinine 3.38(H) 0.60 - 1.30 mg/dL 10/07/2024 7:10 AM EDT [facility] Glucose 111(H) 70 - 100 mg/dL 10/07/2024 7:10 AM EDT [facility] Calcium 9.1 8.6 - 10.3 mg/dL 10/07/2024 7:10 AM EDT [facility] Phosphorus 4.2 2.1 - 4.7 mg/dL 10/07/2024 7:10 AM EDT [facility] Albumin 3.6 3.5 - 5.7 g/dL 10/07/2024 7:10 AM EDT [facility] Osmolality, Calculated 293 278 - 305 mOsm/kg 10/07/2024 7:10 AM EDT [facility] EGFR 22 10/07/2024 7:10 AM EDT [facility] Comment:As of 2021, the estimated [...] BLOOD ORDERABLES Final Result Performing Organization Address City/State/[facility] Co de Phone Number [facility] [address] * (ABNORMAL) CBC (10/07/2024 6:00 AM EDT) WBC 3.3(L) 3.8 - 10.8 10E3/uL 10/07/2024 7:55 AM EDT [facility] RBC 2.06(L) 4.20 - 5.80 10E6/uL 10/07/2024 7:55 AM EDT [facility] Hemoglobin 7.4(L) 13.2 - 17.1 g/dL 10/07/2024 7:55 AM EDT [facility] Hematocrit 21.5(L) 38.5 - 50.0 % 10/07/2024 7:55 AM EDT [facility] MCV 104.1(H) 80.0 - 100.0 fL 10/07/2024 7:55 AM EDT [facility] MCH 35.8(H) 27.0 - 33.0 pg 10/07/2024 7:55 AM EDT [facility] MCHC 34.4 32.0 - 36.0 g/dL 10/07/2024 7:55 AM EDT [facility] RDW 17.5(H) 11.0 - 15.0 % 10/07/2024 7:55 AM EDT [facility] Platelets 35(L) 140 - 400 10E3/uL 10/07/2024 7:55 AM EDT [facility] Comment: Specimen checked for clots. None detected. Slide Reviewed for PLT Clumps. None Seen. _Platelet Morphology Normal _Platelets Appear Decreased Platelet Estimate Decreased 10/07/2024 7:55 AM EDT [facility] MPV 8.0 7.5 - 11.5 fL 10/07/2024 7:55 AM EDT [facility] Whole Blood 10/07/2024 6:00 AM EDT 10/07/2024 6:40 AM EDT [facility] - 10/07/2024 7:55 AM EDT Peripheral blood smear was scanned per review criteria approved by the laboratory medical billing service. us Eileen Schroeder MD, PhD LAB BLOOD ORDERABLES Final Result Performing Organization Address [facility]/ZIP Co de Phone Number [facility] [address] * AFP Tumor Marker (10/07/2024 6:00 AM EDT) Pathologist [facility] [place] AFP-Tumor Marker 2.0 0.0 - 9.0 ng/mL 10/07/2024 7:11 AM EDT [facility] Serum 10/07/2024 6:00 AM EDT 10/07/2024 6:39 AM EDT [facility] - 10/07/2024 7:11 AM EDT The testing method for AFP is a chemiluminescent immunoassay manufactured by [employer] Concentrations of AFP obtained by different assay methods or kits may vary and cannot be used interchangeably. AFP results cannot be interpreted as absolute evidence of the presence or absence of malignant disease. us Shila Rivera MD LAB BLOOD ORDERABLES Final Resul t [facility] [address] * Vancomycin, random (10/07/2024 6:00 AM EDT) Vancomycin Random 21.1 ug/mL 10/07/2024 7:08 AM EDT [facility] Comment:Reference range not established for this test. Plasma 10/07/2024 6:00 AM EDT 10/07/2024 6:39 AM EDT Kiet Gardiner PharmD LAB BLOOD ORDERABLES Final Re sult [facility] [address] [facility] * Osmolality (10/06/2024 2:50 PM EDT) Osmolality, Measured 304 278 - 305 mOsm/kg 10/06/2024 3:49 PM EDT [facility] Serum 10/06/2024 2:50 PM EDT 10/06/2024 2:56 PM EDT Chari Vanegas MD LAB BLOOD ORDERABLES Final Resul t Performing Organization Address [facility] Co de Phone Number [facility] [address] [facility] * CT Head WO contrast (10/06/2024 [...] Eileen Schroeder MD, PhD IMG CT ORDERABLES [facility] Result * Chloride, urine, random (10/06/2024 1:25 PM EDT) Chloride, Ur <15 mmol/L 10/06/2024 1:56 PM EDT [facility] Comment:Reference range not established for this test. Urine 10/06/2024 1:25 PM EDT 10/06/2024 1:32 PM EDT Chari Vanegas MD URINE ORDERABLES Final Result [facility] [address] [place] [address], [facility] * Potassium, urine, random (10/06/2024 1:25 PM EDT) Potassium Urine Random 50.0 mmol/L 10/06/2024 1:56 PM EDT [facility] Comment:Reference range not established for this test. Urine 10/06/2024 1:25 PM EDT 10/06/2024 1:32 PM EDT us Chari Vanegas MD URINE ORDERABLES Final Result Performing Organization Address [facility] de Phone Number [facility] [address] [facility] * Sodium, urine, random (10/06/2024 1:25 PM EDT) Sodium, Ur <10 mmol/L 10/06/2024 1:56 PM EDT [facility] Comment:Reference range not established for this test. Urine 10/06/2024 1:25 PM EDT 10/06/2024 1:32 PM EDT us Chari Vanegas MD URINE ORDERABLES Final Result Performing Organization Address [facility] de Phone Number [facility] [address] [facility] * Creatinine, Urine, Random (10/06/2024 1:25 PM EDT) Creatinine, Urine 87.40 mg/dL 10/06/2024 1:56 PM EDT [facility] Comment:Reference range not established for this test. Urine 10/06/2024 1:25 PM EDT 10/06/2024 1:32 PM EDT us Chari Vanegas MD URINE ORDERABLES Final Result Performing Organization Address [facility] de Phone Number [facility] [address] [facility] * Osmolality, Urine (10/06/2024 1:25 PM EDT) Osmolality, Ur 386 50 - 1,200 mOsm/kg 10/06/2024 1:55 PM EDT [facility] Urine 10/06/2024 1:25 PM EDT 10/06/2024 1:32 PM EDT us Chari Vanegas MD URINE ORDERABLES Final Result [facility] [address] [facility] [place] [address], [facility] * Urine Drug Confirmation (10/06/2024 11:51 AM EDT) BARBITURATES NOT PRESENT 10/09/2024 3:23 PM EDT [facility] Comment:Results were recheck ed. BENZODIAZEPINES PRESENT 3:23 PM EDT [facility] Nordiazepam 3 ng/mL 10/09/2024 3:23 PM EDT [facility] Comment:Results were recheck ed. Temazepam 8 ng/mL 10/09/2024 3:23 PM EDT [facility] Comment:Results were recheck ed. CANNABINOIDS NOT PRESENT 10/09/2024 3:23 PM EDT [facility] GLAZIER [employer]PERVIS[employer] STIMULANTS NOT PRESENT 3:23 PM EDT [facility] OPIOID ANALGESICS PRESENT 025 3:23 PM EDT [facility] Oxycodone 329 ng/mL 10/09/2024 3:23 PM EDT [facility] Oxymorphone 61 ng/mL 10/09/2024 3:23 PM EDT [facility] Tramadol >1000 ng/mL 10/09/2024 3:23 PM EDT [facility] OPIOID ANTAGONISTS NOT PRESENT 10/09 3:23 PM EDT [facility] SEDATIVES/MUSCLE RELAXANTS NOT PRESENT 10/09/2024 3:23 PM EDT [facility] TRICYCLIC ANTIDEPRESSANTS NOT PRESENT 10/09/2024 3:23 PM EDT [facility] Urine 10/06/2024 11:5 1 AM EDT 10/06/2024 1:13 PM EDT us Bisi Hernandez DO URINE ORDERABLES Final Result [facility] [address] [place], [place] [address] * (ABNORMAL) Urine Drug Screen Reflex to Confirmation (10/06/2024 11:51 AM EDT) Amphetamine, 500 ng/mL Cutoff Negative Negative 10/06/2024 1:13 PM EDT [facility] Barbiturates UR, 300 ng/mL Cutoff Negative Negative 10/06/2024 1:13 PM EDT [facility] Buprenorphine, 5 ng/mL Cutoff Negative Negative 10/06/2024 1:13 PM EDT [facility] Benzodiazepines UR, 300 ng/mL Cutoff Negative Negative 10/06/2024 1:13 PM EDT [facility] Cocaine UR, 300 ng/mL Cutoff Negative Negative 10/06/2024 1:13 PM EDT [facility] Methadone, UR, 300 ng/mL Cutoff Negative Negative 10/06/2024 1:13 PM EDT [facility] Opiates UR, 300 ng/mL Cutoff Negative Negative 10/06/2024 1:13 PM EDT [facility] Oxycodone, 100 ng/mL Cutoff Presumptive Positive(A) Negative 10/06/2024 1:13 PM EDT [facility] Tricyclic Antidepressants, 300 ng/mL Cutoff Negative Negative 10/06/2024 1:13 PM EDT [facility] Comment:This test has been d eveloped and its performance characteristics determined by [facility] which is certified under [...] Cutoff Negative Negative 10/06/2024 1:13 PM EDT [facility] Comment:This is a screening method only and may be associated with false positive and/or false negative results. Results are not definitive without additional confirmatory testing by mass spectrometry. Fentanyl, 2 ng/mL Cutoff Negative Negative 10/06/2024 1:13 PM EDT [facility] Comment:This test has been d eveloped and its performance characteristics determined by [facility] which is certified under [...] AM EDT 10/06/2024 11:58 AM EDT Narrative [facility] - 10/06/2024 1:13 PM EDT CONFIRMATION TO FOLLOW Bisi Hernandez DO URINE ORDERABLES Final Result Performing Organization Address City/[facility]/ZIP Co de Phone Number [facility] [address] [facility]. [address] * Chloride, urine, random (10/06/2024 11:51 AM EDT) Chloride, Ur <15 mmol/L 10/06/2024 1:13 PM EDT [facility] Comment:Reference range not established for this test. Urine 10/06/2024 11:5 1 AM EDT 10/06/2024 11:57 AM EDT Bisi Hernandez DO URINE ORDERABLES Final Result Performing Organization Address [facility] Co de Phone Number [facility] [address] [facility]. [address] * Potassium, urine, random (10/06/2024 11:51 AM EDT) Potassium Urine Random 49.0 mmol/L 10/06/2024 1:13 PM EDT [facility] Comment:Reference range not established for this test. Urine 10/06/2024 11:5 1 AM EDT 10/06/2024 11:57 AM EDT Bisi Hernandez DO URINE ORDERABLES Final Result Performing Organization Address City/[facility] Co de Phone Number [facility] [address] [facility]. [address] * Sodium, urine, random (10/06/2024 11:51 AM EDT) Sodium, Ur <10 mmol/L 10/06/2024 1:13 PM EDT [facility] Comment:Reference range not established for this test. Urine 10/06/2024 11:5 1 AM EDT 10/06/2024 11:57 AM EDT Bisi Hernandez DO URINE ORDERABLES Final Result [facility] [address] [place] [address], [facility] * Urinalysis w/Rfl to Microscopic (10/06/2024 11:51 AM EDT) Color, UA Yellow Yellow,Straw 10/06/2024 12:25 PM EDT [facility] Clarity, UA Clear Clear 10/06/2024 12:25 PM EDT [facility] Specific [place], UA 1.014 1.005 - 1.035 10/06/2024 12:25 PM EDT [facility] pH, UA 6.0 5.0 - 8.0 10/06/2024 12:25 PM EDT [facility] Protein, UA Negative Negative mg/dL 10/06/2024 12:25 PM EDT [facility] Glucose, UA Negative Negative mg/dL 10/06/2024 12:25 PM EDT [facility] Ketones, UA Negative Negative mg/dL 10/06/2024 12:25 PM EDT [facility] Bilirubin, UA Negative Negative 10/06/2024 12:25 PM EDT [facility] Blood, UA Negative Negative 10/06/2024 12:25 PM EDT [facility] Nitrite, UA Negative Negative 10/06/2024 12:25 PM EDT [facility] Urobilinogen, UA <2.0 0.2 - 1.9 mg/dL 10/06/2024 12:25 PM EDT [facility] Leukocyte Esterase, UA Negative Negative 10/06/2024 12:25 PM EDT [facility] Urine 10/06/2024 11:5 1 AM EDT 10/06/2024 11:57 AM EDT Narrative [facility] - 10/06/2024 12:25 PM EDT Microscopic testing is not performed when the dipstick is negative for blood, leukocyte, protein and nitrite. us Bisi Hernandez DO URINE ORDERABLES Final Result Performing Organization Address [facility]/ZIP Co de Phone Number [facility] [address] * Lactic Acid, STAT (10/06/2024 7:38 AM EDT) Lactate 0.9 0.5 - 2.2 mmol/L 10/06/2024 8:05 AM EDT [facility] Plasma 10/06/2024 7:38 AM EDT 10/06/2024 7:42 AM EDT us Chari Vanegas MD LAB BLOOD ORDERABLES Final Resul t Performing Organization Address [facility]/ZIP Co de Phone Number [facility] [address] * (ABNORMAL) CBC, STAT (10/06/2024 7:37 AM EDT) WBC 5.6 3.8 - 10.8 10E3/uL 10/06/2024 8:22 AM EDT [facility] RBC 2.50(L) 4.20 - 5.80 10E6/uL 10/06/2024 8:22 AM EDT [facility] Hemoglobin 9.0(L) 13.2 - 17.1 g/dL 10/06/2024 8:22 AM EDT [facility] Hematocrit 25.3(L) 38.5 - 50.0 % 10/06/2024 8:22 AM EDT [facility] MCV 101.2(H) 80.0 - 100.0 fL 10/06/2024 8:22 AM EDT [facility] MCH 36.0(H) 27.0 - 33.0 pg 10/06/2024 8:22 AM EDT [facility] MCHC 35.6 32.0 - 36.0 g/dL 10/06/2024 8:22 AM EDT [facility] RDW 17.7(H) 11.0 - 15.0 % 10/06/2024 8:22 AM EDT [facility] Platelets 52(L) 140 - 400 10E3/uL 10/06/2024 8:22 AM EDT [facility] Comment: Specimen checked for clots. None detected. Slide Reviewed for PLT Clumps. None Seen. MPV 8.2 7.5 - 11.5 fL 10/06/2024 8:22 AM EDT [facility] Whole Blood 10/06/2024 7:37 AM EDT 10/06/2024 7:43 AM EDT us Chari Vanegas MD LAB BLOOD ORDERABLES Final Resul t [facility] [address] [place] [address], [facility] * (ABNORMAL) Comprehensive Metabolic Panel (10/06/2024 7:37 AM EDT) Sodium 129(L) 133 - 146 mmol/L 10/06/2024 8:16 AM EDT [facility] Potassium 4.4 3.5 - 5.3 mmol/L 10/06/2024 8:16 AM EDT [facility] Chloride 100 98 - 110 mmol/L 10/06/2024 8:16 AM EDT [facility] CO2 18(L) 21 - 33 mmol/L 10/06/2024 8:16 AM EDT [facility] Anion Gap 11 3 - 16 mmol/L 10/06/2024 8:16 AM EDT [facility] BUN 62(H) 7 - 25 mg/dL 10/06/2024 8:16 AM EDT [facility] Creatinine 3.40(H) 0.60 - 1.30 mg/dL 10/06/2024 8:16 AM EDT [facility] Glucose 98 70 - 100 mg/dL 10/06/2024 8:16 AM EDT [facility] Calcium 9.5 8.6 - 10.3 mg/dL 10/06/2024 8:16 AM EDT [facility] Total Bilirubin 14.3(H) 0.0 - 1.5 mg/dL 10/06/2024 8:16 AM EDT [facility] AST 57(H) 13 - 39 U/L 10/06/2024 8:16 AM EDT [facility] ALT 29 7 - 52 U/L 10/06/2024 8:16 AM EDT [facility] Alkaline Phosphatase 158(H) 36 - 125 U/L 10/06/2024 8:16 AM EDT [facility] Total Protein 5.6(L) 6.4 - 8.9 g/dL 10/06/2024 8:16 AM EDT [facility] Albumin 3.6 3.5 - 5.7 g/dL 10/06/2024 8:16 AM EDT [facility] Osmolality, Calculated 286 278 - 305 mOsm/kg 10/06/2024 8:16 AM EDT [facility] EGFR 22 10/06/2024 8:16 AM EDT [facility] Comment:As of 2021, the estimated [...] MD LAB BLOOD ORDERABLES Final Resul t [facility] [address] [place] [address], [facility] * (ABNORMAL) Venous Blood Gas, Line/Syringe, STAT (10/06/2024 7:37 AM EDT) PH-Line Draw 7.27(L) 7.32 - 7.42 10/06/2024 7:46 AM EDT [facility] PCO2-Line Draw 36(L) 41 - 51 mm Hg 10/06/2024 7:46 AM EDT [facility] PO2-Line Draw 44(H) 25 - 40 mm Hg 10/06/2024 7:46 AM EDT [facility] HCO3-Line Draw 17(L) 24 - 28 mmol/L 10/06/2024 7:46 AM EDT [facility] CO2 Content-Line Draw 18(L) 25 - 29 mmol/L 10/06/2024 7:46 AM EDT [facility] Base Excess-Line Draw -9.6(L) -2.0 - 3.0 mmol/L 10/06/2024 7:46 AM EDT [facility] %HBO2-Line Draw 69.8 40.0 - 70.0 % 10/06/2024 7:46 AM EDT [facility] Carboxyhgb-Ludivina e Draw 0.7 % 10/06/2024 7:46 AM EDT [facility] Comment: CARBOXYHEMOGLOBIN (CO) REFERENCE RANGES: Non-Smokers: <2 % Smokers: <8 % TOXIC: >20 % Methemoglobin- Line Draw 0.3 0.0 - 1.5 % 10/06/2024 7:46 AM EDT [facility] Reduced Hemoglobin-Ludivina e Draw 29.2(H) 0.0 - 5.0 % 10/06/2024 7:46 AM EDT [facility] Venous, Line Draw 10/06/2024 7:37 AM EDT 10/06/2024 7:43 AM EDT us Chari Vanegas MD LAB BLOOD ORDERABLES Final Resul t [facility] [address] [place] [address], [facility] * (ABNORMAL) Venous Blood Gas, Line/Syringe, STAT (10/06/2024 4:03 AM EDT) PH-Line Draw 7.21(L) 7.32 - 7.42 10/06/2024 4:16 AM EDT [facility] PCO2-Line Draw 41 41 - 51 mm Hg 10/06/2024 4:16 AM EDT [facility] PO2-Line Draw 32 25 - 40 mm Hg 10/06/2024 4:16 AM EDT [facility] HCO3-Line Draw 16(L) 24 - 28 mmol/L 10/06/2024 4:16 AM EDT [facility] CO2 Content-Line Draw 18(L) 25 - 29 mmol/L 10/06/2024 4:16 AM EDT [facility] Base Excess-Line Draw -10.8(L) -2.0 - 3.0 mmol/L 10/06/2024 4:16 AM EDT [facility] %HBO2-Line Draw 47.5 40.0 - 70.0 % 10/06/2024 4:16 AM EDT [facility] Carboxyhgb-Ludivina e Draw 2.0 % 10/06/2024 4:16 AM EDT [facility] Comment: CARBOXYHEMOGLOBIN (CO) REFERENCE RANGES: Non-Smokers: <2 % Smokers: <8 % TOXIC: >20 % Methemoglobin- Line Draw 0.7 0.0 - 1.5 % 10/06/2024 4:16 AM EDT [facility] Reduced Hemoglobin-Ludivina e Draw 49.8(H) 0.0 - 5.0 % 10/06/2024 4:16 AM EDT [facility] Venous, Line Draw 10/06/2024 4:03 AM EDT 10/06/2024 4:12 AM EDT us Bisi Hernandez DO LAB BLOOD ORDERABLES Final Resul t [facility] [address] [id number], [facility] * (ABNORMAL) Protime-INR (10/06/2024 4:01 AM EDT) Protime 21.3(H) 12.1 - 15.1 seconds 10/06/2024 4:40 AM EDT [facility] INR 1.8(H) 0.9 - 1.1 10/06/2024 4:40 AM EDT [facility] Comment: RECOMMENDED THERAPEUTIC RANGES USING INR : Stable oral anticoagulant therapy: 2.0 - 3.0 Mechanical prosthetic heart valve: 2.5 - 3.5 Recurrent acute myocardial infarction: 2.5 - 3.5 Plasma 10/06/2024 4:01 AM EDT 10/06/2024 4:11 AM EDT [facility] BLOOD ORDERABLES Final Resul t Performing Organization Address [facility] Co de Phone Number [facility] [address] [facility] * (ABNORMAL) Hepatic Function Panel, AM (10/06/2024 4:01 AM EDT) Total Bilirubin 14.7(H) 0.0 - 1.5 mg/dL 10/06/2024 4:57 AM EDT [facility] Bilirubin, Direct 7.08(H) 0.00 - 0.40 mg/dL 10/06/2024 4:57 AM EDT [facility] AST 60(H) 13 - 39 U/L 10/06/2024 4:57 AM EDT [facility] ALT 31 7 - 52 U/L 10/06/2024 4:57 AM EDT [facility] Alkaline Phosphatase 162(H) 36 - 125 U/L 10/06/2024 4:57 AM EDT [facility] Total Protein 5.3(L) 6.4 - 8.9 g/dL 10/06/2024 4:57 AM EDT [facility] Albumin 3.4(L) 3.5 - 5.7 g/dL 10/06/2024 4:57 AM EDT [facility] Bilirubin, Indirect 7.62(H) 0.00 - 1.10 mg/dL 10/06/2024 4:57 AM EDT [facility] Plasma 10/06/2024 4:01 AM EDT 10/06/2024 4:22 AM EDT [employer] DO LAB BLOOD ORDERABLES Final Resul t [facility] [address] * Magnesium (10/06/2024 4:01 AM EDT) Magnesium 1.8 1.5 - 2.5 mg/dL 10/06/2024 4:57 AM EDT [facility] Plasma 10/06/2024 4:01 AM EDT 10/06/2024 4:22 AM EDT us Bisi Hernandez DO LAB BLOOD ORDERABLES Final Resul t [facility] [address] * (ABNORMAL) Renal Function Panel w/EGFR (10/06/2024 4:01 AM EDT) Sodium 129(L) 133 - 146 mmol/L 10/06/2024 4:57 AM EDT [facility] Potassium 4.7 3.5 - 5.3 mmol/L 10/06/2024 4:57 AM EDT [facility] Chloride 100 98 - 110 mmol/L 10/06/2024 4:57 AM EDT [facility] CO2 16(L) 21 - 33 mmol/L 10/06/2024 4:57 AM EDT [facility] Anion Gap 13 3 - 16 mmol/L 10/06/2024 4:57 AM EDT [facility] BUN 61(H) 7 - 25 mg/dL 10/06/2024 4:57 AM EDT [facility] Creatinine 3.49(H) 0.60 - 1.30 mg/dL 10/06/2024 4:57 AM EDT [facility] Glucose 104(H) 70 - 100 mg/dL 10/06/2024 4:57 AM EDT [facility] Calcium 9.2 8.6 - 10.3 mg/dL 10/06/2024 4:57 AM EDT [facility] Phosphorus 5.3(H) 2.1 - 4.7 mg/dL 10/06/2024 4:57 AM EDT [facility] Albumin 3.4(L) 3.5 - 5.7 g/dL 10/06/2024 4:57 AM EDT [facility] Osmolality, Calculated 286 278 - 305 mOsm/kg 10/06/2024 4:57 AM EDT [facility] EGFR 22 10/06/2024 4:57 AM EDT [facility] Comment:As of 2021, the estimated [...] DO LAB BLOOD ORDERABLES Final Resul t [facility] [address] [place] [address], [facility] * (ABNORMAL) CBC (10/06/2024 4:01 AM EDT) WBC 7.6 3.8 - 10.8 10E3/uL 10/06/2024 5:16 AM EDT [facility] RBC 2.77(L) 4.20 - 5.80 10E6/uL 10/06/2024 5:16 AM EDT [facility] Hemoglobin 10.1(L) 13.2 - 17.1 g/dL 10/06/2024 5:16 AM EDT [facility] Hematocrit 28.4(L) 38.5 - 50.0 % 10/06/2024 5:16 AM EDT [facility] MCV 102.4(H) 80.0 - 100.0 fL 10/06/2024 5:16 AM EDT [facility] MCH 36.4(H) 27.0 - 33.0 pg 10/06/2024 5:16 AM EDT [facility] MCHC 35.5 32.0 - 36.0 g/dL 10/06/2024 5:16 AM EDT [facility] RDW 18.0(H) 11.0 - 15.0 % 10/06/2024 5:16 AM EDT [facility] Platelets 53(L) 140 - 400 10E3/uL 10/06/2024 5:16 AM EDT [facility] Comment:Specimen checked for clots. None detected. MPV 8.4 7.5 - 11.5 fL 10/06/2024 5:16 AM EDT [facility] Whole Blood 10/06/2024 4:01 AM EDT 10/06/2024 4:11 AM EDT [facility] BLOOD ORDERABLES Final Resul t Performing Organization Address City/[facility]/ZIP Co de Phone Number [facility] [address] * Hepatitis C Antibody (10/06/2024 4:01 AM EDT) Pathologist [facility] HCV Ab Nonreactive Nonreactive 10/06/2024 5:12 AM EDT [facility] Comment:Health Department no tified in accordance with reportable infectious disease guidelines. Serum 10/06/2024 4:01 AM EDT 10/06/2024 4:11 AM EDT Narrative [facility] - 10/06/2024 5:12 AM EDT Antibodies to HCV not detected; does not exclude the possibility of exposure to HCV. [facility] BLOOD ORDERABLES Final Resul t Performing Organization Address City/[facility]/ZIP Co de Phone Number [facility] [address] * (ABNORMAL) Hepatitis B Surface Antibody, Quantitati (10/06/2024 4:01 AM EDT) Hep B S Ab Reactive( A) Nonreactive 10/06/2024 5:16 AM EDT [facility] HBSAB NUMBER 11.50(H) 0.00 - 7.99 mIU/mL 10/06/2024 5:16 AM EDT [facility] Serum 10/06/2024 4:01 AM EDT 10/06/2024 4:11 AM EDT [facility] - 10/06/2024 5:16 AM EDT Individual is considered immune to HBV infection. [facility] BLOOD ORDERABLES Final Resul t Performing Organization Address City/[facility]/ZIP Co de Phone Number [facility] [address] [place] [address]. [address] * Hepatitis B surface antigen (10/06/2024 4:01 AM EDT) Hep B Surface Ag Nonreactive Nonreactive 10/06/2024 5:07 AM EDT [facility] Comment:Health Department no tified in accordance with reportable infectious disease guidelines. Serum 10/06/2024 4:01 AM EDT 10/06/2024 4:11 AM EDT [facility] - 10/06/2024 5:07 AM EDT Specimen is considered negative for HBsAg. [facility] BLOOD ORDERABLES Final Resul t Performing Organization Address City/[facility]/ZIP Co de Phone Number [facility] [address] [facility] * Hepatitis A Antibody Total (10/06/2024 4:01 AM EDT) Anti-HAV Total (IgG + IgM) Nonreactive 10/06/2024 5:08 AM EDT [facility] Serum 10/06/2024 4:01 AM EDT 10/06/2024 4:11 AM EDT [facility] - 10/06/2024 5:08 AM EDT HAV antibodies not detected [facility] BLOOD ORDERABLES Final Resul t Performing Organization Address [facility]/ZIP Co de Phone Number [facility] [address] * Hepatitis A IgM (10/06/2024 4:01 AM EDT) Pathologist [facility] Hep A IgM Nonreactive Nonreactive 10/06/2024 5:02 AM EDT [facility] Serum 10/06/2024 4:01 AM EDT 10/06/2024 4:11 AM EDT Narrative [facility] - 10/06/2024 5:02 AM EDT IgM anti-HAV not detected. Does not exclude the possibility of exposure to or infection with HAV. Levels of IgM anti-HAV may be below the cut-off in early infection. [facility] BLOOD ORDERABLES Final Resul t Performing Organization Address [facility] Co de Phone Number [facility] [address] * (ABNORMAL) Salicylate Level (10/06/2024 4:01 AM EDT) Pathologist [facility] [place] Salicylate Lvl <3(L) 10 - 30 mg/dL 10/06/2024 4:58 AM EDT [facility] Serum 10/06/2024 4:01 AM EDT 10/06/2024 4:22 AM EDT [facility] BLOOD ORDERABLES Final Resul t Performing Organization Address City/[facility]/ZIP Co de Phone Number [facility] [address] * AFP Tumor Marker (10/06/2024 4:01 AM EDT) Pathologist [facility] [place] AFP-Tumor Marker 2.6 0.0 - 9.0 ng/mL 10/06/2024 4:55 AM EDT [facility] Serum 10/06/2024 4:01 AM EDT 10/06/2024 4:22 AM EDT Narrative [facility] - 10/06/2024 4:55 AM EDT The testing method for AFP is a chemiluminescent immunoassay manufactured by [employer] Concentrations of AFP obtained by different assay methods or kits may vary and cannot be used interchangeably. AFP results cannot be interpreted as absolute evidence of the presence or absence of malignant disease. us Bisi Hernandez LAB BLOOD ORDERABLES Final Resul t [facility] [address] [facility]. [place] [id number] * Upper Respiratory Viral/Bacterial Panel-PROCED TECH Only (10/06/2024 3:12 AM EDT) Pathologist [facility] [place] Adenovirus Not Detected Not Detected 10/06/2024 11:38 PM EDT [facility] Coronavirus (229E,HKU1,NL63,OC 43) Not Detected Not Detected 10/06/2024 11:38 PM EDT [facility] SARS-CoV-2 Not Detected Not Detected 10/06/2024 11:38 PM EDT [facility] Human Metapneumovirus Not Detected Not Detected 10/06/2024 11:38 PM EDT [facility] Human Rhinovirus/Enterov irus Not Detected Not Detected 10/06/2024 11:38 PM EDT [facility] Influenza A Not Detected Not Detected 10/06/2024 11:38 PM EDT [facility] Influenza A H1 Not Detected Not Detected 10/06/2024 11:38 PM EDT [facility] Influenza A/H1-2009 Not Detected Not Detected 10/06/2024 11:38 PM EDT [facility] Influenza A H3 Not Detected Not Detected 10/06/2024 11:38 PM EDT [facility] Influenza B Not Detected Not Detected 10/06/2024 11:38 PM EDT [facility] Parainfluenza 1 Not Detected Not Detected 10/06/2024 11:38 PM EDT [facility] Parainfluenza 2 Not Detected Not Detected 10/06/2024 11:38 PM EDT [facility] Parainfluenza 3 Not Detected Not Detected 10/06/2024 11:38 PM EDT [facility] Parainfluenza 4 Not Detected Not Detected 10/06/2024 11:38 PM EDT [facility] Resp. Syncycial Virus A Not Detected Not Detected 10/06/2024 11:38 PM EDT [facility] Resp. Syncycial Virus B Not Detected Not Detected 10/06/2024 11:38 PM EDT [facility] Chlamydia pneumoniae Not Detected Not Detected 10/06/2024 11:38 PM EDT [facility] Mycoplasma pneumoniae Not Detected Not Detected 10/06/2024 11:38 PM EDT [facility] Comment: The Respiratory Viral-Bacterial Panel [...] been sent to the [facility] in accordance with state requirements. For a fact sheet for healthcare providers, see https://www.fda.gov/media/412374/download. For a fact sheet for patients, see https://www.fda.gov/media/572940/download. Nasopharyngeal Swab NASOPHARYNGEAL SWAB / Unknown 10/06/2024 3:12 AM EDT 10/06/2024 5:41 PM EDT Comment:PROCED TECH us Bisi Hernandez DO BODY FLUIDS AND STOOLS ORDERABLE S Final Result [facility] [address] [place] [address], [facility] * [...] Cutoff: 10 ng/mL 10/10/2024 3:11 AM EDT [facility] Comment: Phosphatidylethanol (PEth) homologues result [...] Cutoff: 10 ng/mL 10/10/2024 3:11 AM EDT [facility] Comment: PEth 16:0/18:2 (PLPEth) Reference ranges are not well established PEth Interpretation Negative. 10/10 3:11 AM EDT [facility] Comment: ADDITIONAL INFORMATION This report is intended for use in clinical monitoring and management of patients. It is not intended for use in employment-related testing. This test was developed and its performance characteristics determined by [facility] in a manner consistent with CLIA requirements. This test has not been cleared or approved by the U.S. Food and Drug Administration. Test Performed by: [facility] [place] [address] Dictaphone Operator: Kathy Ortiz Ph.D.; CLIA# [id number] Whole Blood 10/06/2024 1:04 AM EDT 10/10/2024 3:11 AM EDT us Bisi Hernandez DO LAB BLOOD ORDERABLES Final Resul t [facility] [address] [place] [address], [facility] * (ABNORMAL) Acetaminophen Level (10/06/2024 1:04 AM EDT) Acetaminophen Level <10(L) 10 - 30 ug/mL 10/06/2024 2:08 AM EDT [facility] Serum 10/06/2024 1:04 AM EDT 10/06/2024 1:30 AM EDT Bisi Hernandez DO LAB BLOOD ORDERABLES Final Resul t [facility] [address] * Ethanol, Serum (10/06/2024 1:04 AM EDT) Ethanol <10 0 - 10 mg/dL 10/06/2024 2:08 AM EDT [facility] Serum 10/06/2024 1:04 AM EDT 10/06/2024 1:30 AM EDT Bisi Hernandez DO LAB BLOOD ORDERABLES Final Resul t Performing Organization Address City/[facility]/ZIP Co de Phone Number [facility] [address] * #2 Blood culture-Peripheral site 2 (10/06/2024 1:04 AM EDT) Culture Result No Growth After 5 Days [facility] Blood BLOOD SPECIMEN / Unknown 10/06/2024 1:04 AM EDT 10/06/2024 4:57 AM EDT Narrative [facility] - 10/11/2024 5:05 AM EDT Suboptimal volume of blood received. Interpret results with caution. Bisi Traxianana maría DOZIER MICROBIOLOGY - GENERAL ORDERABLE S Final Result [facility] [address] [facility]. [address] * #1 Blood culture-Peripheral site 1 (10/06/2024 1:04 AM EDT) Culture Result No Growth After 5 Days [facility] Blood BLOOD SPECIMEN / Unknown 10/06/2024 1:04 AM EDT 10/06/2024 4:57 AM EDT [facility]ative [facility] - 10/11/2024 5:01 AM EDT Suboptimal volume of blood received. Interpret results with caution. Bisi Akana maría DO MICROBIOLOGY - GENERAL ORDERABLE S Final Result Performing Organization Address City/[facility]/ZIP Co de Phone Number [facility] [address] [facility]. [address] * Ammonia (10/06/2024 1:04 AM EDT) Ammonia 77 27 - 90 ug/dL 10/06/2024 2:00 AM EDT [facility] Plasma 10/06/2024 1:04 AM EDT 10/06/2024 1:30 AM EDT [facility] BLOOD ORDERABLES Final Resul t Performing Organization Address [facility] Co de Phone Number [facility] [address] [facility]. [address] * Thyroid Function [place] (10/06/2024 1:04 AM EDT) TSH 0.84 0.45 - 4.12 uIU/mL 10/06/2024 2:20 AM EDT [facility] Serum 10/06/2024 1:04 AM EDT 10/06/2024 1:39 AM EDT [facility] BLOOD ORDERABLES Final Resul t Performing Organization Address [facility]/ZIP Co de Phone Number [facility] [address] [facility]. [address] * (ABNORMAL) Protime-INR (10/06/2024 1:04 AM EDT) Protime 22.8(H) 12.1 - 15.1 seconds 10/06/2024 1:48 AM EDT [facility] INR 1.9(H) 0.9 - 1.1 10/06/2024 1:48 AM EDT [facility] Comment: RECOMMENDED THERAPEUTIC RANGES USING INR : Stable oral anticoagulant therapy: 2.0 - 3.0 Mechanical prosthetic heart valve: 2.5 - 3.5 Recurrent acute myocardial infarction: 2.5 - 3.5 Plasma 10/06/2024 1:04 AM EDT 10/06/2024 1:30 AM EDT us [facility] DO LAB BLOOD ORDERABLES Final Resul t Performing Organization Address City/[facility]/ZIP Co de Phone Number [facility] [address] [facility]. [address] * Lactic Acid, STAT (10/06/2024 1:04 AM EDT) Lactate 1.2 0.5 - 2.2 mmol/L 10/06/2024 1:59 AM EDT [facility] Plasma 10/06/2024 1:04 AM EDT 10/06/2024 1:30 AM EDT us [facility] DO LAB BLOOD ORDERABLES Final Resul t Performing Organization Address [facility] de Phone Number [facility] [address] * (ABNORMAL) CBC, STAT (10/06/2024 1:04 AM EDT) WBC 7.9 3.8 - 10.8 10E3/uL 10/06/2024 2:36 AM EDT [facility] RBC 2.76(L) 4.20 - 5.80 10E6/uL 10/06/2024 2:36 AM EDT [facility] Hemoglobin 9.9(L) 13.2 - 17.1 g/dL 10/06/2024 2:36 AM EDT [facility] Hematocrit 28.0(L) 38.5 - 50.0 % 10/06/2024 2:36 AM EDT [facility] MCV 101.5(H) 80.0 - 100.0 fL 10/06/2024 2:36 AM EDT [facility] MCH 35.7(H) 27.0 - 33.0 pg 10/06/2024 2:36 AM EDT [facility] MCHC 35.2 32.0 - 36.0 g/dL 10/06/2024 2:36 AM EDT [facility] RDW 17.9(H) 11.0 - 15.0 % 10/06/2024 2:36 AM EDT [facility] Platelets 58(L) 140 - 400 10E3/uL 10/06/2024 2:36 AM EDT [facility] Comment: Specimen checked for clots. None detected. Slide Reviewed for PLT Clumps. None Seen. MPV 8.2 7.5 - 11.5 fL 10/06/2024 2:36 AM EDT [facility] Whole Blood 10/06/2024 1:04 AM EDT 10/06/2024 1:31 AM EDT us Bisi Hernandez DO LAB BLOOD ORDERABLES Final Resul t [facility] [address] * (ABNORMAL) Comprehensive Metabolic Panel (10/06/2024 1:04 AM EDT) Sodium 127(L) 133 - 146 mmol/L 10/06/2024 2:05 AM EDT [facility] Potassium 4.5 3.5 - 5.3 mmol/L 10/06/2024 2:05 AM EDT [facility] Chloride 99 98 - 110 mmol/L 10/06/2024 2:05 AM EDT [facility] CO2 18(L) 21 - 33 mmol/L 10/06/2024 2:05 AM EDT [facility] Anion Gap 10 3 - 16 mmol/L 10/06/2024 2:05 AM EDT [facility] BUN 59(H) 7 - 25 mg/dL 10/06/2024 2:05 AM EDT [facility] Creatinine 3.54(H) 0.60 - 1.30 mg/dL 10/06/2024 2:05 AM EDT [facility] Glucose 116(H) 70 - 100 mg/dL 10/06/2024 2:05 AM EDT [facility] Calcium 9.0 8.6 - 10.3 mg/dL 10/06/2024 2:05 AM EDT [facility] Total Bilirubin 14.8(H) 0.0 - 1.5 mg/dL 10/06/2024 2:05 AM EDT [facility] AST 61(H) 13 - 39 U/L 10/06/2024 2:05 AM EDT [facility] ALT 33 7 - 52 U/L 10/06/2024 2:05 AM EDT [facility] Alkaline Phosphatase 174(H) 36 - 125 U/L 10/06/2024 2:05 AM EDT [facility] Total Protein 5.2(L) 6.4 - 8.9 g/dL 10/06/2024 2:05 AM EDT [facility] Albumin 3.3(L) 3.5 - 5.7 g/dL 10/06/2024 2:05 AM EDT [facility] Osmolality, Calculated 282 278 - 305 mOsm/kg 10/06/2024 2:05 AM EDT [facility] EGFR 21 10/06/2024 2:05 AM EDT [facility] Comment:As of 2021, the estimated [...] DO LAB BLOOD ORDERABLES Final Resul t [facility] [address] [place] [id number] documented in this encounter Visit Diagnoses Diagnosis [...] non-communicative (CPOT 3-5), Starting on [facility] 10/07/24 at 1205 oxyCODONE (ROXICODONE) [...] in sodium chloride 0.9 % 250 mL [id number] 1,000 mg, Intravenous, Administer over 60 Minutes, Once, Contact pharmacy if there is a question/concern of whether vancomycin should be given based on serum drug levels. Use [id number] Adapter - Mix Thoroughly Before Administration, Indication? Infection-Suspected, Site of diagnosed infections (select all that apply): Abdominal/Pelvic New Bag 10/08/2024 12:59 PM EDT 1,000 mg 250 mL/hr vancomycin (VANCOCIN) 1,500 mg in sodium chloride 0.9 % 250 mL [id number] 1,500 mg, Intravenous, Administer over 90 Minutes, Once, Contact pharmacy if there is a question/concern of whether vancomycin should be given based on serum drug levels. Use [id number] Adapter - Mix Thoroughly Before Administration, Indication? [...] documented as of this encounter Care Teams Tongue Binder Relationship Specialty Start Date End Date Enedina Mcguire NP [address] [place] [id number] PCP - General Internal Medicine 10/05/24 documented as of this encounter
--- OUTSIDE RECORDS SUMMARY | 2024-10-10 10:36 | XMS_ITS | Encounter Summary ---
Author Organization [facility] Address [facility] [place] [address] Care Team Providers Care Shell Reprint Operator Name Role Phone Enedina Mcguire NP Primary Care Provider [phone] Source Comments This information has been disclosed [...] release of HIV test results or diagnoses. [id number] Health Reason for Visit * Auth/Cert (Routine) Specialty Diagnoses / Procedures Referred By Shane hernadez Referred To Contact General Internal Medicine Diagnoses [facility] [address] [place] [address] Phone: tel: Referral ID Status Reason Start Date Expiration Date Visits Re quested Visits Authorized [id number] 1 1 Encounter Details Date Type Department Care Team (Late st Contact Info) Description 10/10/2024 10:36 AM EDT - 10/10/2024 11:06 AM EDT Surgery [facility] ENDOSCOPY [address] [place] [address] Lino Soto MD [address] [place] [id number] EGD Surgery Details Date/Time Status Location OR Service Patient Class Case Class Case Type Trauma Case? 10/10/2024 10:36 AM Posted ENDOSCOPY E2 Gastroenterology Inpatient EGD/Sm Bowel Panel 1 Procedure LRB Anes Op Region Wound Class Comments EGD N/A MAC (Monitor Ane [facility]) Clean Contaminated Surgeon Surgeon Role Service Panel Lino Soto MD Primary Gastroenterology 1 documented in this encounter Social History Tobacco Use Types Packs/Day Years [...] you homeless or living in a senior living (including now)? No 10/06/2024 Yearly Questionnaire Answer [...] Sign Reading Time Taken Comments Blood Pressure 114/58 10/10/2024 10:30 AM EDT Pulse 94 10/10/2024 10:30 AM EDT Temperature 36.7 C (98.1 F) 10/10/2024 10:30 AM EDT Respiratory Rate 18 10/10/2024 10:30 AM EDT Oxygen Saturation 100% 10/10/2024 10:30 AM EDT Inhaled Oxygen Concentration 100% 10/10/2024 1 0:30 AM EDT Weight 119.5 kg (263 lb 8 oz) 10/10/2024 6:54 AM EDT Height - - Body Mass Index 32.07 10/10/2024 6:54 AM [...] Kandy Fuentes - 10/17/2024 10:29 AM EDT [facility] Care Management Discharge Summary Patient name: [...] Home post discharge: Not Applicable Kandy BAE RN [phone] * William Blount MD - 10/17/2024 8:50 AM EDT [facility] Inpatient Discharge Summary Patient: Julien Gilbert Age: 39 y.o. CSN: [id number] Date of Admission: 10/05/2024 Date of Discharge: [...] Case IDs Date Procedure Surgeon Location Status [id number] 10/10/24 EGD Lino Soto MD ENDOSCOPY Comp [id number] 10/14/24 Left Heart Cath Irving Matta MD [...] at 10/08/2024 1:12 PM EDT US Duplex Rjd-Euv-Knyfooq Comp Final Result IMPRESSION: ABDOMEN 1. Cirrhotic [...] 90 tablet Refills: 0 naloxone 4 mg/actuation [place] Commonly known as: NARCAN Apply 1 spray [...] Your Medications These medications were sent to [facility] [address] [facility] [address] Hours: Sunday - Sunday: 8:00AM - 6:00PM FLUoxetine 20 MG capsule lactulose 10 gram/15 mL solution loratadine 10 mg tablet methocarbamoL 500 MG tablet midodrine 10 MG tablet naloxone 4 mg/actuation [place] oxyCODONE 5 MG immediate release tablet Discharge [...] Select Supplement: Boost-1 kcal/ml supplement ([facility] only) As listed above, low sodium diet [...] PM EDT Hospital Medicine Attending Supervision Note Juline Gilbert was seen on rounds with the [...] AM EDT 10/17/2024 naloxone (NARCAN) 4 mg/actuation [place] Apply 1 spray in one nostril if [...] Hughes MD - 10/17/2024 10:23 AM EDT [facility] HEPATOLOGY PROGRESS NOTE Name: Julien Gilbert CSN: [id number] Consulted by: Chelsy Lerner MD Reason for [...] Yes Past Week naloxone (NARCAN) 4 mg/actuation [place] Apply 1 spray in one nostril if [...] nucleated cells, <2000 RBCs 10% Polynuclear, 90% Kinney nuc. There were initial reports of gram [...] of chemical dependency treatment as outpatient. - [facility] with no obstructive coronary disease - Psych eval for PTSD With recommendation of sertraline - Given his renal dysfunction, will plan to list for [facility] when he qualifies on 10/22/2024. Labs next week - Plan for d/c today Bobby Sidhu MD Transplant Branch Service Representative Please see the body of the resident, [...] remains <30 until October 22. Waiting for [facility] today. ASSESSMENT NADIYA on CKD, last [...] Staff. Jeremiah Gamino PGY4 Nephrology. Pager no. [phone] Chief Complaint No chief complaint on file. [...] Hypertension, Other hyperlipidemia (07/26/2024), Renal cell carcinoma ([facility]), Thrombocytopenia ([facility]), and Thyroid disease. he has a [...] at 10/08/2024 1:12 PM EDT US Duplex Dgl-Uxf-Bagbfzs Comp Final Result IMPRESSION: ABDOMEN 1. Cirrhotic [...] head imaging has been performed at [facility]. -CT Head w/o contrast -Imaging showed [...] Select Supplement: Boost-1 kcal/ml supplement ([facility] only) Code Status: Full Code Signed: WILLIAM BLOUNT MD 10/16/2024, 2:16 PM Cosigned by Chelsy Lerner MD at 10/16/2024 5:38 PM EDT Associated attestation - Chelsy Lerner MD - 10/16/2024 5:38 PM EDT [facility] Medicine Attending Supervision Note Julien [...] another specialty or practice, other licensed professional (PT/OT/CRITICAL CARE TRANSPORT NURSE/RT), or a non-medical community professional: Hepatology, Interventional [...] due to positioning during LHC on 10/14. [place] the worst in CVR, but has improved [...] Kumar, DMITRY - 10/16/2024 1:08 PM EDT [facility] Medical Nutrition Therapy Follow-Up Diet Order/Nutrition Support: Regular diet, Boost TID - Vanilla preference Pertinent Information: This is a 39 year old male history of ETOH cirrhosis d/b HE, ascites with SBP who is admitted for AMS. Precipitant of his HE likely SBP. Diagnostic paracentesis at OSH reportedly showed 61 nucleated cells, <2000 RBCs 10% Polynuclear, 90% Kinney nuc. There were initial reports of gram [...] Based on CBW of 119.5 kg Kcals/day: 9562-0239 (18-21 kcals/kg) Protein g/day: 119-143 (1-1.2 g/kg) [...] Kumar RD, LD Clinical Dietitian Contact via sigmacare * Jerad Hughes MD - 10/16/2024 11:03 AM EDT [facility]PAT[facility]Y PROGRESS NOTE Name: Julien Gilbert CSN: [id number] Consulted by: Chelsy Lerner MD Reason for [...] nucleated cells, <2000 RBCs 10% Polynuclear, 90% Kinney nuc. There were initial reports of gram [...] of chemical dependency treatment as outpatient. - [facility] with no obstructive coronary disease - Psych eval for PTSD With recommendation of sertraline - Given his renal dysfunction, will plan to list for [facility] when he qualifies on 10/22/2024. - Will follow Bobby Sidhu MD Transplant Branch Service Representative Please see the body of the resident, [...] remains <30 until October 22. Waiting for [facility] today. ASSESSMENT NADIYA on CKD, last [...] COMMENT on 10/08/2024 Iron%- Iron replete PLAN -[facility] yesterday- patient remains at risk of contrast related injury on top of exisiting NADIYA for 24-48 hrs after contrast load. -He is volume overloaded -patient needs to follow up closely with nephrology after discharge Thank you for allowing us to participate in this patient's care. Discussed with Consult Staff. Jeremiah Gamino PGY4 Nephrology. Pager no. [phone] Chief Complaint No chief complaint on file. [...] at 10/08/2024 1:12 PM EDT US Duplex Cpv-Tzq-Zqqrxoe Comp Final Result IMPRESSION: ABDOMEN 1. Cirrhotic [...] not tolerate Stress ECHO on 10/09 - [facility] today -Per GI recs, started on [...] head imaging has been performed at [facility]. -CT Head w/o contrast -Imaging showed [...] Select Supplement: Boost-1 kcal/ml supplement ([facility] only) Code Status: Full Code Signed: WILLIAM BLOUNT MD 10/15/2024, 10:49 AM Cosigned by Chelsy Lerner MD at 10/15/2024 2:47 PM EDT Associated attestation - Chelsy Lerner MD - 10/15/2024 2:47 PM EDT [facility] Medicine Attending Supervision Note Julien Gilbert was seen today on rounds with the resident physician. I personally interviewed and examined the patient. I reviewed the documentation by the resident and agree as documented unless otherwise stated below. Reason for today's visit: Acute kidney injury superimposed on CKD ([facility]) Supplemental History / ROS R sided flank [...] another specialty or practice, other licensed professional (PT/OT/CRITICAL CARE TRANSPORT NURSE/RT), or a non-medical community professional: Hepatology, Interventional [...] due to positioning during LHC on 10/14. [place] the worst in CVR, but has improved [...] Hughes MD - 10/15/2024 10:15 AM EDT [facility] PROGRESS NOTE Name: Julien Gilbert CSN: [id number] Consulted by: Chelsy Lerner MD Reason for [...] nucleated cells, <2000 RBCs 10% Polynuclear, 90% Kinney nuc. There were initial reports of gram [...] of chemical dependency treatment as outpatient. - [facility] yesterday with no obstructive coronary disease - Psych eval for PTSD and medical management - Given his renal dysfunction, will plan to list for [facility] when he qualifies on 10/22/2024. - Will follow Bobby Sidhu MD Transplant Branch Service Representative Please see the body of the resident, [...] Quan MD - 10/14/2024 2:34 PM EDT [facility] Department of Cardiovascular Health and [...] remains <30 until October 22. Waiting for [facility] today. ASSESSMENT NADIYA on CKD, last discharge creatinine 2.4 Baseline Creatinine 1.2-1.3, HRS- NADIYA as no response to holding lasix and albumin UA bland Urine lytes <10/< 15/ 50 Holding lasix give [facility] today Renal Function: Recent Labs 10/14/24 [...] Staff. Jeremiah Gamino PGY4 Nephrology. Pager no. [phone] Chief Complaint No chief complaint on file. [...] shortness of breath. Pt is scheduled for C today. Patient is alert and oriented x4. [...] at 10/08/2024 1:12 PM EDT US Duplex Xww-Fzn-Olcxgth Comp Final Result IMPRESSION: ABDOMEN 1. Cirrhotic [...] not tolerate Stress ECHO on 10/09 - [facility] today -Per GI recs, started on [...] head imaging has been performed at [facility]. -CT Head w/o contrast -Imaging showed [...] never required dialysis. Patient is going for [facility] today and will receive contrast, okay [...] Select Supplement: Boost-1 kcal/ml supplement ([facility] only) Code Status: Full Code Signed: WILLIAM [...] another specialty or practice, other licensed professional (PT/OT/CRITICAL CARE TRANSPORT NURSE/RT), or a non-medical community professional: Hepatology, Interventional [...] Hughes MD - 10/14/2024 7:42 AM EDT [facility] PROGRESS NOTE Name: Julien Gilbert CSN: [id number] Consulted by: Chelsy Lerner MD Reason for [...] nucleated cells, <2000 RBCs 10% Polynuclear, 90% Kinney nuc. There were initial reports of gram [...] eval ongoing. Transplant work up ongoing - [facility] today - Transplant nephrology following for [...] - Will follow Bobby Sidhu MD Transplant Branch Service Representative Please see the body of the resident, [...] Staff. Jeremiah Gamino PGY4 Nephrology. Pager no. [phone] Chief Complaint No chief complaint on file. [...] Hughes MD - 10/13/2024 12:33 PM EDT [facility] PROGRESS NOTE Name: Julien Gilbert CSN: [id number] Consulted by: Fouzia Rene MD Reason for Consult: Decompensated Cirrhosis History of Present Illness: Julien Gilbetr is a 39 y.o. with history of decompensated EtOH cirrhosis (complicated by EV, HRS, ascites, HE), HTN, and CKD who was transferred from OSH for altered mental status Interval History -Patient [...] nucleated cells, <2000 RBCs 10% Polynuclear, 90% Kinney nuc. There were initial reports of gram [...] eval ongoing. Transplant work up ongoing - [facility] today - Transplant nephrology following for [...] - Will follow Bobby Sidhu MD Transplant Branch Service Representative Please see the body of the resident, [...] reviewed independently any interval liver pathology. * SAMANTHA Shields - 10/13/2024 12:30 PM EDT Start Time: [...] no psychomotor abnormalities Cognition: short term and longterm memory intact Attitude: cooperative Affect: full range [...] his home to continue counseling. * Citlaly Homagdalena, RD - 10/13/2024 10:49 AM EDT [facility] Medical Nutrition Therapy Reason(s) for [...] Select Supplement: Boost-1 kcal/ml supplement ([facility] only) Pertinent Information: Julien Gilbert is a 39 y.o. Male admitted for Acute kidney injury superimposedon CKD ([facility]) Pt noted to have waxing and [...] Weight: please obtain Pertinent Labs: Recent Labs 10/11/24 0302 10/12/24 0544 10/13/24 0535 WBC 4.0 3.3* 4.7 HGB 7.7* 7.2* 7.4* HCT 21.2* 19.7* 21.7* PLT 32* 30* 35* Recent Labs 10/11/24 0302 10/12/24 0544 10/13/24 0535 NA 134 135 134 K 3.6 3.7 3.7 CL 108 109 109 CO2 16* 17* 14* BUN 49* 52* 54* CREATININE 2.77* 2.94* 2.99* GLUCOSE 112* 121* 116* CALCIUM 8.9 8.5* 8.3* MG 2.0 1.9 2.0 PHOS 3.5 4.6 4.5 Recent Labs 10/11/24 0302 10/12/24 0544 10/13/24 0535 AST 39 40* 42* ALT 20 19 19 BILITOT 7.3* 6.5* 6.5* BILIDIRECT 3.85* 3.64* 3.53* ALKPHOS 88 99 108 ALBUMIN 3.3* 3.3* 3.1* 3.1* 3.1* 3.1* Recent Labs 10/11/24 0302 10/12/24 0544 10/13/24 0535 INR 2.4* 2.3* 2.1* [...] kg) Body mass index is 32.07 kg/m??. [place] Body Weight: 202 lbs (91.8 kg) +/- 10% Weight History: Wt Readings from Last 10 Encounters: 10/10/24 (!) 263 lb 8 oz (119.5 kg) 09/05/24 (!) 262 lb 9.6 oz (119.1 kg) 09/02/24 (!) 258 lb (117 kg) 08/17/24 (!) 242 lb 11.2 oz (110.1 kg) 07/28/24 (!) 245 lb (111.1 kg) Estimated Nutrition Needs: Based on CBW of 119.5 kg Kcals/day: 8584-7153 (18-21 kcals/kg) Protein g/day: 119-143 (1-1-2 g/kg) [...] Dietitian - Solid Organ Transplant Contact via Yast Chat * Eileen Schroeder MD, PhD - 10/13/2024 8:19 AM EDT Department of Internal Medicine Daily Progress Note Chief Complaint / Reason for Follow-Up Julien Gilbert is a 39 y.o. male on hospital day 8. The principal reason for today's follow up visit is Acute kidney injury superimposed on CKD ([facility]). NAEON Pt felt well this AM. A&O [...] at 10/08/2024 1:12 PM EDT US Duplex Ajt-Cvm-Uappkar Comp Final Result IMPRESSION: ABDOMEN 1. Cirrhotic [...] head imaging has been performed at [facility]. -CT Head w/o contrast -Imaging showed [...] Select Supplement: Boost-1 kcal/ml supplement ([facility] only) Code Status: Full Code Signed: EILEEN [...] I reviewed the documentation by the medical service team leader and agree as documented. Any [...] was non-diagnostic due to hypotension. Plan for [facility] today, but now moved to tomorrow. [...] when medically ready. Consider d/c home after [facility] tomorrow. FOUZIA RENE MD Attending Physician Department of Internal Medicine 10/13/2024 Medical Decision Making: // LEVEL 2 MOD One chronic illness with exacerbation, progression, or side effects of treatment Discussed with physician/SAWYER from another specialty or practice, other licensed professional (PT/OT/CRITICAL CARE TRANSPORT NURSE/RT), or a non-medical community professional: Nephrology, Hepatology [...] at 10/08/2024 1:12 PM EDT US Duplex Cip-Iho-Koaizhw Comp Final Result IMPRESSION: ABDOMEN 1. Cirrhotic [...] head imaging has been performed at [facility]. -CT Head w/o contrast -Imaging showed [...] Select Supplement: Boost-1 kcal/ml supplement ([facility] only) Code Status: Full Code Signed: CHARI [...] I reviewed the documentation by the medical service team leader and agree as documented. Any additions or clarifications are listed below. Daily plan was discussed with patient at bedside and questions addressed. Patient ID: Julien Gilbert is a 39 y.o. male currently admitted for Acute kidney injury superimposed on CKD ([facility]) Supplemental History/ ROS: No acute events [...] for Acute kidney injury superimposed on CKD ([facility]) Active Problems: NADIYA (acute kidney injury) on CKD ([facility]): Hepatorenal syndrome. Appreciate nephrology consult. S/p albumin X3. baseline creatinine presumed to be around 2.5. Creatinine improved from its peak and may be now fluctuating around a new baseline. We will continue to monitor. Spontaneous Bacterial Peritonitis ([facility]): He remains afebrile and vital signs have been stable. Received 4 days of vancomycin, Ceftriaxone x 5d. - Restart Cipro prophylaxis Anemia: Multiple contributors. S/p 1 unit PRBC. Hemoglobin responded appropriately and remained stable. Will continue to monitor. Metabolic encephalopathy: Resolved. Likely related to combination of hepatic, metabolic, and possibly infectious insults. - Continue home lactulose and rifaximin Decompensated cirrhosis ([facility]): Appreciate hepatology consult. He has started his [...] another specialty or practice, other licensed professional (PT/OT/CRITICAL CARE TRANSPORT NURSE/RT), or a non-medical community professional: Nephrology, Hepatology [...] tid. cardiac workup pre txp. pLan for [facility] Sunday Liver transplant workup per GI/ [...] Laboratory Data and Imaging Recent Labs 10/10/24 0523 10/11/24 0302 10/12/24 0544 WBC 5.1 4.0 3.3* [...] 3.3* 3.3* 3.3* 3.1* 3.1* Recent Labs 10/10/2452210/11/24 0302 10/12/24 0544 CALCIUM 9.0 8.9 8.5* PHOS 3.3 3.5 4.6 Lab Results Component Value Date IRON 81 10/08/2024 TIBC SEE COMMENT 10/08/2024 FERRITIN 706.9 (H) 10/08/2024 No results found for: [id number] , FOLATE Lab Results Component Value Date [...] CRUR No results found for: MICROALBUR , [id number] In addition to the above an extensive [...] 4.6 10/12/2024 Lab Results Component Value Date ZZVC07O 7.1 (L) 10/08/2024 PLAN Monitor renal panel [...] 5:44 AM Colten Huertas MD, KISHOR LIN, FNKF lithography contact worker Div. of Nephrology [facility] E-mail: [email or web address] This note was completely [...] Rene MD Interval hx No issues. Pending [facility]. Assessment: Renal Function: Cr: 2.77 Bun: [...] tid. cardiac workup pre txp. pLan for [facility] Sunday 4. Liver transplant workup per GI/ [...] % Wt Readings from Last 3 Encounters: 05/30/25 (!) 263 lb 8 oz (119.5 kg) [...] and Imaging Recent Labs 10/09/24 0459 10/10/24 0510/11/24 0302 WBC 4.6 5.1 4.0 HGB 8.0* 7.3* 7.7* HCT 21.8* 20.6* 21.2* MCV 100.5* 101.2* 100.5* PLT 36* 39* 32* Recent Labs 10/09/24 0459 10/09/24 0814 10/09/24 1305 10/10/24 0510/11/24 0302 NA 134 < > 134 135 [...] not displayed. Recent Labs 10/09/24 1305 10/10/24 0510/11/24 0302 CALCIUM 9.3 9.0 8.9 PHOS 3.4 3.3 3.5 Lab Results Component Value Date IRON 81 10/08/2024 TIBC SEE COMMENT 10/08/2024 FERRITIN 706.9 (H) 10/08/2024 No results found for: [id number] , FOLATE Lab Results Component Value Date [...] CRUR No results found for: MICROALBUR , [id number] In addition to the above an extensive [...] 3.5 10/11/2024 Lab Results Component Value Date IUIX40B 7.1 (L) 10/08/2024 PLAN Monitor renal panel [...] 10/11/2024 3:02 AM Colten Huertas MD, KISHOR LIN FNKF lithography contact worker Div. of Nephrology [facility] E-mail: [email or web address] This note was completely [...] is Acute kidney injury superimposed on CKD ([facility]). NAEON Pt felt much better today. [...] at 10/08/2024 1:12 PM EDT US Duplex Wep-Upg-Wtvbnil Comp Final Result IMPRESSION: ABDOMEN 1. Cirrhotic [...] Pt has recorded HgB of 6.9 on 5/28. Likely dilutional due to albumin treatment. Plan [...] from outside facility. Will engage with them daily([phone]. Ask to speak to a tech) about [...] head imaging has been performed at [facility]. -CT Head w/o contrast -Imaging showed [...] Select Supplement: Boost-1 kcal/ml supplement ([facility] only) Code Status: Full Code Signed: CHARI [...] I reviewed the documentation by the medical service team leader and agree as documented. Any [...] remains afebrile and vital signs have been stable.Received 4 days of vancomycin. - Completes ceftriaxone [...] was non-diagnostic due to hypotension. Plan for C on Sunday (6/2) - EGD completed. Has esophageal varices and [...] another specialty or practice, other licensed professional (PT/OT/CRITICAL CARE TRANSPORT NURSE/RT), or a non-medical community professional: Nephrology, Hepatology, [...] Strictly monitor urine output No Indication for CURRICULUM CONSULTANT 3. Not a candidate for terlipressin per [...] Ignacio Queen MD Renal Fellow Pager # [phone] Chief Complaint No chief complaint on file. [...] PHOS -- < > 3.5 3.4 3.3 CWSL87U 7.1* -- -- -- -- < > = values in this interval not displayed. Lab Results Component Value Date IRON 81 10/08/2024 TIBC SEE COMMENT 10/08/2024 FERRITIN 706.9 (H) 10/08/2024 No results found for: [id number] , FOLATE Lab Results Component Value Date COLORU Yellow 10/06/2024 CLARITYU Clear 10/06/2024 PROTEINUA Negative 10/06/2024 PHUR 6.0 10/06/2024 LABSPEC 1.014 10/06/2024 GLUCOSEU Negative 10/06/2024 BLOODU Negative 10/06/2024 LEUKOCYTESUR Negative 10/06/2024 NITRITE Negative 10/06/2024 BILIRUBINUR Negative 10/06/2024 UROBILINOGEN <2.0 10/06/2024 RBCUA 1 09/03/2024 WBCUA 1 09/03/2024 BACTERIA Occasional (A) 09/03/2024 No results for input(s): NAUR , ISAAC , CLPEDRO in the last 72 hours. Invalid input(s): CO2UR , CRUR No results found for: MICROALBUR , [id number] In addition to the above an extensive [...] 3.3 10/10/2024 Lab Results Component Value Date GNIU99E 7.1 (L) 10/08/2024 PLAN Continue IV albumin [...] at 10/10/2024 5:23 AM Colten Huertas MD, DELIA, KISHOR, FNKF lithography contact worker Div. of Nephrology [facility] E-mail: [email or web address] This note was completely [...] follow pt while pt is at [facility]. * Jodi Ortiz PharmD - 10/10/2024 10:27 AM EDT Clinical Pharmacy Service: Vancomycin Consult Progress Note Patient has been transitioned off of vancomycin therapy per team notes and orders. Pharmacy will sign-off at this time, please do not hesitate to consult again as needs arise. Thank you for involving pharmacy in the care of this patient. Jodi Ortiz PharmD Clinical Narrow Gauge Brakeman, Internal Medicine Preferred contact: [employer] Secure Chat Clinical Betwncd-Ke-Ecji Pager: [phone] October 10, 2024 10:27 AM Laboratory Data [...] 10/07/2024 10:50 PM Giardia Cryptosporidium Antigens Final [id number] 10/07/2024 10:50 PM Ova and Parasite Comprehensive w/ Giardia/Crypto Final [id number] Feces 10/06/2024 1:04 AM #2 Blood culture-Peripheral site 2 Preliminary [id number] Peripheral 10/06/2024 1:04 AM #1 Blood culture-Peripheral site 1 Preliminary [id number] Peripheral Pharmacokinetics Lab Results (Last 7 days) Today 522 Yesterday 10/08 0536 Vanc Rdm 16.4 11.0 16.0 * Gerri Peterson MD - 10/10/2024 10:09 AM EDT [facility] PROGRESS NOTE Name: Julien Gilbert CSN: [id number] Consulted by: Fouzia Rene MD Reason for [...] nucleated cells, <2000 RBCs 10% Polynuclear, 90% Kinney nuc. Per OSH reports, ascitic fluid cultures [...] to achieving target HR. -cardiology consult for [facility] on Sunday - Transplant nephrology following [...] from the original note were not included. [facility] Clinical Pharmacy Service: Vancomycin Monitoring [...] in sodium chloride 0.9 % 250 mL Vveu7Fcc (Completed) 1,500 mg Once 10/09/2024 10/09/2024 Admin Instructions: Contact pharmacy if there is a question/concern of whether vancomycin should begiven based on serum drug levels. Use Qerx8Yvl Adapter - Mix Thoroughly Before Administration Route: Intravenous vancomycin (VANCOCIN) 1,500 mg in sodium chloride 0.9 % 250 mL Gico0Lvs 1,500 mg Once 10/10/2024 10/11/2024 Admin Instructions: Contact pharmacy if there is a question/concern of whether vancomycin should begiven based on serum drug levels. Use Vxrz2Vng Adapter - Mix Thoroughly Before Administration Route: [...] in sodium chloride 0.9 % 250 mL Vntk9Gax 1,500 mg 166.7 mL/hr 10/08/24 1259 New Bag vancomycin (VANCOCIN) 1,000 mg in sodium chloride 0.9 % 250 mL Egir9Fmo 1,000 mg 250 mL/hr --Objective Data-- Vitals: [...] 53 53 54 Creatinine 2.85 2.89 3.04 [place] body weight: 86.8 kg (191 lb 5.7 oz) Adjusted ideal body weight: 99.9 kg (220 lb 3.5 oz) Estimated CrCl: ~35-45 mL/min --Cultures-- Microbiology Results Date and Time Order Name Sensitivity Status Organisms Specimen ID Source 10/07/2024 10:50 PM Giardia Cryptosporidium Antigens Final [id number] 10/07/2024 10:50 PM Ova and Parasite Comprehensive w/ Giardia/Crypto Final [id number] Feces 10/06/2024 1:04 AM #2 Blood culture-Peripheral site 2 Preliminary [id number] Peripheral 10/06/2024 1:04 AM #1 Blood culture-Peripheral site 1 Preliminary [id number] Peripheral --Vancomycin Concentrations-- Lab Results (Last 7 days) Today 0523 [...] for the consult. Jodi Ortiz PharmD Clinical Narrow Gauge Brakeman, Internal Medicine Preferred contact: [employer] Clinical Zkhikcm-Ja-Zizm Pager: [phone] October 10, 2024 9:13 AM * Eileen Schroeder MD, PhD - 10/10/2024 8:17 AM EDT Department of Internal Medicine Daily Progress Note Chief Complaint / Reason for Follow-Up Julien Gilbert is a 39 y.o. male on hospital day 5. The principal reason for today's follow up visit is Acute kidney injury superimposed on CKD ([facility]). DREW Pt was very conversational today. [...] at 10/08/2024 1:12 PM EDT US Duplex Zoj-Mei-Vdgldvk Comp Final Result IMPRESSION: ABDOMEN 1. Cirrhotic [...] from outside facility. Will engage with them daily([phone]. Ask to speak to a tech) about [...] head imaging has been performed at [facility]. -CT Head w/o contrast -Imaging showed [...] Select Supplement: Boost-1 kcal/ml supplement ([facility] only) Code Status: Full Code Signed: EILEEN [...] I reviewed the documentation by the medical service team leader and agree as documented. Any additions or clarifications are listed below. Daily plan was discussed with patient at bedside and questions addressed. Patient ID: Julien Gilbert is a 39 y.o. male currently admitted for Acute kidney injury superimposed on CKD ([facility]) Supplemental History/ ROS: No acute events [...] for Acute kidney injury superimposed on CKD ([facility]) Active Problems: Spontaneous Bacterial Peritonitis ([facility]): Cultures from OSH were reported as growing [...] Continue home lactulose and rifaximin Decompensated [facility] Appreciate hepatology consult. He has started his [...] IR. NADIYA (acute kidney injury) on CKD ([facility]): Appreciate nephrology consult. Likely due to hepatorenal [...] another specialty or practice, other licensed professional (PT/OT/CRITICAL CARE TRANSPORT NURSE/RT), or a non-medical community professional: Nephrology, Hepatology, [...] Strictly monitor urine output No Indication for CURRICULUM CONSULTANT Not a candidate for terlipressin per liver due to HE, liver and kidney failure, on midodrine tid. Considering para today, cardiac workup pre txp Liver transplant workup per GI/ Primary team, considering for SLK, seen by renal transplant team Thank you for allowing us to participate in this patient's care. Discussed with Consult Staff. Ignacio Queen MD Renal Fellow Pager # [phone] Chief Complaint No chief complaint on file. [...] 9.0 9.3 PHOS -- 3.5 3.5 3.4 UQWH69G 7.1* -- -- -- Lab Results Component Value Date IRON 81 10/08/2024 TIBC SEE COMMENT 10/08/2024 FERRITIN 706.9 (H) 10/08/2024 No results found for: UQNGDKFR83 , FOLATE Lab Results Component Value Date [...] CRUR No results found for: MICROALBUR , HFKO25FEC In addition to the above an extensive [...] 3.4 10/09/2024 Lab Results Component Value Date CGKY61L 7.1 (L) 10/08/2024 PLAN Continue IV albumin [...] 1:05 PM Colten Huertas MD, KISHOR LIN, FNKF lithography contact worker Div. of Nephrology [facility] E-mail: [email or web address] This note was completely [...] Peterson MD - 10/09/2024 1:07 PM EDT [facility] PROGRESS NOTE Name: Julien Gilbert CSN: [id number] Consulted by: Fouzia Rene MD Reason for [...] nucleated cells, <2000 RBCs 10% Polynuclear, 90% Kinney nuc. Fluid cultures reportedly grew gram + [...] from the original note were not included. [facility] Clinical Pharmacy Service: Vancomycin Monitoring [...] in sodium chloride 0.9 % 250 mL Oevv9Wje (Completed) 1,000 mg Once 10/08/2024 10/08/2024 Admin Instructions: Contact pharmacy if there is a question/concern of whether vancomycin should begiven based on serum drug levels. Use Ohcq0Zge Adapter - Mix Thoroughly Before Administration Route: Intravenous vancomycin (VANCOCIN) 1,500 mg in sodium chloride 0.9 % 250 mL Blbf8Gqa 1,500 mg Once 10/09/2024 10/10/2024 Admin Instructions: Contact pharmacy if there is a question/concern of whether vancomycin should begiven based on serum drug levels. Use Xasn9Udo Adapter - Mix Thoroughly Before Administration Route: [...] in sodium chloride 0.9 % 250 mL Axqo2Maq 1,000 mg 250 mL/hr 10/06/24 1413 New [...] 10/07/2024 10:50 PM Giardia Cryptosporidium Antigens Final [id number] 10/07/2024 10:50 PM Ova and Parasite Comprehensive w/ Giardia/Crypto Final [id number] Feces 10/06/2024 1:04 AM #2 Blood culture-Peripheral site 2 Preliminary [id number] Peripheral 10/06/2024 1:04 AM #1 Blood culture-Peripheral site 1 Preliminary [id number] Peripheral --Vancomycin Concentrations-- Lab Results (Last 7 [...] for the consult. Jodi Ortiz PharmD Clinical Narrow Gauge Brakeman, Internal Medicine Preferred contact: [employer] Clinical Rfnkjrh-Sr-Iwwu Pager: [phone] October 09, 2024 8:29 AM * Eileen Schroeder MD, PhD - 10/09/2024 8:00 AM EDT Department of Internal Medicine Daily Progress Note Chief Complaint / Reason for Follow-Up Julien Gilbert is a 39 y.o. male on hospital day 4. The principal reason for today's follow up visit is Acute kidney injury superimposed on CKD ([facility]). DREW and father at bedside Pt fully conversational [...] at 10/08/2024 1:12 PM EDT US Duplex Abi-Koe-Aseqelv Comp Final Result IMPRESSION: ABDOMEN 1. Cirrhotic [...] from outside facility. Will engage with them daily([phone]. Ask to speak to a tech) about [...] head imaging has been performed at [facility]. -CT Head w/o contrast -Imaging showed [...] Select Supplement: Boost-1 kcal/ml supplement ([facility] only) Code Status: Full Code Signed: EILEEN [...] I reviewed the documentation by the medical service team leader and agree as documented. Any additions or clarifications are listed below. Daily plan was discussed with patient at bedside and questions addressed. Patient ID: Julien Gilbert is a 39 y.o. male currently admitted for Acute kidney injury superimposed on CKD ([facility]) Supplemental History/ ROS: No acute events [...] for Acute kidney injury superimposed on CKD ([facility]) Active Problems: Anemia: S/p 1 unit PRBC from yesterday. Hemoglobin responded appropriately and remained stable. Will continue to monitor. Metabolic encephalopathy: Mostly resolved. Likely related to combination of hepatic, metabolic, andpossibly infectious insults. - Continue home lactulose and rifaximin Spontaneous Bacterial Peritonitis ([facility]): Cultures from OSH are growing gram- positive organisms.We continue to await speciation. He remains afebrile and vital signs have been stable. - Continue vancomycin and ceftriaxone for now. - Will follow-up on speciation and sensitivities. Decompensated cirrhosis ([facility]): Appreciate hepatology consult. He has started his transplant evaluation and will continue while inpatient. - MELD labs daily - Continue home regimen with ursodiol, rifaximin and lactulose - Start midodrine 3 times daily - EGD postponed until tomorrow -Planning for stress test today - Due for therapeutic paracentesis in the next day or so. NADIYA (acute kidney injury) on CKD ([facility]): Appreciate nephrology consult. Likely due to hepatorenal syndrome. Now s/p albumin X3. baseline creatinine presumed to be around 2.5. Creatinine slightly lower today. We will continue to monitor. Electrolyte derangements: Replete as needed Neck Pain: He has a history of cervical surgery. Continue oxycodone as needed for pain. Continue tomonitor. Principal Problem: Acute kidney injury superimposed on CKD ([facility]) Active Problems: Decompensated cirrhosis ([facility]) Metabolic encephalopathy Thrombocytopenia ([facility]) Renal mass, left Metabolic acidosis with normal anion gap and bicarbonate losses GERD (gastroesophageal reflux disease) Anemia SBP (spontaneous bacterial peritonitis) ([facility]) Neck pain with history of cervical spinal [...] another specialty or practice, other licensed professional (PT/OT/CRITICAL CARE TRANSPORT NURSE/RT), or a non-medical community professional: Nephrology, Hepatology Labs reviewed (1 pt each): CBC, CMP, INR & other daily labs Review of notes from a different specialty or different practice: Nephrology, Anesthesiology hepatology, * Gerri Peterson MD - 10/08/2024 1:40 PM EDT [facility] PROGRESS NOTE Name: Julien Gilbert CSN: [id number] Consulted by: Fouzia Rene MD Reason for Consult: Decompensated Cirrhosis History of Present Illness: Julien Gilbert is a 39 y.o. with history of decompensated EtOH cirrhosis (complicated by EV, HRS, ascites, HE), HTN, and CKD who was transferred from [facility] for altered mental status Interval History -no [...] nucleated cells, <2000 RBCs 10% Polynuclear, 90% Kinney nuc. Fluid cultures reportedly grew gram + [...] disease (ESRD) patient in a hospital based, [facility], or home setting. -At the time [...] I have discussed this plan with the tutor coordinator and the liver transplant team. Cosigned [...] from the original note were not included. [facility] Clinical Pharmacy Service: Vancomycin Monitoring [...] in sodium chloride 0.9 % 250 mL Mkrg5Lrp 1,000 mg Once 10/08/2024 10/09/2024 Admin Instructions: Contact pharmacy if there is a question/concern of whether vancomycin should begiven based on serum drug levels. Use Ezmy2Sbu Adapter - Mix Thoroughly Before Administration Route: [...] Pulse: 100 99 100 98 Resp: 16 Temp: 97.6 ??F (36.4 ??C) [...] 10/07/2024 10:50 PM Giardia Cryptosporidium Antigens Final [id number] 10/07/2024 10:50 PM Ova and Parasite Comprehensive w/ Giardia/Crypto In process [id number] Feces 10/06/2024 1:04 AM #2 Blood culture-Peripheral site 2 Preliminary [id number] Peripheral 10/06/2024 1:04 AM #1 Blood culture-Peripheral site 1 Preliminary [id number] Peripheral --Vancomycin Concentrations-- Lab Results (Last 7 [...] for the consult. Jodi Ortiz, PharmD Clinical Narrow Gauge Brakeman, Internal Medicine Preferred contact: [employer] Clinical Nmvdckw-Rx-Kibt Pager: [phone] October 08, 2024 9:13 AM * Eileen [...] FREET4 0.74 09/03/2024 Diagnostic Studies US Duplex Szj-Sdw-Omqregc Comp Final Result IMPRESSION: ABDOMEN 1. Cirrhotic [...] head imaging has been performed at [facility]. -CT Head w/o contrast -Imaging showed [...] Select Supplement: Boost-1 kcal/ml supplement ([facility] only) Code Status: Full Code Signed: EILEEN [...] I reviewed the documentation by the medical service team leader and agree as documented. Any [...] tomorrow NADIYA (acute kidney injury) on CKD ([facility]): Appreciate nephrology consult. Likely has hepatorenal [...] Problem: Metabolic encephalopathy Active Problems: Decompensated cirrhosis ([facility]) Acute kidney injury superimposed on CKD ([facility]) Thrombocytopenia ([facility]) Renal mass, left Metabolic acidosis with normal anion gap and bicarbonate losses GERD (gastroesophageal reflux disease) Anemia SBP (spontaneous bacterial peritonitis) ([facility]) Neck pain with history of cervical spinal [...] another specialty or practice, other licensed professional (PT/OT/CRITICAL CARE TRANSPORT NURSE/RT), or a non-medical community professional: Nephrology, Hepatology [...] Strictly monitor urine output No Indication for CURRICULUM CONSULTANT Not a candidate for terlipressin per liver due to HE, liver ans kidney failure, on midodrine tid Liver transplant workup per GI/ Primary team, considering for SLK Thank you for allowing us to participate in this patient's care. Discussed with Consult Staff. Ignacio Queen MD Renal Fellow Pager # [phone] Chief Complaint No chief complaint on file. [...] 10/06/24 0401 10/06/24 0737 10/07/24 0610/08/24 0536 CALCIUM 9.2 9.5 9.1 9.0 PHOS 5.3* -- 4.2 4.0 No results found for: IRON , TIBC , FERRITIN No results found for: [id number] , FOLATE Lab Results Component Value Date [...] <15 No results found for: MICROALBUR , [id number] In addition to the above an extensive [...] 4.0 10/08/2024 Lab Results Component Value Date EKAY33Z 7.1 (L) 10/08/2024 PLAN Continue IV albumin [...] 5:36 AM Colten Huertas MD, KISHOR LIN, FNKF lithography contact worker Div. of Nephrology [facility] E-mail: [email or web address] This note was completely [...] from the original note were not included. [facility] Clinical Pharmacy Service: Vancomycin Monitoring [...] AM #2 Blood culture-Peripheral site 2 Preliminary [id number] Peripheral 10/06/2024 1:04 AM #1 Blood culture-Peripheral site 1 Preliminary [id number] Peripheral --Vancomycin Concentrations-- Lab Results (Last 7 [...] for the consult. Jodi Ortiz PharmD Clinical Narrow Gauge Brakeman, Internal Medicine Preferred contact: [employer] Clinical Xfczqim-Io-Tupn Pager: [phone] October 07, 2024 5:01 PM * Yamile [...] Peterson MD - 10/07/2024 11:33 AM EDT [facility] PROGRESS NOTE Name: Julien Gilbert CSN: [id number] Consulted by: Fouzia Rene MD Reason for [...] hyperlipidemia 07/26/2024 Renal cell carcinoma ([facility]HCC) Thrombocytopenia ([facility]) Thyroid disease No past surgical history on [...] nucleated cells, <2000 RBCs 10% Polynuclear, 90% Kinney nuc. Fluid cultures reportedly grewgram + rods. [...] liver selection meeting and clearance by social professionals. Please order CT cardiac coronary evaluation, transplant [...] Strictly monitor urine output No Indication for CURRICULUM CONSULTANT Liver transplant workup per GI/ Primary team Thank you for allowing us to participate in this patient's care. Discussed with Consult Staff. Ignacio Queen MD Renal Fellow Pager # [phone] Chief Complaint No chief complaint on file. [...] TIBC , FERRITIN No results found for: JMLEDHFP19 , FOLATE Lab Results Component Value Date [...] <15 No results found for: MICROALBUR , [id number] In addition to the above an extensive [...] PHOS 4.2 10/07/2024 No results found for: MOYA55M PLAN Continue IV albumin Monitor renal panel [...] AM Colten Huertas MD, KISHOR LIN FNKF lithography contact worker Div. of Nephrology [facility] E-mail: [email or web address] * Carmen Dolores, OT - 10/07/2024 11:09 AM EDT Occupational Therapy Initial Assessment and Discharge Name: Julien Gilbert : 1985 Attending Physician: Fouzia Rene MD Admission Diagnosis: AMS Date: 10/07/2024 Room: 42/[facility] Reviewed Pertinent hospital course: Yes Hospital [...] at 10/06/2024 2:33 AM EDT US Duplex Eqq-Cnr-Zcrnbzu Comp (Results Pending) US Abdomen Complete (Results [...] head imaging has been performed at [facility]. -CT Head w/o contrast -Imaging showed [...] Select Supplement: Boost-1 kcal/ml supplement ([facility] only) Code Status: Full Code Signed: EILEEN [...] I reviewed the documentation by the medical service team leader and agree as documented. Any [...] home lactulose and rifaximin Spontaneous Bacterial Peritonitis ([facility]): Cultures from OSH are growing gram- positive organisms.He is on vancomycin and ceftriaxone for now. Will follow-up on speciation and sensitivities. For now, he is afebrile and his white counts have trended down and mental status is improving. Decompensated cirrhosis ([facility]): Appreciate hepatology consult. He has started his transplant evaluation as an outpatient. We will follow-up with hepatology to discuss any inpatient testing that may need to be needed. - MELD labs daily - Continue home regimen with ursodiol, rifaximin and lactulose NADIYA (acute kidney injury) ([facility]): Appreciate nephrology consult. Likely has hepatorenal [...] needed for pain. Continue to monitor. Thrombocytopenia ([facility]) Renal mass, left CKD (chronic kidney disease) stage 4, GFR 15-29 ml/min ([facility]) Metabolic acidosis with normal anion gap [...] another specialty or practice, other licensed professional (PT/OT/CRITICAL CARE TRANSPORT NURSE/RT), or a non-medical community professional: Nephrology, Hepatology Labs reviewed (1 pt each): CMP, CBC Test results reviewed (1 pt each): CXR, Head CT Review of notes from a different specialty or different practice: Nephrology, hepatology Use of parenteral controlled substances * Kiet Gardiner, PharmD - 10/06/2024 1:07 PM EDT Images from the original note were not included. [facility] Clinical Pharmacy Service: Vancomycin Monitoring Consult Julien Glibert is a 39 y.o. male currently being [...] AM #2 Blood culture-Peripheral site 2 Preliminary [id number] Peripheral 10/06/2024 1:04 AM #1 Blood culture-Peripheral site 1 Preliminary [id number] Peripheral --Vancomycin Concentrations-- Lab Results (Last 7 [...] US Retroperitoneal complete (Results Pending) US Duplex Wvr-Pqb-Lkylvnz Comp (Results Pending) CT Head WO contrast [...] PM EDT Hospital Medicine Attending Supervision Note [facility] // [facility] Julien Gilbert was seen 10/06/24 on [...] Lerner MD - 10/05/2024 2:42 PM EDT [facility] Department of Medicine TRANSFER CALL [...] with plan to transfer to [facility] if needing admission. In the ED, pt [...] Studies: Na 129 K 4.2 Cl 101 Lcnyen94 BUN 62 (up from baseline) Cr 3.6 [...] PM EDT [facility] PRE-SEDATION ASSESSMENT, HISTORY & PHYSICAL Date: 10/14/2024 [...] Neuro: AOx3 AUC For Cath Indication(s) for Technical Sales Representatives Visit: Visit Indicators: Suspected CAD 2. Chest Pain Symptom Assessment: Asymptomatic 3. Heart Failure: Yes Class II 4. [facility] Clinical Frailty Scale: Mildly Frail Sedation Plan: Moderate Sedation with Local Anesthesia Antibiotic prophylaxis is not indicated. Mani Quan Interventional Medical Records Coordinator Pager: [phone] [1] Patient Active Problem List Diagnosis Decompensated cirrhosis ([facility]) Acute kidney injury superimposed on CKD ([facility]) Alcohol use disorder Metabolic encephalopathy Hypertension Other hyperlipidemia Thrombocytopenia ([facility]) Renal mass, left Abdominal pain Hypokalemia CKD (chronic kidney disease) stage 4, GFR 15-29 ml/min ([facility]) Metabolic acidosis with normal anion gap and bicarbonate losses GERD (gastroesophageal reflux disease) Hypothyroidism Itching Anemia BRBPR (bright red blood per rectum) SBP (spontaneous bacterial peritonitis) ([facility]) C Diff Diarrhea C. difficile diarrhea Neck pain with history of cervical spinal surgery Cosigned by Irving Matta MD at 10/16/2024 10:54 AM EDT Associated attestation - Irving Matta MD - 10/16/2024 10:54 AM EDT Agree * Gerri Peterson MD - 10/10/2024 10:05 AM EDT [facility] PRE-SEDATION ASSESSMENT, HISTORY & PHYSICAL Date: 10/10/2024 [...] Patient Active Problem List Diagnosis Decompensated cirrhosis ([facility]) Acute kidney injury superimposed on CKD ([facility]) Alcohol use disorder Metabolic encephalopathy Hypertension Other hyperlipidemia Thrombocytopenia ([facility]) Renal mass, left Abdominal pain Hypokalemia CKD (chronic kidney disease) stage 4, GFR 15-29 ml/min ([facility]) Metabolic acidosis with normal anion gap and bicarbonate losses GERD (gastroesophageal reflux disease) Hypothyroidism Itching Anemia BRBPR (bright red blood per rectum) SBP (spontaneous bacterial peritonitis) ([facility]) C Diff Diarrhea C. difficile diarrhea Neck [...] Resource Strain: Low Risk (07/09/2024) Received from [facility] Overall Financial Resource Strain (CARDIA) Difficulty of [...] No Physical Activity: Unknown (07/14/2024) Received from [facility] Exercise Vital Sign Days of Exercise per Week: Patient unable to answer Minutes of Exercise per Session: Not on file Stress: Patient Unable To Answer (07/14/2024) Received from [facility] [place] [facility] - Occupational Stress Questionnaire Feeling of Stress : Patient unable to answer Social Connections: Patient Unable To Answer (07/14/2024) Received from [facility] Social Connection and Isolation Panel [NHANES] Frequency [...] folic acid 1 mg Daily 0900 Bisi Hernandez, DO 1 mg at 10/09/24 0801 heparin 5,000 Units 3 times per day Bisi Akella, DO 5,000 Units at 10/09/24 1306 lactulose 20 g TID Bisi Hernandez, DO 20 g at 10/09/24 1305 levothyroxine [...] values in this interval not displayed. Imaging: @[id number]@ I have personally reviewed the imaging and have noted the following: Large recanalized umbilical vein Perihilar varices Replaced right hepatic artery Splenomegaly Spontaneous splenorenal shunt Large volume ascites, No portal vein thrombosis Assessment/Plan: A 39 y.o. male with ETOH decompensated by ascites, hepatic encephalopathy,bleeding esophageal Varices. Use and allocation of SCD, FISHING ROD MARKER, DCD and LDLT allografts discussed in detail. [...] from surgery (5%). I also explained the termite treater risks of transplantation and immunosuppression including viral infection and cancer both solid organand lymphoma. Kemar Sahni MD, Fellow, Multiorgan Abdominal Transplant Surgery. [facility]. 10/09/2024 3:16 PM [1] Allergies [...] Ortiz MD - 10/06/2024 12:00 AM EDT [facility] Internal Medicine - History and [...] taken to Radiology overnight for imaging upload. [facility] performed a bedside paracentesis and sent studies for SBP analysis. [facility] to see if labs have resulted. Review of Systems 14 pt ROS conducted and negative aside from that mentioned in above HPI Past Medical and Social History Lives in [place], [place] at bedside Notes that the patient [...] labs pending on admission to [facility] Assessment & Plan Julien Gilbert is a [...] AM EDT Hospital Medicine Attending Supervision Note [facility] // [facility] Julien Gilbert was seen 10/06/24 on [...] lethargy. HE was seen at [facility] ED were CT head unremarkable and RUQ with gallstones, abdominal ascites diagnostic para done and started on empiric CTX. Labs remarkable at OSH for K 4.2 Cl 101 Eutmkx79 BUN 62 (up from baseline) Cr 3.6 [...] another specialty or practice, other licensed professional (PT/OT/CRITICAL CARE TRANSPORT NURSE/RT), or a non-medical community professional: ed team [...] Medicine Department of Internal Medicine Pager ID: [phone] 6:04 AM, 10/06/2024 documented in this encounter [...] & Interventional Radiology 10/10/2024,1:55 PM [facility]: [phone]) * Lino Soto MD - 10/10/2024 12:06 PM EDT EGD Brief Op Note Julien Gilbert 10/05/2024 - 10/10/2024 Pre-op Diagnosis: Alcoholic cirrhosis of liver with ascites (CMS-HCC) [K70.31] Post-op Diagnosis: Portal gastropathy, Medium size, non-bleeding esophageal varices Procedure(s): EGD Surgeon(s): Lino Soto MD Anesthesia: MAC (Monitor Anesthesia Care) Staff: Fellow: Gerri Peterson MD Endoscopy Nurse: Kandice Castaneda RN Java Android Developer: Diana Kemp Estimated Blood Loss: Minimal Specimens: Drains: There were no complications unless listed below. LINO SOTO MD Date: 10/10/2024 Time: 12:18 PM * Lino Soto MD - 10/10/2024 11:48 AM EDT [id number] Procedure Date: 10/10/2024 11:48 AM Patient Name: Julien Gilbert Date of : 1985 Admit Type: Inpatient Age: 39 Gender: Male Note Status: Finalized Attending MD: Lino Soto MD, [id number] Procedure: Upper GI endoscopy Indications: Gastroesopahgeal variceal [...] verified by the physician, the nurse, the mold washer and the gem technician in the pre-procedure area in the [...] to hypotension Procedure Code(s): --- Professional --- 17221, GC, Esophagogastroduodenoscopy, flexible, transoral; diagnostic, including collection of specimen(s) by brushing or washing, when performed (separate procedure) Diagnosis Code(s): --- Professional --- 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 All rights reserved. The codes documented in this report are preliminary and upon braille coder review may be revised to meet [...] In: 12:10:16 PM Scope Out: 12:17:[address] [place] [address], [id number] * Gill Le RN - 10/09/2024 4:00 [...] permission for the patient to return to his room. Patient was transported to his room with [...] time. 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 Describes significant anxiety that occasionally [...] need for sleep. Has not been on [facility] since stopping the cymbalta. [...] mother is and his father resides in [facility]. Patient earned a graduate degree and never served in the . 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 He was raised [place] and denied current engagement in any community [...] or other abnormalities Cognition/Memory: short term and longterm memory intact. Attention and concentration: is not [...] from the original note were not included. [facility] General Cardiology Consult Note Referring [...] at baseline or with provocation, shows no ohneq-yi-zkjw atrial level shunt. - Pulmonary arteries: Systolic [...] with Cardiology can be scheduled by calling [phone]. Thank you for the opportunity to participate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 Function Panel (10/15/2024 6:08 AM EDT) Total Bilirubin 7.1(H) 0.0 - 1.5 mg/dL 10/15/2024 6:45 AM EDT [facility] Bilirubin, Direct 3.77(H) 0.00 - 0.40 mg/dL 10/15/2024 6:45 AM EDT [facility] AST 39 13 - 39 U/L 10/15/2024 6:45 AM EDT [facility] ALT 22 7 - 52 U/L 10/15/2024 6:45 AM EDT [facility] Alkaline Phosphatase 115 36 - 125 U/L 10/15/2024 6:45 AM EDT [facility] Total Protein 4.8(L) 6.4 - 8.9 g/dL 10/15/2024 6:45 AM EDT [facility] Albumin 3.2(L) 3.5 - 5.7 g/dL 10/15/2024 6:45 AM EDT [facility] Bilirubin, Indirect 3.33(H) 0.00 - 1.10 mg/dL 10/15/2024 6:45 AM EDT [facility] Plasma 10/15/2024 6:08 AM EDT 10/15/2024 6:17 AM EDT Eileen Schroeder MD, PhD LAB BLOOD ORDERABLES Final Result Performing Organization Address [facility] Co de Phone Number [facility] [address] * Magnesium (10/15/2024 6:08 AM EDT) Magnesium 1.8 1.5 - 2.5 mg/dL 10/15/2024 6:45 AM EDT [facility] Plasma 10/15/2024 6:08 AM EDT 10/15/2024 6:17 AM EDT Eileen Schroeder MD, PhD LAB BLOOD ORDERABLES Final Result Performing Organization Address [facility] de Phone Number [facility] [address] * (ABNORMAL) Renal Function Panel w/EGFR (10/15/2024 6:08 AM EDT) Sodium 135 133 - 146 mmol/L 10/15/2024 6:45 AM EDT [facility] Potassium 3.4(L) 3.5 - 5.3 mmol/L 10/15/2024 6:45 AM EDT [facility] Chloride 107 98 - 110 mmol/L 10/15/2024 6:45 AM EDT [facility] CO2 17(L) 21 - 33 mmol/L 10/15/2024 6:45 AM EDT [facility] Anion Gap 11 3 - 16 mmol/L 10/15/2024 6:45 AM EDT [facility] BUN 55(H) 7 - 25 mg/dL 10/15/2024 6:45 AM EDT [facility] Creatinine 2.88(H) 0.60 - 1.30 mg/dL 10/15/2024 6:45 AM EDT [facility] Glucose 125(H) 70 - 100 mg/dL 10/15/2024 6:45 AM EDT [facility] Calcium 8.4(L) 8.6 - 10.3 mg/dL 10/15/2024 6:45 AM EDT [facility] Phosphorus 3.9 2.1 - 4.7 mg/dL 10/15/2024 6:45 AM EDT [facility] Albumin 3.2(L) 3.5 - 5.7 g/dL 10/15/2024 6:45 AM EDT [facility] Osmolality, Calculated 297 278 - 305 mOsm/kg 10/15/2024 6:45 AM EDT [facility] EGFR 27 10/15/2024 6:45 AM EDT [facility] Comment:As of 2021, the estimated GFR [...] Final Result [facility] [address] [place] [address], [facility] * (ABNORMAL) CBC (10/15/2024 6:08 AM EDT) WBC 4.6 3.8 - 10.8 10E3/uL 10/15/2024 6:51 AM EDT [facility] RBC 1.94(L) 4.20 - 5.80 10E6/uL 10/15/2024 6:51 AM EDT [facility] Hemoglobin 7.1(L) 13.2 - 17.1 g/dL 10/15/2024 6:51 AM EDT [facility] Hematocrit 19.6(L) 38.5 - 50.0 % 10/15/2024 6:51 AM EDT [facility] MCV 100.8(H) 80.0 - 100.0 fL 10/15/2024 6:51 AM EDT [facility] MCH 36.7(H) 27.0 - 33.0 pg 10/15/2024 6:51 AM EDT [facility] MCHC 36.4(H) 32.0 - 36.0 g/dL 10/15/2024 6:51 AM EDT [facility] RDW 17.3(H) 11.0 - 15.0 % 10/15/2024 6:51 AM EDT [facility] Platelets 34(L) 140 - 400 10E3/uL 10/15/2024 6:51 AM EDT [facility] Comment:Specimen checked for clots. None detected. MPV 8.7 7.5 - 11.5 fL 10/15/2024 6:51 AM EDT [facility] Whole Blood 10/15/2024 6:08 AM EDT 10/15/2024 6:17 AM EDT us Eileen Schroeder MD, PhD LAB BLOOD ORDERABLES Final Result [facility] [address] [place], [place] [address] * PRA-HLA Ab Screen (Cytotoxic) (10/15/2024 6:08 AM EDT) Pathologist [facility] The request and specimen(s) for this test have been received and transported to the [facility] at [address] [place] [address]. The [facility] will report results directly to the client. 10/15/2024 6:42 AM EDT [facility] Comment:The request and spec imen(s) for this test have been received and transported to the [facility] at [address] [place] [address]. The [facility] will report results directly to the client. Serum 10/15/2024 6:08 AM EDT 10/15/2024 6:42 AM EDT us Cosmo Pacheco MD LAB BLOOD ORDERABLES Final Resul t [facility] [address] [place] [address] * LEFT HEART CATH (10/14/2024 2:09 PM EDT) 10/14/2024 11:4 7 AM EDT Narrative [facility] - 10/14/2024 9:27 PM EDT *[facility]* Cardiac Technical Sales Representatives [address] [place] [address] CATHETERIZATION LAB STUDY Patient: Julien Gilbert Age: [...] manner. 3. Right radial artery access. A [id number] Glidesheath - Slender - .021 sheath was [...] + + !LV pressure s/d, ed !, dP/ut=8616ck Hg/s! + + + !Aortic pressure s/d (m)!106/58 (75) ! + + + ATTESTATION: Dr. Matta was present for the entire procedure. Dr. Jay Quan was the initial author of this report. Prepared and electronically signed by Irving Matta MD [id number] Procedure Note Irving Matta MD - 10/14/2024 *[facility]* Cardiac Technical Sales Representatives [address] [place] [id number] CATHETERIZATION LAB STUDY Patient: Julien Gilbert Age: [...] manner. 3. Right radial artery access. A [id number] Glidesheath - Slender - .021sheath was advanced [...] complications. Contrast: Omnipaque 350 25ml (total dose). Fdugeocxm256 125ml (wasted). Radiation: Fluoroscopy time: 15min. Total [...] + + !LV pressure s/d, ed !, dP/hs=8259rn Hg/s! + + + !Aortic pressure s/d (m)!106/58 (75) ! + + + ATTESTATION: Dr. Matta was present for the entire procedure. Dr. Jay Quan wasthe initial author of this report. Prepared and electronically signed by Irving Matta MD [id number] [place] [id number] Final Result Performing Organization Address [facility] de Phone Number [facility] * Transfuse Fresh Frozen Plasma Transfusion Rate: Per dept routine (10/14/2024 2:08 PM EDT) us Eleazar Nguyễn MD NURSING TREATMENT ORDER PAL - BLOOD ADMIN Final Result Performing Organization Address [facility] de Phone Number EXTERNAL * Transfuse Fresh Frozen Plasma Transfusion Rate: Per dept routine, 1 Units (10/14/2024 2:08 PM EDT) us Eleazar Nguyễn MD NURSING TREATMENT ORDER PAL - BLOOD ADMIN Final Result Performing Organization Address [facility] de Phone Number EXTERNAL [...] Antibody Screen Negative 10/14/2024 9:11 AM EDT [facility] Blood 10/14/2024 8:21 AM EDT 10/14/2024 8:33 AM EDT Narrative [facility] - 10/14/2024 9:26 AM EDT Testing performed by [facility] Transfusion Service Eleazar Nguyễn MD BLOOD BANK TEST ORDERAB LES Final Result Performing Organization Address [facility] Co de Phone Number [facility] [address] [facility]. [address] * ABO/Rh (10/14/2024 8:21 AM EDT) ABO Grouping O 10/14/2024 8:55 AM EDT [facility] Rh Type Positive 10/14/2024 8:55 AM EDT [facility] Blood 10/14/2024 8:21 AM EDT 10/14/2024 8:33 AM EDT us Eleazar Nguyễn MD BLOOD BANK TEST ORDERAB LES Final Result Performing Organization Address [facility] Co de Phone Number [facility] [address] [facility]. [address] * (ABNORMAL) Protime-INR (10/14/2024 2:53 AM EDT) Protime 23.8(H) 12.1 - 15.1 seconds 10/14/2024 4:34 AM EDT [facility] INR 2.1(H) 0.9 - 1.1 10/14/2024 4:34 AM EDT [facility] Comment: RECOMMENDED THERAPEUTIC RANGES USING INR : Stable oral anticoagulant therapy: 2.0 - 3.0 Mechanical prosthetic heart valve: 2.5 - 3.5 Recurrent acute myocardial infarction: 2.5 - 3.5 Plasma 10/14/2024 2:53 AM EDT 10/14/2024 4:16 AM EDT Eileen Schroeder MD, PhD LAB BLOOD ORDERABLES Final Result [facility] [address] [place] [id number], [facility] * (ABNORMAL) Hepatic Function Panel (10/14/2024 2:53 AM EDT) Total Bilirubin 7.2(H) 0.0 - 1.5 mg/dL 10/14/2024 4:45 AM EDT [facility] Bilirubin, Direct 3.86(H) 0.00 - 0.40 mg/dL 10/14/2024 4:45 AM EDT [facility] AST 41(H) 13 - 39 U/L 10/14/2024 4:45 AM EDT [facility] ALT 22 7 - 52 U/L 10/14/2024 4:45 AM EDT [facility] Alkaline Phosphatase 119 36 - 125 U/L 10/14/2024 4:45 AM EDT [facility] Total Protein 4.6(L) 6.4 - 8.9 g/dL 10/14/2024 4:45 AM EDT [facility] Albumin 3.3(L) 3.5 - 5.7 g/dL 10/14/2024 4:45 AM EDT [facility] Bilirubin, Indirect 3.34(H) 0.00 - 1.10 mg/dL 10/14/2024 4:45 AM EDT [facility] Plasma 10/14/2024 2:53 AM EDT 10/14/2024 4:16 AM EDT Eileen Schroeder MD, PhD LAB BLOOD ORDERABLES Final Result [facility] [address] [facility]. [address] * Magnesium (10/14/2024 2:53 AM EDT) Magnesium 1.9 1.5 - 2.5 mg/dL 10/14/2024 4:45 AM EDT [facility] Plasma 10/14/2024 2:53 AM EDT 10/14/2024 4:16 AM EDT us Eileen Schroeder MD, PhD LAB BLOOD ORDERABLES Final Result Performing Organization Address City/[facility]/ZIP Co de Phone Number [facility] [address] [place] [facility]. [address] * (ABNORMAL) Renal Function Panel w/EGFR (10/14/2024 2:53 AM EDT) Sodium 136 133 - 146 mmol/L 10/14/2024 4:45 AM EDT [facility] Potassium 3.5 3.5 - 5.3 mmol/L 10/14/2024 4:45 AM EDT [facility] Chloride 107 98 - 110 mmol/L 10/14/2024 4:45 AM EDT [facility] CO2 16(L) 21 - 33 mmol/L 10/14/2024 4:45 AM EDT [facility] Anion Gap 13 3 - 16 mmol/L 10/14/2024 4:45 AM EDT [facility] BUN 55(H) 7 - 25 mg/dL 10/14/2024 4:45 AM EDT [facility] Creatinine 3.01(H) 0.60 - 1.30 mg/dL 10/14/2024 4:45 AM EDT [facility] Glucose 95 70 - 100 mg/dL 10/14/2024 4:45 AM EDT [facility] Calcium 8.5(L) 8.6 - 10.3 mg/dL 10/14/2024 4:45 AM EDT [facility] Phosphorus 4.4 2.1 - 4.7 mg/dL 10/14/2024 4:45 AM EDT [facility] Albumin 3.3(L) 3.5 - 5.7 g/dL 10/14/2024 4:45 AM EDT [facility] Osmolality, Calculated 297 278 - 305 mOsm/kg 10/14/2024 4:45 AM EDT [facility] EGFR 26 10/14/2024 4:45 AM EDT [facility] Comment:As of 2021, the estimated GFR [...] Final Result [facility] [id number] [id number], [facility] * (ABNORMAL) CBC (10/14/2024 2:53 AM EDT) WBC 5.5 3.8 - 10.8 10E3/uL 10/14/2024 5:00 AM EDT [facility] RBC 2.09(L) 4.20 - 5.80 10E6/uL 10/14/2024 5:00 AM EDT [facility] Hemoglobin 7.6(L) 13.2 - 17.1 g/dL 10/14/2024 5:00 AM EDT [facility] Hematocrit 21.3(L) 38.5 - 50.0 % 10/14/2024 5:00 AM EDT [facility] MCV 101.7(H) 80.0 - 100.0 fL 10/14/2024 5:00 AM EDT [facility] MCH 36.3(H) 27.0 - 33.0 pg 10/14/2024 5:00 AM EDT [facility] MCHC 35.7 32.0 - 36.0 g/dL 10/14/2024 5:00 AM EDT [facility] RDW 17.6(H) 11.0 - 15.0 % 10/14/2024 5:00 AM EDT [facility] Platelets 35(L) 140 - 400 10E3/uL 10/14/2024 5:00 AM EDT [facility] Comment: Specimen checked for clots. None detected. Slide Reviewed for PLT Clumps. None Seen. MPV 8.5 7.5 - 11.5 fL 10/14/2024 5:00 AM EDT [facility] LAB Whole Blood 10/14/2024 2:53 AM EDT 10/14/2024 4:17 AM EDT us Eileen Schroeder MD, PhD LAB BLOOD ORDERABLES Final Result [facility] [address] [id number], [facility] * Cardiac Cath [...] of GADOBUTROL 1 MMOL/ML INTRAVENOUS SYRINGE ([facility]) administered intravenously COMPARISON: CT 09/03/2024. Ultrasound 10/07/2024. [...] of GADOBUTROL 1 MMOL/ML INTRAVENOUS SYRINGE ([facility])administered intravenously COMPARISON: CT 09/03/2024. Ultrasound 10/07/2024. Outside [...] * (ABNORMAL) Protime-INR (10/13/2024 5:35 AM EDT) [facility] Protime 24.4(H) 12.1 - 15.1 seconds 10/13/2024 6:12 AM EDT [facility] INR 2.1(H) 0.9 - 1.1 10/13/2024 6:12 AM EDT [facility] Comment: RECOMMENDED THERAPEUTIC RANGES USING INR : Stable oral anticoagulant therapy: 2.0 - 3.0 Mechanical prosthetic heart valve: 2.5 - 3.5 Recurrent acute myocardial infarction: 2.5 - 3.5 Plasma 10/13/2024 5:35 AM EDT 10/13/2024 5:52 AM EDT Eileen Schroeder MD, PhD LAB BLOOD ORDERABLES Final Result [facility] [address] * (ABNORMAL) Hepatic Function Panel (10/13/2024 5:35 AM EDT) [facility] Total Bilirubin 6.5(H) 0.0 - 1.5 mg/dL 10/13/2024 6:30 AM EDT [facility] Bilirubin, Direct 3.53(H) 0.00 - 0.40 mg/dL 10/13/2024 6:30 AM EDT [facility] AST 42(H) 13 - 39 U/L 10/13/2024 6:30 AM EDT [facility] ALT 19 7 - 52 U/L 10/13/2024 6:30 AM EDT [facility] Alkaline Phosphatase 108 36 - 125 U/L 10/13/2024 6:30 AM EDT [facility] Total Protein 4.4(L) 6.4 - 8.9 g/dL 10/13/2024 6:30 AM EDT [facility] Albumin 3.1(L) 3.5 - 5.7 g/dL 10/13/2024 6:30 AM EDT [facility] Bilirubin, Indirect 2.97(H) 0.00 - 1.10 mg/dL 10/13/2024 6:30 AM EDT [facility] Plasma 10/13/2024 5:35 AM EDT 10/13/2024 5:52 AM EDT Eileen Schroeder MD, PhD LAB BLOOD ORDERABLES Final Result Performing Organization Address City/[facility]/ZIP Co de Phone Number [facility] [address] [place] [address] * Magnesium (10/13/2024 5:35 AM EDT) Magnesium 2.0 1.5 - 2.5 mg/dL 10/13/2024 6:30 AM EDT [facility] Plasma 10/13/2024 5:35 AM EDT 10/13/2024 5:52 AM EDT us Eileen Schroeder MD, PhD LAB BLOOD ORDERABLES Final Result Performing Organization Address [facility] Co de Phone Number [facility] [address] [place] [address] * (ABNORMAL) Renal Function Panel w/EGFR (10/13/2024 5:35 AM EDT) Sodium 134 133 - 146 mmol/L 10/13/2024 6:30 AM EDT [facility] Potassium 3.7 3.5 - 5.3 mmol/L 10/13/2024 6:30 AM EDT [facility] Chloride 109 98 - 110 mmol/L 10/13/2024 6:30 AM EDT [facility] CO2 14(L) 21 - 33 mmol/L 10/13/2024 6:30 AM EDT [facility] Anion Gap 11 3 - 16 mmol/L 10/13/2024 6:30 AM EDT [facility] BUN 54(H) 7 - 25 mg/dL 10/13/2024 6:30 AM EDT [facility] Creatinine 2.99(H) 0.60 - 1.30 mg/dL 10/13/2024 6:30 AM EDT [facility] Glucose 116(H) 70 - 100 mg/dL 10/13/2024 6:30 AM EDT [facility] Calcium 8.3(L) 8.6 - 10.3 mg/dL 10/13/2024 6:30 AM EDT [facility] Phosphorus 4.5 2.1 - 4.7 mg/dL 10/13/2024 6:30 AM EDT [facility] Albumin 3.1(L) 3.5 - 5.7 g/dL 10/13/2024 6:30 AM EDT [facility] Osmolality, Calculated 294 278 - 305 mOsm/kg 10/13/2024 6:30 AM EDT [facility] EGFR 26 10/13/2024 6:30 AM EDT [facility] Comment:As of 2021, the estimated GFR [...] Final Result [facility] [address] [facility] [place] [address], [facility] * (ABNORMAL) CBC (10/13/2024 5:35 AM EDT) WBC 4.7 3.8 - 10.8 10E3/uL 10/13/2024 6:22 AM EDT [facility] RBC 2.06(L) 4.20 - 5.80 10E6/uL 10/13/2024 6:22 AM EDT [facility] Hemoglobin 7.4(L) 13.2 - 17.1 g/dL 10/13/2024 6:22 AM EDT [facility] Hematocrit 21.7(L) 38.5 - 50.0 % 10/13/2024 6:22 AM EDT [facility] MCV 105.4(H) 80.0 - 100.0 fL 10/13/2024 6:22 AM EDT [facility] MCH 35.9(H) 27.0 - 33.0 pg 10/13/2024 6:22 AM EDT [facility] MCHC 34.0 32.0 - 36.0 g/dL 10/13/2024 6:22 AM EDT [facility] RDW 18.5(H) 11.0 - 15.0 % 10/13/2024 6:22 AM EDT [facility] Platelets 35(L) 140 - 400 10E3/uL 10/13/2024 6:22 AM EDT [facility] Comment: CNV Specimen checked for clots. None detected. MPV 8.4 7.5 - 11.5 fL 10/13/2024 6:22 AM EDT [facility] Whole Blood 10/13/2024 5:35 AM EDT 10/13/2024 5:53 AM EDT us Eileen Schroeder MD, PhD LAB BLOOD ORDERABLES Final Result [facility] [address] * (ABNORMAL) Ammonia (10/13/2024 5:35 AM EDT) Ammonia 203(HH) 27 - 90 ug/dL 10/13/2024 7:16 AM EDT [facility] Comment: HEMOLYSIS EVIDENT. RESULTS MAY BE INFLUENCED. Critical Result [id number]_[id number] Called to and read back by: KEY MELO RN at: 10/13/2024 07:15:55 by:CASESE Plasma 10/13/2024 5:35 AM EDT 10/13/2024 6:19 AM EDT Ellis Mays DO LAB BLOOD ORDERABLES Final Resul t Performing Organization Address [facility] Co de Phone Number [facility] [address] [facility]. [address] * CARISA Rhythm Strip - Scan (10/12/2024 10:30 PM EDT) us Scanning Uchhim SCAN DOCS - NO RESULTS Final Res ult * (ABNORMAL) Protime-INR (10/12/2024 5:44 AM EDT) Protime 25.7(H) 12.1 - 15.1 seconds 10/12/2024 6:12 AM EDT [facility] INR 2.3(H) 0.9 - 1.1 10/12/2024 6:12 AM EDT [facility] Comment: RECOMMENDED THERAPEUTIC RANGES USING INR : Stable oral anticoagulant therapy: 2.0 - 3.0 Mechanical prosthetic heart valve: 2.5 - 3.5 Recurrent acute myocardial infarction: 2.5 - 3.5 Plasma 10/12/2024 5:44 AM EDT 10/12/2024 5:58 AM EDT Eileen Schroeder MD, PhD LAB BLOOD ORDERABLES Final Result Performing Organization Address [facility] Co de Phone Number [facility] [address] [facility]. [address] * (ABNORMAL) Hepatic Function Panel (10/12/2024 5:44 AM EDT) Total Bilirubin 6.5(H) 0.0 - 1.5 mg/dL 10/12/2024 6:29 AM EDT [facility] Bilirubin, Direct 3.64(H) 0.00 - 0.40 mg/dL 10/12/2024 6:29 AM EDT [facility] AST 40(H) 13 - 39 U/L 10/12/2024 6:29 AM EDT [facility] ALT 19 7 - 52 U/L 10/12/2024 6:29 AM EDT [facility] Alkaline Phosphatase 99 36 - 125 U/L 10/12/2024 6:29 AM EDT [facility] Total Protein 4.2(L) 6.4 - 8.9 g/dL 10/12/2024 6:29 AM EDT [facility] Albumin 3.1(L) 3.5 - 5.7 g/dL 10/12/2024 6:29 AM EDT [facility] Bilirubin, Indirect 2.86(H) 0.00 - 1.10 mg/dL 10/12/2024 6:29 AM EDT [facility] Plasma 10/12/2024 5:44 AM EDT 10/12/2024 5:58 AM EDT Eileen Schroeder MD, PhD LAB BLOOD ORDERABLES Final Result Performing Organization Address City/[facility]/ZIP Co de Phone Number [facility] [address] * Magnesium (10/12/2024 5:44 AM EDT) Magnesium 1.9 1.5 - 2.5 mg/dL 10/12/2024 6:29 AM EDT [facility] Plasma 10/12/2024 5:44 AM EDT 10/12/2024 5:58 AM EDT Eileen Schroeder MD, PhD LAB BLOOD ORDERABLES Final Result [facility] [address] * (ABNORMAL) Renal Function Panel w/EGFR (10/12/2024 5:44 AM EDT) Sodium 135 133 - 146 mmol/L 10/12/2024 6:29 AM EDT [facility] Potassium 3.7 3.5 - 5.3 mmol/L 10/12/2024 6:29 AM EDT [facility] Chloride 109 98 - 110 mmol/L 10/12/2024 6:29 AM EDT [facility] CO2 17(L) 21 - 33 mmol/L 10/12/2024 6:29 AM EDT [facility] Anion Gap 9 3 - 16 mmol/L 10/12/2024 6:29 AM EDT [facility] BUN 52(H) 7 - 25 mg/dL 10/12/2024 6:29 AM EDT [facility] Creatinine 2.94(H) 0.60 - 1.30 mg/dL 10/12/2024 6:29 AM EDT [facility] Glucose 121(H) 70 - 100 mg/dL 10/12/2024 6:29 AM EDT [facility] Calcium 8.5(L) 8.6 - 10.3 mg/dL 10/12/2024 6:29 AM EDT [facility] Phosphorus 4.6 2.1 - 4.7 mg/dL 10/12/2024 6:29 AM EDT [facility] Albumin 3.1(L) 3.5 - 5.7 g/dL 10/12/2024 6:29 AM EDT [facility] Osmolality, Calculated 295 278 - 305 mOsm/kg 10/12/2024 6:29 AM EDT [facility] EGFR 27 10/12/2024 6:29 AM EDT [facility] Comment:As of 2021, the estimated GFR [...] LAB BLOOD ORDERABLES Final Result [facility] [address] [address], [facility] * (ABNORMAL) CBC (10/12/2024 5:44 AM EDT) WBC 3.3(L) 3.8 - 10.8 10E3/uL 10/12/2024 7:06 AM EDT [facility] RBC 1.95(L) 4.20 - 5.80 10E6/uL 10/12/2024 7:06 AM EDT [facility] Hemoglobin 7.2(L) 13.2 - 17.1 g/dL 10/12/2024 7:06 AM EDT [facility] Hematocrit 19.7(L) 38.5 - 50.0 % 10/12/2024 7:06 AM EDT [facility] MCV 101.2(H) 80.0 - 100.0 fL 10/12/2024 7:06 AM EDT [facility] MCH 37.0(H) 27.0 - 33.0 pg 10/12/2024 7:06 AM EDT [facility] MCHC 36.5(H) 32.0 - 36.0 g/dL 10/12/2024 7:06 AM EDT [facility] RDW 17.6(H) 11.0 - 15.0 % 10/12/2024 7:06 AM EDT [facility] Platelets 30(L) 140 - 400 10E3/uL 10/12/2024 7:06 AM EDT [facility] Comment: Specimen checked for clots. None detected. Slide Reviewed for PLT Clumps. None Seen. Platelet Estimate Decreased 10/12/2024 7:06 AM EDT [facility] MPV 8.3 7.5 - 11.5 fL 10/12/2024 7:06 AM EDT [facility] Whole Blood 10/12/2024 5:44 AM EDT 10/12/2024 5:58 AM EDT Narrative [facility] - 10/12/2024 7:06 AM EDT Peripheral blood smear was scanned per review criteria approved by the laboratory medical technical writer. Eileen Schroeder MD, PhD LAB BLOOD ORDERABLES Final Result Performing Organization Address [facility] Co de Phone Number [facility] [address] * CARISA Rhythm Strip - Scan (10/11/2024 10:04 PM EDT) us Scanning Uchhim SCAN DOCS - NO RESULTS Final Res ult * (ABNORMAL) Protime-INR (10/11/2024 3:02 AM EDT) Protime 26.8(H) 12.1 - 15.1 seconds 10/11/2024 3:30 AM EDT [facility] INR 2.4(H) 0.9 - 1.1 10/11/2024 3:30 AM EDT [facility] Comment: RECOMMENDED THERAPEUTIC RANGES USING INR : Stable oral anticoagulant therapy: 2.0 - 3.0 Mechanical prosthetic heart valve: 2.5 - 3.5 Recurrent acute myocardial infarction: 2.5 - 3.5 Plasma 10/11/2024 3:02 AM EDT 10/11/2024 3:08 AM EDT Result [facility] Eileen Schroeder MD, PhD LAB BLOOD ORDERABLES Final Result Performing Organization Address [facility] Co de Phone Number [facility] [address] [facility]. [address] * (ABNORMAL) Hepatic Function Panel (10/11/2024 3:02 AM EDT) Total Bilirubin 7.3(H) 0.0 - 1.5 mg/dL 10/11/2024 3:38 AM EDT [facility] Bilirubin, Direct 3.85(H) 0.00 - 0.40 mg/dL 10/11/2024 3:38 AM EDT [facility] AST 39 13 - 39 U/L 10/11/2024 3:38 AM EDT [facility] ALT 20 7 - 52 U/L 10/11/2024 3:38 AM EDT [facility] Alkaline Phosphatase 88 36 - 125 U/L 10/11/2024 3:38 AM EDT [facility] Total Protein 4.5(L) 6.4 - 8.9 g/dL 10/11/2024 3:38 AM EDT [facility] Albumin 3.3(L) 3.5 - 5.7 g/dL 10/11/2024 3:38 AM EDT [facility] Bilirubin, Indirect 3.45(H) 0.00 - 1.10 mg/dL 10/11/2024 3:38 AM EDT [facility] Plasma 10/11/2024 3:02 AM EDT 10/11/2024 3:08 AM EDT Eileen Schroeder MD, PhD LAB BLOOD ORDERABLES Final Result Performing Organization Address [facility] Co de Phone Number [facility] [address] * Magnesium (10/11/2024 3:02 AM EDT) Magnesium 2.0 1.5 - 2.5 mg/dL 10/11/2024 3:38 AM EDT [facility] Plasma 10/11/2024 3:02 AM EDT 10/11/2024 3:08 AM EDT Eileen Schroeder MD, PhD LAB BLOOD ORDERABLES Final Result Performing Organization Address [facility]/ZIP Co de Phone Number [facility] [address] * (ABNORMAL) Renal Function Panel w/EGFR (10/11/2024 3:02 AM EDT) Sodium 134 133 - 146 mmol/L 10/11/2024 3:38 AM EDT [facility] Potassium 3.6 3.5 - 5.3 mmol/L 10/11/2024 3:38 AM EDT [facility] Chloride 108 98 - 110 mmol/L 10/11/2024 3:38 AM EDT [facility] CO2 16(L) 21 - 33 mmol/L 10/11/2024 3:38 AM EDT [facility] Anion Gap 10 3 - 16 mmol/L 10/11/2024 3:38 AM EDT [facility] BUN 49(H) 7 - 25 mg/dL 10/11/2024 3:38 AM EDT [facility] Creatinine 2.77(H) 0.60 - 1.30 mg/dL 10/11/2024 3:38 AM EDT [facility] Glucose 112(H) 70 - 100 mg/dL 10/11/2024 3:38 AM EDT [facility] Calcium 8.9 8.6 - 10.3 mg/dL 10/11/2024 3:38 AM EDT [facility] Phosphorus 3.5 2.1 - 4.7 mg/dL 10/11/2024 3:38 AM EDT [facility] Albumin 3.3(L) 3.5 - 5.7 g/dL 10/11/2024 3:38 AM EDT [facility] Osmolality, Calculated 292 278 - 305 mOsm/kg 10/11/2024 3:38 AM EDT [facility] EGFR 29 10/11/2024 3:38 AM EDT [facility] Comment:As of 2021, the estimated GFR [...] Final Result [facility] [address] [place] [address], [facility] * (ABNORMAL) CBC (10/11/2024 3:02 AM EDT) WBC 4.0 3.8 - 10.8 10E3/uL 10/11/2024 3:55 AM EDT [facility] RBC 2.11(L) 4.20 - 5.80 10E6/uL 10/11/2024 3:55 AM EDT [facility] Hemoglobin 7.7(L) 13.2 - 17.1 g/dL 10/11/2024 3:55 AM EDT [facility] Hematocrit 21.2(L) 38.5 - 50.0 % 10/11/2024 3:55 AM EDT [facility] MCV 100.5(H) 80.0 - 100.0 fL 10/11/2024 3:55 AM EDT [facility] MCH 36.4(H) 27.0 - 33.0 pg 10/11/2024 3:55 AM EDT [facility] MCHC 36.2(H) 32.0 - 36.0 g/dL 10/11/2024 3:55 AM EDT [facility] RDW 17.9(H) 11.0 - 15.0 % 10/11/2024 3:55 AM EDT [facility] Platelets 32(L) 140 - 400 10E3/uL 10/11/2024 3:55 AM EDT [facility] Comment: Specimen checked for clots. None detected. Slide Reviewed for PLT Clumps. None Seen. Platelet Estimate Decreased 10/11/2024 3:55 AM EDT [facility] MPV 8.1 7.5 - 11.5 fL 10/11/2024 3:55 AM EDT [facility] Whole Blood 10/11/2024 3:02 AM EDT 10/11/2024 3:08 AM EDT Narrative [facility] - 10/11/2024 3:55 AM EDT Peripheral blood smear was scanned per review criteria approved by the laboratory medical technical writer. us Eileen Schroeder MD, PhD LAB BLOOD ORDERABLES Final Result [facility] [address] [facility]. [address] * Vancomycin, random (10/11/2024 3:02 AM EDT) Vancomycin Random 13.4 ug/mL 10/11/2024 3:37 AM EDT [facility] Comment:Reference range not established for this test. Plasma 10/11/2024 3:02 AM EDT 10/11/2024 3:08 AM EDT us Jodi Ortiz PharmD LAB BLOOD ORDERABLES Final Result Performing Organization Address [facility] Co de Phone Number [facility] [address] [facility]. [address] * IR Paracentesis incl imaging guide [...] diagnostic and therapeutic paracentesis. Bakari Wahl CNP, Fruit Harvest Worker Procedure and Findings: The procedure was [...] Using ultrasound guidance, a 10 cm, 5-F Trekea Centesis catheter was placed into the right [...] for diagnostic andtherapeutic paracentesis. Bakari Wahl CNP, Fruit Harvest Worker Procedure and Findings: The procedure was [...] PM EDT [facility] Neutrophil %, Fluid 9 % 10/10/2024 5:29 PM EDT [facility] Lymphocytes %, Fluid 13 % 10/10/2024 5:29 PM EDT [facility] Mesothelial %, Fluid 6 % 10/10/2024 5:29 PM EDT [facility] Macrophage %, Fluid 72 % 10/10/2024 5:29 PM EDT [facility] RBC, Fluid 2,662 /uL 10/10/2024 4:41 PM EDT [facility] Total Nucleated Cells, Fluid 89 /uL 10/10/2024 4:41 PM EDT [facility] Comment:Total Nucleated Cell s represent WBCs and other nucleated cells in the fluid such as lining cells. Ascitic Fluid ABDOMEN / Unknown 1:51 PM EDT 10/10/2024 3:56 PM EDT us Gerri Peterson MD BODY FLUIDS AND STOOLS ORDERABL ES Final Result Performing Organization Address [facility] Co de Phone Number [facility] [address] [facility]. [address] * Body Fluid Culture plus Stain (10/10/2024 1:51 PM EDT) Gram Stain Result Cytospin Results: [facility] Gram Stain Result Polymorphonuclear Leukocytes Seen; [facility] Gram Stain Result No Organisms Seen; [facility] Culture Result No Growth After 5 Days [facility] Fluid ABDOMEN / Unknown 10/10/2024 1:51 PM EDT 10/10/2024 3:56 PM EDT Gerri Peterson MD MICROBIOLOGY - GENERAL ORDERABL ES Final Result Performing Organization Address [facility] de Phone Number [facility] [address] [facility]. [address] * UPPER GI ENDOSCOPY (10/10/2024 11:48 AM EDT) 10/10/2024 11:4 8 AM EDT Narrative [facility] - 10/10/2024 12:34 PM EDT [id number] Procedure Date: 10/10/2024 11:48 AM Patient Name: Julien Gilbert Date of : 1985 Admit Type: Inpatient Age: 39 Gender: Male Note Status: Finalized Attending MD: Lino Soto MD, [id number] Procedure: Upper GI endoscopy Indications: Gastroesopahgeal variceal [...] verified by the physician, the nurse, the mold washer and the gem technician in the pre-procedure area in the [...] to hypotension Procedure Code(s): --- Professional --- 14650, GC, Esophagogastroduodenoscopy, flexible, transoral; diagnostic, including collection of specimen(s) by brushing or washing, when performed (separate procedure) Diagnosis Code(s): --- Professional --- 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 All rights reserved. The codes documented in this report are preliminary and upon braille coder review may be revised to meet [...] In: 12:10:16 PM Scope Out: 12:17:[address] [place] [address], [id number] [place] Provider Not In System PROCEDURE/MINOR SURGICAL [...] Final Result [facility] [address] [place] [address], [facility] * (ABNORMAL) Hepatic Function Panel (10/10/2024 5:23 AM EDT) Total Bilirubin 8.6(H) 0.0 - 1.5 mg/dL 10/10/2024 6:21 AM EDT [facility] Bilirubin, Direct 4.65(H) 0.00 - 0.40 mg/dL 10/10/2024 6:21 AM EDT [facility] AST 40(H) 13 - 39 U/L 10/10/2024 6:21 AM EDT [facility] ALT 22 7 - 52 U/L 10/10/2024 6:21 AM EDT [facility] Alkaline Phosphatase 118 36 - 125 U/L 10/10/2024 6:21 AM EDT [facility] Total Protein 4.6(L) 6.4 - 8.9 g/dL 10/10/2024 6:21 AM EDT [facility] Albumin 3.3(L) 3.5 - 5.7 g/dL 10/10/2024 6:21 AM EDT [facility] Bilirubin, Indirect 3.95(H) 0.00 - 1.10 mg/dL 10/10/2024 6:21 AM EDT [facility] Plasma 10/10/2024 5:23 AM EDT 10/10/2024 5:50 AM EDT us Eileen Schroeder MD, PhD LAB BLOOD ORDERABLES Final Result [facility] [address] * Magnesium (10/10/2024 5:23 AM EDT) Magnesium 1.9 1.5 - 2.5 mg/dL 10/10/2024 6:21 AM EDT [facility] Plasma 10/10/2024 5:23 AM EDT 10/10/2024 5:50 AM EDT us Eileen Schroeder MD, PhD LAB BLOOD ORDERABLES Final Result Performing Organization Address [facility] Co de Phone Number [facility] [address] * (ABNORMAL) Renal Function Panel w/EGFR (10/10/2024 5:23 AM EDT) Sodium 135 133 - 146 mmol/L 10/10/2024 6:21 AM EDT [facility] Potassium 3.6 3.5 - 5.3 mmol/L 10/10/2024 6:21 AM EDT [facility] Chloride 108 98 - 110 mmol/L 10/10/2024 6:21 AM EDT [facility] CO2 17(L) 21 - 33 mmol/L 10/10/2024 6:21 AM EDT [facility] Anion Gap 10 3 - 16 mmol/L 10/10/2024 6:21 AM EDT [facility] BUN 53(H) 7 - 25 mg/dL 10/10/2024 6:21 AM EDT [facility] Creatinine 2.85(H) 0.60 - 1.30 mg/dL 10/10/2024 6:21 AM EDT [facility] Glucose 113(H) 70 - 100 mg/dL 10/10/2024 6:21 AM EDT [facility] Calcium 9.0 8.6 - 10.3 mg/dL 10/10/2024 6:21 AM EDT [facility] Phosphorus 3.3 2.1 - 4.7 mg/dL 10/10/2024 6:21 AM EDT [facility] Albumin 3.3(L) 3.5 - 5.7 g/dL 10/10/2024 6:21 AM EDT [facility] Osmolality, Calculated 295 278 - 305 mOsm/kg 10/10/2024 6:21 AM EDT [facility] EGFR 28 10/10/2024 6:21 AM EDT [facility] Comment:As of 2021, the estimated GFR [...] Talia M, Olivia DC, Emerita GUERRERO, Madelyn CRUZ, Felicia ESPINOSA, et al. A Unifying Approach for GFR Estimation: Recommendations of the NKF-ASN Task Force on Reassessing the inclusion of Race in Diagnosing Kidney Disease. Am J Kidney Dis. 2020. Plasma 10/10/2024 5:23 AM EDT 10/10/2024 5:50 AM EDT us Eileen Schroeder MD, PhD LAB BLOOD ORDERABLES Final Result Performing Organization Address City/State/[facility] Co de Phone Number [facility] [address] * (ABNORMAL) CBC (10/10/2024 5:23 AM EDT) WBC 5.1 3.8 - 10.8 10E3/uL 10/10/2024 6:14 AM EDT [facility] RBC 2.04(L) 4.20 - 5.80 10E6/uL 10/10/2024 6:14 AM EDT [facility] Hemoglobin 7.3(L) 13.2 - 17.1 g/dL 10/10/2024 6:14 AM EDT [facility] Hematocrit 20.6(L) 38.5 - 50.0 % 10/10/2024 6:14 AM EDT [facility] MCV 101.2(H) 80.0 - 100.0 fL 10/10/2024 6:14 AM EDT [facility] MCH 36.0(H) 27.0 - 33.0 pg 10/10/2024 6:14 AM EDT [facility] MCHC 35.5 32.0 - 36.0 g/dL 10/10/2024 6:14 AM EDT [facility] RDW 17.6(H) 11.0 - 15.0 % 10/10/2024 6:14 AM EDT [facility] Platelets 39(L) 140 - 400 10E3/uL 10/10/2024 6:14 AM EDT [facility] Comment: CNV Specimen checked for clots. None detected. MPV 9.8 7.5 - 11.5 fL 10/10/2024 6:14 AM EDT [facility] Whole Blood 10/10/2024 5:23 AM EDT 10/10/2024 5:51 AM EDT us Eileen Schroeder MD, PhD LAB BLOOD ORDERABLES Final Result Performing Organization Address City/[facility]/ZIP Co de Phone Number [facility] [address] * Vancomycin, random (10/10/2024 5:23 AM EDT) Vancomycin Random 16.4 ug/mL 10/10/2024 6:22 AM EDT [facility] Comment:Reference range not established for this test. Plasma 10/10/2024 5:23 AM EDT 10/10/2024 5:51 AM EDT us Jodi Ortiz PharmD LAB BLOOD ORDERABLES Final Result Performing Organization Address [facility]/ZIP Co de Phone Number [facility] [address] * ECHO STRESS W/ CONTRAST (10/09/2024 4:37 PM EDT) Anatomical Region Laterality Modality Chest Ultrasound 10/09/2024 2:40 PM EDT Narrative 10/09/2024 6:45 PM EDT * [facility]* [address] [place] [id number] Stress Echocardiogram Patient: Julien Gilbert Room: 8142 Height: 76in MR Number: [id number] : 1985 Weight: 262lb Account: [id number] Gender: M BP: 125 / 77 Study Date: 10/09/2024 Age: 39 BSA: 2.48m^2 Referring physician: Gerri Peterson Interpreting physician: Tonya Henriquez MD FELLOW Lisa Jha MD PERFORMING Tonya Henriquez MD TEMPLATE STORAGE CLERK [employer] ORDERING Gerri Peterson REFERRING Gerri [...] was augmented by the addition of hand canopy inspector and leg lifts. The infusion was terminated [...] at baseline or with provocation, shows no lsexb-xe-djpv atrial level shunt. - Pulmonary arteries: Systolic [...] at baseline or with provocation, shows no ffpsj-ix-brwc atrial level shunt. Pulmonary artery: - Systolic [...] at baseline or with provocation, shows no kvrkv-cv-mtkg atrial level shunt. Pericardium: - There is [...] peak heart rate and blood pressure was 25520pk Hg/min. Stress testing did not produce any [...] Reviewed and confirmed by Tonya Henriquez MD [id number] Procedure Note Tonya Henriquez MD - 10/09/2024 * [facility]* [address] [place] [address] Stress Echocardiogram Patient: Julien Gilbert Room: 8142 Height: 76in MR Number: [id number] : 1985 Weight: 262lb Account: [id number] Gender: M BP: 125 / 77 Study Date: 10/09/2024 Age: 39 BSA: 2.48m^2 Referring physician: Gerri Peterson Interpreting physician: Tonya Henriquez MD FELLOW Lisa Jha MD PERFORMING Tonya Henriquez MD TEMPLATE STORAGE CLERK [employer] ORDERING Gerri Peterson REFERRING Gerri Peterson ATTENDING Fouzia Rene ADMITTING Abdulhai, [place] Procedure:STRESS ECHO - PHARMACOLOGIC Order: Indications: Pre-Operative Clearance (Z01.818). PMH: EtOH Use Disorder. Risk factors: Hypertension. Dyslipidemia. Study data: Height: 76in. 193cm. Weight: 262lb. 118.8kg. The previousstudy was not available, so comparison was made to the report of 07/15/2024. Study status: Routine. Procedure: [facility] was recorded. [...] was augmented by the addition of hand canopy inspector and leg lifts. The infusion was terminated [...] at baseline or with provocation, shows no rtyxf-ag-efoz atrial level shunt. - Pulmonary arteries: Systolic [...] study at baseline or with provocation, showsno jzgzn-mw-hyrw atrial level shunt. Pulmonary artery: - Systolic [...] at baseline or with provocation, shows no qgzkr-hq-gzns atrial level shunt. Pericardium: - There is [...] heart rate). The maximal predicted heart rate [id number]. The target heart rate was 152bpm. The target heart rate was achieved.The heart rate response to stress is normal. There is a normal resting blood pressure with an appropriate response to stress. The rate-pressureproduct for the peak heart rate and blood pressure was 68973cm Hg/min. Stress testing did not produce any [...] Reviewed and confirmed by Tonya Henriquez MD [id number] us Gerri Peterson MD CV ECHO ORDERABLES Final Result * (ABNORMAL) Renal Function Panel w/EGFR, STAT (10/09/2024 1:05 PM EDT) Sodium 134 133 - 146 mmol/L 10/09/2024 2:10 PM EDT [facility] Potassium 3.7 3.5 - 5.3 mmol/L 10/09/2024 2:10 PM EDT [facility] Chloride 105 98 - 110 mmol/L 10/09/2024 2:10 PM EDT [facility] CO2 17(L) 21 - 33 mmol/L 10/09/2024 2:10 PM EDT [facility] Anion Gap 12 3 - 16 mmol/L 10/09/2024 2:10 PM EDT [facility] BUN 53(H) 7 - 25 mg/dL 10/09/2024 2:10 PM EDT [facility] Creatinine 2.89(H) 0.60 - 1.30 mg/dL 10/09/2024 2:10 PM EDT [facility] Glucose 108(H) 70 - 100 mg/dL 10/09/2024 2:10 PM EDT [facility] Calcium 9.3 8.6 - 10.3 mg/dL 10/09/2024 2:10 PM EDT [facility] Phosphorus 3.4 2.1 - 4.7 mg/dL 10/09/2024 2:10 PM EDT [facility] Albumin 3.6 3.5 - 5.7 g/dL 10/09/2024 2:10 PM EDT [facility] Osmolality, Calculated 293 278 - 305 mOsm/kg 10/09/2024 2:10 PM EDT [facility] EGFR 27 10/09/2024 2:10 PM EDT [facility] Comment:As of 2021, the estimated GFR [...] Final Result [facility] [address] * (ABNORMAL) Renal Function Panel w/EGFR, STAT (10/09/2024 8:14 AM EDT) Sodium 134 133 - 146 mmol/L 10/09/2024 8:47 AM EDT [facility] Potassium 3.4(L) 3.5 - 5.3 mmol/L 10/09/2024 8:47 AM EDT [facility] Chloride 107 98 - 110 mmol/L 10/09/2024 8:47 AM EDT [facility] CO2 17(L) 21 - 33 mmol/L 10/09/2024 8:47 AM EDT [facility] Anion Gap 10 3 - 16 mmol/L 10/09/2024 8:47 AM EDT [facility] BUN 54(H) 7 - 25 mg/dL 10/09/2024 8:47 AM EDT [facility] Creatinine 3.04(H) 0.60 - 1.30 mg/dL 10/09/2024 8:47 AM EDT [facility] Glucose 124(H) 70 - 100 mg/dL 10/09/2024 8:47 AM EDT [facility] Calcium 9.0 8.6 - 10.3 mg/dL 10/09/2024 8:47 AM EDT [facility] Phosphorus 3.5 2.1 - 4.7 mg/dL 10/09/2024 8:47 AM EDT [facility] Albumin 3.4(L) 3.5 - 5.7 g/dL 10/09/2024 8:47 AM EDT [facility] Osmolality, Calculated 294 278 - 305 mOsm/kg 10/09/2024 8:47 AM EDT [facility] EGFR 26 10/09/2024 8:47 AM EDT [facility] Comment:As of 2021, the estimated GFR [...] Resu lt [facility] [address] [id number], [facility] * Prepare RBC, leukoreduced, 1 Units (10/09/2024 6:16 AM EDT) Product Code F1311M89 [facility] Unit Number [id number] [facility] Dispense Status Presumed Transfused_PT [facility] Blood Expiration Date [id number] [facility] Coding System [id number] [facility] Blood Bank Product us Eileen Schroeder MD, PhD BLOOD BANK PRODUCT OR DERABLES Final Result [facility] * (ABNORMAL) Protime-INR (10/09/2024 4:59 AM EDT) Protime 26.5(H) 12.1 - 15.1 seconds 10/09/2024 6:30 AM EDT [facility] INR 2.4(H) 0.9 - 1.1 10/09/2024 6:30 AM EDT [facility] Comment: RECOMMENDED THERAPEUTIC RANGES USING INR : Stable oral anticoagulant therapy: 2.0 - 3.0 Mechanical prosthetic heart valve: 2.5 - 3.5 Recurrent acute myocardial infarction: 2.5 - 3.5 Plasma 10/09/2024 4:59 AM EDT 10/09/2024 5:55 AM EDT us Eileen Schroeder MD, PhD LAB BLOOD ORDERABLES Final Result Performing Organization Address [facility]/ZIP Co de Phone Number [facility] [address] * (ABNORMAL) Hepatic Function Panel (10/09/2024 4:59 AM EDT) Total Bilirubin 9.0(H) 0.0 - 1.5 mg/dL 10/09/2024 6:42 AM EDT [facility] Bilirubin, Direct 4.60(H) 0.00 - 0.40 mg/dL 10/09/2024 6:42 AM EDT [facility] AST 38 13 - 39 U/L 10/09/2024 6:42 AM EDT [facility] ALT 18 7 - 52 U/L 10/09/2024 6:42 AM EDT [facility] Alkaline Phosphatase 122 36 - 125 U/L 10/09/2024 6:42 AM EDT [facility] Total Protein 4.8(L) 6.4 - 8.9 g/dL 10/09/2024 6:42 AM EDT [facility] Albumin 3.4(L) 3.5 - 5.7 g/dL 10/09/2024 6:42 AM EDT [facility] Bilirubin, Indirect 4.40(H) 0.00 - 1.10 mg/dL 10/09/2024 6:42 AM EDT [facility] Plasma 10/09/2024 4:59 AM EDT 10/09/2024 5:57 AM EDT Eileen Schroeder MD, PhD LAB BLOOD ORDERABLES Final Result Performing Organization Address [facility] Co de Phone Number [facility] [address] [facility]. [address] * Magnesium (10/09/2024 4:59 AM EDT) Magnesium 1.8 1.5 - 2.5 mg/dL 10/09/2024 6:42 AM EDT [facility] Plasma 10/09/2024 4:59 AM EDT 10/09/2024 5:57 AM EDT Eileen Schroeder MD, PhD LAB BLOOD ORDERABLES Final Result Performing Organization Address [facility] de Phone Number [facility] [address] * (ABNORMAL) Renal Function Panel w/EGFR (10/09/2024 4:59 AM EDT) Sodium 134 133 - 146 mmol/L 10/09/2024 6:42 AM EDT [facility] Potassium 3.3(L) 3.5 - 5.3 mmol/L 10/09/2024 6:42 AM EDT [facility] Chloride 107 98 - 110 mmol/L 10/09/2024 6:42 AM EDT [facility] CO2 16(L) 21 - 33 mmol/L 10/09/2024 6:42 AM EDT [facility] Anion Gap 11 3 - 16 mmol/L 10/09/2024 6:42 AM EDT [facility] BUN 56(H) 7 - 25 mg/dL 10/09/2024 6:42 AM EDT [facility] Creatinine 2.98(H) 0.60 - 1.30 mg/dL 10/09/2024 6:42 AM EDT [facility] Glucose 112(H) 70 - 100 mg/dL 10/09/2024 6:42 AM EDT [facility] Calcium 9.0 8.6 - 10.3 mg/dL 10/09/2024 6:42 AM EDT [facility] Phosphorus 3.5 2.1 - 4.7 mg/dL 10/09/2024 6:42 AM EDT [facility] Albumin 3.4(L) 3.5 - 5.7 g/dL 10/09/2024 6:42 AM EDT [facility] Osmolality, Calculated 294 278 - 305 mOsm/kg 10/09/2024 6:42 AM EDT [facility] EGFR 26 10/09/2024 6:42 AM EDT [facility] Comment:As of 2021, the estimated GFR [...] Final Result [facility] [address] [place] [address], [facility] * (ABNORMAL) CBC (10/09/2024 4:59 AM EDT) Pathologist [facility] [place] WBC 4.6 3.8 - 10.8 10E3/uL 10/09/2024 6:21 AM EDT [facility] RBC 2.17(L) 4.20 - 5.80 10E6/uL 10/09/2024 6:21 AM EDT [facility] Hemoglobin 8.0(L) 13.2 - 17.1 g/dL 10/09/2024 6:21 AM EDT [facility] Hematocrit 21.8(L) 38.5 - 50.0 % 10/09/2024 6:21 AM EDT [facility] MCV 100.5(H) 80.0 - 100.0 fL 10/09/2024 6:21 AM EDT [facility] MCH 36.7(H) 27.0 - 33.0 pg 10/09/2024 6:21 AM EDT [facility] MCHC 36.5(H) 32.0 - 36.0 g/dL 10/09/2024 6:21 AM EDT [facility] RDW 18.1(H) 11.0 - 15.0 % 10/09/2024 6:21 AM EDT [facility] Platelets 36(L) 140 - 400 10E3/uL 10/09/2024 6:21 AM EDT [facility] Comment:Specimen checked for clots. None detected. MPV 8.3 7.5 - 11.5 fL 10/09/2024 6:21 AM EDT [facility] Whole Blood 10/09/2024 4:59 AM EDT 10/09/2024 5:56 AM EDT us Eileen Schroeder MD, PhD LAB BLOOD ORDERABLES Final Result [facility] [address] [place] [address], [facility] * Renal Tx Recipient (10/09/2024 4:59 AM EDT) Pathologist [facility] [place] Renal Transplant Recipient The request and specimen(s) for this test have been received and transported to the [facility] at [address] [place] [address]. The [facility] will report results directly to the client. 10/09/2024 7:26 AM EDT [facility] Blood 10/09/2024 4:59 AM EDT 10/09/2024 7:26 AM EDT us Aaron Gonzalez MD LAB BLOOD ORDERABLES Final Resu lt [facility] [address] * Vancomycin, random (10/09/2024 4:59 AM EDT) Vancomycin Random 11.0 ug/mL 10/09/2024 6:33 AM EDT [facility] Comment:Reference range not established for this test. Plasma 10/09/2024 4:59 AM EDT 10/09/2024 5:56 AM EDT us Jodi Ortiz PharmD LAB BLOOD ORDERABLES Final Result Performing Organization Address City/[facility]/ZIP Co de Phone Number [facility] [address] [facility]. [address] * (ABNORMAL) CBC (10/08/2024 5:52 PM EDT) WBC 5.6 3.8 - 10.8 10E3/uL 10/08/2024 6:52 PM EDT [facility] RBC 2.38(L) 4.20 - 5.80 10E6/uL 10/08/2024 6:52 PM EDT [facility] Hemoglobin 8.3(L) 13.2 - 17.1 g/dL 10/08/2024 6:52 PM EDT [facility] Hematocrit 24.6(L) 38.5 - 50.0 % 10/08/2024 6:52 PM EDT [facility] MCV 103.2(H) 80.0 - 100.0 fL 10/08/2024 6:52 PM EDT [facility] MCH 34.7(H) 27.0 - 33.0 pg 10/08/2024 6:52 PM EDT [facility] MCHC 33.6 32.0 - 36.0 g/dL 10/08/2024 6:52 PM EDT [facility] RDW 18.5(H) 11.0 - 15.0 % 10/08/2024 6:52 PM EDT [facility] Platelets 39(L) 140 - 400 10E3/uL 10/08/2024 6:52 PM EDT [facility] Comment:CNV MPV 8.1 7.5 - 11.5 fL 10/08/2024 6:52 PM EDT [facility] Whole Blood 10/08/2024 5:52 PM EDT 10/08/2024 6:45 PM EDT us Eileen Schroeder MD, PhD LAB BLOOD ORDERABLES Final Result Performing Organization Address [facility] Co de Phone Number [facility] [address] * Transfuse RBC Has consent been obtained? Yes; Transfusion Rate: Per dept routine (10/08/2024 1:17 PM EDT) Eileen Schroeder MD, PhD NURSING TREATMENT ORD ERABLES - BLOOD ADMIN Final Result Performing Organization Address City/[facility] Co de Phone Number EXTERNAL * Transfuse RBC Has consent been obtained? Yes; Transfusion Rate: Per dept routine, 1 Units (10/08/2024 1:17 PM EDT) Eileen Schroeder MD, PhD NURSING TREATMENT ORD ERABLES - BLOOD ADMIN Final Result Performing Organization Address City/[facility] Co de Phone Number EXTERNAL * (ABNORMAL) MMR(IgG) Panel (Measles, Mumps, Rubella) (10/08/2024 10:25 AM EDT) Mumps IgG Positive 10/08/2024 11:39 AM EDT [facility] MUMPS IGG NUM 99.00(H) 0.0 - 8.9 U/mL 10/08/2024 11:39 AM EDT [facility] Rubella IgG Scr Positive 10/08/2024 11:40 AM EDT [facility] RUB NUM 4.15(H) 0.00 - 0.89 INDEX 10/08/2024 11:40 AM EDT [facility] Rubeola Ab, IgG Positive 10/08/2024 11:39 AM EDT [facility] RUB IGG NUM 273.00(H) 0.00 - 13.40 U/mL 10/08/2024 11:39 AM EDT [facility] Serum 10/08/2024 10:2 5 AM EDT 10/08/2024 10:49 AM EDT Narrative [facility] - 10/08/2024 11:40 AM EDT Presence [...] ORDERABLES Final Resu lt Performing Organization Address [facility] Co de Phone Number [facility] [address] * (ABNORMAL) Hemoglobin A1C (10/08/2024 10:25 AM EDT) Hemoglobin A1C 3.7(L) 4.0 - 5.6 % 10/09/2024 1:22 PM EDT [facility] Comment: Hemoglobin A1c Interpretation Guidelines: Normal: [...] MD LAB BLOOD ORDERABLES Final Resu lt [facility] [address] [place] [id number], [facility] * (ABNORMAL) Vitamin D 25 Hydroxy (10/08/2024 10:25 AM EDT) Vit D, 25-Hydroxy 7.1(L) 30.0 - 100.0 ng/mL 10/08/2024 11:36 AM EDT [facility] Comment: Vitamin D deficiency has been defined by the [place] [employer] (IOM) and an Endocrine Society [...] MD LAB BLOOD ORDERABLES Final Resu lt [facility] [address] * Iron Studies (Iron + TIBC) (10/08/2024 10:25 AM EDT) Iron 81 50 - 212 ug/dL 10/08/2024 11:23 AM EDT [facility] % Iron Saturation SEE COMMENT 15.0 - 55.0 % 10/08/2024 11:23 AM EDT [facility] Comment:Unable to calculate result because contributing result outside reportable range.. TIBC SEE COMMENT 261 - 462 ug/dL 10/08/2024 11:23 AM EDT [facility] Comment:Unable to calculate result because contributing result outside reportable range.. Serum 10/08/2024 10:2 5 AM EDT 10/08/2024 10:49 AM EDT Gerri Peterson MD LAB BLOOD ORDERABLES Final Resu lt Performing Organization Address [facility] Co de Phone Number [facility] [address] [place] [address]. [address] * (ABNORMAL) Ferritin (10/08/2024 10:25 AM EDT) Ferritin 706.9(H) 23.9 - 336.2 ng/mL 10/08/2024 11:35 AM EDT [facility] Serum 10/08/2024 10:2 5 AM EDT 10/08/2024 10:49 AM EDT Gerri Peterson MD LAB BLOOD ORDERABLES Final Resu lt Performing Organization Address [facility] Co de Phone Number [facility] [address] [place] [address]. [address] * QuantiFERON TB2 Ag (10/08/2024 10:25 AM EDT) QuantiFERON TB2 Ag Value 0.07 10/10/2024 10:41 AM EDT [facility] [facility] Plasma 10/08/2024 10:2 5 AM EDT 10/08/2024 11:05 AM EDT Gerri Peterson MD LAB BLOOD ORDERABLES Final Resu lt Performing Organization Address City/[facility]/ZIP Co de Phone Number [facility] [address] [place] [address]. [address] * QuantiFERON TB1 Ag (10/08/2024 10:25 AM EDT) QuantiFERON TB1 Ag Value 0.06 10/10/2024 10:41 AM EDT [facility] Plasma 10/08/2024 10:2 5 AM EDT 10/08/2024 11:05 AM EDT Gerri Peterson MD LAB BLOOD ORDERABLES Final Resu lt [facility] [address] * QuantiFERON Nil (10/08/2024 10:25 AM EDT) QuantiFERON Nil 0.06 10:41 AM EDT [facility] Plasma 10/08/2024 10:2 5 AM EDT 10/08/2024 11:05 AM EDT Gerri Peterson MD LAB BLOOD ORDERABLES Final Resu lt Performing Organization Address [facility]/ZIP Co de Phone Number [facility] [address] [facility]. [address] * QuantiFERON Mitogen (10/08/2024 10:25 AM EDT) QuantiFERON Interpretation Negative Negative 10/10/2024 10:41 AM EDT [facility] Comment:Negative result geovanny cates M. tuberculosis [...] AM EDT [facility] Plasma 10/08/2024 10:2 5 AM EDT 10/08/2024 11:05 AM EDT Narrative [facility] - 10/10/2024 10:41 AM EDT The [...] ORDERABLES Final Resu lt Performing Organization Address [facility]/ZIP Co de Phone Number [facility] [address] [facility]. [address] * Reticulocyte Count, Auto (10/08/2024 7:41 AM EDT) Retic Ct Pct 1.35 0.50 - 2.00 % 10/08/2024 9:12 AM EDT [facility] Retic Ct Abs 26,190 25,000 - 90,000 /uL 10/08/2024 9:14 AM EDT [facility] Immature Retic Fract 0.37 0.09 - 0.56 10/08/2024 9:12 AM EDT [facility] Whole Blood 10/08/2024 7:41 AM EDT 10/08/2024 8:51 AM EDT us Angie Blanchard MD LAB BLOOD ORDERABLES Final Res ult Performing Organization Address [facility] Co de Phone Number [facility] [address] [facility]. [address] * (ABNORMAL) Haptoglobin (10/08/2024 7:41 AM EDT) Haptoglobin <30(L) 44 - 215 mg/dL 10/08/2024 8:53 AM EDT [facility] Serum 10/08/2024 7:41 AM EDT 10/08/2024 7:51 AM EDT Eileen Schroeder MD, PhD LAB BLOOD ORDERABLES Final Result Performing Organization Address [facility]/ZIP Co de Phone Number [facility] [address] [facility]. [address] * (ABNORMAL) CBC - Post Transfusion (10/08/2024 7:41 AM EDT) WBC 3.7(L) 3.8 - 10.8 10E3/uL 10/08/2024 8:34 AM EDT [facility] RBC 1.94(L) 4.20 - 5.80 10E6/uL 10/08/2024 8:34 AM EDT [facility] Hemoglobin 7.1(L) 13.2 - 17.1 g/dL 10/08/2024 8:34 AM EDT [facility] Hematocrit 20.0(L) 38.5 - 50.0 % 10/08/2024 8:34 AM EDT [facility] MCV 103.1(H) 80.0 - 100.0 fL 10/08/2024 8:34 AM EDT [facility] MCH 36.5(H) 27.0 - 33.0 pg 10/08/2024 8:34 AM EDT [facility] MCHC 35.4 32.0 - 36.0 g/dL 10/08/2024 8:34 AM EDT [facility] RDW 17.2(H) 11.0 - 15.0 % 10/08/2024 8:34 AM EDT [facility] Platelets 37(L) 140 - 400 10E3/uL 10/08/2024 8:34 AM EDT [facility] Comment: Specimen checked for clots. None detected. Slide Reviewed for PLT Clumps. None Seen. _Platelet Morphology Normal _Platelets Appear Decreased MPV 8.7 7.5 - 11.5 fL 10/08/2024 8:34 AM EDT [facility] Whole Blood 10/08/2024 7:41 AM EDT 10/08/2024 7:52 AM EDT Narrative [facility] - 10/08/2024 8:34 AM EDT Post-transfusion us Eileen Schroeder MD, PhD LAB BLOOD ORDERABLES Final Result [facility] [address] [place], [place] [id number] [place] [address] * Antibody Screen (10/08/2024 7:41 AM EDT) Antibody Screen Negative 10/08/2024 8:26 AM EDT [facility] Blood 10/08/2024 7:41 AM EDT 10/08/2024 7:57 AM EDT Narrative [facility] - 10/08/2024 8:32 AM EDT Testing performed by [facility] Transfusion Service Eileen Schroeder MD, PhD BLOOD BANK TEST ORDER PAL Final Result [facility] [address] * ABO/Rh (10/08/2024 7:41 AM EDT) ABO Grouping O 10/08/2024 8:14 AM EDT [facility] Rh Type Positive 10/08/2024 8:14 AM EDT [facility] Blood 10/08/2024 7:41 AM EDT 10/08/2024 7:57 AM EDT Eileen Schroeder MD, PhD BLOOD BANK TEST ORDER PAL Final Result Performing Organization Address [facility]/ZIP Co de Phone Number [facility] [address] * (ABNORMAL) Lactate dehydrogenase (10/08/2024 5:36 AM EDT) LD 102(L) 110 - 270 U/L 10/08/2024 8:20 AM EDT [facility] Plasma 10/08/2024 5:36 AM EDT 10/08/2024 7:58 AM EDT us Angie Blanchard MD LAB BLOOD ORDERABLES Final Res ult [facility] [address] [facility]. [address] * (ABNORMAL) Protime-INR (10/08/2024 5:36 AM EDT) Protime 26.9(H) 12.1 - 15.1 seconds 10/08/2024 6:11 AM EDT [facility] INR 2.4(H) 0.9 - 1.1 10/08/2024 6:11 AM EDT [facility] Comment: RECOMMENDED THERAPEUTIC RANGES USING INR : Stable oral anticoagulant therapy: 2.0 - 3.0 Mechanical prosthetic heart valve: 2.5 - 3.5 Recurrent acute myocardial infarction: 2.5 - 3.5 Plasma 10/08/2024 5:36 AM EDT 10/08/2024 5:52 AM EDT us Eileen Schroeder MD, PhD LAB BLOOD ORDERABLES Final Result [facility] [address] [place] [address], [facility] * (ABNORMAL) Hepatic Function Panel (10/08/2024 5:36 AM EDT) Total Bilirubin 7.7(H) 0.0 - 1.5 mg/dL 10/08/2024 6:25 AM EDT [facility] Bilirubin, Direct 4.28(H) 0.00 - 0.40 mg/dL 10/08/2024 6:25 AM EDT [facility] AST 34 13 - 39 U/L 10/08/2024 6:25 AM EDT [facility] ALT 16 7 - 52 U/L 10/08/2024 6:25 AM EDT [facility] Alkaline Phosphatase 103 36 - 125 U/L 10/08/2024 6:25 AM EDT [facility] Total Protein 4.7(L) 6.4 - 8.9 g/dL 10/08/2024 6:25 AM EDT [facility] Albumin 3.5 3.5 - 5.7 g/dL 10/08/2024 6:25 AM EDT [facility] Bilirubin, Indirect 3.42(H) 0.00 - 1.10 mg/dL 10/08/2024 6:25 AM EDT [facility] Plasma 10/08/2024 5:36 AM EDT 10/08/2024 5:52 AM EDT Eileen Schroeder MD, PhD LAB BLOOD ORDERABLES Final Result [facility] [address] [facility]. [address] * Magnesium (10/08/2024 5:36 AM EDT) Magnesium 1.9 1.5 - 2.5 mg/dL 10/08/2024 6:25 AM EDT [facility] Plasma 10/08/2024 5:36 AM EDT 10/08/2024 5:52 AM EDT Eileen Schroeder MD, PhD LAB BLOOD ORDERABLES Final Result Performing Organization Address [facility]/ZIP Co de Phone Number [facility] [address] * (ABNORMAL) Renal Function Panel w/EGFR (10/08/2024 5:36 AM EDT) Sodium 135 133 - 146 mmol/L 10/08/2024 6:25 AM EDT [facility] Potassium 3.2(L) 3.5 - 5.3 mmol/L 10/08/2024 6:25 AM EDT [facility] Chloride 106 98 - 110 mmol/L 10/08/2024 6:25 AM EDT [facility] CO2 17(L) 21 - 33 mmol/L 10/08/2024 6:25 AM EDT [facility] Anion Gap 12 3 - 16 mmol/L 10/08/2024 6:25 AM EDT [facility] BUN 61(H) 7 - 25 mg/dL 10/08/2024 6:25 AM EDT [facility] Creatinine 3.10(H) 0.60 - 1.30 mg/dL 10/08/2024 6:25 AM EDT [facility] Glucose 106(H) 70 - 100 mg/dL 10/08/2024 6:25 AM EDT [facility] Calcium 9.0 8.6 - 10.3 mg/dL 10/08/2024 6:25 AM EDT [facility] Phosphorus 4.0 2.1 - 4.7 mg/dL 10/08/2024 6:25 AM EDT [facility] Albumin 3.5 3.5 - 5.7 g/dL 10/08/2024 6:25 AM EDT [facility] Osmolality, Calculated 298 278 - 305 mOsm/kg 10/08/2024 6:25 AM EDT [facility] EGFR 25 10/08/2024 6:25 AM EDT [facility] Comment:As of 2021, the estimated GFR [...] AM EDT 10/08/2024 5:52 AM EDT us iEleen Schroeder MD, PhD LAB BLOOD ORDERABLES Final Result [facility] [address] * (ABNORMAL) CBC (10/08/2024 5:36 AM EDT) WBC 3.2(L) 3.8 - 10.8 10E3/uL 10/08/2024 6:41 AM EDT [facility] RBC 1.86(L) 4.20 - 5.80 10E6/uL 10/08/2024 6:41 AM EDT [facility] Hemoglobin 6.9(L) 13.2 - 17.1 g/dL 10/08/2024 6:41 AM EDT [facility] Hematocrit 18.9(L) 38.5 - 50.0 % 10/08/2024 6:41 AM EDT [facility] MCV 101.6(H) 80.0 - 100.0 fL 10/08/2024 6:41 AM EDT [facility] MCH 36.9(H) 27.0 - 33.0 pg 10/08/2024 6:41 AM EDT [facility] MCHC 36.3(H) 32.0 - 36.0 g/dL 10/08/2024 6:41 AM EDT [facility] RDW 17.0(H) 11.0 - 15.0 % 10/08/2024 6:41 AM EDT [facility] Platelets 34(L) 140 - 400 10E3/uL 10/08/2024 6:41 AM EDT [facility] Comment: Specimen checked for clots. None detected. Slide Reviewed for PLT Clumps. None Seen. Platelet Estimate Decreased 10/08/2024 6:41 AM EDT [facility] MPV 8.4 7.5 - 11.5 fL 10/08/2024 6:41 AM EDT [facility] Whole Blood 10/08/2024 5:36 AM EDT 10/08/2024 5:53 AM EDT Narrative [facility] - 10/08/2024 6:41 AM EDT Peripheral blood smear was scanned per review criteria approved by the laboratory medical technical writer. us Eileen Schroeder MD, PhD LAB BLOOD ORDERABLES Final Result [facility] [address] * Vancomycin, random (10/08/2024 5:36 AM EDT) Vancomycin Random 16.0 ug/mL 10/08/2024 6:20 AM EDT [facility] Comment:Reference range not established for this test. Plasma 10/08/2024 5:36 AM EDT 10/08/2024 5:52 AM EDT us Jodi FreireD LAB BLOOD ORDERABLES Final Result [facility] [address] * Urine Drug Confirmation (10/07/2024 10:50 PM EDT) BARBITURATES NOT PRESENT 10/09/2024 1:33 PM EDT [facility] BENZODIAZEPINES PRESENT 1:33 PM EDT [facility] Nordiazepam 3 ng/mL 10/09/2024 1:33 PM EDT [facility] Temazepam 6 ng/mL 10/09/2024 1:33 PM EDT [facility] CANNABINOIDS NOT PRESENT 10/09/2024 1:33 PM EDT [facility] PIPE STEM SAWYER STIMULANTS NOT PRESENT 1:33 PM EDT [facility] OPIOID ANALGESICS PRESENT 025 1:33 PM EDT [facility] Oxycodone 300 ng/mL 10/09/2024 1:33 PM EDT [facility] Oxymorphone 32 ng/mL 10/09/2024 1:33 PM EDT [facility] Tramadol >1000 ng/mL 10/09/2024 1:33 PM EDT [facility] OPIOID ANTAGONISTS NOT PRESENT 10/09 1:33 PM EDT [facility] SEDATIVES/MUSCLE RELAXANTS NOT PRESENT 10/09/2024 1:33 PM EDT [facility] TRICYCLIC ANTIDEPRESSANTS NOT PRESENT 10/09/2024 1:33 PM EDT [facility] Urine 10/07/2024 10:5 0 PM EDT 10/08/2024 3:00 AM EDT Gerri Peterson MD URINE ORDERABLES Final Result [facility] [address] * Giardia Cryptosporidium Antigens (10/07/2024 10:50 PM EDT) Cryptosporidium Ag Negative Negative 2024 7:59 AM EDT [facility] Giardia Ag Negative Negative 10/08/2024 7:59 AM EDT [facility] Comment: Detection of Giardia and Cryptosporidium antigen is more sensitive and specific than microscopy. Because antigens are shed continuously, repeat testing is rarely warranted. Feces 10/07/2024 10:5 0 PM EDT 10/08/2024 1:53 AM EDT Comment:F Bisi Hernandez DO MICROBIOLOGY - GENERAL ORDERABLE S Final Result [facility] [address] [place] [address], [facility] * (ABNORMAL) Urine Drug Screen Reflex to Confirmation (10/07/2024 10:50 PM EDT) Amphetamine, 500 ng/mL Cutoff Negative Negative 10/08/2024 3:00 AM EDT [facility] Barbiturates UR, 300 ng/mL Cutoff Negative Negative 10/08/2024 3:00 AM EDT [facility] Buprenorphine, 5 ng/mL Cutoff Negative Negative 10/08/2024 3:00 AM EDT [facility] Benzodiazepines UR, 300 ng/mL Cutoff Negative Negative 10/08/2024 3:00 AM EDT [facility] Cocaine UR, 300 ng/mL Cutoff Negative Negative 10/08/2024 3:00 AM EDT [facility] Methadone, UR, 300 ng/mL Cutoff Negative Negative 10/08/2024 3:00 AM EDT [facility] Opiates UR, 300 ng/mL Cutoff Negative Negative 10/08/2024 3:00 AM EDT [facility] Oxycodone, 100 ng/mL Cutoff Presumptive Positive(A) Negative 10/08/2024 3:00 AM EDT [facility] Tricyclic Antidepressants, 300 ng/mL Cutoff Negative Negative 10/08/2024 3:00 AM EDT [facility] Comment:This test has been d eveloped and its performance characteristics determined by [facility] which is certified under [...] 10/08/2024 3:00 AM EDT [facility] Comment:This is a screening method only and may be associated with false positive and/or false negative results. Results are not definitive without additional confirmatory testing by mass spectrometry. Fentanyl, 2 ng/mL Cutoff Negative Negative 10/08/2024 3:00 AM EDT [facility] Comment:This test has been d eveloped and its performance characteristics determined by [facility] which is certified under [...] EDT Narrative [facility] - 10/08/2024 3:00 AM EDT CONFIRMATION TO FOLLOW Gerri Peterson MD URINE ORDERABLES Final Result [facility] [address] * Comprehensive Drug Screen (10/07/2024 10:50 PM EDT) Creatinine, Ur CANCELED mg/dL 10/08/2024 7:09 AM EDT [facility] Comment:The released value 8 7.30 was canceled by YAQUELIN on 10/08/2024 07:09 BARBITURATES CANCELED [facility] Butalbital CANCELED [facility] Phenobarbital [facility] Secobarbital CANCELED [facility] BENZODIAZEPINES CANCELED [facility] Alprazolam CANCELED [facility] Clonazepam CANCELED [facility] Diazepam CANCELED [facility] Alpha-Hydroxyalprazo mcknight CANCELED [facility] Lorazepam CANCELED [facility] Midazolam CANCELED [facility] Nordiazepam [facility]ELED [facility] Oxazepam CANCELED [facility] Temazepam CANCELED [facility] CANNABINOIDS CANCELED [facility] THC-COOH CANCELED [facility] PIPE STEM SAWYER STIMULANTS [facility]ED [facility] Cocaine Metabolite(benzoylec gonine) CANCELED [facility] Amphetamine CANCELED [facility] Methamphetamine [facility]ED [facility] MDA CANCELED [facility] MDEA CANCELED [facility] Phencyclindine (PCP) CANCELED [facility] OPIOID ANALGESICS CANCELED [facility] Heroin Metabolite(6-RAMONA) CANCELED [facility] Codeine CANCELED [facility] Morphine CANCELED [facility] Hydrocodone CANCELED [facility] Hydromorphone CANCELED [facility] Oxycodone CANCELED [facility] Oxymorphone CANCELED [facility] Meperidine CANCELED [facility] Normeperidine CANCELED [facility] Methadone CANCELED [facility] Methadone Metabolite (EDDP) CANCELED [facility] Tramadol CANCELED [facility] Fentanyl CANCELED [facility] Norfentanyl CANCELED [facility] Sufentanil CANCELED [facility] OPIOID ANTAGONISTS CANCELED [facility] Buprenorphine CANCELED [facility] Norbuprenorphine CANCELED [facility] Naltrexone CANCELED [facility] Naloxone CANCELED [facility] SEDATIVES/MUSCLE RELAXANTS CANCELED [facility] Carisoprodol CANCELED [facility] Meprobamate CANCELED [facility] TRICYCLIC ANTIDEPRESSANTS CANCELED [facility] Amitriptyline CANCELED [facility] Clomipramine CANCELED [facility] Desipramine CANCELED [facility] Doxepin CANCELED [facility] Imipramine CANCELED [facility] Nortriptyline CANCELED [facility] Urine Creatinine CANCELED mg/dL [facility] Nitrite CANCELED [facility] Glutaraldehyde CANCELED [facility] pH CANCELED 10/08/2024 7:09 AM EDT [facility] Comment:The released value 5 .6 was canceled by YAQUELIN on 10/08/2024 07:09 Specific [place] CANCELED 10/09/19 7:09 AM EDT [facility] Comment:The released value 1 .009 was canceled by YAQUELIN on 10/08/2024 07:09 Bleach CANCELED [facility] Pyridinium Chlorochromate CANCELED [facility] Urine 10/07/2024 10:5 0 PM EDT 10/08/2024 2:07 AM EDT Narrative [facility] - 10/08/2024 7:09 AM EDT See accn [id number] Gerri Peterson MD URINE ORDERABLES Edited Result - Final Performing Organization Address [facility] Co de Phone Number [facility] [address] [place] [address] * Ova and Parasite Comprehensive w/ Giardia/Crypto (10/07/2024 10:50 PM EDT) Pathologist [facility] [place] O & P Method: Concentration and Trichrome Stain [facility] Results No Amoeba, Ova, Or Parasites Seen. -- O and P examination of additional specimens is recommended only for symptomatic patients, immunosuppressed patients or those with an appropriate travel history. [facility] Feces FECES / Unknown 10/07/2024 1 0:50 PM EDT 10/08/2024 1:53 AM EDT Comment:F Bisi Hernandez DO MICROBIOLOGY - GENERAL ORDERABLE S Final Result Performing Organization Address [facility] de Phone Number [facility] [address] [place] [address] * Enteric Pathogen Panel (10/07/2024 10:50 PM EDT) Campylobacter Group (C. ecoli, C. jejuni, C. trino) Not Detected Not Detected 10/08/2024 4:40 AM EDT [facility] Salmonella species Not Detected Not Detected 10/08/2024 4:40 AM EDT [facility] Shigella species Not Detected Not Detected 10/08/2024 4:40 AM EDT [facility] Vibrio Group (Vibrio cholerae, Vibrio parahaemolyticus) Not Detected Not Detected 10/08/2024 4:40 AM EDT [facility] Yersinia enterocolitica Not Detected Not Detected 10/08/2024 4:40 AM EDT [facility] Shiga toxin 1 Not Detected Not Detected 10/08/2024 4:40 AM EDT [facility] Shiga toxin 2 Not Detected Not Detected 10/08/2024 4:40 AM EDT [facility] Norovirus Not Detected Not Detected 10/08/2024 4:40 AM EDT [facility] Rotavirus Not Detected Not Detected 10/08/2024 4:40 AM EDT [facility] [facility] Comment: The Enteric Pathogen Panel is [...] ORDERABLE S Final Result Performing Organization Address [facility] Co de Phone Number [facility] [address] [facility]. [address] * Hepatitis C Antibody (10/07/2024 6:38 PM EDT) HCV Ab Nonreactive Nonreactive 10/07/2024 7:56 PM EDT [facility] Comment:Health Department no tified in accordance with reportable infectious disease guidelines. Serum 10/07/2024 6:38 PM EDT 10/07/2024 6:52 PM EDT Narrative [facility] - 10/07/2024 7:56 PM EDT Antibodies to HCV not detected; does not exclude the possibility of exposure to HCV. Gerri Peterson MD LAB BLOOD ORDERABLES Final Resu lt [facility] [address] * Hepatitis B Surface Antibody, Quantitati (10/07/2024 6:38 PM EDT) Hep B S Ab Nonreactive Nonreactive 10/07/2024 8:00 PM EDT [facility] HBSAB NUMBER 7.88 0.00 - 7.99 mIU/mL 10/07/2024 8:00 PM EDT [facility] Serum 10/07/2024 6:38 PM EDT 10/07/2024 6:52 PM EDT Replaced by [facility] - 10/07/2024 8:00 PM EDT Individual is considered not immune to HBV infection. Gerri Peterson MD LAB BLOOD ORDERABLES Final Resu lt Performing Organization Address [facility] Co de Phone Number [facility] [address] [facility]. [address] * Hepatitis B surface antigen (10/07/2024 6:38 PM EDT) Hep B Surface Ag Nonreactive Nonreactive 10/07/2024 7:51 PM EDT [facility] Comment:Health Department no tified in accordance with reportable infectious disease guidelines. Serum 10/07/2024 6:38 PM EDT 10/07/2024 6:52 PM EDT Replaced by [facility] - 10/07/2024 7:51 PM EDT Specimen is considered negative for HBsAg. Gerri Peterson MD LAB BLOOD ORDERABLES Final Resu lt Performing Organization Address [facility]/ZIP Co de Phone Number [facility] [address] [facility]. [address] * Hepatitis A Antibody Total (10/07/2024 6:38 PM EDT) Anti-HAV Total (IgG + IgM) Nonreactive 10/07/2024 7:53 PM EDT [facility] Serum 10/07/2024 6:38 PM EDT 10/07/2024 6:52 PM EDT Replaced by [facility] - 10/07/2024 7:53 PM EDT HAV antibodies not detected Gerri Peterson MD LAB BLOOD ORDERABLES Final Resu lt Performing Organization Address City/[facility]/ZIP Co de Phone Number [facility] [address] [facility]. [address] * Hepatitis A IgM (10/07/2024 6:38 PM EDT) Hep A IgM Nonreactive Nonreactive 10/07/2024 7:46 PM EDT [facility] Serum 10/07/2024 6:38 PM EDT 10/07/2024 6:52 PM EDT Narrative [facility] - 10/07/2024 7:46 PM EDT IgM anti-HAV not detected. Does not exclude the possibility of exposure to or infection with HAV. Levels of IgM anti-HAV may be below the cut-off in early infection. Gerri Peterson MD LAB BLOOD ORDERABLES Final Resu lt Performing Organization Address [facility] Co de Phone Number [facility] [address] [facility]. [address] * (ABNORMAL) Lipid Profile (10/07/2024 6:37 PM EDT) Non-HDL Cholesterol, Calculated See Note 0 - 129 mg/dL 10/07/2024 7:42 PM EDT [facility] Comment: Desirable: < 130 mg/dL Above Desirable: 130-159 mg/dL Borderline High: 160-189 mg/dL High: 190-219 mg/dL Very High: > 219 mg/dL Unable to calculate result either because contributing result(s) are outside of reportable range or are not available. Cholesterol, Total <25 0 - 200 mg/dL 10/07/2024 7:42 PM EDT [facility] Triglycerides 30 10 - 149 mg/dL 10/07/2024 7:42 PM EDT [facility] HDL 4(L) 60 - 92 mg/dL 10/07/2024 7:42 PM EDT [facility] Comment: LIPID PROFILE INTERPRETATION CHOLESTEROL,TOTAL(mg/dL) DESIRABLE: [...] Cholesterol See Note mg/dL 7:42 PM EDT [facility] Comment:Unable to calculate result either because contributing result(s) are outside of reportable range or are not available. Plasma 10/07/2024 6:37 PM EDT 10/07/2024 7:06 PM EDT Narrative [facility]ALTH [facility] - 10/07/2024 7:42 PM EDT LDL cholesterol calculated using the Friedewald equation. us Gerri Peterson MD LAB BLOOD ORDERABLES Final Resu lt [facility] [address] [id number], [facility] * (ABNORMAL) Alpha 1 Antitrypsin AAT Quant & Mutation (10/07/2024 6:37 PM EDT) A-1 Antitrypsin 99(L) 101 - 187 mg/dL 10/09/2024 4:28 AM EDT [facility] A-1 Antitrypsin Pheno Comment 10/10/2024 4:05 PM EDT [facility] Comment: A1A Phenotype is consistent with a heterozygous phenotype consisting of one M (normal) allele and one allele that cannot be identified at this time. The unknown allele is not consistent with Z (deficient), S (deficient), or F (deficient). MM Phenotype is considered to be normal , producing normal serum levels of [id number] inhibitor and not associated with clinical disease. [...] PM EDT 10/10/2024 4:08 PM EDT Narrative [facility] - 10/10/2024 4:08 PM EDT PERFORMED AT: [facility] [address] [id number] TECHNICAL APPLICATIONS SCIENTIST: Bassam Khalil, PhD PHONE: [phone] PERFORMED AT: [facility] [address] [id number] TECHNICAL APPLICATIONS SCIENTIST: Mandy Abdul MD PHONE: [phone] Gerri Peterson MD LAB BLOOD ORDERABLES Final Resu lt [facility] [address] * (ABNORMAL) CMV IgG Antibody (10/07/2024 6:37 PM EDT) CMV IgG Positive(A ) Negative 10/07/2024 8:26 PM EDT [facility] CMV IGG NUM 8.40(H) 0.00 - 0.59 U/mL 10/07/2024 8:26 PM EDT [facility] Serum 10/07/2024 6:37 PM EDT 10/07/2024 6:50 PM EDT Gerri Peterson MD LAB BLOOD ORDERABLES Final Resu lt [facility] [address] [facility]. [address] * HIV-1 and HIV-2 Antibodies w Reflex (10/07/2024 6:37 PM EDT) HIV 1+2 AB/AGN Nonreactive Nonreactive 10/07/2024 7:54 PM EDT [facility] Serum 10/07/2024 6:37 PM EDT 10/07/2024 7:06 PM EDT Narrative [facility]ALTH [facility] - 10/07/2024 7:54 PM EDT \HIVRNR Gerri Peterson MD LAB BLOOD ORDERABLES Final Resu lt Performing Organization Address City/[facility]/ZIP Co de Phone Number [facility] [address] [facility]. [address] * TSH (Thyroid Stimulating Hormone) (10/07/2024 6:37 PM EDT) Pathologist [facility] [place] TSH 0.81 0.45 - 4.12 uIU/mL 10/07/2024 8:17 PM EDT [facility] Serum 10/07/2024 6:37 PM EDT 10/07/2024 6:50 PM EDT Gerri Peterson MD LAB BLOOD ORDERABLES Final Resu lt [facility] [address] [facility]. [address] * Katie-Watkins virus early antigen antibody, IgG (10/07/2024 6:37 PM EDT) EBV Early Antigen Ab, IgG <9.0 0.0 - 8.9 U/mL 10/09/2024 2:16 PM EDT [facility] Comment: Negative < 9.0 Equivocal 9.0 - 10.9 Positive >10.9 Serum Frozen 10/07/2024 6:37 PM EDT 10/09/2024 3:07 PM EDT Narrative [facility] - 10/09/2024 3:07 PM EDT PERFORMED AT: [address] [id number] TECHNICAL APPLICATIONS SCIENTIST: Bassam Khalil, PhD PHONE: [phone] Gerri Peterson MD LAB BLOOD ORDERABLES Final Resu lt Performing Organization Address [facility] Co de Phone Number [facility] [address] [place] [address] * (ABNORMAL) Varicella zoster antibody, IgG (10/07/2024 6:37 PM EDT) Varicella IgG Positive( A) Negative S/CO 10/07/2024 8:34 PM EDT [facility] Comment:Result indicates the presence of detectable [...] PM EDT [facility] Serum 10/07/2024 6:37 PM EDT 10/07/2024 6:50 PM EDT Gerri Peterson MD LAB BLOOD ORDERABLES Final Resu lt Performing Organization Address [facility] Co de Phone Number [facility] [address] [place] [address] * Toxoplasma gondii antibody, IgG (10/07/2024 6:37 PM EDT) Toxoplasma Gondii IgG <3.0 0.0 - 7.1 IU/mL 10/09/2024 7:53 AM EDT [facility] Comment: Negative <7.2 Equivocal 7.2 - 8.7 Positive >8.7 Serum 10/07/2024 6:37 PM EDT 10/09/2024 8:07 AM EDT Narrative [facility] - 10/09/2024 8:07 AM EDT PERFORMED AT: [facility] [address] [id number] TECHNICAL APPLICATIONS SCIENTIST: Bassam Khalil, PhD PHONE: [phone] Gerri Peterson MD LAB BLOOD ORDERABLES Final Resu lt [facility] [address] [facility]. [address] * Syphilis Screening (Trepia) (10/07/2024 6:37 PM EDT) Treponema Pallidum Negative Negative 10/07/2024 8:27 PM EDT [facility] Comment: No serological evidence of infection with Treponema pallidum (incubating or early primary syphilis cannot be excluded). Serum 10/07/2024 6:37 PM EDT 10/07/2024 6:50 PM EDT us Gerri Peterson MD LAB BLOOD ORDERABLES Final Resu lt Performing Organization Address City/[facility]/ZIP Co de Phone Number [facility] [address] [facility]. [address] * Strongyloides Ab (10/07/2024 6:37 PM EDT) Strongyloides Ab Negative Negative 10/11/19 11:51 AM EDT [facility] Serum 10/07/2024 6:37 PM EDT 10/10/2024 12:07 PM EDT Narrative [facility] - 10/10/2024 12:07 PM EDT PERFORMED AT: [facility] [address] [id number] TECHNICAL APPLICATIONS SCIENTIST: Mandy Abdul MD PHONE: [phone] Gerri Peterson MD LAB BLOOD ORDERABLES Final Resu lt [facility] [address] [facility]. [address] * Phosphatidylethanol Confirmation, B (10/07/2024 6:37 PM EDT) PETH 16:0/18.1 (POPETH) <10 Cutoff: 10 ng/mL 10/10/2024 10:42 AM EDT [facility] Comment: Phosphatidylethanol (PEth) homologues result interpretation [...] AM EDT [facility] Comment: PEth 16:0/18:2 (PLPEth) Reference ranges are not well established PEth Interpretation Negative. 10/10 10:42 AM EDT [facility] Comment: ADDITIONAL INFORMATION This report is intended for use in clinical monitoring and management of patients. It is not intended for use in employment-related testing. This test was developed and its performance characteristics determined by [facility] in a manner consistent with CLIA requirements. This test has not been cleared or approved by the [place].S. Food and Drug Administration. Test Performed by: [facility] [id number] [place] [address] Medical Imaging Technician: Kathy Ortiz Ph.D.; CLIA# [id number] Whole Blood 10/07/2024 6:37 PM EDT 10/10/2024 10:42 AM EDT us Gerri Peterson MD LAB BLOOD ORDERABLES Final Resu lt [facility] [address] [place] [address], [facility] * (ABNORMAL) MMR(IgG) Panel (Measles, Mumps, Rubella) (10/07/2024 6:37 PM EDT) Mumps IgG Positive 10/07/2024 8:26 PM EDT [facility] MUMPS IGG NUM 77.80(H) 0.0 - 8.9 U/mL 10/07/2024 8:26 PM EDT [facility] Rubella IgG Scr Positive 10/07/2024 8:28 PM EDT [facility] RUB NUM 3.04(H) 0.00 - 0.89 INDEX 10/07/2024 8:28 PM EDT [facility] Rubeola Ab, IgG Positive 10/07/2024 8:26 PM EDT [facility] RUB IGG NUM 192.00(H) 0.00 - 13.40 U/mL 10/07/2024 8:26 PM EDT [facility] Serum 10/07/2024 6:37 PM EDT 10/07/2024 6:50 PM EDT Narrative [facility] - 10/07/2024 8:28 PM EDT Presence [...] Resu lt [facility] [address] [place] [address], [facility] * IgA (10/07/2024 6:37 PM EDT) IgA 227.0 70.0 - 400.0 mg/dL 10/08/2024 11:07 AM EDT [facility] Comment:Please interpret the se findings in conjunction with clinical findings, protein electrophoresis, and immunotyping/immunofixation results. Serum 10/07/2024 6:37 PM EDT 10/07/2024 6:50 PM EDT Gerri Peterson MD LAB BLOOD ORDERABLES Final Resu lt Performing Organization Address City/[facility]/ZIP Co de Phone Number [facility] [address] * Ethanol, Serum (10/07/2024 6:37 PM EDT) Ethanol <10 0 - 10 mg/dL 10/07/2024 8:36 PM EDT [facility] Serum 10/07/2024 6:37 PM EDT 10/07/2024 6:50 PM EDT Gerri Peterson MD LAB BLOOD ORDERABLES Final Resu lt Performing Organization Address [facility] Co de Phone Number [facility] [address] [facility] * ABO/Rh - Second (10/07/2024 6:37 PM EDT) ABO Grouping O 10/07/2024 7:16 PM EDT [facility] Rh Type Positive 10/07/2024 7:16 PM EDT [facility] Blood 10/07/2024 6:37 PM EDT 10/07/2024 6:56 PM EDT Narrative [facility] - 10/07/2024 7:18 PM EDT This is not a duplicate order. It is required that ABO be drawn twice for LIVER TRANSPLANT Gerri Peterson MD BLOOD BANK TEST ORDERABLES Denisse l Result [facility] [address] * ABO/Rh- Initial (10/07/2024 6:37 PM EDT) ABO Grouping O 10/07/2024 7:59 PM EDT [facility] Rh Type Positive 10/07/2024 7:59 PM EDT [facility] Blood 10/07/2024 6:37 PM EDT 10/07/2024 7:25 PM EDT Gerri Peterson MD BLOOD BANK TEST ORDERABLES Denisse l Result [facility] [address] [place] [address], [facility] * X-ray Mandible minimum 4-views (10/07/2024 6:19 [...] EXAM: US ABDOMEN COMPLETE EXAM: US DUPLEX [id number] COMPLETE INDICATION: elevated bilirubin COMPARISON: Ultrasound and [...] EXAM: US ABDOMEN COMPLETE EXAM: US DUPLEX [id number] COMPLETE INDICATION: elevated bilirubin COMPARISON: Ultrasound and [...] PM EDT us Bisi Hernandez DO [facility] [place] ORDERABLES Final Result * US Duplex [id number] Comp (10/07/2024 3:48 PM EDT) Anatomical Region [...] EXAM: US ABDOMEN COMPLETE EXAM: US DUPLEX [id number] COMPLETE INDICATION: elevated bilirubin COMPARISON: Ultrasound and [...] EXAM: US ABDOMEN COMPLETE EXAM: US DUPLEX [id number] COMPLETE INDICATION: elevated bilirubin COMPARISON: Ultrasound and [...] * (ABNORMAL) Protime-INR (10/07/2024 6:00 AM EDT) Pathologist [facility] [place] Protime 26.9(H) 12.1 - 15.1 seconds 10/07/2024 [...] Final Result [facility] [address] * (ABNORMAL) Hepatic Function Panel (10/07/2024 6:00 AM EDT) Total Bilirubin 9.7(H) 0.0 - 1.5 mg/dL 10/07/2024 7:10 AM EDT [facility] Bilirubin, Direct 5.21(H) 0.00 - 0.40 mg/dL 10/07/2024 7:10 AM EDT [facility] AST 39 13 - 39 U/L 10/07/2024 7:10 AM EDT [facility] ALT 18 7 - 52 U/L 10/07/2024 7:10 AM EDT [facility] Alkaline Phosphatase 98 36 - 125 U/L 10/07/2024 7:10 AM EDT [facility] Total Protein 4.8(L) 6.4 - 8.9 g/dL 10/07/2024 7:10 AM EDT [facility] Albumin 3.6 3.5 - 5.7 g/dL 10/07/2024 7:10 AM EDT [facility] Bilirubin, Indirect 4.49(H) 0.00 - 1.10 mg/dL 10/07/2024 7:10 AM EDT [facility] Plasma 10/07/2024 6:00 AM EDT 10/07/2024 6:39 AM EDT Eileen Schroeder MD, PhD LAB BLOOD ORDERABLES Final Result Performing Organization Address City/[facility]/ZIP Co de Phone Number [facility] [address] * Magnesium (10/07/2024 6:00 AM EDT) Magnesium 1.7 1.5 - 2.5 mg/dL 10/07/2024 7:10 AM EDT [facility] Plasma 10/07/2024 6:00 AM EDT 10/07/2024 6:39 AM EDT Eileen Schroeder MD, PhD LAB BLOOD ORDERABLES Final Result Performing Organization Address [facility] Co de Phone Number [facility] [address] * (ABNORMAL) Renal Function Panel w/EGFR (10/07/2024 6:00 AM EDT) Sodium 132(L) 133 - 146 mmol/L 10/07/2024 7:10 AM EDT [facility] Potassium 3.9 3.5 - 5.3 mmol/L 10/07/2024 7:10 AM EDT [facility] Chloride 103 98 - 110 mmol/L 10/07/2024 7:10 AM EDT [facility] CO2 19(L) 21 - 33 mmol/L 10/07/2024 7:10 AM EDT [facility] Anion Gap 10 3 - 16 mmol/L 10/07/2024 7:10 AM EDT [facility] BUN 64(H) 7 - 25 mg/dL 10/07/2024 7:10 AM EDT [facility] Creatinine 3.38(H) 0.60 - 1.30 mg/dL 10/07/2024 7:10 AM EDT [facility] Glucose 111(H) 70 - 100 mg/dL 10/07/2024 7:10 AM EDT [facility] Calcium 9.1 8.6 - 10.3 mg/dL 10/07/2024 7:10 AM EDT [facility] Phosphorus 4.2 2.1 - 4.7 mg/dL 10/07/2024 7:10 AM EDT [facility] Albumin 3.6 3.5 - 5.7 g/dL 10/07/2024 7:10 AM EDT [facility] Osmolality, Calculated 293 278 - 305 mOsm/kg 10/07/2024 7:10 AM EDT [facility] EGFR 22 10/07/2024 7:10 AM EDT [facility] Comment:As of 2021, the estimated GFR [...] Final Result [facility] [address] [place] [address], [facility] * (ABNORMAL) CBC (10/07/2024 6:00 AM EDT) WBC 3.3(L) 3.8 - 10.8 10E3/uL 10/07/2024 7:55 AM EDT [facility] RBC 2.06(L) 4.20 - 5.80 10E6/uL 10/07/2024 7:55 AM EDT [facility] Hemoglobin 7.4(L) 13.2 - 17.1 g/dL 10/07/2024 7:55 AM EDT [facility] Hematocrit 21.5(L) 38.5 - 50.0 % 10/07/2024 7:55 AM EDT [facility] MCV 104.1(H) 80.0 - 100.0 fL 10/07/2024 7:55 AM EDT [facility] MCH 35.8(H) 27.0 - 33.0 pg 10/07/2024 7:55 AM EDT [facility] MCHC 34.4 32.0 - 36.0 g/dL 10/07/2024 7:55 AM EDT [facility] RDW 17.5(H) 11.0 - 15.0 % 10/07/2024 7:55 AM EDT [facility] Platelets 35(L) 140 - 400 10E3/uL 10/07/2024 7:55 AM EDT [facility] Comment: Specimen checked for clots. None detected. Slide Reviewed for PLT Clumps. None Seen. _Platelet Morphology Normal _Platelets Appear Decreased Platelet Estimate Decreased 10/07/2024 7:55 AM EDT [facility] MPV 8.0 7.5 - 11.5 fL 10/07/2024 7:55 AM EDT [facility] Whole Blood 10/07/2024 6:00 AM EDT 10/07/2024 6:40 AM EDT Narrative [facility] - 10/07/2024 7:55 AM EDT Peripheral blood smear was scanned per review criteria approved by the laboratory medical technical writer. us Eileen Schroeder MD, PhD LAB BLOOD ORDERABLES Final Result [facility] [address] [facility] [place] [address], [facility] * AFP Tumor Marker (10/07/2024 6:00 AM EDT) AFP-Tumor Marker 2.0 0.0 - 9.0 ng/mL 10/07/2024 7:11 AM EDT [facility] Serum 10/07/2024 6:00 AM EDT 10/07/2024 6:39 AM EDT Narrative [facility] - 10/07/2024 7:11 AM EDT The testing method for AFP is a chemiluminescent immunoassay manufactured by [employer] Concentrations of AFP obtained by different assay methods or kits may vary and cannot be used interchangeably. AFP results cannot be interpreted as absolute evidence of the presence or absence of malignant disease. Shila Rivera MD LAB BLOOD ORDERABLES Final Resul t Performing Organization Address City/[facility]/ZIP Co de Phone Number [facility] [address] [facility] * Vancomycin, random (10/07/2024 6:00 AM EDT) Vancomycin Random 21.1 ug/mL 10/07/2024 7:08 AM EDT [facility] Comment:Reference range not established for this test. Plasma 10/07/2024 6:00 AM EDT 10/07/2024 6:39 AM EDT Kiet Gardiner PharmD LAB BLOOD ORDERABLES Final Re sult Performing Organization Address [facility] Co de Phone Number [facility] [address] * Osmolality (10/06/2024 2:50 PM EDT) Osmolality, Measured 304 278 - 305 mOsm/kg 10/06/2024 3:49 PM EDT [facility] Serum 10/06/2024 2:50 PM EDT 10/06/2024 2:56 PM EDT Chari Vanegas MD LAB BLOOD ORDERABLES Final Resul t Performing Organization Address [facility]/ZIP Co de Phone Number [facility] [address] * CT Head WO contrast (10/06/2024 [...] PM EDT [facility] [facility] Comment:Reference range not established for this test. Urine 10/06/2024 1:25 PM EDT 10/06/2024 1:32 PM EDT us Chari Vanegas MD URINE ORDERABLES Final Result Performing Organization Address City/[facility]/ZIP Co de Phone Number [facility] [address] [facility]. [address] * Potassium, urine, random (10/06/2024 1:25 PM EDT) Potassium Urine Random 50.0 mmol/L 10/06/2024 1:56 PM EDT [facility] Comment:Reference range not established for this test. Urine 10/06/2024 1:25 PM EDT 10/06/2024 1:32 PM EDT us Chari Vanegas MD URINE ORDERABLES Final Result Performing Organization Address [facility] Co de Phone Number [facility] [address] * Sodium, urine, random (10/06/2024 1:25 PM EDT) Sodium, Ur <10 mmol/L 10/06/2024 1:56 PM EDT [facility] Comment:Reference range not established for this test. Urine 10/06/2024 1:25 PM EDT 10/06/2024 1:32 PM EDT us Chari Vanegas MD URINE ORDERABLES Final Result Performing Organization Address City/[facility] Co de Phone Number [facility] [address] * Creatinine, Urine, Random (10/06/2024 1:25 PM EDT) Creatinine, Urine 87.40 mg/dL 10/06/2024 1:56 PM EDT [facility] Comment:Reference range not established for this test. Urine 10/06/2024 1:25 PM EDT 10/06/2024 1:32 PM EDT us Chari Vanegas MD URINE ORDERABLES Final Result Performing Organization Address City/[facility]/ZIP Co de Phone Number [facility] [address] [facility]. [address] * Osmolality, Urine (10/06/2024 1:25 PM EDT) Osmolality, Ur 386 50 - 1,200 mOsm/kg 10/06/2024 1:55 PM EDT [facility] Urine 10/06/2024 1:25 PM EDT 10/06/2024 1:32 PM EDT us Chari Vanegas MD URINE ORDERABLES Final Result Performing Organization Address [facility] de Phone Number [facility] [address] [facility]. [address] * Urine Drug Confirmation (10/06/2024 11:51 AM EDT) BARBITURATES NOT PRESENT 10/09/2024 3:23 PM EDT [facility] Comment:Results were recheck ed. BENZODIAZEPINES PRESENT 3:23 PM EDT [facility] Nordiazepam 3 ng/mL 10/09/2024 3:23 PM EDT [facility] Comment:Results were recheck ed. Temazepam 8 ng/mL 10/09/2024 3:23 PM EDT [facility] Comment:Results were recheck ed. CANNABINOIDS NOT PRESENT 10/09/2024 3:23 PM EDT [facility] PIPE STEM SAWYER STIMULANTS NOT PRESENT 3:23 PM EDT [facility] OPIOID ANALGESICS PRESENT 025 3:23 PM EDT [facility] Oxycodone 329 ng/mL 10/09/2024 3:23 PM EDT [facility] Oxymorphone 61 ng/mL 10/09/2024 3:23 PM EDT [facility] Tramadol >1000 ng/mL 10/09/2024 3:23 PM EDT [facility] OPIOID ANTAGONISTS NOT PRESENT 10/09 3:23 PM EDT [facility] SEDATIVES/MUSCLE RELAXANTS NOT PRESENT 10/09/2024 3:23 PM EDT [facility] TRICYCLIC ANTIDEPRESSANTS NOT PRESENT 10/09/2024 3:23 PM EDT [facility] Urine 10/06/2024 11:5 1 AM EDT 10/06/2024 1:13 PM EDT us Bisi Hernandez DO URINE ORDERABLES Final Result [facility] [address] [place] [address], [facility] * (ABNORMAL) Urine Drug Screen Reflex to Confirmation (10/06/2024 11:51 AM EDT) Amphetamine, 500 ng/mL Cutoff Negative Negative 10/06/2024 1:13 PM EDT [facility] Barbiturates UR, 300 ng/mL Cutoff Negative Negative 10/06/2024 1:13 PM EDT [facility] Buprenorphine, 5 ng/mL Cutoff Negative Negative 10/06/2024 1:13 PM EDT [facility] Benzodiazepines UR, 300 ng/mL Cutoff Negative Negative 10/06/2024 1:13 PM EDT [facility] Cocaine UR, 300 ng/mL Cutoff Negative Negative 10/06/2024 1:13 PM EDT [facility] Methadone, UR, 300 ng/mL Cutoff Negative Negative 10/06/2024 1:13 PM EDT [facility] Opiates UR, 300 ng/mL Cutoff Negative Negative 10/06/2024 1:13 PM EDT [facility] Oxycodone, 100 ng/mL Cutoff Presumptive Positive(A) Negative 10/06/2024 1:13 PM EDT [facility] Tricyclic Antidepressants, 300 ng/mL Cutoff Negative Negative 10/06/2024 1:13 PM EDT [facility] Comment:This test has been d eveloped and its performance characteristics determined by [facility] which is certified under [...] PM EDT [facility] Comment:This is a screening method only and may be associated with false positive and/or false negative results. Results are not definitive without additional confirmatory testing by mass spectrometry. Fentanyl, 2 ng/mL Cutoff Negative Negative 10/06/2024 1:13 PM EDT [facility] Comment:This test has been d eveloped and its performance characteristics determined by [facility] which is certified under [...] EDT Narrative [facility] - 10/06/2024 1:13 PM EDT CONFIRMATION TO FOLLOW Bisi Akella DO URINE ORDERABLES Final Result [facility] [address] [place] [address] * Chloride, urine, random (10/06/2024 11:51 AM EDT) Chloride, Ur <15 mmol/L 10/06/2024 1:13 PM EDT [facility] Comment:Reference range not established for this test. Urine 10/06/2024 11:5 1 AM EDT 10/06/2024 11:57 AM EDT [employer] DO URINE ORDERABLES Final Result Performing Organization Address City/[facility]/ZIP Co de Phone Number [facility] [address] * Potassium, urine, random (10/06/2024 11:51 AM EDT) Potassium Urine Random 49.0 mmol/L 10/06/2024 1:13 PM EDT [facility] Comment:Reference range not established for this test. Urine 10/06/2024 11:5 1 AM EDT 10/06/2024 11:57 AM EDT [employer] maría DO URINE ORDERABLES Final Result Performing Organization Address City/[facility]/ZIP Co de Phone Number [facility] [address] [facility]. [address] * Sodium, urine, random (10/06/2024 11:51 AM EDT) Sodium, Ur <10 mmol/L 10/06/2024 1:13 PM EDT [facility] Comment:Reference range not established for this test. Urine 10/06/2024 11:5 1 AM EDT 10/06/2024 11:57 AM EDT [employer] maría URINE ORDERABLES Final Result Performing Organization Address [facility] Co de Phone Number [facility] [address] [facility]. [address] * Urinalysis w/Rfl to Microscopic (10/06/2024 11:51 AM EDT) Color, UA Yellow Yellow,Straw 10/06/2024 12:25 PM EDT [facility] Clarity, UA Clear Clear 10/06/2024 12:25 PM EDT [facility] Specific [place], UA 1.014 1.005 - 1.035 10/06/2024 12:25 PM EDT [facility] pH, UA 6.0 5.0 - 8.0 10/06/2024 12:25 PM EDT [facility] Protein, UA Negative Negative mg/dL 10/06/2024 12:25 PM EDT [facility] Glucose, UA Negative Negative mg/dL 10/06/2024 12:25 PM EDT [facility] Ketones, UA Negative Negative mg/dL 10/06/2024 12:25 PM EDT [facility] Bilirubin, UA Negative Negative 10/06/2024 12:25 PM EDT [facility] Blood, UA Negative Negative 10/06/2024 12:25 PM EDT [facility] Nitrite, UA Negative Negative 10/06/2024 12:25 PM EDT [facility] Urobilinogen, UA <2.0 0.2 - 1.9 mg/dL 10/06/2024 12:25 PM EDT [facility] Leukocyte Esterase, UA Negative Negative 10/06/2024 12:25 PM EDT [facility] Urine 10/06/2024 11:5 1 AM EDT 10/06/2024 11:57 AM EDT Narrative [facility] - 10/06/2024 12:25 PM EDT Microscopic testing is not performed when the dipstick is negative for blood, leukocyte, protein and nitrite. us Bisi Hernandez DO URINE ORDERABLES Final Result [facility] [address] * Lactic Acid, STAT (10/06/2024 7:38 AM EDT) Lactate 0.9 0.5 - 2.2 mmol/L 10/06/2024 8:05 AM EDT [facility] Plasma 10/06/2024 7:38 AM EDT 10/06/2024 7:42 AM EDT us Chari Vanegas MD LAB BLOOD ORDERABLES Final Resul t [facility] [address] * (ABNORMAL) CBC, STAT (10/06/2024 7:37 AM EDT) WBC 5.6 3.8 - 10.8 10E3/uL 10/06/2024 8:22 AM EDT [facility] RBC 2.50(L) 4.20 - 5.80 10E6/uL 10/06/2024 8:22 AM EDT [facility] Hemoglobin 9.0(L) 13.2 - 17.1 g/dL 10/06/2024 8:22 AM EDT [facility] Hematocrit 25.3(L) 38.5 - 50.0 % 10/06/2024 8:22 AM EDT [facility] MCV 101.2(H) 80.0 - 100.0 fL 10/06/2024 8:22 AM EDT [facility] MCH 36.0(H) 27.0 - 33.0 pg 10/06/2024 8:22 AM EDT [facility] MCHC 35.6 32.0 - 36.0 g/dL 10/06/2024 8:22 AM EDT [facility] RDW 17.7(H) 11.0 - 15.0 % 10/06/2024 8:22 AM EDT [facility] Platelets 52(L) 140 - 400 10E3/uL 10/06/2024 8:22 AM EDT [facility] Comment: Specimen checked for clots. None detected. Slide Reviewed for PLT Clumps. None Seen. MPV 8.2 7.5 - 11.5 fL 10/06/2024 8:22 AM EDT [facility] Whole Blood 10/06/2024 7:37 AM EDT 10/06/2024 7:43 AM EDT us Chari Vanegas MD LAB BLOOD ORDERABLES Final Resul t [facility] [address] [place] [id number] * (ABNORMAL) Comprehensive Metabolic Panel (10/06/2024 7:37 AM EDT) Sodium 129(L) 133 - 146 mmol/L 10/06/2024 8:16 AM EDT [facility] Potassium 4.4 3.5 - 5.3 mmol/L 10/06/2024 8:16 AM EDT [facility] Chloride 100 98 - 110 mmol/L 10/06/2024 8:16 AM EDT [facility] CO2 18(L) 21 - 33 mmol/L 10/06/2024 8:16 AM EDT [facility] Anion Gap 11 3 - 16 mmol/L 10/06/2024 8:16 AM EDT [facility] BUN 62(H) 7 - 25 mg/dL 10/06/2024 8:16 AM EDT [facility] Creatinine 3.40(H) 0.60 - 1.30 mg/dL 10/06/2024 8:16 AM EDT [facility] Glucose 98 70 - 100 mg/dL 10/06/2024 8:16 AM EDT [facility] Calcium 9.5 8.6 - 10.3 mg/dL 10/06/2024 8:16 AM EDT [facility] Total Bilirubin 14.3(H) 0.0 - 1.5 mg/dL 10/06/2024 8:16 AM EDT [facility] AST 57(H) 13 - 39 U/L 10/06/2024 8:16 AM EDT [facility] ALT 29 7 - 52 U/L 10/06/2024 8:16 AM EDT [facility] Alkaline Phosphatase 158(H) 36 - 125 U/L 10/06/2024 8:16 AM EDT [facility] Total Protein 5.6(L) 6.4 - 8.9 g/dL 10/06/2024 8:16 AM EDT [facility] Albumin 3.6 3.5 - 5.7 g/dL 10/06/2024 8:16 AM EDT [facility] Osmolality, Calculated 286 278 - 305 mOsm/kg 10/06/2024 8:16 AM EDT [facility] EGFR 22 10/06/2024 8:16 AM EDT [facility] Comment:As of 2021, the estimated GFR [...] Resul t [facility] [address] [place] [address], [facility] * (ABNORMAL) Venous Blood Gas, Line/Syringe, STAT (10/06/2024 7:37 AM EDT) PH-Line Draw 7.27(L) 7.32 - 7.42 10/06/2024 7:46 AM EDT [facility] PCO2-Line Draw 36(L) 41 - 51 mm Hg 10/06/2024 7:46 AM EDT [facility] PO2-Line Draw 44(H) 25 - 40 mm Hg 10/06/2024 7:46 AM EDT [facility] HCO3-Line Draw 17(L) 24 - 28 mmol/L 10/06/2024 7:46 AM EDT [facility] CO2 Content-Line Draw 18(L) 25 - 29 mmol/L 10/06/2024 7:46 AM EDT [facility] Base Excess-Line Draw -9.6(L) -2.0 - 3.0 mmol/L 10/06/2024 7:46 AM EDT [facility] %HBO2-Line Draw 69.8 40.0 - 70.0 % 10/06/2024 7:46 AM EDT [facility] Carboxyhgb-Ludivina e Draw 0.7 % 10/06/2024 7:46 AM EDT [facility] Comment: CARBOXYHEMOGLOBIN (CO) REFERENCE RANGES: Non-Smokers: <2 % Smokers: <8 % TOXIC: >20 % Methemoglobin- Line Draw 0.3 0.0 - 1.5 % 10/06/2024 7:46 AM EDT [facility] Reduced Hemoglobin-Ludivina e Draw 29.2(H) 0.0 - 5.0 % 10/06/2024 7:46 AM EDT [facility] Venous, Line Draw 10/06/2024 7:37 AM EDT 10/06/2024 7:43 AM EDT Chari Vanegas MD LAB BLOOD ORDERABLES Final Resul t [facility] [address] [place] [address], [facility] * (ABNORMAL) Venous Blood Gas, Line/Syringe, STAT (10/06/2024 4:03 AM EDT) PH-Line Draw 7.21(L) 7.32 - 7.42 10/06/2024 4:16 AM EDT [facility] PCO2-Line Draw 41 41 - 51 mm Hg 10/06/2024 4:16 AM EDT [facility] PO2-Line Draw 32 25 - 40 mm Hg 10/06/2024 4:16 AM EDT [facility] HCO3-Line Draw 16(L) 24 - 28 mmol/L 10/06/2024 4:16 AM EDT [facility] CO2 Content-Line Draw 18(L) 25 - 29 mmol/L 10/06/2024 4:16 AM EDT [facility] Base Excess-Line Draw -10.8(L) -2.0 - 3.0 mmol/L 10/06/2024 4:16 AM EDT [facility] %HBO2-Line Draw 47.5 40.0 - 70.0 % 10/06/2024 4:16 AM EDT [facility] Carboxyhgb-Ludivina e Draw 2.0 % 10/06/2024 4:16 AM EDT [facility] Comment: CARBOXYHEMOGLOBIN (CO) REFERENCE RANGES: Non-Smokers: <2 % Smokers: <8 % TOXIC: >20 % Methemoglobin- Line Draw 0.7 0.0 - 1.5 % 10/06/2024 4:16 AM EDT [facility] Reduced Hemoglobin-Ludivina e Draw 49.8(H) 0.0 - 5.0 % 10/06/2024 4:16 AM EDT [facility] Venous, Line Draw 10/06/2024 4:03 AM EDT 10/06/2024 4:12 AM EDT [facility] BLOOD ORDERABLES Final Resul t Performing Organization Address [facility] de Phone Number [facility] [address] * (ABNORMAL) Protime-INR (10/06/2024 4:01 AM EDT) Protime 21.3(H) 12.1 - 15.1 seconds 10/06/2024 4:40 AM EDT [facility] INR 1.8(H) 0.9 - 1.1 10/06/2024 4:40 AM EDT [facility] Comment: RECOMMENDED THERAPEUTIC RANGES USING INR : Stable oral anticoagulant therapy: 2.0 - 3.0 Mechanical prosthetic heart valve: 2.5 - 3.5 Recurrent acute myocardial infarction: 2.5 - 3.5 Plasma 10/06/2024 4:01 AM EDT 10/06/2024 4:11 AM EDT [facility] BLOOD ORDERABLES Final Resul t Performing Organization Address [facility] de Phone Number [facility] [address] [facility]. [address] * (ABNORMAL) Hepatic Function Panel, AM (10/06/2024 4:01 AM EDT) Total Bilirubin 14.7(H) 0.0 - 1.5 mg/dL 10/06/2024 4:57 AM EDT [facility] Bilirubin, Direct 7.08(H) 0.00 - 0.40 mg/dL 10/06/2024 4:57 AM EDT [facility] AST 60(H) 13 - 39 U/L 10/06/2024 4:57 AM EDT [facility] ALT 31 7 - 52 U/L 10/06/2024 4:57 AM EDT [facility] Alkaline Phosphatase 162(H) 36 - 125 U/L 10/06/2024 4:57 AM EDT [facility] Total Protein 5.3(L) 6.4 - 8.9 g/dL 10/06/2024 4:57 AM EDT [facility] Albumin 3.4(L) 3.5 - 5.7 g/dL 10/06/2024 4:57 AM EDT [facility] Bilirubin, Indirect 7.62(H) 0.00 - 1.10 mg/dL 10/06/2024 4:57 AM EDT [facility] Plasma 10/06/2024 4:01 AM EDT 10/06/2024 4:22 AM EDT [facility] BLOOD ORDERABLES Final Resul t [facility] [address] [facility]. [address] * Magnesium (10/06/2024 4:01 AM EDT) Magnesium 1.8 1.5 - 2.5 mg/dL 10/06/2024 4:57 AM EDT [facility] Plasma 10/06/2024 4:01 AM EDT 10/06/2024 4:22 AM EDT [facility] BLOOD ORDERABLES Final Resul t Performing Organization Address City/[facility]/ZIP Co de Phone Number [facility] [address] * (ABNORMAL) Renal Function Panel w/EGFR (10/06/2024 4:01 AM EDT) Sodium 129(L) 133 - 146 mmol/L 10/06/2024 4:57 AM EDT [facility] Potassium 4.7 3.5 - 5.3 mmol/L 10/06/2024 4:57 AM EDT [facility] Chloride 100 98 - 110 mmol/L 10/06/2024 4:57 AM EDT [facility] CO2 16(L) 21 - 33 mmol/L 10/06/2024 4:57 AM EDT [facility] Anion Gap 13 3 - 16 mmol/L 10/06/2024 4:57 AM EDT [facility] BUN 61(H) 7 - 25 mg/dL 10/06/2024 4:57 AM EDT [facility] Creatinine 3.49(H) 0.60 - 1.30 mg/dL 10/06/2024 4:57 AM EDT [facility] Glucose 104(H) 70 - 100 mg/dL 10/06/2024 4:57 AM EDT [facility] Calcium 9.2 8.6 - 10.3 mg/dL 10/06/2024 4:57 AM EDT [facility] Phosphorus 5.3(H) 2.1 - 4.7 mg/dL 10/06/2024 4:57 AM EDT [facility] Albumin 3.4(L) 3.5 - 5.7 g/dL 10/06/2024 4:57 AM EDT [facility] Osmolality, Calculated 286 278 - 305 mOsm/kg 10/06/2024 4:57 AM EDT [facility] EGFR 22 10/06/2024 4:57 AM EDT [facility] Comment:As of 2021, the estimated GFR [...] Resul t [facility] [address] * (ABNORMAL) CBC (10/06/2024 4:01 AM EDT) WBC 7.6 3.8 - 10.8 10E3/uL 10/06/2024 5:16 AM EDT [facility] RBC 2.77(L) 4.20 - 5.80 10E6/uL 10/06/2024 5:16 AM EDT [facility] Hemoglobin 10.1(L) 13.2 - 17.1 g/dL 10/06/2024 5:16 AM EDT [facility] Hematocrit 28.4(L) 38.5 - 50.0 % 10/06/2024 5:16 AM EDT [facility] MCV 102.4(H) 80.0 - 100.0 fL 10/06/2024 5:16 AM EDT [facility] MCH 36.4(H) 27.0 - 33.0 pg 10/06/2024 5:16 AM EDT [facility] MCHC 35.5 32.0 - 36.0 g/dL 10/06/2024 5:16 AM EDT [facility] RDW 18.0(H) 11.0 - 15.0 % 10/06/2024 5:16 AM EDT [facility] Platelets 53(L) 140 - 400 10E3/uL 10/06/2024 5:16 AM EDT [facility] Comment:Specimen checked for clots. None detected. MPV 8.4 7.5 - 11.5 fL 10/06/2024 5:16 AM EDT [facility] Whole Blood 10/06/2024 4:01 AM EDT 10/06/2024 4:11 AM EDT us Bisi Hernandez DO LAB BLOOD ORDERABLES Final Resul t [facility] [address] * Hepatitis C Antibody (10/06/2024 4:01 AM EDT) HCV Ab Nonreactive Nonreactive 10/06/2024 5:12 AM EDT [facility] Comment:Health Department no tified in accordance with reportable infectious disease guidelines. Serum 10/06/2024 4:01 AM EDT 10/06/2024 4:11 AM EDT Replaced by [facility] - 10/06/2024 5:12 AM EDT Antibodies to HCV not detected; does not exclude the possibility of exposure to HCV. [employer] LAB BLOOD ORDERABLES Final Resul t Performing Organization Address [facility] Co de Phone Number [facility] [address] [place] [address]. [address] * (ABNORMAL) Hepatitis B Surface Antibody, Quantitati (10/06/2024 4:01 AM EDT) Hep B S Ab Reactive( A) Nonreactive 10/06/2024 5:16 AM EDT [facility] HBSAB NUMBER 11.50(H) 0.00 - 7.99 mIU/mL 10/06/2024 5:16 AM EDT [facility] Serum 10/06/2024 4:01 AM EDT 10/06/2024 4:11 AM EDT Replaced by [facility] - 10/06/2024 5:16 AM EDT Individual is considered immune to HBV infection. [employer] LAB BLOOD ORDERABLES Final Resul t Performing Organization Address [facility] de Phone Number [facility] [address] [facility]. [address] * Hepatitis B surface antigen (10/06/2024 4:01 AM EDT) Hep B Surface Ag Nonreactive Nonreactive 10/06/2024 5:07 AM EDT [facility] Comment:Health Department no tified in accordance with reportable infectious disease guidelines. Serum 10/06/2024 4:01 AM EDT 10/06/2024 4:11 AM EDT Replaced by [facility] - 10/06/2024 5:07 AM EDT Specimen is considered negative for HBsAg. [facility] BLOOD ORDERABLES Final Resul t Performing Organization Address City/[facility]/ZIP Co de Phone Number [facility] [address] * Hepatitis A Antibody Total (10/06/2024 4:01 AM EDT) Anti-HAV Total (IgG + IgM) Nonreactive 10/06/2024 5:08 AM EDT [facility] Serum 10/06/2024 4:01 AM EDT 10/06/2024 4:11 AM EDT [facility] - 10/06/2024 5:08 AM EDT HAV antibodies not detected [facility] BLOOD ORDERABLES Final Resul t Performing Organization Address [facility] Co de Phone Number [facility] [address] [facility]. [address] * Hepatitis A IgM (10/06/2024 4:01 AM EDT) Hep A IgM Nonreactive Nonreactive 10/06/2024 5:02 AM EDT [facility] Serum 10/06/2024 4:01 AM EDT 10/06/2024 4:11 AM EDT Replaced by [facility] - 10/06/2024 5:02 AM EDT IgM anti-HAV not detected. Does not exclude the possibility of exposure to or infection with HAV. Levels of IgM anti-HAV may be below the cut-off in early infection. [facility] BLOOD ORDERABLES Final Resul t Performing Organization Address City/[facility]/ZIP Co de Phone Number [facility] [address] * (ABNORMAL) Salicylate Level (10/06/2024 4:01 AM EDT) Salicylate Lvl <3(L) 10 - 30 mg/dL 10/06/2024 4:58 AM EDT [facility] Serum 10/06/2024 4:01 AM EDT 10/06/2024 4:22 AM EDT [facility] BLOOD ORDERABLES Final Resul t Performing Organization Address [facility] de Phone Number [facility] [address] [facility]. [address] * AFP Tumor Marker (10/06/2024 4:01 AM EDT) [facility] AFP-Tumor Marker 2.6 0.0 - 9.0 ng/mL 10/06/2024 4:55 AM EDT [facility] Serum 10/06/2024 4:01 AM EDT 10/06/2024 4:22 AM EDT Narrative [facility] - 10/06/2024 4:55 AM EDT The testing method for AFP is a chemiluminescent immunoassay manufactured by [employer] Concentrations of AFP obtained by different assay methods or kits may vary and cannot be used interchangeably. AFP results cannot be interpreted as absolute evidence of the presence or absence of malignant disease. [facility] BLOOD ORDERABLES Final Resul t Performing Organization Address [facility] de Phone Number [facility] [address] [facility]. [address] * Upper Respiratory Viral/Bacterial Panel-NURSES' REGISTRY DIRECTOR Only (10/06/2024 3:12 AM EDT) [facility] Adenovirus Not Detected Not Detected 10/06/2024 11:38 PM EDT [facility] Coronavirus (229E,HKU1,NL63,OC 43) Not Detected Not Detected 10/06/2024 11:38 PM EDT [facility] SARS-CoV-2 Not Detected Not Detected 10/06/2024 11:38 PM EDT [facility] Human Metapneumovirus Not Detected Not Detected 10/06/2024 11:38 PM EDT [facility] Human Rhinovirus/Enterov irus Not Detected Not Detected 10/06/2024 11:38 PM EDT [facility] Influenza A Not Detected Not Detected 10/06/2024 11:38 PM EDT [facility] Influenza A H1 Not Detected Not Detected 10/06/2024 11:38 PM EDT [facility] Influenza A/H1-2009 Not Detected Not Detected 10/06/2024 11:38 PM EDT [facility] Influenza A H3 Not Detected Not Detected 10/06/2024 11:38 PM EDT [facility] Influenza B Not Detected Not Detected 10/06/2024 11:38 PM EDT [facility] Parainfluenza 1 Not Detected Not Detected 10/06/2024 11:38 PM EDT [facility] Parainfluenza 2 Not Detected Not Detected 10/06/2024 11:38 PM EDT [facility] Parainfluenza 3 Not Detected Not Detected 10/06/2024 11:38 PM EDT [facility] Parainfluenza 4 Not Detected Not Detected 10/06/2024 11:38 PM EDT [facility] Resp. Syncycial Virus A Not Detected Not Detected 10/06/2024 11:38 PM EDT [facility] Resp. Syncycial Virus B Not Detected Not Detected 10/06/2024 11:38 PM EDT [facility] Chlamydia pneumoniae Not Detected Not Detected 10/06/2024 11:38 PM EDT [facility] Mycoplasma pneumoniae Not Detected Not Detected 10/06/2024 11:38 PM EDT [facility] Comment: The Respiratory Viral-Bacterial Panel is [...] been sent to the [facility] in accordance with state requirements. For a fact sheet for healthcare providers, see https://www.fda.gov/media/671171/download. For a fact sheet for patients, see https://www.fda.gov/media/126021/download. Nasopharyngeal Swab NASOPHARYNGEAL SWAB / Unknown 10/06/2024 3:12 AM EDT 10/06/2024 5:41 PM EDT Comment:NURSES' REGISTRY DIRECTOR us Bisi Hernandez DO BODY FLUIDS AND STOOLS ORDERABLE S Final Result [facility] [address] [place] [address], [facility] * X-ray Portable [...] 2:33 AM EDT Bisi Hernandez DO [facility]AG[facility] ORDERABLE S Final Result * Phosphatidylethanol Confirmation, B (10/06/2024 1:04 AM EDT) PETH 16:0/18.1 (POPETH) <10 Cutoff: 10 ng/mL 10/10/2024 3:11 AM EDT [facility] Comment: Phosphatidylethanol (PEth) homologues result interpretation [...] Cutoff: 10 ng/mL 10/10/2024 3:11 AM EDT [facility] Comment: PEth 16:0/18:2 (PLPEth) Reference ranges are not well established PEth Interpretation Negative. 10/10 3:11 AM EDT [facility] Comment: ADDITIONAL INFORMATION This report is intended for use in clinical monitoring and management of patients. It is not intended for use in employment-related testing. This test was developed and its performance characteristics determined by [facility] in a manner consistent with CLIA requirements. This test has not been cleared or approved by the U.S. Food and Drug Administration. Test Performed by: [facility] - [address] [address] Medical Imaging Technician: Kathy Ortiz Ph.D.; CLIA# [id number] Whole Blood 10/06/2024 1:04 AM EDT 10/10/2024 3:11 AM EDT [facility] BLOOD ORDERABLES Final Resul t [facility] [address] [place] [address]. [address] * (ABNORMAL) Acetaminophen Level (10/06/2024 1:04 AM EDT) Acetaminophen Level <10(L) 10 - 30 ug/mL 10/06/2024 2:08 AM EDT [facility] Serum 10/06/2024 1:04 AM EDT 10/06/2024 1:30 AM EDT [facility] BLOOD ORDERABLES Final Resul t Performing Organization Address [facility]/ZIP Co de Phone Number [facility] [address] [place] [address]. [address] * Ethanol, Serum (10/06/2024 1:04 AM EDT) Ethanol <10 0 - 10 mg/dL 10/06/2024 2:08 AM EDT [facility] Serum 10/06/2024 1:04 AM EDT 10/06/2024 1:30 AM EDT [facility] BLOOD ORDERABLES Final Resul t Performing Organization Address City/[facility] Co de Phone Number [facility] [address] [place] [address]. [address] * #2 Blood culture-Peripheral site 2 (10/06/2024 1:04 AM EDT) Culture Result No Growth After 5 Days [facility] Blood BLOOD SPECIMEN / Unknown 10/06/2024 1:04 AM EDT 10/06/2024 4:57 AM EDT Narrative [facility] - 10/11/2024 5:05 AM EDT Suboptimal volume of blood received. Interpret results with caution. Bisi Hernandez DO MICROBIOLOGY - GENERAL ORDERABLE S Final Result [facility] [address] * #1 Blood culture-Peripheral site 1 (10/06/2024 1:04 AM EDT) Culture Result No Growth After 5 Days [facility] Blood BLOOD SPECIMEN / Unknown 10/06/2024 1:04 AM EDT 10/06/2024 4:57 AM EDT Narrative [facility] - 10/11/2024 5:01 AM EDT Suboptimal volume of blood received. Interpret results with caution. Bisi [employer] MICROBIOLOGY - GENERAL ORDERABLE S Final Result [facility] [address] * Ammonia (10/06/2024 1:04 AM EDT) Ammonia 77 27 - 90 ug/dL 10/06/2024 2:00 AM EDT [facility] Plasma 10/06/2024 1:04 AM EDT 10/06/2024 1:30 AM EDT [facility] BLOOD ORDERABLES Final Resul t [facility] [address] * Thyroid Function [place] (10/06/2024 1:04 AM EDT) TSH 0.84 0.45 - 4.12 uIU/mL 10/06/2024 2:20 AM EDT [facility] Serum 10/06/2024 1:04 AM EDT 10/06/2024 1:39 AM EDT us [employer] DO LAB BLOOD ORDERABLES Final Resul t Performing Organization Address [facility] Co de Phone Number [facility] [address] * (ABNORMAL) Protime-INR (10/06/2024 1:04 AM EDT) Protime 22.8(H) 12.1 - 15.1 seconds 10/06/2024 1:48 AM EDT [facility] INR 1.9(H) 0.9 - 1.1 10/06/2024 1:48 AM EDT [facility] Comment: RECOMMENDED THERAPEUTIC RANGES USING INR : Stable oral anticoagulant therapy: 2.0 - 3.0 Mechanical prosthetic heart valve: 2.5 - 3.5 Recurrent acute myocardial infarction: 2.5 - 3.5 Plasma 10/06/2024 1:04 AM EDT 10/06/2024 1:30 AM EDT us [facility] BLOOD ORDERABLES Final Resul t Performing Organization Address [facility] de Phone Number [facility] [address] * Lactic Acid, STAT (10/06/2024 1:04 AM EDT) Lactate 1.2 0.5 - 2.2 mmol/L 10/06/2024 1:59 AM EDT [facility] Plasma 10/06/2024 1:04 AM EDT 10/06/2024 1:30 AM EDT [employer] DO LAB BLOOD ORDERABLES Final Resul t Performing Organization Address [facility] Co de Phone Number [facility] [address] * (ABNORMAL) CBC, STAT (10/06/2024 1:04 AM EDT) WBC 7.9 3.8 - 10.8 10E3/uL 10/06/2024 2:36 AM EDT [facility] RBC 2.76(L) 4.20 - 5.80 10E6/uL 10/06/2024 2:36 AM EDT [facility] Hemoglobin 9.9(L) 13.2 - 17.1 g/dL 10/06/2024 2:36 AM EDT [facility] Hematocrit 28.0(L) 38.5 - 50.0 % 10/06/2024 2:36 AM EDT [facility] MCV 101.5(H) 80.0 - 100.0 fL 10/06/2024 2:36 AM EDT [facility] MCH 35.7(H) 27.0 - 33.0 pg 10/06/2024 2:36 AM EDT [facility] MCHC 35.2 32.0 - 36.0 g/dL 10/06/2024 2:36 AM EDT [facility] RDW 17.9(H) 11.0 - 15.0 % 10/06/2024 2:36 AM EDT [facility] Platelets 58(L) 140 - 400 10E3/uL 10/06/2024 2:36 AM EDT [facility] Comment: Specimen checked for clots. None detected. Slide Reviewed for PLT Clumps. None Seen. MPV 8.2 7.5 - 11.5 fL 10/06/2024 2:36 AM EDT [facility] Whole Blood 10/06/2024 1:04 AM EDT 10/06/2024 1:31 AM EDT us Bisi Hernandez DO LAB BLOOD ORDERABLES Final Resul t [facility] [address] [facility] [place] [address], [facility] * (ABNORMAL) Comprehensive Metabolic Panel (10/06/2024 1:04 AM EDT) Sodium 127(L) 133 - 146 mmol/L 10/06/2024 2:05 AM EDT [facility] Potassium 4.5 3.5 - 5.3 mmol/L 10/06/2024 2:05 AM [facility] Chloride 99 98 - 110 mmol/L 10/06/2024 2:05 AM [facility] CO2 18(L) 21 - 33 mmol/L 10/06/2024 2:05 AM [facility] Anion Gap 10 3 - 16 mmol/L 10/06/2024 2:05 AM [facility] BUN 59(H) 7 - 25 mg/dL 10/06/2024 2:05 AM [facility] Creatinine 3.54(H) 0.60 - 1.30 mg/dL 10/06/2024 2:05 AM [facility] Glucose 116(H) 70 - 100 mg/dL 10/06/2024 2:05 AM [facility] Calcium 9.0 8.6 - 10.3 mg/dL 10/06/2024 2:05 AM [facility] Total Bilirubin 14.8(H) 0.0 - 1.5 mg/dL 10/06/2024 2:05 AM [facility] AST 61(H) 13 - 39 U/L 10/06/2024 2:05 AM [facility] ALT 33 7 - 52 U/L 10/06/2024 2:05 AM [facility] Alkaline Phosphatase 174(H) 36 - 125 U/L 10/06/2024 2:05 AM [facility] Total Protein 5.2(L) 6.4 - 8.9 g/dL 10/06/2024 2:05 AM [facility] Albumin 3.3(L) 3.5 - 5.7 g/dL 10/06/2024 2:05 AM [facility] Osmolality, Calculated 282 278 - 305 mOsm/kg 10/06/2024 2:05 AM [facility] EGFR 21 10/06/2024 2:05 AM [facility] Comment:As of [...] DO LAB BLOOD ORDERABLES Final Resul t [facility] [address] documented in this encounter Visit Diagnoses [...] of cervical spinal surgery Anemia Unspecified anemia Alcoholic cirrhosis of liver with ascites (CMS-HCC) Cirrhosis of liver with ascites, [...] Daily as needed, Allergies, itching, Starting on Sun10/11/24 at 1030 melatonin tablet Tab 6 mg [...] ЮЛИЯ) 0636 (Given - Provider: Chelsy Bush, RN)1317 [...] INSOMNIA 2103 (Not Given - Provider: Chelsy Bush, ЮЛИЯ - Reason: Patient/family refused) 2032 (Not Given [...] Wolff RN)2022 (Given - Provider: Soco Milton, RN) 0850 (Given - Provider: Suzette Arciniega, RN) midodrine (PROAMATINE) tablet 10 mg 10 mg, Oral, 3 times daily, First dose on Tish 10/09/24 at 1300 0820 (Given - Provider: Anu [...] at 0200 0820 (Given - Provider: Anu oWlff RN)210 (Given - Provider: Chelsy Bush RN) 0834 (Given - Provider: Anu Wolff RN)2022 (Given - Provider: Soco Milton, ЮЛИЯ) 0850 (Given - Provider: Suzette Arciniega RN) sertraline (ZOLOFT) tablet 50 mg (CANCELED) 50 [...] ЮЛИЯ) 0849 (Given - Provider: Suzette Arciniega, ЮЛИЯ) [...] Anu Wolff RN)211 (Given - Provider: Chelsy uBsh RN) 0833 [...] documented as of this encounter Care Teams Shell Reprint Operator Relationship Specialty Start Date End Date Enedina Mcguire NP [address] [place] [address] PCP - General Internal Medicine 10/05/24 documented as of this encounter
--- OUTSIDE RECORDS SUMMARY | 2024-10-10 12:01 | XMS_ITS | Encounter Summary ---
Author Organization [facility] Address [address] [place] [address] Care Team Providers Care Electronics Detail Draftsperson Name Role Phone Enedina Mcguire NP Primary Care Provider [phone] Source Comments This information has been disclosed [...] release of HIV test results or diagnoses. [id number] Reason for Visit * Auth/Cert (Routine) Specialty Diagnoses / Procedures Referred By Shane hernadez Referred To Contact General Internal Medicine Diagnoses [facility] [address] [place] [address] Phone: tel: Referral ID Status Reason Start Date Expiration Date Visits Re quested Visits Authorized [id number] 1 1 Encounter Details Date Type Department Care Team (Late st Contact Info) Description 10/10/2024 12:01 PM EDT Anesthesia Event [facility] ENDOSCOPY [address] [place] [address] Cady Bhat MD [address] [address] Bob Leggett MD [address] [place] [facility] [address] [place] [address] Anesthesia Record Procedure Summary Procedure [...] Recorded In the past 12 months has [employer], [employer], or [employer] threatened to shut off services in your [...] in the past 12 m [facility], were you homeless or living in a halfway (including now)? No 10/06/2024 Yearly Questionnaire Answer [...] Bhat MD - 10/10/2024 10:15 AM EDT [facility] DEPARTMENT OF ANESTHESIOLOGY PRE-PROCEDURAL EVALUATION [...] Resource Strain: Low Risk (07/09/2024) Received from [facility] Overall Financial Resource Strain (CARDIA) [...] No Physical Activity: Unknown (07/14/2024) Received from [facility] Exercise Vital Sign Days of Exercise per Week: Patient unable to answer Minutes of Exercise per Session: Not on file Stress: Patient Unable To Answer (07/14/2024) Received from [facility] Filipino [place] of Occupational Health - Occupational Stress Questionnaire Feeling of Stress : Patient unable to answer Social Connections: Patient Unable To Answer (07/14/2024) Received from [facility] Social Connection and Isolation Panel [NHANES] Frequency of Communication with Friends and Family: Patient unable to answer Frequency of Social Gatherings with Friends and Family: Patient unable to answer Attends Amish Services: Patient unable to answer Active Member [...] in detail. Questions answered. Plan discussed with DIRECTOR CARD. [1] Allergies Allergen Reactions Adhesive Itching and Rash Tegaderm adhesive on Ivs, pt states its tolerable Duloxetine Other (See Comments) Became Manic documented in this encounter Plan of Treatment Upcoming Encounters Date Type Department Care Team (Late st Contact Info) Description 12/05/2024 8:01 AM EDT Hospital Encounter [facility] ENDOSCOPY [address] [place] [address] Chris Orosco MD [address] [place] [phone] 12/05/2024 8:01 AM EDT - 12/05/2024 8:31 AM EDT Surgery [facility] ENDOSCOPY [address] [place] [address] Chris Orosco MD [address] [place] [phone] EGD Scheduled Procedures Name Priority Associated Diagnoses [...] 10/09/24699 - 10/10/2465810/10/24699 - 10/11/24 0659 Shift 1668-9307 8512-2310 8963-5593 24 Hour Total 0071-1569 8330-2078 5091-0649 24 Hour Total INTAKE P.[address]. [address] 210 [...] documented as of this encounter Care Teams Electronics Detail Draftsperson Relationship Specialty Start Date End Date Enedina Mcguire NP [address] [place] [address] PCP - General Internal Medicine 10/05/24 documented as of this encounter
--- OUTSIDE RECORDS SUMMARY | 2024-10-14 08:42 | XMS_ITS | Encounter Summary ---
Author Organization [facility] Address [facility] [place] [address] Care Team Providers Care Coil Winding Supervisor Name Role Phone Enedina Mcguire NP Primary Care Provider [phone] Source Comments This information has been disclosed [...] release of HIV test results or diagnoses. [id number] Health Reason for Visit * Auth/Cert (Routine) Specialty Diagnoses / Procedures Referred By Shane hernadez Referred To Contact General Internal Medicine Diagnoses AMS [facility] [address] [place] [address] Phone: tel: Referral ID Status Reason Start Date Expiration Date Visits Re quested Visits Authorized [id number] 1 1 Encounter Details Date Type Department Care Team (Late st Contact Info) Description 10/14/2024 8:42 AM EDT - 10/14/2024 9:27 AM EDT Surgery [facility] Cardiac Chipper Operator [address] [place] [address] Irving Matta MD [address] [facility] [place] [address] Left Heart Cath Surgery Details [...] the past 12 months has th e [employer], gas, oil, or water [employer] threatened to shut off services in your [...] any time in the past 12 m [facility], were you homeless or [...] Kandy Fuentes - 10/17/2024 10:29 AM EDT [facility] Care Management Discharge Summary Patient name: [...] Home post discharge: Not Applicable Kandy [facility] [phone] * William Blount MD - 10/17/2024 8:50 AM EDT [facility] Inpatient Discharge Summary Patient: Julien Gilbert Age: 39 y.o. CSN: [id number] Date of Admission: 10/05/2024 Date of Discharge: [...] Case IDs Date Procedure Surgeon Location Status [id number] 10/10/24 EGD Lino Soto MD ENDOSCOPY Comp [id number] 10/14/24 Left Heart Cath Irving Matta MD [...] at 10/08/2024 1:12 PM EDT US Duplex Cdk-Aqj-Wyugeoa Comp Final Result IMPRESSION: ABDOMEN 1. Cirrhotic [...] 90 tablet Refills: 0 naloxone 4 mg/actuation [employer] Commonly known as: NARCAN Apply 1 spray [...] Your Medications These medications were sent to [facility] [id number] Hours: Sunday - Sunday: 8:00AM - 6:00PM FLUoxetine 20 MG capsule lactulose 10 gram/15 mL solution loratadine 10 mg tablet methocarbamoL 500 MG tablet midodrine 10 MG tablet naloxone 4 mg/actuation [employer] oxyCODONE 5 MG immediate release tablet Discharge [...] [M54.2, Z98.890] 10/07/2024 SBP (spontaneous bacterial peritonitis) ([facility]) [K65.2] 09/08/2024 Anemia [D64.9] 09/05/2024 [...] Order Questions: Select Supplement: Boost-1 kcal/ml supplement ([facility] only) As listed above, low sodium [...] AM EDT 10/17/2024 naloxone (NARCAN) 4 mg/actuation [employer] Apply 1 spray in one nostril if [...] by mouth daily. 60 tablet 2 09/02/2024 rifAXIMin (XIFAXAN) 550 mg Tab tablet Take [...] Hughes MD - 10/17/2024 10:23 AM EDT [facility] PROGRESS NOTE Name: Julien Gilbert CSN: [id number] Consulted by: Chelsy Lerner MD Reason for [...] Yes Past Week naloxone (NARCAN) 4 mg/actuation [employer] Apply 1 spray in one nostril if [...] nucleated cells, <2000 RBCs 10% Polynuclear, 90% [place] nuc. There were initial reports of gram [...] for d/c today Bobby Sidhu MD Transplant Coil Inspector Please see the body of the resident, [...] Staff. Jeremiah Gamino PGY4 Nephrology. Pager no. [phone] Chief Complaint No chief complaint on file. [...] hyperlipidemia (07/26/2024), Renal cell carcinoma (CMS-HCC), Thrombocytopenia ([facility]), and Thyroid disease. he has a [...] at 10/08/2024 1:12 PM EDT US Duplex Qwa-Kzq-Tvapjqp Comp Final Result IMPRESSION: ABDOMEN 1. Cirrhotic [...] no head imaging has been performed at [facility]. -CT Head w/o contrast -Imaging showed [...] Order Questions: Select Supplement: Boost-1 kcal/ml supplement ([facility] only) Code Status: Full Code Signed: WILLIAM BLOUNT MD 10/16/2024, 2:16 PM Cosigned by Chelsy Lerner MD at 10/16/2024 5:38 PM EDT Associated attestation - Chelsy Lerner MD - 10/16/2024 5:38 PM EDT [facility] Medicine Attending Supervision Note [...] another specialty or practice, other licensed professional (PT/OT/INFRASTRUCTURE SECURITY ARCHITECT/RT), or a non-medical community professional: Hepatology, Interventional [...] due to positioning during LHC on 10/14. 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 Precipitant of his HE likely SBP. Diagnostic paracentesis at OSH reportedly showed 61 nucleated cells, <2000 RBCs 10% Polynuclear, 90% [place] nuc. There were initial reports of gram [...] Based on CBW of 119.5 kg Kcals/day: 4230-6103 (18-21 kcals/kg) Protein g/day: 119-143 (1-1.2 g/kg) [...] Kumar RD, LD Clinical Dietitian Contact via [employer] * Jerad Hughes MD - 10/16/2024 11:03 AM EDT [facility] PROGRESS NOTE Name: Julien Gilbert CSN: [id number] Consulted by: Chelsy Lerner MD Reason for [...] nucleated cells, <2000 RBCs 10% Polynuclear, 90% [place] nuc. There were initial reports of gram [...] - Will follow Bobby Sidhu MD Transplant Coil Inspector Please see the body of the resident, [...] Staff. Jeremiah Gamino PGY4 Nephrology. Pager no. [phone] Chief Complaint No chief complaint on file. [...] at 10/08/2024 1:12 PM EDT US Duplex Amp-Bqa-Oqqgpfd Comp Final Result IMPRESSION: ABDOMEN 1. Cirrhotic [...] no head imaging has been performed at [facility]. -CT Head w/o contrast -Imaging showed [...] not tolerate beta odminic due to hypotension. - s/p EGD 10/09 [...] Order Questions: Select Supplement: Boost-1 kcal/ml supplement ([facility] only) Code Status: Full Code Signed: WILLIAM BLOUNT MD 10/15/2024, 10:49 AM Cosigned by Chelsy Lerner MD at 10/15/2024 2:47 PM EDT Associated attestation - Chelsy Lerner MD - 10/15/2024 2:47 PM EDT [facility] Medicine Attending Supervision Note [...] another specialty or practice, other licensed professional (PT/OT/INFRASTRUCTURE SECURITY ARCHITECT/RT), or a non-medical community professional: Hepatology, Interventional [...] due to positioning during LHC on 10/14. [place] the worst in CVR, but has improved [...] Hughes MD - 10/15/2024 10:15 AM EDT [facility] PROGRESS NOTE Name: Julien Gilbert CSN: [id number] Consulted by: Chelsy Lerner MD Reason for [...] nucleated cells, <2000 RBCs 10% Polynuclear, 90% [place] nuc. There were initial reports of gram [...] - Will follow Bobby Sidhu MD Transplant Coil Inspector Please see the body of the resident, [...] Quan MD - 10/14/2024 2:34 PM EDT [facility] Department of Cardiovascular Health and [...] Staff. Jeremiah Gamino PGY4 Nephrology. Pager no. [phone] Chief Complaint No chief complaint on file. [...] at 10/08/2024 1:12 PM EDT US Duplex Fwp-Hey-Ceiancp Comp Final Result IMPRESSION: ABDOMEN 1. Cirrhotic [...] no head imaging has been performed at [facility]. -CT Head w/o contrast -Imaging showed [...] Order Questions: Select Supplement: Boost-1 kcal/ml supplement ([facility] only) Code Status: Full Code Signed: [...] another specialty or practice, other licensed professional (PT/OT/INFRASTRUCTURE SECURITY ARCHITECT/RT), or a non-medical community professional: Hepatology, Interventional [...] Hughes MD - 10/14/2024 7:42 AM EDT [facility] PROGRESS NOTE Name: Julien Gilbert CSN: [id number] Consulted by: Chelsy Lerner MD Reason for [...] nucleated cells, <2000 RBCs 10% Polynuclear, 90% [place] nuc. There were initial reports of gram [...] - Will follow Bobby Sidhu MD Transplant Coil Inspector Please see the body of the resident, [...] 10/05/2024 Referring physician: Fouzia Rene MD Summary Julein Gilbert is 39 y.o. male with liver [...] Staff. Jeremiah Gamino PGY4 Nephrology. Pager no. [phone] Chief Complaint No chief complaint on file. [...] Other (See Comments) Became Manic Cosigned by Dwayen Paez MD at 10/13/2024 5:33 PM EDT [...] Hughes MD - 10/13/2024 12:33 PM EDT [facility] PROGRESS NOTE Name: Julien Gilbert CSN: [id number] Consulted by: Fouzia Rene MD Reason for [...] nucleated cells, <2000 RBCs 10% Polynuclear, 90% [place] nuc. There were initial reports of gram [...] - Will follow Bobby Sidhu MD Transplant Coil Inspector Please see the body of the resident, [...] Fabian RD - 10/13/2024 10:49 AM EDT [facility] Medical Nutrition Therapy Reason(s) for [...] Order Questions: Select Supplement: Boost-1 kcal/ml supplement ([facility] only) Pertinent Information: Julien Gilbert is a 39 y.o. Male admitted for Acute kidney injury superimposedon CKD ([facility]) Pt noted to have waxing [...] kg) Body mass index is 32.07 kg/m??. [place] Body Weight: 202 lbs (91.8 kg) +/- 10% Weight History: Wt Readings from Last 10 Encounters: 10/10/24 (!) 263 lb 8 oz (119.5 kg) 09/05/24 (!) 262 lb 9.6 oz (119.1 kg) 09/02/24 (!) 258 lb (117 kg) 08/17/24 (!) 242 lb 11.2 oz (110.1 kg) 07/28/24 (!) 245 lb (111.1 kg) Estimated Nutrition Needs: Based on CBW of 119.5 kg Kcals/day: 3688-1619 (18-21 kcals/kg) Protein g/day: 119-143 (1-1-2 g/kg) [...] Dietitian - Solid Organ Transplant Contact via [employer] * Eileen Schroeder MD, PhD - 10/13/2024 8:19 AM EDT Department of Internal Medicine Daily Progress Note Chief Complaint / Reason for Follow-Up Julien Gilbert is a 39 y.o. male on hospital day 8. The principal reason for today's follow up visit is Acute kidney injury superimposed on CKD ([facility]). NAEON Pt felt well this [...] at 10/08/2024 1:12 PM EDT US Duplex Mok-Ydz-Owdxbot Comp Final Result IMPRESSION: ABDOMEN 1. Cirrhotic [...] no head imaging has been performed at [facility]. -CT Head w/o contrast -Imaging showed [...] Order Questions: Select Supplement: Boost-1 kcal/ml supplement ([facility] only) Code Status: Full Code Signed: [...] reviewed the documentation by the medical steam drier tender and agree as documented. Any additions [...] another specialty or practice, other licensed professional (PT/OT/INFRASTRUCTURE SECURITY ARCHITECT/RT), or a non-medical community professional: Nephrology, Hepatology [...] at 10/08/2024 1:12 PM EDT US Duplex Wte-Led-Ooffsff Comp Final Result IMPRESSION: ABDOMEN 1. Cirrhotic [...] no head imaging has been performed at [facility]. -CT Head w/o contrast -Imaging showed [...] Order Questions: Select Supplement: Boost-1 kcal/ml supplement ([facility] only) Code Status: Full Code Signed: [...] reviewed the documentation by the medical steam drier tender and agree as documented. Any additions or clarifications are listed below. Daily plan was discussed with patient at bedside and questions addressed. Patient ID: Julien Gilbert is a 39 y.o. male currently admitted for Acute kidney injury superimposed on CKD ([facility]) Supplemental History/ ROS: No acute [...] injury superimposed on CKD ([facility]) Active Problems: NADIYA (acute kidney injury) on CKD ([facility]): Hepatorenal syndrome. Appreciate nephrology consult. [...] and rifaximin Decompensated cirrhosis ([facility]): Appreciate hepatology consult. He has [...] another specialty or practice, other licensed professional (PT/OT/INFRASTRUCTURE SECURITY ARCHITECT/RT), or a non-medical community professional: Nephrology, Hepatology [...] hepatorenal syndrome.` Patient came from [facility], paracentesis was performed yesterday on 10/05? Fluid [...] 706.9 (H) 10/08/2024 No results found for: [id number] , FOLATE Lab Results Component Value Date [...] CRUR No results found for: MICROALBUR , [id number] In addition to the above an extensive [...] 4.6 10/12/2024 Lab Results Component Value Date MFXA47A 7.1 (L) 10/08/2024 PLAN Monitor renal panel [...] AM Colten Huertas MD, KISHOR LIN, FNKF technician automatic Div. of Nephrology [facility] E-mail: [email or web address] This note was completely edited, [...] hepatorenal syndrome.` Patient came from [facility], paracentesis was performed yesterday on 10/05? Fluid [...] 706.9 (H) 10/08/2024 No results found for: [id number] , FOLATE Lab Results Component Value Date [...] CRUR No results found for: MICROALBUR , [id number] In addition to the above an extensive [...] 3.5 10/11/2024 Lab Results Component Value Date SWWL84M 7.1 (L) 10/08/2024 PLAN Monitor renal panel [...] AM Colten Huertas MD, KISHOR LIN, CATHYF technician automatic Div. of Nephrology [facility] E-mail: [email or web address] This note was completely edited, [...] 3.85 / 39 \ / 20 / 88 \ PT/INR/PTT - 10/11/2024 PT [...] at 10/08/2024 1:12 PM EDT US Duplex Qfj-Viy-Qxuendy Comp Final Result IMPRESSION: ABDOMEN 1. Cirrhotic [...] from outside facility. Will engage with them daily([phone]. Ask to speak to a tech) about [...] no head imaging has been performed at [facility]. -CT Head w/o contrast -Imaging showed [...] Order Questions: Select Supplement: Boost-1 kcal/ml supplement ([facility] only) Code Status: Full Code Signed: [...] reviewed the documentation by the medical steam drier tender and agree as documented. Any additions [...] for C on Sunday (10/13) - EGD completed. Has [...] another specialty or practice, other licensed professional (PT/OT/INFRASTRUCTURE SECURITY ARCHITECT/RT), or a non-medical community professional: Nephrology, Hepatology, [...] Strictly monitor urine output No Indication for MEDICAL PRACTITIONERS 3. Not a candidate for terlipressin per [...] Ignacio Queen MD Renal Fellow Pager # [phone] Chief Complaint No chief complaint on file. Reason for Consult Nadiya on CKD Decompensated cirrhosis History of Present Illness Julein Gilbert is a 39 y.o. y/o male [...] hepatorenal syndrome.` Patient came from [facility], paracentesis was performed yesterday on 10/05? Fluid [...] PHOS -- < > 3.5 3.4 3.3 TQLE70R 7.1* -- -- -- -- < > = values in this interval not displayed. Lab Results Component Value Date IRON 81 10/08/2024 TIBC SEE COMMENT 10/08/2024 FERRITIN 706.9 (H) 10/08/2024 No results found for: [id number] , FOLATE Lab Results Component Value Date [...] CRUR No results found for: MICROALBUR , [id number] In addition to the above an extensive [...] 3.3 10/10/2024 Lab Results Component Value Date XFRS76S 7.1 (L) 10/08/2024 PLAN Continue IV albumin [...] AM Colten Huertas MD, DELIA, KISHOR, FNKF technician automatic Div. of Nephrology [facility] E-mail: [email or web address] This note was completely edited, [...] to follow pt while pt is at [facility]. * Jodi Ortiz PharmD - 10/10/2024 10:27 AM EDT Clinical Pharmacy Service: Vancomycin Consult Progress Note Patient has been transitioned off of vancomycin therapy per team notes and orders. Pharmacy will sign-off at this time, please do not hesitate to consult again as needs arise. Thank you for involving pharmacy in the care of this patient. Jodi Ortiz PharmD Clinical Helicopter Officer, Internal Medicine Preferred contact: [employer] Clinical Aqogivq-Tn-Ibzu Pager: [phone] October 10, 2024 10:27 AM Laboratory Data [...] 10/07/2024 10:50 PM Giardia Cryptosporidium Antigens Final [id number] 10/07/2024 10:50 PM Ova and Parasite Comprehensive w/ Giardia/Crypto Final [id number] Feces 10/06/2024 1:04 AM #2 Blood culture-Peripheral site 2 Preliminary [id number] Peripheral 10/06/2024 1:04 AM #1 Blood culture-Peripheral site 1 Preliminary [id number] Peripheral Pharmacokinetics Lab Results (Last 7 days) Today 0523 Yesterday 04510/08 0536 [facility] Rdm 16.4 11.0 16.0 * Gerri Peterson MD - 10/10/2024 10:09 AM EDT [facility] PROGRESS NOTE Name: uJlien Gilbert CSN: [id number] Consulted by: Fouzia Rene MD Reason for Consult: Decompensated Cirrhosis History of Present Illness: Julien Gilbert is a 39 y.o. 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 Per OSH reports, ascitic fluid cultures [...] from the original note were not included. [facility] Clinical Pharmacy Service: Vancomycin Monitoring Consult [...] in sodium chloride 0.9 % 250 mL Hihx8Rgk (Completed) 1,500 mg Once 10/09/2024 10/09/2024 Admin Instructions: Contact pharmacy if there is a question/concern of whether vancomycin should begiven based on serum drug levels. Use Irir2Tfb Adapter - Mix Thoroughly Before Administration Route: Intravenous vancomycin (VANCOCIN) 1,500 mg in sodium chloride 0.9 % 250 mL Ldnd2Czp 1,500 mg Once 10/10/2024 10/11/2024 Admin Instructions: Contact pharmacy if there is a question/concern of whether vancomycin should begiven based on serum drug levels. Use Lacs7Wzl Adapter - Mix Thoroughly Before Administration Route: [...] in sodium chloride 0.9 % 250 mL Kspi8Ryp 1,500 mg 166.7 mL/hr 10/08/24 1259 New Bag vancomycin (VANCOCIN) 1,000 mg in sodium chloride 0.9 % 250 mL Lerb1Uip 1,000 mg 250 mL/hr --Objective Data-- Vitals: [...] 53 53 54 Creatinine 2.85 2.89 3.04 [place] body weight: 86.8 kg (191 lb 5.7 oz) Adjusted ideal body weight: 99.9 kg (220 lb 3.5 oz) Estimated CrCl: ~35-45 mL/min --Cultures-- Microbiology Results Date and Time Order Name Sensitivity Status Organisms Specimen ID Source 10/07/2024 10:50 PM Giardia Cryptosporidium Antigens Final [id number] 10/07/2024 10:50 PM Ova and Parasite Comprehensive w/ Giardia/Crypto Final [id number] Feces 10/06/2024 1:04 AM #2 Blood culture-Peripheral site 2 Preliminary [id number] Peripheral 10/06/2024 1:04 AM #1 Blood culture-Peripheral site 1 Preliminary [id number] Peripheral --Vancomycin Concentrations-- Lab Results (Last 7 [...] for the consult. Jodi Ortiz PharmD Clinical Helicopter Officer, Internal Medicine Preferred contact: [employer] Clinical Kuftheo-Pv-Daqc Pager: [phone] October 10, 2024 9:13 AM * Eileen Schroeder MD, PhD - 10/10/2024 8:17 AM EDT Department of Internal Medicine Daily Progress Note Chief Complaint / Reason for Follow-Up Julien Gilbert is a 39 y.o. male on hospital day 5. The principal reason for today's follow up visit is Acute kidney injury superimposed on CKD ([facility]). KARENYeniMERLINE Pt was very conversational today. A&O x [...] at 10/08/2024 1:12 PM EDT US Duplex Xqz-Dzo-Tmlbzyy Comp Final Result IMPRESSION: ABDOMEN 1. Cirrhotic [...] from outside facility. Will engage with them daily([phone]. Ask to speak to a tech) about [...] no head imaging has been performed at [facility]. -CT Head w/o contrast -Imaging showed [...] Order Questions: Select Supplement: Boost-1 kcal/ml supplement ([facility] only) Code Status: Full Code Signed: [...] reviewed the documentation by the medical steam drier tender and agree as documented. Any additions or clarifications are listed below. Daily plan was discussed with patient at bedside and questions addressed. Patient ID: Julien Gilbert is a 39 y.o. male currently admitted for Acute kidney injury superimposed on CKD ([facility]) Supplemental History/ ROS: No acute [...] injury superimposed on CKD ([facility]) Active Problems: Spontaneous Bacterial Peritonitis ([facility]): Cultures from OSH were reported as [...] and rifaximin Decompensated cirrhosis ([facility]): Appreciate hepatology consult. He has [...] IR. NADIYA (acute kidney injury) on CKD ([facility]): Appreciate nephrology consult. Likely due to [...] another specialty or practice, other licensed professional (PT/OT/INFRASTRUCTURE SECURITY ARCHITECT/RT), or a non-medical community professional: Nephrology, Hepatology, [...] Strictly monitor urine output No Indication for MEDICAL PRACTITIONERS Not a candidate for terlipressin per liver due to HE, liver and kidney failure, on midodrine tid. Considering para today, cardiac workup pre txp Liver transplant workup per GI/ Primary team, considering for SLK, seen by renal transplant team Thank you for allowing us to participate in this patient's care. Discussed with Consult Staff. Ignacio Queen MD Renal Fellow Pager # [phone] Chief Complaint No chief complaint on file. [...] hepatorenal syndrome.` Patient came from [facility], paracentesis was performed yesterday on 10/05? Fluid [...] 9.0 9.3 PHOS -- 3.5 3.5 3.4 ZFFX13N 7.1* -- -- -- Lab Results Component Value Date IRON 81 10/08/2024 TIBC SEE COMMENT 10/08/2024 FERRITIN 706.9 (H) 10/08/2024 No results found for: [id number] , FOLATE Lab Results Component Value Date [...] CRUR No results found for: MICROALBUR , [id number] In addition to the above an extensive [...] 3.4 10/09/2024 Lab Results Component Value Date PHNJ75G 7.1 (L) 10/08/2024 PLAN Continue IV albumin [...] PM Colten Huertas MD, KISHOR LIN, CATHYF technician automatic Div. of Nephrology [facility] E-mail: [email or web address] This note was completely edited, [...] Peterson MD - 10/09/2024 1:07 PM EDT [facility] PROGRESS NOTE Name: Julien Gilbert CSN: [id number] Consulted by: Fouzia Rene MD Reason for [...] nucleated cells, <2000 RBCs 10% Polynuclear, 90% [place] nuc. Fluid cultures reportedly grew gram + [...] from the original note were not included. [facility] Clinical Pharmacy Service: Vancomycin Monitoring Consult [...] in sodium chloride 0.9 % 250 mL Sfcn5Gux (Completed) 1,000 mg Once 10/08/2024 10/08/2024 Admin Instructions: Contact pharmacy if there is a question/concern of whether vancomycin should begiven based on serum drug levels. Use Oykg1Njb Adapter - Mix Thoroughly Before Administration Route: Intravenous vancomycin (VANCOCIN) 1,500 mg in sodium chloride 0.9 % 250 mL Weiz4Usz 1,500 mg Once 10/09/2024 10/10/2024 Admin Instructions: Contact pharmacy if there is a question/concern of whether vancomycin should begiven based on serum drug levels. Use Ckkw1Lgl Adapter - Mix Thoroughly Before Administration Route: [...] in sodium chloride 0.9 % 250 mL Hgil7Zll 1,000 mg 250 mL/hr 10/06/24 1413 New [...] 10/07/2024 10:50 PM Giardia Cryptosporidium Antigens Final [id number] 10/07/2024 10:50 PM Ova and Parasite Comprehensive w/ Giardia/Crypto Final [id number] Feces 10/06/2024 1:04 AM #2 Blood culture-Peripheral site 2 Preliminary [id number] Peripheral 10/06/2024 1:04 AM #1 Blood culture-Peripheral site 1 Preliminary [id number] Peripheral --Vancomycin Concentrations-- Lab Results (Last 7 [...] for the consult. Jodi Ortiz PharmD Clinical Helicopter Officer, Internal Medicine Preferred contact: [employer] Clinical Sdawacy-Tj-Sbfs Pager: [phone] October 09, 2024 8:29 AM * Eileen Schroeder MD, PhD - 10/09/2024 8:00 AM EDT Department of Internal Medicine Daily Progress Note Chief Complaint / Reason for Follow-Up Julien Gilbert is a 39 y.o. male on hospital day 4. The principal reason for today's follow up visit is Acute kidney injury superimposed on CKD ([facility]). DREW and father at bedside Pt [...] at 10/08/2024 1:12 PM EDT US Duplex Sle-Ryw-Ulnqcto Comp Final Result IMPRESSION: ABDOMEN 1. Cirrhotic [...] Negative portable chest. Report Verified by: Eduardo Frakns MD at 10/06/2024 2:33 AM EDT DXA [...] from outside facility. Will engage with them daily([phone]. Ask to speak to a tech) about [...] no head imaging has been performed at [facility]. -CT Head w/o contrast -Imaging showed [...] Order Questions: Select Supplement: Boost-1 kcal/ml supplement ([facility] only) Code Status: Full Code Signed: [...] reviewed the documentation by the medical steam drier tender and agree as documented. Any additions or clarifications are listed below. Daily plan was discussed with patient at bedside and questions addressed. Patient ID: Julien Gilbert is a 39 y.o. male currently admitted for Acute kidney injury superimposed on CKD ([facility]) Supplemental History/ ROS: No acute [...] injury superimposed on CKD ([facility]) Active Problems: Anemia: S/p 1 unit PRBC from yesterday. Hemoglobin responded appropriately and remained stable. Will continue to monitor. Metabolic encephalopathy: Mostly resolved. Likely related to combination of hepatic, metabolic, andpossibly infectious insults. - Continue home lactulose and rifaximin Spontaneous Bacterial Peritonitis ([facility]): Cultures from OSH are growing gram- positive organisms.We continue to await speciation. He remains afebrile and vital signs have been stable. - Continue vancomycin and ceftriaxone for now. - Will follow-up on speciation and sensitivities. Decompensated cirrhosis ([facility]): Appreciate hepatology consult. He has [...] kidney injury) on CKD ([facility]): Appreciate nephrology consult. Likely due to hepatorenal syndrome. Now s/p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 bepicked up for a lyft. 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. Bedside report received from test lab technician, RN. Pt placed on telemetry, serial vital signs set up. Access site: RRA. Site is soft, no bleeding/hematoma, [address] Sheath removed in test lab technician at 1402, TR band placed [...] EDT Pt arrived with and admitted into [facility] from [facility] with AMS. Orestest paged to the bedside at this time. [...] Patient will remain free of falls Goal: [place] Precautions Outcome: Progressing Problem: Daily Care Goal: Daily care needs are met Description: Assess and monitor ability to perform self care and identify potential discharge needs. Outcome: Progressing * Care Coordination - Kandy Fuentes - 10/16/2024 11:33 AM EDT [facility] Case Management/Social Work Department Progress Note [...] disease. PCP: Enedina Mcguire NP Home Pharmacy: [facility] [address] [place] [address], [facility] [address] [address] [facility] [address] [facility] [id number] Medical Insurance Coverage: Payor: [employer] / Plan: [facility] / Product Type: *No Producttype* / Other Pertinent Information RN/CM received update from team and completed chart review. Pt is not medically ready for discharge. Nephrology to see today. Here for pre-transplant work up. Discharge Plan Anticipated discharge plan: home Anticipated discharge date: 10/17/24 CM/SW will continue to follow and remain available for discharge planning needs. [facility] * Plan of Care - [...] Patient will remain free of falls Goal: [place] Precautions Outcome: Progressing Problem: Daily Care [...] Patient will remain free of falls Goal: [place] Precautions Outcome: Progressing Problem: Daily Care [...] Kandy Fuentes - 10/15/2024 2:26 PM EDT [facility] Case Management/Social Work Department Progress Note Patient Information Patient Name: Julien Gilbert Hospital day: 10 Inpatient/Observation: Inpatient Level of Care: blue Admit date: 10/05/2024 Admission diagnosis: AMS PMH: has a past medical history of Alcoholic cirrhosis of liver ([facility]), Esophageal varices ([facility]), Hepatorenal syndrome ([facility]), Hypertension, Other hyperlipidemia (07/26/2024), Renal cell carcinoma ([facility]), Thrombocytopenia ([facility]), and Thyroid disease. PCP: Enedina Mcguire NP Home Pharmacy: [facility] [address] [place], [place] [address] [facility] [address] [address] [facility] [address] [facility] [address] Medical Insurance Coverage: Payor: [facility] / Plan: [facility] / Product Type: *No Producttype* / Other Pertinent Information RN/CM received update from team and completed chart review. Pt is not medically ready for discharge. Nephrology following. Watching creatinine levels. Had left heart cath yesterday. Discharge Plan Anticipated discharge plan: home Anticipated discharge date: 10/16/24 CM/SW will continue to follow and remain available for discharge planning needs. [facility] * Plan of Care - [...] Patient will remain free of falls Goal: [place] Precautions Outcome: Progressing Problem: Daily Care [...] Kandy Fuentes - 10/14/2024 11:10 AM EDT [facility] Case Management/Social Work Department Progress Note Patient Information Patient Name: Julien Gilbert Hospital day: 9 Inpatient/Observation: Inpatient Level of Care: blue Admit date: 10/05/2024 Admission diagnosis: AMS PMH: has a past medical history of Alcoholic cirrhosis of liver (CMS-HCC), Esophageal varices ([facility]), Hepatorenal syndrome ([facility]), Hypertension, Other hyperlipidemia (07/26/2024), Renal cell carcinoma (CMS-HCC), Thrombocytopenia ([facility]), and Thyroid disease. PCP: Enedina Mcguire NP Home Pharmacy: [facility] [address] [place] [address] [facility] [address] [facility] [id number] Medical Insurance Coverage: Payor: [facility] / Plan: [facility] / Product Type: *No Producttype* / [...] Kandy Fuentes - 10/13/2024 11:53 AM EDT [facility] Case Management/Social Work Department Progress Note Patient Information Patient Name: Julien Gilbert Hospital day: 8 Inpatient/Observation: Inpatient Level of Care: blue Admit date: 10/05/2024 Admission diagnosis: AMS PMH: has a past medical history of Alcoholic cirrhosis of liver (CMS-HCC), Alcoholic hepatitis, Esophageal varices (CMS-HCC), Hepatorenal syndrome (CMS- HCC), Hypertension, Other hyperlipidemia (07/26/2024), Renal cell carcinoma (CMS-HCC), Thrombocytopenia ([facility]), and Thyroid disease. PCP: Enedina Mcguire NP Home Pharmacy: [facility] [address] [place] [address], [facility] [address] [address] [facility] [address] [facility] [id number] Medical Insurance Coverage: Payor: [facility] / Plan: [facility] / Product Type: *No Producttype* / Other Pertinent Information RN/TAYLOR received update from team and completed chart review. Pt is not medically ready for discharge. Patient is going to have left heart cath today. Discharge Plan Anticipated discharge plan: home Anticipated discharge date: 10/14/24 CM/SW will continue to follow and remain available for discharge planning needs. [facility] * Plan of Care - [...] Kandy Fuentes - 10/10/2024 12:00 PM EDT [facility] Case Management/Social Work Department Progress Note [...] disease. PCP: Enedina Mcguire NP Home Pharmacy: [facility] [address] [place], [place] [address] [address] [facility] [address] [facility] [id number] Medical Insurance Coverage: Payor: [facility] / Plan: [facility] / Product Type: *No Producttype* / [...] Patient will remain free of falls Goal: [place] Precautions Outcome: Progressing Problem: Daily Care [...] Patient will remain free of falls Goal: [place] Precautions Outcome: Progressing Problem: Daily Care [...] Kandy Fuentes - 10/09/2024 12:05 PM EDT [facility] Case Management/Social Work Department Progress Note [...] disease. PCP: Enedina Mcguire NP Home Pharmacy: [facility] [address] [place], [facility] [address] [address] [facility] [address] [place] [address] [facility] [address] Medical Insurance Coverage: Payor: [facility] / Plan: [facility] / Product Type: *No Producttype* / [...] Kandy Fuentes - 10/08/2024 3:41 PM EDT [facility] Case Management/Social Work Department Progress Note Patient Information Patient Name: Julien Gilbert Hospital day: 3 Inpatient/Observation: Inpatient Level of Care: blue Admit date: 10/05/2024 Admission diagnosis: AMS PMH: has a past medical history of Alcoholic cirrhosis of liver (CMS-HCC), Alcoholic hepatitis, Esophageal varices (CMS-HCC), Hepatorenal syndrome (CMS- HCC), Hypertension, Other hyperlipidemia (07/26/2024), Renal cell carcinoma (CMS-HCC), Thrombocytopenia ([facility]), and Thyroid disease. PCP: Enedina Mcguire NP Home Pharmacy: [facility] [address] [place] [address] [facility] [address] [facility] [address] Medical Insurance Coverage: Payor: [facility] / Plan: [facility] / Product Type: *No Producttype* / [...] Kandy Fuentes - 10/07/2024 3:22 PM EDT [facility] Case Management/Social Work Department Progress Note Patient Information Patient Name: Julien Gilbert Hospital day: 2 Inpatient/Observation: Inpatient Level of Care: blue Admit date: 10/05/2024 Admission diagnosis: AMS PMH: has a past medical history of Alcoholic cirrhosis of liver (CMS-HCC), Alcoholic hepatitis, Esophageal varices (CMS-HCC), Hepatorenal syndrome (CMS- HCC), Hypertension, Other hyperlipidemia (07/26/2024), Renal cell carcinoma (CMS-HCC), Thrombocytopenia ([facility]), and Thyroid disease. PCP: Enedina Mcguire NP Home Pharmacy: [facility] [address] [place] [address] [facility] [address] [facility] [address] Medical Insurance Coverage: Payor: [facility] / Plan: [facility] / Product Type: *No Producttype* / [...] Patient will remain free of falls Goal: [place] Precautions Outcome: Progressing Problem: Daily Care [...] 12/05/2024 8:01 AM EDT Hospital Encounter [facility] ENDOSCOPY [address] [place] [address] Chris Orosco MD [address] [place] [phone] 12/05/2024 8:01 AM EDT - 12/05/2024 8:31 AM EDT Surgery [facility] ENDOSCOPY [address] [place] [address] Chris Orosco MD [address] [place] [phone] EGD Scheduled Procedures Name Priority Associated Diagnoses Date/Ti me EGD Cirrhosis of liver with ascites, unspecified hepatic cirrhosis type ([facility]) 12/05/2024 8:01 AM EDT documented [...] EDT AMMONIA Routine 10/13/2024 5:35 AM EDT CAIRSA RHYTHM STRIP - SCAN 10/13/19 10:30 PM [...] IGG ANTIBODY Routine 10/07/2024 6:37 PM EDT [id number] (AAT) QUANTITATION & MUTATION Routine 10/07/2024 6:37 [...] Routine 10/07/2024 6:19 PM EDT US DUPLEX [id number] COMPLETE Routine 10/07/2024 3:48 PM EDT US [...] 10/06/2024 4:01 AM EDT UPPER RESPIRATORY VIRAL/BACTERIAL PANEL-CARDROOM SUPERVISOR ONLY Routine 10/06/2024 3:12 AM EDT XR [...] - 146 mmol/L 10/17/2024 7:02 AM T [facility] Potassium 3.4(L) 3.5 - 5.3 mmol/L 10/17/2024 7:02 AM [facility] Chloride 104 98 - 110 mmol/L 10/17/2024 7:02 AM EDT [facility] CO2 18(L) 21 - 33 mmol/L 10/17/2024 7:02 AM [facility] Anion Gap 11 3 - 16 mmol/L 10/17/2024 7:02 AM [facility] BUN 54(H) 7 - 25 mg/dL 10/17/2024 7:02 AM [facility] Creatinine 2.88(H) 0.60 - 1.30 mg/dL 10/17/2024 7:02 AM [facility] Glucose 127(H) 70 - 100 mg/dL 10/17/2024 7:02 AM [facility] Calcium 8.2(L) 8.6 - 10.3 mg/dL 10/17/2024 7:02 AM [facility] Phosphorus 4.5 2.1 - 4.7 mg/dL 10/17/2024 7:02 AM [facility] Albumin 3.1(L) 3.5 - 5.7 g/dL 10/17/2024 7:02 AM [facility] Osmolality, Calculated 292 278 - 305 mOsm/kg 10/17/2024 7:02 AM [facility] EGFR 27 10/17/2024 7:02 AM [facility] Comment:As of [...] M, Olivia DC, Emerita ND, Madelyn CA, Plating Inspector [place], et al. A Unifying Approach for GFR Estimation: Recommendations of the NKF-ASN Task Force on Reassessing the inclusion of Race in Diagnosing Kidney Disease. Am J Kidney Dis. 2020. Plasma 10/17/2024 5:48 AM EDT 10/17/2024 6:32 AM EDT Eileen Schroeder MD, PhD LAB BLOOD ORDERABLES Final Result Performing Organization Address [facility] de Phone Number [facility] [address] [facility]. [address] * (ABNORMAL) Protime-INR (10/16/2024 6:31 AM EDT) Protime 22.5(H) 12.1 - 15.1 seconds 10/16/2024 8:04 AM EDT [facility] INR 1.9(H) 0.9 - 1.1 10/16/2024 8:04 AM EDT [facility] Comment: RECOMMENDED THERAPEUTIC RANGES USING INR : Stable oral anticoagulant therapy: 2.0 - 3.0 Mechanical prosthetic heart valve: 2.5 - 3.5 Recurrent acute myocardial infarction: 2.5 - 3.5 Plasma 10/16/2024 6:31 AM EDT 10/16/2024 6:56 AM EDT Eileen Schroeder MD, PhD LAB BLOOD ORDERABLES Final Result Performing Organization Address [facility] de Phone Number [facility] [address] [facility]. [address] * (ABNORMAL) Hepatic Function Panel (10/16/2024 6:31 AM EDT) Total Bilirubin 7.6(H) 0.0 - 1.5 mg/dL 10/16/2024 7:24 AM EDT [facility] Bilirubin, Direct 3.97(H) 0.00 - 0.40 mg/dL 10/16/2024 7:24 AM EDT [facility] AST 45(H) 13 - 39 U/L 10/16/2024 7:24 AM EDT [facility] ALT 23 7 - 52 U/L 10/16/2024 7:24 AM EDT [facility] Alkaline Phosphatase 137(H) 36 - 125 U/L 10/16/2024 7:24 AM EDT [facility] Total Protein 5.1(L) 6.4 - 8.9 g/dL 10/16/2024 7:24 AM EDT [facility] Albumin 3.4(L) 3.5 - 5.7 g/dL 10/16/2024 7:24 AM EDT [facility] Bilirubin, Indirect 3.63(H) 0.00 - 1.10 mg/dL 10/16/2024 7:24 AM EDT [facility] Plasma 10/16/2024 6:31 AM EDT 10/16/2024 6:56 AM EDT us Eileen Schroeder MD, PhD LAB BLOOD ORDERABLES Final Result Performing Organization Address [facility]/ZIP Co de Phone Number [facility] [address] * Magnesium (10/16/2024 6:31 AM EDT) Magnesium 2.1 1.5 - 2.5 mg/dL 10/16/2024 7:24 AM EDT [facility] Plasma 10/16/2024 6:31 AM EDT 10/16/2024 6:56 AM EDT us Eileen Schroeder MD, PhD LAB BLOOD ORDERABLES Final Result Performing Organization Address [facility]/ZIP Co de Phone Number [facility] [address] * (ABNORMAL) Renal Function Panel w/EGFR (10/16/2024 6:31 AM EDT) Sodium 135 133 - 146 mmol/L 10/16/2024 7:24 AM EDT [facility] Potassium 3.7 3.5 - 5.3 mmol/L 10/16/2024 7:24 AM EDT [facility] Chloride 106 98 - 110 mmol/L 10/16/2024 7:24 AM EDT [facility] CO2 16(L) 21 - 33 mmol/L 10/16/2024 7:24 AM EDT [facility] Anion Gap 13 3 - 16 mmol/L 10/16/2024 7:24 AM EDT [facility] BUN 55(H) 7 - 25 mg/dL 10/16/2024 7:24 AM EDT [facility] Creatinine 3.20(H) 0.60 - 1.30 mg/dL 10/16/2024 7:24 AM EDT [facility] Glucose 121(H) 70 - 100 mg/dL 10/16/2024 7:24 AM EDT [facility] Calcium 8.5(L) 8.6 - 10.3 mg/dL 10/16/2024 7:24 AM EDT [facility] Phosphorus 4.2 2.1 - 4.7 mg/dL 10/16/2024 7:24 AM EDT [facility] Albumin 3.4(L) 3.5 - 5.7 g/dL 10/16/2024 7:24 AM EDT [facility] Osmolality, Calculated 296 278 - 305 mOsm/kg 10/16/2024 7:24 AM EDT [facility] EGFR 24 10/16/2024 7:24 AM EDT [facility] Comment:As of 2021, [...] MD, PhD LAB BLOOD ORDERABLES Final Result [facility] [address] [place] [address], [facility] * (ABNORMAL) CBC (10/16/2024 6:31 AM EDT) WBC 5.8 3.8 - 10.8 10E3/uL 10/16/2024 8:00 AM EDT [facility] RBC 2.16(L) 4.20 - 5.80 10E6/uL 10/16/2024 8:00 AM EDT [facility] Hemoglobin 7.7(L) 13.2 - 17.1 g/dL 10/16/2024 8:00 AM EDT [facility] Hematocrit 22.1(L) 38.5 - 50.0 % 10/16/2024 8:00 AM EDT [facility] MCV 102.3(H) 80.0 - 100.0 fL 10/16/2024 8:00 AM EDT [facility] MCH 35.7(H) 27.0 - 33.0 pg 10/16/2024 8:00 AM EDT [facility] MCHC 34.9 32.0 - 36.0 g/dL 10/16/2024 8:00 AM EDT [facility] RDW 17.7(H) 11.0 - 15.0 % 10/16/2024 8:00 AM EDT [facility] Platelets 43(L) 140 - 400 10E3/uL 10/16/2024 8:00 AM EDT [facility] Comment: Specimen checked for clots. None detected. Slide Reviewed for PLT Clumps. None Seen. Platelet Estimate Decreased 10/16/2024 8:00 AM EDT [facility] MPV 8.6 7.5 - 11.5 fL 10/16/2024 8:00 AM EDT [facility] Whole Blood 10/16/2024 6:31 AM EDT 10/16/2024 6:57 AM EDT Narrative [facility] - 10/16/2024 8:00 AM EDT Peripheral blood smear was scanned per review criteria approved by the laboratory medical office representative. us Eileen Schroeder MD, PhD LAB BLOOD ORDERABLES Final Result [facility] [address] [place] [address], [facility] * CARISA Rhythm Strip - Scan (10/15/2024 8:02 PM EDT) us Scanning Uchhim SCAN DOCS - NO RESULTS Final Res ult * CARISA Rhythm Strip - Scan (10/15/2024 8:02 PM EDT) us Scanning Uchhim SCAN DOCS - NO RESULTS Final Res ult * Prepare Platelets, leukoreduced, 1 Units (10/15/2024 6:16 AM EDT) Product Code G0652N11 [facility] Unit Number [id number] [facility] Dispense Status Presumed Transfused_PT [facility] Blood Expiration Date [id number] [facility] Coding System [id number] [facility] Blood Bank Product Eleazar Nguyễn MD BLOOD BANK PRODUCT ORDE RABJOSE R Final Result Performing Organization Address [facility] Co de Phone Number [facility] * Prepare Fresh Frozen Plasma, 1 Units (10/15/2024 6:15 AM EDT) Product Code E1095L40 [facility] Unit Number [id number] [facility] Dispense Status Presumed Transfused_PT [facility] Blood Expiration Date 889537091577 [facility] Coding System [id number] [facility] Blood Bank Product Eleazar Nguyễn MD BLOOD BANK PRODUCT ORDE RABLES Final Result [facility] * (ABNORMAL) Protime-INR (10/15/2024 [...] BLOOD ORDERABLES Final Result [facility] [address] [place] [address], [facility] * (ABNORMAL) Hepatic Function Panel (10/15/2024 6:08 AM EDT) Total Bilirubin 7.1(H) 0.0 - 1.5 mg/dL 10/15/2024 6:45 AM EDT [facility] Bilirubin, Direct 3.77(H) 0.00 - 0.40 mg/dL 10/15/2024 6:45 AM EDT [facility] AST 39 13 - 39 U/L 10/15/2024 6:45 AM EDT [facility] ALT 22 7 - 52 U/L 10/15/2024 6:45 AM EDT [facility] Alkaline Phosphatase 115 36 - 125 U/L 10/15/2024 6:45 AM EDT [facility] Total Protein 4.8(L) 6.4 - 8.9 g/dL 10/15/2024 6:45 AM EDT [facility] Albumin 3.2(L) 3.5 - 5.7 g/dL 10/15/2024 6:45 AM EDT [facility] Bilirubin, Indirect 3.33(H) 0.00 - 1.10 mg/dL 10/15/2024 6:45 AM EDT [facility] Plasma 10/15/2024 6:08 AM EDT 10/15/2024 6:17 AM EDT us Eileen Schroeder MD, PhD LAB BLOOD ORDERABLES Final Result Performing Organization Address City/[facility]/ZIP Co de Phone Number [facility] [address] * Magnesium (10/15/2024 6:08 AM EDT) Magnesium 1.8 1.5 - 2.5 mg/dL 10/15/2024 6:45 AM EDT [facility] Plasma 10/15/2024 6:08 AM EDT 10/15/2024 6:17 AM EDT us Eileen Schroeder MD, PhD LAB BLOOD ORDERABLES Final Result Performing Organization Address [facility] de Phone Number [facility] [address] * (ABNORMAL) Renal Function Panel w/EGFR (10/15/2024 6:08 AM EDT) Sodium 135 133 - 146 mmol/L 10/15/2024 6:45 AM EDT [facility] Potassium 3.4(L) 3.5 - 5.3 mmol/L 10/15/2024 6:45 AM EDT [facility] Chloride 107 98 - 110 mmol/L 10/15/2024 6:45 AM EDT [facility] CO2 17(L) 21 - 33 mmol/L 10/15/2024 6:45 AM EDT [facility] Anion Gap 11 3 - 16 mmol/L 10/15/2024 6:45 AM EDT [facility] BUN 55(H) 7 - 25 mg/dL 10/15/2024 6:45 AM EDT [facility] Creatinine 2.88(H) 0.60 - 1.30 mg/dL 10/15/2024 6:45 AM EDT [facility] Glucose 125(H) 70 - 100 mg/dL 10/15/2024 6:45 AM EDT [facility] Calcium 8.4(L) 8.6 - 10.3 mg/dL 10/15/2024 6:45 AM EDT [facility] Phosphorus 3.9 2.1 - 4.7 mg/dL 10/15/2024 6:45 AM EDT [facility] Albumin 3.2(L) 3.5 - 5.7 g/dL 10/15/2024 6:45 AM EDT [facility] Osmolality, Calculated 297 278 - 305 mOsm/kg 10/15/2024 6:45 AM EDT [facility] EGFR 27 10/15/2024 6:45 AM EDT [facility] Comment:As of 2021, [...] MD, PhD LAB BLOOD ORDERABLES Final Result [facility] [address] [address] * (ABNORMAL) CBC (10/15/2024 6:08 AM EDT) WBC 4.6 3.8 - 10.8 10E3/uL 10/15/2024 6:51 AM EDT [facility] RBC 1.94(L) 4.20 - 5.80 10E6/uL 10/15/2024 6:51 AM EDT [facility] Hemoglobin 7.1(L) 13.2 - 17.1 g/dL 10/15/2024 6:51 AM EDT [facility] Hematocrit 19.6(L) 38.5 - 50.0 % 10/15/2024 6:51 AM EDT [facility] MCV 100.8(H) 80.0 - 100.0 fL 10/15/2024 6:51 AM EDT [facility] MCH 36.7(H) 27.0 - 33.0 pg 10/15/2024 6:51 AM EDT [facility] MCHC 36.4(H) 32.0 - 36.0 g/dL 10/15/2024 6:51 AM EDT [facility] RDW 17.3(H) 11.0 - 15.0 % 10/15/2024 6:51 AM EDT [facility] Platelets 34(L) 140 - 400 10E3/uL 10/15/2024 6:51 AM EDT [facility] Comment:Specimen checked for clots. None detected. MPV 8.7 7.5 - 11.5 fL 10/15/2024 6:51 AM EDT [facility] Whole Blood 10/15/2024 6:08 AM EDT 10/15/2024 6:17 AM EDT us Eileen Schroeder MD, PhD LAB BLOOD ORDERABLES Final Result Performing Organization Address City/State/[facility] Co de Phone Number [facility] [address] * PRA-HLA Ab Screen (Cytotoxic) (10/15/2024 6:08 AM EDT) [facility] The request and specimen(s) for this test have been received and transported to the [facility] at [address] [place] [address]. The [facility] will report results directly to the client. 10/15/2024 6:42 AM EDT [facility] Comment:The request and spec imen(s) for this test have been received and transported to the [facility] at [address] [place] [address]. The [facility] will report results directly to the client. Serum 10/15/2024 6:08 AM EDT 10/15/2024 6:42 AM EDT us Cosmo Pacheco MD LAB BLOOD ORDERABLES Final Resul t [facility] [address] [facility] [place] [address], [facility] * LEFT HEART CATH (10/14/2024 2:09 PM EDT) 10/14/2024 11:4 7 AM EDT Narrative [facility] - 10/14/2024 9:27 PM EDT *[facility]* Cardiac Chipper Operator [address] [address] CATHETERIZATION LAB STUDY Patient: Julien Gilbert Age: [...] manner. 3. Right radial artery access. A [id number] Glidesheath - Slender - .021 sheath was [...] + + !LV pressure s/d, ed !, dP/rx=3458wv Hg/s! + + + !Aortic pressure s/d (m)!106/58 (75) ! + + + ATTESTATION: Dr. Matta was present for the entire procedure. Dr. Jay Quan was the initial author of this report. Prepared and electronically signed by Irving Matta MD [id number] Procedure Note Irving Matta MD - 10/14/2024 *[facility]* Cardiac Chipper Operator [address] [place] [address] CATHETERIZATION LAB STUDY Patient: Julien Gilbert Age: [...] manner. 3. Right radial artery access. A [id number] Glidesheath - Slender - .021sheath was advanced [...] complications. Contrast: Omnipaque 350 25ml (total dose). [id number] 125ml (wasted). Radiation: Fluoroscopy time: 15min. Total [...] + !LV pressure s/d, ed !112/1, 22, dP/xc=7840dh Hg/s! + + + !Aortic pressure s/d (m)!106/58 (75) ! + + + ATTESTATION: Dr. Matta was present for the entire procedure. Dr. Jay Quan wasthe initial author of this report. Prepared and electronically signed by Irving Matta MD [id number] [place] [id number] Final Result Performing Organization Address [facility] Co de Phone Number [facility] * Transfuse Fresh Frozen Plasma Transfusion Rate: Per dept routine (10/14/2024 2:08 PM EDT) us Eleazar Nguyễn MD NURSING TREATMENT ORDER PAL - BLOOD ADMIN Final Result Performing Organization Address [facility]/ZIP Co de Phone Number EXTERNAL * Transfuse Fresh Frozen Plasma Transfusion Rate: Per dept routine, 1 Units (10/14/2024 2:08 PM EDT) us Eleazar Nguyễn MD NURSING TREATMENT ORDER PAL - BLOOD ADMIN Final Result Performing Organization Address City/[facility]/ZIP Co de Phone Number EXTERNAL * Transfuse Platelets Transfusion Rate: Per dept routine (10/14/2024 12:43 PM EDT) us Eleazar Nguyễn MD NURSING TREATMENT ORDER PAL - BLOOD ADMIN Final Result Performing Organization Address [facility]/ZIP Co de Phone Number EXTERNAL * Transfuse Platelets Transfusion Rate: Per dept routine, 1 Units (10/14/2024 12:43 PM EDT) Eleazar Nguyễn MD NURSING TREATMENT ORDER PAL - BLOOD ADMIN Final Result EXTERNAL * Antibody Screen (10/14/2024 8:21 AM EDT) Antibody Screen Negative 10/14/2024 9:11 AM EDT [facility] Blood 10/14/2024 8:21 AM EDT 10/14/2024 8:33 AM EDT Narrative [facility] - 10/14/2024 9:26 AM EDT Testing performed by [facility] Transfusion Service us Eleazar Nguyễn MD BLOOD BANK TEST ORDERAB LES Final Result Performing Organization Address [facility] Co de Phone Number [facility] [address] [facility]. [address] * ABO/Rh (10/14/2024 8:21 AM EDT) ABO Grouping O 10/14/2024 8:55 AM EDT [facility] Rh Type Positive 10/14/2024 8:55 AM EDT [facility] Blood 10/14/2024 8:21 AM EDT 10/14/2024 8:33 AM EDT Eleazar Nguyễn MD BLOOD BANK TEST ORDERAB LES Final Result Performing Organization Address [facility] Co de Phone Number [facility] [address] [facility]. [address] * (ABNORMAL) Protime-INR (10/14/2024 2:53 AM EDT) Protime 23.8(H) 12.1 - 15.1 seconds 10/14/2024 4:34 AM EDT [facility] INR 2.1(H) 0.9 - 1.1 10/14/2024 4:34 AM EDT [facility] Comment: RECOMMENDED THERAPEUTIC RANGES USING INR : Stable oral anticoagulant therapy: 2.0 - 3.0 Mechanical prosthetic heart valve: 2.5 - 3.5 Recurrent acute myocardial infarction: 2.5 - 3.5 Plasma 10/14/2024 2:53 AM EDT 10/14/2024 4:16 AM EDT us Eileen Schroeder MD, PhD LAB BLOOD ORDERABLES Final Result Performing Organization Address [facility] Co de Phone Number [facility] [address] [facility]. [address] * (ABNORMAL) Hepatic Function Panel (10/14/2024 2:53 AM EDT) Total Bilirubin 7.2(H) 0.0 - 1.5 mg/dL 10/14/2024 4:45 AM EDT [facility] Bilirubin, Direct 3.86(H) 0.00 - 0.40 mg/dL 10/14/2024 4:45 AM EDT [facility] AST 41(H) 13 - 39 U/L 10/14/2024 4:45 AM EDT [facility] ALT 22 7 - 52 U/L 10/14/2024 4:45 AM EDT [facility] Alkaline Phosphatase 119 36 - 125 U/L 10/14/2024 4:45 AM EDT [facility] Total Protein 4.6(L) 6.4 - 8.9 g/dL 10/14/2024 4:45 AM EDT [facility] Albumin 3.3(L) 3.5 - 5.7 g/dL 10/14/2024 4:45 AM EDT [facility] Bilirubin, Indirect 3.34(H) 0.00 - 1.10 mg/dL 10/14/2024 4:45 AM EDT [facility] Plasma 10/14/2024 2:53 AM EDT 10/14/2024 4:16 AM EDT Eileen Schroeder MD, PhD LAB BLOOD ORDERABLES Final Result Performing Organization Address [facility]/ZIP Co de Phone Number [facility] [address] [facility]. [address] * Magnesium (10/14/2024 2:53 AM EDT) Magnesium 1.9 1.5 - 2.5 mg/dL 10/14/2024 4:45 AM EDT [facility] Plasma 10/14/2024 2:53 AM EDT 10/14/2024 4:16 AM EDT Eileen Schroeder MD, PhD LAB BLOOD ORDERABLES Final Result [facility] [address] [place] [address], [facility] * (ABNORMAL) Renal Function Panel w/EGFR (10/14/2024 2:53 AM EDT) Sodium 136 133 - 146 mmol/L 10/14/2024 4:45 AM EDT [facility] Potassium 3.5 3.5 - 5.3 mmol/L 10/14/2024 4:45 AM EDT [facility] Chloride 107 98 - 110 mmol/L 10/14/2024 4:45 AM EDT [facility] CO2 16(L) 21 - 33 mmol/L 10/14/2024 4:45 AM EDT [facility] Anion Gap 13 3 - 16 mmol/L 10/14/2024 4:45 AM EDT [facility] BUN 55(H) 7 - 25 mg/dL 10/14/2024 4:45 AM EDT [facility] Creatinine 3.01(H) 0.60 - 1.30 mg/dL 10/14/2024 4:45 AM EDT [facility] Glucose 95 70 - 100 mg/dL 10/14/2024 4:45 AM EDT [facility] Calcium 8.5(L) 8.6 - 10.3 mg/dL 10/14/2024 4:45 AM EDT [facility] Phosphorus 4.4 2.1 - 4.7 mg/dL 10/14/2024 4:45 AM EDT [facility] Albumin 3.3(L) 3.5 - 5.7 g/dL 10/14/2024 4:45 AM EDT [facility] Osmolality, Calculated 297 278 - 305 mOsm/kg 10/14/2024 4:45 AM EDT [facility] EGFR 26 10/14/2024 4:45 AM EDT [facility] Comment:As of 2021, [...] MD, PhD LAB BLOOD ORDERABLES Final Result [facility] [address] [id number], [facility] * (ABNORMAL) CBC (10/14/2024 2:53 AM EDT) WBC 5.5 3.8 - 10.8 10E3/uL 10/14/2024 5:00 AM EDT [facility] RBC 2.09(L) 4.20 - 5.80 10E6/uL 10/14/2024 5:00 AM EDT [facility] Hemoglobin 7.6(L) 13.2 - 17.1 g/dL 10/14/2024 5:00 AM EDT [facility] Hematocrit 21.3(L) 38.5 - 50.0 % 10/14/2024 5:00 AM EDT [facility] MCV 101.7(H) 80.0 - 100.0 fL 10/14/2024 5:00 AM EDT [facility] MCH 36.3(H) 27.0 - 33.0 pg 10/14/2024 5:00 AM EDT [facility] MCHC 35.7 32.0 - 36.0 g/dL 10/14/2024 5:00 AM EDT [facility] RDW 17.6(H) 11.0 - 15.0 % 10/14/2024 5:00 AM EDT [facility] Platelets 35(L) 140 - 400 10E3/uL 10/14/2024 5:00 AM EDT [facility] Comment: Specimen checked for clots. None detected. Slide Reviewed for PLT Clumps. None Seen. MPV 8.5 7.5 - 11.5 fL 10/14/2024 5:00 AM EDT [facility] Whole Blood 10/14/2024 2:53 AM EDT 10/14/2024 4:17 AM EDT us Eileen Schroeder MD, PhD LAB BLOOD ORDERABLES Final Result Performing Organization Address City/State/[facility] Co de Phone Number [facility] [address] [place] [address], [facility] * Cardiac Cath Documents Scan (10/14/2024 2:06 [...] mL of GADOBUTROL 1 MMOL/ML INTRAVENOUS SYRINGE ([facility]) administered intravenously COMPARISON: CT 09/03/2024. Ultrasound [...] mL of GADOBUTROL 1 MMOL/ML INTRAVENOUS SYRINGE ([facility])administered intravenously COMPARISON: CT 09/03/2024. Ultrasound 10/07/2024. [...] 0.9 - 1.1 10/13/2024 6:12 AM EDT [facility] Comment: RECOMMENDED THERAPEUTIC RANGES USING INR : Stable oral anticoagulant therapy: 2.0 - 3.0 Mechanical prosthetic heart valve: 2.5 - 3.5 Recurrent acute myocardial infarction: 2.5 - 3.5 Plasma 10/13/2024 5:35 AM EDT 10/13/2024 5:52 AM EDT us Eileen Schroeder MD, PhD LAB BLOOD ORDERABLES Final Result Performing Organization Address City/State/[facility] Co de Phone Number [facility] [address] * (ABNORMAL) Hepatic Function Panel (10/13/2024 5:35 AM EDT) Total Bilirubin 6.5(H) 0.0 - 1.5 mg/dL 10/13/2024 6:30 AM EDT [facility] Bilirubin, Direct 3.53(H) 0.00 - 0.40 mg/dL 10/13/2024 6:30 AM EDT [facility] AST 42(H) 13 - 39 U/L 10/13/2024 6:30 AM EDT [facility] ALT 19 7 - 52 U/L 10/13/2024 6:30 AM EDT [facility] Alkaline Phosphatase 108 36 - 125 U/L 10/13/2024 6:30 AM EDT [facility] Total Protein 4.4(L) 6.4 - 8.9 g/dL 10/13/2024 6:30 AM EDT [facility] Albumin 3.1(L) 3.5 - 5.7 g/dL 10/13/2024 6:30 AM EDT [facility] Bilirubin, Indirect 2.97(H) 0.00 - 1.10 mg/dL 10/13/2024 6:30 AM EDT [facility] Plasma 10/13/2024 5:35 AM EDT 10/13/2024 5:52 AM EDT Eileen Schroeder MD, PhD LAB BLOOD ORDERABLES Final Result Performing Organization Address City/[facility]/ZIP Co de Phone Number [facility] [address] * Magnesium (10/13/2024 5:35 AM EDT) Magnesium 2.0 1.5 - 2.5 mg/dL 10/13/2024 6:30 AM EDT [facility] Plasma 10/13/2024 5:35 AM EDT 10/13/2024 5:52 AM EDT Eileen Schroeder MD, PhD LAB BLOOD ORDERABLES Final Result Performing Organization Address [facility] de Phone Number [facility] [address] * (ABNORMAL) Renal Function Panel w/EGFR (10/13/2024 5:35 AM EDT) Sodium 134 133 - 146 mmol/L 10/13/2024 6:30 AM EDT [facility] Potassium 3.7 3.5 - 5.3 mmol/L 10/13/2024 6:30 AM EDT [facility] Chloride 109 98 - 110 mmol/L 10/13/2024 6:30 AM EDT [facility] CO2 14(L) 21 - 33 mmol/L 10/13/2024 6:30 AM EDT [facility] Anion Gap 11 3 - 16 mmol/L 10/13/2024 6:30 AM EDT [facility] BUN 54(H) 7 - 25 mg/dL 10/13/2024 6:30 AM EDT [facility] Creatinine 2.99(H) 0.60 - 1.30 mg/dL 10/13/2024 6:30 AM EDT [facility] Glucose 116(H) 70 - 100 mg/dL 10/13/2024 6:30 AM EDT [facility] Calcium 8.3(L) 8.6 - 10.3 mg/dL 10/13/2024 6:30 AM EDT [facility] Phosphorus 4.5 2.1 - 4.7 mg/dL 10/13/2024 6:30 AM EDT [facility] Albumin 3.1(L) 3.5 - 5.7 g/dL 10/13/2024 6:30 AM EDT [facility] Osmolality, Calculated 294 278 - 305 mOsm/kg 10/13/2024 6:30 AM EDT [facility] EGFR 26 10/13/2024 6:30 AM EDT [facility] Comment:As of 2021, [...] MD, PhD LAB BLOOD ORDERABLES Final Result [facility] [address] [place] [address], [facility] * (ABNORMAL) CBC (10/13/2024 5:35 AM EDT) WBC 4.7 3.8 - 10.8 10E3/uL 10/13/2024 6:22 AM EDT [facility] RBC 2.06(L) 4.20 - 5.80 10E6/uL 10/13/2024 6:22 AM EDT [facility] Hemoglobin 7.4(L) 13.2 - 17.1 g/dL 10/13/2024 6:22 AM EDT [facility] Hematocrit 21.7(L) 38.5 - 50.0 % 10/13/2024 6:22 AM EDT [facility] MCV 105.4(H) 80.0 - 100.0 fL 10/13/2024 6:22 AM EDT [facility] MCH 35.9(H) 27.0 - 33.0 pg 10/13/2024 6:22 AM EDT [facility] MCHC 34.0 32.0 - 36.0 g/dL 10/13/2024 6:22 AM EDT [facility] RDW 18.5(H) 11.0 - 15.0 % 10/13/2024 6:22 AM EDT [facility] Platelets 35(L) 140 - 400 10E3/uL 10/13/2024 6:22 AM EDT [facility] Comment: CNV Specimen checked for clots. None detected. MPV 8.4 7.5 - 11.5 fL 10/13/2024 6:22 AM EDT [facility] Whole Blood 10/13/2024 5:35 AM EDT 10/13/2024 5:53 AM EDT us Eileen Schroeder MD, PhD LAB BLOOD ORDERABLES Final Result [facility] [address] * (ABNORMAL) Ammonia (10/13/2024 5:35 AM EDT) Ammonia 203(HH) 27 - 90 ug/dL 10/13/2024 7:16 AM EDT [facility] Comment: HEMOLYSIS EVIDENT. RESULTS MAY BE INFLUENCED. Critical Result [id number] Called to and read back by: KEY MELO RN at: 10/13/2024 07:15:55 by:NISREEN Plasma 10/13/2024 5:35 AM EDT 10/13/2024 6:19 AM EDT us Magenkaren Bangff DO LAB BLOOD ORDERABLES Final Resul t Performing Organization Address City/[facility]/ZIP Co de Phone Number [facility] [address] * CARISA Rhythm Strip - Scan (10/12/2024 10:30 PM EDT) us Scanning Uchhim SCAN DOCS - NO RESULTS Final Res ult * (ABNORMAL) Protime-INR (10/12/2024 5:44 AM EDT) Protime 25.7(H) 12.1 - 15.1 seconds 10/12/2024 6:12 AM EDT [facility] INR 2.3(H) 0.9 - 1.1 10/12/2024 6:12 AM EDT [facility] Comment: RECOMMENDED THERAPEUTIC RANGES USING INR : Stable oral anticoagulant therapy: 2.0 - 3.0 Mechanical prosthetic heart valve: 2.5 - 3.5 Recurrent acute myocardial infarction: 2.5 - 3.5 Plasma 10/12/2024 5:44 AM EDT 10/12/2024 5:58 AM EDT Eileen Schroeder MD, PhD LAB BLOOD ORDERABLES Final Result Performing Organization Address [facility] Co de Phone Number [facility] [address] * (ABNORMAL) Hepatic Function Panel (10/12/2024 5:44 AM EDT) Total Bilirubin 6.5(H) 0.0 - 1.5 mg/dL 10/12/2024 6:29 AM EDT [facility] Bilirubin, Direct 3.64(H) 0.00 - 0.40 mg/dL 10/12/2024 6:29 AM EDT [facility] AST 40(H) 13 - 39 U/L 10/12/2024 6:29 AM EDT [facility] ALT 19 7 - 52 U/L 10/12/2024 6:29 AM EDT [facility] Alkaline Phosphatase 99 36 - 125 U/L 10/12/2024 6:29 AM EDT [facility] Total Protein 4.2(L) 6.4 - 8.9 g/dL 10/12/2024 6:29 AM EDT [facility] Albumin 3.1(L) 3.5 - 5.7 g/dL 10/12/2024 6:29 AM EDT [facility] Bilirubin, Indirect 2.86(H) 0.00 - 1.10 mg/dL 10/12/2024 6:29 AM EDT [facility] Plasma 10/12/2024 5:44 AM EDT 10/12/2024 5:58 AM EDT Eileen Schroeder MD, PhD LAB BLOOD ORDERABLES Final Result Performing Organization Address [facility] Co de Phone Number [facility] [address] * Magnesium (10/12/2024 5:44 AM EDT) Magnesium 1.9 1.5 - 2.5 mg/dL 10/12/2024 6:29 AM EDT [facility] Plasma 10/12/2024 5:44 AM EDT 10/12/2024 5:58 AM EDT Eileen Schroeder MD, PhD LAB BLOOD ORDERABLES Final Result Performing Organization Address [facility]/ZIP Co de Phone Number [facility] [address] * (ABNORMAL) Renal Function Panel w/EGFR (10/12/2024 5:44 AM EDT) Sodium 135 133 - 146 mmol/L 10/12/2024 6:29 AM EDT [facility] Potassium 3.7 3.5 - 5.3 mmol/L 10/12/2024 6:29 AM EDT [facility] Chloride 109 98 - 110 mmol/L 10/12/2024 6:29 AM EDT [facility] CO2 17(L) 21 - 33 mmol/L 10/12/2024 6:29 AM EDT [facility] Anion Gap 9 3 - 16 mmol/L 10/12/2024 6:29 AM EDT [facility] BUN 52(H) 7 - 25 mg/dL 10/12/2024 6:29 AM EDT [facility] Creatinine 2.94(H) 0.60 - 1.30 mg/dL 10/12/2024 6:29 AM EDT [facility] Glucose 121(H) 70 - 100 mg/dL 10/12/2024 6:29 AM EDT [facility] Calcium 8.5(L) 8.6 - 10.3 mg/dL 10/12/2024 6:29 AM EDT [facility] Phosphorus 4.6 2.1 - 4.7 mg/dL 10/12/2024 6:29 AM EDT [facility] Albumin 3.1(L) 3.5 - 5.7 g/dL 10/12/2024 6:29 AM EDT [facility] Osmolality, Calculated 295 278 - 305 mOsm/kg 10/12/2024 6:29 AM EDT [facility] EGFR 27 10/12/2024 6:29 AM EDT [facility] Comment:As of 2021, [...] MD, PhD LAB BLOOD ORDERABLES Final Result [facility] [address] [facility]. [place] [address], [facility] * (ABNORMAL) CBC (10/12/2024 5:44 AM EDT) WBC 3.3(L) 3.8 - 10.8 10E3/uL 10/12/2024 7:06 AM EDT [facility] RBC 1.95(L) 4.20 - 5.80 10E6/uL 10/12/2024 7:06 AM EDT [facility] Hemoglobin 7.2(L) 13.2 - 17.1 g/dL 10/12/2024 7:06 AM EDT [facility] Hematocrit 19.7(L) 38.5 - 50.0 % 10/12/2024 7:06 AM EDT [facility] MCV 101.2(H) 80.0 - 100.0 fL 10/12/2024 7:06 AM EDT [facility] MCH 37.0(H) 27.0 - 33.0 pg 10/12/2024 7:06 AM EDT [facility] MCHC 36.5(H) 32.0 - 36.0 g/dL 10/12/2024 7:06 AM EDT [facility] RDW 17.6(H) 11.0 - 15.0 % 10/12/2024 7:06 AM EDT [facility] Platelets 30(L) 140 - 400 10E3/uL 10/12/2024 7:06 AM EDT [facility] Comment: Specimen checked for clots. None detected. Slide Reviewed for PLT Clumps. None Seen. Platelet Estimate Decreased 10/12/2024 7:06 AM EDT [facility] MPV 8.3 7.5 - 11.5 fL 10/12/2024 7:06 AM EDT [facility] Whole Blood 10/12/2024 5:44 AM EDT 10/12/2024 5:58 AM EDT Narrative [facility] - 10/12/2024 7:06 AM EDT Peripheral blood smear was scanned per review criteria approved by the laboratory medical office representative. us Eileen Schroeder MD, PhD LAB BLOOD ORDERABLES Final Result Performing Organization Address [facility]/ZIP Co de Phone Number [facility] [address] * CARISA Rhythm Strip - Scan (10/11/2024 10:04 PM EDT) us Scanning Uchhim SCAN DOCS - NO RESULTS Final Res ult * (ABNORMAL) Protime-INR (10/11/2024 3:02 AM EDT) Protime 26.8(H) 12.1 - 15.1 seconds 10/11/2024 3:30 AM EDT [facility] INR 2.4(H) 0.9 - 1.1 10/11/2024 3:30 AM EDT [facility] Comment: RECOMMENDED THERAPEUTIC RANGES USING INR : Stable oral anticoagulant therapy: 2.0 - 3.0 Mechanical prosthetic heart valve: 2.5 - 3.5 Recurrent acute myocardial infarction: 2.5 - 3.5 Plasma 10/11/2024 3:02 AM EDT 10/11/2024 3:08 AM EDT Eileen Schroeder MD, PhD LAB BLOOD ORDERABLES Final Result Performing Organization Address [facility] Co de Phone Number [facility] [address] * (ABNORMAL) Hepatic Function Panel (10/11/2024 3:02 AM EDT) Total Bilirubin 7.3(H) 0.0 - 1.5 mg/dL 10/11/2024 3:38 AM EDT [facility] Bilirubin, Direct 3.85(H) 0.00 - 0.40 mg/dL 10/11/2024 3:38 AM EDT [facility] AST 39 13 - 39 U/L 10/11/2024 3:38 AM EDT [facility] ALT 20 7 - 52 U/L 10/11/2024 3:38 AM EDT [facility] Alkaline Phosphatase 88 36 - 125 U/L 10/11/2024 3:38 AM EDT [facility] Total Protein 4.5(L) 6.4 - 8.9 g/dL 10/11/2024 3:38 AM EDT [facility] Albumin 3.3(L) 3.5 - 5.7 g/dL 10/11/2024 3:38 AM EDT [facility] Bilirubin, Indirect 3.45(H) 0.00 - 1.10 mg/dL 10/11/2024 3:38 AM EDT [facility] Plasma 10/11/2024 3:02 AM EDT 10/11/2024 3:08 AM EDT Eileen Schroeder MD, PhD LAB BLOOD ORDERABLES Final Result Performing Organization Address [facility] Co de Phone Number [facility] [address] * Magnesium (10/11/2024 3:02 AM EDT) Magnesium 2.0 1.5 - 2.5 mg/dL 10/11/2024 3:38 AM EDT [facility] Plasma 10/11/2024 3:02 AM EDT 10/11/2024 3:08 AM EDT Eileen Schroeder MD, PhD LAB BLOOD ORDERABLES Final Result Performing Organization Address [facility]/ZIP Co de Phone Number [facility] [address] * (ABNORMAL) Renal Function Panel w/EGFR (10/11/2024 3:02 AM EDT) Sodium 134 133 - 146 mmol/L 10/11/2024 3:38 AM EDT [facility] Potassium 3.6 3.5 - 5.3 mmol/L 10/11/2024 3:38 AM EDT [facility] Chloride 108 98 - 110 mmol/L 10/11/2024 3:38 AM EDT [facility] CO2 16(L) 21 - 33 mmol/L 10/11/2024 3:38 AM EDT [facility] Anion Gap 10 3 - 16 mmol/L 10/11/2024 3:38 AM EDT [facility] BUN 49(H) 7 - 25 mg/dL 10/11/2024 3:38 AM EDT [facility] Creatinine 2.77(H) 0.60 - 1.30 mg/dL 10/11/2024 3:38 AM EDT [facility] Glucose 112(H) 70 - 100 mg/dL 10/11/2024 3:38 AM EDT [facility] Calcium 8.9 8.6 - 10.3 mg/dL 10/11/2024 3:38 AM EDT [facility] Phosphorus 3.5 2.1 - 4.7 mg/dL 10/11/2024 3:38 AM EDT [facility] Albumin 3.3(L) 3.5 - 5.7 g/dL 10/11/2024 3:38 AM EDT [facility] Osmolality, Calculated 292 278 - 305 mOsm/kg 10/11/2024 3:38 AM EDT [facility] EGFR 29 10/11/2024 3:38 AM EDT [facility] Comment:As of 2021, [...] Am J Kidney Dis. 2020. Plasma 10/11/2024 3:0 2 AM EDT 10/11/2024 3:08 AM EDT us Eileen Schroeder MD, PhD LAB BLOOD ORDERABLES Final Result [facility] [address] * (ABNORMAL) CBC (10/11/2024 3:02 AM EDT) WBC 4.0 3.8 - 10.8 10E3/uL 10/11/2024 3:55 AM EDT [facility] RBC 2.11(L) 4.20 - 5.80 10E6/uL 10/11/2024 3:55 AM EDT [facility] Hemoglobin 7.7(L) 13.2 - 17.1 g/dL 10/11/2024 3:55 AM EDT [facility] Hematocrit 21.2(L) 38.5 - 50.0 % 10/11/2024 3:55 AM EDT [facility] MCV 100.5(H) 80.0 - 100.0 fL 10/11/2024 3:55 AM EDT [facility] MCH 36.4(H) 27.0 - 33.0 pg 10/11/2024 3:55 AM EDT [facility] MCHC 36.2(H) 32.0 - 36.0 g/dL 10/11/2024 3:55 AM EDT [facility] RDW 17.9(H) 11.0 - 15.0 % 10/11/2024 3:55 AM EDT [facility] Platelets 32(L) 140 - 400 10E3/uL 10/11/2024 3:55 AM EDT [facility] Comment: Specimen checked for clots. None detected. Slide Reviewed for PLT Clumps. None Seen. Platelet Estimate Decreased 10/11/2024 3:55 AM EDT [facility] MPV 8.1 7.5 - 11.5 fL 10/11/2024 3:55 AM EDT [facility] Whole Blood 10/11/2024 3:02 AM EDT 10/11/2024 3:08 AM EDT Narrative [facility] - 10/11/2024 3:55 AM EDT Peripheral blood smear was scanned per review criteria approved by the laboratory medical office representative. us Eileen Schroeder MD, PhD LAB BLOOD ORDERABLES Final Result [facility] [address] * Vancomycin, random (10/11/2024 3:02 AM EDT) Vancomycin Random 13.4 ug/mL 10/11/2024 3:37 AM EDT [facility] Comment:Reference range not established for this test. Plasma 10/11/2024 3:02 AM EDT 10/11/2024 3:08 AM EDT us Jodi Ortiz PharmD LAB BLOOD ORDERABLES Final Result [facility] [address] * IR Paracentesis incl imaging guide [...] diagnostic and therapeutic paracentesis. Bakari Wahl CNP, Crop Duster Procedure and Findings: The procedure was performed [...] for diagnostic andtherapeutic paracentesis. Bakari Wahl CNP, Crop Duster Procedure and Findings: The procedure was performed [...] Colorless, Pale Yellow 10/10/2024 5:29 PM EDT [facility] Clarity, Fluid Clear 10/10/2024 5:29 PM EDT [facility] Neutrophil %, Fluid 9 % 10/10/2024 5:29 PM EDT [facility] Lymphocytes %, Fluid 13 % 10/10/2024 5:29 PM EDT [facility] Mesothelial %, Fluid 6 % 10/10/2024 5:29 PM EDT [facility] Macrophage %, Fluid 72 % 10/10/2024 5:29 PM EDT [facility] RBC, Fluid 2,662 /uL 10/10/2024 4:41 PM EDT [facility] Total Nucleated Cells, Fluid 89 /uL 10/10/2024 4:41 PM EDT [facility] Comment:Total Nucleated Cell s represent WBCs and other nucleated cells in the fluid such as lining cells. Ascitic Fluid ABDOMEN / Unknown 1:51 PM EDT 10/10/2024 3:56 PM EDT us Gerri Peterson MD BODY FLUIDS AND STOOLS ORDERABL ES Final Result [facility] [address] [place], [place] [id number] [place] [address] * Body Fluid Culture plus Stain (10/10/2024 1:51 PM EDT) Gram Stain Result Cytospin Results: [facility] Gram Stain Result Polymorphonuclear Leukocytes Seen; [facility] Gram Stain Result No Organisms Seen; [facility] Culture Result No Growth After 5 Days [facility] Fluid ABDOMEN / Unknown 10/10/2024 1:51 PM EDT 10/10/2024 3:56 PM EDT us Gerri Peterson MD MICROBIOLOGY - GENERAL ORDERABL ES Final Result [facility] [address] * UPPER GI ENDOSCOPY (10/10/2024 11:48 AM EDT) 10/10/2024 11:4 8 AM EDT Narrative [facility] - 10/10/2024 12:34 PM EDT [id number] Procedure Date: 10/10/2024 11:48 AM Patient Name: Julien Gilbert Date of : 1985 Admit Type: Inpatient Age: 39 Gender: Male Note Status: Finalized Attending MD: Lino Soto MD, [id number] Procedure: Upper GI endoscopy Indications: Gastroesopahgeal variceal [...] verified by the physician, the nurse, the microsoft bi developer and the hot cell technician in the [...] to hypotension Procedure Code(s): --- Professional --- 41323, GC, Esophagogastroduodenoscopy, flexible, transoral; diagnostic, including collection of specimen(s) by brushing or washing, when performed (separate procedure) Diagnosis Code(s): --- Professional --- I85.00, Esophageal varices without bleeding K76.6, Portal hypertension K31.89, Other diseases of stomach and duodenum CPT copyright 2022 [employer]. All rights reserved. The codes documented in this report are preliminary and upon float builder review may be revised to meet current [...] In: 12:10:16 PM Scope Out: 12:17:[address] [place] [address], [id number] us Provider Not In System PROCEDURE/MINOR SURGICAL ORDERABLES Final Result [facility] * (ABNORMAL) Protime-INR (10/10/2024 5:23 AM EDT) Protime 23.9(H) 12.1 - 15.1 seconds 10/10/2024 6:11 AM EDT [facility] INR 2.1(H) 0.9 - 1.1 10/10/2024 6:11 AM EDT [facility] Comment: RECOMMENDED THERAPEUTIC RANGES USING INR : Stable oral anticoagulant therapy: 2.0 - 3.0 Mechanical prosthetic heart valve: 2.5 - 3.5 Recurrent acute myocardial infarction: 2.5 - 3.5 Plasma 10/10/2024 5:23 AM EDT 10/10/2024 5:50 AM EDT us Eileen Schroeder MD, PhD LAB BLOOD ORDERABLES Final Result Performing Organization Address [facility] Co de Phone Number [facility] [address] [place] [address], [facility] * (ABNORMAL) Hepatic Function Panel (10/10/2024 5:23 AM EDT) Total Bilirubin 8.6(H) 0.0 - 1.5 mg/dL 10/10/2024 6:21 AM EDT [facility] Bilirubin, Direct 4.65(H) 0.00 - 0.40 mg/dL 10/10/2024 6:21 AM EDT [facility] AST 40(H) 13 - 39 U/L 10/10/2024 6:21 AM EDT [facility] ALT 22 7 - 52 U/L 10/10/2024 6:21 AM EDT [facility] Alkaline Phosphatase 118 36 - 125 U/L 10/10/2024 6:21 AM EDT [facility] Total Protein 4.6(L) 6.4 - 8.9 g/dL 10/10/2024 6:21 AM EDT [facility] Albumin 3.3(L) 3.5 - 5.7 g/dL 10/10/2024 6:21 AM EDT [facility] Bilirubin, Indirect 3.95(H) 0.00 - 1.10 mg/dL 10/10/2024 6:21 AM EDT [facility] Plasma 10/10/2024 5:23 AM EDT 10/10/2024 5:50 AM EDT us Eileen Schroeder MD, PhD LAB BLOOD ORDERABLES Final Result [facility] [address] [facility]. [address] * Magnesium (10/10/2024 5:23 AM EDT) Magnesium 1.9 1.5 - 2.5 mg/dL 10/10/2024 6:21 AM EDT [facility] Plasma 10/10/2024 5:23 AM EDT 10/10/2024 5:50 AM EDT us Eileen Schroeder MD, PhD LAB BLOOD ORDERABLES Final Result Performing Organization Address [facility]/ZIP Co de Phone Number [facility] [address] * (ABNORMAL) Renal Function Panel w/EGFR (10/10/2024 5:23 AM EDT) Sodium 135 133 - 146 mmol/L 10/10/2024 6:21 AM EDT [facility] Potassium 3.6 3.5 - 5.3 mmol/L 10/10/2024 6:21 AM EDT [facility] Chloride 108 98 - 110 mmol/L 10/10/2024 6:21 AM EDT [facility] CO2 17(L) 21 - 33 mmol/L 10/10/2024 6:21 AM EDT [facility] Anion Gap 10 3 - 16 mmol/L 10/10/2024 6:21 AM EDT [facility] BUN 53(H) 7 - 25 mg/dL 10/10/2024 6:21 AM EDT [facility] Creatinine 2.85(H) 0.60 - 1.30 mg/dL 10/10/2024 6:21 AM EDT [facility] Glucose 113(H) 70 - 100 mg/dL 10/10/2024 6:21 AM EDT [facility] Calcium 9.0 8.6 - 10.3 mg/dL 10/10/2024 6:21 AM EDT [facility] Phosphorus 3.3 2.1 - 4.7 mg/dL 10/10/2024 6:21 AM EDT [facility] Albumin 3.3(L) 3.5 - 5.7 g/dL 10/10/2024 6:21 AM EDT [facility] Osmolality, Calculated 295 278 - 305 mOsm/kg 10/10/2024 6:21 AM EDT [facility] EGFR 28 10/10/2024 6:21 AM EDT [facility] Comment:As of 2021, [...] MD, PhD LAB BLOOD ORDERABLES Final Result [facility] [address] [place] [address], [facility] * (ABNORMAL) CBC (10/10/2024 5:23 AM EDT) WBC 5.1 3.8 - 10.8 10E3/uL 10/10/2024 6:14 AM EDT [facility] RBC 2.04(L) 4.20 - 5.80 10E6/uL 10/10/2024 6:14 AM EDT [facility] Hemoglobin 7.3(L) 13.2 - 17.1 g/dL 10/10/2024 6:14 AM EDT [facility] Hematocrit 20.6(L) 38.5 - 50.0 % 10/10/2024 6:14 AM EDT [facility] MCV 101.2(H) 80.0 - 100.0 fL 10/10/2024 6:14 AM EDT [facility] MCH 36.0(H) 27.0 - 33.0 pg 10/10/2024 6:14 AM EDT [facility] MCHC 35.5 32.0 - 36.0 g/dL 10/10/2024 6:14 AM EDT [facility] RDW 17.6(H) 11.0 - 15.0 % 10/10/2024 6:14 AM EDT [facility] Platelets 39(L) 140 - 400 10E3/uL 10/10/2024 6:14 AM EDT [facility] Comment: CNV Specimen checked for clots. None detected. MPV 9.8 7.5 - 11.5 fL 10/10/2024 6:14 AM EDT [facility] Whole Blood 10/10/2024 5:23 AM EDT 10/10/2024 5:51 AM EDT us Eileen Schroeder MD, PhD LAB BLOOD ORDERABLES Final Result [facility] [address] * Vancomycin, random (10/10/2024 5:23 AM EDT) Vancomycin Random 16.4 ug/mL 10/10/2024 6:22 AM EDT [facility] Comment:Reference range not established for this test. Plasma 10/10/2024 5:23 AM EDT 10/10/2024 5:51 AM EDT us Jodi FreireD LAB BLOOD ORDERABLES Final Result Performing Organization Address City/[facility]/ZIP Co de Phone Number [facility] [address] * ECHO STRESS W/ CONTRAST (10/09/2024 4:37 PM EDT) Anatomical Region Laterality Modality Chest Ultrasound 10/09/2024 2:40 PM EDT Narrative 10/09/2024 6:45 PM EDT * [facility]* [facility] [place], [place] [id number] Stress Echocardiogram Patient: Julien Gilbert Room: 8142 Height: 76in MR Number: [id number] : 1985 Weight: 262lb Account: [id number] Gender: M BP: 125 / 77 Study Date: 10/09/2024 Age: 39 BSA: 2.48m^2 Referring physician: Gerri Peterson Interpreting physician: Tonya Henriquez MD FELLOW Lisa Jha MD PERFORMING Tonya Henriquez MD CTE TEACHER [employer] Gan ORDERING Gerri Peterson REFERRING Gerri [...] was augmented by the addition of hand hotel service supervisor and leg lifts. The infusion was terminated [...] at baseline or with provocation, shows no rmklk-wn-vpzz atrial level shunt. - Pulmonary arteries: Systolic [...] at baseline or with provocation, shows no ygbvg-hq-vnbf atrial level shunt. Pulmonary artery: - Systolic [...] at baseline or with provocation, shows no nkskm-xd-urwm atrial level shunt. Pericardium: - There is [...] peak heart rate and blood pressure was 11765pw Hg/min. Stress testing did not produce any [...] Reviewed and confirmed by Tonya Henriquez MD [id number] Procedure Note Tonya Henriquez MD - 10/09/2024 * [facility]* [address] [place] [address] Stress Echocardiogram Patient: Julien Gilbert Room: 8142 Height: 76in MR Number: [id number] : 1985 Weight: 262lb Account: [id number] Gender: M BP: 125 / 77 Study Date: 10/09/2024 Age: 39 BSA: 2.48m^2 Referring physician: Gerri Peterson Interpreting physician: Tonya Henriquez MD FELLOW Lisa Jha MD PERFORMING Tonya Henriquez MD CTE TEACHER [employer] Askanda REFERRING Gerri Peterson ATTENDING Fouzia Rene ADMITTING Angie Blanchard Procedure:STRESS ECHO - PHARMACOLOGIC Order: Indications: Pre-Operative Clearance (Z01.818). PMH: EtOH Use Disorder. Risk factors: Hypertension. Dyslipidemia. Study data: Height: 76in. 193cm. Weight: 262lb. 118.8kg. The previousstudy was not available, so comparison was made to the report of 07/15/2024. Study status: Routine. Procedure: [facility] was recorded. Intravenous [...] was augmented by the addition of hand hotel service supervisor and leg lifts. The infusion was terminated [...] at baseline or with provocation, shows no asarg-zg-xwqp atrial level shunt. - Pulmonary arteries: Systolic [...] study at baseline or with provocation, showsno wjine-kd-jsfm atrial level shunt. Pulmonary artery: - Systolic [...] at baseline or with provocation, shows no nypok-zw-ytzc atrial level shunt. Pericardium: - There is [...] heart rate). The maximal predicted heart rate [id number]. The target heart rate was 152bpm. The target heart rate was achieved.The heart rate response to stress is normal. There is a normal resting blood pressure with an appropriate response to stress. The rate-pressureproduct for the peak heart rate and blood pressure was 28878rx Hg/min. Stress testing did not produce any [...] Reviewed and confirmed by Tonya Henriquez MD [id number] us Gerri Peterson MD CV ECHO ORDERABLES Final Result * (ABNORMAL) Renal Function Panel w/EGFR, STAT (10/09/2024 1:05 PM EDT) Sodium 134 133 - 146 mmol/L 10/09/2024 2:10 PM EDT [facility] Potassium 3.7 3.5 - 5.3 mmol/L 10/09/2024 2:10 PM EDT [facility] Chloride 105 98 - 110 mmol/L 10/09/2024 2:10 PM EDT [facility] CO2 17(L) 21 - 33 mmol/L 10/09/2024 2:10 PM EDT [facility] Anion Gap 12 3 - 16 mmol/L 10/09/2024 2:10 PM EDT [facility] BUN 53(H) 7 - 25 mg/dL 10/09/2024 2:10 PM EDT [facility] Creatinine 2.89(H) 0.60 - 1.30 mg/dL 10/09/2024 2:10 PM EDT [facility] Glucose 108(H) 70 - 100 mg/dL 10/09/2024 2:10 PM EDT [facility] Calcium 9.3 8.6 - 10.3 mg/dL 10/09/2024 2:10 PM EDT [facility] Phosphorus 3.4 2.1 - 4.7 mg/dL 10/09/2024 2:10 PM EDT [facility] Albumin 3.6 3.5 - 5.7 g/dL 10/09/2024 2:10 PM EDT [facility] Osmolality, Calculated 293 278 - 305 mOsm/kg 10/09/2024 2:10 PM EDT [facility] EGFR 27 10/09/2024 2:10 PM EDT [facility] Comment:As of [...] MD, PhD LAB BLOOD ORDERABLES Final Result [facility] [address] * (ABNORMAL) Renal Function Panel w/EGFR, STAT (10/09/2024 8:14 AM EDT) Sodium 134 133 - 146 mmol/L 10/09/2024 8:47 AM EDT [facility] Potassium 3.4(L) 3.5 - 5.3 mmol/L 10/09/2024 8:47 AM EDT [facility] Chloride 107 98 - 110 mmol/L 10/09/2024 8:47 AM EDT [facility] CO2 17(L) 21 - 33 mmol/L 10/09/2024 8:47 AM EDT [facility] Anion Gap 10 3 - 16 mmol/L 10/09/2024 8:47 AM EDT [facility] BUN 54(H) 7 - 25 mg/dL 10/09/2024 8:47 AM EDT [facility] Creatinine 3.04(H) 0.60 - 1.30 mg/dL 10/09/2024 8:47 AM EDT [facility] Glucose 124(H) 70 - 100 mg/dL 10/09/2024 8:47 AM EDT [facility] Calcium 9.0 8.6 - 10.3 mg/dL 10/09/2024 8:47 AM EDT [facility] Phosphorus 3.5 2.1 - 4.7 mg/dL 10/09/2024 8:47 AM EDT [facility] Albumin 3.4(L) 3.5 - 5.7 g/dL 10/09/2024 8:47 AM EDT [facility] Osmolality, Calculated 294 278 - 305 mOsm/kg 10/09/2024 8:47 AM EDT [facility] EGFR 26 10/09/2024 8:47 AM EDT [facility] Comment:As of 2021, [...] Final Resu lt [facility] [address] * Prepare RBC, leukoreduced, 1 Units (10/09/2024 6:16 AM EDT) Product Code [id number] HCLL Unit Number [id number] HCLL Dispense Status Presumed Transfused_PT [facility] Blood Expiration Date [id number] HCLL Coding System [id number] [facility] Blood Bank Product us Eileen Schroeder [...] BLOOD ORDERABLES Final Result Performing Organization Address City/[facility]/ZIP Co de Phone Number [facility] [address] * (ABNORMAL) Hepatic Function Panel (10/09/2024 4:59 AM EDT) Total Bilirubin 9.0(H) 0.0 - 1.5 mg/dL 10/09/2024 6:42 AM EDT [facility] Bilirubin, Direct 4.60(H) 0.00 - 0.40 mg/dL 10/09/2024 6:42 AM EDT [facility] AST 38 13 - 39 U/L 10/09/2024 6:42 AM EDT [facility] ALT 18 7 - 52 U/L 10/09/2024 6:42 AM EDT [facility] Alkaline Phosphatase 122 36 - 125 U/L 10/09/2024 6:42 AM EDT [facility] Total Protein 4.8(L) 6.4 - 8.9 g/dL 10/09/2024 6:42 AM EDT [facility] Albumin 3.4(L) 3.5 - 5.7 g/dL 10/09/2024 6:42 AM EDT [facility] Bilirubin, Indirect 4.40(H) 0.00 - 1.10 mg/dL 10/09/2024 6:42 AM EDT [facility] Plasma 10/09/2024 4:59 AM EDT 10/09/2024 5:57 AM EDT Eileen Schroeder MD, PhD LAB BLOOD ORDERABLES Final Result Performing Organization Address [facility]/ZIP Co de Phone Number [facility] [address] * Magnesium (10/09/2024 4:59 AM EDT) Magnesium 1.8 1.5 - 2.5 mg/dL 10/09/2024 6:42 AM EDT [facility] Plasma 10/09/2024 4:59 AM EDT 10/09/2024 5:57 AM EDT Eileen Schroeder MD, PhD LAB BLOOD ORDERABLES Final Result Performing Organization Address [facility] de Phone Number [facility] [address] * (ABNORMAL) Renal Function Panel w/EGFR (10/09/2024 4:59 AM EDT) Sodium 134 133 - 146 mmol/L 10/09/2024 6:42 AM EDT [facility] Potassium 3.3(L) 3.5 - 5.3 mmol/L 10/09/2024 6:42 AM EDT [facility] Chloride 107 98 - 110 mmol/L 10/09/2024 6:42 AM EDT [facility] CO2 16(L) 21 - 33 mmol/L 10/09/2024 6:42 AM EDT [facility] Anion Gap 11 3 - 16 mmol/L 10/09/2024 6:42 AM EDT [facility] BUN 56(H) 7 - 25 mg/dL 10/09/2024 6:42 AM EDT [facility] Creatinine 2.98(H) 0.60 - 1.30 mg/dL 10/09/2024 6:42 AM EDT [facility] Glucose 112(H) 70 - 100 mg/dL 10/09/2024 6:42 AM EDT [facility] Calcium 9.0 8.6 - 10.3 mg/dL 10/09/2024 6:42 AM EDT [facility] Phosphorus 3.5 2.1 - 4.7 mg/dL 10/09/2024 6:42 AM EDT [facility] Albumin 3.4(L) 3.5 - 5.7 g/dL 10/09/2024 6:42 AM EDT [facility] Osmolality, Calculated 294 278 - 305 mOsm/kg 10/09/2024 6:42 AM EDT [facility] EGFR 26 10/09/2024 6:42 AM EDT [facility] Comment:As of 2021, [...] MD, PhD LAB BLOOD ORDERABLES Final Result [facility] [address] [place] [address], [facility] * (ABNORMAL) CBC (10/09/2024 4:59 AM EDT) WBC 4.6 3.8 - 10.8 10E3/uL 10/09/2024 6:21 AM EDT [facility] RBC 2.17(L) 4.20 - 5.80 10E6/uL 10/09/2024 6:21 AM EDT [facility] Hemoglobin 8.0(L) 13.2 - 17.1 g/dL 10/09/2024 6:21 AM EDT [facility] Hematocrit 21.8(L) 38.5 - 50.0 % 10/09/2024 6:21 AM EDT [facility] MCV 100.5(H) 80.0 - 100.0 fL 10/09/2024 6:21 AM EDT [facility] MCH 36.7(H) 27.0 - 33.0 pg 10/09/2024 6:21 AM EDT [facility] MCHC 36.5(H) 32.0 - 36.0 g/dL 10/09/2024 6:21 AM EDT [facility] RDW 18.1(H) 11.0 - 15.0 % 10/09/2024 6:21 AM EDT [facility] Platelets 36(L) 140 - 400 10E3/uL 10/09/2024 6:21 AM EDT [facility] Comment:Specimen checked for clots. None detected. MPV 8.3 7.5 - 11.5 fL 10/09/2024 6:21 AM EDT [facility] Whole Blood 10/09/2024 4:59 AM EDT 10/09/2024 5:56 AM EDT us Eileen Schroeder MD, PhD LAB BLOOD ORDERABLES Final Result [facility] [address] [place], [place] [address] * Renal Tx Recipient (10/09/2024 4:59 AM EDT) Renal Transplant Recipient The request and specimen(s) for this test have been received and transported to the [facility] at [address] [place] [address]. The [facility] will report results directly to the client. 10/09/2024 7:26 AM EDT [facility] Blood 10/09/2024 4:59 AM EDT 10/09/2024 7:26 AM EDT us Aaron Gonzalez MD LAB BLOOD ORDERABLES Final Resu lt [facility] [address] * Vancomycin, random (10/09/2024 4:59 AM EDT) Vancomycin Random 11.0 ug/mL 10/09/2024 6:33 AM EDT [facility] Comment:Reference range not established for this test. Plasma 10/09/2024 4:59 AM EDT 10/09/2024 5:56 AM EDT us Jodi Ortiz PharmD LAB BLOOD ORDERABLES Final Result Performing Organization Address [facility] Co de Phone Number [facility] [address] [facility]. [address] * (ABNORMAL) CBC (10/08/2024 5:52 PM EDT) WBC 5.6 3.8 - 10.8 10E3/uL 10/08/2024 6:52 PM EDT [facility] RBC 2.38(L) 4.20 - 5.80 10E6/uL 10/08/2024 6:52 PM EDT [facility] Hemoglobin 8.3(L) 13.2 - 17.1 g/dL 10/08/2024 6:52 PM EDT [facility] Hematocrit 24.6(L) 38.5 - 50.0 % 10/08/2024 6:52 PM EDT [facility] MCV 103.2(H) 80.0 - 100.0 fL 10/08/2024 6:52 PM EDT [facility] MCH 34.7(H) 27.0 - 33.0 pg 10/08/2024 6:52 PM EDT [facility] MCHC 33.6 32.0 - 36.0 g/dL 10/08/2024 6:52 PM EDT [facility] RDW 18.5(H) 11.0 - 15.0 % 10/08/2024 6:52 PM EDT [facility] Platelets 39(L) 140 - 400 10E3/uL 10/08/2024 6:52 PM EDT [facility] Comment:CNV MPV 8.1 7.5 - 11.5 fL 10/08/2024 6:52 PM EDT [facility] Whole Blood 10/08/2024 5:52 PM EDT 10/08/2024 6:45 PM EDT Eileen Schroeder MD, PhD LAB BLOOD ORDERABLES Final Result Performing Organization Address [facility]/ZIP Co de Phone Number [facility] [address] * Transfuse RBC Has consent been [...] BLOOD ADMIN Final Result Performing Organization Address City/[facility]/ZIP Co de Phone Number EXTERNAL * (ABNORMAL) MMR(IgG) Panel (Measles, Mumps, Rubella) (10/08/2024 10:25 AM EDT) Mumps IgG Positive 10/08/2024 11:39 AM EDT [facility] MUMPS IGG NUM 99.00(H) 0.0 - 8.9 U/mL 10/08/2024 11:39 AM EDT [facility] Rubella IgG Scr Positive 10/08/2024 11:40 AM EDT [facility] RUB NUM 4.15(H) 0.00 - 0.89 INDEX 10/08/2024 11:40 AM EDT [facility] Rubeola Ab, IgG Positive 10/08/2024 11:39 AM EDT [facility] RUB IGG NUM 273.00(H) 0.00 - 13.40 U/mL 10/08/2024 11:39 AM EDT [facility] Serum 10/08/2024 10:2 5 AM EDT 10/08/2024 10:49 AM EDT Narrative [facility] - 10/08/2024 11:40 AM EDT Presence of detectable measles virus IgG antibodies. A positive result generally indicates exposure to measles virus or previous vaccination. Presence of detectable mumps virus IgG antibodies. A positive result generally indicates past exposure to mumps virus or previous vaccination. Sample is considered positive for IgG antibodies to rubella virus. Result [facility] Gerri Peterson MD LAB BLOOD ORDERABLES Final Resu lt Performing Organization Address [facility] Co de Phone Number [facility] [address] [facility]. [address] * (ABNORMAL) Hemoglobin A1C (10/08/2024 10:25 AM EDT) [facility] Hemoglobin A1C 3.7(L) 4.0 - 5.6 % 10/09/2024 1:22 PM EDT [facility] Comment: Hemoglobin A1c Interpretation Guidelines: [...] AM EDT 10/08/2024 10:51 AM EDT Result [facility] Gerri Peterson MD LAB BLOOD ORDERABLES Final Resu lt Performing Organization Address [facility] de Phone Number [facility] [address] [facility]. [address] * (ABNORMAL) Vitamin D 25 Hydroxy (10/08/2024 10:25 AM EDT) Vit D, 25-Hydroxy 7.1(L) 30.0 - 100.0 ng/mL 10/08/2024 11:36 AM EDT HEALTH [facility] Comment: Vitamin D deficiency has been defined by the [place] of [employer] (IOM) and an Endocrine Society [...] BLOOD ORDERABLES Final Resu lt HEALTH LAB [address] [facility]. [place] [id number], [facility] * Iron Studies (Iron + TIBC) (10/08/2024 [...] Final Resu lt [facility] [address] * (ABNORMAL) Ferritin (10/08/2024 10:25 AM EDT) Ferritin 706.9(H) 23.9 - 336.2 ng/mL 10/08/2024 11:35 AM EDT [facility] Serum 10/08/2024 10:2 5 AM EDT 10/08/2024 10:49 AM EDT Gerri Peterson MD LAB BLOOD ORDERABLES Final Resu lt Performing Organization Address [facility]/ZIP Co de Phone Number [facility] [address] [facility]. [address] * QuantiFERON TB2 Ag (10/08/2024 10:25 AM EDT) QuantiFERON TB2 Ag Value 0.07 10/10/2024 10:41 AM EDT [facility] Plasma 10/08/2024 10:2 5 AM EDT 10/08/2024 11:05 AM EDT Gerri Peterson MD LAB BLOOD ORDERABLES Final Resu lt Performing Organization Address City/[facility]/ZIP Co de Phone Number [facility] [address] [facility]. [address] * QuantiFERON TB1 Ag (10/08/2024 10:25 AM EDT) QuantiFERON TB1 Ag Value 0.06 10/10/2024 10:41 AM EDT [facility] Plasma 10/08/2024 10:2 5 AM EDT 10/08/2024 11:05 AM EDT Gerri Peterson MD LAB BLOOD ORDERABLES Final Resu lt [facility] [address] * QuantiFERON Nil (10/08/2024 10:25 AM EDT) QuantiFERON Nil 0.06 10:41 AM EDT [facility] Plasma 10/08/2024 10:2 5 AM EDT 10/08/2024 11:05 AM EDT Gerri Peterson MD LAB BLOOD ORDERABLES Final Resu lt [facility] [address] * QuantiFERON Mitogen (10/08/2024 10:25 AM EDT) QuantiFERON Interpretation Negative Negative 10/10/2024 10:41 AM EDT [facility] Comment:Negative result geovanny cates M. tuberculosis infection is NOT likely. Negative results do not preclude tuberculosis infection (especially in immunosuppressed patients). Negative results have a TB antigen minus Nil value less than 0.35 IU/mL. In cases with high suspicion of disease, retesting or additional testing with medical evaluation may be useful. QuantiFERON Mitogen 4.87 10/10 10:41 AM EDT [facility] Plasma 10/08/2024 10:2 5 AM EDT 10/08/2024 11:05 AM EDT Narrative [facility] - 10/10/2024 10:41 AM EDT [...] Final Resu lt [facility] [address] * Reticulocyte Count, Auto (10/08/2024 7:41 AM EDT) Retic Ct Pct 1.35 0.50 - 2.00 % 10/08/2024 9:12 AM EDT [facility] Retic Ct Abs 26,190 25,000 - 90,000 /uL 10/08/2024 9:14 AM EDT [facility] Immature Retic Fract 0.37 0.09 - 0.56 10/08/2024 9:12 AM EDT [facility] Whole Blood 10/08/2024 7:41 AM EDT 10/08/2024 8:51 AM EDT us Angie Blanchard MD LAB BLOOD ORDERABLES Final Res ult Performing Organization Address [facility]/ZIP Co de Phone Number [facility] [address] [facility]. [address] * (ABNORMAL) Haptoglobin (10/08/2024 7:41 AM EDT) Haptoglobin <30(L) 44 - 215 mg/dL 10/08/2024 8:53 AM EDT [facility] Serum 10/08/2024 7:41 AM EDT 10/08/2024 7:51 AM EDT us Eileen Schroeder MD, PhD LAB BLOOD ORDERABLES Final Result [facility] [address] [facility]. [address] * (ABNORMAL) CBC - Post Transfusion (10/08/2024 7:41 AM EDT) WBC 3.7(L) 3.8 - 10.8 10E3/uL 10/08/2024 8:34 AM EDT [facility] RBC 1.94(L) 4.20 - 5.80 10E6/uL 10/08/2024 8:34 AM EDT [facility] Hemoglobin 7.1(L) 13.2 - 17.1 g/dL 10/08/2024 8:34 AM EDT [facility] Hematocrit 20.0(L) 38.5 - 50.0 % 10/08/2024 8:34 AM EDT [facility] MCV 103.1(H) 80.0 - 100.0 fL 10/08/2024 8:34 AM EDT [facility] MCH 36.5(H) 27.0 - 33.0 pg 10/08/2024 8:34 AM EDT [facility] MCHC 35.4 32.0 - 36.0 g/dL 10/08/2024 8:34 AM EDT [facility] RDW 17.2(H) 11.0 - 15.0 % 10/08/2024 8:34 AM EDT [facility] Platelets 37(L) 140 - 400 10E3/uL 10/08/2024 8:34 AM EDT [facility] Comment: Specimen checked for clots. None detected. Slide Reviewed for PLT Clumps. None Seen. _Platelet Morphology Normal _Platelets Appear Decreased MPV 8.7 7.5 - 11.5 fL 10/08/2024 8:34 AM EDT [facility] Whole Blood 10/08/2024 7:41 AM EDT 10/08/2024 7:52 AM EDT [facility] - 10/08/2024 8:34 AM EDT Post-transfusion Eileen Schroeder MD, PhD LAB BLOOD ORDERABLES Final Result [facility] [address] [id number], [facility] * Antibody Screen (10/08/2024 7:41 AM EDT) Antibody Screen Negative 10/08/2024 8:26 AM EDT [facility] Blood 10/08/2024 7:41 AM EDT 10/08/2024 7:57 AM EDT [facility] - 10/08/2024 8:32 AM EDT Testing performed by [facility] Transfusion Service Eileen Schroeder MD, PhD BLOOD BANK TEST ORDER PAL Final Result Performing Organization Address [facility]/ZIP Co de Phone Number [facility] [address] [facility]. [address] * ABO/Rh (10/08/2024 7:41 AM EDT) ABO Grouping O 10/08/2024 8:14 AM EDT [facility] Rh Type Positive 10/08/2024 8:14 AM EDT [facility] Blood 10/08/2024 7:41 AM EDT 10/08/2024 7:57 AM EDT Eileen Schroeder MD, PhD BLOOD BANK TEST ORDER PAL Final Result Performing Organization Address [facility] Co de Phone Number [facility] [address] [facility]. [address] * (ABNORMAL) Lactate dehydrogenase (10/08/2024 5:36 AM EDT) LD 102(L) 110 - 270 U/L 10/08/2024 8:20 AM EDT [facility] Plasma 10/08/2024 5:36 AM EDT 10/08/2024 7:58 AM EDT Angie Blanchard MD LAB BLOOD ORDERABLES Final Res ult Performing Organization Address City/[facility]/ZIP Co de Phone Number [facility] [address] [facility]. [address] * (ABNORMAL) Protime-INR (10/08/2024 5:36 AM EDT) Protime 26.9(H) 12.1 - 15.1 seconds 10/08/2024 6:11 AM EDT [facility] INR 2.4(H) 0.9 - 1.1 10/08/2024 6:11 AM EDT [facility] Comment: RECOMMENDED THERAPEUTIC RANGES USING INR : Stable oral anticoagulant therapy: 2.0 - 3.0 Mechanical prosthetic heart valve: 2.5 - 3.5 Recurrent acute myocardial infarction: 2.5 - 3.5 Plasma 10/08/2024 5:36 AM EDT 10/08/2024 5:52 AM EDT Eileen Schroeder MD, PhD LAB BLOOD ORDERABLES Final Result Performing Organization Address [facility] Co de Phone Number [facility] [address] * (ABNORMAL) Hepatic Function Panel (10/08/2024 5:36 AM EDT) Total Bilirubin 7.7(H) 0.0 - 1.5 mg/dL 10/08/2024 6:25 AM EDT [facility] Bilirubin, Direct 4.28(H) 0.00 - 0.40 mg/dL 10/08/2024 6:25 AM EDT [facility] AST 34 13 - 39 U/L 10/08/2024 6:25 AM EDT [facility] ALT 16 7 - 52 U/L 10/08/2024 6:25 AM EDT [facility] Alkaline Phosphatase 103 36 - 125 U/L 10/08/2024 6:25 AM EDT [facility] Total Protein 4.7(L) 6.4 - 8.9 g/dL 10/08/2024 6:25 AM EDT [facility] Albumin 3.5 3.5 - 5.7 g/dL 10/08/2024 6:25 AM EDT [facility] Bilirubin, Indirect 3.42(H) 0.00 - 1.10 mg/dL 10/08/2024 6:25 AM EDT [facility] Plasma 10/08/2024 5:36 AM EDT 10/08/2024 5:52 AM EDT Eileen Schroeder MD, PhD LAB BLOOD ORDERABLES Final Result Performing Organization Address City/[facility]/ZIP Co de Phone Number [facility] [address] [facility]. [address] * Magnesium (10/08/2024 5:36 AM EDT) Magnesium 1.9 1.5 - 2.5 mg/dL 10/08/2024 6:25 AM EDT [facility] Plasma 10/08/2024 5:36 AM EDT 10/08/2024 5:52 AM EDT Eileen Schroeder MD, PhD LAB BLOOD ORDERABLES Final Result [facility] [address] [facility]. [address] * (ABNORMAL) Renal Function Panel w/EGFR (10/08/2024 5:36 AM EDT) Sodium 135 133 - 146 mmol/L 10/08/2024 6:25 AM EDT [facility] Potassium 3.2(L) 3.5 - 5.3 mmol/L 10/08/2024 6:25 AM EDT [facility] Chloride 106 98 - 110 mmol/L 10/08/2024 6:25 AM EDT [facility] CO2 17(L) 21 - 33 mmol/L 10/08/2024 6:25 AM EDT [facility] Anion Gap 12 3 - 16 mmol/L 10/08/2024 6:25 AM EDT [facility] BUN 61(H) 7 - 25 mg/dL 10/08/2024 6:25 AM EDT [facility] Creatinine 3.10(H) 0.60 - 1.30 mg/dL 10/08/2024 6:25 AM EDT [facility] Glucose 106(H) 70 - 100 mg/dL 10/08/2024 6:25 AM EDT [facility] Calcium 9.0 8.6 - 10.3 mg/dL 10/08/2024 6:25 AM EDT [facility] Phosphorus 4.0 2.1 - 4.7 mg/dL 10/08/2024 6:25 AM EDT [facility] Albumin 3.5 3.5 - 5.7 g/dL 10/08/2024 6:25 AM EDT [facility] Osmolality, Calculated 298 278 - 305 mOsm/kg 10/08/2024 6:25 AM EDT [facility] EGFR 25 10/08/2024 6:25 AM EDT [facility] Comment:As of 2021, [...] MD, PhD LAB BLOOD ORDERABLES Final Result [facility] [address] * (ABNORMAL) CBC (10/08/2024 5:36 AM EDT) WBC 3.2(L) 3.8 - 10.8 10E3/uL 10/08/2024 6:41 AM EDT [facility] RBC 1.86(L) 4.20 - 5.80 10E6/uL 10/08/2024 6:41 AM EDT [facility] Hemoglobin 6.9(L) 13.2 - 17.1 g/dL 10/08/2024 6:41 AM EDT [facility] Hematocrit 18.9(L) 38.5 - 50.0 % 10/08/2024 6:41 AM EDT [facility] MCV 101.6(H) 80.0 - 100.0 fL 10/08/2024 6:41 AM EDT [facility] MCH 36.9(H) 27.0 - 33.0 pg 10/08/2024 6:41 AM EDT [facility] MCHC 36.3(H) 32.0 - 36.0 g/dL 10/08/2024 6:41 AM EDT [facility] RDW 17.0(H) 11.0 - 15.0 % 10/08/2024 6:41 AM EDT [facility] Platelets 34(L) 140 - 400 10E3/uL 10/08/2024 6:41 AM EDT [facility] Comment: Specimen checked for clots. None detected. Slide Reviewed for PLT Clumps. None Seen. Platelet Estimate Decreased 10/08/2024 6:41 AM EDT [facility] MPV 8.4 7.5 - 11.5 fL 10/08/2024 6:41 AM EDT [facility] Whole Blood 10/08/2024 5:36 AM EDT 10/08/2024 5:53 AM EDT Narrative [facility] - 10/08/2024 6:41 AM EDT Peripheral blood smear was scanned per review criteria approved by the laboratory medical office representative. us Eileen Schroeder MD, PhD LAB BLOOD ORDERABLES Final Result [facility] [address] * Vancomycin, random (10/08/2024 5:36 AM EDT) Vancomycin Random 16.0 ug/mL 10/08/2024 6:20 AM EDT [facility] Comment:Reference range not established for this test. Plasma 10/08/2024 5:36 AM EDT 10/08/2024 5:52 AM EDT us Jodi FreireD LAB BLOOD ORDERABLES Final Result Performing Organization Address [facility]/ZIP Co de Phone Number [facility] [address] * Urine Drug Confirmation (10/07/2024 10:50 PM EDT) BARBITURATES NOT PRESENT 10/09/2024 1:33 PM EDT [facility] BENZODIAZEPINES PRESENT 1:33 PM EDT [facility] Nordiazepam 3 ng/mL 10/09/2024 1:33 PM EDT [facility] Temazepam 6 ng/mL 10/09/2024 1:33 PM EDT [facility] CANNABINOIDS NOT PRESENT 10/09/2024 1:33 PM EDT [facility] MICROSOFT DYNAMICS MANAGER ARCHITECT STIMULANTS NOT PRESENT 1:33 PM EDT [facility] OPIOID ANALGESICS PRESENT 025 1:33 PM EDT [facility] Oxycodone 300 ng/mL 10/09/2024 1:33 PM EDT [facility] Oxymorphone 32 ng/mL 10/09/2024 1:33 PM EDT [facility] Tramadol >1000 ng/mL 10/09/2024 1:33 PM EDT [facility] OPIOID ANTAGONISTS NOT PRESENT 10/09 1:33 PM EDT [facility] SEDATIVES/MUSCLE RELAXANTS NOT PRESENT 10/09/2024 1:33 PM EDT [facility] TRICYCLIC ANTIDEPRESSANTS NOT PRESENT 10/09/2024 1:33 PM EDT [facility] Urine 10/07/2024 10:5 0 PM EDT 10/08/2024 3:00 AM EDT Gerri Peterson MD URINE ORDERABLES Final Result Performing Organization Address City/State/[facility] Co de Phone Number [facility] [address] * Giardia Cryptosporidium Antigens (10/07/2024 10:50 PM EDT) Cryptosporidium Ag Negative Negative 2024 7:59 AM EDT [facility] Giardia Ag Negative Negative 10/08/2024 7:59 AM EDT [facility] Comment: Detection of Giardia and Cryptosporidium antigen is more sensitive and specific than microscopy. Because antigens are shed continuously, repeat testing is rarely warranted. Feces 10/07/2024 10:5 0 PM EDT 10/08/2024 1:53 AM EDT Comment:F us Bisi Hernandez DO MICROBIOLOGY - GENERAL ORDERABLE S Final Result [facility] [address] [place] [address], [facility] * (ABNORMAL) Urine Drug Screen Reflex to Confirmation (10/07/2024 10:50 PM EDT) Amphetamine, 500 ng/mL Cutoff Negative Negative 10/08/2024 3:00 AM EDT [facility] Barbiturates UR, 300 ng/mL Cutoff Negative Negative 10/08/2024 3:00 AM EDT [facility] Buprenorphine, 5 ng/mL Cutoff Negative Negative 10/08/2024 3:00 AM EDT [facility] Benzodiazepines UR, 300 ng/mL Cutoff Negative Negative 10/08/2024 3:00 AM EDT [facility] Cocaine UR, 300 ng/mL Cutoff Negative Negative 10/08/2024 3:00 AM EDT [facility] Methadone, UR, 300 ng/mL Cutoff Negative Negative 10/08/2024 3:00 AM EDT [facility] Opiates UR, 300 ng/mL Cutoff Negative Negative 10/08/2024 3:00 AM EDT [facility] Oxycodone, 100 ng/mL Cutoff Presumptive Positive(A) Negative 10/08/2024 3:00 AM EDT [facility] Tricyclic Antidepressants, 300 ng/mL Cutoff Negative Negative 10/08/2024 3:00 AM EDT [facility] Comment:This test has been d eveloped and its performance characteristics determined by [facility] which is certified [...] Cutoff Negative Negative 10/08/2024 3:00 AM EDT [facility] Comment:This is a screening method only and may be associated with false positive and/or false negative results. Results are not definitive without additional confirmatory testing by mass spectrometry. Fentanyl, 2 ng/mL Cutoff Negative Negative 10/08/2024 3:00 AM EDT [facility] Comment:This test has been d eveloped and its performance characteristics determined by [facility] which is certified [...] PM EDT 10/08/2024 2:08 AM EDT Narrative [facility] - 10/08/2024 3:00 AM EDT CONFIRMATION TO FOLLOW Gerri Peterson MD URINE ORDERABLES Final Result [facility] [address] [place] [address], [facility] * Comprehensive Drug Screen (10/07/2024 10:50 PM EDT) Creatinine, Ur CANCELED mg/dL 10/08/2024 7:09 AM EDT [facility] Comment:The released value 8 7.30 was canceled by YAQUELIN on 10/08/2024 07:09 BARBITURATES CANCELED [facility] Butalbital CANCELED [facility] Phenobarbital CANCELED [facility] Secobarbital CANCELED [facility] BENZODIAZEPINES CANCELED [facility] Alprazolam [facility]ED [facility] Clonazepam [facility] Diazepam [facility]ED [facility] Alpha-Hydroxyalprazo mcknight [facility] Lorazepam [facility] Midazolam [facility] Nordiazepam CANCELED [facility] Oxazepam [facility]ED [facility] Temazepam [facility]ED [facility] CANNABINOIDS CANCELED [facility] THC-COOH [facility]ED [facility] MICROSOFT DYNAMICS MANAGER ARCHITECT STIMULANTS CANCELED [facility] Cocaine Metabolite(benzoylec gonine) [facility]ELED [facility] Amphetamine [facility]ED [facility] Methamphetamine [facility]ED [facility] MDA [facility] MDEA [facility] Phencyclindine (PCP) [facility]ED [facility] OPIOID ANALGESICS [facility] Heroin Metabolite(6-RAMONA) [facility] Codeine [facility] Morphine [facility] Hydrocodone [facility] Hydromorphone [facility] Oxycodone [facility] Oxymorphone [facility] Meperidine [facility] Normeperidine [facility] Methadone [facility] Methadone Metabolite (EDDP) [facility] Tramadol [facility] Fentanyl [facility] Norfentanyl [facility] Sufentanil [facility] OPIOID ANTAGONISTS [facility] Buprenorphine [facility] Norbuprenorphine [facility] Naltrexone [facility] Naloxone [facility] SEDATIVES/MUSCLE RELAXANTS [facility] Carisoprodol [facility]ELED [facility] Meprobamate [facility] TRICYCLIC ANTIDEPRESSANTS [facility] Amitriptyline [facility] Clomipramine [facility] Desipramine [facility] Doxepin [facility] Imipramine [facility] Nortriptyline [facility] Urine Creatinine CANCELED mg/dL [facility] Nitrite [facility] Glutaraldehyde [facility]ED [facility] pH CANCELED 10/08/2024 7:09 AM EDT [facility] Comment:The released value 5 .6 was canceled by YAQUELIN on 10/08/2024 07:09 Specific [place] CANCELED 10/09/19 7:09 AM EDT [facility] Comment:The released value 1 .009 was canceled by YAQUELIN on 10/08/2024 07:09 Bleach CANCELED [facility] Pyridinium Chlorochromate [facility]ELED [facility] Urine 10/07/2024 10:5 0 PM EDT 10/08/2024 2:07 AM EDT Narrative [facility] - 10/08/2024 7:09 AM EDT See accn [id number] Gerri Peterson MD URINE ORDERABLES Edited Result - Final Performing Organization Address City/[facility]/ZIP Co de Phone Number [facility] [address] [facility]. [address] * Ova and Parasite Comprehensive w/ Giardia/Crypto (10/07/2024 10:50 PM EDT) O & P Method: Concentration and Trichrome Stain [facility] Results No Amoeba, Ova, Or Parasites Seen. -- O and P examination of additional specimens is recommended only for symptomatic patients, immunosuppressed patients or those with an appropriate travel history. [facility] Feces FECES / Unknown 10/07/2024 1 0:50 PM EDT 10/08/2024 1:53 AM EDT Comment:F Bisi Hernandez DO MICROBIOLOGY - GENERAL ORDERABLE S Final Result Performing Organization Address [facility]/ZIP Co de Phone Number [facility] [address] [facility]. [address] * Enteric Pathogen Panel (10/07/2024 10:50 PM EDT) Pathologist [facility] Campylobacter Group (C. ecoli, C. jejuni, C. trino) Not Detected Not Detected 10/08/2024 4:40 AM EDT [facility] Salmonella species Not Detected Not Detected 10/08/2024 4:40 AM EDT [facility] Shigella species Not Detected Not Detected 10/08/2024 4:40 AM EDT [facility] Vibrio Group (Vibrio cholerae, Vibrio parahaemolyticus) Not Detected Not Detected 10/08/2024 4:40 AM EDT [facility] Yersinia enterocolitica Not Detected Not Detected 10/08/2024 4:40 AM EDT [facility] Shiga toxin 1 Not Detected Not Detected 10/08/2024 4:40 AM EDT [facility] Shiga toxin 2 Not Detected Not Detected 10/08/2024 4:40 AM EDT [facility] Norovirus Not Detected Not Detected 10/08/2024 4:40 AM EDT [facility] Rotavirus Not Detected Not Detected 10/08/2024 4:40 AM EDT [facility] Comment: The Enteric Pathogen Panel [...] ORDERABLE S Final Result Performing Organization Address City/[facility]/ZIP Co de Phone Number [facility] [address] [facility]. [address] * Hepatitis C Antibody (10/07/2024 6:38 PM EDT) HCV Ab Nonreactive Nonreactive 10/07/2024 7:56 PM EDT [facility] Comment:Health Department no tified in accordance with reportable infectious disease guidelines. Serum 10/07/2024 6:38 PM EDT 10/07/2024 6:52 PM EDT Narrative [facility] - 10/07/2024 7:56 PM EDT Antibodies to HCV not detected; does not exclude the possibility of exposure to HCV. Gerri Peterson MD LAB BLOOD ORDERABLES Final Resu lt [facility] [address] [facility]. [address] * Hepatitis B Surface Antibody, Quantitati (10/07/2024 6:38 PM EDT) Hep B S Ab Nonreactive Nonreactive 10/07/2024 8:00 PM EDT [facility] HBSAB NUMBER 7.88 0.00 - 7.99 mIU/mL 10/07/2024 8:00 PM EDT [facility] Serum 10/07/2024 6:38 PM EDT 10/07/2024 6:52 PM EDT [facility] - 10/07/2024 8:00 PM EDT Individual is considered not immune to HBV infection. Gerri Peterson MD LAB BLOOD ORDERABLES Final Resu lt Performing Organization Address [facility]/ZIP Co de Phone Number [facility] [address] [facility]. [address] * Hepatitis B surface antigen (10/07/2024 6:38 PM EDT) Hep B Surface Ag Nonreactive Nonreactive 10/07/2024 7:51 PM EDT [facility] Comment:Health Department no tified in accordance with reportable infectious disease guidelines. Serum 10/07/2024 6:38 PM EDT 10/07/2024 6:52 PM EDT [facility] - 10/07/2024 7:51 PM EDT Specimen is considered negative for HBsAg. Gerri Peterson MD LAB BLOOD ORDERABLES Final Resu lt Performing Organization Address [facility] Co de Phone Number [facility] [address] [facility]. [address] * Hepatitis A Antibody Total (10/07/2024 6:38 PM EDT) Anti-HAV Total (IgG + IgM) Nonreactive 10/07/2024 7:53 PM EDT [facility] Serum 10/07/2024 6:38 PM EDT 10/07/2024 6:52 PM EDT [facility] - 10/07/2024 7:53 PM EDT HAV antibodies not detected Gerri Peterson MD LAB BLOOD ORDERABLES Final Resu lt [facility] [address] * Hepatitis A IgM (10/07/2024 6:38 PM EDT) Hep A IgM Nonreactive Nonreactive 10/07/2024 7:46 PM EDT [facility] Serum 10/07/2024 6:38 PM EDT 10/07/2024 6:52 PM EDT Narrative [facility] - 10/07/2024 7:46 PM EDT IgM anti-HAV not detected. Does not exclude the possibility of exposure to or infection with HAV. Levels of IgM anti-HAV may be below the cut-off in early infection. us Gerri Peterson MD LAB BLOOD ORDERABLES Final Resu lt [facility] [address] [facility]. [address] * (ABNORMAL) Lipid Profile (10/07/2024 6:37 PM EDT) Non-HDL Cholesterol, Calculated See Note 0 - 129 mg/dL 10/07/2024 7:42 PM EDT [facility] Comment: Desirable: < 130 mg/dL Above Desirable: 130-159 mg/dL Borderline High: 160-189 mg/dL High: 190-219 mg/dL Very High: > 219 mg/dL Unable to calculate result either because contributing result(s) are outside of reportable range or are not available. Cholesterol, Total <25 0 - 200 mg/dL 10/07/2024 7:42 PM EDT [facility] Triglycerides 30 10 - 149 mg/dL 10/07/2024 7:42 PM EDT [facility] HDL 4(L) 60 - 92 mg/dL 10/07/2024 7:42 PM EDT [facility] Comment: LIPID PROFILE INTERPRETATION CHOLESTEROL,TOTAL(mg/dL) [...] Cholesterol See Note mg/dL 7:42 PM EDT [facility] Comment:Unable to calculate result either because contributing result(s) are outside of reportable range or are not available. Plasma 10/07/2024 6:37 PM EDT 10/07/2024 7:06 PM EDT Narrative [facility] - 10/07/2024 7:42 PM EDT LDL cholesterol calculated using the Friedewald equation. us Gerri Peterson MD LAB BLOOD ORDERABLES Final Resu lt [facility] [address] * (ABNORMAL) Alpha 1 Antitrypsin AAT Quant & Mutation (10/07/2024 6:37 PM EDT) A-1 Antitrypsin 99(L) 101 - 187 mg/dL 10/09/2024 4:28 AM EDT [facility] A-1 Antitrypsin Pheno Comment 10/10/2024 4:05 PM EDT [facility] Comment: A1A Phenotype is consistent with a heterozygous phenotype consisting of one M (normal) allele and one allele that cannot be identified at this time. The unknown allele is not consistent with Z (deficient), S (deficient), or F (deficient). MM Phenotype is considered to be normal , producing normal serum levels of [id number] inhibitor and not associated with clinical disease. [...] PM EDT 10/10/2024 4:08 PM EDT Narrative [facility] - 10/10/2024 4:08 PM EDT PERFORMED AT: [facility] [address] [id number] DECAY CONTROL OPERATOR: Bassam Khalil, PhD PHONE: [phone] PERFORMED AT: [facility] [address] [id number] DECAY CONTROL OPERATOR: Mandy Abdul MD PHONE: [phone] Gerri Peterson MD LAB BLOOD ORDERABLES Final Resu lt Performing Organization Address [facility] Co de Phone Number [facility] [address] [place] [address] * (ABNORMAL) CMV IgG Antibody (10/07/2024 6:37 PM EDT) CMV IgG Positive(A ) Negative 10/07/2024 8:26 PM EDT [facility] CMV IGG NUM 8.40(H) 0.00 - 0.59 U/mL 10/07/2024 8:26 PM EDT [facility] Serum 10/07/2024 6:37 PM EDT 10/07/2024 6:50 PM EDT Gerri Peterson MD LAB BLOOD ORDERABLES Final Resu lt Performing Organization Address City/[facility]/ZIP Co de Phone Number [facility] [address] [place] * HIV-1 and HIV-2 Antibodies w Reflex (10/07/2024 6:37 PM EDT) Pathologist [facility] HIV 1+2 AB/AGN Nonreactive Nonreactive 10/07/2024 7:54 PM EDT [facility] Serum 10/07/2024 6:37 PM EDT 10/07/2024 7:06 PM EDT Narrative [facility] - 10/07/2024 7:54 PM EDT \HIVRNR Gerri Peterson MD LAB BLOOD ORDERABLES Final Resu lt [facility] [address] [place] [address]. [address] * TSH (Thyroid Stimulating Hormone) (10/07/2024 6:37 PM EDT) Pathologist [facility] TSH 0.81 0.45 - 4.12 uIU/mL 10/07/2024 8:17 PM EDT [facility] Serum 10/07/2024 6:37 PM EDT 10/07/2024 6:50 PM EDT Gerri Peterson MD LAB BLOOD ORDERABLES Final Resu lt [facility] [address] [place] [address]. [address] * Katie-Watkins virus early antigen antibody, IgG (10/07/2024 6:37 PM EDT) Pathologist [facility] EBV Early Antigen Ab, IgG <9.0 0.0 - 8.9 U/mL 10/09/2024 2:16 PM EDT [facility] Comment: Negative < 9.0 Equivocal 9.0 - 10.9 Positive >10.9 Serum Frozen 10/07/2024 6:37 PM EDT 10/09/2024 3:07 PM EDT Narrative [facility] - 10/09/2024 3:07 PM EDT PERFORMED AT: [facility] [address] [place], [place] [id number] DECAY CONTROL OPERATOR: Bassam Khalil, PhD PHONE: [phone] Gerri Peterson MD LAB BLOOD ORDERABLES Final Resu lt Performing Organization Address [facility] Co de Phone Number [facility] [address] [place] [address], [facility] * (ABNORMAL) Varicella zoster antibody, IgG (10/07/2024 6:37 PM EDT) Pathologist [facility] Varicella IgG Positive( A) Negative S/CO 10/07/2024 8:34 PM EDT [facility] Comment:Result indicates the presence of detectable VZV IgG antibodies. A positive result is generally indicative of exposure to the pathogen or administration of specific immunoglobulins, but it is no indication of active infection or stage of disease. This test is not approved for determining vaccine-induced immunity to varicella zoster virus. VZV NUM 6.76(H) 0.00 - 0.99 S/CO 10/07/2024 8:34 PM EDT [facility] Serum 10/07/2024 6:37 PM EDT 10/07/2024 6:50 PM EDT Gerri Peterson MD LAB BLOOD ORDERABLES Final Resu lt Performing Organization Address City/[facility] Co de Phone Number [facility] [address] [place] [address], [facility] * Toxoplasma gondii antibody, IgG (10/07/2024 6:37 PM EDT) Pathologist [facility] Toxoplasma Gondii IgG <3.0 0.0 - 7.1 IU/mL 10/09/2024 7:53 AM EDT [facility] Comment: Negative <7.2 Equivocal 7.2 - 8.7 Positive >8.7 Serum 10/07/2024 6:37 PM EDT 10/09/2024 8:07 AM EDT Narrative [facility] - 10/09/2024 8:07 AM EDT PERFORMED AT: [facility] [address] [place], [place] [id number] DECAY CONTROL OPERATOR: Bassam Khalil, PhD PHONE: [phone] Gerri Peterson MD LAB BLOOD ORDERABLES Final Resu lt Performing Organization Address City/[facility]/ZIP Co de Phone Number [facility] [address] [facility]. [address] * Syphilis Screening (Trepia) (10/07/2024 6:37 PM EDT) Treponema Pallidum Negative Negative 10/07/2024 8:27 PM EDT [facility] Comment: No serological evidence of infection with Treponema pallidum (incubating or early primary syphilis cannot be excluded). Serum 10/07/2024 6:37 PM EDT 10/07/2024 6:50 PM EDT Gerri Peterson MD LAB BLOOD ORDERABLES Final Resu lt Performing Organization Address [facility] Co de Phone Number [facility] [address] [facility]. [address] * Strongyloides Ab (10/07/2024 6:37 PM EDT) Strongyloides Ab Negative Negative 10/11/19 11:51 AM EDT [facility] Serum 10/07/2024 6:37 PM EDT 10/10/2024 12:07 PM EDT Narrative [facility] - 10/10/2024 12:07 PM EDT PERFORMED AT: [facility] [address] [id number] DECAY CONTROL OPERATOR: Mandy Abdul MD PHONE: [phone] Gerri Peterson MD LAB BLOOD ORDERABLES Final Resu lt Performing Organization Address City/[facility] Co de Phone Number [facility] [address] [facility]. [address] * Phosphatidylethanol Confirmation, B (10/07/2024 6:37 PM EDT) PETH 16:0/18.1 (POPETH) <10 Cutoff: 10 ng/mL 10/10/2024 10:42 AM EDT [facility] Comment: Phosphatidylethanol (PEth) [...] Cutoff: 10 ng/mL 10/10/2024 10:42 AM EDT [facility] Comment: PEth 16:0/18:2 (PLPEth) Reference ranges are not well established PEth Interpretation Negative. 10/10 10:42 AM EDT [facility] Comment: ADDITIONAL INFORMATION This report is intended for use in clinical monitoring and management of patients. It is not intended for use in employment-related testing. This test was developed and its performance characteristics determined by [facility] in a manner consistent with CLIA requirements. This test has not been cleared or approved by the U.S. Food and Drug Administration. Test Performed by: [facility] [place] [id number] Rehab Spec: Kathy Ortiz Ph.D.; CLIA# [id number] Whole Blood 10/07/2024 6:37 PM EDT 10/10/2024 10:42 AM EDT us Gerri Peterson MD LAB BLOOD ORDERABLES Final Resu lt [facility] [address] [place] [address], [facility] * (ABNORMAL) MMR(IgG) Panel (Measles, Mumps, Rubella) (10/07/2024 6:37 PM EDT) Mumps IgG Positive 10/07/2024 8:26 PM EDT [facility] MUMPS IGG NUM 77.80(H) 0.0 - 8.9 U/mL 10/07/2024 8:26 PM EDT [facility] Rubella IgG Scr Positive 10/07/2024 8:28 PM EDT [facility] RUB NUM 3.04(H) 0.00 - 0.89 INDEX 10/07/2024 8:28 PM EDT [facility] Rubeola Ab, IgG Positive 10/07/2024 8:26 PM EDT [facility] RUB IGG NUM 192.00(H) 0.00 - 13.40 U/mL 10/07/2024 8:26 PM EDT [facility] Serum 10/07/2024 6:37 PM EDT 10/07/2024 6:50 PM EDT Narrative [facility] - 10/07/2024 8:28 PM EDT Presence of detectable measles virus IgG antibodies. A positive result generally indicates exposure to measles virus or previous vaccination. Presence of detectable mumps virus IgG antibodies. A positive result generally indicates past exposure to mumps virus or previous vaccination. Sample is considered positive for IgG antibodies to rubella virus. Result [facility] Gerri Peterson MD LAB BLOOD ORDERABLES Final Resu lt [facility] [address] * IgA (10/07/2024 6:37 PM EDT) IgA 227.0 70.0 - 400.0 mg/dL 10/08/2024 11:07 AM EDT [facility] Comment:Please interpret the se findings in conjunction with clinical findings, protein electrophoresis, and immunotyping/immunofixation results. Serum 10/07/2024 6:37 PM EDT 10/07/2024 6:50 PM EDT Gerri Peterson MD LAB BLOOD ORDERABLES Final Resu lt [facility] [address] [facility]. [address] * Ethanol, Serum (10/07/2024 6:37 PM EDT) Ethanol <10 0 - 10 mg/dL 10/07/2024 8:36 PM EDT [facility] Serum 10/07/2024 6:37 PM EDT 10/07/2024 6:50 PM EDT Gerri Peterson MD LAB BLOOD ORDERABLES Final Resu lt Performing Organization Address [facility]/ZIP Co de Phone Number [facility] [address] [place] [address]. [address] * ABO/Rh - Second (10/07/2024 6:37 PM EDT) ABO Grouping O 10/07/2024 7:16 PM EDT [facility] Rh Type Positive 10/07/2024 7:16 PM EDT [facility] Blood 10/07/2024 6:37 PM EDT 10/07/2024 6:56 PM EDT Narrative [facility] - 10/07/2024 7:18 PM EDT This is not a duplicate order. It is required that ABO be drawn twice for LIVER TRANSPLANT Gerri Peterson MD BLOOD BANK TEST ORDERABLES Denisse l Result Performing Organization Address City/[facility]/ZIP Co de Phone Number [facility] [address] [facility]. [address] * ABO/Rh- Initial (10/07/2024 6:37 PM EDT) ABO Grouping O 10/07/2024 7:59 PM EDT [facility] Rh Type Positive 10/07/2024 7:59 PM EDT [facility] Blood 10/07/2024 6:37 PM EDT 10/07/2024 7:25 PM EDT us Gerri Peterson MD BLOOD BANK TEST ORDERABLES Denisse l Result [facility] [address] [place] [address], [facility] * X-ray Mandible minimum 4-views (10/07/2024 6:19 [...] EXAM: US ABDOMEN COMPLETE EXAM: US DUPLEX [id number] COMPLETE INDICATION: elevated bilirubin COMPARISON: Ultrasound and [...] EXAM: US ABDOMEN COMPLETE EXAM: US DUPLEX [id number] COMPLETE INDICATION: elevated bilirubin COMPARISON: Ultrasound and [...] 4:26 PM EDT us Bisi Hernandez DO [facility] [place] ORDERABLES Final Result * US Duplex [id number] Comp (10/07/2024 3:48 PM EDT) Anatomical Region [...] EXAM: US ABDOMEN COMPLETE EXAM: US DUPLEX [id number] COMPLETE INDICATION: elevated bilirubin COMPARISON: Ultrasound and [...] EXAM: US ABDOMEN COMPLETE EXAM: US DUPLEX [id number] COMPLETE INDICATION: elevated bilirubin COMPARISON: Ultrasound and [...] Scan (10/07/2024 3:30 PM EDT) us Scanning Uchhi SCAN DOCS [...] LAB BLOOD ORDERABLES Final Result [facility] [address] * (ABNORMAL) Hepatic Function Panel (10/07/2024 6:00 AM EDT) Total Bilirubin 9.7(H) 0.0 - 1.5 mg/dL 10/07/2024 7:10 AM EDT [facility] Bilirubin, Direct 5.21(H) 0.00 - 0.40 mg/dL 10/07/2024 7:10 AM EDT [facility] AST 39 13 - 39 U/L 10/07/2024 7:10 AM EDT [facility] ALT 18 7 - 52 U/L 10/07/2024 7:10 AM EDT [facility] Alkaline Phosphatase 98 36 - 125 U/L 10/07/2024 7:10 AM EDT [facility] Total Protein 4.8(L) 6.4 - 8.9 g/dL 10/07/2024 7:10 AM EDT [facility] Albumin 3.6 3.5 - 5.7 g/dL 10/07/2024 7:10 AM EDT [facility] Bilirubin, Indirect 4.49(H) 0.00 - 1.10 mg/dL 10/07/2024 7:10 AM EDT [facility] Plasma 10/07/2024 6:00 AM EDT 10/07/2024 6:39 AM EDT us Eileen Schroeder MD, PhD LAB BLOOD ORDERABLES Final Result Performing Organization Address [facility]/ZIP Co de Phone Number [facility] [address] * Magnesium (10/07/2024 6:00 AM EDT) Magnesium 1.7 1.5 - 2.5 mg/dL 10/07/2024 7:10 AM EDT [facility] Plasma 10/07/2024 6:00 AM EDT 10/07/2024 6:39 AM EDT us Eileen Schroeder MD, PhD LAB BLOOD ORDERABLES Final Result Performing Organization Address [facility] Phone Number [facility] [address] * (ABNORMAL) Renal Function Panel w/EGFR (10/07/2024 6:00 AM EDT) Sodium 132(L) 133 - 146 mmol/L 10/07/2024 7:10 AM EDT [facility] Potassium 3.9 3.5 - 5.3 mmol/L 10/07/2024 7:10 AM EDT [facility] Chloride 103 98 - 110 mmol/L 10/07/2024 7:10 AM EDT [facility] CO2 19(L) 21 - 33 mmol/L 10/07/2024 7:10 AM EDT [facility] Anion Gap 10 3 - 16 mmol/L 10/07/2024 7:10 AM EDT [facility] BUN 64(H) 7 - 25 mg/dL 10/07/2024 7:10 AM EDT [facility] Creatinine 3.38(H) 0.60 - 1.30 mg/dL 10/07/2024 7:10 AM EDT [facility] Glucose 111(H) 70 - 100 mg/dL 10/07/2024 7:10 AM EDT [facility] Calcium 9.1 8.6 - 10.3 mg/dL 10/07/2024 7:10 AM EDT [facility] Phosphorus 4.2 2.1 - 4.7 mg/dL 10/07/2024 7:10 AM EDT [facility] Albumin 3.6 3.5 - 5.7 g/dL 10/07/2024 7:10 AM EDT [facility] Osmolality, Calculated 293 278 - 305 mOsm/kg 10/07/2024 7:10 AM EDT [facility] EGFR 22 10/07/2024 7:10 AM EDT [facility] Comment:As of 2021, [...] MD, PhD LAB BLOOD ORDERABLES Final Result [facility] [address] * (ABNORMAL) CBC (10/07/2024 6:00 AM EDT) WBC 3.3(L) 3.8 - 10.8 10E3/uL 10/07/2024 7:55 AM EDT [facility] RBC 2.06(L) 4.20 - 5.80 10E6/uL 10/07/2024 7:55 AM EDT [facility] Hemoglobin 7.4(L) 13.2 - 17.1 g/dL 10/07/2024 7:55 AM EDT [facility] Hematocrit 21.5(L) 38.5 - 50.0 % 10/07/2024 7:55 AM EDT [facility] MCV 104.1(H) 80.0 - 100.0 fL 10/07/2024 7:55 AM EDT [facility] MCH 35.8(H) 27.0 - 33.0 pg 10/07/2024 7:55 AM EDT [facility] MCHC 34.4 32.0 - 36.0 g/dL 10/07/2024 7:55 AM EDT [facility] RDW 17.5(H) 11.0 - 15.0 % 10/07/2024 7:55 AM EDT [facility] Platelets 35(L) 140 - 400 10E3/uL 10/07/2024 7:55 AM EDT [facility] Comment: Specimen checked for clots. None detected. Slide Reviewed for PLT Clumps. None Seen. _Platelet Morphology Normal _Platelets Appear Decreased Platelet Estimate Decreased 10/07/2024 7:55 AM EDT [facility] MPV 8.0 7.5 - 11.5 fL 10/07/2024 7:55 AM EDT [facility] Whole Blood 10/07/2024 6:00 AM EDT 10/07/2024 6:40 AM EDT Narrative [facility] - 10/07/2024 7:55 AM EDT Peripheral blood smear was scanned per review criteria approved by the laboratory medical office representative. us Eileen Schroeder MD, PhD LAB BLOOD ORDERABLES Final Result [facility] [address] [place] [address], [facility] * AFP Tumor Marker (10/07/2024 6:00 AM EDT) AFP-Tumor Marker 2.0 0.0 - 9.0 ng/mL 10/07/2024 7:11 AM EDT [facility] Serum 10/07/2024 6:00 AM EDT 10/07/2024 6:39 AM EDT Narrative [facility] - 10/07/2024 7:11 AM EDT The testing method for AFP is a chemiluminescent immunoassay manufactured by [employer] Concentrations of AFP obtained by different assay methods or kits may vary and cannot be used interchangeably. AFP results cannot be interpreted as absolute evidence of the presence or absence of malignant disease. Shila Rivera MD LAB BLOOD ORDERABLES Final Resul t Performing Organization Address City/[facility]/ZIP Co de Phone Number [facility] [address] [facility]. [address] * Vancomycin, random (10/07/2024 6:00 AM EDT) Vancomycin Random 21.1 ug/mL 10/07/2024 7:08 AM EDT [facility] Comment:Reference range not established for this test. Plasma 10/07/2024 6:00 AM EDT 10/07/2024 6:39 AM EDT us Kiet Gardiner PharmD LAB BLOOD ORDERABLES Final Re sult Performing Organization Address [facility] Co de Phone Number [facility] [address] [facility]. [address] * Osmolality (10/06/2024 2:50 PM EDT) Osmolality, Measured 304 278 - 305 mOsm/kg 10/06/2024 3:49 PM EDT [facility] Serum 10/06/2024 2:50 PM EDT 10/06/2024 2:56 PM EDT Chari Vanegas MD LAB BLOOD ORDERABLES Final Resul t Performing Organization Address [facility] Co de Phone Number [facility] [address] [facility]. [address] * CT Head WO contrast (10/06/2024 [...] Ur <15 mmol/L 10/06/2024 1:56 PM EDT [facility] Comment:Reference range not established for this test. Urine 10/06/2024 1:25 PM EDT 10/06/2024 1:32 PM EDT us Chari Vanegas MD URINE ORDERABLES Final Result Performing Organization Address [facility] Co de Phone Number [facility] [address] [facility]. [address] * Potassium, urine, random (10/06/2024 1:25 PM EDT) Potassium Urine Random 50.0 mmol/L 10/06/2024 1:56 PM EDT [facility] Comment:Reference range not established for this test. Urine 10/06/2024 1:25 PM EDT 10/06/2024 1:32 PM EDT us Chari Vanegas MD URINE ORDERABLES Final Result Performing Organization Address [facility] Co de Phone Number [facility] [address] [facility]. [address] * Sodium, urine, random (10/06/2024 1:25 PM EDT) Sodium, Ur <10 mmol/L 10/06/2024 1:56 PM EDT [facility] Comment:Reference range not established for this test. Urine 10/06/2024 1:25 PM EDT 10/06/2024 1:32 PM EDT us Chari Vanegas MD URINE ORDERABLES Final Result Performing Organization Address [facility] Co de Phone Number [facility] [address] [facility]. [address] * Creatinine, Urine, Random (10/06/2024 1:25 PM EDT) Creatinine, Urine 87.40 mg/dL 10/06/2024 1:56 PM EDT [facility] Comment:Reference range not established for this test. Urine 10/06/2024 1:25 PM EDT 10/06/2024 1:32 PM EDT us Chari Vanegas MD URINE ORDERABLES Final Result [facility] [address] [facility]. [address] * Osmolality, Urine (10/06/2024 1:25 PM EDT) Osmolality, Ur 386 50 - 1,200 mOsm/kg 10/06/2024 1:55 PM EDT [facility] Urine 10/06/2024 1:25 PM EDT 10/06/2024 1:32 PM EDT us Chari Vanegas MD URINE ORDERABLES Final Result Performing Organization Address [facility] Co de Phone Number [facility] [address] [facility]. [address] * Urine Drug Confirmation (10/06/2024 11:51 [...] PRESENT 10/09/2024 3:23 PM EDT [facility] MI[employer]OSOFT DYNAM[employer] MANAGER ARCHITECT STIMULANTS NOT PRESENT 3:23 PM EDT [facility] OPIOID ANALGESICS PRESENT 025 3:23 PM EDT [facility] Oxycodone 329 ng/mL 10/09/2024 3:23 PM EDT [facility] Oxymorphone 61 ng/mL 10/09/2024 3:23 PM EDT [facility] Tramadol >1000 ng/mL 10/09/2024 3:23 PM EDT [facility] OPIOID ANTAGONISTS NOT PRESENT 10/09 3:23 PM EDT [facility] SEDATIVES/MUSCLE RELAXANTS NOT PRESENT 10/09/2024 3:23 PM EDT [facility] TRICYCLIC ANTIDEPRESSANTS NOT PRESENT 10/09/2024 3:23 PM EDT [facility] Urine 10/06/2024 11:5 1 AM EDT 10/06/2024 1:13 PM EDT Bisi Hernandez DO URINE ORDERABLES Final Result [facility] [address] [place] [address], [facility] * (ABNORMAL) Urine Drug Screen Reflex to Confirmation (10/06/2024 11:51 AM EDT) Amphetamine, 500 ng/mL Cutoff Negative Negative 10/06/2024 1:13 PM EDT [facility] Barbiturates UR, 300 ng/mL Cutoff Negative Negative 10/06/2024 1:13 PM EDT [facility] Buprenorphine, 5 ng/mL Cutoff Negative Negative 10/06/2024 1:13 PM EDT [facility] Benzodiazepines UR, 300 ng/mL Cutoff Negative Negative 10/06/2024 1:13 PM EDT [facility] Cocaine UR, 300 ng/mL Cutoff Negative Negative 10/06/2024 1:13 PM EDT [facility] Methadone, UR, 300 ng/mL Cutoff Negative Negative 10/06/2024 1:13 PM EDT [facility] Opiates UR, 300 ng/mL Cutoff Negative Negative 10/06/2024 1:13 PM EDT [facility] Oxycodone, 100 ng/mL Cutoff Presumptive Positive(A) Negative 10/06/2024 1:13 PM EDT [facility] Tricyclic Antidepressants, 300 ng/mL Cutoff Negative Negative 10/06/2024 1:13 PM EDT [facility] Comment:This test has been d eveloped and its performance characteristics determined by [facility] which is certified [...] Cutoff Negative Negative 10/06/2024 1:13 PM EDT [facility] Comment:This is a screening method only and may be associated with false positive and/or false negative results. Results are not definitive without additional confirmatory testing by mass spectrometry. Fentanyl, 2 ng/mL Cutoff Negative Negative 10/06/2024 1:13 PM EDT [facility] Comment:This test has been d eveloped and its performance characteristics determined by [facility] which is certified [...] AM EDT 10/06/2024 11:58 AM EDT Narrative [facility] - 10/06/2024 1:13 PM EDT CONFIRMATION TO FOLLOW [facility] DO URINE ORDERABLES Final Result Performing Organization Address City/[facility]/ZIP Co de Phone Number [facility] [address] [place] [address] * Chloride, urine, random (10/06/2024 11:51 AM EDT) Chloride, Ur <15 mmol/L 10/06/2024 1:13 PM EDT [facility] Comment:Reference range not established for this test. Urine 10/06/2024 11:5 1 AM EDT 10/06/2024 11:57 AM EDT Safe Bulkersella DO URINE ORDERABLES Final Result Performing Organization Address [facility] Co de Phone Number [facility] [address] * Potassium, urine, random (10/06/2024 11:51 AM EDT) Potassium Urine Random 49.0 mmol/L 10/06/2024 1:13 PM EDT [facility] Comment:Reference range not established for this test. Urine 10/06/2024 11:5 1 AM EDT 10/06/2024 11:57 AM EDT Bisi Mary DO URINE ORDERABLES Final Result Performing Organization Address City/[facility]/ZIP Co de Phone Number [facility] [address] [facility]. [address] * Sodium, urine, random (10/06/2024 11:51 AM EDT) Sodium, Ur <10 mmol/L 10/06/2024 1:13 PM EDT [facility] Comment:Reference range not established for this test. Urine 10/06/2024 11:5 1 AM EDT 10/06/2024 11:57 AM EDT Safe Bulkersana maría DO URINE ORDERABLES Final Result Performing Organization Address [facility] de Phone Number [facility] [address] [facility]. [address] * Urinalysis w/Rfl to Microscopic (10/06/2024 11:51 AM EDT) Color, UA Yellow Yellow,Straw 10/06/2024 12:25 PM EDT [facility] Clarity, UA Clear Clear 10/06/2024 12:25 PM EDT [facility] Specific [place], UA 1.014 1.005 - 1.035 10/06/2024 12:25 PM EDT [facility] pH, UA 6.0 5.0 - 8.0 10/06/2024 12:25 PM EDT [facility] Protein, UA Negative Negative mg/dL 10/06/2024 12:25 PM EDT [facility] Glucose, UA Negative Negative mg/dL 10/06/2024 12:25 PM EDT [facility] Ketones, UA Negative Negative mg/dL 10/06/2024 12:25 PM EDT [facility] Bilirubin, UA Negative Negative 10/06/2024 12:25 PM EDT [facility] Blood, UA Negative Negative 10/06/2024 12:25 PM EDT [facility] Nitrite, UA Negative Negative 10/06/2024 12:25 PM EDT [facility] Urobilinogen, UA <2.0 0.2 - 1.9 mg/dL 10/06/2024 12:25 PM EDT [facility] Leukocyte Esterase, UA Negative Negative 10/06/2024 12:25 PM EDT [facility] Urine 10/06/2024 11:5 1 AM EDT 10/06/2024 11:57 AM EDT Narrative [facility] - 10/06/2024 12:25 PM EDT Microscopic testing is not performed when the dipstick is negative for blood, leukocyte, protein and nitrite. us Bisi Hernandez DO URINE ORDERABLES Final Result Performing Organization Address [facility]/ZIP Co de Phone Number [facility] [address] * Lactic Acid, STAT (10/06/2024 7:38 AM EDT) Lactate 0.9 0.5 - 2.2 mmol/L 10/06/2024 8:05 AM EDT [facility] Plasma 10/06/2024 7:38 AM EDT 10/06/2024 7:42 AM EDT us Chari Vanegas MD LAB BLOOD ORDERABLES Final Resul t [facility] [address] [facility]. [address] * (ABNORMAL) CBC, STAT (10/06/2024 7:37 AM EDT) WBC 5.6 3.8 - 10.8 10E3/uL 10/06/2024 8:22 AM EDT [facility] RBC 2.50(L) 4.20 - 5.80 10E6/uL 10/06/2024 8:22 AM EDT [facility] Hemoglobin 9.0(L) 13.2 - 17.1 g/dL 10/06/2024 8:22 AM EDT [facility] Hematocrit 25.3(L) 38.5 - 50.0 % 10/06/2024 8:22 AM EDT [facility] MCV 101.2(H) 80.0 - 100.0 fL 10/06/2024 8:22 AM EDT [facility] MCH 36.0(H) 27.0 - 33.0 pg 10/06/2024 8:22 AM EDT [facility] MCHC 35.6 32.0 - 36.0 g/dL 10/06/2024 8:22 AM EDT [facility] RDW 17.7(H) 11.0 - 15.0 % 10/06/2024 8:22 AM EDT [facility] Platelets 52(L) 140 - 400 10E3/uL 10/06/2024 8:22 AM EDT [facility] Comment: Specimen checked for clots. None detected. Slide Reviewed for PLT Clumps. None Seen. MPV 8.2 7.5 - 11.5 fL 10/06/2024 8:22 AM EDT [facility] Whole Blood 10/06/2024 7:37 AM EDT 10/06/2024 7:43 AM EDT us Chari Vanegas MD LAB BLOOD ORDERABLES Final Resul t [facility] [address] [place] [address], [facility] * (ABNORMAL) Comprehensive Metabolic Panel (10/06/2024 7:37 AM EDT) Sodium 129(L) 133 - 146 mmol/L 10/06/2024 8:16 AM EDT [facility] Potassium 4.4 3.5 - 5.3 mmol/L 10/06/2024 8:16 AM EDT [facility] Chloride 100 98 - 110 mmol/L 10/06/2024 8:16 AM EDT [facility] CO2 18(L) 21 - 33 mmol/L 10/06/2024 8:16 AM EDT [facility] Anion Gap 11 3 - 16 mmol/L 10/06/2024 8:16 AM EDT [facility] BUN 62(H) 7 - 25 mg/dL 10/06/2024 8:16 AM EDT [facility] Creatinine 3.40(H) 0.60 - 1.30 mg/dL 10/06/2024 8:16 AM EDT [facility] Glucose 98 70 - 100 mg/dL 10/06/2024 8:16 AM EDT [facility] Calcium 9.5 8.6 - 10.3 mg/dL 10/06/2024 8:16 AM EDT [facility] Total Bilirubin 14.3(H) 0.0 - 1.5 mg/dL 10/06/2024 8:16 AM EDT [facility] AST 57(H) 13 - 39 U/L 10/06/2024 8:16 AM EDT [facility] ALT 29 7 - 52 U/L 10/06/2024 8:16 AM EDT [facility] Alkaline Phosphatase 158(H) 36 - 125 U/L 10/06/2024 8:16 AM EDT [facility] Total Protein 5.6(L) 6.4 - 8.9 g/dL 10/06/2024 8:16 AM EDT [facility] Albumin 3.6 3.5 - 5.7 g/dL 10/06/2024 8:16 AM EDT [facility] Osmolality, Calculated 286 278 - 305 mOsm/kg 10/06/2024 8:16 AM EDT [facility] EGFR 22 10/06/2024 8:16 AM EDT [facility] Comment:As of 2021, [...] MD LAB BLOOD ORDERABLES Final Resul t [facility] [address] [place] [address], [facility] * (ABNORMAL) Venous Blood Gas, Line/Syringe, STAT (10/06/2024 7:37 AM EDT) PH-Line Draw 7.27(L) 7.32 - 7.42 10/06/2024 7:46 AM EDT [facility] PCO2-Line Draw 36(L) 41 - 51 mm Hg 10/06/2024 7:46 AM EDT [facility] PO2-Line Draw 44(H) 25 - 40 mm Hg 10/06/2024 7:46 AM EDT [facility] HCO3-Line Draw 17(L) 24 - 28 mmol/L 10/06/2024 7:46 AM EDT [facility] CO2 Content-Line Draw 18(L) 25 - 29 mmol/L 10/06/2024 7:46 AM EDT [facility] Base Excess-Line Draw -9.6(L) -2.0 - 3.0 mmol/L 10/06/2024 7:46 AM EDT [facility] %HBO2-Line Draw 69.8 40.0 - 70.0 % 10/06/2024 7:46 AM EDT [facility] Carboxyhgb-Ludivina e Draw 0.7 % 10/06/2024 7:46 AM EDT [facility] Comment: CARBOXYHEMOGLOBIN (CO) REFERENCE RANGES: Non-Smokers: <2 % Smokers: <8 % TOXIC: >20 % Methemoglobin- Line Draw 0.3 0.0 - 1.5 % 10/06/2024 7:46 AM EDT [facility] Reduced Hemoglobin-Ludivina e Draw 29.2(H) 0.0 - 5.0 % 10/06/2024 7:46 AM EDT [facility] Venous, Line Draw 10/06/2024 7:37 AM EDT 10/06/2024 7:43 AM EDT Chari Vanegas MD LAB BLOOD ORDERABLES Final Resul t [facility] [address] [place] [address], [facility] * (ABNORMAL) Venous Blood Gas, Line/Syringe, STAT (10/06/2024 4:03 AM EDT) PH-Line Draw 7.21(L) 7.32 - 7.42 10/06/2024 4:16 AM EDT [facility] PCO2-Line Draw 41 41 - 51 mm Hg 10/06/2024 4:16 AM EDT [facility] PO2-Line Draw 32 25 - 40 mm Hg 10/06/2024 4:16 AM EDT [facility] HCO3-Line Draw 16(L) 24 - 28 mmol/L 10/06/2024 4:16 AM EDT [facility] CO2 Content-Line Draw 18(L) 25 - 29 mmol/L 10/06/2024 4:16 AM EDT [facility] Base Excess-Line Draw -10.8(L) -2.0 - 3.0 mmol/L 10/06/2024 4:16 AM EDT [facility] %HBO2-Line Draw 47.5 40.0 - 70.0 % 10/06/2024 4:16 AM EDT [facility] Carboxyhgb-Ludivina e Draw 2.0 % 10/06/2024 4:16 AM EDT [facility] Comment: CARBOXYHEMOGLOBIN (CO) REFERENCE RANGES: Non-Smokers: <2 % Smokers: <8 % TOXIC: >20 % Methemoglobin- Line Draw 0.7 0.0 - 1.5 % 10/06/2024 4:16 AM EDT [facility] Reduced Hemoglobin-Ludivina e Draw 49.8(H) 0.0 - 5.0 % 10/06/2024 4:16 AM EDT [facility] Venous, Line Draw 10/06/2024 4:03 AM EDT 10/06/2024 4:12 AM EDT Bisi Hernandez DO LAB BLOOD ORDERABLES Final Resul t Performing Organization Address [facility] de Phone Number [facility] [address] [place] [facility]. [address] * (ABNORMAL) Protime-INR (10/06/2024 4:01 AM EDT) Protime 21.3(H) 12.1 - 15.1 seconds 10/06/2024 4:40 AM EDT [facility] INR 1.8(H) 0.9 - 1.1 10/06/2024 4:40 AM EDT [facility] Comment: RECOMMENDED THERAPEUTIC RANGES USING INR : Stable oral anticoagulant therapy: 2.0 - 3.0 Mechanical prosthetic heart valve: 2.5 - 3.5 Recurrent acute myocardial infarction: 2.5 - 3.5 Plasma 10/06/2024 4:01 AM EDT 10/06/2024 4:11 AM EDT [employer] DO LAB BLOOD ORDERABLES Final Resul t Performing Organization Address [facility] de Phone Number [facility] [address] [facility]. [address] * (ABNORMAL) Hepatic Function Panel, AM (10/06/2024 4:01 AM EDT) Total Bilirubin 14.7(H) 0.0 - 1.5 mg/dL 10/06/2024 4:57 AM EDT [facility] Bilirubin, Direct 7.08(H) 0.00 - 0.40 mg/dL 10/06/2024 4:57 AM EDT [facility] AST 60(H) 13 - 39 U/L 10/06/2024 4:57 AM EDT [facility] ALT 31 7 - 52 U/L 10/06/2024 4:57 AM EDT [facility] Alkaline Phosphatase 162(H) 36 - 125 U/L 10/06/2024 4:57 AM EDT [facility] Total Protein 5.3(L) 6.4 - 8.9 g/dL 10/06/2024 4:57 AM EDT [facility] Albumin 3.4(L) 3.5 - 5.7 g/dL 10/06/2024 4:57 AM EDT [facility] Bilirubin, Indirect 7.62(H) 0.00 - 1.10 mg/dL 10/06/2024 4:57 AM EDT [facility] Plasma 10/06/2024 4:01 AM EDT 10/06/2024 4:22 AM EDT [employer] DO LAB BLOOD ORDERABLES Final Resul t Performing Organization Address City/[facility] Co de Phone Number [facility] [address] [facility]. [address] * Magnesium (10/06/2024 4:01 AM EDT) Magnesium 1.8 1.5 - 2.5 mg/dL 10/06/2024 4:57 AM EDT [facility] Plasma 10/06/2024 4:01 AM EDT 10/06/2024 4:22 AM EDT [facility] LAB BLOOD ORDERABLES Final Resul t Performing Organization Address [facility] de Phone Number [facility] [address] * (ABNORMAL) Renal Function Panel w/EGFR (10/06/2024 4:01 AM EDT) Sodium 129(L) 133 - 146 mmol/L 10/06/2024 4:57 AM EDT [facility] Potassium 4.7 3.5 - 5.3 mmol/L 10/06/2024 4:57 AM EDT [facility] Chloride 100 98 - 110 mmol/L 10/06/2024 4:57 AM EDT [facility] CO2 16(L) 21 - 33 mmol/L 10/06/2024 4:57 AM EDT [facility] Anion Gap 13 3 - 16 mmol/L 10/06/2024 4:57 AM EDT [facility] BUN 61(H) 7 - 25 mg/dL 10/06/2024 4:57 AM EDT [facility] Creatinine 3.49(H) 0.60 - 1.30 mg/dL 10/06/2024 4:57 AM EDT [facility] Glucose 104(H) 70 - 100 mg/dL 10/06/2024 4:57 AM EDT [facility] Calcium 9.2 8.6 - 10.3 mg/dL 10/06/2024 4:57 AM EDT [facility] Phosphorus 5.3(H) 2.1 - 4.7 mg/dL 10/06/2024 4:57 AM EDT [facility] Albumin 3.4(L) 3.5 - 5.7 g/dL 10/06/2024 4:57 AM EDT [facility] Osmolality, Calculated 286 278 - 305 mOsm/kg 10/06/2024 4:57 AM EDT [facility] EGFR 22 10/06/2024 4:57 AM EDT [facility] Comment:As of 2021, [...] DO LAB BLOOD ORDERABLES Final Resul t [facility] [address] [facility]. [place] [address], [facility] * (ABNORMAL) CBC (10/06/2024 4:01 AM EDT) WBC 7.6 3.8 - 10.8 10E3/uL 10/06/2024 5:16 AM EDT [facility] RBC 2.77(L) 4.20 - 5.80 10E6/uL 10/06/2024 5:16 AM EDT [facility] Hemoglobin 10.1(L) 13.2 - 17.1 g/dL 10/06/2024 5:16 AM EDT [facility] Hematocrit 28.4(L) 38.5 - 50.0 % 10/06/2024 5:16 AM EDT [facility] MCV 102.4(H) 80.0 - 100.0 fL 10/06/2024 5:16 AM EDT [facility] MCH 36.4(H) 27.0 - 33.0 pg 10/06/2024 5:16 AM EDT [facility] MCHC 35.5 32.0 - 36.0 g/dL 10/06/2024 5:16 AM EDT [facility] RDW 18.0(H) 11.0 - 15.0 % 10/06/2024 5:16 AM EDT [facility] Platelets 53(L) 140 - 400 10E3/uL 10/06/2024 5:16 AM EDT [facility] Comment:Specimen checked for clots. None detected. MPV 8.4 7.5 - 11.5 fL 10/06/2024 5:16 AM EDT [facility] Whole Blood 10/06/2024 4:01 AM EDT 10/06/2024 4:11 AM EDT us Bisi Hernandez DO LAB BLOOD ORDERABLES Final Resul t [facility] [address] [place] [address], [facility] * Hepatitis C Antibody (10/06/2024 4:01 AM EDT) HCV Ab Nonreactive Nonreactive 10/06/2024 5:12 AM EDT [facility] Comment:Health Department no tified in accordance with reportable infectious disease guidelines. Serum 10/06/2024 4:01 AM EDT 10/06/2024 4:11 AM EDT [facility] - 10/06/2024 5:12 AM EDT Antibodies to HCV not detected; does not exclude the possibility of exposure to HCV. [facility] LAB BLOOD ORDERABLES Final Resul t Performing Organization Address City/[facility]/ZIP Co de Phone Number [facility] [address] * (ABNORMAL) Hepatitis B Surface Antibody, Quantitati (10/06/2024 4:01 AM EDT) Hep B S Ab Reactive( A) Nonreactive 10/06/2024 5:16 AM EDT [facility] HBSAB NUMBER 11.50(H) 0.00 - 7.99 mIU/mL 10/06/2024 5:16 AM EDT [facility] Serum 10/06/2024 4:01 AM EDT 10/06/2024 4:11 AM EDT [facility] - 10/06/2024 5:16 AM EDT Individual is considered immune to HBV infection. [facility] LAB BLOOD ORDERABLES Final Resul t Performing Organization Address [facility] Co de Phone Number [facility] [address] [facility]. [address] * Hepatitis B surface antigen (10/06/2024 4:01 AM EDT) Hep B Surface Ag Nonreactive Nonreactive 10/06/2024 5:07 AM EDT [facility] Comment:Health Department no tified in accordance with reportable infectious disease guidelines. Serum 10/06/2024 4:01 AM EDT 10/06/2024 4:11 AM EDT [facility] - 10/06/2024 5:07 AM EDT Specimen is considered negative for HBsAg. [facility] LAB BLOOD ORDERABLES Final Resul t Performing Organization Address City/[facility]/ZIP Co de Phone Number [facility] [address] [facility]. [address] * Hepatitis A Antibody Total (10/06/2024 4:01 AM EDT) Anti-HAV Total (IgG + IgM) Nonreactive 10/06/2024 5:08 AM EDT [facility] Serum 10/06/2024 4:01 AM EDT 10/06/2024 4:11 AM EDT Narrative [facility] - 10/06/2024 5:08 AM EDT HAV antibodies not detected [facility] LAB BLOOD ORDERABLES Final Resul t [facility] [address] [place] [facility]. [address] * Hepatitis A IgM (10/06/2024 4:01 AM EDT) Hep A IgM Nonreactive Nonreactive 10/06/2024 5:02 AM EDT [facility] Serum 10/06/2024 4:01 AM EDT 10/06/2024 4:11 AM EDT Narrative [facility] - 10/06/2024 5:02 AM EDT IgM anti-HAV not detected. Does not exclude the possibility of exposure to or infection with HAV. Levels of IgM anti-HAV may be below the cut-off in early infection. [facility] LAB BLOOD ORDERABLES Final Resul t [facility] [address] [facility]. [address] * (ABNORMAL) Salicylate Level (10/06/2024 4:01 AM EDT) Salicylate Lvl <3(L) 10 - 30 mg/dL 10/06/2024 4:58 AM EDT [facility] Serum 10/06/2024 4:01 AM EDT 10/06/2024 4:22 AM EDT [facility] LAB BLOOD ORDERABLES Final Resul t Performing Organization Address City/[facility] Co de Phone Number [facility] [address] [facility]. [address] * AFP Tumor Marker (10/06/2024 4:01 AM EDT) [facility] AFP-Tumor Marker 2.6 0.0 - 9.0 ng/mL 10/06/2024 4:55 AM EDT [facility] Serum 10/06/2024 4:01 AM EDT 10/06/2024 4:22 AM EDT Narrative [facility] - 10/06/2024 4:55 AM EDT The testing method for AFP is a chemiluminescent immunoassay manufactured by [employer] Concentrations of AFP obtained by different assay methods or kits may vary and cannot be used interchangeably. AFP results cannot be interpreted as absolute evidence of the presence or absence of malignant disease. [facility] LAB BLOOD ORDERABLES Final Resul t Performing Organization Address [facility] Co de Phone Number [facility] [address] [facility]. [address] * Upper Respiratory Viral/Bacterial Panel-CARDROOM SUPERVISOR Only (10/06/2024 3:12 AM EDT) [facility] Adenovirus Not Detected Not Detected 10/06/2024 11:38 PM EDT [facility] Coronavirus (229E,HKU1,NL63,OC 43) Not Detected Not Detected 10/06/2024 11:38 PM EDT [facility] SARS-CoV-2 Not Detected Not Detected 10/06/2024 11:38 PM EDT [facility] Human Metapneumovirus Not Detected Not Detected 10/06/2024 11:38 PM EDT [facility] Human Rhinovirus/Enterov irus Not Detected Not Detected 10/06/2024 11:38 PM EDT [facility] Influenza A Not Detected Not Detected 10/06/2024 11:38 PM EDT [facility] Influenza A H1 Not Detected Not Detected 10/06/2024 11:38 PM EDT [facility] Influenza A/H1-2009 Not Detected Not Detected 10/06/2024 11:38 PM EDT [facility] Influenza A H3 Not Detected Not Detected 10/06/2024 11:38 PM EDT [facility] Influenza B Not Detected Not Detected 10/06/2024 11:38 PM EDT [facility] Parainfluenza 1 Not Detected Not Detected 10/06/2024 11:38 PM EDT [facility] Parainfluenza 2 Not Detected Not Detected 10/06/2024 11:38 PM EDT [facility] Parainfluenza 3 Not Detected Not Detected 10/06/2024 11:38 PM EDT [facility] Parainfluenza 4 Not Detected Not Detected 10/06/2024 11:38 PM EDT [facility] Resp. Syncycial Virus A Not Detected Not Detected 10/06/2024 11:38 PM EDT [facility] Resp. Syncycial Virus B Not Detected Not Detected 10/06/2024 11:38 PM EDT [facility] Chlamydia pneumoniae Not Detected Not Detected 10/06/2024 11:38 PM EDT [facility] Mycoplasma pneumoniae Not Detected Not Detected 10/06/2024 11:38 PM EDT [facility] Comment: The Respiratory Viral-Bacterial Panel [...] Test results have been sent to the [facility] in accordance with state requirements. For a fact sheet for healthcare providers, see https://www.fda.gov/media/289686/download. For a fact sheet for patients, see https://www.fda.gov/media/578900/download. Nasopharyngeal Swab NASOPHARYNGEAL SWAB / Unknown 10/06/2024 3:12 AM EDT 10/06/2024 5:41 PM EDT Comment:CARDROOM SUPERVIS[employer] us Bisi Hernandez DO BODY FLUIDS AND STOOLS ORDERABLE S Final Result [facility] [address] [facility] [place] [address], [facility] * X-ray Portable Chest (10/06/2024 1:16 AM [...] 10/06/2024 2:33 AM EDT Bisi Hernandez DO [facility] ORDERABLE S Final Result * Phosphatidylethanol Confirmation, B (10/06/2024 1:04 AM EDT) PETH 16:0/18.1 (POPETH) <10 Cutoff: 10 ng/mL 10/10/2024 3:11 AM EDT [facility] Comment: Phosphatidylethanol (PEth) homologues result interpretation [...] Cutoff: 10 ng/mL 10/10/2024 3:11 AM EDT [facility] Comment: PEth 16:0/18:2 (PLPEth) Reference ranges are not well established PEth Interpretation Negative. 10/10 3:11 AM EDT [facility] Comment: ADDITIONAL INFORMATION This report is intended for use in clinical monitoring and management of patients. It is not intended for use in employment-related testing. This test was developed and its performance characteristics determined by [facility] in a manner consistent with CLIA requirements. This test has not been cleared or approved by the U.S. Food and Drug Administration. Test Performed by: [address] [address] Rehab Spec: Kathy Ortiz Ph.D.; CLIA# [id number] Whole Blood 10/06/2024 1:04 AM EDT 10/10/2024 3:11 AM EDT [facility] LAB BLOOD ORDERABLES Final Resul t Performing Organization Address City/[facility] Co de Phone Number [facility] [address] * (ABNORMAL) Acetaminophen Level (10/06/2024 1:04 AM EDT) Acetaminophen Level <10(L) 10 - 30 ug/mL 10/06/2024 2:08 AM EDT [facility] Serum 10/06/2024 1:04 AM EDT 10/06/2024 1:30 AM EDT [facility] LAB BLOOD ORDERABLES Final Resul t Performing Organization Address [facility] de Phone Number [facility] [address] [place] [address]. [address] * Ethanol, Serum (10/06/2024 1:04 AM EDT) Ethanol <10 0 - 10 mg/dL 10/06/2024 2:08 AM EDT [facility] Serum 10/06/2024 1:04 AM EDT 10/06/2024 1:30 AM EDT [facility] LAB BLOOD ORDERABLES Final Resul t Performing Organization Address City/[facility] Co de Phone Number [facility] [address] [place] [address]. [address] * #2 Blood culture-Peripheral site 2 (10/06/2024 1:04 AM EDT) Culture Result No Growth After 5 Days [facility] Blood BLOOD SPECIMEN / Unknown 10/06/2024 1:04 AM EDT 10/06/2024 4:57 AM EDT Narrative [facility] - 10/11/2024 5:05 AM EDT Suboptimal volume of blood received. Interpret results with caution. Bisi Hernandez DO MICROBIOLOGY - GENERAL ORDERABLE S Final Result Performing Organization Address City/[facility]/ZIP Co de Phone Number [facility] [address] * #1 Blood culture-Peripheral site 1 (10/06/2024 1:04 AM EDT) Culture Result No Growth After 5 Days [facility] Blood BLOOD SPECIMEN / Unknown 10/06/2024 1:04 AM EDT 10/06/2024 4:57 AM EDT Narrative [facility] - 10/11/2024 5:01 AM EDT Suboptimal volume of blood received. Interpret results with caution. Bisi Hernandez DO MICROBIOLOGY - GENERAL ORDERABLE S Final Result Performing Organization Address [facility] Co de Phone Number [facility] [address] [place] [address]. [address] * Ammonia (10/06/2024 1:04 AM EDT) Ammonia 77 27 - 90 ug/dL 10/06/2024 2:00 AM EDT [facility] Plasma 10/06/2024 1:04 AM EDT 10/06/2024 1:30 AM EDT Bisi Hernandez DO LAB BLOOD ORDERABLES Final Resul t Performing Organization Address City/[facility]/ZIP Co de Phone Number [facility] [address] [facility]. [address] * Thyroid Function Chase (10/06/2024 1:04 AM EDT) TSH 0.84 0.45 - 4.12 uIU/mL 10/06/2024 2:20 AM EDT [facility] Serum 10/06/2024 1:04 AM EDT 10/06/2024 1:39 AM EDT Bisi Akella DO LAB BLOOD ORDERABLES Final Resul t Performing Organization Address City/[facility]/ZIP Co de Phone Number [facility] [address] * (ABNORMAL) Protime-INR (10/06/2024 1:04 AM EDT) Protime 22.8(H) 12.1 - 15.1 seconds 10/06/2024 1:48 AM EDT [facility] INR 1.9(H) 0.9 - 1.1 10/06/2024 1:48 AM EDT [facility] Comment: RECOMMENDED THERAPEUTIC RANGES USING INR : Stable oral anticoagulant therapy: 2.0 - 3.0 Mechanical prosthetic heart valve: 2.5 - 3.5 Recurrent acute myocardial infarction: 2.5 - 3.5 Plasma 10/06/2024 1:04 AM EDT 10/06/2024 1:30 AM EDT us [employer] DO LAB BLOOD ORDERABLES Final Resul t Performing Organization Address [facility]/ZIP Co de Phone Number [facility] [address] [place] [address] * Lactic Acid, STAT (10/06/2024 1:04 AM EDT) Lactate 1.2 0.5 - 2.2 mmol/L 10/06/2024 1:59 AM EDT [facility] Plasma 10/06/2024 1:04 AM EDT 10/06/2024 1:30 AM EDT us [employer] DO LAB BLOOD ORDERABLES Final Resul t Performing Organization Address City/[facility]/ZIP Co de Phone Number [facility] [address] [facility]. [address] * (ABNORMAL) CBC, STAT (10/06/2024 1:04 AM EDT) WBC 7.9 3.8 - 10.8 10E3/uL 10/06/2024 2:36 AM EDT [facility] RBC 2.76(L) 4.20 - 5.80 10E6/uL 10/06/2024 2:36 AM EDT [facility] Hemoglobin 9.9(L) 13.2 - 17.1 g/dL 10/06/2024 2:36 AM EDT [facility] Hematocrit 28.0(L) 38.5 - 50.0 % 10/06/2024 2:36 AM EDT [facility] MCV 101.5(H) 80.0 - 100.0 fL 10/06/2024 2:36 AM EDT [facility] MCH 35.7(H) 27.0 - 33.0 pg 10/06/2024 2:36 AM EDT [facility] MCHC 35.2 32.0 - 36.0 g/dL 10/06/2024 2:36 AM EDT [facility] RDW 17.9(H) 11.0 - 15.0 % 10/06/2024 2:36 AM EDT [facility] Platelets 58(L) 140 - 400 10E3/uL 10/06/2024 2:36 AM EDT [facility] Comment: Specimen checked for clots. None detected. Slide Reviewed for PLT Clumps. None Seen. MPV 8.2 7.5 - 11.5 fL 10/06/2024 2:36 AM EDT [facility] Whole Blood 10/06/2024 1:04 AM EDT 10/06/2024 1:31 AM EDT us Bisi Hernandez DO LAB BLOOD ORDERABLES Final Resul t [facility] [address] [place] [address], [facility] * (ABNORMAL) Comprehensive Metabolic Panel (10/06/2024 1:04 AM EDT) Sodium 127(L) 133 - 146 mmol/L 10/06/2024 2:05 AM EDT [facility] Potassium 4.5 3.5 - 5.3 mmol/L 10/06/2024 2:05 AM EDT [facility] Chloride 99 98 - 110 mmol/L 10/06/2024 2:05 AM EDT [facility] CO2 18(L) 21 - 33 mmol/L 10/06/2024 2:05 AM [facility] Anion Gap 10 3 - 16 mmol/L 10/06/2024 2:05 AM [facility] BUN 59(H) 7 - 25 mg/dL 10/06/2024 2:05 AM [facility] Creatinine 3.54(H) 0.60 - 1.30 mg/dL 10/06/2024 2:05 AM [facility] Glucose 116(H) 70 - 100 mg/dL 10/06/2024 2:05 AM [facility] Calcium 9.0 8.6 - 10.3 mg/dL 10/06/2024 2:05 AM [facility] Total Bilirubin 14.8(H) 0.0 - 1.5 mg/dL 10/06/2024 2:05 AM [facility] AST 61(H) 13 - 39 U/L 10/06/2024 2:05 AM [facility] ALT 33 7 - 52 U/L 10/06/2024 2:05 AM [facility] Alkaline Phosphatase 174(H) 36 - 125 U/L 10/06/2024 2:05 AM [facility] Total Protein 5.2(L) 6.4 - 8.9 g/dL 10/06/2024 2:05 AM [facility] Albumin 3.3(L) 3.5 - 5.7 g/dL 10/06/2024 2:05 AM [facility] Osmolality, Calculated 282 278 - 305 mOsm/kg 10/06/2024 2:05 AM [facility] EGFR 21 10/06/2024 2:05 AM [facility] Comment:As of [...] DO LAB BLOOD ORDERABLES Final Resul t [facility] [address] [place] [address], [facility] documented in this encounter Visit Diagnoses Not [...] 10 mg nitroGLYCERIN in D5W injection - STRIPPER APPRENTICE ONLY Intra-op PRN, Starting on Sun10/14/24 at [...] ЮЛИЯ) 0849 (Given - Provider: Suzette Arciniega, RN) thiamine HCl (VITAMIN B-1) tablet 100 mg 100 mg, Oral, Daily, First dose on Sun10/06/24 at 0900 0819 (Given - Provider: Anu Wolff RN) 0833 (Given - Provider: Anu Wolff RN) 0938 (Given - Provider: Suzette Arciniega, ЮЛИЯ) ursodioL (ACTIGALL) capsule 300 mg 300 mg, Oral, 2 times daily, First dose on Sun10/06/24 at 0200 0820 (Given - Provider: Anu Wolff, RN)2113 (Given - Provider: Chelsy Bush RN) [...] Bush RN)1322 (See Alternative - Provider: Anu Wolff, ЮЛИЯ)2030 (See Alternative - Provider: Soco Milton, ЮЛИЯ) 0245 (See Alternative - Provider: Soco Milton RN)0848 (See Alternative - Provider: Suzette Arciniega, RN) oxyCODONE (ROXICODONE) immediate release tablet 5 mg(Linked Group 1) 5 mg, Oral, Every 6 hours PRN, severe pain (NRS 7-10) or if patient is non-communicative (CPOT 6-8), Starting on Sun10/07/24 at 1205 2108 (Given - Provider: Chelsy Bush RN) 0156 (Given - Provider: Chelsy Bush RN)0635 (Given - Provider: Chelsy Bush RN)1322 (Given - Provider: Anu Wolff, ЮЛИЯ)2030 (Given - Provider: Soco Milton RN) 0245 [...] documented as of this encounter Care Teams Coil Winding Supervisor Relationship Specialty Start Date End Date Enedina Mcguire NP [address] [place] [address] PCP - General Internal Medicine 10/05/24 documented as of this encounter
--- OUTSIDE RECORDS SUMMARY | 2024-10-20 09:10 | XMS_ITS | Encounter Summary ---
Author Organization [facility] Address [facility] [place] [address] Care Team Providers Care Real Estate Associate Name Role Phone Enedina Mcguire NP Primary Care Provider [phone] Source Comments This information has been disclosed [...] release of HIV test results or diagnoses. [id number] Encounter Details Date Type Department Care Team (Latest Contact Info) Description 10/20/2024 9:10 AM EDT - 10/20/2024 11:59 PM EDT Hospital Encounter [facility] Radiology [address] [place] [phone] System, Provider Not In Discharge Disposition: Home [...] Recorded In the past 12 months has [employer], gas, oil, or water [employer] threatened to shut off services in your [...] AM EDT 10/17/2024 naloxone (NARCAN) 4 mg/actuation [place] Apply 1 spray in one nostril if [...] 12/05/2024 8:01 AM EDT Hospital Encounter [facility] ENDOSCOPY [address] [place] [address] Chris Orosco MD [address] [place] [phone] 12/05/2024 8:01 AM EDT - 12/05/2024 8:[address] [facility] ENDOSCOPY [address] [place] [address] Chris Orosco MD [address] [place] [phone] EGD Scheduled Procedures Name Priority Associated Diagnoses [...] documented as of this encounter Care Teams Real Estate Associate Relationship Specialty Start Date End Date Enedina Mcguire NP [address] [place] [address] PCP - General Internal Medicine 10/05/24 documented as of this encounter
--- OUTSIDE RECORDS SUMMARY | 2024-10-20 09:10 | XMS_ITS | Encounter Summary ---
Author Organization [facility] Address [facility] [place] [address] Care Team Providers Care Stem Mounter Name Role Phone Enedina Mcguire NP Primary Care Provider [phone] Source Comments This information has been disclosed [...] release of HIV test results or diagnoses. [id number] Encounter Details Date Type Department Care Team (Latest Contact Info) Description 10/20/2024 9:10 AM EDT - 10/20/2024 11:59 PM EDT Hospital Encounter [facility] Radiology [address] [place] [phone] System, Provider Not In Discharge Disposition: Home [...] Recorded In the past 12 months has [employer], gas, oil, or water [employer] threatened to shut off services in your [...] AM EDT 10/17/2024 naloxone (NARCAN) 4 mg/actuation [place] Apply 1 spray in one nostril [...] Description 12/05/2024 8:01 AM EDT Hospital Encounter [facility] ENDOSCOPY [address] [place] [address] Chris Orosco MD [address] [place] [address] [phone] 12/05/2024 8:01 AM EDT - 12/05/2024 8:31 AM EDT Surgery [facility] ENDOSCOPY [address] [place] [address] Chris Orosco MD [address] [place] [address] [phone] EGD Scheduled Procedures Name Priority Associated Diagnoses [...] documented as of this encounter Care Teams Stem Mounter Relationship Specialty Start Date End Date Enedina Mcguire NP [address] [place] [address] PCP - General Internal Medicine 10/05/24 documented as of this encounter
--- OUTSIDE RECORDS SUMMARY | 2024-10-20 09:10 | XMS_ITS | Encounter Summary ---
Author Organization [facility] Address [facility] [place] [address] Care Team Providers Care Printer Small Print Shop Name Role Phone Enedina Mcguire NP Primary Care Provider [phone] Source Comments This information has been disclosed [...] release of HIV test results or diagnoses. [id number] Encounter Details Date Type Department Care Team (Latest Contact Info) Description 10/20/2024 9:10 AM EDT - 10/20/2024 11:59 PM EDT Hospital Encounter [facility] Radiology [address] [place] [phone] System, Provider Not In Discharge Disposition: Home [...] Recorded In the past 12 months has [employer], gas, oil, or water [employer] threatened to shut off services in your [...] AM EDT 10/17/2024 naloxone (NARCAN) 4 mg/actuation [place] Apply 1 spray in one nostril if [...] 12/05/2024 8:01 AM EDT Hospital Encounter [facility] ENDOSCOPY [address] [place] [address] Chris Orosco MD [address] [place] [phone] 12/05/2024 8:01 AM EDT - 12/05/2024 8:31 AM EDT Surgery [facility] ENDOSCOPY [address] [place] [address] Chris Orosco MD [address] [place] [phone] EGD Scheduled Procedures Name Priority Associated Diagnoses [...] documented as of this encounter Care Teams Printer Small Print Shop Relationship Specialty Start Date End Date Enedina Mcguire NP [address] [place] [address] PCP - General Internal Medicine 10/05/24 documented as of this encounter
--- OUTSIDE RECORDS SUMMARY | 2024-10-20 09:10 | XMS_ITS | Encounter Summary ---
Author Organization [facility] Address [facility] [place] [address] Care Team Providers Care Supervisor Insulation Name Role Phone Enedina Mcguire NP Primary Care Provider [phone] Source Comments This information has been disclosed [...] release of HIV test results or diagnoses. [id number] Encounter Details Date Type Department Care Team (Latest Contact Info) Description 10/20/2024 9:10 AM EDT - 10/20/2024 11:59 PM EDT Hospital Encounter [facility] Radiology [address] [place] [phone] System, Provider Not In Discharge Disposition: Home [...] Recorded In the past 12 months has [employer], gas, oil, or water [employer] threatened to shut off services in your [...] any time in the past 12 m [facility], were you homeless or living [...] AM EDT 10/17/2024 naloxone (NARCAN) 4 mg/actuation [place] Apply 1 spray in one nostril if [...] Encounter [facility] ENDOSCOPY [address] [place] [address] Chris Orosco MD [address] [place] [address] [phone] 12/05/2024 8:01 AM EDT - 12/05/2024 8:31 AM EDT Surgery [facility] ENDOSCOPY [address] [place] [address] Chris Orosco MD [address] [place] [phone] EGD Scheduled Procedures Name Priority Associated Diagnoses [...] as of this encounter Care Teams Supervisor Insulation Relationship Specialty Start Date End Date Enedina Mcguire NP [address] [place] [address] PCP - General Internal Medicine 10/05/24 documented as of this encounter
--- OUTSIDE RECORDS SUMMARY | 2024-10-20 09:10 | XMS_ITS | Encounter Summary ---
Author Organization [facility] Address [facility] [place] [address] Care Team Providers Care Management Development Specialist Name Role Phone Enedina Mcguire NP Primary Care Provider [phone] Source Comments This information has been disclosed [...] release of HIV test results or diagnoses. [id number] Encounter Details Date Type Department Care Team (Latest Contact Info) Description 10/20/2024 9:10 AM EDT - 10/20/2024 11:59 PM EDT Hospital Encounter [facility] Radiology [address] [place] [address] System, Provider Not In Discharge Disposition: Home [...] Recorded In the past 12 months has [employer], gas, oil, or water [employer] threatened to shut off services in your [...] time in the past 12 m [facility], were you homeless or living in a [...] AM EDT 10/17/2024 naloxone (NARCAN) 4 mg/actuation [place] Apply 1 spray in one nostril if [...] Description 12/05/2024 8:01 AM EDT Hospital Encounter [facility] ENDOSCOPY [address] [place] [address] Chris Orosco MD [address] [place] [address] [phone] 12/05/2024 8:01 AM EDT - 12/05/2024 8:31 AM EDT Surgery [facility] ENDOSCOPY [address] [place] [address] Chris Orosco MD [address] [place] [address] [phone] EGD Scheduled Procedures Name Priority Associated Diagnoses [...] documented as of this encounter Care Teams Management Development Specialist Relationship Specialty Start Date End Date Enedina Mcguire NP [address] [place] [address] PCP - General Internal Medicine 10/05/24 documented as of this encounter
--- OUTSIDE RECORDS SUMMARY | 2024-10-20 09:10 | XMS_ITS | Encounter Summary ---
Author Organization [facility] Address [facility] [place] [address] Care Team Providers Care Global Account Executive Name Role Phone Enedina Mcguire NP Primary Care Provider [phone] Source Comments This information has been disclosed [...] release of HIV test results or diagnoses. [id number] Encounter Details Date Type Department Care Team (Latest Contact Info) Description 10/20/2024 9:10 AM EDT - 10/20/2024 11:59 PM EDT Hospital Encounter [facility] Radiology [address] [place] [phone] System, Provider Not In Discharge Disposition: Home [...] Recorded In the past 12 months has [employer], gas, oil, or water [employer] threatened to shut off services in your [...] AM EDT 10/17/2024 naloxone (NARCAN) 4 mg/actuation [place] Apply 1 spray in one nostril if [...] Description 12/05/2024 8:01 AM EDT Hospital Encounter [facility] ENDOSCOPY [address] [place] [address] Chris Orosco MD [address] [place] [phone] 12/05/2024 8:01 AM EDT - 12/05/2024 8:31 AM EDT Surgery [facility] ENDOSCOPY [address] [place] [address] Chris Orosco MD [address] [place] [phone] EGD Scheduled Procedures Name Priority Associated Diagnoses [...] documented as of this encounter Care Teams Global Account Executive Relationship Specialty Start Date End Date Enedina Mcguire NP [address] [place] [address] PCP - General Internal Medicine 10/05/24 documented as of this encounter
--- OUTSIDE RECORDS SUMMARY | 2024-10-20 09:10 | XMS_ITS | Encounter Summary ---
Author Organization [facility] Address [facility] [place] [address] Care Team Providers Care Toddler Caregiver Name Role Phone Enedina Mcguire NP Primary Care Provider [phone] Source Comments This information has been disclosed [...] release of HIV test results or diagnoses. [id number] Encounter Details Date Type Department Care Team (Latest Contact Info) Description 10/20/2024 9:10 AM EDT - 10/20/2024 11:59 PM EDT Hospital Encounter [facility] Radiology [address] [place] [phone] System, Provider Not In Discharge Disposition: Home [...] Recorded In the past 12 months has [employer], gas, oil, or water [employer] threatened to shut off services in [...] in the past [address] [facility], were you homeless or [...] AM EDT 10/17/2024 naloxone (NARCAN) 4 mg/actuation [place] Apply 1 spray in one nostril if [...] [facility] ENDOSCOPY [address] [place] [address] Chris Orosco MD [address] [place] [address] [phone] 12/05/2024 8:01 AM EDT - 12/05/2024 8:31 AM EDT Surgery [facility] ENDOSCOPY [address] [place] [address] Chris Orosco MD [address] [place] [address] [phone] EGD Scheduled Procedures Name Priority Associated Diagnoses [...] documented as of this encounter Care Teams Toddler Caregiver Relationship Specialty Start Date End Date Enedina Mcguire NP [address] [place] [address] PCP - General Internal Medicine 10/05/24 documented as of this encounter
--- OUTSIDE RECORDS SUMMARY | 2024-10-25 20:46 | XMS_ITS | Encounter Summary ---
Author Organization [facility] Address [address] [place] [address] Care Team Providers Care Technical Services Analyst Name Role Phone Enedina Mcguire NP Primary Care Provider + [phone] Alicia Pantoja RN Unavailable Unavail able Source [...] release of HIV test results or diagnoses. [id number] Reason for Referral * Surgical (Routine) - Authorized Specialty Diagnoses / Procedures Referred By Shane hernadez Referred To Contact Surgery Diagnoses Acute kidney injury superimposed on CKD (CMS-HCC) Procedures Case request operating room: TRANSPLANT KIDNEY with bile duct reconstruction Sveta Judge MD [address] [facility] [address] [place] [address] Phone: tel: fax: Referral ID Status Reason Start Date Expiration Date V isits Requested Visits Authorized [id number] Authorized 10/26/2024 04/24/2025 1 1 Reason for Visit * Auth/Cert (Routine) Specialty Diagnoses / Procedures Referred By Shane hernadez Referred To Contact Surgical Intensive Care Diagnoses Liver transplant recipient (CMS-HCC) cirrhosis and CKD Procedures LIVER-KIDNEY TRANSPLANT [facility] [address] [place] [address] Phone: tel: Referral ID Status Reason Start Date Expiration Date Visits Re quested Visits Authorized [id number] 1 1 Encounter Details Date Type Department Care Team (Latest Contact Info) Description 10/25/2024 8:46 PM EDT - 11/02/2024 6:23 PM EDT Hospital Encounter [address] [place] [address] Semaj Mcnair III, MD [address] [facility] [address] [place] [address] Lydia Sanchez MD [address] [facility] Liver/[place] [address] Acute kidney injury superimposed on CKD ([facility]) (Primary Dx); Prophylactic antibiotic; Prolonged QT interval; Immunosuppression ([facility]); Abdominal pain, unspecified abdominal location Discharge Disposition: [...] Recorded In the past 12 months has [employer], [employer], or water [employer] threatened to shut off services in your [...] in the past 12 [facility], were you homeless or living in a mcfp (including now)? No 10/29/2024 Yearly Questionnaire Answer [...] Summary Patient: Blair Gilbert : 1985 CSN: [id number] Date of Admission: 10/25/2024 Date of Discharge: [...] Case IDs Date Procedure Surgeon Location Status [id number] 10/25/24 LIVER TRANSPLANT Semaj Mcnair III, MD OR Comp [id number] 10/27/24 Donor Kidney Transplant , Back Bench [...] EXAM: US ABDOMEN LIMITED EXAM: US DUPLEX [id number] COMPLETE INDICATION: Post-op liver transplant COMPARISON: None [...] visualized secondary to poor acoustic windows. The elem right kidney measures 11.6 cm in length. [...] 30 tablet Refills: 0 naloxone 4 mg/actuation [place] Commonly known as: NARCAN Apply 1 spray [...] Your Medications These medications were sent to [facility] [address] [address] mycophenolate 250 mg capsule tacrolimus 1 MG capsule These medications were sent to [facility] [address] [facility] [address] Hours: Sunday - Sunday: 8:00AM - 6:00PM [...] Case IDs Date Procedure Surgeon Location Status [id number] 10/25/24 LIVER TRANSPLANT Semaj Mcnair III, MD OR Comp [id number] 10/27/24 Donor Kidney Transplant , Back Bench [...] discharge. NEURO/PAIN - Patient placed on Dilaudid GOLF CLUB REPAIRER once extubated, then transitioned to multi-modal pain [...] Ureteral stentis scheduled for removal on 11/25 [facility] - PT/OT evaluated patient and recommended Home PT/OT, outpatient PT/OT only available. ENDO - A1C is 5.0. Pt was not on diabetic regimen prior to arrival. Patient developed steroid-induced hyperglycemia 2/2 steroid regimen. Discharged home on the following regimen: HDSSI. Patient met w/ import/export specialist prior to discharge. HEME - Post-operatively, monitored [...] Patient and family received post-transplant education from apartment coordinator as well as medication teaching from [...] LTRA SURGERY, [facility] 11/04/2024 10:10 AM LTRA [facility]ORENAL [facility] LTRA [facility] 11/25/2024 9:00 AM NAA Merida [facility] 12/02/2024 2:00 PM Bossman Huffman MD [facility] 02/25/2025 10:50 AM Bruno Gonzalez MD [facility] HOX HOX Kenyettafahad Hartman, MS-4 [facility] SHAY PLATA MD 11/02/2024 12:50 PM [...] kept under 2 gm/day. Please discuss withyour web content coordinator if you have any question about appropriate dose to take. Other Instructions: Call post-liver transplant clinic with questions [phone] or call [facility] at [phone] and ask for the liver apartment coordinator controlled area checker if you experience any of the following: [...] AM LTRA SURGERY, [facility] 11/04/2024 10:10 AM LTRA [facility]PATORENAL [facility] 11/25/2024 9:00 AM NAA Merida [facility] 12/02/2024 2:00 PM Bossman Huffman MD [facility] 02/25/2025 10:50 AM Bruno Gonzalez MD [facility] documented in this encounter Medications [...] EDT 11/02/2024 blood sugar diagnostic (GLUCOSE BLOOD) [facility] Use to test blood sugar up to 4 times a day. 100 strip 11 11/02/2024 10:20 AM EDT 10/27/2024 blood-glucose meter (TRUE METRIX GLUCOSE METER) [facility] Use to test blood [...] AM EDT 10/27/2024 lancets (ACCU-CHEK SOFTCLIX LANCETS) [facility] Use to test blood [...] capsule 5 10/27/2024 naloxone (NARCAN) 4 mg/actuation [place] Apply 1 spray in one nostril if [...] tacrolimus and mycophenolate which were dispensed through [facility] per insurance requirements. Patient's confirms those [...] fair Expected caregiver involvement?: is primary med craps manager Need for additional education in clinic?: routine reinforcement only Future medications to be obtained from, if known (select one): Tac/MMF to be filled from [facility] Financial concerns (if any): no [...] Disp-15 mL, R-2 lancets (ACCU-CHEK SOFTCLIX LANCETS) [facility] Use to test blood [...] Disp-30 tablet, R-0 naloxone (NARCAN) 4 mg/actuation [place] Apply 1 spray in one nostril if [...] mg) capsule Comments: Reason for Stopping: Eduardo Gamnio, Pharm.D., TXP Solid Organ Transplant Clinical Specialist Contact via RealDirect Secure Chat * Froylan Hendrickson MD - 11/01/2024 8:04 AM EDT Liver Transplant Surgery Progress Note Name: Blair Gilbert CSN: [id number] Date: 11/01/2024 8:06 AM OR Date: 10/25/2024 [...] at 10/31/2024 4:38 PM EDT US Duplex Izr-Klv-Zbxgysb Comp Result Date: 10/31/2024 IMPRESSION: RIGHT UPPER [...] 10/25/2024 - 10/27/2024. Plan: Liver transplant recipient ([facility]) [Z94.4] Neuro: - Multimodal pain control: tylenol, [...] Boost VHC- very high calorie protein supplement ([facility] only) Pertinent Information: Pt seen for [...] Based on DBW of 93.1 kg Kcals/day: 8221-8729 (25-30 kcals/kg) Protein g/day: 140-190 (1.5-2.0 g/kg) [...] Care Volunteer Visit PATIENT NAME: Blair Gilbert [facility] Affiliation:Voodoo Blair Gilbert was visited by a volunteer today. No needs requiring a visit from a staff personnel analyst were expressed at that time. Care Provided: Communion, Prayer/ blessing Please page our service at [phone] as needs arise for patient and/or family. Fr Dean Dobson Voodoo personnel analyst Spiritual Care Dept * Brittany Horne PT - 10/31/2024 1:42 PM EDT Physical Therapy Reason Patient Not Seen Name: Blair Gilbert : 1985 Attending Physician: Lydia Sanchez MD Admission Diagnosis: Liver transplant recipient ([facility]) [Z94.4] Date: 10/31/2024 Precautions: Precautions: none Reviewed [...] Activity Level: Activity as tolerated Assist: OT VIVAINE Ratliff Recommendation Recommendation: Home OT Equipment Recommendations: Patient already has needed DME Patient already has needed DME: shower chair Equipment issued by OT: Long-handled sponge, Sock aid, Tub Wash Operator, Other (comment) Equipment issued by OT comment: leg temperature logging operator Assessment Assessment: Decreased ADL status, Decreased [...] IADL task (Goal met and continued 10/31) Longterm Goal : Pt will complete bathing assessment and transfer termite exterminator helper goal to be met in: 2 weeks [...] packing; Surgeon: Semaj Mcnair III, MD; Location: [facility]; Service: Transplant; Laterality: N/A; [1] Patient Active Problem List Diagnosis Decompensated cirrhosis ([facility]) Acute kidney injury superimposed on CKD ([facility]) Alcohol use disorder Metabolic encephalopathy Hypertension Other hyperlipidemia Thrombocytopenia ([facility]) Renal mass, left [...] 0659 10/31/24 07 - 11/01/24 0659 Shift 7301-8266 3031-1751 3195-6381 24 Hour Total 8439-5863 9047-7242 3553-9570 24 Hour Total INTAKE P.O. 240 240 P.O. 240 240 Shift Total(mL/kg) 240(1.9) 240(1.9) OUTPUT Urine(mL/kg/hr) 1850(1.8) 600(0.6) 600(0.6) 3050(1) 350 350 Urine 800 178 216 7518 350 350 Urine Occurrence 2 x 2 [...] with further concerns Lavell Kramer MD 10/31/[phone] * Priti Geiger CNP - 10/31/2024 10:06 AM EDT Liver Transplant Surgery Progress Note Name: Blair Gilbert CSN: [id number] Date: 10/31/2024 10:06 AM OR Date: 10/25/2024 [...] 10/28/24 1109 LACTATE 0.3* Imaging US Duplex Ini-Emw-Iposrhg Comp Result Date: 10/28/2024 IMPRESSION: ABDOMINAL ULTRASOUND [...] 10/25/2024 - 10/27/2024. Plan: Liver transplant recipient ([facility]) [Z94.4] Neuro: - Multimodal pain control: tylenol, [...] Transplant Nephrology Progress Note Patient: Blair Gilbert [id number] Date of Admit: 10/25/2024. 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 Lauren Santos, SAMSON, WRITER EDITOR, FIRE EXTINGUISHER MECHANIC- Transplant Nephrology [phone] Preferred contact: secure chat The HPI, ROS, [...] 0659 10/30/24 07 - 10/31/24 0659 Shift 0247-5904 6212-3527 9820-6384 24 Hour Total 4678-3129 9993-0604 0480-3889 24 Hour Total INTAKE P.O. 240 240 480 P.O. 240 240 480 IV Piggyback 87.2 87.2 Volume (mL) (micafungin (MYCAMINE) 50 mg in sodium chloride 0.9 % 100 mL Apyp3Tfo IVPB) 87.2 87.2 Shift Total(mL/kg) 240(2) 327.2(2.7) 567.2(4.4) OUTPUT Urine(mL/kg/hr) 600(0.6) 1175(1.2) 450(0.4) 2225(0.7) 550 550 Output (mL) (IUC (Berkowitz) Triple-lumen (3-Way) 18 Fr.) 600 3866 739 6185 550 550 Drains 175 245 100 520 [...] month of prophylaxis Lavell Kramer MD 10/30/[phone] * Priti Geiger CNP - 10/30/2024 10:36 AM EDT Liver Transplant Surgery Progress Note Name: Blair Gilbert CSN: [id number] Date: 10/30/2024 10:37 AM OR Date: 10/25/2024 [...] 1109 LACTATE 0.5 0.3* Imaging US Duplex Fxm-Eks-Flegqkf Comp Result Date: 10/28/2024 IMPRESSION: ABDOMINAL ULTRASOUND [...] 10/25/2024 - 10/27/2024. Plan: Liver transplant recipient ([facility]) [Z94.4] Neuro: - Multimodal pain control: tylenol, [...] Transplant Nephrology Progress Note Patient: Blair Gilbert [id number] Date of Admit: 10/25/2024. 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 Lauren Santos, SAMSON, WRITER EDITOR, FIRE EXTINGUISHER MECHANIC- Transplant Nephrology [phone] Preferred contact: secure chat The HPI, ROS, [...] EDT Pt seen, examined, and discussed with PUBLIC RELATIONS PLAYER on 10/30/2024. reviewed the chart including the [...] I/O: +23.3L net volume. 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 Admit Weight: 270 lb (122.5 [...] Based on DBW of 93.1 kg Kcals/day: 9081-7225 (25-30 kcals/kg) Protein g/day: 140-190 (1.5-2.0 g/kg) [...] Dietitian - Solid Organ Transplant Contact via RealDirect Chat * Anita Crystal, PT - 10/29/2024 2:04 PM EDT Physical Therapy Initial Assessment Name: Blair Gilbert : 1985 Attending Physician: Semaj Mcnair III, MD Admission Diagnosis: Liver transplant recipient ([facility]) [Z94.4] Date: 10/29/2024 Room: [place] [address] [address] Reviewed Pertinent hospital course: Yes Hospital Course [...] with functional mobility at: 4/10 or less Meat Soaker Goal : Pt will ambulate 250' mod [...] Diagnosis Decompensated cirrhosis ([facility]) Acute kidney injury superimposed on CKD ([facility]) Alcohol use disorder Metabolic encephalopathy Hypertension Other hyperlipidemia Thrombocytopenia (CMS-HCC) Renal mass, left Abdominal pain Hypokalemia CKD (chronic kidney disease) stage 4, GFR 15-29 ml/min (CMS-HCC) Metabolic acidosis with normal anion gap and bicarbonate losses GERD (gastroesophageal reflux disease) Hypothyroidism Itching Anemia BRBPR (bright red blood per rectum) SBP (spontaneous bacterial peritonitis) ([facility]) C Diff Diarrhea C. difficile diarrhea Neck pain with history of cervical spinal surgery * Shanel Pabon, OT - 10/29/2024 1:23 PM EDT Occupational Therapy Initial Assessment Name: Blair Gilbert : 1985 Attending Physician: Semaj Mcnair III, MD Admission Diagnosis: Liver transplant recipient ([facility]) [Z94.4] Date: 10/29/2024 Room: [place] [address] [address] Reviewed Pertinent hospital course: Yes Hospital Course [...] Intervention(s): Ambulation/increased activity;Repositioned Therapist reported pain to: field pipelines supervisor Oxygen Supplemental Oxygen Supplemental Oxygen: None [...] distance ambulation in prep for IADL task Longterm Goal : Pt will complete bathing assessment and transfer termite exterminator helper goal to be met in: 2 weeks [...] (spontaneous bacterial peritonitis) ([facility]) C Diff Diarrhea C. difficile diarrhea Neck pain with history of cervical spinal surgery * Caron Santos CNP - 10/29/2024 10:30 AM EDT Images from the original note were not included. Transplant Nephrology Progress Note Patient: Blair Gilbert [id number] SICU-28/IC-28 Date of Admit: 10/25/2024. 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 Lauren Santos, DNP, WRITER EDITOR, FIRE EXTINGUISHER MECHANIC- Transplant Nephrology [phone] Preferred contact: secure chat The HPI, ROS, [...] EDT Pt seen, examined, and discussed with PUBLIC RELATIONS PLAYER on 10/29/2024. reviewed the chart including the labs and imaging studies. My additional comments below. 39 y.o. 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 S/p SLK 10/25-10/26 Has great UOP 4.2L; 720 drain output Aaron Gonzalez MD, MEd, FASN * Kenyetta Hartman - 10/29/2024 10:07 AM EDT Liver Transplant Surgery Progress Note Name: Blair Gilbert CSN: [id number] Date: 10/29/2024 10:08 AM OR Date: 10/25/2024 [...] LACTATE 0.4* 0.5 0.3* Imaging US Duplex Ijy-Qpd-Hkpekwq Comp Result Date: 10/28/2024 IMPRESSION: ABDOMINAL ULTRASOUND [...] at 10/27/2024 10:38 AM EDT US Duplex Yns-Qds-Dzkkbiq Comp Result Date: 10/27/2024 IMPRESSION: RIGHT UPPER [...] 10/25/2024 - 10/27/2024. Plan: Liver transplant recipient ([facility]) [Z94.4] Neuro: - Multimodal pain control: tylenol, [...] SQH, SCDs DISPO: floor KENYETTA HARTMAN, MS4 [facility] General Surgery 10:08 AM 10/29/2024 Cosigned [...] 10/29/2459 10/29/24 07 - 10/30/24 0659 Shift 5165-8234 9535-3779 9915-7131 24 Hour Total 1332-7523 8335-6639 0812-9896 24 Hour Total INTAKE P.O. 240 0 [...] IV infusion) 253.9 374.7 775.6 1404.2 Blood 5024 773 8154 Albumin 750 750 Volume (Transfuse RBC Transfusion Rate: Per dept routine) 310 310 Volume (Transfuse RBC Transfusion Rate: Per dept routine) 271 271 IV Piggyback 918.4 076 06 3992.4 Volume (mL) (micafungin (MYCAMINE) 50 mg in sodium chloride 0.9 % 100 mL Galr0Tdd IVPB) 99.9 99.9 Volume (mL) (albumin human [...] month of prophylaxis Lavell Kramer MD 10/29/[phone] * John Moreno MD - 10/29/2024 6:47 AM EDT SURGICAL ICU PROGRESS NOTE 10/29/2024 6:47 AM Name: Blair Gilbert CSN: [id number] HPI: Blair Gilbert is a 39 y.o. [...] to 4 times a day. DEXCOM G7 LAND LEASES AND RENTALS MANAGER Misc Use reader as directed. DEXCOM G7 [...] times a day. naloxone (NARCAN) 4 mg/actuation [place] Apply 1 spray in one nostril if [...] 37 37 35 PO2ART 245* 182* 92 USG3QCE 22 21* 21* BEART -4.2* -4.8* -4.6* [...] at baseline or with provocation, shows no ywexy-gi-obyb atrial level shunt. - Pulmonary arteries: Systolic [...] Home pantoprazole 40mg daily, continue Last BM: PRODUCT STRATEGY DIRECTOR - suppository today Bowel regimen: Miralax today, [...] results for input(s): TEGANGLE , TEGKTIME , UIJFYQHJ12 , TEGMAXAMPL , TEGRTIME , CBMZ in [...] in sodium chloride 0.9 % 100 mL Tqek3Gan IVPB 50 mg Every 24 hours 10/27/2024 -- Admin Instructions: PROTECT FROM LIGHT FLUSH LINE w/NSS PRIOR TO ADMINISTRATION Use Yhgo4Bre Adapter - Mix Thoroughly Before Administration Route: [...] instability DC today Arterial Line? R radial [place]- DC today Urinary Catheter? Berkowitz - Reason: [...] BID Continuous Infusions: HYDROmorphone 6 mg/30 mL GOLF CLUB REPAIRER norepinephrine 4 mcg/min (10/27/24 2318) sodium chloride [...] Date 10/27/24699 - 10/28/2465810/28/24699 - 10/29/24658 Shift 6271-0758 9654-3191 5682-9534 24 Hour Total 2322-4424 3901-4007 8129-0302 24 Hour Total INTAKE P.O. 0 120 [...] in sodium chloride 0.9 % 100 mL Ropx4Zip IVPB) 100 100 Volume (mL) (albumin human 5%) 126 126 Volume (mL) (potassium chloride (KCl)/Sterile water 50 mL 20 mEq/50 mL IVPB 20 mEq) 100 100 Volume (mL) (AMPicillin 1 g in sodium chloride 0.9% 100 mL IVPB (Xpeu0Lzo)) 100.1 57 42.9 200 Volume (mL) (mycophenolate (CELLCEPT) 500 mg in dextrose 5% in water (D5W) 50 mL IVPB) 50 5.3 55.3 Shift Total(mL/kg) 2079.3(17) 1161(9.5) 787.3(6.4) 4027.6(32.9) OUTPUT Urine(mL/kg/hr) 2195(2.2) 1000(1) 900(0.9) 4095(1.4) 490 490 Urine 360 360 Output (mL) (IUC (Berkowitz) Triple-lumen (3-Way) 18 Fr.) 1835 5834 487 9371 490 490 Emesis/NG output 50 50 Drainage [...] 1.67* Lab 10/28/24 0413 10/25/24 2343 10/25/24 8527 PROTHROMBIN TIME 14.6 < > 21.7* INR [...] month of prophylaxis Lavell Kramer MD 10/28/[phone] * Caron Santos CNP - 10/28/2024 9:00 AM EDT Images from the original note were not included. Transplant Nephrology Progress Note Patient: Blair Gilebrt [id number] SICU-28/IC-28 Date of Admit: 10/25/2024. 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 Lauren Santos, SAMSON, WRITER EDITOR, FIRE EXTINGUISHER MECHANIC- Transplant Nephrology [phone] Preferred contact: secure chat The HPI, ROS, [...] EDT Pt seen, examined, and discussed with PUBLIC RELATIONS PLAYER on 10/28/2024. reviewed the chart including the labs and imaging studies. My additional comments below. 39 y.o. 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 S/p SLK 10/25-10/26 Has great UOP 4.2L Aaron Gonzalez MD, MEd, FASN * Shay Plata MD - 10/28/2024 7:41 AM EDT Liver Transplant Surgery Progress Note Name: Blair Gilbert CSN: [id number] Date: 10/28/2024 11:05 AM OR Date: 10/25/2024 - 10/27/2024 Subjective: 1 Day Post-Op Received one unit pRBCs overnight On low dose levo this morning Increasing tachycardia Reports worsening pain, on GOLF CLUB REPAIRER Tolerated sips of clears No nausea/vomiting, no [...] Oral BID Continuous: HYDROmorphone 6 mg/30 mL GOLF CLUB REPAIRER norepinephrine Stopped (10/28/24 0637) sodium chloride 0.9 [...] at 10/27/2024 10:38 AM EDT US Duplex Soi-Pfy-Nigqkwu Comp Result Date: 10/27/2024 IMPRESSION: RIGHT UPPER [...] 10/25/2024 - 10/27/2024. Plan: Liver transplant recipient ([facility]) [Z94.4] Neuro: - Multimodal pain control: dilaudid GOLF CLUB REPAIRER, tylenol, robaxin. PRN dilaudid for breakthrough CV: [...] SCDs DISPO: SICU SHAY PLATA MD, MS4 Critical [facility] hospital Surgery 11:05 AM 10/28/2024 Cosigned by Lydia [...] 10/28/2024 6:17 AM Name: Blair Gilbert CSN: [id number] HPI: Blair Gilbert is a 39 y.o. [...] to 4 times a day. DEXCOM G7 LAND LEASES AND RENTALS MANAGER Misc Use reader as directed. DEXCOM G7 [...] times a day. naloxone (NARCAN) 4 mg/actuation [place] Apply 1 spray in one nostril if [...] Oral BID Continuous: HYDROmorphone 6 mg/30 mL GOLF CLUB REPAIRER insulin regular in 0.9 % sodium chloride [...] 37 37 35 PO2ART 245* 182* 92 WAR2WGZ 22 21* 21* BEART -4.2* -4.8* -4.6* [...] at baseline or with provocation, shows no bqlnw-oe-sgqf atrial level shunt. - Pulmonary arteries: Systolic [...] while intubated,convert to PO today Last BM: PRODUCT STRATEGY DIRECTOR Bowel regimen: Miralax today, hold senna til [...] ml IV Fluids: HYDROmorphone 6 mg/30 mL GOLF CLUB REPAIRER insulin regular in 0.9 % sodium chloride, [...] results for input(s): TEGANGLE , TEGKTIME , UUZJBVPZ67 , TEGMAXAMPL , TEGRTIME , CBMZ in [...] in sodium chloride 0.9% 100 mL IVPB (Gvxd4Hfx) (Completed) 1 g Every 6 hours scheduled 10/26/2024 10/28/2024 Admin Instructions: Dosage may need to be adjusted for renal dysfunction. Full dose is 1g IV q6h Use Ahju8Hrq Adapter - Mix Thoroughly Before Administration Notes to Pharmacy: On sales order clerk estimated creatinine clearance is 35.9 [...] in sodium chloride 0.9 % 100 mL Dvhb8Yks IVPB 50 mg Every 24 hours 10/27/2024 -- Admin Instructions: PROTECT FROM LIGHT FLUSH LINE w/NSS PRIOR TO ADMINISTRATION Use Qdwj4Vnv Adapter - Mix Thoroughly Before Administration Route: [...] the Caprini Risk Score of 10 and [facility] transplant protocol, I recommend discharging on [...] Solid Organ Transplant Clinical Specialist Contact via Episencial Chat Preferred O. [phone] * Chinedu Almeida RRT - 10/27/2024 1:10 [...] Yes MD Order No SBT No Yes [place] Coma Scale > 8 Yes Lab Results Component Value Date PHART 7.36 10/27/2024 PCO2 37 10/27/2024 PO2ART 245 (H) 10/27/2024 DHC1JHD 22 10/27/2024 BEART -4.2 (L) 10/27/2024 VVG0HWG 96.5 10/27/2024 A9UGQPZH 100 10/27/2024 Based on this SBT assessment [...] Surgery Progress Note Name: Blair Gilbert CSN: [id number] Date: 10/27/2024 11:40 AM OR Date: 10/25/2024 - 10/27/2024 Subjective: * Day of Surgery * Remains intubated in SICU Sedated but appropriately nods to questions No acute distress Objective: BP 100/48 Pulse 89 Temp 99 ??F (37.2 ??C) ([place]) Resp 9 Ht 6' 4 (1.93 m) [...] at 10/27/2024 10:38 AM EDT US Duplex Auo-Csf-Wxokvyu Comp Result Date: 10/27/2024 IMPRESSION: RIGHT UPPER [...] 10/27/2024. Problem List[1] Plan: Liver transplant recipient ([facility]) [Z94.4] Neuro: - Propofol/fentanyl CV: - Wean [...] SQH, SCDs DISPO: SICU KENYETTA HARTMAN, MS4 Critical access hospital Surgery 11:40 AM 10/27/2024 [1] Patient Active Problem List Diagnosis Decompensated cirrhosis ([facility]) Acute kidney injury superimposed on CKD ([facility]) Alcohol use disorder Metabolic encephalopathy Hypertension Other hyperlipidemia Thrombocytopenia ([facility]) Renal mass, left Abdominal pain Hypokalemia CKD (chronic kidney disease) stage 4, GFR 15-29 ml/min ([facility]) Metabolic acidosis with [...] 10:31 AM EDT ECG performed on patient Bliar Gilbert in SICU-28/USIC-28. Test transmitted and paper [...] 10/27/2024 7:16 AM Name: Blair Gilbert CSN: [id number] HPI: Blair Gilbert is a 39 y.o. [...] for 30 days. FREESTYLE NIDA 3 READER [facility] Use 1 each as directed Use as [...] times a day. naloxone (NARCAN) 4 mg/actuation [place] Apply 1 spray in one nostril if [...] 47* 36 37 PO2ART 127* 91 137* MTV8JWS 21* 22 20* BEART -5.4* -3.9* -6.4* [...] at baseline or with provocation, shows no mqnru-uh-yllj atrial level shunt. - Pulmonary arteries: Systolic [...] IV pantoprazole while intubated, NPO Last BM: PRODUCT STRATEGY DIRECTOR Bowel regimen: Senna/Miralax when able Nausea: Zofran [...] 10/27/2024 0715 Gross per 24 hour Intake 24645.82 ml Output 7060 ml Net 6224.82 ml [...] results for input(s): TEGANGLE , TEGKTIME , GZWHJIKS72 , TEGMAXAMPL , TEGRTIME , CBMZ in [...] in sodium chloride 0.9% 100 mL IVPB (Xiwq7Geu) 1 g Every 6 hours scheduled Admin Instructions: Dosage may need to be adjusted for renal dysfunction. Full dose is 1g IV q6h Use Dvqa1Fvc Adapter - Mix Thoroughly Before Administration Notes to Pharmacy: On sales order clerk estimated creatinine clearance is 35.9 mL/min (A) (based on SCr of 3.87 mg/dL (H)). Route: Intravenous Linked Group 1: Placed in And Linked Group cefTRIAXone (ROCEPHIN) 2 g in sodium chloride 0.9 % 100 mL Cvhb1Tgg Continuous - One Step Medications Only 10/27/2024 [...] Agitation Sedation Scale: -2 Overall CAM-ICU : ([facility]) A/P: - ADDY # Mood Disorder [...] R IJ Mac Arterial Line? R radial [place] Urinary Catheter? Berkowitz - Reason: Adequate I/O [...] Contact via Epic Secure Chat Preferred * Simeon Guzman RN - 10/27/2024 2:40 AM EDT Pt was taken to the OR by OR staff. Pt left in B upper extremity limb restraints in place. Care transferred to OR staff at this time. Simeon RN * Jannet Ramires - 10/26/2024 2:30 PM EDT ECG performed on patient Blair iGlbert in SICU-28/USIC-28. 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 naloxone (NARCAN) 4 mg/actuation [place] Apply 1 spray in one nostril if [...] Resource Strain: Low Risk (07/09/2024) Received from [facility] Overall Financial Resource Strain (CARDIA) Difficulty [...] No Physical Activity: Unknown (07/14/2024) Received from [facility] Exercise Vital Sign Days of Exercise per Week: Patient unable to answer Minutes of Exercise per Session: Not on file Stress: Patient Unable To Answer (07/14/2024) Received from [facility] [place] of Occupational Health - Occupational Stress Questionnaire Feeling of Stress : Patient unable to answer Social Connections: Patient Unable To Answer (07/14/2024) Received from [facility] Social Connection and Isolation Panel [NHANES] Frequency of Communication with Friends and Family: Patient unable to answer Frequency of Social Gatherings with Friends and Family: Patient unable to answer Attends Jew Services: Patient unable to answer Active Member [...] admitted to SICU post-op. LEANDRA OG MD Critical access hospital Surgery Liver Transplant Pager: [phone] 8:24 PM 10/25/2024 Cosigned by Semaj [...] Name: Blair Gilbert Date: 1985 Billing #: [id number] Date of Procedure: 10/25/2024 Diagnosis: End Stage Renal Disease Procedure: 1. Donor Kidney Transplant 2. Back Bench Preparation Donor Kidney 3. Baseline Kidney transplant biopsy 4. Insertion of Indwelling Stent 5. Removal of Perihepatic packing Surgeons * Flaquito Ba MD It Trainee MD Shayan Findings: Low Hockey stick incision [...] donor was ABO O and UNOS ID [id number], Match Run [id number] (K). This donor was a Donor after [...] was then wanded with the lap detection seismic survey assistant. The incision was ex tented 2 [...] and closure. Flaquito Ba MD Transplant Surgeon perinatal instructor * Flaquito Ba MD - 10/27/2024 6:15 AM EDT TRANSPLANT KIDNEY with bile duct reconstruction Brief Op Note Blair Gilbert 10/27/2024 Pre-op Diagnosis: Acute kidney injury superimposed on CKD (CMS-HCC) [N17.9, N18.9] Post-op Diagnosis: same Procedure(s): TRANSPLANT KIDNEY Surgeon(s): MD Semaj Washington III, MD Anesthesia: General Endotracheal Staff: Respiratory Tech: Chinedu Quinn RN Scrub Person: ST Angela Fellow: Kemar Sahni MD 2nd Respiratory Tech: Marty Clark RN 3rd Respiratory Tech: Candis Mcdaniel RN FINDINGS Berkowitz 3 day Drains: Intraabdominal (perihepatic) UNOS ID [id number], Match Run [id number] Kid WIT 27 min Kid CIT 33 [...] (Berkowitz) Triple-lumen (3-Way) 18 Fr. (Active) Status Crescent Drainage 10/26/241999 Collection Container Standard drainage bag [...] Washington III, MD Anesthesia: General Endotracheal Staff: Respiratory Tech: Chinedu Quinn RN Relief Respiratory Tech: Michela Amos RN Relief Scrub: Stephani Blake RN Scrub Person: ST Angela Fellow: Kemar Sahni MD 2nd Respiratory Tech: Marty Clark RN 3rd Respiratory Tech: Candis Mcdaniel RN Estimated Blood Loss: 300 [...] (Berkowitz) Triple-lumen (3-Way) 18 Fr. (Active) Status Crescent Drainage 10/26/241999 Collection Container Standard drainage bag [...] day Drains: 2 Intraabdominal (perihepatic) UNOS ID [id number], Match Run [id number] Donor: young DCD NRP Kid WIT 27 [...] MD - 10/27/2024 12:00 AM EDT [facility] PATIENT NAME: BLAIR GILBERT DATE OF : 1985 CSN: [id number] PHYSICIAN: Semaj Mcnair III, MD ADMIT DATE: 10/25/2024 DICTATED BY: Semaj Mcnair III, MD SURGERY DATE: 10/27/2024 OPERATIVE REPORT SURGEON: Semaj Mcnair III, MD TRIM CREW SUPERVISOR SURGEON: Kemar Sahni MD. PREOPERATIVE DIAGNOSIS: [...] were made hemostatic with the argon beam plant anatomy teacher. We assessed the flows of the portal [...] a mucocele formation. We then performed a fwyx-fk-qffu choledochocholedochostomy in an end to end fashion [...] small umbilicalhernia that was closed with a vnegty-fg-oqhhb 0 PDS suture. At this point, we [...] complications. SEMAJ MCNAIR III, MD RCQ/AQ JOB#: [id number] * Semaj Mcnair III, MD - 10/26/2024 7:00 AM EDT Patient Name: Blair Gilbert Date: 1985 Billing #: [id number] Date of Procedure: 10/25/2024 - 10/26/2024 Diagnosis: Chronic Hepatic Failure without coma Procedure: 1. Orthotopic Liver Transplant 2. Back Bench Preparation Donor Liver 3. Temporary portocaval shunt 4. Perihepatic packing for control of hemorrhage 5. Placement of external choledochal stent 6. Temporary abdominal closure Attending surgeons: Semaj Mcnair III, MD It Trainee Surgeon(s): Sveta Judge MD Findings: Whole organ placed in piggyback fashion with suprahepatic cava of donor to common orifice of all three hepatic veins for IVC anastomosis. Donor main portal vein to recipient main portal vein. Donor common hepatic artery to recipient right hepatic artery. Temporary abdominal with perihepatic packingfor control of hemorrhage. Externalization of bile duct with 8 [place] pediatric feeding tube. Portal Flow Modulation No [...] This donor was ABO O and UNOSID [id number], Match Run [id number]. This was a 42-year-old donation after circulatory [...] After completion of the outflow anastomosis, a Georgian clamp was placed across the donor suprahepatic [...] artery flows were then measured with the Tunespeak device. The portal flow was 3.4 L/min [...] do a temporary abdominal closure. An 8 [place] pediatric feeding tube was brought through the [...] Sveta Alves III, MD Anesthesia: General Staff: Respiratory Tech: Mak Maher RN; Marty Clark RN Scrub Person: ST Angela Resident: Thuy Leon MD soldering inspector: Jose Daniel Arana RRT Estimated Blood Loss: [...] 5 Surgery Information: -[facility]#: [id number] -ABO: O to O -Recipient: SLK candidate [...] 1:19 PM EDTAssociated Order(s): IP CONSULT TO CODING QUALITY ANALYST [facility] Transplant [...] Gomez MSN, RN, NPD- Diabetes Education Office [phone] Schedule: M-F 8:00am-4:30pm * Ben Weiss, RD [...] I/O: +23.2L net volume. Last BM Date: (PRODUCT STRATEGY DIRECTOR). Admit Weight: 270 lb (122.5 kg) Current [...] Based on DBW of 93.1 kg Kcals/day: 5104-8138 (25-30 kcals/kg) Protein g/day: 140-190 (1.5-2.0 g/kg) [...] Dietitian - Solid Organ Transplant Contact via RealDirect Chat * Lavell Kramer MD - 10/27/2024 11:09 AM EDTAssociated Order(s): INPATIENT CONSULT TO TRANSPLANT INFECTIOUS DISEASES Infectious Disease Consultation Patient: Blair Gilbert CSN: [id number] Assessment & Plan 39 y.o. M s/p [...] blood cx's if febrile Lavell Kramer MD [phone] Chief Complaint Long Qtc History of Present [...] Resource Strain: Low Risk (07/09/2024) Received from [facility] Overall Financial Resource Strain (CARDIA) Difficulty [...] No Physical Activity: Unknown (07/14/2024) Received from [facility] Exercise Vital Sign Days of Exercise per Week: Patient unable to answer Minutes of Exercise per Session: Not on file Stress: Patient Unable To Answer (07/14/2024) Received from [facility] [place] [facility] Occupational Health - Occupational Stress Questionnaire Feeling of Stress : Patient unable to answer Social Connections: Patient Unable To Answer (07/14/2024) Received from [facility] Social Connection and Isolation Panel [NHANES] Frequency of Communication with Friends and Family: Patient unable to answer Frequency of Social Gatherings with Friends and Family: Patient unable to answer Attends Jew Services: Patient unable to answer Active Member [...] to 4 times a day. DEXCOM G7 LAND LEASES AND RENTALS MANAGER Misc Use reader as directed. DEXCOM G7 [...] and at bedtime. lancets (ACCU-CHEK SOFTCLIX LANCETS) [facility] Use to test blood sugar up to 4 times a day. methocarbamoL (ROBAXIN) 500 MG tablet Take 1 tablet (500 mg total) by mouth 3 times a day. mycophenolate (CELLCEPT) 250 mg capsule Take 2 capsules (500 mg total) by mouth 2 times a day. 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 No indications for TRADE ECONOMIST. Good UOP - Noted KT US WNL [...] preliminary until attending attestation. Lauren Santos, DNP, WRITER EDITOR, FIRE EXTINGUISHER MECHANIC- Transplant Nephrology [phone] Preferred contact: secure chat [1] Allergies Allergen [...] Gonzalez MD, MEd, FASN * Marcellus Hebert, PHYSICAL TRAINER, CELL COVERER - 10/27/2024 10:21 AM EDT HEALTH Care Management/Social Work Assessment Patient Information Patient Name: Blair Gilbert Hospital Day: 2 Inpatient/Observation: Inpatient Admit Date: 10/25/2024 Admission Diagnosis: Liver transplant recipient (CMS-HCC) [Z94.4] Attending provider: Semaj Mcnair III, MD PCP: Enedina Mcguire NP Home Pharmacy: [facility] [address] [place] [address], [facility] [address] [address] [facility] [address] [facility] [address] Issues related to obtaining medications: N/A Payor Information Medical Insurance Coverage: Payor: [facility] / Plan: [facility] G[facility] / [...] resides with his spouse at their [address] in [place]. 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 Patient's LNOK:Spouse, Abdiaziz Gilbert, Patient has no current or past history of suicidal/homicidal ideation. Patient has a history of mental health diagnoses, PTSD and Generalized Anxiety Disorder. Patient is connected with TransplantPsychiatrist and prescribed Prozac. Patient has a history of alcohol use and has completed 12 weeksof CD Treatment at [facility]. Spouse explained that he will complete a 6 month virtual program post transplant but could not recall the name of the program. Patient has no current tobacco use. No previous need or recommendation for home health care services and no previous placements at care home facility and/or inpatient rehab program. Patient has [...] interest(s) are disclosed as appropriate. Marcellus Hebert, PHYSICAL TRAINER, CELL COVERER Phone Number: [phone] * John Moreno MD - 10/26/2024 3:41 AM EDT SURGICAL ICU CONSULT NOTE 10/26/2024 3:41 AM Name: Blair Gilbert CSN: [id number] HPI: Blair Gilbert is a 39 y.o. [...] at 9:00 PM naloxone (NARCAN) 4 mg/actuation [place] Apply 1 spray in one nostril if [...] % sodium chloride norepinephrine 18 mcg/min (10/26/24 5493) vasopressin 0.04 Units/min (10/26/24 0244) PRN Meds: [...] input(s): PHART , PCO2 , PO2ART , VUS9IEQ , BEART in the last 72 hours. [...] at baseline or with provocation, shows no nqxjc-bb-qcvf atrial level shunt. - Pulmonary arteries: Systolic [...] IV pantoprazole while intubated, NPO Last BM: PRODUCT STRATEGY DIRECTOR Bowel regimen: Senna/Miralax when able Nausea: Zofran PRN FLUID/ELECTROLYTES Recent Labs 10/25/242216 NA 137 K 2.1* CL 100 CO2 20* BUN 74* CREATININE 3.87* CALCIUM 9.3 PHOS 5.9* GLUCOSE 114* Intake/Output Summary (Last 24 hours) at 10/26/2024 0341 Last data filed at 10/26/2024 0326 Gross per 24 hour Intake 56492 ml Output 675 ml Net 75184 ml IV Fluids: EPINEPHrine (ADRENALIN) 10 mg [...] results for input(s): TEGANGLE , TEGKTIME , OXOWDYVE55 , TEGMAXAMPL , TEGRTIME , CBMZ in [...] in sodium chloride 0.9% 100 mL IVPB (Fsai8Wko) 2 g Every 6 hours 10/26/2024 -- Admin Instructions: Use Kycz4Vwd Adapter - Mix Thoroughly Before Administration Notes to Pharmacy: On sales order clerk estimated creatinine clearance is 35.9 mL/min (A) (based on SCr of 3.87 mg/dL (H)). Route: Intravenous AMPicillin 2 g in sodium chloride 0.9% 100 mL IVPB (Uuxy5Myh) 2 g Once 10/26/2024 -- Admin Instructions: Use Gprh5Ghw Adapter - Mix Thoroughly Before Administration Notes to Pharmacy: On sales order clerk estimated creatinine clearance is 35.9 mL/min (A) (based on SCr of 3.87 mg/dL (H)). Route: Intravenous cefTRIAXone (ROCEPHIN) 2 g in sodium chloride 0.9 % 100 mL Exfy4Kqh (Completed) 2 g Once 10/25/2024 10/26/2024 Admin Instructions: Use Kerz7Vxm Adapter - Mix Thoroughly Before Administration Route: [...] R IJ Mac Arterial Line? R radial [place] Urinary Catheter? Berkowitz - Reason: Adequate I/O [...] 47 (H) 10/26/2024 PO2ART 127 (H) 10/26/2024 JGB1UHY 21 (L) 10/26/2024 BEART -5.4 (L) 10/26/2024 HWI9YPF 94.6 (L) 10/26/2024 C7VMMIMJ 98 10/26/2024 P:F ratio = 363 CARDIOVASCULAR: [...] [facility] Academic Office [phone] For Transfers, call [phone] documented in this encounter Nursing Notes * [...] 10/31/2024 11:34 AM EDT [facility] [...] Renal cell carcinoma ([facility]), Thrombocytopenia ([facility]), and Thyroid disease. PCP: Enedina Mcguire NP Home Pharmacy: [facility] [facility] [address] [address] [facility] [address] [facility] [address] [facility] [place] [address] [place] [address] Medical Insurance Coverage: Payor: [employer] / Plan: [employer] / Product Type: *No Product type* / Other Pertinent Information SW received report from Transplant medical team. SW completed chart review. Per report patient is not medically ready to discharge. Patient recommended for home PT/OT and 2x weekly labs. SW followed up on [facility] referrals and submitted a few more C referrals. Update: MEREDITH made nurse educator aware that there were no accepting [facility] agencies([facility], [facility], [facility]) and patient would need to outpatient for PT/OT and labs. Discharge Plan Anticipated discharge plan: Home with HHC vs Home with outpatient Anticipated discharge date: 11/01 CM/SW will continue to follow and remain available for discharge planning needs. NUBIA Escalera, RONALDO Cell [phone] * Plan of Care - Paulette Flannery [...] disease. PCP: Enedina Mcguire NP Home Pharmacy: [facility] [address] [place] [address] [place] [address] [address] [facility] [address] [facility] [address] [facility] [address] [address] Medical Insurance Coverage: Payor: [facility] / Plan: [facility] / Product Type: *No Product type* [...] SW submitted blanket HHC referral to [facility], [facility], [facility], and [facility]. Awaiting responses. SW to followpending [...] for discharge planning needs. Citlaly Nova MSW, CELL COVERER Inpatient Clerical Car Checker/Care Coordination [phone] * Plan of Care - Soco Yap [...] Escalera, RONALDO - 10/28/2024 2:29 PM EDT [facility] [...] disease. PCP: Enedina Mcguire NP Home Pharmacy: [facility] [address] [place] [id number] [address] [address] [facility] [address] [facility] [address] [facility] [place] [address] [facility] [place] [address] Medical Insurance Coverage: Payor: [facility] / Plan: [employer] / [...] discharge planning needs. NUBIA Escalera, RONALDO Cell [phone] * Plan of Care - Elaine Carrillo [...] at all times. Outcome: Completed Problem: Non-violent, lwn-oxat-viyxbqkortn restraints Description: Less restrictive alternative interventions will [...] protection of medical procedures, or protection of bacteriologist medical access. Outcome: Completed * Plan of Care [...] foods as appropriate. Outcome: Progressing Problem: Non-violent, mfd-cboa-jnczgnlctxv restraints Description: Less restrictive alternative interventions will [...] protection of medical procedures, or protection of bacteriologist medical access. Outcome: Progressing * Plan of Care - Shanel Shen RN - 10/27/2024 9:00 AM EDT Problem: Non-violent, trs-pieq-mxycokrggxs restraints Description: Less restrictive alternative interventions will [...] - 10/26/2024 7:41 PM EDT Problem: Non-violent, cjk-rexk-fsxummvuiqy restraints Description: Less restrictive alternative interventions will [...] protection of medical procedures, or protection of bacteriologist medical access. Outcome: Not Progressing Patient in bilateral [...] restraint flowsheet for further documentation. Problem: Non-violent, ksw-zmqa-htutcakewvv restraints Description: Less restrictive alternative interventions will [...] protection of medical procedures, or protection of bacteriologist medical access. Outcome: Progressing * Plan of Care [...] [facility] ENDOSCOPY [address] [place] [id number] Chris Orsoco MD [address] [place] [phone] 12/05/2024 8:01 AM EDT - 12/05/2024 8:31 AM EDT Surgery [facility] ENDOSCOPY [address] [place] [address] Chris Orosco MD [address] [place] [phone] EGD Pending Results Name Type Priority Associated [...] Routine 10/31/2024 11:59 AM EDT US DUPLEX VTX-ZDTEOY-VGMMAPN COMPLETE Routine 10/31/2024 10:19 AM EDT US [...] Routine 10/28/2024 5:31 PM EDT US DUPLEX UNS-OPUZZB-IDXVYMO COMPLETE STAT 10/28/2024 4:23 PM EDT US [...] Routine 10/27/2024 10:00 AM EDT US DUPLEX QKC-KHAMMR-GAXMZUP COMPLETE STAT 10/27/2024 9:51 AM EDT US [...] Acute kidney injury superimposed on CKD (CMS-HCC) NM RENAL ALTRNSPLJ IMPLTJ GRF W/PERSONAL PROPERTY APPRAISER NEPHRECTOMY 10/27/2024 2:32 AM EDT Acute kidney [...] - 100 mg/dL 11/02/2024 5:45 PM EDT [facility] Blood 11/02/2024 5:44 PM EDT 11/02/2024 5:45 PM EDT us Semaj Mcnair III, MD POINT OF CARE TEST ORDERABLES Final Result [facility] [address] [facility]. [address] * (ABNORMAL) POC Glucose Monitoring Device (11/02/2024 3:34 PM EDT) POC Glucose Monitoring Device 208(H) 70 - 100 mg/dL 11/02/2024 3:35 PM EDT [facility] Blood 11/02/2024 3:34 PM EDT 11/02/2024 3:35 PM EDT Semaj Mcnair III, MD POINT OF CARE TEST ORDERABLES Final Result Performing Organization Address City/[facility]/ZIP Co de Phone Number [facility] [address] [facility]. [address] * (ABNORMAL) POC Glucose Monitoring Device (11/02/2024 1:18 PM EDT) POC Glucose Monitoring Device 225(H) 70 - 100 mg/dL 11/02/2024 1:19 PM EDT [facility] Blood 11/02/2024 1:18 PM EDT 11/02/2024 1:19 PM EDT Semaj Mcnair III, MD POINT OF CARE TEST ORDERABLES Final Result Performing Organization Address City/[facility]/ZIP Co de Phone Number [facility] [address] [facility]. [address] * (ABNORMAL) POC Glucose Monitoring Device (11/02/2024 8:59 AM EDT) POC Glucose Monitoring Device 129(H) 70 - 100 mg/dL 11/02/2024 9:00 AM EDT [facility] Blood 11/02/2024 8:59 AM EDT 11/02/2024 9:00 AM EDT Semaj Mcnair III, MD POINT OF CARE TEST ORDERABLES Final Result Performing Organization Address [facility] [place]/[facility] Co de Phone Number [facility] [address] * Tacrolimus level (11/02/2024 5:53 AM EDT) Tacrolimus (LC-MS) 7.4 3.0 - 15.0 ng/mL 11/02/2024 2:23 PM EDT [facility] Comment:Performed via liquid chromatography tandem mass [...] ORDERABLES Denisse l Result Performing Organization Address City/[facility]/ZIP Co de Phone Number [facility] [address] [facility] * (ABNORMAL) Renal Function Panel w/EGFR (11/02/2024 5:53 AM EDT) Sodium 140 133 - 146 mmol/L 11/02/2024 6:47 AM EDT [facility] Potassium 3.3(L) 3.5 - 5.3 mmol/L 11/02/2024 6:47 AM EDT [facility] Chloride 107 98 - 110 mmol/L 11/02/2024 6:47 AM EDT [facility] CO2 25 21 - 33 mmol/L 11/02/2024 6:47 AM EDT [facility] Anion Gap 8 3 - 16 mmol/L 11/02/2024 6:47 AM EDT [facility] BUN 31(H) 7 - 25 mg/dL 11/02/2024 6:47 AM EDT [facility] Creatinine 1.08 0.60 - 1.30 mg/dL 11/02/2024 6:47 AM EDT [facility] Glucose 150(H) 70 - 100 mg/dL 11/02/2024 6:47 AM EDT [facility] Calcium 7.8(L) 8.6 - 10.3 mg/dL 11/02/2024 6:47 AM EDT [facility] Phosphorus 2.0(L) 2.1 - 4.7 mg/dL 11/02/2024 6:47 AM EDT [facility] Albumin 3.2(L) 3.5 - 5.7 g/dL 11/02/2024 6:47 AM EDT [facility] Osmolality, Calculated 299 278 - 305 mOsm/kg 11/02/2024 6:47 AM EDT [facility] EGFR 88 11/02/2024 6:47 AM EDT [facility] Comment:As of 2021, the estimated GFR [...] 11/02/2024 6:12 AM EDT us Beata Horner [facility] BLOOD ORDERABLES Denisse tori Result [facility] [address] * (ABNORMAL) Magnesium (11/02/2024 5:53 AM EDT) Magnesium 1.3(L) 1.5 - 2.5 mg/dL 11/02/2024 6:47 AM EDT [facility] Plasma 11/02/2024 5:53 AM EDT 11/02/2024 6:12 AM EDT Beata Horner [facility] BLOOD ORDERABLES Denisse l Result [facility] [address] [facility]. [address] * (ABNORMAL) Hepatic Function Panel (11/02/2024 5:53 AM EDT) Total Bilirubin 1.6(H) 0.0 - 1.5 mg/dL 11/02/2024 6:47 AM EDT [facility] Bilirubin, Direct 0.81(H) 0.00 - 0.40 mg/dL 11/02/2024 6:47 AM EDT [facility] AST 30 13 - 39 U/L 11/02/2024 6:47 AM EDT [facility] ALT 66(H) 7 - 52 U/L 11/02/2024 6:47 AM EDT [facility] Alkaline Phosphatase 126(H) 36 - 125 U/L 11/02/2024 6:47 AM EDT [facility] Total Protein 4.6(L) 6.4 - 8.9 g/dL 11/02/2024 6:47 AM EDT [facility] Albumin 3.2(L) 3.5 - 5.7 g/dL 11/02/2024 6:47 AM EDT [facility] Bilirubin, Indirect 0.79 0.00 - 1.10 mg/dL 11/02/2024 6:47 AM EDT [facility] Plasma 11/02/2024 5:53 AM EDT 11/02/2024 6:12 AM EDT us Beata Horner [facility] BLOOD ORDERABLES Denisse l Result [facility] [address] * (ABNORMAL) CBC (11/02/2024 5:53 AM EDT) WBC 5.8 3.8 - 10.8 10E3/uL 11/02/2024 6:21 AM EDT [facility] RBC 3.12(L) 4.20 - 5.80 10E6/uL 11/02/2024 6:21 AM EDT [facility] Hemoglobin 9.2(L) 13.2 - 17.1 g/dL 11/02/2024 6:21 AM EDT [facility] Hematocrit 27.5(L) 38.5 - 50.0 % 11/02/2024 6:21 AM EDT [facility] MCV 87.9 80.0 - 100.0 fL 11/02/2024 6:21 AM EDT [facility] MCH 29.5 27.0 - 33.0 pg 11/02/2024 6:21 AM EDT [facility] MCHC 33.5 32.0 - 36.0 g/dL 11/02/2024 6:21 AM EDT [facility] RDW 17.5(H) 11.0 - 15.0 % 11/02/2024 6:21 AM EDT [facility] Platelets 61(L) 140 - 400 10E3/uL 11/02/2024 6:21 AM EDT [facility] MPV 7.9 7.5 - 11.5 fL 11/02/2024 6:21 AM EDT [facility] Whole Blood 11/02/2024 5:53 AM EDT 11/02/2024 6:12 AM EDT Beata Dada Horner [facility] BLOOD ORDERABLES Denisse l Result [facility] [address] [place] [address], [facility] * (ABNORMAL) POC Glucose Monitoring Device (11/01/2024 9:26 PM EDT) POC Glucose Monitoring Device 199(H) 70 - 100 mg/dL 11/01/2024 9:27 PM EDT [facility] Blood 11/01/2024 9:26 PM EDT 11/01/2024 9:27 PM EDT Semaj Mcnair III, MD POINT OF CARE TEST ORDERABLES Final Result Performing Organization Address City/[facility]/ZIP Co de Phone Number [facility] [address] * (ABNORMAL) POC Glucose Monitoring Device (11/01/2024 5:04 PM EDT) POC Glucose Monitoring Device 255(H) 70 - 100 mg/dL 11/01/2024 5:05 PM EDT [facility] Blood 11/01/2024 5:04 PM EDT 11/01/2024 5:05 PM EDT Semaj Mcnair III, MD POINT OF CARE TEST ORDERABLES Final Result Performing Organization Address [facility] [place]/[facility] de Phone Number [facility] [address] * (ABNORMAL) Renal Function Panel w/EGFR, STAT (11/01/2024 2:17 PM EDT) Sodium 139 133 - 146 mmol/L 11/01/2024 3:10 PM EDT [facility] Potassium 3.3(L) 3.5 - 5.3 mmol/L 11/01/2024 3:10 PM EDT [facility] Chloride 107 98 - 110 mmol/L 11/01/2024 3:10 PM EDT [facility] CO2 24 21 - 33 mmol/L 11/01/2024 3:10 PM EDT [facility] Anion Gap 8 3 - 16 mmol/L 11/01/2024 3:10 PM EDT [facility] BUN 35(H) 7 - 25 mg/dL 11/01/2024 3:10 PM EDT [facility] Creatinine 1.22 0.60 - 1.30 mg/dL 11/01/2024 3:10 PM EDT [facility] Glucose 203(H) 70 - 100 mg/dL 11/01/2024 3:10 PM EDT [facility] Calcium 8.3(L) 8.6 - 10.3 mg/dL 11/01/2024 3:10 PM EDT [facility] Phosphorus 2.2 2.1 - 4.7 mg/dL 11/01/2024 3:10 PM EDT [facility] Albumin 3.4(L) 3.5 - 5.7 g/dL 11/01/2024 3:10 PM EDT [facility] Osmolality, Calculated 302 278 - 305 mOsm/kg 11/01/2024 3:10 PM EDT [facility] EGFR 76 11/01/2024 3:10 PM EDT [facility] Comment:As of 2021, the estimated GFR [...] Marks MD LAB BLOOD ORDERABLES Final Result [facility] [address] [place] [address], [facility] * X-ray Portable Abdomen AP view (11/01/2024 [...] - 100 mg/dL 11/01/2024 12:23 PM EDT [facility] Blood 11/01/2024 12:2 2 PM EDT 11/01/2024 12:23 PM EDT Semaj Mcnair III, MD POINT OF CARE TEST ORDERABLES Final Result Performing Organization Address [facility] [place]/[facility] Co de Phone Number [facility] [address] * (ABNORMAL) POC Glucose Monitoring Device (11/01/2024 8:50 AM EDT) POC Glucose Monitoring Device 175(H) 70 - 100 mg/dL 11/01/2024 8:51 AM EDT [facility] Blood 11/01/2024 8:50 AM EDT 11/01/2024 8:51 AM EDT Semaj Mcnair III, MD POINT OF CARE TEST ORDERABLES Final Result Performing Organization Address [facility] Phone Number [facility] [address] * Tacrolimus level (11/01/2024 6:01 AM EDT) Tacrolimus (LC-MS) 7.5 3.0 - 15.0 ng/mL 11/01/2024 12:14 PM EDT [facility] Comment:Performed via liquid chromatography tandem mass [...] l Result Performing Organization Address [facility] [place]/[facility] Co de Phone Number [facility] [address] [place] [id number], [facility] * (ABNORMAL) Renal Function Panel w/EGFR (11/01/2024 6:01 AM EDT) Sodium 139 133 - 146 mmol/L 11/01/2024 6:57 AM EDT [facility] Potassium 3.3(L) 3.5 - 5.3 mmol/L 11/01/2024 6:57 AM EDT [facility] Chloride 108 98 - 110 mmol/L 11/01/2024 6:57 AM EDT [facility] CO2 22 21 - 33 mmol/L 11/01/2024 6:57 AM EDT [facility] Anion Gap 9 3 - 16 mmol/L 11/01/2024 6:57 AM EDT [facility] BUN 37(H) 7 - 25 mg/dL 11/01/2024 6:57 AM EDT [facility] Creatinine 1.30 0.60 - 1.30 mg/dL 11/01/2024 6:57 AM EDT [facility] Glucose 163(H) 70 - 100 mg/dL 11/01/2024 6:57 AM EDT [facility] Calcium 8.2(L) 8.6 - 10.3 mg/dL 11/01/2024 6:57 AM EDT [facility] Phosphorus 2.9 2.1 - 4.7 mg/dL 11/01/2024 6:57 AM EDT [facility] Albumin 3.1(L) 3.5 - 5.7 g/dL 11/01/2024 6:57 AM EDT [facility] Osmolality, Calculated 300 278 - 305 mOsm/kg 11/01/2024 6:57 AM EDT [facility] EGFR 71 11/01/2024 6:57 AM EDT [facility] Comment:As of 2021, the estimated GFR [...] 6:01 AM EDT 11/01/2024 6:20 AM EDT [employer] LAB BLOOD ORDERABLES Denisse l Result Performing Organization Address City/[facility]/ZIP Co de Phone Number [facility] [address] [facility]. [address] * Magnesium (11/01/2024 6:01 AM EDT) Magnesium 1.5 1.5 - 2.5 mg/dL 11/01/2024 6:57 AM EDT [facility] Plasma 11/01/2024 6:01 AM EDT 11/01/2024 6:20 AM EDT [employer] [facility] BLOOD ORDERABLES Denisse l Result Performing Organization Address [facility] [place]/[facility] Co de Phone Number [facility] [address] [facility]. [address] * (ABNORMAL) Hepatic Function Panel (11/01/2024 6:01 AM EDT) Total Bilirubin 2.0(H) 0.0 - 1.5 mg/dL 11/01/2024 6:57 AM EDT [facility] Bilirubin, Direct 1.06(H) 0.00 - 0.40 mg/dL 11/01/2024 6:57 AM EDT [facility] AST 21 13 - 39 U/L 11/01/2024 6:57 AM EDT [facility] ALT 62(H) 7 - 52 U/L 11/01/2024 6:57 AM EDT [facility] Alkaline Phosphatase 114 36 - 125 U/L 11/01/2024 6:57 AM EDT [facility] Total Protein 4.6(L) 6.4 - 8.9 g/dL 11/01/2024 6:57 AM EDT [facility] Albumin 3.1(L) 3.5 - 5.7 g/dL 11/01/2024 6:57 AM EDT [facility] Bilirubin, Indirect 0.94 0.00 - 1.10 mg/dL 11/01/2024 6:57 AM EDT [facility] Plasma 11/01/2024 6:01 AM EDT 11/01/2024 6:20 AM EDT us Beata Horner [employer] LAB BLOOD ORDERABLES Denisse valle Result [facility] [address] [place] [address], [facility] * (ABNORMAL) CBC (11/01/2024 6:01 AM EDT) WBC 5.9 3.8 - 10.8 10E3/uL 11/01/2024 6:29 AM EDT [facility] RBC 3.19(L) 4.20 - 5.80 10E6/uL 11/01/2024 6:29 AM EDT [facility] Hemoglobin 9.5(L) 13.2 - 17.1 g/dL 11/01/2024 6:29 AM EDT [facility] Hematocrit 27.8(L) 38.5 - 50.0 % 11/01/2024 6:29 AM EDT [facility] MCV 87.1 80.0 - 100.0 fL 11/01/2024 6:29 AM EDT [facility] MCH 29.9 27.0 - 33.0 pg 11/01/2024 6:29 AM EDT [facility] MCHC 34.3 32.0 - 36.0 g/dL 11/01/2024 6:29 AM EDT [facility] RDW 17.4(H) 11.0 - 15.0 % 11/01/2024 6:29 AM EDT [facility] Platelets 56(L) 140 - 400 10E3/uL 11/01/2024 6:29 AM EDT [facility] MPV 8.3 7.5 - 11.5 fL 11/01/2024 6:29 AM EDT [facility] Whole Blood 11/01/2024 6:01 AM EDT 11/01/2024 6:19 AM EDT Beata [place] Horner [facility] BLOOD ORDERABLES Denisse l Result [facility] [address] [facility]. [address] * (ABNORMAL) POC Glucose Monitoring Device (10/31/2024 9:15 PM EDT) POC Glucose Monitoring Device 171(H) 70 - 100 mg/dL 10/31/2024 9:15 PM EDT [facility] Blood 10/31/2024 9:15 PM EDT 10/31/2024 9:15 PM EDT Semaj Mcnair III, MD POINT OF CARE TEST ORDERABLES Final Result Performing Organization Address City/[facility]/ZIP Co de Phone Number [facility] [address] [facility]. [address] * (ABNORMAL) POC Glucose Monitoring Device (10/31/2024 5:56 PM EDT) POC Glucose Monitoring Device 179(H) 70 - 100 mg/dL 10/31/2024 5:57 PM EDT [facility] Blood 10/31/2024 5:56 PM EDT 10/31/2024 5:57 PM EDT Semaj Mcnair III, MD POINT OF CARE TEST ORDERABLES Final Result [facility] [address] [facility]. [address] * CT Abdomen and Pelvis WO [...] Adrenal gland: No focal nodule seen. Kidneys: [place] kidneys noted with nonobstructing calcifications on the right. Findings of postsurgical changes in the left elem kidney. Mild right hydronephrosis without an obstructive [...] Adrenal gland: No focal nodule seen. Kidneys: [place] kidneys noted with nonobstructing calcifications on theright. Findings of postsurgical changes in the left elem kidney. Mildright hydronephrosis without an obstructive course [...] QT: 400 ms QTc: 456 ms P [place]: 49 degrees R [place]: 3 degrees T [place]: 14 degrees Diagnosis Line: NORMAL SINUS RHYTHM ^ NORMAL ECG ^ ^ Confirmed by MD JEANETTE, TORI ([id number]) on 11/02/2024 6:56:52 AM Priti Geiger CNP ECG ORDERABLES Final Result MUSE * (ABNORMAL) Urinalysis w/Rfl to Microscopic (10/31/2024 1:18 PM EDT) Color, UA Straw Yellow,Straw 10/31/2024 1:46 PM EDT [facility] Clarity, UA Clear Clear 10/31/2024 1:46 PM EDT [facility] Specific Crescent, UA 1.013 1.005 - 1.035 10/31/2024 1:46 PM EDT [facility] pH, UA 6.5 5.0 - 8.0 10/31/2024 1:46 PM EDT [facility] Protein, UA Negative Negative mg/dL 10/31/2024 1:46 PM EDT [facility] Glucose, UA Negative Negative mg/dL 10/31/2024 1:46 PM EDT [facility] Ketones, UA Negative Negative mg/dL 10/31/2024 1:46 PM EDT [facility] Bilirubin, UA Negative Negative 10/31/2024 1:46 PM EDT [facility] Blood, UA Large(A) Negative 10/31/2024 1:46 PM EDT [facility] Nitrite, UA Negative Negative 10/31/2024 1:46 PM EDT [facility] Urobilinogen, UA <2.0 0.2 - 1.9 mg/dL 10/31/2024 1:46 PM EDT [facility] Leukocyte Esterase, UA Negative Negative 10/31/2024 1:46 PM EDT [facility] RBC, UA >100(H) 0 - 3 /HPF 10/31/2024 1:46 PM EDT [facility] WBC, UA 3 0 - 5 /HPF 10/31/2024 1:46 PM EDT [facility] Hyaline Casts, UA 3(H) 0 - 2 /LPF 10/31/2024 1:46 PM EDT [facility] Urine 10/31/2024 1:18 PM EDT 10/31/2024 1:32 PM EDT Priti Geiger CNP URINE ORDERABLES Final Result Performing Organization Address [facility] [place]/[facility] Co de Phone Number [facility] [address] * (ABNORMAL) Post Kidney Transplant Urine Culture (10/31/2024 1:18 PM EDT) Culture Result Enterococcus faecium, Vancomycin Resistant(A) [facility] Comment: 1,000- <10,000 cfu/mL Identified by [...] Final Result Performing Organization Address [facility] [place]/[facility] Co de Phone Number [facility] [address] [place] [address] * (ABNORMAL) POC Glucose Monitoring Device (10/31/2024 11:59 AM EDT) POC Glucose Monitoring Device 130(H) 70 - 100 mg/dL 10/31/2024 12:21 PM EDT [facility] Blood 10/31/2024 11:5 9 AM EDT 10/31/2024 12:21 PM EDT Semaj Mcnair III, MD POINT OF CARE TEST ORDERABLES Final Result [facility] [address] [place] [address], [facility] * US Abdomen Limited (10/31/2024 10:19 AM [...] EXAM: US ABDOMEN LIMITED EXAM: US DUPLEX [id number] COMPLETE INDICATION: Post-op liver transplant COMPARISON: None [...] visualized secondary to poor acoustic windows. The elem right kidney measures 11.6 cm in length. [...] EXAM: US ABDOMEN LIMITED EXAM: US DUPLEX [id number] COMPLETE INDICATION: Post-op liver transplant COMPARISON: None [...] well visualized secondary to poor acousticwindows. The elem right kidney measures 11.6 cm in length. [...] at 10/31/2024 10:35 AM EDT Beata Horner [facility] US ORDERABLES Final R esult [...] 10/31/2024 10:29 AM EDT us Beata Horner [employer] IMG US ORDERABLES Final R esult * US Duplex [id number] Comp (10/31/2024 10:19 AM EDT) Anatomical Region [...] EXAM: US ABDOMEN LIMITED EXAM: US DUPLEX [id number] COMPLETE INDICATION: Post-op liver transplant COMPARISON: None [...] visualized secondary to poor acoustic windows. The elem right kidney measures 11.6 cm in length. [...] EXAM: US ABDOMEN LIMITED EXAM: US DUPLEX [id number] COMPLETE INDICATION: Post-op liver transplant COMPARISON: None [...] well visualized secondary to poor acousticwindows. The elem right kidney measures 11.6 cm in length. [...] at 10/31/2024 10:35 AM EDT Beata Horner [facility] US ORDERABLES Final R esult * ECG 12-lead (MUSE) (10/31/2024 8:57 AM EDT) 10/31/2024 8:57 AM EDT Narrative MUSE - 11/01/2024 9:21 AM EDT Ventricular Rate: 83 BPM Atrial Rate: 83 BPM P-R Interval: 168 ms QRS Duration: 102 ms QT: 392 ms QTc: 460 ms P [place]: 64 degrees R [place]: -18 degrees T [place]: 7 degrees Diagnosis Line: NORMAL SINUS RHYTHM ^ NORMAL ECG ^ ^ Confirmed by MD JOE, OTIS ([id number]) on 11/01/2024 9:21:13 AM us Priit Geiger [employer] ECG ORDERABLES Final Result MUSE * (ABNORMAL) POC Glucose Monitoring Device (10/31/2024 8:44 AM EDT) [facility] POC Glucose Monitoring Device 145(H) 70 - 100 mg/dL 10/31/2024 8:45 AM EDT [facility] Blood 10/31/2024 8:44 AM EDT 10/31/2024 8:44 AM EDT Semaj Mcnair III, MD POINT OF CARE TEST ORDERABLES Final Result Performing Organization Address [facility] [place]/[facility] Co de Phone Number [facility] [address] [facility]. [address] * Tacrolimus level (10/31/2024 6:40 AM EDT) [facility] Tacrolimus (LC-MS) 8.4 3.0 - 15.0 ng/mL 10/31/2024 10:05 AM EDT [facility] Comment:Performed via liquid chromatography tandem mass [...] ORDERABLES Denisse l Result Performing Organization Address City/[facility]/ZIP Co de Phone Number [facility] [address] * (ABNORMAL) Renal Function Panel w/EGFR (10/31/2024 6:40 AM EDT) [facility] Sodium 141 133 - 146 mmol/L 10/31/2024 8:09 AM EDT [facility] Potassium 3.5 3.5 - 5.3 mmol/L 10/31/2024 8:09 AM EDT [facility] Chloride 111(H) 98 - 110 mmol/L 10/31/2024 8:09 AM EDT [facility] CO2 20(L) 21 - 33 mmol/L 10/31/2024 8:09 AM EDT [facility] Anion Gap 10 3 - 16 mmol/L 10/31/2024 8:09 AM EDT [facility] BUN 54(H) 7 - 25 mg/dL 10/31/2024 8:09 AM EDT [facility] Creatinine 1.75(H) 0.60 - 1.30 mg/dL 10/31/2024 8:09 AM EDT [facility] Glucose 136(H) 70 - 100 mg/dL 10/31/2024 8:09 AM EDT [facility] Calcium 8.7 8.6 - 10.3 mg/dL 10/31/2024 8:09 AM EDT [facility] Phosphorus 4.1 2.1 - 4.7 mg/dL 10/31/2024 8:09 AM EDT [facility] Albumin 3.2(L) 3.5 - 5.7 g/dL 10/31/2024 8:09 AM EDT [facility] Osmolality, Calculated 309(H) 278 - 305 mOsm/kg 10/31/2024 8:09 AM EDT [facility] EGFR 50 10/31/2024 8:09 AM EDT [facility] Comment:As of 2021, the estimated GFR [...] 10/31/2024 7:35 AM EDT Beata Dada Horner [employer] LAB BLOOD ORDERABLES Denisse l Result Performing Organization Address City/[facility]/ZIP Co de Phone Number [facility] [address] [facility]. [address] * Magnesium (10/31/2024 6:40 AM EDT) Magnesium 1.8 1.5 - 2.5 mg/dL 10/31/2024 8:09 AM EDT [facility] Plasma 10/31/2024 6:40 AM EDT 10/31/2024 7:35 AM EDT [facility] Dada Horner [facility] BLOOD ORDERABLES Denisse l Result Performing Organization Address [facility] [place]/[facility] de Phone Number [facility] [address] [facility]. [address] * (ABNORMAL) Hepatic Function Panel (10/31/2024 6:40 AM EDT) Total Bilirubin 2.7(H) 0.0 - 1.5 mg/dL 10/31/2024 8:09 AM EDT [facility] Bilirubin, Direct 1.57(H) 0.00 - 0.40 mg/dL 10/31/2024 8:09 AM EDT [facility] AST 26 13 - 39 U/L 10/31/2024 8:09 AM EDT [facility] ALT 68(H) 7 - 52 U/L 10/31/2024 8:09 AM EDT [facility] Alkaline Phosphatase 112 36 - 125 U/L 10/31/2024 8:09 AM EDT [facility] Total Protein 4.7(L) 6.4 - 8.9 g/dL 10/31/2024 8:09 AM EDT [facility] Albumin 3.2(L) 3.5 - 5.7 g/dL 10/31/2024 8:09 AM EDT [facility] Bilirubin, Indirect 1.13(H) 0.00 - 1.10 mg/dL 10/31/2024 8:09 AM EDT [facility] Plasma 10/31/2024 6:40 AM EDT 10/31/2024 7:35 AM EDT us Beata Horner [facility] BLOOD ORDERABLES Denisse l Result [facility] [address] [place] [address], [facility] * (ABNORMAL) CBC (10/31/2024 6:40 AM EDT) WBC 6.0 3.8 - 10.8 10E3/uL 10/31/2024 8:05 AM EDT [facility] RBC 3.14(L) 4.20 - 5.80 10E6/uL 10/31/2024 8:05 AM EDT [facility] Hemoglobin 9.6(L) 13.2 - 17.1 g/dL 10/31/2024 8:05 AM EDT [facility] Hematocrit 27.5(L) 38.5 - 50.0 % 10/31/2024 8:05 AM EDT [facility] MCV 87.6 80.0 - 100.0 fL 10/31/2024 8:05 AM EDT [facility] MCH 30.7 27.0 - 33.0 pg 10/31/2024 8:05 AM EDT [facility] MCHC 35.0 32.0 - 36.0 g/dL 10/31/2024 8:05 AM EDT [facility] RDW 17.9(H) 11.0 - 15.0 % 10/31/2024 8:05 AM EDT [facility] Platelets 44(L) 140 - 400 10E3/uL 10/31/2024 8:05 AM EDT [facility] Comment: CNV Specimen checked for clots. None detected. MPV 8.9 7.5 - 11.5 fL 10/31/2024 8:05 AM EDT [facility] Whole Blood 10/31/2024 6:40 AM EDT 10/31/2024 7:34 AM EDT us Beata Horner [facility] BLOOD ORDERABLES Denisse l Result Performing Organization Address City/[facility]/ZIP Co de Phone Number [facility] [address] [facility]. [address] * (ABNORMAL) POC Glucose Monitoring Device (10/30/2024 9:01 PM EDT) POC Glucose Monitoring Device 144(H) 70 - 100 mg/dL 10/30/2024 9:02 PM EDT [facility] Blood 10/30/2024 9:01 PM EDT 10/30/2024 9:01 PM EDT us Semaj Mcnair III, MD POINT OF CARE TEST ORDERABLES Final Result Performing Organization Address [facility] Co de Phone Number [facility] [address] [facility]. [address] * (ABNORMAL) POC Glucose Monitoring Device (10/30/2024 5:37 PM EDT) POC Glucose Monitoring Device 124(H) 70 - 100 mg/dL 10/30/2024 5:47 PM EDT [facility] Blood 10/30/2024 5:37 PM EDT 10/30/2024 5:47 PM EDT us Semaj Mcnair III, MD POINT OF CARE TEST ORDERABLES Final Result Performing Organization Address City/[facility]/ZIP Co de Phone Number [facility] [address] [facility]. [address] * (ABNORMAL) POC Glucose Monitoring Device (10/30/2024 7:26 AM EDT) POC Glucose Monitoring Device 150(H) 70 - 100 mg/dL 10/30/2024 7:27 AM EDT [facility] Blood 10/30/2024 7:26 AM EDT 10/30/2024 7:27 AM EDT Semaj Mcnair III, MD POINT OF CARE TEST ORDERABLES Final Result Performing Organization Address [facility] Co de Phone Number [facility] [address] [facility]. [address] * Tacrolimus level (10/30/2024 7:13 AM EDT) Tacrolimus (LC-MS) 9.5 3.0 - 15.0 ng/mL 10/30/2024 2:53 PM EDT [facility] Comment:Performed via liquid chromatography tandem mass spectrometry. Detection limit: 1 ng/mL. Individual target concentrations may vary due to target organ and time after transplant. This test has been developed and its performance characteristics determined by [facility] which is certified under the Clinical [...] EDT 10/30/2024 7:26 AM EDT Mikhail Abi [facility] BLOOD ORDERABLES Final Re sult Performing Organization Address [facility] Co de Phone Number [facility] [address] [facility]. [address] * ECG 12-lead (MUSE) (10/30/2024 6:51 AM EDT) 10/30/2024 6:51 AM EDT Narrative MUSE - 11/01/2024 9:21 AM EDT Ventricular Rate: 92 BPM Atrial Rate: 92 BPM P-R Interval: 174 ms QRS Duration: 96 ms QT: 376 ms QTc: 464 ms P [place]: 54 degrees R [place]: -24 degrees T [place]: 11 degrees Diagnosis Line: NORMAL SINUS RHYTHM ^ NORMAL ECG ^ ^ Confirmed by MD JOE, OTIS ([id number]) on 11/01/2024 9:21:09 AM Priti Geiger [employer] ECG ORDERABLES Final Result MUSE * (ABNORMAL) Renal Function Panel w/EGFR (10/30/2024 5:41 AM EDT) Sodium 140 133 - 146 mmol/L 10/30/2024 6:18 AM EDT [facility] Potassium 3.8 3.5 - 5.3 mmol/L 10/30/2024 6:18 AM EDT [facility] Chloride 111(H) 98 - 110 mmol/L 10/30/2024 6:18 AM EDT [facility] CO2 17(L) 21 - 33 mmol/L 10/30/2024 6:18 AM EDT [facility] Anion Gap 12 3 - 16 mmol/L 10/30/2024 6:18 AM EDT [facility] BUN 62(H) 7 - 25 mg/dL 10/30/2024 6:18 AM EDT [facility] Creatinine 1.96(H) 0.60 - 1.30 mg/dL 10/30/2024 6:18 AM EDT [facility] Glucose 116(H) 70 - 100 mg/dL 10/30/2024 6:18 AM EDT [facility] Calcium 9.0 8.6 - 10.3 mg/dL 10/30/2024 6:18 AM EDT [facility] Phosphorus 4.6 2.1 - 4.7 mg/dL 10/30/2024 6:18 AM EDT [facility] Albumin 3.2(L) 3.5 - 5.7 g/dL 10/30/2024 6:18 AM EDT [facility] Osmolality, Calculated 309(H) 278 - 305 mOsm/kg 10/30/2024 6:18 AM EDT [facility] EGFR 43 10/30/2024 6:18 AM EDT [facility] Comment:As of 2021, the estimated GFR [...] 5:41 AM EDT 10/30/2024 5:47 AM EDT Wintegraer Evens [facility] BLOOD ORDERABLES Denisse l Result [facility] [address] [facility]. [address] * Magnesium (10/30/2024 5:41 AM EDT) Magnesium 2.2 1.5 - 2.5 mg/dL 10/30/2024 6:18 AM EDT [facility] Plasma 10/30/2024 5:41 AM EDT 10/30/2024 5:47 AM EDT [facility] BLOOD ORDERABLES Denisse l Result Performing Organization Address [facility]/ZIP Co de Phone Number [facility] [address] [facility]. [address] * (ABNORMAL) Hepatic Function Panel (10/30/2024 5:41 AM EDT) Total Bilirubin 3.6(H) 0.0 - 1.5 mg/dL 10/30/2024 6:18 AM EDT [facility] Bilirubin, Direct 1.95(H) 0.00 - 0.40 mg/dL 10/30/2024 6:18 AM EDT [facility] AST 33 13 - 39 U/L 10/30/2024 6:18 AM EDT [facility] ALT 71(H) 7 - 52 U/L 10/30/2024 6:18 AM EDT [facility] Alkaline Phosphatase 80 36 - 125 U/L 10/30/2024 6:18 AM EDT [facility] Total Protein 4.8(L) 6.4 - 8.9 g/dL 10/30/2024 6:18 AM EDT [facility] Albumin 3.2(L) 3.5 - 5.7 g/dL 10/30/2024 6:18 AM EDT [facility] Bilirubin, Indirect 1.65(H) 0.00 - 1.10 mg/dL 10/30/2024 6:18 AM EDT [facility] Plasma 10/30/2024 5:41 AM EDT 10/30/2024 5:47 AM EDT us Beata Horner [employer] LAB BLOOD ORDERABLES Denisse valle Result [facility] [address] [place] [address], [facility] * (ABNORMAL) CBC (10/30/2024 5:41 AM EDT) WBC 8.1 3.8 - 10.8 10E3/uL 10/30/2024 8:06 AM EDT [facility] RBC 3.29(L) 4.20 - 5.80 10E6/uL 10/30/2024 8:06 AM EDT [facility] Hemoglobin 10.1(L) 13.2 - 17.1 g/dL 10/30/2024 8:06 AM EDT [facility] Hematocrit 28.8(L) 38.5 - 50.0 % 10/30/2024 8:06 AM EDT [facility] MCV 87.6 80.0 - 100.0 fL 10/30/2024 8:06 AM EDT [facility] MCH 30.6 27.0 - 33.0 pg 10/30/2024 8:06 AM EDT [facility] MCHC 34.9 32.0 - 36.0 g/dL 10/30/2024 8:06 AM EDT [facility] RDW 18.1(H) 11.0 - 15.0 % 10/30/2024 8:06 AM EDT [facility] Platelets 44(L) 140 - 400 10E3/uL 10/30/2024 8:06 AM EDT [facility] Comment: CNV Specimen checked for clots. None detected. MPV 8.3 7.5 - 11.5 fL 10/30/2024 8:06 AM EDT [facility] Whole Blood 10/30/2024 5:41 AM EDT 10/30/2024 5:50 AM EDT Beata Horner [facility] BLOOD ORDERABLES Denisse l Result [facility] [address] [facility]. [address] * (ABNORMAL) POC Glucose Monitoring Device (10/29/2024 10:18 PM EDT) POC Glucose Monitoring Device 140(H) 70 - 100 mg/dL 10/29/2024 10:18 PM EDT [facility] Blood 10/29/2024 10:1 8 PM EDT 10/29/2024 10:18 PM EDT Semaj Mcnair III, MD POINT OF CARE TEST ORDERABLES Final Result Performing Organization Address [facility] Co de Phone Number [facility] [address] [facility]. [address] * (ABNORMAL) POC Glucose Monitoring Device (10/29/2024 6:42 PM EDT) POC Glucose Monitoring Device 152(H) 70 - 100 mg/dL 10/29/2024 6:43 PM EDT [facility] Blood 10/29/2024 6:42 PM EDT 10/29/2024 6:43 PM EDT Semaj Mcnair III, MD POINT OF CARE TEST ORDERABLES Final Result Performing Organization Address City/[facility]/ZIP Co de Phone Number [facility] [address] [facility]. [address] * (ABNORMAL) POC Glucose Monitoring Device (10/29/2024 11:35 AM EDT) [facility] POC Glucose Monitoring Device 130(H) 70 - 100 mg/dL 10/29/2024 11:36 AM EDT [facility] Blood 10/29/2024 11:3 5 AM EDT 10/29/2024 11:36 AM EDT Semaj Mcnair III, MD POINT OF CARE TEST ORDERABLES Final Result Performing Organization Address City/[facility] Co de Phone Number [facility] [address] * ECG 12 lead (MUSE) (10/29/2024 9:34 AM EDT) 10/29/2024 9:34 AM EDT Narrative MUSE - 10/29/2024 10:34 PM EDT Ventricular Rate: 97 BPM Atrial Rate: 97 BPM P-R Interval: 186 ms QRS Duration: 104 ms QT: 382 ms QTc: 485 ms P [place]: 54 degrees R [place]: -21 degrees T [place]: 1 degrees Diagnosis Line: NORMAL SINUS RHYTHM ^ NORMAL ECG ^ Confirmed by JORGE MACIAS ([id number]) on 10/29/2024 10:34:50 PM Afshan Bear MD ECG ORDERABLES Final Result Performing Organization Address [facility] de Phone Number MUSE * Tacrolimus level (10/29/2024 8:08 AM EDT) [facility] Tacrolimus (LC-MS) 10.4 3.0 - 15.0 ng/mL 10/29/2024 2:07 PM EDT [facility] Comment:Performed via liquid chromatography tandem mass [...] EDT 10/29/2024 8:21 AM EDT Priti Geiger [employer] LAB BLOOD ORDERABLES Final Re sult Performing Organization Address City/[facility]/ZIP Co de Phone Number [facility] [address] * Prepare RBC, leukoreduced, 1 Units (10/29/2024 6:16 AM EDT) Product Code M8231T17 [facility]LL Unit Number [id number] [facility] Dispense Status Presumed Transfused_PT HCLL Blood Expiration Date [id number] HCLL Coding System [id number] [facility] Blood Bank Product Shay Plata MD BLOOD BANK PRODUCT O RDERABLES Final Result Performing Organization Address [facility] Co de Phone Number HCLL * Prepare RBC, leukoreduced, 1 Units (10/29/2024 6:15 AM EDT) Product Code K9636O72 [facility] Unit Number [id number] [facility]LL Dispense Status Presumed Transfused_PT [facility]LL Blood Expiration Date [id number] HCLL Coding System [id number] [facility]LL Blood Bank Product Carlos Marks MD BLOOD BANK PRODUCT ORDERABL ES Final Result Performing Organization Address [facility] Co de Phone Number HC[facility] * Prepare RBC, leukoreduced, 1 Units (10/29/2024 6:15 AM EDT) Product Code [id number] [facility] Unit Number [id number] [facility]LL Dispense Status Presumed Transfused_PT [facility]LL Blood Expiration Date [id number] HCLL Coding System [id number] [facility] Blood Bank Product John Moreon MD BLOOD BANK PRODUCT ORDERABLE S Final Result HC[facility] * (ABNORMAL) Renal Function Panel w/EGFR (10/29/2024 5:07 AM EDT) Sodium 144 133 - 146 mmol/L 10/29/2024 5:49 AM EDT [facility] Potassium 3.8 3.5 - 5.3 mmol/L 10/29/2024 5:49 AM EDT [facility] Chloride 113(H) 98 - 110 mmol/L 10/29/2024 5:49 AM EDT [facility] CO2 17(L) 21 - 33 mmol/L 10/29/2024 5:49 AM EDT [facility] Anion Gap 14 3 - 16 mmol/L 10/29/2024 5:49 AM EDT [facility] BUN 57(H) 7 - 25 mg/dL 10/29/2024 5:49 AM EDT [facility] Creatinine 1.93(H) 0.60 - 1.30 mg/dL 10/29/2024 5:49 AM EDT [facility] Glucose 110(H) 70 - 100 mg/dL 10/29/2024 5:49 AM EDT [facility] Calcium 9.3 8.6 - 10.3 mg/dL 10/29/2024 5:49 AM EDT [facility] Phosphorus 4.8(H) 2.1 - 4.7 mg/dL 10/29/2024 5:49 AM EDT [facility] Albumin 3.5 3.5 - 5.7 g/dL 10/29/2024 5:49 AM EDT [facility] Osmolality, Calculated 314(H) 278 - 305 mOsm/kg 10/29/2024 5:49 AM EDT [facility] EGFR 44 10/29/2024 5:49 AM EDT [facility] Comment:As of 2021, the estimated GFR [...] 10/29/2024 5:13 AM EDT Beata Garland Evens [facility] BLOOD ORDERABLES Denisse l Result Performing Organization Address City/[facility]/ZIP Co de Phone Number [facility] [address] [place] [address]. [address] * Magnesium (10/29/2024 5:07 AM EDT) Magnesium 2.1 1.5 - 2.5 mg/dL 10/29/2024 5:49 AM EDT [facility] Plasma 10/29/2024 5:07 AM EDT 10/29/2024 5:13 AM EDT [facility] BLOOD ORDERABLES Denisse l Result Performing Organization Address [facility]/ZIP Co de Phone Number [facility] [address] [place] [address]. [address] * (ABNORMAL) Hepatic Function Panel (10/29/2024 5:07 AM EDT) Total Bilirubin 4.2(H) 0.0 - 1.5 mg/dL 10/29/2024 5:49 AM EDT [facility] Bilirubin, Direct 2.85(H) 0.00 - 0.40 mg/dL 10/29/2024 5:49 AM EDT [facility] AST 31 13 - 39 U/L 10/29/2024 5:49 AM EDT [facility] ALT 88(H) 7 - 52 U/L 10/29/2024 5:49 AM EDT [facility] Alkaline Phosphatase 51 36 - 125 U/L 10/29/2024 5:49 AM EDT [facility] Total Protein 5.2(L) 6.4 - 8.9 g/dL 10/29/2024 5:49 AM EDT [facility] Albumin 3.5 3.5 - 5.7 g/dL 10/29/2024 5:49 AM EDT [facility] Bilirubin, Indirect 1.35(H) 0.00 - 1.10 mg/dL 10/29/2024 5:49 AM EDT [facility] Plasma 10/29/2024 5:07 AM EDT 10/29/2024 5:13 AM EDT Beata Horner [facility] BLOOD ORDERABLES Denisse valle Result [facility] [address] [place] [address], [facility] * (ABNORMAL) CBC (10/29/2024 5:07 AM EDT) WBC 7.8 3.8 - 10.8 10E3/uL 10/29/2024 5:38 AM EDT [facility] RBC 3.05(L) 4.20 - 5.80 10E6/uL 10/29/2024 5:38 AM EDT [facility] Hemoglobin 9.0(L) 13.2 - 17.1 g/dL 10/29/2024 5:38 AM EDT [facility] Hematocrit 26.7(L) 38.5 - 50.0 % 10/29/2024 5:38 AM EDT [facility] MCV 87.4 80.0 - 100.0 fL 10/29/2024 5:38 AM EDT [facility] MCH 29.7 27.0 - 33.0 pg 10/29/2024 5:38 AM EDT [facility] MCHC 33.9 32.0 - 36.0 g/dL 10/29/2024 5:38 AM EDT [facility] RDW 18.3(H) 11.0 - 15.0 % 10/29/2024 5:38 AM EDT [facility] Platelets 41(L) 140 - 400 10E3/uL 10/29/2024 5:38 AM EDT [facility] Comment: CNV Specimen checked for clots. None detected. MPV 7.5 7.5 - 11.5 fL 10/29/2024 5:38 AM EDT [facility] Whole Blood 10/29/2024 5:07 AM EDT 10/29/2024 5:13 AM EDT Beata Horner [facility] BLOOD ORDERABLES Denisse valle Result [facility] [address] [place] [address], [facility] * (ABNORMAL) TEG-Bypass/ECMO/Liver HN (Factor function, Platelet/Fibrin Clot Strength w/Clot Breakdown, Heparinase In All Channels) (10/29/2024 5:07 AM EDT) Citrated Kaolin Reaction Time (TEGECMOLIVER) 8.9 4.6 - 9.1 minutes 10/29/2024 7:04 AM EDT [facility] Citrated Kaolin W/Heparinase Reaction Time (TEGECMOLIVER) 7.4 4.3 - 8.3 minutes 10/29/2024 7:04 AM EDT [facility] Citrated Kaolin Maximum Amplitude (TEGECMOLIVER) 52.9 52.0 - 69.0 mm 10/29/2024 7:04 AM EDT [facility] Citrated Functional Fibrinogen W/Heparinase Maximum Amplitude(TEGEC MOLIVER) 20.7 15.0 - 34.0 mm 10/29/2024 7:04 AM EDT [facility] Citrated Rapid Teg W/Heparinase Maximum Amplitude (TEGECMOLIVER) 49.7(L) 53.0 - 69.0 mm 10/29/2024 7:04 AM EDT [facility] Citrated Kaolin w/Heparinase Percent Lysis (TEGECMOLIVER) 0.0 0.0 - 3.2 % 10/29/2024 7:04 AM EDT [facility] Whole Blood (Citrate) 10/29/2024 5:07 AM EDT 10/29/2024 5:10 AM EDT Kemar Sahni MD LAB BLOOD ORDERABLES Final Result [facility] [address] * (ABNORMAL) TEG-Bypass/ECMO/Liver HN (Factor function, Platelet/Fibrin Clot Strength w/Clot Breakdown, Heparinase In All Channels) (10/28/2024 11:55 PM EDT) [facility] Citrated Kaolin Reaction Time (TEGECMOLIVER) 8.6 4.6 - 9.1 minutes 10/29/2024 2:01 AM EDT [facility] Citrated Kaolin W/Heparinase Reaction Time (TEGECMOLIVER) 8.7(H) 4.3 - 8.3 minutes 10/29/2024 2:01 AM EDT [facility] Citrated Kaolin Maximum Amplitude (TEGECMOLIVER) 47.9(L) 52.0 - 69.0 mm 10/29/2024 2:01 AM EDT [facility] Citrated Functional Fibrinogen W/Heparinase Maximum Amplitude(TEGEC MOLIVER) 22.0 15.0 - 34.0 mm 10/29/2024 2:01 AM EDT [facility] Citrated Rapid Teg W/Heparinase Maximum Amplitude (TEGECMOLIVER) 45.9(L) 53.0 - 69.0 mm 10/29/2024 2:01 AM EDT [facility] Citrated Kaolin w/Heparinase Percent Lysis (TEGECMOLIVER) 0.0 0.0 - 3.2 % 10/29/2024 2:01 AM EDT [facility] Whole Blood (Citrate) 10/28/2024 11:55 PM EDT 10/28/2024 11:58 PM EDT Kemar Sahni MD LAB BLOOD ORDERABLES Final Result [facility] [address] * (ABNORMAL) CBC, STAT (10/28/2024 8:04 PM EDT) WBC 3.9 3.8 - 10.8 10E3/uL 10/28/2024 8:36 PM EDT [facility] RBC 2.66(L) 4.20 - 5.80 10E6/uL 10/28/2024 8:36 PM EDT [facility] Hemoglobin 8.0(L) 13.2 - 17.1 g/dL 10/28/2024 8:36 PM EDT [facility] Hematocrit 23.0(L) 38.5 - 50.0 % 10/28/2024 8:36 PM EDT [facility] MCV 86.4 80.0 - 100.0 fL 10/28/2024 8:36 PM EDT [facility] MCH 29.9 27.0 - 33.0 pg 10/28/2024 8:36 PM EDT [facility] MCHC 34.6 32.0 - 36.0 g/dL 10/28/2024 8:36 PM EDT [facility] RDW 18.6(H) 11.0 - 15.0 % 10/28/2024 8:36 PM EDT [facility] Platelets 29(L) 140 - 400 10E3/uL 10/28/2024 8:36 PM EDT [facility] Comment: CNV Specimen checked for clots. None detected. MPV 7.8 7.5 - 11.5 fL 10/28/2024 8:36 PM EDT [facility] Whole Blood 10/28/2024 8:04 PM EDT 10/28/2024 8:14 PM EDT us Carlos Marks MD LAB BLOOD ORDERABLES Final Result [facility] [address] [place] [address], [facility] * (ABNORMAL) POC Glucose Monitoring Device (10/28/2024 8:03 PM EDT) Pathologist [facility] POC Glucose Monitoring Device 122(H) 70 - 100 mg/dL 10/28/2024 8:04 PM EDT [facility] Blood 10/28/2024 8:03 PM EDT 10/28/2024 8:04 PM EDT Semaj Mcnair III, MD POINT OF CARE TEST ORDERABLES Final Result [facility] [address] * (ABNORMAL) TEG-Bypass/ECMO/Liver HN (Factor function, Platelet/Fibrin Clot Strength w/Clot Breakdown, Heparinase In All Channels) (10/28/2024 6:39 PM EDT) [facility] Citrated Kaolin Reaction Time (TEGECMOLIVER) 9.0 4.6 - 9.1 minutes 10/28/2024 7:50 PM EDT [facility] Citrated Kaolin W/Heparinase Reaction Time (TEGECMOLIVER) 8.3 4.3 - 8.3 minutes 10/28/2024 7:50 PM EDT [facility] Citrated Kaolin Maximum Amplitude (TEGECMOLIVER) 47.6(L) 52.0 - 69.0 mm 10/28/2024 7:50 PM EDT [facility] Citrated Functional Fibrinogen W/Heparinase Maximum Amplitude(TEGEC MOLIVER) 20.4 15.0 - 34.0 mm 10/28/2024 7:50 PM EDT [facility] Citrated Rapid Teg W/Heparinase Maximum Amplitude (TEGECMOLIVER) 44.0(L) 53.0 - 69.0 mm 10/28/2024 7:50 PM EDT [facility] Citrated Kaolin w/Heparinase Percent Lysis (TEGECMOLIVER) 0.0 0.0 - 3.2 % 10/28/2024 7:50 PM EDT [facility] Whole Blood (Citrate) 10/28/2024 6:39 PM EDT 10/28/2024 6:42 PM EDT Kemar Sahni MD LAB BLOOD ORDERABLES Final Result [facility] [address] * (ABNORMAL) POC Glucose Monitoring Device (10/28/2024 5:31 PM EDT) POC Glucose Monitoring Device 130(H) 70 - 100 mg/dL 10/28/2024 5:31 PM EDT [facility] Blood 10/28/2024 5:31 PM EDT 10/28/2024 5:31 PM EDT us Semaj Mcnair III, MD POINT OF CARE TEST ORDERABLES Final Result Performing Organization Address City/[facility] Co de Phone Number [facility] [address] * Transfuse RBC Transfusion Rate: Per dept routine (10/28/2024 5:23 PM EDT) us Shay Plata MD NURSING TREATMENT OR DERABLES - BLOOD ADMIN Final Result Performing Organization Address [facility] Co de Phone Number EXTERNAL * Transfuse RBC Transfusion Rate: Per dept routine, 1 Units (10/28/2024 5:23 PM EDT) us Shay Plata MD NURSING TREATMENT OR DERABLES - BLOOD ADMIN Final Result Performing Organization Address [facility] de Phone Number EXTERNAL * [...] EXAM: US ABDOMEN LIMITED EXAM: US DUPLEX [id number] COMPLETE INDICATION: Post-op liver transplant DATE: 10/28/2024 [...] retrohepatic inferior vena cava is patent. The elem right kidney is partially visualized. A prominent [...] EXAM: US ABDOMEN LIMITED EXAM: US DUPLEX [id number] COMPLETE INDICATION: Post-op liver transplant DATE: 10/28/2024 [...] retrohepatic inferior vena cava is patent. The elem right kidney is partially visualized. A prominent [...] 4:42 PM EDT us Shay Plata MD [facility] [place] ORDERABLES Fi nal Result * US Duplex [id number] (10/28/2024 4:23 PM EDT) Anatomical Region [...] EXAM: US ABDOMEN LIMITED EXAM: US DUPLEX [id number] COMPLETE INDICATION: Post-op liver transplant DATE: 10/28/2024 [...] retrohepatic inferior vena cava is patent. The elem right kidney is partially visualized. A prominent [...] EXAM: US ABDOMEN LIMITED EXAM: US DUPLEX [id number] COMPLETE INDICATION: Post-op liver transplant DATE: 10/28/2024 [...] retrohepatic inferior vena cava is patent. The elem right kidney is partially visualized. A prominent [...] 4:42 PM EDT us Shay Plata MD [facility] [place]LES Fi nal Result * (ABNORMAL) CBC, STAT (10/28/2024 2:49 PM EDT) [facility] Signature WBC 4.0 3.8 - 10.8 10E3/uL 10/28/2024 3:07 PM EDT [facility] RBC 2.44(L) 4.20 - 5.80 10E6/uL 10/28/2024 3:07 PM EDT [facility] Hemoglobin 7.5(L) 13.2 - 17.1 g/dL 10/28/2024 3:07 PM EDT [facility] Hematocrit 21.4(L) 38.5 - 50.0 % 10/28/2024 3:07 PM EDT [facility] MCV 87.6 80.0 - 100.0 fL 10/28/2024 3:07 PM EDT [facility] MCH 30.6 27.0 - 33.0 pg 10/28/2024 3:07 PM EDT [facility] MCHC 34.9 32.0 - 36.0 g/dL 10/28/2024 3:07 PM EDT [facility] RDW 18.4(H) 11.0 - 15.0 % 10/28/2024 3:07 PM EDT [facility] Platelets 30(L) 140 - 400 10E3/uL 10/28/2024 3:07 PM EDT [facility] Comment: CNV Specimen checked for clots. None detected. MPV 7.7 7.5 - 11.5 fL 10/28/2024 3:07 PM EDT [facility] Whole Blood 10/28/2024 2:49 PM EDT 10/28/2024 2:53 PM EDT us Carlos Marks MD LAB BLOOD ORDERABLES Final Result Performing Organization Address City/State/[facility] Co de Phone Number [facility] [address] * ECG 12 lead (MUSE) (10/28/2024 1:22 PM EDT) 10/28/2024 1:22 PM EDT Narrative MUSE - 10/29/2024 10:34 PM EDT Ventricular Rate: 104 BPM Atrial Rate: 104 BPM P-R Interval: 172 ms QRS Duration: 90 ms QT: 354 ms QTc: 465 ms P [place]: 58 degrees R [place]: -19 degrees T [place]: 38 degrees Diagnosis Line: SINUS TACHYCARDIA ^ OTHERWISE NORMAL ECG ^ ^ Confirmed by JORGE MACIAS ([id number]) on 10/29/2024 10:34:22 PM us Hillary Fernandes PharmD ECG ORDERABLES Final Res ult Performing Organization Address City/[facility]/ZIP Co de Phone Number MUSE * (ABNORMAL) POC Glucose Monitoring Device (10/28/2024 12:54 PM EDT) POC Glucose Monitoring Device 119(H) 70 - 100 mg/dL 10/28/2024 12:55 PM EDT [facility] Blood 10/28/2024 12:5 4 PM EDT 10/28/2024 12:55 PM EDT us Semaj Mcnair III, MD POINT OF CARE TEST ORDERABLES Final Result Performing Organization Address [facility] Co de Phone Number [facility] [address] * Transfuse RBC Transfusion Rate: Per dept routine (10/28/2024 12:31 PM EDT) us Carlos Marks MD NURSING TREATMENT ORDERABLE S - BLOOD ADMIN Final Result Performing Organization Address City/[facility] Co de Phone Number EXTERNAL * Transfuse RBC Transfusion Rate: Per dept routine, 1 Units (10/28/2024 12:31 PM EDT) Carlos Marks MD NURSING TREATMENT ORDERABLE S - BLOOD ADMIN Final Result Performing Organization Address City/[facility] Co de Phone Number EXTERNAL * Protime-INR, STAT (10/28/2024 11:09 AM EDT) Protime 14.3 12.1 - 15.1 seconds 10/28/2024 11:29 AM EDT [facility] INR 1.1 0.9 - 1.1 10/28/2024 11:29 AM EDT [facility] Comment: RECOMMENDED THERAPEUTIC RANGES USING INR : Stable oral anticoagulant therapy: 2.0 - 3.0 Mechanical prosthetic heart valve: 2.5 - 3.5 Recurrent acute myocardial infarction: 2.5 - 3.5 Plasma 10/28/2024 11:0 9 AM EDT 10/28/2024 11:16 AM EDT us Carlos Marks MD LAB BLOOD ORDERABLES Final Result Performing Organization Address [facility] Co de Phone Number [facility] [address] [facility]. [address] * (ABNORMAL) Lactic Acid, STAT (10/28/2024 11:09 AM EDT) Lactate 0.3(L) 0.5 - 2.2 mmol/L 10/28/2024 11:37 AM EDT [facility] Plasma 10/28/2024 11:0 9 AM EDT 10/28/2024 11:15 AM EDT us Carlos Marks MD LAB BLOOD ORDERABLES Final Result Performing Organization Address [facility] Co de Phone Number [facility] [address] [facility]. [address] * Magnesium, STAT (10/28/2024 11:09 AM EDT) Magnesium 2.1 1.5 - 2.5 mg/dL 10/28/2024 11:47 AM EDT [facility] Plasma 10/28/2024 11:0 9 AM EDT 10/28/2024 11:16 AM EDT us Carlos Marks MD LAB BLOOD ORDERABLES Final Result Performing Organization Address [facility] Co de Phone Number [facility] [address] [place] [address]. [address] * (ABNORMAL) Renal Function Panel w/EGFR, STAT (10/28/2024 11:09 AM EDT) Sodium 144 133 - 146 mmol/L 10/28/2024 11:47 AM EDT [facility] Potassium 3.4(L) 3.5 - 5.3 mmol/L 10/28/2024 11:47 AM EDT [facility] Chloride 112(H) 98 - 110 mmol/L 10/28/2024 11:47 AM EDT [facility] CO2 22 21 - 33 mmol/L 10/28/2024 11:47 AM EDT [facility] Anion Gap 10 3 - 16 mmol/L 10/28/2024 11:47 AM EDT [facility] BUN 57(H) 7 - 25 mg/dL 10/28/2024 11:47 AM EDT [facility] Creatinine 2.01(H) 0.60 - 1.30 mg/dL 10/28/2024 11:47 AM EDT [facility] Glucose 108(H) 70 - 100 mg/dL 10/28/2024 11:47 AM EDT [facility] Calcium 8.8 8.6 - 10.3 mg/dL 10/28/2024 11:47 AM EDT [facility] Phosphorus 4.0 2.1 - 4.7 mg/dL 10/28/2024 11:47 AM EDT [facility] Albumin 3.3(L) 3.5 - 5.7 g/dL 10/28/2024 11:47 AM EDT [facility] Osmolality, Calculated 314(H) 278 - 305 mOsm/kg 10/28/2024 11:47 AM EDT [facility] EGFR 42 10/28/2024 11:47 AM EDT [facility] Comment:As of 2021, the estimated GFR [...] Marks MD LAB BLOOD ORDERABLES Final Result [facility] [address] * (ABNORMAL) TEG-Bypass/ECMO/Liver HN (Factor function, Platelet/Fibrin Clot Strength w/Clot Breakdown, Heparinase In All Channels) (10/28/2024 11:09 AM EDT) [facility] Citrated Kaolin Reaction Time (TEGECMOLIVER) 9.2(H) 4.6 - 9.1 minutes 10/28/2024 12:30 PM EDT [facility] Citrated Kaolin W/Heparinase Reaction Time (TEGECMOLIVER) 9.6(H) 4.3 - 8.3 minutes 10/28/2024 12:30 PM EDT [facility] Citrated Kaolin Maximum Amplitude (TEGECMOLIVER) 51.2(L) 52.0 - 69.0 mm 10/28/2024 12:30 PM EDT [facility] Citrated Functional Fibrinogen W/Heparinase Maximum Amplitude(TEGEC MOLIVER) 21.6 15.0 - 34.0 mm 10/28/2024 12:30 PM EDT [facility] Citrated Rapid Teg W/Heparinase Maximum Amplitude (TEGECMOLIVER) 49.3(L) 53.0 - 69.0 mm 10/28/2024 12:30 PM EDT [facility] Citrated Kaolin w/Heparinase Percent Lysis (TEGECMOLIVER) 0.0 0.0 - 3.2 % 10/28/2024 12:30 PM EDT [facility] Whole Blood (Citrate) 10/28/2024 11:09 AM EDT 10/28/2024 11:14 AM EDT Kemar Sahni MD LAB BLOOD ORDERABLES Final Result [facility] [address] * (ABNORMAL) CBC (10/28/2024 10:21 AM EDT) WBC 4.1 3.8 - 10.8 10E3/uL 10/28/2024 10:41 AM EDT [facility] RBC 2.30(L) 4.20 - 5.80 10E6/uL 10/28/2024 10:41 AM EDT [facility] Hemoglobin 7.1(L) 13.2 - 17.1 g/dL 10/28/2024 10:41 AM EDT [facility] Hematocrit 20.4(L) 38.5 - 50.0 % 10/28/2024 10:41 AM EDT [facility] MCV 88.5 80.0 - 100.0 fL 10/28/2024 10:41 AM EDT [facility] MCH 30.7 27.0 - 33.0 pg 10/28/2024 10:41 AM EDT [facility] MCHC 34.7 32.0 - 36.0 g/dL 10/28/2024 10:41 AM EDT [facility] RDW 18.7(H) 11.0 - 15.0 % 10/28/2024 10:41 AM EDT [facility] Platelets 37(L) 140 - 400 10E3/uL 10/28/2024 10:41 AM EDT [facility] Comment: CNV Specimen checked for clots. None detected. MPV 7.6 7.5 - 11.5 fL 10/28/2024 10:41 AM EDT [facility] Whole Blood 10/28/2024 10:2 1 AM EDT 10/28/2024 10:29 AM EDT us Carlos Marks MD LAB BLOOD ORDERABLES Final Result [facility] [address] [place] [address], [facility] * POC Glucose Monitoring Device (10/28/2024 9:07 AM EDT) POC Glucose Monitoring Device 97 70 - 100 mg/dL 10/28/2024 9:08 AM EDT [facility] Blood 10/28/2024 9:07 AM EDT 10/28/2024 9:08 AM EDT Semaj Mcnair III, MD POINT OF CARE TEST ORDERABLES Final Result Performing Organization Address [facility] Co de Phone Number [facility] [address] * (ABNORMAL) Tacrolimus level (10/28/2024 8:20 AM EDT) Tacrolimus (LC-MS) <1.0(L) 3.0 - 15.0 ng/mL 10/28/2024 2:02 PM EDT [facility] Comment:Performed via liquid chromatography tandem mass [...] EDT 10/28/2024 8:29 AM EDT Priti Geiger [facility] LAB BLOOD ORDERABLES Final Re sult Performing Organization Address City/[facility] Co de Phone Number [facility] [address] * (ABNORMAL) POC Glucose Monitoring Device (10/28/2024 8:10 AM EDT) POC Glucose Monitoring Device 102(H) 70 - 100 mg/dL 10/28/2024 8:11 AM EDT [facility] Blood 10/28/2024 8:10 AM EDT 10/28/2024 8:11 AM EDT Semaj Mcnair III, MD POINT OF CARE TEST ORDERABLES Final Result Performing Organization Address [facility] Co de Phone Number [facility] [address] [facility]. [address] * POC Glucose Monitoring Device (10/28/2024 6:17 AM EDT) POC Glucose Monitoring Device 100 70 - 100 mg/dL 10/28/2024 6:18 AM EDT [facility] Blood 10/28/2024 6:17 AM EDT 10/28/2024 6:18 AM EDT Semaj Mcnair III, MD POINT OF CARE TEST ORDERABLES Final Result Performing Organization Address [facility] de Phone Number [facility] [address] [facility]. [address] * Prepare Platelets, leukoreduced (10/28/2024 6:15 AM EDT) Product Code M5471C42 HCLL Unit Number [id number] HCLL Dispense Status Presumed Transfused_PT HCLL Blood Expiration Date HCLL Coding System LVIV598 HCLL Product Code I4481H55 HCLL Unit Number [id number] HCLL Dispense Status Presumed Transfused_PT HCLL Blood Expiration Date HCLL Coding System AIRY709 HCLL us Attending Provider Unknown BLOOD BANK PRODUCT OR DERABLES Final Result Performing Organization Address [facility] Co de Phone Number HCLL * Prepare Fresh Frozen Plasma (10/28/2024 6:15 AM EDT) Product Code I6933W32 HCLL Unit Number [id number] HCLL Dispense Status Released from Crossmatch_RE HCLL Blood Expiration Date HCLL Coding System MRKH376 HCLL Product Code S2660B73 HCLL Unit Number [id number] HCLL Dispense Status Presumed Transfused_PT HCLL Blood Expiration Date HCLL Coding System GEIW219 HCLL Product Code P1411Q01 HCLL Unit Number [id number] HCLL Dispense Status Released from Crossmatch_RE HCLL Blood Expiration Date HCLL Coding System GGNH569 HCLL Product Code P5502I58 HCLL Unit Number [id number] HCLL Dispense Status Presumed Transfused_PT HCLL Blood Expiration Date HCLL Coding System XIKK675 HCLL Product Code Z9418P73 HCLL Unit Number [id number] HCLL Dispense Status Released from Crossmatch_RE HCLL Blood Expiration Date [id number] HCLL Coding System WWGO450 HCLL Attending Provider Unknown BLOOD BANK PRODUCT OR DERABLES Final Result HCLL * Prepare RBC, leukoreduced (10/28/2024 6:15 AM EDT) Product Code A9775H42 HCLL Unit Number [id number] HCLL Dispense Status Released from Crossmatch_RE HCLL Blood Expiration Date HCLL Coding System VKNL291 HCLL Product Code E6478S84 HCLL Unit Number [id number] HCLL Dispense Status Presumed Transfused_PT HCLL Blood Expiration Date [id number] HCLL Coding System ABSX253 HCLL Product Code N7673H64 HCLL Unit Number [id number] HCLL Dispense Status Released from Crossmatch_RE HCLL Blood Expiration Date [id number] HCLL Coding System GAMS779 HCLL Product Code K2328C35 HCLL Unit Number [id number] HCLL Dispense Status Presumed Transfused_PT HCLL Blood Expiration Date HCLL Coding System LXDH432 HCLL Product Code W8584D34 HCLL Unit Number [id number] HCLL Dispense Status Released from Crossmatch_RE HCLL Blood Expiration Date HCLL Coding System DHAZ974 HCLL Attending Provider Unknown BLOOD BANK PRODUCT OR DERABLES Final Result Performing Organization Address [facility] Co de Phone Number HCLL * Prepare Platelets, leukoreduced, 1 Units (10/28/2024 6:15 AM EDT) Product Code P3790N56 HCLL Unit Number [id number] HCLL Dispense Status Presumed Transfused_PT HCLL Blood Expiration Date [id number] HCLL Coding System PVDO071 HCLL Blood Bank Product John Pina MD BLOOD BANK PRODUCT ORDERABLES F inal Result Performing Organization Address [facility] de Phone Number HCLL * Prepare Cryoprecipitate, 1 Units (10/28/2024 6:15 AM EDT) Product Code K0534J98 HCLL Unit Number [id number] HCLL Dispense Status Presumed Transfused_PT HCLL Blood Expiration Date HCLL Coding System HQPP413 HCLL Product Code G1632R19 HCLL Unit Number [id number] HCLL Dispense Status Presumed Transfused_PT HCLL Blood Expiration Date HCLL Coding System PAHW508 HCLL Blood Bank Product John Pina MD BLOOD BANK PRODUCT ORDERABLES F inal Result Performing Organization Address [facility] Co de Phone Number HCLL * Prepare Fresh Frozen Plasma, 1 Units (10/28/2024 6:15 AM EDT) Product Code C8842M25 HCLL Unit Number [id number] HCLL Dispense Status Presumed Transfused_PT HCLL Blood Expiration Date [id number] HCLL Coding System ANHN613 HCLL Blood Bank Product John Pina MD BLOOD BANK PRODUCT ORDERABLES F inal Result HCLL * Prepare Cryoprecipitate, 1 Units (10/28/2024 6:15 AM EDT) Product Code I1474P76 HCLL Unit Number [id number] HCLL Dispense Status Presumed Transfused_PT HCLL Blood Expiration Date HCLL Coding System JNOI680 HCLL Product Code D5535W66 HCLL Unit Number [id number] HCLL Dispense Status Presumed Transfused_PT HCLL Blood Expiration Date HCLL Coding System OWHX692 HCLL Product Code E8314A10 HCLL Unit Number [id number] HCLL Dispense Status Presumed Transfused_PT HCLL Blood Expiration Date HCLL Coding System QEUA554 HCLL Product Code K0643A70 HCLL Unit Number [id number] HCLL Dispense Status Presumed Transfused_PT HCLL Blood Expiration Date HCLL Coding System PMXS305 HCLL Blood Bank Product John Pina MD BLOOD BANK PRODUCT ORDERABLES F inal Result Performing Organization Address [facility] Co de Phone Number HCLL * (ABNORMAL) POC Glucose Monitoring Device (10/28/2024 4:55 AM EDT) POC Glucose Monitoring Device 104(H) 70 - 100 mg/dL 10/28/2024 4:57 AM EDT [facility] Blood 10/28/2024 4:55 AM EDT 10/28/2024 4:57 AM EDT Semaj Mcnair III, MD POINT OF CARE TEST ORDERABLES Final Result Performing Organization Address City/[facility]/ZIP Co de Phone Number [facility] [address] [place] [address], [facility] * TEG-Bypass/ECMO/Liver HN (Factor function, Platelet/Fibrin Clot Strength w/Clot Breakdown, Heparinase In All Channels) (10/28/2024 4:13 AM EDT) Citrated Kaolin Reaction Time (TEGECMOLIVER) 7.2 4.6 - 9.1 minutes 10/28/2024 5:38 AM EDT [facility] Citrated Kaolin W/Heparinase Reaction Time (TEGECMOLIVER) 7.8 4.3 - 8.3 minutes 10/28/2024 5:38 AM EDT [facility] Citrated Kaolin Maximum Amplitude (TEGECMOLIVER) 53.0 52.0 - 69.0 mm 10/28/2024 5:38 AM EDT [facility] Citrated Functional Fibrinogen W/Heparinase Maximum Amplitude(TEGEC MOLIVER) 21.4 15.0 - 34.0 mm 10/28/2024 5:38 AM EDT [facility] Citrated Rapid Teg W/Heparinase Maximum Amplitude (TEGECMOLIVER) 54.7 53.0 - 69.0 mm 10/28/2024 5:38 AM EDT [facility] Citrated Kaolin w/Heparinase Percent Lysis (TEGECMOLIVER) 0.0 0.0 - 3.2 % 10/28/2024 5:38 AM EDT [facility] Whole Blood (Citrate) 10/28/2024 4:13 AM EDT 10/28/2024 4:28 AM EDT Kemar Sahni MD LAB BLOOD ORDERABLES Final Result Performing Organization Address City/State/[facility] Co de Phone Number [facility] [address] * Protime-INR (10/28/2024 4:13 AM EDT) Protime 14.6 12.1 - 15.1 seconds 10/28/2024 4:53 AM EDT [facility] INR 1.1 0.9 - 1.1 10/28/2024 4:53 AM EDT [facility] Comment: RECOMMENDED THERAPEUTIC RANGES USING INR : Stable oral anticoagulant therapy: 2.0 - 3.0 Mechanical prosthetic heart valve: 2.5 - 3.5 Recurrent acute myocardial infarction: 2.5 - 3.5 Plasma 10/28/2024 4:13 AM EDT 10/28/2024 4:41 AM EDT Kemar Sahni MD LAB BLOOD ORDERABLES Final Result Performing Organization Address City/[facility]/ZIP Co de Phone Number [facility] [address] * Magnesium (10/28/2024 4:13 AM EDT) Magnesium 2.2 1.5 - 2.5 mg/dL 10/28/2024 5:15 AM EDT [facility] Plasma 10/28/2024 4:13 AM EDT 10/28/2024 4:41 AM EDT Kemar Sahni MD LAB BLOOD ORDERABLES Final Result Performing Organization Address [facility] de Phone Number [facility] [address] * (ABNORMAL) Hepatic Function Panel (10/28/2024 4:13 AM EDT) Total Bilirubin 2.3(H) 0.0 - 1.5 mg/dL 10/28/2024 5:15 AM EDT [facility] Bilirubin, Direct 1.67(H) 0.00 - 0.40 mg/dL 10/28/2024 5:15 AM EDT [facility] AST 44(H) 13 - 39 U/L 10/28/2024 5:15 AM EDT [facility] ALT 101(H) 7 - 52 U/L 10/28/2024 5:15 AM EDT [facility] Alkaline Phosphatase 26(L) 36 - 125 U/L 10/28/2024 5:15 AM EDT [facility] Total Protein 4.5(L) 6.4 - 8.9 g/dL 10/28/2024 5:15 AM EDT [facility] Albumin 3.1(L) 3.5 - 5.7 g/dL 10/28/2024 5:15 AM EDT [facility] Bilirubin, Indirect 0.63 0.00 - 1.10 mg/dL 10/28/2024 5:15 AM EDT [facility] Plasma 10/28/2024 4:13 AM EDT 10/28/2024 4:41 AM EDT Kemar Sahni MD LAB BLOOD ORDERABLES Final Result [facility] [address] [place], [place] [address] * (ABNORMAL) Renal Function Panel w/EGFR (10/28/2024 4:13 AM EDT) Sodium 142 133 - 146 mmol/L 10/28/2024 5:15 AM EDT [facility] Potassium 3.5 3.5 - 5.3 mmol/L 10/28/2024 5:15 AM EDT [facility] Chloride 111(H) 98 - 110 mmol/L 10/28/2024 5:15 AM EDT [facility] CO2 22 21 - 33 mmol/L 10/28/2024 5:15 AM EDT [facility] Anion Gap 9 3 - 16 mmol/L 10/28/2024 5:15 AM EDT [facility] BUN 58(H) 7 - 25 mg/dL 10/28/2024 5:15 AM EDT [facility] Creatinine 2.24(H) 0.60 - 1.30 mg/dL 10/28/2024 5:15 AM EDT [facility] Glucose 103(H) 70 - 100 mg/dL 10/28/2024 5:15 AM EDT [facility] Calcium 9.1 8.6 - 10.3 mg/dL 10/28/2024 5:15 AM EDT [facility] Phosphorus 4.8(H) 2.1 - 4.7 mg/dL 10/28/2024 5:15 AM EDT [facility] Albumin 3.1(L) 3.5 - 5.7 g/dL 10/28/2024 5:15 AM EDT [facility] Osmolality, Calculated 310(H) 278 - 305 mOsm/kg 10/28/2024 5:15 AM EDT [facility] EGFR 37 10/28/2024 5:15 AM EDT [facility] Comment:As of 2021, the estimated GFR [...] Sahni MD LAB BLOOD ORDERABLES Final Result [facility] [address] * (ABNORMAL) CBC (10/28/2024 4:13 AM EDT) WBC 4.5 3.8 - 10.8 10E3/uL 10/28/2024 5:09 AM EDT [facility] RBC 2.39(L) 4.20 - 5.80 10E6/uL 10/28/2024 5:09 AM EDT [facility] Hemoglobin 7.3(L) 13.2 - 17.1 g/dL 10/28/2024 5:09 AM EDT [facility] Hematocrit 21.0(L) 38.5 - 50.0 % 10/28/2024 5:09 AM EDT [facility] MCV 87.8 80.0 - 100.0 fL 10/28/2024 5:09 AM EDT [facility] MCH 30.5 27.0 - 33.0 pg 10/28/2024 5:09 AM EDT [facility] MCHC 34.7 32.0 - 36.0 g/dL 10/28/2024 5:09 AM EDT [facility] RDW 18.7(H) 11.0 - 15.0 % 10/28/2024 5:09 AM EDT [facility] Platelets 38(L) 140 - 400 10E3/uL 10/28/2024 5:09 AM EDT [facility] Comment: CNV Specimen checked for clots. None detected. MPV 7.6 7.5 - 11.5 fL 10/28/2024 5:09 AM EDT [facility] Whole Blood 10/28/2024 4:13 AM EDT 10/28/2024 4:41 AM EDT Kemar Sahni MD LAB BLOOD ORDERABLES Final Result Performing Organization Address [facility] de Phone Number [facility] [address] * (ABNORMAL) POC Glucose Monitoring Device (10/28/2024 4:04 AM EDT) POC Glucose Monitoring Device 103(H) 70 - 100 mg/dL 10/28/2024 4:05 AM EDT [facility] Blood 10/28/2024 4:04 AM EDT 10/28/2024 4:05 AM EDT Semaj Mcnair III, MD POINT OF CARE TEST ORDERABLES Final Result Performing Organization Address City/State/[facility] Co de Phone Number [facility] [address] * (ABNORMAL) POC Glucose Monitoring Device (10/28/2024 3:00 AM EDT) POC Glucose Monitoring Device 106(H) 70 - 100 mg/dL 10/28/2024 3:01 AM EDT [facility] Blood 10/28/2024 3:00 AM EDT 10/28/2024 3:01 AM EDT Semaj Mcnair III, MD POINT OF CARE TEST ORDERABLES Final Result [facility] [address] [facility]. [address] * (ABNORMAL) POC Glucose Monitoring Device (10/28/2024 2:32 AM EDT) POC Glucose Monitoring Device 109(H) 70 - 100 mg/dL 10/28/2024 2:33 AM EDT [facility] Blood 10/28/2024 2:32 AM EDT 10/28/2024 2:33 AM EDT Semaj Mcnair III, MD POINT OF CARE TEST ORDERABLES Final Result Performing Organization Address City/State/[facility] Co de Phone Number [facility] [address] [facility]. [address] * (ABNORMAL) POC Glucose Monitoring Device (10/28/2024 2:14 AM EDT) POC Glucose Monitoring Device 115(H) 70 - 100 mg/dL 10/28/2024 2:15 AM EDT [facility] Blood 10/28/2024 2:14 AM EDT 10/28/2024 2:15 AM EDT us Semaj Mcnair III, MD POINT OF CARE TEST ORDERABLES Final Result [facility] [address] [facility]. [address] * (ABNORMAL) POC Glucose Monitoring Device (10/28/2024 2:03 AM EDT) POC Glucose Monitoring Device 101(H) 70 - 100 mg/dL 10/28/2024 2:04 AM EDT [facility] Blood 10/28/2024 2:03 AM EDT 10/28/2024 2:04 AM EDT us Semaj Mcnair III, MD POINT OF CARE TEST ORDERABLES Final Result [facility] [address] [place] [address], [facility] * Transfuse RBC Transfusion Rate: Per dept routine (10/28/2024 1:51 AM EDT) John Moreno MD NURSING TREATMENT ORDERABLES - BLOOD ADMIN Final Result EXTERNAL * Transfuse RBC Transfusion Rate: Per dept routine, 1 Units (10/28/2024 1:51 AM EDT) John Moreno MD NURSING TREATMENT ORDERABLES - BLOOD ADMIN Final Result Performing Organization Address City/[facility] Co de Phone Number EXTERNAL * (ABNORMAL) TEG-Bypass/ECMO/Liver HN (Factor function, Platelet/Fibrin Clot Strength w/Clot Breakdown, Heparinase In All Channels) (10/28/2024 12:05 AM EDT) [facility] Citrated Kaolin Reaction Time (TEGECMOLIVER) 7.5 4.6 - 9.1 minutes 10/28/2024 1:22 AM EDT [facility] Citrated Kaolin W/Heparinase Reaction Time (TEGECMOLIVER) 7.7 4.3 - 8.3 minutes 10/28/2024 1:22 AM EDT [facility] Citrated Kaolin Maximum Amplitude (TEGECMOLIVER) 54.4 52.0 - 69.0 mm 10/28/2024 1:22 AM EDT [facility] Citrated Functional Fibrinogen W/Heparinase Maximum Amplitude(TEGEC MOLIVER) 20.4 15.0 - 34.0 mm 10/28/2024 1:22 AM EDT [facility] Citrated Rapid Teg W/Heparinase Maximum Amplitude (TEGECMOLIVER) 51.0(L) 53.0 - 69.0 mm 10/28/2024 1:22 AM EDT [facility] Citrated Kaolin w/Heparinase Percent Lysis (TEGECMOLIVER) 0.0 0.0 - 3.2 % 10/28/2024 1:22 AM EDT [facility] Whole Blood (Citrate) 10/28/2024 12:05 AM EDT 10/28/2024 12:09 AM EDT Kemar Sahni MD LAB BLOOD ORDERABLES Final Result Performing Organization Address City/[facility]/ZIP Co de Phone Number [facility] [facility] [address] * Magnesium (10/28/2024 12:05 AM EDT) Magnesium 2.2 1.5 - 2.5 mg/dL 10/28/2024 1:59 AM EDT [facility] Plasma 10/28/2024 12:0 5 AM EDT 10/28/2024 12:11 AM EDT Kemar Sahni MD LAB BLOOD ORDERABLES Final Result Performing Organization Address [facility] de Phone Number [facility] [address] * (ABNORMAL) Renal Function Panel w/EGFR (10/28/2024 12:05 AM EDT) Sodium 144 133 - 146 mmol/L 10/28/2024 1:59 AM EDT [facility] Potassium 3.4(L) 3.5 - 5.3 mmol/L 10/28/2024 1:59 AM EDT [facility] Chloride 112(H) 98 - 110 mmol/L 10/28/2024 1:59 AM EDT [facility] CO2 19(L) 21 - 33 mmol/L 10/28/2024 1:59 AM EDT [facility] Anion Gap 13 3 - 16 mmol/L 10/28/2024 1:59 AM EDT [facility] BUN 59(H) 7 - 25 mg/dL 10/28/2024 1:59 AM EDT [facility] Creatinine 2.42(H) 0.60 - 1.30 mg/dL 10/28/2024 1:59 AM EDT [facility] Glucose 118(H) 70 - 100 mg/dL 10/28/2024 1:59 AM EDT [facility] Calcium 9.0 8.6 - 10.3 mg/dL 10/28/2024 1:59 AM EDT [facility] Phosphorus 5.3(H) 2.1 - 4.7 mg/dL 10/28/2024 1:59 AM EDT [facility] Albumin 3.1(L) 3.5 - 5.7 g/dL 10/28/2024 1:59 AM EDT [facility] Osmolality, Calculated 316(H) 278 - 305 mOsm/kg 10/28/2024 1:59 AM EDT [facility] EGFR 34 10/28/2024 1:59 AM EDT [facility] Comment:As of 2021, the estimated GFR [...] Sahni MD LAB BLOOD ORDERABLES Final Result [facility] [address] [address], [facility] * (ABNORMAL) Differential (10/28/2024 12:05 AM EDT) Neutrophils Relative 88.6(H) 40.0 - 80.0 % 10/28/2024 12:41 AM EDT [facility] Lymphocytes Relative 2.5(L) 15.0 - 45.0 % 10/28/2024 12:41 AM EDT [facility] Monocytes Relative 6.1 0.0 - 12.0 % 10/28/2024 12:41 AM EDT [facility] Eosinophils Relative 2.4 0.0 - 8.0 % 10/28/2024 12:41 AM EDT [facility] Basophils Relative 0.4 0.0 - 1.0 % 10/28/2024 12:41 AM EDT [facility] nRBC 0 0 - 0 /100 WBC 10/28/2024 12:41 AM EDT [facility] Neutrophils Absolute 4,341 1,520 - 8,640 /uL 10/28/2024 12:41 AM EDT [facility] Lymphocytes Absolute 123(L) 570 - 4,860 /uL 10/28/2024 12:41 AM EDT [facility] Monocytes Absolute 299 0 - 1,296 /uL 10/28/2024 12:41 AM EDT [facility] Eosinophils Absolute 118 0 - 864 /uL 10/28/2024 12:41 AM EDT [facility] Basophils Absolute 20 0 - 108 /uL 10/28/2024 12:41 AM EDT [facility] Whole Blood 10/28/2024 12:0 5 AM EDT 10/28/2024 12:11 AM EDT Kemar Sahni MD LAB BLOOD ORDERABLES Final Result Performing Organization Address City/State/[facility] Co de Phone Number [facility] [address] [place] [address], [facility] * (ABNORMAL) CBC (10/28/2024 12:05 AM EDT) WBC 4.9 3.8 - 10.8 10E3/uL 10/28/2024 12:41 AM EDT [facility] RBC 2.18(L) 4.20 - 5.80 10E6/uL 10/28/2024 12:41 AM EDT [facility] Hemoglobin 6.7(L) 13.2 - 17.1 g/dL 10/28/2024 12:41 AM EDT [facility] Hematocrit 19.2(L) 38.5 - 50.0 % 10/28/2024 12:41 AM EDT [facility] MCV 87.8 80.0 - 100.0 fL 10/28/2024 12:41 AM EDT [facility] MCH 30.6 27.0 - 33.0 pg 10/28/2024 12:41 AM EDT [facility] MCHC 34.8 32.0 - 36.0 g/dL 10/28/2024 12:41 AM EDT [facility] RDW 19.6(H) 11.0 - 15.0 % 10/28/2024 12:41 AM EDT [facility] Platelets 45(L) 140 - 400 10E3/uL 10/28/2024 12:41 AM EDT [facility] Comment: CNV Specimen checked for clots. None detected. MPV 7.8 7.5 - 11.5 fL 10/28/2024 12:41 AM EDT [facility] Whole Blood 10/28/2024 12:0 5 AM EDT 10/28/2024 12:11 AM EDT Kemar Sahni MD LAB BLOOD ORDERABLES Final Result [facility] [address] * (ABNORMAL) POC Glucose Monitoring Device (10/28/2024 12:03 AM EDT) POC Glucose Monitoring Device 122(H) 70 - 100 mg/dL 10/28/2024 12:04 AM EDT [facility] Blood 10/28/2024 12:0 3 AM EDT 10/28/2024 12:04 AM EDT Semaj Mcnair III, MD POINT OF CARE TEST ORDERABLES Final Result [facility] [address] * (ABNORMAL) POC Glucose Monitoring Device (10/27/2024 10:03 PM EDT) POC Glucose Monitoring Device 127(H) 70 - 100 mg/dL 10/27/2024 10:03 PM EDT [facility] Blood 10/27/2024 10:0 3 PM EDT 10/27/2024 10:03 PM EDT us Semaj Mcnair III, MD POINT OF CARE TEST ORDERABLES Final Result Performing Organization Address City/[facility]/ZIP Co de Phone Number [facility] [address] [facility]. [address] * (ABNORMAL) POC Glucose Monitoring Device (10/27/2024 8:06 PM EDT) POC Glucose Monitoring Device 128(H) 70 - 100 mg/dL 10/27/2024 8:45 PM EDT [facility] Blood 10/27/2024 8:06 PM EDT 10/27/2024 8:45 PM EDT us Semaj Mcnair III, MD POINT OF CARE TEST ORDERABLES Final Result Performing Organization Address [facility] Co de Phone Number [facility] [address] [facility] * (ABNORMAL) POC Glucose Monitoring Device (10/27/2024 6:00 PM EDT) POC Glucose Monitoring Device 128(H) 70 - 100 mg/dL 10/27/2024 6:00 PM EDT [facility] Blood 10/27/2024 6:00 PM EDT 10/27/2024 6:00 PM EDT us Semaj Mcnair III, MD POINT OF CARE TEST ORDERABLES Final Result Performing Organization Address City/[facility] Co de Phone Number [facility] [address] [facility]. [address] * Lactic Acid, STAT (10/27/2024 5:41 PM EDT) Lactate 0.5 0.5 - 2.2 mmol/L 10/27/2024 6:28 PM EDT [facility] Plasma 10/27/2024 5:41 PM EDT 10/27/2024 5:49 PM EDT Narrative [facility] - 10/27/2024 6:28 PM EDT Redraw John Moreno MD LAB BLOOD ORDERABLES Final R esult Performing Organization Address [facility] Co de Phone Number [facility] [address] [facility]. [address] * (ABNORMAL) Hepatic Function Panel, STAT (10/27/2024 5:13 PM EDT) Total Bilirubin 1.7(H) 0.0 - 1.5 mg/dL 10/27/2024 5:50 PM EDT [facility] Bilirubin, Direct 1.17(H) 0.00 - 0.40 mg/dL 10/27/2024 5:50 PM EDT [facility] AST 60(H) 13 - 39 U/L 10/27/2024 5:50 PM EDT [facility] ALT 134(H) 7 - 52 U/L 10/27/2024 5:50 PM EDT [facility] Alkaline Phosphatase 27(L) 36 - 125 U/L 10/27/2024 5:50 PM EDT [facility] Total Protein 4.1(L) 6.4 - 8.9 g/dL 10/27/2024 5:50 PM EDT [facility] Albumin 2.9(L) 3.5 - 5.7 g/dL 10/27/2024 5:50 PM EDT [facility] Bilirubin, Indirect 0.53 0.00 - 1.10 mg/dL 10/27/2024 5:50 PM EDT [facility] Plasma 10/27/2024 5:13 PM EDT 10/27/2024 5:23 PM EDT Shay Plata MD LAB BLOOD ORDERABLES Final Result Performing Organization Address [facility]/ZIP Co de Phone Number [facility] [address] [facility]. [address] * (ABNORMAL) TEG-Bypass/ECMO/Liver HN (Factor function, Platelet/Fibrin Clot Strength w/Clot Breakdown, Heparinase In All Channels) (10/27/2024 5:13 PM EDT) Citrated Kaolin Reaction Time (TEGECMOLIVER) 8.0 4.6 - 9.1 minutes 10/27/2024 6:56 PM EDT [facility] Citrated Kaolin W/Heparinase Reaction Time (TEGECMOLIVER) 6.8 4.3 - 8.3 minutes 10/27/2024 6:56 PM EDT [facility] Citrated Kaolin Maximum Amplitude (TEGECMOLIVER) 55.4 52.0 - 69.0 mm 10/27/2024 6:56 PM EDT [facility] Citrated Functional Fibrinogen W/Heparinase Maximum Amplitude(TEGEC MOLIVER) 22.9 15.0 - 34.0 mm 10/27/2024 6:56 PM EDT [facility] Citrated Rapid Teg W/Heparinase Maximum Amplitude (TEGECMOLIVER) 50.8(L) 53.0 - 69.0 mm 10/27/2024 6:56 PM EDT [facility] Citrated Kaolin w/Heparinase Percent Lysis (TEGECMOLIVER) 0.1 0.0 - 3.2 % 10/27/2024 6:56 PM EDT [facility] Whole Blood (Citrate) 10/27/2024 5:13 PM EDT 10/27/2024 5:20 PM EDT Kemar Sahni MD LAB BLOOD ORDERABLES Final Result [facility] [address] * (ABNORMAL) Protime-INR (10/27/2024 5:13 PM EDT) Protime 15.2(H) 12.1 - 15.1 seconds 10/27/2024 5:40 PM EDT [facility] INR 1.1 0.9 - 1.1 10/27/2024 5:40 PM EDT [facility] Comment: RECOMMENDED THERAPEUTIC RANGES USING INR : Stable oral anticoagulant therapy: 2.0 - 3.0 Mechanical prosthetic heart valve: 2.5 - 3.5 Recurrent acute myocardial infarction: 2.5 - 3.5 Plasma 10/27/2024 5:13 PM EDT 10/27/2024 5:23 PM EDT Kemar Sahni MD LAB BLOOD ORDERABLES Final Result Performing Organization Address City/[facility]/ZIP Co de Phone Number [facility] [address] [facility]. [address] * Magnesium (10/27/2024 5:13 PM EDT) Magnesium 2.4 1.5 - 2.5 mg/dL 10/27/2024 5:53 PM EDT [facility] Plasma 10/27/2024 5:13 PM EDT 10/27/2024 5:23 PM EDT Kemar Sahni MD LAB BLOOD ORDERABLES Final Result Performing Organization Address [facility] de Phone Number [facility] [address] [facility]. [address] * (ABNORMAL) Hepatic Function Panel (10/27/2024 5:13 PM EDT) Total Bilirubin 1.7(H) 0.0 - 1.5 mg/dL 10/27/2024 5:53 PM EDT [facility] Bilirubin, Direct 1.10(H) 0.00 - 0.40 mg/dL 10/27/2024 5:53 PM EDT [facility] AST 62(H) 13 - 39 U/L 10/27/2024 5:53 PM EDT [facility] ALT 134(H) 7 - 52 U/L 10/27/2024 5:53 PM EDT [facility] Alkaline Phosphatase 27(L) 36 - 125 U/L 10/27/2024 5:53 PM EDT [facility] Total Protein 4.1(L) 6.4 - 8.9 g/dL 10/27/2024 5:53 PM EDT [facility] Albumin 2.9(L) 3.5 - 5.7 g/dL 10/27/2024 5:53 PM EDT [facility] Bilirubin, Indirect 0.60 0.00 - 1.10 mg/dL 10/27/2024 5:53 PM EDT [facility] Plasma 10/27/2024 5:13 PM EDT 10/27/2024 5:23 PM EDT Kemar Sahni MD LAB BLOOD ORDERABLES Final Result [facility] [address] [place] [address], [facility] * (ABNORMAL) Renal Function Panel w/EGFR (10/27/2024 5:13 PM EDT) Sodium 142 133 - 146 mmol/L 10/27/2024 5:53 PM EDT [facility] Potassium 3.4(L) 3.5 - 5.3 mmol/L 10/27/2024 5:53 PM EDT [facility] Chloride 109 98 - 110 mmol/L 10/27/2024 5:53 PM EDT [facility] CO2 22 21 - 33 mmol/L 10/27/2024 5:53 PM EDT [facility] Anion Gap 11 3 - 16 mmol/L 10/27/2024 5:53 PM EDT [facility] BUN 61(H) 7 - 25 mg/dL 10/27/2024 5:53 PM EDT [facility] Creatinine 2.42(H) 0.60 - 1.30 mg/dL 10/27/2024 5:53 PM EDT [facility] Glucose 125(H) 70 - 100 mg/dL 10/27/2024 5:53 PM EDT [facility] Calcium 8.8 8.6 - 10.3 mg/dL 10/27/2024 5:53 PM EDT [facility] Phosphorus 5.7(H) 2.1 - 4.7 mg/dL 10/27/2024 5:53 PM EDT [facility] Albumin 2.9(L) 3.5 - 5.7 g/dL 10/27/2024 5:53 PM EDT [facility] Osmolality, Calculated 313(H) 278 - 305 mOsm/kg 10/27/2024 5:53 PM EDT [facility] EGFR 34 10/27/2024 5:53 PM EDT [facility] Comment:As of 2021, the estimated GFR [...] Sahni MD LAB BLOOD ORDERABLES Final Result [facility] [address] [id number] * (ABNORMAL) CBC (10/27/2024 5:13 PM EDT) WBC 4.9 3.8 - 10.8 10E3/uL 10/27/2024 6:14 PM EDT [facility] RBC 2.44(L) 4.20 - 5.80 10E6/uL 10/27/2024 6:14 PM EDT [facility] Hemoglobin 7.4(L) 13.2 - 17.1 g/dL 10/27/2024 6:14 PM EDT [facility] Hematocrit 21.4(L) 38.5 - 50.0 % 10/27/2024 6:14 PM EDT [facility] MCV 87.6 80.0 - 100.0 fL 10/27/2024 6:14 PM EDT [facility] MCH 30.3 27.0 - 33.0 pg 10/27/2024 6:14 PM EDT [facility] MCHC 34.6 32.0 - 36.0 g/dL 10/27/2024 6:14 PM EDT [facility] RDW 19.6(H) 11.0 - 15.0 % 10/27/2024 6:14 PM EDT [facility] Platelets 47(L) 140 - 400 10E3/uL 10/27/2024 6:14 PM EDT [facility] Comment: CNV Specimen checked for clots. None detected. MPV 8.1 7.5 - 11.5 fL 10/27/2024 6:14 PM EDT [facility] Whole Blood 10/27/2024 5:13 PM EDT 10/27/2024 5:23 PM EDT Kemar Sahni MD LAB BLOOD ORDERABLES Final Result [facility] [address] * (ABNORMAL) POC Glucose Monitoring Device (10/27/2024 3:57 PM EDT) [facility] POC Glucose Monitoring Device 131(H) 70 - 100 mg/dL 10/27/2024 3:58 PM EDT [facility] Blood 10/27/2024 3:57 PM EDT 10/27/2024 3:58 PM EDT us Semaj Mcnair III, MD POINT OF CARE TEST ORDERABLES Final Result [facility] [address] * (ABNORMAL) CBC, STAT (10/27/2024 2:40 PM EDT) Pathologist [facility] WBC 5.8 3.8 - 10.8 10E3/uL 10/27/2024 2:54 PM EDT [facility] RBC 2.43(L) 4.20 - 5.80 10E6/uL 10/27/2024 2:54 PM EDT [facility] Hemoglobin 7.5(L) 13.2 - 17.1 g/dL 10/27/2024 2:54 PM EDT [facility] Hematocrit 21.5(L) 38.5 - 50.0 % 10/27/2024 2:54 PM EDT [facility] MCV 88.2 80.0 - 100.0 fL 10/27/2024 2:54 PM EDT [facility] MCH 30.7 27.0 - 33.0 pg 10/27/2024 2:54 PM EDT [facility] MCHC 34.8 32.0 - 36.0 g/dL 10/27/2024 2:54 PM EDT [facility] RDW 19.1(H) 11.0 - 15.0 % 10/27/2024 2:54 PM EDT [facility] Platelets 50(L) 140 - 400 10E3/uL 10/27/2024 2:54 PM EDT [facility] MPV 7.5 7.5 - 11.5 fL 10/27/2024 2:54 PM EDT [facility] Whole Blood 10/27/2024 2:40 PM EDT 10/27/2024 2:44 PM EDT us John Moreno MD LAB BLOOD ORDERABLES Final R esult [facility] [address] [place] [address], [facility] * (ABNORMAL) Blood Gas, Arterial, STAT (10/27/2024 2:40 PM EDT) O2 Sat, Arterial 98 10/27/2024 2:46 PM EDT [facility] FIO2 RA 10/27/2024 2:46 PM EDT [facility] pH, Arterial 7.37 7.35 - 7.45 10/27/2024 2:46 PM EDT [facility] pCO2, Arterial 35 35 - 45 mm Hg 10/27/2024 2:46 PM EDT [facility] pO2, Arterial 92 80 - 100 mm Hg 10/27/2024 2:46 PM EDT [facility] HCO3, Arterial 21(L) 22 - 26 mmol/L 10/27/2024 2:46 PM EDT [facility] CO2 Content,Arteri al 21(L) 23 - 27 mmol/L 10/27/2024 2:46 PM EDT [facility] Base Excess, Arterial -4.6(L) -2.0 - 3.0 mmol/L 10/27/2024 2:46 PM EDT [facility] %HBO2, Arterial 95.4 95.0 - 98.0 % 10/27/2024 2:46 PM EDT [facility] Carboxyhemoglo bin, Arterial 1.6 % 10/27/2024 2:46 PM EDT [facility] Comment: CARBOXYHEMOGLOBIN (CO) REFERENCE RANGES: Non-Smokers: <2 % Smokers: <8 % TOXIC: >20 % Methemoglobin, Arterial 1.0 0.0 - 1.5 % 10/27/2024 2:46 PM EDT [facility] Reduced hemoglobin, Arterial 2.1 0.0 - 5.0 % 10/27/2024 2:46 PM EDT [facility] Blood, Arterial 10/27/2024 2 :40 PM EDT 10/27/2024 2:44 PM EDT Narrative [facility] - 10/27/2024 2:46 PM EDT Post extubation John Moreno MD LAB BLOOD ORDERABLES Final R esult Performing Organization Address City/[facility]/ZIP Co de Phone Number [facility] [address] * (ABNORMAL) POC Glucose Monitoring Device (10/27/2024 2:06 PM EDT) [facility] POC Glucose Monitoring Device 134(H) 70 - 100 mg/dL 10/27/2024 2:06 PM EDT [facility] Blood 10/27/2024 2:06 PM EDT 10/27/2024 2:06 PM EDT Semaj Mcnair III, MD POINT OF CARE TEST ORDERABLES Final Result [facility] [address] [place] [address], [facility] * (ABNORMAL) Blood gas, arterial (10/27/2024 12:35 PM EDT) O2 Sat, Arterial 99 10/27/2024 12:46 PM EDT [facility] FIO2 SBT 30% 10/27/2024 12:46 PM EDT [facility] pH, Arterial 7.35 7.35 - 7.45 10/27/2024 12:46 PM EDT [facility] pCO2, Arterial 37 35 - 45 mm Hg 10/27/2024 12:46 PM EDT [facility] pO2, Arterial 182(H) 80 - 100 mm Hg 10/27/2024 12:46 PM EDT [facility] HCO3, Arterial 21(L) 22 - 26 mmol/L 10/27/2024 12:46 PM EDT [facility] CO2 Content,Arteri al 22(L) 23 - 27 mmol/L 10/27/2024 12:46 PM EDT [facility] Base Excess, Arterial -4.8(L) -2.0 - 3.0 mmol/L 10/27/2024 12:46 PM EDT [facility] %HBO2, Arterial 96.3 95.0 - 98.0 % 10/27/2024 12:46 PM EDT [facility] Carboxyhemoglo bin, Arterial 1.7 % 10/27/2024 12:46 PM EDT [facility] Comment: CARBOXYHEMOGLOBIN (CO) REFERENCE RANGES: Non-Smokers: <2 % Smokers: <8 % TOXIC: >20 % Methemoglobin, Arterial 1.4 0.0 - 1.5 % 10/27/2024 12:46 PM EDT [facility] Reduced hemoglobin, Arterial 0.6 0.0 - 5.0 % 10/27/2024 12:46 PM EDT [facility] Blood, Arterial 10/27/2024 1 2:35 PM EDT 10/27/2024 12:42 PM EDT Narrative [facility] - 10/27/2024 12:46 PM EDT Please obtain post SBT us Shay Sifuentes MD LAB BLOOD ORDERABLES Final Resu lt [facility] [address] [facility] * (ABNORMAL) TEG-Bypass/ECMO/Liver HN (Factor function, Platelet/Fibrin Clot Strength w/Clot Breakdown, Heparinase In All Channels) (10/27/2024 12:07 PM EDT) Citrated Kaolin Reaction Time (TEGECMOLIVER) 7.9 4.6 - 9.1 minutes 10/27/2024 1:24 PM EDT [facility] Citrated Kaolin W/Heparinase Reaction Time (TEGECMOLIVER) 8.3 4.3 - 8.3 minutes 10/27/2024 1:24 PM EDT [facility] Citrated Kaolin Maximum Amplitude (TEGECMOLIVER) 52.0 52.0 - 69.0 mm 10/27/2024 1:24 PM EDT [facility] Citrated Functional Fibrinogen W/Heparinase Maximum Amplitude(TEGEC MOLIVER) 20.1 15.0 - 34.0 mm 10/27/2024 1:24 PM EDT [facility] Citrated Rapid Teg W/Heparinase Maximum Amplitude (TEGECMOLIVER) 49.4(L) 53.0 - 69.0 mm 10/27/2024 1:24 PM EDT [facility] Citrated Kaolin w/Heparinase Percent Lysis (TEGECMOLIVER) 0.0 0.0 - 3.2 % 10/27/2024 1:24 PM EDT [facility] Whole Blood (Citrate) 10/27/2024 12:07 PM EDT 10/27/2024 12:09 PM EDT us Kemar Sahni MD LAB BLOOD ORDERABLES Final Result [facility] [address] [facility] * (ABNORMAL) POC Glucose Monitoring Device (10/27/2024 12:01 PM EDT) POC Glucose Monitoring Device 121(H) 70 - 100 mg/dL 10/27/2024 12:02 PM EDT [facility] Blood 10/27/2024 12:0 1 PM EDT 10/27/2024 12:01 PM EDT Semaj Mcnair III, MD POINT OF CARE TEST ORDERABLES Final Result Performing Organization Address [facility]/ZIP Co de Phone Number [facility] [address] * (ABNORMAL) POC Glucose Monitoring Device (10/27/2024 10:59 AM EDT) POC Glucose Monitoring Device 126(H) 70 - 100 mg/dL 10/27/2024 11:10 AM EDT [facility] Blood 10/27/2024 10:5 9 AM EDT 10/27/2024 11:10 AM EDT Semaj Mcnair III, MD POINT OF CARE TEST ORDERABLES Final Result Performing Organization Address [facility] Co de Phone Number [facility] [address] [facility]. [address] * ECG 12 lead (MUSE) (10/27/2024 10:17 AM EDT) 10/27/2024 10:1 7 AM EDT Narrative MUSE - 10/27/2024 2:51 PM EDT Ventricular Rate: 91 BPM Atrial Rate: 91 BPM P-R Interval: 168 ms QRS Duration: 90 ms QT: 274 ms QTc: 337 ms P [place]: 60 degrees R [place]: -30 degrees T [place]: -15 degrees Diagnosis Line: NORMAL SINUS RHYTHM ^ LEFT AXIS DEVIATION, LEFT ANTERIOR HEMIBLOCK ^ NONSPECIFIC T WAVE CHANGE ^ ABNORMAL ECG ^ ^ Confirmed by MD ROLLY, [facility] ([id number]) on 10/27/2024 2:51:52 PM Shay Sifuentes MD ECG ORDERABLES Final Result Performing Organization Address City/[facility]/ZIP Co de Phone Number MUSE * (ABNORMAL) POC Glucose Monitoring Device (10/27/2024 10:00 AM EDT) POC Glucose Monitoring Device 121(H) 70 - 100 mg/dL 10/27/2024 10:01 AM EDT [facility] Blood 10/27/2024 10:0 0 AM EDT 10/27/2024 10:01 AM EDT us Semaj Mcnair III, MD POINT OF CARE TEST ORDERABLES Final Result [facility] [address] [place] [address], [facility] * US Renal Transplant (10/27/2024 9:51 AM [...] US ORDERABLES Final Result * US Duplex Eye-Kcb-Isowocf Comp (10/27/2024 9:51 AM EDT) Anatomical Region [...] EXAM: US ABDOMEN LIMITED EXAM: US DUPLEX [id number] COMPLETE INDICATION: Post-op liver transplant COMPARISON: None [...] absent.. Pancreas: Obscured by overlying bowel gas. [place] right kidney: 12.5 cm in length. Normal [...] EXAM: US ABDOMEN LIMITED EXAM: US DUPLEX [id number] COMPLETE INDICATION: Post-op liver transplant COMPARISON: None [...] absent.. Pancreas: Obscured by overlying bowel gas. [place] right kidney: 12.5 cm in length. Normal [...] EXAM: US ABDOMEN LIMITED EXAM: US DUPLEX [id number] COMPLETE INDICATION: Post-op liver transplant COMPARISON: None [...] absent.. Pancreas: Obscured by overlying bowel gas. [place] right kidney: 12.5 cm in length. Normal [...] EXAM: US ABDOMEN LIMITED EXAM: US DUPLEX [id number] COMPLETE INDICATION: Post-op liver transplant COMPARISON: None [...] absent.. Pancreas: Obscured by overlying bowel gas. [place] right kidney: 12.5 cm in length. Normal [...] - 100 mg/dL 10/27/2024 9:06 AM EDT [facility] Blood 10/27/2024 9:05 AM EDT 10/27/2024 9:06 AM EDT Semaj Mcnair III, MD POINT OF CARE TEST ORDERABLES Final Result [facility] [address] [place] [address], [facility] * X-ray Portable Chest (10/27/2024 8:58 AM [...] - 15.1 seconds 10/27/2024 8:35 AM EDT [facility] INR 1.2(H) 0.9 - 1.1 10/27/2024 8:35 AM EDT [facility] [facility] Comment: RECOMMENDED THERAPEUTIC RANGES USING INR : Stable oral anticoagulant therapy: 2.0 - 3.0 Mechanical prosthetic heart valve: 2.5 - 3.5 Recurrent acute myocardial infarction: 2.5 - 3.5 Plasma 10/27/2024 8:16 AM EDT 10/27/2024 8:20 AM EDT us John Moreno MD LAB BLOOD ORDERABLES Final R esult [facility] [address] [place], [place] [address] * Magnesium (10/27/2024 8:00 AM EDT) Magnesium 1.8 1.5 - 2.5 mg/dL 10/27/2024 10:50 AM EDT [facility] Plasma 10/27/2024 8:00 AM EDT 10/27/2024 10:31 AM EDT Kemar Sahni MD LAB BLOOD ORDERABLES Final Result [facility] [address] * (ABNORMAL) Renal Function Panel w/EGFR (10/27/2024 8:00 AM EDT) Sodium 142 133 - 146 mmol/L 10/27/2024 10:18 AM EDT [facility] Potassium 3.0(L) 3.5 - 5.3 mmol/L 10/27/2024 10:18 AM EDT [facility] Chloride 109 98 - 110 mmol/L 10/27/2024 10:18 AM EDT [facility] CO2 21 21 - 33 mmol/L 10/27/2024 10:18 AM EDT [facility] Anion Gap 12 3 - 16 mmol/L 10/27/2024 10:18 AM EDT [facility] BUN 59(H) 7 - 25 mg/dL 10/27/2024 10:18 AM EDT [facility] Creatinine 2.54(H) 0.60 - 1.30 mg/dL 10/27/2024 10:18 AM EDT [facility] Glucose 111(H) 70 - 100 mg/dL 10/27/2024 10:18 AM EDT [facility] Calcium 9.1 8.6 - 10.3 mg/dL 10/27/2024 10:18 AM EDT [facility] Phosphorus 5.5(H) 2.1 - 4.7 mg/dL 10/27/2024 10:18 AM EDT [facility] Albumin 3.0(L) 3.5 - 5.7 g/dL 10/27/2024 10:18 AM EDT [facility] Osmolality, Calculated 311(H) 278 - 305 mOsm/kg 10/27/2024 10:18 AM EDT [facility] EGFR 32 10/27/2024 10:18 AM EDT [facility] Comment:As of 2021, the estimated GFR [...] Sahni MD LAB BLOOD ORDERABLES Final Result [facility] [address] * (ABNORMAL) Hepatic Function Panel, STAT (10/27/2024 8:00 AM EDT) Total Bilirubin 1.3 0.0 - 1.5 mg/dL 10/27/2024 8:51 AM EDT [facility] Bilirubin, Direct 0.93(H) 0.00 - 0.40 mg/dL 10/27/2024 8:51 AM EDT [facility] AST 88(H) 13 - 39 U/L 10/27/2024 8:51 AM EDT [facility] ALT 149(H) 7 - 52 U/L 10/27/2024 8:51 AM EDT [facility] Alkaline Phosphatase 26(L) 36 - 125 U/L 10/27/2024 8:51 AM EDT [facility] Total Protein 4.0(L) 6.4 - 8.9 g/dL 10/27/2024 8:51 AM EDT [facility] Albumin 3.0(L) 3.5 - 5.7 g/dL 10/27/2024 8:51 AM EDT [facility] Bilirubin, Indirect 0.37 0.00 - 1.10 mg/dL 10/27/2024 8:51 AM EDT [facility] Plasma 10/27/2024 8:00 AM EDT 10/27/2024 8:20 AM EDT Semaj Mcnair III, MD LAB BLOOD ORDERABLE S Final Result Performing Organization Address [facility] Co de Phone Number [facility] [address] [place] [address] * (ABNORMAL) Lactic Acid, STAT (10/27/2024 8:00 AM EDT) Lactate 0.4(L) 0.5 - 2.2 mmol/L 10/27/2024 8:43 AM EDT [facility] Plasma 10/27/2024 8:00 AM EDT 10/27/2024 8:20 AM EDT Semaj Mcnair III, MD LAB BLOOD ORDERABLE S Final Result Performing Organization Address [facility] de Phone Number [facility] [address] [place] [address] * (ABNORMAL) Blood Gas, Arterial, STAT (10/27/2024 8:00 AM EDT) O2 Sat, Arterial 100 10/27/2024 8:23 AM EDT [facility] pH, Arterial 7.36 7.35 - 7.45 10/27/2024 8:23 AM EDT [facility] pCO2, Arterial 37 35 - 45 mm Hg 10/27/2024 8:23 AM EDT [facility] pO2, Arterial 245(H) 80 - 100 mm Hg 10/27/2024 8:23 AM EDT [facility] HCO3, Arterial 22 22 - 26 mmol/L 10/27/2024 8:23 AM EDT [facility] CO2 Content,Arteri al 22(L) 23 - 27 mmol/L 10/27/2024 8:23 AM EDT [facility] Base Excess, Arterial -4.2(L) -2.0 - 3.0 mmol/L 10/27/2024 8:23 AM EDT [facility] %HBO2, Arterial 96.5 95.0 - 98.0 % 10/27/2024 8:23 AM EDT [facility] Carboxyhemoglo bin, Arterial 2.2 % 10/27/2024 8:23 AM EDT [facility] Comment: CARBOXYHEMOGLOBIN (CO) REFERENCE RANGES: Non-Smokers: <2 % Smokers: <8 % TOXIC: >20 % Methemoglobin, Arterial 1.2 0.0 - 1.5 % 10/27/2024 8:23 AM EDT [facility] Reduced hemoglobin, Arterial 0.0 0.0 - 5.0 % 10/27/2024 8:23 AM EDT [facility] Blood, Arterial 10/27/2024 8 :00 AM EDT 10/27/2024 8:19 AM EDT Narrative [facility] - 10/27/2024 8:23 AM EDT Specimen is beyond 15 minutes from time of collection. Results may be compromised. Review results critically. us Kemar Sahni MD LAB BLOOD ORDERABLES Final Result [facility] [address] * (ABNORMAL) TEG-Bypass/ECMO/Liver HN (Factor function, Platelet/Fibrin Clot Strength w/Clot Breakdown, Heparinase In All Channels) (10/27/2024 8:00 AM EDT) Citrated Kaolin Reaction Time (TEGECMOLIVER) 7.8 4.6 - 9.1 minutes 10/27/2024 9:39 AM EDT [facility] Citrated Kaolin W/Heparinase Reaction Time (TEGECMOLIVER) 8.0 4.3 - 8.3 minutes 10/27/2024 9:39 AM EDT [facility] Citrated Kaolin Maximum Amplitude (TEGECMOLIVER) 52.7 52.0 - 69.0 mm 10/27/2024 9:39 AM EDT [facility] Citrated Functional Fibrinogen W/Heparinase Maximum Amplitude(TEGEC MOLIVER) 19.0 15.0 - 34.0 mm 10/27/2024 9:39 AM EDT [facility] Citrated Rapid Teg W/Heparinase Maximum Amplitude (TEGECMOLIVER) 49.5(L) 53.0 - 69.0 mm 10/27/2024 9:39 AM EDT [facility] Citrated Kaolin w/Heparinase Percent Lysis (TEGECMOLIVER) 0.0 0.0 - 3.2 % 10/27/2024 9:39 AM EDT [facility] Whole Blood (Citrate) 10/27/2024 8:00 AM EDT 10/27/2024 8:19 AM EDT Kemar Sahni MD LAB BLOOD ORDERABLES Final Result Performing Organization Address [facility] Co de Phone Number [facility] [address] [place] [address] * (ABNORMAL) Katie-Watkins virus VCA IgG Antibody (10/27/2024 8:00 AM EDT) EBV VCA IgG Positive( A) Negative 10/27/2024 11:30 AM EDT [facility] Comment:Presence of detectab le VCA IgG antibodies. 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 EBV IGG NUM 314.00(H) 0.00 - 17.99 U/mL 10/27/2024 11:30 AM EDT [facility] Serum 10/27/2024 8:00 AM EDT 10/27/2024 8:20 AM EDT Kemar Sahni MD LAB BLOOD ORDERABLES Final Result Performing Organization Address City/[facility] Co de Phone Number [facility] [address] [place] [address] * Hemoglobin A1c (10/27/2024 8:00 AM EDT) Hemoglobin A1C 5.0 4.0 - 5.6 % 10/27/2024 11:12 AM EDT [facility] Comment: Hemoglobin A1c Interpretation Guidelines: Normal: [...] BLOOD ORDERABLES Final Result Performing Organization Address City/[facility] Co de Phone Number [facility] [address] * (ABNORMAL) POC Glucose Monitoring Device (10/27/2024 7:59 AM EDT) [facility] POC Glucose Monitoring Device 113(H) 70 - 100 mg/dL 10/27/2024 7:59 AM EDT [facility] Blood 10/27/2024 7:59 AM EDT 10/27/2024 7:59 AM EDT Semaj Mcnair III, MD POINT OF CARE TEST ORDERABLES Final Result Performing Organization Address City/[facility] Co de Phone Number [facility] [address] * X-ray Abdomen AP view (10/27/2024 [...] Units (10/27/2024 6:16 AM EDT) Product Code D7060J19 HCLL Unit Number [id number] HCLL Dispense Status Presumed Transfused_PT HCLL Blood Expiration Date [id number] HCLL Coding System HSQG440 HCLL Product Code E3547P22 HCLL Unit Number [id number] HCLL Dispense Status Presumed Transfused_PT HCLL Blood Expiration Date 075003080901 HCLL Coding System VEBB365 HCLL Blood Bank Product John Pina MD BLOOD BANK PRODUCT ORDERABLES F inal Result Performing Organization Address City/[facility] Co de Phone Number [facility] * Prepare Platelets, leukoreduced, 1 Units (10/27/2024 6:16 AM EDT) Product Code S4526X58 [facility] Unit Number [id number] [facility] Dispense Status Presumed Transfused_PT HCLL Blood Expiration Date 999412261668 HCLL Coding System YMQG989 [facility]LL Blood Bank Product Eber Quinones MD BLOOD BANK PRODUCT ORDER PAL Final Result Performing Organization Address [facility] de Phone Number [facility] * Prepare Cryoprecipitate, 1 Units (10/27/2024 6:16 AM EDT) Product Code N2814I83 HCLL Unit Number [id number] [facility] Dispense Status Presumed Transfused_PT HCLL Blood Expiration Date HCLL Coding System DRDD576 HCLL Product Code H3534P84 HCLL Unit Number [id number] HCLL Dispense Status Presumed Transfused_PT HCLL Blood Expiration Date 785408290088 HCLL Coding System BRJQ214 HCLL Blood Bank Product Eber Quinones MD BLOOD BANK PRODUCT ORDER PAL Final Result Performing Organization Address City/[facility] Co de Phone Number [facility] * Prepare Fresh Frozen Plasma, 10 Units (10/27/2024 6:16 AM EDT) Product Code F0899J15 HC[facility] Unit Number [id number] [facility] Dispense Status Presumed Transfused_PT HCLL Blood Expiration Date HCLL Coding System GSBE903 HCLL Product Code Q4189G34 HCLL Unit Number [id number] HCLL Dispense Status Presumed Transfused_PT HCLL Blood Expiration Date HCLL Coding System RNJF092 HCLL Product Code J5002J63 HCLL Unit Number [id number] HCLL Dispense Status Presumed Transfused_PT HCLL Blood Expiration Date HCLL Coding System LSXG234 HCLL Product Code H7794A49 HCLL Unit Number [id number] HCLL Dispense Status Presumed Transfused_PT HCLL Blood Expiration Date 900937264034 HCLL Coding System PHUU895 HCLL Product Code O0868B36 HCLL Unit Number [id number] HCLL Dispense Status Released from Crossmatch_RE HCLL Blood Expiration Date HCLL Coding System YEBH548 HCLL Product Code H8510L45 HCLL Unit Number [id number] HCLL Dispense Status Released from Crossmatch_RE HCLL Blood Expiration Date HCLL Coding System GODZ804 HCLL Product Code G0390K89 HCLL Unit Number [id number] HCLL Dispense Status Presumed Transfused_PT HCLL Blood Expiration Date HCLL Coding System RYKX662 HCLL Product Code X5215K05 HCLL Unit Number [id number] HCLL Dispense Status Presumed Transfused_PT HCLL Blood Expiration Date HCLL Coding System NCAU363 HCLL Product Code M6970V15 HCLL Unit Number [id number] HCLL Dispense Status Presumed Transfused_PT HCLL Blood Expiration Date HCLL Coding System CJQE197 HCLL Product Code B0569N39 HCLL Unit Number [id number] HCLL Dispense Status Presumed Transfused_PT HCLL Blood Expiration Date HCLL Coding System ADAU086 HC[facility] Blood Bank Product Leandra Og MD BLOOD BANK PRODUCT ORD ERABLES Final Result [facility] * Prepare Platelets, leukoreduced, 1 Units (10/27/2024 6:16 AM EDT) Product Code R3179Y67 HCLL Unit Number [id number] HCLL Dispense Status Presumed Transfused_PT HCLL Blood Expiration Date 243663060834 HCLL Coding System REJF213 HCLL Blood Bank Product Ben Blake MD BLOOD BANK PRODUCT ORDERABLES Final Result Performing Organization Address City/[facility]/ZIP Co de Phone Number HC[facility] * Prepare Fresh Frozen Plasma (10/27/2024 6:15 AM EDT) Product Code R7574A85 HCLL Unit Number [id number] HCLL Dispense Status Presumed Transfused_PT HCLL Blood Expiration Date HCLL Coding System QGQZ236 HCLL Product Code M9327O50 HCLL Unit Number [id number] HCLL Dispense Status Released from Crossmatch_RE HCLL Blood Expiration Date HCLL Coding System CAGA311 HCLL Product Code X1746O23 HCLL Unit Number [id number] HCLL Dispense Status Presumed Transfused_PT HCLL Blood Expiration Date HCLL Coding System FMAE559 HCLL Product Code E6200H96 HCLL Unit Number [id number] HCLL Dispense Status Presumed Transfused_PT HCLL Blood Expiration Date HCLL Coding System MQYH593 HCLL Product Code F0360Q97 HCLL Unit Number [id number] HCLL Dispense Status Released from Crossmatch_RE HCLL Blood Expiration Date HCLL Coding System JKHL927 HCLL Attending Provider Unknown BLOOD BANK PRODUCT OR DERABLES Final Result Performing Organization Address [facility] de Phone Number HC[facility] * Prepare RBC, leukoreduced (10/27/2024 6:15 AM EDT) Product Code T1256T64 HCLL Unit Number [id number] HCLL Dispense Status Presumed Transfused_PT HCLL Blood Expiration Date 544434282561 HCLL Coding System GWBW671 HCLL Product Code L7606T60 HCLL Unit Number [id number] HCLL Dispense Status Released from Crossmatch_RE HCLL Blood Expiration Date HCLL Coding System TOHQ543 HCLL Product Code Q6869K63 HCLL Unit Number [id number] HCLL Dispense Status Released from Crossmatch_RE HCLL Blood Expiration Date 654410269651 HCLL Coding System RYFW053 HCLL Product Code Z3698B61 HCLL Unit Number [id number] HCLL Dispense Status Released from Crossmatch_RE HCLL Blood Expiration Date 895291372981 HCLL Coding System CBOO759 HCLL Product Code H8608L86 HCLL Unit Number [id number] HCLL Dispense Status Released from Crossmatch_RE HCLL Blood Expiration Date 862810262445 HCLL Coding System FBLC757 HCLL us Attending Provider Unknown BLOOD BANK PRODUCT OR DERABLES Final Result Performing Organization Address [facility] de Phone Number HC[facility] * Prepare RBC, leukoreduced, 10 Units (10/27/2024 6:15 AM EDT) Product Code R7157J26 HCLL Unit Number [id number] HCLL Dispense Status Presumed Transfused_PT HCLL Blood Expiration Date 667730775935 HCLL Coding System PUGH327 HCLL Product Code M4908B08 HCLL Unit Number [id number] HCLL Dispense Status Presumed Transfused_PT HCLL Blood Expiration Date 744146218463 HCLL Coding System ZFOD344 HCLL Product Code D4666I86 HCLL Unit Number [id number] HCLL Dispense Status Presumed Transfused_PT HCLL Blood Expiration Date 326153774234 HCLL Coding System WLCS304 HCLL Product Code G4993U22 HCLL Unit Number [id number] HCLL Dispense Status Presumed Transfused_PT HCLL Blood Expiration Date 345129314933 HCLL Coding System RWUH644 HCLL Product Code L9970S23 HCLL Unit Number [id number] HCLL Dispense Status Presumed Transfused_PT HCLL Blood Expiration Date 567064804894 HCLL Coding System HZEN982 HCLL Product Code Y6716Q35 HCLL Unit Number [id number] HCLL Dispense Status Presumed Transfused_PT HCLL Blood Expiration Date 161487192638 HCLL Coding System WODZ282 HCLL Product Code D0338S68 HCLL Unit Number [id number] HCLL Dispense Status Presumed Transfused_PT HCLL Blood Expiration Date 107252600691 HCLL Coding System ERYH143 HCLL Product Code P4044T75 HCLL Unit Number [id number] HCLL Dispense Status Presumed Transfused_PT HCLL Blood Expiration Date 965013821839 HCLL Coding System DTTP382 HCLL Product Code L5757D62 HCLL Unit Number [id number] HCLL Dispense Status Presumed Transfused_PT HCLL Blood Expiration Date 668722421586 HCLL Coding System OQAR249 HCLL Product Code N1482P54 HCLL Unit Number [id number] HCLL Dispense Status Presumed Transfused_PT HCLL Blood Expiration Date 047862387253 HCLL Coding System TSSO514 HCLL Blood Bank Product us Leandra Og MD BLOOD BANK PRODUCT ORD ERABLES Final Result [facility] * Transfuse Platelets (10/27/2024 6:09 AM EDT) us Ben Blake MD NURSING TREATMENT ORDERABLES - BLOOD ADMIN Final Result * (ABNORMAL) Arterial Blood Gas Panel (10/27/2024 6:09 AM EDT) O2Sat (ABGP) 100 10/27/2024 6:17 AM EDT [facility] pH (ABGP) 7.30(L) 7.35 - 7.45 10/27/2024 6:17 AM EDT [facility] PCO2 (ABGP) 41 35 - 45 mm Hg 10/27/2024 6:17 AM EDT [facility] PO2 (ABGP) 192(H) 80 - 100 mm Hg 10/27/2024 6:17 AM EDT [facility] HCO3 (ABGP) 21(L) 22 - 26 mmol/L 10/27/2024 6:17 AM EDT [facility] CO2 Content (ABGP) 22(L) 23 - 27 mmol/L 10/27/2024 6:17 AM EDT [facility] Base Excess (ABGP) -5.7(L) -2.0 - 3.0 mmol/L 10/27/2024 6:17 AM EDT [facility] Sodium (ABGP) 138 136 - 146 mEq/L 10/27/2024 6:17 AM T [facility] Potassium (ABGP) 3.3(L) 3.5 - 5.0 mEq/L 10/27/2024 6:[facility] Comment:In the event of in-v itro hemolysis, potassium results may be falsely elevated. Always interpret lab results in conjunction with clinical findings. If hemolysis is suspected, a serum sample may be collected for repeat assessment of potassium. Calcium, Free (ABGP) 5.28 4.50 - 5.30 mg/dL 10/27/2024 6:17 AM EDT [facility] Glucose (ABGP) 112(H) 70 - 100 mg/dL 10/27/2024 6:17 AM [facility] Comment:There is interferenc e with whole blood glucose results on this method when Hematocrit is <25% or >60%. HCT (ABGP) 20.0(L) 40.0 - 52.0 % 10/27/2024 6:17 AM EDT [facility] HGB (ABGP) 6.5(L) 14.0 - 18.0 g/dL 10/27/2024 6:17 AM EDT [facility] %HBO2 (ABGP) 96.8 95.0 - 98.0 % 10/27/2024 6:17 AM EDT [facility] Carboxyhgb (ABGP) 2.1 % 025 6:17 AM EDT [facility] Comment: CARBOXYHEMOGLOBIN (CO) REFERENCE RANGES: Non-Smokers: <2 % Smokers: <8 % TOXIC: >20 % Methemoglobin (ABGP) 1.0 0.0 - 1.5 % 10/27/2024 6:17 AM EDT [facility] Reduced Hemoglobin (ABGP) 0.2 0.0 - 5.0 % 10/27/2024 6:17 AM EDT [facility] Lactic Acid (ABGP) 0.4(L) 0.5 - 1.6 mmol/L 10/27/2024 6:17 AM EDT [facility] Blood, Arterial 10/27/2024 6 :09 AM EDT 10/27/2024 6:14 AM EDT Ben Blake MD LAB BLOOD ORDERABLES Final Re sult [facility] [address] [id number], [facility] * Transfuse Fresh Frozen Plasma (10/27/2024 5:49 [...] - 100 mg/dL 10/27/2024 4:47 AM EDT [facility] Blood 10/27/2024 4:46 AM EDT 10/27/2024 4:47 AM EDT Semaj Mcnair III, MD POINT OF CARE TEST ORDERABLES Final Result [facility] [address] [place], [place] [address] * Transfuse Platelets (10/27/2024 4:24 AM EDT) Result [facility] Ben Blake MD NURSING TREATMENT ORDERABLES - BLOOD ADMIN Final Result * Transfuse Fresh Frozen Plasma (10/27/2024 4:07 AM EDT) Ben Blake MD NURSING TREATMENT ORDERABLES - BLOOD ADMIN Final Result * Transfuse RBC (10/27/2024 3:52 AM EDT) Result [facility] Ben Blake MD NURSING TREATMENT ORDERABLES - BLOOD ADMIN Final Result * (ABNORMAL) Arterial Blood Gas Panel (10/27/2024 3:07 AM EDT) O2Sat (ABGP) 100 10/27/2024 3:21 AM EDT [facility] pH (ABGP) 7.32(L) 7.35 - 7.45 10/27/2024 3:21 AM EDT [facility] PCO2 (ABGP) 38 35 - 45 mm Hg 10/27/2024 3:21 AM EDT [facility] PO2 (ABGP) 176(H) 80 - 100 mm Hg 10/27/2024 3:21 AM EDT [facility] HCO3 (ABGP) 20(L) 22 - 26 mmol/L 10/27/2024 3:21 AM EDT [facility] CO2 Content (ABGP) 21(L) 23 - 27 mmol/L 10/27/2024 3:21 AM EDT [facility] Base Excess (ABGP) -6.0(L) -2.0 - 3.0 mmol/L 10/27/2024 3:21 AM EDT [facility] Sodium (ABGP) 138 136 - 146 mEq/L 10/27/2024 3:21 AM EDT [facility] Potassium (ABGP) 3.0(L) 3.5 - 5.0 mEq/L 10/27/2024 3:21 AM EDT [facility] Comment:In the event of in-v itro hemolysis, potassium results may be falsely elevated. Always interpret lab results in conjunction with clinical findings. If hemolysis is suspected, a serum sample may be collected for repeat assessment of potassium. Calcium, Free (ABGP) 5.28 4.50 - 5.30 mg/dL 10/27/2024 3:21 AM EDT [facility] Glucose (ABGP) 108(H) 70 - 100 mg/dL 10/27/2024 3:21 AM T [facility] Comment:There is interferenc e with whole blood glucose results on this method when Hematocrit is <25% or >60%. HCT (ABGP) 22.0(L) 40.0 - 52.0 % 10/27/2024 3:21 AM EDT [facility] HGB (ABGP) 7.3(L) 14.0 - 18.0 g/dL 10/27/2024 3:21 AM T [facility] %HBO2 (ABGP) 97.3 95.0 - 98.0 % 10/27/2024 3:21 AM EDT [facility] Carboxyhgb (ABGP) 1.9 % 025 3:21 AM EDT [facility] Comment: CARBOXYHEMOGLOBIN (CO) REFERENCE RANGES: Non-Smokers: <2 % Smokers: <8 % TOXIC: >20 % Methemoglobin (ABGP) 0.8 0.0 - 1.5 % 10/27/2024 3:21 AM EDT [facility] Reduced Hemoglobin (ABGP) 0.0 0.0 - 5.0 % 10/27/2024 3:21 AM T [facility] Lactic Acid (ABGP) 0.3(L) 0.5 - 1.6 mmol/L 10/27/2024 3:21 AM T [facility] Blood, Arterial 10/27/2024 3 :07 AM EDT 10/27/2024 3:14 AM EDT us Ben Blake MD LAB BLOOD ORDERABLES Final Re sult [facility] [address] [place] [address], [facility] * Surgical Pathology Exam (10/27/2024 2:38 AM EDT) Tissue LEFT KIDNEY STRUCTURE / Unknown 10/27/2024 2:38 AM EDT Narrative [facility] - 10/27/2024 12:00 AM EDT CASE: [id number] PATIENT: BLAIR GILBERT Clinical History: Transplant kidney with bile duct reconstruction Pre-Operative Diagnosis: Acute kidney injury superimposed on CKD Post-Operative Diagnosis: None Given Specimen(s) Submitted: A. baseline renal biopsy ; B. right lobe liver biopsy; C. left lobe liver biopsy CPT Code(s): 79268 X 1; 09060 X 2; 47350 X 4 Additional Information: FINAL DIAGNOSIS: A. [...] parenchyma, which is entirely submitted in cassette [id number] A1. (NAA Mckeon/johnnie) B. Received in formalin, labeled with the patient's name Blair Gilbert and right lobe liver biopsy are two green-brown tissue cores measuring 1.8 and 2.0 cm in length, each with a diameter of 0.1 cm, which are entirely submitted between blue biopsy sponges in cassette [id number] B1-B2. (NAA Mckeon/nereida) C. Received in formalin, labeled with the patient's name Blair Gilbert and left lobe liver biopsy are two green-georges tissue cores measuring 1.2 and 1.4 cm in length, each with a diameter of 0.1 cm, which are entirely submitted between blue biopsy sponges in cassette [id number] C1-C2. (NAA Mckeon/ns) Microscopic Description: I, the attending pathologist, have personally reviewed all prosector/resident work and pathology slides to determine final diagnosis. Control Materials Reacted Appropriately. Final Diagnosis performed by CLARE FALL MD Pathologist Electronically signed 10/31/2024 01:07:09 PM The Pathologist signing this report is located at [facility], [address] [place] [address], [id number], , CLIA ID: [id number] ADDENDUM: A. Kidney, allograft, baseline, wedge biopsy: [...] at [facility], [address] [place] [address], [id number], , CLIA ID: [id number] us Kemar Sahni MD PATHOLOGY/CYTOLOGY ORDERABL ES Edited Result - Final [facility] * Anaerobic culture (10/27/2024 2:15 AM EDT) Culture Result No Anaerobes Isolated in 5 Days [facility] Fluid SPECIMEN FROM KIDNEY / Unknown 10/27/2024 2:15 AM EDT 10/27/2024 4:24 AM EDT [facility] - 10/31/2024 11:43 AM EDT 1) perfusate us Semaj Mcnair III, MD MICROBIOLOGY - GENE RAL ORDERABLES Final Result Performing Organization Address [facility] Co de Phone Number [facility] [address] [place] [address]. [address] * Routine Culture plus Stain (10/27/2024 2:15 AM EDT) [facility] Gram Stain Result No Polymorphonuclear Leukocytes Seen [facility] Gram Stain Result No Organisms Seen; [facility] Culture Result No Growth After 3 Days [facility] Fluid SPECIMEN FROM KIDNEY / Unknown 10/27/2024 2:15 AM EDT 10/27/2024 4:24 AM EDT Narrative [facility] - 10/30/2024 9:26 AM EDT 1) perfusate us Semaj Mcnair III, MD MICROBIOLOGY - GENE RAL ORDERABLES Final Result Performing Organization Address [facility] de Phone Number [facility] [address] [facility]. [address] * Transfuse Platelets Transfusion Rate: Per dept routine (10/27/2024 1:52 AM EDT) us John Pina MD NURSING TREATMENT ORDERABLES - BLOOD ADMIN Final Result Performing Organization Address [facility] de Phone Number EXTERNAL * Transfuse Platelets Transfusion Rate: Per dept routine, 1 Units (10/27/2024 1:52 AM EDT) us John Pina MD NURSING TREATMENT ORDERABLES - BLOOD ADMIN Final Result Performing Organization Address [facility] de Phone Number EXTERNAL * (ABNORMAL) TEG-Standard Global Hemostasis (Rapid TEG with Heparin Effect, Contains a Baseline TEG) (10/27/2024 1:51 AM EDT) Citrated Kaolin Reaction Time (TEGHEPARINASE) 10.6(H) 4.6 - 9.1 minutes 10/27/2024 2:44 AM EDT [facility] Citrated Rapid Teg Maximum Amplitude (TEGHEPARINASE) 42.3(L) 52.0 - 70.0 mm 10/27/2024 2:44 AM EDT [facility] Citrated Functional Fibrinogen Maximum Amplitude (TEGHEPARINASE) 15.0 15.0 - 32.0 mm 10/27/2024 2:44 AM EDT [facility] Citrated Kaolin W/Heparinase Reaction Time (TEGHEPARINASE) 10.5(H) 4.3 - 8.3 minutes 10/27/2024 2:44 AM EDT [facility] Citrated Kaolin K-Time (TEGHEPARINASE) 2.9(A) 0.8 - 2.1 minutes 10/27/2024 2:44 AM EDT [facility] Citrated Kaolin Angle (TEGHEPARINASE) 60.4(A) 63.0 - 78.0 degrees 10/27/2024 2:44 AM EDT [facility] Citrated Kaolin Maximum Amplitude (TEGHEPARINASE) 42.9(L) 52.0 - 69.0 mm 10/27/2024 2:44 AM EDT [facility] Citrated Functional Fibrinogen- Fibrinogen Level (TEGHEPARINASE) 273.7(L) 278.0 - 581.0 mg/dL 10/27/2024 2:44 AM EDT [facility] Whole Blood (Citrate) 10/27/2024 1:51 AM EDT 10/27/2024 2:03 AM EDT us John Pina MD LAB BLOOD ORDERABLES Final Resu lt [facility] [address] [place] [address], [facility] * (ABNORMAL) POC Glucose Monitoring Device (10/27/2024 1:50 AM EDT) POC Glucose Monitoring Device 121(H) 70 - 100 mg/dL 10/27/2024 1:51 AM EDT [facility] Blood 10/27/2024 1:50 AM EDT 10/27/2024 1:51 AM EDT us Semaj Mcnair III, MD POINT OF CARE TEST ORDERABLES Final Result Performing Organization Address City/[facility]/ZIP Co de Phone Number [facility] [address] [place] [address], [facility] * Transfuse Cryoprecipitate Transfusion Rate: Per dept routine (10/27/2024 1:25 AM EDT) us John Pina MD NURSING TREATMENT ORDERABLES - BLOOD ADMIN Final Result Performing Organization Address City/[facility] Co de Phone Number EXTERNAL * Transfuse Cryoprecipitate Transfusion Rate: Per dept routine, 1 Units (10/27/2024 1:25 AM EDT) us John Pina MD NURSING TREATMENT ORDERABLES - BLOOD ADMIN Final Result Performing Organization Address City/[facility]/ZIP Co de Phone Number EXTERNAL * (ABNORMAL) POC Glucose Monitoring Device (10/27/2024 1:21 AM EDT) POC Glucose Monitoring Device 123(H) 70 - 100 mg/dL 10/27/2024 1:22 AM EDT [facility] Blood 10/27/2024 1:21 AM EDT 10/27/2024 1:21 AM EDT us Semaj Mcnair III, MD POINT OF CARE TEST ORDERABLES Final Result Performing Organization Address [facility] Co de Phone Number [facility] [address] [place] [address], [facility] * Transfuse Fresh Frozen Plasma Transfusion Rate: Per dept routine (10/27/2024 1:03 AM EDT) us John Pina MD NURSING TREATMENT ORDERABLES - BLOOD ADMIN Final Result Performing Organization Address City/[facility]/ZIP Co de Phone Number EXTERNAL * Transfuse Fresh Frozen Plasma Transfusion Rate: Per dept routine, 1 Units (10/27/2024 1:03 AM EDT) us John Pina MD NURSING TREATMENT ORDERABLES - BLOOD ADMIN Final Result EXTERNAL * Calcium Free, Serum (10/27/2024 12:13 AM EDT) Free Calcium, Ser 5.20 4.40 - 5.40 mg/dL 10/27/2024 12:37 AM EDT [facility] Comment:Free calcium levels vary inversely with pH by approximately 5% for each 0.1 unit of pH change. Assay results have been normalized to pH = 7.40. Serum 10/27/2024 12:1 3 AM EDT 10/27/2024 12:29 AM EDT Narrative [facility] - 10/27/2024 12:37 AM EDT This [...] Resu lt Performing Organization Address [facility] Co de Phone Number [facility] [address] * (ABNORMAL) Blood Gas, Arterial, STAT (10/27/2024 12:13 AM EDT) O2 Sat, Arterial 100 10/27/2024 12:23 AM EDT [facility] FIO2 30 10/27/2024 12:23 AM EDT [facility] pH, Arterial 7.32(L) 7.35 - 7.45 10/27/2024 12:23 AM EDT [facility] pCO2, Arterial 37 35 - 45 mm Hg 10/27/2024 12:23 AM EDT [facility] pO2, Arterial 137(H) 80 - 100 mm Hg 10/27/2024 12:23 AM EDT [facility] HCO3, Arterial 20(L) 22 - 26 mmol/L 10/27/2024 12:23 AM EDT [facility] CO2 Content,Arteri al 20(L) 23 - 27 mmol/L 10/27/2024 12:23 AM EDT [facility] Base Excess, Arterial -6.4(L) -2.0 - 3.0 mmol/L 10/27/2024 12:23 AM EDT [facility] %HBO2, Arterial 96.2 95.0 - 98.0 % 10/27/2024 12:23 AM EDT [facility] Carboxyhemoglo bin, Arterial 1.9 % 10/27/2024 12:23 AM EDT [facility] Comment: CARBOXYHEMOGLOBIN (CO) REFERENCE RANGES: Non-Smokers: <2 % Smokers: <8 % TOXIC: >20 % Methemoglobin, Arterial 1.5 0.0 - 1.5 % 10/27/2024 12:23 AM EDT [facility] Reduced hemoglobin, Arterial 0.4 0.0 - 5.0 % 10/27/2024 12:23 AM EDT [facility] Blood, Arterial 10/27/2024 1 2:13 AM EDT 10/27/2024 12:18 AM EDT us John Pina MD LAB BLOOD ORDERABLES Final Resu lt [facility] [address] [place] [address], [facility] * (ABNORMAL) TEG-Bypass/ECMO/Liver HN (Factor function, Platelet/Fibrin Clot Strength w/Clot Breakdown, Heparinase In All Channels) (10/27/2024 12:13 AM EDT) [facility] Citrated Kaolin Reaction Time (TEGECMOLIVER) 9.1 4.6 - 9.1 minutes 10/27/2024 1:43 AM EDT [facility] Citrated Kaolin W/Heparinase Reaction Time (TEGECMOLIVER) 9.7(H) 4.3 - 8.3 minutes 10/27/2024 1:43 AM EDT [facility] Citrated Kaolin Maximum Amplitude (TEGECMOLIVER) <40.0(L) 52.0 - 69.0 mm 10/27/2024 1:43 AM EDT [facility] Citrated Functional Fibrinogen W/Heparinase Maximum Amplitude(TEGEC MOLIVER) 11.9(L) 15.0 - 34.0 mm 10/27/2024 1:43 AM EDT [facility] Citrated Rapid Teg W/Heparinase Maximum Amplitude (TEGECMOLIVER) 31.6(L) 53.0 - 69.0 mm 10/27/2024 1:43 AM EDT [facility] Citrated Kaolin w/Heparinase Percent Lysis (TEGECMOLIVER) 0.0 0.0 - 3.2 % 10/27/2024 1:43 AM EDT [facility] Whole Blood (Citrate) 10/27/2024 12:13 AM EDT 10/27/2024 12:18 AM EDT Kemar Sahni MD LAB BLOOD ORDERABLES Final Result Performing Organization Address [facility] Co de Phone Number [facility] [address] [place] [address]. [address] * (ABNORMAL) Lactic Acid (10/27/2024 12:13 AM EDT) Lactate 0.2(L) 0.5 - 2.2 mmol/L 10/27/2024 12:59 AM EDT [facility] Plasma 10/27/2024 12:1 3 AM EDT 10/27/2024 12:31 AM EDT Kemar Sahni MD LAB BLOOD ORDERABLES Final Result [facility] [address] * Magnesium (10/27/2024 12:13 AM EDT) Magnesium 1.8 1.5 - 2.5 mg/dL 10/27/2024 12:52 AM EDT [facility] Plasma 10/27/2024 12:1 3 AM EDT 10/27/2024 12:29 AM EDT Kemar Sahni MD LAB BLOOD ORDERABLES Final Result [facility] [address] [place], [place] [id number] [place] [address] * (ABNORMAL) Hepatic Function Panel (10/27/2024 12:13 AM EDT) Total Bilirubin 1.6(H) 0.0 - 1.5 mg/dL 10/27/2024 12:52 AM EDT [facility] Bilirubin, Direct 1.17(H) 0.00 - 0.40 mg/dL 10/27/2024 12:52 AM EDT [facility] AST 157(H) 13 - 39 U/L 10/27/2024 12:52 AM EDT [facility] ALT 261(H) 7 - 52 U/L 10/27/2024 12:52 AM EDT [facility] Alkaline Phosphatase 26(L) 36 - 125 U/L 10/27/2024 12:52 AM EDT [facility] Total Protein 3.8(L) 6.4 - 8.9 g/dL 10/27/2024 12:52 AM EDT [facility] Albumin 2.8(L) 3.5 - 5.7 g/dL 10/27/2024 12:52 AM EDT [facility] Bilirubin, Indirect 0.43 0.00 - 1.10 mg/dL 10/27/2024 12:52 AM EDT [facility] Plasma 10/27/2024 12:1 3 AM EDT 10/27/2024 12:29 AM EDT us Kemar Sahni MD LAB BLOOD ORDERABLES Final Result [facility] [address] [place], [place] [address] [place] [address] * (ABNORMAL) Protime-INR (10/27/2024 12:13 AM EDT) Protime 18.6(H) 12.1 - 15.1 seconds 10/27/2024 12:43 AM EDT [facility] INR 1.5(H) 0.9 - 1.1 10/27/2024 12:43 AM EDT [facility] Comment: RECOMMENDED THERAPEUTIC RANGES USING INR : Stable oral anticoagulant therapy: 2.0 - 3.0 Mechanical prosthetic heart valve: 2.5 - 3.5 Recurrent acute myocardial infarction: 2.5 - 3.5 Plasma 10/27/2024 12:1 3 AM EDT 10/27/2024 12:29 AM EDT us Kemar Sahni MD LAB BLOOD ORDERABLES Final Result [facility] [address] [address], [facility] * (ABNORMAL) CBC (10/27/2024 12:13 AM EDT) WBC 5.0 3.8 - 10.8 10E3/uL 10/27/2024 12:59 AM EDT [facility] RBC 2.70(L) 4.20 - 5.80 10E6/uL 10/27/2024 12:59 AM EDT [facility] Hemoglobin 8.5(L) 13.2 - 17.1 g/dL 10/27/2024 12:59 AM EDT [facility] Hematocrit 23.9(L) 38.5 - 50.0 % 10/27/2024 12:59 AM EDT [facility] MCV 88.5 80.0 - 100.0 fL 10/27/2024 12:59 AM EDT [facility] MCH 31.5 27.0 - 33.0 pg 10/27/2024 12:59 AM EDT [facility] MCHC 35.6 32.0 - 36.0 g/dL 10/27/2024 12:59 AM EDT [facility] RDW 20.6(H) 11.0 - 15.0 % 10/27/2024 12:59 AM EDT [facility] Platelets 35(L) 140 - 400 10E3/uL 10/27/2024 12:59 AM EDT [facility] Comment: CNV Specimen checked for clots. None detected. MPV 7.6 7.5 - 11.5 fL 10/27/2024 12:59 AM EDT [facility] Whole Blood 10/27/2024 12:1 3 AM EDT 10/27/2024 12:29 AM EDT Kemar Sahni MD LAB BLOOD ORDERABLES Final Result [facility] [address] [place], [place] [address] * (ABNORMAL) Renal Function Panel w/EGFR (10/27/2024 12:13 AM EDT) Sodium 141 133 - 146 mmol/L 10/27/2024 12:52 AM EDT [facility] Potassium 3.2(L) 3.5 - 5.3 mmol/L 10/27/2024 12:52 AM EDT [facility] Chloride 109 98 - 110 mmol/L 10/27/2024 12:52 AM EDT [facility] CO2 21 21 - 33 mmol/L 10/27/2024 12:52 AM EDT [facility] Anion Gap 11 3 - 16 mmol/L 10/27/2024 12:52 AM EDT [facility] BUN 64(H) 7 - 25 mg/dL 10/27/2024 12:52 AM EDT [facility] Creatinine 2.58(H) 0.60 - 1.30 mg/dL 10/27/2024 12:52 AM EDT [facility] Glucose 126(H) 70 - 100 mg/dL 10/27/2024 12:52 AM EDT [facility] Calcium 8.9 8.6 - 10.3 mg/dL 10/27/2024 12:52 AM EDT [facility] Phosphorus 5.3(H) 2.1 - 4.7 mg/dL 10/27/2024 12:52 AM EDT [facility] Albumin 2.8(L) 3.5 - 5.7 g/dL 10/27/2024 12:52 AM EDT [facility] Osmolality, Calculated 312(H) 278 - 305 mOsm/kg 10/27/2024 12:52 AM EDT [facility] EGFR 31 10/27/2024 12:52 AM EDT [facility] Comment:As of 2021, the estimated GFR [...] BLOOD ORDERABLES Final Result Performing Organization Address City/[facility]/ZIP Co de Phone Number [facility] [address] [facility]. [address] * (ABNORMAL) POC Glucose Monitoring Device (10/27/2024 12:08 AM EDT) POC Glucose Monitoring Device 121(H) 70 - 100 mg/dL 10/27/2024 12:08 AM EDT [facility] Blood 10/27/2024 12:0 8 AM EDT 10/27/2024 12:08 AM EDT Semaj Mcnair III, MD POINT OF CARE TEST ORDERABLES Final Result Performing Organization Address City/[facility]/ZIP Co de Phone Number [facility] [address] [facility]. [address] * (ABNORMAL) POC Glucose Monitoring Device (10/26/2024 11:15 PM EDT) POC Glucose Monitoring Device 120(H) 70 - 100 mg/dL 10/26/2024 11:15 PM EDT [facility] Blood 10/26/2024 11:1 5 PM EDT 10/26/2024 11:15 PM EDT Semaj Mcnair III, MD POINT OF CARE TEST ORDERABLES Final Result [facility] [address] [place] [address], [facility] * (ABNORMAL) TEG-Bypass/ECMO/Liver HN (Factor function, Platelet/Fibrin Clot Strength w/Clot Breakdown, Heparinase In All Channels) (10/26/2024 10:36 PM EDT) [facility] Citrated Kaolin Reaction Time (TEGECMOLIVER) 10.0(H) 4.6 - 9.1 minutes 10/26/2024 11:53 PM EDT [facility] Citrated Kaolin W/Heparinase Reaction Time (TEGECMOLIVER) 10.2(H) 4.3 - 8.3 minutes 10/26/2024 11:53 PM EDT [facility] Citrated Kaolin Maximum Amplitude (TEGECMOLIVER) <40.0(L) 52.0 - 69.0 mm 10/26/2024 11:53 PM EDT [facility] Citrated Functional Fibrinogen W/Heparinase Maximum Amplitude(TEGEC MOLIVER) 11.3(L) 15.0 - 34.0 mm 10/26/2024 11:53 PM EDT [facility] Citrated Rapid Teg W/Heparinase Maximum Amplitude (TEGECMOLIVER) 41.8(L) 53.0 - 69.0 mm 10/26/2024 11:53 PM EDT [facility] Citrated Kaolin w/Heparinase Percent Lysis (TEGECMOLIVER) 0.0 0.0 - 3.2 % 10/26/2024 11:53 PM EDT [facility] Whole Blood (Citrate) 10/26/2024 10:36 PM EDT 10/26/2024 10:43 PM EDT Kemar Sahni MD LAB BLOOD ORDERABLES Final Result Performing Organization Address City/[facility]/ZIP Co de Phone Number [facility] [address] [facility]. [address] * (ABNORMAL) POC Glucose Monitoring Device (10/26/2024 10:14 PM EDT) POC Glucose Monitoring Device 124(H) 70 - 100 mg/dL 10/26/2024 11:11 PM EDT [facility] Blood 10/26/2024 10:1 4 PM EDT 10/26/2024 11:11 PM EDT us Semaj Mcnair III, MD POINT OF CARE TEST ORDERABLES Final Result Performing Organization Address [facility] Co de Phone Number [facility] [address] [facility]. [address] * (ABNORMAL) POC Glucose Monitoring Device (10/26/2024 9:16 PM EDT) POC Glucose Monitoring Device 119(H) 70 - 100 mg/dL 10/26/2024 9:18 PM EDT [facility] Blood 10/26/2024 9:16 PM EDT 10/26/2024 9:18 PM EDT us Semaj Mcnair III, MD POINT OF CARE TEST ORDERABLES Final Result Performing Organization Address City/[facility] Co de Phone Number [facility] [address] [facility] * (ABNORMAL) POC Glucose Monitoring Device (10/26/2024 8:05 PM EDT) POC Glucose Monitoring Device 113(H) 70 - 100 mg/dL 10/26/2024 8:06 PM EDT [facility] Blood 10/26/2024 8:05 PM EDT 10/26/2024 8:06 PM EDT us Semaj Mcnair III, MD POINT OF CARE TEST ORDERABLES Final Result [facility] [address] * (ABNORMAL) POC Glucose Monitoring Device (10/26/2024 7:02 PM EDT) POC Glucose Monitoring Device 111(H) 70 - 100 mg/dL 10/26/2024 7:03 PM EDT [facility] Blood 10/26/2024 7:02 PM EDT 10/26/2024 7:03 PM EDT us Semaj Mcnair III, MD POINT OF CARE TEST ORDERABLES Final Result Performing Organization Address [facility] Co de Phone Number [facility] [address] [facility] * Transfuse Cryoprecipitate Transfusion Rate: Per dept routine (10/26/2024 6:39 PM EDT) us John Pina MD NURSING TREATMENT ORDERABLES - BLOOD ADMIN Final Result Performing Organization Address [facility] Co de Phone Number EXTERNAL * Transfuse Cryoprecipitate Transfusion Rate: Per dept routine, 1 Units (10/26/2024 6:39 PM EDT) us John Pina MD NURSING TREATMENT ORDERABLES - BLOOD ADMIN Final Result Performing Organization Address [facility] Co de Phone Number EXTERNAL * (ABNORMAL) POC Glucose Monitoring Device (10/26/2024 6:33 PM EDT) POC Glucose Monitoring Device 110(H) 70 - 100 mg/dL 10/26/2024 6:34 PM EDT [facility] Blood 10/26/2024 6:33 PM EDT 10/26/2024 6:34 PM EDT us Semaj Mcnair III, MD POINT OF CARE TEST ORDERABLES Final Result Performing Organization Address [facility] Co de Phone Number [facility] [address] * Transfuse Cryoprecipitate Transfusion Rate: Per dept routine (10/26/2024 6:22 PM EDT) John Pina MD NURSING TREATMENT ORDERABLES - BLOOD ADMIN Final Result Performing Organization Address [facility] Co de Phone Number EXTERNAL * Transfuse Cryoprecipitate Transfusion Rate: Per dept routine, 1 Units (10/26/2024 6:22 PM EDT) John Pina MD NURSING TREATMENT ORDERABLES - BLOOD ADMIN Final Result Performing Organization Address City/[facility] Co de Phone Number EXTERNAL * (ABNORMAL) POC Glucose Monitoring Device (10/26/2024 6:17 PM EDT) POC Glucose Monitoring Device 104(H) 70 - 100 mg/dL 10/26/2024 6:18 PM EDT [facility] Blood 10/26/2024 6:1 7 PM EDT 10/26/2024 6:18 PM EDT Semaj Mcnair III, MD POINT OF CARE TEST ORDERABLES Final Result Performing Organization Address [facility] de Phone Number [facility] [address] * (ABNORMAL) POC Glucose Monitoring Device (10/26/2024 4:58 PM EDT) POC Glucose Monitoring Device 115(H) 70 - 100 mg/dL 10/26/2024 4:59 PM EDT [facility] Blood 10/26/2024 4:58 PM EDT 10/26/2024 4:58 PM EDT Semaj Mcnair III, MD POINT OF CARE TEST ORDERABLES Final Result Performing Organization Address [facility] Co de Phone Number [facility] [address] * (ABNORMAL) Calcium Free, Serum (10/26/2024 4:42 PM EDT) Free Calcium, Ser 5.67(H) 4.40 - 5.40 mg/dL 10/26/2024 4:55 PM EDT [facility] Comment:Free calcium levels vary inversely with pH by approximately 5% for each 0.1 unit of pH change. Assay results have been normalized to pH = 7.40. Serum 10/26/2024 4:42 PM EDT 10/26/2024 4:47 PM EDT Narrative [facility] - 10/26/2024 4:55 PM EDT This [...] Resu lt Performing Organization Address [facility]/ZIP Co de Phone Number [address] * Repeat Crossmatch (Recipient Sample) (10/26/2024 4:42 PM EDT) Repeat Cx - Recipient The request and specimen(s) for this test have been received and transported to the [facility] at [address] [place] [address]. The [facility] [place] will report results directly to the client. 10/26/2024 4:49 PM EDT [facility] Whole Blood 10/26/2024 4:42 PM EDT 10/26/2024 4:49 PM EDT Narrative [facility] - 10/26/2024 4:49 PM EDT To be sent to [facility] for Donor UNOS#[id number] cross match with Blair Gilbert Sveta Judge MD LAB BLOOD ORDERABLES Final Resu lt Performing Organization Address City/[facility]/ZIP Co de Phone Number [facility] [address] * (ABNORMAL) Lactic Acid (10/26/2024 4:42 PM EDT) Lactate 0.3(L) 0.5 - 2.2 mmol/L 10/26/2024 5:19 PM EDT [facility] Plasma 10/26/2024 4:42 PM EDT 10/26/2024 4:47 PM EDT Kemar Sahni MD LAB BLOOD ORDERABLES Final Result Performing Organization Address [facility]/ZIP Co de Phone Number [facility] [address] [place] [address]. [address] * Magnesium (10/26/2024 4:42 PM EDT) Pathologist [facility] Magnesium 2.0 1.5 - 2.5 mg/dL 10/26/2024 5:24 PM EDT [facility] Plasma 10/26/2024 4:42 PM EDT 10/26/2024 4:47 PM EDT Kemar Sahni MD LAB BLOOD ORDERABLES Final Result Performing Organization Address [facility] Co de Phone Number [facility] [address] [place] [address]. [address] * (ABNORMAL) Hepatic Function Panel (10/26/2024 4:42 PM EDT) Total Bilirubin 2.3(H) 0.0 - 1.5 mg/dL 10/26/2024 5:24 PM EDT [facility] Bilirubin, Direct 1.85(H) 0.00 - 0.40 mg/dL 10/26/2024 5:24 PM EDT [facility] AST 374(H) 13 - 39 U/L 10/26/2024 5:24 PM EDT [facility] ALT 458(H) 7 - 52 U/L 10/26/2024 5:24 PM EDT [facility] Alkaline Phosphatase 39 36 - 125 U/L 10/26/2024 5:24 PM EDT [facility] Total Protein 3.8(L) 6.4 - 8.9 g/dL 10/26/2024 5:24 PM EDT [facility] Albumin 3.0(L) 3.5 - 5.7 g/dL 10/26/2024 5:24 PM EDT [facility] Bilirubin, Indirect 0.45 0.00 - 1.10 mg/dL 10/26/2024 5:24 PM EDT [facility] Plasma 10/26/2024 4:42 PM EDT 10/26/2024 4:47 PM EDT Kemar Sahni MD LAB BLOOD ORDERABLES Final Result Performing Organization Address City/[facility] Co de Phone Number [facility] [address] * (ABNORMAL) Protime-INR (10/26/2024 4:42 PM EDT) Protime 20.3(H) 12.1 - 15.1 seconds 10/26/2024 5:12 PM EDT [facility] INR 1.7(H) 0.9 - 1.1 10/26/2024 5:12 PM EDT [facility] Comment: RECOMMENDED THERAPEUTIC RANGES USING INR : Stable oral anticoagulant therapy: 2.0 - 3.0 Mechanical prosthetic heart valve: 2.5 - 3.5 Recurrent acute myocardial infarction: 2.5 - 3.5 Plasma 10/26/2024 4:42 PM EDT 10/26/2024 4:47 PM EDT Kemar Sahni MD LAB BLOOD ORDERABLES Final Result [facility] [address] * (ABNORMAL) CBC (10/26/2024 4:42 PM EDT) WBC 10.0 3.8 - 10.8 10E3/uL 10/26/2024 5:00 PM EDT [facility] RBC 3.44(L) 4.20 - 5.80 10E6/uL 10/26/2024 5:00 PM EDT [facility] Hemoglobin 10.5(L) 13.2 - 17.1 g/dL 10/26/2024 5:00 PM EDT [facility] Hematocrit 30.2(L) 38.5 - 50.0 % 10/26/2024 5:00 PM EDT [facility] MCV 87.7 80.0 - 100.0 fL 10/26/2024 5:00 PM EDT [facility] MCH 30.6 27.0 - 33.0 pg 10/26/2024 5:00 PM EDT [facility] MCHC 34.8 32.0 - 36.0 g/dL 10/26/2024 5:00 PM EDT [facility] RDW 20.1(H) 11.0 - 15.0 % 10/26/2024 5:00 PM EDT [facility] Platelets 48(L) 140 - 400 10E3/uL 10/26/2024 5:00 PM EDT [facility] Comment:Specimen checked for clots. None detected. MPV 7.9 7.5 - 11.5 fL 10/26/2024 5:00 PM EDT [facility] Whole Blood 10/26/2024 4:42 PM EDT 10/26/2024 4:47 PM EDT us Kemar Sahni MD LAB BLOOD ORDERABLES Final Result [facility] [address] [id number] * (ABNORMAL) Renal Function Panel w/EGFR (10/26/2024 4:42 PM EDT) Sodium 142 133 - 146 mmol/L 10/26/2024 5:24 PM EDT [facility] Potassium 3.3(L) 3.5 - 5.3 mmol/L 10/26/2024 5:24 PM EDT [facility] Chloride 109 98 - 110 mmol/L 10/26/2024 5:24 PM EDT [facility] CO2 23 21 - 33 mmol/L 10/26/2024 5:24 PM EDT [facility] Anion Gap 10 3 - 16 mmol/L 10/26/2024 5:24 PM EDT [facility] BUN 63(H) 7 - 25 mg/dL 10/26/2024 5:24 PM EDT [facility] Creatinine 2.85(H) 0.60 - 1.30 mg/dL 10/26/2024 5:24 PM EDT [facility] Glucose 127(H) 70 - 100 mg/dL 10/26/2024 5:24 PM EDT [facility] Calcium 8.9 8.6 - 10.3 mg/dL 10/26/2024 5:24 PM EDT [facility] Phosphorus 4.4 2.1 - 4.7 mg/dL 10/26/2024 5:24 PM EDT [facility] Albumin 3.0(L) 3.5 - 5.7 g/dL 10/26/2024 5:24 PM EDT [facility] Osmolality, Calculated 314(H) 278 - 305 mOsm/kg 10/26/2024 5:24 PM EDT [facility] EGFR 28 10/26/2024 5:24 PM EDT [facility] Comment:As of 2021, the estimated GFR [...] Sahni MD LAB BLOOD ORDERABLES Final Result [facility] [address] * (ABNORMAL) POC Glucose Monitoring Device (10/26/2024 3:54 PM EDT) POC Glucose Monitoring Device 126(H) 70 - 100 mg/dL 10/26/2024 3:55 PM EDT [facility] Blood 10/26/2024 3:54 PM EDT 10/26/2024 3:55 PM EDT Semaj Mcnair III, MD POINT OF CARE TEST ORDERABLES Final Result [facility] [address] * (ABNORMAL) POC Glucose Monitoring Device (10/26/2024 3:06 PM EDT) POC Glucose Monitoring Device 144(H) 70 - 100 mg/dL 10/26/2024 3:14 PM EDT [facility] Blood 10/26/2024 3:06 PM EDT 10/26/2024 3:13 PM EDT Semaj Mcnair III, MD POINT OF CARE TEST ORDERABLES Final Result [facility] [address] [facility]. [address] * (ABNORMAL) TEG-Bypass/ECMO/Liver HN (Factor function, Platelet/Fibrin Clot Strength w/Clot Breakdown, Heparinase In All Channels) (10/26/2024 3:03 PM EDT) Citrated Kaolin Reaction Time (TEGECMOLIVER) 8.2 4.6 - 9.1 minutes 10/26/2024 4:43 PM EDT [facility] Citrated Kaolin W/Heparinase Reaction Time (TEGECMOLIVER) 8.2 4.3 - 8.3 minutes 10/26/2024 4:43 PM EDT [facility] Citrated Kaolin Maximum Amplitude (TEGECMOLIVER) 41.7(L) 52.0 - 69.0 mm 10/26/2024 4:43 PM EDT [facility] Citrated Functional Fibrinogen W/Heparinase Maximum Amplitude(TEGEC MOLIVER) 11.4(L) 15.0 - 34.0 mm 10/26/2024 4:43 PM EDT [facility] Citrated Rapid Teg W/Heparinase Maximum Amplitude (TEGECMOLIVER) 38.6(L) 53.0 - 69.0 mm 10/26/2024 4:43 PM EDT [facility] Citrated Kaolin w/Heparinase Percent Lysis (TEGECMOLIVER) 0.0 0.0 - 3.2 % 10/26/2024 4:43 PM EDT [facility] Whole Blood (Citrate) 10/26/2024 3:03 PM EDT 10/26/2024 3:10 PM EDT Jani Mooney MD LAB BLOOD ORDERABLES Final Resul t Performing Organization Address City/[facility] Co de Phone Number [facility] [address] * ECG 12 lead (MUSE) (10/26/2024 2:19 PM EDT) 10/26/2024 2:19 PM EDT Narrative MUSE - 10/27/2024 10:09 AM EDT Ventricular Rate: 105 BPM Atrial Rate: 105 BPM P-R Interval: 128 ms QRS Duration: 94 ms QT: 474 ms QTc: 626 ms R [place]: -37 degrees T [place]: 35 degrees Diagnosis Line: Critical Test Result: Long QTc ^ SINUS TACHYCARDIA ^ LEFT AXIS DEVIATION, LEFT ANTERIOR HEMIBLOCK ^ PROLONGED QT ^ ABNORMAL ECG ^ ^ Confirmed by MD HA, [facility] ([id number]) on 10/27/2024 10:09:25 AM Quinten Best MD ECG ORDERABLES Final Result Performing Organization Address City/[facility] Co de Phone Number MUSE * (ABNORMAL) POC Glucose Monitoring Device (10/26/2024 2:00 PM EDT) POC Glucose Monitoring Device 183(H) 70 - 100 mg/dL 10/26/2024 2:01 PM EDT [facility] Blood 10/26/2024 2:00 PM EDT 10/26/2024 2:01 PM EDT us Semaj Mcnair III, MD POINT OF CARE TEST ORDERABLES Final Result Performing Organization Address [facility] Co de Phone Number [facility] [address] [facility]. [address] * (ABNORMAL) POC Glucose Monitoring Device (10/26/2024 1:05 PM EDT) POC Glucose Monitoring Device 212(H) 70 - 100 mg/dL 10/26/2024 1:06 PM EDT [facility] Blood 10/26/2024 1:05 PM EDT 10/26/2024 1:06 PM EDT Semaj Mcnair III, MD POINT OF CARE TEST ORDERABLES Final Result Performing Organization Address [facility] Co de Phone Number [facility] [address] [facility]. [address] * Transfuse Cryoprecipitate Has consent been obtained? Yes; Transfusion Rate: Per dept routine (10/26/2024 12:25 PM EDT) us Shay Sifuentes MD NURSING TREATMENT ORDERABLES - BLOOD ADMIN Final Result Performing Organization Address City/[facility]/ZIP Co de Phone Number EXTERNAL * Transfuse Cryoprecipitate Has consent been obtained? Yes; Transfusion Rate: Per dept routine, 1 Units (10/26/2024 12:25 PM EDT) us Shay Sifuentes MD NURSING TREATMENT ORDERABLES - BLOOD ADMIN Final Result Performing Organization Address City/[facility] Co de Phone Number EXTERNAL * (ABNORMAL) POC Glucose Monitoring Device (10/26/2024 12:06 PM EDT) POC Glucose Monitoring Device 226(H) 70 - 100 mg/dL 10/26/2024 12:07 PM EDT [facility] Blood 10/26/2024 12:0 6 PM EDT 10/26/2024 12:07 PM EDT Semaj Mcnair III, MD POINT OF CARE TEST ORDERABLES Final Result Performing Organization Address [facility] Co de Phone Number [facility] [address] [facility]. [address] * Transfuse Cryoprecipitate Transfusion Rate: Per dept routine (10/26/2024 12:01 PM EDT) John Pina MD NURSING TREATMENT ORDERABLES - BLOOD ADMIN Final Result Performing Organization Address [facility] Co de Phone Number EXTERNAL * Transfuse Cryoprecipitate Transfusion Rate: Per dept routine, 1 Units (10/26/2024 12:01 PM EDT) John Pina MD NURSING TREATMENT ORDERABLES - BLOOD ADMIN Final Result Performing Organization Address [facility] Co de Phone Number EXTERNAL * Lactic Acid (10/26/2024 10:48 AM EDT) Lactate 1.2 0.5 - 2.2 mmol/L 10/26/2024 11:27 AM EDT [facility] Plasma 10/26/2024 10:4 8 AM EDT 10/26/2024 10:53 AM EDT Kemar Sahni MD LAB BLOOD ORDERABLES Final Result Performing Organization Address [facility] Co de Phone Number [facility] [address] [facility]. [address] * Magnesium (10/26/2024 10:48 AM EDT) Magnesium 2.0 1.5 - 2.5 mg/dL 10/26/2024 11:26 AM EDT [facility] Plasma 10/26/2024 10:4 8 AM EDT 10/26/2024 10:53 AM EDT Kemar Sahni MD LAB BLOOD ORDERABLES Final Result [facility] [address] [place] [address], [facility] * (ABNORMAL) Hepatic Function Panel (10/26/2024 10:48 AM EDT) Total Bilirubin 5.9(H) 0.0 - 1.5 mg/dL 10/26/2024 11:26 AM EDT [facility] Bilirubin, Direct 4.74(H) 0.00 - 0.40 mg/dL 10/26/2024 11:26 AM EDT [facility] AST 872(H) 13 - 39 U/L 10/26/2024 11:26 AM EDT [facility] ALT 736(H) 7 - 52 U/L 10/26/2024 11:26 AM EDT [facility] Alkaline Phosphatase 56 36 - 125 U/L 10/26/2024 11:26 AM EDT [facility] Total Protein 3.5(L) 6.4 - 8.9 g/dL 10/26/2024 11:26 AM EDT [facility] Albumin 2.5(L) 3.5 - 5.7 g/dL 10/26/2024 11:26 AM EDT [facility] Bilirubin, Indirect 1.16(H) 0.00 - 1.10 mg/dL 10/26/2024 11:26 AM EDT [facility] Plasma 10/26/2024 10:4 8 AM EDT 10/26/2024 10:53 AM EDT Kemar Sahni MD LAB BLOOD ORDERABLES Final Result [facility] [address] [place] [address], [facility] * (ABNORMAL) Protime-INR (10/26/2024 10:48 AM EDT) Protime 23.0(H) 12.1 - 15.1 seconds 10/26/2024 11:26 AM EDT [facility] INR 2.0(H) 0.9 - 1.1 10/26/2024 11:26 AM EDT [facility] Comment: RECOMMENDED THERAPEUTIC RANGES USING INR : Stable oral anticoagulant therapy: 2.0 - 3.0 Mechanical prosthetic heart valve: 2.5 - 3.5 Recurrent acute myocardial infarction: 2.5 - 3.5 Plasma 10/26/2024 10:4 8 AM EDT 10/26/2024 10:53 AM EDT Kemar Sahni MD LAB BLOOD ORDERABLES Final Result [facility] [address] [place] [address], [facility] * (ABNORMAL) CBC (10/26/2024 10:48 AM EDT) WBC 17.3(H) 3.8 - 10.8 10E3/uL 10/26/2024 11:14 AM EDT [facility] RBC 4.22 4.20 - 5.80 10E6/uL 10/26/2024 11:14 AM EDT [facility] Hemoglobin 12.8(L) 13.2 - 17.1 g/dL 10/26/2024 11:14 AM EDT [facility] Hematocrit 37.2(L) 38.5 - 50.0 % 10/26/2024 11:14 AM EDT [facility] MCV 88.3 80.0 - 100.0 fL 10/26/2024 11:14 AM EDT [facility] MCH 30.4 27.0 - 33.0 pg 10/26/2024 11:14 AM EDT [facility] MCHC 34.4 32.0 - 36.0 g/dL 10/26/2024 11:14 AM EDT [facility] RDW 20.8(H) 11.0 - 15.0 % 10/26/2024 11:14 AM EDT [facility] Platelets 109(L) 140 - 400 10E3/uL 10/26/2024 11:14 AM EDT [facility] MPV 7.5 7.5 - 11.5 fL 10/26/2024 11:14 AM EDT [facility] Whole Blood 10/26/2024 10:4 8 AM EDT 10/26/2024 10:53 AM EDT Kemar Sahni MD LAB BLOOD ORDERABLES Final Result [facility] [address] [place] [address], [facility] * (ABNORMAL) Blood gas, arterial (10/26/2024 10:48 AM EDT) O2 Sat, Arterial 97 10/26/2024 10:54 AM EDT [facility] FIO2 35% 10/26/2024 10:54 AM EDT [facility] pH, Arterial 7.37 7.35 - 7.45 10/26/2024 10:54 AM EDT [facility] pCO2, Arterial 36 35 - 45 mm Hg 10/26/2024 10:54 AM EDT [facility] pO2, Arterial 91 80 - 100 mm Hg 10/26/2024 10:54 AM EDT [facility] HCO3, Arterial 22 22 - 26 mmol/L 10/26/2024 10:54 AM EDT [facility] CO2 Content,Arteri al 22(L) 23 - 27 mmol/L 10/26/2024 10:54 AM EDT [facility] Base Excess, Arterial -3.9(L) -2.0 - 3.0 mmol/L 10/26/2024 10:54 AM EDT [facility] %HBO2, Arterial 94.8(L) 95.0 - 98.0 % 10/26/2024 10:54 AM EDT [facility] Carboxyhemoglo bin, Arterial 1.9 % 10/26/2024 10:54 AM EDT [facility] Comment: CARBOXYHEMOGLOBIN (CO) REFERENCE RANGES: Non-Smokers: <2 % Smokers: <8 % TOXIC: >20 % Methemoglobin, Arterial 0.7 0.0 - 1.5 % 10/26/2024 10:54 AM EDT [facility] Reduced hemoglobin, Arterial 2.5 0.0 - 5.0 % 10/26/2024 10:54 AM EDT [facility] Blood, Arterial 10/26/2024 1 0:48 AM EDT 10/26/2024 10:52 AM EDT us Shay Sifuentes MD LAB BLOOD ORDERABLES Final Resu lt [facility] [address] [place] [address], [facility] * (ABNORMAL) Renal Function Panel w/EGFR (10/26/2024 10:48 AM EDT) Sodium 139 133 - 146 mmol/L 10/26/2024 11:26 AM EDT [facility] Potassium 2.9(LL) 3.5 - 5.3 mmol/L 10/26/2024 11:26 AM EDT [facility] Comment:K CRITICAL VALUE WAS PREVIOUSLY CALLED Chloride 107 98 - 110 mmol/L 10/26/2024 11:26 AM EDT [facility] CO2 22 21 - 33 mmol/L 10/26/2024 11:26 AM EDT [facility] Anion Gap 10 3 - 16 mmol/L 10/26/2024 11:26 AM EDT [facility] BUN 61(H) 7 - 25 mg/dL 10/26/2024 11:26 AM EDT [facility] Creatinine 2.78(H) 0.60 - 1.30 mg/dL 10/26/2024 11:26 AM EDT [facility] Glucose 253(H) 70 - 100 mg/dL 10/26/2024 11:26 AM EDT [facility] Calcium 8.8 8.6 - 10.3 mg/dL 10/26/2024 11:26 AM EDT [facility] Phosphorus 4.1 2.1 - 4.7 mg/dL 10/26/2024 11:26 AM EDT [facility] Albumin 2.5(L) 3.5 - 5.7 g/dL 10/26/2024 11:26 AM EDT [facility] Osmolality, Calculated 314(H) 278 - 305 mOsm/kg 10/26/2024 11:26 AM EDT [facility] EGFR 28 10/26/2024 11:26 AM EDT [facility] Comment:As of 2021, the estimated GFR [...] Final Result Performing Organization Address [facility]/ZIP Co de Phone Number [facility] [address] [place] [address]. [address] * (ABNORMAL) POC Glucose Monitoring Device (10/26/2024 10:47 AM EDT) POC Glucose Monitoring Device 234(H) 70 - 100 mg/dL 10/26/2024 10:48 AM EDT [facility] Blood 10/26/2024 10:4 7 AM EDT 10/26/2024 10:48 AM EDT Semaj Mcnair III, MD POINT OF CARE TEST ORDERABLES Final Result Performing Organization Address [facility]/ZIP Co de Phone Number [facility] [address] [facility]. [address] * CARISA Rhythm Strip - Scan (10/26/2024 10:45 AM EDT) us Scanning Uchhim SCAN DOCS - NO RESULTS Final Res ult * (ABNORMAL) POC Glucose Monitoring Device (10/26/2024 10:08 AM EDT) POC Glucose Monitoring Device 235(H) 70 - 100 mg/dL 10/26/2024 10:09 AM EDT [facility] Blood 10/26/2024 10:0 8 AM EDT 10/26/2024 10:09 AM EDT Semaj Mcnair III, MD POINT OF CARE TEST ORDERABLES Final Result Performing Organization Address [facility] Co de Phone Number [facility] [address] [facility]. [address] * (ABNORMAL) POC Glucose Monitoring Device (10/26/2024 8:57 AM EDT) POC Glucose Monitoring Device 232(H) 70 - 100 mg/dL 10/26/2024 8:59 AM EDT [facility] Blood 10/26/2024 8:57 AM EDT 10/26/2024 8:58 AM EDT Semaj Mcnair III, MD POINT OF CARE TEST ORDERABLES Final Result Performing Organization Address [facility] de Phone Number [facility] [address] [facility]. [address] * ECG 12 lead (MUSE) (10/26/2024 8:16 AM EDT) 10/26/2024 8:16 AM EDT Narrative MUSE - 10/27/2024 10:09 AM EDT Ventricular Rate: 112 BPM QRS Duration: 96 ms QT: 452 ms QTc: 616 ms R [place]: -41 degrees T [place]: 40 degrees Diagnosis Line: Critical Test Result: Long QTc ^ SINUS TACHYCARDIA OCCASIONAL PREMATURE VENTRICULAR COMPLEXES ^ LEFT AXIS DEVIATION, LEFT ANTERIOR HEMIBLOCK ^ PROLONGED QT ^ ABNORMAL ECG ^ ^ Confirmed by MD HA, ERICK ([facility]) on 10/27/2024 10:09:18 AM Shay Sifuentes MD ECG ORDERABLES Final Result Performing Organization Address City/[facility] Co de Phone Number MUSE [...] - 100 mg/dL 10/26/2024 8:01 AM EDT [facility] Blood 10/26/2024 7:59 AM EDT 10/26/2024 8:00 AM EDT us Semaj Mcnair III, MD POINT OF CARE TEST ORDERABLES Final Result Performing Organization Address [facility]/ZIP Co de Phone Number [facility] [address] [place], [place] [address] * (ABNORMAL) TEG-Bypass/ECMO/Liver HN (Factor function, Platelet/Fibrin Clot Strength w/Clot Breakdown, Heparinase In All Channels) (10/26/2024 7:59 AM EDT) [facility] Citrated Kaolin Reaction Time (TEGECMOLIVER) 8.2 4.6 - 9.1 minutes 10/26/2024 10:36 AM EDT [facility] Citrated Kaolin W/Heparinase Reaction Time (TEGECMOLIVER) 8.1 4.3 - 8.3 minutes 10/26/2024 10:36 AM EDT [facility] Citrated Kaolin Maximum Amplitude (TEGECMOLIVER) 46.8(L) 52.0 - 69.0 mm 10/26/2024 10:36 AM EDT [facility] Citrated Functional Fibrinogen W/Heparinase Maximum Amplitude(TEGEC MOLIVER) 10.5(L) 15.0 - 34.0 mm 10/26/2024 10:36 AM EDT [facility] Citrated Rapid Teg W/Heparinase Maximum Amplitude (TEGECMOLIVER) 45.5(L) 53.0 - 69.0 mm 10/26/2024 10:36 AM EDT [facility] Citrated Kaolin w/Heparinase Percent Lysis (TEGECMOLIVER) 0.0 0.0 - 3.2 % 10/26/2024 10:36 AM EDT [facility] Whole Blood (Citrate) 10/26/2024 7:59 AM EDT 10/26/2024 8:05 AM EDT us Shay Sifuentes MD LAB BLOOD ORDERABLES Final Resu lt Performing Organization Address City/[facility]/ZIP Co de Phone Number [facility] [address] [facility] * (ABNORMAL) POC Glucose Monitoring Device (10/26/2024 6:12 AM EDT) POC Glucose Monitoring Device 196(H) 70 - 100 mg/dL 10/26/2024 6:13 AM EDT [facility] Blood 10/26/2024 6:12 AM EDT 10/26/2024 6:13 AM EDT Semaj Mcnair III, MD POINT OF CARE TEST ORDERABLES Final Result Performing Organization Address [facility] Co de Phone Number [facility] [address] [facility] * Lactic Acid (10/26/2024 6:10 AM EDT) Lactate 1.2 0.5 - 2.2 mmol/L 10/26/2024 6:39 AM EDT [facility] Plasma 10/26/2024 6:10 AM EDT 10/26/2024 6:19 AM EDT Sveta Judge MD LAB BLOOD ORDERABLES Final Resu lt Performing Organization Address [facility] Co de Phone Number [facility] [address] [facility] * (ABNORMAL) Fibrinogen (10/26/2024 6:10 AM EDT) Fibrinogen 160(L) 218 - 406 mg/dL 10/26/2024 6:41 AM EDT [facility] Plasma 10/26/2024 6:10 AM EDT 10/26/2024 6:26 AM EDT us Sveta Judge MD LAB BLOOD ORDERABLES Final Resu lt Performing Organization Address [facility] Co de Phone Number [facility] [address] [facility] * (ABNORMAL) Protime-INR (10/26/2024 6:10 AM EDT) Protime 25.0(H) 12.1 - 15.1 seconds 10/26/2024 6:41 AM EDT [facility] INR 2.2(H) 0.9 - 1.1 10/26/2024 6:41 AM EDT [facility] Comment: RECOMMENDED THERAPEUTIC RANGES USING INR : Stable oral anticoagulant therapy: 2.0 - 3.0 Mechanical prosthetic heart valve: 2.5 - 3.5 Recurrent acute myocardial infarction: 2.5 - 3.5 Plasma 10/26/2024 6:10 AM EDT 10/26/2024 6:26 AM EDT us Sveta Judge MD LAB BLOOD ORDERABLES Final Resu lt [facility] [address] * (ABNORMAL) Blood gas, arterial (10/26/2024 6:10 AM EDT) O2 Sat, Arterial 98 10/26/2024 6:23 AM EDT [facility] FIO2 60 10/26/2024 6:23 AM EDT [facility] pH, Arterial 7.27(L) 7.35 - 7.45 10/26/2024 6:23 AM EDT [facility] pCO2, Arterial 47(H) 35 - 45 mm Hg 10/26/2024 6:23 AM EDT [facility] pO2, Arterial 127(H) 80 - 100 mm Hg 10/26/2024 6:23 AM EDT [facility] HCO3, Arterial 21(L) 22 - 26 mmol/L 10/26/2024 6:23 AM EDT [facility] CO2 Content,Arteri al 23 23 - 27 mmol/L 10/26/2024 6:23 AM EDT [facility] Base Excess, Arterial -5.4(L) -2.0 - 3.0 mmol/L 10/26/2024 6:23 AM EDT [facility] %HBO2, Arterial 94.6(L) 95.0 - 98.0 % 10/26/2024 6:23 AM EDT [facility] Carboxyhemoglo bin, Arterial 2.0 % 10/26/2024 6:23 AM EDT [facility] Comment: CARBOXYHEMOGLOBIN (CO) REFERENCE RANGES: Non-Smokers: <2 % Smokers: <8 % TOXIC: >20 % Methemoglobin, Arterial 1.6(H) 0.0 - 1.5 % 10/26/2024 6:23 AM EDT [facility] Reduced hemoglobin, Arterial 1.8 0.0 - 5.0 % 10/26/2024 6:23 AM EDT [facility] Blood, Arterial 10/26/2024 6 :10 AM EDT 10/26/2024 6:20 AM EDT Sveta Judge MD LAB BLOOD ORDERABLES Final Resu lt Performing Organization Address [facility] Co de Phone Number [facility] [address] [facility]. [address] * Magnesium (10/26/2024 6:10 AM EDT) Magnesium 1.5 1.5 - 2.5 mg/dL 10/26/2024 7:09 AM EDT [facility] Plasma 10/26/2024 6:10 AM EDT 10/26/2024 6:23 AM EDT Sveta Judge MD LAB BLOOD ORDERABLES Final Resu lt Performing Organization Address City/[facility] Co de Phone Number [facility] [address] [facility]. [address] * (ABNORMAL) Hepatic Function Panel (10/26/2024 6:10 AM EDT) Total Bilirubin 6.2(H) 0.0 - 1.5 mg/dL 10/26/2024 7:11 AM EDT [facility] Bilirubin, Direct 5.26(H) 0.00 - 0.40 mg/dL 10/26/2024 7:11 AM EDT [facility] AST 1,071(H) 13 - 39 U/L 10/26/2024 7:11 AM EDT [facility] ALT 805(H) 7 - 52 U/L 10/26/2024 7:11 AM EDT [facility] Alkaline Phosphatase 55 36 - 125 U/L 10/26/2024 7:11 AM EDT [facility] Total Protein <3.0(L) 6.4 - 8.9 g/dL 10/26/2024 7:11 AM EDT [facility] Albumin 1.9(L) 3.5 - 5.7 g/dL 10/26/2024 7:11 AM EDT [facility] Bilirubin, Indirect 0.94 0.00 - 1.10 mg/dL 10/26/2024 7:11 AM EDT [facility] Plasma 10/26/2024 6:10 AM EDT 10/26/2024 6:23 AM EDT Sveta Judge MD LAB BLOOD ORDERABLES Final Resu lt [facility] [address] * (ABNORMAL) Renal Function Panel w/EGFR (10/26/2024 6:10 AM EDT) Sodium 141 133 - 146 mmol/L 10/26/2024 7:09 AM EDT [facility] Potassium 2.8(LL) 3.5 - 5.3 mmol/L 10/26/2024 7:09 AM EDT [facility] Comment:Critical value previ ously called. Chloride 106 98 - 110 mmol/L 10/26/2024 7:09 AM EDT [facility] CO2 25 21 - 33 mmol/L 10/26/2024 7:09 AM EDT [facility] Anion Gap 10 3 - 16 mmol/L 10/26/2024 7:09 AM EDT [facility] BUN 57(H) 7 - 25 mg/dL 10/26/2024 7:09 AM EDT [facility] Creatinine 2.70(H) 0.60 - 1.30 mg/dL 10/26/2024 7:09 AM EDT [facility] Glucose 210(H) 70 - 100 mg/dL 10/26/2024 7:09 AM EDT [facility] Calcium 8.7 8.6 - 10.3 mg/dL 10/26/2024 7:09 AM EDT [facility] Phosphorus 5.4(H) 2.1 - 4.7 mg/dL 10/26/2024 7:09 AM EDT [facility] Albumin 1.9(L) 3.5 - 5.7 g/dL 10/26/2024 7:11 AM EDT [facility] Osmolality, Calculated 314(H) 278 - 305 mOsm/kg 10/26/2024 7:09 AM EDT [facility] EGFR 29 10/26/2024 7:09 AM EDT [facility] Comment:As of 2021, the estimated GFR [...] MD LAB BLOOD ORDERABLES Final Resu lt [facility] [address] [place] [address], [facility] * (ABNORMAL) CBC (10/26/2024 6:10 AM EDT) WBC 14.8(H) 3.8 - 10.8 10E3/uL 10/26/2024 6:46 AM EDT [facility] RBC 4.04(L) 4.20 - 5.80 10E6/uL 10/26/2024 6:46 AM EDT [facility] Hemoglobin 12.7(L) 13.2 - 17.1 g/dL 10/26/2024 6:46 AM EDT [facility] Hematocrit 35.9(L) 38.5 - 50.0 % 10/26/2024 6:46 AM EDT [facility] MCV 89.0 80.0 - 100.0 fL 10/26/2024 6:46 AM EDT [facility] MCH 31.3 27.0 - 33.0 pg 10/26/2024 6:46 AM EDT [facility] MCHC 35.2 32.0 - 36.0 g/dL 10/26/2024 6:46 AM EDT [facility] RDW 19.7(H) 11.0 - 15.0 % 10/26/2024 6:46 AM EDT [facility] Platelets 107(L) 140 - 400 10E3/uL 10/26/2024 6:46 AM EDT [facility] MPV 7.4(L) 7.5 - 11.5 fL 10/26/2024 6:46 AM EDT [facility] Whole Blood 10/26/2024 6:10 AM EDT 10/26/2024 6:26 AM EDT us Sveta Judge MD LAB BLOOD ORDERABLES Final Resu lt [facility] [address] [id number] * (ABNORMAL) POC INR (10/26/2024 5:16 AM EDT) Prothrombin Time INR, POC 2.4(H) 0.8 - 1.4 10/27/2024 6:51 AM EDT [facility] Comment: Test results may vary using different testing platforms. Serial result monitoring should be performed using the same methodology. RECOMMENDED THERAPEUTIC RANGES USING INR : Stable oral anticoagulant therapy: 2.0 - 3.0 Mechanical prosthetic heart valve: 2.5 - 3.5 Recurrent acute myocardial infarction: 2.5 - 3.5 Blood 10/26/2024 5:16 AM EDT 10/27/2024 6:51 AM EDT us Smeaj Mcnair III, MD POINT OF CARE TEST ORDERABLES Final Result [facility] [address] * POC Sample Type (10/26/2024 5:14 AM EDT) POC Sample Type Arterial 10/26/2024 5:31 AM EDT [facility] Blood, Arterial 10/26/2024 5 :14 AM EDT 10/26/2024 5:31 AM EDT Semaj Mcnair III, MD POINT OF CARE TEST ORDERABLES Final Result Performing Organization Address City/[facility]/ZIP Co de Phone Number [facility] [address] [facility] * POC Anion Gap (10/26/2024 5:14 AM EDT) POC Anion Gap, Arterial 12 3 - 16 mmol/L 10/26/2024 5:31 AM EDT [facility] Blood, Arterial 10/26/2024 5 :14 AM EDT 10/26/2024 5:31 AM EDT Semaj Mcnair III, MD POINT OF CARE TEST ORDERABLES Final Result [facility] [address] * POC Chloride (10/26/2024 5:14 AM EDT) POC Chloride 104 98 - 110 mmol/L 10/26/2024 5:31 AM EDT [facility] Blood, Arterial 10/26/2024 5 :14 AM EDT 10/26/2024 5:31 AM EDT Semaj Mcnair III, MD POINT OF CARE TEST ORDERABLES Final Result Performing Organization Address City/[facility] Co de Phone Number [facility] [address] * (ABNORMAL) POC Hemoglobin (10/26/2024 5:14 AM EDT) POC Hemoglobin 9.5(L) 14.0 - 18.0 g/dL 10/26/2024 5:31 AM EDT [facility] Blood, Arterial 10/26/2024 5 :14 AM EDT 10/26/2024 5:31 AM EDT Semaj Mcnair III, MD POINT OF CARE TEST ORDERABLES Final Result Performing Organization Address [facility] Co de Phone Number [facility] [address] [facility] * (ABNORMAL) POC hematocrit (10/26/2024 5:14 AM EDT) POC Hematocrit 28.0(L) 40 - 52 % 10/26/2024 5:31 AM EDT [facility] Blood, Arterial 10/26/2024 5 :14 AM EDT 10/26/2024 5:31 AM EDT Semaj Mcnair III, MD POINT OF CARE TEST ORDERABLES Final Result Performing Organization Address City/[facility] Co de Phone Number [facility] [address] * POC Lactate (10/26/2024 5:14 AM EDT) POC Lactate 1.76 0.50 - 2.20 mmol/L 10/26/2024 5:31 AM EDT [facility] Blood, Arterial 10/26/2024 5 :14 AM EDT 10/26/2024 5:31 AM EDT Semaj Mcnair III, MD POINT OF CARE TEST ORDERABLES Final Result Performing Organization Address City/[facility]/ZIP Co de Phone Number [facility] [address] [address] [facility] [address] * (ABNORMAL) POC Glucose (10/26/2024 5:14 AM EDT) POC Glucose, Arterial 183(H) 70 - 100 mg/dL 10/26/2024 5:31 AM EDT [facility] Blood, Arterial 10/26/2024 5 :14 AM EDT 10/26/2024 5:31 AM EDT Semaj Mcnair III, MD POINT OF CARE TEST ORDERABLES Final Result Performing Organization Address [facility] Co de Phone Number [facility] [address] [place] [address]. [address] * (ABNORMAL) POC Ionized Calcium (10/26/2024 5:14 AM EDT) POC Ionized Calcium 5.50(H) 4.50 - 5.30 mg/dL 10/26/2024 5:31 AM EDT [facility] Blood, Arterial 10/26/2024 5 :14 AM EDT 10/26/2024 5:31 AM EDT Semaj Mcnair III, MD POINT OF CARE TEST ORDERABLES Final Result Performing Organization Address City/[facility] Co de Phone Number [facility] [address] [address] [facility]. [address] * (ABNORMAL) POC Potassium (10/26/2024 5:14 AM EDT) POC Potassium 2.8(LL) 3.5 - 5.3 mmol/L 10/26/2024 5:31 AM EDT [facility] Blood, Arterial 10/26/2024 5 :14 AM EDT 10/26/2024 5:31 AM EDT us Semaj Mcnair III, MD POINT OF CARE TEST ORDERABLES Final Result Performing Organization Address City/[facility]/ZIP Co de Phone Number [facility] [address] * POC Sodium (10/26/2024 5:14 AM EDT) POC Sodium 138 136 - 146 mmol/L 10/26/2024 5:31 AM EDT [facility] Blood, Arterial 10/26/2024 5 :14 AM EDT 10/26/2024 5:31 AM EDT us Semaj Mcnair III, MD POINT OF CARE TEST ORDERABLES Final Result Performing Organization Address City/[facility] Co de Phone Number [facility] [address] [place] [address]. [address] * POC TCO2 (10/26/2024 5:14 AM EDT) POC TCO2, Arterial 23 23 - 27 mmol/L 10/26/2024 5:31 AM EDT [facility] Blood, Arterial 10/26/2024 5 :14 AM EDT 10/26/2024 5:31 AM EDT us Semaj Mcnair III, MD POINT OF CARE TEST ORDERABLES Final Result Performing Organization Address City/[facility]/ZIP Co de Phone Number [facility] [address] [address] * (ABNORMAL) POC O2 SAT (10/26/2024 5:14 AM EDT) POC O2 Saturation, Arterial 99(H) 95 - 98 % 10/26/2024 5:31 AM EDT [facility] Blood, Arterial 10/26/2024 5 :14 AM EDT 10/26/2024 5:31 AM EDT us Semaj Mcnair III, MD POINT OF CARE TEST ORDERABLES Final Result Performing Organization Address City/[facility]/ZIP Co de Phone Number [facility] [address] * (ABNORMAL) POC Base Excess (10/26/2024 5:14 AM EDT) POC Base Excess, Arterial -5(L) -2 - 3 mmol/L 10/26/2024 5:31 AM EDT [facility] Blood, Arterial 10/26/2024 5 :14 AM EDT 10/26/2024 5:31 AM EDT us Semaj Mcnair III, MD POINT OF CARE TEST ORDERABLES Final Result Performing Organization Address [facility] Co de Phone Number [facility] [address] * POC HCO3 (10/26/2024 5:14 AM EDT) POC HCO3, Arterial 22 22 - 26 mmol/L 10/26/2024 5:31 AM EDT [facility] Blood, Arterial 10/26/2024 5 :14 AM EDT 10/26/2024 5:31 AM EDT us Semaj Mcnair III, MD POINT OF CARE TEST ORDERABLES Final Result Performing Organization Address [facility]/ZIP Co de Phone Number [facility] [address] [facility] * (ABNORMAL) POC PO2 (10/26/2024 5:14 AM EDT) POC pO2, Arterial 133(H) 80 - 100 mm Hg 10/26/2024 5:31 AM EDT [facility] Blood, Arterial 10/26/2024 5 :14 AM EDT 10/26/2024 5:31 AM EDT us Semaj Mcnair III, MD POINT OF CARE TEST ORDERABLES Final Result [facility] [address] * POC PCO2 (10/26/2024 5:14 AM EDT) POC pCO2, Arterial 45 35 - 45 mm Hg 10/26/2024 5:31 AM EDT [facility] Blood, Arterial 10/26/2024 5 :14 AM EDT 10/26/2024 5:31 AM EDT us Semaj Mcnair III, MD POINT OF CARE TEST ORDERABLES Final Result Performing Organization Address [facility] Co de Phone Number [facility] [address] [facility]. [address] * (ABNORMAL) POC pH (10/26/2024 5:14 AM EDT) POC pH, Arterial 7.29(L) 7.35 - 7.45 10/26/2024 5:31 AM EDT [facility] Blood, Arterial 10/26/2024 5 :14 AM EDT 10/26/2024 5:31 AM EDT us Semaj Mcnair III, MD POINT OF CARE TEST ORDERABLES Final Result Performing Organization Address [facility] Co de Phone Number [facility] [address] [facility] * Transfuse Cryoprecipitate (10/26/2024 4:37 AM EDT) us Eber Quinones MD NURSING TREATMENT ORDERA BLES - BLOOD ADMIN Final Result * Transfuse Cryoprecipitate (10/26/2024 4:37 AM EDT) Eber Quinones MD NURSING TREATMENT ORDERA BLES - BLOOD ADMIN Final Result * (ABNORMAL) POC INR (10/26/2024 4:27 AM EDT) Prothrombin Time INR, POC 2.3(H) 0.8 - 1.4 10/27/2024 6:51 AM EDT [facility] Comment: Test results may vary using [...] POINT OF CARE TEST ORDERABLES Final Result [facility] [address] [facility] [address] * POC Sample Type (10/26/2024 4:24 AM EDT) POC Sample Type Arterial 10/26/2024 5:09 AM EDT [facility] Blood, Arterial 10/26/2024 4 :24 AM EDT 10/26/2024 5:09 AM EDT Semaj Mcnair III, MD POINT OF CARE TEST ORDERABLES Final Result Performing Organization Address City/[facility] Co de Phone Number [facility] [address] * POC Anion Gap (10/26/2024 4:24 AM EDT) POC Anion Gap, Arterial 14 3 - 16 mmol/L 10/26/2024 5:09 AM EDT [facility] Blood, Arterial 10/26/2024 4 :24 AM EDT 10/26/2024 5:09 AM EDT Semaj Mcnair III, MD POINT OF CARE TEST ORDERABLES Final Result Performing Organization Address City/[facility]/ZIP Co de Phone Number [facility] [address] * POC Chloride (10/26/2024 4:24 AM EDT) POC Chloride 103 98 - 110 mmol/L 10/26/2024 5:09 AM EDT [facility] Blood, Arterial 10/26/2024 4 :24 AM EDT 10/26/2024 5:09 AM EDT us Semaj Mcnair III, MD POINT OF CARE TEST ORDERABLES Final Result [facility] [address] [facility]. [address] * (ABNORMAL) POC Hemoglobin (10/26/2024 4:24 AM EDT) POC Hemoglobin 10.3(L) 14.0 - 18.0 g/dL 10/26/2024 5:09 AM EDT [facility] Blood, Arterial 10/26/2024 4 :24 AM EDT 10/26/2024 5:09 AM EDT us Semaj Mcnair III, MD POINT OF CARE TEST ORDERABLES Final Result Performing Organization Address City/[facility] Co de Phone Number [facility] [address] [place] [address]. [address] * (ABNORMAL) POC hematocrit (10/26/2024 4:24 AM EDT) POC Hematocrit 30.0(L) 40 - 52 % 10/26/2024 5:09 AM EDT [facility] Blood, Arterial 10/26/2024 4 :24 AM EDT 10/26/2024 5:09 AM EDT us Semaj Mcnair III, MD POINT OF CARE TEST ORDERABLES Final Result Performing Organization Address City/[facility] Co de Phone Number [facility] [address] [facility]. [address] * (ABNORMAL) POC Lactate (10/26/2024 4:24 AM EDT) Pathologist [facility] POC Lactate 2.43(H) 0.50 - 2.20 mmol/L 10/26/2024 5:09 AM EDT [facility] Blood, Arterial 10/26/2024 4 :24 AM EDT 10/26/2024 5:09 AM EDT us Semaj Mcnair III, MD POINT OF CARE TEST ORDERABLES Final Result Performing Organization Address City/[facility]/ZIP Co de Phone Number [facility] [address] [place] [address]. [address] * (ABNORMAL) POC Glucose (10/26/2024 4:24 AM EDT) Pathologist [facility] POC Glucose, Arterial 185(H) 70 - 100 mg/dL 10/26/2024 5:09 AM EDT [facility] Blood, Arterial 10/26/2024 4 :24 AM EDT 10/26/2024 5:09 AM EDT us Semaj Mcnair III, MD POINT OF CARE TEST ORDERABLES Final Result Performing Organization Address [facility] Co de Phone Number [facility] [address] [place] [address]. [address] * POC Ionized Calcium (10/26/2024 4:24 AM EDT) [facility] POC Ionized Calcium 5.20 4.50 - 5.30 mg/dL 10/26/2024 5:09 AM EDT [facility] Blood, Arterial 10/26/2024 4 :24 AM EDT 10/26/2024 5:09 AM EDT us Semaj Mcnair III, MD POINT OF CARE TEST ORDERABLES Final Result Performing Organization Address City/[facility] Co de Phone Number [facility] [address] [place] [address]. [address] * (ABNORMAL) POC Potassium (10/26/2024 4:24 AM EDT) POC Potassium 2.8(LL) 3.5 - 5.3 mmol/L 10/26/2024 5:09 AM EDT [facility] Blood, Arterial 10/26/2024 4 :24 AM EDT 10/26/2024 5:09 AM EDT us Semaj Mcnair III, MD POINT OF CARE TEST ORDERABLES Final Result Performing Organization Address City/[facility]/ZIP Co de Phone Number [facility] [address] [place] [address]. [address] * POC Sodium (10/26/2024 4:24 AM EDT) Pathologist [facility] POC Sodium 139 136 - 146 mmol/L 10/26/2024 5:09 AM EDT [facility] Blood, Arterial 10/26/2024 4 :24 AM EDT 10/26/2024 5:09 AM EDT us Semaj Mcnair III, MD POINT OF CARE TEST ORDERABLES Final Result Performing Organization Address [facility] Co de Phone Number [facility] [address] [place] [address]. [address] * POC TCO2 (10/26/2024 4:24 AM EDT) Pathologist [facility] POC TCO2, Arterial 23 23 - 27 mmol/L 10/26/2024 5:09 AM EDT [facility] Blood, Arterial 10/26/2024 4 :24 AM EDT 10/26/2024 5:09 AM EDT us Semaj Mcnair III, MD POINT OF CARE TEST ORDERABLES Final Result Performing Organization Address City/[facility] Co de Phone Number [facility] [address] [place] [address]. [address] * POC O2 SAT (10/26/2024 4:24 AM EDT) Pathologist [facility] POC O2 Saturation, Arterial 96 95 - 98 % 10/26/2024 5:09 AM EDT [facility] Blood, Arterial 10/26/2024 4 :24 AM EDT 10/26/2024 5:09 AM EDT us Semaj Mcnair III, MD POINT OF CARE TEST ORDERABLES Final Result [facility] [address] [facility] * (ABNORMAL) POC Base Excess (10/26/2024 4:24 AM EDT) POC Base Excess, Arterial -5(L) -2 - 3 mmol/L 10/26/2024 5:09 AM EDT [facility] Blood, Arterial 10/26/2024 4 :24 AM EDT 10/26/2024 5:09 AM EDT us Semaj Mcnair III, MD POINT OF CARE TEST ORDERABLES Final Result Performing Organization Address City/[facility]/ZIP Co de Phone Number [facility] [address] [facility] * POC HCO3 (10/26/2024 4:24 AM EDT) POC HCO3, Arterial 22 22 - 26 mmol/L 10/26/2024 5:09 AM EDT [facility] Blood, Arterial 10/26/2024 4 :24 AM EDT 10/26/2024 5:09 AM EDT us Semaj Mcnair III, MD POINT OF CARE TEST ORDERABLES Final Result [facility] [address] [facility] * POC PO2 (10/26/2024 4:24 AM EDT) POC pO2, Arterial 93 80 - 100 mm Hg 10/26/2024 5:09 AM EDT [facility] Blood, Arterial 10/26/2024 4 :24 AM EDT 10/26/2024 5:09 AM EDT Semaj Mcnair III, MD POINT OF CARE TEST ORDERABLES Final Result Performing Organization Address [facility] Co de Phone Number [facility] [address] * POC PCO2 (10/26/2024 4:24 AM EDT) POC pCO2, Arterial 44 35 - 45 mm Hg 10/26/2024 5:09 AM EDT [facility] Blood, Arterial 10/26/2024 4 :24 AM EDT 10/26/2024 5:09 AM EDT Semaj Mcnair III, MD POINT OF CARE TEST ORDERABLES Final Result Performing Organization Address [facility] Co de Phone Number [facility] [address] [facility] * (ABNORMAL) POC pH (10/26/2024 4:24 AM EDT) POC pH, Arterial 7.30(L) 7.35 - 7.45 10/26/2024 5:09 AM EDT [facility] Blood, Arterial 10/26/2024 4 :24 AM EDT 10/26/2024 5:09 AM EDT Semaj Mcnair III, MD POINT OF CARE TEST ORDERABLES Final Result Performing Organization Address [facility] Co de Phone Number [facility] [address] [facility] * Transfuse Platelets (10/26/2024 4:14 AM EDT) Result [facility] Ben Blake MD NURSING TREATMENT ORDERABLES - BLOOD ADMIN Final Result * Transfuse Fresh Frozen Plasma (10/26/2024 3:47 AM EDT) Ben Blake MD NURSING TREATMENT ORDERABLES - BLOOD ADMIN Final Result * (ABNORMAL) POC INR (10/26/2024 3:34 AM EDT) Prothrombin Time INR, POC 2.8(H) 0.8 - 1.4 10/27/2024 6:51 AM EDT [facility] Comment: Test results may vary using [...] TEST ORDERABLES Final Result Performing Organization Address [facility] Co de Phone Number [facility] [address] [place] [address]. [address] * POC Sample Type (10/26/2024 3:31 AM EDT) Pathologist [facility] POC Sample Type Arterial 10/26/2024 4:11 AM EDT [facility] Blood, Arterial 10/26/2024 3 :31 AM EDT 10/26/2024 4:11 AM EDT us Semaj Mcnair III, MD POINT OF CARE TEST ORDERABLES Final Result Performing Organization Address City/[facility] Co de Phone Number [facility] [address] [place] [address]. [address] * POC Anion Gap (10/26/2024 3:31 AM EDT) POC Anion Gap, Arterial 15 3 - 16 mmol/L 10/26/2024 4:11 AM EDT [facility] Blood, Arterial 10/26/2024 3 :31 AM EDT 10/26/2024 4:11 AM EDT us Semaj Mcnair III, MD POINT OF CARE TEST ORDERABLES Final Result Performing Organization Address [facility]/ZIP Co de Phone Number [facility] [address] * POC Chloride (10/26/2024 3:31 AM EDT) POC Chloride 105 98 - 110 mmol/L 10/26/2024 4:11 AM EDT [facility] Blood, Arterial 10/26/2024 3 :31 AM EDT 10/26/2024 4:11 AM EDT us Semaj Mcnair III, MD POINT OF CARE TEST ORDERABLES Final Result Performing Organization Address [facility] Co de Phone Number [facility] [id number] [facility]. [address] * (ABNORMAL) POC Hemoglobin (10/26/2024 3:31 AM EDT) POC Hemoglobin 9.7(L) 14.0 - 18.0 g/dL 10/26/2024 4:11 AM EDT [facility] Blood, Arterial 10/26/2024 3 :31 AM EDT 10/26/2024 4:11 AM EDT us Semaj Mcnair III, MD POINT OF CARE TEST ORDERABLES Final Result Performing Organization Address [facility] Co de Phone Number [facility] [id number] [facility]. [address] * (ABNORMAL) POC hematocrit (10/26/2024 3:31 AM EDT) POC Hematocrit 29.0(L) 40 - 52 % 10/26/2024 4:11 AM EDT [facility] Blood, Arterial 10/26/2024 3 :31 AM EDT 10/26/2024 4:11 AM EDT us Semaj Mcnair III, MD POINT OF CARE TEST ORDERABLES Final Result Performing Organization Address [facility] Co de Phone Number [facility] [address] [facility]. [address] * (ABNORMAL) POC Lactate (10/26/2024 3:31 AM EDT) POC Lactate 3.54(H) 0.50 - 2.20 mmol/L 10/26/2024 4:11 AM EDT [facility] Blood, Arterial 10/26/2024 3 :31 AM EDT 10/26/2024 4:11 AM EDT us Semaj Mcnair III, MD POINT OF CARE TEST ORDERABLES Final Result Performing Organization Address [facility] Co de Phone Number [facility] [address] [facility]. [address] * (ABNORMAL) POC Glucose (10/26/2024 3:31 AM EDT) POC Glucose, Arterial 153(H) 70 - 100 mg/dL 10/26/2024 4:11 AM EDT [facility] Blood, Arterial 10/26/2024 3 :31 AM EDT 10/26/2024 4:11 AM EDT us Semaj Mcnair III, MD POINT OF CARE TEST ORDERABLES Final Result Performing Organization Address [facility] Co de Phone Number [facility] [address] [facility]. [address] * POC Ionized Calcium (10/26/2024 3:31 AM EDT) POC Ionized Calcium 5.10 4.50 - 5.30 mg/dL 10/26/2024 4:11 AM EDT [facility] Blood, Arterial 10/26/2024 3 :31 AM EDT 10/26/2024 4:11 AM EDT us Semaj Mcnair III, MD POINT OF CARE TEST ORDERABLES Final Result [facility] [address] * (ABNORMAL) POC Potassium (10/26/2024 3:31 AM EDT) POC Potassium 2.6(LL) 3.5 - 5.3 mmol/L 10/26/2024 4:11 AM EDT [facility] Blood, Arterial 10/26/2024 3 :31 AM EDT 10/26/2024 4:11 AM EDT us Semaj Mcnair III, MD POINT OF CARE TEST ORDERABLES Final Result Performing Organization Address [facility] Co de Phone Number [facility] [address] * POC Sodium (10/26/2024 3:31 AM EDT) POC Sodium 138 136 - 146 mmol/L 10/26/2024 4:11 AM EDT [facility] Blood, Arterial 10/26/2024 3 :31 AM EDT 10/26/2024 4:11 AM EDT us Semaj Mcnair III, MD POINT OF CARE TEST ORDERABLES Final Result Performing Organization Address [facility] Co de Phone Number [facility] [address] [facility]. [address] * (ABNORMAL) POC TCO2 (10/26/2024 3:31 AM EDT) POC TCO2, Arterial 19(L) 23 - 27 mmol/L 10/26/2024 4:11 AM EDT [facility] Blood, Arterial 10/26/2024 3 :31 AM EDT 10/26/2024 4:11 AM EDT us Semaj Mcnair III, MD POINT OF CARE TEST ORDERABLES Final Result [facility] [address] * POC O2 SAT (10/26/2024 3:31 AM EDT) POC O2 Saturation, Arterial 97 95 - 98 % 10/26/2024 4:11 AM EDT [facility] Blood, Arterial 10/26/2024 3 :31 AM EDT 10/26/2024 4:11 AM EDT us Semaj Mcnair III, MD POINT OF CARE TEST ORDERABLES Final Result [facility] [address] * (ABNORMAL) POC Base Excess (10/26/2024 3:31 AM EDT) POC Base Excess, Arterial -9(L) -2 - 3 mmol/L 10/26/2024 4:11 AM EDT [facility] Blood, Arterial 10/26/2024 3 :31 AM EDT 10/26/2024 4:11 AM EDT us Semaj Mcnair III, MD POINT OF CARE TEST ORDERABLES Final Result Performing Organization Address City/[facility]/ZIP Co de Phone Number [facility] [address] * (ABNORMAL) POC HCO3 (10/26/2024 3:31 AM EDT) POC HCO3, Arterial 18(L) 22 - 26 mmol/L 10/26/2024 4:11 AM EDT [facility] Blood, Arterial 10/26/2024 3 :31 AM EDT 10/26/2024 4:11 AM EDT us Semaj Mcnair III, MD POINT OF CARE TEST ORDERABLES Final Result [facility] [address] * (ABNORMAL) POC PO2 (10/26/2024 3:31 AM EDT) POC pO2, Arterial 104(H) 80 - 100 mm Hg 10/26/2024 4:11 AM EDT [facility] Blood, Arterial 10/26/2024 3 :31 AM EDT 10/26/2024 4:11 AM EDT us Semaj Mcnair III, MD POINT OF CARE TEST ORDERABLES Final Result [facility] [address] * POC PCO2 (10/26/2024 3:31 AM EDT) POC pCO2, Arterial 42 35 - 45 mm Hg 10/26/2024 4:11 AM EDT [facility] Blood, Arterial 10/26/2024 3 :31 AM EDT 10/26/2024 4:11 AM EDT us Semaj Mcnair III, MD POINT OF CARE TEST ORDERABLES Final Result Performing Organization Address City/[facility]/ZIP Co de Phone Number [facility] [address] * (ABNORMAL) POC pH (10/26/2024 3:31 AM EDT) POC pH, Arterial 7.24(L) 7.35 - 7.45 10/26/2024 4:11 AM EDT [facility] Blood, Arterial 10/26/2024 3 :31 AM EDT 10/26/2024 4:11 AM EDT us Semaj Mcnair III, MD POINT OF CARE TEST ORDERABLES Final Result [facility] [address] * (ABNORMAL) TEG-Global With Lysis (Baseline TEG with LY30, Will NOT Show Heparin Effect) (53:31 AM EDT) Citrated Kaolin Reaction Time (TEGLYSIS) 6.8 4.6 - 9.1 minutes 10/26/2024 5:02 AM EDT [facility] Citrated Rapid Teg Maximum Amplitude (TEGLYSIS) <40.0(L) 52.0 - 70.0 mm 10/26/2024 5:02 AM EDT [facility] Citrated Functional Fibrinogen Maximum Amplitude (TEGLYSIS) <4.0(L) 15.0 - 32.0 mm 10/26/2024 5:02 AM EDT [facility] Citrated Kaolin Percent Lysis (TEGLYSIS) 1.4 0.0 - 2.6 % 10/26/2024 5:02 AM EDT [facility] Whole Blood (Citrate) 10/26/2024 3:31 AM EDT 10/26/2024 3:40 AM EDT us Eber Quinones MD LAB BLOOD ORDERABLES Fin al Result [facility] [address] * (ABNORMAL) CBC (10/26/2024 3:31 AM EDT) WBC 9.5 3.8 - 10.8 10E3/uL 10/26/2024 3:48 AM EDT [facility] RBC 3.68(L) 4.20 - 5.80 10E6/uL 10/26/2024 3:48 AM EDT [facility] Hemoglobin 11.5(L) 13.2 - 17.1 g/dL 10/26/2024 3:48 AM EDT [facility] Hematocrit 33.0(L) 38.5 - 50.0 % 10/26/2024 3:48 AM EDT [facility] MCV 89.6 80.0 - 100.0 fL 10/26/2024 3:48 AM EDT [facility] MCH 31.1 27.0 - 33.0 pg 10/26/2024 3:48 AM EDT [facility] MCHC 34.8 32.0 - 36.0 g/dL 10/26/2024 3:48 AM EDT [facility] RDW 19.3(H) 11.0 - 15.0 % 10/26/2024 3:48 AM EDT [facility] Platelets 67(L) 140 - 400 10E3/uL 10/26/2024 3:48 AM EDT [facility] MPV 7.9 7.5 - 11.5 fL 10/26/2024 3:48 AM EDT [facility] Whole Blood 10/26/2024 3:31 AM EDT 10/26/2024 3:40 AM EDT Eber Quinones MD LAB BLOOD ORDERABLES Fin al Result Performing Organization Address [facility] de Phone Number [facility] [address] * (ABNORMAL) Protime-INR (10/26/2024 3:31 AM EDT) Protime 27.0(H) 12.1 - 15.1 seconds 10/26/2024 3:51 AM EDT [facility] INR 2.4(H) 0.9 - 1.1 10/26/2024 3:51 AM EDT [facility] Comment: RECOMMENDED THERAPEUTIC RANGES USING INR : Stable oral anticoagulant therapy: 2.0 - 3.0 Mechanical prosthetic heart valve: 2.5 - 3.5 Recurrent acute myocardial infarction: 2.5 - 3.5 Plasma 10/26/2024 3:31 AM EDT 10/26/2024 3:40 AM EDT Eber Quinones MD LAB BLOOD ORDERABLES Fin al Result Performing Organization Address [facility] Co de Phone Number [facility] [address] * (ABNORMAL) Fibrinogen (10/26/2024 3:31 AM EDT) Fibrinogen 104(L) 218 - 406 mg/dL 10/26/2024 3:56 AM EDT [facility] Plasma 10/26/2024 3:31 AM EDT 10/26/2024 3:40 AM EDT Eber Quinones MD LAB BLOOD ORDERABLES Fin al Result [facility] [address] [place] [address], [facility] * Transfuse Fresh Frozen Plasma (10/26/2024 3:16 [...] Transfuse RBC (10/26/2024 1:45 AM EDT) Result [facility] us Ben Blake MD NURSING TREATMENT ORDERABLES - BLOOD ADMIN Final Result * Transfuse RBC (10/26/2024 1:45 AM EDT) Result [facility] us Ben Blake MD NURSING TREATMENT ORDERABLES - BLOOD ADMIN Final Result * (ABNORMAL) POC INR (10/26/2024 1:43 AM EDT) Prothrombin Time INR, POC 1.9(H) 0.8 - 1.4 10/27/2024 6:51 AM EDT [facility] Comment: Test results may vary using different testing platforms. Serial result monitoring should be performed using the same methodology. RECOMMENDED THERAPEUTIC RANGES USING INR : Stable oral anticoagulant therapy: 2.0 - 3.0 Mechanical prosthetic heart valve: 2.5 - 3.5 Recurrent acute myocardial infarction: 2.5 - 3.5 Blood 10/26/2024 1:43 AM EDT 10/27/2024 6:51 AM EDT Result [facility] Semaj Mcnair III, MD POINT OF CARE TEST ORDERABLES Final Result [facility] [address] [id number], [facility] * Transfuse Fresh Frozen Plasma (10/26/2024 1:41 AM EDT) Result [facility] Ben Blake MD NURSING TREATMENT ORDERABLES - BLOOD ADMIN Final Result * Transfuse RBC (10/26/2024 1:40 AM EDT) Result [facility] us Ben Blake MD NURSING TREATMENT ORDERABLES - BLOOD ADMIN Final Result * POC Sample Type (10/26/2024 1:40 AM EDT) POC Sample Type Arterial 10/26/2024 2:32 AM EDT [facility] Blood, Arterial 10/26/2024 1 :40 AM EDT 10/26/2024 2:32 AM EDT Result [facility] us Semaj Mcnair III, MD POINT OF CARE TEST ORDERABLES Final Result Performing Organization Address [facility] Co de Phone Number [facility] [address] * POC Anion Gap (10/26/2024 1:40 AM EDT) POC Anion Gap, Arterial 13 3 - 16 mmol/L 10/26/2024 2:32 AM EDT [facility] Blood, Arterial 10/26/2024 1 :40 AM EDT 10/26/2024 2:32 AM EDT us Semaj Mcnair III, MD POINT OF CARE TEST ORDERABLES Final Result Performing Organization Address [facility] Co de Phone Number [facility] [address] [facility] * POC Chloride (10/26/2024 1:40 AM EDT) POC Chloride 104 98 - 110 mmol/L 10/26/2024 2:32 AM EDT [facility] Blood, Arterial 10/26/2024 1 :40 AM EDT 10/26/2024 2:32 AM EDT us Semaj Mcnair III, MD POINT OF CARE TEST ORDERABLES Final Result Performing Organization Address [facility] Co de Phone Number [facility] [address] [facility] * (ABNORMAL) POC Hemoglobin (10/26/2024 1:40 AM EDT) POC Hemoglobin 7.4(L) 14.0 - 18.0 g/dL 10/26/2024 2:32 AM EDT [facility] Blood, Arterial 10/26/2024 1 :40 AM EDT 10/26/2024 2:32 AM EDT us Semaj Mcnair III, MD POINT OF CARE TEST ORDERABLES Final Result Performing Organization Address City/[facility]/ZIP Co de Phone Number [facility] [address] * (ABNORMAL) POC hematocrit (10/26/2024 1:40 AM EDT) POC Hematocrit 22.0(L) 40 - 52 % 10/26/2024 2:32 AM EDT [facility] Blood, Arterial 10/26/2024 1 :40 AM EDT 10/26/2024 2:32 AM EDT us Semaj Mcnair III, MD POINT OF CARE TEST ORDERABLES Final Result Performing Organization Address [facility] de Phone Number [facility] [address] [facility]. [address] * (ABNORMAL) POC Lactate (10/26/2024 1:40 AM EDT) POC Lactate 2.30(H) 0.50 - 2.20 mmol/L 10/26/2024 2:32 AM EDT [facility] Blood, Arterial 10/26/2024 1 :40 AM EDT 10/26/2024 2:32 AM EDT us Semaj Mcnair III, MD POINT OF CARE TEST ORDERABLES Final Result Performing Organization Address [facility] de Phone Number [facility] [address] [facility]. [address] * (ABNORMAL) POC Glucose (10/26/2024 1:40 AM EDT) POC Glucose, Arterial 116(H) 70 - 100 mg/dL 10/26/2024 2:32 AM EDT [facility] Blood, Arterial 10/26/2024 1 :40 AM EDT 10/26/2024 2:32 AM EDT us Semaj Mcnair III, MD POINT OF CARE TEST ORDERABLES Final Result Performing Organization Address [facility]/ZIP Co de Phone Number [facility] [address] * (ABNORMAL) POC Ionized Calcium (10/26/2024 1:40 AM EDT) POC Ionized Calcium 4.10(L) 4.50 - 5.30 mg/dL 10/26/2024 2:32 AM EDT [facility] Blood, Arterial 10/26/2024 1 :40 AM EDT 10/26/2024 2:32 AM EDT us Semaj Mcnair III, MD POINT OF CARE TEST ORDERABLES Final Result Performing Organization Address City/[facility] Co de Phone Number [facility] [address] [facility]. [address] * (ABNORMAL) POC Potassium (10/26/2024 1:40 AM EDT) POC Potassium 2.6(LL) 3.5 - 5.3 mmol/L 10/26/2024 2:32 AM EDT [facility] Blood, Arterial 10/26/2024 1 :40 AM EDT 10/26/2024 2:32 AM EDT us Semaj Mcnair III, MD POINT OF CARE TEST ORDERABLES Final Result Performing Organization Address [facility] Co de Phone Number [facility] [address] [facility]. [address] * (ABNORMAL) POC Sodium (10/26/2024 1:40 AM EDT) POC Sodium 135(L) 136 - 146 mmol/L 10/26/2024 2:32 AM EDT [facility] Blood, Arterial 10/26/2024 1 :40 AM EDT 10/26/2024 2:32 AM EDT us Semaj Mcnair III, MD POINT OF CARE TEST ORDERABLES Final Result [facility] [address] * (ABNORMAL) POC TCO2 (10/26/2024 1:40 AM EDT) POC TCO2, Arterial 19(L) 23 - 27 mmol/L 10/26/2024 2:32 AM EDT [facility] Blood, Arterial 10/26/2024 1 :40 AM EDT 10/26/2024 2:32 AM EDT us Semaj Mcnair III, MD POINT OF CARE TEST ORDERABLES Final Result [facility] [address] * (ABNORMAL) POC O2 SAT (10/26/2024 1:40 AM EDT) POC O2 Saturation, Arterial 99(H) 95 - 98 % 10/26/2024 2:32 AM EDT [facility] Blood, Arterial 10/26/2024 1 :40 AM EDT 10/26/2024 2:32 AM EDT us Semaj Mcnair III, MD POINT OF CARE TEST ORDERABLES Final Result [facility] [address] * (ABNORMAL) POC Base Excess (10/26/2024 1:40 AM EDT) POC Base Excess, Arterial -7(L) -2 - 3 mmol/L 10/26/2024 2:32 AM EDT [facility] Blood, Arterial 10/26/2024 1 :40 AM EDT 10/26/2024 2:32 AM EDT us Semaj Mcnair III, MD POINT OF CARE TEST ORDERABLES Final Result [facility] [address] * (ABNORMAL) POC HCO3 (10/26/2024 1:40 AM EDT) POC HCO3, Arterial 18(L) 22 - 26 mmol/L 10/26/2024 2:32 AM EDT [facility] Blood, Arterial 10/26/2024 1 :40 AM EDT 10/26/2024 2:32 AM EDT Semaj Mcnair III, MD POINT OF CARE TEST ORDERABLES Final Result [facility] [address] * (ABNORMAL) POC PO2 (10/26/2024 1:40 AM EDT) POC pO2, Arterial 145(H) 80 - 100 mm Hg 10/26/2024 2:32 AM EDT [facility] Blood, Arterial 10/26/2024 1 :40 AM EDT 10/26/2024 2:32 AM EDT Semaj Mcnair III, MD POINT OF CARE TEST ORDERABLES Final Result Performing Organization Address City/[facility]/ZIP Co de Phone Number [facility] [address] * (ABNORMAL) POC PCO2 (10/26/2024 1:40 AM EDT) POC pCO2, Arterial 33(L) 35 - 45 mm Hg 10/26/2024 2:32 AM EDT [facility] Blood, Arterial 10/26/2024 1 :40 AM EDT 10/26/2024 2:32 AM EDT us Semaj Mcnair III, MD POINT OF CARE TEST ORDERABLES Final Result [facility] [address] * POC pH (10/26/2024 1:40 AM EDT) POC pH, Arterial 7.35 7.35 - 7.45 10/26/2024 2:32 AM EDT [facility] Blood, Arterial 10/26/2024 1 :40 AM EDT 10/26/2024 2:32 AM EDT us Semaj Mcnair III, MD POINT OF CARE TEST ORDERABLES Final Result Performing Organization Address [facility] Co de Phone Number [facility] [address] * Transfuse Fresh Frozen Plasma (10/26/2024 1:20 AM EDT) us Ben Blake MD NURSING TREATMENT ORDERABLES - BLOOD ADMIN Final Result * Transfuse RBC (10/26/2024 12:56 AM EDT) us Ben Blake MD NURSING TREATMENT ORDERABLES - BLOOD ADMIN Final Result * (ABNORMAL) POC INR (10/26/2024 12:41 AM EDT) Prothrombin Time INR, POC 2.0(H) 0.8 - 1.4 10/27/2024 6:51 AM EDT [facility] Comment: Test results may vary using [...] TEST ORDERABLES Final Result Performing Organization Address City/[facility] Co de Phone Number [facility] [address] * POC Sample Type (10/26/2024 12:39 AM EDT) Pathologist [facility] POC Sample Type Arterial 10/26/2024 1:38 AM EDT [facility] Blood, Arterial 10/26/2024 1 2:39 AM EDT 10/26/2024 1:38 AM EDT us Semaj Mcnair III, MD POINT OF CARE TEST ORDERABLES Final Result Performing Organization Address City/[facility]/ZIP Co de Phone Number [facility] [address] [place] [address]. [address] * POC Anion Gap (10/26/2024 12:39 AM EDT) [facility] POC Anion Gap, Arterial 13 3 - 16 mmol/L 10/26/2024 1:38 AM EDT [facility] Blood, Arterial 10/26/2024 1 2:39 AM EDT 10/26/2024 1:38 AM EDT us Semaj Mcnair III, MD POINT OF CARE TEST ORDERABLES Final Result Performing Organization Address City/[facility] Co de Phone Number [facility] [address] [place] [address]. [address] * POC Chloride (10/26/2024 12:39 AM EDT) [facility] POC Chloride 103 98 - 110 mmol/L 10/26/2024 1:38 AM EDT [facility] Blood, Arterial 10/26/2024 1 2:39 AM EDT 10/26/2024 1:38 AM EDT us Semaj Mcnair III, MD POINT OF CARE TEST ORDERABLES Final Result Performing Organization Address City/[facility] Co de Phone Number [facility] [address] [place] [address]. [address] * (ABNORMAL) POC Hemoglobin (10/26/2024 12:39 AM EDT) [facility] POC Hemoglobin 7.9(L) 14.0 - 18.0 g/dL 10/26/2024 1:38 AM EDT [facility] Blood, Arterial 10/26/2024 1 2:39 AM EDT 10/26/2024 1:38 AM EDT us Semaj Mcnair III, MD POINT OF CARE TEST ORDERABLES Final Result Performing Organization Address City/[facility]/ZIP Co de Phone Number [facility] [address] [facility]. [address] * (ABNORMAL) POC hematocrit (10/26/2024 12:39 AM EDT) POC Hematocrit 23.0(L) 40 - 52 % 10/26/2024 1:38 AM EDT [facility] Blood, Arterial 10/26/2024 1 2:39 AM EDT 10/26/2024 1:38 AM EDT us Semaj Mcnair III, MD POINT OF CARE TEST ORDERABLES Final Result Performing Organization Address [facility] Co de Phone Number [facility] [address] [facility] * POC Lactate (10/26/2024 12:39 AM EDT) POC Lactate 1.39 0.50 - 2.20 mmol/L 10/26/2024 1:38 AM EDT [facility] Blood, Arterial 10/26/2024 1 2:39 AM EDT 10/26/2024 1:38 AM EDT us Semaj Mcnair III, MD POINT OF CARE TEST ORDERABLES Final Result Performing Organization Address City/[facility] Co de Phone Number [facility] [address] [facility] * (ABNORMAL) POC Glucose (10/26/2024 12:39 AM EDT) POC Glucose, Arterial 116(H) 70 - 100 mg/dL 10/26/2024 1:38 AM EDT [facility] Blood, Arterial 10/26/2024 1 2:39 AM EDT 10/26/2024 1:38 AM EDT us Semaj Mcnair III, MD POINT OF CARE TEST ORDERABLES Final Result Performing Organization Address City/[facility]/ZIP Co de Phone Number [facility] [address] [place] [address]. [address] * (ABNORMAL) POC Ionized Calcium (10/26/2024 12:39 AM EDT) POC Ionized Calcium 4.30(L) 4.50 - 5.30 mg/dL 10/26/2024 1:38 AM EDT [facility] Blood, Arterial 10/26/2024 1 2:39 AM EDT 10/26/2024 1:38 AM EDT us Semaj Mcnair III, MD POINT OF CARE TEST ORDERABLES Final Result Performing Organization Address [facility] Co de Phone Number [facility] [address] [facility] * (ABNORMAL) POC Potassium (10/26/2024 12:39 AM EDT) POC Potassium 2.4(LL) 3.5 - 5.3 mmol/L 10/26/2024 1:38 AM EDT [facility] Blood, Arterial 10/26/2024 1 2:39 AM EDT 10/26/2024 1:38 AM EDT us Semaj Mcnair III, MD POINT OF CARE TEST ORDERABLES Final Result Performing Organization Address City/[facility] Co de Phone Number [facility] [address] [facility] * POC Sodium (10/26/2024 12:39 AM EDT) POC Sodium 136 136 - 146 mmol/L 10/26/2024 1:38 AM EDT [facility] Blood, Arterial 10/26/2024 1 2:39 AM EDT 10/26/2024 1:38 AM EDT us Semaj Mcnair III, MD POINT OF CARE TEST ORDERABLES Final Result Performing Organization Address City/[facility]/ZIP Co de Phone Number [facility] [address] * (ABNORMAL) POC TCO2 (10/26/2024 12:39 AM EDT) POC TCO2, Arterial 21(L) 23 - 27 mmol/L 10/26/2024 1:38 AM EDT [facility] Blood, Arterial 10/26/2024 1 2:39 AM EDT 10/26/2024 1:38 AM EDT us Semaj Mcnair III, MD POINT OF CARE TEST ORDERABLES Final Result Performing Organization Address [facility] Co de Phone Number [facility] [address] [facility]. [address] * POC O2 SAT (10/26/2024 12:39 AM EDT) POC O2 Saturation, Arterial 98 95 - 98 % 10/26/2024 1:38 AM EDT [facility] Blood, Arterial 10/26/2024 1 2:39 AM EDT 10/26/2024 1:38 AM EDT us Semaj Mcnair III, MD POINT OF CARE TEST ORDERABLES Final Result Performing Organization Address City/[facility] Co de Phone Number [facility] [address] [facility] * (ABNORMAL) POC Base Excess (10/26/2024 12:39 AM EDT) POC Base Excess, Arterial -7(L) -2 - 3 mmol/L 10/26/2024 1:38 AM EDT [facility] Blood, Arterial 10/26/2024 1 2:39 AM EDT 10/26/2024 1:38 AM EDT us Semaj Mcnair III, MD POINT OF CARE TEST ORDERABLES Final Result Performing Organization Address City/[facility] Co de Phone Number [facility] [address] [facility] * (ABNORMAL) POC HCO3 (10/26/2024 12:39 AM EDT) POC HCO3, Arterial 20(L) 22 - 26 mmol/L 10/26/2024 1:38 AM EDT [facility] Blood, Arterial 10/26/2024 1 2:39 AM EDT 10/26/2024 1:38 AM EDT us Semaj Mcnair III, MD POINT OF CARE TEST ORDERABLES Final Result Performing Organization Address [facility] Co de Phone Number [facility] [address] * (ABNORMAL) POC PO2 (10/26/2024 12:39 AM EDT) POC pO2, Arterial 117(H) 80 - 100 mm Hg 10/26/2024 1:38 AM EDT [facility] Blood, Arterial 10/26/2024 1 2:39 AM EDT 10/26/2024 1:38 AM EDT us Semaj Mcnair III, MD POINT OF CARE TEST ORDERABLES Final Result Performing Organization Address City/[facility] [facility] Co de Phone Number [facility] [address] [facility]. [address] * (ABNORMAL) POC PCO2 (10/26/2024 12:39 AM EDT) POC pCO2, Arterial 46(H) 35 - 45 mm Hg 10/26/2024 1:38 AM EDT [facility] Blood, Arterial 10/26/2024 1 2:39 AM EDT 10/26/2024 1:38 AM EDT us Semaj Mcnair III, MD POINT OF CARE TEST ORDERABLES Final Result Performing Organization Address [facility] Co de Phone Number [facility] [address] [facility]. [address] * (ABNORMAL) POC pH (10/26/2024 12:39 AM EDT) POC pH, Arterial 7.24(L) 7.35 - 7.45 10/26/2024 1:38 AM EDT [facility] Blood, Arterial 10/26/2024 1 2:39 AM EDT 10/26/2024 1:38 AM EDT us Semaj Mcnair III, MD POINT OF CARE TEST ORDERABLES Final Result Performing Organization Address [facility] Co de Phone Number [facility] [address] [facility] * Transfuse Platelets (10/26/2024 12:37 AM EDT) Result [facility] Ben Blake MD NURSING TREATMENT ORDERABLES - BLOOD ADMIN Final Result * Transfuse RBC (10/26/2024 12:31 AM EDT) Result [facility] Ben Blake MD NURSING TREATMENT ORDERABLES [...] AM EDT) Gram Stain Result Cytospin Results: [facility] Gram Stain Result Polymorphonuclear Leukocytes Seen; [facility] Gram Stain Result No Organisms Seen; [facility] Culture Result No Growth After 3 Days [facility] Surgical Swab ABDOMEN / Unknown 12:03 AM EDT Comment:2.) Ascites Anaerobhic culture Fungus culture Routine culture plus stain Narrative [facility] - 10/28/2024 9:38 PM EDT 2.) Ascites Anaerobhic culture Fungus culture Routine culture plus stain 2.) Ascites Semaj Mcnair III, MD MICROBIOLOGY - GENE RAL ORDERABLES Final Result [facility] [address] [place] [address], [facility] * Surgical Pathology Exam (10/26/2024 12:00 AM EDT) 10/26/2024 10/27/2024 Narrative [facility] - 10/26/2024 12:00 AM EDT CASE: [id number] PATIENT: BLAIR GILBERT Clinical History: Liver - kidney transplant Pre-Operative Diagnosis: Alcoholic cirrhosis of liver Post-Operative Diagnosis: Alcoholic cirrhosis of liver Specimen(s) Submitted: A. elem liver CPT Code(s): 49625 X 1; 07929 X 5 Additional Information: FINAL DIAGNOSIS: A. 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 - Negative for neoplasm. - Increased hepatocellular iron deposition (3+; Modified Scheuer). Gall bladder: -Intramucosal and submucosal vascular congestion and hemorrhage. - Negative for dysplasia or malignancy. Gross Description: Received in formalin, labeled Blair Gilbert and elem liver , is a 2338-gram, hepatectomy specimen [...] discrete masses or other lesions are identified. Senior Support Analyst sections are submitted in cassettes [id number] as follows: A1: Hilar margins, en face. [...] at [facility], [address] [place] [address], [facility] [phone], CLIA ID: [id number] us Semaj Mcnair III, MD PATHOLOGY/CYTOLOGY ORDERABLES [...] POC INR (10/25/2024 11:43 PM EDT) Pathologist [facility] Prothrombin Time INR, POC 1.7(H) 0.8 - [...] POINT OF CARE TEST ORDERABLES Final Result [facility] [address] * POC Sample Type (10/25/2024 11:40 PM EDT) [facility] POC Sample Type Arterial 10/25/2024 11:57 PM EDT [facility] Blood, Arterial 10/25/2024 1 1:40 PM EDT 10/25/2024 11:57 PM EDT Semaj Mcnair III, MD POINT OF CARE TEST ORDERABLES Final Result [facility] [address] * POC Anion Gap (10/25/2024 11:40 PM EDT) Pathologist [facility] POC Anion Gap, Arterial 13 3 - 16 mmol/L 10/25/2024 11:57 PM EDT [facility] Blood, Arterial 10/25/2024 1 1:40 PM EDT 10/25/2024 11:57 PM EDT us Semaj Mcnair III, MD POINT OF CARE TEST ORDERABLES Final Result [facility] [address] [facility]. [address] * POC Chloride (10/25/2024 11:40 PM EDT) POC Chloride 102 98 - 110 mmol/L 10/25/2024 11:57 PM EDT [facility] Blood, Arterial 10/25/2024 1 1:40 PM EDT 10/25/2024 11:57 PM EDT us Semaj Mcnair III, MD POINT OF CARE TEST ORDERABLES Final Result Performing Organization Address [facility]/ZIP Co de Phone Number [facility] [address] [facility] * (ABNORMAL) POC Hemoglobin (10/25/2024 11:40 PM EDT) POC Hemoglobin 6.6(L) 14.0 - 18.0 g/dL 10/25/2024 11:57 PM EDT [facility] Blood, Arterial 10/25/2024 1 1:40 PM EDT 10/25/2024 11:57 PM EDT us Semaj Mcnair III, MD POINT OF CARE TEST ORDERABLES Final Result Performing Organization Address City/[facility]/ZIP Co de Phone Number [facility] [address] [facility]. [address] * (ABNORMAL) POC hematocrit (10/25/2024 11:40 PM EDT) POC Hematocrit 19.0(L) 40 - 52 % 10/25/2024 11:57 PM EDT [facility] Blood, Arterial 10/25/2024 1 1:40 PM EDT 10/25/2024 11:57 PM EDT us Semaj Mcnair III, MD POINT OF CARE TEST ORDERABLES Final Result [facility] [address] [facility]. [address] * POC Lactate (10/25/2024 11:40 PM EDT) Pathologist [facility] POC Lactate 1.36 0.50 - 2.20 mmol/L 10/25/2024 11:57 PM EDT [facility] Blood, Arterial 10/25/2024 1 1:40 PM EDT 10/25/2024 11:57 PM EDT Semaj Mcnair III, MD POINT OF CARE TEST ORDERABLES Final Result Performing Organization Address City/[facility]/ZIP Co de Phone Number [facility] [address] [facility] * (ABNORMAL) POC Glucose (10/25/2024 11:40 PM EDT) Pathologist [facility] POC Glucose, Arterial 101(H) 70 - 100 mg/dL 10/25/2024 11:57 PM EDT [facility] Blood, Arterial 10/25/2024 1 1:40 PM EDT 10/25/2024 11:57 PM EDT Semaj Mcnair III, MD POINT OF CARE TEST ORDERABLES Final Result [facility] [address] [facility] * POC Ionized Calcium (10/25/2024 11:40 PM EDT) Pathologist [facility] POC Ionized Calcium 4.50 4.50 - 5.30 mg/dL 10/25/2024 11:57 PM EDT [facility] Blood, Arterial 10/25/2024 1 1:40 PM EDT 10/25/2024 11:57 PM EDT us Semaj Mcnair III, MD POINT OF CARE TEST ORDERABLES Final Result [facility] [address] [place] [address]. [address] * (ABNORMAL) POC Potassium (10/25/2024 11:40 PM EDT) POC Potassium 1.9(LL) 3.5 - 5.3 mmol/L 10/25/2024 11:57 PM EDT [facility] Blood, Arterial 10/25/2024 1 1:40 PM EDT 10/25/2024 11:57 PM EDT us Semaj Mcnair III, MD POINT OF CARE TEST ORDERABLES Final Result Performing Organization Address [facility]/ZIP Co de Phone Number [facility] [address] [facility]. [address] * (ABNORMAL) POC Sodium (10/25/2024 11:40 PM EDT) POC Sodium 135(L) 136 - 146 mmol/L 10/25/2024 11:57 PM EDT [facility] Blood, Arterial 10/25/2024 1 1:40 PM EDT 10/25/2024 11:57 PM EDT Semaj Mcnair III, MD POINT OF CARE TEST ORDERABLES Final Result [facility] [address] [facility]. [address] * (ABNORMAL) POC TCO2 (10/25/2024 11:40 PM EDT) POC TCO2, Arterial 21(L) 23 - 27 mmol/L 10/25/2024 11:57 PM EDT [facility] Blood, Arterial 10/25/2024 1 1:40 PM EDT 10/25/2024 11:57 PM EDT us Semaj Mcnair III, MD POINT OF CARE TEST ORDERABLES Final Result [facility] [address] * POC O2 SAT (10/25/2024 11:40 PM EDT) POC O2 Saturation, Arterial 98 95 - 98 % 10/25/2024 11:57 PM EDT [facility] Blood, Arterial 10/25/2024 1 1:40 PM EDT 10/25/2024 11:57 PM EDT Semaj Mcnair III, MD POINT OF CARE TEST ORDERABLES Final Result Performing Organization Address City/[facility]/ZIP Co de Phone Number [facility] [address] [facility] * (ABNORMAL) POC Base Excess (10/25/2024 11:40 PM EDT) POC Base Excess, Arterial -6(L) -2 - 3 mmol/L 10/25/2024 11:57 PM EDT [facility] Blood, Arterial 10/25/2024 1 1:40 PM EDT 10/25/2024 11:57 PM EDT Semaj Mcnair III, MD POINT OF CARE TEST ORDERABLES Final Result [facility] [address] [facility] * (ABNORMAL) POC HCO3 (10/25/2024 11:40 PM EDT) POC HCO3, Arterial 20(L) 22 - 26 mmol/L 10/25/2024 11:57 PM EDT [facility] Blood, Arterial 10/25/2024 1 1:40 PM EDT 10/25/2024 11:57 PM EDT us Semaj Mcnair III, MD POINT OF CARE TEST ORDERABLES Final Result Performing Organization Address City/[facility] Co de Phone Number [facility] [address] [facility]. [address] * (ABNORMAL) POC PO2 (10/25/2024 11:40 PM EDT) POC pO2, Arterial 107(H) 80 - 100 mm Hg 10/25/2024 11:57 PM EDT [facility] Blood, Arterial 10/25/2024 1 1:40 PM EDT 10/25/2024 11:57 PM EDT us Semaj Mcnair III, MD POINT OF CARE TEST ORDERABLES Final Result Performing Organization Address [facility] Co de Phone Number [facility] [address] [facility] * POC PCO2 (10/25/2024 11:40 PM EDT) POC pCO2, Arterial 41 35 - 45 mm Hg 10/25/2024 11:57 PM EDT [facility] Blood, Arterial 10/25/2024 1 1:40 PM EDT 10/25/2024 11:57 PM EDT us Semaj Mcnair III, MD POINT OF CARE TEST ORDERABLES Final Result Performing Organization Address City/[facility] Co de Phone Number [facility] [address] [facility] * (ABNORMAL) POC pH (10/25/2024 11:40 PM EDT) POC pH, Arterial 7.29(L) 7.35 - 7.45 10/25/2024 11:57 PM EDT [facility] Blood, Arterial 10/25/2024 1 1:40 PM EDT 10/25/2024 11:57 PM EDT Semaj Mcnair III, MD POINT OF CARE TEST ORDERABLES Final Result [facility] [address] [facility]. [address] * Urine culture (10/25/2024 11:08 PM EDT) Culture Result <1,000 cfu/mL [facility] Culture Result Skin/Urogeni rony Mckayla. No Further Workup. [facility] Newly Placed Berkowitz Urine URINE SPECIMEN / Unknown 10/25/2024 11:08 PM EDT Comment:urine culture Narrative [facility] - 10/28/2024 9:59 AM EDT urine culture urine culture Semaj Mcnair III, MD MICROBIOLOGY - GENE RAL ORDERABLES Final Result Performing Organization Address City/[facility]/ZIP Co de Phone Number [facility] [address] [facility]. [address] * X-ray Portable Chest (10/25/2024 10:19 [...] - 2.2 mmol/L 10/25/2024 10:39 PM EDT [facility] Plasma 10/25/2024 10:1 7 PM EDT 10/25/2024 10:17 PM EDT Ben Blake MD LAB BLOOD ORDERABLES Final Re sult [facility] [address] [place] [address], [facility] * (ABNORMAL) Ferritin (10/25/2024 10:17 PM EDT) Ferritin 623.2(H) 23.9 - 336.2 ng/mL 10/25/2024 11:02 PM EDT [facility] Serum 10/25/2024 10:1 7 PM EDT 10/25/2024 10:17 PM EDT us Leandra Og MD LAB BLOOD ORDERABLES F inal Result [facility] [address] [facility]. [address] * Iron Studies (Iron + TIBC) (10/25/2024 10:17 PM EDT) Iron 128 50 - 212 ug/dL 10/25/2024 10:44 PM EDT [facility] % Iron Saturation SEE COMMENT 15.0 - 55.0 % 10/25/2024 10:44 PM EDT [facility] Comment:Unable to calculate result because contributing result outside reportable range.. TIBC SEE COMMENT 261 - 462 ug/dL 10/25/2024 10:44 PM EDT [facility] Comment:Unable to calculate result because contributing result outside reportable range.. Serum 10/25/2024 10:1 7 PM EDT 10/25/2024 10:17 PM EDT us Leandra Og MD LAB BLOOD ORDERABLES F inal Result Performing Organization Address City/[facility]/ZIP Co de Phone Number [facility] [address] [facility]. [address] * PTH (10/25/2024 10:17 PM EDT) PTH 36.0 12.0 - 88.0 pg/mL 10/25/2024 11:01 PM EDT [facility] Serum 10/25/2024 10:1 7 PM EDT 10/25/2024 10:17 PM EDT us Leandra Og MD LAB BLOOD ORDERABLES F inal Result [facility] [address] [facility]. [address] * HIV 1+2 Antibody/Antigen with Reflex (10/25/2024 10:17 PM EDT) HIV 1+2 AB/AGN Nonreactive Nonreactive 10/25/2024 11:03 PM EDT [facility] Serum 10/25/2024 10:1 7 PM EDT 10/25/2024 10:16 PM EDT [facility] - 10/25/2024 11:03 PM EDT \HIVRNR Leandra Og MD LAB BLOOD ORDERABLES F inal Result Performing Organization Address [facility] Co de Phone Number [facility] [address] [place] [address]. [address] * Hepatitis B Core Antibody (10/25/2024 10:17 PM EDT) Hep B Core Total Ab Nonreactive Nonreactive 10/25/2024 11:07 PM EDT [facility] Comment:Health Department no tified in accordance with reportable infectious disease guidelines. Serum 10/25/2024 10:1 7 PM EDT 10/25/2024 10:17 PM EDT [facility] - 10/25/2024 11:07 PM EDT A nonreactive final interpretation indicates that anti-HBc antibodies were not detected in the sample; it is possible that the individual is not infected with HBV. us Leandra Og MD LAB BLOOD ORDERABLES F inal Result Performing Organization Address City/[facility] Co de Phone Number [facility] [address] [place] [address]. [address] * Hepatitis C Antibody (10/25/2024 10:17 PM EDT) HCV Ab Nonreactive Nonreactive 10/25/2024 11:16 PM EDT [facility] Comment:Health Department no tified in accordance with reportable infectious disease guidelines. Serum 10/25/2024 10:1 7 PM EDT 10/25/2024 10:17 PM EDT [facility] - 10/25/2024 11:16 PM EDT Antibodies to HCV not detected; does not exclude the possibility of exposure to HCV. us Leandra Og MD LAB BLOOD ORDERABLES F inal Result Performing Organization Address City/[facility] Co de Phone Number [facility] [address] [facility]. [address] * (ABNORMAL) Hepatitis B Surface Antibody, Quantitati (10/25/2024 10:17 PM EDT) [facility] HBSAB NUMBER 10.70(H) 0.00 - 9.99 mIU/mL 10/25/2024 11:52 PM EDT [facility] Hep B S Ab Equivocal (A) Nonreactive 10/25/2024 11:52 PM EDT [facility] Serum 10/25/2024 10:1 7 PM EDT 10/25/2024 10:17 PM EDT Leandra Og MD LAB BLOOD ORDERABLES F inal Result Performing Organization Address [facility] Co de Phone Number [facility] [address] [facility]. [address] * Hepatitis B surface antigen (10/25/2024 10:17 PM EDT) [facility] Hep B Surface Ag Nonreactive Nonreactive 10/25/2024 11:12 PM EDT [facility] Comment:Health Department no tified in accordance with reportable infectious disease guidelines. Serum 10/25/2024 10:1 7 PM EDT 10/25/2024 10:17 PM EDT Narrative [facility] - 10/25/2024 11:12 PM EDT Specimen is considered negative for HBsAg. us Leandra Og MD LAB BLOOD ORDERABLES F inal Result Performing Organization Address City/[facility] Co de Phone Number [facility] [address] [facility]. [address] * Hepatitis A Antibody Total (10/25/2024 10:17 PM EDT) Anti-HAV Total (IgG + IgM) Nonreactive 10/25/2024 11:13 PM EDT [facility] Serum 10/25/2024 10:1 7 PM EDT 10/25/2024 10:17 PM EDT Narrative [facility] - 10/25/2024 11:13 PM EDT HAV antibodies not detected Leandra Og MD LAB BLOOD ORDERABLES F inal Result Performing Organization Address [facility]/ZIP Co de Phone Number [facility] [address] [facility]. [address] * (ABNORMAL) Hepatic Function Panel (10/25/2024 10:17 PM EDT) Total Bilirubin 9.1(H) 0.0 - 1.5 mg/dL 10/25/2024 10:47 PM EDT [facility] Bilirubin, Direct 4.58(H) 0.00 - 0.40 mg/dL 10/25/2024 10:47 PM EDT [facility] AST 51(H) 13 - 39 U/L 10/25/2024 10:47 PM EDT [facility] ALT 23 7 - 52 U/L 10/25/2024 10:47 PM EDT [facility] Alkaline Phosphatase 144(H) 36 - 125 U/L 10/25/2024 10:47 PM EDT [facility] Total Protein 5.5(L) 6.4 - 8.9 g/dL 10/25/2024 10:47 PM EDT [facility] Albumin 3.5 3.5 - 5.7 g/dL 10/25/2024 10:47 PM EDT [facility] Bilirubin, Indirect 4.52(H) 0.00 - 1.10 mg/dL 10/25/2024 10:47 PM EDT [facility] Plasma 10/25/2024 10:1 7 PM EDT 10/25/2024 10:17 PM EDT Leandra Og MD LAB BLOOD ORDERABLES F inal Result [facility] [address] * (ABNORMAL) Renal Function Panel w/EGFR (10/25/2024 10:17 PM EDT) Sodium 137 133 - 146 mmol/L 10/25/2024 10:47 PM EDT [facility] Potassium 2.1(LL) 3.5 - 5.3 mmol/L 10/25/2024 10:47 PM EDT [facility] Comment:Critical Result K:2. 1 Called to and read back by: ALICIA CARCAMO RN at: 10/25/2024 22:47:45 by:NANCY Chloride 100 98 - 110 mmol/L 10/25/2024 10:47 PM EDT [facility] CO2 20(L) 21 - 33 mmol/L 10/25/2024 10:47 PM EDT [facility] Anion Gap 17(H) 3 - 16 mmol/L 10/25/2024 10:47 PM EDT [facility] BUN 74(H) 7 - 25 mg/dL 10/25/2024 10:47 PM EDT [facility] Creatinine 3.87(H) 0.60 - 1.30 mg/dL 10/25/2024 10:47 PM EDT [facility] Glucose 114(H) 70 - 100 mg/dL 10/25/2024 10:47 PM EDT [facility] Calcium 9.3 8.6 - 10.3 mg/dL 10/25/2024 10:47 PM EDT [facility] Phosphorus 5.9(H) 2.1 - 4.7 mg/dL 10/25/2024 10:47 PM EDT [facility] Albumin 3.5 3.5 - 5.7 g/dL 10/25/2024 10:47 PM EDT [facility] Osmolality, Calculated 307(H) 278 - 305 mOsm/kg 10/25/2024 10:47 PM EDT [facility] EGFR 19 10/25/2024 10:47 PM EDT [facility] Comment:As of 2021, the estimated GFR [...] ORDERABLES F inal Result Performing Organization Address City/[facility]/ZIP Co de Phone Number [facility] [address] [facility]. [address] * (ABNORMAL) APTT, NO ANTICOAGULANT (10/25/2024 10:17 PM EDT) aPTT 41.7(H) 25.5 - 35.0 seconds 10/25/2024 10:36 PM EDT [facility] Plasma 10/25/2024 10:1 7 PM EDT 10/25/2024 10:17 PM EDT Leandra Og MD LAB BLOOD ORDERABLES F inal Result Performing Organization Address City/[facility]/ZIP Co de Phone Number [facility] [address] [facility]. [address] * (ABNORMAL) Protime-INR (10/25/2024 10:17 PM EDT) Protime 21.7(H) 12.1 - 15.1 seconds 10/25/2024 10:35 PM EDT [facility] INR 1.8(H) 0.9 - 1.1 10/25/2024 10:35 PM EDT [facility] Comment: RECOMMENDED THERAPEUTIC RANGES USING INR : Stable oral anticoagulant therapy: 2.0 - 3.0 Mechanical prosthetic heart valve: 2.5 - 3.5 Recurrent acute myocardial infarction: 2.5 - 3.5 Plasma 10/25/2024 10:1 7 PM EDT 10/25/2024 10:17 PM EDT us Leandra Og MD LAB BLOOD ORDERABLES F inal Result [facility] [address] [place], [place] [address] * (ABNORMAL) Differential (10/25/2024 10:17 PM EDT) Differential Comments See Note 10/25/2024 10:54 PM EDT [facility] Comment: _Platelets Appear Decreased _Platelet Morphology Normal Scan Result PERFORMED 10/25/2024 10:54 PM EDT [facility] Neutrophils Relative 79.8 40.0 - 80.0 % 10/25/2024 10:54 PM EDT [facility] Lymphocytes Relative 9.6(L) 15.0 - 45.0 % 10/25/2024 10:54 PM EDT [facility] Monocytes Relative 8.9 0.0 - 12.0 % 10/25/2024 10:54 PM EDT [facility] Eosinophils Relative 1.3 0.0 - 8.0 % 10/25/2024 10:54 PM EDT [facility] Basophils Relative 0.4 0.0 - 1.0 % 10/25/2024 10:54 PM EDT [facility] nRBC 0 0 - 0 /100 WBC 10/25/2024 10:54 PM EDT [facility] Neutrophils Absolute 4,948 1,520 - 8,640 /uL 10/25/2024 10:54 PM EDT [facility] Lymphocytes Absolute 595 570 - 4,860 /uL 10/25/2024 10:54 PM EDT [facility] Monocytes Absolute 552 0 - 1,296 /uL 10/25/2024 10:54 PM EDT [facility] Eosinophils Absolute 81 0 - 864 /uL 10/25/2024 10:54 PM EDT [facility] Basophils Absolute 25 0 - 108 /uL 10/25/2024 10:54 PM EDT [facility] PLT Morphology Platelet morphology appears normal 10/25/2024 10:54 PM EDT [facility] Whole Blood 10/25/2024 10:1 7 PM EDT 10/25/2024 10:17 PM EDT us Leandra Og MD LAB BLOOD ORDERABLES F inal Result [facility] [address] [place] [address], [facility] * (ABNORMAL) CBC (10/25/2024 10:17 PM EDT) WBC 6.2 3.8 - 10.8 10E3/uL 10/25/2024 10:54 PM EDT [facility] RBC 2.40(L) 4.20 - 5.80 10E6/uL 10/25/2024 10:54 PM EDT [facility] Hemoglobin 8.3(L) 13.2 - 17.1 g/dL 10/25/2024 10:54 PM EDT [facility] Hematocrit 23.7(L) 38.5 - 50.0 % 10/25/2024 10:54 PM EDT [facility] MCV 98.9 80.0 - 100.0 fL 10/25/2024 10:54 PM EDT [facility] MCH 34.6(H) 27.0 - 33.0 pg 10/25/2024 10:54 PM EDT [facility] MCHC 35.0 32.0 - 36.0 g/dL 10/25/2024 10:54 PM EDT [facility] RDW 17.8(H) 11.0 - 15.0 % 10/25/2024 10:54 PM EDT [facility] Platelets 56(L) 140 - 400 10E3/uL 10/25/2024 10:54 PM EDT [facility] Comment: Specimen checked for clots. None detected. Slide Reviewed for PLT Clumps. None Seen. Platelet Estimate Decreased 10/25/2024 10:54 PM EDT [facility] MPV 8.1 7.5 - 11.5 fL 10/25/2024 10:54 PM EDT [facility] Whole Blood 10/25/2024 10:1 7 PM EDT 10/25/2024 10:17 PM EDT Narrative [facility]ALTH [facility] - 10/25/2024 10:54 PM EDT Peripheral blood smear was scanned per review criteria approved by the laboratory vice president medical affairs. us Leandra Og MD LAB BLOOD ORDERABLES F inal Result Performing Organization Address [facility] de Phone Number [facility] [address] [place] [address] * Donor Specific Antibody (DSA) (10/25/2024 10:00 PM EDT) Pathologist [facility] AntiDonor Antibodies The request and specimen(s) for this test have been received and transported to the [facility] [place] at [address] [place] [address]. The [facility] will report results directly to the client. 10/25/2024 10:20 PM EDT [facility] Comment:Testing performed by [facility], [facility], [address] [place] [address]. The [facility] report has been forwarded to the appropriate ordering location. Please refer to this report for patient results. Serum 10/25/2024 10:0 0 PM EDT 10/25/2024 10:20 PM EDT Leandra Og MD LAB BLOOD ORDERABLES F inal Result Performing Organization Address [facility] Co de Phone Number [facility] [address] [place] [address] * (ABNORMAL) Venous Blood Gas, Line/Syringe (10/25/2024 10:00 PM EDT) PH-Line Draw 7.38 7.32 - 7.42 10/25/2024 10:08 PM EDT [facility] PCO2-Line Draw 33(L) 41 - 51 mm Hg 10/25/2024 10:08 PM EDT [facility] PO2-Line Draw 33 25 - 40 mm Hg 10/25/2024 10:08 PM EDT [facility] HCO3-Line Draw 20(L) 24 - 28 mmol/L 10/25/2024 10:08 PM EDT [facility] CO2 Content-Line Draw 21(L) 25 - 29 mmol/L 10/25/2024 10:08 PM EDT [facility] Base Excess-Line Draw -5.0(L) -2.0 - 3.0 mmol/L 10/25/2024 10:08 PM EDT [facility] %HBO2-Line Draw 53.8 40.0 - 70.0 % 10/25/2024 10:08 PM EDT [facility] Carboxyhgb-Ludivina e Draw 1.9 % 10/25/2024 10:08 PM EDT [facility] Comment: CARBOXYHEMOGLOBIN (CO) REFERENCE RANGES: Non-Smokers: <2 % Smokers: <8 % TOXIC: >20 % Methemoglobin- Line Draw 0.2 0.0 - 1.5 % 10/25/2024 10:08 PM EDT [facility] Reduced Hemoglobin-Ludivina e Draw 44.1(H) 0.0 - 5.0 % 10/25/2024 10:08 PM EDT [facility] Venous, Line Draw 10/25/2024 10:00 PM EDT 10/25/2024 10:04 PM EDT us Leandra Og MD LAB BLOOD ORDERABLES F inal Result [facility] [address] * (ABNORMAL) POC Glucose Monitoring Device (10/25/2024 9:56 PM EDT) POC Glucose Monitoring Device 103(H) 70 - 100 mg/dL 10/25/2024 9:58 PM EDT [facility] Blood 10/25/2024 9:56 PM EDT 10/25/2024 9:57 PM EDT us Semaj Mcnair III, MD POINT OF CARE TEST ORDERABLES Final Result Performing Organization Address City/[facility]/ZIP Co de Phone Number [facility] [address] * ECG 12 lead (MUSE) (10/25/2024 9:34 PM EDT) 10/25/2024 9:34 PM EDT Narrative MUSE - 10/27/2024 10:08 AM EDT Ventricular Rate: 97 BPM Atrial Rate: 86 BPM QRS Duration: 106 ms QT: 532 ms QTc: 675 ms P [place]: 38 degrees R [place]: -29 degrees T [place]: 32 degrees Diagnosis Line: Critical Test Result: Long QTc , AV Block ^ SINUS RHYTHM WITH PREMATURE VENTRICULAR COMPLEXES ^ PROLONGED QT ^ NONSPECIFIC ST AND T WAVE CHANGES ^ ABNORMAL ECG ^ ^ Confirmed by MD HA, ERICK ([id number]) on 10/27/2024 10:08:26 AM Leandra Og MD ECG ORDERABLES Final Result Performing Organization Address City/[facility] Co de Phone Number MUSE * Hepatitis C RNA, Quant Reflex to Genotyp (10/25/2024 8:18 PM EDT) Pathologist [employer] Units Not Detected IU/mL 10/27/2024 11:03 AM EDT [facility] Comment:Test methodology for HCV RNA quantification is an FDA-approved nucleic acid amplification assay. The Lower Limit of Quantitation (LLOQ) is 15 IU/mL. The linear range of the assay is 15-100,000,000 IU/mL. The Limit of Detection (LoD) is 12.0 IU/mL for EDTA plasma. The reference range is Not Detected. IU log10 See Note log 10 IU/mL 10/27/2024 11:03 AM EDT [facility] Comment:HCV RNA not detected . Plasma 10/25/2024 8:18 PM EDT 10/25/2024 10:27 PM EDT us Leandra Og MD LAB BLOOD ORDERABLES F inal Result [facility] [address] [place] [address], [facility] * Urinalysis w/Rfl to Microscopic (10/25/2024 8:18 PM EDT) Color, UA Yellow Yellow,Straw 10/25/2024 10:38 PM EDT [facility] Clarity, UA Clear Clear 10/25/2024 10:38 PM EDT [facility] Specific Crescent, UA 1.010 1.005 - 1.035 10/25/2024 10:38 PM EDT [facility] pH, UA 6.0 5.0 - 8.0 10/25/2024 10:38 PM EDT [facility] Protein, UA Negative Negative mg/dL 10/25/2024 10:38 PM EDT [facility] Glucose, UA Negative Negative mg/dL 10/25/2024 10:38 PM EDT [facility] Ketones, UA Negative Negative mg/dL 10/25/2024 10:38 PM EDT [facility] Bilirubin, UA Negative Negative 10/25/2024 10:38 PM EDT [facility] Blood, UA Negative Negative 10/25/2024 10:38 PM EDT [facility] Nitrite, UA Negative Negative 10/25/2024 10:38 PM EDT [facility] Urobilinogen, UA <2.0 0.2 - 1.9 mg/dL 10/25/2024 10:38 PM EDT [facility] Leukocyte Esterase, UA Negative Negative 10/25/2024 10:38 PM EDT [facility] Urine 10/25/2024 8:18 PM EDT 10/25/2024 10:35 PM EDT Narrative [facility] - 10/25/2024 10:38 PM EDT Microscopic testing is not performed when the dipstick is negative for blood, leukocyte, protein and nitrite. us Leandra Og MD URINE ORDERABLES Final Result [facility] [address] [place] [address], [facility] * Toxoplasma gondii antibody, IgG (10/25/2024 8:18 PM EDT) Toxoplasma Gondii IgG <3.0 0.0 - 7.1 IU/mL 10/27/2024 7:55 AM EDT [facility] Comment: Negative <7.2 Equivocal 7.2 - 8.7 Positive >8.7 Serum 10/25/2024 8:18 PM EDT 10/27/2024 8:06 AM EDT Narrative [facility] - 10/27/2024 8:06 AM EDT PERFORMED AT: [facility] [id number] DIRECTOR HUMAN SERVICES: Bassam Khalil, PhD PHONE: [phone] Leandra Og MD LAB BLOOD ORDERABLES F inal Result [facility] [address] [place] [address]. [address] * Antibody Screen (10/25/2024 7:46 PM EDT) Antibody Screen Negative 10/25/2024 10:41 PM EDT [facility] Blood 10/25/2024 7:46 PM EDT 10/25/2024 9:54 PM EDT Narrative [facility] - 10/25/2024 10:44 PM EDT Testing performed by [facility] Transfusion Service Ben Blake MD BLOOD BANK TEST ORDERABLES Fi nal Result Performing Organization Address [facility] Co de Phone Number [facility] [address] [place] [address]. [address] * ABO/Rh (10/25/2024 7:46 PM EDT) ABO Grouping O 10/25/2024 10:23 PM EDT [facility] Rh Type Positive 10/25/2024 10:23 PM EDT [facility] Blood 10/25/2024 7:46 PM EDT 10/25/2024 9:54 PM EDT Ben Blake MD BLOOD BANK TEST ORDERABLES Fi nal Result Performing Organization Address City/[facility]/ZIP Co de Phone Number [facility] [address] [place] [address] * (ABNORMAL) TEG-Standard Global Hemostasis (Rapid TEG with Heparin Effect, Contains a Baseline TEG) (10/25/2024 7:46 PM EDT) Citrated Kaolin Reaction Time (TEGHEPARINASE) 8.4 4.6 - 9.1 minutes 10/25/2024 10:49 PM EDT [facility] Citrated Rapid Teg Maximum Amplitude (TEGHEPARINASE) <40.0(L) 52.0 - 70.0 mm 10/25/2024 10:49 PM EDT [facility] Citrated Functional Fibrinogen Maximum Amplitude (TEGHEPARINASE) 6.7(L) 15.0 - 32.0 mm 10/25/2024 10:49 PM EDT [facility] Citrated Kaolin W/Heparinase Reaction Time (TEGHEPARINASE) 8.1 4.3 - 8.3 minutes 10/25/2024 10:49 PM EDT [facility] Citrated Kaolin K-Time (TEGHEPARINASE) 2.5(A) 0.8 - 2.1 minutes 10/25/2024 10:49 PM EDT [facility] Citrated Kaolin Angle (TEGHEPARINASE) 65.7(A) 63.0 - 78.0 degrees 10/25/2024 10:49 PM EDT [facility] Citrated Kaolin Maximum Amplitude (TEGHEPARINASE) <40.0(L) 52.0 - 69.0 mm 10/25/2024 10:49 PM EDT [facility] Citrated Functional Fibrinogen- Fibrinogen Level (TEGHEPARINASE) 159.5(L) 278.0 - 581.0 mg/dL 10/25/2024 10:49 PM EDT [facility] Whole Blood (Citrate) 10/25/2024 7:46 PM EDT 10/25/2024 10:15 PM EDT us Ben Blake MD LAB BLOOD ORDERABLES Final Re sult [facility] [address] [place] [address], [facility] documented in this encounter Visit Diagnoses Diagnosis Acute kidney injury superimposed on CKD ([facility])- Primary Prophylactic antibiotic Encounter for long-term (current) [...] in sodium chloride 0.9% 100 mL IVPB ([id number]) 1 g, Intravenous, at 200 mL/hr, Every 6 hours scheduled (4 times per day), First dose on Sun10/26/24 at 0630, For 2 days, Dosage may need to be adjusted for renal dysfunction. Full dose is 1g IV q6h Use [id number] Adapter - Mix Thoroughly Before Administration New [...] Once underlying shock sufficiently improved, defined as [id number] r requirement ? 0.2 mcg/kg/min (norepinephrine equivalent) [...] 6:48 PM EDT 1 mg HYDROmorphone (DILAUDID) [employer] 6 mg/30 mL syringe *Standard Conc* Intravenous, Continuous, Starting on Sun10/27/24 at 1730, HIGH ALERT MEDICATION New Syringe/Cartridge 10/28/2024 3:59 AM EDT New Syringe/Cartridge 10/27/2024 7:09 PM EDT HYDROmorphone (DILAUDID) [employer] 6 mg/30 mL syringe *Standard Conc* Intravenous, [...] in sodium chloride 0.9 % 100 mL [id number] IVPB 50 mg, Intravenous, at 100 mL/hr, Every 24 hours, First dose on Sun10/27/24 at 1400, PROTECT FROM LIGHT FLUSH LINE w/NSS PRIOR TO ADMINISTRATION Use [id number] Adapter - Mix Thoroughly Before Administration Rate/Dose [...] paralyzed: Do not titrate - follow policy [id number]. Start infusion if unable to maintain goal [...] documented as of this encounter Care Teams Technical Services Analyst Relationship Specialty Start Date End Date Enedina Mcguire NP [address] [place] [address] PCP - General Internal Medicine 10/05/24 Alicia Pantoja, RN Txp Post Coordinator Transplant Hepatology 10/28/24 documented as of this encounter
--- OUTSIDE RECORDS SUMMARY | 2024-10-25 22:30 | XMS_ITS | Encounter Summary ---
Author Organization [facility] Address [address] [place] [address] Care Team Providers Care [facility] Former Name Role Phone Enedina Mcguire NP Primary Care Provider [phone] Source Comments This information has been disclosed [...] release of HIV test results or diagnoses. [id number] Reason for Visit * Auth/Cert (Routine) Specialty Diagnoses / Procedures Referred By Shane hernadez Referred To Contact Surgical Intensive Care Diagnoses Liver transplant recipient (CMS-HCC) cirrhosis and CKD Procedures LIVER-KIDNEY TRANSPLANT [facility] SICU [address] [place] [address] Phone: tel: Referral ID Status Reason Start Date Expiration Date Visits Re quested Visits Authorized [id number] 1 1 Encounter Details Date Type Department Care Team (Late st Contact Info) Description 10/25/2024 10:30 PM EDT - 10/26/2024 6:12 AM EDT Surgery [facility] PERIOP [address] [place] [address] Semaj Mcnair III, MD [address] [email or web address] [address] [place] [address] LIVER TRANSPLANT Surgery Details Date/Time [...] the past 12 months has th e [employer], gas, oil, or water [email or web address] threatened to shut off services in your [...] Plata MD - 11/02/2024 2:04 PM EDT [facility] Liver Transplant Surgical Service Inpatient Discharge Summary Patient: Blair Gilbert : 1985 CSN: [id number] Date of Admission: 10/25/2024 Date of Discharge: [...] Case IDs Date Procedure Surgeon Location Status [id number] 10/25/24 LIVER TRANSPLANT Semaj Mcnair III, MD [place] Comp [id number] 10/27/24 Donor Kidney Transplant , Back Bench [...] EXAM: US ABDOMEN LIMITED EXAM: US DUPLEX [id number]-XLYEFO-KVUBJYI COMPLETE INDICATION: Post-op liver transplant COMPARISON: None [...] to poor acoustic windows. [place] right kidney measures 11.6 cm in length. [...] 30 tablet Refills: 0 naloxone 4 mg/actuation [place] Commonly known as: NARCAN Apply 1 spray [...] Your Medications These medications were sent to [facility] NAA Baum - [address] [facility] [address] Deya Roque [address] mycophenolate 250 mg capsule tacrolimus 1 MG capsule These medications were sent to [facility] [address] [place] [address] Hours: Sunday - Sunday: 8:00AM - 6:00PM [...] Case IDs Date Procedure Surgeon Location Status [id number] 10/25/24 LIVER TRANSPLANT Semaj Mcnair III, MD [place] Comp [id number] 10/27/24 Donor Kidney Transplant , Back Bench [...] discharge. NEURO/PAIN - Patient placed on Dilaudid SOCIAL MEDIA DESIGNER once extubated, then transitioned to multi-modal pain [...] Ureteral stentis scheduled for removal on 11/25 [facility] - PT/OT evaluated patient and recommended Home PT/OT, outpatient PT/OT only available. ENDO - A1C is 5.0. Pt was not on diabetic regimen prior to arrival. Patient developed steroid-induced hyperglycemia 2/2 steroid regimen. Discharged home on the following regimen: HDSSI. Patient met w/ senior health educator prior to discharge. HEME - Post-operatively, [...] Patient and family received post-transplant education from learning and development coordinator as well as medication teaching from [...] Department Center 11/04/2024 8:40 AM LTRA SURGERY, [facility] LTRA HOX HOX 11/04/2024 10:10 AM LTRA HEPATORENAL HOX LTRA HOX HOX 11/25/2024 9:00 AM NAA Merida [facility] URO MAB MAB 12/02/2024 2:00 PM Bossman Huffman MD [facility] MARIANGEL MAB MAB 02/25/2025 10:50 AM Bruno Gonzalez MD KTSP HOX HOX Kenyetta Hartman, MS-4 [facility] SHAY PLATA MD 11/02/2024 12:50 PM [...] kept under 2 gm/day. Please discuss withyour plant operations coordinator if you have any question about appropriate dose to take. Other Instructions: Call post-liver transplant clinic with questions [phone] or call [facility] at [phone] and ask for the liver learning and development coordinator zone manager if you experience any of the [...] Department Center 11/04/2024 8:40 AM LTRA SURGERY, [facility] LTRA HOX HOX 11/04/2024 10:10 AM LTRA HEPATORENAL HOX LTRA HOX HOX 11/25/2024 9:00 AM NAA Merida [facility] URO MAB MAB 12/02/2024 2:00 PM Bossman Huffman MD [facility] MARIANGEL MAB MAB 02/25/2025 10:50 [...] EDT 11/02/2024 blood sugar diagnostic (GLUCOSE BLOOD) [facility] Use to test blood sugar up [...] capsule 5 10/27/2024 naloxone (NARCAN) 4 mg/actuation [place] Apply 1 spray in one nostril if [...] tacrolimus and mycophenolate which were dispensed through [facility] per insurance requirements. Patient's confirms those [...] Expected caregiver involvement?: is primary med manager interventional Need for additional education in clinic?: routine reinforcement only Future medications to be obtained from, if known (select one): Tac/MMF to be filled from [facility] Financial concerns (if any): no [...] Disp-30 tablet, R-0 naloxone (NARCAN) 4 mg/actuation [place] Apply 1 spray in one nostril if [...] Comments: Reason for Stopping: Eduardo Gamino, Pharm.D., [facility] Transplant Clinical Specialist Contact via Epic Secure Chat * Froylan Hendrickson MD - 11/01/2024 8:04 AM EDT Liver Transplant Surgery Progress Note Name: Blair Gilbert CSN: [id number] Date: 11/01/2024 8:06 AM OR Date: 10/25/2024 [...] at 10/31/2024 4:38 PM EDT US Duplex Kmd-Pbb-Wscbrxa Comp Result Date: 10/31/2024 IMPRESSION: RIGHT UPPER [...] 10/25/2024 - 10/27/2024. Plan: Liver transplant recipient ([facility]) [Z94.4] Neuro: - Multimodal pain [...] 3:24 PM EDT TXP - Follow Up [facility] Medical Nutrition Therapy Transplant Brief [...] [facility] only) Pertinent [...] Based on DBW of 93.1 kg Kcals/day: 8327-6215 (25-30 kcals/kg) Protein g/day: 140-190 (1.5-2.0 g/kg) [...] Dietitian - Solid Organ Transplant Contact via [employer] Chat * Keon Dobson - 10/31/2024 2:35 PM EDT [facility] Spiritual Care Volunteer Visit PATIENT NAME: Blair Gilbert ROOM:8025/80 Episcopal Affiliation:Hindu Blair Gilbert was visited by a volunteer today. No needs requiring a visit from a staff field hockey coach were expressed at that time. Care Provided: Communion, Prayer/ blessing Please page our service at [phone] as needs arise for patient and/or family. Fr Dean Dobson Hindu field hockey coach Spiritual Care Dept * Brittany Horne PT [...] transplant recipient (CMS-HCC) [Z94.4] Date: 10/31/2024 Room: [facility] Reviewed Pertinent hospital course: Yes Hospital [...] issued by OT: Long-handled sponge, Sock aid, Head Loft Worker, Other (comment) Equipment issued by OT comment: leg photographer assistant Assessment Assessment: Decreased ADL status, Decreased [...] IADL task (Goal met and continued 10/31) Grey Roll Worker Goal : Pt will complete bathing assessment and transfer dean of admissions goal to be met in: 2 weeks [...] Problem List Diagnosis Decompensated cirrhosis ([facility]) Acute kidney injury superimposed on CKD ([facility]) Alcohol use disorder Metabolic encephalopathy Hypertension Other hyperlipidemia Thrombocytopenia ([facility]) Renal mass, left Abdominal pain Hypokalemia CKD (chronic kidney disease) stage 4, GFR 15-29 ml/min ([facility]) Metabolic acidosis with normal anion gap and bicarbonate losses GERD (gastroesophageal reflux disease) Hypothyroidism Itching Anemia BRBPR (bright red blood per rectum) SBP (spontaneous bacterial peritonitis) ([facility]) C Diff Diarrhea [...] 0659 10/31/24 0700 - 11/01/24 0659 Shift 4632-4625 4624-0112 1014-2760 24 Hour Total 5562-6001 8796-2287 8587-7072 24 Hour Total INTAKE P.O. 240 240 P.O. 240 240 Shift Total(mL/kg) 240(1.9) 240(1.9) OUTPUT Urine(mL/kg/hr) 1850(1.8) 600(0.6) 600(0.6) 3050(1) 350 350 Urine 800 318 810 7430 350 350 Urine Occurrence 2 x 2 [...] with further concerns Lavell Kramer MD 10/31/[phone] * Priti Geiger CNP - 10/31/2024 10:06 AM EDT Liver Transplant Surgery Progress Note Name: Blair Gilbert CSN: [id number] Date: 10/31/2024 10:06 AM OR Date: 10/25/2024 [...] 10/28/24 1109 LACTATE 0.3* Imaging US Duplex Fos-Gqm-Eyvcuhp Comp Result Date: 10/28/2024 IMPRESSION: ABDOMINAL ULTRASOUND [...] 10/25/2024 - 10/27/2024. Plan: Liver transplant recipient ([facility]) [Z94.4] Neuro: - Multimodal pain [...] Transplant Nephrology Progress Note Patient: Blair Gilbert [id number] Date of Admit: 10/25/2024. LOS: 6 [...] CKD IIIb/IV: - Presumed s/t HRS - Hyster Machine Operator: Yovanny Curran at [facility] Allograft Function: S/p SLK 10/25- (kidney [...] 10/27/2024 PCO2 35 10/27/2024 PO2ART 92 10/27/2024 NEU0YAR 21 (L) 10/27/2024 BEART -4.6 (L) 10/27/2024 JOM1FSX 95.4 10/27/2024 K1VKBPYK 98 10/27/2024 Hemodynamics / Cardiovascular Status: Goal [...] % Iron Saturation: SEE COMMENT on 10/25/2024 JznnnlxK98: No results found for requested labs within [...] preliminary until attending attestation. Lauren Santos, SAMSON, HOSPICE RN, DIE TRIMMER- Transplant Nephrology [phone] Preferred contact: secure chat The HPI, ROS, [...] 0659 10/30/24 07 - 10/31/24 0659 Shift 6971-6919 7186-9631 3894-9340 24 Hour Total 8213-7176 9330-8274 0049-5047 24 Hour Total INTAKE P.O. 240 240 480 P.O. 240 240 480 IV Piggyback 87.2 87.2 Volume (mL) (micafungin (MYCAMINE) 50 mg in sodium chloride 0.9 % 100 mL Fxxt8Uio IVPB) 87.2 87.2 Shift Total(mL/kg) 240(2) 327.2(2.7) 567.2(4.4) OUTPUT Urine(mL/kg/hr) 600(0.6) 1175(1.2) 450(0.4) 2225(0.7) 550 550 Output (mL) (IUC (Berkowitz) Triple-lumen (3-Way) 18 Fr.) 600 5021 286 7765 550 550 Drains 175 245 100 520 [...] month of prophylaxis Lavell Kramer MD 10/30/[phone] * Priti Geiger CNP - 10/30/2024 10:36 AM EDT Liver Transplant Surgery Progress Note Name: Blair Gilbert CSN: [id number] Date: 10/30/2024 10:37 AM OR Date: 10/25/2024 [...] 1109 LACTATE 0.5 0.3* Imaging US Duplex Vcq-Pis-Ijbhjzh Comp Result Date: 10/28/2024 IMPRESSION: ABDOMINAL ULTRASOUND [...] 10/25/2024 - 10/27/2024. Plan: Liver transplant recipient ([facility]) [Z94.4] Neuro: - Multimodal pain [...] Transplant Nephrology Progress Note Patient: Blair Gilbert [id number] Date of Admit: 10/25/2024. 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 Lauren Santos, DNP, HOSPICE RN, DIE TRIMMER- Transplant Nephrology [phone] Preferred contact: secure chat The HPI, ROS, [...] EDT Pt seen, examined, and discussed with R AND D LAB TECHNICIAN on 10/30/2024. reviewed the chart including the labs and imaging studies. My additional comments below. 39 y.o. 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 S/p SLK 10/25-10/26 Good uop Mild MA, will monitor for now for needs of po bicarb Aaron Gonzalez MD, MEd, FASN * Ben Weiss, RD - 10/29/2024 3:36 PM EDT TXP - Follow Up [facility] Medical Nutrition Therapy Follow-Up Diet [...] I/O: +23.3L net volume. 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 Admit Weight: 270 lb (122.5 [...] Based on DBW of 93.1 kg Kcals/day: 6672-6726 (25-30 kcals/kg) Protein g/day: 140-190 (1.5-2.0 g/kg) [...] Dietitian - Solid Organ Transplant Contact via [employer] Chat * Anita Crystal, PT - 10/29/2024 2:04 PM EDT Physical Therapy Initial Assessment Name: Blair Gilbert : 1985 Attending Physician: Semaj Mcnair III, MD Admission Diagnosis: Liver transplant recipient (CMS-HCC) [Z94.4] Date: 10/29/2024 Room: [place] [address] [address] Reviewed Pertinent hospital course: Yes Hospital Course [...] with functional mobility at: 10 or less Grey Roll Worker Goal : Pt will ambulate 250' mod [...] kidney injury superimposed on CKD ([facility]) Alcohol use disorder Metabolic encephalopathy Hypertension Other hyperlipidemia Thrombocytopenia ([facility]) Renal mass, left Abdominal pain Hypokalemia CKD (chronic kidney disease) stage 4, GFR 15-29 ml/min ([facility]) Metabolic acidosis with normal anion gap and bicarbonate losses GERD (gastroesophageal reflux disease) Hypothyroidism Itching Anemia BRBPR (bright red blood per rectum) SBP (spontaneous bacterial peritonitis) ([facility]) C Diff Diarrhea C. difficile diarrhea Neck pain with history of cervical spinal surgery * Shanel Pabon, OT - 10/29/2024 1:23 PM EDT Occupational Therapy Initial Assessment Name: Blair Gilbert : 1985 Attending Physician: Semaj Mcnair III, MD Admission Diagnosis: Liver transplant recipient ([facility]) [Z94.4] Date: 10/29/2024 Room: [place] [address] [address] Reviewed Pertinent hospital course: Yes Hospital Course [...] Intervention(s): Ambulation/increased activity;Repositioned Therapist reported pain to: custodial manager Oxygen Supplemental Oxygen Supplemental Oxygen: None (Room [...] abilities to complete ADL's safely Communication: Verbalization Barht Agitation Sedation Scale: Alert and calm Vision [...] distance ambulation in prep for IADL task Jail Goal : Pt will complete bathing assessment and transfer USP goal to be met in: 2 weeks [...] liver (CMS-HCC) Esophageal varices (CMS-HCC) Hepatorenal syndrome ([facility]) Hypertension Other hyperlipidemia 07/26/2024 Renal cell carcinoma ([facility]) Thrombocytopenia ([facility]) Thyroid disease Past Surgical History Past [...] packing; Surgeon: Semaj Mcnair III, MD; Location: [facility]; Service: Transplant; Laterality: N/A; [1] Patient Active Problem List Diagnosis Decompensated cirrhosis ([facility]) Acute kidney injury superimposed on CKD ([facility]) Alcohol use disorder Metabolic encephalopathy Hypertension Other hyperlipidemia Thrombocytopenia ([facility]) Renal mass, left Abdominal pain Hypokalemia CKD (chronic kidney disease) stage 4, GFR 15-29 ml/min ([facility]) Metabolic acidosis with normal anion gap and bicarbonate losses GERD (gastroesophageal reflux disease) Hypothyroidism Itching Anemia BRBPR (bright red blood per rectum) SBP (spontaneous bacterial peritonitis) ([facility]) C Diff Diarrhea C. difficile diarrhea Neck pain with history of cervical spinal surgery * Caron Santos CNP - 10/29/2024 10:30 AM EDT Images from the original note were not included. Transplant Nephrology Progress Note Patient: Blair Gilbert [id number] SICU-28/USIC-28 Date of Admit: 10/25/2024. 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 Lauren Santos, DNP, HOSPICE RN, DIE TRIMMER- Transplant Nephrology [phone] Preferred contact: secure chat The HPI, ROS, [...] Surgery Progress Note Name: Blair Gilbert CSN: [id number] Date: 10/29/2024 10:08 AM OR Date: 10/25/2024 [...] LACTATE 0.4* 0.5 0.3* Imaging US Duplex Foa-Gbi-Wwdrloo Comp Result Date: 10/28/2024 IMPRESSION: ABDOMINAL ULTRASOUND [...] at 10/27/2024 10:38 AM EDT US Duplex Zdo-Yyp-Mmsyptp Comp Result Date: 10/27/2024 IMPRESSION: RIGHT UPPER [...] 10/25/2024 - 10/27/2024. Plan: Liver transplant recipient ([facility]) [Z94.4] Neuro: - Multimodal pain [...] Date 10/28/24699 - 10/29/2465810/29/24699 - 10/30/24658 Shift 4068-9228 5604-0287 7180-8736 24 Hour Total 7508-3354 7552-3428 5173-2104 24 Hour Total INTAKE P.O. 240 0 [...] IV infusion) 253.9 374.7 775.6 1404.2 Blood 6101 981 7268 Albumin 750 750 Volume (Transfuse RBC Transfusion Rate: Per dept routine) 310 310 Volume (Transfuse RBC Transfusion Rate: Per dept routine) 271 271 IV Piggyback 918.4 691 82 8580.4 Volume (mL) (micafungin (MYCAMINE) 50 mg in sodium chloride 0.9 % 100 mL Egla7Gkg IVPB) 99.9 99.9 Volume (mL) (albumin human [...] month of prophylaxis Lavell Kramer MD 10/29/[phone] * John Moreno MD - 10/29/2024 6:47 AM EDT SURGICAL ICU PROGRESS NOTE 10/29/2024 6:47 AM Name: Blair Gilbert CSN: [id number] HPI: Blair Gilbert is a 39 y.o. [...] ESOPHAGOGASTRODUODENOSCOPY N/A 10/10/2024 Procedure: EGD; Surgeon: Lino oSto MD; Location: ENDOSCOPY; Service: Gastroenterology; Laterality: N/A; [...] to 4 times a day. DEXCOM G7 TREAD CUTTER Misc Use reader as directed. DEXCOM G7 [...] times a day. naloxone (NARCAN) 4 mg/actuation [place] Apply 1 spray in one nostril if [...] 37 37 35 PO2ART 245* 182* 92 ENT5SVY 22 21* 21* BEART -4.2* -4.8* -4.6* [...] at baseline or with provocation, shows no bmtyt-xm-nmch atrial level shunt. - Pulmonary arteries: Systolic [...] Home pantoprazole 40mg daily, continue Last BM: BUILDING ASSOCIATE - suppository today Bowel regimen: Miralax [...] results for input(s): TEGANGLE , TEGKTIME , BOMRIQRG41 , TEGMAXAMPL , TEGRTIME , CBMZ in [...] in sodium chloride 0.9 % 100 mL Zabn9Yxn IVPB 50 mg Every 24 hours 10/27/2024 -- Admin Instructions: PROTECT FROM LIGHT FLUSH LINE w/NSS PRIOR TO ADMINISTRATION Use Chow5Ovi Adapter - Mix Thoroughly Before Administration Route: [...] instability DC today Arterial Line? R radial [place]- DC today Urinary Catheter? Berkowitz - Reason: [...] BID Continuous Infusions: HYDROmorphone 6 mg/30 mL SOCIAL MEDIA DESIGNER norepinephrine 4 mcg/min (10/27/24 2318) sodium chloride [...] 0659 10/28/24 07 - 10/29/24 0659 Shift 4233-5274 4375-6012 0524-2132 24 Hour Total 3821-5423 5722-2785 0766-1174 24 Hour Total INTAKE P.O. 0 120 [...] in sodium chloride 0.9 % 100 mL Gewk1Fbx IVPB) 100 100 Volume (mL) (albumin human 5%) 126 126 Volume (mL) (potassium chloride (KCl)/Sterile water 50 mL 20 mEq/50 mL IVPB 20 mEq) 100 100 Volume (mL) (AMPicillin 1 g in sodium chloride 0.9% 100 mL IVPB (Utua7Wvu)) 100.1 57 42.9 200 Volume (mL) (mycophenolate (CELLCEPT) 500 mg in dextrose 5% in water (D5W) 50 mL IVPB) 50 5.3 55.3 Shift Total(mL/kg) 2079.3(17) 1161(9.5) 787.3(6.4) 4027.6(32.9) OUTPUT Urine(mL/kg/hr) 2195(2.2) 1000(1) 900(0.9) 4095(1.4) 490 490 Urine 360 360 Output (mL) (IUC (Berkowitz) Triple-lumen (3-Way) 18 Fr.) 1835 4174 472 8121 490 490 Emesis/NG output 50 50 Drainage [...] month of prophylaxis Lavell Kramer MD 10/28/[phone] * Caron Santos CNP - 10/28/2024 9:00 AM EDT Images from the original note were not included. Transplant Nephrology Progress Note Patient: Blair Gilbert [id number] SICU-28/USIC-28 Date of Admit: 10/25/2024. 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 Lauren Santos, SAMSON, HOSPICE RN, DIE TRIMMER- Transplant Nephrology [phone] Preferred contact: secure chat The HPI, ROS, [...] EDT Pt seen, examined, and discussed with R AND D LAB TECHNICIAN on 10/28/2024. reviewed the chart including the labs and imaging studies. My additional comments below. 39 y.o. 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 S/p SLK 10/25-10/26 Has great UOP 4.2L Aaron Gonzalez MD, MEd, FASN * Shay Plata MD - 10/28/2024 7:41 AM EDT Liver Transplant Surgery Progress Note Name: Blair Gilbert CSN: [id number] Date: 10/28/2024 11:05 AM OR Date: 10/25/2024 - 10/27/2024 Subjective: 1 Day Post-Op Received one unit pRBCs overnight On low dose levo this morning Increasing tachycardia Reports worsening pain, on SOCIAL MEDIA DESIGNER Tolerated sips of clears No nausea/vomiting, no [...] Oral BID Continuous: HYDROmorphone 6 mg/30 mL SOCIAL MEDIA DESIGNER norepinephrine Stopped (10/28/24 0637) sodium chloride 0.9 [...] at 10/27/2024 10:38 AM EDT US Duplex Old-Ror-Ughnsqm Comp Result Date: 10/27/2024 IMPRESSION: RIGHT UPPER [...] 10/25/2024 - 10/27/2024. Plan: Liver transplant recipient ([facility]) [Z94.4] Neuro: - Multimodal pain control: dilaudid SOCIAL MEDIA DESIGNER, tylenol, robaxin. PRN dilaudid for breakthrough CV: [...] SCDs DISPO: SICU SHAY PLATA MD, MS4 [facility] Surgery 11:05 AM 10/28/2024 Cosigned by [...] 10/28/2024 6:17 AM Name: Blair Gilbert CSN: [id number] HPI: Blair Gilbert is a 39 y.o. [...] to 4 times a day. DEXCOM G7 TREAD CUTTER Misc Use reader as directed. DEXCOM G7 [...] times a day. naloxone (NARCAN) 4 mg/actuation [place] Apply 1 spray in one nostril if [...] Oral BID Continuous: HYDROmorphone 6 mg/30 mL SOCIAL MEDIA DESIGNER insulin regular in 0.9 % sodium chloride [...] 37 37 35 PO2ART 245* 182* 92 YEB0RFJ 22 21* 21* BEART -4.2* -4.8* -4.6* [...] at baseline or with provocation, shows no gjbeo-kq-eejc atrial level shunt. - Pulmonary arteries: Systolic [...] while intubated,convert to PO today Last BM: BUILDING ASSOCIATE Bowel regimen: Miralax today, hold senna [...] ml IV Fluids: HYDROmorphone 6 mg/30 mL SOCIAL MEDIA DESIGNER insulin regular in 0.9 % sodium chloride, [...] results for input(s): TEGANGLE , TEGKTIME , DDXJBTMB80 , TEGMAXAMPL , TEGRTIME , CBMZ in [...] in sodium chloride 0.9% 100 mL IVPB (Jylq6Ohf) (Completed) 1 g Every 6 hours scheduled 10/26/2024 10/28/2024 Admin Instructions: Dosage may need to be adjusted for renal dysfunction. Full dose is 1g IV q6h Use Lqkc2Ofg Adapter - Mix Thoroughly Before Administration Notes to Pharmacy: On order checker packer processer estimated creatinine clearance is 35.9 mL/min (A) [...] in sodium chloride 0.9 % 100 mL Laog6Met IVPB 50 mg Every 24 hours 10/27/2024 -- Admin Instructions: PROTECT FROM LIGHT FLUSH LINE w/NSS PRIOR TO ADMINISTRATION Use Jddc2Ybh Adapter - Mix Thoroughly Before Administration Route: [...] R IJ Mac Arterial Line? R radial [place] Urinary Catheter? Berkowitz - Reason: Adequate I/O [...] the patient as needed. Hillary Fernandes PharmD, [facility] Solid Organ Transplant Clinical Specialist Contact via [employer] Secure Chat Preferred O. [phone] * Chinedu Almeida RRT - 10/27/2024 1:10 [...] Yes MD Order No SBT No Yes [place] Coma Scale > 8 Yes Lab Results Component Value Date PHART 7.36 10/27/2024 PCO2 37 10/27/2024 PO2ART 245 (H) 10/27/2024 SUJ0HLZ 22 10/27/2024 BEART -4.2 (L) 10/27/2024 [id number] 96.5 10/27/2024 [id number] 100 10/27/2024 Based on this SBT assessment [...] Surgery Progress Note Name: Blair Gilbert CSN: [id number] Date: 10/27/2024 11:40 AM OR Date: 10/25/2024 - 10/27/2024 Subjective: * Day of Surgery * Remains intubated in SICU Sedated but appropriately nods to questions No acute distress Objective: BP 100/48 Pulse 89 Temp 99 ??F (37.2 ??C) ([place]) Resp 9 Ht 6' 4 (1.93 m) [...] at 10/27/2024 10:38 AM EDT US Duplex Lcz-Uxr-Euldgqd Comp Result Date: 10/27/2024 IMPRESSION: RIGHT UPPER [...] Waveforms within normal limits. Report Verified by: Ablerto Rodriguez MD at 10/27/2024 10:38 AM EDT [...] 10/27/2024. Problem List[1] Plan: Liver transplant recipient ([facility]-HCC) [Z94.4] Neuro: - Propofol/fentanyl CV: [...] injury superimposed on CKD ([facility]-HCC) Alcohol use disorder Metabolic encephalopathy Hypertension Other hyperlipidemia Thrombocytopenia ([facility]) Renal mass, left Abdominal pain Hypokalemia CKD (chronic kidney disease) stage 4, GFR 15-29 ml/min (CMS-HCC) Metabolic acidosis with normal anion gap and bicarbonate losses GERD (gastroesophageal reflux disease) Hypothyroidism Itching Anemia BRBPR (bright red blood per rectum) SBP (spontaneous bacterial peritonitis) ([facility]) C Diff [...] 10/27/2024 7:16 AM Name: Blair Gilbert CSN: [id number] HPI: Blair Gilbert is a 39 y.o. [...] in the morning and at bedtime. lancets [facility] [place] times a day. naloxone (NARCAN) 4 mg/actuation [place] Apply 1 spray in one nostril if [...] 47* 36 37 PO2ART 127* 91 137* XSY4WLB 21* 22 20* BEART -5.4* -3.9* -6.4* [...] at baseline or with provocation, shows no btuer-lq-gojt atrial level shunt. - Pulmonary arteries: Systolic [...] IV pantoprazole while intubated, NPO Last BM: BUILDING ASSOCIATE Bowel regimen: Senna/Miralax when able Nausea: [...] 10/27/2024 0715 Gross per 24 hour Intake 76589.82 ml Output 7060 ml Net 6224.82 ml [...] results for input(s): TEGANGLE , TEGKTIME , GBXVZZUM86 , TEGMAXAMPL , TEGRTIME , CBMZ in [...] in sodium chloride 0.9% 100 mL IVPB (Svdq9Qnn) 1 g Every 6 hours scheduled Admin Instructions: Dosage may need to be adjusted for renal dysfunction. Full dose is 1g IV q6h Use Ezdi8Zxh Adapter - Mix Thoroughly Before Administration Notes to Pharmacy: On order checker packer processer estimated creatinine clearance is 35.9 mL/min (A) (based on SCr of 3.87 mg/dL (H)). Route: Intravenous Linked Group 1: Placed in And Linked Group cefTRIAXone (ROCEPHIN) 2 g in sodium chloride 0.9 % 100 mL Xefm2Whe Continuous - One Step Medications Only 10/27/2024 [...] R IJ Mac Arterial Line? R radial [place] Urinary Catheter? 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 naloxone (NARCAN) 4 mg/actuation [place] Apply 1 spray in one nostril if [...] Low Risk (07/09/2024) Received from [facility] Overall Financial Resource Strain (CARDIA) Difficulty [...] No Physical Activity: Unknown (07/14/2024) Received from [facility] Exercise Vital Sign Days of Exercise per Week: Patient unable to answer Minutes of Exercise per Session: Not on file Stress: Patient Unable To Answer (07/14/2024) Received from [facility] [employer] - Occupational Stress Questionnaire [...] -- 5.4 ALBUMIN 3.2* 3.1* Invalid input(s): [facility] Other labs: Imaging Studies No results [...] [facility] Surgery Liver Transplant Pager: [phone] 8:24 PM 10/25/2024 Cosigned by Semaj [...] Name: Blair Gilbert Date: 1985 Billing #: [id number] Date of Procedure: 10/25/2024 Diagnosis: End Stage Renal Disease Procedure: 1. Donor Kidney Transplant 2. Back Bench Preparation Donor Kidney 3. Baseline Kidney transplant biopsy 4. Insertion of Indwelling Stent 5. Removal of Perihepatic packing Surgeons * Flaquito Ba MD Education Specialist MD Shayan Findings: Low Hockey stick incision [...] donor was ABO O and UNOS ID [id number], Match Run [id number] ([facility]). This donor was a Donor after cardiac [...] was then wanded with the lap detection restaurant assistant. The incision was ex tented 2 [...] and closure. Flaquito Ba MD Transplant Surgeon stove mechanic * Flaquito Ba MD - 10/27/2024 6:15 AM EDT TRANSPLANT KIDNEY with bile duct reconstruction Brief Op Note Blair Gilbert 10/27/2024 Pre-op Diagnosis: Acute kidney injury superimposed on CKD (CMS-HCC) [N17.9, N18.9] Post-op Diagnosis: same Procedure(s): TRANSPLANT KIDNEY Surgeon(s): MD Semaj Washington III, MD Anesthesia: General Endotracheal Staff: Mental Health Case Manager: Chinedu Quinn RN Scrub Person: ST Angela Fellow: Kemar Sahni MD 2nd Mental Health Case Manager: Marty Clark RN 3rd Mental Health Case Manager: Candis Mcdaniel RN FINDINGS Berkowitz 3 day Drains: Intraabdominal (perihepatic) UNOS ID [id number], Match Run [id number] Kid WIT 27 min Kid CIT 33 [...] (Berkowitz) Triple-lumen (3-Way) 18 Fr. (Active) Status [place] Drainage 10/26/241999 Collection Container Standard drainage bag [...] Washington III, MD Anesthesia: General Endotracheal Staff: Mental Health Case Manager: Chinedu Quinn RN Relief Mental Health Case Manager: Michela Amos RN Relief Scrub: Stephani Blake RN Scrub Person: ST Angela Fellow: Kemar Sahni MD 2nd Mental Health Case Manager: Marty Clark RN 3rd Mental Health Case Manager: Candis Mcdaniel RN Estimated Blood Loss: 300 [...] (Berkowitz) Triple-lumen (3-Way) 18 Fr. (Active) Status [place] Drainage 10/26/241999 Collection Container Standard drainage bag [...] day Drains: 2 Intraabdominal (perihepatic) UNOS ID [id number], Match Run [id number] Donor: young DCD NRP Kid WIT 27 min Kid CIT 33 hours Removal of Perihepatic packing- 5 Raytecs 2 laps There were no complications unless listed below. KEMAR SAHNI MD Date: 10/27/2024 Time: 7:35 AM Cosigned by Semaj Mcnair III, MD at 10/30/2024 10:46 AM EDT Associated attestation - Semaj Mcnair III, MD - 10/30/2024 10:46 AM EDT --- Diandra Mcnari III, MD Transplant Surgery (cell) * Semaj Mcnair III, MD - 10/27/2024 12:00 AM EDT [facility] PATIENT NAME: BLAIR GILBERT DATE OF : 1985 CSN: [id number] PHYSICIAN: Semaj Mcnair III, MD ADMIT DATE: 10/25/2024 DICTATED BY: Semaj Mcnair III, MD SURGERY DATE: 10/27/2024 OPERATIVE REPORT SURGEON: Semaj Mcnair III, MD AIRPLANE COVER MAKER SURGEON: Kemar Sahni MD. PREOPERATIVE DIAGNOSIS: [...] were made hemostatic with the argon beam rehab manager. We assessed the flows of the [...] a mucocele formation. We then performed a alij-gm-bnxn choledochocholedochostomy in an end to end fashion [...] small umbilicalhernia that was closed with a equkld-ry-ymftj 0 PDS suture. At this point, we [...] complications. SEMAJ MCNAIR III, MD RCQ/AQ JOB#: [id number] * Semaj Mcnair III, MD - 10/26/2024 7:00 AM EDT Patient Name: Blair Gilbert Date: 1985 Billing #: [id number] Date of Procedure: 10/25/2024 - 10/26/2024 Diagnosis: Chronic Hepatic Failure without coma Procedure: 1. Orthotopic Liver Transplant 2. Back Bench Preparation Donor Liver 3. Temporary portocaval shunt 4. Perihepatic packing for control of hemorrhage 5. Placement of external choledochal stent 6. Temporary abdominal closure Attending surgeons: Semaj Mcnair III, MD Education Specialist Surgeon(s): Sveta Judge MD Findings: Whole organ placed in piggyback fashion with suprahepatic cava of donor to common orifice of all three hepatic veins for IVC anastomosis. Donor main portal vein to recipient main portal vein. Donor common hepatic artery to recipient right hepatic artery. Temporary abdominal with perihepatic packing for control of hemorrhage. Externalization of bile duct with 8 Kittitian pediatric feeding tube. Portal Flow Modulation No [...] This donor was ABO O and UNOSID [id number], Match Run [id number]. This was a 42-year-old donation after circulatory [...] After completion of the outflow anastomosis, a Amharic clamp was placed across the donor suprahepatic [...] do a temporary abdominal closure. An 8 Kittitian pediatric feeding tube was brought through the [...] Sveta Alves III, MD Anesthesia: General Staff: Mental Health Case Manager: Mak Maher RN; Marty Clark RN Scrub Person: ST Angela Resident: Thuy Leon MD combine driver: Jose Daniel Arana RRT Estimated Blood Loss: [...] Number of days: 5 Surgery Information: -UNOS#: [id number] -ABO: O to O -Recipient: SLK candidate [...] 1:19 PM EDTAssociated Order(s): IP CONSULT TO CREAM BUYER [facility] Transplant Discharge Education Note Assessment: [...] Gomez, MSN, RN, NPD- Diabetes Education Office [phone] Schedule: M-F 8:00am-4:30pm * Ben Weiss RD - 10/27/2024 4:06 PM EDTAssociated Order(s): IP CONSULT TO NUTRITION SERVICES; IP CONSULT TO NUTRITION SERVICES TXP - Initial [facility] Medical Nutrition Therapy Reason(s) for [...] I/O: +23.2L net volume. Last BM Date: (BUILDING ASSOCIATE). Admit Weight: 270 lb (122.5 kg) [...] Based on DBW of 93.1 kg Kcals/day: 6021-3493 (25-30 kcals/kg) Protein g/day: 140-190 (1.5-2.0 g/kg) [...] Dietitian - Solid Organ Transplant Contact via [facility] Chat * Lavell Kramer MD - 10/27/2024 11:09 AM EDTAssociated Order(s): INPATIENT CONSULT TO TRANSPLANT INFECTIOUS DISEASES Infectious Disease Consultation Patient: Blair Gilbert CSN: [id number] Assessment & Plan 39 y.o. M s/p [...] blood cx's if febrile Lavell Kramer MD [phone] Chief Complaint Long Qtc History of Present [...] Low Risk (07/09/2024) Received from [facility] Overall Financial Resource Strain (CARDIA) Difficulty [...] No Physical Activity: Unknown (07/14/2024) Received from [facility] Exercise Vital Sign Days of Exercise per Week: Patient unable to answer Minutes of Exercise per Session: Not on file Stress: Patient Unable To Answer (07/14/2024) Received from [facility] [employer] - Occupational Stress Questionnaire Feeling of Stress : Patient unable to answer Social Connections: Patient Unable To Answer (07/14/2024) Received from [facility] Social Connection and Isolation Panel [NHANES] [...] to 4 times a day. DEXCOM G7 TREAD CUTTER Misc Use reader as directed. DEXCOM G7 [...] times a day. 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 No indications for COMMUNITY OUTREACH COORDINATOR. Good UOP - Noted KT US WNL [...] preliminary until attending attestation. Lauren Santos, SAMSON, HOSPICE RN, DIE TRIMMER- Transplant Nephrology [phone] Preferred contact: secure chat [1] Allergies Allergen [...] Gonzalez MD, MEd, FASN * Marcellus Hebert, STRIP STAMP STRAIGHTENER, TECHNICAL BUSINESS ANALYST - 10/27/2024 10:21 AM EDT HEALTH Care Management/Social Work Assessment Patient Information Patient Name: Blair Gilbert Hospital Day: 2 Inpatient/Observation: Inpatient Admit Date: 10/25/2024 Admission Diagnosis: Liver transplant recipient (CMS-HCC) [Z94.4] Attending provider: Semaj Mcnair III, MD PCP: Enedina Mcguire NP Home Pharmacy: [facility] [address] [place] [address] [facility] [address] [facility] [address] Issues related to obtaining medications: N/A Payor Information Medical Insurance Coverage: Payor: [facility] / Plan: [facility] GLOBAL / Product Type: *No Producttype* [...] History: 12 weeks of CD Treatement at [facility] Do you need Substance Abuse [...] No Status & Connection to [facility] [place] Status & Connection to [place] Services Are you a ?: No Support [...] resides with his spouse at their [facility] in [place]. 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 Patient's LNOK:Spouse, Abdiaziz Gilbert, Patient has no current or past history of suicidal/homicidal ideation. Patient has a history of mental health diagnoses, PTSD and Generalized Anxiety Disorder. Patient is connected with TransplantPsychiatrist and prescribed Prozac. Patient has a history of alcohol use and has completed 12 weeksof CD Treatment at [facility]. Spouse explained that he will complete a 6 month virtual program post transplant but could not recall the name of the program. Patient has no current tobacco use. No previous need or recommendation for home health care services and no previous placements at group home facility and/or inpatient rehab program. Patient [...] as appropriate. NUBIA Escalera, RONALDO Phone Number: [phone] * John Moreno MD - 10/26/2024 3:41 AM EDT SURGICAL ICU CONSULT NOTE 10/26/2024 3:41 AM Name: Blair Gilbert CSN: [id number] HPI: Blair Gilbert is a 39 y.o. [...] at 9:00 PM naloxone (NARCAN) 4 mg/actuation [place] Apply 1 spray in one nostril if [...] % 250 mL infusion 2.5 mcg/min (10/26/24 5243) insulin regular in 0.9 % sodium chloride norepinephrine 18 mcg/min (10/26/24 772) vasopressin 0.04 Units/min (10/26/24 2785) PRN Meds: heparin (porcine) 5,000 unit/mL 10,000 [...] input(s): PHART , PCO2 , PO2ART , PRR2MRC , BEART in the last 72 hours. [...] at baseline or with provocation, shows no pdevn-em-ipxk atrial level shunt. - Pulmonary arteries: Systolic [...] IV pantoprazole while intubated, NPO Last BM: BUILDING ASSOCIATE Bowel regimen: Senna/Miralax when able Nausea: Zofran PRN FLUID/ELECTROLYTES Recent Labs 10/25/24 2217 NA 137 K 2.1* CL 100 CO2 20* BUN 74* CREATININE 3.87* CALCIUM 9.3 PHOS 5.9* GLUCOSE 114* Intake/Output Summary (Last 24 hours) at 10/26/2024 0341 Last data filed at 10/26/2024 0326 Gross per 24 hour Intake 81022 ml Output 675 ml Net 77500 ml IV Fluids: EPINEPHrine (ADRENALIN) 10 mg in sodium chloride 0.9 % 250 mL infusion, Last Rate: 2.5 mcg/min (10/26/24 0339) insulin regular in 0.9 % sodium chloride norepinephrine, Last Rate: 18 mcg/min (10/26/24 827) vasopressin, Last Rate: 0.04 Units/min (10/26/24 2374) A/P: - Goal UOP >0.5 cc/kg/hr - [...] results for input(s): TEGANGLE , TEGKTIME , BHIIXMRZ52 , TEGMAXAMPL , TEGRTIME , CBMZ in [...] in sodium chloride 0.9% 100 mL IVPB (Aiqq2Lmp) 2 g Every 6 hours 10/26/2024 -- Admin Instructions: Use Rnsi8Iee Adapter - Mix Thoroughly Before Administration Notes to Pharmacy: On order checker packer processer estimated creatinine clearance is 35.9 mL/min (A) (based on SCr of 3.87 mg/dL (H)). Route: Intravenous AMPicillin 2 g in sodium chloride 0.9% 100 mL IVPB (Yest6Elg) 2 g Once 10/26/2024 -- Admin Instructions: Use Gkie8Cbw Adapter - Mix Thoroughly Before Administration Notes to Pharmacy: On order checker packer processer estimated creatinine clearance is 35.9 mL/min (A) (based on SCr of 3.87 mg/dL (H)). Route: Intravenous cefTRIAXone (ROCEPHIN) 2 g in sodium chloride 0.9 % 100 mL Yugh2Tqr (Completed) 2 g Once 10/25/2024 10/26/2024 Admin Instructions: Use Ukkf5Pui Adapter - Mix Thoroughly Before Administration Route: [...] R IJ Mac Arterial Line? R radial [place] Urinary Catheter? Berkowitz - Reason: Adequate I/O [...] 47 (H) 10/26/2024 PO2ART 127 (H) 10/26/2024 MHU5HWK 21 (L) 10/26/2024 BEART -5.4 (L) 10/26/2024 EUK7ZPC 94.6 (L) 10/26/2024 [id number] 98 10/26/2024 P:F ratio = 363 CARDIOVASCULAR: [...] Acute Care Surgery, and Surgical Critical Care [facility] Academic Office [phone] For Transfers, call [phone] documented in this encounter Nursing Notes * [...] s/p OLT. Patient arrived to SICU bed S[facility]-28[facility] via hospital bed . Patient arrived intubated. [...] Escalera, RONALDO - 10/31/2024 11:34 AM EDT [facility] Case Management/Social Work Department Progress [...] disease. PCP: Enedina Mcguire NP Home Pharmacy: [facility] [address] [place] [address] [facility] [address] [facility] [address] [facility] [place] - [address] [facility] [address] [facility] [id number] Medical Insurance Coverage: Payor: [employer] [facility] [...] aware that there were no accepting C [facility], [facility], [facility]) and patient would need to outpatient for PT/OT and labs. Discharge Plan Anticipated discharge plan: Home with HHC vs Home with outpatient Anticipated discharge date: 11/01 CM/SW will continue to follow and remain available for discharge planning needs. NUBIA Escalera, TECHNICAL BUSINESS ANALYST Cell [phone] * Plan of Care - Paulette Flannery [...] Citlaly Rohini - 10/29/2024 1:53 PM EDT [facility] Case Management/Social Work Department Progress [...] disease. PCP: Enedina Mcguire NP Home Pharmacy: [facility] [address] [place] [address] [facility] [address] [facility] [address] [facility] [place] - [address] [place] [id number] Medical Insurance Coverage: Payor: [employer] [...] submitted blanket HHC referral to [facility], [facility], [facility], and [facility]. Awaiting responses. SW to followpending [...] available for discharge planning needs. Citlaly Nova, STRIP STAMP STRAIGHTENER, TECHNICAL BUSINESS ANALYST Inpatient Reflexologist/Care Coordination [phone] * Plan of Care - Soco Yap [...] Escalera LSW - 10/28/2024 2:29 PM EDT [facility] Case Management/Social Work Department Progress [...] disease. PCP: Enedina Mcguire NP Home Pharmacy: [facility] [address] [address] [facility] [address] [facility] [address] [facility] [place] [address] [place] [address] Medical Insurance Coverage: Payor: [facility] [facility] CARE / Plan: [employer] / [...] discharge planning needs. NUBIA Escalera, RONALDO Cell [phone] * Plan of Care - Elaine Carrillo [...] at all times. Outcome: Completed Problem: Non-violent, pzs-qjhs-kdvexqafekj restraints Description: Less restrictive alternative interventions will [...] foods as appropriate. Outcome: Progressing Problem: Non-violent, yqr-tleb-rqthsaywlnf restraints Description: Less restrictive alternative interventions will [...] - 10/27/2024 9:00 AM EDT Problem: Non-violent, rah-lwuz-uldujlibkkt restraints Description: Less restrictive alternative interventions will [...] - 10/26/2024 7:41 PM EDT Problem: Non-violent, ede-eryx-odmmasagwvl restraints Description: Less restrictive alternative interventions will [...] restraint flowsheet for further documentation. Problem: Non-violent, ivn-tmen-prgyvzfkijt restraints Description: Less restrictive alternative interventions will [...] 8:01 AM EDT Hospital Encounter [facility] ENDOSCOPY [address] [place] [address] Chris Orosco MD [address] [place] [address] 12/05/2024 8:01 AM EDT - 12/05/2024 8:31 AM EDT Surgery [facility] ENDOSCOPY [address] [place] [address] Chris Orosco MD [address] [place] [id number] EGD Pending Results Name Type Priority Associated Diagnoses Date /Time Fungus culture Microbiology Routine 10/28/19 2:15 AM EDT Scheduled Orders Name Type Priority Associated Diagnoses Orde r Schedule Anaerobic culture Microbiology Routine Acute kidney injury superimposed on CKD ([facility]) Release Upon Ordering for 1 Occurrences starting 10/27/2024 Fungus culture Microbiology Routine Acute kidney injury superimposed on CKD ([facility]) Release Upon Ordering for 1 Occurrences starting 10/27/2024 Routine Culture plus Stain Microbiology Routine Acute kidney injury superimposed on CKD ([facility]) Release Upon Ordering for 1 Occurrences starting 10/27/2024 Surgical Pathology Exam Pathology and Cytology Routine Acute kidney injury superimposed on CKD ([facility]) Release Upon Ordering for 1 Occurrences starting 10/27/2024 Scheduled Procedures Name Priority Associated Diagnoses Date/Ti me EGD Cirrhosis of liver with ascites, unspecified hepatic cirrhosis type ([facility]) 12/05/2024 8:01 AM EDT documented [...] Routine 10/31/2024 11:59 AM EDT US DUPLEX DAM-ZFFIGI-AQXHEWL COMPLETE Routine 10/31/2024 10:19 AM EDT US [...] Routine 10/28/2024 5:31 PM EDT US DUPLEX MRH-CNMMBH-UBQCMQE COMPLETE STAT 10/28/2024 4:23 PM EDT US [...] Routine 10/27/2024 10:00 AM EDT US DUPLEX FMZ-LWGNSR-MIWKKTF COMPLETE STAT 10/27/2024 9:51 AM EDT US [...] EDT Acute kidney injury superimposed on CKD ([facility]) ROUTINE CULTURE PLUS STAIN Routine 10/27/2024 [...] - 100 mg/dL 11/02/2024 5:45 PM EDT [facility] Blood 11/02/2024 5:44 PM EDT 11/02/2024 5:45 PM EDT us Semaj Mcnair III, MD POINT OF CARE TEST ORDERABLES Final Result [facility] [address] [facility] * (ABNORMAL) POC Glucose Monitoring Device (11/02/2024 3:34 PM EDT) POC Glucose Monitoring Device 208(H) 70 - 100 mg/dL 11/02/2024 3:35 PM EDT [facility] Blood 11/02/2024 3:34 PM EDT 11/02/2024 3:35 PM EDT us Semaj Mcnair III, MD POINT OF CARE TEST ORDERABLES Final Result [facility] [address] [facility] * (ABNORMAL) POC Glucose Monitoring Device (11/02/2024 1:18 PM EDT) POC Glucose Monitoring Device 225(H) 70 - 100 mg/dL 11/02/2024 1:19 PM EDT [facility] Blood 11/02/2024 1:18 PM EDT 11/02/2024 1:19 PM EDT us Semaj Mcnair III, MD POINT OF CARE TEST ORDERABLES Final Result Performing Organization Address City/[facility]/ZIP Co de Phone Number [facility] [address] * (ABNORMAL) POC Glucose Monitoring Device (11/02/2024 8:59 AM EDT) POC Glucose Monitoring Device 129(H) 70 - 100 mg/dL 11/02/2024 9:00 AM EDT [facility] Blood 11/02/2024 8:59 AM EDT 11/02/2024 9:00 AM EDT Semaj Mcnair III, MD POINT OF CARE TEST ORDERABLES Final Result Performing Organization Address [facility] Co de Phone Number [facility] [address] * Tacrolimus level (11/02/2024 5:53 AM EDT) Tacrolimus (LC-MS) 7.4 3.0 - 15.0 ng/mL 11/02/2024 2:23 PM EDT [facility] Comment:Performed via liquid chromatography tandem mass spectrometry. Detection limit: 1 ng/mL. Individual target concentrations may vary due to target organ and time after transplant. This test has been developed and its performance characteristics determined by [facility] which is certified under [...] ORDERABLES Denisse l Result Performing Organization Address [facility]/ZIP Co de Phone Number [facility] [facility] [address] * (ABNORMAL) Renal Function Panel w/EGFR (11/02/2024 5:53 AM EDT) Sodium 140 133 - 146 mmol/L 11/02/2024 6:47 AM EDT [facility] Potassium 3.3(L) 3.5 - 5.3 mmol/L 11/02/2024 6:47 AM EDT [facility] Chloride 107 98 - 110 mmol/L 11/02/2024 6:47 AM EDT [facility] CO2 25 21 - 33 mmol/L 11/02/2024 6:47 AM EDT [facility] Anion Gap 8 3 - 16 mmol/L 11/02/2024 6:47 AM EDT [facility] BUN 31(H) 7 - 25 mg/dL 11/02/2024 6:47 AM EDT [facility] Creatinine 1.08 0.60 - 1.30 mg/dL 11/02/2024 6:47 AM EDT [facility] Glucose 150(H) 70 - 100 mg/dL 11/02/2024 6:47 AM EDT [facility] Calcium 7.8(L) 8.6 - 10.3 mg/dL 11/02/2024 6:47 AM EDT [facility] Phosphorus 2.0(L) 2.1 - 4.7 mg/dL 11/02/2024 6:47 AM EDT [facility] Albumin 3.2(L) 3.5 - 5.7 g/dL 11/02/2024 6:47 AM EDT [facility] Osmolality, Calculated 299 278 - 305 mOsm/kg 11/02/2024 6:47 AM EDT [facility] EGFR 88 11/02/2024 6:47 AM EDT [facility] Comment:As of 2021, the [...] EDT 11/02/2024 6:12 AM EDT Beata Horner R AND D LAB TECHNICIAN LAB BLOOD ORDERABLES Denisse l Result Performing Organization Address City/[facility] Co de Phone Number [facility] [address] * (ABNORMAL) Magnesium (11/02/2024 5:53 AM EDT) Magnesium 1.3(L) 1.5 - 2.5 mg/dL 11/02/2024 6:47 AM EDT [facility] Plasma 11/02/2024 5:53 AM EDT 11/02/2024 6:12 AM EDT Beata Bessn [facility] BLOOD ORDERABLES Denisse l Result Performing Organization Address [facility] de Phone Number [facility] [address] * (ABNORMAL) Hepatic Function Panel (11/02/2024 5:53 AM EDT) Total Bilirubin 1.6(H) 0.0 - 1.5 mg/dL 11/02/2024 6:47 AM EDT [facility] Bilirubin, Direct 0.81(H) 0.00 - 0.40 mg/dL 11/02/2024 6:47 AM EDT [facility] AST 30 13 - 39 U/L 11/02/2024 6:47 AM EDT [facility] ALT 66(H) 7 - 52 U/L 11/02/2024 6:47 AM EDT [facility] Alkaline Phosphatase 126(H) 36 - 125 U/L 11/02/2024 6:47 AM EDT [facility] Total Protein 4.6(L) 6.4 - 8.9 g/dL 11/02/2024 6:47 AM EDT [facility] Albumin 3.2(L) 3.5 - 5.7 g/dL 11/02/2024 6:47 AM EDT [facility] Bilirubin, Indirect 0.79 0.00 - 1.10 mg/dL 11/02/2024 6:47 AM EDT [facility] Plasma 11/02/2024 5:53 AM EDT 11/02/2024 6:12 AM EDT us Beata Horner R AND D LAB TECHNICIAN LAB BLOOD ORDERABLES Denisse l Result [facility] [address] [place] [address], [facility] * (ABNORMAL) CBC (11/02/2024 5:53 AM EDT) WBC 5.8 3.8 - 10.8 10E3/uL 11/02/2024 6:21 AM EDT [facility] RBC 3.12(L) 4.20 - 5.80 10E6/uL 11/02/2024 6:21 AM EDT [facility] Hemoglobin 9.2(L) 13.2 - 17.1 g/dL 11/02/2024 6:21 AM EDT [facility] Hematocrit 27.5(L) 38.5 - 50.0 % 11/02/2024 6:21 AM EDT [facility] MCV 87.9 80.0 - 100.0 fL 11/02/2024 6:21 AM EDT [facility] MCH 29.5 27.0 - 33.0 pg 11/02/2024 6:21 AM EDT [facility] MCHC 33.5 32.0 - 36.0 g/dL 11/02/2024 6:21 AM EDT [facility] RDW 17.5(H) 11.0 - 15.0 % 11/02/2024 6:21 AM EDT [facility] Platelets 61(L) 140 - 400 10E3/uL 11/02/2024 6:21 AM EDT [facility] MPV 7.9 7.5 - 11.5 fL 11/02/2024 6:21 AM EDT [facility] Whole Blood 11/02/2024 5:53 AM EDT 11/02/2024 6:12 AM EDT Beata Horner [facility] BLOOD ORDERABLES Denisse l Result [facility] [address] [facility] * (ABNORMAL) POC Glucose Monitoring Device (11/01/2024 9:26 PM EDT) POC Glucose Monitoring Device 199(H) 70 - 100 mg/dL 11/01/2024 9:27 PM EDT [facility] Blood 11/01/2024 9:26 PM EDT 11/01/2024 9:27 PM EDT Semaj Mcnair III, MD POINT OF CARE TEST ORDERABLES Final Result Performing Organization Address City/[facility]/ZIP Co de Phone Number [facility] [address] [facility] * (ABNORMAL) POC Glucose Monitoring Device (11/01/2024 5:04 PM EDT) POC Glucose Monitoring Device 255(H) 70 - 100 mg/dL 11/01/2024 5:05 PM EDT [facility] Blood 11/01/2024 5:04 PM EDT 11/01/2024 5:05 PM EDT Semaj Mcnair III, MD POINT OF CARE TEST ORDERABLES Final Result [facility] [address] [facility] * (ABNORMAL) Renal Function Panel w/EGFR, STAT (11/01/2024 2:17 PM EDT) Sodium 139 133 - 146 mmol/L 11/01/2024 3:10 PM EDT [facility] Potassium 3.3(L) 3.5 - 5.3 mmol/L 11/01/2024 3:10 PM EDT [facility] Chloride 107 98 - 110 mmol/L 11/01/2024 3:10 PM EDT [facility] CO2 24 21 - 33 mmol/L 11/01/2024 3:10 PM EDT [facility] Anion Gap 8 3 - 16 mmol/L 11/01/2024 3:10 PM EDT [facility] BUN 35(H) 7 - 25 mg/dL 11/01/2024 3:10 PM EDT [facility] Creatinine 1.22 0.60 - 1.30 mg/dL 11/01/2024 3:10 PM EDT [facility] Glucose 203(H) 70 - 100 mg/dL 11/01/2024 3:10 PM EDT [facility] Calcium 8.3(L) 8.6 - 10.3 mg/dL 11/01/2024 3:10 PM EDT [facility] Phosphorus 2.2 2.1 - 4.7 mg/dL 11/01/2024 3:10 PM EDT [facility] Albumin 3.4(L) 3.5 - 5.7 g/dL 11/01/2024 3:10 PM EDT [facility] Osmolality, Calculated 302 278 - 305 mOsm/kg 11/01/2024 3:10 PM EDT [facility] EGFR 76 11/01/2024 3:10 PM EDT [facility] Comment:As of 2021, the [...] Marks MD LAB BLOOD ORDERABLES Final Result [facility] [address] [address], [facility] * X-ray Portable Abdomen AP [...] - 100 mg/dL 11/01/2024 12:23 PM EDT [facility] Blood 11/01/2024 12:2 2 PM EDT 11/01/2024 12:23 PM EDT us Semaj Mcnair III, MD POINT OF CARE TEST ORDERABLES Final Result Performing Organization Address [facility] Co de Phone Number [facility] [address] * (ABNORMAL) POC Glucose Monitoring Device (11/01/2024 8:50 AM EDT) POC Glucose Monitoring Device 175(H) 70 - 100 mg/dL 11/01/2024 8:51 AM EDT [facility] Blood 11/01/2024 8:50 AM EDT 11/01/2024 8:51 AM EDT Semaj Mcnair III, MD POINT OF CARE TEST ORDERABLES Final Result Performing Organization Address City/[facility]/ZIP Co de Phone Number [facility] [address] [facility] * Tacrolimus level (11/01/2024 6:01 AM EDT) Tacrolimus (LC-MS) 7.5 3.0 - 15.0 ng/mL 11/01/2024 12:14 PM EDT [facility] Comment:Performed via liquid chromatography tandem mass spectrometry. Detection limit: 1 ng/mL. Individual target concentrations may vary due to target organ and time after transplant. This test has been developed and its performance characteristics determined by [facility] which is certified under [...] PharmD LAB BLOOD ORDERABLES Denisse valle Result [facility] [address] [place] [address], [facility] * (ABNORMAL) Renal Function Panel w/EGFR (11/01/2024 6:01 AM EDT) Sodium 139 133 - 146 mmol/L 11/01/2024 6:57 AM EDT [facility] Potassium 3.3(L) 3.5 - 5.3 mmol/L 11/01/2024 6:57 AM EDT [facility] Chloride 108 98 - 110 mmol/L 11/01/2024 6:57 AM EDT [facility] CO2 22 21 - 33 mmol/L 11/01/2024 6:57 AM EDT [facility] Anion Gap 9 3 - 16 mmol/L 11/01/2024 6:57 AM EDT [facility] BUN 37(H) 7 - 25 mg/dL 11/01/2024 6:57 AM EDT [facility] Creatinine 1.30 0.60 - 1.30 mg/dL 11/01/2024 6:57 AM EDT [facility] Glucose 163(H) 70 - 100 mg/dL 11/01/2024 6:57 AM EDT [facility] Calcium 8.2(L) 8.6 - 10.3 mg/dL 11/01/2024 6:57 AM EDT [facility] Phosphorus 2.9 2.1 - 4.7 mg/dL 11/01/2024 6:57 AM EDT [facility] Albumin 3.1(L) 3.5 - 5.7 g/dL 11/01/2024 6:57 AM EDT [facility] Osmolality, Calculated 300 278 - 305 mOsm/kg 11/01/2024 6:57 AM EDT [facility] EGFR 71 11/01/2024 6:57 AM EDT [facility] Comment:As of 2021, the [...] 6:01 AM EDT 11/01/2024 6:20 AM EDT [facility] BLOOD ORDERABLES Denisse l Result [facility] [address] [facility] * Magnesium (11/01/2024 6:01 AM EDT) Magnesium 1.5 1.5 - 2.5 mg/dL 11/01/2024 6:57 AM EDT [facility] Plasma 11/01/2024 6:01 AM EDT 11/01/2024 6:20 AM EDT [employer] BLOOD ORDERABLES Denisse l Result [facility] [address] * (ABNORMAL) Hepatic Function Panel (11/01/2024 6:01 AM EDT) Total Bilirubin 2.0(H) 0.0 - 1.5 mg/dL 11/01/2024 6:57 AM EDT [facility] Bilirubin, Direct 1.06(H) 0.00 - 0.40 mg/dL 11/01/2024 6:57 AM EDT [facility] AST 21 13 - 39 U/L 11/01/2024 6:57 AM EDT [facility] ALT 62(H) 7 - 52 U/L 11/01/2024 6:57 AM EDT [facility] Alkaline Phosphatase 114 36 - 125 U/L 11/01/2024 6:57 AM EDT [facility] Total Protein 4.6(L) 6.4 - 8.9 g/dL 11/01/2024 6:57 AM EDT [facility] Albumin 3.1(L) 3.5 - 5.7 g/dL 11/01/2024 6:57 AM EDT [facility] Bilirubin, Indirect 0.94 0.00 - 1.10 mg/dL 11/01/2024 6:57 AM EDT [facility] Plasma 11/01/2024 6:01 AM EDT 11/01/2024 6:20 AM EDT us Beata Horner R AND D LAB TECHNICIAN LAB BLOOD ORDERABLES Denisse valle Result [facility] [address] [place] [address], [facility] * (ABNORMAL) CBC (11/01/2024 6:01 AM EDT) WBC 5.9 3.8 - 10.8 10E3/uL 11/01/2024 6:29 AM EDT [facility] RBC 3.19(L) 4.20 - 5.80 10E6/uL 11/01/2024 6:29 AM EDT [facility] Hemoglobin 9.5(L) 13.2 - 17.1 g/dL 11/01/2024 6:29 AM EDT [facility] Hematocrit 27.8(L) 38.5 - 50.0 % 11/01/2024 6:29 AM EDT [facility] MCV 87.1 80.0 - 100.0 fL 11/01/2024 6:29 AM EDT [facility] MCH 29.9 27.0 - 33.0 pg 11/01/2024 6:29 AM EDT [facility] MCHC 34.3 32.0 - 36.0 g/dL 11/01/2024 6:29 AM EDT [facility] RDW 17.4(H) 11.0 - 15.0 % 11/01/2024 6:29 AM EDT [facility] Platelets 56(L) 140 - 400 10E3/uL 11/01/2024 6:29 AM EDT [facility] MPV 8.3 7.5 - 11.5 fL 11/01/2024 6:29 AM EDT [facility] Whole Blood 11/01/2024 6:01 AM EDT 11/01/2024 6:19 AM EDT Beata Horner R AND D LAB TECHNICIAN LAB BLOOD ORDERABLES Denisse l Result [facility] [address] [facility] * (ABNORMAL) POC Glucose Monitoring Device (10/31/2024 9:15 PM EDT) POC Glucose Monitoring Device 171(H) 70 - 100 mg/dL 10/31/2024 9:15 PM EDT [facility] Blood 10/31/2024 9:15 PM EDT 10/31/2024 9:15 PM EDT Semaj Mcnair III, MD POINT OF CARE TEST ORDERABLES Final Result [facility] [address] * (ABNORMAL) POC Glucose Monitoring Device (10/31/2024 5:56 PM EDT) POC Glucose Monitoring Device 179(H) 70 - 100 mg/dL 10/31/2024 5:57 PM EDT [facility] Blood 10/31/2024 5:56 PM EDT 10/31/2024 5:57 PM EDT us Semaj Mcnair III, MD POINT OF CARE TEST ORDERABLES Final Result [facility] [address] [address], [facility] * CT Abdomen and Pelvis [...] Adrenal gland: No focal nodule seen. Kidneys: [place] kidneys noted with nonobstructing calcifications on the right. Findings of postsurgical changes in the left [place] kidney. Mild right hydronephrosis without an obstructive [...] Adrenal gland: No focal nodule seen. Kidneys: [place] kidneys noted with nonobstructing calcifications on theright. Findings of postsurgical changes in the left [place] kidney. Mildright hydronephrosis without an obstructive course [...] QT: 400 ms QTc: 456 ms P Montgomery: 49 degrees R Montgomery: 3 degrees T Montgomery: 14 degrees Diagnosis Line: NORMAL SINUS RHYTHM ^ NORMAL ECG ^ ^ Confirmed by MD REID JAMES ([id number]) on 11/02/2024 6:56:52 AM Priti Geiger CNP ECG ORDERABLES Final Result [facility] * (ABNORMAL) Urinalysis w/Rfl to Microscopic (10/31/2024 1:18 PM EDT) Color, UA Straw Yellow,Straw 10/31/2024 1:46 PM EDT [facility] Clarity, UA Clear Clear 10/31/2024 1:46 PM EDT [facility] Specific [place], UA 1.013 1.005 - 1.035 10/31/2024 1:46 PM EDT [facility] pH, UA 6.5 5.0 - 8.0 10/31/2024 1:46 PM EDT [facility] Protein, UA Negative Negative mg/dL 10/31/2024 1:46 PM EDT [facility] Glucose, UA Negative Negative mg/dL 10/31/2024 1:46 PM EDT [facility] Ketones, UA Negative Negative mg/dL 10/31/2024 1:46 PM EDT [facility] Bilirubin, UA Negative Negative 10/31/2024 1:46 PM EDT [facility] Blood, UA Large(A) Negative 10/31/2024 1:46 PM EDT [facility] Nitrite, UA Negative Negative 10/31/2024 1:46 PM EDT [facility] Urobilinogen, UA <2.0 0.2 - 1.9 mg/dL 10/31/2024 1:46 PM EDT [facility] Leukocyte Esterase, UA Negative Negative 10/31/2024 1:46 PM EDT [facility] RBC, UA >100(H) 0 - 3 /HPF 10/31/2024 1:46 PM EDT [facility] WBC, UA 3 0 - 5 /HPF 10/31/2024 1:46 PM EDT [facility] Hyaline Casts, UA 3(H) 0 - 2 /LPF 10/31/2024 1:46 PM EDT [facility] Urine 10/31/2024 1:18 PM EDT 10/31/2024 1:32 PM EDT Priti Geiger CNP URINE ORDERABLES Final Result Performing Organization Address City/[facility]/ZIP Co de Phone Number [facility] [address] * (ABNORMAL) Post Kidney Transplant Urine Culture (10/31/2024 1:18 PM EDT) Culture Result Enterococcus faecium, Vancomycin Resistant(A) [facility] Comment: 1,000- <10,000 cfu/mL [...] ORDERA BLES Final Result Performing Organization Address City/[facility]/ZIP Co de Phone Number [facility] [address] * (ABNORMAL) POC Glucose Monitoring Device (10/31/2024 11:59 AM EDT) POC Glucose Monitoring Device 130(H) 70 - 100 mg/dL 10/31/2024 12:21 PM EDT [facility] Blood 10/31/2024 11:5 9 AM EDT 10/31/2024 12:21 PM EDT us Semaj Mcnair III, MD POINT OF CARE TEST ORDERABLES Final Result [facility] [address] [place] [address], [facility] * US Abdomen Limited (10/31/2024 [...] EXAM: US ABDOMEN LIMITED EXAM: US DUPLEX [id number] COMPLETE INDICATION: Post-op liver transplant COMPARISON: None [...] to poor acoustic windows. [place] right kidney measures 11.6 cm in length. [...] EXAM: US ABDOMEN LIMITED EXAM: US DUPLEX [id number] COMPLETE INDICATION: Post-op liver transplant COMPARISON: None [...] secondary to poor acousticwindows. [place] right kidney measures 11.6 cm in length. [...] 10:35 AM EDT Beata Horner [facility] US ORDERABLES Final R esult [...] 10/31/2024 10:29 AM EDT us Beata Horner R AND D LAB TECHNICIAN IMG US ORDERABLES Final R esult * US Duplex [id number] Comp (10/31/2024 10:19 AM EDT) Anatomical Region [...] EXAM: US ABDOMEN LIMITED EXAM: US DUPLEX [id number] COMPLETE INDICATION: Post-op liver transplant COMPARISON: None [...] to poor acoustic windows. [place] right kidney measures 11.6 cm in length. [...] EXAM: US ABDOMEN LIMITED EXAM: US DUPLEX [id number] COMPLETE INDICATION: Post-op liver transplant COMPARISON: None [...] secondary to poor acousticwindows. [place] right kidney measures 11.6 cm in length. [...] 10/31/2024 10:35 AM EDT us Beata Horner R AND D LAB TECHNICIAN IMG US ORDERABLES Final R esult * ECG 12-lead (MUSE) (10/31/2024 8:57 AM EDT) 10/31/2024 8:57 AM EDT Narrative MUSE - 11/01/2024 9:21 AM EDT Ventricular Rate: 83 BPM Atrial Rate: 83 BPM P-R Interval: 168 ms QRS Duration: 102 ms QT: 392 ms QTc: 460 ms P Montgomery: 64 degrees R Montgomery: -18 degrees T Montgomery: 7 degrees Diagnosis Line: NORMAL SINUS RHYTHM ^ NORMAL ECG ^ ^ Confirmed by MD JOE, OTIS ([id number]) on 11/01/2024 9:21:13 AM Kerisusan Geiger R AND D LAB TECHNICIAN ECG ORDERABLES Final Result [facility]USE * (ABNORMAL) POC Glucose Monitoring Device (10/31/2024 8:44 AM EDT) Pathologist [facility] POC Glucose Monitoring Device 145(H) 70 - 100 mg/dL 10/31/2024 8:45 AM EDT [facility] Blood 10/31/2024 8:44 AM EDT 10/31/2024 8:44 AM EDT Semaj Mcnair III, MD POINT OF CARE TEST ORDERABLES Final Result Performing Organization Address City/[facility] Co de Phone Number [facility] [address] * Tacrolimus level (10/31/2024 6:40 AM EDT) Pathologist [facility] Tacrolimus (LC-MS) 8.4 3.0 - 15.0 ng/mL 10/31/2024 10:05 AM EDT [facility] Comment:Performed via liquid chromatography tandem mass spectrometry. Detection limit: 1 ng/mL. Individual target concentrations may vary due to target organ and time after transplant. This test has been developed and its performance characteristics determined by [facility] which is certified under [...] PharmD LAB BLOOD ORDERABLES Denisse tori Result [facility] [address] [address], [facility] * (ABNORMAL) Renal Function Panel w/EGFR (10/31/2024 6:40 AM EDT) Sodium 141 133 - 146 mmol/L 10/31/2024 8:09 AM EDT [facility] Potassium 3.5 3.5 - 5.3 mmol/L 10/31/2024 8:09 AM EDT [facility] Chloride 111(H) 98 - 110 mmol/L 10/31/2024 8:09 AM EDT [facility] CO2 20(L) 21 - 33 mmol/L 10/31/2024 8:09 AM EDT [facility] Anion Gap 10 3 - 16 mmol/L 10/31/2024 8:09 AM EDT [facility] BUN 54(H) 7 - 25 mg/dL 10/31/2024 8:09 AM EDT [facility] Creatinine 1.75(H) 0.60 - 1.30 mg/dL 10/31/2024 8:09 AM EDT [facility] Glucose 136(H) 70 - 100 mg/dL 10/31/2024 8:09 AM EDT [facility] Calcium 8.7 8.6 - 10.3 mg/dL 10/31/2024 8:09 AM EDT [facility] Phosphorus 4.1 2.1 - 4.7 mg/dL 10/31/2024 8:09 AM EDT [facility] Albumin 3.2(L) 3.5 - 5.7 g/dL 10/31/2024 8:09 AM EDT [facility] Osmolality, Calculated 309(H) 278 - 305 mOsm/kg 10/31/2024 8:09 AM EDT [facility] EGFR 50 10/31/2024 8:09 AM EDT [facility] Comment:As of 2021, the [...] 10/31/2024 7:35 AM EDT Beata Dada Horner [facility] BLOOD ORDERABLES Denisse l Result Performing Organization Address [facility]/ZIP Co de Phone Number [facility] [address] [place] [address]. [address] * Magnesium (10/31/2024 6:40 AM EDT) Magnesium 1.8 1.5 - 2.5 mg/dL 10/31/2024 8:09 AM EDT [facility] Plasma 10/31/2024 6:40 AM EDT 10/31/2024 7:35 AM EDT [place] Horner [facility] BLOOD ORDERABLES Denisse l Result Performing Organization Address [facility] Co de Phone Number [facility] [address] [place] [address] * (ABNORMAL) Hepatic Function Panel (10/31/2024 6:40 AM EDT) Total Bilirubin 2.7(H) 0.0 - 1.5 mg/dL 10/31/2024 8:09 AM EDT [facility] Bilirubin, Direct 1.57(H) 0.00 - 0.40 mg/dL 10/31/2024 8:09 AM EDT [facility] AST 26 13 - 39 U/L 10/31/2024 8:09 AM EDT [facility] ALT 68(H) 7 - 52 U/L 10/31/2024 8:09 AM EDT [facility] Alkaline Phosphatase 112 36 - 125 U/L 10/31/2024 8:09 AM EDT [facility] Total Protein 4.7(L) 6.4 - 8.9 g/dL 10/31/2024 8:09 AM EDT [facility] Albumin 3.2(L) 3.5 - 5.7 g/dL 10/31/2024 8:09 AM EDT [facility] Bilirubin, Indirect 1.13(H) 0.00 - 1.10 mg/dL 10/31/2024 8:09 AM EDT [facility] Plasma 10/31/2024 6:40 AM EDT 10/31/2024 7:35 AM EDT us [facility] BLOOD ORDERABLES Denisse valle Result [facility] [address] * (ABNORMAL) CBC (10/31/2024 6:40 AM EDT) WBC 6.0 3.8 - 10.8 10E3/uL 10/31/2024 8:05 AM EDT [facility] RBC 3.14(L) 4.20 - 5.80 10E6/uL 10/31/2024 8:05 AM EDT [facility] Hemoglobin 9.6(L) 13.2 - 17.1 g/dL 10/31/2024 8:05 AM EDT [facility] Hematocrit 27.5(L) 38.5 - 50.0 % 10/31/2024 8:05 AM EDT [facility] MCV 87.6 80.0 - 100.0 fL 10/31/2024 8:05 AM EDT [facility] MCH 30.7 27.0 - 33.0 pg 10/31/2024 8:05 AM EDT [facility] MCHC 35.0 32.0 - 36.0 g/dL 10/31/2024 8:05 AM EDT [facility] RDW 17.9(H) 11.0 - 15.0 % 10/31/2024 8:05 AM EDT [facility] Platelets 44(L) 140 - 400 10E3/uL 10/31/2024 8:05 AM EDT [facility] Comment: CNV Specimen checked for clots. None detected. MPV 8.9 7.5 - 11.5 fL 10/31/2024 8:05 AM EDT [facility] Whole Blood 10/31/2024 6:40 AM EDT 10/31/2024 7:34 AM EDT Beata Horner [facility] BLOOD ORDERABLES Denisse l Result [facility] [address] [facility]. [address] * (ABNORMAL) POC Glucose Monitoring Device (10/30/2024 9:01 PM EDT) POC Glucose Monitoring Device 144(H) 70 - 100 mg/dL 10/30/2024 9:02 PM EDT [facility] Blood 10/30/2024 9:01 PM EDT 10/30/2024 9:01 PM EDT Semaj Mcnair III, MD POINT OF CARE TEST ORDERABLES Final Result Performing Organization Address City/[facility]/ZIP Co de Phone Number [facility] [address] [facility] * (ABNORMAL) POC Glucose Monitoring Device (10/30/2024 5:37 PM EDT) POC Glucose Monitoring Device 124(H) 70 - 100 mg/dL 10/30/2024 5:47 PM EDT [facility] Blood 10/30/2024 5:37 PM EDT 10/30/2024 5:47 PM EDT Semaj Mcnair III, MD POINT OF CARE TEST ORDERABLES Final Result Performing Organization Address [facility]/ZIP Co de Phone Number [facility] [address] [facility] * (ABNORMAL) POC Glucose Monitoring Device (10/30/2024 7:26 AM EDT) POC Glucose Monitoring Device 150(H) 70 - 100 mg/dL 10/30/2024 7:27 AM EDT [facility] Blood 10/30/2024 7:26 AM EDT 10/30/2024 7:27 AM EDT Semaj Mcnair III, MD POINT OF CARE TEST ORDERABLES Final Result Performing Organization Address [facility] Co de Phone Number [facility] [address] [place] [address]. [address] * Tacrolimus level (10/30/2024 7:13 AM EDT) Pathologist [facility] Tacrolimus (LC-MS) 9.5 3.0 - 15.0 ng/mL 10/30/2024 2:53 PM EDT [facility] Comment:Performed via liquid chromatography tandem mass spectrometry. Detection limit: 1 ng/mL. Individual target concentrations may vary due to target organ and time after transplant. This test has been developed and its performance characteristics determined by [facility] which is certified under [...] EDT 10/30/2024 7:26 AM EDT Priti Geiger [facility] BLOOD ORDERABLES Final Re sult Performing Organization Address [facility] Co de Phone Number [facility] [address] [facility] * ECG 12-lead (MUSE) (10/30/2024 6:51 AM EDT) 10/30/2024 6:51 AM EDT Narrative MUSE - 11/01/2024 9:21 AM EDT Ventricular Rate: 92 BPM Atrial Rate: 92 BPM P-R Interval: 174 ms QRS Duration: 96 ms QT: 376 ms QTc: 464 ms P Montgomery: 54 degrees R Montgomery: -24 degrees T Montgomery: 11 degrees Diagnosis Line: NORMAL SINUS RHYTHM ^ NORMAL ECG ^ ^ Confirmed by MD JOE, OTIS ([id number]) on 11/01/2024 9:21:09 AM Priti Geiger R AND D LAB TECHNICIAN ECG ORDERABLES Final Result MUSE * (ABNORMAL) Renal Function Panel w/EGFR (10/30/2024 5:41 AM EDT) Sodium 140 133 - 146 mmol/L 10/30/2024 6:18 AM EDT [facility] Potassium 3.8 3.5 - 5.3 mmol/L 10/30/2024 6:18 AM EDT [facility] Chloride 111(H) 98 - 110 mmol/L 10/30/2024 6:18 AM EDT [facility] CO2 17(L) 21 - 33 mmol/L 10/30/2024 6:18 AM EDT [facility] Anion Gap 12 3 - 16 mmol/L 10/30/2024 6:18 AM EDT [facility] BUN 62(H) 7 - 25 mg/dL 10/30/2024 6:18 AM EDT [facility] Creatinine 1.96(H) 0.60 - 1.30 mg/dL 10/30/2024 6:18 AM EDT [facility] Glucose 116(H) 70 - 100 mg/dL 10/30/2024 6:18 AM EDT [facility] Calcium 9.0 8.6 - 10.3 mg/dL 10/30/2024 6:18 AM EDT [facility] Phosphorus 4.6 2.1 - 4.7 mg/dL 10/30/2024 6:18 AM EDT [facility] Albumin 3.2(L) 3.5 - 5.7 g/dL 10/30/2024 6:18 AM EDT [facility] Osmolality, Calculated 309(H) 278 - 305 mOsm/kg 10/30/2024 6:18 AM EDT [facility] EGFR 43 10/30/2024 6:18 AM EDT [facility] Comment:As of 2021, the [...] 5:41 AM EDT 10/30/2024 5:47 AM EDT SpecifiedBy R AND D LAB TECHNICIAN LAB BLOOD ORDERABLES Denisse l Result Performing Organization Address City/[facility]/ZIP Co de Phone Number [facility] [address] [facility] * Magnesium (10/30/2024 5:41 AM EDT) Pathologist [facility] Magnesium 2.2 1.5 - 2.5 mg/dL 10/30/2024 6:18 AM EDT [facility] Plasma 10/30/2024 5:41 AM EDT 10/30/2024 5:47 AM EDT SpecifiedBy [facility] BLOOD ORDERABLES Denisse l Result [facility] [address] [facility] * (ABNORMAL) Hepatic Function Panel (10/30/2024 5:41 AM EDT) Total Bilirubin 3.6(H) 0.0 - 1.5 mg/dL 10/30/2024 6:18 AM EDT [facility] Bilirubin, Direct 1.95(H) 0.00 - 0.40 mg/dL 10/30/2024 6:18 AM EDT [facility] AST 33 13 - 39 U/L 10/30/2024 6:18 AM EDT [facility] ALT 71(H) 7 - 52 U/L 10/30/2024 6:18 AM EDT [facility] Alkaline Phosphatase 80 36 - 125 U/L 10/30/2024 6:18 AM EDT [facility] Total Protein 4.8(L) 6.4 - 8.9 g/dL 10/30/2024 6:18 AM EDT [facility] Albumin 3.2(L) 3.5 - 5.7 g/dL 10/30/2024 6:18 AM EDT [facility] Bilirubin, Indirect 1.65(H) 0.00 - 1.10 mg/dL 10/30/2024 6:18 AM EDT [facility] Plasma 10/30/2024 5:41 AM EDT 10/30/2024 5:47 AM EDT Beata Horner R AND D LAB TECHNICIAN LAB BLOOD ORDERABLES Denisse tori Result [facility] [address] [place] [address], [facility] * (ABNORMAL) CBC (10/30/2024 5:41 AM EDT) Pathologist [facility] WBC 8.1 3.8 - 10.8 10E3/uL 10/30/2024 8:06 AM EDT [facility] RBC 3.29(L) 4.20 - 5.80 10E6/uL 10/30/2024 8:06 AM EDT [facility] Hemoglobin 10.1(L) 13.2 - 17.1 g/dL 10/30/2024 8:06 AM EDT [facility] Hematocrit 28.8(L) 38.5 - 50.0 % 10/30/2024 8:06 AM EDT [facility] MCV 87.6 80.0 - 100.0 fL 10/30/2024 8:06 AM EDT [facility] MCH 30.6 27.0 - 33.0 pg 10/30/2024 8:06 AM EDT [facility] MCHC 34.9 32.0 - 36.0 g/dL 10/30/2024 8:06 AM EDT [facility] RDW 18.1(H) 11.0 - 15.0 % 10/30/2024 8:06 AM EDT [facility] Platelets 44(L) 140 - 400 10E3/uL 10/30/2024 8:06 AM EDT [facility] Comment: CNV Specimen checked for clots. None detected. MPV 8.3 7.5 - 11.5 fL 10/30/2024 8:06 AM EDT [facility] Whole Blood 10/30/2024 5:41 AM EDT 10/30/2024 5:50 AM EDT Beata Horner [facility] BLOOD ORDERABLES Denisse l Result [facility] [address] * (ABNORMAL) POC Glucose Monitoring Device (10/29/2024 10:18 PM EDT) POC Glucose Monitoring Device 140(H) 70 - 100 mg/dL 10/29/2024 10:18 PM EDT [facility] Blood 10/29/2024 10:1 8 PM EDT 10/29/2024 10:18 PM EDT Semaj Mcnair III, MD POINT OF CARE TEST ORDERABLES Final Result [facility] [address] * (ABNORMAL) POC Glucose Monitoring Device (10/29/2024 6:42 PM EDT) POC Glucose Monitoring Device 152(H) 70 - 100 mg/dL 10/29/2024 6:43 PM EDT [facility] Blood 10/29/2024 6:42 PM EDT 10/29/2024 6:43 PM EDT Semaj Mcnair III, MD POINT OF CARE TEST ORDERABLES Final Result Performing Organization Address [facility] de Phone Number [facility] [address] * (ABNORMAL) POC Glucose Monitoring Device (10/29/2024 11:35 AM EDT) POC Glucose Monitoring Device 130(H) 70 - 100 mg/dL 10/29/2024 11:36 AM EDT [facility] Blood 10/29/2024 11:3 5 AM EDT 10/29/2024 11:36 AM EDT Result [facility] Semaj Mcnair III, MD POINT OF CARE TEST ORDERABLES Final Result Performing Organization Address [facility] de Phone Number [facility] [address] * ECG 12 lead (MUSE) (10/29/2024 9:34 AM EDT) 10/29/2024 9:34 AM EDT Narrative MUSE - 10/29/2024 10:34 PM EDT Ventricular Rate: 97 BPM Atrial Rate: 97 BPM P-R Interval: 186 ms QRS Duration: 104 ms QT: 382 ms QTc: 485 ms P Montgomery: 54 degrees R Montgomery: -21 degrees T Montgomery: 1 degrees Diagnosis Line: NORMAL SINUS RHYTHM ^ NORMAL ECG ^ Confirmed by JORGE MACIAS ([id number]) on 10/29/2024 10:34:50 PM Afshan Bear MD ECG ORDERABLES Final Result Performing Organization Address City/[facility] Co de Phone Number MUSE * Tacrolimus level (10/29/2024 8:08 AM EDT) Tacrolimus (LC-MS) 10.4 3.0 - 15.0 ng/mL 10/29/2024 2:07 PM EDT [facility] Comment:Performed via liquid chromatography tandem mass spectrometry. Detection limit: 1 ng/mL. Individual target concentrations may vary due to target organ and time after transplant. This test has been developed and its performance characteristics determined by [facility] which is certified under the Clinical Laboratory [...] EDT 10/29/2024 8:21 AM EDT Priti Geiger [facility] BLOOD ORDERABLES Final Re sult Performing Organization Address [facility]/ZIP Co de Phone Number [facility] [address] * Prepare RBC, leukoreduced, 1 Units (10/29/2024 6:16 AM EDT) Product Code A9101G73 [facility] Unit Number [id number] [facility]LL Dispense Status Presumed Transfused_PT HCLL Blood Expiration Date [id number] HCLL Coding System [id number] [facility] Blood Bank Product Shay Plata MD BLOOD BANK PRODUCT O RDERABLES Final Result Performing Organization Address City/[facility]/ZIP Co de Phone Number HCLL * Prepare RBC, leukoreduced, 1 Units (10/29/2024 6:15 AM EDT) Product Code G1608U86 [facility] Unit Number [id number] [facility]LL Dispense Status Presumed Transfused_PT HCLL Blood Expiration Date [id number] HCLL Coding System [id number] HCLL Blood Bank Product Carlos Marks MD BLOOD BANK PRODUCT ORDERABL ES Final Result HCLL * Prepare RBC, leukoreduced, 1 Units (10/29/2024 6:15 AM EDT) Product Code H1536L51 [facility] Unit Number [id number] [facility]LL Dispense Status Presumed Transfused_PT HCLL Blood Expiration Date [id number] HCLL Coding System [id number] [facility] Blood Bank Product John Moreno MD BLOOD BANK PRODUCT ORDERABLE S Final Result HCLL * (ABNORMAL) Renal Function Panel w/EGFR (10/29/2024 5:07 AM EDT) Sodium 144 133 - 146 mmol/L 10/29/2024 5:49 AM EDT [facility] Potassium 3.8 3.5 - 5.3 mmol/L 10/29/2024 5:49 AM EDT [facility] Chloride 113(H) 98 - 110 mmol/L 10/29/2024 5:49 AM EDT [facility] CO2 17(L) 21 - 33 mmol/L 10/29/2024 5:49 AM EDT [facility] Anion Gap 14 3 - 16 mmol/L 10/29/2024 5:49 AM EDT [facility] BUN 57(H) 7 - 25 mg/dL 10/29/2024 5:49 AM EDT [facility] Creatinine 1.93(H) 0.60 - 1.30 mg/dL 10/29/2024 5:49 AM EDT [facility] Glucose 110(H) 70 - 100 mg/dL 10/29/2024 5:49 AM EDT [facility] Calcium 9.3 8.6 - 10.3 mg/dL 10/29/2024 5:49 AM EDT [facility] Phosphorus 4.8(H) 2.1 - 4.7 mg/dL 10/29/2024 5:49 AM EDT [facility] Albumin 3.5 3.5 - 5.7 g/dL 10/29/2024 5:49 AM EDT [facility] Osmolality, Calculated 314(H) 278 - 305 mOsm/kg 10/29/2024 5:49 AM EDT [facility] EGFR 44 10/29/2024 5:49 AM EDT [facility] Comment:As of 2021, the [...] 5:07 AM EDT 10/29/2024 5:13 AM EDT [facility] BLOOD ORDERABLES Denisse l Result Performing Organization Address City/[facility]/ZIP Co de Phone Number [facility] [address] [facility] * Magnesium (10/29/2024 5:07 AM EDT) Pathologist [facility] Magnesium 2.1 1.5 - 2.5 mg/dL 10/29/2024 5:49 AM EDT [facility] Plasma 10/29/2024 5:07 AM EDT 10/29/2024 5:13 AM EDT SpecifiedBy [facility] BLOOD ORDERABLES Denisse l Result [facility] [address] [facility] * (ABNORMAL) Hepatic Function Panel (10/29/2024 5:07 AM EDT) Total Bilirubin 4.2(H) 0.0 - 1.5 mg/dL 10/29/2024 5:49 AM EDT [facility] Bilirubin, Direct 2.85(H) 0.00 - 0.40 mg/dL 10/29/2024 5:49 AM EDT [facility] AST 31 13 - 39 U/L 10/29/2024 5:49 AM EDT [facility] ALT 88(H) 7 - 52 U/L 10/29/2024 5:49 AM EDT [facility] Alkaline Phosphatase 51 36 - 125 U/L 10/29/2024 5:49 AM EDT [facility] Total Protein 5.2(L) 6.4 - 8.9 g/dL 10/29/2024 5:49 AM EDT [facility] Albumin 3.5 3.5 - 5.7 g/dL 10/29/2024 5:49 AM EDT [facility] Bilirubin, Indirect 1.35(H) 0.00 - 1.10 mg/dL 10/29/2024 5:49 AM EDT [facility] Plasma 10/29/2024 5:07 AM EDT 10/29/2024 5:13 AM EDT Beata Horner [facility] BLOOD ORDERABLES Denisse valle Result [facility] [address] * (ABNORMAL) CBC (10/29/2024 5:07 AM EDT) Pathologist [facility] WBC 7.8 3.8 - 10.8 10E3/uL 10/29/2024 5:38 AM EDT [facility] RBC 3.05(L) 4.20 - 5.80 10E6/uL 10/29/2024 5:38 AM EDT [facility] Hemoglobin 9.0(L) 13.2 - 17.1 g/dL 10/29/2024 5:38 AM EDT [facility] Hematocrit 26.7(L) 38.5 - 50.0 % 10/29/2024 5:38 AM EDT [facility] MCV 87.4 80.0 - 100.0 fL 10/29/2024 5:38 AM EDT [facility] MCH 29.7 27.0 - 33.0 pg 10/29/2024 5:38 AM EDT [facility] MCHC 33.9 32.0 - 36.0 g/dL 10/29/2024 5:38 AM EDT [facility] RDW 18.3(H) 11.0 - 15.0 % 10/29/2024 5:38 AM EDT [facility] Platelets 41(L) 140 - 400 10E3/uL 10/29/2024 5:38 AM EDT [facility] Comment: CNV Specimen checked for clots. None detected. MPV 7.5 7.5 - 11.5 fL 10/29/2024 5:38 AM EDT [facility] Whole Blood 10/29/2024 5:07 AM EDT 10/29/2024 5:13 AM EDT Beata Horner [facility] BLOOD ORDERABLES Denisse valle Result [facility] [address] [place] [address], [facility] * (ABNORMAL) TEG-Bypass/ECMO/Liver HN (Factor function, Platelet/Fibrin Clot Strength w/Clot Breakdown, Heparinase In All Channels) (10/29/2024 5:07 AM EDT) Citrated Kaolin Reaction Time (TEGECMOLIVER) 8.9 4.6 - 9.1 minutes 10/29/2024 7:04 AM EDT [facility] Citrated Kaolin W/Heparinase Reaction Time (TEGECMOLIVER) 7.4 4.3 - 8.3 minutes 10/29/2024 7:04 AM EDT [facility] Citrated Kaolin Maximum Amplitude (TEGECMOLIVER) 52.9 52.0 - 69.0 mm 10/29/2024 7:04 AM EDT [facility] Citrated Functional Fibrinogen W/Heparinase Maximum Amplitude(TEGEC MOLIVER) 20.7 15.0 - 34.0 mm 10/29/2024 7:04 AM EDT [facility] Citrated Rapid Teg W/Heparinase Maximum Amplitude (TEGECMOLIVER) 49.7(L) 53.0 - 69.0 mm 10/29/2024 7:04 AM EDT [facility] Citrated Kaolin w/Heparinase Percent Lysis (TEGECMOLIVER) 0.0 0.0 - 3.2 % 10/29/2024 7:04 AM EDT [facility] Whole Blood (Citrate) 10/29/2024 5:07 AM EDT 10/29/2024 5:10 AM EDT us Kemar Shani MD LAB BLOOD ORDERABLES Final Result [facility] [address] [place], [place] [address] * (ABNORMAL) TEG-Bypass/ECMO/Liver HN (Factor function, Platelet/Fibrin Clot Strength w/Clot Breakdown, Heparinase In All Channels) (10/28/2024 11:55 PM EDT) [facility] Citrated Kaolin Reaction Time (TEGECMOLIVER) 8.6 4.6 - 9.1 minutes 10/29/2024 2:01 AM EDT [facility] Citrated Kaolin W/Heparinase Reaction Time (TEGECMOLIVER) 8.7(H) 4.3 - 8.3 minutes 10/29/2024 2:01 AM EDT [facility] Citrated Kaolin Maximum Amplitude (TEGECMOLIVER) 47.9(L) 52.0 - 69.0 mm 10/29/2024 2:01 AM EDT [facility] Citrated Functional Fibrinogen W/Heparinase Maximum Amplitude(TEGEC MOLIVER) 22.0 15.0 - 34.0 mm 10/29/2024 2:01 AM EDT [facility] Citrated Rapid Teg W/Heparinase Maximum Amplitude (TEGECMOLIVER) 45.9(L) 53.0 - 69.0 mm 10/29/2024 2:01 AM EDT [facility] Citrated Kaolin w/Heparinase Percent Lysis (TEGECMOLIVER) 0.0 0.0 - 3.2 % 10/29/2024 2:01 AM EDT [facility] Whole Blood (Citrate) 10/28/2024 11:55 PM EDT 10/28/2024 11:58 PM EDT Kemar Sahni MD LAB BLOOD ORDERABLES Final Result Performing Organization Address City/State/[facility] Co de Phone Number [facility] [address] [place] [address], [facility] * (ABNORMAL) CBC, STAT (10/28/2024 8:04 PM EDT) WBC 3.9 3.8 - 10.8 10E3/uL 10/28/2024 8:36 PM EDT [facility] RBC 2.66(L) 4.20 - 5.80 10E6/uL 10/28/2024 8:36 PM EDT [facility] Hemoglobin 8.0(L) 13.2 - 17.1 g/dL 10/28/2024 8:36 PM EDT [facility] Hematocrit 23.0(L) 38.5 - 50.0 % 10/28/2024 8:36 PM EDT [facility] MCV 86.4 80.0 - 100.0 fL 10/28/2024 8:36 PM EDT [facility] MCH 29.9 27.0 - 33.0 pg 10/28/2024 8:36 PM EDT [facility] MCHC 34.6 32.0 - 36.0 g/dL 10/28/2024 8:36 PM EDT [facility] RDW 18.6(H) 11.0 - 15.0 % 10/28/2024 8:36 PM EDT [facility] Platelets 29(L) 140 - 400 10E3/uL 10/28/2024 8:36 PM EDT [facility] Comment: CNV Specimen checked for clots. None detected. MPV 7.8 7.5 - 11.5 fL 10/28/2024 8:36 PM EDT [facility] Whole Blood 10/28/2024 8:04 PM EDT 10/28/2024 8:14 PM EDT Carlos Marks MD LAB BLOOD ORDERABLES Final Result [facility] [address] * (ABNORMAL) POC Glucose Monitoring Device (10/28/2024 8:03 PM EDT) [facility] POC Glucose Monitoring Device 122(H) 70 - 100 mg/dL 10/28/2024 8:04 PM EDT [facility] Blood 10/28/2024 8:03 PM EDT 10/28/2024 8:04 PM EDT Semaj Mcnair III, MD POINT OF CARE TEST ORDERABLES Final Result Performing Organization Address [facility] Co de Phone Number [facility] [address] * (ABNORMAL) TEG-Bypass/ECMO/Liver HN (Factor function, Platelet/Fibrin Clot Strength w/Clot Breakdown, Heparinase In All Channels) (10/28/2024 6:39 PM EDT) [facility] Citrated Kaolin Reaction Time (TEGECMOLIVER) 9.0 4.6 - 9.1 minutes 10/28/2024 7:50 PM EDT [facility] Citrated Kaolin W/Heparinase Reaction Time (TEGECMOLIVER) 8.3 4.3 - 8.3 minutes 10/28/2024 7:50 PM EDT [facility] Citrated Kaolin Maximum Amplitude (TEGECMOLIVER) 47.6(L) 52.0 - 69.0 mm 10/28/2024 7:50 PM EDT [facility] Citrated Functional Fibrinogen W/Heparinase Maximum Amplitude(TEGEC MOLIVER) 20.4 15.0 - 34.0 mm 10/28/2024 7:50 PM EDT [facility] Citrated Rapid Teg W/Heparinase Maximum Amplitude (TEGECMOLIVER) 44.0(L) 53.0 - 69.0 mm 10/28/2024 7:50 PM EDT [facility] Citrated Kaolin w/Heparinase Percent Lysis (TEGECMOLIVER) 0.0 0.0 - 3.2 % 10/28/2024 7:50 PM EDT [facility] Whole Blood (Citrate) 10/28/2024 6:39 PM EDT 10/28/2024 6:42 PM EDT Kemar Sahni MD LAB BLOOD ORDERABLES Final Result Performing Organization Address [facility] Co de Phone Number [facility] [address] [facility] * (ABNORMAL) POC Glucose Monitoring Device (10/28/2024 5:31 PM EDT) [facility] POC Glucose Monitoring Device 130(H) 70 - 100 mg/dL 10/28/2024 5:31 PM EDT [facility] Blood 10/28/2024 5:31 PM EDT 10/28/2024 5:31 PM EDT us Semaj Mcnair III, MD POINT OF CARE TEST ORDERABLES Final Result Performing Organization Address [facility] de Phone Number [facility] [address] [facility] * Transfuse RBC Transfusion Rate: Per dept routine (10/28/2024 5:23 PM EDT) Shay Plata MD NURSING TREATMENT OR DERABLES - BLOOD ADMIN Final Result Performing Organization Address [facility] Co de Phone Number EXTERNAL * Transfuse RBC Transfusion Rate: Per dept routine, 1 Units (10/28/2024 5:23 PM EDT) us Shay Plata MD NURSING TREATMENT OR DERABLES - BLOOD ADMIN Final Result Performing Organization Address [facility] Co de Phone Number EXTERNAL * [...] EXAM: US ABDOMEN LIMITED EXAM: US DUPLEX [id number] COMPLETE INDICATION: Post-op liver transplant DATE: 10/28/2024 [...] vena cava is patent. [place] right kidney is partially visualized. A prominent [...] EXAM: US ABDOMEN LIMITED EXAM: US DUPLEX [id number] COMPLETE INDICATION: Post-op liver transplant DATE: 10/28/2024 [...] vena cava is patent. [place] right kidney is partially visualized. A prominent [...] ORDERABLES Fi nal Result * US Duplex [id number]-[id number] Comp (10/28/2024 4:23 PM EDT) Anatomical Region [...] EXAM: US ABDOMEN LIMITED EXAM: US DUPLEX [id number] COMPLETE INDICATION: Post-op liver transplant DATE: 10/28/2024 [...] vena cava is patent. [place] right kidney is partially visualized. A prominent [...] EXAM: US ABDOMEN LIMITED EXAM: US DUPLEX [id number] COMPLETE INDICATION: Post-op liver transplant DATE: 10/28/2024 [...] vena cava is patent. [place] right kidney is partially visualized. A prominent [...] EDT us Shay Plata MD [facility] [place] Fi [place]al Result * (ABNORMAL) CBC, STAT (10/28/2024 2:49 PM EDT) WBC 4.0 3.8 - 10.8 10E3/uL 10/28/2024 3:07 PM EDT [facility] RBC 2.44(L) 4.20 - 5.80 10E6/uL 10/28/2024 3:07 PM EDT [facility] Hemoglobin 7.5(L) 13.2 - 17.1 g/dL 10/28/2024 3:07 PM EDT [facility] Hematocrit 21.4(L) 38.5 - 50.0 % 10/28/2024 3:07 PM EDT [facility] MCV 87.6 80.0 - 100.0 fL 10/28/2024 3:07 PM EDT [facility] MCH 30.6 27.0 - 33.0 pg 10/28/2024 3:07 PM EDT [facility] MCHC 34.9 32.0 - 36.0 g/dL 10/28/2024 3:07 PM EDT [facility] RDW 18.4(H) 11.0 - 15.0 % 10/28/2024 3:07 PM EDT [facility] Platelets 30(L) 140 - 400 10E3/uL 10/28/2024 3:07 PM EDT [facility] Comment: CNV Specimen checked for clots. None detected. MPV 7.7 7.5 - 11.5 fL 10/28/2024 3:07 PM EDT [facility] Whole Blood 10/28/2024 2:49 PM EDT 10/28/2024 2:53 PM EDT us Carlos Marks MD LAB BLOOD ORDERABLES Final Result [facility] [address] [place] [address], [facility] * ECG 12 lead (MUSE) (10/28/2024 1:22 PM EDT) 10/28/2024 1:22 PM EDT Narrative MUSE - 10/29/2024 10:34 PM EDT Ventricular Rate: 104 BPM Atrial Rate: 104 BPM P-R Interval: 172 ms QRS Duration: 90 ms QT: 354 ms QTc: 465 ms P Montgomery: 58 degrees R Montgomery: -19 degrees T Montgomery: 38 degrees Diagnosis Line: SINUS TACHYCARDIA ^ OTHERWISE NORMAL ECG ^ ^ Confirmed by JORGE MACIAS ([id number]) on 10/29/2024 10:34:22 PM us Hilalry Fernandes PharmD ECG ORDERABLES Final Res ult MUSE * (ABNORMAL) POC Glucose Monitoring Device (10/28/2024 12:54 PM EDT) [facility] POC Glucose Monitoring Device 119(H) 70 - 100 mg/dL 10/28/2024 12:55 PM EDT [facility] Blood 10/28/2024 12:5 4 PM EDT 10/28/2024 12:55 PM EDT us Semaj Mcnair III, MD POINT OF CARE TEST ORDERABLES Final Result Performing Organization Address [facility] Co de Phone Number [facility] [address] * Transfuse RBC Transfusion Rate: Per dept routine (10/28/2024 12:31 PM EDT) us Carlos Marks MD NURSING TREATMENT ORDERABLE S - BLOOD ADMIN Final Result EXTERNAL * Transfuse RBC Transfusion Rate: Per dept routine, 1 Units (10/28/2024 12:31 PM EDT) us Carlos Marks MD NURSING TREATMENT ORDERABLE S - BLOOD ADMIN Final Result Performing Organization Address City/[facility]/ZIP Co de Phone Number EXTERNAL * Protime-INR, STAT (10/28/2024 11:09 AM EDT) Protime 14.3 12.1 - 15.1 seconds 10/28/2024 11:29 AM EDT [facility] INR 1.1 0.9 - 1.1 10/28/2024 11:29 AM EDT [facility] Comment: RECOMMENDED THERAPEUTIC RANGES USING INR : Stable oral anticoagulant therapy: 2.0 - 3.0 Mechanical prosthetic heart valve: 2.5 - 3.5 Recurrent acute myocardial infarction: 2.5 - 3.5 Plasma 10/28/2024 11:0 9 AM EDT 10/28/2024 11:16 AM EDT us Carlos Marks MD LAB BLOOD ORDERABLES Final Result Performing Organization Address [facility] Co de Phone Number [facility] [address] * (ABNORMAL) Lactic Acid, STAT (10/28/2024 11:09 AM EDT) Lactate 0.3(L) 0.5 - 2.2 mmol/L 10/28/2024 11:37 AM EDT [facility] Plasma 10/28/2024 11:0 9 AM EDT 10/28/2024 11:15 AM EDT us Carlos Marks MD LAB BLOOD ORDERABLES Final Result Performing Organization Address [facility] Co de Phone Number [facility] [address] [facility] * Magnesium, STAT (10/28/2024 11:09 AM EDT) Magnesium 2.1 1.5 - 2.5 mg/dL 10/28/2024 11:47 AM EDT [facility] Plasma 10/28/2024 11:0 9 AM EDT 10/28/2024 11:16 AM EDT us Carlos Marks MD LAB BLOOD ORDERABLES Final Result [facility] [address] [place] [id number], [facility] * (ABNORMAL) Renal Function Panel w/EGFR, STAT (10/28/2024 11:09 AM EDT) Sodium 144 133 - 146 mmol/L 10/28/2024 11:47 AM EDT [facility] Potassium 3.4(L) 3.5 - 5.3 mmol/L 10/28/2024 11:47 AM EDT [facility] Chloride 112(H) 98 - 110 mmol/L 10/28/2024 11:47 AM EDT [facility] CO2 22 21 - 33 mmol/L 10/28/2024 11:47 AM EDT [facility] Anion Gap 10 3 - 16 mmol/L 10/28/2024 11:47 AM EDT [facility] BUN 57(H) 7 - 25 mg/dL 10/28/2024 11:47 AM EDT [facility] Creatinine 2.01(H) 0.60 - 1.30 mg/dL 10/28/2024 11:47 AM EDT [facility] Glucose 108(H) 70 - 100 mg/dL 10/28/2024 11:47 AM EDT [facility] Calcium 8.8 8.6 - 10.3 mg/dL 10/28/2024 11:47 AM EDT [facility] Phosphorus 4.0 2.1 - 4.7 mg/dL 10/28/2024 11:47 AM EDT [facility] Albumin 3.3(L) 3.5 - 5.7 g/dL 10/28/2024 11:47 AM EDT [facility] Osmolality, Calculated 314(H) 278 - 305 mOsm/kg 10/28/2024 11:47 AM EDT [facility] EGFR 42 10/28/2024 11:47 AM EDT [facility] Comment:As of 2021, the [...] Marks MD LAB BLOOD ORDERABLES Final Result [facility] [address] * (ABNORMAL) TEG-Bypass/ECMO/Liver HN (Factor function, Platelet/Fibrin Clot Strength w/Clot Breakdown, Heparinase In All Channels) (10/28/2024 11:09 AM EDT) [facility] Citrated Kaolin Reaction Time (TEGECMOLIVER) 9.2(H) 4.6 - 9.1 minutes 10/28/2024 12:30 PM EDT [facility] Citrated Kaolin W/Heparinase Reaction Time (TEGECMOLIVER) 9.6(H) 4.3 - 8.3 minutes 10/28/2024 12:30 PM EDT [facility] Citrated Kaolin Maximum Amplitude (TEGECMOLIVER) 51.2(L) 52.0 - 69.0 mm 10/28/2024 12:30 PM EDT [facility] Citrated Functional Fibrinogen W/Heparinase Maximum Amplitude(TEGEC MOLIVER) 21.6 15.0 - 34.0 mm 10/28/2024 12:30 PM EDT [facility] Citrated Rapid Teg W/Heparinase Maximum Amplitude (TEGECMOLIVER) 49.3(L) 53.0 - 69.0 mm 10/28/2024 12:30 PM EDT [facility] Citrated Kaolin w/Heparinase Percent Lysis (TEGECMOLIVER) 0.0 0.0 - 3.2 % 10/28/2024 12:30 PM EDT [facility] Whole Blood (Citrate) 10/28/2024 11:09 AM EDT 10/28/2024 11:14 AM EDT Kemar Sahni MD LAB BLOOD ORDERABLES Final Result [facility] [address] [place] [address], [facility] * (ABNORMAL) CBC (10/28/2024 10:21 AM EDT) WBC 4.1 3.8 - 10.8 10E3/uL 10/28/2024 10:41 AM EDT [facility] RBC 2.30(L) 4.20 - 5.80 10E6/uL 10/28/2024 10:41 AM EDT [facility] Hemoglobin 7.1(L) 13.2 - 17.1 g/dL 10/28/2024 10:41 AM EDT [facility] Hematocrit 20.4(L) 38.5 - 50.0 % 10/28/2024 10:41 AM EDT [facility] MCV 88.5 80.0 - 100.0 fL 10/28/2024 10:41 AM EDT [facility] MCH 30.7 27.0 - 33.0 pg 10/28/2024 10:41 AM EDT [facility] MCHC 34.7 32.0 - 36.0 g/dL 10/28/2024 10:41 AM EDT [facility] RDW 18.7(H) 11.0 - 15.0 % 10/28/2024 10:41 AM EDT [facility] Platelets 37(L) 140 - 400 10E3/uL 10/28/2024 10:41 AM EDT [facility] Comment: CNV Specimen checked for clots. None detected. MPV 7.6 7.5 - 11.5 fL 10/28/2024 10:41 AM EDT [facility] Whole Blood 10/28/2024 10:2 1 AM EDT 10/28/2024 10:29 AM EDT Carlos Marks MD LAB BLOOD ORDERABLES Final Result Performing Organization Address City/[facility]/ZIP Co de Phone Number [facility] [address] [facility]. [address] * POC Glucose Monitoring Device (10/28/2024 9:07 AM EDT) POC Glucose Monitoring Device 97 70 - 100 mg/dL 10/28/2024 9:08 AM EDT [facility] Blood 10/28/2024 9:07 AM EDT 10/28/2024 9:08 AM EDT Semaj Mcnair III, MD POINT OF CARE TEST ORDERABLES Final Result Performing Organization Address [facility] de Phone Number [facility] [address] [facility]. [address] * (ABNORMAL) Tacrolimus level (10/28/2024 8:20 AM EDT) Pathologist [facility] Tacrolimus (LC-MS) <1.0(L) 3.0 - 15.0 ng/mL 10/28/2024 2:02 PM EDT [facility] Comment:Performed via liquid chromatography tandem mass spectrometry. Detection limit: 1 ng/mL. Individual target concentrations may vary due to target organ and time after transplant. This test has been developed and its performance characteristics determined by [facility] which is certified under [...] ORDERABLES Final Re sult Performing Organization Address [facility]/ZIP Co de Phone Number [facility] [address] [facility]. [address] * (ABNORMAL) POC Glucose Monitoring Device (10/28/2024 8:10 AM EDT) POC Glucose Monitoring Device 102(H) 70 - 100 mg/dL 10/28/2024 8:11 AM EDT [facility] Blood 10/28/2024 8:10 AM EDT 10/28/2024 8:11 AM EDT Semaj Mcnair III, MD POINT OF CARE TEST ORDERABLES Final Result Performing Organization Address [facility] Co de Phone Number [facility] [address] [place] [address]. [address] * POC Glucose Monitoring Device (10/28/2024 6:17 AM EDT) POC Glucose Monitoring Device 100 70 - 100 mg/dL 10/28/2024 6:18 AM EDT [facility] Blood 10/28/2024 6:17 AM EDT 10/28/2024 6:18 AM EDT Semaj Mcnair III, MD POINT OF CARE TEST ORDERABLES Final Result Performing Organization Address [facility] de Phone Number [facility] [address] [place] [address]. [address] * Prepare Platelets, leukoreduced (10/28/2024 6:15 AM EDT) Product Code K4790A69 HCLL Unit Number [id number] HCLL Dispense Status Presumed Transfused_PT HCLL Blood Expiration Date HCLL Coding System [id number] HCLL Product Code O3137N39 HCLL Unit Number [id number] HCLL Dispense Status Presumed Transfused_PT HCLL Blood Expiration Date HCLL Coding System [id number] HCLL us Attending Provider Unknown BLOOD BANK PRODUCT OR DERABLES Final Result HCLL * Prepare Fresh Frozen Plasma (10/28/2024 6:15 AM EDT) Product Code R3355H33 HCLL Unit Number [id number] HCLL Dispense Status Released from Crossmatch_RE HCLL Blood Expiration Date HCLL Coding System [id number] HCLL Product Code B7983N97 HCLL Unit Number [id number] HCLL Dispense Status Presumed Transfused_PT HCLL Blood Expiration Date HCLL Coding System CYQA089 HCLL Product Code V9224R97 HCLL Unit Number [id number] HCLL Dispense Status Released from Crossmatch_RE HCLL Blood Expiration Date HCLL Coding System [id number] HCLL Product Code T0528H05 HCLL Unit Number [id number] HCLL Dispense Status Presumed Transfused_PT HCLL Blood Expiration Date HCLL Coding System [id number] HCLL Product Code E9159U38 HCLL Unit Number [id number] HCLL Dispense Status Released from Crossmatch_RE HCLL Blood Expiration Date [id number] HCLL Coding System KSPT485 HCLL Attending Provider Unknown BLOOD BANK PRODUCT OR DERABLES Final Result HCLL * Prepare RBC, leukoreduced (10/28/2024 6:15 AM EDT) Product Code B7306H58 HCLL Unit Number [id number] HCLL Dispense Status Released from Crossmatch_RE HCLL Blood Expiration Date [id number] HCLL Coding System IXMJ743 HCLL Product Code W8523Y84 HCLL Unit Number [id number] HCLL Dispense Status Presumed Transfused_PT HCLL Blood Expiration Date 530671968167 HCLL Coding System [id number] HCLL Product Code A9297L23 HCLL Unit Number [id number] HCLL Dispense Status Released from Crossmatch_RE HCLL Blood Expiration Date 970387621862 HCLL Coding System TMMJ981 HCLL Product Code N8346X53 HCLL Unit Number [id number] HCLL Dispense Status Presumed Transfused_PT HCLL Blood Expiration Date 077586611279 HCLL Coding System JQVR638 HCLL Product Code M9615D08 HCLL Unit Number [id number] HCLL Dispense Status Released from Crossmatch_RE HCLL Blood Expiration Date HCLL Coding System DCEA804 HCLL Attending Provider Unknown BLOOD BANK PRODUCT OR DERABLES Final Result Performing Organization Address [facility] Co de Phone Number HCLL * Prepare Platelets, leukoreduced, 1 Units (10/28/2024 6:15 AM EDT) Product Code U9638Y38 HCLL Unit Number [id number] HCLL Dispense Status Presumed Transfused_PT HCLL Blood Expiration Date HCLL Coding System CSRP366 HCLL Blood Bank Product John Pina MD BLOOD BANK PRODUCT ORDERABLES F inal Result Performing Organization Address [facility] de Phone Number HCLL * Prepare Cryoprecipitate, 1 Units (10/28/2024 6:15 AM EDT) Product Code O5183H10 HCLL Unit Number [id number] HCLL Dispense Status Presumed Transfused_PT HCLL Blood Expiration Date HCLL Coding System SSPH655 HCLL Product Code B6981Q35 HCLL Unit Number [id number] HCLL Dispense Status Presumed Transfused_PT HCLL Blood Expiration Date HCLL Coding System ZICP155 HCLL Blood Bank Product John Pina MD BLOOD BANK PRODUCT ORDERABLES F inal Result Performing Organization Address [facility]/ZIP Co de Phone Number HCLL * Prepare Fresh Frozen Plasma, 1 Units (10/28/2024 6:15 AM EDT) Product Code N6236I17 HCLL Unit Number [id number] HCLL Dispense Status Presumed Transfused_PT HCLL Blood Expiration Date [id number] HCLL Coding System [id number] HCLL Blood Bank Product John Pina MD BLOOD BANK PRODUCT ORDERABLES F inal Result Performing Organization Address [facility]/ZIP Co de Phone Number HCLL * Prepare Cryoprecipitate, 1 Units (10/28/2024 6:15 AM EDT) Product Code L4980S65 HCLL Unit Number [id number] HCLL Dispense Status Presumed Transfused_PT HCLL Blood Expiration Date HCLL Coding System EDYX802 HCLL Product Code V6036G04 HCLL Unit Number [id number] HCLL Dispense Status Presumed Transfused_PT HCLL Blood Expiration Date 524996988277 HCLL Coding System JWDY687 HCLL Product Code S5537Y72 HCLL Unit Number [id number] HCLL Dispense Status Presumed Transfused_PT HCLL Blood Expiration Date 330340118222 HCLL Coding System KPDJ388 HCLL Product Code L0875Y31 HCLL Unit Number [id number] HCLL Dispense Status Presumed Transfused_PT HCLL Blood Expiration Date [id number] HCLL Coding System QCVG202 HCLL Blood Bank Product John Pina MD BLOOD BANK PRODUCT ORDERABLES F inal Result HCLL * (ABNORMAL) POC Glucose Monitoring Device (10/28/2024 4:55 AM EDT) POC Glucose Monitoring Device 104(H) 70 - 100 mg/dL 10/28/2024 4:57 AM EDT [facility] Blood 10/28/2024 4:55 AM EDT 10/28/2024 4:57 AM EDT Semaj Mcnair III, MD POINT OF CARE TEST ORDERABLES Final Result [facility] [address] * TEG-Bypass/ECMO/Liver HN (Factor function, Platelet/Fibrin Clot Strength w/Clot Breakdown, Heparinase In All Channels) (10/28/2024 4:13 AM EDT) [facility] Citrated Kaolin Reaction Time (TEGECMOLIVER) 7.2 4.6 - 9.1 minutes 10/28/2024 5:38 AM EDT [facility] Citrated Kaolin W/Heparinase Reaction Time (TEGECMOLIVER) 7.8 4.3 - 8.3 minutes 10/28/2024 5:38 AM EDT [facility] Citrated Kaolin Maximum Amplitude (TEGECMOLIVER) 53.0 52.0 - 69.0 mm 10/28/2024 5:38 AM EDT [facility] Citrated Functional Fibrinogen W/Heparinase Maximum Amplitude(TEGEC MOLIVER) 21.4 15.0 - 34.0 mm 10/28/2024 5:38 AM EDT [facility] Citrated Rapid Teg W/Heparinase Maximum Amplitude (TEGECMOLIVER) 54.7 53.0 - 69.0 mm 10/28/2024 5:38 AM EDT [facility] Citrated Kaolin w/Heparinase Percent Lysis (TEGECMOLIVER) 0.0 0.0 - 3.2 % 10/28/2024 5:38 AM EDT [facility] Whole Blood (Citrate) 10/28/2024 4:13 AM EDT 10/28/2024 4:28 AM EDT Kemar Sahni MD LAB BLOOD ORDERABLES Final Result [facility] [address] * Protime-INR (10/28/2024 4:13 AM EDT) Protime 14.6 12.1 - 15.1 seconds 10/28/2024 4:53 AM EDT [facility] INR 1.1 0.9 - 1.1 10/28/2024 4:53 AM EDT [facility] Comment: RECOMMENDED THERAPEUTIC RANGES USING INR : Stable oral anticoagulant therapy: 2.0 - 3.0 Mechanical prosthetic heart valve: 2.5 - 3.5 Recurrent acute myocardial infarction: 2.5 - 3.5 Plasma 10/28/2024 4:13 AM EDT 10/28/2024 4:41 AM EDT Kemar Sahni MD LAB BLOOD ORDERABLES Final Result Performing Organization Address City/[facility]/ZIP Co de Phone Number [facility] [address] [facility]. [address] * Magnesium (10/28/2024 4:13 AM EDT) Magnesium 2.2 1.5 - 2.5 mg/dL 10/28/2024 5:15 AM EDT [facility] Plasma 10/28/2024 4:13 AM EDT 10/28/2024 4:41 AM EDT Kemar Sahni MD LAB BLOOD ORDERABLES Final Result [facility] [address] * (ABNORMAL) Hepatic Function Panel (10/28/2024 4:13 AM EDT) Total Bilirubin 2.3(H) 0.0 - 1.5 mg/dL 10/28/2024 5:15 AM EDT [facility] Bilirubin, Direct 1.67(H) 0.00 - 0.40 mg/dL 10/28/2024 5:15 AM EDT [facility] AST 44(H) 13 - 39 U/L 10/28/2024 5:15 AM EDT [facility] ALT 101(H) 7 - 52 U/L 10/28/2024 5:15 AM EDT [facility] Alkaline Phosphatase 26(L) 36 - 125 U/L 10/28/2024 5:15 AM EDT [facility] Total Protein 4.5(L) 6.4 - 8.9 g/dL 10/28/2024 5:15 AM EDT [facility] Albumin 3.1(L) 3.5 - 5.7 g/dL 10/28/2024 5:15 AM EDT [facility] Bilirubin, Indirect 0.63 0.00 - 1.10 mg/dL 10/28/2024 5:15 AM EDT [facility] Plasma 10/28/2024 4:13 AM EDT 10/28/2024 4:41 AM EDT us Kemar Sahni MD LAB BLOOD ORDERABLES Final Result Performing Organization Address City/State/[facility] Co de Phone Number [facility] [address] * (ABNORMAL) Renal Function Panel w/EGFR (10/28/2024 4:13 AM EDT) Sodium 142 133 - 146 mmol/L 10/28/2024 5:15 AM EDT [facility] Potassium 3.5 3.5 - 5.3 mmol/L 10/28/2024 5:15 AM EDT [facility] Chloride 111(H) 98 - 110 mmol/L 10/28/2024 5:15 AM EDT [facility] CO2 22 21 - 33 mmol/L 10/28/2024 5:15 AM EDT [facility] Anion Gap 9 3 - 16 mmol/L 10/28/2024 5:15 AM EDT [facility] BUN 58(H) 7 - 25 mg/dL 10/28/2024 5:15 AM EDT [facility] Creatinine 2.24(H) 0.60 - 1.30 mg/dL 10/28/2024 5:15 AM EDT [facility] Glucose 103(H) 70 - 100 mg/dL 10/28/2024 5:15 AM EDT [facility] Calcium 9.1 8.6 - 10.3 mg/dL 10/28/2024 5:15 AM EDT [facility] Phosphorus 4.8(H) 2.1 - 4.7 mg/dL 10/28/2024 5:15 AM EDT [facility] Albumin 3.1(L) 3.5 - 5.7 g/dL 10/28/2024 5:15 AM EDT [facility] Osmolality, Calculated 310(H) 278 - 305 mOsm/kg 10/28/2024 5:15 AM EDT [facility] EGFR 37 10/28/2024 5:15 AM EDT [facility] Comment:As of 2021, the [...] Sahni MD LAB BLOOD ORDERABLES Final Result [facility] [address] [place] [address], [facility] * (ABNORMAL) CBC (10/28/2024 4:13 AM EDT) WBC 4.5 3.8 - 10.8 10E3/uL 10/28/2024 5:09 AM EDT [facility] RBC 2.39(L) 4.20 - 5.80 10E6/uL 10/28/2024 5:09 AM EDT [facility] Hemoglobin 7.3(L) 13.2 - 17.1 g/dL 10/28/2024 5:09 AM EDT [facility] Hematocrit 21.0(L) 38.5 - 50.0 % 10/28/2024 5:09 AM EDT [facility] MCV 87.8 80.0 - 100.0 fL 10/28/2024 5:09 AM EDT [facility] MCH 30.5 27.0 - 33.0 pg 10/28/2024 5:09 AM EDT [facility] MCHC 34.7 32.0 - 36.0 g/dL 10/28/2024 5:09 AM EDT [facility] RDW 18.7(H) 11.0 - 15.0 % 10/28/2024 5:09 AM EDT [facility] Platelets 38(L) 140 - 400 10E3/uL 10/28/2024 5:09 AM EDT [facility] Comment: CNV Specimen checked for clots. None detected. MPV 7.6 7.5 - 11.5 fL 10/28/2024 5:09 AM EDT [facility] Whole Blood 10/28/2024 4:13 AM EDT 10/28/2024 4:41 AM EDT Kemar Sahni MD LAB BLOOD ORDERABLES Final Result Performing Organization Address City/[facility]/ZIP Co de Phone Number [facility] [address] [facility]. [address] * (ABNORMAL) POC Glucose Monitoring Device (10/28/2024 4:04 AM EDT) POC Glucose Monitoring Device 103(H) 70 - 100 mg/dL 10/28/2024 4:05 AM EDT [facility] Blood 10/28/2024 4:04 AM EDT 10/28/2024 4:05 AM EDT Semaj Mcnair III, MD POINT OF CARE TEST ORDERABLES Final Result [facility] [address] * (ABNORMAL) POC Glucose Monitoring Device (10/28/2024 3:00 AM EDT) POC Glucose Monitoring Device 106(H) 70 - 100 mg/dL 10/28/2024 3:01 AM EDT [facility] Blood 10/28/2024 3:00 AM EDT 10/28/2024 3:01 AM EDT Semaj Mcnair III, MD POINT OF CARE TEST ORDERABLES Final Result [facility] [address] [facility]. [address] * (ABNORMAL) POC Glucose Monitoring Device (10/28/2024 2:32 AM EDT) POC Glucose Monitoring Device 109(H) 70 - 100 mg/dL 10/28/2024 2:33 AM EDT [facility] Blood 10/28/2024 2:32 AM EDT 10/28/2024 2:33 AM EDT us Semaj Mcnair III, MD POINT OF CARE TEST ORDERABLES Final Result [facility] [address] [facility]. [address] * (ABNORMAL) POC Glucose Monitoring Device (10/28/2024 2:14 AM EDT) POC Glucose Monitoring Device 115(H) 70 - 100 mg/dL 10/28/2024 2:15 AM EDT [facility] Blood 10/28/2024 2:14 AM EDT 10/28/2024 2:15 AM EDT us Semaj Mcnair III, MD POINT OF CARE TEST ORDERABLES Final Result [facility] [address] * (ABNORMAL) POC Glucose Monitoring Device (10/28/2024 2:03 AM EDT) POC Glucose Monitoring Device 101(H) 70 - 100 mg/dL 10/28/2024 2:04 AM EDT [facility] Blood 10/28/2024 2:03 AM EDT 10/28/2024 2:04 AM EDT Semaj Mcnair III, MD POINT OF CARE TEST ORDERABLES Final Result Performing Organization Address City/[facility] Co de Phone Number [facility] [address] * Transfuse RBC Transfusion Rate: Per dept routine (10/28/2024 1:51 AM EDT) John Moreno MD NURSING TREATMENT ORDERABLES - BLOOD ADMIN Final Result Performing Organization Address City/[facility] Co de Phone Number EXTERNAL * Transfuse RBC Transfusion Rate: Per dept routine, 1 Units (10/28/2024 1:51 AM EDT) John Moreno MD NURSING TREATMENT ORDERABLES - BLOOD ADMIN Final Result Performing Organization Address City/[facility] de Phone Number EXTERNAL * (ABNORMAL) TEG-Bypass/ECMO/Liver HN (Factor function, Platelet/Fibrin Clot Strength w/Clot Breakdown, Heparinase In All Channels) (10/28/2024 12:05 AM EDT) Citrated Kaolin Reaction Time (TEGECMOLIVER) 7.5 4.6 - 9.1 minutes 10/28/2024 1:22 AM EDT [facility] Citrated Kaolin W/Heparinase Reaction Time (TEGECMOLIVER) 7.7 4.3 - 8.3 minutes 10/28/2024 1:22 AM EDT [facility] Citrated Kaolin Maximum Amplitude (TEGECMOLIVER) 54.4 52.0 - 69.0 mm 10/28/2024 1:22 AM EDT [facility] Citrated Functional Fibrinogen W/Heparinase Maximum Amplitude(TEGEC MOLIVER) 20.4 15.0 - 34.0 mm 10/28/2024 1:22 AM EDT [facility] Citrated Rapid Teg W/Heparinase Maximum Amplitude (TEGECMOLIVER) 51.0(L) 53.0 - 69.0 mm 10/28/2024 1:22 AM EDT [facility] Citrated Kaolin w/Heparinase Percent Lysis (TEGECMOLIVER) 0.0 0.0 - 3.2 % 10/28/2024 1:22 AM EDT [facility] Whole Blood (Citrate) 10/28/2024 12:05 AM EDT 10/28/2024 12:09 AM EDT Kemar Sahni MD LAB BLOOD ORDERABLES Final Result Performing Organization Address City/[facility] Co de Phone Number [facility] [address] [facility]. [address] * Magnesium (10/28/2024 12:05 AM EDT) Magnesium 2.2 1.5 - 2.5 mg/dL 10/28/2024 1:59 AM EDT [facility] Plasma 10/28/2024 12:0 5 AM EDT 10/28/2024 12:11 AM EDT Kemar Sahni MD LAB BLOOD ORDERABLES Final Result Performing Organization Address City/[facility]/ZIP Co de Phone Number [facility] [address] [facility] * (ABNORMAL) Renal Function Panel w/EGFR (10/28/2024 12:05 AM EDT) Sodium 144 133 - 146 mmol/L 10/28/2024 1:59 AM EDT [facility] Potassium 3.4(L) 3.5 - 5.3 mmol/L 10/28/2024 1:59 AM EDT [facility] Chloride 112(H) 98 - 110 mmol/L 10/28/2024 1:59 AM EDT [facility] CO2 19(L) 21 - 33 mmol/L 10/28/2024 1:59 AM EDT [facility] Anion Gap 13 3 - 16 mmol/L 10/28/2024 1:59 AM EDT [facility] BUN 59(H) 7 - 25 mg/dL 10/28/2024 1:59 AM EDT [facility] Creatinine 2.42(H) 0.60 - 1.30 mg/dL 10/28/2024 1:59 AM EDT [facility] Glucose 118(H) 70 - 100 mg/dL 10/28/2024 1:59 AM EDT [facility] Calcium 9.0 8.6 - 10.3 mg/dL 10/28/2024 1:59 AM EDT [facility] Phosphorus 5.3(H) 2.1 - 4.7 mg/dL 10/28/2024 1:59 AM EDT [facility] Albumin 3.1(L) 3.5 - 5.7 g/dL 10/28/2024 1:59 AM EDT [facility] Osmolality, Calculated 316(H) 278 - 305 mOsm/kg 10/28/2024 1:59 AM EDT [facility] EGFR 34 10/28/2024 1:59 AM EDT [facility] Comment:As of 2021, the [...] Sahni MD LAB BLOOD ORDERABLES Final Result [facility] [address] [facility]. [address] * (ABNORMAL) Differential (10/28/2024 12:05 AM EDT) Neutrophils Relative 88.6(H) 40.0 - 80.0 % 10/28/2024 12:41 AM EDT [facility] Lymphocytes Relative 2.5(L) 15.0 - 45.0 % 10/28/2024 12:41 AM EDT [facility] Monocytes Relative 6.1 0.0 - 12.0 % 10/28/2024 12:41 AM EDT [facility] Eosinophils Relative 2.4 0.0 - 8.0 % 10/28/2024 12:41 AM EDT [facility] Basophils Relative 0.4 0.0 - 1.0 % 10/28/2024 12:41 AM EDT [facility] nRBC 0 0 - 0 /100 WBC 10/28/2024 12:41 AM EDT [facility] Neutrophils Absolute 4,341 1,520 - 8,640 /uL 10/28/2024 12:41 AM EDT [facility] Lymphocytes Absolute 123(L) 570 - 4,860 /uL 10/28/2024 12:41 AM EDT [facility] Monocytes Absolute 299 0 - 1,296 /uL 10/28/2024 12:41 AM EDT [facility] Eosinophils Absolute 118 0 - 864 /uL 10/28/2024 12:41 AM EDT [facility] Basophils Absolute 20 0 - 108 /uL 10/28/2024 12:41 AM EDT [facility] Whole Blood 10/28/2024 12:0 5 AM EDT 10/28/2024 12:11 AM EDT Kemar Sahni MD LAB BLOOD ORDERABLES Final Result [facility] [address] * (ABNORMAL) CBC (10/28/2024 12:05 AM EDT) WBC 4.9 3.8 - 10.8 10E3/uL 10/28/2024 12:41 AM EDT [facility] RBC 2.18(L) 4.20 - 5.80 10E6/uL 10/28/2024 12:41 AM EDT [facility] Hemoglobin 6.7(L) 13.2 - 17.1 g/dL 10/28/2024 12:41 AM EDT [facility] Hematocrit 19.2(L) 38.5 - 50.0 % 10/28/2024 12:41 AM EDT [facility] MCV 87.8 80.0 - 100.0 fL 10/28/2024 12:41 AM EDT [facility] MCH 30.6 27.0 - 33.0 pg 10/28/2024 12:41 AM EDT [facility] MCHC 34.8 32.0 - 36.0 g/dL 10/28/2024 12:41 AM EDT [facility] RDW 19.6(H) 11.0 - 15.0 % 10/28/2024 12:41 AM EDT [facility] Platelets 45(L) 140 - 400 10E3/uL 10/28/2024 12:41 AM EDT [facility] Comment: CNV Specimen checked for clots. None detected. MPV 7.8 7.5 - 11.5 fL 10/28/2024 12:41 AM EDT [facility] Whole Blood 10/28/2024 12:0 5 AM EDT 10/28/2024 12:11 AM EDT Kemar Sahni MD LAB BLOOD ORDERABLES Final Result [facility] [address] [address], [facility] * (ABNORMAL) POC Glucose Monitoring Device (10/28/2024 12:03 AM EDT) POC Glucose Monitoring Device 122(H) 70 - 100 mg/dL 10/28/2024 12:04 AM EDT [facility] Blood 10/28/2024 12:0 3 AM EDT 10/28/2024 12:04 AM EDT Semaj Mcnair III, MD POINT OF CARE TEST ORDERABLES Final Result Performing Organization Address City/[facility] Co de Phone Number [facility] [address] * (ABNORMAL) POC Glucose Monitoring Device (10/27/2024 10:03 PM EDT) POC Glucose Monitoring Device 127(H) 70 - 100 mg/dL 10/27/2024 10:03 PM EDT [facility] Blood 10/27/2024 10:0 3 PM EDT 10/27/2024 10:03 PM EDT Semaj Mcnair III, MD POINT OF CARE TEST ORDERABLES Final Result Performing Organization Address [facility] Co de Phone Number [address] [facility]. [address] * (ABNORMAL) POC Glucose Monitoring Device (10/27/2024 8:06 PM EDT) POC Glucose Monitoring Device 128(H) 70 - 100 mg/dL 10/27/2024 8:45 PM EDT [facility] Blood 10/27/2024 8:06 PM EDT 10/27/2024 8:45 PM EDT Semaj Mcnair III, MD POINT OF CARE TEST ORDERABLES Final Result Performing Organization Address City/[facility] Co de Phone Number [place] [address] [address] * (ABNORMAL) POC Glucose Monitoring Device (10/27/2024 6:00 PM EDT) POC Glucose Monitoring Device 128(H) 70 - 100 mg/dL 10/27/2024 6:00 PM EDT [facility] Blood 10/27/2024 6:00 PM EDT 10/27/2024 6:00 PM EDT us Semaj Mcnair III, MD POINT OF CARE TEST ORDERABLES Final Result Performing Organization Address City/[facility]/ZIP Co de Phone Number [facility] [address] [facility] * Lactic Acid, STAT (10/27/2024 5:41 PM EDT) Lactate 0.5 0.5 - 2.2 mmol/L 10/27/2024 6:28 PM EDT [facility] Plasma 10/27/2024 5:41 PM EDT 10/27/2024 5:49 PM EDT Narrative [facility] - 10/27/2024 6:28 PM EDT Redraw us John Moreno MD LAB BLOOD ORDERABLES Final R esult Performing Organization Address [facility]/ZIP Co de Phone Number [facility] [address] [facility] * (ABNORMAL) Hepatic Function Panel, STAT (10/27/2024 5:13 PM EDT) Total Bilirubin 1.7(H) 0.0 - 1.5 mg/dL 10/27/2024 5:50 PM EDT [facility] Bilirubin, Direct 1.17(H) 0.00 - 0.40 mg/dL 10/27/2024 5:50 PM EDT [facility] AST 60(H) 13 - 39 U/L 10/27/2024 5:50 PM EDT [facility] ALT 134(H) 7 - 52 U/L 10/27/2024 5:50 PM EDT [facility] Alkaline Phosphatase 27(L) 36 - 125 U/L 10/27/2024 5:50 PM EDT [facility] Total Protein 4.1(L) 6.4 - 8.9 g/dL 10/27/2024 5:50 PM EDT [facility] Albumin 2.9(L) 3.5 - 5.7 g/dL 10/27/2024 5:50 PM EDT [facility] Bilirubin, Indirect 0.53 0.00 - 1.10 mg/dL 10/27/2024 5:50 PM EDT [facility] Plasma 10/27/2024 5:13 PM EDT 10/27/2024 5:23 PM EDT us Shay Plata MD LAB BLOOD ORDERABLES Final Result [facility] [address] * (ABNORMAL) TEG-Bypass/ECMO/Liver HN (Factor function, Platelet/Fibrin Clot Strength w/Clot Breakdown, Heparinase In All Channels) (10/27/2024 5:13 PM EDT) [facility] Citrated Kaolin Reaction Time (TEGECMOLIVER) 8.0 4.6 - 9.1 minutes 10/27/2024 6:56 PM EDT [facility] Citrated Kaolin W/Heparinase Reaction Time (TEGECMOLIVER) 6.8 4.3 - 8.3 minutes 10/27/2024 6:56 PM EDT [facility] Citrated Kaolin Maximum Amplitude (TEGECMOLIVER) 55.4 52.0 - 69.0 mm 10/27/2024 6:56 PM EDT [facility] Citrated Functional Fibrinogen W/Heparinase Maximum Amplitude(TEGEC MOLIVER) 22.9 15.0 - 34.0 mm 10/27/2024 6:56 PM EDT [facility] Citrated Rapid Teg W/Heparinase Maximum Amplitude (TEGECMOLIVER) 50.8(L) 53.0 - 69.0 mm 10/27/2024 6:56 PM EDT [facility] Citrated Kaolin w/Heparinase Percent Lysis (TEGECMOLIVER) 0.1 0.0 - 3.2 % 10/27/2024 6:56 PM EDT [facility] Whole Blood (Citrate) 10/27/2024 5:13 PM EDT 10/27/2024 5:20 PM EDT Kemar Sahni MD LAB BLOOD ORDERABLES Final Result [facility] [address] * (ABNORMAL) Protime-INR (10/27/2024 5:13 PM EDT) Pathologist [facility] Protime 15.2(H) 12.1 - 15.1 seconds 10/27/2024 5:40 PM EDT [facility] INR 1.1 0.9 - 1.1 10/27/2024 5:40 PM EDT [facility] Comment: RECOMMENDED THERAPEUTIC RANGES USING INR : Stable oral anticoagulant therapy: 2.0 - 3.0 Mechanical prosthetic heart valve: 2.5 - 3.5 Recurrent acute myocardial infarction: 2.5 - 3.5 Plasma 10/27/2024 5:13 PM EDT 10/27/2024 5:23 PM EDT Kemar Sahni MD LAB BLOOD ORDERABLES Final Result [facility] [address] [facility] * Magnesium (10/27/2024 5:13 PM EDT) [facility] Magnesium 2.4 1.5 - 2.5 mg/dL 10/27/2024 5:53 PM EDT [facility] Plasma 10/27/2024 5:13 PM EDT 10/27/2024 5:23 PM EDT Kemar Sahni MD LAB BLOOD ORDERABLES Final Result [facility] [address] [facility] * (ABNORMAL) Hepatic Function Panel (10/27/2024 5:13 PM EDT) Pathologist [facility] Total Bilirubin 1.7(H) 0.0 - 1.5 mg/dL 10/27/2024 5:53 PM EDT [facility] Bilirubin, Direct 1.10(H) 0.00 - 0.40 mg/dL 10/27/2024 5:53 PM EDT [facility] AST 62(H) 13 - 39 U/L 10/27/2024 5:53 PM EDT [facility] ALT 134(H) 7 - 52 U/L 10/27/2024 5:53 PM EDT [facility] Alkaline Phosphatase 27(L) 36 - 125 U/L 10/27/2024 5:53 PM EDT [facility] Total Protein 4.1(L) 6.4 - 8.9 g/dL 10/27/2024 5:53 PM EDT [facility] Albumin 2.9(L) 3.5 - 5.7 g/dL 10/27/2024 5:53 PM EDT [facility] Bilirubin, Indirect 0.60 0.00 - 1.10 mg/dL 10/27/2024 5:53 PM EDT [facility] Plasma 10/27/2024 5:13 PM EDT 10/27/2024 5:23 PM EDT Kemar Sahni MD LAB BLOOD ORDERABLES Final Result [facility] [address] * (ABNORMAL) Renal Function Panel w/EGFR (10/27/2024 5:13 PM EDT) Sodium 142 133 - 146 mmol/L 10/27/2024 5:53 PM EDT [facility] Potassium 3.4(L) 3.5 - 5.3 mmol/L 10/27/2024 5:53 PM EDT [facility] Chloride 109 98 - 110 mmol/L 10/27/2024 5:53 PM EDT [facility] CO2 22 21 - 33 mmol/L 10/27/2024 5:53 PM EDT [facility] Anion Gap 11 3 - 16 mmol/L 10/27/2024 5:53 PM EDT [facility] BUN 61(H) 7 - 25 mg/dL 10/27/2024 5:53 PM EDT [facility] Creatinine 2.42(H) 0.60 - 1.30 mg/dL 10/27/2024 5:53 PM EDT [facility] Glucose 125(H) 70 - 100 mg/dL 10/27/2024 5:53 PM EDT [facility] Calcium 8.8 8.6 - 10.3 mg/dL 10/27/2024 5:53 PM EDT [facility] Phosphorus 5.7(H) 2.1 - 4.7 mg/dL 10/27/2024 5:53 PM EDT [facility] Albumin 2.9(L) 3.5 - 5.7 g/dL 10/27/2024 5:53 PM EDT [facility] Osmolality, Calculated 313(H) 278 - 305 mOsm/kg 10/27/2024 5:53 PM EDT [facility] EGFR 34 10/27/2024 5:53 PM EDT [facility] Comment:As of 2021, the [...] Sahni MD LAB BLOOD ORDERABLES Final Result [facility] [address] [place] [address], [facility] * (ABNORMAL) CBC (10/27/2024 5:13 PM EDT) WBC 4.9 3.8 - 10.8 10E3/uL 10/27/2024 6:14 PM EDT [facility] RBC 2.44(L) 4.20 - 5.80 10E6/uL 10/27/2024 6:14 PM EDT [facility] Hemoglobin 7.4(L) 13.2 - 17.1 g/dL 10/27/2024 6:14 PM EDT [facility] Hematocrit 21.4(L) 38.5 - 50.0 % 10/27/2024 6:14 PM EDT [facility] MCV 87.6 80.0 - 100.0 fL 10/27/2024 6:14 PM EDT [facility] MCH 30.3 27.0 - 33.0 pg 10/27/2024 6:14 PM EDT [facility] MCHC 34.6 32.0 - 36.0 g/dL 10/27/2024 6:14 PM EDT [facility] RDW 19.6(H) 11.0 - 15.0 % 10/27/2024 6:14 PM EDT [facility] Platelets 47(L) 140 - 400 10E3/uL 10/27/2024 6:14 PM EDT [facility] Comment: CNV Specimen checked for clots. None detected. MPV 8.1 7.5 - 11.5 fL 10/27/2024 6:14 PM EDT [facility] Whole Blood 10/27/2024 5:13 PM EDT 10/27/2024 5:23 PM EDT us Kemar Sahni MD LAB BLOOD ORDERABLES Final Result Performing Organization Address City/State/[facility] Co de Phone Number [facility] [address] * (ABNORMAL) POC Glucose Monitoring Device (10/27/2024 3:57 PM EDT) POC Glucose Monitoring Device 131(H) 70 - 100 mg/dL 10/27/2024 3:58 PM EDT [facility] Blood 10/27/2024 3:57 PM EDT 10/27/2024 3:58 PM EDT us Semaj Mcnair III, MD POINT OF CARE TEST ORDERABLES Final Result [facility] [address] * (ABNORMAL) CBC, STAT (10/27/2024 2:40 PM EDT) [facility] WBC 5.8 3.8 - 10.8 10E3/uL 10/27/2024 2:54 PM EDT [facility] RBC 2.43(L) 4.20 - 5.80 10E6/uL 10/27/2024 2:54 PM EDT [facility] Hemoglobin 7.5(L) 13.2 - 17.1 g/dL 10/27/2024 2:54 PM EDT [facility] Hematocrit 21.5(L) 38.5 - 50.0 % 10/27/2024 2:54 PM EDT [facility] MCV 88.2 80.0 - 100.0 fL 10/27/2024 2:54 PM EDT [facility] MCH 30.7 27.0 - 33.0 pg 10/27/2024 2:54 PM EDT [facility] MCHC 34.8 32.0 - 36.0 g/dL 10/27/2024 2:54 PM EDT [facility] RDW 19.1(H) 11.0 - 15.0 % 10/27/2024 2:54 PM EDT [facility] Platelets 50(L) 140 - 400 10E3/uL 10/27/2024 2:54 PM EDT [facility] MPV 7.5 7.5 - 11.5 fL 10/27/2024 2:54 PM EDT [facility] Whole Blood 10/27/2024 2:40 PM EDT 10/27/2024 2:44 PM EDT us John Moreno MD LAB BLOOD ORDERABLES Final R esult [facility] [address] * (ABNORMAL) Blood Gas, Arterial, STAT (10/27/2024 2:40 PM EDT) O2 Sat, Arterial 98 10/27/2024 2:46 PM EDT [facility] FIO2 RA 10/27/2024 2:46 PM EDT [facility] pH, Arterial 7.37 7.35 - 7.45 10/27/2024 2:46 PM EDT [facility] pCO2, Arterial 35 35 - 45 mm Hg 10/27/2024 2:46 PM EDT [facility] pO2, Arterial 92 80 - 100 mm Hg 10/27/2024 2:46 PM EDT [facility] HCO3, Arterial 21(L) 22 - 26 mmol/L 10/27/2024 2:46 PM EDT [facility] CO2 Content,Arteri al 21(L) 23 - 27 mmol/L 10/27/2024 2:46 PM EDT [facility] Base Excess, Arterial -4.6(L) -2.0 - 3.0 mmol/L 10/27/2024 2:46 PM EDT [facility] %HBO2, Arterial 95.4 95.0 - 98.0 % 10/27/2024 2:46 PM EDT [facility] Carboxyhemoglo bin, Arterial 1.6 % 10/27/2024 2:46 PM EDT [facility] Comment: CARBOXYHEMOGLOBIN (CO) REFERENCE RANGES: Non-Smokers: <2 % Smokers: <8 % TOXIC: >20 % Methemoglobin, Arterial 1.0 0.0 - 1.5 % 10/27/2024 2:46 PM EDT [facility] Reduced hemoglobin, Arterial 2.1 0.0 - 5.0 % 10/27/2024 2:46 PM EDT [facility] Blood, Arterial 10/27/2024 2 :40 PM EDT 10/27/2024 2:44 PM EDT Narrative [facility] - 10/27/2024 2:46 PM EDT Post extubation us John Moreno MD LAB BLOOD ORDERABLES Final R esult [facility] [address] [place] [address], [facility] * (ABNORMAL) POC Glucose Monitoring Device (10/27/2024 2:06 PM EDT) [facility] POC Glucose Monitoring Device 134(H) 70 - 100 mg/dL 10/27/2024 2:06 PM EDT [facility] Blood 10/27/2024 2:06 PM EDT 10/27/2024 2:06 PM EDT Semaj Mcnair III, MD POINT OF CARE TEST ORDERABLES Final Result Performing Organization Address City/State/[facility] Co de Phone Number [facility] [address] [place] [address], [facility] * (ABNORMAL) Blood gas, arterial (10/27/2024 12:35 PM EDT) [facility] O2 Sat, Arterial 99 10/27/2024 12:46 PM EDT [facility] FIO2 SBT 30% 10/27/2024 12:46 PM EDT [facility] pH, Arterial 7.35 7.35 - 7.45 10/27/2024 12:46 PM EDT [facility] pCO2, Arterial 37 35 - 45 mm Hg 10/27/2024 12:46 PM EDT [facility] pO2, Arterial 182(H) 80 - 100 mm Hg 10/27/2024 12:46 PM EDT [facility] HCO3, Arterial 21(L) 22 - 26 mmol/L 10/27/2024 12:46 PM EDT [facility] CO2 Content,Arteri al 22(L) 23 - 27 mmol/L 10/27/2024 12:46 PM EDT [facility] Base Excess, Arterial -4.8(L) -2.0 - 3.0 mmol/L 10/27/2024 12:46 PM EDT [facility] %HBO2, Arterial 96.3 95.0 - 98.0 % 10/27/2024 12:46 PM EDT [facility] Carboxyhemoglo bin, Arterial 1.7 % 10/27/2024 12:46 PM EDT [facility] Comment: CARBOXYHEMOGLOBIN (CO) REFERENCE RANGES: Non-Smokers: <2 % Smokers: <8 % TOXIC: >20 % Methemoglobin, Arterial 1.4 0.0 - 1.5 % 10/27/2024 12:46 PM EDT [facility] Reduced hemoglobin, Arterial 0.6 0.0 - 5.0 % 10/27/2024 12:46 PM EDT [facility] Blood, Arterial 10/27/2024 1 2:35 PM EDT 10/27/2024 12:42 PM EDT Narrative [facility] - 10/27/2024 12:46 PM EDT Please obtain post SBT us Shay Sifuentes MD LAB BLOOD ORDERABLES Final Resu lt [facility] [address] [place] [address], [facility] * (ABNORMAL) TEG-Bypass/ECMO/Liver HN (Factor function, Platelet/Fibrin Clot Strength w/Clot Breakdown, Heparinase In All Channels) (10/27/2024 12:07 PM EDT) [facility] Citrated Kaolin Reaction Time (TEGECMOLIVER) 7.9 4.6 - 9.1 minutes 10/27/2024 1:24 PM EDT [facility] Citrated Kaolin W/Heparinase Reaction Time (TEGECMOLIVER) 8.3 4.3 - 8.3 minutes 10/27/2024 1:24 PM EDT [facility] Citrated Kaolin Maximum Amplitude (TEGECMOLIVER) 52.0 52.0 - 69.0 mm 10/27/2024 1:24 PM EDT [facility] Citrated Functional Fibrinogen W/Heparinase Maximum Amplitude(TEGEC MOLIVER) 20.1 15.0 - 34.0 mm 10/27/2024 1:24 PM EDT [facility] Citrated Rapid Teg W/Heparinase Maximum Amplitude (TEGECMOLIVER) 49.4(L) 53.0 - 69.0 mm 10/27/2024 1:24 PM EDT [facility] Citrated Kaolin w/Heparinase Percent Lysis (TEGECMOLIVER) 0.0 0.0 - 3.2 % 10/27/2024 1:24 PM EDT [facility] Whole Blood (Citrate) 10/27/2024 12:07 PM EDT 10/27/2024 12:09 PM EDT Kemar Sahni MD LAB BLOOD ORDERABLES Final Result Performing Organization Address [facility] Co de Phone Number [facility] [address] [facility]. [address] * (ABNORMAL) POC Glucose Monitoring Device (10/27/2024 12:01 PM EDT) POC Glucose Monitoring Device 121(H) 70 - 100 mg/dL 10/27/2024 12:02 PM EDT [facility] Blood 10/27/2024 12:0 1 PM EDT 10/27/2024 12:01 PM EDT Semaj Mcnair III, MD POINT OF CARE TEST ORDERABLES Final Result Performing Organization Address [facility] de Phone Number [facility] [address] [facility]. [address] * (ABNORMAL) POC Glucose Monitoring Device (10/27/2024 10:59 AM EDT) POC Glucose Monitoring Device 126(H) 70 - 100 mg/dL 10/27/2024 11:10 AM EDT [facility] Blood 10/27/2024 10:5 9 AM EDT 10/27/2024 11:10 AM EDT Semaj Mcnair III, MD POINT OF CARE TEST ORDERABLES Final Result Performing Organization Address [facility] Co de Phone Number [facility] [address] [facility]. [address] * ECG 12 lead (MUSE) (10/27/2024 10:17 AM EDT) 10/27/2024 10:1 7 AM EDT Narrative MUSE - 10/27/2024 2:51 PM EDT Ventricular Rate: 91 BPM Atrial Rate: 91 BPM P-R Interval: 168 ms QRS Duration: 90 ms QT: 274 ms QTc: 337 ms P Montgomery: 60 degrees R Montgomery: -30 degrees T Montgomery: -15 degrees Diagnosis Line: NORMAL SINUS RHYTHM ^ LEFT AXIS DEVIATION, LEFT ANTERIOR HEMIBLOCK ^ NONSPECIFIC T WAVE CHANGE ^ ABNORMAL ECG ^ ^ Confirmed by MD ROLLY, [facility] ([id number]) on 10/27/2024 2:51:52 PM Shay Sifuentes MD ECG ORDERABLES Final Result MUSE * (ABNORMAL) POC Glucose Monitoring Device (10/27/2024 10:00 AM EDT) [facility] Signature POC Glucose Monitoring Device 121(H) 70 - 100 mg/dL 10/27/2024 10:01 AM EDT [facility] [employer] [facility] [employer] [facility] Blood 10/27/2024 10:0 0 AM EDT 10/27/2024 10:01 AM EDT Semaj Mcnair III, MD POINT OF CARE TEST ORDERABLES Final Result Performing Organization Address City/[facility] Co de Phone Number [facility] [address] * US Renal Transplant (10/27/2024 9:51 [...] US ORDERABLES Final Result * US Duplex Bpz-Ldt-Qhzqgjs Comp (10/27/2024 9:51 AM EDT) Anatomical Region [...] EXAM: US ABDOMEN LIMITED EXAM: US DUPLEX [id number] COMPLETE INDICATION: Post-op liver transplant COMPARISON: None [...] absent.. Pancreas: Obscured by overlying bowel gas. [place] right kidney: 12.5 cm in length. Normal [...] EXAM: US ABDOMEN LIMITED EXAM: US DUPLEX [id number] COMPLETE INDICATION: Post-op liver transplant COMPARISON: None [...] absent.. Pancreas: Obscured by overlying bowel gas. [place] right kidney: 12.5 cm in length. Normal [...] EXAM: US ABDOMEN LIMITED EXAM: US DUPLEX [id number] COMPLETE INDICATION: Post-op liver transplant COMPARISON: None [...] absent.. Pancreas: Obscured by overlying bowel gas. [place] right kidney: 12.5 cm in length. Normal [...] EXAM: US ABDOMEN LIMITED EXAM: US DUPLEX [id number] COMPLETE INDICATION: Post-op liver transplant COMPARISON: None [...] absent.. Pancreas: Obscured by overlying bowel gas. [place] right kidney: 12.5 cm in length. Normal [...] - 100 mg/dL 10/27/2024 9:06 AM EDT [facility] [employer] [facility] [employer] [facility] Blood 10/27/2024 9:05 AM EDT 10/27/2024 9:06 AM EDT us Semaj Mcnair III, MD POINT OF CARE TEST ORDERABLES Final Result [facility] [address] [place] [address], [facility] * X-ray Portable Chest (10/27/2024 [...] 0.9 - 1.1 10/27/2024 8:35 AM EDT [facility] Comment: RECOMMENDED THERAPEUTIC RANGES USING INR : Stable oral anticoagulant therapy: 2.0 - 3.0 Mechanical prosthetic heart valve: 2.5 - 3.5 Recurrent acute myocardial infarction: 2.5 - 3.5 Plasma 10/27/2024 8:16 AM EDT 10/27/2024 8:20 AM EDT John Moreno MD LAB BLOOD ORDERABLES Final R esult [facility] [address] * Magnesium (10/27/2024 8:00 AM EDT) Magnesium 1.8 1.5 - 2.5 mg/dL 10/27/2024 10:50 AM EDT [facility] Plasma 10/27/2024 8:00 AM EDT 10/27/2024 10:31 AM EDT Kemar Sahni MD LAB BLOOD ORDERABLES Final Result Performing Organization Address [facility]/ZIP Co de Phone Number [facility] [address] * (ABNORMAL) Renal Function Panel w/EGFR (10/27/2024 8:00 AM EDT) Sodium 142 133 - 146 mmol/L 10/27/2024 10:18 AM EDT [facility] Potassium 3.0(L) 3.5 - 5.3 mmol/L 10/27/2024 10:18 AM EDT [facility] Chloride 109 98 - 110 mmol/L 10/27/2024 10:18 AM EDT [facility] CO2 21 21 - 33 mmol/L 10/27/2024 10:18 AM EDT [facility] Anion Gap 12 3 - 16 mmol/L 10/27/2024 10:18 AM EDT [facility] BUN 59(H) 7 - 25 mg/dL 10/27/2024 10:18 AM EDT [facility] Creatinine 2.54(H) 0.60 - 1.30 mg/dL 10/27/2024 10:18 AM EDT [facility] Glucose 111(H) 70 - 100 mg/dL 10/27/2024 10:18 AM EDT [facility] Calcium 9.1 8.6 - 10.3 mg/dL 10/27/2024 10:18 AM EDT [facility] Phosphorus 5.5(H) 2.1 - 4.7 mg/dL 10/27/2024 10:18 AM EDT [facility] Albumin 3.0(L) 3.5 - 5.7 g/dL 10/27/2024 10:18 AM EDT [facility] Osmolality, Calculated 311(H) 278 - 305 mOsm/kg 10/27/2024 10:18 AM EDT [facility] EGFR 32 10/27/2024 10:18 AM EDT [facility] Comment:As of 2021, the [...] BLOOD ORDERABLES Final Result Performing Organization Address City/State/[facility] Co de Phone Number [facility] [address] [place], [place] [address] * (ABNORMAL) Hepatic Function Panel, STAT (10/27/2024 8:00 AM EDT) Total Bilirubin 1.3 0.0 - 1.5 mg/dL 10/27/2024 8:51 AM EDT [facility] Bilirubin, Direct 0.93(H) 0.00 - 0.40 mg/dL 10/27/2024 8:51 AM EDT [facility] AST 88(H) 13 - 39 U/L 10/27/2024 8:51 AM EDT [facility] ALT 149(H) 7 - 52 U/L 10/27/2024 8:51 AM EDT [facility] Alkaline Phosphatase 26(L) 36 - 125 U/L 10/27/2024 8:51 AM EDT [facility] Total Protein 4.0(L) 6.4 - 8.9 g/dL 10/27/2024 8:51 AM EDT [facility] Albumin 3.0(L) 3.5 - 5.7 g/dL 10/27/2024 8:51 AM EDT [facility] Bilirubin, Indirect 0.37 0.00 - 1.10 mg/dL 10/27/2024 8:51 AM EDT [facility] Plasma 10/27/2024 8:00 AM EDT 10/27/2024 8:20 AM EDT Semaj Mcnair III, MD LAB BLOOD ORDERABLE S Final Result Performing Organization Address [facility]/ZIP Co de Phone Number [facility] [address] [place] [address] * (ABNORMAL) Lactic Acid, STAT (10/27/2024 8:00 AM EDT) Lactate 0.4(L) 0.5 - 2.2 mmol/L 10/27/2024 8:43 AM EDT [facility] Plasma 10/27/2024 8:00 AM EDT 10/27/2024 8:20 AM EDT Semaj Mcnair III, MD LAB BLOOD ORDERABLE S Final Result [facility] [address] * (ABNORMAL) Blood Gas, Arterial, STAT (10/27/2024 8:00 AM EDT) O2 Sat, Arterial 100 10/27/2024 8:23 AM EDT [facility] pH, Arterial 7.36 7.35 - 7.45 10/27/2024 8:23 AM EDT [facility] pCO2, Arterial 37 35 - 45 mm Hg 10/27/2024 8:23 AM EDT [facility] pO2, Arterial 245(H) 80 - 100 mm Hg 10/27/2024 8:23 AM EDT [facility] HCO3, Arterial 22 22 - 26 mmol/L 10/27/2024 8:23 AM EDT [facility] CO2 Content,Arteri al 22(L) 23 - 27 mmol/L 10/27/2024 8:23 AM EDT [facility] Base Excess, Arterial -4.2(L) -2.0 - 3.0 mmol/L 10/27/2024 8:23 AM EDT [facility] %HBO2, Arterial 96.5 95.0 - 98.0 % 10/27/2024 8:23 AM EDT [facility] Carboxyhemoglo bin, Arterial 2.2 % 10/27/2024 8:23 AM EDT [facility] Comment: CARBOXYHEMOGLOBIN (CO) REFERENCE RANGES: Non-Smokers: <2 % Smokers: <8 % TOXIC: >20 % Methemoglobin, Arterial 1.2 0.0 - 1.5 % 10/27/2024 8:23 AM EDT [facility] Reduced hemoglobin, Arterial 0.0 0.0 - 5.0 % 10/27/2024 8:23 AM EDT [facility] Blood, Arterial 10/27/2024 8 :00 AM EDT 10/27/2024 8:19 AM EDT Narrative [facility] - 10/27/2024 8:23 AM EDT Specimen is beyond 15 minutes from time of collection. Results may be compromised. Review results critically. us Kemar Sahni MD LAB BLOOD ORDERABLES Final Result [facility] [address] [place] [address], [facility] * (ABNORMAL) TEG-Bypass/ECMO/Liver HN (Factor function, Platelet/Fibrin Clot Strength w/Clot Breakdown, Heparinase In All Channels) (10/27/2024 8:00 AM EDT) [facility] Citrated Kaolin Reaction Time (TEGECMOLIVER) 7.8 4.6 - 9.1 minutes 10/27/2024 9:39 AM EDT [facility] Citrated Kaolin W/Heparinase Reaction Time (TEGECMOLIVER) 8.0 4.3 - 8.3 minutes 10/27/2024 9:39 AM EDT [facility] Citrated Kaolin Maximum Amplitude (TEGECMOLIVER) 52.7 52.0 - 69.0 mm 10/27/2024 9:39 AM EDT [facility] Citrated Functional Fibrinogen W/Heparinase Maximum Amplitude(TEGEC MOLIVER) 19.0 15.0 - 34.0 mm 10/27/2024 9:39 AM EDT [facility] Citrated Rapid Teg W/Heparinase Maximum Amplitude (TEGECMOLIVER) 49.5(L) 53.0 - 69.0 mm 10/27/2024 9:39 AM EDT [facility] Citrated Kaolin w/Heparinase Percent Lysis (TEGECMOLIVER) 0.0 0.0 - 3.2 % 10/27/2024 9:39 AM EDT [facility] Whole Blood (Citrate) 10/27/2024 8:00 AM EDT 10/27/2024 8:19 AM EDT Kemar Sahni MD LAB BLOOD ORDERABLES Final Result [facility] [address] * (ABNORMAL) Katie-Watkins virus VCA IgG Antibody (10/27/2024 8:00 AM EDT) EBV VCA IgG Positive( A) Negative 10/27/2024 11:30 AM EDT [facility] Comment:Presence of detectab le VCA IgG antibodies. 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 EBV IGG NUM 314.00(H) 0.00 - 17.99 U/mL 10/27/2024 11:30 AM EDT [facility] Serum 10/27/2024 8:00 AM EDT 10/27/2024 8:20 AM EDT Kemar Sahni MD LAB BLOOD ORDERABLES Final Result Performing Organization Address City/[facility]/ZIP Co de Phone Number [facility] [address] * Hemoglobin A1c (10/27/2024 8:00 AM EDT) Hemoglobin A1C 5.0 4.0 - 5.6 % 10/27/2024 11:12 AM EDT [facility] Comment: Hemoglobin A1c Interpretation [...] BLOOD ORDERABLES Final Result Performing Organization Address [facility] Co de Phone Number [facility] [address] [facility]. [address] * (ABNORMAL) POC Glucose Monitoring Device (10/27/2024 7:59 AM EDT) POC Glucose Monitoring Device 113(H) 70 - 100 mg/dL 10/27/2024 7:59 AM EDT [facility] Blood 10/27/2024 7:59 AM EDT 10/27/2024 7:59 AM EDT Semaj Mcnair III, MD POINT OF CARE TEST ORDERABLES Final Result Performing Organization Address City/[facility]/ZIP Co de Phone Number [facility] [address] [facility]. [address] * X-ray Abdomen AP view (10/27/2024 [...] Units (10/27/2024 6:16 AM EDT) Product Code A6074R05 HCLL Unit Number [id number] HCLL Dispense Status Presumed Transfused_PT HCLL Blood Expiration Date [id number] HCLL Coding System ORJS956 HCLL Product Code D4068A33 HCLL Unit Number [id number] HCLL Dispense Status Presumed Transfused_PT HCLL Blood Expiration Date [id number] HCLL Coding System [id number] HCLL Blood Bank Product John Pina MD BLOOD BANK PRODUCT ORDERABLES F inal Result Performing Organization Address City/[facility]/ZIP Co de Phone Number HCLL * Prepare Platelets, leukoreduced, 1 Units (10/27/2024 6:16 AM EDT) Product Code T3089K77 HCLL Unit Number [id number] [facility]LL Dispense Status Presumed Transfused_PT HCLL Blood Expiration Date 848609521376 HCLL Coding System UESP768 [facility]LL Blood Bank Product Eber Quinones MD BLOOD BANK PRODUCT ORDER PAL Final Result Performing Organization Address City/[facility]/ZIP Co de Phone Number HCLL * Prepare Cryoprecipitate, 1 Units (10/27/2024 6:16 AM EDT) Product Code R7310I10 HCLL Unit Number [id number] [facility]LL Dispense Status Presumed Transfused_PT HCLL Blood Expiration Date HCLL Coding System TXEE813 HCLL Product Code M1555K76 HCLL Unit Number [id number] HCLL Dispense Status Presumed Transfused_PT HCLL Blood Expiration Date HCLL Coding System ONSN668 HCLL Blood Bank Product Eber Quinones MD BLOOD BANK PRODUCT ORDER PAL Final Result HCLL * Prepare Fresh Frozen Plasma, 10 Units (10/27/2024 6:16 AM EDT) Product Code I3230I12 HCLL Unit Number [id number] HCLL Dispense Status Presumed Transfused_PT HCLL Blood Expiration Date HCLL Coding System EMOC351 HCLL Product Code T8191G58 HCLL Unit Number [id number] HCLL Dispense Status Presumed Transfused_PT HCLL Blood Expiration Date HCLL Coding System DELD050 HCLL Product Code W6625Z95 HCLL Unit Number [id number] HCLL Dispense Status Presumed Transfused_PT HCLL Blood Expiration Date HCLL Coding System EJTZ653 HCLL Product Code E3098M57 HCLL Unit Number [id number] HCLL Dispense Status Presumed Transfused_PT HCLL Blood Expiration Date 281358076041 HCLL Coding System QULG147 HCLL Product Code J9209W13 HCLL Unit Number [id number] HCLL Dispense Status Released from Crossmatch_RE HCLL Blood Expiration Date 458735956223 HCLL Coding System YNLL742 HCLL Product Code U9202H94 HCLL Unit Number [id number] HCLL Dispense Status Released from Crossmatch_RE HCLL Blood Expiration Date HCLL Coding System EQLG440 HCLL Product Code G8090N49 HCLL Unit Number [id number] HCLL Dispense Status Presumed Transfused_PT HCLL Blood Expiration Date HCLL Coding System FPBM152 HCLL Product Code V1623V09 HCLL Unit Number [id number] HCLL Dispense Status Presumed Transfused_PT HCLL Blood Expiration Date HCLL Coding System PWVL581 HCLL Product Code W7381A26 HCLL Unit Number [id number] HCLL Dispense Status Presumed Transfused_PT HCLL Blood Expiration Date 716915473850 HCLL Coding System TXVL469 HCLL Product Code Z9427H00 HCLL Unit Number [id number] HCLL Dispense Status Presumed Transfused_PT HCLL Blood Expiration Date HCLL Coding System CXKO308 HCLL Blood Bank Product us Leandra Og MD BLOOD BANK PRODUCT ORD ERABLES Final Result HCLL * Prepare Platelets, leukoreduced, 1 Units (10/27/2024 6:16 AM EDT) Product Code I9332D20 HCLL Unit Number [id number] HCLL Dispense Status Presumed Transfused_PT HCLL Blood Expiration Date 031370034349 HCLL Coding System MTGU044 HCLL Blood Bank Product us Ben Blake MD BLOOD BANK PRODUCT ORDERABLES Final Result HCLL * Prepare Fresh Frozen Plasma (10/27/2024 6:15 AM EDT) Product Code U9429S67 HCLL Unit Number [id number] HCLL Dispense Status Presumed Transfused_PT HCLL Blood Expiration Date HCLL Coding System BBVJ781 HCLL Product Code G5249S58 HCLL Unit Number [id number] HCLL Dispense Status Released from Crossmatch_RE HCLL Blood Expiration Date HCLL Coding System RNYU527 HCLL Product Code E1776S58 HCLL Unit Number [id number] HCLL Dispense Status Presumed Transfused_PT HCLL Blood Expiration Date HCLL Coding System GCVA918 HCLL Product Code E8325G50 HCLL Unit Number [id number] HCLL Dispense Status Presumed Transfused_PT HCLL Blood Expiration Date HCLL Coding System AOSQ637 HCLL Product Code X0361R54 HCLL Unit Number [id number] HCLL Dispense Status Released from Crossmatch_RE HCLL Blood Expiration Date HCLL Coding System CHYY788 HCLL us Attending Provider Unknown BLOOD BANK PRODUCT OR DERABLES Final Result Performing Organization Address City/[facility] Co de Phone Number HCLL * Prepare RBC, leukoreduced (10/27/2024 6:15 AM EDT) Product Code P1985I79 HCLL Unit Number [id number] HCLL Dispense Status Presumed Transfused_PT HCLL Blood Expiration Date HCLL Coding System BWZR605 HCLL Product Code O0063Q86 HCLL Unit Number [id number] HCLL Dispense Status Released from Crossmatch_RE HCLL Blood Expiration Date HCLL Coding System WFIZ062 HCLL Product Code J1002R88 HCLL Unit Number [id number] HCLL Dispense Status Released from Crossmatch_RE HCLL Blood Expiration Date 797945747653 HCLL Coding System HGHI311 HCLL Product Code F7064Y48 HCLL Unit Number [id number] HCLL Dispense Status Released from Crossmatch_RE HCLL Blood Expiration Date 975120571270 HCLL Coding System ZTIU994 HCLL Product Code W9447F06 HCLL Unit Number [id number] HCLL Dispense Status Released from Crossmatch_RE HCLL Blood Expiration Date 783072394351 HCLL Coding System YFLC196 HCLL us Attending Provider Unknown BLOOD BANK PRODUCT OR DERABLES Final Result HCLL * Prepare RBC, leukoreduced, 10 Units (10/27/2024 6:15 AM EDT) Product Code R4159Q33 HCLL Unit Number [id number] HCLL Dispense Status Presumed Transfused_PT HCLL Blood Expiration Date HCLL Coding System UGID039 HCLL Product Code F7544J03 HCLL Unit Number [id number] HCLL Dispense Status Presumed Transfused_PT HCLL Blood Expiration Date HCLL Coding System XLUS945 HCLL Product Code B9695C45 HCLL Unit Number [id number] HCLL Dispense Status Presumed Transfused_PT HCLL Blood Expiration Date HCLL Coding System NGVB621 HCLL Product Code L3126H00 HCLL Unit Number [id number] HCLL Dispense Status Presumed Transfused_PT HCLL Blood Expiration Date HCLL Coding System KCXZ508 HCLL Product Code X2006A74 HCLL Unit Number [id number] HCLL Dispense Status Presumed Transfused_PT HCLL Blood Expiration Date HCLL Coding System EBIS580 HCLL Product Code J4027A14 HCLL Unit Number [id number] HCLL Dispense Status Presumed Transfused_PT HCLL Blood Expiration Date 324913180581 HCLL Coding System AYPA921 HCLL Product Code M9463S72 HCLL Unit Number [id number] HCLL Dispense Status Presumed Transfused_PT HCLL Blood Expiration Date HCLL Coding System WCYJ427 HCLL Product Code T4615S46 HCLL Unit Number [id number] HCLL Dispense Status Presumed Transfused_PT HCLL Blood Expiration Date HCLL Coding System JRCG020 HCLL Product Code K2849O78 HCLL Unit Number [id number] HCLL Dispense Status Presumed Transfused_PT HCLL Blood Expiration Date HCLL Coding System OGHJ686 HCLL Product Code L9568N24 HCLL Unit Number [id number] HCLL Dispense Status Presumed Transfused_PT HCLL Blood Expiration Date 077866875753 HCLL Coding System OQCS844 HCLL Blood Bank Product Lenadra Og MD BLOOD BANK PRODUCT ORD ERABLES Final Result HCLL * Transfuse Platelets (10/27/2024 6:09 AM EDT) us Ben Blake MD NURSING TREATMENT ORDERABLES - BLOOD ADMIN Final Result * (ABNORMAL) Arterial Blood Gas Panel (10/27/2024 6:09 AM EDT) O2Sat (ABGP) 100 10/27/2024 6:17 AM EDT [facility] pH (ABGP) 7.30(L) 7.35 - 7.45 10/27/2024 6:17 AM EDT [facility] PCO2 (ABGP) 41 35 - 45 mm Hg 10/27/2024 6:17 AM EDT [facility] PO2 (ABGP) 192(H) 80 - 100 mm Hg 10/27/2024 6:17 AM EDT [facility] HCO3 (ABGP) 21(L) 22 - 26 mmol/L 10/27/2024 6:17 AM EDT [facility] CO2 Content (ABGP) 22(L) 23 - 27 mmol/L 10/27/2024 6:17 AM EDT [facility] Base Excess (ABGP) -5.7(L) -2.0 - 3.0 mmol/L 10/27/2024 6:17 AM EDT [facility] Sodium (ABGP) 138 136 - 146 mEq/L 10/27/2024 6:17 AM EDT [facility] Potassium (ABGP) 3.3(L) 3.5 - 5.0 mEq/L 10/27/2024 6:17 AM EDT [facility] Comment:In the event of in-v itro hemolysis, potassium results may be falsely elevated. Always interpret lab results in conjunction with clinical findings. If hemolysis is suspected, a serum sample may be collected for repeat assessment of potassium. Calcium, Free (ABGP) 5.28 4.50 - 5.30 mg/dL 10/27/2024 6:17 AM EDT [facility] Glucose (ABGP) 112(H) 70 - 100 mg/dL 10/27/2024 6:17 AM EDT [facility] Comment:There is interferenc e with whole blood glucose results on this method when Hematocrit is <25% or >60%. HCT (ABGP) 20.0(L) 40.0 - 52.0 % 10/27/2024 6:17 AM EDT [facility] HGB (ABGP) 6.5(L) 14.0 - 18.0 g/dL 10/27/2024 6:17 AM EDT [facility] %HBO2 (ABGP) 96.8 95.0 - 98.0 % 10/27/2024 6:17 AM EDT [facility] Carboxyhgb (ABGP) 2.1 % 025 6:17 AM EDT [facility] Comment: CARBOXYHEMOGLOBIN (CO) REFERENCE RANGES: Non-Smokers: <2 % Smokers: <8 % TOXIC: >20 % Methemoglobin (ABGP) 1.0 0.0 - 1.5 % 10/27/2024 6:17 AM EDT [facility] Reduced Hemoglobin (ABGP) 0.2 0.0 - 5.0 % 10/27/2024 6:17 AM EDT [facility] Lactic Acid (ABGP) 0.4(L) 0.5 - 1.6 mmol/L 10/27/2024 6:17 AM EDT [facility] Blood, Arterial 10/27/2024 6 :09 AM EDT 10/27/2024 6:14 AM EDT Ben Blake MD LAB BLOOD ORDERABLES Final Re sult [facility] [address] [place], [place] [address] * Transfuse Fresh Frozen Plasma (10/27/2024 5:49 [...] - 100 mg/dL 10/27/2024 4:47 AM EDT [facility] Blood 10/27/2024 4:46 AM EDT 10/27/2024 4:47 AM EDT Result [facility] Semaj Mcnair III, MD POINT OF CARE TEST ORDERABLES Final Result Performing Organization Address City/State/[facility] Co de Phone Number [facility] [address] * Transfuse Platelets (10/27/2024 4:24 AM EDT) Result [facility] Ben Blake MD NURSING TREATMENT ORDERABLES - BLOOD ADMIN Final Result * Transfuse Fresh Frozen Plasma (10/27/2024 4:07 AM EDT) Result [facility] Ben Blake MD NURSING TREATMENT ORDERABLES - BLOOD ADMIN Final Result * Transfuse RBC (10/27/2024 3:52 AM EDT) Result [facility] Ben Blake MD NURSING TREATMENT ORDERABLES - BLOOD ADMIN Final Result * (ABNORMAL) Arterial Blood Gas Panel (10/27/2024 3:07 AM EDT) O2Sat (ABGP) 100 10/27/2024 3:21 AM EDT [facility] pH (ABGP) 7.32(L) 7.35 - 7.45 10/27/2024 3:21 AM EDT [facility] PCO2 (ABGP) 38 35 - 45 mm Hg 10/27/2024 3:21 AM EDT [facility] PO2 (ABGP) 176(H) 80 - 100 mm Hg 10/27/2024 3:21 AM T [facility] HCO3 (ABGP) 20(L) 22 - 26 mmol/L 10/27/2024 3:21 AM [facility] CO2 Content (ABGP) 21(L) 23 - 27 mmol/L 10/27/2024 3:21 AM [facility] Base Excess (ABGP) -6.0(L) -2.0 - 3.0 mmol/L 10/27/2024 3:21 AM [facility] Sodium (ABGP) 138 136 - 146 mEq/L 10/27/2024 3:21 AM [facility] Potassium (ABGP) 3.0(L) 3.5 - 5.0 mEq/L 10/27/2024 3:21 AM [facility] Comment:In the event of in-v itro hemolysis, potassium results may be falsely elevated. Always interpret lab results in conjunction with clinical findings. If hemolysis is suspected, a serum sample may be collected for repeat assessment of potassium. Calcium, Free (ABGP) 5.28 4.50 - 5.30 mg/dL 10/27/2024 3:21 AM [facility] Glucose (ABGP) 108(H) 70 - 100 mg/dL 10/27/2024 3:21 AM [facility] Comment:There is interferenc e with whole blood glucose results on this method when Hematocrit is <25% or >60%. HCT (ABGP) 22.0(L) 40.0 - 52.0 % 10/27/2024 3:21 AM [facility] HGB (ABGP) 7.3(L) 14.0 - 18.0 g/dL 10/27/2024 3:21 AM [facility] %HBO2 (ABGP) 97.3 95.0 - 98.0 % 10/27/2024 3:21 AM [facility] Carboxyhgb (ABGP) 1.9 % 025 3:21 AM [facility] Comment: CARBOXYHEMOGLOBIN (CO) REFERENCE RANGES: Non-Smokers: <2 % Smokers: <8 % TOXIC: >20 % Methemoglobin (ABGP) 0.8 0.0 - 1.5 % 10/27/2024 3:21 AM EDT [facility] Reduced Hemoglobin (ABGP) 0.0 0.0 - 5.0 % 10/27/2024 3:21 AM EDT [facility] Lactic Acid (ABGP) 0.3(L) 0.5 - 1.6 mmol/L 10/27/2024 3:21 AM EDT [facility] Blood, Arterial 10/27/2024 3 :07 AM EDT 10/27/2024 3:14 AM EDT us Ben Blake MD LAB BLOOD ORDERABLES Final Re sult [facility] [address] [facility] [place] [address], [facility] * Surgical Pathology Exam (10/27/2024 2:38 AM EDT) Tissue LEFT KIDNEY STRUCTURE / Unknown 10/27/2024 2:38 AM EDT Narrative [facility] - 10/27/2024 12:00 AM EDT CASE: [id number] PATIENT: BLAIR GILBERT Clinical History: Transplant kidney with bile duct reconstruction Pre-Operative Diagnosis: Acute kidney injury superimposed on CKD Post-Operative Diagnosis: None Given Specimen(s) Submitted: A. baseline renal biopsy ; B. right lobe liver biopsy; C. left lobe liver biopsy CPT Code(s): 95441 X 1; 86706 X 2; 59970 X 4 Additional Information: FINAL DIAGNOSIS: A. [...] Pathologist signing this report is located at [facility], [address] [place] [address], [facility], , CLIA ID: [id number] ADDENDUM: A. Kidney, allograft, baseline, wedge biopsy: [...] Pathologist signing this report is located at [facility], [address] [place] [address], [place], [place], [facility], , CLIA ID: [id number] us Kemar Sahni MD PATHOLOGY/CYTOLOGY ORDERABL ES Edited Result - Final [facility] * Anaerobic culture (10/27/2024 2:15 AM EDT) Culture Result No Anaerobes Isolated in 5 Days [facility] Fluid SPECIMEN FROM KIDNEY / Unknown 10/27/2024 2:15 AM EDT 10/27/2024 4:24 AM EDT Narrative [facility] - 10/31/2024 11:43 AM EDT 1) perfusate us Semaj Mcnair III, MD MICROBIOLOGY - GENE RAL ORDERABLES Final Result Performing Organization Address [facility] Co de Phone Number [facility] [address] [place] [address] * Routine Culture plus Stain (10/27/2024 2:15 AM EDT) Gram Stain Result No Polymorphonuclear Leukocytes Seen [facility] Gram Stain Result No Organisms Seen; [facility] Culture Result No Growth After 3 Days [facility] Fluid SPECIMEN FROM KIDNEY / Unknown 10/27/2024 2:15 AM EDT 10/27/2024 4:24 AM EDT Narrative [facility] - 10/30/2024 9:26 AM EDT 1) perfusate us Semaj Mcnair III, MD MICROBIOLOGY - GENE RAL ORDERABLES Final Result Performing Organization Address City/[facility]/ZIP Co de Phone Number [facility] [address] [place] [address] * Transfuse Platelets Transfusion Rate: Per dept [...] a Baseline TEG) (10/27/2024 1:51 AM EDT) [facility] Citrated Kaolin Reaction Time (TEGHEPARINASE) 10.6(H) 4.6 - 9.1 minutes 10/27/2024 2:44 AM EDT [facility] Citrated Rapid Teg Maximum Amplitude (TEGHEPARINASE) 42.3(L) 52.0 - 70.0 mm 10/27/2024 2:44 AM EDT [facility] Citrated Functional Fibrinogen Maximum Amplitude (TEGHEPARINASE) 15.0 15.0 - 32.0 mm 10/27/2024 2:44 AM EDT [facility] Citrated Kaolin W/Heparinase Reaction Time (TEGHEPARINASE) 10.5(H) 4.3 - 8.3 minutes 10/27/2024 2:44 AM EDT [facility] Citrated Kaolin K-Time (TEGHEPARINASE) 2.9(A) 0.8 - 2.1 minutes 10/27/2024 2:44 AM EDT [facility] Citrated Kaolin Angle (TEGHEPARINASE) 60.4(A) 63.0 - 78.0 degrees 10/27/2024 2:44 AM EDT [facility] Citrated Kaolin Maximum Amplitude (TEGHEPARINASE) 42.9(L) 52.0 - 69.0 mm 10/27/2024 2:44 AM EDT [facility] Citrated Functional Fibrinogen- Fibrinogen Level (TEGHEPARINASE) 273.7(L) 278.0 - 581.0 mg/dL 10/27/2024 2:44 AM EDT [facility] Whole Blood (Citrate) 10/27/2024 1:51 AM EDT 10/27/2024 2:03 AM EDT us John Pina MD LAB BLOOD ORDERABLES Final Resu lt Performing Organization Address City/[facility] Co de Phone Number [facility] [address] [facility] * (ABNORMAL) POC Glucose Monitoring Device (10/27/2024 1:50 AM EDT) POC Glucose Monitoring Device 121(H) 70 - 100 mg/dL 10/27/2024 1:51 AM EDT [facility] Blood 10/27/2024 1:5 0 AM EDT 10/27/2024 1:51 AM EDT us Semaj Mcnair III, MD POINT OF CARE TEST ORDERABLES Final Result Performing Organization Address [facility] Co de Phone Number [facility] [address] [facility] * Transfuse Cryoprecipitate Transfusion Rate: Per dept routine (10/27/2024 1:25 AM EDT) us John Pina MD NURSING TREATMENT ORDERABLES - BLOOD ADMIN Final Result Performing Organization Address [facility] Co de Phone Number EXTERNAL * Transfuse Cryoprecipitate Transfusion Rate: Per dept routine, 1 Units (10/27/2024 1:25 AM EDT) us John Pina MD NURSING TREATMENT ORDERABLES - BLOOD ADMIN Final Result Performing Organization Address City/[facility] Co de Phone Number EXTERNAL * (ABNORMAL) POC Glucose Monitoring Device (10/27/2024 1:21 AM EDT) POC Glucose Monitoring Device 123(H) 70 - 100 mg/dL 10/27/2024 1:22 AM EDT [facility] Blood 10/27/2024 1:21 AM EDT 10/27/2024 1:21 AM EDT us Semaj Mcnair III, MD POINT OF CARE TEST ORDERABLES Final Result Performing Organization Address [facility] Co de Phone Number [facility] [address] * Transfuse Fresh Frozen Plasma Transfusion Rate: Per dept routine (10/27/2024 1:03 AM EDT) us John Pina MD NURSING TREATMENT ORDERABLES - BLOOD ADMIN Final Result Performing Organization Address [facility] de Phone Number EXTERNAL * Transfuse Fresh Frozen Plasma Transfusion Rate: Per dept routine, 1 Units (10/27/2024 1:03 AM EDT) us John Pina MD NURSING TREATMENT ORDERABLES - BLOOD ADMIN Final Result Performing Organization Address [facility] de Phone Number EXTERNAL * Calcium Free, Serum (10/27/2024 12:13 AM EDT) Free Calcium, Ser 5.20 4.40 - 5.40 mg/dL 10/27/2024 12:37 AM EDT [facility] Comment:Free calcium levels vary inversely with pH by approximately 5% for each 0.1 unit of pH change. Assay results have been normalized to pH = 7.40. Serum 10/27/2024 12:1 3 AM EDT 10/27/2024 12:29 AM EDT Narrative [facility] - 10/27/2024 12:37 AM EDT This test has been developed and its performance characteristics determined by [facility] which is certified under [...] ORDERABLES Final Resu lt Performing Organization Address [facility] Co de Phone Number [facility] [address] * (ABNORMAL) Blood Gas, Arterial, STAT (10/27/2024 12:13 AM EDT) O2 Sat, Arterial 100 10/27/2024 12:23 AM EDT [facility] FIO2 30 10/27/2024 12:23 AM EDT [facility] pH, Arterial 7.32(L) 7.35 - 7.45 10/27/2024 12:23 AM EDT [facility] pCO2, Arterial 37 35 - 45 mm Hg 10/27/2024 12:23 AM EDT [facility] pO2, Arterial 137(H) 80 - 100 mm Hg 10/27/2024 12:23 AM EDT [facility] HCO3, Arterial 20(L) 22 - 26 mmol/L 10/27/2024 12:23 AM EDT [facility] CO2 Content,Arteri al 20(L) 23 - 27 mmol/L 10/27/2024 12:23 AM EDT [facility] Base Excess, Arterial -6.4(L) -2.0 - 3.0 mmol/L 10/27/2024 12:23 AM EDT [facility] %HBO2, Arterial 96.2 95.0 - 98.0 % 10/27/2024 12:23 AM EDT [facility] Carboxyhemoglo bin, Arterial 1.9 % 10/27/2024 12:23 AM EDT [facility] Comment: CARBOXYHEMOGLOBIN (CO) REFERENCE RANGES: Non-Smokers: <2 % Smokers: <8 % TOXIC: >20 % Methemoglobin, Arterial 1.5 0.0 - 1.5 % 10/27/2024 12:23 AM EDT [facility] Reduced hemoglobin, Arterial 0.4 0.0 - 5.0 % 10/27/2024 12:23 AM EDT [facility] Blood, Arterial 10/27/2024 1 2:13 AM EDT 10/27/2024 12:18 AM EDT us John Pina MD LAB BLOOD ORDERABLES Final Resu lt [facility] [address] [place] [address], [facility] * (ABNORMAL) TEG-Bypass/ECMO/Liver HN (Factor function, Platelet/Fibrin Clot Strength w/Clot Breakdown, Heparinase In All Channels) (10/27/2024 12:13 AM EDT) Citrated Kaolin Reaction Time (TEGECMOLIVER) 9.1 4.6 - 9.1 minutes 10/27/2024 1:43 AM EDT [facility] Citrated Kaolin W/Heparinase Reaction Time (TEGECMOLIVER) 9.7(H) 4.3 - 8.3 minutes 10/27/2024 1:43 AM EDT [facility] Citrated Kaolin Maximum Amplitude (TEGECMOLIVER) <40.0(L) 52.0 - 69.0 mm 10/27/2024 1:43 AM EDT [facility] Citrated Functional Fibrinogen W/Heparinase Maximum Amplitude(TEGEC MOLIVER) 11.9(L) 15.0 - 34.0 mm 10/27/2024 1:43 AM EDT [facility] Citrated Rapid Teg W/Heparinase Maximum Amplitude (TEGECMOLIVER) 31.6(L) 53.0 - 69.0 mm 10/27/2024 1:43 AM EDT [facility] Citrated Kaolin w/Heparinase Percent Lysis (TEGECMOLIVER) 0.0 0.0 - 3.2 % 10/27/2024 1:43 AM EDT [facility] Whole Blood (Citrate) 10/27/2024 12:13 AM EDT 10/27/2024 12:18 AM EDT Kemar Sahni MD LAB BLOOD ORDERABLES Final Result Performing Organization Address City/State/[facility] Co de Phone Number [facility] [address] * (ABNORMAL) Lactic Acid (10/27/2024 12:13 AM EDT) Lactate 0.2(L) 0.5 - 2.2 mmol/L 10/27/2024 12:59 AM EDT [facility] Plasma 10/27/2024 12:1 3 AM EDT 10/27/2024 12:31 AM EDT Kemar Sahni MD LAB BLOOD ORDERABLES Final Result [facility] [address] [facility]. [address] * Magnesium (10/27/2024 12:13 AM EDT) Magnesium 1.8 1.5 - 2.5 mg/dL 10/27/2024 12:52 AM EDT [facility] Plasma 10/27/2024 12:1 3 AM EDT 10/27/2024 12:29 AM EDT Kemar Sahni MD LAB BLOOD ORDERABLES Final Result Performing Organization Address City/State/[facility] Co de Phone Number [facility] [address] [facility]. [address] * (ABNORMAL) Hepatic Function Panel (10/27/2024 12:13 AM EDT) Total Bilirubin 1.6(H) 0.0 - 1.5 mg/dL 10/27/2024 12:52 AM EDT [facility] Bilirubin, Direct 1.17(H) 0.00 - 0.40 mg/dL 10/27/2024 12:52 AM EDT [facility] AST 157(H) 13 - 39 U/L 10/27/2024 12:52 AM EDT [facility] ALT 261(H) 7 - 52 U/L 10/27/2024 12:52 AM EDT [facility] Alkaline Phosphatase 26(L) 36 - 125 U/L 10/27/2024 12:52 AM EDT [facility] Total Protein 3.8(L) 6.4 - 8.9 g/dL 10/27/2024 12:52 AM EDT [facility] Albumin 2.8(L) 3.5 - 5.7 g/dL 10/27/2024 12:52 AM EDT [facility] Bilirubin, Indirect 0.43 0.00 - 1.10 mg/dL 10/27/2024 12:52 AM EDT [facility] Plasma 10/27/2024 12:1 3 AM EDT 10/27/2024 12:29 AM EDT Kemar Sahni MD LAB BLOOD ORDERABLES Final Result Performing Organization Address [facility] Co de Phone Number [facility] [address] * (ABNORMAL) Protime-INR (10/27/2024 12:13 AM EDT) Protime 18.6(H) 12.1 - 15.1 seconds 10/27/2024 12:43 AM EDT [facility] INR 1.5(H) 0.9 - 1.1 10/27/2024 12:43 AM EDT [facility] Comment: RECOMMENDED THERAPEUTIC RANGES USING INR : Stable oral anticoagulant therapy: 2.0 - 3.0 Mechanical prosthetic heart valve: 2.5 - 3.5 Recurrent acute myocardial infarction: 2.5 - 3.5 Plasma 10/27/2024 12:1 3 AM EDT 10/27/2024 12:29 AM EDT Kemar Sahni MD LAB BLOOD ORDERABLES Final Result Performing Organization Address [facility] de Phone Number [facility] [address] [facility] * (ABNORMAL) CBC (10/27/2024 12:13 AM EDT) WBC 5.0 3.8 - 10.8 10E3/uL 10/27/2024 12:59 AM EDT [facility] RBC 2.70(L) 4.20 - 5.80 10E6/uL 10/27/2024 12:59 AM EDT [facility] Hemoglobin 8.5(L) 13.2 - 17.1 g/dL 10/27/2024 12:59 AM EDT [facility] Hematocrit 23.9(L) 38.5 - 50.0 % 10/27/2024 12:59 AM EDT [facility] MCV 88.5 80.0 - 100.0 fL 10/27/2024 12:59 AM EDT [facility] MCH 31.5 27.0 - 33.0 pg 10/27/2024 12:59 AM EDT [facility] MCHC 35.6 32.0 - 36.0 g/dL 10/27/2024 12:59 AM EDT [facility] RDW 20.6(H) 11.0 - 15.0 % 10/27/2024 12:59 AM EDT [facility] Platelets 35(L) 140 - 400 10E3/uL 10/27/2024 12:59 AM EDT [facility] Comment: CNV Specimen checked for clots. None detected. MPV 7.6 7.5 - 11.5 fL 10/27/2024 12:59 AM EDT [facility] Whole Blood 10/27/2024 12:1 3 AM EDT 10/27/2024 12:29 AM EDT Kemar Sahni MD LAB BLOOD ORDERABLES Final Result Performing Organization Address City/State/[facility] Co de Phone Number [facility] [address] * (ABNORMAL) Renal Function Panel w/EGFR (10/27/2024 12:13 AM EDT) Sodium 141 133 - 146 mmol/L 10/27/2024 12:52 AM EDT [facility] Potassium 3.2(L) 3.5 - 5.3 mmol/L 10/27/2024 12:52 AM EDT [facility] Chloride 109 98 - 110 mmol/L 10/27/2024 12:52 AM EDT [facility] CO2 21 21 - 33 mmol/L 10/27/2024 12:52 AM EDT [facility] Anion Gap 11 3 - 16 mmol/L 10/27/2024 12:52 AM EDT [facility] BUN 64(H) 7 - 25 mg/dL 10/27/2024 12:52 AM EDT [facility] Creatinine 2.58(H) 0.60 - 1.30 mg/dL 10/27/2024 12:52 AM EDT [facility] Glucose 126(H) 70 - 100 mg/dL 10/27/2024 12:52 AM EDT [facility] Calcium 8.9 8.6 - 10.3 mg/dL 10/27/2024 12:52 AM EDT [facility] Phosphorus 5.3(H) 2.1 - 4.7 mg/dL 10/27/2024 12:52 AM EDT [facility] Albumin 2.8(L) 3.5 - 5.7 g/dL 10/27/2024 12:52 AM EDT [facility] Osmolality, Calculated 312(H) 278 - 305 mOsm/kg 10/27/2024 12:52 AM EDT [facility] EGFR 31 10/27/2024 12:52 AM EDT [facility] Comment:As of 2021, the [...] Sahni MD LAB BLOOD ORDERABLES Final Result [facility] [address] [place] [address], [facility] * (ABNORMAL) POC Glucose Monitoring Device (10/27/2024 12:08 AM EDT) POC Glucose Monitoring Device 121(H) 70 - 100 mg/dL 10/27/2024 12:08 AM EDT [facility] Blood 10/27/2024 12:0 8 AM EDT 10/27/2024 12:08 AM EDT Semaj Mcnair III, MD POINT OF CARE TEST ORDERABLES Final Result [facility] [address] [facility]. [address] * (ABNORMAL) POC Glucose Monitoring Device (10/26/2024 11:15 PM EDT) [facility] POC Glucose Monitoring Device 120(H) 70 - 100 mg/dL 10/26/2024 11:15 PM EDT [facility] Blood 10/26/2024 11:1 5 PM EDT 10/26/2024 11:15 PM EDT Semaj Mcnair III, MD POINT OF CARE TEST ORDERABLES Final Result Performing Organization Address [facility] Co de Phone Number [facility] [address] * (ABNORMAL) TEG-Bypass/ECMO/Liver HN (Factor function, Platelet/Fibrin Clot Strength w/Clot Breakdown, Heparinase In All Channels) (10/26/2024 10:36 PM EDT) Citrated Kaolin Reaction Time (TEGECMOLIVER) 10.0(H) 4.6 - 9.1 minutes 10/26/2024 11:53 PM EDT [facility] Citrated Kaolin W/Heparinase Reaction Time (TEGECMOLIVER) 10.2(H) 4.3 - 8.3 minutes 10/26/2024 11:53 PM EDT [facility] Citrated Kaolin Maximum Amplitude (TEGECMOLIVER) <40.0(L) 52.0 - 69.0 mm 10/26/2024 11:53 PM EDT [facility] Citrated Functional Fibrinogen W/Heparinase Maximum Amplitude(TEGEC MOLIVER) 11.3(L) 15.0 - 34.0 mm 10/26/2024 11:53 PM EDT [facility] Citrated Rapid Teg W/Heparinase Maximum Amplitude (TEGECMOLIVER) 41.8(L) 53.0 - 69.0 mm 10/26/2024 11:53 PM EDT [facility] Citrated Kaolin w/Heparinase Percent Lysis (TEGECMOLIVER) 0.0 0.0 - 3.2 % 10/26/2024 11:53 PM EDT [facility] Whole Blood (Citrate) 10/26/2024 10:36 PM EDT 10/26/2024 10:43 PM EDT Kemar Sahni MD LAB BLOOD ORDERABLES Final Result [facility] [address] [facility] * (ABNORMAL) POC Glucose Monitoring Device (10/26/2024 10:14 PM EDT) POC Glucose Monitoring Device 124(H) 70 - 100 mg/dL 10/26/2024 11:11 PM EDT [facility] Blood 10/26/2024 10:1 4 PM EDT 10/26/2024 11:11 PM EDT Semaj Mcnair III, MD POINT OF CARE TEST ORDERABLES Final Result Performing Organization Address [facility] Co de Phone Number [facility] [address] [facility] * (ABNORMAL) POC Glucose Monitoring Device (10/26/2024 9:16 PM EDT) POC Glucose Monitoring Device 119(H) 70 - 100 mg/dL 10/26/2024 9:18 PM EDT [facility] Blood 10/26/2024 9:16 PM EDT 10/26/2024 9:18 PM EDT Semaj Mcnair III, MD POINT OF CARE TEST ORDERABLES Final Result Performing Organization Address City/[facility]/ZIP Co de Phone Number [facility] [address] [facility] * (ABNORMAL) POC Glucose Monitoring Device (10/26/2024 8:05 PM EDT) POC Glucose Monitoring Device 113(H) 70 - 100 mg/dL 10/26/2024 8:06 PM EDT [facility] Blood 10/26/2024 8:05 PM EDT 10/26/2024 8:06 PM EDT Semaj Mcnair III, MD POINT OF CARE TEST ORDERABLES Final Result Performing Organization Address [facility] Co de Phone Number [facility] [address] * (ABNORMAL) POC Glucose Monitoring Device (10/26/2024 7:02 PM EDT) POC Glucose Monitoring Device 111(H) 70 - 100 mg/dL 10/26/2024 7:03 PM EDT [facility] Blood 10/26/2024 7:02 PM EDT 10/26/2024 7:03 PM EDT Semaj Mcnair III, MD POINT OF CARE TEST ORDERABLES Final Result Performing Organization Address [facility] Co de Phone Number [facility] [address] * Transfuse Cryoprecipitate Transfusion Rate: Per dept routine (10/26/2024 6:39 PM EDT) John Pina MD NURSING TREATMENT ORDERABLES - BLOOD ADMIN Final Result Performing Organization Address [facility] Co de Phone Number EXTERNAL * Transfuse Cryoprecipitate Transfusion Rate: Per dept routine, 1 Units (10/26/2024 6:39 PM EDT) John Pina MD NURSING TREATMENT ORDERABLES - BLOOD ADMIN Final Result Performing Organization Address [facility] Co de Phone Number EXTERNAL * (ABNORMAL) POC Glucose Monitoring Device (10/26/2024 6:33 PM EDT) POC Glucose Monitoring Device 110(H) 70 - 100 mg/dL 10/26/2024 6:34 PM EDT [facility] Blood 10/26/2024 6:33 PM EDT 10/26/2024 6:34 PM EDT Semaj Mcnair III, MD POINT OF CARE TEST ORDERABLES Final Result Performing Organization Address City/[facility]/ZIP Co de Phone Number [facility] [address] [facility] * Transfuse Cryoprecipitate Transfusion Rate: Per dept routine (10/26/2024 6:22 PM EDT) John Pina MD NURSING TREATMENT ORDERABLES - BLOOD ADMIN Final Result Performing Organization Address [facility] Co de Phone Number EXTERNAL * Transfuse Cryoprecipitate Transfusion Rate: Per dept routine, 1 Units (10/26/2024 6:22 PM EDT) John Pina MD NURSING TREATMENT ORDERABLES - BLOOD ADMIN Final Result Performing Organization Address City/[facility] Co de Phone Number EXTERNAL * (ABNORMAL) POC Glucose Monitoring Device (10/26/2024 6:17 PM EDT) POC Glucose Monitoring Device 104(H) 70 - 100 mg/dL 10/26/2024 6:18 PM EDT [facility] Blood 10/26/2024 6:17 PM EDT 10/26/2024 6:18 PM EDT Semaj Mcnair III, MD POINT OF CARE TEST ORDERABLES Final Result Performing Organization Address [facility] Co de Phone Number [facility] [address] [facility] * (ABNORMAL) POC Glucose Monitoring Device (10/26/2024 4:58 PM EDT) POC Glucose Monitoring Device 115(H) 70 - 100 mg/dL 10/26/2024 4:59 PM EDT [facility] Blood 10/26/2024 4:58 PM EDT 10/26/2024 4:58 PM EDT Semaj Mcnair III, MD POINT OF CARE TEST ORDERABLES Final Result Performing Organization Address [facility] Co de Phone Number [facility] [address] [place] [address] * (ABNORMAL) Calcium Free, Serum (10/26/2024 4:42 PM EDT) Free Calcium, Ser 5.67(H) 4.40 - 5.40 mg/dL 10/26/2024 4:55 PM EDT [facility] Comment:Free calcium levels vary inversely with pH by approximately 5% for each 0.1 unit of pH change. Assay results have been normalized to pH = 7.40. Serum 10/26/2024 4:42 PM EDT 10/26/2024 4:47 PM EDT Narrative [facility] - 10/26/2024 4:55 PM EDT This test has been developed and its performance characteristics determined by [facility] which is certified under [...] ORDERABLES Final Resu lt Performing Organization Address [facility] Co de Phone Number [facility] [address] [place] [address], [facility] * Repeat Crossmatch (Recipient Sample) (10/26/2024 4:42 PM EDT) Repeat Cx - Recipient The request and specimen(s) for this test have been received and transported to the [facility] at [address] [place] [address]. The [facility] will report results directly to the client. 10/26/2024 4:49 PM EDT [facility] Whole Blood 10/26/2024 4:42 PM EDT 10/26/2024 4:49 PM EDT Narrative [facility] - 10/26/2024 4:49 PM EDT To be sent to [facility] for Donor UNOS#[id number] cross match with Blair Gilbert Sveta Judge MD LAB BLOOD ORDERABLES Final Resu lt [facility] [address] * (ABNORMAL) Lactic Acid (10/26/2024 4:42 PM EDT) Lactate 0.3(L) 0.5 - 2.2 mmol/L 10/26/2024 5:19 PM EDT [facility] Plasma 10/26/2024 4:42 PM EDT 10/26/2024 4:47 PM EDT Kemar Sahni MD LAB BLOOD ORDERABLES Final Result Performing Organization Address [facility]/ZIP Co de Phone Number [facility] [address] [facility]. [address] * Magnesium (10/26/2024 4:42 PM EDT) Magnesium 2.0 1.5 - 2.5 mg/dL 10/26/2024 5:24 PM EDT [facility] Plasma 10/26/2024 4:42 PM EDT 10/26/2024 4:47 PM EDT Kemar Sahni MD LAB BLOOD ORDERABLES Final Result [facility] [address] [facility]. [address] * (ABNORMAL) Hepatic Function Panel (10/26/2024 4:42 PM EDT) Total Bilirubin 2.3(H) 0.0 - 1.5 mg/dL 10/26/2024 5:24 PM EDT [facility] Bilirubin, Direct 1.85(H) 0.00 - 0.40 mg/dL 10/26/2024 5:24 PM EDT [facility] AST 374(H) 13 - 39 U/L 10/26/2024 5:24 PM EDT [facility] ALT 458(H) 7 - 52 U/L 10/26/2024 5:24 PM EDT [facility] Alkaline Phosphatase 39 36 - 125 U/L 10/26/2024 5:24 PM EDT [facility] Total Protein 3.8(L) 6.4 - 8.9 g/dL 10/26/2024 5:24 PM EDT [facility] Albumin 3.0(L) 3.5 - 5.7 g/dL 10/26/2024 5:24 PM EDT [facility] Bilirubin, Indirect 0.45 0.00 - 1.10 mg/dL 10/26/2024 5:24 PM EDT [facility] Plasma 10/26/2024 4:42 PM EDT 10/26/2024 4:47 PM EDT Kemar Sahni MD LAB BLOOD ORDERABLES Final Result Performing Organization Address City/State/[facility] Co de Phone Number [facility] [address] * (ABNORMAL) Protime-INR (10/26/2024 4:42 PM EDT) Protime 20.3(H) 12.1 - 15.1 seconds 10/26/2024 5:12 PM EDT [facility] INR 1.7(H) 0.9 - 1.1 10/26/2024 5:12 PM EDT [facility] Comment: RECOMMENDED THERAPEUTIC RANGES USING INR : Stable oral anticoagulant therapy: 2.0 - 3.0 Mechanical prosthetic heart valve: 2.5 - 3.5 Recurrent acute myocardial infarction: 2.5 - 3.5 Plasma 10/26/2024 4:42 PM EDT 10/26/2024 4:47 PM EDT Kemar Sahni MD LAB BLOOD ORDERABLES Final Result [facility] [address] * (ABNORMAL) CBC (10/26/2024 4:42 PM EDT) WBC 10.0 3.8 - 10.8 10E3/uL 10/26/2024 5:00 PM EDT [facility] RBC 3.44(L) 4.20 - 5.80 10E6/uL 10/26/2024 5:00 PM EDT [facility] Hemoglobin 10.5(L) 13.2 - 17.1 g/dL 10/26/2024 5:00 PM EDT [facility] Hematocrit 30.2(L) 38.5 - 50.0 % 10/26/2024 5:00 PM EDT [facility] MCV 87.7 80.0 - 100.0 fL 10/26/2024 5:00 PM EDT [facility] MCH 30.6 27.0 - 33.0 pg 10/26/2024 5:00 PM EDT [facility] MCHC 34.8 32.0 - 36.0 g/dL 10/26/2024 5:00 PM EDT [facility] RDW 20.1(H) 11.0 - 15.0 % 10/26/2024 5:00 PM EDT [facility] Platelets 48(L) 140 - 400 10E3/uL 10/26/2024 5:00 PM EDT [facility] Comment:Specimen checked for clots. None detected. MPV 7.9 7.5 - 11.5 fL 10/26/2024 5:00 PM EDT [facility] Whole Blood 10/26/2024 4:42 PM EDT 10/26/2024 4:47 PM EDT Kemar Sahni MD LAB BLOOD ORDERABLES Final Result [facility] [address] * (ABNORMAL) Renal Function Panel w/EGFR (10/26/2024 4:42 PM EDT) Sodium 142 133 - 146 mmol/L 10/26/2024 5:24 PM EDT [facility] Potassium 3.3(L) 3.5 - 5.3 mmol/L 10/26/2024 5:24 PM EDT [facility] Chloride 109 98 - 110 mmol/L 10/26/2024 5:24 PM EDT [facility] CO2 23 21 - 33 mmol/L 10/26/2024 5:24 PM EDT [facility] Anion Gap 10 3 - 16 mmol/L 10/26/2024 5:24 PM EDT [facility] BUN 63(H) 7 - 25 mg/dL 10/26/2024 5:24 PM EDT [facility] Creatinine 2.85(H) 0.60 - 1.30 mg/dL 10/26/2024 5:24 PM EDT [facility] Glucose 127(H) 70 - 100 mg/dL 10/26/2024 5:24 PM EDT [facility] Calcium 8.9 8.6 - 10.3 mg/dL 10/26/2024 5:24 PM EDT [facility] Phosphorus 4.4 2.1 - 4.7 mg/dL 10/26/2024 5:24 PM EDT [facility] Albumin 3.0(L) 3.5 - 5.7 g/dL 10/26/2024 5:24 PM EDT [facility] Osmolality, Calculated 314(H) 278 - 305 mOsm/kg 10/26/2024 5:24 PM EDT [facility] EGFR 28 10/26/2024 5:24 PM EDT [facility] Comment:As of 2021, the [...] M, Olivia DC, Emerita [place], Madelyn [place], Chief Librarian Branch Or Department [place], et al. A Unifying Approach for GFR Estimation: Recommendations of the NKF-ASN Task Force on Reassessing the inclusion of Race in Diagnosing Kidney Disease. Am J Kidney Dis. 2020. Plasma 10/26/2024 4:42 PM EDT 10/26/2024 4:47 PM EDT Kemar Sahni MD LAB BLOOD ORDERABLES Final Result Performing Organization Address City/[facility]/ZIP Co de Phone Number [facility] [address] [facility]. [address] * (ABNORMAL) POC Glucose Monitoring Device (10/26/2024 3:54 PM EDT) POC Glucose Monitoring Device 126(H) 70 - 100 mg/dL 10/26/2024 3:55 PM EDT [facility] Blood 10/26/2024 3:54 PM EDT 10/26/2024 3:55 PM EDT Semaj Mcnair III, MD POINT OF CARE TEST ORDERABLES Final Result Performing Organization Address [facility] Co de Phone Number [facility] [address] [facility] * (ABNORMAL) POC Glucose Monitoring Device (10/26/2024 3:06 PM EDT) POC Glucose Monitoring Device 144(H) 70 - 100 mg/dL 10/26/2024 3:14 PM EDT [facility] Blood 10/26/2024 3:06 PM EDT 10/26/2024 3:13 PM EDT Semaj Mcnair III, MD POINT OF CARE TEST ORDERABLES Final Result Performing Organization Address City/[facility] Co de Phone Number [facility] [address] [facility] * (ABNORMAL) TEG-Bypass/ECMO/Liver HN (Factor function, Platelet/Fibrin Clot Strength w/Clot Breakdown, Heparinase In All Channels) (10/26/2024 3:03 PM EDT) Citrated Kaolin Reaction Time (TEGECMOLIVER) 8.2 4.6 - 9.1 minutes 10/26/2024 4:43 PM EDT [facility] Citrated Kaolin W/Heparinase Reaction Time (TEGECMOLIVER) 8.2 4.3 - 8.3 minutes 10/26/2024 4:43 PM EDT [facility] Citrated Kaolin Maximum Amplitude (TEGECMOLIVER) 41.7(L) 52.0 - 69.0 mm 10/26/2024 4:43 PM EDT [facility] Citrated Functional Fibrinogen W/Heparinase Maximum Amplitude(TEGEC MOLIVER) 11.4(L) 15.0 - 34.0 mm 10/26/2024 4:43 PM EDT [facility] Citrated Rapid Teg W/Heparinase Maximum Amplitude (TEGECMOLIVER) 38.6(L) 53.0 - 69.0 mm 10/26/2024 4:43 PM EDT [facility] Citrated Kaolin w/Heparinase Percent Lysis (TEGECMOLIVER) 0.0 0.0 - 3.2 % 10/26/2024 4:43 PM EDT [facility] Whole Blood (Citrate) 10/26/2024 3:03 PM EDT 10/26/2024 3:10 PM EDT us Jani Mooney MD LAB BLOOD ORDERABLES Final Resul t Performing Organization Address City/State/[facility] Co de Phone Number [facility] [address] [id number] * ECG 12 lead (MUSE) (10/26/2024 2:19 PM EDT) 10/26/2024 2:19 PM EDT Narrative MUSE - 10/27/2024 10:09 AM EDT Ventricular Rate: 105 BPM Atrial Rate: 105 BPM P-R Interval: 128 ms QRS Duration: 94 ms QT: 474 ms QTc: 626 ms R Montgomery: -37 degrees T Montgomery: 35 degrees Diagnosis Line: Critical Test Result: Long QTc ^ SINUS TACHYCARDIA ^ LEFT AXIS DEVIATION, LEFT ANTERIOR HEMIBLOCK ^ PROLONGED QT ^ ABNORMAL ECG ^ ^ Confirmed by MD HA, [facility] on 10/27/2024 10:09:25 AM us Quinten Best MD ECG ORDERABLES Final Result MUSE * (ABNORMAL) POC Glucose Monitoring Device (10/26/2024 2:00 PM EDT) POC Glucose Monitoring Device 183(H) 70 - 100 mg/dL 10/26/2024 2:01 PM EDT [facility] Blood 10/26/2024 2:00 PM EDT 10/26/2024 2:01 PM EDT Semaj Mcnair III, MD POINT OF CARE TEST ORDERABLES Final Result Performing Organization Address [facility] Co de Phone Number [facility] [address] [facility]. [address] * (ABNORMAL) POC Glucose Monitoring Device (10/26/2024 1:05 PM EDT) POC Glucose Monitoring Device 212(H) 70 - 100 mg/dL 10/26/2024 1:06 PM EDT [facility] Blood 10/26/2024 1:05 PM EDT 10/26/2024 1:06 PM EDT us Semaj Mcnair III, MD POINT OF CARE TEST ORDERABLES Final Result Performing Organization Address [facility]/ZIP Co de Phone Number [facility] [address] * Transfuse Cryoprecipitate Has consent been [...] ADMIN Final Result Performing Organization Address City/[facility] Co de Phone Number EXTERNAL * (ABNORMAL) POC Glucose Monitoring Device (10/26/2024 12:06 PM EDT) POC Glucose Monitoring Device 226(H) 70 - 100 mg/dL 10/26/2024 12:07 PM EDT [facility] Blood 10/26/2024 12:0 6 PM EDT 10/26/2024 12:07 PM EDT Semaj Mcnair III, MD POINT OF CARE TEST ORDERABLES Final Result Performing Organization Address [facility] Co de Phone Number [facility] [address] * Transfuse Cryoprecipitate Transfusion Rate: Per dept routine (10/26/2024 12:01 PM EDT) John Pina MD NURSING TREATMENT ORDERABLES - BLOOD ADMIN Final Result Performing Organization Address [facility] de Phone Number EXTERNAL * Transfuse Cryoprecipitate Transfusion Rate: Per dept routine, 1 Units (10/26/2024 12:01 PM EDT) John Pina MD NURSING TREATMENT ORDERABLES - BLOOD ADMIN Final Result Performing Organization Address City/[facility] de Phone Number EXTERNAL * Lactic Acid (10/26/2024 10:48 AM EDT) Lactate 1.2 0.5 - 2.2 mmol/L 10/26/2024 11:27 AM EDT [facility] Plasma 10/26/2024 10:4 8 AM EDT 10/26/2024 10:53 AM EDT Kemar Sahni MD LAB BLOOD ORDERABLES Final Result Performing Organization Address City/[facility] Co de Phone Number [facility] [address] * Magnesium (10/26/2024 10:48 AM EDT) Magnesium 2.0 1.5 - 2.5 mg/dL 10/26/2024 11:26 AM EDT [facility] Plasma 10/26/2024 10:4 8 AM EDT 10/26/2024 10:53 AM EDT Kemar Sahni MD LAB BLOOD ORDERABLES Final Result [facility] [address] * (ABNORMAL) Hepatic Function Panel (10/26/2024 10:48 AM EDT) Total Bilirubin 5.9(H) 0.0 - 1.5 mg/dL 10/26/2024 11:26 AM EDT [facility] Bilirubin, Direct 4.74(H) 0.00 - 0.40 mg/dL 10/26/2024 11:26 AM EDT [facility] AST 872(H) 13 - 39 U/L 10/26/2024 11:26 AM EDT [facility] ALT 736(H) 7 - 52 U/L 10/26/2024 11:26 AM EDT [facility] Alkaline Phosphatase 56 36 - 125 U/L 10/26/2024 11:26 AM EDT [facility] Total Protein 3.5(L) 6.4 - 8.9 g/dL 10/26/2024 11:26 AM EDT [facility] Albumin 2.5(L) 3.5 - 5.7 g/dL 10/26/2024 11:26 AM EDT [facility] Bilirubin, Indirect 1.16(H) 0.00 - 1.10 mg/dL 10/26/2024 11:26 AM EDT [facility] Plasma 10/26/2024 10:4 8 AM EDT 10/26/2024 10:53 AM EDT Kemar Sahni MD LAB BLOOD ORDERABLES Final Result Performing Organization Address City/[facility]/ZIP Co de Phone Number [facility] [address] * (ABNORMAL) Protime-INR (10/26/2024 10:48 AM EDT) Protime 23.0(H) 12.1 - 15.1 seconds 10/26/2024 11:26 AM EDT [facility] INR 2.0(H) 0.9 - 1.1 10/26/2024 11:26 AM EDT [facility] Comment: RECOMMENDED THERAPEUTIC RANGES USING INR : Stable oral anticoagulant therapy: 2.0 - 3.0 Mechanical prosthetic heart valve: 2.5 - 3.5 Recurrent acute myocardial infarction: 2.5 - 3.5 Plasma 10/26/2024 10:4 8 AM EDT 10/26/2024 10:53 AM EDT Kemar Sahni MD LAB BLOOD ORDERABLES Final Result Performing Organization Address [facility] Co de Phone Number [facility] [address] * (ABNORMAL) CBC (10/26/2024 10:48 AM EDT) WBC 17.3(H) 3.8 - 10.8 10E3/uL 10/26/2024 11:14 AM EDT [facility] RBC 4.22 4.20 - 5.80 10E6/uL 10/26/2024 11:14 AM EDT [facility] Hemoglobin 12.8(L) 13.2 - 17.1 g/dL 10/26/2024 11:14 AM EDT [facility] Hematocrit 37.2(L) 38.5 - 50.0 % 10/26/2024 11:14 AM EDT [facility] MCV 88.3 80.0 - 100.0 fL 10/26/2024 11:14 AM EDT [facility] MCH 30.4 27.0 - 33.0 pg 10/26/2024 11:14 AM EDT [facility] MCHC 34.4 32.0 - 36.0 g/dL 10/26/2024 11:14 AM EDT [facility] RDW 20.8(H) 11.0 - 15.0 % 10/26/2024 11:14 AM EDT [facility] Platelets 109(L) 140 - 400 10E3/uL 10/26/2024 11:14 AM EDT [facility] MPV 7.5 7.5 - 11.5 fL 10/26/2024 11:14 AM EDT [facility] Whole Blood 10/26/2024 10:4 8 AM EDT 10/26/2024 10:53 AM EDT us Kemar Sahni MD LAB BLOOD ORDERABLES Final Result [facility] [address] [place] [address], [facility] * (ABNORMAL) Blood gas, arterial (10/26/2024 10:48 AM EDT) O2 Sat, Arterial 97 10/26/2024 10:54 AM EDT [facility] FIO2 35% 10/26/2024 10:54 AM EDT [facility] pH, Arterial 7.37 7.35 - 7.45 10/26/2024 10:54 AM EDT [facility] pCO2, Arterial 36 35 - 45 mm Hg 10/26/2024 10:54 AM EDT [facility] pO2, Arterial 91 80 - 100 mm Hg 10/26/2024 10:54 AM EDT [facility] HCO3, Arterial 22 22 - 26 mmol/L 10/26/2024 10:54 AM EDT [facility] CO2 Content,Arteri al 22(L) 23 - 27 mmol/L 10/26/2024 10:54 AM EDT [facility] Base Excess, Arterial -3.9(L) -2.0 - 3.0 mmol/L 10/26/2024 10:54 AM EDT [facility] %HBO2, Arterial 94.8(L) 95.0 - 98.0 % 10/26/2024 10:54 AM EDT [facility] Carboxyhemoglo bin, Arterial 1.9 % 10/26/2024 10:54 AM EDT [facility] Comment: CARBOXYHEMOGLOBIN (CO) REFERENCE RANGES: Non-Smokers: <2 % Smokers: <8 % TOXIC: >20 % Methemoglobin, Arterial 0.7 0.0 - 1.5 % 10/26/2024 10:54 AM EDT [facility] Reduced hemoglobin, Arterial 2.5 0.0 - 5.0 % 10/26/2024 10:54 AM EDT [facility] Blood, Arterial 10/26/2024 1 0:48 AM EDT 10/26/2024 10:52 AM EDT us Shay Sifuentes MD LAB BLOOD ORDERABLES Final Resu lt [facility] [address] * (ABNORMAL) Renal Function Panel w/EGFR (10/26/2024 10:48 AM EDT) Sodium 139 133 - 146 mmol/L 10/26/2024 11:26 AM EDT [facility] Potassium 2.9(LL) 3.5 - 5.3 mmol/L 10/26/2024 11:26 AM EDT [facility] Comment:K CRITICAL VALUE WAS PREVIOUSLY CALLED Chloride 107 98 - 110 mmol/L 10/26/2024 11:26 AM EDT [facility] CO2 22 21 - 33 mmol/L 10/26/2024 11:26 AM EDT [facility] Anion Gap 10 3 - 16 mmol/L 10/26/2024 11:26 AM EDT [facility] BUN 61(H) 7 - 25 mg/dL 10/26/2024 11:26 AM EDT [facility] Creatinine 2.78(H) 0.60 - 1.30 mg/dL 10/26/2024 11:26 AM EDT [facility] Glucose 253(H) 70 - 100 mg/dL 10/26/2024 11:26 AM EDT [facility] Calcium 8.8 8.6 - 10.3 mg/dL 10/26/2024 11:26 AM EDT [facility] Phosphorus 4.1 2.1 - 4.7 mg/dL 10/26/2024 11:26 AM EDT [facility] Albumin 2.5(L) 3.5 - 5.7 g/dL 10/26/2024 11:26 AM EDT [facility] Osmolality, Calculated 314(H) 278 - 305 mOsm/kg 10/26/2024 11:26 AM EDT [facility] EGFR 28 10/26/2024 11:26 AM EDT [facility] Comment:As of 2021, the [...] Sahni MD LAB BLOOD ORDERABLES Final Result [facility] [address] [place] [address] * (ABNORMAL) POC Glucose Monitoring Device (10/26/2024 10:47 AM EDT) POC Glucose Monitoring Device 234(H) 70 - 100 mg/dL 10/26/2024 10:48 AM EDT [facility] Blood 10/26/2024 10:4 7 AM EDT 10/26/2024 10:48 AM EDT Semaj Mcnair III, MD POINT OF CARE TEST ORDERABLES Final Result Performing Organization Address City/[facility] Co de Phone Number [facility] [address] * CARISA Rhythm Strip - Scan (10/26/2024 10:45 AM EDT) us Scanning Uchhim SCAN DOCS - NO RESULTS Final Res ult * (ABNORMAL) POC Glucose Monitoring Device (10/26/2024 10:08 AM EDT) POC Glucose Monitoring Device 235(H) 70 - 100 mg/dL 10/26/2024 10:09 AM EDT [facility] Blood 10/26/2024 10:0 8 AM EDT 10/26/2024 10:09 AM EDT us Semaj Mcnair III, MD POINT OF CARE TEST ORDERABLES Final Result Performing Organization Address [facility] Co de Phone Number [facility] [address] [facility]. [address] * (ABNORMAL) POC Glucose Monitoring Device (10/26/2024 8:57 AM EDT) POC Glucose Monitoring Device 232(H) 70 - 100 mg/dL 10/26/2024 8:59 AM EDT [facility] Blood 10/26/2024 8:57 AM EDT 10/26/2024 8:58 AM EDT us Semaj Mcnair III, MD POINT OF CARE TEST ORDERABLES Final Result Performing Organization Address City/[facility] Co de Phone Number [facility] [address] [facility]. [address] * ECG 12 lead (MUSE) (10/26/2024 8:16 AM EDT) 10/26/2024 8:16 AM EDT Narrative MUSE - 10/27/2024 10:09 AM EDT Ventricular Rate: 112 BPM QRS Duration: 96 ms QT: 452 ms QTc: 616 ms R Montgomery: -41 degrees T Montgomery: 40 degrees Diagnosis Line: Critical Test Result: Long QTc ^ SINUS TACHYCARDIA OCCASIONAL PREMATURE VENTRICULAR COMPLEXES ^ LEFT AXIS DEVIATION, LEFT ANTERIOR HEMIBLOCK ^ PROLONGED QT ^ ABNORMAL ECG ^ ^ Confirmed by MD HA, [facility] ([id number]) on 10/27/2024 10:09:18 AM us [...] Glucose Monitoring Device (10/26/2024 7:59 AM EDT) [facility] POC Glucose Monitoring Device 229(H) 70 - 100 mg/dL 10/26/2024 8:01 AM EDT [facility] Blood 10/26/2024 7:59 AM EDT 10/26/2024 8:00 AM EDT Semaj Mcnair III, MD POINT OF CARE TEST ORDERABLES Final Result [facility] [address] * (ABNORMAL) TEG-Bypass/ECMO/Liver HN (Factor function, Platelet/Fibrin Clot Strength w/Clot Breakdown, Heparinase In All Channels) (10/26/2024 7:59 AM EDT) Citrated Kaolin Reaction Time (TEGECMOLIVER) 8.2 4.6 - 9.1 minutes 10/26/2024 10:36 AM EDT [facility] Citrated Kaolin W/Heparinase Reaction Time (TEGECMOLIVER) 8.1 4.3 - 8.3 minutes 10/26/2024 10:36 AM EDT [facility] Citrated Kaolin Maximum Amplitude (TEGECMOLIVER) 46.8(L) 52.0 - 69.0 mm 10/26/2024 10:36 AM EDT [facility] Citrated Functional Fibrinogen W/Heparinase Maximum Amplitude(TEGEC MOLIVER) 10.5(L) 15.0 - 34.0 mm 10/26/2024 10:36 AM EDT [facility] Citrated Rapid Teg W/Heparinase Maximum Amplitude (TEGECMOLIVER) 45.5(L) 53.0 - 69.0 mm 10/26/2024 10:36 AM EDT [facility] Citrated Kaolin w/Heparinase Percent Lysis (TEGECMOLIVER) 0.0 0.0 - 3.2 % 10/26/2024 10:36 AM EDT [facility] Whole Blood (Citrate) 10/26/2024 7:59 AM EDT 10/26/2024 8:05 AM EDT Shay Sifuentes MD LAB BLOOD ORDERABLES Final Resu lt Performing Organization Address [facility]/ZIP Co de Phone Number [facility] [address] * (ABNORMAL) POC Glucose Monitoring Device (10/26/2024 6:12 AM EDT) POC Glucose Monitoring Device 196(H) 70 - 100 mg/dL 10/26/2024 6:13 AM EDT [facility] Blood 10/26/2024 6:12 AM EDT 10/26/2024 6:13 AM EDT Semaj Mcnair III, MD POINT OF CARE TEST ORDERABLES Final Result Performing Organization Address [facility] de Phone Number [facility] [address] * Lactic Acid (10/26/2024 6:10 AM EDT) Lactate 1.2 0.5 - 2.2 mmol/L 10/26/2024 6:39 AM EDT [facility] [facility] Plasma 10/26/2024 6:10 AM EDT 10/26/2024 6:19 AM EDT Sveta Judge MD LAB BLOOD ORDERABLES Final Resu lt Performing Organization Address [facility] Co de Phone Number [facility] [address] * (ABNORMAL) Fibrinogen (10/26/2024 6:10 AM EDT) Fibrinogen 160(L) 218 - 406 mg/dL 10/26/2024 6:41 AM EDT [facility] Plasma 10/26/2024 6:10 AM EDT 10/26/2024 6:26 AM EDT Sveta Judge MD LAB BLOOD ORDERABLES Final Resu lt Performing Organization Address [facility] de Phone Number [facility] [address] [place] [address]. [address] * (ABNORMAL) Protime-INR (10/26/2024 6:10 AM EDT) Protime 25.0(H) 12.1 - 15.1 seconds 10/26/2024 6:41 AM EDT [facility] INR 2.2(H) 0.9 - 1.1 10/26/2024 6:41 AM EDT [facility] Comment: RECOMMENDED THERAPEUTIC RANGES USING INR : Stable oral anticoagulant therapy: 2.0 - 3.0 Mechanical prosthetic heart valve: 2.5 - 3.5 Recurrent acute myocardial infarction: 2.5 - 3.5 Plasma 10/26/2024 6:10 AM EDT 10/26/2024 6:26 AM EDT Sveta Judeg MD LAB BLOOD ORDERABLES Final Resu lt Performing Organization Address [facility] de Phone Number [facility] [address] [facility]. [address] * (ABNORMAL) Blood gas, arterial (10/26/2024 6:10 AM EDT) O2 Sat, Arterial 98 10/26/2024 6:23 AM EDT [facility] FIO2 60 10/26/2024 6:23 AM EDT [facility] pH, Arterial 7.27(L) 7.35 - 7.45 10/26/2024 6:23 AM EDT [facility] pCO2, Arterial 47(H) 35 - 45 mm Hg 10/26/2024 6:23 AM EDT [facility] pO2, Arterial 127(H) 80 - 100 mm Hg 10/26/2024 6:23 AM EDT [facility] HCO3, Arterial 21(L) 22 - 26 mmol/L 10/26/2024 6:23 AM EDT [facility] CO2 Content,Arteri al 23 23 - 27 mmol/L 10/26/2024 6:23 AM EDT [facility] Base Excess, Arterial -5.4(L) -2.0 - 3.0 mmol/L 10/26/2024 6:23 AM EDT [facility] %HBO2, Arterial 94.6(L) 95.0 - 98.0 % 10/26/2024 6:23 AM EDT [facility] Carboxyhemoglo bin, Arterial 2.0 % 10/26/2024 6:23 AM EDT [facility] Comment: CARBOXYHEMOGLOBIN (CO) REFERENCE RANGES: Non-Smokers: <2 % Smokers: <8 % TOXIC: >20 % Methemoglobin, Arterial 1.6(H) 0.0 - 1.5 % 10/26/2024 6:23 AM EDT [facility] Reduced hemoglobin, Arterial 1.8 0.0 - 5.0 % 10/26/2024 6:23 AM EDT [facility] Blood, Arterial 10/26/2024 6 :10 AM EDT 10/26/2024 6:20 AM EDT Sveta Judge MD LAB BLOOD ORDERABLES Final Resu lt [facility] [address] * Magnesium (10/26/2024 6:10 AM EDT) Magnesium 1.5 1.5 - 2.5 mg/dL 10/26/2024 7:09 AM EDT [facility] Plasma 10/26/2024 6:10 AM EDT 10/26/2024 6:23 AM EDT Sveta Judge MD LAB BLOOD ORDERABLES Final Resu lt [facility] [address] [address], [facility] * (ABNORMAL) Hepatic Function Panel (10/26/2024 6:10 AM EDT) Total Bilirubin 6.2(H) 0.0 - 1.5 mg/dL 10/26/2024 7:11 AM EDT [facility] Bilirubin, Direct 5.26(H) 0.00 - 0.40 mg/dL 10/26/2024 7:11 AM EDT [facility] AST 1,071(H) 13 - 39 U/L 10/26/2024 7:11 AM EDT [facility] ALT 805(H) 7 - 52 U/L 10/26/2024 7:11 AM EDT [facility] Alkaline Phosphatase 55 36 - 125 U/L 10/26/2024 7:11 AM EDT [facility] Total Protein <3.0(L) 6.4 - 8.9 g/dL 10/26/2024 7:11 AM EDT [facility] Albumin 1.9(L) 3.5 - 5.7 g/dL 10/26/2024 7:11 AM EDT [facility] Bilirubin, Indirect 0.94 0.00 - 1.10 mg/dL 10/26/2024 7:11 AM EDT [facility] Plasma 10/26/2024 6:10 AM EDT 10/26/2024 6:23 AM EDT Sveta Judge MD LAB BLOOD ORDERABLES Final Resu lt [facility] [address] [place], [place] [address] * (ABNORMAL) Renal Function Panel w/EGFR (10/26/2024 6:10 AM EDT) Sodium 141 133 - 146 mmol/L 10/26/2024 7:09 AM EDT [facility] Potassium 2.8(LL) 3.5 - 5.3 mmol/L 10/26/2024 7:09 AM EDT [facility] Comment:Critical value previ ously called. Chloride 106 98 - 110 mmol/L 10/26/2024 7:09 AM EDT [facility] CO2 25 21 - 33 mmol/L 10/26/2024 7:09 AM EDT [facility] Anion Gap 10 3 - 16 mmol/L 10/26/2024 7:09 AM EDT [facility] BUN 57(H) 7 - 25 mg/dL 10/26/2024 7:09 AM EDT [facility] Creatinine 2.70(H) 0.60 - 1.30 mg/dL 10/26/2024 7:09 AM EDT [facility] Glucose 210(H) 70 - 100 mg/dL 10/26/2024 7:09 AM EDT [facility] Calcium 8.7 8.6 - 10.3 mg/dL 10/26/2024 7:09 AM EDT [facility] Phosphorus 5.4(H) 2.1 - 4.7 mg/dL 10/26/2024 7:09 AM EDT [facility] Albumin 1.9(L) 3.5 - 5.7 g/dL 10/26/2024 7:11 AM EDT [facility] Osmolality, Calculated 314(H) 278 - 305 mOsm/kg 10/26/2024 7:09 AM EDT [facility] EGFR 29 10/26/2024 7:09 AM EDT [facility] Comment:As of 2021, the [...] BLOOD ORDERABLES Final Resu lt [facility] [address] * (ABNORMAL) CBC (10/26/2024 6:10 AM EDT) WBC 14.8(H) 3.8 - 10.8 10E3/uL 10/26/2024 6:46 AM EDT [facility] RBC 4.04(L) 4.20 - 5.80 10E6/uL 10/26/2024 6:46 AM EDT [facility] Hemoglobin 12.7(L) 13.2 - 17.1 g/dL 10/26/2024 6:46 AM EDT [facility] Hematocrit 35.9(L) 38.5 - 50.0 % 10/26/2024 6:46 AM EDT [facility] MCV 89.0 80.0 - 100.0 fL 10/26/2024 6:46 AM EDT [facility] MCH 31.3 27.0 - 33.0 pg 10/26/2024 6:46 AM EDT [facility] MCHC 35.2 32.0 - 36.0 g/dL 10/26/2024 6:46 AM EDT [facility] RDW 19.7(H) 11.0 - 15.0 % 10/26/2024 6:46 AM EDT [facility] Platelets 107(L) 140 - 400 10E3/uL 10/26/2024 6:46 AM EDT [facility] MPV 7.4(L) 7.5 - 11.5 fL 10/26/2024 6:46 AM EDT [facility] Whole Blood 10/26/2024 6:10 AM EDT 10/26/2024 6:26 AM EDT Sveta Judge MD LAB BLOOD ORDERABLES Final Resu lt [facility] [address] * (ABNORMAL) POC INR (10/26/2024 5:16 AM EDT) Prothrombin Time INR, POC 2.4(H) 0.8 - 1.4 10/27/2024 6:51 AM EDT [facility] Comment: Test results may [...] TEST ORDERABLES Final Result Performing Organization Address [facility] Co de Phone Number [facility] [address] [place] [address]. [address] * POC Sample Type (10/26/2024 5:14 AM EDT) Pathologist [facility] POC Sample Type Arterial 10/26/2024 5:31 AM EDT [facility] Blood, Arterial 10/26/2024 5 :14 AM EDT 10/26/2024 5:31 AM EDT us Semaj Mcnair III, MD POINT OF CARE TEST ORDERABLES Final Result Performing Organization Address [facility] Co de Phone Number [facility] [address] [place] [address]. [address] * POC Anion Gap (10/26/2024 5:14 AM EDT) POC Anion Gap, Arterial 12 3 - 16 mmol/L 10/26/2024 5:31 AM EDT [facility] Blood, Arterial 10/26/2024 5 :14 AM EDT 10/26/2024 5:31 AM EDT us Semaj Mcnair III, MD POINT OF CARE TEST ORDERABLES Final Result Performing Organization Address City/[facility]/ZIP Co de Phone Number [facility] [address] * POC Chloride (10/26/2024 5:14 AM EDT) POC Chloride 104 98 - 110 mmol/L 10/26/2024 5:31 AM EDT [facility] Blood, Arterial 10/26/2024 5 :14 AM EDT 10/26/2024 5:31 AM EDT us Semaj Mcnair III, MD POINT OF CARE TEST ORDERABLES Final Result Performing Organization Address [facility] de Phone Number [facility] [address] * (ABNORMAL) POC Hemoglobin (10/26/2024 5:14 AM EDT) POC Hemoglobin 9.5(L) 14.0 - 18.0 g/dL 10/26/2024 5:31 AM EDT [facility] Blood, Arterial 10/26/2024 5 :14 AM EDT 10/26/2024 5:31 AM EDT us Semaj Mcnair III, MD POINT OF CARE TEST ORDERABLES Final Result Performing Organization Address [facility] de Phone Number [facility] [address] [facility]. [address] * (ABNORMAL) POC hematocrit (10/26/2024 5:14 AM EDT) POC Hematocrit 28.0(L) 40 - 52 % 10/26/2024 5:31 AM EDT [facility] Blood, Arterial 10/26/2024 5 :14 AM EDT 10/26/2024 5:31 AM EDT us Semaj Mcnair III, MD POINT OF CARE TEST ORDERABLES Final Result Performing Organization Address City/[facility]/ZIP Co de Phone Number [facility] [address] * POC Lactate (10/26/2024 5:14 AM EDT) POC Lactate 1.76 0.50 - 2.20 mmol/L 10/26/2024 5:31 AM EDT [facility] Blood, Arterial 10/26/2024 5 :14 AM EDT 10/26/2024 5:31 AM EDT us Semaj Mcnair III, MD POINT OF CARE TEST ORDERABLES Final Result [facility] [address] * (ABNORMAL) POC Glucose (10/26/2024 5:14 AM EDT) POC Glucose, Arterial 183(H) 70 - 100 mg/dL 10/26/2024 5:31 AM EDT [facility] Blood, Arterial 10/26/2024 5 :14 AM EDT 10/26/2024 5:31 AM EDT us Semaj Mcnair III, MD POINT OF CARE TEST ORDERABLES Final Result Performing Organization Address City/[facility]/ZIP Co de Phone Number [facility] [address] * (ABNORMAL) POC Ionized Calcium (10/26/2024 5:14 AM EDT) POC Ionized Calcium 5.50(H) 4.50 - 5.30 mg/dL 10/26/2024 5:31 AM EDT [facility] Blood, Arterial 10/26/2024 5 :14 AM EDT 10/26/2024 5:31 AM EDT us Semaj Mcnair III, MD POINT OF CARE TEST ORDERABLES Final Result [facility] [address] * (ABNORMAL) POC Potassium (10/26/2024 5:14 AM EDT) POC Potassium 2.8(LL) 3.5 - 5.3 mmol/L 10/26/2024 5:31 AM EDT [facility] Blood, Arterial 10/26/2024 5 :14 AM EDT 10/26/2024 5:31 AM EDT Semaj Mcnair III, MD POINT OF CARE TEST ORDERABLES Final Result [facility] [address] [place] [address]. [address] * POC Sodium (10/26/2024 5:14 AM EDT) POC Sodium 138 136 - 146 mmol/L 10/26/2024 5:31 AM EDT [facility] Blood, Arterial 10/26/2024 5 :14 AM EDT 10/26/2024 5:31 AM EDT Semaj Mcnair III, MD POINT OF CARE TEST ORDERABLES Final Result [facility] [address] [facility] * POC TCO2 (10/26/2024 5:14 AM EDT) POC TCO2, Arterial 23 23 - 27 mmol/L 10/26/2024 5:31 AM EDT [facility] Blood, Arterial 10/26/2024 5 :14 AM EDT 10/26/2024 5:31 AM EDT us Semaj Mcnair III, MD POINT OF CARE TEST ORDERABLES Final Result [facility] [address] [place] [address]. [address] * (ABNORMAL) POC O2 SAT (10/26/2024 5:14 AM EDT) POC O2 Saturation, Arterial 99(H) 95 - 98 % 10/26/2024 5:31 AM EDT [facility] Blood, Arterial 10/26/2024 5 :14 AM EDT 10/26/2024 5:31 AM EDT us Semaj Mcnair III, MD POINT OF CARE TEST ORDERABLES Final Result Performing Organization Address City/[facility]/ZIP Co de Phone Number [facility] [address] * (ABNORMAL) POC Base Excess (10/26/2024 5:14 AM EDT) POC Base Excess, Arterial -5(L) -2 - 3 mmol/L 10/26/2024 5:31 AM EDT [facility] Blood, Arterial 10/26/2024 5 :14 AM EDT 10/26/2024 5:31 AM EDT us Semaj Mcnair III, MD POINT OF CARE TEST ORDERABLES Final Result Performing Organization Address [facility] Co de Phone Number [facility] [address] [facility] * POC HCO3 (10/26/2024 5:14 AM EDT) POC HCO3, Arterial 22 22 - 26 mmol/L 10/26/2024 5:31 AM EDT [facility] Blood, Arterial 10/26/2024 5 :14 AM EDT 10/26/2024 5:31 AM EDT us Semaj Mcnair III, MD POINT OF CARE TEST ORDERABLES Final Result Performing Organization Address City/[facility]/ZIP Co de Phone Number [facility] [address] * (ABNORMAL) POC PO2 (10/26/2024 5:14 AM EDT) POC pO2, Arterial 133(H) 80 - 100 mm Hg 10/26/2024 5:31 AM EDT [facility] Blood, Arterial 10/26/2024 5 :14 AM EDT 10/26/2024 5:31 AM EDT us Semaj Mcnair III, MD POINT OF CARE TEST ORDERABLES Final Result [facility] [address] * POC PCO2 (10/26/2024 5:14 AM EDT) POC pCO2, Arterial 45 35 - 45 mm Hg 10/26/2024 5:31 AM EDT [facility] Blood, Arterial 10/26/2024 5 :14 AM EDT 10/26/2024 5:31 AM EDT us Semaj Mcnair III, MD POINT OF CARE TEST ORDERABLES Final Result Performing Organization Address [facility] Co de Phone Number [facility] [address] [facility]. [address] * (ABNORMAL) POC pH (10/26/2024 5:14 AM EDT) POC pH, Arterial 7.29(L) 7.35 - 7.45 10/26/2024 5:31 AM EDT [facility] Blood, Arterial 10/26/2024 5 :14 AM EDT 10/26/2024 5:31 AM EDT us Semaj Mcnair III, MD POINT OF CARE TEST ORDERABLES Final Result Performing Organization Address City/[facility] Co de Phone Number [facility] [address] [facility]. [address] * Transfuse Cryoprecipitate (10/26/2024 4:37 [...] TEST ORDERABLES Final Result Performing Organization Address City/[facility]/ZIP Co de Phone Number [facility] [address] [place] [address] * POC Sample Type (10/26/2024 4:24 AM EDT) Pathologist [facility] POC Sample Type Arterial 10/26/2024 5:09 AM EDT [facility] Blood, Arterial 10/26/2024 4 :24 AM EDT 10/26/2024 5:09 AM EDT Semaj Mcnair III, MD POINT OF CARE TEST ORDERABLES Final Result Performing Organization Address City/[facility]/ZIP Co de Phone Number [facility] [address] [place] [address] * POC Anion Gap (10/26/2024 4:24 AM EDT) Pathologist [facility] POC Anion Gap, Arterial 14 3 - 16 mmol/L 10/26/2024 5:09 AM EDT [facility] Blood, Arterial 10/26/2024 4 :24 AM EDT 10/26/2024 5:09 AM EDT us Semaj Mcnair III, MD POINT OF CARE TEST ORDERABLES Final Result Performing Organization Address City/[facility] Co de Phone Number [facility] [address] [place] [address]. [address] * POC Chloride (10/26/2024 4:24 AM EDT) POC Chloride 103 98 - 110 mmol/L 10/26/2024 5:09 AM EDT [facility] Blood, Arterial 10/26/2024 4 :24 AM EDT 10/26/2024 5:09 AM EDT us Semaj Mcnair III, MD POINT OF CARE TEST ORDERABLES Final Result Performing Organization Address [facility] Co de Phone Number [facility] [address] [facility]. [address] * (ABNORMAL) POC Hemoglobin (10/26/2024 4:24 AM EDT) POC Hemoglobin 10.3(L) 14.0 - 18.0 g/dL 10/26/2024 5:09 AM EDT [facility] Blood, Arterial 10/26/2024 4 :24 AM EDT 10/26/2024 5:09 AM EDT us Semaj Mcnair III, MD POINT OF CARE TEST ORDERABLES Final Result Performing Organization Address City/[facility] Co de Phone Number [facility] [address] [place] [address]. [address] * (ABNORMAL) POC hematocrit (10/26/2024 4:24 AM EDT) POC Hematocrit 30.0(L) 40 - 52 % 10/26/2024 5:09 AM EDT [facility] Blood, Arterial 10/26/2024 4 :24 AM EDT 10/26/2024 5:09 AM EDT us Semaj Mcnair III, MD POINT OF CARE TEST ORDERABLES Final Result Performing Organization Address City/[facility]/ZIP Co de Phone Number [facility] [address] [place] [address]. [address] * (ABNORMAL) POC Lactate (10/26/2024 4:24 AM EDT) POC Lactate 2.43(H) 0.50 - 2.20 mmol/L 10/26/2024 5:09 AM EDT [facility] Blood, Arterial 10/26/2024 4 :24 AM EDT 10/26/2024 5:09 AM EDT us Semaj Mcnair III, MD POINT OF CARE TEST ORDERABLES Final Result Performing Organization Address [facility] Co de Phone Number [facility] [address] [facility]. [address] * (ABNORMAL) POC Glucose (10/26/2024 4:24 AM EDT) POC Glucose, Arterial 185(H) 70 - 100 mg/dL 10/26/2024 5:09 AM EDT [facility] Blood, Arterial 10/26/2024 4 :24 AM EDT 10/26/2024 5:09 AM EDT us Semaj Mcnair III, MD POINT OF CARE TEST ORDERABLES Final Result Performing Organization Address City/[facility] Co de Phone Number [facility] [address] [place] [address]. [address] * POC Ionized Calcium (10/26/2024 4:24 AM EDT) POC Ionized Calcium 5.20 4.50 - 5.30 mg/dL 10/26/2024 5:09 AM EDT [facility] Blood, Arterial 10/26/2024 4 :24 AM EDT 10/26/2024 5:09 AM EDT us Semaj Mcnair III, MD POINT OF CARE TEST ORDERABLES Final Result Performing Organization Address City/[facility]/ZIP Co de Phone Number [facility] [address] [place] [address]. [address] * (ABNORMAL) POC Potassium (10/26/2024 4:24 AM EDT) POC Potassium 2.8(LL) 3.5 - 5.3 mmol/L 10/26/2024 5:09 AM EDT [facility] Blood, Arterial 10/26/2024 4 :24 AM EDT 10/26/2024 5:09 AM EDT us Semaj Mcnair III, MD POINT OF CARE TEST ORDERABLES Final Result Performing Organization Address [facility] Co de Phone Number [facility] [address] [facility]. [address] * POC Sodium (10/26/2024 4:24 AM EDT) POC Sodium 139 136 - 146 mmol/L 10/26/2024 5:09 AM EDT [facility] Blood, Arterial 10/26/2024 4 :24 AM EDT 10/26/2024 5:09 AM EDT us Semaj Mcnair III, MD POINT OF CARE TEST ORDERABLES Final Result Performing Organization Address City/[facility] Co de Phone Number [facility] [address] [place] [address]. [address] * POC TCO2 (10/26/2024 4:24 AM EDT) POC TCO2, Arterial 23 23 - 27 mmol/L 10/26/2024 5:09 AM EDT [facility] Blood, Arterial 10/26/2024 4 :24 AM EDT 10/26/2024 5:09 AM EDT us Semaj Mcnair III, MD POINT OF CARE TEST ORDERABLES Final Result [facility] [address] * POC O2 SAT (10/26/2024 4:24 AM EDT) POC O2 Saturation, Arterial 96 95 - 98 % 10/26/2024 5:09 AM EDT [facility] Blood, Arterial 10/26/2024 4 :24 AM EDT 10/26/2024 5:09 AM EDT us Semaj Mcnair III, MD POINT OF CARE TEST ORDERABLES Final Result Performing Organization Address [facility] Co de Phone Number [facility] [address] * (ABNORMAL) POC Base Excess (10/26/2024 4:24 AM EDT) POC Base Excess, Arterial -5(L) -2 - 3 mmol/L 10/26/2024 5:09 AM EDT [facility] Blood, Arterial 10/26/2024 4 :24 AM EDT 10/26/2024 5:09 AM EDT us Semaj Mcnair III, MD POINT OF CARE TEST ORDERABLES Final Result [facility] [address] * POC HCO3 (10/26/2024 4:24 AM EDT) POC HCO3, Arterial 22 22 - 26 mmol/L 10/26/2024 5:09 AM EDT [facility] Blood, Arterial 10/26/2024 4 :24 AM EDT 10/26/2024 5:09 AM EDT us Semaj Mcnair III, MD POINT OF CARE TEST ORDERABLES Final Result Performing Organization Address City/[facility]/ZIP Co de Phone Number [facility] [address] * POC PO2 (10/26/2024 4:24 AM EDT) POC pO2, Arterial 93 80 - 100 mm Hg 10/26/2024 5:09 AM EDT [facility] Blood, Arterial 10/26/2024 4 :24 AM EDT 10/26/2024 5:09 AM EDT us Semaj Mcnair III, MD POINT OF CARE TEST ORDERABLES Final Result Performing Organization Address [facility] Co de Phone Number [address] * POC PCO2 (10/26/2024 4:24 AM EDT) POC pCO2, Arterial 44 35 - 45 mm Hg 10/26/2024 5:09 AM EDT [facility] Blood, Arterial 10/26/2024 4 :24 AM EDT 10/26/2024 5:09 AM EDT us Semaj Mcnair III, MD POINT OF CARE TEST ORDERABLES Final Result Performing Organization Address City/[facility] Co de Phone Number [facility] [address]. [address] * (ABNORMAL) POC pH (10/26/2024 4:24 AM EDT) POC pH, Arterial 7.30(L) 7.35 - 7.45 10/26/2024 5:09 AM EDT [facility] Blood, Arterial 10/26/2024 4 :24 AM EDT 10/26/2024 5:09 AM EDT us Semaj Mcnair III, MD POINT OF CARE TEST ORDERABLES Final Result Performing Organization Address [facility] Co de Phone Number [facility] [address] * Transfuse Platelets (10/26/2024 4:14 AM EDT) Ben Blake MD NURSING TREATMENT ORDERABLES - BLOOD ADMIN Final Result * Transfuse Fresh Frozen Plasma (10/26/2024 3:47 AM EDT) Ben Blake MD NURSING TREATMENT ORDERABLES - BLOOD ADMIN Final Result * (ABNORMAL) POC INR (10/26/2024 3:34 AM EDT) Prothrombin Time INR, POC 2.8(H) 0.8 - 1.4 10/27/2024 6:51 AM EDT [facility] Comment: Test results may [...] TEST ORDERABLES Final Result Performing Organization Address [facility] Co de Phone Number [facility] [address] * POC Sample Type (10/26/2024 3:31 AM EDT) POC Sample Type Arterial 10/26/2024 4:11 AM EDT [place] [facility] Blood, Arterial 10/26/2024 3 :31 AM EDT 10/26/2024 4:11 AM EDT Semaj Mcnair III, MD POINT OF CARE TEST ORDERABLES Final Result Performing Organization Address City/[facility]/ZIP Co de Phone Number [facility] [address] * POC Anion Gap (10/26/2024 3:31 AM EDT) POC Anion Gap, Arterial 15 3 - 16 mmol/L 10/26/2024 4:11 AM EDT [facility] Blood, Arterial 10/26/2024 3 :31 AM EDT 10/26/2024 4:11 AM EDT us Semaj Mcnair III, MD POINT OF CARE TEST ORDERABLES Final Result [facility] [address] * POC Chloride (10/26/2024 3:31 AM EDT) Pathologist [facility] POC Chloride 105 98 - 110 mmol/L 10/26/2024 4:11 AM EDT [facility] Blood, Arterial 10/26/2024 3 :31 AM EDT 10/26/2024 4:11 AM EDT us Semaj Mcnair III, MD POINT OF CARE TEST ORDERABLES Final Result Performing Organization Address City/[facility]/ZIP Co de Phone Number [facility] [address] * (ABNORMAL) POC Hemoglobin (10/26/2024 3:31 AM EDT) Pathologist [facility] POC Hemoglobin 9.7(L) 14.0 - 18.0 g/dL 10/26/2024 4:11 AM EDT [facility] Blood, Arterial 10/26/2024 3 :31 AM EDT 10/26/2024 4:11 AM EDT us Semaj Mcnair III, MD POINT OF CARE TEST ORDERABLES Final Result [facility] [address] * (ABNORMAL) POC hematocrit (10/26/2024 3:31 AM EDT) POC Hematocrit 29.0(L) 40 - 52 % 10/26/2024 4:11 AM EDT [facility] Blood, Arterial 10/26/2024 3 :31 AM EDT 10/26/2024 4:11 AM EDT us Semaj Mcnair III, MD POINT OF CARE TEST ORDERABLES Final Result [facility] [address] [facility] [address] * (ABNORMAL) POC Lactate (10/26/2024 3:31 AM EDT) POC Lactate 3.54(H) 0.50 - 2.20 mmol/L 10/26/2024 4:11 AM EDT [facility] Blood, Arterial 10/26/2024 3 :31 AM EDT 10/26/2024 4:11 AM EDT us Semaj Mcnair III, MD POINT OF CARE TEST ORDERABLES Final Result Performing Organization Address [facility] Co de Phone Number [facility] [address] [facility] * (ABNORMAL) POC Glucose (10/26/2024 3:31 AM EDT) POC Glucose, Arterial 153(H) 70 - 100 mg/dL 10/26/2024 4:11 AM EDT [facility] Blood, Arterial 10/26/2024 3 :31 AM EDT 10/26/2024 4:11 AM EDT us Semaj Mcnair III, MD POINT OF CARE TEST ORDERABLES Final Result Performing Organization Address City/[facility]/ZIP Co de Phone Number [facility] [address] [facility] * POC Ionized Calcium (10/26/2024 3:31 AM EDT) POC Ionized Calcium 5.10 4.50 - 5.30 mg/dL 10/26/2024 4:11 AM EDT [facility] Blood, Arterial 10/26/2024 3 :31 AM EDT 10/26/2024 4:11 AM EDT us Semaj Mcnair III, MD POINT OF CARE TEST ORDERABLES Final Result [facility] [address] [facility] * (ABNORMAL) POC Potassium (10/26/2024 3:31 AM EDT) [facility] POC Potassium 2.6(LL) 3.5 - 5.3 mmol/L 10/26/2024 4:11 AM EDT [facility] Blood, Arterial 10/26/2024 3 :31 AM EDT 10/26/2024 4:11 AM EDT us Semaj Mcnair III, MD POINT OF CARE TEST ORDERABLES Final Result Performing Organization Address [facility] Co de Phone Number [facility] [address] [place] [address]. [address] * POC Sodium (10/26/2024 3:31 AM EDT) [facility] POC Sodium 138 136 - 146 mmol/L 10/26/2024 4:11 AM EDT [facility] Blood, Arterial 10/26/2024 3 :31 AM EDT 10/26/2024 4:11 AM EDT us Semaj Mcnair III, MD POINT OF CARE TEST ORDERABLES Final Result Performing Organization Address City/[facility] Co de Phone Number [facility] [address] [facility]. [address] * (ABNORMAL) POC TCO2 (10/26/2024 3:31 AM EDT) POC TCO2, Arterial 19(L) 23 - 27 mmol/L 10/26/2024 4:11 AM EDT [facility] Blood, Arterial 10/26/2024 3 :31 AM EDT 10/26/2024 4:11 AM EDT us Semaj Mcnair III, MD POINT OF CARE TEST ORDERABLES Final Result [facility] [address] [facility] * POC O2 SAT (10/26/2024 3:31 AM EDT) Pathologist [facility] POC O2 Saturation, Arterial 97 95 - 98 % 10/26/2024 4:11 AM EDT [facility] Blood, Arterial 10/26/2024 3 :31 AM EDT 10/26/2024 4:11 AM EDT us Semaj Mcnair III, MD POINT OF CARE TEST ORDERABLES Final Result Performing Organization Address [facility] Co de Phone Number [facility] [address] [place] [address]. [address] * (ABNORMAL) POC Base Excess (10/26/2024 3:31 AM EDT) Pathologist [facility] POC Base Excess, Arterial -9(L) -2 - 3 mmol/L 10/26/2024 4:11 AM EDT [facility] Blood, Arterial 10/26/2024 3 :31 AM EDT 10/26/2024 4:11 AM EDT us Semaj Mcnair III, MD POINT OF CARE TEST ORDERABLES Final Result [facility] [address] [facility]. [address] * (ABNORMAL) POC HCO3 (10/26/2024 3:31 AM EDT) POC HCO3, Arterial 18(L) 22 - 26 mmol/L 10/26/2024 4:11 AM EDT [facility] Blood, Arterial 10/26/2024 3 :31 AM EDT 10/26/2024 4:11 AM EDT us Semaj Mcnair III, MD POINT OF CARE TEST ORDERABLES Final Result Performing Organization Address City/[facility]/ZIP Co de Phone Number [facility] [address] [place] [address]. [address] * (ABNORMAL) POC PO2 (10/26/2024 3:31 AM EDT) POC pO2, Arterial 104(H) 80 - 100 mm Hg 10/26/2024 4:11 AM EDT [facility] Blood, Arterial 10/26/2024 3 :31 AM EDT 10/26/2024 4:11 AM EDT us Semaj Mcnair III, MD POINT OF CARE TEST ORDERABLES Final Result Performing Organization Address [facility] Co de Phone Number [facility] [address] [place] [address]. [address] * POC PCO2 (10/26/2024 3:31 AM EDT) POC pCO2, Arterial 42 35 - 45 mm Hg 10/26/2024 4:11 AM EDT [facility] Blood, Arterial 10/26/2024 3 :31 AM EDT 10/26/2024 4:11 AM EDT us Semaj Mcnair III, MD POINT OF CARE TEST ORDERABLES Final Result Performing Organization Address City/[facility] Co de Phone Number [facility] [address] [place] [address]. [address] * (ABNORMAL) POC pH (10/26/2024 3:31 AM EDT) POC pH, Arterial 7.24(L) 7.35 - 7.45 10/26/2024 4:11 AM EDT [facility] Blood, Arterial 10/26/2024 3 :31 AM EDT 10/26/2024 4:11 AM EDT Semaj Mcnair III, MD POINT OF CARE TEST ORDERABLES Final Result Performing Organization Address City/[facility]/ZIP Co de Phone Number [facility] [address] * (ABNORMAL) TEG-Global With Lysis (Baseline TEG with LY30, Will NOT Show Heparin Effect) (53:31 AM EDT) Citrated Kaolin Reaction Time (TEGLYSIS) 6.8 4.6 - 9.1 minutes 10/26/2024 5:02 AM EDT [facility] Citrated Rapid Teg Maximum Amplitude (TEGLYSIS) <40.0(L) 52.0 - 70.0 mm 10/26/2024 5:02 AM EDT [facility] Citrated Functional Fibrinogen Maximum Amplitude (TEGLYSIS) <4.0(L) 15.0 - 32.0 mm 10/26/2024 5:02 AM EDT [facility] Citrated Kaolin Percent Lysis (TEGLYSIS) 1.4 0.0 - 2.6 % 10/26/2024 5:02 AM EDT [facility] Whole Blood (Citrate) 10/26/2024 3:31 AM EDT 10/26/2024 3:40 AM EDT us Eber Quinones MD LAB BLOOD ORDERABLES Fin al Result [facility] [address] [facility]. [address] * (ABNORMAL) CBC (10/26/2024 3:31 AM EDT) WBC 9.5 3.8 - 10.8 10E3/uL 10/26/2024 3:48 AM EDT [facility] RBC 3.68(L) 4.20 - 5.80 10E6/uL 10/26/2024 3:48 AM EDT [facility] Hemoglobin 11.5(L) 13.2 - 17.1 g/dL 10/26/2024 3:48 AM EDT [facility] Hematocrit 33.0(L) 38.5 - 50.0 % 10/26/2024 3:48 AM EDT [facility] MCV 89.6 80.0 - 100.0 fL 10/26/2024 3:48 AM EDT [facility] MCH 31.1 27.0 - 33.0 pg 10/26/2024 3:48 AM EDT [facility] MCHC 34.8 32.0 - 36.0 g/dL 10/26/2024 3:48 AM EDT [facility] RDW 19.3(H) 11.0 - 15.0 % 10/26/2024 3:48 AM EDT [facility] Platelets 67(L) 140 - 400 10E3/uL 10/26/2024 3:48 AM EDT [facility] MPV 7.9 7.5 - 11.5 fL 10/26/2024 3:48 AM EDT [facility] Whole Blood 10/26/2024 3:31 AM EDT 10/26/2024 3:40 AM EDT Eber Quinones MD LAB BLOOD ORDERABLES Fin al Result [facility] [address] * (ABNORMAL) Protime-INR (10/26/2024 3:31 AM EDT) Protime 27.0(H) 12.1 - 15.1 seconds 10/26/2024 3:51 AM EDT [facility] INR 2.4(H) 0.9 - 1.1 10/26/2024 3:51 AM EDT [facility] Comment: RECOMMENDED THERAPEUTIC RANGES USING INR : Stable oral anticoagulant therapy: 2.0 - 3.0 Mechanical prosthetic heart valve: 2.5 - 3.5 Recurrent acute myocardial infarction: 2.5 - 3.5 Plasma 10/26/2024 3:31 AM EDT 10/26/2024 3:40 AM EDT Result [facility] Eber Quinones MD LAB BLOOD ORDERABLES Fin al Result Performing Organization Address City/[facility] Co de Phone Number [facility] [address] * (ABNORMAL) Fibrinogen (10/26/2024 3:31 AM EDT) [facility] Signature Fibrinogen 104(L) 218 - 406 mg/dL 10/26/2024 3:56 AM EDT [facility] Plasma 10/26/2024 3:31 AM EDT 10/26/2024 3:40 AM EDT Result [facility] Eber Quinones MD LAB BLOOD ORDERABLES Fin al Result Performing Organization Address [facility] Co de Phone Number [facility] [address] * Transfuse Fresh Frozen Plasma (10/26/2024 3:16 AM EDT) Result [facility] Ben Blake MD NURSING TREATMENT ORDERABLES - BLOOD ADMIN Final Result * Transfuse Fresh Frozen Plasma (10/26/2024 3:15 AM EDT) Result [facility] Ben Blake MD NURSING TREATMENT ORDERABLES - BLOOD ADMIN Final Result * Transfuse RBC (10/26/2024 3:14 AM EDT) Result [facility] Ben Blake MD NURSING TREATMENT ORDERABLES - BLOOD ADMIN Final Result * Transfuse RBC (10/26/2024 3:14 AM EDT) Result [facility] Ben Blake MD NURSING TREATMENT ORDERABLES - BLOOD ADMIN Final Result * Transfuse RBC (10/26/2024 2:40 AM EDT) Result [facility] Ben Blake MD NURSING TREATMENT ORDERABLES - BLOOD ADMIN Final Result * Transfuse Fresh Frozen Plasma (10/26/2024 2:39 AM EDT) Result [facility] Ben Blake MD NURSING TREATMENT ORDERABLES - BLOOD ADMIN Final Result * Transfuse Fresh Frozen Plasma (10/26/2024 2:24 AM EDT) Result [facility] Ben Blake MD NURSING TREATMENT ORDERABLES - BLOOD ADMIN Final Result * Transfuse Fresh Frozen Plasma (10/26/2024 2:03 AM EDT) us Ben Blake MD NURSING TREATMENT ORDERABLES - BLOOD ADMIN Final Result * Transfuse RBC (10/26/2024 2:01 AM EDT) Result [facility] Ben Blake MD NURSING TREATMENT ORDERABLES - BLOOD ADMIN Final Result * Transfuse RBC (10/26/2024 1:45 AM EDT) Result [facility] Ben Blake MD NURSING TREATMENT ORDERABLES - BLOOD ADMIN Final Result * Transfuse RBC (10/26/2024 1:45 AM EDT) Result [facility] us Ben Blake MD NURSING TREATMENT ORDERABLES - BLOOD ADMIN Final Result * (ABNORMAL) POC INR (10/26/2024 1:43 AM EDT) [facility] Prothrombin Time INR, POC 1.9(H) 0.8 - [...] AM EDT 10/27/2024 6:51 AM EDT Result [facility] Semaj Mcnair III, MD POINT OF CARE TEST ORDERABLES Final Result [facility] [address] [place] [address], [facility] * Transfuse Fresh Frozen Plasma (10/26/2024 1:41 AM EDT) Result [facility] us Ben Blake MD NURSING TREATMENT ORDERABLES - BLOOD ADMIN Final Result * Transfuse RBC (10/26/2024 1:40 AM EDT) Ben Blake MD NURSING TREATMENT ORDERABLES - BLOOD ADMIN Final Result * POC Sample Type (10/26/2024 1:40 AM EDT) POC Sample Type Arterial 10/26/2024 2:32 AM EDT [facility] Blood, Arterial 10/26/2024 1 :40 AM EDT 10/26/2024 2:32 AM EDT Semaj Mcnair III, MD POINT OF CARE TEST ORDERABLES Final Result [facility] [address] * POC Anion Gap (10/26/2024 1:40 AM EDT) Pathologist [facility] POC Anion Gap, Arterial 13 3 - 16 mmol/L 10/26/2024 2:32 AM EDT [facility] Blood, Arterial 10/26/2024 1 :40 AM EDT 10/26/2024 2:32 AM EDT Semaj Mcnair III, MD POINT OF CARE TEST ORDERABLES Final Result Performing Organization Address City/[facility]/ZIP Co de Phone Number [facility] [address] [facility] * POC Chloride (10/26/2024 1:40 AM EDT) Pathologist [facility] POC Chloride 104 98 - 110 mmol/L 10/26/2024 2:32 AM EDT [facility] Blood, Arterial 10/26/2024 1 :40 AM EDT 10/26/2024 2:32 AM EDT Semaj Mcnair III, MD POINT OF CARE TEST ORDERABLES Final Result Performing Organization Address City/[facility]/ZIP Co de Phone Number [facility] [address] * (ABNORMAL) POC Hemoglobin (10/26/2024 1:40 AM EDT) POC Hemoglobin 7.4(L) 14.0 - 18.0 g/dL 10/26/2024 2:32 AM EDT [facility] Blood, Arterial 10/26/2024 1 :40 AM EDT 10/26/2024 2:32 AM EDT us Semaj Mcnair III, MD POINT OF CARE TEST ORDERABLES Final Result [facility] [address] * (ABNORMAL) POC hematocrit (10/26/2024 1:40 AM EDT) [facility] POC Hematocrit 22.0(L) 40 - 52 % 10/26/2024 2:32 AM EDT [facility] Blood, Arterial 10/26/2024 1 :40 AM EDT 10/26/2024 2:32 AM EDT us Semaj Mcnair III, MD POINT OF CARE TEST ORDERABLES Final Result Performing Organization Address [facility] Co de Phone Number [facility] [address] [facility] * (ABNORMAL) POC Lactate (10/26/2024 1:40 AM EDT) Pathologist [facility] POC Lactate 2.30(H) 0.50 - 2.20 mmol/L 10/26/2024 2:32 AM EDT [facility] Blood, Arterial 10/26/2024 1 :40 AM EDT 10/26/2024 2:32 AM EDT us Semaj Mcnair III, MD POINT OF CARE TEST ORDERABLES Final Result Performing Organization Address City/[facility] Co de Phone Number [facility] [address] [facility] * (ABNORMAL) POC Glucose (10/26/2024 1:40 AM EDT) POC Glucose, Arterial 116(H) 70 - 100 mg/dL 10/26/2024 2:32 AM EDT [facility] Blood, Arterial 10/26/2024 1 :40 AM EDT 10/26/2024 2:32 AM EDT us Semaj Mcnair III, MD POINT OF CARE TEST ORDERABLES Final Result Performing Organization Address City/[facility] Co de Phone Number [facility] [address] [place] [address]. [address] * (ABNORMAL) POC Ionized Calcium (10/26/2024 1:40 AM EDT) Pathologist [facility] POC Ionized Calcium 4.10(L) 4.50 - 5.30 mg/dL 10/26/2024 2:32 AM EDT [facility] Blood, Arterial 10/26/2024 1 :40 AM EDT 10/26/2024 2:32 AM EDT us Semaj Mcnair III, MD POINT OF CARE TEST ORDERABLES Final Result Performing Organization Address [facility] de Phone Number [facility] [address] [place] [address]. [address] * (ABNORMAL) POC Potassium (10/26/2024 1:40 AM EDT) Pathologist [facility] POC Potassium 2.6(LL) 3.5 - 5.3 mmol/L 10/26/2024 2:32 AM EDT [facility] Blood, Arterial 10/26/2024 1 :40 AM EDT 10/26/2024 2:32 AM EDT us Semaj Mcnair III, MD POINT OF CARE TEST ORDERABLES Final Result Performing Organization Address [facility] Co de Phone Number [facility] [address] [place] [address]. [address] * (ABNORMAL) POC Sodium (10/26/2024 1:40 AM EDT) POC Sodium 135(L) 136 - 146 mmol/L 10/26/2024 2:32 AM EDT [facility] Blood, Arterial 10/26/2024 1 :40 AM EDT 10/26/2024 2:32 AM EDT us Semaj Mcnair III, MD POINT OF CARE TEST ORDERABLES Final Result Performing Organization Address City/[facility]/ZIP Co de Phone Number [facility] [address] [place] [address]. [address] * (ABNORMAL) POC TCO2 (10/26/2024 1:40 AM EDT) POC TCO2, Arterial 19(L) 23 - 27 mmol/L 10/26/2024 2:32 AM EDT [facility] Blood, Arterial 10/26/2024 1 :40 AM EDT 10/26/2024 2:32 AM EDT us Semaj Mcnair III, MD POINT OF CARE TEST ORDERABLES Final Result Performing Organization Address [facility] Co de Phone Number [facility] [address] [place] [address]. [address] * (ABNORMAL) POC O2 SAT (10/26/2024 1:40 AM EDT) POC O2 Saturation, Arterial 99(H) 95 - 98 % 10/26/2024 2:32 AM EDT [facility] Blood, Arterial 10/26/2024 1 :40 AM EDT 10/26/2024 2:32 AM EDT us Semaj Mcnair III, MD POINT OF CARE TEST ORDERABLES Final Result Performing Organization Address City/[facility] Co de Phone Number [facility] [address] [facility] * (ABNORMAL) POC Base Excess (10/26/2024 1:40 AM EDT) POC Base Excess, Arterial -7(L) -2 - 3 mmol/L 10/26/2024 2:32 AM EDT [facility] Blood, Arterial 10/26/2024 1 :40 AM EDT 10/26/2024 2:32 AM EDT us Semaj Mcnair III, MD POINT OF CARE TEST ORDERABLES Final Result Performing Organization Address City/[facility]/ZIP Co de Phone Number [facility] [address] [place] [address]. [address] * (ABNORMAL) POC HCO3 (10/26/2024 1:40 AM EDT) POC HCO3, Arterial 18(L) 22 - 26 mmol/L 10/26/2024 2:32 AM EDT [facility] Blood, Arterial 10/26/2024 1 :40 AM EDT 10/26/2024 2:32 AM EDT us Semaj Mcnair III, MD POINT OF CARE TEST ORDERABLES Final Result Performing Organization Address [facility] Co de Phone Number [facility] [address] [place] [address]. [address] * (ABNORMAL) POC PO2 (10/26/2024 1:40 AM EDT) POC pO2, Arterial 145(H) 80 - 100 mm Hg 10/26/2024 2:32 AM EDT [facility] Blood, Arterial 10/26/2024 1 :40 AM EDT 10/26/2024 2:32 AM EDT us Semaj Mcnair III, MD POINT OF CARE TEST ORDERABLES Final Result Performing Organization Address [facility] Co de Phone Number [facility] [address] [place] [address]. [address] * (ABNORMAL) POC PCO2 (10/26/2024 1:40 AM EDT) POC pCO2, Arterial 33(L) 35 - 45 mm Hg 10/26/2024 2:32 AM EDT [facility] Blood, Arterial 10/26/2024 1 :40 AM EDT 10/26/2024 2:32 AM EDT us Semaj Mcnair III, MD POINT OF CARE TEST ORDERABLES Final Result Performing Organization Address City/[facility] Co de Phone Number [facility] [address] [place] [address]. [address] * POC pH (10/26/2024 1:40 AM EDT) POC pH, Arterial 7.35 7.35 - 7.45 10/26/2024 2:32 AM EDT [facility] Blood, Arterial 10/26/2024 1 :40 AM EDT 10/26/2024 2:32 AM EDT us Semaj Mcnair III, MD POINT OF CARE TEST ORDERABLES Final Result Performing Organization Address [facility] Co de Phone Number [facility] [address] [facility] * Transfuse Fresh Frozen Plasma (10/26/2024 1:20 AM EDT) us Ben Blake MD NURSING TREATMENT ORDERABLES - BLOOD ADMIN Final Result * Transfuse RBC (10/26/2024 12:56 AM EDT) us Ben Blake MD NURSING TREATMENT ORDERABLES - BLOOD ADMIN Final Result * (ABNORMAL) POC INR (10/26/2024 12:41 AM EDT) Prothrombin Time INR, POC 2.0(H) 0.8 - 1.4 10/27/2024 6:51 AM EDT [facility] Comment: Test results may [...] TEST ORDERABLES Final Result Performing Organization Address City/[facility] Co de Phone Number [facility] [address] [facility]. [address] * POC Sample Type (10/26/2024 12:39 AM EDT) POC Sample Type Arterial 10/26/2024 1:38 AM EDT [facility] Blood, Arterial 10/26/2024 1 2:39 AM EDT 10/26/2024 1:38 AM EDT us Semaj Mcnair III, MD POINT OF CARE TEST ORDERABLES Final Result Performing Organization Address [facility] Co de Phone Number [facility] [address] [facility]. [address] * POC Anion Gap (10/26/2024 12:39 AM EDT) POC Anion Gap, Arterial 13 3 - 16 mmol/L 10/26/2024 1:38 AM EDT [facility] Blood, Arterial 10/26/2024 1 2:39 AM EDT 10/26/2024 1:38 AM EDT Semaj Mcnair III, MD POINT OF CARE TEST ORDERABLES Final Result Performing Organization Address City/[facility] Co de Phone Number [facility] [address] [facility]. [address] * POC Chloride (10/26/2024 12:39 AM EDT) POC Chloride 103 98 - 110 mmol/L 10/26/2024 1:38 AM EDT [facility] Blood, Arterial 10/26/2024 1 2:39 AM EDT 10/26/2024 1:38 AM EDT us Semaj Mcnair III, MD POINT OF CARE TEST ORDERABLES Final Result Performing Organization Address [facility] Co de Phone Number [facility] [address] [facility]. [address] * (ABNORMAL) POC Hemoglobin (10/26/2024 12:39 AM EDT) POC Hemoglobin 7.9(L) 14.0 - 18.0 g/dL 10/26/2024 1:38 AM EDT [facility] Blood, Arterial 10/26/2024 1 2:39 AM EDT 10/26/2024 1:38 AM EDT us Semaj Mcnair III, MD POINT OF CARE TEST ORDERABLES Final Result Performing Organization Address [facility] Co de Phone Number [facility] [address] [facility]. [address] * (ABNORMAL) POC hematocrit (10/26/2024 12:39 AM EDT) POC Hematocrit 23.0(L) 40 - 52 % 10/26/2024 1:38 AM EDT [facility] Blood, Arterial 10/26/2024 1 2:39 AM EDT 10/26/2024 1:38 AM EDT us Semaj Mcnair III, MD POINT OF CARE TEST ORDERABLES Final Result Performing Organization Address [place] Health/[facility] Co de Phone Number [facility] [address] [facility]. [address] * POC Lactate (10/26/2024 12:39 AM EDT) POC Lactate 1.39 0.50 - 2.20 mmol/L 10/26/2024 1:38 AM EDT [facility] Blood, Arterial 10/26/2024 1 2:39 AM EDT 10/26/2024 1:38 AM EDT us Semaj Mcnair III, MD POINT OF CARE TEST ORDERABLES Final Result Performing Organization Address [facility] Co de Phone Number [facility] 318[facility]. [address] * (ABNORMAL) POC Glucose (10/26/2024 12:39 AM EDT) POC Glucose, Arterial 116(H) 70 - 100 mg/dL 10/26/2024 1:38 AM EDT [facility] Blood, Arterial 10/26/2024 1 2:39 AM EDT 10/26/2024 1:38 AM EDT Semaj Mcnair III, MD POINT OF CARE TEST ORDERABLES Final Result Performing Organization Address [facility] Co de Phone Number [facility] [address] [place] [address]. [address] * (ABNORMAL) POC Ionized Calcium (10/26/2024 12:39 AM EDT) POC Ionized Calcium 4.30(L) 4.50 - 5.30 mg/dL 10/26/2024 1:38 AM EDT [facility] Blood, Arterial 10/26/2024 1 2:39 AM EDT 10/26/2024 1:38 AM EDT Semaj Mcnair III, MD POINT OF CARE TEST ORDERABLES Final Result Performing Organization Address [facility] Co de Phone Number [facility] 318[facility] Center[facility]. [address] * (ABNORMAL) POC Potassium (10/26/2024 12:39 AM EDT) POC Potassium 2.4(LL) 3.5 - 5.3 mmol/L 10/26/2024 1:38 AM EDT [facility] Blood, Arterial 10/26/2024 1 2:39 AM EDT 10/26/2024 1:38 AM EDT us Semaj Mcnair III, MD POINT OF CARE TEST ORDERABLES Final Result Performing Organization Address City/[facility] Co de Phone Number [facility] [address]. [address] * POC Sodium (10/26/2024 12:39 AM EDT) POC Sodium 136 136 - 146 mmol/L 10/26/2024 1:38 AM EDT [facility] Blood, Arterial 10/26/2024 1 2:39 AM EDT 10/26/2024 1:38 AM EDT us Semaj Mcnair III, MD POINT OF CARE TEST ORDERABLES Final Result Performing Organization Address [facility] Co de Phone Number [facility] [address]. [address] * (ABNORMAL) POC TCO2 (10/26/2024 12:39 AM EDT) POC TCO2, Arterial 21(L) 23 - 27 mmol/L 10/26/2024 1:38 AM EDT [facility] Blood, Arterial 10/26/2024 1 2:39 AM EDT 10/26/2024 1:38 AM EDT us Semaj Mcnair III, MD POINT OF CARE TEST ORDERABLES Final Result Performing Organization Address City/[facility] Co de Phone Number [facility] [address]. [address] * POC O2 SAT (10/26/2024 12:39 AM EDT) POC O2 Saturation, Arterial 98 95 - 98 % 10/26/2024 1:38 AM EDT [facility] Blood, Arterial 10/26/2024 1 2:39 AM EDT 10/26/2024 1:38 AM EDT us Semaj Mcnair III, MD POINT OF CARE TEST ORDERABLES Final Result Performing Organization Address City/[facility] Co de Phone Number [facility] [address]. [address] * (ABNORMAL) POC Base Excess (10/26/2024 12:39 AM EDT) POC Base Excess, Arterial -7(L) -2 - 3 mmol/L 10/26/2024 1:38 AM EDT [facility] Blood, Arterial 10/26/2024 1 2:39 AM EDT 10/26/2024 1:38 AM EDT us Semaj Mcnair III, MD POINT OF CARE TEST ORDERABLES Final Result Performing Organization Address [facility] Co de Phone Number [facility] [address]. [address] * (ABNORMAL) POC HCO3 (10/26/2024 12:39 AM EDT) POC HCO3, Arterial 20(L) 22 - 26 mmol/L 10/26/2024 1:38 AM EDT [facility] Blood, Arterial 10/26/2024 1 2:39 AM EDT 10/26/2024 1:38 AM EDT us Semaj Mcnair III, MD POINT OF CARE TEST ORDERABLES Final Result Performing Organization Address [facility] Co de Phone Number [facility] [address]. [address] * (ABNORMAL) POC PO2 (10/26/2024 12:39 AM EDT) POC pO2, Arterial 117(H) 80 - 100 mm Hg 10/26/2024 1:38 AM EDT [facility] Blood, Arterial 10/26/2024 1 2:39 AM EDT 10/26/2024 1:38 AM EDT Semaj Mcnair III, MD POINT OF CARE TEST ORDERABLES Final Result Performing Organization Address [facility] Co de Phone Number [facility] [address] [place] [facility]. [address] * (ABNORMAL) POC PCO2 (10/26/2024 12:39 AM EDT) POC pCO2, Arterial 46(H) 35 - 45 mm Hg 10/26/2024 1:38 AM EDT [facility] Blood, Arterial 10/26/2024 1 2:39 AM EDT 10/26/2024 1:38 AM EDT Semaj Mcnair III, MD POINT OF CARE TEST ORDERABLES Final Result Performing Organization Address [facility] Co de Phone Number [facility] [address] [facility]. [address] * (ABNORMAL) POC pH (10/26/2024 12:39 AM EDT) POC pH, Arterial 7.24(L) 7.35 - 7.45 10/26/2024 1:38 AM EDT [facility] Blood, Arterial 10/26/2024 1 2:39 AM EDT 10/26/2024 1:38 AM EDT Result [facility] Semaj Mcnair III, MD POINT OF CARE TEST ORDERABLES Final Result Performing Organization Address [facility] Co de Phone Number [facility] [address] * Transfuse Platelets (10/26/2024 12:37 AM EDT) Result [facility] Ben Blake MD NURSING TREATMENT ORDERABLES - BLOOD ADMIN Final Result * Transfuse RBC (10/26/2024 12:31 AM EDT) Result [facility] us Ben Blake MD NURSING TREATMENT [...] AM EDT) Gram Stain Result Cytospin Results: [facility] Gram Stain Result Polymorphonuclear Leukocytes Seen; [facility] Gram Stain Result No Organisms Seen; [facility] Culture Result No Growth After 3 Days [facility] Surgical Swab ABDOMEN / Unknown 12:03 AM EDT Comment:2.) Ascites Anaerobhic culture Fungus culture Routine culture plus stain Narrative [facility] - 10/28/2024 9:38 PM EDT 2.) Ascites Anaerobhic culture Fungus culture Routine culture plus stain 2.) Ascites Semaj Mcnair III, MD MICROBIOLOGY - [facility] RAL ORDERABLES Final Result Performing Organization Address City/State/[facility] Co de Phone Number [facility] [address] * Surgical Pathology Exam (10/26/2024 12:00 AM EDT) 10/26/2024 10/27/2024 Narrative [facility] - 10/26/2024 12:00 AM EDT CASE: [id number] PATIENT: BLAIR GILBERT Clinical History: Liver - kidney transplant Pre-Operative Diagnosis: Alcoholic cirrhosis of liver Post-Operative Diagnosis: Alcoholic cirrhosis of liver Specimen(s) Submitted: A. [place] [facility] CPT Code(s): 30489 X 1; 99733 X 5 Additional Information: FINAL DIAGNOSIS: A. 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 - Negative for neoplasm. - Increased hepatocellular iron deposition (3+; Modified Scheuer). Gall bladder: -Intramucosal and submucosal vascular congestion and hemorrhage. - Negative for dysplasia or malignancy. Gross Description: Received in formalin, labeled Blair Gilbert and [place] liver , is a 2338-gram, hepatectomy specimen [...] discrete masses or other lesions are identified. Brush Load[employer] Handle Attacher sections are submitted in cassettes [id number] as follows: A1: Hilar margins, en face. [...] Pathologist signing this report is located at [facility], [address] [place] [address], [facility], , CLIA ID: [id number] us Semaj Mcnair III, MD PATHOLOGY/CYTOLOGY ORDERABLES Final Result Performing Organization Address [facility]/ZIP Co de Phone Number [facility] * Transfuse [...] TEST ORDERABLES Final Result Performing Organization Address City/[facility]/ZIP Co de Phone Number [facility] * POC Sample Type (10/25/2024 11:40 PM EDT) POC Sample Type Arterial 10/25/2024 11:57 PM EDT [facility] Blood, Arterial 10/25/2024 1 1:40 PM EDT 10/25/2024 11:57 PM EDT us Semaj Mcnair III, MD POINT OF CARE TEST ORDERABLES Final Result Performing Organization Address City/[facility] Co de Phone Number [facility] [address]. [address] * POC Anion Gap (10/25/2024 11:40 PM EDT) POC Anion Gap, Arterial 13 3 - 16 mmol/L 10/25/2024 11:57 PM EDT [facility] Blood, Arterial 10/25/2024 1 1:40 PM EDT 10/25/2024 11:57 PM EDT Semaj Mcnair III, MD POINT OF CARE TEST ORDERABLES Final Result Performing Organization Address [facility] Co de Phone Number [facility] [address]. [address] * POC Chloride (10/25/2024 11:40 PM EDT) POC Chloride 102 98 - 110 mmol/L 10/25/2024 11:57 PM EDT [facility] Blood, Arterial 10/25/2024 1 1:40 PM EDT 10/25/2024 11:57 PM EDT us Semaj Mcnair III, MD POINT OF CARE TEST ORDERABLES Final Result Performing Organization Address City/[facility] Co de Phone Number [facility] [address]. [address] * (ABNORMAL) POC Hemoglobin (10/25/2024 11:40 PM EDT) POC Hemoglobin 6.6(L) 14.0 - 18.0 g/dL 10/25/2024 11:57 PM EDT [facility] Blood, Arterial 10/25/2024 1 1:40 PM EDT 10/25/2024 11:57 PM EDT us Semaj Mcnair III, MD POINT OF CARE TEST ORDERABLES Final Result Performing Organization Address City/[facility] Co de Phone Number [facility] [address] [place] [address]. [address] * (ABNORMAL) POC hematocrit (10/25/2024 11:40 PM EDT) POC Hematocrit 19.0(L) 40 - 52 % 10/25/2024 11:57 PM EDT [facility] Blood, Arterial 10/25/2024 1 1:40 PM EDT 10/25/2024 11:57 PM EDT us Semaj Mcnair III, MD POINT OF CARE TEST ORDERABLES Final Result Performing Organization Address [facility] Co de Phone Number [address] * POC Lactate (10/25/2024 11:40 PM EDT) Pathologist [facility] POC Lactate 1.36 0.50 - 2.20 mmol/L 10/25/2024 11:57 PM EDT [facility] Blood, Arterial 10/25/2024 1 1:40 PM EDT 10/25/2024 11:57 PM EDT us Semaj Mcnair III, MD POINT OF CARE TEST ORDERABLES Final Result Performing Organization Address City/[facility] Co de Phone Number [address] [facility]. [address] * (ABNORMAL) POC Glucose (10/25/2024 11:40 PM EDT) POC Glucose, Arterial 101(H) 70 - 100 mg/dL 10/25/2024 11:57 PM EDT [facility] Blood, Arterial 10/25/2024 1 1:40 PM EDT 10/25/2024 11:57 PM EDT us Semaj Mcnair III, MD POINT OF CARE TEST ORDERABLES Final Result Performing Organization Address City/[facility]/ZIP Co de Phone Number [facility] [address] [place] [address]. [address] * POC Ionized Calcium (10/25/2024 11:40 PM EDT) POC Ionized Calcium 4.50 4.50 - 5.30 mg/dL 10/25/2024 11:57 PM EDT [facility] Blood, Arterial 10/25/2024 1 1:40 PM EDT 10/25/2024 11:57 PM EDT Semaj Mcnair III, MD POINT OF CARE TEST ORDERABLES Final Result Performing Organization Address [facility] Co de Phone Number [facility] [address] [place] [address]. [address] * (ABNORMAL) POC Potassium (10/25/2024 11:40 PM EDT) Pathologist [facility] POC Potassium 1.9(LL) 3.5 - 5.3 mmol/L 10/25/2024 11:57 PM EDT [facility] Blood, Arterial 10/25/2024 1 1:40 PM EDT 10/25/2024 11:57 PM EDT Result [facility] Semaj Mcnair III, MD POINT OF CARE TEST ORDERABLES Final Result Performing Organization Address City/[facility]/ZIP Co de Phone Number [facility] [address] [place] [address]. [address] * (ABNORMAL) POC Sodium (10/25/2024 11:40 PM EDT) Pathologist [facility] POC Sodium 135(L) 136 - 146 mmol/L 10/25/2024 11:57 PM EDT [facility] Blood, Arterial 10/25/2024 1 1:40 PM EDT 10/25/2024 11:57 PM EDT us Semaj Mcnair III, MD POINT OF CARE TEST ORDERABLES Final Result Performing Organization Address City/[facility]/ZIP Co de Phone Number [facility] [address] [facility]. [address] * (ABNORMAL) POC TCO2 (10/25/2024 11:40 PM EDT) POC TCO2, Arterial 21(L) 23 - 27 mmol/L 10/25/2024 11:57 PM EDT [facility] Blood, Arterial 10/25/2024 1 1:40 PM EDT 10/25/2024 11:57 PM EDT Semaj Mcnair III, MD POINT OF CARE TEST ORDERABLES Final Result Performing Organization Address [facility] Co de Phone Number [facility] [address] [place] [facility]. [address] * POC O2 SAT (10/25/2024 11:40 PM EDT) POC O2 Saturation, Arterial 98 95 - 98 % 10/25/2024 11:57 PM EDT [facility] Blood, Arterial 10/25/2024 1 1:40 PM EDT 10/25/2024 11:57 PM EDT us Semaj Mcnair III, MD POINT OF CARE TEST ORDERABLES Final Result Performing Organization Address City/[facility]/ZIP Co de Phone Number [facility] 318[facility]. [address] * (ABNORMAL) POC Base Excess (10/25/2024 11:40 PM EDT) POC Base Excess, Arterial -6(L) -2 - 3 mmol/L 10/25/2024 11:57 PM EDT [facility] Blood, Arterial 10/25/2024 1 1:40 PM EDT 10/25/2024 11:57 PM EDT us Semaj Mcnair III, MD POINT OF CARE TEST ORDERABLES Final Result Performing Organization Address [facility] Co de Phone Number [facility] [address] [facility]. [address] * (ABNORMAL) POC HCO3 (10/25/2024 11:40 PM EDT) POC HCO3, Arterial 20(L) 22 - 26 mmol/L 10/25/2024 11:57 PM EDT [facility] Blood, Arterial 10/25/2024 1 1:40 PM EDT 10/25/2024 11:57 PM EDT Semaj Mcnair III, MD POINT OF CARE TEST ORDERABLES Final Result Performing Organization Address [facility] Co de Phone Number [facility] [address] [facility]. [address] * (ABNORMAL) POC PO2 (10/25/2024 11:40 PM EDT) POC pO2, Arterial 107(H) 80 - 100 mm Hg 10/25/2024 11:57 PM EDT [facility] Blood, Arterial 10/25/2024 1 1:40 PM EDT 10/25/2024 11:57 PM EDT Semaj Mcnair III, MD POINT OF CARE TEST ORDERABLES Final Result Performing Organization Address [facility] Co de Phone Number [facility] [address] [facility]. [address] * POC PCO2 (10/25/2024 11:40 PM EDT) POC pCO2, Arterial 41 35 - 45 mm Hg 10/25/2024 11:57 PM EDT [facility] Blood, Arterial 10/25/2024 1 1:40 PM EDT 10/25/2024 11:57 PM EDT Semaj Mcnair III, MD POINT OF CARE TEST ORDERABLES Final Result Performing Organization Address City/State/[facility] Co de Phone Number [facility] [address]. [address] * (ABNORMAL) POC pH (10/25/2024 11:40 PM EDT) POC pH, Arterial 7.29(L) 7.35 - 7.45 10/25/2024 11:57 PM EDT [facility] Blood, Arterial 10/25/2024 1 1:40 PM EDT 10/25/2024 11:57 PM EDT Semaj Mcnair III, MD POINT OF CARE TEST ORDERABLES Final Result Performing Organization Address [facility] Co de Phone Number [facility] [address]. [address] * Urine culture (10/25/2024 11:08 PM EDT) Culture Result <1,000 cfu/mL [facility] Culture Result Skin/Urogeni rony Mckayla. No Further Workup. [facility] Newly Placed Berkowitz Urine URINE SPECIMEN / Unknown 10/25/2024 11:08 PM EDT Comment:urine culture Narrative [facility] - 10/28/2024 9:59 AM EDT urine culture urine culture Semaj Mcnair III, MD MICROBIOLOGY - GENE RAL ORDERABLES Final Result Performing Organization Address [facility] Co de Phone Number [facility] Aleisha Ch[address]m. [address] * X-ray Portable Chest (10/25/2024 [...] 10/25/2024 10:38 PM EDT Leandra Og MD [facility] ORDERABLES Final Result * Lactic Acid, STAT (10/25/2024 10:17 PM EDT) Lactate 1.6 0.5 - 2.2 mmol/L 10/25/2024 10:39 PM EDT [facility] Plasma 10/25/2024 10:1 7 PM EDT 10/25/2024 10:17 PM EDT us Ben Blake MD LAB BLOOD ORDERABLES Final Re sult [facility] [address] * (ABNORMAL) Ferritin (10/25/2024 10:17 PM EDT) Ferritin 623.2(H) 23.9 - 336.2 ng/mL 10/25/2024 11:02 PM EDT [facility] Serum 10/25/2024 10:1 7 PM EDT 10/25/2024 10:17 PM EDT Leandra Og MD LAB BLOOD ORDERABLES F inal Result Performing Organization Address [facility]/ZIP Co de Phone Number [facility] [address] [facility]. [address] * Iron Studies (Iron + TIBC) (10/25/2024 10:17 PM EDT) Iron 128 50 - 212 ug/dL 10/25/2024 10:44 PM EDT [facility] % Iron Saturation SEE COMMENT 15.0 - 55.0 % 10/25/2024 10:44 PM EDT [facility] Comment:Unable to calculate result because contributing result outside reportable range.. TIBC SEE COMMENT 261 - 462 ug/dL 10/25/2024 10:44 PM EDT [facility] Comment:Unable to calculate result because contributing result outside reportable range.. Serum 10/25/2024 10:1 7 PM EDT 10/25/2024 10:17 PM EDT Leandra Og MD LAB BLOOD ORDERABLES F inal Result [facility] [address] [facility]. [address] * PTH (10/25/2024 10:17 PM EDT) PTH 36.0 12.0 - 88.0 pg/mL 10/25/2024 11:01 PM EDT [facility] Serum 10/25/2024 10:1 7 PM EDT 10/25/2024 10:17 PM EDT us Leandra Og MD LAB BLOOD ORDERABLES F inal Result [facility] [address] [place] [facility]. [address] * HIV 1+2 Antibody/Antigen with Reflex (10/25/2024 10:17 PM EDT) HIV 1+2 AB/AGN Nonreactive Nonreactive 10/25/2024 11:03 PM EDT [facility] Serum 10/25/2024 10:1 7 PM EDT 10/25/2024 10:16 PM EDT Narrative [facility] - 10/25/2024 11:03 PM EDT \HIVRNR us Leandra Og MD LAB BLOOD ORDERABLES F inal Result Performing Organization Address City/[facility]/ZIP Co de Phone Number [facility] [address] [employer] [facility]. [address] * Hepatitis B Core Antibody (10/25/2024 10:17 PM EDT) Hep B Core Total Ab Nonreactive Nonreactive 10/25/2024 11:07 PM EDT [facility] Comment:Health Department no tified [...] MD LAB BLOOD ORDERABLES F inal Result [facility] [address] [facility]. [address] * Hepatitis C Antibody (10/25/2024 10:17 PM EDT) HCV Ab Nonreactive Nonreactive 10/25/2024 11:16 PM EDT [facility] Comment:Health Department no tified in accordance with reportable infectious disease guidelines. Serum 10/25/2024 10:1 7 PM EDT 10/25/2024 10:17 PM EDT Narrative [facility] - 10/25/2024 11:16 PM EDT Antibodies to HCV not detected; does not exclude the possibility of exposure to HCV. Leandra Og MD LAB BLOOD ORDERABLES F inal Result Performing Organization Address City/[facility]/ZIP Co de Phone Number [facility] [address] [place] [address]. [address] * (ABNORMAL) Hepatitis B Surface Antibody, Quantitati (10/25/2024 10:17 PM EDT) HBSAB NUMBER 10.70(H) 0.00 - 9.99 mIU/mL 10/25/2024 11:52 PM EDT [facility] Hep B S Ab Equivocal (A) Nonreactive 10/25/2024 11:52 PM EDT [facility] Serum 10/25/2024 10:1 7 PM EDT 10/25/2024 10:17 PM EDT Leandra Og MD LAB BLOOD ORDERABLES F inal Result [facility] [address] [facility] * Hepatitis B surface antigen (10/25/2024 10:17 PM EDT) Hep B Surface Ag Nonreactive Nonreactive 10/25/2024 11:12 PM EDT [facility] Comment:Health Department no tified in accordance with reportable infectious disease guidelines. Serum 10/25/2024 10:1 7 PM EDT 10/25/2024 10:17 PM EDT Narrative [facility] - 10/25/2024 11:12 PM EDT Specimen is considered negative for HBsAg. us Leandra Og MD LAB BLOOD ORDERABLES F inal Result Performing Organization Address City/[facility] Co de Phone Number [facility] [address] * Hepatitis A Antibody Total (10/25/2024 10:17 PM EDT) Pathologist [facility] Anti-HAV Total (IgG + IgM) Nonreactive 10/25/2024 11:13 PM EDT [facility] Serum 10/25/2024 10:1 7 PM EDT 10/25/2024 10:17 PM EDT [facility] - 10/25/2024 11:13 PM EDT HAV antibodies not detected us Leandra Og MD LAB BLOOD ORDERABLES F inal Result Performing Organization Address [facility] de Phone Number [facility] [address] [facility] * (ABNORMAL) Hepatic Function Panel (10/25/2024 10:17 PM EDT) Pathologist [facility] Total Bilirubin 9.1(H) 0.0 - 1.5 mg/dL 10/25/2024 10:47 PM EDT [facility] Bilirubin, Direct 4.58(H) 0.00 - 0.40 mg/dL 10/25/2024 10:47 PM EDT [facility] AST 51(H) 13 - 39 U/L 10/25/2024 10:47 PM EDT [facility] ALT 23 7 - 52 U/L 10/25/2024 10:47 PM EDT [facility] Alkaline Phosphatase 144(H) 36 - 125 U/L 10/25/2024 10:47 PM EDT [facility] Total Protein 5.5(L) 6.4 - 8.9 g/dL 10/25/2024 10:47 PM EDT [facility] Albumin 3.5 3.5 - 5.7 g/dL 10/25/2024 10:47 PM EDT [facility] Bilirubin, Indirect 4.52(H) 0.00 - 1.10 mg/dL 10/25/2024 10:47 PM EDT [facility] Plasma 10/25/2024 10:1 7 PM EDT 10/25/2024 10:17 PM EDT us Leandra Og MD LAB BLOOD ORDERABLES F inal Result [facility] [address] [place], [place] [address] * (ABNORMAL) Renal Function Panel w/EGFR (10/25/2024 10:17 PM EDT) Sodium 137 133 - 146 mmol/L 10/25/2024 10:47 PM EDT [facility] Potassium 2.1(LL) 3.5 - 5.3 mmol/L 10/25/2024 10:47 PM EDT [facility] Comment:Critical Result K:2. 1 Called to and read back by: ALICIA CARCAMO RN at: 10/25/2024 22:47:45 by:NANCY Chloride 100 98 - 110 mmol/L 10/25/2024 10:47 PM EDT [facility] CO2 20(L) 21 - 33 mmol/L 10/25/2024 10:47 PM EDT [facility] Anion Gap 17(H) 3 - 16 mmol/L 10/25/2024 10:47 PM EDT [facility] BUN 74(H) 7 - 25 mg/dL 10/25/2024 10:47 PM EDT [facility] Creatinine 3.87(H) 0.60 - 1.30 mg/dL 10/25/2024 10:47 PM EDT [facility] Glucose 114(H) 70 - 100 mg/dL 10/25/2024 10:47 PM EDT [facility] Calcium 9.3 8.6 - 10.3 mg/dL 10/25/2024 10:47 PM EDT [facility] Phosphorus 5.9(H) 2.1 - 4.7 mg/dL 10/25/2024 10:47 PM EDT [facility] Albumin 3.5 3.5 - 5.7 g/dL 10/25/2024 10:47 PM EDT [facility] Osmolality, Calculated 307(H) 278 - 305 mOsm/kg 10/25/2024 10:47 PM EDT [facility] EGFR 19 10/25/2024 10:47 PM EDT [facility] Comment:As of 2021, the [...] ORDERABLES F inal Result Performing Organization Address [facility]/ZIP Co de Phone Number [facility] [address] [facility] * (ABNORMAL) APTT, NO ANTICOAGULANT (10/25/2024 10:17 PM EDT) aPTT 41.7(H) 25.5 - 35.0 seconds 10/25/2024 10:36 PM EDT [facility] Plasma 10/25/2024 10:1 7 PM EDT 10/25/2024 10:17 PM EDT Leandra Og MD LAB BLOOD ORDERABLES F inal Result Performing Organization Address City/[facility]/ZIP Co de Phone Number [facility] [address] [facility] * (ABNORMAL) Protime-INR (10/25/2024 10:17 [...] MD LAB BLOOD ORDERABLES F inal Result [facility] [address] * (ABNORMAL) Differential (10/25/2024 10:17 PM EDT) Pathologist [facility] Differential Comments See Note 10/25/2024 10:54 PM EDT [facility] Comment: _Platelets Appear Decreased _Platelet Morphology Normal Scan Result PERFORMED 10/25/2024 10:54 PM EDT [facility] Neutrophils Relative 79.8 40.0 - 80.0 % 10/25/2024 10:54 PM EDT [facility] Lymphocytes Relative 9.6(L) 15.0 - 45.0 % 10/25/2024 10:54 PM EDT [facility] Monocytes Relative 8.9 0.0 - 12.0 % 10/25/2024 10:54 PM EDT [facility] Eosinophils Relative 1.3 0.0 - 8.0 % 10/25/2024 10:54 PM EDT [facility] Basophils Relative 0.4 0.0 - 1.0 % 10/25/2024 10:54 PM EDT [facility] nRBC 0 0 - 0 /100 WBC 10/25/2024 10:54 PM EDT [facility] Neutrophils Absolute 4,948 1,520 - 8,640 /uL 10/25/2024 10:54 PM EDT [facility] Lymphocytes Absolute 595 570 - 4,860 /uL 10/25/2024 10:54 PM EDT [facility] Monocytes Absolute 552 0 - 1,296 /uL 10/25/2024 10:54 PM EDT [facility] Eosinophils Absolute 81 0 - 864 /uL 10/25/2024 10:54 PM EDT [facility] Basophils Absolute 25 0 - 108 /uL 10/25/2024 10:54 PM EDT [facility] PLT Morphology Platelet morphology appears normal 10/25/2024 10:54 PM EDT [facility] Whole Blood 10/25/2024 10:1 7 PM EDT 10/25/2024 10:17 PM EDT us Leandra Og MD LAB BLOOD ORDERABLES F inal Result [facility] [address] * (ABNORMAL) CBC (10/25/2024 10:17 PM EDT) WBC 6.2 3.8 - 10.8 10E3/uL 10/25/2024 10:54 PM EDT [facility] RBC 2.40(L) 4.20 - 5.80 10E6/uL 10/25/2024 10:54 PM EDT [facility] Hemoglobin 8.3(L) 13.2 - 17.1 g/dL 10/25/2024 10:54 PM EDT [facility] Hematocrit 23.7(L) 38.5 - 50.0 % 10/25/2024 10:54 PM EDT [facility] MCV 98.9 80.0 - 100.0 fL 10/25/2024 10:54 PM EDT [facility] MCH 34.6(H) 27.0 - 33.0 pg 10/25/2024 10:54 PM EDT [facility] MCHC 35.0 32.0 - 36.0 g/dL 10/25/2024 10:54 PM EDT [facility] RDW 17.8(H) 11.0 - 15.0 % 10/25/2024 10:54 PM EDT [facility] Platelets 56(L) 140 - 400 10E3/uL 10/25/2024 10:54 PM EDT [facility] Comment: Specimen checked for clots. None detected. Slide Reviewed for PLT Clumps. None Seen. Platelet Estimate Decreased 10/25/2024 10:54 PM EDT [facility] MPV 8.1 7.5 - 11.5 fL 10/25/2024 10:54 PM EDT [facility] Whole Blood 10/25/2024 10:1 7 PM EDT 10/25/2024 10:17 PM EDT Narrative [facility] - 10/25/2024 10:54 PM EDT Peripheral blood smear was scanned per review criteria approved by the laboratory medical officer. Leandra Og MD LAB BLOOD ORDERABLES F inal Result Performing Organization Address [facility] Co de Phone Number [facility] [address] [place] [address] * Donor Specific Antibody (DSA) (10/25/2024 10:00 PM EDT) AntiDonor Antibodies The request and specimen(s) for this test have been received and transported to the [facility] [place] at [address] [place] [address]. The [facility] will report results directly to the client. 10/25/2024 10:20 PM EDT [facility] Comment:Testing performed by [facility], [facility], [address] [place] [address]. The [facility] report has been forwarded to the appropriate ordering location. Please refer to this report for patient results. Serum 10/25/2024 10:0 0 PM EDT 10/25/2024 10:20 PM EDT Leandra Og MD LAB BLOOD ORDERABLES F inal Result Performing Organization Address [facility] Co de Phone Number [facility] [address] [place] [address] * (ABNORMAL) Venous Blood Gas, Line/Syringe (10/25/2024 10:00 PM EDT) PH-Line Draw 7.38 7.32 - 7.42 10/25/2024 10:08 PM EDT [facility] PCO2-Line Draw 33(L) 41 - 51 mm Hg 10/25/2024 10:08 PM EDT [facility] PO2-Line Draw 33 25 - 40 mm Hg 10/25/2024 10:08 PM EDT [facility] HCO3-Line Draw 20(L) 24 - 28 mmol/L 10/25/2024 10:08 PM EDT [facility] CO2 Content-Line Draw 21(L) 25 - 29 mmol/L 10/25/2024 10:08 PM EDT [facility] Base Excess-Line Draw -5.0(L) -2.0 - 3.0 mmol/L 10/25/2024 10:08 PM EDT [facility] %HBO2-Line Draw 53.8 40.0 - 70.0 % 10/25/2024 10:08 PM EDT [facility] Carboxyhgb-Ludivina e Draw 1.9 % 10/25/2024 10:08 PM EDT [facility] Comment: CARBOXYHEMOGLOBIN (CO) REFERENCE RANGES: Non-Smokers: <2 % Smokers: <8 % TOXIC: >20 % Methemoglobin- Line Draw 0.2 0.0 - 1.5 % 10/25/2024 10:08 PM EDT [facility] Reduced Hemoglobin-Ludivina e Draw 44.1(H) 0.0 - 5.0 % 10/25/2024 10:08 PM EDT [facility] Venous, Line Draw 10/25/2024 10:00 PM EDT 10/25/2024 10:04 PM EDT us Leandra Og MD LAB BLOOD ORDERABLES F inal Result [facility] [address] [place] [address], [facility] * (ABNORMAL) POC Glucose Monitoring Device (10/25/2024 9:56 PM EDT) POC Glucose Monitoring Device 103(H) 70 - 100 mg/dL 10/25/2024 9:58 PM EDT [facility] Blood 10/25/2024 9:56 PM EDT 10/25/2024 9:57 PM EDT Semaj Mcnair III, MD POINT OF CARE TEST ORDERABLES Final Result Performing Organization Address City/[facility]/ZIP Co de Phone Number [facility] [address] * ECG 12 lead (MUSE) (10/25/2024 9:34 PM EDT) 10/25/2024 9:34 PM EDT Narrative MUSE - 10/27/2024 10:08 AM EDT Ventricular Rate: 97 BPM Atrial Rate: 86 BPM QRS Duration: 106 ms QT: 532 ms QTc: 675 ms P Montgomery: 38 degrees R Montgomery: -29 degrees T Montgomery: 32 degrees Diagnosis Line: Critical Test Result: Long QTc , AV Block ^ SINUS RHYTHM WITH PREMATURE VENTRICULAR COMPLEXES ^ PROLONGED QT ^ NONSPECIFIC ST AND T WAVE CHANGES ^ ABNORMAL ECG ^ ^ Confirmed by MD HA, [facility] ([id number]) on 10/27/2024 10:08:26 AM Leandra Og MD ECG ORDERABLES Final Result Performing Organization Address [facility] Co de Phone Number MUSE * Hepatitis C RNA, Quant Reflex to Genotyp (10/25/2024 8:18 PM EDT) Pathologist [facility] Units Not Detected IU/mL 10/27/2024 11:03 AM EDT [facility] Comment:Test methodology for HCV RNA quantification is an FDA-approved nucleic acid amplification assay. The Lower Limit of Quantitation (LLOQ) is 15 IU/mL. The linear range of the assay is 15-100,000,000 IU/mL. The Limit of Detection (LoD) is 12.0 IU/mL for EDTA plasma. The reference range is Not Detected. IU log10 See Note log 10 IU/mL 10/27/2024 11:03 AM EDT [facility] Comment:HCV RNA not detected . Plasma 10/25/2024 8:18 PM EDT 10/25/2024 10:27 PM EDT Leandra Og MD LAB BLOOD ORDERABLES F inal Result [facility] [address] [place] [address], [facility] * Urinalysis w/Rfl to Microscopic (10/25/2024 8:18 PM EDT) Color, UA Yellow Yellow,Straw 10/25/2024 10:38 PM EDT [facility] Clarity, UA Clear Clear 10/25/2024 10:38 PM EDT [facility] Specific [place], UA 1.010 1.005 - 1.035 10/25/2024 10:38 PM EDT [facility] pH, UA 6.0 5.0 - 8.0 10/25/2024 10:38 PM EDT [facility] Protein, UA Negative Negative mg/dL 10/25/2024 10:38 PM EDT [facility] Glucose, UA Negative Negative mg/dL 10/25/2024 10:38 PM EDT [facility] Ketones, UA Negative Negative mg/dL 10/25/2024 10:38 PM EDT [facility] Bilirubin, UA Negative Negative 10/25/2024 10:38 PM EDT [facility] Blood, UA Negative Negative 10/25/2024 10:38 PM EDT [facility] Nitrite, UA Negative Negative 10/25/2024 10:38 PM EDT [facility] Urobilinogen, UA <2.0 0.2 - 1.9 mg/dL 10/25/2024 10:38 PM EDT [facility] Leukocyte Esterase, UA Negative Negative 10/25/2024 10:38 PM EDT [facility] Urine 10/25/2024 8:18 PM EDT 10/25/2024 10:35 PM EDT Narrative [facility] - 10/25/2024 10:38 PM EDT Microscopic testing is not performed when the dipstick is negative for blood, leukocyte, protein and nitrite. us Leandra Og MD URINE ORDERABLES Final Result [facility] [address] [facility] * Toxoplasma gondii antibody, IgG (10/25/2024 8:18 PM EDT) Toxoplasma Gondii IgG <3.0 0.0 - 7.1 IU/mL 10/27/2024 7:55 AM EDT [facility] Comment: Negative <7.2 Equivocal 7.2 - 8.7 Positive >8.7 Serum 10/25/2024 8:18 PM EDT 10/27/2024 8:06 AM EDT [facility] - 10/27/2024 8:06 AM EDT PERFORMED AT: [facility] [id number] TOOLING MANAGER: Bassam Khalil, PhD PHONE: [phone] us Leandra Og MD LAB BLOOD ORDERABLES F inal Result Performing Organization Address City/[facility]/ZIP Co de Phone Number [facility] [address] [facility] * Antibody Screen (10/25/2024 7:46 PM EDT) [facility] Antibody Screen Negative 10/25/2024 10:41 PM EDT [facility] Blood 10/25/2024 7:46 PM EDT 10/25/2024 9:54 PM EDT [facility] - 10/25/2024 10:44 PM EDT Testing performed by [facility] Transfusion Service Ben Blake MD BLOOD BANK TEST ORDERABLES Fi nal Result [facility] [address] [facility] * ABO/Rh (10/25/2024 7:46 PM EDT) ABO Grouping O 10/25/2024 10:23 PM EDT [facility] Rh Type Positive 10/25/2024 10:23 PM EDT [facility] Blood 10/25/2024 7:46 PM EDT 10/25/2024 9:54 PM EDT us Ben Blake MD BLOOD BANK TEST ORDERABLES Fi nal Result [facility] [address] [place] [address], [facility] * (ABNORMAL) TEG-Standard Global Hemostasis (Rapid TEG with Heparin Effect, Contains a Baseline TEG) (10/25/2024 7:46 PM EDT) Citrated Kaolin Reaction Time (TEGHEPARINASE) 8.4 4.6 - 9.1 minutes 10/25/2024 10:49 PM EDT [facility] Citrated Rapid Teg Maximum Amplitude (TEGHEPARINASE) <40.0(L) 52.0 - 70.0 mm 10/25/2024 10:49 PM EDT [facility] Citrated Functional Fibrinogen Maximum Amplitude (TEGHEPARINASE) 6.7(L) 15.0 - 32.0 mm 10/25/2024 10:49 PM EDT [facility] Citrated Kaolin W/Heparinase Reaction Time (TEGHEPARINASE) 8.1 4.3 - 8.3 minutes 10/25/2024 10:49 PM EDT [facility] Citrated Kaolin K-Time (TEGHEPARINASE) 2.5(A) 0.8 - 2.1 minutes 10/25/2024 10:49 PM EDT [facility] Citrated Kaolin Angle (TEGHEPARINASE) 65.7(A) 63.0 - 78.0 degrees 10/25/2024 10:49 PM EDT [facility] Citrated Kaolin Maximum Amplitude (TEGHEPARINASE) <40.0(L) 52.0 - 69.0 mm 10/25/2024 10:49 PM EDT [facility] Citrated Functional Fibrinogen- Fibrinogen Level (TEGHEPARINASE) 159.5(L) 278.0 - 581.0 mg/dL 10/25/2024 10:49 PM EDT [facility] Whole Blood (Citrate) 10/25/2024 7:46 PM EDT 10/25/2024 10:15 PM EDT us Ben Blake MD LAB BLOOD ORDERABLES Final Re sult [facility] [address] [address], [facility] documented in this encounter Visit [...] Provider: Paulette Flannery, ЮЛИЯ)2119 (Given - Provider: Yovnne Gale, ЮЛИЯ) 0543 (Given - Provider: Yvonne [...] 1 dose 1057 (New Bag - Provider: Paueltte Flannery RN) melatonin tablet Tab 6 mg [...] Paulette Flannery RN)2056 (Given - Provider: Yvonne Gael RN) 1019 (Given - Provider: Paulette Flannery [...] documented as of this encounter Care Teams [facility] [employer] Former Relationship Specialty Start Date End Date Enedina Mcguire NP [address] [place] [address] PCP - General Internal Medicine 10/05/24 documented as of this encounter
--- OUTSIDE RECORDS SUMMARY | 2024-10-25 22:54 | XMS_ITS | Encounter Summary ---
Author Organization [facility] Address [facility] [place] [address] Care Team Providers Care Landscape Horticulture Instructor Name Role Phone Enedina Mcguire NP Primary Care Provider [phone] Source Comments This information has been disclosed [...] release of HIV test results or diagnoses. [id number] Reason for Visit * Auth/Cert (Routine) Specialty Diagnoses / Procedures Referred By Shane t Referred To Contact Surgical Intensive Care Diagnoses Liver transplant recipient (CMS-HCC) cirrhosis and CKD Procedures LIVER-KIDNEY TRANSPLANT [facility] SICU [address] [place] [address] Phone: tel: Referral ID Status Reason Start Date Expiration Date Visits Re quested Visits Authorized [id number] 1 1 Encounter Details Date Type Department Care Team (Late st Contact Info) Description 10/25/2024 10:54 PM EDT Anesthesia Event [facility] PERIOP [address] [place] [address] Eber Quinones MD [address] [place] [address] Maureen Fleming MD [address] [place] [address] Anesthesia Record Procedure Summary Procedure Name Responsible [...] sodium chloride 0.9% 1 00 mL IVPB (Yxiu1Jse) 4 g cefTRIAXone (ROCEPHIN) 2 g in sodium chl oride 0.9 % 100 mL Fuiv3Zhm 8 g fluconazole (DIFLUCAN) 200 mg in [...] Sounds Confirmed 10/26/24 0622 by Martha Phillip, CONTROL SUPERVISOR 10/27/24 1310 by Chinedu Almeida, RONALDO documented [...] the past 12 months has th e [employer], oil, or water [employer] threatened to shut off services in your [...] any time in the past 12 m [facility], were you homeless [...] Blake MD - 10/25/2024 7:26 PM EDT [facility] DEPARTMENT OF ANESTHESIOLOGY PRE-PROCEDURAL EVALUATION Julien Anderson [...] dysrhythmias, angina, orthopnea. ECG reviewed. ROS comment: [facility] 10/14/24: IMPRESSIONS: - Patent coronary arteries without [...] is no recent study available for direct uuyr-ie-eicm comparison. Stress echo 10/09/24: - Left ventricle: [...] at baseline or with provocation, shows no swvxe-in-cxpj atrial level shunt. - Pulmonary arteries: Systolic [...] Low Risk (07/09/2024) Received from [facility] Overall Financial Resource Strain (CARDIA) Difficulty [...] No Physical Activity: Unknown (07/14/2024) Received from [facility] Exercise Vital Sign Days of Exercise per Week: Patient unable to answer Minutes of Exercise per Session: Not on file Stress: Patient Unable To Answer (07/14/2024) Received from [facility] [place] of Occupational Health - Occupational Stress Questionnaire Feeling of Stress : Patient unable to answer Social Connections: Patient Unable To Answer (07/14/2024) Received from [facility] Social Connection and Isolation Panel [...] times a day. naloxone (NARCAN) 4 mg/actuation [place] Apply 1 spray in one nostril if [...] MD - 10/25/2024 11:54 PM EDTAssociated Order(s): [place] Emily Cath [place] Emily Cath Date/Time: 10/25/2024 11:13 PM Performed [...] Hospital Encounter [facility] ENDOSCOPY [address] [place] [address] Chris Orosco MD [address] [place] [phone] 12/05/2024 8:01 AM EDT - 12/05/2024 8:31 AM EDT Surgery [facility] ENDOSCOPY [address] [place] [phone] Chris Orosco MD [address] [place] [phone] EGD Scheduled Procedures Name Priority Associated Diagnoses [...] EDT Ben Blake MD 10/26/2024 7:45 PM [place] Emily Cath Date/Time: 10/25/2024 11:13 PM Performed [...] cirrhosis type ([facility]) * Transfer of Care - Maureen Fleming [...] 0659 10/26/24 07 - 10/27/24 0659 Shift 0693-2519 2367-8264 8532-3378 24 Hour Total 7288-0618 6191-9121 2017-4630 24 Hour Total INTAKE I.V. 9100(74.3) 9100(74.3) [...] in sodium chloride 0.9 % 100 mL Kgjb6Pns) 100 100 Volume (mL) (AMPicillin 2 g in sodium chloride 0.9% 100 mL IVPB (Lbec3Jhb)) 200 200 Volume (mL) (albumin human bottle 5%) 1000 1000 Volume (mL) (potassium chloride (KCl)/Sterile water 100 mL 10 mEq/100 mL IVPB) 200 200 Shift Total(mL/kg) 47733(151.9) 53724(151.9) OUTPUT Urine 150(0.2) 1375 1525 Urine 150 [...] in sodium chloride 0.9% 100 mL IVPB (Iftm8Kni) 2 g, Intravenous, at 200 mL/hr, Every 6 hours, First dose on 10/26/24 at 0000, Use Lngh3Djx Adapter - Mix Thoroughly Before Administration Bolus [...] in sodium chloride 0.9 % 100 mL Tvwl5Jhc 2 g, Intravenous, Administer over 30 Minutes, Once, Use Juim5Nyi Adapter - Mix Thoroughly Before Administration, Indication? [...] documented as of this encounter Care Teams Landscape Horticulture Instructor Relationship Specialty Start Date End Date Enedina Mcguire NP [address] [place] [address] PCP - General Internal Medicine 10/05/24 documented as of this encounter
--- OUTSIDE RECORDS SUMMARY | 2024-10-27 02:00 | XMS_ITS | Encounter Summary ---
Author Organization [facility] Address [address] [place] [address] Care Team Providers Care Ticket Manager Name Role Phone Enedina Mcguire NP Primary Care Provider [phone] Source Comments This information has been disclosed [...] release of HIV test results or diagnoses. [id number] Reason for Visit * Auth/Cert (Routine) Specialty Diagnoses / Procedures Referred By Shane hernadez Referred To Contact Surgical Intensive Care Diagnoses Liver transplant recipient (CMS-HCC) cirrhosis and CKD Procedures LIVER-KIDNEY TRANSPLANT [facility] S[facility] [address] [place] [address] Phone: tel: Referral ID Status Reason Start Date Expiration Date Visits Re quested Visits Authorized [id number] 1 1 Encounter Details Date Type Department Care Team (Late st Contact Info) Description 10/27/2024 2:00 AM EDT - 10/27/2024 6:54 AM EDT Surgery [facility] PERIOP [address] [place] [address] Semaj Mcnair III, MD [address] [facility] [address] Transplant [place] [address] Donor Kidney Transplant , Back [...] Recorded In the past 12 months has [employer], oil, or water Zeer threatened to shut off services in your [...] Plata MD - 11/02/2024 2:04 PM EDT [facility] Liver Transplant Surgical Service Inpatient Discharge Summary Patient: Blair Gilbert : 1985 [facility]: [id number] Date of Admission: 10/25/2024 Date of Discharge: [...] Case IDs Date Procedure Surgeon Location Status [id number] 10/25/24 LIVER TRANSPLANT Semaj Mcnair III, MD OR Comp [id number] 10/27/24 Donor Kidney Transplant , Back Bench [...] EXAM: US ABDOMEN LIMITED EXAM: US DUPLEX VSX-YKQWFE-YVIKXSI COMPLETE INDICATION: Post-op liver transplant COMPARISON: None [...] visualized secondary to poor acoustic windows. The togiak right kidney measures 11.6 cm in length. [...] 30 tablet Refills: 0 naloxone 4 mg/actuation [place] Commonly known as: NARCAN Apply 1 spray [...] Your Medications These medications were sent to [facility] NAA Baum [address] Mya [address] [place] [address] mycophenolate 250 mg capsule tacrolimus 1 MG capsule These medications were sent to [facility] [address] [place] [address] Hours: Sunday - Sunday: 8:00AM - 6:00PM [...] Case IDs Date Procedure Surgeon Location Status [id number] 10/25/24 LIVER TRANSPLANT Semaj Mcnair III, MD OR Comp [id number] 10/27/24 Donor Kidney Transplant , Back Bench [...] discharge. NEURO/PAIN - Patient placed on Dilaudid GAMES MANAGER once extubated, then transitioned to multi-modal pain [...] Ureteral stentis scheduled for removal on 11/25 [facility] - PT/OT evaluated patient and recommended Home PT/OT, outpatient PT/OT only available. ENDO - A1C is 5.0. Pt was not on diabetic regimen prior to arrival. Patient developed steroid-induced hyperglycemia 2/2 steroid regimen. Discharged home on the following regimen: HDSSI. Patient met w/ life educator prior to discharge. HEME - Post-operatively, [...] Patient and family received post-transplant education from coding coordinator as well as medication teaching from [...] 11/04/2024 8:40 AM LTRA SURGERY, [facility] LTRA HOX HOX 11/04/2024 10:10 AM LTRA HEPATORENAL HOX LTRA HOX HOX 11/25/2024 9:00 AM NAA Merida [facility] URO MAB MAB 12/02/2024 2:00 PM Bossman Huffman MD [facility] MARIANGEL MAB MAB 02/25/2025 10:50 AM Bruno Gonzalez MD KTSP HOX HOX Kenyetta Hartman, MS-4 [facility] SHAY PLATA MD 11/02/2024 12:50 PM [...] Instructions: Call post-liver transplant clinic with questions [phone] or call [facility] at [phone] and ask for the liver coding coordinator questioned documents examiner if you experience any of the following: [...] 11/04/2024 8:40 AM LTRA SURGERY, [facility] LTRA HOX HOX 11/04/2024 10:10 AM LTRA HEPATORENAL [facility] LTRA HOX HOX 11/25/2024 9:00 AM NAA Merida [facility] URO MAB MAB 12/02/2024 2:00 PM [...] 10/27/2024 blood-glucose meter (TRUE METRIX GLUCOSE METER) [facility] Use to test blood sugar up to [...] AM EDT 10/27/2024 lancets (ACCU-CHEK SOFTCLIX LANCETS) [facility] Use to test blood sugar up to [...] capsule 5 10/27/2024 naloxone (NARCAN) 4 mg/actuation [place] Apply 1 spray in one nostril if [...] tacrolimus and mycophenolate which were dispensed through [facility] per insurance requirements. Patient's confirms [...] fair Expected caregiver involvement?: is primary med senior online marketing manager Need for additional education in clinic?: routine reinforcement only Future medications to be obtained from, if known (select one): Tac/MMF to be filled from [facility] Financial concerns (if any): no Discharge Medication List as of 11/02/2024 5:17 PM START taking these medications Details acetaminophen (TYLENOL) 325 MG tablet Take 3 tablets (975 mg total) by mouth every 8 hours., Starting 10/27/2024, Normal, Disp-200 tablet, R-0 alcohol swabs PadM Use as instructed., Normal, Disp-200 each, R-1 blood sugar diagnostic (GLUCOSE BLOOD) Str Use to test blood sugar up to 4 times a day., Normal, Disp-100 strip, R-11 blood-glucose meter (TRUE METRIX GLUCOSE METER) [facility] Use to test blood sugar up to [...] Disp-15 mL, R-2 lancets (ACCU-CHEK SOFTCLIX LANCETS) [facility] Use to test blood sugar up to [...] Disp-30 tablet, R-0 naloxone (NARCAN) 4 mg/actuation [place] Apply 1 spray in one nostril if [...] Solid Organ Transplant Clinical Specialist Contact via [employer] Secure Chat * Froylan Hendrickson MD - 11/01/2024 8:04 AM EDT Liver Transplant Surgery Progress Note Name: Blair Gilbert CSN: [id number] Date: 11/01/2024 8:06 AM OR Date: 10/25/2024 [...] at 10/31/2024 4:38 PM EDT US Duplex Zlu-Vgb-Cluwkwq Comp Result Date: 10/31/2024 IMPRESSION: RIGHT UPPER [...] - 10/27/2024. Plan: Liver transplant recipient ([facility]) [Z94.4] Neuro: - Multimodal pain control: [...] 3:24 PM EDT TXP - Follow Up [facility] Medical Nutrition Therapy Transplant Brief [...] Boost VHC- very high calorie protein supplement ([facility] only) Pertinent Information: Pt seen [...] Based on DBW of 93.1 kg Kcals/day: 9557-9498 (25-30 kcals/kg) Protein g/day: 140-190 (1.5-2.0 g/kg) [...] Dietitian - Solid Organ Transplant Contact via Inn[employer] Chat * Keon Dobson - 10/31/2024 2:35 PM EDT [facility] Spiritual Care Volunteer Visit PATIENT NAME: Blair Gilbert ROOM:[id number]/[id number] Confucianist Affiliation:Anabaptism Blair Gilbert was visited by a volunteer today. No needs requiring a visit from a staff prepress technician were expressed at that time. Care Provided: Communion, Prayer/ blessing Please page our service at [phone] as needs arise for patient and/or family. Fr Dean Dobson Anabaptism prepress technician Spiritual Care Dept * Brittany Horne [...] transplant recipient (CMS-HCC) [Z94.4] Date: 10/31/2024 Room: [facility]/80 Reviewed Pertinent hospital course: Yes Hospital Course [...] issued by OT: Long-handled sponge, Sock aid, Highway Commissioner, Other (comment) Equipment issued by OT comment: leg position classifier Assessment Assessment: Decreased ADL status, Decreased IADLs, [...] IADL task (Goal met and continued 10/31) Prison Goal : Pt will complete bathing assessment [...] hyperlipidemia 07/26/2024 Renal cell carcinoma ([facility]) Thrombocytopenia ([facility]) Thyroid disease Past Surgical History Past Surgical [...] Problem List Diagnosis Decompensated cirrhosis ([facility]) Acute kidney injury superimposed on CKD ([facility]) Alcohol use disorder Metabolic encephalopathy Hypertension Other hyperlipidemia Thrombocytopenia ([facility]) Renal mass, left Abdominal pain Hypokalemia CKD (chronic kidney disease) stage 4, GFR 15-29 ml/min ([facility]) Metabolic acidosis with normal anion [...] 0659 10/31/24 07 - 11/01/24 0659 Shift 0637-2313 9478-5415 1566-0034 24 Hour Total 5268-9592 0419-0356 8934-7795 24 Hour Total INTAKE P.O. 240 240 P.O. 240 240 Shift Total(mL/kg) 240(1.9) 240(1.9) OUTPUT Urine(mL/kg/hr) 1850(1.8) 600(0.6) 600(0.6) 3050(1) 350 350 Urine 800 378 120 0526 350 350 Urine Occurrence 2 x 2 [...] with further concerns Lavell Kramer MD 10/31/[phone] * Priti Geiger CNP - 10/31/2024 10:06 AM EDT Liver Transplant Surgery Progress Note Name: Blair Gilbert CSN: [id number] Date: 10/31/2024 10:06 AM OR Date: 10/25/2024 [...] 10/28/24 1109 LACTATE 0.3* Imaging US Duplex Wnu-Ehm-Sxgflfl Comp Result Date: 10/28/2024 IMPRESSION: ABDOMINAL ULTRASOUND [...] 10/25/2024 - 10/27/2024. Plan: Liver transplant recipient (CMS-HCC) [Z94.4] Neuro: - Multimodal pain control: tylenol, [...] Transplant Nephrology Progress Note Patient: Blair Gilbert [id number] 8025/[id number] Date of Admit: 10/25/2024. 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 Lauren Santos, DNP, FUEL ISLAND ATTENDANT, AFFILIATE MARKETING SPECIALIST- Transplant Nephrology [phone] Preferred contact: secure chat The HPI, ROS, [...] 0659 10/30/24 07 - 10/31/24 0659 Shift 9832-7452 7400-9136 7321-9349 24 Hour Total 8889-1779 4752-9849 6814-3329 24 Hour Total INTAKE P.O. 240 240 480 P.O. 240 240 480 IV Piggyback 87.2 87.2 Volume (mL) (micafungin (MYCAMINE) 50 mg in sodium chloride 0.9 % 100 mL Nvlx6Vlr IVPB) 87.2 87.2 Shift Total(mL/kg) 240(2) 327.2(2.7) 567.2(4.4) OUTPUT Urine(mL/kg/hr) 600(0.6) 1175(1.2) 450(0.4) 2225(0.7) 550 550 Output (mL) (IUC (Berkowitz) Triple-lumen (3-Way) 18 Fr.) 600 8479 300 2595 550 550 Drains 175 245 100 520 [...] month of prophylaxis Lavell Kramer MD 10/30/[phone] * Priti Geiger CNP - 10/30/2024 10:36 AM EDT Liver Transplant Surgery Progress Note Name: Blair Gilbert CSN: [id number] Date: 10/30/2024 10:37 AM OR Date: 10/25/2024 [...] 1109 LACTATE 0.5 0.3* Imaging US Duplex Nvn-Nwn-Etpcipc Comp Result Date: 10/28/2024 IMPRESSION: ABDOMINAL ULTRASOUND [...] - 10/27/2024. Plan: Liver transplant recipient ([facility]) [Z94.4] Neuro: - Multimodal pain control: [...] Transplant Nephrology Progress Note Patient: Blair Gilbert [id number] 8025/U8025 Date of Admit: 10/25/2024. 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 Lauren Santos, DNP, FUEL ISLAND ATTENDANT, AFFILIATE MARKETING SPECIALIST- Transplant Nephrology [phone] Preferred contact: secure chat The HPI, ROS, [...] Pt seen, examined, and discussed with SUPERINTENDENT LANDFILL [employer]PERATIONS on 10/30/2024. reviewed the chart including the labs and imaging studies. My additional comments below. 39 y.o. 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 Last BM Date: (manager trust). Admit Weight: 270 lb (122.5 kg) Current [...] Based on DBW of 93.1 kg Kcals/day: 7804-9890 (25-30 kcals/kg) Protein g/day: 140-190 (1.5-2.0 g/kg) [...] Dietitian - Solid Organ Transplant Contact via [employer] Chat * Anita Carrascoradha, PT - 10/29/2024 2:04 PM EDT Physical Therapy Initial Assessment Name: Blair Gilbert : 1985 Attending Physician: Semaj Mcnair III, MD Admission Diagnosis: Liver transplant recipient (CMS-HCC) [Z94.4] Date: 10/29/2024 Room: [place] [address] [address] Reviewed Pertinent hospital course: Yes Hospital Course [...] with functional mobility at: 10 or less Oxide Furnace Tender Goal : Pt will ambulate 250' mod [...] hyperlipidemia 07/26/2024 Renal cell carcinoma ([facility]) Thrombocytopenia ([facility]) Thyroid disease Past Surgical History Past [...] kidney injury superimposed on CKD ([facility]) Alcohol use disorder Metabolic encephalopathy Hypertension Other hyperlipidemia Thrombocytopenia ([facility]) Renal mass, left Abdominal pain Hypokalemia CKD (chronic kidney disease) stage 4, GFR 15-29 ml/min ([facility]) Metabolic acidosis with normal anion gap and bicarbonate losses GERD (gastroesophageal reflux disease) Hypothyroidism Itching Anemia BRBPR (bright red blood per rectum) SBP (spontaneous bacterial peritonitis) ([facility]) C Diff Diarrhea C. difficile diarrhea Neck pain with history of cervical spinal surgery * Shanel Pabon, OT - 10/29/2024 1:23 PM EDT Occupational Therapy Initial Assessment Name: Blair Gilbert : 1985 Attending Physician: Semaj Mcnair III, MD Admission Diagnosis: Liver transplant recipient ([facility]) [Z94.4] Date: 10/29/2024 Room: [place] [address] [address] Reviewed Pertinent hospital course: Yes Hospital Course [...] Intervention(s): Ambulation/increased activity;Repositioned Therapist reported pain to: animal shelter clerk Oxygen Supplemental Oxygen Supplemental Oxygen: None (Room [...] distance ambulation in prep for IADL task Oxide Furnace Tender Goal : Pt will complete bathing [...] Problem List Diagnosis Decompensated cirrhosis ([facility]) Acute kidney injury superimposed on CKD ([facility]) Alcohol use disorder Metabolic encephalopathy Hypertension Other hyperlipidemia Thrombocytopenia ([facility]) Renal mass, left Abdominal pain [...] Transplant Nephrology Progress Note Patient: Blair Gilbert [id number] SICU-28/[facility]-28 Date of Admit: 10/25/2024. LOS: 4 days. 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 Lauren Santos, [place], FUEL ISLAND ATTENDANT, AFFILIATE MARKETING SPECIALIST- Transplant Nephrology [phone] Preferred contact: secure chat The HPI, ROS, [...] Surgery Progress Note Name: Blair Gilbert CSN: [id number] Date: 10/29/2024 10:08 AM OR Date: 10/25/2024 [...] LACTATE 0.4* 0.5 0.3* Imaging US Duplex Mfa-Wxy-Kpdzsjz Comp Result Date: 10/28/2024 IMPRESSION: ABDOMINAL ULTRASOUND [...] at 10/27/2024 10:38 AM EDT US Duplex Ygr-Mmp-Sryglkh Comp Result Date: 10/27/2024 IMPRESSION: RIGHT UPPER [...] - 10/27/2024. Plan: Liver transplant recipient ([facility]) [Z94.4] Neuro: - Multimodal pain control: [...] Date 10/28/24699 - 10/29/2465810/29/24699 - 10/30/24658 Shift 2193-6307 2274-0154 0845-2305 24 Hour Total 8078-4495 9064-0474 6206-7722 24 Hour Total INTAKE P.O. 240 0 [...] IV infusion) 253.9 374.7 775.6 1404.2 Blood 7981 580 4285 Albumin 750 750 Volume (Transfuse RBC Transfusion Rate: Per dept routine) 310 310 Volume (Transfuse RBC Transfusion Rate: Per dept routine) 271 271 IV Piggyback 918.4 687 74 0872.4 Volume (mL) (micafungin (MYCAMINE) 50 mg in sodium chloride 0.9 % 100 mL Tvlx1Pvu IVPB) 99.9 99.9 Volume (mL) (albumin human [...] month of prophylaxis Lavell Kramer MD 10/29/[phone] * John Moreno MD - 10/29/2024 6:47 AM EDT SURGICAL ICU PROGRESS NOTE 10/29/2024 6:47 AM Name: Blair Gilbert [facility]: [id number] HPI: Blair Gilbert is a 39 y.o. [...] to 4 times a day. DEXCOM G7 CONDENSER TUBE TENDER Misc Use reader as directed. DEXCOM G7 [...] and at bedtime. lancets (ACCU-CHEK SOFTCLIX LANCETS) [facility] Use to test blood sugar up to 4 times a day. methocarbamoL (ROBAXIN) 500 MG tablet Take 1 tablet (500 mg total) by mouth 3 times a day. naloxone (NARCAN) 4 mg/actuation [place] Apply 1 spray in one nostril if [...] 37 37 35 PO2ART 245* 182* 92 JZM3ERB 22 21* 21* BEART -4.2* -4.8* -4.6* [...] at baseline or with provocation, shows no kxfjb-uk-jahx atrial level shunt. - Pulmonary arteries: Systolic [...] Home pantoprazole 40mg daily, continue Last BM: ENERGY SALES BROKER - suppository today Bowel regimen: Miralax today, [...] results for input(s): TEGANGLE , TEGKTIME , NJZEESZA55 , TEGMAXAMPL , TEGRTIME , CBMZ in [...] in sodium chloride 0.9 % 100 mL Udfb3Gmh IVPB 50 mg Every 24 hours 10/27/2024 -- Admin Instructions: PROTECT FROM LIGHT FLUSH LINE w/NSS PRIOR TO ADMINISTRATION Use Gtzd0Oho Adapter - Mix Thoroughly Before Administration Route: [...] BID Continuous Infusions: HYDROmorphone 6 mg/30 mL GAMES MANAGER norepinephrine 4 mcg/min (10/27/24 2318) sodium chloride [...] Intake/Output last 3 shifts: Date 10/27/246[address] - 10/28/2465810/28/24 07 - 10/29/24 0659 Shift 5036-8513 0731-5012 5101-3711 24 Hour Total 8297-6737 3508-2220 7928-1888 24 Hour Total INTAKE P.O. 0 120 [...] in sodium chloride 0.9 % 100 mL Qlfd6Oez IVPB) 100 100 Volume (mL) (albumin human 5%) 126 126 Volume (mL) (potassium chloride (KCl)/Sterile water 50 mL 20 mEq/50 mL IVPB 20 mEq) 100 100 Volume (mL) (AMPicillin 1 g in sodium chloride 0.9% 100 mL IVPB (Hwyg2Phi)) 100.1 57 42.9 200 Volume (mL) (mycophenolate (CELLCEPT) 500 mg in dextrose 5% in water (D5W) 50 mL IVPB) 50 5.3 55.3 Shift Total(mL/kg) 2079.3(17) 1161(9.5) 787.3(6.4) 4027.6(32.9) OUTPUT Urine(mL/kg/hr) 2195(2.2) 1000(1) 900(0.9) 4095(1.4) 490 490 Urine 360 360 Output (mL) (IUC (Berkowitz) Triple-lumen (3-Way) 18 Fr.) 1835 7185 939 3222 490 490 Emesis/NG output 50 50 Drainage [...] month of prophylaxis Lavell Kramer MD 10/28/[phone] * Caron Santos CNP - 10/28/2024 9:00 AM EDT Images from the original note were not included. Transplant Nephrology Progress Note Patient: Blair Gilbert [id number] SICU-28/USIC-28 Date of Admit: 10/25/2024. 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 Lauren Santos, DNP, FUEL ISLAND ATTENDANT, AFFILIATE MARKETING SPECIALIST- Transplant Nephrology [phone] Preferred contact: secure chat The HPI, ROS, [...] Pt seen, examined, and discussed with SUPERINTENDENT [employer]FI[employer] on 10/28/2024. reviewed the chart including the labs and imaging studies. My additional comments below. 39 y.o. 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 S/p SLK 10/25-10/26 Has great UOP 4.2L Aaron Gonzalez MD, MEd, FASN * Shay Plata MD - 10/28/2024 7:41 AM EDT Liver Transplant Surgery Progress Note Name: Blair Gilbert CSN: [id number] Date: 10/28/2024 11:05 AM OR Date: 10/25/2024 - 10/27/2024 Subjective: 1 Day Post-Op Received one unit pRBCs overnight On low dose levo this morning Increasing tachycardia Reports worsening pain, on GAMES MANAGER Tolerated sips of clears No nausea/vomiting, no [...] Oral BID Continuous: HYDROmorphone 6 mg/30 mL GAMES MANAGER norepinephrine Stopped (10/28/24 0637) sodium chloride 0.9 [...] at 10/27/2024 10:38 AM EDT US Duplex Ltv-Nrp-Ebwhfvy Comp Result Date: 10/27/2024 IMPRESSION: RIGHT UPPER [...] - 10/27/2024. Plan: Liver transplant recipient ([facility]) [Z94.4] Neuro: - Multimodal pain control: dilaudid GAMES MANAGER, tylenol, robaxin. PRN dilaudid for breakthrough CV: [...] SCDs DISPO: SICU SHAY PLATA MD, MS4 [facility] Surgery 11:05 AM 10/28/2024 Cosigned by [...] 10/28/2024 6:17 AM Name: Blair Gilbert CSN: [id number] HPI: Blair Gilbert is a 39 y.o. [...] to 4 times a day. DEXCOM G7 CONDENSER TUBE TENDER Misc Use reader as directed. DEXCOM G7 [...] times a day. naloxone (NARCAN) 4 mg/actuation [place]enburg Apply 1 spray in one nostril if [...] Oral BID Continuous: HYDROmorphone 6 mg/30 mL GAMES MANAGER insulin regular in 0.9 % sodium chloride [...] 37 37 35 PO2ART 245* 182* 92 EHY8GBV 22 21* 21* BEART -4.2* -4.8* -4.6* [...] at baseline or with provocation, shows no ssemr-ko-gryw atrial level shunt. - Pulmonary arteries: Systolic [...] while intubated,convert to PO today Last BM: ENERGY SALES BROKER Bowel regimen: Miralax today, hold senna til [...] ml IV Fluids: HYDROmorphone 6 mg/30 mL GAMES MANAGER insulin regular in 0.9 % sodium chloride, [...] no concerns - 3 day berkowitz - de 10/30 - Makes urine at baseline - [...] results for input(s): TEGANGLE , TEGKTIME , BJEBSALO57 , TEGMAXAMPL , TEGRTIME , CBMZ in [...] in sodium chloride 0.9% 100 mL IVPB (Pjtg2Fyu) (Completed) 1 g Every 6 hours scheduled 10/26/2024 10/28/2024 Admin Instructions: Dosage may need to be adjusted for renal dysfunction. Full dose is 1g IV q6h Use Dnly7Nfb Adapter - Mix Thoroughly Before Administration Notes to Pharmacy: On order entry clerk estimated creatinine clearance is 35.9 mL/min [...] in sodium chloride 0.9 % 100 mL Bpbw3Hgi IVPB 50 mg Every 24 hours 10/27/2024 -- Admin Instructions: PROTECT FROM LIGHT FLUSH LINE w/NSS PRIOR TO ADMINISTRATION Use Vsnh3Wrh Adapter - Mix Thoroughly Before Administration Route: [...] the Caprini Risk Score of 10 and [facility] transplant protocol, I recommend discharging on heparin [...] Solid Organ Transplant Clinical Specialist Contact via [employer] Secure Chat Preferred O. [phone] * Chinedu Almeida RRT - 10/27/2024 1:10 [...] Yes MD Order No SBT No Yes [place] Coma Scale > 8 Yes Lab Results Component Value Date PHART 7.36 10/27/2024 PCO2 37 10/27/2024 PO2ART 245 (H) 10/27/2024 FVH8UGB 22 10/27/2024 BEART -4.2 (L) 10/27/2024 RMF6PGV 96.5 10/27/2024 G0HLLQTR 100 10/27/2024 Based on this SBT assessment [...] Surgery Progress Note Name: Blair Gilbert CSN: [id number] Date: 10/27/2024 11:40 AM OR Date: 10/25/2024 - 10/27/2024 Subjective: * Day of Surgery * Remains intubated in SICU Sedated but appropriately nods to questions No acute distress Objective: BP 100/48 Pulse 89 Temp 99 ??F (37.2 ??C) ([place]) Resp 9 Ht 6' 4 (1.93 m) [...] Continuous PRN Recent Labs 10/26/24 1048 10/26/24164110/27/24 001 WBC 17.3* 10.0 5.0 HGB 12.8* 10.5* [...] at 10/27/2024 10:38 AM EDT US Duplex Syc-Xps-Losbqrh Comp Result Date: 10/27/2024 IMPRESSION: RIGHT UPPER [...] Problem List[1] Plan: Liver transplant recipient ([facility]) [Z94.4] Neuro: - Propofol/fentanyl CV: - [...] SQH, SCDs DISPO: SICU KENYETTA HARTMAN, MS4 [facility] Surgery 11:40 AM 10/27/2024 [1] Patient Active Problem List Diagnosis Decompensated cirrhosis ([facility]-HCC) Acute kidney injury superimposed on CKD ([facility]) Alcohol use disorder Metabolic encephalopathy Hypertension Other hyperlipidemia Thrombocytopenia ([facility]) Renal mass, left Abdominal pain Hypokalemia CKD (chronic kidney disease) stage 4, GFR 15-29 ml/min ([facility]) Metabolic acidosis with normal anion gap and bicarbonate losses GERD (gastroesophageal reflux disease) Hypothyroidism Itching Anemia BRBPR (bright red blood per rectum) SBP (spontaneous bacterial peritonitis) ([facility]) C Diff Diarrhea C. difficile [...] 10/27/2024 7:16 AM Name: Blair Gilbert CSN: [id number] HPI: Blair Gilbert is a 39 y.o. [...] times a day. naloxone (NARCAN) 4 mg/actuation [place] Apply 1 spray in one nostril if [...] 0013) PCO2: 37 (10/27/2412) PO2: (!) 137 (10/27/2412) HCO3: (!) 20 (10/27/2412) Base Excess: (!) -6.4 (10/27/2412) SaO2: 100 (10/27/24 001) Recent Labs 10/26/24 0610 10/26/24 1048 10/27/2412 PHART 7.27* 7.37 7.32* PCO2 47* 36 37 PO2ART 127* 91 137* GFD0API 21* 22 20* BEART -5.4* -3.9* -6.4* [...] at baseline or with provocation, shows no xyzks-yr-grfm atrial level shunt. - Pulmonary arteries: Systolic [...] IV pantoprazole while intubated, NPO Last BM: ENERGY SALES BROKER Bowel regimen: Senna/Miralax when able Nausea: Zofran [...] 10/27/2024 0715 Gross per 24 hour Intake 89409.82 ml Output 7060 ml Net 6224.82 ml [...] results for input(s): TEGANGLE , TEGKTIME , YPGTJOCD78 , TEGMAXAMPL , TEGRTIME , CBMZ in [...] in sodium chloride 0.9% 100 mL IVPB (Rnra1Gdd) 1 g Every 6 hours scheduled / Admin Instructions: Dosage may need to be adjusted for renal dysfunction. Full dose is 1g IV q6h Use Rire3Mef Adapter - Mix Thoroughly Before Administration Notes to Pharmacy: On order entry clerk estimated creatinine clearance is 35.9 mL/min (A) (based on SCr of 3.87 mg/dL (H)). Route: Intravenous Linked Group 1: Placed in And Linked Group cefTRIAXone (ROCEPHIN) 2 g in sodium chloride 0.9 % 100 mL Pqma6Bua Continuous - One Step Medications Only 10/27/2024 [...] Agitation Sedation Scale: -2 Overall CAM-ICU : ([facility]) A/P: - ADDY # [...] Forearm 1 Arterial Line 06/14/25 Right Radial 10/25/245 Radial 1 Introducer 10/25/24 Internal jugular Right [...] Solid Organ Transplant Clinical Specialist Contact via Sernova Preferred * Simeon Guzman RN - 10/27/2024 [...] 10/26/2024 0725 Gross per 24 hour Intake 18324.32 ml Output 2075 ml Net 62404.32 ml Consitutional: Intubated/sedated HEENT: Mucous membranes moist [...] History and Physical Patient: Blair Gilbert CSN: [id number] History CC: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 naloxone (NARCAN) 4 mg/actuation [place] Apply 1 spray in one nostril if [...] Resource Strain: Low Risk (07/09/2024) Received from [facility] Overall Financial Resource Strain (CARDIA) [...] No Physical Activity: Unknown (07/14/2024) Received from [facility] Exercise Vital Sign Days of Exercise per Week: Patient unable to answer Minutes of Exercise per Session: Not on file Stress: Patient Unable To Answer (07/14/2024) Received from [facility] [place] [place] [facility] - Occupational Stress Questionnaire Feeling of Stress : Patient unable to answer Social Connections: Patient Unable To Answer (07/14/2024) Received from [facility] Social Connection and Isolation Panel [NHANES] Frequency of Communication with Friends and Family: Patient unable to answer Frequency of Social Gatherings with Friends and Family: Patient unable to answer Attends Confucianist Services: Patient unable to answer Active Member [...] -- 5.4 ALBUMIN 3.2* 3.1* Invalid input(s): [facility] Other labs: Imaging Studies No results [...] admitted to SICU post-op. LEANDRA OG MD [facility] Surgery Liver Transplant Pager: [phone] 8:24 PM 10/25/2024 Cosigned by Semaj [...] Name: Blair Gilbert Date: 1985 Billing #: [id number] Date of Procedure: 10/25/2024 Diagnosis: End Stage Renal Disease Procedure: 1. Donor Kidney Transplant 2. Back Bench Preparation Donor Kidney 3. Baseline Kidney transplant biopsy 4. Insertion of Indwelling Stent 5. Removal of Perihepatic packing Surgeons * Flaquito Ba MD Software Project Manager MD Shayan Findings: Low Hockey stick incision [...] donor was ABO O and UNOS ID [id number], Match Run [id number] (SLK). This donor was a Donor after [...] was then wanded with the lap detection fleet assistant. The incision was ex tented 2 [...] and closure. Flaquito Ba MD Transplant Surgeon stock raiser * Flaquito Ba MD - 10/27/2024 6:15 AM EDT TRANSPLANT KIDNEY with bile duct reconstruction Brief Op Note Blair Gilbert 10/27/2024 Pre-op Diagnosis: Acute kidney injury superimposed on CKD (CMS-HCC) [N17.9, N18.9] Post-op Diagnosis: same Procedure(s): TRANSPLANT KIDNEY Surgeon(s): MD Semaj Washington III, MD Anesthesia: General Endotracheal Staff: Medical Art Therapist: Chinedu Quinn RN Scrub Person: ST Angela Fellow: Kemar Sahni MD 2nd Medical Art Therapist: Marty Clark RN 3rd Medical Art Therapist: Candis Mcdaniel RN FINDINGS Berkowitz 3 day Drains: Intraabdominal (perihepatic) UNOS ID [id number], Match Run [id number] Kid WIT 27 min Kid CIT 33 [...] (Berkowitz) Triple-lumen (3-Way) 18 Fr. (Active) Status [place] Drainage 10/26/241999 Collection Container Standard drainage bag [...] Washington III, MD Anesthesia: General Endotracheal Staff: Medical Art Therapist: Chinedu Quinn RN Relief Medical Art Therapist: Michela Amos RN Relief Scrub: Stephani Blake RN Scrub Person: ST Angela Fellow: Kemar Sahni MD 2nd Medical Art Therapist: Marty Clark RN 3rd Medical Art Therapist: Candis Mcdaniel RN Estimated Blood Loss: [...] (Berkowitz) Triple-lumen (3-Way) 18 Fr. (Active) Status [place] Drainage 10/26/241999 Collection Container Standard drainage bag [...] day Drains: 2 Intraabdominal (perihepatic) UNOS ID [id number], Match Run [id number] Donor: young DCD NRP Kid WIT 27 [...] MD - 10/27/2024 12:00 AM EDT [facility] PATIENT NAME: BLAIR GILBERT DATE OF : 1985 CSN: [id number] PHYSICIAN: Semaj Mcnair III, MD ADMIT DATE: 10/25/2024 DICTATED BY: Semaj Mcnair III, MD SURGERY DATE: 10/27/2024 OPERATIVE REPORT SURGEON: Semaj Mcnair III, MD BEAN SORTER SURGEON: Kemar Sahni MD. PREOPERATIVE DIAGNOSIS: Open [...] were made hemostatic with the argon beam building construction supervisor. We assessed the flows of the portal [...] a mucocele formation. We then performed a lukf-md-zxcw choledochocholedochostomy in an end to end fashion [...] small umbilicalhernia that was closed with a trzznd-sl-fmfky 0 PDS suture. At this point, we [...] complications. SEMAJ MCNAIR III, MD RCQ/AQ JOB#: [id number] * Semaj Mcnair III, MD - 10/26/2024 7:00 AM EDT Patient Name: Blair Gilbert Date: 1985 Billing #: [id number] Date of Procedure: 10/25/2024 - 10/26/2024 Diagnosis: Chronic Hepatic Failure without coma Procedure: 1. Orthotopic Liver Transplant 2. Back Bench Preparation Donor Liver 3. Temporary portocaval shunt 4. Perihepatic packing for control of hemorrhage 5. Placement of external choledochal stent 6. Temporary abdominal closure Attending surgeons: Semaj Mcnair III, MD Software Project Manager Surgeon(s): Sveta Judge MD Findings: Whole organ placed in piggyback fashion with suprahepatic cava of donor to common orifice of all three hepatic veins for IVC anastomosis. Donor main portal vein to recipient main portal vein. Donor common hepatic artery to recipient right hepatic artery. Temporary abdominal with perihepatic packingfor control of hemorrhage. Externalization of bile duct with 8 Barbadian pediatric feeding tube. Portal Flow Modulation No [...] This donor was ABO O and UNOSID [id number], Match Run [id number]. This was a 42-year-old donation after circulatory [...] After completion of the outflow anastomosis, a Anguillan clamp was placed across the donor suprahepatic [...] artery flows were then measured with the charity: waterstem device. The portal flow was 3.4 L/min [...] do a temporary abdominal closure. An 8 Barbadian pediatric feeding tube was brought through the [...] EDT LIVER TRANSPLANT Brief Op Note Blair Gilbetr 10/25/2024 - 10/26/2024 Pre-op Diagnosis: Alcoholic cirrhosis of liver (CMS-HCC) Post-op Diagnosis: same Procedure(s): LIVER TRANSPLANT Surgeon(s): MD Sveta Alves III, MD Anesthesia: General Staff: Medical Art Therapist: Mak Maher RN; Marty Clark RN Scrub Person: ST Angela Resident: Thuy Leon MD brass cutter: Jose Daniel Arana, RONALDO Estimated Blood Loss: [...] Number of days: 5 Surgery Information: -UNOS#: [id number] -ABO: O to O -Recipient: SLK candidate [...] 1:19 PM EDTAssociated Order(s): IP CONSULT TO TISSUE SPECIALIST [facility] Transplant Discharge Education Note Assessment: [...] OLIVE Saunders, RN, NPD- Diabetes Education Office [phone] Schedule: M-F 8:00am-4:30pm * Ben Weiss, RD - 10/27/2024 4:06 PM EDTAssociated Order(s): IP CONSULT TO NUTRITION SERVICES; IP CONSULT TO NUTRITION SERVICES TXP - Initial [facility] Medical Nutrition Therapy Reason(s) for [...] I/O: +23.2L net volume. Last BM Date: (ENERGY SALES BROKER). Admit Weight: 270 lb (122.5 kg) Current [...] Based on DBW of 93.1 kg Kcals/day: 3617-7484 (25-30 kcals/kg) Protein g/day: 140-190 (1.5-2.0 g/kg) [...] Dietitian - Solid Organ Transplant Contact via Innolight Chat * Lavell Kramer MD - 10/27/2024 11:09 AM EDTAssociated Order(s): INPATIENT CONSULT TO TRANSPLANT INFECTIOUS DISEASES Infectious Disease Consultation Patient: Blair Gilbert CSN: [id number] Assessment & Plan 39 y.o. M s/p [...] blood cx's if febrile Lavell Kramer MD [phone] Chief Complaint Long Qtc History of Present [...] Strain: Low Risk (07/09/2024) Received from [facility] Overall Financial Resource Strain (CARDIA) Difficulty of [...] No Physical Activity: Unknown (07/14/2024) Received from [facility] Exercise Vital Sign Days of Exercise per Week: Patient unable to answer Minutes of Exercise per Session: Not on file Stress: Patient Unable To Answer (07/14/2024) Received from [facility] [place] [place] [facility] - Occupational Stress Questionnaire Feeling of Stress : Patient unable to answer Social Connections: Patient Unable To Answer (07/14/2024) Received from [facility] Social Connection and Isolation Panel [NHANES] Frequency of Communication with Friends and Family: Patient unable to answer Frequency of Social Gatherings with Friends and Family: Patient unable to answer Attends Confucianist Services: Patient unable to answer Active Member [...] (10/27/24 1003) sodium chloride 0.9 % Stopped (10/27/24251) sodium [...] to 4 times a day. DEXCOM G7 CONDENSER TUBE TENDER Misc Use reader as directed. DEXCOM G7 [...] times a day. 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 No indications for SCIENTOLOGIST. Good UOP - Noted KT US WNL [...] preliminary until attending attestation. Lauren Santos, DNP, [place] ATTENDANT, AFFILIATE MARKETING SPECIALIST- Transplant Nephrology [phone] Preferred contact: secure chat [1] Allergies Allergen [...] Gonzalez MD, MEd, FASN * Marcellus Hebert, NURSING HOME ASSISTANT ADMINISTRATOR, GAS PLUMBER - 10/27/2024 10:21 AM EDT HEALTH Care Management/Social Work Assessment Patient Information Patient Name: Blair Gilbert Hospital Day: 2 Inpatient/Observation: Inpatient Admit Date: 10/25/2024 Admission Diagnosis: Liver transplant recipient (CMS-HCC) [Z94.4] Attending provider: Semaj Mcnair III, MD PCP: Enedina Mcguire NP Home Pharmacy: [facility] [address] [place] [address] [place] [address] [facility] [address] [facility] [address] Issues related to obtaining medications: N/A Payor Information Medical Insurance Coverage: Payor: [place] / Plan: [facility] GLOBAL / Product Type: *No [...] History: 12 weeks of CD Treatement at [facility] Do you need Substance Abuse Treatment Resources?: [...] currently resides with his spouse at [facility] [place]. 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 Patient's LNOK:Spouse, Abdiaziz Gilbert, Patient has no current or past history of suicidal/homicidal ideation. Patient has a history of mental health diagnoses, PTSD and Generalized Anxiety Disorder. Patient is connected with TransplantPsychiatrist and prescribed Prozac. Patient has a history of alcohol use and has completed 12 weeksof CD Treatment at [facility]. Spouse explained that he will [...] as appropriate. NUBIA Escalera, RONALDO Phone Number: [phone] * John Moreno MD - 10/26/2024 3:41 AM EDT SURGICAL ICU CONSULT NOTE 10/26/2024 3:41 AM Name: Blair Gilbert CSN: [id number] HPI: Blair Gilbert is a 39 y.o. [...] at 9:00 PM naloxone (NARCAN) 4 mg/actuation [place] Apply 1 spray in one nostril if [...] % 250 mL infusion 2.5 mcg/min (10/26/24 6897) insulin regular in 0.9 % sodium chloride norepinephrine 18 mcg/min (10/26/24 3573) vasopressin 0.04 Units/min (10/26/24 8665) PRN Meds: heparin (porcine) 5,000 unit/mL 10,000 [...] input(s): PHART , PCO2 , PO2ART , OAF6DMX , BEART in the last 72 hours. [...] at baseline or with provocation, shows no ylhoh-dc-hmap atrial level shunt. - Pulmonary arteries: Systolic [...] IV pantoprazole while intubated, NPO Last BM: ENERGY SALES BROKER Bowel regimen: Senna/Miralax when able Nausea: Zofran PRN FLUID/ELECTROLYTES Recent Labs 10/25/24 2217 NA 137 K 2.1* CL 100 CO2 20* BUN 74* CREATININE 3.87* CALCIUM 9.3 PHOS 5.9* GLUCOSE 114* Intake/Output Summary (Last 24 hours) at 10/26/2024 0341 Last data filed at 10/26/2024 0326 Gross per 24 hour Intake 45965 ml Output 675 ml Net 48597 ml IV Fluids: EPINEPHrine (ADRENALIN) 10 mg [...] A/P: ADDY HEMATOLOGIC Labs: Recent Labs 10/25/24 2217 10/25/24 2340 10/26/24 0039 10/26/24 0140 WBC 6.2 -- -- -- HGB 8.3* 6.6* 7.9* 7.4* HCT 23.7* 19.0* 23.0* 22.0* MCV 98.9 -- -- -- PLT 56* -- -- -- No results for input(s): ANTIXALMWHEP in the last 72 hours. Recent Labs 10/25/242216 INR 1.8* PROTIME 21.7* No results for input(s): TEGANGLE , TEGKTIME , VDLOVHFO18 , TEGMAXAMPL , TEGRTIME , CBMZ in [...] in sodium chloride 0.9% 100 mL IVPB (Tmkl7Cix) 2 g Every 6 hours 10/26/2024 -- Admin Instructions: Use Zzmv3Dfm Adapter - Mix Thoroughly Before Administration Notes to Pharmacy: On order entry clerk estimated creatinine clearance is 35.9 mL/min (A) (based on SCr of 3.87 mg/dL (H)). Route: Intravenous AMPicillin 2 g in sodium chloride 0.9% 100 mL IVPB (Gqkm5Blb) 2 g Once 10/26/2024 -- Admin Instructions: Use Thlp6Hkg Adapter - Mix Thoroughly Before Administration Notes to Pharmacy: On order entry clerk estimated creatinine clearance is 35.9 mL/min (A) (based on SCr of 3.87 mg/dL (H)). Route: Intravenous cefTRIAXone (ROCEPHIN) 2 g in sodium chloride 0.9 % 100 mL Ozyq1Obp (Completed) 2 g Once 10/25/2024 10/26/2024 Admin Instructions: Use Weku3Pwv Adapter - Mix Thoroughly Before Administration Route: [...] R IJ Mac Arterial Line? R radial Norman Urinary Catheter? Berkowitz - Reason: Adequate I/O [...] 47 (H) 10/26/2024 PO2ART 127 (H) 10/26/2024 HHN4YTD 21 (L) 10/26/2024 BEART -5.4 (L) 10/26/2024 AVT7FDI 94.6 (L) 10/26/2024 X5GMDIHC 98 10/26/2024 P:F ratio = 363 CARDIOVASCULAR: [...] Acute Care Surgery, and Surgical Critical Care [facility] Academic Office [phone] For Transfers, call [phone] documented in this encounter Nursing Notes * [...] Progressing * Care Coordination - NUBIA Escalera, GAS PLUMBER - 10/31/2024 11:34 AM EDT [facility] Case Management/Social Work Department Progress Note Patient Information Patient Name: Blair Gilbert Hospital day: 6 Inpatient/Observation: Inpatient Level of Care: Transplant Admit date: 10/25/2024 Admission diagnosis: Liver transplant recipient (CMS-HCC) [Z94.4] PMH: has a past medical history of Alcoholic cirrhosis of liver (CMS-HCC), Esophageal varices (CMS-HCC), Hepatorenal syndrome ([facility]-H[facility]), Hypertension, Other hyperlipidemia (07/26/2024), Renal cell carcinoma ([facility]-H[facility]), Thrombocytopenia ([facility]), and Thyroid disease. PCP: Enedina Mcguire NP Home Pharmacy: [facility] [address] [place] [id number] [facility] [address] [facility] [address] [facility] Deya NAA [place] - [address] [facility] [address] [facility] [place] [address] Medical Insurance Coverage: Payor: [employer] / Plan: [employer] / Product Type: *No Product type* / Other Pertinent Information SW received report from Transplant medical team. SW completed chart review. Per report patient is not medically ready to discharge. Patient recommended for home PT/OT and 2x weekly labs. SW followed up on [facility] referrals and submitted a few more C referrals. Update: MEREDITH made nurse educator aware that there were no accepting [facility] agencies([facility], [facility], [facility]) and patient would need to outpatient for PT/OT and labs. Discharge Plan Anticipated discharge plan: Home with HHC vs Home with outpatient Anticipated discharge date: 11/01 CM/SW will continue to follow and remain available for discharge planning needs. NUBIA Escalera, RONALDO Cell [phone] * Plan of Care - Paulette Flannery [...] Citlaly Nova - 10/29/2024 1:53 PM EDT [facility] Case Management/Social Work Department Progress [...] disease. PCP: Enedina Mcguire NP Home Pharmacy: [facility] [address] [place] [address] [address] [address] [facility] [address] [facility] [address] [facility] Deya NAA [place] - [address] [place] [address] [place] [id number] Medical Insurance Coverage: Payor: [employer] [...] SW submitted blanket HHC referral to [facility] [place], [facility] [place], [facility], and [facility]. Awaiting responses. SW to followpending [...] available for discharge planning needs. NUBIA Rhodes, GAS PLUMBER Inpatient [employer]/Care Coordination [phone] * Plan of Care - Soco Yap [...] Escalera LSW - 10/28/2024 2:29 PM EDT [facility] Case Management/Social Work Department Progress Note Patient Information Patient Name: Blair Gilbert Hospital day: 3 Inpatient/Observation: Inpatient Level of Care: Transplant Admit date: 10/25/2024 Admission diagnosis: Liver transplant recipient ([facility]) [Z94.4] PMH: has a past medical history of Alcoholic cirrhosis of liver (CMS-HCC), Esophageal varices (CMS-HCC), Hepatorenal syndrome (CMS-HCC), Hypertension, Other hyperlipidemia (07/26/2024), Renal cell carcinoma (CMS-HCC), Thrombocytopenia (CMS-HCC), and Thyroid disease. PCP: Enedina Mcguire NP Home Pharmacy: [facility] [address] [place] [address] [address] [facility] [address] [facility] [address] [facility] Deya - De[place] - [address] [place] [address] [facility] [id number] Medical Insurance Coverage: Payor: [facility] / Plan: [facility] / Product Type: *No Product type* / Other Pertinent Information SW received report from Transplant medical team. SW completed chart review. Per report patient is not medically ready to discharge. PT/OT to assess once appropriate. Discharge Plan Anticipated discharge plan: Pending PT/OT Anticipated discharge date: 11/03 CM/SW will continue to follow and remain available for discharge planning needs. NUBIA Escalera, GAS PLUMBER Cell [phone] * Plan of Care - Elaine Carrillo [...] at all times. Outcome: Completed Problem: Non-violent, who-xixw-hpewysxltbo restraints Description: Less restrictive alternative interventions will [...] of medical procedures, or protection of medical affairs leader access. Outcome: Completed * Plan of Care [...] foods as appropriate. Outcome: Progressing Problem: Non-violent, xwk-mzop-ddlfancojxs restraints Description: Less restrictive alternative interventions will [...] of medical procedures, or protection of medical affairs leader access. Outcome: Progressing * Plan of Care - Shanel Shen RN - 10/27/2024 9:00 AM EDT Problem: Non-violent, rcc-owlx-sexhylnyzhk restraints Description: Less restrictive alternative interventions will [...] - 10/26/2024 7:41 PM EDT Problem: Non-violent, trt-qrul-dvorxyoolqp restraints Description: Less restrictive alternative interventions will [...] of medical procedures, or protection of medical affairs leader access. Outcome: Not Progressing Patient in bilateral [...] restraint flowsheet for further documentation. Problem: Non-violent, ajf-mfsr-ptfwbfwthtb restraints Description: Less restrictive alternative interventions will [...] of medical procedures, or protection of medical affairs leader access. Outcome: Progressing * Plan of Care [...] Description 12/05/2024 8:01 AM EDT Hospital Encounter [facility] ENDOSCOPY [address] [place] [address] Chris Orosco MD [address] [place] [phone] 12/05/2024 8:01 AM EDT - 12/05/2024 8:31 AM EDT Surgery [facility] ENDOSCOPY [address] [place] [address] Chris Orosco MD [address] [place] [phone] EGD Pending Results Name Type Priority Associated [...] Routine 10/31/2024 11:59 AM EDT US DUPLEX TPA-RKCKGQ-QSLBWSG COMPLETE Routine 10/31/2024 10:19 AM EDT US [...] Routine 10/28/2024 5:31 PM EDT US DUPLEX PNE-LQYHMH-KONWYOO COMPLETE STAT 10/28/2024 4:23 PM EDT US [...] Routine 10/27/2024 10:00 AM EDT US DUPLEX GXQ-DKMJPV-SRWAZFF COMPLETE STAT 10/27/2024 9:51 AM EDT US [...] kidney injury superimposed on CKD ([facility]) ND RENAL ALTRNSPLJ IMPLTJ GRF W/ORCHESTRA CONDUCTOR NEPHRECTOMY 10/27/2024 2:32 AM EDT Acute kidney injury superimposed on CKD ([facility]-HCC) 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 smith [...] 100 mg/dL 11/02/2024 5:45 PM EDT [facility] Blood 11/02/2024 5:44 PM EDT 11/02/2024 5:45 PM EDT us Semaj Mcnair III, MD POINT OF CARE TEST ORDERABLES Final Result [facility] [address] [place] [address] * (ABNORMAL) POC Glucose Monitoring Device (11/02/2024 3:34 PM EDT) POC Glucose Monitoring Device 208(H) 70 - 100 mg/dL 11/02/2024 3:35 PM EDT [facility] Blood 11/02/2024 3:34 PM EDT 11/02/2024 3:35 PM EDT us Semaj Mcnair III, MD POINT OF CARE TEST ORDERABLES Final Result [facility] [address] * (ABNORMAL) POC Glucose Monitoring Device (11/02/2024 1:18 PM EDT) POC Glucose Monitoring Device 225(H) 70 - 100 mg/dL 11/02/2024 1:19 PM EDT [facility] Blood 11/02/2024 1:18 PM EDT 11/02/2024 1:19 PM EDT Semaj Mcnair III, MD POINT OF CARE TEST ORDERABLES Final Result Performing Organization Address City/[facility]/ZIP Co de Phone Number [facility] [address] [place] [address] * (ABNORMAL) POC Glucose Monitoring Device (11/02/2024 8:59 AM EDT) Pathologist [facility] POC Glucose Monitoring Device 129(H) 70 - 100 mg/dL 11/02/2024 9:00 AM EDT [facility] Blood 11/02/2024 8:59 AM EDT 11/02/2024 9:00 AM EDT Semaj Mcnair III, MD POINT OF CARE TEST ORDERABLES Final Result Performing Organization Address [facility] de Phone Number [address] * Tacrolimus level (11/02/2024 5:53 AM EDT) [facility] Tacrolimus (LC-MS) 7.4 3.0 - 15.0 ng/mL 11/02/2024 2:23 PM EDT [facility] Comment:Performed via liquid chromatography tandem mass spectrometry. Detection limit: 1 ng/mL. Individual target concentrations may vary due to target organ and time after transplant. This test has been developed and its performance characteristics determined by [facility] which is certified under [...] PharmD LAB BLOOD ORDERABLES Denisse l Result [facility] [address] [place] [address], [facility] * (ABNORMAL) Renal Function Panel w/EGFR (11/02/2024 5:53 AM EDT) Sodium 140 133 - 146 mmol/L 11/02/2024 6:47 AM EDT [facility] Potassium 3.3(L) 3.5 - 5.3 mmol/L 11/02/2024 6:47 AM EDT [facility] Chloride 107 98 - 110 mmol/L 11/02/2024 6:47 AM EDT [facility] CO2 25 21 - 33 mmol/L 11/02/2024 6:47 AM EDT [facility] Anion Gap 8 3 - 16 mmol/L 11/02/2024 6:47 AM EDT [facility] BUN 31(H) 7 - 25 mg/dL 11/02/2024 6:47 AM EDT [facility] Creatinine 1.08 0.60 - 1.30 mg/dL 11/02/2024 6:47 AM EDT [facility] Glucose 150(H) 70 - 100 mg/dL 11/02/2024 6:47 AM EDT [facility] Calcium 7.8(L) 8.6 - 10.3 mg/dL 11/02/2024 6:47 AM EDT [facility] Phosphorus 2.0(L) 2.1 - 4.7 mg/dL 11/02/2024 6:47 AM EDT [facility] Albumin 3.2(L) 3.5 - 5.7 g/dL 11/02/2024 6:47 AM EDT [facility] Osmolality, Calculated 299 278 - 305 mOsm/kg 11/02/2024 6:47 AM EDT [facility] EGFR 88 11/02/2024 6:47 AM EDT [facility] Comment:As of [...] 11/02/2024 6:12 AM EDT Beata Dada Horner [facility] BLOOD ORDERABLES Denisse l Result Performing Organization Address City/[facility]/ZIP Co de Phone Number [facility] [address] * (ABNORMAL) Magnesium (11/02/2024 5:53 AM EDT) Magnesium 1.3(L) 1.5 - 2.5 mg/dL 11/02/2024 6:47 AM EDT [facility] Plasma 11/02/2024 5:53 AM EDT 11/02/2024 6:12 AM EDT [facility] BLOOD ORDERABLES Denisse l Result Performing Organization Address City/[facility]/ZIP Co de Phone Number [facility] [address] * (ABNORMAL) Hepatic Function Panel (11/02/2024 5:53 AM EDT) Total Bilirubin 1.6(H) 0.0 - 1.5 mg/dL 11/02/2024 6:47 AM EDT [facility] Bilirubin, Direct 0.81(H) 0.00 - 0.40 mg/dL 11/02/2024 6:47 AM EDT [facility] AST 30 13 - 39 U/L 11/02/2024 6:47 AM EDT [facility] ALT 66(H) 7 - 52 U/L 11/02/2024 6:47 AM EDT [facility] Alkaline Phosphatase 126(H) 36 - 125 U/L 11/02/2024 6:47 AM EDT [facility] Total Protein 4.6(L) 6.4 - 8.9 g/dL 11/02/2024 6:47 AM EDT [facility] Albumin 3.2(L) 3.5 - 5.7 g/dL 11/02/2024 6:47 AM EDT [facility] Bilirubin, Indirect 0.79 0.00 - 1.10 mg/dL 11/02/2024 6:47 AM EDT [facility] Plasma 11/02/2024 5:53 AM EDT 11/02/2024 6:12 AM EDT us Beata Horner [employer] LAB BLOOD ORDERABLES Denisse l Result Performing Organization Address City/State/[facility] Co de Phone Number [facility] [address] * (ABNORMAL) CBC (11/02/2024 5:53 AM EDT) WBC 5.8 3.8 - 10.8 10E3/uL 11/02/2024 6:21 AM EDT [facility] RBC 3.12(L) 4.20 - 5.80 10E6/uL 11/02/2024 6:21 AM EDT [facility] Hemoglobin 9.2(L) 13.2 - 17.1 g/dL 11/02/2024 6:21 AM EDT [facility] Hematocrit 27.5(L) 38.5 - 50.0 % 11/02/2024 6:21 AM EDT [facility] MCV 87.9 80.0 - 100.0 fL 11/02/2024 6:21 AM EDT [facility] MCH 29.5 27.0 - 33.0 pg 11/02/2024 6:21 AM EDT [facility] MCHC 33.5 32.0 - 36.0 g/dL 11/02/2024 6:21 AM EDT [facility] RDW 17.5(H) 11.0 - 15.0 % 11/02/2024 6:21 AM EDT [facility] Platelets 61(L) 140 - 400 10E3/uL 11/02/2024 6:21 AM EDT [facility] MPV 7.9 7.5 - 11.5 fL 11/02/2024 6:21 AM EDT [facility] Whole Blood 11/02/2024 5:53 AM EDT 11/02/2024 6:12 AM EDT Beata Horner [facility] BLOOD ORDERABLES Denisse l Result [facility] [address] [facility]. [address] * (ABNORMAL) POC Glucose Monitoring Device (11/01/2024 9:26 PM EDT) POC Glucose Monitoring Device 199(H) 70 - 100 mg/dL 11/01/2024 9:27 PM EDT [facility] Blood 11/01/2024 9:26 PM EDT 11/01/2024 9:27 PM EDT Semaj Mcnair III, MD POINT OF CARE TEST ORDERABLES Final Result Performing Organization Address City/[facility]/ZIP Co de Phone Number [facility] [address] [facility]. [address] * (ABNORMAL) POC Glucose Monitoring Device (11/01/2024 5:04 PM EDT) POC Glucose Monitoring Device 255(H) 70 - 100 mg/dL 11/01/2024 5:05 PM EDT [facility] Blood 11/01/2024 5:04 PM EDT 11/01/2024 5:05 PM EDT Semaj Mcnair III, MD POINT OF CARE TEST ORDERABLES Final Result [facility] [address] [facility] * (ABNORMAL) Renal Function Panel w/EGFR, STAT (11/01/2024 2:17 PM EDT) Sodium 139 133 - 146 mmol/L 11/01/2024 3:10 PM EDT [facility] Potassium 3.3(L) 3.5 - 5.3 mmol/L 11/01/2024 3:10 PM EDT [facility] Chloride 107 98 - 110 mmol/L 11/01/2024 3:10 PM EDT [facility] CO2 24 21 - 33 mmol/L 11/01/2024 3:10 PM EDT [facility] Anion Gap 8 3 - 16 mmol/L 11/01/2024 3:10 PM EDT [facility] BUN 35(H) 7 - 25 mg/dL 11/01/2024 3:10 PM EDT [facility] Creatinine 1.22 0.60 - 1.30 mg/dL 11/01/2024 3:10 PM EDT [facility] Glucose 203(H) 70 - 100 mg/dL 11/01/2024 3:10 PM EDT [facility] Calcium 8.3(L) 8.6 - 10.3 mg/dL 11/01/2024 3:10 PM EDT [facility] Phosphorus 2.2 2.1 - 4.7 mg/dL 11/01/2024 3:10 PM EDT [facility] Albumin 3.4(L) 3.5 - 5.7 g/dL 11/01/2024 3:10 PM EDT [facility] Osmolality, Calculated 302 278 - 305 mOsm/kg 11/01/2024 3:10 PM EDT [facility] EGFR 76 11/01/2024 3:10 PM EDT [facility] Comment:As of [...] MD LAB BLOOD ORDERABLES Final Result [facility] [address] [place] [address], [facility] * X-ray Portable Abdomen AP view (11/01/2024 [...] 100 mg/dL 11/01/2024 12:23 PM EDT [facility] Blood 11/01/2024 12:2 2 PM EDT 11/01/2024 12:23 PM EDT Semaj Mcnair III, MD POINT OF CARE TEST ORDERABLES Final Result Performing Organization Address [facility]/ZIP Co de Phone Number [facility] [address] [place] [address] * (ABNORMAL) POC Glucose Monitoring Device (11/01/2024 8:50 AM EDT) POC Glucose Monitoring Device 175(H) 70 - 100 mg/dL 11/01/2024 8:51 AM EDT [facility] Blood 11/01/2024 8:50 AM EDT 11/01/2024 8:51 AM EDT Semaj Mcnair III, MD POINT OF CARE TEST ORDERABLES Final Result Performing Organization Address [facility] Co de Phone Number [facility] [address] [place] [address] * Tacrolimus level (11/01/2024 6:01 AM EDT) Tacrolimus (LC-MS) 7.5 3.0 - 15.0 ng/mL 11/01/2024 12:14 PM EDT [facility] Comment:Performed via liquid chromatography tandem mass spectrometry. Detection limit: 1 ng/mL. Individual target concentrations may vary due to target organ and time after transplant. This test has been developed and its performance characteristics determined by [facility] which is certified under [...] PharmD LAB BLOOD ORDERABLES Denisse valle Result [facility] [address] [facility] [place] [address], [facility] * (ABNORMAL) Renal Function Panel w/EGFR (11/01/2024 6:01 AM EDT) Sodium 139 133 - 146 mmol/L 11/01/2024 6:57 AM EDT [facility] Potassium 3.3(L) 3.5 - 5.3 mmol/L 11/01/2024 6:57 AM EDT [facility] Chloride 108 98 - 110 mmol/L 11/01/2024 6:57 AM EDT [facility] CO2 22 21 - 33 mmol/L 11/01/2024 6:57 AM EDT [facility] Anion Gap 9 3 - 16 mmol/L 11/01/2024 6:57 AM EDT [facility] BUN 37(H) 7 - 25 mg/dL 11/01/2024 6:57 AM EDT [facility] Creatinine 1.30 0.60 - 1.30 mg/dL 11/01/2024 6:57 AM EDT [facility] Glucose 163(H) 70 - 100 mg/dL 11/01/2024 6:57 AM EDT [facility] Calcium 8.2(L) 8.6 - 10.3 mg/dL 11/01/2024 6:57 AM EDT [facility] Phosphorus 2.9 2.1 - 4.7 mg/dL 11/01/2024 6:57 AM EDT [facility] Albumin 3.1(L) 3.5 - 5.7 g/dL 11/01/2024 6:57 AM EDT [facility] Osmolality, Calculated 300 278 - 305 mOsm/kg 11/01/2024 6:57 AM EDT [facility] EGFR 71 11/01/2024 6:57 AM EDT [facility] Comment:As of [...] 6:01 AM EDT 11/01/2024 6:20 AM EDT [employer] LAB BLOOD ORDERABLES Denisse l Result Performing Organization Address City/[facility]/ZIP Co de Phone Number [facility] [address] * Magnesium (11/01/2024 6:01 AM EDT) Magnesium 1.5 1.5 - 2.5 mg/dL 11/01/2024 6:57 AM EDT [facility] Plasma 11/01/2024 6:01 AM EDT 11/01/2024 6:20 AM EDT [employer] [facility] BLOOD ORDERABLES Denisse l Result [facility] [address] [place] [facility]. [address] * (ABNORMAL) Hepatic Function Panel (11/01/2024 6:01 AM EDT) Total Bilirubin 2.0(H) 0.0 - 1.5 mg/dL 11/01/2024 6:57 AM EDT [facility] Bilirubin, Direct 1.06(H) 0.00 - 0.40 mg/dL 11/01/2024 6:57 AM EDT [facility] AST 21 13 - 39 U/L 11/01/2024 6:57 AM EDT [facility] ALT 62(H) 7 - 52 U/L 11/01/2024 6:57 AM EDT [facility] Alkaline Phosphatase 114 36 - 125 U/L 11/01/2024 6:57 AM EDT [facility] Total Protein 4.6(L) 6.4 - 8.9 g/dL 11/01/2024 6:57 AM EDT [facility] Albumin 3.1(L) 3.5 - 5.7 g/dL 11/01/2024 6:57 AM EDT [facility] Bilirubin, Indirect 0.94 0.00 - 1.10 mg/dL 11/01/2024 6:57 AM EDT [facility] Plasma 11/01/2024 6:01 AM EDT 11/01/2024 6:20 AM EDT Beata Horner [facility] BLOOD ORDERABLES Denisse l Result [facility] [address] [facility]. [address] * (ABNORMAL) CBC (11/01/2024 6:01 AM EDT) WBC 5.9 3.8 - 10.8 10E3/uL 11/01/2024 6:29 AM EDT [facility] RBC 3.19(L) 4.20 - 5.80 10E6/uL 11/01/2024 6:29 AM EDT [facility] Hemoglobin 9.5(L) 13.2 - 17.1 g/dL 11/01/2024 6:29 AM EDT [facility] Hematocrit 27.8(L) 38.5 - 50.0 % 11/01/2024 6:29 AM EDT [facility] MCV 87.1 80.0 - 100.0 fL 11/01/2024 6:29 AM EDT [facility] MCH 29.9 27.0 - 33.0 pg 11/01/2024 6:29 AM EDT [facility] MCHC 34.3 32.0 - 36.0 g/dL 11/01/2024 6:29 AM EDT [facility] RDW 17.4(H) 11.0 - 15.0 % 11/01/2024 6:29 AM EDT [facility] Platelets 56(L) 140 - 400 10E3/uL 11/01/2024 6:29 AM EDT [facility] MPV 8.3 7.5 - 11.5 fL 11/01/2024 6:29 AM EDT [facility] Whole Blood 11/01/2024 6:01 AM EDT 11/01/2024 6:19 AM EDT us Beata Horner [facility] BLOOD ORDERABLES Denisse l Result [facility] [address] * (ABNORMAL) POC Glucose Monitoring Device (10/31/2024 9:15 PM EDT) [facility] POC Glucose Monitoring Device 171(H) 70 - 100 mg/dL 10/31/2024 9:15 PM EDT [facility] Blood 10/31/2024 9:15 PM EDT 10/31/2024 9:15 PM EDT us Semaj Mcnair III, MD POINT OF CARE TEST ORDERABLES Final Result [facility] [address] * (ABNORMAL) POC Glucose Monitoring Device (10/31/2024 5:56 PM EDT) POC Glucose Monitoring Device 179(H) 70 - 100 mg/dL 10/31/2024 5:57 PM EDT [facility] Blood 10/31/2024 5:56 PM EDT 10/31/2024 5:57 PM EDT us Semaj Mcnair III, MD POINT OF CARE TEST ORDERABLES Final Result [facility] [address] [place] [address], [facility] * CT Abdomen and Pelvis WO IV [...] Adrenal gland: No focal nodule seen. Kidneys: [place] kidneys noted with nonobstructing calcifications on the right. Findings of postsurgical changes in the left [place] kidney. Mild right hydronephrosis without an obstructive [...] Adrenal gland: No focal nodule seen. Kidneys: [place] kidneys noted with nonobstructing calcifications on theright. Findings of postsurgical changes in the left [place] kidney. Mildright hydronephrosis without an obstructive course [...] QT: 400 ms QTc: 456 ms P Winst[place]: 49 degrees R Winsted: 3 degrees T Winsted: 14 degrees Diagnosis Line: NORMAL SINUS RHYTHM ^ NORMAL ECG ^ ^ Confirmed by MD REID JAMES ([id number]) on 11/02/2024 6:56:52 AM Priti Geiger CNP ECG ORDERABLES Final Result MUSE * (ABNORMAL) Urinalysis w/Rfl to Microscopic (10/31/2024 1:18 PM EDT) Color, UA Straw Yellow,Straw 10/31/2024 1:46 PM EDT [facility] Clarity, UA Clear Clear 10/31/2024 1:46 PM EDT [facility] Specific [place], UA 1.013 1.005 - 1.035 10/31/2024 1:46 PM EDT [facility] pH, UA 6.5 5.0 - 8.0 10/31/2024 1:46 PM EDT [facility] Protein, UA Negative Negative mg/dL 10/31/2024 1:46 PM EDT [facility] Glucose, UA Negative Negative mg/dL 10/31/2024 1:46 PM EDT [facility] Ketones, UA Negative Negative mg/dL 10/31/2024 1:46 PM EDT [facility] Bilirubin, UA Negative Negative 10/31/2024 1:46 PM EDT [facility] Blood, UA Large(A) Negative 10/31/2024 1:46 PM EDT [facility] Nitrite, UA Negative Negative 10/31/2024 1:46 PM EDT [facility] Urobilinogen, UA <2.0 0.2 - 1.9 mg/dL 10/31/2024 1:46 PM EDT [facility] Leukocyte Esterase, UA Negative Negative 10/31/2024 1:46 PM EDT [facility] RBC, UA >100(H) 0 - 3 /HPF 10/31/2024 1:46 PM EDT [facility] WBC, UA 3 0 - 5 /HPF 10/31/2024 1:46 PM EDT [facility] Hyaline Casts, UA 3(H) 0 - 2 /LPF 10/31/2024 1:46 PM EDT [facility] Urine 10/31/2024 1:18 PM EDT 10/31/2024 1:32 PM EDT Priti Geiger [facility] URINE ORDERABLES Final Result [facility] [address] * (ABNORMAL) Post Kidney Transplant Urine Culture (10/31/2024 1:18 PM EDT) Culture Result Enterococcus faecium, Vancomycin Resistant(A) [facility] Comment: 1,000- <10,000 cfu/mL [...] >=32: Resistant Comment:See Results Priti Geiger [employer] MICROBIOLOGY - GENERAL ORDERA BLES Final Result [facility] [address] * (ABNORMAL) POC Glucose Monitoring Device (10/31/2024 11:59 AM EDT) POC Glucose Monitoring Device 130(H) 70 - 100 mg/dL 10/31/2024 12:21 PM EDT [facility] Blood 10/31/2024 11:5 9 AM EDT 10/31/2024 12:21 PM EDT Semaj Mcnair III, MD POINT OF CARE TEST ORDERABLES Final Result Performing Organization Address City/[facility]/ZIP Co de Phone Number [facility] [address] * US Abdomen Limited (10/31/2024 10:19 [...] EXAM: US ABDOMEN LIMITED EXAM: US DUPLEX [id number] COMPLETE INDICATION: Post-op liver transplant COMPARISON: None [...] visualized secondary to poor acoustic windows. The [place] right kidney measures 11.6 cm in length. [...] EXAM: US ABDOMEN LIMITED EXAM: US DUPLEX [id number] COMPLETE INDICATION: Post-op liver transplant COMPARISON: None [...] well visualized secondary to poor acousticwindows. The [place] right kidney measures 11.6 cm in length. [...] 10:35 AM EDT us Beata Horner [employer] IMG US ORDERABLES Final R esult * [...] 10/31/2024 10:29 AM EDT us Beata Horner [facility] IM US ORDERABLES Final R esult * US Duplex [id number] Comp (10/31/2024 10:19 AM EDT) Anatomical Region [...] EXAM: US ABDOMEN LIMITED EXAM: US DUPLEX [id number] COMPLETE INDICATION: Post-op liver transplant COMPARISON: None [...] visualized secondary to poor acoustic windows. The [place] right kidney measures 11.6 cm in length. [...] EXAM: US ABDOMEN LIMITED EXAM: US DUPLEX [id number] COMPLETE INDICATION: Post-op liver transplant COMPARISON: None [...] well visualized secondary to poor acousticwindows. The [place] right kidney measures 11.6 cm in length. [...] 10/31/2024 10:35 AM EDT Beata Horner [employer] IMG US ORDERABLES Final R esult * ECG 12-lead (MUSE) (10/31/2024 8:57 AM EDT) 10/31/2024 8:57 AM EDT Narrative MUSE - 11/01/2024 9:21 AM EDT Ventricular Rate: 83 BPM Atrial Rate: 83 BPM P-R Interval: 168 ms QRS Duration: 102 ms QT: 392 ms QTc: 460 ms P Winsted: 64 degrees R Winsted: -18 degrees T Winsted: 7 degrees Diagnosis Line: NORMAL SINUS RHYTHM ^ NORMAL ECG ^ ^ Confirmed by MD JOE, OTIS ([id number]) on 11/01/2024 9:21:13 AM Priti Geiger [employer] ECG ORDERABLES Final Result MUSE * (ABNORMAL) POC Glucose Monitoring Device (10/31/2024 8:44 AM EDT) POC Glucose Monitoring Device 145(H) 70 - 100 mg/dL 10/31/2024 8:45 AM EDT [facility] Blood 10/31/2024 8:44 AM EDT 10/31/2024 8:44 AM EDT Semaj Mcnair III, MD POINT OF CARE TEST ORDERABLES Final Result Performing Organization Address City/[facility]/ZIP Co de Phone Number [facility] [address] [place] [address] * Tacrolimus level (10/31/2024 6:40 AM EDT) Tacrolimus (LC-MS) 8.4 3.0 - 15.0 ng/mL 10/31/2024 10:05 AM EDT [facility] Comment:Performed via liquid chromatography tandem mass spectrometry. Detection limit: 1 ng/mL. Individual target concentrations may vary due to target organ and time after transplant. This test has been developed and its performance characteristics determined by [facility] which is certified under [...] PharmD LAB BLOOD ORDERABLES Denisse valle Result [facility] [address] [place] [address], [facility] * (ABNORMAL) Renal Function Panel w/EGFR (10/31/2024 6:40 AM EDT) Sodium 141 133 - 146 mmol/L 10/31/2024 8:09 AM EDT [facility] Potassium 3.5 3.5 - 5.3 mmol/L 10/31/2024 8:09 AM EDT [facility] Chloride 111(H) 98 - 110 mmol/L 10/31/2024 8:09 AM EDT [facility] CO2 20(L) 21 - 33 mmol/L 10/31/2024 8:09 AM EDT [facility] Anion Gap 10 3 - 16 mmol/L 10/31/2024 8:09 AM EDT [facility] BUN 54(H) 7 - 25 mg/dL 10/31/2024 8:09 AM EDT [facility] Creatinine 1.75(H) 0.60 - 1.30 mg/dL 10/31/2024 8:09 AM EDT [facility] Glucose 136(H) 70 - 100 mg/dL 10/31/2024 8:09 AM EDT [facility] Calcium 8.7 8.6 - 10.3 mg/dL 10/31/2024 8:09 AM EDT [facility] Phosphorus 4.1 2.1 - 4.7 mg/dL 10/31/2024 8:09 AM EDT [facility] Albumin 3.2(L) 3.5 - 5.7 g/dL 10/31/2024 8:09 AM EDT [facility] Osmolality, Calculated 309(H) 278 - 305 mOsm/kg 10/31/2024 8:09 AM EDT [facility] EGFR 50 10/31/2024 8:09 AM EDT [facility] Comment:As of [...] 6:40 AM EDT 10/31/2024 7:35 AM EDT [facility] BLOOD ORDERABLES Denisse l Result Performing Organization Address City/[facility]/ZIP Co de Phone Number [facility] [address] [facility] * Magnesium (10/31/2024 6:40 AM EDT) Magnesium 1.8 1.5 - 2.5 mg/dL 10/31/2024 8:09 AM EDT [facility] Plasma 10/31/2024 6:40 AM EDT 10/31/2024 7:35 AM EDT [facility] BLOOD ORDERABLES Denisse l Result Performing Organization Address [facility]/State/ZIP Co de Phone Number [facility] [address] * (ABNORMAL) Hepatic Function Panel (10/31/2024 6:40 AM EDT) Total Bilirubin 2.7(H) 0.0 - 1.5 mg/dL 10/31/2024 8:09 AM EDT [facility] Bilirubin, Direct 1.57(H) 0.00 - 0.40 mg/dL 10/31/2024 8:09 AM EDT [facility] AST 26 13 - 39 U/L 10/31/2024 8:09 AM EDT [facility] ALT 68(H) 7 - 52 U/L 10/31/2024 8:09 AM EDT [facility] Alkaline Phosphatase 112 36 - 125 U/L 10/31/2024 8:09 AM EDT [facility] Total Protein 4.7(L) 6.4 - 8.9 g/dL 10/31/2024 8:09 AM EDT [facility] Albumin 3.2(L) 3.5 - 5.7 g/dL 10/31/2024 8:09 AM EDT [facility] Bilirubin, Indirect 1.13(H) 0.00 - 1.10 mg/dL 10/31/2024 8:09 AM EDT [facility] Plasma 10/31/2024 6:40 AM EDT 10/31/2024 7:35 AM EDT [facility] [employer] [facility] BLOOD ORDERABLES Denisse valle Result [facility] [address] * (ABNORMAL) CBC (10/31/2024 6:40 AM EDT) Pathologist [facility] [place] WBC 6.0 3.8 - 10.8 10E3/uL 10/31/2024 8:05 AM EDT [facility] RBC 3.14(L) 4.20 - 5.80 10E6/uL 10/31/2024 8:05 AM EDT [facility] Hemoglobin 9.6(L) 13.2 - 17.1 g/dL 10/31/2024 8:05 AM EDT [facility] Hematocrit 27.5(L) 38.5 - 50.0 % 10/31/2024 8:05 AM EDT [facility] MCV 87.6 80.0 - 100.0 fL 10/31/2024 8:05 AM EDT [facility] MCH 30.7 27.0 - 33.0 pg 10/31/2024 8:05 AM EDT [facility] MCHC 35.0 32.0 - 36.0 g/dL 10/31/2024 8:05 AM EDT [facility] RDW 17.9(H) 11.0 - 15.0 % 10/31/2024 8:05 AM EDT [facility] Platelets 44(L) 140 - 400 10E3/uL 10/31/2024 8:05 AM EDT [facility] Comment: CNV Specimen checked for clots. None detected. MPV 8.9 7.5 - 11.5 fL 10/31/2024 8:05 AM EDT [facility] Whole Blood 10/31/2024 6:40 AM EDT 10/31/2024 7:34 AM EDT us [facility] HOSPITAL LAB BLOOD ORDERABLES Denisse l Result [facility] [address] * (ABNORMAL) POC Glucose Monitoring Device (10/30/2024 9:01 PM EDT) POC Glucose Monitoring Device 144(H) 70 - 100 mg/dL 10/30/2024 9:02 PM EDT [facility] Blood 10/30/2024 9:01 PM EDT 10/30/2024 9:01 PM EDT us Semaj Mcnair III, MD POINT OF CARE TEST ORDERABLES Final Result [facility] [address] * (ABNORMAL) POC Glucose Monitoring Device (10/30/2024 5:37 PM EDT) POC Glucose Monitoring Device 124(H) 70 - 100 mg/dL 10/30/2024 5:47 PM EDT [facility] Blood 10/30/2024 5:37 PM EDT 10/30/2024 5:47 PM EDT Semaj Mcnair III, MD POINT OF CARE TEST ORDERABLES Final Result Performing Organization Address [facility] Co de Phone Number [facility] [address] [place] [address] * (ABNORMAL) POC Glucose Monitoring Device (10/30/2024 7:26 AM EDT) POC Glucose Monitoring Device 150(H) 70 - 100 mg/dL 10/30/2024 7:27 AM EDT [facility] Blood 10/30/2024 7:26 AM EDT 10/30/2024 7:27 AM EDT eSmaj Mcnair III, MD POINT OF CARE TEST ORDERABLES Final Result Performing Organization Address [facility] de Phone Number [facility]. [address] * Tacrolimus level (10/30/2024 7:13 AM EDT) Tacrolimus (LC-MS) 9.5 3.0 - 15.0 ng/mL 10/30/2024 2:53 PM EDT [facility] Comment:Performed via liquid chromatography tandem mass spectrometry. Detection limit: 1 ng/mL. Individual target concentrations may vary due to target organ and time after transplant. This test has been developed and its performance characteristics determined by [facility] which is certified under [...] 7:13 AM EDT 10/30/2024 7:26 AM EDT [facility] LAB BLOOD ORDERABLES Final Re sult [facility] [address] [place] [address], [facility] * ECG 12-lead (MUSE) (10/30/2024 6:51 AM EDT) 10/30/2024 6:51 AM EDT Narrative MUSE - 11/01/2024 9:21 AM EDT Ventricular Rate: 92 BPM Atrial Rate: 92 BPM P-R Interval: 174 ms QRS Duration: 96 ms QT: 376 ms QTc: 464 ms P Winsted: 54 degrees R Winsted: -24 degrees T Winsted: 11 degrees Diagnosis Line: NORMAL SINUS RHYTHM ^ NORMAL ECG ^ ^ Confirmed by MD JOE, KIMBERLYIIA ([id number]) on 11/01/2024 9:21:09 AM [employer] ECG ORDERABLES Final Result Performing Organization Address City/[facility]/ZIP Co de Phone Number MUSE * (ABNORMAL) Renal Function Panel w/EGFR (10/30/2024 5:41 AM EDT) Sodium 140 133 - 146 mmol/L 10/30/2024 6:18 AM EDT [facility] Potassium 3.8 3.5 - 5.3 mmol/L 10/30/2024 6:18 AM EDT [facility] Chloride 111(H) 98 - 110 mmol/L 10/30/2024 6:18 AM EDT [facility] CO2 17(L) 21 - 33 mmol/L 10/30/2024 6:18 AM EDT [facility] Anion Gap 12 3 - 16 mmol/L 10/30/2024 6:18 AM EDT [facility] BUN 62(H) 7 - 25 mg/dL 10/30/2024 6:18 AM EDT [facility] Creatinine 1.96(H) 0.60 - 1.30 mg/dL 10/30/2024 6:18 AM EDT [facility] Glucose 116(H) 70 - 100 mg/dL 10/30/2024 6:18 AM EDT [facility] Calcium 9.0 8.6 - 10.3 mg/dL 10/30/2024 6:18 AM EDT [facility] Phosphorus 4.6 2.1 - 4.7 mg/dL 10/30/2024 6:18 AM EDT [facility] Albumin 3.2(L) 3.5 - 5.7 g/dL 10/30/2024 6:18 AM EDT [facility] Osmolality, Calculated 309(H) 278 - 305 mOsm/kg 10/30/2024 6:18 AM EDT [facility] EGFR 43 10/30/2024 6:18 AM EDT [facility] Comment:As of [...] M, Olivia DC, Emerita ND, Madelyn CRUZ, Fleicia LA, et al. A Unifying Approach for GFR Estimation: Recommendations of the NKF-ASN Task Force on Reassessing the inclusion of Race in Diagnosing Kidney Disease. Am J Kidney Dis. 2020. Plasma 10/30/2024 5:41 AM EDT 10/30/2024 5:47 AM EDT [employer] LAB BLOOD ORDERABLES Denisse l Result [facility] [address] [place], [place] [address] * Magnesium (10/30/2024 5:41 AM EDT) Magnesium 2.2 1.5 - 2.5 mg/dL 10/30/2024 6:18 AM EDT [facility] Plasma 10/30/2024 5:41 AM EDT 10/30/2024 5:47 AM EDT [employer] [facility] BLOOD ORDERABLES Denisse l Result [facility] [address] * (ABNORMAL) Hepatic Function Panel (10/30/2024 5:41 AM EDT) Total Bilirubin 3.6(H) 0.0 - 1.5 mg/dL 10/30/2024 6:18 AM EDT [facility] Bilirubin, Direct 1.95(H) 0.00 - 0.40 mg/dL 10/30/2024 6:18 AM EDT [facility] AST 33 13 - 39 U/L 10/30/2024 6:18 AM EDT [facility] ALT 71(H) 7 - 52 U/L 10/30/2024 6:18 AM EDT [facility] Alkaline Phosphatase 80 36 - 125 U/L 10/30/2024 6:18 AM EDT [facility] Total Protein 4.8(L) 6.4 - 8.9 g/dL 10/30/2024 6:18 AM EDT [facility] Albumin 3.2(L) 3.5 - 5.7 g/dL 10/30/2024 6:18 AM EDT [facility] Bilirubin, Indirect 1.65(H) 0.00 - 1.10 mg/dL 10/30/2024 6:18 AM EDT [facility] Plasma 10/30/2024 5:41 AM EDT 10/30/2024 5:47 AM EDT Beata Horner [facility] BLOOD ORDERABLES Denisse l Result [facility] [address] [facility] [place] [address], [facility] * (ABNORMAL) CBC (10/30/2024 5:41 AM EDT) WBC 8.1 3.8 - 10.8 10E3/uL 10/30/2024 8:06 AM EDT [facility] RBC 3.29(L) 4.20 - 5.80 10E6/uL 10/30/2024 8:06 AM EDT [facility] Hemoglobin 10.1(L) 13.2 - 17.1 g/dL 10/30/2024 8:06 AM EDT [facility] Hematocrit 28.8(L) 38.5 - 50.0 % 10/30/2024 8:06 AM EDT [facility] MCV 87.6 80.0 - 100.0 fL 10/30/2024 8:06 AM EDT [facility] MCH 30.6 27.0 - 33.0 pg 10/30/2024 8:06 AM EDT [facility] MCHC 34.9 32.0 - 36.0 g/dL 10/30/2024 8:06 AM EDT [facility] RDW 18.1(H) 11.0 - 15.0 % 10/30/2024 8:06 AM EDT [facility] Platelets 44(L) 140 - 400 10E3/uL 10/30/2024 8:06 AM EDT [facility] Comment: CNV Specimen checked for clots. None detected. MPV 8.3 7.5 - 11.5 fL 10/30/2024 8:06 AM EDT [facility] Whole Blood 10/30/2024 5:41 AM EDT 10/30/2024 5:50 AM EDT us Beata Horner [facility] BLOOD ORDERABLES Denisse l Result [facility] [address] * (ABNORMAL) POC Glucose Monitoring Device (10/29/2024 10:18 PM EDT) POC Glucose Monitoring Device 140(H) 70 - 100 mg/dL 10/29/2024 10:18 PM EDT [facility] Blood 10/29/2024 10:1 8 PM EDT 10/29/2024 10:18 PM EDT Semaj Mcnair III, MD POINT OF CARE TEST ORDERABLES Final Result [facility] [address] [facility]. [address] * (ABNORMAL) POC Glucose Monitoring Device (10/29/2024 6:42 PM EDT) POC Glucose Monitoring Device 152(H) 70 - 100 mg/dL 10/29/2024 6:43 PM EDT [facility] Blood 10/29/2024 6:42 PM EDT 10/29/2024 6:43 PM EDT Semaj Mcnair III, MD POINT OF CARE TEST ORDERABLES Final Result [address] * (ABNORMAL) POC Glucose Monitoring Device (10/29/2024 11:35 AM EDT) POC Glucose Monitoring Device 130(H) 70 - 100 mg/dL 10/29/2024 11:36 AM EDT [facility] Blood 10/29/2024 11:3 5 AM EDT 10/29/2024 11:36 AM EDT Semaj Mcnair III, MD POINT OF CARE TEST ORDERABLES Final Result [facility] [address] [place] [address]. [address] * ECG 12 lead (MUSE) (10/29/2024 9:34 AM EDT) 10/29/2024 9:34 AM EDT Narrative MUSE - 10/29/2024 10:34 PM EDT Ventricular Rate: 97 BPM Atrial Rate: 97 BPM P-R Interval: 186 ms QRS Duration: 104 ms QT: 382 ms QTc: 485 ms P Winsted: 54 degrees R Winsted: -21 degrees T Winsted: 1 degrees Diagnosis Line: NORMAL SINUS RHYTHM ^ NORMAL ECG ^ Confirmed by JORGE MACIAS ([id number]) on 10/29/2024 10:34:50 PM Afshan Bear MD ECG ORDERABLES Final Result Performing Organization Address [facility] Co de Phone Number MUSE * Tacrolimus level (10/29/2024 8:08 AM EDT) Pathologist [facility] Tacrolimus (LC-MS) 10.4 3.0 - 15.0 ng/mL 10/29/2024 2:07 PM EDT [facility] Comment:Performed via liquid chromatography tandem mass spectrometry. Detection limit: 1 ng/mL. Individual target concentrations may vary due to target organ and time after transplant. This test has been developed and its performance characteristics determined by [facility] which is certified under the Clinical [...] EDT 10/29/2024 8:21 AM EDT Priti Geiger [facility] BLOOD ORDERABLES Final Re sult Performing Organization Address [facility] Co de Phone Number [facility] [address] * Prepare RBC, leukoreduced, 1 Units (10/29/2024 6:16 AM EDT) Product Code K1922K91 [facility] Unit Number [id number] [facility] Dispense Status Presumed Transfused_PT [facility] Blood Expiration Date [id number] [facility] Coding System [id number] [facility] Blood Bank Product Shay Plata MD BLOOD BANK PRODUCT O RDERABLES Final Result Performing Organization Address City/[facility] Co de Phone Number HCLL * Prepare RBC, leukoreduced, 1 Units (10/29/2024 6:15 AM EDT) Product Code W7351G40 [facility] Unit Number [id number] [facility] Dispense Status Presumed Transfused_PT [facility] Blood Expiration Date [id number] HCLL Coding System [id number] [facility] Blood Bank Product Carlos Marks MD BLOOD BANK PRODUCT ORDERABL ES Final Result [facility] * Prepare RBC, leukoreduced, 1 Units (10/29/2024 6:15 AM EDT) Product Code L6738M35 [facility] Unit Number [id number] [facility] Dispense Status Presumed Transfused_PT [facility] Blood Expiration Date [id number] HCLL Coding System [id number] [facility] Blood Bank Product John Moreno MD BLOOD BANK PRODUCT ORDERABLE S Final Result [facility] * (ABNORMAL) Renal Function Panel w/EGFR (10/29/2024 5:07 AM EDT) Sodium 144 133 - 146 mmol/L 10/29/2024 5:49 AM EDT [facility] Potassium 3.8 3.5 - 5.3 mmol/L 10/29/2024 5:49 AM EDT [facility] Chloride 113(H) 98 - 110 mmol/L 10/29/2024 5:49 AM EDT [facility] CO2 17(L) 21 - 33 mmol/L 10/29/2024 5:49 AM EDT [facility] Anion Gap 14 3 - 16 mmol/L 10/29/2024 5:49 AM EDT [facility] BUN 57(H) 7 - 25 mg/dL 10/29/2024 5:49 AM EDT [facility] Creatinine 1.93(H) 0.60 - 1.30 mg/dL 10/29/2024 5:49 AM EDT [facility] Glucose 110(H) 70 - 100 mg/dL 10/29/2024 5:49 AM EDT [facility] Calcium 9.3 8.6 - 10.3 mg/dL 10/29/2024 5:49 AM EDT [facility] Phosphorus 4.8(H) 2.1 - 4.7 mg/dL 10/29/2024 5:49 AM EDT [facility] Albumin 3.5 3.5 - 5.7 g/dL 10/29/2024 5:49 AM EDT [facility] Osmolality, Calculated 314(H) 278 - 305 mOsm/kg 10/29/2024 5:49 AM EDT [facility] EGFR 44 10/29/2024 5:49 AM EDT [facility] Comment:As of [...] 10/29/2024 5:13 AM EDT Beata Horner [employer] LAB BLOOD ORDERABLES Denisse l Result [facility] [address] [place], [place] [address] * Magnesium (10/29/2024 5:07 AM EDT) Magnesium 2.1 1.5 - 2.5 mg/dL 10/29/2024 5:49 AM EDT [facility] Plasma 10/29/2024 5:07 AM EDT 10/29/2024 5:13 AM EDT [employer] LAB BLOOD ORDERABLES Denisse l Result Performing Organization Address [facility]/ZIP Co de Phone Number [facility] [address] [facility]. [address] * (ABNORMAL) Hepatic Function Panel (10/29/2024 5:07 AM EDT) Total Bilirubin 4.2(H) 0.0 - 1.5 mg/dL 10/29/2024 5:49 AM EDT [facility] Bilirubin, Direct 2.85(H) 0.00 - 0.40 mg/dL 10/29/2024 5:49 AM EDT [facility] AST 31 13 - 39 U/L 10/29/2024 5:49 AM EDT [facility] ALT 88(H) 7 - 52 U/L 10/29/2024 5:49 AM EDT [facility] Alkaline Phosphatase 51 36 - 125 U/L 10/29/2024 5:49 AM EDT [facility] Total Protein 5.2(L) 6.4 - 8.9 g/dL 10/29/2024 5:49 AM EDT [facility] Albumin 3.5 3.5 - 5.7 g/dL 10/29/2024 5:49 AM EDT [facility] Bilirubin, Indirect 1.35(H) 0.00 - 1.10 mg/dL 10/29/2024 5:49 AM EDT [facility] Plasma 10/29/2024 5:07 AM EDT 10/29/2024 5:13 AM EDT Beata Horner [facility] BLOOD ORDERABLES Denisse l Result Performing Organization Address [facility]/State/ZIP Co de Phone Number [facility] [address] [facility]. [address] * (ABNORMAL) CBC (10/29/2024 5:07 AM EDT) WBC 7.8 3.8 - 10.8 10E3/uL 10/29/2024 5:38 AM EDT [facility] RBC 3.05(L) 4.20 - 5.80 10E6/uL 10/29/2024 5:38 AM EDT [facility] Hemoglobin 9.0(L) 13.2 - 17.1 g/dL 10/29/2024 5:38 AM EDT [facility] Hematocrit 26.7(L) 38.5 - 50.0 % 10/29/2024 5:38 AM EDT [facility] MCV 87.4 80.0 - 100.0 fL 10/29/2024 5:38 AM EDT [facility] MCH 29.7 27.0 - 33.0 pg 10/29/2024 5:38 AM EDT [facility] MCHC 33.9 32.0 - 36.0 g/dL 10/29/2024 5:38 AM EDT [facility] RDW 18.3(H) 11.0 - 15.0 % 10/29/2024 5:38 AM EDT [facility] Platelets 41(L) 140 - 400 10E3/uL 10/29/2024 5:38 AM EDT [facility] Comment: CNV Specimen checked for clots. None detected. MPV 7.5 7.5 - 11.5 fL 10/29/2024 5:38 AM EDT [facility] Whole Blood 10/29/2024 5:07 AM EDT 10/29/2024 5:13 AM EDT Beata Horner [facility] BLOOD ORDERABLES Denisse valle Result [facility] [address] [place] [place] [address], [facility] * (ABNORMAL) TEG-Bypass/ECMO/Liver HN (Factor function, Platelet/Fibrin Clot Strength w/Clot Breakdown, Heparinase In All Channels) (10/29/2024 5:07 AM EDT) Citrated Kaolin Reaction Time (TEGECMOLIVER) 8.9 4.6 - 9.1 minutes 10/29/2024 7:04 AM EDT [facility] Citrated Kaolin W/Heparinase Reaction Time (TEGECMOLIVER) 7.4 4.3 - 8.3 minutes 10/29/2024 7:04 AM EDT [facility] Citrated Kaolin Maximum Amplitude (TEGECMOLIVER) 52.9 52.0 - 69.0 mm 10/29/2024 7:04 AM EDT [facility] Citrated Functional Fibrinogen W/Heparinase Maximum Amplitude(TEGEC MOLIVER) 20.7 15.0 - 34.0 mm 10/29/2024 7:04 AM EDT [facility] Citrated Rapid Teg W/Heparinase Maximum Amplitude (TEGECMOLIVER) 49.7(L) 53.0 - 69.0 mm 10/29/2024 7:04 AM EDT [facility] Citrated Kaolin w/Heparinase Percent Lysis (TEGECMOLIVER) 0.0 0.0 - 3.2 % 10/29/2024 7:04 AM EDT [facility] Whole Blood (Citrate) 10/29/2024 5:07 AM EDT 10/29/2024 5:10 AM EDT Kemar Sahni MD LAB BLOOD ORDERABLES Final Result Performing Organization Address City/State/[facility] Co de Phone Number [facility] [address] * (ABNORMAL) TEG-Bypass/ECMO/Liver HN (Factor function, Platelet/Fibrin Clot Strength w/Clot Breakdown, Heparinase In All Channels) (10/28/2024 11:55 PM EDT) [facility] Citrated Kaolin Reaction Time (TEGECMOLIVER) 8.6 4.6 - 9.1 minutes 10/29/2024 2:01 AM EDT [facility] Citrated Kaolin W/Heparinase Reaction Time (TEGECMOLIVER) 8.7(H) 4.3 - 8.3 minutes 10/29/2024 2:01 AM EDT [facility] Citrated Kaolin Maximum Amplitude (TEGECMOLIVER) 47.9(L) 52.0 - 69.0 mm 10/29/2024 2:01 AM EDT [facility] Citrated Functional Fibrinogen W/Heparinase Maximum Amplitude(TEGEC MOLIVER) 22.0 15.0 - 34.0 mm 10/29/2024 2:01 AM EDT [facility] Citrated Rapid Teg W/Heparinase Maximum Amplitude (TEGECMOLIVER) 45.9(L) 53.0 - 69.0 mm 10/29/2024 2:01 AM EDT [facility] Citrated Kaolin w/Heparinase Percent Lysis (TEGECMOLIVER) 0.0 0.0 - 3.2 % 10/29/2024 2:01 AM EDT [facility] Whole Blood (Citrate) 10/28/2024 11:55 PM EDT 10/28/2024 11:58 PM EDT us Kemar Sahni MD LAB BLOOD ORDERABLES Final Result [facility] [address] [place] [address], [facility] * (ABNORMAL) CBC, STAT (10/28/2024 8:04 PM EDT) WBC 3.9 3.8 - 10.8 10E3/uL 10/28/2024 8:36 PM EDT [facility] RBC 2.66(L) 4.20 - 5.80 10E6/uL 10/28/2024 8:36 PM EDT [facility] Hemoglobin 8.0(L) 13.2 - 17.1 g/dL 10/28/2024 8:36 PM EDT [facility] Hematocrit 23.0(L) 38.5 - 50.0 % 10/28/2024 8:36 PM EDT [facility] MCV 86.4 80.0 - 100.0 fL 10/28/2024 8:36 PM EDT [facility] MCH 29.9 27.0 - 33.0 pg 10/28/2024 8:36 PM EDT [facility] MCHC 34.6 32.0 - 36.0 g/dL 10/28/2024 8:36 PM EDT [facility] RDW 18.6(H) 11.0 - 15.0 % 10/28/2024 8:36 PM EDT [facility] Platelets 29(L) 140 - 400 10E3/uL 10/28/2024 8:36 PM EDT [facility] Comment: CNV Specimen checked for clots. None detected. MPV 7.8 7.5 - 11.5 fL 10/28/2024 8:36 PM EDT [facility] Whole Blood 10/28/2024 8:04 PM EDT 10/28/2024 8:14 PM EDT Carlos Marks MD LAB BLOOD ORDERABLES Final Result [facility] [address] * (ABNORMAL) POC Glucose Monitoring Device (10/28/2024 8:03 PM EDT) POC Glucose Monitoring Device 122(H) 70 - 100 mg/dL 10/28/2024 8:04 PM EDT [facility] Blood 10/28/2024 8:03 PM EDT 10/28/2024 8:04 PM EDT Semaj Mcnair III, MD POINT OF CARE TEST ORDERABLES Final Result Performing Organization Address [facility] Co de Phone Number [facility] [address] * (ABNORMAL) TEG-Bypass/ECMO/Liver HN (Factor function, Platelet/Fibrin Clot Strength w/Clot Breakdown, Heparinase In All Channels) (10/28/2024 6:39 PM EDT) Citrated Kaolin Reaction Time (TEGECMOLIVER) 9.0 4.6 - 9.1 minutes 10/28/2024 7:50 PM EDT [facility] Citrated Kaolin W/Heparinase Reaction Time (TEGECMOLIVER) 8.3 4.3 - 8.3 minutes 10/28/2024 7:50 PM EDT [facility] Citrated Kaolin Maximum Amplitude (TEGECMOLIVER) 47.6(L) 52.0 - 69.0 mm 10/28/2024 7:50 PM EDT [facility] Citrated Functional Fibrinogen W/Heparinase Maximum Amplitude(TEGEC MOLIVER) 20.4 15.0 - 34.0 mm 10/28/2024 7:50 PM EDT [facility] Citrated Rapid Teg W/Heparinase Maximum Amplitude (TEGECMOLIVER) 44.0(L) 53.0 - 69.0 mm 10/28/2024 7:50 PM EDT [facility] Citrated Kaolin w/Heparinase Percent Lysis (TEGECMOLIVER) 0.0 0.0 - 3.2 % 10/28/2024 7:50 PM EDT [facility] Whole Blood (Citrate) 10/28/2024 6:39 PM EDT 10/28/2024 6:42 PM EDT us Kemar Sahni MD LAB BLOOD ORDERABLES Final Result Performing Organization Address [facility] Co de Phone Number [facility] [address] [facility]. [address] * (ABNORMAL) POC Glucose Monitoring Device (10/28/2024 5:31 PM EDT) [facility] POC Glucose Monitoring Device 130(H) 70 - 100 mg/dL 10/28/2024 5:31 PM EDT [facility] Blood 10/28/2024 5:31 PM EDT 10/28/2024 5:31 PM EDT us Semaj Mcnair III, MD POINT OF CARE TEST ORDERABLES Final Result Performing Organization Address [facility] Co de Phone Number [facility] [address] [facility] * Transfuse RBC Transfusion Rate: Per dept routine (10/28/2024 5:23 PM EDT) us Shay Plata MD NURSING TREATMENT OR DERABLES - BLOOD ADMIN Final Result Performing Organization Address City/[facility]/ZIP Co de Phone Number EXTERNAL * Transfuse RBC Transfusion Rate: Per dept routine, 1 Units (10/28/2024 5:23 PM EDT) us Shay Plata MD NURSING TREATMENT OR DERABLES - BLOOD ADMIN Final Result Performing Organization Address City/[facility]/ZIP Co de Phone Number EXTERNAL * [...] EXAM: US ABDOMEN LIMITED EXAM: US DUPLEX [id number] COMPLETE INDICATION: Post-op liver transplant DATE: 10/28/2024 [...] retrohepatic inferior vena cava is patent. The [place] right kidney is partially visualized. A prominent [...] EXAM: US ABDOMEN LIMITED EXAM: US DUPLEX [id number] COMPLETE INDICATION: Post-op liver transplant DATE: 10/28/2024 [...] retrohepatic inferior vena cava is patent. The [place] right kidney is partially visualized. A prominent [...] ORDERABLES Fi nal Result * US Duplex Izm-Lan-Rhtgpku Comp (10/28/2024 4:23 PM EDT) Anatomical Region [...] EXAM: US ABDOMEN LIMITED EXAM: US DUPLEX [id number] COMPLETE INDICATION: Post-op liver transplant DATE: 10/28/2024 [...] retrohepatic inferior vena cava is patent. The [place] right kidney is partially visualized. A prominent [...] EXAM: US ABDOMEN LIMITED EXAM: US DUPLEX [id number] COMPLETE INDICATION: Post-op liver transplant DATE: 10/28/2024 [...] retrohepatic inferior vena cava is patent. The [place] right kidney is partially visualized. A prominent [...] IM US ORDERABLES Fi nal Result * (ABNORMAL) CBC, STAT (10/28/2024 2:49 PM EDT) WBC 4.0 3.8 - 10.8 10E3/uL 10/28/2024 3:07 PM EDT [facility] RBC 2.44(L) 4.20 - 5.80 10E6/uL 10/28/2024 3:07 PM EDT [facility] Hemoglobin 7.5(L) 13.2 - 17.1 g/dL 10/28/2024 3:07 PM EDT [facility] Hematocrit 21.4(L) 38.5 - 50.0 % 10/28/2024 3:07 PM EDT [facility] MCV 87.6 80.0 - 100.0 fL 10/28/2024 3:07 PM EDT [facility] MCH 30.6 27.0 - 33.0 pg 10/28/2024 3:07 PM EDT [facility] MCHC 34.9 32.0 - 36.0 g/dL 10/28/2024 3:07 PM EDT [facility] RDW 18.4(H) 11.0 - 15.0 % 10/28/2024 3:07 PM EDT [facility] Platelets 30(L) 140 - 400 10E3/uL 10/28/2024 3:07 PM EDT [facility] Comment: CNV Specimen checked for clots. None detected. MPV 7.7 7.5 - 11.5 fL 10/28/2024 3:07 PM EDT [facility] Whole Blood 10/28/2024 2:49 PM EDT 10/28/2024 2:53 PM EDT Carlos Marks MD LAB BLOOD ORDERABLES Final Result Performing Organization Address [facility] Co de Phone Number [facility] [address] * ECG 12 lead (MUSE) (10/28/2024 1:22 PM EDT) 10/28/2024 1:22 PM EDT Narrative MUSE - 10/29/2024 10:34 PM EDT Ventricular Rate: 104 BPM Atrial Rate: 104 BPM P-R Interval: 172 ms QRS Duration: 90 ms QT: 354 ms QTc: 465 ms P [place]: 58 degrees R [place]: -19 degrees T [place]: 38 degrees Diagnosis Line: SINUS TACHYCARDIA ^ OTHERWISE NORMAL ECG ^ ^ Confirmed by JORGE MACIAS ([id number]) on 10/29/2024 10:34:22 PM Hillary Fernandes PharmD ECG ORDERABLES Final Res ult Performing Organization Address [facility] de Phone Number MUSE * (ABNORMAL) POC Glucose Monitoring Device (10/28/2024 12:54 PM EDT) [facility] POC Glucose Monitoring Device 119(H) 70 - 100 mg/dL 10/28/2024 12:55 PM EDT [facility] Blood 10/28/2024 12:5 4 PM EDT 10/28/2024 12:55 PM EDT Semaj Mcnair III, MD POINT OF CARE TEST ORDERABLES Final Result Performing Organization Address [facility] Co de Phone Number [facility] [address] [place] [address], [facility] * Transfuse RBC Transfusion Rate: Per dept routine (10/28/2024 12:31 PM EDT) Carlos Marks MD NURSING TREATMENT ORDERABLE S - BLOOD ADMIN Final Result Performing Organization Address [facility] Co de Phone Number EXTERNAL * Transfuse RBC Transfusion Rate: Per dept routine, 1 Units (10/28/2024 12:31 PM EDT) us Carlos Marks MD NURSING TREATMENT ORDERABLE S - BLOOD ADMIN Final Result EXTERNAL * Protime-INR, STAT (10/28/2024 11:09 AM EDT) Protime 14.3 12.1 - 15.1 seconds 10/28/2024 11:29 AM EDT [facility] INR 1.1 0.9 - 1.1 10/28/2024 11:29 AM EDT [facility] Comment: RECOMMENDED THERAPEUTIC RANGES USING INR : Stable oral anticoagulant therapy: 2.0 - 3.0 Mechanical prosthetic heart valve: 2.5 - 3.5 Recurrent acute myocardial infarction: 2.5 - 3.5 Plasma 10/28/2024 11:0 9 AM EDT 10/28/2024 11:16 AM EDT us Carlos Marks MD LAB BLOOD ORDERABLES Final Result Performing Organization Address [facility] de Phone Number [facility] [address] * (ABNORMAL) Lactic Acid, STAT (10/28/2024 11:09 AM EDT) Lactate 0.3(L) 0.5 - 2.2 mmol/L 10/28/2024 11:37 AM EDT [facility] Plasma 10/28/2024 11:0 9 AM EDT 10/28/2024 11:15 AM EDT us Carlos Marks MD LAB BLOOD ORDERABLES Final Result Performing Organization Address City/[facility]/ZIP Co de Phone Number [facility] [address] * Magnesium, STAT (10/28/2024 11:09 AM EDT) Magnesium 2.1 1.5 - 2.5 mg/dL 10/28/2024 11:47 AM EDT [facility] Plasma 10/28/2024 11:0 9 AM EDT 10/28/2024 11:16 AM EDT Carlos Marks MD LAB BLOOD ORDERABLES Final Result [facility] [address] [place] [id number], [facility] * (ABNORMAL) Renal Function Panel w/EGFR, STAT (10/28/2024 11:09 AM EDT) Sodium 144 133 - 146 mmol/L 10/28/2024 11:47 AM EDT [facility] Potassium 3.4(L) 3.5 - 5.3 mmol/L 10/28/2024 11:47 AM EDT [facility] Chloride 112(H) 98 - 110 mmol/L 10/28/2024 11:47 AM EDT [facility] CO2 22 21 - 33 mmol/L 10/28/2024 11:47 AM EDT [facility] Anion Gap 10 3 - 16 mmol/L 10/28/2024 11:47 AM EDT [facility] BUN 57(H) 7 - 25 mg/dL 10/28/2024 11:47 AM EDT [facility] Creatinine 2.01(H) 0.60 - 1.30 mg/dL 10/28/2024 11:47 AM EDT [facility] Glucose 108(H) 70 - 100 mg/dL 10/28/2024 11:47 AM EDT [facility] Calcium 8.8 8.6 - 10.3 mg/dL 10/28/2024 11:47 AM EDT [facility] Phosphorus 4.0 2.1 - 4.7 mg/dL 10/28/2024 11:47 AM EDT [facility] Albumin 3.3(L) 3.5 - 5.7 g/dL 10/28/2024 11:47 AM EDT [facility] Osmolality, Calculated 314(H) 278 - 305 mOsm/kg 10/28/2024 11:47 AM EDT [facility] EGFR 42 10/28/2024 11:47 AM EDT [facility] Comment:As of [...] MD LAB BLOOD ORDERABLES Final Result [facility] [address] * (ABNORMAL) TEG-Bypass/ECMO/Liver HN (Factor function, Platelet/Fibrin Clot Strength w/Clot Breakdown, Heparinase In All Channels) (10/28/2024 11:09 AM EDT) [facility] Citrated Kaolin Reaction Time (TEGECMOLIVER) 9.2(H) 4.6 - 9.1 minutes 10/28/2024 12:30 PM EDT [facility] Citrated Kaolin W/Heparinase Reaction Time (TEGECMOLIVER) 9.6(H) 4.3 - 8.3 minutes 10/28/2024 12:30 PM EDT [facility] Citrated Kaolin Maximum Amplitude (TEGECMOLIVER) 51.2(L) 52.0 - 69.0 mm 10/28/2024 12:30 PM EDT [facility] Citrated Functional Fibrinogen W/Heparinase Maximum Amplitude(TEGEC MOLIVER) 21.6 15.0 - 34.0 mm 10/28/2024 12:30 PM EDT [facility] Citrated Rapid Teg W/Heparinase Maximum Amplitude (TEGECMOLIVER) 49.3(L) 53.0 - 69.0 mm 10/28/2024 12:30 PM EDT [facility] Citrated Kaolin w/Heparinase Percent Lysis (TEGECMOLIVER) 0.0 0.0 - 3.2 % 10/28/2024 12:30 PM EDT [facility] Whole Blood (Citrate) 10/28/2024 11:09 AM EDT 10/28/2024 11:14 AM EDT us Kemar Sahni MD LAB BLOOD ORDERABLES Final Result [facility] [address] [place], [place] [address] * (ABNORMAL) CBC (10/28/2024 10:21 AM EDT) WBC 4.1 3.8 - 10.8 10E3/uL 10/28/2024 10:41 AM EDT [facility] RBC 2.30(L) 4.20 - 5.80 10E6/uL 10/28/2024 10:41 AM EDT [facility] Hemoglobin 7.1(L) 13.2 - 17.1 g/dL 10/28/2024 10:41 AM EDT [facility] Hematocrit 20.4(L) 38.5 - 50.0 % 10/28/2024 10:41 AM EDT [facility] MCV 88.5 80.0 - 100.0 fL 10/28/2024 10:41 AM EDT [facility] MCH 30.7 27.0 - 33.0 pg 10/28/2024 10:41 AM EDT [facility] MCHC 34.7 32.0 - 36.0 g/dL 10/28/2024 10:41 AM EDT [facility] RDW 18.7(H) 11.0 - 15.0 % 10/28/2024 10:41 AM EDT [facility] Platelets 37(L) 140 - 400 10E3/uL 10/28/2024 10:41 AM EDT [facility] Comment: CNV Specimen checked for clots. None detected. MPV 7.6 7.5 - 11.5 fL 10/28/2024 10:41 AM EDT [facility] Whole Blood 10/28/2024 10:2 1 AM EDT 10/28/2024 10:29 AM EDT Carlos Marks MD LAB BLOOD ORDERABLES Final Result Performing Organization Address [facility]/ZIP Co de Phone Number [facility] [address] * POC Glucose Monitoring Device (10/28/2024 9:07 AM EDT) POC Glucose Monitoring Device 97 70 - 100 mg/dL 10/28/2024 9:08 AM EDT [facility] Blood 10/28/2024 9:07 AM EDT 10/28/2024 9:08 AM EDT Semaj Mcnair III, MD POINT OF CARE TEST ORDERABLES Final Result Performing Organization Address [facility] de Phone Number [facility] [address] * (ABNORMAL) Tacrolimus level (10/28/2024 8:20 AM EDT) Tacrolimus (LC-MS) <1.0(L) 3.0 - 15.0 ng/mL 10/28/2024 2:02 PM EDT [facility] Comment:Performed via liquid chromatography tandem mass spectrometry. Detection limit: 1 ng/mL. Individual target concentrations may vary due to target organ and time after transplant. This test has been developed and its performance characteristics determined by [facility] which is certified under [...] EDT 10/28/2024 8:29 AM EDT Priti Geiger [facility] BLOOD ORDERABLES Final Re sult Performing Organization Address [facility] Co de Phone Number [facility] [address] [facility]. [address] * (ABNORMAL) POC Glucose Monitoring Device (10/28/2024 8:10 AM EDT) POC Glucose Monitoring Device 102(H) 70 - 100 mg/dL 10/28/2024 8:11 AM EDT [facility] Blood 10/28/2024 8:10 AM EDT 10/28/2024 8:11 AM EDT Semaj Mcnair III, MD POINT OF CARE TEST ORDERABLES Final Result Performing Organization Address [facility] Co de Phone Number [facility] [address] [facility]. [address] * POC Glucose Monitoring Device (10/28/2024 6:17 AM EDT) POC Glucose Monitoring Device 100 70 - 100 mg/dL 10/28/2024 6:18 AM EDT [facility] Blood 10/28/2024 6:17 AM EDT 10/28/2024 6:18 AM EDT Semaj Mcnair III, MD POINT OF CARE TEST ORDERABLES Final Result Performing Organization Address [facility] Co de Phone Number [facility] [address] [facility] * Prepare Platelets, leukoreduced (10/28/2024 6:15 AM EDT) Product Code A2818V14 HCLL Unit Number [id number] HCLL Dispense Status Presumed Transfused_PT HCLL Blood Expiration Date HCLL Coding System [id number] HCLL Product Code D4844I04 HCLL Unit Number [id number] HCLL Dispense Status Presumed Transfused_PT HCLL Blood Expiration Date HCLL Coding System [id number] HCLL us Attending Provider Unknown BLOOD BANK PRODUCT OR DERABLES Final Result Performing Organization Address [facility] de Phone Number HCLL * Prepare Fresh Frozen Plasma (10/28/2024 6:15 AM EDT) Product Code P3714K56 HCLL Unit Number [id number] HCLL Dispense Status Released from Crossmatch_RE HCLL Blood Expiration Date HCLL Coding System [id number] HCLL Product Code B3781Y55 HCLL Unit Number [id number] HCLL Dispense Status Presumed Transfused_PT HCLL Blood Expiration Date HCLL Coding System [id number] HCLL Product Code G1566Y15 HCLL Unit Number [id number] HCLL Dispense Status Released from Crossmatch_RE HCLL Blood Expiration Date HCLL Coding System SVYB128 HCLL Product Code Y6308L37 HCLL Unit Number [id number] HCLL Dispense Status Presumed Transfused_PT HCLL Blood Expiration Date HCLL Coding System EZCK950 HCLL Product Code D3057K40 HCLL Unit Number [id number] HCLL Dispense Status Released from Crossmatch_RE HCLL Blood Expiration Date [id number] HCLL Coding System [id number] HCLL us Attending Provider Unknown BLOOD BANK PRODUCT OR DERABLES Final Result Performing Organization Address [facility] Co de Phone Number HCLL * Prepare RBC, leukoreduced (10/28/2024 6:15 AM EDT) Product Code A4287Q02 HCLL Unit Number [id number] HCLL Dispense Status Released from Crossmatch_RE HCLL Blood Expiration Date [id number] HCLL Coding System [id number] HCLL Product Code Z2874H85 HCLL Unit Number [id number] HCLL Dispense Status Presumed Transfused_PT HCLL Blood Expiration Date 058025191505 HCLL Coding System VNYC734 HCLL Product Code U0409W57 HCLL Unit Number [id number] HCLL Dispense Status Released from Crossmatch_RE HCLL Blood Expiration Date 746263153236 HCLL Coding System RWMV505 HCLL Product Code A7123S33 HCLL Unit Number [id number] HCLL Dispense Status Presumed Transfused_PT HCLL Blood Expiration Date 480966864086 HCLL Coding System YFGY452 HCLL Product Code G1773E11 HCLL Unit Number [id number] HCLL Dispense Status Released from Crossmatch_RE HCLL Blood Expiration Date 451426292191 HCLL Coding System QGMX065 HCLL us Attending Provider Unknown BLOOD BANK PRODUCT OR DERABLES Final Result Performing Organization Address [facility]/ZIP Co de Phone Number HCLL * Prepare Platelets, leukoreduced, 1 Units (10/28/2024 6:15 AM EDT) Product Code I6331C69 HCLL Unit Number [id number] HCLL Dispense Status Presumed Transfused_PT HCLL Blood Expiration Date 097991564144 HCLL Coding System GDWS986 HCLL Blood Bank Product us John Pina MD BLOOD BANK PRODUCT ORDERABLES F inal Result HCLL * Prepare Cryoprecipitate, 1 Units (10/28/2024 6:15 AM EDT) Product Code N0421V32 HCLL Unit Number [id number] HCLL Dispense Status Presumed Transfused_PT HCLL Blood Expiration Date HCLL Coding System NQIX188 HCLL Product Code N1684H75 HCLL Unit Number [id number] HCLL Dispense Status Presumed Transfused_PT HCLL Blood Expiration Date HCLL Coding System VPBM552 HCLL Blood Bank Product John Pina MD BLOOD BANK PRODUCT ORDERABLES F inal Result Performing Organization Address [facility] de Phone Number HCLL * Prepare Fresh Frozen Plasma, 1 Units (10/28/2024 6:15 AM EDT) Product Code T6420E65 HCLL Unit Number [id number] HCLL Dispense Status Presumed Transfused_PT HCLL Blood Expiration Date 255861051959 HCLL Coding System [id number] HCLL Blood Bank Product John Pina MD BLOOD BANK PRODUCT ORDERABLES F inal Result Performing Organization Address [facility] Phone Number HCLL * Prepare Cryoprecipitate, 1 Units (10/28/2024 6:15 AM EDT) Product Code X7449G82 HCLL Unit Number [id number] HCLL Dispense Status Presumed Transfused_PT HCLL Blood Expiration Date 536160628539 HCLL Coding System WIBV541 HCLL Product Code Y2496F69 HCLL Unit Number [id number] HCLL Dispense Status Presumed Transfused_PT HCLL Blood Expiration Date 384465656785 HCLL Coding System GOFN474 HCLL Product Code A0785D41 HCLL Unit Number [id number] HCLL Dispense Status Presumed Transfused_PT HCLL Blood Expiration Date HCLL Coding System BDGS665 HCLL Product Code E8362J82 HCLL Unit Number [id number] HCLL Dispense Status Presumed Transfused_PT HCLL Blood Expiration Date 962715619809 HCLL Coding System KHMF160 HCLL Blood Bank Product John Pina MD BLOOD BANK PRODUCT ORDERABLES F inal Result Performing Organization Address [facility] de Phone Number HCLL * (ABNORMAL) POC Glucose Monitoring Device (10/28/2024 4:55 AM EDT) POC Glucose Monitoring Device 104(H) 70 - 100 mg/dL 10/28/2024 4:57 AM EDT [facility] Blood 10/28/2024 4:55 AM EDT 10/28/2024 4:57 AM EDT Semaj Mcnair III, MD POINT OF CARE TEST ORDERABLES Final Result [facility] [address] [place] [address], [facility] * TEG-Bypass/ECMO/Liver HN (Factor function, Platelet/Fibrin Clot Strength w/Clot Breakdown, Heparinase In All Channels) (10/28/2024 4:13 AM EDT) Citrated Kaolin Reaction Time (TEGECMOLIVER) 7.2 4.6 - 9.1 minutes 10/28/2024 5:38 AM EDT [facility] Citrated Kaolin W/Heparinase Reaction Time (TEGECMOLIVER) 7.8 4.3 - 8.3 minutes 10/28/2024 5:38 AM EDT [facility] Citrated Kaolin Maximum Amplitude (TEGECMOLIVER) 53.0 52.0 - 69.0 mm 10/28/2024 5:38 AM EDT [facility] Citrated Functional Fibrinogen W/Heparinase Maximum Amplitude(TEGEC MOLIVER) 21.4 15.0 - 34.0 mm 10/28/2024 5:38 AM EDT [facility] Citrated Rapid Teg W/Heparinase Maximum Amplitude (TEGECMOLIVER) 54.7 53.0 - 69.0 mm 10/28/2024 5:38 AM EDT [facility] Citrated Kaolin w/Heparinase Percent Lysis (TEGECMOLIVER) 0.0 0.0 - 3.2 % 10/28/2024 5:38 AM EDT [facility] Whole Blood (Citrate) 10/28/2024 4:13 AM EDT 10/28/2024 4:28 AM EDT Kemar Sahni MD LAB BLOOD ORDERABLES Final Result Performing Organization Address [facility] Co de Phone Number [facility] [address]. [address] * Protime-INR (10/28/2024 4:13 AM EDT) Protime 14.6 12.1 - 15.1 seconds 10/28/2024 4:53 AM EDT [facility] INR 1.1 0.9 - 1.1 10/28/2024 4:53 AM EDT [facility] Comment: RECOMMENDED THERAPEUTIC RANGES USING INR : Stable oral anticoagulant therapy: 2.0 - 3.0 Mechanical prosthetic heart valve: 2.5 - 3.5 Recurrent acute myocardial infarction: 2.5 - 3.5 Plasma 10/28/2024 4:13 AM EDT 10/28/2024 4:41 AM EDT Kemar Sahni MD LAB BLOOD ORDERABLES Final Result Performing Organization Address [facility] Co de Phone Number [facility] [address] [facility]. [address] * Magnesium (10/28/2024 4:13 AM EDT) Magnesium 2.2 1.5 - 2.5 mg/dL 10/28/2024 5:15 AM EDT [facility] Plasma 10/28/2024 4:13 AM EDT 10/28/2024 4:41 AM EDT Kemar Sahni MD LAB BLOOD ORDERABLES Final Result Performing Organization Address City/State/[facility] Co de Phone Number [facility] [address] [facility] * (ABNORMAL) Hepatic Function Panel (10/28/2024 4:13 AM EDT) Total Bilirubin 2.3(H) 0.0 - 1.5 mg/dL 10/28/2024 5:15 AM EDT [facility] Bilirubin, Direct 1.67(H) 0.00 - 0.40 mg/dL 10/28/2024 5:15 AM EDT [facility] AST 44(H) 13 - 39 U/L 10/28/2024 5:15 AM EDT [facility] ALT 101(H) 7 - 52 U/L 10/28/2024 5:15 AM EDT [facility] Alkaline Phosphatase 26(L) 36 - 125 U/L 10/28/2024 5:15 AM EDT [facility] Total Protein 4.5(L) 6.4 - 8.9 g/dL 10/28/2024 5:15 AM EDT [facility] Albumin 3.1(L) 3.5 - 5.7 g/dL 10/28/2024 5:15 AM EDT [facility] Bilirubin, Indirect 0.63 0.00 - 1.10 mg/dL 10/28/2024 5:15 AM EDT [facility] Plasma 10/28/2024 4:13 AM EDT 10/28/2024 4:41 AM EDT us Kemar Sahni MD LAB BLOOD ORDERABLES Final Result [facility] [address] [place] [address], [facility] * (ABNORMAL) Renal Function Panel w/EGFR (10/28/2024 4:13 AM EDT) Sodium 142 133 - 146 mmol/L 10/28/2024 5:15 AM EDT [facility] Potassium 3.5 3.5 - 5.3 mmol/L 10/28/2024 5:15 AM EDT [facility] Chloride 111(H) 98 - 110 mmol/L 10/28/2024 5:15 AM EDT [facility] CO2 22 21 - 33 mmol/L 10/28/2024 5:15 AM EDT [facility] Anion Gap 9 3 - 16 mmol/L 10/28/2024 5:15 AM EDT [facility] BUN 58(H) 7 - 25 mg/dL 10/28/2024 5:15 AM EDT [facility] Creatinine 2.24(H) 0.60 - 1.30 mg/dL 10/28/2024 5:15 AM EDT [facility] Glucose 103(H) 70 - 100 mg/dL 10/28/2024 5:15 AM EDT [facility] Calcium 9.1 8.6 - 10.3 mg/dL 10/28/2024 5:15 AM EDT [facility] Phosphorus 4.8(H) 2.1 - 4.7 mg/dL 10/28/2024 5:15 AM EDT [facility] Albumin 3.1(L) 3.5 - 5.7 g/dL 10/28/2024 5:15 AM EDT [facility] Osmolality, Calculated 310(H) 278 - 305 mOsm/kg 10/28/2024 5:15 AM EDT [facility] EGFR 37 10/28/2024 5:15 AM EDT [facility] Comment:As of [...] MD LAB BLOOD ORDERABLES Final Result [facility] [address] [place] [address], [facility] * (ABNORMAL) CBC (10/28/2024 4:13 AM EDT) WBC 4.5 3.8 - 10.8 10E3/uL 10/28/2024 5:09 AM EDT [facility] RBC 2.39(L) 4.20 - 5.80 10E6/uL 10/28/2024 5:09 AM EDT [facility] Hemoglobin 7.3(L) 13.2 - 17.1 g/dL 10/28/2024 5:09 AM EDT [facility] Hematocrit 21.0(L) 38.5 - 50.0 % 10/28/2024 5:09 AM EDT [facility] MCV 87.8 80.0 - 100.0 fL 10/28/2024 5:09 AM EDT [facility] MCH 30.5 27.0 - 33.0 pg 10/28/2024 5:09 AM EDT [facility] MCHC 34.7 32.0 - 36.0 g/dL 10/28/2024 5:09 AM EDT [facility] RDW 18.7(H) 11.0 - 15.0 % 10/28/2024 5:09 AM EDT [facility] Platelets 38(L) 140 - 400 10E3/uL 10/28/2024 5:09 AM EDT [facility] Comment: CNV Specimen checked for clots. None detected. MPV 7.6 7.5 - 11.5 fL 10/28/2024 5:09 AM EDT [facility] Whole Blood 10/28/2024 4:13 AM EDT 10/28/2024 4:41 AM EDT us Kemar Sahni MD LAB BLOOD ORDERABLES Final Result [facility] [address] [place] [address], [facility] * (ABNORMAL) POC Glucose Monitoring Device (10/28/2024 4:04 AM EDT) POC Glucose Monitoring Device 103(H) 70 - 100 mg/dL 10/28/2024 4:05 AM EDT [facility] Blood 10/28/2024 4:04 AM EDT 10/28/2024 4:05 AM EDT Semaj Mcnair III, MD POINT OF CARE TEST ORDERABLES Final Result Performing Organization Address [facility] Co de Phone Number [facility] [address] [facility]. [address] * (ABNORMAL) POC Glucose Monitoring Device (10/28/2024 3:00 AM EDT) POC Glucose Monitoring Device 106(H) 70 - 100 mg/dL 10/28/2024 3:01 AM EDT [facility] Blood 10/28/2024 3:00 AM EDT 10/28/2024 3:01 AM EDT Semaj Mcnair III, MD POINT OF CARE TEST ORDERABLES Final Result Performing Organization Address [facility] Co de Phone Number [facility] [address] [facility] * (ABNORMAL) POC Glucose Monitoring Device (10/28/2024 2:32 AM EDT) POC Glucose Monitoring Device 109(H) 70 - 100 mg/dL 10/28/2024 2:33 AM EDT [facility] Blood 10/28/2024 2:32 AM EDT 10/28/2024 2:33 AM EDT Semaj Mcnair III, MD POINT OF CARE TEST ORDERABLES Final Result Performing Organization Address [facility] Co de Phone Number [facility] [address] [place] [address]. [address] * (ABNORMAL) POC Glucose Monitoring Device (10/28/2024 2:14 AM EDT) POC Glucose Monitoring Device 115(H) 70 - 100 mg/dL 10/28/2024 2:15 AM EDT [facility] Blood 10/28/2024 2:14 AM EDT 10/28/2024 2:15 AM EDT Semaj Mcnair III, MD POINT OF CARE TEST ORDERABLES Final Result Performing Organization Address [facility] Co de Phone Number [facility] [address] * (ABNORMAL) POC Glucose Monitoring Device (10/28/2024 2:03 AM EDT) POC Glucose Monitoring Device 101(H) 70 - 100 mg/dL 10/28/2024 2:04 AM EDT [facility] Blood 10/28/2024 2:03 AM EDT 10/28/2024 2:04 AM EDT Semaj Mcnair III, MD POINT OF CARE TEST ORDERABLES Final Result Performing Organization Address [facility] de Phone Number [facility] [address] * Transfuse RBC Transfusion Rate: Per dept routine (10/28/2024 1:51 AM EDT) John Moreno MD NURSING TREATMENT ORDERABLES - BLOOD ADMIN Final Result Performing Organization Address [facility] Co de Phone Number EXTERNAL * Transfuse RBC Transfusion Rate: Per dept routine, 1 Units (10/28/2024 1:51 AM EDT) John Moreno MD NURSING TREATMENT ORDERABLES - BLOOD ADMIN Final Result Performing Organization Address [facility] de Phone Number EXTERNAL * (ABNORMAL) TEG-Bypass/ECMO/Liver HN (Factor function, Platelet/Fibrin Clot Strength w/Clot Breakdown, Heparinase In All Channels) (10/28/2024 12:05 AM EDT) Citrated Kaolin Reaction Time (TEGECMOLIVER) 7.5 4.6 - 9.1 minutes 10/28/2024 1:22 AM EDT [facility] Citrated Kaolin W/Heparinase Reaction Time (TEGECMOLIVER) 7.7 4.3 - 8.3 minutes 10/28/2024 1:22 AM EDT [facility] Citrated Kaolin Maximum Amplitude (TEGECMOLIVER) 54.4 52.0 - 69.0 mm 10/28/2024 1:22 AM EDT [facility] Citrated Functional Fibrinogen W/Heparinase Maximum Amplitude(TEGEC MOLIVER) 20.4 15.0 - 34.0 mm 10/28/2024 1:22 AM EDT [facility] Citrated Rapid Teg W/Heparinase Maximum Amplitude (TEGECMOLIVER) 51.0(L) 53.0 - 69.0 mm 10/28/2024 1:22 AM EDT [facility] Citrated Kaolin w/Heparinase Percent Lysis (TEGECMOLIVER) 0.0 0.0 - 3.2 % 10/28/2024 1:22 AM EDT [facility] Whole Blood (Citrate) 10/28/2024 12:05 AM EDT 10/28/2024 12:09 AM EDT Kemar Sahni MD LAB BLOOD ORDERABLES Final Result Performing Organization Address [facility]/ZIP Co de Phone Number [facility] [address] * Magnesium (10/28/2024 12:05 AM EDT) Pathologist [facility] [place] Magnesium 2.2 1.5 - 2.5 mg/dL 10/28/2024 1:59 AM EDT [facility] Plasma 10/28/2024 12:0 5 AM EDT 10/28/2024 12:11 AM EDT Kemar Sahni MD LAB BLOOD ORDERABLES Final Result Performing Organization Address City/[facility] de Phone Number [facility] [address] * (ABNORMAL) Renal Function Panel w/EGFR (10/28/2024 12:05 AM EDT) Sodium 144 133 - 146 mmol/L 10/28/2024 1:59 AM EDT [facility] Potassium 3.4(L) 3.5 - 5.3 mmol/L 10/28/2024 1:59 AM EDT [facility] Chloride 112(H) 98 - 110 mmol/L 10/28/2024 1:59 AM EDT [facility] CO2 19(L) 21 - 33 mmol/L 10/28/2024 1:59 AM EDT [facility] Anion Gap 13 3 - 16 mmol/L 10/28/2024 1:59 AM EDT [facility] BUN 59(H) 7 - 25 mg/dL 10/28/2024 1:59 AM EDT [facility] Creatinine 2.42(H) 0.60 - 1.30 mg/dL 10/28/2024 1:59 AM EDT [facility] Glucose 118(H) 70 - 100 mg/dL 10/28/2024 1:59 AM EDT [facility] Calcium 9.0 8.6 - 10.3 mg/dL 10/28/2024 1:59 AM EDT [facility] Phosphorus 5.3(H) 2.1 - 4.7 mg/dL 10/28/2024 1:59 AM EDT [facility] Albumin 3.1(L) 3.5 - 5.7 g/dL 10/28/2024 1:59 AM EDT [facility] Osmolality, Calculated 316(H) 278 - 305 mOsm/kg 10/28/2024 1:59 AM EDT [facility] EGFR 34 10/28/2024 1:59 AM EDT [facility] Comment:As of [...] LAB BLOOD ORDERABLES Final Result [facility] [address] [place] [address], [facility] * (ABNORMAL) Differential (10/28/2024 12:05 AM EDT) Neutrophils Relative 88.6(H) 40.0 - 80.0 % 10/28/2024 12:41 AM EDT [facility] Lymphocytes Relative 2.5(L) 15.0 - 45.0 % 10/28/2024 12:41 AM EDT [facility] Monocytes Relative 6.1 0.0 - 12.0 % 10/28/2024 12:41 AM EDT [facility] Eosinophils Relative 2.4 0.0 - 8.0 % 10/28/2024 12:41 AM EDT [facility] Basophils Relative 0.4 0.0 - 1.0 % 10/28/2024 12:41 AM EDT [facility] nRBC 0 0 - 0 /100 WBC 10/28/2024 12:41 AM EDT [facility] Neutrophils Absolute 4,341 1,520 - 8,640 /uL 10/28/2024 12:41 AM EDT [facility] Lymphocytes Absolute 123(L) 570 - 4,860 /uL 10/28/2024 12:41 AM EDT [facility] Monocytes Absolute 299 0 - 1,296 /uL 10/28/2024 12:41 AM EDT [facility] Eosinophils Absolute 118 0 - 864 /uL 10/28/2024 12:41 AM EDT [facility] Basophils Absolute 20 0 - 108 /uL 10/28/2024 12:41 AM EDT [facility] Whole Blood 10/28/2024 12:0 5 AM EDT 10/28/2024 12:11 AM EDT Kemar Sahni MD LAB BLOOD ORDERABLES Final Result [facility] [address] [facility]. [address] * (ABNORMAL) CBC (10/28/2024 12:05 AM EDT) Pathologist [facility] [place] WBC 4.9 3.8 - 10.8 10E3/uL 10/28/2024 12:41 AM EDT [facility] RBC 2.18(L) 4.20 - 5.80 10E6/uL 10/28/2024 12:41 AM EDT [facility] Hemoglobin 6.7(L) 13.2 - 17.1 g/dL 10/28/2024 12:41 AM EDT [facility] Hematocrit 19.2(L) 38.5 - 50.0 % 10/28/2024 12:41 AM EDT [facility] MCV 87.8 80.0 - 100.0 fL 10/28/2024 12:41 AM EDT [facility] MCH 30.6 27.0 - 33.0 pg 10/28/2024 12:41 AM EDT [facility] MCHC 34.8 32.0 - 36.0 g/dL 10/28/2024 12:41 AM EDT [facility] RDW 19.6(H) 11.0 - 15.0 % 10/28/2024 12:41 AM EDT [facility] Platelets 45(L) 140 - 400 10E3/uL 10/28/2024 12:41 AM EDT [facility] Comment: CNV Specimen checked for clots. None detected. MPV 7.8 7.5 - 11.5 fL 10/28/2024 12:41 AM EDT [facility] Whole Blood 10/28/2024 12:0 5 AM EDT 10/28/2024 12:11 AM EDT Kemar Sahni MD LAB BLOOD ORDERABLES Final Result [facility] [address] [facility]. [address] * (ABNORMAL) POC Glucose Monitoring Device (10/28/2024 12:03 AM EDT) POC Glucose Monitoring Device 122(H) 70 - 100 mg/dL 10/28/2024 12:04 AM EDT [facility] Blood 10/28/2024 12:0 3 AM EDT 10/28/2024 12:04 AM EDT us Semaj Mcnair III, MD POINT OF CARE TEST ORDERABLES Final Result Performing Organization Address City/[facility] Co de Phone Number [facility] [address] [place] [address] * (ABNORMAL) POC Glucose Monitoring Device (10/27/2024 10:03 PM EDT) POC Glucose Monitoring Device 127(H) 70 - 100 mg/dL 10/27/2024 10:03 PM EDT [facility] Blood 10/27/2024 10:0 3 PM EDT 10/27/2024 10:03 PM EDT us Semaj Mcnair III, MD POINT OF CARE TEST ORDERABLES Final Result Performing Organization Address [facility] Co de Phone Number [facility] [address] [place] [address]. [address] * (ABNORMAL) POC Glucose Monitoring Device (10/27/2024 8:06 PM EDT) POC Glucose Monitoring Device 128(H) 70 - 100 mg/dL 10/27/2024 8:45 PM EDT [facility] Blood 10/27/2024 8:06 PM EDT 10/27/2024 8:45 PM EDT us Semaj Mcnair III, MD POINT OF CARE TEST ORDERABLES Final Result Performing Organization Address City/[facility] Co de Phone Number [facility] [address] [place] [address] * (ABNORMAL) POC Glucose Monitoring Device (10/27/2024 6:00 PM EDT) POC Glucose Monitoring Device 128(H) 70 - 100 mg/dL 10/27/2024 6:00 PM EDT [facility] Blood 10/27/2024 6:00 PM EDT 10/27/2024 6:00 PM EDT Semaj Mcnair III, MD POINT OF CARE TEST ORDERABLES Final Result [facility] [address] [facility]. [address] * Lactic Acid, STAT (10/27/2024 5:41 PM EDT) Pathologist [facility] [place] Lactate 0.5 0.5 - 2.2 mmol/L 10/27/2024 6:28 PM EDT [facility] Plasma 10/27/2024 5:41 PM EDT 10/27/2024 5:49 PM EDT Narrative [facility] - 10/27/2024 6:28 PM EDT Redraw John Moreno MD LAB BLOOD ORDERABLES Final R esult Performing Organization Address City/[facility]/ZIP Co de Phone Number [facility] [address] [facility]. [address] * (ABNORMAL) Hepatic Function Panel, STAT (10/27/2024 5:13 PM EDT) Total Bilirubin 1.7(H) 0.0 - 1.5 mg/dL 10/27/2024 5:50 PM EDT [facility] Bilirubin, Direct 1.17(H) 0.00 - 0.40 mg/dL 10/27/2024 5:50 PM EDT [facility] AST 60(H) 13 - 39 U/L 10/27/2024 5:50 PM EDT [facility] ALT 134(H) 7 - 52 U/L 10/27/2024 5:50 PM EDT [facility] Alkaline Phosphatase 27(L) 36 - 125 U/L 10/27/2024 5:50 PM EDT [facility] Total Protein 4.1(L) 6.4 - 8.9 g/dL 10/27/2024 5:50 PM EDT [facility] Albumin 2.9(L) 3.5 - 5.7 g/dL 10/27/2024 5:50 PM EDT [facility] Bilirubin, Indirect 0.53 0.00 - 1.10 mg/dL 10/27/2024 5:50 PM EDT [facility] Plasma 10/27/2024 5:13 PM EDT 10/27/2024 5:23 PM EDT us Shay Plata MD LAB BLOOD ORDERABLES Final Result [facility] [address] [place] [address], [facility] * (ABNORMAL) TEG-Bypass/ECMO/Liver HN (Factor function, Platelet/Fibrin Clot Strength w/Clot Breakdown, Heparinase In All Channels) (10/27/2024 5:13 PM EDT) [facility] Citrated Kaolin Reaction Time (TEGECMOLIVER) 8.0 4.6 - 9.1 minutes 10/27/2024 6:56 PM EDT [facility] Citrated Kaolin W/Heparinase Reaction Time (TEGECMOLIVER) 6.8 4.3 - 8.3 minutes 10/27/2024 6:56 PM EDT [facility] Citrated Kaolin Maximum Amplitude (TEGECMOLIVER) 55.4 52.0 - 69.0 mm 10/27/2024 6:56 PM EDT [facility] Citrated Functional Fibrinogen W/Heparinase Maximum Amplitude(TEGEC MOLIVER) 22.9 15.0 - 34.0 mm 10/27/2024 6:56 PM EDT [facility] Citrated Rapid Teg W/Heparinase Maximum Amplitude (TEGECMOLIVER) 50.8(L) 53.0 - 69.0 mm 10/27/2024 6:56 PM EDT [facility] Citrated Kaolin w/Heparinase Percent Lysis (TEGECMOLIVER) 0.1 0.0 - 3.2 % 10/27/2024 6:56 PM EDT [facility] Whole Blood (Citrate) 10/27/2024 5:13 PM EDT 10/27/2024 5:20 PM EDT Kemar Sahni MD LAB BLOOD ORDERABLES Final Result Performing Organization Address City/[facility] Co de Phone Number [facility] [address] [facility]. [address] * (ABNORMAL) Protime-INR (10/27/2024 5:13 PM EDT) Protime 15.2(H) 12.1 - 15.1 seconds 10/27/2024 5:40 PM EDT [facility] INR 1.1 0.9 - 1.1 10/27/2024 5:40 PM EDT [facility] Comment: RECOMMENDED THERAPEUTIC RANGES USING INR : Stable oral anticoagulant therapy: 2.0 - 3.0 Mechanical prosthetic heart valve: 2.5 - 3.5 Recurrent acute myocardial infarction: 2.5 - 3.5 Plasma 10/27/2024 5:13 PM EDT 10/27/2024 5:23 PM EDT Kemar Sahni MD LAB BLOOD ORDERABLES Final Result Performing Organization Address [facility] Co de Phone Number [facility] [address] [facility] * Magnesium (10/27/2024 5:13 PM EDT) Magnesium 2.4 1.5 - 2.5 mg/dL 10/27/2024 5:53 PM EDT [facility] Plasma 10/27/2024 5:13 PM EDT 10/27/2024 5:23 PM EDT Kemar Sahni MD LAB BLOOD ORDERABLES Final Result Performing Organization Address City/[facility]/ZIP Co de Phone Number [facility] [address] * (ABNORMAL) Hepatic Function Panel (10/27/2024 5:13 PM EDT) Total Bilirubin 1.7(H) 0.0 - 1.5 mg/dL 10/27/2024 5:53 PM EDT [facility] Bilirubin, Direct 1.10(H) 0.00 - 0.40 mg/dL 10/27/2024 5:53 PM EDT [facility] AST 62(H) 13 - 39 U/L 10/27/2024 5:53 PM EDT [facility] ALT 134(H) 7 - 52 U/L 10/27/2024 5:53 PM EDT [facility] Alkaline Phosphatase 27(L) 36 - 125 U/L 10/27/2024 5:53 PM EDT [facility] Total Protein 4.1(L) 6.4 - 8.9 g/dL 10/27/2024 5:53 PM EDT [facility] Albumin 2.9(L) 3.5 - 5.7 g/dL 10/27/2024 5:53 PM EDT [facility] Bilirubin, Indirect 0.60 0.00 - 1.10 mg/dL 10/27/2024 5:53 PM EDT [facility] Plasma 10/27/2024 5:13 PM EDT 10/27/2024 5:23 PM EDT Kemar Sahni MD LAB BLOOD ORDERABLES Final Result Performing Organization Address City/State/[facility] Co de Phone Number [facility] [address] * (ABNORMAL) Renal Function Panel w/EGFR (10/27/2024 5:13 PM EDT) Sodium 142 133 - 146 mmol/L 10/27/2024 5:53 PM EDT [facility] Potassium 3.4(L) 3.5 - 5.3 mmol/L 10/27/2024 5:53 PM EDT [facility] Chloride 109 98 - 110 mmol/L 10/27/2024 5:53 PM EDT [facility] CO2 22 21 - 33 mmol/L 10/27/2024 5:53 PM EDT [facility] Anion Gap 11 3 - 16 mmol/L 10/27/2024 5:53 PM EDT [facility] BUN 61(H) 7 - 25 mg/dL 10/27/2024 5:53 PM EDT [facility] Creatinine 2.42(H) 0.60 - 1.30 mg/dL 10/27/2024 5:53 PM EDT [facility] Glucose 125(H) 70 - 100 mg/dL 10/27/2024 5:53 PM EDT [facility] Calcium 8.8 8.6 - 10.3 mg/dL 10/27/2024 5:53 PM EDT [facility] Phosphorus 5.7(H) 2.1 - 4.7 mg/dL 10/27/2024 5:53 PM EDT [facility] Albumin 2.9(L) 3.5 - 5.7 g/dL 10/27/2024 5:53 PM EDT [facility] Osmolality, Calculated 313(H) 278 - 305 mOsm/kg 10/27/2024 5:53 PM EDT [facility] EGFR 34 10/27/2024 5:53 PM EDT [facility] Comment:As of [...] MD LAB BLOOD ORDERABLES Final Result [facility] [address] * (ABNORMAL) CBC (10/27/2024 5:13 PM EDT) Pathologist [facility] [place] WBC 4.9 3.8 - 10.8 10E3/uL 10/27/2024 6:14 PM EDT [facility] RBC 2.44(L) 4.20 - 5.80 10E6/uL 10/27/2024 6:14 PM EDT [facility] Hemoglobin 7.4(L) 13.2 - 17.1 g/dL 10/27/2024 6:14 PM EDT [facility] Hematocrit 21.4(L) 38.5 - 50.0 % 10/27/2024 6:14 PM EDT [facility] MCV 87.6 80.0 - 100.0 fL 10/27/2024 6:14 PM EDT [facility] MCH 30.3 27.0 - 33.0 pg 10/27/2024 6:14 PM EDT [facility] MCHC 34.6 32.0 - 36.0 g/dL 10/27/2024 6:14 PM EDT [facility] RDW 19.6(H) 11.0 - 15.0 % 10/27/2024 6:14 PM EDT [facility] Platelets 47(L) 140 - 400 10E3/uL 10/27/2024 6:14 PM EDT [facility] Comment: CNV Specimen checked for clots. None detected. MPV 8.1 7.5 - 11.5 fL 10/27/2024 6:14 PM EDT [facility] Whole Blood 10/27/2024 5:13 PM EDT 10/27/2024 5:23 PM EDT us Kemar Sahni MD LAB BLOOD ORDERABLES Final Result [facility] [address] * (ABNORMAL) POC Glucose Monitoring Device (10/27/2024 3:57 PM EDT) Pathologist [facility] POC Glucose Monitoring Device 131(H) 70 - 100 mg/dL 10/27/2024 3:58 PM EDT [facility] Blood 10/27/2024 3:57 PM EDT 10/27/2024 3:58 PM EDT Semaj Mcnair III, MD POINT OF CARE TEST ORDERABLES Final Result [facility] [address] [place] [address], [facility] * (ABNORMAL) CBC, STAT (10/27/2024 2:40 PM EDT) WBC 5.8 3.8 - 10.8 10E3/uL 10/27/2024 2:54 PM EDT [facility] RBC 2.43(L) 4.20 - 5.80 10E6/uL 10/27/2024 2:54 PM EDT [facility] Hemoglobin 7.5(L) 13.2 - 17.1 g/dL 10/27/2024 2:54 PM EDT [facility] Hematocrit 21.5(L) 38.5 - 50.0 % 10/27/2024 2:54 PM EDT [facility] MCV 88.2 80.0 - 100.0 fL 10/27/2024 2:54 PM EDT [facility] MCH 30.7 27.0 - 33.0 pg 10/27/2024 2:54 PM EDT [facility] MCHC 34.8 32.0 - 36.0 g/dL 10/27/2024 2:54 PM EDT [facility] RDW 19.1(H) 11.0 - 15.0 % 10/27/2024 2:54 PM EDT [facility] Platelets 50(L) 140 - 400 10E3/uL 10/27/2024 2:54 PM EDT [facility] MPV 7.5 7.5 - 11.5 fL 10/27/2024 2:54 PM EDT [facility] Whole Blood 10/27/2024 2:40 PM EDT 10/27/2024 2:44 PM EDT us John Moreno MD LAB BLOOD ORDERABLES Final R esult [facility] [address] [place] [id number], [facility] * (ABNORMAL) Blood Gas, Arterial, STAT (10/27/2024 2:40 PM EDT) O2 Sat, Arterial 98 10/27/2024 2:46 PM EDT [facility] FIO2 RA 10/27/2024 2:46 PM EDT [facility] pH, Arterial 7.37 7.35 - 7.45 10/27/2024 2:46 PM EDT [facility] pCO2, Arterial 35 35 - 45 mm Hg 10/27/2024 2:46 PM EDT [facility] pO2, Arterial 92 80 - 100 mm Hg 10/27/2024 2:46 PM EDT [facility] HCO3, Arterial 21(L) 22 - 26 mmol/L 10/27/2024 2:46 PM EDT [facility] CO2 Content,Arteri al 21(L) 23 - 27 mmol/L 10/27/2024 2:46 PM EDT [facility] Base Excess, Arterial -4.6(L) -2.0 - 3.0 mmol/L 10/27/2024 2:46 PM EDT [facility] %HBO2, Arterial 95.4 95.0 - 98.0 % 10/27/2024 2:46 PM EDT [facility] Carboxyhemoglo bin, Arterial 1.6 % 10/27/2024 2:46 PM EDT [facility] Comment: CARBOXYHEMOGLOBIN (CO) REFERENCE RANGES: Non-Smokers: <2 % Smokers: <8 % TOXIC: >20 % Methemoglobin, Arterial 1.0 0.0 - 1.5 % 10/27/2024 2:46 PM EDT [facility] Reduced hemoglobin, Arterial 2.1 0.0 - 5.0 % 10/27/2024 2:46 PM EDT [facility] Blood, Arterial 10/27/2024 2 :40 PM EDT 10/27/2024 2:44 PM EDT Narrative [facility] - 10/27/2024 2:46 PM EDT Post extubation John Moreno MD LAB BLOOD ORDERABLES Final R esult [facility] [address] [facility] * (ABNORMAL) POC Glucose Monitoring Device (10/27/2024 2:06 PM EDT) [facility] POC Glucose Monitoring Device 134(H) 70 - 100 mg/dL 10/27/2024 2:06 PM EDT [facility] Blood 10/27/2024 2:06 PM EDT 10/27/2024 2:06 PM EDT Semaj Mcnair III, MD POINT OF CARE TEST ORDERABLES Final Result Performing Organization Address City/[facility]/ZIP Co de Phone Number [facility] [address] * (ABNORMAL) Blood gas, arterial (10/27/2024 12:35 PM EDT) O2 Sat, Arterial 99 10/27/2024 12:46 PM EDT [facility] FIO2 SBT 30% 10/27/2024 12:46 PM EDT [facility] pH, Arterial 7.35 7.35 - 7.45 10/27/2024 12:46 PM EDT [facility] pCO2, Arterial 37 35 - 45 mm Hg 10/27/2024 12:46 PM EDT [facility] pO2, Arterial 182(H) 80 - 100 mm Hg 10/27/2024 12:46 PM EDT [facility] HCO3, Arterial 21(L) 22 - 26 mmol/L 10/27/2024 12:46 PM EDT [facility] CO2 Content,Arteri al 22(L) 23 - 27 mmol/L 10/27/2024 12:46 PM EDT [facility] Base Excess, Arterial -4.8(L) -2.0 - 3.0 mmol/L 10/27/2024 12:46 PM EDT [facility] %HBO2, Arterial 96.3 95.0 - 98.0 % 10/27/2024 12:46 PM EDT [facility] Carboxyhemoglo bin, Arterial 1.7 % 10/27/2024 12:46 PM EDT [facility] Comment: CARBOXYHEMOGLOBIN (CO) REFERENCE RANGES: Non-Smokers: <2 % Smokers: <8 % TOXIC: >20 % Methemoglobin, Arterial 1.4 0.0 - 1.5 % 10/27/2024 12:46 PM EDT [facility] Reduced hemoglobin, Arterial 0.6 0.0 - 5.0 % 10/27/2024 12:46 PM EDT [facility] Blood, Arterial 10/27/2024 1 2:35 PM EDT 10/27/2024 12:42 PM EDT Narrative [facility] - 10/27/2024 12:46 PM EDT Please obtain post SBT us Shay Sifuentes MD LAB BLOOD ORDERABLES Final Resu lt [facility] [address] * (ABNORMAL) TEG-Bypass/ECMO/Liver HN (Factor function, Platelet/Fibrin Clot Strength w/Clot Breakdown, Heparinase In All Channels) (10/27/2024 12:07 PM EDT) [facility] Citrated Kaolin Reaction Time (TEGECMOLIVER) 7.9 4.6 - 9.1 minutes 10/27/2024 1:24 PM EDT [facility] Citrated Kaolin W/Heparinase Reaction Time (TEGECMOLIVER) 8.3 4.3 - 8.3 minutes 10/27/2024 1:24 PM EDT [facility] Citrated Kaolin Maximum Amplitude (TEGECMOLIVER) 52.0 52.0 - 69.0 mm 10/27/2024 1:24 PM EDT [facility] Citrated Functional Fibrinogen W/Heparinase Maximum Amplitude(TEGEC MOLIVER) 20.1 15.0 - 34.0 mm 10/27/2024 1:24 PM EDT [facility] Citrated Rapid Teg W/Heparinase Maximum Amplitude (TEGECMOLIVER) 49.4(L) 53.0 - 69.0 mm 10/27/2024 1:24 PM EDT [facility] Citrated Kaolin w/Heparinase Percent Lysis (TEGECMOLIVER) 0.0 0.0 - 3.2 % 10/27/2024 1:24 PM EDT [facility] Whole Blood (Citrate) 10/27/2024 12:07 PM EDT 10/27/2024 12:09 PM EDT Kemar Sahni MD LAB BLOOD ORDERABLES Final Result Performing Organization Address City/[facility]/ZIP Co de Phone Number [facility] [address] [place] [address]. [address] * (ABNORMAL) POC Glucose Monitoring Device (10/27/2024 12:01 PM EDT) POC Glucose Monitoring Device 121(H) 70 - 100 mg/dL 10/27/2024 12:02 PM EDT [facility] Blood 10/27/2024 12:0 1 PM EDT 10/27/2024 12:01 PM EDT Semaj Mcnair III, MD POINT OF CARE TEST ORDERABLES Final Result Performing Organization Address [facility] Co de Phone Number [facility] [address] [place] [address]. [address] * (ABNORMAL) POC Glucose Monitoring Device (10/27/2024 10:59 AM EDT) POC Glucose Monitoring Device 126(H) 70 - 100 mg/dL 10/27/2024 11:10 AM EDT [facility] Blood 10/27/2024 10:5 9 AM EDT 10/27/2024 11:10 AM EDT Semaj Mcnair III, MD POINT OF CARE TEST ORDERABLES Final Result Performing Organization Address City/[facility] Co de Phone Number [facility] [address] [place] [address]. [address] * ECG 12 lead (MUSE) (10/27/2024 10:17 AM EDT) 10/27/2024 10:1 7 AM EDT Narrative MUSE - 10/27/2024 2:51 PM EDT Ventricular Rate: 91 BPM Atrial Rate: 91 BPM P-R Interval: 168 ms QRS Duration: 90 ms QT: 274 ms QTc: 337 ms P [place]: 60 degrees R [place]: -30 degrees T [place]: -15 degrees Diagnosis Line: NORMAL SINUS RHYTHM ^ LEFT AXIS DEVIATION, LEFT ANTERIOR HEMIBLOCK ^ NONSPECIFIC T WAVE CHANGE ^ ABNORMAL ECG ^ ^ Confirmed by MD ROLLY, [facility] ([id number]) on 10/27/2024 2:51:52 PM Shay Sifuentes MD ECG ORDERABLES Final Result MUSE * (ABNORMAL) POC Glucose Monitoring Device (10/27/2024 10:00 AM EDT) [facility] POC Glucose Monitoring Device 121(H) 70 - 100 mg/dL 10/27/2024 10:01 AM EDT [facility]ALTH [facility] Blood 10/27/2024 10:0 0 AM EDT 10/27/2024 10:01 AM EDT Semaj Mcnair III, MD POINT OF CARE TEST ORDERABLES Final Result Performing Organization Address [facility] Co de Phone Number [facility] [address] * US Renal Transplant (10/27/2024 9:51 [...] 10:28 AM EDT us Sveta Judge MD [facility] US ORDERABLES Final Result * US Duplex [id number] Comp (10/27/2024 9:51 AM EDT) Anatomical Region [...] EXAM: US ABDOMEN LIMITED EXAM: US DUPLEX [id number] COMPLETE INDICATION: Post-op liver transplant COMPARISON: None [...] absent.. Pancreas: Obscured by overlying bowel gas. [place] right kidney: 12.5 cm in length. Normal [...] EXAM: US ABDOMEN LIMITED EXAM: US DUPLEX [id number] COMPLETE INDICATION: Post-op liver transplant COMPARISON: None [...] absent.. Pancreas: Obscured by overlying bowel gas. [place] right kidney: 12.5 cm in length. Normal [...] EXAM: US ABDOMEN LIMITED EXAM: US DUPLEX [id number] COMPLETE INDICATION: Post-op liver transplant COMPARISON: None [...] absent.. Pancreas: Obscured by overlying bowel gas. [place] right kidney: 12.5 cm in length. Normal [...] EXAM: US ABDOMEN LIMITED EXAM: US DUPLEX [id number] COMPLETE INDICATION: Post-op liver transplant COMPARISON: None [...] absent.. Pancreas: Obscured by overlying bowel gas. [place] right kidney: 12.5 cm in length. Normal [...] 100 mg/dL 10/27/2024 9:06 AM EDT [facility] Blood 10/27/2024 9:05 AM EDT 10/27/2024 9:06 AM EDT us Semaj Mcnair III, MD POINT OF CARE TEST ORDERABLES Final Result [facility] [address] * X-ray Portable Chest (10/27/2024 8:58 [...] 15.1 seconds 10/27/2024 8:35 AM EDT [facility] INR 1.2(H) 0.9 - 1.1 10/27/2024 8:35 AM EDT [facility] Comment: RECOMMENDED THERAPEUTIC RANGES USING INR : Stable oral anticoagulant therapy: 2.0 - 3.0 Mechanical prosthetic heart valve: 2.5 - 3.5 Recurrent acute myocardial infarction: 2.5 - 3.5 Plasma 10/27/2024 8:16 AM EDT 10/27/2024 8:20 AM EDT John Moreno MD LAB BLOOD ORDERABLES Final R esult [facility] [address] * Magnesium (10/27/2024 8:00 AM EDT) Magnesium 1.8 1.5 - 2.5 mg/dL 10/27/2024 10:50 AM EDT [facility] Plasma 10/27/2024 8:00 AM EDT 10/27/2024 10:31 AM EDT Kemar Sahni MD LAB BLOOD ORDERABLES Final Result Performing Organization Address [facility] Co de Phone Number [facility] [address] * (ABNORMAL) Renal Function Panel w/EGFR (10/27/2024 8:00 AM EDT) Sodium 142 133 - 146 mmol/L 10/27/2024 10:18 AM EDT [facility] Potassium 3.0(L) 3.5 - 5.3 mmol/L 10/27/2024 10:18 AM EDT [facility] Chloride 109 98 - 110 mmol/L 10/27/2024 10:18 AM EDT [facility] CO2 21 21 - 33 mmol/L 10/27/2024 10:18 AM EDT [facility] Anion Gap 12 3 - 16 mmol/L 10/27/2024 10:18 AM EDT [facility] BUN 59(H) 7 - 25 mg/dL 10/27/2024 10:18 AM EDT [facility] Creatinine 2.54(H) 0.60 - 1.30 mg/dL 10/27/2024 10:18 AM EDT [facility] Glucose 111(H) 70 - 100 mg/dL 10/27/2024 10:18 AM EDT [facility] Calcium 9.1 8.6 - 10.3 mg/dL 10/27/2024 10:18 AM EDT [facility] Phosphorus 5.5(H) 2.1 - 4.7 mg/dL 10/27/2024 10:18 AM EDT [facility] Albumin 3.0(L) 3.5 - 5.7 g/dL 10/27/2024 10:18 AM EDT [facility] Osmolality, Calculated 311(H) 278 - 305 mOsm/kg 10/27/2024 10:18 AM EDT [facility] EGFR 32 10/27/2024 10:18 AM EDT [facility] Comment:As of [...] MD LAB BLOOD ORDERABLES Final Result [facility] [address] [place] [address], [facility] * (ABNORMAL) Hepatic Function Panel, STAT (10/27/2024 8:00 AM EDT) Total Bilirubin 1.3 0.0 - 1.5 mg/dL 10/27/2024 8:51 AM EDT [facility] Bilirubin, Direct 0.93(H) 0.00 - 0.40 mg/dL 10/27/2024 8:51 AM EDT [facility] AST 88(H) 13 - 39 U/L 10/27/2024 8:51 AM EDT [facility] ALT 149(H) 7 - 52 U/L 10/27/2024 8:51 AM EDT [facility] Alkaline Phosphatase 26(L) 36 - 125 U/L 10/27/2024 8:51 AM EDT [facility] Total Protein 4.0(L) 6.4 - 8.9 g/dL 10/27/2024 8:51 AM EDT [facility] Albumin 3.0(L) 3.5 - 5.7 g/dL 10/27/2024 8:51 AM EDT [facility] Bilirubin, Indirect 0.37 0.00 - 1.10 mg/dL 10/27/2024 8:51 AM EDT [facility] Plasma 10/27/2024 8:00 AM EDT 10/27/2024 8:20 AM EDT us Semaj Mcnair III, MD LAB BLOOD ORDERABLE S Final Result Performing Organization Address [facility] Co de Phone Number [facility] [address] * (ABNORMAL) Lactic Acid, STAT (10/27/2024 8:00 AM EDT) Lactate 0.4(L) 0.5 - 2.2 mmol/L 10/27/2024 8:43 AM EDT [facility] Plasma 10/27/2024 8:00 AM EDT 10/27/2024 8:20 AM EDT us Semaj Mcnair III, MD LAB BLOOD ORDERABLE S Final Result Performing Organization Address City/[facility]/ZIP Co de Phone Number [facility] [address] * (ABNORMAL) Blood Gas, Arterial, STAT (10/27/2024 8:00 AM EDT) O2 Sat, Arterial 100 10/27/2024 8:23 AM EDT [facility] pH, Arterial 7.36 7.35 - 7.45 10/27/2024 8:23 AM EDT [facility] pCO2, Arterial 37 35 - 45 mm Hg 10/27/2024 8:23 AM EDT [facility] pO2, Arterial 245(H) 80 - 100 mm Hg 10/27/2024 8:23 AM EDT [facility] HCO3, Arterial 22 22 - 26 mmol/L 10/27/2024 8:23 AM EDT [facility] CO2 Content,Arteri al 22(L) 23 - 27 mmol/L 10/27/2024 8:23 AM EDT [facility] Base Excess, Arterial -4.2(L) -2.0 - 3.0 mmol/L 10/27/2024 8:23 AM EDT [facility] %HBO2, Arterial 96.5 95.0 - 98.0 % 10/27/2024 8:23 AM EDT [facility] Carboxyhemoglo bin, Arterial 2.2 % 10/27/2024 8:23 AM EDT [facility] Comment: CARBOXYHEMOGLOBIN (CO) REFERENCE RANGES: Non-Smokers: <2 % Smokers: <8 % TOXIC: >20 % Methemoglobin, Arterial 1.2 0.0 - 1.5 % 10/27/2024 8:23 AM EDT [facility] Reduced hemoglobin, Arterial 0.0 0.0 - 5.0 % 10/27/2024 8:23 AM EDT [facility] Blood, Arterial 10/27/2024 8 :00 AM EDT 10/27/2024 8:19 AM EDT Narrative [facility] - 10/27/2024 8:23 AM EDT Specimen is beyond 15 minutes from time of collection. Results may be compromised. Review results critically. us Kemar Sahni MD LAB BLOOD ORDERABLES Final Result [facility] [address] * (ABNORMAL) TEG-Bypass/ECMO/Liver HN (Factor function, Platelet/Fibrin Clot Strength w/Clot Breakdown, Heparinase In All Channels) (10/27/2024 8:00 AM EDT) Citrated Kaolin Reaction Time (TEGECMOLIVER) 7.8 4.6 - 9.1 minutes 10/27/2024 9:39 AM EDT [facility] Citrated Kaolin W/Heparinase Reaction Time (TEGECMOLIVER) 8.0 4.3 - 8.3 minutes 10/27/2024 9:39 AM EDT [facility] Citrated Kaolin Maximum Amplitude (TEGECMOLIVER) 52.7 52.0 - 69.0 mm 10/27/2024 9:39 AM EDT [facility] Citrated Functional Fibrinogen W/Heparinase Maximum Amplitude(TEGEC MOLIVER) 19.0 15.0 - 34.0 mm 10/27/2024 9:39 AM EDT [facility] Citrated Rapid Teg W/Heparinase Maximum Amplitude (TEGECMOLIVER) 49.5(L) 53.0 - 69.0 mm 10/27/2024 9:39 AM EDT [facility] Citrated Kaolin w/Heparinase Percent Lysis (TEGECMOLIVER) 0.0 0.0 - 3.2 % 10/27/2024 9:39 AM EDT [facility] Whole Blood (Citrate) 10/27/2024 8:00 AM EDT 10/27/2024 8:19 AM EDT us Kemar Sahni MD LAB BLOOD ORDERABLES Final Result [facility] [address] [facility] * (ABNORMAL) Katie-Watkins virus VCA IgG Antibody (10/27/2024 8:00 AM EDT) EBV VCA IgG Positive( A) Negative 10/27/2024 11:30 AM EDT [facility] Comment:Presence of detectab le VCA IgG antibodies. 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 EBV IGG NUM 314.00(H) 0.00 - 17.99 U/mL 10/27/2024 11:30 AM EDT [facility] Serum 10/27/2024 8:00 AM EDT 10/27/2024 8:20 AM EDT Kemar Sahni MD LAB BLOOD ORDERABLES Final Result Performing Organization Address [facility] Co de Phone Number [facility] [address] [facility] * Hemoglobin A1c (10/27/2024 8:00 AM EDT) Hemoglobin A1C 5.0 4.0 - 5.6 % 10/27/2024 11:12 AM EDT [facility] Comment: Hemoglobin A1c Interpretation [...] BLOOD ORDERABLES Final Result Performing Organization Address City/[facility] Co de Phone Number [facility] [address] [facility] * (ABNORMAL) POC Glucose Monitoring Device (10/27/2024 7:59 AM EDT) POC Glucose Monitoring Device 113(H) 70 - 100 mg/dL 10/27/2024 7:59 AM EDT [facility] Blood 10/27/2024 7:59 AM EDT 10/27/2024 7:59 AM EDT us Semaj Mcnair III, MD POINT OF CARE TEST ORDERABLES Final Result [facility] [address] [place] [address], [facility] * X-ray Abdomen AP view (10/27/2024 7:47 [...] Units (10/27/2024 6:16 AM EDT) Product Code U2996Y96 HCLL Unit Number [id number] HCLL Dispense Status Presumed Transfused_PT HCLL Blood Expiration Date [id number] HCLL Coding System IHAK846 HCLL Product Code R8640D94 HCLL Unit Number [id number] HCLL Dispense Status Presumed Transfused_PT HCLL Blood Expiration Date [id number] HCLL Coding System [id number] HCLL Blood Bank Product us John Pina MD BLOOD BANK PRODUCT ORDERABLES F inal Result Performing Organization Address City/[facility] Co de Phone Number HCLL * Prepare Platelets, leukoreduced, 1 Units (10/27/2024 6:16 AM EDT) Product Code Q0857A29 HCLL Unit Number [id number] HCLL Dispense Status Presumed Transfused_PT HCLL Blood Expiration Date 850707288793 HCLL Coding System [id number] HCLL Blood Bank Product us Eber Quinones MD BLOOD BANK PRODUCT ORDER PAL Final Result HCLL * Prepare Cryoprecipitate, 1 Units (10/27/2024 6:16 AM EDT) Product Code Q8280T95 HCLL Unit Number [id number] HCLL Dispense Status Presumed Transfused_PT HCLL Blood Expiration Date 595323875270 HCLL Coding System XJJT408 HCLL Product Code P6268O30 HCLL Unit Number [id number] HCLL Dispense Status Presumed Transfused_PT HCLL Blood Expiration Date HCLL Coding System [id number] HCLL Blood Bank Product Eber Quinones MD BLOOD BANK PRODUCT ORDER PAL Final Result HC[facility] * Prepare Fresh Frozen Plasma, 10 Units (10/27/2024 6:16 AM EDT) Product Code B1650R51 HCLL Unit Number [id number] HCLL Dispense Status Presumed Transfused_PT HCLL Blood Expiration Date HCLL Coding System CLNX091 HCLL Product Code I8320O52 HCLL Unit Number [id number] HCLL Dispense Status Presumed Transfused_PT HCLL Blood Expiration Date HCLL Coding System EAHM073 HCLL Product Code R5762E31 HCLL Unit Number [id number] HCLL Dispense Status Presumed Transfused_PT HCLL Blood Expiration Date 829281060168 HCLL Coding System GSFZ922 HCLL Product Code T9031J54 HCLL Unit Number [id number] HCLL Dispense Status Presumed Transfused_PT HCLL Blood Expiration Date 581811450747 HCLL Coding System NNVL893 HCLL Product Code F0512D13 HCLL Unit Number [id number] HCLL Dispense Status Released from Crossmatch_RE HCLL Blood Expiration Date 634244084661 HCLL Coding System GXAL841 HCLL Product Code Z4601K95 HCLL Unit Number [id number] HCLL Dispense Status Released from Crossmatch_RE HCLL Blood Expiration Date HCLL Coding System YAJU609 HCLL Product Code I4734O13 HCLL Unit Number [id number] HCLL Dispense Status Presumed Transfused_PT HCLL Blood Expiration Date HCLL Coding System PUGX540 HCLL Product Code T1237U09 HCLL Unit Number [id number] HCLL Dispense Status Presumed Transfused_PT HCLL Blood Expiration Date HCLL Coding System KGGV848 HCLL Product Code R6697Y19 HCLL Unit Number [id number] HCLL Dispense Status Presumed Transfused_PT HCLL Blood Expiration Date HCLL Coding System HYLA802 HCLL Product Code E2362Z62 HCLL Unit Number [id number] HCLL Dispense Status Presumed Transfused_PT HCLL Blood Expiration Date HCLL Coding System WWWX426 HCLL Blood Bank Product us Leandra Og MD BLOOD BANK PRODUCT ORD ERABLES Final Result Performing Organization Address City/[facility]/ZIP Co de Phone Number HCLL * Prepare Platelets, leukoreduced, 1 Units (10/27/2024 6:16 AM EDT) Product Code U7355D72 HCLL Unit Number [id number] HCLL Dispense Status Presumed Transfused_PT HCLL Blood Expiration Date 841103811075 HCLL Coding System AJQH095 HCLL Blood Bank Product Ben Blake MD BLOOD BANK PRODUCT ORDERABLES Final Result HCLL * Prepare Fresh Frozen Plasma (10/27/2024 6:15 AM EDT) Product Code R6235C82 HCLL Unit Number [id number] HCLL Dispense Status Presumed Transfused_PT HCLL Blood Expiration Date 803836232161 HCLL Coding System BNCJ000 HCLL Product Code K5601I19 HCLL Unit Number [id number] HCLL Dispense Status Released from Crossmatch_RE HCLL Blood Expiration Date HCLL Coding System UZXI182 HCLL Product Code D0578C92 HCLL Unit Number [id number] HCLL Dispense Status Presumed Transfused_PT HCLL Blood Expiration Date HCLL Coding System RWLT989 HCLL Product Code Z6382A51 HCLL Unit Number [id number] HCLL Dispense Status Presumed Transfused_PT HCLL Blood Expiration Date HCLL Coding System UGNK044 HCLL Product Code B9572H69 HCLL Unit Number [id number] HCLL Dispense Status Released from Crossmatch_RE HCLL Blood Expiration Date HCLL Coding System GFQO475 HCLL us Attending Provider Unknown BLOOD BANK PRODUCT OR DERABLES Final Result HCLL * Prepare RBC, leukoreduced (10/27/2024 6:15 AM EDT) Product Code W2472U22 HCLL Unit Number [id number] HCLL Dispense Status Presumed Transfused_PT HCLL Blood Expiration Date HCLL Coding System RUUR671 HCLL Product Code E8909P66 HCLL Unit Number [id number] HCLL Dispense Status Released from Crossmatch_RE HCLL Blood Expiration Date HCLL Coding System UZQP240 HCLL Product Code K8499S09 HCLL Unit Number [id number] HCLL Dispense Status Released from Crossmatch_RE HCLL Blood Expiration Date 709877865915 HCLL Coding System DUCV723 HCLL Product Code P3594W28 HCLL Unit Number [id number] HCLL Dispense Status Released from Crossmatch_RE HCLL Blood Expiration Date 773458784026 HCLL Coding System GSNJ198 HCLL Product Code H8221G98 HCLL Unit Number [id number] HCLL Dispense Status Released from Crossmatch_RE HCLL Blood Expiration Date HCLL Coding System MJAL102 HCLL us Attending Provider Unknown BLOOD BANK PRODUCT OR DERABLES Final Result HCLL * Prepare RBC, leukoreduced, 10 Units (10/27/2024 6:15 AM EDT) Product Code G0195Q50 HCLL Unit Number [id number] HCLL Dispense Status Presumed Transfused_PT HCLL Blood Expiration Date HCLL Coding System JXDD985 HCLL Product Code V5073G73 HCLL Unit Number [id number] HCLL Dispense Status Presumed Transfused_PT HCLL Blood Expiration Date HCLL Coding System TLZY801 HCLL Product Code T8060D53 HCLL Unit Number [id number] HCLL Dispense Status Presumed Transfused_PT HCLL Blood Expiration Date HCLL Coding System UPDB378 HCLL Product Code C9304X75 HCLL Unit Number [id number] HCLL Dispense Status Presumed Transfused_PT HCLL Blood Expiration Date HCLL Coding System BUUH752 HCLL Product Code V3609F97 HCLL Unit Number [id number] HCLL Dispense Status Presumed Transfused_PT HCLL Blood Expiration Date HCLL Coding System ZTNI680 HCLL Product Code L5235N13 HCLL Unit Number [id number] HCLL Dispense Status Presumed Transfused_PT HCLL Blood Expiration Date HCLL Coding System BMBF336 HCLL Product Code I8818G18 HCLL Unit Number [id number] HCLL Dispense Status Presumed Transfused_PT HCLL Blood Expiration Date HCLL Coding System MFVX648 HCLL Product Code I7984L21 HCLL Unit Number [id number] HCLL Dispense Status Presumed Transfused_PT HCLL Blood Expiration Date HCLL Coding System TTAT562 HCLL Product Code I8653V65 HCLL Unit Number [id number] HCLL Dispense Status Presumed Transfused_PT HCLL Blood Expiration Date HCLL Coding System YGGL151 HCLL Product Code I0781J19 HCLL Unit Number [id number] HCLL Dispense Status Presumed Transfused_PT HCLL Blood Expiration Date HCLL Coding System UCKT068 HCLL Blood Bank Product us Leandra Og MD BLOOD BANK PRODUCT ORD ERABLES Final Result HCLL * Transfuse Platelets (10/27/2024 6:09 AM EDT) us Ben Blake MD NURSING TREATMENT ORDERABLES - BLOOD ADMIN Final Result * (ABNORMAL) Arterial Blood Gas Panel (10/27/2024 6:09 AM EDT) O2Sat (ABGP) 100 10/27/2024 6:17 AM EDT [facility] pH (ABGP) 7.30(L) 7.35 - 7.45 10/27/2024 6:17 AM EDT [facility] PCO2 (ABGP) 41 35 - 45 mm Hg 10/27/2024 6:17 AM EDT [facility] PO2 (ABGP) 192(H) 80 - 100 mm Hg 10/27/2024 6:17 AM EDT [facility] HCO3 (ABGP) 21(L) 22 - 26 mmol/L 10/27/2024 6:17 AM EDT [facility] CO2 Content (ABGP) 22(L) 23 - 27 mmol/L 10/27/2024 6:17 AM EDT [facility] Base Excess (ABGP) -5.7(L) -2.0 - 3.0 mmol/L 10/27/2024 6:17 AM EDT [facility] Sodium (ABGP) 138 136 - 146 mEq/L 10/27/2024 6:17 AM EDT [facility] Potassium (ABGP) 3.3(L) 3.5 - 5.0 mEq/L 10/27/2024 6:17 AM EDT [facility] Comment:In the event of in-v itro hemolysis, potassium results may be falsely elevated. Always interpret lab results in conjunction with clinical findings. If hemolysis is suspected, a serum sample may be collected for repeat assessment of potassium. Calcium, Free (ABGP) 5.28 4.50 - 5.30 mg/dL 10/27/2024 6:17 AM EDT [facility] Glucose (ABGP) 112(H) 70 - 100 mg/dL 10/27/2024 6:17 AM EDT [facility] Comment:There is interferenc e with whole blood glucose results on this method when Hematocrit is <25% or >60%. HCT (ABGP) 20.0(L) 40.0 - 52.0 % 10/27/2024 6:17 AM EDT [facility] HGB (ABGP) 6.5(L) 14.0 - 18.0 g/dL 10/27/2024 6:17 AM EDT [facility] %HBO2 (ABGP) 96.8 95.0 - 98.0 % 10/27/2024 6:17 AM EDT [facility] Carboxyhgb (ABGP) 2.1 % 025 6:17 AM EDT [facility] Comment: CARBOXYHEMOGLOBIN (CO) REFERENCE RANGES: Non-Smokers: <2 % Smokers: <8 % TOXIC: >20 % Methemoglobin (ABGP) 1.0 0.0 - 1.5 % 10/27/2024 6:17 AM EDT [facility] Reduced Hemoglobin (ABGP) 0.2 0.0 - 5.0 % 10/27/2024 6:17 AM EDT [facility] Lactic Acid (ABGP) 0.4(L) 0.5 - 1.6 mmol/L 10/27/2024 6:17 AM EDT [facility] Blood, Arterial 10/27/2024 6 :09 AM EDT 10/27/2024 6:14 AM EDT us Ben Blake MD LAB BLOOD ORDERABLES Final Re sult [facility] [address] * Transfuse Fresh Frozen Plasma (10/27/2024 5:49 AM EDT) Result [facility] Ben Blake MD NURSING TREATMENT ORDERABLES - BLOOD ADMIN Final Result * Transfuse Cryoprecipitate (10/27/2024 4:56 AM EDT) Ben Blake MD NURSING TREATMENT ORDERABLES - BLOOD ADMIN Final Result * Transfuse Cryoprecipitate (10/27/2024 4:49 AM EDT) Result [facility] Ben Blake MD NURSING TREATMENT ORDERABLES - BLOOD ADMIN Final Result * (ABNORMAL) POC Glucose Monitoring Device (10/27/2024 4:46 AM EDT) [facility] POC Glucose Monitoring Device 124(H) 70 - 100 mg/dL 10/27/2024 4:47 AM EDT [facility] Blood 10/27/2024 4:46 AM EDT 10/27/2024 4:47 AM EDT Result [facility] Semaj Mcnair III, MD POINT OF CARE TEST ORDERABLES Final Result [facility] [address] [facility] * Transfuse Platelets (10/27/2024 4:24 AM EDT) Result [facility] Ben Blake MD NURSING TREATMENT ORDERABLES - BLOOD ADMIN Final Result * Transfuse Fresh Frozen Plasma (10/27/2024 4:07 AM EDT) Result [facility] Ben Blake MD NURSING TREATMENT ORDERABLES - BLOOD ADMIN Final Result * Transfuse RBC (10/27/2024 3:52 AM EDT) Result [facility] Ben Blake MD NURSING TREATMENT ORDERABLES - BLOOD ADMIN Final Result * (ABNORMAL) Arterial Blood Gas Panel (10/27/2024 3:07 AM EDT) O2Sat (ABGP) 100 10/27/2024 3:21 AM EDT [facility] pH (ABGP) 7.32(L) 7.35 - 7.45 10/27/2024 3:21 AM EDT [facility] PCO2 (ABGP) 38 35 - 45 mm Hg 10/27/2024 3:21 AM EDT [facility] PO2 (ABGP) 176(H) 80 - 100 mm Hg 10/27/2024 3:21 AM EDT [facility] HCO3 (ABGP) 20(L) 22 - 26 mmol/L 10/27/2024 3:21 AM EDT [facility] CO2 Content (ABGP) 21(L) 23 - 27 mmol/L 10/27/2024 3:21 AM T [facility] Base Excess (ABGP) -6.0(L) -2.0 - 3.0 mmol/L 10/27/2024 3:21 AM [facility] Sodium (ABGP) 138 136 - 146 mEq/L 10/27/2024 3:21 AM [facility] Potassium (ABGP) 3.0(L) 3.5 - 5.0 mEq/L 10/27/2024 3:21 AM [facility] Comment:In the event of in-v itro hemolysis, potassium results may be falsely elevated. Always interpret lab results in conjunction with clinical findings. If hemolysis is suspected, a serum sample may be collected for repeat assessment of potassium. Calcium, Free (ABGP) 5.28 4.50 - 5.30 mg/dL 10/27/2024 3:21 AM [facility] Glucose (ABGP) 108(H) 70 - 100 mg/dL 10/27/2024 3:21 AM [facility] Comment:There is interferenc e with whole blood glucose results on this method when Hematocrit is <25% or >60%. HCT (ABGP) 22.0(L) 40.0 - 52.0 % 10/27/2024 3:21 AM T [facility] HGB (ABGP) 7.3(L) 14.0 - 18.0 g/dL 10/27/2024 3:21 AM [facility] %HBO2 (ABGP) 97.3 95.0 - 98.0 % 10/27/2024 3:21 AM T [facility] Carboxyhgb (ABGP) 1.9 % 025 3:21 AM EDT [facility] Comment: CARBOXYHEMOGLOBIN (CO) REFERENCE RANGES: Non-Smokers: <2 % Smokers: <8 % TOXIC: >20 % Methemoglobin (ABGP) 0.8 0.0 - 1.5 % 10/27/2024 3:21 AM EDT [facility] Reduced Hemoglobin (ABGP) 0.0 0.0 - 5.0 % 10/27/2024 3:21 AM EDT [facility] Lactic Acid (ABGP) 0.3(L) 0.5 - 1.6 mmol/L 10/27/2024 3:21 AM EDT [facility] Blood, Arterial 10/27/2024 3 :07 AM EDT 10/27/2024 3:14 AM EDT us Ben Blake MD LAB BLOOD ORDERABLES Final Re sult Performing Organization Address City/State/[facility] Co de Phone Number [facility] [address] * Surgical Pathology Exam (10/27/2024 2:38 AM EDT) Tissue LEFT KIDNEY STRUCTURE / Unknown 10/27/2024 2:38 AM EDT Narrative [facility] - 10/27/2024 12:00 AM EDT CASE: [id number] PATIENT: BLAIR GILBERT Clinical History: Transplant kidney with bile duct reconstruction Pre-Operative Diagnosis: Acute kidney injury superimposed on CKD Post-Operative Diagnosis: None Given Specimen(s) Submitted: A. baseline renal biopsy ; B. right lobe liver biopsy; C. left lobe liver biopsy CPT Code(s): 36329 X 1; 90355 X 2; 99504 X 4 Additional Information: FINAL DIAGNOSIS: A. [...] submitted between blue biopsy sponges in cassette [id number]. (NAA Mckeon/ns) C. Received in formalin, labeled with the patient's name Blair Gilbert and left lobe liver biopsy are two green-georges tissue cores measuring 1.2 and 1.4 cm in length, each with a diameter of 0.1 cm, which are entirely submitted between blue biopsy sponges in cassette [id number]-C2. (NAA Mckeon/ns) Microscopic Description: I, the attending pathologist, have personally reviewed all prosector/resident work and pathology slides to determine final diagnosis. Control Materials Reacted Appropriately. Final Diagnosis performed by CLARE FALL MD Pathologist Electronically signed 10/31/2024 01:07:09 PM The Pathologist signing this report is located at [facility], [address] [place] [address], [facility], , CLIA ID: [id number] ADDENDUM: A. Kidney, allograft, baseline, wedge biopsy: [...] Pathologist signing this report is located at [facility], [address] [place] [address], [place], [place], [facility], , CLIA ID: [id number] Kemar Sahni MD PATHOLOGY/CYTOLOGY ORDERABL ES Edited Result - Final Performing Organization Address [facility] Co de Phone Number [facility] * Anaerobic culture (10/27/2024 2:15 AM EDT) Culture Result No Anaerobes Isolated in 5 Days [facility] Fluid SPECIMEN FROM KIDNEY / Unknown 10/27/2024 2:15 AM EDT 10/27/2024 4:24 AM EDT Narrative [facility] - 10/31/2024 11:43 AM EDT 1) perfusate Semaj Mcnair III, MD MICROBIOLOGY - GENE RAL ORDERABLES Final Result Performing Organization Address [facility] Co de Phone Number [address] * Routine Culture plus Stain (10/27/2024 2:15 AM EDT) Gram Stain Result No Polymorphonuclear Leukocytes Seen [facility] Gram Stain Result No Organisms Seen; [facility] Culture Result No Growth After 3 Days [facility] Fluid SPECIMEN FROM KIDNEY / Unknown 10/27/2024 2:15 AM EDT 10/27/2024 4:24 AM EDT Narrative [facility] - 10/30/2024 9:26 AM EDT 1) perfusate Semaj Mcnair III, MD MICROBIOLOGY - GENE RAL ORDERABLES Final Result Performing Organization Address [facility]/State/ZIP Co de Phone Number [facility] [address] [place] [address], [facility] * Transfuse Platelets Transfusion Rate: Per dept [...] a Baseline TEG) (10/27/2024 1:51 AM EDT) [facility] Kaolin Reaction Time (TEGHEPARINASE) 10.6(H) 4.6 - 9.1 minutes 10/27/2024 2:44 AM EDT [facility] Rapid Teg Maximum Amplitude (TEGHEPARINASE) 42.3(L) 52.0 - 70.0 mm 10/27/2024 2:44 AM EDT [facility] Functional Fibrinogen Maximum Amplitude (TEGHEPARINASE) 15.0 15.0 - 32.0 mm 10/27/2024 2:44 AM EDT [facility] Kaolin W/Heparinase Reaction Time (TEGHEPARINASE) 10.5(H) 4.3 - 8.3 minutes 10/27/2024 2:44 AM EDT [facility] Ka[employer] K-Time (TEGHEPARINASE) 2.9(A) 0.8 - 2.1 minutes 10/27/2024 2:44 AM EDT [facility] [place] Angle (TEGHEPARINASE) 60.4(A) 63.0 - 78.0 degrees 10/27/2024 2:44 AM EDT [facility] Kaolin Maximum Amplitude (TEGHEPARINASE) 42.9(L) 52.0 - 69.0 mm 10/27/2024 2:44 AM EDT [facility] Functional Fibrinogen- Fibrinogen Level (TEGHEPARINASE) 273.7(L) 278.0 - 581.0 mg/dL 10/27/2024 2:44 AM EDT [facility] Whole Blood (Citrate) 10/27/2024 1:51 AM EDT 10/27/2024 2:03 AM EDT John Pina MD LAB BLOOD ORDERABLES Final Resu lt Performing Organization Address [facility] Co de Phone Number [facility] [address] * (ABNORMAL) POC Glucose Monitoring Device (10/27/2024 1:50 AM EDT) POC Glucose Monitoring Device 121(H) 70 - 100 mg/dL 10/27/2024 1:51 AM EDT [facility] Blood 10/27/2024 1:50 AM EDT 10/27/2024 1:51 AM EDT Semaj Mcnair III, MD POINT OF CARE TEST ORDERABLES Final Result Performing Organization Address [facility] Co de Phone Number [facility] [address] * Transfuse Cryoprecipitate Transfusion Rate: Per dept routine (10/27/2024 1:25 AM EDT) John Pina MD NURSING TREATMENT ORDERABLES - BLOOD ADMIN Final Result Performing Organization Address [facility] Co de Phone Number EXTERNAL * Transfuse Cryoprecipitate Transfusion Rate: Per dept routine, 1 Units (10/27/2024 1:25 AM EDT) John Pina MD NURSING TREATMENT ORDERABLES - BLOOD ADMIN Final Result Performing Organization Address [facility] Co de Phone Number EXTERNAL * (ABNORMAL) POC Glucose Monitoring Device (10/27/2024 1:21 AM EDT) POC Glucose Monitoring Device 123(H) 70 - 100 mg/dL 10/27/2024 1:22 AM EDT [facility] Blood 10/27/2024 1:21 AM EDT 10/27/2024 1:21 AM EDT us Semaj Mcnair III, MD POINT OF CARE TEST ORDERABLES Final Result Performing Organization Address [facility] Co de Phone Number [facility] [address] [place] [address], [facility] * Transfuse Fresh Frozen Plasma Transfusion Rate: Per dept routine (10/27/2024 1:03 AM EDT) us John Pina MD NURSING TREATMENT ORDERABLES - BLOOD ADMIN Final Result Performing Organization Address [facility] de Phone Number EXTERNAL * Transfuse Fresh Frozen Plasma Transfusion Rate: Per dept routine, 1 Units (10/27/2024 1:03 AM EDT) us John Pina MD NURSING TREATMENT ORDERABLES - BLOOD ADMIN Final Result Performing Organization Address [facility] de Phone Number EXTERNAL * Calcium Free, Serum (10/27/2024 12:13 AM EDT) Free Calcium, Ser 5.20 4.40 - 5.40 mg/dL 10/27/2024 12:37 AM EDT [facility] Comment:Free calcium levels vary inversely with pH by approximately 5% for each 0.1 unit of pH change. Assay results have been normalized to pH = 7.40. Serum 10/27/2024 12:1 3 AM EDT 10/27/2024 12:29 AM EDT Narrative [facility] - 10/27/2024 12:37 AM EDT This test has been developed and its performance characteristics determined by [facility] which is certified under [...] ORDERABLES Final Resu lt Performing Organization Address [facility]/State/ZIP Co de Phone Number [facility] [address] [place] [address], [facility] * (ABNORMAL) Blood Gas, Arterial, STAT (10/27/2024 12:13 AM EDT) O2 Sat, Arterial 100 10/27/2024 12:23 AM EDT [facility] FIO2 30 10/27/2024 12:23 AM EDT [facility] pH, Arterial 7.32(L) 7.35 - 7.45 10/27/2024 12:23 AM EDT [facility] pCO2, Arterial 37 35 - 45 mm Hg 10/27/2024 12:23 AM EDT [facility] pO2, Arterial 137(H) 80 - 100 mm Hg 10/27/2024 12:23 AM EDT [facility] HCO3, Arterial 20(L) 22 - 26 mmol/L 10/27/2024 12:23 AM EDT [facility] CO2 Content,Arteri al 20(L) 23 - 27 mmol/L 10/27/2024 12:23 AM EDT [facility] Base Excess, Arterial -6.4(L) -2.0 - 3.0 mmol/L 10/27/2024 12:23 AM EDT [facility] %HBO2, Arterial 96.2 95.0 - 98.0 % 10/27/2024 12:23 AM EDT [facility] Carboxyhemoglo bin, Arterial 1.9 % 10/27/2024 12:23 AM EDT [facility] Comment: CARBOXYHEMOGLOBIN (CO) REFERENCE RANGES: Non-Smokers: <2 % Smokers: <8 % TOXIC: >20 % Methemoglobin, Arterial 1.5 0.0 - 1.5 % 10/27/2024 12:23 AM EDT [facility] Reduced hemoglobin, Arterial 0.4 0.0 - 5.0 % 10/27/2024 12:23 AM EDT [facility] Blood, Arterial 10/27/2024 1 2:13 AM EDT 10/27/2024 12:18 AM EDT us John Pina MD LAB BLOOD ORDERABLES Final Resu lt [facility] [address] * (ABNORMAL) TEG-Bypass/ECMO/Liver HN (Factor function, Platelet/Fibrin Clot Strength w/Clot Breakdown, Heparinase In All Channels) (10/27/2024 12:13 AM EDT) Citrated Kaolin Reaction Time (TEGECMOLIVER) 9.1 4.6 - 9.1 minutes 10/27/2024 1:43 AM EDT [facility] Citrated Kaolin W/Heparinase Reaction Time (TEGECMOLIVER) 9.7(H) 4.3 - 8.3 minutes 10/27/2024 1:43 AM EDT [facility] Citrated Kaolin Maximum Amplitude (TEGECMOLIVER) <40.0(L) 52.0 - 69.0 mm 10/27/2024 1:43 AM EDT [facility] Citrated Functional Fibrinogen W/Heparinase Maximum Amplitude(TEGEC MOLIVER) 11.9(L) 15.0 - 34.0 mm 10/27/2024 1:43 AM EDT [facility] Citrated Rapid Teg W/Heparinase Maximum Amplitude (TEGECMOLIVER) 31.6(L) 53.0 - 69.0 mm 10/27/2024 1:43 AM EDT [facility] Citrated Kaolin w/Heparinase Percent Lysis (TEGECMOLIVER) 0.0 0.0 - 3.2 % 10/27/2024 1:43 AM EDT [facility] Whole Blood (Citrate) 10/27/2024 12:13 AM EDT 10/27/2024 12:18 AM EDT us Kemar Sahni MD LAB BLOOD ORDERABLES Final Result [facility] [address] * (ABNORMAL) Lactic Acid (10/27/2024 12:13 AM EDT) Lactate 0.2(L) 0.5 - 2.2 mmol/L 10/27/2024 12:59 AM EDT [facility] Plasma 10/27/2024 12:1 3 AM EDT 10/27/2024 12:31 AM EDT Kemar Sahni MD LAB BLOOD ORDERABLES Final Result Performing Organization Address [facility] Co de Phone Number [facility] [address] * Magnesium (10/27/2024 12:13 AM EDT) Magnesium 1.8 1.5 - 2.5 mg/dL 10/27/2024 12:52 AM EDT [facility] Plasma 10/27/2024 12:1 3 AM EDT 10/27/2024 12:29 AM EDT Kemar Sahni MD LAB BLOOD ORDERABLES Final Result Performing Organization Address [facility] de Phone Number [facility] [address] * (ABNORMAL) Hepatic Function Panel (10/27/2024 12:13 AM EDT) Total Bilirubin 1.6(H) 0.0 - 1.5 mg/dL 10/27/2024 12:52 AM EDT [facility] Bilirubin, Direct 1.17(H) 0.00 - 0.40 mg/dL 10/27/2024 12:52 AM EDT [facility] AST 157(H) 13 - 39 U/L 10/27/2024 12:52 AM EDT [facility] ALT 261(H) 7 - 52 U/L 10/27/2024 12:52 AM EDT [facility] Alkaline Phosphatase 26(L) 36 - 125 U/L 10/27/2024 12:52 AM EDT [facility] Total Protein 3.8(L) 6.4 - 8.9 g/dL 10/27/2024 12:52 AM EDT [facility] Albumin 2.8(L) 3.5 - 5.7 g/dL 10/27/2024 12:52 AM EDT [facility] Bilirubin, Indirect 0.43 0.00 - 1.10 mg/dL 10/27/2024 12:52 AM EDT [facility] Plasma 10/27/2024 12:1 3 AM EDT 10/27/2024 12:29 AM EDT Kemar Sahni MD LAB BLOOD ORDERABLES Final Result Performing Organization Address [facility] de Phone Number [facility] [address] [facility] [address] * (ABNORMAL) Protime-INR (10/27/2024 12:13 AM EDT) Protime 18.6(H) 12.1 - 15.1 seconds 10/27/2024 12:43 AM EDT [facility] INR 1.5(H) 0.9 - 1.1 10/27/2024 12:43 AM EDT [facility] Comment: RECOMMENDED THERAPEUTIC RANGES USING INR : Stable oral anticoagulant therapy: 2.0 - 3.0 Mechanical prosthetic heart valve: 2.5 - 3.5 Recurrent acute myocardial infarction: 2.5 - 3.5 Plasma 10/27/2024 12:1 3 AM EDT 10/27/2024 12:29 AM EDT Kemar Sahni MD LAB BLOOD ORDERABLES Final Result Performing Organization Address [facility] Co de Phone Number [facility] [address] [facility] * (ABNORMAL) CBC (10/27/2024 12:13 AM EDT) WBC 5.0 3.8 - 10.8 10E3/uL 10/27/2024 12:59 AM EDT [facility] RBC 2.70(L) 4.20 - 5.80 10E6/uL 10/27/2024 12:59 AM EDT [facility] Hemoglobin 8.5(L) 13.2 - 17.1 g/dL 10/27/2024 12:59 AM EDT [facility] Hematocrit 23.9(L) 38.5 - 50.0 % 10/27/2024 12:59 AM EDT [facility] MCV 88.5 80.0 - 100.0 fL 10/27/2024 12:59 AM EDT [facility] MCH 31.5 27.0 - 33.0 pg 10/27/2024 12:59 AM EDT [facility] MCHC 35.6 32.0 - 36.0 g/dL 10/27/2024 12:59 AM EDT [facility] RDW 20.6(H) 11.0 - 15.0 % 10/27/2024 12:59 AM EDT [facility] Platelets 35(L) 140 - 400 10E3/uL 10/27/2024 12:59 AM EDT [facility] Comment: CNV Specimen checked for clots. None detected. MPV 7.6 7.5 - 11.5 fL 10/27/2024 12:59 AM EDT [facility] Whole Blood 10/27/2024 12:1 3 AM EDT 10/27/2024 12:29 AM EDT us Kemar Sahni MD LAB BLOOD ORDERABLES Final Result [facility] [address] [place] [address], [facility] * (ABNORMAL) Renal Function Panel w/EGFR (10/27/2024 12:13 AM EDT) Sodium 141 133 - 146 mmol/L 10/27/2024 12:52 AM EDT [facility] Potassium 3.2(L) 3.5 - 5.3 mmol/L 10/27/2024 12:52 AM EDT [facility] Chloride 109 98 - 110 mmol/L 10/27/2024 12:52 AM EDT [facility] CO2 21 21 - 33 mmol/L 10/27/2024 12:52 AM EDT [facility] Anion Gap 11 3 - 16 mmol/L 10/27/2024 12:52 AM EDT [facility] BUN 64(H) 7 - 25 mg/dL 10/27/2024 12:52 AM EDT [facility] Creatinine 2.58(H) 0.60 - 1.30 mg/dL 10/27/2024 12:52 AM EDT [facility] Glucose 126(H) 70 - 100 mg/dL 10/27/2024 12:52 AM EDT [facility] Calcium 8.9 8.6 - 10.3 mg/dL 10/27/2024 12:52 AM EDT [facility] Phosphorus 5.3(H) 2.1 - 4.7 mg/dL 10/27/2024 12:52 AM EDT [facility] Albumin 2.8(L) 3.5 - 5.7 g/dL 10/27/2024 12:52 AM EDT [facility] Osmolality, Calculated 312(H) 278 - 305 mOsm/kg 10/27/2024 12:52 AM EDT [facility] EGFR 31 10/27/2024 12:52 AM EDT [facility] Comment:As of [...] MD LAB BLOOD ORDERABLES Final Result [facility] [address] [place] [id number], [facility] * (ABNORMAL) POC Glucose Monitoring Device (10/27/2024 12:08 AM EDT) [facility] POC Glucose Monitoring Device 121(H) 70 - 100 mg/dL 10/27/2024 12:08 AM EDT [facility] Blood 10/27/2024 12:0 8 AM EDT 10/27/2024 12:08 AM EDT Semaj Mcnair III, MD POINT OF CARE TEST ORDERABLES Final Result Performing Organization Address [facility] Co de Phone Number [facility] [address] [place] [address] * (ABNORMAL) POC Glucose Monitoring Device (10/26/2024 11:15 PM EDT) [facility] POC Glucose Monitoring Device 120(H) 70 - 100 mg/dL 10/26/2024 11:15 PM EDT [facility] Blood 10/26/2024 11:1 5 PM EDT 10/26/2024 11:15 PM EDT Semaj Mcnair III, MD POINT OF CARE TEST ORDERABLES Final Result Performing Organization Address [facility] Co de Phone Number [address] * (ABNORMAL) TEG-Bypass/ECMO/Liver HN (Factor function, Platelet/Fibrin Clot Strength w/Clot Breakdown, Heparinase In All Channels) (10/26/2024 10:36 PM EDT) Citrated Kaolin Reaction Time (TEGECMOLIVER) 10.0(H) 4.6 - 9.1 minutes 10/26/2024 11:53 PM EDT [facility] Citrated Kaolin W/Heparinase Reaction Time (TEGECMOLIVER) 10.2(H) 4.3 - 8.3 minutes 10/26/2024 11:53 PM EDT [facility] Citrated Kaolin Maximum Amplitude (TEGECMOLIVER) <40.0(L) 52.0 - 69.0 mm 10/26/2024 11:53 PM EDT [facility] Citrated Functional Fibrinogen W/Heparinase Maximum Amplitude(TEGEC MOLIVER) 11.3(L) 15.0 - 34.0 mm 10/26/2024 11:53 PM EDT [facility] Citrated Rapid Teg W/Heparinase Maximum Amplitude (TEGECMOLIVER) 41.8(L) 53.0 - 69.0 mm 10/26/2024 11:53 PM EDT [facility] Citrated Kaolin w/Heparinase Percent Lysis (TEGECMOLIVER) 0.0 0.0 - 3.2 % 10/26/2024 11:53 PM EDT [facility] Whole Blood (Citrate) 10/26/2024 10:36 PM EDT 10/26/2024 10:43 PM EDT Kemar Sahni MD LAB BLOOD ORDERABLES Final Result Performing Organization Address [facility] Co de Phone Number [facility] [address] [facility] * (ABNORMAL) POC Glucose Monitoring Device (10/26/2024 10:14 PM EDT) POC Glucose Monitoring Device 124(H) 70 - 100 mg/dL 10/26/2024 11:11 PM EDT [facility] Blood 10/26/2024 10:1 4 PM EDT 10/26/2024 11:11 PM EDT Semaj Mcnair III, MD POINT OF CARE TEST ORDERABLES Final Result [facility] [address] [facility] * (ABNORMAL) POC Glucose Monitoring Device (10/26/2024 9:16 PM EDT) POC Glucose Monitoring Device 119(H) 70 - 100 mg/dL 10/26/2024 9:18 PM EDT [facility] Blood 10/26/2024 9:16 PM EDT 10/26/2024 9:18 PM EDT us Semaj Mcnair III, MD POINT OF CARE TEST ORDERABLES Final Result Performing Organization Address [facility]/ZIP Co de Phone Number [facility] [address] * (ABNORMAL) POC Glucose Monitoring Device (10/26/2024 8:05 PM EDT) POC Glucose Monitoring Device 113(H) 70 - 100 mg/dL 10/26/2024 8:06 PM EDT [facility] Blood 10/26/2024 8:05 PM EDT 10/26/2024 8:06 PM EDT us Semaj Mcnair III, MD POINT OF CARE TEST ORDERABLES Final Result Performing Organization Address [facility] Co de Phone Number [facility] [address] [facility] * (ABNORMAL) POC Glucose Monitoring Device (10/26/2024 7:02 PM EDT) POC Glucose Monitoring Device 111(H) 70 - 100 mg/dL 10/26/2024 7:03 PM EDT [facility] Blood 10/26/2024 7:02 PM EDT 10/26/2024 7:03 PM EDT us Semaj Mcnair III, MD POINT OF CARE TEST ORDERABLES Final Result Performing Organization Address [facility]/ZIP Co de Phone Number [facility] [address] * Transfuse Cryoprecipitate Transfusion Rate: Per dept routine (10/26/2024 6:39 PM EDT) us John Pina MD NURSING TREATMENT ORDERABLES - BLOOD ADMIN Final Result EXTERNAL * Transfuse Cryoprecipitate Transfusion Rate: Per dept routine, 1 Units (10/26/2024 6:39 PM EDT) us John Pina MD NURSING TREATMENT ORDERABLES - BLOOD ADMIN Final Result Performing Organization Address [facility] Co de Phone Number EXTERNAL * (ABNORMAL) POC Glucose Monitoring Device (10/26/2024 6:33 PM EDT) POC Glucose Monitoring Device 110(H) 70 - 100 mg/dL 10/26/2024 6:34 PM EDT [facility] Blood 10/26/2024 6:33 PM EDT 10/26/2024 6:34 PM EDT us Semaj Mcnair III, MD POINT OF CARE TEST ORDERABLES Final Result Performing Organization Address [facility] Co de Phone Number [facility] [address] [facility] * Transfuse Cryoprecipitate Transfusion Rate: Per dept routine (10/26/2024 6:22 PM EDT) John Pina MD NURSING TREATMENT ORDERABLES - BLOOD ADMIN Final Result Performing Organization Address [facility] de Phone Number EXTERNAL * Transfuse Cryoprecipitate Transfusion Rate: Per dept routine, 1 Units (10/26/2024 6:22 PM EDT) us John Pina MD NURSING TREATMENT ORDERABLES - BLOOD ADMIN Final Result Performing Organization Address [facility] de Phone Number EXTERNAL * (ABNORMAL) POC Glucose Monitoring Device (10/26/2024 6:17 PM EDT) POC Glucose Monitoring Device 104(H) 70 - 100 mg/dL 10/26/2024 6:18 PM EDT [facility] Blood 10/26/2024 6:17 PM EDT 10/26/2024 6:18 PM EDT us Semaj Mcnair III, MD POINT OF CARE TEST ORDERABLES Final Result Performing Organization Address [facility] Co de Phone Number [facility] [address] * (ABNORMAL) POC Glucose Monitoring Device (10/26/2024 4:58 PM EDT) [facility] POC Glucose Monitoring Device 115(H) 70 - 100 mg/dL 10/26/2024 4:59 PM EDT [facility] Blood 10/26/2024 4:58 PM EDT 10/26/2024 4:58 PM EDT Semaj Mcnair III, MD POINT OF CARE TEST ORDERABLES Final Result Performing Organization Address [facility] de Phone Number [facility] [address] [place] [address] * (ABNORMAL) Calcium Free, Serum (10/26/2024 4:42 PM EDT) [facility] Free Calcium, Ser 5.67(H) 4.40 - 5.40 mg/dL 10/26/2024 4:55 PM EDT [facility] Comment:Free calcium levels vary inversely with pH by approximately 5% for each 0.1 unit of pH change. Assay results have been normalized to pH = 7.40. Serum 10/26/2024 4:42 PM EDT 10/26/2024 4:47 PM EDT Narrative [facility] - 10/26/2024 4:55 PM EDT This test has been developed and its performance characteristics determined by [facility] which is certified under [...] ORDERABLES Final Resu lt Performing Organization Address [facility] Co de Phone Number [facility] [address] [facility] * Repeat Crossmatch (Recipient Sample) (10/26/2024 4:42 PM EDT) Pathologist [facility] Repeat Cx - Recipient The request and specimen(s) for this test have been received and transported to the [facility] at [address] [place] [address]. The [facility] will report results directly to the client. 10/26/2024 4:49 PM EDT [facility] Whole Blood 10/26/2024 4:42 PM EDT 10/26/2024 4:49 PM EDT Narrative [facility] - 10/26/2024 4:49 PM EDT To be sent to [facility] for Donor [id number] cross match with Blair Gilbert Sveta Judge MD LAB BLOOD ORDERABLES Final Resu lt [facility] [address] * (ABNORMAL) Lactic Acid (10/26/2024 4:42 PM EDT) Lactate 0.3(L) 0.5 - 2.2 mmol/L 10/26/2024 5:19 PM EDT [facility] Plasma 10/26/2024 4:42 PM EDT 10/26/2024 4:47 PM EDT Kemar Sahni MD LAB BLOOD ORDERABLES Final Result Performing Organization Address City/[facility]/ZIP Co de Phone Number [facility] [address] [facility] * Magnesium (10/26/2024 4:42 PM EDT) Magnesium 2.0 1.5 - 2.5 mg/dL 10/26/2024 5:24 PM EDT [facility] Plasma 10/26/2024 4:42 PM EDT 10/26/2024 4:47 PM EDT Kemar Sahni MD LAB BLOOD ORDERABLES Final Result [facility] [address] * (ABNORMAL) Hepatic Function Panel (10/26/2024 4:42 PM EDT) Total Bilirubin 2.3(H) 0.0 - 1.5 mg/dL 10/26/2024 5:24 PM EDT [facility] Bilirubin, Direct 1.85(H) 0.00 - 0.40 mg/dL 10/26/2024 5:24 PM EDT [facility] AST 374(H) 13 - 39 U/L 10/26/2024 5:24 PM EDT [facility] ALT 458(H) 7 - 52 U/L 10/26/2024 5:24 PM EDT [facility] Alkaline Phosphatase 39 36 - 125 U/L 10/26/2024 5:24 PM EDT [facility] Total Protein 3.8(L) 6.4 - 8.9 g/dL 10/26/2024 5:24 PM EDT [facility] Albumin 3.0(L) 3.5 - 5.7 g/dL 10/26/2024 5:24 PM EDT [facility] Bilirubin, Indirect 0.45 0.00 - 1.10 mg/dL 10/26/2024 5:24 PM EDT [facility] Plasma 10/26/2024 4:42 PM EDT 10/26/2024 4:47 PM EDT Kemar Sahni MD LAB BLOOD ORDERABLES Final Result [facility] [address] * (ABNORMAL) Protime-INR (10/26/2024 4:42 PM EDT) Protime 20.3(H) 12.1 - 15.1 seconds 10/26/2024 5:12 PM EDT [facility] INR 1.7(H) 0.9 - 1.1 10/26/2024 5:12 PM EDT [facility] Comment: RECOMMENDED THERAPEUTIC RANGES USING INR : Stable oral anticoagulant therapy: 2.0 - 3.0 Mechanical prosthetic heart valve: 2.5 - 3.5 Recurrent acute myocardial infarction: 2.5 - 3.5 Plasma 10/26/2024 4:42 PM EDT 10/26/2024 4:47 PM EDT Kemra Sahni MD LAB BLOOD ORDERABLES Final Result [facility] [address] [place] [address], [facility] * (ABNORMAL) CBC (10/26/2024 4:42 PM EDT) WBC 10.0 3.8 - 10.8 10E3/uL 10/26/2024 5:00 PM EDT [facility] RBC 3.44(L) 4.20 - 5.80 10E6/uL 10/26/2024 5:00 PM EDT [facility] Hemoglobin 10.5(L) 13.2 - 17.1 g/dL 10/26/2024 5:00 PM EDT [facility] Hematocrit 30.2(L) 38.5 - 50.0 % 10/26/2024 5:00 PM EDT [facility] MCV 87.7 80.0 - 100.0 fL 10/26/2024 5:00 PM EDT [facility] MCH 30.6 27.0 - 33.0 pg 10/26/2024 5:00 PM EDT [facility] MCHC 34.8 32.0 - 36.0 g/dL 10/26/2024 5:00 PM EDT [facility] RDW 20.1(H) 11.0 - 15.0 % 10/26/2024 5:00 PM EDT [facility] Platelets 48(L) 140 - 400 10E3/uL 10/26/2024 5:00 PM EDT [facility] Comment:Specimen checked for clots. None detected. MPV 7.9 7.5 - 11.5 fL 10/26/2024 5:00 PM EDT [facility] Whole Blood 10/26/2024 4:42 PM EDT 10/26/2024 4:47 PM EDT us Kemar Sahni MD LAB BLOOD ORDERABLES Final Result [facility] [id number] [place] [address], [facility] * (ABNORMAL) Renal Function Panel w/EGFR (10/26/2024 4:42 PM EDT) Sodium 142 133 - 146 mmol/L 10/26/2024 5:24 PM EDT [facility] Potassium 3.3(L) 3.5 - 5.3 mmol/L 10/26/2024 5:24 PM EDT [facility] Chloride 109 98 - 110 mmol/L 10/26/2024 5:24 PM EDT [facility] CO2 23 21 - 33 mmol/L 10/26/2024 5:24 PM EDT [facility] Anion Gap 10 3 - 16 mmol/L 10/26/2024 5:24 PM EDT [facility] BUN 63(H) 7 - 25 mg/dL 10/26/2024 5:24 PM EDT [facility] Creatinine 2.85(H) 0.60 - 1.30 mg/dL 10/26/2024 5:24 PM EDT [facility] Glucose 127(H) 70 - 100 mg/dL 10/26/2024 5:24 PM EDT [facility] Calcium 8.9 8.6 - 10.3 mg/dL 10/26/2024 5:24 PM EDT [facility] Phosphorus 4.4 2.1 - 4.7 mg/dL 10/26/2024 5:24 PM EDT [facility] Albumin 3.0(L) 3.5 - 5.7 g/dL 10/26/2024 5:24 PM EDT [facility] Osmolality, Calculated 314(H) 278 - 305 mOsm/kg 10/26/2024 5:24 PM EDT [facility] EGFR 28 10/26/2024 5:24 PM EDT [facility] Comment:As of [...] BLOOD ORDERABLES Final Result Performing Organization Address [facility] Co de Phone Number [facility] [address] * (ABNORMAL) POC Glucose Monitoring Device (10/26/2024 3:54 PM EDT) POC Glucose Monitoring Device 126(H) 70 - 100 mg/dL 10/26/2024 3:55 PM EDT [facility] Blood 10/26/2024 3:54 PM EDT 10/26/2024 3:55 PM EDT Semaj Mcnair III, MD POINT OF CARE TEST ORDERABLES Final Result [facility] [address] [facility]. [address] * (ABNORMAL) POC Glucose Monitoring Device (10/26/2024 3:06 PM EDT) POC Glucose Monitoring Device 144(H) 70 - 100 mg/dL 10/26/2024 3:14 PM EDT [facility] Blood 10/26/2024 3:06 PM EDT 10/26/2024 3:13 PM EDT Semaj Mcnair III, MD POINT OF CARE TEST ORDERABLES Final Result [facility] [address] * (ABNORMAL) TEG-Bypass/ECMO/Liver HN (Factor function, Platelet/Fibrin Clot Strength w/Clot Breakdown, Heparinase In All Channels) (10/26/2024 3:03 PM EDT) [facility] Citrated Kaolin Reaction Time (TEGECMOLIVER) 8.2 4.6 - 9.1 minutes 10/26/2024 4:43 PM EDT [facility] Citrated Kaolin W/Heparinase Reaction Time (TEGECMOLIVER) 8.2 4.3 - 8.3 minutes 10/26/2024 4:43 PM EDT [facility] Citrated Kaolin Maximum Amplitude (TEGECMOLIVER) 41.7(L) 52.0 - 69.0 mm 10/26/2024 4:43 PM EDT [facility] Citrated Functional Fibrinogen W/Heparinase Maximum Amplitude(TEGEC MOLIVER) 11.4(L) 15.0 - 34.0 mm 10/26/2024 4:43 PM EDT [facility] Citrated Rapid Teg W/Heparinase Maximum Amplitude (TEGECMOLIVER) 38.6(L) 53.0 - 69.0 mm 10/26/2024 4:43 PM EDT [facility] Citrated Kaolin w/Heparinase Percent Lysis (TEGECMOLIVER) 0.0 0.0 - 3.2 % 10/26/2024 4:43 PM EDT [facility] Whole Blood (Citrate) 10/26/2024 3:03 PM EDT 10/26/2024 3:10 PM EDT us Jani Mooney MD LAB BLOOD ORDERABLES Final Resul t [facility] [address] [place] [address], [facility] * ECG 12 lead (MUSE) (10/26/2024 2:19 PM EDT) 10/26/2024 2:19 PM EDT Narrative MUSE - 10/27/2024 10:09 AM EDT Ventricular Rate: 105 BPM Atrial Rate: 105 BPM P-R Interval: 128 ms QRS Duration: 94 ms QT: 474 ms QTc: 626 ms R Winsted: -37 degrees T Winsted: 35 degrees Diagnosis Line: Critical Test Result: Long QTc ^ SINUS TACHYCARDIA ^ LEFT AXIS DEVIATION, LEFT ANTERIOR HEMIBLOCK ^ PROLONGED QT ^ ABNORMAL ECG ^ ^ Confirmed by MD HA, ERICK ([facility]) on 10/27/2024 10:09:25 AM Quinten Best MD ECG ORDERABLES Final Result Performing Organization Address [facility] Co de Phone Number MUSE * (ABNORMAL) POC Glucose Monitoring Device (10/26/2024 2:00 PM EDT) POC Glucose Monitoring Device 183(H) 70 - 100 mg/dL 10/26/2024 2:01 PM EDT [facility] Blood 10/26/2024 2:00 PM EDT 10/26/2024 2:01 PM EDT Semaj Mcnair III, MD POINT OF CARE TEST ORDERABLES Final Result Performing Organization Address [facility] Phone Number [facility] [address] * (ABNORMAL) POC Glucose Monitoring Device (10/26/2024 1:05 PM EDT) POC Glucose Monitoring Device 212(H) 70 - 100 mg/dL 10/26/2024 1:06 PM EDT [facility] Blood 10/26/2024 1:05 PM EDT 10/26/2024 1:06 PM EDT Semaj Mcnair III, MD POINT OF CARE TEST ORDERABLES Final Result Performing Organization Address [facility] Co de Phone Number [facility] [address] * Transfuse Cryoprecipitate Has consent been obtained? Yes; Transfusion Rate: Per dept routine (10/26/2024 12:25 PM EDT) Shay Sifuentes MD NURSING TREATMENT ORDERABLES - BLOOD ADMIN Final Result Performing Organization Address [facility] de Phone Number EXTERNAL * Transfuse Cryoprecipitate Has consent been obtained? Yes; Transfusion Rate: Per dept routine, 1 Units (10/26/2024 12:25 PM EDT) Shay Sifuentes MD NURSING TREATMENT ORDERABLES - BLOOD ADMIN Final Result Performing Organization Address [facility] de Phone Number EXTERNAL * (ABNORMAL) POC Glucose Monitoring Device (10/26/2024 12:06 PM EDT) POC Glucose Monitoring Device 226(H) 70 - 100 mg/dL 10/26/2024 12:07 PM EDT [facility] Blood 10/26/2024 12:0 6 PM EDT 10/26/2024 12:07 PM EDT Result [facility] Semaj Mcnair III, MD POINT OF CARE TEST ORDERABLES Final Result Performing Organization Address [facility] de Phone Number [facility] [address] * Transfuse Cryoprecipitate Transfusion Rate: Per dept routine (10/26/2024 12:01 PM EDT) John Pina MD NURSING TREATMENT ORDERABLES - BLOOD ADMIN Final Result Performing Organization Address [facility] de Phone Number EXTERNAL * Transfuse Cryoprecipitate Transfusion Rate: Per dept routine, 1 Units (10/26/2024 12:01 PM EDT) John Pina MD NURSING TREATMENT ORDERABLES - BLOOD ADMIN Final Result Performing Organization Address [facility] de Phone Number EXTERNAL * Lactic Acid (10/26/2024 10:48 AM EDT) Lactate 1.2 0.5 - 2.2 mmol/L 10/26/2024 11:27 AM EDT [facility] Plasma 10/26/2024 10:4 8 AM EDT 10/26/2024 10:53 AM EDT Kemar Sahni MD LAB BLOOD ORDERABLES Final Result [facility] [address] * Magnesium (10/26/2024 10:48 AM EDT) Magnesium 2.0 1.5 - 2.5 mg/dL 10/26/2024 11:26 AM EDT [facility] Plasma 10/26/2024 10:4 8 AM EDT 10/26/2024 10:53 AM EDT Kemar Sahni MD LAB BLOOD ORDERABLES Final Result Performing Organization Address [facility] de Phone Number [facility] [address] * (ABNORMAL) Hepatic Function Panel (10/26/2024 10:48 AM EDT) Total Bilirubin 5.9(H) 0.0 - 1.5 mg/dL 10/26/2024 11:26 AM EDT [facility] Bilirubin, Direct 4.74(H) 0.00 - 0.40 mg/dL 10/26/2024 11:26 AM EDT [facility] AST 872(H) 13 - 39 U/L 10/26/2024 11:26 AM EDT [facility] ALT 736(H) 7 - 52 U/L 10/26/2024 11:26 AM EDT [facility] Alkaline Phosphatase 56 36 - 125 U/L 10/26/2024 11:26 AM EDT [facility] Total Protein 3.5(L) 6.4 - 8.9 g/dL 10/26/2024 11:26 AM EDT [facility] Albumin 2.5(L) 3.5 - 5.7 g/dL 10/26/2024 11:26 AM EDT [facility] Bilirubin, Indirect 1.16(H) 0.00 - 1.10 mg/dL 10/26/2024 11:26 AM EDT [facility] Plasma 10/26/2024 10:4 8 AM EDT 10/26/2024 10:53 AM EDT Kemar Sahni MD LAB BLOOD ORDERABLES Final Result Performing Organization Address [facility] de Phone Number [facility] [address] [place] [address]. [address] * (ABNORMAL) Protime-INR (10/26/2024 10:48 AM EDT) Protime 23.0(H) 12.1 - 15.1 seconds 10/26/2024 11:26 AM EDT [facility] INR 2.0(H) 0.9 - 1.1 10/26/2024 11:26 AM EDT [facility] Comment: RECOMMENDED THERAPEUTIC RANGES USING INR : Stable oral anticoagulant therapy: 2.0 - 3.0 Mechanical prosthetic heart valve: 2.5 - 3.5 Recurrent acute myocardial infarction: 2.5 - 3.5 Plasma 10/26/2024 10:4 8 AM EDT 10/26/2024 10:53 AM EDT Result [facility] Kemar Sahni MD LAB BLOOD ORDERABLES Final Result Performing Organization Address [facility] de Phone Number [facility] [address] [facility]. [address] * (ABNORMAL) CBC (10/26/2024 10:48 AM EDT) WBC 17.3(H) 3.8 - 10.8 10E3/uL 10/26/2024 11:14 AM EDT [facility] RBC 4.22 4.20 - 5.80 10E6/uL 10/26/2024 11:14 AM EDT [facility] Hemoglobin 12.8(L) 13.2 - 17.1 g/dL 10/26/2024 11:14 AM EDT [facility] Hematocrit 37.2(L) 38.5 - 50.0 % 10/26/2024 11:14 AM EDT [facility] MCV 88.3 80.0 - 100.0 fL 10/26/2024 11:14 AM EDT [facility] MCH 30.4 27.0 - 33.0 pg 10/26/2024 11:14 AM EDT [facility] MCHC 34.4 32.0 - 36.0 g/dL 10/26/2024 11:14 AM EDT [facility] RDW 20.8(H) 11.0 - 15.0 % 10/26/2024 11:14 AM EDT [facility] Platelets 109(L) 140 - 400 10E3/uL 10/26/2024 11:14 AM EDT [facility] MPV 7.5 7.5 - 11.5 fL 10/26/2024 11:14 AM EDT [facility] Whole Blood 10/26/2024 10:4 8 AM EDT 10/26/2024 10:53 AM EDT Kemar Sahni MD LAB BLOOD ORDERABLES Final Result [facility] [address] [place] [address], [facility] * (ABNORMAL) Blood gas, arterial (10/26/2024 10:48 AM EDT) O2 Sat, Arterial 97 10/26/2024 10:54 AM EDT [facility] FIO2 35% 10/26/2024 10:54 AM EDT [facility] pH, Arterial 7.37 7.35 - 7.45 10/26/2024 10:54 AM EDT [facility] pCO2, Arterial 36 35 - 45 mm Hg 10/26/2024 10:54 AM EDT [facility] pO2, Arterial 91 80 - 100 mm Hg 10/26/2024 10:54 AM EDT [facility] HCO3, Arterial 22 22 - 26 mmol/L 10/26/2024 10:54 AM EDT [facility] CO2 Content,Arteri al 22(L) 23 - 27 mmol/L 10/26/2024 10:54 AM EDT [facility] Base Excess, Arterial -3.9(L) -2.0 - 3.0 mmol/L 10/26/2024 10:54 AM EDT [facility] %HBO2, Arterial 94.8(L) 95.0 - 98.0 % 10/26/2024 10:54 AM EDT [facility] Carboxyhemoglo bin, Arterial 1.9 % 10/26/2024 10:54 AM EDT [facility] Comment: CARBOXYHEMOGLOBIN (CO) REFERENCE RANGES: Non-Smokers: <2 % Smokers: <8 % TOXIC: >20 % Methemoglobin, Arterial 0.7 0.0 - 1.5 % 10/26/2024 10:54 AM EDT [facility] Reduced hemoglobin, Arterial 2.5 0.0 - 5.0 % 10/26/2024 10:54 AM EDT [facility] Blood, Arterial 10/26/2024 1 0:48 AM EDT 10/26/2024 10:52 AM EDT us Shay Sifuentes MD LAB BLOOD ORDERABLES Final Resu lt [facility] [address] * (ABNORMAL) Renal Function Panel w/EGFR (10/26/2024 10:48 AM EDT) Sodium 139 133 - 146 mmol/L 10/26/2024 11:26 AM EDT [facility] Potassium 2.9(LL) 3.5 - 5.3 mmol/L 10/26/2024 11:26 AM EDT [facility] Comment:K CRITICAL VALUE WAS PREVIOUSLY CALLED Chloride 107 98 - 110 mmol/L 10/26/2024 11:26 AM EDT [facility] CO2 22 21 - 33 mmol/L 10/26/2024 11:26 AM EDT [facility] Anion Gap 10 3 - 16 mmol/L 10/26/2024 11:26 AM EDT [facility] BUN 61(H) 7 - 25 mg/dL 10/26/2024 11:26 AM EDT [facility] Creatinine 2.78(H) 0.60 - 1.30 mg/dL 10/26/2024 11:26 AM EDT [facility] Glucose 253(H) 70 - 100 mg/dL 10/26/2024 11:26 AM EDT [facility] Calcium 8.8 8.6 - 10.3 mg/dL 10/26/2024 11:26 AM EDT [facility] Phosphorus 4.1 2.1 - 4.7 mg/dL 10/26/2024 11:26 AM EDT [facility] Albumin 2.5(L) 3.5 - 5.7 g/dL 10/26/2024 11:26 AM EDT [facility] Osmolality, Calculated 314(H) 278 - 305 mOsm/kg 10/26/2024 11:26 AM EDT [facility] EGFR 28 10/26/2024 11:26 AM EDT [facility] Comment:As of [...] MD LAB BLOOD ORDERABLES Final Result [facility] [address] [place] [address], [facility] * (ABNORMAL) POC Glucose Monitoring Device (10/26/2024 10:47 AM EDT) POC Glucose Monitoring Device 234(H) 70 - 100 mg/dL 10/26/2024 10:48 AM EDT [facility] Blood 10/26/2024 10:4 7 AM EDT 10/26/2024 10:48 AM EDT us Semaj Mcnair III, MD POINT OF CARE TEST ORDERABLES Final Result Performing Organization Address [facility] Co de Phone Number [facility] [address] [facility]. [address] * CARISA Rhythm Strip - Scan (10/26/2024 10:45 AM EDT) us Scanning Uchhim SCAN DOCS - NO RESULTS Final Res ult * (ABNORMAL) POC Glucose Monitoring Device (10/26/2024 10:08 AM EDT) POC Glucose Monitoring Device 235(H) 70 - 100 mg/dL 10/26/2024 10:09 AM EDT [facility] Blood 10/26/2024 10:0 8 AM EDT 10/26/2024 10:09 AM EDT us Semaj Mcnair III, MD POINT OF CARE TEST ORDERABLES Final Result Performing Organization Address [facility] Co de Phone Number [facility] [address] [facility]. [address] * (ABNORMAL) POC Glucose Monitoring Device (10/26/2024 8:57 AM EDT) POC Glucose Monitoring Device 232(H) 70 - 100 mg/dL 10/26/2024 8:59 AM EDT [facility] Blood 10/26/2024 8:57 AM EDT 10/26/2024 8:58 AM EDT us Semaj Mcnair III, MD POINT OF CARE TEST ORDERABLES Final Result Performing Organization Address [facility] Co de Phone Number [facility] [address] [facility]. [address] * ECG 12 lead (MUSE) (10/26/2024 8:16 AM EDT) 10/26/2024 8:16 AM EDT Narrative MUSE - 10/27/2024 10:09 AM EDT Ventricular Rate: 112 BPM QRS Duration: 96 ms QT: 452 ms QTc: 616 ms R Winsted: -41 degrees T Winsted: 40 degrees Diagnosis Line: Critical Test Result: Long QTc ^ SINUS TACHYCARDIA OCCASIONAL PREMATURE VENTRICULAR COMPLEXES ^ LEFT AXIS DEVIATION, LEFT ANTERIOR HEMIBLOCK ^ PROLONGED QT ^ ABNORMAL ECG ^ ^ Confirmed by MD HA, [facility] ([id number]) on 10/27/2024 10:09:18 AM us Shay [...] Glucose Monitoring Device (10/26/2024 7:59 AM EDT) [facility] POC Glucose Monitoring Device 229(H) 70 - 100 mg/dL 10/26/2024 8:01 AM EDT [facility] Blood 10/26/2024 7:59 AM EDT 10/26/2024 8:00 AM EDT Semaj Mcnair III, MD POINT OF CARE TEST ORDERABLES Final Result [facility] [address] [place], [place] [address] * (ABNORMAL) TEG-Bypass/ECMO/Liver HN (Factor function, Platelet/Fibrin Clot Strength w/Clot Breakdown, Heparinase In All Channels) (10/26/2024 7:59 AM EDT) [facility] Signature Citrated Kaolin Reaction Time (TEGECMOLIVER) 8.2 4.6 - 9.1 minutes 10/26/2024 10:36 AM EDT [facility] Citrated Kaolin W/Heparinase Reaction Time (TEGECMOLIVER) 8.1 4.3 - 8.3 minutes 10/26/2024 10:36 AM EDT [facility] Citrated Kaolin Maximum Amplitude (TEGECMOLIVER) 46.8(L) 52.0 - 69.0 mm 10/26/2024 10:36 AM EDT [facility] Citrated Functional Fibrinogen W/Heparinase Maximum Amplitude(TEGEC MOLIVER) 10.5(L) 15.0 - 34.0 mm 10/26/2024 10:36 AM EDT [facility] Citrated Rapid Teg W/Heparinase Maximum Amplitude (TEGECMOLIVER) 45.5(L) 53.0 - 69.0 mm 10/26/2024 10:36 AM EDT [facility] Citrated Kaolin w/Heparinase Percent Lysis (TEGECMOLIVER) 0.0 0.0 - 3.2 % 10/26/2024 10:36 AM EDT [facility] Whole Blood (Citrate) 10/26/2024 7:59 AM EDT 10/26/2024 8:05 AM EDT Shay Sifuentes MD LAB BLOOD ORDERABLES Final Resu lt [facility] [address] * (ABNORMAL) POC Glucose Monitoring Device (10/26/2024 6:12 AM EDT) POC Glucose Monitoring Device 196(H) 70 - 100 mg/dL 10/26/2024 6:13 AM EDT [facility] Blood 10/26/2024 6:12 AM EDT 10/26/2024 6:13 AM EDT Semaj Mcnair III, MD POINT OF CARE TEST ORDERABLES Final Result [facility] [address] [facility]. [address] * Lactic Acid (10/26/2024 6:10 AM EDT) Lactate 1.2 0.5 - 2.2 mmol/L 10/26/2024 6:39 AM EDT [facility] Plasma 10/26/2024 6:10 AM EDT 10/26/2024 6:19 AM EDT Sveta Judge MD LAB BLOOD ORDERABLES Final Resu lt Performing Organization Address City/[facility]/ZIP Co de Phone Number [facility] [address] * (ABNORMAL) Fibrinogen (10/26/2024 6:10 AM EDT) Fibrinogen 160(L) 218 - 406 mg/dL 10/26/2024 6:41 AM EDT [facility] Plasma 10/26/2024 6:10 AM EDT 10/26/2024 6:26 AM EDT Sveta Judge MD LAB BLOOD ORDERABLES Final Resu lt Performing Organization Address [facility] Co de Phone Number [facility] [address] * (ABNORMAL) Protime-INR (10/26/2024 6:10 AM EDT) Protime 25.0(H) 12.1 - 15.1 seconds 10/26/2024 6:41 AM EDT [facility] INR 2.2(H) 0.9 - 1.1 10/26/2024 6:41 AM EDT [facility] Comment: RECOMMENDED THERAPEUTIC RANGES USING INR : Stable oral anticoagulant therapy: 2.0 - 3.0 Mechanical prosthetic heart valve: 2.5 - 3.5 Recurrent acute myocardial infarction: 2.5 - 3.5 Plasma 10/26/2024 6:10 AM EDT 10/26/2024 6:26 AM EDT Sveta Judge MD LAB BLOOD ORDERABLES Final Resu lt Performing Organization Address [facility]/ZIP Co de Phone Number [facility] [address] * (ABNORMAL) Blood gas, arterial (10/26/2024 6:10 AM EDT) O2 Sat, Arterial 98 10/26/2024 6:23 AM EDT [facility] FIO2 60 10/26/2024 6:23 AM EDT [facility] pH, Arterial 7.27(L) 7.35 - 7.45 10/26/2024 6:23 AM EDT [facility] pCO2, Arterial 47(H) 35 - 45 mm Hg 10/26/2024 6:23 AM EDT [facility] pO2, Arterial 127(H) 80 - 100 mm Hg 10/26/2024 6:23 AM EDT [facility] HCO3, Arterial 21(L) 22 - 26 mmol/L 10/26/2024 6:23 AM EDT [facility] CO2 Content,Arteri al 23 23 - 27 mmol/L 10/26/2024 6:23 AM EDT [facility] Base Excess, Arterial -5.4(L) -2.0 - 3.0 mmol/L 10/26/2024 6:23 AM EDT [facility] %HBO2, Arterial 94.6(L) 95.0 - 98.0 % 10/26/2024 6:23 AM EDT [facility] Carboxyhemoglo bin, Arterial 2.0 % 10/26/2024 6:23 AM EDT [facility] Comment: CARBOXYHEMOGLOBIN (CO) REFERENCE RANGES: Non-Smokers: <2 % Smokers: <8 % TOXIC: >20 % Methemoglobin, Arterial 1.6(H) 0.0 - 1.5 % 10/26/2024 6:23 AM EDT [facility] Reduced hemoglobin, Arterial 1.8 0.0 - 5.0 % 10/26/2024 6:23 AM EDT [facility] Blood, Arterial 10/26/2024 6 :10 AM EDT 10/26/2024 6:20 AM EDT us Sveta Judge MD LAB BLOOD ORDERABLES Final Resu lt [facility] [address] [place] [address], [facility] * Magnesium (10/26/2024 6:10 AM EDT) Magnesium 1.5 1.5 - 2.5 mg/dL 10/26/2024 7:09 AM EDT [facility] Plasma 10/26/2024 6:10 AM EDT 10/26/2024 6:23 AM EDT Sveta Judge MD LAB BLOOD ORDERABLES Final Resu lt [facility] [address] * (ABNORMAL) Hepatic Function Panel (10/26/2024 6:10 AM EDT) Total Bilirubin 6.2(H) 0.0 - 1.5 mg/dL 10/26/2024 7:11 AM EDT [facility] Bilirubin, Direct 5.26(H) 0.00 - 0.40 mg/dL 10/26/2024 7:11 AM EDT [facility] AST 1,071(H) 13 - 39 U/L 10/26/2024 7:11 AM EDT [facility] ALT 805(H) 7 - 52 U/L 10/26/2024 7:11 AM EDT [facility] Alkaline Phosphatase 55 36 - 125 U/L 10/26/2024 7:11 AM EDT [facility] Total Protein <3.0(L) 6.4 - 8.9 g/dL 10/26/2024 7:11 AM EDT [facility] Albumin 1.9(L) 3.5 - 5.7 g/dL 10/26/2024 7:11 AM EDT [facility] Bilirubin, Indirect 0.94 0.00 - 1.10 mg/dL 10/26/2024 7:11 AM EDT [facility] Plasma 10/26/2024 6:10 AM EDT 10/26/2024 6:23 AM EDT Sveta Judge MD LAB BLOOD ORDERABLES Final Resu lt [facility] [address] * (ABNORMAL) Renal Function Panel w/EGFR (10/26/2024 6:10 AM EDT) Sodium 141 133 - 146 mmol/L 10/26/2024 7:09 AM EDT [facility] Potassium 2.8(LL) 3.5 - 5.3 mmol/L 10/26/2024 7:09 AM EDT [facility] Comment:Critical value previ ously called. Chloride 106 98 - 110 mmol/L 10/26/2024 7:09 AM EDT [facility] CO2 25 21 - 33 mmol/L 10/26/2024 7:09 AM EDT [facility] Anion Gap 10 3 - 16 mmol/L 10/26/2024 7:09 AM EDT [facility] BUN 57(H) 7 - 25 mg/dL 10/26/2024 7:09 AM EDT [facility] Creatinine 2.70(H) 0.60 - 1.30 mg/dL 10/26/2024 7:09 AM EDT [facility] Glucose 210(H) 70 - 100 mg/dL 10/26/2024 7:09 AM EDT [facility] Calcium 8.7 8.6 - 10.3 mg/dL 10/26/2024 7:09 AM EDT [facility] Phosphorus 5.4(H) 2.1 - 4.7 mg/dL 10/26/2024 7:09 AM EDT [facility] Albumin 1.9(L) 3.5 - 5.7 g/dL 10/26/2024 7:11 AM EDT [facility] Osmolality, Calculated 314(H) 278 - 305 mOsm/kg 10/26/2024 7:09 AM EDT [facility] EGFR 29 10/26/2024 7:09 AM T [facility] Comment:As of [...] LAB BLOOD ORDERABLES Final Resu lt [facility] [address] [id number] * (ABNORMAL) CBC (10/26/2024 6:10 AM EDT) WBC 14.8(H) 3.8 - 10.8 10E3/uL 10/26/2024 6:46 AM EDT [facility] RBC 4.04(L) 4.20 - 5.80 10E6/uL 10/26/2024 6:46 AM EDT [facility] Hemoglobin 12.7(L) 13.2 - 17.1 g/dL 10/26/2024 6:46 AM EDT [facility] Hematocrit 35.9(L) 38.5 - 50.0 % 10/26/2024 6:46 AM EDT [facility] MCV 89.0 80.0 - 100.0 fL 10/26/2024 6:46 AM EDT [facility] MCH 31.3 27.0 - 33.0 pg 10/26/2024 6:46 AM EDT [facility] MCHC 35.2 32.0 - 36.0 g/dL 10/26/2024 6:46 AM EDT [facility] RDW 19.7(H) 11.0 - 15.0 % 10/26/2024 6:46 AM EDT [facility] Platelets 107(L) 140 - 400 10E3/uL 10/26/2024 6:46 AM EDT [facility] MPV 7.4(L) 7.5 - 11.5 fL 10/26/2024 6:46 AM EDT [facility] Whole Blood 10/26/2024 6:10 AM EDT 10/26/2024 6:26 AM EDT Sveta Judge MD LAB BLOOD ORDERABLES Final Resu lt Performing Organization Address [facility]/ZIP Co de Phone Number [facility] [address] * (ABNORMAL) POC INR (10/26/2024 5:16 AM EDT) Prothrombin Time INR, POC 2.4(H) 0.8 - 1.4 10/27/2024 6:51 AM EDT [facility] Comment: Test results may [...] Result Performing Organization Address [facility] Co de Phone Number [facility] [address] [facility] * POC Sample Type (10/26/2024 5:14 AM EDT) Pathologist [facility] [place] POC Sample Type Arterial 10/26/2024 5:31 AM EDT [facility] Blood, Arterial 10/26/2024 5 :14 AM EDT 10/26/2024 5:31 AM EDT Semaj Mcnair III, MD POINT OF CARE TEST ORDERABLES Final Result Performing Organization Address City/[facility]/ZIP Co de Phone Number [facility] [address] [facility] * POC Anion Gap (10/26/2024 5:14 AM EDT) POC Anion Gap, Arterial 12 3 - 16 mmol/L 10/26/2024 5:31 AM EDT [facility] Blood, Arterial 10/26/2024 5 :14 AM EDT 10/26/2024 5:31 AM EDT us Semaj Mcnair III, MD POINT OF CARE TEST ORDERABLES Final Result Performing Organization Address [facility]/ZIP Co de Phone Number [facility] [id number] [facility] * POC Chloride (10/26/2024 5:14 AM EDT) POC Chloride 104 98 - 110 mmol/L 10/26/2024 5:31 AM EDT [facility] Blood, Arterial 10/26/2024 5 :14 AM EDT 10/26/2024 5:31 AM EDT us Semaj Mcnair III, MD POINT OF CARE TEST ORDERABLES Final Result Performing Organization Address [facility]/ZIP Co de Phone Number [facility] [address] [facility] * (ABNORMAL) POC Hemoglobin (10/26/2024 5:14 AM EDT) POC Hemoglobin 9.5(L) 14.0 - 18.0 g/dL 10/26/2024 5:31 AM EDT [facility] Blood, Arterial 10/26/2024 5 :14 AM EDT 10/26/2024 5:31 AM EDT us Semaj Mcnair III, MD POINT OF CARE TEST ORDERABLES Final Result [facility] [address] [facility] * (ABNORMAL) POC hematocrit (10/26/2024 5:14 AM EDT) POC Hematocrit 28.0(L) 40 - 52 % 10/26/2024 5:31 AM EDT [facility] Blood, Arterial 10/26/2024 5 :14 AM EDT 10/26/2024 5:31 AM EDT us Semaj Mcnair III, MD POINT OF CARE TEST ORDERABLES Final Result Performing Organization Address [facility] Co de Phone Number [facility] [address] [facility] * POC Lactate (10/26/2024 5:14 AM EDT) POC Lactate 1.76 0.50 - 2.20 mmol/L 10/26/2024 5:31 AM EDT [facility] Blood, Arterial 10/26/2024 5 :14 AM EDT 10/26/2024 5:31 AM EDT us Semaj Mcnair III, MD POINT OF CARE TEST ORDERABLES Final Result Performing Organization Address [facility] Co de Phone Number [facility] [address] [facility] * (ABNORMAL) POC Glucose (10/26/2024 5:14 AM EDT) POC Glucose, Arterial 183(H) 70 - 100 mg/dL 10/26/2024 5:31 AM EDT [facility] Blood, Arterial 10/26/2024 5 :14 AM EDT 10/26/2024 5:31 AM EDT us Semaj Mcnair III, MD POINT OF CARE TEST ORDERABLES Final Result Performing Organization Address [facility] Co de Phone Number [facility] [address] [facility] * (ABNORMAL) POC Ionized Calcium (10/26/2024 5:14 AM EDT) POC Ionized Calcium 5.50(H) 4.50 - 5.30 mg/dL 10/26/2024 5:31 AM EDT [facility] Blood, Arterial 10/26/2024 5 :14 AM EDT 10/26/2024 5:31 AM EDT us Semaj Mcnair III, MD POINT OF CARE TEST ORDERABLES Final Result Performing Organization Address [facility] Co de Phone Number [facility] [address] [facility] * (ABNORMAL) POC Potassium (10/26/2024 5:14 AM EDT) POC Potassium 2.8(LL) 3.5 - 5.3 mmol/L 10/26/2024 5:31 AM EDT [facility] Blood, Arterial 10/26/2024 5 :14 AM EDT 10/26/2024 5:31 AM EDT us Semaj Mcnair III, MD POINT OF CARE TEST ORDERABLES Final Result Performing Organization Address [facility] Co de Phone Number [facility] [address] [facility] * POC Sodium (10/26/2024 5:14 AM EDT) POC Sodium 138 136 - 146 mmol/L 10/26/2024 5:31 AM EDT [facility] Blood, Arterial 10/26/2024 5 :14 AM EDT 10/26/2024 5:31 AM EDT us Semaj Mcnair III, MD POINT OF CARE TEST ORDERABLES Final Result Performing Organization Address [facility] Co de Phone Number [facility] [address] [facility] * POC TCO2 (10/26/2024 5:14 AM EDT) POC TCO2, Arterial 23 23 - 27 mmol/L 10/26/2024 5:31 AM EDT [facility] Blood, Arterial 10/26/2024 5 :14 AM EDT 10/26/2024 5:31 AM EDT Semaj Mcnair III, MD POINT OF CARE TEST ORDERABLES Final Result [facility] [address] * (ABNORMAL) POC O2 SAT (10/26/2024 5:14 AM EDT) POC O2 Saturation, Arterial 99(H) 95 - 98 % 10/26/2024 5:31 AM EDT [facility] Blood, Arterial 10/26/2024 5 :14 AM EDT 10/26/2024 5:31 AM EDT Semaj Mcnair III, MD POINT OF CARE TEST ORDERABLES Final Result Performing Organization Address [facility] Co de Phone Number [facility] [address] * (ABNORMAL) POC Base Excess (10/26/2024 5:14 AM EDT) POC Base Excess, Arterial -5(L) -2 - 3 mmol/L 10/26/2024 5:31 AM EDT [facility] Blood, Arterial 10/26/2024 5 :14 AM EDT 10/26/2024 5:31 AM EDT Semaj Mcnair III, MD POINT OF CARE TEST ORDERABLES Final Result [facility] [address] * POC HCO3 (10/26/2024 5:14 AM EDT) POC HCO3, Arterial 22 22 - 26 mmol/L 10/26/2024 5:31 AM EDT [facility] Blood, Arterial 10/26/2024 5 :14 AM EDT 10/26/2024 5:31 AM EDT Semaj Mcnair III, MD POINT OF CARE TEST ORDERABLES Final Result [facility] [address] * (ABNORMAL) POC PO2 (10/26/2024 5:14 AM EDT) POC pO2, Arterial 133(H) 80 - 100 mm Hg 10/26/2024 5:31 AM EDT [facility] Blood, Arterial 10/26/2024 5 :14 AM EDT 10/26/2024 5:31 AM EDT Semaj Mcnair III, MD POINT OF CARE TEST ORDERABLES Final Result Performing Organization Address [facility]/ZIP Co de Phone Number [facility] [address] [facility] * POC PCO2 (10/26/2024 5:14 AM EDT) POC pCO2, Arterial 45 35 - 45 mm Hg 10/26/2024 5:31 AM EDT [facility] Blood, Arterial 10/26/2024 5 :14 AM EDT 10/26/2024 5:31 AM EDT Semaj Mcnair III, MD POINT OF CARE TEST ORDERABLES Final Result [facility] [address] [facility] * (ABNORMAL) POC pH (10/26/2024 5:14 AM EDT) POC pH, Arterial 7.29(L) 7.35 - 7.45 10/26/2024 5:31 AM EDT [facility] Blood, Arterial 10/26/2024 5 :14 AM EDT 10/26/2024 5:31 AM EDT us Semaj Mcnair III, MD POINT OF CARE TEST ORDERABLES Final Result Performing Organization Address [facility] Co de Phone Number [facility] [address] * Transfuse Cryoprecipitate (10/26/2024 4:37 AM EDT) Eber Quinones MD NURSING TREATMENT ORDERA BLES - BLOOD ADMIN Final Result * Transfuse Cryoprecipitate (10/26/2024 4:37 AM EDT) Eber Quinones MD NURSING TREATMENT ORDERA BLES - BLOOD ADMIN Final Result * (ABNORMAL) POC INR (10/26/2024 4:27 AM EDT) Prothrombin Time INR, POC 2.3(H) 0.8 - 1.4 10/27/2024 6:51 AM EDT [facility] Comment: Test results may [...] Result Performing Organization Address [facility] Co de Phone Number [facility] [address] [facility] * POC Sample Type (10/26/2024 4:24 AM EDT) POC Sample Type Arterial 10/26/2024 5:09 AM EDT [facility] Blood, Arterial 10/26/2024 4 :24 AM EDT 10/26/2024 5:09 AM EDT Semaj Mcnair III, MD POINT OF CARE TEST ORDERABLES Final Result [facility] [address] * POC Anion Gap (10/26/2024 4:24 AM EDT) POC Anion Gap, Arterial 14 3 - 16 mmol/L 10/26/2024 5:09 AM EDT [facility] Blood, Arterial 10/26/2024 4 :24 AM EDT 10/26/2024 5:09 AM EDT us Semaj Mcnair III, MD POINT OF CARE TEST ORDERABLES Final Result [facility] [address] * POC Chloride (10/26/2024 4:24 AM EDT) POC Chloride 103 98 - 110 mmol/L 10/26/2024 5:09 AM EDT [facility] Blood, Arterial 10/26/2024 4 :24 AM EDT 10/26/2024 5:09 AM EDT us Semaj Mcnair III, MD POINT OF CARE TEST ORDERABLES Final Result [facility] [address] * (ABNORMAL) POC Hemoglobin (10/26/2024 4:24 AM EDT) POC Hemoglobin 10.3(L) 14.0 - 18.0 g/dL 10/26/2024 5:09 AM EDT [facility] Blood, Arterial 10/26/2024 4 :24 AM EDT 10/26/2024 5:09 AM EDT us Seamj Mcnair III, MD POINT OF CARE TEST ORDERABLES Final Result [facility] [address] * (ABNORMAL) POC hematocrit (10/26/2024 4:24 AM EDT) POC Hematocrit 30.0(L) 40 - 52 % 10/26/2024 5:09 AM EDT [facility] Blood, Arterial 10/26/2024 4 :24 AM EDT 10/26/2024 5:09 AM EDT us Semaj Mcnair III, MD POINT OF CARE TEST ORDERABLES Final Result [facility] [address] * (ABNORMAL) POC Lactate (10/26/2024 4:24 AM EDT) POC Lactate 2.43(H) 0.50 - 2.20 mmol/L 10/26/2024 5:09 AM EDT [facility] Blood, Arterial 10/26/2024 4 :24 AM EDT 10/26/2024 5:09 AM EDT us Semaj Mcnair III, MD POINT OF CARE TEST ORDERABLES Final Result Performing Organization Address [facility]/ZIP Co de Phone Number [facility] [address] * (ABNORMAL) POC Glucose (10/26/2024 4:24 AM EDT) POC Glucose, Arterial 185(H) 70 - 100 mg/dL 10/26/2024 5:09 AM EDT [facility] Blood, Arterial 10/26/2024 4 :24 AM EDT 10/26/2024 5:09 AM EDT us Semaj Mcnair III, MD POINT OF CARE TEST ORDERABLES Final Result [facility] [address] * POC Ionized Calcium (10/26/2024 4:24 AM EDT) POC Ionized Calcium 5.20 4.50 - 5.30 mg/dL 10/26/2024 5:09 AM EDT [facility] Blood, Arterial 10/26/2024 4 :24 AM EDT 10/26/2024 5:09 AM EDT us Semaj Mcnair III, MD POINT OF CARE TEST ORDERABLES Final Result [facility] [address] * (ABNORMAL) POC Potassium (10/26/2024 4:24 AM EDT) POC Potassium 2.8(LL) 3.5 - 5.3 mmol/L 10/26/2024 5:09 AM EDT [facility] Blood, Arterial 10/26/2024 4 :24 AM EDT 10/26/2024 5:09 AM EDT us Semaj Mcnair III, MD POINT OF CARE TEST ORDERABLES Final Result Performing Organization Address [facility]/ZIP Co de Phone Number [facility] [address] * POC Sodium (10/26/2024 4:24 AM EDT) POC Sodium 139 136 - 146 mmol/L 10/26/2024 5:09 AM EDT [facility] Blood, Arterial 10/26/2024 4 :24 AM EDT 10/26/2024 5:09 AM EDT us Semaj Mcnair III, MD POINT OF CARE TEST ORDERABLES Final Result [facility] [address] * POC TCO2 (10/26/2024 4:24 AM EDT) POC TCO2, Arterial 23 23 - 27 mmol/L 10/26/2024 5:09 AM EDT [facility] Blood, Arterial 10/26/2024 4 :24 AM EDT 10/26/2024 5:09 AM EDT us Semaj Mcnair III, MD POINT OF CARE TEST ORDERABLES Final Result [facility] [address] * POC O2 SAT (10/26/2024 4:24 AM EDT) [facility] POC O2 Saturation, Arterial 96 95 - 98 % 10/26/2024 5:09 AM EDT [facility] Blood, Arterial 10/26/2024 4 :24 AM EDT 10/26/2024 5:09 AM EDT us Semaj Mcnair III, MD POINT OF CARE TEST ORDERABLES Final Result Performing Organization Address [facility] Co de Phone Number [facility] [address] [facility] * (ABNORMAL) POC Base Excess (10/26/2024 4:24 AM EDT) [facility] POC Base Excess, Arterial -5(L) -2 - 3 mmol/L 10/26/2024 5:09 AM EDT [facility] Blood, Arterial 10/26/2024 4 :24 AM EDT 10/26/2024 5:09 AM EDT us Semaj Mcnair III, MD POINT OF CARE TEST ORDERABLES Final Result [facility] [address] [facility] * POC HCO3 (10/26/2024 4:24 AM EDT) POC HCO3, Arterial 22 22 - 26 mmol/L 10/26/2024 5:09 AM EDT [facility] Blood, Arterial 10/26/2024 4 :24 AM EDT 10/26/2024 5:09 AM EDT us Semaj Mcnair III, MD POINT OF CARE TEST ORDERABLES Final Result Performing Organization Address [facility]/ZIP Co de Phone Number [facility] [address] * POC PO2 (10/26/2024 4:24 AM EDT) POC pO2, Arterial 93 80 - 100 mm Hg 10/26/2024 5:09 AM EDT [facility] Blood, Arterial 10/26/2024 4 :24 AM EDT 10/26/2024 5:09 AM EDT us Semaj Mcnair III, MD POINT OF CARE TEST ORDERABLES Final Result Performing Organization Address [facility] de Phone Number [facility] [address] * POC PCO2 (10/26/2024 4:24 AM EDT) POC pCO2, Arterial 44 35 - 45 mm Hg 10/26/2024 5:09 AM EDT [facility] Blood, Arterial 10/26/2024 4 :24 AM EDT 10/26/2024 5:09 AM EDT us Semaj Mcnair III, MD POINT OF CARE TEST ORDERABLES Final Result Performing Organization Address [facility] Co de Phone Number [facility] [address] [place] [address]. [address] * (ABNORMAL) POC pH (10/26/2024 4:24 AM EDT) POC pH, Arterial 7.30(L) 7.35 - 7.45 10/26/2024 5:09 AM EDT [facility] Blood, Arterial 10/26/2024 4 :24 AM EDT 10/26/2024 5:09 AM EDT Semaj Mcnair III, MD POINT OF CARE TEST ORDERABLES Final Result Performing Organization Address [facility]/ZIP Co de Phone Number [facility] [address] [facility] * Transfuse Platelets (10/26/2024 4:14 AM [...] OF CARE TEST ORDERABLES Final Result [facility] [address] * POC Sample Type (10/26/2024 3:31 AM EDT) POC Sample Type Arterial 10/26/2024 4:11 AM EDT [facility] Blood, Arterial 10/26/2024 3 :31 AM EDT 10/26/2024 4:11 AM EDT us Semaj Mcnair III, MD POINT OF CARE TEST ORDERABLES Final Result Performing Organization Address [facility] Co de Phone Number [facility] [address] * POC Anion Gap (10/26/2024 3:31 AM EDT) POC Anion Gap, Arterial 15 3 - 16 mmol/L 10/26/2024 4:11 AM EDT [facility] Blood, Arterial 10/26/2024 3 :31 AM EDT 10/26/2024 4:11 AM EDT us Semaj Mcnair III, MD POINT OF CARE TEST ORDERABLES Final Result Performing Organization Address [facility] Co de Phone Number [facility] [address] * POC Chloride (10/26/2024 3:31 AM EDT) POC Chloride 105 98 - 110 mmol/L 10/26/2024 4:11 AM EDT [facility] Blood, Arterial 10/26/2024 3 :31 AM EDT 10/26/2024 4:11 AM EDT us Semaj Mcnair III, MD POINT OF CARE TEST ORDERABLES Final Result Performing Organization Address [facility] Co de Phone Number [facility] [address] * (ABNORMAL) POC Hemoglobin (10/26/2024 3:31 AM EDT) POC Hemoglobin 9.7(L) 14.0 - 18.0 g/dL 10/26/2024 4:11 AM EDT [facility] Blood, Arterial 10/26/2024 3 :31 AM EDT 10/26/2024 4:11 AM EDT us Semaj Mcnair III, MD POINT OF CARE TEST ORDERABLES Final Result Performing Organization Address [facility] Co de Phone Number [facility] [address] * (ABNORMAL) POC hematocrit (10/26/2024 3:31 AM EDT) POC Hematocrit 29.0(L) 40 - 52 % 10/26/2024 4:11 AM EDT [facility] Blood, Arterial 10/26/2024 3 :31 AM EDT 10/26/2024 4:11 AM EDT us Semaj Mcnair III, MD POINT OF CARE TEST ORDERABLES Final Result Performing Organization Address [facility] Co de Phone Number [facility] [address] * (ABNORMAL) POC Lactate (10/26/2024 3:31 AM EDT) POC Lactate 3.54(H) 0.50 - 2.20 mmol/L 10/26/2024 4:11 AM EDT [facility] Blood, Arterial 10/26/2024 3 :31 AM EDT 10/26/2024 4:11 AM EDT us Semaj Mcnair III, MD POINT OF CARE TEST ORDERABLES Final Result Performing Organization Address [facility] Co de Phone Number [facility] [address] * (ABNORMAL) POC Glucose (10/26/2024 3:31 AM EDT) POC Glucose, Arterial 153(H) 70 - 100 mg/dL 10/26/2024 4:11 AM EDT [facility] Blood, Arterial 10/26/2024 3 :31 AM EDT 10/26/2024 4:11 AM EDT us Semaj Mcnair III, MD POINT OF CARE TEST ORDERABLES Final Result Performing Organization Address [facility]/ZIP Co de Phone Number [facility] [address] * POC Ionized Calcium (10/26/2024 3:31 AM EDT) POC Ionized Calcium 5.10 4.50 - 5.30 mg/dL 10/26/2024 4:11 AM EDT [facility] Blood, Arterial 10/26/2024 3 :31 AM EDT 10/26/2024 4:11 AM EDT us Semaj Mcnair III, MD POINT OF CARE TEST ORDERABLES Final Result Performing Organization Address [facility] Co de Phone Number [facility] [address] [place] [address]. [address] * (ABNORMAL) POC Potassium (10/26/2024 3:31 AM EDT) POC Potassium 2.6(LL) 3.5 - 5.3 mmol/L 10/26/2024 4:11 AM EDT [facility] Blood, Arterial 10/26/2024 3 :31 AM EDT 10/26/2024 4:11 AM EDT us Semaj Mcnair III, MD POINT OF CARE TEST ORDERABLES Final Result [facility] [address] [facility] * POC Sodium (10/26/2024 3:31 AM EDT) POC Sodium 138 136 - 146 mmol/L 10/26/2024 4:11 AM EDT [facility] Blood, Arterial 10/26/2024 3 :31 AM EDT 10/26/2024 4:11 AM EDT us Semaj Mcnair III, MD POINT OF CARE TEST ORDERABLES Final Result [facility] [address] * (ABNORMAL) POC TCO2 (10/26/2024 3:31 AM EDT) POC TCO2, Arterial 19(L) 23 - 27 mmol/L 10/26/2024 4:11 AM EDT [facility] Blood, Arterial 10/26/2024 3 :31 AM EDT 10/26/2024 4:11 AM EDT us Semaj Mcnair III, MD POINT OF CARE TEST ORDERABLES Final Result Performing Organization Address [facility] Co de Phone Number [facility] [address] [facility] * POC O2 SAT (10/26/2024 3:31 AM EDT) POC O2 Saturation, Arterial 97 95 - 98 % 10/26/2024 4:11 AM EDT [facility] Blood, Arterial 10/26/2024 3 :31 AM EDT 10/26/2024 4:11 AM EDT us Semaj Mcnair III, MD POINT OF CARE TEST ORDERABLES Final Result Performing Organization Address [facility]/ZIP Co de Phone Number [facility] [address] [facility] * (ABNORMAL) POC Base Excess (10/26/2024 3:31 AM EDT) POC Base Excess, Arterial -9(L) -2 - 3 mmol/L 10/26/2024 4:11 AM EDT [facility] Blood, Arterial 10/26/2024 3 :31 AM EDT 10/26/2024 4:11 AM EDT us Semaj Mcnair III, MD POINT OF CARE TEST ORDERABLES Final Result [facility] [address] [facility] * (ABNORMAL) POC HCO3 (10/26/2024 3:31 AM EDT) POC HCO3, Arterial 18(L) 22 - 26 mmol/L 10/26/2024 4:11 AM EDT [facility] Blood, Arterial 10/26/2024 3 :31 AM EDT 10/26/2024 4:11 AM EDT us Semaj Mcnair III, MD POINT OF CARE TEST ORDERABLES Final Result Performing Organization Address [facility] Co de Phone Number [facility] [address] [facility] * (ABNORMAL) POC PO2 (10/26/2024 3:31 AM EDT) POC pO2, Arterial 104(H) 80 - 100 mm Hg 10/26/2024 4:11 AM EDT [facility] Blood, Arterial 10/26/2024 3 :31 AM EDT 10/26/2024 4:11 AM EDT us Semaj Mcnair III, MD POINT OF CARE TEST ORDERABLES Final Result Performing Organization Address [facility]/ZIP Co de Phone Number [facility] [address] [facility] * POC PCO2 (10/26/2024 3:31 AM EDT) POC pCO2, Arterial 42 35 - 45 mm Hg 10/26/2024 4:11 AM EDT [facility] Blood, Arterial 10/26/2024 3 :31 AM EDT 10/26/2024 4:11 AM EDT us Semaj Mcnair III, MD POINT OF CARE TEST ORDERABLES Final Result [facility] [address] * (ABNORMAL) POC pH (10/26/2024 3:31 AM EDT) [facility] POC pH, Arterial 7.24(L) 7.35 - 7.45 10/26/2024 4:11 AM EDT [facility] Blood, Arterial 10/26/2024 3 :31 AM EDT 10/26/2024 4:11 AM EDT us Semaj Mcnair III, MD POINT OF CARE TEST ORDERABLES Final Result Performing Organization Address [facility] Co de Phone Number [facility] [address] [facility] * (ABNORMAL) TEG-Global With Lysis (Baseline TEG with LY30, Will NOT Show Heparin Effect) (53:31 AM EDT) [facility] Citrated Kaolin Reaction Time (TEGLYSIS) 6.8 4.6 - 9.1 minutes 10/26/2024 5:02 AM EDT [facility] Citrated Rapid Teg Maximum Amplitude (TEGLYSIS) <40.0(L) 52.0 - 70.0 mm 10/26/2024 5:02 AM EDT [facility] Citrated Functional Fibrinogen Maximum Amplitude (TEGLYSIS) <4.0(L) 15.0 - 32.0 mm 10/26/2024 5:02 AM EDT [facility] Citrated Kaolin Percent Lysis (TEGLYSIS) 1.4 0.0 - 2.6 % 10/26/2024 5:02 AM EDT [facility] Whole Blood (Citrate) 10/26/2024 3:31 AM EDT 10/26/2024 3:40 AM EDT us Eber Quinones MD LAB BLOOD ORDERABLES Fin al Result Performing Organization Address [facility]/ZIP Co de Phone Number [facility] [address] * (ABNORMAL) CBC (10/26/2024 3:31 AM EDT) WBC 9.5 3.8 - 10.8 10E3/uL 10/26/2024 3:48 AM EDT [facility] RBC 3.68(L) 4.20 - 5.80 10E6/uL 10/26/2024 3:48 AM EDT [facility] Hemoglobin 11.5(L) 13.2 - 17.1 g/dL 10/26/2024 3:48 AM EDT [facility] Hematocrit 33.0(L) 38.5 - 50.0 % 10/26/2024 3:48 AM EDT [facility] MCV 89.6 80.0 - 100.0 fL 10/26/2024 3:48 AM EDT [facility] MCH 31.1 27.0 - 33.0 pg 10/26/2024 3:48 AM EDT [facility] MCHC 34.8 32.0 - 36.0 g/dL 10/26/2024 3:48 AM EDT [facility] RDW 19.3(H) 11.0 - 15.0 % 10/26/2024 3:48 AM EDT [facility] Platelets 67(L) 140 - 400 10E3/uL 10/26/2024 3:48 AM EDT [facility] MPV 7.9 7.5 - 11.5 fL 10/26/2024 3:48 AM EDT [facility] Whole Blood 10/26/2024 3:31 AM EDT 10/26/2024 3:40 AM EDT us Eber Quinones MD LAB BLOOD ORDERABLES Fin al Result [facility] [address] * (ABNORMAL) Protime-INR (10/26/2024 3:31 AM EDT) Protime 27.0(H) 12.1 - 15.1 seconds 10/26/2024 3:51 AM EDT [facility] INR 2.4(H) 0.9 - 1.1 10/26/2024 3:51 AM EDT [facility] Comment: RECOMMENDED THERAPEUTIC RANGES USING INR : Stable oral anticoagulant therapy: 2.0 - 3.0 Mechanical prosthetic heart valve: 2.5 - 3.5 Recurrent acute myocardial infarction: 2.5 - 3.5 Plasma 10/26/2024 3:31 AM EDT 10/26/2024 3:40 AM EDT Result [facility] Eber Quinones MD LAB BLOOD ORDERABLES Fin al Result Performing Organization Address [facility] Co de Phone Number [facility] [address] [facility] * (ABNORMAL) Fibrinogen (10/26/2024 3:31 AM EDT) [facility] Signature Fibrinogen 104(L) 218 - 406 mg/dL 10/26/2024 3:56 AM EDT [facility] Plasma 10/26/2024 3:31 AM EDT 10/26/2024 3:40 AM EDT Result [facility] Eber Quinones MD LAB BLOOD ORDERABLES Fin al Result Performing Organization Address [facility] de Phone Number [facility] [address] [facility]. [address] * Transfuse Fresh Frozen Plasma (10/26/2024 3:16 AM EDT) Result [facility] Ben Blake MD NURSING TREATMENT ORDERABLES - BLOOD ADMIN Final Result * Transfuse Fresh Frozen Plasma (10/26/2024 3:15 AM EDT) Result [facility] Ben Blake MD NURSING TREATMENT ORDERABLES - BLOOD ADMIN Final Result * Transfuse RBC (10/26/2024 3:14 AM EDT) Result [facility] Ben Blake MD NURSING TREATMENT ORDERABLES - BLOOD ADMIN Final Result * Transfuse RBC (10/26/2024 3:14 AM EDT) Result [facility] Ben Blake MD NURSING TREATMENT ORDERABLES - BLOOD ADMIN Final Result * Transfuse RBC (10/26/2024 2:40 AM EDT) Ben Blake MD NURSING TREATMENT ORDERABLES - BLOOD ADMIN Final Result * Transfuse Fresh Frozen Plasma (10/26/2024 2:39 AM EDT) Result Tiburcio Blake MD NURSING TREATMENT ORDERABLES - BLOOD ADMIN Final Result * Transfuse Fresh Frozen Plasma (10/26/2024 2:24 AM EDT) Result [facility] Ben Blake MD NURSING TREATMENT ORDERABLES - BLOOD ADMIN Final Result * Transfuse Fresh Frozen Plasma (10/26/2024 2:03 AM EDT) Result [facility] us Ben Blake MD NURSING TREATMENT ORDERABLES - BLOOD ADMIN Final Result * Transfuse RBC (10/26/2024 2:01 AM EDT) Result [facility] Ben Blake MD NURSING TREATMENT ORDERABLES - BLOOD ADMIN Final Result * Transfuse RBC (10/26/2024 1:45 AM EDT) Result [facility] Ben Blake MD NURSING TREATMENT ORDERABLES - BLOOD ADMIN Final Result * Transfuse RBC (10/26/2024 1:45 AM EDT) Result [facility] Ben Blake MD NURSING TREATMENT ORDERABLES - BLOOD ADMIN Final Result * (ABNORMAL) POC INR (10/26/2024 1:43 AM EDT) [facility] Prothrombin Time INR, POC 1.9(H) [...] AM EDT 10/27/2024 6:51 AM EDT Result [facility] us Semaj Mcnair III, MD POINT OF CARE TEST ORDERABLES Final Result [facility] [address] [place], [place] [id number] [place] [address] * Transfuse Fresh Frozen Plasma (10/26/2024 1:41 AM EDT) us Ben Blake MD NURSING TREATMENT ORDERABLES - BLOOD ADMIN Final Result * Transfuse RBC (10/26/2024 1:40 AM EDT) us Ben Blake MD NURSING TREATMENT ORDERABLES - BLOOD ADMIN Final Result * POC Sample Type (10/26/2024 1:40 AM EDT) POC Sample Type Arterial 10/26/2024 2:32 AM EDT [facility] Blood, Arterial 10/26/2024 1 :40 AM EDT 10/26/2024 2:32 AM EDT Result [facility] us Semaj Mcnair III, MD POINT OF CARE TEST ORDERABLES Final Result Performing Organization Address [facility] Co de Phone Number [facility] [address] [place] [address]. [address] * POC Anion Gap (10/26/2024 1:40 AM EDT) Pathologist [facility] POC Anion Gap, Arterial 13 3 - 16 mmol/L 10/26/2024 2:32 AM EDT [facility] Blood, Arterial 10/26/2024 1 :40 AM EDT 10/26/2024 2:32 AM EDT Result [facility] us Semaj Mcnair III, MD POINT OF CARE TEST ORDERABLES Final Result Performing Organization Address [facility] Co de Phone Number [facility] [address] [place] [address]. [address] * POC Chloride (10/26/2024 1:40 AM EDT) Pathologist [facility] POC Chloride 104 98 - 110 mmol/L 10/26/2024 2:32 AM EDT [facility] Blood, Arterial 10/26/2024 1 :40 AM EDT 10/26/2024 2:32 AM EDT us Semaj Mcnair III, MD POINT OF CARE TEST ORDERABLES Final Result [facility] [address] [facility]. [address] * (ABNORMAL) POC Hemoglobin (10/26/2024 1:40 AM EDT) POC Hemoglobin 7.4(L) 14.0 - 18.0 g/dL 10/26/2024 2:32 AM EDT [facility] Blood, Arterial 10/26/2024 1 :40 AM EDT 10/26/2024 2:32 AM EDT us Semaj Mcnair III, MD POINT OF CARE TEST ORDERABLES Final Result Performing Organization Address [facility] Co de Phone Number [facility] [address] [place] [address]. [address] * (ABNORMAL) POC hematocrit (10/26/2024 1:40 AM EDT) POC Hematocrit 22.0(L) 40 - 52 % 10/26/2024 2:32 AM EDT [facility] Blood, Arterial 10/26/2024 1 :40 AM EDT 10/26/2024 2:32 AM EDT us Semaj Mcnair III, MD POINT OF CARE TEST ORDERABLES Final Result Performing Organization Address [facility] Co de Phone Number [facility] [address]. [address] * (ABNORMAL) POC Lactate (10/26/2024 1:40 AM EDT) POC Lactate 2.30(H) 0.50 - 2.20 mmol/L 10/26/2024 2:32 AM EDT [facility] Blood, Arterial 10/26/2024 1 :40 AM EDT 10/26/2024 2:32 AM EDT us Semaj Mcnair III, MD POINT OF CARE TEST ORDERABLES Final Result Performing Organization Address [facility]/ZIP Co de Phone Number [facility] [address] * (ABNORMAL) POC Glucose (10/26/2024 1:40 AM EDT) POC Glucose, Arterial 116(H) 70 - 100 mg/dL 10/26/2024 2:32 AM EDT [facility] Blood, Arterial 10/26/2024 1 :40 AM EDT 10/26/2024 2:32 AM EDT Semaj Mcnair III, MD POINT OF CARE TEST ORDERABLES Final Result Performing Organization Address [facility] Co de Phone Number [facility] [address] [place] [address] * (ABNORMAL) POC Ionized Calcium (10/26/2024 1:40 AM EDT) POC Ionized Calcium 4.10(L) 4.50 - 5.30 mg/dL 10/26/2024 2:32 AM EDT [facility] Blood, Arterial 10/26/2024 1 :40 AM EDT 10/26/2024 2:32 AM EDT Result [facility] Semaj Mcnair III, MD POINT OF CARE TEST ORDERABLES Final Result Performing Organization Address [facility] Co de Phone Number [facility] [address] [address] * (ABNORMAL) POC Potassium (10/26/2024 1:40 AM EDT) POC Potassium 2.6(LL) 3.5 - 5.3 mmol/L 10/26/2024 2:32 AM EDT [facility] Blood, Arterial 10/26/2024 1 :40 AM EDT 10/26/2024 2:32 AM EDT us Semaj Mcnair III, MD POINT OF CARE TEST ORDERABLES Final Result [facility] [address] [facility]. [address] * (ABNORMAL) POC Sodium (10/26/2024 1:40 AM EDT) POC Sodium 135(L) 136 - 146 mmol/L 10/26/2024 2:32 AM EDT [facility] Blood, Arterial 10/26/2024 1 :40 AM EDT 10/26/2024 2:32 AM EDT Semaj Mcnair III, MD POINT OF CARE TEST ORDERABLES Final Result Performing Organization Address [facility] Co de Phone Number [facility] [address] [facility]. [address] * (ABNORMAL) POC TCO2 (10/26/2024 1:40 AM EDT) POC TCO2, Arterial 19(L) 23 - 27 mmol/L 10/26/2024 2:32 AM EDT [facility] Blood, Arterial 10/26/2024 1 :40 AM EDT 10/26/2024 2:32 AM EDT us Semaj Mcnair III, MD POINT OF CARE TEST ORDERABLES Final Result Performing Organization Address [facility]/ZIP Co de Phone Number [facility] [address] [facility]. [address] * (ABNORMAL) POC O2 SAT (10/26/2024 1:40 AM EDT) POC O2 Saturation, Arterial 99(H) 95 - 98 % 10/26/2024 2:32 AM EDT [facility] Blood, Arterial 10/26/2024 1 :40 AM EDT 10/26/2024 2:32 AM EDT us Semaj Mcnair III, MD POINT OF CARE TEST ORDERABLES Final Result Performing Organization Address [facility] Co de Phone Number [facility] [address] [facility]. [address] * (ABNORMAL) POC Base Excess (10/26/2024 1:40 AM EDT) POC Base Excess, Arterial -7(L) -2 - 3 mmol/L 10/26/2024 2:32 AM EDT [facility] Blood, Arterial 10/26/2024 1 :40 AM EDT 10/26/2024 2:32 AM EDT us Semaj Mcnair III, MD POINT OF CARE TEST ORDERABLES Final Result Performing Organization Address [facility] Co de Phone Number [facility] [address] [facility]. [address] * (ABNORMAL) POC HCO3 (10/26/2024 1:40 AM EDT) POC HCO3, Arterial 18(L) 22 - 26 mmol/L 10/26/2024 2:32 AM EDT [facility] Blood, Arterial 10/26/2024 1 :40 AM EDT 10/26/2024 2:32 AM EDT us Semaj Mcnair III, MD POINT OF CARE TEST ORDERABLES Final Result Performing Organization Address [facility] Co de Phone Number [facility] [address] [facility]. [address] * (ABNORMAL) POC PO2 (10/26/2024 1:40 AM EDT) POC pO2, Arterial 145(H) 80 - 100 mm Hg 10/26/2024 2:32 AM EDT [facility] Blood, Arterial 10/26/2024 1 :40 AM EDT 10/26/2024 2:32 AM EDT us Semaj Mcnair III, MD POINT OF CARE TEST ORDERABLES Final Result Performing Organization Address [facility] Co de Phone Number [facility] [address] [facility]. [address] * (ABNORMAL) POC PCO2 (10/26/2024 1:40 AM EDT) POC pCO2, Arterial 33(L) 35 - 45 mm Hg 10/26/2024 2:32 AM EDT [facility] Blood, Arterial 10/26/2024 1 :40 AM EDT 10/26/2024 2:32 AM EDT Semaj Mcnair III, MD POINT OF CARE TEST ORDERABLES Final Result Performing Organization Address [facility] Co de Phone Number [facility] [address] [facility]. [address] * POC pH (10/26/2024 1:40 AM EDT) Pathologist [facility] POC pH, Arterial 7.35 7.35 - 7.45 10/26/2024 2:32 AM EDT [facility] Blood, Arterial 10/26/2024 1 :40 AM EDT 10/26/2024 2:32 AM EDT Semaj Mcnair III, MD POINT OF CARE TEST ORDERABLES Final Result Performing Organization Address [facility] Co de Phone Number [facility] [address] [facility] * Transfuse Fresh Frozen Plasma (10/26/2024 1:20 AM EDT) us Ben Blake MD NURSING TREATMENT ORDERABLES - BLOOD ADMIN Final Result * Transfuse RBC (10/26/2024 12:56 AM EDT) us Ben Blake MD NURSING TREATMENT ORDERABLES - BLOOD ADMIN Final Result * (ABNORMAL) POC INR (10/26/2024 12:41 AM EDT) Prothrombin Time INR, POC 2.0(H) 0.8 - 1.4 10/27/2024 6:51 AM EDT [facility] Comment: Test results may vary using different testing platforms. Serial result monitoring should be performed using the same methodology. RECOMMENDED THERAPEUTIC RANGES USING INR : Stable oral anticoagulant therapy: 2.0 - 3.0 Mechanical prosthetic heart valve: 2.5 - 3.5 Recurrent acute myocardial infarction: 2.5 - 3.5 Blood 10/26/2024 12:4 1 AM EDT 10/27/2024 6:51 AM EDT Semaj Mcnair III, MD POINT OF CARE TEST ORDERABLES Final Result [facility] [address] [facility] [address] * POC Sample Type (10/26/2024 12:39 AM EDT) POC Sample Type Arterial 10/26/2024 1:38 AM EDT [facility] Blood, Arterial 10/26/2024 1 2:39 AM EDT 10/26/2024 1:38 AM EDT us Semaj Mcnair III, MD POINT OF CARE TEST ORDERABLES Final Result Performing Organization Address [facility] Co de Phone Number [facility] [address] * POC Anion Gap (10/26/2024 12:39 AM EDT) POC Anion Gap, Arterial 13 3 - 16 mmol/L 10/26/2024 1:38 AM EDT [facility] Blood, Arterial 10/26/2024 1 2:39 AM EDT 10/26/2024 1:38 AM EDT us Semaj Mcnair III, MD POINT OF CARE TEST ORDERABLES Final Result Performing Organization Address [facility] Co de Phone Number [facility] [address] * POC Chloride (10/26/2024 12:39 AM EDT) POC Chloride 103 98 - 110 mmol/L 10/26/2024 1:38 AM EDT [facility] Blood, Arterial 10/26/2024 1 2:39 AM EDT 10/26/2024 1:38 AM EDT us Semaj Mcnair III, MD POINT OF CARE TEST ORDERABLES Final Result Performing Organization Address [facility] Co de Phone Number [facility] [address] [facility] * (ABNORMAL) POC Hemoglobin (10/26/2024 12:39 AM EDT) Pathologist [facility] POC Hemoglobin 7.9(L) 14.0 - 18.0 g/dL 10/26/2024 1:38 AM EDT [facility] Blood, Arterial 10/26/2024 1 2:39 AM EDT 10/26/2024 1:38 AM EDT us Semaj Mcnair III, MD POINT OF CARE TEST ORDERABLES Final Result Performing Organization Address [facility] Co de Phone Number [facility] [address] [place] [address]. [address] * (ABNORMAL) POC hematocrit (10/26/2024 12:39 AM EDT) Pathologist [facility] POC Hematocrit 23.0(L) 40 - 52 % 10/26/2024 1:38 AM EDT [facility] Blood, Arterial 10/26/2024 1 2:39 AM EDT 10/26/2024 1:38 AM EDT us Semaj Mcnair III, MD POINT OF CARE TEST ORDERABLES Final Result Performing Organization Address [facility] Co de Phone Number [facility] [address] [place] [address]. [address] * POC Lactate (10/26/2024 12:39 AM EDT) POC Lactate 1.39 0.50 - 2.20 mmol/L 10/26/2024 1:38 AM EDT [facility] Blood, Arterial 10/26/2024 1 2:39 AM EDT 10/26/2024 1:38 AM EDT us Semaj Mcnair III, MD POINT OF CARE TEST ORDERABLES Final Result Performing Organization Address [facility] Co de Phone Number [facility] [address] [place] [address]. [address] * (ABNORMAL) POC Glucose (10/26/2024 12:39 AM EDT) Pathologist [facility] POC Glucose, Arterial 116(H) 70 - 100 mg/dL 10/26/2024 1:38 AM EDT [facility] Blood, Arterial 10/26/2024 1 2:39 AM EDT 10/26/2024 1:38 AM EDT us Semaj Mcnair III, MD POINT OF CARE TEST ORDERABLES Final Result Performing Organization Address [facility] de Phone Number [address] * (ABNORMAL) POC Ionized Calcium (10/26/2024 12:39 AM EDT) Pathologist [facility] POC Ionized Calcium 4.30(L) 4.50 - 5.30 mg/dL 10/26/2024 1:38 AM EDT [facility] Blood, Arterial 10/26/2024 1 2:39 AM EDT 10/26/2024 1:38 AM EDT us Semaj Mcnair III, MD POINT OF CARE TEST ORDERABLES Final Result Performing Organization Address [facility] Co de Phone Number [facility] [address] [place] [address]. [address] * (ABNORMAL) POC Potassium (10/26/2024 12:39 AM EDT) POC Potassium 2.4(LL) 3.5 - 5.3 mmol/L 10/26/2024 1:38 AM EDT [facility] Blood, Arterial 10/26/2024 1 2:39 AM EDT 10/26/2024 1:38 AM EDT Semaj Mcnair III, MD POINT OF CARE TEST ORDERABLES Final Result Performing Organization Address [facility] Co de Phone Number [facility] [address] [facility] * POC Sodium (10/26/2024 12:39 AM EDT) POC Sodium 136 136 - 146 mmol/L 10/26/2024 1:38 AM EDT [facility] Blood, Arterial 10/26/2024 1 2:39 AM EDT 10/26/2024 1:38 AM EDT Semaj Mcnair III, MD POINT OF CARE TEST ORDERABLES Final Result Performing Organization Address [facility] Co de Phone Number [facility] [address] [place] [address]. [address] * (ABNORMAL) POC TCO2 (10/26/2024 12:39 AM EDT) POC TCO2, Arterial 21(L) 23 - 27 mmol/L 10/26/2024 1:38 AM EDT [facility] Blood, Arterial 10/26/2024 1 2:39 AM EDT 10/26/2024 1:38 AM EDT us Semaj Mcnair III, MD POINT OF CARE TEST ORDERABLES Final Result Performing Organization Address [facility] Co de Phone Number [facility] [address] [facility] * POC O2 SAT (10/26/2024 12:39 AM EDT) POC O2 Saturation, Arterial 98 95 - 98 % 10/26/2024 1:38 AM EDT [facility] Blood, Arterial 10/26/2024 1 2:39 AM EDT 10/26/2024 1:38 AM EDT us Semaj Mcnair III, MD POINT OF CARE TEST ORDERABLES Final Result Performing Organization Address [facility] Co de Phone Number [facility] [address] [place] [address]. [address] * (ABNORMAL) POC Base Excess (10/26/2024 12:39 AM EDT) POC Base Excess, Arterial -7(L) -2 - 3 mmol/L 10/26/2024 1:38 AM EDT [facility] Blood, Arterial 10/26/2024 1 2:39 AM EDT 10/26/2024 1:38 AM EDT us Semaj Mcnair III, MD POINT OF CARE TEST ORDERABLES Final Result Performing Organization Address [facility] Co de Phone Number [facility] [address] [place] [address]. [address] * (ABNORMAL) POC HCO3 (10/26/2024 12:39 AM EDT) POC HCO3, Arterial 20(L) 22 - 26 mmol/L 10/26/2024 1:38 AM EDT [facility] Blood, Arterial 10/26/2024 1 2:39 AM EDT 10/26/2024 1:38 AM EDT us Semaj Mcnair III, MD POINT OF CARE TEST ORDERABLES Final Result Performing Organization Address [facility] Co de Phone Number [facility] [address] * (ABNORMAL) POC PO2 (10/26/2024 12:39 AM EDT) POC pO2, Arterial 117(H) 80 - 100 mm Hg 10/26/2024 1:38 AM EDT [facility] Blood, Arterial 10/26/2024 1 2:39 AM EDT 10/26/2024 1:38 AM EDT Semaj Mcnair III, MD POINT OF CARE TEST ORDERABLES Final Result Performing Organization Address [facility] Co de Phone Number [facility] [address] * (ABNORMAL) POC PCO2 (10/26/2024 12:39 AM EDT) POC pCO2, Arterial 46(H) 35 - 45 mm Hg 10/26/2024 1:38 AM EDT [facility] Blood, Arterial 10/26/2024 1 2:39 AM EDT 10/26/2024 1:38 AM EDT Semaj Mcnair III, MD POINT OF CARE TEST ORDERABLES Final Result Performing Organization Address [facility] Co de Phone Number [facility] [address] [facility]. [address] * (ABNORMAL) POC pH (10/26/2024 12:39 AM EDT) POC pH, Arterial 7.24(L) 7.35 - 7.45 10/26/2024 1:38 AM EDT [facility] Blood, Arterial 10/26/2024 1 2:39 AM EDT 10/26/2024 1:38 AM EDT Semaj Mcnair III, MD POINT OF CARE TEST ORDERABLES Final Result Performing Organization Address [facility] Co de Phone Number [facility] [address] [facility]. [address] * Transfuse Platelets (10/26/2024 12:37 AM [...] EDT) Gram Stain Result Cytospin Results: [facility] Gram Stain Result Polymorphonuclear Leukocytes Seen; [facility] Gram Stain Result No Organisms Seen; [facility] Culture Result No Growth After 3 Days [facility] Surgical Swab ABDOMEN / Unknown 12:03 AM EDT Comment:2.) Ascites Anaerobhic culture Fungus culture Routine culture plus stain Narrative [facility] - 10/28/2024 9:38 PM EDT 2.) Ascites Anaerobhic culture Fungus culture Routine culture plus stain 2.) Ascites Semaj Mcnair III, MD MICROBIOLOGY - [facility] ORDERABLES Final Result [facility] [address] [place] [address], [facility] * Surgical Pathology Exam (10/26/2024 12:00 AM EDT) 10/26/2024 10/27/2024 Narrative [facility] - 10/26/2024 12:00 AM EDT CASE: [id number] PATIENT: BLAIR GILBERT Clinical History: Liver - kidney transplant Pre-Operative Diagnosis: Alcoholic cirrhosis of liver Post-Operative Diagnosis: Alcoholic cirrhosis of liver Specimen(s) Submitted: A. [place] liver CPT Code(s): 13323 X 1; 90202 X 5 Additional Information: FINAL DIAGNOSIS: A. 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 - Negative for neoplasm. - Increased hepatocellular iron deposition (3+; Modified Scheuer). Gall bladder: -Intramucosal and submucosal vascular congestion and hemorrhage. - Negative for dysplasia or malignancy. Gross Description: Received in formalin, labeled Blair Gilbert and [place] liver , is a 2338-gram, hepatectomy specimen [...] discrete masses or other lesions are identified. Chairman & Ceo sections are submitted in cassettes [id number] as follows: A1: Hilar margins, en face. [...] Pathologist signing this report is located at [facility], [address] [place] [address], [place], [place], [facility], , CLIA ID: [id number] us Semaj Mcnair III, MD PATHOLOGY/CYTOLOGY ORDERABLES Final Result Performing Organization Address [facility]/State/ZIP Co de Phone Number [facility] * Transfuse [...] - 1.4 10/27/2024 6:51 AM EDT [facility] Comment: Test results may [...] Result Performing Organization Address [facility]/ZIP Co de Phone Number [facility] [address] [place] [address] * POC Sample Type (10/25/2024 11:40 PM EDT) Pathologist [facility] POC Sample Type Arterial 10/25/2024 11:57 PM EDT [facility] Blood, Arterial 10/25/2024 1 1:40 PM EDT 10/25/2024 11:57 PM EDT Semaj Mcnair III, MD POINT OF CARE TEST ORDERABLES Final Result [facility] [address] [facility] * POC Anion Gap (10/25/2024 11:40 PM EDT) [facility] POC Anion Gap, Arterial 13 3 - 16 mmol/L 10/25/2024 11:57 PM EDT [facility] Blood, Arterial 10/25/2024 1 1:40 PM EDT 10/25/2024 11:57 PM EDT Semaj Mcnair III, MD POINT OF CARE TEST ORDERABLES Final Result Performing Organization Address [facility] Co de Phone Number [facility] [address] [place] [address]. [address] * POC Chloride (10/25/2024 11:40 PM EDT) [facility] POC Chloride 102 98 - 110 mmol/L 10/25/2024 11:57 PM EDT [facility] Blood, Arterial 10/25/2024 1 1:40 PM EDT 10/25/2024 11:57 PM EDT us Semaj Mcnair III, MD POINT OF CARE TEST ORDERABLES Final Result Performing Organization Address [facility] Co de Phone Number [facility] [address] [facility] * (ABNORMAL) POC Hemoglobin (10/25/2024 11:40 PM EDT) Pathologist [facility] POC Hemoglobin 6.6(L) 14.0 - 18.0 g/dL 10/25/2024 11:57 PM EDT [facility] Blood, Arterial 10/25/2024 1 1:40 PM EDT 10/25/2024 11:57 PM EDT us Semaj Mcnair III, MD POINT OF CARE TEST ORDERABLES Final Result Performing Organization Address [facility]/ZIP Co de Phone Number [facility] [address] [facility] [facility] [address] * (ABNORMAL) POC hematocrit (10/25/2024 11:40 PM EDT) POC Hematocrit 19.0(L) 40 - 52 % 10/25/2024 11:57 PM EDT [facility] Blood, Arterial 10/25/2024 1 1:40 PM EDT 10/25/2024 11:57 PM EDT us Semaj Mcnair III, MD POINT OF CARE TEST ORDERABLES Final Result Performing Organization Address [facility] Co de Phone Number [facility] [address] [facility]. [address] * POC Lactate (10/25/2024 11:40 PM EDT) POC Lactate 1.36 0.50 - 2.20 mmol/L 10/25/2024 11:57 PM EDT [facility] Blood, Arterial 10/25/2024 1 1:40 PM EDT 10/25/2024 11:57 PM EDT us Semaj Mcnair III, MD POINT OF CARE TEST ORDERABLES Final Result Performing Organization Address [facility] Co de Phone Number [facility] [address] [facility]. [address] * (ABNORMAL) POC Glucose (10/25/2024 11:40 PM EDT) POC Glucose, Arterial 101(H) 70 - 100 mg/dL 10/25/2024 11:57 PM EDT [facility] Blood, Arterial 10/25/2024 1 1:40 PM EDT 10/25/2024 11:57 PM EDT us Semaj Mcnair III, MD POINT OF CARE TEST ORDERABLES Final Result [facility] [address] [place] [address]. [address] * POC Ionized Calcium (10/25/2024 11:40 PM EDT) POC Ionized Calcium 4.50 4.50 - 5.30 mg/dL 10/25/2024 11:57 PM EDT [facility] Blood, Arterial 10/25/2024 1 1:40 PM EDT 10/25/2024 11:57 PM EDT Semaj Mcnair III, MD POINT OF CARE TEST ORDERABLES Final Result Performing Organization Address [facility] Co de Phone Number [facility] [address] [place] [address]. [address] * (ABNORMAL) POC Potassium (10/25/2024 11:40 PM EDT) Pathologist [facility] POC Potassium 1.9(LL) 3.5 - 5.3 mmol/L 10/25/2024 11:57 PM EDT [facility] Blood, Arterial 10/25/2024 1 1:40 PM EDT 10/25/2024 11:57 PM EDT us Semaj Mcnair III, MD POINT OF CARE TEST ORDERABLES Final Result Performing Organization Address [facility]/ZIP Co de Phone Number [facility] [address] [place] [address]. [address] * (ABNORMAL) POC Sodium (10/25/2024 11:40 PM EDT) POC Sodium 135(L) 136 - 146 mmol/L 10/25/2024 11:57 PM EDT [facility] Blood, Arterial 10/25/2024 1 1:40 PM EDT 10/25/2024 11:57 PM EDT us Semaj Mcnair III, MD POINT OF CARE TEST ORDERABLES Final Result [facility] [address] * (ABNORMAL) POC TCO2 (10/25/2024 11:40 PM EDT) POC TCO2, Arterial 21(L) 23 - 27 mmol/L 10/25/2024 11:57 PM EDT [facility] Blood, Arterial 10/25/2024 1 1:40 PM EDT 10/25/2024 11:57 PM EDT us Semaj Mcnair III, MD POINT OF CARE TEST ORDERABLES Final Result Performing Organization Address [facility]/ZIP Co de Phone Number [facility] [address] [facility]. [address] * POC O2 SAT (10/25/2024 11:40 PM EDT) POC O2 Saturation, Arterial 98 95 - 98 % 10/25/2024 11:57 PM EDT [facility] Blood, Arterial 10/25/2024 1 1:40 PM EDT 10/25/2024 11:57 PM EDT Semaj Mcnair III, MD POINT OF CARE TEST ORDERABLES Final Result Performing Organization Address [facility]/ZIP Co de Phone Number [facility] [address] [facility]. [address] * (ABNORMAL) POC Base Excess (10/25/2024 11:40 PM EDT) POC Base Excess, Arterial -6(L) -2 - 3 mmol/L 10/25/2024 11:57 PM EDT [facility] Blood, Arterial 10/25/2024 1 1:40 PM EDT 10/25/2024 11:57 PM EDT us Semaj Mcnair III, MD POINT OF CARE TEST ORDERABLES Final Result [facility] [address] [facility]. [address] * (ABNORMAL) POC HCO3 (10/25/2024 11:40 PM EDT) POC HCO3, Arterial 20(L) 22 - 26 mmol/L 10/25/2024 11:57 PM EDT [facility] Blood, Arterial 10/25/2024 1 1:40 PM EDT 10/25/2024 11:57 PM EDT us Semaj Mcnair III, MD POINT OF CARE TEST ORDERABLES Final Result Performing Organization Address [facility] Co de Phone Number [facility] [address] [facility] [address] * (ABNORMAL) POC PO2 (10/25/2024 11:40 PM EDT) POC pO2, Arterial 107(H) 80 - 100 mm Hg 10/25/2024 11:57 PM EDT [facility] Blood, Arterial 10/25/2024 1 1:40 PM EDT 10/25/2024 11:57 PM EDT us Semaj Mcnair III, MD POINT OF CARE TEST ORDERABLES Final Result Performing Organization Address [facility]/ZIP Co de Phone Number [facility] [address] [facility] * POC PCO2 (10/25/2024 11:40 PM EDT) POC pCO2, Arterial 41 35 - 45 mm Hg 10/25/2024 11:57 PM EDT [facility] Blood, Arterial 10/25/2024 1 1:40 PM EDT 10/25/2024 11:57 PM EDT us Semaj Mcnair III, MD POINT OF CARE TEST ORDERABLES Final Result Performing Organization Address [facility] Co de Phone Number [facility] [address] * (ABNORMAL) POC pH (10/25/2024 11:40 PM EDT) POC pH, Arterial 7.29(L) 7.35 - 7.45 10/25/2024 11:57 PM EDT [facility] Blood, Arterial 10/25/2024 1 1:40 PM EDT 10/25/2024 11:57 PM EDT us Semaj Mcnair III, MD POINT OF CARE TEST ORDERABLES Final Result Performing Organization Address [facility] Co de Phone Number [facility] [address] * Urine culture (10/25/2024 11:08 PM EDT) Culture Result <1,000 cfu/mL [facility] Culture Result Skin/Urogeni rony Mckayla. No Further Workup. [facility] Newly Placed Berkowitz Urine URINE SPECIMEN / Unknown 10/25/2024 11:08 PM EDT Comment:urine culture Narrative [facility] - 10/28/2024 9:59 AM EDT urine culture urine culture us Semaj Mcnair III, MD MICROBIOLOGY - GENE RAL ORDERABLES Final Result Performing Organization Address [facility] Co de Phone Number [facility] [address] * X-ray Portable Chest (10/25/2024 10:19 [...] 2.2 mmol/L 10/25/2024 10:39 PM EDT [facility] Plasma 10/25/2024 10:1 7 PM EDT 10/25/2024 10:17 PM EDT Ben Blake MD LAB BLOOD ORDERABLES Final Re sult [facility] [address] [facility]. [address] * (ABNORMAL) Ferritin (10/25/2024 10:17 PM EDT) Ferritin 623.2(H) 23.9 - 336.2 ng/mL 10/25/2024 11:02 PM EDT [facility] Serum 10/25/2024 10:1 7 PM EDT 10/25/2024 10:17 PM EDT Result [facility] Leandra Og MD LAB BLOOD ORDERABLES F inal Result Performing Organization Address [facility]/ZIP Co de Phone Number [facility] [address] [facility]. [address] * Iron Studies (Iron + TIBC) (10/25/2024 10:17 PM EDT) Iron 128 50 - 212 ug/dL 10/25/2024 10:44 PM EDT [facility] % Iron Saturation SEE COMMENT 15.0 - 55.0 % 10/25/2024 10:44 PM EDT [facility] Comment:Unable to calculate result because contributing result outside reportable range.. TIBC SEE COMMENT 261 - 462 ug/dL 10/25/2024 10:44 PM EDT [facility] Comment:Unable to calculate result because contributing result outside reportable range.. Serum 10/25/2024 10:1 7 PM EDT 10/25/2024 10:17 PM EDT Leandra Og MD LAB BLOOD ORDERABLES F inal Result [facility] [address] * PTH (10/25/2024 10:17 PM EDT) PTH 36.0 12.0 - 88.0 pg/mL 10/25/2024 11:01 PM EDT [facility] Serum 10/25/2024 10:1 7 PM EDT 10/25/2024 10:17 PM EDT Leandra Og MD LAB BLOOD ORDERABLES F inal Result [facility] [address] * HIV 1+2 Antibody/Antigen with Reflex (10/25/2024 10:17 PM EDT) HIV 1+2 AB/AGN Nonreactive Nonreactive 10/25/2024 11:03 PM EDT [facility] Serum 10/25/2024 10:1 7 PM EDT 10/25/2024 10:16 PM EDT Narrative [facility] - 10/25/2024 11:03 PM EDT \HIVRNR Leandra Og MD LAB BLOOD ORDERABLES F inal Result [facility] [address] * Hepatitis B Core Antibody (10/25/2024 10:17 PM EDT) Hep B Core Total Ab Nonreactive Nonreactive 10/25/2024 11:07 PM EDT [facility] Comment:Health Department no tified in accordance with reportable infectious disease guidelines. Serum 10/25/2024 10:1 7 PM EDT 10/25/2024 10:17 PM EDT Narrative [facility] - 10/25/2024 11:07 PM EDT A nonreactive final interpretation indicates that anti-HBc antibodies were not detected in the sample; it is possible that the individual is not infected with HBV. us Leandra Og MD LAB BLOOD ORDERABLES F inal Result Performing Organization Address [facility] Co de Phone Number [facility] [address] [facility]. [address] * Hepatitis C Antibody (10/25/2024 10:17 PM EDT) Pathologist [facility] HCV Ab Nonreactive Nonreactive 10/25/2024 11:16 PM EDT [facility] Comment:Health Department no tified in accordance with reportable infectious disease guidelines. Serum 10/25/2024 10:1 7 PM EDT 10/25/2024 10:17 PM EDT Narrative [facility] - 10/25/2024 11:16 PM EDT Antibodies to HCV not detected; does not exclude the possibility of exposure to HCV. us Leandra Og MD LAB BLOOD ORDERABLES F inal Result Performing Organization Address [facility] Co de Phone Number [facility] [address] [facility] * (ABNORMAL) Hepatitis B Surface Antibody, Quantitati (10/25/2024 10:17 PM EDT) [facility] HBSAB NUMBER 10.70(H) 0.00 - 9.99 mIU/mL 10/25/2024 11:52 PM EDT [facility] Hep B S Ab Equivocal (A) Nonreactive 10/25/2024 11:52 PM EDT [facility] Serum 10/25/2024 10:1 7 PM EDT 10/25/2024 10:17 PM EDT us Leandra Og MD LAB BLOOD ORDERABLES F inal Result Performing Organization Address [facility] Co de Phone Number [facility] [address] [facility] * Hepatitis B surface antigen (10/25/2024 10:17 PM EDT) Hep B Surface Ag Nonreactive Nonreactive 10/25/2024 11:12 PM EDT [facility] Comment:Health Department no tified in accordance with reportable infectious disease guidelines. Serum 10/25/2024 10:1 7 PM EDT 10/25/2024 10:17 PM EDT Narrative [facility] - 10/25/2024 11:12 PM EDT Specimen is considered negative for HBsAg. Leandra Og MD LAB BLOOD ORDERABLES F inal Result Performing Organization Address [facility]/ZIP Co de Phone Number [facility] [address] [facility] * Hepatitis A Antibody Total (10/25/2024 10:17 PM EDT) Anti-HAV Total (IgG + IgM) Nonreactive 10/25/2024 11:13 PM EDT [facility] Serum 10/25/2024 10:1 7 PM EDT 10/25/2024 10:17 PM EDT Narrative [facility] - 10/25/2024 11:13 PM EDT HAV antibodies not detected Leandra Og MD LAB BLOOD ORDERABLES F inal Result Performing Organization Address [facility] Co de Phone Number [facility] [address] [facility] * (ABNORMAL) Hepatic Function Panel (10/25/2024 10:17 PM EDT) Total Bilirubin 9.1(H) 0.0 - 1.5 mg/dL 10/25/2024 10:47 PM EDT [facility] Bilirubin, Direct 4.58(H) 0.00 - 0.40 mg/dL 10/25/2024 10:47 PM EDT [facility] AST 51(H) 13 - 39 U/L 10/25/2024 10:47 PM EDT [facility] ALT 23 7 - 52 U/L 10/25/2024 10:47 PM EDT [facility] Alkaline Phosphatase 144(H) 36 - 125 U/L 10/25/2024 10:47 PM EDT [facility] Total Protein 5.5(L) 6.4 - 8.9 g/dL 10/25/2024 10:47 PM EDT [facility] Albumin 3.5 3.5 - 5.7 g/dL 10/25/2024 10:47 PM EDT [facility] Bilirubin, Indirect 4.52(H) 0.00 - 1.10 mg/dL 10/25/2024 10:47 PM EDT [facility] Plasma 10/25/2024 10:1 7 PM EDT 10/25/2024 10:17 PM EDT us Leandra Og MD LAB BLOOD ORDERABLES F inal Result [facility] [address] [place] [address], [facility] * (ABNORMAL) Renal Function Panel w/EGFR (10/25/2024 10:17 PM EDT) Sodium 137 133 - 146 mmol/L 10/25/2024 10:47 PM EDT [facility] Potassium 2.1(LL) 3.5 - 5.3 mmol/L 10/25/2024 10:47 PM EDT [facility] Comment:Critical Result K:2. 1 Called to and read back by: ALICIA CARCAMO RN at: 10/25/2024 22:47:45 by:NANCY Chloride 100 98 - 110 mmol/L 10/25/2024 10:47 PM EDT [facility] CO2 20(L) 21 - 33 mmol/L 10/25/2024 10:47 PM EDT [facility] Anion Gap 17(H) 3 - 16 mmol/L 10/25/2024 10:47 PM EDT [facility] BUN 74(H) 7 - 25 mg/dL 10/25/2024 10:47 PM EDT [facility] Creatinine 3.87(H) 0.60 - 1.30 mg/dL 10/25/2024 10:47 PM EDT [facility] Glucose 114(H) 70 - 100 mg/dL 10/25/2024 10:47 PM EDT [facility] Calcium 9.3 8.6 - 10.3 mg/dL 10/25/2024 10:47 PM EDT [facility] Phosphorus 5.9(H) 2.1 - 4.7 mg/dL 10/25/2024 10:47 PM EDT [facility] Albumin 3.5 3.5 - 5.7 g/dL 10/25/2024 10:47 PM EDT [facility] Osmolality, Calculated 307(H) 278 - 305 mOsm/kg 10/25/2024 10:47 PM EDT [facility] EGFR 19 10/25/2024 10:47 PM EDT [facility] Comment:As of [...] LAB BLOOD ORDERABLES F inal Result [facility] [address] [facility] [place] [address], [facility] * (ABNORMAL) APTT, NO ANTICOAGULANT (10/25/2024 10:17 PM EDT) aPTT 41.7(H) 25.5 - 35.0 seconds 10/25/2024 10:36 PM EDT [facility] Plasma 10/25/2024 10:1 7 PM EDT 10/25/2024 10:17 PM EDT us Leandra Og MD LAB BLOOD ORDERABLES F inal Result Performing Organization Address [facility]/ZIP Co de Phone Number [facility] [address] * (ABNORMAL) Protime-INR (10/25/2024 10:17 PM EDT) Protime 21.7(H) 12.1 - 15.1 seconds 10/25/2024 10:35 PM EDT [facility] INR 1.8(H) 0.9 - 1.1 10/25/2024 10:35 PM EDT [facility] Comment: RECOMMENDED THERAPEUTIC RANGES USING INR : Stable oral anticoagulant therapy: 2.0 - 3.0 Mechanical prosthetic heart valve: 2.5 - 3.5 Recurrent acute myocardial infarction: 2.5 - 3.5 Plasma 10/25/2024 10:1 7 PM EDT 10/25/2024 10:17 PM EDT us Leandra Og MD LAB BLOOD ORDERABLES F inal Result Performing Organization Address [facility] Co de Phone Number [facility] [address] [facility] * (ABNORMAL) Differential (10/25/2024 10:17 PM EDT) Differential Comments See Note 10/25/2024 10:54 PM EDT [facility] Comment: _Platelets Appear Decreased _Platelet Morphology Normal Scan Result PERFORMED 10/25/2024 10:54 PM EDT [facility] Neutrophils Relative 79.8 40.0 - 80.0 % 10/25/2024 10:54 PM EDT [facility] Lymphocytes Relative 9.6(L) 15.0 - 45.0 % 10/25/2024 10:54 PM EDT [facility] Monocytes Relative 8.9 0.0 - 12.0 % 10/25/2024 10:54 PM EDT [facility] Eosinophils Relative 1.3 0.0 - 8.0 % 10/25/2024 10:54 PM EDT [facility] Basophils Relative 0.4 0.0 - 1.0 % 10/25/2024 10:54 PM EDT [facility] nRBC 0 0 - 0 /100 WBC 10/25/2024 10:54 PM EDT [facility] Neutrophils Absolute 4,948 1,520 - 8,640 /uL 10/25/2024 10:54 PM EDT [facility] Lymphocytes Absolute 595 570 - 4,860 /uL 10/25/2024 10:54 PM EDT [facility] Monocytes Absolute 552 0 - 1,296 /uL 10/25/2024 10:54 PM EDT [facility] Eosinophils Absolute 81 0 - 864 /uL 10/25/2024 10:54 PM EDT [facility] Basophils Absolute 25 0 - 108 /uL 10/25/2024 10:54 PM EDT [facility] PLT Morphology Platelet morphology appears normal 10/25/2024 10:54 PM EDT [facility] Whole Blood 10/25/2024 10:1 7 PM EDT 10/25/2024 10:17 PM EDT us Leandra Og MD LAB BLOOD ORDERABLES F inal Result [facility] [address] [address], [facility] * (ABNORMAL) CBC (10/25/2024 10:17 PM EDT) WBC 6.2 3.8 - 10.8 10E3/uL 10/25/2024 10:54 PM EDT [facility] RBC 2.40(L) 4.20 - 5.80 10E6/uL 10/25/2024 10:54 PM EDT [facility] Hemoglobin 8.3(L) 13.2 - 17.1 g/dL 10/25/2024 10:54 PM EDT [facility] Hematocrit 23.7(L) 38.5 - 50.0 % 10/25/2024 10:54 PM EDT [facility] MCV 98.9 80.0 - 100.0 fL 10/25/2024 10:54 PM EDT [facility] MCH 34.6(H) 27.0 - 33.0 pg 10/25/2024 10:54 PM EDT [facility] MCHC 35.0 32.0 - 36.0 g/dL 10/25/2024 10:54 PM EDT [facility] RDW 17.8(H) 11.0 - 15.0 % 10/25/2024 10:54 PM EDT [facility] Platelets 56(L) 140 - 400 10E3/uL 10/25/2024 10:54 PM EDT [facility] Comment: Specimen checked for clots. None detected. Slide Reviewed for PLT Clumps. None Seen. Platelet Estimate Decreased 10/25/2024 10:54 PM EDT [facility] MPV 8.1 7.5 - 11.5 fL 10/25/2024 10:54 PM EDT [facility] Whole Blood 10/25/2024 10:1 7 PM EDT 10/25/2024 10:17 PM EDT Narrative [facility] - 10/25/2024 10:54 PM EDT Peripheral blood smear was scanned per review criteria approved by the laboratory medical billing assistant. us Leandra Og MD LAB BLOOD ORDERABLES F inal Result [facility] [address] [place] [address], [facility] * Donor Specific Antibody (DSA) (10/25/2024 10:00 PM EDT) AntiDonor Antibodies The request and specimen(s) for this test have been received and transported to the [facility] [place] at [address] [place] [address]. The [facility] [place] will report results directly to the client. 10/25/2024 10:20 PM EDT [facility] Comment:Testing performed by [facility], [facility], [address] [place] [address]. The [facility] report has been forwarded to the appropriate ordering location. Please refer to this report for patient results. Serum 10/25/2024 10:0 0 PM EDT 10/25/2024 10:20 PM EDT Leandra Og MD LAB BLOOD ORDERABLES F inal Result [facility] [address] [place] [address], [facility] * (ABNORMAL) Venous Blood Gas, Line/Syringe (10/25/2024 10:00 PM EDT) PH-Line Draw 7.38 7.32 - 7.42 10/25/2024 10:08 PM EDT [facility] PCO2-Line Draw 33(L) 41 - 51 mm Hg 10/25/2024 10:08 PM EDT [facility] PO2-Line Draw 33 25 - 40 mm Hg 10/25/2024 10:08 PM EDT [facility] HCO3-Line Draw 20(L) 24 - 28 mmol/L 10/25/2024 10:08 PM EDT [facility] CO2 Content-Line Draw 21(L) 25 - 29 mmol/L 10/25/2024 10:08 PM EDT [facility] Base Excess-Line Draw -5.0(L) -2.0 - 3.0 mmol/L 10/25/2024 10:08 PM EDT [facility] %HBO2-Line Draw 53.8 40.0 - 70.0 % 10/25/2024 10:08 PM EDT [facility] Carboxyhgb-Ludivina e Draw 1.9 % 10/25/2024 10:08 PM EDT [facility] Comment: CARBOXYHEMOGLOBIN (CO) REFERENCE RANGES: Non-Smokers: <2 % Smokers: <8 % TOXIC: >20 % Methemoglobin- Line Draw 0.2 0.0 - 1.5 % 10/25/2024 10:08 PM EDT [facility] Reduced Hemoglobin-Ludivina e Draw 44.1(H) 0.0 - 5.0 % 10/25/2024 10:08 PM EDT [facility] Venous, Line Draw 10/25/2024 10:00 PM EDT 10/25/2024 10:04 PM EDT Leandra Og MD LAB BLOOD ORDERABLES F inal Result [facility] [address] * (ABNORMAL) POC Glucose Monitoring Device (10/25/2024 9:56 PM EDT) [facility] POC Glucose Monitoring Device 103(H) 70 - 100 mg/dL 10/25/2024 9:58 PM EDT [facility] Blood 10/25/2024 9:56 PM EDT 10/25/2024 9:57 PM EDT Semaj Mcnair III, MD POINT OF CARE TEST ORDERABLES Final Result Performing Organization Address [facility] de Phone Number [facility] [address] * ECG 12 lead (MUSE) (10/25/2024 9:34 PM EDT) 10/25/2024 9:34 PM EDT Narrative MUSE - 10/27/2024 10:08 AM EDT Ventricular Rate: 97 BPM Atrial Rate: 86 BPM QRS Duration: 106 ms QT: 532 ms QTc: 675 ms P [place]: 38 degrees R [place]: -29 degrees T [place]: 32 degrees Diagnosis Line: Critical Test Result: Long QTc , AV Block ^ SINUS RHYTHM WITH PREMATURE VENTRICULAR COMPLEXES ^ PROLONGED QT ^ NONSPECIFIC ST AND T WAVE CHANGES ^ ABNORMAL ECG ^ ^ Confirmed by MD HA, [facility] ([id number]) on 10/27/2024 10:08:26 AM us Leandra Og MD ECG ORDERABLES Final Result Performing Organization Address [facility] Co de Phone Number MUSE * Hepatitis C RNA, Quant Reflex to Genotyp (10/25/2024 8:18 PM EDT) [facility] International Units Not Detected IU/mL 10/27/2024 [...] 10 IU/mL 10/27/2024 11:03 AM EDT [facility] Comment:HCV RNA not detected . Plasma 10/25/2024 8:18 PM EDT 10/25/2024 10:27 PM EDT us Leandra Og MD LAB BLOOD ORDERABLES F inal Result [facility] [address] [place] [address], [facility] * Urinalysis w/Rfl to Microscopic (10/25/2024 8:18 PM EDT) Color, UA Yellow Yellow,Straw 10/25/2024 10:38 PM EDT [facility] Clarity, UA Clear Clear 10/25/2024 10:38 PM EDT [facility] Specific [place], UA 1.010 1.005 - 1.035 10/25/2024 10:38 PM EDT [facility] pH, UA 6.0 5.0 - 8.0 10/25/2024 10:38 PM EDT [facility] Protein, UA Negative Negative mg/dL 10/25/2024 10:38 PM EDT [facility] Glucose, UA Negative Negative mg/dL 10/25/2024 10:38 PM EDT [facility] Ketones, UA Negative Negative mg/dL 10/25/2024 10:38 PM EDT [facility] Bilirubin, UA Negative Negative 10/25/2024 10:38 PM EDT [facility] Blood, UA Negative Negative 10/25/2024 10:38 PM EDT [facility] Nitrite, UA Negative Negative 10/25/2024 10:38 PM EDT [facility] Urobilinogen, UA <2.0 0.2 - 1.9 mg/dL 10/25/2024 10:38 PM EDT [facility] Leukocyte Esterase, UA Negative Negative 10/25/2024 10:38 PM EDT [facility] Urine 10/25/2024 8:18 PM EDT 10/25/2024 10:35 PM EDT [facility] - 10/25/2024 10:38 PM EDT Microscopic testing is not performed when the dipstick is negative for blood, leukocyte, protein and nitrite. Leandra Og MD URINE ORDERABLES Final Result [facility] [id number] [facility]. [address] * Toxoplasma gondii antibody, IgG (10/25/2024 8:18 PM EDT) Pathologist [facility] [place] Toxoplasma Gondii IgG <3.0 0.0 - 7.1 IU/mL 10/27/2024 7:55 AM EDT [facility] Comment: Negative <7.2 Equivocal 7.2 - 8.7 Positive >8.7 Serum 10/25/2024 8:18 PM EDT 10/27/2024 8:06 AM EDT [facility] - 10/27/2024 8:06 AM EDT PERFORMED AT: [facility] [address] [id number] MARKET MAKER: Bassam Khalil, PhD PHONE: [phone] Leandra Og MD LAB BLOOD ORDERABLES F inal Result [facility] [address] [facility]. [address] * Antibody Screen (10/25/2024 7:46 PM EDT) Pathologist [facility] [place] Antibody Screen Negative 10/25/2024 10:41 PM EDT [facility] Blood 10/25/2024 7:46 PM EDT 10/25/2024 9:54 PM EDT [facility] - 10/25/2024 10:44 PM EDT Testing performed by [facility] Transfusion Service Ben Blake MD BLOOD BANK TEST ORDERABLES Fi nal Result [facility] [address] [facility]. [address] * ABO/Rh (10/25/2024 7:46 PM EDT) ABO Grouping O 10/25/2024 10:23 PM EDT [facility] Rh Type Positive 10/25/2024 10:23 PM EDT [facility] Blood 10/25/2024 7:46 PM EDT 10/25/2024 9:54 PM EDT us Ben Blake MD BLOOD BANK TEST ORDERABLES Fi nal Result [facility] [address] * (ABNORMAL) TEG-Standard Global Hemostasis (Rapid TEG with Heparin Effect, Contains a Baseline TEG) (10/25/2024 7:46 PM EDT) Citrated Kaolin Reaction Time (TEGHEPARINASE) 8.4 4.6 - 9.1 minutes 10/25/2024 10:49 PM EDT [facility] Citrated Rapid Teg Maximum Amplitude (TEGHEPARINASE) <40.0(L) 52.0 - 70.0 mm 10/25/2024 10:49 PM EDT [facility] Citrated Functional Fibrinogen Maximum Amplitude (TEGHEPARINASE) 6.7(L) 15.0 - 32.0 mm 10/25/2024 10:49 PM EDT [facility] Citrated Kaolin W/Heparinase Reaction Time (TEGHEPARINASE) 8.1 4.3 - 8.3 minutes 10/25/2024 10:49 PM EDT [facility] Citrated Kaolin K-Time (TEGHEPARINASE) 2.5(A) 0.8 - 2.1 minutes 10/25/2024 10:49 PM EDT [facility] Citrated Kaolin Angle (TEGHEPARINASE) 65.7(A) 63.0 - 78.0 degrees 10/25/2024 10:49 PM EDT [facility] Citrated Kaolin Maximum Amplitude (TEGHEPARINASE) <40.0(L) 52.0 - 69.0 mm 10/25/2024 10:49 PM EDT [facility] Citrated Functional Fibrinogen- Fibrinogen Level (TEGHEPARINASE) 159.5(L) 278.0 - 581.0 mg/dL 10/25/2024 10:49 PM EDT [facility] Whole Blood (Citrate) 10/25/2024 7:46 PM EDT 10/25/2024 10:15 PM EDT us Ben Blake MD LAB BLOOD ORDERABLES Final Re sult [facility] [address] [place] [address], [facility] documented in this encounter Visit Diagnoses Diagnosis [...] RN)[id number] (New Bag - Provider: Paulette Flannery, RN)1155 (New Bag - Provider: Paulette Flannery [...] Gale RN) 0614 (Given - Provider: Yvonne Glae, ЮЛИЯ)1345 (Given - Provider: Paulette Flannery RN)2119 [...] RN)212 (Given - Provider: Yvonne Gale, ЮЛИЯ) 1142 [...] documented as of this encounter Care Teams Ticket Manager Relationship Specialty Start Date End Date Enedina Mcguire NP [address] [place] [address] PCP - General Internal Medicine 10/05/24 documented as of this encounter
--- OUTSIDE RECORDS SUMMARY | 2024-10-27 02:34 | XMS_ITS | Encounter Summary ---
Author Organization [facility] Address [facility] [place] [address] Care Team Providers Care Medical Supply Technician Name Role Phone Enedina Mcguire NP Primary Care Provider [phone] Source Comments This information has been disclosed [...] release of HIV test results or diagnoses. [id number] Reason for Visit * Auth/Cert (Routine) Specialty Diagnoses / Procedures Referred By Shane t Referred To Contact Surgical Intensive Care Diagnoses Liver transplant recipient (CMS-HCC) cirrhosis and CKD Procedures LIVER-KIDNEY TRANSPLANT [facility] SICU [address] [place] [address] Phone: tel: Referral ID Status Reason Start Date Expiration Date Visits Re quested Visits Authorized [id number] 1 1 Encounter Details Date Type Department Care Team (Late st Contact Info) Description 10/27/2024 2:34 AM EDT Anesthesia Event [facility] PERIOP [address] [place] [address] Rocky Manning MD [address] [place] [phone] Con Gramajo MD [address] [place] [address] Anesthesia Record Procedure Summary Procedure Name Responsible [...] sodium chloride 0.9% 1 00 mL IVPB (Bvhn6Deh) 1 g cefTRIAXone (ROCEPHIN) 2 g in sodium chl oride 0.9 % 100 mL Pqhe6Cih 2 g electrolyte-r (pH 7.4)(NORMOSOL-R pH 7.4 [...] Sounds Confirmed 10/26/24 0622 by Martha Phillip, HYPERCIL CORE TRANSFORMER ASSEMBLER 10/27/24 1310 by Chinedu Almeida, HYPERCIL CORE TRANSFORMER ASSEMBLER Drain 10/27/24; 0636; Bulb ; Abdomen; Inferior, [...] the past 12 months has th e AIM, gas, oil, or water [employer] threatened to shut off services in your [...] Blake MD - 10/26/2024 8:01 PM EDT [facility] DEPARTMENT OF ANESTHESIOLOGY PRE-PROCEDURAL EVALUATION [...] dysrhythmias, angina, orthopnea. ECG reviewed. ROS comment: [facility] 10/14/24: IMPRESSIONS: - Patent coronary arteries without [...] is no recent study available for direct fyrv-yh-jmtn comparison. Stress echo 10/09/24: - Left ventricle: [...] at baseline or with provocation, shows no pjtwq-of-with atrial level shunt. - Pulmonary arteries: Systolic [...] Resource Strain: Low Risk (07/09/2024) Received from [facility] Overall Financial Resource Strain (CARDIA) [...] Physical Activity: Unknown (07/14/2024) Received from [facility] Exercise Vital Sign Days of Exercise per Week: Patient unable to answer Minutes of Exercise per Session: Not on file Stress: Patient Unable To Answer (07/14/2024) Received from [facility] [place] of Occupational Health - Occupational Stress Questionnaire Feeling of Stress : Patient unable to answer Social Connections: Patient Unable To Answer (07/14/2024) Received from [facility] Social Connection and Isolation Panel [...] at 9:00 PM naloxone (NARCAN) 4 mg/actuation [place] Apply 1 spray in one nostril if [...] Blood products not discussed. Plan discussed with MANAGER CT and attending. no trial extubation [1] Allergies Allergen Reactions Adhesive Itching and Rash Tegaderm adhesive on Ivs, pt states its tolerable Duloxetine Other (See Comments) Became Manic documented in this encounter Plan of Treatment Upcoming Encounters Date Type Department Care Team (Late st Contact Info) Description 12/05/2024 8:01 AM EDT Hospital Encounter [facility] ENDOSCOPY [address] [place] [phone] Chris Orosco MD [address] [place] [phone] 12/05/2024 8:01 AM EDT - 12/05/2024 8:31 AM EDT Surgery [facility] ENDOSCOPY [address] [place] [address] Chris Orosco MD [address] [place] [phone] EGD Scheduled Procedures Name Priority Associated Diagnoses Date/Ti me EGD Cirrhosis of liver with ascites, unspecified hepatic cirrhosis type (CMS-HCC) 12/05/2024 8:01 AM EDT documented as of this encounter Visit Diagnoses Diagnosis Cirrhosis of liver with ascites, unspecified hepatic cirrhosis type ([facility]) * Transfer of Care - Bryce No [...] 0659 10/27/24 07 - 10/28/24 0659 Shift [id number] 3499-7462 9629-1836 24 Hour Total 6473-4594 9369-7788 3612-0051 24 Hour Total INTAKE I.V.(mL/kg) 1450.8(11.8) 999.1(8.2) [...] 1 x 1 x 3 x Albumin 7889 732 5785 Volume (Transfuse Cryoprecipitate Transfusion Rate: Per dept [...] in sodium chloride 0.9 % 100 mL Ykbc4Ogg) 20 20 Volume (mL) (methylPREDNISolone sodium succinate (SOLU-medrol) 250 mg in sodium chloride 0.9 % 100 mL IVPB) 100 100 Volume (mL) (AMPicillin 1 g in sodium chloride 0.9% 100 mL IVPB (Cpqd8Elg)) 200.2 100 120 420.1 Volume (mL) (mycophenolate [...] 99.3 99.3 Shift Total(mL/kg) 3124.1(25.5) 4253.7(34.7) 6907(56.4) 08622.8(116.6) OUTPUT Urine(mL/kg/hr) 955(1) 505(0.5) 690(0.7) 2150(0.7) 360 360 Urine 315 315 360 360 Output (mL) (IUC (Berkowitz) Triple-lumen (3-Way) 18 Fr.) 955 618 241 9713 Emesis/NG output 250 600 850 Drainage Output (mL) (NG/OG Tube Orogastric) 250 600 850 Drains 1700 3059 579 5057 Output (mL) (Drain Bilary Abdomen Inferior;Right) 100 150 250 Output (mL) ([REMOVED] Drain 1 Abdomen Right;Superior) 800 129 044 4802 Output (mL) (Drain 2 Left;Superior) 800 540 39 3321 Blood 300 300 Est Blood Loss 300 [...] in sodium chloride 0.9% 100 mL IVPB (Zzim3Pch) 1 g, Intravenous, at 200 mL/hr, Every 6 hours scheduled (4 times per day), First dose on Sun10/26/24 at 0630, For 2 days, Dosage may need to be adjusted for renal dysfunction. Full dose is 1g IV q6h Use Dixk8Cae Adapter - Mix Thoroughly Before Administration New Bag 10/28/2024 1:58 AM EDT 1 g 200 mL/hr Rate/Dose Verify 10/27/2024 7:00 PM EDT 200 mL/ hr New Bag 10/27/2024 6:42 PM EDT 1 g 200 mL/hr angiotensin II (GIAPREZA) 0.005 mg/mL in sodium chloride 0.9 % 500 mL infusion Intravenous, at 0-58.8 mL/hr, Continuous, Starting on [place] 10/26/24 at 1300, Enter on pump as N O DRUG SELECTED Weaning: Once underlying shock sufficiently improved, defined as krz-trnvocgshfs-PQ-presso r requirement ? 0.2 mcg/kg/min (norepinephrine equivalent) [...] in sodium chloride 0.9 % 100 mL Xvpt6Iki Intravenous, Administer over 30 Minutes, Continuous - [...] paralyzed: Do not titrate - follow policy [id number]. Start infusion if unable to maintain goal [...] as of this encounter Care Teams Medical Supply Technician Relationship Specialty Start Date End Date Enedina Mcguire NP [address] [place] [address] PCP - General Internal Medicine 10/05/24 documented as of this encounter
--- OUTSIDE RECORDS SUMMARY | 2024-11-04 08:40 | XMS_ITS | Encounter Summary ---
Author Organization [facility] Address [address] [place] [address] Care Team Providers Care Medicaid Specialist Name Role Phone Enedina Mcguire NP Primary Care Provider + [phone] Maureen Pantoja RN Unavailable Unavail able Source [...] release of HIV test results or diagnoses. [id number] Reason for Visit * Reason Comments Liver Transplant Follow-up Encounter Details Date Type Department Care Team (Late st Contact Info) Description 11/04/2024 8:40 AM EDT Office Visit [facility] Liver Transplant at [place] [address] [facility] [address] [place] [address] Cosmo Pacheco MD [address] [place] [address] [address] [place] [address] Liver transplant recipient (CMS-HCC) (Primary Dx); Alcoholic cirrhosis of liver with ascites (CMS-HCC); Kidney transplant recipient; Acute kidney injury superimposed on CKD (CMS-HCC); CKD (chronic kidney disease) stage 4, GFR 15-29 ml/min (CMS-HCC); Immunosuppressive management encounter following liver transplant (CMS-HCC); Abdominal pain, unspecified abdominal location Social History Tobacco Use Types Packs/Day Years Used Date Smoking Tobacco: Former Cigarettes Smokeless Tobacco: Current Tobacco Cessation:Ready to Q uit: Not Asked; Counseling Given: No Alcohol Use Standard Drinks/Week Comments Yes 0 (1 standard drink = 0.6 oz pure alcohol) History of alcohol abuse, reports no use in 3 week- typically endorses use as 4 glasses of wine a days Utilities Answer Date Recorded In the past 12 months has th e [employer], [employer], oil, or water company threatened to shut [...] Sign Reading Time Taken Comments Blood Pressure 151/84 11/04/2024 8:47 AM EDT Pulse 87 11/04/2024 8:47 AM EDT Temperature 36.6 C (97.8 F) 11/04/2024 8:47 AM EDT Respiratory Rate 16 11/04/2024 8:47 AM EDT Oxygen Saturation 100% 11/04/2024 8:47 AM EDT Inhaled Oxygen Concentration 100% 11/04/2024 8 :47 AM EDT Weight 108.9 kg (240 lb 1.6 oz) 11/04/2024 8:47 AM EDT Height - - Body Mass Index 29.23 10/26/2024 11:26 AM EDT documented in this encounter Patient Instructions * Patient Instructions* Cosmo Pacheco MD - 11/04/2024 8:40 AM EDT Tacrolimus to 6 mg BID. All else to stay the same Follow up in 1 week. Dilaudid refilled today as this will run out before next appointment. Should wean use to minimal needed before next appointment. documented in this encounter Progress Notes * Cosmo Pacheco MD - 11/04/2024 8:40 AM EDT Transplant Hepatology Follow Up HPI: This is a follow up visit for Julien Anderson who is a 39 y.o. year old male s/p SLK on 10/26/24-10/27/24 for ETOH cirrhosis with acute on chronic kidney disease./ HRS Post operative course uncomplicated. 44 DCD NRP, agonal time 16 min, lactate 9-> 5.6, KDPI 20%. CMV status:D-/R+ EBV status: D+/R+ Toxo status:D-/R- Study: None Pain protocol: B Donor HCV Serologies: Anti-HCV Negative, HCV KIANA Negative Donor HBV Serologies: HBcAb Negative, HBV KIANA Negative Vitamin D level: 7.1 Immunosuppression: Standard Path : negative for malignancy Interval history: discharged 2 days ago, doing well. Current IS: tac 10/17, pred 20 daily, cellcept 500 BID. ROS: The following portions of the patient history were reviewed and updated as appropriate: allergies, current medications, family, medical, surgical and social history and problem list. Review of systems performed. See MA ROS review. Past Medical History: Past Medical History: Diagnosis Date Alcoholic cirrhosis of liver (CMS-HCC) Esophageal varices (CMS-HCC) Hepatorenal syndrome (CMS-HCC) Hypertension Other hyperlipidemia 07/26/2024 Renal cell carcinoma (CMS-HCC) Thrombocytopenia (CMS-HCC) Thyroid disease Allergies: Allergies[1] Medications: Current Outpatient Medications Medication Sig acetaminophen Take 3 tablets (975 mg total) by mouth every 8 hours. alcohol swabs Use as instructed. apixaban Take 1 tablet (2.5 mg total) by mouth 2 times a day for 24 days. Last dose 11/26/24 glucose blood Use to test blood sugar up to 4 times a day. blood-glucose meter Use to test blood sugar up to 4 times a day. ergocalciferol Take 1 capsule (50,000 Units total) by mouth once a week. famotidine Take 1 tablet (20 mg total) by mouth 2 times a day. fluconazole Take 1 tablet (200 mg total) by mouth daily for 24 days. Last day 11/26/24 FLUoxetine Take 1 capsule (20 mg total) by mouth daily. gabapentin Take 1 capsule (100 mg total) by mouth 3 times a day. HYDROmorphone Take 1 tablet (2 mg total) by mouth every 6 hours as needed for up to 7 days. Fiasp FlexTouch U-100 Insulin Administer insulin with meals per sliding scale: Blood glucose 150-199 mg/dL =2 units, Blood glucose 200-249 mg/dL =4 units, Blood glucose 250-299 mg/dL =7 units, Blood glucose 300-349 mg/dL =10 units, Blood glucose greater than 349 mg/dL = 12 units lancets Use to test blood sugar up to 4 times a day. levothyroxine Take 1 tablet (75 mcg total) by mouth every morning before breakfast. linezolid Take 1 tablet (600 mg total) by mouth 2 times a day. loratadine Take 1 tablet (10 mg total) by mouth daily as needed for Allergies (itching). methocarbamoL Take 2 tablets (1,000 mg total) by mouth 3 times a day. mycophenolate Take 2 capsules (500 mg total) by mouth 2 times a day. naloxone Apply 1 spray in one nostril if needed. Call 911. May repeat dose in other nostril if no response in 3 minutes. NIFEdipine Take 1 tablet (30 mg total) by mouth daily. pen needle, diabetic For use with insulin pen. Use as instructed. polyethylene glycol Mix one capful (17 grams) in 8 ounces of liquid and drink by mouth daily as needed (Constipation). predniSONE Take 4 tablets (20 mg total) by mouth daily. senna-docusate Take 1 tablet by mouth at bedtime as needed for Constipation. sodium bicarbonate Take 2 tablets (1,300 mg total) by mouth 2 times a day. sulfamethoxazole-trimethoprim Take 1 tablet by mouth daily. tacrolimus Take 6 capsules (6 mg total) by mouth 2 times a day. Use as directed torsemide Take 1 tablet (20 mg total) by mouth daily. valGANciclovir Take 1 tablet (450 mg total) by mouth daily. No current facility-administered medications for this visit. Physical Examination: Vitals: 11/04/24 0847 BP: 151/84 BP Location: Right upper arm Patient Position: Sitting BP Cuff Size: Regular Pulse: 87 Resp: 16 Temp: 97.8 ??F (36.6 ??C) TempSrc: Oral SpO2: 100% Weight: (!) 240 lb 1.6 oz (108.9 kg) General: looks well HENT:Pupils b/l reactive to light, sclera anicteric, moist mucous membranes Neck:Supple, no thyromegaly, no lymphadenopathy Pulmonary:Good air entry b/l, lungs b/l clear to auscultation, Cardiac:RRR, S1 and S2 normal Abdomen:Soft, ND, NT, well healed surgical scar, active bowel sounds, no hernia, jerry in place Neuro: Awake, alert, oriented x 3, no tremors Extremities: Distal pulses 2+, No LE edema Skin: No rash or jaundice Labs: Lab name 10/28/24 1109 10/28/24 1449 11/02/24 0553 HEMOGLOBIN -- < > 9.2* HEMATOCRIT -- < > 27.5* MEAN CORPUSCULAR VOLUME -- < > 87.9 PLATELETS -- < > 61* SODIUM 144 < > 140 POTASSIUM 3.4* < > 3.3* CHLORIDE 112* < > 107 CO2 22 < > 25 BUN 57* < > 31* CREATININE 2.01* < > 1.08 GLUCOSE 108* < > 150* PHOSPHORUS 4.0 < > 2.0* ALBUMIN -- < > 3.2* ALBUMINKID 3.3* < > 3.2* CALCIUM 8.8 < > 7.8* AST -- < > 30 ALT -- < > 66* BILIRUBIN TOTAL -- < > 1.6* ALK PHOS -- < > 126* INR 1.1 -- -- < > = values in this interval not displayed. Radiology: Assessment and Plan: 39yo, POD#9 from [facility] for ETOH cirrhosis and HRS. Post operative complications as noted above. - Graft function: kidney Cr 1.08, liver tests stable, alk phos 126. AST/ALT 30/66. Bili down to 1.5. - VRE in urine culture -zyvox - repeat sent today, if negative can stop at 7 days. - Immune suppression: most recent tacro level 7.4. increase tacrolimus 6/6 (from 5/5) mg BID and Cellcept 500 mg BID and prednisone 20 mg daily. - HCC surveillance: Patient is categorized as low risk for HCC recurrence - HCV/HBV : donor acute risk, KIANA negative - ID prophylaxis/surveillance: - CMV R+, will need 3 months valcyte - 01/26/25 - will need 6 months PJP proph, ideally with Bactrim SS daily until 01/26/25 - fluconazole - 1 month- stop date 11/25/2024 - Diabetes: sliding scare. Not previously diabetic. Finger stick 90's in the morning. 150-200 usually. - CV: h/o HTN on nifedipime 30 daily and torsemide 20 daily, initially Qtc prolonged during admission (>600ms). Qtc <460 ms since starting fluconazole prior to discharge. Recommend repeat EKG if adding new Qtc prolonging agents. - Wound: jerry in place - Caprini score 10 - eliquis 30 days from start date: 11/25/2024 - Psychosocial: Patient w/ h/o alcohol abuse. - Pain: high narcotic requirement. Discharge on 2 mg dilaudid q6h. Will refill today for 7 days only. - Nutrition: patient continues close f/u w/ transplant white sugar syrup operator. - Bone health: Vit D level to be drawn ~POD#90. - Labs: Labs (CBC w/ diff, renal panel, liver panel, tacro level) twice a week. Lipid panel, [id number] Vit D level to be drawn at POD#90, HgbA1C and Vit D level to be drawn at POD#180. - Follow up: RTC 1 week Total time spent with patient 30 minutes face to face in total. This did not include time spent (15minutes) reviewing the films, discussing care with the referring doctor and discussion with our multidisciplinary team. This note was completely edited, written and reviewed by me and may consist of information cut and pasted from the [...] current evaluation and management for this patient. Cosmo Pacheco MD Etcher Photoengraving of Transplant Surgery [phone] (m) [1] Allergies Allergen Reactions Adhesive Itching and Rash Tegaderm adhesive on Ivs, pt states its tolerable Duloxetine Other (See Comments) Became Manic * Maureen Pantoja RN - 11/04/2024 8:40 AM EDT After visit summary including patient instructions reviewed with patient and patient's . Medication list reviewed and updated. Checked with patient to see if prescription refills and/or lab orders were needed. Updated preferred pharmacy and preferred lab information in patient demographics. Care coordinated with other team members and other medical providers as needed. Patient presents with the following needs: - Txp CSS to send additional lab orders to outside lab * Maureen Pantoja RN - 11/04/2024 8:[address] Juarez, WESLEY for patient to stop Linezolid on 11/09/24. She will notify patient. documented in this encounter Plan of Treatment Upcoming Encounters Date Type Department Care Team (Late st Contact Info) Description 12/05/2024 8:01 AM EDT Hospital Encounter [facility] ENDOSCOPY [address] [place] [address] Chris Orosco MD [address] [place] [address] [phone] 12/05/2024 8:01 AM EDT - 12/05/2024 8:31 AM EDT Surgery [facility] ENDOSCOPY [address] [place] [address] Chris Orosco MD [address] [place] [address] [phone] EGD Scheduled Procedures Name Priority Associated Diagnoses Date/Ti me EGD Cirrhosis of liver with ascites, unspecified hepatic cirrhosis type (CMS-HCC) 12/05/2024 8:01 AM EDT documented as of this encounter Visit Diagnoses Diagnosis Liver transplant recipient (CMS-HCC)- Primary Alcoholic cirrhosis of liver with ascites (CMS-HCC) Kidney transplant recipient Acute kidney injury superimposed on CKD (CMS-HCC) CKD (chronic kidney disease) stage 4, GFR 15-29 ml/min (CMS-HCC) Chronic kidney disease, Stage IV (severe) Immunosuppressive management encounter following liver transplant (CMS-HCC) Abdominal pain, unspecified abdominal location Cirrhosis of liver with ascites, unspecified hepatic cirrhosis type (CMS-HCC) documented in this encounter Additional Health Concerns Infection Onset Date Last Indicated Resolved Time 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, VRE- urine 10/31/2024 11/04/2024 Assessment Noted Time PHQ-9 Depression Total Score: 17 025 11:00 AM EDT documented as of this encounter Care Teams Medicaid Specialist Relationship Specialty Start Date End Date Enedina Mcguire NP [address] [place] [address] PCP - General Internal Medicine 10/05/24 Maureen Pantoja, ЮЛИЯ Txp Post Coordinator Transplant Hepatology 10/28/24 documented as of this encounter
--- OUTSIDE RECORDS SUMMARY | 2024-11-04 10:10 | XMS_ITS | Encounter Summary ---
Author Organization [facility] Address [facility] [place] [address] Care Team Providers Care Computer Forensics Investigator Name Role Phone Enedina Mcguire NP Primary Care Provider + [phone] Maureen Pantoja RN Unavailable Unavail able Source [...] release of HIV test results or diagnoses. [id number] Reason for Visit * Reason Comments Kidney Transplant Follow-up Encounter Details Date Type Department Care Team (Late st Contact Info) Description 11/04/2024 10:10 AM EDT Office Visit [facility] at [facility] [address] [facility] [address] [place] [address] eLisa Juarez MD [facility] 2nd [place] [address] Kidney transplant recipient (Primary Dx); [...] the past 12 months has th e [employer], oil, or water State of [employer] threatened to shut off services in your [...] living in a half-way (including now)? No 10/29/2024 Yearly Questionnaire Answer [...] the original note were not included. Name: Juline Anderson Date of : 1985 (39 y.o.) [...] packing; Surgeon: Harvey Domínguez III, MD; Location: [facility]; Service: Transplant; Laterality: N/A; Family History: [...] Physical Activity: Unknown (07/14/2024) Received from [facility] Exercise Vital Sign Days of Exercise per Week: Patient unable to answer Minutes of Exercise per Session: Not on file Stress: Patient Unable To Answer (07/14/2024) Received from [facility] [employer] [place] [employer]ational [employer] - Occupational Stress Questionnaire Feeling of Stress : Patient unable to answer Social Connections: Patient Unable To Answer (07/14/2024) Received from [facility] Social Connection and Isolation Panel [NHANES] [...] = 12 units lancets (ACCU-CHEK SOFTCLIX LANCETS) [facility] Use to test blood sugar up to [...] times a day. naloxone (NARCAN) 4 mg/actuation [place] Apply 1 spray in one nostril if [...] Results Component Value Date PTH 36.0 10/25/2024 [id number] 7.1 (L) 10/08/2024 Hemoglobin A1C: Lab Results [...] 12/05/2024 8:01 AM EDT Hospital Encounter [facility] ENDOSCOPY [address] [place] [phone] Chris Orosco MD [address] [place] [phone] 12/05/2024 8:01 AM EDT - 12/05/2024 8:31 AM EDT Surgery [facility] ENDOSCOPY [address] [place] [phone] Chris Orosco MD [address] [place] [phone] EGD Scheduled Orders Name Type Priority Associated [...] - 2.5 mg/dL 11/11/2024 10:[address] [facility] Plasma 11/11/2024 9:13 AM EDT 11/11/2024 10:19 AM EDT Yareli Zaragoza CNP LAB BLOOD ORDERABLES Denisse l Result Performing Organization Address [facility]/ZIP Co de Phone Number [facility] [address] * (ABNORMAL) Post Kidney Transplant Urine Culture (11/11/2024 9:13 AM EDT) Culture Result Enterococcus faecium(A) [facility] Comment: <1,000 cfu/mL Identified by MALDI-TOF MS No Further Workup Midstream Urine URINE SPECIMEN / Unknown 11/11/2024 9:13 AM EDT 11/11/2024 10:17 AM EDT Yareli Zaragoza [facility] MICROBIOLOGY - GENERAL OR DERABLES Final Result Performing Organization Address [facility] de Phone Number [facility] [address] [facility]. [address] * Protein / creatinine ratio, urine (11/11/2024 9:13 AM EDT) Creatinine, Urine 71.40 mg/dL 11/11/2024 10:[address] [facility] Comment:Reference range not established for this test. Total Protein, Ur 28 mg/dL 11/11/2024 10:[address] [facility] Comment:Reference range not established for this test. Prot/Creat Ratio, Ur 0.39 ratio 11/11/2024 10:[address] [facility] Urine 11/11/2024 9:13 AM EDT 11/11/2024 10:12 AM EDT Yareli Zaragoza CNP URINE ORDERABLES Final Re sult Performing Organization Address [facility] Co de Phone Number [facility] [address] * (ABNORMAL) Urinalysis w/Rfl to Microscopic (11/11/2024 9:13 AM EDT) Color, UA Straw Yellow,Straw 11/11/2024 10:[address] [facility] Clarity, UA Clear Clear 11/11/2024 10:[address] [facility] Specific [place], UA 1.015 1.005 - 1.035 11/11/2024 10:[address] [facility] pH, UA 6.0 5.0 - 8.0 11/11/2024 10:[address] [facility] Protein, UA Negative Negative mg/dL 11/11/2024 10:[address] [facility] Glucose, UA Negative Negative mg/dL 11/11/2024 10:[address] [facility] Ketones, UA Negative Negative mg/dL 11/11/2024 10:[address] [facility] Bilirubin, UA Negative Negative 11/11/2024 10:[address] [facility] Blood, UA Small(A) Negative 11/11/2024 10:[address] [facility] Nitrite, UA Negative Negative 11/11/2024 10:[address] [facility] Urobilinogen, UA <2.0 0.2 - 1.9 mg/dL 11/11/2024 10:[address] [facility] Leukocyte Esterase, UA Negative Negative 11/11/2024 10:[address] [facility] RBC, UA 13(H) 0 - 3 /HPF 11/11/2024 10:[address] [facility] WBC, UA 4 0 - 5 /HPF 11/11/2024 10:[address] [facility] Urine 11/11/2024 9:13 AM EDT 11/11/2024 10:10 AM EDT Yareli Zaragoza HOME DELIVERY DRIVER URINE ORDERABLES Final Re sult [facility] [address] [facility]. [address] * (ABNORMAL) Magnesium (11/04/2024 8:46 AM EDT) Magnesium 1.0(L) 1.5 - 2.5 mg/dL 11/04/2024 10:[address] [facility] Plasma 11/04/2024 8:4 6 AM EDT 11/04/2024 9:32 AM EDT Yareli Zaragoza [facility] LAB BLOOD ORDERABLES Denisse l Result Performing Organization Address City/[facility] Co de Phone Number [facility] [address] [facility] [place] [address], [facility] * (ABNORMAL) Post Kidney Transplant Urine Culture (11/04/2024 8:46 AM EDT) Pathologist [facility] Culture Result Enterococcus faecium, Vancomycin Resistant(A) [facility] Comment: 1,000- <10,000 cfu/mL Identified [...] SARMAD >=32: Resistant Comment:See Results Yareli Zaragoza [facility] MICROBIOLOGY - GENERAL OR DERABLES Final Result Performing Organization Address [facility] Co de Phone Number [facility] [address] [facility]. [address] * Protein / creatinine ratio, urine (11/04/2024 8:46 AM EDT) Creatinine, Urine 37.30 mg/dL 11/04/2024 2:[address] [facility] Comment:Reference range not established for this test. Total Protein, Ur 42 mg/dL 11/04/2024 2:[address] [facility] Comment:Reference range not established for this test. Prot/Creat Ratio, Ur 1.13 ratio 11/04/2024 2:[address] [facility] Urine 11/04/2024 8:46 AM EDT 11/04/2024 9:32 AM EDT Yareli Zaragoza HOME DELIVERY DRIVER URINE ORDERABLES Final Re sult [facility] [address] [place] [id number] * (ABNORMAL) Urinalysis w/Rfl to Microscopic (11/04/2024 8:46 AM EDT) Color, UA Straw Yellow,Straw 11/04/2024 10:[address] [facility] Clarity, UA Clear Clear 11/04/2024 10:[address] [facility] Specific [place], UA 1.012 1.005 - 1.035 11/04/2024 10:[address] [facility] pH, UA 6.5 5.0 - 8.0 11/04/2024 10:[address] [facility] Protein, UA Trace(A) Negative mg/dL 11/04/2024 10:[address] [facility] Glucose, UA Negative Negative mg/dL 11/04/2024 10:[address] [facility] Ketones, UA Negative Negative mg/dL 11/04/2024 10:[address] [facility] Bilirubin, UA Negative Negative 11/04/2024 10:[address] [facility] Blood, UA Large(A) Negative 11/04/2024 10:[address] [facility] Nitrite, UA Negative Negative 11/04/2024 10:[address] [facility] Urobilinogen, UA <2.0 0.2 - 1.9 mg/dL 11/04/2024 10:[address] [facility] Leukocyte Esterase, UA Negative Negative 11/04/2024 10:[address] [facility] RBC, UA >100(H) 0 - 3 /HPF 11/04/2024 10:[address] [facility] WBC, UA 2 0 - 5 /HPF 11/04/2024 10:[address] [facility] Bacteria, UA Rare(A) None Seen /HPF 11/04/2024 10:[address] [facility] Hyaline Casts, UA 3(H) 0 - 2 /LPF 11/04/2024 10:[address] [facility] Urine 11/04/2024 8:46 AM EDT 11/04/2024 9:33 AM EDT us Yareli Zaragoza HOME DELIVERY DRIVER URINE ORDERABLES Final Re sult [facility] [address] [place] [address], [facility] documented in this encounter [...] documented as of this encounter Care Teams Computer Forensics Investigator Relationship Specialty Start Date End Date Enedina Mcguire NP [address] [place] [address] PCP - General Internal Medicine 10/05/24 Maureen Pantoja, RN Txp Post Coordinator Transplant Hepatology 10/28/24 documented as of this encounter
--- OUTSIDE RECORDS SUMMARY | 2024-11-11 08:50 | XMS_ITS | Encounter Summary ---
Author Organization [facility] Address [facility] [place] [address] Care Team Providers Care Pre Owned Sales Consultant Name Role Phone Enedina Mcguire NP Primary Care Provider + [phone] Maureen Pantoja RN Unavailable Unavail able Source [...] release of HIV test results or diagnoses. [id number] Reason for Visit * Reason Comments Labs Only Encounter Details Date Type Department Care Team (Late st Contact Info) Description 11/11/2024 8:50 AM EDT Specimen [facility] Outreach Lab [facility] [place] [address] Harvey Domínguez III, MD [facility] [address] [place] [address] Liver replaced by transplant ([facility]); Immunosuppressive management encounter following liver transplant ([facility]); Kidney transplant recipient Social History Tobacco Use [...] the past 12 months has th e [employer], oil, or water company threatened to shut [...] [facility] ENDOSCOPY [address] [place] [address] Chris Orosco MD [address] [place] [phone] 12/05/2024 8:01 AM EDT - 12/05/2024 8:31 AM EDT Surgery [facility] ENDOSCOPY [address] [place] [address] Chris Orosco MD [address] [place] [phone] EGD Scheduled Procedures Name Priority Associated Diagnoses [...] 9:13 AM EDT Liver replaced by transplant ([facility]) Immunosuppressive management encounter following liver transplant ([facility]-HCC) PROTEIN / CREATININE RATIO, URINE Routine 11/11/2024 9:13 AM EDT Kidney transplant recipient DIFFERENTIAL Routine 11/11/2024 9:13 AM EDT Liver replaced by transplant ([facility]) Immunosuppressive management encounter following liver transplant ([facility]-HCC) URINALYSIS W/RFL TO MICROSCOPIC Routine 11/11/2024 9:13 AM EDT Kidney transplant recipient CBC Routine 11/11/2024 9:13 AM EDT Liver replaced by transplant ([facility]) Immunosuppressive management encounter following liver transplant ([facility]) MAGNESIUM Routine 11/11/2024 9:13 AM EDT Kidney transplant recipient documented in this encounter Results * (ABNORMAL) Magnesium (11/11/2024 9:13 AM EDT) Magnesium 1.2(L) 1.5 - 2.5 mg/dL 11/11/2024 10:51 AM EDT [facility] Plasma 11/11/2024 9:13 AM EDT 11/11/2024 10:19 AM EDT Caron Santos [facility] LAB BLOOD ORDERABLES Denisse l Result [facility] [address] [place] [address], [facility] * (ABNORMAL) Post Kidney Transplant Urine Culture (11/11/2024 9:13 AM EDT) Culture Result Enterococcus faecium(A) [facility] Comment: <1,000 cfu/mL Identified by MALDI-TOF MS No Further Workup Midstream Urine URINE SPECIMEN / Unknown 11/11/2024 9:13 AM EDT 11/11/2024 10:17 AM EDT Caron Santos CNP MICROBIOLOGY - GENERAL OR DERABLES Final Result Performing Organization Address [facility]/ZIP Co de Phone Number [facility] [address] [facility]. [address] * Protein / creatinine ratio, urine (11/11/2024 9:13 AM EDT) Creatinine, Urine 71.40 mg/dL 11/11/2024 10:38 AM EDT [facility] Comment:Reference range not established for this test. Total Protein, Ur 28 mg/dL 11/11/2024 10:38 AM EDT [facility] Comment:Reference range not established for this test. Prot/Creat Ratio, Ur 0.39 ratio 11/11/2024 10:38 AM EDT [facility] Urine 11/11/2024 9:1 3 AM EDT 11/11/2024 10:12 AM EDT Caron Santos CNP URINE ORDERABLES Final Re sult Performing Organization Address [facility] Co de Phone Number [facility] [address] [place] [facility]. [address] * (ABNORMAL) Urinalysis w/Rfl to Microscopic (11/11/2024 9:13 AM EDT) Color, UA Straw Yellow,Straw 11/11/2024 10:36 AM EDT [facility] Clarity, UA Clear Clear 11/11/2024 10:36 AM EDT [facility] Specific [place], UA 1.015 1.005 - 1.035 11/11/2024 10:36 AM EDT [facility] pH, UA 6.0 5.0 - 8.0 11/11/2024 10:36 AM EDT [facility] Protein, UA Negative Negative mg/dL 11/11/2024 10:36 AM EDT [facility] Glucose, UA Negative Negative mg/dL 11/11/2024 10:36 AM EDT [facility] Ketones, UA Negative Negative mg/dL 11/11/2024 10:36 AM EDT [facility] Bilirubin, UA Negative Negative 11/11/2024 10:36 AM EDT [facility] Blood, UA Small(A) Negative 11/11/2024 10:36 AM EDT [facility] Nitrite, UA Negative Negative 11/11/2024 10:36 AM EDT [facility] Urobilinogen, UA <2.0 0.2 - 1.9 mg/dL 11/11/2024 10:36 AM EDT [facility] Leukocyte Esterase, UA Negative Negative 11/11/2024 10:36 AM EDT [facility] RBC, UA 13(H) 0 - 3 /HPF 11/11/2024 10:36 AM EDT [facility] WBC, UA 4 0 - 5 /HPF 11/11/2024 10:36 AM EDT [facility] Urine 11/11/2024 9:13 AM EDT 11/11/2024 10:10 AM EDT Caron Santos [facility] URINE ORDERABLES Final Re sult [facility] [address] * (ABNORMAL) Differential (11/11/2024 9:13 AM EDT) Neutrophils Relative 69.3 40.0 - 80.0 % 11/11/2024 10:31 AM EDT [facility] Lymphocytes Relative 17.6 15.0 - 45.0 % 11/11/2024 10:31 AM EDT [facility] Monocytes Relative 8.5 0.0 - 12.0 % 11/11/2024 10:31 AM EDT [facility] Eosinophils Relative 2.0 0.0 - 8.0 % 11/11/2024 10:31 AM EDT [facility] Basophils Relative 2.6(H) 0.0 - 1.0 % 11/11/2024 10:31 AM EDT [facility] nRBC 0 0 - 0 /100 WBC 11/11/2024 10:31 AM EDT [facility] Neutrophils Absolute 4,920 1,520 - 8,640 /uL 11/11/2024 10:31 AM EDT [facility] Lymphocytes Absolute 1,250 570 - 4,860 /uL 11/11/2024 10:31 AM EDT [facility] Monocytes Absolute 604 0 - 1,296 /uL 11/11/2024 10:31 AM EDT [facility] Eosinophils Absolute 142 0 - 864 /uL 11/11/2024 10:31 AM EDT [facility] Basophils Absolute 185(H) 0 - 108 /uL 11/11/2024 10:31 AM EDT [facility] Whole Blood 11/11/2024 9:13 AM EDT 11/11/2024 10:19 AM EDT Narrative [facility] - 11/11/2024 10:31 AM EDT Standing orders to be drawn: Every Sunday and before 9am and prior to patient taking morning medications. Liver Transplant Fax results to [phone] Call Critical results to [phone] us Harvey Domínguez III, MD LAB BLOOD ORDERABLE S Final Result [facility] [address] * (ABNORMAL) CBC (11/11/2024 9:13 AM EDT) WBC 7.1 3.8 - 10.8 10E3/uL 11/11/2024 10:31 AM EDT [facility] RBC 3.42(L) 4.20 - 5.80 10E6/uL 11/11/2024 10:31 AM EDT [facility] Hemoglobin 10.6(L) 13.2 - 17.1 g/dL 11/11/2024 10:31 AM EDT [facility] Hematocrit 31.3(L) 38.5 - 50.0 % 11/11/2024 10:31 AM EDT [facility] MCV 91.5 80.0 - 100.0 fL 11/11/2024 10:31 AM EDT [facility] MCH 31.0 27.0 - 33.0 pg 11/11/2024 10:31 AM EDT [facility] MCHC 33.8 32.0 - 36.0 g/dL 11/11/2024 10:31 AM EDT [facility] RDW 20.5(H) 11.0 - 15.0 % 11/11/2024 10:31 AM EDT [facility] Platelets 308 140 - 400 10E3/uL 11/11/2024 10:31 AM EDT [facility] MPV 6.1(L) 7.5 - 11.5 fL 11/11/2024 10:31 AM EDT [facility] Whole Blood 11/11/2024 9:13 AM EDT 11/11/2024 10:19 AM EDT Narrative [facility] - 11/11/2024 10:31 AM EDT Standing orders to be drawn: Every Sunday and before 9am and prior to patient taking morning medications. Liver Transplant Fax results to [phone] Call Critical results to [phone] us Harvey Domínguez III, MD LAB BLOOD ORDERABLE S Final Result [facility] [address] * (ABNORMAL) Renal Function Panel w/EGFR (11/11/2024 9:13 AM EDT) Sodium 141 133 - 146 mmol/L 11/11/2024 10:51 AM EDT [facility] Potassium 4.6 3.5 - 5.3 mmol/L 11/11/2024 10:51 AM EDT [facility] Chloride 108 98 - 110 mmol/L 11/11/2024 10:51 AM EDT [facility] CO2 24 21 - 33 mmol/L 11/11/2024 10:51 AM EDT [facility] Anion Gap 9 3 - 16 mmol/L 11/11/2024 10:51 AM EDT [facility] BUN 27(H) 7 - 25 mg/dL 11/11/2024 10:51 AM EDT [facility] Creatinine 1.14 0.60 - 1.30 mg/dL 11/11/2024 10:51 AM EDT [facility] Glucose 97 70 - 100 mg/dL 11/11/2024 10:51 AM EDT [facility] Calcium 8.6 8.6 - 10.3 mg/dL 11/11/2024 10:51 AM EDT [facility] Phosphorus 4.4 2.1 - 4.7 mg/dL 11/11/2024 10:51 AM EDT [facility] Albumin 3.8 3.5 - 5.7 g/dL 11/11/2024 10:51 AM EDT [facility] Osmolality, Calculated 297 278 - 305 mOsm/kg 11/11/2024 10:51 AM EDT [facility] EGFR 83 11/11/2024 10:51 AM EDT [facility] Comment:As of 2021, the estimated [...] AM EDT 11/11/2024 10:19 AM EDT Narrative [facility] - 11/11/2024 10:51 AM EDT Standing orders to be drawn: Every Sunday and before 9am and prior to patient taking morning medications. Liver Transplant Fax results to [phone] Call Critical results to [phone] DO NOT REPLACE RENAL PANEL or HEPATIC FUNCTION PANEL w/ CMP, BMP or HEPATIC PROFILE Harvey Domínguez III, MD LAB BLOOD ORDERABLE S Final Result [facility] [address] * (ABNORMAL) Hepatic Function Panel (11/11/2024 9:13 AM EDT) Total Bilirubin 1.0 0.0 - 1.5 mg/dL 11/11/2024 10:51 AM EDT [facility] Bilirubin, Direct 0.39 0.00 - 0.40 mg/dL 11/11/2024 10:51 AM EDT [facility] AST 15 13 - 39 U/L 11/11/2024 10:51 AM EDT [facility] ALT 26 7 - 52 U/L 11/11/2024 10:51 AM EDT [facility] Alkaline Phosphatase 125 36 - 125 U/L 11/11/2024 10:51 AM EDT [facility] Total Protein 5.9(L) 6.4 - 8.9 g/dL 11/11/2024 10:51 AM EDT [facility] Albumin 3.8 3.5 - 5.7 g/dL 11/11/2024 10:51 AM EDT [facility] Bilirubin, Indirect 0.61 0.00 - 1.10 mg/dL 11/11/2024 10:51 AM EDT [facility] Plasma 11/11/2024 9:13 AM EDT 11/11/2024 10:19 AM EDT Narrative [facility] - 11/11/2024 10:51 AM EDT Standing orders to be drawn: Every Sunday and before 9am and prior to patient taking morning medications. Liver Transplant Fax results to [phone] Call Critical results to [phone] DO NOT REPLACE RENAL PANEL or HEPATIC FUNCTION PANEL w/ CMP, BMP or HEPATIC PROFILE us Harvey Domínguez III, MD LAB BLOOD ORDERABLE S Final Result [facility] [address] [place] [address], [facility] * Tacrolimus level (11/11/2024 9:13 AM EDT) Tacrolimus (LC-MS) 10.4 3.0 - 15.0 ng/mL 11/11/2024 1:22 PM EDT [facility] Comment:Performed via liquid chromatography tandem mass spectrometry. Detection limit: 1 ng/mL. Individual target concentrations may vary due to target organ and time after transplant. This test has been developed and its performance characteristics determined by [facility] which is certified under the [...] AM EDT 11/11/2024 10:19 AM EDT Narrative [facility] - 11/11/2024 1:22 PM EDT Standing orders to be drawn: Every Sunday and before 9am and prior to patient taking morning medications. Liver Transplant Fax results to [phone] Call Critical results to [phone] Harvey Domínguez III, MD LAB BLOOD ORDERABLE S Final Result [facility] [address] documented in this encounter Visit Diagnoses [...] documented as of this encounter Care Teams Pre Owned Sales Consultant Relationship Specialty Start Date End Date Enedina Mcguire NP [address] [place] [id number] PCP - General Internal Medicine 10/05/24 Maureen Pantoja, ЮЛИЯ Txp Post Coordinator Transplant Hepatology 10/28/24 documented as of this encounter
--- OUTSIDE RECORDS SUMMARY | 2024-11-11 09:30 | XMS_ITS | Encounter Summary ---
Author Organization [facility] Address [address] [place] [address] Care Team Providers Care Auto Club Travel Counselor Name Role Phone Enedina Mcguire NP Primary Care Provider + [phone] Maureen Pantoja RN Unavailable Unavail able Source [...] release of HIV test results or diagnoses. [id number] Health Encounter Details Date Type Department Care Team (Late st Contact Info) Description 11/11/2024 9:30 AM EDT Office Visit [facility] Psychiatry Transplant at [facility] [address] [facility] [address] [place] [address] Craig Warren PsyD [address] [facility] [address] [place] [address] PTSD (post-traumatic stress disorder) (Primary [...] In the past 12 months has th [employer], [employer], or [employer] threatened to shut off services in your [...] alcohol and CKD IIIb/IV. Seen by this creative writer for pre-surgical evaluation. PMH includes PTSD [...] Hospital Encounter [facility] ENDOSCOPY [address] [place] [address] Chris Orosco MD [address] [place] [address] 12/05/2024 8:01 AM EDT - 12/05/2024 8:31 AM EDT Surgery [facility] ENDOSCOPY [address] [place] [id number] Chris Orosco MD [address] [place] [id number] EGD Scheduled Procedures Name Priority Associated Diagnoses Date/Ti me EGD Cirrhosis of liver with ascites, unspecified hepatic cirrhosis type (CMS-HCC) 12/05/2024 8:01 AM EDT documented as of this encounter Visit Diagnoses Diagnosis PTSD (post-traumatic stress disorder)- Primary Posttraumatic stress disorder Cirrhosis of liver with ascites, unspecified hepatic cirrhosis type (CMS-HCC) documented in this encounter Additional Health Concerns Infection Onset Date Last Indicated 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
--- OUTSIDE RECORDS SUMMARY | 2024-11-11 10:00 | XMS_ITS | Encounter Summary ---
Author Organization [facility] Address [address] [place] [address] Care Team Providers Care House Admin Name Role Phone Enedina Mcguire NP Primary Care Provider + [phone] Maureen Pantoja RN Unavailable Unavail able Source [...] release of HIV test results or diagnoses. [id number] Reason for Visit * Reason Comments Liver Transplant Follow-up Encounter Details Date Type Department Care Team (Late st Contact Info) Description 11/11/2024 10:00 AM EDT Office Visit [facility] Liver Transplant at [place] [address] [place] [address] Cosmo Pacheco MD [address] [place], [place] [address] [place] [address] Harvey Domínguez III, MD [address] [place] [address] [address] [place] [address] Encounter for therapeutic drug monitoring (Primary Dx); Abdominal pain, unspecified abdominal location Social History [...] the past 12 months has th e [employer], [employer], oil, or water company threatened to shut [...] Sign Reading Time Taken Comments Blood Pressure 129/80 11/11/2024 10:48 AM EDT Pulse 86 11/11/2024 10:48 AM EDT Temperature 36.6 C (97.8 F) 11/11/2024 10:48 AM EDT Respiratory Rate 16 11/11/2024 10:48 AM EDT Oxygen Saturation 100% 11/11/2024 10:48 AM EDT Inhaled Oxygen Concentration 100% 11/11/2024 1 0:48 AM EDT Weight 98.9 kg (218 lb) 11/11/2024 10:48 AM EDT Height - - Body Mass Index 26.54 10/26/2024 11:26 AM EDT documented in this encounter Patient Instructions * Patient Instructions* Kemar Sahni MD - 11/11/2024 10:00 AM EDT Reduce Prednisone to 15 mg daily from 11/15 Reduce torsemide to 10 mg daily May adjust tacrolimus dose based on today's result Continue twice weekly labs Return to clinic in 2 weeks documented in this encounter Progress Notes * Calista Baig, TaniD - 11/11/2024 10:00 AM EDT Transplant Pharmacist Assessment and Recommendations: Current Outpatient Medications Medication Sig acetaminophen (TYLENOL) 325 MG tablet Take 3 tablets (975 mg total) by mouth every 8 hours. alcohol swabs PadM Use as instructed. apixaban (ELIQUIS) 2.5 mg Tab Take 1 tablet (2.5 mg total) by mouth 2 times a day for 24 days. Lastdose 11/26/24 blood sugar diagnostic (GLUCOSE BLOOD) Strp Use [...] mouth daily as needed for Allergies (itching). magnesium chloride (SLOW MAG) 71.5 mg TbEC Take 2 tablets (143 mg total) by mouth 3 times a day. Indications: hypomagnesemia methocarbamoL (ROBAXIN) 500 MG tablet Take 2 tablets (1,000 mg total) by mouth 3 times a day. mycophenolate (CELLCEPT) 250 mg capsule Take 2 capsules (500 mg total) by mouth 2 times a day. naloxone (NARCAN) 4 mg/actuation [place] Apply 1 spray in one nostril if [...] No current facility-administered medications for this visit. OLT Indication: ALD Immunosuppression: STANDARD SLKT - POD #16 Perioperative immunosuppression regimen included: steroid taper, tacrolimus and Mycophenolate Mofetil. Currently on tacrolimus 6mg bid, mycophenolate 500mg BID, and prednisone 20mg. Administers medications at: 9 am/pm Goal Tacrolimus level per protocol is 10-12 ng/mL. Donor: n/a Rejection History: none Prophylaxis: Fungal (Fluconazole): 1 month per protocol. Discontinue: 11/25/24 PCP (Bactrim): 3 months per protocol. Discontinue: 01/26/25 Viral (Valcyte 450mg daily): 3 months per protocol (D-/R+). Discontinue: 01/26/25 Zyvox: initiated on 11/02/24 for urine culture with VRE. Patient discharged with 14 day supply. COMPLETED. VTE Prophylaxis (Caprini score 10): Apixiban 2.5mg bid: 30 day duration per protocol: Discontinue: 11/25/24 Blood Sugars: NOT diabetic prior to transplant Discharged on correction insulin and with home monitoring. Continue to monitor 11/11/24: reviewed; readings range: AM: 102-133, lunch: 140-181, dinner: 159-200, bedtime: 142-190. On correction (Prednisone 20mg daily) Blood pressure: NOT on Therapy BP: 129/80 mmHg, pulse 86 in clinic today. Continue to monitor. Other: Pain (Category B): reports pain is controlled. Discharged on acetaminophen 975mg every 8 hours, gabapentin 100mg tid, methocarbamol 1000mg tid and dilaudid (per provider as pain not controlled duringadmission with oxycodone). Reports taking dilaudid ~3 times today. Vitamin D: weekly supplement; assess with 90 day labs Adherence: Patient reports missing 0 doses in the past 7 days The following barriers to adherence have been identified: none It is my assessment that the patient demonstrates satisfactory adherence and medication understanding. Patient reviewed medications/dosages from card with me while in clinic. Recommendations: Tacrolimus: level 9.9 ng/ml (11/06/24) on 6mg bid. Assess Fluconazole: continue through 11/25/24 VTE Prophylaxis: continue through 11/25/24 BS: assess; no changes Pain: continue to monitor and taper therapies as indicated Renal: seeing HRS today (assess torsemide and sodium bicarbonate) * Kemar Sahni MD - 11/11/2024 10:00 AM EDT Transplant Hepatology Follow Up HPI: [...] Path : negative for malignancy Interval history: doing well at home, tolerating a diet. Returned to ADLs that doesn't involve straining his core. Reduced diuretics dose in half per providers recs. Current IS: tac 10/17, pred 20 daily, [...] by mouth every morning before breakfast. loratadine Take 1 tablet (10 mg total) by mouth daily as needed for Allergies (itching). magnesium chloride Take 2 tablets (143 mg total) by mouth 3 times a day. Indications: hypomagnesemia methocarbamoL Take 2 tablets (1,000 mg total) [...] at bedtime as needed for Constipation. sulfamethoxazole-trimethoprim Take 1 tablet by mouth daily. tacrolimus Take 6 capsules (6 mg total) by mouth 2 times a day. Use as directed torsemide Take 1 tablet (20 mg total) by mouth daily. valGANciclovir Take 1 tablet (450 mg total) by mouth daily. No current facility-administered medications for this visit. Physical Examination: Vitals: 11/11/24 1048 BP: 129/80 BP Location: Right upper arm Patient Position: Sitting BP Cuff Size: Regular Pulse: 86 Resp: 16 Temp: 97.8 ??F (36.6 ??C) TempSrc: Oral SpO2: 100% Weight: 218 lb (98.9 kg) General: looks well HENT:Pupils b/l reactive to light, sclera anicteric, moist mucous membranes Neck:Supple, no thyromegaly, no lymphadenopathy Pulmonary:Good air entry b/l, lungs b/l clear to auscultation, Cardiac:RRR, S1 and S2 normal Abdomen:Soft, ND, NT, well healed surgical scar, active bowel sounds, no hernia, jerry in place Neuro: Awake, alert, oriented x 3, no tremors Extremities: Distal pulses 2+, has bilateral LE edema Skin: No rash or jaundice Labs: Lab name 10/28/24 1109 10/28/24 1449 11/11/24 0913 HEMOGLOBIN -- < > 10.6* HEMATOCRIT -- < > 31.3* MEAN CORPUSCULAR VOLUME -- < > 91.5 PLATELETS -- < > 308 SODIUM 144 < > 141 POTASSIUM 3.4* < > 4.6 CHLORIDE 112* < > 108 CO2 22 < > 24 BUN 57* < > 27* CREATININE 2.01* < > 1.14 GLUCOSE 108* < > 97 PHOSPHORUS 4.0 < > 4.4 ALBUMIN -- < > 3.8 ALBUMINKID 3.3* < > 3.8 CALCIUM 8.8 < > 8.6 AST -- < > 15 ALT -- < > 26 BILIRUBIN TOTAL -- < > 1.0 ALK PHOS -- < > 125 INR 1.1 -- -- < > = values in this interval not displayed. Lab name 11/06/24 0836 TACROLIMUS BLOOD 9.9 Radiology: Assessment and Plan: 39yo, POD#16 from [facility] for ETOH cirrhosis and HRS. Post operative complications as noted above. 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 Continue tacrolimus 6 BID and Cellcept 500 mg BID and prednisone 20 mg daily. Change to 15 mg daily Sunday11/15/24 - HCC surveillance: Patient is categorized as [...] on nifedipime 30 daily and torsemide 20 daily. Reduce torsemide to 10 mg daily - Wound: jerry in place - Caprini score 10 - eliquis 30 days from start date: 11/25/2024 - Psychosocial: Patient w/ h/o alcohol abuse. - Pain: high narcotic requirement. Discharged on 2 mg dilaudid q6h. - Nutrition: patient continues close f/u w/ transplant wildlife rehabilitator. - Bone health: Vit D level to be drawn ~POD#90. - Labs: Labs (CBC w/ diff, renal panel, liver panel, tacro level) twice a week. Lipid panel, [id number] Vit D level to be drawn at POD#90, HgbA1C and Vit D level to be drawn at POD#180. - Follow up: RTC 2 weeks Kemar Sahni MD, Fellow, Multiorgan Abdominal Transplant Surgery. [facility]. [1] Allergies Allergen Reactions Adhesive Itching and Rash Tegaderm adhesive on Ivs, pt states its tolerable Duloxetine Other (See Comments) Became Manic Cosigned by Harvey Domínguez III, MD at 11/11/2024 4:13 PM EDT Associated attestation - Harvey Domínguez III, MD - 11/11/2024 4:13 PM EDT I saw and evaluated the patient, and discussed with the fellow. I agree with the fellow???s findings and plan as documented in the fellow???s note. Immunosuppression reviewed and discussed with the fellow. --- Diandra Domínguez III, MD Transplant Surgery (cell) * Maureen Pantoja RN - 11/11/2024 10:00 AM EDT After visit summary including patient instructions reviewed with patient and patient's father. Medication list reviewed and updated. Checked with patient to see if prescription refills and/or lab orders were needed. Updated preferred pharmacy and preferred lab information in patient demographics. Care coordinated with other team members and other medical providers as needed. Patient presents with the following needs: - Txp Provider to send script for Dilaudid to local pharmacy. documented in this encounter Plan of Treatment Upcoming Encounters Date Type Department Care Team (Late st Contact Info) Description 12/05/2024 8:01 AM EDT Hospital Encounter [facility] ENDOSCOPY [address] [place] [address] Chris Orosco MD [address] [place] [phone] 12/05/2024 8:01 AM EDT - 12/05/2024 8:31 AM EDT Surgery [facility] ENDOSCOPY [address] [place] [address] Chris Orosco MD [address] [place] [phone] EGD Scheduled Procedures Name Priority Associated Diagnoses Date/Ti me EGD Cirrhosis of liver with ascites, unspecified hepatic cirrhosis type (CMS-HCC) 12/05/2024 8:01 AM EDT documented as of this encounter Visit Diagnoses Diagnosis Encounter for therapeutic drug monitoring- Primary Abdominal pain, unspecified abdominal location Cirrhosis of liver with ascites, unspecified hepatic cirrhosis type (CMS-HCC) documented in this encounter Additional Health Concerns Infection Onset Date Last Indicated Resolved Time 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
--- OUTSIDE RECORDS SUMMARY | 2024-11-11 10:30 | XMS_ITS | Encounter Summary ---
Author Organization [facility] Address [address] [place] [address] Care Team Providers Care Car Stereo Installer Name Role Phone Enedina Mcguire NP Primary Care Provider [phone] Maureen Pantoja RN Unavailable Unavail able Source [...] release of HIV test results or diagnoses. [id number] Reason for Visit * Reason Comments Kidney Transplant Follow-up Encounter Details Date Type Department Care Team (Late st Contact Info) Description 11/11/2024 10:30 AM EDT Office Visit [facility] Liver Transplant at [facility] [address] [facility] [address] [place] [address] Unknown, Attending Provider Seble Colon [address] [facility], [facility] [address] [place] [address] Kidney replaced by transplant (Primary [...] Activity: Unknown (07/14/2024) Received from [facility] Exercise Vital Sign Days of Exercise per Week: Patient unable to answer Minutes of Exercise per Session: Not on file Stress: Patient Unable To Answer (07/14/2024) Received from [facility] [place] of Occupational Health - Occupational Stress Questionnaire Feeling of Stress : Patient unable to answer Social Connections: Patient Unable To Answer (07/14/2024) Received from [facility] Social Connection and Isolation Panel [NHANES] Frequency of Communication with Friends and Family: Patient unable to answer Frequency of Social Gatherings with Friends and Family: Patient unable to answer Attends Quaker Services: Patient unable to answer Active Member [...] Lastdose 11/26/24 blood sugar diagnostic (GLUCOSE BLOOD) [facility] Use to test blood sugar up to 4 times a day. blood-glucose meter (TRUE METRIX GLUCOSE METER) [place] [...] = 12 units lancets (ACCU-CHEK SOFTCLIX LANCETS) [facility] [...] times a day. naloxone (NARCAN) 4 mg/actuation [place] Apply 1 spray in one nostril [...] Results Component Value Date PTH 36.0 10/25/2024 [id number] 7.1 (L) 10/08/2024 Hemoglobin A1C: Lab Results [...] Encounter [facility] ENDOSCOPY [address] [place] [id number] Chris Orosco MD [address] [place] [phone] 12/05/2024 8:01 AM EDT - 12/05/2024 8:31 AM EDT Surgery [facility] ENDOSCOPY [address] [place] [id number] Chris Orosco MD [address] [place] [phone] EGD Scheduled Procedures Name Priority Associated Diagnoses Date/Ti me EGD Cirrhosis of liver with ascites, unspecified hepatic cirrhosis type ([facility]) 12/05/2024 8:01 AM EDT documented as of this encounter Visit Diagnoses Diagnosis Kidney replaced by transplant- Primary Hypervolemia associated with renal insufficiency Cirrhosis of liver with ascites, unspecified hepatic cirrhosis type ([facility]) documented in this encounter Additional Health Concerns Infection Onset Date Last Indicated Resolved Time 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
--- OUTSIDE RECORDS SUMMARY | 2024-11-18 07:42 | XMS_ITS | Encounter Summary ---
Author Organization Healthcare Address [address] [place] [address] Care Team Providers Care Nuclear Auxiliary Operator Name Role Phone Jony Conde MD Primary Care Provider [phone] Lj Tapia PROPERTY DAMAGE CLAIMS ADJUSTOR Unavailable [phone] Enedina Mcguire PROPERTY DAMAGE CLAIMS ADJUSTOR Primary Care Provider + Nuria Fall PRIMARY SCHOOL TEACHER LIBRARIAN Unavailable Unavaila ble Encounter Details Date Type Department Care Team (Late Contact Info) Description 07/02/2022 Orders Only External Location [address] [place] [id number] Provider, External Social History Tobacco Use Types [...] Description 12/01/2024 2:20 PM EDT Office Visit [facility] Nephrology, Bone & Mineral Metabolism [address] , [address] [place] [address] Yovanny Curran MD [address] [place] [address] 01/08/2025 3:20 PM EDT [facility] [address] , [address] [place] [address] Vincent Braga MD [address] [place] [address] documented as of this encounter Procedures Procedure [...] on filedocumented in this encounter Care Teams Nuclear Auxiliary Operator Relationship Specialty Start Date End Date Jony Conde MD [address] [place] [address] [address] [place] [address] PCP - General 07/18/22 12/03/22 Enedina Mcguire APRN [address] [place] [address] PCP - General 12/04/22 Lj Tapia APRN [address] [place] [address] Referring Physician Gastroenterology 07/18/22 Nuria Fall LPN [facility] TCM Nurse 07/24/24 08/23/24 documented as of this encounter
--- OUTSIDE RECORDS SUMMARY | 2024-11-18 07:42 | XMS_ITS | Encounter Summary ---
Author Organization Healthcare Address [address] [place] [address] Care Team Providers Care Scada Technician Name Role Phone Laird, Lj Nova APRN Unavailable [phone] Enedina Mcguire APRN Primary Care Provider + Encounter Details Date Type Department Care Team ([facility] st Contact Info) Description 09/25/2024 Telephone [facility]ph[facility], Bone & Mineral Metabolism [address] [facility], [address] [place] [address] Chelsy Villanueva Social History Tobacco [...] often do you attend chur ch or congregation services? Patient unable to answer 07/14/2024 Do you belong to any clubs o r organizations such as adventism groups, unions, fraternal or athletic groups, or [...] Recorded Patient Health Questionnaire-2 Score 2 09/29/2024 [facility] - Occupational Stress Questionnaire Answer [...] place to sleep or slept in a retirement (including now)? No 11/19/2023 PHQ-9 Answer Date [...] living in a retirement (including now)? 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-PICKLER HELPER) to steady your nerves or to get [...] 10:35 AM EDT Lab order faxed to [facility] at [phone] * Telephone Encounter - Shelby Rush - 09/30/2024 10:16 AM EDT Clinical Concern/Question Reason for Call: Per [facility] please fax patient's lab order to: [phone] Best contact number: Other: [phone] Optimal time of day to reach caller: [...] Description 12/01/2024 2:20 PM EDT Office Visit [facility] Nephrology, Bone & Mineral Metabolism [address], [address] [place] [address] Yovanny Curran MD [address] [place] [address] 01/08/2025 3:20 PM EDT [facility] [address], [address] [place] [address] Vincent Braga MD [address] [place] [address] documented as of this encounter Visit Diagnoses Not on filedocumented in this encounter Additional Health Concerns Assessment Noted Time A fall risk assessment has been complete d for the patient 08/25/2024 2:07 PM EDT A Body Mass Index follow-up plan has been documented for the patient 08/29/2024 9:18 AM EDT documented as of this encounter Care Teams Scada Technician Relationship Specialty Start Date End Date Enedina Mcguire APRN [address] [place] [address] PCP - General 12/04/22 Lj Tapia APRN [address] [place] [address] Referring Physician Gastroenterology 07/18/22 documented as of this encounter
--- OUTSIDE RECORDS SUMMARY | 2024-11-18 07:42 | XMS_ITS | Encounter Summary ---
Author Organization Healthcare Address [address] [place] [address] Care Team Providers Care Donor Services Manager Name Role Phone Jony Conde MD Primary Care Provider [phone] Lj Tapia PUBLIC HEALTH SERVICE OFFICER Unavailable [phone] Enedina Mcguire PUBLIC HEALTH SERVICE OFFICER Primary Care Provider + Nuria Fall MICROBIOLOGICAL LAB TECHNICIAN Unavailable Unavaila ble Encounter Details Date Type Department Care Team (Late Contact Info) Description 07/04/2022 Orders Only External Location [address] [place] [address] Presley Montes De Oca MD [address] [facility] [address] [place] [id number] Social History Tobacco Use Types Packs/Day Years [...] PM EDT Office Visit [facility] Nephrology, Bone & Mineral Metabolism [address] [facility], [address] [place] [address] Yovanny Curran MD [address] [facility] [address] [place] [address] 01/08/2025 3:20 PM EDT Office Visit [facility] [place] [address] [facility], [address] [place] [address] Vincent Braga MD [address] [place] [address] documented as of this encounter [...] on filedocumented in this encounter Care Teams Donor Services Manager Relationship Specialty Start Date End Date Jony Conde MD [address] [place] [address] [address] [place] [address] PCP - General 07/18/22 12/03/22 Enedina Mcguire APRN [address] [place], [place] [address] PCP - General 12/04/22 Lj Tapia APRN [address] [place] [address] Referring Physician Gastroenterology 07/18/22 Nuria Fall LPN [facility] TCM Nurse 07/24/24 08/23/24 documented as of this encounter
--- OUTSIDE RECORDS SUMMARY | 2024-11-18 07:42 | XMS_ITS | Encounter Summary ---
Author Organization [facility] Address [address] [place] [address] Care Team Providers Care Hvac Operations Technician Name Role Phone Enedina Mcguire NP Primary Care Provider + [phone] Maureen Pantoja RN Unavailable Unavail able Source [...] release of HIV test results or diagnoses. [id number] Reason for Visit * Reason Comments Medication Refill Refill Request 1st A ttempt Encounter Details Date Type Department Care Team (Late st Contact Info) Description 10/21/2024 Refill [facility] Gastroenterology at [facility] Office [address] [place] [address] Gerri Peterson MD [address] [place] [address] Social History Tobacco Use Types Packs/Day Years Used Date Smoking Tobacco: Former Cigarettes Smokeless Tobacco: Current Alcohol Use Standard Drinks/Week Comments Yes 0 (1 standard drink = 0.6 oz pure alcohol) History of alcohol abuse, reports no use in 3 week- typically endorses use as 4 glasses of wine a days Utilities Answer Date Recorded In the past 12 months has [employer], gas, oil, or water [employer] threatened to shut off services in [...] Encounter [facility] ENDOSCOPY [address] [place] [address] Chris Orosco MD [address] [place] [address] 12/05/2024 8:01 AM EDT - 12/05/2024 8:31 AM EDT Surgery [facility] ENDOSCOPY [address] [place] [address] Chris Orosco MD [address] [place] [phone] EGD Scheduled Procedures Name Priority Associated Diagnoses [...] as of this encounter Care Teams Hvac Operations Technician Relationship Specialty Start Date End Date Enedina Mcguire NP [address] [place] [address] PCP - General Internal Medicine 10/05/24 Maureen Pantoja, ЮЛИЯ Txp Post Coordinator Transplant Hepatology 10/28/24 documented as of this encounter
--- OUTSIDE RECORDS SUMMARY | 2024-11-18 07:42 | XMS_ITS | Clinical Summary ---
Author Organization Healthcare Address [address] [place] [address] Care Team Providers Care Accounting System Expert Name Role Phone Lj Tapia Rohini RICKS Unavailable [phone] Enedina Mcguire APRN Primary Care Provider + [...] 09/29/2024 2:20 PM EDT Office Visit [facility] Nephrology, Bone & Mineral Metabolism [address] [facility], [address] [place] [address] Yovanny Flores MD NADIYA (acute kidney injury) ([facility]) (Primary Dx); Portal hypertension ([facility]); Secondary esophageal varices with bleeding ([facility]) 09/29/2024 Travel 09/25/2024 Telephone [facility] Nephrology, Bone & Mineral Metabolism [address], [address] [place] [address] Chelsy Villanueva 08/25/2024 2:20 PM EDT Office Visit [facility] Nephrology, Bone & Mineral Metabolism [address], [address] [place] [address] Kalina bell, Yovanny Nicholson MD NADIYA (acute kidney injury) ([facility]) (Primary Dx) 08/25/2024 Travel 08/24/2024 Travel 08/21/2024 Telephone [facility] Nephrology, Bone & Mineral Metabolism [address] , [address] [place] [address] Chelsy Villanueva from Last 3 [...] answer 07/14/2024 How often do you attend [facility] or jainism services? Patient unable to answer 07/14/2024 Do you belong to any clubs o r organizations such as confucianist groups, unions, fraternal or athletic groups, or [...] Recorded Patient Health Questionnaire-2 Score 2 09/29/2024 [facility] - [...] place to sleep or slept in a intermediate (including now)? No 11/19/2023 PHQ-9 Answer Date [...] living in a intermediate (including now)? No 07/14/2024 CAGE ASSESSMENT Answer [...] first t deborah in the morning (EYE-CLAIMS CUSTOMER SERVICE REPRESENTATIVE) to steady your nerves or to get rid of a hangover? 0 07/19/2024 CAGE Questionnaire Score 2 025 Utilities Answer Date Recorded In the past 12 months has th e electric, gas, oil, or water [employer] threatened to shut off services in your [...] 12/01/2024 2:20 PM EDT Office Visit [facility] Nephrology, Bone & Mineral Metabolism [address], [address] [place] [address] Yovanny Curran MD [address] [place] [address] 01/08/2025 3:20 PM EDT [facility] [address], [address] [place] [address] Vincent Braga MD [address] [place] [address] Health Maintenance Due Date Last [...] 2 - 13+ 2-dose series) 10/11/2010 09/13/2010 [id number] Vaccine (4 - 2023- season) 2024 03/17/2021, [...] this topic Medical Devices Implanted Type Area Glass Forming Engineer Device Identifier Shelf Expiration Date Model / Serial / Lot Concerto Minong Coil-07/03/2022 Implanted:06/15 by Timmy Brunner MD (Quantity not on file) Coil Abdomen Description:Multiple Coil Co ncerto Pgla Minong Detach COILS implanted on 07/03/2022 by Timmy Brunner MD at [facility]--info can be found in Care Everywhere for [facility] as of 11/15/23 Dona Coil-07/03/2022 Implanted:06/15 by Timmy Brunner MD (Quantity not on file) Coil Abdomen [employer] Description:Coil Emb Dona 3.7/Implanted: Qty: 1 on 07/03/2022 by Timmy Brunner MD at [facility] Plate Plate N/A: Neck Plug Vasc Anton Emb Amplatzer Implanted:06/15 by Timmy Brunner MD (Quantity not on file) Plug Other Vein / / [id number] Description:Plug Vasc Anton Em b Ampltz .027 [id number] - [id number] Implanted: Qty: 1 on 07/03/2022 by Timmy Brunner MD at [facility] Stent Gastro Panc 5fr 5cm - [id number] Implanted:Qty: 1 on 11/20/2023 by Devang Mcghee, RN at [facility] Pancreas [employer]-[id number] 08/13/2026 [id number] / / [id number] Procedures Procedure Name Priority Date/Time Associated Diagnosis [...] Reactive Non Reactive 07/14/2024 5:31 PM EST [facility] Comment:Screening for HIV 1 & 2 antibodies, and P24 antigen is NONREACTIVE. No confirmatory testing is required. Blood Venous blood specimen / Unknown Venipuncture / Unknown 07/14/2024 4:31 PM EST 07/14/2024 4:56 PM EST Laureano Salinas APRN, [facility] BLOOD ORDERA BLES Final Result Performing Organization Address City/[facility] Co de Phone Number [facility] [address] [place] [address] * Hepatitis C Antibody (07/14/2024 4:31 PM EST) [facility] Signature Hepatitis C Antibody Negative Negative 07/14/2024 5:27 PM EST [facility] Blood Venous blood specimen / Unknown Venipuncture / Unknown 07/14/2024 4:31 PM EST 07/14/2024 4:54 PM EST Laureano Salinas APRN, [facility] BLOOD ORDERA BLES Final Result Performing Organization Address City/[facility] de Phone Number [facility] [address] [place] [address] from Last 3 Months or Most Recently Relevant to Health Maintenance Insurance [facility] Advance Directives * Full Code (Latest Code Status on File) Date Activated Date Inactivated Comments 07/11/2024 11:04 PM 07/23/2024 6:27 PM Question Answer Comments Patient has decision-making capacity? Yes * Full Code Date Activated Date Inactivated Comments 11/14/2023 10:15 PM 11/27/2023 9:08 PM Question Answer Comments Patient has decision-making capacity? Yes Care Teams Accounting System Expert Relationship Specialty Start Date End Date Enedina Mcguire APRN [address] [place] [address] PCP - General 12/04/22 Lj Tapia APRN [address] [place] [address] Referring Physician Gastroenterology 07/18/22
--- OUTSIDE RECORDS SUMMARY | 2024-11-18 07:42 | XMS_ITS | Encounter Summary ---
Author Organization Healthcare Address [address] [place] [address] Care Team Providers Care Statement Clerks Manager Name Role Phone Jony Conde MD Primary Care Provider [phone] Lj Tapia MEDTRONICS TECHNICIAN Unavailable [phone] Enedina Mcguire MEDTRONICS TECHNICIAN Primary Care Provider + Nuria Fall TRANSPLANT SURGEON Unavailable Unavaila ble Encounter Details Date Type Department Care Team (Late Contact Info) Description 07/04/2022 Orders Only External Location [address] [place] [address] Presley Montes De Oca MD [address] [facility] [address] [place] [id number] Social History Tobacco Use Types Packs/Day Years [...] 2:20 PM EDT Office Visit Professional [facility] Nephrology, Bone & Mineral Metabolism [address] [facility], [address] [place] [address] Yovanny Curran MD [address] [facility] [address] [place] [address] 01/08/2025 3:20 PM EDT Office [facility] [place] [address] [facility], [address] [place] [address] Vincent Braga MD [address] [place] [address] documented as of this encounter [...] on filedocumented in this encounter Care Teams Statement Clerks Manager Relationship Specialty Start Date End Date Jony Conde MD [address] [place] [address] [address] [place] [address] PCP - General 07/18/22 12/03/22 Enedina Mcguire APRN [address] [place], [place] [phone] PCP - General 12/04/22 Lj Tapia APRN [address] [place] [address] Referring Physician Gastroenterology 07/18/22 Nuria Fall LPN [facility] TCM Nurse 07/24/24 08/23/24 documented as of this encounter
--- OUTSIDE RECORDS SUMMARY | 2024-11-18 07:42 | XMS_ITS | Encounter Summary ---
Author Organization [facility] Address [address] [place] [address] Care Team Providers Care Electrical Machine Builder Name Role Phone Enedina Mcguire NP Primary Care Provider [phone] Maureen Pantoja RN Unavailable Unavail able Source [...] release of HIV test results or diagnoses. [id number] Reason for Visit * Reason Comments Medication Management Requesting RX for New Medication Encounter Details Date Type Department Care Team (Late st Contact Info) Description 10/21/2024 Telephone [facility] G[facility]ology at [facility] [address] [place] [address] Gerri Peterson MD [address] [place] [address] Medication Management (Requesting RX for [...] In the past 12 months has th [employer], oil, or [employer] threatened to shut off services in your [...] Pt called. States he was discharged from [facility] on 10/17 with instructions to contact PCP to start Rx Torsemide 20 mg one tablet a day. PCP is out of town and was advised by campus manager in office to contact gastro MD to obtain Rx. Pt states he is retaining 30 pounds of fluid and needs MD to send a prescription or return call dali. Pt can be reached at [phone] documented in this encounter Plan of Treatment Upcoming Encounters Date Type Department Care Team (Late st Contact Info) Description 12/05/2024 8:01 AM EDT Hospital Encounter [facility] ENDOSCOPY [address] [place] [address] Chris Orosco MD [address] [place] [phone] 12/05/2024 8:01 AM EDT - 12/05/2024 8:31 AM EDT Surgery [facility] ENDOSCOPY [address] [place] [address] Chris Orosco MD [address] [place] [address] EGD Scheduled Procedures Name Priority Associated Diagnoses Date/Ti me EGD Cirrhosis of liver with ascites, unspecified hepatic cirrhosis type ([facility]) 12/05/2024 8:01 AM EDT documented [...] as of this encounter Care Teams Electrical Machine Builder Relationship Specialty Start Date End Date Enedina Mcguire NP [address] [place] [address] PCP - General Internal Medicine 10/05/24 Maureen Pantoja, RN Txp Post Coordinator Transplant Hepatology 10/28/24 documented as of this encounter
--- OUTSIDE RECORDS SUMMARY | 2024-11-18 07:42 | XMS_ITS | Encounter Summary ---
Author Organization Healthcare Address [address] [place] [address] Care Team Providers Care Brass Wind Instrument Maker Name Role Phone Jony Conde MD Primary Care Provider [phone] Lj Tapia THREAD SPOOLER Unavailable [phone] Enedina Mcguire THREAD SPOOLER Primary Care Provider + Nuria Fall BAG SEWER Unavailable Unavaila ble Encounter Details Date Type Department Care Team (Late Contact Info) Description 07/03/2022 Orders Only External Location [address] [place] [address] Presley Montes De Oca MD [address] [place] [phone] Social History Tobacco Use Types Packs/Day Years [...] 12/01/2024 2:20 PM EDT Office Visit [facility] Nephrology, Bone & Mineral Metabolism [address] [facility], [address] [place] [address] Yovanny Curran MD [address] [facility] [place] [address] [place] [address] 01/08/2025 3:20 PM EDT Office Visit [facility] [place] [address] [facility], [address] [place] [address] Vincent Braga MD [address] [place] [address] documented as of this encounter [...] on filedocumented in this encounter Care Teams Brass Wind Instrument Maker Relationship Specialty Start Date End Date Jony Conde MD [address] [place] [address] [address] [place] [address] PCP - General 07/18/22 12/03/22 Enedina Mcguire APRN [address] [place] [address] PCP - General 12/04/22 Lj Tapia APRN [address] [place] [address] Referring Physician Gastroenterology 07/18/22 Nuria Fall LPN [facility] TCM Nurse 07/24/24 08/23/24 documented as of this encounter
--- OUTSIDE RECORDS SUMMARY | 2024-11-18 07:42 | XMS_ITS | Encounter Summary ---
Author Organization [facility] Address [address] [place] [address] Care Team Providers Care Human Geography Instructor Name Role Phone Paisano ParkLj dixno Rohini RICKS Unavailable Enedina Mcguire APRN Primary [...] How often do you attend chur or zoroastrianism services? Patient unable to answer 07/14/2024 Do you belong to any clubs o r organizations such as baptism groups, unions, fraternal or athletic groups, or [...] Recorded Patient Health Questionnaire-2 Score 2 09/29/2024 [facility] - Occupational [...] place to sleep or slept in a long-term (including now)? No 11/19/2023 PHQ-9 Answer Date [...] living in a long-term (including now)? 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-LIQUID NATURAL GAS PLANT OPERATOR) to steady your nerves or to [...] Description 12/01/2024 2:20 PM EDT Office Visit [facility] [employer] [place] Nephrology, Bone & Mineral Metabolism [address], [address] [place] [address] Yovanny Curran MD [address] [place] [address] 01/08/2025 3:20 PM EDT [facility] Visit [facility] [place] [address] [facility], [address] [place] [address] Vincent Braga MD [address] [place] [address] documented as of this encounter [...] as of this encounter Care Teams Human Geography Instructor Relationship Specialty Start Date End Date Enedina Mcguire APRN [address] [place] [address] PCP - General 12/04/22 Lj Tapia APRN [address] [place] [address] Referring Physician Gastroenterology 07/18/22 documented as of this encounter
--- OUTSIDE RECORDS SUMMARY | 2024-11-18 07:43 | XMS_ITS | Encounter Summary ---
Author Organization [facility] Address [address] [place] [address] Care Team Providers Care Casing Blower Name Role Phone Enedina Mcguire NP Primary Care Provider [phone] Maureen Pantoja RN Unavailable Unavail able Source [...] release of HIV test results or diagnoses. [id number] Health Encounter Details Date Type Department Care Team (Late st Contact Info) Description 11/10/2024 Orders Only [facility] Liver Transplant at [address] [place] [address] Maureen Pantoja, RN Social History Tobacco Use Types Packs/Day Years Used Date Smoking Tobacco: Former Cigarettes Smokeless Tobacco: Current Alcohol Use Standard Drinks/Week Comments Yes 0 (1 standard drink = 0.6 oz pure alcohol) History of alcohol abuse, reports no use in 3 week- typically endorses use as 4 glasses of wine a days Utilities Answer Date Recorded In the past 12 months has [employer], gas, oil, or water [employer] threatened to shut off services in your [...] Encounter [facility] ENDOSCOPY [address] [place] [address] Chris Orosco MD [address] [place] [phone] 12/05/2024 8:01 AM EDT - 12/05/2024 8:31 AM EDT Surgery [facility] ENDOSCOPY [address] [place] [address] Chris Orosco MD [address] [place] [phone] EGD Scheduled Procedures Name Priority Associated Diagnoses [...] as of this encounter Care Teams Casing Blower Relationship Specialty Start Date End Date Enedina Mcguire NP [address] [place] [address] PCP - General Internal Medicine 10/05/24 Maureen Pantoja, ЮЛИЯ Txp Post Coordinator Transplant Hepatology 10/28/24 documented as of this encounter
--- OUTSIDE RECORDS SUMMARY | 2024-11-18 07:43 | XMS_ITS | Encounter Summary ---
Author Organization [facility] Address [address] [place] [address] Care Team Providers Care Mh Teacher Name Role Phone Enedina Mcguire NP Primary Care Provider [phone] Source Comments This information has been disclosed [...] release of HIV test results or diagnoses. [id number] Encounter Details Date Type Department Care Team (Late st Contact Info) Description 10/17/2024 Chart Note [facility] Kidney Transplant at [address] [place] [phone] Anny Cote RN Social History Tobacco Use [...] Recorded In the past 12 months has [employer], gas, oil, or water [employer] threatened to shut off services in [...] [facility] ENDOSCOPY [address] [place] [phone] Chris Orosco MD [address] [place] [phone] 12/05/2024 8:01 AM EDT - 12/05/2024 8:31 AM EDT Surgery [facility] ENDOSCOPY [address] [place] [phone] Chris Orosco MD [address] [place] [phone] EGD Scheduled Procedures Name Priority Associated Diagnoses Date/Ti me EGD Cirrhosis of liver with ascites, unspecified hepatic cirrhosis type ([facility]) 12/05/2024 8:01 AM EDT documented as of this encounter Visit Diagnoses Not on filedocumented in this encounter Additional Health Concerns Infection Onset Date Last Indicated Resolved Time C. difficile 09/09/2024 09/09/2024 10/27/2024 8:30 AM EDT Assessment Noted Time PHQ-9 Depression Total Score: 17 05/ 025 11:00 AM EDT documented as of this encounter Care Teams Mh Teacher Relationship Specialty Start Date End Date Enedina Mcguire NP [address] [place] [address] PCP - General Internal Medicine 10/05/24 documented as of this encounter
--- OUTSIDE RECORDS SUMMARY | 2024-11-18 07:43 | XMS_ITS | Encounter Summary ---
Author Organization [facility] Address [address] [place] [address] Care Team Providers Care Pizzamaker Name Role Phone Enedina Mcguire NP Primary Care Provider [phone] Source Comments This information has been disclosed [...] release of HIV test results or diagnoses. [id number] Encounter Details Date Type Department Care Team (Late st Contact Info) Description 10/17/2024 Chart Note [facility] Kidney Transplant at [address] [place] [phone] Anny Cote, RN Copy of HLA [...] In the past 12 months has [employer], gas, oil, or water [employer] threatened to shut off services in your [...] 8:01 AM EDT Hospital Encounter [facility] ENDOSCOPY [address] [place] [address] Chris Orosco MD [address] [place] [phone] 12/05/2024 8:01 AM EDT - 12/05/2024 8:31 AM EDT Surgery [facility] ENDOSCOPY [address] [place] [address] Chris Orosco MD [address] [place] [phone] EGD Scheduled Procedures Name Priority Associated Diagnoses [...] documented as of this encounter Care Teams Pizzamaker Relationship Specialty Start Date End Date Enedina Mcguire NP [address] [place] [address] PCP - General Internal Medicine 10/05/24 documented as of this encounter
--- OUTSIDE RECORDS SUMMARY | 2024-11-18 07:43 | XMS_ITS | Encounter Summary ---
Author Organization [facility] Address [address] [place] [address] Care Team Providers Care Sorter Lumber Straightener Name Role Phone Enedina Mcguire NP Primary Care Provider + [phone] Maureen Pantoja RN Unavailable Unavail able Source [...] release of HIV test results or diagnoses. [id number] Health Encounter Details Date Type Department Care Team (Late st Contact Info) Description 11/10/2024 Orders Only [facility] Liver Transplant at [address] [place] [phone] Maureen Pantoja, ЮЛИЯ Liver transplant recipient ([facility]) (Primary Dx); Kidney transplant recipient; Immunosuppressive management encounter following liver transplant ([facility]) Social History Tobacco Use Types Packs/Day Years Used Date Smoking Tobacco: Former Cigarettes Smokeless Tobacco: Current Alcohol Use Standard Drinks/Week Comments Yes 0 (1 standard drink = 0.6 oz pure alcohol) History of alcohol abuse, reports no use in 3 week- typically endorses use as 4 glasses of wine a days Utilities Answer Date Recorded In the past 12 months has [employer], gas, oil, or water [employer] threatened to shut off services in your [...] Hospital Encounter [facility] ENDOSCOPY [address] [place] [address] Chris Orosco MD [address] [place] [phone] 12/05/2024 8:01 AM EDT - 12/05/2024 8:31 AM EDT Surgery [facility] ENDOSCOPY [address] [place] [address] Chris Orosco MD [address] [place] [phone] EGD Scheduled Procedures Name Priority Associated Diagnoses [...] documented as of this encounter Care Teams Sorter Lumber Straightener Relationship Specialty Start Date End Date Enedina Mcguire NP [address] [place] [address] PCP - General Internal Medicine 10/05/24 Maureen Pantoja, ЮЛИЯ Txp Post Coordinator Transplant Hepatology 10/28/24 documented as of this encounter
--- OUTSIDE RECORDS SUMMARY | 2024-11-18 07:45 | XMS_ITS | Encounter Summary ---
Author Organization [facility] Address [facility] [place] [address] Care Team Providers Care Boat Detailer Name Role Phone Enedina Mcguire NP Primary Care Provider + [phone] Maureen Pantoja RN Unavailable Unavail able Source [...] release of HIV test results or diagnoses. [id number] Health Encounter Details Date Type Department Care Team (Late st Contact Info) Description 10/31/2024 Orders Only [facility] Liver Transplant at [facility] [address] [facility] [address] [place] [address] Harvey Domínguez III, MD [address] [place] [address] [address] [place] [address] Liver replaced by transplant ([facility]) (Primary Dx); Immunosuppressive management encounter following liver transplant ([facility]) Social History Tobacco Use Types Packs/Day [...] past 12 months has th e electric, [employer], or water [employer] threatened to shut off services in [...] Description 12/05/2024 8:01 AM EDT Hospital Encounter [facility] ENDOSCOPY [address] [place] [address] Chris Orosco MD [address] [place] [phone] 12/05/2024 8:01 AM EDT - 12/05/2024 8:31 AM EDT Surgery [facility] ENDOSCOPY [address] [place] [phone] Chris Orosco MD [address] [place] [phone] EGD Scheduled Orders Name Type Priority Associated [...] - 80.0 % 11/11/2024 10:31 AM EDT [facility] Lymphocytes Relative 17.6 15.0 - 45.0 % 11/11/2024 10:31 AM EDT [facility] Monocytes Relative 8.5 0.0 - 12.0 % 11/11/2024 10:31 AM EDT [facility] Eosinophils Relative 2.0 0.0 - 8.0 % 11/11/2024 10:31 AM EDT [facility] Basophils Relative 2.6(H) 0.0 - 1.0 % 11/11/2024 10:31 AM EDT [facility] nRBC 0 0 - 0 /100 WBC 11/11/2024 10:31 AM EDT [facility] Neutrophils Absolute 4,920 1,520 - 8,640 /uL 11/11/2024 10:31 AM EDT [facility] Lymphocytes Absolute 1,250 570 - 4,860 /uL 11/11/2024 10:31 AM EDT [facility] Monocytes Absolute 604 0 - 1,296 /uL 11/11/2024 10:31 AM EDT [facility] Eosinophils Absolute 142 0 - 864 /uL 11/11/2024 10:31 AM EDT [facility] Basophils Absolute 185(H) 0 - 108 /uL 11/11/2024 10:31 AM EDT [facility] Whole Blood 11/11/2024 9:13 AM EDT 11/11/2024 10:19 AM EDT Narrative [facility]ALTH [facility] - 11/11/2024 10:31 AM EDT Standing orders to be drawn: Every Sunday and before 9am and prior to patient taking morning medications. Liver Transplant Fax results to [phone] Call Critical results to [phone] us Harvey Domínguez III, MD LAB BLOOD ORDERABLE S Final Result [facility] [address] [place] [address], [facility] * (ABNORMAL) CBC (11/11/2024 9:13 AM EDT) WBC 7.1 3.8 - 10.8 10E3/uL 11/11/2024 10:31 AM EDT [facility] RBC 3.42(L) 4.20 - 5.80 10E6/uL 11/11/2024 10:31 AM EDT [facility] Hemoglobin 10.6(L) 13.2 - 17.1 g/dL 11/11/2024 10:31 AM EDT [facility] Hematocrit 31.3(L) 38.5 - 50.0 % 11/11/2024 10:31 AM EDT [facility] MCV 91.5 80.0 - 100.0 fL 11/11/2024 10:31 AM EDT [facility] MCH 31.0 27.0 - 33.0 pg 11/11/2024 10:31 AM EDT [facility] MCHC 33.8 32.0 - 36.0 g/dL 11/11/2024 10:31 AM EDT [facility] RDW 20.5(H) 11.0 - 15.0 % 11/11/2024 10:31 AM EDT [facility] Platelets 308 140 - 400 10E3/uL 11/11/2024 10:31 AM EDT [facility] MPV 6.1(L) 7.5 - 11.5 fL 11/11/2024 10:31 AM EDT [facility] Whole Blood 11/11/2024 9:13 AM EDT 11/11/2024 10:19 AM EDT Narrative [facility] - 11/11/2024 10:31 AM EDT Standing orders to be drawn: Every Sunday and before 9am and prior to patient taking morning medications. Liver Transplant Fax results to [phone] Call Critical results to [phone] us Harvey Domínguez III, MD LAB BLOOD ORDERABLE S Final Result [facility] [address] [place] [address], [facility] * (ABNORMAL) Renal Function Panel w/EGFR (11/11/2024 9:13 AM EDT) Sodium 141 133 - 146 mmol/L 11/11/2024 10:51 AM EDT [facility] Potassium 4.6 3.5 - 5.3 mmol/L 11/11/2024 10:51 AM EDT [facility] Chloride 108 98 - 110 mmol/L 11/11/2024 10:51 AM EDT [facility] CO2 24 21 - 33 mmol/L 11/11/2024 10:51 AM EDT [facility] Anion Gap 9 3 - 16 mmol/L 11/11/2024 10:51 AM EDT [facility] BUN 27(H) 7 - 25 mg/dL 11/11/2024 10:51 AM EDT [facility] Creatinine 1.14 0.60 - 1.30 mg/dL 11/11/2024 10:51 AM EDT [facility] Glucose 97 70 - 100 mg/dL 11/11/2024 10:51 AM EDT [facility] Calcium 8.6 8.6 - 10.3 mg/dL 11/11/2024 10:51 AM EDT [facility] Phosphorus 4.4 2.1 - 4.7 mg/dL 11/11/2024 10:51 AM EDT [facility] Albumin 3.8 3.5 - 5.7 g/dL 11/11/2024 10:51 AM EDT [facility] Osmolality, Calculated 297 278 - 305 mOsm/kg 11/11/2024 10:51 AM EDT [facility] EGFR 83 11/11/2024 10:51 AM EDT [facility] Comment:As of 2021, the estimated [...] morning medications. Liver Transplant Fax results to [phone] Call Critical results to [phone] DO NOT REPLACE RENAL PANEL or HEPATIC FUNCTION PANEL w/ CMP, BMP or HEPATIC PROFILE us Harvey Domínguez III, MD LAB BLOOD ORDERABLE S Final Result [facility] [address] [place] [address], [facility] * (ABNORMAL) Hepatic Function Panel (11/11/2024 9:13 AM EDT) Total Bilirubin 1.0 0.0 - 1.5 mg/dL 11/11/2024 10:51 AM EDT [facility] Bilirubin, Direct 0.39 0.00 - 0.40 mg/dL 11/11/2024 10:51 AM EDT [facility] AST 15 13 - 39 U/L 11/11/2024 10:51 AM EDT [facility] ALT 26 7 - 52 U/L 11/11/2024 10:51 AM EDT [facility] Alkaline Phosphatase 125 36 - 125 U/L 11/11/2024 10:51 AM EDT [facility] Total Protein 5.9(L) 6.4 - 8.9 g/dL 11/11/2024 10:51 AM EDT [facility] Albumin 3.8 3.5 - 5.7 g/dL 11/11/2024 10:51 AM EDT [facility] Bilirubin, Indirect 0.61 0.00 - 1.10 mg/dL 11/11/2024 10:51 AM EDT [facility] Plasma 11/11/2024 9:13 AM EDT 11/11/2024 10:19 AM EDT [facility] - 11/11/2024 10:51 AM EDT Standing orders to be drawn: Every Sunday and before 9am and prior to patient taking morning medications. Liver Transplant Fax results to [phone] Call Critical results to [phone] DO NOT REPLACE RENAL PANEL or HEPATIC FUNCTION PANEL w/ CMP, BMP or HEPATIC PROFILE Harvey Domínguez III, MD LAB BLOOD ORDERABLE S Final Result [facility] [address] * Tacrolimus level (11/11/2024 9:13 AM EDT) Tacrolimus (LC-MS) 10.4 3.0 - 15.0 ng/mL 11/11/2024 1:22 PM EDT [facility] Comment:Performed via liquid chromatography tandem mass spectrometry. Detection limit: 1 ng/mL. Individual target concentrations may vary due to target organ and time after transplant. This test has been developed and its performance characteristics determined by [facility] which is certified under the [...] AM EDT 11/11/2024 10:19 AM EDT Narrative [facility] - 11/11/2024 1:22 PM EDT Standing orders to be drawn: Every Sunday and Thursday before 9am and prior to patient taking morning medications. Liver Transplant Fax results to [phone] Call Critical results to [phone] us Harvey Domínguez III, MD LAB BLOOD ORDERABLE S Final Result [facility] [address] [place] [address], [facility] * (ABNORMAL) Differential (11/04/2024 8:46 AM EDT) Differential Comments See Note 11/05/2024 12:05 AM EDT [facility] Comment: _Platelets Appear Decreased _Platelet Morphology Normal Myelocytes Relative 3.0(H) 0.0 - 0.0 % 11/05/2024 12:05 AM EDT [facility] Neutrophils Relative 73.0 40.0 - 80.0 % 11/05/2024 12:05 AM EDT [facility] Lymphocytes Relative 17.0 15.0 - 45.0 % 11/05/2024 12:05 AM EDT [facility] Monocytes Relative 6.0 0.0 - 12.0 % 11/05/2024 12:05 AM EDT [facility] Eosinophils Relative 1.0 0.0 - 8.0 % 11/05/2024 12:05 AM EDT [facility] Basophils Relative 0.0 0.0 - 1.0 % 11/05/2024 12:05 AM EDT [facility] Neutrophils Absolute 5,256 1,520 - 8,640 /uL 11/05/2024 12:05 AM EDT [facility] Myelocytes Absolute 216(H) 0 - 0 /uL 11/05/2024 12:05 AM EDT [facility] Lymphocytes Absolute 1,224 570 - 4,860 /uL 11/05/2024 12:05 AM EDT [facility] Monocytes Absolute 432 0 - 1,296 /uL 11/05/2024 12:05 AM EDT [facility] Eosinophils Absolute 72 0 - 864 /uL 11/05/2024 12:05 AM EDT [facility] Basophils Absolute 0 0 - 108 /uL 11/05/2024 12:05 AM EDT [facility] PLT Morphology Platelet morphology appears normal 11/05/2024 12:05 AM EDT [facility] Whole Blood 11/04/2024 8:46 AM EDT 11/04/2024 11:01 PM EDT Narrative [facility] - 11/05/2024 12:05 AM EDT Standing orders to be drawn: Every Sunday and before 9am and prior to patient taking morning medications. Liver Transplant Fax results to [phone] Call Critical results to [phone] Manual WBC differential performed per review criteria approved by the medical pathologist. us Harvey Domínguez III, MD LAB BLOOD ORDERABLE S Final Result [facility] [address] [place] [address], [facility] * (ABNORMAL) CBC (11/04/2024 8:46 AM EDT) WBC 7.2 3.8 - 10.8 10E3/uL 11/05/2024 12:05 AM EDT [facility] RBC 3.17(L) 4.20 - 5.80 10E6/uL 11/05/2024 12:05 AM EDT [facility] Hemoglobin 9.7(L) 13.2 - 17.1 g/dL 11/05/2024 12:05 AM EDT [facility] Hematocrit 28.6(L) 38.5 - 50.0 % 11/05/2024 12:05 AM EDT [facility] MCV 90.2 80.0 - 100.0 fL 11/05/2024 12:05 AM EDT [facility] MCH 30.5 27.0 - 33.0 pg 11/05/2024 12:05 AM EDT [facility] MCHC 33.8 32.0 - 36.0 g/dL 11/05/2024 12:05 AM EDT [facility] RDW 17.9(H) 11.0 - 15.0 % 11/05/2024 12:05 AM EDT [facility] Platelets 137(L) 140 - 400 10E3/uL 11/05/2024 12:05 AM EDT [facility] Platelet Estimate Decreased 11/05/2024 12:05 AM EDT [facility] MPV 8.4 7.5 - 11.5 fL 11/05/2024 12:05 AM EDT [facility] Whole Blood 11/04/2024 8:46 AM EDT 11/04/2024 11:01 PM EDT Narrative [facility] - 11/05/2024 12:05 AM EDT Standing orders to be drawn: Every Sunday and before 9am and prior to patient taking morning medications. Liver Transplant Fax results to [phone] Call Critical results to [phone] Peripheral blood smear was scanned per review criteria approved by the laboratory medical pathologist. us Harvey Domínguez III, MD LAB BLOOD ORDERABLE S Final Result [facility] [address] [place] [address], [facility] * (ABNORMAL) Renal Function Panel w/EGFR (11/04/2024 8:46 AM EDT) Sodium 139 133 - 146 mmol/L 11/04/2024 10:06 AM EDT [facility] Potassium 3.8 3.5 - 5.3 mmol/L 11/04/2024 10:06 AM EDT [facility] Chloride 106 98 - 110 mmol/L 11/04/2024 10:06 AM EDT [facility] CO2 25 21 - 33 mmol/L 11/04/2024 10:06 AM EDT [facility] Anion Gap 8 3 - 16 mmol/L 11/04/2024 10:06 AM EDT [facility] BUN 34(H) 7 - 25 mg/dL 11/04/2024 10:06 AM EDT [facility] Creatinine 1.08 0.60 - 1.30 mg/dL 11/04/2024 10:06 AM EDT [facility] Glucose 92 70 - 100 mg/dL 11/04/2024 10:06 AM EDT [facility] Calcium 7.8(L) 8.6 - 10.3 mg/dL 11/04/2024 10:06 AM EDT [facility] Phosphorus 1.9(L) 2.1 - 4.7 mg/dL 11/04/2024 10:06 AM EDT [facility] Albumin 3.5 3.5 - 5.7 g/dL 11/04/2024 10:06 AM EDT [facility] Osmolality, Calculated 295 278 - 305 mOsm/kg 11/04/2024 10:06 AM EDT [facility] EGFR 88 11/04/2024 10:06 AM EDT [facility] Comment:As of 2021, the estimated [...] AM EDT 11/04/2024 9:32 AM EDT Narrative [facility] - 11/04/2024 10:06 AM EDT Standing orders to be drawn: Every Sunday and before 9am and prior to patient taking morning medications. Liver Transplant Fax results to [phone] Call Critical results to [phone] DO NOT REPLACE RENAL PANEL or HEPATIC FUNCTION PANEL w/ CMP, BMP or HEPATIC PROFILE us Harvey Domínguez III, MD LAB BLOOD ORDERABLE S Final Result [facility] [address] [place], [place] [address] * (ABNORMAL) Hepatic Function Panel (11/04/2024 8:46 AM EDT) Total Bilirubin 1.3 0.0 - 1.5 mg/dL 11/04/2024 10:06 AM EDT [facility] Bilirubin, Direct 0.57(H) 0.00 - 0.40 mg/dL 11/04/2024 10:06 AM EDT [facility] AST 20 13 - 39 U/L 11/04/2024 10:06 AM EDT [facility] ALT 67(H) 7 - 52 U/L 11/04/2024 10:06 AM EDT [facility] Alkaline Phosphatase 133(H) 36 - 125 U/L 11/04/2024 10:06 AM EDT [facility] Total Protein 5.4(L) 6.4 - 8.9 g/dL 11/04/2024 10:06 AM EDT [facility] Albumin 3.5 3.5 - 5.7 g/dL 11/04/2024 10:06 AM EDT [facility] Bilirubin, Indirect 0.73 0.00 - 1.10 mg/dL 11/04/2024 10:06 AM EDT [facility] Plasma 11/04/2024 8:46 AM EDT 11/04/2024 9:32 AM EDT Narrative [facility] - 11/04/2024 10:06 AM EDT Standing orders to be drawn: Every Sunday and before 9am and prior to patient taking morning medications. Liver Transplant Fax results to [phone] Call Critical results to [phone] DO NOT REPLACE RENAL PANEL or HEPATIC FUNCTION PANEL w/ CMP, BMP or HEPATIC PROFILE Harvey Domínguez III, MD LAB BLOOD ORDERABLE S Final Result [facility] [address] * Tacrolimus level (11/04/2024 8:46 AM EDT) Tacrolimus (LC-MS) 9.0 3.0 - 15.0 ng/mL 11/04/2024 3:14 PM EDT [facility] Comment:Performed via liquid chromatography tandem mass spectrometry. Detection limit: 1 ng/mL. Individual target concentrations may vary due to target organ and time after transplant. This test has been developed and its performance characteristics determined by [facility] which is certified under the [...] morning medications. Liver Transplant Fax results to [phone] Call Critical results to [phone] Harvey Domínguez III, MD LAB BLOOD ORDERABLE S Final Result [facility] [address] [place] [address] documented in this encounter Visit Diagnoses [...] documented as of this encounter Care Teams Boat Detailer Relationship Specialty Start Date End Date Enedina Mcguire NP [address] [place] [address] PCP - General Internal Medicine 10/05/24 Maureen Pantoja, ЮЛИЯ Txp Post Coordinator Transplant Hepatology 10/28/24 documented as of this encounter
--- OUTSIDE RECORDS SUMMARY | 2024-11-18 07:45 | XMS_ITS | Encounter Summary ---
Author Organization [facility] Address [address] [place] [address] Care Team Providers Care Research Associate Quality Control Qc Name Role Phone Enedina Mcguire NP Primary Care Provider [phone] Source Comments This information has been disclosed [...] release of HIV test results or diagnoses. [id number] Reason for Visit * Reason Comments Prescription Issue RX Clarification Req uest Encounter Details Date Type Department Care Team (Late st Contact Info) Description 10/20/2024 Telephone [facility] Gastroenterology at [facility] Office [address] [place] [address] Gerri Peterson MD [address] [place] [address] Prescription Issue (RX Clarification Request [...] Recorded In the past 12 months has [employer], gas, oil, or water [employer] threatened to shut off services in [...] to be filled Please return call to [phone]. documented in this encounter Plan of Treatment Upcoming Encounters Date Type Department Care Team (Late st Contact Info) Description 12/05/2024 8:01 AM EDT Hospital Encounter [facility] ENDOSCOPY [address] [place] [phone] Chris Orosco MD [address] [place] [phone] 12/05/2024 8:01 AM EDT - 12/05/2024 8:31 AM EDT Surgery [facility] ENDOSCOPY [address] [place] [address] Chris Orosco MD [address] [place] [phone] EGD Scheduled Procedures Name Priority Associated Diagnoses Date/Ti me EGD Cirrhosis of liver with ascites, unspecified hepatic cirrhosis type ([facility]) 12/05/2024 8:01 AM EDT documented as of this encounter Visit Diagnoses Not on filedocumented in this encounter Additional Health Concerns Infection Onset Date Last Indicated Resolved Time C. difficile 09/09/2024 09/09/2024 10/27/2024 8:30 AM EDT Assessment Noted Time PHQ-9 Depression Total Score: 17 025 11:00 AM EDT documented as of this encounter Care Teams Research Associate Quality Control Qc Relationship Specialty Start Date End Date Enedina Mcguire NP [address] [place] [address] PCP - General Internal Medicine 10/05/24 documented as of this encounter
--- OUTSIDE RECORDS SUMMARY | 2024-11-18 07:45 | XMS_ITS | Encounter Summary ---
Author Organization [facility] Address [address] [place] [address] Care Team Providers Care Television News Video Editor Name Role Phone Enedina Mcguire NP Primary Care Provider + [phone] Maureen Pantoja RN Unavailable Unavail able Source [...] release of HIV test results or diagnoses. [id number] Health Encounter Details Date Type Department Care Team (Late st Contact Info) Description 11/04/2024 Nutrition [facility] Kidney Transplant at [address] [place] [phone] Ben Weiss, DMITRY Social History Tobacco Use [...] Recorded In the past 12 months has [employer], gas, oil, or water [employer] threatened to shut off services in your [...] Description 12/05/2024 8:01 AM EDT Hospital Encounter [facility] ENDOSCOPY [address] [place] [address] Chris Orosco MD [address] [place] [phone] 12/05/2024 8:01 AM EDT - 12/05/2024 8:31 AM EDT Surgery [facility] ENDOSCOPY [address] [place] [address] Chris Orosco MD [address] [place] [phone] EGD Scheduled Procedures Name Priority Associated Diagnoses [...] as of this encounter Care Teams Television News Video Editor Relationship Specialty Start Date End Date Enedina Mcguire NP [address] [place] [address] PCP - General Internal Medicine 10/05/24 Maureen Pantoja, ЮЛИЯ Txp Post Coordinator Transplant Hepatology 10/28/24 documented as of this encounter
--- OUTSIDE RECORDS SUMMARY | 2024-11-18 07:45 | XMS_ITS | Encounter Summary ---
Author Organization [facility] Address [facility] [place] [address] Care Team Providers Care Middle [employer] Guidance Counselor Name Role Phone Enedina Mcguire NP Primary Care Provider [phone] Source Comments This information has been disclosed [...] release of HIV test results or diagnoses. [id number] Health Encounter Details Date Type Department Care Team (Late st Contact Info) Description 10/20/2024 Orders Only [facility] [address] [place] [address] Abdulkadir Gaspar MD [address] [facility] [address] [place] [address] Social History Tobacco Use Types Packs/Day Years Used Date Smoking Tobacco: Former Cigarettes Smokeless Tobacco: Current Alcohol Use Standard Drinks/Week Comments Yes 0 (1 standard drink = 0.6 oz pure alcohol) History of alcohol abuse, reports no use in 3 week- typically endorses use as 4 glasses of wine a days Utilities Answer Date Recorded In the past 12 months has [employer], gas, oil, or water company threatened to [...] Description 12/05/2024 8:01 AM EDT Hospital Encounter [facility] ENDOSCOPY [address] [place] [address] Chris Orosco MD [address] [place] [phone] 12/05/2024 8:01 AM EDT - 12/05/2024 8:31 AM EDT Surgery [facility] ENDOSCOPY [address] [place] [address] Chris Orosco MD [address] [place] [address] EGD Scheduled Procedures Name Priority Associated Diagnoses [...] MD LAB BLOOD ORDERABLES Final Resul t [facility] [address] [facility] [place] [address] * Hox - ABO Typing Report (10/20/2024 5:03 PM EDT) 10/20/2024 5:03 PM EDT us Abdulkadir Hubert ABDULLAHI LAB BLOOD ORDERABLES Final Resul t [facility] [address] [place] [address] documented in this encounter Visit Diagnoses Not on filedocumented in this encounter Additional Health Concerns Infection Onset Date Last Indicated Resolved Time C. difficile 09/09/2024 09/09/2024 10/27/2024 8:30 AM EDT Assessment Noted Time PHQ-9 Depression Total Score: 17 025 11:00 AM EDT documented as of this encounter Care Teams Middle School Guidance Counselor Relationship Specialty Start Date End Date Enedina Mcguire NP [address] [place], [place] [phone] PCP - General Internal Medicine 10/05/24 documented as of this encounter
--- OUTSIDE RECORDS SUMMARY | 2024-11-18 07:45 | XMS_ITS | Encounter Summary ---
Author Organization [facility] Address [address] [place] [address] Care Team Providers Care Map Compiler Name Role Phone Enedina Mcguire NP Primary Care Provider + [phone] Maureen Pantoja RN Unavailable Unavail able Source [...] release of HIV test results or diagnoses. [id number] Health Encounter Details Date Type Department Care Team (Late st Contact Info) Description 11/04/2024 Results Follow-Up [facility] Liver Transplant at [address] [address] Maureen Pantoja, ЮЛИЯ Tacrolimus level, Hepatic Function [...] Recorded In the past 12 months has [employer], gas, oil, or water [employer] threatened to shut off services in your [...] Hospital Encounter [facility] ENDOSCOPY [address] [place] [address] Chris Orosco MD [address] [place] [phone] 12/05/2024 8:01 AM EDT - 12/05/2024 8:31 AM EDT Surgery [facility] ENDOSCOPY [address] [place] [phone] Chris Orosco MD [address] [place] [phone] EGD Scheduled Procedures Name Priority Associated Diagnoses [...] documented as of this encounter Care Teams Map Compiler Relationship Specialty Start Date End Date Enedina Mcguire NP [address] [place] [address] PCP - General Internal Medicine 10/05/24 Maureen Pantoja, RN Txp Post Coordinator Transplant Hepatology 10/28/24 documented as of this encounter
--- OUTSIDE RECORDS SUMMARY | 2024-11-18 07:45 | XMS_ITS | Encounter Summary ---
Author Organization [facility] Address [address] [place] [address] Care Team Providers Care Motorbike Courier Name Role Phone Enedina Mcguire NP Primary Care Provider [phone] Source Comments This information has been disclosed [...] release of HIV test results or diagnoses. [id number] Encounter Details Date Type Department Care Team (Late st Contact Info) Description 10/20/2024 Telephone [facility] Liver Transplant at [address] [phone] Mary Butler, RN Social History Tobacco Use [...] Recorded In the past 12 months has [employer] gas, oil, or water [employer] threatened to shut off services in your [...] Hep C donors. He'll also go to [facility] later today vs tomorrow morning for follow up MELD labs that I'll need in order to list him. All questions answered at this time. Lab orders faxed to [facility] at [phone] and emailed to patient. documented in this encounter Plan of Treatment Upcoming Encounters Date Type Department Care Team (Late st Contact Info) Description 12/05/2024 8:01 AM EDT Hospital Encounter [facility] ENDOSCOPY [address] [place] [address] Chris Orosco MD [address] [place] [phone] 12/05/2024 8:01 AM EDT - 12/05/2024 8:31 AM EDT Surgery [facility] ENDOSCOPY [address] [place] [address] Chris Orosco MD [address] [place] [phone] EGD Scheduled Procedures Name Priority Associated Diagnoses [...] documented as of this encounter Care Teams Motorbike Courier Relationship Specialty Start Date End Date Enedina Mcguire NP [address] [place] [address] PCP - General Internal Medicine 10/05/24 documented as of this encounter
--- OUTSIDE RECORDS SUMMARY | 2024-11-18 07:45 | XMS_ITS | Encounter Summary ---
Author Organization [facility] Address [address] [place] [address] Care Team Providers Care English Composition Instructor Name Role Phone Enedina Mcguire NP Primary Care Provider + [phone] Maureen Pantoja RN Unavailable Unavail able Source [...] release of HIV test results or diagnoses. [id number] Reason for Visit * Reason Comments Medication Refill Refill Request 1st A ttempt Encounter Details Date Type Department Care Team (Late st Contact Info) Description 10/20/2024 Refill [facility] Gastroenterology at [facility] Office [address] [place] [phone] Gerri Peterson MD [address] [place] [address] Social History Tobacco Use Types Packs/Day Years Used Date Smoking Tobacco: Former Cigarettes Smokeless Tobacco: Current Alcohol Use Standard Drinks/Week Comments Yes 0 (1 standard drink = 0.6 oz pure alcohol) History of alcohol abuse, reports no use in 3 week- typically endorses use as 4 glasses of wine a days Utilities Answer Date Recorded In the past 12 months has [employer], gas, oil, or water [employer] threatened to shut off services in your [...] need filled today. PHARMACY & PHONE #: [facility] [address] [place] [address] [address] [address] DATE OF LAST APPT: 09/02/2024 Gerri Peterson MD DATE OF NEXT APPT: 12/02/2024 GI/LIVER FELLOW 4 documented in this encounter Plan of Treatment Upcoming Encounters Date Type Department Care Team (Late st Contact Info) Description 12/05/2024 8:01 AM EDT Hospital Encounter [facility] ENDOSCOPY [address] [place] [address] Chris Orosco MD [address] [place] [phone] 12/05/2024 8:01 AM EDT - 12/05/2024 8:31 AM EDT Surgery [facility] ENDOSCOPY [address] [place] [phone] Chris Orosco MD [address] [place] [phone] EGD Scheduled Procedures Name Priority Associated Diagnoses Date/Ti me EGD Cirrhosis of liver with ascites, unspecified hepatic cirrhosis type ([facility]) 12/05/2024 8:01 AM EDT documented [...] documented as of this encounter Care Teams English Composition Instructor Relationship Specialty Start Date End Date Enedina Mcguire NP [address] [place] [address] PCP - General Internal Medicine 10/05/24 Maureen Pantoja, RN Txp Post Coordinator Transplant Hepatology 10/28/24 documented as of this encounter
--- OUTSIDE RECORDS SUMMARY | 2024-11-18 07:45 | XMS_ITS | Encounter Summary ---
Author Organization [facility] Address [address] [place] [address] Care Team Providers Care Office Rn Name Role Phone Enedina Mcguire NP Primary Care Provider + [phone] Maureen Pantoja RN Unavailable Unavail able Source [...] release of HIV test results or diagnoses. [id number] Reason for Visit * Reason Comments Results Encounter Details Date Type Department Care Team (Late st Contact Info) Description 11/04/2024 Telephone [facility] Liver Transplant at [address] [address] Maureen Pantoja, RN Results [...] In the past 12 months has [employer], gas, oil, or water [employer] threatened to shut off services in your [...] 12/05/2024 8:01 AM EDT Hospital Encounter [facility] ENDOSCOPY [address] [place] [address] Chris Orosco MD [address] [place] [phone] 12/05/2024 8:01 AM EDT - 12/05/2024 8:31 AM EDT Surgery [facility] ENDOSCOPY [address] [place] [phone] Chris Orosco MD [address] [place] [phone] EGD Scheduled Procedures Name Priority Associated Diagnoses [...] documented as of this encounter Care Teams Office Rn Relationship Specialty Start Date End Date Enedina Mcguire NP [address] [place] [address] PCP - General Internal Medicine 10/05/24 Maureen Pantoja, ЮЛИЯ Txp Post Coordinator Transplant Hepatology 10/28/24 documented as of this encounter
--- OUTSIDE RECORDS SUMMARY | 2024-11-18 07:45 | XMS_ITS | Encounter Summary ---
Author Organization [facility] Address [address] [place] [address] Care Team Providers Care Working Manager Name Role Phone Enedina Mcguire NP Primary Care Provider + [phone] Maureen Pantoja RN Unavailable Unavail able Source [...] release of HIV test results or diagnoses. [id number] Reason for Visit * Reason Comments Transplant Review Encounter Details Date Type Department Care Team (Late st Contact Info) Description 10/27/2024 Pharmacy Services [facility] [address] [place] [address] Opal Cox, TaniD Social History Tobacco [...] Recorded In the past 12 months has [employer], gas, oil, or water [employer] threatened to shut off services in your [...] of Care Patient's prescriptions were sent to [facility] for a Transplant benefits review. Julien Anderson received a Kidney/Liver Transplant on 10/26-10/27/24 at [facility]. The patient's discharge medications were sent to [facility] for anticipated discharge of 11/03/24. The patient has a [employer] [facility] commercial insurance plan to cover prescriptions. Currently, the patient's co-pay for all medications is listed below: Acetaminophen 325 mg - $4 Alcohol swabs - $0 Aspiring 81mg - $4 Atovaquone 750 mg/5 ml - $0 Dexcom G7 Broommaker- $0 Dexcom G7 Sensor- $0 Eliquis 2.5mg [...] $0 Specialty Pharmacy Requirements: Name of Pharmacy: [facility] Specialty Phone Number: Prescriptions Transferred at Discharge Date: The patient could have potential eligibility for the pharmaceutical company medication assistance program for each of these medications. Mr Anderson's total cost of discharge prescriptions is currently $16. This total is subject to changewith the addition or change in any of the prescriptions sent to [facility]. A call was placed to Mr Anderson's room to discuss total cost amount from above and encourage patientto set up profile with [facility] Specialty. [facility] Specialty Pharmacy confirmed delivery of immunosuppressants to [...] The patient has been referred to the [facility] Transplant Team. The patient should visit Medication Access for assistance if problems arise with the prescriptions. If questions arise regarding discharge medications, please call [phone]. Opal Cox Pharm D Transitions of Care [phone] documented in this encounter Plan of Treatment Upcoming Encounters Date Type Department Care Team (Late st Contact Info) Description 12/05/2024 8:01 AM EDT Hospital Encounter [facility] ENDOSCOPY [address] [place] [phone] Chris Orosco MD [address] [place] [phone] 12/05/2024 8:01 AM EDT - 12/05/2024 8:31 AM EDT Surgery [facility] ENDOSCOPY [address] [place] [phone] Chris Orosco MD [address] [place] [phone] EGD Scheduled Procedures Name Priority Associated Diagnoses [...] documented as of this encounter Care Teams Working Manager Relationship Specialty Start Date End Date Enedian Mcguire NP [address] [place] [address] PCP - General Internal Medicine 10/05/24 Maureen Pantoja, ЮЛИЯ Txp Post Coordinator Transplant Hepatology 10/28/24 documented as of this encounter
--- OUTSIDE RECORDS SUMMARY | 2024-11-18 07:45 | XMS_ITS | Encounter Summary ---
Author Organization [facility] Address [address] [place] [address] Care Team Providers Care Fructose Loader Name Role Phone Enedina Mcguier NP Primary Care Provider + [phone] Maureen Pantoja RN Unavailable Unavail able Source [...] release of HIV test results or diagnoses. [id number] Health Encounter Details Date Type Department Care Team (Late st Contact Info) Description 10/27/2024 Chart Note [facility] Liver Transplant at [address] [place] [phone] Crista Power, RN I introduced myself as inpatient liver/kidney career based intervention coordinator, Social History Tobacco Use Types Packs/Day Years Used Date Smoking Tobacco: Former Cigarettes Smokeless Tobacco: Current Alcohol Use Standard Drinks/Week Comments Yes 0 (1 standard drink = 0.6 oz pure alcohol) History of alcohol abuse, reports no use in 3 week- typically endorses use as 4 glasses of wine a days Utilities Answer Date Recorded In the past 12 months has [employer], gas, oil, or water [employer] threatened to shut off services in your [...] EDT I introduced myself as inpatient liver/kidney career based intervention coordinator, explained role and provided my contact [...] 12/05/2024 8:01 AM EDT Hospital Encounter [facility] ENDOSCOPY [address] [place] [address] Chris Orosco MD [address] [place] [phone] 12/05/2024 8:01 AM EDT - 12/05/2024 8:31 AM EDT Surgery [facility] ENDOSCOPY [address] [place] [address] Chris Orosco MD [address] [place] [phone] EGD Scheduled Procedures Name Priority Associated Diagnoses Date/Ti me EGD Cirrhosis of liver with ascites, unspecified hepatic cirrhosis type ([facility]) 12/05/2024 8:01 AM EDT documented [...] documented as of this encounter Care Teams Fructose Loader Relationship Specialty Start Date End Date Enedina Mcguire NP [address] [place] [address] PCP - General Internal Medicine 10/05/24 Maureen Pantoja, ЮЛИЯ Txp Post Coordinator Transplant Hepatology 10/28/24 documented as of this encounter
--- OUTSIDE RECORDS SUMMARY | 2024-11-18 07:45 | XMS_ITS | Encounter Summary ---
Author Organization [facility] Address [address] [place] [address] Care Team Providers Care Fuel Retrofitting Technician Name Role Phone Enedina Mcguire NP Primary Care Provider + [phone] Maureen Pantoja RN Unavailable Unavail able Source [...] release of HIV test results or diagnoses. [id number] Reason for Visit * Reason Comments Results Encounter Details Date Type Department Care Team (Riky st Contact Info) Description 11/11/2024 Telephone [facility] Liver Transplant at [address] [address] Maureen Pantoja, RN Results Social [...] In the past 12 months has e [employer], gas, oil, or water [employer] threatened to shut off services in [...] EDT Hospital Encounter [facility] ENDOSCOPY [address] [place] [address] Chris Orosco MD [address] [place] [phone] 12/05/2024 8:01 AM EDT - 12/05/2024 8:31 AM EDT Surgery [facility] ENDOSCOPY [address] [place] [address] Chris Orosco MD [address] [place] [phone] EGD Scheduled Procedures Name Priority Associated Diagnoses [...] documented as of this encounter Care Teams Fuel Retrofitting Technician Relationship Specialty Start Date End Date Enedina Mcguire NP [address] [place] [address] PCP - General Internal Medicine 10/05/24 Maureen Pantoja, ЮЛИЯ Txp Post Coordinator Transplant Hepatology 10/28/24 documented as of this encounter
--- OUTSIDE RECORDS SUMMARY | 2024-11-18 07:45 | XMS_ITS | Encounter Summary ---
Author Organization [facility] Address [facility] [place] [address] Care Team Providers Care 3D Specialist Name Role Phone Enedina Mcguire NP Primary Care Provider + [phone] Maureen Pantoja RN Unavailable Unavail able Source [...] release of HIV test results or diagnoses. [id number] Reason for Visit * Reason Comments After Hours Call Passing blood throug h stool states started this morning has had 3 bloody bowel movements kidney and liver txp done 2 weeks ago Encounter Details Date Type Department Care Team (Late st Contact Info) Description 11/09/2024 Telephone [facility] [address] [place] [address] Unknown, Attending Provider After Hours [...] Recorded In the past 12 months has [employer], gas, oil, or water [employer] threatened to shut off services in [...] any time in the past 12 m [facility], were you homeless or living [...] Caller to Patient and Callback: dionna anderson [phone] Patient of: liver txp txp team Nature of Call: Passing blood through stool states started this morning has had 3 bloody bowel movements kidney and liver txp done 2 weeks ago Machine Trimmer Provider Contacted: del turner Time and Method [...] Description 12/05/2024 8:01 AM EDT Hospital Encounter [facility] ENDOSCOPY [address] [place] [address] Chris Orosco MD [address] [place] [phone] 12/05/2024 8:01 AM EDT - 12/05/2024 8:31 AM EDT Surgery [facility] ENDOSCOPY [address] [place] [phone] Chris Orosco MD [address] [place] [phone] EGD Scheduled Procedures Name Priority Associated Diagnoses [...] documented as of this encounter Care Teams 3D Specialist Relationship Specialty Start Date End Date Enedina Mcguire NP [address] [place] [address] PCP - General Internal Medicine 10/05/24 Maureen Pantoja, RN Txp Post Coordinator Transplant Hepatology 10/28/24 documented as of this encounter
--- OUTSIDE RECORDS SUMMARY | 2024-11-18 07:45 | XMS_ITS | Encounter Summary ---
Author Organization [facility] Address [address] [place] [address] Care Team Providers Care Back Gray Cloth Washer Name Role Phone Enedina Mcguire NP Primary Care Provider + [phone] Maureen Pantoja RN Unavailable Unavail able Source [...] release of HIV test results or diagnoses. [id number] Health Encounter Details Date Type Department Care Team (Late st Contact Info) Description 11/04/2024 Social Work [facility] Liver Transplant at [address] [place] [phone] Kaylin Willard MSW Social History Tobacco Use [...] Recorded In the past 12 months has [employer], gas, oil, or water [employer] threatened to shut off services in your [...] Patient reports he completed CD treatment with [facility] and was referred to [facility] for aftercare and will be attending 1 week virtual individual counseling sessions.He reports he was due to start this while hospitalized for the transplant and plans to reschedule his next session. Hope Stone given. SW discussed process for writing to Donor family and confirmed Pt/family have [facility] brochure. No further SW needs identified. NUBIA Barros, COMBAT RIFLE CREWMEMBER Transplant Tanning Wheel Filler documented in this encounter Plan of Treatment Upcoming Encounters Date Type Department Care Team (Late st Contact Info) Description 12/05/2024 8:01 AM EDT Hospital Encounter [facility] ENDOSCOPY [address] [place] [phone] Chris Orosco MD [address] [place] [phone] 12/05/2024 8:01 AM EDT - 12/05/2024 8:31 AM EDT Surgery [facility] ENDOSCOPY [address] [place] [phone] Chris Orosco MD [address] [place] [phone] EGD Scheduled Procedures Name Priority Associated Diagnoses [...] documented as of this encounter Care Teams Back Gray Cloth Washer Relationship Specialty Start Date End Date Enedina Mcguire NP [address] [place] [address] PCP - General Internal Medicine 10/05/24 Maureen Pantoja, ЮЛИЯ Txp Post Coordinator Transplant Hepatology 10/28/24 documented as of this encounter
--- OUTSIDE RECORDS SUMMARY | 2024-11-18 07:45 | XMS_ITS | Encounter Summary ---
Author Organization [facility] Address [address] [place] [address] Care Team Providers Care Brim And Crown Presser Name Role Phone Enedina Mcguire NP Primary Care Provider + [phone] Maureen Pantoja RN Unavailable Unavail able Source [...] release of HIV test results or diagnoses. [id number] Health Encounter Details Date Type Department Care Team (Late st Contact Info) Description 11/07/2024 Chart Note [facility] Liver Transplant at [address] [place] [phone] Marlene Ro MA FK Pending Social History Tobacco Use Types Packs/Day Years Used Date Smoking Tobacco: Former Cigarettes Smokeless Tobacco: Current Alcohol Use Standard Drinks/Week Comments Yes 0 (1 standard drink = 0.6 oz pure alcohol) History of alcohol abuse, reports no use in 3 week- typically endorses use as 4 glasses of wine a days Utilities Answer Date Recorded In the past 12 months has [employer], gas, oil, or water [employer] threatened to shut off services in your [...] Notes * Marlene Ro MA - 11/07/2024 1:25 PM EDT FK Pending documented in this encounter Plan of Treatment Upcoming Encounters Date Type Department Care Team (Late st Contact Info) Description 12/05/2024 8:01 AM EDT Hospital Encounter [facility] ENDOSCOPY [address] [place] [address] Chris Orosco MD [address] [place] [address] 12/05/2024 8:01 AM EDT - 12/05/2024 8:31 AM EDT Surgery [facility] ENDOSCOPY [address] [place] [address] Chris Orosco MD [address] [place] [phone] EGD Scheduled Procedures Name Priority Associated Diagnoses Date/Ti me EGD Cirrhosis of liver with ascites, unspecified hepatic cirrhosis type ([facility]) 12/05/2024 8:01 AM EDT documented as of this encounter Procedures Procedure Name Priority Date/Time Associated Diagnosis Comments HEPATIC FUNCTION PANEL Routine 11/06/2024 8:36 AM EDT TACROLIMUS LEVEL Routine 11/06/2024 8:36 AM EDT CBC AND DIFFERENTIAL Routine 11/06/2024 8:36 AM EDT RENAL FUNCTION PANEL W/O EGFR Routine 11/06/2024 8:36 AM EDT documented in this encounter Results * Tacrolimus level (11/06/2024 8:36 AM EDT) Tacrolimus Lvl 9.9 6 - 15 ng/mL Whole Blood [facility] Provider MD LAB BLOOD ORDERABLES Denisse l Result * (ABNORMAL) Renal Function Panel w/o EGFR (11/06/2024 8:36 AM EDT) [facility] Glucose 108 mg/dL BUN 35(A) 4 - [...] 5.0 g/dL Blood Narrative Resulting Agency Comment [facility] Provider MD LAB BLOOD ORDERABLES Denisse l Result * (ABNORMAL) CBC and differential (11/06/2024 8:36 AM EDT) [facility] Hemoglobin 9.3(A) 13.5 - 17.5 g/dL Hematocrit [...] 7.5 10^3/mL Blood Narrative Resulting Agency Comment [facility] Historical Provider LAB BLOOD ORDERABLES Denisse l Result * (ABNORMAL) Hepatic Function Panel (11/06/2024 8:36 AM EDT) Bilirubin, Direct 0.7 Bilirubin, Indirect 0.2 Alkaline Phosphatase 142 U/L ALT 59 U/L AST 24 U/L Total Bilirubin 0.9 0.1 - 1.4 mg/dL Total Protein 5.4(A) 6.4 - 8.2 g/dL Plasma Narrative Resulting Agency Comment [facility] Historical Provider LAB BLOOD ORDERABLES Denisse l Result documented in this encounter Visit Diagnoses Not on filedocumented in this encounter Additional Health Concerns 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
--- OUTSIDE RECORDS SUMMARY | 2024-11-18 07:45 | XMS_ITS | Encounter Summary ---
Author Organization [facility] Address [address] [place] [address] Care Team Providers Care Butadiene Converter Utility Operator Name Role Phone Enedina Mcguire NP Primary Care Provider [phone] Source Comments This information has been disclosed [...] release of HIV test results or diagnoses. [id number] Health Encounter Details Date Type Department Care Team (Late st Contact Info) Description 10/27/2024 Chart Note [facility] Kidney Transplant at [address] [place] [phone] Karen Rosen, RN I have verified that the donor serologies entered in [facility] match the donor Social History Tobacco [...] Recorded In the past 12 months has [employer], gas, oil, or water [employer] threatened to shut off services in your [...] verified that the donor serologies entered in [employer] match the donor serologies that are listed in [facility]. documented in this encounter Plan of Treatment Upcoming Encounters Date Type Department Care Team (Late st Contact Info) Description 12/05/2024 8:01 AM EDT Hospital Encounter [facility] ENDOSCOPY [address] [place] [address] Chris Orosco MD [address] [place] [address] 12/05/2024 8:01 AM EDT - 12/05/2024 8:31 AM EDT Surgery [facility] ENDOSCOPY [address] [place] [address] Chris Orosco MD [address] [place] [phone] EGD Scheduled Procedures Name Priority Associated Diagnoses [...] documented as of this encounter Care Teams Butadiene Converter Utility Operator Relationship Specialty Start Date End Date Enedina Mcguire NP [address] [place] [address] PCP - General Internal Medicine 10/05/24 documented as of this encounter
--- OUTSIDE RECORDS SUMMARY | 2024-11-18 07:45 | XMS_ITS | Encounter Summary ---
Author Organization [facility] Address [address] [place] [address] Care Team Providers Care Metal Leaf Layer Name Role Phone Enedina Mcguire NP Primary Care Provider + [phone] Maureen Pantoja RN Unavailable Unavail able Source [...] release of HIV test results or diagnoses. [id number] Health Encounter Details Date Type Department Care Team (Late st Contact Info) Description 11/07/2024 Telephone [facility] Liver Transplant at [address] [phone] Marlene Ro MA Social History [...] Recorded In the past 12 months has [employer], gas, oil, or water [employer] threatened to shut off services in [...] Hospital Encounter [facility] ENDOSCOPY [address] [place] [address] Chris Orosco MD [address] [place] [phone] 12/05/2024 8:01 AM EDT - 12/05/2024 8:31 AM EDT Surgery [facility] ENDOSCOPY [address] [place] [address] Chris Orosco MD [address] [place] [address] EGD Scheduled Procedures Name Priority Associated Diagnoses [...] as of this encounter Care Teams Metal Leaf Layer Relationship Specialty Start Date End Date Enedina Mcguire NP [address] [place] [address] PCP - General Internal Medicine 10/05/24 Maureen Pantoja, RN Txp Post Coordinator Transplant Hepatology 10/28/24 documented as of this encounter
--- OUTSIDE RECORDS SUMMARY | 2024-11-18 07:47 | XMS_ITS | Encounter Summary ---
Author Organization [facility] Address [address] [place] [address] Care Team Providers Care Wholesale Account Manager Name Role Phone Enedina Mcguire NP Primary Care Provider + [phone] Maureen Pantoja RN Unavailable Unavail able Source [...] release of HIV test results or diagnoses. [id number] Health Encounter Details Date Type Department Care Team (Late st Contact Info) Description 10/29/2024 Education Chart Note [facility] Liver Transplant at [address] [place] [phone] Crista Power, RN Social History Tobacco [...] Recorded In the past 12 months has [employer], gas, oil, or water [employer] threatened to shut off services in your [...] of Infection/Rejection [x] 5. When to call food services coordinator [x] 6. Outpatient follow up including [...] times 0900/2100. Julien Anderson has to use [facility]. Meds are getting delivered 10/31/24. documented in this encounter Plan of Treatment Upcoming Encounters Date Type Department Care Team (Late st Contact Info) Description 12/05/2024 8:01 AM EDT Hospital Encounter [facility] ENDOSCOPY [address] [place] [address] Chris Orosco MD [address] [place] [address] 12/05/2024 8:01 AM EDT - 12/05/2024 8:31 AM EDT Surgery [facility] ENDOSCOPY [address] [place] [address] Chris Orosco MD [address] [place] [phone] EGD Scheduled Procedures Name Priority Associated Diagnoses Date/Ti me EGD Cirrhosis of liver with ascites, unspecified hepatic cirrhosis type ([facility]) 12/05/2024 8:01 AM EDT documented as of this encounter Visit Diagnoses Not on filedocumented in this encounter Additional Health Concerns Assessment Noted Time PHQ-9 Depression Total Score: 17 025 11:00 AM EDT documented as of this encounter Care Teams Wholesale Account Manager Relationship Specialty Start Date End Date Enedina Mcguire NP [address] [place] [phone] PCP - General Internal Medicine 10/05/24 Maureen Pantoja, ЮЛИЯ Txp Post Coordinator Transplant Hepatology 10/28/24 documented as of this encounter
--- OUTSIDE RECORDS SUMMARY | 2024-11-18 07:47 | XMS_ITS | Encounter Summary ---
Author Organization [facility] Address [address] [place] [address] Care Team Providers Care Industrial Sweeper Cleaner Name Role Phone Enedina Mcguire NP Primary Care Provider + [phone] Maureen Pantoja RN Unavailable Unavail able Source [...] release of HIV test results or diagnoses. [id number] Health Encounter Details Date Type Department Care [...] Recorded In the past 12 months has [employer], [employer], oil, or water [employer] threatened to shut off services in your [...] EDT Hospital Encounter [facility] ENDOSCOPY [address] [place] [phone] Chris Orosco MD [address] [place] [phone] 12/05/2024 8:01 AM EDT - 12/05/2024 8:31 AM EDT Surgery [facility] ENDOSCOPY [address] [place] [phone] Chris Orosco MD [address] [place] [phone] EGD Scheduled Procedures Name Priority Associated Diagnoses Date/Ti me EGD Cirrhosis of liver with ascites, unspecified hepatic cirrhosis type ([facility]) 12/05/2024 8:01 AM EDT documented as of this encounter Visit Diagnoses Not on filedocumented in this encounter Additional Health Concerns Assessment Noted Time PHQ-9 Depression Total Score: 17 025 11:00 AM EDT documented as of this encounter Care Teams Industrial Sweeper Cleaner Relationship Specialty Start Date End Date Enedina Mcguire NP [address] [place] [address] PCP - General Internal Medicine 10/05/24 Maureen Pantoja, ЮЛИЯ Txp Post Coordinator Transplant Hepatology 10/28/24 documented as of this encounter
--- OUTSIDE RECORDS SUMMARY | 2024-11-18 07:47 | XMS_ITS | Encounter Summary ---
Author Organization [facility] Address [address] [place] [address] Care Team Providers Care Plant Machinist Name Role Phone Enedina Mcguire NP Primary Care Provider + [phone] Maureen Pantoja RN Unavailable Unavail able Source [...] release of HIV test results or diagnoses. [id number] Health Encounter Details Date Type Department Care Team (Late st Contact Info) Description 11/03/2024 Telephone [facility] Liver Transplant at [address] [place] [phone] Marisela Martinez MA Social History Tobacco [...] Recorded In the past 12 months has [employer], gas, oil, or water [employer] threatened to shut off services in your [...] he will have his labs drawn at [facility] prior to clinic on 11/03. documented in this encounter Plan of Treatment Upcoming Encounters Date Type Department Care Team (Late st Contact Info) Description 12/05/2024 8:01 AM EDT Hospital Encounter [facility] ENDOSCOPY [address] [place] [address] Chris Orosco MD [address] [place] [phone] 12/05/2024 8:01 AM EDT - 12/05/2024 8:31 AM EDT Surgery [facility] ENDOSCOPY [address] [place] [address] Chris Orosco MD [address] [place] [phone] EGD Scheduled Procedures Name Priority Associated Diagnoses [...] as of this encounter Care Teams Plant Machinist Relationship Specialty Start Date End Date Enedina Mcguire NP [address] [place] [address] PCP - General Internal Medicine 10/05/24 Pantoja, Maureen Leeanna, RN Txp Post Coordinator Transplant Hepatology 10/28/24 documented as of this encounter
--- OUTSIDE RECORDS SUMMARY | 2024-11-18 07:47 | XMS_ITS | Encounter Summary ---
Author Organization [facility] Address [address] [place] [address] Care Team Providers Care Neuropsychiatric Aide Name Role Phone Enedina Mcguire NP Primary Care Provider + [phone] Maureen Pantoja RN Unavailable Unavail able Source [...] release of HIV test results or diagnoses. [id number] Health Encounter Details Date Type Department Care Team (Late st Contact Info) Description 11/03/2024 Chart Note [facility] Liver Transplant at [address] [place] [phone] Hillary Fernandes, [facility] Liver Transplant Pharmacy Discharge [...] In the past 12 months has [employer], gas, oil, or water [employer] threatened to shut off services in [...] blood-glucose meter (TRUE METRIX GLUCOSE METER) [facility] Use to test blood [...] 12 units lancets (ACCU-CHEK SOFTCLIX LANCETS) [facility] Use to test blood [...] times a day. naloxone (NARCAN) 4 mg/actuation Whitney Apply 1 spray in one nostril if [...] Solid Organ Transplant Clinical Specialist Contact via NCLC Preferred documented in this encounter Plan of Treatment Upcoming Encounters Date Type Department Care Team (Late st Contact Info) Description 12/05/2024 8:01 AM EDT Hospital Encounter [facility] ENDOSCOPY [address] [place] [phone] Chris Orosco MD [address] [place] [phone] 12/05/2024 8:01 AM EDT - 12/05/2024 8:31 AM EDT Surgery [facility] ENDOSCOPY [address] [place] [phone] Chris Orosco MD [address] [place] [phone] EGD Scheduled Procedures Name Priority Associated Diagnoses Date/Ti me EGD Cirrhosis of liver with ascites, unspecified hepatic cirrhosis type ([facility]) 12/05/2024 8:01 AM EDT documented as of this encounter Visit Diagnoses Not on filedocumented in this encounter Additional Health Concerns 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
--- OUTSIDE RECORDS SUMMARY | 2024-11-18 07:47 | XMS_ITS | Encounter Summary ---
Author Organization [facility] Address [address] [place] [address] Care Team Providers Care Manager Oncology Name Role Phone Enedina Mcguire NP Primary Care Provider [phone] Source Comments This information has been disclosed [...] release of HIV test results or diagnoses. [id number] Health Encounter Details Date Type Department Care Team (Late st Contact Info) Description 10/17/2024 Pharmacy Services [facility] [address] [place] [phone] Qu, Ridge, RPh Social History Tobacco [...] Recorded In the past 12 months has [employer], gas, oil, or water company threatened to [...] this encounter Progress Notes * Ridge Menjivar, formerly [facility] - 10/17/2024 9:47 AM EDT Julien [...] member, friend, or other person (including a airport operations officer). The at-risk individual reports no known [...] Encounter [facility] ENDOSCOPY [address] [place] [phone] Chris Orosco MD [address] [place] [phone] 12/05/2024 8:01 AM EDT - 12/05/2024 8:31 AM EDT Surgery [facility] ENDOSCOPY [address] [place] [phone] Chris Orosco MD [address] [place] [phone] EGD Scheduled Procedures Name Priority Associated Diagnoses [...] as of this encounter Care Teams Manager Oncology Relationship Specialty Start Date End Date Enedina Mcguire NP [address] [place] [address] PCP - General Internal Medicine 10/05/24 documented as of this encounter
--- OUTSIDE RECORDS SUMMARY | 2024-11-18 07:49 | XMS_ITS | Clinical Summary ---
Author Organization [facility] Address [facility] [place] [address] Care Team Providers Care Detention Officer Name Role Phone Enedina Mcguire NP Primary Care Provider + [phone] Maurene Pantoja RN Unavailable Unavail able Source Comments [...] therelease of HIV test results or diagnoses. [id number] Allergies Active Allergy Reactions Criticality Noted Date [...] EDT 025 Active naloxone (NARCAN) 4 mg/actuation Coker Apply 1 spray in one nostril if [...] Active blood-glucose meter (TRUE METRIX GLUCOSE METER) Share [...] days. Last day 11/26/24 24 tablet 11/03/19 10:20 AM EDT 2024 Active tacrolimus (PROGRAF) 1 MG capsule Take 6 capsules (6 mg total) by mouth 2 times a day. Use as directed 600 capsule 5 Active magnesium chloride (SLOW MAG) 71.5 mg TbECIndication s:hypomagnesem ia Take 2 tablets (143 mg total) by mouth 3 times a day. Indications: hypomagnesemia 180 tablet 2 2024 Active torsemide (DEMADEX) 20 MG tablet [...] breakfast. 2024 Discontinued(S top Taking at Discharge) rifAXIMin [...] 10/18/19 25 10:24 AM EDT 025 2024 Discontinued(R [...] mouth 3 times a day. 90 tablet 025 2024 Discontinued rifAXIMin (XIFAXAN) 550 mg Tab [...] times a day. 60 tablet 025 2024 Discontinued atovaquone (MEPRON) 750 mg/5 mL suspension Take 10 mLs (1,500 mg total) by mouth daily for 30 doses. 300 mL 2 025 2024 Discontinued(S top Taking at Discharge) fluconazole [...] tablet 2 11/03/19 25 10:20 AM EDT 025 2024 Discontinued tacrolimus (PROGRAF) 1 MG capsule Take 10 capsules (10 mg total) by mouth 2 times a day. Use as directed 600 capsule 5 2024 Discontinued aspirin 81 MG chewable tablet Chew 1 tablet (81 mg total) by mouth daily. 30 tablet 11 025 2024 Discontinued(S top Taking at Discharge) methocarbamoL (ROBAXIN) 500 MG tablet Take 1 tablet (500 mg total) by mouth 3 times a day. 90 tablet 025 2024 Discontinued insulin lispro 100 unit/mL InPn Administer insulin with meals per sliding scale: Blood glucose 150-199 mg/dL =2 units, Blood glucose 200-249 mg/dL =4 units, Blood glucose 250-299 mg/dL =7 units, Blood glucose 300-349 mg/dL =10 units, Blood glucose greater than 349 mg/dL = 12 units 15 mL 2 025 2024 Discontinued(S top Taking at Discharge) insulin NPH isoph U-100 human 100 unit/mL (3 mL) InPn Inject 5 Units subcutaneously in the morning and at bedtime. 15 mL 2 025 2024 Discontinued(S top Taking at Discharge) FREESTYLE NIDA 3 READER Misc Use 1 each as directed. 1 each 025 2024 Discontinued(S top Taking at Discharge) blood-glucose sensor (FREESTYLE NIDA 3 PLUS SENSOR) Radha Use 1 sensor as directed every 15 days. 2 each 2024 Discontinued(S top Taking at Discharge) DEXCOM G7 DIRECTOR OF PERSONNEL Misc Use reader as directed. 1 each 2024 Discontinued(S top Taking at Discharge) DEXCOM G7 SENSOR Radha Use 1 sensor as directed every 10 days. 3 each 025 2024 Discontinued(S top Taking at Discharge) tacrolimus [...] day. 28 tablet 11/03/19 10:20 AM EDT 2024 Discontinued(T herapy Completed / No [...] as directed 600 capsule 5 2024 Discontinued linezolid (ZYVOX) 600 mg tablet [...] - Ascites: para 4/16 for 4L, 09/03 1L, 09/04 4L; no [...] Description 11/11/2024 10:30 AM EDT Office Visit [facility] Liver Transplant at [address] [address] Unknown, Attending Provider Jessica Colon Kidney replaced by transplant (Primary Dx); Hypervolemia associated with renal insufficiency 11/11/2024 10:00 AM EDT Office Visit [facility] Liver Transplant at [address] [address] Cosmo Pacheco MD Quillin, Ralph Cutler III, MD Encounter for therapeutic drug monitoring (Primary Dx); Abdominal pain, unspecified abdominal location 11/11/2024 9:30 AM EDT Office Visit [facility] Psychiatry Transplant at [address] [address] Lizeth Warren PsyD PTSD (post-traumatic stress disorder) (Primary Dx) 11/11/2024 8:50 AM EDT [facility] [address] [place] [address] Harvey Domínguez III, MD Liver replaced by transplant ([facility]-HCC); Immunosuppressive management encounter following liver transplant ([facility]-HCC); Kidney transplant recipient 11/11/2024 Telephone [facility] Transplant at [address] [address] Maureen Pantoja, RN Results 11/10/2024 Orders Only [facility] Liver Transplant at [address] [address] Maureen Pantoja, RN Liver transplant recipient ([facility]-HCC) (Primary Dx); Kidney transplant recipient; Immunosuppressive management encounter following liver transplant (CMS-HCC) 11/10/2024 Orders Only [facility] Liver Transplant at [address] [address] Maureen Pantoja, RN 11/09/2024 Telephone [facility] [address] [place] [address] Unknown, Attending Provider After Hours Call (Passing blood through stool states started this morning has had 3 bloody bowel movements kidney and liver txp done 2 weeks ago) 11/07/2024 Telephone [facility] Liver Transplant at [address] [address] Marlene Ro MA 11/07/2024 Telephone [facility] Liver Transplant at [address] [address] Maureen Pantoja, ЮЛИЯ Results 11/07/2024 Chart Note [facility] Transplant at [address] [address] Marlene Ro MA FK Pending 11/04/2024 10:10 AM EDT Office Visit [facility] Liver Transplant at [address] [address] Leisa Juarez MD Kidney transplant recipient (Primary Dx); Diarrhea of presumed infectious origin; Hypomagnesemia; Hypervolemia, unspecified hypervolemia type; Liver transplant recipient (CMS-HCC); Other hypervolemia; Hyperparathyroidism ([facility]-HCC); Nausea and vomiting, unspecified vomiting type 11/04/2024 8:40 AM EDT Office Visit [facility] Transplant at [address] [address] Cosmo Pacheco MD Liver transplant recipient (CMS-HCC) (Primary Dx); Alcoholic cirrhosis of liver with ascites (CMS-HCC); Kidney transplant recipient; Acute kidney injury superimposed on CKD ([facility]-HCC); CKD (chronic kidney disease) stage 4, GFR 15-29 ml/min ([facility]-HCC); Immunosuppressive management encounter following liver transplant ([facility]); Abdominal pain, unspecified abdominal location 11/04/2024 Telephone [facility] Transplant at [address] [place] [phone] Maureen Pantoja, RN Results 11/04/2024 Results Follow-Up [facility]plant at [address] [place] [address] Maureen Pantoja, ЮЛИЯ Tacrolimus level, Hepatic Function Panel, Renal Function Panel w/EGFR, Additional followed-up results: 3 11/04/2024 Social Work [facility] at [address] [address] Kaylin Willard MSW 11/04/2024 Nutrition [facility] Kid[facility] Transplant at [address] [place] [address] Ben Weiss, DMITRY 11/03/2024 Chart Note [facility] Transplant at [address] [place] [address] Hillary Fernandes, PharmD Liver Transplant Pharmacy Discharge Note 11/03/2024 Telephone [facility] Transplant at [address] [place] [phone] Marisela Martinez MA 10/31/2024 Orders Only [facility] Transplant at [address] [place] [phone] Harvey Domínguez III, MD Liver replaced by transplant ([facility]) (Primary Dx); Immunosuppressive management encounter following liver transplant ([facility]) 10/29/2024 Travel 10/29/2024 Education Chart Note [facility] at [address] [place] [phone] Crista Power, ЮЛИЯ 10/27/2024 2:34 AM EDT Anesthesia Event [facility] [address] [place], [place] [address] [place] [phone] Rocky Manning MD Kopel, Lior, MD 10/27/2024 2:00 AM EDT - 10/27/2024 6:[address] [facility] [address] [place] [address] Harvey Domínguez III, MD Donor Kidney Transplant , Back Bench Preparation Donor Kidney, Baseline Kidney transplant biopsy , Insertion of Indwelling Stent , Removal of Perihepatic packing 10/27/2024 Pharmacy Services [facility] [address] [place] [address] Opal Cox, Lissett 10/27/2024 Chart Note [facility] Kidney Transplant at [address] [place] [address] Karen Rosen, RN I have verified that the donor serologies entered in Epic match the donor 10/27/2024 Chart Note [facility] Liver Transplant at [address] [place] [address] Crista Power, RN I introduced myself as inpatient liver/kidney aco coordinator, 10/27/2024 Orders Only [facility] [address] [place] [phone] Abdulkadir Gaspar MD 10/26/2024 Chart Note [facility] Kidney Transplant at [address] [place] [phone] Geri Vasquez RN 10/26/2024 Chart Note [facility]plant at [address] [place] [phone] Geri Vasquez RN 10/25/2024 10:54 PM EDT An[address]hesia Event [facility] [address] [facility] [phone] Eber Quinones MD Edwards, Anna, MD 10/25/2024 10:30 PM EDT - 10/26/2024 6:[address] [facility] [address] [place] [phone] Harvey Domínguez III, MD LIVER TRANSPLANT 10/25/2024 8:46 PM EDT - 11/02/2024 6:23 PM EDT Hospital Encounter [facility]C [address] [place] [phone] Harvey Domínguez III, MD Haugen, Christine, MD Acute kidney injury superimposed on CKD ([facility]CC) (Primary Dx); Prophylactic antibiotic; Prolonged QT interval; Immunosuppression (CMS-HCC); Abdominal pain, unspecified abdominal location Discharge Disposition: Home or Self Care WITHOUT Home Care Services 10/25/2024 Travel 10/25/2024 Telephone [facility] Transplant at [address] [place] [phone] Krissy Crowell, RN DDLT patient instructions 10/25/2024 Telephone [facility] Transplant at [address] [place] [address] Krissy Crowell, ЮЛИЯ 10/24/2024 Telephone [facility] at [address] [place] [phone] Joann Davies MA Appointment 10/22/2024 Telephone [facility] Transplant at [address] [place] [phone] Mary Butler, RN 10/22/2024 Chart Note [facility] Kidney Transplant at [address] [place] [phone] Gladis Rainey, RN Received most recent eGFR from today with result of 21. Pt meets CKD 10/22/2024 Chart Note [facility]plant at [address] [phone] Faraz Carballo, ЮЛИЯ 2nd ABO verified for [facility] listing at the request of JOSE G Butler. 10/22/2024 Telephone [facility] Psychiatry Transplant at [address] [place] [phone] Lizeth Warren PsyD 10/22/2024 Chart Note [facility] [address] [place] [address] Aaron Gonzalez MD Candidacy for a simultaneous liver-kidney transplant 10/22/2024 Status Update [facility] Kid[facility] Transplant at [address] [place] [address] Aaron Gonzalez MD 10/22/2024 Chart Note [facility] Transplant at [address] [place] [address] Mary Butler, RN UNOS VERIFICATION CHECK FORM 10/22/2024 Orders Only [facility] [address] [place] [address] Abdulkadir Gaspar MD 10/22/2024 Chart Note [facility] Liver Transplant at [address] [place] [phone] Mary Butler, RN 10/21/2024 Telephone [facility] Gastroenterology at [facility] [address] [facility] [address] [place] [address] Gerri Peterson MD Medication Management (Requesting RX for New Medication ) 10/21/2024 Refill [facility] Gastroenterology at [facility] [address] [place] [address] Gerri Peterson MD 10/20/2024 9:10 AM EDT - 10/20/2024 11:59 PM EDT Hospital Encounter [facility] Radiology [address] [place] [address] System, Provider Not In Discharge Disposition: Home or Self Care WITHOUT Home Care Services 10/20/2024 9:10 AM EDT - 10/20/2024 11:59 PM EDT Hospital Encounter [facility] [address] [place] [address] System, Provider Not In Discharge Disposition: Home or Self Care WITHOUT Home Care Services 10/20/2024 9:10 AM EDT - 10/20/2024 11:59 PM EDT Hospital Encounter [facility] [address] [place] [address] System, Provider Not In Discharge Disposition: Home or Self Care WITHOUT Home Care Services 10/20/2024 9:10 AM EDT - 10/20/2024 11:59 PM EDT Hospital Encounter [facility] [address] [place] [address] System, Provider Not In Discharge Disposition: Home or Self Care WITHOUT Home Care Services 10/20/2024 9:10 AM EDT - 10/20/2024 11:59 PM EDT Hospital Encounter [facility] [address] [place] [address] System, Provider Not In Discharge Disposition: Home or Self Care WITHOUT Home Care Services 10/20/2024 9:10 AM EDT - 10/20/2024 11:59 PM EDT Hospital Encounter [facility] [address] [place] [address] System, Provider Not In Discharge Disposition: Home or Self Care WITHOUT Home Care Services 10/20/2024 9:10 AM EDT - 10/20/2024 11:59 PM EDT Hospital Encounter [facility] [address] [place] [address] System, Provider Not In Discharge Disposition: Home or Self Care WITHOUT Home Care Services 10/20/2024 Orders Only [facility] [address] [place] [phone] Abdulkadir Gaspar MD 10/20/2024 Telephone [facility] Gastroenterology at [facility] [address] [phone] Gerri Peterson MD Prescription Issue (RX Clarification Request ) 10/20/2024 Refill [facility] at [facility] [address] [phone] Gerri Peterson MD 10/20/2024 Telephone [facility] Liver Transplant at [address] [address] Mary Butler RN 10/17/2024 Chart Note [facility] Kidney Transplant at [address] [address] Anny Cote RN Copy of HLA report scanned into the media tab. Will follow up on GFR 10/17/2024 Chart Note [facility] Kidney Transplant at [address] [address] Anny Cote RN 10/17/2024 Pharmacy Services [facility] [address] [place] [phone] Ridge Menjivar RPh 10/14/2024 8:42 AM EDT - 10/14/2024 9:[address] [facility] Cardiac [employer] [address] [place] [place] [address] Irving Matta MD Left Heart Cath 10/14/2024 Chart Note [facility] Kidney Transplant at [address] [place] [address] Dean Robles [facility] [address] 10/10/2024 12:01 PM EDT Anesthesia Event [facility] ENDOSCOPY [address] [place] [address] Cady Bhat MD Nguyen, Quinn, MD 10/10/2024 10:36 AM EDT - 10/10/2024 11:06 AM EDT Surgery [facility] ENDOSCOPY [address] [place] [address] Lino Soto MD EGD 10/09/2024 Social Work [facility]plant at [address] [facility] [address] [place] [address] Kaylin Willard MSW 10/09/2024 Chart Note [facility] at [address] [facility] [address] [place] [address] Dean Robles [facility] [address] call from Elle buckley [facility] fx [phone] 10/09/2024 Chart Note [facility] Kidney Transplant at [address] [place] [address] Dean Robles [facility] [address] 10/07/2024 Chart Note [facility] Liver Transplant at [address] [place] [address] Mary Butler, RN Spoke with Blair Carringtonen today for evaluation for a combined liver and 10/07/2024 Chart Note [facility] Kidney Transplant at [address] [phone] Anny Cote, RN Received notice of in house evaluation. Message to nephrology 10/07/2024 Chart Note [facility] Kidney Transplant at [address] [address] Chey Nicole MA This MA received new referral for PT. Will FU once financially cleared. 10/07/2024 Chart Note [facility] Kidney Transplant at [address] [phone] Anny Cote RN Simultaneous Liver-Kidney Transplant Referral 10/06/2024 Travel 10/05/2024 11:12 PM EDT - 10/17/2024 10:29 AM EDT Hospital Encounter [facility] [address]E [address] [place] [phone] Gómez Blanchard MD Wood, Sharice N, MD Thomas, Stephanie, MD Alcoholic cirrhosis of liver with ascites (CMS-HCC) (Primary Dx); NADIYA (acute kidney injury) ([facility]-HCC); Metabolic encephalopathy; SBP (spontaneous bacterial peritonitis) [...] Care WITHOUT Home Care Services 10/05/2024 Telephone [facility] [address] [place] [address] Unknown, Attending Provider After Hours Call 10/01/2024 Telephone [facility] Liver Transplant at [address] [place] [address] Armand [place], RN 09/30/2024 Social Work [facility] Liver Transplant at [address] [place] [address] Kaylin Willard MSW 09/29/2024 11:00 AM EDT Office Visit [facility] Psychiatry Transplant at [address] [place] [address] Lizeth Warren PsyD PTSD (post-traumatic stress disorder) (Primary Dx); Alcohol use disorder 09/26/2024 Abstract [facility] Gastroenterology at [facility] [address] [place] [phone] Gerri Peterson MD 09/25/2024 11:25 AM EDT [facility] [address] [place] [address] Gerri Peterson MD Cirrhosis of liver with ascites, unspecified hepatic cirrhosis type (CMS-HCC); Pre-transplant evaluation for chronic liver disease; Alcoholic cirrhosis of liver without ascites (CMS-HCC) 09/25/2024 Social Work [facility] Liver Transplant at [address] [place] [address] Kaylin Willard, NUBIA 09/25/2024 Telephone [facility] Inter[facility] Radiology [address] [place] [phone] De Leon, Nabilaone Appointment 09/25/2024 Orders Only [facility] Liver Transplant at [address] [place] [address] Mary Butler, ЮЛИЯ Pre-transplant evaluation for chronic liver disease (Primary Dx); Alcoholic cirrhosis of liver without ascites (CMS-HCC) 09/24/2024 Orders Only [facility] at [facility] [address] [facility] [address] [place] [address] Gerri Peterson MD Cirrhosis of liver with ascites, unspecified hepatic cirrhosis type (CMS-HCC) (Primary Dx) 09/24/2024 Orders Only [facility] at [facility] [address] [facility] [address] [place] [address] Gerri Peterson MD Cirrhosis of liver with ascites, unspecified hepatic cirrhosis type (CMS-HCC) (Primary Dx) 09/23/2024 Telephone [facility] at [facility] [address] [facility] [address] [place] [address] Gerri Peterson MD Orders (Order Clarification Request/) 09/22/2024 Telephone [facility] at [facility] [address] [facility] [address] [place] [address] Gerri Peterson MD Orders (Order Clarification Request ) 09/17/2024 Telephone [facility] Liver Transplant at [address] [facility] [place] [address] Kaylin Willard, NUBIA 09/17/2024 Abstract [facility] at [facility] [address] [facility] [address] [place] [address] Gerri Peterson MD 09/17/2024 Telephone [facility] Liver Transplant at [address] [place] [address] Kaylin Willard MSW 09/16/2024 Telephone [facility] at [facility] [address] [facility] [address] [place] [address] Gerri Peterson MD Medical Management (Plan of Care Inquiry/Question ) 09/10/2024 Telephone [facility] Liver Transplant at [address] [place] [phone] Kaylin Willard MSW 09/05/2024 Orders Only [facility] Gastroenterology at [facility] Office [address] [facility] [address] [place] [address] Chris Orosco MD Cirrhosis of liver with ascites, unspecified hepatic cirrhosis type (CMS-HCC) (Primary Dx) 09/05/2024 Travel 09/03/2024 4:56 AM EDT - 09/09/2024 6:25 PM EDT Hospital Encounter [facility] [address] [place] [phone] Ana Maria Ramey MD Zackary, Joseph, MD Morgenlander, Adam M, MD Liebler, Hillary, MD Stickles, Flaquita Powell MD Alcoholic cirrhosis of liver with ascites (CMS-HCC) (Primary Dx); Abdominal pain, unspecified abdominal location; NADIYA (acute kidney injury) (CMS-HCC) [N17.9] Discharge Disposition: Home or Self Care WITHOUT Home Care Services 09/03/2024 Telephone [facility] Interventional Radiology [address] [place] [address] Thad De Leon Appointment 09/02/2024 4:00 PM EDT [facility] [address] [facility] [address] [place] [phone] Doron Botello MD Alcoholic cirrhosis of liver without ascites (CMS-HCC); Cirrhosis of liver with ascites, unspecified hepatic cirrhosis type (CMS-HCC) 09/02/2024 2:40 PM EDT Office Visit [facility] Gastroenter[facility] at [facility] Office [address] [facility] [address] [place] [address] Gerri Peterson MD Cirrhosis of liver with ascites, unspecified hepatic cirrhosis type (CMS-HCC) (Primary Dx); Alcoholic cirrhosis of liver without ascites (CMS-HCC) 09/02/2024 Orders Only [facility] [address] [place], [place] [phone] Noé Giordano MD Hypokalemia (Primary Dx) 09/02/2024 Telephone [facility] [address] [place] [address] Unknown, Attending Provider After Hours Call 09/02/2024 Orders Only [facility] Liver Transplant at [facility] [address] [facility] [address] [place] [address] Mary Butler RN Pre-transplant evaluation for chronic liver disease (Primary Dx); Alcoholic cirrhosis of liver without ascites (CMS-HCC) 09/02/2024 Telephone [facility] at [facility] 222 [facility] [address] [place] [address] Gerir Peterson MD Orders (Order Request (New) ) 09/02/2024 Telephone [facility] at [facility] [address] [facility] [address] [place] [address] Chris Orosco MD 08/20/2024 Telephone [facility] Liver Transplant at [address] [place] [address] Kaylin Willard MSW 08/12/2024 6:12 PM EDT - 08/19/2024 12:56 PM EDT Hospital Encounter [facility] [address] [place] [phone] MD [place], Zachary, MD Lenz, Peter, MD Ahmad, Yousef, MD Ayoub, Bassam Y, MD Clark, Katherine E, MD Chronic liver failure without hepatic [...] the past 12 months has th e [employer], [employer], oil, or water [employer] threatened to shut off services in [...] [facility] ENDOSCOPY [address] [place] [phone] Chris Orosco MD [address] [place] [id number] 12/05/2024 8:01 AM EDT - 12/05/2024 8:31 AM EDT Surgery [facility] ENDOSCOPY [address] [place] [phone] Chris Orosco MD [address] [place] [phone] EGD Scheduled Procedures Name Priority Associated [...] Routine 10/31/2024 10:19 AM EDT US DUPLEX [id number] COMPLETE Routine 10/31/2024 10:19 AM EDT ECG [...] STAT 10/28/2024 4:23 PM EDT US DUPLEX QBQ-[id number]-KYPRAWI COMPLETE STAT 10/28/2024 4:23 PM EDT TRANSFUSE [...] STAT 10/27/2024 9:51 AM EDT US DUPLEX AQZ-[id number]-[id number] COMPLETE STAT 10/27/2024 9:51 AM EDT US [...] Acute kidney injury superimposed on CKD (CMS-HCC) SD RENAL ALTRNSPLJ IMPLTJ GRF W/ECMO SPECIALIST NEPHRECTOMY 10/27/2024 2:32 AM EDT Acute [...] LIPID PANEL Routine 10/07/2024 6:37 PM EDT CMWKN-0-CLGEACQELCY (AAT) QUANTITATION & MUTATION Routine 10/07/2024 6:37 [...] Routine 10/07/2024 3:48 PM EDT US DUPLEX ZPE-RVWWBB-TROBEFM COMPLETE Routine 10/07/2024 3:48 PM EDT CARISA [...] 10/06/2024 4:01 AM EDT UPPER RESPIRATORY VIRAL/BACTERIAL PANEL-SAW SHARPENER ONLY Routine 10/06/2024 3:12 AM EDT XR [...] STAT 09/03/2024 10:30 AM EDT US DUPLEX SAC-VRCOZH-HZPKVFQ COMPLETE STAT 09/03/2024 10:30 AM EDT URINALYSIS, [...] PANEL W/EGFR STAT 08/19/2024 2:59 AM EDT from Last 3 Months Results * (ABNORMAL) Post Kidney Transplant Urine Culture (11/11/2024 9:13 AM EDT) Only the most recent of3 resultswithin the time period is included. Culture Result Enterococcus faecium(A) [facility]ALTH [facility] Comment: <1,000 cfu/mL Identified by MALDI-TOF MS No Further Workup Midstream Urine URINE SPECIMEN / Unknown 11/11/2024 9:13 AM EDT 11/11/2024 10:17 AM EDT us Caron Santos CNP MICROBIOLOGY - GENERAL OR DERABLES Final Result [facility] [address] [id number], [facility] * (ABNORMAL) Hepatic Function Panel (11/11/2024 9:13 AM EDT) Only the most recent of40 resultswithin the time period is included. Total Bilirubin 1.0 0.0 - 1.5 mg/dL 11/11/2024 10:51 AM EDT HEALTH LAB Bilirubin, Direct 0.39 0.00 - 0.40 mg/dL 11/11/2024 10:51 AM EDT [facility] AST 15 13 - 39 U/L 11/11/2024 10:51 AM EDT [facility] ALT 26 7 - 52 U/L 11/11/2024 10:51 AM EDT [facility] Alkaline Phosphatase 125 36 - 125 U/L 11/11/2024 10:51 AM EDT [facility] Total Protein 5.9(L) 6.4 - 8.9 g/dL 11/11/2024 10:51 AM EDT [facility] Albumin 3.8 3.5 - 5.7 g/dL 11/11/2024 10:51 AM EDT [facility] Bilirubin, Indirect 0.61 0.00 - 1.10 mg/dL 11/11/2024 10:51 AM EDT [facility] Plasma 11/11/2024 9:13 AM EDT 11/11/2024 10:19 AM EDT Narrative [facility] - 11/11/2024 10:51 AM EDT Standing orders to be drawn: Every Sunday and before 9am and prior to patient taking morning medications. Liver Transplant Fax results to [phone] Call Critical results to [phone] DO NOT REPLACE RENAL PANEL or HEPATIC FUNCTION PANEL w/ CMP, BMP or HEPATIC PROFILE us Harvey Domínguez III, MD LAB BLOOD ORDERABLE S Final Result [facility] [address] [place] [address], [facility] * (ABNORMAL) Renal Function Panel w/EGFR (11/11/2024 9:13 AM EDT) Only the most recent of41 resultswithin the time period is included. Sodium 141 133 - 146 mmol/L 11/11/2024 10:51 AM EDT [facility] Potassium 4.6 3.5 - 5.3 mmol/L 11/11/2024 10:51 AM EDT [facility] Chloride 108 98 - 110 mmol/L 11/11/2024 10:51 AM EDT [facility] CO2 24 21 - 33 mmol/L 11/11/2024 10:51 AM EDT [facility] Anion Gap 9 3 - 16 mmol/L 11/11/2024 10:51 AM EDT [facility] BUN 27(H) 7 - 25 mg/dL 11/11/2024 10:51 AM EDT [facility] Creatinine 1.14 0.60 - 1.30 mg/dL 11/11/2024 10:51 AM EDT [facility] Glucose 97 70 - 100 mg/dL 11/11/2024 10:51 AM EDT [facility] Calcium 8.6 8.6 - 10.3 mg/dL 11/11/2024 10:51 AM EDT [facility] Phosphorus 4.4 2.1 - 4.7 mg/dL 11/11/2024 10:51 AM EDT [facility] Albumin 3.8 3.5 - 5.7 g/dL 11/11/2024 10:51 AM EDT [facility] Osmolality, Calculated 297 278 - 305 mOsm/kg 11/11/2024 10:51 AM EDT [facility] EGFR 83 11/11/2024 10:51 AM EDT [facility] Comment:As of 2021, the estimated GFR [...] EDT Narrative [facility] - 11/11/2024 10:51 AM EDT Standing orders to be drawn: Every Sunday and before 9am and prior to patient taking morning medications. Liver Transplant Fax results to [phone] Call Critical results to [phone] DO NOT REPLACE RENAL PANEL or HEPATIC FUNCTION PANEL w/ CMP, BMP or HEPATIC PROFILE Harvey Domínguez III, MD LAB BLOOD ORDERABLE S Final Result [facility] [address] * Tacrolimus level (11/11/2024 9:13 AM EDT) Only the most recent of9 resultswithin the time period is included. Tacrolimus (LC-MS) 10.4 3.0 - 15.0 ng/mL 11/11/2024 1:22 PM EDT [facility] Comment:Performed via liquid chromatography tandem mass spectrometry. Detection limit: 1 ng/mL. Individual target concentrations may vary due to target organ and time after transplant. This test has been developed and its performance characteristics determined by [facility] which is certified under the [...] EDT Narrative [facility] - 11/11/2024 1:22 PM EDT Standing orders to be drawn: Every Sunday and before 9am and prior to patient taking morning medications. Liver Transplant Fax results to [phone] Call Critical results to [phone] Harvey Domínguez III, MD LAB BLOOD ORDERABLE S Final Result Performing Organization Address [facility]/ZIP Co de Phone Number [facility] [address] * Protein / creatinine ratio, urine (11/11/2024 9:13 AM EDT) Only the most recent of2 resultswithin the time period is included. Creatinine, Urine 71.40 mg/dL 11/11/2024 10:38 AM EDT [facility] Comment:Reference range not established for this test. Total Protein, Ur 28 mg/dL 11/11/2024 10:38 AM EDT [facility] Comment:Reference range not established for this test. Prot/Creat Ratio, Ur 0.39 ratio 11/11/2024 10:38 AM EDT [facility] Urine 11/11/2024 9:13 AM EDT 11/11/2024 10:12 AM EDT Caron Santos CNP URINE ORDERABLES Final Re sult Performing Organization Address City/[facility]/ZIP Co de Phone Number [facility] [address] [employer] [facility]. [address] * (ABNORMAL) Differential (11/11/2024 9:13 AM EDT) Only the most recent of6 resultswithin the time period is included. Neutrophils Relative 69.3 40.0 - 80.0 % 11/11/2024 10:31 AM EDT [facility] Lymphocytes Relative 17.6 15.0 - 45.0 % 11/11/2024 10:31 AM EDT [facility] Monocytes Relative 8.5 0.0 - 12.0 % 11/11/2024 10:31 AM EDT [facility] Eosinophils Relative 2.0 0.0 - 8.0 % 11/11/2024 10:31 AM EDT [facility] Basophils Relative 2.6(H) 0.0 - 1.0 % 11/11/2024 10:31 AM EDT [facility] nRBC 0 0 - 0 /100 WBC 11/11/2024 10:31 AM EDT [facility] Neutrophils Absolute 4,920 1,520 - 8,640 /uL 11/11/2024 10:31 AM EDT [facility] Lymphocytes Absolute 1,250 570 - 4,860 /uL 11/11/2024 10:31 AM EDT [facility] Monocytes Absolute 604 0 - 1,296 /uL 11/11/2024 10:31 AM EDT [facility] Eosinophils Absolute 142 0 - 864 /uL 11/11/2024 10:31 AM EDT [facility] Basophils Absolute 185(H) 0 - 108 /uL 11/11/2024 10:31 AM EDT [facility] Whole Blood 11/11/2024 9:13 AM EDT 11/11/2024 10:19 AM EDT Narrative [facility] - 11/11/2024 10:31 AM EDT Standing orders to be drawn: Every Sunday and before 9am and prior to patient taking morning medications. Liver Transplant Fax results to [phone] Call Critical results to [phone] us Harvey Domínguez III, MD LAB BLOOD ORDERABLE S Final Result [facility] [address] [place] [address], [facility] * (ABNORMAL) Urinalysis w/Rfl to Microscopic (11/11/2024 9:13 AM EDT) Only the most recent of5 resultswithin the time period is included. Color, UA Straw Yellow,Straw 11/11/2024 10:36 AM EDT [facility] Clarity, UA Clear Clear 11/11/2024 10:36 AM EDT [facility] Specific [place], UA 1.015 1.005 - 1.035 11/11/2024 10:36 AM EDT [facility] pH, UA 6.0 5.0 - 8.0 11/11/2024 10:36 AM EDT [facility] Protein, UA Negative Negative mg/dL 11/11/2024 10:36 AM EDT [facility] Glucose, UA Negative Negative mg/dL 11/11/2024 10:36 AM EDT [facility] Ketones, UA Negative Negative mg/dL 11/11/2024 10:36 AM EDT [facility] Bilirubin, UA Negative Negative 11/11/2024 10:36 AM EDT [facility] Blood, UA Small(A) Negative 11/11/2024 10:36 AM EDT [facility] Nitrite, UA Negative Negative 11/11/2024 10:36 AM EDT [facility] Urobilinogen, UA <2.0 0.2 - 1.9 mg/dL 11/11/2024 10:36 AM EDT [facility] Leukocyte Esterase, UA Negative Negative 11/11/2024 10:36 AM EDT [facility] RBC, UA 13(H) 0 - 3 /HPF 11/11/2024 10:36 AM EDT [facility] WBC, UA 4 0 - 5 /HPF 11/11/2024 10:36 AM EDT [facility] Urine 11/11/2024 9:13 AM EDT 11/11/2024 10:10 AM EDT us Caron Santos GUIDE DOMESTIC TOUR URINE ORDERABLES Final Re sult [facility] [address] [place] [address], [facility] * (ABNORMAL) CBC (11/11/2024 9:13 AM EDT) Only the most recent of48 resultswithin the time period is included. WBC 7.1 3.8 - 10.8 10E3/uL 11/11/2024 10:31 AM EDT [facility] RBC 3.42(L) 4.20 - 5.80 10E6/uL 11/11/2024 10:31 AM EDT [facility] Hemoglobin 10.6(L) 13.2 - 17.1 g/dL 11/11/2024 10:31 AM EDT [facility] Hematocrit 31.3(L) 38.5 - 50.0 % 11/11/2024 10:31 AM EDT [facility] MCV 91.5 80.0 - 100.0 fL 11/11/2024 10:31 AM EDT [facility] MCH 31.0 27.0 - 33.0 pg 11/11/2024 10:31 AM EDT [facility] MCHC 33.8 32.0 - 36.0 g/dL 11/11/2024 10:31 AM EDT [facility] RDW 20.5(H) 11.0 - 15.0 % 11/11/2024 10:31 AM EDT [facility] Platelets 308 140 - 400 10E3/uL 11/11/2024 10:31 AM EDT [facility] MPV 6.1(L) 7.5 - 11.5 fL 11/11/2024 10:31 AM EDT [facility] Whole Blood 11/11/2024 9:13 AM EDT 11/11/2024 10:19 AM EDT Narrative [facility] - 11/11/2024 10:31 AM EDT Standing orders to be drawn: Every Sunday and before 9am and prior to patient taking morning medications. Liver Transplant Fax results to [phone] Call Critical results to [phone] us Harvey Domínguez III, MD LAB BLOOD ORDERABLE S Final Result [facility] [address] * (ABNORMAL) Magnesium (11/11/2024 9:13 AM EDT) Only the most recent of42 resultswithin the time period is included. Pathologist [facility] Magnesium 1.2(L) 1.5 - 2.5 mg/dL 11/11/2024 10:51 AM EDT [facility] Plasma 11/11/2024 9:13 AM EDT 11/11/2024 10:19 AM EDT Caron Santos CNP LAB BLOOD ORDERABLES Denisse l Result [facility] [address] * (ABNORMAL) CBC and differential (11/06/2024 8:36 AM EDT) Only the most recent of2 resultswithin the time period is included. Pathologist [facility] Hemoglobin 9.3(A) 13.5 - 17.5 g/dL Hematocrit [...] 7.5 10^3/mL Blood Narrative Resulting Agency Comment [facility] Historical Provider MD LAB BLOOD [...] 5.0 g/dL Blood Narrative Resulting Agency Comment [facility] us Historical Provider MD LAB BLOOD ORDERABLES Denisse l Result * EKG - scan (11/03/2024 9:07 AM [...] - 100 mg/dL 11/02/2024 5:45 PM EDT [facility] Blood 11/02/2024 5:44 PM EDT 11/02/2024 5:45 PM EDT Harvey Domínguez III, MD POINT OF CARE TEST ORDERABLES Final Result [facility] [address] [place] [address], [facility] * X-ray Portable Abdomen AP view [...] at 11/01/2024 1:10 PM EDT us Shay Guzmán MD IMG DIAGNOSTIC IMAGI NG [...] Adrenal gland: No focal nodule seen. Kidneys: [place] kidneys noted with nonobstructing calcifications on the right. Findings of postsurgical changes in the left [place] kidney. Mild right hydronephrosis without an obstructive [...] Adrenal gland: No focal nodule seen. Kidneys: [place] kidneys noted with nonobstructing calcifications on theright. Findings of postsurgical changes in the left [place] kidney. Mildright hydronephrosis without an obstructive course [...] at 10/31/2024 4:38 PM EDT us Sveta Mojica MD IMG CT ORDERABLES Final Result * ECG 12-lead (MUSE) (10/31/2024 3:42 PM EDT) Only the most recent of10 resultswithin the time period is included. 10/31/2024 3:42 PM EDT Narrative MUSE - 11/02/2024 6:56 AM EDT Ventricular Rate: 78 BPM Atrial Rate: 78 BPM P-R Interval: 166 ms QRS Duration: 88 ms QT: 400 ms QTc: 456 ms P [place]: 49 degrees R [place]: 3 degrees T [place]: 14 degrees Diagnosis Line: NORMAL SINUS RHYTHM ^ NORMAL ECG ^ ^ Confirmed by MD REID JAMES ([id number]) on 11/02/2024 6:56:52 AM us Priti Alex GUIDE DOMESTIC TOUR ECG ORDERABLES Final Result MUSE * US Duplex Eoh-Zxv-Njzoyph Comp (10/31/2024 10:19 AM EDT) Only the [...] EXAM: US ABDOMEN LIMITED EXAM: US DUPLEX [id number]-[id number]-[id number] COMPLETE INDICATION: Post-op liver transplant COMPARISON: None [...] visualized secondary to poor acoustic windows. The [place] right kidney measures 11.6 cm in length. [...] EXAM: US ABDOMEN LIMITED EXAM: US DUPLEX [id number] COMPLETE INDICATION: Post-op liver transplant COMPARISON: None [...] well visualized secondary to poor acousticwindows. The [place] right kidney measures 11.6 cm in length. [...] 10/31/2024 10:35 AM EDT us Beata Horner GUIDE DOMESTIC TOUR IMG US ORDERABLES Final R esult * [...] EXAM: US ABDOMEN LIMITED EXAM: US DUPLEX [id number]-[id number] COMPLETE INDICATION: Post-op liver transplant COMPARISON: None [...] visualized secondary to poor acoustic windows. The [place] right kidney measures 11.6 cm in length. [...] EXAM: US ABDOMEN LIMITED EXAM: US DUPLEX [id number] COMPLETE INDICATION: Post-op liver transplant COMPARISON: None [...] well visualized secondary to poor acousticwindows. The [place] right kidney measures 11.6 cm in length. [...] 10/31/2024 10:35 AM EDT Beata Horner [facility] US ORDERABLES Final R esult [...] 10/31/2024 10:29 AM EDT us Beata Horner [facility] ORDERABLES Final R esult * Prepare RBC, leukoreduced, 1 Units (10/29/2024 6:16 AM EDT) Only the most recent of7 resultswithin the time period is included. Product Code T8952C31 HCLL Unit Number [id number] HCLL Dispense Status Presumed Transfused_PT HCLL Blood Expiration Date [id number] HCLL Coding System [id number] HCLL Blood Bank Product Shay Guzmán MD BLOOD BANK PRODUCT O RDERABLES Final Result HC[facility] * (ABNORMAL) TEG-Bypass/ECMO/Liver HN (Factor function, Platelet/Fibrin Clot Strength w/Clot Breakdown, Heparinase In All Channels) (10/29/2024 5:07 AM EDT) Only the most recent of13 resultswithin the time period is included. Citrated Kaolin Reaction Time (TEGECMOLIVER) 8.9 4.6 - 9.1 minutes 10/29/2024 7:04 AM EDT [facility] Citrated Kaolin W/Heparinase Reaction Time (TEGECMOLIVER) 7.4 4.3 - 8.3 minutes 10/29/2024 7:04 AM EDT [facility] Citrated Kaolin Maximum Amplitude (TEGECMOLIVER) 52.9 52.0 - 69.0 mm 10/29/2024 7:04 AM EDT [facility] Citrated Functional Fibrinogen W/Heparinase Maximum Amplitude(TEGEC MOLIVER) 20.7 15.0 - 34.0 mm 10/29/2024 7:04 AM EDT [facility] Citrated Rapid Teg W/Heparinase Maximum Amplitude (TEGECMOLIVER) 49.7(L) 53.0 - 69.0 mm 10/29/2024 7:04 AM EDT [facility] Citrated Kaolin w/Heparinase Percent Lysis (TEGECMOLIVER) 0.0 0.0 - 3.2 % 10/29/2024 7:04 AM EDT [facility] Whole Blood (Citrate) 10/29/2024 5:07 AM EDT 10/29/2024 5:10 AM EDT Kemar Sahni MD LAB BLOOD ORDERABLES Final Result Performing Organization Address [facility] Co de Phone Number [facility] [address] * Transfuse RBC Transfusion Rate: Per dept routine (10/28/2024 5:23 PM EDT) Only the most recent of17 resultswithin the time period is included. Shay Guzmán MD NURSING TREATMENT OR DERABLES - BLOOD ADMIN Final Result Performing Organization Address City/[facility] Co de Phone Number EXTERNAL * (ABNORMAL) Lactic Acid, STAT (10/28/2024 11:09 AM EDT) Only the most recent of12 resultswithin the time period is included. Lactate 0.3(L) 0.5 - 2.2 mmol/L 10/28/2024 11:37 AM EDT [facility] Plasma 10/28/2024 11:0 9 AM EDT 10/28/2024 11:15 AM EDT Carlos Marks MD LAB BLOOD ORDERABLES Final Result Performing Organization Address [facility] Co de Phone Number [facility] [address] [facility]. [address] * Protime-INR, STAT (10/28/2024 11:09 AM EDT) Only the most recent of34 resultswithin the time period is included. Protime 14.3 12.1 - 15.1 seconds 10/28/2024 11:29 AM EDT [facility] INR 1.1 0.9 - 1.1 10/28/2024 11:29 AM EDT [facility] Comment: RECOMMENDED THERAPEUTIC RANGES USING INR : Stable oral anticoagulant therapy: 2.0 - 3.0 Mechanical prosthetic heart valve: 2.5 - 3.5 Recurrent acute myocardial infarction: 2.5 - 3.5 Plasma 10/28/2024 11:0 9 AM EDT 10/28/2024 11:16 AM EDT Carlos Marks MD LAB BLOOD ORDERABLES Final Result [facility] [address] [place] [address], [facility] * Prepare Platelets, leukoreduced (10/28/2024 6:15 AM EDT) Only the most recent of5 resultswithin the time period is included. Product Code M5927H58 HCLL Unit Number [id number] HCLL Dispense Status Presumed Transfused_PT HCLL Blood Expiration Date HCLL Coding System [id number] HCLL Product Code R9647Y38 HCLL Unit Number [id number] HCLL Dispense Status Presumed Transfused_PT HCLL Blood Expiration Date [id number] HCLL Coding System [id number] HCLL Attending Provider Unknown BLOOD BANK PRODUCT OR DERABLES Final Result HC[facility] * Prepare Fresh Frozen Plasma (10/28/2024 6:15 AM EDT) Only the most recent of5 resultswithin the time period is included. Product Code Q9647Z17 HCLL Unit Number [id number] HCLL Dispense Status Released from Crossmatch_RE HCLL Blood Expiration Date HCLL Coding System [id number] HCLL Product Code U5421J99 HCLL Unit Number [id number] HCLL Dispense Status Presumed Transfused_PT HCLL Blood Expiration Date HCLL Coding System [id number] HCLL Product Code G5870L86 HCLL Unit Number [id number] HCLL Dispense Status Released from Crossmatch_RE HCLL Blood Expiration Date HCLL Coding System [id number] HCLL Product Code L2915U11 HCLL Unit Number [id number] HCLL Dispense Status Presumed Transfused_PT HCLL Blood Expiration Date [id number] HCLL Coding System SALQ591 HCLL Product Code G3345K28 HCLL Unit Number [id number] HCLL Dispense Status Released from Crossmatch_RE HCLL Blood Expiration Date [id number] HCLL Coding System IJVR215 HCLL us Attending Provider Unknown BLOOD BANK PRODUCT OR DERABLES Final Result [facility] * Prepare Cryoprecipitate, 1 Units (10/28/2024 6:15 AM EDT) Only the most recent of4 resultswithin the time period is included. Product Code Y3756N69 HCLL Unit Number [id number] HCLL Dispense Status Presumed Transfused_PT HCLL Blood Expiration Date HCLL Coding System [id number] HCLL Product Code N4945T36 HCLL Unit Number [id number] HCLL Dispense Status Presumed Transfused_PT HCLL Blood Expiration Date 871885001240 HCLL Coding System [id number] HCLL Blood Bank Product John Pina MD BLOOD BANK PRODUCT ORDERABLES F inal Result [facility] * (ABNORMAL) Blood Gas, Arterial, STAT (10/27/2024 2:40 PM EDT) Only the most recent of6 resultswithin the time period is included. O2 Sat, Arterial 98 10/27/2024 2:46 PM EDT [facility] FIO2 RA 10/27/2024 2:46 PM EDT [facility] pH, Arterial 7.37 7.35 - 7.45 10/27/2024 2:46 PM EDT [facility] pCO2, Arterial 35 35 - 45 mm Hg 10/27/2024 2:46 PM EDT [facility] pO2, Arterial 92 80 - 100 mm Hg 10/27/2024 2:46 PM EDT [facility] HCO3, Arterial 21(L) 22 - 26 mmol/L 10/27/2024 2:46 PM EDT [facility] CO2 Content,Arteri al 21(L) 23 - 27 mmol/L 10/27/2024 2:46 PM EDT [facility] Base Excess, Arterial -4.6(L) -2.0 - 3.0 mmol/L 10/27/2024 2:46 PM EDT [facility] [facility] %HBO2, Arterial 95.4 95.0 - 98.0 % 10/27/2024 2:46 PM EDT [facility] Carboxyhemoglo bin, Arterial 1.6 % 10/27/2024 2:46 PM EDT [facility] Comment: CARBOXYHEMOGLOBIN (CO) REFERENCE RANGES: Non-Smokers: <2 % Smokers: <8 % TOXIC: >20 % Methemoglobin, Arterial 1.0 0.0 - 1.5 % 10/27/2024 2:46 PM EDT [facility] Reduced hemoglobin, Arterial 2.1 0.0 - 5.0 % 10/27/2024 2:46 PM EDT [facility] Blood, Arterial 10/27/2024 2 :40 PM EDT 10/27/2024 2:44 PM EDT Narrative [facility] - 10/27/2024 2:46 PM EDT Post extubation us John Coulter MD LAB BLOOD ORDERABLES Final R esult [facility] [address] * CARISA Rhythm Strip - Scan (10/27/2024 9:25 AM EDT) Only the most recent of8 resultswithin the time period is included. us [...] change. No overtedema. Report Verified by: Chinedu Rodirges MD at 10/27/2024 9:22 AM EDT us John Coulter MD IMG DIAGNOSTIC IMAGING ORDER PAL Final Result * (ABNORMAL) Katie-Watkins virus VCA IgG Antibody (10/27/2024 8:00 AM EDT) EBV VCA IgG Positive( A) Negative 10/27/2024 11:30 AM EDT [facility] Comment:Presence of detectab le VCA IgG antibodies. 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 EBV IGG NUM 314.00(H) 0.00 - 17.99 U/mL 10/27/2024 11:30 AM EDT [facility] Serum 10/27/2024 8:00 AM EDT 10/27/2024 8:20 AM EDT us Kemar Sahni MD LAB BLOOD ORDERABLES Final Result Performing Organization Address [facility] Co de Phone Number [facility] [address] [employer] [address] * Hemoglobin A1c (10/27/2024 8:00 AM EDT) Only the most recent of2 resultswithin the time period is included. Hemoglobin A1C 5.0 4.0 - 5.6 % 10/27/2024 11:12 AM EDT [facility] Comment: Hemoglobin A1c Interpretation Guidelines: Normal: [...] BLOOD ORDERABLES Final Result Performing Organization Address City/[facility]/ZIP Co de Phone Number [facility] [address] [place] [address], [facility] * X-ray Abdomen AP view (10/27/2024 [...] 6:09 AM EDT) Only the most recent of6 resultswithin the time period is included. Ben Blake MD NURSING TREATMENT ORDERABLES - BLOOD ADMIN Final Result * (ABNORMAL) Arterial Blood Gas Panel (10/27/2024 6:09 AM EDT) Only the most recent of2 resultswithin the time period is included. O2Sat (ABGP) 100 10/27/2024 6:17 AM EDT [facility] pH (ABGP) 7.30(L) 7.35 - 7.45 10/27/2024 6:17 AM EDT [facility] PCO2 (ABGP) 41 35 - 45 mm Hg 10/27/2024 6:17 AM EDT [facility] PO2 (ABGP) 192(H) 80 - 100 mm Hg 10/27/2024 6:17 AM EDT [facility] HCO3 (ABGP) 21(L) 22 - 26 mmol/L 10/27/2024 6:17 AM EDT [facility] CO2 Content (ABGP) 22(L) 23 - 27 mmol/L 10/27/2024 6:17 AM EDT [facility] Base Excess (ABGP) -5.7(L) -2.0 - 3.0 mmol/L 10/27/2024 6:17 AM EDT [facility] Sodium (ABGP) 138 136 - 146 mEq/L 10/27/2024 6:17 AM EDT [facility] Potassium (ABGP) 3.3(L) 3.5 - 5.0 mEq/L 10/27/2024 6:17 AM EDT [facility] Comment:In the event of in-v itro hemolysis, potassium results may be falsely elevated. Always interpret lab results in conjunction with clinical findings. If hemolysis is suspected, a serum sample may be collected for repeat assessment of potassium. Calcium, Free (ABGP) 5.28 4.50 - 5.30 mg/dL 10/27/2024 6:17 AM EDT [facility] Glucose (ABGP) 112(H) 70 - 100 mg/dL 10/27/2024 6:17 AM EDT [facility] Comment:There is interferenc e with whole blood glucose results on this method when Hematocrit is <25% or >60%. HCT (ABGP) 20.0(L) 40.0 - 52.0 % 10/27/2024 6:17 AM EDT [facility] HGB (ABGP) 6.5(L) 14.0 - 18.0 g/dL 10/27/2024 6:17 AM EDT [facility] %HBO2 (ABGP) 96.8 95.0 - 98.0 % 10/27/2024 6:17 AM EDT [facility] Carboxyhgb (ABGP) 2.1 % 025 6:17 AM EDT [facility] Comment: CARBOXYHEMOGLOBIN (CO) REFERENCE RANGES: Non-Smokers: <2 % Smokers: <8 % TOXIC: >20 % Methemoglobin (ABGP) 1.0 0.0 - 1.5 % 10/27/2024 6:17 AM EDT [facility] Reduced Hemoglobin (ABGP) 0.2 0.0 - 5.0 % 10/27/2024 6:17 AM EDT [facility] Lactic Acid (ABGP) 0.4(L) 0.5 - 1.6 mmol/L 10/27/2024 6:17 AM EDT [facility] Blood, Arterial 10/27/2024 6 :09 AM EDT 10/27/2024 6:14 AM EDT Ben Blake MD LAB BLOOD ORDERABLES Final Re sult [facility] [address] [place] [address], [facility] * Transfuse Fresh Frozen Plasma (10/27/2024 [...] MD LAB BLOOD ORDERABLES Final Resul t [facility] [address] [facility] [place] [address] * Surgical Pathology Exam (10/27/2024 2:38 AM EDT) Only the most recent of2 resultswithin the time period is included. Tissue LEFT KIDNEY STRUCTURE / Unknown 10/27/2024 2:38 AM EDT Narrative [facility] - 10/27/2024 12:00 AM EDT CASE: [id number] PATIENT: BLAIR ANDERSON Clinical History: Transplant kidney with bile duct reconstruction Pre-Operative Diagnosis: Acute kidney injury superimposed on CKD Post-Operative Diagnosis: None Given Specimen(s) Submitted: A. baseline renal biopsy ; B. right lobe liver biopsy; C. left lobe liver biopsy CPT Code(s): 09502 X 1; 01902 X 2; 97693 X 4 Additional Information: FINAL DIAGNOSIS: A. [...] signing this report is located at [facility], [address] [place] [address], [facility] [phone], CLIA ID: [id number] ADDENDUM: A. Kidney, allograft, baseline, wedge biopsy: [...] signing this report is located at [facility], [address] [place] [address], [place], [place], Count includes the [facility], , CLIA ID: [id number] Kemar Sahni MD PATHOLOGY/CYTOLOGY ORDERABL ES Edited Result - Final Performing Organization Address [facility]/ZIP Co de Phone Number [facility] * Routine Culture plus Stain (10/27/2024 2:15 AM EDT) Only the most recent of2 resultswithin the time period is included. Gram Stain Result No Polymorphonuclear Leukocytes Seen [facility] Gram Stain Result No Organisms Seen; [facility] Culture Result No Growth After 3 Days [facility] Fluid SPECIMEN FROM KIDNEY / Unknown 10/27/2024 2:15 AM EDT 10/27/2024 4:24 AM EDT Narrative [facility] - 10/30/2024 9:26 AM EDT 1) perfusate Harvey Domínguez III, MD MICROBIOLOGY - GENE RAL ORDERABLES Final Result Performing Organization Address [facility] Co de Phone Number [facility] [address] [place] [address] * Anaerobic culture (10/27/2024 2:15 AM EDT) Only the most recent of2 resultswithin the time period is included. Culture Result No Anaerobes Isolated in 5 Days [facility] Fluid SPECIMEN FROM KIDNEY / Unknown 10/27/2024 2:15 AM EDT 10/27/2024 4:24 AM EDT Narrative [facility] - 10/31/2024 11:43 AM EDT 1) perfusate Harvey Domínguez III, MD MICROBIOLOGY - GENE RAL ORDERABLES Final Result Performing Organization Address [facility]/ZIP Co de Phone Number [facility] [address] [place] [address] * (ABNORMAL) TEG-Standard Global Hemostasis (Rapid TEG with Heparin Effect, Contains a Baseline TEG) (10/27/2024 1:51 AM EDT) Only the most recent of2 resultswithin the time period is included. [facility] Citrated Kaolin Reaction Time (TEGHEPARINASE) 10.6(H) 4.6 - 9.1 minutes 10/27/2024 2:44 AM EDT [facility] Citrated Rapid Teg Maximum Amplitude (TEGHEPARINASE) 42.3(L) 52.0 - 70.0 mm 10/27/2024 2:44 AM EDT [facility] Citrated Functional Fibrinogen Maximum Amplitude (TEGHEPARINASE) 15.0 15.0 - 32.0 mm 10/27/2024 2:44 AM EDT [facility] Citrated Kaolin W/Heparinase Reaction Time (TEGHEPARINASE) 10.5(H) 4.3 - 8.3 minutes 10/27/2024 2:44 AM EDT [facility] Citrated Kaolin K-Time (TEGHEPARINASE) 2.9(A) 0.8 - 2.1 minutes 10/27/2024 2:44 AM EDT [facility] Citrated Kaolin Angle (TEGHEPARINASE) 60.4(A) 63.0 - 78.0 degrees 10/27/2024 2:44 AM EDT [facility] Citrated Kaolin Maximum Amplitude (TEGHEPARINASE) 42.9(L) 52.0 - 69.0 mm 10/27/2024 2:44 AM EDT [facility] Citrated Functional Fibrinogen- Fibrinogen Level (TEGHEPARINASE) 273.7(L) 278.0 - 581.0 mg/dL 10/27/2024 2:44 AM EDT [facility] Whole Blood (Citrate) 10/27/2024 1:51 AM EDT 10/27/2024 2:03 AM EDT us John Pina MD LAB BLOOD ORDERABLES Final Resu lt [facility] [address] [place] [address], [facility] * Calcium Free, Serum (10/27/2024 12:13 AM EDT) Only the most recent of3 resultswithin the time period is included. Free Calcium, Ser 5.20 4.40 - 5.40 mg/dL 10/27/2024 12:37 AM EDT [facility] Comment:Free calcium levels vary inversely with pH by approximately 5% for each 0.1 unit of pH change. Assay results have been normalized to pH = 7.40. Serum 10/27/2024 12:1 3 AM EDT 10/27/2024 12:29 AM EDT Narrative [facility] - 10/27/2024 12:37 AM EDT This test has been developed and its performance characteristics determined by [facility] which is certified under the [...] Resu lt [facility] [address] [place], [place] [address], [facility] * Repeat Crossmatch (Recipient Sample) (10/26/2024 4:42 PM EDT) Repeat Cx - Recipient The request and specimen(s) for this test have been received and transported to the [facility] at [address] [place] [address]. The [facility] will report results directly to the client. 10/26/2024 4:49 PM EDT [facility] Whole Blood 10/26/2024 4:4 2 PM EDT 10/26/2024 4:49 PM EDT Narrative [facility] - 10/26/2024 4:49 PM EDT To be sent to [facility] for Donor UNOS#[id number] cross match with Blair Anderson Sveta Mojica MD LAB BLOOD ORDERABLES Final Resu lt Performing Organization Address City/[facility]/ZIP Co de Phone Number [facility] [address] [facility] [address] * (ABNORMAL) Fibrinogen (10/26/2024 6:10 AM EDT) Only the most recent of2 resultswithin the time period is included. Fibrinogen 160(L) 218 - 406 mg/dL 10/26/2024 6:41 AM EDT [facility] Plasma 10/26/2024 6:10 AM EDT 10/26/2024 6:26 AM EDT Sveta Mojica MD LAB BLOOD ORDERABLES Final Resu lt Performing Organization Address [facility] Co de Phone Number [facility] [address] [facility] * (ABNORMAL) POC INR (10/26/2024 5:16 AM EDT) Only the most recent of6 resultswithin the time period is included. Prothrombin Time INR, POC 2.4(H) 0.8 - 1.4 10/27/2024 6:51 AM EDT [facility] Comment: Test results may vary using [...] Result Performing Organization Address [facility] Co de Phone Number [facility] [address] [facility]. [address] * POC Lactate (10/26/2024 5:14 AM EDT) Only the most recent of6 resultswithin the time period is included. POC Lactate 1.76 0.50 - 2.20 mmol/L 10/26/2024 5:31 AM EDT [facility] Blood, Arterial 10/26/2024 5 :14 AM EDT 10/26/2024 5:31 AM EDT us Harvey Domínguez III, MD POINT OF CARE TEST ORDERABLES Final Result [facility] [address] [place] [address]. [address] * POC TCO2 (10/26/2024 5:14 AM EDT) Only the most recent of6 resultswithin the time period is included. POC TCO2, Arterial 23 23 - 27 mmol/L 10/26/2024 5:31 AM EDT [facility] Blood, Arterial 10/26/2024 5 :14 AM EDT 10/26/2024 5:31 AM EDT us Harvey Domínguez III, MD POINT OF CARE TEST ORDERABLES Final Result Performing Organization Address City/[facility] Co de Phone Number [facility] [address] [place] [address]. [address] * POC Sodium (10/26/2024 5:14 AM EDT) Only the most recent of6 resultswithin the time period is included. POC Sodium 138 136 - 146 mmol/L 10/26/2024 5:31 AM EDT [facility] Blood, Arterial 10/26/2024 5 :14 AM EDT 10/26/2024 5:31 AM EDT us Harvey Domínguez III, MD POINT OF CARE TEST ORDERABLES Final Result Performing Organization Address City/[facility]/ZIP Co de Phone Number [facility] [address] [place] [address]. [address] * (ABNORMAL) POC Potassium (10/26/2024 5:14 AM EDT) Only the most recent of6 resultswithin the time period is included. POC Potassium 2.8(LL) 3.5 - 5.3 mmol/L 10/26/2024 5:31 AM EDT [facility] Blood, Arterial 10/26/2024 5 :14 AM EDT 10/26/2024 5:31 AM EDT us Harvey Domínguez III, MD POINT OF CARE TEST ORDERABLES Final Result Performing Organization Address City/[facility] Co de Phone Number [facility] [address] [facility]. [address] * (ABNORMAL) POC PO2 (10/26/2024 5:14 AM EDT) Only the most recent of6 resultswithin the time period is included. POC pO2, Arterial 133(H) 80 - 100 mm Hg 10/26/2024 5:31 AM EDT [facility] Blood, Arterial 10/26/2024 5 :14 AM EDT 10/26/2024 5:31 AM EDT us Harvey Domínguez III, MD POINT OF CARE TEST ORDERABLES Final Result Performing Organization Address [facility] Co de Phone Number [facility] [address] [facility]. [address] * POC PCO2 (10/26/2024 5:14 AM EDT) Only the most recent of6 resultswithin the time period is included. POC pCO2, Arterial 45 35 - 45 mm Hg 10/26/2024 5:31 AM EDT [facility] Blood, Arterial 10/26/2024 5 :14 AM EDT 10/26/2024 5:31 AM EDT us Harvey Domínguez III, MD POINT OF CARE TEST ORDERABLES Final Result Performing Organization Address City/[facility] Co de Phone Number [facility] [address] [place] [address]. [address] * (ABNORMAL) POC O2 SAT (10/26/2024 5:14 AM EDT) Only the most recent of6 resultswithin the time period is included. POC O2 Saturation, Arterial 99(H) 95 - 98 % 10/26/2024 5:31 AM EDT [facility] Blood, Arterial 10/26/2024 5 :14 AM EDT 10/26/2024 5:31 AM EDT us Harvey Domínguez III, MD POINT OF CARE TEST ORDERABLES Final Result Performing Organization Address City/[facility]/ZIP Co de Phone Number [address] * POC HCO3 (10/26/2024 5:14 AM EDT) Only the most recent of6 resultswithin the time period is included. POC HCO3, Arterial 22 22 - 26 mmol/L 10/26/2024 5:31 AM EDT [facility] Blood, Arterial 10/26/2024 5 :14 AM EDT 10/26/2024 5:31 AM EDT us Harvey Domínguez III, MD POINT OF CARE TEST ORDERABLES Final Result [address] * POC Chloride (10/26/2024 5:14 AM EDT) Only the most recent of6 resultswithin the time period is included. POC Chloride 104 98 - 110 mmol/L 10/26/2024 5:31 AM EDT [facility] Blood, Arterial 10/26/2024 5 :14 AM EDT 10/26/2024 5:31 AM EDT us Harvey Domínguez III, MD POINT OF CARE TEST ORDERABLES Final Result Performing Organization Address [facility] de Phone Number [facility] [address] [facility]. [address] * (ABNORMAL) POC Base Excess (10/26/2024 5:14 AM EDT) Only the most recent of6 resultswithin the time period is included. POC Base Excess, Arterial -5(L) -2 - 3 mmol/L 10/26/2024 5:31 AM EDT [facility] Blood, Arterial 10/26/2024 5 :14 AM EDT 10/26/2024 5:31 AM EDT us Harvey Domínguez III, MD POINT OF CARE TEST ORDERABLES Final Result Performing Organization Address [facility] Co de Phone Number [facility] [address] [place], [place] [address]ue [facility]. [address] * POC Anion Gap (10/26/2024 5:14 AM EDT) Only the most recent of6 resultswithin the time period is included. POC Anion Gap, Arterial 12 3 - 16 mmol/L 10/26/2024 5:31 AM EDT [facility] Blood, Arterial 10/26/2024 5 :14 AM EDT 10/26/2024 5:31 AM EDT us Harvey Domínguez III, MD POINT OF CARE TEST ORDERABLES Final Result Performing Organization Address [facility] Co de Phone Number [facility] [address] [facility]. [address] * POC Sample Type (10/26/2024 5:14 AM EDT) Only the most recent of6 resultswithin the time period is included. POC Sample Type Arterial 10/26/2024 5:31 AM EDT [facility] Blood, Arterial 10/26/2024 5 :14 AM EDT 10/26/2024 5:31 AM EDT Harvey Domínguez III, MD POINT OF CARE TEST ORDERABLES Final Result Performing Organization Address City/[facility] Co de Phone Number [facility] [address] [facility]. [address] * (ABNORMAL) POC pH (10/26/2024 5:14 AM EDT) Only the most recent of6 resultswithin the time period is included. POC pH, Arterial 7.29(L) 7.35 - 7.45 10/26/2024 5:31 AM EDT [facility] Blood, Arterial 10/26/2024 5 :14 AM EDT 10/26/2024 5:31 AM EDT Harvey Domínguez III, MD POINT OF CARE TEST ORDERABLES Final Result Performing Organization Address [facility] de Phone Number [facility] [address] [place] [facility]. [address] * (ABNORMAL) POC hematocrit (10/26/2024 5:14 AM EDT) Only the most recent of6 resultswithin the time period is included. POC Hematocrit 28.0(L) 40 - 52 % 10/26/2024 5:31 AM EDT [facility] Blood, Arterial 10/26/2024 5 :14 AM EDT 10/26/2024 5:31 AM EDT Harvey Domínguez III, MD POINT OF CARE TEST ORDERABLES Final Result Performing Organization Address [facility] Co de Phone Number [facility] [address] [facility]. [address] * (ABNORMAL) POC Ionized Calcium (10/26/2024 5:14 AM EDT) Only the most recent of6 resultswithin the time period is included. POC Ionized Calcium 5.50(H) 4.50 - 5.30 mg/dL 10/26/2024 5:31 AM EDT [facility] Blood, Arterial 10/26/2024 5 :14 AM EDT 10/26/2024 5:31 AM EDT us Harvey Domínguez III, MD POINT OF CARE TEST ORDERABLES Final Result Performing Organization Address [facility] Co de Phone Number [facility] [address] [facility]. [address] * (ABNORMAL) POC Glucose (10/26/2024 5:14 AM EDT) Only the most recent of6 resultswithin the time period is included. POC Glucose, Arterial 183(H) 70 - 100 mg/dL 10/26/2024 5:31 AM EDT [facility] Blood, Arterial 10/26/2024 5 :14 AM EDT 10/26/2024 5:31 AM EDT us Harvey Domínguez III, MD POINT OF CARE TEST ORDERABLES Final Result Performing Organization Address [facility] Co de Phone Number [facility] [address] [facility]. [address] * (ABNORMAL) POC Hemoglobin (10/26/2024 5:14 AM EDT) Only the most recent of6 resultswithin the time period is included. POC Hemoglobin 9.5(L) 14.0 - 18.0 g/dL 10/26/2024 5:31 AM EDT [facility] Blood, Arterial 10/26/2024 5 :14 AM EDT 10/26/2024 5:31 AM EDT us Harvey Domínguez III, MD POINT OF CARE TEST ORDERABLES Final Result Performing Organization Address [facility] Co de Phone Number [facility] [address] [facility]. [address] * (ABNORMAL) TEG-Global With Lysis (Baseline TEG with LY30, Will NOT Show Heparin Effect) (53:31 AM EDT) Citrated Kaolin Reaction Time (TEGLYSIS) 6.8 4.6 - 9.1 minutes 10/26/2024 5:02 AM EDT [facility] Citrated Rapid Teg Maximum Amplitude (TEGLYSIS) <40.0(L) 52.0 - 70.0 mm 10/26/2024 5:02 AM EDT [facility] Citrated Functional Fibrinogen Maximum Amplitude (TEGLYSIS) <4.0(L) 15.0 - 32.0 mm 10/26/2024 5:02 AM EDT [facility] Citrated Kaolin Percent Lysis (TEGLYSIS) 1.4 0.0 - 2.6 % 10/26/2024 5:02 AM EDT [facility] Whole Blood (Citrate) 10/26/2024 3:31 AM EDT 10/26/2024 3:40 AM EDT Eber Quinones MD LAB BLOOD ORDERABLES Fin al Result Performing Organization Address City/State/[facility] Co de Phone Number [facility] [address] * CENTRAL LINE SINGLE LUMEN PERFORMABLE (10/25/2024 11:13 PM EDT) Narrative Ben Blake MD - 10/25/2024 11:13 PM EDT Ben Blake MD 10/26/2024 7:45 PM [facility] Date/Time: 10/25/2024 11:13 PM Performed [...] 11:08 PM EDT) Culture Result <1,000 cfu/mL [facility] Culture Result Skin/Urogeni rony Mckayla. No Further Workup. [facility] Newly Placed Berkowitz Urine URINE SPECIMEN / Unknown 10/25/2024 11:08 PM EDT Comment:urine culture Narrative [facility]ALTH [facility] - 10/28/2024 9:59 AM EDT urine culture urine culture Harvey Domínguez III, MD MICROBIOLOGY - GENE RAL ORDERABLES Final Result [facility] [address] [id number], [facility] * Insert Arterial Line (10/25/2024 10:45 [...] + IgM) Nonreactive 10/25/2024 11:13 PM EDT [facility] Serum 10/25/2024 10:1 7 PM EDT 10/25/2024 10:17 PM EDT Narrative [facility] - 10/25/2024 11:13 PM EDT HAV antibodies not detected us Aysha Gill MD LAB BLOOD ORDERABLES F inal Result Performing Organization Address [facility] Co de Phone Number [facility] [address] [facility] * Iron Studies (Iron + TIBC) (10/25/2024 10:17 PM EDT) Only the most recent of2 resultswithin the time period is included. Iron 128 50 - 212 ug/dL 10/25/2024 10:44 PM EDT [facility] % Iron Saturation SEE COMMENT 15.0 - 55.0 % 10/25/2024 10:44 PM EDT [facility] Comment:Unable to calculate result because contributing result outside reportable range.. TIBC SEE COMMENT 261 - 462 ug/dL 10/25/2024 10:44 PM EDT [facility] Comment:Unable to calculate result because contributing result outside reportable range.. Serum 10/25/2024 10:1 7 PM EDT 10/25/2024 10:17 PM EDT us Aysha Gill MD LAB BLOOD ORDERABLES F inal Result Performing Organization Address [facility] Co de Phone Number [facility] [address] [facility] * Hepatitis B Core Antibody (10/25/2024 10:17 PM EDT) Hep B Core Total Ab Nonreactive Nonreactive 10/25/2024 11:07 PM EDT [facility] Comment:Health Department no tified in accordance with reportable infectious disease guidelines. Serum 10/25/2024 10:1 7 PM EDT 10/25/2024 10:17 PM EDT Narrative [facility] - 10/25/2024 11:07 PM EDT A nonreactive final interpretation indicates that anti-HBc antibodies were not detected in the sample; it is possible that the individual is not infected with HBV. Aysha Gill MD LAB BLOOD ORDERABLES F inal Result [facility] [address] * Hepatitis C Antibody (10/25/2024 10:17 PM EDT) Only the most recent of4 resultswithin the time period is included. HCV Ab Nonreactive Nonreactive 10/25/2024 11:16 PM EDT [facility] Comment:Health Department no tified in accordance with reportable infectious disease guidelines. Serum 10/25/2024 10:1 7 PM EDT 10/25/2024 10:17 PM EDT Narrative [facility] - 10/25/2024 11:16 PM EDT Antibodies to HCV not detected; does not exclude the possibility of exposure to HCV. us Aysha Gill MD LAB BLOOD ORDERABLES F inal Result Performing Organization Address City/[facility]/ZIP Co de Phone Number [facility] [address] [facility] * HIV 1+2 Antibody/Antigen with Reflex (10/25/2024 10:17 PM EDT) Only the most recent of2 resultswithin the time period is included. HIV 1+2 AB/AGN Nonreactive Nonreactive 10/25/2024 11:03 PM EDT [facility] Serum 10/25/2024 10:1 7 PM EDT 10/25/2024 10:16 PM EDT Narrative [facility] - 10/25/2024 11:03 PM EDT \HIVRNR Aysha Gill MD LAB BLOOD ORDERABLES F inal Result [facility] [address] [facility] * (ABNORMAL) Hepatitis B Surface Antibody, Quantitati (10/25/2024 10:17 PM EDT) Only the most recent of3 resultswithin the time period is included. HBSAB NUMBER 10.70(H) 0.00 - 9.99 mIU/mL 10/25/2024 11:52 PM EDT [facility] Hep B S Ab Equivocal (A) Nonreactive 10/25/2024 11:52 PM EDT [facility] Serum 10/25/2024 10:1 7 PM EDT 10/25/2024 10:17 PM EDT us Aysha Gill MD LAB BLOOD ORDERABLES F inal Result Performing Organization Address City/[facility]/ZIP Co de Phone Number [facility] [address] [facility] * Hepatitis B surface antigen (10/25/2024 10:17 PM EDT) Only the most recent of4 resultswithin the time period is included. Hep B Surface Ag Nonreactive Nonreactive 10/25/2024 11:12 PM EDT [facility] Comment:Health Department no tified in accordance with reportable infectious disease guidelines. Serum 10/25/2024 10:1 7 PM EDT 10/25/2024 10:17 PM EDT Narrative [facility] - 10/25/2024 11:12 PM EDT Specimen is considered negative for HBsAg. us Aysha Gill MD LAB BLOOD ORDERABLES F inal Result Performing Organization Address City/[facility]/ZIP Co de Phone Number [facility] [address] [facility] * (ABNORMAL) APTT, NO ANTICOAGULANT (10/25/2024 10:17 PM EDT) aPTT 41.7(H) 25.5 - 35.0 seconds 10/25/2024 10:36 PM EDT [facility] Plasma 10/25/2024 10:1 7 PM EDT 10/25/2024 10:17 PM EDT us Aysha Gill MD LAB BLOOD ORDERABLES F inal Result [facility] [address] [facility] * PTH (10/25/2024 10:17 PM EDT) Pathologist [facility] PTH 36.0 12.0 - 88.0 pg/mL 10/25/2024 11:01 PM EDT [facility] Serum 10/25/2024 10:1 7 PM EDT 10/25/2024 10:17 PM EDT Aysha Gill MD LAB BLOOD ORDERABLES F inal Result Performing Organization Address City/[facility] Co de Phone Number [facility] [address] [facility] * (ABNORMAL) Ferritin (10/25/2024 10:17 PM EDT) Only the most recent of2 resultswithin the time period is included. Pathologist [facility] Ferritin 623.2(H) 23.9 - 336.2 ng/mL 10/25/2024 11:02 PM EDT [facility] Serum 10/25/2024 10:1 7 PM EDT 10/25/2024 10:17 PM EDT Aysha Gill MD LAB BLOOD ORDERABLES F inal Result Performing Organization Address City/[facility]/ZIP Co de Phone Number [facility] [address] [facility] * (ABNORMAL) Venous Blood Gas, Line/Syringe (10/25/2024 10:00 PM EDT) Only the most recent of5 resultswithin the time period is included. PH-Line Draw 7.38 7.32 - 7.42 10/25/2024 10:08 PM EDT [facility] PCO2-Line Draw 33(L) 41 - 51 mm Hg 10/25/2024 10:08 PM EDT [facility] PO2-Line Draw 33 25 - 40 mm Hg 10/25/2024 10:08 PM EDT [facility] HCO3-Line Draw 20(L) 24 - 28 mmol/L 10/25/2024 10:08 PM EDT [facility] CO2 Content-Line Draw 21(L) 25 - 29 mmol/L 10/25/2024 10:08 PM EDT [facility] Base Excess-Line Draw -5.0(L) -2.0 - 3.0 mmol/L 10/25/2024 10:08 PM EDT [facility] %HBO2-Line Draw 53.8 40.0 - 70.0 % 10/25/2024 10:08 PM EDT [facility] Carboxyhgb-Ludivina e Draw 1.9 % 10/25/2024 10:08 PM EDT [facility] Comment: CARBOXYHEMOGLOBIN (CO) REFERENCE RANGES: Non-Smokers: <2 % Smokers: <8 % TOXIC: >20 % Methemoglobin- Line Draw 0.2 0.0 - 1.5 % 10/25/2024 10:08 PM EDT [facility] Reduced Hemoglobin-Ludivina e Draw 44.1(H) 0.0 - 5.0 % 10/25/2024 10:08 PM EDT [facility] Venous, Line Draw 10/25/2024 10:00 PM EDT 10/25/2024 10:04 PM EDT us Aysha Gill MD LAB BLOOD ORDERABLES F inal Result Performing Organization Address City/State/[facility] Co de Phone Number [facility] [address] [place] [address], [facility] * Donor Specific Antibody (DSA) (10/25/2024 10:00 PM EDT) AntiDonor Antibodies The request and specimen(s) for this test have been received and transported to the [facility] at [address] [place] [address]. The [facility] will report results directly to the client. 10/25/2024 10:20 PM EDT [facility] Comment:Testing performed by [facility], [facility], [address] [place] [address]. The [facility] report has been forwarded to the appropriate ordering location. Please refer to this report for patient results. Serum 10/25/2024 10:0 0 PM EDT 10/25/2024 10:20 PM EDT Aysha Gill MD LAB BLOOD ORDERABLES F inal Result Performing Organization Address [facility] Co de Phone Number [address] * Hepatitis C RNA, Quant Reflex to Genotyp (10/25/2024 8:18 PM EDT) Pathologist [facility] Units Not Detected IU/mL 10/27/2024 11:03 AM EDT [facility] Comment:Test methodology for HCV RNA quantification is an FDA-approved nucleic acid amplification assay. The Lower Limit of Quantitation (LLOQ) is 15 IU/mL. The linear range of the assay is 15-100,000,000 IU/mL. The Limit of Detection (LoD) is 12.0 IU/mL for EDTA plasma. The reference range is Not Detected. IU log10 See Note log 10 IU/mL 10/27/2024 11:03 AM EDT [facility] Comment:HCV RNA not detected . Plasma 10/25/2024 8:18 PM EDT 10/25/2024 10:27 PM EDT Aysha Gill MD LAB BLOOD ORDERABLES F inal Result Performing Organization Address [facility] Co de Phone Number [facility] [address] [place] [address]. [address] * Toxoplasma gondii antibody, IgG (10/25/2024 8:18 PM EDT) Only the most recent of2 resultswithin the time period is included. Pathologist [facility] Toxoplasma Gondii IgG <3.0 0.0 - 7.1 IU/mL 10/27/2024 7:55 AM EDT [facility] Comment: Negative <7.2 Equivocal 7.2 - 8.7 Positive >8.7 Serum 10/25/2024 8:18 PM EDT 10/27/2024 8:06 AM EDT Narrative [facility] - 10/27/2024 8:06 AM EDT PERFORMED AT: [facility] [id number] PIANO STRINGER: Bassam Khalil, PhD PHONE: [phone] Aysha Gill MD LAB BLOOD ORDERABLES F inal Result [facility] [address] [place] [address]. [address] * ABO/Rh (10/25/2024 7:46 PM EDT) Only the most recent of5 resultswithin the time period is included. ABO Grouping O 10/25/2024 10:23 PM EDT [facility] Rh Type Positive 10/25/2024 10:23 PM EDT [facility] Blood 10/25/2024 7:46 PM EDT 10/25/2024 9:54 PM EDT Ben Blake MD BLOOD BANK TEST ORDERABLES Fi nal Result Performing Organization Address [facility] Co de Phone Number [facility] [address] [place] [address]. [address] * Antibody Screen (10/25/2024 7:46 PM EDT) Only the most recent of3 resultswithin the time period is included. Antibody Screen Negative 10/25/2024 10:41 PM EDT [facility] Blood 10/25/2024 7:46 PM EDT 10/25/2024 9:54 PM EDT Narrative [facility] - 10/25/2024 10:44 PM EDT Testing performed by [facility] Ben Blake MD BLOOD BANK TEST ORDERABLES Fi nal Result Performing Organization Address City/[facility]/ZIP Co de Phone Number [facility] [address] [place] [address]. [place] [address], [place] * [facility] - HLA Antibody-Detailed Report (10/22/2024 12:32 PM EDT) 10/22/2024 12:3 2 PM EDT Abdulkadir Gaspar MD LAB BLOOD ORDERABLES Final Resul t Performing Organization Address [facility] Co de Phone Number [facility] [address] [place] [address] * HOX - HLA CROSSMATCH + Detailed Antibody (10/20/2024 5:04 PM EDT) 10/20/2024 5:04 PM EDT Abdulkadir Gaspar MD LAB BLOOD ORDERABLES Final Resul t Performing Organization Address [facility] de Phone Number [facility] [address] [place], [place] [address] [place] [address] * Hox - ABO Typing Report (10/20/2024 5:03 PM EDT) 10/20/2024 5:03 PM EDT Abdulkadir Gaspar MD LAB BLOOD ORDERABLES Final Resul t Performing Organization Address [facility] Co de Phone Number [facility] [address] [place], [place] [address] [place] [address] * X-ray Comparison Images (10/20/2024 9:10 AM EDT) Only the most recent of7 resultswithin the time period is included. Narrative EXTERNAL - 10/20/2024 9:10 AM EDT Images associated with this accession number were presented to us for comparison to an examination performed here. us Provider Not In System IMG DIAGNOSTIC IMAGING OR DERABLES Final Result Performing Organization Address [facility] Co de Phone Number EXTERNAL * PRA-HLA Ab Screen (Cytotoxic) (10/15/2024 6:08 AM EDT) [facility] The request and specimen(s) for this test have been received and transported to the [facility] at [address] [place] [address]. The [facility] will report results directly to the client. 10/15/2024 6:42 AM EDT HEALTH LAB Comment:The request and spec imen(s) for this test have been received and transported to the [facility] at [address] [place] [address]. The [facility] will report results directly to the client. Serum 10/15/2024 6:08 AM EDT 10/15/2024 6:42 AM EDT us Cosmo Pacheco MD LAB BLOOD ORDERABLES Final Resul t [facility] [address] [place] [address] * LEFT HEART CATH (10/14/2024 2:09 PM EDT) 10/14/2024 11:4 7 AM EDT Narrative [facility] - 10/14/2024 9:27 PM EDT *[facility]* Cardiac [employer]ed Circuit Designer [address] [place] [address] CATHETERIZATION LAB STUDY Patient: Blair Anderson Age: [...] manner. 3. Right radial artery access. A [id number] Glidesheath - Slender - .021 sheath was [...] + !LV pressure s/d, ed !112/, 22, dP/mm=8011xm Hg/s! + + + !Aortic pressure s/d (m)!106/58 (75) ! + + + ATTESTATION: Dr. Matta was present for the entire procedure. Dr. Jay Quan was the initial author of this report. Prepared and electronically signed by Irving Matta MD [id number] Procedure Note Irving Matta MD - 10/14/2024 *[facility]* Cardiac [employer]ed [employer] Designer [address] [place] [address] CATHETERIZATION LAB STUDY Patient: Blair Anderson Age: [...] manner. 3. Right radial artery access. A [id number] Glidesheath - Slender - .021sheath was advanced [...] complications. Contrast: Omnipaque 350 25ml (total dose). Uvrwoethf228 125ml (wasted). Radiation: Fluoroscopy time: 15min. Total [...] + !LV pressure s/d, ed !112/, 22, dP/go=1150wv Hg/s! + + + !Aortic pressure s/d (m)!106/58 (75) ! + + + ATTESTATION: Dr. Matta was present for the entire procedure. Dr. Jay Quan wasthe initial author of this report. Prepared and electronically signed by Irving Matta MD [id number] [place] [id number] Final Result [facility] * Cardiac Cath Documents [...] mL of GADOBUTROL 1 MMOL/ML INTRAVENOUS SYRINGE ([facility]) administered intravenously COMPARISON: CT 09/03/2024. Ultrasound [...] mL of GADOBUTROL 1 MMOL/ML INTRAVENOUS SYRINGE ([facility])administered intravenously COMPARISON: CT 09/03/2024. Ultrasound 10/07/2024. [...] 5:35 AM EDT) Only the most recent of3 resultswithin the time period is included. Ammonia 203(HH) 27 - 90 ug/dL 10/13/2024 7:16 AM EDT [facility] Comment: HEMOLYSIS EVIDENT. RESULTS MAY BE INFLUENCED. Critical Result [id number] Called to and read back by: KEY MELO RN at: 10/13/2024 07:15:55 by:NISREEN Plasma 10/13/2024 5:35 AM EDT 10/13/2024 6:19 AM EDT us Ellis Mays DO LAB BLOOD ORDERABLES Final Resul t Performing Organization Address City/[facility]/ZIP Co de Phone Number [facility] [address] [place] [address] * Vancomycin, random (10/11/2024 3:02 AM EDT) Only the most recent of5 resultswithin the time period is included. Vancomycin Random 13.4 ug/mL 10/11/2024 3:37 AM EDT [facility] Comment:Reference range not established for this test. Plasma 10/11/2024 3:02 AM EDT 10/11/2024 3:08 AM EDT us Jodi FreireD LAB BLOOD ORDERABLES Final Result Performing Organization Address City/[facility]/ZIP Co de Phone Number [facility] [address] [facility] * IR Paracentesis incl imaging guide [...] and therapeutic paracentesis. Bakari Wahl CNP, Manager Leadership Development Procedure and Findings: The procedure was performed [...] Using ultrasound guidance, a 10 cm, 5-F [employer] Centesis catheter was placed into the [...] diagnostic andtherapeutic paracentesis. Bakari Wahl CNP, Manager Leadership Development Procedure and Findings: The procedure was performed [...] Using ultrasound guidance, a 10 cm, 5-F [employer] Centesis catheter was placedinto the right lower [...] 1:51 PM EDT) Only the most recent of4 resultswithin the time period is included. Gram Stain Result Cytospin Results: [facility] Gram Stain Result Polymorphonuclear Leukocytes Seen; [facility] Gram Stain Result No Organisms Seen; [facility] Culture Result No Growth After 5 Days [facility] Fluid ABDOMEN / Unknown 10/10/2024 1:51 PM EDT 10/10/2024 3:56 PM EDT Gerri Peterson MD MICROBIOLOGY - GENERAL ORDERABL ES Final Result Performing Organization Address City/[facility]/ZIP Co de Phone Number [facility] [address] [facility] * (ABNORMAL) Body fluid cell count (10/10/2024 1:51 PM EDT) Only the most recent of4 resultswithin the time period is included. Color, Fluid Yellow(A) Colorless, Pale Yellow 10/10/2024 5:29 PM EDT [facility] Clarity, Fluid Clear 10/10/2024 5:29 PM EDT [facility] Neutrophil %, Fluid 9 % 10/10/2024 5:29 PM EDT [facility] Lymphocytes %, Fluid 13 % 10/10/2024 5:29 PM EDT [facility] Mesothelial %, Fluid 6 % 10/10/2024 5:29 PM EDT [facility] Macrophage %, Fluid 72 % 10/10/2024 5:29 PM EDT [facility] RBC, Fluid 2,662 /uL 10/10/2024 4:41 PM EDT [facility] Total Nucleated Cells, Fluid 89 /uL 10/10/2024 4:41 PM EDT [facility] Comment:Total Nucleated Cell s represent WBCs and other nucleated cells in the fluid such as lining cells. Ascitic Fluid ABDOMEN / Unknown 1:51 PM EDT 10/10/2024 3:56 PM EDT Gerri Peterson MD BODY FLUIDS AND STOOLS ORDERABL ES Final Result [facility] [address] [place], [place] [address] * UPPER GI ENDOSCOPY (10/10/2024 11:48 AM EDT) 10/10/2024 11:4 8 AM EDT Narrative [facility] - 10/10/2024 12:34 PM EDT [id number] Procedure Date: 10/10/2024 11:48 AM Patient Name: Blair Anderson Date of : 1985 Admit Type: Inpatient Age: 39 Gender: Male Note Status: Finalized Attending MD: Lino Soto MD, [id number] Procedure: Upper GI endoscopy Indications: Gastroesopahgeal variceal [...] verified by the physician, the nurse, the excelsior picker and the apprentice instrument technician in the pre-procedure area in the [...] to hypotension Procedure Code(s): --- Professional --- 06960, GC, Esophagogastroduodenoscopy, flexible, transoral; diagnostic, including collection of specimen(s) by brushing or washing, when performed (separate procedure) Diagnosis Code(s): --- Professional --- I85.00, Esophageal 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 All rights reserved. The codes documented in this report are preliminary and upon mineral technologist review may be revised to meet current [...] In: 12:10:16 PM Scope Out: 12:17:[address] [place] [address], [id number] us Provider Not In System PROCEDURE/MINOR SURGICAL ORDERABLES Final Result [facility] * ECHO STRESS W/ CONTRAST (10/09/2024 4:37 PM EDT) Anatomical Region Laterality Modality Chest Ultrasound 10/09/2024 2:40 PM EDT Narrative 10/09/2024 6:45 PM EDT * [facility]* [address] [place] [address] Stress Echocardiogram Patient: Blair Anderson Room: 8142 Height: 76in MR Number: [id number] : 1985 Weight: 262lb Account: [id number] Gender: M BP: 125 / 77 Study Date: 10/09/2024 Age: 39 BSA: 2.48m^2 Referring physician: Gerri Peterson Interpreting physician: Tonya Henriquez MD FELLOW Lisa Jha MD PERFORMING Tonya Henriquez MD 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 The infusion was terminated [...] at baseline or with provocation, shows no eicfs-ev-mnja atrial level shunt. - Pulmonary arteries: Systolic [...] at baseline or with provocation, shows no fmaxi-xl-dewv atrial level shunt. Pulmonary artery: - Systolic [...] at baseline or with provocation, shows no yitia-pe-xzyb atrial level shunt. Pericardium: - There is [...] peak heart rate and blood pressure was 60393gw Hg/min. Stress testing did not produce any [...] Reviewed and confirmed by Tonya Henriquez MD [id number] Procedure Note Tonya Henriquez MD - 10/09/2024 * [facility]* [address] [place] [address] Stress Echocardiogram Patient: Blair Anderson Room: 8142 Height: 76in MR Number: [id number] : 1985 Weight: 262lb Account: [id number] Gender: M BP: 125 / 77 Study Date: 10/09/2024 Age: 39 BSA: 2.48m^2 Referring physician: Gerri Peterson Interpreting physician: Tonya Henriquez MD FELLOW Lisa Jha MD PERFORMING Tonya Henriquez MD MANUFACTURING OPERATOR [employer] ORDERING Gerri Peterson REFERRING Gerri Peterson ATTENDING Tequila Newton ADMITTING Gómez Blanchard Procedure:STRESS ECHO - PHARMACOLOGIC Order: Indications: Pre-Operative Clearance (Z01.818). PMH: EtOH Use Disorder. Risk factors: Hypertension. Dyslipidemia. Study data: Height: 76in. 193cm. Weight: 262lb. 118.8kg. The previousstudy was not available, so comparison was made to the report of 07/15/2024. Study status: Routine. Procedure: The patient arrived at thelaboratory. A baseline ECG was recorded. Intravenous access [...] was augmented by the addition of hand window unit air conditioning mechanic and leg lifts. The infusion was terminated [...] at baseline or with provocation, shows no bvkdq-[id number] atrial level shunt. - Pulmonary arteries: Systolic [...] study at baseline or with provocation, showsno jzvky-rl-wpyn atrial level shunt. Pulmonary artery: - Systolic [...] at baseline or with provocation, shows no bhkeg-wn-hajs atrial level shunt. Pericardium: - There is [...] heart rate). The maximal predicted heart rate [id number]. The target heart rate was 152bpm. The target heart rate was achieved.The heart rate response to stress is normal. There is a normal resting blood pressure with an appropriate response to stress. The rate-pressureproduct for the peak heart rate and blood pressure was 16106kb Hg/min. Stress testing did not produce any [...] Reviewed and confirmed by Tonya Henriquez MD [id number] us Gerri Peterson MD CV ECHO ORDERABLES Final Result * Renal Tx Recipient (10/09/2024 4:59 AM EDT) Renal Transplant Recipient The request and specimen(s) for this test have been received and transported to the [facility] at [address] [place] [address]. The [facility] will report results directly to the client. 10/09/2024 7:26 AM EDT [facility] Blood 10/09/2024 4:59 AM EDT 10/09/2024 7:26 AM EDT Aaron Gonzalez MD LAB BLOOD ORDERABLES Final Resu lt [facility] [address] [place] [facility]. [address] * (ABNORMAL) MMR(IgG) Panel (Measles, Mumps, Rubella) (10/08/2024 10:25 AM EDT) Only the most recent of2 resultswithin the time period is included. Mumps IgG Positive 10/08/2024 11:39 AM EDT [facility] MUMPS IGG NUM 99.00(H) 0.0 - 8.9 U/mL 10/08/2024 11:39 AM EDT [facility] Rubella IgG Scr Positive 10/08/2024 11:40 AM EDT [facility] RUB NUM 4.15(H) 0.00 - 0.89 INDEX 10/08/2024 11:40 AM EDT [facility] Rubeola Ab, IgG Positive 10/08/2024 11:39 AM EDT [facility] RUB IGG NUM 273.00(H) 0.00 - 13.40 U/mL 10/08/2024 11:39 AM EDT [facility] Serum 10/08/2024 10:2 5 AM EDT 10/08/2024 10:49 AM EDT Narrative [facility] - 10/08/2024 11:40 AM EDT Presence [...] ORDERABLES Final Resu lt Performing Organization Address City/[facility]/ZIP Co de Phone Number [facility] [address] [facility]. [address] * QuantiFERON TB2 Ag (10/08/2024 10:25 AM EDT) QuantiFERON TB2 Ag Value 0.07 10/10/2024 10:41 AM EDT [facility] Plasma 10/08/2024 10:2 5 AM EDT 10/08/2024 11:05 AM EDT us Gerri Peterson MD LAB BLOOD ORDERABLES Final Resu lt [facility] [address] [facility]. [address] * QuantiFERON TB1 Ag (10/08/2024 10:25 AM EDT) QuantiFERON TB1 Ag Value 0.06 10/10/2024 10:41 AM EDT [facility] Plasma 10/08/2024 10:2 5 AM EDT 10/08/2024 11:05 AM EDT us Gerri Peterson MD LAB BLOOD ORDERABLES Final Resu lt Performing Organization Address City/[facility]/ZIP Co de Phone Number [facility] [address] [facility]. [address] * QuantiFERON Nil (10/08/2024 10:25 AM EDT) QuantiFERON Nil 0.06 10:41 AM EDT [facility] Plasma 10/08/2024 10:2 5 AM EDT 10/08/2024 11:05 AM EDT Gerri Peterson MD LAB BLOOD ORDERABLES Final Resu lt Performing Organization Address City/[facility] Co de Phone Number [facility] [address] [place] [address]. [address] * QuantiFERON Mitogen (10/08/2024 10:25 AM EDT) QuantiFERON Interpretation Negative Negative 10/10/2024 10:41 AM EDT [facility] Comment:Negative result geovanny cates M. tuberculosis [...] EDT [facility] Plasma 10/08/2024 10:2 5 AM EDT [...] Resu lt [facility] [address] [facility] [place] [address], [facility] * (ABNORMAL) Vitamin D 25 Hydroxy (10/08/2024 10:25 AM EDT) Vit D, 25-Hydroxy 7.1(L) 30.0 - 100.0 ng/mL 10/08/2024 11:36 AM EDT [facility] Comment: Vitamin D deficiency has been defined by the [place] of Medicine (IOM) and an Endocrine Society practice guideline as a level of serum 25-OH Vitamin D less than 20 ng/mL. The Endocrine Society went on to further define Vitamin D insufficiency as a level between 21-29 ng/mL. 1) IOM. 2011 Dietary reference intakes for calcium and D. Majano D.C: The National Academies Press 2) Allison GUARDADO, Satunrino DELEON, Tory MILLER, et al. Evaluation, treatment, and prevention of Vitamin D deficiency: an Endocrine Society clinical practice guideline. JCEM. 2010; 96(7):1911-30. Serum 10/08/2024 10:2 5 AM EDT 10/08/2024 10:49 AM EDT Gerri Peterson MD LAB BLOOD ORDERABLES Final Resu lt Performing Organization Address City/[facility] Co de Phone Number [facility] [address] [facility]. [address] * Reticulocyte Count, Auto (10/08/2024 7:41 AM EDT) Retic Ct Pct 1.35 0.50 - 2.00 % 10/08/2024 9:12 AM EDT [facility] Retic Ct Abs 26,190 25,000 - 90,000 /uL 10/08/2024 9:14 AM EDT [facility] Immature Retic Fract 0.37 0.09 - 0.56 10/08/2024 9:12 AM EDT [facility] Whole Blood 10/08/2024 7:41 AM EDT 10/08/2024 8:51 AM EDT Gómez Blanchard MD LAB BLOOD ORDERABLES Final Res ult Performing Organization Address [facility] Co de Phone Number [facility] [address] [employer] [facility]. [address] * (ABNORMAL) Haptoglobin (10/08/2024 7:41 AM EDT) Haptoglobin <30(L) 44 - 215 mg/dL 10/08/2024 8:53 AM EDT [facility] Serum 10/08/2024 7:41 AM EDT 10/08/2024 7:51 AM EDT Kush Posada MD, PhD LAB BLOOD ORDERABLES Final Result Performing Organization Address City/[facility]/ZIP Co de Phone Number [facility] [address] * (ABNORMAL) Lactate dehydrogenase (10/08/2024 5:36 AM EDT) Pathologist [facility] LD 102(L) 110 - 270 U/L 10/08/2024 8:20 AM EDT [facility] Plasma 10/08/2024 5:36 AM EDT 10/08/2024 7:58 AM EDT Gómez Blanchard MD LAB BLOOD ORDERABLES Final Res ult [facility] [address] * Enteric Pathogen Panel (10/07/2024 10:50 PM EDT) Only the most recent of2 resultswithin the time period is included. [facility] Campylobacter Group (C. ecoli, C. jejuni, C. trino) Not Detected Not Detected 10/08/2024 4:40 AM EDT [facility] Salmonella species Not Detected Not Detected 10/08/2024 4:40 AM EDT [facility] Shigella species Not Detected Not Detected 10/08/2024 4:40 AM EDT [facility] Vibrio Group (Vibrio cholerae, Vibrio parahaemolyticus) Not Detected Not Detected 10/08/2024 4:40 AM EDT [facility] Yersinia enterocolitica Not Detected Not Detected 10/08/2024 4:40 AM EDT [facility] Shiga toxin 1 Not Detected Not Detected 10/08/2024 4:40 AM EDT [facility] Shiga toxin 2 Not Detected Not Detected 10/08/2024 4:40 AM EDT [facility] Norovirus Not Detected Not Detected 10/08/2024 4:40 AM EDT [facility] Rotavirus Not Detected Not Detected 10/08/2024 4:40 AM EDT [facility] Comment: The Enteric Pathogen Panel is [...] STOOLS ORDERABLE S Final Result [facility] [address] [facility]. [place] [id number], [facility] * Urine Drug Confirmation (10/07/2024 10:50 PM EDT) Only the most recent of2 resultswithin the time period is included. BARBITURATES NOT PRESENT 10/09/2024 1:33 PM EDT [facility] BENZODIAZEPINES PRESENT 1:33 PM EDT [facility] Nordiazepam 3 ng/mL 10/09/2024 1:33 PM EDT [facility] Temazepam 6 ng/mL 10/09/2024 1:33 PM EDT [facility] CANNABINOIDS NOT PRESENT 10/09/2024 1:33 PM EDT [facility] CONVENTION WORKER STIMULANTS NOT PRESENT 1:33 PM EDT [facility] OPIOID ANALGESICS PRESENT 025 1:33 PM EDT [facility] Oxycodone 300 ng/mL 10/09/2024 1:33 PM EDT [facility] Oxymorphone 32 ng/mL 10/09/2024 1:33 PM EDT [facility] Tramadol >1000 ng/mL 10/09/2024 1:33 PM EDT [facility] OPIOID ANTAGONISTS NOT PRESENT 10/09 1:33 PM EDT [facility] SEDATIVES/MUSCLE RELAXANTS NOT PRESENT 10/09/2024 1:33 PM EDT [facility] TRICYCLIC ANTIDEPRESSANTS NOT PRESENT 10/09/2024 1:33 PM EDT [facility] Urine 10/07/2024 10:5 0 PM EDT 10/08/2024 3:00 AM EDT us Gerri Peterson MD URINE ORDERABLES Final Result [facility] [address] [facility] * Giardia Cryptosporidium Antigens (10/07/2024 10:50 [...] ORDERABLE S Final Result Performing Organization Address City/[facility]/ZIP Co de Phone Number [facility] [address] [place] [facility]. [address] * Comprehensive Drug Screen (10/07/2024 10:50 PM EDT) Only the most recent of2 resultswithin the time period is included. Creatinine, Ur CANCELED mg/dL 10/08/2024 7:09 AM EDT [facility] Comment:The released value 8 7.30 was canceled by YAQUELIN on 10/08/2024 07:09 BARBITURATES CANCELED [facility] Butalbital CANCELED [facility] Phenobarbital [facility] Secobarbital CANCELED [facility] BENZODIAZEPINES [facility] Alprazolam [facility] Clonazepam [facility] Diazepam [facility] Alpha-Hydroxyalprazo mcknight CANCELED [facility] Lorazepam CANCELED [facility] Midazolam CANCELED [facility] Nordiazepam [facility] Oxazepam CANCELED [facility] Temazepam CANCELED [facility] CANNABINOIDS CANCELED [facility] THC-COOH CANCELED [facility] CONVENTION WORKER STIMULANTS CANCELED [facility] Cocaine Metabolite(benzoylec gonine) CANCELED [facility] Amphetamine CANCELED [facility] Methamphetamine CANCELED [facility] MDA CANCELED [facility] MDEA CANCELED [facility] Phencyclindine (PCP) CANCELED [facility] OPIOID ANALGESICS CANCELED [facility] Heroin Metabolite(6-RAMONA) CANCELED [facility] Codeine CANCELED [facility] Morphine CANCELED [facility] Hydrocodone CANCELED [facility] Hydromorphone CANCELED [facility] Oxycodone CANCELED [facility] Oxymorphone CANCELED [facility] Meperidine CANCELED [facility] Normeperidine CANCELED [facility] Methadone CANCELED [facility] Methadone Metabolite (EDDP) CANCELED [facility] Tramadol CANCELED [facility] Fentanyl CANCELED [facility] Norfentanyl CANCELED [facility] Sufentanil CANCELED [facility] OPIOID ANTAGONISTS CANCELED [facility] Buprenorphine CANCELED [facility] Norbuprenorphine CANCELED [facility] Naltrexone CANCELED [facility] Naloxone CANCELED [facility] SEDATIVES/MUSCLE RELAXANTS CANCELED [facility] Carisoprodol CANCELED [facility] Meprobamate CANCELED [facility] TRICYCLIC ANTIDEPRESSANTS CANCELED [facility] Amitriptyline [facility]CELED [facility] Clomipramine CANCELED [facility] Desipramine CANCELED [facility] Doxepin CANCELED [facility] Imipramine CANCELED [facility] Nortriptyline CANCELED [facility] Urine Creatinine CANCELED mg/dL [facility] Nitrite CANCELED [facility] Glutaraldehyde CANCELED [facility] pH CANCELED 10/08/2024 7:09 AM EDT [facility] Comment:The released value 5 .6 was canceled by YAQUELIN on 10/08/2024 07:09 Specific Dunmor CANCELED 10/09/19 7:09 AM EDT [facility] Comment:The released value 1 .009 was canceled by YAQUELIN on 10/08/2024 07:09 Bleach CANCELED [facility] Pyridinium Chlorochromate CANCELED [facility] Urine 10/07/2024 10:5 0 PM EDT 10/08/2024 2:07 AM EDT Narrative [facility] - 10/08/2024 7:09 AM EDT See accn [id number] Gerri Peterson MD URINE ORDERABLES Edited Result - Final [facility] [address] [place] [place] [address], [facility] * (ABNORMAL) Urine Drug Screen Reflex to Confirmation (10/07/2024 10:50 PM EDT) Only the most recent of2 resultswithin the time period is included. Amphetamine, 500 ng/mL Cutoff Negative Negative 10/08/2024 3:00 AM EDT [facility] Barbiturates UR, 300 ng/mL Cutoff Negative Negative 10/08/2024 3:00 AM EDT [facility] Buprenorphine, 5 ng/mL Cutoff Negative Negative 10/08/2024 3:00 AM EDT [facility] Benzodiazepines UR, 300 ng/mL Cutoff Negative Negative 10/08/2024 3:00 AM EDT [facility] Cocaine UR, 300 ng/mL Cutoff Negative Negative 10/08/2024 3:00 AM EDT [facility] Methadone, UR, 300 ng/mL Cutoff Negative Negative 10/08/2024 3:00 AM EDT [facility] Opiates UR, 300 ng/mL Cutoff Negative Negative 10/08/2024 3:00 AM EDT [facility] Oxycodone, 100 ng/mL Cutoff Presumptive Positive(A) Negative 10/08/2024 3:00 AM EDT [facility] Tricyclic Antidepressants, 300 ng/mL Cutoff Negative Negative 10/08/2024 3:00 AM EDT [facility] Comment:This test has been d eveloped and its performance characteristics determined by [facility] which is certified under the [...] EDT [facility] Comment:This is a screening method only and may be associated with false positive and/or false negative results. Results are not definitive without additional confirmatory testing by mass spectrometry. Fentanyl, 2 ng/mL Cutoff Negative Negative 10/08/2024 3:00 AM EDT [facility] Comment:This test has been d eveloped and its performance characteristics determined by [facility] which is certified under the [...] EDT Narrative [facility] - 10/08/2024 3:00 AM EDT CONFIRMATION TO FOLLOW Gerri Peterson MD URINE ORDERABLES Final Result Performing Organization Address [facility]/ZIP Co de Phone Number [facility] [address] * Ova and Parasite Comprehensive w/ Giardia/Crypto (10/07/2024 10:50 PM EDT) O & P Method: Concentration and Trichrome Stain [facility] Results No Amoeba, Ova, Or Parasites Seen. -- O and P examination of additional specimens is recommended only for symptomatic patients, immunosuppressed patients or those with an appropriate travel history. [facility] Feces FECES / Unknown 10/07/2024 1 0:50 PM EDT 10/08/2024 1:53 AM EDT Comment:F Bisi Hernandez DO MICROBIOLOGY - GENERAL ORDERABLE S Final Result Performing Organization Address City/[facility]/ZIP Co de Phone Number [facility] [address] * Hepatitis A IgM (10/07/2024 6:38 PM EDT) Only the most recent of3 resultswithin the time period is included. Hep A IgM Nonreactive Nonreactive 10/07/2024 7:46 PM EDT [facility] Serum 10/07/2024 6:38 PM EDT 10/07/2024 6:52 PM EDT Narrative [facility] - 10/07/2024 7:46 PM EDT IgM anti-HAV not detected. Does not exclude the possibility of exposure to or infection with HAV. Levels of IgM anti-HAV may be below the cut-off in early infection. Gerri Peterson MD LAB BLOOD ORDERABLES Final Resu lt Performing Organization Address [facility] Co de Phone Number [facility] [address] [place] [address]. [address] * Syphilis Screening (Trepia) (10/07/2024 6:37 PM EDT) Treponema Pallidum Negative Negative 10/07/2024 8:27 PM EDT [facility] Comment: No serological evidence of infection with Treponema pallidum (incubating or early primary syphilis cannot be excluded). Serum 10/07/2024 6:37 PM EDT 10/07/2024 6:50 PM EDT Gerri Peterson MD LAB BLOOD ORDERABLES Final Resu lt Performing Organization Address [facility] Co de Phone Number [facility] [address] [facility]. [address] * Phosphatidylethanol Confirmation, B (10/07/2024 6:37 PM EDT) Only the most recent of5 resultswithin the time period is included. PETH 16:0/18.1 (POPETH) <10 Cutoff: 10 ng/mL 10/10/2024 10:42 AM EDT [facility] Comment: Phosphatidylethanol (PEth) homologues result interpretation [...] EDT [facility] Comment: PEth 16:0/18:2 (PLPEth) Reference ranges are not well established PEth Interpretation Negative. 10/10 10:42 AM EDT [facility] Comment: ADDITIONAL INFORMATION This report is intended for use in clinical monitoring and management of patients. It is not intended for use in employment-related testing. This test was developed and its performance characteristics determined by [facility] in a manner consistent with CLIA requirements. This test has not been cleared or approved by the U.S. Food and Drug Administration. Test Performed by: [facility] - [address] [address] [employer] Conductor: Kathy Ortiz Ph.D.; CLIA# [id number] Whole Blood 10/07/2024 6:37 PM EDT 10/10/2024 10:42 AM EDT us Gerri Peterson MD LAB BLOOD ORDERABLES Final Resu lt [facility] [address] [place] [address], [facility] * (ABNORMAL) CMV IgG Antibody (10/07/2024 6:37 PM EDT) CMV IgG Positive(A ) Negative 10/07/2024 8:26 PM EDT [facility] CMV IGG NUM 8.40(H) 0.00 - 0.59 U/mL 10/07/2024 8:26 PM EDT [facility] Serum 10/07/2024 6:37 PM EDT 10/07/2024 6:50 PM EDT us Gerri Peterson MD LAB BLOOD ORDERABLES Final Resu lt [facility] [address] [place] [address], [facility] * (ABNORMAL) Alpha 1 Antitrypsin AAT Quant & Mutation (10/07/2024 6:37 PM EDT) A-1 Antitrypsin 99(L) 101 - 187 mg/dL 10/09/2024 4:28 AM EDT [facility] A-1 Antitrypsin Pheno Comment 10/10/2024 4:05 PM EDT [facility] Comment: A1A Phenotype is consistent with a heterozygous phenotype consisting of one M (normal) allele and one allele that cannot be identified at this time. The unknown allele is not consistent with Z (deficient), S (deficient), or F (deficient). MM Phenotype is considered to be normal , producing normal serum levels of xqggs-2-ybtogckp inhibitor and not associated with clinical disease. [...] - 10/10/2024 4:08 PM EDT PERFORMED AT: [address] [id number] PIANO STRINGER: Bassam Khalil, PhD PHONE: [phone] PERFORMED AT: [address] [id number] PIANO STRINGER: Mandy Abdul MD PHONE: [phone] Gerri Peterson MD LAB BLOOD ORDERABLES Final Resu lt Performing Organization Address City/[facility]/ZIP Co de Phone Number [facility] [address] [place] [address]. [address] * Strongyloides Ab (10/07/2024 6:37 PM EDT) Strongyloides Ab Negative Negative 10/11/19 11:51 AM EDT [facility] Serum 10/07/2024 6:37 PM EDT 10/10/2024 12:07 PM EDT Narrative [facility] - 10/10/2024 12:07 PM EDT PERFORMED AT: [address] [id number] PIANO STRINGER: Mandy Abdul MD PHONE: [phone] Gerri Peterson MD LAB BLOOD ORDERABLES Final Resu lt Performing Organization Address City/[facility]/ZIP Co de Phone Number [facility] [address] [place] [address]. [address] * Ethanol, Serum (10/07/2024 6:37 PM EDT) Only the most recent of3 resultswithin the time period is included. Ethanol <10 0 - 10 mg/dL 10/07/2024 8:36 PM EDT [facility] Serum 10/07/2024 6:37 PM EDT 10/07/2024 6:50 PM EDT us Gerri Peterson MD LAB BLOOD ORDERABLES Final Resu lt Performing Organization Address City/[facility]/ZIP Co de Phone Number [facility] [address] * Katie-Watkins virus early antigen antibody, IgG (10/07/2024 6:37 PM EDT) [facility] EBV Early Antigen Ab, IgG <9.0 0.0 - 8.9 U/mL 10/09/2024 2:16 PM EDT [facility] Comment: Negative < 9.0 Equivocal 9.0 - 10.9 Positive >10.9 Serum Frozen 10/07/2024 6:37 PM EDT 10/09/2024 3:07 PM EDT Narrative [facility] - 10/09/2024 3:07 PM EDT PERFORMED AT: [address] [id number] PIANO STRINGER: Bassam Khalil, PhD PHONE: [phone] Result [facility] Gerri Peterson MD LAB BLOOD ORDERABLES Final Resu lt Performing Organization Address City/[facility] Co de Phone Number [facility] [address] * (ABNORMAL) Varicella zoster antibody, IgG (10/07/2024 6:37 PM EDT) [facility] Varicella IgG Positive( A) Negative S/CO 10/07/2024 8:34 PM EDT [facility] Comment:Result indicates the presence of detectable [...] EDT [facility] Serum 10/07/2024 6:37 PM EDT 10/07/2024 6:50 PM EDT Gerri Peterson MD LAB BLOOD ORDERABLES Final Resu lt Performing Organization Address [facility] Co de Phone Number [facility] [address] [facility]. [address] * TSH (Thyroid Stimulating Hormone) (10/07/2024 6:37 PM EDT) Only the most recent of2 resultswithin the time period is included. TSH 0.81 0.45 - 4.12 uIU/mL 10/07/2024 8:17 PM EDT [facility] Serum 10/07/2024 6:37 PM EDT 10/07/2024 6:50 PM EDT Gerri Peterson MD LAB BLOOD ORDERABLES Final Resu lt Performing Organization Address [facility] Co de Phone Number [facility] [address] [facility]. [address] * IgA (10/07/2024 6:37 PM EDT) Pathologist [facility] IgA 227.0 70.0 - 400.0 mg/dL 10/08/2024 11:07 AM EDT [facility] Comment:Please interpret the se findings in conjunction with clinical findings, protein electrophoresis, and immunotyping/immunofixation results. Serum 10/07/2024 6:37 PM EDT 10/07/2024 6:50 PM EDT Gerri Peterson MD LAB BLOOD ORDERABLES Final Resu lt Performing Organization Address [facility] Co de Phone Number [facility] [address] [place] [facility]. [address] * (ABNORMAL) Lipid Profile (10/07/2024 6:37 [...] EDT [facility] Triglycerides 30 10 - 149 mg/dL 10/07/2024 7:42 PM EDT [facility] HDL 4(L) 60 - 92 mg/dL 10/07/2024 7:42 PM EDT [facility] Comment: LIPID PROFILE INTERPRETATION CHOLESTEROL,TOTAL(mg/dL) DESIRABLE: [...] EDT [facility] Comment:Unable to calculate result either because contributing result(s) are outside of reportable range or are not available. Plasma 10/07/2024 6:37 PM EDT 10/07/2024 7:06 PM EDT Narrative [facility] - 10/07/2024 7:42 PM EDT LDL cholesterol calculated using the Friedewald equation. us Gerri Peterson MD LAB BLOOD ORDERABLES Final Resu lt [facility] [address] [place] [address], [facility] * X-ray Mandible minimum 4-views (10/07/2024 [...] EXAM: US ABDOMEN COMPLETE EXAM: US DUPLEX [id number] COMPLETE INDICATION: elevated bilirubin COMPARISON: Ultrasound and [...] EXAM: US ABDOMEN COMPLETE EXAM: US DUPLEX [id number] COMPLETE INDICATION: elevated bilirubin COMPARISON: Ultrasound and [...] 10/07/2024 4:26 PM EDT Bisi Hernandez DO [facility] US ORDERABLES Final Result * AFP Tumor Marker (10/07/2024 6:00 AM EDT) Only the most recent of3 resultswithin the time period is included. AFP-Tumor Marker 2.0 0.0 - 9.0 ng/mL 10/07/2024 7:11 AM EDT [facility] Serum 10/07/2024 6:00 AM EDT 10/07/2024 6:39 AM EDT Narrative [facility] - 10/07/2024 7:11 AM EDT The testing method for AFP is a chemiluminescent immunoassay manufactured by [employer] Concentrations of AFP obtained by different assay methods or kits may vary and cannot be used interchangeably. AFP results cannot be interpreted as absolute evidence of the presence or absence of malignant disease. us Ni Rivera MD LAB BLOOD ORDERABLES Final Resul t [facility] [address] * Osmolality (10/06/2024 2:50 PM EDT) Osmolality, Measured 304 278 - 305 mOsm/kg 10/06/2024 3:49 PM EDT [facility] Serum 10/06/2024 2:50 PM EDT 10/06/2024 2:56 PM EDT Jani Vanegas MD LAB BLOOD ORDERABLES Final Resul t Performing Organization Address [facility] Co de Phone Number [facility] [address] * CT Head WO contrast (10/06/2024 [...] EDT [facility] Comment:Reference range not established for this test. Urine 10/06/2024 1:25 PM EDT 10/06/2024 1:32 PM EDT Jani Vanegas MD URINE ORDERABLES Final Result Performing Organization Address City/State/[facility] Co de Phone Number [facility] [address] * Potassium, urine, random (10/06/2024 1:25 PM EDT) Only the most recent of3 resultswithin the time period is included. Potassium Urine Random 50.0 mmol/L 10/06/2024 1:56 PM EDT [facility] Comment:Reference range not established for this test. Urine 10/06/2024 1:25 PM EDT 10/06/2024 1:32 PM EDT us Jani Vanegas MD URINE ORDERABLES Final Result Performing Organization Address [facility] Co de Phone Number [facility] [address] * Osmolality, Urine (10/06/2024 1:25 PM EDT) Osmolality, Ur 386 50 - 1,200 mOsm/kg 10/06/2024 1:55 PM EDT [facility] Urine 10/06/2024 1:25 PM EDT 10/06/2024 1:32 PM EDT us Jani Vanegas MD URINE ORDERABLES Final Result Performing Organization Address [facility] de Phone Number [facility] [address] [facility]. [address] * Creatinine, Urine, Random (10/06/2024 1:25 PM EDT) Only the most recent of2 resultswithin the time period is included. Creatinine, Urine 87.40 mg/dL 10/06/2024 1:56 PM EDT [facility] Comment:Reference range not established for this test. Urine 10/06/2024 1:25 PM EDT 10/06/2024 1:32 PM EDT Result Tiburcio Vanegsa MD URINE ORDERABLES Final Result Performing Organization Address [facility] de Phone Number [facility] [address] [facility] * Chloride, urine, random (10/06/2024 1:25 PM EDT) Only the most recent of3 resultswithin the time period is included. Chloride, Ur <15 mmol/L 10/06/2024 1:56 PM EDT [facility] Comment:Reference range not established for this test. Urine 10/06/2024 1:25 PM EDT 10/06/2024 1:32 PM EDT us Jani Vanegas MD URINE ORDERABLES Final Result [facility] [address] [place] [address], [facility] * (ABNORMAL) Comprehensive Metabolic Panel (10/06/2024 7:37 AM EDT) Only the most recent of5 resultswithin the time period is included. Sodium 129(L) 133 - 146 mmol/L 10/06/2024 8:16 AM EDT [facility] Potassium 4.4 3.5 - 5.3 mmol/L 10/06/2024 8:16 AM EDT [facility] Chloride 100 98 - 110 mmol/L 10/06/2024 8:16 AM EDT [facility] CO2 18(L) 21 - 33 mmol/L 10/06/2024 8:16 AM EDT [facility] Anion Gap 11 3 - 16 mmol/L 10/06/2024 8:16 AM EDT [facility] BUN 62(H) 7 - 25 mg/dL 10/06/2024 8:16 AM EDT [facility] Creatinine 3.40(H) 0.60 - 1.30 mg/dL 10/06/2024 8:16 AM EDT [facility] Glucose 98 70 - 100 mg/dL 10/06/2024 8:16 AM EDT [facility] Calcium 9.5 8.6 - 10.3 mg/dL 10/06/2024 8:16 AM EDT [facility] Total Bilirubin 14.3(H) 0.0 - 1.5 mg/dL 10/06/2024 8:16 AM EDT [facility] AST 57(H) 13 - 39 U/L 10/06/2024 8:16 AM EDT [facility] ALT 29 7 - 52 U/L 10/06/2024 8:16 AM EDT [facility] Alkaline Phosphatase 158(H) 36 - 125 U/L 10/06/2024 8:16 AM EDT [facility] Total Protein 5.6(L) 6.4 - 8.9 g/dL 10/06/2024 8:16 AM EDT [facility] Albumin 3.6 3.5 - 5.7 g/dL 10/06/2024 8:16 AM EDT [facility] Osmolality, Calculated 286 278 - 305 mOsm/kg 10/06/2024 8:16 AM EDT [facility] EGFR 22 10/06/2024 8:16 AM EDT [facility] Comment:As of 2021, the estimated GFR [...] ORDERABLES Final Resul t Performing Organization Address City/[facility]/ZIP Co de Phone Number [facility] [address] [facility]. [address] * (ABNORMAL) Salicylate Level (10/06/2024 4:01 AM EDT) Salicylate Lvl <3(L) 10 - 30 mg/dL 10/06/2024 4:58 AM EDT [facility] Serum 10/06/2024 4:01 AM EDT 10/06/2024 4:22 AM EDT Bisi Hernandez DO LAB BLOOD ORDERABLES Final Resul t [facility] [address] * Upper Respiratory Viral/Bacterial Panel-SAW SHARPENER Only (10/06/2024 3:12 AM EDT) Pathologist [facility] Adenovirus Not Detected Not Detected 10/06/2024 11:38 PM EDT [facility] Coronavirus (229E,HKU1,NL63,OC 43) Not Detected Not Detected 10/06/2024 11:38 PM EDT [facility] SARS-CoV-2 Not Detected Not Detected 10/06/2024 11:38 PM EDT [facility] Human Metapneumovirus Not Detected Not Detected 10/06/2024 11:38 PM EDT [facility] Human Rhinovirus/Enterov irus Not Detected Not Detected 10/06/2024 11:38 PM EDT [facility] Influenza A Not Detected Not Detected 10/06/2024 11:38 PM EDT [facility] Influenza A H1 Not Detected Not Detected 10/06/2024 11:38 PM EDT [facility] Influenza A/H1-2009 Not Detected Not Detected 10/06/2024 11:38 PM EDT [facility] Influenza A H3 Not Detected Not Detected 10/06/2024 11:38 PM EDT [facility] Influenza B Not Detected Not Detected 10/06/2024 11:38 PM EDT [facility] Parainfluenza 1 Not Detected Not Detected 10/06/2024 11:38 PM EDT [facility] Parainfluenza 2 Not Detected Not Detected 10/06/2024 11:38 PM EDT [facility] Parainfluenza 3 Not Detected Not Detected 10/06/2024 11:38 PM EDT [facility] Parainfluenza 4 Not Detected Not Detected 10/06/2024 11:38 PM EDT [facility] Resp. Syncycial Virus A Not Detected Not Detected 10/06/2024 11:38 PM EDT [facility] Resp. Syncycial Virus B Not Detected Not Detected 10/06/2024 11:38 PM EDT [facility] Chlamydia pneumoniae Not Detected Not Detected 10/06/2024 11:38 PM EDT [facility] Mycoplasma pneumoniae Not Detected Not Detected 10/06/2024 11:38 PM EDT [facility] Comment: The Respiratory Viral-Bacterial Panel is [...] Test results have been sent to the [facility] in accordance with state requirements. For a fact sheet for healthcare providers, see https://www.fda.gov/media/569676/download. For a fact sheet for patients, see https://www.fda.gov/media/583081/download. Nasopharyngeal Swab NASOPHARYNGEAL SWAB / Unknown 10/06/2024 3:12 AM EDT 10/06/2024 5:41 PM EDT Comment:SAW SHARPENER Bisi Hernandez DO BODY FLUIDS AND STOOLS ORDERABLE S Final Result Performing Organization Address City/[facility]/ZIP Co de Phone Number [facility] [address] * Thyroid Function [place] (10/06/2024 1:04 AM EDT) TSH 0.84 0.45 - 4.12 uIU/mL 10/06/2024 2:20 AM EDT [facility] Serum 10/06/2024 1:0 4 AM EDT 10/06/2024 1:39 AM EDT us Bisi Hernandez DO LAB BLOOD ORDERABLES Final Resul t [facility] [address] * #2 Blood culture-Peripheral site 2 (10/06/2024 1:04 AM EDT) Only the most recent of4 resultswithin the time period is included. Culture Result No Growth After 5 Days [facility] Blood BLOOD SPECIMEN / Unknown 10/06/2024 1:04 AM EDT 10/06/2024 4:57 AM EDT Narrative [facility] - 10/11/2024 5:05 AM EDT Suboptimal volume of blood received. Interpret results with caution. Bisi Hernandez DO MICROBIOLOGY - GENERAL ORDERABLE S Final Result Performing Organization Address City/[facility]/ZIP Co de Phone Number [facility] [address] [place] [address]. [address] * (ABNORMAL) Acetaminophen Level (10/06/2024 1:04 AM EDT) Acetaminophen Level <10(L) 10 - 30 ug/mL 10/06/2024 2:08 AM EDT [facility] Serum 10/06/2024 1:04 AM EDT 10/06/2024 1:30 AM EDT Bisi Hernandez DO LAB BLOOD ORDERABLES Final Resul t [facility] [address] [place] [address]. [address] * Renal Function Panel, Fasting (09/16/2024 12:20 PM EDT) EGFR 31 Anion Gap 14.3 <=30 mmol/L Plasma Result [facility] Gerri Peterson MD LAB BLOOD ORDERABLES Final Resu lt * Glucose, random (09/16/2024 12:20 PM EDT) Glucose 97 60 - 200 mg/dL Plasma Gerri Peterson MD LAB BLOOD ORDERABLES [...] marked LLQ . Under sterileconditions, 5 Fr/7cm [employer] catheter was inserted in a LLQ site [...] ORDERA BLES Final Result Performing Organization Address [facility] de Phone Number [facility] [address] [facility] * Clostridium Difficile Toxin A/B Antigen (09/09/2024 4:58 AM EDT) Pathologist [facility] CDIFF Tox AGN Negative Negative 09/09/2024 1:57 PM EDT [facility] Comment:C. difficile nucleic acid testing is [...] ORDERA BLES Final Result Performing Organization Address [facility] de Phone Number [facility] [address] [facility] * Phosphorus, AM (09/05/2024 7:24 AM EDT) Only the most recent of3 resultswithin the time period is included. Phosphorus 2.1 2.1 - 4.7 mg/dL 09/05/2024 8:25 AM EDT [facility] Plasma 09/05/2024 7:24 AM EDT 09/05/2024 7:38 AM EDT Kiet Ramirez MD LAB BLOOD ORDERABLES Denisse valle Result [facility] [address] [place] [address], [facility] * (ABNORMAL) Basic Metabolic panel, AM (09/05/2024 7:24 AM EDT) Only the most recent of10 resultswithin the time period is included. Sodium 134 133 - 146 mmol/L 09/05/2024 8:25 AM EDT [facility] Potassium 3.6 3.5 - 5.3 mmol/L 09/05/2024 8:25 AM EDT [facility] Chloride 107 98 - 110 mmol/L 09/05/2024 8:25 AM EDT [facility] CO2 19(L) 21 - 33 mmol/L 09/05/2024 8:25 AM EDT [facility] Anion Gap 8 3 - 16 mmol/L 09/05/2024 8:25 AM EDT [facility] BUN 42(H) 7 - 25 mg/dL 09/05/2024 8:25 AM EDT [facility] Creatinine 2.92(H) 0.60 - 1.30 mg/dL 09/05/2024 8:25 AM EDT [facility] Glucose 108(H) 70 - 100 mg/dL 09/05/2024 8:25 AM EDT [facility] Calcium 8.6 8.6 - 10.3 mg/dL 09/05/2024 8:25 AM EDT [facility] Osmolality, Calculated 289 278 - 305 mOsm/kg 09/05/2024 8:25 AM EDT [facility] EGFR 27 09/05/2024 8:25 AM EDT [facility] Comment:As of 2021, the estimated GFR [...] Result Performing Organization Address [facility] Co de Phone Number [facility] [address] [facility]. [address] * Fluid Creatinine (09/04/2024 11:01 AM EDT) Creat, Fluid 3.17 mg/dL 09/04/2024 6:15 PM EDT [facility] Comment:Reference range not established for this test. Abdominal Fluid ABDOMEN / Unknown 025 11:01 AM EDT 09/04/2024 5:25 PM EDT Narrative [facility] - 09/04/2024 6:15 PM EDT This assay has been modified from the demonstrator sewing techniques's specifications and has been validated with performance characteristics determined by [facility] in accordance with federal regulations [...] Result Performing Organization Address [facility] Co de Phone Number [facility] [address] [facility] * Protein, Body fluid (09/04/2024 11:01 AM EDT) Only the most recent of2 resultswithin the time period is included. Protein, Fluid <3.0 g/dL 09/04/2024 6:15 PM EDT [facility] Comment:Reference range not established for this test. Ascitic Fluid ABDOMEN / Unknown 11:01 AM EDT 09/04/2024 5:25 PM EDT Narrative [facility] - 09/04/2024 6:15 PM EDT This assay has been modified from the demonstrator sewing techniques's specifications and has been validated with performance characteristics determined by [facility] in accordance with federal regulations [...] Result Performing Organization Address [facility] Co de Phone Number [facility] [address] [place] [address] * Albumin, fluid (09/04/2024 11:01 AM EDT) Only the most recent of2 resultswithin the time period is included. Albumin, Fluid <1.5 g/dL 09/04/2024 6:15 PM EDT [facility] Comment:Reference range not established for this test. Abdominal Fluid ABDOMEN / Unknown 025 11:01 AM EDT 09/04/2024 5:25 PM EDT Narrative [facility] - 09/04/2024 6:15 PM EDT This assay has been modified from the demonstrator sewing techniques's specifications and has been validated with performance characteristics determined by [facility] in accordance with federal regulations [...] Result Performing Organization Address [facility] de Phone Number [facility] [address] [place] [address] * Lipase (09/04/2024 5:22 AM EDT) Only the most recent of2 resultswithin the time period is included. Lipase 40 4 - 82 U/L 09/04/2024 11:41 AM EDT [facility] Plasma 09/04/2024 5:22 AM EDT 09/04/2024 11:23 AM EDT Kiet Ramirez MD LAB BLOOD ORDERABLES Denisse l Result Performing Organization Address City/[facility]/ZIP Co de Phone Number [facility] [address] [facility] * MRSA/Staph aureus DNA ??? Diagnostic testing for pneumonia (09/03/2024 3:21 PM EDT) MRSA, PCR Negative Negative 09/03/2024 7:48 PM EDT [facility] Staph Aureus, PCR Negative Negative 09/03/2024 7:48 PM EDT [facility] Comment:Test method is a FDA approved amplified DNA assay. Nares Swab BOTH ANTERIOR NARES / Unknown 09/03/2024 3:21 PM EDT 09/03/2024 4:25 PM EDT Narrative [facility] - 09/03/2024 7:48 PM EDT Diagnosis of MRSA Pneumonia->Yes - Place [id number] (this order) Kiet Ramirez MD MICROBIOLOGY - GENERAL OR DERABLES Final Result Performing Organization Address City/[facility] Co de Phone Number [facility] [address] [facility] * (ABNORMAL) Urine Drug Screen without Confirmation, STAT (09/03/2024 3:21 PM EDT) Amphetamine, 500 ng/mL Cutoff Negative Negative 09/03/2024 4:17 PM EDT [facility] Barbiturates UR, 300 ng/mL Cutoff Negative Negative 09/03/2024 4:17 PM EDT [facility] Buprenorphine, 5 ng/mL Cutoff Negative Negative 09/03/2024 4:17 PM EDT [facility] Benzodiazepines UR, 300 ng/mL Cutoff Negative Negative 09/03/2024 4:17 PM EDT [facility] Cocaine UR, 300 ng/mL Cutoff Negative Negative 09/03/2024 4:17 PM EDT [facility] Methadone, UR, 300 ng/mL Cutoff Negative Negative 09/03/2024 4:17 PM EDT [facility] Opiates UR, 300 ng/mL Cutoff Presumptive Positive(A) Negative 09/03/2024 4:17 PM EDT [facility] Oxycodone, 100 ng/mL Cutoff Negative Negative 09/03/2024 4:17 PM EDT [facility] Tricyclic Antidepressants, 300 ng/mL Cutoff Negative Negative 09/03/2024 4:17 PM EDT [facility] Comment:This test has been d eveloped and its performance characteristics determined by [facility] which is certified under the [...] Cutoff Negative Negative 09/03/2024 4:17 PM EDT [facility] Comment:This is a screening method only and may be associated with false positive and/or false negative results. Results are not definitive without additional confirmatory testing by mass spectrometry. Fentanyl, 2 ng/mL Cutoff Negative Negative 09/03/2024 4:17 PM EDT [facility] Comment:This test has been d eveloped and its performance characteristics determined by [facility] which is certified under the [...] Ramirez MD URINE ORDERABLES Final Re sult [facility] [facility] [address] [place] [place] [address], [facility] * Urea Nitrogen, Urine (09/03/2024 3:21 PM EDT) Pathologist [facility] Urea Nitrogen, Ur 350 mg/dL 09/03/2024 4:12 PM EDT [facility] Comment:Reference range not established for this test. Urine 09/03/2024 3:21 PM EDT 09/03/2024 3:30 PM EDT Kiet Ramirez MD URINE ORDERABLES Final Re sult Performing Organization Address [facility] de Phone Number [facility] [address] [facility] * Hepatitis B Core IgM (09/03/2024 1:43 PM EDT) Pathologist [facility] Hep B Core IgM Nonreactive Nonreactive 09/03/2024 3:50 PM EDT [facility] Serum 09/03/2024 1:43 PM EDT 09/03/2024 2:17 PM EDT Narrative [facility] - 09/03/2024 3:50 PM EDT The result will be immediately released to [facility] when marked final. Do you believe the result release to [facility] should be delayed based on either the Preventing Harm or Privacy exceptions of the Cures Rule?->No IgM anti-HBc not detected. Does not exclude the possibility of exposure to or infection with HBV. Kiet Ramirez MD LAB BLOOD ORDERABLES Denisse l Result Performing Organization Address [facility] Co de Phone Number [facility] [address] [facility] * T4, Free (09/03/2024 1:43 PM EDT) Pathologist [facility] Free T4 0.74 0.61 - 1.76 ng/dL 09/03/2024 6:34 PM EDT [facility] Comment:Biotin megadosing (c onsumption >300 mcg/day) may falsely elevate free T4. When indicated, discontinue megadosing for 1 week and repeat testing. Serum 09/03/2024 1:43 PM EDT 09/03/2024 2:17 PM EDT Kiet Ramirez MD LAB BLOOD ORDERABLES Denisse l Result Performing Organization Address [facility]/ZIP Co de Phone Number [facility] [address] [facility] * (ABNORMAL) Urinalysis, Microscopic (09/03/2024 10:28 AM EDT) RBC, UA 1 0 - 3 /HPF 09/03/2024 11:51 AM EDT [facility] WBC, UA 1 0 - 5 /HPF 09/03/2024 11:51 AM EDT [facility] Squam Epithel, UA <1 0 - 5 /HPF 09/03/2024 11:51 AM EDT [facility] Bacteria, UA Occasional (A) None Seen /HPF 09/03/2024 11:51 AM EDT [facility] Mucus, UA Present(A) None Seen /HPF 09/03/2024 11:51 AM EDT [facility] Urine 09/03/2024 10:2 8 AM EDT 09/03/2024 11:24 AM EDT Kiet Ramirez MD URINE ORDERABLES Final Re sult Performing Organization Address [facility] de Phone Number [facility] [address] * (ABNORMAL) Urinalysis-Macroscopic w/Rfx to Microsco (09/03/2024 10:28 AM EDT) Color, UA Yellow Yellow,Straw 09/03/2024 11:51 AM EDT [facility] Clarity, UA Cloudy(A) Clear 09/03/2024 11:51 AM EDT [facility] Specific [place], UA >1.035(H) 1.005 - 1.035 09/03/2024 11:51 AM EDT [facility] pH, UA 6.5 5.0 - 8.0 09/03/2024 11:51 AM EDT [facility] Protein, UA Trace(A) Negative mg/dL 09/03/2024 11:51 AM EDT [facility] Glucose, UA Negative Negative mg/dL 09/03/2024 11:51 AM EDT [facility] Ketones, UA Negative Negative mg/dL 09/03/2024 11:51 AM EDT [facility] Bilirubin, UA Small(A) Negative 09/03/2024 11:51 AM EDT [facility] Blood, UA Negative Negative 09/03/2024 11:51 AM EDT [facility] Nitrite, UA Negative Negative 09/03/2024 11:51 AM EDT [facility] Urobilinogen, UA <2.0 0.2 - 1.9 mg/dL 09/03/2024 11:51 AM EDT [facility] Leukocyte Esterase, UA Negative Negative 09/03/2024 11:51 AM EDT [facility] Urine 09/03/2024 10:2 8 AM EDT 09/03/2024 10:55 AM EDT us Kiet Ramirez MD URINE ORDERABLES Final Re sult [facility] [address] * Lactic acid, venous (09/03/2024 7:55 AM EDT) [facility] Lactate, Shakeel 1.8 0.5 - 2.2 mmol/L 09/03/2024 8:02 AM EDT [facility] Whole Blood VENOUS STRUCTURE / Unknown 09/03/2024 7:55 AM EDT 09/03/2024 7:59 AM EDT Jarrod Alas MD LAB BLOOD ORDERABLES Final Res ult [facility] [address] * High Sensitivity Troponin (60min) (09/03/2024 7:18 AM EDT) Only the most recent of2 resultswithin the time period is included. [facility] High Sensitivity Troponin 14 0 - 20 ng/L 09/03/2024 7:49 AM EDT [facility] Serum 09/03/2024 7:18 AM EDT 09/03/2024 7:18 AM EDT Narrative [facility] - 09/03/2024 7:49 AM EDT Please draw 60min after time that first troponin is drawn. Rommel Garland MD LAB BLOOD ORDERABLES Final Resul t [facility] [address] [place] [address], [facility] * Paracentesis (09/03/2024 7:01 AM EDT) Ana Maria Hernandez MD - 09/03/2024 7:01 AM EDT Rommel Garland MD 09/03/2024 7:02 AM Paracentesis Date/Time: 09/03/2024 7:01 AM Performed by: Rommel Garalnd MD Authorized by: Ana Maria Ramey MD Consent: Consent obtained: Written Consent given by: Patient Risks, benefits, and alternatives were discussed: yes Risks discussed: Bleeding, bowel perforation, infection and pain Alternatives discussed: No treatment Har[place] protocol: Procedure explained and questions answered to [...] MD at 09/03/2024 6:46 AM EDT Rommel Garland MD IMG CT ORDERABLES Final Result * ECG for indication of dyspnea (09/03/2024 5:32 AM EDT) 09/03/2024 5:32 AM EDT Narrative MUSE - 09/03/2024 8:00 AM EDT Ventricular Rate: 90 BPM Atrial Rate: 90 BPM P-R Interval: 190 ms QRS Duration: 104 ms QT: 456 ms QTc: 557 ms P [place]: 76 degrees R [place]: -37 degrees T [place]: 16 degrees Diagnosis Line: INTERPRETATION NOT AVAILABLE--ECG READ IN ER ^ Reconfirmed by PHYSICIAN, ER ([id number]), video editor Tonya BUTLER ([id number]) on 09/03/2024 8:00:24 AM Rommel Garland MD ECG ORDERABLES Edited Result - Final MUSE from Last 3 Months Additional Health Concerns 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, VRE- urine 10/31/202410/13 Insurance [facility] [employer] Member Subscriber Plan / Payer (Ef fective 2015-Present) Name:Blair Anderson Relation to Subscriber:Self Name:Blair Anderson Payer ID:[id number] (NAIC) Type:Not on file Address: [place] [id number] [facility] [employer] Member Subscriber Plan / Payer (Ef fective 2024-Present) Name:Blair Anderson Relation to Subscriber:Self Name:Blair Anderson Payer ID:[id number] Group ID:Not on file Type:Transplant Address: [address] [place] [address] Advance Directives For more information, please contact: [phone] * Full Code (Latest Code Status on [...] 9:55 PM 08/19/2024 4:56 PM Care Teams Detention Officer Relationship Specialty Start Date End Date Enedina Mcguire NP [address] [place] [address] PCP - General Internal Medicine 10/05/24 Maureen Pantoja, RN Txp Post Coordinator Transplant Hepatology 10/28/24
--- OUTSIDE RECORDS SUMMARY | 2024-11-18 07:50 | XMS_ITS | Encounter Summary ---
Author Organization [facility] Address [address] [place] [address] Care Team Providers Care Design Drafter Name Role Phone Enedina Mcguire NP Primary Care Provider [phone] Source Comments This information has been disclosed [...] release of HIV test results or diagnoses. [id number] Health Encounter Details Date Type Department Care Team (Late st Contact Info) Description 10/14/2024 Chart Note [facility] Kidney Transplant at [address] [place] [phone] Dean Robles [facility] [address] Social History Tobacco Use Types Packs/Day Years Used Date Smoking Tobacco: Former Cigarettes Smokeless Tobacco: Current Alcohol Use Standard Drinks/Week Comments Yes 0 (1 standard drink = 0.6 oz pure alcohol) History of alcohol abuse, reports no use in 3 week- typically endorses use as 4 glasses of wine a days Utilities Answer Date Recorded In the past 12 months has [employer], oil, or water [employer] threatened to shut off services in your [...] Guillen 10/14/2024 9:49 AM EDT Dean berman [facility] [address] Case opened TAYLOR Almeida ph [phone] [phone] Liver requested urgent review for slk Approved by [facility] letter to files documented in this encounter Plan of Treatment Upcoming Encounters Date Type Department Care Team (Late st Contact Info) Description 12/05/2024 8:01 AM EDT Hospital Encounter [facility] ENDOSCOPY [address] [place] [phone] Chris Orosco MD [address] [place] [phone] 12/05/2024 8:01 AM EDT - 12/05/2024 8:31 AM EDT Surgery [facility] ENDOSCOPY [address] [place] [phone] Chris Orosco MD [address] [place] [phone] EGD Scheduled Procedures Name Priority Associated Diagnoses [...] as of this encounter Care Teams Design Drafter Relationship Specialty Start Date End Date Enedina Mcguire NP [address] [place] [address] PCP - General Internal Medicine 10/05/24 documented as of this encounter
--- OUTSIDE RECORDS SUMMARY | 2024-11-18 07:51 | XMS_ITS | Encounter Summary ---
Author Organization [facility] Address [address] [place] [address] Care Team Providers Care Pellet Post Inspector Name Role Phone Unavailable Primary Care Provider [...] release of HIV test results or diagnoses. [id number] Health Encounter Details Date Type Department Care Team (Late st Contact Info) Description 09/26/2024 Abstract [facility] [place] [facility] [address] [place] [phone] Gerri Peterson MD [address] [place] [address] Social History Tobacco Use Types Packs/Day Years Used Date Smoking Tobacco: Former Cigarettes Smokeless Tobacco: Current Alcohol Use Standard Drinks/Week Comments Yes 0 (1 standard drink = 0.6 oz pure alcohol) History of alcohol abuse, reports no use in 3 week- typically endorses use as 4 glasses of wine a days Utilities Answer Date Recorded In the past 12 months has [facility] [employer], gas, oil, or water [employer] threatened to shut off services in your [...] Encounter [facility] ENDOSCOPY [address] [place] [phone] Chris Orosco MD [address] [place] [phone] 12/05/2024 8:01 AM EDT - 12/05/2024 8:31 AM EDT Surgery [facility] ENDOSCOPY [address] [place] [phone] Chris Orosco MD [address] [place] [phone] EGD Scheduled Procedures Name Priority Associated Diagnoses Date/Ti me EGD Cirrhosis of liver with ascites, unspecified hepatic cirrhosis type ([facility]) 12/05/2024 8:01 AM EDT documented as of this encounter Visit Diagnoses Not on filedocumented in this encounter Additional Health Concerns Infection Onset Date Last Indicated Resolved Time C. difficile 09/09/2024 09/09/2024 10/27/2024 8:30 AM EDT Assessment Noted Time PHQ-9 Depression Total Score: 16 025 11:00 AM EDT documented as of this encounter
--- OUTSIDE RECORDS SUMMARY | 2024-11-18 07:51 | XMS_ITS | Encounter Summary ---
Author Organization [facility] Address [address] [place] [address] Care Team Providers Care Family Assistant Name Role Phone Enedina Mcguire NP Primary Care Provider [phone] Source Comments This information has been disclosed [...] release of HIV test results or diagnoses. [id number] Encounter Details Date Type Department Care Team (Late st Contact Info) Description 10/07/2024 Chart Note [facility] Kidney Transplant at [address] [place] [phone] Anny Cote RN Received notice of [...] Recorded In the past 12 months has [employer], gas, oil, or water [employer] threatened to shut off services in your [...] Hospital Encounter [facility] ENDOSCOPY [address] [place] [address] Chris Orosco MD [address] [place] [phone] 12/05/2024 8:01 AM EDT - 12/05/2024 8:31 AM EDT Surgery [facility] ENDOSCOPY [address] [place] [address] Chris Orosco MD [address] [place] [phone] EGD Scheduled Procedures Name Priority Associated Diagnoses Date/Ti me EGD Cirrhosis of liver with ascites, unspecified hepatic cirrhosis type ([facility]) 12/05/2024 8:01 AM EDT documented as [...] as of this encounter Care Teams Family Assistant Relationship Specialty Start Date End Date Enedina Mcguire NP [address] [place], [place] [phone] PCP - General Internal Medicine 10/05/24 documented as of this encounter
--- OUTSIDE RECORDS SUMMARY | 2024-11-18 07:51 | XMS_ITS | Encounter Summary ---
Author Organization [facility] Address [address] [place] [address] Care Team Providers Care Cash Grain Farmer Name Role Phone Unavailable Primary Care Provider [...] release of HIV test results or diagnoses. [id number] Health Encounter Details Date Type Department Care Team (Late st Contact Info) Description 09/25/2024 Orders Only [facility] Liver Transplant at [address] [phone] Mary Butler, RN Pre-transplant evaluation for chronic [...] Recorded In the past 12 months has [employer], gas, oil, or water [employer] threatened to shut off services in your [...] [facility] ENDOSCOPY [address] [place] [phone] Chris Orosco MD [address] [place] [phone] 12/05/2024 8:01 AM EDT - 12/05/2024 8:31 AM EDT Surgery [facility] ENDOSCOPY [address] [place] [phone] Chris Orosco MD [address] [place] [phone] EGD Scheduled Procedures Name Priority Associated Diagnoses [...] 09/29/2024 12:39 PM EDT [facility] INSPECTOR TECHNICIAN STIMULANTS NOT PRESENT 12:39 PM EDT [facility] [...] Ur 122.10 mg/dL 09/26/2024 11:30 AM EDT [facility] Comment:Reference range not established for this test. pH 5.8 4.7 - 7.8 09/26/2024 11:30 AM EDT [facility] Specific [place] 1.010 1.003 - 1.035 09/26/2024 11:30 AM EDT [facility] Urine 09/25/2024 11:5 5 AM EDT 09/25/2024 12:19 PM EDT Narrative [facility] - 09/29/2024 12:39 PM EDT This test has been developed and its performance characteristics determined by [facility] which is certified under the [...] Chinedu Sidhu MD URINE ORDERABLES Final Result [facility] [address] * Phosphatidylethanol Confirmation, B (09/25/2024 11:55 AM EDT) PETH 16:0/18.1 (POPETH) <10 Cutoff: 10 ng/mL 09/29/2024 12:24 PM EDT [facility] Comment: Phosphatidylethanol (PEth) homologues [...] Cutoff: 10 ng/mL 09/29/2024 12:24 PM EDT [facility] Comment: PEth 16:0/18:2 (PLPEth) Reference ranges are not well established PEth Interpretation Negative. 09/29 12:24 PM EDT [facility] Comment: ADDITIONAL INFORMATION This report is intended for use in clinical monitoring and management of patients. It is not intended for use in employment-related testing. This test was developed and its performance characteristics determined by [facility] in a manner consistent with CLIA requirements. This test has not been cleared or approved by the U.S. Food and Drug Administration. Test Performed by: [facility] [place] [address] Web Architect: Kathy Ortiz Ph.D.; CLIA# [id number] Whole Blood 09/25/2024 11:5 5 AM EDT 09/29/2024 12:24 PM EDT Chinedu Sidhu MD LAB BLOOD ORDERABLES Final Re sult [facility] [address] documented in this encounter Visit Diagnoses [...]
--- OUTSIDE RECORDS SUMMARY | 2024-11-18 07:51 | XMS_ITS | Encounter Summary ---
Author Organization [facility] Address [facility] [place] [address] Care Team Providers Care Disc Pad Knockout Worker Name Role Phone Unavailable Primary Care [...] release of HIV test results or diagnoses. [id number] Reason for Visit * Reason Comments Appointment Encounter Details Date Type Department Care Team (Late st Contact Info) Description 09/25/2024 Telephone [facility] Interventional Radiology [address] [place] [phone] [place], [place] Appointment Social History [...] Recorded In the past 12 months has [employer], gas, oil, or water [employer] threatened to shut off services in your [...] IR Procedure, lvm to return call to [phone] opt 1 to schedule. documented in this encounter Plan of Treatment Upcoming Encounters Date Type Department Care Team (Late st Contact Info) Description 12/05/2024 8:01 AM EDT Hospital Encounter [facility] ENDOSCOPY [address] [place] [address] Chris Orosco MD [address] [place] [phone] 12/05/2024 8:01 AM EDT - 12/05/2024 8:31 AM EDT Surgery [facility] ENDOSCOPY [address] [place] [phone] Chris Orosco MD [address] [place] [phone] EGD Scheduled Procedures Name Priority Associated Diagnoses Date/Ti me EGD Cirrhosis of liver with ascites, unspecified hepatic cirrhosis type ([facility]) 12/05/2024 8:01 AM EDT documented as of this encounter Visit Diagnoses Not on filedocumented in this encounter Additional Health Concerns Infection Onset Date Last Indicated Resolved Time C. difficile 09/09/2024 09/09/2024 10/27/2024 8:30 AM EDT documented as of this encounter
--- OUTSIDE RECORDS SUMMARY | 2024-11-18 07:51 | XMS_ITS | Encounter Summary ---
Author Organization [facility] Address [address] [place] [address] Care Team Providers Care Learning And Development Assistant Name Role Phone Enedina Mcguire NP Primary Care Provider [phone] Source Comments This information has been disclosed [...] release of HIV test results or diagnoses. [id number] Encounter Details Date Type Department Care Team (Late st Contact Info) Description 10/07/2024 Chart Note [facility] Kidney Transplant at [address] [place] [phone] Chey Nicole MA This MA received new [...] In the past 12 months has [employer], gas, oil, or water [employer] threatened to shut off services in your [...] PT. Will FU once financially cleared. An [employer] fax was sent to [facility] and or referring office to notify of referral acceptance. documented in this encounter Plan of Treatment Upcoming Encounters Date Type Department Care Team (Late st Contact Info) Description 12/05/2024 8:01 AM EDT Hospital Encounter [facility] ENDOSCOPY [address] [place] [phone] Chris Orosco MD [address] [place] [phone] 12/05/2024 8:01 AM EDT - 12/05/2024 8:31 AM EDT Surgery [facility] ENDOSCOPY [address] [place] [phone] Chris Orosco MD [address] [place] [phone] EGD Scheduled Procedures Name Priority Associated Diagnoses Date/Ti me EGD Cirrhosis of liver with ascites, unspecified hepatic cirrhosis type ([facility]) 12/05/2024 8:01 AM EDT documented as [...] as of this encounter Care Teams Learning And Development Assistant Relationship Specialty Start Date End Date Enedina Mcguire NP [address] [place] [address] PCP - General Internal Medicine 10/05/24 documented as of this encounter
--- OUTSIDE RECORDS SUMMARY | 2024-11-18 07:51 | XMS_ITS | Encounter Summary ---
Author Organization [facility] Address [address] [place] [address] Care Team Providers Care Sap Enterprise Portal Consultant Name Role Phone Unavailable Primary Care [...] release of HIV test results or diagnoses. [id number] Health Encounter Details Date Type Department Care Team (Late st Contact Info) Description 09/24/2024 Orders Only [facility] [place] [facility] [address] [place] [phone] Gerri Peterson MD [address] [place] [address] Cirrhosis of liver with ascites, [...] Recorded In the past 12 months has [employer] electric, gas, oil, or water company threatened [...] Hospital Encounter [facility] ENDOSCOPY [address] [place] [address] Chris Orosco MD [address] [place] [phone] 12/05/2024 8:01 AM EDT - 12/05/2024 8:31 AM EDT Surgery [facility] ENDOSCOPY [address] [place] [address] Chris Orosco MD [address] [place] [address] EGD Scheduled Procedures Name Priority Associated Diagnoses [...]
--- OUTSIDE RECORDS SUMMARY | 2024-11-18 07:51 | XMS_ITS | Encounter Summary ---
Author Organization [facility] Address [facility] [place] [address] Care Team Providers Care Geomagnetician Name Role Phone Enedina Mcguire NP Primary Care Provider [phone] Source Comments This information has been disclosed [...] release of HIV test results or diagnoses. [id number] Reason for Visit * Reason Comments After Hours Call Encounter Details Date Type Department Care Team ([facility] Contact Info) Description 10/05/2024 Telephone [facility] PATIENT SERVICES [address] [place] [address] Unknown, Attending Provider After Hours [...] Recorded In the past 12 months has [employer], gas, oil, or water [employer] threatened to shut off services in your [...] local ER w/ plans to transfer to [facility] if higher level of care required. Will [...] Relationship of Caller to Patient and Callback: [phone]()[phone] Patient of: DR. LINARES Nature of Call: STATES PT IS SHOWING SIGNS OF CONFUSION. PLEASE ADVISE. Permit Coordinator Provider Contacted: DR. RETANA Time and Method [...] Encounter [facility] ENDOSCOPY [address] [place] [address] Chris Orosco MD [address] [place] [phone] 12/05/2024 8:01 AM EDT - 12/05/2024 8:31 AM EDT Surgery [facility] ENDOSCOPY [address] [place] [phone] Chris Orosco MD [address] [place] [phone] EGD Scheduled Procedures Name Priority Associated Diagnoses [...] documented as of this encounter Care Teams Geomagnetician Relationship Specialty Start Date End Date Enedina Mcguire NP [address] [place] [address] PCP - General Internal Medicine 10/05/24 documented as of this encounter
--- OUTSIDE RECORDS SUMMARY | 2024-11-18 07:51 | XMS_ITS | Encounter Summary ---
Author Organization [facility] Address [address] [place] [address] Care Team Providers Care Heel Turner Name Role Phone Enedina Mcguire NP Primary Care Provider [phone] Source Comments This information has been disclosed [...] release of HIV test results or diagnoses. [id number] Health Encounter Details Date Type Department Care Team (Late st Contact Info) Description 10/09/2024 Chart Note [facility] Kidney Transplant at [address] [place] [phone] Dean Robles [facility] [phone] Social History Tobacco Use Types Packs/Day Years Used Date Smoking Tobacco: Former Cigarettes Smokeless Tobacco: Current Alcohol Use Standard Drinks/Week Comments Yes 0 (1 standard drink = 0.6 oz pure alcohol) History of alcohol abuse, reports no use in 3 week- typically endorses use as 4 glasses of wine a days Utilities Answer Date Recorded In the past 12 months has [employer], [employer], oil, or water [employer] threatened to shut off services in your [...] Guillen 10/09/2024 10:37 AM EDT Dean berman [facility] [phone] Called Cammie Wing [phone] Advised of brandon martínez she was aware Assigning a cm to call me Requested all clinical Advised this is now a SLK Pending cm call back documented in this encounter Plan of Treatment Upcoming Encounters Date Type Department Care Team (Late st Contact Info) Description 12/05/2024 8:01 AM EDT Hospital Encounter [facility] ENDOSCOPY [address] [place] [address] Chris Orosco MD [address] [place] [phone] 12/05/2024 8:01 AM EDT - 12/05/2024 8:31 AM EDT Surgery [facility] ENDOSCOPY [address] [place] [phone] Chris Orosco MD [address] [place] [phone] EGD Scheduled Procedures Name Priority Associated Diagnoses [...] documented as of this encounter Care Teams Heel Turner Relationship Specialty Start Date End Date Enedina Mcguire NP [address] [place] [address] PCP - General Internal Medicine 10/05/24 documented as of this encounter
--- OUTSIDE RECORDS SUMMARY | 2024-11-18 07:51 | XMS_ITS | Encounter Summary ---
Author Organization [facility] Address [address] [place] [address] Care Team Providers Care Commercial Door Installer Name Role Phone Unavailable Primary Care [...] release of HIV test results or diagnoses. [id number] Health Encounter Details Date Type Department Care Team (Late st Contact Info) Description 09/30/2024 Social Work [facility] Liver Transplant at [address] [address] Kaylin Willard MSW Social History Tobacco Use [...] Recorded In the past 12 months has [employer], gas, oil, or water company threatened to [...] Liver Transplant Patient has been referred to [facility] for liver transplant evaluation. Patient was evaluated by transplant neonatal social worker on 09/25/2024 and it was determined that patient will need to complete 12 weeks of CD treatment. Patient is engaged in CD treatment with: [facility] Mary Marie [phone] Patient has been attending an IOP program [...] treatment for him. Thank you NUBIA Barros, [facility] documented in this encounter Plan of Treatment Upcoming Encounters Date Type Department Care Team (Late st Contact Info) Description 12/05/2024 8:01 AM EDT Hospital Encounter [facility] ENDOSCOPY [address] [place] [address] Chris Orosco MD [address] [place] [phone] 12/05/2024 8:01 AM EDT - 12/05/2024 8:31 AM EDT Surgery [facility] ENDOSCOPY [address] [place] [address] Chris Orosco MD [address] [place] [phone] EGD Scheduled Procedures Name Priority Associated Diagnoses [...]
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
--- OUTSIDE RECORDS SUMMARY | 2024-11-18 07:51 | XMS_ITS | Encounter Summary ---
Author Organization [facility] Address [address] [place] [address] Care Team Providers Care Computer Operations Analyst Name Role Phone Unavailable Primary Care [...] release of HIV test results or diagnoses. [id number] Health Encounter Details Date Type Department Care Team (Late st Contact Info) Description 10/01/2024 Telephone [facility] Liver Transplant at [address] [address] Armand Salinas, RN Social History Tobacco Use [...] Recorded In the past 12 months has [employer], gas, oil, or water company threatened to [...] Description 12/05/2024 8:01 AM EDT Hospital Encounter [facility] ENDOSCOPY [address] [place] [address] Chris Orosco MD [address] [place] [phone] 12/05/2024 8:01 AM EDT - 12/05/2024 8:31 AM EDT Surgery [facility] ENDOSCOPY [address] [place] [address] Chris Orosco MD [address] [place] [phone] EGD Scheduled Procedures Name Priority Associated Diagnoses [...]
--- OUTSIDE RECORDS SUMMARY | 2024-11-18 07:51 | XMS_ITS | Encounter Summary ---
Author Organization [facility] Address [address] [place] [address] Care Team Providers Care Donor Services Manager Name Role Phone Enedina Mcguire NP Primary Care Provider [phone] Source Comments This information has been disclosed [...] release of HIV test results or diagnoses. [id number] Health Encounter Details Date Type Department Care [...] Recorded In the past 12 months has [employer], oil, or water [employer] threatened to shut off services in your [...] Description 12/05/2024 8:01 AM EDT Hospital Encounter [facility] ENDOSCOPY [address] [place] [address] Chris Orosco MD [address] [place] [phone] 12/05/2024 8:01 AM EDT - 12/05/2024 8:31 AM EDT Surgery [facility] ENDOSCOPY [address] [place] [address] Chris Orosco MD [address] [place] [phone] EGD Scheduled Procedures Name Priority Associated Diagnoses Date/Ti me EGD Cirrhosis of liver with ascites, unspecified hepatic cirrhosis type ([facility]) 12/05/2024 8:01 AM EDT documented as [...] documented as of this encounter Care Teams Donor Services Manager Relationship Specialty Start Date End Date Enedina Mcguire NP [address] [place] [address] PCP - General Internal Medicine 10/05/24 documented as of this encounter
--- OUTSIDE RECORDS SUMMARY | 2024-11-18 07:51 | XMS_ITS | Encounter Summary ---
Author Organization [facility] Address [address] [place] [address] Care Team Providers Care Director Of Food And Nutrition Services Name Role Phone Enedina Mcguire NP Primary Care Provider [phone] Source Comments This information has been disclosed [...] release of HIV test results or diagnoses. [id number] Health Encounter Details Date Type Department Care Team (Late st Contact Info) Description 10/07/2024 Chart Note [facility] Kidney Transplant at [address] [address] Anny Cote RN Simultaneous Liver-Kidney Transplant Referral [...] Recorded In the past 12 months has [employer], gas, oil, or water [employer] threatened to shut off services in your [...] Financial Clearance is pending sent to financial services rep [x] HLA testing to be ordered once [...] Dialysis Unit: (Not currently on dialysis) Outside power line lineman: Dr. Curran, Yovanny Nicholson MD Routed to kidney referral intake team. documented in this encounter Plan of Treatment Upcoming Encounters Date Type Department Care Team (Late st Contact Info) Description 12/05/2024 8:01 AM EDT Hospital Encounter [facility] ENDOSCOPY [address] [place] [address] Chris Orosco MD [address] [place] [phone] 12/05/2024 8:01 AM EDT - 12/05/2024 8:31 AM EDT Surgery [facility] ENDOSCOPY [address] [place] [phone] Chris Orosco MD [address] [place] [phone] EGD Scheduled Procedures Name Priority Associated [...] of this encounter Care Teams Director Of Food And Nutrition Services Relationship Specialty Start Date End Date Enedina Mcguire NP [address] [place] [address] PCP - General Internal Medicine 10/05/24 documented as of this encounter
--- OUTSIDE RECORDS SUMMARY | 2024-11-18 07:51 | XMS_ITS | Encounter Summary ---
Author Organization [facility] Address [address] [place] [address] Care Team Providers Care It Infrastructure Manager Name Role Phone Enedina Mcguire NP Primary Care Provider [phone] Source Comments This information has been disclosed [...] release of HIV test results or diagnoses. [id number] Health Encounter Details Date Type Department Care Team (Late st Contact Info) Description 10/07/2024 Chart Note [facility] Liver Transplant at [address] [place] [phone] Alexandro Sams, RN Spoke with Julien Anderson [...] Recorded In the past 12 months has [employer], gas, oil, or water [employer] threatened to shut off services in your [...] [facility] [address] [place] [address] Chris Orosco MD [address] [place] [phone] 12/05/2024 8:01 AM EDT - 12/05/2024 8:31 AM EDT Surgery [facility] ENDOSCOPY [address] [place] [address] Chris Orosco MD [address] [place] [phone] EGD Scheduled Procedures Name Priority Associated [...] as of this encounter Care Teams It Infrastructure Manager Relationship Specialty Start Date End Date Enedina Mcguire NP [address] [place] [address] PCP - General Internal Medicine 10/05/24 documented as of this encounter
--- OUTSIDE RECORDS SUMMARY | 2024-11-18 07:51 | XMS_ITS | Encounter Summary ---
Author Organization [facility] Address [address] [place] [address] Care Team Providers Care Proposal Analyst Name Role Phone Enedina Mcguire NP Primary Care Provider [phone] Source Comments This information has been disclosed [...] release of HIV test results or diagnoses. [id number] Health Encounter Details Date Type Department Care Team (Late st Contact Info) Description 10/09/2024 Chart Note [facility] Kidney Transplant at [address] [place] [phone] Dean [facility] [phone] call from Elle [facility] fx [phone] Social History Tobacco Use Types Packs/Day Years Used Date Smoking Tobacco: Former Cigarettes Smokeless Tobacco: Current Alcohol Use Standard Drinks/Week Comments Yes 0 (1 standard drink = 0.6 oz pure alcohol) History of alcohol abuse, reports no use in 3 week- typically endorses use as 4 glasses of wine a days Utilities Answer Date Recorded In the past 12 months has [employer], gas, oil, or water company threatened to [...] - 10/09/2024 11:57 AM EDT Dean [facility] [phone] call from Elle the R fx [phone] Set her all clinical Rquesting a urgent review for liver txp UMR/optum case opened 10/05/24 Pends response documented in this encounter Plan of Treatment Upcoming Encounters Date Type Department Care Team (Late st Contact Info) Description 12/05/2024 8:01 AM EDT Hospital Encounter [facility] ENDOSCOPY [address] [place] [address] Chris Orosco MD [address] [place] [phone] 12/05/2024 8:01 AM EDT - 12/05/2024 8:31 AM EDT Surgery [facility] ENDOSCOPY [address] [place] [address] Chris Orosco MD [address] [place] [phone] EGD Scheduled Procedures Name Priority Associated Diagnoses [...] documented as of this encounter Care Teams Proposal Analyst Relationship Specialty Start Date End Date Enedina Mcguire NP [address] [place] [address] PCP - General Internal Medicine 10/05/24 documented as of this encounter
--- OUTSIDE RECORDS SUMMARY | 2024-11-18 07:52 | XMS_ITS | Encounter Summary ---
Author Organization [facility] Address [address] [place] [address] Care Team Providers Care Web Ui Software Engineer Name Role Phone Enedina Mcguire NP Primary Care Provider [phone] Source Comments This information has been disclosed [...] release of HIV test results or diagnoses. [id number] Health Encounter Details Date Type Department Care Team (Late st Contact Info) Description 10/09/2024 Social Work [facility] Liver Transplant at [address] [phone] Kaylin Willard MSW Social History Tobacco Use [...] Recorded In the past 12 months has [employer], gas, oil, or water [employer] threatened to shut off services in your [...] Liver Transplant Patient has been referred to [facility] for liver transplant evaluation. 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 Patient is engaged in CD treatment with: [facility] [phone] SW met with patient and spouse at [...] during hospitalization pending mental status. NUBIA Barros, BONE COOKING OPERATOR documented in this encounter Plan of Treatment Upcoming Encounters Date Type Department Care Team (Late st Contact Info) Description 12/05/2024 8:01 AM EDT Hospital Encounter [facility] ENDOSCOPY [address] [place] [address] Chris Orosco MD [address] [place] [phone] 12/05/2024 8:01 AM EDT - 12/05/2024 8:31 AM EDT Surgery [facility] ENDOSCOPY [address] [place] [address] Chris Orosco MD [address] [place] [phone] EGD Scheduled Procedures Name Priority Associated Diagnoses [...] as of this encounter Care Teams Web Ui Software Engineer Relationship Specialty Start Date End Date Enedina Mcguire NP [address] [place] [address] PCP - General Internal Medicine 10/05/24 documented as of this encounter
--- OUTSIDE RECORDS SUMMARY | 2024-11-18 07:53 | XMS_ITS | Data Portability ---
Author Organization [facility],, Main Office Address [address] [place] [address] Assessment No assessment recorded. Plan of Treatment [...] Available No t Available BD Regular Bevel [place] 18 gauge x 1 active Not Available [...] Body weight Heart rate Body temperature Systolic And Diastolic Provider Name and Address Organization Details Last Updated DateTime 3 193.04 cm 29.1 kg/m2 225825. 58 g 112 /min 97.7 [degF] 141/84 mm[Hg] [facility], 3 13:14:11 Date Recorded Body height Body mass index (BMI) Body weight Heart rate Body temperature Systolic And Diastolic Provider Name and Address Organization Details Last Updated DateTime 4 193.04 cm 30.4 kg/m2 067672. 09 g 92 /min 97.5 [degF] 176/104 mm[Hg] [facility], 4 14:06:31 Date Recorded Body temperature Provider Name a nd Address Organization Details Last Updated DateTime 12/27/2020 99.5 [degF] Cuca Strickland [facility], 12/27/2020 13:41:33 Date Recorded Body weight Heart rate Body temperature Systolic And Diastolic Provider Name and Address Organization Details Last Updated DateTime 04/03/2022 246335.95 g 93 /min 97.6 [degF] 114/83 mm[Hg] Ashley Wallace [facility], 04/03/2022 14:42:57 Social History None recorded. Functional Status None recorded. Mental Status None recorded. Family History Nothing Reported. Medical History No medical history recorded. Past Encounters Encounter ID Performer Location Encounter Start Date Encounter Closed Date Diagnosis/Indication Diagnosis SNOMED-CT Code Diagnosis ICD10 Code Diagnosis Note [id number] Yung Felipe DO Main Office [address] [place] [address] 12/27/2020 13:24:24 12/27/2020 14:00:19 Evaluation of semen fertility 731539628 N46.9 semen analysis [id number] Yung Felipe DO Main Office [address] [facility] [address] 07/04/2021 14:47:56 07/04/2021 16:00:05 Evaluation of semen fertility 644718047 N46.9 semen analysis [id number] Yung Felipe DO Main Office [address] [place] [address] 05/31/2022 13:04:00 05/31/2022 13:50:01 Evaluation of semen fertility 268140654 N46.9 semen analysis + viability: analysis by Dr. Ruiz [id number] Yung Felipe DO Main Office [address] [place] [address] 10/22/2023 13:58:48 10/22/2023 14:31:18 Evaluation of semen fertility 407775867 N46.9 semen analysis + viability: analysis by [...] analysis Yung Felipe DO [address], [place], [address], [facility], 08/06/2021 23:24:22 05/31/2022 text/html semen analysis + viability Loraine L. [address], [place], [address], [facility], 05/31/2022 13:57:30 10/22/2023 text/html semen analysis [address], [place], [address], [facility], 10/22/2023 16:29:00
[2024-11-18 07:55] LABS: Hematocrit 30.8 % (42.0-52.0); Hemoglobin 10.2 g/dL (14.1-18.0); Immature Granulocytes % 1.0 %; Mean Corpuscular HGB Conc 33.1 g/dL (31.8-35.4); Mean Corpuscular Hemoglobin 31.2 pg (27.0-31.2); Mean Corpuscular Volume 94.2 fl (80-94); Nucleated Red Blood Cells % 0 %; Platelet Count 132 K/mm3 (142-424); Red Blood Count 3.27 M/mm3 (4.60-6.20); Red Cell Distribution Width-SD 66.4 fL; White Blood Count 6.0 K/mm3 (4.8-10.8)
--- OUTSIDE RECORDS SUMMARY | 2024-11-18 07:55 | XMS_ITS | Encounter Summary ---
Author Organization [facility] Address [address] [place] [address] Care Team Providers Care Confidential Investigator Name Role Phone Enedina Mcguire NP Primary Care Provider [phone] Source Comments This information has been disclosed [...] release of HIV test results or diagnoses. [id number] Reason for Visit * Reason Comments DDLT patient instructions Encounter Details Date Type Department Care Team (Late st Contact Info) Description 10/25/2024 Telephone [facility] Liver Transplant at [address] [address] Krissy Crowell RN DDLT patient [...] Recorded In the past 12 months has [employer], gas, oil, or water [employer] threatened to shut off services in your [...] Patient will arrive to PACU, ETA is [phone]. Nursing Pure Culture Operator (Humaira), PACU (Emily), SICU (Lizeth), OR (Omar), txp sgy resident (Aysha), and admitting (Loraine) called with updates on patient arrival. documented in this encounter Plan of Treatment Upcoming Encounters Date Type Department Care Team (Late st Contact Info) Description 12/05/2024 8:01 AM EDT Hospital Encounter [facility] ENDOSCOPY [address] [place] [address] Chris Orosco MD [address] [place] [address] 12/05/2024 8:01 AM EDT - 12/05/2024 8:31 AM EDT Surgery [facility] ENDOSCOPY [address] [place] [address] Chris Orosco MD [address] [place] [phone] EGD Scheduled Procedures Name Priority Associated Diagnoses [...] documented as of this encounter Care Teams Confidential Investigator Relationship Specialty Start Date End Date Enedina Mcguire NP [address] [place] [address] PCP - General Internal Medicine 10/05/24 documented as of this encounter
--- OUTSIDE RECORDS SUMMARY | 2024-11-18 07:55 | XMS_ITS | Encounter Summary ---
Author Organization [facility] Address [address] [place] [address] Care Team Providers Care Machine Welt Butter Name Role Phone Enedina Mcguire NP Primary Care Provider [phone] Source Comments This information has been disclosed [...] release of HIV test results or diagnoses. [id number] Health Encounter Details Date Type Department Care [...] Recorded In the past 12 months has [employer], oil, or water [employer] threatened to shut off services in [...] [facility] ENDOSCOPY [address] [place] [address] Chris Orosco MD [address] [place] [phone] 12/05/2024 8:01 AM EDT - 12/05/2024 8:31 AM EDT Surgery [facility] ENDOSCOPY [address] [place] [address] Chris Orosco MD [address] [place] [phone] EGD Scheduled Procedures Name Priority Associated Diagnoses [...] as of this encounter Care Teams Machine Welt Butter Relationship Specialty Start Date End Date Enedina Mcguire NP [address] [place] [address] PCP - General Internal Medicine 10/05/24 documented as of this encounter
--- OUTSIDE RECORDS SUMMARY | 2024-11-18 07:55 | XMS_ITS | Encounter Summary ---
Author Organization [facility] Address [address] [place] [address] Care Team Providers Care Design Engineering Manager Name Role Phone Eendina Mcguire NP Primary Care Provider [phone] Source Comments This information has been disclosed [...] release of HIV test results or diagnoses. [id number] Encounter Details Date Type Department Care Team (Late st Contact Info) Description 10/26/2024 Chart Note [facility] Liver Transplant at [address] [place] [phone] Geri Vasquez, ЮЛИЯ Social History Tobacco Use [...] Recorded In the past 12 months has [employer], gas, oil, or water [employer] threatened to shut off services in your [...] 12/05/2024 8:01 AM EDT Hospital Encounter [facility] ENDOSCOPY [address] [place] [address] Chris Orosco MD [address] [place] [phone] 12/05/2024 8:01 AM EDT - 12/05/2024 8:31 AM EDT Surgery [facility] ENDOSCOPY [address] [place] [address] Chris Orosco MD [address] [place] [phone] EGD Scheduled Procedures Name Priority Associated Diagnoses [...] as of this encounter Care Teams Design Engineering Manager Relationship Specialty Start Date End Date Enedina Mcguire NP [address] [place] [address] PCP - General Internal Medicine 10/05/24 documented as of this encounter
--- OUTSIDE RECORDS SUMMARY | 2024-11-18 07:56 | XMS_ITS | Encounter Summary ---
Author Organization [facility] Address [facility] [place] [address] Care Team Providers Care Theater Company Producer Name Role Phone Unavailable Primary Care Provider [...] release of HIV test results or diagnoses. [id number] Reason for Visit * Reason Comments After Hours Call Encounter Details Date Type Department Care Team (Late st Contact Info) Description 09/02/2024 Telephone [facility] PATIENT [facility] [address] [place] [address] Unknown, Attending Provider After Hours [...] Recorded In the past 12 months has [employer], gas, oil, or water [employer] threatened to shut off services in your [...] to Patient and Callback: ALICIA ([facility]) [phone] Patient of: DR. LINARES Nature of Call: CRITICAL LAB RESULT Coordinator Integrated Marketing Provider Contacted: DR. VINES Time and Method of Contact:PAGED @ 8:54PM Advise Caller: If provider does not call back within 30 minutes, please call us back. ROUTE TELEPHONE NOTE - Follow Qgenda and/or Route Directly to Provider. COPY this note into [facility] chat. documented in this encounter Plan of Treatment Upcoming Encounters Date Type Department Care Team (Late st Contact Info) Description 12/05/2024 8:01 AM EDT Hospital Encounter [facility] ENDOSCOPY [address] [place] [address] Chris Orosco MD [address] [place] [phone] 12/05/2024 8:01 AM EDT - 12/05/2024 8:31 AM EDT Surgery [facility] ENDOSCOPY [address] [place] [address] Chris Orosco MD [address] [place] [address] EGD Scheduled Procedures Name Priority Associated Diagnoses Date/Ti or EGD Cirrhosis of liver with ascites, unspecified hepatic cirrhosis type ([facility]) 12/05/2024 8:01 AM EDT documented as of [...]
--- OUTSIDE RECORDS SUMMARY | 2024-11-18 07:56 | XMS_ITS | Encounter Summary ---
Author Organization [facility] Address [address] [place] [address] Care Team Providers Care Recyclable Materials Distributor Name Role Phone Enedina Mcguire NP Primary Care Provider [phone] Source Comments This information has been disclosed [...] release of HIV test results or diagnoses. [id number] Encounter Details Date Type Department Care Team (Late st Contact Info) Description 10/26/2024 Chart Note [facility] Kidney Transplant at [address] [place] [phone] Geri Vasquez, ЮЛИЯ Social History Tobacco Use [...] Recorded In the past 12 months has [employer], gas, oil, or water [employer] threatened to shut off services in your [...] [place] ENDOSCOPY [address] [place] [address] Chris Orosco MD [address] [place] [phone] 12/05/2024 8:01 AM EDT - 12/05/2024 8:31 AM EDT Surgery [facility] ENDOSCOPY [address] [place] [address] Chris Orosco MD [address] [place] [phone] EGD Scheduled Procedures Name Priority Associated Diagnoses [...] documented as of this encounter Care Teams Recyclable Materials Distributor Relationship Specialty Start Date End Date Enedina Mcguire NP [address] [place] [address] PCP - General Internal Medicine 10/05/24 documented as of this encounter
--- OUTSIDE RECORDS SUMMARY | 2024-11-18 07:57 | XMS_ITS | Referral Summary ---
Author Organization [employer] ([place], [place], [place], [place]) Address [address] [place] [address] Care Team Providers Care Grain Elevator Superintendent Name Role Phone Unavailable Primary Care [...]
--- OUTSIDE RECORDS SUMMARY | 2024-11-18 07:57 | XMS_ITS | Encounter Summary ---
Author Organization [employer] ([place], [place], [place], [place]) Address [address] [place] [address] Care Team Providers Care Traffic Personnel Supervisor Name Role Phone Unavailable Primary Care Provider Unavailabl e Encounter Details Date Type Department Care Team (Late st Contact Info) Description 06/03/2018 Transcribed Document [facility] [place] [address] [place] [address] ProviderEbenezer MD [address] [place], [place] [id number] Social History Tobacco Use Types Packs/Day Years Used Date Smoking Tobacco: Never Assessed Sex and Gender Information Value Date Recorded Sex Assigned at Male 11/08/2021 8:27 PM CDT Legal Sex Male 8:27 PM CDT Gender Identity Male 11/08/2021 8:27 PM CDT Sexual Orientation Not on file documented as of this encounter Miscellaneous Notes * Cerner Conversion Note - Historical ProviderMD - 06/03/2018 3:03 PM CLINICAL PRODUCT MANAGER ED Discharge Entered On: 06/03/2018 15:03 EST Performed On: 06/03/2018 15:03 EST by Lizeth Almeida, belt molder Process Patient Disposition : Discharge Personal Belongings [...] 06/03/2018 15:03 EST Electronically signed by Gabriela [facility] Conversion Printing Roller Handler Celia at 08/29/2022 6:35 PM CDT documented in this encounter Plan of Treatment Not on file documented as of this encounter Visit Diagnoses Not on filedocumented in this encounter
--- OUTSIDE RECORDS SUMMARY | 2024-11-18 07:57 | XMS_ITS ---
Author Organization [facility] Address [address] [place] [address] Care Team Providers Care Distribution Accounting Clerk Name Role Phone Enedina Mcguire NP Primary Care Provider [phone] Maureen Pantoja RN Unavailable Unavail able Transplant Episode Kidney Recipient [facility] ([place], [place]) - [facility] Organ Received: Left Kidney Transplanted on 10/27/2024 Marked as Active Follow-up on 10/27/2024 Kidney CoordinatorJosr Weber RN Phone: N/A Fax: N/A Email: N/A [place] Organ Diagnosis Organ Primary Contributory Kidney Hepatorenal [...] N/A N/A Flaquito Mayen MD Txp Surgeon [phone] N/A Bruno Gonzalez MD Txp Slate Cutter [phone] N/A Yovanny Curran MD Referring Physician [phone] N/A Events Post-Transplant Pre-Transplant Admitted: 10/25/2024 Referred: 10/07/2024 Transplanted: 10/27/2024 Evaluation began: Discharged: 11/02/2024 Committee: 10/20/2024 Center waitlisted: 5
--- OUTSIDE RECORDS SUMMARY | 2024-11-18 07:57 | XMS_ITS | Clinical Summary ---
Author Organization [employer] ([place], [place], [place], [place]) Address [address] [place] [address] Care Team Providers Care Flame Channeler Name Role Phone Unavailable Primary Care Provider [...]
--- OUTSIDE RECORDS SUMMARY | 2024-11-18 07:57 | XMS_ITS | Encounter Summary ---
Author Organization [employer] ([place], [place], [place], [place]) Address [address] [place] [address] Care Team Providers Care Fruit Buying Grader Name Role Phone Unavailable Primary Care Provider Unavaillia e Encounter Details Date Type Department Care Team (Late st Contact Info) Description 06/03/2018 Transcribed Document [facility] Family Medicine [address] [place] [address] ProviderEbenezer MD [address], [place] [id number] Social History Tobacco Use Types Packs/Day Years [...] - Historical ProviderMD - 06/03/2018 1:05 PM POST OFFICE CLERK Patient: JULIEN ZELAYA Age: 33 years Sex: [...] s/p picking up a glass that shattered waitstaff captain. lacerations noted with bleeding controlled . [...] 06/03/2018 Smoking Status 10 or more cigarettes (/ , Reviewed as documented in chart. Problem [...] EST Height Source Stated Height Entry Format [place] Height/Length, ALBANIAN (ft) 6 ft Height/Length ALBANIAN 4 Inch CLINICALHEIGHT 193.04 cm [place] Body Weight 85.74 kg Weight Source, ED Standing scale Weight Entry Format [place] Weight Guatemalan lb 265 lb CLINICALWEIGHT 120.45 kg Body [...] 14:22 EST, Discharge to: Home. Prescriptions: Prescription [facility]: Keflex 500 mg oral capsule (Prescribe): [...]
--- OUTSIDE RECORDS SUMMARY | 2024-11-18 07:57 | XMS_ITS | Encounter Summary ---
Author Organization [employer] ([place], [place], [place], [place]) Address [address] [place] [address] Care Team Providers Care Magazine Supervisor Name Role Phone Unavailable Primary Care Provider Carmen e Encounter Details Date Type Department Care Team (Late st Contact Info) Description 06/03/2018 Transcribed Document [facility] Family Medicine [address] [place] [address] ProviderEbenezer MD [address] [place] [address] Social History Tobacco Use Types [...] - Historical ProviderMD - 06/03/2018 3:04 PM CLINICAL LABORATORY AIDE [address] [place] [address] Patient Information Name: JULIEN ZELAYA Age: 33 Years Date of : 1985 Arrival Time: 06/03/2018 12:08:00 Diagnosis Laceration of finger of left hand; Laceration of finger of right hand Primary Care Physician: SALLY EVEERTT (REF) T Provider Information Primary Provider: DOMINIQUE BREWER PA-C Secondary Provider: JULIEN ZELAYA has been given the following list of patient education materials, prescriptions and follow-up instructions: Follow-up Instructions: With: Address: When: Return to Emergency Department Within 2 weeks Comments: Return for suture/staple removal With: Address: When: SALLY (REF) MARGUERITE PURI # [address] [place] [address] [place] [address] [place] (1) Within 2 to 3 days Patient [...] off of the skin. General Instructions??? Take zodr-gxs-kagaqvt and prescription medicines only as told by [...] 04/30/2006 Document Revised: 09/29/2016 Document Reviewed: 04/26/2015 [employer] Patient Education ? 2017 [employer] Allergies: No Known Medication Allergies Medication [...] verify that JULIEN ZELAYA was seen at [facility] Emergency Department on ,06/03/2018 15:04:17. This [...] Assistance with quitting is available by contacting 3-948-QRNW-NOW. This is a free resource providing counseling, [...] Electronic Communications Privacy Act 18 U.S.C. ???Sections 8062-4521,?? and contain information intended for the specified [...] sure to sign up for the My [facility] patient portal, which gives you 04/12 access to your medical information ??? including these discharge instructions ??? using your computer, smartphone, or tablet. Just go to [employer] to get started. Questions? Call . Acknowledgment [...]
--- OUTSIDE RECORDS SUMMARY | 2024-11-18 07:57 | XMS_ITS | Encounter Summary ---
Author Organization [employer] ([place], [place], [place], [place]) Address [address] [place] [address] Care Team Providers Care Spare Person Name Role Phone Unavailable Primary Care Provider Unavailabl e Encounter Details Date Type Department Care Team (Late st Contact Info) Description 06/03/[address] [facility] [place] [address] [place] [address] ProviderEbenezer MD [address] [place], [place] [id number] Social History Tobacco Use Types Packs/Day Years [...] - Historical ProviderMD - 06/03/2018 2:24 PM HEALTH SERVICES ADMINISTRATOR Electronically signed by Gabriela [facility] Conversion Diplomatic Interpreter Cerner at 08/29/2022 6:41 PM CDT documented in this encounter Plan of Treatment Not on file documented as of this encounter Visit Diagnoses Not on filedocumented in this encounter
--- OUTSIDE RECORDS SUMMARY | 2024-11-18 07:57 | XMS_ITS | Encounter Summary ---
Author Organization [facility] Address [address] [place] [address] Care Team Providers Care Quality Facilitator Name Role Phone Enedina Mcguire NP Primary Care Provider [phone] Source Comments This information has been disclosed [...] release of HIV test results or diagnoses. [id number] Health Encounter Details Date Type Department Care Team (Late st Contact Info) Description 10/22/2024 Telephone [facility] Psych[facility] Transplant at [facility] [address] [facility] [address] [place] [address] Lizeth Warren PsyD [address] [facility] [address] [place] [address] Social History Tobacco Use Types Packs/Day Years Used Date Smoking Tobacco: Former Cigarettes Smokeless Tobacco: Current Alcohol Use Standard Drinks/Week Comments Yes 0 (1 standard drink = 0.6 oz pure alcohol) History of alcohol abuse, reports no use in 3 week- typically endorses use as 4 glasses of wine a days Utilities Answer Date Recorded In the past 12 months has [employer], gas, oil, or water [employer] threatened to shut off services in your [...] appts. Went to voicemail. Left vm referencing [employer] message with availability times listed. Encouraged patient to response with preferred slot. documented in this encounter Plan of Treatment Upcoming Encounters Date Type Department Care Team (Late st Contact Info) Description 12/05/2024 8:01 AM EDT Hospital Encounter [facility] ENDOSCOPY [address] [place] [address] Chris Orosco MD [address] [place] [phone] 12/05/2024 8:01 AM EDT - 12/05/2024 8:31 AM EDT Surgery [facility] ENDOSCOPY [address] [place] [address] Chris Orosco MD [address] [place] [phone] EGD Scheduled Procedures Name Priority Associated Diagnoses Date/Ti me EGD Cirrhosis of liver with ascites, unspecified hepatic cirrhosis type ([facility]) 12/05/2024 8:01 AM EDT documented as of this encounter Visit Diagnoses Not on filedocumented in this encounter Additional Health Concerns Infection Onset Date Last Indicated Resolved Time C. difficile 09/09/2024 09/09/2024 10/27/2024 8:30 AM EDT Assessment Noted Time PHQ-9 Depression Total Score: 17 05//2 025 11:00 AM EDT documented as of this encounter Care Teams Quality Facilitator Relationship Specialty Start Date End Date Enedina Mcguire NP [address] [place] [address] PCP - General Internal Medicine 10/05/24 documented as of this encounter
--- OUTSIDE RECORDS SUMMARY | 2024-11-18 07:57 | XMS_ITS | Encounter Summary ---
Author Organization [facility] Address [address] [place] [address] Care Team Providers Care Lube Attendant Name Role Phone Enedina Mcguire NP Primary Care Provider [phone] Source Comments This information has been disclosed [...] release of HIV test results or diagnoses. [id number] Encounter Details Date Type Department Care Team (Late st Contact Info) Description 10/25/2024 Telephone [facility] Liver Transplant at [address] [address] Krissy Crowell RN Social History Tobacco Use [...] Recorded In the past 12 months has [employer], gas, oil, or water [employer] threatened to shut off services in [...] granted: N/A OPO: CHACHA OPO Contact: Kiet [phone] Recent illnesses (surgeon aware) [x] Yes [] [...] need to bring equipment or solution to [facility]. They will get supplies from dialysis [...] Notifications: Department Phone Comments Time/Name Capacity Management [phone] Notified of patient's pending TXP ORGANS: Liver Kidney Time: Spoke to: OR [phone] OR scheduled for: per Dr. Domínguez Recipient in the OR time 10/25/2024 @ 2200 Acute donor Risk (according to OPTN policy) YES (HCV, HBV, HIV, COVID) Notified Donor is DCD Time: 1145, spoke to Faraz OR trap setter: Gladys RAMIREZ ORGAN Time: yes 1155 BLOOD BANK [phone] For Liver and Heart only Spoke to Pinon 1215 Nursing Director Microbiology [phone] For delayed call in [facility] [place] 1158 PACU or Sameday [phone] Delayed call in: If recipient OR is 2 hrs or less from admission, call PACU/Sameday (basedon where nursing parking lot supervisor assigns patient) Abdominal Transplant 8CCP [phone] Transfer of care reported for abdominal txp Notified of dialysis type and last session if applicable Time: 8CCP trap setter: SICU [phone] Notify about abdominal txp admissions Time: 1215 SICU trap setter: Aleks Transplant Surgery Resident/PA QGenda Time: 1219 Spoke to: Dr. Corbett Transplant Surgery Fellow QGenda Time: 1200 Spoke to: Sveta Mojica MD Transplant Research Team [phone] Time: 1218 Spoke to: Macey If applicable, Dialysis Unit EMR Time: Spoke to: Pharmacy IV Room [phone] Liver Only Contact pharmacy to alert that HBIG will be needed when all the following are present: Donor: *HBsAg negative *HBV DNA/KIANA negative Recipient: *HBsAg positive *HBV DNA is detectable on most recent check Time: Spoke to: Heart Transplant CVICU [phone] Transfer of care reported for heart txp Time: CVICU trap setter: Email notification to Transplant Team(s) and OR trap setter. [Send the following information below to the [...] Venoveno bypass: No Donor info: Donor ID: [id number] Match ID: [id number] Anti-HBc: Negative HBV KIANA: Negative HBsAg: Negative [...] Description 12/05/2024 8:01 AM EDT Hospital Encounter [facility] ENDOSCOPY [address] [place] [address] Chris Orosco MD [address] [place] [phone] 12/05/2024 8:01 AM EDT - 12/05/2024 8:31 AM EDT Surgery [facility] ENDOSCOPY [address] [place] [address] Chris Orosco MD [address] [place] [phone] EGD Scheduled Procedures Name Priority Associated Diagnoses Date/Ti me EGD Cirrhosis of liver with ascites, unspecified hepatic cirrhosis type ([facility]) 12/05/2024 8:01 AM EDT documented as of this encounter Visit Diagnoses Not on filedocumented in this encounter Additional Health Concerns Infection Onset Date Last Indicated Resolved Time C. difficile 09/09/2024 09/09/2024 10/27/2024 8:30 AM EDT Assessment Noted Time PHQ-9 Depression Total Score: 17 025 11:00 AM EDT documented as of this encounter Care Teams Lube Attendant Relationship Specialty Start Date End Date Enedina Mcguire NP [address] [place] [address] PCP - General Internal Medicine 10/05/24 documented as of this encounter
--- OUTSIDE RECORDS SUMMARY | 2024-11-18 07:57 | XMS_ITS | Encounter Summary ---
Author Organization [employer] ([place], [place], [place], [place]) Address [address] [place] [address] Care Team Providers Care Furnace Firer Name Role Phone Unavailable Primary Care Provider Unavailabl e Encounter Details Date Type Department Care Team (Late st Contact Info) Description 06/03/2018 Transcribed Document [facility] Family Medicine [address] [place] [address] ProviderEbenezer MD [address] [place], [place] [phone] Social History Tobacco Use Types Packs/Day Years [...] - Historical ProviderMD - 06/03/2018 12:08 PM SPRING WINDER ED Assessment Entered On: 06/03/2018 14:51 EST Performed On: 06/03/2018 13:50 EST by Lizeth Almeida, DAIRY HUSBANDRY WORKER Quick Look Assessment Level of Consciousness : Alert Affect/Behavior : Calm, Cooperative Orientation : Oriented x 4 Skin Color : Other: [place] Skin Temperature : Warm Skin Description : Dry Lizeth Almeida, RN - 06/03/2018 14:50 EST ED General-Functional Assess Communication Barrier : None Primary Language : [place] Any Spiritual/Cultural Needs or Requests : No [...] Lizeth Almeida, RN - 06/03/2018 14:50 EST documented in this encounter Plan of Treatment Not on file documented as of this encounter Visit Diagnoses Not on filedocumented in this encounter
--- OUTSIDE RECORDS SUMMARY | 2024-11-18 07:57 | XMS_ITS | Encounter Summary ---
Author Organization [facility] Address [address] [place] [address] Care Team Providers Care Account Executive Trainee Name Role Phone Enedina Mcguire NP Primary Care Provider [phone] Source Comments This information has been disclosed [...] release of HIV test results or diagnoses. [id number] Reason for Visit * Reason Comments Appointment Encounter Details Date Type Department Care Team ([facility] st Contact Info) Description 10/24/2024 Telephone [facility] at [address] [place] [phone] Joann Davies MA Appointment Social History Tobacco [...] Recorded In the past 12 months has [employer], [employer], oil, or water [employer] threatened to shut off services in your [...] 12/05/2024 8:01 AM EDT Hospital Encounter [facility] ENDOSCOPY [address] [place] [address] Chris Orosco MD [address] [place] [phone] 12/05/2024 8:01 AM EDT - 12/05/2024 8:31 AM EDT Surgery [facility] ENDOSCOPY [address] [place] [phone] Chris Orosco MD [address] [place] [phone] EGD Scheduled Procedures Name Priority Associated Diagnoses [...] documented as of this encounter Care Teams Account Executive Trainee Relationship Specialty Start Date End Date Enedina Mcguire NP [address] [place] [address] PCP - General Internal Medicine 10/05/24 documented as of this encounter
--- OUTSIDE RECORDS SUMMARY | 2024-11-18 07:57 | XMS_ITS | Encounter Summary ---
Author Organization [facility] Address [address] [place] [address] Care Team Providers Care Front Tender Name Role Phone Enedina Mcguire NP Primary Care Provider [phone] Source Comments This information has been disclosed [...] release of HIV test results or diagnoses. [id number] Encounter Details Date Type Department Care Team (Late st Contact Info) Description 10/22/2024 Chart Note [facility] Liver Transplant at [address] [place] [phone] Mary Butler, RN Social History Tobacco Use [...] Recorded In the past 12 months has [employer], gas, oil, or water [employer] threatened to shut off services in your [...] Hospital Encounter [facility] ENDOSCOPY [address] [place] [phone] Chris Orosco MD [address] [place] [phone] 12/05/2024 8:01 AM EDT - 12/05/2024 8:31 AM EDT Surgery [facility] ENDOSCOPY [address] [place] [phone] Chris Orosco MD [address] [place] [phone] EGD Scheduled Procedures Name Priority Associated Diagnoses [...] 3.2(A) 3.5 - 5.0 g/dL Blood Result [facility] Provider MD LAB BLOOD ORDERABLES Denisse l [...] 3.1(A) 3.5 - 5.0 g/dL Blood Result [facility] LAB BLOOD ORDERABLES Denisse l Result * (ABNORMAL) Protime-INR (10/21/2024) INR 1.52(A) 0.9 - 1.1 Protime 16.4 Plasma Result [facility] LAB BLOOD ORDERABLES Denisse l Result * (ABNORMAL) Hepatic Function Panel (10/21/2024) Bilirubin, Direct 5.4 Alkaline Phosphatase 190 U/L ALT 32 U/L AST 57 U/L Total Bilirubin 7.3(A) 0.1 - 1.4 mg/dL Total Protein 5.4(A) 6.4 - 8.2 g/dL Plasma Result [facility] LAB BLOOD ORDERABLES Denisse l Result documented in this encounter Visit Diagnoses Not on filedocumented in this encounter Additional Health Concerns Infection Onset Date Last Indicated Resolved Time C. difficile 09/09/2024 09/09/2024 10/27/2024 8:30 AM EDT Assessment Noted Time PHQ-9 Depression Total Score: 17 025 11:00 AM EDT documented as of this encounter Care Teams Front Tender Relationship Specialty Start Date End Date Enedina Mcguire NP [address] [place] [address] PCP - General Internal Medicine 10/05/24 documented as of this encounter
--- OUTSIDE RECORDS SUMMARY | 2024-11-18 07:57 | XMS_ITS | Encounter Summary ---
Author Organization [facility] Address [address] [place] [address] Care Team Providers Care Engine Wiper Name Role Phone Enedina Mcguire NP Primary Care Provider [phone] Source Comments This information has been disclosed [...] release of HIV test results or diagnoses. [id number] Encounter Details Date Type Department Care Team (Late st Contact Info) Description 10/22/2024 Chart Note [facility] Liver Transplant at [address] [place] [phone] Faraz Carballo RN 2nd ABO verified for [...] In the past 12 months has [employer], gas, oil, or water [employer] threatened to shut off services in [...] Description 12/05/2024 8:01 AM EDT Hospital Encounter [facility] ENDOSCOPY [address] [place] [address] Chirs Orosco MD [address] [place] [phone] 12/05/2024 8:01 AM EDT - 12/05/2024 8:31 AM EDT Surgery [facility] ENDOSCOPY [address] [place] [address] Chris Orosco MD [address] [place] [phone] EGD Scheduled Procedures Name Priority Associated Diagnoses [...] documented as of this encounter Care Teams Engine Wiper Relationship Specialty Start Date End Date Enedina Mcguire NP [address] [place] [address] PCP - General Internal Medicine 10/05/24 documented as of this encounter
--- OUTSIDE RECORDS SUMMARY | 2024-11-18 07:57 | XMS_ITS | Encounter Summary ---
Author Organization [facility] Address [facility] [place] [address] Care Team Providers Care Movie Editor Name Role Phone Unavailable Primary Care Provider [...] release of HIV test results or diagnoses. [id number] Reason for Visit * Reason Comments Orders Order Clarification Request Encounter Details Date Type Department Care Team (Late st Contact Info) Description 09/23/2024 Telephone [facility] G[facility]ology at [place] [facility] [address] [place] [phone] Gerri Peterson MD [address] [place] [address] Orders (Order Clarification Request/) Social [...] Recorded In the past 12 months has [employer], gas, oil, or water company threatened [...] living in a prison (including now)? No 09/05/2024 Yearly Questionnaire Answer [...] being requested. I was transferred tolab staff dock manager. No answer. Message left to please indicate the lab orders that they are in need of and we will fax the orders. RN provided direct nurse line as well as main number for call back with this information. * Telephone Encounter - Carina Quezada - 09/24/2024 9:48 AM EDT Madina with [facility] called to follow-up on faxed received. Madina needing clarification on fax cover sheet note she received regarding clarifying lab protocol. Madina requesting osiel back to clarify at [phone] (ask for Madina) * Telephone Encounter - Alondra Reese MA - 09/23/2024 1:36 PM EDT Requesting bloodwork orders be placed and done biweekly. documented in this encounter Plan of Treatment Upcoming Encounters Date Type Department Care Team (Late st Contact Info) Description 12/05/2024 8:01 AM EDT Hospital Encounter [facility] ENDOSCOPY [address] [place] [phone] Chris Orosco MD [address] [place] [phone] 12/05/2024 8:01 AM EDT - 12/05/2024 8:31 AM EDT Surgery [facility] ENDOSCOPY [address] [place] [phone] Chris Orosco MD [address] [place] [phone] EGD Scheduled Procedures Name Priority Associated Diagnoses Date/Ti md EGD Cirrhosis of liver with ascites, unspecified hepatic cirrhosis type ([facility]) 12/05/2024 8:01 AM EDT documented as of this encounter Visit Diagnoses Not on filedocumented in this encounter Additional Health Concerns Infection Onset Date Last Indicated Resolved Time C. difficile 09/09/2024 09/09/2024 10/27/2024 8:30 AM EDT documented as of this encounter
--- OUTSIDE RECORDS SUMMARY | 2024-11-18 07:57 | XMS_ITS ---
Author Organization [facility] Address [address] [place] [address] Care Team Providers Care Substance Abuse Prevention Coordinator Name Role Phone Enedina Mcguire NP Primary Care Provider [phone] Maureen Pantoja RN Unavailable Unavail able Transplant Episode Liver Recipient [facility] [place] Organ Received: Liver Transplanted on 10/26/2024 Marked as Active Follow-up on 10/26/2024 Liver CoordinatorMaureen Pantoja RN Phone: N/A Fax: N/A Email: N/A Morongo Organ Diagnosis Organ Primary Contributory Liver Alcohol-Associated [...] N/A N/A Chris Orosco MD Referring Physician [phone] N/A Maureen Pantoja, RN Txp Post Coordinator N/A N/A N/A NUBIA Barrso Txp Rock Climbing Instructor N/A N/A N/A Harvey Domínguez III, MD Txp Surgeon [phone] N/A Mary Butler, ЮЛИЯ Txp Pre Coordinator N/A N/A N/A Events Post-Transplant Pre-Transplant Admitted: 10/25/2024 Referred: 08/13/2024 Transplanted: 10/26/2024 Evaluation began: 5 Discharged: 11/02/2024 Committee: 10/14/2024 Center waitlisted: 5 Appointments (10/19/2024 - 12/19/2024) When With Visit Type Description 11/04/2024 Txp Jose Hanna Established Patient Kidney transplant recipient (Primary Dx); Diarrhea of presumed infectious origin; Hypomagnesemia; Hypervolemia, unspecified hypervolemia type; Liver transplant recipient ([facility]); Other hypervolemia; Hyperparathyroidism ([facility]); Nausea and vomiting, unspecified vomiting type 11/04/2024 Txp Ebony Watkins Established Patient Li jemma transplant recipient ([facility]) (Primary Dx); Alcoholic cirrhosis of liver with ascites ([facility]); Kidney transplant recipient; Acute kidney injury superimposed on CKD ([facility]); CKD (chronic kidney disease) stage 4, GFR 15-29 ml/min ([facility]); Immunosuppressive management encounter following liver transplant ([facility]); Abdominal pain, unspecified abdominal location 11/11/2024 Txp Kady De La Rosa Established Patient Encounter for therapeutic drug monitoring (Primary Dx); Abdominal pain, unspecified abdominal location 11/11/2024 Txp Lorrie Mascorro Established Patient Kid haylee replaced by transplant (Primary Dx); Hypervolemia associated with renal insufficiency
--- OUTSIDE RECORDS SUMMARY | 2024-11-18 07:57 | XMS_ITS | Encounter Summary ---
Author Organization [facility] Address [address] [place] [address] Care Team Providers Care Production Controller Name Role Phone Unavailable Primary Care Provider [...] release of HIV test results or diagnoses. [id number] Health Encounter Details Date Type Department Care Team (Late st Contact Info) Description 09/24/2024 Orders Only [facility] Gastroenterology at [place] [facility] [address] [place] [phone] Gerri Peterson MD [address] [place] [address] Cirrhosis of liver with ascites, [...] Recorded In the past 12 months has [employer], gas, oil, or water company threatened [...] Description 12/05/2024 8:01 AM EDT Hospital Encounter [facility] ENDOSCOPY [address] [place] [address] Chris Orosco MD [address] [place] [phone] 12/05/2024 8:01 AM EDT - 12/05/2024 8:31 AM EDT Surgery [facility] ENDOSCOPY [address] [place] [address] Chris Orosco MD [address] [place] [address] EGD Scheduled Orders Name Type Priority Associated [...] PM EDT) Gram Stain Result Cytospin Results: [facility] Gram Stain Result Polymorphonuclear Leukocytes Seen; [facility] Gram Stain Result No Organisms Seen; [facility] Culture Result No Growth After 5 Days [facility] Fluid ABDOMEN / Unknown 10/10/2024 1:51 PM EDT 10/10/2024 3:56 PM EDT Gerri Peterson MD MICROBIOLOGY - GENERAL ORDERABL ES Final Result Performing Organization Address City/[facility]/ZIP Co de Phone Number [facility] [address] * (ABNORMAL) Body fluid cell count (10/10/2024 1:51 PM EDT) Color, Fluid Yellow(A) Colorless, Pale Yellow 10/10/2024 5:29 PM EDT [facility] Clarity, Fluid Clear 10/10/2024 5:29 PM EDT [facility] Neutrophil %, Fluid 9 % 10/10/2024 5:29 PM EDT [facility] Lymphocytes %, Fluid 13 % 10/10/2024 5:29 PM EDT [facility] Mesothelial %, Fluid 6 % 10/10/2024 5:29 PM EDT [facility] Macrophage %, Fluid 72 % 10/10/2024 5:29 PM EDT [facility] RBC, Fluid 2,662 /uL 10/10/2024 4:41 PM EDT [facility] Total Nucleated Cells, Fluid 89 /uL 10/10/2024 4:41 PM EDT [facility] Comment:Total Nucleated Cell s represent WBCs and other nucleated cells in the fluid such as lining cells. Ascitic Fluid ABDOMEN / Unknown 1:51 PM EDT 10/10/2024 3:56 PM EDT Gerri Peterson MD BODY FLUIDS AND STOOLS ORDERABL ES Final Result Performing Organization Address City/[facility]/ZIP Co de Phone Number [facility] [address] [facility]. [address] documented in this encounter Visit Diagnoses Diagnosis Cirrhosis of liver with ascites, unspecified hepatic cirrhosis type (CMS-HCC)- Primary Cirrhosis of liver with ascites, unspecified hepatic cirrhosis type (CMS-HCC) documented in this encounter Additional Health Concerns Infection Onset Date Last Indicated Resolved Time C. difficile 09/09/2024 09/09/2024 10/27/2024 8:30 AM EDT documented as of this encounter
--- OUTSIDE RECORDS SUMMARY | 2024-11-18 07:57 | XMS_ITS | Encounter Summary ---
Author Organization [facility] Address [address] [place] [address] Care Team Providers Care Collection Advisor Name Role Phone Unavailable Primary Care [...] release of HIV test results or diagnoses. [id number] Reason for Referral * (Routine) - Pending Review Specialty Diagnoses / Procedures Referred By Contac t Referred To Contact Radiology Diagnoses Cirrhosis of liver with ascites, unspecified hepatic cirrhosis type (CMS-HCC) Procedures AMB Referral to Interventional Radiology (BODY IR) Gerri Peterson MD [address] [place] [address] Phone: tel: fax: Referral ID Status Reason Start Date Expiration Date V isits Requested Visits Authorized [id number] Pending Review 09/23/2024 03/22/2025 10 10 Reason for Visit * Reason Comments Orders Order Clarification Request Encounter Details Date Type Department Care Team (Late st Contact Info) Description 09/22/2024 Telephone [facility] Gastroenterology at [address] [address] Gerri Peterson MD [address] [place] [address] Orders (Order Clarification Request ) Social History [...] the past 12 months has th e [employer], [employer], oil, or water [employer] threatened to shut off services in your [...] 5:26 PM EDT RN faxed order to [phone] * Telephone Encounter - Alondra Reese MA - 09/23/2024 1:35 PM EDT Pt requesting a Standing order for parenthesis to have done 2x a week. * Telephone Encounter - Tamar Blackwood - 09/22/2024 11:22 AM EDT Madina from [facility] asked to clarify paracentesis frequency. Julien had 9 liters removed last week, 7.5 today and asked to get scheduled this Sunday. Madina can be reached at [phone] documented in this encounter Plan of Treatment Upcoming Encounters Date Type Department Care Team (Late st Contact Info) Description 12/05/2024 8:01 AM EDT Hospital Encounter [facility] ENDOSCOPY [address] [place] [address] Chris Orosco MD [address] [place] [address] 12/05/2024 8:01 AM EDT - 12/05/2024 8:31 AM EDT Surgery [facility] ENDOSCOPY [address] [place] [address] Chris Orosco MD [address] [place] [phone] EGD Scheduled Orders Name Type Priority Associated [...]
--- OUTSIDE RECORDS SUMMARY | 2024-11-18 07:57 | XMS_ITS | Encounter Summary ---
Author Organization [facility] Address [facility] [place] [address] Care Team Providers Care Director Decision Support Name Role Phone Enedina Mcguire NP Primary Care Provider [phone] Source Comments This information has been disclosed [...] release of HIV test results or diagnoses. [id number] Health Encounter Details Date Type Department Care Team (Late st Contact Info) Description 10/22/2024 Orders Only [facility] [address] [place] [address] Abdulkadir Gaspar MD [address] [facility] [address] [facility] [place] [address] Social History Tobacco Use Types Packs/Day Years Used Date Smoking Tobacco: Former Cigarettes Smokeless Tobacco: Current Alcohol Use Standard Drinks/Week Comments Yes 0 (1 standard drink = 0.6 oz pure alcohol) History of alcohol abuse, reports no use in 3 week- typically endorses use as 4 glasses of wine a days Utilities Answer Date Recorded In the past 12 months has [employer], gas, oil, or water company threatened to [...] Encounter [facility] ENDOSCOPY [address] [place] [address] Chris Orosco MD [address] [place] [phone] 12/05/2024 8:01 AM EDT - 12/05/2024 8:31 AM EDT Surgery [facility] ENDOSCOPY [address] [place] [address] Chris Orosco MD [address] [place] [address] EGD Scheduled Procedures Name Priority Associated Diagnoses [...] MD LAB BLOOD ORDERABLES Final Resul t [facility] [address] [facility] [place] [address] documented in this encounter Visit Diagnoses Not on filedocumented in this encounter Additional Health Concerns Infection Onset Date Last Indicated Resolved Time C. difficile 09/09/2024 09/09/2024 10/27/2024 8:30 AM EDT Assessment Noted Time PHQ-9 Depression Total Score: 17 025 11:00 AM EDT documented as of this encounter Care Teams Director Decision Support Relationship Specialty Start Date End Date Enedina Mcugire NP [address] [place], [place] [phone] PCP - General Internal Medicine 10/05/24 documented as of this encounter
--- OUTSIDE RECORDS SUMMARY | 2024-11-18 07:57 | XMS_ITS | Encounter Summary ---
Author Organization [facility] Address [facility] [place] [address] Care Team Providers Care Wage Analyst Name Role Phone Enedina Mcguire NP Primary Care Provider [phone] Source Comments This information has been disclosed [...] release of HIV test results or diagnoses. [id number] Health Encounter Details Date Type Department Care Team (Late st Contact Info) Description 10/27/2024 Orders Only [facility] [address] [place] [address] Abdulkadir Gaspar MD [address] [facility] [address] [facility] [place] [address] Social History Tobacco Use Types Packs/Day Years Used Date Smoking Tobacco: Former Cigarettes Smokeless Tobacco: Current Alcohol Use Standard Drinks/Week Comments Yes 0 (1 standard drink = 0.6 oz pure alcohol) History of alcohol abuse, reports no use in 3 week- typically endorses use as 4 glasses of wine a days Utilities Answer Date Recorded In the past 12 months has [employer], gas, oil, or water company threatened [...] Hospital Encounter [facility] ENDOSCOPY [address] [place] [address] Chris Orosco MD [address] [place] [phone] 12/05/2024 8:01 AM EDT - 12/05/2024 8:31 AM EDT Surgery [facility] ENDOSCOPY [address] [place] [address] Chris Orosco MD [address] [place] [address] EGD Scheduled Procedures Name Priority Associated Diagnoses [...] MD LAB BLOOD ORDERABLES Final Resul t [facility] [address] [place] [address] documented in this encounter Visit Diagnoses Not on filedocumented in this encounter Additional Health Concerns Infection Onset Date Last Indicated Resolved Time C. difficile 09/09/2024 09/09/2024 10/27/2024 8:30 AM EDT Assessment Noted Time PHQ-9 Depression Total Score: 17 025 11:00 AM EDT documented as of this encounter Care Teams Wage Analyst Relationship Specialty Start Date End Date Enedina Mcguire NP [address] [place], [place] [phone] PCP - General Internal Medicine 10/05/24 documented as of this encounter
--- OUTSIDE RECORDS SUMMARY | 2024-11-18 07:57 | XMS_ITS | Encounter Summary ---
Author Organization [facility] Address [address] [place] [address] Care Team Providers Care Rcp Name Role Phone Enedina Mcguire NP Primary Care Provider [phone] Source Comments This information has been disclosed [...] release of HIV test results or diagnoses. [id number] Encounter Details Date Type Department Care Team (Late st Contact Info) Description 10/22/2024 Telephone [facility] Liver Transplant at [address] [address] Mary Bulter, RN Social History Tobacco Use Types Packs/Day Years Used Date Smoking Tobacco: Former Cigarettes Smokeless Tobacco: Current Alcohol Use Standard Drinks/Week Comments Yes 0 (1 standard drink = 0.6 oz pure alcohol) History of alcohol abuse, reports no use in 3 week- typically endorses use as 4 glasses of wine a days Utilities Answer Date Recorded In the past 12 months has [employer], gas, oil, or water [employer] threatened to shut off services in your [...] will need ~[address] [facility]. documented in this encounter Plan of Treatment Upcoming Encounters Date Type Department Care Team (Late st Contact Info) Description 12/05/2024 8:01 AM EDT Hospital Encounter [facility] ENDOSCOPY [address] [place] [phone] Chris Orosco MD [address] [place] [phone] 12/05/2024 8:01 AM EDT - 12/05/2024 8:31 AM EDT Surgery [facility] ENDOSCOPY [address] [place] [phone] Chris Orosco MD [address] [place] [phone] EGD Scheduled Procedures Name Priority Associated Diagnoses Date/Ti me EGD Cirrhosis of liver with ascites, unspecified hepatic cirrhosis type ([facility]) 12/05/2024 8:01 AM EDT documented as of this encounter Visit Diagnoses Not on filedocumented in this encounter Additional Health Concerns Infection Onset Date Last Indicated Resolved Time C. difficile 09/09/2024 09/09/2024 10/27/2024 8:30 AM EDT Assessment Noted Time PHQ-9 Depression Total Score: 17 05/19/2 025 11:00 AM EDT documented as of this encounter Care Teams Rcp Relationship Specialty Start Date End Date Enedina Mcguire NP [address] [place] [address] PCP - General Internal Medicine 10/05/24 documented as of this encounter
--- OUTSIDE RECORDS SUMMARY | 2024-11-18 07:57 | XMS_ITS | Encounter Summary ---
Author Organization [facility] Address [address] [place] [address] Care Team Providers Care Feed Manager Name Role Phone Enedina Mcguire NP Primary Care Provider [phone] Source Comments This information has been disclosed [...] release of HIV test results or diagnoses. [id number] Encounter Details Date Type Department Care Team (Late st Contact Info) Description 10/22/2024 Status Update [facility] Kidney Transplant at [facility] [address] [facility] [address] [place] [address] Aaron Gonzalez MD [address] [facility] [place] [address] Social History Tobacco Use Types Packs/Day Years Used Date Smoking Tobacco: Former Cigarettes Smokeless Tobacco: Current Alcohol Use Standard Drinks/Week Comments Yes 0 (1 standard drink = 0.6 oz pure alcohol) History of alcohol abuse, reports no use in 3 week- typically endorses use as 4 glasses of wine a days Utilities Answer Date Recorded In the past 12 months has [employer], gas, oil, or water [employer] threatened to shut off services in your [...] Encounter [facility] ENDOSCOPY [address] [place] [address] Chris Orosco MD [address] [place] [phone] 12/05/2024 8:01 AM EDT - 12/05/2024 8:31 AM EDT Surgery [facility] ENDOSCOPY [address] [facility] [place] [address] Chris Orosco MD [address] [place] [phone] EGD Scheduled Procedures Name Priority Associated Diagnoses Date/Ti me EGD Cirrhosis of liver with ascites, unspecified hepatic cirrhosis type ([facility]) 12/05/2024 8:01 AM EDT documented as of this encounter Visit Diagnoses Not on filedocumented in this encounter Additional Health Concerns Infection Onset Date Last Indicated Resolved Time C. difficile 09/09/2024 09/09/2024 10/27/2024 8:30 AM EDT Assessment Noted Time PHQ-9 Depression Total Score: 17 025 11:00 AM EDT documented as of this encounter Care Teams Feed Manager Relationship Specialty Start Date End Date Enedina Mcguire NP [address] [place] [address] PCP - General Internal Medicine 10/05/24 documented as of this encounter
--- OUTSIDE RECORDS SUMMARY | 2024-11-18 07:57 | XMS_ITS | Encounter Summary ---
Author Organization [facility] Address [address] [place] [address] Care Team Providers Care Millwright Name Role Phone Enedina Mcguire NP Primary Care Provider [phone] Source Comments This information has been disclosed [...] release of HIV test results or diagnoses. [id number] Health Encounter Details Date Type Department Care Team (Late st Contact Info) Description 10/22/2024 Chart Note [facility] Kidney Transplant at [address] [place] [phone] Gladis Rainey RN Received most recent [...] Recorded In the past 12 months has [employer], gas, oil, or water [employer] threatened to shut off services in [...] Rainey RN - 10/22/2024 1:51 PM EDT [facility] VERIFICATION CHECK FORM Julien Anderson [id number] [address]s or answer yes or no next to each item to note you have verified the information for listing on this patient in [facility]. First Name nh Last Name vt Middle Initial N/a Date of vt SS# vt Center ID# (MRN) vt ABO x 2 vt / vt I have verified the two (2) blood type results for this candidate are the same blood type and matchthe results reported in UNet. 2728 date UNOS N/a 2728 date [facility] N/a If patient is not on Dialysis Verify date of GFR and GFR 19 on 08/13/24 *Meets CKD Criteria for [facility] listing today with today eGFR 21 on 10/22/24 *Kidney checked in Liver registration as additional organ Listing date in [facility] And OS match nh Listing date notification letter match [facility] Updated consent on file [x] Yes [...] Team documentation Nephrology within the last year vt structural steel worker helper within the last year vt Dietitian within the last year vt Finance within the last year vt Pharmacy within the last year vt Initial surgery assessment vt RN coordinator documentation nh * Terra Pyle RN - 10/22/2024 1:51 PM EDT OS VERIFICATION CHECK FORM Julien Anderson [phone] [address]s or answer yes or [...] UNet. 2727 date UNOS N/A 2727 date [facility] N/A If patient is not on Dialysis Verify date of GFR and GFR 19 on 08/13/24 Verified that liver was checked on kidney registration Verified that kidney was checked on liver registration Listing date in [facility] UNOS match MW Listing date notification letter match [facility] and OS Updated consent on file [x] [...] documentation Nephrology within the last year MW structural steel worker helper within the last year MW Dietitian within the last year MW Finance within the last year MW Pharmacy within the last year MW Initial surgery assessment RN coordinator documentation MW documented in this encounter Plan of Treatment Upcoming Encounters Date Type Department Care Team (Late st Contact Info) Description 12/05/2024 8:01 AM EDT Hospital Encounter [facility] ENDOSCOPY [address] [place] [address] Chris Orosco MD [address] [place] [phone] 12/05/2024 8:01 AM EDT - 12/05/2024 8:31 AM EDT Surgery [facility] ENDOSCOPY [address] [place] [address] Chris Orosco MD [address] [place] [phone] EGD Scheduled Procedures Name Priority Associated Diagnoses Date/Ti me EGD Cirrhosis of liver with ascites, unspecified hepatic cirrhosis type ([facility]) 12/05/2024 8:01 AM EDT documented as of this encounter Visit Diagnoses Not on filedocumented in this encounter Additional Health Concerns Infection Onset Date Last Indicated Resolved Time C. difficile 09/09/2024 09/09/2024 10/27/2024 8:30 AM EDT Assessment Noted Time PHQ-9 Depression Total Score: 17 025 11:00 AM EDT documented as of this encounter Care Teams Millwright Relationship Specialty Start Date End Date Enedina Mcguire NP [address] [place] [address] PCP - General Internal Medicine 10/05/24 documented as of this encounter
--- OUTSIDE RECORDS SUMMARY | 2024-11-18 07:57 | XMS_ITS | Encounter Summary ---
Author Organization [employer] ([place], [place], [place], [place]) Address [address] [place] [address] Care Team Providers Care Nurses' Aide Name Role Phone Unavailable Primary Care Provider Unavailabl e Encounter Details Date Type Department Care Team (Late st Contact Info) Description 06/03/2018 Transcribed Document [facility] Medicine [address] [place] [address] ProviderEbenezer MD [address] [place] [address] Social History Tobacco Use Types [...] - Historical ProviderMD - 06/03/2018 3:04 PM TIRE RECAPPER [place] [address] [facility] [place] [address] PERSON INFORMATION Name JULIEN ZELAYA Age 33 Years 1985 Sex Male Language Tanzanian PCP SALLY EVERETT (REF) T Marital Status Single Med Service Emergency Medicine Acct# Arrival 06/03/2018 12:08:00 Visit Reason Finger laceration; CUT FINGERS Acuity 3 - Urgent LOS 000 02:56 Depart Date: 06/03/18 03:04 PM Address: [address] [facility] [address] Comment: PROVIDER INFORMATION Provider Role Assigned Unassigned Lizeth Almeida, AREA SALES MANAGER Nurse 06/03/2018 12:39:09 DOMINIQUE BREWER PA-C ED [...] PURI # 2C [address] [place], [place] [id number] Portr (1[employer]Place Within 2 to 3 days Comment: documented in this encounter Plan of Treatment Not on file documented as of this encounter Visit Diagnoses Not on filedocumented in this encounter
--- OUTSIDE RECORDS SUMMARY | 2024-11-18 07:57 | XMS_ITS | Encounter Summary ---
Author Organization [facility] Address [address] [place] [address] Care Team Providers Care Press Tender Short Goods Name Role Phone Enedina Mcguire NP Primary Care Provider [phone] Source Comments This information has been disclosed [...] release of HIV test results or diagnoses. [id number] Health Encounter Details Date Type Department Care Team (Late st Contact Info) Description 10/22/2024 Chart Note [facility] Liver Transplant at [address] [place] [address] Mary Butler, RN [facility] VERIFICATION CHECK FORM [...] Recorded In the past 12 months has [employer], oil, or water [employer] threatened to shut off services in your [...] Multidisciplinary Team documentation Initial Hepatology assessment sb workers compensation claims analyst within the last year sb Dietitian within [...] Multidisciplinary Team documentation Initial Hepatology assessment nlc workers compensation claims analyst within the last year nlc Dietitian within [...] Encounter [facility] ENDOSCOPY [address] [place] [address] Chris Orosco MD [address] [place] [address] 12/05/2024 8:01 AM EDT - 12/05/2024 8:31 AM EDT Surgery [facility] ENDOSCOPY [address] [place] [address] Chris Orosco MD [address] [place] [phone] EGD Scheduled Procedures Name Priority Associated Diagnoses [...] documented as of this encounter Care Teams Press Tender Short Goods Relationship Specialty Start Date End Date Enedina Mcguire NP [address] [place] [address] PCP - General Internal Medicine 10/05/24 documented as of this encounter
--- OUTSIDE RECORDS SUMMARY | 2024-11-18 07:57 | XMS_ITS | Encounter Summary ---
Author Organization [employer] ([place], [place], [place], [place]) Address [address] [place] [address] Care Team Providers Care Medical Field Representative Name Role Phone Unavailable Primary Care Provider Unavailabl e Encounter Details Date Type Department Care Team (Late st Contact Info) Description 06/03/2018 Transcribed Document [facility] Family Medicine [address] [place] [address] ProviderEbenezer MD [address] [place] [address] Social History Tobacco Use Types [...] - Historical ProviderMD - 06/03/2018 12:08 PM RETICLE PRINTER ED Triage Entered On: 06/03/2018 12:17 EST Performed On: 06/03/2018 12:12 EST by KANU VELEZ RN ED Triage Across the Room Triage Date/Time : 06/03/2018 12:12 EST Chief Complaint : lacerations to rt index and left middle finger s/p picking up a glass that shattered lighter captain. lacerations noted with bleeding controlled KANU VELEZ RN - 06/03/2018 12:12 EST DCP GENERIC CODE Tracking Acuity : 3 - Urgent Tracking Group : [facility] ED [place] KANU VELEZ RN [...] 12:17:41 EST) Problems(Active) HTN (hypertension) (SNOMED CT :7858135110 ) Name of Problem: HTN (hypertension) ; Recorder: KANU VLEEZ RN; Confirmation: Confirmed ; Classification: Medical ; Code: [id number] ; Contributor System: [employer] ; Last Updated: 06/03/2018 12:14 EST ; Life Cycle Date: 06/03/2018 ; Life Cycle Status: Active ; Vocabulary: SNOMED CT Diagnoses(Active) Finger laceration Date: 06/03/2018 ; Diagnosis Type: Reason For Visit ; Confirmation: Complaint of ; Clinical Dx: Finger laceration ; Classification: Medical ; Clinical Service: Emergency medicine ; Code: PNED ; Probability: 0 ; Diagnosis Code: [id number] ED Height and Weight Height Source : Stated Height Entry Format : Banks Height, Feet : 6 ft(Converted to: 183 cm, 72 Inch) Height, Inches : 4 Inch(Converted to: 0 ft 4 Inch, 10.16 cm) Clinical Height : 193.04 cm Weight Source, ED : Standing scale Weight Entry Format : Banks Weight, Pounds : 265 lb Clinical Dosing Weight : 120.45 kg Body Surface Area (BSA) : 2.5 m2 Body Mass Index : 32.3 kg/m2 (HI) Moro Body Weight (IBW) : 85.74 kg KANU [...]
[2024-11-18 10:11] LABS: Alanine Aminotransferase 41 U/L (12-78); Albumin Level 4.1 g/dl (3.5-5.0); Alkaline Phosphatase 189 U/L (38-126); Anion Gap 15.5 mEq/L (5-15); Aspartate Amino Transferase 23 U/L (17-59); Bilirubin,Direct 0.5 mg/dl (0.0-0.4); Bilirubin,Indirect 0.1 mg/dL (0.0-0.9); Bilirubin,Total 0.6 mg/dl (0.2-1.3); Bilirubin,Unconjugated 0.2 mg/dL (0.0-1.1); Blood Urea Nitrogen 43 mg/dl (9-20); Calcium 9.8 mg/dl (8.4-10.2); Carbon Dioxide 29 mmol/L (22.0-30.0); Chloride 99 mmol/L (98-107); Creatinine,Serum 1.00 mg/dl (0.66-1.25); Estimated Glomerular Filt Rate 82 ml/min (>60); GFR (African American) 100 ML/MIN (>60); Glucose 100 mg/dl (74-100); Phosphorous 5.3 mg/dl (2.5-4.5); Potassium 4.5 mmoL/L (3.5-5.1); Sodium 139 mmol/L (136-145); Total Protein,Serum 6.1 g/dl (6.3-8.2)
[2024-11-22 01:08] LABS: Tacrolimus (FK506), Blood 12.5 ng/mL (5.0-20.0)
== END 2024-11-18 23:59 | disposition home or self-care (01) ==
LOC: LAB 07:40
PROVIDERS: PCP Nurse Practitioner Family; Visit Provider Nurse Practitioner Family
DX: K74.60 Unspecified cirrhosis of liver (principal); R18.8 Other ascites
CPT/HCPCS: 36415; 80069; 80076; 80197; 85025

== ENCOUNTER 2024-11-20 07:51 | Outpatient (CLI) | payer OTHER, SELFPAY ==
--- OUTSIDE RECORDS SUMMARY | 2024-09-29 11:00 | XMS_ITS | Encounter Summary ---
Author Organization [facility] Address [address] [place] [address] Care Team Providers Care Legal Aid Name Role Phone Unavailable Primary Care Provider [...] release of HIV test results or diagnoses. [id number] Health Encounter Details Date Type Department Care Team (Late st Contact Info) Description 09/29/2024 11:00 AM EDT Office Visit [facility] Psychiatry Transplant at [facility] [address] [facility] [address] [place] [phone] Craig Warren PsyD [address] [facility] [address] [place] [address] PTSD (post-traumatic stress disorder) (Primary [...] Recorded In the past 12 months has [employer], gas, oil, or water company threatened to [...] in the past 12 m [facility], were you homeless or living in a [...] The following assessment was informed by the [place] Integrated Psychosocial Assessment for Transplant (SIP AT) and the SIPAT-General TXP Long Form ?? Tyler et al, 2008; Tyler et al, Psychosomatics 2012. Assessment Measures: Clinical Interview Patient Health Questionnaire -9 (PHQ-9) Generalized Anxiety Disorder-7 (MAGALYS-7) Timmy Cognitive Assessment (MoCA) Donny Integrated Psychosocial Assessment for Transplant (SIPAT) Patient [...] and his father resides in [facility]. Patient earned a graduate degree and never served in the . 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 He was raised Hoahaoism and denied current engagement in any community [...] elected kentrelle VIKAS and went directly to [facility] for care. Patient trusts his caregivers to [...] most recent in 2023. Given distance to [facility] (~ 1.25 - 1.5 hr) and [...] well as with an individual counselor, at [facility]. Alcohol use triggers identified as [...] PCP). Was established with Pain Management at [facility] under VALENTINE Rodriguez May 2024. Note from [...] 12/05/2024 8:01 AM EDT Hospital Encounter [facility] ENDOSCOPY [address] [place] [address] Chris Orosco MD [address] [place] [phone] 12/05/2024 8:01 AM EDT - 12/05/2024 8:31 AM EDT Surgery [facility] ENDOSCOPY [address] [place] [address] Chris Orosco MD [address] [place] [phone] EGD Scheduled Procedures Name Priority Associated Diagnoses [...] Resolved Time C. difficile 09/09/2024 09/09/2024 10/27/2024 8:3 0 AM EDT Assessment Noted Time PHQ-9 Depression Total Score: 17 025 11:00 AM EDT documented as of this encounter
--- OUTSIDE RECORDS SUMMARY | 2024-09-29 14:20 | XMS_ITS | Encounter Summary ---
Author Organization Healthcare Address [address] [place] [address] Care Team Providers Care Flask Carrier Name Role Phone Regina, Lj Nova APRN Unavailable [phone] Enedina Mcguire APRN Primary Care Provider + Reason for Referral * Consultation (Routine) - Authorized Specialty Diagnoses / Procedures Referred By Shane t Referred To Contact Diagnoses NADIYA (acute kidney injury) (CMS/HCC) Portal hypertension (CMS/HCC) Secondary esophageal varices with bleeding (CMS/HCC) Yovanny Curran MD [address] [address] Phone: tel: fax: Referral ID Status Reason Start Date Expiration Date V isits Requested Visits Authorized [id number] Authorized 09/29/2024 03/31/2026 1 1 Reason for Visit * Reason Comments Follow-up Pt did not taken vit al sign Encounter Details Date Type Department Care Team ([facility] Contact Info) Description 09/29/2024 2:20 PM EDT Office Visit Professional [employer] [place] Nephrology, Bone & Mineral Metabolism [address] , [address] [place] [address] Yovanny Bob MD [address] [place] [address] NADIYA (acute kidney injury) (CMS/HCC) [...] answer 07/14/2024 How often do you attend [facility] or spiritism services? Patient unable to answer 07/14/2024 Do [...] Recorded Patient Health Questionnaire-2 Score 2 09/29/2024 [facility] of Occupat ional [facility] - Occupational Stress Questionnaire Answer Date Recorded [...] place to sleep or slept in a mcc (including now)? No 11/19/2023 PHQ-9 Answer Date [...] any time in the past 12 m [facility], were you homeless or living in a mcc (including now)? 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-CLAIMS SUPPORT SPECIALIST) to steady your nerves or to get rid of a hangover? 0 07/19/2024 CAGE Questionnaire Score 2 025 Utilities Answer Date Recorded In the past 12 months has th [employer], gas, oil, or water [employer] threatened to shut off services in your [...] of Assessment Author Trouble falling or staying a sleep, or sleeping too much Not at all [...] all 09/29/2024 1:47 PM EDT Janice Bryant Trouble concentrating on thi ngs, such as [...] Patient confirms they are physically located in [place]? Yes If the patient is not physically located in [place], the provider has confirmed with [facility] thatthe provider is authorized to provide services in patient's stated location? N/A Provider Location: [facility] facility Audio and video or audio only? Audio and video Total visit time: 20 minutes HISTORY OF PRESENT ILLNESS Julien Anderson was seen in our clinic previously with/for Follow-up. As you know, patient is a 39 y.o. male who presents to the clinic today as follow up of his NADIYA. Most recently discharged on 09/09 from [facility]. Cr at time of discharge was 2.4. Cr most recently at [facility] was 3.0. On bicarb repletion. C/O [...] impressions, importance of compliance with treatment, and tank terminal gauger nature of condition. Education provided was verbal [...] Description 12/01/2024 2:20 PM EDT Office Visit [facility] Nephrology, Bone & Mineral Metabolism [address], [address] [place] [address] Yovanny Curran MD [address] [place] [address] 01/08/2025 3:20 PM EDT Office Visit [facility] [place] [facility] [address], [address] [place] [address] Vincent Braga MD [address] [place] [address] Scheduled Referrals Name Type Priority [...] documented as of this encounter Care Teams Flask Carrier Relationship Specialty Start Date End Date Enedina Mcguire APRN [address] [place] [id number] PCP - General 12/04/22 Lj Tapia APRN [facility] [place], [place] [id number] Referring Physician Gastroenterology 07/18/22 documented as of this encounter
--- OUTSIDE RECORDS SUMMARY | 2024-10-05 23:12 | XMS_ITS | Encounter Summary ---
Author Organization [facility] Address [facility] [place] [address] Care Team Providers Care Loan Documentation Specialist Name Role Phone Enedina Mcguire NP Primary Care Provider [phone] Source Comments This information has been disclosed [...] release of HIV test results or diagnoses. [id number] Reason for Referral * Surgical (Routine) - Pending Review Specialty Diagnoses / Procedures Referred By Shane hernadez Referred To Contact Gastroenterology Diagnoses Alcoholic cirrhosis of liver with ascites (CMS-HCC) Procedures Case request GI: EGGerri Min MD [address] [place] [address] Phone: tel: fax: Referral ID Status Reason Start Date Expiration Date V isits Requested Visits Authorized [id number] Pending Review 10/08/2024 04/06/2025 1 1 Reason for Visit * Auth/Cert (Routine) Specialty Diagnoses / Procedures Referred By Shane hernadez Referred To Contact General Internal Medicine Diagnoses [facility] [address] [place] [address] Phone: tel: Referral ID Status Reason Start Date Expiration Date Visits Re quested Visits Authorized [id number] 1 1 Encounter Details Date Type Department Care Team (Latest Contact Info) Description 10/05/2024 11:12 PM EDT - 10/17/2024 10:29 AM EDT Hospital Encounter [facility] [address] [place] [id number] Angie Blanchard MD [address] [place] [address] Fouzia Rene MD [address] [place] [address] Med/[place] [address] Chelsy Lerner MD [address] [place] [address] [place] [address] Alcoholic cirrhosis of liver with ascites (CMS-HCC) (Primary Dx); NADIYA (acute kidney injury) (CMS-HCC); Metabolic encephalopathy; SBP (spontaneous bacterial peritonitis) (CMS-HCC); Neck pain with history of cervical spinal surgery; Metabolic acidosis with normal anion gap and bicarbonate losses; Encounter for pre-transplant evaluation for chronic liver disease; Thrombocytopenia (CMS-HCC); Coagulopathy (CMS-HCC); Anemia, unspecified type; Decompensated cirrhosis (CMS-HCC); Cirrhosis of liver with ascites, unspecified hepatic cirrhosis type (CMS-HCC); Nonspecific abnormal finding on cardiac evaluation; Pain Discharge Disposition: Home or Self Care WITHOUT [...] Recorded In the past 12 months has Resource Data, gas, oil, or water [employer] threatened to shut off services in your home? No 10/06/2024 AUDIT-C Answer Date Recorded Q1: How often do you have a drink containing alcohol? Never 10/09/2024 Q2: How many drinks containi ng alcohol do you have on a typical day when you are drinking? Patient does not drink Q3: How often do you have si x or more drinks on one occasion? Never 10/09/2024 PHQ-2 Answer Date Recorded PHQ-2 Total Score 3 09/29/2024 Hunger Vital Sign Answer Date Recorded Within the past 12 months, y ou worried that your food would run out before you got the money to buy more. Never true 10/07/19 25 Within the past 12 months, t he food you bought just didn't last and you didn't have money to get more. Never true 10/06/2024 PRAPARE - Transportation Answer Date Re corded In the past 12 months, has l ack of transportation kept you from medical appointments or from getting medications? No 09/12 In the past 12 months, has l ack of transportation kept you from meetings, work, or from getting things needed for daily living? No 10/06/2024 Housing Stability Vital Sign Answer Bob e Recorded In the last 12 months, was t here a time when you were not able to pay the mortgage or rent on time? No 10/06/2024 In the past 12 months, how m any times have you moved where you were living? 0 10/06/2024 At any time in the past 12 m [facility], were you homeless or living in a fpc (including now)? No 10/06/2024 Yearly Questionnaire Answer Date Record ed Do [...] Sign Reading Time Taken Comments Blood Pressure 104/54 10/17/2024 8:15 AM EDT Pulse 96 10/17/2024 8:15 AM EDT Temperature 36.7 C (98 F) 10/17/2024 8:15 AM EDT Respiratory Rate 18 10/17/2024 8:15 AM EDT Oxygen Saturation 98% 10/17/2024 8:15 AM EDT Inhaled Oxygen Concentration 98% 10/17/2024 8 :15 AM EDT Weight 119.5 kg (263 lb 8 oz) 10/10/2024 6:54 AM EDT Height 193 cm (6' 4 ) 10/16/2024 7:32 PM EDT Body Mass Index 32.07 10/10/2024 6:54 AM EDT documented in this encounter Functional Status * Audit-C Score Answer Date of Assessment Author 0 10/09/2024 12:13 PM EDT Willa Paz RN * Question Answer Date of Assessment Author Q1: How often do you have a drink containing alcohol? Never 10/09/2024 12:13 PM EDT Willa Paz RN Q2: How many drinks containing alcohol do you have on a typical day when you are drinking? Patient does not drink 10/09/2024 12:13 PM EDT Willa Paz RN Q3: How often do you have six or more drinks on one occasion? Never 10/09/2024 12:13 PM EDT Willa Paz RN documented as of this encounter Discharge Summaries * Kandy Fuentes - 10/17/2024 10:29 AM EDT Health Care Management Discharge Summary Patient name: Julien Gilbert Patient : 1985 Age: 39 y.o. Gender: male Patient emergency contact: Extended Emergency Contact Information Primary Emergency Contact: Abdiaziz Gilbert (next of kin) Mobile Relation: Spouse Secondary Emergency Contact: brown gilbert Mobile Relation: Brother Attending provider: No att. providers found Primary care physician: Enedina Mcguire NP The MD has indicated that the patient is ready for discharge. Julien Gilbert was referred and accepted at at . The patient will be transported by at Transfer Mode/Level of Care: Family The plan has been reviewed: Patient/Family Informed of Discharge Plan: Yes Plan Reviewed With Patient, Family, or Significant Other: Yes Patient and or family are aware and in agreement with the discharge plan: Yes Plan reviewed with MD and other members of the health care team: Yes Care Plan Completed: Yes No further CM/SW needs. This plan has been reviewed with the multi-disciplinary team. Treatment Preferences Post-Discharge Goals To arrive home safely. Post Acute Care Provider Information: Community Services at Discharge Community Services at Home post discharge: Not Applicable Kandy BAE [facility] [phone] * William Blount MD - 10/17/2024 8:[address] [facility] Inpatient Discharge Summary Patient: Julien Gilbert Age: 39 y.o. CSN: [id number] Date of Admission: 10/05/2024 Date of Discharge: 10/17/2024 Attending Physician: Chelsy Lerner MD Primary Care Physician: Enedina Mcguire NP Diagnoses Present on Admission Past Medical History: Diagnosis Date Alcoholic cirrhosis of liver (CMS-HCC) Esophageal varices (CMS-HCC) Hepatorenal syndrome (CMS-HCC) Hypertension Other hyperlipidemia 07/26/2024 Renal cell carcinoma (CMS-HCC) Thrombocytopenia ([facility]-HCC) Thyroid disease Discharge Diagnoses Active Hospital Problems Diagnosis Date Noted Acute kidney injury superimposed on CKD (CMS-HCC) [N17.9, N18.9] 07/25/2024 Neck pain with history of cervical spinal surgery [M54.2, Z98.890] 10/07/2024 SBP (spontaneous bacterial peritonitis) (CMS-HCC) [K65.2] 09/08/2024 Anemia [D64.9] 09/05/2024 Metabolic acidosis with normal anion gap and bicarbonate losses [E87.20] 09/03/2024 GERD (gastroesophageal reflux disease) [K21.9] 09/03/2024 Renal mass, left [N28.89] 08/18/2024 Metabolic encephalopathy [G93.41] 07/26/2024 Thrombocytopenia (CMS-HCC) [D69.6] Decompensated cirrhosis (CMS-HCC) [K72.90, K74.60] 07/25/2024 Resolved Hospital Problems Diagnosis Date Noted Date Resolved Aphasia [R47.01] 10/06/2024 10/08/2024 Operations/Procedures Performed (include dates) Surgeries: Surgical/Procedural Cases on this Admission Case IDs Date Procedure Surgeon Location Status [id number] 10/10/24 EGD Lino Soto MD ENDOSCOPY Comp [id number] 10/14/24 Left Heart Cath Irving Matta MD CARDIAC CATH LABS Comp Lines and tubes: Patient Lines/Drains/Airways Status Active Line / PIV Line Name Placement date Placement time Site Days Peripheral IV Left Antecubital -- -- Antecubital -- Peripheral IV 10/08/24 Left Forearm 10/08/24 1425 Forearm 8 Other Procedures / Pertinent Imaging: MRI Abdomen W and WO contrast Final Result IMPRESSION: 1. Cirrhosis and sequela of portal hypertension including large volume ascites, splenomegaly, and varices. No suspicious hepatic lesions. 2. Thickening/edema of the stomach, small bowel, and colon, likely related to portal hypertension. 3. Ablated left renal lesion without evidence of local recurrence. Report Verified by: Alberto Rodriguez MD at 10/14/2024 12:02 PM EDT X-ray Mandible minimum 4-views Final Result IMPRESSION: 1. No acute osseous abnormality. Report Verified by: Diana Devlin MD at 10/08/2024 1:12 PM EDT US Duplex Pke-Qcq-[id number] Comp Final Result IMPRESSION: ABDOMEN 1. Cirrhotic liver morphology. No suspicious hepatic lesion. 2. Moderate volume of ascites. 3. Splenomegaly. LIVER DOPPLER 1. Patent hepatic vasculature with normal directional flow. 2. Recanalized umbilical vein as a sequela of portal hypertension, with multiple venous collateralsbordering the falciform ligament. Findings similar to prior. Report Verified by: Alberto Rodriguez MD at 10/07/2024 4:26 PM EDT US Abdomen Complete Final Result IMPRESSION: ABDOMEN 1. Cirrhotic liver morphology. No suspicious hepatic lesion. 2. Moderate volume of ascites. 3. Splenomegaly. LIVER DOPPLER 1. Patent hepatic vasculature with normal directional flow. 2. Recanalized umbilical vein as a sequela of portal hypertension, with multiple venous collateralsbordering the falciform ligament. Findings similar to prior. Report Verified by: Alberto Rodriguez MD at 10/07/2024 4:[address] Head WO contrast Final Result IMPRESSION: 1. No acute intracranial abnormality. 2. No intracranial mass effect or hemorrhage. Report Verified by: Sher Abrams MD at 10/06/2024 4:50 PM EDT X-ray Portable Chest Final Result IMPRESSION: Negative portable chest. Report Verified by: Eduardo Franks MD at 10/06/2024 2:33 AM EDT DXA bone density axial skeleton (Results Pending) Consulting Services (include reason) Allergies Allergies[1] Discharge Medications Medication List TAKE these medications, which are NEW Quantity/Refills FLUoxetine 20 MG capsule Commonly known as: PROZAC Take 1 capsule (20 mg total) by mouth daily. Quantity: 30 capsule Refills: 2 loratadine 10 mg tablet Commonly known as: CLARITIN Take 1 tablet (10 mg total) by mouth daily as needed for Allergies (itching). Quantity: 30 tablet Refills: 0 methocarbamoL 500 MG tablet Commonly known as: ROBAXIN Take 1 tablet (500 mg total) by mouth 3 times a day. Quantity: 90 tablet Refills: 0 midodrine 10 MG tablet Commonly known as: PROAMATINE Take 1 tablet (10 mg total) by mouth 3 times a day. Quantity: 90 tablet Refills: 0 naloxone 4 mg/actuation [place] Commonly known as: NARCAN Apply 1 spray in one nostril if needed. Call 911. May repeat dose in other nostril if no response in 3 minutes. Quantity: 2 each Refills: 1 oxyCODONE 5 MG immediate release tablet Commonly known as: ROXICODONE Take 1 tablet (5 mg total) by mouth every 6 hours as needed for up to 3 days. Quantity: 12 tablet Refills: 0 TAKE these medication, which have CHANGED Quantity/Refills lactulose 10 gram/15 mL solution Commonly known as: CHRONULAC Take 30 mLs (20 g total) by mouth 3 times a day. What changed: when to take this reasons to take this Quantity: 240 mL Refills: 0 TAKE these medications, which you were ALREADY TAKING Quantity/Refills ciprofloxacin HCl 500 MG tablet Commonly known as: CIPRO Take 1 tablet (500 mg total) by mouth daily. Quantity: 30 tablet Refills: 0 folic acid 1 MG tablet [...] mouth daily. Quantity: 30 tablet Refills: 0 ursodioL 300 mg capsule Commonly known as: ACTIGALL Take 1 capsule (300 mg total) by mouth 2 times a day. Quantity: 60 capsule Refills: 0 Xifaxan 550 mg Tab tablet Generic drug: rifAXIMin Take 1 tablet (550 mg total) by mouth 2 times a day. Quantity: 60 tablet Refills: 0 zinc sulfate 50 mg zinc (220 mg) capsule Commonly known as: ZINCATE Take 1 capsule (220 mg total) by mouth daily. Quantity: 60 capsule Refills: 0 STOP taking these medications traMADoL 50 mg tablet Commonly known as: ULTRAM Where to Get Your Medications These medications were sent to [facility] [address] [place] [id number] Hours: Sunday - Sunday: 8:00AM - 6:00PM FLUoxetine 20 MG capsule lactulose 10 gram/15 mL solution loratadine 10 mg tablet methocarbamoL 500 MG tablet midodrine 10 MG tablet naloxone 4 mg/actuation [place] oxyCODONE 5 MG immediate release tablet Discharge Exam Physical Exam Vitals reviewed. Constitutional: General: He is not in acute distress. Appearance: He is ill-appearing. HENT: Head: Normocephalic. Mouth/Throat: Mouth: Mucous membranes are moist. Pharynx: No oropharyngeal exudate. Eyes: General: Scleral icterus present. Cardiovascular: Rate and Rhythm: Regular rhythm. Tachycardia present. Pulses: Normal pulses. Heart sounds: Normal heart sounds. No murmur heard. No gallop. Pulmonary: Effort: Pulmonary effort is normal. No respiratory distress. Breath sounds: No wheezing or rales. Abdominal: General: There is distension (ascites present). Tenderness: There is no right CVA tenderness, left CVA tenderness, guarding or rebound. Musculoskeletal: General: Swelling present. Normal range of motion. Right lower leg: Edema present. Left lower leg: Edema present. Skin: Coloration: Skin is jaundiced. Neurological: Mental Status: He is alert and oriented to person, place, and time. Mental status is at baseline. Motor: No weakness. Reason for Admission Julien Gilbert is a 39 y.o. male with a past medical history of decompensated cirrhosis suspected dueto alcohol use (decompensated by Esophageal varices/gastric varices, HRS, Ascites, and Hepatic Encephalopathy), being worked up for liver transplant, HTN, HLD, Hypothyroidism, CKD (Basline ~2.5-2.9),Left sided RCC s/p ablation, small R kidney, who presents with confusion and lethargy. Hospital Course Active Hospital Problems Diagnosis Date Noted Acute kidney injury superimposed on CKD (CMS-HCC) [N17.9, N18.9] 07/25/2024 Neck pain with history of cervical spinal surgery [M54.2, Z98.890] 10/07/2024 SBP (spontaneous bacterial peritonitis) (CMS-HCC) [K65.2] 09/08/2024 Anemia [D64.9] 09/05/2024 Metabolic acidosis with normal anion gap and bicarbonate losses [E87.20] 09/03/2024 GERD (gastroesophageal reflux disease) [K21.9] 09/03/2024 Renal mass, left [N28.89] 08/18/2024 Metabolic encephalopathy [G93.41] 07/26/2024 Thrombocytopenia (CMS-HCC) [D69.6] Decompensated cirrhosis (CMS-HCC) [K72.90, K74.60] 07/25/2024 Resolved Hospital Problems Diagnosis Date Noted Date Resolved Aphasia [R47.01] 10/06/2024 10/08/2024 The patient was admitted with worsening encephalopathy, suspected secondary to decompensated alcoholic cirrhosis. Initial concerns for hyperammonemia were ruled out by normal ammonia levels. Infectious workup including blood and urine cultures was negative. Recent C. difficile treated with oral vancomycin, though diarrhea persisted. Paracentesis cultures from outside hospital initially suggested possible spontaneous bacterial peritonitis (SBP) but later cultures were negative; IV vancomycin wasdiscontinued, and patient resumed home SBP prophylaxis with ciprofloxacin. Patient underwent hepatology evaluation with daily MELD monitoring. Received albumin infusions and was started on midodrine. GI performed EGD without acute findings. Stress echocardiogram was not tolerated; left heart catheterization scheduled. MRI brain ruled out acute causes for aphasia, confirming metabolic encephalopathy. Anemia was managed with packed red blood cell transfusion. Non-oliguric NADIYA on CKD addressed with nephrology consult; home diuretics held and albumin challenge administered. Renal transplant evaluation initiated concurrently with liver transplant workup due to history of RCC and chronic kidney disease. A hepatic lesion was noted on imaging, with plans for triphasic MRI to clarify diagnosis. No concerning lesions were seen on the triphasic MRI. LHC with patent coronary arteries, no evidence of significant epicardial disease. Pt monitored for renal function/GFR following contrast. Nephrology recommending follow up evaluation for and initiation of oral diuretic regimen. Counseled patient on following up with PCP to discuss recommended regimen of PO torsemide 20 mg daily. Supportive care included continuation of lactulose, rifaximin, zinc, ursodiol, thiamine, and home medications for GERD, hypertension, hypothyroidism, and hyperlipidemia. Pain management with oxycodone PRN and Robaxin for cervical spine pain. Condition on Discharge 1. Functional Status: normal Describe limitations, if any: n/a 2. Mental Status: Alert/Oriented Describe limitations, if any: n/a 3. Dietary Restrictions / Tube Feeding / TPN Diet/Nutrition Orders Diet Regular(7) Frequency: Effective Now Number of Occurrences: Until Specified Order Questions: Suicide/Behavior Risk Modification? No Dietary nutrition supplements Frequency: TID Number of Occurrences: Until Specified Order Comments: Vanilla boost Order Questions: Select Supplement: Boost-1 kcal/ml supplement ([facility] only) As listed above, low sodium diet 4. Discharge specific orders: None required 5. Core measures followed: (if this is a core measure patient) Discharge Weight: (!) 263 lb 8 oz (119.5 kg) Disposition Home independent Follow-Up Appointments Future Appointments Date Time Provider Department Center 12/02/2024 2:00 PM GI/LIVER FELLOW [facility] No follow-up provider specified. Please schedule an appointment for this October 20 with your primary care provider to discussinitiation of PO torsemide 20mg daily, per Nephrology recommendations. Signed: WILLIAM BLOUNT MD 10/17/2024, 9:38 AM [1] Allergies Allergen Reactions Adhesive Itching and Rash Tegaderm adhesive on Ivs, pt states its tolerable Duloxetine Other (See Comments) Became Manic Cosigned by Chelsy Lerner MD at 10/17/2024 1:13 PM EDT Associated attestation - Chelsy Lerner MD - 10/17/2024 1:13 PM EDT Hospital Medicine Attending Supervision Note Julien Gilbert was seen on rounds with the resident physician/AI on the day of discharge. I personally interviewed and examined the patient. I reviewed the documentation by the resident/AI and agree asdocumented unless as stated below. Improvement in Cr today. Per nephrology, would like for patient to start torsemide 20mg as an outpatient with PCP. Will need follow up with nephrology around 10/22 when plan will be made to list patient for SLK if GFR <30. CHELSY LERNER MD Attending Physician Department of Internal Medicine 10/17/2024 1:12 PM I spent >30 minutes coordinating this discharge. documented in this encounter Discharge Instructions * Discharge Instructions* William Blount MD - 10/17/2024 9:13 AM EDT Julien Gilbert, Here are your hospital discharge instructions: --> You were hospitalized for: worsening encephalopathy, electrolyte imbalances, treatment of C.Difficile, and workup for liver/kidney transplant. You were evaluated by transplant hepatology as well as our nephrology team and should continue to follow closely with our liver transplant team. --> Medication changes: 1) Increase your lactulose to 30 mLs (20 g total) three times per day. Please ensure you are havingat least 3 bowel movements daily. 2) Stop taking Tramadol 50 mg as needed. I am sending you with oxycodone and you will need to see your PCP within several days of discharge. --> New medications: 1) Fluoxetine 20mg daily 2) Loratadine (Claritin) 10 mg daily for itching 3) Methocarbamol 500 mg three times daily 4) Midodrine 10 mg three times daily 5) Oxycodone 5 mg every 6 hours as needed for up to 3 days. 6) I am also sending you with Narcan which is an opioid reversal agent which you can take as need --> Other Instructions: 1) Please follow up for a paracentesis as soon as possible with your local provider. 2) Please schedule an appointment with your primary care provider as soon as possible to discuss initiation of oral torsemide 20mg daily for management of fluid retention. Your pain medications will also be managed outpatient. 3) Please do not hesitate to reach out to our transplant hepatology team if you have any questions or concerns Thank you, Internal Medicine Team (Blue team) Future Appointments Date Time Provider Department Center 12/02/2024 2:00 PM GI/LIVER FELLOW [facility] documented in this encounter Medications at Time of Discharge FLUoxetine (PROZAC) 20 MG capsule Take 1 capsule (20 mg total) by mouth daily. 30 capsule 2 10/17/2024 10:24 AM EDT 10/17/2024 levothyroxine (SYNTHROID) 75 MCG tablet Take 1 tablet (75 mcg total) by mouth every morning before breakfast. loratadine (CLARITIN) 10 mg tablet Take 1 tablet (10 mg total) by mouth daily as needed for Allergies (itching). 30 tablet 10/17/2024 10:24 AM EDT 10/17/2024 naloxone (NARCAN) 4 mg/actuation [place] Apply 1 spray in one nostril if needed. Call 911. May repeat dose in other nostril if no response in 3 minutes. 2 each 1 10/17/2024 10:25 AM EDT 10/17/2024 oxyCODONE (ROXICODONE) 5 MG immediate release tabletIndications :Pain Take 1 tablet (5 mg total) by mouth every 6 hours as needed for up to 3 days. 12 tablet 10/17/2024 10:24 AM EDT 10/17/2024 5 ciprofloxacin HCl (CIPRO) 500 MG tablet Take 1 tablet (500 mg total) by mouth daily. 30 tablet 09/09/2024 3:56 PM EDT 09/10/2024 5 folic acid (FOLVITE) 1 MG tablet Take 1 tablet (1 mg total) by mouth daily. 5 lactulose (CHRONULAC) 10 gram/15 mL solution Take 30 mLs (20 g total) by mouth 3 times a day. 946 mL 10/17/2024 10:24 AM EDT 10/17/2024 5 methocarbamoL (ROBAXIN) 500 MG tablet Take 1 tablet (500 mg total) by mouth 3 times a day. 90 tablet 10/17/2024 10:24 AM EDT 10/17/2024 5 midodrine (PROAMATINE) 10 MG tablet Take 1 tablet (10 mg total) by mouth 3 times a day. 90 tablet 10/17/2024 10:24 AM EDT 10/17/2024 5 pantoprazole (PROTONIX) 40 MG tablet Take [...] by mouth daily. 30 tablet 09/09/2024 5 ursodioL (ACTIGALL) 300 mg capsule Take 1 capsule (300 mg total) by mouth 2 times a day. 60 capsule 09/09/2024 3:56 PM EDT 09/09/2024 5 zinc sulfate (ZINCATE) 50 mg zinc (220 mg) capsule Take 1 capsule (220 mg total) by mouth daily. 60 capsule 08/19/2024 1:23 PM EDT 08/20/2024 5 documented as of this encounter Progress Notes * Jerad Hughes MD - 10/17/2024 10:23 AM EDT [facility] PROGRESS NOTE Name: Julien Gilbert CSN: [id number] Consulted by: Chelsy Lerner MD Reason for Consult: Decompensated Cirrhosis History of Present Illness: Julien Gilbert is a 39 y.o. with history of decompensated EtOH cirrhosis (complicated by EV, HRS, ascites, HE), HTN, and CKD who was transferred from [facility] for altered mental status. Interval History -Patient is alert and oriented today - Seen on transplant rounds, getting ready for discharge Review of Systems -all systems reviewed; negative unless stated above Past Medical History: Diagnosis Date Alcoholic cirrhosis of liver (CMS-HCC) Esophageal varices (CMS-HCC) Hepatorenal syndrome (CMS-HCC) Hypertension Other hyperlipidemia 07/26/2024 Renal cell carcinoma (CMS-HCC) Thrombocytopenia (CMS-HCC) Thyroid disease Past Surgical History: Procedure Laterality Date ESOPHAGOGASTRODUODENOSCOPY N/A 10/10/2024 Procedure: EGD; Surgeon: Lino Soto MD; Location: ENDOSCOPY; Service: Gastroenterology; Laterality: N/A; LEFT HEART CATH N/A 10/14/2024 Procedure: Left Heart Cath; Surgeon: Irving Matta MD; Location: CARDIAC CATH LABS; Service:Cath; Laterality: N/A; History reviewed. No pertinent family history. Social History Tobacco Use Smoking status: Former Types: Cigarettes Smokeless tobacco: Current Substance Use Topics Alcohol use: Yes Comment: History of alcohol abuse, reports no use in 3 week- typically endorses use as 4 glasses ofwine a days Allergies[1] Scheduled Meds: ciprofloxacin HCl 500 mg Oral Q24H FLUoxetine 20 mg Oral Daily 0900 folic acid 1 mg Oral Daily 0900 heparin 5,000 Units Subcutaneous 3 times per day lactulose 20 g Oral TID levothyroxine 75 mcg Oral QAM AC melatonin 6 mg Oral Daily with dinner methocarbamoL 500 mg Oral TID midodrine 10 mg Oral TID pantoprazole 40 mg Oral QAM AC rifAXIMin 550 mg Oral BID sodium bicarbonate 1,300 mg Oral TID thiamine HCl 100 mg Oral Daily 0900 ursodioL 300 mg Oral BID zinc sulfate 220 mg Oral Daily 0900 Continuous Infusions: PRN Meds: acetaminophen, diphenhydrAMINE-zinc acetate, loratadine, metoprolol tartrate, ondansetron, oxyCODONE OR oxyCODONE Prior to Admission Meds: Home Medications Medication Sig Taking? Last Dose ciprofloxacin HCl (CIPRO) 500 MG tablet Take 1 tablet (500 mg total) by mouth daily. Yes Past Week FLUoxetine (PROZAC) 20 MG capsule Take 1 capsule (20 mg total) by mouth daily. Yes folic acid (FOLVITE) 1 MG tablet Take 1 tablet (1 mg total) by mouth daily. Yes Past Week lactulose (CHRONULAC) 10 gram/15 mL solution Take 30 mLs (20 g total) by mouth 3 times a day. Yes levothyroxine (SYNTHROID) 75 MCG tablet Take 1 tablet (75 mcg total) by mouth every morning before breakfast. Yes 10/05/2024 loratadine (CLARITIN) 10 mg tablet Take 1 tablet (10 mg total) by mouth daily as needed for Allergies (itching). Yes methocarbamoL (ROBAXIN) 500 MG tablet Take 1 tablet (500 mg total) by mouth 3 times a day. Yes midodrine (PROAMATINE) 10 MG tablet Take 1 tablet (10 mg total) by mouth 3 times a day. Yes oxyCODONE (ROXICODONE) 5 MG immediate release tablet Take 1 tablet (5 mg total) by mouth every 6 hours as needed for up to 3 days. Yes pantoprazole (PROTONIX) 40 MG tablet Take 1 tablet (40 mg total) by mouth every morning before breakfast. Yes Past Week potassium chloride (KLOR-CON M20) 20 MEQ tablet Take 2 tablets (40 mEq total) by mouth daily. Yes Past Week rifAXIMin (XIFAXAN) 550 mg Tab tablet Take 1 tablet (550 mg total) by mouth 2 times a day. Yes 10/05/2024 Morning sodium bicarbonate 650 MG tablet Take 2 tablets (1,300 mg total) by mouth 3 times a day. Yes 10/05/2024 Morning thiamine HCl (VITAMIN B-1) 100 MG tablet Take 1 tablet (100 mg total) by mouth daily. Yes Past Week ursodioL (ACTIGALL) 300 mg capsule Take 1 capsule (300 mg total) by mouth 2 times a day. Yes 10/05/2024 Morning zinc sulfate (ZINCATE) 50 mg zinc (220 mg) capsule Take 1 capsule (220 mg total) by mouth daily. Yes Past Week naloxone (NARCAN) 4 mg/actuation [place] Apply 1 spray in one nostril if needed. Call 911. May repeat dose in other nostril if no response in 3 minutes. Vitals: Temp: [97.7 ??F (36.5 ??C)-98.1 ??F (36.7 ??C)] 98 ??F (36.7 ??C) Heart Rate: [85-96] 96 Resp: [17-18] 18 BP: (104-124)/(52-60) 104/54 Intake/Output Summary (Last 24 hours) at 10/17/2024 1023 Last data filed at 10/17/2024 0600 Gross per 24 hour Intake 960 ml Output -- Net 960 ml Physical Exam Gen: No acute distress. Resting in bed. HEENT:. + scleral icterus. CV: Regular rate and rhythm. Lungs:Comfortable on RA Abdomen: Soft, nontender, distended Skin: jaundiced Neuro: Alert. No focal deficits. No asterixis Psych: Appropriate mood and affect. Laboratory: Lab Results Component Value Date WBC 5.8 10/16/2024 HGB 7.7 (L) 10/16/2024 HCT 22.1 (L) 10/16/2024 MCV 102.3 (H) 10/16/2024 PLT 43 (L) 10/16/2024 Lab Results Component Value Date NA 133 10/17/2024 K 3.4 (L) 10/17/2024 CL 104 10/17/2024 CO2 18 (L) 10/17/2024 BUN 54 (H) 10/17/2024 CREATININE 2.88 (H) 10/17/2024 GLUCOSE 127 (H) 10/17/2024 CALCIUM 8.2 (L) 10/17/2024 PHOS 4.5 10/17/2024 Lab Results Component Value Date AST 45 (H) 10/16/2024 ALT 23 10/16/2024 BILITOT 7.6 (H) 10/16/2024 BILIDIRECT 3.97 (H) 10/16/2024 PROT 5.1 (L) 10/16/2024 ALBUMIN 3.1 (L) 10/17/2024 ALKPHOS 137 (H) 10/16/2024 Lab Results Component Value Date INR 1.9 (H) 10/16/2024 Lab Results Component Value Date HEPAIGM Nonreactive 10/07/2024 HEPBIGM Nonreactive 09/03/2024 Microbiology: Lab Results Component Value Date LABGRAM Cytospin Results: 10/10/2024 LABGRAM Polymorphonuclear Leukocytes Seen; 10/10/2024 LABGRAM No Organisms Seen; 10/10/2024 MELD 3.0: 34 at 10/17/2024 5:48 AM Calculated from: Serum Creatinine: 2.88 mg/dL at 10/17/2024 5:48 AM Serum Sodium: 133 mmol/L at 10/17/2024 5:48 AM Total Bilirubin: 7.6 mg/dL at 10/16/2024 6:31 AM Serum Albumin: 3.4 g/dL at 10/16/2024 6:31 AM INR(ratio): 1.9 at 10/16/2024 6:31 AM Age at listing (hypothetical): 39 years Sex: Male at 10/17/2024 5:48 AM Assessment/Plan: This is a 39 year old male history of ETOH cirrhosis d/b HE, ascites with SBP who is admitted for AMS. Precipitant of his HE likely SBP. Diagnostic paracentesis at OSH reportedly showed 61 nucleated cells, <2000 RBCs 10% Polynuclear, 90% [place] nuc. There were initial reports of gram + rods on fluid gram stain but this has also been reported as NGTD. Mental status improved after course of ceftriaxone. Patient completed work up for liver transplant. Anticipate listing him for SLK next week. Patient discharging today. Plan/Recommendation # HE # Hx of SBP -Improved with course of CTX for bacterascites. - continue cipro for secondary prophylaxis -continue rifaximin, Zinc, and lactulose; titrate to 3 bowel movements daily # NADIYA on CKD -Most likely 2/2 to HRS-NADIYA . - Cr stabilized, liklely new baseline. - If GFR < 30 until 10/22 will qualify for SLK -#Ascites -PRN paracentesis - Low Na diet #Varices- -history of bleeding gastric Evs s/p coliing in 06/2022. EGD 10/09 - PHG, medium sized Evs (no band). Not BB tolerant. # History of RCC s/p cryoablation # Indeterminate liver lesion on outside CT # Indeterminate Renal lesion on outside CT - OSH CT A/P with iso-attenuating round nodular outpouching in inf R lobe measuring 3.6 x 3.8cm. Also exophytic renal mass. - AFP WNL - MRI to evaluate liver and kidney lesions complete, no concerning lesions identified #Transplant: -patient has completed 8/12 weeks CD treatment required to be considered for transplant. Plans amenable to completing treatment post transplant. - History of anxiety/ PTSD . Started on fluoxetine. -discussed at transplant selection meeting and inpatient transplant eval is completed. - Patient will qualify for SLK if eGFR remains <30 until October 22. Anticipate listing him at that time Patient seen and discussed with the attending physician, Dr Sidhu. Recommendations are final following attestation JERAD HUGHES MD PGY-5 10/17/2024, 10:23 AM [1] Allergies Allergen Reactions Adhesive Itching and Rash Tegaderm adhesive on Ivs, pt states its tolerable Duloxetine Other (See Comments) Became Manic Cosigned by Chinedu Sidhu MD at 10/18/2024 1:23 PM EDT Associated attestation - Chinedu Sidhu MD - 10/18/2024 1:23 PM EDT I saw and examined the patient. I discussed with the resident or fellow and agree with resident's/fellow's findings and plan as documented in the note. Copied / pasted information was reviewed and confirmed to be accurate. For ROS, please see resident /fellow note, but all other ROS reviewed and negative. Please also see below. Patient seen and examined on 10/17/2024. Briefly, 39-year-old gentleman with decompensated cirrhosis secondary to alcohol with MELD of 34 admitted for altered mental status. His liver disease has been decompensated by hepatic encephalopathy, ascites, SBP. He is undergoing evaluation for liver transplantation. Also history of RCC status post cryoablation. Patient with known cirrhosis with continued alcohol use. He is sober now since July 2024.He is undergoing chemical dependency treatment and has completed 8 of planned 12 weeks. Completed course of ceftriaxone for bacterial ascites and now on Cipro. HE is controlled. Creatinine is near 3.MRI with no liver lesions, ablated left renal lesion without recurrence. Left heart cath with no evidence of obstructive coronary disease. 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 He has now improved and undergoing liver transplant evaluation. - Daily MELD labs - Cipro for secondary prophylaxis of SBP - As needed paracentesis. Low-sodium diet - Continue lactulose, rifaximin, and zinc - MRI with no liver lesions and treated RCC without recurrence - Undergoing transplant evaluation with plan for completion of chemical dependency treatment as outpatient. - [facility] with no obstructive coronary disease - Psych eval for PTSD With recommendation of sertraline - Given his renal dysfunction, will plan to list for SLK when he qualifies on 10/22/2024. Labs next week - Plan for d/c today Bobby Sidhu MD Transplant Family Preservation Worker Please see the body of the resident, [...] reviewed independently any interval liver pathology. * Soco Milton RN - 10/17/2024 6:35 AM EDT Informed patient that they were identified as a high fall risk patient and educated on the importance of a bed/chair alarm. Having an alarm placed helps to notify staff to come to room to check on patient when alerting. Patient was educated on risk for fall with possible injury and verbalize understanding but continues to refuse alarm. * Jeremiah Gamino MD - 10/16/2024 8:26 PM EDT Images from the original note were not included. Department of Internal Medicine Nephrology & Hypertension Progress note Patient: Julien Gilbert Date of Admit: 10/05/2024 Referring physician: Chelsy Lerner MD Summary Julien Gilbert is 39 y.o. male with liver cirrhosis, and NADIYA. AMS improved. Transplant evaluation for OLT ongoing. To be eligible for kidney txp- GFR remains <30 until October 22. Waiting for [facility] today. ASSESSMENT NADIYA on CKD, last discharge creatinine 2.4 Baseline Creatinine 1.2-1.3, HRS- NADIYA as no response to holding lasix and albumin UA bland Urine lytes <10/< 15/ 50 Renal Function: Recent Labs 10/16/24 0631 10/15/24 0608 10/14/24 0253 BUN 55* 55* 55* CREATININE 3.20* 2.88* 3.01* Electrolytes: Na: 135 K: 3.7 Cl: 106 Alb: 3.4; 3.4 Ma.1 Ca: 8.5 Phos: 4.2 Acid Base Status: Anion Gap: 13 Bicarb: 16 Hypertension/CVS: BP: 109/52 Mineral Bone Disease: Ca: 8.5 PO4: 4.2 PTH: No results found for requested labs within last 3600 days. on No results found for requested labs within last 3600 days. Vit D: 7.1 on 10/08/2024 Anemia of CKD: Hgb 7.7 Iron 81 on 10/08/2024 Ferritin 706.9 on 10/08/2024 TIBC: SEE COMMENT on 10/08/2024 Iron%- Iron replete PLAN -worsening creatinine noted -Course additional NADIYA on existing derranged kidney function can be unpredictable -assessing daily for the need of dialysis -post discharge follow up requested. Thank you for allowing us to participate in this patient's care. Discussed with Consult Staff. Jeremiah Gamino PGY4 Nephrology. Pager no. [phone] Chief Complaint No chief complaint on file. Reason for Consult NADIYA History of Present Illness Julien Gilbert is a 39 y.o. y/o male with alcoholic cirrhosis, on twice weekly paracentesis, hepatic encephalopathy, esophageal varices, presented with AMS- SBP resolved after treatment. S/p albumin x 3 Worsening creatinine - hence nephrology was consulted Histories he has a past medical history of Alcoholic cirrhosis of liver (CMS-HCC), Esophageal varices (CMS-HCC), Hepatorenal syndrome (CMS-HCC), Hypertension, Other hyperlipidemia (07/26/2024), Renal cell carcinoma (CMS-HCC), Thrombocytopenia (CMS-HCC), and Thyroid disease. he has a past surgical history that includes Esophagogastroduodenoscopy (N/A, 10/10/2024) and Left Heart Cath (N/A, 10/14/2024). he family history is not on file. he reports that he has quit smoking. His smoking use included cigarettes. He uses smokeless tobacco. He reports current alcohol use. He reports current drug use. Drug: Marijuana. Allergies[1] Medications- reviewed Physical Exam Constitutional: Normal appearance. HENT: Head: Normocephalic and atraumatic. Nose: Nose normal. Eyes: Pupils: Pupils are equal, round, and reactive to light. Cardiovascular- Pulses: Normal pulses. Heart sounds: Normal heart sounds. Pulmonary: Breath sounds: Normal breath sounds. Abdominal: Palpations: Abdomen is soft. Musculoskeletal: General: Normal range of motion. SkinGeneral: Skin is warm and dry. Neurological: No focal deficit present. Mental Status: alert and oriented to person, place, and time. Psychiatric: Behavior: Behavior normal. In addition to the above an extensive amount of complex data in the patients lab and chart were reviewed. Diagnostic Imaging Reviewed in EMR. [1] Allergies Allergen Reactions Adhesive Itching and Rash Tegaderm adhesive on Ivs, pt states its tolerable Duloxetine Other (See Comments) Became Manic Cosigned by Dwayne Paez MD at 10/16/2024 9:35 PM EDT Associated attestation - Dwayne Paez MD - 10/16/2024 9:35 PM EDT I saw and examined the patient. I discussed with the resident or fellow and agree with Dr. Gamino's findings and plan as documented in the note. Patient had left heart catheterization. Coronary arteries patent. Unfortunately urine output has dwindled as expected. Patient's creatinine also is climbing up. His urine output has not picked up as well. Hopefully this will all be related to the contrast and if so should expected to improve in the next24 hours. If not he might need to be initiated on dialysis. Patient is aware of this risks and is willing to wait out so that he can get onto a liver transplant list. Please note that if the GFR is below 30 patient will be considered for SLK as well. Dwayne Paez MD, This note was completely [...] evaluation and management for this patient. * William Blount MD - 10/16/2024 2:16 PM EDT Department of Internal Medicine Daily Progress Note Chief Complaint / Reason for Follow-Up Julien Gilbert is a 39 y.o. male on hospital day 11. The principal reason for today's follow up visitis Acute kidney injury superimposed on CKD (CMS-HCC). No acute events overnight. No chest pain, no shortness of breath. Discussed plan to remain inpatient for an additional day to monitor renal function and perform paracentesis tomorrow prior to discharge. Review of Systems (Focused) Review of systems negative except as noted above. Medications Scheduled Meds: ciprofloxacin HCl 500 mg Oral Q24H folic acid 1 mg Oral Daily 0900 heparin 5,000 Units Subcutaneous 3 times per day lactulose 20 g Oral TID levothyroxine 75 mcg Oral QAM AC melatonin 6 mg Oral Daily with dinner methocarbamoL 500 mg Oral TID midodrine 10 mg Oral TID pantoprazole 40 mg Oral QAM AC rifAXIMin 550 mg Oral BID sertraline 50 mg Oral Daily 0900 sodium bicarbonate 1,300 mg Oral TID thiamine HCl 100 mg Oral Daily 0900 ursodioL 300 mg Oral BID zinc sulfate 220 mg Oral Daily 0900 Continuous Infusions: n/a PRN Meds: acetaminophen, diphenhydrAMINE-zinc acetate, loratadine, metoprolol tartrate, ondansetron, oxyCODONE OR oxyCODONE Vital Signs Temp: [97.5 ??F (36.4 ??C)-97.8 ??F (36.6 ??C)] 97.7 ??F (36.5 ??C) Heart Rate: [80-93] 93 Resp: [14-20] 18 BP: (92-124)/(36-62) 124/60 Intake/Output Summary (Last 24 hours) at 10/16/2024 1416 Last data filed at 10/16/2024 0633 Gross per 24 hour Intake 480 ml Output -- Net 480 ml Physical Exam Physical Exam Constitutional: Appearance: He is ill-appearing. He is not diaphoretic. HENT: Head: Normocephalic and atraumatic. Mouth/Throat: Mouth: Mucous membranes are moist. Pharynx: Oropharynx is clear. Eyes: General: Scleral icterus present. Extraocular Movements: Extraocular movements intact. Cardiovascular: Rate and Rhythm: Normal rate and regular rhythm. Pulses: Normal pulses. Pulmonary: Effort: Pulmonary effort is normal. Breath sounds: Normal breath sounds. Abdominal: General: There is distension. Tenderness: There is abdominal tenderness. Musculoskeletal: Cervical back: Tenderness present. Right lower leg: Edema present. Left lower leg: Edema (pt states LLE typically larger; no pain, warmth, or redness appreciated on exam) present. Comments: 2+ edema on R 3+ edema on L Skin: General: Skin is dry. Coloration: Skin is jaundiced. Neurological: General: No focal deficit present. Mental Status: He is alert and oriented to person, place, and time. Cranial Nerves: Cranial nerves 2-12 are intact. No cranial nerve deficit. Motor: No weakness. Psychiatric: Mood and Affect: Mood normal. Behavior: Behavior normal. Thought Content: Thought content normal. Cognition and Memory: Cognition normal. Laboratory Data CBC 10/16/2024 \ 7.7 / 5.8 \ / 43 / \ / 22.1 \ Differential 09/16/2024 N 84.2 L 8.0 M 5.1 E 1.5 B 0.7 Renal 10/16/2024 135 106 55 / ___ __ / 121 \ 3.7 16 3.20 \ Ca 8.5 (10/16/2024) Mg 2.1 (10/16/2024) Phos 4.2 (10/16/2024) Lipids Lab Results Component Value Date CHOLTOT <25 10/07/2024 TRIG 30 10/07/2024 HDL 4 (L) 10/07/2024 LDL See Note 10/07/2024 LFTs 10/16/2024 \ 7.6 / \ 3.97 / 45 \ / 23 / \ / 137 \ PT/INR/PTT - 10/16/2024 PT 22.5 INR 1.9 PTT No results found for requested labs within last 3600 days. Invalid input(s): WBCCAST , [place] MELD 3.0: 34 at 10/16/2024 6:31 AM Calculated from: Serum Creatinine: 3.2 mg/dL (Using max of 3 mg/dL) at 10/16/2024 6:31 AM Serum Sodium: 135 mmol/L at 10/16/2024 6:31 AM Total Bilirubin: 7.6 mg/dL at 10/16/2024 6:31 AM Serum Albumin: 3.4 g/dL at 10/16/2024 6:31 AM INR(ratio): 1.9 at 10/16/2024 6:31 AM Age at listing (hypothetical): 39 years Sex: Male at 10/16/2024 6:31 AM No results found for: NTPROBNP Lab Results Component Value Date TSH 0.81 10/07/2024 FREET4 0.74 09/03/2024 Diagnostic Studies MRI Abdomen W and WO contrast Final Result IMPRESSION: 1. Cirrhosis and sequela of portal hypertension including large volume ascites, splenomegaly, and varices. No suspicious hepatic lesions. 2. Thickening/edema of the stomach, small bowel, and colon, likely related to portal hypertension. 3. Ablated left renal lesion without evidence of local recurrence. Report Verified by: Alberto Rodriguez MD at 10/14/2024 12:02 PM EDT X-ray Mandible minimum 4-views Final Result IMPRESSION: 1. No acute osseous abnormality. Report Verified by: Diana Devlin MD at 10/08/2024 1:12 PM EDT US Duplex Hft-Lge-Hdijbyc Comp Final Result IMPRESSION: ABDOMEN 1. Cirrhotic liver morphology. No suspicious hepatic lesion. 2. Moderate volume of ascites. 3. Splenomegaly. LIVER DOPPLER 1. Patent hepatic vasculature with normal directional flow. 2. Recanalized umbilical vein as a sequela of portal hypertension, with multiple venous collateralsbordering the falciform ligament. Findings similar to prior. Report Verified by: Alberto Rodriguez MD at 10/07/2024 4:26 PM EDT US Abdomen Complete Final Result IMPRESSION: ABDOMEN 1. Cirrhotic liver morphology. No suspicious hepatic lesion. 2. Moderate volume of ascites. 3. Splenomegaly. LIVER DOPPLER 1. Patent hepatic vasculature with normal directional flow. 2. Recanalized umbilical vein as a sequela of portal hypertension, with multiple venous collateralsbordering the falciform ligament. Findings similar to prior. Report Verified by: Alberto Rodriguez MD at 10/07/2024 4:[address] Head WO contrast Final Result IMPRESSION: 1. No acute intracranial abnormality. 2. No intracranial mass effect or hemorrhage. Report Verified by: Sher Abrams MD at 10/06/2024 4:50 PM EDT X-ray Portable Chest Final Result IMPRESSION: Negative portable chest. Report Verified by: Eduardo Franks MD at 10/06/2024 2:33 AM EDT DXA bone density axial skeleton (Results Pending) Assessment & Plan Julien Gilbert is a 39 y.o. male on HD# 11 with Acute kidney injury superimposed on CKD (CMS-HCC). The medical issues being addressed in today's encounter are as follows: Principal Problem: Acute kidney injury superimposed on CKD (CMS-HCC) Active Problems: Decompensated cirrhosis (CMS-HCC) Metabolic encephalopathy Thrombocytopenia (CMS-HCC) Renal mass, left Metabolic acidosis with normal anion gap and bicarbonate losses GERD (gastroesophageal reflux disease) Anemia SBP (spontaneous bacterial peritonitis) (CMS-HCC) Neck pain with history of cervical spinal surgery #Encephalopathy, improved Pt noted to have waxing and waning encephalopathy at home over the last few days, initially suspected to be hyperammonemia by and patient, somewhat improved initially with lactulose; however encephalopathy subsequently worsened again. Notably, pt has a history of decompensated cirrhosis episodes including HRS and hepatic encephalopathy. Currently maintain high suspicion for toxic/metabolic encephalopathy in the setting of possible decompensated alcoholic cirrhosis. Continued to have diarrheal episodes despite completion of oral vancomycin for recent C. Diff. OSH labs with low bicarb to 17 and normal lactate, so will give consideration to ongoing C. Diff. Vanc and CTX discontinued following negative growth from ascites fluid. - Ammonia level 10/06: 77 within normal range - Ethanol level, Tylenol level. Salicylate level 10/06: All Low, no concern for toxin-induced etiology at this time. - PETH labs - negative - COVID/Flu/RSV(-) - UA, Blood Cx 10/07: No growth to date - Continue home lactulose and rifaximin - Follow up OSH paracentesis studies, will continue CTX until report communicated -Report showed growth of Gram + rods, pt started on IV Vancomycin -10/10: GI able to connect with OSH lab this AM who stated that no growth from ascites. Vanc dced on10/10. CTX DCed after 10/11 dose. - Continue Cipro 500mg daily for SBP Prophylaxis #Decompensated Alcoholic Cirrhosis #Transplant evaluation Pt abdomen non-acute. Does appear significantly jaundiced with scleral icterus. Bedside paracentesis performed at OSH. Concern for possible SBP but reassured by lack of fever and hemodynamically stable status. Triphasic MRI - MELD labs Daily - Continue home Cipro prophylaxis for SBP - Continue home Zinc - Continue home ursodiol - Hepatology consult placed, appreciate recs EGD on 10/09 - s/p 3 days of Albumin infusion - Pt did not tolerate Stress ECHO on 10/09 - LHC normal on 10/14 - Per GI recs, started on midodrine 10mg TID #Anemia Hgb 6.9 on 10/08. Likely dilutional due to albumin treatment. S/p 1u pRBCs - CTM #NAGMA, resolved Pt found to have a pH of 7.21 upon admission to , with a HCO3 18 and pCO2 41. Pt is Rx Bicarb tablets at home and has a known history of CKD. pH was improved 7.27 later in the morning. NAGMA likely due to GI loss due to lactulose and diuresis. -Continue home oral Bicarb #SBP Previously was previously on Cipro for SBP prophylaxis. Pt started on 2g of IV CTX at admission.. -Outside results obtained on 10/07 showed growth of Gram+ rods from most recent therapeutic paracentesis. 10/07: Started on IV Vancomycin based on results from outside facility. Ultimately cultures NGTD. Was transitioned back to home cipro ppx. - continue cipro 500 daily for SBP prophylaxis #Aphasia (resolved) Patient appears to be unable to name objects when asked, but can readily follow commands. Additionally, pt is unable to verbally answer orientation questions. Authors was able to see pt is frustratedin his inability to verbally communicate. It appears that this waxes and wanes and could be attributed to his encephalopathy, though patient has never presented with this symptom and no head imaging has been performed at [facility]. -CT Head w/o contrast -Imaging showed no concern for acute etiology of aphasia. -Will CTM, most likely due to metabolic/toxic encephalopathy #H/o GI Bleed Pt with history of GI bleed in setting of gastric varices, for which IR at OSH had to place 17 coils. 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 - Has previously been on beta blockade for variceal prevention, but did not tolerate beta dominic due to hypotension. - s/p EGD 10/09 #Non-Oliguric NADIYA on CKD Patient noted on OSH labs to have creatinine of 3.6. Baseline creatinine appears to range 2.5-2.9. Per , pt makes urine and has never required dialysis. Pt is s/p LHC (given contrast) - Repeat renal panel to monitor post-contrast renal function - Continue home bicarb tablets - Nephro consult, appreciate recs - Holding home diuretics - Strict I/O's - Workup for Kidney transplant to run concurrently with Liver transplant #h/o Left Sided RCC s/p cryoablation Cryoablation was done 2022. On CT A/P at OSH, pt noted to have persistent L sided exophytic renal mass. -renal consults and Renal Transplant team is following. Workup for Kidney transplant to run concurrently with eval for liver transplant #Hepatic Lesion of Unknown etiology OSH CT A/P with iso-attenuating round nodular outpouching in inf R lobe measuring 3.6 x 3.8cm. Differential to include cyst vs metastatic RCC vs primary hepatic tumor - Hepatology consult, appreciate recs - Triphasic MRI demonstrating sequela of cirrhosis and portal hypertension; no suspicious hepatic lesions #History of AUD - Continue home thiamine repletion - PETH and ETOH level as above #History of Cervical Fusion #Neck Pain -PRN Oxy Pain Meds -Robaxin TID #GERD - continue home protonix #HTN - holding home meds in setting of hypotension; pt currently on midodrine 10mg TID #HLD #Hypothyroidism - continue home synthroid Nutrition: Diet/Nutrition Orders Diet Regular(7) Frequency: Effective Now Number of Occurrences: Until Specified Order Questions: Suicide/Behavior Risk Modification? No Dietary nutrition supplements Frequency: TID Number of Occurrences: Until Specified Order Comments: Vanilla boost Order Questions: Select Supplement: Boost-1 kcal/ml supplement ([facility] only) Code Status: Full Code Signed: WILLIAM BLOUNT MD 10/16/2024, 2:16 PM Cosigned by Chelsy Lerner MD at 10/16/2024 5:38 PM EDT Associated attestation - Chelsy Lerner MD - 10/16/2024 5:38 PM EDT [facility] Medicine Attending Supervision Note Julien Gilbert was seen today on rounds with the resident physician. I personally interviewed and examined the patient. I reviewed the documentation by the resident and agree as documented unless otherwise stated below. Reason for today's visit: Acute kidney injury superimposed on CKD (CMS-HCC) Supplemental History / ROS R sided flank pain overnight, significant and did not improve with tylenol initially, was given 5mgoxycodone at that time. Had eventual relief of symptoms, but took some time. No pain at time of exam. Supplemental Exam: Gen - alert, no distress, chronically ill appearing Eyes - scleral icterus, but with EOMI ENT - moist mucosa Neck - supple CV - RRR, no MRG, significant 3+ edema to the upper thighs and abdomen, LLE>RLE. Lung - CTA, normal WOB Abd - Distended, minimal abdominal ttp on exam today Back - No CVAT. MSK - no clubbing, no cyanosis, no joint swelling, no muscle tenderness, LLE larger than RLE which is his baseline, tightening/erector spinae group spasm on R lower back, no step offs or bony ttp Skin - normal temp, jaundiced, xerosis Neuro - alert, oriented x 4, and answers questions appropriately. No facial asymmetry. Moves all four extremities Psych - normal mood, normal behavior, would like to be discharged as soon as able. Medical Decision Making: Severe exacerbation of chronic illness Acute or chronic illness that may pose threat to life or function Discussed with physician/SAWYER from another specialty or practice, other licensed professional (PT/OT/FLIGHT SURVEYOR/RT), or a non-medical community professional: Hepatology, Interventional Cardiology, Nephrology, PT/OT, SW Labs reviewed (1 pt each): CBC, Renal, Hepatic, PT/INR Test results reviewed (1 pt each): MRI Abdomen (awaiting full results) Review of notes from a different specialty or different practice: Hepatology, Nephrology Drug Tx requiring intensive monitoring (physiologic, electrolytes, renal function, drug levels, etc): bicarbonate gtt transition to PO, lactulose High risk of complications or morbidity related to diagnostics or treatments Assessment & Plan Julien Gilbert is a 39 y.o. male on hospital day 11. The medical issues being addressed in today's encounter are as follows: Principal Problem: Acute kidney injury superimposed on CKD (CMS-HCC) Active Problems: Decompensated cirrhosis (CMS-HCC) Metabolic encephalopathy Thrombocytopenia (CMS-HCC) Renal mass, left Metabolic acidosis with normal anion gap and bicarbonate losses GERD (gastroesophageal reflux disease) Anemia SBP (spontaneous bacterial peritonitis) (CMS-HCC) Neck pain with history of cervical spinal surgery #Decompensated Cirrhosis #Hepatic Encephalopathy #Esophageal Varices #Hepatorenal syndrome #Ascites requiring frequent Paracentesis #Transplant Evaluation MELD 3.0: 34 at 10/16/2024 6:31 AM Calculated from: Serum Creatinine: 3.2 mg/dL (Using max of 3 mg/dL) at 10/16/2024 6:31 AM Serum Sodium: 135 mmol/L at 10/16/2024 6:31 AM Total Bilirubin: 7.6 mg/dL at 10/16/2024 6:31 AM Serum Albumin: 3.4 g/dL at 10/16/2024 6:31 AM INR(ratio): 1.9 at 10/16/2024 6:31 AM Age at listing (hypothetical): 39 years Sex: Male at 10/16/2024 6:31 AM - Has already completed labs for transplant work up. Now also completed cardiac eval as of 10/14 withok coronaries. - Hepatology requesting psychiatry consult as next step in transplant eval - Psych consulted and switching patient from sertraline started yesterday to fluoxetine 20mg tomorrow - continue lactulose and rifaximin with goal of 3 BM per day #NADIYA on CKD Worsening Cr in setting of worsening liver disease. Suspect due to HRS. New baseline likely 2.5, improved slightly on repeat labs this AM. Showed evidence of anticipated contrast induced nephropathy after LHC on 10/14. - Repeat renal tomorrow AM to make sure not seeing worsening NADIYA - Nephrology consulted, appreciate recs. #R Sided Flank Pain - improved Suspect due to positioning during LHC on 10/14. [place] the worst in CVR, but has improved steadily since then after a brief spot dose. Will continue to monitor his pain, but improved at this time. #NAGMA - improved Improved on bicarb gtt, but likely due to worsening CKD in setting of HRS. - Transitioning back to oral bicarb #Spontaneous Bacterial Peritonitis - improved - S/p vanc then CTX course for SBP. - continue cipro ppx Remainder of plan per resident note. CHELSY LERNER MD Attending Physician Department of Internal Medicine 10/16/2024 5:36 PM * Lorena Kumar, RD - 10/16/2024 1:08 PM EDT [facility] Medical Nutrition Therapy Follow-Up Diet Order/Nutrition Support: Regular diet, Boost TID - Vanilla preference Pertinent Information: This is a 39 year old male history of ETOH cirrhosis d/b HE, ascites with SBP who is admitted for AMS. Precipitant of his HE likely SBP. Diagnostic paracentesis at OSH reportedly showed 61 nucleated cells, <2000 RBCs 10% Polynuclear, 90% [place] nuc. There were initial reports of gram + rods on fluid gram stain but this has also been reported as NGTD. Mental status improved after course of ceftriaxone. Patient completed work up for liver transplant. Anticipate listing himfor SLK next week. Planning to [place] home pending recommendations from renal given poor urine output and volume overload. Cdiff+ 09/09. Pt is on HD # 11. Majority of PO intake has been 100%. Ordering 1-2 meals daily per CBORD. Orders vanilla Boost. No GI symptoms noted other than distention. +BM 10/15. +lactulose, rifaximin. +Zinc sulfate, thiamin, folic acid. Will continue to monitor. Scheduled Meds: ciprofloxacin HCl 500 mg Oral Q24H folic acid 1 mg Oral Daily 0900 heparin 5,000 Units Subcutaneous 3 times per day lactulose 20 g Oral TID levothyroxine 75 mcg Oral QAM AC melatonin 6 mg Oral Daily with dinner methocarbamoL 500 mg Oral TID midodrine 10 mg Oral TID pantoprazole 40 mg Oral QAM AC rifAXIMin 550 mg Oral BID sertraline 50 mg Oral Daily 0900 sodium bicarbonate 1,300 mg Oral TID thiamine HCl 100 mg Oral Daily 0900 ursodioL 300 mg Oral BID zinc sulfate 220 mg Oral Daily 0900 Continuous Infusions: PRN Meds:acetaminophen, diphenhydrAMINE-zinc acetate, loratadine, metoprolol tartrate, ondansetron,oxyCODONE OR oxyCODONE Pertinent Labs: Lab Results Component Value Date CREATININE 3.20 (H) 10/16/2024 BUN 55 (H) 10/16/2024 NA 135 10/16/2024 K 3.7 10/16/2024 CL 106 10/16/2024 CO2 16 (L) 10/16/2024 Lab Results Component Value Date ALBUMIN 3.4 (L) 10/16/2024 ALBUMIN 3.4 (L) 10/16/2024 No results found for: PREALBUMIN Lab Results Component Value Date CALCIUM 8.5 (L) 10/16/2024 PHOS 4.2 10/16/2024 Lab Results Component Value Date MG 2.1 10/16/2024 No results found for: POCGMD Lab Results Component Value Date HGBA1C 3.7 (L) 10/08/2024 No results found for: CRP Weight History: Wt Readings from Last 5 Encounters: 10/10/24 (!) 263 lb 8 oz (119.5 kg) 09/05/24 (!) 262 lb 9.6 oz (119.1 kg) 09/02/24 (!) 258 lb (117 kg) 08/17/24 (!) 242 lb 11.2 oz (110.1 kg) 07/28/24 (!) 245 lb (111.1 kg) Established Estimated Nutrition Needs: Based on CBW of 119.5 kg Kcals/day: 1808-7657 (18-21 kcals/kg) Protein g/day: 119-143 (1-1.2 g/kg) Carbohydrates g/day: 45-55% of total calories Fluid ml/day: 1 ml/kcal or per MD *Needs based on clinical status at this time and subject to change. Established Nutrition Diagnosis Problem: Increased energy expenditure(PRO/KCALS) Etiology: increased metabolic demand Signs/Symptoms: cirrhosis Established Nutrition Intervention: Monitor PO Intake/Tolerance Established Goals: Total energy intake improved as evidenced by PO intake at least 75% of meals/supplements/snacks within 2-3 days Goals: Partially met- ongoing Nutrition Transition of Care Plan: Discharge plan of care for nutrition pending ongoing clinical course Follow up per protocol while inpatient. Additional Recommendation(s) to Physicians: No New Recommendations: Continue ONS Continue to monitor and encourage PO intake Continue to monitor weight, labs, and POC Lorena Kumar RD, LD Clinical Dietitian Contact via qunb * Jerad Hughes MD - 10/16/2024 11:03 AM EDT [facility] HEPATOLOGY PROGRESS NOTE Name: Julien Gilbert CSN: [id number] Consulted by: Chelsy Lerner MD Reason for Consult: Decompensated Cirrhosis History of Present Illness: Julien Gilbert is a 39 y.o. 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 Interval History -Patient is alert and oriented today - Remains inpatient due to ongoing renal injury, not making urine and is volume overloaded Review of Systems -all systems reviewed; negative unless stated above Past Medical History: Diagnosis Date Alcoholic cirrhosis of liver (CMS-HCC) Esophageal varices (CMS-HCC) Hepatorenal syndrome (CMS-HCC) Hypertension Other hyperlipidemia 07/26/2024 Renal cell carcinoma (CMS-HCC) Thrombocytopenia (CMS-HCC) Thyroid disease Past Surgical History: Procedure Laterality Date ESOPHAGOGASTRODUODENOSCOPY N/A 10/10/2024 Procedure: EGD; Surgeon: Lino Soto MD; Location: ENDOSCOPY; Service: Gastroenterology; Laterality: N/A; LEFT HEART CATH N/A 10/14/2024 Procedure: Left Heart Cath; Surgeon: Irving Matta MD; Location: CARDIAC CATH LABS; Service:Cath; Laterality: N/A; History reviewed. No pertinent family history. Social History Tobacco Use Smoking status: Former Types: Cigarettes Smokeless tobacco: Current Substance Use Topics Alcohol use: Yes Comment: History of alcohol abuse, reports no use in 3 week- typically endorses use as 4 glasses ofwine a days Allergies[1] Scheduled Meds: ciprofloxacin HCl 500 mg Oral Q24H folic acid 1 mg Oral Daily 0900 heparin 5,000 Units Subcutaneous 3 times per day lactulose 20 g Oral TID levothyroxine 75 mcg Oral QAM AC melatonin 6 mg Oral Daily with dinner methocarbamoL 500 mg Oral TID midodrine 10 mg Oral TID pantoprazole 40 mg Oral QAM AC rifAXIMin 550 mg Oral BID sertraline 50 mg Oral Daily 0900 sodium bicarbonate 1,300 mg Oral TID thiamine HCl 100 mg Oral Daily 0900 ursodioL 300 mg Oral BID zinc sulfate 220 mg Oral Daily 0900 Continuous Infusions: PRN Meds: acetaminophen, diphenhydrAMINE-zinc acetate, loratadine, metoprolol tartrate, ondansetron, oxyCODONE OR oxyCODONE Prior to Admission Meds: Home Medications Medication Sig Taking? Last Dose ciprofloxacin HCl (CIPRO) 500 MG tablet Take 1 tablet (500 mg total) by mouth daily. Yes Past Week folic acid (FOLVITE) 1 MG tablet Take 1 tablet (1 mg total) by mouth daily. Yes Past Week lactulose (CHRONULAC) 10 gram/15 mL solution Take 30 mLs (20 g total) by mouth 3 times a day as needed (goal 2-3 bowel movements a day). Yes 10/05/2024 Morning levothyroxine (SYNTHROID) 75 MCG tablet Take 1 tablet (75 mcg total) by mouth every morning before breakfast. Yes 10/05/2024 pantoprazole (PROTONIX) 40 MG tablet Take 1 tablet (40 mg total) by mouth every morning before breakfast. Yes Past Week potassium chloride (KLOR-CON M20) 20 MEQ tablet Take 2 tablets (40 mEq total) by mouth daily. Yes Past Week rifAXIMin (XIFAXAN) 550 mg Tab tablet Take 1 tablet (550 mg total) by mouth 2 times a day. Yes 10/05/2024 Morning sodium bicarbonate 650 MG tablet Take 2 tablets (1,300 mg total) by mouth 3 times a day. Yes 10/05/2024 Morning thiamine HCl (VITAMIN B-1) 100 MG tablet Take 1 tablet (100 mg total) by mouth daily. Yes Past Week traMADoL (ULTRAM) 50 mg tablet Take 1 tablet (50 mg total) by mouth every 12 hours as needed for Pain (Pain). Yes Past Week ursodioL (ACTIGALL) 300 mg capsule Take 1 capsule (300 mg total) by mouth 2 times a day. Yes 10/05/2024 Morning zinc sulfate (ZINCATE) 50 mg zinc (220 mg) capsule Take 1 capsule (220 mg total) by mouth daily. Yes Past Week Vitals: Temp: [97.5 ??F (36.4 ??C)-97.8 ??F (36.6 ??C)] 97.5 ??F (36.4 ??C) Heart Rate: [80-93] 89 Resp: [14-20] 20 BP: (92-124)/(36-62) 108/62 Intake/Output Summary (Last 24 hours) at 10/16/2024 1103 Last data filed at 10/16/2024 0633 Gross per 24 hour Intake 480 ml Output -- Net 480 ml Physical Exam Gen: No acute distress. Resting in bed. HEENT:. + scleral icterus. CV: Regular rate and rhythm. Lungs:Comfortable on RA Abdomen: Soft, nontender, distended Skin: jaundiced Neuro: Alert. No focal deficits. No asterixis Psych: Appropriate mood and affect. Laboratory: Lab Results Component Value Date WBC 5.8 10/16/2024 HGB 7.7 (L) 10/16/2024 HCT 22.1 (L) 10/16/2024 MCV 102.3 (H) 10/16/2024 PLT 43 (L) 10/16/2024 Lab Results Component Value Date NA 135 10/16/2024 K 3.7 10/16/2024 CL 106 10/16/2024 CO2 16 (L) 10/16/2024 BUN 55 (H) 10/16/2024 CREATININE 3.20 (H) 10/16/2024 GLUCOSE 121 (H) 10/16/2024 CALCIUM 8.5 (L) 10/16/2024 PHOS 4.2 10/16/2024 Lab Results Component Value Date AST 45 (H) 10/16/2024 ALT 23 10/16/2024 BILITOT 7.6 (H) 10/16/2024 BILIDIRECT 3.97 (H) 10/16/2024 PROT 5.1 (L) 10/16/2024 ALBUMIN 3.4 (L) 10/16/2024 ALBUMIN 3.4 (L) 10/16/2024 ALKPHOS 137 (H) 10/16/2024 Lab Results Component Value Date INR 1.9 (H) 10/16/2024 Lab Results Component Value Date HEPAIGM Nonreactive 10/07/2024 HEPBIGM Nonreactive 09/03/2024 Microbiology: Lab Results Component Value Date LABGRAM Cytospin Results: 10/10/2024 LABGRAM Polymorphonuclear Leukocytes Seen; 10/10/2024 LABGRAM No Organisms Seen; 10/10/2024 MELD 3.0: 34 at 10/16/2024 6:31 AM Calculated from: Serum Creatinine: 3.2 mg/dL (Using max of 3 mg/dL) at 10/16/2024 6:31 AM Serum Sodium: 135 mmol/L at 10/16/2024 6:31 AM Total Bilirubin: 7.6 mg/dL at 10/16/2024 6:31 AM Serum Albumin: 3.4 g/dL at 10/16/2024 6:31 AM INR(ratio): 1.9 at 10/16/2024 6:31 AM Age at listing (hypothetical): 39 years Sex: Male at 10/16/2024 6:31 AM Assessment/Plan: This is a 39 year old male history of ETOH cirrhosis d/b HE, ascites with SBP who is admitted for AMS. Precipitant of his HE likely SBP. Diagnostic paracentesis at OSH reportedly showed 61 nucleated cells, <2000 RBCs 10% Polynuclear, 90% [place] nuc. There were initial reports of gram + rods on fluid gram stain but this has also been reported as NGTD. Mental status improved after course of ceftriaxone. Patient completed work up for liver transplant. Anticipate listing him for SLK next week. Planning to [place] home pending recommendations from renal given poor urine output and volume overload. Plan/Recommendation # HE # Hx of SBP -Improved with course of CTX for bacterascites. - continue cipro for secondary prophylaxis -continue rifaximin, Zinc, and lactulose; titrate to 3 bowel movements daily # NADIYA on CKD -Most likely 2/2 to HRS-NADIYA . - Cr stabilized, liklely new baseline. - If GFR < 30 until 10/22 will qualify for SLK -#Ascites -PRN paracentesis - Low Na diet #Varices- -history of bleeding gastric Evs s/p coliing in 06/2022. EGD 10/09 - PHG, medium sized Evs (no band). Not BB tolerant. # History of RCC s/p cryoablation # Indeterminate liver lesion on outside CT # Indeterminate Renal lesion on outside CT - OSH CT A/P with iso-attenuating round nodular outpouching in inf R lobe measuring 3.6 x 3.8cm. Also exophytic renal mass. - AFP WNL - MRI to evaluate liver and kidney lesions complete, no concerning lesions identified #Transplant: -patient has completed 8/12 weeks CD treatment required to be considered for transplant. Plans amenable to completing treatment post transplant. - History of anxiety/ PTSD . Psych evaluating patient this morning to make recommendations on medical management of this. -discussed at transplant selection meeting and inpatient transplant eval is completed. - Patient will qualify for SLK if eGFR remains <30 until October 22. Anticipate listing him at that time Patient seen and discussed with the attending physician, Dr Sidhu. Recommendations are final following attestation JERAD HUGHES MD PGY-5 10/16/2024, 11:03 AM [1] Allergies Allergen Reactions Adhesive Itching and Rash Tegaderm adhesive on Ivs, pt states its tolerable Duloxetine Other (See Comments) Became Manic Cosigned by Chinedu Sidhu MD at 10/18/2024 1:22 PM EDT Associated attestation - Chinedu Sidhu MD - 10/18/2024 1:22 PM EDT I saw and examined the patient. I discussed with the resident or fellow and agree with resident's/fellow's findings and plan as documented in the note. Copied / pasted information was reviewed and confirmed to be accurate. For ROS, please see resident /fellow note, but all other ROS reviewed and negative. Please also see below. Patient seen and examined on 10/16/2024. Briefly, 39-year-old gentleman with decompensated cirrhosis secondary to alcohol with MELD of 34 admitted for altered mental status. His liver disease has been decompensated by hepatic encephalopathy, ascites, SBP. He is undergoing evaluation for liver transplantation. Also history of RCC status post cryoablation. Patient with known cirrhosis with continued alcohol use. He is sober now since July 2024.He is undergoing chemical dependency treatment and has completed 8 of planned 12 weeks. Completed course of ceftriaxone for bacterial ascites and now on Cipro. HE is controlled. Creatinine is near 3.MRI with no liver lesions, ablated left renal lesion without recurrence. Left heart cath with no evidence of obstructive coronary disease. 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 He has now improved and undergoing liver transplant evaluation. - Daily MELD labs - Cipro for secondary prophylaxis of SBP - As needed paracentesis. Low-sodium diet - Continue lactulose, rifaximin, and zinc - MRI with no liver lesions and treated RCC without recurrence - Undergoing transplant evaluation with plan for completion of chemical dependency treatment as outpatient. - [facility] with no obstructive coronary disease - Psych eval for PTSD With recommendation of sertraline - Given his renal dysfunction, will plan to list for SLK when he qualifies on 10/22/2024. - Will follow Bobby Sidhu MD Transplant Family Preservation Worker Please see the body of the resident, [...] reviewed independently any interval liver pathology. * Jeremiah Gamino MD - 10/15/2024 1:03 PM EDT Images from the original note were not included. Department of Internal Medicine Nephrology & Hypertension Progress note Patient: Julien Gilbert Date of Admit: 10/05/2024 Referring physician: Chelsy Lerner MD Summary Julien Gilbert is 39 y.o. male with liver cirrhosis, and NADIYA. AMS improved. Transplant evaluation for OLT ongoing. To be eligible for kidney txp- GFR remains <30 until October 22. Waiting for [facility] today. ASSESSMENT NADIYA on CKD, last discharge creatinine 2.4 Baseline Creatinine 1.2-1.3, HRS- NADIYA as no response to holding lasix and albumin UA bland Urine lytes <10/< 15/ 50 Renal Function: Recent Labs 10/15/24 0608 10/14/24 0253 10/13/24 0535 BUN 55* 55* 54* CREATININE 2.88* 3.01* 2.99* Electrolytes: Na: 135 K: 3.4 Cl: 107 Alb: 3.2; 3.2 Ma.8 Ca: 8.4 Phos: 3.9 Acid Base Status: Anion Gap: 11 Bicarb: 17 Hypertension/CVS: BP: 115/53 Mineral Bone Disease: Ca: 8.4 PO4: 3.9 PTH: No results found for requested labs within last 3600 days. on No results found for requested labs within last 3600 days. Vit D: 7.1 on 10/08/2024 Anemia of CKD: Hgb 7.1 Iron 81 on 10/08/2024 Ferritin 706.9 on 10/08/2024 TIBC: SEE COMMENT on 10/08/2024 Iron%- Iron replete PLAN -[facility] yesterday- patient remains at risk of contrast related injury on top of exisiting NADIYA for 24-48 hrs after contrast load. -He is volume overloaded -patient needs to follow up closely with nephrology after discharge Thank you for allowing us to participate in this patient's care. Discussed with Consult Staff. Jeremiah Gamino PGY4 Nephrology. Pager no. [phone] Chief Complaint No chief complaint on file. Reason for Consult NADIYA History of Present Illness Julien Gilbert is a 39 y.o. y/o male with alcoholic cirrhosis, on twice weekly paracentesis, hepatic encephalopathy, esophageal varices, presented with AMS- SBP resolved after treatment. S/p albumin x 3 Worsening creatinine - hence nephrology was consulted Histories he has a past medical history of Alcoholic cirrhosis of liver (CMS-HCC), Esophageal varices (CMS-HCC), Hepatorenal syndrome (CMS-HCC), Hypertension, Other hyperlipidemia (07/26/2024), Renal cell carcinoma (CMS-HCC), Thrombocytopenia (CMS-HCC), and Thyroid disease. he has a past surgical history that includes Esophagogastroduodenoscopy (N/A, 10/10/2024). he family history is not on file. he reports that he has quit smoking. His smoking use included cigarettes. He uses smokeless tobacco. He reports current alcohol use. He reports current drug use. Drug: Marijuana. Allergies[1] Medications- reviewed Physical Exam Constitutional: Normal appearance. HENT: Head: Normocephalic and atraumatic. Nose: Nose normal. Eyes: Pupils: Pupils are equal, round, and reactive to light. Cardiovascular- Pulses: Normal pulses. Heart sounds: Normal heart sounds. Pulmonary: Breath sounds: Normal breath sounds. Abdominal: Palpations: Abdomen is soft. Musculoskeletal: General: Normal range of motion. SkinGeneral: Skin is warm and dry. Neurological: No focal deficit present. Mental Status: alert and oriented to person, place, and time. Psychiatric: Behavior: Behavior normal. In addition to the above an extensive amount of complex data in the patients lab and chart were reviewed. Diagnostic Imaging Reviewed in EMR. [1] Allergies Allergen Reactions Adhesive Itching and Rash Tegaderm adhesive on Ivs, pt states its tolerable Duloxetine Other (See Comments) Became Manic Cosigned by Dwayne Paez MD at 10/15/2024 6:28 PM EDT Associated attestation - Dwayne Paez MD - 10/15/2024 6:28 PM EDT I saw and examined the patient. I discussed with the resident or fellow and agree with Dr. Gamino's findings and plan as documented in the note. Patient had left heart catheterization. Coronary arteries patent. Unfortunately urine output has dwindled as expected. Creatinine is about the same around 2.88 patient is grossly volume overloaded We are hoping his creatinine will remain stable and optimize his volume management with close follow-up in the outpatient nephrology clinic. Noted criteria for SLK if the GFR below remains 30. Dwayne Paez MD, This note was completely [...] evaluation and management for this patient. * William Blount MD - 10/15/2024 10:49 AM EDT Department of Internal Medicine Daily Progress Note Chief Complaint / Reason for Follow-Up Julien Gilbert is a 39 y.o. male on hospital day 10. The principal reason for today's follow up visitis Acute kidney injury superimposed on CKD (CMS-HCC). NAEON. Pt's LHC yesterday without concern for severe coronary artery disease. R radial entry site is clean, dry, and hemostatic. Pt states he has increased neck pain - expressed understanding when wediscussed current regimen and goal for balancing adequate intestinal motility with adequate pain control. Pt's father at bedside during rounds. Pt is A&O x4. No chest pain, no fevers or chills, no shortness of breath. No acute abdominal pain. Review of Systems (Focused) Review of systems negative except as noted above. Medications Scheduled Meds: ciprofloxacin HCl 500 mg Oral Q24H folic acid 1 mg Oral Daily 0900 heparin 5,000 Units Subcutaneous 3 times per day lactulose 20 g Oral TID levothyroxine 75 mcg Oral QAM AC melatonin 6 mg Oral Daily with dinner methocarbamoL 500 mg Oral TID midodrine 10 mg Oral TID pantoprazole 40 mg Oral QAM AC rifAXIMin 550 mg Oral BID sodium bicarbonate 1,300 mg Oral TID thiamine HCl 100 mg Oral Daily 0900 ursodioL 300 mg Oral BID zinc sulfate 220 mg Oral Daily 0900 Continuous Infusions: PRN Meds: acetaminophen, diphenhydrAMINE-zinc acetate, loratadine, metoprolol tartrate, ondansetron, oxyCODONE OR oxyCODONE Vital Signs Temp: [97.3 ??F (36.3 ??C)-98.1 ??F (36.7 ??C)] 98 ??F (36.7 ??C) Heart Rate: [75-110] 85 Resp: [10-20] 16 BP: (89-126)/(43-70) 91/43 Intake/Output Summary (Last 24 hours) at 10/15/2024 1049 Last data filed at 10/14/2024 1356 Gross per 24 hour Intake 205 ml Output -- Net 205 ml Physical Exam Physical Exam Constitutional: Appearance: He is ill-appearing. He is not diaphoretic. HENT: Head: Normocephalic and atraumatic. Mouth/Throat: Mouth: Mucous membranes are moist. Pharynx: Oropharynx is clear. Eyes: General: Scleral icterus present. Extraocular Movements: Extraocular movements intact. Cardiovascular: Rate and Rhythm: Normal rate and regular rhythm. Pulses: Normal pulses. Pulmonary: Effort: Pulmonary effort is normal. Breath sounds: Normal breath sounds. Abdominal: General: There is distension. Tenderness: There is abdominal tenderness. Musculoskeletal: Cervical back: Tenderness present. Right lower leg: Edema present. Left lower leg: Edema (pt states LLE typically larger; no pain, warmth, or redness appreciated on exam) present. Comments: 2+ edema on R 3+ edema on L Skin: General: Skin is dry. Coloration: Skin is jaundiced. Neurological: General: No focal deficit present. Mental Status: He is alert and oriented to person, place, and time. Cranial Nerves: Cranial nerves 2-12 are intact. No cranial nerve deficit. Motor: No weakness. Psychiatric: Mood and Affect: Mood normal. Behavior: Behavior normal. Thought Content: Thought content normal. Cognition and Memory: Cognition normal. Laboratory Data CBC 10/15/2024 \ 7.1 / 4.6 \ / 34 / \ / 19.6 \ Differential 09/16/2024 N 84.2 L 8.0 M 5.1 E 1.5 B 0.7 Renal 10/15/2024 135 107 55 / ___ __ / 125 \ 3.4 17 2.88 \ Ca 8.4 (10/15/2024) Mg 1.8 (10/15/2024) Phos 3.9 (10/15/2024) Lipids Lab Results Component Value Date CHOLTOT <25 10/07/2024 TRIG 30 10/07/2024 HDL 4 (L) 10/07/2024 LDL See Note 10/07/2024 LFTs 10/15/2024 \ 7.1 / \ 3.77 / 39 \ / 22 / \ / 115 \ PT/INR/PTT - 10/15/2024 PT 21.6 INR 1.8 PTT No results found for requested labs within last 3600 days. Invalid input(s): WBCCAST , GRANCAST MELD 3.0: 33 at 10/15/2024 6:08 AM Calculated from: Serum Creatinine: 2.88 mg/dL at 10/15/2024 6:08 AM Serum Sodium: 135 mmol/L at 10/15/2024 6:08 AM Total Bilirubin: 7.1 mg/dL at 10/15/2024 6:08 AM Serum Albumin: 3.2 g/dL at 10/15/2024 6:08 AM INR(ratio): 1.8 at 10/15/2024 6:08 AM Age at listing (hypothetical): 39 years Sex: Male at 10/15/2024 6:08 AM No results found for: NTPROBNP Lab Results Component Value Date TSH 0.81 10/07/2024 FREET4 0.74 09/03/2024 Diagnostic Studies MRI Abdomen W and WO contrast Final Result IMPRESSION: 1. Cirrhosis and sequela of portal hypertension including large volume ascites, splenomegaly, and varices. No suspicious hepatic lesions. 2. Thickening/edema of the stomach, small bowel, and colon, likely related to portal hypertension. 3. Ablated left renal lesion without evidence of local recurrence. Report Verified by: Alberto Rodriguez MD at 10/14/2024 12:02 PM EDT X-ray Mandible minimum 4-views Final Result IMPRESSION: 1. No acute osseous abnormality. Report Verified by: Diana Devlin MD at 10/08/2024 1:12 PM EDT US Duplex [id number] Comp Final Result IMPRESSION: ABDOMEN 1. Cirrhotic liver morphology. No suspicious hepatic lesion. 2. Moderate volume of ascites. 3. Splenomegaly. LIVER DOPPLER 1. Patent hepatic vasculature with normal directional flow. 2. Recanalized umbilical vein as a sequela of portal hypertension, with multiple venous collateralsbordering the falciform ligament. Findings similar to prior. Report Verified by: Alberto Rodriguez MD at 10/07/2024 4:26 PM EDT US Abdomen Complete Final Result IMPRESSION: ABDOMEN 1. Cirrhotic liver morphology. No suspicious hepatic lesion. 2. Moderate volume of ascites. 3. Splenomegaly. LIVER DOPPLER 1. Patent hepatic vasculature with normal directional flow. 2. Recanalized umbilical vein as a sequela of portal hypertension, with multiple venous collateralsbordering the falciform ligament. Findings similar to prior. Report Verified by: Alberto Rodriguez MD at 10/07/2024 4:[address] Head WO contrast Final Result IMPRESSION: 1. No acute intracranial abnormality. 2. No intracranial mass effect or hemorrhage. Report Verified by: Sher Abrams MD at 10/06/2024 4:50 PM EDT X-ray Portable Chest Final Result IMPRESSION: Negative portable chest. Report Verified by: Eduardo Franks MD at 10/06/2024 2:33 AM EDT DXA bone density axial skeleton (Results Pending) Assessment & Plan Julien Gilbert is a 39 y.o. male on HD# 10 with Acute kidney injury superimposed on CKD (CMS-HCC). The medical issues being addressed in today's encounter are as follows: Principal Problem: Acute kidney injury superimposed on CKD (CMS-HCC) Active Problems: Decompensated cirrhosis (CMS-HCC) Metabolic encephalopathy Thrombocytopenia (CMS-HCC) Renal mass, left Metabolic acidosis with normal anion gap and bicarbonate losses GERD (gastroesophageal reflux disease) Anemia SBP (spontaneous bacterial peritonitis) (CMS-HCC) Neck pain with history of cervical spinal surgery #Encephalopathy, improved Pt noted to have waxing and waning encephalopathy at home over the last few days, initially suspected to be hyperammonemia by and patient, somewhat improved initially with lactulose; however encephalopathy subsequently worsened again. Notably, pt has a history of decompensated cirrhosis episodes including HRS and hepatic encephalopathy. Currently maintain high suspicion for toxic/metabolic encephalopathy in the setting of possible decompensated alcoholic cirrhosis. Continued to have diarrheal episodes despite completion of oral vancomycin for recent C. Diff. OSH labs with low bicarb to 17 and normal lactate, so will give consideration to ongoing C. Diff. Vanc and CTX discontinued following negative growth from ascites fluid. - Ammonia level 10/06: 77 within normal range - Ethanol level, Tylenol level. Salicylate level 10/06: All Low, no concern for toxin-induced etiology at this time. - PETH labs - negative - COVID/Flu/RSV(-) - UA, Blood Cx 10/07: No growth to date - Continue home lactulose and rifaximin - Follow up OSH paracentesis studies, will continue CTX until report communicated -Report showed growth of Gram + rods, pt started on IV Vancomycin -10/10: GI able to connect with OSH lab this AM who stated that no growth from ascites. Vanc dced on10/10. CTX DCed after 10/11 dose. - Continue Cipro 500mg daily for SBP Prophylaxis #Decompensated Alcoholic Cirrhosis #Transplant evaluation Pt abdomen non-acute. Does appear significantly jaundiced with scleral icterus. Bedside paracentesis performed at OSH. Concern for possible SBP but reassured by lack of fever and hemodynamically stable status. - MELD labs Daily - Continue home Cipro prophylaxis for SBP - Continue home Zinc - Continue home ursodiol - Hepatology consult placed, appreciate recs EGD on 10/09 - s/p 3 days of Albumin infusion -Pt did not tolerate Stress ECHO on 10/09 - LHC today -Per GI recs, started on midodrine 10mg TID -Triphasic MRI #Anemia Hgb 6.9 on 10/08. Likely dilutional due to albumin treatment. S/p 1u pRBCs - CTM #NAGMA, resolved Pt found to have a pH of 7.21 upon admission to , with a HCO3 18 and pCO2 41. Pt is Rx Bicarb tablets at home and has a known history of CKD. pH was improved 7.27 later in the morning. NAGMA likely due to GI loss due to lactulose and diuresis. -Continue home oral Bicarb #SBP Previously was previously on Cipro for SBP prophylaxis. Pt started on 2g of IV CTX at admission.. -Outside results obtained on 10/07 showed growth of Gram+ rods from most recent therapeutic paracentesis. 10/07: Started on IV Vancomycin based on results from outside facility. Ultimately cultures NGTD. Was transitioned back to home cipro ppx. - continue cipro 500 daily for SBP prophylaxis #Aphasia (resolved) Patient appears to be unable to name objects when asked, but can readily follow commands. Additionally, pt is unable to verbally answer orientation questions. Authors was able to see pt is frustratedin his inability to verbally communicate. It appears that this waxes and wanes and could be attributed to his encephalopathy, though patient has never presented with this symptom and no head imaging has been performed at [facility]. -CT Head w/o contrast -Imaging showed no concern for acute etiology of aphasia. -Will CTM, most likely due to metabolic/toxic encephalopathy #H/o GI Bleed Pt with history of GI bleed in setting of gastric varices, for which IR at OSH had to place 17 coils. 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 - Has previously been on beta blockade for variceal prevention, but did not tolerate beta dominic due to hypotension. - s/p EGD 10/09 #Non-Oliguric NADIYA on CKD Patient noted on OSH labs to have creatinine of 3.6. Baseline creatinine appears to range 2.5-2.9. Per , pt makes urine and has never required dialysis. Pt is s/p LHC (given contrast) - Repeat renal panel to monitor post-contrast renal function - Continue home bicarb tablets - Nephro consult, appreciate recs - Holding home diuretics - Strict I/O's - Workup for Kidney transplant to run concurrently with Liver transplant #h/o Left Sided RCC s/p cryoablation Cryoablation was done 2022. On CT A/P at OSH, pt noted to have persistent L sided exophytic renal mass. -renal consults and Renal Transplant team is following. Workup for Kidney transplant to run concurrently with eval for liver transplant #Hepatic Lesion of Unknown etiology OSH CT A/P with iso-attenuating round nodular outpouching in inf R lobe measuring 3.6 x 3.8cm. Differential to include cyst vs metastatic RCC vs primary hepatic tumor - Hepatology consult, appreciate recs - Consider MRI inpatient -Triphasic MRI #History of AUD - Continue home thiamine repletion - PETH and ETOH level as above #History of Cervical Fusion #Neck Pain -PRN Oxy Pain Meds -Robaxin TID #GERD - continue home protonix #HTN - holding home meds in setting of hypotension; pt currently on midodrine 10mg TID #HLD #Hypothyroidism - continue home synthroid Nutrition: Diet/Nutrition Orders Diet Regular(7) Frequency: Effective Now Number of Occurrences: Until Specified Order Questions: Suicide/Behavior Risk Modification? No Dietary nutrition supplements Frequency: TID Number of Occurrences: Until Specified Order Comments: Vanilla boost Order Questions: Select Supplement: Boost-1 kcal/ml supplement ([facility] only) Code Status: Full Code Signed: WILLIAM BLOUNT MD 10/15/2024, 10:49 AM Cosigned by Chelsy Lerner MD at 10/15/2024 2:47 PM EDT Associated attestation - Chelsy Lerner MD - 10/15/2024 2:47 PM EDT [facility] Medicine Attending Supervision Note Julien Gilbert was seen today on rounds with the resident physician. I personally interviewed and examined the patient. I reviewed the documentation by the resident and agree as documented unless otherwise stated below. Reason for today's visit: Acute kidney injury superimposed on CKD (CMS-HCC) Supplemental History / ROS R sided flank pain overnight, significant and did not improve with tylenol initially, was given 5mgoxycodone at that time. Had eventual relief of symptoms, but took some time. No pain at time of exam. Supplemental Exam: Gen - alert, no distress, chronically ill appearing Eyes - scleral icterus, but with EOMI ENT - moist mucosa Neck - supple CV - RRR, no MRG, significant 3+ edema to the upper thighs and abdomen, LLE>RLE. Lung - CTA, normal WOB Abd - Distended, minimal abdominal ttp on exam today Back - No CVAT. MSK - no clubbing, no cyanosis, no joint swelling, no muscle tenderness, LLE larger than RLE which is his baseline, tightening/erector spinae group spasm on R lower back, no step offs or bony ttp Skin - normal temp, jaundiced, xerosis Neuro - alert, oriented x 4, and answers questions appropriately. No facial asymmetry. Moves all four extremities Psych - normal mood, normal behavior, would like to be discharged as soon as able. Medical Decision Making: Severe exacerbation of chronic illness Acute or chronic illness that may pose threat to life or function Discussed with physician/SAWYER from another specialty or practice, other licensed professional (PT/OT/FLIGHT SURVEYOR/RT), or a non-medical community professional: Hepatology, Interventional Cardiology, Nephrology, PT/OT, SW Labs reviewed (1 pt each): CBC, Renal, Hepatic, PT/INR Test results reviewed (1 pt each): MRI Abdomen (awaiting full results) Review of notes from a different specialty or different practice: Hepatology, Nephrology Drug Tx requiring intensive monitoring (physiologic, electrolytes, renal function, drug levels, etc): bicarbonate gtt transition to PO, lactulose High risk of complications or morbidity related to diagnostics or treatments Assessment & Plan Julien Gilbert is a 39 y.o. male on hospital day 10. The medical issues being addressed in today's encounter are as follows: Principal Problem: Acute kidney injury superimposed on CKD (CMS-HCC) Active Problems: Decompensated cirrhosis (CMS-HCC) Metabolic encephalopathy Thrombocytopenia (CMS-HCC) Renal mass, left Metabolic acidosis with normal anion gap and bicarbonate losses GERD (gastroesophageal reflux disease) Anemia SBP (spontaneous bacterial peritonitis) (CMS-HCC) Neck pain with history of cervical spinal surgery #Decompensated Cirrhosis #Hepatic Encephalopathy #Esophageal Varices #Hepatorenal syndrome #Ascites requiring frequent Paracentesis #Transplant Evaluation MELD 3.0: 33 at 10/15/2024 6:08 AM Calculated from: Serum Creatinine: 2.88 mg/dL at 10/15/2024 6:08 AM Serum Sodium: 135 mmol/L at 10/15/2024 6:08 AM Total Bilirubin: 7.1 mg/dL at 10/15/2024 6:08 AM Serum Albumin: 3.2 g/dL at 10/15/2024 6:08 AM INR(ratio): 1.8 at 10/15/2024 6:08 AM Age at listing (hypothetical): 39 years Sex: Male at 10/15/2024 6:08 AM - Has already completed labs for transplant work up. Now also completed cardiac eval as of 10/14 withok coronaries. - Hepatology requesting psychiatry consult as next step in transplant eval. - continue lactulose and rifaximin with goal of 3 BM per day #NADIYA on CKD Worsening Cr in setting of worsening liver disease. Suspect due to HRS. New baseline likely 2.5, improved slightly on repeat labs this AM. Watching for potential contrast induced nephropathy after LHC on 10/14. - Repeat renal tomorrow AM to make sure not seeing worsening NADIYA - Nephrology consulted, appreciate recs. #R Sided Flank Pain Suspect due to positioning during LHC on 10/14. [place] the worst in CVR, but has improved steadily since then after a brief spot dose. Will continue to monitor his pain, but improved at this time. #NAGMA - improved Improved on bicarb gtt, but likely due to worsening CKD in setting of HRS. - Transitioning back to oral bicarb #Spontaneous Bacterial Peritonitis - improved - S/p vanc then CTX course for SBP. - continue cipro ppx Remainder of plan per resident note. CHELSY LERNER MD Attending Physician Department of Internal Medicine 10/15/2024 2:36 PM * Jerad Hughes MD - 10/15/2024 10:15 AM EDT [facility] PROGRESS NOTE Name: Julien Gilbert CSN: [id number] Consulted by: Chelsy Lerner MD Reason for Consult: Decompensated Cirrhosis History of Present Illness: Julien Gilbert is a 39 y.o. 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 Interval History -Patient is alert and oriented today - LHC performed yesterday, no obstructive coronary disease noted. - Psych evaluating patient this morning - Patient hopeful to DC today Review of Systems -all systems reviewed; negative unless stated above Past Medical History: Diagnosis Date Alcoholic cirrhosis of liver (CMS-HCC) Esophageal varices (CMS-HCC) Hepatorenal syndrome (CMS-HCC) Hypertension Other hyperlipidemia 07/26/2024 Renal cell carcinoma (CMS-HCC) Thrombocytopenia (CMS-HCC) Thyroid disease Past Surgical History: Procedure Laterality Date ESOPHAGOGASTRODUODENOSCOPY N/A 10/10/2024 Procedure: EGD; Surgeon: Lino Soto MD; Location: ENDOSCOPY; Service: Gastroenterology; Laterality: N/A; History reviewed. No pertinent family history. Social History Tobacco Use Smoking status: Former Types: Cigarettes Smokeless tobacco: Current Substance Use Topics Alcohol use: Yes Comment: History of alcohol abuse, reports no use in 3 week- typically endorses use as 4 glasses ofwine a days Allergies[1] Scheduled Meds: ciprofloxacin HCl 500 mg Oral Q24H folic acid 1 mg Oral Daily 0900 heparin 5,000 Units Subcutaneous 3 times per day lactulose 20 g Oral TID levothyroxine 75 mcg Oral QAM AC magnesium sulfate in sterile water 50 mL 2 g Intravenous Once melatonin 6 mg Oral Daily with dinner methocarbamoL 500 mg Oral TID midodrine 10 mg Oral TID pantoprazole 40 mg Oral QAM AC rifAXIMin 550 mg Oral BID sodium bicarbonate 1,300 mg Oral TID thiamine HCl 100 mg Oral Daily 0900 ursodioL 300 mg Oral BID zinc sulfate 220 mg Oral Daily 0900 Continuous Infusions: PRN Meds: acetaminophen, diphenhydrAMINE-zinc acetate, loratadine, metoprolol tartrate, ondansetron, oxyCODONE OR oxyCODONE Prior to Admission Meds: Home Medications Medication Sig Taking? Last Dose ciprofloxacin HCl (CIPRO) 500 MG tablet Take 1 tablet (500 mg total) by mouth daily. Yes Past Week folic acid (FOLVITE) 1 MG tablet Take 1 tablet (1 mg total) by mouth daily. Yes Past Week lactulose (CHRONULAC) 10 gram/15 mL solution Take 30 mLs (20 g total) by mouth 3 times a day as needed (goal 2-3 bowel movements a day). Yes 10/05/2024 Morning levothyroxine (SYNTHROID) 75 MCG tablet Take 1 tablet (75 mcg total) by mouth every morning before breakfast. Yes 10/05/2024 pantoprazole (PROTONIX) 40 MG tablet Take 1 tablet (40 mg total) by mouth every morning before breakfast. Yes Past Week potassium chloride (KLOR-CON M20) 20 MEQ tablet Take 2 tablets (40 mEq total) by mouth daily. Yes Past Week rifAXIMin (XIFAXAN) 550 mg Tab tablet Take 1 tablet (550 mg total) by mouth 2 times a day. Yes 10/05/2024 Morning sodium bicarbonate 650 MG tablet Take 2 tablets (1,300 mg total) by mouth 3 times a day. Yes 10/05/2024 Morning thiamine HCl (VITAMIN B-1) 100 MG tablet Take 1 tablet (100 mg total) by mouth daily. Yes Past Week traMADoL (ULTRAM) 50 mg tablet Take 1 tablet (50 mg total) by mouth every 12 hours as needed for Pain (Pain). Yes Past Week ursodioL (ACTIGALL) 300 mg capsule Take 1 capsule (300 mg total) by mouth 2 times a day. Yes 10/05/2024 Morning zinc sulfate (ZINCATE) 50 mg zinc (220 mg) capsule Take 1 capsule (220 mg total) by mouth daily. Yes Past Week Vitals: Temp: [97.3 ??F (36.3 ??C)-98.1 ??F (36.7 ??C)] 98 ??F (36.7 ??C) Heart Rate: [75-110] 85 Resp: [10-20] 16 BP: (89-126)/(43-70) 91/43 Intake/Output Summary (Last 24 hours) at 10/15/2024 1015 Last data filed at 10/14/2024 1356 Gross per 24 hour Intake 356.67 ml Output -- Net 356.67 ml Physical Exam Gen: No acute distress. Resting in bed. HEENT:. + scleral icterus. CV: Regular rate and rhythm. Lungs:Comfortable on RA Abdomen: Soft, nontender, distended Skin: jaundiced Neuro: Alert. No focal deficits. No asterixis Psych: Appropriate mood and affect. Laboratory: Lab Results Component Value Date WBC 4.6 10/15/2024 HGB 7.1 (L) 10/15/2024 HCT 19.6 (L) 10/15/2024 MCV 100.8 (H) 10/15/2024 PLT 34 (L) 10/15/2024 Lab Results Component Value Date NA 135 10/15/2024 K 3.4 (L) 10/15/2024 CL 107 10/15/2024 CO2 17 (L) 10/15/2024 BUN 55 (H) 10/15/2024 CREATININE 2.88 (H) 10/15/2024 GLUCOSE 125 (H) 10/15/2024 CALCIUM 8.4 (L) 10/15/2024 PHOS 3.9 10/15/2024 Lab Results Component Value Date AST 39 10/15/2024 ALT 22 10/15/2024 BILITOT 7.1 (H) 10/15/2024 BILIDIRECT 3.77 (H) 10/15/2024 PROT 4.8 (L) 10/15/2024 ALBUMIN 3.2 (L) 10/15/2024 ALBUMIN 3.2 (L) 10/15/2024 ALKPHOS 115 10/15/2024 Lab Results Component Value Date INR 1.8 (H) 10/15/2024 Lab Results Component Value Date HEPAIGM Nonreactive 10/07/2024 HEPBIGM Nonreactive 09/03/2024 Microbiology: Lab Results Component Value Date LABGRAM Cytospin Results: 10/10/2024 LABGRAM Polymorphonuclear Leukocytes Seen; 10/10/2024 LABGRAM No Organisms Seen; 10/10/2024 MELD 3.0: 33 at 10/15/2024 6:08 AM Calculated from: Serum Creatinine: 2.88 mg/dL at 10/15/2024 6:08 AM Serum Sodium: 135 mmol/L at 10/15/2024 6:08 AM Total Bilirubin: 7.1 mg/dL at 10/15/2024 6:08 AM Serum Albumin: 3.2 g/dL at 10/15/2024 6:08 AM INR(ratio): 1.8 at 10/15/2024 6:08 AM Age at listing (hypothetical): 39 years Sex: Male at 10/15/2024 6:08 AM Assessment/Plan: This is a 39 year old male history of ETOH cirrhosis d/b HE, ascites with SBP who is admitted for AMS. Precipitant of his HE likely SBP. Diagnostic paracentesis at OSH reportedly showed 61 nucleated cells, <2000 RBCs 10% Polynuclear, 90% [place] nuc. There were initial reports of gram + rods on fluid gram stain but this has also been reported as NGTD. Mental status improved after course of ceftriaxone. Patient completed work up for liver transplant. Anticipate listing him for SLK next week. Patient likely to discharge home today. Plan/Recommendation # HE # Hx of SBP -Improved with course of CTX for bacterascites. - continue cipro for secondary prophylaxis -continue rifaximin, Zinc, and lactulose; titrate to 3 bowel movements daily # NADIYA on CKD -Most likely 2/2 to HRS-NADIYA . - Cr stabilized, liklely new baseline. - If GFR < 30 until 10/22 will qualify for SLK -#Ascites -PRN paracentesis - Low Na diet #Varices- -history of bleeding gastric Evs s/p coliing in 06/2022. EGD 10/09 - PHG, medium sized Evs (no band). Not BB tolerant. # History of RCC s/p cryoablation # Indeterminate liver lesion on outside CT # Indeterminate Renal lesion on outside CT - OSH CT A/P with iso-attenuating round nodular outpouching in inf R lobe measuring 3.6 x 3.8cm. Also exophytic renal mass. - AFP WNL - MRI to evaluate liver and kidney lesions complete, no concerning lesions identified #Transplant: -patient has completed 8/12 weeks CD treatment required to be considered for transplant. Plans amenable to completing treatment post transplant. - History of anxiety/ PTSD . Psych evaluating patient this morning to make recommendations on medical management of this. -discussed at transplant selection meeting and inpatient transplant eval is completed. - Patient will qualify for SLK if eGFR remains <30 until October 22. Anticipate listing him at that time Patient seen and discussed with the attending physician, Dr Sidhu. Recommendations are final following attestation JERAD HUGHES MD PGY-5 10/15/2024, 10:15 AM [1] Allergies Allergen Reactions Adhesive Itching and Rash Tegaderm adhesive on Ivs, pt states its tolerable Duloxetine Other (See Comments) Became Manic Cosigned by Chinedu Sidhu MD at 10/18/2024 1:20 PM EDT Associated attestation - Chinedu Sidhu MD - 10/18/2024 1:20 PM EDT I saw and examined the patient. I discussed with the resident or fellow and agree with resident's/fellow's findings and plan as documented in the note. Copied / pasted information was reviewed and confirmed to be accurate. For ROS, please see resident /fellow note, but all other ROS reviewed and negative. Please also see below. Patient seen and examined on 10/15/2024. Briefly, 39-year-old gentleman with decompensated cirrhosis secondary to alcohol with MELD of 34 admitted for altered mental status. His liver disease has been decompensated by hepatic encephalopathy, ascites, SBP. He is undergoing evaluation for liver transplantation. Also history of RCC status post cryoablation. Patient with known cirrhosis with continued alcohol use. He is sober now since July 2024.He is undergoing chemical dependency treatment and has completed 8 of planned 12 weeks. Completed course of ceftriaxone for bacterial ascites and now on Cipro. HE is controlled. Creatinine is near 3.MRI with no liver lesions, ablated left renal lesion without recurrence. Left heart cath with no evidence of obstructive coronary disease. Awaiting psych consult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 Oral Daily 0900 Continuous Infusions: PRN Meds: acetaminophen, diphenhydrAMINE-zinc acetate, loratadine, metoprolol tartrate, oxyCODONE OR oxyCODONE Prior to Admission Meds: Home Medications Medication Sig Taking? Last Dose ciprofloxacin HCl (CIPRO) 500 MG tablet Take 1 tablet (500 mg total) by mouth daily. Yes Past Week folic acid (FOLVITE) 1 MG tablet Take 1 tablet (1 mg total) by mouth daily. Yes Past Week lactulose (CHRONULAC) 10 gram/15 mL solution Take 30 mLs (20 g total) by mouth 3 times a day as needed (goal 2-3 bowel movements a day). Yes 10/05/2024 Morning levothyroxine (SYNTHROID) 75 MCG tablet Take 1 tablet (75 mcg total) by mouth every morning before breakfast. Yes 10/05/2024 pantoprazole (PROTONIX) 40 MG tablet Take 1 tablet (40 mg total) by mouth every morning before breakfast. Yes Past Week potassium chloride (KLOR-CON M20) 20 MEQ tablet Take 2 tablets (40 mEq total) by mouth daily. Yes Past Week rifAXIMin (XIFAXAN) 550 mg Tab tablet Take 1 tablet (550 mg total) by mouth 2 times a day. Yes 10/05/2024 Morning sodium bicarbonate 650 MG tablet Take 2 tablets (1,300 mg total) by mouth 3 times a day. Yes 10/05/2024 Morning thiamine HCl (VITAMIN B-1) 100 MG tablet Take 1 tablet (100 mg total) by mouth daily. Yes Past Week traMADoL (ULTRAM) 50 mg tablet Take 1 tablet (50 mg total) by mouth every 12 hours as needed for Pain (Pain). Yes Past Week ursodioL (ACTIGALL) 300 mg capsule Take 1 capsule (300 mg total) by mouth 2 times a day. Yes 10/05/2024 Morning zinc sulfate (ZINCATE) 50 mg zinc (220 mg) capsule Take 1 capsule (220 mg total) by mouth daily. Yes Past Week Vitals: Temp: [97.3 ??F (36.3 ??C)-98.2 ??F (36.8 ??C)] 98.2 ??F (36.8 ??C) Heart Rate: [72-94] 72 Resp: [16-18] 18 BP: (107-117)/(49-65) 112/57 Intake/Output Summary (Last 24 hours) at 10/14/2024 0742 Last data filed at 10/14/2024 0000 Gross per 24 hour Intake 0 ml Output 3 ml Net -3 ml Physical Exam Gen: No acute distress. Resting in bed. HEENT:. + scleral icterus. CV: Regular rate and rhythm. Lungs:Comfortable on RA Abdomen: Soft, nontender, distended Skin: jaundiced Neuro: Alert. No focal deficits. No asterixis Psych: Appropriate mood and affect. Laboratory: Lab Results Component Value Date WBC 5.5 10/14/2024 HGB 7.6 (L) 10/14/2024 HCT 21.3 (L) 10/14/2024 MCV 101.7 (H) 10/14/2024 PLT 35 (L) 10/14/2024 Lab Results Component Value Date NA 136 10/14/2024 K 3.5 10/14/2024 CL 107 10/14/2024 CO2 16 (L) 10/14/2024 BUN 55 (H) 10/14/2024 CREATININE 3.01 (H) 10/14/2024 GLUCOSE 95 10/14/2024 CALCIUM 8.5 (L) 10/14/2024 PHOS 4.4 10/14/2024 Lab Results Component Value Date AST 41 (H) 10/14/2024 ALT 22 10/14/2024 BILITOT 7.2 (H) 10/14/2024 BILIDIRECT 3.86 (H) 10/14/2024 PROT 4.6 (L) 10/14/2024 ALBUMIN 3.3 (L) 10/14/2024 ALBUMIN 3.3 (L) 10/14/2024 ALKPHOS 119 10/14/2024 Lab Results Component Value Date INR 2.1 (H) 10/14/2024 Lab Results Component Value Date HEPAIGM Nonreactive 10/07/2024 HEPBIGM Nonreactive 09/03/2024 Microbiology: Lab Results Component Value Date LABGRAM Cytospin Results: 10/10/2024 LABGRAM Polymorphonuclear Leukocytes Seen; 10/10/2024 LABGRAM No Organisms Seen; 10/10/2024 MELD 3.0: 34 at 10/14/2024 2:53 AM Calculated from: Serum Creatinine: 3.01 mg/dL (Using max of 3 mg/dL) at 10/14/2024 2:53 AM Serum Sodium: 136 mmol/L at 10/14/2024 2:53 AM Total Bilirubin: 7.2 mg/dL at 10/14/2024 2:53 AM Serum Albumin: 3.3 g/dL at 10/14/2024 2:53 AM INR(ratio): 2.1 at 10/14/2024 2:53 AM Age at listing (hypothetical): 39 years Sex: Male at 10/14/2024 2:53 AM Assessment/Plan: This is a 39 year old male history of ETOH cirrhosis d/b HE, ascites with SBP who is admitted for AMS. Precipitant of his HE likely SBP. Diagnostic paracentesis at OSH reportedly showed 61 nucleated cells, <2000 RBCs 10% Polynuclear, 90% [place] nuc. There were initial reports of gram + rods on fluid gram stain but this has also been reported as NGTD. Mental status improved after course of ceftriaxone. Patient discussed at transplant meeting today. Will await results of heart cath, but hopeful to list patient based on results. Patient doesn't need to stay inpatient if otherwise suitable for discharge. Plan/Recommendation # HE # Hx of SBP -Improved with course of CTX for bacterascites. - continue cipro for secondary prophylaxis -continue rifaximin, Zinc, and lactulose; titrate to 3 bowel movements daily # NADIYA on CKD -Most likely 2/2 to HRS-NADIYA . - Cr stabilized, liklely new baseline. - If GFR < 30 until 10/22 will qualify for SLK -#Ascites -PRN paracentesis - Low Na diet #Varices- -history of bleeding gastric Evs s/p coliing in 06/2022. EGD 10/09 - PHG, medium sized Evs (no band). Not BB tolerant. # History of RCC s/p cryoablation # Indeterminate liver lesion on outside CT # Indeterminate Renal lesion on outside CT - OSH CT A/P with iso-attenuating round nodular outpouching in inf R lobe measuring 3.6 x 3.8cm. Also exophytic renal mass. - AFP WNL - MRI to evaluate liver and kidney lesions complete, no concerning lesions identified #Transplant: -patient has completed 8/12 weeks CD treatment required to be considered for transplant. Plans amenable to completing post transplant. -discussed at transplant selection meeting and inpatient transplant eval ongoing. Transplant work up ongoing - [facility] today - Transplant nephrology following for consideration for SLK given persistently low eGFR. Per their recommendation, patient will qualify for SLK if eGFR remains <30 until October 22. Pending above cardiac work up, will wait until October 22 to list for SLK. However, if patient decompensates prior to that, will consider for liver transplant alone Patient seen and discussed with the attending physician, Dr Sidhu. Recommendations are final following attestation JERAD HUGHES MD PGY-5 10/14/2024, 7:42 AM [1] Allergies Allergen Reactions Adhesive Itching and Rash Tegaderm adhesive on Ivs, pt states its tolerable Duloxetine Other (See Comments) Became Manic Cosigned by Chinedu Sidhu MD at 10/18/2024 1:18 PM EDT Associated attestation - Chinedu Sidhu MD - 10/18/2024 1:18 PM EDT I saw and examined the patient. I discussed with the resident or fellow and agree with resident's/fellow's findings and plan as documented in the note. Copied / pasted information was reviewed and confirmed to be accurate. For ROS, please see resident /fellow note, but all other ROS reviewed and negative. Please also see below. Patient seen and examined on 10/14/2024. Briefly, 39-year-old gentleman with decompensated cirrhosis secondary to alcohol with MELD of 34 admitted for altered mental status. His liver disease has been decompensated by hepatic encephalopathy, ascites, SBP. He is undergoing evaluation for liver transplantation. Also history of RCC status post cryoablation. Patient with known cirrhosis with continued alcohol use. He is sober now since July 2024.He is undergoing chemical dependency treatment and has completed 8 of planned 12 weeks. Completed course of ceftriaxone for bacterial ascites and now on Cipro. HE is controlled. Creatinine is near 3.MRI performed. 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 He has now improved and undergoing liver transplant evaluation. - Daily MELD labs - Cipro for secondary prophylaxis of SBP - As needed paracentesis. Low-sodium diet - Continue lactulose, rifaximin, and zinc - Awaiting final MRI read. - Undergoing transplant evaluation with plan for completion of chemical dependency treatment as outpatient. - Left heart cath today which was delayed till today - Given his renal dysfunction, will plan to list for SLK when he qualifies on 10/22/2024. - Will follow Bobby Sidhu MD Transplant Family Preservation Worker Please see the body of the resident, [...] reviewed independently any interval liver pathology. * Jeremiah Gamino MD - 10/13/2024 3:30 PM EDT Images from the original note were not included. Department of Internal Medicine Nephrology & Hypertension Progress note Patient: Julien Gilbert Date of Admit: 10/05/2024 Referring physician: Fouzia Rene MD Summary Julien Gilbert is 39 y.o. male with liver cirrhosis, and NADIYA. AMS improved. Transplant evaluation for OLT ongoing. To be eligible for kidney txp- GFR remains <30 until October 22. ASSESSMENT NADIYA on CKD, last discharge creatinine 2.4 Baseline Creatinine 1.2-1.3, HRS- NADIYA as no response to holding lasix and albumin UA bland Urine lytes <10/< 15/ 50 Renal Function: Recent Labs 10/13/24 0535 10/12/24 0544 10/11/24 0302 BUN 54* 52* 49* CREATININE 2.99* 2.94* 2.77* Electrolytes: Na: 134 K: 3.7 Cl: 109 Alb: 3.1; 3.1 Ma.0 Ca: 8.3 Phos: 4.5 Acid Base Status: Anion Gap: 11 Bicarb: 14 Hypertension/CVS: BP: 109/62 Mineral Bone Disease: Ca: 8.3 PO4: 4.5 PTH: No results found for requested labs within last 3600 days. on No results found for requested labs within last 3600 days. Vit D: 7.1 on 10/08/2024 Anemia of CKD: Hgb 7.4 Iron 81 on 10/08/2024 Ferritin 706.9 on 10/08/2024 TIBC: SEE COMMENT on 10/08/2024 Iron%- Iron replete PLAN -planned for LHC as a part of OLT eval -high risk of needing dialysis after LHC, hold lasix -severe metabolic acidosis start concentrated bicarb drip 150meq in 1L of sterile water Thank you for allowing us to participate in this patient's care. Discussed with Consult Staff. Jeremiah Gamino PGY4 Nephrology. Pager no. [phone] Chief Complaint No chief complaint on file. Reason for Consult NADIYA History of Present Illness Julien Gilbert is a 39 y.o. y/o male with alcoholic cirrhosis, on twice weekly paracentesis, hepatic encephalopathy, esophageal varices, presented with AMS- SBP resolved after treatment. S/p albumin x 3 Worsening creatinine - hence nephrology was consulted Histories he has a past medical history of Alcoholic cirrhosis of liver (CMS-HCC), Alcoholic hepatitis, Esophageal varices (CMS-HCC), Hepatorenal syndrome (CMS- HCC), Hypertension, Other hyperlipidemia (07/26/2024), Renal cell carcinoma (CMS-HCC), Thrombocytopenia (CMS-HCC), and Thyroid disease. he has a past surgical history that includes Esophagogastroduodenoscopy (N/A, 10/10/2024). he family history is not on file. he reports that he has quit smoking. His smoking use included cigarettes. He uses smokeless tobacco. He reports current alcohol use. He reports current drug use. Drug: Marijuana. Allergies[1] Medications- reviewed Physical Exam Constitutional: Normal appearance. HENT: Head: Normocephalic and atraumatic. Nose: Nose normal. Eyes: Pupils: Pupils are equal, round, and reactive to light. Cardiovascular- Pulses: Normal pulses. Heart sounds: Normal heart sounds. Pulmonary: Breath sounds: Normal breath sounds. Abdominal: Palpations: Abdomen is soft. Musculoskeletal: General: Normal range of motion. SkinGeneral: Skin is warm and dry. Neurological: No focal deficit present. Mental Status: alert and oriented to person, place, and time. Psychiatric: Behavior: Behavior normal. In addition to the above an extensive amount of complex data in the patients lab and chart were reviewed. Diagnostic Imaging Reviewed in EMR. [1] Allergies Allergen Reactions Adhesive Itching and Rash Tegaderm adhesive on Ivs, pt states its tolerable Duloxetine Other (See Comments) Became Manic Cosigned by Dwayne Paez MD at 10/13/2024 5:33 PM EDT Associated attestation - Dwayne Paez MD - 10/13/2024 5:33 PM EDT I saw and examined the patient. I discussed with the resident or fellow and agree with Dr. Gamino's findings and plan as documented in the note. Patient with end-stage liver disease with acute kidney injury on top. Undergoing liver transplant workup. Is going to get left heart catheterization as a part of the procedure. Patient is aware that the dye can put him in the dialysis range as a result of this. Agreeable to the procedure. Nephrology will continue to follow. Dwayne Paez MD, This [...] evaluation and management for this patient. * Jerad Hughes MD - 10/13/2024 12:33 PM EDT [facility] PROGRESS NOTE Name: Julien Gilbert CSN: [id number] Consulted by: Fouzia Rene MD Reason for Consult: Decompensated Cirrhosis History of Present Illness: Julien Gilbert is a 39 y.o. with history of decompensated EtOH cirrhosis (complicated by EV, HRS, ascites, HE), HTN, and CKD who was transferred from H for altered mental status Interval History -Patient is alert and oriented today - Renal function is unchanged today, likely new baseline. Review of Systems -all systems reviewed; negative unless stated above Past Medical History: Diagnosis Date Alcoholic cirrhosis of liver (CMS-HCC) Alcoholic hepatitis Esophageal varices ([facility]-HCC) Hepatorenal syndrome ([facility]-HCC) Hypertension Other hyperlipidemia 07/26/2024 Renal cell carcinoma (CMS-HCC) Thrombocytopenia (CMS-HCC) Thyroid disease Past Surgical History: Procedure Laterality Date ESOPHAGOGASTRODUODENOSCOPY N/A 10/10/2024 Procedure: EGD; Surgeon: Lino Soto MD; Location: ENDOSCOPY; Service: Gastroenterology; Laterality: N/A; History reviewed. No pertinent family history. Social History Tobacco Use Smoking status: Former Types: Cigarettes Smokeless tobacco: Current Substance Use Topics Alcohol use: Yes Comment: History of alcohol abuse, reports no use in 3 week- typically endorses use as 4 glasses ofwine a days Allergies[1] Scheduled Meds: ciprofloxacin HCl 500 mg Oral Q24H folic acid 1 mg Oral Daily 0900 heparin 5,000 Units Subcutaneous 3 times per day lactulose 20 g Oral TID levothyroxine 75 mcg Oral QAM AC melatonin 6 mg Oral Daily with dinner methocarbamoL 500 mg Oral TID midodrine 10 mg Oral TID pantoprazole 40 mg Oral QAM AC rifAXIMin 550 mg Oral BID sodium bicarbonate 1,300 mg Oral TID thiamine HCl 100 mg Oral Daily 0900 ursodioL 300 mg Oral BID zinc sulfate 220 mg Oral Daily 0900 Continuous Infusions: sodium chloride 0.9 % PRN Meds: acetaminophen, diphenhydrAMINE-zinc acetate, loratadine, metoprolol tartrate, oxyCODONE OR oxyCODONE Prior to Admission Meds: Home Medications Medication Sig Taking? Last Dose ciprofloxacin HCl (CIPRO) 500 MG tablet Take 1 tablet (500 mg total) by mouth daily. Yes Past Week folic acid (FOLVITE) 1 MG tablet Take 1 tablet (1 mg total) by mouth daily. Yes Past Week lactulose (CHRONULAC) 10 gram/15 mL solution Take 30 mLs (20 g total) by mouth 3 times a day as needed (goal 2-3 bowel movements a day). Yes 10/05/2024 Morning levothyroxine (SYNTHROID) 75 MCG tablet Take 1 tablet (75 mcg total) by mouth every morning before breakfast. Yes 10/05/2024 pantoprazole (PROTONIX) 40 MG tablet Take 1 tablet (40 mg total) by mouth every morning before breakfast. Yes Past Week potassium chloride (KLOR-CON M20) 20 MEQ tablet Take 2 tablets (40 mEq total) by mouth daily. Yes Past Week rifAXIMin (XIFAXAN) 550 mg Tab tablet Take 1 tablet (550 mg total) by mouth 2 times a day. Yes 10/05/2024 Morning sodium bicarbonate 650 MG tablet Take 2 tablets (1,300 mg total) by mouth 3 times a day. Yes 10/05/2024 Morning thiamine HCl (VITAMIN B-1) 100 MG tablet Take 1 tablet (100 mg total) by mouth daily. Yes Past Week traMADoL (ULTRAM) 50 mg tablet Take 1 tablet (50 mg total) by mouth every 12 hours as needed for Pain (Pain). Yes Past Week ursodioL (ACTIGALL) 300 mg capsule Take 1 capsule (300 mg total) by mouth 2 times a day. Yes 10/05/2024 Morning zinc sulfate (ZINCATE) 50 mg zinc (220 mg) capsule Take 1 capsule (220 mg total) by mouth daily. Yes Past Week Vitals: Temp: [97.3 ??F (36.3 ??C)-98.1 ??F (36.7 ??C)] 98.1 ??F (36.7 ??C) Heart Rate: [86-94] 86 Resp: [16-18] 16 BP: (101-117)/(46-62) 109/62 Intake/Output Summary (Last 24 hours) at 10/13/2024 1234 Last data filed at 10/13/2024 1000 Gross per 24 hour Intake 400 ml Output -- Net 400 ml Physical Exam Gen: No acute distress. Resting in bed. HEENT:. + scleral icterus. CV: Regular rate and rhythm. Lungs:Comfortable on RA Abdomen: Soft, nontender, distended Skin: jaundiced Neuro: Alert. No focal deficits. No asterixis Psych: Appropriate mood and affect. Laboratory: Lab Results Component Value Date WBC 4.7 10/13/2024 HGB 7.4 (L) 10/13/2024 HCT 21.7 (L) 10/13/2024 MCV 105.4 (H) 10/13/2024 PLT 35 (L) 10/13/2024 Lab Results Component Value Date NA 134 10/13/2024 K 3.7 10/13/2024 CL 109 10/13/2024 CO2 14 (L) 10/13/2024 BUN 54 (H) 10/13/2024 CREATININE 2.99 (H) 10/13/2024 GLUCOSE 116 (H) 10/13/2024 CALCIUM 8.3 (L) 10/13/2024 PHOS 4.5 10/13/2024 Lab Results Component Value Date AST 42 (H) 10/13/2024 ALT 19 10/13/2024 BILITOT 6.5 (H) 10/13/2024 BILIDIRECT 3.53 (H) 10/13/2024 PROT 4.4 (L) 10/13/2024 ALBUMIN 3.1 (L) 10/13/2024 ALBUMIN 3.1 (L) 10/13/2024 ALKPHOS 108 10/13/2024 Lab Results Component Value Date INR 2.1 (H) 10/13/2024 Lab Results Component Value Date HEPAIGM Nonreactive 10/07/2024 HEPBIGM Nonreactive 09/03/2024 Microbiology: Lab Results Component Value Date LABGRAM Cytospin Results: 10/10/2024 LABGRAM Polymorphonuclear Leukocytes Seen; 10/10/2024 LABGRAM No Organisms Seen; 10/10/2024 MELD 3.0: 35 at 10/13/2024 5:35 AM Calculated from: Serum Creatinine: 2.99 mg/dL at 10/13/2024 5:35 AM Serum Sodium: 134 mmol/L at 10/13/2024 5:35 AM Total Bilirubin: 6.5 mg/dL at 10/13/2024 5:35 AM Serum Albumin: 3.1 g/dL at 10/13/2024 5:35 AM INR(ratio): 2.1 at 10/13/2024 5:35 AM Age at listing (hypothetical): 39 years Sex: Male at 10/13/2024 5:35 AM Assessment/Plan: This is a 39 year old male history of ETOH cirrhosis d/b HE, ascites with SBP who is admitted for AMS. Precipitant of his HE likely SBP. Diagnostic paracentesis at OSH reportedly showed 61 nucleated cells, <2000 RBCs 10% Polynuclear, 90% [place] nuc. There were initial reports of gram + rods on fluid gram stain but this has also been reported as NGTD. Mental status improved after course of ceftriaxone. Plan/Recommendation # HE # Hx of SBP -Improved with course of CTX for bacterascites. - continue cipro for secondary prophylaxis -continue rifaximin, Zinc, and lactulose; titrate to 3 bowel movements daily # NADIYA on CKD -Most likely 2/2 to HRS-NADIYA . - Cr stabilized, liklely new baseline. - If GFR < 30 until 10/22 will qualify for SLK -#Ascites -PRN paracentesis - Low Na diet #Varices- -history of bleeding gastric Evs s/p coliing in 06/2022. EGD 10/09 - PHG, medium sized Evs (no band). Not BB tolerant. # History of RCC s/p cryoablation # Indeterminate liver lesion on outside CT # Indeterminate Renal lesion on outside CT - OSH CT A/P with iso-attenuating round nodular outpouching in inf R lobe measuring 3.6 x 3.8cm. Also exophytic renal mass. - AFP WNL - Needs inpatient MRI to evaluate liver and kidney lesions #Transplant: -patient has completed 8/12 weeks CD treatment required to be considered for transplant. Plans amenable to completing post transplant. -discussed at transplant selection meeting and inpatient transplant eval ongoing. Transplant work up ongoing - [facility] today - Transplant nephrology following for consideration for SLK given persistently low eGFR. Per their recommendation, patient will qualify for SLK if eGFR remains <30 until October 22. Pending above cardiac work up, will wait until October 22 to list for SLK. However, if patient decompensates prior to that, will consider for liver transplant alone Patient seen and discussed with the attending physician, Dr Sidhu. Recommendations are final following attestation JERAD HUGHES MD PGY-5 10/13/2024, 12:34 PM [1] Allergies Allergen Reactions Adhesive Itching and Rash Tegaderm adhesive on Ivs, pt states its tolerable Duloxetine Other (See Comments) Became Manic Cosigned by Chinedu Sidhu MD at 10/18/2024 1:16 PM EDT Associated attestation - Chinedu Sidhu MD - 10/18/2024 1:16 PM EDT I saw and examined the patient. I discussed with the resident or fellow and agree with resident's/fellow's findings and plan as documented in the note. Copied / pasted information was reviewed and confirmed to be accurate. For ROS, please see resident /fellow note, but all other ROS reviewed and negative. Please also see below. Patient seen and examined on 10/13/2024. Briefly, 39-year-old gentleman with decompensated cirrhosis secondary to alcohol with MELD of 35 admitted for altered mental status. His liver disease has been decompensated by hepatic encephalopathy, ascites, SBP. He is undergoing evaluation for liver transplantation. Also history of RCC status post cryoablation. Patient with known cirrhosis with continued alcohol use. He is sober now since July 2024.He is undergoing chemical dependency treatment and has completed 8 of planned 12 weeks. Completed course of ceftriaxone for bacterial ascites and now on Cipro. HE is controlled. Creatinine is near 3. 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 He has now improved and undergoing liver transplant evaluation. - Daily MELD labs - Cipro for secondary prophylaxis of SBP - As needed paracentesis. Low-sodium diet - Continue lactulose, rifaximin, and zinc - Plan for cross-sectional imaging to evaluate liver lesions and RCC - Undergoing transplant evaluation with plan for completion of chemical dependency treatment as outpatient. - Left heart cath today - Given his renal dysfunction, will plan to list for SLK when he qualifies on 10/22/2024. - Will follow Bobby Sidhu MD Transplant Family Preservation Worker Please see the body of the resident, [...] reviewed independently any interval liver pathology. * Rebekah Linares, [facility] [place] - 10/13/2024 12:30 PM EDT Start Time: 1230pm End Time: 110pm Goals/objectives targeted: Pt will maintain sobriety. 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 Julien was open that he knows what will trigger him, like going to [employer] to eat wings. Julien, and Julien's father were present in hospitalroom. Abdiaziz (Julien's ) states that she feels like he is working really hard and making progressin counseling for chemical dependency but she wants him to continue with counseling after transplant, until he has a good support plan and relapse prevention plan. Julien was in agreement with this plan and has remained motivated to stay sober, citing he is aware that some places would not be good for him to be right now and controlling his environment as much as he can right now can prevent relapse. O: Pt is required to have 12 individual counseling sessions with CD counselor. This counselor working with pt while he is inpatient. Mental Status Exam Motor Behavior: no psychomotor abnormalities Cognition: short term and meterman memory intact Attitude: cooperative Affect: full range Appearance: appropriately dressed Speech: normal rate Mood: euthymic Thought Processes: well organized Perceptions: no hallucinations or other abnormalities Thought content: no delusions Insight/ judgement: fair/fair Suicidal ideation: none Homicidal ideation: none A: Counselor met with pt at bedside inpatient. Counselor observed pt to admit to having some triggers/cravings and he is motivated to continue to speak with community counselor after transplant to assist with dealing with coping skills/stressors/triggers. Pt will continue to work with community counselor on coping skills, triggers, dealing with stress and relapse prevention. P:Client will meet with his community CD counselor for 12 individual sessions and ongoing after transplant. Julien reports once he has his transplant his virtual counselor suggested getting him referred somewhere closer to his home to continue counseling. * Citlaly Fabian, RD - 10/13/2024 10:49 AM EDT [facility] Medical Nutrition Therapy Reason(s) for Completion: Nutrition Services Protocol Diet Order/Nutrition Support: Diet/Nutrition Orders Diet NPO past midnight Except for: except sips with meds, for procedure Frequency: Effective Number of Occurrences: Until Specified Order Questions: Except for except sips with meds Except for for procedure Dietary nutrition supplements Frequency: TID Number of Occurrences: Until Specified Order Comments: Vanilla boost Order Questions: Select Supplement: Boost-1 kcal/ml supplement ([facility] only) Pertinent Information: Julien Gilbert is a 39 y.o. Male admitted for Acute kidney injury superimposedon CKD ([facility]-H[facility]) Pt noted to have waxing and waning encephalopathy at home over the last few days, initially suspected to be hyperammonemia by and patient, somewhat improved initially with lactulose; however encephalopathy subsequently worsened again. Notably, pt has a history of decompensatedcirrhosis episodes including HRS and hepatic encephalopathy. Currently maintain high suspicion for toxic/metabolic encephalopathy in the setting of possible decompensated alcoholic cirrhosis. Continued to have diarrheal episodes despite completion of oral vancomycin for recent C. Diff. PT on regular diet with boost 1kcal/TID ordered/tolerated per chart review. Rec to continue current diet as ordered/tolerated appropriate to meet his nutritonal needs. Glucose: 116-121mg/dl x 24 hours. I/O: +1.12L net volume. Last BM Date: 10/12/24. Admit Weight: 263 lb 8 oz (119.5 kg) Current Weight: please obtain Pertinent Labs: Recent Labs 10/11/2430110/12/2444 10/13/24 0535 WBC 4.0 3.3* 4.7 HGB 7.7* 7.2* 7.4* HCT 21.2* 19.7* 21.7* PLT 32* 30* 35* Recent Labs 10/11/2430110/12/24 0544 10/13/24 0535 NA 134 135 134 K 3.6 3.7 3.7 CL 108 109 109 CO2 16* 17* 14* BUN 49* 52* 54* CREATININE 2.77* 2.94* 2.99* GLUCOSE 112* 121* 116* CALCIUM 8.9 8.5* 8.3* MG 2.0 1.9 2.0 PHOS 3.5 4.6 4.5 Recent Labs 10/11/2430110/12/24 0544 10/13/24 0535 AST 39 40* 42* ALT 20 19 19 BILITOT 7.3* 6.5* 6.5* BILIDIRECT 3.85* 3.64* 3.53* ALKPHOS 88 99 108 ALBUMIN 3.3* 3.3* 3.1* 3.1* 3.1* 3.1* Recent Labs 10/11/2430110/12/24 0544 10/13/24 0535 INR 2.4* 2.3* 2.1* PROTIME 26.8* 25.7* 24.4* No results for input(s): HGBA1C in the last 72 hours. Past Medical History: Diagnosis Date Alcoholic cirrhosis of liver (CMS-HCC) Alcoholic hepatitis Esophageal varices (CMS-HCC) Hepatorenal syndrome (CMS-HCC) Hypertension Other hyperlipidemia 07/26/2024 Renal cell carcinoma (CMS-HCC) Thrombocytopenia (CMS-HCC) Thyroid disease Past Surgical History: Procedure Laterality Date ESOPHAGOGASTRODUODENOSCOPY N/A 10/10/2024 Procedure: EGD; Surgeon: Lino Soto MD; Location: ENDOSCOPY; Service: Gastroenterology; Laterality: N/A; Scheduled Meds: ciprofloxacin HCl 500 mg Oral Q24H folic acid 1 mg Oral Daily 0900 heparin 5,000 Units Subcutaneous 3 times per day lactulose 20 g Oral TID levothyroxine 75 mcg Oral QAM AC melatonin 6 mg Oral Daily with dinner methocarbamoL 500 mg Oral TID midodrine 10 mg Oral TID pantoprazole 40 mg Oral QAM AC rifAXIMin 550 mg Oral BID sodium bicarbonate 1,300 mg Oral TID thiamine HCl 100 mg Oral Daily 0900 ursodioL 300 mg Oral BID zinc sulfate 220 mg Oral Daily 0900 Continuous Infusions: sodium chloride 0.9 % PRN Meds:acetaminophen, diphenhydrAMINE-zinc acetate, loratadine, metoprolol tartrate, oxyCODONE OR oxyCODONE Vital Signs: Temp: [97.3 ??F (36.3 ??C)-97.9 ??F (36.6 ??C)] 97.9 ??F (36.6 ??C) Heart Rate: [85-94] 91 Resp: [14-18] 16 BP: (96-117)/(46-59) 104/58 Skin Integrity: Yusuf Scale Score: 20 Edema: RLE Edema: Non Pitting Edema LLE Edema: Mild pitting, slight indentation GI: Abdomen Inspection: Soft, Rounded, Distended, Gross ascites Bowel Sounds (All Quadrants): Active Palpation/Percussion: Tenderness Passing Flatus: Yes Potential Nutrition Related Factor(s): Appetite Change Social needs that may impact access to food: none Food Allergies/Intolerances: none Cultural Requests: none Anthropometrics: Ht Readings from Last 1 Encounters: 09/05/24 6' 4 (1.93 m) Wt Readings from Last 1 Encounters: 10/10/24 (!) 263 lb 8 oz (119.5 kg) Body mass index is 32.07 kg/m??. [place] Body Weight: 202 lbs (91.8 kg) +/- 10% Weight History: Wt Readings from Last 10 Encounters: 10/10/24 (!) 263 lb 8 oz (119.5 kg) 09/05/24 (!) 262 lb 9.6 oz (119.1 kg) 09/02/24 (!) 258 lb (117 kg) 08/17/24 (!) 242 lb 11.2 oz (110.1 kg) 07/28/24 (!) 245 lb (111.1 kg) Estimated Nutrition Needs: Based on CBW of 119.5 kg Kcals/day: 5317-5534 (18-21 kcals/kg) Protein g/day: 119-143 (1-1-2 g/kg) Carbohydrates g/day: 45-55% of total calories Fluid ml/day: 1 ml/kcal or per MD *Needs based on clinical status at this time and subject to change. Nutrition Diagnosis: Problem: Increased energy expenditure(PRO/KCALS) Etiology: increased metabolic demand Signs/Symptoms: cirrhosis Recommended Interventions: Monitor PO Intake/Tolerance Goals:Total energy intake improved as evidenced by PO intake at least 75% of meals/supplements/snacks within 2-3 days Nutrition Transition of Care Plan: Discharge plan of care for nutrition ongoing pending clinical course Follow up per protocol while inpatient. Recommendation(s) to Physician: Continue current diet/ONS as ordered/tolerated Area RD to continue to monitor Citlaly Fabian MS RDN LD Clinical Dietitian - Solid Organ Transplant Contact via [employer] Chat * Eileen Schroeder MD, PhD - 10/13/2024 8:19 AM EDT Department of Internal Medicine Daily Progress Note Chief Complaint / Reason for Follow-Up Julien Gilbert is a 39 y.o. male on hospital day 8. The principal reason for today's follow up visit is Acute kidney injury superimposed on CKD (CMS-HCC). DREW Pt felt well this AM. A&O x 4. Denied Chest pain, fevers/chills and SOB. Pt reports feeling better after Paracentesis with IR where 8L of fluid were removed Going for LHC today Review of Systems (Focused) Negative except as mentioned above Medications Scheduled Meds: ciprofloxacin HCl 500 mg Oral Q24H folic acid 1 mg Oral Daily 0900 heparin 5,000 Units Subcutaneous 3 times per day lactulose 20 g Oral TID levothyroxine 75 mcg Oral QAM AC melatonin 6 mg Oral Daily with dinner methocarbamoL 500 mg Oral TID midodrine 10 mg Oral TID pantoprazole 40 mg Oral QAM AC rifAXIMin 550 mg Oral BID sodium bicarbonate 1,300 mg Oral TID thiamine HCl 100 mg Oral Daily 0900 ursodioL 300 mg Oral BID zinc sulfate 220 mg Oral Daily 0900 Continuous Infusions: sodium chloride 0.9 % PRN Meds: acetaminophen, diphenhydrAMINE-zinc acetate, loratadine, metoprolol tartrate, oxyCODONE OR oxyCODONE Vital Signs Temp: [97.3 ??F (36.3 ??C)-97.9 ??F (36.6 ??C)] 97.9 ??F (36.6 ??C) Heart Rate: [85-94] 91 Resp: [14-18] 16 BP: (96-117)/(46-59) 104/58 Intake/Output Summary (Last 24 hours) at 10/13/2024 1119 Last data filed at 10/13/2024 1000 Gross per 24 hour Intake 1120 ml Output -- Net 1120 ml Physical Exam Physical Exam Constitutional: Appearance: He is ill-appearing. He is not diaphoretic. HENT: Head: Normocephalic and atraumatic. Mouth/Throat: Mouth: Mucous membranes are moist. Pharynx: Oropharynx is clear. Eyes: General: Scleral icterus present. Extraocular Movements: Extraocular movements intact. Cardiovascular: Rate and Rhythm: Normal rate and regular rhythm. Pulses: Normal pulses. Pulmonary: Effort: Pulmonary effort is normal. Breath sounds: Normal breath sounds. Abdominal: General: There is distension. Tenderness: There is abdominal tenderness. Musculoskeletal: Cervical back: Tenderness present. Right lower leg: Edema present. Left lower leg: Edema present. Comments: 2+ edema on R 3+ edema on L Skin: General: Skin is dry. Coloration: Skin is jaundiced. Neurological: General: No focal deficit present. Mental Status: He is alert and oriented to person, place, and time. Cranial Nerves: Cranial nerves 2-12 are intact. No cranial nerve deficit. Motor: No weakness. Psychiatric: Mood and Affect: Mood normal. Behavior: Behavior normal. Thought Content: Thought content normal. Cognition and Memory: Cognition normal. Laboratory Data CBC 10/13/2024 \ 7.4 / 4.7 \ / 35 / \ / 21.7 \ Differential 09/16/2024 N 84.2 L 8.0 M 5.1 E 1.5 B 0.7 Renal 10/13/2024 134 109 54 / ___ __ / 116 \ 3.7 14 2.99 \ Ca 8.3 (10/13/2024) Mg 2.0 (10/13/2024) Phos 4.5 (10/13/2024) Lipids Lab Results Component Value Date CHOLTOT <25 10/07/2024 TRIG 30 10/07/2024 HDL 4 (L) 10/07/2024 LDL See Note 10/07/2024 LFTs 10/13/2024 \ 6.5 / \ 3.53 / 42 \ / 19 / \ / 108 \ PT/INR/PTT - 10/13/2024 PT 24.4 INR 2.1 PTT No results found for requested labs within last 3600 days. Lab 10/06/24 1151 COLOR, URINE Yellow CLARITY Clear SPECIFIC GRAVITY, URINE 1.014 PH UA 6.0 PROTEIN UA Negative GLUCOSE UA Negative KETONES UA Negative BILIRUBIN UA Negative BLOOD UA Negative NITRITE UA Negative UROBILINOGEN UA <2.0 LEUKOCYTES UA Negative MELD 3.0: 35 at 10/13/2024 5:35 AM Calculated from: Serum Creatinine: 2.99 mg/dL at 10/13/2024 5:35 AM Serum Sodium: 134 mmol/L at 10/13/2024 5:35 AM Total Bilirubin: 6.5 mg/dL at 10/13/2024 5:35 AM Serum Albumin: 3.1 g/dL at 10/13/2024 5:35 AM INR(ratio): 2.1 at 10/13/2024 5:35 AM Age at listing (hypothetical): 39 years Sex: Male at 10/13/2024 5:35 AM No results found for: NTPROBNP Lab Results Component Value Date TSH 0.81 10/07/2024 FREET4 0.74 09/03/2024 Diagnostic Studies X-ray Mandible minimum 4-views Final Result IMPRESSION: 1. No acute osseous abnormality. Report Verified by: Diana Devlin MD at 10/08/2024 1:12 PM EDT US Duplex Uen-Syk-Silkqus Comp Final Result IMPRESSION: ABDOMEN 1. Cirrhotic liver morphology. No suspicious hepatic lesion. 2. Moderate volume of ascites. 3. Splenomegaly. LIVER DOPPLER 1. Patent hepatic vasculature with normal directional flow. 2. Recanalized umbilical vein as a sequela of portal hypertension, with multiple venous collateralsbordering the falciform ligament. Findings similar to prior. Report Verified by: Alberto Rodriguez MD at 10/07/2024 4:26 PM EDT US Abdomen Complete Final Result IMPRESSION: ABDOMEN 1. Cirrhotic liver morphology. No suspicious hepatic lesion. 2. Moderate volume of ascites. 3. Splenomegaly. LIVER DOPPLER 1. Patent hepatic vasculature with normal directional flow. 2. Recanalized umbilical vein as a sequela of portal hypertension, with multiple venous collateralsbordering the falciform ligament. Findings similar to prior. Report Verified by: Alberto Rodriguez MD at 10/07/2024 4:[address] Head WO contrast Final Result IMPRESSION: 1. No acute intracranial abnormality. 2. No intracranial mass effect or hemorrhage. Report Verified by: Sher Abrams MD at 10/06/2024 4:50 PM EDT X-ray Portable Chest Final Result IMPRESSION: Negative portable chest. Report Verified by: Eduardo Franks MD at 10/06/2024 2:33 AM EDT DXA bone density axial skeleton (Results Pending) Assessment & Plan Julien Gilbert is a 39 y.o. male on HD# 8 with Acute kidney injury superimposed on CKD (CMS-HCC). Themedical issues being addressed in today's encounter are as follows: Principal Problem: Acute kidney injury superimposed on CKD (CMS-HCC) Active Problems: Decompensated cirrhosis (CMS-HCC) Metabolic encephalopathy Thrombocytopenia (CMS-HCC) Renal mass, left Metabolic acidosis with normal anion gap and bicarbonate losses GERD (gastroesophageal reflux disease) Anemia SBP (spontaneous bacterial peritonitis) (CMS-HCC) Neck pain with history of cervical spinal surgery #Encephalopathy Pt noted to have waxing and waning encephalopathy at home over the last few days, initially suspected to be hyperammonemia by and patient, somewhat improved initially with lactulose; however encephalopathy subsequently worsened again. Notably, pt has a history of decompensated cirrhosis episodes including HRS and hepatic encephalopathy. Currently maintain high suspicion for toxic/metabolic encephalopathy in the setting of possible decompensated alcoholic cirrhosis. Continued to have diarrheal episodes despite completion of oral vancomycin for recent C. Diff. OSH labs with low bicarb to 17 and normal lactate, so will give consideration to ongoing C. Diff. - Ammonia level 10/06: 77 within normal range - Ethanol level, Tylenol level. Salicylate level 10/06: All Low, no concern for toxin-induced etiology at this time. - PETH labs - negative - COVID/Flu/RSV(-) - UA, Blood Cx 10/07: No growth to date - Continue home lactulose and rifaximin - Follow up OSH paracentesis studies, will continue CTX until report communicated -Report showed growth of Gram + rods, pt started on IV Vancomycin -10/10: GI able to connect with OSH lab this AM who stated that no growth from ascites. Vanc dced on10/10. CTX DCed after 10/11 dose. Now back to SBP Prophylaxis regimen, Cipro 500mg QDAY #Decompensated Alcoholic Cirrhosis #Transplant evaluation Pt abdomen non-acute. Does appear significantly jaundiced with scleral icterus. Bedside paracentesis performed at OSH. Concern for possible SBP but reassured by lack of fever and hemodynamically stable status. - MELD labs Daily - Hold home Cipro prophylaxis for SBP - Continue home Zinc - Continue home ursodiol - Hepatology consult placed, appreciate recs EGD on 10/09 - s/p 3 days of Albumin infusion -Pt did not tolerate Stress ECHO on 10/09 - LHC on Sunday10/13/24 - NPO @ [facility] on 10/12/24 -Per GI reccs, started on midodrine 10mg TID -Triphasic MRI to evaluate a #Anemia Pt has recorded HgB of 6.9 on 10/08. Likely dilutional due to albumin treatment. S/p pRBC transfusion. - CTM #NAGMA, resolved Pt found to have a pH of 7.21 upon admission to , with a HCO3 18 and pCO2 41. Pt is Rx Bicarb tablets at home and has a known history of CKD. pH was improved 7.27 later in the morning. NAGMA likely due to GI loss due to lactulose and diuresis. -Continue home oral Bicarb #SBP Previously was previously on Cipro for SBP prophylaxis. Pt started on 2g of IV CTX at admission.. -Outside results obtained on 10/07 showed growth of Gram+ rods from most recent therapeutic paracentesis. -10/07: Started on IV Vancomycin based on results from outside facility. Ultimately cultures NGTD. Was transitioned back to home cipro ppx. #Aphasia (resolved) Patient appears to be unable to name objects when asked, but can readily follow commands. Additionally, pt is unable to verbally answer orientation questions. Authors was able to see pt is frustratedin his inability to verbally communicate. It appears that this waxes and wanes and could be attributed to his encephalopathy, though patient has never presented with this symptom and no head imaging has been performed at [facility]. -CT Head w/o contrast -Imaging showed no concern for acute etiology of aphasia. -Will CTM, most likely due to metabolic/toxic encephalopathy #H/o GI Bleed Pt with history of GI bleed in setting of gastric varices, for which IR at OSH had to place 17 coils. 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 - Has previously been on beta blockade for variceal prevention, but did not tolerate beta dominic due to hypotension. - s/p EGD 10/09 #Non-Oliguric NADIYA on CKD Patient noted on OSH labs to have creatinine of 3.6. Baseline creatinine appears to range 2.5-2.9. Per , pt makes urine and has never required dialysis. - Bladder Ultrasound and PVR - UA, urine lytes - Albumin challenge tonight given his NADIYA in setting of hepatic disease - Continue home bicarb tablets - Nephro consult, appreciate recs - Hold home diuretics - Strict I/O's - Workup for Kidney transplant to run concurrently with Liver transplant #h/o Left Sided RCC s/p cryoablation Cryoablation was done 2022. On CT A/P at OSH, pt noted to have persistent L sided exophytic renal mass. -renal consults and Renal Transplant team is following. Workup for Kidney transplant to run concurrently with eval for liver transplant #Hepatic Lesion of Unk etiology OSH CT A/P with iso-attenuating round nodular outpouching in inf R lobe measuring 3.6 x 3.8cm. Differential to include cyst vs metastatic RCC vs primary hepatic tumor - Hepatology consult, appreciate recs - Consider MRI inpatient -Triphasic MRI #History of AUD - Continue home thiamine repletion - PETH and ETOH level as above #History of Cervical Fusion #Neck Pain -PRN Oxy Pain Meds -Robaxin TID #GERD - continue home protonix #HTN - Continue home #HLD #Hypothyroidism - continue home synthroid Nutrition: Diet/Nutrition Orders Diet NPO past midnight Except for: except sips with meds, for procedure Frequency: Effective Number of Occurrences: Until Specified Order Questions: Except for except sips with meds Except for for procedure Dietary nutrition supplements Frequency: TID Number of Occurrences: Until Specified Order Comments: Vanilla boost Order Questions: Select Supplement: Boost-1 kcal/ml supplement ([facility] only) Code Status: Full Code Signed: EILEEN SCHROEDER MD, PhD 10/13/2024, 11:19 AM Cosigned by Fouzia Rene MD at 10/13/2024 12:14 PM EDT Associated attestation - Fouzia Rene MD - 10/13/2024 12:14 PM EDT Internal Medicine Attending Supervision Note - Hospital Day# 8 The patient was seen today on rounds with the medical team. I have personally interviewed and performed the physical exam and medical decision making. I conducted an independent review of labs, procedures and imaging pertinent to today's encounter through the EMR. I reviewed the documentation by the medical steamtable attendant railroad and agree as documented. Any additions or clarifications are listed below. Daily plan was discussed with patient at bedside and questions addressed. Patient ID: Julien Gilbert is a 39 y.o. male currently admitted for Acute kidney injury superimposed on CKD (CMS-HCC) Supplemental History/ ROS: No acute events overnight A little frustrated with timing of C scheduled for today. Otherwise feels more awake today No abdominal pain Exam: Lying in bed, NAD + jaundice NCAT, EOMI, + scleral icterus RRR, no appreciable murmur Normal resp effort, lungs CTAB, +distention, soft, NT Mild asterixis 2+ LE edema bilateral Labs and Imaging reviewed. MELD 3.0: 35 at 10/13/2024 5:35 AM Calculated from: Serum Creatinine: 2.99 mg/dL at 10/13/2024 5:35 AM Serum Sodium: 134 mmol/L at 10/13/2024 5:35 AM Total Bilirubin: 6.5 mg/dL at 10/13/2024 5:35 AM Serum Albumin: 3.1 g/dL at 10/13/2024 5:35 AM INR(ratio): 2.1 at 10/13/2024 5:35 AM Age at listing (hypothetical): 39 years Sex: Male at 10/13/2024 5:35 AM Medical Decision Making/ Assessment & Plan: Julien Gilbert is a 39 y.o. male with admitted for Acute kidney injury superimposed on CKD (CMS-HCC) Active Problems: NADIYA (acute kidney injury) on CKD (CMS-HCC): Hepatorenal syndrome. Appreciate nephrology consult. S/p albumin X3. Baseline creatinine presumed to be around 2.5. Creatinine now seems to be fluctuating between 2.5-2.9 which may be his new baseline. We will continue to monitor. Spontaneous Bacterial Peritonitis (CMS-HCC): Received 4 days of vancomycin, Ceftriaxone x 5d. Recent therapeutic paracentesis shows resolution. Continue Cipro prophylaxis Anemia: Multiple contributors. S/p 1 unit PRBC. Hemoglobin responded appropriately and remained stable. Will continue to monitor. Metabolic encephalopathy: Resolved. Likely related to combination of hepatic, metabolic, and possibly infectious insults. - Continue home lactulose and rifaximin Decompensated cirrhosis (CMS-HCC): Appreciate hepatology consult. He has started his transplant evaluation and will continue while inpatient. - Continue lactulose, rifaximin, ursodiol, and midodrine - MELD labs daily - Continue home regimen with ursodiol, rifaximin and lactulose - Continue midodrine TID. - Requires therapeutic paracentesis frequently. Last on 5/30 (8L). May benefit from another prior to discharge - Stress test was non-diagnostic due to hypotension. Plan for [facility] today, but now moved to tomorrow. - EGD completed. - Now needing MRI which has been ordered. Electrolyte derangements: Replete as needed Neck Pain: He has a history of cervical surgery. Continue oxycodone as needed for pain. Continue tomonitor. Principal Problem: Acute kidney injury superimposed on CKD (CMS-HCC) Active Problems: Decompensated cirrhosis (CMS-HCC) Metabolic encephalopathy Thrombocytopenia (CMS-HCC) Renal mass, left Metabolic acidosis with normal anion gap and bicarbonate losses GERD (gastroesophageal reflux disease) Anemia SBP (spontaneous bacterial peritonitis) (CMS-HCC) Neck pain with history of cervical spinal surgery Continue management for other medical problems per resident / AI note. Disp: Anticipate DC home with spouse when medically ready. Consider d/c home after [facility] tomorrow. FOUZIA RENE MD Attending Physician Department of Internal Medicine 10/13/2024 Medical Decision Making: // LEVEL 2 MOD One chronic illness with exacerbation, progression, or side effects of treatment Discussed with physician/SAWYER from another specialty or practice, other licensed professional (PT/OT/FLIGHT SURVEYOR/RT), or a non-medical community professional: Nephrology, Hepatology Labs reviewed (1 pt each): CBC, CMP, INR & other daily labs Review of notes from a different specialty or different practice: Nephrology, Cardiology, hepatology * Chari Vanegas MD - 10/12/2024 12:44 PM EDT Department of Internal Medicine Daily Progress Note Chief Complaint / Reason for Follow-Up Julien Gilbert is a 39 y.o. male on hospital day 7. The principal reason for today's follow up visit is Acute kidney injury superimposed on CKD (CMS-HCC). NAEMERLINE Pt felt well this AM. A&O x 4. Denied Chest pain, fevers/chills and SOB. Review of Systems (Focused) Negative except as mentioned above Medications Scheduled Meds: ciprofloxacin HCl 500 mg Oral Q24H folic acid 1 mg Oral Daily 0900 heparin 5,000 Units Subcutaneous 3 times per day lactulose 20 g Oral TID levothyroxine 75 mcg Oral QAM AC melatonin 3 mg Oral Nightly (2100) methocarbamoL 500 mg Oral TID midodrine 10 mg Oral TID pantoprazole 40 mg Oral QAM AC rifAXIMin 550 mg Oral BID sodium bicarbonate 1,300 mg Oral TID thiamine HCl 100 mg Oral Daily 0900 ursodioL 300 mg Oral BID zinc sulfate 220 mg Oral Daily 0900 Continuous Infusions: sodium chloride 0.9 % PRN Meds: acetaminophen, diphenhydrAMINE-zinc acetate, loratadine, metoprolol tartrate, oxyCODONE OR oxyCODONE Vital Signs Temp: [97.5 ??F (36.4 ??C)-98.3 ??F (36.8 ??C)] 97.9 ??F (36.6 ??C) Heart Rate: [79-93] 85 Resp: [14-18] 14 BP: (96-124)/(46-67) 96/46 Intake/Output Summary (Last 24 hours) at 10/12/2024 1249 Last data filed at 10/12/2024 0111 Gross per 24 hour Intake 880 ml Output 300 ml Net 580 ml Physical Exam Physical Exam Constitutional: Appearance: He is ill-appearing. He is not diaphoretic. HENT: Head: Normocephalic and atraumatic. Mouth/Throat: Mouth: Mucous membranes are moist. Pharynx: Oropharynx is clear. Eyes: General: Scleral icterus present. Extraocular Movements: Extraocular movements intact. Cardiovascular: Rate and Rhythm: Normal rate and regular rhythm. Pulses: Normal pulses. Pulmonary: Effort: Pulmonary effort is normal. Breath sounds: Normal breath sounds. Abdominal: General: There is distension. Tenderness: There is abdominal tenderness. Musculoskeletal: Cervical back: Tenderness present. Right lower leg: Edema present. Left lower leg: Edema present. Comments: 2+ edema Skin: General: Skin is dry. Coloration: Skin is jaundiced. Neurological: General: No focal deficit present. Mental Status: He is alert and oriented to person, place, and time. Cranial Nerves: Cranial nerves 2-12 are intact. No cranial nerve deficit. Motor: No weakness. Psychiatric: Mood and Affect: Mood normal. Behavior: Behavior normal. Thought Content: Thought content normal. Cognition and Memory: Cognition normal. Laboratory Data CBC 10/12/2024 \ 7.2 / 3.3 \ / 30 / \ / 19.7 \ Differential 09/16/2024 N 84.2 L 8.0 M 5.1 E 1.5 B 0.7 Renal 10/12/2024 135 109 52 / ___ __ / 121 \ 3.7 17 2.94 \ Ca 8.5 (10/12/2024) Mg 1.9 (10/12/2024) Phos 4.6 (10/12/2024) Lipids Lab Results Component Value Date CHOLTOT <25 10/07/2024 TRIG 30 10/07/2024 HDL 4 (L) 10/07/2024 LDL See Note 10/07/2024 LFTs 10/12/2024 \ 6.5 / \ 3.64 / 40 \ / / \ / 99 \ PT/INR/PTT - 10/12/2024 PT 25.7 INR 2.3 PTT No results found for requested labs within last 3600 days. Lab 10/06/24 1151 COLOR, URINE Yellow CLARITY Clear SPECIFIC GRAVITY, URINE 1.014 PH UA 6.0 PROTEIN UA Negative GLUCOSE UA Negative KETONES UA Negative BILIRUBIN UA Negative BLOOD UA Negative NITRITE UA Negative UROBILINOGEN UA <2.0 LEUKOCYTES UA Negative MELD 3.0: 35 at 10/12/2024 5:44 AM Calculated from: Serum Creatinine: 2.94 mg/dL at 10/12/2024 5:44 AM Serum Sodium: 135 mmol/L at 10/12/2024 5:44 AM Total Bilirubin: 6.5 mg/dL at 10/12/2024 5:44 AM Serum Albumin: 3.1 g/dL at 10/12/2024 5:44 AM INR(ratio): 2.3 at 10/12/2024 5:44 AM Age at listing (hypothetical): 39 years Sex: Male at 10/12/2024 5:44 AM No results found for: NTPROBNP Lab Results Component Value Date TSH 0.81 10/07/2024 FREET4 0.74 09/03/2024 Diagnostic Studies X-ray Mandible minimum 4-views Final Result IMPRESSION: 1. No acute osseous abnormality. Report Verified by: Diana Devlin MD at 10/08/2024 1:12 PM EDT US Duplex Ulk-Qrf-Ziqjkso Comp Final Result IMPRESSION: ABDOMEN 1. Cirrhotic liver morphology. No suspicious hepatic lesion. 2. Moderate volume of ascites. 3. Splenomegaly. LIVER DOPPLER 1. Patent hepatic vasculature with normal directional flow. 2. Recanalized umbilical vein as a sequela of portal hypertension, with multiple venous collateralsbordering the falciform ligament. Findings similar to prior. Report Verified by: Alberto Rodriguez MD at 10/07/2024 4:26 PM EDT US Abdomen Complete Final Result IMPRESSION: ABDOMEN 1. Cirrhotic liver morphology. No suspicious hepatic lesion. 2. Moderate volume of ascites. 3. Splenomegaly. LIVER DOPPLER 1. Patent hepatic vasculature with normal directional flow. 2. Recanalized umbilical vein as a sequela of portal hypertension, with multiple venous collateralsbordering the falciform ligament. Findings similar to prior. Report Verified by: Alberto Rodriguez MD at 10/07/2024 4:[address] Head WO contrast Final Result IMPRESSION: 1. No acute intracranial abnormality. 2. No intracranial mass effect or hemorrhage. Report Verified by: Sher Abrams MD at 10/06/2024 4:50 PM EDT X-ray Portable Chest Final Result IMPRESSION: Negative portable chest. Report Verified by: Eduardo Franks MD at 10/06/2024 2:33 AM EDT DXA bone density axial skeleton (Results Pending) Assessment & Plan Julien Gilbert is a 39 y.o. male on HD# 7 with Acute kidney injury superimposed on CKD (CMS-HCC). Themedical issues being addressed in today's encounter are as follows: Principal Problem: Acute kidney injury superimposed on CKD (CMS-HCC) Active Problems: Decompensated cirrhosis (CMS-HCC) Metabolic encephalopathy Thrombocytopenia (CMS-HCC) Renal mass, left Metabolic acidosis with normal anion gap and bicarbonate losses GERD (gastroesophageal reflux disease) Anemia SBP (spontaneous bacterial peritonitis) (CMS-HCC) Neck pain with history of cervical spinal surgery #Encephalopathy Pt noted to have waxing and waning encephalopathy at home over the last few days, initially suspected to be hyperammonemia by and patient, somewhat improved initially with lactulose; however encephalopathy subsequently worsened again. Notably, pt has a history of decompensated cirrhosis episodes including HRS and hepatic encephalopathy. Currently maintain high suspicion for toxic/metabolic encephalopathy in the setting of possible decompensated alcoholic cirrhosis. Continued to have diarrheal episodes despite completion of oral vancomycin for recent C. Diff. OSH labs with low bicarb to 17 and normal lactate, so will give consideration to ongoing C. Diff. - Ammonia level 10/06: 77 within normal range - Ethanol level, Tylenol level. Salicylate level 10/06: All Low, no concern for toxin-induced etiology at this time. - PETH labs - negative - COVID/Flu/RSV(-) - UA, Blood Cx 10/07: No growth to date - Continue home lactulose and rifaximin - Follow up OSH paracentesis studies, will continue CTX until report communicated -Report showed growth of Gram + rods, pt started on IV Vancomycin -10/10: GI able to connect with OSH lab this AM who stated that no growth from ascites. Vanc dced on10/10. CTX DCed after 10/11 dose. Now back to SBP Prophylaxis regimen, Cipro 500mg QDAY #Decompensated Alcoholic Cirrhosis #Transplant evaluation Pt abdomen non-acute. Does appear significantly jaundiced with scleral icterus. Bedside paracentesis performed at OSH. Concern for possible SBP but reassured by lack of fever and hemodynamically stable status. - MELD labs Daily - Hold home Cipro prophylaxis for SBP - Continue home Zinc - Continue home ursodiol - Hepatology consult placed, appreciate recs EGD on 10/09 - s/p 3 days of Albumin infusion -Pt did not tolerate Stress ECHO on 10/09 - LHC on Sunday10/13/24 - NPO @ [facility] on 10/12/24 -Per GI reccs, started on midodrine 10mg TID #Anemia Pt has recorded HgB of 6.9 on 10/08. Likely dilutional due to albumin treatment. S/p pRBC transfusion. - CTM #NAGMA, resolved Pt found to have a pH of 7.21 upon admission to , with a HCO3 18 and pCO2 41. Pt is Rx Bicarb tablets at home and has a known history of CKD. pH was improved 7.27 later in the morning. NAGMA likely due to GI loss due to lactulose and diuresis. -Continue home oral Bicarb #SBP Previously was previously on Cipro for SBP prophylaxis. Pt started on 2g of IV CTX at admission.. -Outside results obtained on 10/07 showed growth of Gram+ rods from most recent therapeutic paracentesis. -10/07: Started on IV Vancomycin based on results from outside facility. Ultimately cultures NGTD. Was transitioned back to home cipro ppx. #Aphasia (resolved) Patient appears to be unable to name objects when asked, but can readily follow commands. Additionally, pt is unable to verbally answer orientation questions. Authors was able to see pt is frustratedin his inability to verbally communicate. It appears that this waxes and wanes and could be attributed to his encephalopathy, though patient has never presented with this symptom and no head imaging has been performed at [facility]. -CT Head w/o contrast -Imaging showed no concern for acute etiology of aphasia. -Will CTM, most likely due to metabolic/toxic encephalopathy #H/o GI Bleed Pt with history of GI bleed in setting of gastric varices, for which IR at OSH had to place 17 coils. 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 - Has previously been on beta blockade for variceal prevention, but did not tolerate beta dominic due to hypotension. - s/p EGD 10/09 #Non-Oliguric NADIYA on CKD Patient noted on OSH labs to have creatinine of 3.6. Baseline creatinine appears to range 2.5-2.9. Per , pt makes urine and has never required dialysis. - Bladder Ultrasound and PVR - UA, urine lytes - Albumin challenge tonight given his NADIYA in setting of hepatic disease - Continue home bicarb tablets - Nephro consult, appreciate recs - Hold home diuretics - Strict I/O's - Workup for Kidney transplant to run concurrently with Liver transplant #h/o Left Sided RCC s/p cryoablation Cryoablation was done 2022. On CT A/P at OSH, pt noted to have persistent L sided exophytic renal mass. -renal consults and Renal Transplant team is following. Workup for Kidney transplant to run concurrently with eval for liver transplant #Hepatic Lesion of Unk etiology OSH CT A/P with iso-attenuating round nodular outpouching in inf R lobe measuring 3.6 x 3.8cm. Differential to include cyst vs metastatic RCC vs primary hepatic tumor - Hepatology consult, appreciate recs - Consider MRI inpatient #History of AUD - Continue home thiamine repletion - PETH and ETOH level as above #History of Cervical Fusion #Neck Pain -PRN Oxy Pain Meds -Robaxin TID #GERD - continue home protonix #HTN - Continue home #HLD #Hypothyroidism - continue home synthroid Nutrition: Diet/Nutrition Orders Diet NPO past midnight Except for: except sips with meds, for procedure Frequency: Effective Number of Occurrences: Until Specified Order Questions: Except for except sips with meds Except for for procedure Diet Regular(7) Frequency: Effective Now Number of Occurrences: Until Specified Order Questions: Suicide/Behavior Risk Modification? No Dietary nutrition supplements Frequency: TID Number of Occurrences: Until Specified Order Comments: Vanilla boost Order Questions: Select Supplement: Boost-1 kcal/ml supplement ([facility] only) Code Status: Full Code Signed: CHARI VANEGAS MD 10/12/2024, 12:49 PM Cosigned by Fouzia Rene MD at 10/12/2024 4:52 PM EDT Associated attestation - Fouzia Rene MD - 10/12/2024 4:52 PM EDT Internal Medicine Attending Supervision Note - Hospital Day# 7 The patient was seen today on rounds with the medical team. I have personally interviewed and performed the physical exam and medical decision making. I conducted an independent review of labs, procedures and imaging pertinent to today's encounter through the EMR. I reviewed the documentation by the medical steamtable attendant railroad and agree as documented. Any additions or clarifications are listed below. Daily plan was discussed with patient at bedside and questions addressed. Patient ID: Julien Gilbert is a 39 y.o. male currently admitted for Acute kidney injury superimposed on CKD ([facility]-HCC) Supplemental History/ ROS: No acute events overnight A little tired this AM Exam: Lying in bed, NAD + jaundice NCAT, EOMI, + scleral icterus RRR, no appreciable murmur Normal resp effort, lungs CTAB, bibasilar crackles +mild distention, soft, NT 1+ LE edema bilateral Labs and Imaging reviewed. MELD 3.0: 35 at 10/12/2024 5:44 AM Calculated from: Serum Creatinine: 2.94 mg/dL at 10/12/2024 5:44 AM Serum Sodium: 135 mmol/L at 10/12/2024 5:44 AM Total Bilirubin: 6.5 mg/dL at 10/12/2024 5:44 AM Serum Albumin: 3.1 g/dL at 10/12/2024 5:44 AM INR(ratio): 2.3 at 10/12/2024 5:44 AM Age at listing (hypothetical): 39 years Sex: Male at 10/12/2024 5:44 AM Medical Decision Making/ Assessment & Plan: Julien Gilbert is a 39 y.o. male with admitted for Acute kidney injury superimposed on CKD (CMS-HCC) Active Problems: NADIYA (acute kidney injury) on CKD (CMS-HCC): Hepatorenal syndrome. Appreciate nephrology consult. S/p albumin X3. baseline creatinine presumed to be around 2.5. Creatinine improved from its peak and may be now fluctuating around a new baseline. We will continue to monitor. Spontaneous Bacterial Peritonitis (CMS-HCC): He remains afebrile and vital signs have been stable. Received 4 days of vancomycin, Ceftriaxone x 5d. - Restart Cipro prophylaxis Anemia: Multiple contributors. S/p 1 unit PRBC. Hemoglobin responded appropriately and remained stable. Will continue to monitor. Metabolic encephalopathy: Resolved. Likely related to combination of hepatic, metabolic, and possibly infectious insults. - Continue home lactulose and rifaximin Decompensated cirrhosis (CMS-HCC): Appreciate hepatology consult. He has started his transplant evaluation and will continue while inpatient. - Continue lactulose, rifaximin, ursodiol, and midodrine - MELD labs daily - Continue home regimen with ursodiol, rifaximin and lactulose - Continue midodrine TID. - Requires therapeutic paracentesis frequently. Last on 10/10 (8L) - Stress test was non-diagnostic due to hypotension. Plan for [facility] tomorrow. - EGD completed. - Imaging requiring contrast are on hold until kidney function recovers some. Electrolyte derangements: Replete as needed Neck Pain: He has a history of cervical surgery. Continue oxycodone as needed for pain. Continue tomonitor. Principal Problem: Acute kidney injury superimposed on CKD (CMS-HCC) Active Problems: Decompensated cirrhosis (CMS-HCC) Metabolic encephalopathy Thrombocytopenia (CMS-HCC) Renal mass, left Metabolic acidosis with normal anion gap and bicarbonate losses GERD (gastroesophageal reflux disease) Anemia SBP (spontaneous bacterial peritonitis) ([facility]-HCC) Neck pain with history of cervical spinal surgery Continue management for other medical problems per resident / AI note. Disp: Anticipate DC home with spouse when medically ready. Consider d/c home after LHC on Sunday. FOUZIA RENE MD Attending Physician Department of Internal Medicine 10/12/2024 Medical Decision Making: // LEVEL 2 MOD One chronic illness with exacerbation, progression, or side effects of treatment Discussed with physician/SAWYER from another specialty or practice, other licensed professional (PT/OT/FLIGHT SURVEYOR/RT), or a non-medical community professional: Nephrology, Hepatology Labs reviewed (1 pt each): CBC, CMP, INR & other daily labs Review of notes from a different specialty or different practice: Nephrology, Cardiology, hepatology * Shay Phillips MD - 10/12/2024 9:03 AM EDT Images from the original note were not included. Department of Internal Medicine Nephrology & Hypertension Consult History & Physical Note Patient: Julien Gilbert Date of Admit: 10/05/2024 Referring physician: Fouzia Rene MD Interval hx Cr is slightly worsening. Pt states he feels okay. No big overnight events. Assessment: Renal Function: Cr: 2.94 Bun: 52 on 10/12/2024 NADIYA on CKD, last discharge creatinine 2.4 Baseline Creatinine 1.2-1.3, Etiology of CKD presumed pre-renal state NADIYA HRS- NADIYA UA bland Urine lytes <10/< 15/ 50 Recent admission in August with NADIYA in context of decompensated cirrhosis treated in the lines of HRS. Electrolytes: Na: 135 K: 3.7 Cl: 109 Ma.9 Ca: 8.5 Phos: 4.6 Hyponatremia Acid Base Status: Anion Gap: 9 Bicarb: 17 NAGMA Hypertension/CVS: BP: 101/50 Goal <130/80 Volume Status: Mineral Bone Disease: Ca: 8.5 PO4: 4.6 Alb: 3.1; 3.1 PTH: No results found for requested labs within last 3600 days. on No results found for requested labs within last 3600 days. Vit D: 7.1 on 10/08/2024 No current issues Anemia of CKD: Hgb 7.2 Hct 19.7 Plt 30 Iron 81 on 10/08/2024 Ferritin 706.9 on 10/08/2024 TIBC: SEE COMMENT on 10/08/2024 Haptoglobin: <30 on 10/08/2024 LDH: 102 on 10/08/2024 Anemia Plan: NADIYA on CKD , baseline last , likely HRS, likely triggered by recent paracentesis and diarrhea, recent cr around 2.4, improved but now worsening again, likely due to underlying hepatorenal physiology Not a candidate for terlipressin per liver due to HE, liver and kidney failure, on midodrine tid. cardiac workup pre txp. pLan for [facility] Sunday Liver transplant workup per GI/ Primary team, considering for SLK, seen by renal transplant team, not a candidate for kidney txp as of now. Will reach 90 day mayco at October 22, can consider re evaluation by transplant team if still here after that date Thank you for allowing us to participate in this patient's care. Discussed with Consult Staff. Shay Phillips MD PGY-4 . Feel free to call/text Nephrology Fellow Chief Complaint No chief complaint on file. Reason for Consult Nadiya on CKD Decompensated cirrhosis History of Present Illness Julien Gilbert is a 39 y.o. y/o male past medical history of decompensated cirrhosis due to alcohol abuse with admitted varices, HRS ascites, hepatic encephalopathy being worked up for liver transplanthypothyroidism CKD baseline 2.5-2.9 , left-sided RCC status post ablation, small right kidney? Who presented with altered mental status and weakness since Sunday. Nephrology consulted for NADIYA on CKD, concern for hepatorenal syndrome.` Patient came from [facility], paracentesis was performed yesterday on 10/05? Fluid pending for SBP analysis Histories he has a past medical history [...] reports current drug use. Drug: Marijuana. Allergies[1] Medications: Home Medications: Home Medications Medication Sig Taking? Last Dose ciprofloxacin HCl (CIPRO) 500 MG tablet Take 1 tablet (500 mg total) by mouth daily. Yes Past Week folic acid (FOLVITE) 1 MG tablet Take 1 tablet (1 mg total) by mouth daily. Yes Past Week lactulose (CHRONULAC) 10 gram/15 mL solution Take 30 mLs (20 g total) by mouth 3 times a day as needed (goal 2-3 bowel movements a day). Yes 10/05/2024 Morning levothyroxine (SYNTHROID) 75 MCG tablet Take 1 tablet (75 mcg total) by mouth every morning before breakfast. Yes 10/05/2024 pantoprazole (PROTONIX) 40 MG tablet Take 1 tablet (40 mg total) by mouth every morning before breakfast. Yes Past Week potassium chloride (KLOR-CON M20) 20 MEQ tablet Take 2 tablets (40 mEq total) by mouth daily. Yes Past Week rifAXIMin (XIFAXAN) 550 mg Tab tablet Take 1 tablet (550 mg total) by mouth 2 times a day. Yes 10/05/2024 Morning sodium bicarbonate 650 MG tablet Take 2 tablets (1,300 mg total) by mouth 3 times a day. Yes 10/05/2024 Morning thiamine HCl (VITAMIN B-1) 100 MG tablet Take 1 tablet (100 mg total) by mouth daily. Yes Past Week traMADoL (ULTRAM) 50 mg tablet Take 1 tablet (50 mg total) by mouth every 12 hours as needed for Pain (Pain). Yes Past Week ursodioL (ACTIGALL) 300 mg capsule Take 1 capsule (300 mg total) by mouth 2 times a day. Yes 10/05/2024 Morning zinc sulfate (ZINCATE) 50 mg zinc (220 mg) capsule Take 1 capsule (220 mg total) by mouth daily. Yes Past Week Inpatient Meds: ciprofloxacin HCl 500 mg Oral Q24H folic acid 1 mg Oral Daily 0900 heparin 5,000 Units Subcutaneous 3 times per day lactulose 20 g Oral TID levothyroxine 75 mcg Oral QAM AC magnesium sulfate 1 g Intravenous Once melatonin 3 mg Oral Nightly (2100) methocarbamoL 500 mg Oral TID midodrine 10 mg Oral TID pantoprazole 40 mg Oral QAM AC rifAXIMin 550 mg Oral BID sodium bicarbonate 1,300 mg Oral TID thiamine HCl 100 mg Oral Daily 0900 ursodioL 300 mg Oral BID zinc sulfate 220 mg Oral Daily 0900 Continuous Infusions: sodium chloride 0.9 % PRN medications: acetaminophen, diphenhydrAMINE-zinc acetate, loratadine, metoprolol tartrate, oxyCODONE OR oxyCODONE Physical Exam Patient Vitals for the past 4 hrs: BP Temp Temp src Pulse Resp SpO2 10/12/24 0830 101/50 98.3 ??F (36.8 ??C) Oral 90 16 100 % Wt Readings from Last 3 Encounters: 10/10/24 (!) 263 lb 8 oz (119.5 kg) 09/05/24 (!) 262 lb 9.6 oz (119.1 kg) 09/02/24 (!) 258 lb (117 kg) Intake/Output Summary (Last 24 hours) at 10/12/2024 0903 Last data filed at 10/12/2024 0111 Gross per 24 hour Intake 880 ml Output 300 ml Net 580 ml General appearance: NAD Lungs: No RD, CTA b/l Heart: RRR Abdomen: distended, non tender Extremities: no leg edema Skin: No rashes/lesions noted, no skin tears Psych: lethargic, but answering appropriately Laboratory Data and Imaging Recent Labs 10/10/2452210/11/24 03010/12/24 0544 WBC 5.1 4.0 3.3* HGB 7.3* 7.7* 7.2* HCT 20.6* 21.2* 19.7* MCV 101.2* 100.5* 101.2* PLT 39* 32* 30* Recent Labs 10/10/2452210/11/24 0302 10/12/24 0544 NA 135 134 135 K 3.6 3.6 3.7 CL 108 108 109 CO2 17* 16* 17* BUN 53* 49* 52* CREATININE 2.85* 2.77* 2.94* GLUCOSE 113* 112* 121* CALCIUM 9.0 8.9 8.5* MG 1.9 2.0 1.9 PHOS 3.3 3.5 4.6 ANIONGAP 10 10 9 ALBUMIN 3.3* 3.3* 3.3* 3.3* 3.1* 3.1* Recent Labs 10/10/24 0523 10/11/24 0302 10/12/24 0544 CALCIUM 9.0 8.9 8.5* PHOS 3.3 3.5 4.6 Lab Results Component Value Date IRON 81 10/08/2024 TIBC SEE COMMENT 10/08/2024 FERRITIN 706.9 (H) 10/08/2024 No results found for: [id number] , FOLATE Lab Results Component Value Date COLORU Yellow 10/06/2024 CLARITYU Clear 10/06/2024 PROTEINUA Negative 10/06/2024 PHUR 6.0 10/06/2024 LABSPEC 1.014 10/06/2024 GLUCOSEU Negative 10/06/2024 BLOODU Negative 10/06/2024 LEUKOCYTESUR Negative 10/06/2024 NITRITE Negative 10/06/2024 BILIRUBINUR Negative 10/06/2024 UROBILINOGEN <2.0 10/06/2024 RBCUA 1 09/03/2024 WBCUA 1 09/03/2024 BACTERIA Occasional (A) 09/03/2024 No results for input(s): NAUR , KUR , CLUR in the last 72 hours. Invalid input(s): CO2UR , CRUR No results found for: MICROALBUR , [id number] In addition to the above an extensive amount of complex data in the patients lab and chart were reviewed. Diagnostic Imaging Reviewed in EMR. This note was copied forward from previously composed documentation. I have reviewed and updated the history, review of systems, physical exam, data, assessment and plan of the note so that it reflects the evaluation and management of the patient on 10/12/2024. [1] Allergies Allergen Reactions Adhesive Itching and Rash Tegaderm adhesive on Ivs, pt states its tolerable Duloxetine Other (See Comments) Became Manic Cosigned by Colten Huertas MD at 10/12/2024 4:39 PM EDT Associated attestation - Colten Huertas MD - 10/12/2024 4:39 PM EDT ATTESTATION I saw Mr/Ms Julien Gilbert with renal fellow / consult team I went through all the events leading to hospitalization, primary teams notes, pertinent laboratorywork up, history and physical examination. I agree with the documentation and plan mentioned in thenote by the fellow. I was present at the time of exam and history taking. DOS 10/12/2024 Julien Gilbert is a 39 y.o. male with has a past medical history of Alcoholic cirrhosis of liver (CMS-HCC), Alcoholic hepatitis, Esophageal varices (CMS-HCC), Hepatorenal syndrome (CMS-HCC), Hypertension, Other hyperlipidemia (07/26/2024), Renal cell carcinoma (CMS-HCC), Thrombocytopenia (CMS-HCC), and Thyroid disease. who presents for NADIYA in the context of his liver disease My additional comments are as follow: Labs reviewed No new issues FOCUSED PHYSICAL EXAM Vitals: 10/12/24 1547 BP: 117/59 Pulse: 88 Resp: 18 Temp: 97.3 ??F (36.3 ??C) SpO2: 100% Focused clinical examination was conducted today Patient is clinically euvolemic 1+ pedal edema Chest sounds clear Heart sounds are normal Gross neurological system exam unremarkable Abdo distended No asterixis PERTINENT LABS Anemia Lab Results Component Value Date WBC 3.3 (L) 10/12/2024 HGB 7.2 (L) 10/12/2024 HCT 19.7 (L) 10/12/2024 MCV 101.2 (H) 10/12/2024 PLT 30 (L) 10/12/2024 Lab Results Component Value Date IRON 81 10/08/2024 TIBC SEE COMMENT 10/08/2024 FERRITIN 706.9 (H) 10/08/2024 Acidosis/Electrolytes Lab Results Component Value Date CREATININE 2.94 (H) 10/12/2024 BUN 52 (H) 10/12/2024 NA 135 10/12/2024 K 3.7 10/12/2024 CL 109 10/12/2024 CO2 17 (L) 10/12/2024 CKD MBD Lab Results Component Value Date CALCIUM 8.5 (L) 10/12/2024 PHOS 4.6 10/12/2024 Lab Results Component Value Date [id number] 7.1 (L) 10/08/2024 PLAN Monitor renal panel No indication for dialysis Pt seen by TxP neph for SLK assessment -not a candidate for kidney transplant yet Patient is being worked up for liver transplant Will continue to monitor renal panel closely Left heart cath planned for Sunday Patient is aware about implications of contrast on his pre-existing kidney dysfunction MELD 3.0: 35 at 10/12/2024 5:44 AM Calculated from: Serum Creatinine: 2.94 mg/dL at 10/12/2024 5:44 AM Serum Sodium: 135 mmol/L at 10/12/2024 5:44 AM Total Bilirubin: 6.5 mg/dL at 10/12/2024 5:44 AM Serum Albumin: 3.1 g/dL at 10/12/2024 5:44 AM INR(ratio): 2.3 at 10/12/2024 5:44 AM Age at listing (hypothetical): 39 years Sex: Male at 10/12/2024 5:44 AM Colten Huertas MD, KISHOR LIN FNKF folded cloth taper Div. of Nephrology [facility] E-mail: [email or web address] This note was completely edited, written and [...] my current evaluation and management for this patient which was performed on 10/12/2024 * Shay Phillips MD - 10/11/2024 1:51 PM EDT Images from the original note were not included. Department of Internal Medicine Nephrology & Hypertension Consult History & Physical Note Patient: Julien Gilbert Date of Admit: 10/05/2024 Referring physician: Fouzia Rene MD Interval hx No issues. Pending [facility]. Assessment: Renal Function: Cr: 2.77 Bun: 49 on 10/11/2024 NADIYA on CKD, last discharge creatinine 2.4 Baseline Creatinine 1.2-1.3, Etiology of CKD presumed pre-renal state NADIYA HRS- NADIYA UA bland Urine lytes <10/< 15/ 50 Recent admission in August with NADIYA in context of decompensated cirrhosis treated in the lines of HRS. Electrolytes: Na: 134 K: 3.6 Cl: 108 Ma.0 Ca: 8.9 Phos: 3.5 Hyponatremia Acid Base Status: Anion Gap: 10 Bicarb: 16 NAGMA Hypertension/CVS: BP: 111/57 Goal <130/80 Volume Status: Mineral Bone Disease: Ca: 8.9 PO4: 3.5 Alb: 3.3; 3.3 PTH: No results found for requested labs within last 3600 days. on No results found for requested labs within last 3600 days. Vit D: 7.1 on 10/08/2024 No current issues Anemia of CKD: Hgb 7.7 Hct 21.2 Plt 32 Iron 81 on 10/08/2024 Ferritin 706.9 on 10/08/2024 TIBC: SEE COMMENT on 10/08/2024 Haptoglobin: <30 on 10/08/2024 LDH: 102 on 10/08/2024 Anemia Plan: NADIYA on CKD , baseline last , likely HRS, likely triggered by recent paracentesis and diarrhea, recent cr around 2.4, now stable 3. Not a candidate for terlipressin per liver due to HE, liver and kidney failure, on midodrine tid. cardiac workup pre txp. pLan for C Sunday 4. Liver transplant workup per GI/ Primary team, considering for SLK, seen by renal transplant team, not a candidate for kidney txp as of now 5. Evaluation of renal mass per urology Thank you for allowing us to participate in this patient's care. Discussed with Consult Staff. Shay Phillips MD PGY-4 . Feel free to call/text Nephrology Fellow Chief Complaint No chief complaint on file. Reason for Consult Nadiya on CKD Decompensated cirrhosis History of Present Illness Julien Gilbert is a 39 y.o. y/o male past medical history of decompensated cirrhosis due to alcohol abuse with admitted varices, HRS ascites, hepatic encephalopathy being worked up for liver transplanthypothyroidism CKD baseline 2.5-2.9 , left-sided RCC status post ablation, small right kidney? Who presented with altered mental status and weakness since Sunday. Nephrology consulted for NADIYA on CKD, concern for hepatorenal syndrome.` Patient came from [facility], paracentesis was performed yesterday on 10/05? Fluid pending for SBP analysis Histories he has a past medical history [...] reports current drug use. Drug: Marijuana. Allergies[1] Medications: Home Medications: Home Medications Medication Sig Taking? Last Dose ciprofloxacin HCl (CIPRO) 500 MG tablet Take 1 tablet (500 mg total) by mouth daily. Yes Past Week folic acid (FOLVITE) 1 MG tablet Take 1 tablet (1 mg total) by mouth daily. Yes Past Week lactulose (CHRONULAC) 10 gram/15 mL solution Take 30 mLs (20 g total) by mouth 3 times a day as needed (goal 2-3 bowel movements a day). Yes 10/05/2024 Morning levothyroxine (SYNTHROID) 75 MCG tablet Take 1 tablet (75 mcg total) by mouth every morning before breakfast. Yes 10/05/2024 pantoprazole (PROTONIX) 40 MG tablet Take 1 tablet (40 mg total) by mouth every morning before breakfast. Yes Past Week potassium chloride (KLOR-CON M20) 20 MEQ tablet Take 2 tablets (40 mEq total) by mouth daily. Yes Past Week rifAXIMin (XIFAXAN) 550 mg Tab tablet Take 1 tablet (550 mg total) by mouth 2 times a day. Yes 10/05/2024 Morning sodium bicarbonate 650 MG tablet Take 2 tablets (1,300 mg total) by mouth 3 times a day. Yes 10/05/2024 Morning thiamine HCl (VITAMIN B-1) 100 MG tablet Take 1 tablet (100 mg total) by mouth daily. Yes Past Week traMADoL (ULTRAM) 50 mg tablet Take 1 tablet (50 mg total) by mouth every 12 hours as needed for Pain (Pain). Yes Past Week ursodioL (ACTIGALL) 300 mg capsule Take 1 capsule (300 mg total) by mouth 2 times a day. Yes 10/05/2024 Morning zinc sulfate (ZINCATE) 50 mg zinc (220 mg) capsule Take 1 capsule (220 mg total) by mouth daily. Yes Past Week Inpatient Meds: [START ON 10/12/2024] ciprofloxacin HCl 500 mg Oral Q24H folic acid 1 mg Oral Daily 0900 heparin 5,000 Units Subcutaneous 3 times per day lactulose 20 g Oral TID levothyroxine 75 mcg Oral QAM AC melatonin 3 mg Oral Nightly (2100) methocarbamoL 500 mg Oral TID midodrine 10 mg Oral TID pantoprazole 40 mg Oral QAM AC rifAXIMin 550 mg Oral BID sodium bicarbonate 1,300 mg Oral TID thiamine HCl 100 mg Oral Daily 0900 ursodioL 300 mg Oral BID zinc sulfate 220 mg Oral Daily 0900 Continuous Infusions: sodium chloride 0.9 % PRN medications: acetaminophen, diphenhydrAMINE-zinc acetate, loratadine, metoprolol tartrate, oxyCODONE OR oxyCODONE Physical Exam Patient Vitals for the past 4 hrs: BP Temp Temp src Pulse Resp SpO2 10/11/24 1259 -- -- -- 79 -- 100 % 10/11/24 1255 111/57 97.5 ??F (36.4 ??C) Axillary 84 17 100 % Wt Readings from Last 3 Encounters: 10/10/24 (!) 263 lb 8 oz (119.5 kg) 09/05/24 (!) 262 lb 9.6 oz (119.1 kg) 09/02/24 (!) 258 lb (117 kg) Intake/Output Summary (Last 24 hours) at 10/11/2024 1351 Last data filed at 10/11/2024 0121 Gross per 24 hour Intake 1860 ml Output 700 ml Net 1160 ml General appearance: NAD Lungs: No RD, CTA b/l Heart: RRR Abdomen: distended, non tender Extremities: no leg edema Skin: No rashes/lesions noted, no skin tears Psych: lethargic, but answering appropriately Laboratory Data and Imaging Recent Labs 10/09/24 0459 10/10/24 0523 10/11/24 0302 WBC 4.6 5.1 4.0 HGB 8.0* 7.3* 7.7* HCT 21.8* 20.6* 21.2* MCV 100.5* 101.2* 100.5* PLT 36* 39* 32* Recent Labs 10/09/24 0459 10/09/24 0814 10/09/24 1305 10/10/24 0523 10/11/24 0302 NA 134 < > 134 135 134 K 3.3* < > 3.7 3.6 3.6 CL 107 < > 105 108 108 CO2 16* < > 17* 17* 16* BUN 56* < > 53* 53* 49* CREATININE 2.98* < > 2.89* 2.85* 2.77* GLUCOSE 112* < > 108* 113* 112* CALCIUM 9.0 < > 9.3 9.0 8.9 MG 1.8 -- -- 1.9 2.0 PHOS 3.5 < > 3.4 3.3 3.5 ANIONGAP 11 < > 12 10 10 ALBUMIN 3.4* 3.4* < > 3.6 3.3* 3.3* 3.3* 3.3* < > = values in this interval not displayed. Recent Labs 10/09/24 1305 10/10/24 0523 10/11/24 0302 CALCIUM 9.3 9.0 8.9 PHOS 3.4 3.3 3.5 Lab Results Component Value Date IRON 81 10/08/2024 TIBC SEE COMMENT 10/08/2024 FERRITIN 706.9 (H) 10/08/2024 No results found for: [id number] , FOLATE Lab Results Component Value Date COLORU Yellow 10/06/2024 CLARITYU Clear 10/06/2024 PROTEINUA Negative 10/06/2024 PHUR 6.0 10/06/2024 LABSPEC 1.014 10/06/2024 GLUCOSEU Negative 10/06/2024 BLOODU Negative 10/06/2024 LEUKOCYTESUR Negative 10/06/2024 NITRITE Negative 10/06/2024 BILIRUBINUR Negative 10/06/2024 UROBILINOGEN <2.0 10/06/2024 RBCUA 1 09/03/2024 WBCUA 1 09/03/2024 BACTERIA Occasional (A) 09/03/2024 No results for input(s): NAISAAC VASQUEZ CLUR in the last 72 hours. Invalid input(s): CO2UR , CRUR No results found for: MICROALSERGIO , [id number] In addition to the above an extensive amount of complex data in the patients lab and chart were reviewed. Diagnostic Imaging Reviewed in EMR. This note was copied forward from previously composed documentation. I have reviewed and updated the history, review of systems, physical exam, data, assessment and plan of the note so that it reflects the evaluation and management of the patient on 10/11/2024. [1] Allergies Allergen Reactions Adhesive Itching and Rash Tegaderm adhesive on Ivs, pt states its tolerable Duloxetine Other (See Comments) Became Manic Cosigned by Colten Huertas MD at 10/11/2024 4:11 PM EDT Associated attestation - Colten Huertas MD - 10/11/2024 4:11 PM EDT ATTESTATION I saw Mr/Ms Julien Gilbert with renal fellow / consult team I went through all the events leading to hospitalization, primary teams notes, pertinent laboratorywork up, history and physical examination. I agree with the documentation and plan mentioned in thenote by the fellow. I was present at the time of exam and history taking. DOS 10/11/2024 Julien Gilbert is a 39 y.o. male with has a past medical history of Alcoholic cirrhosis of liver (CMS-HCC), Alcoholic hepatitis, Esophageal varices (CMS-HCC), Hepatorenal syndrome (CMS-HCC), Hypertension, Other hyperlipidemia (07/26/2024), Renal cell carcinoma (CMS-HCC), Thrombocytopenia (CMS-HCC), and Thyroid disease. who presents for NADIYA in the context of his liver disease My additional comments are as follow: Labs reviewed marginal improvement in serum creatinine Underwent paracentesis On 4 L of fluid removed FOCUSED PHYSICAL EXAM Vitals: 10/11/24 1538 BP: 109/67 Pulse: 84 Resp: 16 Temp: 97.7 ??F (36.5 ??C) SpO2: 100% Focused clinical examination was conducted today Patient is clinically euvolemic 1+ pedal edema Chest sounds clear Heart sounds are normal Gross neurological system exam unremarkable Abdo distended No asterixis PERTINENT LABS Anemia Lab Results Component Value Date WBC 4.0 10/11/2024 HGB 7.7 (L) 10/11/2024 HCT 21.2 (L) 10/11/2024 MCV 100.5 (H) 10/11/2024 PLT 32 (L) 10/11/2024 Lab Results Component Value Date IRON 81 10/08/2024 TIBC SEE COMMENT 10/08/2024 FERRITIN 706.9 (H) 10/08/2024 Acidosis/Electrolytes Lab Results Component Value Date CREATININE 2.77 (H) 10/11/2024 BUN 49 (H) 10/11/2024 NA 134 10/11/2024 K 3.6 10/11/2024 CL 108 10/11/2024 CO2 16 (L) 10/11/2024 CKD MBD Lab Results Component Value Date CALCIUM 8.9 10/11/2024 PHOS 3.5 10/11/2024 Lab Results Component Value Date QMBX11S 7.1 (L) 10/08/2024 PLAN Monitor renal panel No indication for dialysis Pt seen by [facility] for SLK assessment -not a candidate for kidney transplant yet Patient is being worked up for liver transplant Will continue to monitor renal panel closely Left heart cath planned for Sunday Patient is aware about implications of contrast on his pre-existing kidney dysfunction MELD 3.0: 35 at 10/11/2024 3:02 AM Calculated from: Serum Creatinine: 2.77 mg/dL at 10/11/2024 3:02 AM Serum Sodium: 134 mmol/L at 10/11/2024 3:02 AM Total Bilirubin: 7.3 mg/dL at 10/11/2024 3:02 AM Serum Albumin: 3.3 g/dL at 10/11/2024 3:02 AM INR(ratio): 2.4 at 10/11/2024 3:02 AM Age at listing (hypothetical): 39 years Sex: Male at 10/11/2024 3:02 AM Colten Huertas MD, DELIA, KISHOR, FNKF folded cloth taper Div. of Nephrology [facility] E-mail: [email or web address] This note was completely edited, written and [...] my current evaluation and management for this patient which was performed on 10/11/2024 * Chari Vanegas MD - 10/11/2024 11:49 AM EDT Department of Internal Medicine Daily Progress Note Chief Complaint / Reason for Follow-Up Julien Gilbert is a 39 y.o. male on hospital day 6. The principal reason for today's follow up visit is Acute kidney injury superimposed on CKD ([facility]-HCC). NAEON Pt felt much better today. A&O x 4. Denied Chest pain, fevers/chills and SOB. No issues with paracentesis yesterday. Review of Systems (Focused) Negative except as mentioned above Medications Scheduled Meds: cefTRIAXone (ROCEPHIN) IVPB 2 g Intravenous Q24H [START ON 10/12/2024] ciprofloxacin HCl 500 mg Oral Q24H folic acid 1 mg Oral Daily 0900 heparin 5,000 Units Subcutaneous 3 times per day lactulose 20 g Oral TID levothyroxine 75 mcg Oral QAM AC melatonin 3 mg Oral Nightly (2100) methocarbamoL 500 mg Oral TID midodrine 10 mg Oral TID pantoprazole 40 mg Oral QAM AC rifAXIMin 550 mg Oral BID sodium bicarbonate 1,300 mg Oral TID thiamine HCl 100 mg Oral Daily 0900 ursodioL 300 mg Oral BID zinc sulfate 220 mg Oral Daily 0900 Continuous Infusions: sodium chloride 0.9 % PRN Meds: acetaminophen, diphenhydrAMINE-zinc acetate, loratadine, metoprolol tartrate, oxyCODONE OR oxyCODONE Vital Signs Temp: [97.5 ??F (36.4 ??C)-97.8 ??F (36.6 ??C)] 97.7 ??F (36.5 ??C) Heart Rate: [86-96] 86 Resp: [14-17] 16 BP: (94-123)/(41-62) 102/50 Intake/Output Summary (Last 24 hours) at 10/11/2024 1156 Last data filed at 10/11/2024 0121 Gross per 24 hour Intake 2310 ml Output 700 ml Net 1610 ml Physical Exam Physical Exam Constitutional: Appearance: He is ill-appearing. He is not diaphoretic. HENT: Head: Normocephalic and atraumatic. Mouth/Throat: Mouth: Mucous membranes are moist. Pharynx: Oropharynx is clear. Eyes: General: Scleral icterus present. Extraocular Movements: Extraocular movements intact. Cardiovascular: Rate and Rhythm: Normal rate and regular rhythm. Pulses: Normal pulses. Pulmonary: Effort: Pulmonary effort is normal. Breath sounds: Normal breath sounds. Abdominal: General: There is distension. Tenderness: There is abdominal tenderness. Musculoskeletal: Cervical back: Tenderness present. Right lower leg: Edema present. Left lower leg: Edema present. Comments: 2+ edema Skin: General: Skin is dry. Coloration: Skin is jaundiced. Neurological: General: No focal deficit present. Mental Status: He is alert and oriented to person, place, and time. Cranial Nerves: Cranial nerves 2-12 are intact. No cranial nerve deficit. Motor: No weakness. Psychiatric: Mood and Affect: Mood normal. Behavior: Behavior normal. Thought Content: Thought content normal. Cognition and Memory: Cognition normal. Laboratory Data CBC 10/11/2024 \ 7.7 / 4.0 \ / 32 / \ / 21.2 \ Differential 09/16/2024 N 84.2 L 8.0 M 5.1 E 1.5 B 0.7 Renal 10/11/2024 134 108 49 / ___ __ / 112 \ 3.6 16 2.77 \ Ca 8.9 (10/11/2024) Mg 2.0 (10/11/2024) Phos 3.5 (10/11/2024) Lipids Lab Results Component Value Date CHOLTOT <25 10/07/2024 TRIG 30 10/07/2024 HDL 4 (L) 10/07/2024 LDL See Note 10/07/2024 LFTs 10/11/2024 \ 7.3 / \ 3.85 / 39 \ / 20 / \ PT/INR/PTT - 10/11/2024 PT 26.8 INR 2.4 PTT No results found for requested labs within last 3600 days. Lab 10/06/24 1151 COLOR, URINE Yellow CLARITY Clear SPECIFIC GRAVITY, URINE 1.014 PH UA 6.0 PROTEIN UA Negative GLUCOSE UA Negative KETONES UA Negative BILIRUBIN UA Negative BLOOD UA Negative NITRITE UA Negative UROBILINOGEN UA <2.0 LEUKOCYTES UA Negative MELD 3.0: 35 at 10/11/2024 3:02 AM Calculated from: Serum Creatinine: 2.77 mg/dL at 10/11/2024 3:02 AM Serum Sodium: 134 mmol/L at 10/11/2024 3:02 AM Total Bilirubin: 7.3 mg/dL at 10/11/2024 3:02 AM Serum Albumin: 3.3 g/dL at 10/11/2024 3:02 AM INR(ratio): 2.4 at 10/11/2024 3:02 AM Age at listing (hypothetical): 39 years Sex: Male at 10/11/2024 3:02 AM No results found for: NTPROBNP Lab Results Component Value Date TSH 0.81 10/07/2024 FREET4 0.74 09/03/2024 Diagnostic Studies X-ray Mandible minimum 4-views Final Result IMPRESSION: 1. No acute osseous abnormality. Report Verified by: Diana Devlin MD at 10/08/2024 1:12 PM EDT US Duplex Eus-Bky-Qgycvsy Comp Final Result IMPRESSION: ABDOMEN 1. Cirrhotic liver morphology. No suspicious hepatic lesion. 2. Moderate volume of ascites. 3. Splenomegaly. LIVER DOPPLER 1. Patent hepatic vasculature with normal directional flow. 2. Recanalized umbilical vein as a sequela of portal hypertension, with multiple venous collateralsbordering the falciform ligament. Findings similar to prior. Report Verified by: Alberto Rordiguez MD at 10/07/2024 4:26 PM EDT US Abdomen Complete Final Result IMPRESSION: ABDOMEN 1. Cirrhotic liver morphology. No suspicious hepatic lesion. 2. Moderate volume of ascites. 3. Splenomegaly. LIVER DOPPLER 1. Patent hepatic vasculature with normal directional flow. 2. Recanalized umbilical vein as a sequela of portal hypertension, with multiple venous collateralsbordering the falciform ligament. Findings similar to prior. Report Verified by: Alberto Rodriguez MD at 10/07/2024 4:[address] Head WO contrast Final Result IMPRESSION: 1. No acute intracranial abnormality. 2. No intracranial mass effect or hemorrhage. Report Verified by: Sher Abrams MD at 10/06/2024 4:50 PM EDT X-ray Portable Chest Final Result IMPRESSION: Negative portable chest. Report Verified by: Eduardo Franks MD at 10/06/2024 2:33 AM EDT DXA bone density axial skeleton (Results Pending) Assessment & Plan Julien Gilbert is a 39 y.o. male on HD# 6 with Acute kidney injury superimposed on CKD (CMS-HCC). Themedical issues being addressed in today's encounter are as follows: Principal Problem: Acute kidney injury superimposed on CKD (CMS-HCC) Active Problems: Decompensated cirrhosis (CMS-HCC) Metabolic encephalopathy Thrombocytopenia (CMS-HCC) Renal mass, left Metabolic acidosis with normal anion gap and bicarbonate losses GERD (gastroesophageal reflux disease) Anemia SBP (spontaneous bacterial peritonitis) (CMS-HCC) Neck pain with history of cervical spinal surgery #Encephalopathy Pt noted to have waxing and waning encephalopathy at home over the last few days, initially suspected to be hyperammonemia by and patient, somewhat improved initially with lactulose; however encephalopathy subsequently worsened again. Notably, pt has a history of decompensated cirrhosis episodes including HRS and hepatic encephalopathy. Currently maintain high suspicion for toxic/metabolic encephalopathy in the setting of possible decompensated alcoholic cirrhosis. Continued to have diarrheal episodes despite completion of oral vancomycin for recent C. Diff. OSH labs with low bicarb to 17 and normal lactate, so will give consideration to ongoing C. Diff. - Ammonia level 10/06: 77 within normal range - Ethanol level, Tylenol level. Salicylate level -10/06: All Low, no concern for toxin-induced etiology at this time. - PETH labs - negative - COVID/Flu/RSV(-) - UA, Blood Cx 10/07: No growth to date - Continue home lactulose and rifaximin - Follow up OSH paracentesis studies, will continue CTX until report communicated -Report showed growth of Gram + rods, pt started on IV Vancomycin -10/10: GI able to connect with OSH lab this AM who stated that no growth from ascites. Vanc dced on10/10. CTX to DC after 10/11 dose. Then transtion back to SBP Prophylaxis regimen, Cipro 500mg QDAY #Decompensated Alcoholic Cirrhosis #Transplant evaluation Pt abdomen non-acute. Does appear significantly jaundiced with scleral icterus. Bedside paracentesis performed at OSH. Concern for possible SBP but reassured by lack of fever and hemodynamically stable status. - MELD labs Daily - Hepatitis Screening - RUQ Ultrasound with Doppler to evaluate for Portal Vein Thrombosis - Hold home Cipro prophylaxis for SBP - Continue home Zinc - Continue home ursodiol - Asked for paracentesis studies to be sent from OSH for review Growing gram + cocci. Vanc added to IV Abx Regimen - Hepatology consult placed, appreciate recs EGD on 10/09, NPO at midnight. - Scheduled for 3 days of Albumin infusion Completed on 10/07 -GI planning for a Paracentesis this week, likely to occur after EGD is performed. 10/10: IR consulted to aid in paracentesis. Thankful for their guidance and expertise in care of this patient. -Pt did not tolerate Stress ECHO on 10/09 - LHC on Sunday10/13/24 - NPO @ [facility] on 10/12/24 -Per GI reccs, started on midodrine 10mg TID #Anemia Pt has recorded HgB of 6.9 on 10/08. Likely dilutional due to albumin treatment. Plan to transfuse and order hemolysis labs due to know liver dysfunction. -Retic, LDH, & Haptoglobin labs orders -Consent to transfuse, Type and Screen orders -1u of pRBCs to be transfused with post-transfusion CBC ordered. HgB of 8.3 #NAGMA, resolved Pt found to have a pH of 7.21 upon admission to , with a HCO3 18 and pCO2 41. Pt is Rx Bicarb tablets at home and has a known history of CKD. pH was improved 7.27 later in the morning. NAGMA likely due to GI loss due to lactulose and diuresis. -Continue home oral Bicarb #SBP Previously was previously on Cipro for SBP prophylaxis. Pt started on 2g of IV CTX at admission.. -Outside results obtained on 10/07 showed growth of Gram+ rods from most recent therapeutic paracentesis. -10/07: Started on IV Vancomycin based on results from outside facility. Will engage with them daily([phone]. Ask to speak to a tech) about culture data updates. #Aphasia (resolved) Patient appears to be unable to name objects when asked, but can readily follow commands. Additionally, pt is unable to verbally answer orientation questions. Authors was able to see pt is frustratedin his inability to verbally communicate. It appears that this waxes and wanes and could be attributed to his encephalopathy, though patient has never presented with this symptom and no head imaging has been performed at [facility]. -CT Head w/o contrast -Imaging showed no concern for acute etiology of aphasia. -Will CTM, most likely due to metabolic/toxic encephalopathy #H/o GI Bleed Pt with history of GI bleed in setting of gastric varices, for which IR at OSH had to place 17 coils. 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 - Has previously been on beta blockade for variceal prevention, but did not tolerate beta dominic due to hypotension. - s/p EGD 10/09 #Non-Oliguric NADIYA on CKD Patient noted on OSH labs to have creatinine of 3.6. Baseline creatinine appears to range 2.5-2.9. Per , pt makes urine and has never required dialysis. - Bladder Ultrasound and PVR - UA, urine lytes - Albumin challenge tonight given his NADIYA in setting of hepatic disease - Continue home bicarb tablets - Nephro consult, appreciate recs - Hold home diuretics - Strict I/O's - Workup for Kidney transplant to run concurrently with Liver transplant #h/o Left Sided RCC s/p cryoablation Cryoablation was done 2022. On CT A/P at OSH, pt noted to have persistent L sided exophytic renal mass. -renal consults and Renal Transplant team is following. Workup for Kidney transplant to run concurrently with eval for liver transplant #Hepatic Lesion of Unk etiology OSH CT A/P with iso-attenuating round nodular outpouching in inf R lobe measuring 3.6 x 3.8cm. Differential to include cyst vs metastatic RCC vs primary hepatic tumor - Hepatology consult, appreciate recs - Consider MRI inpatient #History of AUD - Continue home thiamine repletion - PETH and ETOH level as above #History of Cervical Fusion #Neck Pain -PRN Oxy Pain Meds -Robaxin TID #GERD - continue home protonix #HTN - Continue home #HLD #Hypothyroidism - continue home synthroid Nutrition: Diet/Nutrition Orders Diet Regular(7) Frequency: Effective Now Number of Occurrences: Until Specified Order Questions: Suicide/Behavior Risk Modification? No Dietary nutrition supplements Frequency: TID Number of Occurrences: Until Specified Order Comments: Vanilla boost Order Questions: Select Supplement: Boost-1 kcal/ml supplement ([facility] only) Code Status: Full Code Signed: CHARI VANEGAS MD 10/11/2024, 11:56 AM Cosigned by Fouzia Rene MD at 10/11/2024 3:57 PM EDT Associated attestation - Fouzia Rene MD - 10/11/2024 3:57 PM EDT Internal Medicine Attending Supervision Note - Hospital Day# 6 The patient was seen today on rounds with the medical team. I have personally interviewed and performed the physical exam and medical decision making. I conducted an independent review of labs, procedures and imaging pertinent to today's encounter through the EMR. I reviewed the documentation by the medical steamtable attendant railroad and agree as documented. Any additions or clarifications are listed below. Daily plan was discussed with patient at bedside and questions addressed. Patient ID: Julien Gilbert is a 39 y.o. male currently admitted for Acute kidney injury superimposed on CKD ([facility]-HCC) Supplemental History/ ROS: No acute events overnight Feels good this AM Had paracentesis yesterday which went well Exam: Sitting up in bed, NAD + jaundice NCAT, EOMI, + scleral icterus RRR, no appreciable murmur Normal resp effort, lungs CTAB, bibasilar crackles Abd soft with distention (less than previous status post paracentesis), 2+ LE edema bilateral Labs and Imaging reviewed. MELD 3.0: 35 at 10/11/2024 3:02 AM Calculated from: Serum Creatinine: 2.77 mg/dL at 10/11/2024 3:02 AM Serum Sodium: 134 mmol/L at 10/11/2024 3:02 AM Total Bilirubin: 7.3 mg/dL at 10/11/2024 3:02 AM Serum Albumin: 3.3 g/dL at 10/11/2024 3:02 AM INR(ratio): 2.4 at 10/11/2024 3:02 AM Age at listing (hypothetical): 39 years Sex: Male at 10/11/2024 3:02 AM Medical Decision Making/ Assessment & Plan: Julien Gilbert is a 39 y.o. male with admitted for Acute kidney injury superimposed on CKD (CMS-HCC) Active Problems: Spontaneous Bacterial Peritonitis (CMS-HCC): He remains afebrile and vital signs have been stable. Received 4 days of vancomycin. - Completes ceftriaxone today. - Plan to transition back to Cipro after completion of CTX. Anemia: Multiple contributors. S/p 1 unit PRBC. Hemoglobin responded appropriately and remained stable. Will continue to monitor. Metabolic encephalopathy: Resolved. Likely related to combination of hepatic, metabolic, and possibly infectious insults. - Continue home lactulose and rifaximin Decompensated cirrhosis (CMS-HCC): Appreciate hepatology consult. He has started his transplant evaluation and will continue while inpatient. - Continue lactulose, rifaximin, ursodiol, and midodrine - MELD labs daily - Continue home regimen with ursodiol, rifaximin and lactulose - Continue midodrine TID. - Stress test was non-diagnostic due to hypotension. Plan for LHC on Sunday (10/13) - EGD completed. Has esophageal varices and portal gastropathy. - Imaging requiring contrast are on hold until kidney function recovers some. - Status post paracentesis yesterday which removed 8L ascites NADIYA (acute kidney injury) on CKD (CMS-HCC): Hepatorenal syndrome. Appreciate nephrology consult. S/p albumin X3. baseline creatinine presumed to be around 2.5. Creatinine slowly improving. We will continue to monitor. Electrolyte derangements: Replete as needed Neck Pain: He has a history of cervical surgery. Continue oxycodone as needed for pain. Continue tomonitor. Principal Problem: Acute kidney injury superimposed on CKD (CMS-HCC) Active Problems: Decompensated cirrhosis (CMS-HCC) Metabolic encephalopathy Thrombocytopenia (CMS-HCC) Renal mass, left Metabolic acidosis with normal anion gap and bicarbonate losses GERD (gastroesophageal reflux disease) Anemia SBP (spontaneous bacterial peritonitis) (CMS-HCC) Neck pain with history of cervical spinal surgery Continue management for other medical problems per resident / AI note. Disp: Anticipate DC home with spouse when medically ready. Consider d/c home after LHC on Sunday. FOUZIA RENE MD Attending Physician Department of Internal Medicine 10/11/2024 Medical Decision Making: // LEVEL 3 HIGH Acute or chronic illness that may pose threat to life or function Discussed with physician/SAWYER from another specialty or practice, other licensed professional (PT/OT/FLIGHT SURVEYOR/RT), or a non-medical community professional: Nephrology, Hepatology, Transplant Surgery Labs reviewed (1 pt each): CBC, CMP, INR & other daily labs Review of notes from a different specialty or different practice: Nephrology, Anesthesiology hepatology, * Ignacio Queen MD - 10/10/2024 12:12 PM EDT Images from the original note were not included. Department of Internal Medicine Nephrology & Hypertension Consult History & Physical Note Patient: Julien Gilbert Date of Admit: 10/05/2024 Referring physician: Fouzia Rene MD Interval hx EGD today Assessment: Renal Function: Cr: 2.85 Bun: 53 on 10/10/2024 NADIYA on CKD, last discharge creatinine 2.4 Baseline Creatinine 1.2-1.3, Etiology of CKD presumed pre-renal state NADIYA HRS- NADIYA UA bland Urine lytes <10/< 15/ 50 Recent admission in August with NADIYA in context of decompensated cirrhosis treated in the lines of HRS. Electrolytes: Na: 135 K: 3.6 Cl: 108 Ma.9 Ca: 9.0 Phos: 3.3 Hyponatremia Acid Base Status: Anion Gap: 10 Bicarb: 17 NAGMA Hypertension/CVS: BP: 114/58 Goal <130/80 Volume Status: Mineral Bone Disease: Ca: 9.0 PO4: 3.3 Alb: 3.3; 3.3 PTH: No results found for requested labs within last 3600 days. on No results found for requested labs within last 3600 days. Vit D: 7.1 on 10/08/2024 No current issues Anemia of CKD: Hgb 7.3 Hct 20.6 Plt 39 Iron 81 on 10/08/2024 Ferritin 706.9 on 10/08/2024 TIBC: SEE COMMENT on 10/08/2024 Haptoglobin: <30 on 10/08/2024 LDH: 102 on 10/08/2024 Anemia Plan: NADIYA on CKD , baseline last , likely HRS, likely triggered by recent paracentesis and diarrhea, recent cr around 2.4, 2. 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 Not a candidate for terlipressin per liver due to HE, liver and kidney failure, on midodrine tid. cardiac workup pre txp 4. Liver transplant workup per GI/ Primary team, considering for SLK, seen by renal transplant team, not a candidate for kidney txp as of now 5. Evaluation of renal mass per urology Thank you for allowing us to participate in this patient's care. Discussed with Consult Staff. Ignacio Queen MD Renal Fellow Pager # [phone] Chief Complaint No chief complaint on file. Reason for Consult Nadiya on CKD Decompensated cirrhosis History of Present Illness Julien Gilbert is a 39 y.o. y/o male past medical history of decompensated cirrhosis due to alcohol abuse with admitted varices, HRS ascites, hepatic encephalopathy being worked up for liver transplanthypothyroidism CKD baseline 2.5-2.9 , left-sided RCC status post ablation, small right kidney? Who presented with altered mental status and weakness since Sunday. Nephrology consulted for NADIYA on CKD, concern for hepatorenal syndrome.` Patient came from [facility], paracentesis was performed yesterday on 10/05? Fluid pending for SBP analysis Histories he has a past medical history [...] reports current drug use. Drug: Marijuana. Allergies[1] Medications: Home Medications: Home Medications Medication Sig Taking? Last Dose ciprofloxacin HCl (CIPRO) 500 MG tablet Take 1 tablet (500 mg total) by mouth daily. Yes Past Week folic acid (FOLVITE) 1 MG tablet Take 1 tablet (1 mg total) by mouth daily. Yes Past Week lactulose (CHRONULAC) 10 gram/15 mL solution Take 30 mLs (20 g total) by mouth 3 times a day as needed (goal 2-3 bowel movements a day). Yes 10/05/2024 Morning levothyroxine (SYNTHROID) 75 MCG tablet Take 1 tablet (75 mcg total) by mouth every morning before breakfast. Yes 10/05/2024 pantoprazole (PROTONIX) 40 MG tablet Take 1 tablet (40 mg total) by mouth every morning before breakfast. Yes Past Week potassium chloride (KLOR-CON M20) 20 MEQ tablet Take 2 tablets (40 mEq total) by mouth daily. Yes Past Week rifAXIMin (XIFAXAN) 550 mg Tab tablet Take 1 tablet (550 mg total) by mouth 2 times a day. Yes 10/05/2024 Morning sodium bicarbonate 650 MG tablet Take 2 tablets (1,300 mg total) by mouth 3 times a day. Yes 10/05/2024 Morning thiamine HCl (VITAMIN B-1) 100 MG tablet Take 1 tablet (100 mg total) by mouth daily. Yes Past Week traMADoL (ULTRAM) 50 mg tablet Take 1 tablet (50 mg total) by mouth every 12 hours as needed for Pain (Pain). Yes Past Week ursodioL (ACTIGALL) 300 mg capsule Take 1 capsule (300 mg total) by mouth 2 times a day. Yes 10/05/2024 Morning zinc sulfate (ZINCATE) 50 mg zinc (220 mg) capsule Take 1 capsule (220 mg total) by mouth daily. Yes Past Week Inpatient Meds: cefTRIAXone (ROCEPHIN) IVPB 2 g Intravenous Q24H [START ON 10/12/2024] ciprofloxacin HCl 500 mg Oral Q24H folic acid 1 mg Oral Daily 0900 heparin 5,000 Units Subcutaneous 3 times per day lactulose 20 g Oral TID levothyroxine 75 mcg Oral QAM AC loratadine 10 mg Oral Daily 0900 methocarbamoL 500 mg Oral TID midodrine 10 mg Oral TID pantoprazole 40 mg Oral QAM AC rifAXIMin 550 mg Oral BID sodium bicarbonate 1,300 mg Oral TID sodium chloride 0.9 % 250 mL Intravenous Once thiamine HCl 100 mg Oral Daily 0900 ursodioL 300 mg Oral BID zinc sulfate 220 mg Oral Daily 0900 Continuous Infusions: sodium chloride 0.9 % PRN medications: diphenhydrAMINE-zinc acetate, metoprolol tartrate, oxyCODONE OR oxyCODONE Physical Exam Patient Vitals for the past 4 hrs: BP Temp Temp src Pulse Resp SpO2 10/10/24 1030 114/58 98.1 ??F (36.7 ??C) Oral 94 18 100 % 10/10/24 0850 102/55 -- -- 93 16 99 % Wt Readings from Last 3 Encounters: 10/10/24 (!) 263 lb 8 oz (119.5 kg) 09/05/24 (!) 262 lb 9.6 oz (119.1 kg) 09/02/24 (!) 258 lb (117 kg) Intake/Output Summary (Last 24 hours) at 10/10/2024 1212 Last data filed at 10/10/2024 0850 Gross per 24 hour Intake 210 ml Output -- Net 210 ml General appearance: NAD Lungs: No RD, CTA b/l Heart: RRR Abdomen: distended, non tender Extremities: no leg edema Skin: No rashes/lesions noted, no skin tears Psych: lethargic, but answering appropriately Laboratory Data and Imaging Recent Labs 10/08/24 1752 10/09/24 0459 10/10/24 0523 WBC 5.6 4.6 5.1 HGB 8.3* 8.0* 7.3* HCT 24.6* 21.8* 20.6* MCV 103.2* 100.5* 101.2* PLT 39* 36* 39* Recent Labs 10/08/24 0536 10/09/24 0459 10/09/24 0814 10/09/24 1305 10/10/24 0523 NA 135 134 134 134 135 K 3.2* 3.3* 3.4* 3.7 3.6 CL 106 107 107 105 108 CO2 17* 16* 17* 17* 17* BUN 61* 56* 54* 53* 53* CREATININE 3.10* 2.98* 3.04* 2.89* 2.85* GLUCOSE 106* 112* 124* 108* 113* CALCIUM 9.0 9.0 9.0 9.3 9.0 MG 1.9 1.8 -- -- 1.9 PHOS 4.0 3.5 3.5 3.4 3.3 ANIONGAP 12 11 10 12 10 ALBUMIN 3.5 3.5 3.4* 3.4* 3.4* 3.6 3.3* 3.3* Recent Labs 10/08/24 1025 10/09/24 0459 10/09/24 0814 10/09/24 1305 10/10/24 0523 CALCIUM -- < > 9.0 9.3 9.0 PHOS -- < > 3.5 3.4 3.3 [id number] 7.1* -- -- -- -- < > = values in this interval not displayed. Lab Results Component Value Date IRON 81 10/08/2024 TIBC SEE COMMENT 10/08/2024 FERRITIN 706.9 (H) 10/08/2024 No results found for: [id number] , FOLATE Lab Results Component Value Date COLORU Yellow 10/06/2024 CLARITYU Clear 10/06/2024 PROTEINUA Negative 10/06/2024 PHUR 6.0 10/06/2024 LABSPEC 1.014 10/06/2024 GLUCOSEU Negative 10/06/2024 BLOODU Negative 10/06/2024 LEUKOCYTESUR Negative 10/06/2024 NITRITE Negative 10/06/2024 BILIRUBINUR Negative 10/06/2024 UROBILINOGEN <2.0 10/06/2024 RBCUA 1 09/03/2024 WBCUA 1 09/03/2024 BACTERIA Occasional (A) 09/03/2024 No results for input(s): NAUR , KUR , CLUR in the last 72 hours. Invalid input(s): CO2UR , CRUR No results found for: MICROALBUR , [id number] In addition to the above an extensive amount of complex data in the patients lab and chart were reviewed. Diagnostic Imaging Reviewed in EMR. This note was copied forward from previously composed documentation. I have reviewed and updated the history, review of systems, physical exam, data, assessment and plan of the note so that it reflects the evaluation and management of the patient on 10/10/2024. [1] Allergies Allergen Reactions Adhesive Itching and Rash Tegaderm adhesive on Ivs, pt states its tolerable Duloxetine Other (See Comments) Became Manic Cosigned by Colten Gudsoorkar, MD at 10/10/2024 2:33 PM EDT Associated attestation - Colten Huertas MD - 10/10/2024 2:33 PM EDT ATTESTATION I saw Mr/Ms Julien Gilbert with renal fellow / consult team I went through all the events leading to hospitalization, primary teams notes, pertinent laboratorywork up, history and physical examination. I agree with the documentation and plan mentioned in thenote by the fellow. I was present at the time of exam and history taking. DOS 10/10/2024 Julien Gilbert is a 39 y.o. male with has a past medical history of Alcoholic cirrhosis of liver (CMS-HCC), Alcoholic hepatitis, Esophageal varices (CMS-HCC), Hepatorenal syndrome (CMS-HCC), Hypertension, Other hyperlipidemia (07/26/2024), Renal cell carcinoma (CMS-HCC), Thrombocytopenia (CMS-HCC), and Thyroid disease. who presents for NADIYA in the context of his liver disease My additional comments are as follow: Patient seen labs reviewed marginal improvement in the serum creatinine Will be going for upper GI endoscopy FOCUSED PHYSICAL EXAM Vitals: 10/10/24 1330 BP: 109/54 Pulse: 96 Resp: 16 Temp: SpO2: Focused clinical examination was conducted today Patient is clinically euvolemic 1+ pedal edema Chest sounds clear Heart sounds are normal Gross neurological system exam unremarkable Abdo distended Asterixis + PERTINENT LABS Anemia Lab Results Component Value Date WBC 5.1 10/10/2024 HGB 7.3 (L) 10/10/2024 HCT 20.6 (L) 10/10/2024 MCV 101.2 (H) 10/10/2024 PLT 39 (L) 10/10/2024 Lab Results Component Value Date IRON 81 10/08/2024 TIBC SEE COMMENT 10/08/2024 FERRITIN 706.9 (H) 10/08/2024 Acidosis/Electrolytes Lab Results Component Value Date CREATININE 2.85 (H) 10/10/2024 BUN 53 (H) 10/10/2024 NA 135 10/10/2024 K 3.6 10/10/2024 CL 108 10/10/2024 CO2 17 (L) 10/10/2024 CKD MBD Lab Results Component Value Date CALCIUM 9.0 10/10/2024 PHOS 3.3 10/10/2024 Lab Results Component Value Date [id number] 7.1 (L) 10/08/2024 PLAN Continue IV albumin Monitor renal panel No indication for dialysis Pt seen by [facility] neph for SLK assessment -not a candidate for kidney transplant yet Patient is being worked up for liver transplant Will continue to monitor renal panel closely MELD 3.0: 35 at 10/10/2024 5:23 AM Calculated from: Serum Creatinine: 2.85 mg/dL at 10/10/2024 5:23 AM Serum Sodium: 135 mmol/L at 10/10/2024 5:23 AM Total Bilirubin: 8.6 mg/dL at 10/10/2024 5:23 AM Serum Albumin: 3.3 g/dL at 10/10/2024 5:23 AM INR(ratio): 2.1 at 10/10/2024 5:23 AM Age at listing (hypothetical): 39 years Sex: Male at 10/10/2024 5:23 AM Colten Huertas MD, KISHOR LIN FNKF folded cloth taper Div. of Nephrology [facility] E-mail: [email or web address] This note was completely edited, written and [...] my current evaluation and management for this patient which was performed on 10/10/2024 * SAMANTHA Shields - 10/10/2024 11:30 AM EDT Transplant CD counselor met with pt at bedside, father was present in the room, pt was being prepped for a procedure. Pt reports he is doing OK, and is happy that they are considering him for transplant at . CD counselor will continue to follow pt while pt is at [facility]. * Jodi Ortiz PharmD - 10/10/2024 10:27 AM EDT Clinical Pharmacy Service: Vancomycin Consult Progress Note Patient has been transitioned off of vancomycin therapy per team notes and orders. Pharmacy will sign-off at this time, please do not hesitate to consult again as needs arise. Thank you for involving pharmacy in the care of this patient. Jodi Ortiz PharmD Clinical Locksmith, Internal Medicine Preferred contact: [id number] Pager: [phone] October 10, 2024 10:27 AM Laboratory Data Lab 10/10/24 0523 10/09/24 0459 10/08/24 1752 10/08/24 0741 WBC 5.1 4.6 5.6 3.7* HEMOGLOBIN 7.3* 8.0* 8.3* 7.1* HEMATOCRIT 20.6* 21.8* 24.6* 20.0* MEAN CORPUSCULAR VOLUME 101.2* 100.5* 103.2* 103.1* PLATELETS 39* 36* 39* 37* Lab 10/10/24 0523 10/09/24 1305 10/09/24 0814 10/09/24 0459 10/08/24 0536 10/07/24 0600 SODIUM 135 134 134 134 135 132* POTASSIUM 3.6 3.7 3.4* 3.3* 3.2* 3.9 CHLORIDE 108 105 107 107 106 103 CO2 17* 17* 17* 16* 17* 19* BUN 53* 53* 54* 56* 61* 64* CREATININE 2.85* 2.89* 3.04* 2.98* 3.10* 3.38* GLUCOSE 113* 108* 124* 112* 106* 111* CALCIUM 9.0 9.3 9.0 9.0 9.0 9.1 MAGNESIUM 1.9 -- -- 1.8 1.9 1.7 PHOSPHORUS 3.3 3.4 3.5 3.5 4.0 4.2 Cultures Microbiology Results Date and Time Order Name Sensitivity Status Organisms Specimen ID Source 10/07/2024 10:50 PM Giardia Cryptosporidium Antigens Final [id number] 10/07/2024 10:50 PM Ova and Parasite Comprehensive w/ Giardia/Crypto Final [id number] Feces 10/06/2024 1:04 AM #2 Blood culture-Peripheral site 2 Preliminary [id number] Peripheral 10/06/2024 1:04 AM #1 Blood culture-Peripheral site 1 Preliminary [id number] Peripheral Pharmacokinetics Lab Results (Last 7 days) Today 0523 Yesterday 0459 10/08 0536 [facility] Rdm 16.4 11.0 16.0 * Gerri Peterson MD - 10/10/2024 10:09 AM EDT [facility] HEPATOLOGY PROGRESS NOTE Name: Julien Gilbert CSN: [id number] Consulted by: Fouzia Rene MD Reason for Consult: Decompensated Cirrhosis History of Present Illness: Julien Gilbert is a 39 y.o. with history of decompensated EtOH cirrhosis (complicated by EV, HRS, ascites, HE), HTN, and CKD who was transferred from OSH for altered mental status Interval History -DSE yesterday was terminated due to hypotension prior to achieving target HR -Patient is alert and oriented x4 Review of Systems -all systems reviewed; negative unless stated above Past Medical History: Diagnosis Date Alcoholic cirrhosis of liver (CMS-HCC) Alcoholic hepatitis Esophageal varices (CMS-HCC) Hepatorenal syndrome (CMS-HCC) Hypertension Other hyperlipidemia 07/26/2024 Renal cell carcinoma (CMS-HCC) Thrombocytopenia (CMS-HCC) Thyroid disease History reviewed. No pertinent surgical history. History reviewed. No pertinent family history. Social History Tobacco Use Smoking status: Former Types: Cigarettes Smokeless tobacco: Current Substance Use Topics Alcohol use: Yes Comment: History of alcohol abuse, reports no use in 3 week- typically endorses use as 4 glasses ofwine a days Allergies[1] Scheduled Meds: cefTRIAXone (ROCEPHIN) IVPB 2 g Intravenous Q24H folic acid 1 mg Oral Daily 0900 heparin 5,000 Units Subcutaneous 3 times per day lactulose 20 g Oral TID levothyroxine 75 mcg Oral QAM AC magnesium sulfate in sterile water 50 mL 2 g Intravenous Once methocarbamoL 500 mg Oral TID midodrine 10 mg Oral TID pantoprazole 40 mg Oral QAM AC rifAXIMin 550 mg Oral BID sodium bicarbonate 1,300 mg Oral TID sodium chloride 0.9 % 250 mL Intravenous Once thiamine HCl 100 mg Oral Daily 0900 ursodioL 300 mg Oral BID zinc sulfate 220 mg Oral Daily 0900 Continuous Infusions: PRN Meds: metoprolol tartrate, oxyCODONE OR oxyCODONE Prior to Admission Meds: Home Medications Medication Sig Taking? Last Dose ciprofloxacin HCl (CIPRO) 500 MG tablet Take 1 tablet (500 mg total) by mouth daily. Yes Past Week folic acid (FOLVITE) 1 MG tablet Take 1 tablet (1 mg total) by mouth daily. Yes Past Week lactulose (CHRONULAC) 10 gram/15 mL solution Take 30 mLs (20 g total) by mouth 3 times a day as needed (goal 2-3 bowel movements a day). Yes 10/05/2024 Morning levothyroxine (SYNTHROID) 75 MCG tablet Take 1 tablet (75 mcg total) by mouth every morning before breakfast. Yes 10/05/2024 pantoprazole (PROTONIX) 40 MG tablet Take 1 tablet (40 mg total) by mouth every morning before breakfast. Yes Past Week potassium chloride (KLOR-CON M20) 20 MEQ tablet Take 2 tablets (40 mEq total) by mouth daily. Yes Past Week rifAXIMin (XIFAXAN) 550 mg Tab tablet Take 1 tablet (550 mg total) by mouth 2 times a day. Yes 10/05/2024 Morning sodium bicarbonate 650 MG tablet Take 2 tablets (1,300 mg total) by mouth 3 times a day. Yes 10/05/2024 Morning thiamine HCl (VITAMIN B-1) 100 MG tablet Take 1 tablet (100 mg total) by mouth daily. Yes Past Week traMADoL (ULTRAM) 50 mg tablet Take 1 tablet (50 mg total) by mouth every 12 hours as needed for Pain (Pain). Yes Past Week ursodioL (ACTIGALL) 300 mg capsule Take 1 capsule (300 mg total) by mouth 2 times a day. Yes 10/05/2024 Morning zinc sulfate (ZINCATE) 50 mg zinc (220 mg) capsule Take 1 capsule (220 mg total) by mouth daily. Yes Past Week Vitals: Temp: [97.5 ??F (36.4 ??C)-98 ??F (36.7 ??C)] 98 ??F (36.7 ??C) Heart Rate: [92-100] 93 Resp: [16-20] 16 BP: (102-125)/(55-77) 102/55 Intake/Output Summary (Last 24 hours) at 10/10/2024 1009 Last data filed at 10/10/2024 0850 Gross per 24 hour Intake 210 ml Output -- Net 210 ml Physical Exam Gen: No acute distress. Resting in bed. HEENT:. + scleral icterus. CV: Regular rate and rhythm. Lungs:Comfortable on RA Abdomen: Soft, nontender, distended Skin: jaundiced Neuro: Alert. No focal deficits. No asterixis Psych: Appropriate mood and affect. Laboratory: Lab Results Component Value Date WBC 5.1 10/10/2024 HGB 7.3 (L) 10/10/2024 HCT 20.6 (L) 10/10/2024 MCV 101.2 (H) 10/10/2024 PLT 39 (L) 10/10/2024 Lab Results Component Value Date NA 135 10/10/2024 K 3.6 10/10/2024 CL 108 10/10/2024 CO2 17 (L) 10/10/2024 BUN 53 (H) 10/10/2024 CREATININE 2.85 (H) 10/10/2024 GLUCOSE 113 (H) 10/10/2024 CALCIUM 9.0 10/10/2024 PHOS 3.3 10/10/2024 Lab Results Component Value Date AST 40 (H) 10/10/2024 ALT 22 10/10/2024 BILITOT 8.6 (H) 10/10/2024 BILIDIRECT 4.65 (H) 10/10/2024 PROT 4.6 (L) 10/10/2024 ALBUMIN 3.3 (L) 10/10/2024 ALBUMIN 3.3 (L) 10/10/2024 ALKPHOS 118 10/10/2024 Lab Results Component Value Date INR 2.1 (H) 10/10/2024 Lab Results Component Value Date HEPAIGM Nonreactive 10/07/2024 HEPBIGM Nonreactive 09/03/2024 Microbiology: Lab Results Component Value Date LABGRAM Cytospin Results: 09/09/2024 LABGRAM Polymorphonuclear Leukocytes Seen; 09/09/2024 LABGRAM No Organisms Seen; 09/09/2024 MELD 3.0: 35 at 10/10/2024 5:23 AM Calculated from: Serum Creatinine: 2.85 mg/dL at 10/10/2024 5:23 AM Serum Sodium: 135 mmol/L at 10/10/2024 5:23 AM Total Bilirubin: 8.6 mg/dL at 10/10/2024 5:23 AM Serum Albumin: 3.3 g/dL at 10/10/2024 5:23 AM INR(ratio): 2.1 at 10/10/2024 5:23 AM Age at listing (hypothetical): 39 years Sex: Male at 10/10/2024 5:23 AM Assessment/Plan: This is a 39 year old male history of ETOH cirrhosis d/b HE, ascites with SBP who is admitted for AMS. CT head with no acute findings. Unclear precipitant of his HE but suspect likely infectious etiology. Blood cultures and UA unremarkable. He reportedly had diagnostic paracentesis at OSH which reportedly showed normal appearance, 61 nucleated cells, <2000 RBCs 10% Polynuclear, 90% [place] nuc. Per OSH reports, ascitic fluid cultures has been NGTD. There were initial reports of gram + rods on fluid gram stain but this has also been reported as NGTD. Plan/Recommendation # HE #Hx of SBP -Unclear precipitant; initially concerned for infection but infectious work up so far NGTD. -Discontinue vancomycin, complete 5 days of ceftriaxone today. Switch to Cipro tomorrow for secondary SBP prophylaxis. -continue rifaximin, Zinc, and lactulose; titrate to 3 bowel movements daily # NADIYA on CKD -Most likely 2/2 to HRS-NADIYA . Creatinine continues to improve -Given multi-organ failure, patient not a candidate for terlipressin at this time -Management per nephrology -#Ascites -PRN paracentesis -IR consult for paracentesis today #Varices- -history of bleeding Evs, s/p banding. EGD 07/29/2022 which showed grade 1 and 2 varices, no active bleeding. Not BB tolerant. Hb at baseline this admission w/o evidence of GIB. -EGD today: NPO #Transplant: -patient has completed 8/12 weeks CD treatment required to be considered for transplant. -discussed at transplant selection meeting today. Transplant work up ongoing -DSE non diagnostic due to hypotension prior to achieving target HR. -cardiology consult for LHC on Sunday - Transplant nephrology following for consideration for SLK given persistently low eGFR. Per their recommendation, patient will qualify for SLK if eGFR remains <30 until October 22. Pending above cardiac work up, will wait until October 22 to list for SLK. However, if patient decompensates prior to that, will consider for liver transplant alone Patient seen and discussed with the attending physician, Dr Soto. Recommendations are final following attestation GERRI PETERSON MD PGY-5 10/10/2024, 10:09 AM [1] Allergies Allergen Reactions Adhesive Itching and Rash Tegaderm adhesive on Ivs, pt states its tolerable Duloxetine Other (See Comments) Became Manic Cosigned by Lino Soto MD at 10/10/2024 12:11 PM EDT Associated attestation - Lino Soto MD - 10/10/2024 12:11 PM EDT Attending Physician's Note: I have personally seen and examined the patient, reviewed the chart, imaging and labs and have discussed the case with Dr. Peterson, agree with his note and confirm it. 39 y.o. male with alcoholic cirrhosis, ascites, hepatic encephalopathy with recurrent admissions. Sober since Jun 2024. Recent episode of SBP. Currently admitted with altered mental status and acute on chronic kidney injury. Diagnostic paracentesis performed at OSH, showed bacteri ascites. Being treated for SBP. Mental status close to baseline. Renal function slowly improving on midodrine and albumin. Underwent stress test yesterday which was sub optimal due to hypotension PE Vitals: 10/10/24 0654 10/10/24 0720 10/10/24 0850 10/10/24 1030 BP: 107/62 102/55 114/58 BP Location: Right upper arm Right upper arm Patient Position: Lying Lying BP Cuff Size: Regular Pulse: 98 93 94 Resp: 18 16 18 Temp: 98 ??F (36.7 ??C) 98.1 ??F (36.7 ??C) TempSrc: Oral Oral SpO2: 100% 99% 100% Weight: (!) 263 lb 8 oz (119.5 kg) Appears very frail Sclera icteric Abdomen is soft, non-tender Awake and oriented x 3, no asterixis 1+ LE edema A&P 39 y.o. year old male with complex medical issues as detailed in HPI. Acute on chronic liver failure, most likely secondary to infection (SBP). Will continue Abx for a total of 5 days, followed by prophylaxis. Has at least 3 system failures so Terlipressin not ideal for NADIYA. Started on Midodrine 10mg TID. Renal function slightly better. Moving forward with transplant evaluation. DSE was sub optimal. Please consult Cardiology for left heart cath. Our team and patient understands that risk of kidney function worsening with contrast related to LHC but we do not see any other better option for his pre-op surgery risk assessment. Our goal is to have patient listed for simultaneous liver and kidney transplant. Of note, patient has an indeterminate renal lesion which was treated with cryoablation in 2022. This note was completely edited, written and [...] Soto MD GI and Hepatology Staff * Tani TroyD - 10/10/2024 9:13 AM EDT Images from the original note were not included. [facility] Clinical Pharmacy Service: Vancomycin Monitoring Consult Julien Gilbert is a 39 y.o. male currently being treated empirically for Abdominal/Pelvic Infection Patient is allergic to adhesive and duloxetine. Pharmacy consulted for vancomycin management by Saravanan Umanzor. Current Anti-Infectives Dose Frequency Start End cefTRIAXone (ROCEPHIN) 2 g in sodium chloride 0.9% 20 mL IV Push 2 g Every 24 hours 10/06/2024 -- Admin Instructions: ADMINISTER IV PUSH. Infuse over 5 minutes. Draw up 20 mL Sodium Chloride 0.9% into empty syringe. Inject 20 mL into vial of Ceftriaxone. Shake well. Withdraw volume into syringe and administer immediately. Route: Intravenous rifAXIMin (XIFAXAN) tablet 550 mg 550 mg 2 times daily 10/06/2024 -- Route: Oral vancomycin (VANCOCIN) 1,500 mg in sodium chloride 0.9 % 250 mL Apyw3Try (Completed) 1,500 mg Once 10/09/2024 10/09/2024 Admin Instructions: Contact pharmacy if there is a question/concern of whether vancomycin should begiven based on serum drug levels. Use [id number] Adapter - Mix Thoroughly Before Administration Route: Intravenous vancomycin (VANCOCIN) 1,500 mg in sodium chloride 0.9 % 250 mL [id number] 1,500 mg Once 10/10/2024 10/11/2024 Admin Instructions: Contact pharmacy if there is a question/concern of whether vancomycin should begiven based on serum drug levels. Use [id number] Adapter - Mix Thoroughly Before Administration Route: Intravenous vancomycin intermittent/pulse dosing PLACEHOLDER ORDER Use as directed PRN 10/06/2024 -- Admin Instructions: Patient is receiving intermittent/pulse vancomycin dosing based on random serumlevels. NOTE:This is NOT an active medication order. If a dose of vancomycin is needed, it must be entered as a one-time dose by physicians or pharmacists. Route: Intravenous documented within (last 72 hours) Date/Time Action Medication Dose Rate 10/09/24 1019 New Bag vancomycin (VANCOCIN) 1,500 mg in sodium chloride 0.9 % 250 mL [id number] 1,500 mg 166.7 mL/hr 10/08/24 1259 New Bag vancomycin (VANCOCIN) 1,000 mg in sodium chloride 0.9 % 250 mL [id number] 1,000 mg 250 mL/hr --Objective Data-- Vitals: 10/10/24 0248 10/10/24 0654 10/10/24 0720 10/10/24 0850 BP: 107/62 102/55 Pulse: 94 98 93 Resp: 18 16 Temp: 98 ??F (36.7 ??C) TempSrc: Oral SpO2: 100% 100% 99% Weight: (!) 263 lb 8 oz (119.5 kg) No intake/output data recorded. WBC, BUN, Creatinine (Last 7 days) Today 0523 Yesterday 1305 Yesterday 0814 WBC 5.1 -- -- BUN 53 53 54 Creatinine 2.85 2.89 3.04 [place] body weight: 86.8 kg (191 lb 5.7 oz) Adjusted ideal body weight: 99.9 kg (220 lb 3.5 oz) Estimated CrCl: ~35-45 mL/min --Cultures-- Microbiology Results Date and Time Order Name Sensitivity Status Organisms Specimen ID Source 10/07/2024 10:50 PM Giardia Cryptosporidium Antigens Final [id number] 10/07/2024 10:50 PM Ova and Parasite Comprehensive w/ Giardia/Crypto Final [id number] Feces 10/06/2024 1:04 AM #2 Blood culture-Peripheral site 2 Preliminary [id number] Peripheral 10/06/2024 1:04 AM #1 Blood culture-Peripheral site 1 Preliminary [id number] Peripheral --Vancomycin Concentrations-- Lab Results (Last 7 days) Today 05 Yesterday 0459 10/08 0536 Vanc Rdm 16.4 11.0 16.0 --Assessment and Plan-- Patient is a 39 y.o. male being treated with vancomycin empirically for Abdominal/Pelvic infection.(OSH para cultures growing GPCs) Vancomycin random this morning 16.4 mg/L (~19 hour level). Will give a 1500 mg pulse dose this morning Will check vancomycin serum concentration with am labs, prior to next dose. Goal vancomycin trough of 15-20 mg/L Pharmacy will continue to monitor therapy for efficacy and toxicity. Thank you for the consult. Jodi Ortiz, PharmD Clinical Locksmith, Internal Medicine Preferred contact: [facility] Pager: [phone] October 10, 2024 9:13 AM * Eileen Schroeder MD, PhD - 10/10/2024 8:17 AM EDT Department of Internal Medicine Daily Progress Note Chief Complaint / Reason for Follow-Up Julien Gilbert is a 39 y.o. male on hospital day 5. The principal reason for today's follow up visit is Acute kidney injury superimposed on CKD (CMS-HCC). KARENEMERLINE Pt was very conversational today. A&O x 4. And able to name objects and their function Denied Chest pain, fevers/chills and SOB. Pt reports ongoing inc. Abdominal pressure. Said that he slept Review of Systems (Focused) Negative except as mentioned above Medications Scheduled Meds: cefTRIAXone (ROCEPHIN) IVPB 2 g Intravenous Q24H folic acid 1 mg Oral Daily 0900 heparin 5,000 Units Subcutaneous 3 times per day lactulose 20 g Oral TID levothyroxine 75 mcg Oral QAM AC loratadine 10 mg Oral Daily 0900 methocarbamoL 500 mg Oral TID midodrine 10 mg Oral TID pantoprazole 40 mg Oral QAM AC rifAXIMin 550 mg Oral BID sodium bicarbonate 1,300 mg Oral TID sodium chloride 0.9 % 250 mL Intravenous Once thiamine HCl 100 mg Oral Daily 0900 ursodioL 300 mg Oral BID zinc sulfate 220 mg Oral Daily 0900 Continuous Infusions: sodium chloride 0.9 % PRN Meds: diphenhydrAMINE-zinc acetate, metoprolol tartrate, oxyCODONE OR oxyCODONE Vital Signs Temp: [97.5 ??F (36.4 ??C)-98.1 ??F (36.7 ??C)] 98.1 ??F (36.7 ??C) Heart Rate: [92-100] 94 Resp: [16-20] 18 BP: (102-125)/(55-77) 114/58 Intake/Output Summary (Last 24 hours) at 10/10/2024 1117 Last data filed at 10/10/2024 0850 Gross per 24 hour Intake 210 ml Output -- Net 210 ml Physical Exam Physical Exam Constitutional: Appearance: He is ill-appearing. He is not diaphoretic. HENT: Head: Normocephalic and atraumatic. Mouth/Throat: Mouth: Mucous membranes are moist. Pharynx: Oropharynx is clear. Eyes: General: Scleral icterus present. Extraocular Movements: Extraocular movements intact. Cardiovascular: Rate and Rhythm: Normal rate and regular rhythm. Pulses: Normal pulses. Pulmonary: Effort: Pulmonary effort is normal. Breath sounds: Normal breath sounds. Abdominal: General: There is distension. Tenderness: There is abdominal tenderness. Musculoskeletal: Cervical back: Tenderness present. Right lower leg: Edema present. Left lower leg: Edema present. Comments: 2+ edema Skin: General: Skin is dry. Coloration: Skin is jaundiced. Neurological: General: No focal deficit present. Mental Status: He is alert and oriented to person, place, and time. Cranial Nerves: Cranial nerves 2-12 are intact. No cranial nerve deficit. Motor: No weakness. Psychiatric: Mood and Affect: Mood normal. Behavior: Behavior normal. Thought Content: Thought content normal. Cognition and Memory: Cognition normal. Laboratory Data CBC 10/10/2024 \ 7.3 / 5.1 \ / 39 / \ / 20.6 \ Differential 09/16/2024 N 84.2 L 8.0 M 5.1 E 1.5 B 0.7 Renal 10/10/2024 135 108 53 / ___ __ / 113 \ 3.6 17 2.85 \ Ca 9.0 (10/10/2024) Mg 1.9 (10/10/2024) Phos 3.3 (10/10/2024) Lipids Lab Results Component Value Date CHOLTOT <25 10/07/2024 TRIG 30 10/07/2024 HDL 4 (L) 10/07/2024 LDL See Note 10/07/2024 LFTs 10/10/2024 \ 8.6 / \ 4.65 / 40 \ / 22 / \ / 118 \ PT/INR/PTT - 10/10/2024 PT 23.9 INR 2.1 PTT No results found for requested labs within last 3600 days. Lab 10/06/24 1151 COLOR, URINE Yellow CLARITY Clear SPECIFIC GRAVITY, URINE 1.014 PH UA 6.0 PROTEIN UA Negative GLUCOSE UA Negative KETONES UA Negative BILIRUBIN UA Negative BLOOD UA Negative NITRITE UA Negative UROBILINOGEN UA <2.0 LEUKOCYTES UA Negative MELD 3.0: 35 at 10/10/2024 5:23 AM Calculated from: Serum Creatinine: 2.85 mg/dL at 10/10/2024 5:23 AM Serum Sodium: 135 mmol/L at 10/10/2024 5:23 AM Total Bilirubin: 8.6 mg/dL at 10/10/2024 5:23 AM Serum Albumin: 3.3 g/dL at 10/10/2024 5:23 AM INR(ratio): 2.1 at 10/10/2024 5:23 AM Age at listing (hypothetical): 39 years Sex: Male at 10/10/2024 5:23 AM No results found for: NTPROBNP Lab Results Component Value Date TSH 0.81 10/07/2024 FREET4 0.74 09/03/2024 Diagnostic Studies X-ray Mandible minimum 4-views Final Result IMPRESSION: 1. No acute osseous abnormality. Report Verified by: Diana Devlin MD at 10/08/2024 1:12 PM EDT US Duplex [id number] Comp Final Result IMPRESSION: ABDOMEN 1. Cirrhotic liver morphology. No suspicious hepatic lesion. 2. Moderate volume of ascites. 3. Splenomegaly. LIVER DOPPLER 1. Patent hepatic vasculature with normal directional flow. 2. Recanalized umbilical vein as a sequela of portal hypertension, with multiple venous collateralsbordering the falciform ligament. Findings similar to prior. Report Verified by: Alberto Rodriguez MD at 10/07/2024 4:26 PM EDT US Abdomen Complete Final Result IMPRESSION: ABDOMEN 1. Cirrhotic liver morphology. No suspicious hepatic lesion. 2. Moderate volume of ascites. 3. Splenomegaly. LIVER DOPPLER 1. Patent hepatic vasculature with normal directional flow. 2. Recanalized umbilical vein as a sequela of portal hypertension, with multiple venous collateralsbordering the falciform ligament. Findings similar to prior. Report Verified by: Alberto Rodriguez MD at 10/07/2024 4:[address] Head WO contrast Final Result IMPRESSION: 1. No acute intracranial abnormality. 2. No intracranial mass effect or hemorrhage. Report Verified by: Sher Abrams MD at 10/06/2024 4:50 PM EDT X-ray Portable Chest Final Result IMPRESSION: Negative portable chest. Report Verified by: Eduardo Franks MD at 10/06/2024 2:33 AM EDT DXA bone density axial skeleton (Results Pending) Assessment & Plan Julien Gilbert is a 39 y.o. male on HD# 5 with Acute kidney injury superimposed on CKD (CMS-HCC). Themedical issues being addressed in today's encounter are as follows: Principal Problem: Acute kidney injury superimposed on CKD (CMS-HCC) Active Problems: Decompensated cirrhosis (CMS-HCC) Metabolic encephalopathy Thrombocytopenia (CMS-HCC) Renal mass, left Metabolic acidosis with normal anion gap and bicarbonate losses GERD (gastroesophageal reflux disease) Anemia SBP (spontaneous bacterial peritonitis) (CMS-HCC) Neck pain with history of cervical spinal surgery #Encephalopathy Pt noted to have waxing and waning encephalopathy at home over the last few days, initially suspected to be hyperammonemia by and patient, somewhat improved initially with lactulose; however encephalopathy subsequently worsened again. Notably, pt has a history of decompensated cirrhosis episodes including HRS and hepatic encephalopathy. Currently maintain high suspicion for toxic/metabolic encephalopathy in the setting of possible decompensated alcoholic cirrhosis. Continued to have diarrheal episodes despite completion of oral vancomycin for recent C. Diff. OSH labs with low bicarb to 17 and normal lactate, so will give consideration to ongoing C. Diff. - Ammonia level 10/06: 77 within normal range - UDS - Ethanol level, Tylenol level. Salicylate level -10/06: All Low, no concern for toxin-induced etiology at this time. - PETH labs - Continue home lactulose and rifaximin - UA, Blood Cx 10/07: No growth to date - Follow up OSH paracentesis studies, will continue CTX until report communicated -Report showed growth of Gram + rods, pt started on IV Vancomycin -10/10: GI able to connect with OSH lab this AM who stated that no growth from ascites. Recommend stopping Vanc today and stopping CTX on 10/11 and transtion back to SBP Prophylaxis regimen, Cipro 500mg QDAY - CXR d/t RLL wheezing - COVID/Flu/RSV(-) #Decompensated Alcoholic Cirrhosis Pt abdomen non-acute. Does appear significantly jaundiced with scleral icterus. Bedside paracentesis performed at OSH. Concern for possible SBP but reassured by lack of fever and hemodynamically stable status. - MELD labs Daily - Hepatitis Screening - RUQ Ultrasound with Doppler to evaluate for Portal Vein Thrombosis - Hold home Cipro prophylaxis for SBP - Continue home Zinc - Continue home ursodiol - Asked for paracentesis studies to be sent from OSH for review Growing gram + cocci. Vanc added to IV Abx Regimen - Hepatology consult placed, appreciate recs EGD on 10/09, NPO at midnight. - Scheduled for 3 days of Albumin infusion Completed on 10/07 -GI planning for a Paracentesis this week, likely to occur after EGD is performed. 10/10: IR consulted to aid in paracentesis. Thankful for their guidance and expertise in care of this patient. -Pt will be undergoing Stress ECHO on 10/09, with plans for an EGD on 10/10. -Per GI reccs, started on midodrine 10mg TID #Anemia Pt has recorded HgB of 6.9 on 10/08. Likely dilutional due to albumin treatment. Plan to transfuse and order hemolysis labs due to know liver dysfunction. -Retic, LDH, & Haptoglobin labs orders -Consent to transfuse, Type and Screen orders -1u of pRBCs to be transfused with post-transfusion CBC ordered. HgB of 8.3 #NAGMA, resolved Pt found to have a pH of 7.21 upon admission to , with a HCO3 18 and pCO2 41. Pt is Rx Bicarb tablets at home and has a known history of CKD. pH was improved 7.27 later in the morning. NAGMA likely due to GI loss due to lactulose and diuresis. -Restarted oral Bicarb -Improved on 10/07 #SBP Previously was previously on Cipro for SBP prophylaxis. Pt started on 2g of IV CTX at admission.. -Outside results obtained on 10/07 showed growth of Gram+ rods from most recent therapeutic paracentesis. -10/07: Started on IV Vancomycin based on results from outside facility. Will engage with them daily([phone]. Ask to speak to a tech) about culture data updates. #Aphasia Patient appears to be unable to name objects when asked, but can readily follow commands. Additionally, pt is unable to verbally answer orientation questions. Authors was able to see pt is frustratedin his inability to verbally communicate. It appears that this waxes and wanes and could be attributed to his encephalopathy, though patient has never presented with this symptom and no head imaging has been performed at [facility]. -CT Head w/o contrast -Imaging showed no concern for acute etiology of aphasia. -Will CTM, most likely due to metabolic/toxic encephalopathy #H/o GI Bleed Pt with history of GI bleed in setting of gastric varices, for which IR at OSH had to place 17 coils. 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 - Has previously been on beta blockade for variceal prevention, but did not tolerate beta odminic due to hypotension. -EGD scheduled for 10/09 #Non-Oliguric NADIYA on CKD Patient noted on OSH labs to have creatinine of 3.6. Baseline creatinine appears to range 2.5-2.9. Per , pt makes urine and has never required dialysis. - Bladder Ultrasound and PVR - UA, urine lytes - Albumin challenge tonight given his NADIYA in setting of hepatic disease - Continue home bicarb tablets - Nephro consult, appreciate recs - Hold home diuretics - Strict I/O's - Workup for Kidney transplant to run concurrently with Liver transplant #h/o Left Sided RCC s/p cryoablation Cryoablation was done 2022. On CT A/P at OSH, pt noted to have persistent L sided exophytic renal mass. -renal consults and Renal Transplant team is following. Workup for Kidney transplant to run concurrently with eval for liver transplant #Hepatic Lesion of Unk etiology OSH CT A/P with iso-attenuating round nodular outpouching in inf R lobe measuring 3.6 x 3.8cm. Differential to include cyst vs metastatic RCC vs primary hepatic tumor - Hepatology consult, appreciate recs - Consider MRI inpatient #History of AUD - Continue home thiamine repletion - PETH and ETOH level as above #History of Cervical Fusion #Neck Pain -PRN Oxy Pain Meds -Robaxin TID #GERD - continue home protonix #HTN - Continue home #HLD #Hypothyroidism - continue home synthroid Nutrition: Diet/Nutrition Orders Diet NPO past midnight Except for: except sips with meds Frequency: Effective Number of Occurrences: Until Specified Order Questions: Except for except sips with meds Dietary nutrition supplements Frequency: TID Number of Occurrences: Until Specified Order Comments: Vanilla boost Order Questions: Select Supplement: Boost-1 kcal/ml supplement ([facility] only) Code Status: Full Code Signed: EILEEN SCHROEDER MD, PhD 10/10/2024, 11:17 AM Cosigned by Fouzia Rene MD at 10/10/2024 12:53 PM EDT Associated attestation - Fouzia Rene MD - 10/10/2024 12:53 PM EDT Internal Medicine Attending Supervision Note - Hospital Day# 5 The patient was seen today on rounds with the medical team. I have personally interviewed and performed the physical exam and medical decision making. I conducted an independent review of labs, procedures and imaging pertinent to today's encounter through the EMR. I reviewed the documentation by the medical steamtable attendant railroad and agree as documented. Any additions or clarifications are listed below. Daily plan was discussed with patient at bedside and questions addressed. Patient ID: Julien Gilbert is a 39 y.o. male currently admitted for Acute kidney injury superimposed on CKD ([facility]) Supplemental History/ ROS: No acute events overnight Exam: Appears unchanged Pt heading off the floor for EGD Labs and Imaging reviewed. MELD 3.0: 35 at 10/10/2024 5:23 AM Calculated from: Serum Creatinine: 2.85 mg/dL at 10/10/2024 5:23 AM Serum Sodium: 135 mmol/L at 10/10/2024 5:23 AM Total Bilirubin: 8.6 mg/dL at 10/10/2024 5:23 AM Serum Albumin: 3.3 g/dL at 10/10/2024 5:23 AM INR(ratio): 2.1 at 10/10/2024 5:23 AM Age at listing (hypothetical): 39 years Sex: Male at 10/10/2024 5:23 AM Medical Decision Making/ Assessment & Plan: Julien Gilbert is a 39 y.o. male with admitted for Acute kidney injury superimposed on CKD ([facility]) Active Problems: Spontaneous Bacterial Peritonitis ([facility]): Cultures from OSH were reported as growing gram-positive organisms. Today, after secondary review, a rep from OSH lab reports that they do not think the Gram+ organisms were seen. He remains afebrile and vital signs have been stable. - He received 4 days of vancomycin. Will d/c today. - Continue ceftriaxone for full days. Plan to transition back to Cipro after completion of CTX. Anemia: Multiple contributors. S/p 1 unit PRBC. Hemoglobin responded appropriately and remained stable. Will continue to monitor. Metabolic encephalopathy: Mostly resolved. Likely related to combination of hepatic, metabolic, andpossibly infectious insults. - Continue home lactulose and rifaximin Decompensated cirrhosis ([facility]): Appreciate hepatology consult. He has started his transplant evaluation and will continue while inpatient. - MELD labs daily - Continue home regimen with ursodiol, rifaximin and lactulose - Continue midodrine TID. - Stress test was non-diagnostic due to hypotension. Plan for LHC on Sunday (10/13) - EGD today - Imaging requiring contrast are on hold until kidney function recovers some. - Due for therapeutic paracentesis. Will discuss with IR. NADIYA (acute kidney injury) on CKD ([facility] [place] [place]): Appreciate nephrology consult. Likely due to hepatorenal syndrome. S/p albumin X3. baseline creatinine presumed to be around 2.5. Creatinine slowly improving. We will continue to monitor. Electrolyte derangements: Replete as needed Neck Pain: He has a history of cervical surgery. Continue oxycodone as needed for pain. Continue tomonitor. Principal Problem: Acute kidney injury superimposed on CKD ([facility]) Active Problems: Decompensated cirrhosis ([facility]) Metabolic encephalopathy Thrombocytopenia ([facility]) Renal mass, left Metabolic acidosis with normal anion gap and bicarbonate losses GERD (gastroesophageal reflux disease) Anemia SBP (spontaneous bacterial peritonitis) ([facility]) Neck pain with history of cervical spinal surgery Continue management for other medical problems per resident / AI note. Disp: Anticipate DC home with spouse when medically ready. Consider d/c home after LHC on Sunday. FOUZIA RENE MD Attending Physician Department of Internal Medicine 10/10/2024 Medical Decision Making: // LEVEL 3 HIGH Acute or chronic illness that may pose threat to life or function Discussed with physician/SAWYER from another specialty or practice, other licensed professional (PT/OT/FLIGHT SURVEYOR/RT), or a non-medical community professional: Nephrology, Hepatology, Transplant Surgery Labs reviewed (1 pt each): CBC, CMP, INR & other daily labs Review of notes from a different specialty or different practice: Nephrology, Anesthesiology hepatology, * Ignacio Queen MD - 10/09/2024 2:32 PM EDT Images from the original note were not included. Department of Internal Medicine Nephrology & Hypertension Consult History & Physical Note Patient: Julien Gilbert Date of Admit: 10/05/2024 Referring physician: Fouzia Rene MD Interval hx Seen and examined 24 hour urine output not documented Assessment: Renal Function: Cr: 2.89 Bun: 53 on 10/09/2024 NADIYA on CKD, last discharge creatinine 2.4 Likely HRS- NADIYA UA bland Urine lytes <10/< 15/ 50 Recent admission in August with NADIYA in context of decompensated cirrhosis treated in the lines of HRS. Electrolytes: Na: 134 K: 3.7 Cl: 105 Ma.8 Ca: 9.3 Phos: 3.4 Hyponatremia Acid Base Status: Anion Gap: 12 Bicarb: 17 NAGMA Hypertension/CVS: BP: 125/77 Goal <130/80 Volume Status: Mineral Bone Disease: Ca: 9.3 PO4: 3.4 Alb: 3.6 PTH: No results found for requested labs within last 3600 days. on No results found for requested labs within last 3600 days. Vit D: 7.1 on 10/08/2024 No current issues Anemia of CKD: Hgb 8.0 Hct 21.8 Plt 36 Iron 81 on 10/08/2024 Ferritin 706.9 on 10/08/2024 TIBC: SEE COMMENT on 10/08/2024 Haptoglobin: <30 on 10/08/2024 LDH: 102 on 10/08/2024 Anemia Plan: Nadiya on CKD, likely HRS, likely triggered by recent paracentesis and diarrhea, recent cr around 2.4,will obtain OSH records 2. Continue Bicarb tablets 1300 3 times daily for NAGMA related to diarrhea Strictly monitor urine output No Indication for APPLICATION SECURITY ARCHITECT Not a candidate for terlipressin per liver due to HE, liver and kidney failure, on midodrine tid. Considering para today, cardiac workup pre txp Liver transplant workup per GI/ Primary team, considering for SLK, seen by renal transplant team Thank you for allowing us to participate in this patient's care. Discussed with Consult Staff. Ignacio Queen MD Renal Fellow Pager # [phone] Chief Complaint No chief complaint on file. Reason for Consult Nadiya on CKD Decompensated cirrhosis History of Present Illness Julien Gilbert is a 39 y.o. y/o male past medical history of decompensated cirrhosis due to alcohol abuse with admitted varices, HRS ascites, hepatic encephalopathy being worked up for liver transplanthypothyroidism CKD baseline 2.5-2.9 , left-sided RCC status post ablation, small right kidney? Who presented with altered mental status and weakness since Sunday. Nephrology consulted for NADIYA on CKD, concern for hepatorenal syndrome.` Patient came from [facility], paracentesis was performed yesterday on 10/05? Fluid pending for SBP analysis Histories he has a past medical history [...] reports current drug use. Drug: Marijuana. Allergies[1] Medications: Home Medications: Home Medications Medication Sig Taking? Last Dose ciprofloxacin HCl (CIPRO) 500 MG tablet Take 1 tablet (500 mg total) by mouth daily. Yes Past Week folic acid (FOLVITE) 1 MG tablet Take 1 tablet (1 mg total) by mouth daily. Yes Past Week lactulose (CHRONULAC) 10 gram/15 mL solution Take 30 mLs (20 g total) by mouth 3 times a day as needed (goal 2-3 bowel movements a day). Yes 10/05/2024 Morning levothyroxine (SYNTHROID) 75 MCG tablet Take 1 tablet (75 mcg total) by mouth every morning before breakfast. Yes 10/05/2024 pantoprazole (PROTONIX) 40 MG tablet Take 1 tablet (40 mg total) by mouth every morning before breakfast. Yes Past Week potassium chloride (KLOR-CON M20) 20 MEQ tablet Take 2 tablets (40 mEq total) by mouth daily. Yes Past Week rifAXIMin (XIFAXAN) 550 mg Tab tablet Take 1 tablet (550 mg total) by mouth 2 times a day. Yes 10/05/2024 Morning sodium bicarbonate 650 MG tablet Take 2 tablets (1,300 mg total) by mouth 3 times a day. Yes 10/05/2024 Morning thiamine HCl (VITAMIN B-1) 100 MG tablet Take 1 tablet (100 mg total) by mouth daily. Yes Past Week traMADoL (ULTRAM) 50 mg tablet Take 1 tablet (50 mg total) by mouth every 12 hours as needed for Pain (Pain). Yes Past Week ursodioL (ACTIGALL) 300 mg capsule Take 1 capsule (300 mg total) by mouth 2 times a day. Yes 10/05/2024 Morning zinc sulfate (ZINCATE) 50 mg zinc (220 mg) capsule Take 1 capsule (220 mg total) by mouth daily. Yes Past Week Inpatient Meds: cefTRIAXone (ROCEPHIN) IVPB 2 g Intravenous Q24H DOBUTamine (DOBUTREX) 200 mg in sodium chloride 0.9 % 50 mL infusion for Stress Test 1-20 mcg/kg/min Intravenous Once folic acid 1 mg Oral Daily 0900 heparin 5,000 Units Subcutaneous 3 times per day lactulose 20 g Oral TID levothyroxine 75 mcg Oral QAM AC methocarbamoL 500 mg Oral TID midodrine 10 mg Oral TID pantoprazole 40 mg Oral QAM AC potassium chloride ER 40 mEq Oral Once rifAXIMin 550 mg Oral BID sodium bicarbonate 1,300 mg Oral TID sodium chloride 0.9 % 250 mL Intravenous Once thiamine HCl 100 mg Oral Daily 0900 ursodioL 300 mg Oral BID zinc sulfate 220 mg Oral Daily 0900 Continuous Infusions: PRN medications: atropine, metoprolol tartrate, oxyCODONE OR oxyCODONE, vancomycin intermittent/pulse dosing PLACEHOLDER ORDER Physical Exam Patient Vitals for the past 4 hrs: BP Temp Temp src Pulse Resp SpO2 Weight 10/09/24 1418 -- -- -- -- -- -- (!) 262 lb (118.8 kg) 10/09/24 1140 125/77 98 ??F (36.7 ??C) Oral 96 18 100 % -- Wt Readings from Last 3 Encounters: 10/09/24 (!) 262 lb (118.8 kg) 09/05/24 (!) 262 lb 9.6 oz (119.1 kg) 09/02/24 (!) 258 lb (117 kg) No intake or output data in the 24 hours ending 10/09/24 1432 General appearance: NAD Lungs: No RD, CTA b/l Heart: RRR Abdomen: distended, non tender Extremities: no leg edema Skin: No rashes/lesions noted, no skin tears Psych: lethargic, but answering appropriately Laboratory Data and Imaging Recent Labs 10/08/24 0741 10/08/24 1752 10/09/24 0459 WBC 3.7* 5.6 4.6 HGB 7.1* 8.3* 8.0* HCT 20.0* 24.6* 21.8* MCV 103.1* 103.2* 100.5* PLT 37* 39* 36* Recent Labs 10/07/24 0600 10/08/24 0536 10/09/24 0459 10/09/24 0814 10/09/24 1305 NA 132* 135 134 134 134 K 3.9 3.2* 3.3* 3.4* 3.7 CL 103 106 107 107 105 CO2 19* 17* 16* 17* 17* BUN 64* 61* 56* 54* 53* CREATININE 3.38* 3.10* 2.98* 3.04* 2.89* GLUCOSE 111* 106* 112* 124* 108* CALCIUM 9.1 9.0 9.0 9.0 9.3 MG 1.7 1.9 1.8 -- -- PHOS 4.2 4.0 3.5 3.5 3.4 ANIONGAP 10 12 11 10 12 ALBUMIN 3.6 3.6 3.5 3.5 3.4* 3.4* 3.4* 3.6 Recent Labs 10/08/24 1025 10/09/24 0459 10/09/24 0814 10/09/24 1305 CALCIUM -- 9.0 9.0 9.3 PHOS -- 3.5 3.5 3.4 [id number] 7.1* -- -- -- Lab Results Component Value Date IRON 81 10/08/2024 TIBC SEE COMMENT 10/08/2024 FERRITIN 706.9 (H) 10/08/2024 No results found for: [id number] , FOLATE Lab Results Component Value Date COLORU Yellow 10/06/2024 CLARITYU Clear 10/06/2024 PROTEINUA Negative 10/06/2024 PHUR 6.0 10/06/2024 LABSPEC 1.014 10/06/2024 GLUCOSEU Negative 10/06/2024 BLOODU Negative 10/06/2024 LEUKOCYTESUR Negative 10/06/2024 NITRITE Negative 10/06/2024 BILIRUBINUR Negative 10/06/2024 UROBILINOGEN <2.0 10/06/2024 RBCUA 1 09/03/2024 WBCUA 1 09/03/2024 BACTERIA Occasional (A) 09/03/2024 No results for input(s): NAUR , KUR , CLPEDRO in the last 72 hours. Invalid input(s): CO2UR , CRUR No results found for: MICROALBUR , [id number] In addition to the above an extensive amount of complex data in the patients lab and chart were reviewed. Diagnostic Imaging Reviewed in EMR. This note was copied forward from previously composed documentation. I have reviewed and updated the history, review of systems, physical exam, data, assessment and plan of the note so that it reflects the evaluation and management of the patient on 10/09/2024. [1] Allergies Allergen Reactions Adhesive Itching and Rash Tegaderm adhesive on Ivs, pt states its tolerable Duloxetine Other (See Comments) Became Manic Cosigned by Colten Huertas MD at 10/09/2024 6:47 PM EDT Associated attestation - Colten Huertas MD - 10/09/2024 6:47 PM EDT ATTESTATION I saw Mr/Ms Julien Gilbert with renal fellow / consult team I went through all the events leading to hospitalization, primary teams notes, pertinent laboratorywork up, history and physical examination. I agree with the documentation and plan mentioned in thenote by the fellow. I was present at the time of exam and history taking. DOS 10/09/2024 Julien Gilbert is a 39 y.o. male with has a past medical history of Alcoholic cirrhosis of liver (CMS-HCC), Alcoholic hepatitis, Esophageal varices (CMS-HCC), Hepatorenal syndrome (CMS-HCC), Hypertension, Other hyperlipidemia (07/26/2024), Renal cell carcinoma (CMS-HCC), Thrombocytopenia (CMS-HCC), and Thyroid disease. who presents for NADIYA in the context of his liver disease My additional comments are as follow: Pt seen alert today Pts beside Non oliguric Scr marginal stable FOCUSED PHYSICAL EXAM Vitals: 10/09/24 1631 BP: 110/62 Pulse: 100 Resp: 20 Temp: 97.5 ??F (36.4 ??C) SpO2: 98% Focused clinical examination was conducted today Patient is clinically euvolemic 1+ pedal edema Chest sounds clear Heart sounds are normal Gross neurological system exam unremarkable Abdo distended Asterixis + PERTINENT LABS Anemia Lab Results Component Value Date WBC 4.6 10/09/2024 HGB 8.0 (L) 10/09/2024 HCT 21.8 (L) 10/09/2024 MCV 100.5 (H) 10/09/2024 PLT 36 (L) 10/09/2024 Lab Results Component Value Date IRON 81 10/08/2024 TIBC SEE COMMENT 10/08/2024 FERRITIN 706.9 (H) 10/08/2024 Acidosis/Electrolytes Lab Results Component Value Date CREATININE 2.89 (H) 10/09/2024 BUN 53 (H) 10/09/2024 NA 134 10/09/2024 K 3.7 10/09/2024 CL 105 10/09/2024 CO2 17 (L) 10/09/2024 CKD MBD Lab Results Component Value Date CALCIUM 9.3 10/09/2024 PHOS 3.4 10/09/2024 Lab Results Component Value Date [id number] 7.1 (L) 10/08/2024 PLAN Continue IV albumin Monitor renal panel No indication for dialysis Pt seen by [facility] for SLK assessment -not a candidate for kidney transplant yet Patient is being worked up for liver transplant Plan discussed with the primary team patient's abdomen has been distended will need paracentesis Will continue to monitor renal panel closely MELD 3.0: 37 at 10/09/2024 1:05 PM Calculated from: Serum Creatinine: 2.89 mg/dL at 10/09/2024 1:05 PM Serum Sodium: 134 mmol/L at 10/09/2024 1:05 PM Total Bilirubin: 9 mg/dL at 10/09/2024 4:59 AM Serum Albumin: 3.4 g/dL at 10/09/2024 4:59 AM INR(ratio): 2.4 at 10/09/2024 4:59 AM Age at listing (hypothetical): 39 years Sex: Male at 10/09/2024 1:05 PM Colten Huertas MD, KISHOR LIN FNKF folded cloth taper Div. of Nephrology [facility] E-mail: [email or web address] This note was completely edited, written and [...] my current evaluation and management for this patient which was performed on 10/09/2024 * Gerri Peterson MD - 10/09/2024 1:07 PM EDT [facility] PROGRESS NOTE Name: Julien Gilbert CSN: [id number] Consulted by: Fouzia Rene MD Reason for Consult: Decompensated Cirrhosis History of Present Illness: Julien Gilbert is a 39 y.o. with history of decompensated EtOH cirrhosis (complicated by EV, HRS, ascites, HE), HTN, and CKD who was transferred from OSH for altered mental status Interval History -He is s/p 1 unit of pRBC yesterday. -No acute events overnight -Patient alert and oriented X4 this morning Review of Systems -all systems reviewed; negative unless stated above Past Medical History: Diagnosis Date Alcoholic cirrhosis of liver (CMS-HCC) Alcoholic hepatitis Esophageal varices (CMS-HCC) Hepatorenal syndrome (CMS-HCC) Hypertension Other hyperlipidemia 07/26/2024 Renal cell carcinoma (CMS-HCC) Thrombocytopenia (CMS-HCC) Thyroid disease History reviewed. No pertinent surgical history. History reviewed. No pertinent family history. Social History Tobacco Use Smoking status: Former Types: Cigarettes Smokeless tobacco: Current Substance Use Topics Alcohol use: Yes Comment: History of alcohol abuse, reports no use in 3 week- typically endorses use as 4 glasses ofwine a days Allergies[1] Scheduled Meds: cefTRIAXone (ROCEPHIN) IVPB 2 g Intravenous Q24H folic acid 1 mg Oral Daily 0900 heparin 5,000 Units Subcutaneous 3 times per day lactulose 20 g Oral TID levothyroxine 75 mcg Oral QAM AC methocarbamoL 500 mg Oral TID midodrine 10 mg Oral TID pantoprazole 40 mg Oral QAM AC rifAXIMin 550 mg Oral BID sodium bicarbonate 1,300 mg Oral TID thiamine HCl 100 mg Oral Daily 0900 ursodioL 300 mg Oral BID zinc sulfate 220 mg Oral Daily 0900 Continuous Infusions: PRN Meds: oxyCODONE OR oxyCODONE, vancomycin intermittent/pulse dosing PLACEHOLDER ORDER Prior to Admission Meds: Home Medications Medication Sig Taking? Last Dose ciprofloxacin HCl (CIPRO) 500 MG tablet Take 1 tablet (500 mg total) by mouth daily. Yes Past Week folic acid (FOLVITE) 1 MG tablet Take 1 tablet (1 mg total) by mouth daily. Yes Past Week lactulose (CHRONULAC) 10 gram/15 mL solution Take 30 mLs (20 g total) by mouth 3 times a day as needed (goal 2-3 bowel movements a day). Yes 10/05/2024 Morning levothyroxine (SYNTHROID) 75 MCG tablet Take 1 tablet (75 mcg total) by mouth every morning before breakfast. Yes 10/05/2024 pantoprazole (PROTONIX) 40 MG tablet Take 1 tablet (40 mg total) by mouth every morning before breakfast. Yes Past Week potassium chloride (KLOR-CON M20) 20 MEQ tablet Take 2 tablets (40 mEq total) by mouth daily. Yes Past Week rifAXIMin (XIFAXAN) 550 mg Tab tablet Take 1 tablet (550 mg total) by mouth 2 times a day. Yes 10/05/2024 Morning sodium bicarbonate 650 MG tablet Take 2 tablets (1,300 mg total) by mouth 3 times a day. Yes 10/05/2024 Morning thiamine HCl (VITAMIN B-1) 100 MG tablet Take 1 tablet (100 mg total) by mouth daily. Yes Past Week traMADoL (ULTRAM) 50 mg tablet Take 1 tablet (50 mg total) by mouth every 12 hours as needed for Pain (Pain). Yes Past Week ursodioL (ACTIGALL) 300 mg capsule Take 1 capsule (300 mg total) by mouth 2 times a day. Yes 10/05/2024 Morning zinc sulfate (ZINCATE) 50 mg zinc (220 mg) capsule Take 1 capsule (220 mg total) by mouth daily. Yes Past Week Vitals: Temp: [97.7 ??F (36.5 ??C)-98 ??F (36.7 ??C)] 98 ??F (36.7 ??C) Heart Rate: [93-101] 96 Resp: [16-18] 18 BP: (104-129)/(50-77) 125/77 Intake/Output Summary (Last 24 hours) at 10/09/2024 1307 Last data filed at 10/08/2024 1317 Gross per 24 hour Intake 350 ml Output -- Net 350 ml Physical Exam Gen: No acute distress. Resting in bed. HEENT:. + scleral icterus. CV: Regular rate and rhythm. Lungs:Comfortable on RA Abdomen: Soft, nontender, distended Skin: jaundiced Neuro: Alert. No focal deficits. No asterixis Psych: Appropriate mood and affect. Laboratory: Lab Results Component Value Date WBC 4.6 10/09/2024 HGB 8.0 (L) 10/09/2024 HCT 21.8 (L) 10/09/2024 MCV 100.5 (H) 10/09/2024 PLT 36 (L) 10/09/2024 Lab Results Component Value Date NA 134 10/09/2024 K 3.4 (L) 10/09/2024 CL 107 10/09/2024 CO2 17 (L) 10/09/2024 BUN 54 (H) 10/09/2024 CREATININE 3.04 (H) 10/09/2024 GLUCOSE 124 (H) 10/09/2024 CALCIUM 9.0 10/09/2024 PHOS 3.5 10/09/2024 Lab Results Component Value Date AST 38 10/09/2024 ALT 18 10/09/2024 BILITOT 9.0 (H) 10/09/2024 BILIDIRECT 4.60 (H) 10/09/2024 PROT 4.8 (L) 10/09/2024 ALBUMIN 3.4 (L) 10/09/2024 ALKPHOS 122 10/09/2024 Lab Results Component Value Date INR 2.4 (H) 10/09/2024 Lab Results Component Value Date HEPAIGM Nonreactive 10/07/2024 HEPBIGM Nonreactive 09/03/2024 Microbiology: Lab Results Component Value Date LABGRAM Cytospin Results: 09/09/2024 LABGRAM Polymorphonuclear Leukocytes Seen; 09/09/2024 LABGRAM No Organisms Seen; 09/09/2024 MELD 3.0: 37 at 10/09/2024 8:14 AM Calculated from: Serum Creatinine: 3.04 mg/dL (Using max of 3 mg/dL) at 10/09/2024 8:14 AM Serum Sodium: 134 mmol/L at 10/09/2024 8:14 AM Total Bilirubin: 9 mg/dL at 10/09/2024 4:59 AM Serum Albumin: 3.4 g/dL at 10/09/2024 4:59 AM INR(ratio): 2.4 at 10/09/2024 4:59 AM Age at listing (hypothetical): 39 years Sex: Male at 10/09/2024 8:14 AM Assessment/Plan: This is a 39 year old male history of ETOH cirrhosis d/b HE, ascites with SBP who is admitted for AMS. CT head with no acute findings. Unclear precipitant of his HE but suspect likely infectious etiology. Blood cultures and UA unremarkable. He reportedly had diagnostic paracentesis at OSH which reportedly showed normal appearance, 61 nucleated cells, <2000 RBCs 10% Polynuclear, 90% [place] nuc. Fluid cultures reportedly grew gram + rods. This is consistent with bacteriascites. Plan/Recommendation # encephalopathy # HE - Ascitic fluid studies at OSH growing gram+ rods with negative PMN consistent with bacteriascites. -blood culture and UA unremarkable -Unclear precipitant of HE but suspect likely infectious -continue empiric antibiotics; follow up speciation for ascitic fluid culture at OSH -continue rifaximin, Zinc, and lactulose; titrate to 3 bowel movements daily -Follow up C diff # NADIYA on CKD - Most likely 2/2 to HRS-NADIYA - Given multi-organ failure, patient not a candidate for terlipressin at this time -Management per IR -#Ascites #Bacteriascites -Antibiotics management as above . Continue prn paracentesis. -Antibiotics management per above #Varices- -history of bleeding Evs, s/p banding. EGD 07/29/2022 which showed grade 1 and 2 varices, no active bleeding. Not BB tolerant. Hb at baseline this admission w/o evidence of GIB. -EGD tomorrow, 10/10. NPO at midnight #Transplant: -patient has completed 8/12 weeks CD treatment required to be considered for transplant. -discussed at transplant selection meeting today. Will proceed with pre- transplant evaluation. Pre-transplant evaluation ongoing. -Scheduled for to day at 3pm - transplant nephrology following for consideration for SLK given persistently low eGFR. Per their recommendation, patient will qualify for SLK if eGFR remains <30 until October 22. Will discuss atmulti-disciplinary rounds on Sunday whether to proceed with liver transplant alone or whether to wait until he qualifies for SLK Patient seen and discussed with the attending physician, Dr Soto. Recommendations are final following attestation GERRI PETERSON MD PGY-5 10/09/2024, 1:07 PM [1] Allergies Allergen Reactions Adhesive Itching and Rash Tegaderm adhesive on Ivs, pt states its tolerable Duloxetine Other (See Comments) Became Manic Cosigned by Lino Soto MD at 10/09/2024 2:53 PM EDT Associated attestation - Lino Soto MD - 10/09/2024 2:53 PM EDT Attending Physician's Note: I have personally seen and examined the patient, reviewed the chart, imaging and labs and have discussed the case with Dr. Peterson, agree with his note and confirm it. 39 y.o. male with alcoholic cirrhosis, ascites, hepatic encephalopathy with recurrent admissions. Sober since Jun 2024. Recent episode of SBP. Currently admitted with altered mental status and acute on chronic kidney injury. Diagnostic paracentesis performed at OSH, showed bacteri ascites. Being treated for SBP. Mental status close to baseline. Renal function slowly improving on midodrine and albumin PE Vitals: 10/09/24 0105 10/09/24 0725 10/09/24 1140 10/09/24 1418 BP: 123/75 115/63 125/77 BP Location: Right upper arm Right upper arm Right upper arm Patient Position: Lying Lying Lying BP Cuff Size: Pulse: 101 93 96 Resp: 18 18 18 Temp: 97.9 ??F (36.6 ??C) 97.7 ??F (36.5 ??C) 98 ??F (36.7 ??C) TempSrc: Oral Oral Oral SpO2: 100% 100% 100% Weight: (!) 262 lb (118.8 kg) Appears very frail Sclera icteric Abdomen is soft, non-tender Awake and oriented x 3, no asterixis 1+ LE edema A&P 39 y.o. year old male with complex medical issues as detailed in HPI. Acute on chronic liver failure, most likely secondary to infection (SBP). Will continue Abx for now. Has at least 3 system failures so Terlipressin not ideal for NADIYA. Started on Midodrine 10 mg TID. Renal function slightly better. Moving forward with transplant evaluation. Scheduled for dobutamine stress echo today since CT coronary evaluation could not be done due to NADIYA. If stress negative, will discuss in multi-D transplant rounds tomorrow regarding liver only listing now vs wait until October 22 for SLK listing. Of note, patient has an indeterminate renal lesion which was treated with cryoablation in 2022. This note was completely edited, written and [...] Soto MD GI and Hepatology Staff * Jodi Ortiz, PharmD - 10/09/2024 8:29 AM EDT Images from the original note were not included. [facility] Clinical Pharmacy Service: Vancomycin Monitoring Consult Julien Gilbert is a 39 y.o. male currently being treated empirically for Abdominal/Pelvic Infection Patient is allergic to adhesive and duloxetine. Pharmacy consulted for vancomycin management by Saravanan Umanzor. Current Anti-Infectives Dose Frequency Start End cefTRIAXone (ROCEPHIN) 2 g in sodium chloride 0.9% 20 mL IV Push 2 g Every 24 hours 10/06/2024 -- Admin Instructions: ADMINISTER IV PUSH. Infuse over 5 minutes. Draw up 20 mL Sodium Chloride 0.9% into empty syringe. Inject 20 mL into vial of Ceftriaxone. Shake well. Withdraw volume into syringe and administer immediately. Route: Intravenous rifAXIMin (XIFAXAN) tablet 550 mg 550 mg 2 times daily 10/06/2024 -- Route: Oral vancomycin (VANCOCIN) 1,000 mg in sodium chloride 0.9 % 250 mL [id number] (Completed) 1,000 mg Once 10/08/2024 10/08/2024 Admin Instructions: Contact pharmacy if there is a question/concern of whether vancomycin should begiven based on serum drug levels. Use [id number] Adapter - Mix Thoroughly Before Administration Route: Intravenous vancomycin (VANCOCIN) 1,500 mg in sodium chloride 0.9 % 250 mL [id number] 1,500 mg Once 10/09/2024 10/10/2024 Admin Instructions: Contact pharmacy if there is a question/concern of whether vancomycin should begiven based on serum drug levels. Use [id number] Adapter - Mix Thoroughly Before Administration Route: Intravenous vancomycin intermittent/pulse dosing PLACEHOLDER ORDER Use as directed PRN 10/06/2024 -- Admin Instructions: Patient is receiving intermittent/pulse vancomycin dosing based on random serumlevels. NOTE:This is NOT an active medication order. If a dose of vancomycin is needed, it must be entered as a one-time dose by physicians or pharmacists. Route: Intravenous documented within (last 72 hours) Date/Time Action Medication Dose Rate 10/08/24 1259 New Bag vancomycin (VANCOCIN) 1,000 mg in sodium chloride 0.9 % 250 mL [id number] 1,000 mg 250 mL/hr 10/06/24 1413 New Bag vancomycin (VANCOCIN) 2,750 mg in sodium chloride 0.9 % 500 mL IVPB 2,750 mg 200 mL/hr --Objective Data-- Vitals: 10/08/24 2101 10/08/24 2146 10/09/24 0105 10/09/24 0725 BP: 129/74 123/75 115/63 Pulse: 101 99 101 93 Resp: 18 18 18 Temp: 97.7 ??F (36.5 ??C) 97.9 ??F (36.6 ??C) 97.7 ??F (36.5 ??C) TempSrc: Oral Oral Oral SpO2: 100% 100% 100% 100% I/O last 3 completed shifts: In: 830 [P.O.:480; Blood:350] Out: - WBC, BUN, Creatinine (Last 7 days) Today 0459 Yesterday 1752 Yesterday 0741 WBC 4.6 5.6 3.7 BUN 56 -- -- Creatinine 2.98 -- -- Patient weight not recorded Estimated CrCl: ~35-45 mL/min --Cultures-- Microbiology Results Date and Time Order Name Sensitivity Status Organisms Specimen ID Source 10/07/2024 10:50 PM Giardia Cryptosporidium Antigens Final [id number] 10/07/2024 10:50 PM Ova and Parasite Comprehensive w/ Giardia/Crypto Final [id number] Feces 10/06/2024 1:04 AM #2 Blood culture-Peripheral site 2 Preliminary [id number] Peripheral 10/06/2024 1:04 AM #1 Blood culture-Peripheral site 1 Preliminary [id number] Peripheral --Vancomycin Concentrations-- Lab Results (Last 7 days) Today 0459 Yesterday 0510/07 0600 Vanc Rdm 11.0 16.0 21.1 --Assessment and Plan-- Patient is a 39 y.o. male being treated with vancomycin empirically for Abdominal/Pelvic infection.(OSH para cultures growing GPCs) Vancomycin random this morning 11 mg/L (~16 hour level). Will give a 1500 mg pulse dose this morning Will check vancomycin serum concentration with am labs, prior to next dose. Goal vancomycin trough of 15-20 mg/L Pharmacy will continue to monitor therapy for efficacy and toxicity. Thank you for the consult. Jodi Ortiz PharmD Clinical Locksmith, Internal Medicine Preferred contact: [employer] [id number] Pager: [phone] October 09, 2024 8:29 AM * Eileen Schroeder MD, PhD - 10/09/2024 8:00 AM EDT Department of Internal Medicine Daily Progress Note Chief Complaint / Reason for Follow-Up Julien Gilbert is a 39 y.o. male on hospital day 4. The principal reason for today's follow up visit is Acute kidney injury superimposed on CKD (CMS-HCC). NAEON and father at bedside Pt fully conversational today. A&O x 4. Denied Chest pain, fevers/chills and SOB. Pt informed that paracentesis will likely occur once other interventions/images are are performed. Review of Systems (Focused) Negative except as mentioned above Medications Scheduled Meds: cefTRIAXone (ROCEPHIN) IVPB 2 g Intravenous Q24H folic acid 1 mg Oral Daily 0900 heparin 5,000 Units Subcutaneous 3 times per day lactulose 20 g Oral TID levothyroxine 75 mcg Oral QAM AC methocarbamoL 500 mg Oral TID midodrine 10 mg Oral TID pantoprazole 40 mg Oral QAM AC rifAXIMin 550 mg Oral BID sodium bicarbonate 1,300 mg Oral TID thiamine HCl 100 mg Oral Daily 0900 ursodioL 300 mg Oral BID zinc sulfate 220 mg Oral Daily 0900 Continuous Infusions: PRN Meds: oxyCODONE OR oxyCODONE, vancomycin intermittent/pulse dosing PLACEHOLDER ORDER Vital Signs Temp: [97.7 ??F (36.5 ??C)-98 ??F (36.7 ??C)] 98 ??F (36.7 ??C) Heart Rate: [93-101] 96 Resp: [16-18] 18 BP: (102-129)/(50-77) 125/77 Intake/Output Summary (Last 24 hours) at 10/09/2024 1222 Last data filed at 10/08/2024 1317 Gross per 24 hour Intake 350 ml Output -- Net 350 ml Physical Exam Physical Exam Constitutional: Appearance: He is ill-appearing. He is not diaphoretic. HENT: Head: Normocephalic and atraumatic. Mouth/Throat: Mouth: Mucous membranes are moist. Pharynx: Oropharynx is clear. Eyes: General: Scleral icterus present. Extraocular Movements: Extraocular movements intact. Cardiovascular: Rate and Rhythm: Normal rate and regular rhythm. Pulses: Normal pulses. Pulmonary: Effort: Pulmonary effort is normal. Breath sounds: Normal breath sounds. Abdominal: General: There is distension. Tenderness: There is abdominal tenderness. Musculoskeletal: Cervical back: Tenderness present. Right lower leg: Edema present. Left lower leg: Edema present. Comments: 2+ edema Skin: General: Skin is dry. Coloration: Skin is jaundiced. Neurological: General: No focal deficit present. Mental Status: He is alert and oriented to person, place, and time. Cranial Nerves: Cranial nerves 2-12 are intact. No cranial nerve deficit. Motor: No weakness. Psychiatric: Mood and Affect: Mood normal. Behavior: Behavior normal. Thought Content: Thought content normal. Cognition and Memory: Cognition normal. Laboratory Data CBC 10/09/2024 \ 8.0 / 4.6 \ / 36 / \ / 21.8 \ Differential 09/16/2024 N 84.2 L 8.0 M 5.1 E 1.5 B 0.7 Renal 10/09/2024 134 107 54 / ___ __ / 124 \ 3.4 17 3.04 \ Ca 9.0 (10/09/2024) Mg 1.8 (10/09/2024) Phos 3.5 (10/09/2024) Lipids Lab Results Component Value Date CHOLTOT <25 10/07/2024 TRIG 30 10/07/2024 HDL 4 (L) 10/07/2024 LDL See Note 10/07/2024 LFTs 10/09/2024 \ 9.0 / \ 4.60 / 38 \ / 18 / \ / 122 \ PT/INR/PTT - 10/09/2024 PT 26.5 INR 2.4 PTT No results found for requested labs within last 3600 days. Lab 10/06/24 1151 COLOR, URINE Yellow CLARITY Clear SPECIFIC GRAVITY, URINE 1.014 PH UA 6.0 PROTEIN UA Negative GLUCOSE UA Negative KETONES UA Negative BILIRUBIN UA Negative BLOOD UA Negative NITRITE UA Negative UROBILINOGEN UA <2.0 LEUKOCYTES UA Negative MELD 3.0: 37 at 10/09/2024 8:14 AM Calculated from: Serum Creatinine: 3.04 mg/dL (Using max of 3 mg/dL) at 10/09/2024 8:14 AM Serum Sodium: 134 mmol/L at 10/09/2024 8:14 AM Total Bilirubin: 9 mg/dL at 10/09/2024 4:59 AM Serum Albumin: 3.4 g/dL at 10/09/2024 4:59 AM INR(ratio): 2.4 at 10/09/2024 4:59 AM Age at listing (hypothetical): 39 years Sex: Male at 10/09/2024 8:14 AM No results found for: NTPROBNP Lab Results Component Value Date TSH 0.81 10/07/2024 FREET4 0.74 09/03/2024 Diagnostic Studies X-ray Mandible minimum 4-views Final Result IMPRESSION: 1. No acute osseous abnormality. Report Verified by: Diana Devlin MD at 10/08/2024 1:12 PM EDT US Duplex Bld-Acv-Aurxtbr Comp Final Result IMPRESSION: ABDOMEN 1. Cirrhotic liver morphology. No suspicious hepatic lesion. 2. Moderate volume of ascites. 3. Splenomegaly. LIVER DOPPLER 1. Patent hepatic vasculature with normal directional flow. 2. Recanalized umbilical vein as a sequela of portal hypertension, with multiple venous collateralsbordering the falciform ligament. Findings similar to prior. Report Verified by: Alberto Rodriguez MD at 10/07/2024 4:26 PM EDT US Abdomen Complete Final Result IMPRESSION: ABDOMEN 1. Cirrhotic liver morphology. No suspicious hepatic lesion. 2. Moderate volume of ascites. 3. Splenomegaly. LIVER DOPPLER 1. Patent hepatic vasculature with normal directional flow. 2. Recanalized umbilical vein as a sequela of portal hypertension, with multiple venous collateralsbordering the falciform ligament. Findings similar to prior. Report Verified by: Alberto Rodriguez MD at 10/07/2024 4:[address] Head WO contrast Final Result IMPRESSION: 1. No acute intracranial abnormality. 2. No intracranial mass effect or hemorrhage. Report Verified by: Sher Abrams MD at 10/06/2024 4:50 PM EDT X-ray Portable Chest Final Result IMPRESSION: Negative portable chest. Report Verified by: Eduardo Franks MD at 10/06/2024 2:33 AM EDT DXA bone density axial skeleton (Results Pending) Assessment & Plan Julien Gilbert is a 39 y.o. male on HD# 4 with Acute kidney injury superimposed on CKD (CMS-HCC). Themedical issues being addressed in today's encounter are as follows: Principal Problem: Acute kidney injury superimposed on CKD (CMS-HCC) Active Problems: Decompensated cirrhosis (CMS-HCC) Metabolic encephalopathy Thrombocytopenia (CMS-HCC) Renal mass, left Metabolic acidosis with normal anion gap and bicarbonate losses GERD (gastroesophageal reflux disease) Anemia SBP (spontaneous bacterial peritonitis) (CMS-HCC) Neck pain with history of cervical spinal surgery #Encephalopathy Pt noted to have waxing and waning encephalopathy at home over the last few days, initially suspected to be hyperammonemia by and patient, somewhat improved initially with lactulose; however encephalopathy subsequently worsened again. Notably, pt has a history of decompensated cirrhosis episodes including HRS and hepatic encephalopathy. Currently maintain high suspicion for toxic/metabolic encephalopathy in the setting of possible decompensated alcoholic cirrhosis. Continued to have diarrheal episodes despite completion of oral vancomycin for recent C. Diff. OSH labs with low bicarb to 17 and normal lactate, so will give consideration to ongoing C. Diff. - Ammonia level 10/06: 77 within normal range - UDS - Ethanol level, Tylenol level. Salicylate level -10/06: All Low, no concern for toxin-induced etiology at this time. - PETH labs - Continue home lactulose and rifaximin - UA, Blood Cx 10/07: No growth to date - Follow up OSH paracentesis studies, will continue CTX until report communicated -Report showed growth of Gram + rods, pt started on IV Vancomycin - CXR d/t RLL wheezing - COVID/Flu/RSV(-) #Decompensated Alcoholic Cirrhosis Pt abdomen non-acute. Does appear significantly jaundiced with scleral icterus. Bedside paracentesis performed at OSH. Concern for possible SBP but reassured by lack of fever and hemodynamically stable status. - MELD labs Daily - Hepatitis Screening - RUQ Ultrasound with Doppler to evaluate for Portal Vein Thrombosis - Hold home Cipro prophylaxis for SBP - Continue home Zinc - Continue home ursodiol - Asked for paracentesis studies to be sent from OSH for review Growing gram + cocci. Vanc added to IV Abx Regimen - Hepatology consult placed, appreciate recs EGD on 10/09, NPO at midnight. - Scheduled for 3 days of Albumin infusion Completed on 10/07 -GI planning for a Paracentesis this week, likely to occur after EGD is performed. -Pt will be undergoing Stress ECHO on 10/09, with plans for a EGD on 10/10. -Per GI reccs, started on midodrine 10mg TID #Anemia Pt has recorded HgB of 6.9 on 10/08. Likely dilutional due to albumin treatment. Plan to transfuse and order hemolysis labs due to know liver dysfunction. -Retic, LDH, & Haptoglobin labs orders -Consent to transfuse, Type and Screen orders -1u of pRBCs to be transfused with post-transfusion CBC ordered. HgB of 8.3 #NAGMA, resolved Pt found to have a pH of 7.21 upon admission to , with a HCO3 18 and pCO2 41. Pt is Rx Bicarb tablets at home and has a known history of CKD. pH was improved 7.27 later in the morning. NAGMA likely due to GI loss due to lactulose and diuresis. -Restarted oral Bicarb -Improved on 10/07 #SBP Previously was previously on Cipro for SBP prophylaxis. Pt started on 2g of IV CTX at admission.. -Outside results obtained on 10/07 showed growth of Gram+ rods from most recent therapeutic paracentesis. -10/07: Started on IV Vancomycin based on results from outside facility. Will engage with them daily([phone]. Ask to speak to a tech) about culture data updates. #Aphasia Patient appears to be unable to name objects when asked, but can readily follow commands. Additionally, pt is unable to verbally answer orientation questions. Authors was able to see pt is frustratedin his inability to verbally communicate. It appears that this waxes and wanes and could be attributed to his encephalopathy, though patient has never presented with this symptom and no head imaging has been performed at [facility]. -CT Head w/o contrast -Imaging showed no concern for acute etiology of aphasia. -Will CTM, most likely due to metabolic/toxic encephalopathy #H/o GI Bleed Pt with history of GI bleed in setting of gastric varices, for which IR at OSH had to place 17 coils. 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 - Has previously been on beta blockade for variceal prevention, but did not tolerate beta dominic due to hypotension. -EGD scheduled for 10/09 #Non-Oliguric NADIYA on CKD Patient noted on OSH labs to have creatinine of 3.6. Baseline creatinine appears to range 2.5-2.9. Per , pt makes urine and has never required dialysis. - Bladder Ultrasound and PVR - UA, urine lytes - Albumin challenge tonight given his NADIYA in setting of hepatic disease - Continue home bicarb tablets - Nephro consult, appreciate recs - Hold home diuretics - Strict I/O's #h/o Left Sided RCC s/p cryoablation Cryoablation was done 2022. On CT A/P at OSH, pt noted to have persistent L sided exophytic renal mass. -renal consults and Renal Transplant team is following. Workup for Kidney transplant to run concurrently with eval for liver transplant #Hepatic Lesion of Unk etiology OSH CT A/P with iso-attenuating round nodular outpouching in inf R lobe measuring 3.6 x 3.8cm. Differential to include cyst vs metastatic RCC vs primary hepatic tumor - Hepatology consult, appreciate recs - Consider MRI inpatient #History of AUD - Continue home thiamine repletion - PETH and ETOH level as above #History of Cervical Fusion #Neck Pain -PRN Oxy Pain Meds -Robaxin TID #GERD - continue home protonix #HTN - Continue home #HLD #Hypothyroidism - continue home synthroid Nutrition: Diet/Nutrition Orders Diet NPO Except for: except sips with meds, for procedure Frequency: Effective Now Number of Occurrences: Until Specified Order Questions: Except for except sips with meds Except for for procedure Dietary nutrition supplements Frequency: TID Number of Occurrences: Until Specified Order Comments: Vanilla boost Order Questions: Select Supplement: Boost-1 kcal/ml supplement ([facility] only) Code Status: Full Code Signed: EILEEN SCHROEDER MD, PhD 10/09/2024, 12:22 PM Cosigned by Fouzia Rene MD at 10/09/2024 10:29 PM EDT Associated attestation - Fouzia Rene MD - 10/09/2024 10:29 PM EDT Internal Medicine Attending Supervision Note - Hospital Day# 4 The patient was seen today on rounds with the medical team. I have personally interviewed and performed the physical exam and medical decision making. I conducted an independent review of labs, procedures and imaging pertinent to today's encounter through the EMR. I reviewed the documentation by the medical steamtable attendant railroad and agree as documented. Any additions or clarifications are listed below. Daily plan was discussed with patient at bedside and questions addressed. Patient ID: Julien Gilbert is a 39 y.o. male currently admitted for Acute kidney injury superimposed on CKD ([facility]-HCC) Supplemental History/ ROS: No acute events overnight He does note that his abdomen remains distended Denies dyspnea, lightheadedness, chest pain No notable bleeding Exam: Lying in bed, NAD + jaundice NCAT, EOMI, + scleral icterus RRR, no appreciable murmur Normal resp effort, lungs CTAB, bibasilar crackles Abd soft with distention, mild tenderness 2+ LE edema bilateral Labs and Imaging reviewed. Medical Decision Making/ Assessment & Plan: Julien Gilbert is a 39 y.o. male with admitted for Acute kidney injury superimposed on CKD ([facility]-HCC) Active Problems: Anemia: S/p 1 unit PRBC from yesterday. Hemoglobin responded appropriately and remained stable. Will continue to monitor. Metabolic encephalopathy: Mostly resolved. Likely related to combination of hepatic, metabolic, andpossibly infectious insults. - Continue home lactulose and rifaximin Spontaneous Bacterial Peritonitis ([facility]-HCC): Cultures from OSH are growing gram- positive organisms.We continue to await speciation. He remains afebrile and vital signs have been stable. - Continue vancomycin and ceftriaxone for now. - Will follow-up on speciation and sensitivities. Decompensated cirrhosis ([facility]-HCC): Appreciate hepatology consult. He has started his transplant evaluation and will continue while inpatient. - MELD labs daily - Continue home regimen with ursodiol, rifaximin and lactulose - Start midodrine 3 times daily - EGD postponed until tomorrow -Planning for stress test today - Due for therapeutic paracentesis in the next day or so. NADIYA (acute kidney injury) on CKD (CMS-HCC): Appreciate nephrology consult. Likely due to hepatorenal syndrome. Now s/p albumin X3. baseline creatinine presumed to be around 2.5. Creatinine slightly lower today. We will continue to monitor. Electrolyte derangements: Replete as needed Neck Pain: He has a history of cervical surgery. Continue oxycodone as needed for pain. Continue tomonitor. Principal Problem: Acute kidney injury superimposed on CKD (CMS-HCC) Active Problems: Decompensated cirrhosis (CMS-HCC) Metabolic encephalopathy Thrombocytopenia (CMS-HCC) Renal mass, left Metabolic acidosis with normal anion gap and bicarbonate losses GERD (gastroesophageal reflux disease) Anemia SBP (spontaneous bacterial peritonitis) (CMS-HCC) Neck pain with history of cervical spinal surgery Continue management for other medical problems per resident / AI note. Disp: Anticipate DC home with spouse when medically ready. Awaiting final speciation for de-escalation of antibiotics and final recs from hepatology. FOUZIA RENE MD Attending Physician Department of Internal Medicine 10/09/2024 Medical Decision Making: // LEVEL 3 HIGH Acute or chronic illness that may pose threat to life or function Discussed with physician/SAWYER from another specialty or practice, other licensed professional (PT/OT/FLIGHT SURVEYOR/RT), or a non-medical community professional: Nephrology, Hepatology Labs reviewed (1 pt each): CBC, CMP, INR & other daily labs Review of notes from a different specialty or different practice: Nephrology, Anesthesiology hepatology, * Gerri Peterson MD - 10/08/2024 1:40 PM EDT [facility] PROGRESS NOTE Name: Julien Gilbert CSN: [id number] Consulted by: Fouzia Rene MD Reason for Consult: Decompensated Cirrhosis History of Present Illness: Julien Gilbert is a 39 y.o. with history of decompensated EtOH cirrhosis (complicated by EV, HRS, ascites, HE), HTN, and CKD who was transferred from OSH for altered mental status Interval History -no acute events overnight -patient alert and oriented X4 this morning -no evidence of overt GI bleed Review of Systems -all systems reviewed; negative unless stated above Past Medical History: Diagnosis Date Alcoholic cirrhosis of liver (CMS-HCC) Alcoholic hepatitis Esophageal varices (CMS-HCC) Hepatorenal syndrome (CMS-HCC) Hypertension Other hyperlipidemia 07/26/2024 Renal cell carcinoma (CMS-HCC) Thrombocytopenia (CMS-HCC) Thyroid disease History reviewed. No pertinent surgical history. History reviewed. No pertinent family history. Social History Tobacco Use Smoking status: Former Types: Cigarettes Smokeless tobacco: Current Substance Use Topics Alcohol use: Yes Comment: History of alcohol abuse, reports no use in 3 week- typically endorses use as 4 glasses ofwine a days Allergies[1] Scheduled Meds: cefTRIAXone (ROCEPHIN) IVPB 2 g Intravenous Q24H folic acid 1 mg Oral Daily 0900 heparin 5,000 Units Subcutaneous 3 times per day lactulose 20 g Oral TID levothyroxine 75 mcg Oral QAM AC methocarbamoL 500 mg Oral TID pantoprazole 40 mg Oral QAM AC rifAXIMin 550 mg Oral BID sodium bicarbonate 1,300 mg Oral TID thiamine HCl 100 mg Oral Daily 0900 ursodioL 300 mg Oral BID vancomycin 1,000 mg Intravenous Once zinc sulfate 220 mg Oral Daily 0900 Continuous Infusions: sodium chloride 0.9 % 20 mL/hr (10/08/24 1024) PRN Meds: oxyCODONE OR oxyCODONE, vancomycin intermittent/pulse dosing PLACEHOLDER ORDER Prior to Admission Meds: Home Medications Medication Sig Taking? Last Dose ciprofloxacin HCl (CIPRO) 500 MG tablet Take 1 tablet (500 mg total) by mouth daily. Yes Past Week folic acid (FOLVITE) 1 MG tablet Take 1 tablet (1 mg total) by mouth daily. Yes Past Week lactulose (CHRONULAC) 10 gram/15 mL solution Take 30 mLs (20 g total) by mouth 3 times a day as needed (goal 2-3 bowel movements a day). Yes 10/05/2024 Morning levothyroxine (SYNTHROID) 75 MCG tablet Take 1 tablet (75 mcg total) by mouth every morning before breakfast. Yes 10/05/2024 pantoprazole (PROTONIX) 40 MG tablet Take 1 tablet (40 mg total) by mouth every morning before breakfast. Yes Past Week potassium chloride (KLOR-CON M20) 20 MEQ tablet Take 2 tablets (40 mEq total) by mouth daily. Yes Past Week rifAXIMin (XIFAXAN) 550 mg Tab tablet Take 1 tablet (550 mg total) by mouth 2 times a day. Yes 10/05/2024 Morning sodium bicarbonate 650 MG tablet Take 2 tablets (1,300 mg total) by mouth 3 times a day. Yes 10/05/2024 Morning thiamine HCl (VITAMIN B-1) 100 MG tablet Take 1 tablet (100 mg total) by mouth daily. Yes Past Week traMADoL (ULTRAM) 50 mg tablet Take 1 tablet (50 mg total) by mouth every 12 hours as needed for Pain (Pain). Yes Past Week ursodioL (ACTIGALL) 300 mg capsule Take 1 capsule (300 mg total) by mouth 2 times a day. Yes 10/05/2024 Morning zinc sulfate (ZINCATE) 50 mg zinc (220 mg) capsule Take 1 capsule (220 mg total) by mouth daily. Yes Past Week Vitals: Temp: [97.2 ??F (36.2 ??C)-98.2 ??F (36.8 ??C)] 97.7 ??F (36.5 ??C) Heart Rate: [93-100] 93 Resp: [16-18] 16 BP: (102-125)/(52-72) 102/57 Intake/Output Summary (Last 24 hours) at 10/08/2024 1340 Last data filed at 10/08/2024 1317 Gross per 24 hour Intake 830 ml Output -- Net 830 ml Physical Exam Gen: No acute distress. Resting in bed. HEENT:. + scleral icterus. CV: Regular rate and rhythm. Lungs:Comfortable on RA Abdomen: Soft, nontender, distended Skin: jaundiced Neuro: Alert. No focal deficits. No asterixis Psych: Appropriate mood and affect. Laboratory: Lab Results Component Value Date WBC 3.7 (L) 10/08/2024 HGB 7.1 (L) 10/08/2024 HCT 20.0 (L) 10/08/2024 MCV 103.1 (H) 10/08/2024 PLT 37 (L) 10/08/2024 Lab Results Component Value Date NA 135 10/08/2024 K 3.2 (L) 10/08/2024 CL 106 10/08/2024 CO2 17 (L) 10/08/2024 BUN 61 (H) 10/08/2024 CREATININE 3.10 (H) 10/08/2024 GLUCOSE 106 (H) 10/08/2024 CALCIUM 9.0 10/08/2024 PHOS 4.0 10/08/2024 Lab Results Component Value Date AST 34 10/08/2024 ALT 16 10/08/2024 BILITOT 7.7 (H) 10/08/2024 BILIDIRECT 4.28 (H) 10/08/2024 PROT 4.7 (L) 10/08/2024 ALBUMIN 3.5 10/08/2024 ALBUMIN 3.5 10/08/2024 ALKPHOS 103 10/08/2024 Lab Results Component Value Date INR 2.4 (H) 10/08/2024 Lab Results Component Value Date HEPAIGM Nonreactive 10/07/2024 HEPBIGM Nonreactive 09/03/2024 Microbiology: Lab Results Component Value Date LABGRAM Cytospin Results: 09/09/2024 LABGRAM Polymorphonuclear Leukocytes Seen; 09/09/2024 LABGRAM No Organisms Seen; 09/09/2024 MELD 3.0: 36 at 10/08/2024 5:36 AM Calculated from: Serum Creatinine: 3.1 mg/dL (Using max of 3 mg/dL) at 10/08/2024 5:36 AM Serum Sodium: 135 mmol/L at 10/08/2024 5:36 AM Total Bilirubin: 7.7 mg/dL at 10/08/2024 5:36 AM Serum Albumin: 3.5 g/dL at 10/08/2024 5:36 AM INR(ratio): 2.4 at 10/08/2024 5:36 AM Age at listing (hypothetical): 39 years Sex: Male at 10/08/2024 5:36 AM Assessment/Plan: This is a 39 year old male history of ETOH cirrhosis d/b HE, ascites with SBP who is admitted for AMS. CT head with no acute findings. Unclear precipitant of his HE but suspect likely infectious etiology. Blood cultures and UA unremarkable. He reportedly had diagnostic paracentesis at OSH which reportedly showed normal appearance, 61 nucleated cells, <2000 RBCs 10% Polynuclear, 90% [place] nuc. Fluid cultures reportedly grew gram + rods. This is consistent with bacteriascites. Plan/Recommendation # encephalopathy # HE - Ascitic fluid studies at OSH growing gram+ rods with negative PMN consistent with bacteriascites. -blood culture and UA unremarkable -Unclear precipitant of HE but suspect likely infectious -continue empiric antibiotics; follow up speciation for ascitic fluid culture at OSH -continue rifaximin, Zinc, and lactulose; titrate to 3 bowel movements daily -Follow up C diff # NADIYA on CKD - Most likely 2/2 to HRS-NADIYA - Given multi-organ failure, patient not a candidate for terlipressin at this time -Management per IR -#Ascites #Bacteriascites -Antibiotics management as above . Continue prn paracentesis. -Antibiotics management per above #Varices- -history of bleeding Evs, s/p banding. EGD 07/29/2022 which showed grade 1 and 2 varices, no active bleeding. Not BB tolerant. Hb at baseline this admission w/o evidence of GIB. -EGD tomorrow, 10/09. NPO at midnight #Transplant: -patient has completed 8/12 weeks CD treatment required to be considered for transplant. -discussed at transplant selection meeting today. Will proceed with pre- transplant evaluation. Pre-transplant labs and imaging ordered -Will consult transplant nephrology for consideration for SLK given persistently low eGFR Patient seen and discussed with the attending physician, Dr Soto. Recommendations are final following attestation GERRI PETERSON MD PGY-5 10/08/2024, 1:40 PM [1] Allergies Allergen Reactions Adhesive Itching and Rash Tegaderm adhesive on Ivs, pt states its tolerable Duloxetine Other (See Comments) Became Manic Cosigned by Lino Soto MD at 10/08/2024 5:17 PM EDT Associated attestation - Lino Soto MD - 10/08/2024 5:17 PM EDT Attending Physician's Note: I have personally seen and examined the patient, reviewed the chart, imaging and labs and have discussed the case with Dr. Peterson, agree with his note and confirm it. 39 y.o. male with alcoholic cirrhosis, ascites, hepatic encephalopathy with recurrent admissions. Sober since Jun 2024. Recent episode of SBP. Currently admitted with altered mental status and acute on chronic kidney injury. Diagnostic paracentesis performed at OSH, showed bacteri ascites. Being treated for SBP. Mental status close to baseline PE Vitals: 10/08/24 1024 10/08/24 1117 10/08/24 1304 10/08/24 1519 BP: 114/64 110/52 102/57 104/50 BP Location: Left upper arm Left upper arm Right upper arm Patient Position: Lying Lying Lying BP Cuff Size: Regular Pulse: 93 94 93 101 Resp: 18 17 16 16 Temp: 97.2 ??F (36.2 ??C) 97.3 ??F (36.3 ??C) 97.7 ??F (36.5 ??C) 97.7 ??F (36.5 ??C) TempSrc: Oral Oral Axillary Oral SpO2: 100% 100% 96% 100% Appears very frail Sclera icteric Abdomen is soft, non-tender Awake and oriented x 3, no asterixis 1+ LE edema A&P 39 y.o. year old male with complex medical issues as detailed in HPI. Acute on chronic liver failure, most likely secondary to infection. Will continue Abx for now. Has at least 3 system failures so Terlipressin not ideal for NADIYA. Started on Midodrine 10 mg TID. Renal function slightly better. Moving forward with transplant evaluation. Since cannot get contrast due to renal dysfunction, please order a NM PET stress to be done tomorrow. Transplant nephrology to evaluate the patient for possible liver and kidney listing This note was completely edited, written and [...] Soto MD GI and Hepatology Staff * Yung Jain MD - 10/08/2024 9:18 AM EDT I have examined Julien Gilbert and reviewed his records for evaluation for a simultaneous kidney and liver transplant. Julien Gilbert meets the following requirements: Select Description Criteria Not yet Chronic kidney disease (CKD) with a measured or calculated glomerular filtration rate (GFR) less than or equal to 60 mL/min for greater than 90 consecutive days At least one of the following: -That the candidate has begun regularly administered dialysis as an end-stage renal disease (ESRD) patient in a hospital based, [facility]-hospital based, or home setting. -At the time of registration on the kidney waiting list,that the candidate???s most recent measuredor calculated creatinine clearance (CrCl) or GFR is less than or equal to 30 mL/min. -On a date after registration on the kidney waiting list, that the candidate???s measured or calculated CrCl or GFR is less than or equal to 30 mL/min No Sustained Acute Kidney Injury At least one of the following, or a combination of both of the following, for the last 6 weeks: -That the candidate has been on dialysis at least once every 7 days. -That the candidate has a measured or calculated CrCl or GFR less than or equal to 25 mL/min at least once every 7 days. - If the candidate???s eligibility is not confirmed at least once every seven days for the last 6 weeks, the candidate is not eligible to receive a liver and a kidney from the same donor no Metabolic Disease: A diagnosis of at least one of the following: Hyperoxaluria Atypical hemolytic uremic syndrome (HUS) from mutations in factor H or factor I Familial non-neuropathic systemic amyloidosis Methylmalonic aciduria Plan: At this time, Julien Gilbert I Yung Jain MD potential candidate for a simultaneous liver-kidney transplant. I recommend that Mr. Gilbert complete the following in addition to his standard evaluation requirements: -HLA typing - had renal biopsy 2 years ago that was inconclusive but pre summed RCC -CKD from uncontrolled HTN -smoked for 10 years, (3 cigarettes a day ) -never been on iHD In the event that Julien Gilbert becomes ineligible for a liver transplant, he will no longer be a candidate for a kidney transplant and his referral will be closed. This has been discussed with Mr. Julien Gilbert. I have discussed this plan with the tender coordinator and the liver transplant team. Cosigned by Aaron Gonzalez MD at 10/08/2024 3:18 PM EDT Associated attestation - Aaron Gonzalez MD - 10/08/2024 3:18 PM EDT Pt seen, examined, and discussed with fellow on 10/08/2024. reviewed the chart including the labs and imaging studies. My additional comments below. 39 y.o. male with a PMH of decompensated EtOH cirrhosis (complicated by EV, HRS, ascites, HE), HTN Txp nephrology consulted for SLK eval. At this present time, pt does not meet acute or chronic criteria for kidney transplant and would have to reassess in ~2 weeks. Currently is at 77 consecutive days (Since July 21) for GFR <60 and If eGFR remains <30 until October 22, then would meet criteria and COULD be a candidate at that time. CKD 2/2 to presumed hepatorenal syndrome. Does have history of multiple episodes of NADIYA, since July. History of left renal mass and underwent Cryo ablation on 11/06/2022. Biopsy The scant nature of the atypical cells precludes a definitive diagnosis, but the differential would include a clear cell renal cell carcinoma; however, other tumors such as an atypical renal cyst and a clear cell papillaryrenal cell tumor cannot be entirely excluded on this small sample --on recent imaging is Ill-defined partially calcified left renal hypodense lesion measuring up to 3.0 x 2.3 cm. Will need follow up accordingly. He does have multiple stones in the right kidney too Denied any UTIs Never had dialysis On iv albumin this admisson Aaron Gonzalez MD, FASN, MEd * Jodi Ortiz, PharmD - 10/08/2024 9:13 AM EDT Images from the original note were not included. [facility] Clinical Pharmacy Service: Vancomycin Monitoring Consult Julien Gilbert is a 39 y.o. male currently being treated empirically for Abdominal/Pelvic Infection Patient is allergic to adhesive and duloxetine. Pharmacy consulted for vancomycin management by Blue Team. Current Anti-Infectives Dose Frequency Start End cefTRIAXone (ROCEPHIN) 2 g in sodium chloride 0.9% 20 mL IV Push 2 g Every 24 hours 10/06/2024 -- Admin Instructions: ADMINISTER IV PUSH. Infuse over 5 minutes. Draw up 20 mL Sodium Chloride 0.9% into empty syringe. Inject 20 mL into vial of Ceftriaxone. Shake well. Withdraw volume into syringe and administer immediately. Route: Intravenous rifAXIMin (XIFAXAN) tablet 550 mg 550 mg 2 times daily 10/06/2024 -- Route: Oral vancomycin (VANCOCIN) 1,000 mg in sodium chloride 0.9 % 250 mL [id number] 1,000 mg Once 10/08/2024 10/09/2024 Admin Instructions: Contact pharmacy if there is a question/concern of whether vancomycin should begiven based on serum drug levels. Use [id number] Adapter - Mix Thoroughly Before Administration Route: Intravenous vancomycin intermittent/pulse dosing PLACEHOLDER ORDER Use as directed PRN 10/06/2024 -- Admin Instructions: Patient is receiving intermittent/pulse vancomycin dosing based on random serumlevels. NOTE:This is NOT an active medication order. If a dose of vancomycin is needed, it must be entered as a one-time dose by physicians or pharmacists. Route: Intravenous documented within (last 72 hours) Date/Time Action Medication Dose Rate 10/06/24 1413 New Bag vancomycin (VANCOCIN) 2,750 mg in sodium chloride 0.9 % 500 mL IVPB 2,750 mg 200 mL/hr --Objective Data-- Vitals: 10/07/24201910/07/24 2135 10/07/24 2334 10/08/24 0728 BP: 107/57 112/58 115/59 Pulse: 100 99 100 98 Resp: 16 18 16 Temp: 97.6 ??F (36.4 ??C) 97.4 ??F (36.3 ??C) 98.2 ??F (36.8 ??C) TempSrc: Oral Oral Axillary SpO2: 100% 100% 100% 100% I/O last 3 completed shifts: In: 1250 [P.O.:1200; IV Piggyback:50] Out: - WBC, BUN, Creatinine (Last 7 days) Today 0741 Today 0536 Yesterday 0600 WBC 3.7 3.2 3.3 BUN -- 61 64 Creatinine -- 3.10 3.38 Patient weight not recorded Estimated CrCl: ~35-45 mL/min --Cultures-- Microbiology Results Date and Time Order Name Sensitivity Status Organisms Specimen ID Source 10/07/2024 10:50 PM Giardia Cryptosporidium Antigens Final [id number] 10/07/2024 10:50 PM Ova and Parasite Comprehensive w/ Giardia/Crypto In process [id number] Feces 10/06/2024 1:04 AM #2 Blood culture-Peripheral site 2 Preliminary [id number] Peripheral 10/06/2024 1:04 AM #1 Blood culture-Peripheral site 1 Preliminary [id number] Peripheral --Vancomycin Concentrations-- Lab Results (Last 7 days) Today 0536 Yesterday 0600 Vanc Rdm 16.0 21.1 --Assessment and Plan-- Patient is a 39 y.o. male being treated with vancomycin empirically for Abdominal/Pelvic infection.(OSH para cultures growing GPCs) Vancomycin random this morning 16 mg/L. Will give a 10 mg/kg pulse dose today (1000 mg total) Will check vancomycin serum concentration with am labs, prior to next dose. Goal vancomycin trough of 15-20 mg/L Pharmacy will continue to monitor therapy for efficacy and toxicity. Thank you for the consult. Jodi Ortiz PharmD Clinical Locksmith, Internal Medicine Preferred contact: [employer] [id number] Pager: [phone] October 08, 2024 9:13 AM * Eileen Schroeder MD, PhD - 10/08/2024 8:30 AM EDT Department of Internal Medicine Daily Progress Note Chief Complaint / Reason for Follow-Up Julien Gilbert is a 39 y.o. male on hospital day 3. The principal reason for today's follow up visit is Metabolic encephalopathy. NAEON Pt fully conversational today. A&O x 4. Denied Chest pain, fevers/chills and SOB. Stated that his abdomen does seem more tight today. Consent obtained to give 1u of pRBCs Review of Systems (Focused) Negative except as mentioned above Medications Scheduled Meds: cefTRIAXone (ROCEPHIN) IVPB 2 g Intravenous Q24H folic acid 1 mg Oral Daily 0900 heparin 5,000 Units Subcutaneous 3 times per day lactulose 20 g Oral TID levothyroxine 75 mcg Oral QAM AC methocarbamoL 500 mg Oral TID pantoprazole 40 mg Oral QAM AC rifAXIMin 550 mg Oral BID sodium bicarbonate 1,300 mg Oral TID thiamine HCl 100 mg Oral Daily 0900 ursodioL 300 mg Oral BID vancomycin 1,000 mg Intravenous Once zinc sulfate 220 mg Oral Daily 0900 Continuous Infusions: sodium chloride 0.9 % 20 mL/hr (10/08/24 1024) PRN Meds: oxyCODONE OR oxyCODONE, vancomycin intermittent/pulse dosing PLACEHOLDER ORDER Vital Signs Temp: [97.2 ??F (36.2 ??C)-98.2 ??F (36.8 ??C)] 97.7 ??F (36.5 ??C) Heart Rate: [93-100] 93 Resp: [16-18] 16 BP: (102-125)/(52-72) 102/57 Intake/Output Summary (Last 24 hours) at 10/08/2024 1312 Last data filed at 10/08/2024 1100 Gross per 24 hour Intake 480 ml Output -- Net 480 ml Physical Exam Physical Exam Constitutional: Appearance: He is ill-appearing. He is not diaphoretic. HENT: Head: Normocephalic and atraumatic. Mouth/Throat: Mouth: Mucous membranes are moist. Pharynx: Oropharynx is clear. Eyes: General: Scleral icterus present. Extraocular Movements: Extraocular movements intact. Cardiovascular: Rate and Rhythm: Normal rate and regular rhythm. Pulses: Normal pulses. Pulmonary: Effort: Pulmonary effort is normal. Breath sounds: Normal breath sounds. Abdominal: General: There is distension. Tenderness: There is abdominal tenderness. Comments: Increase in ab distention and tenderness noted on exam today Musculoskeletal: Cervical back: Tenderness present. Right lower leg: Edema present. Left lower leg: Edema present. Comments: 2+ edema Skin: General: Skin is dry. Coloration: Skin is jaundiced. Neurological: General: No focal deficit present. Mental Status: He is alert and oriented to person, place, and time. Cranial Nerves: Cranial nerves 2-12 are intact. No cranial nerve deficit. Motor: No weakness. Psychiatric: Mood and Affect: Mood normal. Behavior: Behavior normal. Thought Content: Thought content normal. Cognition and Memory: Cognition normal. Laboratory Data CBC 10/08/2024 \ 7.1 / 3.7 \ / 37 / \ / 20.0 \ Differential 09/16/2024 N 84.2 L 8.0 M 5.1 E 1.5 B 0.7 Renal 10/08/2024 135 106 61 / ___ __ / 106 \ 3.2 17 3.10 \ Ca 9.0 (10/08/2024) Mg 1.9 (10/08/2024) Phos 4.0 (10/08/2024) Lipids Lab Results Component Value Date CHOLTOT <25 10/07/2024 TRIG 30 10/07/2024 HDL 4 (L) 10/07/2024 LDL See Note 10/07/2024 LFTs 10/08/2024 \ 7.7 / \ 4.28 / 34 \ / 16 / \ / 103 \ PT/INR/PTT - 10/08/2024 PT 26.9 INR 2.4 PTT No results found for requested labs within last 3600 days. Lab 10/06/24 1151 COLOR, URINE Yellow CLARITY Clear SPECIFIC GRAVITY, URINE 1.014 PH UA 6.0 PROTEIN UA Negative GLUCOSE UA Negative KETONES UA Negative BILIRUBIN UA Negative BLOOD UA Negative NITRITE UA Negative UROBILINOGEN UA <2.0 LEUKOCYTES UA Negative MELD 3.0: 36 at 10/08/2024 5:36 AM Calculated from: Serum Creatinine: 3.1 mg/dL (Using max of 3 mg/dL) at 10/08/2024 5:36 AM Serum Sodium: 135 mmol/L at 10/08/2024 5:36 AM Total Bilirubin: 7.7 mg/dL at 10/08/2024 5:36 AM Serum Albumin: 3.5 g/dL at 10/08/2024 5:36 AM INR(ratio): 2.4 at 10/08/2024 5:36 AM Age at listing (hypothetical): 39 years Sex: Male at 10/08/2024 5:36 AM No results found for: NTPROBNP Lab Results Component Value Date TSH 0.81 10/07/2024 FREET4 0.74 09/03/2024 Diagnostic Studies US Duplex [id number] Comp Final Result IMPRESSION: ABDOMEN 1. Cirrhotic liver morphology. No suspicious hepatic lesion. 2. Moderate volume of ascites. 3. Splenomegaly. LIVER DOPPLER 1. Patent hepatic vasculature with normal directional flow. 2. Recanalized umbilical vein as a sequela of portal hypertension, with multiple venous collateralsbordering the falciform ligament. Findings similar to prior. Report Verified by: Alberto Rodriguez MD at 10/07/2024 4:26 PM EDT US Abdomen Complete Final Result IMPRESSION: ABDOMEN 1. Cirrhotic liver morphology. No suspicious hepatic lesion. 2. Moderate volume of ascites. 3. Splenomegaly. LIVER DOPPLER 1. Patent hepatic vasculature with normal directional flow. 2. Recanalized umbilical vein as a sequela of portal hypertension, with multiple venous collateralsbordering the falciform ligament. Findings similar to prior. Report Verified by: Alberto Rodriguez MD at 10/07/2024 4:[address] Head WO contrast Final Result IMPRESSION: 1. No acute intracranial abnormality. 2. No intracranial mass effect or hemorrhage. Report Verified by: Sher Abrams MD at 10/06/2024 4:50 PM EDT X-ray Portable Chest Final Result IMPRESSION: Negative portable chest. Report Verified by: Eduardo Franks MD at 10/06/2024 2:33 AM EDT DXA bone density axial skeleton (Results Pending) X-ray Mandible minimum 4-views (Results Pending) CT Cardiac with Coronary Evaluation (Results Pending) CT Thoracic Structures-Rad Interp (Results Pending) Assessment & Plan Julien Gilbert is a 39 y.o. male on HD# 3 with Metabolic encephalopathy. The medical issues being addressed in today's encounter are as follows: Principal Problem: Metabolic encephalopathy Active Problems: Decompensated cirrhosis (CMS-HCC) NADIYA (acute kidney injury) (CMS-HCC) Thrombocytopenia (CMS-HCC) Renal mass, left CKD (chronic kidney disease) stage 4, GFR 15-29 ml/min (CMS-HCC) Metabolic acidosis with normal anion gap and bicarbonate losses GERD (gastroesophageal reflux disease) SBP (spontaneous bacterial peritonitis) (CMS-HCC) Aphasia Neck pain with history of cervical spinal surgery #Encephalopathy Pt noted to have waxing and waning encephalopathy at home over the last few days, initially suspected to be hyperammonemia by and patient, somewhat improved initially with lactulose; however encephalopathy subsequently worsened again. Notably, pt has a history of decompensated cirrhosis episodes including HRS and hepatic encephalopathy. Currently maintain high suspicion for toxic/metabolic encephalopathy in the setting of possible decompensated alcoholic cirrhosis. Continued to have diarrheal episodes despite completion of oral vancomycin for recent C. Diff. OSH labs with low bicarb to 17 and normal lactate, so will give consideration to ongoing C. Diff. - Ammonia level 10/06: 77 within normal range - UDS - Ethanol level, Tylenol level. Salicylate level -10/06: All Low, no concern for toxin-induced etiology at this time. - PETH labs - Continue home lactulose and rifaximin - UA, Blood Cx 10/07: No growth to date - Follow up OSH paracentesis studies, will continue CTX until report communicated -Report showed growth of Gram + rods, pt started on IV Vancomycin - CXR d/t RLL wheezing - COVID/Flu/RSV(-) #Decompensated Alcoholic Cirrhosis Pt abdomen non-acute. Does appear significantly jaundiced with scleral icterus. Bedside paracentesis performed at OSH. Concern for possible SBP but reassured by lack of fever and hemodynamically stable status. - MELD labs Daily Improving as of 10/08. - Hepatitis Screening - RUQ Ultrasound with Doppler to evaluate for Portal Vein Thrombosis - Hold home Cipro prophylaxis for SBP - Continue home Zinc - Continue home ursodiol - Asked for paracentesis studies to be sent from OSH for review Growing gram + cocci. Vanc added to IV Abx Regimen - Hepatology consult placed, appreciate recs EGD on 10/09, NPO at midnight. - Scheduled for 3 days of Albumin infusion Completed on 10/07 -GI planning for a Paracentesis this week, likely to occur after EGD is performed #Anemia Pt has recorded HgB of 6.9 on 10/08. Likely dilutional due to albumin treatment. Plan to transfuse and order hemolysis labs due to know liver dysfunction. -Retic, LDH, & Haptoglobin labs orders -Consent to transfuse, Type and Screen orders -1u of pRBCs to be transfused with post-transfusion CBC ordered #NAGMA, resolved Pt found to have a pH of 7.21 upon admission to , with a HCO3 18 and pCO2 41. Pt is Rx Bicarb tablets at home and has a known history of CKD. pH was improved 7.27 later in the morning. NAGMA likely due to GI loss due to lactulose and diuresis. -Restarted oral Bicarb -Improved on 10/07 #SBP Previously was previously on Cipro for SBP prophylaxis. Pt started on 2g of IV CTX at admission.. -Outside results obtained on 10/07 showed growth of Gram+ rods from most recent therapeutic paracentesis. -10/07: Started on IV Vancomycin based on results from outside facility. Will engage with them daily #Aphasia Patient appears to be unable to name objects when asked, but can readily follow commands. Additionally, pt is unable to verbally answer orientation questions. Authors was able to see pt is frustratedin his inability to verbally communicate. It appears that this waxes and wanes and could be attributed to his encephalopathy, though patient has never presented with this symptom and no head imaging has been performed at [facility]. -CT Head w/o contrast -Imaging showed no concern for acute etiology of aphasia. -Will CTM, most likely due to metabolic/toxic encephalopathy #H/o GI Bleed Pt with history of GI bleed in setting of gastric varices, for which IR at OSH had to place 17 coils. 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 - Has previously been on beta blockade for variceal prevention, but did not tolerate beta dominic due to hypotension. -EGD scheduled for 10/09 #Non-Oliguric NADIYA on CKD Patient noted on OSH labs to have creatinine of 3.6. Baseline creatinine appears to range 2.5-2.9. Per , pt makes urine and has never required dialysis. - Bladder Ultrasound and PVR - UA, urine lytes - Albumin challenge tonight given his NADIYA in setting of hepatic disease - Continue home bicarb tablets - Nephro consult, appreciate recs - Hold home diuretics - Strict I/O's #h/o Left Sided RCC s/p cryoablation Cryoablation was done 2022. On CT A/P at OSH, pt noted to have persistent L sided exophytic renal mass. -renal consults and Renal Transplant team is followin #Hepatic Lesion of [place] etiology OSH CT A/P with iso-attenuating round nodular outpouching in inf R lobe measuring 3.6 x 3.8cm. Differential to include cyst vs metastatic RCC vs primary hepatic tumor - Hepatology consult, appreciate recs - Consider MRI inpatient #History of AUD - Continue home thiamine repletion - PETH and ETOH level as above #History of Cervical Fusion #Neck Pain -PRN Oxy Pain Meds -Robaxin TID #GERD - continue home protonix #HTN - Continue home #HLD #Hypothyroidism - continue home synthroid Nutrition: Diet/Nutrition Orders Diet NPO past midnight Except for: for procedure, except sips with meds Frequency: Effective Number of Occurrences: Until Specified Order Questions: Except for for procedure Except for except sips with meds Diet Regular(7) Frequency: Effective Now Number of Occurrences: Until Specified Order Questions: Suicide/Behavior Risk Modification? No Dietary nutrition supplements Frequency: TID Number of Occurrences: Until Specified Order Comments: Vanilla boost Order Questions: Select Supplement: Boost-1 kcal/ml supplement ([facility] only) Code Status: Full Code Signed: EILEEN SCHROEDER MD, PhD 10/08/2024, 1:12 PM Cosigned by Fouzia Rene MD at 10/08/2024 6:43 PM EDT Associated attestation - Fouzia Rene MD - 10/08/2024 6:43 PM EDT Internal Medicine Attending Supervision Note - Hospital Day# 3 The patient was seen today on rounds with the medical team. I have personally interviewed and performed the physical exam and medical decision making. I conducted an independent review of labs, procedures and imaging pertinent to today's encounter through the EMR. I reviewed the documentation by the medical steamtable attendant railroad and agree as documented. Any additions or clarifications are listed below. Daily plan was discussed with patient at bedside and questions addressed. Patient ID: Julien Gilbert is a 39 y.o. male currently admitted for Metabolic encephalopathy Supplemental History/ ROS: No acute events overnight He does note that his abdomen is more distended today Denies dyspnea, lightheadedness, chest pain No notable bleeding Exam: Sitting on the side of the bed, NAD + jaundice NCAT, EOMI, + scleral icterus RRR, no appreciable murmur Normal resp effort, lungs CTAB, bibasilar crackles Abd soft with distention, mild tenderness 2+ LE edema bilateral Labs and Imaging reviewed. Medical Decision Making/ Assessment & Plan: Julien Gilbert is a 39 y.o. male with admitted for Metabolic encephalopathy Active Problems: Anemia: Worsening anemia today with hemoglobin down to 6.9 this morning. He is asymptomatic. Anemiais likely multifactorial including iatrogenic versus chronic disease versus cirrhosis versus bone marrow suppression versus other. Will check labs for hemolysis. Transfuse 1 unit PRBC today. Will continue to monitor. Metabolic encephalopathy: Mostly resolved. Likely related to combination of hepatic, metabolic, andpossibly infectious insults. - Continue home lactulose and rifaximin Spontaneous Bacterial Peritonitis ([facility]): Cultures from OSH are growing gram- positive organisms.We continue to await speciation. He remains afebrile and vital signs have been stable. - Continue vancomycin and ceftriaxone for now. - Will follow-up on speciation and sensitivities. Decompensated cirrhosis ([facility]): Appreciate hepatology consult. He has started his transplant evaluation and will continue while inpatient. - MELD labs daily - Continue home regimen with ursodiol, rifaximin and lactulose - Cardiac and thoracic CT scans scheduled today with stress test. These may be affected by the anemia but will reschedule if needed - Multiple labs pending - Planning for EGD tomorrow NADIYA (acute kidney injury) on CKD ([facility]): Appreciate nephrology consult. Likely has hepatorenal syndrome. Now s/p albumin X3. baseline creatinine presumed to be around 2.5. Creatinine slightly lower today. We will continue to monitor. Neck Pain: He has a history of cervical surgery. He reports that lidocaine patches did not help. Given his renal function, will use oxycodone as needed for pain. Continue to monitor. Principal Problem: Metabolic encephalopathy Active Problems: Decompensated cirrhosis ([facility]) Acute kidney injury superimposed on CKD ([facility]) Thrombocytopenia ([facility]) Renal mass, left Metabolic acidosis with normal anion gap and bicarbonate losses GERD (gastroesophageal reflux disease) Anemia SBP (spontaneous bacterial peritonitis) ([facility]) Neck pain with history of cervical spinal surgery Continue management for other medical problems per resident / AI note. Disp: Anticipate DC home with spouse when medically ready. Awaiting final speciation for de-escalation of antibiotics and final recs from hepatology. FOUZIA RENE MD Attending Physician Department of Internal Medicine 10/08/2024 Medical Decision Making: Severe exacerbation of chronic illness Acute or chronic illness that may pose threat to life or function Discussed with physician/SAWYER from another specialty or practice, other licensed professional (PT/OT/FLIGHT SURVEYOR/RT), or a non-medical community professional: Nephrology, Hepatology Labs reviewed (1 pt each): CBC, CMP, INR & other daily labs Review of notes from a different specialty or different practice: Nephrology, Anesthesiology hepatology, * Ignacio Queen MD - 10/08/2024 8:05 AM EDT Images from the original note were not included. Department of Internal Medicine Nephrology & Hypertension Consult History & Physical Note Patient: Julien Gilbert Date of Admit: 10/05/2024 Referring physician: Fouzia Rene MD Interval hx Seen and examined Still with intermittent confusion per at bedside, 24 hour urine output not documented Cr 3.10<3.38 < 3.4 Assessment: Renal Function: Cr: 3.10 Bun: 61 on 10/08/2024 NADIYA on CKD, last discharge creatinine 2.4 Likely HRS UA bland Urine lytes <10/< 15/ 50 Recent admission in August with NADIYA in context of decompensated cirrhosis treated in the lines of HRS. Electrolytes: Na: 135 K: 3.2 Cl: 106 Ma.9 Ca: 9.0 Phos: 4.0 Hyponatremia Acid Base Status: Anion Gap: 12 Bicarb: 17 NAGMA Hypertension/CVS: BP: 115/59 Goal <130/80 Volume Status: Mineral Bone Disease: Ca: 9.0 PO4: 4.0 Alb: 3.5; 3.5 PTH: No results found for requested labs within last 3600 days. on No results found for requested labs within last 3600 days. Vit D: No results found for requested labs within last 3600 days. on No results found for requestedlabs within last 3600 days. No current issues Anemia of CKD: Hgb 6.9 Hct 18.9 Plt 34 Iron No results found for requested labs [...] for requested labs within last 3600 days. Anemia Plan: Nadiya on CKD, likely HRS, likely triggered by recent para and diarrhea, recent cr around 2.4, rule 0ut SBP, will obtain OSH records 2. Obtain renal usg, outside imaging not yet available in chart 3. Continue Bicarb tablets 1300 3 times daily for NAGMA related to diarrhea Strictly monitor urine output No Indication for APPLICATION SECURITY ARCHITECT Not a candidate for terlipressin per liver due to HE, liver ans kidney failure, on midodrine tid Liver transplant workup per GI/ Primary team, considering for [facility] Thank you for allowing us to participate in this patient's care. Discussed with Consult Staff. Ignacio Queen MD Renal Fellow Pager # [phone] Chief Complaint No chief complaint on file. Reason for Consult Nadiya on CKD Decompensated cirrhosis History of Present Illness Julien Gilbert is a 39 y.o. y/o male past medical history of decompensated cirrhosis due to alcohol abuse with admitted varices, HRS ascites, hepatic encephalopathy being worked up for liver transplanthypothyroidism CKD baseline 2.5-2.9 , left-sided RCC status post ablation, small right kidney? Who presented with altered mental status and weakness since Sunday. Nephrology consulted for NADIYA on CKD, concern for hepatorenal syndrome.` Patient came from [facility], paracentesis was performed yesterday on 10/05? Fluid pending for SBP analysis Histories he has a past medical history [...] reports current drug use. Drug: Marijuana. Allergies[1] Medications: Home Medications: Home Medications Medication Sig Taking? Last Dose ciprofloxacin HCl (CIPRO) 500 MG tablet Take 1 tablet (500 mg total) by mouth daily. Yes Past Week folic acid (FOLVITE) 1 MG tablet Take 1 tablet (1 mg total) by mouth daily. Yes Past Week lactulose (CHRONULAC) 10 gram/15 mL solution Take 30 mLs (20 g total) by mouth 3 times a day as needed (goal 2-3 bowel movements a day). Yes 10/05/2024 Morning levothyroxine (SYNTHROID) 75 MCG tablet Take 1 tablet (75 mcg total) by mouth every morning before breakfast. Yes 10/05/2024 pantoprazole (PROTONIX) 40 MG tablet Take 1 tablet (40 mg total) by mouth every morning before breakfast. Yes Past Week potassium chloride (KLOR-CON M20) 20 MEQ tablet Take 2 tablets (40 mEq total) by mouth daily. Yes Past Week rifAXIMin (XIFAXAN) 550 mg Tab tablet Take 1 tablet (550 mg total) by mouth 2 times a day. Yes 10/05/2024 Morning sodium bicarbonate 650 MG tablet Take 2 tablets (1,300 mg total) by mouth 3 times a day. Yes 10/05/2024 Morning thiamine HCl (VITAMIN B-1) 100 MG tablet Take 1 tablet (100 mg total) by mouth daily. Yes Past Week traMADoL (ULTRAM) 50 mg tablet Take 1 tablet (50 mg total) by mouth every 12 hours as needed for Pain (Pain). Yes Past Week ursodioL (ACTIGALL) 300 mg capsule Take 1 capsule (300 mg total) by mouth 2 times a day. Yes 10/05/2024 Morning zinc sulfate (ZINCATE) 50 mg zinc (220 mg) capsule Take 1 capsule (220 mg total) by mouth daily. Yes Past Week Inpatient Meds: cefTRIAXone (ROCEPHIN) IVPB 2 g Intravenous Q24H folic acid 1 mg Oral Daily 0900 heparin 5,000 Units Subcutaneous 3 times per day lactulose 20 g Oral TID levothyroxine 75 mcg Oral QAM AC methocarbamoL 500 mg Oral TID pantoprazole 40 mg Oral QAM AC potassium chloride 40 mEq Oral Once Followed by potassium chloride 40 mEq Oral Once rifAXIMin 550 mg Oral BID sodium bicarbonate 1,300 mg Oral TID thiamine HCl 100 mg Oral Daily 0900 ursodioL 300 mg Oral BID zinc sulfate 220 mg Oral Daily 0900 Continuous Infusions: sodium chloride 0.9 % PRN medications: oxyCODONE OR oxyCODONE, vancomycin intermittent/pulse dosing PLACEHOLDER ORDER Physical Exam Patient Vitals for the past 4 hrs: BP Temp Temp src Pulse Resp SpO2 10/08/24 0728 115/59 98.2 ??F (36.8 ??C) Axillary 98 16 100 % Wt Readings from Last 3 Encounters: 09/05/24 (!) 262 lb 9.6 oz (119.1 kg) 09/02/24 (!) 258 lb (117 kg) 08/17/24 (!) 242 lb 11.2 oz (110.1 kg) Intake/Output Summary (Last 24 hours) at 10/08/2024 0805 Last data filed at 10/08/2024 0549 Gross per 24 hour Intake 1010 ml Output -- Net 1010 ml General appearance: NAD Lungs: No RD, CTA b/l Heart: RRR Abdomen: distended, non tender Extremities: no leg edema Skin: No rashes/lesions noted, no skin tears Psych: lethargic, but answering appropriately Laboratory Data and Imaging Recent Labs 10/06/24 0737 10/07/24 0610/08/24 0536 WBC 5.6 3.3* 3.2* HGB 9.0* 7.4* 6.9* HCT 25.3* 21.5* 18.9* MCV 101.2* 104.1* 101.6* PLT 52* 35* 34* Recent Labs 10/06/24 0401 10/06/24 0737 10/07/24 0610/08/24 0536 NA 129* 129* 132* 135 K 4.7 4.4 3.9 3.2* CL 100 100 103 106 CO2 16* 18* 19* 17* BUN 61* 62* 64* 61* CREATININE 3.49* 3.40* 3.38* 3.10* GLUCOSE 104* 98 111* 106* CALCIUM 9.2 9.5 9.1 9.0 MG 1.8 -- 1.7 1.9 PHOS 5.3* -- 4.2 4.0 ANIONGAP 13 11 10 12 ALBUMIN 3.4* 3.4* 3.6 3.6 3.6 3.5 3.5 Recent Labs 10/06/24 0401 10/06/24 0737 10/07/24 0600 10/08/24 0536 CALCIUM 9.2 9.5 9.1 9.0 PHOS 5.3* -- 4.2 4.0 No results found for: IRON , TIBC , FERRITIN No results found for: [id number] , FOLATE Lab Results Component Value Date COLORU Yellow 10/06/2024 CLARITYU Clear 10/06/2024 PROTEINUA Negative 10/06/2024 PHUR 6.0 10/06/2024 LABSPEC 1.014 10/06/2024 GLUCOSEU Negative 10/06/2024 BLOODU Negative 10/06/2024 LEUKOCYTESUR Negative 10/06/2024 NITRITE Negative 10/06/2024 BILIRUBINUR Negative 10/06/2024 UROBILINOGEN <2.0 10/06/2024 RBCUA 1 09/03/2024 WBCUA 1 09/03/2024 BACTERIA Occasional (A) 09/03/2024 Recent Labs 10/06/24 1325 NAUR <10 KUR 50.0 CLUR <15 No results found for: MICROALBUR , [id number] In addition to the above an extensive amount of complex data in the patients lab and chart were reviewed. Diagnostic Imaging Reviewed in EMR. This note was copied forward from previously composed documentation. I have reviewed and updated the history, review of systems, physical exam, data, assessment and plan of the note so that it reflects the evaluation and management of the patient on 10/08/2024. [1] Allergies Allergen Reactions Adhesive Itching and Rash Tegaderm adhesive on Ivs, pt states its tolerable Duloxetine Other (See Comments) Became Manic Cosigned by Colten Huertas MD at 10/08/2024 11:04 PM EDT Associated attestation - Colten Huertas MD - 10/08/2024 11:04 PM EDT ATTESTATION I saw Mr/Ms Julien Gilbert with renal fellow / consult team I went through all the events leading to hospitalization, primary teams notes, pertinent laboratorywork up, history and physical examination. I agree with the documentation and plan mentioned in thenote by the fellow. I was present at the time of exam and history taking. DOS 10/08/2024 Julien Gilbert is a 39 y.o. male with has a past medical history of Alcoholic cirrhosis of liver (CMS-HCC), Alcoholic hepatitis, Esophageal varices (CMS-HCC), Hepatorenal syndrome (CMS-HCC), Hypertension, Other hyperlipidemia (07/26/2024), Renal cell carcinoma (CMS-HCC), Thrombocytopenia (CMS-HCC), and Thyroid disease. who presents for NADIYA in the context of his liver disease My additional comments are as follow: Pt seen alert today Pts beside Non oliguric Scr marginal improvement FOCUSED PHYSICAL EXAM Vitals: 10/08/24 2146 BP: Pulse: 99 Resp: Temp: SpO2: 100% Focused clinical examination was conducted today Patient is clinically euvolemic 1+ pedal edema Chest sounds clear Heart sounds are normal Gross neurological system exam unremarkable Abdo distended Asterixis + PERTINENT LABS Anemia Lab Results Component Value Date WBC 5.6 10/08/2024 HGB 8.3 (L) 10/08/2024 HCT 24.6 (L) 10/08/2024 MCV 103.2 (H) 10/08/2024 PLT 39 (L) 10/08/2024 Lab Results Component Value Date IRON 81 10/08/2024 TIBC SEE COMMENT 10/08/2024 FERRITIN 706.9 (H) 10/08/2024 Acidosis/Electrolytes Lab Results Component Value Date CREATININE 3.10 (H) 10/08/2024 BUN 61 (H) 10/08/2024 NA 135 10/08/2024 K 3.2 (L) 10/08/2024 CL 106 10/08/2024 CO2 17 (L) 10/08/2024 CKD MBD Lab Results Component Value Date CALCIUM 9.0 10/08/2024 PHOS 4.0 10/08/2024 Lab Results Component Value Date [id number] 7.1 (L) 10/08/2024 PLAN Continue IV albumin Monitor renal panel No indication for dialysis Pt will be seen by TxP neph for SLK assessment MELD 3.0: 36 at 10/08/2024 5:36 AM Calculated from: Serum Creatinine: 3.1 mg/dL (Using max of 3 mg/dL) at 10/08/2024 5:36 AM Serum Sodium: 135 mmol/L at 10/08/2024 5:36 AM Total Bilirubin: 7.7 mg/dL at 10/08/2024 5:36 AM Serum Albumin: 3.5 g/dL at 10/08/2024 5:36 AM INR(ratio): 2.4 at 10/08/2024 5:36 AM Age at listing (hypothetical): 39 years Sex: Male at 10/08/2024 5:36 AM Colten Huertas MD, KISHOR LIN FNKF folded cloth taper Div. of Nephrology [facility] E-mail: [email or web address] This note was completely edited, written and [...] my current evaluation and management for this patient which was performed on 10/08/2024 * Tani TroyD - 10/07/2024 5:01 PM EDT Images from the original note were not included. [facility] Clinical Pharmacy Service: Vancomycin Monitoring Consult Julien Gilbert is a 39 y.o. male currently being treated empirically for Abdominal/Pelvic Infection Patient is allergic to adhesive and duloxetine. Pharmacy consulted for vancomycin management by Saravanan Umanzor. Current Anti-Infectives Dose Frequency Start End cefTRIAXone (ROCEPHIN) 2 g in sodium chloride 0.9% 20 mL IV Push 2 g Every 24 hours 10/06/2024 -- Admin Instructions: ADMINISTER IV PUSH. Infuse over 5 minutes. Draw up 20 mL Sodium Chloride 0.9% into empty syringe. Inject 20 mL into vial of Ceftriaxone. Shake well. Withdraw volume into syringe and administer immediately. Route: Intravenous rifAXIMin (XIFAXAN) tablet 550 mg 550 mg 2 times daily 10/06/2024 -- Route: Oral vancomycin intermittent/pulse dosing PLACEHOLDER ORDER Use as directed PRN 10/06/2024 -- Admin Instructions: Patient is receiving intermittent/pulse vancomycin dosing based on random serumlevels. NOTE:This is NOT an active medication order. If a dose of vancomycin is needed, it must be entered as a one-time dose by physicians or pharmacists. Route: Intravenous documented within (last 72 hours) Date/Time Action Medication Dose Rate 10/06/24 1413 New Bag vancomycin (VANCOCIN) 2,750 mg in sodium chloride 0.9 % 500 mL IVPB 2,750 mg 200 mL/hr --Objective Data-- Vitals: 10/07/24 0734 10/07/24 1100 10/07/24 1109 10/07/24 1237 BP: 98/46 124/60 119/68 Pulse: 93 93 94 86 Resp: 18 18 16 Temp: 98.2 ??F (36.8 ??C) 97.5 ??F (36.4 ??C) TempSrc: Oral Oral SpO2: 100% 100% 100% 100% I/O last 3 completed shifts: In: 540 [P.O.:540] Out: 400 [Urine:400] WBC, BUN, Creatinine (Last 7 days) Today 0600 Yesterday 0737 Yesterday 0401 WBC 3.3 5.6 7.6 BUN 64 62 61 Creatinine 3.38 3.40 3.49 Patient weight not recorded Estimated CrCl: ~35-45 mL/min --Cultures-- Microbiology Results Date and Time Order Name Sensitivity Status Organisms Specimen ID Source 10/06/2024 1:04 AM #2 Blood culture-Peripheral site 2 Preliminary [id number] Peripheral 10/06/2024 1:04 AM #1 Blood culture-Peripheral site 1 Preliminary [id number] Peripheral --Vancomycin Concentrations-- Lab Results (Last 7 days) Today 0600 Vanc Rdm 21.1 --Assessment and Plan-- Patient is a 39 y.o. male being treated with vancomycin empirically for Abdominal/Pelvic infection.(OSH para cultures growing GPCs) Vancomycin random this morning 21.1 mg/L. Will hold off on giving a dose today. Will check vancomycin serum concentration with am labs, prior to next dose. Goal vancomycin trough of 15-20 mg/L Pharmacy will continue to monitor therapy for efficacy and toxicity. Thank you for the consult. Jodi Ortiz PharmD Clinical Locksmith, Internal Medicine Preferred contact: [facility] [id number] Pager: [phone] October 07, 2024 5:01 PM * Yamile Paige, PT - 10/07/2024 11:45 AM EDT Physical Therapy Initial Assessment and Discharge Name: Julien Gilbert : 1985 Attending Physician: Fouzia Rene MD Admission Diagnosis: AMS Date: 10/07/2024 Room: [facility] Reviewed Pertinent hospital course: Yes Hospital Course PT/OT: 39yo male admit for confusion and lethargy. HCT (-). Diagnostic paracentesiscompleted, results pending from OSH Relevant PMH : W/u for liver transplant due to alcoholic cirrhosis, HTN, HLD, hypothyroidism, CKD, known renal mass Precautions: None Activity Level: Activity as tolerated Assist: Co-evaluation performed Assessment Assessment: No acute impairments Co-treatment performed: secondary to anticipated level of skilled assistance required to safely treat and mobilize patient Prognosis: Good Pt tolerated today's session well evidenced by independence with all mobility. Denies further need for acute care PT services, will discharge from therapy at this time. If pt experiences a functionaldecline, please re-consult our services Recommendation Recommendation: No skilled PT Equipment Recommended: None AM-PAC 6 Clicks Basic Mobility Inpatient Short Form: PT 6 Clicks Score: 24 Mobility Recommendations for Staff Patient ability: Patient ambulates in hallway Assist needed: independently Home Living/Prior Function Patient able to provide accurate information at this time: Yes, but patient is/may be a poor historian and accuracy should be confirmed Lives With: Family Assistance available: 24 hour assistance Type of Home: House Home Entry: No steps to enter Home Layout: One level Bathroom Shower/Tub: Walk-in shower;Tub/shower unit Bathroom Toilet: Standard Bathroom Equipment: Shower chair Home Equipment: None Prior Function Functional Mobility: Independent ( no assistive device) Receives Help From: None needed prior to admission ADL Assistance: Independent IADL Assistance: Independent Pain Pain Score: 8 Pain Location: Neck Pain Descriptors: Aching Pain Intervention(s): Ambulation/increased activity;Repositioned Therapist reported pain to: RN Vision Hearing/Vision/Perception Hearing: No hearing deficits noted Baseline Vision: Wears glasses for distance only Overall Vision/ Perception: Within Functional Limits Cognition Overall Cognitive Status: Impaired Cognitive Assessment: Arousal/ Alertness;Orientation Level;Behavior;Following Commands;Safety Judgment;Insight Arousal/Alertness: Alert Orientation Level: Oriented X4 Behavior: Cooperative Following Commands: Follows multistep commands;Requires repetition of instruction Safety Judgment: Decreased awareness of need for assistance Insight: Demonstrated decreased insight into limitations and abilities to complete ADLs safely;Decreased awareness of need for assistance Comments: pt w/ difficulty word finding Neuromuscular Overall Sensation: Patient denies any numbness/ tingling in BUE's/ BLEs Upper Extremity UE Assessment: Defer to OT evaluation for formal assessment Lower Extremity Lower Extremity LE Assessment: Strength WFL (at least 3+/5) as observed during functional activity Functional Mobility Bed Mobility Rolling: Independent Supine to Sit: Independent Sit to Supine: Independent Transfers Sit to Stand: Independent Stand to Sit: Independent Gait Distance (in feet): 185' Level of assistance: Independent Assistive Device: None Gait Characteristics: Steady;swing-through pattern;No LOB Unable to progress further due to: pt does not have to complete stairs Balance Sitting - Static: Independent Sitting-Dynamic: Independent Total time in sittin-2min Standing-Static: Independent Standing-Dynamic: Independent Total time in standinmin Gait belt used: Yes Outcome Measures Position after Therapy/Safety Handoff Position after treatment and safety handoff Position after therapy session: Chair Details: RN notified;visitor present;RN present;Call light/ needs within reach Alarms: Chair Alarms Status: Activated and Interfaced with call system Goals No PT goals established secondary to patient with no acute skilled PT needs. Patient stated goal(s)is/are to go home--addressed at time of eval. Discharge patient from inpatient PT services at this time. Patients and/or caregivers as well as practitioners mutually agreed upon the above goal(s)/plan. Patient/Family Education Educated patient and patient's family on the role of physical therapy, importance of increased activity, and discharge recommendations and fall prevention strategies, including need for supervision/ assistance with OOB activity and use of call light; patient and patient's family verbalized understanding. Handout(s) issued: none. Plan Plan PT Frequency: Discharge from PT The plan of care and recommendations assesses the patient's and/or caregiver's readiness, willingness, and ability to provide or support functional mobility and ADL tasks as needed upon discharge. Time Start Time: 0943 Stop Time: 1000 Time Calculation (min): 17 min Charges $PT Evaluation Low Complex 20 Min: 1 Procedure Problem List Problem List[1] Past Medical History Past Medical History: Diagnosis Date Alcoholic cirrhosis of liver (CMS-HCC) Alcoholic hepatitis Esophageal varices (CMS-HCC) Hepatorenal syndrome (CMS-HCC) Hypertension Other hyperlipidemia 07/26/2024 Renal cell carcinoma (CMS-HCC) Thrombocytopenia (CMS-HCC) Thyroid disease Past Surgical History No past surgical history on file. [1] Patient Active Problem List Diagnosis Decompensated cirrhosis (CMS-HCC) NADIYA (acute kidney injury) (CMS-HCC) Alcohol use disorder Metabolic encephalopathy Hypertension Other hyperlipidemia Thrombocytopenia (CMS-HCC) Renal mass, left Abdominal pain Hypokalemia CKD (chronic kidney disease) stage 4, GFR 15-29 ml/min (CMS-HCC) Metabolic acidosis with normal anion gap and bicarbonate losses GERD (gastroesophageal reflux disease) Hypothyroidism Itching Anemia BRBPR (bright red blood per rectum) C Diff Diarrhea C. difficile diarrhea Aphasia * Gerri Peterson MD - 10/07/2024 11:33 AM EDT [facility] PROGRESS NOTE Name: Julien Gilbert CSN: [id number] Consulted by: Fouzia Rene MD Reason for Consult: Decompensated Cirrhosis History of Present Illness: Julien Gilbert is a 39 y.o. with history of decompensated EtOH cirrhosis (complicated by EV, HRS, ascites, HE), HTN, and CKD who was transferred from OSH for altered mental status Interval History -no acute events overnight -this morning, patient was alert but not answering questions. was at bedside and reported thathis mentation waxes and wanes. She reports episodes where patient does not answer questions and only responds to yes or no questions. Review of Systems -all systems reviewed; negative unless stated above Past Medical History: Diagnosis Date Alcoholic cirrhosis [...] Min cefTRIAXone (ROCEPHIN) IVPB 2 g Intravenous Q24H folic acid 1 mg Oral Daily 0900 heparin 5,000 Units Subcutaneous 3 times per day lactulose 20 g Oral TID levothyroxine 75 mcg Oral QAM AC magnesium sulfate in sterile water 50 mL 2 g Intravenous Once methocarbamoL 500 mg Oral TID pantoprazole 40 mg Oral QAM AC rifAXIMin 550 mg Oral BID sodium bicarbonate 1,300 mg Oral TID thiamine HCl 100 mg Oral Daily 0900 ursodioL 300 mg Oral BID zinc sulfate 220 mg Oral Daily 0900 Continuous Infusions: PRN Meds: traMADol, vancomycin intermittent/pulse dosing PLACEHOLDER ORDER Prior to Admission Meds: Home Medications Medication Sig Taking? Last Dose ciprofloxacin HCl (CIPRO) 500 MG tablet Take 1 tablet (500 mg total) by mouth daily. Yes Past Week folic acid (FOLVITE) 1 MG tablet Take 1 tablet (1 mg total) by mouth daily. Yes Past Week lactulose (CHRONULAC) 10 gram/15 mL solution Take 30 mLs (20 g total) by mouth 3 times a day as needed (goal 2-3 bowel movements a day). Yes 10/05/2024 Morning levothyroxine (SYNTHROID) 75 MCG tablet Take 1 tablet (75 mcg total) by mouth every morning before breakfast. Yes 10/05/2024 pantoprazole (PROTONIX) 40 MG tablet Take 1 tablet (40 mg total) by mouth every morning before breakfast. Yes Past Week potassium chloride (KLOR-CON M20) 20 MEQ tablet Take 2 tablets (40 mEq total) by mouth daily. Yes Past Week rifAXIMin (XIFAXAN) 550 mg Tab tablet Take 1 tablet (550 mg total) by mouth 2 times a day. Yes 10/05/2024 Morning sodium bicarbonate 650 MG tablet Take 2 tablets (1,300 mg total) by mouth 3 times a day. Yes 10/05/2024 Morning thiamine HCl (VITAMIN B-1) 100 MG tablet Take 1 tablet (100 mg total) by mouth daily. Yes Past Week traMADoL (ULTRAM) 50 mg tablet Take 1 tablet (50 mg total) by mouth every 12 hours as needed for Pain (Pain). Yes Past Week ursodioL (ACTIGALL) 300 mg capsule Take 1 capsule (300 mg total) by mouth 2 times a day. Yes 10/05/2024 Morning zinc sulfate (ZINCATE) 50 mg zinc (220 mg) capsule Take 1 capsule (220 mg total) by mouth daily. Yes Past Week Vitals: Temp: [97.5 ??F (36.4 ??C)-98.5 ??F (36.9 ??C)] 97.5 ??F (36.4 ??C) Heart Rate: [90-114] 94 Resp: [16-18] 18 BP: (98-124)/(46-60) 124/60 Intake/Output Summary (Last 24 hours) at 10/07/2024 1133 Last data filed at 10/07/2024 1045 Gross per 24 hour Intake 720 ml Output -- Net 720 ml Physical Exam Gen: No acute distress. Resting in bed. HEENT:. + scleral icterus. CV: Regular rate and rhythm. Lungs:Comfortable on RA Abdomen: Soft, nontender, distended Skin: jaundiced Neuro: Alert. No focal deficits. + No asterixis. Psych: Appropriate mood and affect. Laboratory: Lab Results Component Value Date WBC 3.3 (L) 10/07/2024 HGB 7.4 (L) 10/07/2024 HCT 21.5 (L) 10/07/2024 MCV 104.1 (H) 10/07/2024 PLT 35 (L) 10/07/2024 Lab Results Component Value Date NA 132 (L) 10/07/2024 K 3.9 10/07/2024 CL 103 10/07/2024 CO2 19 (L) 10/07/2024 BUN 64 (H) 10/07/2024 CREATININE 3.38 (H) 10/07/2024 GLUCOSE 111 (H) 10/07/2024 CALCIUM 9.1 10/07/2024 PHOS 4.2 10/07/2024 Lab Results Component Value Date AST 39 10/07/2024 ALT 18 10/07/2024 BILITOT 9.7 (H) 10/07/2024 BILIDIRECT 5.21 (H) 10/07/2024 PROT 4.8 (L) 10/07/2024 ALBUMIN 3.6 10/07/2024 ALBUMIN 3.6 10/07/2024 ALKPHOS 98 10/07/2024 Lab Results Component Value Date INR 2.4 (H) 10/07/2024 Lab Results Component Value Date HEPAIGM Nonreactive 10/06/2024 HEPBIGM Nonreactive 09/03/2024 Microbiology: Lab Results Component Value Date LABGRAM Cytospin Results: 09/09/2024 LABGRAM Polymorphonuclear Leukocytes Seen; 09/09/2024 LABGRAM No Organisms Seen; 09/09/2024 MELD 3.0: 38 at 10/07/2024 6:00 AM Calculated from: Serum Creatinine: 3.38 mg/dL (Using max of 3 mg/dL) at 10/07/2024 6:00 AM Serum Sodium: 132 mmol/L at 10/07/2024 6:00 AM Total Bilirubin: 9.7 mg/dL at 10/07/2024 6:00 AM Serum Albumin: 3.6 g/dL (Using max of 3.5 g/dL) at 10/07/2024 6:00 AM INR(ratio): 2.4 at 10/07/2024 6:00 AM Age at listing (hypothetical): 39 years Sex: Male at 10/07/2024 6:00 AM Assessment/Plan: This is a 39 year old male history of ETOH cirrhosis d/b HE, ascites with SBP who is admitted for AMS. CT head with no acute findings. She has evidence of asterixis on exam this morning consistent with HE. Unclear precipitant of his HE but suspect likely infectious etiology. Blood cultures and UA unremarkable. He reportedly had diagnostic paracentesis at OSH which reportedly showed normal appearance, 61 nucleated cells, <2000 RBCs 10% Polynuclear, 90% [place] nuc. Fluid cultures reportedly grewgram + rods. This is consistent with bacteriascites. Plan/Recommendation # encephalopathy # HE - Ascitic fluid studies at OSH growing gram+ rods with negative PMN consistent with bacteriascites. -blood culture and UA unremarkable -Unclear precipitant of HE but suspect likely infectious -continue empiric antibiotics; follow up speciation for ascitic fluid culture at OSH -continue rifaximin, Zinc, and lactulose; titrate to 3 bowel movements daily -Follow up C diff # NADIYA on CKD - Most likely 2/2 to HRS-NADIYA - No significant improvement despite despite 200 mg of albumin - Given that patient has already received 200 mg of albumin, will hold off on re-dosing today. However will defer to nephrology -if persistently low blood pressure, will add on midodrine - Given multi-organ failure, patient not a candidate for terlipressin at this time -#Ascites #Bacteriascites -Antibiotics management as above . Continue prn paracentesis. -will repeat paracentesis tomorrow to monitor for response to treatment #Varices- -history of bleeding Evs, s/p banding. EGD 07/29/2022 which showed grade 1 and 2 varices, no active bleeding. Not BB tolerant. Hb at baseline this admission w/o evidence of GIB. -will schedule for repeat EGD on 10/09 for surveillance. #Transplant: -patient has completed 8/12 weeks CD treatment required to be considered for transplant. -discussed at transplant selection meeting today. Will proceed with pre- transplant evaluation. Pre-transplant labs and imaging ordered -Will consult transplant nephrology for consideration for SLK given persistently low eGFR Patient seen and discussed with the attending physician, Dr Soto. Recommendations are final following attestation GERRI PETERSON MD PGY-5 10/07/2024, 11:33 AM [1] Allergies Allergen Reactions Adhesive Itching and Rash Tegaderm adhesive on Ivs, pt states its tolerable Duloxetine Other (See Comments) Became Manic Cosigned by Lino Soto MD at 10/07/2024 8:08 PM EDT Associated attestation - Lino Soto MD - 10/07/2024 8:08 PM EDT Attending Physician's Note: I have personally seen and examined the patient, reviewed the chart, imaging and labs and have discussed the case with Dr. Peterson, agree with his note and confirm it. 39 y.o. male with alcoholic cirrhosis, ascites, hepatic encephalopathy with recurrent admissions. Sober since Jun 2024. Recent episode of SBP. Currently admitted with altered mental status and acute on chronic kidney injury. Diagnostic paracentesis performed at OSH, result snot available yet. Being empirically treated for SBP. PE Vitals: 10/07/24 0734 10/07/24 1100 10/07/24 1109 10/07/24 1237 BP: 98/46 124/60 119/68 BP Location: Right upper arm Right upper arm Patient Position: Lying Lying Pulse: 93 93 94 86 Resp: 18 18 16 Temp: 98.2 ??F (36.8 ??C) 97.5 ??F (36.4 ??C) TempSrc: Oral Oral SpO2: 100% 100% 100% 100% Appears very frail Sclera icteric Abdomen is soft, non-tender Confused, +ve asterixis 1+ LE edema A&P 39 y.o. year old male with complex medical issues as detailed in HPI. Acute on chronic liver failure, most likely secondary to infection. Will continue Abx for now. Has at least 3 system failures so Terlipressin not ideal for NADIYA. Will recommend Midodrine 10 mg TID. Will also start transplant evaluation after discussion in liver selection meeting and clearance by social sciences professor. Please order CT cardiac coronary evaluation, transplant nephrology consult to see if he qualifies for simultaneous liver/kidney transplant. Lino Soto MD GI and Hepatology Staff * Ignacio Queen MD - 10/07/2024 11:22 AM EDT Images from the original note were not included. Department of Internal Medicine Nephrology & Hypertension Consult History & Physical Note Patient: Julien Gilbert Date of Admit: 10/05/2024 Referring physician: Fouzia Rene MD Interval hx Seen and examined Still with intermittent confusion per at bedside, not sleeping well at night 24 hour urine output not documented Cr 3.38 < 3.4 Assessment: Renal Function: Cr: 3.38 Bun: 64 on 10/07/2024 NADIYA on CKD, last discharge creatinine 2.4 Likely HRS UA bland Urine lytes <10/< 15/ 50 Recent admission in August with NADIYA in context of decompensated cirrhosis treated in the lines of HRS. Electrolytes: Na: 132 K: 3.9 Cl: 103 Ma.7 Ca: 9.1 Phos: 4.2 Hyponatremia Acid Base Status: Anion Gap: 10 Bicarb: 19 NAGMA Hypertension/CVS: BP: 124/60 Goal <130/80 Volume Status: Mineral Bone Disease: Ca: 9.1 PO4: 4.2 Alb: 3.6; 3.6 PTH: No results found for requested labs within last 3600 days. on No results found for requested labs within last 3600 days. Vit D: No results found for requested labs within last 3600 days. on No results found for requestedlabs within last 3600 days. No current issues Anemia of CKD: Hgb 7.4 Hct 21.5 Plt 35 Iron No results found for requested labs [...] for requested labs within last 3600 days. Anemia Plan: Nadiya on CKD, likely HRS, likely triggered by recent para and diarrhea, recent cr around 2.4, continue albumin challenge, rule 0ut SBP, will obtain OSH records 2. Obtain renal usg, outside imaging not yet available in chart 3. Continue Bicarb tablets 1300 3 times daily for NAGMA related to diarrhea Strictly monitor urine output No Indication for APPLICATION SECURITY ARCHITECT Liver transplant workup per GI/ Primary team Thank you for allowing us to participate in this patient's care. Discussed with Consult Staff. Ignacio Queen MD Renal Fellow Pager # [phone] Chief Complaint No chief complaint on file. Reason for Consult Nadiya on CKD Decompensated cirrhosis History of Present Illness Julien Gilbert is a 39 y.o. y/o male past medical history of decompensated cirrhosis due to alcohol abuse with admitted varices, HRS ascites, hepatic encephalopathy being worked up for liver transplanthypothyroidism CKD baseline 2.5-2.9 , left-sided RCC status post ablation, small right kidney? Who presented with altered mental status and weakness since Sunday. Nephrology consulted for NADIYA on CKD, concern for hepatorenal syndrome.` Patient came from [facility], paracentesis was performed yesterday on 10/05? Fluid pending for SBP analysis Histories he has a past medical history [...] reports current drug use. Drug: Marijuana. Allergies[1] Medications: Home Medications: Home Medications Medication Sig Taking? Last Dose ciprofloxacin HCl (CIPRO) 500 MG tablet Take 1 tablet (500 mg total) by mouth daily. Yes Past Week folic acid (FOLVITE) 1 MG tablet Take 1 tablet (1 mg total) by mouth daily. Yes Past Week lactulose (CHRONULAC) 10 gram/15 mL solution Take 30 mLs (20 g total) by mouth 3 times a day as needed (goal 2-3 bowel movements a day). Yes 10/05/2024 Morning levothyroxine (SYNTHROID) 75 MCG tablet Take 1 tablet (75 mcg total) by mouth every morning before breakfast. Yes 10/05/2024 pantoprazole (PROTONIX) 40 MG tablet Take 1 tablet (40 mg total) by mouth every morning before breakfast. Yes Past Week potassium chloride (KLOR-CON M20) 20 MEQ tablet Take 2 tablets (40 mEq total) by mouth daily. Yes Past Week rifAXIMin (XIFAXAN) 550 mg Tab tablet Take 1 tablet (550 mg total) by mouth 2 times a day. Yes 10/05/2024 Morning sodium bicarbonate 650 MG tablet Take 2 tablets (1,300 mg total) by mouth 3 times a day. Yes 10/05/2024 Morning thiamine HCl (VITAMIN B-1) 100 MG tablet Take 1 tablet (100 mg total) by mouth daily. Yes Past Week traMADoL (ULTRAM) 50 mg tablet Take 1 tablet (50 mg total) by mouth every 12 hours as needed for Pain (Pain). Yes Past Week ursodioL (ACTIGALL) 300 mg capsule Take 1 capsule (300 mg total) by mouth 2 times a day. Yes 10/05/2024 Morning zinc sulfate (ZINCATE) 50 mg zinc (220 mg) capsule Take 1 capsule (220 mg total) by mouth daily. Yes Past Week Inpatient Meds: albumin human 25% (12.5 g/ 50 mL) 12.5 g Intravenous Q30 Min cefTRIAXone (ROCEPHIN) IVPB 2 g Intravenous Q24H folic acid 1 mg Oral Daily 0900 heparin 5,000 Units Subcutaneous 3 times per day lactulose 20 g Oral TID levothyroxine 75 mcg Oral QAM AC magnesium sulfate in sterile water 50 mL 2 g Intravenous Once methocarbamoL 500 mg Oral TID pantoprazole 40 mg Oral QAM AC rifAXIMin 550 mg Oral BID sodium bicarbonate 1,300 mg Oral TID thiamine HCl 100 mg Oral Daily 0900 ursodioL 300 mg Oral BID zinc sulfate 220 mg Oral Daily 0900 Continuous Infusions: PRN medications: vancomycin intermittent/pulse dosing PLACEHOLDER ORDER Physical Exam Patient Vitals for the past 4 hrs: BP Temp Temp src Pulse Resp SpO2 10/07/24 1109 124/60 97.5 ??F (36.4 ??C) Oral 94 18 100 % 10/07/24 0734 98/46 98.2 ??F (36.8 ??C) Oral 93 18 100 % Wt Readings from Last 3 Encounters: 09/05/24 (!) 262 lb 9.6 oz (119.1 kg) 09/02/24 (!) 258 lb (117 kg) 08/17/24 (!) 242 lb 11.2 oz (110.1 kg) Intake/Output Summary (Last 24 hours) at 10/07/2024 1122 Last data filed at 10/07/2024 1045 Gross per 24 hour Intake 720 ml Output 400 ml Net 320 ml General appearance: NAD Lungs: No RD, CTA b/l Heart: RRR Abdomen: distended, non tender Extremities: no leg edema Skin: No rashes/lesions noted, no skin tears Psych: lethargic, but answering appropriately Laboratory Data and Imaging Recent Labs 10/06/24 0401 10/06/24 0737 10/07/24 0600 WBC 7.6 5.6 3.3* HGB 10.1* 9.0* 7.4* HCT 28.4* 25.3* 21.5* MCV 102.4* 101.2* 104.1* PLT 53* 52* 35* Recent Labs 10/06/24 0401 10/06/24 0737 10/07/24 0600 NA 129* 129* 132* K 4.7 4.4 3.9 CL 100 100 103 CO2 16* 18* 19* BUN 61* 62* 64* CREATININE 3.49* 3.40* 3.38* GLUCOSE 104* 98 111* CALCIUM 9.2 9.5 9.1 MG 1.8 -- 1.7 PHOS 5.3* -- 4.2 ANIONGAP 13 11 10 ALBUMIN 3.4* 3.4* 3.6 3.6 3.6 Recent Labs 10/06/24 0401 10/06/24 0737 10/07/24 0600 CALCIUM 9.2 9.5 9.1 PHOS 5.3* -- 4.2 No results found for: IRON , TIBC , FERRITIN No results found for: [id number] , FOLATE Lab Results Component Value Date COLORU Yellow 10/06/2024 CLARITYU Clear 10/06/2024 PROTEINUA Negative 10/06/2024 PHUR 6.0 10/06/2024 LABSPEC 1.014 10/06/2024 GLUCOSEU Negative 10/06/2024 BLOODU Negative 10/06/2024 LEUKOCYTESUR Negative 10/06/2024 NITRITE Negative 10/06/2024 BILIRUBINUR Negative 10/06/2024 UROBILINOGEN <2.0 10/06/2024 RBCUA 1 09/03/2024 WBCUA 1 09/03/2024 BACTERIA Occasional (A) 09/03/2024 Recent Labs 10/06/24 1325 NAUR <10 KUR 50.0 CLUR <15 No results found for: MICROALBUR , [id number] In addition to the above an extensive amount of complex data in the patients lab and chart were reviewed. Diagnostic Imaging Reviewed in EMR. This note was copied forward from previously composed documentation. I have reviewed and updated the history, review of systems, physical exam, data, assessment and plan of the note so that it reflects the evaluation and management of the patient on 10/07/2024. [1] Allergies Allergen Reactions Adhesive Itching and Rash Tegaderm adhesive on Ivs, pt states its tolerable Duloxetine Other (See Comments) Became Manic Cosigned by Colten Huertas MD at 10/07/2024 4:14 PM EDT Associated attestation - Colten Huertas MD - 10/07/2024 4:14 PM EDT ATTESTATION I saw Mr/Ms Julien Gilbert with renal fellow / consult team I went through all the events leading to hospitalization, primary teams notes, pertinent laboratorywork up, history and physical examination. I agree with the documentation and plan mentioned in thenote by the fellow. I was present at the time of exam and history taking. DOS 10/07/2024 Julien Gilbert is a 39 y.o. male with has a past medical history of Alcoholic cirrhosis of liver (CMS-HCC), Alcoholic hepatitis, Esophageal varices (CMS-HCC), Hepatorenal syndrome (CMS-HCC), Hypertension, Other hyperlipidemia (07/26/2024), Renal cell carcinoma (CMS-HCC), Thrombocytopenia (CMS-HCC), and Thyroid disease. who presents for NADIYA in the context of his liver disease My additional comments are as follow: Pt seen More alert today Pts beside Non oliguric Stable Cr - no further worsening or improvement FOCUSED PHYSICAL EXAM Vitals: 10/07/24 1237 BP: 119/68 Pulse: 86 Resp: 16 Temp: SpO2: 100% Focused clinical examination was conducted today Patient is clinically euvolemic 1+ pedal edema Chest sounds clear Heart sounds are normal Gross neurological system exam unremarkable Abdo distended Asterixis + Vascular access exam: PERTINENT LABS Anemia Lab Results Component Value Date WBC 3.3 (L) 10/07/2024 HGB 7.4 (L) 10/07/2024 HCT 21.5 (L) 10/07/2024 MCV 104.1 (H) 10/07/2024 PLT 35 (L) 10/07/2024 No results found for: IRON , TIBC , FERRITIN Acidosis/Electrolytes Lab Results Component Value Date CREATININE 3.38 (H) 10/07/2024 BUN 64 (H) 10/07/2024 NA 132 (L) 10/07/2024 K 3.9 10/07/2024 CL 103 10/07/2024 CO2 19 (L) 10/07/2024 CKD MBD Lab Results Component Value Date CALCIUM 9.1 10/07/2024 PHOS 4.2 10/07/2024 No results found for: [id number] PLAN Continue IV albumin Monitor renal panel No indication for dialysis MELD 3.0: 38 at 10/07/2024 6:00 AM Calculated from: Serum Creatinine: 3.38 mg/dL (Using max of 3 mg/dL) at 10/07/2024 6:00 AM Serum Sodium: 132 mmol/L at 10/07/2024 6:00 AM Total Bilirubin: 9.7 mg/dL at 10/07/2024 6:00 AM Serum Albumin: 3.6 g/dL (Using max of 3.5 g/dL) at 10/07/2024 6:00 AM INR(ratio): 2.4 at 10/07/2024 6:00 AM Age at listing (hypothetical): 39 years Sex: Male at 10/07/2024 6:00 AM Colten Huertas MD, KISHOR LIN FNKF folded cloth taper Div. of Nephrology [facility] E-mail: [email or web address] * Carmen Bernal OT - 10/07/2024 11:09 AM EDT Occupational Therapy Initial Assessment and Discharge Name: Julien Gilbert : 1985 Attending Physician: Fouzia Rene MD Admission Diagnosis: AMS Date: 10/07/2024 Room: 8142/U8142 Reviewed Pertinent hospital course: Yes Hospital Course PT/OT: 39yo male admit for confusion and lethargy. HCT (-). Diagnostic paracentesiscompleted, results pending from OSH Relevant PMH : W/u for liver transplant due to alcoholic cirrhosis, HTN, HLD, hypothyroidism, CKD, known renal mass Precautions: None Activity Level: Activity as tolerated Assist: Co-evaluation performed Recommendation Recommendation: No skilled OT Equipment Recommendations: None Assessment Assessment: Decreased IADLs, Decreased cognition Pt tolerated OT evaluation well this morning and was agreeable to work with therapy. Pt completed all mobility, self-care transfers, and ADLs independently and w/ no AD. Pt's biggest concern is his speech and difficulty with word finding. Pt able to answer yes/no questions or when given choices. Pt's present and also reports that pt's speech waxes and wanes and she has been helping with IADLtasks. Pt denies any acute concerns regarding his ability to complete his self-care tasks. Pt demonstrates no further acute OT needs at this time. Pt will be discharged from acute OT services. Anticipate no further OT needs at discharge. If changes occur, please re-consult OT. Thank you. Outcome Measures AM-PAC 6 Clicks Daily Activity Inpatient Short Form: OT 6 Clicks Score: 24 Home Living/Prior Function Patient able to provide accurate information at this time: Yes, but patient is/may be a poor historian and accuracy should be confirmed Lives With: Family Assistance available: 24 hour assistance Type of Home: House Home Entry: No steps to enter Home Layout: One level Bathroom Shower/Tub: Walk-in shower, Tub/shower unit Bathroom Toilet: Standard Bathroom Equipment: Shower chair Home Equipment: None Prior Function Functional Mobility: Independent ( no assistive device) Receives Help From: None needed prior to admission ADL Assistance: Independent IADL Assistance: Independent Currently recieving therapy services: No Pain Pain Score: 8 Pain Location: Neck Pain Descriptors: Aching Pain Intervention(s): Ambulation/increased activity;Repositioned Therapist reported pain to: RN Cognition Overall Cognitive Status: Impaired Cognitive Assessment: Arousal/ Alertness;Orientation Level;Behavior;Following Commands;Safety Judgment;Insight Arousal/Alertness: Alert Orientation Level: Oriented X4 Behavior: Cooperative Following Commands: Follows multistep commands;Requires repetition of instruction Safety Judgment: Decreased awareness of need for assistance Insight: Demonstrated decreased insight into limitations and abilities to complete ADLs safely;Decreased awareness of need for assistance Comments: pt w/ difficulty word finding Vision Hearing: No hearing deficits noted Baseline Vision: Wears glasses for distance only Overall Vision/ Perception: Within Functional Limits Right [...] Functional Mobility Bed Mobility Supine to Sit: Independent Transfers Sit to Stand: Independent Stand to Sit: Independent Functional Mobility: Supervision (to complete short distance in the room and hallway w/ no AD) Balance Sitting - Static: Independent Sitting-Dynamic: Independent Standing-Static: Supervision Standing-Dynamic: Supervision Gait belt used: Yes ADL Lower Body Dressing: Independent Lower Body Dressing Deficit Additional Comments: pt with pants and socks donned and reported no difficulty w/ ADLs Position after Treatment/Safety Handoff Position after therapy session: Recliner Details: RN notified;Call light/ needs within reach Alarms: Chair Alarms Status: Activated and Interfaced with call system Plan Plan OT Frequency: Discharge from OT The plan of care and recommendations assesses the patient's and/or caregiver's readiness, willingness, and ability to provide or support functional mobility and ADL tasks as needed upon discharge. Goals Patient stated goal: to go home Collaborated with: Patient Patient/Family Education Educated patient on the role of occupational therapy, OT goals, OT plan of care, discharge recommendation, ADL training, functional mobility training, and the importance of safety and fall preventionstrategies including use of call light. patient verbalized understanding. OT Time Start Time: 941 Stop Time: 958 Time Calculation (min): 17 min OT Charges $OT Evaluation Low Complex 30 Min: 1 Procedure Problem List Problem List[1] Past Medical History Past Medical History: Diagnosis Date Alcoholic cirrhosis of liver (CMS-HCC) Alcoholic hepatitis Esophageal varices (CMS-HCC) Hepatorenal syndrome (CMS-HCC) Hypertension Other hyperlipidemia 07/26/2024 Renal cell carcinoma (CMS-HCC) Thrombocytopenia (CMS-HCC) Thyroid disease Past Surgical History No past surgical history on file. [1] Patient Active Problem List Diagnosis Decompensated cirrhosis (CMS-HCC) NADIYA (acute kidney injury) (CMS-HCC) Alcohol use disorder Metabolic encephalopathy Hypertension Other hyperlipidemia Thrombocytopenia (CMS-HCC) Renal mass, left Abdominal pain Hypokalemia CKD (chronic kidney disease) stage 4, GFR 15-29 ml/min (CMS-HCC) Metabolic acidosis with normal anion gap and bicarbonate losses GERD (gastroesophageal reflux disease) Hypothyroidism Itching Anemia BRBPR (bright red blood per rectum) C Diff Diarrhea C. difficile diarrhea Aphasia * Eileen Schroeder MD, PhD - 10/07/2024 8:21 AM EDT Department of Internal Medicine Daily Progress Note Chief Complaint / Reason for Follow-Up Julien Gilbert is a 39 y.o. male on hospital day 2. The principal reason for today's follow up visit is Metabolic encephalopathy. DREW Pt fully conversational today. A&O x 3. Pt reported that yesterday that he could understand usbut just couldn't formulate his words He states that these episodes Come and go but reported that they are often worse just when he wakes up or if he very tired. Pt reports some neck pain sp cervical fusion that he typically manages in the outpatient setting with tramadol, but states that it can be very sedating for him. Pt reports improvement with Robaxin, but would like multimodal approach. Review of Systems (Focused) Negative except as mentioned above Medications Scheduled Meds: cefTRIAXone (ROCEPHIN) IVPB 2 g Intravenous Q24H folic acid 1 mg Oral Daily 0900 heparin 5,000 Units Subcutaneous 3 times per day lactulose 20 g Oral TID levothyroxine 75 mcg Oral QAM AC magnesium sulfate in sterile water 50 mL 2 g Intravenous Once methocarbamoL 500 mg Oral TID pantoprazole 40 mg Oral QAM AC rifAXIMin 550 mg Oral BID sodium bicarbonate 1,300 mg Oral TID thiamine HCl 100 mg Oral Daily 0900 ursodioL 300 mg Oral BID zinc sulfate 220 mg Oral Daily 0900 Continuous Infusions: PRN Meds: vancomycin intermittent/pulse dosing PLACEHOLDER ORDER Vital Signs Temp: [97.4 ??F (36.3 ??C)-98.5 ??F (36.9 ??C)] 98.2 ??F (36.8 ??C) Heart Rate: [90-114] 93 Resp: [16-19] 18 BP: (98-140)/(46-74) 98/46 Intake/Output Summary (Last 24 hours) at 10/07/2024 0821 Last data filed at 10/07/2024 0348 Gross per 24 hour Intake 480 ml Output 400 ml Net 80 ml Physical Exam Physical Exam Constitutional: Appearance: He is ill-appearing. He is not diaphoretic. HENT: Head: Normocephalic and atraumatic. Mouth/Throat: Mouth: Mucous membranes are moist. Pharynx: Oropharynx is clear. Eyes: General: Scleral icterus present. Extraocular Movements: Extraocular movements intact. Cardiovascular: Rate and Rhythm: Normal rate and regular rhythm. Pulses: Normal pulses. Pulmonary: Effort: Pulmonary effort is normal. Breath sounds: Normal breath sounds. Abdominal: General: There is distension. Palpations: Abdomen is soft. Tenderness: There is no abdominal tenderness. Musculoskeletal: Cervical back: Tenderness present. Right lower leg: Edema present. Left lower leg: Edema present. Comments: 2+ edema Skin: General: Skin is dry. Coloration: Skin is jaundiced. Neurological: General: No focal deficit present. Mental Status: He is alert and oriented to person, place, and time. Cranial Nerves: Cranial nerves 2-12 are intact. No cranial nerve deficit. Motor: No weakness. Psychiatric: Mood and Affect: Mood normal. Behavior: Behavior normal. Thought Content: Thought content normal. Cognition and Memory: Cognition normal. Laboratory Data CBC 10/07/2024 \ 7.4 / 3.3 \ / 35 / \ / 21.5 \ Differential 09/16/2024 N 84.2 L 8.0 M 5.1 E 1.5 B 0.7 Renal 10/07/2024 132 103 64 / ___ __ / 111 \ 3.9 19 3.38 \ Ca 9.1 (10/07/2024) Mg 1.7 (10/07/2024) Phos 4.2 (10/07/2024) Lipids No results found for: CHOLTOT , TRIG , HDL , LDL LFTs 10/07/2024 \ 9.7 / \ 5.21 / 39 \ / 18 / \ / 98 \ PT/INR/PTT - 10/07/2024 PT 26.9 INR 2.4 PTT No results found for requested labs within last 3600 days. Lab 10/06/24 1151 COLOR, URINE Yellow CLARITY Clear SPECIFIC GRAVITY, URINE 1.014 PH UA 6.0 PROTEIN UA Negative GLUCOSE UA Negative KETONES UA Negative BILIRUBIN UA Negative BLOOD UA Negative NITRITE UA Negative UROBILINOGEN UA <2.0 LEUKOCYTES UA Negative No results found for: NTPROBNP Lab Results Component Value Date TSH 0.84 10/06/2024 FREET4 0.74 09/03/[address] Head WO contrast Final Result IMPRESSION: 1. No acute intracranial abnormality. 2. No intracranial mass effect or hemorrhage. Report Verified by: Sher Abrams MD at 10/06/2024 4:50 PM EDT X-ray Portable Chest Final Result IMPRESSION: Negative portable chest. Report Verified by: Eduardo Franks MD at 10/06/2024 2:33 AM EDT US Duplex [id number] Comp (Results Pending) US Abdomen Complete (Results Pending) Assessment & Plan Julien Gilbert is a 39 y.o. male on HD# 2 with Metabolic encephalopathy. The medical issues being addressed in today's encounter are as follows: Principal Problem: Metabolic encephalopathy Active Problems: Decompensated cirrhosis (CMS-HCC) NADIYA (acute kidney injury) (CMS-HCC) Thrombocytopenia (CMS-HCC) Renal mass, left CKD (chronic kidney disease) stage 4, GFR 15-29 ml/min (CMS-HCC) Metabolic acidosis with normal anion gap and bicarbonate losses GERD (gastroesophageal reflux disease) Aphasia #Encephalopathy Pt noted to have waxing and waning encephalopathy at home over the last few days, initially suspected to be hyperammonemia by and patient, somewhat improved initially with lactulose; however encephalopathy subsequently worsened again. Notably, pt has a history of decompensated cirrhosis episodes including HRS and hepatic encephalopathy. Currently maintain high suspicion for toxic/metabolic encephalopathy in the setting of possible decompensated alcoholic cirrhosis. Continued to have diarrheal episodes despite completion of oral vancomycin for recent C. Diff. OSH labs with low bicarb to 17 and normal lactate, so will give consideration to ongoing C. Diff. - Ammonia level 10/06: 77 within normal range - UDS - Ethanol level, Tylenol level. Salicylate level -10/06: All Low, no concern for toxin-induced etiology at this time. - PETH labs - Continue home lactulose and rifaximin - UA, Blood Cx 10/07: No growth to date - Follow up OSH paracentesis studies, will continue CTX until report communicated -Report showed growth of Gram + rods, pt started on IV Vancomycin - CXR d/t RLL wheezing - COVID/Flu/RSV(-) #Decompensated Alcoholic Cirrhosis Pt abdomen non-acute. Does appear significantly jaundiced with scleral icterus. Bedside paracentesis performed at OSH. Concern for possible SBP but reassured by lack of fever and hemodynamically stable status. - MELD labs Improved on 10/07/ - Hepatitis Screening - RUQ Ultrasound with Doppler to evaluate for Portal Vein Thrombosis - Hold home Cipro prophylaxis for SBP - Continue home Zinc - Continue home ursodiol - Asked for paracentesis studies to be sent from OSH for review - Hepatology consult placed, appreciate recs - Scheduled for 3 days of Albumin infusion #NAGMA Pt found to have a pH of 7.21 upon admission to , with a HCO3 18 and pCO2 41. Pt is Rx Bicarb tablets at home and has a known history of CKD. pH was improved 7.27 later in the morning. NAGMA likely due to GI loss due to lactulose and diuresis. -Restarted oral Bicarb -Improved on 10/07. #SBP Previously was previously on Cipro for SBP prophylaxis. Pt started on 2g of IV CTX at admission.. -Outside results obtained on 10/07 showed growth of Gram+ rods from most recent therapeutic paracentesis. -10/07: Started on IV Vancomycin based on results from outside facility. Will engage with them daily #Aphasia Patient appears to be unable to name objects when asked, but can readily follow commands. Additionally, pt is unable to verbally answer orientation questions. Authors was able to see pt is frustratedin his inability to verbally communicate. It appears that this waxes and wanes and could be attributed to his encephalopathy, though patient has never presented with this symptom and no head imaging has been performed at [facility]. -CT Head w/o contrast -Imaging showed no concern for acute etiology of aphasia. -Will CTM, most likely due to metabolic/toxic encephalopathy #H/o GI Bleed Pt with history of GI bleed in setting of gastric varices, for which IR at OSH had to place 17 coils. 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 - Has previously been on beta blockade for variceal prevention, but did not tolerate beta dominic due to hypotension. #Non-Oliguric NADIYA on CKD Patient noted on OSH labs to have creatinine of 3.6. Baseline creatinine appears to range 2.5-2.9. Per , pt makes urine and has never required dialysis. - Bladder Ultrasound and PVR - UA, urine lytes - Albumin challenge tonight given his NADIYA in setting of hepatic disease - Continue home bicarb tablets - Nephro consult, appreciate recs - Hold home diuretics - Strict I/O's #h/o Left Sided RCC s/p cryoablation Cryoablation was done 2022. On CT A/P at OSH, pt noted to have persistent L sided exophytic renal mass. #Hepatic Lesion of Unk etiology OSH CT A/P with iso-attenuating round nodular outpouching in inf R lobe measuring 3.6 x 3.8cm. Differential to include cyst vs metastatic RCC vs primary hepatic tumor - Hepatology consult, appreciate recs - Consider MRI inpatient #History of AUD - Continue home thiamine repletion - PETH and ETOH level as above #GERD - continue home protonix #HTN - Continue home #HLD #Hypothyroidism - continue home synthroid Nutrition: Diet/Nutrition Orders Diet Regular(7) sodium 2 gm (low) Frequency: Effective Now Number of Occurrences: Until Specified Order Questions: Additional restrictions: sodium 2 gm (low) Suicide/Behavior Risk Modification? No Dietary nutrition supplements Frequency: TID Number of Occurrences: Until Specified Order Comments: Vanilla boost Order Questions: Select Supplement: Boost-1 kcal/ml supplement ([facility] only) Code Status: Full Code Signed: EILEEN SCHROEDER MD, PhD 10/07/2024, 8:21 AM Cosigned by Fouzia Rene MD at 10/07/2024 2:00 PM EDT Associated attestation - Fouzia Rene MD - 10/07/2024 2:00 PM EDT Internal Medicine Attending Supervision Note - Hospital Day# 2 The patient was seen today on rounds with the medical team. I have personally interviewed and performed the physical exam and medical decision making. I conducted an independent review of labs, procedures and imaging pertinent to today's encounter through the EMR. I reviewed the documentation by the medical steamtable attendant railroad and agree as documented. Any additions or clarifications are listed below. Daily plan was discussed with patient at bedside and questions addressed. Patient ID: Julien Gilbert is a 39 y.o. male currently admitted for Metabolic encephalopathy Supplemental History/ ROS: No acute events overnight He does report some continued neck pain in the area where where he had cervical fusion in the past Patient and spouse feel that he is less confused today. At times has difficulty formulating words, but seems to understand everything that has been going on around him Exam: Lying in bed, NAD + jaundice NCAT, EOMI, + scleral icterus RRR, no appreciable murmur Normal resp effort, lungs CTAB (anterior exam) Abd soft, slight distention, no fluid wave; mild TTP in epigastric region 1-2+ LE edema Labs and Imaging reviewed. Medical Decision Making/ Assessment & Plan: Julien Gilbert is a 39 y.o. male admitted for Metabolic encephalopathy Active Problems: Metabolic encephalopathy: Likely related to combination of hepatic, metabolic, and possibly infectious insults. Improving as he is A and O x 3 today. He and spouse also report fewer instances of difficulty with forming words. - Continue home lactulose and rifaximin Spontaneous Bacterial Peritonitis (CMS-HCC): Cultures from OSH are growing gram- positive organisms.He is on vancomycin and ceftriaxone for now. Will follow-up on speciation and sensitivities. For now, he is afebrile and his white counts have trended down and mental status is improving. Decompensated cirrhosis ([facility]CC): Appreciate hepatology consult. He has started his transplant evaluation as an outpatient. We will follow-up with hepatology to discuss any inpatient testing that may need to be needed. - MELD labs daily - Continue home regimen with ursodiol, rifaximin and lactulose NADIYA (acute kidney injury) ([facility]-HCC): Appreciate nephrology consult. Likely has hepatorenal syndrome. Baseline creatinine presumed to be around 2.5 and is currently elevated to 3.3. He has received 2 rounds of the albumin and will receive his third today. We will continue to monitor. Neck Pain: He has a history of cervical surgery. He reports that lidocaine patches did not help. Given his renal function, will use oxycodone as needed for pain. Continue to monitor. Thrombocytopenia ([facility]) Renal mass, left CKD (chronic kidney disease) stage 4, GFR 15-29 ml/min ([facility] [place] Metabolic acidosis with normal anion gap and bicarbonate losses GERD (gastroesophageal reflux disease) Aphasia Continue management for other medical problems per resident / AI note. Disp: Anticipate DC home with spouse when medically ready. Awaiting final speciation for de-escalation of antibiotics and final recs from hepatology. FOUZIA RENE MD Attending Physician Department of Internal Medicine 10/07/2024 Medical Decision Making: Severe exacerbation of chronic illness Discussed with physician/SAWYER from another specialty or practice, other licensed professional (PT/OT/FLIGHT SURVEYOR/RT), or a non-medical community professional: Nephrology, Hepatology Labs reviewed (1 pt each): CMP, CBC Test results reviewed (1 pt each): CXR, Head CT Review of notes from a different specialty or different practice: Nephrology, hepatology Use of parenteral controlled substances * Kiet Gardiner, PharmD - 10/06/2024 1:07 PM EDT Images from the original note were not included. [facility] Clinical Pharmacy Service: Vancomycin Monitoring Consult Julien Gilbert is a 39 y.o. male currently being treated empirically for Abdominal/Pelvic Infection Patient is allergic to adhesive and duloxetine. Pharmacy consulted for vancomycin management by [facility]. Current Anti-Infectives Dose Frequency Start End cefTRIAXone (ROCEPHIN) 2 g in sodium chloride 0.9% 20 mL IV Push 2 g Every 24 hours 10/06/2024 -- Admin Instructions: ADMINISTER IV PUSH. Infuse over 5 minutes. Draw up 20 mL Sodium Chloride 0.9% into empty syringe. Inject 20 mL into vial of Ceftriaxone. Shake well. Withdraw volume into syringe and administer immediately. Route: Intravenous rifAXIMin (XIFAXAN) tablet 550 mg 550 mg 2 times daily 10/06/2024 -- Route: Oral vancomycin (VANCOCIN) 2,750 mg in sodium chloride 0.9 % 500 mL IVPB 2,750 mg Once 10/06/2024 10/07/2024 Admin Instructions: Contact pharmacy if there is a question/concern of whether vancomycin should begiven based on serum drug levels. Route: Intravenous vancomycin intermittent/pulse dosing PLACEHOLDER ORDER Use as directed PRN 10/06/2024 -- Admin Instructions: Patient is receiving intermittent/pulse vancomycin dosing based on random serumlevels. NOTE:This is NOT an active medication order. If a dose of vancomycin is needed, it must be entered as a one-time dose by physicians or pharmacists. Route: Intravenous documented within (last 72 hours) None --Objective Data-- Vitals: 10/06/24 0731 10/06/24 0851 10/06/24 0927 10/06/24 1110 BP: 119/62 128/58 140/74 Pulse: 98 95 95 101 Resp: 16 18 19 Temp: 97.6 ??F (36.4 ??C) 97.4 ??F (36.3 ??C) TempSrc: Oral Axillary SpO2: 100% 97% 100% 100% I/O last 3 completed shifts: In: 60 [P.O.:60] Out: - WBC, BUN, Creatinine (Last 7 days) Today 0737 Today 0401 Today 0104 WBC 5.6 7.6 7.9 BUN 62 61 59 Creatinine 3.40 3.49 3.54 Patient weight not recorded Estimated CrCl: ~35-45 mL/min --Cultures-- Microbiology Results Date and Time Order Name Sensitivity Status Organisms Specimen ID Source 10/06/2024 1:04 AM #2 Blood culture-Peripheral site 2 Preliminary [id number] Peripheral 10/06/2024 1:04 AM #1 Blood culture-Peripheral site 1 Preliminary [id number] Peripheral --Vancomycin Concentrations-- Lab Results (Last 7 days) No relevant labs found --Assessment and Plan-- Patient is a 39 y.o. male being treated with vancomycin empirically for Abdominal/Pelvic infection.(OSH para cultures growing GPCs) Based on patients age and renal function, will load with vancomycin 2750 mg (~24 mg/kg) followed byintermittent pulse dosing. (Utilizing weight of 113 kg per 09/29 office visit) Will check vancomycin serum concentration prior to next dose. Goal vancomycin trough of 15-20 mg/L Pharmacy will continue to monitor therapy for efficacy and toxicity. Thank you for the consult. KIET GARDINER PharmD 10/06/2024 1:07 PM * Eileen Schroeder MD, PhD - 10/06/2024 8:41 AM EDT Department of Internal Medicine Daily Progress Note Chief Complaint / Reason for Follow-Up Julien Gilbert is a 39 y.o. male on hospital day 1. The principal reason for today's follow up visit is Metabolic encephalopathy. Interval History / Subjective This morning, pt was seen on pre-rounds and found be unable to say his name, location and setting. Pt was also unable to identify a phone or pen Pt was able to follow commands when asked during the physical exam. Review of Systems (Focused) Negative except as mentioned above Medications Scheduled Meds: albumin human 25% cefTRIAXone (ROCEPHIN) IVPB 2 g Intravenous Q24H folic acid 1 mg Oral Daily 0900 heparin 5,000 Units Subcutaneous 3 times per day lactulose 20 g Oral TID levothyroxine 75 mcg Oral QAM AC pantoprazole 40 mg Oral QAM AC rifAXIMin 550 mg Oral BID sodium bicarbonate 1,300 mg Oral TID thiamine HCl 100 mg Oral Daily 0900 ursodioL 300 mg Oral BID zinc sulfate 220 mg Oral Daily 0900 Continuous Infusions: PRN Meds: albumin human 25% Vital Signs Temp: [97.4 ??F (36.3 ??C)-97.6 ??F (36.4 ??C)] 97.4 ??F (36.3 ??C) Heart Rate: [95-101] 101 Resp: [16-19] 19 BP: (119-140)/(58-74) 140/74 Intake/Output Summary (Last 24 hours) at 10/06/2024 1142 Last data filed at 10/06/2024 0600 Gross per 24 hour Intake 60 ml Output -- Net 60 ml Physical Exam Physical Exam Constitutional: Appearance: He is ill-appearing and toxic-appearing. He is not diaphoretic. HENT: Head: Atraumatic. Eyes: General: Scleral icterus present. Extraocular Movements: Extraocular movements intact. Cardiovascular: Rate and Rhythm: Normal rate and regular rhythm. Pulmonary: Effort: Pulmonary effort is normal. Abdominal: General: There is distension. Musculoskeletal: Right lower leg: Edema present. Left lower leg: Edema present. Skin: Coloration: Skin is jaundiced. Neurological: Mental Status: He is lethargic and disoriented. Cranial Nerves: Cranial nerves 2-12 are intact. Motor: Weakness present. Comments: Strength 4/5 in UE and LE A&O x 0 Laboratory Data CBC 10/06/2024 \ 9.0 / 5.6 \ / 52 / \ / 25.3 \ Differential 09/16/2024 N 84.2 L 8.0 M 5.1 E 1.5 B 0.7 Renal 10/06/2024 129 100 62 / ___ __ / 98 \ 4.4 18 3.40 \ Ca 9.5 (10/06/2024) Mg 1.8 (10/06/2024) Phos 5.3 (10/06/2024) Lipids No results found for: CHOLTOT , TRIG , HDL , LDL LFTs 10/06/2024 \ 14.3 / \ 7.08 / 57 \ / 29 / \ / 158 \ PT/INR/PTT - 10/06/2024 PT 21.3 INR 1.8 PTT No results found for requested labs within last 3600 days. Invalid input(s): WBCCAST , GRANCAST No results found for: NTPROBNP Lab Results Component Value Date TSH 0.84 10/06/2024 FREET4 0.74 09/03/2024 Diagnostic Studies X-ray Portable Chest Final Result IMPRESSION: Negative portable chest. Report Verified by: Eduardo Franks MD at 10/06/2024 2:33 AM EDT US Retroperitoneal complete (Results Pending) US Duplex Abw-Kpa-Hwgksxq Comp (Results Pending) CT Head WO contrast (Results Pending) Assessment & Plan Julien Gilbert is a 39 y.o. male on HD# 1 with Metabolic encephalopathy. The medical issues being addressed in today's encounter are as follows: Principal Problem: Metabolic encephalopathy Active Problems: Decompensated cirrhosis (CMS-HCC) NADIYA (acute kidney injury) (CMS-HCC) Thrombocytopenia (CMS-HCC) Renal mass, left CKD (chronic kidney disease) stage 4, GFR 15-29 ml/min (CMS-HCC) Metabolic acidosis with normal anion gap and bicarbonate losses GERD (gastroesophageal reflux disease) #Encephalopathy Pt noted to have waxing and waning encephalopathy at home over the last few days, initially suspected to be hyperammonemia by and patient, somewhat improved initially with lactulose; however encephalopathy subsequently worsened again. Notably, pt has a history of decompensated cirrhosis episodes including HRS and hepatic encephalopathy. Currently maintain high suspicion for toxic/metabolic encephalopathy in the setting of possible decompensated alcoholic cirrhosis. Continued to have diarrheal episodes despite completion of oral vancomycin for recent C. Diff. OSH labs with low bicarb to 17 and normal lactate, so will give consideration to ongoing C. Diff. - Ammonia level 10/06: 77 within normal range - UDS - Ethanol level, Tylenol level. Salicylate level -10/06: All Low, no concern for toxin-induced etiology at this time. - PETH labs - Continue home lactulose and rifaximin - UA, Blood Cx - Follow up OSH paracentesis studies, will continue CTX until report communicated. - CXR d/t RLL wheezing - COVID/Flu/RSV - Will review CT images once uploaded, but reads for CT A/P w/o acute abnormality. #Decompensated Alcoholic Cirrhosis Pt abdomen non-acute. Does appear significantly jaundiced with scleral icterus. Bedside paracentesis performed at OSH. Concern for possible SBP but reassured by lack of fever and hemodynamically stable status. - MELD labs - Hepatitis Screening - RUQ Ultrasound with Doppler to evaluate for Portal Vein Thrombosis - Hold home Cipro prophylaxis for SBP - Continue home Zinc - Continue home ursodiol - Asked for paracentesis studies to be sent from OSH for review - Hepatology consult placed, appreciate recs #NAGMA Pt found to have a pH of 7.21 upon admission to , with a HCO3 18 and pCO2 41. Pt is Rx Bicarb tablets at home and has a known history of CKD. pH was improved 7.27 later in the morning. NAGMA likely due to GI loss due to lactulose and diuresis. -Restarted oral Bicarb #Aphasia Patient appears to be unable to name objects when asked, but can readily follow commands. Additionally, pt is unable to verbally answer orientation questions. Authors was able to see pt is frustratedin his inability to verbally communicate. It appears that this waxes and wanes and could be attributed to his encephalopathy, though patient has never presented with this symptom and no head imaging has been performed. . -CT Head w/o contrast #H/o GI Bleed Pt with history of GI bleed in setting of gastric varices, for which IR at OSH had to place 17 coils. 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 - Has previously been on beta blockade for variceal prevention, but did not tolerate beta dominic due to hypotension. #Non-Oliguric NADIYA on CKD Patient noted on OSH labs to have creatinine of 3.6. Baseline creatinine appears to range 2.5-2.9. Per , pt makes urine and has never required dialysis. - Bladder Ultrasound and PVR - UA, urine lytes - Albumin challenge tonight given his NADIYA in setting of hepatic disease - Continue home bicarb tablets - Nephro consult, appreciate recs - Hold home diuretics - Strict I/O's #h/o Left Sided RCC s/p cryoablation Cryoablation was done 2022. On CT A/P at OSH, pt noted to have persistent L sided exophytic renal mass. #Hepatic Lesion of Unk etiology OSH CT A/P with iso-attenuating round nodular outpouching in inf R lobe measuring 3.6 x 3.8cm. Differential to include cyst vs metastatic RCC vs primary hepatic tumor - Hepatology consult, appreciate recs - Consider MRI inpatient #History of AUD - Continue home thiamine repletion - PETH and ETOH level as above #GERD - continue home protonix #HTN - Continue home #HLD #Hypothyroidism - continue home synthroid Nutrition: Diet/Nutrition Orders Diet NPO Frequency: Effective Now Number of Occurrences: Until Specified Code Status: Full Code Signed: EILEEN SCHROEDER MD, PhD 10/06/2024, 11:42 AM Cosigned by Shila Rivera MD at 10/06/2024 7:03 PM EDT Associated attestation - Shila Rivera MD - 10/06/2024 7:03 PM EDT Hospital Medicine Attending Supervision Note [facility] // [facility] Julien Gilbert was seen 10/06/24 on rounds with the resident physician. I personally interviewed and examined the patient. I reviewed the documentation by the resident and agree as documented unless otherwise stated below. Reason for today's visit: Metabolic encephalopathy Assessment & Plan Julien Gilbert is a 39 y.o. male with PMH of cirrhosis 2/2 AUD decompensated by EV, HRS, SBP, ascites, HE, HTN, HLD, RCC s/p ablation, hypothyroid who presented to an OSH on 10/05 with AMS on hospital day 1. The medical issues being addressed in today's encounter are as follows: Principal Problem: Metabolic encephalopathy Active Problems: Decompensated cirrhosis (CMS-HCC) NADIYA (acute kidney injury) (CMS-HCC) Thrombocytopenia (CMS-HCC) Renal mass, left CKD (chronic kidney disease) stage 4, GFR 15-29 ml/min (CMS-HCC) Metabolic acidosis with normal anion gap and bicarbonate losses GERD (gastroesophageal reflux disease) Aphasia #Metabolic Encephalopathy #Cirrhosis d/b EV, HRS, SBP, ascites, HE CTH negative at OSH s/p diagnostic para at OSH growing gram positive cocci and rare gram positive diplococci, started vanc+CTX hepatology consulted Obtain all information from OSH #NADIYA: s/p albumin 100 g (day 2 today), likely HRS, renal consulted #Chronia AGMA: home bicarb Rest of itemized problem list per excellent resident documentation. The HPI, ROS, physical exam, test results, and assessment & plan were reviewed and copied forward (with edits) from a note written by myself or a same-practice partner on 10/05/24. I have updated the history, physical exam, data, assessment, and plan of the note so that it reflects my evaluationand management of the patient on 10/06/2024. SHILA RIVERA MD Attending Physician Division of Hospital Medicine Department of Internal Medicine 7:01 PM, 10/06/2024 * Chelsy Lerner MD - 10/05/2024 2:42 PM EDT Formerly [facility] Department of Medicine TRANSFER CALL NOTE Location [facility] ED History of Present Illness Julien Gilbert is a 39 y.o. male with a past medical history of decompensated cirrhosis suspected dueto alcohol use (decompensated by Esophageal varices, HRS, Ascites, and Hepatic Encephalopathy), being worked up for liver transplant, HTN, HLD, Hypothyroidism, CKD (most recent Cr on d/c of 2.7), presents with confusion and lethargy. Was with family yesterday, who noticed he was more confused. Had increased his lactulose dose at home without any improvement. Still having difficulty speaking. Family called Hepatology who he follows with and was told to go to nearest ED, with plan to transfer to [facility] if needing admission. In the ED, pt with nonfocal neuro exam, reassuring head CT. Abd with RUQ ttp. Found to have signs consistent with cirrhosis, abdominal ascites, and a distended gallbladder with gallstones, and a known renal mass. Diagnostic paracentesis completed with peritoneal fluid studies pending. Started on CTX given his hx of recent SBP in 08/2024, given 1 L due to appearing dry, and labs obtained and noted below. Objective Last Known Vitals: Temp: 97.8 HR: high 90s BP: 117/70 SpO2: 100% on RA Pertinent Lab Studies: Na 129 K 4.2 Cl 101 [id number] BUN 62 (up from baseline) Cr 3.6 (up from baseline) AST 78 ALT 43 T bili 13 (improved from as high as 30 in prior admissions) Ammonia <9 Cultures pending Pertinent Imaging Studies: As noted above. Assessment / Plan Julien Gilbert is a 39 y.o. male who presented to OSH with altered mental status, with known hx of decompensated cirrhosis, in the process of work up for transplant, not responding to increased lactulose dosing and having frequent bowel movements at home. Transfer accepted to Internal Medicine med/surg floor status. Will likely need: Call for diagnostic para results and continue CTX Hepatology Nephrology (hx of HRS with worsening Cr increase) Repeat CMP Repeat CBC Lactate PT/INR Outside Imaging Required: CT Head, CT Abd Pelv Level of Care: floor Chelsy Lerner MD 10/05/2024 2:42 PM documented in this encounter H&P Notes * Mani Quan MD - 10/14/2024 1:10 PM EDT [facility] PRE-SEDATION ASSESSMENT, HISTORY & PHYSICAL Date: 10/14/2024 Julien Gilbert is a 39 y.o. year old male Pre-Procedure Diagnosis/Procedure Indication: pre-op for liver transplant Planned Procedure: Left heart catheterization via right radial artery approach NPO for solids >8 hours, NPO for liquids >8 hours Code Status: Full Code Past Medical History Past Medical History: Diagnosis Date Alcoholic cirrhosis of liver (CMS-HCC) Esophageal varices (CMS-HCC) Hepatorenal syndrome (CMS-HCC) Hypertension Other hyperlipidemia 07/26/2024 Renal cell carcinoma (CMS-HCC) Thrombocytopenia (CMS-HCC) Thyroid disease Difficult intubation Unanswered Problem List[1] Past Surgical History Past Surgical History: Procedure Laterality Date ESOPHAGOGASTRODUODENOSCOPY N/A 10/10/2024 Procedure: EGD; Surgeon: Lino Soto MD; Location: ENDOSCOPY; Service: Gastroenterology; Laterality: N/A; Medications Home Medications Medication Sig Taking? Last Dose ciprofloxacin HCl (CIPRO) 500 MG tablet Take 1 tablet (500 mg total) by mouth daily. Yes Past Week folic acid (FOLVITE) 1 MG tablet Take 1 tablet (1 mg total) by mouth daily. Yes Past Week lactulose (CHRONULAC) 10 gram/15 mL solution Take 30 mLs (20 g total) by mouth 3 times a day as needed (goal 2-3 bowel movements a day). Yes 10/05/2024 Morning levothyroxine (SYNTHROID) 75 MCG tablet Take 1 tablet (75 mcg total) by mouth every morning before breakfast. Yes 10/05/2024 pantoprazole (PROTONIX) 40 MG tablet Take 1 tablet (40 mg total) by mouth every morning before breakfast. Yes Past Week potassium chloride (KLOR-CON M20) 20 MEQ tablet Take 2 tablets (40 mEq total) by mouth daily. Yes Past Week rifAXIMin (XIFAXAN) 550 mg Tab tablet Take 1 tablet (550 mg total) by mouth 2 times a day. Yes 10/05/2024 Morning sodium bicarbonate 650 MG tablet Take 2 tablets (1,300 mg total) by mouth 3 times a day. Yes 10/05/2024 Morning thiamine HCl (VITAMIN B-1) 100 MG tablet Take 1 tablet (100 mg total) by mouth daily. Yes Past Week traMADoL (ULTRAM) 50 mg tablet Take 1 tablet (50 mg total) by mouth every 12 hours as needed for Pain (Pain). Yes Past Week ursodioL (ACTIGALL) 300 mg capsule Take 1 capsule (300 mg total) by mouth 2 times a day. Yes 10/05/2024 Morning zinc sulfate (ZINCATE) 50 mg zinc (220 mg) capsule Take 1 capsule (220 mg total) by mouth daily. Yes Past Week Allergies: Adhesive Duloxetine Abbreviated Review of Systems (ROS) Functional Capacity: SUMNER ACTIVITY SCALE: 1 - Eating, getting dressed; working at a desk. Chest Pain: no Shortness of Breath/Dyspnea or Exertion: no Recent URI: unknown Airway, ASA Score & Sedation Specific History Concerns Mallampati: II ASA Score: III - Moderate systematic disease with functional limitations Sedation-Specific History Concerns: None This patient was re-evaluated immediately prior to sedation administration. Focused Physical Exam: Height ; Weight ; BMI Body mass index is 32.07 kg/m??. Vitals: 10/14/24 1415 BP: 104/63 Pulse: 75 Resp: 16 Temp: SpO2: 100% Neuro: AOx3 AUC For Cath Indication(s) for Regional Sales Executive Visit: Visit Indicators: Suspected CAD 2. Chest Pain Symptom Assessment: Asymptomatic 3. Heart Failure: Yes Class II 4. [facility] Clinical Frailty Scale: Mildly Frail Sedation Plan: Moderate Sedation with Local Anesthesia Antibiotic prophylaxis is not indicated. Mani Quan Interventional Digital X Ray Service Engineer Pager: [phone] [1] Patient Active Problem List Diagnosis Decompensated cirrhosis (CMS-HCC) Acute kidney injury superimposed on CKD (CMS-HCC) Alcohol use disorder Metabolic encephalopathy Hypertension Other hyperlipidemia Thrombocytopenia (CMS-HCC) Renal mass, left Abdominal pain Hypokalemia CKD (chronic kidney disease) stage 4, GFR 15-29 ml/min (CMS-HCC) Metabolic acidosis with normal anion gap and bicarbonate losses GERD (gastroesophageal reflux disease) Hypothyroidism Itching Anemia BRBPR (bright red blood per rectum) SBP (spontaneous bacterial peritonitis) (CMS-HCC) C Diff Diarrhea C. difficile diarrhea Neck pain with history of cervical spinal surgery Cosigned by Irving Matta MD at 10/16/2024 10:54 AM EDT Associated attestation - Irving Matta MD - 10/16/2024 10:54 AM EDT Agree * Gerri Peterson MD - 10/10/2024 10:05 AM EDT [facility] PRE-SEDATION ASSESSMENT, HISTORY & PHYSICAL Date: 10/10/2024 Julien Gilbert is a 39 y.o. year old male Pre-Procedure Diagnosis/Procedure Indication: Decompensated cirrhosis, gastroesophageal variceal surveillance Planned Procedure: EGD with possible variceal banding NPO for solids >8 hours, NPO for liquids >8 hours Past Medical History Past Medical History: Diagnosis Date Alcoholic cirrhosis of liver (CMS-HCC) Alcoholic hepatitis Esophageal varices (CMS-HCC) Hepatorenal syndrome (CMS-HCC) Hypertension Other hyperlipidemia 07/26/2024 Renal cell carcinoma (CMS-HCC) Thrombocytopenia (CMS-HCC) Thyroid disease Difficult intubation Unanswered Problem List[1] Past Surgical History History reviewed. No pertinent surgical history. Medications Home Medications Medication Sig Taking? Last Dose ciprofloxacin HCl (CIPRO) 500 MG tablet Take 1 tablet (500 mg total) by mouth daily. Yes Past Week folic acid (FOLVITE) 1 MG tablet Take 1 tablet (1 mg total) by mouth daily. Yes Past Week lactulose (CHRONULAC) 10 gram/15 mL solution Take 30 mLs (20 g total) by mouth 3 times a day as needed (goal 2-3 bowel movements a day). Yes 10/05/2024 Morning levothyroxine (SYNTHROID) 75 MCG tablet Take 1 tablet (75 mcg total) by mouth every morning before breakfast. Yes 10/05/2024 pantoprazole (PROTONIX) 40 MG tablet Take 1 tablet (40 mg total) by mouth every morning before breakfast. Yes Past Week potassium chloride (KLOR-CON M20) 20 MEQ tablet Take 2 tablets (40 mEq total) by mouth daily. Yes Past Week rifAXIMin (XIFAXAN) 550 mg Tab tablet Take 1 tablet (550 mg total) by mouth 2 times a day. Yes 10/05/2024 Morning sodium bicarbonate 650 MG tablet Take 2 tablets (1,300 mg total) by mouth 3 times a day. Yes 10/05/2024 Morning thiamine HCl (VITAMIN B-1) 100 MG tablet Take 1 tablet (100 mg total) by mouth daily. Yes Past Week traMADoL (ULTRAM) 50 mg tablet Take 1 tablet (50 mg total) by mouth every 12 hours as needed for Pain (Pain). Yes Past Week ursodioL (ACTIGALL) 300 mg capsule Take 1 capsule (300 mg total) by mouth 2 times a day. Yes 10/05/2024 Morning zinc sulfate (ZINCATE) 50 mg zinc (220 mg) capsule Take 1 capsule (220 mg total) by mouth daily. Yes Past Week Allergies: Adhesive Duloxetine Abbreviated Review of Systems (ROS) Chest Pain: no Shortness of Breath/Dyspnea or Exertion: no Recent URI: no Airway, ASA Score & Sedation Specific History Concerns Mallampati: II ASA Score: IV - Severe systemic disease that is a constant threat to life Sedation-Specific History Concerns: None This patient was re-evaluated immediately prior to sedation administration. Focused Physical Exam: Height ; Weight ; BMI Body mass index is 32.07 kg/m??. Vitals: 10/10/24 0850 BP: 102/55 Pulse: 93 Resp: 16 Temp: SpO2: 99% Neuro: AOX4 Cardiovascular: RRR Respiratory: On room air, no increased work of breathing Sedation Plan: MAC Antibiotic prophylaxis is not indicated. [1] Patient Active Problem List Diagnosis Decompensated cirrhosis (CMS-HCC) Acute kidney injury superimposed on CKD (CMS-HCC) Alcohol use disorder Metabolic encephalopathy Hypertension Other hyperlipidemia Thrombocytopenia (CMS-HCC) Renal mass, left Abdominal pain Hypokalemia CKD (chronic kidney disease) stage 4, GFR 15-29 ml/min (CMS-HCC) Metabolic acidosis with normal anion gap and bicarbonate losses GERD (gastroesophageal reflux disease) Hypothyroidism Itching Anemia BRBPR (bright red blood per rectum) SBP (spontaneous bacterial peritonitis) (CMS-HCC) C Diff Diarrhea C. difficile diarrhea Neck pain with history of cervical spinal surgery Cosigned by Lino Soto MD at 10/10/2024 11:58 AM EDT Associated attestation - Lino Soto MD - 10/10/2024 11:58 AM EDT Attending Physician's Note: I have personally seen and examined the patient, reviewed the chart, imaging and labs and have discussed the case with Dr. Peterson, agree with his note and confirm it. Lino Soto MD GI and Hepatology Staff * Kemar Sahni MD - 10/09/2024 3:35 PM EDT Liver Transplant Surgery Evaluation and Note Patient: Julien Gilbert Age: 39 y.o. Reason for Visit: Liver Transplant Evaluation HPI: A 39 y.o. male with a history of cirrhosis secondary to ETOH decompensated by large volume ascites now requiring paracentesis twice weekly, hepatic encephalopathy, bleeding esophageal Varices. Current MELD score is MELD 3.0: 37 at 10/09/2024 1:05 PM Calculated from: Serum Creatinine: 2.89 mg/dL at 10/09/2024 1:05 PM Serum Sodium: 134 mmol/L at 10/09/2024 1:05 PM Total Bilirubin: 9 mg/dL at 10/09/2024 4:59 AM Serum Albumin: 3.4 g/dL at 10/09/2024 4:59 AM INR(ratio): 2.4 at 10/09/2024 4:59 AM Age at listing (hypothetical): 39 years Sex: Male at 10/09/2024 1:05 PM and blood type is O . Prior abdominal surgeries include: None History of portal vein thrombosis: No Review of Systems: Review of systems performed. See RAFFI RAO review. Vital Signs: BP Readings from Last 3 Encounters: 10/09/24 125/77 09/09/24 126/69 09/02/24 103/60 Wt Readings from Last 3 Encounters: 10/09/24 (!) 262 lb (118.8 kg) 09/05/24 (!) 262 lb 9.6 oz (119.1 kg) 09/02/24 (!) 258 lb (117 kg) BMI: Estimated body mass index is 31.89 kg/m?? as calculated from the following: Height as of 09/05/24: 6' 4 (1.93 m). Weight as of this encounter: 262 lb (118.8 kg). BSA: Estimated body surface area is 2.52 meters squared as calculated from the following: Height as of 09/05/24: 6' 4 (1.93 m). Weight as of this encounter: 262 lb (118.8 kg). Vitals: 10/09/24 0105 10/09/24 0725 10/09/24 1140 10/09/24 1418 BP: 123/75 115/63 125/77 BP Location: Right upper arm Right upper arm Right upper arm Patient Position: Lying Lying Lying BP Cuff Size: Pulse: 101 93 96 Resp: 18 18 18 Temp: 97.9 ??F (36.6 ??C) 97.7 ??F (36.5 ??C) 98 ??F (36.7 ??C) TempSrc: Oral Oral Oral SpO2: 100% 100% 100% Weight: (!) 262 lb (118.8 kg) The following portions of the patient history were reviewed and updated as appropriate: allergies, current medications, family, medical, surgical and social history and problem list. Past Medical History: Past Medical History: Diagnosis Date Alcoholic cirrhosis of liver (CMS-HCC) Alcoholic hepatitis Esophageal varices (CMS-HCC) Hepatorenal syndrome (CMS-HCC) Hypertension Other hyperlipidemia 07/26/2024 Renal cell carcinoma (CMS-HCC) Thrombocytopenia (CMS-HCC) Thyroid disease Past Surgical History: History reviewed. No pertinent surgical history. Family History: History reviewed. No pertinent family history. Social History: Social History Socioeconomic History Marital status: Spouse [...] Resource Strain: Low Risk (07/09/2024) Received from [facility] Overall Financial Resource Strain (CARDIA) Difficulty of Paying Living Expenses: Not hard at all Food Insecurity: No Food Insecurity (10/06/2024) Hunger Vital Sign Worried About Running Out of Food in the Last Year: Never true Ran Out of Food in the Last Year: Never true Transportation Needs: No Transportation Needs (10/06/2024) PRAPARE - Transportation Lack of Transportation (Medical): No Lack of Transportation (Non-Medical): No Physical Activity: Unknown (07/14/2024) Received from [facility] Exercise Vital Sign Days of Exercise per Week: Patient unable to answer Minutes of Exercise per Session: Not on file Stress: Patient Unable To Answer (07/14/2024) Received from [facility] [place] [facility] [employer] - Occupational Stress Questionnaire Feeling of Stress : Patient unable to answer Social Connections: Patient Unable To Answer (07/14/2024) Received from [facility] Social Connection and Isolation Panel [NHANES] Frequency of Communication with Friends and Family: Patient unable to answer Frequency of Social Gatherings with Friends and Family: Patient unable to answer Attends Jainism Services: Patient unable to answer Active Member of Clubs or Organizations: Patient unable to answer Attends Club or Organization Meetings: Patient unable to answer Marital Status: Patient unable to answer Intimate Partner Violence: Not At Risk (10/06/2024) Humiliation, Afraid, Rape, and Kick questionnaire Fear of Current or Ex-Partner: No Emotionally Abused: No Physically Abused: No Sexually Abused: No Housing Stability: Low Risk (10/06/2024) Housing Stability Vital Sign Unable to Pay for Housing in the Last Year: No Number of Times Moved in the Last Year: 0 Homeless in the Last Year: No Medications: Current Facility-Administered Medications Medication Dose Frequency Provider Last Admin atropine atropine 0.25-0.5 mg Q5 Min PRN Tonya Henriquez MD cefTRIAXone (ROCEPHIN) IVPB 2 g Q24H Bisi Hernandez, DO 2 g at 10/09/24 1312 DOBUTamine (DOBUTREX) 200 mg in sodium chloride 0.9 % 50 mL infusion for Stress Test 1-20 mcg/kg/min Once Tonya Henriquez MD folic acid 1 mg Daily 0900 Bisi Akella, DO 1 mg at 10/09/24 0801 heparin 5,000 Units 3 times per day Bisi Hernandez, DO 5,000 Units at 10/09/24 1306 lactulose 20 g TID Bisi Hernandezella, DO 20 g at 10/09/24 1305 levothyroxine 75 mcg QAM Bisi Hernandezella, DO 75 mcg at 10/09/24 0801 methocarbamoL 500 mg TID Eileen Schroeder MD, PhD 500 mg at 10/09/24 1305 metoprolol tartrate metoprolol tartrate 2.5 mg Q5 Min PRN Tonya Henriquez MD midodrine 10 mg TID Chari Vanegas MD 10 mg at 10/09/24 1308 oxyCODONE 2.5 mg Q6H PRN Chari Vanegas MD Or oxyCODONE 5 mg Q6H PRN Chari Vanegas MD 5 mg at 10/09/24 1418 pantoprazole 40 mg QAM Bisi Akella, DO 40 mg at 10/09/24 0802 potassium chloride ER 40 mEq Once Chari Vanegas MD rifAXIMin 550 mg BID Bisi Akana maría, DO 550 mg at 10/09/24 0802 sodium bicarbonate 1,300 mg TID Bisi Hernandezella, DO 1,300 mg at 10/09/24 1305 sodium chloride 0.9 % 250 mL Once Tonya Henriquez MD thiamine HCl 100 mg Daily 0900 Bisi Akella, DO 100 mg at 10/09/24 0801 ursodioL 300 mg BID Bisi Hernandez, DO 300 mg at 10/09/24 0801 vancomycin intermittent/pulse dosing PLACEHOLDER ORDER UD EMERSON Blanchard MD zinc sulfate 220 mg Daily 0900 Biis Hernandez DO 220 mg at 10/09/24 0802 Allergies: Allergies[1] Physical Exam: Gen: No acute distress. Resting in bed. HEENT:. + scleral icterus. CV: Regular rate and rhythm. Lungs:Comfortable on RA Abdomen: Soft, nontender, distended with fluid thrill Skin: jaundiced Neuro: Alert. No focal deficits. No asterixis Psych: Appropriate mood and affect. Labs: Lab name 10/09/24 0459 10/09/24 0814 10/09/24 1305 HEMOGLOBIN 8.0* -- -- HEMATOCRIT 21.8* -- -- MEAN CORPUSCULAR VOLUME 100.5* -- -- PLATELETS 36* -- -- SODIUM 134 < > 134 POTASSIUM 3.3* < > 3.7 CHLORIDE 107 < > 105 CO2 16* < > 17* BUN 56* < > 53* CREATININE 2.98* < > 2.89* GLUCOSE 112* < > 108* PHOSPHORUS 3.5 < > 3.4 ALBUMIN 3.4* -- -- ALBUMINKID 3.4* < > 3.6 CALCIUM 9.0 < > 9.3 AST 38 -- -- ALT 18 -- -- BILIRUBIN TOTAL 9.0* -- -- ALK PHOS 122 -- -- INR 2.4* -- -- < > = values in this interval not displayed. Imaging: @[id number]@ I have personally reviewed the imaging and have noted the following: Large recanalized umbilical vein Perihilar varices Replaced right hepatic artery Splenomegaly Spontaneous splenorenal shunt Large volume ascites, No portal vein thrombosis Assessment/Plan: A 39 y.o. male with ETOH decompensated by ascites, hepatic encephalopathy,bleeding esophageal Varices. Use and allocation of SCD, LORRY WEIGHER, DCD and LDLT allografts discussed in detail. Proceed with age appropriate transplant evaluation. The risks and benefits, rationale, treatment plan and multidisciplinary evaluation of liver transplantation were discussed with the patient. Specifically, I explained living vs. donor transplantation, standard criteria vs. extended criteria livers. We discussed organ allocation and waiting time in this region. I reviewed our SRTR data as well as national SRTR data for liver transplantation. I reviewed the differences in graft and patient survival and discussed our 30 day, 1 year and 3 year survival results. We discussed the benefits of transplantation including a significant survival benefit as well as a quality of life benefit. I outlined the meaning of MELD score and its use in organ allocation. Use of extended criteria livers carries a higher rate of long-term graft loss and delayed graft function.I also explained the use and rationale of CDC or PHS increased high-risk livers which carry a risk of HIV, HBV or HCV infection of 1% with the use of nucleic acid testing. We also discussed the operative risks including hepatic artery stenosis (1%), portal vein stenosis (1%), primary non function (1-5%), seroma (10%), wound infection, reoperation (30%), bile duct stenosis and stricture (10%) or leak and finally from surgery (5%). I also explained the retirement risks of transplantation and immunosuppression including viral infection and cancer both solid organand lymphoma. Kemar Sahni MD, Fellow, Multiorgan Abdominal Transplant Surgery. [facility]. 10/09/2024 3:16 PM [1] Allergies Allergen Reactions Adhesive Itching and Rash Tegaderm adhesive on Ivs, pt states its tolerable Duloxetine Other (See Comments) Became Manic Cosigned by Harvey Domínguez III, MD at 10/20/2024 9:55 AM EDT Associated attestation - Harvey Domínguez III, MD - 10/20/2024 9:55 AM EDT I saw and evaluated the patient on 10/09/24, and discussed with the SAWYER/resident team. I agree with the SAWYER/resident???s findings and plan as documented in the SAWYER/resident???s note. Great surgical candidate for liver txp. Will qualify for safety net on 10/22. Despite high meld score I think he will be fine to wait until that point to txp --- Diandra Domínguez III, MD Transplant Surgery (cell) * Neymar Ortiz MD - 10/06/2024 12:00 AM EDT [facility] Internal Medicine - History and Physical Chief Concern Encephalopathy History of Present Illness Julien Gilbert is a 39 y.o. male with a past medical history of decompensated cirrhosis suspected dueto alcohol use (decompensated by Esophageal varices/gastric varices, HRS, Ascites, and Hepatic Encephalopathy), being worked up for liver transplant, HTN, HLD, Hypothyroidism, CKD (Basline ~2.5-2.9),Left sided RCC s/p ablation, ?congenitally small R kidney, who presents with confusion and lethargy. Patient is at bedside. She notes that the patient has been intermittently confused. She notes that he can respond yes or no to questions or statements and follow commands but struggles to generate sentences or complete thoughts. She notes he isn't conversing like normal. She states that they thought it was related to his ammonia level, so the patient took his lactulose yesterday and had several watery bowel movements. His mental status improved initially but then states he has returned back to his mental state as described above. Importantly the patient just completed treatment for C.Diff with oral vancomycin. She notes that hehas had continued diarrhea. She states she thought it was attributed to the lactulose as above, butnotes that it has occurred before taking lactulose and after taking lactulose. Pt notes that 4episodes of diarrhea today - notes it is not foul smelling. Denies hematochezia or melena with thisdiarrhea. She notes that he does have internal hemorrhoids however. She states that he has been SOB but notes that this symptom is somewhat chronic and related to abd distension for his ascites. She notes that he has two paracenteses weekly, with last paracentesis being 10/03/24. She states that they always give the patient albumin replacement, and on Sunday, they infused 3 bags of albumin. She denies fevers, rigors, chest pain, nausea, vomiting, dysuria, hematemesis, constipation, melena, hematochezia. reports pt did note pain under R ribcage yesterday but notes this is not uncommon for him to report. Pt arrived with manilla folder of paperwork from OSH and a disk that was taken to Radiology overnight for imaging upload. [facility] performed a bedside paracentesis and sent studies for SBP analysis. Willcontact [facility] to see if labs have resulted. Review of Systems 14 pt ROS conducted and negative aside from that mentioned in above HPI Past Medical and Social History Lives in [place], [place] at bedside Notes that the patient has alcohol cirrhosis, has been sober for last 4 months reports pt has no history of marijuana, cocaine, meth, or heroin use No past surgical history on file. No family history on file. Social History[1] Physical Exam Temp: [97.5 ??F (36.4 ??C)] 97.5 ??F (36.4 ??C) Heart Rate: [98] 98 Resp: [18] 18 BP: (132)/(69) 132/69 Physical Exam Constitutional: Appearance: Normal appearance. He is ill-appearing and toxic-appearing. He is not diaphoretic. HENT: Head: Normocephalic and atraumatic. Eyes: General: Scleral icterus present. Cardiovascular: Rate and Rhythm: Normal rate and regular rhythm. Heart sounds: Normal heart sounds. No murmur heard. No friction rub. No gallop. Pulmonary: Effort: Pulmonary effort is normal. No respiratory distress. Breath sounds: Normal breath sounds. No rhonchi or rales. Comments: Expiratory wheeze heard in the RLL Abdominal: General: Bowel sounds are normal. There is no distension. Palpations: Abdomen is soft. Tenderness: There is no abdominal tenderness. There is no guarding or rebound. Comments: Pt with protuberant abdomen, but no fluid wave identified Nontender to palpation throughout Musculoskeletal: General: Normal range of motion. Cervical back: Normal range of motion. Skin: General: Skin is warm and dry. Coloration: Skin is jaundiced. Neurological: Mental Status: He is alert. Comments: Alert Pt unable to recall name. Unable to say year. Unable to communicate his birthdate to me. In asking these questions, it was clear that the patient was frustrated with his inability to recall these facts. Pupils 3mm equal round and reactive to light bilaterally, EOMI Face is symmetric without facial droop Difficult to assess speech given confusion and lack of response as noted in HPI CN II-XII intact - able to assess as pt able to follow commands Pt spontaneously moving all 4 extremities to anti-gravity No asterixis No tremor or fasciculations noted Did not assess gait Diagnostic Studies Labs and Imaging reviewed from OSH Repeat labs pending on admission to [facility] Assessment & Plan Julien Gilbert is a 39 y.o. male with a past medical history of decompensated cirrhosis suspected dueto alcohol use (decompensated by Esophageal varices/gastric varices, HRS, Ascites, and Hepatic Encephalopathy), being worked up for liver transplant, HTN, HLD, Hypothyroidism, CKD (Basline ~2.5-2.9),Left sided RCC s/p ablation, ?congenitally small R kidney, who presents with confusion and lethargy. #Encephalopathy Pt noted to have waxing and waning encephalopathy at home over the last few days, initially suspected to be hyperammonemia by and patient, somewhat improved initially with lactulose; however encephalopathy subsequently worsened again. Notably, pt has a history of decompensated cirrhosis episodes including HRS and hepatic encephalopathy. Given this patients preserved R-sided strength, maintain low suspicion for brocas or wernickes aphasia due to an MCA Stroke and given preserved Cranial nerves on testing, low suspicion for brainstem stroke. Pt able to follow commands and appears acutely toxic/ill. Currently maintain high suspicion for toxic/metabolic encephalopathy in the setting of possible decompensated alcoholic cirrhosis. Other differential diagnoses include ethanol toxicity, hyperammonemia, uremia, UTI, sepsis, thyroid dysfunction, hyperbilirubinemia (as outside hospital Total Bili of 30). He has continued to have diarrheal episodes despite completion of oral vancomycin for recent C. Diff. OSH labs with low bicarb to 17 and normal lactate, so will give consideration to ongoing C. Diff. - Ammonia level - UDS - Ethanol level, Tylenol level. Salicylate level - PETH - Continue home lactulose and rifaximin - UA, Blood Cx - Follow up OSH paracentesis studies - CXR d/t RLL wheezing - CTX for now pending para studies - COVID/Flu/RSV - Will review CT images once uploaded, but reads for CT A/P w/o acute abnormality. #Decompensated Alcoholic Cirrhosis Pt abdomen non-acute. Did not appreciate significant fluid wave. Does appear significantly jaundiced with scleral icterus. Does have asterixis and ammonia level at OSH wnl. Bedside paracentesis performed at OSH. Concern for possible SBP but reassured by lack of fever and hemodynamically stable status. - MELD labs - Hepatitis Screening - RUQ Ultrasound with Doppler to evaluate for Portal Vein Thrombosis - Hold home Cipro prophylaxis for SBP - Continue home Zinc - Continue home ursodiol - Asked for paracentesis studies to be sent from OSH for review - Hepatology consult placed, appreciate recs #H/o GI Bleed Pt with history of GI bleed in setting of gastric varices, for which IR at OSH had to place 17 coils. 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 - Has previously been on beta blockade for variceal prevention, but did not tolerate beta dominic due to hypotension. #Non-Oliguric NADIYA on CKD Patient noted on OSH labs to have creatinine of 3.6. Baseline creatinine appears to range 2.5-2.9. Per , pt makes urine and has never required dialysis. - Bladder Ultrasound and PVR - UA, urine lytes - Albumin challenge tonight given his NADIYA in setting of hepatic disease - Continue home bicarb tablets - Nephro consult, appreciate recs - Hold home diuretics - Strict I/O's #h/o Left Sided RCC s/p cryoablation Cryoablation was done 2022. On CT A/P at OSH, pt noted to have persistent L sided exophytic renal mass. #Hepatic Lesion of Unk etiology OSH CT A/P with iso-attenuating round nodular outpouching in inf R lobe measuring 3.6 x 3.8cm. Differential to include cyst vs metastatic RCC vs primary hepatic tumor - Hepatology consult, appreciate recs - Consider MRI inpatient #History of AUD - Continue home thiamine repletion - PETH and ETOH level as above #GERD - continue home protonix #HTN - Continue home #HLD #Hypothyroidism - continue home synthroid Prior to Admission Med Status: Medications confirmed and reconciled DVT Prophylaxis: subcutaneous heparin (prophylaxis) Code Status: Full Code NEYMAR ORTIZ MD 10/06/2024 12:00 AM [1] Social History Tobacco Use Smoking status: Former Types: Cigarettes Smokeless tobacco: Current Substance Use Topics Alcohol use: Yes Comment: History of alcohol abuse, reports no use in 3 week- typically endorses use as 4 glasses ofwine a days Drug use: Yes Types: Marijuana Cosigned by Angie Blanchard MD at 10/06/2024 6:04 AM EDT Associated attestation - Angie Blanchard MD - 10/06/2024 6:04 AM EDT Hospital Medicine Attending Supervision Note [facility] // [facility] Julien Gilbert was seen 10/06/24 on rounds with the resident physician. I personally interviewed and examined the patient. I reviewed the documentation by the resident and agree as documented unless otherwise stated below. Reason for today's visit: Decompensated cirrhosis (CMS-HCC) 39 y.o. 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 HE was seen at [facility] ED were CT head unremarkable and RUQ with gallstones, abdominal ascites diagnostic para done and started on empiric CTX. Labs remarkable at OSH for K 4.2 Cl 101 [id number] BUN 62 (up from baseline) Cr 3.6 baseline 2.3-2.4 AST 78 ALT 43 T bili 13 Supplemental Exam: AAOX1 Awake and follows commands No asterixis on exam Distended abdomen with fluid shift and ascites Trace edema at the ankles Assessment & Plan Julien Gilbert is a 39 y.o. male on hospital day 1. The medical issues being addressed in today's encounter are as follows: Principal Problem: Decompensated cirrhosis (CMS-HCC) Active Problems: NADIYA (acute kidney injury) (CMS-HCC) Metabolic acidosis with normal anion gap and bicarbonate losses #Encephalopathy DDX: metabolic encephalopathy in the setting of underlying infection and NADIYA less likely hepatic encephalopathy due to lack of asterixis and adequate BM - ammonia - UDS - Eth - PETH - continue lactulose and rifaxamin (hold after 3BM) - ruleout underlying infextion UA, blood cx following paracentesis studies - CTX for now peding para studies #Decompensated cirrhosis suspected due to alcohol use MELD 3.0: 37 at 10/06/2024 4:01 AM Calculated from: Serum Creatinine: 3.49 mg/dL (Using max of 3 mg/dL) at 10/06/2024 4:01 AM Serum Sodium: 129 mmol/L at 10/06/2024 4:01 AM Total Bilirubin: 14.7 mg/dL at 10/06/2024 4:01 AM Serum Albumin: 3.4 g/dL at 10/06/2024 4:01 AM INR(ratio): 1.8 at 10/06/2024 4:01 AM Age at listing (hypothetical): 39 years Sex: Male at 10/06/2024 4:01 AM - ascites- diagnostic paracentesis pending studies RUQ with doppler - HE- continue lactulose and rifaximin and zinc - BLE edema- holding diuretics due to NADIYA - Esophageal varices- EGD 07/29 w/ nonbleeding grade 1 and 2 varices, portal gastropathy w/ small spot of blood s/p APC not on BB due to hypotension in the past - HCC- recommended outpatient liver MRI to better characterize liver lesion seen on OSH CTAP - consult hepatology #Non-oliguric NADIYA #NAGMA DDX: pre-renal vs HRS - bladder ultrasound and PVR - UA, Urine sodium - continue sodium bicarb 1300mg TID - albumin challenge - accurate I/O Decision Making: Severe exacerbation of chronic illness // LEVEL 3 needs 2/3 Discussed with physician/SAWYER from another specialty or practice, other licensed professional (PT/OT/FLIGHT SURVEYOR/RT), or a non-medical community professional: ed team Labs reviewed (1 pt each): cbc and renal The HPI, ROS, physical exam, test results, and assessment & plan were reviewed and copied forward (with edits) from a note written by myself or a same-practice partner on 10/05/24. I have updated the history, physical exam, data, assessment, and plan of the note so that it reflects my evaluationand management of the patient on 10/06/2024. ANGIE BLANCHARD MD Attending Physician Division of Hospital Medicine Department of Internal Medicine Pager ID: [phone] 6:04 AM, 10/06/2024 documented in this encounter Procedure Notes * Shivani Hogue CNP - 10/10/2024 1:55 PM EDT Interventional Radiology Post-Procedure Note Date: 10/10/2024 Patient: Julien Gilbert : 1985 IR Procedure(s) Performed: Diagnostic and therapeutic paracentesis Operators: BAKARI WAHL CNP, Pre-operative diagnosis: Ascites Post-operative diagnosis: Same Intra-procedural Medications: Local/SQ lidocaine 1% with epi IV albumin per protocol - per primary team Findings: Successful diagnostic and therapeutic paracentesis Specimens removed: 8L clear, yellow ascites Estimated Blood Loss: Minimal (less than 15mL) Complications: None Access site(s): RLQ abdomen Post procedure care/monitoring: Monitor for bleeding, infection and increased abdominal pain. Will replace volume removal >5L with IV albumin per protocol. Recommendations/Follow-up: Return to IR when indicated or with increasing ascites. Please refer to full dictated Interventional Radiology report for details of findings/procedures, which can be located in EPIC Procedures (or EPIC Imaging) Tabs. Please call with any questions. BAKARI WAHL CNP Vascular & Interventional Radiology 10/10/2024,1:55 PM [facility]: [phone]) * Lino Soto MD - 10/10/2024 12:06 PM EDT EGD Brief Op Note Julien Gilbert 10/05/2024 - 10/10/2024 Pre-op Diagnosis: Alcoholic cirrhosis of liver with ascites (CMS-HCC) [K70.31] Post-op Diagnosis: Portal gastropathy, Medium size, non-bleeding esophageal varices Procedure(s): EGD Surgeon(s): Lino Soto MD Anesthesia: MAC (Monitor Anesthesia Care) Staff: Fellow: Gerri Peterson MD Endoscopy Nurse: Kandice Castaneda, RN News Librarian: Diana Kemp Estimated Blood Loss: Minimal Specimens: Drains: There were no complications unless listed below. LINO SOTO MD Date: 10/10/2024 Time: 12:18 PM * Lino Soto MD - 10/10/2024 11:48 AM EDT [id number] Procedure Date: 10/10/2024 11:48 AM Patient Name: Julien Gilbert Date of : 1985 Admit Type: Inpatient Age: 39 Gender: Male Note Status: Finalized Attending MD: Lino Soto MD, [id number] Procedure: Upper GI endoscopy Indications: Gastroesopahgeal variceal surveillance Providers: Lino Soto MD, Gerri Peterson MD (Fellow) Referring MD: Provider Not in System Medicines: Monitored Anesthesia Care Complications: No immediate complications. Procedure: Pre-Anesthesia Assessment: - Prior to the procedure, a History and Physical was performed, and patient medications and allergies were reviewed. The patient is competent. The risks and benefits of the procedure and the sedation options and risks were discussed with the patient. All questions were answered and informed consent was obtained. Patient identification and proposed procedure were verified by the physician, the nurse, the quarter section ironer and the endoscopic technician in the pre-procedure area in the procedure room. Mental Status Examination: alert and oriented. Airway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 total) by mouth every 12 hours as needed for Pain (Pain). Yes Past Week ursodioL (ACTIGALL) 300 mg capsule Take 1 capsule (300 mg total) by mouth 2 times a day. Yes 10/05/2024 Morning zinc sulfate (ZINCATE) 50 mg zinc (220 mg) capsule Take 1 capsule (220 mg total) by mouth daily. Yes Past Week Inpatient Meds: Scheduled Meds: [START ON 10/12/2024] ciprofloxacin HCl 500 mg Oral Q24H folic acid 1 mg Oral Daily 0900 heparin 5,000 Units Subcutaneous 3 times per day lactulose 20 g Oral TID levothyroxine 75 mcg Oral QAM AC melatonin 3 mg Oral Nightly (2100) methocarbamoL 500 mg Oral TID midodrine 10 mg Oral TID pantoprazole 40 mg Oral QAM AC rifAXIMin 550 mg Oral BID sodium bicarbonate 1,300 mg Oral TID thiamine HCl 100 mg Oral Daily 0900 ursodioL 300 mg Oral BID zinc sulfate 220 mg Oral Daily 0900 Continuous Infusions: sodium chloride 0.9 % PRN Meds:.acetaminophen, diphenhydrAMINE-zinc acetate, loratadine, metoprolol tartrate, oxyCODONE OR oxyCODONE Allergy: Allergies[1] Objective: Temp: [97.5 ??F (36.4 ??C)-97.8 ??F (36.6 ??C)] 97.7 ??F (36.5 ??C) Heart Rate: [79-89] 84 Resp: [14-17] 16 BP: (96-111)/(50-67) 109/67 Intake/Output Summary (Last 24 hours) at 10/11/2024 1818 Last data filed at 10/11/2024 0121 Gross per 24 hour Intake 880 ml Output 700 ml Net 180 ml I/O last 3 completed shifts: In: 2520 [P.O.:2070; I.V.:450] Out: 700 [Urine:700] Wt Readings from Last 5 Encounters: 10/10/24 (!) 263 lb 8 oz (119.5 kg) 09/05/24 (!) 262 lb 9.6 oz (119.1 kg) 09/02/24 (!) 258 lb (117 kg) 08/17/24 (!) 242 lb 11.2 oz (110.1 kg) 07/28/24 (!) 245 lb (111.1 kg) Date 10/10/24 1500 - 10/11/24 0659 10/11/24 0700 - 10/12/24 0659 Shift 7354-1654 3726-2784 24 Hour Total 8223-3899 9201-0860 9732-6208 24 Hour Total INTAKE P.O. 4052 130 7245 P.O. 8684 980 2767 Boost (mL) - [facility] only 240 240 I.V.(mL/kg) 450(3.8) Volume (mL) (sodium chloride 0.9 % IV infusion) 450 Shift Total(mL/kg) 1380(11.5) 480(4) 2520(21.1) OUTPUT Urine(mL/kg/hr) 300(0.3) 400(0.4) 700(0.2) Urine 300 400 700 Urine Occurrence 2 x 4 x Stool Stool Occurrence 2 x 4 x 3 x 3 x Shift Total(mL/kg) 300(2.5) 400(3.3) 700(5.9) Weight (kg) 119.5 119.5 119.5 119.5 119.5 119.5 119.5 Physical Exam: Physical Exam Constitutional: General: He is not in acute distress. Appearance: Normal appearance. He is obese. HENT: Head: Normocephalic and atraumatic. Eyes: General: Scleral icterus present. Cardiovascular: Rate and Rhythm: Normal rate and regular rhythm. Heart sounds: Murmur (systolic, likely julien murmur in setting of high flow state with advanced liver disease) heard. Pulmonary: Effort: Pulmonary effort is normal. No respiratory distress. Breath sounds: Normal breath sounds. Abdominal: General: Bowel sounds are normal. There is no distension. Palpations: Abdomen is soft. Skin: General: Skin is warm and dry. Coloration: Skin is jaundiced. Neurological: General: No focal deficit present. Mental Status: He is alert and oriented to person, place, and time. Labs: Lab 10/07/24 1837 10/06/24 0104 TSH 0.81 0.84 Lab 10/11/24 0302 10/10/24 0523 10/09/24 0459 10/08/24 1752 10/08/24 0741 10/08/24 0536 10/07/24 0600 WBC 4.0 5.1 4.6 5.6 3.7* 3.2* 3.3* HEMOGLOBIN 7.7* 7.3* 8.0* 8.3* 7.1* 6.9* 7.4* HEMATOCRIT 21.2* 20.6* 21.8* 24.6* 20.0* 18.9* 21.5* PLATELETS 32* 39* 36* 39* 37* 34* 35* MEAN CORPUSCULAR VOLUME 100.5* 101.2* 100.5* 103.2* 103.1* 101.6* 104.1* INR 2.4* 2.1* 2.4* -- -- 2.4* 2.4* Lab 10/11/24 0302 10/10/24 0523 10/09/24 1305 10/09/24 0814 10/09/24 0459 10/08/24 0536 10/07/24 0600 SODIUM 134 135 134 134 134 135 132* POTASSIUM 3.6 3.6 3.7 3.4* 3.3* 3.2* 3.9 CHLORIDE 108 108 105 107 107 106 103 CO2 16* 17* 17* 17* 16* 17* 19* BUN 49* 53* 53* 54* 56* 61* 64* CREATININE 2.77* 2.85* 2.89* 3.04* 2.98* 3.10* 3.38* GLUCOSE 112* 113* 108* 124* 112* 106* 111* CALCIUM 8.9 9.0 9.3 9.0 9.0 9.0 9.1 PHOSPHORUS 3.5 3.3 3.4 3.5 3.5 4.0 4.2 MAGNESIUM 2.0 1.9 -- -- 1.8 1.9 1.7 No results for input(s): HDL , TRIG in the last 72 hours. Invalid input(s): CHOL , LDLCALC ] Cardiac work up: Last Cath: No results found for this or any previous visit. Last Stress test: No results found for this or any previous visit. Last Cardiac MRI test: No results found for this or any previous visit. Last Echocardiogram: No results found for this or any previous visit. EKG: Reviewed Telemetry reviewed [1] Allergies Allergen Reactions Adhesive Itching and Rash Tegaderm adhesive on Ivs, pt states its tolerable Duloxetine Other (See Comments) Became Manic * Bakari Wahl, [facility] - 10/10/2024 10:07 AM EDT Interventional Radiology Consult Note Date: 10/10/2024 Patient: Julien : 1985 Primary Care Provider: Enedina Mcguire NP Requesting Provider: Bushra Vanegas MD Chief Complaint: Altered mental staus Reason for Consult: Ascites IR Procedure Request Received and Reviewed. HPI: Julien is a 39 y.o. 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 Patient took prescribed lactulose and several watery bowel movements which improved his mental status initially but then he became confused again with struggle to generate sentences and complete thoughts. Of note, patient did just complete treatment for C.Diff with oral vancomycin. He does get paracenteses 2x/week with his last one being 10/03 with ~ 6000 ml removed. Cultures from OSH growing gram positives. IR consulted for diagnostic and thera peutic paracentesis. History: Past Medical History: Diagnosis Date Alcoholic cirrhosis of liver (CMS-HCC) Alcoholic hepatitis Esophageal varices (CMS-HCC) Hepatorenal syndrome (CMS-HCC) Hypertension Other hyperlipidemia 07/26/2024 Renal cell carcinoma (CMS-HCC) Thrombocytopenia (CMS-HCC) Thyroid disease History reviewed. No pertinent surgical history. History reviewed. No pertinent family history. Social Hx: Tobacco Use History[1] Social History Substance and Sexual Activity Drug Use Yes Types: Marijuana Social History Substance and Sexual Activity Alcohol Use Yes Comment: History of alcohol abuse, reports no use in 3 week- typically endorses use as 4 glasses ofwine a days Allergies: Allergies[2] Home Medications: Home Medications Medication Sig Taking? Last Dose ciprofloxacin HCl (CIPRO) 500 MG tablet Take 1 tablet (500 mg total) by mouth daily. Yes Past Week folic acid (FOLVITE) 1 MG tablet Take 1 tablet (1 mg total) by mouth daily. Yes Past Week lactulose (CHRONULAC) 10 gram/15 mL solution Take 30 mLs (20 g total) by mouth 3 times a day as needed (goal 2-3 bowel movements a day). Yes 10/05/2024 Morning levothyroxine (SYNTHROID) 75 MCG tablet Take 1 tablet (75 mcg total) by mouth every morning before breakfast. Yes 10/05/2024 pantoprazole (PROTONIX) 40 MG tablet Take 1 tablet (40 mg total) by mouth every morning before breakfast. Yes Past Week potassium chloride (KLOR-CON M20) 20 MEQ tablet Take 2 tablets (40 mEq total) by mouth daily. Yes Past Week rifAXIMin (XIFAXAN) 550 mg Tab tablet Take 1 tablet (550 mg total) by mouth 2 times a day. Yes 10/05/2024 Morning sodium bicarbonate 650 MG tablet Take 2 tablets (1,300 mg total) by mouth 3 times a day. Yes 10/05/2024 Morning thiamine HCl (VITAMIN B-1) 100 MG tablet Take 1 tablet (100 mg total) by mouth daily. Yes Past Week traMADoL (ULTRAM) 50 mg tablet Take 1 tablet (50 mg total) by mouth every 12 hours as needed for Pain (Pain). Yes Past Week ursodioL (ACTIGALL) 300 mg capsule Take 1 capsule (300 mg total) by mouth 2 times a day. Yes 10/05/2024 Morning zinc sulfate (ZINCATE) 50 mg zinc (220 mg) capsule Take 1 capsule (220 mg total) by mouth daily. Yes Past Week Current Medications: Scheduled Medications: cefTRIAXone (ROCEPHIN) IVPB, 2 g, Q24H [START ON 10/12/2024] ciprofloxacin HCl, 500 mg, Q24H folic acid, 1 mg, Daily 0900 heparin, 5,000 Units, 3 times per day lactulose, 20 g, TID levothyroxine, 75 mcg, QAM AC lidocaine-EPINEPHrine, , loratadine, 10 mg, Daily 0900 methocarbamoL, 500 mg, TID midodrine, 10 mg, TID pantoprazole, 40 mg, QAM AC rifAXIMin, 550 mg, BID sodium bicarbonate, 1,300 mg, TID sodium chloride 0.9 %, 250 mL, Once thiamine HCl, 100 mg, Daily 0900 ursodioL, 300 mg, BID zinc sulfate, 220 mg, Daily 0900 IV Meds: sodium chloride 0.9 % PRN Medications: diphenhydrAMINE-zinc acetate, , TID PRN lidocaine-EPINEPHrine, , metoprolol tartrate, 2.5 mg, Q5 Min PRN oxyCODONE, 2.5 mg, Q6H PRN Or oxyCODONE, 5 mg, Q6H PRN ROS: Negative General: Denies fever, chills or weakness Cardiovascular: Denies chest pain, chest pressure Respiratory: Denies shortness of breath, wheezing GI: Denies abdominal pain or n/v : Denies pain with urination or blood in urine Skin: Denies rashes or bruising Neurological: Denies headaches, dizziness Extremities: Denies swelling or numbness/tingling Psychiatric: Denies hallucinations and memory loss Vitals: Vitals: 10/10/24 0850 10/10/24 1030 10/10/24 1230 10/10/24 1245 BP: 102/55 114/58 94/41 105/51 BP Location: Right upper arm Patient Position: Lying BP Cuff Size: Regular Pulse: 93 94 93 91 Resp: 16 18 16 16 Temp: 98.1 ??F (36.7 ??C) 97.6 ??F (36.4 ??C) TempSrc: Oral Axillary SpO2: 99% 100% 100% 100% Weight: PE: Gen: Awake, alert, no apparent distress HEENT: Normocephalic, atraumatic, mucous membranes pink and moist Neck: Supple, symmetrical, trachea midline Resp: Respirations unlabored and even CVS: RRR ABD: Soft, non-tender : deferred EXT: Warm and well perfused NEURO: No focal deficits PSYCH: Appropriate affect Labs: Recent Labs 10/08/24 1752 10/09/24 04510/10/24 05 WBC 5.6 4.6 5.1 HGB 8.3* 8.0* 7.3* HCT 24.6* 21.8* 20.6* MCV 103.2* 100.5* 101.2* PLT 39* 36* 39* Recent Labs 10/09/24 0814 10/09/24 1305 10/10/24 0523 NA 134 134 135 K 3.4* 3.7 3.6 CL 107 105 108 CO2 17* 17* 17* PHOS 3.5 3.4 3.3 BUN 54* 53* 53* CREATININE 3.04* 2.89* 2.85* CALCIUM 9.0 9.3 9.0 Recent Labs 08/15/24 1035 08/16/24 0718 09/03/24 0529 09/04/24 0522 09/05/24 0724 10/08/24 0536 10/09/24 04510/10/24 0523 BILITOT -- < > 32.5* 25.5* < > 7.7* 9.0* 8.6* AST -- < > 73* 43* < > 34 38 40* ALT -- < > 45 30 < > 16 18 22 ALKPHOS -- < > 139* 75 < > 103 122 118 LIPASE 66 -- 40 40 -- -- -- -- < > = values in this interval not displayed. Recent Labs 10/08/24 0536 10/09/24 0459 10/09/24 0814 10/09/24 1305 10/10/24 0523 ALBUMIN 3.5 3.5 3.4* 3.4* < > 3.6 3.3* 3.3* BILIDIRECT 4.28* 4.60* -- -- 4.65* < > = values in this interval not displayed. Recent Labs 10/08/24 0536 10/09/24 0459 10/10/24 0523 INR 2.4* 2.4* 2.1* PROTIME 26.9* 26.5* 23.9* Imaging: No results found for this or any previous visit from the past 72 hours. No results found for this or any previous visit from the past 72 hours. I personally reviewed the relevant findings from the above imaging results. Medical Decision Making Assessment: Julien is a 39 y.o. male with a PMHx of cirrhosis decompensated by ascites requring frequent LVP whopresented to the hospital with altered mental status. IR consulted for diagnostic and therapeutic paracentesis. Plan: 1. Will proceed with ultrasound guided diagnostic and therapeutic paracentesis 2. Sedation Plan/Type: Local/Subcutaneous Lidocaine 1% with epi Consent: Consent obtained and in IR Please call with any questions. BAKARI WAHL CNP Vascular & Interventional Radiology 10/10/2024,1:54 PM [facility]: [phone]) [1] Social History Tobacco Use Smoking Status Former Types: Cigarettes Smokeless Tobacco Current [2] Allergies Allergen Reactions Adhesive Itching and Rash Tegaderm adhesive on Ivs, pt states its tolerable Duloxetine Other (See Comments) Became Manic * Olivia Latham RN - 10/08/2024 3:02 PM EDTAssociated Order(s): IP CONSULT TO PIV 18g 1.75in ultrasound guided peripheral access placed to left forearm. Patient informed that largerbore PIV may cause some discomfort but should never remain painful after insertion and to let Primary RN know if he has any further problems. Primary RN made aware. * Daria Garcia MD - 10/08/2024 9:48 AM EDTAssociated Order(s): IP CONSULT TO INFECTIOUS DISEASES [facility] DEPARTMENT OF INFECTIOUS DISEASE INITIAL NOTE Referring Physician: Fouzia Rene MD Consult Attending: Daria Garcia Patient: Julien Gilbert CSN: [id number] Reason for Consult: CC: Abx management History of Present Illness Julien Gilbert is a 39 y.o. male on hospital day 3. 39 y.o. 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 He his a poor historian due to HE. He was born and raised in [facility] . [facility]. 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 She was started on vanc and CTX and bld cx from 10/05 have been negative . Past Medical History Past Medical History: Diagnosis [...] Resource Strain: Low Risk (07/09/2024) Received from [facility] Overall Financial Resource Strain (CARDIA) Difficulty of Paying Living Expenses: Not hard at all Food Insecurity: No Food Insecurity (10/06/2024) Hunger Vital Sign Worried About Running Out of Food in the Last Year: Never true Ran Out of Food in the Last Year: Never true Transportation Needs: No Transportation Needs (10/06/2024) PRAPARE - Transportation Lack of Transportation (Medical): No Lack of Transportation (Non-Medical): No Physical Activity: Unknown (07/14/2024) Received from [facility] Exercise Vital Sign Days of Exercise per Week: Patient unable to answer Minutes of Exercise per Session: Not on file Stress: Patient Unable To Answer (07/14/2024) Received from [facility] [place] [employer] Occup[employer] - Occupational Stress Questionnaire Feeling of Stress : Patient unable to answer Social Connections: Patient Unable To Answer (07/14/2024) Received from [facility] Social Connection and Isolation Panel [NHANES] Frequency of Communication with Friends and Family: Patient unable to answer Frequency of Social Gatherings with Friends and Family: Patient unable to answer Attends Jainism Services: Patient unable to answer Active Member of Clubs or Organizations: Patient unable to answer Attends Club or Organization Meetings: Patient unable to answer Marital Status: Patient unable to answer Intimate Partner Violence: Not At Risk (10/06/2024) Humiliation, Afraid, Rape, and Kick questionnaire Fear of Current or Ex-Partner: No Emotionally Abused: No Physically Abused: No Sexually Abused: No Housing Stability: Low Risk (10/06/2024) Housing Stability Vital Sign Unable to Pay for Housing in the Last Year: No Number of Times Moved in the Last Year: 0 Homeless in the Last Year: No Medications Allergies: Allergies[1] Home Meds: Current Discharge Medication List CONTINUE these medications which have NOT CHANGED Details ciprofloxacin HCl (CIPRO) 500 MG tablet Take 1 tablet (500 mg total) by mouth daily. Qty: 30 tablet, Refills: 0 folic acid (FOLVITE) 1 MG tablet Take 1 tablet (1 mg total) by mouth daily. lactulose (CHRONULAC) 10 gram/15 mL solution Take 30 mLs (20 g total) by mouth 3 times a day as needed (goal 2-3 bowel movements a day). Qty: 2838 mL, Refills: 0 levothyroxine (SYNTHROID) 75 MCG tablet Take 1 tablet (75 mcg total) by mouth every morning before breakfast. pantoprazole (PROTONIX) 40 MG tablet Take 1 tablet (40 mg total) by mouth every morning before breakfast. potassium chloride (KLOR-CON M20) 20 MEQ tablet Take 2 tablets (40 mEq total) by mouth daily. Qty: 60 tablet, Refills: 2 Associated Diagnoses: Hypokalemia rifAXIMin (XIFAXAN) 550 mg Tab tablet Take 1 tablet (550 mg total) by mouth 2 times a day. Qty: 60 tablet, Refills: 0 Comments: [facility] [place] [id number] sodium bicarbonate 650 MG tablet Take 2 tablets (1,300 mg total) by mouth 3 times a day. Qty: 90 tablet, Refills: 0 thiamine HCl (VITAMIN B-1) 100 MG tablet Take 1 tablet (100 mg total) by mouth daily. Qty: 30 tablet, Refills: 0 traMADoL (ULTRAM) 50 mg tablet Take 1 tablet (50 mg total) by mouth every 12 hours as needed for Pain (Pain). ursodioL (ACTIGALL) 300 mg capsule Take 1 capsule (300 mg total) by mouth 2 times a day. Qty: 60 capsule, Refills: 0 zinc sulfate (ZINCATE) 50 mg zinc (220 mg) capsule Take 1 capsule (220 mg total) by mouth daily. Qty: 60 capsule, Refills: 0 Inpatient Meds: Scheduled: cefTRIAXone (ROCEPHIN) IVPB 2 g Intravenous Q24H folic acid 1 mg Oral Daily 0900 heparin 5,000 Units Subcutaneous 3 times per day lactulose 20 g Oral TID levothyroxine 75 mcg Oral QAM AC methocarbamoL 500 mg Oral TID pantoprazole 40 mg Oral QAM AC potassium chloride 40 mEq Oral Once rifAXIMin 550 mg Oral BID sodium bicarbonate 1,300 mg Oral TID thiamine HCl 100 mg Oral Daily 0900 ursodioL 300 mg Oral BID vancomycin 1,000 mg Intravenous Once zinc sulfate 220 mg Oral Daily 0900 Continuous: sodium chloride 0.9 % PRN:oxyCODONE OR oxyCODONE, vancomycin intermittent/pulse dosing PLACEHOLDER ORDER Review of Systems Pertinent items are noted in HPI. Vital Signs Temp: [97.4 ??F (36.3 ??C)-98.2 ??F (36.8 ??C)] 98.2 ??F (36.8 ??C) Heart Rate: [86-100] 98 Resp: [16-18] 16 BP: (107-124)/(57-68) 115/59 Intake/Output Summary (Last 24 hours) at 10/08/2024 0946 Last data filed at 10/08/2024 0549 Gross per 24 hour Intake 1010 ml Output -- Net 1010 ml Physical Exam BP 115/59 (BP Location: Right upper arm, Patient Position: Lying) Pulse 98 Temp 98.2 ??F (36.8 ??C) (Axillary) Resp 16 SpO2 100% General Appearance: Alert, cooperative, no distress, appears stated age Back: Symmetric, no curvature, ROM normal, no CVA tenderness Lungs: Clear to auscultation bilaterally, respirations unlabored Chest wall: No tenderness or deformity Heart: Regular rate and rhythm, S1 and S2 normal, no murmur, rub or gallop Abdomen: Soft, non-tender, bowel sounds active all four quadrants, no masses, no organomegaly Neurologic: CNII-XII intact. Normal strength, sensation and reflexes throughout Laboratory Data Lab name 10/06/24 0737 10/07/24 0600 10/08/24 0536 10/08/24 0741 WBC 5.6 3.3* 3.2* 3.7* HEMOGLOBIN 9.0* 7.4* 6.9* 7.1* HEMATOCRIT 25.3* 21.5* 18.9* 20.0* MEAN CORPUSCULAR VOLUME 101.2* 104.1* 101.6* 103.1* PLATELETS 52* 35* 34* 37* Lab name 09/09/24 0612 09/16/24 1220 10/06/24 0401 10/06/24 0737 10/07/24 0600 10/08/24 0536 SODIUM 135 < > 129* 129* 132* 135 POTASSIUM 3.5 < > 4.7 4.4 3.9 3.2* CHLORIDE 110 < > 100 100 103 106 CO2 15* < > 16* 18* 19* 17* BUN 30* < > 61* 62* 64* 61* CREATININE 2.47* < > 3.49* 3.40* 3.38* 3.10* GLUCOSE 129* < > 104* 98 111* 106* CALCIUM 8.4* < > 9.2 9.5 9.1 9.0 MAGNESIUM 1.7 -- 1.8 -- 1.7 1.9 PHOSPHORUS 2.3 -- 5.3* -- 4.2 4.0 < > = values in this interval not displayed. Lab name 10/06/24 0104 10/06/24 0401 10/07/24 0600 10/08/24 0536 INR 1.9* 1.8* 2.4* 2.4* PROTHROMBIN TIME 22.8* 21.3* 26.9* 26.9* Lab name 09/25/24 1155 10/06/24 0104 10/06/24 0401 10/06/24 0737 10/07/24 0600 10/08/24 0536 ALT 29 29 < > 31 29 18 16 AST 57* 57* < > 60* 57* 39 34 ALK PHOS 171* 171* < > 162* 158* 98 103 BILIRUBIN TOTAL 20.2* 20.2* < > 14.7* 14.3* 9.7* 7.7* BILIRUBIN DIRECT 13.33* -- 7.08* -- 5.21* 4.28* ALBUMIN 3.5 3.5 < > 3.4* 3.6 3.6 3.5 ALBUMINKID -- -- 3.4* -- 3.6 3.5 < > = values in this interval not displayed. Lab name 07/26/24 0038 08/13/24 0451 09/03/24 1028 10/06/24 1151 COLOR, URINE Brown* Yellow Yellow Yellow CLARITY Cloudy* Clear Cloudy* Clear PROTEIN UA 30 mg/dL* Negative Trace* Negative PH UA 6.5 6.0 6.5 6.0 SPECIFIC GRAVITY, URINE 1.015 1.011 >1.035* 1.014 GLUCOSE UA 100 mg/dL* Negative Negative Negative KETONES UA Negative Negative Negative Negative BLOOD UA Negative Negative Negative Negative LEUKOCYTES UA Negative Negative Negative Negative NITRITE UA Negative Negative Negative Negative BILIRUBIN UA Large* Small* Small* Negative UROBILINOGEN UA 0.2 E.U./dL <2.0 <2.0 <2.0 RBC UA -- 0-2* 1 -- WBC UA -- 0-3 1 -- BACTERIA Rare* -- Occasional* -- Specialty labs: Lab name 10/06/24 0104 10/07/24 1837 AMMONIA 77 -- TSH 0.84 0.81 Lab name 10/08/24 0536 10/08/24 0741 HEMOGLOBIN 6.9* 7.1* HEMATOCRIT 18.9* 20.0* MEAN CORPUSCULAR VOLUME 101.6* 103.1* PLATELETS 34* 37* LD 102* -- RETICULOCYTE COUNT PCT -- 1.35 Lab name 10/08/24 0536 10/08/24 0741 CREATININE 3.10* -- BUN 61* -- POTASSIUM 3.2* -- CALCIUM 9.0 -- PHOSPHORUS 4.0 -- HEMOGLOBIN 6.9* 7.1* HEMATOCRIT 18.9* 20.0* Microbiology results: Lab Results Component Value Date ISO1 No Growth To Date 10/06/2024 ISO1 No Growth To Date 10/06/2024 No results found for: AFBSMEAR , PPD Diagnostic Studies Assessment & Plan Julien Gilbert is a 39 y.o. male Medical problems being addressed in this encounter include the following: Active Hospital Problems Diagnosis Date Noted Metabolic encephalopathy [G93.41] 07/26/2024 Neck pain with history of cervical spinal surgery [M54.2, Z98.890] 10/07/2024 Aphasia [R47.01] 10/06/2024 SBP (spontaneous bacterial peritonitis) ([facility]) [K65.2] 09/08/2024 Metabolic acidosis with normal anion gap and bicarbonate losses [E87.20] 09/03/2024 CKD (chronic kidney disease) stage 4, GFR 15-29 ml/min ([facility]) [N18.4] 09/03/2024 GERD (gastroesophageal reflux disease) [K21.9] 09/03/2024 Renal mass, left [N28.89] 08/18/2024 Thrombocytopenia ([facility]) [D69.6] Decompensated cirrhosis ([facility]) [K72.90, K74.60] 07/25/2024 NADIYA (acute kidney injury) ([facility]) [N17.9] 07/25/2024 Resolved Hospital Problems No resolved problems to display. 39 y.o. 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 Signed: Daria Garcia MD 10/08/2024, 9:46 AM [phone] [1] Allergies Allergen Reactions Adhesive Itching and Rash Tegaderm adhesive on Ivs, pt states its tolerable Duloxetine Other (See Comments) Became Manic * Los Broussard MD - 10/08/2024 9:43 AM EDTAssociated Order(s): IP CONSULT TO ANESTHESIOLOGY Images from the original note were not included. ANESTHESIOLOGY CONSULTATION AND PRE-OPERATIVE HISTORY AND PHYSICAL Date of Surgery: Pending Surgeon: Diandra Domínguez Diagnosis: ESLD Procedure: Listing for dual OLT and OKT Chief complaint: Julien Gilbert is a 39 y.o. year old male seen on 3 at the request of Dr. Sang boltonender an opinion on perioperative risk optimization and to coordinate medical care as necessary related to the above procedure. History of Present Illness: Julien Gilbert is an 39 y.o. male seen on hospital day 3. Pt admitted on 10/05/2024 with a primary diagnosis of cirrhosis due to alcohol decompensated by esophageal varices, ascites, hepatic encephalopathy, NADIYA on CKD vs hepatorenal syndrome, coagulopathy with INR 2.4. Current MELD 38. He also has anemia with Hb 7.4, thrombocytopenia with plt 35K, hypokalemia with K 3.2, NADIYA with Cr 3.1 Acutely he is noted to have hepatic encephalopathy and SBP with gram negative rods from another hospital. He is currently on emperic antibiotics. Past Medical History: Past Medical History: Diagnosis Date Alcoholic cirrhosis of liver (CMS-HCC) Alcoholic hepatitis Esophageal varices (CMS-HCC) Hepatorenal syndrome (CMS-HCC) Hypertension Other hyperlipidemia 07/26/2024 Renal cell carcinoma (CMS-HCC) Thrombocytopenia (CMS-HCC) Thyroid disease Past Surgical History: History reviewed. No pertinent surgical history. Social History: Social History Socioeconomic History Marital status: Spouse [...] Resource Strain: Low Risk (07/09/2024) Received from [facility] Overall Financial Resource Strain (CARDIA) Difficulty of Paying Living Expenses: Not hard at all Food Insecurity: No Food Insecurity (10/06/2024) Hunger Vital Sign Worried About Running Out of Food in the Last Year: Never true Ran Out of Food in the Last Year: Never true Transportation Needs: No Transportation Needs (10/06/2024) PRAPARE - Transportation Lack of Transportation (Medical): No Lack of Transportation (Non-Medical): No Physical Activity: Unknown (07/14/2024) Received from [facility] Exercise Vital Sign Days of Exercise per Week: Patient unable to answer Minutes of Exercise per Session: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 g Intravenous Q24H folic acid 1 mg Oral Daily 0900 heparin 5,000 Units Subcutaneous 3 times per day lactulose 20 g Oral TID levothyroxine 75 mcg Oral QAM AC pantoprazole 40 mg Oral QAM AC rifAXIMin 550 mg Oral BID sodium bicarbonate 1,300 mg Oral TID thiamine HCl 100 mg Oral Daily 0900 ursodioL 300 mg Oral BID zinc sulfate 220 mg Oral Daily 0900 Continuous Infusions: PRN medications: albumin human 25% Physical Exam Patient Vitals for the past 4 hrs: BP Temp Temp src Pulse Resp SpO2 10/06/24 1110 140/74 -- -- 101 19 100 % 10/06/24 0927 -- -- -- 95 -- 100 % 10/06/24 0851 128/58 97.4 ??F (36.3 ??C) Axillary 95 18 97 % 10/06/24 0731 119/62 97.6 ??F (36.4 ??C) Oral 98 16 100 % Wt Readings from Last 3 Encounters: 09/05/24 (!) 262 lb 9.6 oz (119.1 kg) 09/02/24 (!) 258 lb (117 kg) 08/17/24 (!) 242 lb 11.2 oz (110.1 kg) Intake/Output Summary (Last 24 hours) at 10/06/2024 1128 Last data filed at 10/06/2024 0600 Gross per 24 hour Intake 60 ml Output -- Net 60 ml General appearance: NAD Lungs: No RD, CTA b/l Heart: RRR Abdomen: distended, non tender Extremities: mild leg edema Skin: No rashes/lesions noted, no skin tears Psych: good eye contact, normal affect Laboratory Data and Imaging Recent Labs 10/06/24 0104 10/06/24 0401 10/06/24 0737 WBC 7.9 7.6 5.6 HGB 9.9* 10.1* 9.0* HCT 28.0* 28.4* 25.3* MCV 101.5* 102.4* 101.2* PLT 58* 53* 52* Recent Labs 10/06/24 0104 10/06/24 0401 10/06/24 0737 NA 127* 129* 129* K 4.5 4.7 4.4 CL 99 100 100 CO2 18* 16* 18* BUN 59* 61* 62* CREATININE 3.54* 3.49* 3.40* GLUCOSE 116* 104* 98 CALCIUM 9.0 9.2 9.5 MG -- 1.8 -- PHOS -- 5.3* -- ANIONGAP 10 13 11 ALBUMIN 3.3* 3.4* 3.4* 3.6 Recent Labs 10/06/24 0104 10/06/24 0401 10/06/24 0737 CALCIUM 9.0 9.2 9.5 PHOS -- 5.3* -- No results found for: IRON , TIBC , FERRITIN No results found for: [id number] , FOLATE Lab Results Component Value Date [...] CRUR No results found for: MICROALBUR , [id number] In addition to the above an extensive amount of complex data in the patients lab and chart were reviewed. Diagnostic Imaging Reviewed in EMR. This note was copied forward from previously composed documentation. I have reviewed and updated the history, review of systems, physical exam, data, assessment and plan of the note so that it reflects the evaluation and management of the patient on 10/06/2024. [1] Allergies Allergen Reactions Adhesive Itching and Rash Tegaderm adhesive on Ivs, pt states its tolerable Duloxetine Other (See Comments) Became Manic Cosigned by Colten Huertas MD at 10/06/2024 4:08 PM EDT Associated attestation - Colten Huertas MD - 10/06/2024 4:08 PM EDT .ATTESTATION I saw Mr/Ms Julien Gilbert with renal fellow / consult team I went through all the events leading to hospitalization, primary teams notes, pertinent laboratorywork up, history and physical examination. I agree with the documentation and plan mentioned in thenote by the fellow. I was present at the time of exam and history taking. DOS 10/06/2024 Julien Gilbert is a 39 y.o. male with has a past medical history of Alcoholic cirrhosis of liver (CMS-HCC), Alcoholic hepatitis, Esophageal varices (CMS-HCC), Hepatorenal syndrome (CMS-HCC), Hypertension, Other hyperlipidemia (07/26/2024), Renal cell carcinoma (CMS-HCC), Thrombocytopenia (CMS-HCC), and Thyroid disease. who presents for NADIYA My additional comments are as follow: Patient was seen today in his room Patient's bedside Admitted with NADIYA Unclear what his baseline serum creatinine is however it seems that for the past few months it has been around 2 however at that time he was admitted to the hospital because of NADIYA Has underlying end-stage liver disease decompensated cirrhosis Prior history of left kidney cancer which was ablated Now comes to the hospital because of altered mental status consistent with hepatic encephalopathy Worsening kidney function No fever FOCUSED PHYSICAL EXAM Vitals: 10/06/24 1514 BP: 105/60 Pulse: 90 Resp: 16 Temp: 98.5 ??F (36.9 ??C) SpO2: 100% Focused clinical examination was conducted today Patient is clinically euvolemic 1+ pedal edema Chest sounds clear Heart sounds are normal Gross neurological system exam unremarkable Abdominal system examination no tenderness no organomegaly PERTINENT LABS Anemia Lab Results Component Value Date WBC 5.6 10/06/2024 HGB 9.0 (L) 10/06/2024 HCT 25.3 (L) 10/06/2024 MCV 101.2 (H) 10/06/2024 PLT 52 (L) 10/06/2024 No results found for: IRON , TIBC , FERRITIN Acidosis/Electrolytes Lab Results Component Value Date CREATININE 3.40 (H) 10/06/2024 BUN 62 (H) 10/06/2024 NA 129 (L) 10/06/2024 K 4.4 10/06/2024 CL 100 10/06/2024 CO2 18 (L) 10/06/2024 CKD MBD Lab Results Component Value Date CALCIUM 9.5 10/06/2024 PHOS 5.3 (H) 10/06/2024 No results found for: [id number] PLAN Patient seen labs reviewed Unclear baseline serum creat Recent episode of acute kidney injury requiring hospitalization Now has [id number] episode of NADIYA Underwent paracentesis 3 days ago Serum creatinine now mid threes Prior history of kidney cancer which was treated by have a lesion in the left kidney CT brain no concerns Normal AFP levels Okay to consider IV albumin challenge for 3 days Monitor renal panel Plan discussed with patient and family Plan also discussed with the primary team Colten Huertas MD, KISHOR LIN FNKF folded cloth taper Div. of Nephrology [facility] E-mail: [email or web address] * Jerad Hughes MD - 10/06/2024 9:28 AM EDTAssociated Order(s): IP CONSULT TO LIVER [facility] HEPATOLOGY CONSULT NOTE Name: Julien Gilbert CSN: [id number] Consulted by: Angie Blanchard MD Reason for Consult: Decompensated Cirrhosis History of Present Illness: Julien Gilbert is a 39 y.o. with history of decompensated EtOH cirrhosis (complicated by EV, HRS, ascites, HE), HTN, and CKD. Patient admitted as transfer from [facility] ED with confusion and lethargy. Diagnostic paracentesis obtained in the ED, results not yet communicated to . Was started on CTX empirically. Upon arrival here - Vitals BP 132/69, HR 98, afebrile. - VBG pH 7.21, pCO2 18 , bicarb 16 - CBC: Hb 9.9 (at baseline), plt 58, WBC 7.9 - Renal Cr. 3.54 (baseline ~ 3.5), Na 127, K 4.5 - Liver TB 14.8 , AST 61, ALT 33, aLP 174 - Lactate 1.2 - INR 1.9 Patient was recently admitted to last month with abdominal pain, found to have SBP. Treated withCTX and transitioned to cipro for secondary prophylaxis at the time of DC. Had AKU that admission that improved with albumin. Also C Diff PCR positive, toxin negative but treated with 10 days of vancomycin due to diarrhea. Patient was recently referred to [facility] for liver transplant evaluation. Patient was evaluated by transplant social sciences professor on 09/25/2024 and it was determined that patient will need to complete 12 weeksof CD treatment. Patient has completed ~8 weeks of CD treatment thus far. Currently follow in fellows clinic with Dr. Peterson. Review of Systems As per HPI. Otherwise all systems reviewed and negative. Past Medical History: Diagnosis Date Alcoholic cirrhosis [...] days Allergies[1] Scheduled Meds: albumin human 25% cefTRIAXone (ROCEPHIN) IVPB 2 g Intravenous Q24H folic acid 1 mg Oral Daily 0900 heparin 5,000 Units Subcutaneous 3 times per day lactulose 20 g Oral TID levothyroxine 75 mcg Oral QAM AC pantoprazole 40 mg Oral QAM AC rifAXIMin 550 mg Oral BID sodium bicarbonate 1,300 mg Oral TID thiamine HCl 100 mg Oral Daily 0900 ursodioL 300 mg Oral BID zinc sulfate 220 mg Oral Daily 0900 Continuous Infusions: PRN Meds: albumin human 25% Prior to Admission Meds: Home Medications Medication Sig Taking? Last Dose ciprofloxacin HCl (CIPRO) 500 MG tablet Take 1 tablet (500 mg total) by mouth daily. Yes 10/04/2024 folic acid (FOLVITE) 1 MG tablet Take 1 tablet (1 mg total) by mouth daily. Yes 10/04/2024 lactulose (CHRONULAC) 10 gram/15 mL solution Take 30 mLs (20 g total) by mouth 3 times a day as needed (goal 2-3 bowel movements a day). Yes 10/05/2024 Morning levothyroxine (SYNTHROID) 75 MCG tablet Take 1 tablet (75 mcg total) by mouth every morning before breakfast. Yes 10/05/2024 pantoprazole (PROTONIX) 40 MG tablet Take 1 tablet (40 mg total) by mouth every morning before breakfast. Yes 10/04/2024 potassium chloride (KLOR-CON M20) 20 MEQ tablet Take 2 tablets (40 mEq total) by mouth daily. Yes 10/04/2024 rifAXIMin (XIFAXAN) 550 mg Tab tablet Take 1 tablet (550 mg total) by mouth 2 times a day. Yes 10/05/2024 Morning sodium bicarbonate 650 MG tablet Take 2 tablets (1,300 mg total) by mouth 3 times a day. Yes 10/05/2024 Morning thiamine HCl (VITAMIN B-1) 100 MG tablet Take 1 tablet (100 mg total) by mouth daily. Yes 10/04/2024 traMADoL (ULTRAM) 50 mg tablet Take 1 tablet (50 mg total) by mouth every 12 hours as needed for Pain (Pain). Yes 10/04/2024 ursodioL (ACTIGALL) 300 mg capsule Take 1 capsule (300 mg total) by mouth 2 times a day. Yes 10/05/2024 Morning zinc sulfate (ZINCATE) 50 mg zinc (220 mg) capsule Take 1 capsule (220 mg total) by mouth daily. Yes 10/04/2024 Vitals: Temp: [97.4 ??F (36.3 ??C)-97.6 ??F (36.4 ??C)] 97.4 ??F (36.3 ??C) Heart Rate: [95-98] 95 Resp: [16-18] 18 BP: (119-132)/(58-69) 128/58 Intake/Output Summary (Last 24 hours) at 10/06/2024 0928 Last data filed at 10/06/2024 0600 Gross per 24 hour Intake 60 ml Output -- Net 60 ml Physical Exam Gen: No acute distress. Resting in bed. HEENT:. + scleral icterus. CV: Regular rate and rhythm. Lungs:Comfortable on RA Abdomen: Soft, nontender, distended Skin: jaundiced Neuro: A&Ox3. No focal deficits. No asterixis. Psych: Appropriate mood and affect. Laboratory: Lab Results Component Value Date WBC 5.6 10/06/2024 HGB 9.0 (L) 10/06/2024 HCT 25.3 (L) 10/06/2024 MCV 101.2 (H) 10/06/2024 PLT 52 (L) 10/06/2024 Lab Results Component Value Date NA 129 (L) 10/06/2024 K 4.4 10/06/2024 CL 100 10/06/2024 CO2 18 (L) 10/06/2024 BUN 62 (H) 10/06/2024 CREATININE 3.40 (H) 10/06/2024 GLUCOSE 98 10/06/2024 CALCIUM 9.5 10/06/2024 PHOS 5.3 (H) 10/06/2024 Lab Results Component Value Date AST 57 (H) 10/06/2024 ALT 29 10/06/2024 BILITOT 14.3 (H) 10/06/2024 BILIDIRECT 7.08 (H) 10/06/2024 PROT 5.6 (L) 10/06/2024 ALBUMIN 3.6 10/06/2024 ALKPHOS 158 (H) 10/06/2024 Lab Results Component Value Date INR 1.8 (H) 10/06/2024 Lab Results Component Value Date HEPAIGM Nonreactive 10/06/2024 HEPBIGM Nonreactive 09/03/2024 No results found for: JOHN No results found for: SMOOTHMUSCAB No results found for: AFP No results found for: CEA No results found for: CA125 MELD 3.0: 37 at 10/06/2024 7:37 AM Calculated from: Serum Creatinine: 3.4 mg/dL (Using max of 3 mg/dL) at 10/06/2024 7:37 AM Serum Sodium: 129 mmol/L at 10/06/2024 7:37 AM Total Bilirubin: 14.3 mg/dL at 10/06/2024 7:37 AM Serum Albumin: 3.6 g/dL (Using max of 3.5 g/dL) at 10/06/2024 7:37 AM INR(ratio): 1.8 at 10/06/2024 4:01 AM Age at listing (hypothetical): 39 years Sex: Male at 10/06/2024 7:37 AM Microbiology: Lab Results Component Value Date LABGRAM Cytospin Results: 09/09/2024 LABGRAM Polymorphonuclear Leukocytes Seen; 09/09/2024 LABGRAM No Organisms Seen; 09/09/2024 Images: Assessment/Plan: Principal Problem: Decompensated cirrhosis (CMS-HCC) Active Problems: NADIYA (acute kidney injury) (CMS-HCC) Renal mass, left Metabolic acidosis with normal anion gap and bicarbonate losses This is a 39 year old male admitted with fluctuating mentation, lethargy. On the two occasions I spoke with him, he was A&O x4, but family at bedside describe significant fluctuation in mental status. Family feel this presentation is different than prior admissions for HE. Possible this represents recurrent HE, although some evidence against this. Ammonia normal here, having adequate Bms, no asterixis. Possible lethargy, confusion related to uremia in the setting of his NADIYA. Recommend complete infectious work up to rule out other precipitants of toxic/ metabolic encephalopathy. Patient with history of HCC s/p ablation. Reportedly outside imaging with new kidney lesion as wellas new lesion in the liver. Unable to view these images here. # encephalopathy # history of HE - blood and urine cultures - enteric pathogen panel/ c diff - awaiting results of diagnostic paracentesis - Liver US with doppler - peth, urine tox - continue lactulose, rifaximin, zinc # NADIYA # Diarrhea - Agree with nephrology consult - obtain urine/ serum Na and osms - Give albumin 100g now # Decompensated EtOH Cirrhosis - HE: continue lactulose, rifaximin, zinc - Ascites: Continue prn paracentesis SBP: awaiting results from diagnostic para at outside ED. Continue CXT empirically. If ascites negative for SBP, resume cipro as secondary prophylaxis. - Varices- history of bleeding Evs, s/p banding. EGD 07/29/2022 which showed grade 1 and 2 varices, no active bleeding. . Not BB tolerant. Hb at baseline this admission w/o evidence of GIB. - HCC: Reported new lesion in liver at OSH. Would consider triple phase CT vs MRI to assess. Pleaseobtain AFP. - Transplant: patient has completed 8/12 weeks CD treatment required to be considered for transplant. Plan to be discussed with Dr. Rosales, recommendations final after attending attestation. JERAD HUGHES MD PGY-5 10/06/2024, 9:28 AM [1] Allergies Allergen Reactions Adhesive Itching and Rash Tegaderm adhesive on Ivs, pt states its tolerable Duloxetine Other (See Comments) Became Manic Cosigned by Natalia Rosales MD at 10/06/2024 4:58 PM EDT Associated attestation - Natalia Rosales MD - 10/06/2024 4:58 PM EDT I saw and examined the patient. I discussed with the resident or fellow and agree with Dr. Hughes's findings and plan as documented in the note. Mr. Gilbret is a 39 yo M with alcohol cirrhosis d/b esoph varices, ascites, SBP and HE, admitted with change in mental status and NADIYA on admission. Completed imaging and diagnostic tap at OSH- results NA at this time. Agree with iv albumin, ceftriaxone, lactulose. Mental status improving- answering all questions appropriately. Per , he has had intermittent episodes of confusion, different than his previous episodes of HE. CT head this AM- unremarkable. Obtain results of para and imaging from OSH. Hepatology team to follow tomorrow. Natalia Rosales MD Professor Division of Digestive Diseases documented in this encounter Nursing Notes * Zuleima Cheney RN - 10/17/2024 10:13 AM EDT Patients discharged home with medications from the discharge pharmacy. Discharge instructions givenalong with his AVS and patient verbalize understanding. Transported via wheelchair to the [facility] to bepicked up for a lyft. 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 Bedside report received from poultry hatchery laborer, RN. Pt placed on telemetry, serial vital signs set up. Access site: RRA. Site is soft, no bleeding/hematoma, [address] Sheath removed in poultry hatchery laborer at 1402, TR band placed to site with 14 ml airinstilled to obtain hemostasis. RUE is warm, natural color, PT pulse 1, DP pulse 1, radial pulse 2.Pt A&Ox3, NSR per tele, VSS. Denies and pain/shortness of breath. Pt instructed on plan of care; bedrest x 2 hours, frequent site monitoring, & continuous telemetry and vitals. Pt educated on HOB < 30 degrees, keeping right upper extremity straight, no bending or lifting. Also encouraged pt to call RN immediately with any new or increased pain, shortness of breath, bleeding, numbness/tingling, or swelling. Given menu to order and snack/drink. Pt verbalized understanding. Call light placed within reach. Denies any needs/concerns at this time. Will monitor closely. Dylan Dong RN * Jes Bowman RN - 10/10/2024 10:54 PM EDT 1929: Assumed care of patient. AxOx4. Lungs diminished on room air. Contact plus precautions in place. Patient able to ambulate to bathroom independently. Nonskid footwear on, bed locked and in lowest position and call light in reach. 0: Patient in 8/10 abdominal pain. PRN Oxy given. * Faraz Ramos RN - 10/10/2024 2:52 PM EDT Patient seen for inpatient paracentesis. Patient has 8 liters of fluid removed. Report called to Jodi on 8E. Need for Albumin replacement will be determined by inpatient care team. * Minh Torres RN - 10/10/2024 12:49 AM EDT Informed patient that they were identified as a high fall risk patient and educated on the importance of a bed/chair alarm. Having an alarm placed helps to notify staff to come to room to check on patient when alerting. Patient was educated on risk for fall with possible injury and verbalize understanding but continues to refuse alarm. * Gill Le RN - 10/09/2024 4:07 PM EDT Called report to ЮЛИЯ Lazar. Patient transported to Floor with 2 RNs. Patient is alert and oriented. Resp. Easy REAL. In NAD. * Rebekah Davalos RN - 10/08/2024 2:46 PM EDT 1307-called ultrasound IV nurse at this time as patient needs a #18 in room [address] Ultrasound nurse stated I placed this last night, I stated its out. She asked how, I stated the nightshift nurse took it out because the patient stated it was hurting extremely bad. She stated, wellits an #18 it is gonna hurt, then said ok and call was ended. Patient verbally to this RN, that he made the nightshift RN take the IV out because it was hurting very bad and he could not take it. * Krista Bernard RN - 10/07/2024 11:04 PM EDT IV in the left, anterior forearm was removed at the patient's request. He states, it's killing meand I can't stand this all night . I reminded him that he needs it for CT of the abdomen tomorrow, he stated, they can just start another one in the morning. The IV was UGPIV that was started at the beginning of the shift in preparation of the CT tomorrow. Charge nurse, Soco is aware. * Krista Bernard RN - 10/07/2024 11:00 PM EDT Urine specimen sent for urine electrolytes and UDS confirmation. Stool specimen sent for O&P/Giardia/enteric pathogens. Tubes for specimens were verified with Quinten in micro and he sent the containers up to me for the stool specimens * Krista Bernard RN - 10/07/2024 3:53 AM EDT Patient still with c/o posterior neck pain from previous C3-C6 fusion, Dr Ortiz was contacted and ordered Robaxin 500mg as a SAADIA Pt was also ordered a vanilla dietary supplement TID as he states, I just have to eat when I can when I don't have all the fluid in my belly He is awake and hungry now, sack lunch was provided at his request. * Anjelica Day RN - 10/05/2024 11:21 PM EDT Pt arrived with and admitted into [facility] from [facility] with AMS. Merlene paged to the bedside at this time. documented in this encounter Miscellaneous Notes * Plan of Care - Inocente Morales DO - 10/17/2024 10:00 AM EDT Brief Psychiatry Plan of Care Note: - Was planning to see pt today to discuss change of sertraline to fluoxetine. Pt seen walking in the hallway to the VIOSOing machine. Pt reports he's going home today and is aware of the medication change. Advised pt we made the switch due to his liver function. No other questions or concerns expressed. * Plan of Care - Soco Milton RN - 10/17/2024 12:49 AM EDT Problem: High Fall Risk Precautions [...] policy, and non-skid footwear provided. Outcome: Progressing Problem: Patient will remain free of falls Goal: [employer] Fall Precautions Outcome: Progressing Problem: Daily Care Goal: Daily care needs are met Description: Assess and monitor ability to perform self care and identify potential discharge needs. Outcome: Progressing * Care Coordination - Kandy Fuentes - 10/16/2024 11:[address] [facility] Case Management/Social Work Department Progress Note Patient Information Patient Name: Julien Glibert Hospital day: 11 Inpatient/Observation: Inpatient Level of Care: blue Admit date: 10/05/2024 Admission diagnosis: AMS PMH: has a past medical history of Alcoholic cirrhosis of liver (CMS-HCC), Esophageal varices (CMS-HCC), Hepatorenal syndrome (CMS-HCC), Hypertension, Other hyperlipidemia (07/26/2024), Renal cell carcinoma (CMS-HCC), Thrombocytopenia (CMS-HCC), and Thyroid disease. PCP: Enedina Mcguire NP Home Pharmacy: [facility] [address] [place], [place] - [address] [address] [facility] [address] [place] [id number] Medical Insurance Coverage: Payor: [facility] / Plan: [facility] / Product Type: *No Producttype* / Other Pertinent Information RN/CM received update from team and completed chart review. Pt is not medically ready for discharge. Nephrology to see today. Here for pre-transplant work up. Discharge Plan Anticipated discharge plan: home Anticipated discharge date: 10/17/24 CM/SW will continue to follow and remain available for discharge planning needs. Kandy BAE RN * Plan of Care - Anu Wolff RN - 10/16/2024 8:34 AM EDT Problem: High Fall Risk Precautions Goal: [place] Risk Precautions Outcome: Progressing Problem: Chronic Pain Description: Patient's pain progressing toward patient's stated pain goal Goal: Pt will have limited adverse effects related to chronic pain Description: i.e. Depression, opioid induced constipation, respiratory depression Outcome: Progressing Goal: Patient will manage pain with the appropriate technique/intervention Description: Assess and monitor patient's pain using appropriate pain scale. Collaborate with interdisciplinary team and initiate plan and interventions as ordered. Re-assess patient's pain level 30-60 minutes after pain management intervention. Outcome: Progressing Goal: Patient will reduce or eliminate use of analgesics Outcome: Progressing Goal: Patients pain is managed to allow active participation in daily activities Outcome: Progressing Goal: Patient verbalizes a reduction in pain level Outcome: Progressing Goal: Discharge Pain Management Plan (Chronic Pain) Outcome: Progressing Problem: Safety Goal: Patient will [...] policy, and non-skid footwear provided. Outcome: Progressing Problem: Patient will remain free of falls Goal: [employer] Fall Precautions Outcome: Progressing Problem: Daily Care [...] Outcome: Progressing * Plan of Care - Chelsy Bush RN - 10/15/2024 10:56 PM EDT Problem: High Fall Risk Precautions Goal: High Fall Risk Precautions Outcome: Progressing Problem: Chronic Pain Description: Patient's pain progressing toward patient's stated pain goal Goal: Pt will have limited adverse effects related to chronic pain Description: i.e. Depression, opioid induced constipation, respiratory depression Outcome: Progressing Goal: Patient will manage pain with the appropriate technique/intervention Description: Assess and monitor patient's pain using appropriate pain scale. Collaborate with interdisciplinary team and initiate plan and interventions as ordered. Re-assess patient's pain level 30-60 minutes after pain management intervention. Outcome: Progressing Goal: Patient will reduce or eliminate use of analgesics Outcome: Progressing Goal: Patients pain is managed to allow active participation in daily activities Outcome: Progressing Goal: Patient verbalizes a reduction in pain level Outcome: Progressing Goal: Discharge Pain Management Plan (Chronic Pain) Outcome: Progressing Problem: Safety Goal: Patient will [...] policy, and non-skid footwear provided. Outcome: Progressing Problem: Patient will remain free of falls Goal: [employer] Fall Precautions Outcome: Progressing Problem: Daily Care [...] goals Outcome: Progressing * Care Coordination - Kandy Fuentes - 10/15/2024 2:26 PM EDT Health Case Management/Social Work Department Progress Note Patient Information Patient Name: Julien Gilbert Hospital day: 10 Inpatient/Observation: Inpatient Level of Care: blue Admit date: 10/05/2024 Admission diagnosis: AMS PMH: has a past medical history of Alcoholic cirrhosis of liver (CMS-HCC), Esophageal varices ([facility]-HCC), Hepatorenal syndrome ([facility]-HCC), Hypertension, Other hyperlipidemia (07/26/2024), Renal cell carcinoma ([facility]-HCC), Thrombocytopenia ([facility]-HCC), and Thyroid disease. PCP: Enedina Mcguire NP Home Pharmacy: [address] [address] [facility] [address] [facility] [id number] Medical Insurance Coverage: Payor: [facility] / Plan: [facility] / Product Type: *No Producttype* / Other Pertinent Information RN/CM received update from team and completed chart review. Pt is not medically ready for discharge. Nephrology following. Watching creatinine levels. Had left heart cath yesterday. Discharge Plan Anticipated discharge plan: home Anticipated discharge date: 10/16/24 CM/SW will continue to follow and remain available for discharge planning needs. Kandy BAE RN * Plan of Care - Anu Wolff RN - 10/15/2024 8:20 AM EDT Problem: High Fall Risk Precautions Goal: [place] Risk Precautions Outcome: Progressing Problem: Chronic Pain Description: Patient's pain progressing toward patient's stated pain goal Goal: Pt will have limited adverse effects related to chronic pain Description: i.e. Depression, opioid induced constipation, respiratory depression Outcome: Progressing Goal: Patient will manage pain with the appropriate technique/intervention Description: Assess and monitor patient's pain using appropriate pain scale. Collaborate with interdisciplinary team and initiate plan and interventions as ordered. Re-assess patient's pain level 30-60 minutes after pain management intervention. Outcome: Progressing Goal: Patient will reduce or eliminate use of analgesics Outcome: Progressing Goal: Patients pain is managed to allow active participation in daily activities Outcome: Progressing Goal: Patient verbalizes a reduction in pain level Outcome: Progressing Goal: Discharge Pain Management Plan (Chronic Pain) Outcome: Progressing Problem: Safety Goal: Patient will [...] policy, and non-skid footwear provided. Outcome: Progressing Problem: Patient will remain free of falls Goal: [employer] Fall Precautions Outcome: Progressing Problem: Daily Care [...] Outcome: Progressing * Plan of Care - Sofía Perkins RN - 10/14/2024 12:42 PM EDT Problem: High Fall Risk Precautions Goal: [place] Risk Precautions Outcome: Progressing * Care Coordination - Kandy Fuentes - 10/14/2024 11:[address] [facility] Case Management/Social Work Department Progress Note Patient Information Patient Name: Julien Gilbert Hospital day: 9 Inpatient/Observation: Inpatient Level of Care: blue Admit date: 10/05/2024 Admission diagnosis: AMS PMH: has a past medical history of Alcoholic cirrhosis of liver (CMS-HCC), Esophageal varices ([facility]HCC), Hepatorenal syndrome ([facility]-HCC), Hypertension, Other hyperlipidemia (07/26/2024), Renal cell carcinoma ([facility]HCC), Thrombocytopenia ([facility]-HCC), and Thyroid disease. PCP: Enedina Mcguire NP Home Pharmacy: [facility] [address] [place] [address] [place] [address] [facility] [address] [facility] [id number] Medical Insurance Coverage: Payor: [facility] / Plan: [facility] / Product Type: *No Producttype* / Other Pertinent Information RN/CM received update from team and completed chart review. Pt is not medically ready for discharge. Patient to get left HC today and repeat renal panel. Discharge Plan Anticipated discharge plan: home Anticipated discharge date: 10/15/24 CM/SW will continue to follow and remain available for discharge planning needs. Kandy BAE [facility] * Plan of Care - Anjelica Day RN - 10/14/2024 6:33 AM EDT Problem: High Fall Risk Precautions Goal: [place] Risk Precautions Outcome: Progressing Problem: Chronic Pain Description: Patient's pain progressing toward patient's stated pain goal Goal: Pt will have limited adverse effects related to chronic pain Description: i.e. Depression, opioid induced constipation, respiratory depression Outcome: Progressing Goal: Patient will manage pain with the appropriate technique/intervention Description: Assess and monitor patient's pain using appropriate pain scale. Collaborate with interdisciplinary team and initiate plan and interventions as ordered. Re-assess patient's pain level 30-60 minutes after pain management intervention. Outcome: Progressing * Care Coordination - Kandy Fuentes - 10/13/2024 11:53 AM EDT Health Case Management/Social Work Department Progress Note Patient Information Patient Name: Julien Gilbert Hospital day: 8 Inpatient/Observation: Inpatient Level of Care: blue Admit date: 10/05/2024 Admission diagnosis: AMS PMH: has a past medical history of Alcoholic cirrhosis of liver (CMS-HCC), Alcoholic hepatitis, Esophageal varices (CMS-HCC), Hepatorenal syndrome ([facility]- HCC), Hypertension, Other hyperlipidemia (07/26/2024), Renal cell carcinoma (CMS-HCC), Thrombocytopenia ([facility]HCC), and Thyroid disease. PCP: Enedina Mcguire NP Home Pharmacy: [facility] [address] [place] [address] [address] [facility] [address] [facility] [id number] Medical Insurance Coverage: Payor: [employer] / Plan: [facility] / Product Type: *No Producttype* / Other Pertinent Information RN/CM received update from team and completed chart review. Pt is not medically ready for discharge. Patient is going to have left heart cath today. Discharge Plan Anticipated discharge plan: home Anticipated discharge date: 10/14/24 CM/SW will continue to follow and remain available for discharge planning needs. Kandy BAE RN * Plan of Care - Gerda Guerra RN - 10/11/2024 10:30 AM EDT Problem: Chronic Pain Description: Patient's pain progressing toward patient's stated pain goal Goal: Pt will have limited adverse effects related to chronic pain Description: i.e. Depression, opioid induced constipation, respiratory depression Outcome: Progressing Goal: Patient will manage pain with the appropriate technique/intervention Description: Assess and monitor patient's pain using appropriate pain scale. Collaborate with interdisciplinary team and initiate plan and interventions as ordered. Re-assess patient's pain level 30-60 minutes after pain management intervention. Outcome: Progressing Goal: Patient will reduce or eliminate use of analgesics Outcome: Progressing Goal: Patients pain is managed to allow active participation in daily activities Outcome: Progressing Goal: Patient verbalizes a reduction in pain level Outcome: Progressing Goal: Discharge Pain Management Plan (Chronic Pain) Outcome: Progressing Problem: Safety Goal: Patient will [...] policy, and non-skid footwear provided. Outcome: Progressing * Care Coordination - Kandy Fuentes - 10/10/2024 12:[address] [facility] Case Management/Social Work Department Progress Note Patient Information Patient Name: Julien Gilbert Hospital day: 5 Inpatient/Observation: Inpatient Level of Care: blue Admit date: 10/05/2024 Admission diagnosis: AMS PMH: has a past medical history of Alcoholic cirrhosis of liver (CMS-HCC), Alcoholic hepatitis, Esophageal varices (CMS-HCC), Hepatorenal syndrome ([facility]- HCC), Hypertension, Other hyperlipidemia (07/26/2024), Renal cell carcinoma ([facility]HCC), Thrombocytopenia ([facility]), and Thyroid disease. PCP: Enedina Mcguire NP Home Pharmacy: [facility] [address] [place], [place] [address]DO, [facility] [address] [address] [facility] [address] [facility] [id number] Medical Insurance Coverage: Payor: [facility] / Plan: [facility] / Product Type: *No Producttype* / Other Pertinent Information RN/CM received update from team and completed chart review. Pt is not medically ready for discharge. Patient is here for pre transplant evaluation. Patient having EGD today. Diet will be put in place after EGD. IR consulted for paracentesis today. Sunday to have left heart cath. Vanc to be stopped today, and CTX tomorrow, then transitioning back to SBP prophylaxis regimen, including cipro Discharge Plan Anticipated discharge plan: home Anticipated discharge date: 10/14/24 CM/SW will continue to follow and remain available for discharge planning needs. Kandy BAE [facility] * Plan of Care - Jodi Menezes RN - 10/10/2024 11:11 AM EDT Problem: Chronic Pain Description: Patient's pain progressing toward patient's stated pain goal Goal: Pt will have limited adverse effects related to chronic pain Description: i.e. Depression, opioid induced constipation, respiratory depression Outcome: Progressing Goal: Patient will manage pain with the appropriate technique/intervention Description: Assess and monitor patient's pain using appropriate pain scale. Collaborate with interdisciplinary team and initiate plan and interventions as ordered. Re-assess patient's pain level 30-60 minutes after pain management intervention. Outcome: Progressing Goal: Patient will reduce or eliminate use of analgesics Outcome: Progressing Goal: Patients pain is managed to allow active participation in daily activities Outcome: Progressing Goal: Patient verbalizes a reduction in pain level Outcome: Progressing Goal: Discharge Pain Management Plan (Chronic Pain) Outcome: Progressing Problem: Safety Goal: Patient will [...] policy, and non-skid footwear provided. Outcome: Progressing Problem: Patient will remain free of falls Goal: [employer] Fall Precautions Outcome: Progressing Problem: Daily Care [...] and interventions as needed. Outcome: Progressing Problem: High Fall Risk Precautions Goal: High Fall Risk Precautions Outcome: Not Progressing Note: Patient refuses bed alarm. Educated on importance of safe ambulation with assistance. Patientstill refuses. Patient's gait is steady, and he is A&Ox4. Problem: Safety Goal: Patient with weight > 350lbs will have appropriate equipment Description: Consider ordering Bariatric Bed, Chair and Bedside Commode for patient weight > 350lbs. Outcome: Completed Note: N/A * Plan of Care - Willa Rascon RN - 10/09/2024 3:28 PM EDT Problem: High Fall Risk Precautions Goal: [place] Risk Precautions Outcome: Progressing Problem: Chronic Pain Description: Patient's pain progressing toward patient's stated pain goal Goal: Pt will have limited adverse effects related to chronic pain Description: i.e. Depression, opioid induced constipation, respiratory depression Outcome: Progressing Goal: Patient will manage pain with the appropriate technique/intervention Description: Assess and monitor patient's pain using appropriate pain scale. Collaborate with interdisciplinary team and initiate plan and interventions as ordered. Re-assess patient's pain level 30-60 minutes after pain management intervention. Outcome: Progressing Problem: Safety Goal: Patient will [...] policy, and non-skid footwear provided. Outcome: Progressing Problem: Patient will remain free of falls Goal: [employer] Fall Precautions Outcome: Progressing Problem: Daily Care [...] goals Outcome: Progressing * Care Coordination - Kandy Fuentes - 10/09/2024 12:[address] [facility] Case Management/Social Work Department Progress Note Patient Information Patient Name: Julien Gilbert Hospital day: 4 Inpatient/Observation: Inpatient Level of Care: blue Admit date: 10/05/2024 Admission diagnosis: AMS PMH: has a past medical history of Alcoholic cirrhosis of liver (CMS-HCC), Alcoholic hepatitis, Esophageal varices ([facility]HCC), Hepatorenal syndrome ([facility]- HCC), Hypertension, Other hyperlipidemia (07/26/2024), Renal cell carcinoma ([facility]HCC), Thrombocytopenia ([facility]HCC), and Thyroid disease. PCP: Enedina Mcguire NP Home Pharmacy: [facility] [address] [place] [address] [place] [address] [facility] [address] [facility] [id number] Medical Insurance Coverage: Payor: [facility] / Plan: [facility] / Product Type: *No Producttype* / Other Pertinent Information RN/CM received update from team and completed chart review. Pt is not medically ready for discharge. Patient getting renal panel today. Patient to have EGD tomorrow. Patient having pre-transplant evaluation. Discharge Plan Anticipated discharge plan: home Anticipated discharge date: 10/10/24 CM/SW will continue to follow and remain available for discharge planning needs. Kandy BAE RN * Care Coordination - Kandy Fuentes - 10/08/2024 3:[address] [facility] Case Management/Social Work Department Progress Note Patient Information Patient Name: Julien Gilbert Hospital day: 3 Inpatient/Observation: Inpatient Level of Care: blue Admit date: 10/05/2024 Admission diagnosis: AMS PMH: has a past medical history of Alcoholic cirrhosis of liver (CMS-HCC), Alcoholic hepatitis, Esophageal varices (CMS-HCC), Hepatorenal syndrome (CMS- HCC), Hypertension, Other hyperlipidemia (07/26/2024), Renal cell carcinoma (CMS-HCC), Thrombocytopenia (CMS-HCC), and Thyroid disease. PCP: Enedina Mcguire NP Home Pharmacy: [facility] [address] [place] [address] [address] [facility] [address] [facility] [id number] Medical Insurance Coverage: Payor: [facility] / Plan: [facility] / Product Type: *No Producttype* / Other Pertinent Information RN/CM received update from team and completed chart review. Pt is not medically ready for discharge. Patient needing blood transfusion today. CT scan today. Patient going through pre-transplant evaluation. Discharge Plan Anticipated discharge plan: home Anticipated discharge date: 10/10/24 CM/SW will continue to follow and remain available for discharge planning needs. Kandy BAE RN * Care Coordination - Kandy Fuentes - 10/07/2024 3:[address] [facility] Case Management/Social Work Department Progress Note Patient Information Patient Name: Julien Gilbert Hospital day: 2 Inpatient/Observation: Inpatient Level of Care: blue Admit date: 10/05/2024 Admission diagnosis: AMS PMH: has a past medical history of Alcoholic cirrhosis of liver (CMS-HCC), Alcoholic hepatitis, Esophageal varices (CMS-HCC), Hepatorenal syndrome (CMS- HCC), Hypertension, Other hyperlipidemia (07/26/2024), Renal cell carcinoma (CMS-HCC), Thrombocytopenia (CMS-HCC), and Thyroid disease. PCP: Enedina Mcguire NP Home Pharmacy: [facility] [place] [address] [place] [address] [place] [address] [facility] [address] [facility] [id number] Medical Insurance Coverage: Payor: [facility] / Plan: [facility] / Product Type: *No Producttype* / Other Pertinent Information RN/CM received update from team and completed chart review. Pt is not medically ready for discharge. Nephrology consulted. Patient on day 2 of albumin challenge. Renal/liver following. Patient is currently on IV antibiotics. Patient has a history of bleeding - keeping eye on hgb. Discharge Plan Anticipated discharge plan: home Anticipated discharge date: 10/09/24 CM/SW will continue to follow and remain available for discharge planning needs. Kandy BAE RNCM * Plan of Care - Jodi Menezes RN - 10/07/2024 11:11 AM EDT Problem: High Fall Risk Precautions Goal: High Fall Risk Precautions 10/07/2024 1111 by Jodi Menezes RN Outcome: Progressing 10/07/2024 1110 by Jodi Menezes RN Outcome: Progressing Problem: Chronic Pain Description: Patient's pain progressing toward patient's stated pain goal Goal: Pt will have limited adverse effects related to chronic pain Description: i.e. Depression, opioid induced constipation, respiratory depression 10/07/2024 1111 by Jodi Menezes RN Outcome: Progressing 10/07/2024 1110 by Jodi Menezes RN Outcome: Progressing Goal: Patient will manage pain with the appropriate technique/intervention Description: Assess and monitor patient's pain using appropriate pain scale. Collaborate with interdisciplinary team and initiate plan and interventions as ordered. Re-assess patient's pain level 30-60 minutes after pain management intervention. 10/07/2024 1111 by Jodi Menezes RN Outcome: Progressing 10/07/2024 1110 by Jodi Menezes RN Outcome: Progressing Goal: Patient will reduce or eliminate use of analgesics 10/07/2024 1111 by Jodi Menezes RN Outcome: Progressing 10/07/2024 1110 by Jodi Menezes RN Outcome: Progressing Goal: Patients pain is managed to allow active participation in daily activities 10/07/2024 1111 by Jodi Menezes RN Outcome: Progressing 10/07/2024 1110 by Jodi Menezes RN Outcome: Progressing Goal: Patient verbalizes a reduction in pain level 10/07/2024 1111 by Jodi Menezes RN Outcome: Progressing 10/07/2024 1110 by Jodi Menezes RN Outcome: Progressing Goal: Discharge Pain Management Plan (Chronic Pain) 10/07/2024 1111 by Jodi Menezes RN Outcome: Progressing 10/07/2024 1110 by Jodi Menezes RN Outcome: Progressing Problem: Safety Goal: Patient will [...] Patient will remain free of falls Goal: [employer] Fall Precautions Outcome: Progressing Problem: Daily Care [...] Outcome: Progressing * Plan of Care - Janice Wayne RN - 10/06/2024 8:41 AM EDT Problem: High Fall Risk Precautions Goal: High Fall Risk Precautions Outcome: Progressing documented in this encounter Plan of Treatment Upcoming Encounters Date Type Department Care Team (Late st Contact Info) Description 12/05/2024 8:01 AM EDT Hospital Encounter [facility] ENDOSCOPY [address] [place] [address] Chris Orosco MD [address] [place] [phone] 12/05/2024 8:01 AM EDT - 12/05/2024 8:31 AM EDT Surgery [facility] ENDOSCOPY [address] [place] [address] Chris Orosco MD [address] [place] [id number] EGD Scheduled Procedures Name Priority Associated Diagnoses Date/Ti me EGD Cirrhosis of liver with ascites, unspecified hepatic cirrhosis type ([facility]-HCC) 12/05/2024 8:01 AM EDT documented as of this encounter Procedures Procedure Name Priority Date/Time Associated Diagnosis Comments BLOOD TRANSFUSION - SCAN 025 3:03 PM EDT RENAL FUNCTION PANEL W/EGFR STAT 10/17/2024 5:48 AM EDT HEPATIC FUNCTION PANEL STAT 6:31 AM EDT RENAL FUNCTION PANEL W/EGFR STAT 10/16/2024 6:31 AM EDT PROTIME-INR STAT 10/16/2024 6:31 AM EDT CBC STAT 10/16/2024 6:31 AM EDT MAGNESIUM STAT 10/16/2024 6:31 AM EDT CARISA RHYTHM STRIP - SCAN 10/16/19 8:02 PM EDT CARISA RHYTHM STRIP - SCAN 10/16/19 8:02 PM EDT PREPARE PLATELETS, LEUKOREDUCED Routine 10/15/2024 6:16 AM EDT PREPARE FRESH FROZEN PLASMA Routine 10/15/2024 6:15 AM EDT HEPATIC FUNCTION PANEL STAT 6:08 AM EDT RENAL FUNCTION PANEL W/EGFR STAT 10/15/2024 6:08 AM EDT PRA-HLA AB SCREEN (CYTOTOXIC) Routine 10/15/2024 6:08 AM EDT PROTIME-INR STAT 10/15/2024 6:08 AM EDT CBC STAT 10/15/2024 6:08 AM EDT MAGNESIUM STAT 10/15/2024 6:08 AM EDT LEFT HEART CATH Routine 10/14/2024 2:09 PM EDT TRANSFUSE FRESH FROZEN PLASMA Routine 10/14/2024 1:15 PM EDT TRANSFUSE PLATELETS Routine 10/14/2024 9 :14 AM EDT ABO/RH Routine 10/14/2024 8:21 AM EDT ANTIBODY SCREEN Routine 10/14/2024 8:21 AM EDT HEPATIC FUNCTION PANEL STAT 2:53 AM EDT RENAL FUNCTION PANEL W/EGFR STAT 10/14/2024 2:53 AM EDT PROTIME-INR STAT 10/14/2024 2:53 AM EDT CBC STAT 10/14/2024 2:53 AM EDT MAGNESIUM STAT 10/14/2024 2:53 AM EDT CARDIAC CATH DOCUMENTS SCAN 10/14/2024 2:06 AM EDT MRI ABDOMEN W AND WO CONTRAST Routine 10/13/2024 11:49 PM EDT HEPATIC FUNCTION PANEL STAT 5:35 AM EDT RENAL FUNCTION PANEL W/EGFR STAT 10/13/2024 5:35 AM EDT PROTIME-INR STAT 10/13/2024 5:35 AM EDT CBC STAT 10/13/2024 5:35 AM EDT MAGNESIUM STAT 10/13/2024 5:35 AM EDT AMMONIA Routine 10/13/2024 5:35 AM EDT CARISA RHYTHM STRIP - SCAN 10/13/19 25 10:30 PM EDT HEPATIC FUNCTION PANEL STAT 5:44 AM EDT RENAL FUNCTION PANEL W/EGFR STAT 10/12/2024 5:44 AM EDT PROTIME-INR STAT 10/12/2024 5:44 AM EDT CBC STAT 10/12/2024 5:44 AM EDT MAGNESIUM STAT 10/12/2024 5:44 AM EDT CARISA RHYTHM STRIP - SCAN 10/12/19 25 10:04 PM EDT HEPATIC FUNCTION PANEL STAT 3:02 AM EDT RENAL FUNCTION PANEL W/EGFR STAT 10/11/2024 3:02 AM EDT PROTIME-INR STAT 10/11/2024 3:02 AM EDT CBC STAT 10/11/2024 3:02 AM EDT MAGNESIUM STAT 10/11/2024 3:02 AM EDT VANCOMYCIN, RANDOM Routine 10/11/2024 3: 02 AM EDT IR PARACENTESIS INCLUDING IMAGING GUIDANCE Routine 10/10/2024 3:13 PM EDT STRESS TESTING LAB - SCAN 2024 3:08 PM EDT BODY FLUID CULTURE PLUS STAIN Routine 10/10/2024 1:51 PM EDT Cirrhosis of liver with ascites, unspecified hepatic cirrhosis type (CMS-HCC) BODY FLUID CELL COUNT Routine 10/10/2024 1:51 PM EDT Cirrhosis of liver with ascites, unspecified hepatic cirrhosis type (CMS-HCC) EGD EGD/Sm Bowel 10/10/2024 12:00 PM EDT Alcoholic cirrhosis of liver with ascites (CMS-HCC) UPPER GI ENDOSCOPY Routine 10/10/2024 11:48 AM EDT HEPATIC FUNCTION PANEL STAT 5:23 AM EDT RENAL FUNCTION PANEL W/EGFR STAT 10/10/2024 5:23 AM EDT PROTIME-INR STAT 10/10/2024 5:23 AM EDT CBC STAT 10/10/2024 5:23 AM EDT MAGNESIUM STAT 10/10/2024 5:23 AM EDT VANCOMYCIN, RANDOM Routine 10/10/2024 5: 23 AM EDT ECHO STRESS W/ CONTRAST STAT 10/10/19 4:37 PM EDT RENAL FUNCTION PANEL W/EGFR STAT 10/09/2024 1:05 PM EDT RENAL FUNCTION PANEL W/EGFR STAT 10/09/2024 8:14 AM EDT PREPARE RBC, LEUKOREDUCED Routine 2024 6:16 AM EDT RENAL TX RECIPIENT Routine 10/09/2024 4: 59 AM EDT HEPATIC FUNCTION PANEL STAT 4:59 AM EDT RENAL FUNCTION PANEL W/EGFR STAT 10/09/2024 4:59 AM EDT PROTIME-INR STAT 10/09/2024 4:59 AM EDT CBC STAT 10/09/2024 4:59 AM EDT MAGNESIUM STAT 10/09/2024 4:59 AM EDT VANCOMYCIN, RANDOM Routine 10/09/2024 4: 59 AM EDT CBC Routine 10/08/2024 5:52 PM EDT MMR(IGG) PANEL (MEASLES, MUMPS, RUBELLA) Routine 10/08/2024 10:25 AM EDT QUANTIFERON TB2 AG Routine 10/08/2024 10:25 AM EDT QUANTIFERON TB1 AG Routine 10/08/2024 10:25 AM EDT QUANTIFERON NIL Routine 10/08/2024 10:25 AM EDT QUANTIFERON MITOGEN Routine 10/08/2024 10:25 AM EDT IRON STUDIES Routine 10/08/2024 10:25 AM EDT VITAMIN D 25 HYDROXY Routine 10/08/2024 10:25 AM EDT HEMOGLOBIN A1C Routine 10/08/2024 10:25 AM EDT FERRITIN Routine 10/08/2024 10:25 AM EDT TRANSFUSE RED BLOOD CELLS Routine 2024 10:11 AM EDT RETICULOCYTE COUNT, AUTO Add-On 025 7:41 AM EDT ABO/RH Routine 10/08/2024 7:41 AM EDT CBC Routine 10/08/2024 7:41 AM EDT ANTIBODY SCREEN Routine 10/08/2024 7:41 AM EDT HAPTOGLOBIN Routine 10/08/2024 7:41 AM EDT HEPATIC FUNCTION PANEL STAT 5:36 AM EDT RENAL FUNCTION PANEL W/EGFR STAT 10/08/2024 5:36 AM EDT PROTIME-INR STAT 10/08/2024 5:36 AM EDT CBC STAT 10/08/2024 5:36 AM EDT MAGNESIUM STAT 10/08/2024 5:36 AM EDT LACTATE DEHYDROGENASE Add-On 10/08/2024 5:36 AM EDT VANCOMYCIN, RANDOM Routine 10/08/2024 5: 36 AM EDT ENTERIC PATHOGEN PANEL Routine 10:50 PM EDT URINE DRUG CONFIRMATION Routine 10/08/19 10:50 PM EDT GIARDIA CRYPTOSPORIDIUM ANTIGENS Routine 10/07/2024 10:50 PM EDT URINE DRUG COMPREHENSIVE PANEL, CONFIRMATION Routine 10/07/2024 10:50 PM EDT URINE DRUG SCREEN REFLEX TO CONFIRMATION Routine 10/07/2024 10:50 PM EDT OVA AND PARASITE COMPREHENSIVE W/ GIARDIA/CRYPTO Routine 10/07/2024 10:50 PM EDT HEPATITIS A ANTIBODY TOTAL Routine 10/07/2024 6:38 PM EDT HEPATITIS A IGM Routine 10/07/2024 6:38 PM EDT HEPATITIS C ANTIBODY Routine 10/07/2024 6:38 PM EDT HEPATITIS B SURFACE ANTIBODY, QUANTITATIVE Routine 10/07/2024 6:38 PM EDT HEPATITIS B SURFACE ANTIGEN Routine 10/07/2024 6:38 PM EDT MMR(IGG) PANEL (MEASLES, MUMPS, RUBELLA) Routine 10/07/2024 6:37 PM EDT TREPONEMA PALLIDUM AB WITH REFLEX Routine 10/07/2024 6:37 PM EDT PHOSPHATIDYLETHANOL CONFIRMATION, B Routine 10/07/2024 6:37 PM EDT CMV IGG ANTIBODY Routine 10/07/2024 6:37 PM EDT [id number] (AAT) QUANTITATION & MUTATION Routine 10/07/2024 6:37 PM EDT STRONGYLOIDES AB Routine 10/07/2024 6:37 PM EDT ETHANOL, SERUM Routine 10/07/2024 6:37 PM EDT KATIE-WATKINS VIRUS EARLY ANTIGEN ANTIBODY, IGG Routine 10/07/2024 6:37 PM EDT ABO/RH Timed 10/07/2024 6:37 PM EDT ABO/RH Routine 10/07/2024 6:37 PM EDT TOXOPLASMA GONDII ANTIBODY, IGG Routine 10/07/2024 6:37 PM EDT HIV 1+2 ANTIBODY/ANTIGEN WITH REFLEX Routine 10/07/2024 6:37 PM EDT VARICELLA ZOSTER ANTIBODY, IGG Routine 10/07/2024 6:37 PM EDT TSH Routine 10/07/2024 6:37 PM EDT IGA Routine 10/07/2024 6:37 PM EDT LIPID PANEL Routine 10/07/2024 6:37 PM EDT XR MANDIBLE MINIMUM 4-VIEWS Routine 10/07/2024 6:19 PM EDT US DUPLEX BEF-LZDNNS-COXUPKY COMPLETE Routine 10/07/2024 3:48 PM EDT US ABDOMEN COMPLETE Routine 10/07/2024 3 :48 PM EDT CARISA RHYTHM STRIP - SCAN 10/08/19 3:30 PM EDT HEPATIC FUNCTION PANEL STAT 6:00 AM EDT RENAL FUNCTION PANEL W/EGFR STAT 10/07/2024 6:00 AM EDT AFP TUMOR MARKER Routine 10/07/2024 6:00 AM EDT PROTIME-INR STAT 10/07/2024 6:00 AM EDT CBC STAT 10/07/2024 6:00 AM EDT MAGNESIUM STAT 10/07/2024 6:00 AM EDT VANCOMYCIN, RANDOM Routine 10/07/2024 6: 00 AM EDT OSMOLALITY Routine 10/06/2024 2:[address] HEAD WO CONTRAST Routine 10/06/2024 1 :56 PM EDT SODIUM, URINE, RANDOM Routine 10/06/2024 1:25 PM EDT POTASSIUM, URINE, RANDOM Routine 025 1:25 PM EDT OSMOLALITY, URINE Routine 10/06/2024 1:2 5 PM EDT CREATININE, URINE, RANDOM Routine 2024 1:25 PM EDT CHLORIDE, URINE, RANDOM Routine 10/07/19 1:25 PM EDT URINE DRUG CONFIRMATION Routine 10/07/19 11:51 AM EDT URINE DRUG SCREEN REFLEX TO CONFIRMATION Routine 10/06/2024 11:51 AM EDT SODIUM, URINE, RANDOM Routine 10/06/2024 11:51 AM EDT POTASSIUM, URINE, RANDOM Routine 025 11:51 AM EDT CHLORIDE, URINE, RANDOM Routine 10/07/19 11:51 AM EDT URINALYSIS W/RFL TO MICROSCOPIC Routine 10/06/2024 11:51 AM EDT LACTIC ACID STAT 10/06/2024 7:38 AM EDT VENOUS BLOOD GAS, LINE/SYRINGE STAT 10/06/2024 7:37 AM EDT CBC STAT 10/06/2024 7:37 AM EDT COMPREHENSIVE METABOLIC PANEL STAT 10/06/2024 7:37 AM EDT VENOUS BLOOD GAS, LINE/SYRINGE STAT 10/06/2024 4:03 AM EDT HEPATITIS A ANTIBODY TOTAL Routine 10/06/2024 4:01 AM EDT HEPATIC FUNCTION PANEL Routine 4:01 AM EDT RENAL FUNCTION PANEL W/EGFR Routine 10/06/2024 4:01 AM EDT HEPATITIS A IGM Routine 10/06/2024 4:01 AM EDT HEPATITIS C ANTIBODY Routine 10/06/2024 4:01 AM EDT AFP TUMOR MARKER Routine 10/06/2024 4:01 AM EDT HEPATITIS B SURFACE ANTIBODY, QUANTITATIVE Routine 10/06/2024 4:01 AM EDT HEPATITIS B SURFACE ANTIGEN Routine 10/06/2024 4:01 AM EDT PROTIME-INR Routine 10/06/2024 4:01 AM EDT CBC Routine 10/06/2024 4:01 AM EDT MAGNESIUM Routine 10/06/2024 4:01 AM EDT SALICYLATE LEVEL Routine 10/06/2024 4:01 AM EDT UPPER RESPIRATORY VIRAL/BACTERIAL PANEL-FORMULA BOTTLER ONLY Routine 10/06/2024 3:12 AM EDT XR PORTABLE CHEST Routine 10/06/2024 1:1 6 AM EDT PHOSPHATIDYLETHANOL CONFIRMATION, B Routine 10/06/2024 1:04 AM EDT THYROID FUNCTION CASCADE Routine 025 1:04 AM EDT LACTIC ACID STAT 10/06/2024 1:04 AM EDT ETHANOL, SERUM Routine 10/06/2024 1:04 AM EDT BLOOD CULTURE-PERIPHERAL Routine 025 1:04 AM EDT BLOOD CULTURE-PERIPHERAL Routine 025 1:04 AM EDT PROTIME-INR STAT 10/06/2024 1:04 AM EDT CBC STAT 10/06/2024 1:04 AM EDT AMMONIA Routine 10/06/2024 1:04 AM EDT ACETAMINOPHEN LEVEL Routine 10/06/2024 1 :04 AM EDT COMPREHENSIVE METABOLIC PANEL STAT 10/06/2024 1:04 AM EDT documented in this encounter Results * Blood Transfusion - scan (10/18/2024 3:03 PM EDT) us Scanning Uchhim SCAN DOCS - NO RESULTS Final Res ult * (ABNORMAL) Renal Function Panel w/EGFR (10/17/2024 5:48 AM EDT) Sodium 133 133 - 146 mmol/L 10/17/2024 7:02 AM EDT [facility] Potassium 3.4(L) 3.5 - 5.3 mmol/L 10/17/2024 7:02 AM EDT [facility] Chloride 104 98 - 110 mmol/L 10/17/2024 7:02 AM EDT [facility] CO2 18(L) 21 - 33 mmol/L 10/17/2024 7:02 AM EDT [facility] Anion Gap 11 3 - 16 mmol/L 10/17/2024 7:02 AM EDT [facility] BUN 54(H) 7 - 25 mg/dL 10/17/2024 7:02 AM EDT [facility] Creatinine 2.88(H) 0.60 - 1.30 mg/dL 10/17/2024 7:02 AM EDT [facility] Glucose 127(H) 70 - 100 mg/dL 10/17/2024 7:02 AM EDT [facility] Calcium 8.2(L) 8.6 - 10.3 mg/dL 10/17/2024 7:02 AM EDT [facility] Phosphorus 4.5 2.1 - 4.7 mg/dL 10/17/2024 7:02 AM EDT [facility] Albumin 3.1(L) 3.5 - 5.7 g/dL 10/17/2024 7:02 AM EDT [facility] Osmolality, Calculated 292 278 - 305 mOsm/kg 10/17/2024 7:02 AM EDT [facility] EGFR 27 10/17/2024 7:02 AM EDT [facility] Comment:As of 2021, the estimated [...] Disease. Am J Kidney Dis. 2020. Plasma 10/17/2024 5:48 AM EDT 10/17/2024 6:32 AM EDT us Eileen Schroeder MD, PhD LAB BLOOD ORDERABLES Final Result [facility] [address] [place] [address], [facility] * (ABNORMAL) Protime-INR (10/16/2024 6:31 AM EDT) Protime 22.5(H) 12.1 - 15.1 seconds 10/16/2024 8:04 AM EDT [facility] INR 1.9(H) 0.9 - 1.1 10/16/2024 8:04 AM EDT [facility] Comment: RECOMMENDED THERAPEUTIC RANGES USING INR : Stable oral anticoagulant therapy: 2.0 - 3.0 Mechanical prosthetic heart valve: 2.5 - 3.5 Recurrent acute myocardial infarction: 2.5 - 3.5 Plasma 10/16/2024 6:31 AM EDT 10/16/2024 6:56 AM EDT us Eileen Schroeder MD, PhD LAB BLOOD ORDERABLES Final Result [facility] [address] [id number], [facility] * (ABNORMAL) Hepatic Function Panel (10/16/2024 6:31 AM EDT) Total Bilirubin 7.6(H) 0.0 - 1.5 mg/dL 10/16/2024 7:24 AM EDT [facility] Bilirubin, Direct 3.97(H) 0.00 - 0.40 mg/dL 10/16/2024 7:24 AM EDT [facility] AST 45(H) 13 - 39 U/L 10/16/2024 7:24 AM EDT [facility] ALT 23 7 - 52 U/L 10/16/2024 7:24 AM EDT [facility] Alkaline Phosphatase 137(H) 36 - 125 U/L 10/16/2024 7:24 AM EDT [facility] Total Protein 5.1(L) 6.4 - 8.9 g/dL 10/16/2024 7:24 AM EDT [facility] Albumin 3.4(L) 3.5 - 5.7 g/dL 10/16/2024 7:24 AM EDT [facility] Bilirubin, Indirect 3.63(H) 0.00 - 1.10 mg/dL 10/16/2024 7:24 AM EDT [facility] Plasma 10/16/2024 6:31 AM EDT 10/16/2024 6:56 AM EDT Eileen Schroeder MD, PhD LAB BLOOD ORDERABLES Final Result Performing Organization Address [facility] de Phone Number [facility] [address] * Magnesium (10/16/2024 6:31 AM EDT) Magnesium 2.1 1.5 - 2.5 mg/dL 10/16/2024 7:24 AM EDT [facility] Plasma 10/16/2024 6:31 AM EDT 10/16/2024 6:56 AM EDT Eileen Schroeder MD, PhD LAB BLOOD ORDERABLES Final Result Performing Organization Address [facility] de Phone Number [facility] [address] * (ABNORMAL) Renal Function Panel w/EGFR (10/16/2024 6:31 AM EDT) Sodium 135 133 - 146 mmol/L 10/16/2024 7:24 AM EDT [facility] Potassium 3.7 3.5 - 5.3 mmol/L 10/16/2024 7:24 AM EDT [facility] Chloride 106 98 - 110 mmol/L 10/16/2024 7:24 AM EDT [facility] CO2 16(L) 21 - 33 mmol/L 10/16/2024 7:24 AM EDT [facility] Anion Gap 13 3 - 16 mmol/L 10/16/2024 7:24 AM EDT [facility] BUN 55(H) 7 - 25 mg/dL 10/16/2024 7:24 AM EDT [facility] Creatinine 3.20(H) 0.60 - 1.30 mg/dL 10/16/2024 7:24 AM EDT [facility] Glucose 121(H) 70 - 100 mg/dL 10/16/2024 7:24 AM EDT [facility] Calcium 8.5(L) 8.6 - 10.3 mg/dL 10/16/2024 7:24 AM EDT [facility] Phosphorus 4.2 2.1 - 4.7 mg/dL 10/16/2024 7:24 AM EDT [facility] Albumin 3.4(L) 3.5 - 5.7 g/dL 10/16/2024 7:24 AM EDT [facility] Osmolality, Calculated 296 278 - 305 mOsm/kg 10/16/2024 7:24 AM EDT [facility] EGFR 24 10/16/2024 7:24 AM EDT [facility] Comment:As of 2021, the estimated [...] Disease. Am J Kidney Dis. 2020. Plasma 10/16/2024 6:31 AM EDT 10/16/2024 6:56 AM EDT us Eileen Schroeder MD, PhD LAB BLOOD ORDERABLES Final Result [facility] [address] [place] [address], [facility] * (ABNORMAL) CBC (10/16/2024 6:31 AM EDT) WBC 5.8 3.8 - 10.8 10E3/uL 10/16/2024 8:00 AM EDT [facility] RBC 2.16(L) 4.20 - 5.80 10E6/uL 10/16/2024 8:00 AM EDT [facility] Hemoglobin 7.7(L) 13.2 - 17.1 g/dL 10/16/2024 8:00 AM EDT [facility] Hematocrit 22.1(L) 38.5 - 50.0 % 10/16/2024 8:00 AM EDT [facility] MCV 102.3(H) 80.0 - 100.0 fL 10/16/2024 8:00 AM EDT [facility] MCH 35.7(H) 27.0 - 33.0 pg 10/16/2024 8:00 AM EDT [facility] MCHC 34.9 32.0 - 36.0 g/dL 10/16/2024 8:00 AM EDT [facility] RDW 17.7(H) 11.0 - 15.0 % 10/16/2024 8:00 AM EDT [facility] Platelets 43(L) 140 - 400 10E3/uL 10/16/2024 8:00 AM EDT [facility] Comment: Specimen checked for clots. None detected. Slide Reviewed for PLT Clumps. None Seen. Platelet Estimate Decreased 10/16/2024 8:00 AM EDT [facility] MPV 8.6 7.5 - 11.5 fL 10/16/2024 8:00 AM EDT [facility] Whole Blood 10/16/2024 6:31 AM EDT 10/16/2024 6:57 AM EDT Narrative [facility] - 10/16/2024 8:00 AM EDT Peripheral blood smear was scanned per review criteria approved by the laboratory front office medical assistant. us Eileen Schroeder MD, PhD LAB BLOOD ORDERABLES Final Result [facility] [address] [place] [address], [facility] * CARISA Rhythm Strip - Scan (10/15/2024 8:02 PM EDT) us Scanning Uchhim SCAN DOCS - NO RESULTS Final Res ult * CARISA Rhythm Strip - Scan (10/15/2024 8:02 PM EDT) Scanning Uchhim SCAN DOCS - NO RESULTS Final Res ult * Prepare Platelets, leukoreduced, 1 Units (10/15/2024 6:16 AM EDT) Product Code C7877D45 [facility] Unit Number [id number] [facility] Dispense Status Presumed Transfused_PT [facility] Blood Expiration Date [id number] [facility] Coding System [id number] [facility] Blood Bank Product Eleazar Nguyễn MD BLOOD BANK PRODUCT ORDE RABJOSE R Final Result [facility] * Prepare Fresh Frozen Plasma, 1 Units (10/15/2024 6:15 AM EDT) Product Code [id number] [facility] Unit Number [id number] [facility] Dispense Status Presumed Transfused_PT [facility] Blood Expiration Date [id number] [facility] Coding System [id number] [facility] Blood Bank Product Eleazar Nguyễn MD BLOOD BANK PRODUCT ORDE RABJOSE R Final Result [facility] * (ABNORMAL) Protime-INR (10/15/2024 6:08 AM EDT) Protime 21.6(H) 12.1 - 15.1 seconds 10/15/2024 6:36 AM EDT [facility] INR 1.8(H) 0.9 - 1.1 10/15/2024 6:36 AM EDT [facility] Comment: RECOMMENDED THERAPEUTIC RANGES USING INR : Stable oral anticoagulant therapy: 2.0 - 3.0 Mechanical prosthetic heart valve: 2.5 - 3.5 Recurrent acute myocardial infarction: 2.5 - 3.5 Plasma 10/15/2024 6:08 AM EDT 10/15/2024 6:17 AM EDT us Eileen Schroeder MD, PhD LAB BLOOD ORDERABLES Final Result Performing Organization Address City/[facility]/ZIP Co de Phone Number [facility] [address] * (ABNORMAL) Hepatic Function Panel (10/15/2024 6:08 AM EDT) Total Bilirubin 7.1(H) 0.0 - 1.5 mg/dL 10/15/2024 6:45 AM EDT [facility] Bilirubin, Direct 3.77(H) 0.00 - 0.40 mg/dL 10/15/2024 6:45 AM EDT [facility] AST 39 13 - 39 U/L 10/15/2024 6:45 AM EDT [facility] ALT 22 7 - 52 U/L 10/15/2024 6:45 AM EDT [facility] Alkaline Phosphatase 115 36 - 125 U/L 10/15/2024 6:45 AM EDT [facility] Total Protein 4.8(L) 6.4 - 8.9 g/dL 10/15/2024 6:45 AM EDT [facility] Albumin 3.2(L) 3.5 - 5.7 g/dL 10/15/2024 6:45 AM EDT [facility] Bilirubin, Indirect 3.33(H) 0.00 - 1.10 mg/dL 10/15/2024 6:45 AM EDT [facility] Plasma 10/15/2024 6:08 AM EDT 10/15/2024 6:17 AM EDT us iEleen Schroeder MD, PhD LAB BLOOD ORDERABLES Final Result [facility] [address] [facility]. [address] * Magnesium (10/15/2024 6:08 AM EDT) Magnesium 1.8 1.5 - 2.5 mg/dL 10/15/2024 6:45 AM EDT [facility] Plasma 10/15/2024 6:08 AM EDT 10/15/2024 6:17 AM EDT us Eileen Schroeder MD, PhD LAB BLOOD ORDERABLES Final Result [facility] [address] [place] [address], [facility] * (ABNORMAL) Renal Function Panel w/EGFR (10/15/2024 6:08 AM EDT) Sodium 135 133 - 146 mmol/L 10/15/2024 6:45 AM EDT [facility] Potassium 3.4(L) 3.5 - 5.3 mmol/L 10/15/2024 6:45 AM EDT [facility] Chloride 107 98 - 110 mmol/L 10/15/2024 6:45 AM EDT [facility] CO2 17(L) 21 - 33 mmol/L 10/15/2024 6:45 AM EDT [facility] Anion Gap 11 3 - 16 mmol/L 10/15/2024 6:45 AM EDT [facility] BUN 55(H) 7 - 25 mg/dL 10/15/2024 6:45 AM EDT [facility] Creatinine 2.88(H) 0.60 - 1.30 mg/dL 10/15/2024 6:45 AM EDT [facility] Glucose 125(H) 70 - 100 mg/dL 10/15/2024 6:45 AM EDT [facility] Calcium 8.4(L) 8.6 - 10.3 mg/dL 10/15/2024 6:45 AM EDT [facility] Phosphorus 3.9 2.1 - 4.7 mg/dL 10/15/2024 6:45 AM EDT [facility] Albumin 3.2(L) 3.5 - 5.7 g/dL 10/15/2024 6:45 AM EDT [facility] Osmolality, Calculated 297 278 - 305 mOsm/kg 10/15/2024 6:45 AM EDT [facility] EGFR 27 10/15/2024 6:45 AM EDT [facility] Comment:As of 2021, the estimated [...] Disease. Am J Kidney Dis. 2020. Plasma 10/15/2024 6:08 AM EDT 10/15/2024 6:17 AM EDT us Eileen Schroeder MD, PhD LAB BLOOD ORDERABLES Final Result [facility] [address] * (ABNORMAL) CBC (10/15/2024 6:08 AM EDT) WBC 4.6 3.8 - 10.8 10E3/uL 10/15/2024 6:51 AM EDT [facility] RBC 1.94(L) 4.20 - 5.80 10E6/uL 10/15/2024 6:51 AM EDT [facility] Hemoglobin 7.1(L) 13.2 - 17.1 g/dL 10/15/2024 6:51 AM EDT [facility] Hematocrit 19.6(L) 38.5 - 50.0 % 10/15/2024 6:51 AM EDT [facility] MCV 100.8(H) 80.0 - 100.0 fL 10/15/2024 6:51 AM EDT [facility] MCH 36.7(H) 27.0 - 33.0 pg 10/15/2024 6:51 AM EDT [facility] MCHC 36.4(H) 32.0 - 36.0 g/dL 10/15/2024 6:51 AM EDT [facility] RDW 17.3(H) 11.0 - 15.0 % 10/15/2024 6:51 AM EDT [facility] Platelets 34(L) 140 - 400 10E3/uL 10/15/2024 6:51 AM EDT [facility] Comment:Specimen checked for clots. None detected. MPV 8.7 7.5 - 11.5 fL 10/15/2024 6:51 AM EDT [facility] Whole Blood 10/15/2024 6:08 AM EDT 10/15/2024 6:17 AM EDT us Eileen Schroeder MD, PhD LAB BLOOD ORDERABLES Final Result Performing Organization Address City/[facility] Co de Phone Number [facility] [address] * PRA-HLA Ab Screen (Cytotoxic) (10/15/2024 6:08 AM EDT) Pathologist [facility] The request and specimen(s) for this test have been received and transported to the [facility] at [address] [place] [address]. [address] [facility] will report results directly to the client. 10/15/2024 6:42 AM EDT [facility] Comment:The request and spec imen(s) for this test have been received and transported to the [facility] at [address] [place] [address] [facility] will report results directly to the client. Serum 10/15/2024 6:08 AM EDT 10/15/2024 6:42 AM EDT us Cosmo Pacheco MD LAB BLOOD ORDERABLES Final Resul t Performing Organization Address City/[facility]/ZIP Co de Phone Number [facility] [address] * LEFT HEART CATH (10/14/2024 2:09 PM EDT) 10/14/2024 11:4 7 AM EDT Narrative [facility] - 10/14/2024 9:27 PM EDT *[facility]* [facility] [employer] [address] [place] [id number] CATHETERIZATION LAB STUDY Patient: Julien Gilbert Age: 39 Study Date: 10/14/2024 Gender: M Study Time: 11:47:07 AM : 1985 HT/WT: 193cm / 120kg Performing Physician: Irving Matta MD Ordering Physician: Julian Mckenzie MD Referring Physician: Gerri Peterson Fellow: Mani Colindres Procedures performed: - Left heart catheterization. - Right coronary angiography. - Left coronary angiography. IMPRESSIONS: Patent coronary arteries without evidence of significant epicardial disease Patient had radial artery spasm and short arch with tortuosity which made engagement difficult, used XB 3 guide to engage LM LVEDP 22 RECOMMENDATIONS: Radial hemostasis-TR band Findings discussed with consults team INDICATIONS: Pre-op eval for liver transplant PROCEDURE IN DETAIL: Study status: Cardiac cath: elective. Consent: The risks, benefits, and alternatives to the procedure and sedation were explained to the patient and informed consent was obtained. Location: Catheterization laboratory. PROCEDURE: 1. Initial setup. The patient was brought to the laboratory in a fasting state. Surface ECG leads, blood pressure measurements, and pulse oximetric signals were monitored. 2. Skin preparation. The planned puncture sites were prepped and draped in the usual sterile manner. 3. Right radial artery access. A 0Ms91io Glidesheath - Slender - .021 sheath was advanced into the vessel. 4. Left heart catheterization was performed. The catheter was advanced across the aortic valve under fluoroscopic guidance. 5. Selective right coronary angiography was performed. A 6f JR 4 catheter was introduced. Contrast was injected. Images were obtained using multiple projections. 6. Selective left coronary angiography was performed. 7. The catheter was exchanged. 8. Right radial artery hemostasis was obtained. The sheath was removed. Vessel closure was achieved with a REG TR Band Reg device. 9. Sedation. The procedure was performed using moderate (conscious) sedation was administered under my personal supervision. A trained, dedicated, and qualified observer monitored the patient. The following parameters were monitored: oxygen saturation, heart rate, blood pressure, respiratory rate, adequacy of pulmonary ventilation, and response to care. Sedation and monitoring were provided for greater than 15 minutes. STUDY COMPLETION: The patient tolerated the procedure well. There were no complications. Contrast: Omnipaque 350 25ml (total dose). Omnipaque 350 125ml (wasted). Radiation: Fluoroscopy time: 15min. Total time: 15min. Total air KERMA: 722mGy. CORONARY ARTERIES: The coronary circulation is right dominant. The left main bifurcates normally, giving rise to the LAD and the left circumflex. The left anterior descending gives rise to 3 diagonals and 4 septals. The left circumflex gives rise to 2 obtuse marginals and no posterolaterals. The right coronary gives rise to the posterior descending artery, 2 RV marginals, and 2 posterolaterals. Left main: The left main is patent. LAD: The LAD is patent. 1st diagonal: The D1 is patent. Left circumflex: The left circumflex is patent. 1st obtuse marginal: The OM1 is patent. 2nd obtuse marginal: The OM2 is patent. Right coronary: The RCA is patent. Right posterior descending: The RPDA is patent. 1st right posterolateral: The RPL1 is patent. Hemodynamics: Circulatory function: + + + !Stage description !Condition 1 - ! + + + !LV pressure s/d, ed !, dP/gc=6763eg Hg/s! + + + !Aortic pressure s/d (m)!106/58 (75) ! + + + ATTESTATION: Dr. Matta was present for the entire procedure. Dr. Jay Quan was the initial author of this report. Prepared and electronically signed by Irving Matta MD [id number] Procedure Note Irving Matta MD - 10/14/2024 *[facility]* [employer] [address] [place] [address] CATHETERIZATION LAB STUDY Patient: Julien Gilbert Age: 39 Study Date: 10/14/2024 Gender: M Study Time: 11:47:07AM : 1985 HT/WT: 193cm / 120kg Performing Physician: Irving Matta MD Ordering Physician: Julian Mckenzie MD Referring Physician: Gerri Peterson Fellow: Mani Colindres Procedures performed: - Left heart catheterization. - Right coronary angiography. - Left coronary angiography. IMPRESSIONS: Patent coronary arteries without evidence of significant epicardial disease Patient had radial artery spasm and short arch with tortuosity whichmade engagement difficult, used XB 3 guide to engage LM LVEDP 22 RECOMMENDATIONS: Radial hemostasis-TR band Findings discussed with consults team INDICATIONS: Pre-op eval for liver transplant PROCEDURE IN DETAIL: Study status: Cardiac cath: elective. Consent:The risks, benefits, and alternatives to the procedure and sedation were explained to the patient and informed consent was obtained.Location: Catheterization laboratory. PROCEDURE: 1. Initial setup. The patient was brought to the laboratory in a fasting state. Surface ECG leads, blood pressure measurements, and pulse oximetric signals were monitored. 2. Skin preparation. The planned puncture sites were prepped and drapedin the usual sterile manner. 3. Right radial artery access. A [id number] Glidesheath - Slender - .021sheath was advanced into the vessel. 4. Left heart catheterization was performed. The catheter was advanced across the aortic valve under fluoroscopic guidance. 5. Selective right coronary angiography was performed. A 6f JR 4catheter was introduced. Contrast was injected. Images were obtained using multiple projections. 6. Selective left coronary angiography was performed. 7. The catheter was exchanged. 8. Right radial artery hemostasis was obtained. The sheath was removed. Vessel closure was achieved with a REG TR Band Reg device. 9. Sedation. The procedure was performed using moderate (conscious)sedation was administered under my personal supervision. A trained, dedicated,and qualified observer monitored the patient. The following parameterswere monitored: oxygen saturation, heart rate, blood pressure, respiratory rate, adequacy of pulmonary ventilation, and response to care.Sedation and monitoring were provided for greater than 15 minutes. STUDY COMPLETION: The patient tolerated the procedure well. There wereno complications. Contrast: Omnipaque 350 25ml (total dose). [id number] 125ml (wasted). Radiation: Fluoroscopy time: 15min. Total time: 15min. Total air KERMA: 722mGy. CORONARY ARTERIES: The coronary circulation is right dominant. The left main bifurcates normally, giving rise to the LAD and the left circumflex. The leftanterior descending gives rise to 3 diagonals and 4 septals. The left circumflex gives rise to 2 obtuse marginals and no posterolaterals. The rightcoronary gives rise to the posterior descending artery, 2 RV marginals, and 2 posterolaterals. Left main: The left main is patent. LAD: The LAD is patent. 1st diagonal: The D1 is patent. Left circumflex: The left circumflex is patent. 1st obtuse marginal: The OM1 is patent. 2nd obtuse marginal: The OM2 is patent. Right coronary: The RCA is patent. Right posterior descending: The RPDA is patent. 1st right posterolateral: The RPL1 is patent. Hemodynamics: Circulatory function: + + + !Stage description !Condition 1 - ! + + + !LV pressure s/d, ed !112, dP/vp=0558pd Hg/s! + + + !Aortic pressure s/d (m)!106/58 (75) ! + + + ATTESTATION: Dr. Matta was present for the entire procedure. Dr. Jay Quan wasthe initial author of this report. Prepared and electronically signed by Irving Matta MD [id number]:50 [place] [id number] Final Result Performing Organization Address [facility] Co de Phone Number RADNET * Transfuse Fresh Frozen Plasma Transfusion Rate: Per dept routine (10/14/2024 2:08 PM EDT) Eleazar Nguyễn MD NURSING TREATMENT ORDER PAL - BLOOD ADMIN Final Result Performing Organization Address [facility] Co de Phone Number EXTERNAL * Transfuse Fresh Frozen Plasma Transfusion Rate: Per dept routine, 1 Units (10/14/2024 2:08 PM EDT) Eleazar Nguyễn MD NURSING TREATMENT ORDER PAL - BLOOD ADMIN Final Result Performing Organization Address [facility] de Phone Number EXTERNAL * Transfuse Platelets Transfusion Rate: Per dept routine (10/14/2024 12:43 PM EDT) Eleazar Nguyễn MD NURSING TREATMENT ORDER PAL - BLOOD ADMIN Final Result Performing Organization Address [facility] de Phone Number EXTERNAL * Transfuse Platelets Transfusion Rate: Per dept routine, 1 Units (10/14/2024 12:43 PM EDT) Eleazar Nguyễn MD NURSING TREATMENT ORDER PAL - BLOOD ADMIN Final Result Performing Organization Address City/[facility] Co de Phone Number EXTERNAL * Antibody Screen (10/14/2024 8:21 AM EDT) [facility] Antibody Screen Negative 10/14/2024 9:11 AM EDT [facility] Blood 10/14/2024 8:21 AM EDT 10/14/2024 8:33 AM EDT Narrative [facility] - 10/14/2024 9:26 AM EDT Testing performed by [facility] Transfusion Service Eleazar Nguyễn MD BLOOD BANK TEST ORDERAB LES Final Result [facility] [address] * ABO/Rh (10/14/2024 8:21 AM EDT) ABO Grouping O 10/14/2024 8:55 AM EDT [facility] Rh Type Positive 10/14/2024 8:55 AM EDT [facility] Blood 10/14/2024 8:21 AM EDT 10/14/2024 8:33 AM EDT us Eleazar Nguyễn MD BLOOD BANK TEST ORDERAB LES Final Result Performing Organization Address [facility] Co de Phone Number [facility] [address] * (ABNORMAL) Protime-INR (10/14/2024 2:53 AM EDT) Protime 23.8(H) 12.1 - 15.1 seconds 10/14/2024 4:34 AM EDT [facility] INR 2.1(H) 0.9 - 1.1 10/14/2024 4:34 AM EDT [facility] Comment: RECOMMENDED THERAPEUTIC RANGES USING INR : Stable oral anticoagulant therapy: 2.0 - 3.0 Mechanical prosthetic heart valve: 2.5 - 3.5 Recurrent acute myocardial infarction: 2.5 - 3.5 Plasma 10/14/2024 2:53 AM EDT 10/14/2024 4:16 AM EDT Eileen Schroeder MD, PhD LAB BLOOD ORDERABLES Final Result Performing Organization Address City/[facility]/ZIP Co de Phone Number [facility] [address] * (ABNORMAL) Hepatic Function Panel (10/14/2024 2:53 AM EDT) Total Bilirubin 7.2(H) 0.0 - 1.5 mg/dL 10/14/2024 4:45 AM EDT [facility] Bilirubin, Direct 3.86(H) 0.00 - 0.40 mg/dL 10/14/2024 4:45 AM EDT [facility] AST 41(H) 13 - 39 U/L 10/14/2024 4:45 AM EDT [facility] ALT 22 7 - 52 U/L 10/14/2024 4:45 AM EDT [facility] Alkaline Phosphatase 119 36 - 125 U/L 10/14/2024 4:45 AM EDT [facility] Total Protein 4.6(L) 6.4 - 8.9 g/dL 10/14/2024 4:45 AM EDT [facility] Albumin 3.3(L) 3.5 - 5.7 g/dL 10/14/2024 4:45 AM EDT [facility] Bilirubin, Indirect 3.34(H) 0.00 - 1.10 mg/dL 10/14/2024 4:45 AM EDT [facility] Plasma 10/14/2024 2:53 AM EDT 10/14/2024 4:16 AM EDT Eileen Schroeder MD, PhD LAB BLOOD ORDERABLES Final Result Performing Organization Address [facility] Co de Phone Number [facility] [address] [facility]. [address] * Magnesium (10/14/2024 2:53 AM EDT) Magnesium 1.9 1.5 - 2.5 mg/dL 10/14/2024 4:45 AM EDT [facility] Plasma 10/14/2024 2:53 AM EDT 10/14/2024 4:16 AM EDT Eileen Schroeder MD, PhD LAB BLOOD ORDERABLES Final Result Performing Organization Address City/[facility] Co de Phone Number [facility] [address] [facility]. [place] [id number] * (ABNORMAL) Renal Function Panel w/EGFR (10/14/2024 2:53 AM EDT) Sodium 136 133 - 146 mmol/L 10/14/2024 4:45 AM EDT [facility] Potassium 3.5 3.5 - 5.3 mmol/L 10/14/2024 4:45 AM EDT [facility] Chloride 107 98 - 110 mmol/L 10/14/2024 4:45 AM EDT [facility] CO2 16(L) 21 - 33 mmol/L 10/14/2024 4:45 AM EDT [facility] Anion Gap 13 3 - 16 mmol/L 10/14/2024 4:45 AM EDT [facility] BUN 55(H) 7 - 25 mg/dL 10/14/2024 4:45 AM EDT [facility] Creatinine 3.01(H) 0.60 - 1.30 mg/dL 10/14/2024 4:45 AM EDT [facility] Glucose 95 70 - 100 mg/dL 10/14/2024 4:45 AM EDT [facility] Calcium 8.5(L) 8.6 - 10.3 mg/dL 10/14/2024 4:45 AM EDT [facility] Phosphorus 4.4 2.1 - 4.7 mg/dL 10/14/2024 4:45 AM EDT [facility] Albumin 3.3(L) 3.5 - 5.7 g/dL 10/14/2024 4:45 AM EDT [facility] Osmolality, Calculated 297 278 - 305 mOsm/kg 10/14/2024 4:45 AM EDT [facility] EGFR 26 10/14/2024 4:45 AM EDT [facility] Comment:As of 2021, the estimated [...] Reference: Luis Eduardo C, Talia M, Olivia GARCIA, Emerita ND, Madelyn CA, Felicia LA, et al. A Unifying Approach for GFR Estimation: Recommendations of the NKF-ASN Task Force on Reassessing the inclusion of Race in Diagnosing Kidney Disease. Am J Kidney Dis. 2020. Plasma 10/14/2024 2:53 AM EDT 10/14/2024 4:16 AM EDT us Eileen Schroeder MD, PhD LAB BLOOD ORDERABLES Final Result [facility] [address] [place] [address], [facility] * (ABNORMAL) CBC (10/14/2024 2:53 AM EDT) WBC 5.5 3.8 - 10.8 10E3/uL 10/14/2024 5:00 AM EDT [facility] RBC 2.09(L) 4.20 - 5.80 10E6/uL 10/14/2024 5:00 AM EDT [facility] Hemoglobin 7.6(L) 13.2 - 17.1 g/dL 10/14/2024 5:00 AM EDT [facility] Hematocrit 21.3(L) 38.5 - 50.0 % 10/14/2024 5:00 AM EDT [facility] MCV 101.7(H) 80.0 - 100.0 fL 10/14/2024 5:00 AM EDT [facility] MCH 36.3(H) 27.0 - 33.0 pg 10/14/2024 5:00 AM EDT [facility] MCHC 35.7 32.0 - 36.0 g/dL 10/14/2024 5:00 AM EDT [facility] RDW 17.6(H) 11.0 - 15.0 % 10/14/2024 5:00 AM EDT [facility] Platelets 35(L) 140 - 400 10E3/uL 10/14/2024 5:00 AM EDT [facility] Comment: Specimen checked for clots. None detected. Slide Reviewed for PLT Clumps. None Seen. MPV 8.5 7.5 - 11.5 fL 10/14/2024 5:00 AM EDT [facility] Whole Blood 10/14/2024 2:53 AM EDT 10/14/2024 4:17 AM EDT us Eileen Schroeder MD, PhD LAB BLOOD ORDERABLES Final Result [facility] [address] [place] [address], [facility] * Cardiac Cath Documents Scan (10/14/2024 2:06 AM EDT) us Scanning Uchhim SCAN DOCS - NO RESULTS Final Res ult * MRI Abdomen W and WO contrast (10/13/2024 11:49 PM EDT) Anatomical Region Laterality Modality Abdomen Magnetic Resonan ce 10/13/2024 11:3 2 PM EDT Impressions 10/14/2024 12:02 PM EDT IMPRESSION: 1. Cirrhosis and sequela of portal hypertension including large volume ascites, splenomegaly, and varices. No suspicious hepatic lesions. 2. Thickening/edema of the stomach, small bowel, and colon, likely related to portal hypertension. 3. Ablated left renal lesion without evidence of local recurrence. Report Verified by: Alberto Rodriguez MD at 10/14/2024 12:02 PM EDT Narrative 10/14/2024 12:02 PM EDT EXAM: MRI ABDOMEN W AND WO CONTRAST CLINICAL INDICATION: Liver lesion, < 1cm, chronic liver disease TECHNIQUE: Multisequence, multiplanar MR imaging of the abdomen with and without contrast. CONTRAST: 10 mL of GADOBUTROL 1 MMOL/ML INTRAVENOUS SYRINGE ([facility]) administered intravenously COMPARISON: CT 09/03/2024. Ultrasound 10/07/2024. Outside CT report dated 03/07/2023.. FINDINGS: Lower Chest: Bandlike signal changes in the left lower lobe, likely atelectasis/scarring. No layering pleural effusion. Liver: Cirrhotic liver morphology. Focal metallic artifact in the right hepatic lobe related to prior embolization material. Biliary Tree: Gallbladder is nondistended with mild wall thickening, similar to prior. Previously visualized stones are not well seen on the current exam. No biliary ductal dilation. Spleen: Enlarged. Pancreas: Normal signal. Main duct is non-dilated. Adrenal Glands: Normal Kidneys/Ureters: Symmetric renal size and enhancement. Along the left interpolar kidney laterally is a lesion which demonstrates heterogeneous T1 and T2 hyperintense signal and demonstrates macroscopic fat. There is intrinsic T1 hyperintense signal likely related to coagulation/blood products. Subtraction imaging demonstrates no convincing nodular enhancement. This measures approximately 3.8 x 3.3 cm (series 8 image 49). A few simple right renal cysts are present. No collecting system dilation. Gastrointestinal Tract: Bowel wall thickening/edema of the stomach and included portions of the small bowel and proximal colon. Small sliding-type hiatal hernia. Lymphatics: No abdominal lymphadenopathy. Vasculature: Large recanalized umbilical vein. There are numerous collateral vessels bordering the left portal vein and the falciform ligament fissure. Lower esophageal and proximal gastric varices are present. Abdominal aorta is normal in caliber. Peritoneum/Retroperitoneum: Large volume of ascites. Small amount of ascites is loculated within the posterior mediastinum adjacent to the esophagus. No loculated collection in the abdomen. Abdominal Wall/Soft Tissues: Mild diffuse body wall edema. Osseous Structures: No acute or suspicious osseous findings. Procedure Note Alberto Rodriguez MD - 10/14/2024 EXAM: MRI ABDOMEN W AND WO CONTRAST CLINICAL INDICATION: Liver lesion, < 1cm, chronic liver disease TECHNIQUE: Multisequence, multiplanar MR imaging of the abdomen with andwithout contrast. CONTRAST: 10 mL of GADOBUTROL 1 MMOL/ML INTRAVENOUS SYRINGE ([facility])administered intravenously COMPARISON: CT 09/03/2024. Ultrasound 10/07/2024. Outside CT report dated1.. FINDINGS: Lower Chest: Bandlike signal changes in the left lower lobe, likelyatelectasis/scarring. No layering pleural effusion. Liver: Cirrhotic liver morphology. Focal metallic artifact in the righthepatic lobe related to prior embolization material. Biliary Tree: Gallbladder is nondistended with mild wall thickening,similar to prior. Previously visualized stones are not well seen on thecurrent exam. No biliary ductal dilation. Spleen: Enlarged. Pancreas: Normal signal. Main duct is non-dilated. Adrenal Glands: Normal Kidneys/Ureters: Symmetric renal size and enhancement. Along the leftinterpolar kidney laterally is a lesion which demonstrates heterogeneousT1 and T2 hyperintense signal and demonstrates macroscopic fat. There isintrinsic T1 hyperintense signal likely related to coagulation/bloodproducts. Subtraction imaging demonstrates no convincing nodularenhancement. This measures approximately 3.8 x 3.3 cm (series 8 image 49).A few simple right renal cysts are present. No collecting systemdilation. Gastrointestinal Tract: Bowel wall thickening/edema of the stomach andincluded portions of the small bowel and proximal colon. Smallsliding-type hiatal hernia. Lymphatics: No abdominal lymphadenopathy. Vasculature: Large recanalized umbilical vein. There are numerouscollateral vessels bordering the left portal vein and the falciformligament fissure. Lower esophageal and proximal gastric varices arepresent. Abdominal aorta is normal in caliber. Peritoneum/Retroperitoneum: Large volume of ascites. Small amount ofascites is loculated within the posterior mediastinum adjacent to theesophagus. No loculated collection in the abdomen. Abdominal Wall/Soft Tissues: Mild diffuse body wall edema. Osseous Structures: No acute or suspicious osseous findings. IMPRESSION: 1. Cirrhosis and sequela of portal hypertension including large volumeascites, splenomegaly, and varices. No suspicious hepatic lesions. 2. Thickening/edema of the stomach, small bowel, and colon, likelyrelated to portal hypertension. 3. Ablated left renal lesion without evidence of local recurrence. Report Verified by: Alberto Rodriguez MD at 10/14/2024 12:02 PM EDT Eileen Schroeder MD, PhD IMG MRI ORDERABLES Fi nal Result * (ABNORMAL) Protime-INR (10/13/2024 5:35 AM EDT) Protime 24.4(H) 12.1 - 15.1 seconds 10/13/2024 6:12 AM EDT [facility] INR 2.1(H) 0.9 - 1.1 10/13/2024 6:12 AM EDT [facility] Comment: RECOMMENDED THERAPEUTIC RANGES USING INR : Stable oral anticoagulant therapy: 2.0 - 3.0 Mechanical prosthetic heart valve: 2.5 - 3.5 Recurrent acute myocardial infarction: 2.5 - 3.5 Plasma 10/13/2024 5:35 AM EDT 10/13/2024 5:52 AM EDT us Eileen Schroeder MD, PhD LAB BLOOD ORDERABLES Final Result Performing Organization Address [facility] Co de Phone Number [facility] [address] [facility]. [address] * (ABNORMAL) Hepatic Function Panel (10/13/2024 5:35 AM EDT) Total Bilirubin 6.5(H) 0.0 - 1.5 mg/dL 10/13/2024 6:30 AM EDT [facility] Bilirubin, Direct 3.53(H) 0.00 - 0.40 mg/dL 10/13/2024 6:30 AM EDT [facility] AST 42(H) 13 - 39 U/L 10/13/2024 6:30 AM EDT [facility] ALT 19 7 - 52 U/L 10/13/2024 6:30 AM EDT [facility] Alkaline Phosphatase 108 36 - 125 U/L 10/13/2024 6:30 AM EDT [facility] Total Protein 4.4(L) 6.4 - 8.9 g/dL 10/13/2024 6:30 AM EDT [facility] Albumin 3.1(L) 3.5 - 5.7 g/dL 10/13/2024 6:30 AM EDT [facility] Bilirubin, Indirect 2.97(H) 0.00 - 1.10 mg/dL 10/13/2024 6:30 AM EDT [facility] Plasma 10/13/2024 5:35 AM EDT 10/13/2024 5:52 AM EDT us Eileen Schroeder MD, PhD LAB BLOOD ORDERABLES Final Result Performing Organization Address City/[facility] Co de Phone Number [facility] [address] [facility]. [address] * Magnesium (10/13/2024 5:35 AM EDT) Magnesium 2.0 1.5 - 2.5 mg/dL 10/13/2024 6:30 AM EDT [facility] Plasma 10/13/2024 5:35 AM EDT 10/13/2024 5:52 AM EDT Eileen Schroeder MD, PhD LAB BLOOD ORDERABLES Final Result [facility] [address] [place] [address], [facility] * (ABNORMAL) Renal Function Panel w/EGFR (10/13/2024 5:35 AM EDT) Sodium 134 133 - 146 mmol/L 10/13/2024 6:30 AM EDT [facility] Potassium 3.7 3.5 - 5.3 mmol/L 10/13/2024 6:30 AM EDT [facility] Chloride 109 98 - 110 mmol/L 10/13/2024 6:30 AM EDT [facility] CO2 14(L) 21 - 33 mmol/L 10/13/2024 6:30 AM EDT [facility] Anion Gap 11 3 - 16 mmol/L 10/13/2024 6:30 AM EDT [facility] BUN 54(H) 7 - 25 mg/dL 10/13/2024 6:30 AM EDT [facility] Creatinine 2.99(H) 0.60 - 1.30 mg/dL 10/13/2024 6:30 AM EDT [facility] Glucose 116(H) 70 - 100 mg/dL 10/13/2024 6:30 AM EDT [facility] Calcium 8.3(L) 8.6 - 10.3 mg/dL 10/13/2024 6:30 AM EDT [facility] Phosphorus 4.5 2.1 - 4.7 mg/dL 10/13/2024 6:30 AM EDT [facility] Albumin 3.1(L) 3.5 - 5.7 g/dL 10/13/2024 6:30 AM EDT [facility] Osmolality, Calculated 294 278 - 305 mOsm/kg 10/13/2024 6:30 AM EDT [facility] EGFR 26 10/13/2024 6:30 AM EDT [facility] Comment:As of 2021, the estimated [...] will be reported as >90mL/min/1.73m2. Reference: Luis Eduadro C, Talia M, Olivia DC, Emerita ND, Madelyn CA, Felicia LA, et al. A Unifying Approach for GFR Estimation: Recommendations of the NKF-ASN Task Force on Reassessing the inclusion of Race in Diagnosing Kidney Disease. Am J Kidney Dis. 2020. Plasma 10/13/2024 5:35 AM EDT 10/13/2024 5:52 AM EDT Eileen Schroeder MD, PhD LAB BLOOD ORDERABLES Final Result [facility] [address] * (ABNORMAL) CBC (10/13/2024 5:35 AM EDT) WBC 4.7 3.8 - 10.8 10E3/uL 10/13/2024 6:22 AM EDT [facility] RBC 2.06(L) 4.20 - 5.80 10E6/uL 10/13/2024 6:22 AM EDT [facility] Hemoglobin 7.4(L) 13.2 - 17.1 g/dL 10/13/2024 6:22 AM EDT [facility] Hematocrit 21.7(L) 38.5 - 50.0 % 10/13/2024 6:22 AM EDT [facility] MCV 105.4(H) 80.0 - 100.0 fL 10/13/2024 6:22 AM EDT [facility] MCH 35.9(H) 27.0 - 33.0 pg 10/13/2024 6:22 AM EDT [facility] MCHC 34.0 32.0 - 36.0 g/dL 10/13/2024 6:22 AM EDT [facility] RDW 18.5(H) 11.0 - 15.0 % 10/13/2024 6:22 AM EDT [facility] Platelets 35(L) 140 - 400 10E3/uL 10/13/2024 6:22 AM EDT [facility] Comment: CNV Specimen checked for clots. None detected. MPV 8.4 7.5 - 11.5 fL 10/13/2024 6:22 AM EDT [facility] Whole Blood 10/13/2024 5:35 AM EDT 10/13/2024 5:53 AM EDT us Eileen Schroeder MD, PhD LAB BLOOD ORDERABLES Final Result Performing Organization Address [facility] Co de Phone Number [facility] [address] [facility]. [address] * (ABNORMAL) Ammonia (10/13/2024 5:35 AM EDT) Ammonia 203(HH) 27 - 90 ug/dL 10/13/2024 7:16 AM EDT [facility] Comment: HEMOLYSIS EVIDENT. RESULTS MAY BE INFLUENCED. Critical Result [id number] Called to and read back by: KEY MELO RN at: 10/13/2024 07:15:55 by:NISREEN Plasma 10/13/2024 5:35 AM EDT 10/13/2024 6:19 AM EDT us Ehsaun Mays DO LAB BLOOD ORDERABLES Final Resul t Performing Organization Address [facility]/ZIP Co de Phone Number [facility] [address] [facility]. [address] * CARISA Rhythm Strip - Scan (10/12/2024 10:30 PM EDT) us Scanning Uchhim SCAN DOCS - NO RESULTS Final Res ult * (ABNORMAL) Protime-INR (10/12/2024 5:44 AM EDT) Pathologist [facility] Protime 25.7(H) 12.1 - 15.1 seconds 10/12/2024 6:12 AM EDT [facility] INR 2.3(H) 0.9 - 1.1 10/12/2024 6:12 AM EDT [facility] Comment: RECOMMENDED THERAPEUTIC RANGES USING INR : Stable oral anticoagulant therapy: 2.0 - 3.0 Mechanical prosthetic heart valve: 2.5 - 3.5 Recurrent acute myocardial infarction: 2.5 - 3.5 Plasma 10/12/2024 5:44 AM EDT 10/12/2024 5:58 AM EDT us Eileen Schroeder MD, PhD LAB BLOOD ORDERABLES Final Result [facility] [address] * (ABNORMAL) Hepatic Function Panel (10/12/2024 5:44 AM EDT) [facility] Total Bilirubin 6.5(H) 0.0 - 1.5 mg/dL 10/12/2024 6:29 AM EDT [facility] Bilirubin, Direct 3.64(H) 0.00 - 0.40 mg/dL 10/12/2024 6:29 AM EDT [facility] AST 40(H) 13 - 39 U/L 10/12/2024 6:29 AM EDT [facility] ALT 19 7 - 52 U/L 10/12/2024 6:29 AM EDT [facility] Alkaline Phosphatase 99 36 - 125 U/L 10/12/2024 6:29 AM EDT [facility] Total Protein 4.2(L) 6.4 - 8.9 g/dL 10/12/2024 6:29 AM EDT [facility] Albumin 3.1(L) 3.5 - 5.7 g/dL 10/12/2024 6:29 AM EDT [facility] Bilirubin, Indirect 2.86(H) 0.00 - 1.10 mg/dL 10/12/2024 6:29 AM EDT [facility] Plasma 10/12/2024 5:44 AM EDT 10/12/2024 5:58 AM EDT us Eileen Schroeder MD, PhD LAB BLOOD ORDERABLES Final Result Performing Organization Address City/[facility]/ZIP Co de Phone Number [facility] [address] * Magnesium (10/12/2024 5:44 AM EDT) Magnesium 1.9 1.5 - 2.5 mg/dL 10/12/2024 6:29 AM EDT [facility] Plasma 10/12/2024 5:44 AM EDT 10/12/2024 5:58 AM EDT us Eileen Schroeder MD, PhD LAB BLOOD ORDERABLES Final Result Performing Organization Address [facility] Co de Phone Number [facility] [address] * (ABNORMAL) Renal Function Panel w/EGFR (10/12/2024 5:44 AM EDT) Sodium 135 133 - 146 mmol/L 10/12/2024 6:29 AM EDT [facility] Potassium 3.7 3.5 - 5.3 mmol/L 10/12/2024 6:29 AM EDT [facility] Chloride 109 98 - 110 mmol/L 10/12/2024 6:29 AM EDT [facility] CO2 17(L) 21 - 33 mmol/L 10/12/2024 6:29 AM EDT [facility] LAB Anion Gap 9 3 - 16 mmol/L 10/12/2024 6:29 AM EDT [facility] BUN 52(H) 7 - 25 mg/dL 10/12/2024 6:29 AM EDT [facility] Creatinine 2.94(H) 0.60 - 1.30 mg/dL 10/12/2024 6:29 AM EDT [facility] Glucose 121(H) 70 - 100 mg/dL 10/12/2024 6:29 AM EDT [facility] Calcium 8.5(L) 8.6 - 10.3 mg/dL 10/12/2024 6:29 AM EDT [facility] Phosphorus 4.6 2.1 - 4.7 mg/dL 10/12/2024 6:29 AM EDT [facility] Albumin 3.1(L) 3.5 - 5.7 g/dL 10/12/2024 6:29 AM EDT [facility] Osmolality, Calculated 295 278 - 305 mOsm/kg 10/12/2024 6:29 AM EDT [facility] EGFR 27 10/12/2024 6:29 AM EDT [facility] Comment:As of 2021, the estimated [...] Disease. Am J Kidney Dis. 2020. Plasma 10/12/2024 5:44 AM EDT 10/12/2024 5:58 AM EDT us Eileen Schroeder MD, PhD LAB BLOOD ORDERABLES Final Result [facility] [address] [place], [place] [address] * (ABNORMAL) CBC (10/12/2024 5:44 AM EDT) WBC 3.3(L) 3.8 - 10.8 10E3/uL 10/12/2024 7:06 AM EDT [facility] RBC 1.95(L) 4.20 - 5.80 10E6/uL 10/12/2024 7:06 AM EDT [facility] Hemoglobin 7.2(L) 13.2 - 17.1 g/dL 10/12/2024 7:06 AM EDT [facility] Hematocrit 19.7(L) 38.5 - 50.0 % 10/12/2024 7:06 AM EDT [facility] MCV 101.2(H) 80.0 - 100.0 fL 10/12/2024 7:06 AM EDT [facility] MCH 37.0(H) 27.0 - 33.0 pg 10/12/2024 7:06 AM EDT [facility] MCHC 36.5(H) 32.0 - 36.0 g/dL 10/12/2024 7:06 AM EDT [facility] RDW 17.6(H) 11.0 - 15.0 % 10/12/2024 7:06 AM EDT [facility] Platelets 30(L) 140 - 400 10E3/uL 10/12/2024 7:06 AM EDT [facility] Comment: Specimen checked for clots. None detected. Slide Reviewed for PLT Clumps. None Seen. Platelet Estimate Decreased 10/12/2024 7:06 AM EDT [facility] MPV 8.3 7.5 - 11.5 fL 10/12/2024 7:06 AM EDT [facility] Whole Blood 10/12/2024 5:44 AM EDT 10/12/2024 5:58 AM EDT Narrative [facility] - 10/12/2024 7:06 AM EDT Peripheral blood smear was scanned per review criteria approved by the laboratory front office medical assistant. us Eileen Schroeder MD, PhD LAB BLOOD ORDERABLES Final Result [facility] [address] [id number] * CARISA Rhythm Strip - Scan (10/11/2024 10:04 PM EDT) us Scanning [facility] SCAN DOCS - NO RESULTS Final Res ult * (ABNORMAL) Protime-INR (10/11/2024 3:02 AM EDT) Protime 26.8(H) 12.1 - 15.1 seconds 10/11/2024 3:30 AM EDT [facility] INR 2.4(H) 0.9 - 1.1 10/11/2024 3:30 AM EDT [facility] Comment: RECOMMENDED THERAPEUTIC RANGES USING INR : Stable oral anticoagulant therapy: 2.0 - 3.0 Mechanical prosthetic heart valve: 2.5 - 3.5 Recurrent acute myocardial infarction: 2.5 - 3.5 Plasma 10/11/2024 3:02 AM EDT 10/11/2024 3:08 AM EDT us Eileen Schroeder MD, PhD LAB BLOOD ORDERABLES Final Result [facility] [address] [place] [address], [facility] * (ABNORMAL) Hepatic Function Panel (10/11/2024 3:02 AM EDT) Total Bilirubin 7.3(H) 0.0 - 1.5 mg/dL 10/11/2024 3:38 AM EDT [facility] Bilirubin, Direct 3.85(H) 0.00 - 0.40 mg/dL 10/11/2024 3:38 AM EDT [facility] AST 39 13 - 39 U/L 10/11/2024 3:38 AM EDT [facility] ALT 20 7 - 52 U/L 10/11/2024 3:38 AM EDT [facility] Alkaline Phosphatase 88 36 - 125 U/L 10/11/2024 3:38 AM EDT [facility] Total Protein 4.5(L) 6.4 - 8.9 g/dL 10/11/2024 3:38 AM EDT [facility] Albumin 3.3(L) 3.5 - 5.7 g/dL 10/11/2024 3:38 AM EDT [facility] Bilirubin, Indirect 3.45(H) 0.00 - 1.10 mg/dL 10/11/2024 3:38 AM EDT [facility] Plasma 10/11/2024 3:02 AM EDT 10/11/2024 3:08 AM EDT us Eileen Schroeder MD, PhD LAB BLOOD ORDERABLES Final Result [facility] [address] * Magnesium (10/11/2024 3:02 AM EDT) Magnesium 2.0 1.5 - 2.5 mg/dL 10/11/2024 3:38 AM EDT [facility] Plasma 10/11/2024 3:02 AM EDT 10/11/2024 3:08 AM EDT us Eileen Schroeder MD, PhD LAB BLOOD ORDERABLES Final Result Performing Organization Address [facility] Co de Phone Number [facility] [address] * (ABNORMAL) Renal Function Panel w/EGFR (10/11/2024 3:02 AM EDT) Sodium 134 133 - 146 mmol/L 10/11/2024 3:38 AM EDT [facility] Potassium 3.6 3.5 - 5.3 mmol/L 10/11/2024 3:38 AM EDT [facility] Chloride 108 98 - 110 mmol/L 10/11/2024 3:38 AM EDT [facility] CO2 16(L) 21 - 33 mmol/L 10/11/2024 3:38 AM EDT [facility] Anion Gap 10 3 - 16 mmol/L 10/11/2024 3:38 AM EDT [facility] BUN 49(H) 7 - 25 mg/dL 10/11/2024 3:38 AM EDT [facility] Creatinine 2.77(H) 0.60 - 1.30 mg/dL 10/11/2024 3:38 AM EDT [facility] Glucose 112(H) 70 - 100 mg/dL 10/11/2024 3:38 AM EDT [facility] Calcium 8.9 8.6 - 10.3 mg/dL 10/11/2024 3:38 AM EDT [facility] Phosphorus 3.5 2.1 - 4.7 mg/dL 10/11/2024 3:38 AM EDT [facility] Albumin 3.3(L) 3.5 - 5.7 g/dL 10/11/2024 3:38 AM EDT [facility] Osmolality, Calculated 292 278 - 305 mOsm/kg 10/11/2024 3:38 AM EDT [facility] EGFR 29 10/11/2024 3:38 AM EDT [facility] Comment:As of 2021, the estimated [...] Disease. Am J Kidney Dis. 2020. Plasma 10/11/2024 3:02 AM EDT 10/11/2024 3:08 AM EDT us Eileen Schroeder MD, PhD LAB BLOOD ORDERABLES Final Result [facility] [address] * (ABNORMAL) CBC (10/11/2024 3:02 AM EDT) WBC 4.0 3.8 - 10.8 10E3/uL 10/11/2024 3:55 AM EDT [facility] RBC 2.11(L) 4.20 - 5.80 10E6/uL 10/11/2024 3:55 AM EDT [facility] Hemoglobin 7.7(L) 13.2 - 17.1 g/dL 10/11/2024 3:55 AM EDT [facility] Hematocrit 21.2(L) 38.5 - 50.0 % 10/11/2024 3:55 AM EDT [facility] MCV 100.5(H) 80.0 - 100.0 fL 10/11/2024 3:55 AM EDT [facility] MCH 36.4(H) 27.0 - 33.0 pg 10/11/2024 3:55 AM EDT [facility] MCHC 36.2(H) 32.0 - 36.0 g/dL 10/11/2024 3:55 AM EDT [facility] RDW 17.9(H) 11.0 - 15.0 % 10/11/2024 3:55 AM EDT [facility] Platelets 32(L) 140 - 400 10E3/uL 10/11/2024 3:55 AM EDT [facility] Comment: Specimen checked for clots. None detected. Slide Reviewed for PLT Clumps. None Seen. Platelet Estimate Decreased 10/11/2024 3:55 AM EDT [facility] MPV 8.1 7.5 - 11.5 fL 10/11/2024 3:55 AM EDT [facility] Whole Blood 10/11/2024 3:02 AM EDT 10/11/2024 3:08 AM EDT Narrative [facility] - 10/11/2024 3:55 AM EDT Peripheral blood smear was scanned per review criteria approved by the laboratory front office medical assistant. us Eileen Schroeder MD, PhD LAB BLOOD ORDERABLES Final Result Performing Organization Address [facility]/State/[facility] Co de Phone Number [facility] [address] * Vancomycin, random (10/11/2024 3:02 AM EDT) Vancomycin Random 13.4 ug/mL 10/11/2024 3:37 AM EDT [facility] Comment:Reference range not established for this test. Plasma 10/11/2024 3:02 AM EDT 10/11/2024 3:08 AM EDT us Jodi FreireD LAB BLOOD ORDERABLES Final Result [facility] [address] [place] [address], [facility] * IR Paracentesis incl imaging guide (10/10/2024 3:13 PM EDT) Anatomical Region Laterality Modality Abdomen, Pelvis X-Ray Angiograph y 10/10/2024 1:42 PM EDT Impressions 10/10/2024 3:31 PM EDT IMPRESSION: 1. Successful diagnostic and therapeutic ultrasound-guided paracentesis Plan: 1. Consult IR with any increasing abdominal ascites. 2. Fluid sent to lab for fluid analysis. 3. IV albumin per primary team. Report Verified by: Bakari Wahl CNP at 10/10/2024 3:31 PM EDT Narrative 10/10/2024 3:31 PM EDT Procedure: Paracentesis, ultrasound-guided Performed on 10/10/2024 Indications: Julien is a 39 y.o. 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 Patient took prescribed lactulose and several watery bowel movements which improved his mental status initially but then he became confused again with struggle to generate sentences and complete thoughts. Of note, patient did just complete treatment for C.Diff with oral vancomycin. He does get paracenteses 2x/week with his last one being 10/03 with ~ 6000 ml removed. Cultures from OSH growing gram positives. IR consulted for diagnostic and therapeutic paracentesis. Bakari Wahl CNP, Fill Manager Procedure and Findings: The procedure was performed in the VIR suite following informed consent and a time out. 1% lidocaine local anesthesia was used. Ultrasound was used to evaluate the presence and distribution of peritoneal fluid, color doppler was used to evaluate area of percutaneous access, no major vessels noted. With the patient in the supine position, the right lower abdomen was prepped and draped in the usual sterile fashion. Using ultrasound guidance, a 10 cm, 5-F Gustesis catheter was placed into the right lower quadrant peritoneal fluid and fluid was aspirated. Approximately 8000 mL of clear yellow fluid were removed. The drainage catheter was removed and the catheter site was dressed in the usual fashion. There were no immediate complications. Procedure Note Bakari Wahl CNP - 10/10/2024 Procedure: Paracentesis, ultrasound-guided Performed on 10/10/2024 Indications: Julien is a 39 y.o. male with a PMHx of HTN, HLD,hypothyroidism, CKD, left RCC s/p ablation, and cirrhosis decompensated byesophageal/gastric varices, HRS, ascites, and hepatic encephalopathy whopresented to the hospital with confusion and lethargy. Patient tookprescribed lactulose and several watery bowel movements which improved hismental status initially but then he became confused again with struggle togenerate sentences and complete thoughts. Of note, patient did justcomplete treatment for C.Diff with oral vancomycin. He does getparacenteses 2x/week with his last one being 10/03 with ~ 6000 ml removed.Cultures from OSH growing gram positives. IR consulted for diagnostic andtherapeutic paracentesis. Bakari Wahl CNP, Fill Manager Procedure and Findings: The procedure was performed in the VIR suite following informed consentand a time out. 1% lidocaine local anesthesia was used. Ultrasound was used to evaluate the presence and distribution ofperitoneal fluid, color doppler was used to evaluate area of percutaneousaccess, no major vessels noted. With the patient in the supine position,the right lower abdomen was prepped and draped in the usual sterilefashion. Using ultrasound guidance, a 10 cm, 5-F Yueh Centesis catheter was placedinto the right lower quadrant peritoneal fluid and fluid was aspirated. Approximately 8000 mL of clear yellow fluid were removed. The drainage catheter was removed and the catheter site was dressed in theusual fashion. There were no immediate complications. IMPRESSION: 1. Successful diagnostic and therapeutic ultrasound-guided paracentesis Plan: 1. Consult IR with any increasing abdominal ascites. 2. Fluid sent to lab for fluid analysis. 3. IV albumin per primary team. Report Verified by: Bakari Wahl CNP at 10/10/2024 3:31 PM EDT Chari Vanegas MD [facility] IR ORDERABLES Final Result * Stress Testing Lab - scan (10/10/2024 3:08 PM EDT) Scanning [facility] SCAN DOCS - NO RESULTS Final Res ult * (ABNORMAL) Body fluid cell count (10/10/2024 1:51 PM EDT) Color, Fluid Yellow(A) Colorless, Pale Yellow 10/10/2024 5:29 PM EDT [facility] Clarity, Fluid Clear 10/10/2024 5:29 PM EDT [facility] Neutrophil %, Fluid 9 % 10/10/2024 5:29 PM EDT [facility] Lymphocytes %, Fluid 13 % 10/10/2024 5:29 PM EDT [facility] Mesothelial %, Fluid 6 % 10/10/2024 5:29 PM EDT [facility] Macrophage %, Fluid 72 % 10/10/2024 5:29 PM EDT [facility] RBC, Fluid 2,662 /uL 10/10/2024 4:41 PM EDT [facility] Total Nucleated Cells, Fluid 89 /uL 10/10/2024 4:41 PM EDT [facility] Comment:Total Nucleated Cell s represent WBCs and other nucleated cells in the fluid such as lining cells. Ascitic Fluid ABDOMEN / Unknown 1:51 PM EDT 10/10/2024 3:56 PM EDT Result [facility] Gerri Peterson MD BODY FLUIDS AND STOOLS ORDERABL ES Final Result Performing Organization Address [facility] de Phone Number [facility] [address] * Body Fluid Culture plus Stain (10/10/2024 1:51 PM EDT) Gram Stain Result Cytospin Results: [facility] Gram Stain Result Polymorphonuclear Leukocytes Seen; [facility] Gram Stain Result No Organisms Seen; [facility] Culture Result No Growth After 5 Days [facility] Fluid ABDOMEN / Unknown 10/10/2024 1:51 PM EDT 10/10/2024 3:56 PM EDT Result [facility] Gerri Peterson MD MICROBIOLOGY - GENERAL ORDERABL ES Final Result [facility] [address] [place] [address], [facility] * UPPER GI ENDOSCOPY (10/10/2024 11:48 AM EDT) 10/10/2024 11:4 8 AM EDT Narrative [facility] - 10/10/2024 12:34 PM EDT [id number] Procedure Date: 10/10/2024 11:48 AM Patient Name: Julien Gilbert Date of : 1985 Admit Type: Inpatient Age: 39 Gender: Male Note Status: Finalized Attending MD: Lino Soto MD, [id number] Procedure: Upper GI endoscopy Indications: Gastroesopahgeal variceal surveillance Providers: Lino Soto MD, Gerri Peterson MD (Fellow) Referring MD: Provider Not in System Medicines: Monitored Anesthesia Care Complications: No immediate complications. Procedure: Pre-Anesthesia Assessment: - Prior to the procedure, a History and Physical was performed, and patient medications and allergies were reviewed. The patient is competent. The risks and benefits of the procedure and the sedation options and risks were discussed with the patient. All questions were answered and informed consent was obtained. Patient identification and proposed procedure were verified by the physician, the nurse, the quarter section ironer and the endoscopic technician in the pre-procedure area in the procedure room. Mental Status Examination: alert and oriented. Airway Examination: normal oropharyngeal airway and neck mobility. Respiratory Examination: clear to auscultation. CV Examination: normal. Prophylactic Antibiotics: The patient does not require prophylactic antibiotics. Prior Anticoagulants: The patient has taken no anticoagulant or antiplatelet agents. ASA Grade Assessment: IV - A patient with severe systemic disease that is a constant threat to life. After reviewing the risks and benefits, the patient was deemed in satisfactory condition to undergo the procedure. The anesthesia plan was to use monitored anesthesia care (MAC). Immediately prior to administration of medications, the patient was re-assessed for adequacy to receive sedatives. The heart rate, respiratory rate, oxygen saturations, blood pressure, adequacy of pulmonary ventilation, and response to care were monitored throughout the procedure. The physical status of the patient was re-assessed after the procedure. After obtaining informed consent, the endoscope was passed under direct vision. Throughout the procedure, the patient's blood pressure, pulse, and oxygen saturations were monitored continuously. The Endoscope was introduced through the mouth, and advanced to the second part of duodenum. The upper GI endoscopy was accomplished without difficulty. The patient tolerated the procedure well. Findings: Medium sized varices with no bleeding and no stigmata of recent bleeding were found in the lower third of the esophagus. Severe portal hypertensive gastropathy was found in the stomach. There was mild bleeding from gastroscope irritation. This was easily washed off. No bleeding at the end of the procedure The examined duodenum was normal. Estimated Blood Loss: Estimated blood loss: none. Impression: - Medium sized esophageal varices with no bleeding and no stigmata of recent bleeding. - Portal hypertensive gastropathy. - Normal examined duodenum. - No specimens collected. Recommendation: - Return patient to hospital [facility] for ongoing care. - Resume previous diet. - Continue present medications. - Repeat EGD for surveillance in a year if patient does not get a liver transplant - No beta blockers due to hypotension Procedure Code(s): --- Professional --- 22258, GC, Esophagogastroduodenoscopy, flexible, transoral; diagnostic, including collection of specimen(s) by brushing or washing, when performed (separate procedure) Diagnosis Code(s): --- Professional --- I85.00, Esophageal varices without bleeding K76.6, Portal hypertension K31.89, Other diseases of stomach and duodenum CPT copyright 2022 [employer]. All rights reserved. The codes documented in this report are preliminary and upon route salesman review may be revised to meet current compliance requirements. Attending Participation: I was present and participated during the entire procedure, including non-albarado portions. Lino Soto MD Lino Soto MD 10/10/2024 12:34:37 PM This report has been signed electronically.MD Vernon Appiah MD Gerri Peterson MD 10/10/2024 12:29:47 PM Total Procedure Duration Time 0 hours 7 minutes 12 seconds Scope In: 12:10:16 PM Scope Out: 12:17:[address] [place] [address], [id number] us Provider Not In System PROCEDURE/MINOR SURGICAL ORDERABLES Final Result Performing Organization Address City/[facility] Co de Phone Number [facility] * (ABNORMAL) Protime-INR (10/10/2024 5:23 AM EDT) Protime 23.9(H) 12.1 - 15.1 seconds 10/10/2024 6:11 AM EDT [facility] INR 2.1(H) 0.9 - 1.1 10/10/2024 6:11 AM EDT [facility] Comment: RECOMMENDED THERAPEUTIC RANGES USING INR : Stable oral anticoagulant therapy: 2.0 - 3.0 Mechanical prosthetic heart valve: 2.5 - 3.5 Recurrent acute myocardial infarction: 2.5 - 3.5 Plasma 10/10/2024 5:23 AM EDT 10/10/2024 5:50 AM EDT Eileen Schroeder MD, PhD LAB BLOOD ORDERABLES Final Result Performing Organization Address City/[facility]/ZIP Co de Phone Number [facility] [address] [place] [address] [place] [address], [place] * (ABNORMAL) Hepatic Function Panel (10/10/2024 5:23 AM EDT) Total Bilirubin 8.6(H) 0.0 - 1.5 mg/dL 10/10/2024 6:21 AM EDT [facility] Bilirubin, Direct 4.65(H) 0.00 - 0.40 mg/dL 10/10/2024 6:21 AM EDT [facility] AST 40(H) 13 - 39 U/L 10/10/2024 6:21 AM EDT [facility] ALT 22 7 - 52 U/L 10/10/2024 6:21 AM EDT [facility] Alkaline Phosphatase 118 36 - 125 U/L 10/10/2024 6:21 AM EDT [facility] Total Protein 4.6(L) 6.4 - 8.9 g/dL 10/10/2024 6:21 AM EDT [facility] Albumin 3.3(L) 3.5 - 5.7 g/dL 10/10/2024 6:21 AM EDT [facility] Bilirubin, Indirect 3.95(H) 0.00 - 1.10 mg/dL 10/10/2024 6:21 AM EDT [facility] Plasma 10/10/2024 5:23 AM EDT 10/10/2024 5:50 AM EDT Eileen Schroeder MD, PhD LAB BLOOD ORDERABLES Final Result [facility] [address] * Magnesium (10/10/2024 5:23 AM EDT) Magnesium 1.9 1.5 - 2.5 mg/dL 10/10/2024 6:21 AM EDT [facility] Plasma 10/10/2024 5:23 AM EDT 10/10/2024 5:50 AM EDT Eileen Schroeder MD, PhD LAB BLOOD ORDERABLES Final Result [facility] [address] [place] [address], [facility] * (ABNORMAL) Renal Function Panel w/EGFR (10/10/2024 5:23 AM EDT) Sodium 135 133 - 146 mmol/L 10/10/2024 6:21 AM EDT [facility] Potassium 3.6 3.5 - 5.3 mmol/L 10/10/2024 6:21 AM EDT [facility] Chloride 108 98 - 110 mmol/L 10/10/2024 6:21 AM EDT [facility] CO2 17(L) 21 - 33 mmol/L 10/10/2024 6:21 AM EDT [facility] Anion Gap 10 3 - 16 mmol/L 10/10/2024 6:21 AM EDT [facility] BUN 53(H) 7 - 25 mg/dL 10/10/2024 6:21 AM EDT [facility] Creatinine 2.85(H) 0.60 - 1.30 mg/dL 10/10/2024 6:21 AM EDT [facility] Glucose 113(H) 70 - 100 mg/dL 10/10/2024 6:21 AM EDT [facility] Calcium 9.0 8.6 - 10.3 mg/dL 10/10/2024 6:21 AM EDT [facility] Phosphorus 3.3 2.1 - 4.7 mg/dL 10/10/2024 6:21 AM EDT [facility] Albumin 3.3(L) 3.5 - 5.7 g/dL 10/10/2024 6:21 AM EDT [facility] Osmolality, Calculated 295 278 - 305 mOsm/kg 10/10/2024 6:21 AM EDT [facility] EGFR 28 10/10/2024 6:21 AM EDT [facility] Comment:As of 2021, the estimated [...] Disease. Am J Kidney Dis. 2020. Plasma 10/10/2024 5:23 AM EDT 10/10/2024 5:50 AM EDT us Eileen Schroeder MD, PhD LAB BLOOD ORDERABLES Final Result [facility] [address] * (ABNORMAL) CBC (10/10/2024 5:23 AM EDT) WBC 5.1 3.8 - 10.8 10E3/uL 10/10/2024 6:14 AM EDT [facility] RBC 2.04(L) 4.20 - 5.80 10E6/uL 10/10/2024 6:14 AM EDT [facility] Hemoglobin 7.3(L) 13.2 - 17.1 g/dL 10/10/2024 6:14 AM EDT [facility] Hematocrit 20.6(L) 38.5 - 50.0 % 10/10/2024 6:14 AM EDT [facility] MCV 101.2(H) 80.0 - 100.0 fL 10/10/2024 6:14 AM EDT [facility] MCH 36.0(H) 27.0 - 33.0 pg 10/10/2024 6:14 AM EDT [facility] MCHC 35.5 32.0 - 36.0 g/dL 10/10/2024 6:14 AM EDT [facility] RDW 17.6(H) 11.0 - 15.0 % 10/10/2024 6:14 AM EDT [facility] Platelets 39(L) 140 - 400 10E3/uL 10/10/2024 6:14 AM EDT [facility] Comment: CNV Specimen checked for clots. None detected. MPV 9.8 7.5 - 11.5 fL 10/10/2024 6:14 AM EDT [facility] Whole Blood 10/10/2024 5:23 AM EDT 10/10/2024 5:51 AM EDT us Eileen Schroeder MD, PhD LAB BLOOD ORDERABLES Final Result Performing Organization Address [facility]/ZIP Co de Phone Number [facility] [address] [place] [address] * Vancomycin, random (10/10/2024 5:23 AM EDT) Vancomycin Random 16.4 ug/mL 10/10/2024 6:22 AM EDT [facility] Comment:Reference range not established for this test. Plasma 10/10/2024 5:23 AM EDT 10/10/2024 5:51 AM EDT us Jodi FreireD LAB BLOOD ORDERABLES Final Result Performing Organization Address [facility] de Phone Number [facility] [address] [place] [address] * ECHO STRESS W/ CONTRAST (10/09/2024 4:37 PM EDT) Anatomical Region Laterality Modality Chest Ultrasound 10/09/2024 2:40 PM EDT Narrative 10/09/2024 6:45 PM EDT * [facility]* [address] [place] [address] Stress Echocardiogram Patient: Julien Gilbert Room: 8142 Height: 76in MR Number: [id number] : 1985 Weight: 262lb Account: [id number] Gender: M BP: 125 / 77 Study Date: 10/09/2024 Age: 39 BSA: 2.48m^2 Referring physician: Gerri Peterson Interpreting physician: Tonya Henriquez MD FELLOW Lisa Jha MD PERFORMING Tonya Henriquez MD [employer] REFERRING Gerri Peterson ATTENDING Fouzia Rene ADMITTING Angie Blanchard Procedure:STRESS ECHO - PHARMACOLOGIC Order: Indications: Pre-Operative Clearance (Z01.818). PMH: EtOH Use Disorder. Risk factors: Hypertension. Dyslipidemia. Study data: Height: 76in. 193cm. Weight: 262lb. 118.8kg. The previous study was not available, so comparison was made to the report of 07/15/2024. Study status: Routine. Procedure: The patient arrived at the laboratory. A baseline ECG was recorded. Intravenous access was obtained. Surface ECG leads and manual cuff blood pressure measurements were monitored. A transthoracic echocardiogram was performed. Image quality was good. Scanning was performed from the parasternal, apical, and subcostal acoustic windows. Images were captured in a quad screen format that simplified data comparison. Dobutamine stress test was performed. Dobutamine was administered by intravenous infusion5 mcg/kg/min; the rate was advanced to 50 mcg/kg/min. The total dose was 40mcg/kg. Heart rate response was augmented by the addition of hand molding press operator and leg lifts. The infusion was terminated hypotension. A transthoracic stress echocardiogram was performed. Images were captured at baseline, low dose, peak dose, and recovery. Intravenous contrast agitated saline and Optison was administered. Study completion: There were no complications. Dobutamine. Stress echocardiogram. M-mode, 2D, complete spectral Doppler, and color Doppler. Birthdate: Patient birthdate: 1985. Age: Patient is 39year(s) old. Sex: gender: male. Body mass index: BMI: 31.9kg/m^2. Body surface area: BSA: 2.48m^2. Blood pressure: 125/77 Patient status: Inpatient. Study date: Study date: 10/09/2024. Study time: 02:40 PM. Location: Echo laboratory. Study Conclusions - Left ventricle: The cavity size is normal. Wall thickness was increased in a pattern of mild LVH. Systolic function is normal. The estimated ejection fraction is 60-65%. Wall motion is normal; there are no regional wall motion abnormalities. There is no evidence of a thrombus revealed by acoustic contrast opacification. - Right ventricle: Systolic function is normal by objective interpretation. TAPSE: 2.9cm.Tricuspid annular systolic velocity: 22cm/s. - Atrial septum: Agitated saline contrast study at baseline or with provocation, shows no nhnrq-hr-edcf atrial level shunt. - Pulmonary arteries: Systolic pressure was mildly increased, estimated to be atleast 32mm Hg plus the RA pressure. - Pericardium, extracardiac: Ascites is noted. - Stress ECG conclusions: There are no stress arrhythmias or conduction abnormalities. The stress ECG is nondiagnostic. - Staged echo conclusions: There is no echocardiographic evidence for stress-induced ischemia to the level of stress attained. The study is non-diagnostic. Impressions: Non-diagnostic study due to insufficient heart rate. Study terminated due to profound hypotension. Negative for evidence of ischemia at level of stress achieved. Cardiac Anatomy Left ventricle: - The cavity size is normal. Wall thickness was increased in a pattern of mild LVH. Systolic function is normal. The estimated ejection fraction is 60-65%. Wall motion is normal; there are no regional wall motion abnormalities. There is no evidence of a thrombus revealed by acoustic contrast opacification. - Left ventricular diastolic function is indeterminate. Aorta: Aortic root: The root is normal-sized. Aortic valve: - The valve is structurally normal. Cusp separation is normal. Velocity is within the normal range. There is no stenosis. There is no regurgitation. The mean systolic gradient is 5mm Hg. The peak systolic gradient is 10mm Hg. The LVOT to aortic valve VTI ratio is 0.87. The valve area is 3.2cm^2. The valve area index is 1.27cm^2/m^2. The ratio of LVOT to aortic valve peak velocity is 0.78. The valve area is 2.8cm^2. The valve area index is 1.14cm^2/m^2. The ratio of LVOT to aortic valve mean velocity is 0.93. The valve area is 3.4cm^2. The valve area index is 1.36cm^2/m^2. Mitral valve: - The valve is structurally normal. Leaflet separation is normal. Inflow velocity is within the normal range. There is no evidence for stenosis. There is mild regurgitation. The peak diastolic gradient is 4mm Hg. Left atrium: The atrium is mildly dilated. Atrial septum: - Agitated saline contrast study at baseline or with provocation, shows no ixakx-ut-ybvh atrial level shunt. Pulmonary artery: - Systolic pressure was mildly increased, estimated to be atleast 32mm Hg plus the RA pressure. Right ventricle: - The cavity size is normal. Wall thickness is normal. Systolic function is normal by objective interpretation. TAPSE: 2.9cm.Tricuspid annular systolic velocity: 22cm/s. Pulmonic valve: - The valve is structurally normal. Cusp separation is normal. Velocity is within the normal range. There is no regurgitation. The mean systolic gradient is 6mm Hg. The peak systolic gradient is 12mm Hg. Tricuspid valve: - The valve is structurally normal. Leaflet separation is normal. Inflow velocity is within the normal range. There is no evidence for stenosis. There is mild regurgitation. Right atrium: The atrium is normal in size. Atrial septum: Agitated saline contrast study at baseline or with provocation, shows no akhwl-ka-iyej atrial level shunt. Pericardium: - There is no pericardial effusion. Systemic veins: Inferior vena cava: The IVC is poorly visualized. Abdomen: Ascites is noted. Stress protocol: + +---+ + + + + !Stage !HR !BP !Symptoms ![employer]!Comments ! + +---+ + + + + !Baseline !95 !119/75 (90)!No symptoms.!Optison 1.5 ml !Agitated ! ! ! ! ! ! !Saline x2. ! + +---+ + + + + !Dobutamine 5 !98 !101/50 (67)! !Optison 1 ml ! ! !ug/kg/min ! ! ! ! ! ! + +---+ + + + + !Dobutamine 10 !101!101/42 (62)! ! ! ! !ug/kg/min ! ! ! ! ! ! + +---+ + + + + !Dobutamine 20 !117!100/37 (58)! ! ! ! !ug/kg/min ! ! ! ! ! ! + +---+ + + + + !Dobutamine 30 !127!89/37 (54) ! ! ! ! !ug/kg/min ! ! ! ! ! ! + +---+ + + + + !Dobutamine 40 !129!66/37 (47) !Moderate !Optison 2 ml ! ! !ug/kg/min ! ! !dyspnea. ! ! ! + +---+ + + + + !Recovery; 1 min!127!75/9 (45) ! ! ! ! + +---+ + + + + !Recovery; 2 min!126!71/39 (50) ! ! ! ! + +---+ + + + + !Recovery; 3 min!126!84/48 (60) ! ! ! ! + +---+ + + + + !Recovery; 4 min!120!95/41 (59) ! ! ! ! + +---+ + + + + !Recovery; 5 min!114! ! ! ! ! + +---+ + + + + !Recovery; 6 min!117! ! ! ! ! + +---+ + + + + !Recovery; 7 min!113!79/30 (46) ! ! ! ! + +---+ + + + + !Recovery; 8 min!107!93/47 (62) ! ! ! ! + +---+ + + + + !Recovery; 9 min!107! ! ! ! ! + +---+ + + + + !Recovery; 10 !107!87/46 (60) ! ! ! ! !min ! ! ! ! ! ! + +---+ + + + + !Recovery; 11 !105!94/56 (69) ! !Optison 1 ml ! ! !min ! ! ! ! ! ! + +---+ + + + + Stress results: Maximal heart rate during stress was 129bpm (72% of maximal predicted heart rate). The maximal predicted heart rate was 179bpm. The target heart rate was 152bpm. The target heart rate was achieved. The heart rate response to stress is normal. There is a normal resting blood pressure with an appropriate response to stress. The rate-pressure product for the peak heart rate and blood pressure was 30653mu Hg/min. Stress testing did not produce any symptoms suggestive of coronary artery disease. Baseline ECG: Normal sinus rhythm. No arrhythmias. LAFB. Non specific ST-T changes. Peak stress ECG: Sinus tachycardia. LAFB. Occasional PVCs. No significant ST-T changes. ECG interpretation: There are no stress arrhythmias or conduction abnormalities. The stress ECG is nondiagnostic. Baseline: Left ventricle: Cavity size is normal. Systolic function is normal. Normal wall motion; no regional wall motion abnormalities. No evidence for new regional wall motion abnormalities. Low dose: Left ventricle: Cavity size is normal. Systolic function is normal and appropriately augmented from baseline. Normal wall motion; no regional wall motion abnormalities. No evidence for new regional wall motion abnormalities. Peak stress: Left ventricle: Cavity size is normal. Systolic function is normal and appropriately augmented from baseline. Normal wall motion; no regional wall motion abnormalities. No evidence for new regional wall motion abnormalities. Recovery: Left ventricle: Cavity size is normal. Systolic function is normal. Normal wall motion; no regional wall motion abnormalities. No evidence for new regional wall motion abnormalities. Echo interpretations: There is no echocardiographic evidence for stress-induced ischemia to the level of stress attained. The study is non-diagnostic. Measurements Left ventricle Value Ref ZENA, LAX (N) 4.8 cm 4.2 - 5.8 ESD, LAX (N) 3.2 cm 2.5 - 4.0 ZENA/bsa, LAX (L) 1.9 cm/m^2 2.2 - 3.0 ESD/bsa, LAX (N) 1.3 cm/m^2 1.3 - 2.1 FS, LAX (N) 34 % 25 - 43 FS, LAX chord (N) 34 % 25 - 43 IVS, ED (H) 1.3 cm 0.6 - 1.0 ESD (N) 3.2 cm 2.5 - 4.0 ESD/bsa (N) 1.3 cm/m^2 1.3 - 2.1 FS (N) 34 % 25 - 43 PW, ED (H) 1.1 cm 0.6 - 1.0 IVS/PW, ED 1.16 --------- EDV (N) 107 ml 62 - 150 ESV (N) 40 ml 21 - 61 EF (N) 63 % 52 - 72 SV 40 ml --------- EDV/bsa (N) 43 ml/m^2 34 - 74 ESV/bsa (N) 16 ml/m^2 11 - 31 SV/bsa 16 ml/m^2 --------- SV, 1-p A2C 67 ml --------- SV/bsa, 1-p A2C 27 ml/m^2 --------- E', lat reggie, TDI (N) 10.8 cm/sec >=10.0 E/e', lat reggie, TDI (N) 10 <=13 E', med reggie, TDI (N) 7.9 cm/sec >=7.0 E/e', med reggie, TDI 13 --------- E', avg, TDI 9.4 cm/sec --------- E/e', avg, TDI (N) 11 <=14 LVOT Value Ref Diam, S 2.2 cm --------- Area 3.6 cm^2 --------- Peak yong, S 1.22 m/sec --------- Mean yong, S 0.93 m/sec --------- Peak grad, S 6 mm Hg --------- Mean grad, S 7 mm Hg --------- SV 81 ml --------- SV/bsa 32 ml/m^2 --------- Right ventricle Value Ref TAPSE, MM (N) 2.8 cm >=1.7 S' lateral (N) 25.6 cm/sec >=9.5 RVOT Value Ref Peak v, S 1.28 m/sec --------- Mean v, S 0.78 m/sec --------- Peak grad, S 7 mm Hg --------- Mean grad, S 3 mm Hg --------- Left atrium Value Ref LA ID 4.4 cm --------- SI dim, A4C 7.3 cm --------- Area ES, A4C (H) 27 cm^2 <=20 Area/bsa ES, A4C 10.84 cm^2/m^2 --------- Vol, ES, 1-p A4C (H) 82 ml 18 - 58 Vol/bsa, ES, 1-p A4C (N) 33 ml/m^2 12 - 37 Right atrium Value Ref Area, ES, A4C (N) 14 cm^2 10 - 18 Aortic valve Value Ref Peak v, S 1.6 m/sec --------- Mean v, S 1.01 m/sec --------- Mean grad, S 5 mm Hg --------- Peak grad, S 10 mm Hg --------- LVOT/AV, VTI ratio 0.87 --------- MARGARETH, VTI 3.2 cm^2 --------- MARGARETH/bsa, VTI 1.27 cm^2/m^2 --------- LVOT/AV, Vpeak ratio 0.78 --------- MARGARETH, Vmax 2.8 cm^2 --------- MARGARETH/bsa, Vmax 1.14 cm^2/m^2 --------- LVOT/AV, Vmean ratio 0.93 --------- MARGARETH, Vmean 3.4 cm^2 --------- MARGARETH/bsa, Vmean 1.36 cm^2/m^2 --------- Mitral valve Value Ref Peak E 1.05 m/sec --------- Peak A 0.93 m/sec --------- Decel slope 638.95 cm/s^2 --------- Decel time 164 ms --------- Peak grad, D 4 mm Hg --------- Peak E/A ratio 1.13 --------- Pulmonic valve Value Ref Peak v, S 1.7 m/sec --------- Mean yong, S 1.17 m/sec --------- Mean grad, S 6 mm Hg --------- Peak grad, S 12 mm Hg --------- Tricuspid valve Value Ref TR peak v (N) 2.8 m/sec <=2.8 Peak RV-RA grad, S 31 mm Hg --------- Ascending aorta Value Ref AAo AP diam, S 3.2 cm --------- AAo AP diam/bsa, S 1.3 cm/m^2 --------- Inferior vena cava Value Ref Diam (N) 1.3 cm <=2.1 Legend: (L) and (H) mayco values outside specified reference range. (N) wolff values inside specified reference range. I personally reviewed the images and agree with the interpretation of the resident. Reviewed and confirmed by Tonya Henriquez MD [id number] Procedure Note Tonya Henriquez MD - 10/09/2024 * [facility]* [address] [place] [address] Stress Echocardiogram Patient: Julien Gilbert Room: 8142 Height: 76in MR Number: [id number] : 1985 Weight: 262lb Account: [id number] Gender: M BP: 125 / 77 Study Date: 10/09/2024 Age: 39 BSA: 2.48m^2 Referring physician: Gerri Peterson Interpreting physician: Tonya Henriquez MD FELLOW Lisa Jha MD PERFORMING Tonya Henriquez MD [employer] ORDERING Gerri Peterson REFERRING Gerri Peterson ATTENDING Fouzia Rene ADMITTING Angie Blanchard Procedure:STRESS ECHO - PHARMACOLOGIC Order: Indications: Pre-Operative Clearance (Z01.818). PMH: EtOH Use Disorder. Risk factors: Hypertension. Dyslipidemia. Study data: Height: 76in. 193cm. Weight: 262lb. 118.8kg. The previousstudy was not available, so comparison was made to the report of 07/15/2024. Study status: Routine. Procedure: [facility] was recorded. Intravenous access was obtained. SurfaceECG leads and manual cuff blood pressure measurements were monitored. A transthoracic echocardiogram was performed. Image quality was good.Scanning was performed from the parasternal, apical, and subcostal acousticwindows. Images were captured in a quad screen format that simplified data comparison. Dobutamine stress test was performed. Dobutamine was administered by intravenous infusion5 mcg/kg/min; the rate was advancedto 50 mcg/kg/min. The total dose was 40mcg/kg. Heart rate response was augmented by the addition of hand molding press operator and leg lifts. The infusion was terminated hypotension. A transthoracic stress echocardiogram wasperformed. Images were captured at baseline, low dose, peak dose, and recovery. Intravenous contrast agitated saline and Optison was administered.Study completion: There were no complications. Dobutamine. Stress echocardiogram. M-mode, 2D, complete spectral Doppler, and colorDoppler. Birthdate: Patient birthdate: 1985. Age: Patient is 39year(s)old. Sex: gender: male. Body mass index: BMI: 31.9kg/m^2. Bodysurface area: BSA: 2.48m^2. Blood pressure: 125/77 Patient status: Inpatient. Study date: Study date: 10/09/2024. Study time: 02:40 PM. Location: Echo laboratory. Study Conclusions - Left ventricle: The cavity size is normal. Wall thickness was increasedin a pattern of mild LVH. Systolic function is normal. The estimatedejection fraction is 60-65%. Wall motion is normal; there are no regional wall motion abnormalities. There is no evidence of a thrombus revealed by acoustic contrast opacification. - Right ventricle: Systolic function is normal by objectiveinterpretation. TAPSE: 2.9cm.Tricuspid annular systolic velocity: 22cm/s. - Atrial septum: Agitated saline contrast study at baseline or with provocation, shows no wbkvp-ub-xjme atrial level shunt. - Pulmonary arteries: Systolic pressure was mildly increased, estimatedto be atleast 32mm Hg plus the RA pressure. - Pericardium, extracardiac: Ascites is noted. - Stress ECG conclusions: There are no stress arrhythmias or conduction abnormalities. The stress ECG is nondiagnostic. - Staged echo conclusions: There is no echocardiographic evidence for stress-induced ischemia to the level of stress attained. The study is non-diagnostic. Impressions: Non-diagnostic study due to insufficient heart rate. Study terminated due to profound hypotension. Negative for evidence of ischemiaat level of stress achieved. Cardiac Anatomy Left ventricle: - The cavity size is normal. Wall thickness was increased in a patternof mild LVH. Systolic function is normal. The estimated ejection fractionis 60-65%. Wall motion is normal; there are no regional wall motion abnormalities. There is no evidence of a thrombus revealed by acoustic contrast opacification. - Left ventricular diastolic function is indeterminate. Aorta: Aortic root: The root is normal-sized. Aortic valve: - The valve is structurally normal. Cusp separation is normal. Velocityis within the normal range. There is no stenosis. There is noregurgitation. The mean systolic gradient is 5mm Hg. The peak systolic gradient is10mm Hg. The LVOT to aortic valve VTI ratio is 0.87. The valve area is3.2cm^2. The valve area index is 1.27cm^2/m^2. The ratio of LVOT to aorticvalve peak velocity is 0.78. The valve area is 2.8cm^2. The valve area indexis 1.14cm^2/m^2. The ratio of LVOT to aortic valve mean velocity is 0.93.The valve area is 3.4cm^2. The valve area index is 1.36cm^2/m^2. Mitral valve: - The valve is structurally normal. Leaflet separation is normal. Inflow velocity is within the normal range. There is no evidence forstenosis. There is mild regurgitation. The peak diastolic gradient is 4mm Hg. Left atrium: The atrium is mildly dilated. Atrial septum: - Agitated saline contrast study at baseline or with provocation, showsno cfjlo-ib-etjv atrial level shunt. Pulmonary artery: - Systolic pressure was mildly increased, estimated to be atleast 32mmHg plus the RA pressure. Right ventricle: - The cavity size is normal. Wall thickness is normal. Systolic functionis normal by objective interpretation. TAPSE: 2.9cm.Tricuspid annular systolic velocity: 22cm/s. Pulmonic valve: - The valve is structurally normal. Cusp separation is normal. Velocityis within the normal range. There is no regurgitation. The mean systolic gradient is 6mm Hg. The peak systolic gradient is 12mm Hg. Tricuspid valve: - The valve is structurally normal. Leaflet separation is normal. Inflow velocity is within the normal range. There is no evidence forstenosis. There is mild regurgitation. Right atrium: The atrium is normal in size. Atrial septum: Agitated saline contrast study at baseline or with provocation, shows no fwfjd-cu-mvuv atrial level shunt. Pericardium: - There is no pericardial effusion. Systemic veins: Inferior vena cava: The IVC is poorly visualized. Abdomen: Ascites is noted. Stress protocol: + +---+ + + + + !Stage !HR !BP !Symptoms ![employer]!Comments! + +---+ + + + + !Baseline !95 !119/75 (90)!No symptoms.!Optison 1.5 ml !Agitated! ! ! ! ! ! !Saline x2.! + +---+ + + + + !Dobutamine 5 !98 !101/50 (67)! !Optison 1 ml! ! !ug/kg/min ! ! ! ! !! + +---+ + + + + !Dobutamine 10 !101!101/42(62)! ! ! ! !ug/kg/min ! ! ! ! !! + +---+ + + + + !Dobutamine 20 !117!100/37(58)! ! ! ! !ug/kg/min ! ! ! ! !! + +---+ + + + + !Dobutamine 30 !127!89/37 (54)! ! ! ! !ug/kg/min ! ! ! ! !! + +---+ + + + + !Dobutamine 40 !129!66/37 (47) !Moderate !Optison 2 ml! ! !ug/kg/min ! ! !dyspnea. ! !! + +---+ + + + + !Recovery; 1 min!127!75/9 (45)! ! ! ! + +---+ + + + + !Recovery; 2 min!126!71/39 (50)! ! ! ! + +---+ + + + + !Recovery; 3 min!126!84/48 (60)! ! ! ! + +---+ + + + + !Recovery; 4 min!120!95/41 (59)! ! ! ! + +---+ + + + + !Recovery; 5min!114! ! ! ! ! + +---+ + + + + !Recovery; 6min!117! ! ! ! ! + +---+ + + + + !Recovery; 7 min!113!79/30 (46)! ! ! ! + +---+ + + + + !Recovery; 8 min!107!93/47 (62)! ! ! ! + +---+ + + + + !Recovery; 9min!107! ! ! ! ! + +---+ + + + + !Recovery; 10 !107!87/46 (60)! ! ! ! !min ! ! ! ! !! + +---+ + + + + !Recovery; 11 !105!94/56 (69) ! !Optison 1 ml! ! !min ! ! ! ! !! + +---+ + + + + Stress results: Maximal heart rate during stress was 129bpm (72% of maximal predicted heart rate). The maximal predicted heart rate [id number]. The target heart rate was 152bpm. The target heart rate was achieved.The heart rate response to stress is normal. There is a normal resting blood pressure with an appropriate response to stress. The rate-pressureproduct for the peak heart rate and blood pressure was 72221yv Hg/min. Stress testing did not produce any symptoms suggestive of coronary arterydisease. Baseline ECG: Normal sinus rhythm. No arrhythmias. LAFB. Non specificST-T changes. Peak stress ECG: Sinus tachycardia. LAFB. Occasional PVCs. Nosignificant ST-T changes. ECG interpretation: There are no stress arrhythmias or conduction abnormalities. The stress ECG is nondiagnostic. Baseline: Left ventricle: Cavity size is normal. Systolic function is normal.Normal wall motion; no regional wall motion abnormalities. No evidence for new regional wall motion abnormalities. Low dose: Left ventricle: Cavity size is normal. Systolic function is normal and appropriately augmented from baseline. Normal wall motion; no regionalwall motion abnormalities. No evidence for new regional wall motion abnormalities. Peak stress: Left ventricle: Cavity size is normal. Systolic function is normal and appropriately augmented from baseline. Normal wall motion; no regionalwall motion abnormalities. No evidence for new regional wall motion abnormalities. Recovery: Left ventricle: Cavity size is normal. Systolic function is normal.Normal wall motion; no regional wall motion abnormalities. No evidence for new regional wall motion abnormalities. Echo interpretations: There is no echocardiographic evidence for stress-induced ischemia to the level of stress attained. The study is non-diagnostic. Measurements Left ventricle Value Ref ZENA, LAX (N) 4.8 cm 4.2 - 5.8 ESD, LAX (N) 3.2 cm 2.5 - 4.0 ZENA/bsa, LAX (L) 1.9 cm/m^2 2.2 - 3.0 ESD/bsa, LAX (N) 1.3 cm/m^2 1.3 - 2.1 FS, LAX (N) 34 % 25 - 43 FS, LAX chord (N) 34 % 25 - 43 IVS, ED (H) 1.3 cm 0.6 - 1.0 ESD (N) 3.2 cm 2.5 - 4.0 ESD/bsa (N) 1.3 cm/m^2 1.3 - 2.1 FS (N) 34 % 25 - 43 PW, ED (H) 1.1 cm 0.6 - 1.0 IVS/PW, ED 1.16 --------- EDV (N) 107 ml 62 - 150 ESV (N) 40 ml 21 - 61 EF (N) 63 % 52 - 72 SV 40 ml --------- EDV/bsa (N) 43 ml/m^2 34 - 74 ESV/bsa (N) 16 ml/m^2 11 - 31 SV/bsa 16 ml/m^2 --------- SV, 1-p A2C 67 ml --------- SV/bsa, 1-p A2C 27 ml/m^2 --------- E', lat reggie, TDI (N) 10.8 cm/sec >=10.0 E/e', lat reggie, TDI (N) 10 <=13 E', med reggie, TDI (N) 7.9 cm/sec >=7.0 E/e', med reggie, TDI 13 --------- E', avg, TDI 9.4 cm/sec --------- E/e', avg, TDI (N) 11 <=14 LVOT Value Ref Diam, S 2.2 cm --------- Area 3.6 cm^2 --------- Peak yong, S 1.22 m/sec --------- Mean yong, S 0.93 m/sec --------- Peak grad, S 6 mm Hg --------- Mean grad, S 7 mm Hg --------- SV 81 ml --------- SV/bsa 32 ml/m^2 --------- Right ventricle Value Ref TAPSE, MM (N) 2.8 cm >=1.7 S' lateral (N) 25.6 cm/sec >=9.5 RVOT Value Ref Peak v, S 1.28 m/sec --------- Mean v, S 0.78 m/sec --------- Peak grad, S 7 mm Hg --------- Mean grad, S 3 mm Hg --------- Left atrium Value Ref LA ID 4.4 cm --------- SI dim, A4C 7.3 cm --------- Area ES, A4C (H) 27 cm^2 <=20 Area/bsa ES, A4C 10.84 cm^2/m^2 --------- Vol, ES, 1-p A4C (H) 82 ml 18 - 58 Vol/bsa, ES, 1-p A4C (N) 33 ml/m^2 12 - 37 Right atrium Value Ref Area, ES, A4C (N) 14 cm^2 10 - 18 Aortic valve Value Ref Peak v, S 1.6 m/sec --------- Mean v, S 1.01 m/sec --------- Mean grad, S 5 mm Hg --------- Peak grad, S 10 mm Hg --------- LVOT/AV, VTI ratio 0.87 --------- MARGARETH, VTI 3.2 cm^2 --------- MARGARETH/bsa, VTI 1.27 cm^2/m^2 --------- LVOT/AV, Vpeak ratio 0.78 --------- MARGARETH, Vmax 2.8 cm^2 --------- MARGARETH/bsa, Vmax 1.14 cm^2/m^2 --------- LVOT/AV, Vmean ratio 0.93 --------- MARGARETH, Vmean 3.4 cm^2 --------- MARGARETH/bsa, Vmean 1.36 cm^2/m^2 --------- Mitral valve Value Ref Peak E 1.05 m/sec --------- Peak A 0.93 m/sec --------- Decel slope 638.95 cm/s^2 --------- Decel time 164 ms --------- Peak grad, D 4 mm Hg --------- Peak E/A ratio 1.13 --------- Pulmonic valve Value Ref Peak v, S 1.7 m/sec --------- Mean yong, S 1.17 m/sec --------- Mean grad, S 6 mm Hg --------- Peak grad, S 12 mm Hg --------- Tricuspid valve Value Ref TR peak v (N) 2.8 m/sec <=2.8 Peak RV-RA grad, S 31 mm Hg --------- Ascending aorta Value Ref AAo AP diam, S 3.2 cm --------- AAo AP diam/bsa, S 1.3 cm/m^2 --------- Inferior vena cava Value Ref Diam (N) 1.3 cm <=2.1 Legend: (L) and (H) mayco values outside specified reference range. (N) wolff values inside specified reference range. I personally reviewed the images and agree with the interpretation ofthe resident. Reviewed and confirmed by Tonya Henriquez MD [id number] us Gerri Peterson MD CV ECHO ORDERABLES Final Result * (ABNORMAL) Renal Function Panel w/EGFR, STAT (10/09/2024 1:05 PM EDT) Sodium 134 133 - 146 mmol/L 10/09/2024 2:10 PM EDT [facility] Potassium 3.7 3.5 - 5.3 mmol/L 10/09/2024 2:10 PM EDT [facility] Chloride 105 98 - 110 mmol/L 10/09/2024 2:10 PM EDT [facility] CO2 17(L) 21 - 33 mmol/L 10/09/2024 2:10 PM EDT [facility] Anion Gap 12 3 - 16 mmol/L 10/09/2024 2:10 PM EDT [facility] BUN 53(H) 7 - 25 mg/dL 10/09/2024 2:10 PM EDT [facility] Creatinine 2.89(H) 0.60 - 1.30 mg/dL 10/09/2024 2:10 PM EDT [facility] Glucose 108(H) 70 - 100 mg/dL 10/09/2024 2:10 PM EDT [facility] Calcium 9.3 8.6 - 10.3 mg/dL 10/09/2024 2:10 PM EDT [facility] Phosphorus 3.4 2.1 - 4.7 mg/dL 10/09/2024 2:10 PM EDT [facility] Albumin 3.6 3.5 - 5.7 g/dL 10/09/2024 2:10 PM EDT [facility] Osmolality, Calculated 293 278 - 305 mOsm/kg 10/09/2024 2:10 PM EDT [facility] EGFR 27 10/09/2024 2:10 PM EDT [facility] Comment:As of 2021, the estimated [...] Disease. Am J Kidney Dis. 2020. Plasma 10/09/2024 1:05 PM EDT 10/09/2024 1:22 PM EDT us Eileen Schroeder MD, PhD LAB BLOOD ORDERABLES Final Result [facility] [address] [place] [address], [facility] * (ABNORMAL) Renal Function Panel w/EGFR, STAT (10/09/2024 8:14 AM EDT) Sodium 134 133 - 146 mmol/L 10/09/2024 8:47 AM EDT [facility] Potassium 3.4(L) 3.5 - 5.3 mmol/L 10/09/2024 8:47 AM EDT [facility] Chloride 107 98 - 110 mmol/L 10/09/2024 8:47 AM EDT [facility] CO2 17(L) 21 - 33 mmol/L 10/09/2024 8:47 AM EDT [facility] Anion Gap 10 3 - 16 mmol/L 10/09/2024 8:47 AM EDT [facility] BUN 54(H) 7 - 25 mg/dL 10/09/2024 8:47 AM EDT [facility] Creatinine 3.04(H) 0.60 - 1.30 mg/dL 10/09/2024 8:47 AM EDT [facility] Glucose 124(H) 70 - 100 mg/dL 10/09/2024 8:47 AM EDT [facility] Calcium 9.0 8.6 - 10.3 mg/dL 10/09/2024 8:47 AM EDT [facility] Phosphorus 3.5 2.1 - 4.7 mg/dL 10/09/2024 8:47 AM EDT [facility] Albumin 3.4(L) 3.5 - 5.7 g/dL 10/09/2024 8:47 AM EDT [facility] Osmolality, Calculated 294 278 - 305 mOsm/kg 10/09/2024 8:47 AM EDT [facility] EGFR 26 10/09/2024 8:47 AM EDT [facility] Comment:As of 2021, the estimated [...] Disease. Am J Kidney Dis. 2020. Plasma 10/09/2024 8:14 AM EDT 10/09/2024 8:19 AM EDT us Gerri Peterson MD LAB BLOOD ORDERABLES Final Resu lt Performing Organization Address [facility]/ZIP Co de Phone Number [facility] [address] [place] [address] * Prepare RBC, leukoreduced, 1 Units (10/09/2024 6:16 AM EDT) Product Code N5742G82 [facility] Unit Number [id number] [facility] Dispense Status Presumed Transfused_PT [facility] Blood Expiration Date [id number] [facility] Coding System [id number] [facility] Eileen Schroeder MD, PhD BLOOD BANK PRODUCT OR DERABLES Final Result [facility] * (ABNORMAL) Protime-INR (10/09/2024 4:59 AM EDT) Protime 26.5(H) 12.1 - 15.1 seconds 10/09/2024 6:30 AM EDT [facility] INR 2.4(H) 0.9 - 1.1 10/09/2024 6:30 AM EDT [facility] Comment: RECOMMENDED THERAPEUTIC RANGES USING INR : Stable oral anticoagulant therapy: 2.0 - 3.0 Mechanical prosthetic heart valve: 2.5 - 3.5 Recurrent acute myocardial infarction: 2.5 - 3.5 Plasma 10/09/2024 4:59 AM EDT 10/09/2024 5:55 AM EDT Eileen Schroeder MD, PhD LAB BLOOD ORDERABLES Final Result Performing Organization Address City/[facility]/ZIP Co de Phone Number [facility] [address] [facility]. [address] * (ABNORMAL) Hepatic Function Panel (10/09/2024 4:59 AM EDT) Total Bilirubin 9.0(H) 0.0 - 1.5 mg/dL 10/09/2024 6:42 AM EDT [facility] Bilirubin, Direct 4.60(H) 0.00 - 0.40 mg/dL 10/09/2024 6:42 AM EDT [facility] AST 38 13 - 39 U/L 10/09/2024 6:42 AM EDT [facility] ALT 18 7 - 52 U/L 10/09/2024 6:42 AM EDT [facility] Alkaline Phosphatase 122 36 - 125 U/L 10/09/2024 6:42 AM EDT [facility] Total Protein 4.8(L) 6.4 - 8.9 g/dL 10/09/2024 6:42 AM EDT [facility] Albumin 3.4(L) 3.5 - 5.7 g/dL 10/09/2024 6:42 AM EDT [facility] Bilirubin, Indirect 4.40(H) 0.00 - 1.10 mg/dL 10/09/2024 6:42 AM EDT [facility] Plasma 10/09/2024 4:59 AM EDT 10/09/2024 5:57 AM EDT Eileen Schroeder MD, PhD LAB BLOOD ORDERABLES Final Result Performing Organization Address City/[facility]/ZIP Co de Phone Number [facility] [address] [facility]. [address] * Magnesium (10/09/2024 4:59 AM EDT) Magnesium 1.8 1.5 - 2.5 mg/dL 10/09/2024 6:42 AM EDT [facility] Plasma 10/09/2024 4:59 AM EDT 10/09/2024 5:57 AM EDT us Eileen Schroeder MD, PhD LAB BLOOD ORDERABLES Final Result [facility] [address] [place] [id number] * (ABNORMAL) Renal Function Panel w/EGFR (10/09/2024 4:59 AM EDT) Sodium 134 133 - 146 mmol/L 10/09/2024 6:42 AM EDT [facility] Potassium 3.3(L) 3.5 - 5.3 mmol/L 10/09/2024 6:42 AM EDT [facility] Chloride 107 98 - 110 mmol/L 10/09/2024 6:42 AM EDT [facility] CO2 16(L) 21 - 33 mmol/L 10/09/2024 6:42 AM EDT [facility] Anion Gap 11 3 - 16 mmol/L 10/09/2024 6:42 AM EDT [facility] BUN 56(H) 7 - 25 mg/dL 10/09/2024 6:42 AM EDT [facility] Creatinine 2.98(H) 0.60 - 1.30 mg/dL 10/09/2024 6:42 AM EDT [facility] Glucose 112(H) 70 - 100 mg/dL 10/09/2024 6:42 AM EDT [facility] Calcium 9.0 8.6 - 10.3 mg/dL 10/09/2024 6:42 AM EDT [facility] Phosphorus 3.5 2.1 - 4.7 mg/dL 10/09/2024 6:42 AM EDT [facility] Albumin 3.4(L) 3.5 - 5.7 g/dL 10/09/2024 6:42 AM EDT [facility] Osmolality, Calculated 294 278 - 305 mOsm/kg 10/09/2024 6:42 AM EDT [facility] EGFR 26 10/09/2024 6:42 AM EDT [facility] Comment:As of 2021, the estimated [...] Disease. Am J Kidney Dis. 2020. Plasma 10/09/2024 4:59 AM EDT 10/09/2024 5:57 AM EDT Eileen Schroeder MD, PhD LAB BLOOD ORDERABLES Final Result [facility] [address] [id number], [facility] * (ABNORMAL) CBC (10/09/2024 4:59 AM EDT) WBC 4.6 3.8 - 10.8 10E3/uL 10/09/2024 6:21 AM EDT [facility] RBC 2.17(L) 4.20 - 5.80 10E6/uL 10/09/2024 6:21 AM EDT [facility] Hemoglobin 8.0(L) 13.2 - 17.1 g/dL 10/09/2024 6:21 AM EDT [facility] Hematocrit 21.8(L) 38.5 - 50.0 % 10/09/2024 6:21 AM EDT [facility] MCV 100.5(H) 80.0 - 100.0 fL 10/09/2024 6:21 AM EDT [facility] MCH 36.7(H) 27.0 - 33.0 pg 10/09/2024 6:21 AM EDT [facility] MCHC 36.5(H) 32.0 - 36.0 g/dL 10/09/2024 6:21 AM EDT [facility] RDW 18.1(H) 11.0 - 15.0 % 10/09/2024 6:21 AM EDT [facility] Platelets 36(L) 140 - 400 10E3/uL 10/09/2024 6:21 AM EDT [facility] Comment:Specimen checked for clots. None detected. MPV 8.3 7.5 - 11.5 fL 10/09/2024 6:21 AM EDT [facility] Whole Blood 10/09/2024 4:59 AM EDT 10/09/2024 5:56 AM EDT us Eileen Schroeder MD, PhD LAB BLOOD ORDERABLES Final Result Performing Organization Address [facility]/ZIP Co de Phone Number [facility] [address] * Renal Tx Recipient (10/09/2024 4:59 AM EDT) [facility] Renal Transplant Recipient The request and specimen(s) for this test have been received and transported to the [facility] at [address] [place] [address] [facility] will report results directly to the client. 10/09/2024 7:26 AM EDT [facility] Blood 10/09/2024 4:59 AM EDT 10/09/2024 7:26 AM EDT us Aaron Gonzalez MD LAB BLOOD ORDERABLES Final Resu lt [facility] [address] * Vancomycin, random (10/09/2024 4:59 AM EDT) [facility] Vancomycin Random 11.0 ug/mL 10/09/2024 6:33 AM EDT [facility] Comment:Reference range not established for this test. Plasma 10/09/2024 4:59 AM EDT 10/09/2024 5:56 AM EDT us Jodi Ortiz PharmD LAB BLOOD ORDERABLES Final Result [facility] [address] [place] [address], [facility] * (ABNORMAL) CBC (10/08/2024 5:52 PM EDT) WBC 5.6 3.8 - 10.8 10E3/uL 10/08/2024 6:52 PM EDT [facility] RBC 2.38(L) 4.20 - 5.80 10E6/uL 10/08/2024 6:52 PM EDT [facility] Hemoglobin 8.3(L) 13.2 - 17.1 g/dL 10/08/2024 6:52 PM EDT [facility] Hematocrit 24.6(L) 38.5 - 50.0 % 10/08/2024 6:52 PM EDT [facility] MCV 103.2(H) 80.0 - 100.0 fL 10/08/2024 6:52 PM EDT [facility] MCH 34.7(H) 27.0 - 33.0 pg 10/08/2024 6:52 PM EDT [facility] MCHC 33.6 32.0 - 36.0 g/dL 10/08/2024 6:52 PM EDT [facility] RDW 18.5(H) 11.0 - 15.0 % 10/08/2024 6:52 PM EDT [facility] Platelets 39(L) 140 - 400 10E3/uL 10/08/2024 6:52 PM EDT [facility] Comment:CNV MPV 8.1 7.5 - 11.5 fL 10/08/2024 6:52 PM EDT [facility] Whole Blood 10/08/2024 5:52 PM EDT 10/08/2024 6:45 PM EDT us Eileen Schroeder MD, PhD LAB BLOOD ORDERABLES Final Result Performing Organization Address City/[facility]/ZIP Co de Phone Number [facility] [address] [place] [address], [facility] * Transfuse RBC Has consent been obtained? Yes; Transfusion Rate: Per dept routine (10/08/2024 1:17 PM EDT) us Eileen Schroeder MD, PhD NURSING TREATMENT ORD ERABLES - BLOOD ADMIN Final Result EXTERNAL * Transfuse RBC Has consent been obtained? Yes; Transfusion Rate: Per dept routine, 1 Units (10/08/2024 1:17 PM EDT) us Eileen Schroeder MD, PhD NURSING TREATMENT ORD ERABLES - BLOOD ADMIN Final Result Performing Organization Address City/[facility] Co de Phone Number EXTERNAL * (ABNORMAL) MMR(IgG) Panel (Measles, Mumps, Rubella) (10/08/2024 10:25 AM EDT) Mumps IgG Positive 10/08/2024 11:39 AM EDT [facility] MUMPS IGG NUM 99.00(H) 0.0 - 8.9 U/mL 10/08/2024 11:39 AM EDT [facility] Rubella IgG Scr Positive 10/08/2024 11:40 AM EDT [facility] RUB NUM 4.15(H) 0.00 - 0.89 INDEX 10/08/2024 11:40 AM EDT [facility] Rubeola Ab, IgG Positive 10/08/2024 11:39 AM EDT [facility] RUB IGG NUM 273.00(H) 0.00 - 13.40 U/mL 10/08/2024 11:39 AM EDT [facility] Serum 10/08/2024 10:2 5 AM EDT 10/08/2024 10:49 AM EDT Narrative [facility] - 10/08/2024 11:40 AM EDT Presence of detectable measles virus IgG antibodies. A positive result generally indicates exposure to measles virus or previous vaccination. Presence of detectable mumps virus IgG antibodies. A positive result generally indicates past exposure to mumps virus or previous vaccination. Sample is considered positive for IgG antibodies to rubella virus. Gerri Peterson MD LAB BLOOD ORDERABLES Final Resu lt Performing Organization Address [facility]/ZIP Co de Phone Number [facility] [address] [place] [address] * (ABNORMAL) Hemoglobin A1C (10/08/2024 10:25 AM EDT) Hemoglobin A1C 3.7(L) 4.0 - 5.6 % 10/09/2024 1:22 PM EDT [facility] Comment: Hemoglobin A1c Interpretation Guidelines: Normal: <5.7% Prediabetes: 5.7-6.4% Diabetes: >6.4% Diagnosis requires two independent tests unless clinical diagnosis is clear. Some clinical conditions, particularly anemias and hemoglobinopathies, may interfere with the diagnostic accuracy of hemoglobin A1c. The recommended goal for diabetic glycemic control (Hemoglobin A1c <7.0%) should be individualized based on duration of diabetes, age/life expectancy, comorbid conditions, known CVD or advanced microvascular complications, hypoglycemia unawareness, and other individual patient considerations. Whole Blood 10/08/2024 10:2 5 AM EDT 10/08/2024 10:51 AM EDT Gerri Peterson MD LAB BLOOD ORDERABLES Final Resu lt Performing Organization Address [facility] Co de Phone Number [facility] [address] [facility]. [address] * (ABNORMAL) Vitamin D 25 Hydroxy (10/08/2024 10:25 AM EDT) Vit D, 25-Hydroxy 7.1(L) 30.0 - 100.0 ng/mL 10/08/2024 11:36 AM EDT [facility] Comment: Vitamin D deficiency has been defined by the [place] [employer] (IOM) and an Endocrine Society practice guideline as a level of serum 25-OH Vitamin D less than 20 ng/mL. The Endocrine Society went on to further define Vitamin D insufficiency as a level between 21-29 ng/mL. 1) IOM. 2011 Dietary reference intakes for calcium and D. Majano D.C: The National Academies Press 2) Med [place], Tory MILLER, et al. Evaluation, treatment, and prevention of Vitamin D deficiency: an Endocrine Society clinical practice guideline. JCEM. 2010; 96):1911-30. Serum 10/08/2024 10:2 5 AM EDT 10/08/2024 10:49 AM EDT Gerri Peterson MD LAB BLOOD ORDERABLES Final Resu lt Performing Organization Address [facility] de Phone Number [facility] [address] [facility]. [address] * Iron Studies (Iron + TIBC) (10/08/2024 10:25 AM EDT) Iron 81 50 - 212 ug/dL 10/08/2024 11:23 AM EDT [facility] % Iron Saturation SEE COMMENT 15.0 - 55.0 % 10/08/2024 11:23 AM EDT [facility] Comment:Unable to calculate result because contributing result outside reportable range.. TIBC SEE COMMENT 261 - 462 ug/dL 10/08/2024 11:23 AM EDT [facility] Comment:Unable to calculate result because contributing result outside reportable range.. Serum 10/08/2024 10:2 5 AM EDT 10/08/2024 10:49 AM EDT Gerri Peterson MD LAB BLOOD ORDERABLES Final Resu lt Performing Organization Address [facility] Co de Phone Number [facility] [address] [facility]. [address] * (ABNORMAL) Ferritin (10/08/2024 10:25 AM EDT) Ferritin 706.9(H) 23.9 - 336.2 ng/mL 10/08/2024 11:35 AM EDT [facility] Serum 10/08/2024 10:2 5 AM EDT 10/08/2024 10:49 AM EDT us Gerri Peterson MD LAB BLOOD ORDERABLES Final Resu lt [facility] [address] * QuantiFERON TB2 Ag (10/08/2024 10:25 AM EDT) QuantiFERON TB2 Ag Value 0.07 10/10/2024 10:41 AM EDT [facility] Plasma 10/08/2024 10:2 5 AM EDT 10/08/2024 11:05 AM EDT us Gerri Peterson MD LAB BLOOD ORDERABLES Final Resu lt Performing Organization Address [facility]/ZIP Co de Phone Number [facility] [address] * QuantiFERON TB1 Ag (10/08/2024 10:25 AM EDT) QuantiFERON TB1 Ag Value 0.06 10/10/2024 10:41 AM EDT [facility] Plasma 10/08/2024 10:2 5 AM EDT 10/08/2024 11:05 AM EDT us Gerri Peterson MD LAB BLOOD ORDERABLES Final Resu lt Performing Organization Address City/[facility]/ZIP Co de Phone Number [facility] [address] * QuantiFERON Nil (10/08/2024 10:25 AM EDT) QuantiFERON Nil 0.06 10:41 AM EDT [facility] Plasma 10/08/2024 10:2 5 AM EDT 10/08/2024 11:05 AM EDT us Gerri Peterson MD LAB BLOOD ORDERABLES Final Resu lt [facility] [address] [place] [id number] * QuantiFERON Mitogen (10/08/2024 10:25 AM EDT) QuantiFERON Interpretation Negative Negative 10/10/2024 10:41 AM EDT [facility] Comment:Negative result geovanny cates M. tuberculosis infection is NOT likely. Negative results do not preclude tuberculosis infection (especially in immunosuppressed patients). Negative results have a TB antigen minus Nil value less than 0.35 IU/mL. In cases with high suspicion of disease, retesting or additional testing with medical evaluation may be useful. QuantiFERON Mitogen 4.87 10/10 10:41 AM EDT [facility] Plasma 10/08/2024 10:2 5 AM EDT 10/08/2024 11:05 AM EDT Narrative [facility] - 10/10/2024 10:41 AM EDT The Nil value reflects the background interferon gamma immune response of patient's blood sample. The mitogen tube serves as a control for the test. The QuantiFERON-TB Gold Plus result is determined by subtracting the Nil value from either TB antigen (Ag) tube. This test is designed to aid in the diagnosis of Mycobacterium tuberculosis infection, including Latent TB Infection (LTBI) and Tuberculosis (TB). A positive result suggests TB infection and should be followed by medical evaluation. A negative result does not preclude TB infection, especially in immunosuppressed states. Please see www.cdc.gov/tb. Gerri Peterson MD LAB BLOOD ORDERABLES Final Resu lt [facility] [address] [place], [place] [address] * Reticulocyte Count, Auto (10/08/2024 7:41 AM EDT) Retic Ct Pct 1.35 0.50 - 2.00 % 10/08/2024 9:12 AM EDT [facility] Retic Ct Abs 26,190 25,000 - 90,000 /uL 10/08/2024 9:14 AM EDT [facility] Immature Retic Fract 0.37 0.09 - 0.56 10/08/2024 9:12 AM EDT [facility] Whole Blood 10/08/2024 7:41 AM EDT 10/08/2024 8:51 AM EDT Angie Blanchard MD LAB BLOOD ORDERABLES Final Res ult Performing Organization Address [facility]/ZIP Co de Phone Number [facility] [address] * (ABNORMAL) Haptoglobin (10/08/2024 7:41 AM EDT) Haptoglobin <30(L) 44 - 215 mg/dL 10/08/2024 8:53 AM EDT [facility] Serum 10/08/2024 7:41 AM EDT 10/08/2024 7:51 AM EDT Eileen Schroeder MD, PhD LAB BLOOD ORDERABLES Final Result Performing Organization Address [facility] Co de Phone Number [facility] [address] * (ABNORMAL) CBC - Post Transfusion (10/08/2024 7:41 AM EDT) WBC 3.7(L) 3.8 - 10.8 10E3/uL 10/08/2024 8:34 AM EDT [facility] RBC 1.94(L) 4.20 - 5.80 10E6/uL 10/08/2024 8:34 AM EDT [facility] Hemoglobin 7.1(L) 13.2 - 17.1 g/dL 10/08/2024 8:34 AM EDT [facility] Hematocrit 20.0(L) 38.5 - 50.0 % 10/08/2024 8:34 AM EDT [facility] MCV 103.1(H) 80.0 - 100.0 fL 10/08/2024 8:34 AM EDT [facility] MCH 36.5(H) 27.0 - 33.0 pg 10/08/2024 8:34 AM EDT [facility] MCHC 35.4 32.0 - 36.0 g/dL 10/08/2024 8:34 AM EDT [facility] RDW 17.2(H) 11.0 - 15.0 % 10/08/2024 8:34 AM EDT [facility] Platelets 37(L) 140 - 400 10E3/uL 10/08/2024 8:34 AM EDT [facility] Comment: Specimen checked for clots. None detected. Slide Reviewed for PLT Clumps. None Seen. _Platelet Morphology Normal _Platelets Appear Decreased MPV 8.7 7.5 - 11.5 fL 10/08/2024 8:34 AM EDT [facility] Whole Blood 10/08/2024 7:41 AM EDT 10/08/2024 7:52 AM EDT [facility] - 10/08/2024 8:34 AM EDT Post-transfusion Eileen Schroeder MD, PhD LAB BLOOD ORDERABLES Final Result [facility] [address] [facility]. [address] * Antibody Screen (10/08/2024 7:41 AM EDT) Antibody Screen Negative 10/08/2024 8:26 AM EDT [facility] Blood 10/08/2024 7:41 AM EDT 10/08/2024 7:57 AM EDT [facility] - 10/08/2024 8:32 AM EDT Testing performed by [facility] Transfusion Service Eileen Schroeder MD, PhD BLOOD BANK TEST ORDER PAL Final Result [facility] [address] [facility]. [address] * ABO/Rh (10/08/2024 7:41 AM EDT) ABO Grouping O 10/08/2024 8:14 AM EDT [facility] Rh Type Positive 10/08/2024 8:14 AM EDT [facility] Blood 10/08/2024 7:41 AM EDT 10/08/2024 7:57 AM EDT Eileen Schroeder MD, PhD BLOOD BANK TEST ORDER PAL Final Result Performing Organization Address City/[facility]/ZIP Co de Phone Number [facility] [address] * (ABNORMAL) Lactate dehydrogenase (10/08/2024 5:36 AM EDT) LD 102(L) 110 - 270 U/L 10/08/2024 8:20 AM EDT [facility] Plasma 10/08/2024 5:36 AM EDT 10/08/2024 7:58 AM EDT Angie Blanchard MD LAB BLOOD ORDERABLES Final Res ult Performing Organization Address [facility] Co de Phone Number [facility] [address] [facility] * (ABNORMAL) Protime-INR (10/08/2024 5:36 AM EDT) Protime 26.9(H) 12.1 - 15.1 seconds 10/08/2024 6:11 AM EDT [facility] INR 2.4(H) 0.9 - 1.1 10/08/2024 6:11 AM EDT [facility] Comment: RECOMMENDED THERAPEUTIC RANGES USING INR : Stable oral anticoagulant therapy: 2.0 - 3.0 Mechanical prosthetic heart valve: 2.5 - 3.5 Recurrent acute myocardial infarction: 2.5 - 3.5 Plasma 10/08/2024 5:36 AM EDT 10/08/2024 5:52 AM EDT Eileen Schroeder MD, PhD LAB BLOOD ORDERABLES Final Result Performing Organization Address [facility] Co de Phone Number [facility] [address] * (ABNORMAL) Hepatic Function Panel (10/08/2024 5:36 AM EDT) Total Bilirubin 7.7(H) 0.0 - 1.5 mg/dL 10/08/2024 6:25 AM EDT [facility] Bilirubin, Direct 4.28(H) 0.00 - 0.40 mg/dL 10/08/2024 6:25 AM EDT [facility] AST 34 13 - 39 U/L 10/08/2024 6:25 AM EDT [facility] ALT 16 7 - 52 U/L 10/08/2024 6:25 AM EDT [facility] Alkaline Phosphatase 103 36 - 125 U/L 10/08/2024 6:25 AM EDT [facility] Total Protein 4.7(L) 6.4 - 8.9 g/dL 10/08/2024 6:25 AM EDT [facility] Albumin 3.5 3.5 - 5.7 g/dL 10/08/2024 6:25 AM EDT [facility] Bilirubin, Indirect 3.42(H) 0.00 - 1.10 mg/dL 10/08/2024 6:25 AM EDT [facility] Plasma 10/08/2024 5:36 AM EDT 10/08/2024 5:52 AM EDT Eileen Schroeder MD, PhD LAB BLOOD ORDERABLES Final Result Performing Organization Address [facility]/ZIP Co de Phone Number [facility] [address] [facility]. [address] * Magnesium (10/08/2024 5:36 AM EDT) Magnesium 1.9 1.5 - 2.5 mg/dL 10/08/2024 6:25 AM EDT [facility] Plasma 10/08/2024 5:36 AM EDT 10/08/2024 5:52 AM EDT Eileen Schroeder MD, PhD LAB BLOOD ORDERABLES Final Result [facility] [address] * (ABNORMAL) Renal Function Panel w/EGFR (10/08/2024 5:36 AM EDT) Sodium 135 133 - 146 mmol/L 10/08/2024 6:25 AM EDT [facility] Potassium 3.2(L) 3.5 - 5.3 mmol/L 10/08/2024 6:25 AM EDT [facility] Chloride 106 98 - 110 mmol/L 10/08/2024 6:25 AM EDT [facility] CO2 17(L) 21 - 33 mmol/L 10/08/2024 6:25 AM EDT [facility] Anion Gap 12 3 - 16 mmol/L 10/08/2024 6:25 AM EDT [facility] BUN 61(H) 7 - 25 mg/dL 10/08/2024 6:25 AM EDT [facility] Creatinine 3.10(H) 0.60 - 1.30 mg/dL 10/08/2024 6:25 AM EDT [facility] Glucose 106(H) 70 - 100 mg/dL 10/08/2024 6:25 AM EDT [facility] Calcium 9.0 8.6 - 10.3 mg/dL 10/08/2024 6:25 AM EDT [facility] Phosphorus 4.0 2.1 - 4.7 mg/dL 10/08/2024 6:25 AM EDT [facility] Albumin 3.5 3.5 - 5.7 g/dL 10/08/2024 6:25 AM EDT [facility] Osmolality, Calculated 298 278 - 305 mOsm/kg 10/08/2024 6:25 AM EDT [facility] EGFR 25 10/08/2024 6:25 AM EDT [facility] Comment:As of 2021, the estimated [...] Disease. Am J Kidney Dis. 2020. Plasma 10/08/2024 5:36 AM EDT 10/08/2024 5:52 AM EDT us Eileen Schroeder MD, PhD LAB BLOOD ORDERABLES Final Result [facility] [address] [place] [address], [facility] * (ABNORMAL) CBC (10/08/2024 5:36 AM EDT) WBC 3.2(L) 3.8 - 10.8 10E3/uL 10/08/2024 6:41 AM EDT [facility] RBC 1.86(L) 4.20 - 5.80 10E6/uL 10/08/2024 6:41 AM EDT [facility] Hemoglobin 6.9(L) 13.2 - 17.1 g/dL 10/08/2024 6:41 AM EDT [facility] Hematocrit 18.9(L) 38.5 - 50.0 % 10/08/2024 6:41 AM EDT [facility] MCV 101.6(H) 80.0 - 100.0 fL 10/08/2024 6:41 AM EDT [facility] MCH 36.9(H) 27.0 - 33.0 pg 10/08/2024 6:41 AM EDT [facility] MCHC 36.3(H) 32.0 - 36.0 g/dL 10/08/2024 6:41 AM EDT [facility] RDW 17.0(H) 11.0 - 15.0 % 10/08/2024 6:41 AM EDT [facility] Platelets 34(L) 140 - 400 10E3/uL 10/08/2024 6:41 AM EDT [facility] Comment: Specimen checked for clots. None detected. Slide Reviewed for PLT Clumps. None Seen. Platelet Estimate Decreased 10/08/2024 6:41 AM EDT [facility] MPV 8.4 7.5 - 11.5 fL 10/08/2024 6:41 AM EDT [facility] Whole Blood 10/08/2024 5:36 AM EDT 10/08/2024 5:53 AM EDT Narrative [facility] - 10/08/2024 6:41 AM EDT Peripheral blood smear was scanned per review criteria approved by the laboratory front office medical assistant. us Eileen Schroeder MD, PhD LAB BLOOD ORDERABLES Final Result [facility] [address] [facility]. [address] * Vancomycin, random (10/08/2024 5:36 AM EDT) Vancomycin Random 16.0 ug/mL 10/08/2024 6:20 AM EDT [facility] Comment:Reference range not established for this test. Plasma 10/08/2024 5:36 AM EDT 10/08/2024 5:52 AM EDT us Jodi FreireD LAB BLOOD ORDERABLES Final Result Performing Organization Address [facility]/ZIP Co de Phone Number [facility] [address] [facility]. [address] * Urine Drug Confirmation (10/07/2024 10:50 PM EDT) BARBITURATES NOT PRESENT 10/09/2024 1:33 PM EDT [facility] BENZODIAZEPINES PRESENT 1:33 PM EDT [facility] Nordiazepam 3 ng/mL 10/09/2024 1:33 PM EDT [facility] Temazepam 6 ng/mL 10/09/2024 1:33 PM EDT [facility] CANNABINOIDS NOT PRESENT 10/09/2024 1:33 PM EDT [facility] INDUSTRIAL PARAMEDIC STIMULANTS NOT PRESENT 1:33 PM EDT [facility] OPIOID ANALGESICS PRESENT 025 1:33 PM EDT [facility] Oxycodone 300 ng/mL 10/09/2024 1:33 PM EDT [facility] Oxymorphone 32 ng/mL 10/09/2024 1:33 PM EDT [facility] Tramadol >1000 ng/mL 10/09/2024 1:33 PM EDT [facility] OPIOID ANTAGONISTS NOT PRESENT 10/09 1:33 PM EDT [facility] SEDATIVES/MUSCLE RELAXANTS NOT PRESENT 10/09/2024 1:33 PM EDT [facility] TRICYCLIC ANTIDEPRESSANTS NOT PRESENT 10/09/2024 1:33 PM EDT [facility] Urine 10/07/2024 10:5 0 PM EDT 10/08/2024 3:00 AM EDT Gerri Peterson MD URINE ORDERABLES Final Result Performing Organization Address [facility] Co de Phone Number [facility] [address] [facility]. [address] * Giardia Cryptosporidium Antigens (10/07/2024 10:50 PM EDT) Cryptosporidium Ag Negative Negative 2024 7:59 AM EDT [facility] Giardia Ag Negative Negative 10/08/2024 7:59 AM EDT [facility] Comment: Detection of Giardia and Cryptosporidium antigen is more sensitive and specific than microscopy. Because antigens are shed continuously, repeat testing is rarely warranted. Feces 10/07/2024 10:5 0 PM EDT 10/08/2024 1:53 AM EDT Comment:F Bisi Hernandez DO MICROBIOLOGY - GENERAL ORDERABLE S Final Result Performing Organization Address City/[facility]/ZIP Co de Phone Number [facility] [address] [facility]. [address] * (ABNORMAL) Urine Drug Screen Reflex to Confirmation (10/07/2024 10:50 PM EDT) Amphetamine, 500 ng/mL Cutoff Negative Negative 10/08/2024 3:00 AM EDT [facility] Barbiturates UR, 300 ng/mL Cutoff Negative Negative 10/08/2024 3:00 AM EDT [facility] Buprenorphine, 5 ng/mL Cutoff Negative Negative 10/08/2024 3:00 AM EDT [facility] Benzodiazepines UR, 300 ng/mL Cutoff Negative Negative 10/08/2024 3:00 AM EDT [facility] Cocaine UR, 300 ng/mL Cutoff Negative Negative 10/08/2024 3:00 AM EDT [facility] Methadone, UR, 300 ng/mL Cutoff Negative Negative 10/08/2024 3:00 AM EDT [facility] Opiates UR, 300 ng/mL Cutoff Negative Negative 10/08/2024 3:00 AM EDT [facility] Oxycodone, 100 ng/mL Cutoff Presumptive Positive(A) Negative 10/08/2024 3:00 AM EDT [facility] Tricyclic Antidepressants, 300 ng/mL Cutoff Negative Negative 10/08/2024 3:00 AM EDT [facility] Comment:This test has been d eveloped and its performance characteristics determined by [facility] which is certified under the [...] THC UR, 50 ng/mL Cutoff Negative Negative 10/08/2024 3:00 AM EDT [facility] Comment:This is a screening method only and may be associated with false positive and/or false negative results. Results are not definitive without additional confirmatory testing by mass spectrometry. Fentanyl, 2 ng/mL Cutoff Negative Negative 10/08/2024 3:00 AM EDT [facility] Comment:This test has been d eveloped and its performance characteristics determined by [facility] which is certified under the Clinical Laboratory Improvement Amendment of 1988 (CLIA-88) to perform high complexity testing. The test has not been cleared or approved by the US Food and Drug Administration (FDA). The FDA has determined that such clearance is not necessary. The test should be used for clinical purposes and is not regarded as investigational. Urine 10/07/2024 10:5 0 PM EDT 10/08/2024 2:08 AM EDT Narrative [facility] - 10/08/2024 3:00 AM EDT CONFIRMATION TO FOLLOW us Gerri Peterson MD URINE ORDERABLES Final Result [facility] [address] [place] [address], [facility] * Comprehensive Drug Screen (10/07/2024 10:50 PM EDT) Creatinine, Ur CANCELED mg/dL 10/08/2024 7:09 AM EDT [facility] Comment:The released value 8 7.30 was canceled by YAQUELIN on 10/08/2024 07:09 BARBITURATES CANCELED [facility] Butalbital CANCELED [facility] Phenobarbital CANCELED [facility] Secobarbital CANCELED [facility] BENZODIAZEPINES CANCELED [facility] Alprazolam CANCELED [facility] Clonazepam [facility]ED [facility] Diazepam [facility]ED [facility] Alpha-Hydroxyalprazo mcknight [facility]ED [facility] Lorazepam [facility]ED [facility] Midazolam [facility]ED [facility] Nordiazepam [facility]CELED [facility] Oxazepam [facility]ELED [facility] Temazepam CANCELED [facility] CANNABINOIDS CANCELED [facility] THC-COOH CANCELED [facility] INDUSTRIAL PARAMEDIC STIMULANTS CANCELED [facility] Cocaine Metabolite(benzoylec gonine) [facility]CELED [facility] Amphetamine [facility]ELED [facility] Methamphetamine CANCELED [facility] MDA [facility]ELED [facility] MDEA [facility]ED [facility] Phencyclindine (PCP) [facility]ED [facility] OPIOID ANALGESICS [facility] Heroin Metabolite(6-RAMONA) [facility]ED [facility] Codeine [facility]ED [facility] Morphine [facility] Hydrocodone [facility]ED [facility] Hydromorphone [facility]ED [facility] Oxycodone [facility]ED [facility] Oxymorphone [facility] Meperidine [facility] Normeperidine [facility]ED [facility] Methadone [facility]ED [facility] Methadone Metabolite (EDDP) [facility] Tramadol [facility] Fentanyl [facility] Norfentanyl [facility] Sufentanil [facility] OPIOID ANTAGONISTS CANCELED [facility] Buprenorphine [facility] Norbuprenorphine [facility]ELED [facility] Naltrexone [facility] Naloxone [facility] SEDATIVES/MUSCLE RELAXANTS [facility] Carisoprodol [facility] Meprobamate [facility] TRICYCLIC ANTIDEPRESSANTS [facility] Amitriptyline [facility] Clomipramine [facility] Desipramine [facility] Doxepin [facility] Imipramine [facility] Nortriptyline [facility] Urine Creatinine CANCELED mg/dL [facility] Nitrite [facility]ELED [facility] Glutaraldehyde [facility]ED [facility] pH CANCELED 10/08/2024 7:09 AM EDT [facility] Comment:The released value 5 .6 was canceled by YAQUELIN on 10/08/2024 07:09 Specific [place] CANCELED 10/09/19 7:09 AM EDT [facility] Comment:The released value 1 .009 was canceled by MABLEE on 10/08/2024 07:09 Bleach CANCELED [facility] Pyridinium Chlorochromate [facility]ELED [facility] Urine 10/07/2024 10:5 0 PM EDT 10/08/2024 2:07 AM EDT Narrative [facility] - 10/08/2024 7:09 AM EDT See accn [id number] us Gerri Peterson MD URINE ORDERABLES Edited Result - Final [facility] [address] [place] [address], [facility] * Ova and Parasite Comprehensive w/ Giardia/Crypto (10/07/2024 10:50 PM EDT) O & P Method: Concentration and Trichrome Stain [facility] Results No Amoeba, Ova, Or Parasites Seen. -- O and P examination of additional specimens is recommended only for symptomatic patients, immunosuppressed patients or those with an appropriate travel history. [facility] Feces FECES / Unknown 10/07/2024 1 0:50 PM EDT 10/08/2024 1:53 AM EDT Comment:F Bisi Hernandez DO MICROBIOLOGY - GENERAL ORDERABLE S Final Result [facility] [address] [facility]. [place] [id number] * Enteric Pathogen Panel (10/07/2024 10:50 PM EDT) Campylobacter Group (C. ecoli, C. jejuni, C. trino) Not Detected Not Detected 10/08/2024 4:40 AM EDT [facility] Salmonella species Not Detected Not Detected 10/08/2024 4:40 AM EDT [facility] Shigella species Not Detected Not Detected 10/08/2024 4:40 AM EDT [facility] Vibrio Group (Vibrio cholerae, Vibrio parahaemolyticus) Not Detected Not Detected 10/08/2024 4:40 AM EDT [facility] Yersinia enterocolitica Not Detected Not Detected 10/08/2024 4:40 AM EDT [facility] Shiga toxin 1 Not Detected Not Detected 10/08/2024 4:40 AM EDT [facility] Shiga toxin 2 Not Detected Not Detected 10/08/2024 4:40 AM EDT [facility] Norovirus Not Detected Not Detected 10/08/2024 4:40 AM EDT [facility] Rotavirus Not Detected Not Detected 10/08/2024 4:40 AM EDT [facility] Comment: The Enteric Pathogen Panel [...] the micro laboratory. Feces FECES / Unknown 10/07/2024 1 0:50 PM EDT 10/08/2024 1:53 AM EDT Comment:F Bisi Hernandez DO BODY FLUIDS AND STOOLS ORDERABLE S Final Result Performing Organization Address City/[facility]/ZIP Co de Phone Number [facility] [address] * Hepatitis C Antibody (10/07/2024 6:38 PM EDT) HCV Ab Nonreactive Nonreactive 10/07/2024 7:56 PM EDT [facility] Comment:Health Department no tified in accordance with reportable infectious disease guidelines. Serum 10/07/2024 6:38 PM EDT 10/07/2024 6:52 PM EDT Narrative [facility] - 10/07/2024 7:56 PM EDT Antibodies to HCV not detected; does not exclude the possibility of exposure to HCV. Gerri Peterson MD LAB BLOOD ORDERABLES Final Resu lt Performing Organization Address [facility] Co de Phone Number [facility] [address] [facility]. [address] * Hepatitis B Surface Antibody, Quantitati (10/07/2024 6:38 PM EDT) Hep B S Ab Nonreactive Nonreactive 10/07/2024 8:00 PM EDT [facility] HBSAB NUMBER 7.88 0.00 - 7.99 mIU/mL 10/07/2024 8:00 PM EDT [facility] Serum 10/07/2024 6:38 PM EDT 10/07/2024 6:52 PM EDT Narrative [facility] - 10/07/2024 8:00 PM EDT Individual is considered not immune to HBV infection. Gerri Peterson MD LAB BLOOD ORDERABLES Final Resu lt Performing Organization Address City/[facility]/ZIP Co de Phone Number [facility] [address] [facility]. [address] * Hepatitis B surface antigen (10/07/2024 6:38 PM EDT) Hep B Surface Ag Nonreactive Nonreactive 10/07/2024 7:51 PM EDT [facility] Comment:Health Department no tified in accordance with reportable infectious disease guidelines. Serum 10/07/2024 6:38 PM EDT 10/07/2024 6:52 PM EDT [facility] - 10/07/2024 7:51 PM EDT Specimen is considered negative for HBsAg. Gerri Peterson MD LAB BLOOD ORDERABLES Final Resu lt Performing Organization Address City/[facility]/ZIP Co de Phone Number [facility] [address] [facility]. [address] * Hepatitis A Antibody Total (10/07/2024 6:38 PM EDT) Anti-HAV Total (IgG + IgM) Nonreactive 10/07/2024 7:53 PM EDT [facility] Serum 10/07/2024 6:38 PM EDT 10/07/2024 6:52 PM EDT Pending sale to [facility] - 10/07/2024 7:53 PM EDT HAV antibodies not detected Gerri Peterson MD LAB BLOOD ORDERABLES Final Resu lt [facility] [address] [facility]. [address] * Hepatitis A IgM (10/07/2024 6:38 PM EDT) Hep A IgM Nonreactive Nonreactive 10/07/2024 7:46 PM EDT [facility] Serum 10/07/2024 6:38 PM EDT 10/07/2024 6:52 PM EDT [facility] - 10/07/2024 7:46 PM EDT IgM anti-HAV not detected. Does not exclude the possibility of exposure to or infection with HAV. Levels of IgM anti-HAV may be below the cut-off in early infection. us Gerri Peterson MD LAB BLOOD ORDERABLES Final Resu lt [facility] [address] [place] [address], [facility] * (ABNORMAL) Lipid Profile (10/07/2024 6:37 PM EDT) Non-HDL Cholesterol, Calculated See Note 0 - 129 mg/dL 10/07/2024 7:42 PM EDT [facility] Comment: Desirable: < 130 mg/dL Above Desirable: 130-159 mg/dL Borderline High: 160-189 mg/dL High: 190-219 mg/dL Very High: > 219 mg/dL Unable to calculate result either because contributing result(s) are outside of reportable range or are not available. Cholesterol, Total <25 0 - 200 mg/dL 10/07/2024 7:42 PM EDT [facility] Triglycerides 30 10 - 149 mg/dL 10/07/2024 7:42 PM EDT [facility] HDL 4(L) 60 - 92 mg/dL 10/07/2024 7:42 PM EDT [facility] Comment: LIPID PROFILE INTERPRETATION CHOLESTEROL,TOTAL(mg/dL) DESIRABLE: < 200 BORDERLINE HIGH RISK: 200 - 239 HIGH RISK(UNDESIRABLE): =/> 240 LDL CHOLESTEROL(mg/dL) OPTIMAL: < 100 NEAR HIGH OPTIMAL: 100 - 129 BORDERLINE HIGH RISK: 130 - 159 HIGH RISK: 160 - 189 VERY HIGH RISK: =/> 190 HDL CHOLESTEROL(mg/dL) HIGH RISK(UNDESIRABLE): < 40 BORDERLINE: 40 - 59 LOW RISK (DESIRABLE): => 60 TRIGLYCERIDES (mg/dL) NORMAL(DESIRABLE): < 150 BORDERLINE HIGH RISK: 150 - 199 HIGH RISK: 200 - 499 VERY HIGH RISK: =/> 500 Based on the guidlines of the National Cholesterol Education Program (NCEP). Assumes sample obtained after a 9- to 12- hour fast. LDL Cholesterol See Note mg/dL 7:42 PM EDT [facility] Comment:Unable to calculate result either because contributing result(s) are outside of reportable range or are not available. Plasma 10/07/2024 6:37 PM EDT 10/07/2024 7:06 PM EDT Narrative [facility] - 10/07/2024 7:42 PM EDT LDL cholesterol calculated using the Friedewald equation. us Gerri Peterson MD LAB BLOOD ORDERABLES Final Resu lt [facility] [address] [place] [address], [facility] * (ABNORMAL) Alpha 1 Antitrypsin AAT Quant & Mutation (10/07/2024 6:37 PM EDT) A-1 Antitrypsin 99(L) 101 - 187 mg/dL 10/09/2024 4:28 AM EDT [facility] A-1 Antitrypsin Pheno Comment 10/10/2024 4:05 PM EDT [facility] Comment: A1A Phenotype is consistent with a heterozygous phenotype consisting of one M (normal) allele and one allele that cannot be identified at this time. The unknown allele is not consistent with Z (deficient), S (deficient), or F (deficient). MM Phenotype is considered to be normal , producing normal serum levels of lscps-7-saqqlgmg inhibitor and not associated with clinical disease. Associated A1A total serum levels in other phenotypes and their incidence in the general population are shown in the table below. Phenotype Population % function A-1-AT Conc.* Incidence % compared to MM (Typical Range) MM 86.5% 100% (96 - 189) MS 8.0% 86% (83 - 161) MZ 3.9% 61% (60 - 111) FM 0.4% 100% (93 - 191) SZ 0.3% 41% (42 - 75) SS 0.1% 64% (62 - 119) ZZ 0.05% 19% (16 - 38) FS 0.05% 70% (70 - 128) FZ Unknown 46% (44 - 88) FF Unknown Unknown *A-1-AT concentration in the homozygous MM phenotype is taken as the reference normal. Percent deficiency in each phenotype is reported relative to this reference. Ranges used to confirm phenotype. Serum 10/07/2024 6:37 PM EDT 10/10/2024 4:08 PM EDT Narrative [facility] - 10/10/2024 4:08 PM EDT PERFORMED AT: [facility] [address] [id number] PROGRAM DIRECTOR/TRAFFIC DIRECTOR: Bassam Khalil, PhD PHONE: [phone] PERFORMED AT: [facility] [address] [id number] PROGRAM DIRECTOR/TRAFFIC DIRECTOR: Mandy Abdul MD PHONE: [phone] us Gerri Peterson MD LAB BLOOD ORDERABLES Final Resu lt [facility] [address] [facility] * (ABNORMAL) CMV IgG Antibody (10/07/2024 6:37 PM EDT) CMV IgG Positive(A ) Negative 10/07/2024 8:26 PM EDT [facility] CMV IGG NUM 8.40(H) 0.00 - 0.59 U/mL 10/07/2024 8:26 PM EDT [facility] Serum 10/07/2024 6:37 PM EDT 10/07/2024 6:50 PM EDT Gerri Peterson MD LAB BLOOD ORDERABLES Final Resu lt [facility] [address] * HIV-1 and HIV-2 Antibodies w Reflex (10/07/2024 6:37 PM EDT) HIV 1+2 AB/AGN Nonreactive Nonreactive 10/07/2024 7:54 PM EDT [facility] Serum 10/07/2024 6:37 PM EDT 10/07/2024 7:06 PM EDT Narrative [facility] - 10/07/2024 7:54 PM EDT \HIVRNR Gerri Peterson MD LAB BLOOD ORDERABLES Final Resu lt [facility] [address] * TSH (Thyroid Stimulating Hormone) (10/07/2024 6:37 PM EDT) Pathologist [facility] TSH 0.81 0.45 - 4.12 uIU/mL 10/07/2024 8:17 PM EDT [facility] Serum 10/07/2024 6:37 PM EDT 10/07/2024 6:50 PM EDT Gerri Peterson MD LAB BLOOD ORDERABLES Final Resu lt Performing Organization Address [facility] Co de Phone Number [facility] [address] [facility] * Katie-Watkins virus early antigen antibody, IgG (10/07/2024 6:37 PM EDT) [facility] EBV Early Antigen Ab, IgG <9.0 0.0 - 8.9 U/mL 10/09/2024 2:16 PM EDT [facility] Comment: Negative < 9.0 Equivocal 9.0 - 10.9 Positive >10.9 Serum Frozen 10/07/2024 6:37 PM EDT 10/09/2024 3:07 PM EDT Narrative [facility] - 10/09/2024 3:07 PM EDT PERFORMED AT: [facility] [id number] PROGRAM DIRECTOR/TRAFFIC DIRECTOR: Bassam Khalil, PhD PHONE: [phone] us Gerri Peterson MD LAB BLOOD ORDERABLES Final Resu lt Performing Organization Address City/[facility]/ZIP Co de Phone Number [facility] [address] [facility] * (ABNORMAL) Varicella zoster antibody, IgG (10/07/2024 6:37 PM EDT) Pathologist [facility] Varicella IgG Positive( A) Negative S/CO 10/07/2024 8:34 PM EDT [facility] Comment:Result indicates the presence of detectable VZV IgG antibodies. A positive result is generally indicative of exposure to the pathogen or administration of specific immunoglobulins, but it is no indication of active infection or stage of disease. This test is not approved for determining vaccine-induced immunity to varicella zoster virus. VZV NUM 6.76(H) 0.00 - 0.99 S/CO 10/07/2024 8:34 PM EDT [facility] Serum 10/07/2024 6:37 PM EDT 10/07/2024 6:50 PM EDT Gerri Peterson MD LAB BLOOD ORDERABLES Final Resu lt Performing Organization Address [facility] Co de Phone Number [facility] [address] [place] [address] * Toxoplasma gondii antibody, IgG (10/07/2024 6:37 PM EDT) Toxoplasma Gondii IgG <3.0 0.0 - 7.1 IU/mL 10/09/2024 7:53 AM EDT [facility] Comment: Negative <7.2 Equivocal 7.2 - 8.7 Positive >8.7 Serum 10/07/2024 6:37 PM EDT 10/09/2024 8:07 AM EDT Narrative [facility] - 10/09/2024 8:07 AM EDT PERFORMED AT: [address] [id number] PROGRAM DIRECTOR/TRAFFIC DIRECTOR: Bassam Khalil, PhD PHONE: [phone] Gerri Peterson MD LAB BLOOD ORDERABLES Final Resu lt Performing Organization Address [facility] Co de Phone Number [facility] [address] * Syphilis Screening (Trepia) (10/07/2024 6:37 PM EDT) Treponema Pallidum Negative Negative 10/07/2024 8:27 PM EDT [facility] Comment: No serological evidence of infection with Treponema pallidum (incubating or early primary syphilis cannot be excluded). Serum 10/07/2024 6:37 PM EDT 10/07/2024 6:50 PM EDT Gerri Peterson MD LAB BLOOD ORDERABLES Final Resu lt Performing Organization Address [facility] Co de Phone Number [facility] [address] * Strongyloides Ab (10/07/2024 6:37 PM EDT) Strongyloides Ab Negative Negative 10/11/19 11:51 AM EDT [facility] Serum 10/07/2024 6:37 PM EDT 10/10/2024 12:07 PM EDT Narrative [facility] - 10/10/2024 12:07 PM EDT PERFORMED AT: [address] [id number] PROGRAM DIRECTOR/TRAFFIC DIRECTOR: Mandy Abdul MD PHONE: [phone] Gerri Peterson MD LAB BLOOD ORDERABLES Final Resu lt Performing Organization Address [facility] de Phone Number [facility] [address] * Phosphatidylethanol Confirmation, B (10/07/2024 6:37 PM EDT) PETH 16:0/18.1 (POPETH) <10 Cutoff: 10 ng/mL 10/10/2024 10:42 AM EDT [facility] Comment: Phosphatidylethanol (PEth) homologues result [...] PETH 16:0/18.2 (PLPETH) <10 Cutoff: 10 ng/mL 10/10/2024 10:42 AM EDT [facility] Comment: PEth 16:0/18:2 (PLPEth) Reference ranges are not well established PEth Interpretation Negative. 10/10 10:42 AM EDT [facility] Comment: ADDITIONAL INFORMATION This report is intended for use in clinical monitoring and management of patients. It is not intended for use in employment-related testing. This test was developed and its performance characteristics determined by [facility] in a manner consistent with CLIA requirements. This test has not been cleared or approved by the U.S. Food and Drug Administration. Test Performed by: [facility] [place] [address] Technical Service Representative: Kathy Ortiz Ph.D.; CLIA# [id number] Whole Blood 10/07/2024 6:37 PM EDT 10/10/2024 10:42 AM EDT us Gerri Peterson MD LAB BLOOD ORDERABLES Final Resu lt [facility] [address] [facility] [place] [address], [facility] * (ABNORMAL) MMR(IgG) Panel (Measles, Mumps, Rubella) (10/07/2024 6:37 PM EDT) Mumps IgG Positive 10/07/2024 8:26 PM EDT [facility] MUMPS IGG NUM 77.80(H) 0.0 - 8.9 U/mL 10/07/2024 8:26 PM EDT [facility] Rubella IgG Scr Positive 10/07/2024 8:28 PM EDT [facility] RUB NUM 3.04(H) 0.00 - 0.89 INDEX 10/07/2024 8:28 PM EDT [facility] Rubeola Ab, IgG Positive 10/07/2024 8:26 PM EDT [facility] RUB IGG NUM 192.00(H) 0.00 - 13.40 U/mL 10/07/2024 8:26 PM EDT [facility] Serum 10/07/2024 6:37 PM EDT 10/07/2024 6:50 PM EDT Narrative [facility] - 10/07/2024 8:28 PM EDT Presence of detectable measles virus IgG antibodies. A positive result generally indicates exposure to measles virus or previous vaccination. Presence of detectable mumps virus IgG antibodies. A positive result generally indicates past exposure to mumps virus or previous vaccination. Sample is considered positive for IgG antibodies to rubella virus. Gerri Peterson MD LAB BLOOD ORDERABLES Final Resu lt Performing Organization Address [facility] Co de Phone Number [facility] [address] * IgA (10/07/2024 6:37 PM EDT) IgA 227.0 70.0 - 400.0 mg/dL 10/08/2024 11:07 AM EDT [facility] Comment:Please interpret the se findings in conjunction with clinical findings, protein electrophoresis, and immunotyping/immunofixation results. Serum 10/07/2024 6:37 PM EDT 10/07/2024 6:50 PM EDT Gerri Peterson MD LAB BLOOD ORDERABLES Final Resu lt [facility] [address] * Ethanol, Serum (10/07/2024 6:37 PM EDT) Ethanol <10 0 - 10 mg/dL 10/07/2024 8:36 PM EDT [facility] Serum 10/07/2024 6:37 PM EDT 10/07/2024 6:50 PM EDT Gerri Peterson MD LAB BLOOD ORDERABLES Final Resu lt Performing Organization Address [facility]/ZIP Co de Phone Number [facility] [address] * ABO/Rh - Second (10/07/2024 6:37 PM EDT) ABO Grouping O 10/07/2024 7:16 PM EDT [facility] Rh Type Positive 10/07/2024 7:16 PM EDT [facility] Blood 10/07/2024 6:37 PM EDT 10/07/2024 6:56 PM EDT Narrative [facility] - 10/07/2024 7:18 PM EDT This is not a duplicate order. It is required that ABO be drawn twice for LIVER TRANSPLANT Gerri Peterson MD BLOOD BANK TEST ORDERABLES Denisse l Result Performing Organization Address [facility] Co de Phone Number [facility] [address] * ABO/Rh- Initial (10/07/2024 6:37 PM EDT) ABO Grouping O 10/07/2024 7:59 PM EDT [facility] Rh Type Positive 10/07/2024 7:59 PM EDT [facility] Blood 10/07/2024 6:37 PM EDT 10/07/2024 7:25 PM EDT Gerri Peterson MD BLOOD BANK TEST ORDERABLES Denisse l Result Performing Organization Address [facility]/ZIP Co de Phone Number [facility] [address] * X-ray Mandible minimum 4-views (10/07/2024 6:19 PM EDT) Anatomical Region Laterality Modality Head Radiographic Rachel ging 10/07/2024 5:49 PM EDT Impressions 10/08/2024 1:12 PM EDT IMPRESSION: 1. No acute osseous abnormality. Report Verified by: Diana Devlin MD at 10/08/2024 1:12 PM EDT Narrative 10/08/2024 1:12 PM EDT EXAM: XR MANDIBLE MINIMUM 4-VIEWS INDICATION: r/o abscess and caries COMPARISON: None. TECHNIQUE: 4 views of the mandible. FINDINGS: No displaced fracture or focal osseous lesion. No periodontal lucency or discrete dental caries. Included paranasal sinuses appear well aerated. Hardware from prior ACDF partially visualized. Procedure Note Diana Devlin MD - 10/08/2024 EXAM: XR MANDIBLE MINIMUM 4-VIEWS INDICATION: r/o abscess and caries COMPARISON: None. TECHNIQUE: 4 views of the mandible. FINDINGS: No displaced fracture or focal osseous lesion. No periodontal lucency ordiscrete dental caries. Included paranasal sinuses appear well aerated.Hardware from prior ACDF partially visualized. IMPRESSION: 1. No acute osseous abnormality. Report Verified by: Diana Devlin MD at 10/08/2024 1:12 PM EDT Gerri Petesron MD IMG DIAGNOSTIC IMAGING ORDERABL ES Final Result * US Abdomen Complete (10/07/2024 3:48 PM EDT) Anatomical Region Laterality Modality Abdomen Ultrasound 10/07/2024 2:54 PM EDT Impressions 10/07/2024 4:26 PM EDT IMPRESSION: ABDOMEN 1. Cirrhotic liver morphology. No suspicious hepatic lesion. 2. Moderate volume of ascites. 3. Splenomegaly. LIVER DOPPLER 1. Patent hepatic vasculature with normal directional flow. 2. Recanalized umbilical vein as a sequela of portal hypertension, with multiple venous collaterals bordering the falciform ligament. Findings similar to prior. Report Verified by: Alberto Rodriguez MD at 10/07/2024 4:26 PM EDT Narrative 10/07/2024 4:26 PM EDT EXAM: US ABDOMEN COMPLETE EXAM: US DUPLEX [id number] COMPLETE INDICATION: elevated bilirubin COMPARISON: Ultrasound and CT 09/03/2024. TECHNIQUE: Grayscale imaging was performed for evaluation of the liver, gallbladder, common bile duct, pancreas, spleen, and kidneys; color and spectral (duplex) Doppler analysis of the hepatic vasculature was also performed. FINDINGS: Liver: Cirrhotic liver morphology with coarsened echotexture. No focal hepatic lesion. Linear echogenic structure in the right hepatic lobe corresponds to embolization material. Multiple venous collaterals adjacent to the left falciform ligament Biliary/CBD: 4 mm. No intra or extrahepatic ductal dilatation. Gallbladder: No visualized stones, wall thickening or pericholecystic fluid. Pancreas: Obscured by overlying bowel gas. Right kidney: 11.6 cm in length. Normal parenchymal echogenicity. No hydronephrosis. Left kidney: 11.8 cm in length. Normal parenchymal echogenicity. No hydronephrosis. Spleen: 19.2 cm. Aorta and IVC: Visualized portions of the abdominal aorta are not aneurysmal. The retrohepatic IVC is color Doppler patent. Other: Moderate volume of ascites. DOPPLER: Hepatic Veins: Duplex evaluation of the hepatic vasculature demonstrates normal flow in the right, middle and left hepatic veins. Portal Veins: The right, left and main portal vein demonstrate hepatopetal flow. Recanalized umbilical vein with collateral vessels surrounding this. Hepatic Arteries: Right, main and left hepatic arteries demonstrate normal waveforms. Resistive Indices Main hepatic artery: 0.76-0.79 Right hepatic artery: 0.68-0.79 Left hepatic artery: 0.66-0.72 Procedure Note Alberto Rodriguez MD - 10/07/2024 EXAM: US ABDOMEN COMPLETE EXAM: US DUPLEX [id number] COMPLETE INDICATION: elevated bilirubin COMPARISON: Ultrasound and CT 09/03/2024. TECHNIQUE: Grayscale imaging was performed for evaluation of the liver,gallbladder, common bile duct, pancreas, spleen, and kidneys; color andspectral (duplex) Doppler analysis of the hepatic vasculature was alsoperformed. FINDINGS: Liver: Cirrhotic liver morphology with coarsened echotexture. No focalhepatic lesion. Linear echogenic structure in the right hepatic lobecorresponds to embolization material. Multiple venous collaterals adjacentto the left falciform ligament Biliary/CBD: 4 mm. No intra or extrahepatic ductal dilatation. Gallbladder: No visualized stones, wall thickening or pericholecysticfluid. Pancreas: Obscured by overlying bowel gas. Right kidney: 11.6 cm in length. Normal parenchymal echogenicity. Nohydronephrosis. Left kidney: 11.8 cm in length. Normal parenchymal echogenicity. Nohydronephrosis. Spleen: 19.2 cm. Aorta and IVC: Visualized portions of the abdominal aorta are notaneurysmal. The retrohepatic IVC is color Doppler patent. Other: Moderate volume of ascites. DOPPLER: Hepatic Veins: Duplex evaluation of the hepatic vasculature demonstratesnormal flow in the right, middle and left hepatic veins. Portal Veins: The right, left and main portal vein demonstrate hepatopetalflow. Recanalized umbilical vein with collateral vessels surroundingthis. Hepatic Arteries: Right, main and left hepatic arteries demonstrate normalwaveforms. Resistive Indices Main hepatic artery: 0.76-0.79 Right hepatic artery: 0.68-0.79 Left hepatic artery: 0.66-0.72 IMPRESSION: ABDOMEN 1. Cirrhotic liver morphology. No suspicious hepatic lesion. 2. Moderate volume of ascites. 3. Splenomegaly. LIVER DOPPLER 1. Patent hepatic vasculature with normal directional flow. 2. Recanalized umbilical vein as a sequela of portal hypertension, withmultiple venous collaterals bordering the falciform ligament. Findingssimilar to prior. Report Verified by: Alberto Rodriguez MD at 10/07/2024 4:26 PM EDT us Bisi Hernandez DO [facility] US ORDERABLES Final Result * US Duplex [id number] Comp (10/07/2024 3:48 PM EDT) Anatomical Region Laterality Modality Abdomen, Pelvis, Testes, Vascular Ultrasound 10/07/2024 2:54 PM EDT Impressions 10/07/2024 4:26 PM EDT IMPRESSION: ABDOMEN 1. Cirrhotic liver morphology. No suspicious hepatic lesion. 2. Moderate volume of ascites. 3. Splenomegaly. LIVER DOPPLER 1. Patent hepatic vasculature with normal directional flow. 2. Recanalized umbilical vein as a sequela of portal hypertension, with multiple venous collaterals bordering the falciform ligament. Findings similar to prior. Report Verified by: Alberto Rodriguez MD at 10/07/2024 4:26 PM EDT Narrative 10/07/2024 4:26 PM EDT EXAM: US ABDOMEN COMPLETE EXAM: US DUPLEX [id number] COMPLETE INDICATION: elevated bilirubin COMPARISON: Ultrasound and CT 09/03/2024. TECHNIQUE: Grayscale imaging was performed for evaluation of the liver, gallbladder, common bile duct, pancreas, spleen, and kidneys; color and spectral (duplex) Doppler analysis of the hepatic vasculature was also performed. FINDINGS: Liver: Cirrhotic liver morphology with coarsened echotexture. No focal hepatic lesion. Linear echogenic structure in the right hepatic lobe corresponds to embolization material. Multiple venous collaterals adjacent to the left falciform ligament Biliary/CBD: 4 mm. No intra or extrahepatic ductal dilatation. Gallbladder: No visualized stones, wall thickening or pericholecystic fluid. Pancreas: Obscured by overlying bowel gas. Right kidney: 11.6 cm in length. Normal parenchymal echogenicity. No hydronephrosis. Left kidney: 11.8 cm in length. Normal parenchymal echogenicity. No hydronephrosis. Spleen: 19.2 cm. Aorta and IVC: Visualized portions of the abdominal aorta are not aneurysmal. The retrohepatic IVC is color Doppler patent. Other: Moderate volume of ascites. DOPPLER: Hepatic Veins: Duplex evaluation of the hepatic vasculature demonstrates normal flow in the right, middle and left hepatic veins. Portal Veins: The right, left and main portal vein demonstrate hepatopetal flow. Recanalized umbilical vein with collateral vessels surrounding this. Hepatic Arteries: Right, main and left hepatic arteries demonstrate normal waveforms. Resistive Indices Main hepatic artery: 0.76-0.79 Right hepatic artery: 0.68-0.79 Left hepatic artery: 0.66-0.72 Procedure Note Alberto Rodriguez MD - 10/07/2024 EXAM: US ABDOMEN COMPLETE EXAM: US DUPLEX [id number] COMPLETE INDICATION: elevated bilirubin COMPARISON: Ultrasound and CT 09/03/2024. TECHNIQUE: Grayscale imaging was performed for evaluation of the liver,gallbladder, common bile duct, pancreas, spleen, and kidneys; color andspectral (duplex) Doppler analysis of the hepatic vasculature was alsoperformed. FINDINGS: Liver: Cirrhotic liver morphology with coarsened echotexture. No focalhepatic lesion. Linear echogenic structure in the right hepatic lobecorresponds to embolization material. Multiple venous collaterals adjacentto the left falciform ligament Biliary/CBD: 4 mm. No intra or extrahepatic ductal dilatation. Gallbladder: No visualized stones, wall thickening or pericholecysticfluid. Pancreas: Obscured by overlying bowel gas. Right kidney: 11.6 cm in length. Normal parenchymal echogenicity. Nohydronephrosis. Left kidney: 11.8 cm in length. Normal parenchymal echogenicity. Nohydronephrosis. Spleen: 19.2 cm. Aorta and IVC: Visualized portions of the abdominal aorta are notaneurysmal. The retrohepatic IVC is color Doppler patent. Other: Moderate volume of ascites. DOPPLER: Hepatic Veins: Duplex evaluation of the hepatic vasculature demonstratesnormal flow in the right, middle and left hepatic veins. Portal Veins: The right, left and main portal vein demonstrate hepatopetalflow. Recanalized umbilical vein with collateral vessels surroundingthis. Hepatic Arteries: Right, main and left hepatic arteries demonstrate normalwaveforms. Resistive Indices Main hepatic artery: 0.76-0.79 Right hepatic artery: 0.68-0.79 Left hepatic artery: 0.66-0.72 IMPRESSION: ABDOMEN 1. Cirrhotic liver morphology. No suspicious hepatic lesion. 2. Moderate volume of ascites. 3. Splenomegaly. LIVER DOPPLER 1. Patent hepatic vasculature with normal directional flow. 2. Recanalized umbilical vein as a sequela of portal hypertension, withmultiple venous collaterals bordering the falciform ligament. Findingssimilar to prior. Report Verified by: Alberto Rodriguez MD at 10/07/2024 4:26 PM EDT us Bisi Hernandez DO [facility] US ORDERABLES Final Result * CARISA Rhythm Strip - Scan (10/07/2024 3:30 PM EDT) us Scanning Uchhim SCAN DOCS - NO RESULTS Final Res ult * (ABNORMAL) Protime-INR (10/07/2024 6:00 AM EDT) Protime 26.9(H) 12.1 - 15.1 seconds 10/07/2024 6:55 AM EDT [facility] INR 2.4(H) 0.9 - 1.1 10/07/2024 6:55 AM EDT [facility] Comment: RECOMMENDED THERAPEUTIC RANGES USING INR : Stable oral anticoagulant therapy: 2.0 - 3.0 Mechanical prosthetic heart valve: 2.5 - 3.5 Recurrent acute myocardial infarction: 2.5 - 3.5 Plasma 10/07/2024 6:00 AM EDT 10/07/2024 6:39 AM EDT us Eileen Schroeder MD, PhD LAB BLOOD ORDERABLES Final Result Performing Organization Address [facility] Co de Phone Number [facility] [address] * (ABNORMAL) Hepatic Function Panel (10/07/2024 6:00 AM EDT) Total Bilirubin 9.7(H) 0.0 - 1.5 mg/dL 10/07/2024 7:10 AM EDT [facility] Bilirubin, Direct 5.21(H) 0.00 - 0.40 mg/dL 10/07/2024 7:10 AM EDT [facility] AST 39 13 - 39 U/L 10/07/2024 7:10 AM EDT [facility] ALT 18 7 - 52 U/L 10/07/2024 7:10 AM EDT [facility] Alkaline Phosphatase 98 36 - 125 U/L 10/07/2024 7:10 AM EDT [facility] Total Protein 4.8(L) 6.4 - 8.9 g/dL 10/07/2024 7:10 AM EDT [facility] Albumin 3.6 3.5 - 5.7 g/dL 10/07/2024 7:10 AM EDT [facility] Bilirubin, Indirect 4.49(H) 0.00 - 1.10 mg/dL 10/07/2024 7:10 AM EDT [facility] Plasma 10/07/2024 6:00 AM EDT 10/07/2024 6:39 AM EDT us Eileen Schroeder MD, PhD LAB BLOOD ORDERABLES Final Result Performing Organization Address City/[facility]/ZIP Co de Phone Number [facility] [address] [facility]. [address] * Magnesium (10/07/2024 6:00 AM EDT) Magnesium 1.7 1.5 - 2.5 mg/dL 10/07/2024 7:10 AM EDT [facility] Plasma 10/07/2024 6:00 AM EDT 10/07/2024 6:39 AM EDT us Eileen Schroeder MD, PhD LAB BLOOD ORDERABLES Final Result [facility] [address] [place] [id number], [facility] * (ABNORMAL) Renal Function Panel w/EGFR (10/07/2024 6:00 AM EDT) Sodium 132(L) 133 - 146 mmol/L 10/07/2024 7:10 AM EDT [facility] Potassium 3.9 3.5 - 5.3 mmol/L 10/07/2024 7:10 AM EDT [facility] Chloride 103 98 - 110 mmol/L 10/07/2024 7:10 AM EDT [facility] CO2 19(L) 21 - 33 mmol/L 10/07/2024 7:10 AM EDT [facility] Anion Gap 10 3 - 16 mmol/L 10/07/2024 7:10 AM EDT [facility] BUN 64(H) 7 - 25 mg/dL 10/07/2024 7:10 AM EDT [facility] Creatinine 3.38(H) 0.60 - 1.30 mg/dL 10/07/2024 7:10 AM EDT [facility] Glucose 111(H) 70 - 100 mg/dL 10/07/2024 7:10 AM EDT [facility] Calcium 9.1 8.6 - 10.3 mg/dL 10/07/2024 7:10 AM EDT [facility] Phosphorus 4.2 2.1 - 4.7 mg/dL 10/07/2024 7:10 AM EDT [facility] Albumin 3.6 3.5 - 5.7 g/dL 10/07/2024 7:10 AM EDT [facility] Osmolality, Calculated 293 278 - 305 mOsm/kg 10/07/2024 7:10 AM EDT [facility] EGFR 22 10/07/2024 7:10 AM EDT [facility] Comment:As of 2021, the estimated GFR is calculated using the 2020 Chronic Kidney Disease Epidemiology Collaboration (CKD-EPI) equation. In line with the NKF-ASN Task Force Recommendations, this equation does not include a coefficient for race. A single eGFR value is calculated for each patient. The reference interval is >60 mL/min/1.73m2. eGFR values greater than 90 will be reported as >90mL/min/1.73m2. Reference: LuisE duardo C, Talia M, Olivia DC, Emerita ND, Madelyn [place], Felicia [place], et al. A Unifying Approach for GFR Estimation: Recommendations of the NKF-ASN Task Force on Reassessing the inclusion of Race in Diagnosing Kidney Disease. Am J Kidney Dis. 2020. Plasma 10/07/2024 6:00 AM EDT 10/07/2024 6:39 AM EDT us Eileen Schroeder MD, PhD LAB BLOOD ORDERABLES Final Result [facility] [address] * (ABNORMAL) CBC (10/07/2024 6:00 AM EDT) WBC 3.3(L) 3.8 - 10.8 10E3/uL 10/07/2024 7:55 AM EDT [facility] RBC 2.06(L) 4.20 - 5.80 10E6/uL 10/07/2024 7:55 AM EDT [facility] Hemoglobin 7.4(L) 13.2 - 17.1 g/dL 10/07/2024 7:55 AM EDT [facility] Hematocrit 21.5(L) 38.5 - 50.0 % 10/07/2024 7:55 AM EDT [facility] MCV 104.1(H) 80.0 - 100.0 fL 10/07/2024 7:55 AM EDT [facility] MCH 35.8(H) 27.0 - 33.0 pg 10/07/2024 7:55 AM EDT [facility] MCHC 34.4 32.0 - 36.0 g/dL 10/07/2024 7:55 AM EDT [facility] RDW 17.5(H) 11.0 - 15.0 % 10/07/2024 7:55 AM EDT [facility] Platelets 35(L) 140 - 400 10E3/uL 10/07/2024 7:55 AM EDT [facility] Comment: Specimen checked for clots. None detected. Slide Reviewed for PLT Clumps. None Seen. _Platelet Morphology Normal _Platelets Appear Decreased Platelet Estimate Decreased 10/07/2024 7:55 AM EDT [facility] MPV 8.0 7.5 - 11.5 fL 10/07/2024 7:55 AM EDT [facility] Whole Blood 10/07/2024 6:00 AM EDT 10/07/2024 6:40 AM EDT [facility] - 10/07/2024 7:55 AM EDT Peripheral blood smear was scanned per review criteria approved by the laboratory front office medical assistant. us Eileen Schroeder MD, PhD LAB BLOOD ORDERABLES Final Result Performing Organization Address [facility]/ZIP Co de Phone Number [facility] [address] * AFP Tumor Marker (10/07/2024 6:00 AM EDT) AFP-Tumor Marker 2.0 0.0 - 9.0 ng/mL 10/07/2024 7:11 AM EDT [facility] Serum 10/07/2024 6:00 AM EDT 10/07/2024 6:39 AM EDT [facility] - 10/07/2024 7:11 AM EDT The testing method for AFP is a chemiluminescent immunoassay manufactured by [employer] Concentrations of AFP obtained by different assay methods or kits may vary and cannot be used interchangeably. AFP results cannot be interpreted as absolute evidence of the presence or absence of malignant disease. us Shila Rivera MD LAB BLOOD ORDERABLES Final Resul t Performing Organization Address City/[facility]/ZIP Co de Phone Number [facility] [address] * Vancomycin, random (10/07/2024 6:00 AM EDT) Vancomycin Random 21.1 ug/mL 10/07/2024 7:08 AM EDT [facility] Comment:Reference range not established for this test. Plasma 10/07/2024 6:00 AM EDT 10/07/2024 6:39 AM EDT Kiet Gardiner PharmD LAB BLOOD ORDERABLES Final Re sult [facility] [address] [facility]. [address] * Osmolality (10/06/2024 2:50 PM EDT) Osmolality, Measured 304 278 - 305 mOsm/kg 10/06/2024 3:49 PM EDT [facility] Serum 10/06/2024 2:50 PM EDT 10/06/2024 2:56 PM EDT Chari Vanegas MD LAB BLOOD ORDERABLES Final Resul t Performing Organization Address [facility] Co de Phone Number [facility] [address] [facility]. [address] * CT Head WO contrast (10/06/2024 1:56 PM EDT) Anatomical Region Laterality Modality Head Computed Tomogra phy 10/06/2024 1:50 PM EDT Impressions 10/06/2024 4:50 PM EDT IMPRESSION: 1. No acute intracranial abnormality. 2. No intracranial mass effect or hemorrhage. Report Verified by: Sher Abrams MD at 10/06/2024 4:50 PM EDT Narrative 10/06/2024 4:50 PM EDT EXAM: CT HEAD WO CONTRAST INDICATION: Mental status change, unknown cause TECHNIQUE: Axial thin section CT images of the head were obtained without contrast. Sagittal and coronal 2-D multiplanar reconstructions were performed at the scanner. COMPARISON: None available. FINDINGS: Adequate diagnostic quality. Brain parenchyma: Normal brain attenuation. Ventricles and extraaxial spaces: Normal ventricular system. No extra-axial fluid collection. Orbits, paranasal sinuses, mastoids: No acute orbital abnormality. Clear paranasal sinuses. Clear mastoid air cells. Incidental right nasal septal deviation with nasal spur. Extracranial soft tissues: Normal. Calvarium and skull base: No fracture or suspicious osseous lesion. Procedure Note Sher Abrams MD - 10/06/2024 EXAM: CT HEAD WO CONTRAST INDICATION: Mental status change, unknown cause TECHNIQUE: Axial thin section CT images of the head were obtained withoutcontrast. Sagittal and coronal 2-D multiplanar reconstructions wereperformed at the scanner. COMPARISON: None available. FINDINGS: Adequate diagnostic quality. Brain parenchyma: Normal brain attenuation. Ventricles and extraaxial spaces: Normal ventricular system. Noextra-axial fluid collection. Orbits, paranasal sinuses, mastoids: No acute orbital abnormality. Clearparanasal sinuses. Clear mastoid air cells. Incidental right nasal septaldeviation with nasal spur. Extracranial soft tissues: Normal. Calvarium and skull base: No fracture or suspicious osseous lesion. IMPRESSION: 1. No acute intracranial abnormality. 2. No intracranial mass effect or hemorrhage. Report Verified by: Sher Abrams MD at 10/06/2024 4:50 PM EDT Eileen Schroeder MD, PhD IMG CT ORDERABLES [facility] Result * Chloride, urine, random (10/06/2024 1:25 PM EDT) Chloride, Ur <15 mmol/L 10/06/2024 1:56 PM EDT [facility] Comment:Reference range not established for this test. Urine 10/06/2024 1:25 PM EDT 10/06/2024 1:32 PM EDT Chari Vanegas MD URINE ORDERABLES Final Result [facility] [address] [facility] [place] [address], [facility] * Potassium, urine, random (10/06/2024 1:25 PM EDT) Potassium Urine Random 50.0 mmol/L 10/06/2024 1:56 PM EDT [facility] Comment:Reference range not established for this test. Urine 10/06/2024 1:25 PM EDT 10/06/2024 1:32 PM EDT us Chari Vanegas MD URINE ORDERABLES Final Result Performing Organization Address [facility] de Phone Number [facility] [address] [place] [address]. [address] * Sodium, urine, random (10/06/2024 1:25 PM EDT) Sodium, Ur <10 mmol/L 10/06/2024 1:56 PM EDT [facility] Comment:Reference range not established for this test. Urine 10/06/2024 1:25 PM EDT 10/06/2024 1:32 PM EDT us Chari Vanegas MD URINE ORDERABLES Final Result Performing Organization Address [facility] de Phone Number [facility] [address] [facility]. [address] * Creatinine, Urine, Random (10/06/2024 1:25 PM EDT) Creatinine, Urine 87.40 mg/dL 10/06/2024 1:56 PM EDT [facility] Comment:Reference range not established for this test. Urine 10/06/2024 1:25 PM EDT 10/06/2024 1:32 PM EDT us Chari Vanegas MD URINE ORDERABLES Final Result Performing Organization Address [facility] de Phone Number [facility] [address] [facility]. [address] * Osmolality, Urine (10/06/2024 1:25 PM EDT) Osmolality, Ur 386 50 - 1,200 mOsm/kg 10/06/2024 1:55 PM EDT [facility] Urine 10/06/2024 1:25 PM EDT 10/06/2024 1:32 PM EDT us Chari Vanegas MD URINE ORDERABLES Final Result [facility] [address] [facility] [place] [address], [facility] * Urine Drug Confirmation (10/06/2024 11:51 AM EDT) BARBITURATES NOT PRESENT 10/09/2024 3:23 PM EDT [facility] Comment:Results were recheck ed. BENZODIAZEPINES PRESENT 3:23 PM EDT [facility] Nordiazepam 3 ng/mL 10/09/2024 3:23 PM EDT [facility] Comment:Results were recheck ed. Temazepam 8 ng/mL 10/09/2024 3:23 PM EDT [facility] Comment:Results were recheck ed. CANNABINOIDS NOT PRESENT 10/09/2024 3:23 PM EDT [facility] INDUSTRIAL PARAMEDIC STIMULANTS NOT PRESENT 3:23 PM EDT [facility] OPIOID ANALGESICS PRESENT 025 3:23 PM EDT [facility] Oxycodone 329 ng/mL 10/09/2024 3:23 PM EDT [facility] Oxymorphone 61 ng/mL 10/09/2024 3:23 PM EDT [facility] Tramadol >1000 ng/mL 10/09/2024 3:23 PM EDT [facility] OPIOID ANTAGONISTS NOT PRESENT 10/09 3:23 PM EDT [facility] SEDATIVES/MUSCLE RELAXANTS NOT PRESENT 10/09/2024 3:23 PM EDT [facility] TRICYCLIC ANTIDEPRESSANTS NOT PRESENT 10/09/2024 3:23 PM EDT [facility] Urine 10/06/2024 11:5 1 AM EDT 10/06/2024 1:13 PM EDT us Bisi Hernandez DO URINE ORDERABLES Final Result [facility] [address] [place], [place] [address] * (ABNORMAL) Urine Drug Screen Reflex to Confirmation (10/06/2024 11:51 AM EDT) Amphetamine, 500 ng/mL Cutoff Negative Negative 10/06/2024 1:13 PM EDT [facility] Barbiturates UR, 300 ng/mL Cutoff Negative Negative 10/06/2024 1:13 PM EDT [facility] Buprenorphine, 5 ng/mL Cutoff Negative Negative 10/06/2024 1:13 PM EDT [facility] Benzodiazepines UR, 300 ng/mL Cutoff Negative Negative 10/06/2024 1:13 PM EDT [facility] Cocaine UR, 300 ng/mL Cutoff Negative Negative 10/06/2024 1:13 PM EDT [facility] Methadone, UR, 300 ng/mL Cutoff Negative Negative 10/06/2024 1:13 PM EDT [facility] Opiates UR, 300 ng/mL Cutoff Negative Negative 10/06/2024 1:13 PM EDT [facility] Oxycodone, 100 ng/mL Cutoff Presumptive Positive(A) Negative 10/06/2024 1:13 PM EDT [facility] Tricyclic Antidepressants, 300 ng/mL Cutoff Negative Negative 10/06/2024 1:13 PM EDT [facility] Comment:This test has been d eveloped and its performance characteristics determined by [facility] which is certified under the [...] THC UR, 50 ng/mL Cutoff Negative Negative 10/06/2024 1:13 PM EDT [facility] Comment:This is a screening method only and may be associated with false positive and/or false negative results. Results are not definitive without additional confirmatory testing by mass spectrometry. Fentanyl, 2 ng/mL Cutoff Negative Negative 10/06/2024 1:13 PM EDT [facility] Comment:This test has been d eveloped and its performance characteristics determined by [facility] which is certified under the Clinical Laboratory Improvement Amendment of 1988 (CLIA-88) to perform high complexity testing. The test has not been cleared or approved by the US Food and Drug Administration (FDA). The FDA has determined that such clearance is not necessary. The test should be used for clinical purposes and is not regarded as investigational. Urine 10/06/2024 11:5 1 AM EDT 10/06/2024 11:58 AM EDT Narrative [facility] - 10/06/2024 1:13 PM EDT CONFIRMATION TO FOLLOW Bisi Hernandez DO URINE ORDERABLES Final Result Performing Organization Address City/[facility]/ZIP Co de Phone Number [facility] [address] [facility]. [address] * Chloride, urine, random (10/06/2024 11:51 AM EDT) Chloride, Ur <15 mmol/L 10/06/2024 1:13 PM EDT [facility] Comment:Reference range not established for this test. Urine 10/06/2024 11:5 1 AM EDT 10/06/2024 11:57 AM EDT Bisi Hernandez DO URINE ORDERABLES Final Result Performing Organization Address [facility] Co de Phone Number [facility] [address] [facility]. [address] * Potassium, urine, random (10/06/2024 11:51 AM EDT) Potassium Urine Random 49.0 mmol/L 10/06/2024 1:13 PM EDT [facility] Comment:Reference range not established for this test. Urine 10/06/2024 11:5 1 AM EDT 10/06/2024 11:57 AM EDT Bisi Hernandez DO URINE ORDERABLES Final Result Performing Organization Address City/[facility]/ZIP Co de Phone Number [facility] [address] [facility]. [address] * Sodium, urine, random (10/06/2024 11:51 AM EDT) Sodium, Ur <10 mmol/L 10/06/2024 1:13 PM EDT [facility] Comment:Reference range not established for this test. Urine 10/06/2024 11:5 1 AM EDT 10/06/2024 11:57 AM EDT us Bisi Hernandez DO URINE ORDERABLES Final Result [facility] [address] [place] [address], [facility] * Urinalysis w/Rfl to Microscopic (10/06/2024 11:51 AM EDT) Color, UA Yellow Yellow,Straw 10/06/2024 12:25 PM EDT [facility] Clarity, UA Clear Clear 10/06/2024 12:25 PM EDT [facility] Specific [place], UA 1.014 1.005 - 1.035 10/06/2024 12:25 PM EDT [facility] pH, UA 6.0 5.0 - 8.0 10/06/2024 12:25 PM EDT [facility] Protein, UA Negative Negative mg/dL 10/06/2024 12:25 PM EDT [facility] Glucose, UA Negative Negative mg/dL 10/06/2024 12:25 PM EDT [facility] Ketones, UA Negative Negative mg/dL 10/06/2024 12:25 PM EDT [facility] Bilirubin, UA Negative Negative 10/06/2024 12:25 PM EDT [facility] Blood, UA Negative Negative 10/06/2024 12:25 PM EDT [facility] Nitrite, UA Negative Negative 10/06/2024 12:25 PM EDT [facility] Urobilinogen, UA <2.0 0.2 - 1.9 mg/dL 10/06/2024 12:25 PM EDT [facility] Leukocyte Esterase, UA Negative Negative 10/06/2024 12:25 PM EDT [facility] Urine 10/06/2024 11:5 1 AM EDT 10/06/2024 11:57 AM EDT Narrative [facility] - 10/06/2024 12:25 PM EDT Microscopic testing is not performed when the dipstick is negative for blood, leukocyte, protein and nitrite. us Bisijusten Hernandez DO URINE ORDERABLES Final Result Performing Organization Address [facility]/ZIP Co de Phone Number [facility] [address] * Lactic Acid, STAT (10/06/2024 7:38 AM EDT) Lactate 0.9 0.5 - 2.2 mmol/L 10/06/2024 8:05 AM EDT [facility] Plasma 10/06/2024 7:38 AM EDT 10/06/2024 7:42 AM EDT us Chari Vanegas MD LAB BLOOD ORDERABLES Final Resul t Performing Organization Address [facility] Co de Phone Number [facility] [address] * (ABNORMAL) CBC, STAT (10/06/2024 7:37 AM EDT) WBC 5.6 3.8 - 10.8 10E3/uL 10/06/2024 8:22 AM EDT [facility] RBC 2.50(L) 4.20 - 5.80 10E6/uL 10/06/2024 8:22 AM EDT [facility] Hemoglobin 9.0(L) 13.2 - 17.1 g/dL 10/06/2024 8:22 AM EDT [facility] Hematocrit 25.3(L) 38.5 - 50.0 % 10/06/2024 8:22 AM EDT [facility] MCV 101.2(H) 80.0 - 100.0 fL 10/06/2024 8:22 AM EDT [facility] MCH 36.0(H) 27.0 - 33.0 pg 10/06/2024 8:22 AM EDT [facility] MCHC 35.6 32.0 - 36.0 g/dL 10/06/2024 8:22 AM EDT [facility] RDW 17.7(H) 11.0 - 15.0 % 10/06/2024 8:22 AM EDT [facility] Platelets 52(L) 140 - 400 10E3/uL 10/06/2024 8:22 AM EDT [facility] Comment: Specimen checked for clots. None detected. Slide Reviewed for PLT Clumps. None Seen. MPV 8.2 7.5 - 11.5 fL 10/06/2024 8:22 AM EDT [facility] Whole Blood 10/06/2024 7:37 AM EDT 10/06/2024 7:43 AM EDT us Chari Vanegas MD LAB BLOOD ORDERABLES Final Resul t [facility] [address] [place] [address], [facility] * (ABNORMAL) Comprehensive Metabolic Panel (10/06/2024 7:37 AM EDT) Sodium 129(L) 133 - 146 mmol/L 10/06/2024 8:16 AM EDT [facility] Potassium 4.4 3.5 - 5.3 mmol/L 10/06/2024 8:16 AM EDT [facility] Chloride 100 98 - 110 mmol/L 10/06/2024 8:16 AM EDT [facility] CO2 18(L) 21 - 33 mmol/L 10/06/2024 8:16 AM EDT [facility] Anion Gap 11 3 - 16 mmol/L 10/06/2024 8:16 AM EDT [facility] BUN 62(H) 7 - 25 mg/dL 10/06/2024 8:16 AM EDT [facility] Creatinine 3.40(H) 0.60 - 1.30 mg/dL 10/06/2024 8:16 AM EDT [facility] Glucose 98 70 - 100 mg/dL 10/06/2024 8:16 AM EDT [facility] Calcium 9.5 8.6 - 10.3 mg/dL 10/06/2024 8:16 AM EDT [facility] Total Bilirubin 14.3(H) 0.0 - 1.5 mg/dL 10/06/2024 8:16 AM EDT [facility] AST 57(H) 13 - 39 U/L 10/06/2024 8:16 AM EDT [facility] ALT 29 7 - 52 U/L 10/06/2024 8:16 AM EDT [facility] Alkaline Phosphatase 158(H) 36 - 125 U/L 10/06/2024 8:16 AM EDT [facility] Total Protein 5.6(L) 6.4 - 8.9 g/dL 10/06/2024 8:16 AM EDT [facility] Albumin 3.6 3.5 - 5.7 g/dL 10/06/2024 8:16 AM EDT [facility] Osmolality, Calculated 286 278 - 305 mOsm/kg 10/06/2024 8:16 AM EDT [facility] EGFR 22 10/06/2024 8:16 AM EDT [facility] Comment:As of 2021, the estimated [...] Disease. Am J Kidney Dis. 2020. Plasma 10/06/2024 7:37 AM EDT 10/06/2024 7:43 AM EDT us Chari Vanegas MD LAB BLOOD ORDERABLES Final Resul t [facility] [address] [facility] [place] [address], [facility] * (ABNORMAL) Venous Blood Gas, Line/Syringe, STAT (10/06/2024 7:37 AM EDT) PH-Line Draw 7.27(L) 7.32 - 7.42 10/06/2024 7:46 AM EDT [facility] PCO2-Line Draw 36(L) 41 - 51 mm Hg 10/06/2024 7:46 AM EDT [facility] PO2-Line Draw 44(H) 25 - 40 mm Hg 10/06/2024 7:46 AM EDT [facility] HCO3-Line Draw 17(L) 24 - 28 mmol/L 10/06/2024 7:46 AM EDT [facility] CO2 Content-Line Draw 18(L) 25 - 29 mmol/L 10/06/2024 7:46 AM EDT [facility] Base Excess-Line Draw -9.6(L) -2.0 - 3.0 mmol/L 10/06/2024 7:46 AM EDT [facility] %HBO2-Line Draw 69.8 40.0 - 70.0 % 10/06/2024 7:46 AM EDT [facility] Carboxyhgb-Ludivina e Draw 0.7 % 10/06/2024 7:46 AM EDT [facility] Comment: CARBOXYHEMOGLOBIN (CO) REFERENCE RANGES: Non-Smokers: <2 % Smokers: <8 % TOXIC: >20 % Methemoglobin- Line Draw 0.3 0.0 - 1.5 % 10/06/2024 7:46 AM EDT [facility] Reduced Hemoglobin-Ludivina e Draw 29.2(H) 0.0 - 5.0 % 10/06/2024 7:46 AM EDT [facility] Venous, Line Draw 10/06/2024 7:37 AM EDT 10/06/2024 7:43 AM EDT us Chari Vanegas MD LAB BLOOD ORDERABLES Final Resul t [facility] [address] [place] [address], [facility] * (ABNORMAL) Venous Blood Gas, Line/Syringe, STAT (10/06/2024 4:03 AM EDT) PH-Line Draw 7.21(L) 7.32 - 7.42 10/06/2024 4:16 AM EDT [facility] PCO2-Line Draw 41 41 - 51 mm Hg 10/06/2024 4:16 AM EDT [facility] PO2-Line Draw 32 25 - 40 mm Hg 10/06/2024 4:16 AM EDT [facility] HCO3-Line Draw 16(L) 24 - 28 mmol/L 10/06/2024 4:16 AM EDT [facility] CO2 Content-Line Draw 18(L) 25 - 29 mmol/L 10/06/2024 4:16 AM EDT [facility] Base Excess-Line Draw -10.8(L) -2.0 - 3.0 mmol/L 10/06/2024 4:16 AM EDT [facility] %HBO2-Line Draw 47.5 40.0 - 70.0 % 10/06/2024 4:16 AM EDT [facility] Carboxyhgb-Ludivina e Draw 2.0 % 10/06/2024 4:16 AM EDT [facility] Comment: CARBOXYHEMOGLOBIN (CO) REFERENCE RANGES: Non-Smokers: <2 % Smokers: <8 % TOXIC: >20 % Methemoglobin- Line Draw 0.7 0.0 - 1.5 % 10/06/2024 4:16 AM EDT [facility] Reduced Hemoglobin-Ludivina e Draw 49.8(H) 0.0 - 5.0 % 10/06/2024 4:16 AM EDT [facility] Venous, Line Draw 10/06/2024 4:03 AM EDT 10/06/2024 4:12 AM EDT us Bisi Hernandez DO LAB BLOOD ORDERABLES Final Resul t [facility] [address] [place] [address], [facility] * (ABNORMAL) Protime-INR (10/06/2024 4:01 AM EDT) Protime 21.3(H) 12.1 - 15.1 seconds 10/06/2024 4:40 AM EDT [facility] INR 1.8(H) 0.9 - 1.1 10/06/2024 4:40 AM EDT [facility] Comment: RECOMMENDED THERAPEUTIC RANGES USING INR : Stable oral anticoagulant therapy: 2.0 - 3.0 Mechanical prosthetic heart valve: 2.5 - 3.5 Recurrent acute myocardial infarction: 2.5 - 3.5 Plasma 10/06/2024 4:01 AM EDT 10/06/2024 4:11 AM EDT [employer] LAB BLOOD ORDERABLES Final Resul t Performing Organization Address [facility] Co de Phone Number [facility] [address] [facility]. [address] * (ABNORMAL) Hepatic Function Panel, AM (10/06/2024 4:01 AM EDT) Total Bilirubin 14.7(H) 0.0 - 1.5 mg/dL 10/06/2024 4:57 AM EDT [facility] Bilirubin, Direct 7.08(H) 0.00 - 0.40 mg/dL 10/06/2024 4:57 AM EDT [facility] AST 60(H) 13 - 39 U/L 10/06/2024 4:57 AM EDT [facility] ALT 31 7 - 52 U/L 10/06/2024 4:57 AM EDT [facility] Alkaline Phosphatase 162(H) 36 - 125 U/L 10/06/2024 4:57 AM EDT [facility] Total Protein 5.3(L) 6.4 - 8.9 g/dL 10/06/2024 4:57 AM EDT [facility] Albumin 3.4(L) 3.5 - 5.7 g/dL 10/06/2024 4:57 AM EDT [facility] Bilirubin, Indirect 7.62(H) 0.00 - 1.10 mg/dL 10/06/2024 4:57 AM EDT [facility] Plasma 10/06/2024 4:01 AM EDT 10/06/2024 4:22 AM EDT [facility] DO LAB BLOOD ORDERABLES Final Resul t Performing Organization Address City/[facility]/ZIP Co de Phone Number [facility] [address] * Magnesium (10/06/2024 4:01 AM EDT) Magnesium 1.8 1.5 - 2.5 mg/dL 10/06/2024 4:57 AM EDT [facility] Plasma 10/06/2024 4:01 AM EDT 10/06/2024 4:22 AM EDT us Bisi Hernandez DO LAB BLOOD ORDERABLES Final Resul t [facility] [address] * (ABNORMAL) Renal Function Panel w/EGFR (10/06/2024 4:01 AM EDT) Sodium 129(L) 133 - 146 mmol/L 10/06/2024 4:57 AM EDT [facility] Potassium 4.7 3.5 - 5.3 mmol/L 10/06/2024 4:57 AM EDT [facility] Chloride 100 98 - 110 mmol/L 10/06/2024 4:57 AM EDT [facility] CO2 16(L) 21 - 33 mmol/L 10/06/2024 4:57 AM EDT [facility] Anion Gap 13 3 - 16 mmol/L 10/06/2024 4:57 AM EDT [facility] BUN 61(H) 7 - 25 mg/dL 10/06/2024 4:57 AM EDT [facility] Creatinine 3.49(H) 0.60 - 1.30 mg/dL 10/06/2024 4:57 AM EDT [facility] Glucose 104(H) 70 - 100 mg/dL 10/06/2024 4:57 AM EDT [facility] Calcium 9.2 8.6 - 10.3 mg/dL 10/06/2024 4:57 AM EDT [facility] Phosphorus 5.3(H) 2.1 - 4.7 mg/dL 10/06/2024 4:57 AM EDT [facility] Albumin 3.4(L) 3.5 - 5.7 g/dL 10/06/2024 4:57 AM EDT [facility] Osmolality, Calculated 286 278 - 305 mOsm/kg 10/06/2024 4:57 AM EDT [facility] EGFR 22 10/06/2024 4:57 AM EDT [facility] Comment:As of 2021, the estimated [...] Disease. Am J Kidney Dis. 2020. Plasma 10/06/2024 4:01 AM EDT 10/06/2024 4:22 AM EDT us Bisi Hernandez DO LAB BLOOD ORDERABLES Final Resul t [facility] [address] [place] [address], [facility] * (ABNORMAL) CBC (10/06/2024 4:01 AM EDT) WBC 7.6 3.8 - 10.8 10E3/uL 10/06/2024 5:16 AM EDT [facility] RBC 2.77(L) 4.20 - 5.80 10E6/uL 10/06/2024 5:16 AM EDT [facility] Hemoglobin 10.1(L) 13.2 - 17.1 g/dL 10/06/2024 5:16 AM EDT [facility] Hematocrit 28.4(L) 38.5 - 50.0 % 10/06/2024 5:16 AM EDT [facility] MCV 102.4(H) 80.0 - 100.0 fL 10/06/2024 5:16 AM EDT [facility] MCH 36.4(H) 27.0 - 33.0 pg 10/06/2024 5:16 AM EDT [facility] MCHC 35.5 32.0 - 36.0 g/dL 10/06/2024 5:16 AM EDT [facility] RDW 18.0(H) 11.0 - 15.0 % 10/06/2024 5:16 AM EDT [facility] Platelets 53(L) 140 - 400 10E3/uL 10/06/2024 5:16 AM EDT [facility] Comment:Specimen checked for clots. None detected. MPV 8.4 7.5 - 11.5 fL 10/06/2024 5:16 AM EDT [facility] Whole Blood 10/06/2024 4:01 AM EDT 10/06/2024 4:11 AM EDT [facility] BLOOD ORDERABLES Final Resul t Performing Organization Address City/[facility]/ZIP Co de Phone Number [facility] [address] * Hepatitis C Antibody (10/06/2024 4:01 AM EDT) HCV Ab Nonreactive Nonreactive 10/06/2024 5:12 AM EDT [facility] Comment:Health Department no tified in accordance with reportable infectious disease guidelines. Serum 10/06/2024 4:01 AM EDT 10/06/2024 4:11 AM EDT Narrative [facility] - 10/06/2024 5:12 AM EDT Antibodies to HCV not detected; does not exclude the possibility of exposure to HCV. [facility] BLOOD ORDERABLES Final Resul t Performing Organization Address City/[facility]/ZIP Co de Phone Number [facility] [address] * (ABNORMAL) Hepatitis B Surface Antibody, Quantitati (10/06/2024 4:01 AM EDT) Hep B S Ab Reactive( A) Nonreactive 10/06/2024 5:16 AM EDT [facility] HBSAB NUMBER 11.50(H) 0.00 - 7.99 mIU/mL 10/06/2024 5:16 AM EDT [facility] Serum 10/06/2024 4:01 AM EDT 10/06/2024 4:11 AM EDT [facility] - 10/06/2024 5:16 AM EDT Individual is considered immune to HBV infection. [facility] BLOOD ORDERABLES Final Resul t Performing Organization Address City/[facility]/ZIP Co de Phone Number [facility] [address] [place] [address]. [address] * Hepatitis B surface antigen (10/06/2024 4:01 AM EDT) Hep B Surface Ag Nonreactive Nonreactive 10/06/2024 5:07 AM EDT [facility] Comment:Health Department no tified in accordance with reportable infectious disease guidelines. Serum 10/06/2024 4:01 AM EDT 10/06/2024 4:11 AM EDT [facility] - 10/06/2024 5:07 AM EDT Specimen is considered negative for HBsAg. [facility] BLOOD ORDERABLES Final Resul t Performing Organization Address City/[facility]/ZIP Co de Phone Number [facility] [address] [facility]. [address] * Hepatitis A Antibody Total (10/06/2024 4:01 AM EDT) Anti-HAV Total (IgG + IgM) Nonreactive 10/06/2024 5:08 AM EDT [facility] Serum 10/06/2024 4:01 AM EDT 10/06/2024 4:11 AM EDT [facility] - 10/06/2024 5:08 AM EDT HAV antibodies not detected Bisi Akella DO LAB BLOOD ORDERABLES Final Resul t Performing Organization Address [facility] Co de Phone Number [facility] [address] * Hepatitis A IgM (10/06/2024 4:01 AM EDT) Hep A IgM Nonreactive Nonreactive 10/06/2024 5:02 AM EDT [facility] Serum 10/06/2024 4:01 AM EDT 10/06/2024 4:11 AM EDT Narrative [facility] - 10/06/2024 5:02 AM EDT IgM anti-HAV not detected. Does not exclude the possibility of exposure to or infection with HAV. Levels of IgM anti-HAV may be below the cut-off in early infection. [facility] BLOOD ORDERABLES Final Resul t Performing Organization Address [facility] Co de Phone Number [facility] [address] * (ABNORMAL) Salicylate Level (10/06/2024 4:01 AM EDT) Pathologist [facility] Salicylate Lvl <3(L) 10 - 30 mg/dL 10/06/2024 4:58 AM EDT [facility] Serum 10/06/2024 4:01 AM EDT 10/06/2024 4:22 AM EDT [facility] BLOOD ORDERABLES Final Resul t Performing Organization Address City/[facility] Co de Phone Number [facility] [address] * AFP Tumor Marker (10/06/2024 4:01 AM EDT) Pathologist [facility] AFP-Tumor Marker 2.6 0.0 - 9.0 ng/mL 10/06/2024 4:55 AM EDT [facility] Serum 10/06/2024 4:01 AM EDT 10/06/2024 4:22 AM EDT Narrative [facility] - 10/06/2024 4:55 AM EDT The testing method for AFP is a chemiluminescent immunoassay manufactured by [employer] Concentrations of AFP obtained by different assay methods or kits may vary and cannot be used interchangeably. AFP results cannot be interpreted as absolute evidence of the presence or absence of malignant disease. us Bisi Hernandez LAB BLOOD ORDERABLES Final Resul t [facility] [address] [facility] [place], [place] [address] * Upper Respiratory Viral/Bacterial Panel-FORMULA BOTTLER Only (10/06/2024 3:12 AM EDT) Pathologist [facility] Adenovirus Not Detected Not Detected 10/06/2024 11:38 PM EDT [facility] Coronavirus (229E,HKU1,NL63,OC 43) Not Detected Not Detected 10/06/2024 11:38 PM EDT [facility] SARS-CoV-2 Not Detected Not Detected 10/06/2024 11:38 PM EDT [facility] Human Metapneumovirus Not Detected Not Detected 10/06/2024 11:38 PM EDT [facility] Human Rhinovirus/Enterov irus Not Detected Not Detected 10/06/2024 11:38 PM EDT [facility] Influenza A Not Detected Not Detected 10/06/2024 11:38 PM EDT [facility] Influenza A H1 Not Detected Not Detected 10/06/2024 11:38 PM EDT [facility] Influenza A/H1-2009 Not Detected Not Detected 10/06/2024 11:38 PM EDT [facility] Influenza A H3 Not Detected Not Detected 10/06/2024 11:38 PM EDT [facility] Influenza B Not Detected Not Detected 10/06/2024 11:38 PM EDT [facility] Parainfluenza 1 Not Detected Not Detected 10/06/2024 11:38 PM EDT [facility] Parainfluenza 2 Not Detected Not Detected 10/06/2024 11:38 PM EDT [facility] Parainfluenza 3 Not Detected Not Detected 10/06/2024 11:38 PM EDT [facility] Parainfluenza 4 Not Detected Not Detected 10/06/2024 11:38 PM EDT [facility] Resp. Syncycial Virus A Not Detected Not Detected 10/06/2024 11:38 PM EDT [facility] Resp. Syncycial Virus B Not Detected Not Detected 10/06/2024 11:38 PM EDT [facility] Chlamydia pneumoniae Not Detected Not Detected 10/06/2024 11:38 PM EDT [facility] Mycoplasma pneumoniae Not Detected Not Detected 10/06/2024 11:38 PM EDT [facility] Comment: The Respiratory Viral-Bacterial Panel is an FDA-approved nucleic acid amplification test that detects 16 different viral targets and 2 bacterial targets in nasopharyngeal specimens. Negative results do not rule out the presence of viral, bacterial, or fungal infections. Infections with more than a single agent have been reported. This test has been authorized by the FDA under an Emergency Use Authorization (EUA). This test is used for clinical purposes. This test has been validated in accordance with the FDA's guidance document Policy for Diagnostic Tests for Coronavirus Disease-2019 during the Public Health Emergency issued on July 28, 2019. This test is only authorized for use during the time specified by the declaration that circumstances exist justifying the authorization of the emergency use of in vitro diagnostic tests for the detection of SARS-CoV2 virus and/or diagnosis of COVID- 19 infection under section 564(B)(1) of the Act, 21 U.S.C. 360bbb-3 (b)(1) applies, unless authorization is terminated or revoked sooner. Test results have been sent to the [facility] in accordance with state requirements. For a fact sheet for healthcare providers, see https://www.fda.gov/media/290785/download. For a fact sheet for patients, see https://www.fda.gov/media/524562/download. Nasopharyngeal Swab NASOPHARYNGEAL SWAB / Unknown 10/06/2024 3:12 AM EDT 10/06/2024 5:41 PM EDT Comment:FORMULA BOTTLER us Bisi Hernandez DO BODY FLUIDS AND STOOLS ORDERABLE S Final Result [facility] [address] [place] [address], [facility] * X-ray Portable Chest (10/06/2024 1:16 AM EDT) Anatomical Region Laterality Modality Chest Radiographic Rachel ging 10/06/2024 12:5 7 AM EDT Impressions 10/06/2024 2:33 AM EDT IMPRESSION: Negative portable chest. Report Verified by: Eduardo Franks MD at 10/06/2024 2:33 AM EDT Narrative 10/06/2024 2:33 AM EDT EXAM: XR PORTABLE CHEST INDICATION: Other - Must Specify in Comments; altered mental status TECHNIQUE: 1 view of the chest. COMPARISON: 09/03/2024. FINDINGS: Medical Devices: None. Heart and Mediastinum: Cardiomediastinal silhouette is within normal limits. Lungs and Pleura: Unchanged bandlike opacity at the left base compatible with subsegmental atelectasis/scarring. No focal consolidation. No pneumothorax or large pleural effusion. Bones and Soft tissues: No acute abnormalities. Partially included ACDF hardware in the lower neck. Procedure Note Shaji Franks MD - 10/06/2024 EXAM: XR PORTABLE CHEST INDICATION: Other - Must Specify in Comments; altered mental status TECHNIQUE: 1 view of the chest. COMPARISON: 09/03/2024. FINDINGS: Medical Devices: None. Heart and Mediastinum: Cardiomediastinal silhouette is within normallimits. Lungs and Pleura: Unchanged bandlike opacity at the left base compatiblewith subsegmental atelectasis/scarring. No focal consolidation. Nopneumothorax or large pleural effusion. Bones and Soft tissues: No acute abnormalities. Partially included ACDFhardware in the lower neck. IMPRESSION: Negative portable chest. Report Verified by: Eduardo Franks MD at 10/06/2024 2:33 AM EDT us Bisi Hernandez DO IM DIAGNOSTIC IMAGING ORDERABLE S Final Result * Phosphatidylethanol Confirmation, B (10/06/2024 1:04 AM EDT) PETH 16:0/18.1 (POPETH) <10 Cutoff: 10 ng/mL 10/10/2024 3:11 AM EDT [facility] Comment: Phosphatidylethanol (PEth) homologues result interpretation [...] PETH 16:0/18.2 (PLPETH) <10 Cutoff: 10 ng/mL 10/10/2024 3:11 AM EDT [facility] Comment: PEth 16:0/18:2 (PLPEth) Reference ranges are not well established PEth Interpretation Negative. 10/10 3:11 AM EDT [facility] Comment: ADDITIONAL INFORMATION This report is intended for use in clinical monitoring and management of patients. It is not intended for use in employment-related testing. This test was developed and its performance characteristics determined by [facility] in a manner consistent with CLIA requirements. This test has not been cleared or approved by the [place].S. Food and Drug Administration. Test Performed by: [facility] [place] [address] Technical Service Representative: Kathy Ortiz Ph.D.; CLIA# [id number] Whole Blood 10/06/2024 1:0 4 AM EDT 10/10/2024 3:11 AM EDT us Bisi Hernandez DO LAB BLOOD ORDERABLES Final Resul t [facility] [address] [place] [address], [facility] * (ABNORMAL) Acetaminophen Level (10/06/2024 1:04 AM EDT) Acetaminophen Level <10(L) 10 - 30 ug/mL 10/06/2024 2:08 AM EDT [facility] Serum 10/06/2024 1:04 AM EDT 10/06/2024 1:30 AM EDT Bisi Hernandez DO LAB BLOOD ORDERABLES Final Resul t [facility] [address] * Ethanol, Serum (10/06/2024 1:04 AM EDT) Ethanol <10 0 - 10 mg/dL 10/06/2024 2:08 AM EDT [facility] Serum 10/06/2024 1:04 AM EDT 10/06/2024 1:30 AM EDT Bisi Hernandez DO LAB BLOOD ORDERABLES Final Resul t Performing Organization Address City/[facility]/ZIP Co de Phone Number [facility] [address] * #2 Blood culture-Peripheral site 2 (10/06/2024 1:04 AM EDT) Culture Result No Growth After 5 Days [facility] Blood BLOOD SPECIMEN / Unknown 10/06/2024 1:04 AM EDT 10/06/2024 4:57 AM EDT Narrative [facility] - 10/11/2024 5:05 AM EDT Suboptimal volume of blood received. Interpret results with caution. [employer] DOZIER MICROBIOLOGY - GENERAL ORDERABLE S Final Result [facility] [address] [facility]. [address] * #1 Blood culture-Peripheral site 1 (10/06/2024 1:04 AM EDT) Culture Result No Growth After 5 Days [facility] Blood BLOOD SPECIMEN / Unknown 10/06/2024 1:04 AM EDT 10/06/2024 4:57 AM EDT Narrative [facility] - 10/11/2024 5:01 AM EDT Suboptimal volume of blood received. Interpret results with caution. Bisi Akana maría DO MICROBIOLOGY - GENERAL ORDERABLE S Final Result Performing Organization Address City/[facility]/ZIP Co de Phone Number [facility] [address] [facility]. [address] * Ammonia (10/06/2024 1:04 AM EDT) Ammonia 77 27 - 90 ug/dL 10/06/2024 2:00 AM EDT [facility] Plasma 10/06/2024 1:04 AM EDT 10/06/2024 1:30 AM EDT [facility] BLOOD ORDERABLES Final Resul t Performing Organization Address [facility] Co de Phone Number [facility] [address] [facility]. [address] * Thyroid Function [place] (10/06/2024 1:04 AM EDT) TSH 0.84 0.45 - 4.12 uIU/mL 10/06/2024 2:20 AM EDT [facility] Serum 10/06/2024 1:04 AM EDT 10/06/2024 1:39 AM EDT [facility] BLOOD ORDERABLES Final Resul t Performing Organization Address [facility]/ZIP Co de Phone Number [facility] [address] [facility]. [address] * (ABNORMAL) Protime-INR (10/06/2024 1:04 AM EDT) Protime 22.8(H) 12.1 - 15.1 seconds 10/06/2024 1:48 AM EDT [facility] INR 1.9(H) 0.9 - 1.1 10/06/2024 1:48 AM EDT [facility] Comment: RECOMMENDED THERAPEUTIC RANGES USING INR : Stable oral anticoagulant therapy: 2.0 - 3.0 Mechanical prosthetic heart valve: 2.5 - 3.5 Recurrent acute myocardial infarction: 2.5 - 3.5 Plasma 10/06/2024 1:04 AM EDT 10/06/2024 1:30 AM EDT us JAZIO DO LAB BLOOD ORDERABLES Final Resul t Performing Organization Address City/[facility]/ZIP Co de Phone Number [facility] [address] [facility]. [address] * Lactic Acid, STAT (10/06/2024 1:04 AM EDT) Lactate 1.2 0.5 - 2.2 mmol/L 10/06/2024 1:59 AM EDT [facility] Plasma 10/06/2024 1:04 AM EDT 10/06/2024 1:30 AM EDT us JAZIO DO LAB BLOOD ORDERABLES Final Resul t Performing Organization Address [facility] de Phone Number [facility] [address] * (ABNORMAL) CBC, STAT (10/06/2024 1:04 AM EDT) WBC 7.9 3.8 - 10.8 10E3/uL 10/06/2024 2:36 AM EDT [facility] RBC 2.76(L) 4.20 - 5.80 10E6/uL 10/06/2024 2:36 AM EDT [facility] Hemoglobin 9.9(L) 13.2 - 17.1 g/dL 10/06/2024 2:36 AM EDT [facility] Hematocrit 28.0(L) 38.5 - 50.0 % 10/06/2024 2:36 AM EDT [facility] MCV 101.5(H) 80.0 - 100.0 fL 10/06/2024 2:36 AM EDT [facility] MCH 35.7(H) 27.0 - 33.0 pg 10/06/2024 2:36 AM EDT [facility] MCHC 35.2 32.0 - 36.0 g/dL 10/06/2024 2:36 AM EDT [facility] RDW 17.9(H) 11.0 - 15.0 % 10/06/2024 2:36 AM EDT [facility] Platelets 58(L) 140 - 400 10E3/uL 10/06/2024 2:36 AM EDT [facility] Comment: Specimen checked for clots. None detected. Slide Reviewed for PLT Clumps. None Seen. MPV 8.2 7.5 - 11.5 fL 10/06/2024 2:36 AM EDT [facility] Whole Blood 10/06/2024 1:04 AM EDT 10/06/2024 1:31 AM EDT us Bisi Hernandez DO LAB BLOOD ORDERABLES Final Resul t [facility] [address] * (ABNORMAL) Comprehensive Metabolic Panel (10/06/2024 1:04 AM EDT) Sodium 127(L) 133 - 146 mmol/L 10/06/2024 2:05 AM EDT [facility] Potassium 4.5 3.5 - 5.3 mmol/L 10/06/2024 2:05 AM EDT [facility] Chloride 99 98 - 110 mmol/L 10/06/2024 2:05 AM EDT [facility] CO2 18(L) 21 - 33 mmol/L 10/06/2024 2:05 AM EDT [facility] Anion Gap 10 3 - 16 mmol/L 10/06/2024 2:05 AM EDT [facility] BUN 59(H) 7 - 25 mg/dL 10/06/2024 2:05 AM EDT [facility] Creatinine 3.54(H) 0.60 - 1.30 mg/dL 10/06/2024 2:05 AM EDT [facility] Glucose 116(H) 70 - 100 mg/dL 10/06/2024 2:05 AM EDT [facility] Calcium 9.0 8.6 - 10.3 mg/dL 10/06/2024 2:05 AM EDT [facility] Total Bilirubin 14.8(H) 0.0 - 1.5 mg/dL 10/06/2024 2:05 AM EDT [facility] AST 61(H) 13 - 39 U/L 10/06/2024 2:05 AM EDT [facility] ALT 33 7 - 52 U/L 10/06/2024 2:05 AM EDT [facility] Alkaline Phosphatase 174(H) 36 - 125 U/L 10/06/2024 2:05 AM EDT [facility] Total Protein 5.2(L) 6.4 - 8.9 g/dL 10/06/2024 2:05 AM EDT [facility] Albumin 3.3(L) 3.5 - 5.7 g/dL 10/06/2024 2:05 AM EDT [facility] Osmolality, Calculated 282 278 - 305 mOsm/kg 10/06/2024 2:05 AM EDT [facility] EGFR 21 10/06/2024 2:05 AM EDT [facility] Comment:As of 2021, the estimated [...] Disease. Am J Kidney Dis. 2020. Plasma 10/06/2024 1:04 AM EDT 10/06/2024 1:40 AM EDT us Bisi Hernandez DO LAB BLOOD ORDERABLES Final Resul t [facility] [address] [place] [id number] documented in this encounter Visit Diagnoses Diagnosis Acute kidney injury superimposed on CKD (CMS-HCC)- Primary Alcoholic cirrhosis of liver with ascites (CMS-HCC) NADIYA (acute kidney injury) (CMS-HCC) Metabolic encephalopathy SBP (spontaneous bacterial peritonitis) (CMS-HCC) Spontaneous bacterial peritonitis Neck pain with history of cervical spinal surgery Metabolic acidosis with normal anion gap and bicarbonate losses Encounter for pre-transplant evaluation for chronic liver disease Thrombocytopenia (CMS-HCC) Unspecified thrombocytopenia Coagulopathy (CMS-HCC) Other and unspecified coagulation defects Anemia, unspecified type Decompensated cirrhosis (CMS-HCC) Cirrhosis of liver with ascites, unspecified hepatic cirrhosis type (CMS-HCC) Nonspecific abnormal finding on cardiac evaluation Pain Generalized pain Metabolic acidosis with normal anion gap and bicarbonate losses Decompensated cirrhosis (CMS-HCC) Renal mass, left Unspecified disorder of kidney and ureter Metabolic encephalopathy GERD (gastroesophageal reflux disease) Esophageal reflux Thrombocytopenia (CMS-HCC) Unspecified thrombocytopenia Aphasia SBP (spontaneous bacterial peritonitis) (CMS-HCC) Spontaneous bacterial peritonitis Neck pain with history of cervical spinal surgery Anemia Unspecified anemia Cirrhosis of liver with ascites, unspecified hepatic cirrhosis type (CMS-HCC) documented in this encounter Administered Medications Inactive Administered Medications - up to 3 most recent administrations Medication Order MAR Action Action Date Dose Rate Site acetaminophen (TYLENOL) tablet 975 mg 975 mg, Oral, Every 12 hours PRN, mild pain (NRS 1-3); no comparable CPOT score, moderate pain (NRS 4-6) or if patient is non-communicative (CPOT 3-5), Starting on Sun10/10/24 at 2155, Maximum dose of acetaminophen is 2000 mg (2 grams) from all sources in 24 hours. Given 10/14/2024 11:52 PM EDT 975 mg albumin human 25% 12.5 g, Intravenous, Every 30 min, First dose on Sun10/06/24 at 0200, For 8 doses, In Emergencies, may administer as rapidly as needed to improve clinical status., Select indication for use: Cirrhosis: Hepatorenal Syndrome, at 100 mL/hr New Bag 10/06/2024 10:51 AM EDT 12.5 g 100 mL/hr New Bag 10/06/2024 9:32 AM EDT 12.5 g 100 mL/hr New Bag 10/06/2024 8:38 AM EDT 12.5 g 100 mL/hr albumin human 25% 12.5 g, Intravenous, Every 30 min, First dose on Sun10/06/24 at 1600, For 8 doses, In Emergencies, may administer as rapidly as needed to improve clinical status., Select indication for use: Cirrhosis: Hepatorenal Syndrome, at 100 mL/hr New Bag 10/06/2024 9:15 PM EDT 12.5 g 100 mL/hr New Bag 10/06/2024 8:43 PM EDT 12.5 g 100 mL/hr New Bag 10/06/2024 8:09 PM EDT 12.5 g 100 mL/hr albumin human 25% 12.5 g, Intravenous, Every 30 min, First dose (after last reorder) on Sun10/07/24 at 1200, For 8 doses, In Emergencies, may administer as rapidly as needed to improve clinical status., Select indication for use: Cirrhosis: Hepatorenal Syndrome, at 100 mL/hr New Bag 10/07/2024 5:10 PM EDT 12.5 g 100 mL/h r New Bag 10/07/2024 4:45 PM EDT 12.5 g 100 mL/hr New Bag 10/07/2024 4:01 PM EDT 12.5 g 100 mL/hr albumin human 25% 12.5 g, Intravenous, Every 30 min, First dose on Sun10/10/24 at 1600, For 4 doses, Dosing is 6 grams/L of ascites fluid removed. In Emergencies, may administer as rapidly as needed to improve clinical status., Select indication for use: Cirrhosis: Large Volume Paracentesis (>5 L), at 100 mL/hr New Bag 10/10/2024 5:24 PM EDT 12.5 g 100 mL/hr New Bag 10/10/2024 4:51 PM EDT 12.5 g 100 mL/hr New Bag 10/10/2024 4:18 PM EDT 12.5 g 100 mL/hr cefTRIAXone (ROCEPHIN) 2 g in sodium chloride 0.9% 20 mL IV Push 2 g, Intravenous, at 240 mL/hr, Every 24 hours, First dose (after last modification) on Sun10/06/24 at 1400, For 6 doses, ADMINISTER IV PUSH. Infuse over 5 minutes. Draw up 20 mL Sodium Chloride 0.9% into empty syringe. Inject 20 mL into vial of Ceftriaxone. Shake well. Withdraw volume into syringe and administer immediately. Given 10/11/2024 1:12 PM EDT 2 g 240 mL/ hr Given 10/10/2024 3:59 PM EDT 2 g 240 mL/hr Given 10/09/2024 1:12 PM EDT 2 g 240 mL/hr ciprofloxacin HCl (CIPRO) tablet 500 mg 500 mg, Oral, Every 24 hours, First dose on Sun10/12/24 at 0900 Given 10/17/2024 8:50 AM EDT 500 mg Given 10/16/2024 8:34 AM EDT 500 mg Given 10/15/2024 8:20 AM EDT 500 mg diphenhydrAMINE-zinc acetate (BENADRYL) cream Topical, 3 times daily PRN, Itching, Starting on Sun10/10/24 at 1139 DOBUTamine (DOBUTREX) 200 mg in sodium chloride 0.9 % 50 mL infusion for Stress Test 1-20 mcg/kg/min 118.8 kg (1.782-35.64 mL/hr, rounded to 1.8-35.6 mL/hr), Intravenous, Administer over 30 Minutes, Once, On Tish 10/09/24 at 1430, For 1 dose, Administer per protocol New Bag 10/09/2024 3:21 PM EDT 5 mcg/kg/min 8.9 mL/ hr FLUoxetine (PROZAC) capsule 20 mg 20 mg, Oral, Daily, First dose on Sun10/17/24 at 0900 Given 10/17/2024 9:38 AM EDT 20 mg folic acid (FOLVITE) tablet 1 mg 1 mg, Oral, Daily, First dose on Sun10/06/24 at 0900 Given 10/17/2024 8:48 AM EDT 1 mg Given 10/16/2024 8:34 AM EDT 1 mg Given 10/15/2024 8:20 AM EDT 1 mg gadobutrol (GADAVIST) 1 mmol/1 mL IV syringe 12 mL 12 mL (rounded from 11.95 mL = 0.1 mL/kg 119.5 kg), Intravenous, IMG once as needed, contrast, Starting on Sun10/14/24 at 0003, For 1 dose Given 10/13/2024 11:42 PM EDT 10 mLs heparin (porcine) injection 5,000 Units 5,000 Units, Subcutaneous, Every 8 hours scheduled (3 times per day), First dose on Sun10/06/24 at 0500 Given 10/16/2024 8:23 PM EDT 5,000 Units Right Arm Given 10/16/2024 1:17 PM EDT 5,000 Units L eft Arm Given 10/16/2024 6:36 AM EDT 5,000 Units L eft Arm hydrOXYzine HCL (ATARAX) tablet 25 mg 25 mg, Oral, Once, On 10/11/24 at 2230, For 1 doseIndications:pruritus of skin Given 10/11/2024 10:35 PM EDT 25 m g lactulose (CHRONULAC) 10 gram/15 mL solution 20 g 20 g, Oral, 3 times daily, First dose (after last modification) on Sun10/06/24 at 0900, Titrate to 2-3 bowel movements a day Given 10/16/2024 1:16 PM EDT 20 g Given 10/16/2024 8:34 AM EDT 20 g Given 10/15/2024 9:04 PM EDT 20 g levothyroxine (SYNTHROID) tablet 75 mcg 75 mcg, Oral, Every morning before breakfast, First dose on Sun10/06/24 at 0730, Please hold tube feeds 30 minutes before and 90 minutes after levothyroxine administration. Given 10/17/2024 6:06 AM E DT 75 mcg Given 10/16/2024 6:36 AM EDT 75 mcg Given 10/15/2024 8:20 AM EDT 75 mcg loratadine (CLARITIN) tablet 10 mg 10 mg, Oral, Daily, First dose on Sun10/10/24 at 1200 Given 10/11/2024 8:48 AM EDT 10 mg Given 10/10/2024 4:00 PM EDT 10 mg loratadine (CLARITIN) tablet 10 mg 10 mg, Oral, Daily as needed, Allergies, itching, Starting on 10/11/24 at 1030 magnesium sulfate in D5W 100 mL 1 gram/100 mL IVPB 1 g 1 g, Intravenous, at 100 mL/hr, Once, On 10/12/24 at 0700, For 1 dose New Bag 10/12/2024 8:31 AM EDT 1 g 100 mL/hr magnesium sulfate in sterile water 50 mL IVPB 2 g 2 g, Intravenous, Administer over 120 Minutes, Once, On Sun10/07/24 at 0730, For 1 dose New Bag 10/07/2024 10:18 AM EDT 2 g 25 mL/hr magnesium sulfate in sterile water 50 mL IVPB 2 g 2 g, Intravenous, Administer over 120 Minutes, Once, On Sun10/09/24 at 0800, For 1 dose New Bag 10/09/2024 8:20 AM EDT 2 g 25 mL/hr magnesium sulfate in sterile water 50 mL IVPB 2 g 2 g, Intravenous, Administer over 120 Minutes, Once, On Sun10/10/24 at 0730, For 1 dose New Bag 10/10/2024 9:14 AM EDT 2 g 25 mL/hr magnesium sulfate in sterile water 50 mL IVPB 2 g 2 g, Intravenous, Administer over 120 Minutes, Once, On Sun10/15/24 at 0730, For 1 dose New Bag 10/15/2024 8:27 AM EDT 2 g 25 mL/hr melatonin tablet Tab 3 mg 3 mg, Oral, At Bedtime (2100), First dose on Sun10/10/24 at 2100, FOR INSOMNIA Given 10/12/2024 8:46 PM EDT 3 mg Given 10/11/2024 9:15 PM EDT 3 mg Given 10/10/2024 9:32 PM EDT 3 mg melatonin tablet Tab 6 mg 6 mg, Oral, Daily with dinner, First dose (after last modification) on Sun10/13/24 at 1700, FOR INSOMNIA methocarbamoL (ROBAXIN) tablet 500 mg 500 mg, Oral, Once, On Sun10/06/24 at 0630, For 1 dose Given 10/06/2024 6:25 AM EDT 500 mg methocarbamoL (ROBAXIN) tablet 500 mg 500 mg, Oral, Once, On Sun10/07/24 at 0400, For 1 dose Given 10/07/2024 3:50 AM EDT 500 mg methocarbamoL (ROBAXIN) tablet 500 mg 500 mg, Oral, 3 times daily, First dose on Sun10/07/24 at 0900 Given 10/17/2024 8:50 AM EDT 500 mg Given 10/16/2024 8:23 PM EDT 500 mg Given 10/16/2024 1:17 PM EDT 500 mg metoprolol tartrate (LOPRESSOR) injection 2.5 mg 2.5 mg, Intravenous, Every 5 min PRN, Do NOT give if the following is noted: hypotension (less than 100 SBP), cocaine use, first degree block, allergy to beta blockers., Starting on Tish 10/09/24 at 1450, For 4 doses, Administer 2.5 mg IVP for dobutamine reversal. May repeat dose as ordered per MD. CMU Telemetry Monitoring Required, do not discontinue CMU. midodrine (PROAMATINE) tablet 10 mg 10 mg, Oral, 3 times daily, First dose on Tish 10/09/24 at 1300 Given 10/17/2024 8:49 AM EDT 10 mg Given 10/16/2024 8:23 PM EDT 10 mg Given 10/16/2024 1:17 PM EDT 10 mg ondansetron (ZOFRAN) injection 4 mg 4 mg, Intravenous, Every 8 hours PRN, Nausea and/or Vomiting, Starting on Sun10/14/24 at 1947 Given 10/14/2024 8 :20 PM EDT 4 mg oxyCODONE (ROXICODONE) immediate release tablet 2.5 mg 2.5 mg, Oral, Every 6 hours PRN, moderate pain (NRS 4-6) or if patient is non-communicative (CPOT 3-5), Starting on Counts Include [facility] 10/07/24 at 1205 oxyCODONE (ROXICODONE) immediate release tablet 5 mg 5 mg, Oral, Every 6 hours PRN, severe pain (NRS 7-10) or if patient is non-communicative (CPOT 6-8), Starting on 10/07/24 at 1205 Given 10/17/2024 8:48 AM EDT 5 mg Given 10/17/2024 2:45 AM EDT 5 mg Given 10/16/2024 8:31 PM EDT 5 mg oxyCODONE (ROXICODONE) immediate release tablet 5 mg 5 mg, Oral, Once, On 10/14/24 at 0130, For 1 dose Given 10/14/2024 1:13 AM EDT 5 mg oxyCODONE (ROXICODONE) immediate release tablet 5 mg 5 mg, Oral, Once, On Sun10/15/24 at 0100, For 1 dose Given 10/15/2024 1:02 AM EDT 5 mg oxyCODONE (ROXICODONE) immediate release tablet 5 mg 5 mg, Oral, Once, On Sun10/15/24 at 1700, For 1 dose Given 10/15/2024 4:49 PM EDT 5 mg pantoprazole (PROTONIX) EC tablet 40 mg 40 mg, Oral, Every morning before breakfast, First dose on Sun10/06/24 at 0730, Do Not Crush Given 10/17/2024 6:06 AM EDT 40 mg Given 10/16/2024 6:35 AM EDT 40 mg Given 10/15/2024 8:20 AM EDT 40 mg perflutren (OPTISON) Susp 0.66 mg 0.66 mg, Intravenous, IMG once as needed, contrast, Starting on Tish 10/09/24 at 1536, For 1 dose Given 10/09/2024 3:09 PM EDT 0.66 mg potassium chloride (KLOR-CON M20) CR tablet 20 mEq 20 mEq, Oral, Once, On Sun10/13/24 at 0700, For 1 dose, FOR PATIENTS UNABLE TO SWALLOW LARGE TABLETS, but can take liquids orally: Place tablet(s) in room temperature or warm water (@ 2-4 ounces) and allow to disintegrate for ~ 30 seconds. Then stir well and administer immediately before particles settle. NOTE: not all particles will go into solution. DO NOT CRUSH or CHEW; TABLET(S) MAY BE SPLIT Given 10/13/2024 8:14 AM EDT 20 mEq potassium chloride (KLOR-CON M20) CR tablet 40 mEq 40 mEq, Oral, Once, On Sun10/08/24 at 0800, For 1 dose, FOR PATIENTS UNABLE TO SWALLOW LARGE TABLETS, but can take liquids orally: Place tablet(s) in room temperature or warm water (@ 2-4 ounces) and allow to disintegrate for ~ 30 seconds. Then stir well and administer immediately before particles settle. NOTE: not all particles will go into solution. DO NOT CRUSH or CHEW; TABLET(S) MAY BE SPLIT Given 10/08/2024 8:08 AM EDT 40 mEq potassium chloride (KLOR-CON M20) CR tablet 40 mEq 40 mEq, Oral, Once, On Sun10/08/24 at 1200, For 1 dose, FOR PATIENTS UNABLE TO SWALLOW LARGE TABLETS, but can take liquids orally: Place tablet(s) in room temperature or warm water (@ 2-4 ounces) and allow to disintegrate for ~ 30 seconds. Then stir well and administer immediately before particles settle. NOTE: not all particles will go into solution. DO NOT CRUSH or CHEW; TABLET(S) MAY BE SPLIT Given 10/08/2024 1:00 PM EDT 40 mEq potassium chloride (KLOR-CON M20) CR tablet 40 mEq 40 mEq, Oral, Once, On Sun10/09/24 at 0800, For 1 dose, FOR PATIENTS UNABLE TO SWALLOW LARGE TABLETS, but can take liquids orally: Place tablet(s) in room temperature or warm water (@ 2-4 ounces) and allow to disintegrate for ~ 30 seconds. Then stir well and administer immediately before particles settle. NOTE: not all particles will go into solution. DO NOT CRUSH or CHEW; TABLET(S) MAY BE SPLIT Given 10/09/2024 8:03 AM EDT 40 mEq potassium chloride (KLOR-CON M20) CR tablet 40 mEq 40 mEq, Oral, Once, On Sun10/09/24 at 1200, For 1 dose, FOR PATIENTS UNABLE TO SWALLOW LARGE TABLETS, but can take liquids orally: Place tablet(s) in room temperature or warm water (@ 2-4 ounces) and allow to disintegrate for ~ 30 seconds. Then stir well and administer immediately before particles settle. NOTE: not all particles will go into solution. DO NOT CRUSH or CHEW; TABLET(S) MAY BE SPLIT Given 10/09/2024 12:05 PM EDT 40 mEq potassium chloride (KLOR-CON M20) CR tablet 40 mEq 40 mEq, Oral, Once, On Sun10/09/24 at 1430, For 1 dose, FOR PATIENTS UNABLE TO SWALLOW LARGE TABLETS, but can take liquids orally: Place tablet(s) in room temperature or warm water (@ 2-4 ounces) and allow to disintegrate for ~ 30 seconds. Then stir well and administer immediately before particles settle. NOTE: not all particles will go into solution. DO NOT CRUSH or CHEW; TABLET(S) MAY BE SPLIT Given 10/09/2024 4:53 PM EDT 40 mEq potassium chloride (KLOR-CON M20) CR tablet 40 mEq 40 mEq, Oral, Once, On Sun10/10/24 at 0730, For 1 dose, FOR PATIENTS UNABLE TO SWALLOW LARGE TABLETS, but can take liquids orally: Place tablet(s) in room temperature or warm water (@ 2-4 ounces) and allow to disintegrate for ~ 30 seconds. Then stir well and administer immediately before particles settle. NOTE: not all particles will go into solution. DO NOT CRUSH or CHEW; TABLET(S) MAY BE SPLIT Given 10/10/2024 8:57 AM EDT 40 mEq potassium chloride (KLOR-CON M20) CR tablet 40 mEq 40 mEq, Oral, Once, On Sun10/11/24 at 0700, For 1 dose, FOR PATIENTS UNABLE TO SWALLOW LARGE TABLETS, but can take liquids orally: Place tablet(s) in room temperature or warm water (@ 2-4 ounces) and allow to disintegrate for ~ 30 seconds. Then stir well and administer immediately before particles settle. NOTE: not all particles will go into solution. DO NOT CRUSH or CHEW; TABLET(S) MAY BE SPLIT Given 10/11/2024 8:48 AM EDT 40 mEq potassium chloride (KLOR-CON M20) CR tablet 40 mEq 40 mEq, Oral, Once, On Sun10/12/24 at 0700, For 1 dose, FOR PATIENTS UNABLE TO SWALLOW LARGE TABLETS, but can take liquids orally: Place tablet(s) in room temperature or warm water (@ 2-4 ounces) and allow to disintegrate for ~ 30 seconds. Then stir well and administer immediately before particles settle. NOTE: not all particles will go into solution. DO NOT CRUSH or CHEW; TABLET(S) MAY BE SPLIT Given 10/12/2024 8:31 AM EDT 40 mEq potassium chloride (KLOR-CON M20) CR tablet 40 mEq 40 mEq, Oral, Once, On Sun10/14/24 at 0800, For 1 dose, FOR PATIENTS UNABLE TO SWALLOW LARGE TABLETS, but can take liquids orally: Place tablet(s) in room temperature or warm water (@ 2-4 ounces) and allow to disintegrate for ~ 30 seconds. Then stir well and administer immediately before particles settle. NOTE: not all particles will go into solution. DO NOT CRUSH or CHEW; TABLET(S) MAY BE SPLIT Given 10/14/2024 8:02 AM EDT 40 mEq potassium chloride (KLOR-CON M20) CR tablet 40 mEq 40 mEq, Oral, Once, On Sun10/15/24 at 0730, For 1 dose, FOR PATIENTS UNABLE TO SWALLOW LARGE TABLETS, but can take liquids orally: Place tablet(s) in room temperature or warm water (@ 2-4 ounces) and allow to disintegrate for ~ 30 seconds. Then stir well and administer immediately before particles settle. NOTE: not all particles will go into solution. DO NOT CRUSH or CHEW; TABLET(S) MAY BE SPLIT Given 10/15/2024 8:20 AM EDT 40 mEq rifAXIMin (XIFAXAN) tablet 550 mg 550 mg, Oral, 2 times daily, First dose on Sun10/06/24 at 0200 Given 10/17/2024 8:50 AM EDT 550 mg Given 10/16/2024 8:23 PM EDT 550 mg Given 10/16/2024 8:34 AM EDT 550 mg sertraline (ZOLOFT) tablet 50 mg 50 mg, Oral, Daily, First dose on Sun10/16/24 at 0900 Given 10/16/2024 8:33 AM EDT 50 mg sodium bicarbonate 150 mEq in sterile water 1,000 mL IV infusion 75 mL/hr, Intravenous, Continuous, Starting on Sun10/13/24 at 1600, For 15 hours New Bag 10/13/2024 4:25 PM EDT 75 mL/hr 75 mL/hr sodium bicarbonate tablet 1,300 mg 1,300 mg, Oral, 3 times daily, First dose on Sun10/06/24 at 0900 Given 10/17/2024 8:49 AM EDT 1,300 mg Given 10/16/2024 8:23 PM EDT 1,300 mg Given 10/16/2024 1:17 PM EDT 1,300 mg sodium chloride 0.9 % IV infusion 20 mL/hr, Intravenous, Continuous, Starting on Sun10/08/24 at 0730, For 12 hours, Normal Saline 0.9% run at KVO only during administration of blood products. New Bag 10/08/2024 10:24 AM EDT 20 mL/ hr 20 mL/hr thiamine HCl (VITAMIN B-1) tablet 100 mg 100 mg, Oral, Daily, First dose on Sun10/06/24 at 0900 Given 10/17/2024 9:38 AM EDT 100 mg Given 10/16/2024 8:33 AM EDT 100 mg Given 10/15/2024 8:19 AM EDT 100 mg ursodioL (ACTIGALL) capsule 300 mg 300 mg, Oral, 2 times daily, First dose on Sun10/06/24 at 0200 Given 10/17/2024 8:49 AM EDT 300 mg Given 10/16/2024 8:23 PM EDT 300 mg Given 10/16/2024 8:33 AM EDT 300 mg vancomycin (VANCOCIN) 1,000 mg in sodium chloride 0.9 % 250 mL [id number] 1,000 mg, Intravenous, Administer over 60 Minutes, Once, Contact pharmacy if there is a question/concern of whether vancomycin should be given based on serum drug levels. Use [id number] Adapter - Mix Thoroughly Before Administration, Indication? Infection-Suspected, Site of diagnosed infections (select all that apply): Abdominal/Pelvic New Bag 10/08/2024 12:59 PM EDT 1,000 mg 250 mL/hr vancomycin (VANCOCIN) 1,500 mg in sodium chloride 0.9 % 250 mL [id number] 1,500 mg, Intravenous, Administer over 90 Minutes, Once, Contact pharmacy if there is a question/concern of whether vancomycin should be given based on serum drug levels. Use [id number] Adapter - Mix Thoroughly Before Administration, Indication? Infection-Suspected, Site of diagnosed infections (select all that apply): Abdominal/Pelvic New Bag 10/09/2024 10:19 AM EDT 1,500 mg 166.7 mL/hr vancomycin (VANCOCIN) 2,750 mg in sodium chloride 0.9 % 500 mL IVPB 2,750 mg, Intravenous, Administer over 150 Minutes, Once, Contact pharmacy if there is a question/concern of whether vancomycin should be given based on serum drug levels., Indication? Infection-Suspected, Site of diagnosed infections (select all that apply): Abdominal/Pelvic New Bag 10/06/2024 2:13 PM EDT 2,750 mg 200 mL/hr zinc sulfate (ZINCATE) capsule 220 mg 220 mg, Oral, Daily, First dose on Sun10/06/24 at 0900, each capsule contains 50 mg elemental zinc Given 10/17/2024 8:49 AM EDT 220 mg Given 10/16/2024 8:34 AM EDT 220 mg Given 10/15/2024 8:20 AM EDT 220 mg documented in this encounter Active and Recently Administered Medications Times are shown in EDT. Scheduled Medication Order 10/15/2024 10/16/2024 10/17/2024 ciprofloxacin HCl (CIPRO) tablet 500 mg 500 mg, Oral, Every 24 hours, First dose on Sun10/12/24 at 0900 0820 (Given - Provider: Anu Wolff RN) 0834 (Given - Provider: Anu Wolff RN) 0850 (Given - Provider: Suzette Arciniega, ЮЛИЯ) FLUoxetine (PROZAC) capsule 20 mg 20 mg, Oral, Daily, First dose on Sun10/17/24 at 0900 0938 (Given - Provider: Suzette Arciniega, ЮЛИЯ) folic acid (FOLVITE) tablet 1 mg 1 mg, Oral, Daily, First dose on Sun10/06/24 at 0900 0820 (Given - Provider: Anu Wolff RN) 0834 (Given - Provider: Anu Wolff RN) 0848 (Given - Provider: Suzette Arciniega, ЮЛИЯ) heparin (porcine) injection 5,000 Units 5,000 Units, Subcutaneous, Every 8 hours scheduled (3 times per day), First dose on Sun10/06/24 at 0500 0622 (Not Given - Provider: Minh Torres RN - Reason: Patient/family refused)1335 (Given - Provider: Anu Wolff RN)2103 (Given - Provider: Chelsy Bush RN) 0636 (Given - Provider: Chelsy Bush, RN)1317 (Given - Provider: Anu Wolff RN)2022 (Given - Provider: Soco Milton, ЮЛИЯ) 0607 (Not Given - Provider: Soco Milton, ЮЛИЯ - Reason: Patient/family refused) lactulose (CHRONULAC) 10 gram/15 mL solution 20 g 20 g, Oral, 3 times daily, First dose (after last modification) on Sun10/06/24 at 0900, Titrate to 2-3 bowel movements a day 0820 (Given - Provider: Anu Wolff RN)1354 (Given - Provider: Anu Wolff RN)2103 (Given - Provider: Chelsy Bush, ЮЛИЯ) 0834 (Given - Provider: Anu Wolff RN)131 (Given - Provider: Anu Wolff RN)2022 (Not Given - Provider: Soco Milton RN - Reason: Order parameters not met) 0851 (Not Given - Provider: Suzette Arciniega, RN - Reason: Patient/family refused) levothyroxine (SYNTHROID) tablet 75 mcg 75 mcg, Oral, Every morning before breakfast, First dose on Sun10/06/24 at 0730, Please hold tube feeds 30 minutes before and 90 minutes after levothyroxine administration. 0820 (Given - Provider: Anu Wolff RN) 0636 (Given - Provider: Chelsy Bush RN) 0606 (Given - Provider: Soco Milton, ЮЛИЯ) magnesium sulfate in sterile water 50 mL IVPB 2 g (COMPLETED) 2 g, Intravenous, Administer over 120 Minutes, Once, On Sun10/15/24 at 0730, For 1 dose 0827 (New Bag - Provider: Anu Wolff RN) melatonin tablet Tab 6 mg 6 mg, Oral, Daily with dinner, First dose (after last modification) on Sun10/13/24 at 1700, FOR INSOMNIA 2103 (Not Given - Provider: Chelsy Bush RN - Reason: Patient/family refused) 2032 (Not Given - Provider: Soco Milton RN - Reason: Patient/family refused) methocarbamoL (ROBAXIN) tablet 500 mg 500 mg, Oral, 3 times daily, First dose on Sun10/07/24 at 0900 0820 (Given - Provider: Anu Wolff RN)1335 (Given - Provider: Anu Wolff RN)2102 (Given - Provider: Chelsy Bush, ЮЛИЯ) 0833 (Given - Provider: Anu Wolff RN)1317 (Given - Provider: Anu Wolff RN)2022 (Given - Provider: Soco Milton, ЮЛИЯ) 0850 (Given - Provider: Suzette Arciniega, RN) midodrine (PROAMATINE) tablet 10 mg 10 mg, Oral, 3 times daily, First dose on Sun10/09/24 at 1300 0820 (Given - Provider: Anu Wolff RN)1335 (Given - Provider: Anu Wolff RN)210 (Given - Provider: Chelsy Bush RN) 0833 (Given - Provider: Anu Wolff RN)1317 (Given - Provider: Anu Wolff RN)2022 (Given - Provider: Soco Milton, ЮЛИЯ) 0849 (Given - Provider: Suzette Arciniega RN) oxyCODONE (ROXICODONE) immediate release tablet 5 mg (COMPLETED) 5 mg, Oral, Once, On Sun10/15/24 at 0100, For 1 dose 0102 (Given - Provider: Minh Torres RN) oxyCODONE (ROXICODONE) immediate release tablet 5 mg (COMPLETED) 5 mg, Oral, Once, On Sun10/15/24 at 1700, For 1 dose 1649 (Given - Provider: Anu Wolff RN) pantoprazole (PROTONIX) EC tablet 40 mg 40 mg, Oral, Every morning before breakfast, First dose on Sun10/06/24 at 0730, Do Not Crush 0820 (Given - Provider: Anu Wolff RN) 0635 (Given - Provider: Chelsy Bush RN) 0606 (Given - Provider: Soco Milton RN) potassium chloride (KLOR-CON M20) CR tablet 40 mEq (COMPLETED) 40 mEq, Oral, Once, On Sun10/15/24 at 0730, For 1 dose, FOR PATIENTS UNABLE TO SWALLOW LARGE TABLETS, but can take liquids orally: Place tablet(s) in room temperature or warm water (@ 2-4 ounces) and allow to disintegrate for ~ 30 seconds. Then stir well and administer immediately before particles settle. NOTE: not all particles will go into solution. DO NOT CRUSH or CHEW; TABLET(S) MAY BE SPLIT 0820 (Given - Provider: Anu Wolff RN) rifAXIMin (XIFAXAN) tablet 550 mg 550 mg, Oral, 2 times daily, First dose on Sun10/06/24 at 0200 0820 (Given - Provider: Anu Wolff RN)2103 (Given - Provider: Chelsy Bush RN) 0834 (Given - Provider: Anu Wolff RN)2023 (Given - Provider: Soco Milton RN) 0850 (Given - Provider: Suzette Arciniega, ЮЛИЯ) sertraline (ZOLOFT) tablet 50 mg (CANCELED) 50 mg, Oral, Daily, First dose on Tish 10/16/24 at 0900 0833 (Given - Provider: Anu Wolff RN) sodium bicarbonate tablet 1,300 mg 1,300 mg, Oral, 3 times daily, First dose on Sun10/06/24 at 0900 0820 (Given - Provider: Anu Wolff RN)1335 (Given - Provider: Anu Wolff RN)2103 (Given - Provider: Chelsy Bush, ЮЛИЯ) 0833 (Given - Provider: Anu Wolff RN)1317 (Given - Provider: Anu Wolff RN)2022 (Given - Provider: Soco Milton RN) 0849 (Given - Provider: Suzette Arciniega, ЮЛИЯ) thiamine HCl (VITAMIN B-1) tablet 100 mg 100 mg, Oral, Daily, First dose on Sun10/06/24 at 0900 0819 (Given - Provider: Anu Wolff RN) 0833 (Given - Provider: Anu Wolff RN) 0938 (Given - Provider: Suzette Arciniega, ЮЛИЯ) ursodioL (ACTIGALL) capsule 300 mg 300 mg, Oral, 2 times daily, First dose on Sun10/06/24 at 0200 0820 (Given - Provider: Anu Wolff RN)211 (Given - Provider: Chelsy Bush, ЮЛИЯ) 0833 (Given - Provider: Anu Wolff RN)2022 (Given - Provider: Soco Milton RN) 0849 (Given - Provider: Suzette Arciniega, ЮЛИЯ) zinc sulfate (ZINCATE) capsule 220 mg 220 mg, Oral, Daily, First dose on Sun10/06/24 at 0900, each capsule contains 50 mg elemental zinc 0820 (Given - Provider: Anu Wolff RN) 0834 (Given - Provider: Anu Wolff RN) 0849 (Given - Provider: Suzette Arciniega, ЮЛИЯ) PRN Medication Order 10/15/2024 10/16/2024 10/17/2024 acetaminophen (TYLENOL) tablet 975 mg 975 mg, Oral, Every 12 hours PRN, mild pain (NRS 1-3); no comparable CPOT score, moderate pain (NRS 4-6) or if patient is non-communicative (CPOT 3-5), Starting on Sun10/10/24 at 2155, Maximum dose of acetaminophen is 2000 mg (2 grams) from all sources in 24 hours. diphenhydrAMINE-zinc acetate (BENADRYL) cream Topical, 3 times daily PRN, Itching, Starting on Sun10/10/24 at 1139 loratadine (CLARITIN) tablet 10 mg 10 mg, Oral, Daily as needed, Allergies, itching, Starting on 10/11/24 at 1030 metoprolol tartrate (LOPRESSOR) injection 2.5 mg 2.5 mg, Intravenous, Every 5 min PRN, Do NOT give if the following is noted: hypotension (less than 100 SBP), cocaine use, first degree block, allergy to beta blockers., Starting on Tish 10/09/24 at 1450, For 4 doses, Administer 2.5 mg IVP for dobutamine reversal. May repeat dose as ordered per MD. [facility] Telemetry Monitoring Required, do not discontinue CMU. ondansetron (ZOFRAN) injection 4 mg 4 mg, Intravenous, Every 8 hours PRN, Nausea and/or Vomiting, Starting on Sun10/14/24 at 1947 oxyCODONE (ROXICODONE) immediate release tablet 2.5 mg(Linked Group 1) 2.5 mg, Oral, Every 6 hours PRN, moderate pain (NRS 4-6) or if patient is non-communicative (CPOT 3-5), Starting on Sun10/07/24 at 1205 2108 (See Alternative - Provider: Chelsy Bush, ЮЛИЯ) 0156 (See Alternative - Provider: Chelsy Bush, ЮЛИЯ)0635 (See Alternative - Provider: Chelsy Bush RN)1322 (See Alternative - Provider: Anu Wolff RN)2031 (See Alternative - Provider: Soco Milton, ЮЛИЯ) 0245 (See Alternative - Provider: Soco Milton RN)0848 (See Alternative - Provider: Suzette Arciniega RN) oxyCODONE (ROXICODONE) immediate release tablet 5 mg(Linked Group 1) 5 mg, Oral, Every 6 hours PRN, severe pain (NRS 7-10) or if patient is non-communicative (CPOT 6-8), Starting on Sun10/07/24 at 1205 2108 (Given - Provider: Chelsy Bush, RN) 0156 (Given - Provider: Chelsy Bush, RN)0635 (Given - Provider: Chelsy Bush, RN)1322 (Given - Provider: Anu Wolff RN)2031 (Given - Provider: Soco Milton RN) 0245 (Given - Provider: Soco Milton RN)0848 (Given - Provider: Suzette rAciniega RN) Linked Groups Order Group 1: oxyCODONE (ROXICODONE) immediate release tablet 2.5 mgJump to med 2.5 mg, Oral, Every 6 hours PRN, moderate pain (NRS 4-6) or if patient is non-communicative (CPOT 3-5), Starting on Sun10/07/24 at 1205 Or oxyCODONE (ROXICODONE) immediate release tablet 5 mgJump to med 5 mg, Oral, Every 6 hours PRN, severe pain (NRS 7-10) or if patient is non-communicative (CPOT 6-8), Starting on Sun10/07/24 at 1205 documented in this encounter Additional Health Concerns Infection Onset Date Last Indicated Resolved Time C. difficile 09/09/2024 09/09/2024 10/27/2024 8:30 AM EDT Rule Out C. difficile 10/05/2024 10/05/20242024 10:04 AM EDT Rule Out COVID-19 10/06/2024 10/06/2024 10/06/2024 11:38 PM EDT Assessment Noted Time PHQ-9 Depression Total Score: 17 025 11:00 AM EDT documented as of this encounter Care Teams Loan Documentation Specialist Relationship Specialty Start Date End Date Enedina Mcguire NP [address] [place] [id number] PCP - General Internal Medicine 10/05/24 documented as of this encounter
--- OUTSIDE RECORDS SUMMARY | 2024-10-10 10:36 | XMS_ITS | Encounter Summary ---
Author Organization [facility] Address [facility] [place] [address] Care Team Providers Care Driver Name Role Phone Enedina Mcguire NP Primary Care Provider [phone] Source Comments This information has been disclosed [...] release of HIV test results or diagnoses. [id number] Health Reason for Visit * Auth/Cert (Routine) Specialty Diagnoses / Procedures Referred By Shane hernadez Referred To Contact General Internal Medicine Diagnoses [facility] [address] [place] [address] Phone: tel: Referral ID Status Reason Start Date Expiration Date Visits Re quested Visits Authorized [id number] 1 1 Encounter Details Date Type Department Care Team (Late st Contact Info) Description 10/10/2024 10:36 AM EDT - 10/10/2024 11:06 AM EDT Surgery [facility] ENDOSCOPY [address] [place] [address] Lino Soto MD [address] [place] [id number] EGD Surgery Details Date/Time Status Location OR Service Patient Class Case Class Case Type Trauma Case? 10/10/2024 10:36 AM Posted ENDOSCOPY E2 Gastroenterology Inpatient EGD/Sm Bowel Panel 1 Procedure LRB Anes Op Region Wound Class Comments EGD N/A MAC ([facility]) Clean Contaminated Surgeon Surgeon Role Service [...] time in the past 12 m [facility], were you homeless or living in a prison (including now)? No 10/06/2024 Yearly Questionnaire Answer [...] Kandy Fuentes - 10/17/2024 10:29 AM EDT [facility] Care Management Discharge Summary Patient [...] post discharge: Not Applicable Kandy BAE RN [phone] * William Blount MD - 10/17/2024 8:50 AM EDT [facility] Inpatient Discharge Summary Patient: Julien Gilbert Age: 39 y.o. CSN: [id number] Date of Admission: 10/05/2024 Date of Discharge: [...] Case IDs Date Procedure Surgeon Location Status [id number] 10/10/24 EGD Lino Soto MD ENDOSCOPY Comp [id number] 10/14/24 Left Heart Cath Irving Matta MD [...] at 10/08/2024 1:12 PM EDT US Duplex Iuk-Pgf-Ivnbpzw Comp Final Result IMPRESSION: ABDOMEN 1. Cirrhotic [...] 90 tablet Refills: 0 naloxone 4 mg/actuation [place] Commonly known as: NARCAN Apply 1 spray [...] These medications were sent to [facility] [address] [facility] [address] Hours: Sunday - Sunday: 8:00AM - 6:00PM FLUoxetine 20 MG capsule lactulose 10 gram/15 mL solution loratadine 10 mg tablet methocarbamoL 500 MG tablet midodrine 10 MG tablet naloxone 4 mg/actuation [place] oxyCODONE 5 MG immediate release tablet Discharge [...] Order Questions: Select Supplement: Boost-1 kcal/ml supplement ([facility] only) As listed above, low sodium [...] AM EDT 10/17/2024 naloxone (NARCAN) 4 mg/actuation [place] Apply 1 spray in one nostril if [...] - 10/17/2024 10:23 AM EDT [facility] PROGRESS NOTE Name: Julien Gilbert CSN: [id number] Consulted by: Chelsy Lerner MD Reason for [...] Yes Past Week naloxone (NARCAN) 4 mg/actuation [place] Apply 1 spray in one nostril if [...] nucleated cells, <2000 RBCs 10% Polynuclear, 90% [place] nuc. There were initial reports of gram [...] chemical dependency treatment as outpatient. - [facility] with no obstructive coronary disease - Psych eval for PTSD With recommendation of sertraline - Given his renal dysfunction, will plan to list for [facility] when he qualifies on 10/22/2024. Labs next week - Plan for d/c today Bobby Sidhu MD Transplant Mixer Operator Helper Hot Metal Please see the body of the resident, [...] <30 until October 22. Waiting for [facility] today. ASSESSMENT NADIYA on CKD, [...] Staff. Jeremiah Gamino PGY4 Nephrology. Pager no. [phone] Chief Complaint No chief complaint on file. [...] Hypertension, Other hyperlipidemia (07/26/2024), Renal cell carcinoma ([facility]), Thrombocytopenia ([facility]), and Thyroid disease. he has a [...] at 10/08/2024 1:12 PM EDT US Duplex Qcr-Bfv-Crmxxnc Comp Final Result IMPRESSION: ABDOMEN 1. Cirrhotic [...] no head imaging has been performed at [facility]. -CT Head w/o contrast -Imaging showed [...] Order Questions: Select Supplement: Boost-1 kcal/ml supplement ([facility] only) Code Status: Full Code Signed: WILLIAM BLOUNT MD 10/16/2024, 2:16 PM Cosigned by Chelsy Lerner MD at 10/16/2024 5:38 PM EDT Associated attestation - Chelsy Lerner MD - 10/16/2024 5:38 PM EDT [facility] Medicine Attending Supervision Note Julien Gilbert [...] another specialty or practice, other licensed professional (PT/OT/CLINICAL LAB CLERK/RT), or a non-medical community professional: Hepatology, Interventional [...] due to positioning during LHC on 10/14. [place] the worst in CVR, but has improved [...] Kumar, DMITRY - 10/16/2024 1:08 PM EDT [facility] Medical Nutrition Therapy Follow-Up Diet Order/Nutrition Support: Regular diet, Boost TID - Vanilla preference Pertinent Information: This is a 39 year old male history of ETOH cirrhosis d/b HE, ascites with SBP who is admitted for AMS. Precipitant of his HE likely SBP. Diagnostic paracentesis at OSH reportedly showed 61 nucleated cells, <2000 RBCs 10% Polynuclear, 90% [place] nuc. There were initial reports of gram [...] Based on CBW of 119.5 kg Kcals/day: 8183-4503 (18-21 kcals/kg) Protein g/day: 119-143 (1-1.2 g/kg) [...] Kumar RD, LD Clinical Dietitian Contact via [employer] * Jerad Hughes MD - 10/16/2024 11:03 AM EDT [facility] PROGRESS NOTE Name: Julien Gilbert CSN: [id number] Consulted by: Chelsy Lerner MD Reason for [...] nucleated cells, <2000 RBCs 10% Polynuclear, 90% [place] nuc. There were initial reports of gram [...] chemical dependency treatment as outpatient. - [facility] with no obstructive coronary disease - Psych eval for PTSD With recommendation of sertraline - Given his renal dysfunction, will plan to list for [facility] when he qualifies on 10/22/2024. - Will follow Bobby Sidhu MD Transplant Mixer Operator Helper Hot Metal Please see the body of the resident, [...] <30 until October 22. Waiting for [facility] today. ASSESSMENT NADIYA on CKD, [...] on 10/08/2024 Iron%- Iron replete PLAN -[facility] yesterday- patient remains at risk of contrast related injury on top of exisiting NADIYA for 24-48 hrs after contrast load. -He is volume overloaded -patient needs to follow up closely with nephrology after discharge Thank you for allowing us to participate in this patient's care. Discussed with Consult Staff. Jeremiah Gamino PGY4 Nephrology. Pager no. [phone] Chief Complaint No chief complaint on file. [...] at 10/08/2024 1:12 PM EDT US Duplex Cxp-Krd-Pqjcdpu Comp Final Result IMPRESSION: ABDOMEN 1. Cirrhotic [...] Findings similar to prior. Report Verified by: Alebrto Rodriguez MD at 10/07/2024 4:26 PM EDT [...] tolerate Stress ECHO on 10/09 - [facility] today -Per GI recs, started [...] no head imaging has been performed at [facility]. -CT Head w/o contrast -Imaging showed [...] Order Questions: Select Supplement: Boost-1 kcal/ml supplement ([facility] only) Code Status: Full Code Signed: WILLIAM BLOUNT MD 10/15/2024, 10:49 AM Cosigned by Chelsy Lerner MD at 10/15/2024 2:47 PM EDT Associated attestation - Chelsy Lerner MD - 10/15/2024 2:47 PM EDT [facility] Medicine Attending Supervision Note Julien Gilbert was seen today on rounds with the resident physician. I personally interviewed and examined the patient. I reviewed the documentation by the resident and agree as documented unless otherwise stated below. Reason for today's visit: Acute kidney injury superimposed on CKD ([facility]) Supplemental History / ROS R sided [...] another specialty or practice, other licensed professional (PT/OT/CLINICAL LAB CLERK/RT), or a non-medical community professional: Hepatology, Interventional [...] due to positioning during LHC on 10/14. [place] the worst in CVR, but has improved [...] - 10/15/2024 10:15 AM EDT [facility] PROGRESS NOTE Name: Julien Gilbert CSN: [id number] Consulted by: Chelsy Lerner MD Reason for [...] nucleated cells, <2000 RBCs 10% Polynuclear, 90% [place] nuc. There were initial reports of gram [...] chemical dependency treatment as outpatient. - [facility] yesterday with no obstructive coronary disease - Psych eval for PTSD and medical management - Given his renal dysfunction, will plan to list for [facility] when he qualifies on 10/22/2024. - Will follow Bobby Sidhu MD Transplant Mixer Operator Helper [employer] Please see the body of the resident, [...] Quan MD - 10/14/2024 2:34 PM EDT [facility] Department of Cardiovascular Health and Diseases [...] <30 until October 22. Waiting for [facility] today. ASSESSMENT NADIYA on CKD, last discharge creatinine 2.4 Baseline Creatinine 1.2-1.3, HRS- NADIYA as no response to holding lasix and albumin UA bland Urine lytes <10/< 15/ 50 Holding lasix give [facility] today Renal Function: Recent Labs [...] Staff. Jeremiah Gamino PGY4 Nephrology. Pager no. [phone] Chief Complaint No chief complaint on file. [...] at 10/08/2024 1:12 PM EDT US Duplex Rfm-Mnr-Ngwfukf Comp Final Result IMPRESSION: ABDOMEN 1. Cirrhotic [...] tolerate Stress ECHO on 10/09 - [facility] today -Per GI recs, started [...] no head imaging has been performed at [facility]. -CT Head w/o contrast -Imaging showed [...] required dialysis. Patient is going for [facility] today and will receive contrast, [...] Order Questions: Select Supplement: Boost-1 kcal/ml supplement ([facility] only) Code Status: Full Code Signed: [...] another specialty or practice, other licensed professional (PT/OT/CLINICAL LAB CLERK/RT), or a non-medical community professional: Hepatology, Interventional [...] - 10/14/2024 7:42 AM EDT [facility] PROGRESS NOTE Name: Julien Gilbert CSN: [id number] Consulted by: Chelsy Lenrer MD Reason for Consult: Decompensated Cirrhosis History [...] nucleated cells, <2000 RBCs 10% Polynuclear, 90% [place] nuc. There were initial reports of gram [...] ongoing. Transplant work up ongoing - [facility] today - Transplant nephrology following [...] - Will follow Bobby Sidhu MD Transplant Mixer Operator Helper Hot Metal Please see the body of the resident, [...] Staff. Jeremiah Gamino PGY4 Nephrology. Pager no. [phone] Chief Complaint No chief complaint on file. [...] - 10/13/2024 12:33 PM EDT [facility] PROGRESS NOTE Name: Julien Gilbert CSN: [id number] Consulted by: Fouzia Rene MD Reason for [...] nucleated cells, <2000 RBCs 10% Polynuclear, 90% [place] nuc. There were initial reports of gram [...] ongoing. Transplant work up ongoing - [facility] today - Transplant nephrology following [...] - Will follow Bobby Sidhu MD Transplant Mixer Operator Helper [employer] Please see the body of the resident, [...] no psychomotor abnormalities Cognition: short term and care home memory intact Attitude: cooperative Affect: full range [...] Homagdalena, RD - 10/13/2024 10:49 AM EDT [facility] Medical Nutrition Therapy Reason(s) for Completion: [...] Order Questions: Select Supplement: Boost-1 kcal/ml supplement ([facility] only) Pertinent Information: Julien Gilbert is a 39 y.o. Male admitted for Acute kidney injury superimposedon CKD ([facility]) Pt noted to have waxing and [...] kg) Body mass index is 32.07 kg/m??. [place] Body Weight: 202 lbs (91.8 kg) +/- 10% Weight History: Wt Readings from Last 10 Encounters: 10/10/24 (!) 263 lb 8 oz (119.5 kg) 09/05/24 (!) 262 lb 9.6 oz (119.1 kg) 09/02/24 (!) 258 lb (117 kg) 08/17/24 (!) 242 lb 11.2 oz (110.1 kg) 07/28/24 (!) 245 lb (111.1 kg) Estimated Nutrition Needs: Based on CBW of 119.5 kg Kcals/day: 0949-1069 (18-21 kcals/kg) Protein g/day: 119-143 (1-1-2 g/kg) [...] Dietitian - Solid Organ Transplant Contact via [employer] * Eileen Schroeder MD, PhD - 10/13/2024 8:19 AM EDT Department of Internal Medicine Daily Progress Note Chief Complaint / Reason for Follow-Up Julien Gilbert is a 39 y.o. male on hospital day 8. The principal reason for today's follow up visit is Acute kidney injury superimposed on CKD ([facility]). NAEON Pt felt well this AM. [...] at 10/08/2024 1:12 PM EDT US Duplex Kwh-Qei-Yzouapx Comp Final Result IMPRESSION: ABDOMEN 1. Cirrhotic [...] no head imaging has been performed at [facility]. -CT Head w/o contrast -Imaging showed [...] Order Questions: Select Supplement: Boost-1 kcal/ml supplement ([facility] only) Code Status: Full Code Signed: [...] I reviewed the documentation by the medical cafeteria team leader and agree as documented. Any [...] non-diagnostic due to hypotension. Plan for [facility] today, but now moved to [...] medically ready. Consider d/c home after [facility] tomorrow. FOUZIA RENE MD Attending Physician Department of Internal Medicine 10/13/2024 Medical Decision Making: // LEVEL 2 MOD One chronic illness with exacerbation, progression, or side effects of treatment Discussed with physician/SAWYER from another specialty or practice, other licensed professional (PT/OT/CLINICAL LAB CLERK/RT), or a non-medical community professional: Nephrology, Hepatology [...] at 10/08/2024 1:12 PM EDT US Duplex Sqy-Myl-Pajppmt Comp Final Result IMPRESSION: ABDOMEN 1. Cirrhotic [...] no head imaging has been performed at [facility]. -CT Head w/o contrast -Imaging showed [...] Order Questions: Select Supplement: Boost-1 kcal/ml supplement ([facility] only) Code Status: Full Code Signed: [...] I reviewed the documentation by the medical cafeteria team leader and agree as documented. Any additions or clarifications are listed below. Daily plan was discussed with patient at bedside and questions addressed. Patient ID: Julien Gilbert is a 39 y.o. male currently admitted for Acute kidney injury superimposed on CKD ([facility]) Supplemental History/ ROS: No acute events [...] for Acute kidney injury superimposed on CKD ([facility]) Active Problems: NADIYA (acute kidney injury) on CKD ([facility]): Hepatorenal syndrome. Appreciate nephrology consult. S/p albumin X3. baseline creatinine presumed to be around 2.5. Creatinine improved from its peak and may be now fluctuating around a new baseline. We will continue to monitor. Spontaneous Bacterial Peritonitis ([facility]): He remains afebrile and vital signs have been stable. Received 4 days of vancomycin, Ceftriaxone x 5d. - Restart Cipro prophylaxis Anemia: Multiple contributors. S/p 1 unit PRBC. Hemoglobin responded appropriately and remained stable. Will continue to monitor. Metabolic encephalopathy: Resolved. Likely related to combination of hepatic, metabolic, and possibly infectious insults. - Continue home lactulose and rifaximin Decompensated cirrhosis ([facility]): Appreciate hepatology consult. He has started his [...] another specialty or practice, other licensed professional (PT/OT/CLINICAL LAB CLERK/RT), or a non-medical community professional: Nephrology, Hepatology [...] cardiac workup pre txp. pLan for [facility] Sunday Liver transplant workup per [...] concern for hepatorenal syndrome.` Patient came from [facility], paracentesis was performed yesterday [...] 706.9 (H) 10/08/2024 No results found for: [id number] , FOLATE Lab Results Component Value Date [...] CRUR No results found for: MICROALBUR , [id number] In addition to the above an extensive [...] 4.6 10/12/2024 Lab Results Component Value Date CKES35Z 7.1 (L) 10/08/2024 PLAN Monitor renal panel [...] AM Colten Huertas MD, KISHOR LIN, FNKF laundry helper Div. of Nephrology [facility] E-mail: [email or web address] This note was completely edited, written [...] MD Interval hx No issues. Pending [facility]. Assessment: Renal Function: Cr: 2.77 [...] cardiac workup pre txp. pLan for [facility] Sunday 4. Liver transplant workup [...] concern for hepatorenal syndrome.` Patient came from [facility], paracentesis was performed yesterday [...] 706.9 (H) 10/08/2024 No results found for: [id number] , FOLATE Lab Results Component Value Date [...] CRUR No results found for: MICROALBUR , [id number] In addition to the above an extensive [...] 3.5 10/11/2024 Lab Results Component Value Date EOLL86H 7.1 (L) 10/08/2024 PLAN Monitor renal panel [...] AM Colten Huertas MD, KISHOR LIN FNKF laundry helper Div. of Nephrology [facility] E-mail: [email or web address] This note was completely edited, written [...] is Acute kidney injury superimposed on CKD ([facility]). NAEON Pt felt much better today. [...] at 10/08/2024 1:12 PM EDT US Duplex Vfm-Evp-Qgxtkyy Comp Final Result IMPRESSION: ABDOMEN 1. Cirrhotic [...] from outside facility. Will engage with them daily([phone]. Ask to speak to a tech) about [...] no head imaging has been performed at [facility]. -CT Head w/o contrast -Imaging showed [...] Order Questions: Select Supplement: Boost-1 kcal/ml supplement ([facility] only) Code Status: Full Code Signed: [...] I reviewed the documentation by the medical cafeteria team leader and agree as documented. 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 Not a candidate for terlipressin per [...] Ignacio Queen MD Renal Fellow Pager # [phone] Chief Complaint No chief complaint on file. [...] concern for hepatorenal syndrome.` Patient came from [facility], paracentesis was performed yesterday [...] PHOS -- < > 3.5 3.4 3.3 RZEX75Y 7.1* -- -- -- -- < > = values in this interval not displayed. Lab Results Component Value Date IRON 81 10/08/2024 TIBC SEE COMMENT 10/08/2024 FERRITIN 706.9 (H) 10/08/2024 No results found for: [id number] , FOLATE Lab Results Component Value Date [...] CRUR No results found for: MICROALBUR , [id number] In addition to the above an extensive [...] 3.3 10/10/2024 Lab Results Component Value Date PYFP62Q 7.1 (L) 10/08/2024 PLAN Continue IV albumin [...] AM Colten Huertas MD, DELIA, KISHOR, FNKF laundry helper Div. of Nephrology [facility] E-mail: [email or web address] This note was completely edited, written [...] to follow pt while pt is at [facility]. * Jodi Ortiz PharmD - 10/10/2024 10:27 AM EDT Clinical Pharmacy Service: Vancomycin Consult Progress Note Patient has been transitioned off of vancomycin therapy per team notes and orders. Pharmacy will sign-off at this time, please do not hesitate to consult again as needs arise. Thank you for involving pharmacy in the care of this patient. Jodi Ortiz PharmD Clinical Wet Finisher Wool, Internal Medicine Preferred contact: [employer] Clinical Tromthq-Ga-Hfqc Pager: [phone] October 10, 2024 10:27 AM Laboratory Data [...] 10/07/2024 10:50 PM Giardia Cryptosporidium Antigens Final [id number] 10/07/2024 10:50 PM Ova and Parasite Comprehensive w/ Giardia/Crypto Final [id number] Feces 10/06/2024 1:04 AM #2 Blood culture-Peripheral site 2 Preliminary [id number] Peripheral 10/06/2024 1:04 AM #1 Blood culture-Peripheral site 1 Preliminary [id number] Peripheral Pharmacokinetics Lab Results (Last 7 days) Today 522 Yesterday 10/08 0536 Vanc Rdm 16.4 11.0 16.0 * Gerri Peterson MD - 10/10/2024 10:09 AM EDT [facility] PROGRESS NOTE Name: Julien Gilbert CSN: [id number] Consulted by: Fouzia Rene MD Reason for [...] nucleated cells, <2000 RBCs 10% Polynuclear, 90% [place] nuc. Per OSH reports, ascitic fluid cultures [...] achieving target HR. -cardiology consult for [facility] on Sunday - Transplant nephrology [...] from the original note were not included. [facility] Clinical Pharmacy Service: Vancomycin Monitoring [...] in sodium chloride 0.9 % 250 mL Oplr3Akv (Completed) 1,500 mg Once 10/09/2024 10/09/2024 Admin Instructions: Contact pharmacy if there is a question/concern of whether vancomycin should begiven based on serum drug levels. Use Bfcp5Bum Adapter - Mix Thoroughly Before Administration Route: Intravenous vancomycin (VANCOCIN) 1,500 mg in sodium chloride 0.9 % 250 mL Jmkb6Jor 1,500 mg Once 10/10/2024 10/11/2024 Admin Instructions: Contact pharmacy if there is a question/concern of whether vancomycin should begiven based on serum drug levels. Use Uedx6Ezo Adapter - Mix Thoroughly Before Administration Route: [...] in sodium chloride 0.9 % 250 mL Bgqv3Tex 1,500 mg 166.7 mL/hr 10/08/24 1259 New Bag vancomycin (VANCOCIN) 1,000 mg in sodium chloride 0.9 % 250 mL Bgvs2Hug 1,000 mg 250 mL/hr --Objective Data-- Vitals: [...] 53 53 54 Creatinine 2.85 2.89 3.04 [place] body weight: 86.8 kg (191 lb 5.7 oz) Adjusted ideal body weight: 99.9 kg (220 lb 3.5 oz) Estimated CrCl: ~35-45 mL/min --Cultures-- Microbiology Results Date and Time Order Name Sensitivity Status Organisms Specimen ID Source 10/07/2024 10:50 PM Giardia Cryptosporidium Antigens Final [id number] 10/07/2024 10:50 PM Ova and Parasite Comprehensive w/ Giardia/Crypto Final [id number] Feces 10/06/2024 1:04 AM #2 Blood culture-Peripheral site 2 Preliminary [id number] Peripheral 10/06/2024 1:04 AM #1 Blood culture-Peripheral site 1 Preliminary [id number] Peripheral --Vancomycin Concentrations-- Lab Results (Last 7 [...] for the consult. Jodi Ortiz PharmD Clinical Wet Finisher Wool, Internal Medicine Preferred contact: [employer] Clinical Rnpfwqh-Hh-Zmci Pager: [phone] October 10, 2024 9:13 AM * Eileen Schroeder MD, PhD - 10/10/2024 8:17 AM EDT Department of Internal Medicine Daily Progress Note Chief Complaint / Reason for Follow-Up Julien Gilbert is a 39 y.o. male on hospital day 5. The principal reason for today's follow up visit is Acute kidney injury superimposed on CKD ([facility]). DREW Pt was very conversational today. [...] at 10/08/2024 1:12 PM EDT US Duplex Ngu-Hxi-Xwxuarc Comp Final Result IMPRESSION: ABDOMEN 1. Cirrhotic [...] from outside facility. Will engage with them daily([phone]. Ask to speak to a tech) about [...] no head imaging has been performed at [facility]. -CT Head w/o contrast -Imaging showed [...] Order Questions: Select Supplement: Boost-1 kcal/ml supplement ([facility] only) Code Status: Full Code Signed: [...] I reviewed the documentation by the medical cafeteria team leader and agree as documented. Any additions or clarifications are listed below. Daily plan was discussed with patient at bedside and questions addressed. Patient ID: Julien Gilbert is a 39 y.o. male currently admitted for Acute kidney injury superimposed on CKD ([facility] [facility] Supplemental History/ ROS: No acute events [...] for Acute kidney injury superimposed on CKD ([facility]) Active Problems: Spontaneous Bacterial Peritonitis ([facility]): Cultures from OSH were reported as growing [...] Continue home lactulose and rifaximin Decompensated [facility] Appreciate hepatology consult. He has started his [...] IR. NADIYA (acute kidney injury) on CKD ([facility]): Appreciate nephrology consult. 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 Considering para today, cardiac workup pre txp Liver transplant workup per GI/ Primary team, considering for SLK, seen by renal transplant team Thank you for allowing us to participate in this patient's care. Discussed with Consult Staff. Ignacio Queen MD Renal Fellow Pager # [phone] Chief Complaint No chief complaint on file. [...] concern for hepatorenal syndrome.` Patient came from [facility], paracentesis was performed yesterday [...] 9.0 9.3 PHOS -- 3.5 3.5 3.4 OGAK02T 7.1* -- -- -- Lab Results Component Value Date IRON 81 10/08/2024 TIBC SEE COMMENT 10/08/2024 FERRITIN 706.9 (H) 10/08/2024 No results found for: [id number] , FOLATE Lab Results Component Value Date [...] CRUR No results found for: MICROALBUR , [id number] In addition to the above an extensive [...] 3.4 10/09/2024 Lab Results Component Value Date KHLK64P 7.1 (L) 10/08/2024 PLAN Continue IV albumin [...] PM Colten Huertas MD, KISHOR LIN, FNKF laundry helper Div. of Nephrology [facility] E-mail: [email or web address] This note was completely edited, written [...] - 10/09/2024 1:07 PM EDT [facility] HEPATOLOGY PROGRESS NOTE Name: Julien Gilbert CSN: [id number] Consulted by: Fouzia Rene MD Reason for [...] nucleated cells, <2000 RBCs 10% Polynuclear, 90% [place] nuc. Fluid cultures reportedly grew gram + [...] from the original note were not included. [facility] Clinical Pharmacy Service: Vancomycin Monitoring [...] in sodium chloride 0.9 % 250 mL Dkjf6Gci (Completed) 1,000 mg Once 10/08/2024 10/08/2024 Admin Instructions: Contact pharmacy if there is a question/concern of whether vancomycin should begiven based on serum drug levels. Use Kqml0Whh Adapter - Mix Thoroughly Before Administration Route: Intravenous vancomycin (VANCOCIN) 1,500 mg in sodium chloride 0.9 % 250 mL Prdz5Hdq 1,500 mg Once 10/09/2024 10/10/2024 Admin Instructions: Contact pharmacy if there is a question/concern of whether vancomycin should begiven based on serum drug levels. Use Hncm5Xbu Adapter - Mix Thoroughly Before Administration Route: [...] in sodium chloride 0.9 % 250 mL Plbr8Psw 1,000 mg 250 mL/hr 10/06/24 1413 New [...] 10/07/2024 10:50 PM Giardia Cryptosporidium Antigens Final [id number] 10/07/2024 10:50 PM Ova and Parasite Comprehensive w/ Giardia/Crypto Final [id number] Feces 10/06/2024 1:04 AM #2 Blood culture-Peripheral site 2 Preliminary [id number] Peripheral 10/06/2024 1:04 AM #1 Blood culture-Peripheral site 1 Preliminary [id number] Peripheral --Vancomycin Concentrations-- Lab Results (Last 7 [...] for the consult. Jodi Ortiz PharmD Clinical Wet Finisher Wool, Internal Medicine Preferred contact: [facility] Alsqnze-Eg-Shxk Pager: [phone] October 09, 2024 8:29 AM * Eileen Schroeder MD, PhD - 10/09/2024 8:00 AM EDT Department of Internal Medicine Daily Progress Note Chief Complaint / Reason for Follow-Up Julien Gilbert is a 39 y.o. male on hospital day 4. The principal reason for today's follow up visit is Acute kidney injury superimposed on CKD ([facility]). DREW and father at bedside Pt [...] at 10/08/2024 1:12 PM EDT US Duplex Xxt-Msg-Gylbocu Comp Final Result IMPRESSION: ABDOMEN 1. Cirrhotic [...] from outside facility. Will engage with them daily([phone]. Ask to speak to a tech) about [...] no head imaging has been performed at [facility]. -CT Head w/o contrast -Imaging showed [...] Order Questions: Select Supplement: Boost-1 kcal/ml supplement ([facility] only) Code Status: Full Code Signed: [...] I reviewed the documentation by the medical cafeteria team leader and agree as documented. Any additions or clarifications are listed below. Daily plan was discussed with patient at bedside and questions addressed. Patient ID: Julien Gilbert is a 39 y.o. male currently admitted for Acute kidney injury superimposed on CKD ([facility]) Supplemental History/ ROS: No acute events [...] for Acute kidney injury superimposed on CKD ([facility]) Active Problems: Anemia: S/p 1 unit PRBC from yesterday. Hemoglobin responded appropriately and remained stable. Will continue to monitor. Metabolic encephalopathy: Mostly resolved. Likely related to combination of hepatic, metabolic, andpossibly infectious insults. - Continue home lactulose and rifaximin Spontaneous Bacterial Peritonitis ([facility]): Cultures from OSH are growing gram- positive organisms.We continue to await speciation. He remains afebrile and vital signs have been stable. - Continue vancomycin and ceftriaxone for now. - Will follow-up on speciation and sensitivities. Decompensated cirrhosis ([facility]): Appreciate hepatology consult. He has started his transplant evaluation and will continue while inpatient. - MELD labs daily - Continue home regimen with ursodiol, rifaximin and lactulose - Start midodrine 3 times daily - EGD postponed until tomorrow -Planning for stress test today - Due for therapeutic paracentesis in the next day or so. NADIYA (acute kidney injury) on CKD ([facility]): Appreciate nephrology consult. Likely due to hepatorenal syndrome. Now s/p albumin X3. baseline creatinine presumed to be around 2.5. Creatinine slightly lower today. We will continue to monitor. Electrolyte derangements: Replete as needed Neck Pain: He has a history of cervical surgery. Continue oxycodone as needed for pain. Continue tomonitor. Principal Problem: Acute kidney injury superimposed on CKD ([facility]) Active Problems: Decompensated cirrhosis ([facility]) Metabolic encephalopathy Thrombocytopenia ([facility]) Renal mass, left Metabolic acidosis with normal anion gap and bicarbonate losses GERD (gastroesophageal reflux disease) Anemia SBP (spontaneous bacterial peritonitis) ([facility]) Neck pain with history of cervical spinal [...] another specialty or practice, other licensed professional (PT/OT/CLINICAL LAB CLERK/RT), or a non-medical community professional: Nephrology, Hepatology Labs reviewed (1 pt each): CBC, CMP, INR & other daily labs Review of notes from a different specialty or different practice: Nephrology, Anesthesiology hepatology, * Gerri Peterson MD - 10/08/2024 1:40 PM EDT [facility] HEPATOLOGY PROGRESS NOTE Name: Julien Gilbert CSN: [id number] Consulted by: Fouzia Rene MD Reason for [...] nucleated cells, <2000 RBCs 10% Polynuclear, 90% [place] nuc. Fluid cultures reportedly grew gram + [...] a hospital based, [facility] based, or home setting. -At the time [...] I have discussed this plan with the purchasing coordinator and the liver transplant team. Cosigned [...] from the original note were not included. [facility] Clinical Pharmacy Service: Vancomycin Monitoring [...] in sodium chloride 0.9 % 250 mL Wqym0Hal 1,000 mg Once 10/08/2024 10/09/2024 Admin Instructions: Contact pharmacy if there is a question/concern of whether vancomycin should begiven based on serum drug levels. Use Iria8Zeu Adapter - Mix Thoroughly Before Administration Route: [...] 10/07/2024 10:50 PM Giardia Cryptosporidium Antigens Final [id number] 10/07/2024 10:50 PM Ova and Parasite Comprehensive w/ Giardia/Crypto In process [id number] Feces 10/06/2024 1:04 AM #2 Blood culture-Peripheral site 2 Preliminary [id number] Peripheral 10/06/2024 1:04 AM #1 Blood culture-Peripheral site 1 Preliminary [id number] Peripheral --Vancomycin Concentrations-- Lab Results (Last 7 [...] for the consult. Jodi Ortiz, PharmD Clinical Wet Finisher Wool, Internal Medicine Preferred contact: [facility] Mtrvshb-Hp-Izca Pager: [phone] October 08, 2024 9:13 AM * Eileen [...] FREET4 0.74 09/03/2024 Diagnostic Studies US Duplex Cny-Fpt-Gnrmxwv Comp Final Result IMPRESSION: ABDOMEN 1. Cirrhotic [...] no head imaging has been performed at [facility]. -CT Head w/o contrast -Imaging showed [...] Order Questions: Select Supplement: Boost-1 kcal/ml supplement ([facility] only) Code Status: Full Code Signed: [...] I reviewed the documentation by the medical cafeteria team leader and agree as documented. Any [...] tomorrow NADIYA (acute kidney injury) on CKD ([facility]): Appreciate nephrology consult. Likely has hepatorenal [...] Problem: Metabolic encephalopathy Active Problems: Decompensated cirrhosis ([facility]) Acute kidney injury superimposed on CKD ([facility]) Thrombocytopenia ([facility]) Renal mass, left Metabolic acidosis with normal anion gap and bicarbonate losses GERD (gastroesophageal reflux disease) Anemia SBP (spontaneous bacterial peritonitis) ([facility]) Neck pain with history of cervical spinal [...] another specialty or practice, other licensed professional (PT/OT/CLINICAL LAB CLERK/RT), or a non-medical community professional: Nephrology, Hepatology [...] Strictly monitor urine output No 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 Discussed with Consult Staff. Ignacio Queen MD Renal Fellow Pager # [phone] Chief Complaint No chief complaint on file. [...] concern for hepatorenal syndrome.` Patient came from [facility], paracentesis was performed yesterday [...] TIBC , FERRITIN No results found for: [id number] , FOLATE Lab Results Component Value Date [...] <15 No results found for: MICROALBUR , [id number] In addition to the above an extensive [...] 4.0 10/08/2024 Lab Results Component Value Date EEGO87X 7.1 (L) 10/08/2024 PLAN Continue IV albumin [...] AM Colten Huertas MD, KISHOR LIN, FNKF laundry helper Div. of Nephrology [facility] E-mail: [email or web address] This note was completely edited, written [...] from the original note were not included. [facility] Clinical Pharmacy Service: Vancomycin Monitoring [...] AM #2 Blood culture-Peripheral site 2 Preliminary [id number] Peripheral 10/06/2024 1:04 AM #1 Blood culture-Peripheral site 1 Preliminary [id number] Peripheral --Vancomycin Concentrations-- Lab Results (Last 7 [...] for the consult. Jodi Ortiz PharmD Clinical Wet Finisher Wool, Internal Medicine Preferred contact: [facility] Wvzydrw-Ct-Udbd Pager: [phone] October 07, 2024 5:01 PM * Yamile [...] - 10/07/2024 11:33 AM EDT [facility] HEPATOLOGY PROGRESS NOTE Name: Julien Gilbert CSN: [id number] Consulted by: Fouzia Rene MD Reason for [...] hyperlipidemia 07/26/2024 Renal cell carcinoma (CMS-HCC) Thrombocytopenia ([facility]) Thyroid disease No past surgical history [...] nucleated cells, <2000 RBCs 10% Polynuclear, 90% [place] nuc. Fluid cultures reportedly grewgram + rods. [...] liver selection meeting and clearance by social worker health services. 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 Discussed with Consult Staff. Ignacio Queen MD Renal Fellow Pager # [phone] Chief Complaint No chief complaint on file. [...] concern for hepatorenal syndrome.` Patient came from [facility], paracentesis was performed yesterday [...] TIBC , FERRITIN No results found for: [id number] , FOLATE Lab Results Component Value Date [...] <15 No results found for: MICROALBUR , [id number] In addition to the above an extensive [...] PHOS 4.2 10/07/2024 No results found for: KPOL45J PLAN Continue IV albumin Monitor renal panel [...] AM Colten Huertas MD, KISHOR LIN FNKF laundry helper Div. of Nephrology [facility] E-mail: [email or web address] * Carmen Dolores, OT - 10/07/2024 11:09 AM EDT Occupational Therapy Initial Assessment and Discharge Name: Julien Gilbret : 1985 Attending Physician: Fouzia Rene MD Admission Diagnosis: AMS Date: 10/07/2024 Room: 42/[facility] Reviewed Pertinent hospital course: Yes [...] Chief Complaint / Reason for Follow-Up Julien Gilebrt is a 39 y.o. male on hospital [...] at 10/06/2024 2:33 AM EDT US Duplex Gas-Rzy-Oontrcx Comp (Results Pending) US Abdomen Complete (Results [...] no head imaging has been performed at [facility]. -CT Head w/o contrast -Imaging showed [...] Order Questions: Select Supplement: Boost-1 kcal/ml supplement ([facility] only) Code Status: Full Code Signed: [...] I reviewed the documentation by the medical cafeteria team leader and agree as documented. Any [...] home lactulose and rifaximin Spontaneous Bacterial Peritonitis ([facility]): Cultures from OSH are growing gram- positive organisms.He is on vancomycin and ceftriaxone for now. Will follow-up on speciation and sensitivities. For now, he is afebrile and his white counts have trended down and mental status is improving. Decompensated cirrhosis ([facility]): Appreciate hepatology consult. He has started his transplant evaluation as an outpatient. We will follow-up with hepatology to discuss any inpatient testing that may need to be needed. - MELD labs daily - Continue home regimen with ursodiol, rifaximin and lactulose NADIYA (acute kidney injury) ([facility]): Appreciate nephrology consult. Likely has hepatorenal [...] kidney disease) stage 4, GFR 15-29 ml/min ([facility]) Metabolic acidosis with normal anion gap [...] another specialty or practice, other licensed professional (PT/OT/CLINICAL LAB CLERK/RT), or a non-medical community professional: Nephrology, Hepatology Labs reviewed (1 pt each): CMP, CBC Test results reviewed (1 pt each): CXR, Head CT Review of notes from a different specialty or different practice: Nephrology, hepatology Use of parenteral controlled substances * Kiet Gardiner, PharmD - 10/06/2024 1:07 PM EDT Images from the original note were not included. [facility] Clinical Pharmacy Service: Vancomycin Monitoring [...] AM #2 Blood culture-Peripheral site 2 Preliminary [id number] Peripheral 10/06/2024 1:04 AM #1 Blood culture-Peripheral site 1 Preliminary [id number] Peripheral --Vancomycin Concentrations-- Lab Results (Last 7 [...] US Retroperitoneal complete (Results Pending) US Duplex Paz-Est-Fgjltki Comp (Results Pending) CT Head WO contrast [...] PM EDT Hospital Medicine Attending Supervision Note [facility] Julien Gilbert was seen 10/06/24 on [...] MD - 10/05/2024 2:42 PM EDT [facility] Department of Medicine TRANSFER CALL NOTE Location [facility] ED History of Present Illness [...] nearest ED, with plan to transfer to [facility] if needing admission. In the ED, [...] Studies: Na 129 K 4.2 Cl 101 Sdvvrm93 BUN 62 (up from baseline) Cr 3.6 [...] in this encounter H&P Notes * Mani uQan MD - 10/14/2024 1:10 PM EDT THE [...] Neuro: AOx3 AUC For Cath Indication(s) for Sulfonation Equipment Operator Visit: Visit Indicators: Suspected CAD 2. Chest Pain Symptom Assessment: Asymptomatic 3. Heart Failure: Yes Class II 4. [facility]SA Clinical Frailty Scale: Mildly Frail Sedation Plan: Moderate Sedation with Local Anesthesia Antibiotic prophylaxis is not indicated. Mani Quan Interventional It Systems Analyst Consultant Pager: [phone] [1] Patient Active Problem List Diagnosis Decompensated cirrhosis ([facility]) Acute kidney injury superimposed on CKD ([facility]) Alcohol use disorder Metabolic encephalopathy Hypertension Other hyperlipidemia Thrombocytopenia ([facility]) Renal mass, left Abdominal pain Hypokalemia CKD (chronic kidney disease) stage 4, GFR 15-29 ml/min ([facility]) Metabolic acidosis with normal anion gap and bicarbonate losses GERD (gastroesophageal reflux disease) Hypothyroidism Itching Anemia BRBPR (bright red blood per rectum) SBP (spontaneous bacterial peritonitis) ([facility]) C Diff Diarrhea C. [...] Patient Active Problem List Diagnosis Decompensated cirrhosis ([facility]) Acute kidney injury superimposed on CKD ([facility]) Alcohol use disorder Metabolic encephalopathy Hypertension Other hyperlipidemia Thrombocytopenia ([facility]) Renal mass, left Abdominal pain Hypokalemia CKD (chronic kidney disease) stage 4, GFR 15-29 ml/min ([facility]) Metabolic acidosis with normal anion gap and bicarbonate losses GERD (gastroesophageal reflux disease) Hypothyroidism Itching Anemia BRBPR (bright red blood per rectum) SBP (spontaneous bacterial peritonitis) ([facility]) C Diff Diarrhea C. difficile diarrhea Neck [...] Strain: Low Risk (07/09/2024) Received from [facility] Overall Financial Resource Strain (CARDIA) Difficulty of [...] No Physical Activity: Unknown (07/14/2024) Received from [facility] Exercise Vital Sign Days of Exercise per Week: Patient unable to answer Minutes of Exercise per Session: Not on file Stress: Patient Unable To Answer (07/14/2024) Received from [facility] [place] [facility] [employer] [facility] - Occupational Stress Questionnaire Feeling of Stress : Patient unable to answer Social Connections: Patient Unable To Answer (07/14/2024) Received from [facility] Social Connection and Isolation Panel [NHANES] Frequency of Communication with Friends and Family: Patient unable to answer Frequency of Social Gatherings with Friends and Family: Patient unable to answer Attends [employer] Services: Patient unable to answer Active Member [...] values in this interval not displayed. Imaging: @[id number]@ I have personally reviewed the imaging and have noted the following: Large recanalized umbilical vein Perihilar varices Replaced right hepatic artery Splenomegaly Spontaneous splenorenal shunt Large volume ascites, No portal vein thrombosis Assessment/Plan: A 39 y.o. male with ETOH decompensated by ascites, hepatic encephalopathy,bleeding esophageal Varices. Use and allocation of SCD, VP RESPIRATORY, DCD and LDLT allografts discussed in detail. [...] from surgery (5%). I also explained the care home risks of transplantation and immunosuppression including viral infection and cancer both solid organand lymphoma. Kemar Sahni MD, Fellow, Multiorgan Abdominal Transplant Surgery. [facility]. 10/09/2024 3:16 PM [1] Allergies Allergen [...] Ortiz MD - 10/06/2024 12:00 AM EDT [facility] Internal Medicine - History and Physical [...] overnight for imaging upload. [facility] performed a bedside paracentesis and sent studies for SBP analysis. [facility] to see if labs have resulted. Review of Systems 14 pt ROS conducted and negative aside from that mentioned in above HPI Past Medical and Social History Lives in [place], [place] at bedside Notes that the patient [...] OSH Repeat labs pending on admission to [facility] Assessment & Plan Julien Gilbert is [...] AM EDT Hospital Medicine Attending Supervision Note [facility] Julien Giblert was seen 10/06/24 on rounds with the [...] confusion and lethargy. HE was seen at [facility] ED were CT head unremarkable and RUQ with gallstones, abdominal ascites diagnostic para done and started on empiric CTX. Labs remarkable at OSH for K 4.2 Cl 101 Iibnex81 BUN 62 (up from baseline) Cr 3.6 [...] another specialty or practice, other licensed professional (PT/OT/CLINICAL LAB CLERK/RT), or a non-medical community professional: ed team [...] Medicine Department of Internal Medicine Pager ID: [phone] 6:04 AM, 10/06/2024 documented in this encounter [...] CNP Vascular & Interventional Radiology 10/10/2024,1:55 PM [facility]: [phone] * Lino Soto MD - 10/10/2024 12:06 PM EDT EGD Brief Op Note Julien Gilbert 10/05/2024 - 10/10/2024 Pre-op Diagnosis: Alcoholic cirrhosis of liver with ascites (CMS-HCC) [K70.31] Post-op Diagnosis: Portal gastropathy, Medium size, non-bleeding esophageal varices Procedure(s): EGD Surgeon(s): Lino Soto MD Anesthesia: MAC (Monitor Anesthesia Care) Staff: Fellow: Gerri Peterson MD Endoscopy Nurse: Kandice Castaneda RN Statement Clerks Supervisor: Diana Kemp Estimated Blood Loss: Minimal Specimens: Drains: There were no complications unless listed below. LINO SOTO MD Date: 10/10/2024 Time: 12:18 PM * Lino Soto MD - 10/10/2024 11:48 AM EDT [id number] Procedure Date: 10/10/2024 11:48 AM Patient Name: Julien Gilbert Date of : 1985 Admit Type: Inpatient Age: 39 Gender: Male Note Status: Finalized Attending MD: Lino Soto MD, [id number] Procedure: Upper GI endoscopy Indications: Gastroesopahgeal variceal [...] verified by the physician, the nurse, the bed laster and the application support technician in the pre-procedure area in the [...] to hypotension Procedure Code(s): --- Professional --- 48010, GC, Esophagogastroduodenoscopy, flexible, transoral; diagnostic, including collection of specimen(s) by brushing or washing, when performed (separate procedure) Diagnosis Code(s): --- Professional --- 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 All rights reserved. The codes documented in this report are preliminary and upon plastics design engineer review may be revised to meet current compliance requirements. Attending Participation: I was present and participated during the entire procedure, including non-albarado portions. Lino Soto MD Lino Soto MD 10/10/2024 12:34:37 PM This report has been signed electronically.MD Vrenon Appiah MD Gerri Peterson MD 10/10/2024 12:29:47 PM Total Procedure Duration Time 0 hours 7 minutes 12 seconds Scope In: 12:10:16 PM Scope Out: 12:17:[address] [place] [address], [id number] * Gill Le RN - 10/09/2024 4:00 [...] time. 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 Describes significant anxiety that occasionally limits his ability to drive, and stated he has to pick pulling machine tender occasionally to collect himself, thought denied specific [...] need for sleep. Has not been on [facility] since stopping [...] to his health decline. He was raised [place] and denied current engagement in any community [...] or other abnormalities Cognition/Memory: short term and care home memory intact. Attention and concentration: is [...] from the original note were not included. [facility] General Cardiology Consult Note Referring Physician: [...] at baseline or with provocation, shows no kxfvw-ml-qpbk atrial level shunt. - Pulmonary arteries: Systolic [...] 10/13/24, please keep NPO on 10/12/24 at [place] Risks and benefits of new therapies added and new invasive and non-invasive procedures/diagnostic testing planned discussed with and understood by the patient/family who agree with the above plan. Plan discussed with the attending physician Dr. Blanco. Recommendations are preliminary until this note is co- signed by the attending. Follow up appointments with Cardiology can be scheduled by calling [phone]. Thank you for the opportunity to participate in this patient's care. Please call orpage with any questions. Leonor Garcia MD It Systems Analyst Consultant I have personally seen, examined, reviewed all [...] 0659 10/11/24 0700 - 10/12/24 0659 Shift 4506-5252 8887-8605 24 Hour Total 7850-9719 2874-0262 2527-4520 24 Hour Total INTAKE P.O. 3442 889 2602 P.O. 9373 627 2952 Boost (mL) - [facility] only 240 240 I.V.(mL/kg) 450(3.8) Volume [...] Duloxetine Other (See Comments) Became Manic * aBkari Wahl SUSTAINABLE LANDSCAPE ARCHITECT - 10/10/2024 10:07 AM EDT Interventional Radiology [...] EZEKIEL Vascular & Interventional Radiology 10/10/2024,1:54 PM [facility]: [phone]([phone]) [1] Social History Tobacco Use Smoking Status [...] Attending: Daria Garcia Patient: Julien Gilbert CSN: [id number] Reason for Consult: CC: Abx management History [...] He was born and raised in [place] . No travel to [facility]. 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 [...] Strain: Low Risk (07/09/2024) Received from [facility] Overall Financial Resource Strain (CARDIA) Difficulty of [...] No Physical Activity: Unknown (07/14/2024) Received from [facility] Exercise Vital Sign Days of Exercise per Week: Patient unable to answer Minutes of Exercise per Session: Not on file Stress: Patient Unable To Answer (07/14/2024) Received from [facility] [place] [facility] - Occupational Stress Questionnaire Feeling of Stress : Patient unable to answer Social Connections: Patient Unable To Answer (07/14/2024) Received from [facility] Social Connection and Isolation Panel [NHANES] Frequency of Communication with Friends and Family: Patient unable to answer Frequency of Social Gatherings with Friends and Family: Patient unable to answer Attends Druze Services: Patient unable to answer Active Member [...] day. Qty: 60 tablet, Refills: 0 Comments: [facility] in [place] [address] sodium bicarbonate 650 MG tablet Take 2 [...] Aphasia [R47.01] 10/06/2024 SBP (spontaneous bacterial peritonitis) ([facility]) [K65.2] 09/08/2024 Metabolic acidosis with normal anion gap and bicarbonate losses [E87.20] 09/03/2024 CKD (chronic kidney disease) stage 4, GFR 15-29 ml/min ([facility]) [N18.4] 09/03/2024 GERD (gastroesophageal reflux disease) [K21.9] 09/03/2024 Renal mass, left [N28.89] 08/18/2024 Thrombocytopenia ([facility]) [D69.6] Decompensated cirrhosis ([facility]) [K72.90, K74.60] 07/25/2024 NADIYA (acute kidney injury) ([facility]) [N17.9] 07/25/2024 Resolved Hospital [...] Signed: Daria Garcia MD 10/08/2024, 9:46 AM [phone] [1] Allergies Allergen Reactions Adhesive Itching and [...] decompensated by esophageal varices, ascites, hepatic encephalopathy, NADYIA on CKD vs hepatorenal syndrome, coagulopathy with [...] Strain: Low Risk (07/09/2024) Received from [facility] Overall Financial Resource Strain (CARDIA) Difficulty of [...] No Physical Activity: Unknown (07/14/2024) Received from [facility] Exercise Vital Sign Days of Exercise per Week: Patient unable to answer Minutes of Exercise per Session: Not on file Stress: Patient Unable To Answer (07/14/2024) Received from [facility] [place] [facility] - Occupational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 [address] * (ABNORMAL) Hepatic Function Panel (10/12/2024 [...] BLOOD ORDERABLES Final Result Performing Organization Address City/[facility]/ZIP Co de Phone Number [facility] [address] * Magnesium (10/12/2024 5:44 AM EDT) Magnesium 1.9 1.5 - 2.5 mg/dL 10/12/2024 6:29 AM EDT [facility] Plasma 10/12/2024 5:44 AM EDT 10/12/2024 5:58 AM EDT Eileen Schroeder MD, PhD LAB BLOOD ORDERABLES Final Result [facility] [address] * (ABNORMAL) Renal Function Panel w/EGFR [...] 25 mg/dL 10/12/2024 6:29 AM EDT THE SURGICAL [...] 305 mOsm/kg 10/12/2024 6:29 AM EDT [facility] EGFR 27 10/12/2024 6:29 AM EDT [facility] [...] LAB BLOOD ORDERABLES Final Result [facility] [address] [place] [address], [facility] * (ABNORMAL) CBC (10/12/2024 [...] criteria approved by the laboratory medical records custodian. Eileen Schroeder MD, PhD LAB BLOOD ORDERABLES Final Result Performing Organization Address [facility] Co de Phone Number [facility] [address] * CARISA Rhythm Strip - Scan [...] AM EDT 10/11/2024 3:08 AM EDT Result [facility] Eileen Schroeder MD, PhD LAB BLOOD ORDERABLES Final Result Performing Organization Address [facility] Co de Phone Number [facility] [address] [facility]. [address] * (ABNORMAL) Hepatic Function Panel (10/11/2024 [...] ORDERABLES Final Result Performing Organization Address [facility] Co de Phone Number [facility] [address] * Magnesium (10/11/2024 3:02 AM EDT) Magnesium 2.0 1.5 - 2.5 mg/dL 10/11/2024 3:38 AM EDT [facility] Plasma 10/11/2024 3:02 AM EDT 10/11/2024 3:08 AM EDT Eileen Schroeder MD, PhD LAB BLOOD ORDERABLES Final Result Performing Organization Address [facility]/ZIP Co de Phone Number [facility] [address] * (ABNORMAL) Renal Function Panel w/EGFR [...] C, Talia M, Olivia [place], Emerita ND, aMdelyn [place], Felicia [place], et al. A Unifying Approach for GFR Estimation: Recommendations of the NKF-ASN Task Force on Reassessing the inclusion of Race in Diagnosing Kidney Disease. Am J Kidney Dis. 2020. Plasma 10/11/2024 3:02 AM EDT 10/11/2024 3:08 AM EDT us Eileen Schroeder MD, PhD LAB BLOOD ORDERABLES Final Result [facility] [address] [place] [address], [facility] * (ABNORMAL) CBC [...] criteria approved by the laboratory medical records custodian. us Eileen Schroeder MD, PhD LAB BLOOD ORDERABLES Final Result [facility] [address] [facility]. [address] * Vancomycin, random (10/11/2024 3:02 AM EDT) Vancomycin Random 13.4 ug/mL 10/11/2024 3:37 AM EDT [facility] Comment:Reference range not established for this test. Plasma 10/11/2024 3:02 AM EDT 10/11/2024 3:08 AM EDT us Jodi Ortiz PharmD LAB BLOOD ORDERABLES Final Result Performing Organization Address [facility] Co de Phone Number [facility] [address] [facility]. [address] * IR Paracentesis incl imaging guide [...] diagnostic and therapeutic paracentesis. Bakari Wahl CNP, Claim Processor Procedure and Findings: The procedure was performed [...] Using ultrasound guidance, a 10 cm, 5-F JCD Centesis catheter was placed into the right [...] for diagnostic andtherapeutic paracentesis. Bakari Wahl CNP, Claim Processor Procedure and Findings: The procedure was performed [...] Fluid Clear 10/10/2024 5:29 PM EDT [facility] Neutrophil %, Fluid 9 % 10/10/2024 5:29 PM EDT [facility] Lymphocytes %, Fluid 13 % 10/10/2024 5:29 PM EDT [facility] Mesothelial %, Fluid 6 % 10/10/2024 5:29 PM EDT [facility] Macrophage %, Fluid 72 % 10/10/2024 5:29 PM EDT [facility] RBC, Fluid 2,662 /uL 10/10/2024 4:41 PM EDT [facility] Total Nucleated Cells, Fluid 89 /uL 10/10/2024 4:41 PM EDT [facility] Comment:Total Nucleated Cell s represent WBCs and other nucleated cells in the fluid such as lining cells. Ascitic Fluid ABDOMEN / Unknown 1:51 PM EDT 10/10/2024 3:56 PM EDT us Gerri Peterson MD BODY FLUIDS AND STOOLS ORDERABL ES Final Result Performing Organization Address [facility] Co de Phone Number [facility] [address] [facility]. [address] * Body Fluid Culture plus Stain [...] ES Final Result Performing Organization Address [facility] de Phone Number [facility] [address] [facility]. [address] * UPPER GI ENDOSCOPY (10/10/2024 11:48 AM EDT) 10/10/2024 11:4 8 AM EDT Narrative PROVATION - 10/10/2024 12:34 PM EDT [id number] Procedure Date: 10/10/2024 11:48 AM Patient Name: Julien Gilbert Date of : 1985 Admit Type: Inpatient Age: 39 Gender: Male Note Status: Finalized Attending MD: Lino Soto MD, [id number] Procedure: Upper GI endoscopy Indications: Gastroesopahgeal variceal [...] verified by the physician, the nurse, the bed laster and the application support technician in the pre-procedure area in the [...] to hypotension Procedure Code(s): --- Professional --- 17357, GC, Esophagogastroduodenoscopy, flexible, transoral; diagnostic, including collection of specimen(s) by brushing or washing, when performed (separate procedure) Diagnosis Code(s): --- Professional --- 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 All rights reserved. The codes documented in this report are preliminary and upon plastics design engineer review may be revised to meet [...] In: 12:10:16 PM Scope Out: 12:17:[address] [place] [address], [id number] us Provider Not In System PROCEDURE/MINOR SURGICAL [...] [facility] [address] [place] [address], [facility] * (ABNORMAL) Hepatic [...] [facility] [address] * Magnesium (10/10/2024 5:23 AM EDT) Magnesium 1.9 1.5 - 2.5 mg/dL 10/10/2024 6:21 AM EDT [facility] Plasma 10/10/2024 5:23 AM EDT 10/10/2024 5:50 AM EDT us Eileen Schroeder MD, PhD LAB BLOOD ORDERABLES Final Result Performing Organization Address [facility] Co de Phone Number [facility] [address] * (ABNORMAL) Renal Function Panel w/EGFR [...] BLOOD ORDERABLES Final Result Performing Organization Address City/State/[facility] Co de Phone Number [facility] [address] * (ABNORMAL) CBC (10/10/2024 5:23 AM [...] BLOOD ORDERABLES Final Result Performing Organization Address City/[facility]/ZIP Co de Phone Number [facility] [address] * Vancomycin, random (10/10/2024 5:23 AM EDT) Vancomycin Random 16.4 ug/mL 10/10/2024 6:22 AM EDT [facility] Comment:Reference range not established for this test. Plasma 10/10/2024 5:23 AM EDT 10/10/2024 5:51 AM EDT us Jodi Ortiz PharmD LAB BLOOD ORDERABLES Final Result Performing Organization Address [facility]/ZIP Co de Phone Number [facility] [address] * ECHO STRESS W/ CONTRAST (10/09/2024 4:37 PM EDT) Anatomical Region Laterality Modality Chest Ultrasound 10/09/2024 2:40 PM EDT Narrative 10/09/2024 6:45 PM EDT * [facility]* [address] [place] [address] Stress Echocardiogram Patient: Julien Gilbert Room: 8142 Height: 76in MR Number: [id number] : 1985 Weight: 262lb Account: [id number] Gender: M BP: 125 / 77 Study Date: 10/09/2024 Age: 39 BSA: 2.48m^2 Referring physician: Gerri Peterson Interpreting physician: Tonya Henriquez MD FELLOW Lisa Jha MD PERFORMING Tonya Henriquez MD HEAD START COORDINATOR Soco Gan ORDERING Gerri Peterson REFERRING Gerri [...] was augmented by the addition of hand fabric finisher and leg lifts. The infusion was terminated [...] at baseline or with provocation, shows no cfzhp-nd-zsry atrial level shunt. - Pulmonary arteries: Systolic [...] at baseline or with provocation, shows no xvouz-wd-kpkd atrial level shunt. Pulmonary artery: - Systolic [...] at baseline or with provocation, shows no qvnty-lb-qgoe atrial level shunt. Pericardium: - There is [...] peak heart rate and blood pressure was 17750jc Hg/min. Stress testing did not produce any [...] Reviewed and confirmed by Tonya Henriquez MD [id number]:45:20 Procedure Note Tonya Henriquez MD - 10/09/2024 * [facility]* [address] [place] [address] Stress Echocardiogram Patient: Julien Gilbert Room: 8142 Height: 76in MR Number: [id number] : 1985 Weight: 262lb Account: [id number] Gender: M BP: 125 / 77 Study Date: 10/09/2024 Age: 39 BSA: 2.48m^2 Referring physician: Gerri Peterson Interpreting physician: Tonya Henriquez MD FELLOW Lisa Jha MD PERFORMING Tonya Henriquez MD HEAD START COORDINATOR Soco Gan ORDERING Gerri Peterson REFERRING Gerri Peterson ATTENDING Fouzia Rene ADMITTING Abdulhai, Magaña Procedure:STRESS ECHO - PHARMACOLOGIC Order: Indications: Pre-Operative Clearance (Z01.818). PMH: EtOH Use Disorder. Risk factors: Hypertension. Dyslipidemia. Study data: Height: 76in. 193cm. Weight: 262lb. 118.8kg. The previousstudy was not available, so comparison was made to the report of 07/15/2024. Study status: Routine. [facility]. Intravenous [...] was augmented by the addition of hand fabric finisher and leg lifts. The infusion was terminated [...] at baseline or with provocation, shows no woylv-vs-qdjy atrial level shunt. - Pulmonary arteries: Systolic [...] study at baseline or with provocation, showsno cqqsh-gw-tsnz atrial level shunt. Pulmonary artery: - Systolic [...] at baseline or with provocation, shows no qyqxy-xm-mrio atrial level shunt. Pericardium: - There is [...] heart rate). The maximal predicted heart rate [id number]. The target heart rate was 152bpm. The target heart rate was achieved.The heart rate response to stress is normal. There is a normal resting blood pressure with an appropriate response to stress. The rate-pressureproduct for the peak heart rate and blood pressure was 64408xy Hg/min. Stress testing did not produce any [...] Reviewed and confirmed by Tonya Henriquez MD [id number] us Gerri Peterson MD CV ECHO ORDERABLES [...] 5.7 g/dL 10/09/2024 2:10 PM EDT [facility] Osmolality, Calculated 293 278 - 305 mOsm/kg 10/09/2024 2:10 PM EDT [facility] EGFR 27 10/09/2024 2:10 PM EDT [facility] [...] Result [facility] [address] * (ABNORMAL) Renal Function Panel w/EGFR, STAT (10/09/2024 8:14 AM EDT) Sodium 134 133 - 146 mmol/L 10/09/2024 8:47 AM EDT [facility] Potassium 3.4(L) 3.5 - 5.3 mmol/L 10/09/2024 8:47 AM EDT THE SURGICAL [...] [facility] [address] [id number], [facility] * Prepare RBC, leukoreduced, 1 Units (10/09/2024 6:16 AM EDT) Product Code [id number] HCLL Unit Number [id number] HCLL Dispense Status Presumed Transfused_PT HCLL Blood Expiration Date [id number] HCLL Coding System [id number] HCLL Blood Bank Product us Eileen Schroeder [...] ORDERABLES Final Result Performing Organization Address [facility]/ZIP Co de Phone Number [facility] [address] * (ABNORMAL) Hepatic Function Panel (10/09/2024 [...] ORDERABLES Final Result Performing Organization Address [facility] Co de Phone Number [facility] [address] [facility]. [address] * Magnesium (10/09/2024 4:59 AM EDT) Magnesium 1.8 1.5 - 2.5 mg/dL 10/09/2024 6:42 AM EDT [facility] Plasma 10/09/2024 4:59 AM EDT 10/09/2024 5:57 AM EDT Eileen Schroeder MD, PhD LAB BLOOD ORDERABLES Final Result Performing Organization Address [facility] de Phone Number [facility] [address] * (ABNORMAL) Renal Function Panel w/EGFR [...] [facility] EGFR 26 10/09/2024 6:42 AM EDT [facility] [...] Result [facility] [address] [place] [address], [facility] * (ABNORMAL) CBC (10/09/2024 4:59 AM EDT) Pathologist [facility] WBC 4.6 3.8 - 10.8 10E3/uL 10/09/2024 [...] Result [facility] [address] [place] [address], [facility] * Renal Tx Recipient (10/09/2024 4:59 AM EDT) Pathologist [facility] Renal Transplant Recipient The request and specimen(s) for this test have been received and transported to the [facility] at [address] [place] [address]. The [facility] will report results directly to the client. 10/09/2024 7:26 AM EDT [facility] Blood 10/09/2024 4:59 AM EDT 10/09/2024 7:26 AM EDT us Aaron Gonzalez MD LAB BLOOD ORDERABLES Final Resu lt [facility] [address] * Vancomycin, random (10/09/2024 4:59 AM EDT) Vancomycin Random 11.0 ug/mL 10/09/2024 6:33 AM EDT [facility] Comment:Reference range not established for this test. Plasma 10/09/2024 4:59 AM EDT 10/09/2024 5:56 AM EDT us Jodi Ortiz PharmD LAB BLOOD ORDERABLES Final Result Performing Organization Address City/[facility]/ZIP Co de Phone Number [facility] [address] [facility]. [address] * (ABNORMAL) CBC (10/08/2024 5:52 PM [...] ORDERABLES Final Result Performing Organization Address [facility] Co de Phone Number [facility] [address] * Transfuse RBC Has consent been obtained? Yes; Transfusion Rate: Per dept routine (10/08/2024 1:17 PM EDT) Eileen Schroeder MD, PhD NURSING TREATMENT ORD ERABLES - BLOOD ADMIN Final Result Performing Organization Address City/[facility] Co de Phone Number EXTERNAL * Transfuse RBC Has consent been obtained? Yes; Transfusion Rate: Per dept routine, 1 Units (10/08/2024 1:17 PM EDT) Eileen Schroeder MD, PhD NURSING TREATMENT ORD ERABLES - BLOOD ADMIN Final Result Performing Organization Address City/[facility] Co de Phone Number EXTERNAL * [...] Final Resu lt Performing Organization Address [facility] Co de Phone Number [facility] [address] * (ABNORMAL) Hemoglobin A1C (10/08/2024 10:25 [...] lt [facility] [address] [place] [id number], [facility] * (ABNORMAL) Vitamin D 25 Hydroxy (10/08/2024 10:25 AM EDT) Vit D, 25-Hydroxy 7.1(L) 30.0 - 100.0 ng/mL 10/08/2024 11:36 AM EDT [facility] Comment: Vitamin D deficiency has been defined by the [place] [employer] (IOM) and an Endocrine Society [...] 5 AM EDT 10/08/2024 10:49 AM EDT eGrri Peterson MD LAB BLOOD ORDERABLES Final Resu lt [facility] [address] * Iron Studies (Iron + TIBC) [...] Final Resu lt Performing Organization Address [facility] Co de Phone Number [facility] [address] [place] [address]. [address] * (ABNORMAL) Ferritin (10/08/2024 10:25 AM EDT) Ferritin 706.9(H) 23.9 - 336.2 ng/mL 10/08/2024 11:35 AM EDT [facility] Serum 10/08/2024 10:2 5 AM EDT 10/08/2024 10:49 AM EDT Gerri Peterson MD LAB BLOOD ORDERABLES Final Resu lt Performing Organization Address [facility] Co de Phone Number [facility] [address] [place] [address]. [address] * QuantiFERON TB2 Ag (10/08/2024 10:25 AM EDT) QuantiFERON TB2 Ag Value 0.07 10/10/2024 10:41 AM EDT [facility] Plasma 10/08/2024 10:2 5 AM EDT 10/08/2024 11:05 AM EDT Gerri Peterson MD LAB BLOOD ORDERABLES Final Resu lt Performing Organization Address City/[facility]/ZIP Co de Phone Number [facility] [address] [place] [address]. [address] * QuantiFERON TB1 Ag (10/08/2024 10:25 AM EDT) QuantiFERON TB1 Ag Value 0.06 10/10/2024 10:41 AM EDT [facility] Plasma 10/08/2024 10:2 5 AM EDT 10/08/2024 11:05 AM EDT Gerri Peterson MD LAB BLOOD ORDERABLES Final Resu lt [facility] [address] * QuantiFERON Nil (10/08/2024 10:25 AM EDT) QuantiFERON Nil 0.06 10:41 AM EDT [facility] Plasma 10/08/2024 10:2 5 AM EDT 10/08/2024 11:05 AM EDT Gerri Peterson MD LAB BLOOD ORDERABLES Final Resu lt Performing Organization Address [facility]/ZIP Co de Phone Number [facility] [address] [facility]. [address] * QuantiFERON Mitogen (10/08/2024 10:25 AM [...] Final Resu lt Performing Organization Address [facility]/ZIP Co de Phone Number [facility] [address] [facility]. [address] * Reticulocyte Count, Auto (10/08/2024 7:41 [...] Final Res ult Performing Organization Address [facility] Co de Phone Number [facility] [address] [facility]. [address] * (ABNORMAL) Haptoglobin (10/08/2024 7:41 AM EDT) Haptoglobin <30(L) 44 - 215 mg/dL 10/08/2024 8:53 AM EDT [facility] Serum 10/08/2024 7:41 AM EDT 10/08/2024 7:51 AM EDT Eileen Schroeder MD, PhD LAB BLOOD ORDERABLES Final Result Performing Organization Address [facility]/ZIP Co de Phone Number [facility] [address] [facility]. [address] * (ABNORMAL) CBC - Post Transfusion [...] Result [facility] [address] [place], [place] [id number] [place] [address] * Antibody Screen (10/08/2024 7:41 AM EDT) Antibody Screen Negative 10/08/2024 8:26 AM EDT [facility] Blood 10/08/2024 7:41 AM EDT 10/08/2024 7:57 AM EDT Narrative [facility] - 10/08/2024 8:32 AM EDT Testing performed by [facility] Transfusion Service Eileen Schroeder MD, PhD BLOOD BANK TEST ORDER PAL Final Result [facility] [address] * ABO/Rh (10/08/2024 7:41 AM EDT) ABO Grouping O 10/08/2024 8:14 AM EDT [facility] Rh Type Positive 10/08/2024 8:14 AM EDT [facility] Blood 10/08/2024 7:41 AM EDT 10/08/2024 7:57 AM EDT Eileen Schroeder MD, PhD BLOOD BANK TEST ORDER PAL Final Result Performing Organization Address [facility]/ZIP Co de Phone Number [facility] [address] * (ABNORMAL) Lactate dehydrogenase (10/08/2024 5:36 AM EDT) LD 102(L) 110 - 270 U/L 10/08/2024 8:20 AM EDT [facility] Plasma 10/08/2024 5:36 AM EDT 10/08/2024 7:58 AM EDT us Angie Blanchard MD LAB BLOOD ORDERABLES Final Res ult [facility] [address] [facility]. [address] * (ABNORMAL) Protime-INR (10/08/2024 5:36 AM EDT) Protime 26.9(H) 12.1 - 15.1 seconds 10/08/2024 6:11 AM EDT [facility] INR 2.4(H) 0.9 - 1.1 10/08/2024 6:11 AM EDT [facility] Comment: RECOMMENDED THERAPEUTIC RANGES USING INR : Stable oral anticoagulant therapy: 2.0 - 3.0 Mechanical prosthetic heart valve: 2.5 - 3.5 Recurrent acute myocardial infarction: 2.5 - 3.5 Plasma 10/08/2024 5:36 AM EDT 10/08/2024 5:52 AM EDT us Eileen Schroeder MD, PhD LAB BLOOD ORDERABLES Final Result [facility] [address] [place] [address], [facility] * (ABNORMAL) Hepatic [...] ORDERABLES Final Result [facility] [address] [facility]. [address] * Magnesium (10/08/2024 5:36 AM EDT) Magnesium 1.9 1.5 - 2.5 mg/dL 10/08/2024 6:25 AM EDT [facility] Plasma 10/08/2024 5:36 AM EDT 10/08/2024 5:52 AM EDT Eileen Schroeder MD, PhD LAB BLOOD ORDERABLES Final Result Performing Organization Address [facility]/ZIP Co de Phone Number [facility] [address] * (ABNORMAL) Renal Function Panel w/EGFR [...] [facility] EGFR 25 10/08/2024 6:25 AM EDT [facility] [...] [facility] [address] * (ABNORMAL) CBC (10/08/2024 5:36 AM [...] [facility] Whole Blood 10/08/2024 5:36 AM EDT 10/08/2024 5:53 AM EDT Narrative [facility] - 10/08/2024 6:41 AM EDT Peripheral blood smear was scanned per review criteria approved by the laboratory medical records custodian. us Eileen Schroeder MD, PhD LAB BLOOD ORDERABLES Final Result [facility] [address] * Vancomycin, random (10/08/2024 5:36 AM EDT) Vancomycin Random 16.0 ug/mL 10/08/2024 6:20 AM EDT [facility] Comment:Reference range not established for this test. Plasma 10/08/2024 5:36 AM EDT 10/08/2024 5:52 AM EDT us Jodi FreireD LAB BLOOD ORDERABLES Final Result [facility] [address] * Urine Drug Confirmation (10/07/2024 10:50 [...] EDT [facility] TEENAGE BABYSITTER STIMULANTS NOT PRESENT 1:33 PM EDT [facility] [address] * Giardia Cryptosporidium Antigens (10/07/2024 10:50 [...] [facility] [address] [place] [address], [facility] * (ABNORMAL) Urine [...] eveloped and its performance characteristics determined by [facility] which is certified under [...] eveloped and its performance characteristics determined by [facility] which is certified under [...] EDT 10/08/2024 2:08 AM EDT Narrative [facility] - 10/08/2024 3:00 AM EDT CONFIRMATION TO FOLLOW Gerri Peterson MD URINE ORDERABLES Final Result [facility] [address] * Comprehensive Drug Screen (10/07/2024 10:50 PM EDT) Creatinine, Ur CANCELED mg/dL 10/08/2024 7:09 AM EDT [facility] Comment:The released value 8 7.30 was canceled by YAQUELIN on 10/08/2024 07:09 BARBITURATES CANCELED [facility] Butalbital CANCELED [facility] Phenobarbital [facility]ED [facility] Secobarbital CANC[facility] BENZODIAZEPINES CANCELED [facility] Alprazolam CANCELED [facility] Clonazepam CANCELED [facility] Diazepam CANCELED [facility] Alpha-Hydroxyalprazo mcknight CANCELED [facility] Lorazepam CANCELED [facility] Midazolam CANCELED [facility] Nordiazepam [facility]CELED [facility] Oxazepam CANCELED [facility] Temazepam CANCELED [facility] CANNABINOIDS CANCELED [facility] THC-COOH CANCELED [facility] TEENAGE BABYSITTER STIMULANTS [facility]ELED [facility] Cocaine Metabolite(benzoylec gonine) CANCELED [facility] Amphetamine CANCELED [facility] Methamphetamine CANCELED [facility] EALT [...] [facility] Hydrocodone CANCELED [facility] Hydromorphone CANCELED [facility] Oxycodone CANCELED [facility] Oxymorphone CANCELED [facility] Meperidine CANCELED [facility] Normeperidine CANCELED [facility] Methadone CANCELED [facility] Methadone Metabolite (EDDP) CANCELED [facility] Tramadol CANCELED [facility] Fentanyl CANCELED [facility] Norfentanyl CANCELED [facility] Sufentanil CANCELED [facility] OPIOID ANTAGONISTS CANCELED [facility] Buprenorphine CANCELED [facility] Norbuprenorphine CANCELED [facility] Naltrexone CANCELED [facility] Naloxone CANCELED [facility] SEDATIVES/MUSCLE RELAXANTS CANCELED [facility] Carisoprodol CANCELED [facility] Meprobamate CANCELED [facility] TRICYCLIC ANTIDEPRESSANTS CANCELED [facility] Amitriptyline CANCELED [facility] Clomipramine CANCELED [facility] Desipramine CANCELED [facility] Doxepin CANCELED [facility] Imipramine CANCELED [facility] Nortriptyline CANCELED [facility] Urine Creatinine CANCELED mg/dL [facility] Nitrite CANCELED [facility] Glutaraldehyde CANCELED [facility] pH CANCELED 10/08/2024 7:09 AM EDT [facility] Comment:The released value 5 .6 was canceled by YAQUELIN on 10/08/2024 07:09 Specific [place] CANCELED 10/09/19 7:09 AM EDT [facility] Comment:The released value 1 .009 was canceled by YAQUELIN on 10/08/2024 07:09 Bleach [facility]ELED [facility] Pyridinium Chlorochromate CANCELED [facility] Urine 10/07/2024 10:5 0 PM EDT 10/08/2024 2:07 AM EDT Narrative [facility] - 10/08/2024 7:09 AM EDT See accn [id number] Gerri Peterson MD URINE ORDERABLES Edited Result - Final Performing Organization Address [facility] Co de Phone Number [facility] [address] [place] [address] * Ova and Parasite Comprehensive w/ Giardia/Crypto (10/07/2024 10:50 PM EDT) Pathologist [facility] O & P Method: Concentration and Trichrome [...] S Final Result Performing Organization Address [facility] de Phone Number [facility] [address] [place] [address] * Enteric Pathogen Panel (10/07/2024 10:50 PM EDT) Campylobacter Group (C. ecoli, C. jejuni, C. trino) Not Detected Not Detected 10/08/2024 4:40 AM EDT [facility] Salmonella species Not Detected Not Detected 10/08/2024 4:40 AM EDT [facility] Shigella species Not Detected Not Detected 10/08/2024 4:40 AM EDT [facility] Vibrio Group (Vibrio cholerae, Vibrio parahaemolyticus) [...] S Final Result Performing Organization Address [facility] Co de Phone Number [facility] [address] [facility]. [address] * Hepatitis C Antibody (10/07/2024 6:38 [...] [facility] [address] * Hepatitis B Surface Antibody, Quantitati (10/07/2024 6:38 PM EDT) Hep B S Ab Nonreactive Nonreactive 10/07/2024 8:00 PM EDT [facility] HBSAB NUMBER 7.88 0.00 - 7.99 mIU/mL 10/07/2024 8:00 PM EDT [facility] Serum 10/07/2024 6:38 PM EDT 10/07/2024 6:52 PM EDT [facility] - 10/07/2024 8:00 PM EDT Individual is considered not immune to HBV infection. Gerri Peterson MD LAB BLOOD ORDERABLES Final Resu lt Performing Organization Address [facility] Co de Phone Number [facility] [address] [facility]. [address] * Hepatitis B surface antigen (10/07/2024 6:38 PM EDT) Hep B Surface Ag Nonreactive Nonreactive 10/07/2024 7:51 PM EDT [facility] Comment:Health Department no tified in accordance with reportable infectious disease guidelines. Serum 10/07/2024 6:38 PM EDT 10/07/2024 6:52 PM EDT [facility] - 10/07/2024 7:51 PM EDT Specimen is considered negative for HBsAg. Gerri Peterson MD LAB BLOOD ORDERABLES Final Resu lt Performing Organization Address [facility]/ZIP Co de Phone Number [facility] [address] [facility]. [address] * Hepatitis A Antibody Total (10/07/2024 6:38 PM EDT) Anti-HAV Total (IgG + IgM) Nonreactive 10/07/2024 7:53 PM EDT [facility] Serum 10/07/2024 6:38 PM EDT 10/07/2024 6:52 PM EDT [facility] - 10/07/2024 7:53 PM EDT HAV antibodies not detected Gerri Peterson MD LAB BLOOD ORDERABLES Final Resu lt Performing Organization Address City/[facility]/ZIP Co de Phone Number [facility] [address] [facility]. [address] * Hepatitis A IgM (10/07/2024 6:38 PM EDT) Hep A IgM Nonreactive Nonreactive 10/07/2024 7:46 PM EDT [facility] Serum 10/07/2024 6:38 PM EDT 10/07/2024 6:52 PM EDT Narrative [facility] - 10/07/2024 7:46 PM EDT IgM anti-HAV not detected. Does not exclude the possibility of exposure to or infection with HAV. Levels of IgM anti-HAV may be below the cut-off in early infection. Gerri Peterson MD LAB BLOOD ORDERABLES Final Resu lt Performing Organization Address [facility] Co de Phone Number [facility] [address] [facility]. [address] * (ABNORMAL) Lipid Profile (10/07/2024 6:37 [...] 92 mg/dL 10/07/2024 7:42 PM EDT [facility] Comment: LIPID PROFILE INTERPRETATION CHOLESTEROL,TOTAL(mg/dL) DESIRABLE: [...] Cholesterol See Note mg/dL 7:42 PM EDT [facility] Comment:Unable to calculate result either because contributing result(s) are outside of reportable range or are not available. Plasma 10/07/2024 6:37 PM EDT 10/07/2024 7:06 PM EDT Narrative [facility]ALTH [facility] - 10/07/2024 7:42 PM EDT LDL cholesterol calculated using the Friedewald equation. us Gerri Peterson MD LAB BLOOD ORDERABLES Final Resu lt [facility] [address] [place] [id number], [facility] * (ABNORMAL) Alpha 1 Antitrypsin AAT Quant & Mutation (10/07/2024 6:37 PM EDT) A-1 Antitrypsin 99(L) 101 - 187 mg/dL 10/09/2024 4:28 AM EDT [facility] A-1 Antitrypsin Pheno Comment 10/10/2024 4:05 PM EDT [facility] Comment: A1A Phenotype is consistent with a heterozygous phenotype consisting of one M (normal) allele and one allele that cannot be identified at this time. The unknown allele is not consistent with Z (deficient), S (deficient), or F (deficient). MM Phenotype is considered to be normal , producing normal serum levels of ggwdx-3-iihzilqu inhibitor and not associated with clinical disease. [...] EDT 10/10/2024 4:08 PM EDT Narrative [facility] - 10/10/2024 4:08 PM EDT PERFORMED AT: [facility] [address] [id number] RUBBER CURER: Bassam Khalil, PhD PHONE: [phone] PERFORMED AT: [facility] [address] [id number] RUBBER CURER: Mandy Abdul MD PHONE: [phone] Gerri Peterson MD LAB BLOOD ORDERABLES Final Resu lt [facility] [address] * (ABNORMAL) CMV IgG Antibody (10/07/2024 [...] [facility] [address] [facility]. [address] * HIV-1 and HIV-2 Antibodies w Reflex (10/07/2024 6:37 PM EDT) HIV 1+2 AB/AGN Nonreactive Nonreactive 10/07/2024 7:54 PM EDT [facility] Serum 10/07/2024 6:37 PM EDT 10/07/2024 7:06 PM EDT Narrative [facility]ALTH [facility] - 10/07/2024 7:54 PM EDT \[id number] Gerri Peterson MD LAB BLOOD ORDERABLES Final Resu lt Performing Organization Address City/[facility]/ZIP Co de Phone Number [facility] [address] [facility]. [address] * TSH (Thyroid Stimulating Hormone) (10/07/2024 6:37 PM EDT) Pathologist [facility] TSH 0.81 0.45 - 4.12 uIU/mL 10/07/2024 8:17 PM EDT [facility] Serum 10/07/2024 6:37 PM EDT 10/07/2024 6:50 PM EDT Gerri Peterson MD LAB BLOOD ORDERABLES Final Resu lt [facility] [address] [facility]. [address] * Katie-Watkins virus early antigen antibody, [...] - 10/09/2024 3:07 PM EDT PERFORMED AT: [address] [id number] RUBBER CURER: Bassam Khalil, PhD PHONE: [phone] Gerri Peterson MD LAB BLOOD ORDERABLES Final Resu lt Performing Organization Address [facility] Co de Phone Number [facility] [address] [place] [address] * (ABNORMAL) Varicella zoster antibody, IgG (10/07/2024 [...] Final Resu lt Performing Organization Address [facility] Co de Phone Number [facility] [address] [place] [address] * Toxoplasma gondii antibody, IgG (10/07/2024 6:37 PM EDT) Toxoplasma Gondii IgG <3.0 0.0 - 7.1 IU/mL 10/09/2024 7:53 AM EDT [facility] Comment: Negative <7.2 Equivocal 7.2 - 8.7 Positive >8.7 Serum 10/07/2024 6:37 PM EDT 10/09/2024 8:07 AM EDT Narrative [facility] - 10/09/2024 8:07 AM EDT PERFORMED AT: [facility] [address] [id number] RUBBER CURER: Bassam Khalil, PhD PHONE: [phone] Gerri Peterson MD LAB BLOOD ORDERABLES Final Resu lt [facility] [address] [facility]. [address] * Syphilis Screening (Trepia) (10/07/2024 6:37 PM EDT) Treponema Pallidum Negative Negative 10/07/2024 8:27 PM EDT [facility] Comment: No serological evidence of infection with Treponema pallidum (incubating or early primary syphilis cannot be excluded). Serum 10/07/2024 6:37 PM EDT 10/07/2024 6:50 PM EDT us Gerri Peterson MD LAB BLOOD ORDERABLES Final Resu lt Performing Organization Address City/[facility]/ZIP Co de Phone Number [facility] [address] [facility]. [address] * Strongyloides Ab (10/07/2024 6:37 PM EDT) Strongyloides Ab Negative Negative 10/11/19 11:51 AM EDT [facility] Serum 10/07/2024 6:37 PM EDT 10/10/2024 12:07 PM EDT Narrative [facility] - 10/10/2024 12:07 PM EDT PERFORMED AT: [facility] [address] [id number] RUBBER CURER: Mandy Abdul MD PHONE: [phone] Gerri Peterson MD LAB BLOOD ORDERABLES Final Resu lt [facility] [address] [facility]. [address] * Phosphatidylethanol Confirmation, B (10/07/2024 6:37 [...] and its performance characteristics determined by [facility] in a manner consistent with CLIA requirements. This test has not been cleared or approved by the U.S. Food and Drug Administration. Test Performed by: [facility] - [address] [place] [address] It Application Architect: Kathy Ortiz Ph.D.; CLIA# [id number] Whole Blood 10/07/2024 6:37 PM EDT 10/10/2024 10:42 AM EDT us Gerri Peterson MD LAB BLOOD ORDERABLES Final Resu lt [facility] [address] [place] [address], [facility] * (ABNORMAL) MMR(IgG) Panel (Measles, [...] lt [facility] [address] [place] [address], [facility] * IgA (10/07/2024 6:37 PM EDT) IgA 227.0 70.0 - 400.0 mg/dL 10/08/2024 11:07 AM EDT [facility] Comment:Please interpret the se findings in conjunction with clinical findings, protein electrophoresis, and immunotyping/immunofixation results. Serum 10/07/2024 6:37 PM EDT 10/07/2024 6:50 PM EDT Gerri Peterson MD LAB BLOOD ORDERABLES Final Resu lt Performing Organization Address City/[facility]/ZIP Co de Phone Number [facility] [address] * Ethanol, Serum (10/07/2024 6:37 PM EDT) Ethanol <10 0 - 10 mg/dL 10/07/2024 8:36 PM EDT [facility] Serum 10/07/2024 6:37 PM EDT 10/07/2024 6:50 PM EDT Gerri Peterson MD LAB BLOOD ORDERABLES Final Resu lt Performing Organization Address [facility] Co de Phone Number [facility] [address] [facility]. [address] * ABO/Rh - Second (10/07/2024 6:37 [facility] [address] * ABO/Rh- Initial (10/07/2024 6:37 PM EDT) ABO Grouping O 10/07/2024 7:59 PM EDT [facility] Rh Type Positive 10/07/2024 7:59 PM EDT [facility] Blood 10/07/2024 6:37 PM EDT 10/07/2024 7:25 PM EDT Gerri Peterson MD BLOOD BANK TEST ORDERABLES Denisse l Result [facility] [address] [place] [address], [facility] * X-ray Mandible minimum 4-views [...] EXAM: US ABDOMEN COMPLETE EXAM: US DUPLEX [id number] COMPLETE INDICATION: elevated bilirubin COMPARISON: Ultrasound and [...] EXAM: US ABDOMEN COMPLETE EXAM: US DUPLEX [id number] COMPLETE INDICATION: elevated bilirubin COMPARISON: Ultrasound and [...] [place] US ORDERABLES Final Result * US Duplex Fhs-Khd-Mqlvhng Comp (10/07/2024 3:48 PM EDT) Anatomical Region [...] EXAM: US ABDOMEN COMPLETE EXAM: US DUPLEX [id number] COMPLETE INDICATION: elevated bilirubin COMPARISON: Ultrasound and [...] EXAM: US ABDOMEN COMPLETE EXAM: US DUPLEX [id number] COMPLETE INDICATION: elevated bilirubin COMPARISON: Ultrasound and [...] (ABNORMAL) Protime-INR (10/07/2024 6:00 AM EDT) Pathologist [facility] Protime 26.9(H) 12.1 - 15.1 seconds 10/07/2024 [...] [facility] [address] * (ABNORMAL) Hepatic Function Panel (10/07/2024 [...] BLOOD ORDERABLES Final Result Performing Organization Address City/[facility]/ZIP Co de Phone Number [facility] [address] * Magnesium (10/07/2024 6:00 AM EDT) Magnesium 1.7 1.5 - 2.5 mg/dL 10/07/2024 7:10 AM EDT [facility] Plasma 10/07/2024 6:00 AM EDT 10/07/2024 6:39 AM EDT Eileen Schroeder MD, PhD LAB BLOOD ORDERABLES Final Result Performing Organization Address [facility] Co de Phone Number [facility] [address] * (ABNORMAL) Renal Function Panel w/EGFR [...] Result [facility] [address] [place] [address], [facility] * (ABNORMAL) CBC [...] criteria approved by the laboratory medical records custodian. us Eileen Schroeder MD, PhD LAB BLOOD ORDERABLES Final Result [facility] [address] [facility] [place] [address], [facility] * AFP Tumor Marker (10/07/2024 6:00 AM EDT) AFP-Tumor Marker 2.0 0.0 - 9.0 ng/mL 10/07/2024 7:11 AM EDT [facility] Serum 10/07/2024 6:00 AM EDT 10/07/2024 6:39 AM EDT Narrative [facility] - 10/07/2024 7:11 AM EDT The testing method for AFP is a chemiluminescent immunoassay manufactured by [employer] Concentrations of AFP obtained by different assay methods or kits may vary and cannot be used interchangeably. AFP results cannot be interpreted as absolute evidence of the presence or absence of malignant disease. Shila Rivera MD LAB BLOOD ORDERABLES Final Resul t Performing Organization Address City/[facility]/ZIP Co de Phone Number [facility] [address] [facility]. [address] * Vancomycin, random (10/07/2024 6:00 AM EDT) Vancomycin Random 21.1 ug/mL 10/07/2024 7:08 AM EDT [facility] Comment:Reference range not established for this test. Plasma 10/07/2024 6:00 AM EDT 10/07/2024 6:39 AM EDT Kiet Gardiner PharmD LAB BLOOD ORDERABLES Final Re sult Performing Organization Address [facility] Co de Phone Number [facility] [address] * Osmolality (10/06/2024 2:50 PM EDT) Osmolality, Measured 304 278 - 305 mOsm/kg 10/06/2024 3:49 PM EDT [facility] Serum 10/06/2024 2:50 PM EDT 10/06/2024 2:56 PM EDT Chari Vanegas MD LAB BLOOD ORDERABLES Final Resul t Performing Organization Address [facility]/ZIP Co de Phone Number [facility] [address] * CT Head WO contrast (10/06/2024 [...] [facility] [address] [facility]. [address] * Potassium, urine, random (10/06/2024 1:25 PM EDT) Potassium Urine Random 50.0 mmol/L 10/06/2024 1:56 PM EDT [facility] Comment:Reference range not established for this test. Urine 10/06/2024 1:2 5 PM EDT 10/06/2024 1:32 PM EDT us Chari Vanegas MD URINE ORDERABLES Final Result Performing Organization Address [facility] Co de Phone Number [facility] [address] * Sodium, urine, random (10/06/2024 1:25 PM EDT) Sodium, Ur <10 mmol/L 10/06/2024 1:56 PM EDT [facility] Comment:Reference range not established for this test. Urine 10/06/2024 1:25 PM EDT 10/06/2024 1:32 PM EDT us Chari Vanegas MD URINE ORDERABLES Final Result Performing Organization Address City/[facility] Co de Phone Number [facility] [address] * Creatinine, Urine, Random (10/06/2024 1:25 PM EDT) Creatinine, Urine 87.40 mg/dL 10/06/2024 1:56 PM EDT [facility] Comment:Reference range not established for this test. Urine 10/06/2024 1:25 PM EDT 10/06/2024 1:32 PM EDT us Chari Vanegas MD URINE ORDERABLES Final Result Performing Organization Address City/[facility]/ZIP Co de Phone Number [facility] [address] [facility]. [address] * Osmolality, Urine (10/06/2024 1:25 PM EDT) Osmolality, Ur 386 50 - 1,200 mOsm/kg 10/06/2024 1:55 PM EDT [facility] Urine 10/06/2024 1:25 PM EDT 10/06/2024 1:32 PM EDT us Chari Vanegas MD URINE ORDERABLES Final Result Performing Organization Address [facility] Co de Phone Number [facility] [address] [facility]. [address] * Urine Drug Confirmation (10/06/2024 11:51 [...] PRESENT 10/09/2024 3:23 PM EDT [facility] TEENAGE BABYSITTER STIMULANTS NOT PRESENT 3:23 PM EDT THE [...] [facility] [address] [facility] [place] [address], [facility] * (ABNORMAL) Urine [...] eveloped and its performance characteristics determined by [facility] which is certified under [...] eveloped and its performance characteristics determined by [facility] which is certified under [...] URINE ORDERABLES Final Result Performing Organization Address City/[facility]/ZIP Co de Phone Number [facility] [address] [place] [address] * Chloride, urine, random (10/06/2024 11:51 AM EDT) Chloride, Ur <15 mmol/L 10/06/2024 1:13 PM EDT [facility] Comment:Reference range not established for this test. Urine 10/06/2024 11:5 1 AM EDT 10/06/2024 11:57 AM EDT CamGSMella DO URINE ORDERABLES Final Result [facility] [address] * Potassium, urine, random (10/06/2024 11:51 AM EDT) Potassium Urine Random 49.0 mmol/L 10/06/2024 1:13 PM EDT [facility] Comment:Reference range not established for this test. Urine 10/06/2024 11:5 1 AM EDT 10/06/2024 11:57 AM EDT CamGSMana maría URINE ORDERABLES Final Result Performing Organization Address City/[facility]/ZIP Co de Phone Number [facility] [address] [facility]. [address] * Sodium, urine, random (10/06/2024 11:51 AM EDT) Sodium, Ur <10 mmol/L 10/06/2024 1:13 PM EDT [facility] Comment:Reference range not established for this test. Urine 10/06/2024 11:5 1 AM EDT 10/06/2024 11:57 AM EDT CamGSMana maría URINE ORDERABLES Final Result Performing Organization Address City/[facility]/ZIP Co de Phone Number [facility] [address] [facility]. [address] * Urinalysis w/Rfl to Microscopic (10/06/2024 11:51 AM EDT) Color, UA Yellow Yellow,Straw 10/06/2024 12:25 PM EDT [facility] Clarity, UA Clear Clear 10/06/2024 12:25 PM EDT [facility] Specific [place], UA 1.014 1.005 - 1.035 10/06/2024 12:25 [...] [facility] [address] * Lactic Acid, STAT (10/06/2024 7:38 AM EDT) Lactate 0.9 0.5 - 2.2 mmol/L 10/06/2024 8:05 AM EDT [facility] Plasma 10/06/2024 7:38 AM EDT 10/06/2024 7:42 AM EDT us Chari Vanegas MD LAB BLOOD ORDERABLES Final Resul t [facility] [address] * (ABNORMAL) CBC, STAT (10/06/2024 7:37 [...] t [facility] [address] [id number] * (ABNORMAL) Comprehensive Metabolic Panel (10/06/2024 7:37 AM EDT) Sodium 129(L) 133 - 146 mmol/L 10/06/2024 8:16 AM EDT [facility] Potassium 4.4 3.5 - 5.3 mmol/L 10/06/2024 8:16 AM EDT [facility] Chloride 100 98 - 110 mmol/L 10/06/2024 8:16 AM EDT [facility] CO2 18(L) 21 - 33 mmol/L [facility]/06[facility]24 [facility] An[facility] Gap 11 3 - 16 mmol/L 10/06[facility]2024 [facility] BUN 62(H) 7 - 25 mg/dL 10/06/2024 8:[facility] Creatinine 3.40(H) 0.60 - 1.30 mg/dL 10/06/2024 8:16 AM EDT [facility] Glucose 98 70 - 100 mg/dL 10/06/2024 8:16 AM EDT [facility] Calcium 9.5 8.6 - 10.3 mg/dL 10/06/2024 8:16 AM EDT [facility] Total Bilirubin 14.3(H) 0.0 - 1.5 mg/dL 10/06/2024 8:[facility] AST 57(H) 13 - 39 U/L 10/06/2024 8:16 AM EDT [facility] ALT 29 7 - 52 U/L 10/06/2024 8:16 AM [facility] Alkaline Phosphatase 158(H) 36 - 125 U/L 10/06/2024 8:16 AM [facility] Total Protein 5.6(L) 6.4 - 8.9 g/dL 10/06/2024 8:16 AM [facility] Albumin 3.6 3.5 - 5.7 g/dL 10/06/2024 8:16 AM T [facility] Osmolality, Calculated 286 278 - 305 mOsm/kg 10/06/2024 8:16 AM [facility] EGFR 22 10/06/2024 8:16 AM [facility] Comment:As of 2021, the estimated GFR [...] [facility] [address] [place] [address], [facility] * (ABNORMAL) Venous [...] 0.7 % 10/06/2024 7:46 AM EDT THE SURGICAL [...] [facility] [address] [place] [address], [facility] * (ABNORMAL) Venous [...] 4:03 AM EDT 10/06/2024 4:12 AM EDT [employer] [facility] BLOOD ORDERABLES Final Resul t Performing Organization Address [facility] de Phone Number [facility] [address] * (ABNORMAL) Protime-INR (10/06/2024 4:01 AM [...] 4:01 AM EDT 10/06/2024 4:11 AM EDT [employer] LAB BLOOD ORDERABLES Final Resul t Performing Organization Address [facility] de Phone Number [facility] [address] [facility]. [address] * (ABNORMAL) Hepatic Function Panel, AM [...] 4:01 AM EDT 10/06/2024 4:22 AM EDT [employer] BLOOD ORDERABLES Final Resul t [facility] [address] [facility]. [address] * Magnesium (10/06/2024 4:01 AM EDT) Magnesium 1.8 1.5 - 2.5 mg/dL 10/06/2024 4:57 AM EDT [facility] Plasma 10/06/2024 4:01 AM EDT 10/06/2024 4:22 AM EDT [employer] [facility] BLOOD ORDERABLES Final Resul t Performing Organization Address City/[facility]/ZIP Co de Phone Number [facility] [address] [facility]. [address] * (ABNORMAL) Renal Function Panel w/EGFR [...] 16 mmol/L 10/06/2024 4:57 AM EDT [facility] BUN 61(H) 7 - 25 mg/dL 10/06/2024 4:57 AM EDT [facility] Creatinine 3.49(H) 0.60 - 1.30 mg/dL 10/06/2024 4:57 AM EDT [facility] Glucose 104(H) 70 - 100 mg/dL 10/06/2024 4:57 AM EDT [facility] Calcium 9.2 8.6 - 10.3 mg/dL 10/06/2024 4:57 AM EDT [facility] Phosphorus 5.3(H) 2.1 - 4.7 mg/dL 10/06/2024 4:57 AM EDT [facility] Albumin 3.4(L) 3.5 - 5.7 g/dL 10/06/2024 4:57 AM EDT [facility] Osmolality, Calculated 286 278 - 305 mOsm/kg 10/06/2024 4:57 AM EDT [facility] EGFR 22 10/06/2024 4:57 AM EDT [facility] [address] * (ABNORMAL) CBC (10/06/2024 4:01 AM EDT) WBC 7.6 3.8 - 10.8 10E3/uL 10/06/2024 5:16 AM EDT [facility] RBC 2.77(L) 4.20 - 5.80 10E6/uL [...] 400 10E3/uL 10/06/2024 5:16 AM EDT [facility] Comment:Specimen checked for clots. None detected. MPV 8.4 7.5 - 11.5 fL 10/06/2024 5:16 AM EDT [facility] Whole Blood 10/06/2024 4:01 AM EDT 10/06/2024 4:11 AM EDT us Bisi Hernandez DO LAB BLOOD ORDERABLES Final Resul t [facility] [address] * Hepatitis C Antibody (10/06/2024 4:01 AM EDT) HCV Ab Nonreactive Nonreactive 10/06/2024 5:12 AM EDT [facility] Comment:Health Department no tified in accordance with reportable infectious disease guidelines. Serum 10/06/2024 4:01 AM EDT 10/06/2024 4:11 AM EDT [facility] - 10/06/2024 5:12 AM EDT Antibodies to HCV not detected; does not exclude the possibility of exposure to HCV. [employer] LAB BLOOD ORDERABLES Final Resul t Performing Organization Address [facility] Co de Phone Number [facility] [address] [place] [address]. [address] * (ABNORMAL) Hepatitis B Surface Antibody, Quantitati (10/06/2024 4:01 AM EDT) Hep B S Ab Reactive( A) Nonreactive 10/06/2024 5:16 AM EDT [facility] HBSAB NUMBER 11.50(H) 0.00 - 7.99 mIU/mL 10/06/2024 5:16 AM EDT [facility] Serum 10/06/2024 4:01 AM EDT 10/06/2024 4:11 AM EDT [facility] - 10/06/2024 5:16 AM EDT Individual is considered immune to HBV infection. [employer] LAB BLOOD ORDERABLES Final Resul t Performing Organization Address [facility] Co de Phone Number [facility] [address] [place] [address]. [address] * Hepatitis B surface antigen (10/06/2024 4:01 AM EDT) Hep B Surface Ag Nonreactive Nonreactive 10/06/2024 5:07 AM EDT [facility] Comment:Health Department no tified in accordance with reportable infectious disease guidelines. Serum 10/06/2024 4:01 AM EDT 10/06/2024 4:11 AM EDT [facility] - 10/06/2024 5:07 AM EDT Specimen is considered negative for HBsAg. [employer] LAB BLOOD ORDERABLES Final Resul t Performing Organization Address City/[facility]/ZIP Co de Phone Number [facility] [address] * Hepatitis A Antibody Total (10/06/2024 4:01 AM EDT) Anti-HAV Total (IgG + IgM) Nonreactive 10/06/2024 5:08 AM EDT [facility] Serum 10/06/2024 4:01 AM EDT 10/06/2024 4:11 AM EDT [facility] - 10/06/2024 5:08 AM EDT HAV antibodies not detected [employer] BLOOD ORDERABLES Final Resul t Performing Organization Address [facility] Co de Phone Number [facility] [address] [facility]. [address] * Hepatitis A IgM (10/06/2024 4:01 AM EDT) Hep A IgM Nonreactive Nonreactive 10/06/2024 5:02 AM EDT [facility] Serum 10/06/2024 4:01 AM EDT 10/06/2024 4:11 AM EDT [facility] - 10/06/2024 5:02 AM EDT IgM anti-HAV not detected. Does not exclude the possibility of exposure to or infection with HAV. Levels of IgM anti-HAV may be below the cut-off in early infection. [employer] [facility] BLOOD ORDERABLES Final Resul t Performing Organization Address City/[facility]/ZIP Co de Phone Number [facility] [address] [facility]. [address] * (ABNORMAL) Salicylate Level (10/06/2024 4:01 AM EDT) Salicylate Lvl <3(L) 10 - 30 mg/dL 10/06/2024 4:58 AM EDT [facility] Serum 10/06/2024 4:01 AM EDT 10/06/2024 4:22 AM EDT [employer] BLOOD ORDERABLES Final Resul t Performing Organization Address [facility] de Phone Number [facility] [address] [facility]. [address] * AFP Tumor Marker (10/06/2024 4:01 AM EDT) [facility] AFP-Tumor Marker 2.6 0.0 - 9.0 ng/mL 10/06/2024 4:55 AM EDT [facility] Serum 10/06/2024 4:01 AM EDT 10/06/2024 4:22 AM EDT Narrative [facility] - 10/06/2024 4:55 AM EDT The testing method for AFP is a chemiluminescent immunoassay manufactured by [employer] Concentrations of AFP obtained by different assay methods or kits may vary and cannot be used interchangeably. AFP results cannot be interpreted as absolute evidence of the presence or absence of malignant disease. [employer] LAB BLOOD ORDERABLES Final Resul t Performing Organization Address [facility] de Phone Number [facility] [address] [facility]. [address] * Upper Respiratory Viral/Bacterial Panel-LINGO CLEANER Only (10/06/2024 3:12 AM EDT) [facility] Adenovirus Not Detected Not Detected 10/06/2024 11:38 PM EDT [facility] Coronavirus (229E,HKU1,NL63,OC 43) Not Detected Not Detected 10/06/2024 11:38 PM EDT [facility] SARS-CoV-2 Not Detected Not Detected 10/06/2024 11:38 PM EDT [facility] Human Metapneumovirus Not Detected Not Detected [...] Test results have been sent to the [facility] in accordance with state requirements. For a fact sheet for healthcare providers, see https://www.fda.gov/media/899903/download. For a fact sheet for patients, see https://www.fda.gov/media/575393/download. Nasopharyngeal Swab NASOPHARYNGEAL SWAB / Unknown 10/06/2024 3:12 AM EDT 10/06/2024 5:41 PM EDT Comment:LINGO CLEANER us Bisi Hernandez DO BODY FLUIDS AND STOOLS ORDERABLE S Final Result [facility] [address] [place] [address], [facility] * X-ray Portable Chest (10/06/2024 [...] 10/06/2024 2:33 AM EDT Bisi Hernandez DO [facility] DIAGNOSTIC IMAGING ORDERABLE S Final Result * Phosphatidylethanol Confirmation, B (10/06/2024 1:04 AM EDT) PETH 16:0/18.1 (POPETH) <10 Cutoff: 10 ng/mL 10/10/2024 3:11 AM EDT [facility] Comment: Phosphatidylethanol (PEth) homologues result interpretation [...] Cutoff: 10 ng/mL 10/10/2024 3:11 AM EDT [facility] Comment: PEth 16:0/18:2 (PLPEth) Reference ranges are not well established PEth Interpretation Negative. 10/10 3:11 AM EDT [facility] Comment: ADDITIONAL INFORMATION This report is intended for use in clinical monitoring and management of patients. It is not intended for use in employment-related testing. This test was developed and its performance characteristics determined by [facility] in a manner consistent with CLIA requirements. This test has not been cleared or approved by the U.S. Food and Drug Administration. Test Performed by: [facility] - [address] [address] It Application Architect: Kathy Ortiz Ph.D.; CLIA# [id number] Whole Blood 10/06/2024 1:04 AM EDT 10/10/2024 3:11 AM EDT [employer] BLOOD ORDERABLES Final Resul t Performing Organization Address City/[facility]/ZIP Co de Phone Number [facility] [address] [place] [address]. [address] * (ABNORMAL) Acetaminophen Level (10/06/2024 1:04 AM EDT) Acetaminophen Level <10(L) 10 - 30 ug/mL 10/06/2024 2:08 AM EDT [facility] Serum 10/06/2024 1:04 AM EDT 10/06/2024 1:30 AM EDT [facility] BLOOD ORDERABLES Final Resul t Performing Organization Address [facility] Co de Phone Number [facility] [address] [place] [address]. [address] * Ethanol, Serum (10/06/2024 1:04 AM EDT) Ethanol <10 0 - 10 mg/dL 10/06/2024 2:08 AM EDT [facility] Serum 10/06/2024 1:04 AM EDT 10/06/2024 1:30 AM EDT [facility] BLOOD ORDERABLES Final Resul t Performing Organization Address City/[facility] Co de Phone Number [address] * #2 Blood culture-Peripheral site 2 [...] [facility] [address] * #1 Blood culture-Peripheral site 1 (10/06/2024 1:04 AM EDT) Culture Result No Growth After 5 Days [facility] Blood BLOOD SPECIMEN / Unknown 10/06/2024 1:04 AM EDT 10/06/2024 4:57 AM EDT Narrative [facility] - 10/11/2024 5:01 AM EDT Suboptimal volume of blood received. Interpret results with caution. BisiCodaricaana maría DO MICROBIOLOGY - GENERAL ORDERABLE S Final Result [facility] [address] * Ammonia (10/06/2024 1:04 AM EDT) Ammonia 77 27 - 90 ug/dL 10/06/2024 2:00 AM EDT [facility] Plasma 10/06/2024 1:04 AM EDT 10/06/2024 1:30 AM EDT [facility] BLOOD ORDER[facility] Final Resul t [facility] [address] * Thyroid Function [place] (10/06/2024 1:04 AM EDT) TSH 0.84 0.45 - 4.12 uIU/mL 10/06/2024 2:20 AM EDT [facility] Serum 10/06/2024 1:04 AM EDT 10/06/2024 1:39 AM EDT us Terrafugia DO LAB BLOOD ORDERABLES Final Resul t Performing Organization Address [facility] Co de Phone Number [facility] [address] [facility]. [address] * (ABNORMAL) Protime-INR (10/06/2024 1:04 AM [...] AM EDT 10/06/2024 1:30 AM EDT us [employer] LAB BLOOD ORDERABLES Final Resul t Performing Organization Address [facility] Co de Phone Number [facility] [address] [facility]. [address] * Lactic Acid, STAT (10/06/2024 1:04 AM EDT) Lactate 1.2 0.5 - 2.2 mmol/L 10/06/2024 1:59 AM EDT [facility] Plasma 10/06/2024 1:04 AM EDT 10/06/2024 1:30 AM EDT [employer] DO LAB BLOOD ORDERABLES Final Resul t Performing Organization Address [facility] Co de Phone Number [facility] [address] [facility]. [address] * (ABNORMAL) CBC, STAT (10/06/2024 1:04 [...] t [facility] [address] [place] [address], [facility] * (ABNORMAL) Comprehensive Metabolic Panel (10/06/2024 1:04 AM EDT) Sodium 127(L) 133 - 146 mmol/L 10/06/2024 2:05 AM EDT [facility] Potassium 4.5 3.5 - 5.3 mmol/L 10/06/2024 2:05 AM T [facility] Chloride 99 98 - 110 mmol/L 10/06/2024 2:05 AM [facility] CO2 18(L) 21 - 33 mmol/L 10/06/2024 2:05 AM [facility] Anion Gap 10 3 - 16 mmol/L 10/06/2024 2:05 AM [facility] BUN 59(H) 7 - 25 mg/dL 10/06/2024 2:05 AM [facility] Creatinine 3.54(H) 0.60 - 1.30 mg/dL 10/06/2024 2:05 AM [facility] Glucose 116(H) 70 - 100 mg/dL 10/06/2024 2:05 AM [facility] Calcium 9.0 8.6 - 10.3 mg/dL 10/06/2024 2:05 AM [facility] Total Bilirubin 14.8(H) 0.0 - 1.5 mg/dL 10/06/2024 2:05 AM [facility] AST 61(H) 13 - 39 U/L 10/06/2024 2:05 AM [facility] ALT 33 7 - 52 U/L 10/06/2024 2:05 AM [facility] Alkaline Phosphatase 174(H) 36 - 125 U/L 10/06/2024 2:05 AM [facility] Total Protein 5.2(L) 6.4 - 8.9 g/dL 10/06/2024 2:05 AM [facility] Albumin 3.3(L) 3.5 - 5.7 g/dL 10/06/2024 2:05 AM [facility] Osmolality, Calculated 282 278 - 305 mOsm/kg 10/06/2024 2:05 AM [facility] EGFR 21 10/06/2024 2:05 AM [facility] Comment:As of 2021, the estimated GFR [...] DO LAB BLOOD ORDERABLES Final Resul t [facility] [address] documented in this encounter Visit Diagnoses [...] RN)[id number] (Given - Provider: Chelsy Bush, ЮЛИЯ) [id number] [...] 0200 0820 (Given - Provider: Anu Wolff RN)2112 (Given - Provider: Chelsy Bush RN) 0833 [...] documented as of this encounter Care Teams Driver Relationship Specialty Start Date End Date Enedina Mcguire NP [address] [place], [place] [id number] PCP - General Internal Medicine 10/05/24 documented as of this encounter
--- OUTSIDE RECORDS SUMMARY | 2024-10-10 12:01 | XMS_ITS | Encounter Summary ---
Author Organization [facility] Address [address] [place] [address] Care Team Providers Care Box Gluer Name Role Phone Enedina Mcguire NP Primary Care Provider [phone] Source Comments This information has been disclosed [...] release of HIV test results or diagnoses. [id number] Reason for Visit * Auth/Cert (Routine) Specialty Diagnoses / Procedures Referred By Shane hernadez Referred To Contact General Internal Medicine Diagnoses [facility] [address] [place] [address] Phone: tel: Referral ID Status Reason Start Date Expiration Date Visits Re quested Visits Authorized [id number] 1 1 Encounter Details Date Type Department Care Team (Late st Contact Info) Description 10/10/2024 12:01 PM EDT Anesthesia Event [facility] ENDOSCOPY [address] [place] [address] Cady Bhat MD [address] [place] [address] oBb Leggett MD [address] [facility] [address] [place] [address] Anesthesia Record Procedure Summary Procedure [...] Recorded In the past 12 months has [employer], [employer], or [employer] threatened to shut off services in your [...] any time in the past 12 m [facility], were you homeless or living [...] Bhat MD - 10/10/2024 10:15 AM EDT [facility] DEPARTMENT OF ANESTHESIOLOGY PRE-PROCEDURAL EVALUATION Julien Anderson [...] Low Risk (07/09/2024) Received from [facility] Overall Financial Resource Strain (CARDIA) Difficulty [...] No Physical Activity: Unknown (07/14/2024) Received from [facility] Exercise Vital Sign Days of Exercise per Week: Patient unable to answer Minutes of Exercise per Session: Not on file Stress: Patient Unable To Answer (07/14/2024) Received from [facility] [employer] of Occupational Health - Occupational Stress Questionnaire Feeling of Stress : Patient unable to answer Social Connections: Patient Unable To Answer (07/14/2024) Received from [facility] Social Connection and Isolation Panel [NHANES] Frequency of Communication with Friends and Family: Patient unable to answer Frequency of Social Gatherings with Friends and Family: Patient unable to answer Attends Sikhism Services: Patient unable to answer Active Member [...] in detail. Questions answered. Plan discussed with APPLIED BIOLOGY PROFESSOR. [1] Allergies Allergen Reactions Adhesive Itching and Rash Tegaderm adhesive on Ivs, pt states its tolerable Duloxetine Other (See Comments) Became Manic documented in this encounter Plan of Treatment Upcoming Encounters Date Type Department Care Team (Late st Contact Info) Description 12/05/2024 8:01 AM EDT Hospital Encounter [facility] ENDOSCOPY [address] [place] [address] Chris Orosco MD [address] [place] [phone] 12/05/2024 8:01 AM EDT - 12/05/2024 8:31 AM EDT Surgery [facility] ENDOSCOPY [address] [place] [address] Chris Orosco MD [address] [place] [phone] EGD Scheduled Procedures Name Priority Associated Diagnoses Date/Ti me EGD Cirrhosis of liver with ascites, unspecified hepatic cirrhosis type (CMS-HCC) 12/05/2024 8:01 AM EDT documented as of this encounter Visit Diagnoses Diagnosis Cirrhosis of liver with ascites, unspecified hepatic cirrhosis type (CMS-HCC) * Transfer of Care - NAHED Puri [...] , and oriented Post vital signs: Vitals: 05/30/25 1030 BP: 100/50 Pulse: 94 Resp: 18 Temp: 97.1 SpO2: 100% Complications: No notable events documented. Date 10/09/24699 - 10/10/2465810/10/24699 - 10/11/24 0659 Shift [phone] 4066-7621 24 Hour Total 8953-6639 4917-4152 1092-9072 24 Hour Total INTAKE P.O. 210 210 [...] as of this encounter Care Teams Box Gluer Relationship Specialty Start Date End Date Enedina Mcguire NP [address] [place] [address] PCP - General Internal Medicine 10/05/24 documented as of this encounter
--- OUTSIDE RECORDS SUMMARY | 2024-10-14 08:42 | XMS_ITS | Encounter Summary ---
Author Organization [facility] Address [facility] [place] [address] Care Team Providers Care Inductor Tester Name Role Phone Enedina Mcguire NP Primary Care Provider [phone] Source Comments This information has been disclosed [...] release of HIV test results or diagnoses. [id number] Health Reason for Visit * Auth/Cert (Routine) Specialty Diagnoses / Procedures Referred By Shane hernadez Referred To Contact General Internal Medicine Diagnoses AMS [facility] [address] [place] [address] Phone: tel: Referral ID Status Reason Start Date Expiration Date Visits Re quested Visits Authorized [id number] 1 1 Encounter Details Date Type Department Care Team (Late st Contact Info) Description 10/14/2024 8:42 AM EDT - 10/14/2024 9:27 AM EDT Surgery [facility] Cardiac Arbitrator [address] [place] [address] Irving Matta MD [address] [facility] [place] [address] Left Heart Cath Surgery Details [...] the past 12 months has th e sezmi, gas, oil, or water [email or web address] threatened to shut off services in your [...] any time in the past 12 m [facility], were you homeless or living in a [...] Kandy Fuentes - 10/17/2024 10:29 AM EDT [facility] Care Management Discharge Summary [...] Home post discharge: Not Applicable Kandy [facility] [phone] * William Blount MD - 10/17/2024 8:50 AM EDT [facility] Inpatient Discharge Summary Patient: Julien Gilbert Age: 39 y.o. CSN: [id number] Date of Admission: 10/05/2024 Date of Discharge: [...] Case IDs Date Procedure Surgeon Location Status [id number] 10/10/24 EGD Lino Soto MD ENDOSCOPY Comp [id number] 10/14/24 Left Heart Cath Irving Matta MD [...] at 10/08/2024 1:12 PM EDT US Duplex Exx-Piq-Gicurhs Comp Final Result IMPRESSION: ABDOMEN 1. Cirrhotic [...] 90 tablet Refills: 0 naloxone 4 mg/actuation [place] Commonly known as: NARCAN Apply 1 spray [...] These medications were sent to [facility] [address] Hours: Sunday - Sunday: 8:00AM - 6:00PM FLUoxetine 20 MG capsule lactulose 10 gram/15 mL solution loratadine 10 mg tablet methocarbamoL 500 MG tablet midodrine 10 MG tablet naloxone 4 mg/actuation [place] oxyCODONE 5 MG immediate release tablet Discharge [...] [M54.2, Z98.890] 10/07/2024 SBP (spontaneous bacterial peritonitis) ([facility]) [K65.2] 09/08/2024 Anemia [D64.9] 09/05/2024 Metabolic [...] Order Questions: Select Supplement: Boost-1 kcal/ml supplement ([facility] only) As listed above, low sodium [...] AM EDT 10/17/2024 naloxone (NARCAN) 4 mg/actuation [place] Apply 1 spray in one nostril if [...] [facility] HEPATOLOGY PROGRESS NOTE Name: Julien Gilbert CSN: [id number] Consulted by: Chelsy Lerner MD Reason for [...] Yes Past Week naloxone (NARCAN) 4 mg/actuation [place] Apply 1 spray in one nostril if [...] nucleated cells, <2000 RBCs 10% Polynuclear, 90% [place] nuc. There were initial reports of gram [...] Sidhu. Recommendations are final following attestation JERAD HUGEHS MD PGY-5 10/17/2024, 10:23 AM [1] Allergies [...] of chemical dependency treatment as outpatient. - [facility] with no obstructive coronary disease - Psych eval for PTSD With recommendation of sertraline - Given his renal dysfunction, will plan to list for [facility] when he qualifies on 10/22/2024. Labs next week - Plan for d/c today Bobby Sidhu MD Transplant Dsp Engineer Please see the body of the [...] remains <30 until October 22. Waiting for [facility] today. ASSESSMENT NADIYA on CKD, last discharge [...] Staff. Jeremiah Gamino PGY4 Nephrology. Pager no. [phone] Chief Complaint No chief complaint on file. [...] hyperlipidemia (07/26/2024), Renal cell carcinoma (CMS-HCC), Thrombocytopenia ([facility]), and Thyroid disease. he has a [...] at 10/08/2024 1:12 PM EDT US Duplex Yvh-Uaw-Vtjuhov Comp Final Result IMPRESSION: ABDOMEN 1. Cirrhotic [...] no head imaging has been performed at [facility]. -CT Head w/o contrast -Imaging showed [...] Order Questions: Select Supplement: Boost-1 kcal/ml supplement ([facility] only) Code Status: Full Code Signed: [...] another specialty or practice, other licensed professional (PT/OT/MEDICAL TECHNICIANS/RT), or a non-medical community professional: Hepatology, Interventional [...] due to positioning during LHC on 10/14. Bock the worst in CVR, but has improved [...] Kumar RD - 10/16/2024 1:08 PM EDT [place] [...] nucleated cells, <2000 RBCs 10% Polynuclear, 90% [place] nuc. There were initial reports of gram [...] Based on CBW of 119.5 kg Kcals/day: 2115-7915 (18-21 kcals/kg) Protein g/day: 119-143 (1-1.2 g/kg) [...] Kumar RD, LD Clinical Dietitian Contact via [email or web address] * Jerad Hughes MD - 10/16/2024 11:03 AM EDT [facility] PROGRESS NOTE Name: Julien Gilbert CSN: [id number] Consulted by: Chelsy Lerner MD Reason for [...] nucleated cells, <2000 RBCs 10% Polynuclear, 90% [place] nuc. There were initial reports of gram [...] of chemical dependency treatment as outpatient. - [facility] with no obstructive coronary disease - Psych eval for PTSD With recommendation of sertraline - Given his renal dysfunction, will plan to list for [facility] when he qualifies on 10/22/2024. - Will follow Bobby Sidhu MD Transplant Dsp Engineer Please see the body of the [...] remains <30 until October 22. Waiting for [facility] today. ASSESSMENT NADIYA on CKD, last discharge [...] COMMENT on 10/08/2024 Iron%- Iron replete PLAN -[facility] yesterday- patient remains at risk of contrast related injury on top of exisiting NADIYA for 24-48 hrs after contrast load. -He is volume overloaded -patient needs to follow up closely with nephrology after discharge Thank you for allowing us to participate in this patient's care. Discussed with Consult Staff. Jeremiah Gamino PGY4 Nephrology. Pager no. [phone] Chief Complaint No chief complaint on file. [...] at 10/08/2024 1:12 PM EDT US Duplex Jdw-Ryh-Drebfzb Comp Final Result IMPRESSION: ABDOMEN 1. Cirrhotic [...] not tolerate Stress ECHO on 10/09 - [facility] today -Per GI recs, started on midodrine [...] no head imaging has been performed at [facility]. -CT Head w/o contrast -Imaging showed [...] Order Questions: Select Supplement: Boost-1 kcal/ml supplement ([facility] only) Code Status: Full Code Signed: [...] another specialty or practice, other licensed professional (PT/OT/MEDICAL TECHNICIANS/RT), or a non-medical community professional: Hepatology, Interventional [...] due to positioning during LHC on 10/14. Bock the worst in CVR, but has improved [...] [facility] PROGRESS NOTE Name: Julien Gilbert CSN: [id number] Consulted by: Chelsy Lerner MD Reason for [...] nucleated cells, <2000 RBCs 10% Polynuclear, 90% [place] nuc. There were initial reports of gram [...] of chemical dependency treatment as outpatient. - [facility] yesterday with no obstructive coronary disease - Psych eval for PTSD and medical management - Given his renal dysfunction, will plan to list for [facility] when he qualifies on 10/22/2024. - Will follow Bobby Sidhu MD Transplant Dsp Engineer Please see the body of the [...] remains <30 until October 22. Waiting for [facility] today. ASSESSMENT NADIYA on CKD, last discharge creatinine 2.4 Baseline Creatinine 1.2-1.3, HRS- NADIYA as no response to holding lasix and albumin UA bland Urine lytes <10/< 15/ 50 Holding lasix give [facility] today Renal Function: Recent Labs 10/14/24 0253 [...] Staff. Jeremiah Gamino PGY4 Nephrology. Pager no. [phone] Chief Complaint No chief complaint on file. [...] at 10/08/2024 1:12 PM EDT US Duplex Hbq-Lon-Horuipf Comp Final Result IMPRESSION: ABDOMEN 1. Cirrhotic [...] not tolerate Stress ECHO on 10/09 - [facility] today -Per GI recs, started on midodrine [...] no head imaging has been performed at [facility]. -CT Head w/o contrast -Imaging showed [...] never required dialysis. Patient is going for [facility] today and will receive contrast, okay per [...] Order Questions: Select Supplement: Boost-1 kcal/ml supplement ([facility] only) Code Status: Full Code Signed: [...] another specialty or practice, other licensed professional (PT/OT/[employer] TECHNICIANS/RT), or a non-medical community professional: Hepatology, Interventional [...] [facility] PROGRESS NOTE Name: Julien Gilbert CSN: [id number] Consulted by: Chelsy Lerner MD Reason for [...] nucleated cells, <2000 RBCs 10% Polynuclear, 90% [place] nuc. There were initial reports of gram [...] eval ongoing. Transplant work up ongoing - [facility] today - Transplant nephrology following for consideration [...] - Will follow Bobby Sidhu MD Transplant Dsp Engineer Please see the body of the [...] Staff. Jeremiah Gamino PGY4 Nephrology. Pager no. [phone] Chief Complaint No chief complaint on file. [...] [facility] PROGRESS NOTE Name: Julien Gilbert CSN: [id number] Consulted by: Fouzia Rene MD Reason for [...] nucleated cells, <2000 RBCs 10% Polynuclear, 90% [place] nuc. There were initial reports of gram [...] eval ongoing. Transplant work up ongoing - [facility] today - Transplant nephrology following for consideration [...] - Will follow Bobby Sidhu MD Transplant Dsp Engineer Please see the body of the [...] Fabian RD - 10/13/2024 10:49 AM EDT [place] [...] Order Questions: Select Supplement: Boost-1 kcal/ml supplement ([facility] only) Pertinent Information: Julien Gilbert is a 39 y.o. Male admitted for Acute kidney injury superimposedon CKD ([facility]) Pt noted to have waxing and [...] kg) Body mass index is 32.07 kg/m??. [place] Body Weight: 202 lbs (91.8 kg) +/- 10% Weight History: Wt Readings from Last 10 Encounters: 10/10/24 (!) 263 lb 8 oz (119.5 kg) 09/05/24 (!) 262 lb 9.6 oz (119.1 kg) 09/02/24 (!) 258 lb (117 kg) 08/17/24 (!) 242 lb 11.2 oz (110.1 kg) 07/28/24 (!) 245 lb (111.1 kg) Estimated Nutrition Needs: Based on CBW of 119.5 kg Kcals/day: 2962-7892 (18-21 kcals/kg) Protein g/day: 119-143 (1-1-2 g/kg) [...] Dietitian - Solid Organ Transplant Contact via [employer] Chat * Eileen Schroeder MD, PhD - 10/13/2024 8:19 AM EDT Department of Internal Medicine Daily Progress Note Chief Complaint / Reason for Follow-Up Julien Gilbert is a 39 y.o. male on hospital day 8. The principal reason for today's follow up visit is Acute kidney injury superimposed on CKD ([facility]). NAEON Pt felt well this AM. [...] at 10/08/2024 1:12 PM EDT US Duplex Xms-Vqr-Hmyjrrw Comp Final Result IMPRESSION: ABDOMEN 1. Cirrhotic [...] no head imaging has been performed at [facility]. -CT Head w/o contrast -Imaging showed [...] Order Questions: Select Supplement: Boost-1 kcal/ml supplement ([facility] only) Code Status: Full Code Signed: [...] I reviewed the documentation by the medical human resources team member and agree as documented. Any [...] was non-diagnostic due to hypotension. Plan for [facility] today, but now moved to tomorrow. - [...] another specialty or practice, other licensed professional (PT/OT/MEDICAL TECHNICIANS/RT), or a non-medical community professional: Nephrology, Hepatology [...] at 10/08/2024 1:12 PM EDT US Duplex Ewn-Yhy-Zquraai Comp Final Result IMPRESSION: ABDOMEN 1. Cirrhotic [...] no head imaging has been performed at [facility]. -CT Head w/o contrast -Imaging showed [...] Order Questions: Select Supplement: Boost-1 kcal/ml supplement ([facility] only) Code Status: Full Code Signed: CHARI VANEGAS MD 10/12/2024, 12:49 PM Cosigned by Fouzia Rene MD at 10/12/2024 4:52 PM EDT Associated attestation - Fouzai Rene MD - 10/12/2024 4:52 PM EDT [...] I reviewed the documentation by the medical human resources team member and agree as documented. Any additions or clarifications are listed below. Daily plan was discussed with patient at bedside and questions addressed. Patient ID: Julien Gilbert is a 39 y.o. male currently admitted for Acute kidney injury superimposed on CKD ([facility]) Supplemental History/ ROS: No acute events [...] for Acute kidney injury superimposed on CKD ([facility]) Active Problems: NADIYA (acute kidney injury) on CKD ([facility]): Hepatorenal syndrome. Appreciate nephrology consult. S/p [...] Continue home lactulose and rifaximin Decompensated cirrhosis ([facility]): Appreciate hepatology consult. He has started [...] another specialty or practice, other licensed professional (PT/OT/MEDICAL TECHNICIANS/RT), or a non-medical community professional: Nephrology, Hepatology [...] tid. cardiac workup pre txp. pLan for [facility] Sunday Liver transplant workup per GI/ Primary [...] hepatorenal syndrome.` Patient came from [facility], paracentesis was performed yesterday on 10/05? Fluid [...] 706.9 (H) 10/08/2024 No results found for: [id number] , FOLATE Lab Results Component Value Date [...] CRUR No results found for: MICROALBUR , [id number] In addition to the above an extensive [...] 4.6 10/12/2024 Lab Results Component Value Date MQOA60K 7.1 (L) 10/08/2024 PLAN Monitor renal panel [...] AM Colten Huertas MD, KISHOR LIN, FNKF options trader Div. of Nephrology [facility] E-mail: [email or web address] This note was completely [...] Rene MD Interval hx No issues. Pending [facility]. Assessment: Renal Function: Cr: 2.77 Bun: 49 [...] hepatorenal syndrome.` Patient came from [facility], paracentesis was performed yesterday on 10/05? Fluid [...] 706.9 (H) 10/08/2024 No results found for: [id number] , FOLATE Lab Results Component Value Date [...] CRUR No results found for: MICROALBUR , [id number] In addition to the above an extensive [...] 3.5 10/11/2024 Lab Results Component Value Date TOKY58U 7.1 (L) 10/08/2024 PLAN Monitor renal panel [...] AM Colten Huertas MD, KISHOR LIN, CATHYF options trader Div. of Nephrology [facility] E-mail: [email or web address] This note was completely [...] at 10/08/2024 1:12 PM EDT US Duplex Wga-Rul-Olzvlgl Comp Final Result IMPRESSION: ABDOMEN 1. Cirrhotic [...] from outside facility. Will engage with them daily([phone]. Ask to speak to a tech) about [...] no head imaging has been performed at [facility]. -CT Head w/o contrast -Imaging showed [...] Order Questions: Select Supplement: Boost-1 kcal/ml supplement ([facility] only) Code Status: Full Code Signed: [...] I reviewed the documentation by the medical human resources team member and agree as documented. Any [...] another specialty or practice, other licensed professional (PT/OT/MEDICAL TECHNICIANS/RT), or a non-medical community professional: Nephrology, Hepatology, [...] Strictly monitor urine output No Indication for CREDIT COLLECTIONS ANALYST 3. Not a candidate for terlipressin [...] Ignacio Queen MD Renal Fellow Pager # [phone] Chief Complaint No chief complaint on file. [...] hepatorenal syndrome.` Patient came from [facility], paracentesis was performed yesterday on 10/05? Fluid [...] PHOS -- < > 3.5 3.4 3.3 RKSO60S 7.1* -- -- -- -- < > = values in this interval not displayed. Lab Results Component Value Date IRON 81 10/08/2024 TIBC SEE COMMENT 10/08/2024 FERRITIN 706.9 (H) 10/08/2024 No results found for: [id number] , FOLATE Lab Results Component Value Date [...] CRUR No results found for: MICROALBUR , [id number] In addition to the above an extensive [...] 3.3 10/10/2024 Lab Results Component Value Date [id number] 7.1 (L) 10/08/2024 PLAN Continue IV albumin [...] AM Colten Huertas MD, DELIA, KISHOR, FNKF options trader Div. of Nephrology [facility] E-mail: [email or web address] This note was completely [...] to follow pt while pt is at [facility]. * Jodi Ortiz PharmD - 10/10/2024 10:27 AM EDT Clinical Pharmacy Service: Vancomycin Consult Progress Note Patient has been transitioned off of vancomycin therapy per team notes and orders. Pharmacy will sign-off at this time, please do not hesitate to consult again as needs arise. Thank you for involving pharmacy in the care of this patient. Jodi Ortiz PharmD Clinical Order Desk Caller, Internal Medicine Preferred contact: [employer] Chat Clinical Ciuxyzq-Qp-Rtjz Pager: [phone] October 10, 2024 10:27 AM Laboratory Data [...] 10/07/2024 10:50 PM Giardia Cryptosporidium Antigens Final [id number] 10/07/2024 10:50 PM Ova and Parasite Comprehensive w/ Giardia/Crypto Final [id number] Feces 10/06/2024 1:04 AM #2 Blood culture-Peripheral site 2 Preliminary [id number] Peripheral 10/06/2024 1:04 AM #1 Blood culture-Peripheral site 1 Preliminary [id number] Peripheral Pharmacokinetics Lab Results (Last 7 days) Today 0523 Yesterday 04510/08 0536 [facility] Rdm 16.4 11.0 16.0 * Gerri Peterson MD - 10/10/2024 10:09 AM EDT [facility] PROGRESS NOTE Name: Julien Gilbert CSN: [id number] Consulted by: Fouzia Rene MD Reason for [...] nucleated cells, <2000 RBCs 10% Polynuclear, 90% [place] nuc. Per OSH reports, ascitic fluid cultures [...] to achieving target HR. -cardiology consult for [facility] on Sunday - Transplant nephrology following for [...] from the original note were not included. [facility] Clinical Pharmacy Service: Vancomycin [...] in sodium chloride 0.9 % 250 mL Qmux6Pco (Completed) 1,500 mg Once 10/09/2024 10/09/2024 Admin Instructions: Contact pharmacy if there is a question/concern of whether vancomycin should begiven based on serum drug levels. Use Jhry0Jbx Adapter - Mix Thoroughly Before Administration Route: Intravenous vancomycin (VANCOCIN) 1,500 mg in sodium chloride 0.9 % 250 mL Ytzl9Mcf 1,500 mg Once 10/10/2024 10/11/2024 Admin Instructions: Contact pharmacy if there is a question/concern of whether vancomycin should begiven based on serum drug levels. Use Dlte1Mhf Adapter - Mix Thoroughly Before Administration Route: [...] in sodium chloride 0.9 % 250 mL Ugji1Bfe 1,500 mg 166.7 mL/hr 10/08/24 1259 New Bag vancomycin (VANCOCIN) 1,000 mg in sodium chloride 0.9 % 250 mL Hecl2Bdm 1,000 mg 250 mL/hr --Objective Data-- Vitals: [...] 53 53 54 Creatinine 2.85 2.89 3.04 [place] body weight: 86.8 kg (191 lb 5.7 oz) Adjusted ideal body weight: 99.9 kg (220 lb 3.5 oz) Estimated CrCl: ~35-45 mL/min --Cultures-- Microbiology Results Date and Time Order Name Sensitivity Status Organisms Specimen ID Source 10/07/2024 10:50 PM Giardia Cryptosporidium Antigens Final [id number] 10/07/2024 10:50 PM Ova and Parasite Comprehensive w/ Giardia/Crypto Final [id number] Feces 10/06/2024 1:04 AM #2 Blood culture-Peripheral site 2 Preliminary [id number] Peripheral 10/06/2024 1:04 AM #1 Blood culture-Peripheral site 1 Preliminary [id number] Peripheral --Vancomycin Concentrations-- Lab Results (Last 7 [...] for the consult. Jodi Ortiz PharmD Clinical Order Desk Caller, Internal Medicine Preferred contact: [employer] Clinical Peotytj-Gl-Pjfo Pager: [phone] October 10, 2024 9:13 AM * Eileen Schroeder MD, PhD - 10/10/2024 8:17 AM EDT Department of Internal Medicine Daily Progress Note Chief Complaint / Reason for Follow-Up Julien Gilbert is a 39 y.o. male on hospital day 5. The principal reason for today's follow up visit is Acute kidney injury superimposed on CKD ([facility]). KARENYeniMERLINE Pt was very conversational today. [...] at 10/08/2024 1:12 PM EDT US Duplex Sur-Ffr-Qxwdcbe Comp Final Result IMPRESSION: ABDOMEN 1. Cirrhotic [...] from outside facility. Will engage with them daily([phone]. Ask to speak to a tech) about [...] no head imaging has been performed at [facility]. -CT Head w/o contrast -Imaging showed [...] Order Questions: Select Supplement: Boost-1 kcal/ml supplement ([facility] only) Code Status: Full Code Signed: [...] I reviewed the documentation by the medical human resources team member and agree as documented. Any additions or clarifications are listed below. Daily plan was discussed with patient at bedside and questions addressed. Patient ID: Julien Gilbert is a 39 y.o. male currently admitted for Acute kidney injury superimposed on CKD ([facility]) Supplemental History/ ROS: No acute events [...] for Acute kidney injury superimposed on CKD ([facility]) Active Problems: Spontaneous Bacterial Peritonitis ([facility]): Cultures from OSH were reported as [...] Continue home lactulose and rifaximin Decompensated cirrhosis ([facility]): Appreciate hepatology consult. He has started [...] IR. NADIYA (acute kidney injury) on CKD ([facility]): Appreciate nephrology consult. Likely due to [...] another specialty or practice, other licensed professional (PT/OT/MEDICAL TECHNICIANS/RT), or a non-medical community professional: Nephrology, Hepatology, [...] Strictly monitor urine output No Indication for CREDIT COLLECTIONS ANALYST Not a candidate for terlipressin per liver due to HE, liver and kidney failure, on midodrine tid. Considering para today, cardiac workup pre txp Liver transplant workup per GI/ Primary team, considering for [facility], seen by renal transplant team Thank you for allowing us to participate in this patient's care. Discussed with Consult Staff. Ignacio Queen MD Renal Fellow Pager # [phone] Chief Complaint No chief complaint on file. [...] hepatorenal syndrome.` Patient came from [facility], paracentesis was performed yesterday on 10/05? Fluid [...] 9.0 9.3 PHOS -- 3.5 3.5 3.4 XDWQ56T 7.1* -- -- -- Lab Results Component Value Date IRON 81 10/08/2024 TIBC SEE COMMENT 10/08/2024 FERRITIN 706.9 (H) 10/08/2024 No results found for: [id number] , FOLATE Lab Results Component Value Date [...] CRUR No results found for: MICROALBUR , [id number] In addition to the above an extensive [...] 3.4 10/09/2024 Lab Results Component Value Date UHFS03D 7.1 (L) 10/08/2024 PLAN Continue IV albumin [...] PM Colten Huertas MD, KISHOR LIN, CATHYF options trader Div. of Nephrology [facility] E-mail: [email or web address] This note was completely [...] [facility] PROGRESS NOTE Name: Julien Gilbert CSN: [id number] Consulted by: Fouzia Rene MD Reason for [...] nucleated cells, <2000 RBCs 10% Polynuclear, 90% [place] nuc. Fluid cultures reportedly grew gram + [...] from the original note were not included. [facility] Clinical Pharmacy Service: Vancomycin [...] in sodium chloride 0.9 % 250 mL Upxn8Lni (Completed) 1,000 mg Once 10/08/2024 10/08/2024 Admin Instructions: Contact pharmacy if there is a question/concern of whether vancomycin should begiven based on serum drug levels. Use Xnrz6Lzy Adapter - Mix Thoroughly Before Administration Route: Intravenous vancomycin (VANCOCIN) 1,500 mg in sodium chloride 0.9 % 250 mL Buvx0Jlg 1,500 mg Once 10/09/2024 10/10/2024 Admin Instructions: Contact pharmacy if there is a question/concern of whether vancomycin should begiven based on serum drug levels. Use Gmah8Atb Adapter - Mix Thoroughly Before Administration Route: [...] in sodium chloride 0.9 % 250 mL Zhbe2Iop 1,000 mg 250 mL/hr 10/06/24 1413 New [...] 10/07/2024 10:50 PM Giardia Cryptosporidium Antigens Final [id number] 10/07/2024 10:50 PM Ova and Parasite Comprehensive w/ Giardia/Crypto Final [id number] Feces 10/06/2024 1:04 AM #2 Blood culture-Peripheral site 2 Preliminary [id number] Peripheral 10/06/2024 1:04 AM #1 Blood culture-Peripheral site 1 Preliminary [id number] Peripheral --Vancomycin Concentrations-- Lab Results (Last 7 [...] for the consult. Jodi Ortiz PharmD Clinical Order Desk Caller, Internal Medicine Preferred contact: [facility] Gaehbym-Hj-Uzub Pager: [phone] October 09, 2024 8:29 AM * Eileen Schroeder MD, PhD - 10/09/2024 8:00 AM EDT Department of Internal Medicine Daily Progress Note Chief Complaint / Reason for Follow-Up Julien Gilbert is a 39 y.o. male on hospital day 4. The principal reason for today's follow up visit is Acute kidney injury superimposed on CKD ([facility]). DREW and father at bedside Pt [...] at 10/08/2024 1:12 PM EDT US Duplex Daz-Pcm-Cipryqe Comp Final Result IMPRESSION: ABDOMEN 1. Cirrhotic [...] from outside facility. Will engage with them daily([phone]. Ask to speak to a tech) about [...] no head imaging has been performed at [facility]. -CT Head w/o contrast -Imaging showed [...] Order Questions: Select Supplement: Boost-1 kcal/ml supplement ([facility] only) Code Status: Full Code Signed: [...] I reviewed the documentation by the medical human resources team member and agree as documented. Any additions or clarifications are listed below. Daily plan was discussed with patient at bedside and questions addressed. Patient ID: Julien Gilbert is a 39 y.o. male currently admitted for Acute kidney injury superimposed on CKD ([facility]) Supplemental History/ ROS: No acute events [...] for Acute kidney injury superimposed on CKD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 4, GFR 15-29 ml/min ([facility]) Metabolic acidosis [...] NAGMA related to diarrhea No Indication for CREDIT COLLECTIONS ANALYST Liver transplant workup per GI/ Primary team Thank you for allowing us to participate in this patient's care. Discussed with Consult Staff. Ignacio Queen MD Renal Fellow Pager # [phone] Chief Complaint No chief complaint on file. [...] hepatorenal syndrome.` Patient came from [facility], paracentesis was performed yesterday on 10/05? Fluid [...] TIBC , FERRITIN No results found for: [id number] , FOLATE Lab Results Component Value Date [...] CRUR No results found for: MICROALBUR , [id number] In addition to the above an extensive [...] 5.3 (H) 10/06/2024 No results found for: [id number] PLAN Patient seen labs reviewed Unclear baseline serum creat Recent episode of acute kidney injury requiring hospitalization Now has [id number] episode of NADIYA Underwent paracentesis 3 days [...] team Colten Huertas MD, KISHOR LIN FNKF options trader Div. of Nephrology [facility] E-mail: [email or web address] * Jerad Hughes MD - 10/06/2024 9:28 AM EDTAssociated Order(s): IP CONSULT TO [facility] HEPATOLOGY CONSULT NOTE Name: Julien Gilbert CSN: [id number] Consulted by: Angie Blanchard MD Reason for Consult: Decompensated Cirrhosis History of Present Illness: Julien Gilbert is a 39 y.o. with history of decompensated EtOH cirrhosis (complicated by EV, HRS, ascites, HE), HTN, and CKD. Patient admitted as transfer from [facility] ED with confusion and lethargy. Diagnostic [...] to diarrhea. Patient was recently referred to [facility] for liver transplant evaluation. Patient was evaluated by transplant social work job titles on 09/25/2024 and it was determined that [...] 2:20 PM EDT Pt returned from lab director status post [facility]. Bedside report received from lab director, RN. Pt placed on telemetry, serial vital signs set up. Access site: RRA. Site is soft, no bleeding/hematoma, [address] Sheath removed in lab director at 1402, TR band placed to site [...] EDT Pt arrived with and admitted into [facility] from [facility] with AMS. Walkertamikat paged to the bedside at this time. [...] Patient will remain free of falls Goal: [place] Fall Precautions Outcome: Progressing Problem: Daily Care Goal: Daily care needs are met Description: Assess and monitor ability to perform self care and identify potential discharge needs. Outcome: Progressing * Care Coordination - Kandy Fuentes - 10/16/2024 11:33 AM EDT [facility] Case Management/Social Work Department [...] disease. PCP: Enedina Mcguire NP Home Pharmacy: [facility] [address] [place] [address], [facility] [address] [address] [facility] [address] [facility] [id number] Medical Insurance Coverage: Payor: [employer] / Plan: [facility] / Product Type: *No Producttype* / Other Pertinent Information RN/CM received update from team and completed chart review. Pt is not medically ready for discharge. Nephrology to see today. Here for pre-transplant work up. Discharge Plan Anticipated discharge plan: home Anticipated discharge date: 10/17/24 CM/SW will continue to follow and remain available for discharge planning needs. Kandy [facility]AE [facility] * Plan of Care - Anu Wolff [...] Patient will remain free of falls Goal: [place] Fall Precautions Outcome: Progressing Problem: Daily Care [...] Patient will remain free of falls Goal: [place] Fall Precautions Outcome: Progressing Problem: Daily Care [...] Kandy Fuentes - 10/15/2024 2:26 PM EDT [facility] Case Management/Social Work Department Progress Note Patient Information Patient Name: Julien Gilbert Hospital day: 10 Inpatient/Observation: Inpatient Level of Care: blue Admit date: 10/05/2024 Admission diagnosis: AMS PMH: has a past medical history of Alcoholic cirrhosis of liver ([facility]), Esophageal varices ([facility]), Hepatorenal syndrome ([facility]), Hypertension, Other hyperlipidemia (07/26/2024), Renal cell carcinoma ([facility]), Thrombocytopenia ([facility]), and Thyroid disease. PCP: Enedina Mcguire NP Home Pharmacy: [facility] [place], [facility] [address] [address] [facility] [address] [facility] [id number] Medical Insurance Coverage: Payor: [facility] / Plan: [facility] / Product Type: *No Producttype* / Other Pertinent Information RN/CM received update from team and completed chart review. Pt is not medically ready for discharge. Nephrology following. Watching creatinine levels. Had left heart cath yesterday. Discharge Plan Anticipated discharge plan: home Anticipated discharge date: 10/16/24 CM/SW will continue to follow and remain available for discharge planning needs. Kandy [facility]AE [facility] * Plan of Care - Anu Wolff [...] Patient will remain free of falls Goal: [place] Fall Precautions Outcome: Progressing Problem: Daily Care [...] Kandy Fuentes - 10/14/2024 11:10 AM EDT [facility] Case Management/Social Work Department Progress Note Patient Information Patient Name: Julien Gilbert Hospital day: 9 Inpatient/Observation: Inpatient Level of Care: blue Admit date: 10/05/2024 Admission diagnosis: AMS PMH: has a past medical history of Alcoholic cirrhosis of liver (CMS-HCC), Esophageal varices ([facility]), Hepatorenal syndrome (CMS-HCC), Hypertension, Other hyperlipidemia (07/26/2024), Renal cell carcinoma (CMS-HCC), Thrombocytopenia ([facility]), and Thyroid disease. PCP: Enedina Mcguire NP Home Pharmacy: [facility] [address] [place] [address] [facility] [address] [facility] [id number] Medical Insurance Coverage: Payor: [facility] / Plan: [facility] / Product Type: *No [...] Kandy Fuentes - 10/13/2024 11:53 AM EDT [facility] Case Management/Social Work Department Progress Note Patient Information Patient Name: Julien Gilbert Hospital day: 8 Inpatient/Observation: Inpatient Level of Care: blue Admit date: 10/05/2024 Admission diagnosis: AMS PMH: has a past medical history of Alcoholic cirrhosis of liver (CMS-HCC), Alcoholic hepatitis, Esophageal varices (CMS-HCC), Hepatorenal syndrome (CMS- HCC), Hypertension, Other hyperlipidemia (07/26/2024), Renal cell carcinoma ([facility]), Thrombocytopenia ([facility]), and Thyroid disease. PCP: Enedina Mcguire NP Home Pharmacy: [facility] [address] [place] [address], [facility] [address] [address] [facility] [address] [facility] [address] Medical Insurance Coverage: Payor: [facility] / Plan: [facility] / Product Type: *No Producttype* / Other Pertinent Information RN/CM received update from team and completed chart review. Pt is not medically ready for discharge. Patient is going to have left heart cath today. Discharge Plan Anticipated discharge plan: home Anticipated discharge date: 10/14/24 CM/SW will continue to follow and remain available for discharge planning needs. Kandy [facility]AE [facility] * Plan of Care - Gerda Guerra [...] Kandy Fuentes - 10/10/2024 12:00 PM EDT [facility] Case Management/Social Work Department [...] disease. PCP: Enedina Mcguire NP Home Pharmacy: [facility] [address] [place] [address] [facility] [address] [facility] [address] Medical Insurance Coverage: Payor: [employer] / Plan: [facility] / Product Type: *No [...] Patient will remain free of falls Goal: [place] Fall Precautions Outcome: Progressing Problem: Daily Care [...] Patient will remain free of falls Goal: [place] Fall Precautions Outcome: Progressing Problem: Daily Care [...] Kandy Fuentes - 10/09/2024 12:05 PM EDT [facility] Case Management/Social Work Department [...] disease. PCP: Enedina Mcguire NP Home Pharmacy: [facility] [address] [place] [facility] [address] [address] [facility] [address] [facility] [id number] Medical Insurance Coverage: Payor: [facility] / Plan: [facility] / Product Type: *No [...] Kandy Fuentes - 10/08/2024 3:41 PM EDT [facility] Case Management/Social Work Department Progress Note Patient Information Patient Name: Julien Gilbert Hospital day: 3 Inpatient/Observation: Inpatient Level of Care: blue Admit date: 10/05/2024 Admission diagnosis: AMS PMH: has a past medical history of Alcoholic cirrhosis of liver (CMS-HCC), Alcoholic hepatitis, Esophageal varices (CMS-HCC), Hepatorenal syndrome (CMS- HCC), Hypertension, Other hyperlipidemia (07/26/2024), Renal cell carcinoma (CMS-HCC), Thrombocytopenia ([facility]), and Thyroid disease. PCP: Enedina Mcguire NP Home Pharmacy: [facility] [address] [place] [address] [facility] [address] [facility] [address] Medical Insurance Coverage: Payor: [facility] / Plan: [facility] / Product Type: *No [...] Kandy Fuentes - 10/07/2024 3:22 PM EDT [facility] Case Management/Social Work Department Progress Note Patient Information Patient Name: Julien Gilbert Hospital day: 2 Inpatient/Observation: Inpatient Level of Care: blue Admit date: 10/05/2024 Admission diagnosis: AMS PMH: has a past medical history of Alcoholic cirrhosis of liver (CMS-HCC), Alcoholic hepatitis, Esophageal varices (CMS-HCC), Hepatorenal syndrome (CMS- HCC), Hypertension, Other hyperlipidemia (07/26/2024), Renal cell carcinoma (CMS-HCC), Thrombocytopenia ([facility]), and Thyroid disease. PCP: Enedina Mcguire NP Home Pharmacy: [facility] [address] [place] [address] [facility] [address] [facility] [id number] Medical Insurance Coverage: Payor: [facility] / Plan: [facility] / Product Type: *No [...] Fall Risk Precautions 10/07/2024 1111 by Jodi Meneezs RN Outcome: [...] Patient will remain free of falls Goal: [place] Fall Precautions Outcome: Progressing Problem: Daily Care [...] Description 12/05/2024 8:01 AM EDT Hospital Encounter [facility] ENDOSCOPY [address] [place] [address] Chris Orosco MD [address] [place] [phone] 12/05/2024 8:01 AM EDT - 12/05/2024 8:31 AM EDT Surgery [facility] ENDOSCOPY [address] [place] [address] Chris Orosco MD [address] [place] [phone] EGD Scheduled Procedures Name Priority Associated Diagnoses Date/Ti me EGD Cirrhosis of liver with ascites, unspecified hepatic cirrhosis type ([facility]) 12/05/2024 8:01 AM EDT documented as [...] IGG ANTIBODY Routine 10/07/2024 6:37 PM EDT [id number] (AAT) QUANTITATION & MUTATION Routine 10/07/2024 6:37 [...] Routine 10/07/2024 6:19 PM EDT US DUPLEX [id number] COMPLETE Routine 10/07/2024 3:48 PM EDT US [...] 10/06/2024 4:01 AM EDT UPPER RESPIRATORY VIRAL/BACTERIAL PANEL-MOCK UP MAKER ONLY Routine 10/06/2024 3:12 AM EDT XR [...] - 146 mmol/L 10/17/2024 7:02 AM T [facility] Potassium 3.4(L) 3.5 - 5.3 mmol/L 10/17/2024 7:02 AM [facility] Chloride 104 98 - 110 mmol/L 10/17/2024 7:02 AM EDT [facility] CO2 18(L) 21 - 33 mmol/L 10/17/2024 7:02 AM [facility] Anion Gap 11 3 - 16 mmol/L 10/17/2024 7:02 AM [facility] BUN 54(H) 7 - 25 mg/dL 10/17/2024 7:02 AM [facility] Creatinine 2.88(H) 0.60 - 1.30 mg/dL 10/17/2024 7:02 AM [facility] Glucose 127(H) 70 - 100 mg/dL 10/17/2024 7:02 AM [facility] Calcium 8.2(L) 8.6 - 10.3 mg/dL 10/17/2024 7:02 AM [facility] Phosphorus 4.5 2.1 - 4.7 mg/dL 10/17/2024 7:02 AM [facility] Albumin 3.1(L) 3.5 - 5.7 g/dL 10/17/2024 7:02 AM [facility] Osmolality, Calculated 292 278 - 305 mOsm/kg 10/17/2024 7:02 AM [facility] EGFR 27 10/17/2024 7:02 AM [facility] Comment:As of 2021, the estimated [...] M, Olivia DC, Emerita [place], Madelyn [place], Gelatin Dynamite Packing Operator [place], et al. A Unifying Approach for GFR Estimation: Recommendations of the NKF-ASN Task Force on Reassessing the inclusion of Race in Diagnosing Kidney Disease. Am J Kidney Dis. 2020. Plasma 10/17/2024 5:48 AM EDT 10/17/2024 6:32 AM EDT Eileen Schroeder MD, PhD LAB BLOOD ORDERABLES Final Result Performing Organization Address [facility] de Phone Number [facility] [address] [facility]. [address] * (ABNORMAL) Protime-INR (10/16/2024 6:31 AM EDT) Protime 22.5(H) 12.1 - 15.1 seconds 10/16/2024 8:04 AM EDT [facility] INR 1.9(H) 0.9 - 1.1 10/16/2024 8:04 AM EDT [facility] Comment: RECOMMENDED THERAPEUTIC RANGES USING INR : Stable oral anticoagulant therapy: 2.0 - 3.0 Mechanical prosthetic heart valve: 2.5 - 3.5 Recurrent acute myocardial infarction: 2.5 - 3.5 Plasma 10/16/2024 6:31 AM EDT 10/16/2024 6:56 AM EDT Eileen Schroeder MD, PhD LAB BLOOD ORDERABLES Final Result Performing Organization Address [facility] de Phone Number [facility] [address] [facility]. [address] * (ABNORMAL) Hepatic Function Panel (10/16/2024 6:31 AM EDT) Total Bilirubin 7.6(H) 0.0 - 1.5 mg/dL 10/16/2024 7:24 AM EDT [facility] Bilirubin, Direct 3.97(H) 0.00 - 0.40 mg/dL 10/16/2024 7:24 AM EDT [facility] AST 45(H) 13 - 39 U/L 10/16/2024 7:24 AM EDT [facility] ALT 23 7 - 52 U/L 10/16/2024 7:24 AM EDT [facility] Alkaline Phosphatase 137(H) 36 - 125 U/L 10/16/2024 7:24 AM EDT [facility] Total Protein 5.1(L) 6.4 - 8.9 g/dL 10/16/2024 7:24 AM EDT [facility] Albumin 3.4(L) 3.5 - 5.7 g/dL 10/16/2024 7:24 AM EDT [facility] Bilirubin, Indirect 3.63(H) 0.00 - 1.10 mg/dL 10/16/2024 7:24 AM EDT [facility] Plasma 10/16/2024 6:31 AM EDT 10/16/2024 6:56 AM EDT us Eileen Schroeder MD, PhD LAB BLOOD ORDERABLES Final Result Performing Organization Address [facility]/ZIP Co de Phone Number [facility] [address] * Magnesium (10/16/2024 6:31 AM EDT) Magnesium 2.1 1.5 - 2.5 mg/dL 10/16/2024 7:24 AM EDT [facility] Plasma 10/16/2024 6:31 AM EDT 10/16/2024 6:56 AM EDT us Eileen Schroeder MD, PhD LAB BLOOD ORDERABLES Final Result [facility] [address] * (ABNORMAL) Renal Function Panel w/EGFR (10/16/2024 6:31 AM EDT) Sodium 135 133 - 146 mmol/L 10/16/2024 7:24 AM EDT [facility] Potassium 3.7 3.5 - 5.3 mmol/L 10/16/2024 7:24 AM EDT [facility] Chloride 106 98 - 110 mmol/L 10/16/2024 7:24 AM EDT [facility] CO2 16(L) 21 - 33 mmol/L 10/16/2024 7:24 AM EDT [facility] Anion Gap 13 3 - 16 mmol/L 10/16/2024 7:24 AM EDT [facility] BUN 55(H) 7 - 25 mg/dL 10/16/2024 7:24 AM EDT [facility] Creatinine 3.20(H) 0.60 - 1.30 mg/dL 10/16/2024 7:24 AM EDT [facility] Glucose 121(H) 70 - 100 mg/dL 10/16/2024 7:24 AM EDT [facility] Calcium 8.5(L) 8.6 - 10.3 mg/dL 10/16/2024 7:24 AM EDT [facility] Phosphorus 4.2 2.1 - 4.7 mg/dL 10/16/2024 7:24 AM EDT [facility] Albumin 3.4(L) 3.5 - 5.7 g/dL 10/16/2024 7:24 AM EDT [facility] Osmolality, Calculated 296 278 - 305 mOsm/kg 10/16/2024 7:24 AM EDT [facility] EGFR 24 10/16/2024 7:24 AM T [facility] Comment:As of 2021, the [...] LAB BLOOD ORDERABLES Final Result [facility] [address] [place] [address], [facility] * (ABNORMAL) CBC (10/16/2024 6:31 AM EDT) WBC 5.8 3.8 - 10.8 10E3/uL 10/16/2024 8:00 AM EDT [facility] RBC 2.16(L) 4.20 - 5.80 10E6/uL 10/16/2024 8:00 AM EDT [facility] Hemoglobin 7.7(L) 13.2 - 17.1 g/dL 10/16/2024 8:00 AM EDT [facility] Hematocrit 22.1(L) 38.5 - 50.0 % 10/16/2024 8:00 AM EDT [facility] MCV 102.3(H) 80.0 - 100.0 fL 10/16/2024 8:00 AM EDT [facility] MCH 35.7(H) 27.0 - 33.0 pg 10/16/2024 8:00 AM EDT [facility] MCHC 34.9 32.0 - 36.0 g/dL 10/16/2024 8:00 AM EDT [facility] RDW 17.7(H) 11.0 - 15.0 % 10/16/2024 8:00 AM EDT [facility] Platelets 43(L) 140 - 400 10E3/uL 10/16/2024 8:00 AM EDT [facility] Comment: Specimen checked for clots. None detected. Slide Reviewed for PLT Clumps. None Seen. Platelet Estimate Decreased 10/16/2024 8:00 AM EDT [facility] MPV 8.6 7.5 - 11.5 fL 10/16/2024 8:00 AM EDT [facility] Whole Blood 10/16/2024 6:31 AM EDT 10/16/2024 6:57 AM EDT Narrative [facility] - 10/16/2024 8:00 AM EDT Peripheral blood smear was scanned per review criteria approved by the laboratory medical laboratory manager. us Eileen Schroeder MD, PhD LAB BLOOD ORDERABLES Final Result [facility] [address] [place] [address], [facility] * CARISA Rhythm Strip - Scan (10/15/2024 8:02 PM EDT) us Scanning Uchhim SCAN DOCS - NO RESULTS Final Res ult * CARISA Rhythm Strip - Scan (10/15/2024 8:02 PM EDT) us Scanning Uchhim SCAN DOCS - NO RESULTS Final Res ult * Prepare Platelets, leukoreduced, 1 Units (10/15/2024 6:16 AM EDT) Product Code N6924X41 HCLL Unit Number [id number] HCLL Dispense Status Presumed Transfused_PT HCLL Blood Expiration Date [id number] HCLL Coding System [id number] HCLL Blood Bank Product Eleazar Nguyễn MD BLOOD BANK PRODUCT ORDE RABJOSE R Final Result Performing Organization Address [facility] Co de Phone Number HCLL * Prepare Fresh Frozen Plasma, 1 Units (10/15/2024 6:15 AM EDT) Product Code T4955G99 HCLL Unit Number [id number] HCLL Dispense Status Presumed Transfused_PT HCLL Blood Expiration Date [id number] HCLL Coding System [id number] HCLL Blood Bank Product Eleazar Nguyễn MD [...] BLOOD ORDERABLES Final Result [facility] [address] [place] [address], [facility] * (ABNORMAL) Hepatic Function Panel (10/15/2024 6:08 AM EDT) Total Bilirubin 7.1(H) 0.0 - 1.5 mg/dL 10/15/2024 6:45 AM EDT [facility] Bilirubin, Direct 3.77(H) 0.00 - 0.40 mg/dL 10/15/2024 6:45 AM EDT [facility] AST 39 13 - 39 U/L 10/15/2024 6:45 AM EDT [facility] ALT 22 7 - 52 U/L 10/15/2024 6:45 AM EDT [facility] Alkaline Phosphatase 115 36 - 125 U/L 10/15/2024 6:45 AM EDT [facility] Total Protein 4.8(L) 6.4 - 8.9 g/dL 10/15/2024 6:45 AM EDT [facility]ALTH LAB Albumin 3.2(L) 3.5 - 5.7 g/dL 10/15/2024 6:45 AM EDT [facility] Bilirubin, Indirect 3.33(H) 0.00 - 1.10 mg/dL 10/15/2024 6:45 AM EDT [facility] Plasma 10/15/2024 6:08 AM EDT 10/15/2024 6:17 AM EDT us Eileen Schroeder MD, PhD LAB BLOOD ORDERABLES Final Result Performing Organization Address City/[facility]/ZIP Co de Phone Number [facility] [address] * Magnesium (10/15/2024 6:08 AM EDT) Magnesium 1.8 1.5 - 2.5 mg/dL 10/15/2024 6:45 AM EDT [facility] Plasma 10/15/2024 6:08 AM EDT 10/15/2024 6:17 AM EDT us Eileen Schroeder MD, PhD LAB BLOOD ORDERABLES Final Result Performing Organization Address [facility] de Phone Number [facility] [address] * (ABNORMAL) Renal Function Panel w/EGFR (10/15/2024 6:08 AM EDT) Sodium 135 133 - 146 mmol/L 10/15/2024 6:45 AM EDT [facility] Potassium 3.4(L) 3.5 - 5.3 mmol/L 10/15/2024 6:45 AM EDT [facility] Chloride 107 98 - 110 mmol/L 10/15/2024 6:45 AM EDT [facility] CO2 17(L) 21 - 33 mmol/L 10/15/2024 6:45 AM EDT [facility] Anion Gap 11 3 - 16 mmol/L 10/15/2024 6:45 AM EDT [facility] BUN 55(H) 7 - 25 mg/dL 10/15/2024 6:45 AM EDT [facility] Creatinine 2.88(H) 0.60 - 1.30 mg/dL 10/15/2024 6:45 AM EDT [facility] Glucose 125(H) 70 - 100 mg/dL 10/15/2024 6:45 AM EDT [facility] Calcium 8.4(L) 8.6 - 10.3 mg/dL 10/15/2024 6:45 AM EDT [facility] Phosphorus 3.9 2.1 - 4.7 mg/dL 10/15/2024 6:45 AM EDT [facility] Albumin 3.2(L) 3.5 - 5.7 g/dL 10/15/2024 6:45 AM EDT [facility] Osmolality, Calculated 297 278 - 305 mOsm/kg 10/15/2024 6:45 AM EDT [facility] EGFR 27 10/15/2024 6:45 AM EDT [facility] Comment:As of 2021, the [...] LAB BLOOD ORDERABLES Final Result [facility] [address] [place], [place] [address] * (ABNORMAL) CBC (10/15/2024 6:08 AM EDT) WBC 4.6 3.8 - 10.8 10E3/uL 10/15/2024 6:51 AM EDT [facility] RBC 1.94(L) 4.20 - 5.80 10E6/uL 10/15/2024 6:51 AM EDT [facility] Hemoglobin 7.1(L) 13.2 - 17.1 g/dL 10/15/2024 6:51 AM EDT [facility] Hematocrit 19.6(L) 38.5 - 50.0 % 10/15/2024 6:51 AM EDT [facility] MCV 100.8(H) 80.0 - 100.0 fL 10/15/2024 6:51 AM EDT [facility] MCH 36.7(H) 27.0 - 33.0 pg 10/15/2024 6:51 AM EDT [facility] MCHC 36.4(H) 32.0 - 36.0 g/dL 10/15/2024 6:51 AM EDT [facility] RDW 17.3(H) 11.0 - 15.0 % 10/15/2024 6:51 AM EDT [facility] Platelets 34(L) 140 - 400 10E3/uL 10/15/2024 6:51 AM EDT [facility] Comment:Specimen checked for clots. None detected. MPV 8.7 7.5 - 11.5 fL 10/15/2024 6:51 AM EDT [facility] Whole Blood 10/15/2024 6:08 AM EDT 10/15/2024 6:17 AM EDT us Eileen Schroeder MD, PhD LAB BLOOD ORDERABLES Final Result Performing Organization Address [facility]/State/[facility] Co de Phone Number [facility] [address] * PRA-HLA Ab Screen (Cytotoxic) (10/15/2024 6:08 AM EDT) [facility] The request and specimen(s) for this test have been received and transported to the [facility] at [address] [place] [address]. The [facility] will report results directly to the client. 10/15/2024 6:42 AM EDT [facility] Comment:The request and spec imen(s) for this test have been received and transported to the [facility] [place] at [address] [place] [address]. The [facility] will report results directly to the client. Serum 10/15/2024 6:0 8 AM EDT 10/15/2024 6:42 AM EDT us Cosmo Pacheco MD LAB BLOOD ORDERABLES Final Resul t [facility]ALTH [facility] [address] [facility]. [address] * LEFT HEART CATH (10/14/2024 2:09 PM EDT) 10/14/2024 11:4 7 AM EDT Narrative [facility] - 10/14/2024 9:27 PM EDT *[facility]* Cardiac Arbitrator [address] [address] CATHETERIZATION LAB STUDY Patient: Julien Gilbert Age: [...] manner. 3. Right radial artery access. A [id number] Glidesheath - Slender - .021 sheath was [...] + + !LV pressure s/d, ed !, dP/ad=3607ku Hg/s! + + + !Aortic pressure s/d (m)!106/58 (75) ! + + + ATTESTATION: Dr. Matta was present for the entire procedure. Dr. Jay Quan was the initial author of this report. Prepared and electronically signed by Irving Matta MD [id number]:50 Procedure Note Irving Matta MD - 10/14/2024 *[facility]* Cardiac Arbitrator [address] [place] [address] CATHETERIZATION LAB STUDY Patient: Julien Gilbert Age: [...] manner. 3. Right radial artery access. A [id number] Glidesheath - Slender - .021sheath was advanced [...] complications. Contrast: Omnipaque 350 25ml (total dose). Bmpvgqoxp293 125ml (wasted). Radiation: Fluoroscopy time: 15min. Total [...] + !LV pressure s/d, ed !112/, 22, dP/cf=3488mw Hg/s! + + + !Aortic pressure s/d (m)!106/58 (75) ! + + + ATTESTATION: Dr. Matta was present for the entire procedure. Dr. Jay Quan wasthe initial author of this report. Prepared and electronically signed by Irving Matta MD [id number]:50 [place] [id number] Final Result Performing Organization Address [facility] Co de Phone Number [facility] * Transfuse Fresh Frozen Plasma Transfusion Rate: Per dept routine (10/14/2024 2:08 PM EDT) us Eleazar Nguyễn MD NURSING TREATMENT ORDER PAL - BLOOD ADMIN Final Result Performing Organization Address [facility] Co de Phone Number EXTERNAL * Transfuse Fresh Frozen Plasma Transfusion Rate: Per dept routine, 1 Units (10/14/2024 2:08 PM EDT) us Eleazar Nguyễn MD NURSING TREATMENT ORDER PAL - BLOOD ADMIN Final Result Performing Organization Address City/[facility] Co de Phone Number EXTERNAL * Transfuse Platelets Transfusion Rate: Per dept routine (10/14/2024 12:43 PM EDT) us Eleazar Nguyễn MD NURSING TREATMENT ORDER PAL - BLOOD ADMIN Final Result Performing Organization Address [facility] Co de Phone Number EXTERNAL * Transfuse Platelets Transfusion Rate: Per dept routine, 1 Units (10/14/2024 12:43 PM EDT) us Eleazar Nguyễn MD NURSING TREATMENT ORDER PAL - BLOOD ADMIN Final Result EXTERNAL * Antibody Screen (10/14/2024 8:21 AM EDT) Antibody Screen Negative 10/14/2024 9:11 AM EDT [facility] Blood 10/14/2024 8:21 AM EDT 10/14/2024 8:33 AM EDT Narrative [facility] - 10/14/2024 9:26 AM EDT Testing performed by [facility] Transfusion Service us Eleazar Nguyễn MD BLOOD BANK TEST ORDERAB LES Final Result Performing Organization Address [facility] Co de Phone Number [facility] [address] [facility]. [address] * ABO/Rh (10/14/2024 8:21 AM EDT) ABO Grouping O 10/14/2024 8:55 AM EDT [facility] Rh Type Positive 10/14/2024 8:55 AM EDT [facility] Blood 10/14/2024 8:21 AM EDT 10/14/2024 8:33 AM EDT Eleazar Nguyễn MD BLOOD BANK TEST ORDERAB LES Final Result Performing Organization Address [facility] Co de Phone Number [facility] [address] [facility]. [address] * (ABNORMAL) Protime-INR (10/14/2024 2:53 AM EDT) Protime 23.8(H) 12.1 - 15.1 seconds 10/14/2024 4:34 AM EDT [facility] INR 2.1(H) 0.9 - 1.1 10/14/2024 4:34 AM EDT [facility] Comment: RECOMMENDED THERAPEUTIC RANGES USING INR : Stable oral anticoagulant therapy: 2.0 - 3.0 Mechanical prosthetic heart valve: 2.5 - 3.5 Recurrent acute myocardial infarction: 2.5 - 3.5 Plasma 10/14/2024 2:53 AM EDT 10/14/2024 4:16 AM EDT Eileen Schroeder MD, PhD LAB BLOOD ORDERABLES Final Result Performing Organization Address [facility] Co de Phone Number [facility] [address] * (ABNORMAL) Hepatic Function Panel (10/14/2024 2:53 AM EDT) Total Bilirubin 7.2(H) 0.0 - 1.5 mg/dL 10/14/2024 4:45 AM EDT [facility] Bilirubin, Direct 3.86(H) 0.00 - 0.40 mg/dL 10/14/2024 4:45 AM EDT [facility] AST 41(H) 13 - 39 U/L 10/14/2024 4:45 AM EDT [facility] ALT 22 7 - 52 U/L 10/14/2024 4:45 AM EDT [facility] Alkaline Phosphatase 119 36 - 125 U/L 10/14/2024 4:45 AM EDT [facility] Total Protein 4.6(L) 6.4 - 8.9 g/dL 10/14/2024 4:45 AM EDT [facility] Albumin 3.3(L) 3.5 - 5.7 g/dL 10/14/2024 4:45 AM EDT [facility] Bilirubin, Indirect 3.34(H) 0.00 - 1.10 mg/dL 10/14/2024 4:45 AM EDT [facility] Plasma 10/14/2024 2:53 AM EDT 10/14/2024 4:16 AM EDT Eileen Schroeder MD, PhD LAB BLOOD ORDERABLES Final Result Performing Organization Address [facility]/ZIP Co de Phone Number [facility] [address] [facility]. [address] * Magnesium (10/14/2024 2:53 AM EDT) Magnesium 1.9 1.5 - 2.5 mg/dL 10/14/2024 4:45 AM EDT [facility] Plasma 10/14/2024 2:53 AM EDT 10/14/2024 4:16 AM EDT Eileen Schroeder MD, PhD LAB BLOOD ORDERABLES Final Result [facility] [address] [place] [address], [facility] * (ABNORMAL) Renal Function Panel w/EGFR (10/14/2024 2:53 AM EDT) Sodium 136 133 - 146 mmol/L 10/14/2024 4:45 AM EDT [facility] Potassium 3.5 3.5 - 5.3 mmol/L 10/14/2024 4:45 AM EDT [facility] Chloride 107 98 - 110 mmol/L 10/14/2024 4:45 AM EDT [facility] CO2 16(L) 21 - 33 mmol/L 10/14/2024 4:45 AM EDT [facility] Anion Gap 13 3 - 16 mmol/L 10/14/2024 4:45 AM EDT [facility] BUN 55(H) 7 - 25 mg/dL 10/14/2024 4:45 AM EDT [facility] Creatinine 3.01(H) 0.60 - 1.30 mg/dL 10/14/2024 4:45 AM EDT [facility] Glucose 95 70 - 100 mg/dL 10/14/2024 4:45 AM EDT [facility] Calcium 8.5(L) 8.6 - 10.3 mg/dL 10/14/2024 4:45 AM EDT [facility] Phosphorus 4.4 2.1 - 4.7 mg/dL 10/14/2024 4:45 AM EDT [facility] Albumin 3.3(L) 3.5 - 5.7 g/dL 10/14/2024 4:45 AM EDT [facility] Osmolality, Calculated 297 278 - 305 mOsm/kg 10/14/2024 4:45 AM EDT [facility] EGFR 26 10/14/2024 4:45 AM EDT [facility] Comment:As of 2021, the [...] LAB BLOOD ORDERABLES Final Result [facility] [address] [id number], [facility] * (ABNORMAL) CBC (10/14/2024 2:53 AM EDT) WBC 5.5 3.8 - 10.8 10E3/uL 10/14/2024 5:00 AM EDT [facility] RBC 2.09(L) 4.20 - 5.80 10E6/uL 10/14/2024 5:00 AM EDT [facility] Hemoglobin 7.6(L) 13.2 - 17.1 g/dL 10/14/2024 5:00 AM EDT [facility] Hematocrit 21.3(L) 38.5 - 50.0 % 10/14/2024 5:00 AM EDT [facility] MCV 101.7(H) 80.0 - 100.0 fL 10/14/2024 5:00 AM EDT [facility] MCH 36.3(H) 27.0 - 33.0 pg 10/14/2024 5:00 AM EDT [facility] MCHC 35.7 32.0 - 36.0 g/dL 10/14/2024 5:00 AM EDT [facility] RDW 17.6(H) 11.0 - 15.0 % 10/14/2024 5:00 AM EDT [facility] Platelets 35(L) 140 - 400 10E3/uL 10/14/2024 5:00 AM EDT [facility] Comment: Specimen checked for clots. None detected. Slide Reviewed for PLT Clumps. None Seen. MPV 8.5 7.5 - 11.5 fL 10/14/2024 5:00 AM EDT [facility] Whole Blood 10/14/2024 2:53 AM EDT 10/14/2024 4:17 AM EDT us Eileen Schroeder MD, PhD LAB BLOOD ORDERABLES Final Result Performing Organization Address City/State/[facility] Co de Phone Number [facility] [address] * Cardiac Cath Documents Scan (10/14/2024 [...] mL of GADOBUTROL 1 MMOL/ML INTRAVENOUS SYRINGE ([facility]) administered intravenously COMPARISON: CT 09/03/2024. Ultrasound [...] mL of GADOBUTROL 1 MMOL/ML INTRAVENOUS SYRINGE ([facility])administered intravenously COMPARISON: CT 09/03/2024. Ultrasound 10/07/2024. [...] BLOOD ORDERABLES Final Result Performing Organization Address City/State/[facility] Co de Phone Number [facility] [address] * (ABNORMAL) Hepatic Function Panel (10/13/2024 5:35 AM EDT) Total Bilirubin 6.5(H) 0.0 - 1.5 mg/dL 10/13/2024 6:30 AM EDT [facility] Bilirubin, Direct 3.53(H) 0.00 - 0.40 mg/dL 10/13/2024 6:30 AM EDT [facility] AST 42(H) 13 - 39 U/L 10/13/2024 6:30 AM EDT [facility] ALT 19 7 - 52 U/L 10/13/2024 6:30 AM EDT [facility] Alkaline Phosphatase 108 36 - 125 U/L 10/13/2024 6:30 AM EDT [facility] Total Protein 4.4(L) 6.4 - 8.9 g/dL 10/13/2024 6:30 AM EDT [facility] Albumin 3.1(L) 3.5 - 5.7 g/dL 10/13/2024 6:30 AM EDT [facility] Bilirubin, Indirect 2.97(H) 0.00 - 1.10 mg/dL 10/13/2024 6:30 AM EDT [facility] Plasma 10/13/2024 5:35 AM EDT 10/13/2024 5:52 AM EDT Eileen Schroeder MD, PhD LAB BLOOD ORDERABLES Final Result Performing Organization Address City/[facility]/ZIP Co de Phone Number [facility] [address] * Magnesium (10/13/2024 5:35 AM EDT) Magnesium 2.0 1.5 - 2.5 mg/dL 10/13/2024 6:30 AM EDT [facility] Plasma 10/13/2024 5:35 AM EDT 10/13/2024 5:52 AM EDT Eileen Schroeder MD, PhD LAB BLOOD ORDERABLES Final Result Performing Organization Address [facility] de Phone Number [facility] [address] * (ABNORMAL) Renal Function Panel w/EGFR (10/13/2024 5:35 AM EDT) Sodium 134 133 - 146 mmol/L 10/13/2024 6:30 AM EDT [facility] Potassium 3.7 3.5 - 5.3 mmol/L 10/13/2024 6:30 AM EDT [facility] Chloride 109 98 - 110 mmol/L 10/13/2024 6:30 AM EDT [facility] CO2 14(L) 21 - 33 mmol/L 10/13/2024 6:30 AM EDT [facility] Anion Gap 11 3 - 16 mmol/L 10/13/2024 6:30 AM EDT [facility] BUN 54(H) 7 - 25 mg/dL 10/13/2024 6:30 AM EDT [facility] Creatinine 2.99(H) 0.60 - 1.30 mg/dL 10/13/2024 6:30 AM EDT [facility] Glucose 116(H) 70 - 100 mg/dL 10/13/2024 6:30 AM EDT [facility] Calcium 8.3(L) 8.6 - 10.3 mg/dL 10/13/2024 6:30 AM EDT [facility] Phosphorus 4.5 2.1 - 4.7 mg/dL 10/13/2024 6:30 AM EDT [facility] Albumin 3.1(L) 3.5 - 5.7 g/dL 10/13/2024 6:30 AM EDT [facility] Osmolality, Calculated 294 278 - 305 mOsm/kg 10/13/2024 6:30 AM EDT [facility] EGFR 26 10/13/2024 6:30 AM EDT [facility] Comment:As of 2021, the [...] LAB BLOOD ORDERABLES Final Result [facility] [address] [place] [address], [facility] * (ABNORMAL) CBC (10/13/2024 5:35 AM EDT) WBC 4.7 3.8 - 10.8 10E3/uL 10/13/2024 6:22 AM EDT [facility] RBC 2.06(L) 4.20 - 5.80 10E6/uL 10/13/2024 6:22 AM EDT [facility] Hemoglobin 7.4(L) 13.2 - 17.1 g/dL 10/13/2024 6:22 AM EDT [facility] Hematocrit 21.7(L) 38.5 - 50.0 % 10/13/2024 6:22 AM EDT [facility] MCV 105.4(H) 80.0 - 100.0 fL 10/13/2024 6:22 AM EDT [facility] MCH 35.9(H) 27.0 - 33.0 pg 10/13/2024 6:22 AM EDT [facility] MCHC 34.0 32.0 - 36.0 g/dL 10/13/2024 6:22 AM EDT [facility] RDW 18.5(H) 11.0 - 15.0 % 10/13/2024 6:22 AM EDT [facility] Platelets 35(L) 140 - 400 10E3/uL 10/13/2024 6:22 AM EDT [facility] Comment: CNV Specimen checked for clots. None detected. MPV 8.4 7.5 - 11.5 fL 10/13/2024 6:22 AM EDT [facility] Whole Blood 10/13/2024 5:35 AM EDT 10/13/2024 5:53 AM EDT us Eileen Schroeder MD, PhD LAB BLOOD ORDERABLES Final Result [facility] [address] * (ABNORMAL) Ammonia (10/13/2024 5:35 AM EDT) Ammonia 203(HH) 27 - 90 ug/dL 10/13/2024 7:16 AM EDT [facility] Comment: HEMOLYSIS EVIDENT. RESULTS MAY BE INFLUENCED. Critical Result [id number] Called to and read back by: KEY MELO RN at: 10/13/2024 07:15:55 by:NISREEN Plasma 10/13/2024 5:35 AM EDT 10/13/2024 6:19 AM EDT us Magenkaren Mays DO LAB BLOOD ORDERABLES Final Resul t Performing Organization Address City/[facility]/ZIP Co de Phone Number [facility] [address] * CARISA Rhythm Strip - Scan (10/12/2024 10:30 PM EDT) us Scanning [place] SCAN DOCS - NO RESULTS Final Res ult * (ABNORMAL) Protime-INR (10/12/2024 5:44 AM EDT) Protime 25.7(H) 12.1 - 15.1 seconds 10/12/2024 6:12 AM EDT [facility] INR 2.3(H) 0.9 - 1.1 10/12/2024 6:12 AM EDT [facility] Comment: RECOMMENDED THERAPEUTIC RANGES USING INR : Stable oral anticoagulant therapy: 2.0 - 3.0 Mechanical prosthetic heart valve: 2.5 - 3.5 Recurrent acute myocardial infarction: 2.5 - 3.5 Plasma 10/12/2024 5:44 AM EDT 10/12/2024 5:58 AM EDT Eileen Schroeder MD, PhD LAB BLOOD ORDERABLES Final Result Performing Organization Address [facility] Co de Phone Number [facility] [address] * (ABNORMAL) Hepatic Function Panel (10/12/2024 5:44 AM EDT) Total Bilirubin 6.5(H) 0.0 - 1.5 mg/dL 10/12/2024 6:29 AM EDT [facility] Bilirubin, Direct 3.64(H) 0.00 - 0.40 mg/dL 10/12/2024 6:29 AM EDT [facility] AST 40(H) 13 - 39 U/L 10/12/2024 6:29 AM EDT [facility] ALT 19 7 - 52 U/L 10/12/2024 6:29 AM EDT [facility] Alkaline Phosphatase 99 36 - 125 U/L 10/12/2024 6:29 AM EDT [facility] Total Protein 4.2(L) 6.4 - 8.9 g/dL 10/12/2024 6:29 AM EDT [facility] Albumin 3.1(L) 3.5 - 5.7 g/dL 10/12/2024 6:29 AM EDT [facility] Bilirubin, Indirect 2.86(H) 0.00 - 1.10 mg/dL 10/12/2024 6:29 AM EDT [facility] Plasma 10/12/2024 5:44 AM EDT 10/12/2024 5:58 AM EDT Eileen Schroeder MD, PhD LAB BLOOD ORDERABLES Final Result Performing Organization Address City/[facility]/ZIP Co de Phone Number [facility] [address] * Magnesium (10/12/2024 5:44 AM EDT) Magnesium 1.9 1.5 - 2.5 mg/dL 10/12/2024 6:29 AM EDT [facility] Plasma 10/12/2024 5:44 AM EDT 10/12/2024 5:58 AM EDT Eileen Schroeder MD, PhD LAB BLOOD ORDERABLES Final Result [facility] [address] * (ABNORMAL) Renal Function Panel w/EGFR (10/12/2024 5:44 AM EDT) Sodium 135 133 - 146 mmol/L 10/12/2024 6:29 AM EDT [facility] Potassium 3.7 3.5 - 5.3 mmol/L 10/12/2024 6:29 AM EDT [facility] Chloride 109 98 - 110 mmol/L 10/12/2024 6:29 AM EDT [facility] CO2 17(L) 21 - 33 mmol/L 10/12/2024 6:29 AM EDT [facility] Anion Gap 9 3 - 16 mmol/L 10/12/2024 6:29 AM EDT [facility] BUN 52(H) 7 - 25 mg/dL 10/12/2024 6:29 AM EDT [facility] Creatinine 2.94(H) 0.60 - 1.30 mg/dL 10/12/2024 6:29 AM EDT [facility] Glucose 121(H) 70 - 100 mg/dL 10/12/2024 6:29 AM EDT [facility] Calcium 8.5(L) 8.6 - 10.3 mg/dL 10/12/2024 6:29 AM EDT [facility] Phosphorus 4.6 2.1 - 4.7 mg/dL 10/12/2024 6:29 AM EDT [facility] Albumin 3.1(L) 3.5 - 5.7 g/dL 10/12/2024 6:29 AM EDT [facility] Osmolality, Calculated 295 278 - 305 mOsm/kg 10/12/2024 6:29 AM EDT [facility] EGFR 27 10/12/2024 6:29 AM EDT [facility] Comment:As of 2021, the [...] LAB BLOOD ORDERABLES Final Result [facility] [address] [facility] [place] [address], [facility] * (ABNORMAL) CBC (10/12/2024 5:44 AM EDT) WBC 3.3(L) 3.8 - 10.8 10E3/uL 10/12/2024 7:06 AM EDT [facility] RBC 1.95(L) 4.20 - 5.80 10E6/uL 10/12/2024 7:06 AM EDT [facility] Hemoglobin 7.2(L) 13.2 - 17.1 g/dL 10/12/2024 7:06 AM EDT [facility] Hematocrit 19.7(L) 38.5 - 50.0 % 10/12/2024 7:06 AM EDT [facility] MCV 101.2(H) 80.0 - 100.0 fL 10/12/2024 7:06 AM EDT [facility] MCH 37.0(H) 27.0 - 33.0 pg 10/12/2024 7:06 AM EDT [facility] MCHC 36.5(H) 32.0 - 36.0 g/dL 10/12/2024 7:06 AM EDT [facility] RDW 17.6(H) 11.0 - 15.0 % 10/12/2024 7:06 AM EDT [facility] Platelets 30(L) 140 - 400 10E3/uL 10/12/2024 7:06 AM EDT [facility] Comment: Specimen checked for clots. None detected. Slide Reviewed for PLT Clumps. None Seen. Platelet Estimate Decreased 10/12/2024 7:06 AM EDT [facility] MPV 8.3 7.5 - 11.5 fL 10/12/2024 7:06 AM EDT [facility] Whole Blood 10/12/2024 5:44 AM EDT 10/12/2024 5:58 AM EDT Narrative [facility] - 10/12/2024 7:06 AM EDT Peripheral blood smear was scanned per review criteria approved by the laboratory medical laboratory manager. Eileen Schroeder MD, PhD LAB BLOOD ORDERABLES Final Result Performing Organization Address City/[facility]/ZIP Co de Phone Number [facility] [address] * CARIAS Rhythm Strip - Scan (10/11/2024 10:04 PM EDT) us Scanning Uchhim SCAN DOCS - NO RESULTS Final Res ult * (ABNORMAL) Protime-INR (10/11/2024 3:02 AM EDT) Protime 26.8(H) 12.1 - 15.1 seconds 10/11/2024 3:30 AM EDT [facility] INR 2.4(H) 0.9 - 1.1 10/11/2024 3:30 AM EDT [facility] Comment: RECOMMENDED THERAPEUTIC RANGES USING INR : Stable oral anticoagulant therapy: 2.0 - 3.0 Mechanical prosthetic heart valve: 2.5 - 3.5 Recurrent acute myocardial infarction: 2.5 - 3.5 Plasma 10/11/2024 3:02 AM EDT 10/11/2024 3:08 AM EDT Eileen Schroeder MD, PhD LAB BLOOD ORDERABLES Final Result Performing Organization Address [facility] Co de Phone Number [facility] [address] * (ABNORMAL) Hepatic Function Panel (10/11/2024 3:02 AM EDT) Total Bilirubin 7.3(H) 0.0 - 1.5 mg/dL 10/11/2024 3:38 AM EDT [facility] Bilirubin, Direct 3.85(H) 0.00 - 0.40 mg/dL 10/11/2024 3:38 AM EDT [facility] AST 39 13 - 39 U/L 10/11/2024 3:38 AM EDT [facility] ALT 20 7 - 52 U/L 10/11/2024 3:38 AM EDT [facility] Alkaline Phosphatase 88 36 - 125 U/L 10/11/2024 3:38 AM EDT [facility] Total Protein 4.5(L) 6.4 - 8.9 g/dL 10/11/2024 3:38 AM EDT [facility] Albumin 3.3(L) 3.5 - 5.7 g/dL 10/11/2024 3:38 AM EDT [facility] Bilirubin, Indirect 3.45(H) 0.00 - 1.10 mg/dL 10/11/2024 3:38 AM EDT [facility] Plasma 10/11/2024 3:02 AM EDT 10/11/2024 3:08 AM EDT Eileen Schroeder MD, PhD LAB BLOOD ORDERABLES Final Result Performing Organization Address [facility] Co de Phone Number [facility] [address] * Magnesium (10/11/2024 3:02 AM EDT) Magnesium 2.0 1.5 - 2.5 mg/dL 10/11/2024 3:38 AM EDT [facility] Plasma 10/11/2024 3:02 AM EDT 10/11/2024 3:08 AM EDT Eileen Schroeder MD, PhD LAB BLOOD ORDERABLES Final Result Performing Organization Address [facility]/ZIP Co de Phone Number [facility] [address] * (ABNORMAL) Renal Function Panel w/EGFR (10/11/2024 3:02 AM EDT) Sodium 134 133 - 146 mmol/L 10/11/2024 3:38 AM EDT [facility] Potassium 3.6 3.5 - 5.3 mmol/L 10/11/2024 3:38 AM EDT [facility] Chloride 108 98 - 110 mmol/L 10/11/2024 3:38 AM EDT [facility] CO2 16(L) 21 - 33 mmol/L 10/11/2024 3:38 AM EDT [facility] Anion Gap 10 3 - 16 mmol/L 10/11/2024 3:38 AM EDT [facility] BUN 49(H) 7 - 25 mg/dL 10/11/2024 3:38 AM EDT [facility] Creatinine 2.77(H) 0.60 - 1.30 mg/dL 10/11/2024 3:38 AM EDT [facility] Glucose 112(H) 70 - 100 mg/dL 10/11/2024 3:38 AM EDT [facility] Calcium 8.9 8.6 - 10.3 mg/dL 10/11/2024 3:38 AM EDT [facility] Phosphorus 3.5 2.1 - 4.7 mg/dL 10/11/2024 3:38 AM EDT [facility] Albumin 3.3(L) 3.5 - 5.7 g/dL 10/11/2024 3:38 AM EDT [facility] Osmolality, Calculated 292 278 - 305 mOsm/kg 10/11/2024 3:38 AM EDT [facility] EGFR 29 10/11/2024 3:38 AM EDT [facility] Comment:As of 2021, the [...] LAB BLOOD ORDERABLES Final Result [facility] [address] [place], [place] [address] * (ABNORMAL) CBC (10/11/2024 3:02 AM EDT) WBC 4.0 3.8 - 10.8 10E3/uL 10/11/2024 3:55 AM EDT [facility] RBC 2.11(L) 4.20 - 5.80 10E6/uL 10/11/2024 3:55 AM EDT [facility] Hemoglobin 7.7(L) 13.2 - 17.1 g/dL 10/11/2024 3:55 AM EDT [facility] Hematocrit 21.2(L) 38.5 - 50.0 % 10/11/2024 3:55 AM EDT [facility] MCV 100.5(H) 80.0 - 100.0 fL 10/11/2024 3:55 AM EDT [facility] MCH 36.4(H) 27.0 - 33.0 pg 10/11/2024 3:55 AM EDT [facility] MCHC 36.2(H) 32.0 - 36.0 g/dL 10/11/2024 3:55 AM EDT [facility] RDW 17.9(H) 11.0 - 15.0 % 10/11/2024 3:55 AM EDT [facility] Platelets 32(L) 140 - 400 10E3/uL 10/11/2024 3:55 AM EDT [facility] Comment: Specimen checked for clots. None detected. Slide Reviewed for PLT Clumps. None Seen. Platelet Estimate Decreased 10/11/2024 3:55 AM EDT [facility] MPV 8.1 7.5 - 11.5 fL 10/11/2024 3:55 AM EDT [facility] Whole Blood 10/11/2024 3:02 AM EDT 10/11/2024 3:08 AM EDT Narrative [facility] - 10/11/2024 3:55 AM EDT Peripheral blood smear was scanned per review criteria approved by the laboratory medical laboratory manager. us Eileen Schroeder MD, PhD LAB BLOOD ORDERABLES Final Result [facility] [address] * Vancomycin, random (10/11/2024 3:02 AM EDT) Vancomycin Random 13.4 ug/mL 10/11/2024 3:37 AM EDT [facility] Comment:Reference range not established for this test. Plasma 10/11/2024 3:02 AM EDT 10/11/2024 3:08 AM EDT us Jodi Ortiz PharmD LAB BLOOD ORDERABLES Final Result [facility] [address] * IR Paracentesis incl imaging guide [...] diagnostic and therapeutic paracentesis. Bakari Wahl CNP, Sales Demonstrator Procedure and Findings: The procedure was performed [...] Using ultrasound guidance, a 10 cm, 5-F Paperfoldeh Centesis catheter was placed into the right [...] for diagnostic andtherapeutic paracentesis. Bakari Wahl CNP, Sales Demonstrator Procedure and Findings: The procedure was performed [...] Colorless, Pale Yellow 10/10/2024 5:29 PM EDT [facility] Clarity, Fluid Clear 10/10/2024 5:29 PM EDT [facility] Neutrophil %, Fluid 9 % 10/10/2024 5:29 PM EDT [facility] Lymphocytes %, Fluid 13 % 10/10/2024 5:29 PM EDT [facility] Mesothelial %, Fluid 6 % 10/10/2024 5:29 PM EDT [facility] Macrophage %, Fluid 72 % 10/10/2024 5:29 PM EDT [facility] RBC, Fluid 2,662 /uL 10/10/2024 4:41 PM EDT [facility] Total Nucleated Cells, Fluid 89 /uL 10/10/2024 4:41 PM EDT [facility] Comment:Total Nucleated Cell s represent WBCs and other nucleated cells in the fluid such as lining cells. Ascitic Fluid ABDOMEN / Unknown 1:51 PM EDT 10/10/2024 3:56 PM EDT us Gerri Peterson MD BODY FLUIDS AND STOOLS ORDERABL ES Final Result [facility] [address] [place] [address], [facility] * Body Fluid Culture plus Stain (10/10/2024 1:51 PM EDT) Gram Stain Result Cytospin Results: [facility] Gram Stain Result Polymorphonuclear Leukocytes Seen; [facility] Gram Stain Result No Organisms Seen; [facility] Culture Result No Growth After 5 Days [facility] Fluid ABDOMEN / Unknown 10/10/2024 1:51 PM EDT 10/10/2024 3:56 PM EDT us Gerri Peterson MD MICROBIOLOGY - GENERAL ORDERABL ES Final Result [facility] [address] * UPPER GI ENDOSCOPY (10/10/2024 11:48 AM EDT) 10/10/2024 11:4 8 AM EDT Narrative [facility] - 10/10/2024 12:34 PM EDT [id number] Procedure Date: 10/10/2024 11:48 AM Patient Name: Jluien Gilbert Date of : 1985 Admit Type: Inpatient Age: 39 Gender: Male Note Status: Finalized Attending MD: Lino Soto MD, [id number] Procedure: Upper GI endoscopy Indications: Gastroesopahgeal variceal [...] verified by the physician, the nurse, the java scala developer and the wet process technician in the pre-procedure area in the [...] to hypotension Procedure Code(s): --- Professional --- 90967, GC, Esophagogastroduodenoscopy, flexible, transoral; diagnostic, including collection of specimen(s) by brushing or washing, when performed (separate procedure) Diagnosis Code(s): --- Professional --- I85.00, Esophageal varices without bleeding K76.6, Portal hypertension K31.89, Other diseases of stomach and duodenum CPT copyright 2022 [employer]. All rights reserved. The codes documented in this report are preliminary and upon washing machine operator review may be revised to [...] In: 12:10:16 PM Scope Out: 12:17:[address] [place] [address], [id number] us Provider Not In System PROCEDURE/MINOR SURGICAL ORDERABLES Final Result [facility] * (ABNORMAL) Protime-INR (10/10/2024 5:23 AM EDT) Protime 23.9(H) 12.1 - 15.1 seconds 10/10/2024 6:11 AM EDT [facility] INR 2.1(H) 0.9 - 1.1 10/10/2024 6:11 AM EDT [facility] Comment: RECOMMENDED THERAPEUTIC RANGES USING INR : Stable oral anticoagulant therapy: 2.0 - 3.0 Mechanical prosthetic heart valve: 2.5 - 3.5 Recurrent acute myocardial infarction: 2.5 - 3.5 Plasma 10/10/2024 5:23 AM EDT 10/10/2024 5:50 AM EDT Eileen Schroeder MD, PhD LAB BLOOD ORDERABLES Final Result [facility] [address] [place] [address], [facility] * (ABNORMAL) Hepatic Function Panel (10/10/2024 5:23 AM EDT) Total Bilirubin 8.6(H) 0.0 - 1.5 mg/dL 10/10/2024 6:21 AM EDT [facility] Bilirubin, Direct 4.65(H) 0.00 - 0.40 mg/dL 10/10/2024 6:21 AM EDT [facility] AST 40(H) 13 - 39 U/L 10/10/2024 6:21 AM EDT [facility] ALT 22 7 - 52 U/L 10/10/2024 6:21 AM EDT [facility] Alkaline Phosphatase 118 36 - 125 U/L 10/10/2024 6:21 AM EDT [facility] Total Protein 4.6(L) 6.4 - 8.9 g/dL 10/10/2024 6:21 AM EDT [facility] Albumin 3.3(L) 3.5 - 5.7 g/dL 10/10/2024 6:21 AM EDT [facility] Bilirubin, Indirect 3.95(H) 0.00 - 1.10 mg/dL 10/10/2024 6:21 AM EDT [facility] Plasma 10/10/2024 5:23 AM EDT 10/10/2024 5:50 AM EDT Eileen Schroeder MD, PhD LAB BLOOD ORDERABLES Final Result [facility] [address] [facility]. [address] * Magnesium (10/10/2024 5:23 AM EDT) Magnesium 1.9 1.5 - 2.5 mg/dL 10/10/2024 6:21 AM EDT [facility] Plasma 10/10/2024 5:23 AM EDT 10/10/2024 5:50 AM EDT us Eileen Schroeder MD, PhD LAB BLOOD ORDERABLES Final Result Performing Organization Address City/[facility]/ZIP Co de Phone Number [facility] [address] * (ABNORMAL) Renal Function Panel w/EGFR (10/10/2024 5:23 AM EDT) Sodium 135 133 - 146 mmol/L 10/10/2024 6:21 AM EDT [facility] Potassium 3.6 3.5 - 5.3 mmol/L 10/10/2024 6:21 AM EDT [facility] Chloride 108 98 - 110 mmol/L 10/10/2024 6:21 AM EDT [facility] CO2 17(L) 21 - 33 mmol/L 10/10/2024 6:21 AM EDT [facility] Anion Gap 10 3 - 16 mmol/L 10/10/2024 6:21 AM EDT [facility] BUN 53(H) 7 - 25 mg/dL 10/10/2024 6:21 AM EDT [facility] Creatinine 2.85(H) 0.60 - 1.30 mg/dL 10/10/2024 6:21 AM EDT [facility] Glucose 113(H) 70 - 100 mg/dL 10/10/2024 6:21 AM EDT [facility] Calcium 9.0 8.6 - 10.3 mg/dL 10/10/2024 6:21 AM EDT [facility] Phosphorus 3.3 2.1 - 4.7 mg/dL 10/10/2024 6:21 AM EDT [facility] Albumin 3.3(L) 3.5 - 5.7 g/dL 10/10/2024 6:21 AM EDT [facility] Osmolality, Calculated 295 278 - 305 mOsm/kg 10/10/2024 6:21 AM EDT [facility] EGFR 28 10/10/2024 6:21 AM EDT [facility] Comment:As of 2021, the [...] LAB BLOOD ORDERABLES Final Result [facility] [address] [place] [address], [facility] * (ABNORMAL) CBC (10/10/2024 5:23 AM EDT) WBC 5.1 3.8 - 10.8 10E3/uL 10/10/2024 6:14 AM EDT [facility] RBC 2.04(L) 4.20 - 5.80 10E6/uL 10/10/2024 6:14 AM EDT [facility] Hemoglobin 7.3(L) 13.2 - 17.1 g/dL 10/10/2024 6:14 AM EDT [facility] Hematocrit 20.6(L) 38.5 - 50.0 % 10/10/2024 6:14 AM EDT [facility] MCV 101.2(H) 80.0 - 100.0 fL 10/10/2024 6:14 AM EDT [facility] MCH 36.0(H) 27.0 - 33.0 pg 10/10/2024 6:14 AM EDT [facility] MCHC 35.5 32.0 - 36.0 g/dL 10/10/2024 6:14 AM EDT [facility] RDW 17.6(H) 11.0 - 15.0 % 10/10/2024 6:14 AM EDT [facility] Platelets 39(L) 140 - 400 10E3/uL 10/10/2024 6:14 AM EDT [facility] Comment: CNV Specimen checked for clots. None detected. MPV 9.8 7.5 - 11.5 fL 10/10/2024 6:14 AM EDT [facility] Whole Blood 10/10/2024 5:23 AM EDT 10/10/2024 5:51 AM EDT us Eileen Schroeder MD, PhD LAB BLOOD ORDERABLES Final Result [facility] [address] * Vancomycin, random (10/10/2024 5:23 AM EDT) Vancomycin Random 16.4 ug/mL 10/10/2024 6:22 AM EDT [facility] Comment:Reference range not established for this test. Plasma 10/10/2024 5:23 AM EDT 10/10/2024 5:51 AM EDT us Jodi FreireD LAB BLOOD ORDERABLES Final Result [facility] [address] * ECHO STRESS W/ CONTRAST (10/09/2024 4:37 PM EDT) Anatomical Region Laterality Modality Chest Ultrasound 10/09/2024 2:40 PM EDT Narrative 10/09/2024 6:45 PM EDT * [facility]* [facility] [place], [place] [id number] Stress Echocardiogram Patient: Julien Gilbert Room: 8142 Height: 76in MR Number: [id number] : 1985 Weight: 262lb Account: [id number] Gender: M BP: 125 / 77 Study Date: 10/09/2024 Age: 39 BSA: 2.48m^2 Referring physician: Gerri Peterson Interpreting physician: Tonya Henriquez MD FELLOW Lisa Jha MD PERFORMING Tonya Henriquez MD OIL FIELD EQUIPMENT MECHANIC [employer] REFERRING Gerri Peterson ATTENDING [...] by the addition of hand director of vendor management and leg lifts. The infusion was terminated [...] at baseline or with provocation, shows no avqfp-nj-qhoq atrial level shunt. - Pulmonary arteries: Systolic [...] at baseline or with provocation, shows no xspjt-ul-rpaf atrial level shunt. Pulmonary artery: - Systolic [...] at baseline or with provocation, shows no ohume-uo-egpb atrial level shunt. Pericardium: - There is [...] peak heart rate and blood pressure was 23938vl Hg/min. Stress testing did not produce any [...] Reviewed and confirmed by Tonya Henriquez MD [id number] Procedure Note Tonya Henriquez MD - 10/09/2024 * [facility]* [address] [place] [address] Stress Echocardiogram Patient: Julien Gilbert Room: 8142 Height: 76in MR Number: [id number] : 1985 Weight: 262lb Account: [id number] Gender: M BP: 125 / 77 Study Date: 10/09/2024 Age: 39 BSA: 2.48m^2 Referring physician: Gerri Peterson Interpreting physician: Tonya Henriquez MD FELLOW Lisa Jha MD PERFORMING Tonya Henriquez MD OIL FIELD EQUIPMENT MECHANIC [employer] ORDERING Gerri Peterson REFERRING Gerri [...] by the addition of hand director of vendor management and leg lifts. The infusion was terminated [...] at baseline or with provocation, shows no rsdiz-kj-mmax atrial level shunt. - Pulmonary arteries: Systolic [...] study at baseline or with provocation, showsno unubn-vq-lmwi atrial level shunt. Pulmonary artery: - Systolic [...] at baseline or with provocation, shows no zyrhv-gf-wdlk atrial level shunt. Pericardium: - There is [...] heart rate). The maximal predicted heart rate [id number]. The target heart rate was 152bpm. The target heart rate was achieved.The heart rate response to stress is normal. There is a normal resting blood pressure with an appropriate response to stress. The rate-pressureproduct for the peak heart rate and blood pressure was 23995my Hg/min. Stress testing did not produce any [...] cm --------- Area 3.6 cm^2 --------- Peak yogn, S 1.22 m/sec --------- Mean yong, S [...] Reviewed and confirmed by Tonya Henriquez MD [id number] us Gerri Peterson MD CV ECHO ORDERABLES Final Result * (ABNORMAL) Renal Function Panel w/EGFR, STAT (10/09/2024 1:05 PM EDT) Sodium 134 133 - 146 mmol/L 10/09/2024 2:10 PM EDT [facility] Potassium 3.7 3.5 - 5.3 mmol/L 10/09/2024 2:10 PM EDT [facility] Chloride 105 98 - 110 mmol/L 10/09/2024 2:10 PM EDT [facility] CO2 17(L) 21 - 33 mmol/L 10/09/2024 2:10 PM EDT [facility] Anion Gap 12 3 - 16 mmol/L 10/09/2024 2:10 PM EDT [facility] BUN 53(H) 7 - 25 mg/dL 10/09/2024 2:10 PM EDT [facility] Creatinine 2.89(H) 0.60 - 1.30 mg/dL 10/09/2024 2:10 PM EDT [facility] Glucose 108(H) 70 - 100 mg/dL 10/09/2024 2:10 PM EDT [facility] Calcium 9.3 8.6 - 10.3 mg/dL 10/09/2024 2:10 PM EDT [facility] Phosphorus 3.4 2.1 - 4.7 mg/dL 10/09/2024 2:10 PM EDT [facility] Albumin 3.6 3.5 - 5.7 g/dL 10/09/2024 2:10 PM EDT [facility] Osmolality, Calculated 293 278 - 305 mOsm/kg 10/09/2024 2:10 PM EDT [facility] EGFR 27 10/09/2024 2:10 PM EDT [facility] Comment:As of 2021, the [...] LAB BLOOD ORDERABLES Final Result [facility] [address] * (ABNORMAL) Renal Function Panel w/EGFR, STAT (10/09/2024 8:14 AM EDT) Sodium 134 133 - 146 mmol/L 10/09/2024 8:47 AM EDT [facility] Potassium 3.4(L) 3.5 - 5.3 mmol/L 10/09/2024 8:47 AM EDT [facility] Chloride 107 98 - 110 mmol/L 10/09/2024 8:47 AM EDT [facility] CO2 17(L) 21 - 33 mmol/L 10/09/2024 8:47 AM EDT [facility] Anion Gap 10 3 - 16 mmol/L 10/09/2024 8:47 AM EDT [facility] BUN 54(H) 7 - 25 mg/dL 10/09/2024 8:47 AM EDT [facility] Creatinine 3.04(H) 0.60 - 1.30 mg/dL 10/09/2024 8:47 AM EDT [facility] LAB Glucose 124(H) 70 - 100 mg/dL 10/09/2024 8:47 AM EDT [facility] Calcium 9.0 8.6 - 10.3 mg/dL 10/09/2024 8:47 AM EDT [facility] Phosphorus 3.5 2.1 - 4.7 mg/dL 10/09/2024 8:47 AM EDT [facility] Albumin 3.4(L) 3.5 - 5.7 g/dL 10/09/2024 8:47 AM EDT [facility] Osmolality, Calculated 294 278 - 305 mOsm/kg 10/09/2024 8:47 AM EDT [facility] EGFR 26 10/09/2024 8:47 AM EDT [facility] Comment:As of 2021, the [...] BLOOD ORDERABLES Final Resu lt [facility] [address] * Prepare RBC, leukoreduced, 1 Units (10/09/2024 6:16 AM EDT) Product Code [id number] HCLL Unit Number [id number] HCLL Dispense Status Presumed Transfused_PT HCLL Blood Expiration Date [id number] HCLL Coding System [id number] HCLL Blood Bank Product us Eileen Schroeder MD, PhD BLOOD BANK PRODUCT OR DERABLES Final Result HCLL * (ABNORMAL) Protime-INR (10/09/2024 4:59 AM EDT) Pathologist [facility] [place] Protime 26.5(H) 12.1 - 15.1 seconds 10/09/2024 [...] BLOOD ORDERABLES Final Result Performing Organization Address [facility] Co de Phone Number [facility] [address] * (ABNORMAL) Hepatic Function Panel (10/09/2024 4:59 AM EDT) Pathologist [facility] [place] Total Bilirubin 9.0(H) 0.0 - 1.5 mg/dL 10/09/2024 6:42 AM EDT [facility] Bilirubin, Direct 4.60(H) 0.00 - 0.40 mg/dL 10/09/2024 6:42 AM EDT [facility] AST 38 13 - 39 U/L 10/09/2024 6:42 AM EDT [facility] ALT 18 7 - 52 U/L 10/09/2024 6:42 AM EDT [facility] Alkaline Phosphatase 122 36 - 125 U/L 10/09/2024 6:42 AM EDT [facility] Total Protein 4.8(L) 6.4 - 8.9 g/dL 10/09/2024 6:42 AM EDT [facility] Albumin 3.4(L) 3.5 - 5.7 g/dL 10/09/2024 6:42 AM EDT [facility] Bilirubin, Indirect 4.40(H) 0.00 - 1.10 mg/dL 10/09/2024 6:42 AM EDT [facility] Plasma 10/09/2024 4:59 AM EDT 10/09/2024 5:57 AM EDT Eileen Schroeder MD, PhD LAB BLOOD ORDERABLES Final Result Performing Organization Address [facility]/ZIP Co de Phone Number [facility] [address] * Magnesium (10/09/2024 4:59 AM EDT) Magnesium 1.8 1.5 - 2.5 mg/dL 10/09/2024 6:42 AM EDT [facility] Plasma 10/09/2024 4:59 AM EDT 10/09/2024 5:57 AM EDT Eileen Schroeder MD, PhD LAB BLOOD ORDERABLES Final Result Performing Organization Address [facility] de Phone Number [facility] [address] * (ABNORMAL) Renal Function Panel w/EGFR (10/09/2024 4:59 AM EDT) Sodium 134 133 - 146 mmol/L 10/09/2024 6:42 AM EDT [facility] Potassium 3.3(L) 3.5 - 5.3 mmol/L 10/09/2024 6:42 AM EDT [facility] Chloride 107 98 - 110 mmol/L 10/09/2024 6:42 AM EDT [facility] CO2 16(L) 21 - 33 mmol/L 10/09/2024 6:42 AM EDT [facility] Anion Gap 11 3 - 16 mmol/L 10/09/2024 6:42 AM EDT [facility] BUN 56(H) 7 - 25 mg/dL 10/09/2024 6:42 AM EDT [facility] Creatinine 2.98(H) 0.60 - 1.30 mg/dL 10/09/2024 6:42 AM EDT [facility] Glucose 112(H) 70 - 100 mg/dL 10/09/2024 6:42 AM EDT [facility] Calcium 9.0 8.6 - 10.3 mg/dL 10/09/2024 6:42 AM EDT [facility] Phosphorus 3.5 2.1 - 4.7 mg/dL 10/09/2024 6:42 AM EDT [facility] Albumin 3.4(L) 3.5 - 5.7 g/dL 10/09/2024 6:42 AM EDT [facility] Osmolality, Calculated 294 278 - 305 mOsm/kg 10/09/2024 6:42 AM EDT [facility] EGFR 26 10/09/2024 6:42 AM EDT [facility] Comment:As of 2021, the [...] LAB BLOOD ORDERABLES Final Result [facility] [address] [place] [facility] [place] [address], [facility] * (ABNORMAL) CBC (10/09/2024 4:59 AM EDT) WBC 4.6 3.8 - 10.8 10E3/uL 10/09/2024 6:21 AM EDT [facility] RBC 2.17(L) 4.20 - 5.80 10E6/uL 10/09/2024 6:21 AM EDT [facility] Hemoglobin 8.0(L) 13.2 - 17.1 g/dL 10/09/2024 6:21 AM EDT [facility] Hematocrit 21.8(L) 38.5 - 50.0 % 10/09/2024 6:21 AM EDT [facility] MCV 100.5(H) 80.0 - 100.0 fL 10/09/2024 6:21 AM EDT [facility] MCH 36.7(H) 27.0 - 33.0 pg 10/09/2024 6:21 AM EDT [facility] MCHC 36.5(H) 32.0 - 36.0 g/dL 10/09/2024 6:21 AM EDT [facility] RDW 18.1(H) 11.0 - 15.0 % 10/09/2024 6:21 AM EDT [facility] Platelets 36(L) 140 - 400 10E3/uL 10/09/2024 6:21 AM EDT [facility] Comment:Specimen checked for clots. None detected. MPV 8.3 7.5 - 11.5 fL 10/09/2024 6:21 AM EDT [facility] Whole Blood 10/09/2024 4:59 AM EDT 10/09/2024 5:56 AM EDT us Eileen Schroeder MD, PhD LAB BLOOD ORDERABLES Final Result [facility] [address] [place], [place] [address] * Renal Tx Recipient (10/09/2024 4:59 AM EDT) Renal Transplant Recipient The request and specimen(s) for this test have been received and transported to the [facility] at [address] [place] [address]. The [facility] [place] will report results directly to the client. 10/09/2024 7:26 AM EDT [facility] Blood 10/09/2024 4:59 AM EDT 10/09/2024 7:26 AM EDT us Aaron Gonzalez MD LAB BLOOD ORDERABLES Final Resu lt Performing Organization Address City/[facility]/ZIP Co de Phone Number [facility] [address] [facility]. [address] * Vancomycin, random (10/09/2024 4:59 AM EDT) Vancomycin Random 11.0 ug/mL 10/09/2024 6:33 AM EDT [facility] Comment:Reference range not established for this test. Plasma 10/09/2024 4:59 AM EDT 10/09/2024 5:56 AM EDT us Jodi Ortiz PharmD LAB BLOOD ORDERABLES Final Result Performing Organization Address [facility]/ZIP Co de Phone Number [facility] [address] [facility]. [address] * (ABNORMAL) CBC (10/08/2024 5:52 PM EDT) WBC 5.6 3.8 - 10.8 10E3/uL 10/08/2024 6:52 PM EDT [facility] RBC 2.38(L) 4.20 - 5.80 10E6/uL 10/08/2024 6:52 PM EDT [facility] Hemoglobin 8.3(L) 13.2 - 17.1 g/dL 10/08/2024 6:52 PM EDT [facility] Hematocrit 24.6(L) 38.5 - 50.0 % 10/08/2024 6:52 PM EDT [facility] MCV 103.2(H) 80.0 - 100.0 fL 10/08/2024 6:52 PM EDT [facility] MCH 34.7(H) 27.0 - 33.0 pg 10/08/2024 6:52 PM EDT [facility] MCHC 33.6 32.0 - 36.0 g/dL 10/08/2024 6:52 PM EDT [facility] RDW 18.5(H) 11.0 - 15.0 % 10/08/2024 6:52 PM EDT [facility] Platelets 39(L) 140 - 400 10E3/uL 10/08/2024 6:52 PM EDT [facility] Comment:CNV MPV 8.1 7.5 - 11.5 fL 10/08/2024 6:52 PM EDT [facility] Whole Blood 10/08/2024 5:52 PM EDT 10/08/2024 6:45 PM EDT Eileen Schroeder MD, PhD LAB BLOOD ORDERABLES Final Result Performing Organization Address [facility]/ZIP Co de Phone Number [facility] [address] * Transfuse RBC Has consent been [...] BLOOD ADMIN Final Result Performing Organization Address City/[facility]/ZIP Co de Phone Number EXTERNAL * (ABNORMAL) MMR(IgG) Panel (Measles, Mumps, Rubella) (10/08/2024 10:25 AM EDT) Mumps IgG Positive 10/08/2024 11:39 AM EDT [facility] MUMPS IGG NUM 99.00(H) 0.0 - 8.9 U/mL 10/08/2024 11:39 AM EDT [facility] Rubella IgG Scr Positive 10/08/2024 11:40 AM EDT [facility] RUB NUM 4.15(H) 0.00 - 0.89 INDEX 10/08/2024 11:40 AM EDT [facility] Rubeola Ab, IgG Positive 10/08/2024 11:39 AM EDT [facility] RUB IGG NUM 273.00(H) 0.00 - 13.40 U/mL 10/08/2024 11:39 AM EDT [facility] Serum 10/08/2024 10:2 5 AM EDT 10/08/2024 10:49 AM EDT Narrative [facility] - 10/08/2024 11:40 AM EDT Presence of detectable measles virus IgG antibodies. A positive result generally indicates exposure to measles virus or previous vaccination. Presence of detectable mumps virus IgG antibodies. A positive result generally indicates past exposure to mumps virus or previous vaccination. Sample is considered positive for IgG antibodies to rubella virus. Result [facility] Gerri Peterson MD LAB BLOOD ORDERABLES Final Resu lt Performing Organization Address [facility] Co de Phone Number [facility] [address] * (ABNORMAL) Hemoglobin A1C (10/08/2024 10:25 AM EDT) [facility] Hemoglobin A1C 3.7(L) 4.0 - 5.6 % 10/09/2024 1:22 PM EDT [facility] Comment: Hemoglobin A1c Interpretation [...] AM EDT 10/08/2024 10:51 AM EDT Result [facility] Gerri Peterson MD LAB BLOOD ORDERABLES Final Resu lt Performing Organization Address [facility] de Phone Number [facility] [address] [facility]. [address] * (ABNORMAL) Vitamin D 25 Hydroxy (10/08/2024 10:25 AM EDT) Vit D, 25-Hydroxy 7.1(L) 30.0 - 100.0 ng/mL 10/08/2024 11:36 AM EDT [facility] LAB Comment: Vitamin D deficiency has been defined by the [employer] (IOM) and an Endocrine Society [...] BLOOD ORDERABLES Final Resu lt [facility] [address] [place] [id number], [facility] * Iron Studies (Iron + TIBC) (10/08/2024 [...] BLOOD ORDERABLES Final Resu lt [facility] [address] * (ABNORMAL) Ferritin (10/08/2024 10:25 AM EDT) Ferritin 706.9(H) 23.9 - 336.2 ng/mL 10/08/2024 11:35 AM EDT [facility] Serum 10/08/2024 10:2 5 AM EDT 10/08/2024 10:49 AM EDT Gerri Peterson MD LAB BLOOD ORDERABLES Final Resu lt Performing Organization Address [facility]/ZIP Co de Phone Number [facility] [address] * QuantiFERON TB2 Ag (10/08/2024 10:25 AM EDT) QuantiFERON TB2 Ag Value 0.07 10/10/2024 10:41 AM EDT [facility] Plasma 10/08/2024 10:2 5 AM EDT 10/08/2024 11:05 AM EDT us Gerri Peterson MD LAB BLOOD ORDERABLES Final Resu lt Performing Organization Address City/[facility]/ZIP Co de Phone Number [facility] [address] * QuantiFERON TB1 Ag (10/08/2024 10:25 AM EDT) QuantiFERON TB1 Ag Value 0.06 10/10/2024 10:41 AM EDT [facility] Plasma 10/08/2024 10:2 5 AM EDT 10/08/2024 11:05 AM EDT Gerri Peterson MD LAB BLOOD ORDERABLES Final Resu lt [facility] [address] * QuantiFERON Nil (10/08/2024 10:25 AM EDT) QuantiFERON Nil 0.06 10:41 AM EDT [facility] Plasma 10/08/2024 10:2 5 AM EDT 10/08/2024 11:05 AM EDT Gerri Peterson MD LAB BLOOD ORDERABLES Final Resu lt [facility] [address] * QuantiFERON Mitogen (10/08/2024 10:25 AM EDT) QuantiFERON Interpretation Negative Negative 10/10/2024 10:41 AM EDT [facility] Comment:Negative result geovanny cates M. tuberculosis infection is NOT likely. Negative results do not preclude tuberculosis infection (especially in immunosuppressed patients). Negative results have a TB antigen minus Nil value less than 0.35 IU/mL. In cases with high suspicion of disease, retesting or additional testing with medical evaluation may be useful. QuantiFERON Mitogen 4.87 10/10 10:41 AM EDT [facility] Plasma 10/08/2024 10:2 5 AM EDT 10/08/2024 11:05 AM EDT Narrative [facility] - 10/10/2024 10:41 AM [...] BLOOD ORDERABLES Final Resu lt [facility] [address] * Reticulocyte Count, Auto (10/08/2024 7:41 AM EDT) Retic Ct Pct 1.35 0.50 - 2.00 % 10/08/2024 9:12 AM EDT [facility] Retic Ct Abs 26,190 25,000 - 90,000 /uL 10/08/2024 9:14 AM EDT [facility] Immature Retic Fract 0.37 0.09 - 0.56 10/08/2024 9:12 AM EDT [facility] Whole Blood 10/08/2024 7:41 AM EDT 10/08/2024 8:51 AM EDT us Angie Blanchard MD LAB BLOOD ORDERABLES Final Res ult Performing Organization Address [facility]/ZIP Co de Phone Number [facility] [address] [facility]. [address] * (ABNORMAL) Haptoglobin (10/08/2024 7:41 AM EDT) Haptoglobin <30(L) 44 - 215 mg/dL 10/08/2024 8:53 AM EDT [facility] Serum 10/08/2024 7:41 AM EDT 10/08/2024 7:51 AM EDT us Eileen Schroeder MD, PhD LAB BLOOD ORDERABLES Final Result [facility] [address] * (ABNORMAL) CBC - Post Transfusion (10/08/2024 7:41 AM EDT) WBC 3.7(L) 3.8 - 10.8 10E3/uL 10/08/2024 8:34 AM EDT [facility] RBC 1.94(L) 4.20 - 5.80 10E6/uL 10/08/2024 8:34 AM EDT [facility] Hemoglobin 7.1(L) 13.2 - 17.1 g/dL 10/08/2024 8:34 AM EDT [facility] Hematocrit 20.0(L) 38.5 - 50.0 % 10/08/2024 8:34 AM EDT [facility] MCV 103.1(H) 80.0 - 100.0 fL 10/08/2024 8:34 AM EDT [facility] MCH 36.5(H) 27.0 - 33.0 pg 10/08/2024 8:34 AM EDT [facility] MCHC 35.4 32.0 - 36.0 g/dL 10/08/2024 8:34 AM EDT [facility] RDW 17.2(H) 11.0 - 15.0 % 10/08/2024 8:34 AM EDT [facility] Platelets 37(L) 140 - 400 10E3/uL 10/08/2024 8:34 AM EDT [facility] Comment: Specimen checked for clots. None detected. Slide Reviewed for PLT Clumps. None Seen. _Platelet Morphology Normal _Platelets Appear Decreased MPV 8.7 7.5 - 11.5 fL 10/08/2024 8:34 AM EDT [facility] Whole Blood 10/08/2024 7:41 AM EDT 10/08/2024 7:52 AM EDT Narrative [facility] - 10/08/2024 8:34 AM EDT Post-transfusion Eileen Schroeder MD, PhD LAB BLOOD ORDERABLES Final Result [facility] [address] [place] [address], [facility] * Antibody Screen (10/08/2024 7:41 AM EDT) Antibody Screen Negative 10/08/2024 8:26 AM EDT [facility] Blood 10/08/2024 7:41 AM EDT 10/08/2024 7:57 AM EDT [facility] - 10/08/2024 8:32 AM EDT Testing performed by [facility] Transfusion Service Eileen Schroeder MD, PhD BLOOD BANK TEST ORDER PAL Final Result Performing Organization Address [facility]/ZIP Co de Phone Number [facility] [address] [facility]. [address] * ABO/Rh (10/08/2024 7:41 AM EDT) ABO Grouping O 10/08/2024 8:14 AM EDT [facility] Rh Type Positive 10/08/2024 8:14 AM EDT [facility] Blood 10/08/2024 7:41 AM EDT 10/08/2024 7:57 AM EDT Eileen Schroeder MD, PhD BLOOD BANK TEST ORDER PAL Final Result Performing Organization Address [facility] Co de Phone Number [facility] [address] [facility]. [address] * (ABNORMAL) Lactate dehydrogenase (10/08/2024 5:36 AM EDT) LD 102(L) 110 - 270 U/L 10/08/2024 8:20 AM EDT [facility] Plasma 10/08/2024 5:36 AM EDT 10/08/2024 7:58 AM EDT Angie Blanchard MD LAB BLOOD ORDERABLES Final Res ult [facility] [address] [facility]. [address] * (ABNORMAL) Protime-INR (10/08/2024 5:36 AM EDT) Protime 26.9(H) 12.1 - 15.1 seconds 10/08/2024 6:11 AM EDT [facility] INR 2.4(H) 0.9 - 1.1 10/08/2024 6:11 AM EDT [facility] Comment: RECOMMENDED THERAPEUTIC RANGES USING INR : Stable oral anticoagulant therapy: 2.0 - 3.0 Mechanical prosthetic heart valve: 2.5 - 3.5 Recurrent acute myocardial infarction: 2.5 - 3.5 Plasma 10/08/2024 5:36 AM EDT 10/08/2024 5:52 AM EDT Eileen Schroeder MD, PhD LAB BLOOD ORDERABLES Final Result Performing Organization Address [facility] Co de Phone Number [facility] [address] * (ABNORMAL) Hepatic Function Panel (10/08/2024 5:36 AM EDT) Total Bilirubin 7.7(H) 0.0 - 1.5 mg/dL 10/08/2024 6:25 AM EDT [facility] Bilirubin, Direct 4.28(H) 0.00 - 0.40 mg/dL 10/08/2024 6:25 AM EDT [facility] AST 34 13 - 39 U/L 10/08/2024 6:25 AM EDT [facility] ALT 16 7 - 52 U/L 10/08/2024 6:25 AM EDT [facility] Alkaline Phosphatase 103 36 - 125 U/L 10/08/2024 6:25 AM EDT [facility] Total Protein 4.7(L) 6.4 - 8.9 g/dL 10/08/2024 6:25 AM EDT [facility] Albumin 3.5 3.5 - 5.7 g/dL 10/08/2024 6:25 AM EDT [facility] Bilirubin, Indirect 3.42(H) 0.00 - 1.10 mg/dL 10/08/2024 6:25 AM EDT [facility] Plasma 10/08/2024 5:36 AM EDT 10/08/2024 5:52 AM EDT Eileen Schroeder MD, PhD LAB BLOOD ORDERABLES Final Result Performing Organization Address [facility]/ZIP Co de Phone Number [facility] [address] * Magnesium (10/08/2024 5:36 AM EDT) Magnesium 1.9 1.5 - 2.5 mg/dL 10/08/2024 6:25 AM EDT [facility] Plasma 10/08/2024 5:36 AM EDT 10/08/2024 5:52 AM EDT us Eileen Schroeder MD, PhD LAB BLOOD ORDERABLES Final Result [facility] [address] [facility]. [address] * (ABNORMAL) Renal Function Panel w/EGFR (10/08/2024 5:36 AM EDT) Sodium 135 133 - 146 mmol/L 10/08/2024 6:25 AM EDT [facility] Potassium 3.2(L) 3.5 - 5.3 mmol/L 10/08/2024 6:25 AM EDT [facility] Chloride 106 98 - 110 mmol/L 10/08/2024 6:25 AM EDT [facility] CO2 17(L) 21 - 33 mmol/L 10/08/2024 6:25 AM EDT [facility] Anion Gap 12 3 - 16 mmol/L 10/08/2024 6:25 AM EDT [facility] BUN 61(H) 7 - 25 mg/dL 10/08/2024 6:25 AM EDT [facility] Creatinine 3.10(H) 0.60 - 1.30 mg/dL 10/08/2024 6:25 AM EDT [facility] Glucose 106(H) 70 - 100 mg/dL 10/08/2024 6:25 AM EDT [facility] Calcium 9.0 8.6 - 10.3 mg/dL 10/08/2024 6:25 AM EDT [facility] Phosphorus 4.0 2.1 - 4.7 mg/dL 10/08/2024 6:25 AM EDT [facility] Albumin 3.5 3.5 - 5.7 g/dL 10/08/2024 6:25 AM EDT [facility] Osmolality, Calculated 298 278 - 305 mOsm/kg 10/08/2024 6:25 AM EDT [facility] EGFR 25 10/08/2024 6:25 AM EDT [facility] Comment:As of 2021, the [...] LAB BLOOD ORDERABLES Final Result [facility] [address] * (ABNORMAL) CBC (10/08/2024 5:36 AM EDT) WBC 3.2(L) 3.8 - 10.8 10E3/uL 10/08/2024 6:41 AM EDT [facility] RBC 1.86(L) 4.20 - 5.80 10E6/uL 10/08/2024 6:41 AM EDT [facility] Hemoglobin 6.9(L) 13.2 - 17.1 g/dL 10/08/2024 6:41 AM EDT [facility] Hematocrit 18.9(L) 38.5 - 50.0 % 10/08/2024 6:41 AM EDT [facility] MCV 101.6(H) 80.0 - 100.0 fL 10/08/2024 6:41 AM EDT [facility] MCH 36.9(H) 27.0 - 33.0 pg 10/08/2024 6:41 AM EDT [facility] MCHC 36.3(H) 32.0 - 36.0 g/dL 10/08/2024 6:41 AM EDT [facility] RDW 17.0(H) 11.0 - 15.0 % 10/08/2024 6:41 AM EDT [facility] Platelets 34(L) 140 - 400 10E3/uL 10/08/2024 6:41 AM EDT [facility] Comment: Specimen checked for clots. None detected. Slide Reviewed for PLT Clumps. None Seen. Platelet Estimate Decreased 10/08/2024 6:41 AM EDT [facility] MPV 8.4 7.5 - 11.5 fL 10/08/2024 6:41 AM EDT [facility] Whole Blood 10/08/2024 5:36 AM EDT 10/08/2024 5:53 AM EDT Narrative [facility] - 10/08/2024 6:41 AM EDT Peripheral blood smear was scanned per review criteria approved by the laboratory medical laboratory manager. us Eileen Schroeder MD, PhD LAB BLOOD ORDERABLES Final Result [facility] [address] * Vancomycin, random (10/08/2024 5:36 AM EDT) Vancomycin Random 16.0 ug/mL 10/08/2024 6:20 AM EDT [facility] Comment:Reference range not established for this test. Plasma 10/08/2024 5:36 AM EDT 10/08/2024 5:52 AM EDT us Jodi FreireD LAB BLOOD ORDERABLES Final Result Performing Organization Address [facility]/ZIP Co de Phone Number [facility] [address] * Urine Drug Confirmation (10/07/2024 10:50 PM EDT) BARBITURATES NOT PRESENT 10/09/2024 1:33 PM EDT [facility] BENZODIAZEPINES PRESENT 5 1:33 PM EDT [facility] Nordiazepam 3 ng/mL 10/09/2024 1:33 PM EDT [facility] Temazepam 6 ng/mL 10/09/2024 1:33 PM EDT [facility] CANNABINOIDS NOT PRESENT 10/09/2024 1:33 PM EDT [facility] NOVELTY MAKER STIMULANTS NOT PRESENT 1:33 PM EDT [facility] OPIOID ANALGESICS PRESENT 025 1:33 PM EDT [facility] Oxycodone 300 ng/mL 10/09/2024 1:33 PM EDT [facility] Oxymorphone 32 ng/mL 10/09/2024 1:33 PM EDT [facility] Tramadol >1000 ng/mL 10/09/2024 1:33 PM EDT [facility] OPIOID ANTAGONISTS NOT PRESENT 10/09 1:33 PM EDT [facility] SEDATIVES/MUSCLE RELAXANTS NOT PRESENT 10/09/2024 1:33 PM EDT [facility] TRICYCLIC ANTIDEPRESSANTS NOT PRESENT 10/09/2024 1:33 PM EDT [facility] Urine 10/07/2024 10:5 0 PM EDT 10/08/2024 3:00 AM EDT Gerri Peterson MD URINE ORDERABLES Final Result Performing Organization Address City/State/[facility] Co de Phone Number [facility] [address] * Giardia Cryptosporidium Antigens (10/07/2024 10:50 PM EDT) Cryptosporidium Ag Negative Negative 2024 7:59 AM EDT [facility]ALTH LAB Giardia Ag Negative Negative 10/08/2024 7:59 AM EDT [facility] Comment: Detection of Giardia and Cryptosporidium antigen is more sensitive and specific than microscopy. Because antigens are shed continuously, repeat testing is rarely warranted. Feces 10/07/2024 10:5 0 PM EDT 10/08/2024 1:53 AM EDT Comment:F us Bisi Hernandez DO MICROBIOLOGY - GENERAL ORDERABLE S Final Result [facility] [address] [place] [address], [facility] * (ABNORMAL) Urine Drug Screen Reflex to Confirmation (10/07/2024 10:50 PM EDT) Amphetamine, 500 ng/mL Cutoff Negative Negative 10/08/2024 3:00 AM EDT [facility] Barbiturates UR, 300 ng/mL Cutoff Negative Negative 10/08/2024 3:00 AM EDT [facility] Buprenorphine, 5 ng/mL Cutoff Negative Negative 10/08/2024 3:00 AM EDT [facility] Benzodiazepines UR, 300 ng/mL Cutoff Negative Negative 10/08/2024 3:00 AM EDT [facility] Cocaine UR, 300 ng/mL Cutoff Negative Negative 10/08/2024 3:00 AM EDT [facility] Methadone, UR, 300 ng/mL Cutoff Negative Negative 10/08/2024 3:00 AM EDT [facility] Opiates UR, 300 ng/mL Cutoff Negative Negative 10/08/2024 3:00 AM EDT [facility] Oxycodone, 100 ng/mL Cutoff Presumptive Positive(A) Negative 10/08/2024 3:00 AM EDT [facility] Tricyclic Antidepressants, 300 ng/mL Cutoff Negative Negative 10/08/2024 3:00 AM EDT [facility] Comment:This test has been d eveloped and its performance characteristics determined by [facility] which is certified [...] Cutoff Negative Negative 10/08/2024 3:00 AM EDT [facility] Comment:This is a screening method only and may be associated with false positive and/or false negative results. Results are not definitive without additional confirmatory testing by mass spectrometry. Fentanyl, 2 ng/mL Cutoff Negative Negative 10/08/2024 3:00 AM EDT [facility] Comment:This test has been d eveloped and its performance characteristics determined by [facility] which is certified [...] PM EDT 10/08/2024 2:08 AM EDT Narrative [facility] - 10/08/2024 3:00 AM EDT CONFIRMATION TO FOLLOW Gerri Peterson MD URINE ORDERABLES Final Result [facility] [address] * Comprehensive Drug Screen (10/07/2024 10:50 PM EDT) Creatinine, Ur CANCELED mg/dL 10/08/2024 7:09 AM EDT [facility] Comment:The released value 8 7.30 was canceled by YAQUELIN on 10/08/2024 07:09 BARBITURATES CANCELED [facility] Butalbital CANCELED [facility] Phenobarbital CANCELED [facility] Secobarbital [facility]CELED [facility] BENZODIAZEPINES CANCELED [facility] Alprazolam CANCELED [facility] Clonazepam CANCELED [facility] Diazepam CANCELED [facility] Alpha-Hydroxyalprazo mcknight CANCELED [facility] Lorazepam CANCELED [facility] Midazolam CANCELED [facility] Nordiazepam CANCELED [facility] Oxazepam CANCELED [facility] Temazepam CANCELED [facility] CANNABINOIDS CANCELED [facility] THC-COOH CANCELED [facility] NOVELTY MAKER STIMULANTS CANCELED [facility] Cocaine Metabolite(benzoylec gonine) CANCELED [facility] Amphetamine CANCELED [facility] Methamphetamine [facility] MDA CANCELED [facility] MDEA CANCELED [facility] Phencyclindine (PCP) CANCELED [facility] OPIOID ANALGESICS [facility]CELED [facility] Heroin Metabolite(6-RAMONA) CANCELED [facility] Codeine CANCELED [facility] Morphine CANCELED [facility] Hydrocodone [facility]CELED [facility] Hydromorphone [facility]EL[facility] Oxycodone CANCELED [facility] Oxymorphone [facility] Meperidine [facility]ED [facility] Normeperidine [facility]ED [facility] Methadone CANCELED [facility] Methadone Metabolite (EDDP) CANCELED [facility] Tramadol CANCELED [facility] Fentanyl CANCELED [facility] Norfentanyl [facility] Sufentanil [facility] OPIOID ANTAGONISTS CANCELED [facility] Buprenorphine CAN[facility]ELED [facility] Norbuprenorphine CANCELED [facility] Naltrexone CANCELED [facility] Naloxone [facility]CELED [facility] SEDATIVES/MUSCLE RELAXANTS CANCELED [facility] Carisoprodol [facility]ELED [facility] Meprobamate [facility]ELED [facility] TRICYCLIC ANTIDEPRESSANTS CANCELED [facility] Amitriptyline [facility] Clomipramine [facility]ED [facility] Desipramine [facility]ED [facility] Doxepin CANCELED [facility] Imipramine CANCELED [facility] Nortriptyline [facility]ELED [facility] Urine Creatinine CANCELED mg/dL [facility] Nitrite CANCELED [facility] Glutaraldehyde CANCELED [facility] pH CANCELED 10/08/2024 7:09 AM EDT [facility]ALTH LAB Comment:The released value 5 .6 was canceled by YAQUELIN on 10/08/2024 07:09 Specific [place] CANCELED 10/09/19 7:09 AM EDT [facility] Comment:The released value 1 .009 was canceled by MABLEE on 10/08/2024 07:09 Bleach CANCELED [facility] Pyridinium Chlorochromate CANCELED [facility] Urine 10/07/2024 10:5 0 PM EDT 10/08/2024 2:07 AM EDT Narrative [facility] - 10/08/2024 7:09 AM EDT See accn [id number] Gerri Peterson MD URINE ORDERABLES Edited Result - Final Performing Organization Address City/[facility]/ZIP Co de Phone Number [facility] [address] [facility]. [address] * Ova and Parasite Comprehensive w/ Giardia/Crypto (10/07/2024 10:50 PM EDT) O & P Method: Concentration and Trichrome Stain [facility] Results No Amoeba, Ova, Or Parasites Seen. -- O and P examination of additional specimens is recommended only for symptomatic patients, immunosuppressed patients or those with an appropriate travel history. [facility] Feces FECES / Unknown 10/07/2024 1 0:50 PM EDT 10/08/2024 1:53 AM EDT Comment:F Bisi Hernandez DO MICROBIOLOGY - GENERAL ORDERABLE S Final Result Performing Organization Address [facility]/ZIP Co de Phone Number [facility] [address] [facility]. [address] * Enteric Pathogen Panel (10/07/2024 10:50 PM EDT) Pathologist [facility] Campylobacter Group (C. ecoli, C. jejuni, C. trino) Not Detected Not Detected 10/08/2024 4:40 AM EDT [facility] Salmonella species Not Detected Not Detected 10/08/2024 4:40 AM EDT [facility] Shigella species Not Detected Not Detected 10/08/2024 4:40 AM EDT [facility] Vibrio Group (Vibrio cholerae, Vibrio parahaemolyticus) Not Detected Not Detected 10/08/2024 4:40 AM EDT [facility] Yersinia enterocolitica Not Detected Not Detected 10/08/2024 4:40 AM EDT [facility] Shiga toxin 1 Not Detected Not Detected 10/08/2024 4:40 AM EDT [facility] Shiga toxin 2 Not Detected Not Detected 10/08/2024 4:40 AM EDT [facility] Norovirus Not Detected Not Detected 10/08/2024 4:40 AM EDT [facility] Rotavirus Not Detected Not Detected 10/08/2024 4:40 AM EDT [facility] Comment: The Enteric Pathogen [...] ORDERABLE S Final Result Performing Organization Address [facility] Co de Phone Number [facility] [address] * Hepatitis C Antibody (10/07/2024 6:38 PM EDT) HCV Ab Nonreactive Nonreactive 10/07/2024 7:56 PM EDT [facility] Comment:Health Department no tified in accordance with reportable infectious disease guidelines. Serum 10/07/2024 6:38 PM EDT 10/07/2024 6:52 PM EDT Narrative [facility] - 10/07/2024 7:56 PM EDT Antibodies to HCV not detected; does not exclude the possibility of exposure to HCV. Gerri Peterson MD LAB BLOOD ORDERABLES Final Resu lt [facility] [address] [facility]. [address] * Hepatitis B Surface Antibody, Quantitati (10/07/2024 6:38 PM EDT) Hep B S Ab Nonreactive Nonreactive 10/07/2024 8:00 PM EDT [facility] HBSAB NUMBER 7.88 0.00 - 7.99 mIU/mL 10/07/2024 8:00 PM EDT [facility] Serum 10/07/2024 6:38 PM EDT 10/07/2024 6:52 PM EDT [facility] - 10/07/2024 8:00 PM EDT Individual is considered not immune to HBV infection. Gerri Peterson MD LAB BLOOD ORDERABLES Final Resu lt Performing Organization Address [facility]/ZIP Co de Phone Number [facility] [address] [facility]. [address] * Hepatitis B surface antigen (10/07/2024 6:38 PM EDT) Hep B Surface Ag Nonreactive Nonreactive 10/07/2024 7:51 PM EDT [facility] Comment:Health Department no tified in accordance with reportable infectious disease guidelines. Serum 10/07/2024 6:38 PM EDT 10/07/2024 6:52 PM EDT [facility] - 10/07/2024 7:51 PM EDT Specimen is considered negative for HBsAg. Gerri Peetrson MD LAB BLOOD ORDERABLES Final Resu lt Performing Organization Address [facility] Co de Phone Number [facility] [address] [facility]. [address] * Hepatitis A Antibody Total (10/07/2024 6:38 PM EDT) Anti-HAV Total (IgG + IgM) Nonreactive 10/07/2024 7:53 PM EDT [facility] Serum 10/07/2024 6:38 PM EDT 10/07/2024 6:52 PM EDT [facility] - 10/07/2024 7:53 PM EDT HAV antibodies not detected Gerri Peterson MD LAB BLOOD ORDERABLES Final Resu lt [facility] [address] * Hepatitis A IgM (10/07/2024 6:38 PM EDT) Hep A IgM Nonreactive Nonreactive 10/07/2024 7:46 PM EDT [facility] Serum 10/07/2024 6:38 PM EDT 10/07/2024 6:52 PM EDT Narrative [facility] - 10/07/2024 7:46 PM EDT IgM anti-HAV not detected. Does not exclude the possibility of exposure to or infection with HAV. Levels of IgM anti-HAV may be below the cut-off in early infection. us Gerri Peterson MD LAB BLOOD ORDERABLES Final Resu lt [facility] [address] [facility]. [address] * (ABNORMAL) Lipid Profile (10/07/2024 6:37 PM EDT) Non-HDL Cholesterol, Calculated See Note 0 - 129 mg/dL 10/07/2024 7:42 PM EDT [facility] Comment: Desirable: < 130 mg/dL Above Desirable: 130-159 mg/dL Borderline High: 160-189 mg/dL High: 190-219 mg/dL Very High: > 219 mg/dL Unable to calculate result either because contributing result(s) are outside of reportable range or are not available. Cholesterol, Total <25 0 - 200 mg/dL 10/07/2024 7:42 PM EDT [facility] Triglycerides 30 10 - 149 mg/dL 10/07/2024 7:42 PM EDT [facility] HDL 4(L) 60 - 92 mg/dL 10/07/2024 7:42 PM EDT [facility] Comment: LIPID PROFILE INTERPRETATION [...] Cholesterol See Note mg/dL 7:42 PM EDT [facility] Comment:Unable to calculate result either because contributing result(s) are outside of reportable range or are not available. Plasma 10/07/2024 6:37 PM EDT 10/07/2024 7:06 PM EDT Narrative [facility] - 10/07/2024 7:42 PM EDT LDL cholesterol calculated using the Friedewald equation. us Gerri Peterson MD LAB BLOOD ORDERABLES Final Resu lt [facility] [address] * (ABNORMAL) Alpha 1 Antitrypsin AAT Quant & Mutation (10/07/2024 6:37 PM EDT) A-1 Antitrypsin 99(L) 101 - 187 mg/dL 10/09/2024 4:28 AM EDT [facility] A-1 Antitrypsin Pheno Comment 10/10/2024 4:05 PM EDT [facility] Comment: A1A Phenotype is consistent with a heterozygous phenotype consisting of one M (normal) allele and one allele that cannot be identified at this time. The unknown allele is not consistent with Z (deficient), S (deficient), or F (deficient). MM Phenotype is considered to be normal , producing normal serum levels of [id number] inhibitor and not associated with clinical disease. [...] PM EDT 10/10/2024 4:08 PM EDT Narrative [facility] - 10/10/2024 4:08 PM EDT PERFORMED AT: [facility] [address] [id number] SUPERVISOR ENDLESS TRACK VEHICLE: Bassam Khalil, PhD PHONE: [phone] PERFORMED AT: [facility] [address] [id number] SUPERVISOR ENDLESS TR[employer] VEHICLE: Mandy Abdul MD PHONE: [phone] Gerri Peterson MD LAB BLOOD ORDERABLES Final Resu lt Performing Organization Address [facility] Co de Phone Number [facility] [address] [place] [address] * (ABNORMAL) CMV IgG Antibody (10/07/2024 6:37 PM EDT) CMV IgG Positive(A ) Negative 10/07/2024 8:26 PM EDT [facility] CMV IGG NUM 8.40(H) 0.00 - 0.59 U/mL 10/07/2024 8:26 PM EDT [facility] Serum 10/07/2024 6:37 PM EDT 10/07/2024 6:50 PM EDT Gerri Peterson MD LAB BLOOD ORDERABLES Final Resu lt Performing Organization Address City/[facility] Co de Phone Number [facility] [address] [place] [address], [place] * HIV-1 and HIV-2 Antibodies w Reflex (10/07/2024 6:37 PM EDT) Pathologist [facility] HIV 1+2 AB/AGN Nonreactive Nonreactive 10/07/2024 7:54 PM EDT [facility] Serum 10/07/2024 6:37 PM EDT 10/07/2024 7:06 PM EDT Narrative [facility] - 10/07/2024 7:54 PM EDT \HIVRNR Gerri Peterson MD LAB BLOOD ORDERABLES Final Resu lt [facility] [address] [facility]. [address] * TSH (Thyroid Stimulating Hormone) (10/07/2024 6:37 PM EDT) Pathologist [facility] TSH 0.81 0.45 - 4.12 uIU/mL 10/07/2024 8:17 PM EDT [facility] Serum 10/07/2024 6:37 PM EDT 10/07/2024 6:50 PM EDT Gerri Peterson MD LAB BLOOD ORDERABLES Final Resu lt [facility] [address] [place] [address]. [address] * Katie-Watkins virus early antigen antibody, IgG (10/07/2024 6:37 PM EDT) Pathologist [facility] EBV Early Antigen Ab, IgG <9.0 0.0 - 8.9 U/mL 10/09/2024 2:16 PM EDT [facility] Comment: Negative < 9.0 Equivocal 9.0 - 10.9 Positive >10.9 Serum Frozen 10/07/2024 6:37 PM EDT 10/09/2024 3:07 PM EDT Narrative [facility] - 10/09/2024 3:07 PM EDT [facility]: [facility] [address] [place], [place] [id number] SUPERVISOR ENDLESS TRACK VEHICLE: Bassam Khalil, PhD PHONE: [phone] Gerri Peterson MD LAB BLOOD ORDERABLES Final Resu lt Performing Organization Address [facility] Co de Phone Number [facility] [address] [place] [address], [facility] * (ABNORMAL) Varicella zoster antibody, IgG (10/07/2024 6:37 PM EDT) Varicella IgG Positive( A) Negative S/CO 10/07/2024 8:34 PM EDT [facility] Comment:Result indicates the presence [...] - 0.99 S/CO 10/07/2024 8:34 PM EDT [facility] Serum 10/07/2024 6:37 PM EDT 10/07/2024 6:50 PM EDT Gerri Peterson MD LAB BLOOD ORDERABLES Final Resu lt Performing Organization Address [facility] Co de Phone Number [facility] [address] [facility] [place] [address], [facility] * Toxoplasma gondii antibody, IgG (10/07/2024 6:37 PM EDT) Toxoplasma Gondii IgG <3.0 0.0 - 7.1 IU/mL 10/09/2024 7:53 AM EDT [facility] Comment: Negative <7.2 Equivocal 7.2 - 8.7 Positive >8.7 Serum 10/07/2024 6:37 PM EDT 10/09/2024 8:07 AM EDT Narrative [facility] - 10/09/2024 8:07 AM EDT [facility]FORMED AT: [facility] [address] [place], [place] [id number] SUPERVISOR ENDLESS TR[employer] VEHICLE: Bassam Khalil, PhD PHONE: [phone] Gerri Peterson MD LAB BLOOD ORDERABLES Final Resu lt Performing Organization Address City/[facility]/ZIP Co de Phone Number [facility] [address] [facility]. [address] * Syphilis Screening (Trepia) (10/07/2024 6:37 PM EDT) Treponema Pallidum Negative Negative 10/07/2024 8:27 PM EDT [facility] Comment: No serological evidence of infection with Treponema pallidum (incubating or early primary syphilis cannot be excluded). Serum 10/07/2024 6:37 PM EDT 10/07/2024 6:50 PM EDT us Gerri Peterson MD LAB BLOOD ORDERABLES Final Resu lt Performing Organization Address [facility] Co de Phone Number [facility] [address] [facility]. [address] * Strongyloides Ab (10/07/2024 6:37 PM EDT) Pathologist [facility] Strongyloides Ab Negative Negative 10/11/19 11:51 AM EDT [facility] Serum 10/07/2024 6:37 PM EDT 10/10/2024 12:07 PM EDT Narrative [facility] - 10/10/2024 12:07 PM EDT PERFORMED AT: [facility] [address] [id number] SUPERVISOR ENDLESS TR[employer] VEHICLE: Mandy Abdul MD PHONE: [phone] Gerri Peterson MD LAB BLOOD ORDERABLES Final Resu lt Performing Organization Address City/[facility] Co de Phone Number [facility]. [address] * Phosphatidylethanol Confirmation, B (10/07/2024 6:37 PM EDT) PETH 16:0/18.1 (POPETH) <10 Cutoff: 10 ng/mL 10/10/2024 10:42 AM EDT [facility] Comment: Phosphatidylethanol (PEth) homologues [...] Cutoff: 10 ng/mL 10/10/2024 10:42 AM EDT [facility] Comment: PEth 16:0/18:2 (PLPEth) Reference ranges are not well established PEth Interpretation Negative. 10/10 10:42 AM EDT [facility] Comment: ADDITIONAL INFORMATION This report is intended for use in clinical monitoring and management of patients. It is not intended for use in employment-related testing. This test was developed and its performance characteristics determined by [facility] in a manner consistent with CLIA requirements. This test has not been cleared or approved by the U.S. Food and Drug Administration. Test Performed by: [facility] - [address] [address] Instrument Lens Grinder Apprentice: Kathy Ortiz Ph.D.; CLIA# [id number] Whole Blood 10/07/2024 6:37 PM EDT 10/10/2024 10:42 AM EDT us Gerri Peterson MD LAB BLOOD ORDERABLES Final Resu lt [facility] [address] [place] [address], [facility] * (ABNORMAL) MMR(IgG) Panel (Measles, Mumps, Rubella) (10/07/2024 6:37 PM EDT) Mumps IgG Positive 10/07/2024 8:26 PM EDT [facility] MUMPS IGG NUM 77.80(H) 0.0 - 8.9 U/mL 10/07/2024 8:26 PM EDT [facility] Rubella IgG Scr Positive 10/07/2024 8:28 PM EDT [facility] RUB NUM 3.04(H) 0.00 - 0.89 INDEX 10/07/2024 8:28 PM EDT [facility] Rubeola Ab, IgG Positive 10/07/2024 8:26 PM EDT [facility] RUB IGG NUM 192.00(H) 0.00 - 13.40 U/mL 10/07/2024 8:26 PM EDT [facility] Serum 10/07/2024 6:37 PM EDT 10/07/2024 6:50 PM EDT Narrative [facility] - 10/07/2024 8:28 PM EDT Presence of detectable measles virus IgG antibodies. A positive result generally indicates exposure to measles virus or previous vaccination. Presence of detectable mumps virus IgG antibodies. A positive result generally indicates past exposure to mumps virus or previous vaccination. Sample is considered positive for IgG antibodies to rubella virus. Result [facility] Gerri Peterson MD LAB BLOOD ORDERABLES Final Resu lt [facility] [address] * IgA (10/07/2024 6:37 PM EDT) IgA 227.0 70.0 - 400.0 mg/dL 10/08/2024 11:07 AM EDT [facility] Comment:Please interpret the se findings in conjunction with clinical findings, protein electrophoresis, and immunotyping/immunofixation results. Serum 10/07/2024 6:37 PM EDT 10/07/2024 6:50 PM EDT Gerri Peterson MD LAB BLOOD ORDERABLES Final Resu lt Performing Organization Address City/[facility]/ZIP Co de Phone Number [facility] [address] [facility]. [address] * Ethanol, Serum (10/07/2024 6:37 PM EDT) Ethanol <10 0 - 10 mg/dL 10/07/2024 8:36 PM EDT [facility] Serum 10/07/2024 6:37 PM EDT 10/07/2024 6:50 PM EDT Gerri Peterson MD LAB BLOOD ORDERABLES Final Resu lt Performing Organization Address [facility] Co de Phone Number [facility] [address] [facility]. [address] * ABO/Rh - Second (10/07/2024 6:37 PM EDT) ABO Grouping O 10/07/2024 7:16 PM EDT [facility] Rh Type Positive 10/07/2024 7:16 PM EDT [facility] Blood 10/07/2024 6:37 PM EDT 10/07/2024 6:56 PM EDT Narrative [facility] - 10/07/2024 7:18 PM EDT This is not a duplicate order. It is required that ABO be drawn twice for LIVER TRANSPLANT Gerri Peterson MD BLOOD BANK TEST ORDERABLES Denisse l Result Performing Organization Address [facility]/ZIP Co de Phone Number [facility] [address] [facility]. [address] * ABO/Rh- Initial (10/07/2024 6:37 PM EDT) ABO Grouping O 10/07/2024 7:59 PM EDT [facility] Rh Type Positive 10/07/2024 7:59 PM EDT [facility] Blood 10/07/2024 6:37 PM EDT 10/07/2024 7:25 PM EDT Gerri Peterson MD BLOOD BANK TEST ORDERABLES Denisse l Result [facility] [address] [place] [address], [facility] * X-ray Mandible minimum 4-views (10/07/2024 [...] EXAM: US ABDOMEN COMPLETE EXAM: US DUPLEX [id number] COMPLETE INDICATION: elevated bilirubin COMPARISON: Ultrasound and [...] EXAM: US ABDOMEN COMPLETE EXAM: US DUPLEX [id number] COMPLETE INDICATION: elevated bilirubin COMPARISON: Ultrasound and [...] EDT us Bisi Hernandez DO [facility] [place] ORDERABLES Final Result * US Duplex [id number]-[id number] Comp (10/07/2024 3:48 PM EDT) Anatomical Region [...] EXAM: US ABDOMEN COMPLETE EXAM: US DUPLEX [id number] COMPLETE INDICATION: elevated bilirubin COMPARISON: Ultrasound and [...] EXAM: US ABDOMEN COMPLETE EXAM: US DUPLEX [id number] COMPLETE INDICATION: elevated bilirubin COMPARISON: Ultrasound and [...] BLOOD ORDERABLES Final Result Performing Organization Address City/State/[facility] Co de Phone Number [facility] [address] * (ABNORMAL) Hepatic Function Panel (10/07/2024 6:00 AM EDT) Total Bilirubin 9.7(H) 0.0 - 1.5 mg/dL 10/07/2024 7:10 AM EDT [facility] Bilirubin, Direct 5.21(H) 0.00 - 0.40 mg/dL 10/07/2024 7:10 AM EDT [facility] AST 39 13 - 39 U/L 10/07/2024 7:10 AM EDT [facility] ALT 18 7 - 52 U/L 10/07/2024 7:10 AM EDT [facility] Alkaline Phosphatase 98 36 - 125 U/L 10/07/2024 7:10 AM EDT [facility] Total Protein 4.8(L) 6.4 - 8.9 g/dL 10/07/2024 7:10 AM EDT [facility] Albumin 3.6 3.5 - 5.7 g/dL 10/07/2024 7:10 AM EDT [facility] Bilirubin, Indirect 4.49(H) 0.00 - 1.10 mg/dL 10/07/2024 7:10 AM EDT [facility] Plasma 10/07/2024 6:00 AM EDT 10/07/2024 6:39 AM EDT us iEleen Schroeder MD, PhD LAB BLOOD ORDERABLES Final Result Performing Organization Address [facility]/ZIP Co de Phone Number [facility] [address] * Magnesium (10/07/2024 6:00 AM EDT) Magnesium 1.7 1.5 - 2.5 mg/dL 10/07/2024 7:10 AM EDT [facility] Plasma 10/07/2024 6:00 AM EDT 10/07/2024 6:39 AM EDT us Eileen Schroeder MD, PhD LAB BLOOD ORDERABLES Final Result Performing Organization Address [facility] de Phone Number [facility] [address] * (ABNORMAL) Renal Function Panel w/EGFR (10/07/2024 6:00 AM EDT) Sodium 132(L) 133 - 146 mmol/L 10/07/2024 7:10 AM EDT [facility] Potassium 3.9 3.5 - 5.3 mmol/L 10/07/2024 7:10 AM EDT [facility] Chloride 103 98 - 110 mmol/L 10/07/2024 7:10 AM EDT [facility] CO2 19(L) 21 - 33 mmol/L 10/07/2024 7:10 AM EDT [facility] Anion Gap 10 3 - 16 mmol/L 10/07/2024 7:10 AM EDT [facility] BUN 64(H) 7 - 25 mg/dL 10/07/2024 7:10 AM EDT [facility] Creatinine 3.38(H) 0.60 - 1.30 mg/dL 10/07/2024 7:10 AM EDT [facility] Glucose 111(H) 70 - 100 mg/dL 10/07/2024 7:10 AM EDT [facility] Calcium 9.1 8.6 - 10.3 mg/dL 10/07/2024 7:10 AM EDT [facility] Phosphorus 4.2 2.1 - 4.7 mg/dL 10/07/2024 7:10 AM EDT [facility] Albumin 3.6 3.5 - 5.7 g/dL 10/07/2024 7:10 AM EDT [facility] Osmolality, Calculated 293 278 - 305 mOsm/kg 10/07/2024 7:10 AM EDT [facility] EGFR 22 10/07/2024 7:10 AM EDT [facility] Comment:As of 2021, the [...] LAB BLOOD ORDERABLES Final Result [facility] [address] [id number], [facility] * (ABNORMAL) CBC (10/07/2024 6:00 AM EDT) WBC 3.3(L) 3.8 - 10.8 10E3/uL 10/07/2024 7:55 AM EDT [facility] RBC 2.06(L) 4.20 - 5.80 10E6/uL 10/07/2024 7:55 AM EDT [facility] Hemoglobin 7.4(L) 13.2 - 17.1 g/dL 10/07/2024 7:55 AM EDT [facility] Hematocrit 21.5(L) 38.5 - 50.0 % 10/07/2024 7:55 AM EDT [facility] MCV 104.1(H) 80.0 - 100.0 fL 10/07/2024 7:55 AM EDT [facility] MCH 35.8(H) 27.0 - 33.0 pg 10/07/2024 7:55 AM EDT [facility] MCHC 34.4 32.0 - 36.0 g/dL 10/07/2024 7:55 AM EDT [facility] RDW 17.5(H) 11.0 - 15.0 % 10/07/2024 7:55 AM EDT [facility] Platelets 35(L) 140 - 400 10E3/uL 10/07/2024 7:55 AM EDT [facility] Comment: Specimen checked for clots. None detected. Slide Reviewed for PLT Clumps. None Seen. _Platelet Morphology Normal _Platelets Appear Decreased Platelet Estimate Decreased 10/07/2024 7:55 AM EDT [facility] MPV 8.0 7.5 - 11.5 fL 10/07/2024 7:55 AM EDT [facility] Whole Blood 10/07/2024 6:00 AM EDT 10/07/2024 6:40 AM EDT Narrative [facility] - 10/07/2024 7:55 AM EDT Peripheral blood smear was scanned per review criteria approved by the laboratory medical laboratory manager. us Eileen Schroeder MD, PhD LAB BLOOD ORDERABLES Final Result [facility] [address] [place] [address], [facility] * AFP Tumor Marker (10/07/2024 6:00 AM EDT) AFP-Tumor Marker 2.0 0.0 - 9.0 ng/mL 10/07/2024 7:11 AM EDT [facility] Serum 10/07/2024 6:00 AM EDT 10/07/2024 6:39 AM EDT Narrative [facility] - 10/07/2024 7:11 AM EDT The testing method for AFP is a chemiluminescent immunoassay manufactured by [employer] Concentrations of AFP obtained by different assay methods or kits may vary and cannot be used interchangeably. AFP results cannot be interpreted as absolute evidence of the presence or absence of malignant disease. Shila Rivera MD LAB BLOOD ORDERABLES Final Resul t Performing Organization Address City/[facility]/ZIP Co de Phone Number [facility] [address] [facility]. [address] * Vancomycin, random (10/07/2024 6:00 AM EDT) Vancomycin Random 21.1 ug/mL 10/07/2024 7:08 AM EDT [facility] Comment:Reference range not established for this test. Plasma 10/07/2024 6:00 AM EDT 10/07/2024 6:39 AM EDT Kiet Gardiner PharmD LAB BLOOD ORDERABLES Final Re sult Performing Organization Address [facility]/ZIP Co de Phone Number [facility] [address] [facility]. [address] * Osmolality (10/06/2024 2:50 PM EDT) Osmolality, Measured 304 278 - 305 mOsm/kg 10/06/2024 3:49 PM EDT [facility] Serum 10/06/2024 2:50 PM EDT 10/06/2024 2:56 PM EDT Chari Vanegas MD LAB BLOOD ORDERABLES Final Resul t Performing Organization Address [facility] Co de Phone Number [facility] [address] [facility]. [address] * CT Head WO contrast [...] Ur <15 mmol/L 10/06/2024 1:56 PM EDT [facility] Comment:Reference range not established for this test. Urine 10/06/2024 1:25 PM EDT 10/06/2024 1:32 PM EDT us Chari Vanegas MD URINE ORDERABLES Final Result Performing Organization Address [facility] Co de Phone Number [facility] [address] [facility]. [address] * Potassium, urine, random (10/06/2024 1:25 PM EDT) Potassium Urine Random 50.0 mmol/L 10/06/2024 1:56 PM EDT [facility] Comment:Reference range not established for this test. Urine 10/06/2024 1:25 PM EDT 10/06/2024 1:32 PM EDT us Chari Vanegas MD URINE ORDERABLES Final Result Performing Organization Address [facility] Co de Phone Number [facility] [address] [facility]. [address] * Sodium, urine, random (10/06/2024 1:25 PM EDT) Sodium, Ur <10 mmol/L 10/06/2024 1:56 PM EDT [facility] Comment:Reference range not established for this test. Urine 10/06/2024 1:25 PM EDT 10/06/2024 1:32 PM EDT us Chari Vanegas MD URINE ORDERABLES Final Result Performing Organization Address [facility] Co de Phone Number [facility] [address] [facility]. [address] * Creatinine, Urine, Random (10/06/2024 1:25 PM EDT) Creatinine, Urine 87.40 mg/dL 10/06/2024 1:56 PM EDT [facility] Comment:Reference range not established for this test. Urine 10/06/2024 1:25 PM EDT 10/06/2024 1:32 PM EDT us Chari Vanegas MD URINE ORDERABLES Final Result Performing Organization Address City/[facility]/ZIP Co de Phone Number [facility] [address] [facility]. [address] * Osmolality, Urine (10/06/2024 1:25 PM EDT) Osmolality, Ur 386 50 - 1,200 mOsm/kg 10/06/2024 1:55 PM EDT [facility] Urine 10/06/2024 1:25 PM EDT 10/06/2024 1:32 PM EDT us Chari Vanegas MD URINE ORDERABLES Final Result Performing Organization Address [facility] Co de Phone Number [facility] [address] [facility]. [address] * Urine Drug Confirmation (10/06/2024 [...] PRESENT 10/09/2024 3:23 PM EDT [facility] NOVELTY MAKER STIMULANTS NOT PRESENT 3:23 PM EDT [facility] OPIOID ANALGESICS PRESENT 025 3:23 PM EDT [facility] Oxycodone 329 ng/mL 10/09/2024 3:23 PM EDT [facility] Oxymorphone 61 ng/mL 10/09/2024 3:23 PM EDT [facility] Tramadol >1000 ng/mL 10/09/2024 3:23 PM EDT [facility] OPIOID ANTAGONISTS NOT PRESENT 10/09 3:23 PM EDT [facility] SEDATIVES/MUSCLE RELAXANTS NOT PRESENT 10/09/2024 3:23 PM EDT [facility] TRICYCLIC ANTIDEPRESSANTS NOT PRESENT 10/09/2024 3:23 PM EDT [facility] Urine 10/06/2024 11:5 1 AM EDT 10/06/2024 1:13 PM EDT Bisi Hernandez DO URINE ORDERABLES Final Result [facility] [address] [place] [address], [facility] * (ABNORMAL) Urine Drug Screen Reflex to Confirmation (10/06/2024 11:51 AM EDT) Amphetamine, 500 ng/mL Cutoff Negative Negative 10/06/2024 1:13 PM EDT [facility] Barbiturates UR, 300 ng/mL Cutoff Negative Negative 10/06/2024 1:13 PM EDT [facility] Buprenorphine, 5 ng/mL Cutoff Negative Negative 10/06/2024 1:13 PM EDT [facility] Benzodiazepines UR, 300 ng/mL Cutoff Negative Negative 10/06/2024 1:13 PM EDT [facility] Cocaine UR, 300 ng/mL Cutoff Negative Negative 10/06/2024 1:13 PM EDT [facility] Methadone, UR, 300 ng/mL Cutoff Negative Negative 10/06/2024 1:13 PM EDT [facility] Opiates UR, 300 ng/mL Cutoff Negative Negative 10/06/2024 1:13 PM EDT [facility] Oxycodone, 100 ng/mL Cutoff Presumptive Positive(A) Negative 10/06/2024 1:13 PM EDT [facility] Tricyclic Antidepressants, 300 ng/mL Cutoff Negative Negative 10/06/2024 1:13 PM EDT [facility] Comment:This test has been d eveloped and its performance characteristics determined by [facility] which is certified [...] Cutoff Negative Negative 10/06/2024 1:13 PM EDT [facility] Comment:This is a screening method only and may be associated with false positive and/or false negative results. Results are not definitive without additional confirmatory testing by mass spectrometry. Fentanyl, 2 ng/mL Cutoff Negative Negative 10/06/2024 1:13 PM EDT [facility] Comment:This test has been d eveloped and its performance characteristics determined by [facility] which is certified [...] AM EDT 10/06/2024 11:58 AM EDT Narrative [facility] - 10/06/2024 1:13 PM EDT CONFIRMATION TO FOLLOW [facility] DO URINE ORDERABLES Final Result Performing Organization Address City/[facility]/ZIP Co de Phone Number [facility] [address] [place] [address] * Chloride, urine, random (10/06/2024 11:51 AM EDT) Chloride, Ur <15 mmol/L 10/06/2024 1:13 PM EDT [facility] Comment:Reference range not established for this test. Urine 10/06/2024 11:5 1 AM EDT 10/06/2024 11:57 AM EDT [employer] DO URINE ORDERABLES Final Result Performing Organization Address [facility]/ZIP Co de Phone Number [facility] [address] * Potassium, urine, random (10/06/2024 11:51 AM EDT) Potassium Urine Random 49.0 mmol/L 10/06/2024 1:13 PM EDT [facility] Comment:Reference range not established for this test. Urine 10/06/2024 11:5 1 AM EDT 10/06/2024 11:57 AM EDT Bisi Hernandez DO URINE ORDERABLES Final Result Performing Organization Address [facility]/ZIP Co de Phone Number [facility] [address] [facility]. [address] * Sodium, urine, random (10/06/2024 11:51 AM EDT) Sodium, Ur <10 mmol/L 10/06/2024 1:13 PM EDT [facility] Comment:Reference range not established for this test. Urine 10/06/2024 11:5 1 AM EDT 10/06/2024 11:57 AM EDT [employer] maría DO URINE ORDERABLES Final Result Performing Organization Address [facility] de Phone Number [facility] [address] [facility]. [address] * Urinalysis w/Rfl to Microscopic (10/06/2024 11:51 AM EDT) Color, UA Yellow Yellow,Straw 10/06/2024 12:25 PM EDT [facility] Clarity, UA Clear Clear 10/06/2024 12:25 PM EDT [facility] Specific [place], UA 1.014 1.005 - 1.035 10/06/2024 12:25 PM EDT [facility] pH, UA 6.0 5.0 - 8.0 10/06/2024 12:25 PM EDT [facility] Protein, UA Negative Negative mg/dL 10/06/2024 12:25 PM EDT [facility] Glucose, UA Negative Negative mg/dL 10/06/2024 12:25 PM EDT [facility] Ketones, UA Negative Negative mg/dL 10/06/2024 12:25 PM EDT [facility] Bilirubin, UA Negative Negative 10/06/2024 12:25 PM EDT [facility] Blood, UA Negative Negative 10/06/2024 12:25 PM EDT [facility] Nitrite, UA Negative Negative 10/06/2024 12:25 PM EDT [facility] Urobilinogen, UA <2.0 0.2 - 1.9 mg/dL 10/06/2024 12:25 PM EDT [facility] Leukocyte Esterase, UA Negative Negative 10/06/2024 12:25 PM EDT [facility] Urine 10/06/2024 11:5 1 AM EDT 10/06/2024 11:57 AM EDT Narrative [facility] - 10/06/2024 12:25 PM EDT Microscopic testing is not performed when the dipstick is negative for blood, leukocyte, protein and nitrite. us Bisi Hernandez DO URINE ORDERABLES Final Result Performing Organization Address [facility]/ZIP Co de Phone Number [facility] [address] [place] [address] * Lactic Acid, STAT (10/06/2024 7:38 AM EDT) Lactate 0.9 0.5 - 2.2 mmol/L 10/06/2024 8:05 AM EDT [facility] Plasma 10/06/2024 7:38 AM EDT 10/06/2024 7:42 AM EDT us Chari Vanegas MD LAB BLOOD ORDERABLES Final Resul t [facility] [address] [facility]. [address] * (ABNORMAL) CBC, STAT (10/06/2024 7:37 AM EDT) WBC 5.6 3.8 - 10.8 10E3/uL 10/06/2024 8:22 AM EDT [facility] RBC 2.50(L) 4.20 - 5.80 10E6/uL 10/06/2024 8:22 AM EDT [facility] Hemoglobin 9.0(L) 13.2 - 17.1 g/dL 10/06/2024 8:22 AM EDT [facility] Hematocrit 25.3(L) 38.5 - 50.0 % 10/06/2024 8:22 AM EDT [facility] MCV 101.2(H) 80.0 - 100.0 fL 10/06/2024 8:22 AM EDT [facility] MCH 36.0(H) 27.0 - 33.0 pg 10/06/2024 8:22 AM EDT [facility] MCHC 35.6 32.0 - 36.0 g/dL 10/06/2024 8:22 AM EDT [facility] RDW 17.7(H) 11.0 - 15.0 % 10/06/2024 8:22 AM EDT [facility] Platelets 52(L) 140 - 400 10E3/uL 10/06/2024 8:22 AM EDT [facility] Comment: Specimen checked for clots. None detected. Slide Reviewed for PLT Clumps. None Seen. MPV 8.2 7.5 - 11.5 fL 10/06/2024 8:22 AM EDT [facility] Whole Blood 10/06/2024 7:37 AM EDT 10/06/2024 7:43 AM EDT us Chari Vanegas MD LAB BLOOD ORDERABLES Final Resul t [facility] [id number] [place] [address], [facility] * (ABNORMAL) Comprehensive Metabolic Panel (10/06/2024 7:37 AM EDT) Sodium 129(L) 133 - 146 mmol/L 10/06/2024 8:16 AM EDT [facility] Potassium 4.4 3.5 - 5.3 mmol/L 10/06/2024 8:16 AM EDT [facility] Chloride 100 98 - 110 mmol/L 10/06/2024 8:16 AM EDT [facility] CO2 18(L) 21 - 33 mmol/L 10/06/2024 8:16 AM EDT [facility] Anion Gap 11 3 - 16 mmol/L 10/06/2024 8:16 AM EDT [facility] BUN 62(H) 7 - 25 mg/dL 10/06/2024 8:16 AM EDT [facility] Creatinine 3.40(H) 0.60 - 1.30 mg/dL 10/06/2024 8:16 AM EDT [facility] Glucose 98 70 - 100 mg/dL 10/06/2024 8:16 AM EDT [facility] Calcium 9.5 8.6 - 10.3 mg/dL 10/06/2024 8:16 AM EDT [facility] Total Bilirubin 14.3(H) 0.0 - 1.5 mg/dL 10/06/2024 8:16 AM EDT [facility] AST 57(H) 13 - 39 U/L 10/06/2024 8:16 AM EDT [facility] ALT 29 7 - 52 U/L 10/06/2024 8:16 AM EDT [facility] Alkaline Phosphatase 158(H) 36 - 125 U/L 10/06/2024 8:16 AM EDT [facility] Total Protein 5.6(L) 6.4 - 8.9 g/dL 10/06/2024 8:16 AM EDT [facility] Albumin 3.6 3.5 - 5.7 g/dL 10/06/2024 8:16 AM EDT [facility] Osmolality, Calculated 286 278 - 305 mOsm/kg 10/06/2024 8:16 AM EDT [facility] EGFR 22 10/06[facility]24 [facility] Comment:As of 2021, the [...] Disease. Am J Kidney Dis. 2021. Plasma 10/06/2024 7:37 AM EDT 10/06/2024 7:43 AM EDT Chari Vanegas MD LAB BLOOD ORDERABLES Final Resul t [facility] [address] [place] [address], [facility] * (ABNORMAL) Venous Blood Gas, Line/Syringe, STAT (10/06/2024 7:37 AM EDT) PH-Line Draw 7.27(L) 7.32 - 7.42 10/06/2024 7:46 AM EDT [facility] PCO2-Line Draw 36(L) 41 - 51 mm Hg 10/06/2024 7:46 AM EDT [facility] PO2-Line Draw 44(H) 25 - 40 mm Hg 10/06/2024 7:46 AM EDT [facility] HCO3-Line Draw 17(L) 24 - 28 mmol/L 10/06/2024 7:46 AM EDT [facility] CO2 Content-Line Draw 18(L) 25 - 29 mmol/L 10/06/2024 7:46 AM EDT [facility] Base Excess-Line Draw -9.6(L) -2.0 - 3.0 mmol/L 10/06/2024 7:46 AM EDT [facility] %HBO2-Line Draw 69.8 40.0 - 70.0 % 10/06/2024 7:46 AM EDT [facility] Carboxyhgb-Ludivina e Draw 0.7 % 10/06/2024 7:46 AM EDT [facility] Comment: CARBOXYHEMOGLOBIN (CO) REFERENCE RANGES: Non-Smokers: <2 % Smokers: <8 % TOXIC: >20 % Methemoglobin- Line Draw 0.3 0.0 - 1.5 % 10/06/2024 7:46 AM EDT [facility] Reduced Hemoglobin-Ludivina e Draw 29.2(H) 0.0 - 5.0 % 10/06/2024 7:46 AM EDT [facility] Venous, Line Draw 10/06/2024 7:37 AM EDT 10/06/2024 7:43 AM EDT Chari Vanegas MD LAB BLOOD ORDERABLES Final Resul t [facility] [address] [place] [address], [facility] * (ABNORMAL) Venous Blood Gas, Line/Syringe, STAT (10/06/2024 4:03 AM EDT) PH-Line Draw 7.21(L) 7.32 - 7.42 10/06/2024 4:16 AM EDT [facility] PCO2-Line Draw 41 41 - 51 mm Hg 10/06/2024 4:16 AM EDT [facility] PO2-Line Draw 32 25 - 40 mm Hg 10/06/2024 4:16 AM EDT [facility] HCO3-Line Draw 16(L) 24 - 28 mmol/L 10/06/2024 4:16 AM EDT [facility] CO2 Content-Line Draw 18(L) 25 - 29 mmol/L 10/06/2024 4:16 AM EDT [facility] Base Excess-Line Draw -10.8(L) -2.0 - 3.0 mmol/L 10/06/2024 4:16 AM EDT [facility] %HBO2-Line Draw 47.5 40.0 - 70.0 % 10/06/2024 4:16 AM EDT [facility] Carboxyhgb-Ludivina e Draw 2.0 % 10/06/2024 4:16 AM EDT [facility] Comment: CARBOXYHEMOGLOBIN (CO) REFERENCE RANGES: Non-Smokers: <2 % Smokers: <8 % TOXIC: >20 % Methemoglobin- Line Draw 0.7 0.0 - 1.5 % 10/06/2024 4:16 AM EDT [facility] Reduced Hemoglobin-Ludivina e Draw 49.8(H) 0.0 - 5.0 % 10/06/2024 4:16 AM EDT [facility] Venous, Line Draw 10/06/2024 4:03 AM EDT 10/06/2024 4:12 AM EDT [employer] DO LAB BLOOD ORDERABLES Final Resul t Performing Organization Address [facility] de Phone Number [facility] [address] * (ABNORMAL) Protime-INR (10/06/2024 4:01 AM EDT) Protime 21.3(H) 12.1 - 15.1 seconds 10/06/2024 4:40 AM EDT [facility] INR 1.8(H) 0.9 - 1.1 10/06/2024 4:40 AM EDT [facility] Comment: RECOMMENDED THERAPEUTIC RANGES USING INR : Stable oral anticoagulant therapy: 2.0 - 3.0 Mechanical prosthetic heart valve: 2.5 - 3.5 Recurrent acute myocardial infarction: 2.5 - 3.5 Plasma 10/06/2024 4:01 AM EDT 10/06/2024 4:11 AM EDT [employer] LAB BLOOD ORDERABLES Final Resul t Performing Organization Address [facility] Co de Phone Number [facility] [address] [facility]. [address] * (ABNORMAL) Hepatic Function Panel, AM (10/06/2024 4:01 AM EDT) Total Bilirubin 14.7(H) 0.0 - 1.5 mg/dL 10/06/2024 4:57 AM EDT [facility] Bilirubin, Direct 7.08(H) 0.00 - 0.40 mg/dL 10/06/2024 4:57 AM EDT [facility] AST 60(H) 13 - 39 U/L 10/06/2024 4:57 AM EDT [facility] ALT 31 7 - 52 U/L 10/06/2024 4:57 AM EDT [facility] Alkaline Phosphatase 162(H) 36 - 125 U/L 10/06/2024 4:57 AM EDT [facility] Total Protein 5.3(L) 6.4 - 8.9 g/dL 10/06/2024 4:57 AM EDT [facility] Albumin 3.4(L) 3.5 - 5.7 g/dL 10/06/2024 4:57 AM EDT [facility] Bilirubin, Indirect 7.62(H) 0.00 - 1.10 mg/dL 10/06/2024 4:57 AM EDT [facility] Plasma 10/06/2024 4:01 AM EDT 10/06/2024 4:22 AM EDT [employer] DO LAB BLOOD ORDERABLES Final Resul t Performing Organization Address [facility] Co de Phone Number [facility] [address] [facility]. [address] * Magnesium (10/06/2024 4:01 AM EDT) Magnesium 1.8 1.5 - 2.5 mg/dL 10/06/2024 4:57 AM EDT [facility] Plasma 10/06/2024 4:01 AM EDT 10/06/2024 4:22 AM EDT [employer] DO LAB BLOOD ORDERABLES Final Resul t Performing Organization Address [facility] de Phone Number [facility] [address] [facility]. [address] * (ABNORMAL) Renal Function Panel w/EGFR (10/06/2024 4:01 AM EDT) Sodium 129(L) 133 - 146 mmol/L 10/06/2024 4:57 AM EDT [facility] Potassium 4.7 3.5 - 5.3 mmol/L 10/06/2024 4:57 AM EDT [facility] Chloride 100 98 - 110 mmol/L 10/06/2024 4:57 AM EDT [facility] CO2 16(L) 21 - 33 mmol/L 10/06/2024 4:57 AM EDT [facility] Anion Gap 13 3 - 16 mmol/L 10/06/2024 4:57 AM EDT [facility] BUN 61(H) 7 - 25 mg/dL 10/06/2024 4:57 AM EDT [facility] Creatinine 3.49(H) 0.60 - 1.30 mg/dL 10/06/2024 4:57 AM EDT [facility] Glucose 104(H) 70 - 100 mg/dL 10/06/2024 4:57 AM EDT [facility] Calcium 9.2 8.6 - 10.3 mg/dL 10/06/2024 4:57 AM EDT [facility] Phosphorus 5.3(H) 2.1 - 4.7 mg/dL 10/06/2024 4:57 AM EDT [facility] Albumin 3.4(L) 3.5 - 5.7 g/dL 10/06/2024 4:57 AM EDT [facility] Osmolality, Calculated 286 278 - 305 mOsm/kg 10/06/2024 4:57 AM EDT [facility] EGFR 22 10/06/2024 4:57 AM EDT [facility] Comment:As of 2021, the [...] DO LAB BLOOD ORDERABLES Final Resul t [facility] [address] [facility] [place] [address], [facility] * (ABNORMAL) CBC (10/06/2024 4:01 AM EDT) WBC 7.6 3.8 - 10.8 10E3/uL 10/06/2024 5:16 AM EDT [facility] RBC 2.77(L) 4.20 - 5.80 10E6/uL 10/06/2024 5:16 AM EDT [facility] Hemoglobin 10.1(L) 13.2 - 17.1 g/dL 10/06/2024 5:16 AM EDT [facility] Hematocrit 28.4(L) 38.5 - 50.0 % 10/06/2024 5:16 AM EDT [facility] MCV 102.4(H) 80.0 - 100.0 fL 10/06/2024 5:16 AM EDT [facility] MCH 36.4(H) 27.0 - 33.0 pg 10/06/2024 5:16 AM EDT [facility] MCHC 35.5 32.0 - 36.0 g/dL 10/06/2024 5:16 AM EDT [facility] RDW 18.0(H) 11.0 - 15.0 % 10/06/2024 5:16 AM EDT [facility] Platelets 53(L) 140 - 400 10E3/uL 10/06/2024 5:16 AM EDT [facility] Comment:Specimen checked for clots. None detected. MPV 8.4 7.5 - 11.5 fL 10/06/2024 5:16 AM EDT [facility] Whole Blood 10/06/2024 4:01 AM EDT 10/06/2024 4:11 AM EDT us Bisi Hernandez DO LAB BLOOD ORDERABLES Final Resul t [facility] [address] [id number], [facility] * Hepatitis C Antibody (10/06/2024 4:01 AM EDT) HCV Ab Nonreactive Nonreactive 10/06/2024 5:12 AM EDT [facility] Comment:Health Department no tified in accordance with reportable infectious disease guidelines. Serum 10/06/2024 4:01 AM EDT 10/06/2024 4:11 AM EDT [facility] - 10/06/2024 5:12 AM EDT Antibodies to HCV not detected; does not exclude the possibility of exposure to HCV. [employer] LAB BLOOD ORDERABLES Final Resul t Performing Organization Address City/[facility]/ZIP Co de Phone Number [facility] [address] [facility]. [address] * (ABNORMAL) Hepatitis B Surface Antibody, Quantitati (10/06/2024 4:01 AM EDT) Hep B S Ab Reactive( A) Nonreactive 10/06/2024 5:16 AM EDT [facility] HBSAB NUMBER 11.50(H) 0.00 - 7.99 mIU/mL 10/06/2024 5:16 AM EDT [facility] Serum 10/06/2024 4:01 AM EDT 10/06/2024 4:11 AM EDT [facility] - 10/06/2024 5:16 AM EDT Individual is considered immune to HBV infection. [employer] LAB BLOOD ORDERABLES Final Resul t Performing Organization Address [facility] Co de Phone Number [facility] [address] [facility]. [address] * Hepatitis B surface antigen (10/06/2024 4:01 AM EDT) Hep B Surface Ag Nonreactive Nonreactive 10/06/2024 5:07 AM EDT [facility] Comment:Health Department no tified in accordance with reportable infectious disease guidelines. Serum 10/06/2024 4:01 AM EDT 10/06/2024 4:11 AM EDT [facility] - 10/06/2024 5:07 AM EDT Specimen is considered negative for HBsAg. [employer] LAB BLOOD ORDERABLES Final Resul t Performing Organization Address City/[facility]/ZIP Co de Phone Number [facility] [address] [facility]. [address] * Hepatitis A Antibody Total (10/06/2024 4:01 AM EDT) Anti-HAV Total (IgG + IgM) Nonreactive 10/06/2024 5:08 AM EDT [facility] Serum 10/06/2024 4:01 AM EDT 10/06/2024 4:11 AM EDT Narrative [facility] - 10/06/2024 5:08 AM EDT HAV antibodies not detected [employer] LAB BLOOD ORDERABLES Final Resul t Performing Organization Address City/[facility]/ZIP Co de Phone Number [facility] [address] [place] [facility]. [address] * Hepatitis A IgM (10/06/2024 4:01 AM EDT) Hep A IgM Nonreactive Nonreactive 10/06/2024 5:02 AM EDT [facility] Serum 10/06/2024 4:01 AM EDT 10/06/2024 4:11 AM EDT Narrative [facility] - 10/06/2024 5:02 AM EDT IgM anti-HAV not detected. Does not exclude the possibility of exposure to or infection with HAV. Levels of IgM anti-HAV may be below the cut-off in early infection. [employer] LAB BLOOD ORDERABLES Final Resul t [facility] [address] [facility]. [address] * (ABNORMAL) Salicylate Level (10/06/2024 4:01 AM EDT) Salicylate Lvl <3(L) 10 - 30 mg/dL 10/06/2024 4:58 AM EDT [facility] Serum 10/06/2024 4:01 AM EDT 10/06/2024 4:22 AM EDT [employer] LAB BLOOD ORDERABLES Final Resul t Performing Organization Address City/[facility] Co de Phone Number [facility] [address] [facility]. [address] * AFP Tumor Marker (10/06/2024 4:01 AM EDT) [facility] AFP-Tumor Marker 2.6 0.0 - 9.0 ng/mL 10/06/2024 4:55 AM EDT [facility] Serum 10/06/2024 4:01 AM EDT 10/06/2024 4:22 AM EDT Narrative [facility] - 10/06/2024 4:55 AM EDT The testing method for AFP is a chemiluminescent immunoassay manufactured by [employer] Concentrations of AFP obtained by different assay methods or kits may vary and cannot be used interchangeably. AFP results cannot be interpreted as absolute evidence of the presence or absence of malignant disease. [employer] LAB BLOOD ORDERABLES Final Resul t Performing Organization Address [facility] Co de Phone Number [facility] [address] [facility]. [address] * Upper Respiratory Viral/Bacterial Panel-[employer] Only (10/06/2024 3:12 AM EDT) [facility] Adenovirus Not Detected Not Detected 10/06/2024 11:38 PM EDT [facility] Coronavirus (229E,HKU1,NL63,OC 43) Not Detected Not Detected 10/06/2024 11:38 PM EDT [facility] SARS-CoV-2 Not Detected Not Detected 10/06/2024 11:38 PM EDT [facility] Human Metapneumovirus Not Detected Not Detected 10/06/2024 11:38 PM EDT [facility] Human Rhinovirus/Enterov irus Not Detected Not Detected 10/06/2024 11:38 PM EDT [facility] Influenza A Not Detected Not Detected 10/06/2024 11:38 PM EDT [facility] Influenza A H1 Not Detected Not Detected 10/06/2024 11:38 PM EDT [facility] Influenza A/H1-2009 Not Detected Not Detected 10/06/2024 11:38 PM EDT [facility] Influenza A H3 Not Detected Not Detected 10/06/2024 11:38 PM EDT [facility] Influenza B Not Detected Not Detected 10/06/2024 11:38 PM EDT [facility] Parainfluenza 1 Not Detected Not Detected 10/06/2024 11:38 PM EDT [facility] Parainfluenza 2 Not Detected Not Detected 10/06/2024 11:38 PM EDT [facility] Parainfluenza 3 Not Detected Not Detected 10/06/2024 11:38 PM EDT [facility] Parainfluenza 4 Not Detected Not Detected 10/06/2024 11:38 PM EDT [facility] Resp. Syncycial Virus A Not Detected Not Detected 10/06/2024 11:38 PM EDT [facility] Resp. Syncycial Virus B Not Detected Not Detected 10/06/2024 11:38 PM EDT [facility] Chlamydia pneumoniae Not Detected Not Detected 10/06/2024 11:38 PM EDT [facility] Mycoplasma pneumoniae Not Detected Not Detected 10/06/2024 11:38 PM EDT [facility] Comment: The Respiratory Viral-Bacterial [...] Test results have been sent to the [facility] in accordance with state requirements. For a fact sheet for healthcare providers, see https://www.fda.gov/media/296496/download. For a fact sheet for patients, see https://www.fda.gov/media/089234/download. Nasopharyngeal Swab NASOPHARYNGEAL SWAB / Unknown 10/06/2024 3:12 AM EDT 10/06/2024 5:41 PM EDT Comment:[employer] us Bisi Hernandez DO BODY FLUIDS AND STOOLS ORDERABLE S Final Result [facility] [address] [facility] [place] [address], [facility] * X-ray Portable Chest (10/06/2024 1:16 [...] AM EDT Bisi Hernandez DO [facility] ORDERABLE S Final Result * Phosphatidylethanol Confirmation, B (10/06/2024 1:04 AM EDT) PETH 16:0/18.1 (POPETH) <10 Cutoff: 10 ng/mL 10/10/2024 3:11 AM EDT [facility] [facility] Comment: Phosphatidylethanol (PEth) homologues result [...] day several days a week) (Reference: Zhanna Graysno and Declan Phillips 2018 J. Forensic Sci) PETH 16:0/18.2 (PLPETH) <10 Cutoff: 10 ng/mL 10/10/2024 3:11 AM EDT [facility] Comment: PEth 16:0/18:2 (PLPEth) Reference ranges are not well established PEth Interpretation Negative. 10/10 3:11 AM EDT [facility] Comment: ADDITIONAL INFORMATION This report is intended for use in clinical monitoring and management of patients. It is not intended for use in employment-related testing. This test was developed and its performance characteristics determined by [facility] in a manner consistent with CLIA requirements. This test has not been cleared or approved by the U.S. Food and Drug Administration. Test Performed by: [address] [address] [employer]: Kathy Ortiz Ph.D.; CLIA# [id number] Whole Blood 10/06/2024 1:04 AM EDT 10/10/2024 3:11 AM EDT [employer] LAB BLOOD ORDERABLES Final Resul t Performing Organization Address City/[facility] Co de Phone Number [facility] [address] [facility]. [address] * (ABNORMAL) Acetaminophen Level (10/06/2024 1:04 AM EDT) Acetaminophen Level <10(L) 10 - 30 ug/mL 10/06/2024 2:08 AM EDT [facility] Serum 10/06/2024 1:04 AM EDT 10/06/2024 1:30 AM EDT [employer] LAB BLOOD ORDERABLES Final Resul t Performing Organization Address [facility] Co de Phone Number [facility] [address] [place] [address]. [address] * Ethanol, Serum (10/06/2024 1:04 AM EDT) Ethanol <10 0 - 10 mg/dL 10/06/2024 2:08 AM EDT [facility] Serum 10/06/2024 1:04 AM EDT 10/06/2024 1:30 AM EDT [employer] [facility] BLOOD ORDERABLES Final Resul t Performing Organization Address City/[facility] Co de Phone Number [facility] [address]. [address] * #2 Blood culture-Peripheral site 2 (10/06/2024 1:04 AM EDT) Culture Result No Growth After 5 Days [facility] Blood BLOOD SPECIMEN / Unknown 10/06/2024 1:04 AM EDT 10/06/2024 4:57 AM EDT Narrative [facility] - 10/11/2024 5:05 AM EDT Suboptimal volume of blood received. Interpret results with caution. Bisi Hernandez DO MICROBIOLOGY - GENERAL ORDERABLE S Final Result Performing Organization Address City/[facility]/ZIP Co de Phone Number [facility] [address] * #1 Blood culture-Peripheral site 1 (10/06/2024 1:04 AM EDT) Culture Result No Growth After 5 Days [facility] Blood BLOOD SPECIMEN / Unknown 10/06/2024 1:04 AM EDT 10/06/2024 4:57 AM EDT Narrative [facility] - 10/11/2024 5:01 AM EDT Suboptimal volume of blood received. Interpret results with caution. Bisi Hernandez DO MICROBIOLOGY - GENERAL ORDERABLE S Final Result Performing Organization Address [facility] Co de Phone Number [facility] [address] [place] [address]. [address] * Ammonia (10/06/2024 1:04 AM EDT) Ammonia 77 27 - 90 ug/dL 10/06/2024 2:00 AM EDT [facility] Plasma 10/06/2024 1:04 AM EDT 10/06/2024 1:30 AM EDT Bisi Hernandez DO LAB BLOOD ORDERABLES Final Resul t Performing Organization Address City/[facility]/ZIP Co de Phone Number [facility] [address] [facility]. [address] * Thyroid Function [place] (10/06/2024 1:04 AM EDT) TSH 0.84 0.45 - 4.12 uIU/mL 10/06/2024 2:20 AM EDT [facility] Serum 10/06/2024 1:04 AM EDT 10/06/2024 1:39 AM EDT Bisi Hernandez DO LAB BLOOD ORDERABLES Final Resul t Performing Organization Address City/[facility]/ZIP Co de Phone Number [facility] [address] * (ABNORMAL) Protime-INR (10/06/2024 1:04 AM EDT) Protime 22.8(H) 12.1 - 15.1 seconds 10/06/2024 1:48 AM EDT [facility] INR 1.9(H) 0.9 - 1.1 10/06/2024 1:48 AM EDT [facility] Comment: RECOMMENDED THERAPEUTIC RANGES USING INR : Stable oral anticoagulant therapy: 2.0 - 3.0 Mechanical prosthetic heart valve: 2.5 - 3.5 Recurrent acute myocardial infarction: 2.5 - 3.5 Plasma 10/06/2024 1:04 AM EDT 10/06/2024 1:30 AM EDT us [employer] DO LAB BLOOD ORDERABLES Final Resul t Performing Organization Address [facility]/ZIP Co de Phone Number [facility] [address] * Lactic Acid, STAT (10/06/2024 1:04 AM EDT) Lactate 1.2 0.5 - 2.2 mmol/L 10/06/2024 1:59 AM EDT [facility] Plasma 10/06/2024 1:04 AM EDT 10/06/2024 1:30 AM EDT us [employer] DO LAB BLOOD ORDERABLES Final Resul t Performing Organization Address City/[facility]/ZIP Co de Phone Number [facility] [address] [facility] * (ABNORMAL) CBC, STAT (10/06/2024 1:04 AM EDT) WBC 7.9 3.8 - 10.8 10E3/uL 10/06/2024 2:36 AM EDT [facility] RBC 2.76(L) 4.20 - 5.80 10E6/uL 10/06/2024 2:36 AM EDT [facility] Hemoglobin 9.9(L) 13.2 - 17.1 g/dL 10/06/2024 2:36 AM EDT [facility] Hematocrit 28.0(L) 38.5 - 50.0 % 10/06/2024 2:36 AM EDT [facility] MCV 101.5(H) 80.0 - 100.0 fL 10/06/2024 2:36 AM EDT [facility] MCH 35.7(H) 27.0 - 33.0 pg 10/06/2024 2:36 AM EDT [facility] MCHC 35.2 32.0 - 36.0 g/dL 10/06/2024 2:36 AM EDT [facility] RDW 17.9(H) 11.0 - 15.0 % 10/06/2024 2:36 AM EDT [facility] Platelets 58(L) 140 - 400 10E3/uL 10/06/2024 2:36 AM EDT [facility] Comment: Specimen checked for clots. None detected. Slide Reviewed for PLT Clumps. None Seen. MPV 8.2 7.5 - 11.5 fL 10/06/2024 2:36 AM EDT [facility] Whole Blood 10/06/2024 1:04 AM EDT 10/06/2024 1:31 AM EDT us Bisi Hernandez DO LAB BLOOD ORDERABLES Final Resul t [facility] [address] [facility] [place] [place] [address], [facility] * (ABNORMAL) Comprehensive Metabolic Panel (10/06/2024 1:04 AM EDT) Sodium 127(L) 133 - 146 mmol/L 10/06/2024 2:05 AM EDT [facility] Potassium 4.5 3.5 - 5.3 mmol/L 10/06/2024 2:05 AM EDT [facility] Chloride 99 98 - 110 mmol/L 10/06/2024 2:05 AM EDT [facility] CO2 18(L) 21 - 33 mmol/L 10/06/2024 2:05 AM [facility] Anion Gap 10 3 - 16 mmol/L 10/06/2024 2:05 AM [facility] BUN 59(H) 7 - 25 mg/dL 10/06/2024 2:05 AM [facility] Creatinine 3.54(H) 0.60 - 1.30 mg/dL 10/06/2024 2:05 AM [facility] Glucose 116(H) 70 - 100 mg/dL 10/06/2024 2:05 AM T [facility] Calcium 9.0 8.6 - 10.3 mg/dL 10/06/2024 2:05 AM [facility] Total Bilirubin 14.8(H) 0.0 - 1.5 mg/dL 10/06/2024 2:05 AM [facility] AST 61(H) 13 - 39 U/L 10/06/2024 2:05 AM [facility] ALT 33 7 - 52 U/L 10/06/2024 2:05 AM [facility] Alkaline Phosphatase 174(H) 36 - 125 U/L 10/06/2024 2:05 AM [facility] Total Protein 5.2(L) 6.4 - 8.9 g/dL 10/06/2024 2:05 AM [facility] Albumin 3.3(L) 3.5 - 5.7 g/dL 10/06/2024 2:05 AM [facility] Osmolality, Calculated 282 278 - 305 mOsm/kg 10/06/2024 2:05 AM [facility] EGFR 21 10/06/2024 2:05 AM [facility] Comment:As of 2021, the estimated [...] DO LAB BLOOD ORDERABLES Final Resul t [facility] [address] [place] [address], [facility] documented in this encounter Visit Diagnoses [...] 10 mg nitroGLYCERIN in D5W injection - HEEL ROOM SUPERVISOR ONLY Intra-op PRN, Starting on Sun10/14/24 at [...] documented as of this encounter Care Teams Inductor Tester Relationship Specialty Start Date End Date Enedina Mcguire NP [address] [place] [address] PCP - General Internal Medicine 10/05/24 documented as of this encounter
--- OUTSIDE RECORDS SUMMARY | 2024-10-20 09:10 | XMS_ITS | Encounter Summary ---
Author Organization [facility] Address [facility] [place] [address] Care Team Providers Care Block Cuber Name Role Phone Enedina Mcguire NP Primary Care Provider [phone] Source Comments This information has been disclosed [...] release of HIV test results or diagnoses. [id number] Encounter Details Date Type Department Care Team (Latest Contact Info) Description 10/20/2024 9:10 AM EDT - 10/20/2024 11:59 PM EDT Hospital Encounter [facility] Radiology [address] [place] [phone] System, Provider Not In Discharge Disposition: Home [...] Recorded In the past 12 months has [employer], gas, oil, or water [employer] threatened to shut off services in your [...] AM EDT 10/17/2024 naloxone (NARCAN) 4 mg/actuation [place] Apply 1 spray in one nostril if [...] Description 12/05/2024 8:01 AM EDT Hospital Encounter [facility] ENDOSCOPY [address] [place] [address] Chris Orosco MD [address] [place] [phone] 12/05/2024 8:01 AM EDT - 12/05/2024 8:31 AM EDT Surgery [facility] ENDOSCOPY [address] [place] [address] Chris Orosco MD [address] [place] [phone] EGD Scheduled Procedures Name Priority Associated Diagnoses [...] documented as of this encounter Care Teams Block Cuber Relationship Specialty Start Date End Date Enedina Mcguire NP [address] [place] [address] PCP - General Internal Medicine 10/05/24 documented as of this encounter
--- OUTSIDE RECORDS SUMMARY | 2024-10-20 09:10 | XMS_ITS | Encounter Summary ---
Author Organization [facility] Address [facility] [place] [address] Care Team Providers Care Sheep Sticker Name Role Phone Enedina Mcguire NP Primary Care Provider [phone] Source Comments This information has been disclosed [...] release of HIV test results or diagnoses. [id number] Encounter Details Date Type Department Care Team (Latest Contact Info) Description 10/20/2024 9:10 AM EDT - 10/20/2024 11:59 PM EDT Hospital Encounter [facility] Radiology [address] [place] [phone] System, Provider Not In Discharge Disposition: Home [...] Recorded In the past 12 months has [employer], gas, oil, or water [employer] threatened to shut off services in your [...] AM EDT 10/17/2024 naloxone (NARCAN) 4 mg/actuation [place] Apply 1 spray in one nostril if [...] EDT Hospital Encounter [facility] ENDOSCOPY [address] [place] [address] Chris Orosco MD [address] [place] [phone] 12/05/2024 8:01 AM EDT - 12/05/2024 8:31 AM EDT Surgery [facility] ENDOSCOPY [address] [place] [address] Chris Orosco MD [address] [place] [phone] EGD Scheduled Procedures Name Priority Associated Diagnoses [...] documented as of this encounter Care Teams Sheep Sticker Relationship Specialty Start Date End Date Enedina Mcguire NP [address] [place] [address] PCP - General Internal Medicine 10/05/24 documented as of this encounter
--- OUTSIDE RECORDS SUMMARY | 2024-10-20 09:10 | XMS_ITS | Encounter Summary ---
Author Organization [facility] Address [facility] [place] [address] Care Team Providers Care Space Operations Officer Name Role Phone Enedina Mcguire NP Primary Care Provider [phone] Source Comments This information has been disclosed [...] release of HIV test results or diagnoses. [id number] Encounter Details Date Type Department Care Team (Latest Contact Info) Description 10/20/2024 9:10 AM EDT - 10/20/2024 11:59 PM EDT Hospital Encounter [facility] Radiology [address] [place] [phone] System, Provider Not In Discharge Disposition: Home [...] Recorded In the past 12 months has [employer], gas, oil, or water [employer] threatened to shut off services in your [...] AM EDT 10/17/2024 naloxone (NARCAN) 4 mg/actuation [place] Apply 1 spray in one [...] 12/05/2024 8:01 AM EDT Hospital Encounter [facility] ENDOSCOPY [address] [place] [address] Chris Orosco MD [address] [place] [phone] 12/05/2024 8:01 AM EDT - 12/05/2024 8:31 AM EDT Surgery [facility] ENDOSCOPY [address] [place] [address] Chris Orosco MD [address] [place] [phone] EGD Scheduled Procedures Name Priority Associated Diagnoses [...] documented as of this encounter Care Teams Space Operations Officer Relationship Specialty Start Date End Date Enedina Mcguire NP [address] [place] [address] PCP - General Internal Medicine 10/05/24 documented as of this encounter
--- OUTSIDE RECORDS SUMMARY | 2024-10-20 09:10 | XMS_ITS | Encounter Summary ---
Author Organization [facility] Address [facility] [place] [address] Care Team Providers Care Evaporator Operator Molasses Name Role Phone Enedina Mcguire NP Primary Care Provider [phone] Source Comments This information has been disclosed [...] release of HIV test results or diagnoses. [id number] Encounter Details Date Type Department Care Team (Latest Contact Info) Description 10/20/2024 9:10 AM EDT - 10/20/2024 11:59 PM EDT Hospital Encounter [facility] Radiology [address] [place] [address] System, Provider Not In Discharge Disposition: Home [...] Recorded In the past 12 months has [employer], gas, oil, or water [employer] threatened to shut off services in your [...] time in the past 12 m [facility], were you homeless or living in [...] AM EDT 10/17/2024 naloxone (NARCAN) 4 mg/actuation [place] Apply 1 spray in one nostril if [...] Encounter [facility] ENDOSCOPY [address] [place] [address] Chris Orosco MD [address] [place] [phone] 12/05/2024 8:01 AM EDT - 12/05/2024 8:31 AM EDT Surgery [facility] ENDOSCOPY [address] [place] [address] Chris Orosco MD [address] [place] [phone] EGD Scheduled Procedures Name Priority Associated Diagnoses [...] documented as of this encounter Care Teams Evaporator Operator Molasses Relationship Specialty Start Date End Date Enedina Mcguire NP [address] [place] [address] PCP - General Internal Medicine 10/05/24 documented as of this encounter
--- OUTSIDE RECORDS SUMMARY | 2024-10-20 09:10 | XMS_ITS | Encounter Summary ---
Author Organization [facility] Address [facility] [place] [address] Care Team Providers Care Emergency Specialist Name Role Phone Enedina Mcguire NP Primary Care Provider [phone] Source Comments This information has been disclosed [...] release of HIV test results or diagnoses. [id number] Encounter Details Date Type Department Care Team (Latest Contact Info) Description 10/20/2024 9:10 AM EDT - 10/20/2024 11:59 PM EDT Hospital Encounter [facility] Radiology [address] [place] [phone] System, Provider Not In Discharge Disposition: Home [...] Recorded In the past 12 months has [employer], gas, oil, or water [employer] threatened to shut off services in your [...] AM EDT 10/17/2024 naloxone (NARCAN) 4 mg/actuation [place] Apply 1 spray in one nostril if [...] Description 12/05/2024 8:01 AM EDT Hospital Encounter [facility] ENDOSCOPY [address] [place] [address] Chris Orosco MD [address] [place] [phone] 12/05/2024 8:01 AM EDT - 12/05/2024 8:31 AM EDT Surgery [facility] ENDOSCOPY [address] [place] [address] Chris Orosco MD [address] [place] [phone] EGD Scheduled Procedures Name Priority Associated Diagnoses [...] documented as of this encounter Care Teams Emergency Specialist Relationship Specialty Start Date End Date Enedina Mcguire NP [address] [place] [address] PCP - General Internal Medicine 10/05/24 documented as of this encounter
--- OUTSIDE RECORDS SUMMARY | 2024-10-20 09:10 | XMS_ITS | Encounter Summary ---
Author Organization [facility] Address [facility] [place] [address] Care Team Providers Care Snow Ranger Name Role Phone Enedina Mcguire NP Primary Care Provider [phone] Source Comments This information has been disclosed [...] release of HIV test results or diagnoses. [id number] Encounter Details Date Type Department Care Team (Latest Contact Info) Description 10/20/2024 9:10 AM EDT - 10/20/2024 11:59 PM EDT Hospital Encounter [facility] Radiology [address] [place] [phone] System, Provider Not In Discharge Disposition: Home [...] Recorded In the past 12 months has [employer], gas, oil, or water [employer] threatened to shut off services in your [...] time in the past 12 m [facility], were you homeless or living [...] AM EDT 10/17/2024 naloxone (NARCAN) 4 mg/actuation [place] Apply 1 spray in one nostril if [...] Description 12/05/2024 8:01 AM EDT Hospital Encounter [facility] ENDOSCOPY [address] [place] [address] Chris Orosco MD [address] [place] [phone] 12/05/2024 8:01 AM EDT - 12/05/2024 8:31 AM EDT Surgery [facility] ENDOSCOPY [address] [place] [address] Chris Orosco MD [address] [place] [address] [phone] EGD Scheduled Procedures Name Priority Associated Diagnoses [...] documented as of this encounter Care Teams Snow Ranger Relationship Specialty Start Date End Date Enedina Mcguire NP [address] [place] [address] PCP - General Internal Medicine 10/05/24 documented as of this encounter
--- OUTSIDE RECORDS SUMMARY | 2024-10-20 09:10 | XMS_ITS | Encounter Summary ---
Author Organization [facility] Address [facility] [place] [address] Care Team Providers Care Commodity Merchant Name Role Phone Enedina Mcguire NP Primary Care Provider [phone] Source Comments This information has been disclosed [...] release of HIV test results or diagnoses. [id number] Encounter Details Date Type Department Care Team (Latest Contact Info) Description 10/20/2024 9:10 AM EDT - 10/20/2024 11:59 PM EDT Hospital Encounter [facility] Radiology [address] [place] [phone] System, Provider Not In Discharge Disposition: Home [...] Recorded In the past 12 months has [employer], gas, oil, or water [employer] threatened to shut off services in your [...] AM EDT 10/17/2024 naloxone (NARCAN) 4 mg/actuation [place] Apply 1 spray in one nostril [...] 8:01 AM EDT Hospital Encounter [facility] ENDOSCOPY [address] [place] [phone] Chris Orosco MD [address] [place] [phone] 12/05/2024 8:01 AM EDT - 12/05/2024 8:31 AM EDT Surgery [facility] ENDOSCOPY [address] [place] [address] Chris Orosco MD [address] [place] [phone] EGD Scheduled Procedures Name Priority Associated Diagnoses [...] documented as of this encounter Care Teams Commodity Merchant Relationship Specialty Start Date End Date Enedina Mcguire NP [address] [place] [address] PCP - General Internal Medicine 10/05/24 documented as of this encounter
--- OUTSIDE RECORDS SUMMARY | 2024-10-25 20:46 | XMS_ITS | Encounter Summary ---
Author Organization [facility] Address [address] [place] [address] Care Team Providers Care Stenographic Court Reporter Name Role Phone Enedina Mcguire NP Primary Care Provider + [phone] Alicia Pantoja RN Unavailable Unavail able Source [...] release of HIV test results or diagnoses. [id number] Reason for Referral * Surgical (Routine) - Authorized Specialty Diagnoses / Procedures Referred By Shane hernadez Referred To Contact Surgery Diagnoses Acute kidney injury superimposed on CKD (CMS-HCC) Procedures Case request operating room: TRANSPLANT KIDNEY with bile duct reconstruction Sveta Judge MD [address] [facility] [address] Surgery [place] [address] Phone: tel: fax: Referral ID Status Reason Start Date Expiration Date V isits Requested Visits Authorized [id number] Authorized 10/26/2024 04/24/2025 1 1 Reason for Visit * Auth/Cert (Routine) Specialty Diagnoses / Procedures Referred By Shane hernadez Referred To Contact Surgical Intensive Care Diagnoses Liver transplant recipient (CMS-HCC) cirrhosis and CKD Procedures LIVER-KIDNEY TRANSPLANT [facility] [address] [place] [address] Phone: tel: Referral ID Status Reason Start Date Expiration Date Visits Re quested Visits Authorized [id number] 1 1 Encounter Details Date Type Department Care Team (Latest Contact Info) Description 10/25/2024 8:46 PM EDT - 11/02/2024 6:23 PM EDT Hospital Encounter [address] [place] [address] Semaj Mcnair III, MD [address] [facility] [address] Transplant [place] [address] Lydia Sanchez MD [address] [facility] Liver/[place] [address] Acute kidney injury superimposed on CKD ([facility]) (Primary Dx); Prophylactic antibiotic; Prolonged QT interval; Immunosuppression ([facility]); Abdominal pain, unspecified abdominal location Discharge [...] Recorded In the past 12 months has [employer], [employer], or water [employer] threatened to shut off services in your [...] in the past 12 m [facility], were you homeless or living in a [...] Plata MD - 11/02/2024 2:04 PM EDT [facility] Liver Transplant Surgical Service Inpatient Discharge Summary Patient: Blair Gilbert : 1985 CSN: [id number] Date of Admission: 10/25/2024 Date of Discharge: [...] Case IDs Date Procedure Surgeon Location Status [id number] 10/25/24 LIVER TRANSPLANT Semaj Mcnair III, MD OR Comp [id number] 10/27/24 Donor Kidney Transplant , Back Bench Preparation Donor Kidney, Baseline Kidney transplant biopsy , Insertion of Indwelling Stent , Removal of Perihepatic packing Semaj Mcnair III, MD OR Comp Notable Imaging Studies: [...] EXAM: US ABDOMEN LIMITED EXAM: US DUPLEX [id number]-[id number] COMPLETE INDICATION: Post-op liver transplant COMPARISON: None [...] visualized secondary to poor acoustic windows. The grindstone right kidney measures 11.6 cm in length. [...] 30 tablet Refills: 0 naloxone 4 mg/actuation [place] Commonly known as: NARCAN Apply 1 spray [...] Your Medications These medications were sent to [facility] [address] [address] mycophenolate 250 mg capsule tacrolimus 1 MG capsule These [facility] [address] [facility] [address] Hours: Sunday - Sunday: 8:00AM - 6:00PM [...] Case IDs Date Procedure Surgeon Location Status [id number] 10/25/24 LIVER TRANSPLANT Semaj Mcnair III, MD OR Comp [id number] 10/27/24 Donor Kidney Transplant , Back Bench Preparation Donor Kidney, Baseline Kidney transplant biopsy , Insertion of Indwelling Stent , Removal of Perihepatic packing Semaj Mcnair III, MD OR Comp on 10/25/2024 - [...] discharge. NEURO/PAIN - Patient placed on Dilaudid JOB HAND once extubated, then transitioned to multi-modal pain [...] Ureteral stentis scheduled for removal on 11/25 [facility] - PT/OT evaluated patient and recommended Home PT/OT, outpatient PT/OT only available. ENDO - A1C is 5.0. Pt was not on diabetic regimen prior to arrival. Patient developed steroid-induced hyperglycemia 2/2 steroid regimen. Discharged home on the following regimen: HDSSI. Patient met w/ nursing educator prior to discharge. HEME - Post-operatively, [...] Patient and family received post-transplant education from administrative support coordinator as well as medication teaching from [...] Department Center 11/04/2024 8:40 AM LTRA SURGERY, [facility] LTRA HOX [facility] 11/04/2024 10:10 AM LTRA HEPATORENAL [facility] LTRA HOX HOX 11/25/2024 9:00 AM NAA Merida [facility] URO MAB MAB 12/02/2024 2:00 PM Bossman Huffman MD [facility] MARIANGEL MAB MAB 02/25/2025 10:50 AM Bruno Gonzalez MD KTSP HOX HOX Kenyettafahad Hartman, MS-4 [facility] SHAY PLATA MD 11/02/2024 12:50 PM Cosigned [...] under 2 gm/day. Please discuss withyour pharmacy operations coordinator if you have any question about appropriate dose to take. Other Instructions: Call post-liver transplant clinic with questions [phone] or call [facility] at [phone] and ask for the liver administrative support coordinator director clinical information services if you experience any of the following: [...] Department Center 11/04/2024 8:40 AM LTRA SURGERY, [facility] LTRA [facility] 11/04/2024 10:10 AM LTRA HEPATORENAL [facility] LTRA [facility] 11/25/2024 9:00 AM NAA Merida [facility] M[facility] M[facility] 12/02/2024 2:00 PM Bossman Huffman MD [facility] MARIANGEL MAB [facility] 02/25/2025 10:50 AM Bruno Gonzalez MD [facility] documented in this encounter Medications at [...] EDT 11/02/2024 blood sugar diagnostic (GLUCOSE BLOOD) [facility] Use to test blood sugar up to 4 times a day. 100 strip 11 11/02/2024 10:20 AM EDT 10/27/2024 blood-glucose meter (TRUE METRIX GLUCOSE METER) [facility] Use to test blood sugar up to [...] AM EDT 10/27/2024 lancets (ACCU-CHEK SOFTCLIX LANCETS) [facility] Use to test blood sugar up to [...] capsule 5 10/27/2024 naloxone (NARCAN) 4 mg/actuation [place] Apply 1 spray in one nostril if [...] tacrolimus and mycophenolate which were dispensed through [facility] per insurance requirements. Patient's confirms [...] fair Expected caregiver involvement?: is primary med gas manager Need for additional education in clinic?: routine reinforcement only Future medications to be obtained from, if known (select one): Tac/MMF to be filled from [facility] Financial concerns (if any): [...] R-11 blood-glucose meter (TRUE METRIX GLUCOSE METER) Mis [...] Disp-15 mL, R-2 lancets (ACCU-CHEK SOFTCLIX LANCETS) [facility] Use to test blood sugar up to [...] Disp-30 tablet, R-0 naloxone (NARCAN) 4 mg/actuation [place] Apply 1 spray in one nostril if [...] Comments: Reason for Stopping: Eduardo Gamino, Pharm.D., TXP Solid Organ Transplant Clinical Specialist Contact via [employer] Secure Chat * Froylan Hendrickson MD - 11/01/2024 8:04 AM EDT Liver Transplant Surgery Progress Note Name: Blair Gilbert CSN: [id number] Date: 11/01/2024 8:06 AM OR Date: 10/25/2024 [...] at 10/31/2024 4:38 PM EDT US Duplex Cpn-Yhh-Myqslhi Comp Result Date: 10/31/2024 IMPRESSION: RIGHT UPPER [...] 10/25/2024 - 10/27/2024. Plan: Liver transplant recipient ([facility]) [Z94.4] Neuro: - Multimodal pain control: [...] 3:24 PM EDT TXP - Follow Up [facility] Medical Nutrition Therapy Transplant Brief Note Diet Order/Nutrition Support: Diet/Nutrition Orders Diet Regular(7) high calorie 3000 kcal a day Frequency: Effective Now Number of Occurrences: Until Specified Order Questions: Additional restrictions: high calorie 3000 kcal a day Suicide/Behavior Risk Modification? No Dietary nutrition supplements Frequency: TID Number of Occurrences: Until Specified Order Questions: Select Supplement: Boost VHC- very high calorie protein supplement ([facility] only) Pertinent Information: Pt seen for [...] Based on DBW of 93.1 kg Kcals/day: 5512-6815 (25-30 kcals/kg) Protein g/day: 140-190 (1.5-2.0 g/kg) [...] Keon Dobson - 10/31/2024 2:35 PM EDT [facility] Spiritual Care Volunteer Visit PATIENT NAME: Blair Gilbert [facility] Cong[facility]ational Affiliation:Mormonism Blair Gilbert was visited by a volunteer today. No needs requiring a visit from a staff machine bobbin winder were expressed at that time. Care Provided: Communion, Prayer/ blessing Please page our service at [phone] as needs arise for patient and/or family. Fr Dean Dobson Mormonism machine bobbin winder Spiritual Care Dept * Brittany Horne PT - 10/31/2024 1:42 PM EDT Physical Therapy Reason Patient Not Seen Name: Blair Gilbert : 1985 Attending Physician: Lydia Sanchez MD Admission Diagnosis: Liver transplant recipient ([facility]) [Z94.4] Date: 10/31/2024 Precautions: Precautions: none [...] issued by OT: Long-handled sponge, Sock aid, Assisted Sales Representative, Other (comment) Equipment issued by OT comment: leg machine tester Assessment Assessment: Decreased ADL status, Decreased IADLs, [...] IADL task (Goal met and continued 10/31) Penitentiary Goal : Pt will complete bathing assessment and transfer group home goal to be met in: 2 [...] TRANSPLANT N/A 10/25/2024 Procedure: LIVER TRANSPLANT; Surgeon: Semaj Mcnair III, MD; Location: OR; Service: Transplant; Laterality: N/A; NEPHRECTOMY TRANSPLANTED ORGAN N/A 10/27/2024 Procedure: Donor Kidney Transplant , Back Bench Preparation Donor Kidney, Baseline Kidney transplant biopsy , Insertion of Indwelling Stent , Removal of Perihepatic packing; Surgeon: Semaj Mcnair III, MD; Location: [facility]; Service: Transplant; Laterality: N/A; [1] Patient Active Problem List Diagnosis Decompensated cirrhosis ([facility]) Acute kidney injury superimposed on CKD ([facility]) Alcohol use disorder Metabolic encephalopathy Hypertension Other hyperlipidemia Thrombocytopenia ([facility]) Renal mass, left Abdominal pain Hypokalemia CKD (chronic kidney disease) stage 4, GFR 15-29 ml/min ([facility]) Metabolic acidosis with normal anion gap and bicarbonate losses GERD (gastroesophageal reflux disease) Hypothyroidism Itching Anemia BRBPR (bright red blood per rectum) SBP (spontaneous bacterial peritonitis) ([facility]) C Diff Diarrhea C. difficile diarrhea Neck pain with history of cervical spinal surgery Cosigned by Eyv Phillips OT at 10/31/2024 12:24 PM EDT [...] 0659 10/31/24 07 - 11/01/24 0659 Shift 4578-9654 6331-2752 1883-4174 24 Hour Total 2340-1481 6675-3255 4856-4810 24 Hour Total INTAKE P.O. 240 240 P.O. 240 240 Shift Total(mL/kg) 240(1.9) 240(1.9) OUTPUT Urine(mL/kg/hr) 1850(1.8) 600(0.6) 600(0.6) 3050(1) 350 350 Urine 800 893 987 1780 350 350 Urine Occurrence 2 x 2 [...] with further concerns Lavell Kramer MD 10/31/[phone] * Priti Geiger CNP - 10/31/2024 10:06 AM EDT Liver Transplant Surgery Progress Note Name: Blair Gilbert CSN: [id number] Date: 10/31/2024 10:06 AM OR Date: 10/25/2024 [...] 10/28/24 1109 LACTATE 0.3* Imaging US Duplex Nwa-Esw-Mqjvxww Comp Result Date: 10/28/2024 IMPRESSION: ABDOMINAL ULTRASOUND [...] 10/25/2024 - 10/27/2024. Plan: Liver transplant recipient ([facility]) [Z94.4] Neuro: - Multimodal pain control: [...] Transplant Nephrology Progress Note Patient: Blair Gilbert [id number] Date of Admit: 10/25/2024. 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 Lauren Santos, SAMSON, UNIFORM ATTENDANT, FORENSIC ECONOMIST- Transplant Nephrology [phone] Preferred contact: secure chat The HPI, ROS, [...] 0659 10/30/24 07 - 10/31/24 0659 Shift 8893-9976 4941-1266 7197-4946 24 Hour Total 2846-2856 4642-1292 8259-7518 24 Hour Total INTAKE P.O. 240 240 480 P.O. 240 240 480 IV Piggyback 87.2 87.2 Volume (mL) (micafungin (MYCAMINE) 50 mg in sodium chloride 0.9 % 100 mL Kxzt9Doc IVPB) 87.2 87.2 Shift Total(mL/kg) 240(2) 327.2(2.7) 567.2(4.4) OUTPUT Urine(mL/kg/hr) 600(0.6) 1175(1.2) 450(0.4) 2225(0.7) 550 550 Output (mL) (IUC (Berkowitz) Triple-lumen (3-Way) 18 Fr.) 600 6126 072 5194 550 550 Drains 175 245 100 520 [...] month of prophylaxis Lavell Kramer MD 10/30/[phone] * Priti Geiger CNP - 10/30/2024 10:36 AM EDT Liver Transplant Surgery Progress Note Name: Blair Gilbert CSN: [id number] Date: 10/30/2024 10:37 AM OR Date: 10/25/2024 [...] 1109 LACTATE 0.5 0.3* Imaging US Duplex Tjp-Tfh-Dodvecx Comp Result Date: 10/28/2024 IMPRESSION: ABDOMINAL ULTRASOUND [...] 10/25/2024 - 10/27/2024. Plan: Liver transplant recipient ([facility]) [Z94.4] Neuro: - Multimodal pain control: [...] Transplant Nephrology Progress Note Patient: Blair Gilbert [id number] Date of Admit: 10/25/2024. 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 KT 10/27/24: WNL Renal Function: Cr: 1.96 Bun: [...] 10/27/2024 PCO2 35 10/27/2024 PO2ART 92 10/27/2024 [id number] 21 (L) 10/27/2024 BEART -4.6 (L) 10/27/2024 JWX7YNH 95.4 10/27/2024 V1FIHCWG 98 10/27/2024 Hemodynamics / Cardiovascular Status: Goal [...] % Iron Saturation: SEE COMMENT on 10/25/2024 HbfatljU27: No results found for requested labs within [...] preliminary until attending attestation. Lauren Santos, SAMSON, UNIFORM ATTENDANT, FORENSIC ECONOMIST- Transplant Nephrology [phone] Preferred contact: secure chat The HPI, ROS, [...] EDT Pt seen, examined, and discussed with WHITE WASHER PILER on 10/30/2024. reviewed the chart including the labs and imaging studies. My additional comments below. 39 y.o. 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 S/p SLK 10/25-10/26 Good uop Mild MA, will monitor for now for needs of po bicarb Aaron Gonzalez MD, MEd, FASN * Ben Weiss, RD - 10/29/2024 3:36 PM EDT TXP - Follow Up [facility] Medical Nutrition Therapy Follow-Up Diet [...] I/O: +23.3L net volume. 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 Admit Weight: 270 lb (122.5 kg) [...] Based on DBW of 93.1 kg Kcals/day: 6817-9829 (25-30 kcals/kg) Protein g/day: 140-190 (1.5-2.0 g/kg) [...] Dietitian - Solid Organ Transplant Contact via [employer] Chat * Anita Crystal, PT - 10/29/2024 2:04 PM EDT Physical Therapy Initial Assessment Name: Blair Gilbert : 1985 Attending Physician: Semaj Mcnair III, MD Admission Diagnosis: Liver transplant recipient ([facility]) [Z94.4] Date: 10/29/2024 Room: [place] [address] [address] Reviewed Pertinent hospital course: Yes Hospital Course [...] with functional mobility at: 4/10 or less Penitentiary Goal : Pt will ambulate 250' mod [...] TRANSPLANT N/A 10/25/2024 Procedure: LIVER TRANSPLANT; Surgeon: Semaj Mcnair III, MD; Location: OR; Service: Transplant; Laterality: N/A; NEPHRECTOMY TRANSPLANTED ORGAN N/A 10/27/2024 Procedure: Donor Kidney Transplant , Back Bench Preparation Donor Kidney, Baseline Kidney transplant biopsy , Insertion of Indwelling Stent , Removal of Perihepatic packing; Surgeon: Semaj Mcnair III, MD; Location: OR; Service: Transplant; Laterality: N/A; [1] Patient Active Problem List Diagnosis Decompensated cirrhosis ([facility]) Acute kidney injury superimposed on CKD ([facility]) Alcohol use disorder Metabolic encephalopathy Hypertension Other hyperlipidemia Thrombocytopenia (CMS-HCC) Renal mass, left Abdominal pain Hypokalemia CKD (chronic kidney disease) stage 4, GFR 15-29 ml/min (CMS-HCC) Metabolic acidosis with normal anion gap and bicarbonate losses GERD (gastroesophageal reflux disease) Hypothyroidism Itching Anemia BRBPR (bright red blood per rectum) SBP (spontaneous bacterial peritonitis) ([facility]) C Diff Diarrhea C. difficile diarrhea Neck pain with history of cervical spinal surgery * Shanel Pabon, OT - 10/29/2024 1:23 PM EDT Occupational Therapy Initial Assessment Name: Blair Gilbert : 1985 Attending Physician: Semaj Mcnair III, MD Admission Diagnosis: Liver transplant recipient ([facility]) [Z94.4] Date: 10/29/2024 Room: [place] [address] [address] Reviewed Pertinent hospital course: Yes Hospital Course [...] Intervention(s): Ambulation/increased activity;Repositioned Therapist reported pain to: esol teacher assistant Oxygen Supplemental Oxygen Supplemental Oxygen: None (Room [...] distance ambulation in prep for IADL task Penitentiary Goal : Pt will complete bathing assessment and transfer group home goal to be met in: 2 [...] OT Time Start Time: 0849 Stop Time: 09 Time Calculation (min): 39 min OT Charges [...] TRANSPLANT N/A 10/25/2024 Procedure: LIVER TRANSPLANT; Surgeon: Semaj Mcnair III, MD; Location: OR; Service: Transplant; Laterality: N/A; NEPHRECTOMY TRANSPLANTED ORGAN N/A 10/27/2024 Procedure: Donor Kidney Transplant , Back Bench Preparation Donor Kidney, Baseline Kidney transplant biopsy , Insertion of Indwelling Stent , Removal of Perihepatic packing; Surgeon: Semaj Mcnair III, MD; Location: OR; Service: Transplant; Laterality: [...] SBP (spontaneous bacterial peritonitis) ([facility]) C Diff Diarrhea C. difficile diarrhea Neck pain with history of cervical spinal surgery * Caron Santos CNP - 10/29/2024 10:30 AM EDT Images from the original note were not included. Transplant Nephrology Progress Note Patient: Blair Gilbert [id number] SICU-28/IC-28 Date of Admit: 10/25/2024. LOS: 4 days. 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 Lauren Santos, DNP, UNIFORM ATTENDANT, FORENSIC ECONOMIST- Transplant Nephrology [phone] Preferred contact: secure chat The HPI, ROS, [...] EDT Pt seen, examined, and discussed with WHITE WASHER PILER on 10/29/2024. reviewed the chart including the labs and imaging studies. My additional comments below. 39 y.o. 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 S/p SLK 10/25-10/26 Has great UOP 4.2L; 720 drain output Aaron Gonzalez MD, MEd, FASN * Kenyetta Hartman - 10/29/2024 10:07 AM EDT Liver Transplant Surgery Progress Note Name: Blair Gilbert CSN: [id number] Date: 10/29/2024 10:08 AM OR Date: 10/25/2024 [...] Labs 10/27/24 1713 10/28/24 0005 10/28/24 04110/28/24 1109 10/29/24 0507 AST 62* 60* -- [...] LACTATE 0.4* 0.5 0.3* Imaging US Duplex Piu-Mge-Kpeaslx Comp Result Date: 10/28/2024 IMPRESSION: ABDOMINAL ULTRASOUND [...] at 10/27/2024 10:38 AM EDT US Duplex Cvw-Lni-Fixsrat Comp Result Date: 10/27/2024 IMPRESSION: RIGHT UPPER [...] 10/25/2024 - 10/27/2024. Plan: Liver transplant recipient ([facility]) [Z94.4] Neuro: - Multimodal pain control: [...] SQH, SCDs DISPO: floor KENYETTA HARTMAN, MS4 [facility] General Surgery 10:08 AM 10/29/2024 Cosigned [...] 10/29/2459 10/29/24 07 - 10/30/24 0659 Shift 5041-7787 6522-5867 8050-3906 24 Hour Total 1520-8750 3149-7576 9624-6249 24 Hour Total INTAKE P.O. 240 0 [...] IV infusion) 253.9 374.7 775.6 1404.2 Blood 0477 520 8602 Albumin 750 750 Volume (Transfuse RBC Transfusion Rate: Per dept routine) 310 310 Volume (Transfuse RBC Transfusion Rate: Per dept routine) 271 271 IV Piggyback 918.4 281 33 0022.4 Volume (mL) (micafungin (MYCAMINE) 50 mg in sodium chloride 0.9 % 100 mL Xmeq6Psu IVPB) 99.9 99.9 Volume (mL) (albumin human [...] month of prophylaxis Lavell Kramer MD 10/29/[phone] * John Moreno MD - 10/29/2024 6:47 AM EDT SURGICAL ICU PROGRESS NOTE 10/29/2024 6:47 AM Name: Blair Gilbert CSN: [id number] HPI: Blair Gilbert is a 39 y.o. [...] TRANSPLANT N/A 10/25/2024 Procedure: LIVER TRANSPLANT; Surgeon: Semaj Mcnair III, MD; Location: OR; Service: Transplant; Laterality: N/A; NEPHRECTOMY TRANSPLANTED ORGAN N/A 10/27/2024 Procedure: Donor Kidney Transplant , Back Bench Preparation Donor Kidney, Baseline Kidney transplant biopsy , Insertion of Indwelling Stent , Removal of Perihepatic packing; Surgeon: Semaj Mcnair III, MD; Location: OR; Service: Transplant; Laterality: [...] to 4 times a day. DEXCOM G7 PANTRY STEWARD/STEWARDESS Misc Use reader as directed. DEXCOM G7 [...] times a day. naloxone (NARCAN) 4 mg/actuation [place] Apply 1 spray in one nostril if [...] 37 37 35 PO2ART 245* 182* 92 DBQ3WTS 22 21* 21* BEART -4.2* -4.8* -4.6* [...] at baseline or with provocation, shows no lxccj-nn-ivgp atrial level shunt. - Pulmonary arteries: Systolic [...] Home pantoprazole 40mg daily, continue Last BM: POLY OPERATOR - suppository today Bowel regimen: Miralax [...] results for input(s): TEGANGLE , TEGKTIME , VYDPBPHS72 , TEGMAXAMPL , TEGRTIME , CBMZ in [...] in sodium chloride 0.9 % 100 mL Nwsv5Zbn IVPB 50 mg Every 24 hours 10/27/2024 -- Admin Instructions: PROTECT FROM LIGHT FLUSH LINE w/NSS PRIOR TO ADMINISTRATION Use Nznf4Ser Adapter - Mix Thoroughly Before Administration Route: [...] BID Continuous Infusions: HYDROmorphone 6 mg/30 mL JOB HAND norepinephrine 4 mcg/min (10/27/24 2318) sodium chloride [...] Date 10/27/24699 - 10/28/2465810/28/24699 - 10/29/24658 Shift 5824-7428 5385-2328 3100-9168 24 Hour Total 8376-5813 3836-2815 8883-7862 24 Hour Total INTAKE P.O. 0 120 [...] in sodium chloride 0.9 % 100 mL Kjwf5Nnb IVPB) 100 100 Volume (mL) (albumin human 5%) 126 126 Volume (mL) (potassium chloride (KCl)/Sterile water 50 mL 20 mEq/50 mL IVPB 20 mEq) 100 100 Volume (mL) (AMPicillin 1 g in sodium chloride 0.9% 100 mL IVPB (Gdmx4Ngn)) 100.1 57 42.9 200 Volume (mL) (mycophenolate (CELLCEPT) 500 mg in dextrose 5% in water (D5W) 50 mL IVPB) 50 5.3 55.3 Shift Total(mL/kg) 2079.3(17) 1161(9.5) 787.3(6.4) 4027.6(32.9) OUTPUT Urine(mL/kg/hr) 2195(2.2) 1000(1) 900(0.9) 4095(1.4) 490 490 Urine 360 360 Output (mL) (IUC (Berkowitz) Triple-lumen (3-Way) 18 Fr.) 1835 3952 695 5956 490 490 Emesis/NG output 50 50 Drainage [...] 1.67* Lab 10/28/24 0413 10/25/24 2343 10/25/24 9207 PROTHROMBIN TIME 14.6 < > 21.7* INR [...] month of prophylaxis Lavell Kramer MD 10/28/[phone] * Caron Santos CNP - 10/28/2024 9:00 AM EDT Images from the original note were not included. Transplant Nephrology Progress Note Patient: Blair Gilbert [id number] SICU-28/IC-28 Date of Admit: 10/25/2024. LOS: 3 days. 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 Lauren Santos, SAMSON, UNIFORM ATTENDANT, FORENSIC ECONOMIST- Transplant Nephrology [phone] Preferred contact: secure chat The HPI, ROS, [...] EDT Pt seen, examined, and discussed with WHITE WASHER PILER on 10/28/2024. reviewed the chart including the labs and imaging studies. My additional comments below. 39 y.o. 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 S/p SLK 10/25-10/26 Has great UOP 4.2L Aaron Gonzalez MD, MEd, FASN * Shay Plata MD - 10/28/2024 7:41 AM EDT Liver Transplant Surgery Progress Note Name: Blair Gilbert CSN: [id number] Date: 10/28/2024 11:05 AM OR Date: 10/25/2024 - 10/27/2024 Subjective: 1 Day Post-Op Received one unit pRBCs overnight On low dose levo this morning Increasing tachycardia Reports worsening pain, on JOB HAND Tolerated sips of clears No nausea/vomiting, no [...] Oral BID Continuous: HYDROmorphone 6 mg/30 mL JOB HAND norepinephrine Stopped (10/28/24 0637) sodium chloride 0.9 [...] PROTIME 16.2* 15.2* 14.6 Recent Labs 10/27/24 17110/28/24410/28/24412 NA 142 144 142 K 3.4* 3.4* [...] at 10/27/2024 10:38 AM EDT US Duplex Dzh-Hha-Gvvexei Comp Result Date: 10/27/2024 IMPRESSION: RIGHT UPPER [...] 10/25/2024 - 10/27/2024. Plan: Liver transplant recipient ([facility]) [Z94.4] Neuro: - Multimodal pain control: dilaudid JOB HAND, tylenol, robaxin. PRN dilaudid for breakthrough CV: [...] DISPO: SICU SHAY PLATA MD, MS4 [facility]ly [facility] Surgery 11:05 AM 10/28/2024 Cosigned by [...] 10/28/2024 6:17 AM Name: Blair Gilbert CSN: [id number] HPI: Blair Gilbert is a 39 y.o. [...] TRANSPLANT N/A 10/25/2024 Procedure: LIVER TRANSPLANT; Surgeon: Semaj Mcnair III, MD; Location: OR; Service: Transplant; Laterality: [...] to 4 times a day. DEXCOM G7 PANTRY STEWARD/STEWARDESS Misc Use reader as directed. DEXCOM G7 [...] times a day. naloxone (NARCAN) 4 mg/actuation [place] Apply 1 spray in one nostril if [...] Oral BID Continuous: HYDROmorphone 6 mg/30 mL JOB HAND insulin regular in 0.9 % sodium chloride [...] 37 37 35 PO2ART 245* 182* 92 BXM4CES 22 21* 21* BEART -4.2* -4.8* -4.6* [...] at baseline or with provocation, shows no vpebw-ui-rbdh atrial level shunt. - Pulmonary arteries: Systolic [...] while intubated,convert to PO today Last BM: POLY OPERATOR Bowel regimen: Miralax today, hold senna [...] ml IV Fluids: HYDROmorphone 6 mg/30 mL JOB HAND insulin regular in 0.9 % sodium chloride, [...] results for input(s): TEGANGLE , TEGKTIME , ZYJRADTD43 , TEGMAXAMPL , TEGRTIME , CBMZ in [...] in sodium chloride 0.9% 100 mL IVPB (Kxlp2Dqq) (Completed) 1 g Every 6 hours scheduled 10/26/2024 10/28/2024 Admin Instructions: Dosage may need to be adjusted for renal dysfunction. Full dose is 1g IV q6h Use Sqig2Iif Adapter - Mix Thoroughly Before Administration Notes to Pharmacy: On telephone recorder estimated creatinine clearance is 35.9 mL/min (A) [...] in sodium chloride 0.9 % 100 mL Pvzd1Ksc IVPB 50 mg Every 24 hours 10/27/2024 -- Admin Instructions: PROTECT FROM LIGHT FLUSH LINE w/NSS PRIOR TO ADMINISTRATION Use Umur3Gdj Adapter - Mix Thoroughly Before Administration Route: [...] R IJ Mac Arterial Line? R radial [place]han Urinary Catheter? Berkowitz - Reason: Adequate I/O DVT Prophylaxis: Subcutaneous Heparin GI Prophylaxis: PPI PT/OT: Engage today Activity: OOB today DISPOSITION Remain in SICU JOHN MORENO MD 10/28/2024 6:17 AM ICU ATTENDING PROGRESS NOTE: I have examined Blari Gilbert, reviewed the events of the previous [...] Duloxetine Other (See Comments) Became Manic * CLARITA JohnsonT - 10/27/2024 1:38 PM EDT Caprini Risk [...] the Caprini Risk Score of 10 and [facility] transplant protocol, I recommend discharging [...] Solid Organ Transplant Clinical Specialist Contact via Aquaspy Chat Preferred O. [phone] * Chinedu Almeida RRT - 10/27/2024 1:10 [...] PCO2 37 10/27/2024 PO2ART 245 (H) 10/27/2024 XVW6EVH 22 10/27/2024 BEART -4.2 (L) 10/27/2024 IGZ3FRC 96.5 10/27/2024 X1VGXLXY 100 10/27/2024 Based on this SBT assessment [...] Surgery Progress Note Name: Blair Gilbert CSN: [id number] Date: 10/27/2024 11:40 AM OR Date: 10/25/2024 - 10/27/2024 Subjective: * Day of Surgery * Remains intubated in SICU Sedated but appropriately nods to questions No acute distress Objective: BP 100/48 Pulse 89 Temp 99 ??F (37.2 ??C) (Parnell) Resp 9 Ht 6' 4 (1.93 m) [...] 5.5* GLUCOSE 127* 126* 111* Recent Labs 10/26/24 1642 10/27/24 0013 10/27/24 0800 LACTATE 0.3* 0.2* 0.4* [...] at 10/27/2024 10:38 AM EDT US Duplex Gfx-Fez-Rbcstql Comp Result Date: 10/27/2024 IMPRESSION: RIGHT UPPER [...] 10/27/2024. Problem List[1] Plan: Liver transplant recipient ([facility]) [Z94.4] Neuro: - Propofol/fentanyl CV: - [...] SQH, SCDs DISPO: SICU KENYETTA HARTMAN, MS4 [facility] Surgery 11:40 AM 10/27/2024 [1] Patient Active Problem List Diagnosis Decompensated cirrhosis ([facility]) Acute kidney injury superimposed on CKD ([facility]) Alcohol use disorder Metabolic encephalopathy Hypertension Other hyperlipidemia Thrombocytopenia ([facility]) Renal mass, left Abdominal pain Hypokalemia CKD (chronic kidney disease) stage 4, GFR 15-29 ml/min ([facility]) Metabolic acidosis with normal anion gap and bicarbonate losses GERD (gastroesophageal reflux disease) Hypothyroidism Itching Anemia BRBPR (bright red blood per rectum) SBP (spontaneous bacterial peritonitis) ([facility]) C Diff Diarrhea C. difficile diarrhea Neck pain with history of cervical spinal surgery Cosigned by Semaj Mcnair III, MD at 10/30/2024 10:46 AM EDT Associated attestation - Semaj Mcnair III, MD - 10/30/2024 10:46 AM EDT I saw and evaluated the patient on 10/27/24, and discussed with the SAWYER/resident team. I agree with the SAWYER/resident???s findings and plan as documented in the SAWYER/resident???s note. Immunosuppression reviewed and discussed with multidisciplinary team. --- Diandra Mcnair III, MD Transplant Surgery (cell) * Chinedu [...] 10/27/2024 7:16 AM Name: Blair Gilbert CSN: [id number] HPI: Blair Gilbert is a 39 y.o. [...] for 30 days. FREESTYLE NIDA 3 READER [facility] Use 1 each as directed Use as [...] in the morning and at bedtime. lancets Misc Use to test blood sugar up to 4 times a day. Dx: 9.65. Brand per pharmacy / insurance preference. methocarbamoL (ROBAXIN) 500 MG tablet Take 1 tablet (500 mg total) by mouth 3 times a day. mycophenolate (CELLCEPT) 250 mg capsule Take 2 capsules (500 mg total) by mouth 2 times a day. naloxone (NARCAN) 4 mg/actuation [place] Apply 1 spray in one nostril if [...] Blood Gas Measurements pH: (!) 7.32 (10/27/24 0013) PCO2: 37 (10/27/2412) PO2: (!) 137 (10/27/243) HCO3: (!) 20 (10/27/243) Base Excess: (!) -6.4 (10/27/24 0013) SaO2: 100 (10/27/24 0013) Recent Labs 10/26/24 0610 10/26/24 1048 10/27/24 0013 PHART 7.27* 7.37 7.32* PCO2 47* 36 37 PO2ART 127* 91 137* TPD6GQF 21* 22 20* BEART -5.4* -3.9* -6.4* [...] at baseline or with provocation, shows no exham-ni-etgq atrial level shunt. - Pulmonary arteries: Systolic [...] IV pantoprazole while intubated, NPO Last BM: POLY OPERATOR Bowel regimen: Senna/Miralax when able Nausea: [...] 10/27/2024 0715 Gross per 24 hour Intake 83545.82 ml Output 7060 ml Net 6224.82 ml [...] replacement - resolved RENAL/ Recent Labs 10/26/24104710/26/24164110/27/24 0013 BUN 61* 63* 64* CREATININE 2.78* [...] results for input(s): TEGANGLE , TEGKTIME , BGFMLNKI36 , TEGMAXAMPL , TEGRTIME , CBMZ in [...] in sodium chloride 0.9% 100 mL IVPB (Bbga3Ktr) 1 g Every 6 hours scheduled Admin Instructions: Dosage may need to be adjusted for renal dysfunction. Full dose is 1g IV q6h Use Dsxv5Gge Adapter - Mix Thoroughly Before Administration Notes to Pharmacy: On telephone recorder estimated creatinine clearance is 35.9 mL/min (A) (based on SCr of 3.87 mg/dL (H)). Route: Intravenous Linked Group 1: Placed in And Linked Group cefTRIAXone (ROCEPHIN) 2 g in sodium chloride 0.9 % 100 mL Vsgl9Tif Continuous - One Step Medications Only 10/27/2024 [...] Agitation Sedation Scale: -2 Overall CAM[facility]ICU : [facility] A/P: - ADDY # Mood Disorder - [...] ATTENDING PROGRESS NOTE: I have examined Blair iGlbert, reviewed the events of the previous 24 [...] Solid Organ Transplant Clinical Specialist Contact via Epic Secure Chat Preferred * iSmeon Guzman RN - 10/27/2024 2:40 AM EDT [...] 10/26/2024 0725 Gross per 24 hour Intake 35770.32 ml Output 2075 ml Net 50843.32 ml Consitutional: Intubated/sedated HEENT: Mucous membranes moist [...] Best MD General Surgery Resident Cosigned by Semaj Mcnair III, MD at 10/30/2024 10:46 AM EDT Associated attestation - Semaj Mcnair III, MD - 10/30/2024 10:46 AM EDT I saw and evaluated the patient on 10/26/24, and discussed with the SAWYER/resident team. I agree with the SAWYER/resident???s findings and plan as documented in the SAWYER/resident???s note. Immunosuppression reviewed and discussed with multidisciplinary team. --- Diandra Mcnair III, MD Transplant Surgery (cell) * Jannet Ramires - 10/26/2024 8:15 AM EDT ECG performed on patient Blair Gilbert in SICU-28/USIC-28. Abnormal results noted and given to patient's RN. Test transmitted and paper copy placed in patient's chart. 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 naloxone (NARCAN) 4 mg/actuation [place] Apply 1 spray in one nostril if [...] Low Risk (07/09/2024) Received from [facility] Overall Financial Resource Strain (CARDIA) Difficulty [...] Answer (07/14/2024) Received from [facility] [place] [employer]ational [employer] - Occupational Stress Questionnaire [...] admitted to SICU post-op. LEANDRA OG MD [facility] Surgery Liver Transplant Pager: [phone] 8:24 PM 10/25/2024 Cosigned by Semaj Mcnair III, MD at 10/30/2024 10:46 AM EDT Associated attestation - Semaj Mcnair III, MD - 10/30/2024 10:46 AM EDT [...] to txp or intra-op CRRT --- Diandra Mcnair III, MD Transplant Surgery (cell) documented in this encounter Procedure Notes * Flaquito Ba MD - 10/27/2024 6:29 AM EDT Patient Name: Blair Gilbert Date: 1985 Billing #: [id number] Date of Procedure: 10/25/2024 Diagnosis: End Stage Renal Disease Procedure: 1. Donor Kidney Transplant 2. Back Bench Preparation Donor Kidney 3. Baseline Kidney transplant biopsy 4. Insertion of Indwelling Stent 5. Removal of Perihepatic packing Surgeons * Flaquito Ba MD [employer] Barista MD Shayan Findings: Low Hockey stick incision [...] donor was ABO O and UNOS ID [id number], Match Run [id number] (K). This donor was a Donor after [...] was then wanded with the lap detection billing and accounting staff assistant. The incision was ex tented 2 [...] measured and case was passed to Dr Mcnair. Please see separately dictatednote for the bile duct reconstruction and closure. Flaquito Ba MD Transplant Surgeon beam dyer operator * Flaquito Ba MD - 10/27/2024 6:15 AM EDT TRANSPLANT KIDNEY with bile duct reconstruction Brief Op Note Blair Gilbert 10/27/2024 Pre-op Diagnosis: Acute kidney injury superimposed on CKD (CMS-HCC) [N17.9, N18.9] Post-op Diagnosis: same Procedure(s): TRANSPLANT KIDNEY Surgeon(s): MD Semaj Washington III, MD Anesthesia: General Endotracheal Staff: Firmware Engineer: Chinedu Quinn RN Scrub Person: ST Angela Fellow: Kemar Sahni MD 2nd Firmware Engineer: Marty Clark RN 3rd Firmware Engineer: Candis Mcdaniel RN FINDINGS Berkowitz 3 day Drains: Intraabdominal (perihepatic) UNOS ID [id number], Match Run [id number] Kid WIT 27 min Kid CIT 33 hours Estimated Blood Loss: 200 mL Specimens: Specimens ID Description Commments Type Source Tests Collected By Collected At 1 1) perfusate 1) perfusate Fluid Kidney Left ANAEROBIC CULTURE FUNGUS CULTURE ROUTINE CULTURE PLUS STAIN Semaj Mcnair III, MD 10/27/24 0215 A Baseline Renal Biopsy Tissue Kidney Left SURGICAL PATHOLOGY EXAM Semaj Mcnair III, MD 10/27/24 0238 Drains: NG/OG Tube [...] (Berkowitz) Triple-lumen (3-Way) 18 Fr. (Active) Status [place] Drainage 10/26/241999 Collection Container Standard drainage bag [...] Bile Duct Anastomosis Kidney transplant Surgeon(s): MD Semaj Washington III, MD Anesthesia: General Endotracheal Staff: Firmware Engineer: Chinedu Quinn RN Relief Firmware Engineer: Michela Amos RN Relief Scrub: Stephani Blake RN Scrub Person: ST Angela Fellow: Kemar Sahni MD 2nd Firmware Engineer: Marty Clark RN 3rd Firmware Engineer: Candis Mcdaniel RN Estimated Blood Loss: 300 mL Specimens: Specimens ID Description Commments Type Source Tests Collected By Collected At 1 1) perfusate 1) perfusate Fluid Kidney Left ANAEROBIC CULTURE FUNGUS CULTURE ROUTINE CULTURE PLUS STAIN Semaj Mcnair III, MD 10/27/24 0215 A Baseline Renal Biopsy Tissue Kidney Left SURGICAL PATHOLOGY EXAM Semaj Mcnair III, MD 10/27/24 0238 B B) Right lobe liver biopsy Tissue Liver SURGICAL PATHOLOGY EXAM Semaj Mcnair III, MD 10/27/24 0620 C C) Left lobe liver biopsy Tissue Liver SURGICAL PATHOLOGY EXAM Semaj Mcnair III, MD 10/27/24 0638 Drains: NG/OG Tube [...] (Berkowitz) Triple-lumen (3-Way) 18 Fr. (Active) Status [place] Drainage 10/26/241999 Collection Container Standard drainage bag [...] day Drains: 2 Intraabdominal (perihepatic) UNOS ID [id number], Match Run [id number] Donor: young DCD NRP Kid WIT 27 min Kid CIT 33 hours Removal of Perihepatic packing- 5 Raytecs 2 laps There were no complications unless listed below. KEMAR SAHNI MD Date: 10/27/2024 Time: 7:35 AM Cosigned by Semaj Mcnair III, MD at 10/30/2024 10:46 AM EDT Associated attestation - Semaj Mcnair III, MD - 10/30/2024 10:46 AM EDT --- Diandra Mcnair III, MD Transplant Surgery (cell) * Semaj Mcnair III, MD - 10/27/2024 12:00 AM EDT [facility] PATIENT NAME: BLAIR GILBERT DATE OF : 1985 CSN: [id number] PHYSICIAN: Semaj Mcnair III, MD ADMIT DATE: 10/25/2024 DICTATED BY: Semaj Mcnair III, MD SURGERY DATE: 10/27/2024 OPERATIVE REPORT SURGEON: Semaj Mcnair III, MD MORTGAGE ANALYST SURGEON: Kemar Sahni MD. PREOPERATIVE DIAGNOSIS: Open [...] operating room early this morning by Dr. aB. General anesthesia was induced. He already was [...] were made hemostatic with the argon beam results engineer. We assessed the flows of the portal [...] a mucocele formation. We then performed a jbgm-zb-rjuk choledochocholedochostomy in an end to end fashion [...] small umbilicalhernia that was closed with a pcpcnq-ce-rkmst 0 PDS suture. At this point, we [...] the operation. There were no immediate complications. SEMAJ MCNAIR III, MD RCQ/AQ JOB#: [id number] * Semaj Mcnair III, MD - 10/26/2024 7:00 AM EDT Patient Name: Blair Gilbert Date: 1985 Billing #: [id number] Date of Procedure: 10/25/2024 - 10/26/2024 Diagnosis: Chronic Hepatic Failure without coma Procedure: 1. Orthotopic Liver Transplant 2. Back Bench Preparation Donor Liver 3. Temporary portocaval shunt 4. Perihepatic packing for control of hemorrhage 5. Placement of external choledochal stent 6. Temporary abdominal closure Attending surgeons: Semaj Mcnair III, MD [employer] Barista Surgeon(s): Sveta Judge MD Findings: Whole organ placed in piggyback fashion with suprahepatic cava of donor to common orifice of all three hepatic veins for IVC anastomosis. Donor main portal vein to recipient main portal vein. Donor common hepatic artery to recipient right hepatic artery. Temporary abdominal with perihepatic packingfor control of hemorrhage. Externalization of bile duct with 8 Irish pediatric feeding tube. Portal Flow Modulation No [...] This donor was ABO O and UNOSID [id number], Match Run [id number]. This was a 42-year-old donation after circulatory [...] After completion of the outflow anastomosis, a Armenian clamp was placed across the donor suprahepatic [...] artery flows were then measured with the Tongda device. The portal flow was 3.4 L/min [...] do a temporary abdominal closure. An 8 Irish pediatric feeding tube was brought through the [...] Sveta Alves III, MD Anesthesia: General Staff: Firmware Engineer: Mak Maher RN; Marty Clark RN Scrub Person: ST Angela Resident: Thuy Leon MD store person: Jose Daniel Arana RRT Estimated Blood Loss: [...] (Removed) Number of days: 5 Surgery Information: -[facility]#: [id number] -ABO: O to O -Recipient: SLK candidate [...] 1:19 PM EDTAssociated Order(s): IP CONSULT TO MICROWAVE OVEN ASSEMBLER [facility] Transplant Discharge Education Note Assessment: Received [...] Gomez MSN, RN, NPD- Diabetes Education Office [phone] Schedule: M-F 8:00am-4:30pm * Ben Weiss, RD - 10/27/2024 4:06 PM EDTAssociated Order(s): IP CONSULT TO NUTRITION SERVICES; IP CONSULT TO NUTRITION SERVICES TXP - Initial [facility] Medical Nutrition Therapy Reason(s) for [...] I/O: +23.2L net volume. Last BM Date: (POLY OPERATOR). Admit Weight: 270 lb (122.5 kg) Current Weight: (!) 270 lb (122.5 kg) Pertinent Labs: Recent Labs 10/26/24164110/27/24 00110/27/24 1440 WBC 10.0 5.0 5.8 HGB 10.5* 8.5* 7.5* HCT 30.2* 23.9* 21.5* PLT 48* 35* 50* Recent Labs 10/26/24164110/27/241210/27/24 0800 NA 142 141 142 K 3.3* [...] TRANSPLANT N/A 10/25/2024 Procedure: LIVER TRANSPLANT; Surgeon: Semaj Mcnair III, MD; Location: OR; Service: Transplant; Laterality: [...] Based on DBW of 93.1 kg Kcals/day: 1999-6391 (25-30 kcals/kg) Protein g/day: 140-190 (1.5-2.0 g/kg) [...] Dietitian - Solid Organ Transplant Contact via Trust[employer] Chat * Lavell Kramer MD - 10/27/2024 11:09 AM EDTAssociated Order(s): INPATIENT CONSULT TO TRANSPLANT INFECTIOUS DISEASES Infectious Disease Consultation Patient: Blair Gilbert CSN: [id number] Assessment & Plan 39 y.o. M s/p [...] blood cx's if febrile Lavell Kramer MD [phone] Chief Complaint Long Qtc History of Present [...] Low Risk (07/09/2024) Received from [facility] Overall Financial Resource Strain (CARDIA) Difficulty [...] Answer (07/14/2024) Received from [facility] [place] [employer] - Occupational Stress Questionnaire [...] CRP No results found for: ESR Lab 10/25/24 2018 COLOR, URINE Yellow CLARITY Clear PROTEIN UA [...] Gilbert Date of Admit: 10/25/2024 Referring physician: Semaj Mcnair III, MD Chief Complaint Direct admission for [...] TRANSPLANT N/A 10/25/2024 Procedure: LIVER TRANSPLANT; Surgeon: Semaj Mcnair III, MD; Location: OR; Service: Transplant; Laterality: [...] to 4 times a day. DEXCOM G7 PANTRY STEWARD/STEWARDESS Misc Use reader as directed. DEXCOM G7 [...] and at bedtime. lancets (ACCU-CHEK SOFTCLIX LANCETS) [facility] Use to test blood sugar up to 4 times a day. methocarbamoL (ROBAXIN) 500 MG tablet Take 1 tablet (500 mg total) by mouth 3 times a day. mycophenolate (CELLCEPT) 250 mg capsule Take 2 capsules (500 mg total) by mouth 2 times a day. 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 No indications for PROJECT INTERNSHIP. Good UOP - Noted KT US WNL [...] preliminary until attending attestation. Lauren Santos, DNP, UNIFORM ATTENDANT, FORENSIC ECONOMIST- Transplant Nephrology [phone] Preferred contact: secure chat [1] Allergies Allergen [...] Gonzalez MD, MEd, FASN * Marcellus Hebert, INTEGRATION MANAGER, INDUSTRIAL GAS FITTER - 10/27/2024 10:21 AM EDT HEALTH Care Management/Social Work Assessment Patient Information Patient Name: Blair Gilbert Hospital Day: 2 Inpatient/Observation: Inpatient Admit Date: 10/25/2024 Admission Diagnosis: Liver transplant recipient (CMS-HCC) [Z94.4] Attending provider: Semaj Mcnair III, MD PCP: Enedina Mcguire NP Home Pharmacy: [facility] [address] [place] [address], [facility] [address] [address] [facility] [address] [facility] [id number] Issues related to obtaining medications: N/A Payor Information Medical Insurance Coverage: Payor: [facility] / Plan: [facility] / Product Type: *No [...] History: 12 weeks of CD Treatement at [facility] Do you need Substance Abuse Treatment [...] Was any abuse reported by patient?: No Kirkman Status & Connection to VA Services Status & Connection to VA Services Are you a ?: No Support Systems Emergency contact: Extended Emergency Contact Information Primary Emergency Contact: Abdiaziz Gilbert (next of kin) Mobile Relation: Spouse Secondary Emergency Contact: brown gilbert Mobile Relation: Brother Support Systems Primary Caregiver: Self Marital Status: Relative Search Completed: No Demographics Correct:: Yes Next of Kin: Abdiaziz Justin Next of Kin Relationship: Spouse Next of [...] resides with his spouse at their [address] [place] in [place]. 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 Patient's LNOK:Spouse, Abdiaziz Gilbert, Patient has no current or past history of suicidal/homicidal ideation. Patient has a history of mental health diagnoses, PTSD and Generalized Anxiety Disorder. Patient is connected with TransplantPsychiatrist and prescribed Prozac. Patient has a history of alcohol use and has completed 12 weeksof CD Treatment at [facility]. Spouse explained that he will complete a 6 month virtual program post transplant but could not recall the name of the program. Patient has no current tobacco use. No previous need or recommendation for home health care services and no previous placements at custodial facility and/or inpatient rehab program. Patient has [...] provider(s); financial interest(s) are disclosed as appropriate. Marcellus Hebert, INTEGRATION MANAGER, INDUSTRIAL GAS FITTER Phone Number: [phone] * John Moreno MD - 10/26/2024 3:41 AM EDT SURGICAL ICU CONSULT NOTE 10/26/2024 3:41 AM Name: Blair Gilbert CSN: [id number] HPI: Blair Gilbert is a 39 y.o. [...] at 9:00 PM naloxone (NARCAN) 4 mg/actuation [place] Apply 1 spray in one nostril if [...] % sodium chloride norepinephrine 18 mcg/min (10/26/24 6793) vasopressin 0.04 Units/min (10/26/24 0244) PRN Meds: [...] input(s): PHART , PCO2 , PO2ART , TDC5WUO , BEART in the last 72 hours. [...] at baseline or with provocation, shows no vxsno-bd-xhsy atrial level shunt. - Pulmonary arteries: Systolic [...] IV pantoprazole while intubated, NPO Last BM: POLY OPERATOR Bowel regimen: Senna/Miralax when able Nausea: Zofran PRN FLUID/ELECTROLYTES Recent Labs 10/25/242216 NA 137 K 2.1* CL 100 CO2 20* BUN 74* CREATININE 3.87* CALCIUM 9.3 PHOS 5.9* GLUCOSE 114* Intake/Output Summary (Last 24 hours) at 10/26/2024 0341 Last data filed at 10/26/2024 0326 Gross per 24 hour Intake 51751 ml Output 675 ml Net [id number] ml IV Fluids: EPINEPHrine (ADRENALIN) 10 mg [...] results for input(s): TEGANGLE , TEGKTIME , FMYRBLZZ81 , TEGMAXAMPL , TEGRTIME , CBMZ in [...] in sodium chloride 0.9% 100 mL IVPB (Nslh1Aew) 2 g Every 6 hours 10/26/2024 -- Admin Instructions: Use Pdje7Ewx Adapter - Mix Thoroughly Before Administration Notes to Pharmacy: On telephone recorder estimated creatinine clearance is 35.9 mL/min (A) (based on SCr of 3.87 mg/dL (H)). Route: Intravenous AMPicillin 2 g in sodium chloride 0.9% 100 mL IVPB (Qtir8Cpc) 2 g Once 10/26/2024 -- Admin Instructions: Use Spad5Uie Adapter - Mix Thoroughly Before Administration Notes to Pharmacy: On telephone recorder estimated creatinine clearance is 35.9 mL/min (A) (based on SCr of 3.87 mg/dL (H)). Route: Intravenous cefTRIAXone (ROCEPHIN) 2 g in sodium chloride 0.9 % 100 mL Gebc1Quz (Completed) 2 g Once 10/25/2024 10/26/2024 Admin Instructions: Use Qjli4Bgm Adapter - Mix Thoroughly Before Administration Route: [...] R IJ Mac Arterial Line? R radial Doniphan Urinary Catheter? Berkowitz - Reason: Adequate I/O [...] 47 (H) 10/26/2024 PO2ART 127 (H) 10/26/2024 MES3NBG 21 (L) 10/26/2024 BEART -5.4 (L) 10/26/2024 IVN9NZD 94.6 (L) 10/26/2024 N1STXDIF 98 10/26/2024 P:F ratio = 363 CARDIOVASCULAR: [...] Acute Care Surgery, and Surgical Critical Care [facility] Academic Office [phone] For Transfers, call [phone] documented in this encounter Nursing Notes * [...] Escalera, RONALDO - 10/31/2024 11:34 AM EDT [facility] Case Management/Social Work Department Progress Note [...] disease. PCP: Enedina Mcguire NP Home Pharmacy: [facility] [address] [facility] [address] [address] [facility] [address] [facility] [address] [facility] [place] [address] [place] [address] Medical Insurance Coverage: Payor: [employer] CARE / Plan: [employer] / Product Type: *No Product type* / Other Pertinent Information SW received report from Transplant medical team. SW completed chart review. Per report patient is not medically ready to discharge. Patient recommended for home PT/OT and 2x weekly labs. SW followed up on [facility] referrals and submitted a few more C referrals. Update: MEREDITH made nurse educator aware that there were no accepting [facility] agencies([facility], [facility], [facility]) and patient would need to outpatient for PT/OT and labs. Discharge Plan Anticipated discharge plan: Home with HHC vs Home with outpatient Anticipated discharge date: 11/01 CM/SW will continue to follow and remain available for discharge planning needs. NUBIA Escalera, RONALDO Cell [phone] * Plan of Care - Paulette Flannery [...] Citlaly Nova - 10/29/2024 1:53 PM EDT Health Case [...] disease. PCP: Enedina Mcguire NP Home Pharmacy: [facility] [address] [place] [address] [place] [address] [facility] [address] [facility] [address] [facility] [address] [address] Medical Insurance Coverage: Payor: [facility] / [facility] / Product Type: *No Product type* [...] SW submitted blanket HHC referral to [facility], [employer], [facility], and [facility]. Awaiting responses. SW to followpending [...] for discharge planning needs. Citlaly Nova MSW, [employer] Inpatient Business Banking Manager/Care Coordination [phone] * Plan of Care - Soco Yap [...] Escalera, RONALDO - 10/28/2024 2:29 PM EDT [facility] Case Management/Social Work Department Progress Note [...] disease. PCP: Enedina Mcguire NP Home Pharmacy: [facility] [address] [place] [id number] [address] [facility] [address] [facility] [address] [facility] [place] - [place] [address] [facility] [place] [id number] Medical Insurance Coverage: Payor: [facility] C[facility] / Plan: [employer] / [...] discharge planning needs. NUBIA Escalera, RONALDO Cell [phone] * Plan of Care - Elaine Carrillo [...] at all times. Outcome: Completed Problem: Non-violent, nya-khfe-ufuwlzzdgfl restraints Description: Less restrictive alternative interventions will [...] of medical procedures, or protection of medical officer psychiatry access. Outcome: Completed * Plan of Care [...] foods as appropriate. Outcome: Progressing Problem: Non-violent, edf-iuup-duquhqbjkcq restraints Description: Less restrictive alternative interventions will [...] of medical procedures, or protection of medical officer psychiatry access. Outcome: Progressing * Plan of Care - Shanel Shen RN - 10/27/2024 9:00 AM EDT Problem: Non-violent, fze-ggke-lspbvgvjgba restraints Description: Less restrictive alternative interventions will [...] - 10/26/2024 7:41 PM EDT Problem: Non-violent, vjh-cunf-kzpnduhwmut restraints Description: Less restrictive alternative interventions will [...] of medical procedures, or protection of medical officer psychiatry access. Outcome: Not Progressing Patient in bilateral [...] restraint flowsheet for further documentation. Problem: Non-violent, ggo-yssx-zyabrnclaee restraints Description: Less restrictive alternative interventions will [...] of medical procedures, or protection of medical officer psychiatry access. Outcome: Progressing * Plan of Care [...] Description 12/05/2024 8:01 AM EDT Hospital Encounter [facility] ENDOSCOPY [address] [place] [id number] Chris Orosco MD [address] [place] [phone] 12/05/2024 8:01 AM EDT - 12/05/2024 8:31 AM EDT Surgery [facility] ENDOSCOPY [address] [place] [address] Chris Orosco MD [address] [place] [phone] EGD Pending Results Name Type Priority Associated [...] Routine 10/31/2024 11:59 AM EDT US DUPLEX VAV-RVQMJR-TVNJNKP COMPLETE Routine 10/31/2024 10:19 AM EDT US [...] Routine 10/28/2024 5:31 PM EDT US DUPLEX PTX-IFVSTY-NGXCLOA COMPLETE STAT 10/28/2024 4:23 PM EDT US [...] Routine 10/27/2024 10:00 AM EDT US DUPLEX IYA-[id number] COMPLETE STAT 10/27/2024 9:51 AM EDT US [...] Acute kidney injury superimposed on CKD (CMS-HCC) CT RENAL ALTRNSPLJ IMPLTJ GRF W/RELISH BLENDER NEPHRECTOMY 10/27/2024 2:32 AM EDT Acute kidney [...] - 100 mg/dL 11/02/2024 5:45 PM EDT [facility] Blood 11/02/2024 5:44 PM EDT 11/02/2024 5:45 PM EDT us Semaj Mcnair III, MD POINT OF CARE TEST ORDERABLES Final Result [facility] [address] [facility]. [address] * (ABNORMAL) POC Glucose Monitoring Device (11/02/2024 3:34 PM EDT) POC Glucose Monitoring Device 208(H) 70 - 100 mg/dL 11/02/2024 3:35 PM EDT [facility] Blood 11/02/2024 3:34 PM EDT 11/02/2024 3:35 PM EDT Semaj Mcnair III, MD POINT OF CARE TEST ORDERABLES Final Result Performing Organization Address City/[facility]/ZIP Co de Phone Number [facility] [address] [facility]. [address] * (ABNORMAL) POC Glucose Monitoring Device (11/02/2024 1:18 PM EDT) POC Glucose Monitoring Device 225(H) 70 - 100 mg/dL 11/02/2024 1:19 PM EDT [facility] Blood 11/02/2024 1:18 PM EDT 11/02/2024 1:19 PM EDT Semaj Mcnair III, MD POINT OF CARE TEST ORDERABLES Final Result Performing Organization Address City/[facility]/ZIP Co de Phone Number [facility] [address] [facility]. [address] * (ABNORMAL) POC Glucose Monitoring Device (11/02/2024 8:59 AM EDT) POC Glucose Monitoring Device 129(H) 70 - 100 mg/dL 11/02/2024 9:00 AM EDT [facility] Blood 11/02/2024 8:59 AM EDT 11/02/2024 9:00 AM EDT Semaj Mcnair III, MD POINT OF CARE TEST ORDERABLES Final Result Performing Organization Address [facility] Co de Phone Number [facility] [address] * Tacrolimus level (11/02/2024 5:53 AM EDT) Tacrolimus (LC-MS) 7.4 3.0 - 15.0 ng/mL 11/02/2024 2:23 PM EDT [facility] Comment:Performed via liquid chromatography tandem mass spectrometry. Detection limit: 1 ng/mL. Individual target concentrations may vary due to target organ and time after transplant. This test has been developed and its performance characteristics determined by [facility] which is certified under the [...] Hospital/ZIP Co de Phone Number [facility] [address] [facility]. [address] * (ABNORMAL) Renal Function Panel w/EGFR (11/02/2024 5:53 AM EDT) Sodium 140 133 - 146 mmol/L 11/02/2024 6:47 AM EDT [facility] Potassium 3.3(L) 3.5 - 5.3 mmol/L 11/02/2024 6:47 AM EDT [facility] Chloride 107 98 - 110 mmol/L 11/02/2024 6:47 AM EDT [facility] CO2 25 21 - 33 mmol/L 11/02/2024 6:47 AM EDT [facility] Anion Gap 8 3 - 16 mmol/L 11/02/2024 6:47 AM EDT [facility] BUN 31(H) 7 - 25 mg/dL 11/02/2024 6:47 AM EDT [facility] Creatinine 1.08 0.60 - 1.30 mg/dL 11/02/2024 6:47 AM EDT [facility] Glucose 150(H) 70 - 100 mg/dL 11/02/2024 6:47 AM EDT [facility] Calcium 7.8(L) 8.6 - 10.3 mg/dL 11/02/2024 6:47 AM EDT [facility] Phosphorus 2.0(L) 2.1 - 4.7 mg/dL 11/02/2024 6:47 AM EDT [facility] Albumin 3.2(L) 3.5 - 5.7 g/dL 11/02/2024 6:47 AM EDT [facility] Osmolality, Calculated 299 278 - 305 mOsm/kg 11/02/2024 6:47 AM EDT [facility] EGFR 88 11/02/2024 6:47 AM EDT [facility] Comment:As of 2021, the estimated GFR [...] 11/02/2024 6:12 AM EDT us Beata Horner [facility] BLOOD ORDERABLES Denisse tori Result [facility] [address] * (ABNORMAL) Magnesium (11/02/2024 5:53 AM EDT) Magnesium 1.3(L) 1.5 - 2.5 mg/dL 11/02/2024 6:47 AM EDT [facility] Plasma 11/02/2024 5:53 AM EDT 11/02/2024 6:12 AM EDT Beata Horner [facility] BLOOD ORDERABLES Denisse l Result [facility] [address] [facility]. [address] * (ABNORMAL) Hepatic Function Panel (11/02/2024 5:53 AM EDT) Total Bilirubin 1.6(H) 0.0 - 1.5 mg/dL 11/02/2024 6:47 AM EDT [facility] Bilirubin, Direct 0.81(H) 0.00 - 0.40 mg/dL 11/02/2024 6:47 AM EDT [facility] AST 30 13 - 39 U/L 11/02/2024 6:47 AM EDT [facility] ALT 66(H) 7 - 52 U/L 11/02/2024 6:47 AM EDT [facility] Alkaline Phosphatase 126(H) 36 - 125 U/L 11/02/2024 6:47 AM EDT [facility] Total Protein 4.6(L) 6.4 - 8.9 g/dL 11/02/2024 6:47 AM EDT [facility] Albumin 3.2(L) 3.5 - 5.7 g/dL 11/02/2024 6:47 AM EDT [facility] Bilirubin, Indirect 0.79 0.00 - 1.10 mg/dL 11/02/2024 6:47 AM EDT [facility] Plasma 11/02/2024 5:53 AM EDT 11/02/2024 6:12 AM EDT us Beata Horner [facility] BLOOD ORDERABLES Denisse l Result [facility] [address] * (ABNORMAL) CBC (11/02/2024 5:53 AM EDT) WBC 5.8 3.8 - 10.8 10E3/uL 11/02/2024 6:21 AM EDT [facility] RBC 3.12(L) 4.20 - 5.80 10E6/uL 11/02/2024 6:21 AM EDT [facility] Hemoglobin 9.2(L) 13.2 - 17.1 g/dL 11/02/2024 6:21 AM EDT [facility] Hematocrit 27.5(L) 38.5 - 50.0 % 11/02/2024 6:21 AM EDT [facility] MCV 87.9 80.0 - 100.0 fL 11/02/2024 6:21 AM EDT [facility] MCH 29.5 27.0 - 33.0 pg 11/02/2024 6:21 AM EDT [facility] MCHC 33.5 32.0 - 36.0 g/dL 11/02/2024 6:21 AM EDT [facility] RDW 17.5(H) 11.0 - 15.0 % 11/02/2024 6:21 AM EDT [facility] Platelets 61(L) 140 - 400 10E3/uL 11/02/2024 6:21 AM EDT [facility] MPV 7.9 7.5 - 11.5 fL 11/02/2024 6:21 AM EDT [facility] Whole Blood 11/02/2024 5:53 AM EDT 11/02/2024 6:12 AM EDT Beata Dada Horner [facility] BLOOD ORDERABLES Denisse l Result [facility] [address] [place] [address], [facility] * (ABNORMAL) POC Glucose Monitoring Device (11/01/2024 9:26 PM EDT) POC Glucose Monitoring Device 199(H) 70 - 100 mg/dL 11/01/2024 9:27 PM EDT [facility] Blood 11/01/2024 9:26 PM EDT 11/01/2024 9:27 PM EDT Semaj Mcnair III, MD POINT OF CARE TEST ORDERABLES Final Result Performing Organization Address City/[facility]/ZIP Co de Phone Number [facility] [address] * (ABNORMAL) POC Glucose Monitoring Device (11/01/2024 5:04 PM EDT) POC Glucose Monitoring Device 255(H) 70 - 100 mg/dL 11/01/2024 5:05 PM EDT [facility] Blood 11/01/2024 5:04 PM EDT 11/01/2024 5:05 PM EDT Semaj Mcnair III, MD POINT OF CARE TEST ORDERABLES Final Result Performing Organization Address [facility] de Phone Number [facility] [address] * (ABNORMAL) Renal Function Panel w/EGFR, STAT (11/01/2024 2:17 PM EDT) Sodium 139 133 - 146 mmol/L 11/01/2024 3:10 PM EDT [facility] Potassium 3.3(L) 3.5 - 5.3 mmol/L 11/01/2024 3:10 PM EDT [facility] Chloride 107 98 - 110 mmol/L 11/01/2024 3:10 PM EDT [facility] CO2 24 21 - 33 mmol/L 11/01/2024 3:10 PM EDT [facility] Anion Gap 8 3 - 16 mmol/L 11/01/2024 3:10 PM EDT [facility] BUN 35(H) 7 - 25 mg/dL 11/01/2024 3:10 PM EDT [facility] Creatinine 1.22 0.60 - 1.30 mg/dL 11/01/2024 3:10 PM EDT [facility] Glucose 203(H) 70 - 100 mg/dL 11/01/2024 3:10 PM EDT [facility] Calcium 8.3(L) 8.6 - 10.3 mg/dL 11/01/2024 3:10 PM EDT [facility] Phosphorus 2.2 2.1 - 4.7 mg/dL 11/01/2024 3:10 PM EDT [facility] Albumin 3.4(L) 3.5 - 5.7 g/dL 11/01/2024 3:10 PM EDT [facility] Osmolality, Calculated 302 278 - 305 mOsm/kg 11/01/2024 3:10 PM EDT [facility] EGFR 76 11/01/2024 3:10 PM EDT [facility] Comment:As of 2021, the estimated GFR [...] LAB BLOOD ORDERABLES Final Result [facility] [address] [place] [address], [facility] * X-ray Portable Abdomen AP view [...] - 100 mg/dL 11/01/2024 12:23 PM EDT [facility] Blood 11/01/2024 12:2 2 PM EDT 11/01/2024 12:23 PM EDT Semaj Mcnair III, MD POINT OF CARE TEST ORDERABLES Final Result Performing Organization Address [facility] Co de Phone Number [facility] [address] * (ABNORMAL) POC Glucose Monitoring Device (11/01/2024 8:50 AM EDT) POC Glucose Monitoring Device 175(H) 70 - 100 mg/dL 11/01/2024 8:51 AM EDT [facility] Blood 11/01/2024 8:50 AM EDT 11/01/2024 8:51 AM EDT Semaj Mcnair III, MD POINT OF CARE TEST ORDERABLES Final Result Performing Organization Address [facility] Phone Number [facility] [address] * Tacrolimus level (11/01/2024 6:01 AM EDT) Tacrolimus (LC-MS) 7.5 3.0 - 15.0 ng/mL 11/01/2024 12:14 PM EDT [facility] Comment:Performed via liquid chromatography tandem mass spectrometry. Detection limit: 1 ng/mL. Individual target concentrations may vary due to target organ and time after transplant. This test has been developed and its performance characteristics determined by [facility] which is certified under the [...] ORDERABLES Denisse l Result Performing Organization Address [facility] Co de Phone Number [facility] [address] [place] [address], [facility] * (ABNORMAL) Renal Function Panel w/EGFR (11/01/2024 6:01 AM EDT) Sodium 139 133 - 146 mmol/L 11/01/2024 6:57 AM EDT [facility] Potassium 3.3(L) 3.5 - 5.3 mmol/L 11/01/2024 6:57 AM EDT [facility] Chloride 108 98 - 110 mmol/L 11/01/2024 6:57 AM EDT [facility] CO2 22 21 - 33 mmol/L 11/01/2024 6:57 AM EDT [facility] Anion Gap 9 3 - 16 mmol/L 11/01/2024 6:57 AM EDT [facility] BUN 37(H) 7 - 25 mg/dL 11/01/2024 6:57 AM EDT [facility] Creatinine 1.30 0.60 - 1.30 mg/dL 11/01/2024 6:57 AM EDT [facility] Glucose 163(H) 70 - 100 mg/dL 11/01/2024 6:57 AM EDT [facility] Calcium 8.2(L) 8.6 - 10.3 mg/dL 11/01/2024 6:57 AM EDT [facility] Phosphorus 2.9 2.1 - 4.7 mg/dL 11/01/2024 6:57 AM EDT [facility] Albumin 3.1(L) 3.5 - 5.7 g/dL 11/01/2024 6:57 AM EDT [facility] Osmolality, Calculated 300 278 - 305 mOsm/kg 11/01/2024 6:57 AM EDT [facility] EGFR 71 11/01/2024 6:57 AM EDT [facility] Comment:As of 2021, the estimated GFR [...] 6:01 AM EDT 11/01/2024 6:20 AM EDT [employer] [facility] BLOOD ORDERABLES Denisse l Result Performing Organization Address City/[facility]/ZIP Co de Phone Number [facility] [address] [facility]. [address] * Magnesium (11/01/2024 6:01 AM EDT) Magnesium 1.5 1.5 - 2.5 mg/dL 11/01/2024 6:57 AM EDT [facility] Plasma 11/01/2024 6:01 AM EDT 11/01/2024 6:20 AM EDT [employer] [facility] BLOOD ORDERABLES Denisse l Result Performing Organization Address [facility] Co de Phone Number [facility] [address] [facility]. [address] * (ABNORMAL) Hepatic Function Panel (11/01/2024 6:01 AM EDT) Total Bilirubin 2.0(H) 0.0 - 1.5 mg/dL 11/01/2024 6:57 AM EDT [facility] Bilirubin, Direct 1.06(H) 0.00 - 0.40 mg/dL 11/01/2024 6:57 AM EDT [facility] AST 21 13 - 39 U/L 11/01/2024 6:57 AM EDT [facility] ALT 62(H) 7 - 52 U/L 11/01/2024 6:57 AM EDT [facility] Alkaline Phosphatase 114 36 - 125 U/L 11/01/2024 6:57 AM EDT [facility] Total Protein 4.6(L) 6.4 - 8.9 g/dL 11/01/2024 6:57 AM EDT [facility] Albumin 3.1(L) 3.5 - 5.7 g/dL 11/01/2024 6:57 AM EDT [facility] Bilirubin, Indirect 0.94 0.00 - 1.10 mg/dL 11/01/2024 6:57 AM EDT [facility] Plasma 11/01/2024 6:01 AM EDT 11/01/2024 6:20 AM EDT us Beata Horner [facility] BLOOD ORDERABLES Denisse valle Result [facility] [address] [place] [address], [facility] * (ABNORMAL) CBC (11/01/2024 6:01 AM EDT) WBC 5.9 3.8 - 10.8 10E3/uL 11/01/2024 6:29 AM EDT [facility] RBC 3.19(L) 4.20 - 5.80 10E6/uL 11/01/2024 6:29 AM EDT [facility] Hemoglobin 9.5(L) 13.2 - 17.1 g/dL 11/01/2024 6:29 AM EDT [facility] Hematocrit 27.8(L) 38.5 - 50.0 % 11/01/2024 6:29 AM EDT [facility] MCV 87.1 80.0 - 100.0 fL 11/01/2024 6:29 AM EDT [facility] MCH 29.9 27.0 - 33.0 pg 11/01/2024 6:29 AM EDT [facility] MCHC 34.3 32.0 - 36.0 g/dL 11/01/2024 6:29 AM EDT [facility] RDW 17.4(H) 11.0 - 15.0 % 11/01/2024 6:29 AM EDT [facility] Platelets 56(L) 140 - 400 10E3/uL 11/01/2024 6:29 AM EDT [facility] MPV 8.3 7.5 - 11.5 fL 11/01/2024 6:29 AM EDT [facility] Whole Blood 11/01/2024 6:01 AM EDT 11/01/2024 6:19 AM EDT [facility] [place] [facility] BLOOD ORDERABLES Denisse l Result [facility] [address] [facility] * (ABNORMAL) POC Glucose Monitoring Device (10/31/2024 9:15 PM EDT) POC Glucose Monitoring Device 171(H) 70 - 100 mg/dL 10/31/2024 9:15 PM EDT [facility] Blood 10/31/2024 9:15 PM EDT 10/31/2024 9:15 PM EDT Semaj Mcnair III, MD POINT OF CARE TEST ORDERABLES Final Result Performing Organization Address City/[facility] Hospital/ZIP Co de Phone Number [facility] [address] [facility]. [address] * (ABNORMAL) POC Glucose Monitoring Device (10/31/2024 5:56 PM EDT) POC Glucose Monitoring Device 179(H) 70 - 100 mg/dL 10/31/2024 5:57 PM EDT [facility] Blood 10/31/2024 5:56 PM EDT 10/31/2024 5:57 PM EDT Semaj Mcnair III, MD POINT OF CARE TEST ORDERABLES Final Result [facility] [address] [facility]. [address] * CT Abdomen and Pelvis WO [...] Adrenal gland: No focal nodule seen. Kidneys: [place] kidneys noted with nonobstructing calcifications on the right. Findings of postsurgical changes in the left grindstone kidney. Mild right hydronephrosis without an obstructive [...] Adrenal gland: No focal nodule seen. Kidneys: [place] kidneys noted with nonobstructing calcifications on theright. Findings of postsurgical changes in the left grindstone kidney. Mildright hydronephrosis without an obstructive course [...] QT: 400 ms QTc: 456 ms P Pal[place]: 49 degrees R Palco: 3 degrees T [place]co: 14 degrees Diagnosis Line: NORMAL SINUS RHYTHM ^ NORMAL ECG ^ ^ Confirmed by MD JEANETTE, TORI ([id number]) on 11/02/2024 6:56:52 AM Priti Geiger CNP ECG ORDERABLES Final Result MUSE * (ABNORMAL) Urinalysis w/Rfl to Microscopic (10/31/2024 1:18 PM EDT) Color, UA Straw Yellow,Straw 10/31/2024 1:46 PM EDT [facility] Clarity, UA Clear Clear 10/31/2024 1:46 PM EDT [facility] Specific [place], UA 1.013 1.005 - 1.035 10/31/2024 1:46 PM EDT [facility] pH, UA 6.5 5.0 - 8.0 10/31/2024 1:46 PM EDT [facility] Protein, UA Negative Negative mg/dL 10/31/2024 1:46 PM EDT [facility] Glucose, UA Negative Negative mg/dL 10/31/2024 1:46 PM EDT [facility] Ketones, UA Negative Negative mg/dL 10/31/2024 1:46 PM EDT [facility] Bilirubin, UA Negative Negative 10/31/2024 1:46 PM EDT [facility] Blood, UA Large(A) Negative 10/31/2024 1:46 PM EDT [facility] Nitrite, UA Negative Negative 10/31/2024 1:46 PM EDT [facility] Urobilinogen, UA <2.0 0.2 - 1.9 mg/dL 10/31/2024 1:46 PM EDT [facility] Leukocyte Esterase, UA Negative Negative 10/31/2024 1:46 PM EDT [facility] RBC, UA >100(H) 0 - 3 /HPF 10/31/2024 1:46 PM EDT [facility] WBC, UA 3 0 - 5 /HPF 10/31/2024 1:46 PM EDT [facility] Hyaline Casts, UA 3(H) 0 - 2 /LPF 10/31/2024 1:46 PM EDT [facility] Urine 10/31/2024 1:18 PM EDT 10/31/2024 1:32 PM EDT Priti Geiger CNP URINE ORDERABLES Final Result Performing Organization Address [facility] Co de Phone Number [facility] [address] * (ABNORMAL) Post Kidney Transplant Urine Culture (10/31/2024 1:18 PM EDT) Culture Result Enterococcus faecium, Vancomycin Resistant(A) [facility] Comment: 1,000- <10,000 cfu/mL Identified by MALDI-TOF MS Testing Performed at Laboratory The critical result was called to, and read back by, licensed caregiver Rickey Lin RN 11/02/24 0850 [place]EN[place] Midstream Urine URINE SPECIMEN / Unknown 10/31/2024 1:18 PM EDT 10/31/2024 1:59 PM EDT Narrative Organism Antibiotic Method Susceptibility Enterococcus faecium, vancomycin resistant Ampicillin SARMAD >=32: Resistant Enterococcus faecium, vancomycin resistant Doxycycline SRAMAD >=16: Resistant Enterococcus faecium, vancomycin resistant Linezolid SARMAD 2: Susceptible Enterococcus faecium, vancomycin resistant Nitrofurant oin SARMAD 64: Intermediate Enterococcus faecium, vancomycin resistant Vancomycin SARMAD >=32: Resistant Comment:See Results Priti Geiger CNP MICROBIOLOGY - GENERAL ORDERA BLES Final Result Performing Organization Address [facility] Co de Phone Number [facility] [address] [place] [address] * (ABNORMAL) POC Glucose Monitoring Device (10/31/2024 11:59 AM EDT) POC Glucose Monitoring Device 130(H) 70 - 100 mg/dL 10/31/2024 12:21 PM EDT [facility] Blood 10/31/2024 11:5 9 AM EDT 10/31/2024 12:21 PM EDT Semaj Mcnair III, MD POINT OF CARE TEST ORDERABLES Final Result [facility] [address] [place] [address], [facility] * US Abdomen Limited (10/31/2024 10:19 [...] EXAM: US ABDOMEN LIMITED EXAM: US DUPLEX [id number] COMPLETE INDICATION: Post-op liver transplant COMPARISON: None [...] visualized secondary to poor acoustic windows. The grindstone right kidney measures 11.6 cm in length. [...] EXAM: US ABDOMEN LIMITED EXAM: US DUPLEX [id number] COMPLETE INDICATION: Post-op liver transplant COMPARISON: None [...] well visualized secondary to poor acousticwindows. The grindstone right kidney measures 11.6 cm in length. [...] at 10/31/2024 10:35 AM EDT Beata Horner [facility] US ORDERABLES Final R [...] 10/31/2024 10:29 AM EDT us Beata Horner [facility] US ORDERABLES Final R esult * US Duplex [id number] Comp (10/31/2024 10:19 AM EDT) Anatomical Region [...] EXAM: US ABDOMEN LIMITED EXAM: US DUPLEX [id number] COMPLETE INDICATION: Post-op liver transplant COMPARISON: None [...] visualized secondary to poor acoustic windows. The grindstone right kidney measures 11.6 cm in length. [...] EXAM: US ABDOMEN LIMITED EXAM: US DUPLEX [id number] COMPLETE INDICATION: Post-op liver transplant COMPARISON: None [...] well visualized secondary to poor acousticwindows. The grindstone right kidney measures 11.6 cm in length. [...] at 10/31/2024 10:35 AM EDT Beata Horner [facility] US ORDERABLES Final R esult * ECG 12-lead (MUSE) (10/31/2024 8:57 AM EDT) 10/31/2024 8:57 AM EDT Narrative MUSE - 11/01/2024 9:21 AM EDT Ventricular Rate: 83 BPM Atrial Rate: 83 BPM P-R Interval: 168 ms QRS Duration: 102 ms QT: 392 ms QTc: 460 ms P Palco: 64 degrees R Palco: -18 degrees T Palco: 7 degrees Diagnosis Line: NORMAL SINUS RHYTHM ^ NORMAL ECG ^ ^ Confirmed by MD JOE, OTIS ([id number]) on 11/01/2024 9:21:13 AM us Priti Geiger [employer] ECG ORDERABLES Final Result MUSE * (ABNORMAL) POC Glucose Monitoring Device (10/31/2024 8:44 AM EDT) [facility] POC Glucose Monitoring Device 145(H) 70 - 100 mg/dL 10/31/2024 8:45 AM EDT [facility] Blood 10/31/2024 8:44 AM EDT 10/31/2024 8:44 AM EDT Semaj Mcnair III, MD POINT OF CARE TEST ORDERABLES Final Result Performing Organization Address [facility] Co de Phone Number [facility] [address] [facility]. [address] * Tacrolimus level (10/31/2024 6:40 AM EDT) [facility] Tacrolimus (LC-MS) 8.4 3.0 - 15.0 ng/mL 10/31/2024 10:05 AM EDT [facility] Comment:Performed via liquid chromatography tandem mass spectrometry. Detection limit: 1 ng/mL. Individual target concentrations may vary due to target organ and time after transplant. This test has been developed and its performance characteristics determined by [facility] which is certified under the [...] Hospital/ZIP Co de Phone Number [facility] [address] * (ABNORMAL) Renal Function Panel w/EGFR (10/31/2024 6:40 AM EDT) [facility] Sodium 141 133 - 146 mmol/L 10/31/2024 8:09 AM EDT [facility] Potassium 3.5 3.5 - 5.3 mmol/L 10/31/2024 8:09 AM EDT [facility] Chloride 111(H) 98 - 110 mmol/L 10/31/2024 8:09 AM EDT [facility] CO2 20(L) 21 - 33 mmol/L 10/31/2024 8:09 AM EDT [facility] Anion Gap 10 3 - 16 mmol/L 10/31/2024 8:09 AM EDT [facility] BUN 54(H) 7 - 25 mg/dL 10/31/2024 8:09 AM EDT [facility] Creatinine 1.75(H) 0.60 - 1.30 mg/dL 10/31/2024 8:09 AM EDT [facility] Glucose 136(H) 70 - 100 mg/dL 10/31/2024 8:09 AM EDT [facility] Calcium 8.7 8.6 - 10.3 mg/dL 10/31/2024 8:09 AM EDT [facility] Phosphorus 4.1 2.1 - 4.7 mg/dL 10/31/2024 8:09 AM EDT [facility] Albumin 3.2(L) 3.5 - 5.7 g/dL 10/31/2024 8:09 AM EDT [facility] Osmolality, Calculated 309(H) 278 - 305 mOsm/kg 10/31/2024 8:09 AM EDT [facility] EGFR 50 10/31/2024 8:09 AM EDT [facility] Comment:As of 2021, the estimated GFR [...] AM EDT 10/31/2024 7:35 AM EDT Beata Dada Horner [facility] BLOOD ORDERABLES Denisse l Result Performing Organization Address City/[facility]/ZIP Co de Phone Number [facility] [address] [facility]. [address] * Magnesium (10/31/2024 6:40 AM EDT) Magnesium 1.8 1.5 - 2.5 mg/dL 10/31/2024 8:09 AM EDT [facility] Plasma 10/31/2024 6:40 AM EDT 10/31/2024 7:35 AM EDT [facility] Dada Horner [facility] BLOOD ORDERABLES Denisse l Result Performing Organization Address [facility] de Phone Number [facility] [address] [facility] * (ABNORMAL) Hepatic Function Panel (10/31/2024 6:40 AM EDT) Total Bilirubin 2.7(H) 0.0 - 1.5 mg/dL 10/31/2024 8:09 AM EDT [facility] Bilirubin, Direct 1.57(H) 0.00 - 0.40 mg/dL 10/31/2024 8:09 AM EDT [facility] AST 26 13 - 39 U/L 10/31/2024 8:09 AM EDT [facility] ALT 68(H) 7 - 52 U/L 10/31/2024 8:09 AM EDT [facility] Alkaline Phosphatase 112 36 - 125 U/L 10/31/2024 8:09 AM EDT [facility] Total Protein 4.7(L) 6.4 - 8.9 g/dL 10/31/2024 8:09 AM EDT [facility] Albumin 3.2(L) 3.5 - 5.7 g/dL 10/31/2024 8:09 AM EDT [facility] Bilirubin, Indirect 1.13(H) 0.00 - 1.10 mg/dL 10/31/2024 8:09 AM EDT [facility] Plasma 10/31/2024 6:40 AM EDT 10/31/2024 7:35 AM EDT us Beata Horner [facility] BLOOD ORDERABLES Denisse l Result [facility] [address] [place] [address], [facility] * (ABNORMAL) CBC (10/31/2024 6:40 AM EDT) WBC 6.0 3.8 - 10.8 10E3/uL 10/31/2024 8:05 AM EDT [facility] RBC 3.14(L) 4.20 - 5.80 10E6/uL 10/31/2024 8:05 AM EDT [facility] Hemoglobin 9.6(L) 13.2 - 17.1 g/dL 10/31/2024 8:05 AM EDT [facility] Hematocrit 27.5(L) 38.5 - 50.0 % 10/31/2024 8:05 AM EDT [facility] MCV 87.6 80.0 - 100.0 fL 10/31/2024 8:05 AM EDT [facility] MCH 30.7 27.0 - 33.0 pg 10/31/2024 8:05 AM EDT [facility] MCHC 35.0 32.0 - 36.0 g/dL 10/31/2024 8:05 AM EDT [facility] RDW 17.9(H) 11.0 - 15.0 % 10/31/2024 8:05 AM EDT [facility] Platelets 44(L) 140 - 400 10E3/uL 10/31/2024 8:05 AM EDT [facility] Comment: CNV Specimen checked for clots. None detected. MPV 8.9 7.5 - 11.5 fL 10/31/2024 8:05 AM EDT [facility] Whole Blood 10/31/2024 6:40 AM EDT 10/31/2024 7:34 AM EDT us Beata Horner [facility] BLOOD ORDERABLES Denisse l Result Performing Organization Address City/[facility]/ZIP Co de Phone Number [facility] [address] [facility]. [address] * (ABNORMAL) POC Glucose Monitoring Device (10/30/2024 9:01 PM EDT) POC Glucose Monitoring Device 144(H) 70 - 100 mg/dL 10/30/2024 9:02 PM EDT [facility] Blood 10/30/2024 9:01 PM EDT 10/30/2024 9:01 PM EDT us Semaj Mcnair III, MD POINT OF CARE TEST ORDERABLES Final Result Performing Organization Address [facility] Co de Phone Number [facility] [address] [facility]. [address] * (ABNORMAL) POC Glucose Monitoring Device (10/30/2024 5:37 PM EDT) POC Glucose Monitoring Device 124(H) 70 - 100 mg/dL 10/30/2024 5:47 PM EDT [facility] Blood 10/30/2024 5:37 PM EDT 10/30/2024 5:47 PM EDT us Semaj Mcnair III, MD POINT OF CARE TEST ORDERABLES Final Result Performing Organization Address City/[facility]/ZIP Co de Phone Number [facility] [address] [facility]. [address] * (ABNORMAL) POC Glucose Monitoring Device (10/30/2024 7:26 AM EDT) POC Glucose Monitoring Device 150(H) 70 - 100 mg/dL 10/30/2024 7:27 AM EDT [facility] Blood 10/30/2024 7:26 AM EDT 10/30/2024 7:27 AM EDT Semaj Mcnair III, MD POINT OF CARE TEST ORDERABLES Final Result Performing Organization Address [facility] Co de Phone Number [facility] [address] [facility]. [address] * Tacrolimus level (10/30/2024 7:13 AM EDT) Tacrolimus (LC-MS) 9.5 3.0 - 15.0 ng/mL 10/30/2024 2:53 PM EDT [facility] Comment:Performed via liquid chromatography tandem mass spectrometry. Detection limit: 1 ng/mL. Individual target concentrations may vary due to target organ and time after transplant. This test has been developed and its performance characteristics determined by [facility] which is certified under the Clinical Laboratory [...] 7:13 AM EDT 10/30/2024 7:26 AM EDT Mikhail Abi [facility] BLOOD ORDERABLES Final Re sult Performing Organization Address [facility] Co de Phone Number [facility] [address] [facility]. [address] * ECG 12-lead (MUSE) (10/30/2024 6:51 AM EDT) 10/30/2024 6:51 AM EDT Narrative MUSE - 11/01/2024 9:21 AM EDT Ventricular Rate: 92 BPM Atrial Rate: 92 BPM P-R Interval: 174 ms QRS Duration: 96 ms QT: 376 ms QTc: 464 ms P [place]: 54 degrees R [place]: -24 degrees T Palco: 11 degrees Diagnosis Line: NORMAL SINUS RHYTHM ^ NORMAL ECG ^ ^ Confirmed by MD JOE, OTIS ([id number]) on 11/01/2024 9:21:09 AM Priti Geiger [employer] ECG ORDERABLES Final Result MUSE * (ABNORMAL) Renal Function Panel w/EGFR (10/30/2024 5:41 AM EDT) Sodium 140 133 - 146 mmol/L 10/30/2024 6:18 AM EDT [facility] Potassium 3.8 3.5 - 5.3 mmol/L 10/30/2024 6:18 AM EDT [facility] Chloride 111(H) 98 - 110 mmol/L 10/30/2024 6:18 AM EDT [facility] CO2 17(L) 21 - 33 mmol/L 10/30/2024 6:18 AM EDT [facility] Anion Gap 12 3 - 16 mmol/L 10/30/2024 6:18 AM EDT [facility] BUN 62(H) 7 - 25 mg/dL 10/30/2024 6:18 AM EDT [facility] Creatinine 1.96(H) 0.60 - 1.30 mg/dL 10/30/2024 6:18 AM EDT [facility] Glucose 116(H) 70 - 100 mg/dL 10/30/2024 6:18 AM EDT [facility] Calcium 9.0 8.6 - 10.3 mg/dL 10/30/2024 6:18 AM EDT [facility] Phosphorus 4.6 2.1 - 4.7 mg/dL 10/30/2024 6:18 AM EDT [facility] Albumin 3.2(L) 3.5 - 5.7 g/dL 10/30/2024 6:18 AM EDT [facility] Osmolality, Calculated 309(H) 278 - 305 mOsm/kg 10/30/2024 6:18 AM EDT [facility] EGFR 43 10/30/2024 6:18 AM EDT [facility] Comment:As of 2021, the estimated GFR [...] 5:41 AM EDT 10/30/2024 5:47 AM EDT [employer] [facility] BLOOD ORDERABLES Denisse l Result [facility] [address] [facility] * Magnesium (10/30/2024 5:41 AM EDT) Magnesium 2.2 1.5 - 2.5 mg/dL 10/30/2024 6:18 AM EDT [facility] Plasma 10/30/2024 5:41 AM EDT 10/30/2024 5:47 AM EDT [facility] BLOOD ORDERABLES Denisse l Result Performing Organization Address [facility]/ZIP Co de Phone Number [facility] [address] [facility] * (ABNORMAL) Hepatic Function Panel (10/30/2024 5:41 AM EDT) Total Bilirubin 3.6(H) 0.0 - 1.5 mg/dL 10/30/2024 6:18 AM EDT [facility] Bilirubin, Direct 1.95(H) 0.00 - 0.40 mg/dL 10/30/2024 6:18 AM EDT [facility] AST 33 13 - 39 U/L 10/30/2024 6:18 AM EDT [facility] ALT 71(H) 7 - 52 U/L 10/30/2024 6:18 AM EDT [facility] Alkaline Phosphatase 80 36 - 125 U/L 10/30/2024 6:18 AM EDT [facility] Total Protein 4.8(L) 6.4 - 8.9 g/dL 10/30/2024 6:18 AM EDT [facility] Albumin 3.2(L) 3.5 - 5.7 g/dL 10/30/2024 6:18 AM EDT [facility] Bilirubin, Indirect 1.65(H) 0.00 - 1.10 mg/dL 10/30/2024 6:18 AM EDT [facility] Plasma 10/30/2024 5:41 AM EDT 10/30/2024 5:47 AM EDT us Beata Horner [facility] BLOOD ORDERABLES Denisse valle Result [facility] [address] [place] [address], [facility] * (ABNORMAL) CBC (10/30/2024 5:41 AM EDT) WBC 8.1 3.8 - 10.8 10E3/uL 10/30/2024 8:06 AM EDT [facility] RBC 3.29(L) 4.20 - 5.80 10E6/uL 10/30/2024 8:06 AM EDT [facility] Hemoglobin 10.1(L) 13.2 - 17.1 g/dL 10/30/2024 8:06 AM EDT [facility] Hematocrit 28.8(L) 38.5 - 50.0 % 10/30/2024 8:06 AM EDT [facility] MCV 87.6 80.0 - 100.0 fL 10/30/2024 8:06 AM EDT [facility] MCH 30.6 27.0 - 33.0 pg 10/30/2024 8:06 AM EDT [facility] MCHC 34.9 32.0 - 36.0 g/dL 10/30/2024 8:06 AM EDT [facility] RDW 18.1(H) 11.0 - 15.0 % 10/30/2024 8:06 AM EDT [facility] Platelets 44(L) 140 - 400 10E3/uL 10/30/2024 8:06 AM EDT [facility] Comment: CNV Specimen checked for clots. None detected. MPV 8.3 7.5 - 11.5 fL 10/30/2024 8:06 AM EDT [facility] Whole Blood 10/30/2024 5:41 AM EDT 10/30/2024 5:50 AM EDT Beata Horner [facility] BLOOD ORDERABLES Denisse l Result [facility] [address] [facility] * (ABNORMAL) POC Glucose Monitoring Device (10/29/2024 10:18 PM EDT) POC Glucose Monitoring Device 140(H) 70 - 100 mg/dL 10/29/2024 10:18 PM EDT [facility] Blood 10/29/2024 10:1 8 PM EDT 10/29/2024 10:18 PM EDT Semaj Mcnair III, MD POINT OF CARE TEST ORDERABLES Final Result Performing Organization Address [facility] Co de Phone Number [facility] [address] [facility]. [address] * (ABNORMAL) POC Glucose Monitoring Device (10/29/2024 6:42 PM EDT) POC Glucose Monitoring Device 152(H) 70 - 100 mg/dL 10/29/2024 6:43 PM EDT [facility] Blood 10/29/2024 6:42 PM EDT 10/29/2024 6:43 PM EDT Semaj Mcnair III, MD POINT OF CARE TEST ORDERABLES Final Result Performing Organization Address City/[facility]/ZIP Co de Phone Number [facility] [address] [facility]. [address] * (ABNORMAL) POC Glucose Monitoring Device (10/29/2024 11:35 AM EDT) [facility] POC Glucose Monitoring Device 130(H) 70 - 100 mg/dL 10/29/2024 11:36 AM EDT [facility] Blood 10/29/2024 11:3 5 AM EDT 10/29/2024 11:36 AM EDT Semaj Mcnair III, MD POINT OF CARE TEST ORDERABLES Final Result Performing Organization Address City/[facility] Co de Phone Number [facility] [address] * ECG 12 lead (MUSE) (10/29/2024 9:34 AM EDT) 10/29/2024 9:34 AM EDT Narrative MUSE - 10/29/2024 10:34 PM EDT Ventricular Rate: 97 BPM Atrial Rate: 97 BPM P-R Interval: 186 ms QRS Duration: 104 ms QT: 382 ms QTc: 485 ms P [place]: 54 degrees R [place]: -21 degrees T [place]: 1 degrees Diagnosis Line: NORMAL SINUS RHYTHM ^ NORMAL ECG ^ Confirmed by JORGE MACIAS ([id number]) on 10/29/2024 10:34:50 PM Afshan Bear MD ECG ORDERABLES Final Result Performing Organization Address [facility] de Phone Number MUSE * Tacrolimus level (10/29/2024 8:08 AM EDT) [facility] Tacrolimus (LC-MS) 10.4 3.0 - 15.0 ng/mL 10/29/2024 2:07 PM EDT [facility] Comment:Performed via liquid chromatography tandem mass spectrometry. Detection limit: 1 ng/mL. Individual target concentrations may vary due to target organ and time after transplant. This test has been developed and its performance characteristics determined by [facility] which is certified under the [...] EDT 10/29/2024 8:21 AM EDT Priti Geiger [facility] BLOOD ORDERABLES Final Re sult Performing Organization Address City/[facility]/ZIP Co de Phone Number [facility] [address] * Prepare RBC, leukoreduced, 1 Units (10/29/2024 6:16 AM EDT) Product Code F9270M46 HCLL Unit Number [id number] HCLL Dispense Status Presumed Transfused_PT HCLL Blood Expiration Date [id number] HCLL Coding System [id number] HCLL Blood Bank Product Shay Plata MD BLOOD BANK PRODUCT O RDERABLES Final Result Performing Organization Address [facility] Co de Phone Number HCLL * Prepare RBC, leukoreduced, 1 Units (10/29/2024 6:15 AM EDT) Product Code B4359L43 HCLL Unit Number [id number] HCLL Dispense Status Presumed Transfused_PT HCLL Blood Expiration Date [id number] HCLL Coding System [id number] HCLL Blood Bank Product Carlos Marks MD BLOOD BANK PRODUCT ORDERABL ES Final Result Performing Organization Address [facility] Co de Phone Number HCLL * Prepare RBC, leukoreduced, 1 Units (10/29/2024 6:15 AM EDT) Product Code V3403I76 HCLL Unit Number [id number] HCLL Dispense Status Presumed Transfused_PT HCLL Blood Expiration Date [id number] HCLL Coding System [id number] HCLL Blood Bank Product John Moreno MD BLOOD BANK PRODUCT ORDERABLE S Final Result HCLL * (ABNORMAL) Renal Function Panel w/EGFR (10/29/2024 5:07 AM EDT) Sodium 144 133 - 146 mmol/L 10/29/2024 5:49 AM EDT [facility] Potassium 3.8 3.5 - 5.3 mmol/L 10/29/2024 5:49 AM EDT [facility] Chloride 113(H) 98 - 110 mmol/L 10/29/2024 5:49 AM EDT [facility] CO2 17(L) 21 - 33 mmol/L 10/29/2024 5:49 AM EDT [facility] Anion Gap 14 3 - 16 mmol/L 10/29/2024 5:49 AM EDT [facility] BUN 57(H) 7 - 25 mg/dL 10/29/2024 5:49 AM EDT [facility] Creatinine 1.93(H) 0.60 - 1.30 mg/dL 10/29/2024 5:49 AM EDT [facility] Glucose 110(H) 70 - 100 mg/dL 10/29/2024 5:49 AM EDT [facility] Calcium 9.3 8.6 - 10.3 mg/dL 10/29/2024 5:49 AM EDT [facility] Phosphorus 4.8(H) 2.1 - 4.7 mg/dL 10/29/2024 5:49 AM EDT [facility] Albumin 3.5 3.5 - 5.7 g/dL 10/29/2024 5:49 AM EDT [facility] Osmolality, Calculated 314(H) 278 - 305 mOsm/kg 10/29/2024 5:49 AM EDT [facility] EGFR 44 10/29/2024 5:49 AM EDT [facility] Comment:As of 2021, the estimated GFR [...] AM EDT 10/29/2024 5:13 AM EDT Beata Garland Evens [facility] BLOOD ORDERABLES Denisse l Result Performing Organization Address City/[facility]/ZIP Co de Phone Number [facility] [address] [place] [address]. [address] * Magnesium (10/29/2024 5:07 AM EDT) Magnesium 2.1 1.5 - 2.5 mg/dL 10/29/2024 5:49 AM EDT [facility] Plasma 10/29/2024 5:07 AM EDT 10/29/2024 5:13 AM EDT [facility] BLOOD ORDERABLES Denisse l Result Performing Organization Address [facility]/ZIP Co de Phone Number [facility] [address] [place] [address]. [address] * (ABNORMAL) Hepatic Function Panel (10/29/2024 5:07 AM EDT) Total Bilirubin 4.2(H) 0.0 - 1.5 mg/dL 10/29/2024 5:49 AM EDT [facility] Bilirubin, Direct 2.85(H) 0.00 - 0.40 mg/dL 10/29/2024 5:49 AM EDT [facility] AST 31 13 - 39 U/L 10/29/2024 5:49 AM EDT [facility] ALT 88(H) 7 - 52 U/L 10/29/2024 5:49 AM EDT [facility] Alkaline Phosphatase 51 36 - 125 U/L 10/29/2024 5:49 AM EDT [facility] Total Protein 5.2(L) 6.4 - 8.9 g/dL 10/29/2024 5:49 AM EDT [facility] Albumin 3.5 3.5 - 5.7 g/dL 10/29/2024 5:49 AM EDT [facility] Bilirubin, Indirect 1.35(H) 0.00 - 1.10 mg/dL 10/29/2024 5:49 AM EDT [facility] Plasma 10/29/2024 5:07 AM EDT 10/29/2024 5:13 AM EDT Beata Horner [facility] BLOOD ORDERABLES Denisse valle Result [facility] [address] [place] [address], [facility] * (ABNORMAL) CBC (10/29/2024 5:07 AM EDT) WBC 7.8 3.8 - 10.8 10E3/uL 10/29/2024 5:38 AM EDT [facility] RBC 3.05(L) 4.20 - 5.80 10E6/uL 10/29/2024 5:38 AM EDT [facility] Hemoglobin 9.0(L) 13.2 - 17.1 g/dL 10/29/2024 5:38 AM EDT [facility] Hematocrit 26.7(L) 38.5 - 50.0 % 10/29/2024 5:38 AM EDT [facility] MCV 87.4 80.0 - 100.0 fL 10/29/2024 5:38 AM EDT [facility] MCH 29.7 27.0 - 33.0 pg 10/29/2024 5:38 AM EDT [facility] MCHC 33.9 32.0 - 36.0 g/dL 10/29/2024 5:38 AM EDT [facility] RDW 18.3(H) 11.0 - 15.0 % 10/29/2024 5:38 AM EDT [facility] Platelets 41(L) 140 - 400 10E3/uL 10/29/2024 5:38 AM EDT [facility] Comment: CNV Specimen checked for clots. None detected. MPV 7.5 7.5 - 11.5 fL 10/29/2024 5:38 AM EDT [facility] Whole Blood 10/29/2024 5:07 AM EDT 10/29/2024 5:13 AM EDT Beata Horner [facility] BLOOD ORDERABLES Denisse valle Result [facility] [address] [address], [facility] * (ABNORMAL) TEG-Bypass/ECMO/Liver HN (Factor function, Platelet/Fibrin Clot Strength w/Clot Breakdown, Heparinase In All Channels) (10/29/2024 5:07 AM EDT) Citrated Kaolin Reaction Time (TEGECMOLIVER) 8.9 4.6 - 9.1 minutes 10/29/2024 7:04 AM EDT [facility] Citrated Kaolin W/Heparinase Reaction Time (TEGECMOLIVER) 7.4 4.3 - 8.3 minutes 10/29/2024 7:04 AM EDT [facility] Citrated Kaolin Maximum Amplitude (TEGECMOLIVER) 52.9 52.0 - 69.0 mm 10/29/2024 7:04 AM EDT [facility] Citrated Functional Fibrinogen W/Heparinase Maximum Amplitude(TEGEC MOLIVER) 20.7 15.0 - 34.0 mm 10/29/2024 7:04 AM EDT [facility] Citrated Rapid Teg W/Heparinase Maximum Amplitude (TEGECMOLIVER) 49.7(L) 53.0 - 69.0 mm 10/29/2024 7:04 AM EDT [facility] Citrated Kaolin w/Heparinase Percent Lysis (TEGECMOLIVER) 0.0 0.0 - 3.2 % 10/29/2024 7:04 AM EDT [facility] Whole Blood (Citrate) 10/29/2024 5:07 AM EDT 10/29/2024 5:10 AM EDT Kemar Sahni MD LAB BLOOD ORDERABLES Final Result [facility] [address] * (ABNORMAL) TEG-Bypass/ECMO/Liver HN (Factor function, Platelet/Fibrin Clot Strength w/Clot Breakdown, Heparinase In All Channels) (10/28/2024 11:55 PM EDT) [facility] Citrated Kaolin Reaction Time (TEGECMOLIVER) 8.6 4.6 - 9.1 minutes 10/29/2024 2:01 AM EDT [facility] Citrated Kaolin W/Heparinase Reaction Time (TEGECMOLIVER) 8.7(H) 4.3 - 8.3 minutes 10/29/2024 2:01 AM EDT [facility] Citrated Kaolin Maximum Amplitude (TEGECMOLIVER) 47.9(L) 52.0 - 69.0 mm 10/29/2024 2:01 AM EDT [facility] Citrated Functional Fibrinogen W/Heparinase Maximum Amplitude(TEGEC MOLIVER) 22.0 15.0 - 34.0 mm 10/29/2024 2:01 AM EDT [facility] Citrated Rapid Teg W/Heparinase Maximum Amplitude (TEGECMOLIVER) 45.9(L) 53.0 - 69.0 mm 10/29/2024 2:01 AM EDT [facility] Citrated Kaolin w/Heparinase Percent Lysis (TEGECMOLIVER) 0.0 0.0 - 3.2 % 10/29/2024 2:01 AM EDT [facility] Whole Blood (Citrate) 10/28/2024 11:55 PM EDT 10/28/2024 11:58 PM EDT Kemar Sahni MD LAB BLOOD ORDERABLES Final Result [facility] [address] * (ABNORMAL) CBC, STAT (10/28/2024 8:04 PM EDT) WBC 3.9 3.8 - 10.8 10E3/uL 10/28/2024 8:36 PM EDT [facility] RBC 2.66(L) 4.20 - 5.80 10E6/uL 10/28/2024 8:36 PM EDT [facility] Hemoglobin 8.0(L) 13.2 - 17.1 g/dL 10/28/2024 8:36 PM EDT [facility] Hematocrit 23.0(L) 38.5 - 50.0 % 10/28/2024 8:36 PM EDT [facility] MCV 86.4 80.0 - 100.0 fL 10/28/2024 8:36 PM EDT [facility] MCH 29.9 27.0 - 33.0 pg 10/28/2024 8:36 PM EDT [facility] MCHC 34.6 32.0 - 36.0 g/dL 10/28/2024 8:36 PM EDT [facility] RDW 18.6(H) 11.0 - 15.0 % 10/28/2024 8:36 PM EDT [facility] Platelets 29(L) 140 - 400 10E3/uL 10/28/2024 8:36 PM EDT [facility] Comment: CNV Specimen checked for clots. None detected. MPV 7.8 7.5 - 11.5 fL 10/28/2024 8:36 PM EDT [facility] Whole Blood 10/28/2024 8:04 PM EDT 10/28/2024 8:14 PM EDT us Carlos Marks MD LAB BLOOD ORDERABLES Final Result [facility] [address] [place] [address], [facility] * (ABNORMAL) POC Glucose Monitoring Device (10/28/2024 8:03 PM EDT) Pathologist [facility] POC Glucose Monitoring Device 122(H) 70 - 100 mg/dL 10/28/2024 8:04 PM EDT [facility] Blood 10/28/2024 8:03 PM EDT 10/28/2024 8:04 PM EDT Semaj Mcnair III, MD POINT OF CARE TEST ORDERABLES Final Result [facility] [address] * (ABNORMAL) TEG-Bypass/ECMO/Liver HN (Factor function, Platelet/Fibrin Clot Strength w/Clot Breakdown, Heparinase In All Channels) (10/28/2024 6:39 PM EDT) [facility] Citrated Kaolin Reaction Time (TEGECMOLIVER) 9.0 4.6 - 9.1 minutes 10/28/2024 7:50 PM EDT [facility] Citrated Kaolin W/Heparinase Reaction Time (TEGECMOLIVER) 8.3 4.3 - 8.3 minutes 10/28/2024 7:50 PM EDT [facility] Citrated Kaolin Maximum Amplitude (TEGECMOLIVER) 47.6(L) 52.0 - 69.0 mm 10/28/2024 7:50 PM EDT [facility] Citrated Functional Fibrinogen W/Heparinase Maximum Amplitude(TEGEC MOLIVER) 20.4 15.0 - 34.0 mm 10/28/2024 7:50 PM EDT [facility] Citrated Rapid Teg W/Heparinase Maximum Amplitude (TEGECMOLIVER) 44.0(L) 53.0 - 69.0 mm 10/28/2024 7:50 PM EDT [facility] Citrated Kaolin w/Heparinase Percent Lysis (TEGECMOLIVER) 0.0 0.0 - 3.2 % 10/28/2024 7:50 PM EDT [facility] Whole Blood (Citrate) 10/28/2024 6:39 PM EDT 10/28/2024 6:42 PM EDT Kemar Sahni MD LAB BLOOD ORDERABLES Final Result [facility] [address] * (ABNORMAL) POC Glucose Monitoring Device (10/28/2024 5:31 PM EDT) POC Glucose Monitoring Device 130(H) 70 - 100 mg/dL 10/28/2024 5:31 PM EDT [facility] Blood 10/28/2024 5:31 PM EDT 10/28/2024 5:31 PM EDT us Semaj Mcnair III, MD POINT OF CARE TEST ORDERABLES Final Result Performing Organization Address City/[facility] Co de Phone Number [facility] [address] * Transfuse RBC Transfusion Rate: Per dept routine (10/28/2024 5:23 PM EDT) us Shay Plata MD NURSING TREATMENT OR DERABLES - BLOOD ADMIN Final Result Performing Organization Address [facility] Co de Phone Number EXTERNAL * Transfuse RBC Transfusion Rate: Per dept routine, 1 Units (10/28/2024 5:23 PM EDT) us Shay Plata MD NURSING TREATMENT OR DERABLES - BLOOD ADMIN Final Result Performing Organization Address [facility] de Phone Number EXTERNAL * US [...] EXAM: US ABDOMEN LIMITED EXAM: US DUPLEX [id number] COMPLETE INDICATION: Post-op liver transplant DATE: 10/28/2024 [...] retrohepatic inferior vena cava is patent. The grindstone right kidney is partially visualized. A prominent [...] EXAM: US ABDOMEN LIMITED EXAM: US DUPLEX [id number] COMPLETE INDICATION: Post-op liver transplant DATE: 10/28/2024 [...] retrohepatic inferior vena cava is patent. The grindstone right kidney is partially visualized. A prominent [...] 4:42 PM EDT us Shay Plata MD [facility] US ORDERABLES Fi nal Result * US Duplex [id number] Comp (10/28/2024 4:23 PM EDT) Anatomical Region [...] EXAM: US ABDOMEN LIMITED EXAM: US DUPLEX [id number] COMPLETE INDICATION: Post-op liver transplant DATE: 10/28/2024 [...] retrohepatic inferior vena cava is patent. The grindstone right kidney is partially visualized. A prominent [...] EXAM: US ABDOMEN LIMITED EXAM: US DUPLEX [id number] COMPLETE INDICATION: Post-op liver transplant DATE: 10/28/2024 [...] retrohepatic inferior vena cava is patent. The grindstone right kidney is partially visualized. A prominent [...] 4:42 PM EDT us Shay Plata MD [facility] US ORDERABLES Fi nal Result * (ABNORMAL) CBC, STAT (10/28/2024 2:49 PM EDT) [facility] Signature WBC 4.0 3.8 - 10.8 10E3/uL 10/28/2024 3:07 PM EDT [facility] RBC 2.44(L) 4.20 - 5.80 10E6/uL 10/28/2024 3:07 PM EDT [facility] Hemoglobin 7.5(L) 13.2 - 17.1 g/dL 10/28/2024 3:07 PM EDT [facility] Hematocrit 21.4(L) 38.5 - 50.0 % 10/28/2024 3:07 PM EDT [facility] MCV 87.6 80.0 - 100.0 fL 10/28/2024 3:07 PM EDT [facility] MCH 30.6 27.0 - 33.0 pg 10/28/2024 3:07 PM EDT [facility] MCHC 34.9 32.0 - 36.0 g/dL 10/28/2024 3:07 PM EDT [facility] RDW 18.4(H) 11.0 - 15.0 % 10/28/2024 3:07 PM EDT [facility] Platelets 30(L) 140 - 400 10E3/uL 10/28/2024 3:07 PM EDT [facility] Comment: CNV Specimen checked for clots. None detected. MPV 7.7 7.5 - 11.5 fL 10/28/2024 3:07 PM EDT [facility] Whole Blood 10/28/2024 2:49 PM EDT 10/28/2024 2:53 PM EDT us Carlos Marks MD LAB BLOOD ORDERABLES Final Result Performing Organization Address City/State/[facility] Co de Phone Number [facility] [address] * ECG 12 lead (MUSE) (10/28/2024 1:22 PM EDT) 10/28/2024 1:22 PM EDT Narrative MUSE - 10/29/2024 10:34 PM EDT Ventricular Rate: 104 BPM Atrial Rate: 104 BPM P-R Interval: 172 ms QRS Duration: 90 ms QT: 354 ms QTc: 465 ms P Palco: 58 degrees R Palco: -19 degrees T [place]co: 38 degrees Diagnosis Line: SINUS TACHYCARDIA ^ OTHERWISE NORMAL ECG ^ ^ Confirmed by JORGE MACIAS ([id number]) on 10/29/2024 10:34:22 PM us Hillary Fernandes PharmD ECG ORDERABLES Final Res ult Performing Organization Address City/[facility]/ZIP Co de Phone Number MUSE * (ABNORMAL) POC Glucose Monitoring Device (10/28/2024 12:54 PM EDT) POC Glucose Monitoring Device 119(H) 70 - 100 mg/dL 10/28/2024 12:55 PM EDT [facility] Blood 10/28/2024 12:5 4 PM EDT 10/28/2024 12:55 PM EDT us Semaj Mcnair III, MD POINT OF CARE TEST ORDERABLES Final Result Performing Organization Address [facility] Co de Phone Number [facility] [address] * Transfuse RBC Transfusion Rate: Per dept routine (10/28/2024 12:31 PM EDT) us Carlos Marks MD NURSING TREATMENT ORDERABLE S - BLOOD ADMIN Final Result Performing Organization Address City/[facility] Co de Phone Number EXTERNAL * Transfuse RBC Transfusion Rate: Per dept routine, 1 Units (10/28/2024 12:31 PM EDT) Carlos Marks MD NURSING TREATMENT ORDERABLE S - BLOOD ADMIN Final Result Performing Organization Address City/[facility] Co de Phone Number EXTERNAL * Protime-INR, STAT (10/28/2024 11:09 AM EDT) Protime 14.3 12.1 - 15.1 seconds 10/28/2024 11:29 AM EDT [facility] INR 1.1 0.9 - 1.1 10/28/2024 11:29 AM EDT [facility] Comment: RECOMMENDED THERAPEUTIC RANGES USING INR : Stable oral anticoagulant therapy: 2.0 - 3.0 Mechanical prosthetic heart valve: 2.5 - 3.5 Recurrent acute myocardial infarction: 2.5 - 3.5 Plasma 10/28/2024 11:0 9 AM EDT 10/28/2024 11:16 AM EDT us Carlos Marks MD LAB BLOOD ORDERABLES Final Result Performing Organization Address [facility] Co de Phone Number [facility] [address] [facility] * (ABNORMAL) Lactic Acid, STAT (10/28/2024 11:09 AM EDT) Lactate 0.3(L) 0.5 - 2.2 mmol/L 10/28/2024 11:37 AM EDT [facility] Plasma 10/28/2024 11:0 9 AM EDT 10/28/2024 11:15 AM EDT us Carlos Marks MD LAB BLOOD ORDERABLES Final Result Performing Organization Address [facility] Co de Phone Number [facility] [address] [facility]. [address] * Magnesium, STAT (10/28/2024 11:09 AM EDT) Magnesium 2.1 1.5 - 2.5 mg/dL 10/28/2024 11:47 AM EDT [facility] Plasma 10/28/2024 11:0 9 AM EDT 10/28/2024 11:16 AM EDT us Carlos Marks MD LAB BLOOD ORDERABLES Final Result Performing Organization Address [facility] Co de Phone Number [facility] [address] [place] [address]. [address] * (ABNORMAL) Renal Function Panel w/EGFR, STAT (10/28/2024 11:09 AM EDT) Sodium 144 133 - 146 mmol/L 10/28/2024 11:47 AM EDT [facility] Potassium 3.4(L) 3.5 - 5.3 mmol/L 10/28/2024 11:47 AM EDT [facility] Chloride 112(H) 98 - 110 mmol/L 10/28/2024 11:47 AM EDT [facility] CO2 22 21 - 33 mmol/L 10/28/2024 11:47 AM EDT [facility] Anion Gap 10 3 - 16 mmol/L 10/28/2024 11:47 AM EDT [facility] BUN 57(H) 7 - 25 mg/dL 10/28/2024 11:47 AM EDT [facility] Creatinine 2.01(H) 0.60 - 1.30 mg/dL 10/28/2024 11:47 AM EDT [facility] Glucose 108(H) 70 - 100 mg/dL 10/28/2024 11:47 AM EDT [facility] Calcium 8.8 8.6 - 10.3 mg/dL 10/28/2024 11:47 AM EDT [facility] Phosphorus 4.0 2.1 - 4.7 mg/dL 10/28/2024 11:47 AM EDT [facility] Albumin 3.3(L) 3.5 - 5.7 g/dL 10/28/2024 11:47 AM EDT [facility] Osmolality, Calculated 314(H) 278 - 305 mOsm/kg 10/28/2024 11:47 AM EDT [facility] EGFR 42 10/28/2024 11:47 AM EDT [facility] Comment:As of 2021, the estimated GFR [...] Talia M, Olivai DC, Emerita ND, Madelyn CRUZ, Felicia LA, et al. A Unifying Approach for GFR Estimation: Recommendations of the [employer]F-ASN Task Force on Reassessing the inclusion of Race in Diagnosing Kidney Disease. Am J Kidney Dis. 2020. Plasma 10/28/2024 11:0 9 AM EDT 10/28/2024 11:16 AM EDT Carlos Marks MD LAB BLOOD ORDERABLES Final Result [facility] [address] * (ABNORMAL) TEG-Bypass/ECMO/Liver HN (Factor function, Platelet/Fibrin Clot Strength w/Clot Breakdown, Heparinase In All Channels) (10/28/2024 11:09 AM EDT) [facility] Citrated Kaolin Reaction Time (TEGECMOLIVER) 9.2(H) 4.6 - 9.1 minutes 10/28/2024 12:30 PM EDT [facility] Citrated Kaolin W/Heparinase Reaction Time (TEGECMOLIVER) 9.6(H) 4.3 - 8.3 minutes 10/28/2024 12:30 PM EDT [facility] Citrated Kaolin Maximum Amplitude (TEGECMOLIVER) 51.2(L) 52.0 - 69.0 mm 10/28/2024 12:30 PM EDT [facility] Citrated Functional Fibrinogen W/Heparinase Maximum Amplitude(TEGEC MOLIVER) 21.6 15.0 - 34.0 mm 10/28/2024 12:30 PM EDT [facility] Citrated Rapid Teg W/Heparinase Maximum Amplitude (TEGECMOLIVER) 49.3(L) 53.0 - 69.0 mm 10/28/2024 12:30 PM EDT [facility] Citrated Kaolin w/Heparinase Percent Lysis (TEGECMOLIVER) 0.0 0.0 - 3.2 % 10/28/2024 12:30 PM EDT [facility] Whole Blood (Citrate) 10/28/2024 11:09 AM EDT 10/28/2024 11:14 AM EDT Kemar Sahni MD LAB BLOOD ORDERABLES Final Result [facility] [address] * (ABNORMAL) CBC (10/28/2024 10:21 AM EDT) WBC 4.1 3.8 - 10.8 10E3/uL 10/28/2024 10:41 AM EDT [facility] RBC 2.30(L) 4.20 - 5.80 10E6/uL 10/28/2024 10:41 AM EDT [facility] Hemoglobin 7.1(L) 13.2 - 17.1 g/dL 10/28/2024 10:41 AM EDT [facility] [facility] Hematocrit 20.4(L) 38.5 - 50.0 % 10/28/2024 10:41 AM EDT [facility] MCV 88.5 80.0 - 100.0 fL 10/28/2024 10:41 AM EDT [facility] MCH 30.7 27.0 - 33.0 pg 10/28/2024 10:41 AM EDT [facility] MCHC 34.7 32.0 - 36.0 g/dL 10/28/2024 10:41 AM EDT [facility] RDW 18.7(H) 11.0 - 15.0 % 10/28/2024 10:41 AM EDT [facility] Platelets 37(L) 140 - 400 10E3/uL 10/28/2024 10:41 AM EDT [facility] Comment: CNV Specimen checked for clots. None detected. MPV 7.6 7.5 - 11.5 fL 10/28/2024 10:41 AM EDT [facility] Whole Blood 10/28/2024 10:2 1 AM EDT 10/28/2024 10:29 AM EDT us Carlos Marks MD LAB BLOOD ORDERABLES Final Result [facility] [address] [place] [address], [facility] * POC Glucose Monitoring Device (10/28/2024 9:07 AM EDT) POC Glucose Monitoring Device 97 70 - 100 mg/dL 10/28/2024 9:08 AM EDT [facility] Blood 10/28/2024 9:07 AM EDT 10/28/2024 9:08 AM EDT Semaj Mcnair III, MD POINT OF CARE TEST ORDERABLES Final Result Performing Organization Address [facility] Co de Phone Number [facility] [address] * (ABNORMAL) Tacrolimus level (10/28/2024 8:20 AM EDT) Tacrolimus (LC-MS) <1.0(L) 3.0 - 15.0 ng/mL 10/28/2024 2:02 PM EDT [facility] Comment:Performed via liquid chromatography tandem mass spectrometry. Detection limit: 1 ng/mL. Individual target concentrations may vary due to target organ and time after transplant. This test has been developed and its performance characteristics determined by [facility] which is certified under the [...] EDT 10/28/2024 8:29 AM EDT Priti Geiger [facility] BLOOD ORDERABLES Final Re sult Performing Organization Address City/[facility] Co de Phone Number [facility] [address] * (ABNORMAL) POC Glucose Monitoring Device (10/28/2024 8:10 AM EDT) POC Glucose Monitoring Device 102(H) 70 - 100 mg/dL 10/28/2024 8:11 AM EDT [facility] Blood 10/28/2024 8:10 AM EDT 10/28/2024 8:11 AM EDT Semaj Mcnair III, MD POINT OF CARE TEST ORDERABLES Final Result Performing Organization Address [facility] Co de Phone Number [facility] [address] [facility]. [address] * POC Glucose Monitoring Device (10/28/2024 6:17 AM EDT) POC Glucose Monitoring Device 100 70 - 100 mg/dL 10/28/2024 6:18 AM EDT [facility] Blood 10/28/2024 6:17 AM EDT 10/28/2024 6:18 AM EDT Semaj Mcnair III, MD POINT OF CARE TEST ORDERABLES Final Result Performing Organization Address [facility] de Phone Number [facility] [address] [facility]. [address] * Prepare Platelets, leukoreduced (10/28/2024 6:15 AM EDT) Product Code R8202A71 HCLL Unit Number [id number] HCLL Dispense Status Presumed Transfused_PT HCLL Blood Expiration Date HCLL Coding System [id number] HCLL Product Code N0722H67 HCLL Unit Number [id number] HCLL Dispense Status Presumed Transfused_PT HCLL Blood Expiration Date HCLL Coding System [id number] HCLL us Attending Provider Unknown BLOOD BANK PRODUCT OR DERABLES Final Result Performing Organization Address [facility] Co de Phone Number HCLL * Prepare Fresh Frozen Plasma (10/28/2024 6:15 AM EDT) Product Code L0650V32 HCLL Unit Number [id number] HCLL Dispense Status Released from Crossmatch_RE HCLL Blood Expiration Date HCLL Coding System [id number] HCLL Product Code H1100S12 HCLL Unit Number [id number] HCLL Dispense Status Presumed Transfused_PT HCLL Blood Expiration Date HCLL Coding System BTNN315 HCLL Product Code Y6525H46 HCLL Unit Number [id number] HCLL Dispense Status Released from Crossmatch_RE HCLL Blood Expiration Date HCLL Coding System YMYQ761 HCLL Product Code R1342K40 HCLL Unit Number [id number] HCLL Dispense Status Presumed Transfused_PT HCLL Blood Expiration Date HCLL Coding System GSDX285 HCLL Product Code W2166P88 HCLL Unit Number [id number] HCLL Dispense Status Released from Crossmatch_RE HCLL Blood Expiration Date [id number] HCLL Coding System [id number] HCLL Attending Provider Unknown BLOOD BANK PRODUCT OR DERABLES Final Result HCLL * Prepare RBC, leukoreduced (10/28/2024 6:15 AM EDT) Product Code E5716R39 HCLL Unit Number [id number] HCLL Dispense Status Released from Crossmatch_RE HCLL Blood Expiration Date HCLL Coding System GKLM218 HCLL Product Code G5089X61 HCLL Unit Number [id number] HCLL Dispense Status Presumed Transfused_PT HCLL Blood Expiration Date [id number] HCLL Coding System [id number] HCLL Product Code I1055I33 HCLL Unit Number [id number] HCLL Dispense Status Released from Crossmatch_RE HCLL Blood Expiration Date [id number] HCLL Coding System EFNW634 HCLL Product Code E2497H96 HCLL Unit Number [id number] HCLL Dispense Status Presumed Transfused_PT HCLL Blood Expiration Date HCLL Coding System QLVT652 HCLL Product Code P8098M54 HCLL Unit Number [id number] HCLL Dispense Status Released from Crossmatch_RE HCLL Blood Expiration Date HCLL Coding System XQWW230 HCLL Attending Provider Unknown BLOOD BANK PRODUCT OR DERABLES Final Result Performing Organization Address [facility] Co de Phone Number HCLL * Prepare Platelets, leukoreduced, 1 Units (10/28/2024 6:15 AM EDT) Product Code J6170J49 HCLL Unit Number [id number] HCLL Dispense Status Presumed Transfused_PT HCLL Blood Expiration Date [id number] HCLL Coding System FRBK923 HCLL Blood Bank Product John Pina MD BLOOD BANK PRODUCT ORDERABLES F inal Result Performing Organization Address [facility] de Phone Number HCLL * Prepare Cryoprecipitate, 1 Units (10/28/2024 6:15 AM EDT) Product Code E5632H38 HCLL Unit Number [id number] HCLL Dispense Status Presumed Transfused_PT HCLL Blood Expiration Date HCLL Coding System MAZX550 HCLL Product Code X7633N14 HCLL Unit Number [id number] HCLL Dispense Status Presumed Transfused_PT HCLL Blood Expiration Date HCLL Coding System VUEV163 HCLL Blood Bank Product John Pina MD BLOOD BANK PRODUCT ORDERABLES F inal Result Performing Organization Address [facility] Co de Phone Number HCLL * Prepare Fresh Frozen Plasma, 1 Units (10/28/2024 6:15 AM EDT) Product Code R0996Y68 HCLL Unit Number [id number] HCLL Dispense Status Presumed Transfused_PT HCLL Blood Expiration Date [id number] HCLL Coding System AVEW147 HCLL Blood Bank Product John Pina MD BLOOD BANK PRODUCT ORDERABLES F inal Result HCLL * Prepare Cryoprecipitate, 1 Units (10/28/2024 6:15 AM EDT) Product Code P9127Y83 HCLL Unit Number [id number] HCLL Dispense Status Presumed Transfused_PT HCLL Blood Expiration Date HCLL Coding System HAYQ129 HCLL Product Code D7001H70 HCLL Unit Number [id number] HCLL Dispense Status Presumed Transfused_PT HCLL Blood Expiration Date HCLL Coding System QPUG561 HCLL Product Code Q8151L40 HCLL Unit Number [id number] HCLL Dispense Status Presumed Transfused_PT HCLL Blood Expiration Date HCLL Coding System LJYV554 HCLL Product Code Q6889O47 HCLL Unit Number [id number] HCLL Dispense Status Presumed Transfused_PT HCLL Blood Expiration Date HCLL Coding System WKID326 HCLL Blood Bank Product John Pina MD BLOOD BANK PRODUCT ORDERABLES F inal Result Performing Organization Address [facility] Co de Phone Number HCLL * (ABNORMAL) POC Glucose Monitoring Device (10/28/2024 4:55 AM EDT) POC Glucose Monitoring Device 104(H) 70 - 100 mg/dL 10/28/2024 4:57 AM EDT [facility] Blood 10/28/2024 4:55 AM EDT 10/28/2024 4:57 AM EDT Semaj Mcnair III, MD POINT OF CARE TEST ORDERABLES Final Result Performing Organization Address City/[facility]/ZIP Co de Phone Number [facility] [address] [place] [address], [facility] * TEG-Bypass/ECMO/Liver HN (Factor function, Platelet/Fibrin Clot Strength w/Clot Breakdown, Heparinase In All Channels) (10/28/2024 4:13 AM EDT) Citrated Kaolin Reaction Time (TEGECMOLIVER) 7.2 4.6 - 9.1 minutes 10/28/2024 5:38 AM EDT [facility] Citrated Kaolin W/Heparinase Reaction Time (TEGECMOLIVER) 7.8 4.3 - 8.3 minutes 10/28/2024 5:38 AM EDT [facility] Citrated Kaolin Maximum Amplitude (TEGECMOLIVER) 53.0 52.0 - 69.0 mm 10/28/2024 5:38 AM EDT [facility] Citrated Functional Fibrinogen W/Heparinase Maximum Amplitude(TEGEC MOLIVER) 21.4 15.0 - 34.0 mm 10/28/2024 5:38 AM EDT [facility] Citrated Rapid Teg W/Heparinase Maximum Amplitude (TEGECMOLIVER) 54.7 53.0 - 69.0 mm 10/28/2024 5:38 AM EDT [facility] Citrated Kaolin w/Heparinase Percent Lysis (TEGECMOLIVER) 0.0 0.0 - 3.2 % 10/28/2024 5:38 AM EDT [facility] Whole Blood (Citrate) 10/28/2024 4:13 AM EDT 10/28/2024 4:28 AM EDT Kemar Sahni MD LAB BLOOD ORDERABLES Final Result Performing Organization Address City/State/[facility] Co de Phone Number [facility] [address] * Protime-INR (10/28/2024 4:13 AM EDT) Protime 14.6 12.1 - 15.1 seconds 10/28/2024 4:53 AM EDT [facility] INR 1.1 0.9 - 1.1 10/28/2024 4:53 AM EDT [facility] Comment: RECOMMENDED THERAPEUTIC RANGES USING INR : Stable oral anticoagulant therapy: 2.0 - 3.0 Mechanical prosthetic heart valve: 2.5 - 3.5 Recurrent acute myocardial infarction: 2.5 - 3.5 Plasma 10/28/2024 4:13 AM EDT 10/28/2024 4:41 AM EDT Kemar Sahni MD LAB BLOOD ORDERABLES Final Result Performing Organization Address City/[facility]/ZIP Co de Phone Number [facility] [address] * Magnesium (10/28/2024 4:13 AM EDT) Magnesium 2.2 1.5 - 2.5 mg/dL 10/28/2024 5:15 AM EDT [facility] Plasma 10/28/2024 4:13 AM EDT 10/28/2024 4:41 AM EDT Kemar Sahni MD LAB BLOOD ORDERABLES Final Result Performing Organization Address [facility] de Phone Number [facility] [address] * (ABNORMAL) Hepatic Function Panel (10/28/2024 4:13 AM EDT) Total Bilirubin 2.3(H) 0.0 - 1.5 mg/dL 10/28/2024 5:15 AM EDT [facility] Bilirubin, Direct 1.67(H) 0.00 - 0.40 mg/dL 10/28/2024 5:15 AM EDT [facility] AST 44(H) 13 - 39 U/L 10/28/2024 5:15 AM EDT [facility] ALT 101(H) 7 - 52 U/L 10/28/2024 5:15 AM EDT [facility] Alkaline Phosphatase 26(L) 36 - 125 U/L 10/28/2024 5:15 AM EDT [facility] Total Protein 4.5(L) 6.4 - 8.9 g/dL 10/28/2024 5:15 AM EDT [facility] Albumin 3.1(L) 3.5 - 5.7 g/dL 10/28/2024 5:15 AM EDT [facility] Bilirubin, Indirect 0.63 0.00 - 1.10 mg/dL 10/28/2024 5:15 AM EDT [facility] Plasma 10/28/2024 4:13 AM EDT 10/28/2024 4:41 AM EDT Kemar Sahni MD LAB BLOOD ORDERABLES Final Result [facility] [address] [place], [place] [address] * (ABNORMAL) Renal Function Panel w/EGFR (10/28/2024 4:13 AM EDT) Sodium 142 133 - 146 mmol/L 10/28/2024 5:15 AM EDT [facility] Potassium 3.5 3.5 - 5.3 mmol/L 10/28/2024 5:15 AM EDT [facility] Chloride 111(H) 98 - 110 mmol/L 10/28/2024 5:15 AM EDT [facility] CO2 22 21 - 33 mmol/L 10/28/2024 5:15 AM EDT [facility] Anion Gap 9 3 - 16 mmol/L 10/28/2024 5:15 AM EDT [facility] BUN 58(H) 7 - 25 mg/dL 10/28/2024 5:15 AM EDT [facility] Creatinine 2.24(H) 0.60 - 1.30 mg/dL 10/28/2024 5:15 AM EDT [facility] Glucose 103(H) 70 - 100 mg/dL 10/28/2024 5:15 AM EDT [facility] Calcium 9.1 8.6 - 10.3 mg/dL 10/28/2024 5:15 AM EDT [facility] Phosphorus 4.8(H) 2.1 - 4.7 mg/dL 10/28/2024 5:15 AM EDT [facility] Albumin 3.1(L) 3.5 - 5.7 g/dL 10/28/2024 5:15 AM EDT [facility] Osmolality, Calculated 310(H) 278 - 305 mOsm/kg 10/28/2024 5:15 AM EDT [facility] EGFR 37 10/28/2024 5:15 AM EDT [facility] Comment:As of 2021, the estimated GFR [...] LAB BLOOD ORDERABLES Final Result [facility] [address] * (ABNORMAL) CBC (10/28/2024 4:13 AM EDT) WBC 4.5 3.8 - 10.8 10E3/uL 10/28/2024 5:09 AM EDT [facility] RBC 2.39(L) 4.20 - 5.80 10E6/uL 10/28/2024 5:09 AM EDT [facility] Hemoglobin 7.3(L) 13.2 - 17.1 g/dL 10/28/2024 5:09 AM EDT [facility] Hematocrit 21.0(L) 38.5 - 50.0 % 10/28/2024 5:09 AM EDT [facility] MCV 87.8 80.0 - 100.0 fL 10/28/2024 5:09 AM EDT [facility] MCH 30.5 27.0 - 33.0 pg 10/28/2024 5:09 AM EDT [facility] MCHC 34.7 32.0 - 36.0 g/dL 10/28/2024 5:09 AM EDT [facility] RDW 18.7(H) 11.0 - 15.0 % 10/28/2024 5:09 AM EDT [facility] Platelets 38(L) 140 - 400 10E3/uL 10/28/2024 5:09 AM EDT [facility] Comment: CNV Specimen checked for clots. None detected. MPV 7.6 7.5 - 11.5 fL 10/28/2024 5:09 AM EDT [facility] Whole Blood 10/28/2024 4:13 AM EDT 10/28/2024 4:41 AM EDT Kemar Sahni MD LAB BLOOD ORDERABLES Final Result Performing Organization Address [facility] de Phone Number [facility] [address] * (ABNORMAL) POC Glucose Monitoring Device (10/28/2024 4:04 AM EDT) POC Glucose Monitoring Device 103(H) 70 - 100 mg/dL 10/28/2024 4:05 AM EDT [facility] Blood 10/28/2024 4:04 AM EDT 10/28/2024 4:05 AM EDT Semaj Mcnair III, MD POINT OF CARE TEST ORDERABLES Final Result Performing Organization Address City/State/[facility] Co de Phone Number [facility] [address] * (ABNORMAL) POC Glucose Monitoring Device (10/28/2024 3:00 AM EDT) POC Glucose Monitoring Device 106(H) 70 - 100 mg/dL 10/28/2024 3:01 AM EDT [facility] Blood 10/28/2024 3:00 AM EDT 10/28/2024 3:01 AM EDT Semaj Mcnair III, MD POINT OF CARE TEST ORDERABLES Final Result [facility] [address] [facility]. [address] * (ABNORMAL) POC Glucose Monitoring Device (10/28/2024 2:32 AM EDT) POC Glucose Monitoring Device 109(H) 70 - 100 mg/dL 10/28/2024 2:33 AM EDT [facility] Blood 10/28/2024 2:32 AM EDT 10/28/2024 2:33 AM EDT Semaj Mcnair III, MD POINT OF CARE TEST ORDERABLES Final Result Performing Organization Address City/State/[facility] Co de Phone Number [facility] [address] [facility]. [address] * (ABNORMAL) POC Glucose Monitoring Device (10/28/2024 2:14 AM EDT) POC Glucose Monitoring Device 115(H) 70 - 100 mg/dL 10/28/2024 2:15 AM EDT [facility] Blood 10/28/2024 2:14 AM EDT 10/28/2024 2:15 AM EDT us Semaj Mcnair III, MD POINT OF CARE TEST ORDERABLES Final Result [facility] [address] [facility]. [address] * (ABNORMAL) POC Glucose Monitoring Device (10/28/2024 2:03 AM EDT) POC Glucose Monitoring Device 101(H) 70 - 100 mg/dL 10/28/2024 2:04 AM EDT [facility] Blood 10/28/2024 2:03 AM EDT 10/28/2024 2:04 AM EDT us Semaj Mcnair III, MD POINT OF CARE TEST ORDERABLES Final Result [facility] [address] [place] [address], [facility] * Transfuse RBC Transfusion Rate: Per dept routine (10/28/2024 1:51 AM EDT) John Moreno MD NURSING TREATMENT ORDERABLES - BLOOD ADMIN Final Result EXTERNAL * Transfuse RBC Transfusion Rate: Per dept routine, 1 Units (10/28/2024 1:51 AM EDT) John Moreno MD NURSING TREATMENT ORDERABLES - BLOOD ADMIN Final Result Performing Organization Address City/[facility] Co de Phone Number EXTERNAL * (ABNORMAL) TEG-Bypass/ECMO/Liver HN (Factor function, Platelet/Fibrin Clot Strength w/Clot Breakdown, Heparinase In All Channels) (10/28/2024 12:05 AM EDT) [facility] Citrated Kaolin Reaction Time (TEGECMOLIVER) 7.5 4.6 - 9.1 minutes 10/28/2024 1:22 AM EDT [facility] Citrated Kaolin W/Heparinase Reaction Time (TEGECMOLIVER) 7.7 4.3 - 8.3 minutes 10/28/2024 1:22 AM EDT [facility] Citrated Kaolin Maximum Amplitude (TEGECMOLIVER) 54.4 52.0 - 69.0 mm 10/28/2024 1:22 AM EDT [facility] Citrated Functional Fibrinogen W/Heparinase Maximum Amplitude(TEGEC MOLIVER) 20.4 15.0 - 34.0 mm 10/28/2024 1:22 AM EDT [facility] Citrated Rapid Teg W/Heparinase Maximum Amplitude (TEGECMOLIVER) 51.0(L) 53.0 - 69.0 mm 10/28/2024 1:22 AM EDT [facility] Citrated Kaolin w/Heparinase Percent Lysis (TEGECMOLIVER) 0.0 0.0 - 3.2 % 10/28/2024 1:22 AM EDT [facility] Whole Blood (Citrate) 10/28/2024 12:05 AM EDT 10/28/2024 12:09 AM EDT Kemar Sahni MD LAB BLOOD ORDERABLES Final Result Performing Organization Address City/[facility]/ZIP Co de Phone Number [facility] [address] * Magnesium (10/28/2024 12:05 AM EDT) Magnesium 2.2 1.5 - 2.5 mg/dL 10/28/2024 1:59 AM EDT [facility] Plasma 10/28/2024 12:0 5 AM EDT 10/28/2024 12:11 AM EDT Kemar Sahni MD LAB BLOOD ORDERABLES Final Result Performing Organization Address [facility] de Phone Number [facility] [address] * (ABNORMAL) Renal Function Panel w/EGFR (10/28/2024 12:05 AM EDT) Sodium 144 133 - 146 mmol/L 10/28/2024 1:59 AM EDT [facility] Potassium 3.4(L) 3.5 - 5.3 mmol/L 10/28/2024 1:59 AM EDT [facility] Chloride 112(H) 98 - 110 mmol/L 10/28/2024 1:59 AM EDT [facility] CO2 19(L) 21 - 33 mmol/L 10/28/2024 1:59 AM EDT [facility] Anion Gap 13 3 - 16 mmol/L 10/28/2024 1:59 AM EDT [facility] BUN 59(H) 7 - 25 mg/dL 10/28/2024 1:59 AM EDT [facility] Creatinine 2.42(H) 0.60 - 1.30 mg/dL 10/28/2024 1:59 AM EDT [facility] Glucose 118(H) 70 - 100 mg/dL 10/28/2024 1:59 AM EDT [facility] Calcium 9.0 8.6 - 10.3 mg/dL 10/28/2024 1:59 AM EDT [facility] Phosphorus 5.3(H) 2.1 - 4.7 mg/dL 10/28/2024 1:59 AM EDT [facility] Albumin 3.1(L) 3.5 - 5.7 g/dL 10/28/2024 1:59 AM EDT [facility] Osmolality, Calculated 316(H) 278 - 305 mOsm/kg 10/28/2024 1:59 AM EDT [facility] EGFR 34 10/28/2024 1:59 AM EDT [facility] Comment:As of 2021, the estimated GFR [...] LAB BLOOD ORDERABLES Final Result [facility] [id number] [id number], [facility] * (ABNORMAL) Differential (10/28/2024 12:05 AM EDT) Neutrophils Relative 88.6(H) 40.0 - 80.0 % 10/28/2024 12:41 AM EDT [facility] Lymphocytes Relative 2.5(L) 15.0 - 45.0 % 10/28/2024 12:41 AM EDT [facility] Monocytes Relative 6.1 0.0 - 12.0 % 10/28/2024 12:41 AM EDT [facility] Eosinophils Relative 2.4 0.0 - 8.0 % 10/28/2024 12:41 AM EDT [facility] Basophils Relative 0.4 0.0 - 1.0 % 10/28/2024 12:41 AM EDT [facility] nRBC 0 0 - 0 /100 WBC 10/28/2024 12:41 AM EDT [facility] Neutrophils Absolute 4,341 1,520 - 8,640 /uL 10/28/2024 12:41 AM EDT [facility] Lymphocytes Absolute 123(L) 570 - 4,860 /uL 10/28/2024 12:41 AM EDT [facility] Monocytes Absolute 299 0 - 1,296 /uL 10/28/2024 12:41 AM EDT [facility] Eosinophils Absolute 118 0 - 864 /uL 10/28/2024 12:41 AM EDT [facility] Basophils Absolute 20 0 - 108 /uL 10/28/2024 12:41 AM EDT [facility] Whole Blood 10/28/2024 12:0 5 AM EDT 10/28/2024 12:11 AM EDT Kemar Sahni MD LAB BLOOD ORDERABLES Final Result Performing Organization Address City/State/[facility] Co de Phone Number [facility] [facility] [address] [place] [address], [facility] * (ABNORMAL) CBC (10/28/2024 12:05 AM EDT) WBC 4.9 3.8 - 10.8 10E3/uL 10/28/2024 12:41 AM EDT [facility] RBC 2.18(L) 4.20 - 5.80 10E6/uL 10/28/2024 12:41 AM EDT [facility] Hemoglobin 6.7(L) 13.2 - 17.1 g/dL 10/28/2024 12:41 AM EDT [facility] Hematocrit 19.2(L) 38.5 - 50.0 % 10/28/2024 12:41 AM EDT [facility] MCV 87.8 80.0 - 100.0 fL 10/28/2024 12:41 AM EDT [facility] MCH 30.6 27.0 - 33.0 pg 10/28/2024 12:41 AM EDT [facility] MCHC 34.8 32.0 - 36.0 g/dL 10/28/2024 12:41 AM EDT [facility] RDW 19.6(H) 11.0 - 15.0 % 10/28/2024 12:41 AM EDT [facility] Platelets 45(L) 140 - 400 10E3/uL 10/28/2024 12:41 AM EDT [facility] Comment: CNV Specimen checked for clots. None detected. MPV 7.8 7.5 - 11.5 fL 10/28/2024 12:41 AM EDT [facility] Whole Blood 10/28/2024 12:0 5 AM EDT 10/28/2024 12:11 AM EDT Kemar Sahni MD LAB BLOOD ORDERABLES Final Result [facility] [address] * (ABNORMAL) POC Glucose Monitoring Device (10/28/2024 12:03 AM EDT) POC Glucose Monitoring Device 122(H) 70 - 100 mg/dL 10/28/2024 12:04 AM EDT [facility] Blood 10/28/2024 12:0 3 AM EDT 10/28/2024 12:04 AM EDT Semaj Mcnair III, MD POINT OF CARE TEST ORDERABLES Final Result [facility] [address] * (ABNORMAL) POC Glucose Monitoring Device (10/27/2024 10:03 PM EDT) POC Glucose Monitoring Device 127(H) 70 - 100 mg/dL 10/27/2024 10:03 PM EDT [facility] Blood 10/27/2024 10:0 3 PM EDT 10/27/2024 10:03 PM EDT us Semaj Mcnair III, MD POINT OF CARE TEST ORDERABLES Final Result Performing Organization Address City/[facility]/ZIP Co de Phone Number [facility] [address] [facility]. [address] * (ABNORMAL) POC Glucose Monitoring Device (10/27/2024 8:06 PM EDT) POC Glucose Monitoring Device 128(H) 70 - 100 mg/dL 10/27/2024 8:45 PM EDT [facility] Blood 10/27/2024 8:06 PM EDT 10/27/2024 8:45 PM EDT us Semaj Mcnair III, MD POINT OF CARE TEST ORDERABLES Final Result Performing Organization Address [facility] Co de Phone Number [facility] [address] [facility]. [address] * (ABNORMAL) POC Glucose Monitoring Device (10/27/2024 6:00 PM EDT) POC Glucose Monitoring Device 128(H) 70 - 100 mg/dL 10/27/2024 6:00 PM EDT [facility] Blood 10/27/2024 6:00 PM EDT 10/27/2024 6:00 PM EDT us Semaj Mcnair III, MD POINT OF CARE TEST ORDERABLES Final Result Performing Organization Address City/[facility] Co de Phone Number [facility] [address] [facility]. [address] * Lactic Acid, STAT (10/27/2024 5:41 PM EDT) Lactate 0.5 0.5 - 2.2 mmol/L 10/27/2024 6:28 PM EDT [facility] Plasma 10/27/2024 5:41 PM EDT 10/27/2024 5:49 PM EDT Narrative [facility] - 10/27/2024 6:28 PM EDT Redraw John Moreno MD LAB BLOOD ORDERABLES Final R esult Performing Organization Address [facility] Co de Phone Number [facility] [address] [facility]. [address] * (ABNORMAL) Hepatic Function Panel, STAT (10/27/2024 5:13 PM EDT) Total Bilirubin 1.7(H) 0.0 - 1.5 mg/dL 10/27/2024 5:50 PM EDT [facility] Bilirubin, Direct 1.17(H) 0.00 - 0.40 mg/dL 10/27/2024 5:50 PM EDT [facility] AST 60(H) 13 - 39 U/L 10/27/2024 5:50 PM EDT [facility] ALT 134(H) 7 - 52 U/L 10/27/2024 5:50 PM EDT [facility] Alkaline Phosphatase 27(L) 36 - 125 U/L 10/27/2024 5:50 PM EDT [facility] Total Protein 4.1(L) 6.4 - 8.9 g/dL 10/27/2024 5:50 PM EDT [facility] Albumin 2.9(L) 3.5 - 5.7 g/dL 10/27/2024 5:50 PM EDT [facility] Bilirubin, Indirect 0.53 0.00 - 1.10 mg/dL 10/27/2024 5:50 PM EDT [facility] Plasma 10/27/2024 5:13 PM EDT 10/27/2024 5:23 PM EDT Shay Plata MD LAB BLOOD ORDERABLES Final Result Performing Organization Address [facility]/ZIP Co de Phone Number [facility] [address] [facility]. [address] * (ABNORMAL) TEG-Bypass/ECMO/Liver HN (Factor function, Platelet/Fibrin Clot Strength w/Clot Breakdown, Heparinase In All Channels) (10/27/2024 5:13 PM EDT) Citrated Kaolin Reaction Time (TEGECMOLIVER) 8.0 4.6 - 9.1 minutes 10/27/2024 6:56 PM EDT [facility] Citrated Kaolin W/Heparinase Reaction Time (TEGECMOLIVER) 6.8 4.3 - 8.3 minutes 10/27/2024 6:56 PM EDT [facility] Citrated Kaolin Maximum Amplitude (TEGECMOLIVER) 55.4 52.0 - 69.0 mm 10/27/2024 6:56 PM EDT [facility] Citrated Functional Fibrinogen W/Heparinase Maximum Amplitude(TEGEC MOLIVER) 22.9 15.0 - 34.0 mm 10/27/2024 6:56 PM EDT [facility] Citrated Rapid Teg W/Heparinase Maximum Amplitude (TEGECMOLIVER) 50.8(L) 53.0 - 69.0 mm 10/27/2024 6:56 PM EDT [facility] Citrated Kaolin w/Heparinase Percent Lysis (TEGECMOLIVER) 0.1 0.0 - 3.2 % 10/27/2024 6:56 PM EDT [facility] Whole Blood (Citrate) 10/27/2024 5:13 PM EDT 10/27/2024 5:20 PM EDT Kemar Sahni MD LAB BLOOD ORDERABLES Final Result [facility] [address] * (ABNORMAL) Protime-INR (10/27/2024 5:13 PM EDT) Protime 15.2(H) 12.1 - 15.1 seconds 10/27/2024 5:40 PM EDT [facility] INR 1.1 0.9 - 1.1 10/27/2024 5:40 PM EDT [facility] Comment: RECOMMENDED THERAPEUTIC RANGES USING INR : Stable oral anticoagulant therapy: 2.0 - 3.0 Mechanical prosthetic heart valve: 2.5 - 3.5 Recurrent acute myocardial infarction: 2.5 - 3.5 Plasma 10/27/2024 5:13 PM EDT 10/27/2024 5:23 PM EDT Kemar Sahni MD LAB BLOOD ORDERABLES Final Result Performing Organization Address City/[facility]/ZIP Co de Phone Number [facility] [address] [facility]. [address] * Magnesium (10/27/2024 5:13 PM EDT) Magnesium 2.4 1.5 - 2.5 mg/dL 10/27/2024 5:53 PM EDT [facility] Plasma 10/27/2024 5:13 PM EDT 10/27/2024 5:23 PM EDT Kemar Sahni MD LAB BLOOD ORDERABLES Final Result Performing Organization Address [facility] de Phone Number [facility] [address] [facility]. [address] * (ABNORMAL) Hepatic Function Panel (10/27/2024 5:13 PM EDT) Total Bilirubin 1.7(H) 0.0 - 1.5 mg/dL 10/27/2024 5:53 PM EDT [facility] Bilirubin, Direct 1.10(H) 0.00 - 0.40 mg/dL 10/27/2024 5:53 PM EDT [facility] AST 62(H) 13 - 39 U/L 10/27/2024 5:53 PM EDT [facility] ALT 134(H) 7 - 52 U/L 10/27/2024 5:53 PM EDT [facility] Alkaline Phosphatase 27(L) 36 - 125 U/L 10/27/2024 5:53 PM EDT [facility] Total Protein 4.1(L) 6.4 - 8.9 g/dL 10/27/2024 5:53 PM EDT [facility] Albumin 2.9(L) 3.5 - 5.7 g/dL 10/27/2024 5:53 PM EDT [facility] Bilirubin, Indirect 0.60 0.00 - 1.10 mg/dL 10/27/2024 5:53 PM EDT [facility] Plasma 10/27/2024 5:13 PM EDT 10/27/2024 5:23 PM EDT Kemar Sahni MD LAB BLOOD ORDERABLES Final Result [facility] [address] [place] [address], [facility] * (ABNORMAL) Renal Function Panel w/EGFR (10/27/2024 5:13 PM EDT) Sodium 142 133 - 146 mmol/L 10/27/2024 5:53 PM EDT [facility] Potassium 3.4(L) 3.5 - 5.3 mmol/L 10/27/2024 5:53 PM EDT [facility] Chloride 109 98 - 110 mmol/L 10/27/2024 5:53 PM EDT [facility] CO2 22 21 - 33 mmol/L 10/27/2024 5:53 PM EDT [facility] Anion Gap 11 3 - 16 mmol/L 10/27/2024 5:53 PM EDT [facility] BUN 61(H) 7 - 25 mg/dL 10/27/2024 5:53 PM EDT [facility] Creatinine 2.42(H) 0.60 - 1.30 mg/dL 10/27/2024 5:53 PM EDT [facility] Glucose 125(H) 70 - 100 mg/dL 10/27/2024 5:53 PM EDT [facility] Calcium 8.8 8.6 - 10.3 mg/dL 10/27/2024 5:53 PM EDT [facility] Phosphorus 5.7(H) 2.1 - 4.7 mg/dL 10/27/2024 5:53 PM EDT [facility] Albumin 2.9(L) 3.5 - 5.7 g/dL 10/27/2024 5:53 PM EDT [facility] Osmolality, Calculated 313(H) 278 - 305 mOsm/kg 10/27/2024 5:53 PM EDT [facility] EGFR 34 10/27/2024 5:53 PM EDT [facility] Comment:As of 2021, the estimated GFR [...] LAB BLOOD ORDERABLES Final Result [facility] [address] [id number] * (ABNORMAL) CBC (10/27/2024 5:13 PM EDT) WBC 4.9 3.8 - 10.8 10E3/uL 10/27/2024 6:14 PM EDT [facility] RBC 2.44(L) 4.20 - 5.80 10E6/uL 10/27/2024 6:14 PM EDT [facility] Hemoglobin 7.4(L) 13.2 - 17.1 g/dL 10/27/2024 6:14 PM EDT [facility] Hematocrit 21.4(L) 38.5 - 50.0 % 10/27/2024 6:14 PM EDT [facility] MCV 87.6 80.0 - 100.0 fL 10/27/2024 6:14 PM EDT [facility] MCH 30.3 27.0 - 33.0 pg 10/27/2024 6:14 PM EDT [facility] MCHC 34.6 32.0 - 36.0 g/dL 10/27/2024 6:14 PM EDT [facility] RDW 19.6(H) 11.0 - 15.0 % 10/27/2024 6:14 PM EDT [facility] Platelets 47(L) 140 - 400 10E3/uL 10/27/2024 6:14 PM EDT [facility] Comment: CNV Specimen checked for clots. None detected. MPV 8.1 7.5 - 11.5 fL 10/27/2024 6:14 PM EDT [facility] Whole Blood 10/27/2024 5:13 PM EDT 10/27/2024 5:23 PM EDT Kemar Sahni MD LAB BLOOD ORDERABLES Final Result [facility] [address] * (ABNORMAL) POC Glucose Monitoring Device (10/27/2024 3:57 PM EDT) [facility] POC Glucose Monitoring Device 131(H) 70 - 100 mg/dL 10/27/2024 3:58 PM EDT [facility] Blood 10/27/2024 3:57 PM EDT 10/27/2024 3:58 PM EDT us Semaj Mcnair III, MD POINT OF CARE TEST ORDERABLES Final Result [facility] [address] * (ABNORMAL) CBC, STAT (10/27/2024 2:40 PM EDT) Pathologist [facility] WBC 5.8 3.8 - 10.8 10E3/uL 10/27/2024 2:54 PM EDT [facility] RBC 2.43(L) 4.20 - 5.80 10E6/uL 10/27/2024 2:54 PM EDT [facility] Hemoglobin 7.5(L) 13.2 - 17.1 g/dL 10/27/2024 2:54 PM EDT [facility] Hematocrit 21.5(L) 38.5 - 50.0 % 10/27/2024 2:54 PM EDT [facility] MCV 88.2 80.0 - 100.0 fL 10/27/2024 2:54 PM EDT [facility] MCH 30.7 27.0 - 33.0 pg 10/27/2024 2:54 PM EDT [facility] MCHC 34.8 32.0 - 36.0 g/dL 10/27/2024 2:54 PM EDT [facility] RDW 19.1(H) 11.0 - 15.0 % 10/27/2024 2:54 PM EDT [facility] Platelets 50(L) 140 - 400 10E3/uL 10/27/2024 2:54 PM EDT [facility] MPV 7.5 7.5 - 11.5 fL 10/27/2024 2:54 PM EDT [facility] Whole Blood 10/27/2024 2:40 PM EDT 10/27/2024 2:44 PM EDT us John Moreno MD LAB BLOOD ORDERABLES Final R esult [facility] [address] [place] [address], [facility] * (ABNORMAL) Blood Gas, Arterial, STAT (10/27/2024 2:40 PM EDT) O2 Sat, Arterial 98 10/27/2024 2:46 PM EDT [facility] FIO2 RA 10/27/2024 2:46 PM EDT [facility] pH, Arterial 7.37 7.35 - 7.45 10/27/2024 2:46 PM EDT [facility] pCO2, Arterial 35 35 - 45 mm Hg 10/27/2024 2:46 PM EDT [facility] pO2, Arterial 92 80 - 100 mm Hg 10/27/2024 2:46 PM EDT [facility] HCO3, Arterial 21(L) 22 - 26 mmol/L 10/27/2024 2:46 PM EDT [facility] CO2 Content,Arteri al 21(L) 23 - 27 mmol/L 10/27/2024 2:46 PM EDT [facility] Base Excess, Arterial -4.6(L) -2.0 - 3.0 mmol/L 10/27/2024 2:46 PM EDT [facility] %HBO2, Arterial 95.4 95.0 - 98.0 % 10/27/2024 2:46 PM EDT [facility] Carboxyhemoglo bin, Arterial 1.6 % 10/27/2024 2:46 PM EDT [facility] Comment: CARBOXYHEMOGLOBIN (CO) REFERENCE RANGES: Non-Smokers: <2 % Smokers: <8 % TOXIC: >20 % Methemoglobin, Arterial 1.0 0.0 - 1.5 % 10/27/2024 2:46 PM EDT [facility] Reduced hemoglobin, Arterial 2.1 0.0 - 5.0 % 10/27/2024 2:46 PM EDT [facility] Blood, Arterial 10/27/2024 2 :40 PM EDT 10/27/2024 2:44 PM EDT Narrative [facility] - 10/27/2024 2:46 PM EDT Post extubation John Moreno MD LAB BLOOD ORDERABLES Final R esult Performing Organization Address City/[facility]/ZIP Co de Phone Number [facility] [address] * (ABNORMAL) POC Glucose Monitoring Device (10/27/2024 2:06 PM EDT) [facility] POC Glucose Monitoring Device 134(H) 70 - 100 mg/dL 10/27/2024 2:06 PM EDT [facility] Blood 10/27/2024 2:06 PM EDT 10/27/2024 2:06 PM EDT Semaj Mcnair III, MD POINT OF CARE TEST ORDERABLES Final Result [facility] [address] [place] [address], [facility] * (ABNORMAL) Blood gas, arterial (10/27/2024 12:35 PM EDT) O2 Sat, Arterial 99 10/27/2024 12:46 PM EDT [facility] FIO2 SBT 30% 10/27/2024 12:46 PM EDT [facility] pH, Arterial 7.35 7.35 - 7.45 10/27/2024 12:46 PM EDT [facility] pCO2, Arterial 37 35 - 45 mm Hg 10/27/2024 12:46 PM EDT [facility] pO2, Arterial 182(H) 80 - 100 mm Hg 10/27/2024 12:46 PM EDT [facility] HCO3, Arterial 21(L) 22 - 26 mmol/L 10/27/2024 12:46 PM EDT [facility] CO2 Content,Arteri al 22(L) 23 - 27 mmol/L 10/27/2024 12:46 PM EDT [facility] Base Excess, Arterial -4.8(L) -2.0 - 3.0 mmol/L 10/27/2024 12:46 PM EDT [facility] %HBO2, Arterial 96.3 95.0 - 98.0 % 10/27/2024 12:46 PM EDT [facility] Carboxyhemoglo bin, Arterial 1.7 % 10/27/2024 12:46 PM EDT [facility] Comment: CARBOXYHEMOGLOBIN (CO) REFERENCE RANGES: Non-Smokers: <2 % Smokers: <8 % TOXIC: >20 % Methemoglobin, Arterial 1.4 0.0 - 1.5 % 10/27/2024 12:46 PM EDT [facility] Reduced hemoglobin, Arterial 0.6 0.0 - 5.0 % 10/27/2024 12:46 PM EDT [facility] Blood, Arterial 10/27/2024 1 2:35 PM EDT 10/27/2024 12:42 PM EDT Narrative [facility] - 10/27/2024 12:46 PM EDT Please obtain post SBT us Shay Sifuentes MD LAB BLOOD ORDERABLES Final Resu lt [facility] [address] [facility]. [address] * (ABNORMAL) TEG-Bypass/ECMO/Liver HN (Factor function, Platelet/Fibrin Clot Strength w/Clot Breakdown, Heparinase In All Channels) (10/27/2024 12:07 PM EDT) Citrated Kaolin Reaction Time (TEGECMOLIVER) 7.9 4.6 - 9.1 minutes 10/27/2024 1:24 PM EDT [facility] Citrated Kaolin W/Heparinase Reaction Time (TEGECMOLIVER) 8.3 4.3 - 8.3 minutes 10/27/2024 1:24 PM EDT [facility] Citrated Kaolin Maximum Amplitude (TEGECMOLIVER) 52.0 52.0 - 69.0 mm 10/27/2024 1:24 PM EDT [facility] Citrated Functional Fibrinogen W/Heparinase Maximum Amplitude(TEGEC MOLIVER) 20.1 15.0 - 34.0 mm 10/27/2024 1:24 PM EDT [facility] Citrated Rapid Teg W/Heparinase Maximum Amplitude (TEGECMOLIVER) 49.4(L) 53.0 - 69.0 mm 10/27/2024 1:24 PM EDT [facility] Citrated Kaolin w/Heparinase Percent Lysis (TEGECMOLIVER) 0.0 0.0 - 3.2 % 10/27/2024 1:24 PM EDT [facility] Whole Blood (Citrate) 10/27/2024 12:07 PM EDT 10/27/2024 12:09 PM EDT us Kemar Sahni MD LAB BLOOD ORDERABLES Final Result [facility] [address] [facility]. [address] * (ABNORMAL) POC Glucose Monitoring Device (10/27/2024 12:01 PM EDT) POC Glucose Monitoring Device 121(H) 70 - 100 mg/dL 10/27/2024 12:02 PM EDT [facility] Blood 10/27/2024 12:0 1 PM EDT 10/27/2024 12:01 PM EDT Semaj Mcnair III, MD POINT OF CARE TEST ORDERABLES Final Result Performing Organization Address [facility]/ZIP Co de Phone Number [facility] [address] * (ABNORMAL) POC Glucose Monitoring Device (10/27/2024 10:59 AM EDT) POC Glucose Monitoring Device 126(H) 70 - 100 mg/dL 10/27/2024 11:10 AM EDT [facility] Blood 10/27/2024 10:5 9 AM EDT 10/27/2024 11:10 AM EDT Semaj Mcnair III, MD POINT OF CARE TEST ORDERABLES Final Result Performing Organization Address [facility] Co de Phone Number [facility] [address] [facility]. [address] * ECG 12 lead (MUSE) (10/27/2024 10:17 AM EDT) 10/27/2024 10:1 7 AM EDT Narrative MUSE - 10/27/2024 2:51 PM EDT Ventricular Rate: 91 BPM Atrial Rate: 91 BPM P-R Interval: 168 ms QRS Duration: 90 ms QT: 274 ms QTc: 337 ms P [place]: 60 degrees R [place]: -30 degrees T [place]: -15 degrees Diagnosis Line: NORMAL SINUS RHYTHM ^ LEFT AXIS DEVIATION, LEFT ANTERIOR HEMIBLOCK ^ NONSPECIFIC T WAVE CHANGE ^ ABNORMAL ECG ^ ^ Confirmed by MD ROLLY, [facility] ([id number]) on 10/27/2024 2:51:52 PM Shay Sifuentes MD ECG ORDERABLES Final Result Performing Organization Address City/[facility]/ZIP Co de Phone Number MUSE * (ABNORMAL) POC Glucose Monitoring Device (10/27/2024 10:00 AM EDT) POC Glucose Monitoring Device 121(H) 70 - 100 mg/dL 10/27/2024 10:01 AM EDT [facility] Blood 10/27/2024 10:0 0 AM EDT 10/27/2024 10:01 AM EDT us Semaj Mcnair III, MD POINT OF CARE TEST ORDERABLES Final Result [facility] [address] [place] [address], [facility] * US Renal Transplant (10/27/2024 9:51 [...] US ORDERABLES Final Result * US Duplex [id number] Comp (10/27/2024 9:51 AM EDT) Anatomical Region [...] EXAM: US ABDOMEN LIMITED EXAM: US DUPLEX [id number] COMPLETE INDICATION: Post-op liver transplant COMPARISON: None [...] absent.. Pancreas: Obscured by overlying bowel gas. [place] right kidney: 12.5 cm in length. Normal [...] EXAM: US ABDOMEN LIMITED EXAM: US DUPLEX [id number] COMPLETE INDICATION: Post-op liver transplant COMPARISON: None [...] absent.. Pancreas: Obscured by overlying bowel gas. [place] right kidney: 12.5 cm in length. Normal [...] EXAM: US ABDOMEN LIMITED EXAM: US DUPLEX [id number] COMPLETE INDICATION: Post-op liver transplant COMPARISON: None [...] absent.. Pancreas: Obscured by overlying bowel gas. [place] right kidney: 12.5 cm in length. Normal [...] EXAM: US ABDOMEN LIMITED EXAM: US DUPLEX [id number] COMPLETE INDICATION: Post-op liver transplant COMPARISON: None [...] absent.. Pancreas: Obscured by overlying bowel gas. [place] right kidney: 12.5 cm in length. Normal [...] 10:38 AM EDT us Sveta Judge MD IM US ORDERABLES Final Result * CARISA Rhythm Strip - Scan (10/27/2024 9:25 AM EDT) us Scanning [place] SCAN DOCS - NO RESULTS Final Res ult * (ABNORMAL) POC Glucose Monitoring Device (10/27/2024 9:05 AM EDT) POC Glucose Monitoring Device 118(H) 70 - 100 mg/dL 10/27/2024 9:06 AM EDT [facility] Blood 10/27/2024 9:05 AM EDT 10/27/2024 9:06 AM EDT Semaj Mcnair III, MD POINT OF CARE TEST ORDERABLES Final Result [facility] [address] [place] [address], [facility] * X-ray Portable Chest (10/27/2024 8:58 [...] - 15.1 seconds 10/27/2024 8:35 AM EDT [facility] [facility] INR 1.2(H) 0.9 - 1.1 10/27/2024 8:35 AM EDT [facility] Comment: RECOMMENDED THERAPEUTIC RANGES USING INR : Stable oral anticoagulant therapy: 2.0 - 3.0 Mechanical prosthetic heart valve: 2.5 - 3.5 Recurrent acute myocardial infarction: 2.5 - 3.5 Plasma 10/27/2024 8:16 AM EDT 10/27/2024 8:20 AM EDT us John Moreno MD LAB BLOOD ORDERABLES Final R esult [facility] [address] [place], [place] [address] * Magnesium (10/27/2024 8:00 AM EDT) Magnesium 1.8 1.5 - 2.5 mg/dL 10/27/2024 10:50 AM EDT [facility] Plasma 10/27/2024 8:00 AM EDT 10/27/2024 10:31 AM EDT Kemar Sahni MD LAB BLOOD ORDERABLES Final Result [facility] [address] * (ABNORMAL) Renal Function Panel w/EGFR (10/27/2024 8:00 AM EDT) Sodium 142 133 - 146 mmol/L 10/27/2024 10:18 AM EDT [facility] Potassium 3.0(L) 3.5 - 5.3 mmol/L 10/27/2024 10:18 AM EDT [facility] Chloride 109 98 - 110 mmol/L 10/27/2024 10:18 AM EDT [facility] CO2 21 21 - 33 mmol/L 10/27/2024 10:18 AM EDT [facility] Anion Gap 12 3 - 16 mmol/L 10/27/2024 10:18 AM EDT [facility] BUN 59(H) 7 - 25 mg/dL 10/27/2024 10:18 AM EDT [facility] Creatinine 2.54(H) 0.60 - 1.30 mg/dL 10/27/2024 10:18 AM EDT [facility] Glucose 111(H) 70 - 100 mg/dL 10/27/2024 10:18 AM EDT [facility] Calcium 9.1 8.6 - 10.3 mg/dL 10/27/2024 10:18 AM EDT [facility] Phosphorus 5.5(H) 2.1 - 4.7 mg/dL 10/27/2024 10:18 AM EDT [facility] Albumin 3.0(L) 3.5 - 5.7 g/dL 10/27/2024 10:18 AM EDT [facility] Osmolality, Calculated 311(H) 278 - 305 mOsm/kg 10/27/2024 10:18 AM EDT [facility] EGFR 32 10/27/2024 10:18 AM EDT [facility] Comment:As of 2021, the estimated GFR [...] LAB BLOOD ORDERABLES Final Result [facility] [address] * (ABNORMAL) Hepatic Function Panel, STAT (10/27/2024 8:00 AM EDT) Total Bilirubin 1.3 0.0 - 1.5 mg/dL 10/27/2024 8:51 AM EDT [facility] Bilirubin, Direct 0.93(H) 0.00 - 0.40 mg/dL 10/27/2024 8:51 AM EDT [facility] AST 88(H) 13 - 39 U/L 10/27/2024 8:51 AM EDT [facility] ALT 149(H) 7 - 52 U/L 10/27/2024 8:51 AM EDT [facility] Alkaline Phosphatase 26(L) 36 - 125 U/L 10/27/2024 8:51 AM EDT [facility] Total Protein 4.0(L) 6.4 - 8.9 g/dL 10/27/2024 8:51 AM EDT [facility] Albumin 3.0(L) 3.5 - 5.7 g/dL 10/27/2024 8:51 AM EDT [facility] Bilirubin, Indirect 0.37 0.00 - 1.10 mg/dL 10/27/2024 8:51 AM EDT [facility] Plasma 10/27/2024 8:00 AM EDT 10/27/2024 8:20 AM EDT Semaj Mcnair III, MD LAB BLOOD ORDERABLE S Final Result Performing Organization Address [facility] Co de Phone Number [facility] [address] [place] [address] * (ABNORMAL) Lactic Acid, STAT (10/27/2024 8:00 AM EDT) Lactate 0.4(L) 0.5 - 2.2 mmol/L 10/27/2024 8:43 AM EDT [facility] Plasma 10/27/2024 8:00 AM EDT 10/27/2024 8:20 AM EDT Semaj Mcnair III, MD LAB BLOOD ORDERABLE S Final Result Performing Organization Address [facility] de Phone Number [facility] [address] [place] [address] * (ABNORMAL) Blood Gas, Arterial, STAT (10/27/2024 8:00 AM EDT) O2 Sat, Arterial 100 10/27/2024 8:23 AM EDT [facility] pH, Arterial 7.36 7.35 - 7.45 10/27/2024 8:23 AM EDT [facility] pCO2, Arterial 37 35 - 45 mm Hg 10/27/2024 8:23 AM EDT [facility] pO2, Arterial 245(H) 80 - 100 mm Hg 10/27/2024 8:23 AM EDT [facility] HCO3, Arterial 22 22 - 26 mmol/L 10/27/2024 8:23 AM EDT [facility] CO2 Content,Arteri al 22(L) 23 - 27 mmol/L 10/27/2024 8:23 AM EDT [facility] Base Excess, Arterial -4.2(L) -2.0 - 3.0 mmol/L 10/27/2024 8:23 AM EDT [facility] %HBO2, Arterial 96.5 95.0 - 98.0 % 10/27/2024 8:23 AM EDT [facility] Carboxyhemoglo bin, Arterial 2.2 % 10/27/2024 8:23 AM EDT [facility] Comment: CARBOXYHEMOGLOBIN (CO) REFERENCE RANGES: Non-Smokers: <2 % Smokers: <8 % TOXIC: >20 % Methemoglobin, Arterial 1.2 0.0 - 1.5 % 10/27/2024 8:23 AM EDT [facility] Reduced hemoglobin, Arterial 0.0 0.0 - 5.0 % 10/27/2024 8:23 AM EDT [facility] Blood, Arterial 10/27/2024 8 :00 AM EDT 10/27/2024 8:19 AM EDT Narrative [facility] - 10/27/2024 8:23 AM EDT Specimen is beyond 15 minutes from time of collection. Results may be compromised. Review results critically. us Kemar Sahni MD LAB BLOOD ORDERABLES Final Result [facility] [address] * (ABNORMAL) TEG-Bypass/ECMO/Liver HN (Factor function, Platelet/Fibrin Clot Strength w/Clot Breakdown, Heparinase In All Channels) (10/27/2024 8:00 AM EDT) Citrated Kaolin Reaction Time (TEGECMOLIVER) 7.8 4.6 - 9.1 minutes 10/27/2024 9:39 AM EDT [facility] Citrated Kaolin W/Heparinase Reaction Time (TEGECMOLIVER) 8.0 4.3 - 8.3 minutes 10/27/2024 9:39 AM EDT [facility] Citrated Kaolin Maximum Amplitude (TEGECMOLIVER) 52.7 52.0 - 69.0 mm 10/27/2024 9:39 AM EDT [facility] Citrated Functional Fibrinogen W/Heparinase Maximum Amplitude(TEGEC MOLIVER) 19.0 15.0 - 34.0 mm 10/27/2024 9:39 AM EDT [facility] Citrated Rapid Teg W/Heparinase Maximum Amplitude (TEGECMOLIVER) 49.5(L) 53.0 - 69.0 mm 10/27/2024 9:39 AM EDT [facility] Citrated Kaolin w/Heparinase Percent Lysis (TEGECMOLIVER) 0.0 0.0 - 3.2 % 10/27/2024 9:39 AM EDT [facility] Whole Blood (Citrate) 10/27/2024 8:00 AM EDT 10/27/2024 8:19 AM EDT Kemar Sahni MD LAB BLOOD ORDERABLES Final Result Performing Organization Address [facility] Co de Phone Number [facility] [address] [place] [address] * (ABNORMAL) Katie-Watkins virus VCA IgG Antibody (10/27/2024 8:00 AM EDT) EBV VCA IgG Positive( A) Negative 10/27/2024 11:30 AM EDT [facility] Comment:Presence of detectab le VCA IgG antibodies. 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 EBV IGG NUM 314.00(H) 0.00 - 17.99 U/mL 10/27/2024 11:30 AM EDT [facility] Serum 10/27/2024 8:00 AM EDT 10/27/2024 8:20 AM EDT Kemar Sahni MD LAB BLOOD ORDERABLES Final Result Performing Organization Address City/[facility] Co de Phone Number [facility] [address] [place] [address] * Hemoglobin A1c (10/27/2024 8:00 AM EDT) Hemoglobin A1C 5.0 4.0 - 5.6 % 10/27/2024 11:12 AM EDT [facility] Comment: Hemoglobin A1c Interpretation Guidelines: Normal: [...] Result Performing Organization Address City/[facility] Co de Phone Number [facility] [address] * (ABNORMAL) POC Glucose Monitoring Device (10/27/2024 7:59 AM EDT) [facility] POC Glucose Monitoring Device 113(H) 70 - 100 mg/dL 10/27/2024 7:59 AM EDT [facility] Blood 10/27/2024 7:59 AM EDT 10/27/2024 7:59 AM EDT Semaj Mcnair III, MD POINT OF CARE TEST ORDERABLES Final Result Performing Organization Address City/[facility] Co de Phone Number [facility] [address] * X-ray Abdomen AP view (10/27/2024 [...] Hansen MD at 10/27/2024 7:49 AM EDT Semaj Mcnair III, MD IMG DIAGNOSTIC IMAG ING ORDERABLES Final Result * Transfuse RBC (10/27/2024 6:29 AM EDT) Ben Blake MD NURSING TREATMENT ORDERABLES - BLOOD ADMIN Final Result * Prepare Cryoprecipitate, 1 Units (10/27/2024 6:16 AM EDT) Product Code N4183K95 [facility] Unit Number [id number] [facility] Dispense Status Presumed Transfused_PT HCLL Blood Expiration Date [id number] HCLL Coding System VZYK491 HCLL Product Code H8455W24 HCLL Unit Number [id number] [facility]LL Dispense Status Presumed Transfused_PT [facility]LL Blood Expiration Date 157742455739 HCLL Coding System EWQU977 HCLL Blood Bank Product John Pina MD BLOOD BANK PRODUCT ORDERABLES F inal Result Performing Organization Address City/[facility] Co de Phone Number HC[facility] * Prepare Platelets, leukoreduced, 1 Units (10/27/2024 6:16 AM EDT) Product Code R8565E41 [facility] Unit Number [id number] [facility] Dispense Status Presumed Transfused_PT [facility] Blood Expiration Date 419209359189 HCLL Coding System [id number] [facility] Blood Bank Product Eber Quinones MD BLOOD BANK PRODUCT ORDER PAL Final Result Performing Organization Address [facility] de Phone Number HC[facility] * Prepare Cryoprecipitate, 1 Units (10/27/2024 6:16 AM EDT) Product Code B8166Y94 [facility] Unit Number [id number] [facility] Dispense Status Presumed Transfused_PT HCLL Blood Expiration Date HCLL Coding System [id number] HCLL Product Code G8431A50 [facility]LL Unit Number [id number] [facility] Dispense Status Presumed Transfused_PT [facility]LL Blood Expiration Date 704008441676 HCLL Coding System HOJW018 [facility] Blood Bank Product Eber Quinones MD BLOOD BANK PRODUCT ORDER PAL Final Result Performing Organization Address City/[facility] Co de Phone Number [facility] * Prepare Fresh Frozen Plasma, 10 Units (10/27/2024 6:16 AM EDT) Product Code Y5797A69 [facility] Unit Number [id number] [facility] Dispense Status Presumed Transfused_PT HCLL Blood Expiration Date HCLL Coding System OCQL664 HCLL Product Code W2657G06 HCLL Unit Number [id number] HCLL Dispense Status Presumed Transfused_PT [facility] Blood Expiration Date HCLL Coding System GIPY964 HCLL Product Code D2252X01 HCLL Unit Number [id number] HCLL Dispense Status Presumed Transfused_PT HCLL Blood Expiration Date HCLL Coding System FGIL143 HCLL Product Code V3812K87 HCLL Unit Number [id number] HCLL Dispense Status Presumed Transfused_PT HCLL Blood Expiration Date 612292068037 HCLL Coding System SAJO167 HCLL Product Code R5533M42 HCLL Unit Number [id number] HCLL Dispense Status Released from Crossmatch_RE HCLL Blood Expiration Date HCLL Coding System MUMF760 HCLL Product Code M2612X56 HCLL Unit Number [id number] HCLL Dispense Status Released from Crossmatch_RE HCLL Blood Expiration Date HCLL Coding System UBSX945 HCLL Product Code E5710J11 HCLL Unit Number [id number] HCLL Dispense Status Presumed Transfused_PT HCLL Blood Expiration Date HCLL Coding System MDAL671 HCLL Product Code E1379U98 HCLL Unit Number [id number] HCLL Dispense Status Presumed Transfused_PT HCLL Blood Expiration Date HCLL Coding System VZXT514 HCLL Product Code S3709P64 HCLL Unit Number [id number] HCLL Dispense Status Presumed Transfused_PT [facility] Blood Expiration Date HCLL Coding System EDTJ999 HCLL Product Code C2046U54 HCLL Unit Number [id number] HCLL Dispense Status Presumed Transfused_PT HCLL Blood Expiration Date HCLL Coding System LWNR626 [facility] Blood Bank Product Leandra Og MD BLOOD BANK PRODUCT ORD ERABLES Final Result HC[facility] * Prepare Platelets, leukoreduced, 1 Units (10/27/2024 6:16 AM EDT) Product Code H2212N11 HCLL Unit Number [id number] HCLL Dispense Status Presumed Transfused_PT HCLL Blood Expiration Date 567268722220 HCLL Coding System ZAOX018 [facility] Blood Bank Product Ben Blake MD BLOOD BANK PRODUCT ORDERABLES Final Result Performing Organization Address City/[facility]/ZIP Co de Phone Number HCLL * Prepare Fresh Frozen Plasma (10/27/2024 6:15 AM EDT) Product Code Q5198B75 HCLL Unit Number [id number] [facility] Dispense Status Presumed Transfused_PT HCLL Blood Expiration Date HCLL Coding System FUER721 HCLL Product Code U2853T73 HCLL Unit Number [id number] HCLL Dispense Status Released from Crossmatch_RE HCLL Blood Expiration Date HCLL Coding System ROFC604 HCLL Product Code Q7953Y46 HCLL Unit Number [id number] HCLL Dispense Status Presumed Transfused_PT [facility] Blood Expiration Date HCLL Coding System ZOHO808 HCLL Product Code U8540M46 HCLL Unit Number [id number] HCLL Dispense Status Presumed Transfused_PT [facility]LL Blood Expiration Date HCLL Coding System RVDO753 HCLL Product Code J3948K47 HCLL Unit Number [id number] HCLL Dispense Status Released from Crossmatch_RE HCLL Blood Expiration Date HCLL Coding System FTIS668 HCLL Attending Provider Unknown BLOOD BANK PRODUCT OR DERABLES Final Result Performing Organization Address [facility] de Phone Number HC[facility] * Prepare RBC, leukoreduced (10/27/2024 6:15 AM EDT) Product Code X8952B41 HCLL Unit Number [id number] HCLL Dispense Status Presumed Transfused_PT HCLL Blood Expiration Date 140312928338 HCLL Coding System ZXJU972 HCLL Product Code X7614W12 HCLL Unit Number [id number] HCLL Dispense Status Released from Crossmatch_RE HCLL Blood Expiration Date HCLL Coding System MPSG104 HCLL Product Code N1088Y01 HCLL Unit Number [id number] HCLL Dispense Status Released from Crossmatch_RE HCLL Blood Expiration Date 053019306504 HCLL Coding System XFXP354 HCLL Product Code E8059Q07 HCLL Unit Number [id number] HCLL Dispense Status Released from Crossmatch_RE HCLL Blood Expiration Date 519170189086 HCLL Coding System TKMF297 HCLL Product Code M9894S13 HCLL Unit Number [id number] HCLL Dispense Status Released from Crossmatch_RE HCLL Blood Expiration Date 900235555545 HCLL Coding System OMQP594 HCLL us Attending Provider Unknown BLOOD BANK PRODUCT OR DERABLES Final Result Performing Organization Address [facility] de Phone Number HC[facility] * Prepare RBC, leukoreduced, 10 Units (10/27/2024 6:15 AM EDT) Product Code T8470J02 HCLL Unit Number [id number] [facility] Dispense Status Presumed Transfused_PT HCLL Blood Expiration Date 670632738571 HCLL Coding System ETAJ068 HCLL Product Code J5941H52 HCLL Unit Number [id number] HCLL Dispense Status Presumed Transfused_PT HCLL Blood Expiration Date 388037125519 HCLL Coding System ARNF636 HCLL Product Code C1032L90 HCLL Unit Number [id number] HCLL Dispense Status Presumed Transfused_PT HCLL Blood Expiration Date 411434296424 HCLL Coding System OMLH425 HCLL Product Code H2451O31 HCLL Unit Number [id number] HCLL Dispense Status Presumed Transfused_PT HCLL Blood Expiration Date 105977095147 HCLL Coding System NYBP185 HCLL Product Code Z5687P25 HCLL Unit Number [id number] HCLL Dispense Status Presumed Transfused_PT HCLL Blood Expiration Date 253648424087 HCLL Coding System VVOH232 HCLL Product Code T6726R77 HCLL Unit Number [id number] HCLL Dispense Status Presumed Transfused_PT HCLL Blood Expiration Date 776270495287 HCLL Coding System MOCQ006 HCLL Product Code M6078X82 HCLL Unit Number [id number] HCLL Dispense Status Presumed Transfused_PT HCLL Blood Expiration Date 775470013828 HCLL Coding System BJLZ185 HCLL Product Code F1441S59 HCLL Unit Number [id number] HCLL Dispense Status Presumed Transfused_PT HCLL Blood Expiration Date 600409054166 HCLL Coding System HXLO442 HCLL Product Code L0361U99 HCLL Unit Number [id number] HCLL Dispense Status Presumed Transfused_PT HCLL Blood Expiration Date 259822891775 HCLL Coding System SAQZ831 HCLL Product Code U2560G73 HCLL Unit Number [id number] HCLL Dispense Status Presumed Transfused_PT HCLL Blood Expiration Date 242567677365 HCLL Coding System FGAM748 HCLL Blood Bank Product us Leandra Og MD BLOOD BANK PRODUCT ORD ERABLES Final Result HC[facility] * Transfuse Platelets (10/27/2024 6:09 AM EDT) us Ben Blake MD NURSING TREATMENT ORDERABLES - BLOOD ADMIN Final Result * (ABNORMAL) Arterial Blood Gas Panel (10/27/2024 6:09 AM EDT) O2Sat (ABGP) 100 10/27/2024 6:17 AM EDT [facility] pH (ABGP) 7.30(L) 7.35 - 7.45 10/27/2024 6:17 AM EDT [facility] PCO2 (ABGP) 41 35 - 45 mm Hg 10/27/2024 6:17 AM EDT [facility] PO2 (ABGP) 192(H) 80 - 100 mm Hg 10/27/2024 6:17 AM EDT [facility] HCO3 (ABGP) 21(L) 22 - 26 mmol/L 10/27/2024 6:17 AM EDT [facility] CO2 Content (ABGP) 22(L) 23 - 27 mmol/L 10/27/2024 6:17 AM EDT [facility] Base Excess (ABGP) -5.7(L) -2.0 - 3.0 mmol/L 10/27/2024 6:17 AM EDT [facility] Sodium (ABGP) 138 136 - 146 mEq/L 10/27/2024 6:17 AM T [facility] Potassium (ABGP) 3.3(L) 3.5 - 5.0 mEq/L 10/27/2024 6:17 AM [facility] Comment:In the event of in-v itro hemolysis, potassium results may be falsely elevated. Always interpret lab results in conjunction with clinical findings. If hemolysis is suspected, a serum sample may be collected for repeat assessment of potassium. Calcium, Free (ABGP) 5.28 4.50 - 5.30 mg/dL 10/27/2024 6:17 AM EDT [facility] Glucose (ABGP) 112(H) 70 - 100 mg/dL 10/27/2024 6:17 AM [facility] Comment:There is interferenc e with whole blood glucose results on this method when Hematocrit is <25% or >60%. HCT (ABGP) 20.0(L) 40.0 - 52.0 % 10/27/2024 6:17 AM EDT [facility] HGB (ABGP) 6.5(L) 14.0 - 18.0 g/dL 10/27/2024 6:17 AM EDT [facility] %HBO2 (ABGP) 96.8 95.0 - 98.0 % 10/27/2024 6:17 AM EDT [facility] Carboxyhgb (ABGP) 2.1 % 025 6:17 AM EDT [facility] Comment: CARBOXYHEMOGLOBIN (CO) REFERENCE RANGES: Non-Smokers: <2 % Smokers: <8 % TOXIC: >20 % Methemoglobin (ABGP) 1.0 0.0 - 1.5 % 10/27/2024 6:17 AM EDT [facility] Reduced Hemoglobin (ABGP) 0.2 0.0 - 5.0 % 10/27/2024 6:17 AM EDT [facility] Lactic Acid (ABGP) 0.4(L) 0.5 - 1.6 mmol/L 10/27/2024 6:17 AM EDT [facility] Blood, Arterial 10/27/2024 6 :09 AM EDT 10/27/2024 6:14 AM EDT Ben Blake MD LAB BLOOD ORDERABLES Final Re sult [facility] [address] [id number], [facility] * Transfuse Fresh Frozen Plasma (10/27/2024 [...] - 100 mg/dL 10/27/2024 4:47 AM EDT [facility] Blood 10/27/2024 4:46 AM EDT 10/27/2024 4:47 AM EDT Semaj Mcnair III, MD POINT OF CARE TEST ORDERABLES Final Result [facility] [address] [place], [place] [address] * Transfuse Platelets (10/27/2024 4:24 AM EDT) Result [facility] Ben Blake MD NURSING TREATMENT ORDERABLES - BLOOD ADMIN Final Result * Transfuse Fresh Frozen Plasma (10/27/2024 4:07 AM EDT) Ben Blake MD NURSING TREATMENT ORDERABLES - BLOOD ADMIN Final Result * Transfuse RBC (10/27/2024 3:52 AM EDT) Result [facility] Ben Blake MD NURSING TREATMENT ORDERABLES - BLOOD ADMIN Final Result * (ABNORMAL) Arterial Blood Gas Panel (10/27/2024 3:07 AM EDT) O2Sat (ABGP) 100 10/27/2024 3:21 AM EDT [facility] pH (ABGP) 7.32(L) 7.35 - 7.45 10/27/2024 3:21 AM EDT [facility] PCO2 (ABGP) 38 35 - 45 mm Hg 10/27/2024 3:21 AM EDT [facility] PO2 (ABGP) 176(H) 80 - 100 mm Hg 10/27/2024 3:21 AM EDT [facility] HCO3 (ABGP) 20(L) 22 - 26 mmol/L 10/27/2024 3:21 AM EDT [facility] CO2 Content (ABGP) 21(L) 23 - 27 mmol/L 10/27/2024 3:21 AM EDT [facility] Base Excess (ABGP) -6.0(L) -2.0 - 3.0 mmol/L 10/27/2024 3:21 AM EDT [facility] Sodium (ABGP) 138 136 - 146 mEq/L 10/27/2024 3:21 AM EDT [facility] Potassium (ABGP) 3.0(L) 3.5 - 5.0 mEq/L 10/27/2024 3:21 AM EDT [facility] Comment:In the event of in-v itro hemolysis, potassium results may be falsely elevated. Always interpret lab results in conjunction with clinical findings. If hemolysis is suspected, a serum sample may be collected for repeat assessment of potassium. Calcium, Free (ABGP) 5.28 4.50 - 5.30 mg/dL 10/27/2024 3:21 AM EDT [facility] Glucose (ABGP) 108(H) 70 - 100 mg/dL 10/27/2024 3:21 AM T [facility] Comment:There is interferenc e with whole blood glucose results on this method when Hematocrit is <25% or >60%. HCT (ABGP) 22.0(L) 40.0 - 52.0 % 10/27/2024 3:21 AM EDT [facility] HGB (ABGP) 7.3(L) 14.0 - 18.0 g/dL 10/27/2024 3:21 AM T [facility] %HBO2 (ABGP) 97.3 95.0 - 98.0 % 10/27/2024 3:21 AM EDT [facility] Carboxyhgb (ABGP) 1.9 % 025 3:21 AM EDT [facility] Comment: CARBOXYHEMOGLOBIN (CO) REFERENCE RANGES: Non-Smokers: <2 % Smokers: <8 % TOXIC: >20 % Methemoglobin (ABGP) 0.8 0.0 - 1.5 % 10/27/2024 3:21 AM EDT [facility] Reduced Hemoglobin (ABGP) 0.0 0.0 - 5.0 % 10/27/2024 3:21 AM T [facility] [facility] Lactic Acid (ABGP) 0.3(L) 0.5 - 1.6 mmol/L 10/27/2024 3:21 AM T [facility] Blood, Arterial 10/27/2024 3 :07 AM EDT 10/27/2024 3:14 AM EDT us Ben Blake MD LAB BLOOD ORDERABLES Final Re sult [facility] [address] [place] [address], [facility] * Surgical Pathology Exam (10/27/2024 2:38 AM EDT) Tissue LEFT KIDNEY STRUCTURE / Unknown 10/27/2024 2:38 AM EDT Narrative [facility] - 10/27/2024 12:00 AM EDT CASE: [id number] PATIENT: BLAIR GILBERT Clinical History: Transplant kidney with bile duct reconstruction Pre-Operative Diagnosis: Acute kidney injury superimposed on CKD Post-Operative Diagnosis: None Given Specimen(s) Submitted: A. baseline renal biopsy ; B. right lobe liver biopsy; C. left lobe liver biopsy CPT Code(s): 80159 X 1; 22497 X 2; 39594 X 4 Additional Information: FINAL DIAGNOSIS: A. [...] parenchyma, which is entirely submitted in cassette [id number]. (NAA Mckeon/johnnie) B. Received in formalin, labeled with the patient's name Blair Gilbert and right lobe liver biopsy are two green-brown tissue cores measuring 1.8 and 2.0 cm in length, each with a diameter of 0.1 cm, which are entirely submitted between blue biopsy sponges in cassette [id number] B1-B2. (NAA Mckeon/nereida) C. Received in formalin, labeled with the patient's name Blair Gilbert and left lobe liver biopsy are two green-georges tissue cores measuring 1.2 and 1.4 cm in length, each with a diameter of 0.1 cm, which are entirely submitted between blue biopsy sponges in cassette [id number] C1-C2. (NAA Mckeon/ns) Microscopic Description: I, the attending pathologist, have personally reviewed all prosector/resident work and pathology slides to determine final diagnosis. Control Materials Reacted Appropriately. Final Diagnosis performed by CLARE FALL MD Pathologist Electronically signed 10/31/2024 01:07:09 PM The Pathologist signing this report is located at [facility], [address] [place] [address], [id number], , CLIA ID: [id number] ADDENDUM: A. Kidney, allograft, baseline, wedge biopsy: [...] Pathologist signing this report is located at [facility], [address] [place] [address], [id number], , CLIA ID: [id number] us Kemar Sahni MD PATHOLOGY/CYTOLOGY ORDERABL ES Edited Result - Final [facility] * Anaerobic culture (10/27/2024 2:15 AM EDT) Culture Result No Anaerobes Isolated in 5 Days [facility] Fluid SPECIMEN FROM KIDNEY / Unknown 10/27/2024 2:15 AM EDT 10/27/2024 4:24 AM EDT Narrative [facility] - 10/31/2024 11:43 AM EDT 1) perfusate us Semaj Mcnair III, MD MICROBIOLOGY - GENE RAL ORDERABLES Final Result Performing Organization Address [facility] Co de Phone Number [facility] [address] [place] [address]. [address] * Routine Culture plus Stain (10/27/2024 2:15 AM EDT) [facility] Gram Stain Result No Polymorphonuclear Leukocytes Seen [facility] Gram Stain Result No Organisms Seen; [facility] Culture Result No Growth After 3 Days [facility] Fluid SPECIMEN FROM KIDNEY / Unknown 10/27/2024 2:15 AM EDT 10/27/2024 4:24 AM EDT Narrative [facility] - 10/30/2024 9:26 AM EDT 1) perfusate us Semaj Mcnair III, MD MICROBIOLOGY - GENE RAL ORDERABLES Final Result Performing Organization Address [facility] de Phone Number [facility] [address] [facility]. [address] * Transfuse Platelets Transfusion Rate: Per dept routine (10/27/2024 1:52 AM EDT) us John Pina MD NURSING TREATMENT ORDERABLES - BLOOD ADMIN Final Result Performing Organization Address [facility] de Phone Number EXTERNAL * Transfuse Platelets Transfusion Rate: Per dept routine, 1 Units (10/27/2024 1:52 AM EDT) us John Pina MD NURSING TREATMENT ORDERABLES - BLOOD ADMIN Final Result Performing Organization Address [facility] de Phone Number EXTERNAL * (ABNORMAL) TEG-Standard Global Hemostasis (Rapid TEG with Heparin Effect, Contains a Baseline TEG) (10/27/2024 1:51 AM EDT) Citrated Kaolin Reaction Time (TEGHEPARINASE) 10.6(H) 4.6 - 9.1 minutes 10/27/2024 2:44 AM EDT [facility] Citrated Rapid Teg Maximum Amplitude (TEGHEPARINASE) 42.3(L) 52.0 - 70.0 mm 10/27/2024 2:44 AM EDT [facility] Citrated Functional Fibrinogen Maximum Amplitude (TEGHEPARINASE) 15.0 15.0 - 32.0 mm 10/27/2024 2:44 AM EDT [facility] Citrated Kaolin W/Heparinase Reaction Time (TEGHEPARINASE) 10.5(H) 4.3 - 8.3 minutes 10/27/2024 2:44 AM EDT [facility] Citrated Kaolin K-Time (TEGHEPARINASE) 2.9(A) 0.8 - 2.1 minutes 10/27/2024 2:44 AM EDT [facility] Citrated Kaolin Angle (TEGHEPARINASE) 60.4(A) 63.0 - 78.0 degrees 10/27/2024 2:44 AM EDT [facility] Citrated Kaolin Maximum Amplitude (TEGHEPARINASE) 42.9(L) 52.0 - 69.0 mm 10/27/2024 2:44 AM EDT [facility] Citrated Functional Fibrinogen- Fibrinogen Level (TEGHEPARINASE) 273.7(L) 278.0 - 581.0 mg/dL 10/27/2024 2:44 AM EDT [facility] Whole Blood (Citrate) 10/27/2024 1:51 AM EDT 10/27/2024 2:03 AM EDT us John Pina MD LAB BLOOD ORDERABLES Final Resu lt [facility] [address] [place] [address], [facility] * (ABNORMAL) POC Glucose Monitoring Device (10/27/2024 1:50 AM EDT) POC Glucose Monitoring Device 121(H) 70 - 100 mg/dL 10/27/2024 1:51 AM EDT [facility] Blood 10/27/2024 1:50 AM EDT 10/27/2024 1:51 AM EDT us Semaj Mcnair III, MD POINT OF CARE TEST ORDERABLES Final Result Performing Organization Address City/[facility]/ZIP Co de Phone Number [facility] [address] [facility] [address], [facility] * Transfuse Cryoprecipitate Transfusion Rate: Per dept routine (10/27/2024 1:25 AM EDT) us John Pina MD NURSING TREATMENT ORDERABLES - BLOOD ADMIN Final Result Performing Organization Address City/[facility] Co de Phone [...] - 100 mg/dL 10/27/2024 1:22 AM EDT [facility] Blood 10/27/2024 1:21 AM EDT 10/27/2024 1:21 AM EDT us Semaj Mcnair III, MD POINT OF CARE TEST ORDERABLES Final Result Performing Organization Address [facility] Co de Phone Number [facility] [address] [facility] [address], [facility] * Transfuse Fresh Frozen Plasma Transfusion [...] - 5.40 mg/dL 10/27/2024 12:37 AM EDT [facility] Comment:Free calcium levels vary inversely with pH by approximately 5% for each 0.1 unit of pH change. Assay results have been normalized to pH = 7.40. Serum 10/27/2024 12:1 3 AM EDT 10/27/2024 12:29 AM EDT Narrative [facility] - 10/27/2024 12:37 AM EDT This test has been developed and its performance characteristics determined by [facility] which is certified under the [...] ORDERABLES Final Resu lt Performing Organization Address [facility] Co de Phone Number [facility] [address] * (ABNORMAL) Blood Gas, Arterial, STAT (10/27/2024 12:13 AM EDT) O2 Sat, Arterial 100 10/27/2024 12:23 AM EDT [facility] FIO2 30 10/27/2024 12:23 AM EDT [facility] pH, Arterial 7.32(L) 7.35 - 7.45 10/27/2024 12:23 AM EDT [facility] pCO2, Arterial 37 35 - 45 mm Hg 10/27/2024 12:23 AM EDT [facility] pO2, Arterial 137(H) 80 - 100 mm Hg 10/27/2024 12:23 AM EDT [facility] HCO3, Arterial 20(L) 22 - 26 mmol/L 10/27/2024 12:23 AM EDT [facility] CO2 Content,Arteri al 20(L) 23 - 27 mmol/L 10/27/2024 12:23 AM EDT [facility] Base Excess, Arterial -6.4(L) -2.0 - 3.0 mmol/L 10/27/2024 12:23 AM EDT [facility] %HBO2, Arterial 96.2 95.0 - 98.0 % 10/27/2024 12:23 AM EDT [facility] Carboxyhemoglo bin, Arterial 1.9 % 10/27/2024 12:23 AM EDT [facility] Comment: CARBOXYHEMOGLOBIN (CO) REFERENCE RANGES: Non-Smokers: <2 % Smokers: <8 % TOXIC: >20 % Methemoglobin, Arterial 1.5 0.0 - 1.5 % 10/27/2024 12:23 AM EDT [facility] Reduced hemoglobin, Arterial 0.4 0.0 - 5.0 % 10/27/2024 12:23 AM EDT [facility] Blood, Arterial 10/27/2024 1 2:13 AM EDT 10/27/2024 12:18 AM EDT us John Pina MD LAB BLOOD ORDERABLES Final Resu lt [facility] [address] [place] [address], [facility] * (ABNORMAL) TEG-Bypass/ECMO/Liver HN (Factor function, Platelet/Fibrin Clot Strength w/Clot Breakdown, Heparinase In All Channels) (10/27/2024 12:13 AM EDT) [facility] Citrated Kaolin Reaction Time (TEGECMOLIVER) 9.1 4.6 - 9.1 minutes 10/27/2024 1:43 AM EDT [facility] Citrated Kaolin W/Heparinase Reaction Time (TEGECMOLIVER) 9.7(H) 4.3 - 8.3 minutes 10/27/2024 1:43 AM EDT [facility] Citrated Kaolin Maximum Amplitude (TEGECMOLIVER) <40.0(L) 52.0 - 69.0 mm 10/27/2024 1:43 AM EDT [facility] Citrated Functional Fibrinogen W/Heparinase Maximum Amplitude(TEGEC MOLIVER) 11.9(L) 15.0 - 34.0 mm 10/27/2024 1:43 AM EDT [facility] Citrated Rapid Teg W/Heparinase Maximum Amplitude (TEGECMOLIVER) 31.6(L) 53.0 - 69.0 mm 10/27/2024 1:43 AM EDT [facility] Citrated Kaolin w/Heparinase Percent Lysis (TEGECMOLIVER) 0.0 0.0 - 3.2 % 10/27/2024 1:43 AM EDT [facility] Whole Blood (Citrate) 10/27/2024 12:13 AM EDT 10/27/2024 12:18 AM EDT Kemar Sahni MD LAB BLOOD ORDERABLES Final Result Performing Organization Address [facility] Co de Phone Number [facility] [address] [place] [address]. [address] * (ABNORMAL) Lactic Acid (10/27/2024 12:13 AM EDT) Lactate 0.2(L) 0.5 - 2.2 mmol/L 10/27/2024 12:59 AM EDT [facility] Plasma 10/27/2024 12:1 3 AM EDT 10/27/2024 12:31 AM EDT Kemar Sahni MD LAB BLOOD ORDERABLES Final Result [facility] [address] * Magnesium (10/27/2024 12:13 AM EDT) Magnesium 1.8 1.5 - 2.5 mg/dL 10/27/2024 12:52 AM EDT [facility] Plasma 10/27/2024 12:1 3 AM EDT 10/27/2024 12:29 AM EDT Kemar Sahni MD LAB BLOOD ORDERABLES Final Result [facility] [address] [place], [place] [id number] [place] [address] * (ABNORMAL) Hepatic Function Panel (10/27/2024 12:13 AM EDT) Total Bilirubin 1.6(H) 0.0 - 1.5 mg/dL 10/27/2024 12:52 AM EDT [facility] Bilirubin, Direct 1.17(H) 0.00 - 0.40 mg/dL 10/27/2024 12:52 AM EDT [facility] AST 157(H) 13 - 39 U/L 10/27/2024 12:52 AM EDT [facility] ALT 261(H) 7 - 52 U/L 10/27/2024 12:52 AM EDT [facility] Alkaline Phosphatase 26(L) 36 - 125 U/L 10/27/2024 12:52 AM EDT [facility] Total Protein 3.8(L) 6.4 - 8.9 g/dL 10/27/2024 12:52 AM EDT [facility] Albumin 2.8(L) 3.5 - 5.7 g/dL 10/27/2024 12:52 AM EDT [facility] Bilirubin, Indirect 0.43 0.00 - 1.10 mg/dL 10/27/2024 12:52 AM EDT [facility] Plasma 10/27/2024 12:1 3 AM EDT 10/27/2024 12:29 AM EDT us Kemar Sahni MD LAB BLOOD ORDERABLES Final Result [facility] [address] [place], [place] [id number] [place] [address] * (ABNORMAL) Protime-INR (10/27/2024 12:13 AM EDT) Protime 18.6(H) 12.1 - 15.1 seconds 10/27/2024 12:43 AM EDT [facility] INR 1.5(H) 0.9 - 1.1 10/27/2024 12:43 AM EDT [facility] Comment: RECOMMENDED THERAPEUTIC RANGES USING INR : Stable oral anticoagulant therapy: 2.0 - 3.0 Mechanical prosthetic heart valve: 2.5 - 3.5 Recurrent acute myocardial infarction: 2.5 - 3.5 Plasma 10/27/2024 12:1 3 AM EDT 10/27/2024 12:29 AM EDT us Kemar Sahni MD LAB BLOOD ORDERABLES Final Result [facility] [address] [address], [facility] * (ABNORMAL) CBC (10/27/2024 12:13 AM EDT) WBC 5.0 3.8 - 10.8 10E3/uL 10/27/2024 12:59 AM EDT [facility] RBC 2.70(L) 4.20 - 5.80 10E6/uL 10/27/2024 12:59 AM EDT [facility] Hemoglobin 8.5(L) 13.2 - 17.1 g/dL 10/27/2024 12:59 AM EDT [facility] Hematocrit 23.9(L) 38.5 - 50.0 % 10/27/2024 12:59 AM EDT [facility] MCV 88.5 80.0 - 100.0 fL 10/27/2024 12:59 AM EDT [facility] MCH 31.5 27.0 - 33.0 pg 10/27/2024 12:59 AM EDT [facility] MCHC 35.6 32.0 - 36.0 g/dL 10/27/2024 12:59 AM EDT [facility] RDW 20.6(H) 11.0 - 15.0 % 10/27/2024 12:59 AM EDT [facility] Platelets 35(L) 140 - 400 10E3/uL 10/27/2024 12:59 AM EDT [facility] Comment: CNV Specimen checked for clots. None detected. MPV 7.6 7.5 - 11.5 fL 10/27/2024 12:59 AM EDT [facility] Whole Blood 10/27/2024 12:1 3 AM EDT 10/27/2024 12:29 AM EDT Kemar Sahni MD LAB BLOOD ORDERABLES Final Result [facility] [address] [place], [place] [address] * (ABNORMAL) Renal Function Panel w/EGFR (10/27/2024 12:13 AM EDT) Sodium 141 133 - 146 mmol/L 10/27/2024 12:52 AM EDT [facility] Potassium 3.2(L) 3.5 - 5.3 mmol/L 10/27/2024 12:52 AM EDT [facility] Chloride 109 98 - 110 mmol/L 10/27/2024 12:52 AM EDT [facility] CO2 21 21 - 33 mmol/L 10/27/2024 12:52 AM EDT [facility] Anion Gap 11 3 - 16 mmol/L 10/27/2024 12:52 AM EDT [facility] BUN 64(H) 7 - 25 mg/dL 10/27/2024 12:52 AM EDT [facility] Creatinine 2.58(H) 0.60 - 1.30 mg/dL 10/27/2024 12:52 AM EDT [facility] Glucose 126(H) 70 - 100 mg/dL 10/27/2024 12:52 AM EDT [facility] Calcium 8.9 8.6 - 10.3 mg/dL 10/27/2024 12:52 AM EDT [facility] Phosphorus 5.3(H) 2.1 - 4.7 mg/dL 10/27/2024 12:52 AM EDT [facility] Albumin 2.8(L) 3.5 - 5.7 g/dL 10/27/2024 12:52 AM EDT [facility] Osmolality, Calculated 312(H) 278 - 305 mOsm/kg 10/27/2024 12:52 AM EDT [facility] EGFR 31 10/27/2024 12:52 AM EDT [facility] Comment:As of 2021, the estimated GFR [...] Hospital/ZIP Co de Phone Number [facility] [address] [facility]. [address] * (ABNORMAL) POC Glucose Monitoring Device (10/27/2024 12:08 AM EDT) POC Glucose Monitoring Device 121(H) 70 - 100 mg/dL 10/27/2024 12:08 AM EDT [facility] Blood 10/27/2024 12:0 8 AM EDT 10/27/2024 12:08 AM EDT Semaj Mcnair III, MD POINT OF CARE TEST ORDERABLES Final Result Performing Organization Address City/[facility]/ZIP Co de Phone Number [facility] [address] [facility]. [address] * (ABNORMAL) POC Glucose Monitoring Device (10/26/2024 11:15 PM EDT) POC Glucose Monitoring Device 120(H) 70 - 100 mg/dL 10/26/2024 11:15 PM EDT [facility] Blood 10/26/2024 11:1 5 PM EDT 10/26/2024 11:15 PM EDT Semaj Mcnair III, MD POINT OF CARE TEST ORDERABLES Final Result [facility] [address] [place] [address], [facility] * (ABNORMAL) TEG-Bypass/ECMO/Liver HN (Factor function, Platelet/Fibrin Clot Strength w/Clot Breakdown, Heparinase In All Channels) (10/26/2024 10:36 PM EDT) [facility] Citrated Kaolin Reaction Time (TEGECMOLIVER) 10.0(H) 4.6 - 9.1 minutes 10/26/2024 11:53 PM EDT [facility] Citrated Kaolin W/Heparinase Reaction Time (TEGECMOLIVER) 10.2(H) 4.3 - 8.3 minutes 10/26/2024 11:53 PM EDT [facility] Citrated Kaolin Maximum Amplitude (TEGECMOLIVER) <40.0(L) 52.0 - 69.0 mm 10/26/2024 11:53 PM EDT [facility] Citrated Functional Fibrinogen W/Heparinase Maximum Amplitude(TEGEC MOLIVER) 11.3(L) 15.0 - 34.0 mm 10/26/2024 11:53 PM EDT [facility] Citrated Rapid Teg W/Heparinase Maximum Amplitude (TEGECMOLIVER) 41.8(L) 53.0 - 69.0 mm 10/26/2024 11:53 PM EDT [facility] Citrated Kaolin w/Heparinase Percent Lysis (TEGECMOLIVER) 0.0 0.0 - 3.2 % 10/26/2024 11:53 PM EDT [facility] Whole Blood (Citrate) 10/26/2024 10:36 PM EDT 10/26/2024 10:43 PM EDT Kemar Sahni MD LAB BLOOD ORDERABLES Final Result Performing Organization Address City/[facility]/ZIP Co de Phone Number [facility] [address] [facility]. [address] * (ABNORMAL) POC Glucose Monitoring Device (10/26/2024 10:14 PM EDT) POC Glucose Monitoring Device 124(H) 70 - 100 mg/dL 10/26/2024 11:11 PM EDT [facility] Blood 10/26/2024 10:1 4 PM EDT 10/26/2024 11:11 PM EDT us Semaj Mcnair III, MD POINT OF CARE TEST ORDERABLES Final Result Performing Organization Address [facility] Co de Phone Number [facility] [address] [facility]. [address] * (ABNORMAL) POC Glucose Monitoring Device (10/26/2024 9:16 PM EDT) POC Glucose Monitoring Device 119(H) 70 - 100 mg/dL 10/26/2024 9:18 PM EDT [facility] Blood 10/26/2024 9:16 PM EDT 10/26/2024 9:18 PM EDT us Semaj Mcnair III, MD POINT OF CARE TEST ORDERABLES Final Result Performing Organization Address City/[facility] Co de Phone Number [facility] [address] [facility]. [address] * (ABNORMAL) POC Glucose Monitoring Device (10/26/2024 8:05 PM EDT) POC Glucose Monitoring Device 113(H) 70 - 100 mg/dL 10/26/2024 8:06 PM EDT [facility] Blood 10/26/2024 8:05 PM EDT 10/26/2024 8:06 PM EDT us Semaj Mcnair III, MD POINT OF CARE TEST ORDERABLES Final Result [facility] [address] * (ABNORMAL) POC Glucose Monitoring Device (10/26/2024 7:02 PM EDT) POC Glucose Monitoring Device 111(H) 70 - 100 mg/dL 10/26/2024 7:03 PM EDT [facility] Blood 10/26/2024 7:02 PM EDT 10/26/2024 7:03 PM EDT us Semaj Mcnair III, MD POINT OF CARE TEST ORDERABLES Final Result Performing Organization Address [facility] Co de Phone Number [facility] [address] [facility]. [address] * Transfuse Cryoprecipitate Transfusion Rate: Per dept routine (10/26/2024 6:39 PM EDT) us John Pina MD NURSING TREATMENT ORDERABLES - BLOOD ADMIN Final Result Performing Organization Address [facility] Co de Phone Number EXTERNAL * Transfuse Cryoprecipitate Transfusion Rate: Per dept routine, 1 Units (10/26/2024 6:39 PM EDT) us John Pina MD NURSING TREATMENT ORDERABLES - BLOOD ADMIN Final Result Performing Organization Address [facility] Co de Phone Number EXTERNAL * (ABNORMAL) POC Glucose Monitoring Device (10/26/2024 6:33 PM EDT) POC Glucose Monitoring Device 110(H) 70 - 100 mg/dL 10/26/2024 6:34 PM EDT [facility] Blood 10/26/2024 6:33 PM EDT 10/26/2024 6:34 PM EDT us Semaj Mcnair III, MD POINT OF CARE TEST ORDERABLES Final Result Performing Organization Address [facility] Co de Phone Number [facility] [address] * Transfuse Cryoprecipitate Transfusion Rate: Per dept routine (10/26/2024 6:22 PM EDT) John Pina MD NURSING TREATMENT ORDERABLES - BLOOD ADMIN Final Result Performing Organization Address [facility] Co de Phone Number EXTERNAL * Transfuse Cryoprecipitate Transfusion Rate: Per dept routine, 1 Units (10/26/2024 6:22 PM EDT) John Pina MD NURSING TREATMENT ORDERABLES - BLOOD ADMIN Final Result Performing Organization Address City/[facility] Co de Phone Number EXTERNAL * (ABNORMAL) POC Glucose Monitoring Device (10/26/2024 6:17 PM EDT) POC Glucose Monitoring Device 104(H) 70 - 100 mg/dL 10/26/2024 6:18 PM EDT [facility] Blood 10/26/2024 6:1 7 PM EDT 10/26/2024 6:18 PM EDT Semaj Mcnair III, MD POINT OF CARE TEST ORDERABLES Final Result Performing Organization Address [facility] de Phone Number [facility] [address] * (ABNORMAL) POC Glucose Monitoring Device (10/26/2024 4:58 PM EDT) POC Glucose Monitoring Device 115(H) 70 - 100 mg/dL 10/26/2024 4:59 PM EDT [facility] Blood 10/26/2024 4:58 PM EDT 10/26/2024 4:58 PM EDT Semaj Mcnair III, MD POINT OF CARE TEST ORDERABLES Final Result Performing Organization Address [facility] Co de Phone Number [facility] [address] * (ABNORMAL) Calcium Free, Serum (10/26/2024 4:42 PM EDT) Free Calcium, Ser 5.67(H) 4.40 - 5.40 mg/dL 10/26/2024 4:55 PM EDT [facility] Comment:Free calcium levels vary inversely with pH by approximately 5% for each 0.1 unit of pH change. Assay results have been normalized to pH = 7.40. Serum 10/26/2024 4:42 PM EDT 10/26/2024 4:47 PM EDT Narrative [facility] - 10/26/2024 4:55 PM EDT This test has been developed and its performance characteristics determined by [facility] which is certified under the [...] ORDERABLES Final Resu lt Performing Organization Address [facility]/ZIP Co de Phone Number [address] * Repeat Crossmatch (Recipient Sample) (10/26/2024 4:42 PM EDT) Repeat Cx - Recipient The request and specimen(s) for this test have been received and transported to the [facility] at [address] [place] [address]. The [facility] will report results directly to the client. 10/26/2024 4:49 PM EDT [facility] Whole Blood 10/26/2024 4:42 PM EDT 10/26/2024 4:49 PM EDT Narrative [facility] - 10/26/2024 4:49 PM EDT To be sent to [facility] for Donor UNOS#[id number] cross match with Blair Gilbert Sveta Judge MD LAB BLOOD ORDERABLES Final Resu lt Performing Organization Address City/[facility]/ZIP Co de Phone Number [facility] [address] * (ABNORMAL) Lactic Acid (10/26/2024 4:42 PM EDT) Lactate 0.3(L) 0.5 - 2.2 mmol/L 10/26/2024 5:19 PM EDT [facility] Plasma 10/26/2024 4:42 PM EDT 10/26/2024 4:47 PM EDT Kemar Sahni MD LAB BLOOD ORDERABLES Final Result Performing Organization Address [facility]/ZIP Co de Phone Number [facility] [address] [place] [address]. [address] * Magnesium (10/26/2024 4:42 PM EDT) Pathologist [facility] Magnesium 2.0 1.5 - 2.5 mg/dL 10/26/2024 5:24 PM EDT [facility] Plasma 10/26/2024 4:42 PM EDT 10/26/2024 4:47 PM EDT Kemar Sahni MD LAB BLOOD ORDERABLES Final Result Performing Organization Address [facility] Co de Phone Number [facility] [address] [place] [address]. [address] * (ABNORMAL) Hepatic Function Panel (10/26/2024 4:42 PM EDT) Total Bilirubin 2.3(H) 0.0 - 1.5 mg/dL 10/26/2024 5:24 PM EDT [facility] Bilirubin, Direct 1.85(H) 0.00 - 0.40 mg/dL 10/26/2024 5:24 PM EDT [facility] AST 374(H) 13 - 39 U/L 10/26/2024 5:24 PM EDT [facility] ALT 458(H) 7 - 52 U/L 10/26/2024 5:24 PM EDT [facility] Alkaline Phosphatase 39 36 - 125 U/L 10/26/2024 5:24 PM EDT [facility] Total Protein 3.8(L) 6.4 - 8.9 g/dL 10/26/2024 5:24 PM EDT [facility] Albumin 3.0(L) 3.5 - 5.7 g/dL 10/26/2024 5:24 PM EDT [facility] Bilirubin, Indirect 0.45 0.00 - 1.10 mg/dL 10/26/2024 5:24 PM EDT [facility] Plasma 10/26/2024 4:42 PM EDT 10/26/2024 4:47 PM EDT Kemar Sahni MD LAB BLOOD ORDERABLES Final Result Performing Organization Address City/[facility] Co de Phone Number [facility] [address] * (ABNORMAL) Protime-INR (10/26/2024 4:42 PM EDT) Protime 20.3(H) 12.1 - 15.1 seconds 10/26/2024 5:12 PM EDT [facility] INR 1.7(H) 0.9 - 1.1 10/26/2024 5:12 PM EDT [facility] Comment: RECOMMENDED THERAPEUTIC RANGES USING INR : Stable oral anticoagulant therapy: 2.0 - 3.0 Mechanical prosthetic heart valve: 2.5 - 3.5 Recurrent acute myocardial infarction: 2.5 - 3.5 Plasma 10/26/2024 4:42 PM EDT 10/26/2024 4:47 PM EDT Kemar Sahni MD LAB BLOOD ORDERABLES Final Result [facility] [address] * (ABNORMAL) CBC (10/26/2024 4:42 PM EDT) WBC 10.0 3.8 - 10.8 10E3/uL 10/26/2024 5:00 PM EDT [facility] RBC 3.44(L) 4.20 - 5.80 10E6/uL 10/26/2024 5:00 PM EDT [facility] Hemoglobin 10.5(L) 13.2 - 17.1 g/dL 10/26/2024 5:00 PM EDT [facility] Hematocrit 30.2(L) 38.5 - 50.0 % 10/26/2024 5:00 PM EDT [facility] MCV 87.7 80.0 - 100.0 fL 10/26/2024 5:00 PM EDT [facility] MCH 30.6 27.0 - 33.0 pg 10/26/2024 5:00 PM EDT [facility] MCHC 34.8 32.0 - 36.0 g/dL 10/26/2024 5:00 PM EDT [facility] RDW 20.1(H) 11.0 - 15.0 % 10/26/2024 5:00 PM EDT [facility] Platelets 48(L) 140 - 400 10E3/uL 10/26/2024 5:00 PM EDT [facility] Comment:Specimen checked for clots. None detected. MPV 7.9 7.5 - 11.5 fL 10/26/2024 5:00 PM EDT [facility] Whole Blood 10/26/2024 4:42 PM EDT 10/26/2024 4:47 PM EDT us Kemar Sahni MD LAB BLOOD ORDERABLES Final Result [facility] [address] [id number] * (ABNORMAL) Renal Function Panel w/EGFR (10/26/2024 4:42 PM EDT) Sodium 142 133 - 146 mmol/L 10/26/2024 5:24 PM EDT [facility] Potassium 3.3(L) 3.5 - 5.3 mmol/L 10/26/2024 5:24 PM EDT [facility] Chloride 109 98 - 110 mmol/L 10/26/2024 5:24 PM EDT [facility] CO2 23 21 - 33 mmol/L 10/26/2024 5:24 PM EDT [facility] Anion Gap 10 3 - 16 mmol/L 10/26/2024 5:24 PM EDT [facility] BUN 63(H) 7 - 25 mg/dL 10/26/2024 5:24 PM EDT [facility] Creatinine 2.85(H) 0.60 - 1.30 mg/dL 10/26/2024 5:24 PM EDT [facility] Glucose 127(H) 70 - 100 mg/dL 10/26/2024 5:24 PM EDT [facility] Calcium 8.9 8.6 - 10.3 mg/dL 10/26/2024 5:24 PM EDT [facility] Phosphorus 4.4 2.1 - 4.7 mg/dL 10/26/2024 5:24 PM EDT [facility] Albumin 3.0(L) 3.5 - 5.7 g/dL 10/26/2024 5:24 PM EDT [facility] Osmolality, Calculated 314(H) 278 - 305 mOsm/kg 10/26/2024 5:24 PM EDT [facility] EGFR 28 10/26/2024 5:24 PM EDT [facility] Comment:As of 2021, the estimated GFR [...] LAB BLOOD ORDERABLES Final Result [facility] [address] * (ABNORMAL) POC Glucose Monitoring Device (10/26/2024 3:54 PM EDT) POC Glucose Monitoring Device 126(H) 70 - 100 mg/dL 10/26/2024 3:55 PM EDT [facility] Blood 10/26/2024 3:54 PM EDT 10/26/2024 3:55 PM EDT Semaj Mcnair III, MD POINT OF CARE TEST ORDERABLES Final Result [facility] [address] * (ABNORMAL) POC Glucose Monitoring Device (10/26/2024 3:06 PM EDT) POC Glucose Monitoring Device 144(H) 70 - 100 mg/dL 10/26/2024 3:14 PM EDT [facility] Blood 10/26/2024 3:06 PM EDT 10/26/2024 3:13 PM EDT Semaj Mcnair III, MD POINT OF CARE TEST ORDERABLES Final Result [facility] [address] [facility]. [address] * (ABNORMAL) TEG-Bypass/ECMO/Liver HN (Factor function, Platelet/Fibrin Clot Strength w/Clot Breakdown, Heparinase In All Channels) (10/26/2024 3:03 PM EDT) Citrated Kaolin Reaction Time (TEGECMOLIVER) 8.2 4.6 - 9.1 minutes 10/26/2024 4:43 PM EDT [facility] Citrated Kaolin W/Heparinase Reaction Time (TEGECMOLIVER) 8.2 4.3 - 8.3 minutes 10/26/2024 4:43 PM EDT [facility] Citrated Kaolin Maximum Amplitude (TEGECMOLIVER) 41.7(L) 52.0 - 69.0 mm 10/26/2024 4:43 PM EDT [facility] Citrated Functional Fibrinogen W/Heparinase Maximum Amplitude(TEGEC MOLIVER) 11.4(L) 15.0 - 34.0 mm 10/26/2024 4:43 PM EDT [facility] Citrated Rapid Teg W/Heparinase Maximum Amplitude (TEGECMOLIVER) 38.6(L) 53.0 - 69.0 mm 10/26/2024 4:43 PM EDT [facility] Citrated Kaolin w/Heparinase Percent Lysis (TEGECMOLIVER) 0.0 0.0 - 3.2 % 10/26/2024 4:43 PM EDT [facility] Whole Blood (Citrate) 10/26/2024 3:03 PM EDT 10/26/2024 3:10 PM EDT Jani Mooney MD LAB BLOOD ORDERABLES Final Resul t Performing Organization Address City/[facility] Co de Phone Number [facility] [address] * ECG 12 lead (MUSE) (10/26/2024 2:19 PM EDT) 10/26/2024 2:19 PM EDT Narrative MUSE - 10/27/2024 10:09 AM EDT Ventricular Rate: 105 BPM Atrial Rate: 105 BPM P-R Interval: 128 ms QRS Duration: 94 ms QT: 474 ms QTc: 626 ms R Palco: -37 degrees T Palco: 35 degrees Diagnosis Line: Critical Test Result: Long QTc ^ SINUS TACHYCARDIA ^ LEFT AXIS DEVIATION, LEFT ANTERIOR HEMIBLOCK ^ PROLONGED QT ^ ABNORMAL ECG ^ ^ Confirmed by MD HA, [facility] ([id number]) on 10/27/2024 10:09:25 AM Quinten Best MD ECG ORDERABLES Final Result Performing Organization Address City/[facility] Co de Phone Number MUSE * (ABNORMAL) POC Glucose Monitoring Device (10/26/2024 2:00 PM EDT) POC Glucose Monitoring Device 183(H) 70 - 100 mg/dL 10/26/2024 2:01 PM EDT [facility] Blood 10/26/2024 2:00 PM EDT 10/26/2024 2:01 PM EDT us Semaj Mcnair III, MD POINT OF CARE TEST ORDERABLES Final Result Performing Organization Address [facility] Co de Phone Number [facility] [address] [facility]. [address] * (ABNORMAL) POC Glucose Monitoring Device (10/26/2024 1:05 PM EDT) POC Glucose Monitoring Device 212(H) 70 - 100 mg/dL 10/26/2024 1:06 PM EDT [facility] Blood 10/26/2024 1:05 PM EDT 10/26/2024 1:06 PM EDT Semaj Mcnair III, MD POINT OF CARE TEST ORDERABLES Final Result Performing Organization Address [facility] Co de Phone Number [facility] [address] [facility]. [address] * Transfuse Cryoprecipitate Has consent been [...] Result Performing Organization Address City/[facility] Co de Phone Number EXTERNAL * (ABNORMAL) POC Glucose Monitoring Device (10/26/2024 12:06 PM EDT) POC Glucose Monitoring Device 226(H) 70 - 100 mg/dL 10/26/2024 12:07 PM EDT [facility] Blood 10/26/2024 12:0 6 PM EDT 10/26/2024 12:07 PM EDT Semaj Mcnair III, MD POINT OF CARE TEST ORDERABLES Final Result Performing Organization Address [facility] Co de Phone Number [facility] [address] [facility]. [address] * Transfuse Cryoprecipitate Transfusion Rate: Per dept routine (10/26/2024 12:01 PM EDT) John Pina MD NURSING TREATMENT ORDERABLES - BLOOD ADMIN Final Result Performing Organization Address [facility] Co de Phone Number EXTERNAL * Transfuse Cryoprecipitate Transfusion Rate: Per dept routine, 1 Units (10/26/2024 12:01 PM EDT) John Pina MD NURSING TREATMENT ORDERABLES - BLOOD ADMIN Final Result Performing Organization Address [facility] Co de Phone Number EXTERNAL * Lactic Acid (10/26/2024 10:48 AM EDT) Lactate 1.2 0.5 - 2.2 mmol/L 10/26/2024 11:27 AM EDT [facility] Plasma 10/26/2024 10:4 8 AM EDT 10/26/2024 10:53 AM EDT Kemar Sahni MD LAB BLOOD ORDERABLES Final Result Performing Organization Address [facility] Co de Phone Number [facility] [address] [facility]. [address] * Magnesium (10/26/2024 10:48 AM EDT) Magnesium 2.0 1.5 - 2.5 mg/dL 10/26/2024 11:26 AM EDT [facility] Plasma 10/26/2024 10:4 8 AM EDT 10/26/2024 10:53 AM EDT Kemar Sahni MD LAB BLOOD ORDERABLES Final Result [facility] [address] [place] [address], [facility] * (ABNORMAL) Hepatic Function Panel (10/26/2024 10:48 AM EDT) Total Bilirubin 5.9(H) 0.0 - 1.5 mg/dL 10/26/2024 11:26 AM EDT [facility] Bilirubin, Direct 4.74(H) 0.00 - 0.40 mg/dL 10/26/2024 11:26 AM EDT [facility] AST 872(H) 13 - 39 U/L 10/26/2024 11:26 AM EDT [facility] ALT 736(H) 7 - 52 U/L 10/26/2024 11:26 AM EDT [facility] Alkaline Phosphatase 56 36 - 125 U/L 10/26/2024 11:26 AM EDT [facility] Total Protein 3.5(L) 6.4 - 8.9 g/dL 10/26/2024 11:26 AM EDT [facility] Albumin 2.5(L) 3.5 - 5.7 g/dL 10/26/2024 11:26 AM EDT [facility] Bilirubin, Indirect 1.16(H) 0.00 - 1.10 mg/dL 10/26/2024 11:26 AM EDT [facility] Plasma 10/26/2024 10:4 8 AM EDT 10/26/2024 10:53 AM EDT Kemar Sahni MD LAB BLOOD ORDERABLES Final Result [facility] [address] [place] [address], [facility] * (ABNORMAL) Protime-INR (10/26/2024 10:48 AM EDT) Protime 23.0(H) 12.1 - 15.1 seconds 10/26/2024 11:26 AM EDT [facility] INR 2.0(H) 0.9 - 1.1 10/26/2024 11:26 AM EDT [facility] LAB Comment: RECOMMENDED THERAPEUTIC RANGES USING INR : Stable oral anticoagulant therapy: 2.0 - 3.0 Mechanical prosthetic heart valve: 2.5 - 3.5 Recurrent acute myocardial infarction: 2.5 - 3.5 Plasma 10/26/2024 10:4 8 AM EDT 10/26/2024 10:53 AM EDT Kemar Sahni MD LAB BLOOD ORDERABLES Final Result [facility] [address] [place] [address], [facility] * (ABNORMAL) CBC (10/26/2024 10:48 AM EDT) WBC 17.3(H) 3.8 - 10.8 10E3/uL 10/26/2024 11:14 AM EDT [facility] RBC 4.22 4.20 - 5.80 10E6/uL 10/26/2024 11:14 AM EDT [facility] Hemoglobin 12.8(L) 13.2 - 17.1 g/dL 10/26/2024 11:14 AM EDT [facility] Hematocrit 37.2(L) 38.5 - 50.0 % 10/26/2024 11:14 AM EDT [facility] MCV 88.3 80.0 - 100.0 fL 10/26/2024 11:14 AM EDT [facility] MCH 30.4 27.0 - 33.0 pg 10/26/2024 11:14 AM EDT [facility] MCHC 34.4 32.0 - 36.0 g/dL 10/26/2024 11:14 AM EDT [facility] RDW 20.8(H) 11.0 - 15.0 % 10/26/2024 11:14 AM EDT [facility] Platelets 109(L) 140 - 400 10E3/uL 10/26/2024 11:14 AM EDT [facility] MPV 7.5 7.5 - 11.5 fL 10/26/2024 11:14 AM EDT [facility] Whole Blood 10/26/2024 10:4 8 AM EDT 10/26/2024 10:53 AM EDT Kemar Sahni MD LAB BLOOD ORDERABLES Final Result [facility] [address] [place] [address], [facility] * (ABNORMAL) Blood gas, arterial (10/26/2024 10:48 AM EDT) O2 Sat, Arterial 97 10/26/2024 10:54 AM EDT [facility] FIO2 35% 10/26/2024 10:54 AM EDT [facility] pH, Arterial 7.37 7.35 - 7.45 10/26/2024 10:54 AM EDT [facility] pCO2, Arterial 36 35 - 45 mm Hg 10/26/2024 10:54 AM EDT [facility] pO2, Arterial 91 80 - 100 mm Hg 10/26/2024 10:54 AM EDT [facility] HCO3, Arterial 22 22 - 26 mmol/L 10/26/2024 10:54 AM EDT [facility] CO2 Content,Arteri al 22(L) 23 - 27 mmol/L 10/26/2024 10:54 AM EDT [facility] Base Excess, Arterial -3.9(L) -2.0 - 3.0 mmol/L 10/26/2024 10:54 AM EDT [facility] %HBO2, Arterial 94.8(L) 95.0 - 98.0 % 10/26/2024 10:54 AM EDT [facility] Carboxyhemoglo bin, Arterial 1.9 % 10/26/2024 10:54 AM EDT [facility] Comment: CARBOXYHEMOGLOBIN (CO) REFERENCE RANGES: Non-Smokers: <2 % Smokers: <8 % TOXIC: >20 % Methemoglobin, Arterial 0.7 0.0 - 1.5 % 10/26/2024 10:54 AM EDT [facility] Reduced hemoglobin, Arterial 2.5 0.0 - 5.0 % 10/26/2024 10:54 AM EDT [facility] Blood, Arterial 10/26/2024 1 0:48 AM EDT 10/26/2024 10:52 AM EDT us Shay Sifuentes MD LAB BLOOD ORDERABLES Final Resu lt [facility] [address] [place] [address], [facility] * (ABNORMAL) Renal Function Panel w/EGFR (10/26/2024 10:48 AM EDT) Sodium 139 133 - 146 mmol/L 10/26/2024 11:26 AM EDT [facility] Potassium 2.9(LL) 3.5 - 5.3 mmol/L 10/26/2024 11:26 AM EDT [facility] Comment:K CRITICAL VALUE WAS PREVIOUSLY CALLED Chloride 107 98 - 110 mmol/L 10/26/2024 11:26 AM EDT [facility] CO2 22 21 - 33 mmol/L 10/26/2024 11:26 AM EDT [facility] Anion Gap 10 3 - 16 mmol/L 10/26/2024 11:26 AM EDT [facility] BUN 61(H) 7 - 25 mg/dL 10/26/2024 11:26 AM EDT [facility] Creatinine 2.78(H) 0.60 - 1.30 mg/dL 10/26/2024 11:26 AM EDT [facility] Glucose 253(H) 70 - 100 mg/dL 10/26/2024 11:26 AM EDT [facility] Calcium 8.8 8.6 - 10.3 mg/dL 10/26/2024 11:26 AM EDT [facility] Phosphorus 4.1 2.1 - 4.7 mg/dL 10/26/2024 11:26 AM EDT [facility] Albumin 2.5(L) 3.5 - 5.7 g/dL 10/26/2024 11:26 AM EDT [facility] Osmolality, Calculated 314(H) 278 - 305 mOsm/kg 10/26/2024 11:26 AM EDT [facility] EGFR 28 10/26/2024 11:26 AM EDT [facility] Comment:As of 2021, the estimated GFR [...] BLOOD ORDERABLES Final Result Performing Organization Address [facility]/ZIP Co de Phone Number [facility] [address] [place] [address]. [address] * (ABNORMAL) POC Glucose Monitoring Device (10/26/2024 10:47 AM EDT) POC Glucose Monitoring Device 234(H) 70 - 100 mg/dL 10/26/2024 10:48 AM EDT [facility] Blood 10/26/2024 10:4 7 AM EDT 10/26/2024 10:48 AM EDT Semaj Mcnair III, MD POINT OF CARE TEST ORDERABLES Final Result Performing Organization Address [facility]/ZIP Co de Phone Number [facility] [address] [facility]. [address] * CARISA Rhythm Strip - Scan (10/26/2024 10:45 AM EDT) us Scanning [employer] SCAN DOCS - NO RESULTS Final Res ult * (ABNORMAL) POC Glucose Monitoring Device (10/26/2024 10:08 AM EDT) POC Glucose Monitoring Device 235(H) 70 - 100 mg/dL 10/26/2024 10:09 AM EDT [facility] Blood 10/26/2024 10:0 8 AM EDT 10/26/2024 10:09 AM EDT Semaj Mcnair III, MD POINT OF CARE TEST ORDERABLES Final Result Performing Organization Address [facility] Co de Phone Number [facility] [address] [facility]. [address] * (ABNORMAL) POC Glucose Monitoring Device (10/26/2024 8:57 AM EDT) POC Glucose Monitoring Device 232(H) 70 - 100 mg/dL 10/26/2024 8:59 AM EDT [facility] Blood 10/26/2024 8:57 AM EDT 10/26/2024 8:58 AM EDT Semaj Mcnair III, MD POINT OF CARE TEST ORDERABLES Final Result Performing Organization Address [facility] de Phone Number [facility] [address] [facility]. [address] * ECG 12 lead (MUSE) (10/26/2024 8:16 AM EDT) 10/26/2024 8:16 AM EDT Narrative MUSE - 10/27/2024 10:09 AM EDT Ventricular Rate: 112 BPM QRS Duration: 96 ms QT: 452 ms QTc: 616 ms R Palco: -41 degrees T Palco: 40 degrees Diagnosis Line: Critical Test Result: Long QTc ^ SINUS TACHYCARDIA OCCASIONAL PREMATURE VENTRICULAR COMPLEXES ^ LEFT AXIS DEVIATION, LEFT ANTERIOR HEMIBLOCK ^ PROLONGED QT ^ ABNORMAL ECG ^ ^ Confirmed by MD HA, ERICK ([facility]) on 10/27/2024 10:09:18 AM Shay Sifuentes MD ECG ORDERABLES Final Result Performing Organization Address City/[facility] Co de Phone Number MUSE * X-ray [...] - 100 mg/dL 10/26/2024 8:01 AM EDT [facility] Blood 10/26/2024 7:59 AM EDT 10/26/2024 8:00 AM EDT us Semaj Mcnair III, MD POINT OF CARE TEST ORDERABLES Final Result Performing Organization Address [facility]/ZIP Co de Phone Number [facility] [address] [place], [place] [address] * (ABNORMAL) TEG-Bypass/ECMO/Liver HN (Factor function, Platelet/Fibrin Clot Strength w/Clot Breakdown, Heparinase In All Channels) (10/26/2024 7:59 AM EDT) [facility] Citrated Kaolin Reaction Time (TEGECMOLIVER) 8.2 4.6 - 9.1 minutes 10/26/2024 10:36 AM EDT [facility] Citrated Kaolin W/Heparinase Reaction Time (TEGECMOLIVER) 8.1 4.3 - 8.3 minutes 10/26/2024 10:36 AM EDT [facility] Citrated Kaolin Maximum Amplitude (TEGECMOLIVER) 46.8(L) 52.0 - 69.0 mm 10/26/2024 10:36 AM EDT [facility] Citrated Functional Fibrinogen W/Heparinase Maximum Amplitude(TEGEC MOLIVER) 10.5(L) 15.0 - 34.0 mm 10/26/2024 10:36 AM EDT [facility] Citrated Rapid Teg W/Heparinase Maximum Amplitude (TEGECMOLIVER) 45.5(L) 53.0 - 69.0 mm 10/26/2024 10:36 AM EDT [facility] Citrated Kaolin w/Heparinase Percent Lysis (TEGECMOLIVER) 0.0 0.0 - 3.2 % 10/26/2024 10:36 AM EDT [facility] Whole Blood (Citrate) 10/26/2024 7:59 AM EDT 10/26/2024 8:05 AM EDT us Shay Sifuentes MD LAB BLOOD ORDERABLES Final Resu lt Performing Organization Address City/[facility]/ZIP Co de Phone Number [facility] [address] [facility]. [address] * (ABNORMAL) POC Glucose Monitoring Device (10/26/2024 6:12 AM EDT) POC Glucose Monitoring Device 196(H) 70 - 100 mg/dL 10/26/2024 6:13 AM EDT [facility] Blood 10/26/2024 6:12 AM EDT 10/26/2024 6:13 AM EDT Semaj Mcnair III, MD POINT OF CARE TEST ORDERABLES Final Result Performing Organization Address [facility] Co de Phone Number [facility] [address] [facility]. [address] * Lactic Acid (10/26/2024 6:10 AM EDT) Lactate 1.2 0.5 - 2.2 mmol/L 10/26/2024 6:39 AM EDT [facility] Plasma 10/26/2024 6:10 AM EDT 10/26/2024 6:19 AM EDT Sveta Judge MD LAB BLOOD ORDERABLES Final Resu lt Performing Organization Address [facility] Co de Phone Number [facility] [address] [facility]. [address] * (ABNORMAL) Fibrinogen (10/26/2024 6:10 AM EDT) Fibrinogen 160(L) 218 - 406 mg/dL 10/26/2024 6:41 AM EDT [facility] Plasma 10/26/2024 6:10 AM EDT 10/26/2024 6:26 AM EDT us Sveta Judge MD LAB BLOOD ORDERABLES Final Resu lt Performing Organization Address [facility] Co de Phone Number [facility] [address] [facility]. [address] * (ABNORMAL) Protime-INR (10/26/2024 6:10 AM EDT) Protime 25.0(H) 12.1 - 15.1 seconds 10/26/2024 6:41 AM EDT [facility] INR 2.2(H) 0.9 - 1.1 10/26/2024 6:41 AM EDT [facility] Comment: RECOMMENDED THERAPEUTIC RANGES USING INR : Stable oral anticoagulant therapy: 2.0 - 3.0 Mechanical prosthetic heart valve: 2.5 - 3.5 Recurrent acute myocardial infarction: 2.5 - 3.5 Plasma 10/26/2024 6:10 AM EDT 10/26/2024 6:26 AM EDT us Sveta Judge MD LAB BLOOD ORDERABLES Final Resu lt [facility] [address] * (ABNORMAL) Blood gas, arterial (10/26/2024 6:10 AM EDT) O2 Sat, Arterial 98 10/26/2024 6:23 AM EDT [facility] FIO2 60 10/26/2024 6:23 AM EDT [facility] pH, Arterial 7.27(L) 7.35 - 7.45 10/26/2024 6:23 AM EDT [facility] pCO2, Arterial 47(H) 35 - 45 mm Hg 10/26/2024 6:23 AM EDT [facility] pO2, Arterial 127(H) 80 - 100 mm Hg 10/26/2024 6:23 AM EDT [facility] HCO3, Arterial 21(L) 22 - 26 mmol/L 10/26/2024 6:23 AM EDT [facility] CO2 Content,Arteri al 23 23 - 27 mmol/L 10/26/2024 6:23 AM EDT [facility] Base Excess, Arterial -5.4(L) -2.0 - 3.0 mmol/L 10/26/2024 6:23 AM EDT [facility] %HBO2, Arterial 94.6(L) 95.0 - 98.0 % 10/26/2024 6:23 AM EDT [facility] Carboxyhemoglo bin, Arterial 2.0 % 10/26/2024 6:23 AM EDT [facility] Comment: CARBOXYHEMOGLOBIN (CO) REFERENCE RANGES: Non-Smokers: <2 % Smokers: <8 % TOXIC: >20 % Methemoglobin, Arterial 1.6(H) 0.0 - 1.5 % 10/26/2024 6:23 AM EDT [facility] Reduced hemoglobin, Arterial 1.8 0.0 - 5.0 % 10/26/2024 6:23 AM EDT [facility] Blood, Arterial 10/26/2024 6 :10 AM EDT 10/26/2024 6:20 AM EDT Sveta Judge MD LAB BLOOD ORDERABLES Final Resu lt Performing Organization Address [facility] Co de Phone Number [facility] [address] [facility]. [address] * Magnesium (10/26/2024 6:10 AM EDT) Magnesium 1.5 1.5 - 2.5 mg/dL 10/26/2024 7:09 AM EDT [facility] Plasma 10/26/2024 6:10 AM EDT 10/26/2024 6:23 AM EDT Sveta Judge MD LAB BLOOD ORDERABLES Final Resu lt Performing Organization Address City/[facility] Co de Phone Number [facility] [address] [facility]. [address] * (ABNORMAL) Hepatic Function Panel (10/26/2024 6:10 AM EDT) Total Bilirubin 6.2(H) 0.0 - 1.5 mg/dL 10/26/2024 7:11 AM EDT [facility] Bilirubin, Direct 5.26(H) 0.00 - 0.40 mg/dL 10/26/2024 7:11 AM EDT [facility] AST 1,071(H) 13 - 39 U/L 10/26/2024 7:11 AM EDT [facility] ALT 805(H) 7 - 52 U/L 10/26/2024 7:11 AM EDT [facility] Alkaline Phosphatase 55 36 - 125 U/L 10/26/2024 7:11 AM EDT [facility] Total Protein <3.0(L) 6.4 - 8.9 g/dL 10/26/2024 7:11 AM EDT [facility] Albumin 1.9(L) 3.5 - 5.7 g/dL 10/26/2024 7:11 AM EDT [facility] Bilirubin, Indirect 0.94 0.00 - 1.10 mg/dL 10/26/2024 7:11 AM EDT [facility] Plasma 10/26/2024 6:10 AM EDT 10/26/2024 6:23 AM EDT Sveta Judge MD LAB BLOOD ORDERABLES Final Resu lt [facility] [address] * (ABNORMAL) Renal Function Panel w/EGFR (10/26/2024 6:10 AM EDT) Sodium 141 133 - 146 mmol/L 10/26/2024 7:09 AM EDT [facility] Potassium 2.8(LL) 3.5 - 5.3 mmol/L 10/26/2024 7:09 AM EDT [facility] Comment:Critical value previ ously called. Chloride 106 98 - 110 mmol/L 10/26/2024 7:09 AM EDT [facility] CO2 25 21 - 33 mmol/L 10/26/2024 7:09 AM EDT [facility] Anion Gap 10 3 - 16 mmol/L 10/26/2024 7:09 AM EDT [facility] BUN 57(H) 7 - 25 mg/dL 10/26/2024 7:09 AM EDT [facility] Creatinine 2.70(H) 0.60 - 1.30 mg/dL 10/26/2024 7:09 AM EDT [facility] Glucose 210(H) 70 - 100 mg/dL 10/26/2024 7:09 AM EDT [facility] Calcium 8.7 8.6 - 10.3 mg/dL 10/26/2024 7:09 AM EDT [facility] Phosphorus 5.4(H) 2.1 - 4.7 mg/dL 10/26/2024 7:09 AM EDT [facility] Albumin 1.9(L) 3.5 - 5.7 g/dL 10/26/2024 7:11 AM EDT [facility] Osmolality, Calculated 314(H) 278 - 305 mOsm/kg 10/26/2024 7:09 AM EDT [facility] EGFR 29 10/26/2024 7:09 AM EDT [facility] Comment:As of 2021, the estimated GFR [...] BLOOD ORDERABLES Final Resu lt [facility] [address] [place] [address], [facility] * (ABNORMAL) CBC (10/26/2024 6:10 AM EDT) WBC 14.8(H) 3.8 - 10.8 10E3/uL 10/26/2024 6:46 AM EDT [facility] RBC 4.04(L) 4.20 - 5.80 10E6/uL 10/26/2024 6:46 AM EDT [facility] Hemoglobin 12.7(L) 13.2 - 17.1 g/dL 10/26/2024 6:46 AM EDT [facility] Hematocrit 35.9(L) 38.5 - 50.0 % 10/26/2024 6:46 AM EDT [facility] MCV 89.0 80.0 - 100.0 fL 10/26/2024 6:46 AM EDT [facility] MCH 31.3 27.0 - 33.0 pg 10/26/2024 6:46 AM EDT [facility] MCHC 35.2 32.0 - 36.0 g/dL 10/26/2024 6:46 AM EDT [facility] RDW 19.7(H) 11.0 - 15.0 % 10/26/2024 6:46 AM EDT [facility] Platelets 107(L) 140 - 400 10E3/uL 10/26/2024 6:46 AM EDT [facility] MPV 7.4(L) 7.5 - 11.5 fL 10/26/2024 6:46 AM EDT [facility] Whole Blood 10/26/2024 6:10 AM EDT 10/26/2024 6:26 AM EDT us Sveta Judge MD LAB BLOOD ORDERABLES Final Resu lt [facility] [address] [place] [id number] * (ABNORMAL) POC INR (10/26/2024 5:16 AM EDT) Prothrombin Time INR, POC 2.4(H) 0.8 - 1.4 10/27/2024 6:51 AM EDT [facility] Comment: Test results may vary using different testing platforms. Serial result monitoring should be performed using the same methodology. RECOMMENDED THERAPEUTIC RANGES USING INR : Stable oral anticoagulant therapy: 2.0 - 3.0 Mechanical prosthetic heart valve: 2.5 - 3.5 Recurrent acute myocardial infarction: 2.5 - 3.5 Blood 10/26/2024 5:16 AM EDT 10/27/2024 6:51 AM EDT us Semaj Mcnair III, MD POINT OF CARE TEST ORDERABLES Final Result [facility] [address] * POC Sample Type (10/26/2024 5:14 AM EDT) POC Sample Type Arterial 10/26/2024 5:31 AM EDT [facility] Blood, Arterial 10/26/2024 5 :14 AM EDT 10/26/2024 5:31 AM EDT Semaj Mcnair III, MD POINT OF CARE TEST ORDERABLES Final Result Performing Organization Address City/[facility]/ZIP Co de Phone Number [facility] [address] [facility]. [address] * POC Anion Gap (10/26/2024 5:14 AM EDT) POC Anion Gap, Arterial 12 3 - 16 mmol/L 10/26/2024 5:31 AM EDT [facility] Blood, Arterial 10/26/2024 5 :14 AM EDT 10/26/2024 5:31 AM EDT Semaj Mcnair III, MD POINT OF CARE TEST ORDERABLES Final Result [facility] [address] * POC Chloride (10/26/2024 5:14 AM EDT) POC Chloride 104 98 - 110 mmol/L 10/26/2024 5:31 AM EDT [facility] Blood, Arterial 10/26/2024 5 :14 AM EDT 10/26/2024 5:31 AM EDT Semaj Mcnair III, MD POINT OF CARE TEST ORDERABLES Final Result Performing Organization Address City/[facility] Co de Phone Number [facility] [address] * (ABNORMAL) POC Hemoglobin (10/26/2024 5:14 AM EDT) POC Hemoglobin 9.5(L) 14.0 - 18.0 g/dL 10/26/2024 5:31 AM EDT [facility] Blood, Arterial 10/26/2024 5 :14 AM EDT 10/26/2024 5:31 AM EDT Semaj Mcnair III, MD POINT OF CARE TEST ORDERABLES Final Result Performing Organization Address [facility] Co de Phone Number [facility] [address] [facility]. [address] * (ABNORMAL) POC hematocrit (10/26/2024 5:14 AM EDT) POC Hematocrit 28.0(L) 40 - 52 % 10/26/2024 5:31 AM EDT [facility] Blood, Arterial 10/26/2024 5 :14 AM EDT 10/26/2024 5:31 AM EDT Semaj Mcnair III, MD POINT OF CARE TEST ORDERABLES Final Result Performing Organization Address City/[facility] Co de Phone Number [facility] [address] * POC Lactate (10/26/2024 5:14 AM EDT) POC Lactate 1.76 0.50 - 2.20 mmol/L 10/26/2024 5:31 AM EDT [facility] Blood, Arterial 10/26/2024 5 :14 AM EDT 10/26/2024 5:31 AM EDT Semaj Mcnair III, MD POINT OF CARE TEST ORDERABLES Final Result Performing Organization Address City/[facility]/ZIP Co de Phone Number [facility] [address]. [address] * (ABNORMAL) POC Glucose (10/26/2024 5:14 AM EDT) POC Glucose, Arterial 183(H) 70 - 100 mg/dL 10/26/2024 5:31 AM EDT [facility] Blood, Arterial 10/26/2024 5 :14 AM EDT 10/26/2024 5:31 AM EDT Semaj Mcnair III, MD POINT OF CARE TEST ORDERABLES Final Result Performing Organization Address [facility] Co de Phone Number [facility] [address] [place] [address]. [address] * (ABNORMAL) POC Ionized Calcium (10/26/2024 5:14 AM EDT) POC Ionized Calcium 5.50(H) 4.50 - 5.30 mg/dL 10/26/2024 5:31 AM EDT [facility] Blood, Arterial 10/26/2024 5 :14 AM EDT 10/26/2024 5:31 AM EDT Semaj Mcnair III, MD POINT OF CARE TEST ORDERABLES Final Result Performing Organization Address City/[facility] Co de Phone Number [facility] [address]. [address] * (ABNORMAL) POC Potassium (10/26/2024 5:14 AM EDT) POC Potassium 2.8(LL) 3.5 - 5.3 mmol/L 10/26/2024 5:31 AM EDT [facility] Blood, Arterial 10/26/2024 5 :14 AM EDT 10/26/2024 5:31 AM EDT us Semaj Mcnair III, MD POINT OF CARE TEST ORDERABLES Final Result Performing Organization Address City/[facility]/ZIP Co de Phone Number [facility] [address] * POC Sodium (10/26/2024 5:14 AM EDT) POC Sodium 138 136 - 146 mmol/L 10/26/2024 5:31 AM EDT [facility] Blood, Arterial 10/26/2024 5 :14 AM EDT 10/26/2024 5:31 AM EDT us Semaj Mcnair III, MD POINT OF CARE TEST ORDERABLES Final Result Performing Organization Address City/[facility] Co de Phone Number [facility] [address] [place] [address]. [address] * POC TCO2 (10/26/2024 5:14 AM EDT) POC TCO2, Arterial 23 23 - 27 mmol/L 10/26/2024 5:31 AM EDT [facility] Blood, Arterial 10/26/2024 5 :14 AM EDT 10/26/2024 5:31 AM EDT us Semaj Mcnair III, MD POINT OF CARE TEST ORDERABLES Final Result Performing Organization Address City/[facility]/ZIP Co de Phone Number [facility] [address] * (ABNORMAL) POC O2 SAT (10/26/2024 5:14 AM EDT) POC O2 Saturation, Arterial 99(H) 95 - 98 % 10/26/2024 5:31 AM EDT [facility] Blood, Arterial 10/26/2024 5 :14 AM EDT 10/26/2024 5:31 AM EDT us Semaj Mcnair III, MD POINT OF CARE TEST ORDERABLES Final Result Performing Organization Address City/[facility]/ZIP Co de Phone Number [facility] [address] * (ABNORMAL) POC Base Excess (10/26/2024 5:14 AM EDT) POC Base Excess, Arterial -5(L) -2 - 3 mmol/L 10/26/2024 5:31 AM EDT [facility] Blood, Arterial 10/26/2024 5 :14 AM EDT 10/26/2024 5:31 AM EDT us Semaj Mcnair III, MD POINT OF CARE TEST ORDERABLES Final Result Performing Organization Address [facility] Co de Phone Number [facility] [address] * POC HCO3 (10/26/2024 5:14 AM EDT) POC HCO3, Arterial 22 22 - 26 mmol/L 10/26/2024 5:31 AM EDT [facility] Blood, Arterial 10/26/2024 5 :14 AM EDT 10/26/2024 5:31 AM EDT us Semaj Mcnair III, MD POINT OF CARE TEST ORDERABLES Final Result Performing Organization Address [facility]/ZIP Co de Phone Number [facility] [address] [facility]. [address] * (ABNORMAL) POC PO2 (10/26/2024 5:14 AM EDT) POC pO2, Arterial 133(H) 80 - 100 mm Hg 10/26/2024 5:31 AM EDT [facility] Blood, Arterial 10/26/2024 5 :14 AM EDT 10/26/2024 5:31 AM EDT us Semaj Mcnair III, MD POINT OF CARE TEST ORDERABLES Final Result [facility] [address] * POC PCO2 (10/26/2024 5:14 AM EDT) POC pCO2, Arterial 45 35 - 45 mm Hg 10/26/2024 5:31 AM EDT [facility] Blood, Arterial 10/26/2024 5 :14 AM EDT 10/26/2024 5:31 AM EDT us Semaj Mcnair III, MD POINT OF CARE TEST ORDERABLES Final Result Performing Organization Address [facility] Co de Phone Number [facility] [address] [facility]. [address] * (ABNORMAL) POC pH (10/26/2024 5:14 AM EDT) POC pH, Arterial 7.29(L) 7.35 - 7.45 10/26/2024 5:31 AM EDT [facility] Blood, Arterial 10/26/2024 5 :14 AM EDT 10/26/2024 5:31 AM EDT us Semaj Mcnair III, MD POINT OF CARE TEST ORDERABLES Final Result Performing Organization Address [facility] Co de Phone Number [facility] [address] [facility]. [address] * Transfuse Cryoprecipitate (10/26/2024 4:37 AM EDT) us Eber Quinones MD NURSING TREATMENT ORDERA BLES - BLOOD ADMIN Final Result * Transfuse Cryoprecipitate (10/26/2024 4:37 AM EDT) Eber Quinones MD NURSING TREATMENT ORDERA BLES - BLOOD ADMIN Final Result * (ABNORMAL) POC INR (10/26/2024 4:27 AM EDT) Prothrombin Time INR, POC 2.3(H) 0.8 - 1.4 10/27/2024 6:51 AM EDT [facility] Comment: Test results may vary using different testing platforms. Serial result monitoring should be performed using the same methodology. RECOMMENDED THERAPEUTIC RANGES USING INR : Stable oral anticoagulant therapy: 2.0 - 3.0 Mechanical prosthetic heart valve: 2.5 - 3.5 Recurrent acute myocardial infarction: 2.5 - 3.5 Blood 10/26/2024 4:27 AM EDT 10/27/2024 6:51 AM EDT Semaj Mcnair III, MD POINT OF CARE TEST ORDERABLES Final Result [facility] [address] [facility] * POC Sample Type (10/26/2024 4:24 AM EDT) POC Sample Type Arterial 10/26/2024 5:09 AM EDT [facility] Blood, Arterial 10/26/2024 4 :24 AM EDT 10/26/2024 5:09 AM EDT Semaj Mcnair III, MD POINT OF CARE TEST ORDERABLES Final Result Performing Organization Address City/[facility] Co de Phone Number [facility] [address] * POC Anion Gap (10/26/2024 4:24 AM EDT) POC Anion Gap, Arterial 14 3 - 16 mmol/L 10/26/2024 5:09 AM EDT [facility] Blood, Arterial 10/26/2024 4 :24 AM EDT 10/26/2024 5:09 AM EDT Semaj Mcnair III, MD POINT OF CARE TEST ORDERABLES Final Result Performing Organization Address City/[facility]/ZIP Co de Phone Number [facility] [address] * POC Chloride (10/26/2024 4:24 AM EDT) POC Chloride 103 98 - 110 mmol/L 10/26/2024 5:09 AM EDT [facility] Blood, Arterial 10/26/2024 4 :24 AM EDT 10/26/2024 5:09 AM EDT us Semaj Mcnair III, MD POINT OF CARE TEST ORDERABLES Final Result [facility] [address] [facility]. [address] * (ABNORMAL) POC Hemoglobin (10/26/2024 4:24 AM EDT) POC Hemoglobin 10.3(L) 14.0 - 18.0 g/dL 10/26/2024 5:09 AM EDT [facility] Blood, Arterial 10/26/2024 4 :24 AM EDT 10/26/2024 5:09 AM EDT us Semaj Mcnair III, MD POINT OF CARE TEST ORDERABLES Final Result Performing Organization Address City/[facility] Co de Phone Number [facility] [address] [place] [address]. [address] [address] * (ABNORMAL) POC hematocrit (10/26/2024 4:24 AM EDT) POC Hematocrit 30.0(L) 40 - 52 % 10/26/2024 5:09 AM EDT [facility] Blood, Arterial 10/26/2024 4 :24 AM EDT 10/26/2024 5:09 AM EDT us Semaj Mcnair III, MD POINT OF CARE TEST ORDERABLES Final Result Performing Organization Address City/[facility] Co de Phone Number [facility] [address] [facility]. [address] * (ABNORMAL) POC Lactate (10/26/2024 4:24 AM EDT) Pathologist [facility] POC Lactate 2.43(H) 0.50 - 2.20 mmol/L 10/26/2024 5:09 AM EDT [facility] Blood, Arterial 10/26/2024 4 :24 AM EDT 10/26/2024 5:09 AM EDT us Semaj Mcnair III, MD POINT OF CARE TEST ORDERABLES Final Result Performing Organization Address City/[facility]/ZIP Co de Phone Number [facility] [address] [place] [address]. [address] * (ABNORMAL) POC Glucose (10/26/2024 4:24 AM EDT) Pathologist [facility] POC Glucose, Arterial 185(H) 70 - 100 mg/dL 10/26/2024 5:09 AM EDT [facility] Blood, Arterial 10/26/2024 4 :24 AM EDT 10/26/2024 5:09 AM EDT us Semaj Mcnair III, MD POINT OF CARE TEST ORDERABLES Final Result Performing Organization Address [facility] Co de Phone Number [facility] [address] [place] [address]. [address] * POC Ionized Calcium (10/26/2024 4:24 AM EDT) [facility] POC Ionized Calcium 5.20 4.50 - 5.30 mg/dL 10/26/2024 5:09 AM EDT [facility] Blood, Arterial 10/26/2024 4 :24 AM EDT 10/26/2024 5:09 AM EDT us Semaj Mcnair III, MD POINT OF CARE TEST ORDERABLES Final Result Performing Organization Address City/[facility] Co de Phone Number [facility] [address] [place] [address]. [address] * (ABNORMAL) POC Potassium (10/26/2024 4:24 AM EDT) POC Potassium 2.8(LL) 3.5 - 5.3 mmol/L 10/26/2024 5:09 AM EDT [facility] Blood, Arterial 10/26/2024 4 :24 AM EDT 10/26/2024 5:09 AM EDT us Semaj Mcnair III, MD POINT OF CARE TEST ORDERABLES Final Result Performing Organization Address City/[facility]/ZIP Co de Phone Number [facility] [address] [place] [address]. [address] * POC Sodium (10/26/2024 4:24 AM EDT) Pathologist [facility] POC Sodium 139 136 - 146 mmol/L 10/26/2024 5:09 AM EDT [facility] Blood, Arterial 10/26/2024 4 :24 AM EDT 10/26/2024 5:09 AM EDT us Semaj Mcnair III, MD POINT OF CARE TEST ORDERABLES Final Result Performing Organization Address [facility] Co de Phone Number [facility] [address] [place] [address]. [address] * POC TCO2 (10/26/2024 4:24 AM EDT) Pathologist [facility] POC TCO2, Arterial 23 23 - 27 mmol/L 10/26/2024 5:09 AM EDT [facility] Blood, Arterial 10/26/2024 4 :24 AM EDT 10/26/2024 5:09 AM EDT us Semaj Mcnair III, MD POINT OF CARE TEST ORDERABLES Final Result Performing Organization Address City/[facility] Co de Phone Number [facility] [address] [place] [address]. [address] * POC O2 SAT (10/26/2024 4:24 AM EDT) Pathologist [facility] POC O2 Saturation, Arterial 96 95 - 98 % 10/26/2024 5:09 AM EDT [facility] Blood, Arterial 10/26/2024 4 :24 AM EDT 10/26/2024 5:09 AM EDT us Semaj Mcnair III, MD POINT OF CARE TEST ORDERABLES Final Result [facility] [address] [facility]. [address] * (ABNORMAL) POC Base Excess (10/26/2024 4:24 AM EDT) POC Base Excess, Arterial -5(L) -2 - 3 mmol/L 10/26/2024 5:09 AM EDT [facility] Blood, Arterial 10/26/2024 4 :24 AM EDT 10/26/2024 5:09 AM EDT us Semaj Mcnair III, MD POINT OF CARE TEST ORDERABLES Final Result Performing Organization Address City/[facility]/ZIP Co de Phone Number [facility] [address] [facility]. [address] * POC HCO3 (10/26/2024 4:24 AM EDT) POC HCO3, Arterial 22 22 - 26 mmol/L 10/26/2024 5:09 AM EDT [facility] Blood, Arterial 10/26/2024 4 :24 AM EDT 10/26/2024 5:09 AM EDT us Semaj Mcnair III, MD POINT OF CARE TEST ORDERABLES Final Result [facility] [address] [facility]. [address] * POC PO2 (10/26/2024 4:24 AM EDT) POC pO2, Arterial 93 80 - 100 mm Hg 10/26/2024 5:09 AM EDT [facility] Blood, Arterial 10/26/2024 4 :24 AM EDT 10/26/2024 5:09 AM EDT Semaj Mcnair III, MD POINT OF CARE TEST ORDERABLES Final Result Performing Organization Address [facility] Co de Phone Number [facility] [address] * POC PCO2 (10/26/2024 4:24 AM EDT) POC pCO2, Arterial 44 35 - 45 mm Hg 10/26/2024 5:09 AM EDT [facility] Blood, Arterial 10/26/2024 4 :24 AM EDT 10/26/2024 5:09 AM EDT Semaj Mcnair III, MD POINT OF CARE TEST ORDERABLES Final Result Performing Organization Address [facility] Co de Phone Number [facility] [address] [facility]. [address] * (ABNORMAL) POC pH (10/26/2024 4:24 AM EDT) POC pH, Arterial 7.30(L) 7.35 - 7.45 10/26/2024 5:09 AM EDT [facility] Blood, Arterial 10/26/2024 4 :24 AM EDT 10/26/2024 5:09 AM EDT Semaj Mcnair III, MD POINT OF CARE TEST ORDERABLES Final Result Performing Organization Address [facility] Co de Phone Number [facility] [address] [facility]. [address] * Transfuse Platelets (10/26/2024 4:14 AM EDT) Result [facility] Ben Blake MD NURSING TREATMENT ORDERABLES - BLOOD ADMIN Final Result * Transfuse Fresh Frozen Plasma (10/26/2024 3:47 AM EDT) Ben Blake MD NURSING TREATMENT ORDERABLES - BLOOD ADMIN Final Result * (ABNORMAL) POC INR (10/26/2024 3:34 AM EDT) Prothrombin Time INR, POC 2.8(H) 0.8 - 1.4 10/27/2024 6:51 AM EDT [facility] Comment: Test results may vary using different testing platforms. Serial result monitoring should be performed using the same methodology. RECOMMENDED THERAPEUTIC RANGES USING INR : Stable oral anticoagulant therapy: 2.0 - 3.0 Mechanical prosthetic heart valve: 2.5 - 3.5 Recurrent acute myocardial infarction: 2.5 - 3.5 Blood 10/26/2024 3:34 AM EDT 10/27/2024 6:51 AM EDT us Semaj Mcnair III, MD POINT OF CARE TEST ORDERABLES Final Result Performing Organization Address [facility] Co de Phone Number [facility] [address] [place] [address]. [address] * POC Sample Type (10/26/2024 3:31 AM EDT) Pathologist [facility] POC Sample Type Arterial 10/26/2024 4:11 AM EDT [facility] Blood, Arterial 10/26/2024 3 :31 AM EDT 10/26/2024 4:11 AM EDT us Semaj Mcnair III, MD POINT OF CARE TEST ORDERABLES Final Result Performing Organization Address City/[facility] Co de Phone Number [facility] [address] [place] [address]. [address] * POC Anion Gap (10/26/2024 3:31 AM EDT) POC Anion Gap, Arterial 15 3 - 16 mmol/L 10/26/2024 4:11 AM EDT [facility] Blood, Arterial 10/26/2024 3 :31 AM EDT 10/26/2024 4:11 AM EDT us Semaj Mcnair III, MD POINT OF CARE TEST ORDERABLES Final Result Performing Organization Address [facility]/ZIP Co de Phone Number [facility] [address] * POC Chloride (10/26/2024 3:31 AM EDT) POC Chloride 105 98 - 110 mmol/L 10/26/2024 4:11 AM EDT [facility] Blood, Arterial 10/26/2024 3 :31 AM EDT 10/26/2024 4:11 AM EDT us Semaj Mcnair III, MD POINT OF CARE TEST ORDERABLES Final Result Performing Organization Address [facility] Co de Phone Number [facility] [address] [facility]. [address] * (ABNORMAL) POC Hemoglobin (10/26/2024 3:31 AM EDT) POC Hemoglobin 9.7(L) 14.0 - 18.0 g/dL 10/26/2024 4:11 AM EDT [facility] Blood, Arterial 10/26/2024 3 :31 AM EDT 10/26/2024 4:11 AM EDT us Semaj Mcnair III, MD POINT OF CARE TEST ORDERABLES Final Result Performing Organization Address [facility] Co de Phone Number [facility] [address] [facility]. [address] * (ABNORMAL) POC hematocrit (10/26/2024 3:31 AM EDT) POC Hematocrit 29.0(L) 40 - 52 % 10/26/2024 4:11 AM EDT [facility] Blood, Arterial 10/26/2024 3 :31 AM EDT 10/26/2024 4:11 AM EDT us Semaj Mcnair III, MD POINT OF CARE TEST ORDERABLES Final Result Performing Organization Address [facility] Co de Phone Number [facility] [address] [facility]. [address] * (ABNORMAL) POC Lactate (10/26/2024 3:31 AM EDT) POC Lactate 3.54(H) 0.50 - 2.20 mmol/L 10/26/2024 4:11 AM EDT [facility] Blood, Arterial 10/26/2024 3 :31 AM EDT 10/26/2024 4:11 AM EDT us Semaj Mcnair III, MD POINT OF CARE TEST ORDERABLES Final Result Performing Organization Address [facility] Co de Phone Number [facility] [address] [facility]. [address] * (ABNORMAL) POC Glucose (10/26/2024 3:31 AM EDT) POC Glucose, Arterial 153(H) 70 - 100 mg/dL 10/26/2024 4:11 AM EDT [facility] Blood, Arterial 10/26/2024 3 :31 AM EDT 10/26/2024 4:11 AM EDT us Semaj Mcnair III, MD POINT OF CARE TEST ORDERABLES Final Result Performing Organization Address [facility] Co de Phone Number [facility] [address] [facility]. [address] * POC Ionized Calcium (10/26/2024 3:31 AM EDT) POC Ionized Calcium 5.10 4.50 - 5.30 mg/dL 10/26/2024 4:11 AM EDT [facility] Blood, Arterial 10/26/2024 3 :31 AM EDT 10/26/2024 4:11 AM EDT us Semaj Mcnair III, MD POINT OF CARE TEST ORDERABLES Final Result [facility] [address] * (ABNORMAL) POC Potassium (10/26/2024 3:31 AM EDT) POC Potassium 2.6(LL) 3.5 - 5.3 mmol/L 10/26/2024 4:11 AM EDT [facility] Blood, Arterial 10/26/2024 3 :31 AM EDT 10/26/2024 4:11 AM EDT us Semaj Mcnair III, MD POINT OF CARE TEST ORDERABLES Final Result Performing Organization Address [facility] Co de Phone Number [facility] [address]. [address] * POC Sodium (10/26/2024 3:31 AM EDT) POC Sodium 138 136 - 146 mmol/L 10/26/2024 4:11 AM EDT [facility] Blood, Arterial 10/26/2024 3 :31 AM EDT 10/26/2024 4:11 AM EDT us Semaj Mcnair III, MD POINT OF CARE TEST ORDERABLES Final Result Performing Organization Address [facility] Co de Phone Number [facility] [address] [facility]. [address] * (ABNORMAL) POC TCO2 (10/26/2024 3:31 AM EDT) POC TCO2, Arterial 19(L) 23 - 27 mmol/L 10/26/2024 4:11 AM EDT [facility] Blood, Arterial 10/26/2024 3 :31 AM EDT 10/26/2024 4:11 AM EDT us Semaj Mcnair III, MD POINT OF CARE TEST ORDERABLES Final Result [facility] [address] * POC O2 SAT (10/26/2024 3:31 AM EDT) POC O2 Saturation, Arterial 97 95 - 98 % 10/26/2024 4:11 AM EDT [facility] Blood, Arterial 10/26/2024 3 :31 AM EDT 10/26/2024 4:11 AM EDT us Semaj Mcnair III, MD POINT OF CARE TEST ORDERABLES Final Result [facility] [address] * (ABNORMAL) POC Base Excess (10/26/2024 3:31 AM EDT) POC Base Excess, Arterial -9(L) -2 - 3 mmol/L 10/26/2024 4:11 AM EDT [facility] Blood, Arterial 10/26/2024 3 :31 AM EDT 10/26/2024 4:11 AM EDT us Semaj Mcnair III, MD POINT OF CARE TEST ORDERABLES Final Result Performing Organization Address City/[facility]/ZIP Co de Phone Number [facility] [address] * (ABNORMAL) POC HCO3 (10/26/2024 3:31 AM EDT) POC HCO3, Arterial 18(L) 22 - 26 mmol/L 10/26/2024 4:11 AM EDT [facility] Blood, Arterial 10/26/2024 3 :31 AM EDT 10/26/2024 4:11 AM EDT us Semaj Mcnair III, MD POINT OF CARE TEST ORDERABLES Final Result [facility] [address] * (ABNORMAL) POC PO2 (10/26/2024 3:31 AM EDT) POC pO2, Arterial 104(H) 80 - 100 mm Hg 10/26/2024 4:11 AM EDT [facility] Blood, Arterial 10/26/2024 3 :31 AM EDT 10/26/2024 4:11 AM EDT us Semaj Mcnair III, MD POINT OF CARE TEST ORDERABLES Final Result [facility] [address] * POC PCO2 (10/26/2024 3:31 AM EDT) POC pCO2, Arterial 42 35 - 45 mm Hg 10/26/2024 4:11 AM EDT [facility] Blood, Arterial 10/26/2024 3 :31 AM EDT 10/26/2024 4:11 AM EDT us Semaj Mcnair III, MD POINT OF CARE TEST ORDERABLES Final Result Performing Organization Address City/[facility]/ZIP Co de Phone Number [facility] [address] * (ABNORMAL) POC pH (10/26/2024 3:31 AM EDT) POC pH, Arterial 7.24(L) 7.35 - 7.45 10/26/2024 4:11 AM EDT [facility] Blood, Arterial 10/26/2024 3 :31 AM EDT 10/26/2024 4:11 AM EDT us Semaj Mcnair III, MD POINT OF CARE TEST ORDERABLES Final Result [facility] [address] * (ABNORMAL) TEG-Global With Lysis (Baseline TEG with LY30, Will NOT Show Heparin Effect) (53:31 AM EDT) Citrated Kaolin Reaction Time (TEGLYSIS) 6.8 4.6 - 9.1 minutes 10/26/2024 5:02 AM EDT [facility] Citrated Rapid Teg Maximum Amplitude (TEGLYSIS) <40.0(L) 52.0 - 70.0 mm 10/26/2024 5:02 AM EDT [facility] Citrated Functional Fibrinogen Maximum Amplitude (TEGLYSIS) <4.0(L) 15.0 - 32.0 mm 10/26/2024 5:02 AM EDT [facility] Citrated Kaolin Percent Lysis (TEGLYSIS) 1.4 0.0 - 2.6 % 10/26/2024 5:02 AM EDT [facility] Whole Blood (Citrate) 10/26/2024 3:31 AM EDT 10/26/2024 3:40 AM EDT us Eber Quinones MD LAB BLOOD ORDERABLES Fin al Result [facility] [address] * (ABNORMAL) CBC (10/26/2024 3:31 AM EDT) WBC 9.5 3.8 - 10.8 10E3/uL 10/26/2024 3:48 AM EDT [facility] RBC 3.68(L) 4.20 - 5.80 10E6/uL 10/26/2024 3:48 AM EDT [facility] Hemoglobin 11.5(L) 13.2 - 17.1 g/dL 10/26/2024 3:48 AM EDT [facility] Hematocrit 33.0(L) 38.5 - 50.0 % 10/26/2024 3:48 AM EDT [facility] MCV 89.6 80.0 - 100.0 fL 10/26/2024 3:48 AM EDT [facility] MCH 31.1 27.0 - 33.0 pg 10/26/2024 3:48 AM EDT [facility] MCHC 34.8 32.0 - 36.0 g/dL 10/26/2024 3:48 AM EDT [facility] RDW 19.3(H) 11.0 - 15.0 % 10/26/2024 3:48 AM EDT [facility] Platelets 67(L) 140 - 400 10E3/uL 10/26/2024 3:48 AM EDT [facility] MPV 7.9 7.5 - 11.5 fL 10/26/2024 3:48 AM EDT [facility] Whole Blood 10/26/2024 3:31 AM EDT 10/26/2024 3:40 AM EDT Eber Quinones MD LAB BLOOD ORDERABLES Fin al Result Performing Organization Address [facility] de Phone Number [facility] [address] * (ABNORMAL) Protime-INR (10/26/2024 3:31 AM EDT) Protime 27.0(H) 12.1 - 15.1 seconds 10/26/2024 3:51 AM EDT [facility] INR 2.4(H) 0.9 - 1.1 10/26/2024 3:51 AM EDT [facility] Comment: RECOMMENDED THERAPEUTIC RANGES USING INR : Stable oral anticoagulant therapy: 2.0 - 3.0 Mechanical prosthetic heart valve: 2.5 - 3.5 Recurrent acute myocardial infarction: 2.5 - 3.5 Plasma 10/26/2024 3:31 AM EDT 10/26/2024 3:40 AM EDT Eber Quinones MD LAB BLOOD ORDERABLES Fin al Result Performing Organization Address [facility] Co de Phone Number [facility] [address] * (ABNORMAL) Fibrinogen (10/26/2024 3:31 AM EDT) Fibrinogen 104(L) 218 - 406 mg/dL 10/26/2024 3:56 AM EDT [facility] Plasma 10/26/2024 3:31 AM EDT 10/26/2024 3:40 AM EDT Eber Quinones MD LAB BLOOD ORDERABLES Fin al Result [facility] [address] [place] [address], [facility] * Transfuse Fresh Frozen Plasma (10/26/2024 [...] Transfuse RBC (10/26/2024 1:45 AM EDT) Result [facility] us Ben Blake MD NURSING TREATMENT ORDERABLES - BLOOD ADMIN Final Result * Transfuse RBC (10/26/2024 1:45 AM EDT) Result [facility] us Ben Blake MD NURSING TREATMENT ORDERABLES - BLOOD ADMIN Final Result * (ABNORMAL) POC INR (10/26/2024 1:43 AM EDT) Prothrombin Time INR, POC 1.9(H) 0.8 - 1.4 10/27/2024 6:51 AM EDT [facility] Comment: Test results may vary using different testing platforms. Serial result monitoring should be performed using the same methodology. RECOMMENDED THERAPEUTIC RANGES USING INR : Stable oral anticoagulant therapy: 2.0 - 3.0 Mechanical prosthetic heart valve: 2.5 - 3.5 Recurrent acute myocardial infarction: 2.5 - 3.5 Blood 10/26/2024 1:43 AM EDT 10/27/2024 6:51 AM EDT Result [facility] Semaj Mcnair III, MD POINT OF CARE TEST ORDERABLES Final Result [facility] [address] [id number], [facility] * Transfuse Fresh Frozen Plasma (10/26/2024 1:41 AM EDT) Result [facility] Ben Blake MD NURSING TREATMENT ORDERABLES - BLOOD ADMIN Final Result * Transfuse RBC (10/26/2024 1:40 AM EDT) Result [facility] us Ben Blake MD NURSING TREATMENT ORDERABLES - BLOOD ADMIN Final Result * POC Sample Type (10/26/2024 1:40 AM EDT) POC Sample Type Arterial 10/26/2024 2:32 AM EDT [facility] Blood, Arterial 10/26/2024 1 :40 AM EDT 10/26/2024 2:32 AM EDT Result [facility] us Semaj Mcnair III, MD POINT OF CARE TEST ORDERABLES Final Result Performing Organization Address [facility] Co de Phone Number [facility] [address] * POC Anion Gap (10/26/2024 1:40 AM EDT) POC Anion Gap, Arterial 13 3 - 16 mmol/L 10/26/2024 2:32 AM EDT [facility] Blood, Arterial 10/26/2024 1 :40 AM EDT 10/26/2024 2:32 AM EDT us Semaj Mcnair III, MD POINT OF CARE TEST ORDERABLES Final Result Performing Organization Address [facility] Co de Phone Number [facility] [address] [facility]. [address] * POC Chloride (10/26/2024 1:40 AM EDT) POC Chloride 104 98 - 110 mmol/L 10/26/2024 2:32 AM EDT [facility] Blood, Arterial 10/26/2024 1 :40 AM EDT 10/26/2024 2:32 AM EDT us Semaj Mcnair III, MD POINT OF CARE TEST ORDERABLES Final Result Performing Organization Address [facility] Co de Phone Number [facility] [address] [facility]. [address] * (ABNORMAL) POC Hemoglobin (10/26/2024 1:40 AM EDT) POC Hemoglobin 7.4(L) 14.0 - 18.0 g/dL 10/26/2024 2:32 AM EDT [facility] Blood, Arterial 10/26/2024 1 :40 AM EDT 10/26/2024 2:32 AM EDT us Semaj Mcnair III, MD POINT OF CARE TEST ORDERABLES Final Result Performing Organization Address City/[facility]/ZIP Co de Phone Number [facility] [address] * (ABNORMAL) POC hematocrit (10/26/2024 1:40 AM EDT) POC Hematocrit 22.0(L) 40 - 52 % 10/26/2024 2:32 AM EDT [facility] Blood, Arterial 10/26/2024 1 :40 AM EDT 10/26/2024 2:32 AM EDT us Semaj Mcnair III, MD POINT OF CARE TEST ORDERABLES Final Result Performing Organization Address [facility] de Phone Number [facility] [address] [facility]. [address] * (ABNORMAL) POC Lactate (10/26/2024 1:40 AM EDT) POC Lactate 2.30(H) 0.50 - 2.20 mmol/L 10/26/2024 2:32 AM EDT [facility] Blood, Arterial 10/26/2024 1 :40 AM EDT 10/26/2024 2:32 AM EDT us Semaj Mcnair III, MD POINT OF CARE TEST ORDERABLES Final Result Performing Organization Address [facility] de Phone Number [facility] [address] [facility]. [address] * (ABNORMAL) POC Glucose (10/26/2024 1:40 AM EDT) POC Glucose, Arterial 116(H) 70 - 100 mg/dL 10/26/2024 2:32 AM EDT [facility] Blood, Arterial 10/26/2024 1 :40 AM EDT 10/26/2024 2:32 AM EDT us Semaj Mcnair III, MD POINT OF CARE TEST ORDERABLES Final Result Performing Organization Address [facility]/ZIP Co de Phone Number [facility] [address] * (ABNORMAL) POC Ionized Calcium (10/26/2024 1:40 AM EDT) POC Ionized Calcium 4.10(L) 4.50 - 5.30 mg/dL 10/26/2024 2:32 AM EDT [facility] Blood, Arterial 10/26/2024 1 :40 AM EDT 10/26/2024 2:32 AM EDT us Semaj Mcnair III, MD POINT OF CARE TEST ORDERABLES Final Result Performing Organization Address City/[facility] Co de Phone Number [facility] [address] [facility]. [address] * (ABNORMAL) POC Potassium (10/26/2024 1:40 AM EDT) POC Potassium 2.6(LL) 3.5 - 5.3 mmol/L 10/26/2024 2:32 AM EDT [facility] Blood, Arterial 10/26/2024 1 :40 AM EDT 10/26/2024 2:32 AM EDT us Semaj Mcnair III, MD POINT OF CARE TEST ORDERABLES Final Result Performing Organization Address [facility] Co de Phone Number [facility] [address] [facility]. [address] * (ABNORMAL) POC Sodium (10/26/2024 1:40 AM EDT) POC Sodium 135(L) 136 - 146 mmol/L 10/26/2024 2:32 AM EDT [facility] Blood, Arterial 10/26/2024 1 :40 AM EDT 10/26/2024 2:32 AM EDT us Semaj Mcnair III, MD POINT OF CARE TEST ORDERABLES Final Result [facility] [address] * (ABNORMAL) POC TCO2 (10/26/2024 1:40 AM EDT) POC TCO2, Arterial 19(L) 23 - 27 mmol/L 10/26/2024 2:32 AM EDT [facility] Blood, Arterial 10/26/2024 1 :40 AM EDT 10/26/2024 2:32 AM EDT us Semaj Mcnair III, MD POINT OF CARE TEST ORDERABLES Final Result [facility] [address] * (ABNORMAL) POC O2 SAT (10/26/2024 1:40 AM EDT) POC O2 Saturation, Arterial 99(H) 95 - 98 % 10/26/2024 2:32 AM EDT [facility] Blood, Arterial 10/26/2024 1 :40 AM EDT 10/26/2024 2:32 AM EDT us Semaj Mcnair III, MD POINT OF CARE TEST ORDERABLES Final Result [facility] [address] * (ABNORMAL) POC Base Excess (10/26/2024 1:40 AM EDT) POC Base Excess, Arterial -7(L) -2 - 3 mmol/L 10/26/2024 2:32 AM EDT [facility] Blood, Arterial 10/26/2024 1 :40 AM EDT 10/26/2024 2:32 AM EDT us Semaj Mcnair III, MD POINT OF CARE TEST ORDERABLES Final Result [facility] [address] * (ABNORMAL) POC HCO3 (10/26/2024 1:40 AM EDT) POC HCO3, Arterial 18(L) 22 - 26 mmol/L 10/26/2024 2:32 AM EDT [facility] Blood, Arterial 10/26/2024 1 :40 AM EDT 10/26/2024 2:32 AM EDT Semaj Mcnair III, MD POINT OF CARE TEST ORDERABLES Final Result [facility] [address] * (ABNORMAL) POC PO2 (10/26/2024 1:40 AM EDT) POC pO2, Arterial 145(H) 80 - 100 mm Hg 10/26/2024 2:32 AM EDT [facility] Blood, Arterial 10/26/2024 1 :40 AM EDT 10/26/2024 2:32 AM EDT Semaj Mcnair III, MD POINT OF CARE TEST ORDERABLES Final Result Performing Organization Address City/[facility]/ZIP Co de Phone Number [facility] [address] * (ABNORMAL) POC PCO2 (10/26/2024 1:40 AM EDT) POC pCO2, Arterial 33(L) 35 - 45 mm Hg 10/26/2024 2:32 AM EDT [facility] Blood, Arterial 10/26/2024 1 :40 AM EDT 10/26/2024 2:32 AM EDT us Semaj Mcnair III, MD POINT OF CARE TEST ORDERABLES Final Result [facility] [address] * POC pH (10/26/2024 1:40 AM EDT) POC pH, Arterial 7.35 7.35 - 7.45 10/26/2024 2:32 AM EDT [facility] Blood, Arterial 10/26/2024 1 :40 AM EDT 10/26/2024 2:32 AM EDT us Semaj Mcnair III, MD POINT OF CARE TEST ORDERABLES Final Result Performing Organization Address [facility] Co de Phone Number [facility] [address] * Transfuse Fresh Frozen Plasma (10/26/2024 1:20 AM EDT) us Ben Blake MD NURSING TREATMENT ORDERABLES - BLOOD ADMIN Final Result * Transfuse RBC (10/26/2024 12:56 AM EDT) us Ben Blake MD NURSING TREATMENT ORDERABLES - BLOOD ADMIN Final Result * (ABNORMAL) POC INR (10/26/2024 12:41 AM EDT) Prothrombin Time INR, POC 2.0(H) 0.8 - 1.4 10/27/2024 6:51 AM EDT [facility] Comment: Test results may vary using different testing platforms. Serial result monitoring should be performed using the same methodology. RECOMMENDED THERAPEUTIC RANGES USING INR : Stable oral anticoagulant therapy: 2.0 - 3.0 Mechanical prosthetic heart valve: 2.5 - 3.5 Recurrent acute myocardial infarction: 2.5 - 3.5 Blood 10/26/2024 12:4 1 AM EDT 10/27/2024 6:51 AM EDT us Semaj Mcnair III, MD POINT OF CARE TEST ORDERABLES Final Result Performing Organization Address City/[facility] Co de Phone Number [facility] [address] * POC Sample Type (10/26/2024 12:39 AM EDT) Pathologist [facility] POC Sample Type Arterial 10/26/2024 1:38 AM EDT [facility] Blood, Arterial 10/26/2024 1 2:39 AM EDT 10/26/2024 1:38 AM EDT us Semaj Mcnair III, MD POINT OF CARE TEST ORDERABLES Final Result Performing Organization Address City/[facility]/ZIP Co de Phone Number [facility] [address] [place] [address]. [address] * POC Anion Gap (10/26/2024 12:39 AM EDT) [facility] POC Anion Gap, Arterial 13 3 - 16 mmol/L 10/26/2024 1:38 AM EDT [facility] Blood, Arterial 10/26/2024 1 2:39 AM EDT 10/26/2024 1:38 AM EDT us Semaj Mcnair III, MD POINT OF CARE TEST ORDERABLES Final Result Performing Organization Address City/[facility] Co de Phone Number [facility] [address] [place] [address]. [address] * POC Chloride (10/26/2024 12:39 AM EDT) [facility] POC Chloride 103 98 - 110 mmol/L 10/26/2024 1:38 AM EDT [facility] Blood, Arterial 10/26/2024 1 2:39 AM EDT 10/26/2024 1:38 AM EDT us Semaj Mcnair III, MD POINT OF CARE TEST ORDERABLES Final Result Performing Organization Address City/[facility] Co de Phone Number [facility] [address] [place] [address]. [address] * (ABNORMAL) POC Hemoglobin (10/26/2024 12:39 AM EDT) [facility] POC Hemoglobin 7.9(L) 14.0 - 18.0 g/dL 10/26/2024 1:38 AM EDT [facility] Blood, Arterial 10/26/2024 1 2:39 AM EDT 10/26/2024 1:38 AM EDT us Semaj Mcnair III, MD POINT OF CARE TEST ORDERABLES Final Result Performing Organization Address City/[facility]/ZIP Co de Phone Number [facility] [address] [facility]. [address] * (ABNORMAL) POC hematocrit (10/26/2024 12:39 AM EDT) POC Hematocrit 23.0(L) 40 - 52 % 10/26/2024 1:38 AM EDT [facility] Blood, Arterial 10/26/2024 1 2:39 AM EDT 10/26/2024 1:38 AM EDT us Semaj Mcnair III, MD POINT OF CARE TEST ORDERABLES Final Result Performing Organization Address [facility] Co de Phone Number [facility] [address] [facility]. [address] * POC Lactate (10/26/2024 12:39 AM EDT) POC Lactate 1.39 0.50 - 2.20 mmol/L 10/26/2024 1:38 AM EDT [facility] Blood, Arterial 10/26/2024 1 2:39 AM EDT 10/26/2024 1:38 AM EDT us Semaj Mcnair III, MD POINT OF CARE TEST ORDERABLES Final Result Performing Organization Address City/[facility] Co de Phone Number [facility] [address] [facility]. [address] * (ABNORMAL) POC Glucose (10/26/2024 12:39 AM EDT) POC Glucose, Arterial 116(H) 70 - 100 mg/dL 10/26/2024 1:38 AM EDT [facility] Blood, Arterial 10/26/2024 1 2:39 AM EDT 10/26/2024 1:38 AM EDT us Semaj Mcnair III, MD POINT OF CARE TEST ORDERABLES Final Result Performing Organization Address City/[facility]/ZIP Co de Phone Number [facility] [address] [place] [address]. [address] * (ABNORMAL) POC Ionized Calcium (10/26/2024 12:39 AM EDT) POC Ionized Calcium 4.30(L) 4.50 - 5.30 mg/dL 10/26/2024 1:38 AM EDT [facility] Blood, Arterial 10/26/2024 1 2:39 AM EDT 10/26/2024 1:38 AM EDT us Semaj Mcnair III, MD POINT OF CARE TEST ORDERABLES Final Result Performing Organization Address [facility] Co de Phone Number [facility] [address] [facility]. [address] * (ABNORMAL) POC Potassium (10/26/2024 12:39 AM EDT) POC Potassium 2.4(LL) 3.5 - 5.3 mmol/L 10/26/2024 1:38 AM EDT [facility] Blood, Arterial 10/26/2024 1 2:39 AM EDT 10/26/2024 1:38 AM EDT us Semaj Mcnair III, MD POINT OF CARE TEST ORDERABLES Final Result Performing Organization Address City/[facility] Co de Phone Number [facility] [address] [facility]. [address] * POC Sodium (10/26/2024 12:39 AM EDT) POC Sodium 136 136 - 146 mmol/L 10/26/2024 1:38 AM EDT [facility] Blood, Arterial 10/26/2024 1 2:39 AM EDT 10/26/2024 1:38 AM EDT us Semaj Mcnair III, MD POINT OF CARE TEST ORDERABLES Final Result Performing Organization Address City/[facility]/ZIP Co de Phone Number [facility] [address] * (ABNORMAL) POC TCO2 (10/26/2024 12:39 AM EDT) POC TCO2, Arterial 21(L) 23 - 27 mmol/L 10/26/2024 1:38 AM EDT [facility] Blood, Arterial 10/26/2024 1 2:39 AM EDT 10/26/2024 1:38 AM EDT us Semaj Mcnair III, MD POINT OF CARE TEST ORDERABLES Final Result Performing Organization Address [facility] Co de Phone Number [facility] [address] [facility]. [address] * POC O2 SAT (10/26/2024 12:39 AM EDT) POC O2 Saturation, Arterial 98 95 - 98 % 10/26/2024 1:38 AM EDT [facility] Blood, Arterial 10/26/2024 1 2:39 AM EDT 10/26/2024 1:38 AM EDT us Semaj Mcnair III, MD POINT OF CARE TEST ORDERABLES Final Result Performing Organization Address City/[facility] Co de Phone Number [facility] [address] [facility]. [address] * (ABNORMAL) POC Base Excess (10/26/2024 12:39 AM EDT) POC Base Excess, Arterial -7(L) -2 - 3 mmol/L 10/26/2024 1:38 AM EDT [facility] Blood, Arterial 10/26/2024 1 2:39 AM EDT 10/26/2024 1:38 AM EDT us Semaj Mcnair III, MD POINT OF CARE TEST ORDERABLES Final Result Performing Organization Address City/[facility] Co de Phone Number [facility] [address] [facility]. [address] * (ABNORMAL) POC HCO3 (10/26/2024 12:39 AM EDT) POC HCO3, Arterial 20(L) 22 - 26 mmol/L 10/26/2024 1:38 AM EDT [facility] Blood, Arterial 10/26/2024 1 2:39 AM EDT 10/26/2024 1:38 AM EDT us Semaj Mcnair III, MD POINT OF CARE TEST ORDERABLES Final Result Performing Organization Address [facility] Co de Phone Number [facility] [address] * (ABNORMAL) POC PO2 (10/26/2024 12:39 AM EDT) POC pO2, Arterial 117(H) 80 - 100 mm Hg 10/26/2024 1:38 AM EDT [facility] Blood, Arterial 10/26/2024 1 2:39 AM EDT 10/26/2024 1:38 AM EDT us Semaj Mcnair III, MD POINT OF CARE TEST ORDERABLES Final Result Performing Organization Address City/[facility] Co de Phone Number [facility] [address] [facility]. [address] * (ABNORMAL) POC PCO2 (10/26/2024 12:39 AM EDT) POC pCO2, Arterial 46(H) 35 - 45 mm Hg 10/26/2024 1:38 AM EDT [facility] Blood, Arterial 10/26/2024 1 2:39 AM EDT 10/26/2024 1:38 AM EDT us Semaj Mcnair III, MD POINT OF CARE TEST ORDERABLES Final Result Performing Organization Address [facility] Co de Phone Number [facility] [address] [facility]. [address] * (ABNORMAL) POC pH (10/26/2024 12:39 AM EDT) POC pH, Arterial 7.24(L) 7.35 - 7.45 10/26/2024 1:38 AM EDT [facility] Blood, Arterial 10/26/2024 1 2:39 AM EDT 10/26/2024 1:38 AM EDT us Semaj Mcnair III, MD POINT OF CARE TEST ORDERABLES Final Result Performing Organization Address [facility] Co de Phone Number [facility] [address] [facility]. [address] * Transfuse Platelets (10/26/2024 12:37 AM EDT) Result [facility] Ben Blake MD NURSING TREATMENT ORDERABLES - BLOOD ADMIN Final Result * Transfuse RBC (10/26/2024 12:31 AM EDT) Result [facility] Ben Blake MD NURSING TREATMENT ORDERABLES - [...] AM EDT) Gram Stain Result Cytospin Results: [facility] Gram Stain Result Polymorphonuclear Leukocytes Seen; [facility] Gram Stain Result No Organisms Seen; [facility] Culture Result No Growth After 3 Days [facility] Surgical Swab ABDOMEN / Unknown 12:03 AM EDT Comment:2.) Ascites Anaerobhic culture Fungus culture Routine culture plus stain Narrative [facility] - 10/28/2024 9:38 PM EDT 2.) Ascites Anaerobhic culture Fungus culture Routine culture plus stain 2.) Ascites Semaj Mcnair III, MD MICROBIOLOGY - GENE RAL ORDERABLES Final Result [facility] [address] [place] [address], [facility] * Surgical Pathology Exam (10/26/2024 12:00 AM EDT) 10/26/2024 10/27/2024 Narrative [facility] - 10/26/2024 12:00 AM EDT CASE: [id number] PATIENT: BLAIR GILBERT Clinical History: Liver - kidney transplant Pre-Operative Diagnosis: Alcoholic cirrhosis of liver Post-Operative Diagnosis: Alcoholic cirrhosis of liver Specimen(s) Submitted: A. grindstone liver CPT Code(s): 53266 X 1; 13022 X 5 Additional Information: FINAL DIAGNOSIS: A. 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 - Negative for neoplasm. - Increased hepatocellular iron deposition (3+; Modified Scheuer). Gall bladder: -Intramucosal and submucosal vascular congestion and hemorrhage. - Negative for dysplasia or malignancy. Gross Description: Received in formalin, labeled Blair Gilbert and grindstone liver , is a 2338-gram, hepatectomy specimen [...] discrete masses or other lesions are identified. Yam Curer sections are submitted in cassettes [id number] as follows: A1: Hilar margins, en face. [...] Pathologist signing this report is located at [facility], [address] [place] [address], [facility] [phone], CLIA ID: [id number] us Semaj Mcnair III, MD PATHOLOGY/CYTOLOGY ORDERABLES Final Result [facility] [...] POC INR (10/25/2024 11:43 PM EDT) Pathologist [facility] Prothrombin Time INR, POC 1.7(H) 0.8 - [...] 3 PM EDT 10/27/2024 6:51 AM EDT Semaj Mcnair III, MD POINT OF CARE TEST ORDERABLES Final Result [facility] [address] * POC Sample Type (10/25/2024 11:40 PM EDT) [facility] POC Sample Type Arterial 10/25/2024 11:57 PM EDT [facility] Blood, Arterial 10/25/2024 1 1:40 PM EDT 10/25/2024 11:57 PM EDT Semaj Mcnair III, MD POINT OF CARE TEST ORDERABLES Final Result [facility] [address] * POC Anion Gap (10/25/2024 11:40 PM EDT) Pathologist [facility] POC Anion Gap, Arterial 13 3 - 16 mmol/L 10/25/2024 11:57 PM EDT [facility] Blood, Arterial 10/25/2024 1 1:40 PM EDT 10/25/2024 11:57 PM EDT us Semaj Mcnair III, MD POINT OF CARE TEST ORDERABLES Final Result [facility] [address] [facility]. [address] * POC Chloride (10/25/2024 11:40 PM EDT) POC Chloride 102 98 - 110 mmol/L 10/25/2024 11:57 PM EDT [facility] Blood, Arterial 10/25/2024 1 1:40 PM EDT 10/25/2024 11:57 PM EDT us Semaj Mcnair III, MD POINT OF CARE TEST ORDERABLES Final Result Performing Organization Address [facility]/ZIP Co de Phone Number [facility] [address] [facility]. [address] * (ABNORMAL) POC Hemoglobin (10/25/2024 11:40 PM EDT) POC Hemoglobin 6.6(L) 14.0 - 18.0 g/dL 10/25/2024 11:57 PM EDT [facility] Blood, Arterial 10/25/2024 1 1:40 PM EDT 10/25/2024 11:57 PM EDT us Semaj Mcnair III, MD POINT OF CARE TEST ORDERABLES Final Result Performing Organization Address City/[facility]/ZIP Co de Phone Number [facility] [address] [facility]. [address] * (ABNORMAL) POC hematocrit (10/25/2024 11:40 PM EDT) POC Hematocrit 19.0(L) 40 - 52 % 10/25/2024 11:57 PM EDT [facility] Blood, Arterial 10/25/2024 1 1:40 PM EDT 10/25/2024 11:57 PM EDT us Semaj Mcnair III, MD POINT OF CARE TEST ORDERABLES Final Result [facility] [address] [facility]. [address] * POC Lactate (10/25/2024 11:40 PM EDT) Pathologist [facility] POC Lactate 1.36 0.50 - 2.20 mmol/L 10/25/2024 11:57 PM EDT [facility] Blood, Arterial 10/25/2024 1 1:40 PM EDT 10/25/2024 11:57 PM EDT Semaj Mcnair III, MD POINT OF CARE TEST ORDERABLES Final Result Performing Organization Address City/[facility]/ZIP Co de Phone Number [facility] [address] [facility]. [address] * (ABNORMAL) POC Glucose (10/25/2024 11:40 PM EDT) Pathologist [facility] POC Glucose, Arterial 101(H) 70 - 100 mg/dL 10/25/2024 11:57 PM EDT [facility] Blood, Arterial 10/25/2024 1 1:40 PM EDT 10/25/2024 11:57 PM EDT Semaj Mcnair III, MD POINT OF CARE TEST ORDERABLES Final Result [facility] [address] [facility]. [address] * POC Ionized Calcium (10/25/2024 11:40 PM EDT) Pathologist [facility] POC Ionized Calcium 4.50 4.50 - 5.30 mg/dL 10/25/2024 11:57 PM EDT [facility] Blood, Arterial 10/25/2024 1 1:40 PM EDT 10/25/2024 11:57 PM EDT us Semaj Mcnair III, MD POINT OF CARE TEST ORDERABLES Final Result [facility] [address] [place] [address]. [address] * (ABNORMAL) POC Potassium (10/25/2024 11:40 PM EDT) POC Potassium 1.9(LL) 3.5 - 5.3 mmol/L 10/25/2024 11:57 PM EDT [facility] Blood, Arterial 10/25/2024 1 1:40 PM EDT 10/25/2024 11:57 PM EDT us Semaj Mcnair III, MD POINT OF CARE TEST ORDERABLES Final Result Performing Organization Address [facility]/ZIP Co de Phone Number [facility] [address] [facility]. [address] * (ABNORMAL) POC Sodium (10/25/2024 11:40 PM EDT) POC Sodium 135(L) 136 - 146 mmol/L 10/25/2024 11:57 PM EDT [facility] Blood, Arterial 10/25/2024 1 1:40 PM EDT 10/25/2024 11:57 PM EDT Semaj Mcnair III, MD POINT OF CARE TEST ORDERABLES Final Result [facility] [address] [facility]. [address] * (ABNORMAL) POC TCO2 (10/25/2024 11:40 PM EDT) POC TCO2, Arterial 21(L) 23 - 27 mmol/L 10/25/2024 11:57 PM EDT [facility] Blood, Arterial 10/25/2024 1 1:40 PM EDT 10/25/2024 11:57 PM EDT us Semaj Mcnair III, MD POINT OF CARE TEST ORDERABLES Final Result [facility] [address] * POC O2 SAT (10/25/2024 11:40 PM EDT) POC O2 Saturation, Arterial 98 95 - 98 % 10/25/2024 11:57 PM EDT [facility] Blood, Arterial 10/25/2024 1 1:40 PM EDT 10/25/2024 11:57 PM EDT Semaj Mcnair III, MD POINT OF CARE TEST ORDERABLES Final Result Performing Organization Address City/[facility]/ZIP Co de Phone Number [facility] [address] [facility]. [address] * (ABNORMAL) POC Base Excess (10/25/2024 11:40 PM EDT) POC Base Excess, Arterial -6(L) -2 - 3 mmol/L 10/25/2024 11:57 PM EDT [facility] Blood, Arterial 10/25/2024 1 1:40 PM EDT 10/25/2024 11:57 PM EDT Semaj Mcnair III, MD POINT OF CARE TEST ORDERABLES Final Result [facility] [address] [facility]. [address] * (ABNORMAL) POC HCO3 (10/25/2024 11:40 PM EDT) POC HCO3, Arterial 20(L) 22 - 26 mmol/L 10/25/2024 11:57 PM EDT [facility] Blood, Arterial 10/25/2024 1 1:40 PM EDT 10/25/2024 11:57 PM EDT us Semaj Mcnair III, MD POINT OF CARE TEST ORDERABLES Final Result Performing Organization Address City/[facility] Co de Phone Number [facility] [address] [facility]. [address] * (ABNORMAL) POC PO2 (10/25/2024 11:40 PM EDT) POC pO2, Arterial 107(H) 80 - 100 mm Hg 10/25/2024 11:57 PM EDT [facility] Blood, Arterial 10/25/2024 1 1:40 PM EDT 10/25/2024 11:57 PM EDT us Semaj Mcnair III, MD POINT OF CARE TEST ORDERABLES Final Result Performing Organization Address [facility] Co de Phone Number [facility] [address] [facility]. [address] * POC PCO2 (10/25/2024 11:40 PM EDT) POC pCO2, Arterial 41 35 - 45 mm Hg 10/25/2024 11:57 PM EDT [facility] Blood, Arterial 10/25/2024 1 1:40 PM EDT 10/25/2024 11:57 PM EDT us Semaj Mcnair III, MD POINT OF CARE TEST ORDERABLES Final Result Performing Organization Address City/[facility] Co de Phone Number [facility] [address] [facility]. [address] * (ABNORMAL) POC pH (10/25/2024 11:40 PM EDT) POC pH, Arterial 7.29(L) 7.35 - 7.45 10/25/2024 11:57 PM EDT [facility] Blood, Arterial 10/25/2024 1 1:40 PM EDT 10/25/2024 11:57 PM EDT Semaj Mcnair III, MD POINT OF CARE TEST ORDERABLES Final Result [facility] [address] [facility]. [address] * Urine culture (10/25/2024 11:08 PM EDT) Culture Result <1,000 cfu/mL [facility] Culture Result Skin/Urogeni rony Mckayla. No Further Workup. [facility] Newly Placed Berkowitz Urine URINE SPECIMEN / Unknown 10/25/2024 11:08 PM EDT Comment:urine culture Narrative [facility] - 10/28/2024 9:59 AM EDT urine culture urine culture Semaj Mcnair III, MD MICROBIOLOGY - GENE RAL ORDERABLES Final Result Performing Organization Address City/[facility]/ZIP Co de Phone Number [facility] [address] [facility]. [address] * X-ray Portable Chest (10/25/2024 10:19 [...] - 2.2 mmol/L 10/25/2024 10:39 PM EDT [facility] Plasma 10/25/2024 10:1 7 PM EDT 10/25/2024 10:17 PM EDT Ben Blake MD LAB BLOOD ORDERABLES Final Re sult [facility] [address] [place] [address], [facility] * (ABNORMAL) Ferritin (10/25/2024 10:17 PM EDT) Ferritin 623.2(H) 23.9 - 336.2 ng/mL 10/25/2024 11:02 PM EDT [facility] Serum 10/25/2024 10:1 7 PM EDT 10/25/2024 10:17 PM EDT us Leandra Og MD LAB BLOOD ORDERABLES F inal Result [facility] [address] [facility]. [address] * Iron Studies (Iron + TIBC) (10/25/2024 10:17 PM EDT) Iron 128 50 - 212 ug/dL 10/25/2024 10:44 PM EDT [facility] % Iron Saturation SEE COMMENT 15.0 - 55.0 % 10/25/2024 10:44 PM EDT [facility] Comment:Unable to calculate result because contributing result outside reportable range.. TIBC SEE COMMENT 261 - 462 ug/dL 10/25/2024 10:44 PM EDT [facility] Comment:Unable to calculate result because contributing result outside reportable range.. Serum 10/25/2024 10:1 7 PM EDT 10/25/2024 10:17 PM EDT us Laendra Og MD LAB BLOOD ORDERABLES F inal Result Performing Organization Address City/[facility]/ZIP Co de Phone Number [facility] [address] [facility]. [address] * PTH (10/25/2024 10:17 PM EDT) PTH 36.0 12.0 - 88.0 pg/mL 10/25/2024 11:01 PM EDT [facility] Serum 10/25/2024 10:1 7 PM EDT 10/25/2024 10:17 PM EDT us Leandra Og MD LAB BLOOD ORDERABLES F inal Result [facility] [address] [facility]. [address] * HIV 1+2 Antibody/Antigen with Reflex (10/25/2024 10:17 PM EDT) HIV 1+2 AB/AGN Nonreactive Nonreactive 10/25/2024 11:03 PM EDT [facility] Serum 10/25/2024 10:1 7 PM EDT 10/25/2024 10:16 PM EDT [facility] - 10/25/2024 11:03 PM EDT \HIVRNR Leandra Og MD LAB BLOOD ORDERABLES F inal Result Performing Organization Address [facility] Co de Phone Number [facility] [address] [place] [address]. [address] * Hepatitis B Core Antibody (10/25/2024 10:17 PM EDT) Hep B Core Total Ab Nonreactive Nonreactive 10/25/2024 11:07 PM EDT [facility] Comment:Health Department no tified in accordance with reportable infectious disease guidelines. Serum 10/25/2024 10:1 7 PM EDT 10/25/2024 10:17 PM EDT [facility] - 10/25/2024 11:07 PM EDT A nonreactive final interpretation indicates that anti-HBc antibodies were not detected in the sample; it is possible that the individual is not infected with HBV. us Leandra Og MD LAB BLOOD ORDERABLES F inal Result Performing Organization Address City/[facility] Co de Phone Number [facility] [address] [place] [address]. [address] * Hepatitis C Antibody (10/25/2024 10:17 PM EDT) HCV Ab Nonreactive Nonreactive 10/25/2024 11:16 PM EDT [facility] Comment:Health Department no tified in accordance with reportable infectious disease guidelines. Serum 10/25/2024 10:1 7 PM EDT 10/25/2024 10:17 PM EDT [facility] - 10/25/2024 11:16 PM EDT Antibodies to HCV not detected; does not exclude the possibility of exposure to HCV. us Leandra Og MD LAB BLOOD ORDERABLES F inal Result Performing Organization Address City/[facility] Co de Phone Number [facility] [address] [facility]. [address] * (ABNORMAL) Hepatitis B Surface Antibody, Quantitati (10/25/2024 10:17 PM EDT) [facility] HBSAB NUMBER 10.70(H) 0.00 - 9.99 mIU/mL 10/25/2024 11:52 PM EDT [facility] Hep B S Ab Equivocal (A) Nonreactive 10/25/2024 11:52 PM EDT [facility] Serum 10/25/2024 10:1 7 PM EDT 10/25/2024 10:17 PM EDT Leandra Og MD LAB BLOOD ORDERABLES F inal Result Performing Organization Address [facility] Co de Phone Number [facility] [address] [facility]. [address] * Hepatitis B surface antigen (10/25/2024 10:17 PM EDT) [facility] Hep B Surface Ag Nonreactive Nonreactive 10/25/2024 11:12 PM EDT [facility] Comment:Health Department no tified in accordance with reportable infectious disease guidelines. Serum 10/25/2024 10:1 7 PM EDT 10/25/2024 10:17 PM EDT Narrative [facility] - 10/25/2024 11:12 PM EDT Specimen is considered negative for HBsAg. us Leandra Og MD LAB BLOOD ORDERABLES F inal Result Performing Organization Address City/[facility] Co de Phone Number [facility] [address] [facility]. [address] * Hepatitis A Antibody Total (10/25/2024 10:17 PM EDT) Anti-HAV Total (IgG + IgM) Nonreactive 10/25/2024 11:13 PM EDT [facility] Serum 10/25/2024 10:1 7 PM EDT 10/25/2024 10:17 PM EDT Narrative [facility] - 10/25/2024 11:13 PM EDT HAV antibodies not detected Leandra Og MD LAB BLOOD ORDERABLES F inal Result Performing Organization Address [facility]/ZIP Co de Phone Number [facility] [address] [facility]. [address] * (ABNORMAL) Hepatic Function Panel (10/25/2024 10:17 PM EDT) Total Bilirubin 9.1(H) 0.0 - 1.5 mg/dL 10/25/2024 10:47 PM EDT [facility] Bilirubin, Direct 4.58(H) 0.00 - 0.40 mg/dL 10/25/2024 10:47 PM EDT [facility] AST 51(H) 13 - 39 U/L 10/25/2024 10:47 PM EDT [facility] ALT 23 7 - 52 U/L 10/25/2024 10:47 PM EDT [facility] Alkaline Phosphatase 144(H) 36 - 125 U/L 10/25/2024 10:47 PM EDT [facility] Total Protein 5.5(L) 6.4 - 8.9 g/dL 10/25/2024 10:47 PM EDT [facility] Albumin 3.5 3.5 - 5.7 g/dL 10/25/2024 10:47 PM EDT [facility] Bilirubin, Indirect 4.52(H) 0.00 - 1.10 mg/dL 10/25/2024 10:47 PM EDT [facility] Plasma 10/25/2024 10:1 7 PM EDT 10/25/2024 10:17 PM EDT Leandra Og MD LAB BLOOD ORDERABLES F inal Result [facility] [address]. [address] * (ABNORMAL) Renal Function Panel w/EGFR (10/25/2024 10:17 PM EDT) Sodium 137 133 - 146 mmol/L 10/25/2024 10:47 PM EDT [facility] Potassium 2.1(LL) 3.5 - 5.3 mmol/L 10/25/2024 10:47 PM EDT [facility] Comment:Critical Result K:2. 1 Called to and read back by: ALICIA CARCAMO RN at: 10/25/2024 22:47:45 by:NANCY Chloride 100 98 - 110 mmol/L 10/25/2024 10:47 PM EDT [facility] CO2 20(L) 21 - 33 mmol/L 10/25/2024 10:47 PM EDT [facility] Anion Gap 17(H) 3 - 16 mmol/L 10/25/2024 10:47 PM EDT [facility] BUN 74(H) 7 - 25 mg/dL 10/25/2024 10:47 PM EDT [facility] Creatinine 3.87(H) 0.60 - 1.30 mg/dL 10/25/2024 10:47 PM EDT [facility] Glucose 114(H) 70 - 100 mg/dL 10/25/2024 10:47 PM EDT [facility] Calcium 9.3 8.6 - 10.3 mg/dL 10/25/2024 10:47 PM EDT [facility] Phosphorus 5.9(H) 2.1 - 4.7 mg/dL 10/25/2024 10:47 PM EDT [facility] Albumin 3.5 3.5 - 5.7 g/dL 10/25/2024 10:47 PM EDT [facility] Osmolality, Calculated 307(H) 278 - 305 mOsm/kg 10/25/2024 10:47 PM EDT [facility] EGFR 19 10/25/2024 10:47 PM EDT [facility] Comment:As of 2021, the estimated GFR [...] Hospital/ZIP Co de Phone Number [facility] [address] [facility]. [address] * (ABNORMAL) APTT, NO ANTICOAGULANT (10/25/2024 10:17 PM EDT) aPTT 41.7(H) 25.5 - 35.0 seconds 10/25/2024 10:36 PM EDT [facility] Plasma 10/25/2024 10:1 7 PM EDT 10/25/2024 10:17 PM EDT Leandra Og MD LAB BLOOD ORDERABLES F inal Result Performing Organization Address City/[facility]/ZIP Co de Phone Number [facility] [address] [facility]. [address] * (ABNORMAL) Protime-INR (10/25/2024 10:17 PM EDT) Protime 21.7(H) 12.1 - 15.1 seconds 10/25/2024 10:35 PM EDT [facility] INR 1.8(H) 0.9 - 1.1 10/25/2024 10:35 PM EDT [facility] Comment: RECOMMENDED THERAPEUTIC RANGES USING INR : Stable oral anticoagulant therapy: 2.0 - 3.0 Mechanical prosthetic heart valve: 2.5 - 3.5 Recurrent acute myocardial infarction: 2.5 - 3.5 Plasma 10/25/2024 10:1 7 PM EDT 10/25/2024 10:17 PM EDT us Leandra Og MD LAB BLOOD ORDERABLES F inal Result [facility] [address] [place], [place] [address] * (ABNORMAL) Differential (10/25/2024 10:17 PM EDT) Differential Comments See Note 10/25/2024 10:54 PM EDT [facility] Comment: _Platelets Appear Decreased _Platelet Morphology Normal Scan Result PERFORMED 10/25/2024 10:54 PM EDT [facility] Neutrophils Relative 79.8 40.0 - 80.0 % 10/25/2024 10:54 PM EDT [facility] Lymphocytes Relative 9.6(L) 15.0 - 45.0 % 10/25/2024 10:54 PM EDT [facility] Monocytes Relative 8.9 0.0 - 12.0 % 10/25/2024 10:54 PM EDT [facility] Eosinophils Relative 1.3 0.0 - 8.0 % 10/25/2024 10:54 PM EDT [facility] Basophils Relative 0.4 0.0 - 1.0 % 10/25/2024 10:54 PM EDT [facility] nRBC 0 0 - 0 /100 WBC 10/25/2024 10:54 PM EDT [facility] Neutrophils Absolute 4,948 1,520 - 8,640 /uL 10/25/2024 10:54 PM EDT [facility] Lymphocytes Absolute 595 570 - 4,860 /uL 10/25/2024 10:54 PM EDT [facility] Monocytes Absolute 552 0 - 1,296 /uL 10/25/2024 10:54 PM EDT [facility] Eosinophils Absolute 81 0 - 864 /uL 10/25/2024 10:54 PM EDT [facility] Basophils Absolute 25 0 - 108 /uL 10/25/2024 10:54 PM EDT [facility] PLT Morphology Platelet morphology appears normal 10/25/2024 10:54 PM EDT [facility] Whole Blood 10/25/2024 10:1 7 PM EDT 10/25/2024 10:17 PM EDT us Leandra Og MD LAB BLOOD ORDERABLES F inal Result [facility] [address] [place] [address], [facility] * (ABNORMAL) CBC (10/25/2024 10:17 PM EDT) WBC 6.2 3.8 - 10.8 10E3/uL 10/25/2024 10:54 PM EDT [facility] RBC 2.40(L) 4.20 - 5.80 10E6/uL 10/25/2024 10:54 PM EDT [facility] Hemoglobin 8.3(L) 13.2 - 17.1 g/dL 10/25/2024 10:54 PM EDT [facility] Hematocrit 23.7(L) 38.5 - 50.0 % 10/25/2024 10:54 PM EDT [facility] MCV 98.9 80.0 - 100.0 fL 10/25/2024 10:54 PM EDT [facility] MCH 34.6(H) 27.0 - 33.0 pg 10/25/2024 10:54 PM EDT [facility] MCHC 35.0 32.0 - 36.0 g/dL 10/25/2024 10:54 PM EDT [facility] RDW 17.8(H) 11.0 - 15.0 % 10/25/2024 10:54 PM EDT [facility] Platelets 56(L) 140 - 400 10E3/uL 10/25/2024 10:54 PM EDT [facility] Comment: Specimen checked for clots. None detected. Slide Reviewed for PLT Clumps. None Seen. Platelet Estimate Decreased 10/25/2024 10:54 PM EDT [facility] MPV 8.1 7.5 - 11.5 fL 10/25/2024 10:54 PM EDT [facility] Whole Blood 10/25/2024 10:1 7 PM EDT 10/25/2024 10:17 PM EDT Narrative [facility] - 10/25/2024 10:54 PM EDT Peripheral blood smear was scanned per review criteria approved by the laboratory veterinary medical officer. us Leandra Og MD LAB BLOOD ORDERABLES F inal Result Performing Organization Address [facility] de Phone Number [facility] [address] [place] [address] * Donor Specific Antibody (DSA) (10/25/2024 10:00 PM EDT) Pathologist [facility] AntiDonor Antibodies The request and specimen(s) for this test have been received and transported to the [facility] at [address] [place] [address]. The [facility] will report results directly to the client. 10/25/2024 10:20 PM EDT [facility] Comment:Testing performed by [facility], [facility], [address] [place] [address]. The [facility] report has been forwarded to the appropriate ordering location. Please refer to this report for patient results. Serum 10/25/2024 10:0 0 PM EDT 10/25/2024 10:20 PM EDT Leandra Og MD LAB BLOOD ORDERABLES F inal Result Performing Organization Address [facility] Co de Phone Number [facility] [address] [place] [address] * (ABNORMAL) Venous Blood Gas, Line/Syringe (10/25/2024 10:00 PM EDT) PH-Line Draw 7.38 7.32 - 7.42 10/25/2024 10:08 PM EDT [facility] PCO2-Line Draw 33(L) 41 - 51 mm Hg 10/25/2024 10:08 PM EDT [facility] PO2-Line Draw 33 25 - 40 mm Hg 10/25/2024 10:08 PM EDT [facility] HCO3-Line Draw 20(L) 24 - 28 mmol/L 10/25/2024 10:08 PM EDT [facility] CO2 Content-Line Draw 21(L) 25 - 29 mmol/L 10/25/2024 10:08 PM EDT [facility] Base Excess-Line Draw -5.0(L) -2.0 - 3.0 mmol/L 10/25/2024 10:08 PM EDT [facility] %HBO2-Line Draw 53.8 40.0 - 70.0 % 10/25/2024 10:08 PM EDT [facility] Carboxyhgb-Ludivina e Draw 1.9 % 10/25/2024 10:08 PM EDT [facility] Comment: CARBOXYHEMOGLOBIN (CO) REFERENCE RANGES: Non-Smokers: <2 % Smokers: <8 % TOXIC: >20 % Methemoglobin- Line Draw 0.2 0.0 - 1.5 % 10/25/2024 10:08 PM EDT [facility] Reduced Hemoglobin-Ludivina e Draw 44.1(H) 0.0 - 5.0 % 10/25/2024 10:08 PM EDT [facility] Venous, Line Draw 10/25/2024 10:00 PM EDT 10/25/2024 10:04 PM EDT us Leandra Og MD LAB BLOOD ORDERABLES F inal Result [facility] [address] * (ABNORMAL) POC Glucose Monitoring Device (10/25/2024 9:56 PM EDT) POC Glucose Monitoring Device 103(H) 70 - 100 mg/dL 10/25/2024 9:58 PM EDT [facility] Blood 10/25/2024 9:56 PM EDT 10/25/2024 9:57 PM EDT us Semaj Mcnair III, MD POINT OF CARE TEST ORDERABLES Final Result Performing Organization Address City/[facility]/ZIP Co de Phone Number [facility] [address] * ECG 12 lead (MUSE) (10/25/2024 9:34 PM EDT) 10/25/2024 9:34 PM EDT Narrative MUSE - 10/27/2024 10:08 AM EDT Ventricular Rate: 97 BPM Atrial Rate: 86 BPM QRS Duration: 106 ms QT: 532 ms QTc: 675 ms P [place]: 38 degrees R [place]: -29 degrees T [place]: 32 degrees Diagnosis Line: Critical Test Result: Long QTc , AV Block ^ SINUS RHYTHM WITH PREMATURE VENTRICULAR COMPLEXES ^ PROLONGED QT ^ NONSPECIFIC ST AND T WAVE CHANGES ^ ABNORMAL ECG ^ ^ Confirmed by MD HA, ERICK ([id number]) on 10/27/2024 10:08:26 AM Leandra Og MD ECG ORDERABLES Final Result Performing Organization Address City/[facility] Co de Phone Number MUSE * Hepatitis C RNA, Quant Reflex to Genotyp (10/25/2024 8:18 PM EDT) Pathologist [employer] Units Not Detected IU/mL 10/27/2024 11:03 AM EDT [facility] Comment:Test methodology for HCV RNA quantification is an FDA-approved nucleic acid amplification assay. The Lower Limit of Quantitation (LLOQ) is 15 IU/mL. The linear range of the assay is 15-100,000,000 IU/mL. The Limit of Detection (LoD) is 12.0 IU/mL for EDTA plasma. The reference range is Not Detected. IU log10 See Note log 10 IU/mL 10/27/2024 11:03 AM EDT [facility] Comment:HCV RNA not detected . Plasma 10/25/2024 8:18 PM EDT 10/25/2024 10:27 PM EDT us Leandra Og MD LAB BLOOD ORDERABLES F inal Result [facility] [address] [place] [address], [facility] * Urinalysis w/Rfl to Microscopic (10/25/2024 8:18 PM EDT) Color, UA Yellow Yellow,Straw 10/25/2024 10:38 PM EDT [facility] Clarity, UA Clear Clear 10/25/2024 10:38 PM EDT [facility] Specific [place], UA 1.010 1.005 - 1.035 10/25/2024 10:38 PM EDT [facility] pH, UA 6.0 5.0 - 8.0 10/25/2024 10:38 PM EDT [facility] Protein, UA Negative Negative mg/dL 10/25/2024 10:38 PM EDT [facility] Glucose, UA Negative Negative mg/dL 10/25/2024 10:38 PM EDT [facility] Ketones, UA Negative Negative mg/dL 10/25/2024 10:38 PM EDT [facility] LAB Bilirubin, UA Negative Negative 10/25/2024 10:38 PM EDT [facility] Blood, UA Negative Negative 10/25/2024 10:38 PM EDT [facility] Nitrite, UA Negative Negative 10/25/2024 10:38 PM EDT [facility] Urobilinogen, UA <2.0 0.2 - 1.9 mg/dL 10/25/2024 10:38 PM EDT [facility] Leukocyte Esterase, UA Negative Negative 10/25/2024 10:38 PM EDT [facility] Urine 10/25/2024 8:18 PM EDT 10/25/2024 10:35 PM EDT Narrative [facility] - 10/25/2024 10:38 PM EDT Microscopic testing is not performed when the dipstick is negative for blood, leukocyte, protein and nitrite. us Leandra Og MD URINE ORDERABLES Final Result [facility] [address] [place] [address], [facility] * Toxoplasma gondii antibody, IgG (10/25/2024 8:18 PM EDT) Toxoplasma Gondii IgG <3.0 0.0 - 7.1 IU/mL 10/27/2024 7:55 AM EDT [facility] Comment: Negative <7.2 Equivocal 7.2 - 8.7 Positive >8.7 Serum 10/25/2024 8:18 PM EDT 10/27/2024 8:06 AM EDT Narrative [facility] - 10/27/2024 8:06 AM EDT PERFORMED AT: [facility] [id number] REMOTE SENSING TECHNOLOGIST: Bassam Khalil, PhD PHONE: [phone] Leandra Og MD LAB BLOOD ORDERABLES F inal Result [facility] [address] [place] [address]. [address] * Antibody Screen (10/25/2024 7:46 PM EDT) Antibody Screen Negative 10/25/2024 10:41 PM EDT [facility] Blood 10/25/2024 7:46 PM EDT 10/25/2024 9:54 PM EDT Narrative [facility] - 10/25/2024 10:44 PM EDT Testing performed by [facility] Transfusion Service Ben Blake MD BLOOD BANK TEST ORDERABLES Fi nal Result Performing Organization Address [facility] Co de Phone Number [facility] [address] [place] [address]. [address] * ABO/Rh (10/25/2024 7:46 PM EDT) ABO Grouping O 10/25/2024 10:23 PM EDT [facility] Rh Type Positive 10/25/2024 10:23 PM EDT [facility] Blood 10/25/2024 7:46 PM EDT 10/25/2024 9:54 PM EDT Ben Blake MD BLOOD BANK TEST ORDERABLES Fi nal Result Performing Organization Address City/[facility]/ZIP Co de Phone Number [facility] [address] [place] [address] * (ABNORMAL) TEG-Standard Global Hemostasis (Rapid TEG with Heparin Effect, Contains a Baseline TEG) (10/25/2024 7:46 PM EDT) Citrated Kaolin Reaction Time (TEGHEPARINASE) 8.4 4.6 - 9.1 minutes 10/25/2024 10:49 PM EDT [facility] Citrated Rapid Teg Maximum Amplitude (TEGHEPARINASE) <40.0(L) 52.0 - 70.0 mm 10/25/2024 10:49 PM EDT [facility] Citrated Functional Fibrinogen Maximum Amplitude (TEGHEPARINASE) 6.7(L) 15.0 - 32.0 mm 10/25/2024 10:49 PM EDT [facility] Citrated Kaolin W/Heparinase Reaction Time (TEGHEPARINASE) 8.1 4.3 - 8.3 minutes 10/25/2024 10:49 PM EDT [facility] Citrated Kaolin K-Time (TEGHEPARINASE) 2.5(A) 0.8 - 2.1 minutes 10/25/2024 10:49 PM EDT [facility] Citrated Kaolin Angle (TEGHEPARINASE) 65.7(A) 63.0 - 78.0 degrees 10/25/2024 10:49 PM EDT [facility] Citrated Kaolin Maximum Amplitude (TEGHEPARINASE) <40.0(L) 52.0 - 69.0 mm 10/25/2024 10:49 PM EDT [facility] Citrated Functional Fibrinogen- Fibrinogen Level (TEGHEPARINASE) 159.5(L) 278.0 - 581.0 mg/dL 10/25/2024 10:49 PM EDT [facility] Whole Blood (Citrate) 10/25/2024 7:46 PM EDT 10/25/2024 10:15 PM EDT us Ben Blake MD LAB BLOOD ORDERABLES Final Re sult [facility] [address] [place] [address], [facility] documented in this encounter Visit Diagnoses Diagnosis Acute kidney injury superimposed on CKD ([facility])- Primary Prophylactic antibiotic Encounter for long-term [...] Intravenous, Every 3 hours, First dose on Itsh 10/30/24 at 1000, For 2 doses, In Emergencies, may administer as rapidly as needed to improve clinical status., Select indication for use: Hepatic Resection/Liver Transplantation, at 83.3 mL/hr New Bag 10/30/2024 5:45 PM EDT 250 mLs 83.3 mL/hr New Bag 10/30/2024 12:14 PM EDT 250 mLs 83.3 mL/hr AMPicillin 1 g in sodium chloride 0.9% 100 mL IVPB ([id number]) 1 g, Intravenous, at 200 mL/hr, Every 6 hours scheduled (4 times per day), First dose on Sun10/26/24 at 0630, For 2 days, Dosage may need to be adjusted for renal dysfunction. Full dose is 1g IV q6h Use [id number] Adapter - Mix Thoroughly Before Administration New [...] Once underlying shock sufficiently improved, defined as dld-[id number]-GL-[id number] r requirement ? 0.2 mcg/kg/min (norepinephrine equivalent) [...] 6:48 PM EDT 1 mg HYDROmorphone (DILAUDID) JOB HAND 6 mg/30 mL syringe *Standard Conc* Intravenous, Continuous, Starting on Sun10/27/24 at 1730, HIGH ALERT MEDICATION New Syringe/Cartridge 10/28/2024 3:59 AM EDT New Syringe/Cartridge 10/27/2024 7:09 PM EDT HYDROmorphone (DILAUDID) JOB HAND 6 mg/30 mL syringe *Standard Conc* Intravenous, [...] Sun10/27/24 at 0930, For 1 dose New 10/27/2024 10:10 AM EDT 4 g 25 [...] in sodium chloride 0.9 % 100 mL [id number] IVPB 50 mg, Intravenous, at 100 mL/hr, Every 24 hours, First dose on Sun10/27/24 at 1400, PROTECT FROM LIGHT FLUSH LINE w/NSS PRIOR TO ADMINISTRATION Use [id number] Adapter - Mix Thoroughly Before Administration Rate/Dose [...] paralyzed: Do not titrate - follow policy [id number]. Start infusion if unable to maintain goal [...] mL/hr 1856 (New Bag - Provider: Paulette Flannery, ЮЛИЯ) citric acid-sodium citrate (BICITRA) solution 30 mL (CANCELED) 30 mL, Oral, 2 times daily, First dose on Sun10/29/24 at 0900 0850 (Given - Provider: Paulette Flannery, ЮЛИЯ) eye ointment ophth oint Both Eyes, 2 times daily, First dose on Sun10/26/24 at 1230 1029 (Given - Provider: Paulette Flannery RN)7 (Not Given - Provider: Yvonne Gale RN [...] Flannery RN) 1141 (Given - Provider: Paulette Flannery, ЮЛИЯ) [...] Paulette Flannery, ЮЛИЯ)2120 (Given - Provider: Yvonne Gale RN) 1149 [...] Gale, ЮЛИЯ) 0543 (Given - Provider: Yvonne Gale RN)1527 [...] Paulette Flannery RN)1843 (Given - Provider: Vivi Newton, ЮЛИЯ)2340 (Given - Provider: Yvonne Gale, ЮЛИЯ - Comment: given at 184) 1018 (Given - Provider: Paulette Flannery RN)1344 (Given - Provider: Paulette Flannery RN)171 (Given - Provider: Paulette Flannery RN)211 (Given - Provider: Yvonne Gale RN) 1141 [...] NOT CRUSH 1843 (Given - Provider: Vivi Newton, ЮЛИЯ) 1018 (Given - Provider: Paulette Flannery RN) [...] Flannery RN)1344 (Given - Provider: Paulette Flannery RN)211 (Given - Provider: Yvonne Gale RN) 1141 [...] 10/30/24 at 1900, LEVEL 2 HAZARDOUS MEDICATION 0645 [...] Flannery RN) 0555 (Given - Provider: Yvonne Gale, ЮЛИЯ) [...] Yvonne Gale RN)1153 (Given - Provider: Paulette Flannery, ЮЛИЯ)1714 (Given - Provider: Paulette Flannery, ЮЛИЯ)2120 (Given - Provider: Yvonne Gale RN) 0123 [...] Vandana Vilchis RN)0616 (Given - Provider: Vandana Vilchis, ЮЛИЯ) Linked Groups Order Group 1: insulin lispro [...] documented as of this encounter Care Teams Stenographic Court Reporter Relationship Specialty Start Date End Date Enedina Mcguire NP [address] [place] [address] PCP - General Internal Medicine 10/05/24 Alicia Pantoja, RN Txp Post Coordinator Transplant Hepatology 10/28/24 documented as of this encounter
--- OUTSIDE RECORDS SUMMARY | 2024-10-25 22:30 | XMS_ITS | Encounter Summary ---
Author Organization [facility] Address [address] [place] [address] Care Team Providers Care Digital Art Director Name Role Phone Enedina Mcguire NP Primary Care Provider [phone] Source Comments This information has been disclosed [...] release of HIV test results or diagnoses. [id number] Reason for Visit * Auth/Cert (Routine) Specialty Diagnoses / Procedures Referred By Shane hernadez Referred To Contact Surgical Intensive Care Diagnoses Liver transplant recipient (CMS-HCC) cirrhosis and CKD Procedures LIVER-KIDNEY TRANSPLANT [facility] SICU [address] [place] [address] Phone: tel: Referral ID Status Reason Start Date Expiration Date Visits Re quested Visits Authorized [id number] 1 1 Encounter Details Date Type Department Care Team (Late st Contact Info) Description 10/25/2024 10:30 PM EDT - 10/26/2024 6:12 AM EDT Surgery [facility] PERIOP [address] [place] [address] Semaj Mcnair III, MD [address] [facility] [address] [place] [address] LIVER TRANSPLANT Surgery Details Date/Time [...] the past 12 months has th e [employer], gas, oil, or water Assurely threatened to shut off services in your [...] the past [address] [facility], were you homeless or living in a [...] Plata MD - 11/02/2024 2:04 PM EDT [facility] Liver Transplant Surgical Service Inpatient Discharge Summary Patient: Blair Gilbert : 1985 CSN: [id number] Date of Admission: 10/25/2024 Date of Discharge: [...] Case IDs Date Procedure Surgeon Location Status [id number] 10/25/24 LIVER TRANSPLANT Semaj Mcnair III, MD OR Comp [id number] 10/27/24 Donor Kidney Transplant , Back Bench [...] EXAM: US ABDOMEN LIMITED EXAM: US DUPLEX VIY-YWUYVK-WULUHVX COMPLETE INDICATION: Post-op liver transplant COMPARISON: None [...] visualized secondary to poor acoustic windows. The [place] right kidney measures 11.6 cm in length. [...] 30 tablet Refills: 0 naloxone 4 mg/actuation Festus Commonly known as: NARCAN Apply 1 spray [...] Your Medications These medications were sent to [facility] NAA Baum - [address] [facility] Mya 105Mal Deya Roque [address] mycophenolate 250 mg capsule tacrolimus 1 MG capsule These medications were sent to [facility] [address] [place] [id number] Hours: Sunday - Sunday: 8:00AM - 6:00PM [...] Case IDs Date Procedure Surgeon Location Status [id number] 10/25/24 LIVER TRANSPLANT Semaj Mcnair III, MD OR Comp [id number] 10/27/24 Donor Kidney Transplant , Back Bench [...] discharge. NEURO/PAIN - Patient placed on Dilaudid BUILDING SUPERINTENDENT once extubated, then transitioned to multi-modal pain [...] scheduled [place] [facility] [place] patient and recommended Home PT/OT, outpatient PT/OT only available. ENDO - A1C is 5.0. Pt was not on diabetic regimen prior to arrival. Patient developed steroid-induced hyperglycemia 2/2 steroid regimen. Discharged home on the following regimen: HDSSI. Patient met w/ early childhood educator aide prior to discharge. HEME - Post-operatively, monitored [...] Patient and family received post-transplant education from fashion coordinator as well as medication teaching from [...] 11/04/2024 8:40 AM LTRA SURGERY, [facility] LTRA HOX HOX 11/04/2024 10:10 AM LTRA HEPATORENAL HOX LTRA HOX HOX 11/25/2024 9:00 AM NAA Merida [facility] URO MAB MAB 12/02/2024 2:00 PM Bossman Huffman MD [facility] MARIANGEL MAB MAB 02/25/2025 10:50 AM Bruno Gonzalez MD KTSP HOX HOX Kenyetta Hartman, MS-[facility] SHAY PLATA MD 11/02/2024 12:50 PM [...] up appointments. Diet: Regular diet Drain/Dressing/Wound Care: [place] will be removed in clinic approximately 3-4 [...] kept under 2 gm/day. Please discuss withyour email marketing coordinator if you have any question about appropriate dose to take. Other Instructions: Call post-liver transplant clinic with questions [phone] or call [facility] at [phone] and ask for the liver fashion coordinator instrumentation specialist if you experience any of the [...] 11/04/2024 8:40 AM LTRA SURGERY, [facility] LTRA HOX HOX 11/04/2024 10:10 AM LTRA HEPATORENAL HOX LTRA HOX HOX 11/25/2024 9:00 AM NAA Merida [facility] URO MAB MAB 12/02/2024 2:00 PM Bossman Huffman MD [facility] MARIANGEL MAB MAB 02/25/2025 10:50 AM [...] EDT 11/02/2024 blood sugar diagnostic (GLUCOSE BLOOD) [facility] Use to test blood sugar up to 4 times a day. 100 strip 11 11/02/2024 10:20 AM EDT 10/27/2024 blood-glucose meter (TRUE METRIX GLUCOSE METER) [facility] Use to test [...] EDT 10/27/2024 lancets (ACCU-CHEK SOFTCLIX LANCETS) [facility] Use to test [...] capsule 5 10/27/2024 naloxone (NARCAN) 4 mg/actuation Festus Apply 1 spray in one nostril if [...] tacrolimus and mycophenolate which were dispensed through [facility] per insurance requirements. Patient's [...] fair Expected caregiver involvement?: is primary med fleet maintenance manager Need for additional education in clinic?: routine reinforcement only Future medications to be obtained from, if known (select one): Tac/MMF to be filled from [facility] Financial concerns (if [...] mL, R-2 lancets (ACCU-CHEK SOFTCLIX LANCETS) [facility] Use to test [...] R-0 pen needle, diabetic 32 gauge x Ndle [...] Disp-30 tablet, R-0 naloxone (NARCAN) 4 mg/actuation Festus Apply 1 spray in one nostril if [...] Comments: Reason for Stopping: Eduardo Gamino, Pharm.D., [facility] Clinical Specialist Contact via Epic Secure Chat * Froylan Hendrickson MD - 11/01/2024 8:04 AM EDT Liver Transplant Surgery Progress Note Name: Blair Gilbert CSN: [id number] Date: 11/01/2024 8:06 AM OR Date: 10/25/2024 [...] at 10/31/2024 4:38 PM EDT US Duplex Fsm-Xzi-Uonjfyt Comp Result Date: 10/31/2024 IMPRESSION: RIGHT UPPER [...] 10/25/2024 - 10/27/2024. Plan: Liver transplant recipient ([facility]) [Z94.4] Neuro: - Multimodal pain control: tylenol, [...] 3:24 PM EDT TXP - Follow Up [facility] Medical Nutrition Therapy Transplant Brief Note Diet [...] very high calorie protein supplement ([facility] and [facility] only) Pertinent Information: Pt seen for brief [...] Based on DBW of 93.1 kg Kcals/day: 6354-8691 (25-30 kcals/kg) Protein g/day: 140-190 (1.5-2.0 g/kg) [...] Dietitian - Solid Organ Transplant Contact via [employer] Chat * Keon Dobson - 10/31/2024 2:35 PM EDT [facility] Spiritual Care Volunteer Visit PATIENT NAME: Blair Gilbert ROOM:8025/80 Denominational Affiliation:Orthodox Blair Gilbert was visited by a volunteer today. No needs requiring a visit from a staff animal impersonator were expressed at that time. Care Provided: Communion, Prayer/ blessing Please page our service at [phone] as needs arise for patient and/or family. Fr Dean Dobson Orthodox animal impersonator Spiritual Care Dept * Brittany Horne PT [...] transplant recipient (CMS-HCC) [Z94.4] Date: 10/31/2024 Room: [facility] Reviewed Pertinent hospital course: Yes Hospital [...] issued by OT: Long-handled sponge, Sock aid, Pantograph Transferrer, Other (comment) Equipment issued by OT comment: leg aircraft designer Assessment Assessment: Decreased ADL status, Decreased IADLs, [...] IADL task (Goal met and continued 10/31) Snf Goal : Pt will complete bathing assessment and transfer superintendent marine oil terminal goal to be met in: 2 weeks [...] Patient Active Problem List Diagnosis Decompensated cirrhosis ([facility]) Acute kidney injury superimposed on CKD ([facility]) Alcohol use disorder Metabolic encephalopathy Hypertension Other hyperlipidemia Thrombocytopenia ([facility]) Renal mass, left Abdominal pain Hypokalemia CKD (chronic kidney disease) stage 4, GFR 15-29 ml/min ([facility]) Metabolic acidosis with normal anion gap and bicarbonate losses GERD (gastroesophageal reflux disease) Hypothyroidism Itching Anemia BRBPR (bright red blood per rectum) SBP (spontaneous bacterial peritonitis) ([facility]) C Diff Diarrhea [...] Date 10/30/24 07 - 10/31/24 0659 10/31/24 0700 - 11/01/24 0659 Shift 3741-5386 9306-6151 9451-7080 24 Hour Total 7013-2767 3418-7536 7719-4874 24 Hour Total INTAKE P.O. 240 240 P.O. 240 240 Shift Total(mL/kg) 240(1.9) 240(1.9) OUTPUT Urine(mL/kg/hr) 1850(1.8) 600(0.6) 600(0.6) 3050(1) 350 350 Urine 800 220 313 8518 350 350 Urine Occurrence 2 x 2 [...] BILIRUBIN TOTAL 2.7* BILIRUBIN DIRECT 1.57* Lab 06/17/25 1109 10/25/24 2343 10/25/24 2217 PROTHROMBIN TIME [...] with further concerns Lavell Kramer MD 10/31/[phone] * Priti Geiger CNP - 10/31/2024 10:06 AM EDT Liver Transplant Surgery Progress Note Name: Blair Gilbert CSN: [id number] Date: 10/31/2024 10:06 AM OR Date: 10/25/2024 [...] 10/28/24 1109 LACTATE 0.3* Imaging US Duplex Zfq-Ndz-Uoiylfr Comp Result Date: 10/28/2024 IMPRESSION: ABDOMINAL ULTRASOUND [...] 10/25/2024 - 10/27/2024. Plan: Liver transplant recipient ([facility]) [Z94.4] Neuro: - Multimodal pain control: tylenol, [...] Transplant Nephrology Progress Note Patient: Blair Gilbert [id number] Date of Admit: 10/25/2024. 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 Lauren Santos, SAMSON, SUPERVISOR PLEATING, MOVIE WRITER- Transplant Nephrology [phone] Preferred contact: secure chat The HPI, ROS, [...] 0659 10/30/24 07 - 10/31/24 0659 Shift 8259-1987 6837-2341 1396-6787 24 Hour Total 0724-5001 6177-3155 9744-2578 24 Hour Total INTAKE P.O. 240 240 480 P.O. 240 240 480 IV Piggyback 87.2 87.2 Volume (mL) (micafungin (MYCAMINE) 50 mg in sodium chloride 0.9 % 100 mL Izwo9Gfv IVPB) 87.2 87.2 Shift Total(mL/kg) 240(2) 327.2(2.7) 567.2(4.4) OUTPUT Urine(mL/kg/hr) 600(0.6) 1175(1.2) 450(0.4) 2225(0.7) 550 550 Output (mL) (IUC (Berkowitz) Triple-lumen (3-Way) 18 Fr.) 600 5179 167 0168 550 550 Drains 175 245 100 520 [...] month of prophylaxis Lavell Kramer MD 10/30/[phone] * Priti Geiger CNP - 10/30/2024 10:36 AM EDT Liver Transplant Surgery Progress Note Name: Blair Gilbert CSN: [id number] Date: 10/30/2024 10:37 AM OR Date: 10/25/2024 [...] 1109 LACTATE 0.5 0.3* Imaging US Duplex Rko-Tkv-Ozituwz Comp Result Date: 10/28/2024 IMPRESSION: ABDOMINAL ULTRASOUND [...] 10/25/2024 - 10/27/2024. Plan: Liver transplant recipient ([facility]) [Z94.4] Neuro: - Multimodal pain control: tylenol, [...] Transplant Nephrology Progress Note Patient: Blair Gilbert [id number] [id number] Date of Admit: 10/25/2024. 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 Lauren Santos, DNP, SUPERVISOR PLEATING, MOVIE WRITER- Transplant Nephrology [phone] Preferred contact: secure chat The HPI, ROS, [...] EDT Pt seen, examined, and discussed with DEALER ACCOUNT MANAGER on 10/30/2024. reviewed the chart including [...] 3:36 PM EDT TXP - Follow Up [facility] Medical Nutrition Therapy Follow-Up Diet Order/Nutrition Support: [...] Based on DBW of 93.1 kg Kcals/day: 9880-0707 (25-30 kcals/kg) Protein g/day: 140-190 (1.5-2.0 g/kg) [...] Dietitian - Solid Organ Transplant Contact via [employer] Chat * Anita Crystal, PT - 10/29/2024 2:04 PM EDT Physical Therapy Initial Assessment Name: Blair Gilbert : 1985 Attending Physician: Semaj Mcnair III, MD Admission Diagnosis: Liver transplant recipient (CMS-HCC) [Z94.4] Date: 10/29/2024 Room: [place] [address] [address] Reviewed Pertinent hospital course: Yes Hospital Course [...] with functional mobility at: 10 or less Snf Goal : Pt will ambulate 250' mod [...] Patient Active Problem List Diagnosis Decompensated cirrhosis ([facility]) Acute kidney injury superimposed on CKD ([facility]) Alcohol use disorder Metabolic encephalopathy Hypertension Other hyperlipidemia Thrombocytopenia ([facility]) Renal mass, left Abdominal pain Hypokalemia CKD (chronic kidney disease) stage 4, GFR 15-29 ml/min ([facility]) Metabolic acidosis with normal anion gap and bicarbonate losses GERD (gastroesophageal reflux disease) Hypothyroidism Itching Anemia BRBPR (bright red blood per rectum) SBP (spontaneous bacterial peritonitis) ([facility]) C Diff Diarrhea C. difficile diarrhea Neck pain with history of cervical spinal surgery * Shanel Pabon, OT - 10/29/2024 1:23 PM EDT Occupational Therapy Initial Assessment Name: Blair Gilbert : 1985 Attending Physician: Semaj Mcnair III, MD Admission Diagnosis: Liver transplant recipient ([facility]) [Z94.4] Date: 10/29/2024 Room: [place] [address] [address] Reviewed Pertinent hospital course: Yes Hospital Course [...] Intervention(s): Ambulation/increased activity;Repositioned Therapist reported pain to: chemical process analyst Oxygen Supplemental Oxygen Supplemental Oxygen: None (Room [...] distance ambulation in prep for IADL task Computer Assistant Goal : Pt will complete bathing assessment [...] liver (CMS-HCC) Esophageal varices (CMS-HCC) Hepatorenal syndrome ([facility]) Hypertension Other hyperlipidemia 07/26/2024 Renal cell carcinoma ([facility] Thrombocytopenia ([facility]) Thyroid disease Past Surgical History Past Surgical [...] packing; Surgeon: Semaj Mcnair III, MD; Location: [facility]; Service: Transplant; Laterality: N/A; [1] Patient Active Problem List Diagnosis Decompensated cirrhosis ([facility]) Acute kidney injury superimposed on CKD ([facility]) Alcohol use disorder Metabolic encephalopathy Hypertension Other hyperlipidemia Thrombocytopenia ([facility]) Renal mass, left Abdominal pain Hypokalemia CKD (chronic kidney disease) stage 4, GFR 15-29 ml/min ([facility]) Metabolic acidosis with normal anion gap and bicarbonate losses GERD (gastroesophageal reflux disease) Hypothyroidism Itching Anemia BRBPR (bright red blood per rectum) SBP (spontaneous bacterial peritonitis) ([facility]) C Diff Diarrhea C. difficile diarrhea Neck pain with history of cervical spinal surgery * Caron Santos CNP - 10/29/2024 10:30 AM EDT Images from the original note were not included. Transplant Nephrology Progress Note Patient: Blair Gilbert [id number] SICU-28/USIC-28 Date of Admit: 10/25/2024. 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 Lauren Santos, DNP, SUPERVISOR PLEATING, MOVIE WRITER- Transplant Nephrology [phone] Preferred contact: secure chat The HPI, ROS, [...] Surgery Progress Note Name: Blair Gilbert CSN: [id number] Date: 10/29/2024 10:08 AM OR Date: 10/25/2024 [...] interval not displayed. Recent Labs 10/27/24171210/28/243 10/28/24 1109 INR 1.1 1.1 1.1 PROTIME [...] LACTATE 0.4* 0.5 0.3* Imaging US Duplex Cga-Ybw-Ocpwpri Comp Result Date: 10/28/2024 IMPRESSION: ABDOMINAL ULTRASOUND [...] at 10/27/2024 10:38 AM EDT US Duplex Jon-Uik-Zsogjmp Comp Result Date: 10/27/2024 IMPRESSION: RIGHT UPPER [...] to Michela Szymanski RN via telephone by gA Garcia MD on 10/27/2024 7:20 AM EDT. [...] 10/25/2024 - 10/27/2024. Plan: Liver transplant recipient ([facility]) [Z94.4] Neuro: - Multimodal pain control: tylenol, [...] SQH, SCDs DISPO: floor KENYETTA HARTMAN, MS4 [facility] Surgery 10:08 AM 10/29/2024 Cosigned by Lydia [...] Date 10/28/24699 - 10/29/2465810/29/24699 - 10/30/24658 Shift 6437-9269 5701-3077 0573-0317 24 Hour Total 4929-1203 4958-5467 7630-6021 24 Hour Total INTAKE P.O. 240 0 [...] IV infusion) 253.9 374.7 775.6 1404.2 Blood 2925 180 1995 Albumin 750 750 Volume (Transfuse RBC Transfusion Rate: Per dept routine) 310 310 Volume (Transfuse RBC Transfusion Rate: Per dept routine) 271 271 IV Piggyback 918.4 059 48 1591.4 Volume (mL) (micafungin (MYCAMINE) 50 mg in sodium chloride 0.9 % 100 mL Irwa9Stp IVPB) 99.9 99.9 Volume (mL) (albumin human [...] month of prophylaxis Lavell Kramer MD 10/29/[phone] * John Moreno MD - 10/29/2024 6:47 AM EDT SURGICAL ICU PROGRESS NOTE 10/29/2024 6:47 AM Name: Blair Gilbert CSN: [id number] HPI: Blair Gilbert is a 39 y.o. [...] (100 mg total) by mouth daily. Yes 6/13/2025at 9:00 PM ursodioL (ACTIGALL) 300 mg capsule [...] to 4 times a day. DEXCOM G7 TOILET AND LAUNDRY SOAP SUPERVISOR Misc Use reader as directed. DEXCOM G7 [...] times a day. naloxone (NARCAN) 4 mg/actuation Festus Apply 1 spray in one nostril if [...] 37 37 35 PO2ART 245* 182* 92 OUW1HPV 22 21* 21* BEART -4.2* -4.8* -4.6* [...] at baseline or with provocation, shows no zuuar-ms-ytpa atrial level shunt. - Pulmonary arteries: Systolic [...] Home pantoprazole 40mg daily, continue Last BM: SPACE CONTROL AGENT - suppository today Bowel regimen: Miralax today, [...] results for input(s): TEGANGLE , TEGKTIME , LNYVRHNP11 , TEGMAXAMPL , TEGRTIME , CBMZ in [...] - TITRATABLE NURSING PROTOCOL (HYPERGLYCEMIA) 0-28 Units/hr Continuous6/ 10/26/2024 Admin Instructions: FOR O.R. USE only. [...] in sodium chloride 0.9 % 100 mL Gucb3Dnv IVPB 50 mg Every 24 hours 10/27/2024 -- Admin Instructions: PROTECT FROM LIGHT FLUSH LINE w/NSS PRIOR TO ADMINISTRATION Use Rcel2Cyz Adapter - Mix Thoroughly Before Administration Route: [...] instability DC today Arterial Line? R radial [place]- DC today Urinary Catheter? Berkowitz - Reason: [...] BID Continuous Infusions: HYDROmorphone 6 mg/30 mL BUILDING SUPERINTENDENT norepinephrine 4 mcg/min (10/27/24 2318) sodium chloride [...] 0659 10/28/24 07 - 10/29/24 0659 Shift 8909-4604 2973-9991 7363-0928 24 Hour Total 5783-3378 2013-9031 0933-9157 24 Hour Total INTAKE P.O. 0 120 [...] in sodium chloride 0.9 % 100 mL Cuox6Nom IVPB) 100 100 Volume (mL) (albumin human 5%) 126 126 Volume (mL) (potassium chloride (KCl)/Sterile water 50 mL 20 mEq/50 mL IVPB 20 mEq) 100 100 Volume (mL) (AMPicillin 1 g in sodium chloride 0.9% 100 mL IVPB (Fdlg2Okg)) 100.1 57 42.9 200 Volume (mL) (mycophenolate (CELLCEPT) 500 mg in dextrose 5% in water (D5W) 50 mL IVPB) 50 5.3 55.3 Shift Total(mL/kg) 2079.3(17) 1161(9.5) 787.3(6.4) 4027.6(32.9) OUTPUT Urine(mL/kg/hr) 2195(2.2) 1000(1) 900(0.9) 4095(1.4) 490 490 Urine 360 360 Output (mL) (IUC (Berkowitz) Triple-lumen (3-Way) 18 Fr.) 1835 9045 242 3581 490 490 Emesis/NG output 50 50 Drainage [...] month of prophylaxis Lavell Kramer MD 10/28/[phone] * Caron Santos CNP - 10/28/2024 9:00 AM EDT Images from the original note were not included. Transplant Nephrology Progress Note Patient: Blair Gilbert [id number] SICU-28/USIC-28 Date of Admit: 10/25/2024. 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 Lauren Santos, SAMSON, SUPERVISOR PLEATING, MOVIE WRITER- Transplant Nephrology [phone] Preferred contact: secure chat The HPI, ROS, [...] EDT Pt seen, examined, and discussed with DEALER ACCOUNT MANAGER on 10/28/2024. reviewed the chart including the labs and imaging studies. My additional comments below. 39 y.o. 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 S/p SLK 10/25-10/26 Has great UOP 4.2L Aaron Gonzalez MD, MEd, FASN * Shay Plata MD - 10/28/2024 7:41 AM EDT Liver Transplant Surgery Progress Note Name: Blair Gilbert CSN: [id number] Date: 10/28/2024 11:05 AM OR Date: 10/25/2024 - 10/27/2024 Subjective: 1 Day Post-Op Received one unit pRBCs overnight On low dose levo this morning Increasing tachycardia Reports worsening pain, on BUILDING SUPERINTENDENT Tolerated sips of clears No nausea/vomiting, no [...] Oral BID Continuous: HYDROmorphone 6 mg/30 mL BUILDING SUPERINTENDENT norepinephrine Stopped (10/28/24 0637) sodium chloride 0.9 [...] at 10/27/2024 10:38 AM EDT US Duplex Src-Mie-Cxnexdr Comp Result Date: 10/27/2024 IMPRESSION: RIGHT UPPER [...] 10/25/2024 - 10/27/2024. Plan: Liver transplant recipient ([facility]) [Z94.4] Neuro: - Multimodal pain control: dilaudid BUILDING SUPERINTENDENT, tylenol, robaxin. PRN dilaudid for breakthrough CV: [...] SICU SHAY PLATA MD, MS4 [facility] 11:05 AM 10/28/2024 Cosigned by Lydia [...] 10/28/2024 6:17 AM Name: Blair Gilbert CSN: [id number] HPI: Blair Gilbert is a 39 y.o. [...] to 4 times a day. DEXCOM G7 TOILET AND LAUNDRY SOAP SUPERVISOR Misc Use reader as directed. DEXCOM G7 [...] times a day. naloxone (NARCAN) 4 mg/actuation Festus Apply 1 spray in one nostril if [...] Oral BID Continuous: HYDROmorphone 6 mg/30 mL BUILDING SUPERINTENDENT insulin regular in 0.9 % sodium chloride [...] 37 37 35 PO2ART 245* 182* 92 BZV4PDE 22 21* 21* BEART -4.2* -4.8* -4.6* [...] at baseline or with provocation, shows no yidcf-qm-wqyk atrial level shunt. - Pulmonary arteries: Systolic [...] while intubated,convert to PO today Last BM: SPACE CONTROL AGENT Bowel regimen: Miralax today, hold senna til [...] ml IV Fluids: HYDROmorphone 6 mg/30 mL BUILDING SUPERINTENDENT insulin regular in 0.9 % sodium chloride, Last Rate: 2.5 Units/hr (10/27/24 1900) norepinephrine, Last Rate: 4 mcg/min (10/27/24 2318) sodium chloride 0.45% (1/2 NS), Last Rate: Stopped (10/27/24 1301) sodium chloride 0.9 %, Last Rate: Stopped (10/27/24251) sodium chloride 0.9 %, Last Rate: 100 [...] Needs K today RENAL/ Recent Labs 10/27/24 17110/28/24410/28/24412 BUN 61* 59* 58* CREATININE 2.42* 2.42* [...] results for input(s): TEGANGLE , TEGKTIME , WLRFHXWZ35 , TEGMAXAMPL , TEGRTIME , CBMZ in [...] in sodium chloride 0.9% 100 mL IVPB (Niet8Umy) (Completed) 1 g Every 6 hours scheduled 10/26/2024 10/28/2024 Admin Instructions: Dosage may need to be adjusted for renal dysfunction. Full dose is 1g IV q6h Use Kwug9Ceh Adapter - Mix Thoroughly Before Administration Notes to Pharmacy: On order desk clerk estimated creatinine clearance is 35.9 mL/min [...] in sodium chloride 0.9 % 100 mL Foei4Eww IVPB 50 mg Every 24 hours 10/27/2024 -- Admin Instructions: PROTECT FROM LIGHT FLUSH LINE w/NSS PRIOR TO ADMINISTRATION Use Qxgr2Dun Adapter - Mix Thoroughly Before Administration Route: [...] R IJ Mac Arterial Line? R radial Bellflower Urinary Catheter? Berkowitz - Reason: Adequate I/O [...] Other (See Comments) Became Manic * Farhana Ron, RXT - 10/27/2024 1:38 PM EDT Caprini [...] Risk Score of [address] [facility] transplant protocol, I recommend discharging on [...] the patient as needed. Hillary Fernandes PharmD, [facility] Solid Organ Transplant Clinical Specialist Contact via [employer] Secure Chat Preferred O. [phone] * Chinedu Almeida RRT - 10/27/2024 1:10 [...] PCO2 37 10/27/2024 PO2ART 245 (H) 10/27/2024 PGL6ANW 22 10/27/2024 BEART -4.2 (L) 10/27/2024 VJT3GSH 96.5 10/27/2024 G6VYXMBP 100 10/27/2024 Based on this SBT assessment [...] Surgery Progress Note Name: Blair Gilbert CSN: [id number] Date: 10/27/2024 11:40 AM OR Date: 10/25/2024 - 10/27/2024 Subjective: * Day of Surgery * Remains intubated in SICU Sedated but appropriately nods to questions No acute distress Objective: BP 100/48 Pulse 89 Temp 99 ??F (37.2 ??C) ([place]) Resp 9 Ht 6' 4 (1.93 m) [...] at 10/27/2024 10:38 AM EDT US Duplex Gwo-Lbc-Vrxowoe Comp Result Date: 10/27/2024 IMPRESSION: RIGHT UPPER [...] 10/27/2024. Problem List[1] Plan: Liver transplant recipient ([facility]) [Z94.4] Neuro: - Propofol/fentanyl CV: - Wean [...] DISPO: SICU KENYETTA HARTMAN, MS4 [facility] 11:40 AM 10/27/2024 [1] Patient Active Problem List Diagnosis Decompensated cirrhosis ([facility]) Acute kidney injury superimposed on CKD ([facility]) Alcohol use disorder Metabolic encephalopathy Hypertension Other hyperlipidemia Thrombocytopenia ([facility]) Renal mass, left Abdominal pain Hypokalemia CKD (chronic kidney disease) stage 4, GFR 15-29 ml/min (CMS-HCC) Metabolic acidosis with normal anion gap and bicarbonate losses GERD (gastroesophageal reflux disease) Hypothyroidism Itching Anemia BRBPR (bright red blood per rectum) SBP (spontaneous bacterial peritonitis) ([facility]) C Diff Diarrhea C. difficile diarrhea [...] 10/27/2024 7:16 AM Name: Blair Gilbert CSN: [id number] HPI: Blair Gilbert is a 39 y.o. [...] the morning and at bedtime. lancets [facility] Use to test blood sugar up to 4 times a day. Dx: 9.65. Brand per pharmacy / insurance preference. methocarbamoL (ROBAXIN) 500 MG tablet Take 1 tablet (500 mg total) by mouth 3 times a day. mycophenolate (CELLCEPT) 250 mg capsule Take 2 capsules (500 mg total) by mouth 2 times a day. naloxone (NARCAN) 4 mg/actuation Festus Apply 1 spray in one nostril if [...] 47* 36 37 PO2ART 127* 91 137* STX3CXT 21* 22 20* BEART -5.4* -3.9* -6.4* [...] at baseline or with provocation, shows no bnbce-dz-kogf atrial level shunt. - Pulmonary arteries: Systolic [...] IV pantoprazole while intubated, NPO Last BM: SPACE CONTROL AGENT Bowel regimen: Senna/Miralax when able Nausea: Zofran [...] 10/27/2024 0715 Gross per 24 hour Intake 98118.82 ml Output 7060 ml Net 6224.82 ml [...] 0.9 %, Last Rate: Stopped (10/27/24 0252) vasopressin, Last Rate: 0.03 Units/min (10/27/24 0140) [...] results for input(s): TEGANGLE , TEGKTIME , FOWKYMHO34 , TEGMAXAMPL , TEGRTIME , CBMZ in [...] in sodium chloride 0.9% 100 mL IVPB (Zpdz3Jpo) 1 g Every 6 hours scheduled Admin Instructions: Dosage may need to be adjusted for renal dysfunction. Full dose is 1g IV q6h Use Psoi6Jen Adapter - Mix Thoroughly Before Administration Notes to Pharmacy: On order desk clerk estimated creatinine clearance is 35.9 mL/min (A) (based on SCr of 3.87 mg/dL (H)). Route: Intravenous Linked Group 1: Placed in And Linked Group cefTRIAXone (ROCEPHIN) 2 g in sodium chloride 0.9 % 100 mL Ncab9Kmd Continuous - One Step Medications Only 10/27/2024 [...] R IJ Mac Arterial Line? R radial Bellflower Urinary Catheter? Berkowitz - Reason: Adequate I/O [...] Solid Organ Transplant Clinical Specialist Contact via [employer] Secure Chat Preferred * Simeon Guzman RN [...] 10/26/2024 0725 Gross per 24 hour Intake 60359.32 ml Output 2075 ml Net 02632.32 ml Consitutional: Intubated/sedated HEENT: Mucous membranes moist CV: Regular rhythm Pulm: Equal chest rise bilaterally Abdomen: Soft, incision with overlying temporary closure MSK: No obvious deformities Neuro: Sedated Assessment/Plan: Blair iGlbert is a 39 y.o. male with ESLD [...] the SAWYER/resident team. I agree with the SAWEYR/resident???s findings and plan as documented in the [...] History and Physical Patient: Blair Gilbert CSN: [id number] History CC: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 naloxone (NARCAN) 4 mg/actuation Festus Apply 1 spray in one nostril if [...] Resource Strain: Low Risk (07/09/2024) Received from [facility] Overall Financial Resource Strain (CARDIA) Difficulty [...] No Physical Activity: Unknown (07/14/2024) Received from [facility] Exercise Vital Sign Days of Exercise per Week: Patient unable to answer Minutes of Exercise per Session: Not on file Stress: Patient Unable To Answer (07/14/2024) Received from [facility] [place] [employer] - Occupational Stress Questionnaire [...] -- 5.4 ALBUMIN 3.2* 3.1* Invalid input(s): [facility] Other labs: Imaging Studies No results found. [...] SICU post-op. LEANDRA OG MD [facility] Liver Transplant Pager: [phone] 8:24 PM 10/25/2024 Cosigned by Semaj [...] Name: Blair Gilbert Date: 1985 Billing #: [id number] Date of Procedure: 10/25/2024 Diagnosis: End Stage Renal Disease Procedure: 1. Donor Kidney Transplant 2. Back Bench Preparation Donor Kidney 3. Baseline Kidney transplant biopsy 4. Insertion of Indwelling Stent 5. Removal of Perihepatic packing Surgeons * Flaquito Ba MD Telephone Installer MD Shayan Findings: Low Hockey stick incision [...] donor was ABO O and UNOS ID [id number], Match Run [id number] ([facility]). This donor was a Donor after cardiac [...] was then wanded with the lap detection child center assistant. The incision was ex tented [...] and closure. Flaquito Ba MD Transplant Surgeon account strategist * Flaquito Ba MD - 10/27/2024 6:15 AM EDT TRANSPLANT KIDNEY with bile duct reconstruction Brief Op Note Blair Gilbert 10/27/2024 Pre-op Diagnosis: Acute kidney injury superimposed on CKD (CMS-HCC) [N17.9, N18.9] Post-op Diagnosis: same Procedure(s): TRANSPLANT KIDNEY Surgeon(s): MD Semaj Washington III, MD Anesthesia: General Endotracheal Staff: Chemistry Faculty Member: Chinedu Quinn RN Scrub Person: ST Angela Fellow: Kemar Sahni MD 2nd Chemistry Faculty Member: Marty Clark RN 3rd Chemistry Faculty Member: Candis Mcdaniel RN FINDINGS Berkowitz 3 day Drains: Intraabdominal (perihepatic) UNOS ID [id number], Match Run [id number] Kid WIT 27 min Kid CIT 33 [...] (Berkowitz) Triple-lumen (3-Way) 18 Fr. (Active) Status [place] Drainage 10/26/241999 Collection Container Standard drainage bag [...] Washington III, MD Anesthesia: General Endotracheal Staff: Chemistry Faculty Member: Chinedu Quinn RN Relief Chemistry Faculty Member: Michela Amos RN Relief Scrub: Stephani Blake RN Scrub Person: ST Angela Fellow: Kemar Sahni MD 2nd Chemistry Faculty Member: Marty Clark RN 3rd Chemistry Faculty Member: Candis Mcdaniel RN Estimated Blood Loss: 300 [...] (Berkowitz) Triple-lumen (3-Way) 18 Fr. (Active) Status [place] Drainage 10/26/241999 Collection Container Standard drainage bag [...] day Drains: 2 Intraabdominal (perihepatic) UNOS ID [id number], Match Run [id number] Donor: young DCD NRP Kid WIT 27 [...] - 10/27/2024 12:00 AM EDT [facility] PATIENT NAME: BLAIR GILBERT DATE OF : 1985 CSN: [id number] PHYSICIAN: Semaj Mcnair III, MD ADMIT DATE: 10/25/2024 DICTATED BY: Semaj Mcnair III, MD SURGERY DATE: 10/27/2024 OPERATIVE REPORT SURGEON: Semaj Mcnair III, MD INBOUND TELEMARKETER SURGEON: Kemar Sahni MD. PREOPERATIVE DIAGNOSIS: Open [...] were made hemostatic with the argon beam community development worker. We assessed the flows of the [...] a mucocele formation. We then performed a xaja-ad-ybzv choledochocholedochostomy in an end to end fashion [...] small umbilicalhernia that was closed with a vlbgrc-og-kiwhd 0 PDS suture. At this point, we [...] complications. SEMAJ MCNAIR III, MD RCQ/AQ JOB#: [id number] * Semaj Mcnair III, MD - 10/26/2024 7:00 AM EDT Patient Name: Blair Gilbert Date: 1985 Billing #: [id number] Date of Procedure: 10/25/2024 - 10/26/2024 Diagnosis: Chronic Hepatic Failure without coma Procedure: 1. Orthotopic Liver Transplant 2. Back Bench Preparation Donor Liver 3. Temporary portocaval shunt 4. Perihepatic packing for control of hemorrhage 5. Placement of external choledochal stent 6. Temporary abdominal closure Attending surgeons: Semaj Mcnair III, MD Telephone Installer Surgeon(s): Sveta Judge MD Findings: Whole organ placed in piggyback fashion with suprahepatic cava of donor to common orifice of all three hepatic veins for IVC anastomosis. Donor main portal vein to recipient main portal vein. Donor common hepatic artery to recipient right hepatic artery. Temporary abdominal with perihepatic packing for control of hemorrhage. Externalization of bile duct with 8 Angolan pediatric feeding tube. Portal Flow Modulation No [...] This donor was ABO O and UNOSID [id number], Match Run [id number]. This was a 42-year-old donation after circulatory [...] do a temporary abdominal closure. An 8 Angolan pediatric feeding tube was brought through the [...] the liver and 1 line overlying the chalry hepatis. We then did a temporary abdominal [...] EDT LIVER TRANSPLANT Brief Op Note Blair Justin 10/25/2024 - 10/26/2024 Pre-op Diagnosis: Alcoholic cirrhosis of liver (CMS-HCC) Post-op Diagnosis: same Procedure(s): LIVER TRANSPLANT Surgeon(s): MD Sveta Alves III, MD Anesthesia: General Staff: Chemistry Faculty Member: Mak Maher RN; Marty Clark RN Scrub Person: ST Angela Resident: Thuy Leon MD janitorial manager: Jose Daniel Arana RRT Estimated Blood [...] Number of days: 5 Surgery Information: -UNOS#: [id number] -ABO: O to O -Recipient: SLK candidate [...] 1:19 PM EDTAssociated Order(s): IP CONSULT TO UNIFORM MAKER [facility] Transplant Discharge Education Note Assessment: Received referral [...] Gomez, MSN, RN, NPD- Diabetes Education Office [phone] Schedule: M-F 8:00am-4:30pm * Ben Weiss RD - 10/27/2024 4:06 PM EDTAssociated Order(s): IP CONSULT TO NUTRITION SERVICES; IP CONSULT TO NUTRITION SERVICES TXP - Initial [facility] Medical Nutrition Therapy Reason(s) for Completion: Physician/Nursing [...] I/O: +23.2L net volume. Last BM Date: (SPACE CONTROL AGENT). Admit Weight: 270 lb (122.5 kg) Current Weight: (!) 270 lb (122.5 kg) Pertinent Labs: Recent Labs 10/26/242 10/27/24 0013 10/27/24 1440 WBC 10.0 5.0 5.8 HGB 10.5* 8.5* 7.5* HCT 30.2* 23.9* 21.5* PLT 48* 35* 50* Recent Labs 10/26/242 10/27/24 0013 10/27/24 0800 NA 142 141 [...] Based on DBW of 93.1 kg Kcals/day: 3799-3356 (25-30 kcals/kg) Protein g/day: 140-190 (1.5-2.0 g/kg) [...] Dietitian - Solid Organ Transplant Contact via [employer] Chat * Lavell Kramer MD - 10/27/2024 11:09 AM EDTAssociated Order(s): INPATIENT CONSULT TO TRANSPLANT INFECTIOUS DISEASES Infectious Disease Consultation Patient: Blair Gilbert CSN: [id number] Assessment & Plan 39 y.o. M s/p [...] blood cx's if febrile Lavell Kramer MD [phone] Chief Complaint Long Qtc History of Present [...] Resource Strain: Low Risk (07/09/2024) Received from [facility] Overall Financial Resource Strain (CARDIA) Difficulty [...] No Physical Activity: Unknown (07/14/2024) Received from [facility] Exercise Vital Sign Days of Exercise per Week: Patient unable to answer Minutes of Exercise per Session: Not on file Stress: Patient Unable To Answer (07/14/2024) Received from [facility] [place] [employer] - Occupational Stress Questionnaire Feeling of Stress : Patient unable to answer Social Connections: Patient Unable To Answer (07/14/2024) Received from [facility] Social Connection and Isolation [...] to 4 times a day. DEXCOM G7 TOILET AND LAUNDRY SOAP SUPERVISOR Misc Use reader as directed. DEXCOM G7 [...] times a day. naloxone (NARCAN) 4 mg/actuation Festus Apply 1 spray in one nostril if [...] CKD IIIb/IV: - Presumed s/t HRS - In Mold Coater: Yovanny Curran at [facility] Allograft Function: S/p SLK 10/25- [...] 10/27/2024 1500 Gross per 24 hour Intake 98263.28 ml Output 5950 ml Net 6403.28 ml Heme/Anemia: WBC: 5.8 Goal HgB 10-12 mg/dL Hgb: 7.5 Plt 50 Iron: 128 on 10/25/2024 Ferritin 623.2 on 10/25/2024 TIBC: SEE COMMENT on 10/25/2024 % Iron Saturation: SEE COMMENT on 10/25/2024 UpvxmozY76: No results found for requested labs within [...] - Monitor renal function. No indications for CURRICULUM DEVELOPMENT SPECIALIST. Good UOP - Noted KT US [...] preliminary until attending attestation. Lauren Santos, SAMSON, SUPERVISOR PLEATING, MOVIE WRITER- Transplant Nephrology [phone] Preferred contact: secure chat [1] Allergies Allergen [...] Gonzalez MD, MEd, FASN * Marcellus Hebert, QUOTATION CLERK, CORN HUSKER MACHINE OPERATOR - 10/27/2024 10:21 AM EDT HEALTH Care Management/Social Work Assessment Patient Information Patient Name: Blair Gilbert Hospital Day: 2 Inpatient/Observation: Inpatient Admit Date: 10/25/2024 Admission Diagnosis: Liver transplant recipient (CMS-HCC) [Z94.4] Attending provider: Semaj Mcnair III, MD PCP: Enedina Mcguire NP Home Pharmacy: [facility] [address] [place] [address] [facility] [address] [facility] [address] Issues related to obtaining medications: N/A Payor Information Medical Insurance Coverage: Payor: [facility] / Plan: [facility] / Product Type: *No Producttype* [...] History: 12 weeks of CD Treatement at [facility] Do you need Substance Abuse Treatment [...] No Status & Connection to [facility] [place] Status & Connection to [place] [facility] Are [...] resides with his spouse at their [facility] [place]. 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 Patient's LNOK:Spouse, Abdiaziz Gilbert, Patient has no current or past history of suicidal/homicidal ideation. Patient has a history of mental health diagnoses, PTSD and Generalized Anxiety Disorder. Patient is connected with TransplantPsychiatrist and prescribed Prozac. Patient has a history of alcohol use and has completed 12 weeksof CD Treatment at [facility]. Spouse explained that he will [...] as appropriate. NUBIA Escalera, RONALDO Phone Number: [phone] * John Moreno MD - 10/26/2024 3:41 AM EDT SURGICAL ICU CONSULT NOTE 10/26/2024 3:41 AM Name: Blair Gilbert CSN: [id number] HPI: Blair Gilbert is a 39 y.o. [...] at 9:00 PM naloxone (NARCAN) 4 mg/actuation Festus Apply 1 spray in one nostril if [...] % 250 mL infusion 2.5 mcg/min (10/26/24 0641) insulin regular in 0.9 % sodium chloride norepinephrine 18 mcg/min (10/26/24 600) vasopressin 0.04 Units/min (10/26/24 5034) PRN Meds: heparin (porcine) 5,000 unit/mL 10,000 [...] input(s): PHART , PCO2 , PO2ART , ANS7UML , BEART in the last 72 hours. [...] at baseline or with provocation, shows no fdrav-xu-pyrq atrial level shunt. - Pulmonary arteries: Systolic [...] IV pantoprazole while intubated, NPO Last BM: SPACE CONTROL AGENT Bowel regimen: Senna/Miralax when able Nausea: Zofran PRN FLUID/ELECTROLYTES Recent Labs 10/25/24 2217 NA 137 K 2.1* CL 100 CO2 20* BUN 74* CREATININE 3.87* CALCIUM 9.3 PHOS 5.9* GLUCOSE 114* Intake/Output Summary (Last 24 hours) at 10/26/2024 0341 Last data filed at 10/26/2024 0326 Gross per 24 hour Intake 81822 ml Output 675 ml Net 81213 ml IV Fluids: EPINEPHrine (ADRENALIN) 10 mg in sodium chloride 0.9 % 250 mL infusion, Last Rate: 2.5 mcg/min (10/26/24 0339) insulin regular in 0.9 % sodium chloride norepinephrine, Last Rate: 18 mcg/min (10/26/24 243) vasopressin, Last Rate: 0.04 Units/min (10/26/24 8584) A/P: - Goal UOP >0.5 cc/kg/hr - [...] results for input(s): TEGANGLE , TEGKTIME , ASCYSQMV86 , TEGMAXAMPL , TEGRTIME , CBMZ in [...] in sodium chloride 0.9% 100 mL IVPB (Fmhu4Jdm) 2 g Every 6 hours 10/26/2024 -- Admin Instructions: Use Kltf2Awn Adapter - Mix Thoroughly Before Administration Notes to Pharmacy: On order desk clerk estimated creatinine clearance is 35.9 mL/min (A) (based on SCr of 3.87 mg/dL (H)). Route: Intravenous AMPicillin 2 g in sodium chloride 0.9% 100 mL IVPB (Zhds2Gyg) 2 g Once 10/26/2024 -- Admin Instructions: Use Mqkc8Trw Adapter - Mix Thoroughly Before Administration Notes to Pharmacy: On order desk clerk estimated creatinine clearance is 35.9 mL/min (A) (based on SCr of 3.87 mg/dL (H)). Route: Intravenous cefTRIAXone (ROCEPHIN) 2 g in sodium chloride 0.9 % 100 mL Ltii5Tny (Completed) 2 g Once 10/25/2024 10/26/2024 Admin Instructions: Use Hryt2Duj Adapter - Mix Thoroughly Before Administration Route: [...] R IJ Mac Arterial Line? R radial Bellflower Urinary Catheter? Berkowitz - Reason: Adequate I/O [...] 47 (H) 10/26/2024 PO2ART 127 (H) 10/26/2024 UMB3GYA 21 (L) 10/26/2024 BEART -5.4 (L) 10/26/2024 HRP4NFJ 94.6 (L) 10/26/2024 J6WZEFPO 98 10/26/2024 P:F ratio = 363 CARDIOVASCULAR: [...] Acute Care Surgery, and Surgical Critical Care [facility] Academic Office [phone] For Transfers, call [phone] documented in this encounter Nursing Notes * [...] s/p OLT. Patient arrived to SICU bed [facility]ICU[facility]28[facility] via hospital bed . Patient arrived intubated. [...] Escalera, RONALDO - 10/31/2024 11:34 AM EDT [facility] Case Management/Social Work Department Progress Note Patient Information Patient Name: Blair Gilbert Hospital day: 6 Inpatient/Observation: Inpatient Level of Care: Transplant Admit date: 10/25/2024 Admission diagnosis: Liver transplant recipient (CMS-HCC) [Z94.4] PMH: has a past medical history of Alcoholic cirrhosis of liver (CMS-HCC), Esophageal varices (CMS-HCC), Hepatorenal syndrome (CMS-HCC), Hypertension, Other hyperlipidemia (07/26/2024), Renal cell carcinoma (CMS-HCC), Thrombocytopenia ([facility]), and Thyroid disease. PCP: Enedina Mcguire NP Home Pharmacy: [facility] [address] [place] [address] [facility] [address] [facility] [address] [facility] [place] - [address] [facility] [address] [facility] [id number] Medical Insurance Coverage: Payor: [employer] [facility] [facility] [...] aware that there were no accepting C agencies([facility], [facility], [facility]) and patient would need to outpatient for PT/OT and labs. Discharge Plan Anticipated discharge plan: Home with HHC vs Home with outpatient Anticipated discharge date: 11/01 CM/SW will continue to follow and remain available for discharge planning needs. NUBIA Escalera, CORN HUSKER MACHINE OPERATOR Cell [phone] * Plan of Care - Paulette Flannery [...] Citlaly Rohini - 10/29/2024 1:53 PM EDT [facility] Case Management/Social Work Department Progress [...] Thrombocytopenia (CMS-HCC), and Thyroid disease. PCP: Enedina cMguire NP Home Pharmacy: [facility] [address] [place] [address] [facility] [address] [facility] [address] [facility] [place] - [address] [place] [id number] Medical Insurance Coverage: Payor: [employer] [...] submitted blanket HHC referral to [facility], [facility], [facility], and [facility]. Awaiting responses. SW to followpending clearance home [...] available for discharge planning needs. Citlaly Nova, QUOTATION CLERK, CORN HUSKER MACHINE OPERATOR Inpatient Suit Maker/Care Coordination [phone] * Plan of Care - Soco Yap [...] Escalera LSW - 10/28/2024 2:29 PM EDT [facility] Case Management/Social Work Department Progress [...] disease. PCP: Enedina Mcguire NP Home Pharmacy: [facility] [address] [address] [facility] [address] [facility] [address] [facility] [place] [address] [place] [address] Medical Insurance Coverage: [facility] / Plan: [employer] / [...] discharge planning needs. NUBIA Escalera, RONALDO Cell [phone] * Plan of Care - Elaine Carrillo [...] at all times. Outcome: Completed Problem: Non-violent, lct-kozz-ljulbolhxoc restraints Description: Less restrictive alternative interventions will [...] protection of medical procedures, or protection of rn medical surgical access. Outcome: Completed * Plan of Care [...] foods as appropriate. Outcome: Progressing Problem: Non-violent, gll-sfjn-ozfkrjbeuyz restraints Description: Less restrictive alternative interventions will [...] protection of medical procedures, or protection of rn medical surgical access. Outcome: Progressing * Plan of Care - Shanel Shen RN - 10/27/2024 9:00 AM EDT Problem: Non-violent, xyt-fxrp-salkyxtoywh restraints Description: Less restrictive alternative interventions will [...] - 10/26/2024 7:41 PM EDT Problem: Non-violent, sxh-ttfp-heaygllwgtw restraints Description: Less restrictive alternative interventions will [...] protection of medical procedures, or protection of rn medical surgical access. Outcome: Not Progressing Patient in bilateral [...] restraint flowsheet for further documentation. Problem: Non-violent, srn-tinw-rmdytknbchs restraints Description: Less restrictive alternative interventions will [...] protection of medical procedures, or protection of rn medical surgical access. Outcome: Progressing * Plan of Care - Jannet Ramiers - 10/26/2024 9:55 AM EDT Problem: Mechanical [...] 8:01 AM EDT Hospital Encounter [facility] ENDOSCOPY [address] [place] [address] Chris Orosco MD [address] [place] [address] 12/05/2024 8:01 AM EDT - 12/05/2024 8:31 AM EDT Surgery [facility] ENDOSCOPY [address] [place] [address] Chris Orosco MD [address] [place] [id number] EGD Pending Results Name Type Priority Associated Diagnoses Date /Time Fungus culture Microbiology Routine 10/28/19 2:15 AM EDT Scheduled Orders Name Type Priority Associated Diagnoses Orde r Schedule Anaerobic culture Microbiology Routine Acute kidney injury superimposed on CKD ([facility]) Release Upon Ordering for 1 Occurrences starting 10/27/2024 Fungus culture Microbiology Routine Acute kidney injury superimposed on CKD ([facility]) Release Upon Ordering for 1 Occurrences starting 10/27/2024 Routine Culture plus Stain Microbiology Routine Acute kidney injury superimposed on CKD ([facility]) Release Upon Ordering for 1 Occurrences starting 10/27/2024 Surgical Pathology Exam Pathology and Cytology Routine Acute kidney injury superimposed on CKD ([facility]) Release Upon Ordering for 1 Occurrences starting 10/27/2024 Scheduled Procedures Name Priority Associated Diagnoses Date/Ti me EGD Cirrhosis of liver with ascites, unspecified hepatic cirrhosis type ([facility]) 12/05/2024 8:01 AM EDT documented as of [...] Routine 10/31/2024 11:59 AM EDT US DUPLEX [id number] COMPLETE Routine 10/31/2024 10:19 AM EDT US [...] Routine 10/28/2024 5:31 PM EDT US DUPLEX [id number] COMPLETE STAT 10/28/2024 4:23 PM EDT US [...] Routine 10/27/2024 10:00 AM EDT US DUPLEX [id number] COMPLETE STAT 10/27/2024 9:51 AM EDT US [...] EDT Acute kidney injury superimposed on CKD ([facility]) ROUTINE CULTURE PLUS STAIN Routine 10/27/2024 2:15 [...] - 100 mg/dL 11/02/2024 5:45 PM EDT LAB Blood 11/02/2024 5:44 PM EDT 11/02/2024 5:45 PM EDT us Semaj Mcnair III, MD POINT OF CARE TEST ORDERABLES Final Result LAB [address] [facility]. [address] * (ABNORMAL) POC Glucose Monitoring Device (11/02/2024 3:34 PM EDT) POC Glucose Monitoring Device 208(H) 70 - 100 mg/dL 11/02/2024 3:35 PM EDT LAB Blood 11/02/2024 3:34 PM EDT 11/02/2024 3:35 PM EDT us Semaj Mcnair III, MD POINT OF CARE TEST ORDERABLES Final Result LAB [address] [facility]. [address] * (ABNORMAL) POC Glucose Monitoring Device (11/02/2024 1:18 PM EDT) POC Glucose Monitoring Device 225(H) 70 - 100 mg/dL 11/02/2024 1:19 PM EDT LAB Blood 11/02/2024 1:18 PM EDT 11/02/2024 1:19 PM EDT us Semaj Mcnair III, MD POINT OF CARE TEST ORDERABLES Final Result Performing Organization Address City/[facility]/ZIP Co de Phone Number LAB [address] * (ABNORMAL) POC Glucose Monitoring Device (11/02/2024 8:59 AM EDT) POC Glucose Monitoring Device 129(H) 70 - 100 mg/dL 11/02/2024 9:00 AM EDT LAB Blood 11/02/2024 8:59 AM EDT 11/02/2024 9:00 AM EDT Semaj Mcnair III, MD POINT OF CARE TEST ORDERABLES Final Result Performing Organization Address [facility] Co de Phone Number LAB [address] * Tacrolimus level (11/02/2024 5:53 AM EDT) Tacrolimus (LC-MS) 7.4 3.0 - 15.0 ng/mL 11/02/2024 2:23 PM EDT LAB Comment:Performed via liquid chromatography tandem mass spectrometry. Detection limit: 1 ng/mL. Individual target concentrations may vary due to target organ and time after transplant. This test has been developed and its performance characteristics determined by [facility] which is certified under [...] Denisse l Result Performing Organization Address [facility]/ZIP Co de Phone Number LAB [address] * (ABNORMAL) Renal Function Panel w/EGFR (11/02/2024 5:53 AM EDT) Sodium 140 133 - 146 mmol/L 11/02/2024 6:47 AM EDT LAB Potassium 3.3(L) 3.5 - 5.3 mmol/L 11/02/2024 6:47 AM EDT LAB Chloride 107 98 - 110 mmol/L 11/02/2024 6:47 AM EDT LAB CO2 25 21 - 33 mmol/L 11/02/2024 6:47 AM EDT LAB Anion Gap 8 3 - 16 mmol/L 11/02/2024 6:47 AM EDT LAB BUN 31(H) 7 - 25 mg/dL 11/02/2024 6:47 AM EDT LAB Creatinine 1.08 0.60 - 1.30 mg/dL 11/02/2024 6:47 AM EDT LAB Glucose 150(H) 70 - 100 mg/dL 11/02/2024 6:47 AM EDT LAB Calcium 7.8(L) 8.6 - 10.3 mg/dL 11/02/2024 6:47 AM EDT LAB Phosphorus 2.0(L) 2.1 - 4.7 mg/dL 11/02/2024 6:47 AM EDT LAB Albumin 3.2(L) 3.5 - 5.7 g/dL 11/02/2024 6:47 AM EDT LAB Osmolality, Calculated 299 278 - 305 mOsm/kg 11/02/2024 6:47 AM EDT LAB EGFR 88 11/02/2024 6:47 AM EDT LAB Comment:As of 2021, the estimated GFR [...] EDT 11/02/2024 6:12 AM EDT Beata Horner DEALER ACCOUNT MANAGER LAB BLOOD ORDERABLES Denisse l Result Performing Organization Address City/[facility] Co de Phone Number LAB [address] * (ABNORMAL) Magnesium (11/02/2024 5:53 AM EDT) Magnesium 1.3(L) 1.5 - 2.5 mg/dL 11/02/2024 6:47 AM EDT LAB Plasma 11/02/2024 5:53 AM EDT 11/02/2024 6:12 AM EDT Beata Bessn [facility] LAB BLOOD ORDERABLES Denisse l Result Performing Organization Address [facility] de Phone Number LAB [address] * (ABNORMAL) Hepatic Function Panel (11/02/2024 5:53 AM EDT) Total Bilirubin 1.6(H) 0.0 - 1.5 mg/dL 11/02/2024 6:47 AM EDT LAB Bilirubin, Direct 0.81(H) 0.00 - 0.40 mg/dL 11/02/2024 6:47 AM EDT LAB AST 30 13 - 39 U/L 11/02/2024 6:47 AM EDT LAB ALT 66(H) 7 - 52 U/L 11/02/2024 6:47 AM EDT LAB Alkaline Phosphatase 126(H) 36 - 125 U/L 11/02/2024 6:47 AM EDT LAB Total Protein 4.6(L) 6.4 - 8.9 g/dL 11/02/2024 6:47 AM EDT LAB Albumin 3.2(L) 3.5 - 5.7 g/dL 11/02/2024 6:47 AM EDT LAB Bilirubin, Indirect 0.79 0.00 - 1.10 mg/dL 11/02/2024 6:47 AM EDT LAB Plasma 11/02/2024 5:53 AM EDT 11/02/2024 6:12 AM EDT us Beata Horner DEALER ACCOUNT MANAGER LAB BLOOD ORDERABLES Denisse l Result LAB [address] [place] [address], [facility] * (ABNORMAL) CBC (11/02/2024 5:53 AM EDT) WBC 5.8 3.8 - 10.8 10E3/uL 11/02/2024 6:21 AM EDT LAB RBC 3.12(L) 4.20 - 5.80 10E6/uL 11/02/2024 6:21 AM EDT LAB Hemoglobin 9.2(L) 13.2 - 17.1 g/dL 11/02/2024 6:21 AM EDT LAB Hematocrit 27.5(L) 38.5 - 50.0 % 11/02/2024 6:21 AM EDT LAB MCV 87.9 80.0 - 100.0 fL 11/02/2024 6:21 AM EDT LAB MCH 29.5 27.0 - 33.0 pg 11/02/2024 6:21 AM EDT LAB MCHC 33.5 32.0 - 36.0 g/dL 11/02/2024 6:21 AM EDT LAB RDW 17.5(H) 11.0 - 15.0 % 11/02/2024 6:21 AM EDT LAB Platelets 61(L) 140 - 400 10E3/uL 11/02/2024 6:21 AM EDT LAB MPV 7.9 7.5 - 11.5 fL 11/02/2024 6:21 AM EDT LAB Whole Blood 11/02/2024 5:53 AM EDT 11/02/2024 6:12 AM EDT Beata Horner [facility] LAB BLOOD ORDERABLES Denisse l Result [facility] [address] [facility]. [address] * (ABNORMAL) POC Glucose Monitoring Device (11/01/2024 9:26 PM EDT) POC Glucose Monitoring Device 199(H) 70 - 100 mg/dL 11/01/2024 9:27 PM EDT LAB Blood 11/01/2024 9:26 PM EDT 11/01/2024 9:27 PM EDT Semaj Mcnair III, MD POINT OF CARE TEST ORDERABLES Final Result Performing Organization Address City/[facility]/ZIP Co de Phone Number LAB [address] [facility]. [address] * (ABNORMAL) POC Glucose Monitoring Device (11/01/2024 5:04 PM EDT) POC Glucose Monitoring Device 255(H) 70 - 100 mg/dL 11/01/2024 5:05 PM EDT [facility] Blood 11/01/2024 5:04 PM EDT 11/01/2024 5:05 PM EDT Semaj Mcnair III, MD POINT OF CARE TEST ORDERABLES Final Result [facility] [address] [facility]. [address] * (ABNORMAL) Renal Function Panel w/EGFR, STAT (11/01/2024 2:17 PM EDT) Sodium 139 133 - 146 mmol/L 11/01/2024 3:10 PM EDT LAB Potassium 3.3(L) 3.5 - 5.3 mmol/L 11/01/2024 3:10 PM EDT LAB Chloride 107 98 - 110 mmol/L 11/01/2024 3:10 PM EDT LAB CO2 24 21 - 33 mmol/L 11/01/2024 3:10 PM EDT LAB Anion Gap 8 3 - 16 mmol/L 11/01/2024 3:10 PM EDT LAB BUN 35(H) 7 - 25 mg/dL 11/01/2024 3:10 PM EDT LAB Creatinine 1.22 0.60 - 1.30 mg/dL 11/01/2024 3:10 PM EDT LAB Glucose 203(H) 70 - 100 mg/dL 11/01/2024 3:10 PM EDT LAB Calcium 8.3(L) 8.6 - 10.3 mg/dL 11/01/2024 3:10 PM EDT LAB Phosphorus 2.2 2.1 - 4.7 mg/dL 11/01/2024 3:10 PM EDT LAB Albumin 3.4(L) 3.5 - 5.7 g/dL 11/01/2024 3:10 PM EDT LAB Osmolality, Calculated 302 278 - 305 mOsm/kg 11/01/2024 3:10 PM EDT LAB EGFR 76 11/01/2024 3:10 PM EDT LAB Comment:As of 2021, the estimated GFR [...] Marks MD LAB BLOOD ORDERABLES Final Result LAB [address] [place] [address], [facility] * X-ray Portable Abdomen AP view [...] - 100 mg/dL 11/01/2024 12:23 PM EDT LAB Blood 11/01/2024 12:2 2 PM EDT 11/01/2024 12:23 PM EDT us Semaj Mcnair III, MD POINT OF CARE TEST ORDERABLES Final Result Performing Organization Address [facility] Co de Phone Number [facility] [address] * (ABNORMAL) POC Glucose Monitoring Device (11/01/2024 8:50 AM EDT) POC Glucose Monitoring Device 175(H) 70 - 100 mg/dL 11/01/2024 8:51 AM EDT [facility] Blood 11/01/2024 8:50 AM EDT 11/01/2024 8:51 AM EDT Semaj Mcnair III, MD POINT OF CARE TEST ORDERABLES Final Result Performing Organization Address City/[facility]/ZIP Co de Phone Number LAB [address] [facility]. [address] * Tacrolimus level (11/01/2024 6:01 AM EDT) Tacrolimus (LC-MS) 7.5 3.0 - 15.0 ng/mL 11/01/2024 12:14 PM EDT LAB Comment:Performed via liquid chromatography tandem mass spectrometry. Detection limit: 1 ng/mL. Individual target concentrations may vary due to target organ and time after transplant. This test has been developed and its performance characteristics determined by [facility] which is certified under [...] PharmD LAB BLOOD ORDERABLES Denisse valle Result LAB [address] [place] [address], [facility] * (ABNORMAL) Renal Function Panel w/EGFR (11/01/2024 6:01 AM EDT) Sodium 139 133 - 146 mmol/L 11/01/2024 6:57 AM EDT LAB Potassium 3.3(L) 3.5 - 5.3 mmol/L 11/01/2024 6:57 AM EDT LAB Chloride 108 98 - 110 mmol/L 11/01/2024 6:57 AM EDT LAB CO2 22 21 - 33 mmol/L 11/01/2024 6:57 AM EDT LAB Anion Gap 9 3 - 16 mmol/L 11/01/2024 6:57 AM EDT LAB BUN 37(H) 7 - 25 mg/dL 11/01/2024 6:57 AM EDT LAB Creatinine 1.30 0.60 - 1.30 mg/dL 11/01/2024 6:57 AM EDT LAB Glucose 163(H) 70 - 100 mg/dL 11/01/2024 6:57 AM EDT LAB Calcium 8.2(L) 8.6 - 10.3 mg/dL 11/01/2024 6:57 AM EDT LAB Phosphorus 2.9 2.1 - 4.7 mg/dL 11/01/2024 6:57 AM EDT LAB Albumin 3.1(L) 3.5 - 5.7 g/dL 11/01/2024 6:57 AM EDT LAB Osmolality, Calculated 300 278 - 305 mOsm/kg 11/01/2024 6:57 AM EDT LAB EGFR 71 11/01/2024 6:57 AM EDT LAB Comment:As of 2021, the estimated GFR [...] 6:01 AM EDT 11/01/2024 6:20 AM EDT [facility] LAB BLOOD ORDERABLES Denisse l Result LAB [address] [facility]. [address] * Magnesium (11/01/2024 6:01 AM EDT) Magnesium 1.5 1.5 - 2.5 mg/dL 11/01/2024 6:57 AM EDT LAB Plasma 11/01/2024 6:01 AM EDT 11/01/2024 6:20 AM EDT [facility] LAB BLOOD ORDERABLES Denisse l Result LAB [address] * (ABNORMAL) Hepatic Function Panel (11/01/2024 6:01 AM EDT) Total Bilirubin 2.0(H) 0.0 - 1.5 mg/dL 11/01/2024 6:57 AM EDT LAB Bilirubin, Direct 1.06(H) 0.00 - 0.40 mg/dL 11/01/2024 6:57 AM EDT LAB AST 21 13 - 39 U/L 11/01/2024 6:57 AM EDT LAB ALT 62(H) 7 - 52 U/L 11/01/2024 6:57 AM EDT LAB Alkaline Phosphatase 114 36 - 125 U/L 11/01/2024 6:57 AM EDT LAB Total Protein 4.6(L) 6.4 - 8.9 g/dL 11/01/2024 6:57 AM EDT LAB Albumin 3.1(L) 3.5 - 5.7 g/dL 11/01/2024 6:57 AM EDT LAB Bilirubin, Indirect 0.94 0.00 - 1.10 mg/dL 11/01/2024 6:57 AM EDT LAB Plasma 11/01/2024 6:01 AM EDT 11/01/2024 6:20 AM EDT us Beata Horner DEALER ACCOUNT MANAGER LAB BLOOD ORDERABLES Denisse valle Result LAB [address] [place] [address], [facility] * (ABNORMAL) CBC (11/01/2024 6:01 AM EDT) WBC 5.9 3.8 - 10.8 10E3/uL 11/01/2024 6:29 AM EDT LAB RBC 3.19(L) 4.20 - 5.80 10E6/uL 11/01/2024 6:29 AM EDT LAB Hemoglobin 9.5(L) 13.2 - 17.1 g/dL 11/01/2024 6:29 AM EDT LAB Hematocrit 27.8(L) 38.5 - 50.0 % 11/01/2024 6:29 AM EDT LAB MCV 87.1 80.0 - 100.0 fL 11/01/2024 6:29 AM EDT LAB MCH 29.9 27.0 - 33.0 pg 11/01/2024 6:29 AM EDT LAB MCHC 34.3 32.0 - 36.0 g/dL 11/01/2024 6:29 AM EDT LAB RDW 17.4(H) 11.0 - 15.0 % 11/01/2024 6:29 AM EDT LAB Platelets 56(L) 140 - 400 10E3/uL 11/01/2024 6:29 AM EDT LAB MPV 8.3 7.5 - 11.5 fL 11/01/2024 6:29 AM EDT LAB Whole Blood 11/01/2024 6:01 AM EDT 11/01/2024 6:19 AM EDT Beata Horner DEALER ACCOUNT MANAGER LAB BLOOD ORDERABLES Denisse l Result LAB [address] [facility]. [address] * (ABNORMAL) POC Glucose Monitoring Device (10/31/2024 9:15 PM EDT) POC Glucose Monitoring Device 171(H) 70 - 100 mg/dL 10/31/2024 9:15 PM EDT [facility] Blood 10/31/2024 9:15 PM EDT 10/31/2024 9:15 PM EDT Semaj Mcnair III, MD POINT OF CARE TEST ORDERABLES Final Result [facility] [address] * (ABNORMAL) POC Glucose Monitoring Device (10/31/2024 5:56 PM EDT) POC Glucose Monitoring Device 179(H) 70 - 100 mg/dL 10/31/2024 5:57 PM EDT LAB Blood 10/31/2024 5:56 PM EDT 10/31/2024 5:57 PM EDT us Semaj Mcnair III, MD POINT OF CARE TEST ORDERABLES Final Result [facility] [address] [place] [address], [facility] * CT Abdomen and Pelvis WO [...] Adrenal gland: No focal nodule seen. Kidneys: [place] kidneys noted with nonobstructing calcifications on the right. Findings of postsurgical changes in the left bad [place] band kidney. Mild right hydronephrosis without an obstructive [...] Adrenal gland: No focal nodule seen. Kidneys: [place] kidneys noted with nonobstructing calcifications on theright. Findings of postsurgical changes in the left bad river band kidney. Mildright hydronephrosis without an obstructive course [...] QT: 400 ms QTc: 456 ms P Banks: 49 degrees R Banks: 3 degrees T Banks: 14 degrees Diagnosis Line: NORMAL SINUS RHYTHM ^ NORMAL ECG ^ ^ Confirmed by MD REID JAMES ([id number]) on 11/02/2024 6:56:52 AM Priti Geiger CNP ECG ORDERABLES Final Result MUSE * (ABNORMAL) Urinalysis w/Rfl to Microscopic (10/31/2024 1:18 PM EDT) Color, UA Straw Yellow,Straw 10/31/2024 1:46 PM EDT LAB Clarity, UA Clear Clear 10/31/2024 1:46 PM EDT LAB Specific [place], UA 1.013 1.005 - 1.035 10/31/2024 1:46 PM EDT LAB pH, UA 6.5 5.0 - 8.0 10/31/2024 1:46 PM EDT LAB Protein, UA Negative Negative mg/dL 10/31/2024 1:46 PM EDT LAB Glucose, UA Negative Negative mg/dL 10/31/2024 1:46 PM EDT LAB Ketones, UA Negative Negative mg/dL 10/31/2024 1:46 PM EDT LAB Bilirubin, UA Negative Negative 10/31/2024 1:46 PM EDT LAB Blood, UA Large(A) Negative 10/31/2024 1:46 PM EDT LAB Nitrite, UA Negative Negative 10/31/2024 1:46 PM EDT LAB Urobilinogen, UA <2.0 0.2 - 1.9 mg/dL 10/31/2024 1:46 PM EDT LAB Leukocyte Esterase, UA Negative Negative 10/31/2024 1:46 PM EDT LAB RBC, UA >100(H) 0 - 3 /HPF 10/31/2024 1:46 PM EDT LAB WBC, UA 3 0 - 5 /HPF 10/31/2024 1:46 PM EDT LAB Hyaline Casts, UA 3(H) 0 - 2 /LPF 10/31/2024 1:46 PM EDT LAB Urine 10/31/2024 1:18 PM EDT 10/31/2024 1:32 PM EDT Priti Geiger CNP URINE ORDERABLES Final Result Performing Organization Address City/[facility]/ZIP Co de Phone Number LAB [address] * (ABNORMAL) Post Kidney Transplant Urine Culture (10/31/2024 1:18 PM EDT) Culture Result Enterococcus faecium, Vancomycin Resistant(A) LAB Comment: 1,000- <10,000 cfu/mL Identified by [...] ORDERA BLES Final Result Performing Organization Address City/[facility]/ZIP Co de Phone Number LAB [address] * (ABNORMAL) POC Glucose Monitoring Device (10/31/2024 11:59 AM EDT) POC Glucose Monitoring Device 130(H) 70 - 100 mg/dL 10/31/2024 12:21 PM EDT [facility]ALTH LAB Blood 10/31/2024 11:5 9 AM EDT 10/31/2024 12:21 PM EDT us Semaj Mcnair III, MD POINT OF CARE TEST ORDERABLES Final Result LAB [address] [place] [address], [facility] * US Abdomen Limited (10/31/2024 10:19 [...] EXAM: US ABDOMEN LIMITED EXAM: US DUPLEX [id number] COMPLETE INDICATION: Post-op liver transplant COMPARISON: None [...] visualized secondary to poor acoustic windows. The bad river band right kidney measures 11.6 cm in length. [...] EXAM: US ABDOMEN LIMITED EXAM: US DUPLEX [id number] COMPLETE INDICATION: Post-op liver transplant COMPARISON: None [...] well visualized secondary to poor acousticwindows. The [place] band right kidney measures 11.6 cm in length. [...] at 10/31/2024 10:35 AM EDT Beata Horner [facility] US ORDERABLES Final R esult * [...] 10/31/2024 10:29 AM EDT us Beata Horner DEALER ACCOUNT MANAGER IMG US ORDERABLES Final R esult * US Duplex Par-Zlw-[id number] Comp (10/31/2024 10:19 AM EDT) Anatomical Region [...] EXAM: US ABDOMEN LIMITED EXAM: US DUPLEX [id number] COMPLETE INDICATION: Post-op liver transplant COMPARISON: None [...] visualized secondary to poor acoustic windows. The [place] band right kidney measures 11.6 cm in length. [...] EXAM: US ABDOMEN LIMITED EXAM: US DUPLEX [id number] COMPLETE INDICATION: Post-op liver transplant COMPARISON: None [...] well visualized secondary to poor acousticwindows. The bad [place] band right kidney measures 11.6 cm in length. [...] 10/31/2024 10:35 AM EDT us Beata Horner DEALER ACCOUNT MANAGER IMG US ORDERABLES Final R esult * ECG 12-lead (MUSE) (10/31/2024 8:57 AM EDT) 10/31/2024 8:57 AM EDT Narrative MUSE - 11/01/2024 9:21 AM EDT Ventricular Rate: 83 BPM Atrial Rate: 83 BPM P-R Interval: 168 ms QRS Duration: 102 ms QT: 392 ms QTc: 460 ms P Banks: 64 degrees R Banks: -18 degrees T Banks: 7 degrees Diagnosis Line: NORMAL SINUS RHYTHM ^ NORMAL ECG ^ ^ Confirmed by MD JOE, OTIS ([id number]) on 11/01/2024 9:21:13 AM Kerisusan Geiger DEALER ACCOUNT MANAGER ECG ORDERABLES Final Result MUSE * (ABNORMAL) POC Glucose Monitoring Device (10/31/2024 8:44 AM EDT) Pathologist [facility] POC Glucose Monitoring Device 145(H) 70 - 100 mg/dL 10/31/2024 8:45 AM EDT [facility] Blood 10/31/2024 8:44 AM EDT 10/31/2024 8:44 AM EDT Semaj Mcnair III, MD POINT OF CARE TEST ORDERABLES Final Result Performing Organization Address City/[facility] Co de Phone Number LAB [address] * Tacrolimus level (10/31/2024 6:40 AM EDT) Pathologist [facility] Tacrolimus (LC-MS) 8.4 3.0 - 15.0 ng/mL 10/31/2024 10:05 AM EDT LAB Comment:Performed via liquid chromatography tandem mass spectrometry. Detection limit: 1 ng/mL. Individual target concentrations may vary due to target organ and time after transplant. This test has been developed and its performance characteristics determined by [facility] which is certified under [...] PharmD LAB BLOOD ORDERABLES Denisse tori Result LAB [address] [place] [address], [facility] * (ABNORMAL) Renal Function Panel w/EGFR (10/31/2024 6:40 AM EDT) Sodium 141 133 - 146 mmol/L 10/31/2024 8:09 AM EDT LAB Potassium 3.5 3.5 - 5.3 mmol/L 10/31/2024 8:09 AM EDT LAB Chloride 111(H) 98 - 110 mmol/L 10/31/2024 8:09 AM EDT LAB CO2 20(L) 21 - 33 mmol/L 10/31/2024 8:09 AM EDT LAB Anion Gap 10 3 - 16 mmol/L 10/31/2024 8:09 AM EDT LAB BUN 54(H) 7 - 25 mg/dL 10/31/2024 8:09 AM EDT LAB Creatinine 1.75(H) 0.60 - 1.30 mg/dL 10/31/2024 8:09 AM EDT LAB Glucose 136(H) 70 - 100 mg/dL 10/31/2024 8:09 AM EDT LAB Calcium 8.7 8.6 - 10.3 mg/dL 10/31/2024 8:09 AM EDT LAB Phosphorus 4.1 2.1 - 4.7 mg/dL 10/31/2024 8:09 AM EDT LAB Albumin 3.2(L) 3.5 - 5.7 g/dL 10/31/2024 8:09 AM EDT LAB Osmolality, Calculated 309(H) 278 - 305 mOsm/kg 10/31/2024 8:09 AM EDT LAB EGFR 50 10/31/2024 8:09 AM EDT LAB Comment:As of 2021, the estimated GFR [...] 10/31/2024 7:35 AM EDT Beata Dada Horner [facility] LAB BLOOD ORDERABLES Denisse l Result Performing Organization Address [facility]/ZIP Co de Phone Number LAB [address] [place] [address]. [address] * Magnesium (10/31/2024 6:40 AM EDT) Magnesium 1.8 1.5 - 2.5 mg/dL 10/31/2024 8:09 AM EDT LAB Plasma 10/31/2024 6:40 AM EDT 10/31/2024 7:35 AM EDT Memampbrook Horner [facility] LAB BLOOD ORDERABLES Denisse l Result Performing Organization Address [facility] Co de Phone Number LAB [address] [place] [address] * (ABNORMAL) Hepatic Function Panel (10/31/2024 6:40 AM EDT) Total Bilirubin 2.7(H) 0.0 - 1.5 mg/dL 10/31/2024 8:09 AM EDT LAB Bilirubin, Direct 1.57(H) 0.00 - 0.40 mg/dL 10/31/2024 8:09 AM EDT LAB AST 26 13 - 39 U/L 10/31/2024 8:09 AM EDT LAB ALT 68(H) 7 - 52 U/L 10/31/2024 8:09 AM EDT LAB Alkaline Phosphatase 112 36 - 125 U/L 10/31/2024 8:09 AM EDT LAB Total Protein 4.7(L) 6.4 - 8.9 g/dL 10/31/2024 8:09 AM EDT LAB Albumin 3.2(L) 3.5 - 5.7 g/dL 10/31/2024 8:09 AM EDT LAB Bilirubin, Indirect 1.13(H) 0.00 - 1.10 mg/dL 10/31/2024 8:09 AM EDT LAB Plasma 10/31/2024 6:40 AM EDT 10/31/2024 7:35 AM EDT us Beata Horner [facility] LAB BLOOD ORDERABLES Denisse valle Result LAB [address] * (ABNORMAL) CBC (10/31/2024 6:40 AM EDT) WBC 6.0 3.8 - 10.8 10E3/uL 10/31/2024 8:05 AM EDT LAB RBC 3.14(L) 4.20 - 5.80 10E6/uL 10/31/2024 8:05 AM EDT LAB Hemoglobin 9.6(L) 13.2 - 17.1 g/dL 10/31/2024 8:05 AM EDT LAB Hematocrit 27.5(L) 38.5 - 50.0 % 10/31/2024 8:05 AM EDT LAB MCV 87.6 80.0 - 100.0 fL 10/31/2024 8:05 AM EDT LAB MCH 30.7 27.0 - 33.0 pg 10/31/2024 8:05 AM EDT LAB MCHC 35.0 32.0 - 36.0 g/dL 10/31/2024 8:05 AM EDT LAB RDW 17.9(H) 11.0 - 15.0 % 10/31/2024 8:05 AM EDT LAB Platelets 44(L) 140 - 400 10E3/uL 10/31/2024 8:05 AM EDT LAB Comment: CNV Specimen checked for clots. None detected. MPV 8.9 7.5 - 11.5 fL 10/31/2024 8:05 AM EDT LAB Whole Blood 10/31/2024 6:40 AM EDT 10/31/2024 7:34 AM EDT Beata Horner [facility] LAB BLOOD ORDERABLES Denisse l Result LAB [address] [facility]. [address] * (ABNORMAL) POC Glucose Monitoring Device (10/30/2024 9:01 PM EDT) POC Glucose Monitoring Device 144(H) 70 - 100 mg/dL 10/30/2024 9:02 PM EDT [facility] Blood 10/30/2024 9:01 PM EDT 10/30/2024 9:01 PM EDT Semaj Mcnair III, MD POINT OF CARE TEST ORDERABLES Final Result Performing Organization Address City/[facility]/ZIP Co de Phone Number LAB [address] [facility]. [address] * (ABNORMAL) POC Glucose Monitoring Device (10/30/2024 5:37 PM EDT) POC Glucose Monitoring Device 124(H) 70 - 100 mg/dL 10/30/2024 5:47 PM EDT LAB Blood 10/30/2024 5:37 PM EDT 10/30/2024 5:47 PM EDT Semaj Mcnair III, MD POINT OF CARE TEST ORDERABLES Final Result Performing Organization Address [facility]/ZIP Co de Phone Number LAB [address] [facility]. [address] * (ABNORMAL) POC Glucose Monitoring Device (10/30/2024 7:26 AM EDT) POC Glucose Monitoring Device 150(H) 70 - 100 mg/dL 10/30/2024 7:27 AM EDT LAB Blood 10/30/2024 7:26 AM EDT 10/30/2024 7:27 AM EDT Semaj Mcnair III, MD POINT OF CARE TEST ORDERABLES Final Result Performing Organization Address [facility] Co de Phone Number LAB [address] [place] [address]. [address] * Tacrolimus level (10/30/2024 7:13 AM EDT) Pathologist [facility] Tacrolimus (LC-MS) 9.5 3.0 - 15.0 ng/mL 10/30/2024 2:53 PM EDT LAB Comment:Performed via liquid chromatography tandem mass spectrometry. Detection limit: 1 ng/mL. Individual target concentrations may vary due to target organ and time after transplant. This test has been developed and its performance characteristics determined by [facility] which is certified under [...] EDT 10/30/2024 7:26 AM EDT Priti Geiger [facility] LAB BLOOD ORDERABLES Final Re sult Performing Organization Address [facility] Co de Phone Number LAB [address] [facility]. [address] * ECG 12-lead (MUSE) (10/30/2024 6:51 AM EDT) 10/30/2024 6:51 AM EDT Narrative MUSE - 11/01/2024 9:21 AM EDT Ventricular Rate: 92 BPM Atrial Rate: 92 BPM P-R Interval: 174 ms QRS Duration: 96 ms QT: 376 ms QTc: 464 ms P Banks: 54 degrees R Banks: -24 degrees T Banks: 11 degrees Diagnosis Line: NORMAL SINUS RHYTHM ^ NORMAL ECG ^ ^ Confirmed by MD JEO, OTIS ([id number]) on 11/01/2024 9:21:09 AM Priti Geiger DEALER ACCOUNT MANAGER ECG ORDERABLES Final Result MUSE * (ABNORMAL) Renal Function Panel w/EGFR (10/30/2024 5:41 AM EDT) Sodium 140 133 - 146 mmol/L 10/30/2024 6:18 AM EDT LAB Potassium 3.8 3.5 - 5.3 mmol/L 10/30/2024 6:18 AM EDT LAB Chloride 111(H) 98 - 110 mmol/L 10/30/2024 6:18 AM EDT LAB CO2 17(L) 21 - 33 mmol/L 10/30/2024 6:18 AM EDT LAB Anion Gap 12 3 - 16 mmol/L 10/30/2024 6:18 AM EDT LAB BUN 62(H) 7 - 25 mg/dL 10/30/2024 6:18 AM EDT LAB Creatinine 1.96(H) 0.60 - 1.30 mg/dL 10/30/2024 6:18 AM EDT LAB Glucose 116(H) 70 - 100 mg/dL 10/30/2024 6:18 AM EDT LAB Calcium 9.0 8.6 - 10.3 mg/dL 10/30/2024 6:18 AM EDT LAB Phosphorus 4.6 2.1 - 4.7 mg/dL 10/30/2024 6:18 AM EDT LAB Albumin 3.2(L) 3.5 - 5.7 g/dL 10/30/2024 6:18 AM EDT LAB Osmolality, Calculated 309(H) 278 - 305 mOsm/kg 10/30/2024 6:18 AM EDT LAB EGFR 43 10/30/2024 6:18 AM EDT LAB Comment:As of 2021, the estimated GFR [...] 5:41 AM EDT 10/30/2024 5:47 AM EDT Mentegram DEALER ACCOUNT MANAGER LAB BLOOD ORDERABLES Denisse l Result Performing Organization Address City/[facility]/ZIP Co de Phone Number LAB [address] [facility]. [address] * Magnesium (10/30/2024 5:41 AM EDT) Pathologist [facility] Magnesium 2.2 1.5 - 2.5 mg/dL 10/30/2024 6:18 AM EDT LAB Plasma 10/30/2024 5:41 AM EDT 10/30/2024 5:47 AM EDT [facility]entegram [facility] LAB BLOOD ORDERABLES Denisse l Result LAB [address] [facility]. [address] * (ABNORMAL) Hepatic Function Panel (10/30/2024 5:41 AM EDT) Total Bilirubin 3.6(H) 0.0 - 1.5 mg/dL 10/30/2024 6:18 AM EDT LAB Bilirubin, Direct 1.95(H) 0.00 - 0.40 mg/dL 10/30/2024 6:18 AM EDT LAB AST 33 13 - 39 U/L 10/30/2024 6:18 AM EDT LAB ALT 71(H) 7 - 52 U/L 10/30/2024 6:18 AM EDT LAB Alkaline Phosphatase 80 36 - 125 U/L 10/30/2024 6:18 AM EDT LAB Total Protein 4.8(L) 6.4 - 8.9 g/dL 10/30/2024 6:18 AM EDT LAB Albumin 3.2(L) 3.5 - 5.7 g/dL 10/30/2024 6:18 AM EDT LAB Bilirubin, Indirect 1.65(H) 0.00 - 1.10 mg/dL 10/30/2024 6:18 AM EDT LAB Plasma 10/30/2024 5:41 AM EDT 10/30/2024 5:47 AM EDT Beata Horner DEALER ACCOUNT MANAGER LAB BLOOD ORDERABLES Denisse tori Result LAB [address] [place] [address], [facility] * (ABNORMAL) CBC (10/30/2024 5:41 AM EDT) Pathologist [facility] WBC 8.1 3.8 - 10.8 10E3/uL 10/30/2024 8:06 AM EDT LAB RBC 3.29(L) 4.20 - 5.80 10E6/uL 10/30/2024 8:06 AM EDT LAB Hemoglobin 10.1(L) 13.2 - 17.1 g/dL 10/30/2024 8:06 AM EDT LAB Hematocrit 28.8(L) 38.5 - 50.0 % 10/30/2024 8:06 AM EDT LAB MCV 87.6 80.0 - 100.0 fL 10/30/2024 8:06 AM EDT LAB MCH 30.6 27.0 - 33.0 pg 10/30/2024 8:06 AM EDT LAB MCHC 34.9 32.0 - 36.0 g/dL 10/30/2024 8:06 AM EDT LAB RDW 18.1(H) 11.0 - 15.0 % 10/30/2024 8:06 AM EDT LAB Platelets 44(L) 140 - 400 10E3/uL 10/30/2024 8:06 AM EDT LAB Comment: CNV Specimen checked for clots. None detected. MPV 8.3 7.5 - 11.5 fL 10/30/2024 8:06 AM EDT LAB Whole Blood 10/30/2024 5:41 AM EDT 10/30/2024 5:50 AM EDT Beata Horner [facility] LAB BLOOD ORDERABLES Denisse l Result LAB [address] * (ABNORMAL) POC Glucose Monitoring Device (10/29/2024 10:18 PM EDT) POC Glucose Monitoring Device 140(H) 70 - 100 mg/dL 10/29/2024 10:18 PM EDT LAB Blood 10/29/2024 10:1 8 PM EDT 10/29/2024 10:18 PM EDT Semaj Mcnair III, MD POINT OF CARE TEST ORDERABLES Final Result LAB [address] * (ABNORMAL) POC Glucose Monitoring Device (10/29/2024 6:42 PM EDT) POC Glucose Monitoring Device 152(H) 70 - 100 mg/dL 10/29/2024 6:43 PM EDT LAB Blood 10/29/2024 6:42 PM EDT 10/29/2024 6:43 PM EDT Semaj Mcnair III, MD POINT OF CARE TEST ORDERABLES Final Result Performing Organization Address [facility] de Phone Number LAB [address] * (ABNORMAL) POC Glucose Monitoring Device (10/29/2024 11:35 AM EDT) POC Glucose Monitoring Device 130(H) 70 - 100 mg/dL 10/29/2024 11:36 AM EDT LAB Blood 10/29/2024 11:3 5 AM EDT 10/29/2024 11:[address] [facility] Semaj Mcnair III, MD POINT OF CARE TEST ORDERABLES Final Result Performing Organization Address [facility] de Phone Number LAB [address] * ECG 12 lead (MUSE) (10/29/2024 9:34 AM EDT) 10/29/2024 9:34 AM EDT Narrative MUSE - 10/29/2024 10:34 PM EDT Ventricular Rate: 97 BPM Atrial Rate: 97 BPM P-R Interval: 186 ms QRS Duration: 104 ms QT: 382 ms QTc: 485 ms P Banks: 54 degrees R Banks: -21 degrees T Banks: 1 degrees Diagnosis Line: NORMAL SINUS RHYTHM ^ NORMAL ECG ^ Confirmed by JORGE MACIAS ([id number]) on 10/29/2024 10:34:50 PM Afshan Bear MD ECG ORDERABLES Final Result Performing Organization Address City/[facility] Co de Phone Number MUSE * Tacrolimus level (10/29/2024 8:08 AM EDT) Tacrolimus (LC-MS) 10.4 3.0 - 15.0 ng/mL 10/29/2024 2:07 PM EDT LAB Comment:Performed via liquid chromatography tandem mass spectrometry. Detection limit: 1 ng/mL. Individual target concentrations may vary due to target organ and time after transplant. This test has been developed and its performance characteristics determined by [facility] which is certified under the Clinical Laboratory [...] EDT 10/29/2024 8:21 AM EDT Priti Geiger [facility] LAB BLOOD ORDERABLES Final Re sult Performing Organization Address [facility]/ZIP Co de Phone Number LAB [address] * Prepare RBC, leukoreduced, 1 Units (10/29/2024 6:16 AM EDT) Product Code Z4551R26 HCLL Unit Number [id number] HCLL Dispense Status Presumed Transfused_PT HCLL Blood Expiration Date [id number] HCLL Coding System [id number] HCLL Blood Bank Product Shay Plata MD BLOOD BANK PRODUCT O RDERABLES Final Result Performing Organization Address City/[facility]/ZIP Co de Phone Number HCLL * Prepare RBC, leukoreduced, 1 Units (10/29/2024 6:15 AM EDT) Product Code [id number] HCLL Unit Number [id number] HCLL Dispense Status Presumed Transfused_PT HCLL Blood Expiration Date [id number] HCLL Coding System [id number] HCLL Blood Bank Product Carlos Marks MD BLOOD BANK PRODUCT ORDERABL ES Final Result HCLL * Prepare RBC, leukoreduced, 1 Units (10/29/2024 6:15 AM EDT) Product Code H7658H18 HCLL Unit Number [id number] HCLL Dispense Status Presumed Transfused_PT HCLL Blood Expiration Date [id number] HCLL Coding System [id number] HCLL Blood Bank Product John Moreno MD BLOOD BANK PRODUCT ORDERABLE S Final Result HCLL * (ABNORMAL) Renal Function Panel w/EGFR (10/29/2024 5:07 AM EDT) Sodium 144 133 - 146 mmol/L 10/29/2024 5:49 AM EDT LAB Potassium 3.8 3.5 - 5.3 mmol/L 10/29/2024 5:49 AM EDT LAB Chloride 113(H) 98 - 110 mmol/L 10/29/2024 5:49 AM EDT LAB CO2 17(L) 21 - 33 mmol/L 10/29/2024 5:49 AM EDT LAB Anion Gap 14 3 - 16 mmol/L 10/29/2024 5:49 AM EDT LAB BUN 57(H) 7 - 25 mg/dL 10/29/2024 5:49 AM EDT LAB Creatinine 1.93(H) 0.60 - 1.30 mg/dL 10/29/2024 5:49 AM EDT LAB Glucose 110(H) 70 - 100 mg/dL 10/29/2024 5:49 AM EDT LAB Calcium 9.3 8.6 - 10.3 mg/dL 10/29/2024 5:49 AM EDT LAB Phosphorus 4.8(H) 2.1 - 4.7 mg/dL 10/29/2024 5:49 AM EDT LAB Albumin 3.5 3.5 - 5.7 g/dL 10/29/2024 5:49 AM EDT LAB Osmolality, Calculated 314(H) 278 - 305 mOsm/kg 10/29/2024 5:49 AM EDT LAB EGFR 44 10/29/2024 5:49 AM EDT LAB Comment:As of 2021, the estimated GFR [...] 5:07 AM EDT 10/29/2024 5:13 AM EDT [facility] LAB BLOOD ORDERABLES Denisse l Result Performing Organization Address City/[facility]/ZIP Co de Phone Number LAB [address] [facility]. [address] * Magnesium (10/29/2024 5:07 AM EDT) Pathologist [facility] Magnesium 2.1 1.5 - 2.5 mg/dL 10/29/2024 5:49 AM EDT LAB Plasma 10/29/2024 5:07 AM EDT 10/29/2024 5:13 AM EDT [facility] LAB BLOOD ORDERABLES Denisse l Result LAB [address] [facility]. [address] * (ABNORMAL) Hepatic Function Panel (10/29/2024 5:07 AM EDT) Total Bilirubin 4.2(H) 0.0 - 1.5 mg/dL 10/29/2024 5:49 AM EDT LAB Bilirubin, Direct 2.85(H) 0.00 - 0.40 mg/dL 10/29/2024 5:49 AM EDT LAB AST 31 13 - 39 U/L 10/29/2024 5:49 AM EDT LAB ALT 88(H) 7 - 52 U/L 10/29/2024 5:49 AM EDT LAB Alkaline Phosphatase 51 36 - 125 U/L 10/29/2024 5:49 AM EDT LAB Total Protein 5.2(L) 6.4 - 8.9 g/dL 10/29/2024 5:49 AM EDT LAB Albumin 3.5 3.5 - 5.7 g/dL 10/29/2024 5:49 AM EDT LAB Bilirubin, Indirect 1.35(H) 0.00 - 1.10 mg/dL 10/29/2024 5:49 AM EDT LAB Plasma 10/29/2024 5:07 AM EDT 10/29/2024 5:13 AM EDT Beata Horner [facility] LAB BLOOD ORDERABLES Denisse valle Result LAB [address] * (ABNORMAL) CBC (10/29/2024 5:07 AM EDT) Pathologist [facility] WBC 7.8 3.8 - 10.8 10E3/uL 10/29/2024 5:38 AM EDT LAB RBC 3.05(L) 4.20 - 5.80 10E6/uL 10/29/2024 5:38 AM EDT LAB Hemoglobin 9.0(L) 13.2 - 17.1 g/dL 10/29/2024 5:38 AM EDT LAB Hematocrit 26.7(L) 38.5 - 50.0 % 10/29/2024 5:38 AM EDT LAB MCV 87.4 80.0 - 100.0 fL 10/29/2024 5:38 AM EDT LAB MCH 29.7 27.0 - 33.0 pg 10/29/2024 5:38 AM EDT LAB MCHC 33.9 32.0 - 36.0 g/dL 10/29/2024 5:38 AM EDT LAB RDW 18.3(H) 11.0 - 15.0 % 10/29/2024 5:38 AM EDT LAB Platelets 41(L) 140 - 400 10E3/uL 10/29/2024 5:38 AM EDT LAB Comment: CNV Specimen checked for clots. None detected. MPV 7.5 7.5 - 11.5 fL 10/29/2024 5:38 AM EDT LAB Whole Blood 10/29/2024 5:07 AM EDT 10/29/2024 5:13 AM EDT Beata Horner [facility] LAB BLOOD ORDERABLES Denisse valle Result LAB [address] [place] [address], [facility] * (ABNORMAL) TEG-Bypass/ECMO/Liver HN (Factor function, Platelet/Fibrin Clot Strength w/Clot Breakdown, Heparinase In All Channels) (10/29/2024 5:07 AM EDT) Citrated Kaolin Reaction Time (TEGECMOLIVER) 8.9 4.6 - 9.1 minutes 10/29/2024 7:04 AM EDT LAB Citrated Kaolin W/Heparinase Reaction Time (TEGECMOLIVER) 7.4 4.3 - 8.3 minutes 10/29/2024 7:04 AM EDT LAB Citrated Kaolin Maximum Amplitude (TEGECMOLIVER) 52.9 52.0 - 69.0 mm 10/29/2024 7:04 AM EDT LAB Citrated Functional Fibrinogen W/Heparinase Maximum Amplitude(TEGEC MOLIVER) 20.7 15.0 - 34.0 mm 10/29/2024 7:04 AM EDT LAB Citrated Rapid Teg W/Heparinase Maximum Amplitude (TEGECMOLIVER) 49.7(L) 53.0 - 69.0 mm 10/29/2024 7:04 AM EDT LAB Citrated Kaolin w/Heparinase Percent Lysis (TEGECMOLIVER) 0.0 0.0 - 3.2 % 10/29/2024 7:04 AM EDT LAB Whole Blood (Citrate) 10/29/2024 5:07 AM EDT 10/29/2024 5:10 AM EDT us Kemar Sahni MD LAB BLOOD ORDERABLES Final Result LAB [address] [place], [place] [address] * (ABNORMAL) TEG-Bypass/ECMO/Liver HN (Factor function, Platelet/Fibrin Clot Strength w/Clot Breakdown, Heparinase In All Channels) (10/28/2024 11:55 PM EDT) [facility] Citrated Kaolin Reaction Time (TEGECMOLIVER) 8.6 4.6 - 9.1 minutes 10/29/2024 2:01 AM EDT LAB Citrated Kaolin W/Heparinase Reaction Time (TEGECMOLIVER) 8.7(H) 4.3 - 8.3 minutes 10/29/2024 2:01 AM EDT LAB Citrated Kaolin Maximum Amplitude (TEGECMOLIVER) 47.9(L) 52.0 - 69.0 mm 10/29/2024 2:01 AM EDT LAB Citrated Functional Fibrinogen W/Heparinase Maximum Amplitude(TEGEC MOLIVER) 22.0 15.0 - 34.0 mm 10/29/2024 2:01 AM EDT LAB Citrated Rapid Teg W/Heparinase Maximum Amplitude (TEGECMOLIVER) 45.9(L) 53.0 - 69.0 mm 10/29/2024 2:01 AM EDT LAB Citrated Kaolin w/Heparinase Percent Lysis (TEGECMOLIVER) 0.0 0.0 - 3.2 % 10/29/2024 2:01 AM EDT LAB Whole Blood (Citrate) 10/28/2024 11:55 PM EDT 10/28/2024 11:58 PM EDT Kemar Sahni MD LAB BLOOD ORDERABLES Final Result Performing Organization Address City/State/[facility] Co de Phone Number LAB [address] [place] [address], [facility] * (ABNORMAL) CBC, STAT (10/28/2024 8:04 PM EDT) WBC 3.9 3.8 - 10.8 10E3/uL 10/28/2024 8:36 PM EDT LAB RBC 2.66(L) 4.20 - 5.80 10E6/uL 10/28/2024 8:36 PM EDT LAB Hemoglobin 8.0(L) 13.2 - 17.1 g/dL 10/28/2024 8:36 PM EDT LAB Hematocrit 23.0(L) 38.5 - 50.0 % 10/28/2024 8:36 PM EDT LAB MCV 86.4 80.0 - 100.0 fL 10/28/2024 8:36 PM EDT LAB MCH 29.9 27.0 - 33.0 pg 10/28/2024 8:36 PM EDT LAB MCHC 34.6 32.0 - 36.0 g/dL 10/28/2024 8:36 PM EDT LAB RDW 18.6(H) 11.0 - 15.0 % 10/28/2024 8:36 PM EDT LAB Platelets 29(L) 140 - 400 10E3/uL 10/28/2024 8:36 PM EDT LAB Comment: CNV Specimen checked for clots. None detected. MPV 7.8 7.5 - 11.5 fL 10/28/2024 8:36 PM EDT LAB Whole Blood 10/28/2024 8:04 PM EDT 10/28/2024 8:14 PM EDT Carlos Marks MD LAB BLOOD ORDERABLES Final Result LAB [address] * (ABNORMAL) POC Glucose Monitoring Device (10/28/2024 8:03 PM EDT) [facility] POC Glucose Monitoring Device 122(H) 70 - 100 mg/dL 10/28/2024 8:04 PM EDT LAB Blood 10/28/2024 8:03 PM EDT 10/28/2024 8:04 PM EDT Semaj Mcnair III, MD POINT OF CARE TEST ORDERABLES Final Result Performing Organization Address [facility] Co de Phone Number LAB [address] * (ABNORMAL) TEG-Bypass/ECMO/Liver HN (Factor function, Platelet/Fibrin Clot Strength w/Clot Breakdown, Heparinase In All Channels) (10/28/2024 6:39 PM EDT) [facility] Citrated Kaolin Reaction Time (TEGECMOLIVER) 9.0 4.6 - 9.1 minutes 10/28/2024 7:50 PM EDT LAB Citrated Kaolin W/Heparinase Reaction Time (TEGECMOLIVER) 8.3 4.3 - 8.3 minutes 10/28/2024 7:50 PM EDT LAB Citrated Kaolin Maximum Amplitude (TEGECMOLIVER) 47.6(L) 52.0 - 69.0 mm 10/28/2024 7:50 PM EDT LAB Citrated Functional Fibrinogen W/Heparinase Maximum Amplitude(TEGEC MOLIVER) 20.4 15.0 - 34.0 mm 10/28/2024 7:50 PM EDT LAB Citrated Rapid Teg W/Heparinase Maximum Amplitude (TEGECMOLIVER) 44.0(L) 53.0 - 69.0 mm 10/28/2024 7:50 PM EDT LAB Citrated Kaolin w/Heparinase Percent Lysis (TEGECMOLIVER) 0.0 0.0 - 3.2 % 10/28/2024 7:50 PM EDT LAB Whole Blood (Citrate) 10/28/2024 6:39 PM EDT 10/28/2024 6:42 PM EDT Kemar Sahni MD LAB BLOOD ORDERABLES Final Result Performing Organization Address [facility] Co de Phone Number LAB [address] [facility]. [address] * (ABNORMAL) POC Glucose Monitoring Device (10/28/2024 5:31 PM EDT) [facility] Signature POC Glucose Monitoring Device 130(H) 70 - 100 mg/dL 10/28/2024 5:31 PM EDT LAB Blood 10/28/2024 5:31 PM EDT 10/28/2024 5:31 PM EDT us Semaj Mcnair III, MD POINT OF CARE TEST ORDERABLES Final Result Performing Organization Address [facility] de Phone Number LAB [address] [facility]. [address] * Transfuse RBC Transfusion Rate: Per dept routine (10/28/2024 5:23 PM EDT) Shay Plata MD NURSING TREATMENT OR DERABLES - BLOOD ADMIN Final Result Performing Organization Address [facility] Co de Phone Number EXTERNAL * Transfuse RBC Transfusion Rate: Per dept routine, 1 Units (10/28/2024 5:23 PM EDT) us Shay Plata MD NURSING TREATMENT OR DERABLES - BLOOD ADMIN Final Result Performing Organization Address [facility] Co de Phone Number [...] EXAM: US ABDOMEN LIMITED EXAM: US DUPLEX [id number] COMPLETE INDICATION: Post-op liver transplant DATE: 10/28/2024 [...] retrohepatic inferior vena cava is patent. [place] right kidney is partially visualized. A prominent [...] EXAM: US ABDOMEN LIMITED EXAM: US DUPLEX [id number] COMPLETE INDICATION: Post-op liver transplant DATE: 10/28/2024 [...] retrohepatic inferior vena cava is patent. [place] right kidney is partially visualized. A prominent [...] ORDERABLES Fi nal Result * US Duplex Mau-Yhg-Naanval Comp (10/28/2024 4:23 PM EDT) Anatomical Region [...] EXAM: US ABDOMEN LIMITED EXAM: US DUPLEX [id number] COMPLETE INDICATION: Post-op liver transplant DATE: 10/28/2024 [...] retrohepatic inferior vena cava is patent. [place] right kidney is partially visualized. A prominent [...] EXAM: US ABDOMEN LIMITED EXAM: US DUPLEX [id number] COMPLETE INDICATION: Post-op liver transplant DATE: 10/28/2024 [...] retrohepatic inferior vena cava is patent. [place] right kidney is partially visualized. A prominent [...] 4:42 PM EDT us Shay Plata [place] [facility] ORDER[place]LES Fi nal Result * (ABNORMAL) CBC, STAT (10/28/2024 2:49 PM EDT) WBC 4.0 3.8 - 10.8 10E3/uL 10/28/2024 3:07 PM EDT LAB RBC 2.44(L) 4.20 - 5.80 10E6/uL 10/28/2024 3:07 PM EDT LAB Hemoglobin 7.5(L) 13.2 - 17.1 g/dL 10/28/2024 3:07 PM EDT LAB Hematocrit 21.4(L) 38.5 - 50.0 % 10/28/2024 3:07 PM EDT LAB MCV 87.6 80.0 - 100.0 fL 10/28/2024 3:07 PM EDT LAB MCH 30.6 27.0 - 33.0 pg 10/28/2024 3:07 PM EDT LAB MCHC 34.9 32.0 - 36.0 g/dL 10/28/2024 3:07 PM EDT LAB RDW 18.4(H) 11.0 - 15.0 % 10/28/2024 3:07 PM EDT LAB Platelets 30(L) 140 - 400 10E3/uL 10/28/2024 3:07 PM EDT LAB Comment: CNV Specimen checked for clots. None detected. MPV 7.7 7.5 - 11.5 fL 10/28/2024 3:07 PM EDT LAB Whole Blood 10/28/2024 2:49 PM EDT 10/28/2024 2:53 PM EDT us Carlos Marks MD LAB BLOOD ORDERABLES Final Result LAB [address] [place] [address], [facility] * ECG 12 lead (MUSE) (10/28/2024 1:22 PM EDT) 10/28/2024 1:22 PM EDT Narrative MUSE - 10/29/2024 10:34 PM EDT Ventricular Rate: 104 BPM Atrial Rate: 104 BPM P-R Interval: 172 ms QRS Duration: 90 ms QT: 354 ms QTc: 465 ms P Banks: 58 degrees R Banks: -19 degrees T Banks: 38 degrees Diagnosis Line: SINUS TACHYCARDIA ^ OTHERWISE NORMAL ECG ^ ^ Confirmed by JORGE MACIAS ([id number]) on 10/29/2024 10:34:22 PM us Hillary Fernandes PharmD ECG ORDERABLES Final Res ult MUSE * (ABNORMAL) POC Glucose Monitoring Device (10/28/2024 12:54 PM EDT) [facility] POC Glucose Monitoring Device 119(H) 70 - 100 mg/dL 10/28/2024 12:55 PM EDT LAB Blood 10/28/2024 12:5 4 PM EDT 10/28/2024 12:55 PM EDT us Semaj Mcnair III, MD POINT OF CARE TEST ORDERABLES Final Result Performing Organization Address [facility] Co de Phone Number LAB [address] * Transfuse RBC Transfusion Rate: Per [...] Center/ZIP Co de Phone Number EXTERNAL * Protime-INR, STAT (10/28/2024 11:09 AM EDT) Protime 14.3 12.1 - 15.1 seconds 10/28/2024 11:29 AM EDT LAB INR 1.1 0.9 - 1.1 10/28/2024 11:29 AM EDT LAB Comment: RECOMMENDED THERAPEUTIC RANGES USING INR : Stable oral anticoagulant therapy: 2.0 - 3.0 Mechanical prosthetic heart valve: 2.5 - 3.5 Recurrent acute myocardial infarction: 2.5 - 3.5 Plasma 10/28/2024 11:0 9 AM EDT 10/28/2024 11:16 AM EDT us Carlos Marks MD LAB BLOOD ORDERABLES Final Result Performing Organization Address [facility] Co de Phone Number LAB [address] * (ABNORMAL) Lactic Acid, STAT (10/28/2024 11:09 AM EDT) Lactate 0.3(L) 0.5 - 2.2 mmol/L 10/28/2024 11:37 AM EDT LAB Plasma 10/28/2024 11:0 9 AM EDT 10/28/2024 11:15 AM EDT us Carlos Marks MD LAB BLOOD ORDERABLES Final Result Performing Organization Address [facility] Co de Phone Number LAB [address] [facility]. [address] * Magnesium, STAT (10/28/2024 11:09 AM EDT) Magnesium 2.1 1.5 - 2.5 mg/dL 10/28/2024 11:47 AM EDT LAB Plasma 10/28/2024 11:0 9 AM EDT 10/28/2024 11:16 AM EDT us Carlos Marks MD LAB BLOOD ORDERABLES Final Result LAB [address] [place] [id number], [facility] * (ABNORMAL) Renal Function Panel w/EGFR, STAT (10/28/2024 11:09 AM EDT) Sodium 144 133 - 146 mmol/L 10/28/2024 11:47 AM EDT LAB Potassium 3.4(L) 3.5 - 5.3 mmol/L 10/28/2024 11:47 AM EDT LAB Chloride 112(H) 98 - 110 mmol/L 10/28/2024 11:47 AM EDT LAB CO2 22 21 - 33 mmol/L 10/28/2024 11:47 AM EDT LAB Anion Gap 10 3 - 16 mmol/L 10/28/2024 11:47 AM EDT LAB BUN 57(H) 7 - 25 mg/dL 10/28/2024 11:47 AM EDT LAB Creatinine 2.01(H) 0.60 - 1.30 mg/dL 10/28/2024 11:47 AM EDT LAB Glucose 108(H) 70 - 100 mg/dL 10/28/2024 11:47 AM EDT LAB Calcium 8.8 8.6 - 10.3 mg/dL 10/28/2024 11:47 AM EDT LAB Phosphorus 4.0 2.1 - 4.7 mg/dL 10/28/2024 11:47 AM EDT LAB Albumin 3.3(L) 3.5 - 5.7 g/dL 10/28/2024 11:47 AM EDT LAB Osmolality, Calculated 314(H) 278 - 305 mOsm/kg 10/28/2024 11:47 AM EDT LAB EGFR 42 10/28/2024 11:47 AM EDT LAB Comment:As of 2021, the estimated GFR [...] Marks MD LAB BLOOD ORDERABLES Final Result LAB [address] * (ABNORMAL) TEG-Bypass/ECMO/Liver HN (Factor function, Platelet/Fibrin Clot Strength w/Clot Breakdown, Heparinase In All Channels) (10/28/2024 11:09 AM EDT) [facility] Citrated Kaolin Reaction Time (TEGECMOLIVER) 9.2(H) 4.6 - 9.1 minutes 10/28/2024 12:30 PM EDT LAB Citrated Kaolin W/Heparinase Reaction Time (TEGECMOLIVER) 9.6(H) 4.3 - 8.3 minutes 10/28/2024 12:30 PM EDT LAB Citrated Kaolin Maximum Amplitude (TEGECMOLIVER) 51.2(L) 52.0 - 69.0 mm 10/28/2024 12:30 PM EDT LAB Citrated Functional Fibrinogen W/Heparinase Maximum Amplitude(TEGEC MOLIVER) 21.6 15.0 - 34.0 mm 10/28/2024 12:30 PM EDT LAB Citrated Rapid Teg W/Heparinase Maximum Amplitude (TEGECMOLIVER) 49.3(L) 53.0 - 69.0 mm 10/28/2024 12:30 PM EDT LAB Citrated Kaolin w/Heparinase Percent Lysis (TEGECMOLIVER) 0.0 0.0 - 3.2 % 10/28/2024 12:30 PM EDT LAB Whole Blood (Citrate) 10/28/2024 11:09 AM EDT 10/28/2024 11:14 AM EDT Kemar Sahni MD LAB BLOOD ORDERABLES Final Result LAB [address] [place] [address], [facility] * (ABNORMAL) CBC (10/28/2024 10:21 AM EDT) WBC 4.1 3.8 - 10.8 10E3/uL 10/28/2024 10:41 AM EDT LAB RBC 2.30(L) 4.20 - 5.80 10E6/uL 10/28/2024 10:41 AM EDT LAB Hemoglobin 7.1(L) 13.2 - 17.1 g/dL 10/28/2024 10:41 AM EDT LAB Hematocrit 20.4(L) 38.5 - 50.0 % 10/28/2024 10:41 AM EDT LAB MCV 88.5 80.0 - 100.0 fL 10/28/2024 10:41 AM EDT LAB MCH 30.7 27.0 - 33.0 pg 10/28/2024 10:41 AM EDT LAB MCHC 34.7 32.0 - 36.0 g/dL 10/28/2024 10:41 AM EDT LAB RDW 18.7(H) 11.0 - 15.0 % 10/28/2024 10:41 AM EDT LAB Platelets 37(L) 140 - 400 10E3/uL 10/28/2024 10:41 AM EDT LAB Comment: CNV Specimen checked for clots. None detected. MPV 7.6 7.5 - 11.5 fL 10/28/2024 10:41 AM EDT LAB Whole Blood 10/28/2024 10:2 1 AM EDT 10/28/2024 10:29 AM EDT Carlos Marks MD LAB BLOOD ORDERABLES Final Result Performing Organization Address City/[facility]/ZIP Co de Phone Number LAB [address] [facility]. [address] * POC Glucose Monitoring Device (10/28/2024 9:07 AM EDT) POC Glucose Monitoring Device 97 70 - 100 mg/dL 10/28/2024 9:08 AM EDT [facility] Blood 10/28/2024 9:07 AM EDT 10/28/2024 9:08 AM EDT Semaj Mcnair III, MD POINT OF CARE TEST ORDERABLES Final Result Performing Organization Address [facility] de Phone Number LAB [address] [facility]. [address] * (ABNORMAL) Tacrolimus level (10/28/2024 8:20 AM EDT) Pathologist [facility] Tacrolimus (LC-MS) <1.0(L) 3.0 - 15.0 ng/mL 10/28/2024 2:02 PM EDT LAB Comment:Performed via liquid chromatography tandem mass spectrometry. Detection limit: 1 ng/mL. Individual target concentrations may vary due to target organ and time after transplant. This test has been developed and its performance characteristics determined by [facility] which is certified under [...] Final Re sult Performing Organization Address [facility]/ZIP Co de Phone Number LAB [address] [facility]. [address] * (ABNORMAL) POC Glucose Monitoring Device (10/28/2024 8:10 AM EDT) POC Glucose Monitoring Device 102(H) 70 - 100 mg/dL 10/28/2024 8:11 AM EDT LAB Blood 10/28/2024 8:10 AM EDT 10/28/2024 8:11 AM EDT Semaj Mcnair III, MD POINT OF CARE TEST ORDERABLES Final Result Performing Organization Address [facility] Co de Phone Number [facility] [address] [place] [address]. [address] * POC Glucose Monitoring Device (10/28/2024 6:17 AM EDT) POC Glucose Monitoring Device 100 70 - 100 mg/dL 10/28/2024 6:18 AM EDT LAB Blood 10/28/2024 6:17 AM EDT 10/28/2024 6:18 AM EDT Semaj Mcnair III, MD POINT OF CARE TEST ORDERABLES Final Result Performing Organization Address [facility] de Phone Number [facility] [address] [place] [address]. [address] * Prepare Platelets, leukoreduced (10/28/2024 6:15 AM EDT) Product Code M0403X64 HCLL Unit Number [id number] HCLL Dispense Status Presumed Transfused_PT HCLL Blood Expiration Date HCLL Coding System [id number] HCLL Product Code F9307Z61 HCLL Unit Number [id number] HCLL Dispense Status Presumed Transfused_PT HCLL Blood Expiration Date HCLL Coding System [id number] HCLL us Attending Provider Unknown BLOOD BANK PRODUCT OR DERABLES Final Result HCLL * Prepare Fresh Frozen Plasma (10/28/2024 6:15 AM EDT) Product Code D9493R42 HCLL Unit Number [id number] HCLL Dispense Status Released from Crossmatch_RE HCLL Blood Expiration Date HCLL Coding System WCUB178 HCLL Product Code N0483V57 HCLL Unit Number [id number] HCLL Dispense Status Presumed Transfused_PT HCLL Blood Expiration Date HCLL Coding System [id number] HCLL Product Code G6738B08 HCLL Unit Number [id number] HCLL Dispense Status Released from Crossmatch_RE HCLL Blood Expiration Date HCLL Coding System TCPA700 HCLL Product Code O2357B79 HCLL Unit Number [id number] HCLL Dispense Status Presumed Transfused_PT HCLL Blood Expiration Date HCLL Coding System NCIE763 HCLL Product Code H0817F23 HCLL Unit Number [id number] HCLL Dispense Status Released from Crossmatch_RE HCLL Blood Expiration Date [id number] HCLL Coding System [id number] HCLL Attending Provider Unknown BLOOD BANK PRODUCT OR DERABLES Final Result HCLL * Prepare RBC, leukoreduced (10/28/2024 6:15 AM EDT) Product Code C3459L20 HCLL Unit Number [id number] HCLL Dispense Status Released from Crossmatch_RE HCLL Blood Expiration Date [id number] HCLL Coding System DEWX851 HCLL Product Code M4393J81 HCLL Unit Number [id number] HCLL Dispense Status Presumed Transfused_PT HCLL Blood Expiration Date [id number] HCLL Coding System FGWV089 HCLL Product Code P7200Z15 HCLL Unit Number [id number] HCLL Dispense Status Released from Crossmatch_RE HCLL Blood Expiration Date [id number] HCLL Coding System CPVU272 HCLL Product Code N5322E51 HCLL Unit Number [id number] HCLL Dispense Status Presumed Transfused_PT HCLL Blood Expiration Date [id number] HCLL Coding System ZDBX355 HCLL Product Code I9154J17 HCLL Unit Number [id number] HCLL Dispense Status Released from Crossmatch_RE HCLL Blood Expiration Date HCLL Coding System [id number] HCLL Attending Provider Unknown BLOOD BANK PRODUCT OR DERABLES Final Result Performing Organization Address [facility] Co de Phone Number HCLL * Prepare Platelets, leukoreduced, 1 Units (10/28/2024 6:15 AM EDT) Product Code M5912R70 HCLL Unit Number [id number] HCLL Dispense Status Presumed Transfused_PT HCLL Blood Expiration Date HCLL Coding System [id number] HCLL Blood Bank Product John Pina MD BLOOD BANK PRODUCT ORDERABLES F inal Result Performing Organization Address [facility] de Phone Number HCLL * Prepare Cryoprecipitate, 1 Units (10/28/2024 6:15 AM EDT) Product Code H5601B10 HCLL Unit Number [id number] HCLL Dispense Status Presumed Transfused_PT HCLL Blood Expiration Date HCLL Coding System FQBP233 HCLL Product Code C5217P85 HCLL Unit Number [id number] HCLL Dispense Status Presumed Transfused_PT HCLL Blood Expiration Date HCLL Coding System VIUO728 HCLL Blood Bank Product John Pina MD BLOOD BANK PRODUCT ORDERABLES F inal Result Performing Organization Address [facility]/ZIP Co de Phone Number HCLL * Prepare Fresh Frozen Plasma, 1 Units (10/28/2024 6:15 AM EDT) Product Code F7233T58 HCLL Unit Number [id number] HCLL Dispense Status Presumed Transfused_PT HCLL Blood Expiration Date [id number] HCLL Coding System ORFD595 HCLL Blood Bank Product John Pina MD BLOOD BANK PRODUCT ORDERABLES F inal Result Performing Organization Address [facility]/ZIP Co de Phone Number HCLL * Prepare Cryoprecipitate, 1 Units (10/28/2024 6:15 AM EDT) Product Code W9851B22 HCLL Unit Number [id number] HCLL Dispense Status Presumed Transfused_PT HCLL Blood Expiration Date HCLL Coding System LLUG529 HCLL Product Code B6125V85 HCLL Unit Number [id number] HCLL Dispense Status Presumed Transfused_PT HCLL Blood Expiration Date [id number] HCLL Coding System DJHM993 HCLL Product Code T4245Q67 HCLL Unit Number [id number] HCLL Dispense Status Presumed Transfused_PT HCLL Blood Expiration Date 442427791382 HCLL Coding System EOQA097 HCLL Product Code R3195E04 HCLL Unit Number [id number] HCLL Dispense Status Presumed Transfused_PT HCLL Blood Expiration Date 534618446783 HCLL Coding System ZRVB254 HCLL Blood Bank Product John Pina MD BLOOD BANK PRODUCT ORDERABLES F inal Result HCLL * (ABNORMAL) POC Glucose Monitoring Device (10/28/2024 4:55 AM EDT) POC Glucose Monitoring Device 104(H) 70 - 100 mg/dL 10/28/2024 4:57 AM EDT LAB Blood 10/28/2024 4:55 AM EDT 10/28/2024 4:57 AM EDT Semaj Mcnair III, MD POINT OF CARE TEST ORDERABLES Final Result LAB [address] * TEG-Bypass/ECMO/Liver HN (Factor function, Platelet/Fibrin Clot Strength w/Clot Breakdown, Heparinase In All Channels) (10/28/2024 4:13 AM EDT) [facility] Citrated Kaolin Reaction Time (TEGECMOLIVER) 7.2 4.6 - 9.1 minutes 10/28/2024 5:38 AM EDT LAB Citrated Kaolin W/Heparinase Reaction Time (TEGECMOLIVER) 7.8 4.3 - 8.3 minutes 10/28/2024 5:38 AM EDT LAB Citrated Kaolin Maximum Amplitude (TEGECMOLIVER) 53.0 52.0 - 69.0 mm 10/28/2024 5:38 AM EDT LAB Citrated Functional Fibrinogen W/Heparinase Maximum Amplitude(TEGEC MOLIVER) 21.4 15.0 - 34.0 mm 10/28/2024 5:38 AM EDT LAB Citrated Rapid Teg W/Heparinase Maximum Amplitude (TEGECMOLIVER) 54.7 53.0 - 69.0 mm 10/28/2024 5:38 AM EDT LAB Citrated Kaolin w/Heparinase Percent Lysis (TEGECMOLIVER) 0.0 0.0 - 3.2 % 10/28/2024 5:38 AM EDT LAB Whole Blood (Citrate) 10/28/2024 4:13 AM EDT 10/28/2024 4:28 AM EDT Kemar Sahni MD LAB BLOOD ORDERABLES Final Result LAB [address] * Protime-INR (10/28/2024 4:13 AM EDT) Protime 14.6 12.1 - 15.1 seconds 10/28/2024 4:53 AM EDT HEALTH LAB INR 1.1 0.9 - 1.1 10/28/2024 4:53 AM EDT LAB Comment: RECOMMENDED THERAPEUTIC RANGES USING INR : Stable oral anticoagulant therapy: 2.0 - 3.0 Mechanical prosthetic heart valve: 2.5 - 3.5 Recurrent acute myocardial infarction: 2.5 - 3.5 Plasma 10/28/2024 4:13 AM EDT 10/28/2024 4:41 AM EDT Kemar Sahni MD LAB BLOOD ORDERABLES Final Result Performing Organization Address City/[facility]/ZIP Co de Phone Number LAB [address] [facility]. [address] * Magnesium (10/28/2024 4:13 AM EDT) Magnesium 2.2 1.5 - 2.5 mg/dL 10/28/2024 5:15 AM EDT LAB Plasma 10/28/2024 4:13 AM EDT 10/28/2024 4:41 AM EDT Kemar Sahni MD LAB BLOOD ORDERABLES Final Result LAB [address] * (ABNORMAL) Hepatic Function Panel (10/28/2024 4:13 AM EDT) Total Bilirubin 2.3(H) 0.0 - 1.5 mg/dL 10/28/2024 5:15 AM EDT LAB Bilirubin, Direct 1.67(H) 0.00 - 0.40 mg/dL 10/28/2024 5:15 AM EDT LAB AST 44(H) 13 - 39 U/L 10/28/2024 5:15 AM EDT LAB ALT 101(H) 7 - 52 U/L 10/28/2024 5:15 AM EDT LAB Alkaline Phosphatase 26(L) 36 - 125 U/L 10/28/2024 5:15 AM EDT LAB Total Protein 4.5(L) 6.4 - 8.9 g/dL 10/28/2024 5:15 AM EDT LAB Albumin 3.1(L) 3.5 - 5.7 g/dL 10/28/2024 5:15 AM EDT LAB Bilirubin, Indirect 0.63 0.00 - 1.10 mg/dL 10/28/2024 5:15 AM EDT LAB Plasma 10/28/2024 4:13 AM EDT 10/28/2024 4:41 AM EDT us Kemar Sahni MD LAB BLOOD ORDERABLES Final Result Performing Organization Address City/State/[facility] Co de Phone Number LAB [address] * (ABNORMAL) Renal Function Panel w/EGFR (10/28/2024 4:13 AM EDT) Sodium 142 133 - 146 mmol/L 10/28/2024 5:15 AM EDT LAB Potassium 3.5 3.5 - 5.3 mmol/L 10/28/2024 5:15 AM EDT LAB Chloride 111(H) 98 - 110 mmol/L 10/28/2024 5:15 AM EDT LAB CO2 22 21 - 33 mmol/L 10/28/2024 5:15 AM EDT LAB Anion Gap 9 3 - 16 mmol/L 10/28/2024 5:15 AM EDT LAB BUN 58(H) 7 - 25 mg/dL 10/28/2024 5:15 AM EDT LAB Creatinine 2.24(H) 0.60 - 1.30 mg/dL 10/28/2024 5:15 AM EDT LAB Glucose 103(H) 70 - 100 mg/dL 10/28/2024 5:15 AM EDT LAB Calcium 9.1 8.6 - 10.3 mg/dL 10/28/2024 5:15 AM EDT LAB Phosphorus 4.8(H) 2.1 - 4.7 mg/dL 10/28/2024 5:15 AM EDT LAB Albumin 3.1(L) 3.5 - 5.7 g/dL 10/28/2024 5:15 AM EDT LAB Osmolality, Calculated 310(H) 278 - 305 mOsm/kg 10/28/2024 5:15 AM EDT LAB EGFR 37 10/28/2024 5:15 AM EDT LAB Comment:As of 2021, the estimated GFR [...] Sahni MD LAB BLOOD ORDERABLES Final Result LAB [address] [place] [address], [facility] * (ABNORMAL) CBC (10/28/2024 4:13 AM EDT) WBC 4.5 3.8 - 10.8 10E3/uL 10/28/2024 5:09 AM EDT LAB RBC 2.39(L) 4.20 - 5.80 10E6/uL 10/28/2024 5:09 AM EDT LAB Hemoglobin 7.3(L) 13.2 - 17.1 g/dL 10/28/2024 5:09 AM EDT LAB Hematocrit 21.0(L) 38.5 - 50.0 % 10/28/2024 5:09 AM EDT LAB MCV 87.8 80.0 - 100.0 fL 10/28/2024 5:09 AM EDT LAB MCH 30.5 27.0 - 33.0 pg 10/28/2024 5:09 AM EDT LAB MCHC 34.7 32.0 - 36.0 g/dL 10/28/2024 5:09 AM EDT LAB RDW 18.7(H) 11.0 - 15.0 % 10/28/2024 5:09 AM EDT LAB Platelets 38(L) 140 - 400 10E3/uL 10/28/2024 5:09 AM EDT LAB Comment: CNV Specimen checked for clots. None detected. MPV 7.6 7.5 - 11.5 fL 10/28/2024 5:09 AM EDT LAB Whole Blood 10/28/2024 4:13 AM EDT 10/28/2024 4:41 AM EDT Kemar Sahni MD LAB BLOOD ORDERABLES Final Result Performing Organization Address City/[facility]/ZIP Co de Phone Number LAB [address] [facility]. [address] * (ABNORMAL) POC Glucose Monitoring Device (10/28/2024 4:04 AM EDT) POC Glucose Monitoring Device 103(H) 70 - 100 mg/dL 10/28/2024 4:05 AM EDT LAB Blood 10/28/2024 4:04 AM EDT 10/28/2024 4:05 AM EDT Semaj Mcnair III, MD POINT OF CARE TEST ORDERABLES Final Result LAB [address] * (ABNORMAL) POC Glucose Monitoring Device (10/28/2024 3:00 AM EDT) POC Glucose Monitoring Device 106(H) 70 - 100 mg/dL 10/28/2024 3:01 AM EDT LAB Blood 10/28/2024 3:00 AM EDT 10/28/2024 3:01 AM EDT Semaj Mcnair III, MD POINT OF CARE TEST ORDERABLES Final Result LAB [address] [facility]. [address] * (ABNORMAL) POC Glucose Monitoring Device (10/28/2024 2:32 AM EDT) POC Glucose Monitoring Device 109(H) 70 - 100 mg/dL 10/28/2024 2:33 AM EDT LAB Blood 10/28/2024 2:32 AM EDT 10/28/2024 2:33 AM EDT us Semaj Mcnair III, MD POINT OF CARE TEST ORDERABLES Final Result LAB [address] [facility]. [address] * (ABNORMAL) POC Glucose Monitoring Device (10/28/2024 2:14 AM EDT) POC Glucose Monitoring Device 115(H) 70 - 100 mg/dL 10/28/2024 2:15 AM EDT LAB Blood 10/28/2024 2:14 AM EDT 10/28/2024 2:15 AM EDT us Semaj Mcnair III, MD POINT OF CARE TEST ORDERABLES Final Result LAB [address] * (ABNORMAL) POC Glucose Monitoring Device (10/28/2024 2:03 AM EDT) POC Glucose Monitoring Device 101(H) 70 - 100 mg/dL 10/28/2024 2:04 AM EDT LAB Blood 10/28/2024 2:03 AM EDT 10/28/2024 2:04 AM EDT Semaj Mcnair III, MD POINT OF CARE TEST ORDERABLES Final Result Performing Organization Address City/[facility] Co de Phone Number LAB [address] * Transfuse RBC Transfusion Rate: Per dept routine (10/28/2024 1:51 AM EDT) John Moreno MD NURSING TREATMENT ORDERABLES - BLOOD ADMIN Final Result Performing Organization Address City/[facility] Co de Phone Number EXTERNAL * Transfuse RBC Transfusion Rate: Per dept routine, 1 Units (10/28/2024 1:51 AM EDT) John Moreno MD NURSING TREATMENT ORDERABLES - BLOOD ADMIN Final Result Performing Organization Address City/[facility] de Phone Number EXTERNAL * (ABNORMAL) TEG-Bypass/ECMO/Liver HN (Factor function, Platelet/Fibrin Clot Strength w/Clot Breakdown, Heparinase In All Channels) (10/28/2024 12:05 AM EDT) Citrated Kaolin Reaction Time (TEGECMOLIVER) 7.5 4.6 - 9.1 minutes 10/28/2024 1:22 AM EDT LAB Citrated Kaolin W/Heparinase Reaction Time (TEGECMOLIVER) 7.7 4.3 - 8.3 minutes 10/28/2024 1:22 AM EDT LAB Citrated Kaolin Maximum Amplitude (TEGECMOLIVER) 54.4 52.0 - 69.0 mm 10/28/2024 1:22 AM EDT LAB Citrated Functional Fibrinogen W/Heparinase Maximum Amplitude(TEGEC MOLIVER) 20.4 15.0 - 34.0 mm 10/28/2024 1:22 AM EDT LAB Citrated Rapid Teg W/Heparinase Maximum Amplitude (TEGECMOLIVER) 51.0(L) 53.0 - 69.0 mm 10/28/2024 1:22 AM EDT LAB Citrated Kaolin w/Heparinase Percent Lysis (TEGECMOLIVER) 0.0 0.0 - 3.2 % 10/28/2024 1:22 AM EDT LAB Whole Blood (Citrate) 10/28/2024 12:05 AM EDT 10/28/2024 12:09 AM EDT Kemar Sahni MD LAB BLOOD ORDERABLES Final Result Performing Organization Address City/[facility] Co de Phone Number LAB [address] [facility]. [address] * Magnesium (10/28/2024 12:05 AM EDT) Magnesium 2.2 1.5 - 2.5 mg/dL 10/28/2024 1:59 AM EDT LAB Plasma 10/28/2024 12:0 5 AM EDT 10/28/2024 12:11 AM EDT Kemar Sahni MD LAB BLOOD ORDERABLES Final Result Performing Organization Address City/[facility]/ZIP Co de Phone Number LAB [address] [facility]. [address] * (ABNORMAL) Renal Function Panel w/EGFR (10/28/2024 12:05 AM EDT) Sodium 144 133 - 146 mmol/L 10/28/2024 1:59 AM EDT LAB Potassium 3.4(L) 3.5 - 5.3 mmol/L 10/28/2024 1:59 AM EDT LAB Chloride 112(H) 98 - 110 mmol/L 10/28/2024 1:59 AM EDT LAB CO2 19(L) 21 - 33 mmol/L 10/28/2024 1:59 AM EDT HEALTH LAB Anion Gap 13 3 - 16 mmol/L 10/28/2024 1:59 AM EDT LAB BUN 59(H) 7 - 25 mg/dL 10/28/2024 1:59 AM EDT LAB Creatinine 2.42(H) 0.60 - 1.30 mg/dL 10/28/2024 1:59 AM EDT LAB Glucose 118(H) 70 - 100 mg/dL 10/28/2024 1:59 AM EDT LAB Calcium 9.0 8.6 - 10.3 mg/dL 10/28/2024 1:59 AM EDT LAB Phosphorus 5.3(H) 2.1 - 4.7 mg/dL 10/28/2024 1:59 AM EDT LAB Albumin 3.1(L) 3.5 - 5.7 g/dL 10/28/2024 1:59 AM EDT LAB Osmolality, Calculated 316(H) 278 - 305 mOsm/kg 10/28/2024 1:59 AM EDT LAB EGFR 34 10/28/2024 1:59 AM EDT LAB Comment:As of 2021, the estimated GFR [...] Sahni MD LAB BLOOD ORDERABLES Final Result LAB [address] [facility]. [address] * (ABNORMAL) Differential (10/28/2024 12:05 AM EDT) Neutrophils Relative 88.6(H) 40.0 - 80.0 % 10/28/2024 12:41 AM EDT LAB Lymphocytes Relative 2.5(L) 15.0 - 45.0 % 10/28/2024 12:41 AM EDT LAB Monocytes Relative 6.1 0.0 - 12.0 % 10/28/2024 12:41 AM EDT LAB Eosinophils Relative 2.4 0.0 - 8.0 % 10/28/2024 12:41 AM EDT LAB Basophils Relative 0.4 0.0 - 1.0 % 10/28/2024 12:41 AM EDT LAB nRBC 0 0 - 0 /100 WBC 10/28/2024 12:41 AM EDT LAB Neutrophils Absolute 4,341 1,520 - 8,640 /uL 10/28/2024 12:41 AM EDT LAB Lymphocytes Absolute 123(L) 570 - 4,860 /uL 10/28/2024 12:41 AM EDT LAB Monocytes Absolute 299 0 - 1,296 /uL 10/28/2024 12:41 AM EDT LAB Eosinophils Absolute 118 0 - 864 /uL 10/28/2024 12:41 AM EDT LAB Basophils Absolute 20 0 - 108 /uL 10/28/2024 12:41 AM EDT LAB Whole Blood 10/28/2024 12:0 5 AM EDT 10/28/2024 12:11 AM EDT Kemar Sahni MD LAB BLOOD ORDERABLES Final Result LAB [address] * (ABNORMAL) CBC (10/28/2024 12:05 AM EDT) WBC 4.9 3.8 - 10.8 10E3/uL 10/28/2024 12:41 AM EDT LAB RBC 2.18(L) 4.20 - 5.80 10E6/uL 10/28/2024 12:41 AM EDT LAB Hemoglobin 6.7(L) 13.2 - 17.1 g/dL 10/28/2024 12:41 AM EDT LAB Hematocrit 19.2(L) 38.5 - 50.0 % 10/28/2024 12:41 AM EDT LAB MCV 87.8 80.0 - 100.0 fL 10/28/2024 12:41 AM EDT LAB MCH 30.6 27.0 - 33.0 pg 10/28/2024 12:41 AM EDT LAB MCHC 34.8 32.0 - 36.0 g/dL 10/28/2024 12:41 AM EDT LAB RDW 19.6(H) 11.0 - 15.0 % 10/28/2024 12:41 AM EDT LAB Platelets 45(L) 140 - 400 10E3/uL 10/28/2024 12:41 AM EDT LAB Comment: CNV Specimen checked for clots. None detected. MPV 7.8 7.5 - 11.5 fL 10/28/2024 12:41 AM EDT LAB Whole Blood 10/28/2024 12:0 5 AM EDT 10/28/2024 12:11 AM EDT Kemar Sahni MD LAB BLOOD ORDERABLES Final Result LAB [address] [place] [address], [facility] * (ABNORMAL) POC Glucose Monitoring Device (10/28/2024 12:03 AM EDT) POC Glucose Monitoring Device 122(H) 70 - 100 mg/dL 10/28/2024 12:04 AM EDT LAB Blood 10/28/2024 12:0 3 AM EDT 10/28/2024 12:04 AM EDT Semaj Mcnair III, MD POINT OF CARE TEST ORDERABLES Final Result Performing Organization Address City/[facility] Co de Phone Number [facility] [address] * (ABNORMAL) POC Glucose Monitoring Device (10/27/2024 10:03 PM EDT) POC Glucose Monitoring Device 127(H) 70 - 100 mg/dL 10/27/2024 10:03 PM EDT LAB Blood 10/27/2024 10:0 3 PM EDT 10/27/2024 10:03 PM EDT Semaj Mcnair III, MD POINT OF CARE TEST ORDERABLES Final Result Performing Organization Address [facility] Co de Phone Number [address] [facility]. [address] * (ABNORMAL) POC Glucose Monitoring Device (10/27/2024 8:06 PM EDT) POC Glucose Monitoring Device 128(H) 70 - 100 mg/dL 10/27/2024 8:45 PM EDT LAB Blood 10/27/2024 8:06 PM EDT 10/27/2024 8:45 PM EDT Semaj Mcnair III, MD POINT OF CARE TEST ORDERABLES Final Result Performing Organization Address City/[facility] Co de Phone Number [place] [address] [address] * (ABNORMAL) POC Glucose Monitoring Device (10/27/2024 6:00 PM EDT) POC Glucose Monitoring Device 128(H) 70 - 100 mg/dL 10/27/2024 6:00 PM EDT LAB Blood 10/27/2024 6:00 PM EDT 10/27/2024 6:00 PM EDT us Semaj Mcnair III, MD POINT OF CARE TEST ORDERABLES Final Result Performing Organization Address City/[facility]/ZIP Co de Phone Number LAB [address] [facility]. [address] * Lactic Acid, STAT (10/27/2024 5:41 PM EDT) Lactate 0.5 0.5 - 2.2 mmol/L 10/27/2024 6:28 PM EDT LAB Plasma 10/27/2024 5:41 PM EDT 10/27/2024 5:49 PM EDT Narrative LAB - 10/27/2024 6:28 PM EDT Redraw us John Moreno MD LAB BLOOD ORDERABLES Final R esult Performing Organization Address [facility]/ZIP Co de Phone Number LAB [address] [facility]. [address] * (ABNORMAL) Hepatic Function Panel, STAT (10/27/2024 5:13 PM EDT) Total Bilirubin 1.7(H) 0.0 - 1.5 mg/dL 10/27/2024 5:50 PM EDT LAB Bilirubin, Direct 1.17(H) 0.00 - 0.40 mg/dL 10/27/2024 5:50 PM EDT LAB AST 60(H) 13 - 39 U/L 10/27/2024 5:50 PM EDT LAB ALT 134(H) 7 - 52 U/L 10/27/2024 5:50 PM EDT LAB Alkaline Phosphatase 27(L) 36 - 125 U/L 10/27/2024 5:50 PM EDT LAB Total Protein 4.1(L) 6.4 - 8.9 g/dL 10/27/2024 5:50 PM EDT LAB Albumin 2.9(L) 3.5 - 5.7 g/dL 10/27/2024 5:50 PM EDT LAB Bilirubin, Indirect 0.53 0.00 - 1.10 mg/dL 10/27/2024 5:50 PM EDT LAB Plasma 10/27/2024 5:13 PM EDT 10/27/2024 5:23 PM EDT us Shay Plata MD LAB BLOOD ORDERABLES Final Result LAB [address] * (ABNORMAL) TEG-Bypass/ECMO/Liver HN (Factor function, Platelet/Fibrin Clot Strength w/Clot Breakdown, Heparinase In All Channels) (10/27/2024 5:13 PM EDT) [facility] Citrated Kaolin Reaction Time (TEGECMOLIVER) 8.0 4.6 - 9.1 minutes 10/27/2024 6:56 PM EDT LAB Citrated Kaolin W/Heparinase Reaction Time (TEGECMOLIVER) 6.8 4.3 - 8.3 minutes 10/27/2024 6:56 PM EDT LAB Citrated Kaolin Maximum Amplitude (TEGECMOLIVER) 55.4 52.0 - 69.0 mm 10/27/2024 6:56 PM EDT LAB Citrated Functional Fibrinogen W/Heparinase Maximum Amplitude(TEGEC MOLIVER) 22.9 15.0 - 34.0 mm 10/27/2024 6:56 PM EDT LAB Citrated Rapid Teg W/Heparinase Maximum Amplitude (TEGECMOLIVER) 50.8(L) 53.0 - 69.0 mm 10/27/2024 6:56 PM EDT LAB Citrated Kaolin w/Heparinase Percent Lysis (TEGECMOLIVER) 0.1 0.0 - 3.2 % 10/27/2024 6:56 PM EDT LAB Whole Blood (Citrate) 10/27/2024 5:13 PM EDT 10/27/2024 5:20 PM EDT Kemar Sahni MD LAB BLOOD ORDERABLES Final Result LAB [address] * (ABNORMAL) Protime-INR (10/27/2024 5:13 PM EDT) Pathologist [facility] Protime 15.2(H) 12.1 - 15.1 seconds 10/27/2024 5:40 PM EDT LAB INR 1.1 0.9 - 1.1 10/27/2024 5:40 PM EDT LAB Comment: RECOMMENDED THERAPEUTIC RANGES USING INR : Stable oral anticoagulant therapy: 2.0 - 3.0 Mechanical prosthetic heart valve: 2.5 - 3.5 Recurrent acute myocardial infarction: 2.5 - 3.5 Plasma 10/27/2024 5:13 PM EDT 10/27/2024 5:23 PM EDT Kemar Sahni MD LAB BLOOD ORDERABLES Final Result LAB [address] [facility]. [address] * Magnesium (10/27/2024 5:13 PM EDT) [facility] Magnesium 2.4 1.5 - 2.5 mg/dL 10/27/2024 5:53 PM EDT LAB Plasma 10/27/2024 5:13 PM EDT 10/27/2024 5:23 PM EDT Kemar Sahni MD LAB BLOOD ORDERABLES Final Result LAB [address] [facility]. [address] * (ABNORMAL) Hepatic Function Panel (10/27/2024 5:13 PM EDT) Pathologist [facility] Total Bilirubin 1.7(H) 0.0 - 1.5 mg/dL 10/27/2024 5:53 PM EDT LAB Bilirubin, Direct 1.10(H) 0.00 - 0.40 mg/dL 10/27/2024 5:53 PM EDT LAB AST 62(H) 13 - 39 U/L 10/27/2024 5:53 PM EDT LAB ALT 134(H) 7 - 52 U/L 10/27/2024 5:53 PM EDT LAB Alkaline Phosphatase 27(L) 36 - 125 U/L 10/27/2024 5:53 PM EDT LAB Total Protein 4.1(L) 6.4 - 8.9 g/dL 10/27/2024 5:53 PM EDT LAB Albumin 2.9(L) 3.5 - 5.7 g/dL 10/27/2024 5:53 PM EDT LAB Bilirubin, Indirect 0.60 0.00 - 1.10 mg/dL 10/27/2024 5:53 PM EDT LAB Plasma 10/27/2024 5:13 PM EDT 10/27/2024 5:23 PM EDT Kemar Sahni MD LAB BLOOD ORDERABLES Final Result LAB [address] * (ABNORMAL) Renal Function Panel w/EGFR (10/27/2024 5:13 PM EDT) Sodium 142 133 - 146 mmol/L 10/27/2024 5:53 PM EDT LAB Potassium 3.4(L) 3.5 - 5.3 mmol/L 10/27/2024 5:53 PM EDT LAB Chloride 109 98 - 110 mmol/L 10/27/2024 5:53 PM EDT LAB CO2 22 21 - 33 mmol/L 10/27/2024 5:53 PM EDT LAB Anion Gap 11 3 - 16 mmol/L 10/27/2024 5:53 PM EDT LAB BUN 61(H) 7 - 25 mg/dL 10/27/2024 5:53 PM EDT LAB Creatinine 2.42(H) 0.60 - 1.30 mg/dL 10/27/2024 5:53 PM EDT LAB Glucose 125(H) 70 - 100 mg/dL 10/27/2024 5:53 PM EDT LAB Calcium 8.8 8.6 - 10.3 mg/dL 10/27/2024 5:53 PM EDT LAB Phosphorus 5.7(H) 2.1 - 4.7 mg/dL 10/27/2024 5:53 PM EDT LAB Albumin 2.9(L) 3.5 - 5.7 g/dL 10/27/2024 5:53 PM EDT LAB Osmolality, Calculated 313(H) 278 - 305 mOsm/kg 10/27/2024 5:53 PM EDT LAB EGFR 34 10/27/2024 5:53 PM EDT LAB Comment:As of 2021, the estimated GFR [...] Sahni MD LAB BLOOD ORDERABLES Final Result LAB [address] [place] [address], [facility] * (ABNORMAL) CBC (10/27/2024 5:13 PM EDT) WBC 4.9 3.8 - 10.8 10E3/uL 10/27/2024 6:14 PM EDT LAB RBC 2.44(L) 4.20 - 5.80 10E6/uL 10/27/2024 6:14 PM EDT LAB Hemoglobin 7.4(L) 13.2 - 17.1 g/dL 10/27/2024 6:14 PM EDT LAB Hematocrit 21.4(L) 38.5 - 50.0 % 10/27/2024 6:14 PM EDT LAB MCV 87.6 80.0 - 100.0 fL 10/27/2024 6:14 PM EDT LAB MCH 30.3 27.0 - 33.0 pg 10/27/2024 6:14 PM EDT LAB MCHC 34.6 32.0 - 36.0 g/dL 10/27/2024 6:14 PM EDT LAB RDW 19.6(H) 11.0 - 15.0 % 10/27/2024 6:14 PM EDT LAB Platelets 47(L) 140 - 400 10E3/uL 10/27/2024 6:14 PM EDT LAB Comment: CNV Specimen checked for clots. None detected. MPV 8.1 7.5 - 11.5 fL 10/27/2024 6:14 PM EDT LAB Whole Blood 10/27/2024 5:13 PM EDT 10/27/2024 5:23 PM EDT us Kemar Sahni MD LAB BLOOD ORDERABLES Final Result Performing Organization Address City/State/[facility] Co de Phone Number LAB [address] * (ABNORMAL) POC Glucose Monitoring Device (10/27/2024 3:57 PM EDT) POC Glucose Monitoring Device 131(H) 70 - 100 mg/dL 10/27/2024 3:58 PM EDT LAB Blood 10/27/2024 3:57 PM EDT 10/27/2024 3:58 PM EDT us Semaj Mcnair III, MD POINT OF CARE TEST ORDERABLES Final Result LAB [address] * (ABNORMAL) CBC, STAT (10/27/2024 2:40 PM EDT) [facility] WBC 5.8 3.8 - 10.8 10E3/uL 10/27/2024 2:54 PM EDT LAB RBC 2.43(L) 4.20 - 5.80 10E6/uL 10/27/2024 2:54 PM EDT LAB Hemoglobin 7.5(L) 13.2 - 17.1 g/dL 10/27/2024 2:54 PM EDT LAB Hematocrit 21.5(L) 38.5 - 50.0 % 10/27/2024 2:54 PM EDT LAB MCV 88.2 80.0 - 100.0 fL 10/27/2024 2:54 PM EDT LAB MCH 30.7 27.0 - 33.0 pg 10/27/2024 2:54 PM EDT LAB MCHC 34.8 32.0 - 36.0 g/dL 10/27/2024 2:54 PM EDT LAB RDW 19.1(H) 11.0 - 15.0 % 10/27/2024 2:54 PM EDT LAB Platelets 50(L) 140 - 400 10E3/uL 10/27/2024 2:54 PM EDT LAB MPV 7.5 7.5 - 11.5 fL 10/27/2024 2:54 PM EDT LAB Whole Blood 10/27/2024 2:40 PM EDT 10/27/2024 2:44 PM EDT us John Moreno MD LAB BLOOD ORDERABLES Final R esult LAB [address] * (ABNORMAL) Blood Gas, Arterial, STAT (10/27/2024 2:40 PM EDT) O2 Sat, Arterial 98 10/27/2024 2:46 PM EDT LAB FIO2 RA 10/27/2024 2:46 PM EDT LAB pH, Arterial 7.37 7.35 - 7.45 10/27/2024 2:46 PM EDT LAB pCO2, Arterial 35 35 - 45 mm Hg 10/27/2024 2:46 PM EDT LAB pO2, Arterial 92 80 - 100 mm Hg 10/27/2024 2:46 PM EDT LAB HCO3, Arterial 21(L) 22 - 26 mmol/L 10/27/2024 2:46 PM EDT LAB CO2 Content,Arteri al 21(L) 23 - 27 mmol/L 10/27/2024 2:46 PM EDT LAB Base Excess, Arterial -4.6(L) -2.0 - 3.0 mmol/L 10/27/2024 2:46 PM EDT LAB %HBO2, Arterial 95.4 95.0 - 98.0 % 10/27/2024 2:46 PM EDT LAB Carboxyhemoglo bin, Arterial 1.6 % 10/27/2024 2:46 PM EDT LAB Comment: CARBOXYHEMOGLOBIN (CO) REFERENCE RANGES: Non-Smokers: <2 % Smokers: <8 % TOXIC: >20 % Methemoglobin, Arterial 1.0 0.0 - 1.5 % 10/27/2024 2:46 PM EDT LAB Reduced hemoglobin, Arterial 2.1 0.0 - 5.0 % 10/27/2024 2:46 PM EDT LAB Blood, Arterial 10/27/2024 2 :40 PM EDT 10/27/2024 2:44 PM EDT Narrative LAB - 10/27/2024 2:46 PM EDT Post extubation us John Moreno MD LAB BLOOD ORDERABLES Final R esult LAB [address] [facility] [place] [address], [facility] * (ABNORMAL) POC Glucose Monitoring Device (10/27/2024 2:06 PM EDT) [facility] POC Glucose Monitoring Device 134(H) 70 - 100 mg/dL 10/27/2024 2:06 PM EDT LAB Blood 10/27/2024 2:06 PM EDT 10/27/2024 2:06 PM EDT Semaj Mcnair III, MD POINT OF CARE TEST ORDERABLES Final Result Performing Organization Address City/State/[facility] Co de Phone Number LAB [address] [place] [address], [facility] * (ABNORMAL) Blood gas, arterial (10/27/2024 12:35 PM EDT) [facility] O2 Sat, Arterial 99 10/27/2024 12:46 PM EDT LAB FIO2 SBT 30% 10/27/2024 12:46 PM EDT LAB pH, Arterial 7.35 7.35 - 7.45 10/27/2024 12:46 PM EDT LAB pCO2, Arterial 37 35 - 45 mm Hg 10/27/2024 12:46 PM EDT LAB pO2, Arterial 182(H) 80 - 100 mm Hg 10/27/2024 12:46 PM EDT LAB HCO3, Arterial 21(L) 22 - 26 mmol/L 10/27/2024 12:46 PM EDT LAB CO2 Content,Arteri al 22(L) 23 - 27 mmol/L 10/27/2024 12:46 PM EDT LAB Base Excess, Arterial -4.8(L) -2.0 - 3.0 mmol/L 10/27/2024 12:46 PM EDT LAB %HBO2, Arterial 96.3 95.0 - 98.0 % 10/27/2024 12:46 PM EDT LAB Carboxyhemoglo bin, Arterial 1.7 % 10/27/2024 12:46 PM EDT LAB Comment: CARBOXYHEMOGLOBIN (CO) REFERENCE RANGES: Non-Smokers: <2 % Smokers: <8 % TOXIC: >20 % Methemoglobin, Arterial 1.4 0.0 - 1.5 % 10/27/2024 12:46 PM EDT LAB Reduced hemoglobin, Arterial 0.6 0.0 - 5.0 % 10/27/2024 12:46 PM EDT LAB Blood, Arterial 10/27/2024 1 2:35 PM EDT 10/27/2024 12:42 PM EDT Narrative LAB - 10/27/2024 12:46 PM EDT Please obtain post SBT us Shay Sifuetnes MD LAB BLOOD ORDERABLES Final Resu lt LAB [address] [place] [address], [facility] * (ABNORMAL) TEG-Bypass/ECMO/Liver HN (Factor function, Platelet/Fibrin Clot Strength w/Clot Breakdown, Heparinase In All Channels) (10/27/2024 12:07 PM EDT) [facility] Citrated Kaolin Reaction Time (TEGECMOLIVER) 7.9 4.6 - 9.1 minutes 10/27/2024 1:24 PM EDT LAB Citrated Kaolin W/Heparinase Reaction Time (TEGECMOLIVER) 8.3 4.3 - 8.3 minutes 10/27/2024 1:24 PM EDT LAB Citrated Kaolin Maximum Amplitude (TEGECMOLIVER) 52.0 52.0 - 69.0 mm 10/27/2024 1:24 PM EDT LAB Citrated Functional Fibrinogen W/Heparinase Maximum Amplitude(TEGEC MOLIVER) 20.1 15.0 - 34.0 mm 10/27/2024 1:24 PM EDT LAB Citrated Rapid Teg W/Heparinase Maximum Amplitude (TEGECMOLIVER) 49.4(L) 53.0 - 69.0 mm 10/27/2024 1:24 PM EDT LAB Citrated Kaolin w/Heparinase Percent Lysis (TEGECMOLIVER) 0.0 0.0 - 3.2 % 10/27/2024 1:24 PM EDT LAB Whole Blood (Citrate) 10/27/2024 12:07 PM EDT 10/27/2024 12:09 PM EDT Kemar Sahni MD LAB BLOOD ORDERABLES Final Result Performing Organization Address [facility] Co de Phone Number [facility] [address] [facility]. [address] * (ABNORMAL) POC Glucose Monitoring Device (10/27/2024 12:01 PM EDT) POC Glucose Monitoring Device 121(H) 70 - 100 mg/dL 10/27/2024 12:02 PM EDT LAB Blood 10/27/2024 12:0 1 PM EDT 10/27/2024 12:01 PM EDT Semaj Mcnair III, MD POINT OF CARE TEST ORDERABLES Final Result Performing Organization Address [facility] de Phone Number LAB [address] [facility]. [address] * (ABNORMAL) POC Glucose Monitoring Device (10/27/2024 10:59 AM EDT) POC Glucose Monitoring Device 126(H) 70 - 100 mg/dL 10/27/2024 11:10 AM EDT LAB Blood 10/27/2024 10:5 9 AM EDT 10/27/2024 11:10 AM EDT Semaj Mcnair III, MD POINT OF CARE TEST ORDERABLES Final Result Performing Organization Address [facility] Co de Phone Number LAB [address] [facility]. [address] * ECG 12 lead (MUSE) (10/27/2024 10:17 AM EDT) 10/27/2024 10:1 7 AM EDT Narrative MUSE - 10/27/2024 2:51 PM EDT Ventricular Rate: 91 BPM Atrial Rate: 91 BPM P-R Interval: 168 ms QRS Duration: 90 ms QT: 274 ms QTc: 337 ms P Banks: 60 degrees R Banks: -30 degrees T Banks: -15 degrees Diagnosis Line: NORMAL SINUS RHYTHM ^ LEFT AXIS DEVIATION, LEFT ANTERIOR HEMIBLOCK ^ NONSPECIFIC T WAVE CHANGE ^ ABNORMAL ECG ^ ^ Confirmed by MD ROLLY, [facility] ([id number]) on 10/27/2024 2:51:52 PM Shay Sifuentes MD ECG ORDERABLES Final Result MUSE * (ABNORMAL) POC Glucose Monitoring Device (10/27/2024 10:00 AM EDT) [facility] POC Glucose Monitoring Device 121(H) 70 - 100 mg/dL 10/27/2024 10:01 AM EDT [facility] LAB Blood 10/27/2024 10:0 0 AM EDT 10/27/2024 10:01 AM EDT Semaj Mcnair III, MD POINT OF CARE TEST ORDERABLES Final Result Performing Organization Address City/[facility] Co de Phone Number LAB [address] * US Renal Transplant (10/27/2024 9:51 [...] US ORDERABLES Final Result * US Duplex Pot-Sda-Waujspf Comp (10/27/2024 9:51 AM EDT) Anatomical Region [...] EXAM: US ABDOMEN LIMITED EXAM: US DUPLEX [id number] COMPLETE INDICATION: Post-op liver transplant COMPARISON: None [...] absent.. Pancreas: Obscured by overlying bowel gas. [place] right kidney: 12.5 cm in length. Normal [...] EXAM: US ABDOMEN LIMITED EXAM: US DUPLEX [id number] COMPLETE INDICATION: Post-op liver transplant COMPARISON: None [...] absent.. Pancreas: Obscured by overlying bowel gas. [place] right kidney: 12.5 cm in length. Normal [...] EXAM: US ABDOMEN LIMITED EXAM: US DUPLEX [id number] COMPLETE INDICATION: Post-op liver transplant COMPARISON: None [...] absent.. Pancreas: Obscured by overlying bowel gas. [place] right kidney: 12.5 cm in length. Normal [...] EXAM: US ABDOMEN LIMITED EXAM: US DUPLEX [id number] COMPLETE INDICATION: Post-op liver transplant COMPARISON: None [...] absent.. Pancreas: Obscured by overlying bowel gas. [place] right kidney: 12.5 cm in length. Normal [...] - 100 mg/dL 10/27/2024 9:06 AM EDT [facility] LAB Blood 10/27/2024 9:05 AM EDT 10/27/2024 9:06 AM EDT us Semaj Mcnair III, MD POINT OF CARE TEST ORDERABLES Final Result LAB [address] [place] [address], [facility] * X-ray Portable Chest (10/27/2024 8:58 [...] 10/27/2024 9:22 AM EDT John Moreno MD IM DIAGNOSTIC IMAGING ORDER PAL Final Result * (ABNORMAL) Protime-INR, STAT (10/27/2024 8:16 AM EDT) Protime 16.2(H) 12.1 - 15.1 seconds 10/27/2024 8:35 AM EDT [facility]ALTH LAB INR 1.2(H) 0.9 - 1.1 10/27/2024 8:35 AM EDT LAB Comment: RECOMMENDED THERAPEUTIC RANGES USING INR : Stable oral anticoagulant therapy: 2.0 - 3.0 Mechanical prosthetic heart valve: 2.5 - 3.5 Recurrent acute myocardial infarction: 2.5 - 3.5 Plasma 10/27/2024 8:16 AM EDT 10/27/2024 8:20 AM EDT John Moreno MD LAB BLOOD ORDERABLES Final R esult LAB [address] * Magnesium (10/27/2024 8:00 AM EDT) Magnesium 1.8 1.5 - 2.5 mg/dL 10/27/2024 10:50 AM EDT LAB Plasma 10/27/2024 8:00 AM EDT 10/27/2024 10:31 AM EDT Kemar Sahni MD LAB BLOOD ORDERABLES Final Result Performing Organization Address [facility]/ZIP Co de Phone Number LAB [address] * (ABNORMAL) Renal Function Panel w/EGFR (10/27/2024 8:00 AM EDT) Sodium 142 133 - 146 mmol/L 10/27/2024 10:18 AM EDT LAB Potassium 3.0(L) 3.5 - 5.3 mmol/L 10/27/2024 10:18 AM EDT LAB Chloride 109 98 - 110 mmol/L 10/27/2024 10:18 AM EDT LAB CO2 21 21 - 33 mmol/L 10/27/2024 10:18 AM EDT LAB Anion Gap 12 3 - 16 mmol/L 10/27/2024 10:18 AM EDT LAB BUN 59(H) 7 - 25 mg/dL 10/27/2024 10:18 AM EDT LAB Creatinine 2.54(H) 0.60 - 1.30 mg/dL 10/27/2024 10:18 AM EDT LAB Glucose 111(H) 70 - 100 mg/dL 10/27/2024 10:18 AM EDT LAB Calcium 9.1 8.6 - 10.3 mg/dL 10/27/2024 10:18 AM EDT LAB Phosphorus 5.5(H) 2.1 - 4.7 mg/dL 10/27/2024 10:18 AM EDT LAB Albumin 3.0(L) 3.5 - 5.7 g/dL 10/27/2024 10:18 AM EDT LAB Osmolality, Calculated 311(H) 278 - 305 mOsm/kg 10/27/2024 10:18 AM EDT LAB EGFR 32 10/27/2024 10:18 AM EDT LAB Comment:As of 2021, the estimated GFR [...] [facility] Co de Phone Number LAB [address] [place], [place] [address] * (ABNORMAL) Hepatic Function Panel, STAT (10/27/2024 8:00 AM EDT) Total Bilirubin 1.3 0.0 - 1.5 mg/dL 10/27/2024 8:51 AM EDT LAB Bilirubin, Direct 0.93(H) 0.00 - 0.40 mg/dL 10/27/2024 8:51 AM EDT LAB AST 88(H) 13 - 39 U/L 10/27/2024 8:51 AM EDT LAB ALT 149(H) 7 - 52 U/L 10/27/2024 8:51 AM EDT LAB Alkaline Phosphatase 26(L) 36 - 125 U/L 10/27/2024 8:51 AM EDT LAB Total Protein 4.0(L) 6.4 - 8.9 g/dL 10/27/2024 8:51 AM EDT LAB Albumin 3.0(L) 3.5 - 5.7 g/dL 10/27/2024 8:51 AM EDT LAB Bilirubin, Indirect 0.37 0.00 - 1.10 mg/dL 10/27/2024 8:51 AM EDT LAB Plasma 10/27/2024 8:00 AM EDT 10/27/2024 8:20 AM EDT Semaj Mcnair III, MD LAB BLOOD ORDERABLE S Final Result Performing Organization Address [facility]/ZIP Co de Phone Number LAB [address] [place] [address] * (ABNORMAL) Lactic Acid, STAT (10/27/2024 8:00 AM EDT) Lactate 0.4(L) 0.5 - 2.2 mmol/L 10/27/2024 8:43 AM EDT LAB Plasma 10/27/2024 8:00 AM EDT 10/27/2024 8:20 AM EDT Semaj Mcnair III, MD LAB BLOOD ORDERABLE S Final Result LAB [address] * (ABNORMAL) Blood Gas, Arterial, STAT (10/27/2024 8:00 AM EDT) O2 Sat, Arterial 100 10/27/2024 8:23 AM EDT LAB pH, Arterial 7.36 7.35 - 7.45 10/27/2024 8:23 AM EDT LAB pCO2, Arterial 37 35 - 45 mm Hg 10/27/2024 8:23 AM EDT LAB pO2, Arterial 245(H) 80 - 100 mm Hg 10/27/2024 8:23 AM EDT LAB HCO3, Arterial 22 22 - 26 mmol/L 10/27/2024 8:23 AM EDT LAB CO2 Content,Arteri al 22(L) 23 - 27 mmol/L 10/27/2024 8:23 AM EDT LAB Base Excess, Arterial -4.2(L) -2.0 - 3.0 mmol/L 10/27/2024 8:23 AM EDT LAB %HBO2, Arterial 96.5 95.0 - 98.0 % 10/27/2024 8:23 AM EDT LAB Carboxyhemoglo bin, Arterial 2.2 % 10/27/2024 8:23 AM EDT LAB Comment: CARBOXYHEMOGLOBIN (CO) REFERENCE RANGES: Non-Smokers: <2 % Smokers: <8 % TOXIC: >20 % Methemoglobin, Arterial 1.2 0.0 - 1.5 % 10/27/2024 8:23 AM EDT LAB Reduced hemoglobin, Arterial 0.0 0.0 - 5.0 % 10/27/2024 8:23 AM EDT LAB Blood, Arterial 10/27/2024 8 :00 AM EDT 10/27/2024 8:19 AM EDT Narrative LAB - 10/27/2024 8:23 AM EDT Specimen is beyond 15 minutes from time of collection. Results may be compromised. Review results critically. us Kemar Sahni MD LAB BLOOD ORDERABLES Final Result LAB [address] [place] [address], [facility] * (ABNORMAL) TEG-Bypass/ECMO/Liver HN (Factor function, Platelet/Fibrin Clot Strength w/Clot Breakdown, Heparinase In All Channels) (10/27/2024 8:00 AM EDT) [facility] Citrated Kaolin Reaction Time (TEGECMOLIVER) 7.8 4.6 - 9.1 minutes 10/27/2024 9:39 AM EDT LAB Citrated Kaolin W/Heparinase Reaction Time (TEGECMOLIVER) 8.0 4.3 - 8.3 minutes 10/27/2024 9:39 AM EDT LAB Citrated Kaolin Maximum Amplitude (TEGECMOLIVER) 52.7 52.0 - 69.0 mm 10/27/2024 9:39 AM EDT LAB Citrated Functional Fibrinogen W/Heparinase Maximum Amplitude(TEGEC MOLIVER) 19.0 15.0 - 34.0 mm 10/27/2024 9:39 AM EDT LAB Citrated Rapid Teg W/Heparinase Maximum Amplitude (TEGECMOLIVER) 49.5(L) 53.0 - 69.0 mm 10/27/2024 9:39 AM EDT LAB Citrated Kaolin w/Heparinase Percent Lysis (TEGECMOLIVER) 0.0 0.0 - 3.2 % 10/27/2024 9:39 AM EDT LAB Whole Blood (Citrate) 10/27/2024 8:00 AM EDT 10/27/2024 8:19 AM EDT Kemar Sahni MD LAB BLOOD ORDERABLES Final Result LAB [address] * (ABNORMAL) Katie-Watkins virus VCA IgG Antibody (10/27/2024 8:00 AM EDT) EBV VCA IgG Positive( A) Negative 10/27/2024 11:30 AM EDT LAB Comment:Presence of detectab le VCA IgG antibodies. 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 EBV IGG NUM 314.00(H) 0.00 - 17.99 U/mL 10/27/2024 11:30 AM EDT LAB Serum 10/27/2024 8:00 AM EDT 10/27/2024 8:20 AM EDT Kemar Sahni MD LAB BLOOD ORDERABLES Final Result Performing Organization Address City/[facility]/ZIP Co de Phone Number LAB [address] * Hemoglobin A1c (10/27/2024 8:00 AM EDT) Hemoglobin A1C 5.0 4.0 - 5.6 % 10/27/2024 11:12 AM EDT LAB Comment: Hemoglobin A1c Interpretation Guidelines: Normal: [...] ORDERABLES Final Result Performing Organization Address [facility] Co de Phone Number LAB [address] [facility]. [address] * (ABNORMAL) POC Glucose Monitoring Device (10/27/2024 7:59 AM EDT) POC Glucose Monitoring Device 113(H) 70 - 100 mg/dL 10/27/2024 7:59 AM EDT LAB Blood 10/27/2024 7:59 AM EDT 10/27/2024 7:59 AM EDT Semaj Mcnair III, MD POINT OF CARE TEST ORDERABLES Final Result Performing Organization Address City/[facility]/ZIP Co de Phone Number LAB [address] [facility]. [address] * X-ray Abdomen AP view (10/27/2024 [...] Units (10/27/2024 6:16 AM EDT) Product Code D5662I30 HCLL Unit Number [id number] HCLL Dispense Status Presumed Transfused_PT HCLL Blood Expiration Date [id number] HCLL Coding System OBZM051 HCLL Product Code I0387B69 HCLL Unit Number [id number] HCLL Dispense Status Presumed Transfused_PT HCLL Blood Expiration Date [id number] HCLL Coding System JFIS555 HCLL Blood Bank Product John Pina MD BLOOD BANK PRODUCT ORDERABLES F inal Result Performing Organization Address City/[facility]/ZIP Co de Phone Number HCLL * Prepare Platelets, leukoreduced, 1 Units (10/27/2024 6:16 AM EDT) Product Code I3435M23 HCLL Unit Number [id number] HCLL Dispense Status Presumed Transfused_PT HCLL Blood Expiration Date 529715931933 HCLL Coding System FGLU294 HCLL Blood Bank Product Eber Quinones MD BLOOD BANK PRODUCT ORDER APL Final Result Performing Organization Address City/[facility]/ZIP Co de Phone Number HCLL * Prepare Cryoprecipitate, 1 Units (10/27/2024 6:16 AM EDT) Product Code W6885H78 HCLL Unit Number [id number] HCLL Dispense Status Presumed Transfused_PT HCLL Blood Expiration Date HCLL Coding System VEUY516 HCLL Product Code C9661Q44 HCLL Unit Number [id number] HCLL Dispense Status Presumed Transfused_PT HCLL Blood Expiration Date HCLL Coding System SCQH460 HCLL Blood Bank Product Eber Quinones MD BLOOD BANK PRODUCT ORDER PAL Final Result HCLL * Prepare Fresh Frozen Plasma, 10 Units (10/27/2024 6:16 AM EDT) Product Code M5873Y15 HCLL Unit Number [id number] HCLL Dispense Status Presumed Transfused_PT HCLL Blood Expiration Date HCLL Coding System BQRN328 HCLL Product Code K9333Q51 HCLL Unit Number [id number] HCLL Dispense Status Presumed Transfused_PT HCLL Blood Expiration Date HCLL Coding System BJEE533 HCLL Product Code B0208Y10 HCLL Unit Number [id number] HCLL Dispense Status Presumed Transfused_PT HCLL Blood Expiration Date HCLL Coding System VLSR456 HCLL Product Code E1232X44 HCLL Unit Number [id number] HCLL Dispense Status Presumed Transfused_PT HCLL Blood Expiration Date 858368495686 HCLL Coding System MPHI359 HCLL Product Code X3391V37 HCLL Unit Number [id number] HCLL Dispense Status Released from Crossmatch_RE HCLL Blood Expiration Date 480491114325 HCLL Coding System GLNF019 HCLL Product Code W9898N94 HCLL Unit Number [id number] HCLL Dispense Status Released from Crossmatch_RE HCLL Blood Expiration Date HCLL Coding System RAFL167 HCLL Product Code F6180F21 HCLL Unit Number [id number] HCLL Dispense Status Presumed Transfused_PT HCLL Blood Expiration Date HCLL Coding System RMEO770 HCLL Product Code B6664N42 HCLL Unit Number [id number] HCLL Dispense Status Presumed Transfused_PT HCLL Blood Expiration Date HCLL Coding System RSMU435 HCLL Product Code M5685U07 HCLL Unit Number [id number] HCLL Dispense Status Presumed Transfused_PT HCLL Blood Expiration Date 963864468980 HCLL Coding System BLCT181 HCLL Product Code D2851C75 HCLL Unit Number [id number] HCLL Dispense Status Presumed Transfused_PT HCLL Blood Expiration Date HCLL Coding System LXWN207 HCLL Blood Bank Product us Leandra Og MD BLOOD BANK PRODUCT ORD ERABLES Final Result HCLL * Prepare Platelets, leukoreduced, 1 Units (10/27/2024 6:16 AM EDT) Product Code A9007M61 HCLL Unit Number [id number] HCLL Dispense Status Presumed Transfused_PT HCLL Blood Expiration Date 512005342084 HCLL Coding System VQGU286 HCLL Blood Bank Product us Ben Blake MD BLOOD BANK PRODUCT ORDERABLES Final Result HCLL * Prepare Fresh Frozen Plasma (10/27/2024 6:15 AM EDT) Product Code X5323J03 HCLL Unit Number [id number] HCLL Dispense Status Presumed Transfused_PT HCLL Blood Expiration Date HCLL Coding System ZDOH887 HCLL Product Code N8589I34 HCLL Unit Number [id number] HCLL Dispense Status Released from Crossmatch_RE HCLL Blood Expiration Date HCLL Coding System UDVX542 HCLL Product Code Q6798V32 HCLL Unit Number [id number] HCLL Dispense Status Presumed Transfused_PT HCLL Blood Expiration Date HCLL Coding System PPQZ083 HCLL Product Code J7753H17 HCLL Unit Number [id number] HCLL Dispense Status Presumed Transfused_PT HCLL Blood Expiration Date HCLL Coding System HFCF119 HCLL Product Code L7585S84 HCLL Unit Number [id number] HCLL Dispense Status Released from Crossmatch_RE HCLL Blood Expiration Date HCLL Coding System HZGI841 HCLL us Attending Provider Unknown BLOOD BANK PRODUCT OR DERABLES Final Result Performing Organization Address City/[facility] Co de Phone Number HCLL * Prepare RBC, leukoreduced (10/27/2024 6:15 AM EDT) Product Code L2502G87 HCLL Unit Number [id number] HCLL Dispense Status Presumed Transfused_PT HCLL Blood Expiration Date HCLL Coding System XJPZ877 HCLL Product Code R0464X70 HCLL Unit Number [id number] HCLL Dispense Status Released from Crossmatch_RE HCLL Blood Expiration Date HCLL Coding System OJBB890 HCLL Product Code G1898E48 HCLL Unit Number [id number] HCLL Dispense Status Released from Crossmatch_RE HCLL Blood Expiration Date 694066806017 HCLL Coding System XHHS841 HCLL Product Code X8691S63 HCLL Unit Number [id number] HCLL Dispense Status Released from Crossmatch_RE HCLL Blood Expiration Date 427059561795 HCLL Coding System NHGP954 HCLL Product Code U1100V55 HCLL Unit Number [id number] HCLL Dispense Status Released from Crossmatch_RE HCLL Blood Expiration Date 230063993623 HCLL Coding System VKND104 HCLL us Attending Provider Unknown BLOOD BANK PRODUCT OR DERABLES Final Result HCLL * Prepare RBC, leukoreduced, 10 Units (10/27/2024 6:15 AM EDT) Product Code M2865V36 HCLL Unit Number [id number] HCLL Dispense Status Presumed Transfused_PT HCLL Blood Expiration Date HCLL Coding System CBZN372 HCLL Product Code U1182L75 HCLL Unit Number [id number] HCLL Dispense Status Presumed Transfused_PT HCLL Blood Expiration Date HCLL Coding System BQJA439 HCLL Product Code B4079P69 HCLL Unit Number [id number] HCLL Dispense Status Presumed Transfused_PT HCLL Blood Expiration Date HCLL Coding System SVPW538 HCLL Product Code L0939R38 HCLL Unit Number [id number] HCLL Dispense Status Presumed Transfused_PT HCLL Blood Expiration Date HCLL Coding System MYXD795 HCLL Product Code O4435H46 HCLL Unit Number [id number] HCLL Dispense Status Presumed Transfused_PT HCLL Blood Expiration Date HCLL Coding System XNAN746 HCLL Product Code Q1752W59 HCLL Unit Number [id number] HCLL Dispense Status Presumed Transfused_PT HCLL Blood Expiration Date 520138866966 HCLL Coding System HFOW280 HCLL Product Code F2218V28 HCLL Unit Number [id number] HCLL Dispense Status Presumed Transfused_PT HCLL Blood Expiration Date HCLL Coding System LLOH630 HCLL Product Code H1964J88 HCLL Unit Number [id number] HCLL Dispense Status Presumed Transfused_PT HCLL Blood Expiration Date HCLL Coding System TPEN179 HCLL Product Code W8096S88 HCLL Unit Number [id number] HCLL Dispense Status Presumed Transfused_PT HCLL Blood Expiration Date HCLL Coding System OMJA022 HCLL Product Code K3461A30 HCLL Unit Number [id number] HCLL Dispense Status Presumed Transfused_PT HCLL Blood Expiration Date 886819355551 HCLL Coding System EISV233 HCLL Blood Bank Product Leandra Og MD BLOOD BANK PRODUCT ORD ERABLES Final Result HCLL * Transfuse Platelets (10/27/2024 6:09 AM EDT) us Ben Blake MD NURSING TREATMENT ORDERABLES - BLOOD ADMIN Final Result * (ABNORMAL) Arterial Blood Gas Panel (10/27/2024 6:09 AM EDT) O2Sat (ABGP) 100 10/27/2024 6:17 AM EDT LAB pH (ABGP) 7.30(L) 7.35 - 7.45 10/27/2024 6:17 AM EDT LAB PCO2 (ABGP) 41 35 - 45 mm Hg 10/27/2024 6:17 AM EDT LAB PO2 (ABGP) 192(H) 80 - 100 mm Hg 10/27/2024 6:17 AM EDT LAB HCO3 (ABGP) 21(L) 22 - 26 mmol/L 10/27/2024 6:17 AM EDT LAB CO2 Content (ABGP) 22(L) 23 - 27 mmol/L 10/27/2024 6:17 AM EDT LAB Base Excess (ABGP) -5.7(L) -2.0 - 3.0 mmol/L 10/27/2024 6:17 AM EDT LAB Sodium (ABGP) 138 136 - 146 mEq/L 10/27/2024 6:17 AM EDT LAB Potassium (ABGP) 3.3(L) 3.5 - 5.0 mEq/L 10/27/2024 6:17 AM EDT LAB Comment:In the event of in-v itro hemolysis, potassium results may be falsely elevated. Always interpret lab results in conjunction with clinical findings. If hemolysis is suspected, a serum sample may be collected for repeat assessment of potassium. Calcium, Free (ABGP) 5.28 4.50 - 5.30 mg/dL 10/27/2024 6:17 AM EDT LAB Glucose (ABGP) 112(H) 70 - 100 mg/dL 10/27/2024 6:17 AM EDT LAB Comment:There is interferenc e with whole blood glucose results on this method when Hematocrit is <25% or >60%. HCT (ABGP) 20.0(L) 40.0 - 52.0 % 10/27/2024 6:17 AM EDT LAB HGB (ABGP) 6.5(L) 14.0 - 18.0 g/dL 10/27/2024 6:17 AM EDT LAB %HBO2 (ABGP) 96.8 95.0 - 98.0 % 10/27/2024 6:17 AM EDT LAB Carboxyhgb (ABGP) 2.1 % 025 6:17 AM EDT LAB Comment: CARBOXYHEMOGLOBIN (CO) REFERENCE RANGES: Non-Smokers: <2 % Smokers: <8 % TOXIC: >20 % Methemoglobin (ABGP) 1.0 0.0 - 1.5 % 10/27/2024 6:17 AM EDT LAB Reduced Hemoglobin (ABGP) 0.2 0.0 - 5.0 % 10/27/2024 6:17 AM EDT LAB Lactic Acid (ABGP) 0.4(L) 0.5 - 1.6 mmol/L 10/27/2024 6:17 AM EDT LAB Blood, Arterial 10/27/2024 6 :09 AM EDT 10/27/2024 6:14 AM EDT Ben Blake MD LAB BLOOD ORDERABLES Final Re sult LAB [address] [place], [place] [id number] * Transfuse Fresh Frozen Plasma (10/27/2024 [...] - 100 mg/dL 10/27/2024 4:47 AM EDT LAB Blood 10/27/2024 4:46 AM EDT 10/27/2024 4:[address] [facility] Semaj Mcnair III, MD POINT OF CARE TEST ORDERABLES Final Result Performing Organization Address City/State/[facility] Co de Phone Number LAB [address] * Transfuse Platelets (10/27/2024 4:24 AM EDT) Result [facility] Ben Blake MD NURSING TREATMENT ORDERABLES - BLOOD ADMIN Final Result * Transfuse Fresh Frozen Plasma (10/27/2024 4:07 AM EDT) [facility] [facility] MD NURSING TREATMENT ORDERABLES - BLOOD ADMIN Final Result * Transfuse RBC (10/27/2024 3:52 AM EDT) Result [facility] Ben Blake MD NURSING TREATMENT ORDERABLES - BLOOD ADMIN Final Result * (ABNORMAL) Arterial Blood Gas Panel (10/27/2024 3:07 AM EDT) O2Sat (ABGP) 100 10/27/2024 3:21 AM EDT LAB pH (ABGP) 7.32(L) 7.35 - 7.45 10/27/2024 3:21 AM EDT LAB PCO2 (ABGP) 38 35 - 45 mm Hg 10/27/2024 3:21 AM EDT LAB PO2 (ABGP) 176(H) 80 - 100 mm Hg 10/27/2024 3:21 AM T LAB HCO3 (ABGP) 20(L) 22 - 26 mmol/L 10/27/2024 3:21 AM [facility] LAB CO2 Content (ABGP) 21(L) 23 - 27 mmol/L 10/27/2024 3:21 AM [facility] LAB Base Excess (ABGP) -6.0(L) -2.0 - 3.0 mmol/L 10/27/2024 3:21 AM [facility] LAB Sodium (ABGP) 138 136 - 146 mEq/L 10/27/2024 3:21 AM [facility] LAB Potassium (ABGP) 3.0(L) 3.5 - 5.0 mEq/L 10/27/2024 3:21 AM [facility] LAB Comment:In the event of in-v itro hemolysis, potassium results may be falsely elevated. Always interpret lab results in conjunction with clinical findings. If hemolysis is suspected, a serum sample may be collected for repeat assessment of potassium. Calcium, Free (ABGP) 5.28 4.50 - 5.30 mg/dL 10/27/2024 3:21 AM [facility] LAB Glucose (ABGP) 108(H) 70 - 100 mg/dL 10/27/2024 3:21 AM [facility] LAB Comment:There is interferenc e with whole blood glucose results on this method when Hematocrit is <25% or >60%. HCT (ABGP) 22.0(L) 40.0 - 52.0 % 10/27/2024 3:21 AM [facility] LAB HGB (ABGP) 7.3(L) 14.0 - 18.0 g/dL 10/27/2024 3:21 AM [facility] LAB %HBO2 (ABGP) 97.3 95.0 - 98.0 % 10/27/2024 3:21 AM [facility] LAB Carboxyhgb (ABGP) 1.9 % 025 3:21 AM [facility] LAB Comment: CARBOXYHEMOGLOBIN (CO) REFERENCE RANGES: Non-Smokers: <2 % Smokers: <8 % TOXIC: >20 % Methemoglobin (ABGP) 0.8 0.0 - 1.5 % 10/27/2024 3:21 AM EDT LAB Reduced Hemoglobin (ABGP) 0.0 0.0 - 5.0 % 10/27/2024 3:21 AM EDT LAB Lactic Acid (ABGP) 0.3(L) 0.5 - 1.6 mmol/L 10/27/2024 3:21 AM EDT LAB Blood, Arterial 10/27/2024 3 :07 AM EDT 10/27/2024 3:14 AM EDT us Ben Blake MD LAB BLOOD ORDERABLES Final Re sult LAB [address] [facility] 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 baseline renal biopsy ; B. right lobe liver biopsy; C. left lobe liver biopsy CPT Code(s): 74399 X 1; 82690 X 2; 37929 X 4 Additional Information: FINAL DIAGNOSIS: A. [...] Pathologist signing this report is located at [facility], [address] [place] [address], [facility], , CLIA ID: [id number] ADDENDUM: A. Kidney, allograft, baseline, wedge biopsy: [...] Pathologist signing this report is located at [facility], [address] [place] [address], [place], [place], [facility], , CLIA ID: [id number] us Kemar Sahni MD PATHOLOGY/CYTOLOGY ORDERABL ES Edited Result - Final [facility] * Anaerobic culture (10/27/2024 2:15 AM EDT) Culture Result No Anaerobes Isolated in 5 Days LAB Fluid SPECIMEN FROM KIDNEY / Unknown 10/27/2024 2:15 AM EDT 10/27/2024 4:24 AM EDT Narrative HEALTH LAB - 10/31/2024 11:43 AM EDT 1) perfusate us Semaj Mcnair III, MD MICROBIOLOGY - GENE RAL ORDERABLES Final Result Performing Organization Address [facility] Co de Phone Number LAB [address] [place] [address] * Routine Culture plus Stain (10/27/2024 2:15 AM EDT) Gram Stain Result No Polymorphonuclear Leukocytes Seen LAB Gram Stain Result No Organisms Seen; LAB Culture Result No Growth After 3 Days LAB Fluid SPECIMEN FROM KIDNEY / Unknown 10/27/2024 2:15 AM EDT 10/27/2024 4:24 AM EDT Narrative HEALTH LAB - 10/30/2024 9:26 AM EDT 1) perfusate us Semaj Mcnair III, MD MICROBIOLOGY - GENE RAL ORDERABLES Final Result Performing Organization Address City/[facility]/ZIP Co de Phone Number LAB [address] [place] [address] * Transfuse Platelets Transfusion Rate: Per dept [...] a Baseline TEG) (10/27/2024 1:51 AM EDT) [facility] Citrated Kaolin Reaction Time (TEGHEPARINASE) 10.6(H) 4.6 - 9.1 minutes 10/27/2024 2:44 AM EDT LAB Citrated Rapid Teg Maximum Amplitude (TEGHEPARINASE) 42.3(L) 52.0 - 70.0 mm 10/27/2024 2:44 AM EDT LAB Citrated Functional Fibrinogen Maximum Amplitude (TEGHEPARINASE) 15.0 15.0 - 32.0 mm 10/27/2024 2:44 AM EDT LAB Citrated Kaolin W/Heparinase Reaction Time (TEGHEPARINASE) 10.5(H) 4.3 - 8.3 minutes 10/27/2024 2:44 AM EDT LAB Citrated Kaolin K-Time (TEGHEPARINASE) 2.9(A) 0.8 - 2.1 minutes 10/27/2024 2:44 AM EDT LAB Citrated Kaolin Angle (TEGHEPARINASE) 60.4(A) 63.0 - 78.0 degrees 10/27/2024 2:44 AM EDT LAB Citrated Kaolin Maximum Amplitude (TEGHEPARINASE) 42.9(L) 52.0 - 69.0 mm 10/27/2024 2:44 AM EDT LAB Citrated Functional Fibrinogen- Fibrinogen Level (TEGHEPARINASE) 273.7(L) 278.0 - 581.0 mg/dL 10/27/2024 2:44 AM EDT LAB Whole Blood (Citrate) 10/27/2024 1:51 AM EDT 10/27/2024 2:03 AM EDT us John Pina MD LAB BLOOD ORDERABLES Final Resu lt Performing Organization Address City/[facility] Co de Phone Number [facility] [address] [facility]. [address] * (ABNORMAL) POC Glucose Monitoring Device (10/27/2024 1:50 AM EDT) POC Glucose Monitoring Device 121(H) 70 - 100 mg/dL 10/27/2024 1:51 AM EDT LAB Blood 10/27/2024 1:5 0 AM EDT 10/27/2024 1:51 AM EDT us Semaj Mcnair III, MD POINT OF CARE TEST ORDERABLES Final Result Performing Organization Address [facility] Co de Phone Number [facility] [address] [facility]. [address] * Transfuse Cryoprecipitate Transfusion Rate: Per dept routine (10/27/2024 1:25 AM EDT) us John Pina MD NURSING TREATMENT ORDERABLES - BLOOD ADMIN Final Result Performing Organization Address [facility] Co de Phone Number EXTERNAL * Transfuse Cryoprecipitate Transfusion Rate: Per dept routine, 1 Units (10/27/2024 1:25 AM EDT) us John Pina MD NURSING TREATMENT ORDERABLES - BLOOD ADMIN Final Result Performing Organization Address City/[facility] Co de Phone Number EXTERNAL * (ABNORMAL) POC Glucose Monitoring Device (10/27/2024 1:21 AM EDT) POC Glucose Monitoring Device 123(H) 70 - 100 mg/dL 10/27/2024 1:22 AM EDT LAB Blood 10/27/2024 1:21 AM EDT 10/27/2024 1:21 AM EDT us Semaj Mcnair III, MD POINT OF CARE TEST ORDERABLES Final Result Performing Organization Address [facility] Co de Phone Number LAB [address] * Transfuse Fresh Frozen Plasma Transfusion Rate: Per dept routine (10/27/2024 1:03 AM EDT) us John Pina MD NURSING TREATMENT ORDERABLES - BLOOD ADMIN Final Result Performing Organization Address [facility] de Phone Number EXTERNAL * Transfuse Fresh Frozen Plasma Transfusion Rate: Per dept routine, 1 Units (10/27/2024 1:03 AM EDT) us John Pina MD NURSING TREATMENT ORDERABLES - BLOOD ADMIN Final Result Performing Organization Address [facility] de Phone Number EXTERNAL * Calcium Free, Serum (10/27/2024 12:13 AM EDT) Free Calcium, Ser 5.20 4.40 - 5.40 mg/dL 10/27/2024 12:37 AM EDT LAB Comment:Free calcium levels vary inversely with pH by approximately 5% for each 0.1 unit of pH change. Assay results have been normalized to pH = 7.40. Serum 10/27/2024 12:1 3 AM EDT 10/27/2024 12:29 AM EDT Narrative LAB - 10/27/2024 12:37 AM EDT This test has been developed and its performance characteristics determined by [facility] which is certified under [...] Final Resu lt Performing Organization Address [facility] Co de Phone Number LAB [address] * (ABNORMAL) Blood Gas, Arterial, STAT (10/27/2024 12:13 AM EDT) O2 Sat, Arterial 100 10/27/2024 12:23 AM EDT LAB FIO2 30 10/27/2024 12:23 AM EDT LAB pH, Arterial 7.32(L) 7.35 - 7.45 10/27/2024 12:23 AM EDT LAB pCO2, Arterial 37 35 - 45 mm Hg 10/27/2024 12:23 AM EDT LAB pO2, Arterial 137(H) 80 - 100 mm Hg 10/27/2024 12:23 AM EDT LAB HCO3, Arterial 20(L) 22 - 26 mmol/L 10/27/2024 12:23 AM EDT LAB CO2 Content,Arteri al 20(L) 23 - 27 mmol/L 10/27/2024 12:23 AM EDT LAB Base Excess, Arterial -6.4(L) -2.0 - 3.0 mmol/L 10/27/2024 12:23 AM EDT LAB %HBO2, Arterial 96.2 95.0 - 98.0 % 10/27/2024 12:23 AM EDT LAB Carboxyhemoglo bin, Arterial 1.9 % 10/27/2024 12:23 AM EDT LAB Comment: CARBOXYHEMOGLOBIN (CO) REFERENCE RANGES: Non-Smokers: <2 % Smokers: <8 % TOXIC: >20 % Methemoglobin, Arterial 1.5 0.0 - 1.5 % 10/27/2024 12:23 AM EDT LAB Reduced hemoglobin, Arterial 0.4 0.0 - 5.0 % 10/27/2024 12:23 AM EDT LAB Blood, Arterial 10/27/2024 1 2:13 AM EDT 10/27/2024 12:18 AM EDT us John Pina MD LAB BLOOD ORDERABLES Final Resu lt LAB [address] [place] [address], [facility] * (ABNORMAL) TEG-Bypass/ECMO/Liver HN (Factor function, Platelet/Fibrin Clot Strength w/Clot Breakdown, Heparinase In All Channels) (10/27/2024 12:13 AM EDT) Citrated Kaolin Reaction Time (TEGECMOLIVER) 9.1 4.6 - 9.1 minutes 10/27/2024 1:43 AM EDT LAB Citrated Kaolin W/Heparinase Reaction Time (TEGECMOLIVER) 9.7(H) 4.3 - 8.3 minutes 10/27/2024 1:43 AM EDT [facility] Citrated Kaolin Maximum Amplitude (TEGECMOLIVER) <40.0(L) 52.0 - 69.0 mm 10/27/2024 1:43 AM EDT LAB Citrated Functional Fibrinogen W/Heparinase Maximum Amplitude(TEGEC MOLIVER) 11.9(L) 15.0 - 34.0 mm 10/27/2024 1:43 AM EDT LAB Citrated Rapid Teg W/Heparinase Maximum Amplitude (TEGECMOLIVER) 31.6(L) 53.0 - 69.0 mm 10/27/2024 1:43 AM EDT [facility] Citrated Kaolin w/Heparinase Percent Lysis (TEGECMOLIVER) 0.0 0.0 - 3.2 % 10/27/2024 1:43 AM EDT [facility] Whole Blood (Citrate) 10/27/2024 12:13 AM EDT 10/27/2024 12:18 AM EDT Kemar Sahni MD LAB BLOOD ORDERABLES Final Result Performing Organization Address City/State/[facility] Co de Phone Number LAB [address] * (ABNORMAL) Lactic Acid (10/27/2024 12:13 AM EDT) Lactate 0.2(L) 0.5 - 2.2 mmol/L 10/27/2024 12:59 AM EDT LAB Plasma 10/27/2024 12:1 3 AM EDT 10/27/2024 12:31 AM EDT Kemar Sahni MD LAB BLOOD ORDERABLES Final Result LAB [address] [facility]. [address] * Magnesium (10/27/2024 12:13 AM EDT) Magnesium 1.8 1.5 - 2.5 mg/dL 10/27/2024 12:52 AM EDT LAB Plasma 10/27/2024 12:1 3 AM EDT 10/27/2024 12:29 AM EDT Kemar Sahni MD LAB BLOOD ORDERABLES Final Result Performing Organization Address City/State/[facility] Co de Phone Number LAB [address] [facility]. [address] * (ABNORMAL) Hepatic Function Panel (10/27/2024 12:13 AM EDT) Total Bilirubin 1.6(H) 0.0 - 1.5 mg/dL 10/27/2024 12:52 AM EDT LAB Bilirubin, Direct 1.17(H) 0.00 - 0.40 mg/dL 10/27/2024 12:52 AM EDT LAB AST 157(H) 13 - 39 U/L 10/27/2024 12:52 AM EDT LAB ALT 261(H) 7 - 52 U/L 10/27/2024 12:52 AM EDT LAB Alkaline Phosphatase 26(L) 36 - 125 U/L 10/27/2024 12:52 AM EDT LAB Total Protein 3.8(L) 6.4 - 8.9 g/dL 10/27/2024 12:52 AM EDT LAB Albumin 2.8(L) 3.5 - 5.7 g/dL 10/27/2024 12:52 AM EDT LAB Bilirubin, Indirect 0.43 0.00 - 1.10 mg/dL 10/27/2024 12:52 AM EDT LAB Plasma 10/27/2024 12:1 3 AM EDT 10/27/2024 12:29 AM EDT Kemar Sahni MD LAB BLOOD ORDERABLES Final Result Performing Organization Address [facility] Co de Phone Number LAB [address] * (ABNORMAL) Protime-INR (10/27/2024 12:13 AM EDT) Protime 18.6(H) 12.1 - 15.1 seconds 10/27/2024 12:43 AM EDT LAB INR 1.5(H) 0.9 - 1.1 10/27/2024 12:43 AM EDT LAB Comment: RECOMMENDED THERAPEUTIC RANGES USING INR : Stable oral anticoagulant therapy: 2.0 - 3.0 Mechanical prosthetic heart valve: 2.5 - 3.5 Recurrent acute myocardial infarction: 2.5 - 3.5 Plasma 10/27/2024 12:1 3 AM EDT 10/27/2024 12:29 AM EDT Kemar Shani MD LAB BLOOD ORDERABLES Final Result Performing Organization Address [facility] de Phone Number LAB [address] [facility]. [address] * (ABNORMAL) CBC (10/27/2024 12:13 AM EDT) WBC 5.0 3.8 - 10.8 10E3/uL 10/27/2024 12:59 AM EDT LAB RBC 2.70(L) 4.20 - 5.80 10E6/uL 10/27/2024 12:59 AM EDT LAB Hemoglobin 8.5(L) 13.2 - 17.1 g/dL 10/27/2024 12:59 AM EDT LAB Hematocrit 23.9(L) 38.5 - 50.0 % 10/27/2024 12:59 AM EDT LAB MCV 88.5 80.0 - 100.0 fL 10/27/2024 12:59 AM EDT LAB MCH 31.5 27.0 - 33.0 pg 10/27/2024 12:59 AM EDT LAB MCHC 35.6 32.0 - 36.0 g/dL 10/27/2024 12:59 AM EDT LAB RDW 20.6(H) 11.0 - 15.0 % 10/27/2024 12:59 AM EDT LAB Platelets 35(L) 140 - 400 10E3/uL 10/27/2024 12:59 AM EDT LAB Comment: CNV Specimen checked for clots. None detected. MPV 7.6 7.5 - 11.5 fL 10/27/2024 12:59 AM EDT LAB Whole Blood 10/27/2024 12:1 3 AM EDT 10/27/2024 12:29 AM EDT Kemar Sahni MD LAB BLOOD ORDERABLES Final Result Performing Organization Address City/State/[facility] Co de Phone Number LAB [address] * (ABNORMAL) Renal Function Panel w/EGFR (10/27/2024 12:13 AM EDT) Sodium 141 133 - 146 mmol/L 10/27/2024 12:52 AM EDT LAB Potassium 3.2(L) 3.5 - 5.3 mmol/L 10/27/2024 12:52 AM EDT LAB Chloride 109 98 - 110 mmol/L 10/27/2024 12:52 AM EDT LAB CO2 21 21 - 33 mmol/L 10/27/2024 12:52 AM EDT LAB Anion Gap 11 3 - 16 mmol/L 10/27/2024 12:52 AM EDT LAB BUN 64(H) 7 - 25 mg/dL 10/27/2024 12:52 AM EDT LAB Creatinine 2.58(H) 0.60 - 1.30 mg/dL 10/27/2024 12:52 AM EDT LAB Glucose 126(H) 70 - 100 mg/dL 10/27/2024 12:52 AM EDT LAB Calcium 8.9 8.6 - 10.3 mg/dL 10/27/2024 12:52 AM EDT LAB Phosphorus 5.3(H) 2.1 - 4.7 mg/dL 10/27/2024 12:52 AM EDT LAB Albumin 2.8(L) 3.5 - 5.7 g/dL 10/27/2024 12:52 AM EDT LAB Osmolality, Calculated 312(H) 278 - 305 mOsm/kg 10/27/2024 12:52 AM EDT LAB EGFR 31 10/27/2024 12:52 AM EDT LAB Comment:As of 2021, the estimated GFR [...] Sahni MD LAB BLOOD ORDERABLES Final Result LAB [address] [place] [address], [facility] * (ABNORMAL) POC Glucose Monitoring Device (10/27/2024 12:08 AM EDT) POC Glucose Monitoring Device 121(H) 70 - 100 mg/dL 10/27/2024 12:08 AM EDT LAB Blood 10/27/2024 12:0 8 AM EDT 10/27/2024 12:08 AM EDT Semaj Mcnair III, MD POINT OF CARE TEST ORDERABLES Final Result [facility] [address] [facility]. [address] * (ABNORMAL) POC Glucose Monitoring Device (10/26/2024 11:15 PM EDT) [facility] Signature POC Glucose Monitoring Device 120(H) 70 - 100 mg/dL 10/26/2024 11:15 PM EDT LAB Blood 10/26/2024 11:1 5 PM EDT 10/26/2024 11:15 PM EDT Semaj Mcnair III, MD POINT OF CARE TEST ORDERABLES Final Result Performing Organization Address [facility] Co de Phone Number LAB [address] * (ABNORMAL) TEG-Bypass/ECMO/Liver HN (Factor function, Platelet/Fibrin Clot Strength w/Clot Breakdown, Heparinase In All Channels) (10/26/2024 10:36 PM EDT) Citrated Kaolin Reaction Time (TEGECMOLIVER) 10.0(H) 4.6 - 9.1 minutes 10/26/2024 11:53 PM EDT LAB Citrated Kaolin W/Heparinase Reaction Time (TEGECMOLIVER) 10.2(H) 4.3 - 8.3 minutes 10/26/2024 11:53 PM EDT LAB Citrated Kaolin Maximum Amplitude (TEGECMOLIVER) <40.0(L) 52.0 - 69.0 mm 10/26/2024 11:53 PM EDT LAB Citrated Functional Fibrinogen W/Heparinase Maximum Amplitude(TEGEC MOLIVER) 11.3(L) 15.0 - 34.0 mm 10/26/2024 11:53 PM EDT LAB Citrated Rapid Teg W/Heparinase Maximum Amplitude (TEGECMOLIVER) 41.8(L) 53.0 - 69.0 mm 10/26/2024 11:53 PM EDT LAB Citrated Kaolin w/Heparinase Percent Lysis (TEGECMOLIVER) 0.0 0.0 - 3.2 % 10/26/2024 11:53 PM EDT LAB Whole Blood (Citrate) 10/26/2024 10:36 PM EDT 10/26/2024 10:43 PM EDT Kemar Sahni MD LAB BLOOD ORDERABLES Final Result LAB [address] [facility]. [address] * (ABNORMAL) POC Glucose Monitoring Device (10/26/2024 10:14 PM EDT) POC Glucose Monitoring Device 124(H) 70 - 100 mg/dL 10/26/2024 11:11 PM EDT LAB Blood 10/26/2024 10:1 4 PM EDT 10/26/2024 11:11 PM EDT Semaj Mcnair III, MD POINT OF CARE TEST ORDERABLES Final Result Performing Organization Address [facility] Co de Phone Number LAB [address] [facility]. [address] * (ABNORMAL) POC Glucose Monitoring Device (10/26/2024 9:16 PM EDT) POC Glucose Monitoring Device 119(H) 70 - 100 mg/dL 10/26/2024 9:18 PM EDT LAB Blood 10/26/2024 9:16 PM EDT 10/26/2024 9:18 PM EDT Semaj Mcnair III, MD POINT OF CARE TEST ORDERABLES Final Result Performing Organization Address City/[facility]/ZIP Co de Phone Number LAB [address] [facility]. [address] * (ABNORMAL) POC Glucose Monitoring Device (10/26/2024 8:05 PM EDT) POC Glucose Monitoring Device 113(H) 70 - 100 mg/dL 10/26/2024 8:06 PM EDT LAB Blood 10/26/2024 8:05 PM EDT 10/26/2024 8:06 PM EDT Semaj Mcnair III, MD POINT OF CARE TEST ORDERABLES Final Result Performing Organization Address [facility] Co de Phone Number LAB [address] * (ABNORMAL) POC Glucose Monitoring Device (10/26/2024 7:02 PM EDT) POC Glucose Monitoring Device 111(H) 70 - 100 mg/dL 10/26/2024 7:03 PM EDT LAB Blood 10/26/2024 7:02 PM EDT 10/26/2024 7:03 PM EDT Semaj Mcnair III, MD POINT OF CARE TEST ORDERABLES Final Result Performing Organization Address [facility] Co de Phone Number LAB [address] * Transfuse Cryoprecipitate Transfusion Rate: Per dept routine (10/26/2024 6:39 PM EDT) John Pina MD NURSING TREATMENT ORDERABLES - BLOOD ADMIN Final Result Performing Organization Address [facility] Co de Phone Number EXTERNAL * Transfuse Cryoprecipitate Transfusion Rate: Per dept routine, 1 Units (10/26/2024 6:39 PM EDT) John Pina MD NURSING TREATMENT ORDERABLES - BLOOD ADMIN Final Result Performing Organization Address [facility] Co de Phone Number EXTERNAL * (ABNORMAL) POC Glucose Monitoring Device (10/26/2024 6:33 PM EDT) POC Glucose Monitoring Device 110(H) 70 - 100 mg/dL 10/26/2024 6:34 PM EDT LAB Blood 10/26/2024 6:33 PM EDT 10/26/2024 6:34 PM EDT Semaj Mcanir III, MD POINT OF CARE TEST ORDERABLES Final Result Performing Organization Address City/[facility]/ZIP Co de Phone Number LAB [address] [facility]. [address] * Transfuse Cryoprecipitate Transfusion Rate: Per dept routine (10/26/2024 6:22 PM EDT) John Pina MD NURSING TREATMENT ORDERABLES - BLOOD ADMIN Final Result Performing Organization Address [facility] Co de Phone Number EXTERNAL * Transfuse Cryoprecipitate Transfusion Rate: Per dept routine, 1 Units (10/26/2024 6:22 PM EDT) John Pina MD NURSING TREATMENT ORDERABLES - BLOOD ADMIN Final Result Performing Organization Address City/[facility] Co de Phone Number EXTERNAL * (ABNORMAL) POC Glucose Monitoring Device (10/26/2024 6:17 PM EDT) POC Glucose Monitoring Device 104(H) 70 - 100 mg/dL 10/26/2024 6:18 PM EDT LAB Blood 10/26/2024 6:17 PM EDT 10/26/2024 6:18 PM EDT Semaj Mcnair III, MD POINT OF CARE TEST ORDERABLES Final Result Performing Organization Address [facility] Co de Phone Number LAB [address] [facility]. [address] * (ABNORMAL) POC Glucose Monitoring Device (10/26/2024 4:58 PM EDT) POC Glucose Monitoring Device 115(H) 70 - 100 mg/dL 10/26/2024 4:59 PM EDT LAB Blood 10/26/2024 4:58 PM EDT 10/26/2024 4:58 PM EDT Semaj Mcnair III, MD POINT OF CARE TEST ORDERABLES Final Result Performing Organization Address [facility] Co de Phone Number LAB [address] [place] [address] * (ABNORMAL) Calcium Free, Serum (10/26/2024 4:42 PM EDT) Free Calcium, Ser 5.67(H) 4.40 - 5.40 mg/dL 10/26/2024 4:55 PM EDT LAB Comment:Free calcium levels vary inversely with pH by approximately 5% for each 0.1 unit of pH change. Assay results have been normalized to pH = 7.40. Serum 10/26/2024 4:42 PM EDT 10/26/2024 4:47 PM EDT Narrative LAB - 10/26/2024 4:55 PM EDT This test has been developed and its performance characteristics determined by [facility] which is certified under [...] Final Resu lt Performing Organization Address [facility] Co de Phone Number LAB [address] [place] [address], [facility] * Repeat Crossmatch (Recipient Sample) (10/26/2024 4:42 PM EDT) Repeat Cx - Recipient The request and specimen(s) for this test have been received and transported to the [facility] at [address] [place] [address]. The [facility] will report results directly to the client. 10/26/2024 4:49 PM EDT LAB Whole Blood 10/26/2024 4:42 PM EDT 10/26/2024 4:49 PM EDT Narrative LAB - 10/26/2024 4:49 PM EDT To be sent to [facility] for Donor UNOS#[id number] cross match with Blair Gilbert Sveta Judge MD LAB BLOOD ORDERABLES Final Resu lt LAB [address] * (ABNORMAL) Lactic Acid (10/26/2024 4:42 PM EDT) Lactate 0.3(L) 0.5 - 2.2 mmol/L 10/26/2024 5:19 PM EDT LAB Plasma 10/26/2024 4:42 PM EDT 10/26/2024 4:47 PM EDT Kemar Sahni MD LAB BLOOD ORDERABLES Final Result Performing Organization Address [facility]/ZIP Co de Phone Number LAB [address] [facility]. [address] * Magnesium (10/26/2024 4:42 PM EDT) Magnesium 2.0 1.5 - 2.5 mg/dL 10/26/2024 5:24 PM EDT LAB Plasma 10/26/2024 4:42 PM EDT 10/26/2024 4:47 PM EDT Kemar Sahni MD LAB BLOOD ORDERABLES Final Result LAB [address] [facility]. [address] * (ABNORMAL) Hepatic Function Panel (10/26/2024 4:42 PM EDT) Total Bilirubin 2.3(H) 0.0 - 1.5 mg/dL 10/26/2024 5:24 PM EDT LAB Bilirubin, Direct 1.85(H) 0.00 - 0.40 mg/dL 10/26/2024 5:24 PM EDT LAB AST 374(H) 13 - 39 U/L 10/26/2024 5:24 PM EDT LAB ALT 458(H) 7 - 52 U/L 10/26/2024 5:24 PM EDT LAB Alkaline Phosphatase 39 36 - 125 U/L 10/26/2024 5:24 PM EDT LAB Total Protein 3.8(L) 6.4 - 8.9 g/dL 10/26/2024 5:24 PM EDT LAB Albumin 3.0(L) 3.5 - 5.7 g/dL 10/26/2024 5:24 PM EDT LAB Bilirubin, Indirect 0.45 0.00 - 1.10 mg/dL 10/26/2024 5:24 PM EDT LAB Plasma 10/26/2024 4:42 PM EDT 10/26/2024 4:47 PM EDT Kemar Sahni MD LAB BLOOD ORDERABLES Final Result Performing Organization Address City/State/[facility] Co de Phone Number LAB [address] * (ABNORMAL) Protime-INR (10/26/2024 4:42 PM EDT) Protime 20.3(H) 12.1 - 15.1 seconds 10/26/2024 5:12 PM EDT LAB INR 1.7(H) 0.9 - 1.1 10/26/2024 5:12 PM EDT LAB Comment: RECOMMENDED THERAPEUTIC RANGES USING INR : Stable oral anticoagulant therapy: 2.0 - 3.0 Mechanical prosthetic heart valve: 2.5 - 3.5 Recurrent acute myocardial infarction: 2.5 - 3.5 Plasma 10/26/2024 4:42 PM EDT 10/26/2024 4:47 PM EDT Kemar Sahni MD LAB BLOOD ORDERABLES Final Result LAB [address] * (ABNORMAL) CBC (10/26/2024 4:42 PM EDT) WBC 10.0 3.8 - 10.8 10E3/uL 10/26/2024 5:00 PM EDT LAB RBC 3.44(L) 4.20 - 5.80 10E6/uL 10/26/2024 5:00 PM EDT LAB Hemoglobin 10.5(L) 13.2 - 17.1 g/dL 10/26/2024 5:00 PM EDT LAB Hematocrit 30.2(L) 38.5 - 50.0 % 10/26/2024 5:00 PM EDT LAB MCV 87.7 80.0 - 100.0 fL 10/26/2024 5:00 PM EDT LAB MCH 30.6 27.0 - 33.0 pg 10/26/2024 5:00 PM EDT LAB MCHC 34.8 32.0 - 36.0 g/dL 10/26/2024 5:00 PM EDT LAB RDW 20.1(H) 11.0 - 15.0 % 10/26/2024 5:00 PM EDT LAB Platelets 48(L) 140 - 400 10E3/uL 10/26/2024 5:00 PM EDT LAB Comment:Specimen checked for clots. None detected. MPV 7.9 7.5 - 11.5 fL 10/26/2024 5:00 PM EDT LAB Whole Blood 10/26/2024 4:42 PM EDT 10/26/2024 4:47 PM EDT Kemar Sahni MD LAB BLOOD ORDERABLES Final Result LAB [address] * (ABNORMAL) Renal Function Panel w/EGFR (10/26/2024 4:42 PM EDT) Sodium 142 133 - 146 mmol/L 10/26/2024 5:24 PM EDT LAB Potassium 3.3(L) 3.5 - 5.3 mmol/L 10/26/2024 5:24 PM EDT LAB Chloride 109 98 - 110 mmol/L 10/26/2024 5:24 PM EDT LAB CO2 23 21 - 33 mmol/L 10/26/2024 5:24 PM EDT LAB Anion Gap 10 3 - 16 mmol/L 10/26/2024 5:24 PM EDT LAB BUN 63(H) 7 - 25 mg/dL 10/26/2024 5:24 PM EDT LAB Creatinine 2.85(H) 0.60 - 1.30 mg/dL 10/26/2024 5:24 PM EDT LAB Glucose 127(H) 70 - 100 mg/dL 10/26/2024 5:24 PM EDT LAB Calcium 8.9 8.6 - 10.3 mg/dL 10/26/2024 5:24 PM EDT LAB Phosphorus 4.4 2.1 - 4.7 mg/dL 10/26/2024 5:24 PM EDT LAB Albumin 3.0(L) 3.5 - 5.7 g/dL 10/26/2024 5:24 PM EDT LAB Osmolality, Calculated 314(H) 278 - 305 mOsm/kg 10/26/2024 5:24 PM EDT LAB EGFR 28 10/26/2024 5:24 PM EDT LAB Comment:As of 2021, the estimated GFR [...] M, Olivia DC, Emerita ND, Madelyn CA, Dietary Services Director [place], et al. A Unifying Approach for GFR Estimation: Recommendations of the NKF-ASN Task Force on Reassessing the inclusion of Race in Diagnosing Kidney Disease. Am J Kidney Dis. 2020. Plasma 10/26/2024 4:42 PM EDT 10/26/2024 4:47 PM EDT Kemar Sahni MD LAB BLOOD ORDERABLES Final Result Performing Organization Address City/[facility]/ZIP Co de Phone Number LAB [address] [facility]. [address] * (ABNORMAL) POC Glucose Monitoring Device (10/26/2024 3:54 PM EDT) POC Glucose Monitoring Device 126(H) 70 - 100 mg/dL 10/26/2024 3:55 PM EDT LAB Blood 10/26/2024 3:54 PM EDT 10/26/2024 3:55 PM EDT Semaj Mcnair III, MD POINT OF CARE TEST ORDERABLES Final Result Performing Organization Address [facility] Co de Phone Number LAB [address] [facility]. [address] * (ABNORMAL) POC Glucose Monitoring Device (10/26/2024 3:06 PM EDT) POC Glucose Monitoring Device 144(H) 70 - 100 mg/dL 10/26/2024 3:14 PM EDT LAB Blood 10/26/2024 3:06 PM EDT 10/26/2024 3:13 PM EDT Semaj Mcnair III, MD POINT OF CARE TEST ORDERABLES Final Result Performing Organization Address City/[facility] Co de Phone Number LAB [address] [facility]. [address] * (ABNORMAL) TEG-Bypass/ECMO/Liver HN (Factor function, Platelet/Fibrin Clot Strength w/Clot Breakdown, Heparinase In All Channels) (10/26/2024 3:03 PM EDT) Citrated Kaolin Reaction Time (TEGECMOLIVER) 8.2 4.6 - 9.1 minutes 10/26/2024 4:43 PM EDT LAB Citrated Kaolin W/Heparinase Reaction Time (TEGECMOLIVER) 8.2 4.3 - 8.3 minutes 10/26/2024 4:43 PM EDT LAB Citrated Kaolin Maximum Amplitude (TEGECMOLIVER) 41.7(L) 52.0 - 69.0 mm 10/26/2024 4:43 PM EDT LAB Citrated Functional Fibrinogen W/Heparinase Maximum Amplitude(TEGEC MOLIVER) 11.4(L) 15.0 - 34.0 mm 10/26/2024 4:43 PM EDT LAB Citrated Rapid Teg W/Heparinase Maximum Amplitude (TEGECMOLIVER) 38.6(L) 53.0 - 69.0 mm 10/26/2024 4:43 PM EDT [facility] Citrated Kaolin w/Heparinase Percent Lysis (TEGECMOLIVER) 0.0 0.0 - 3.2 % 10/26/2024 4:43 PM EDT [facility] Whole Blood (Citrate) 10/26/2024 3:03 PM EDT 10/26/2024 3:10 PM EDT us Jani Mooney MD LAB BLOOD ORDERABLES Final Resul t Performing Organization Address City/State/[facility] Co de Phone Number LAB [address] [place] [id number] * ECG 12 lead (MUSE) (10/26/2024 2:19 PM EDT) 10/26/2024 2:19 PM EDT Narrative MUSE - 10/27/2024 10:09 AM EDT Ventricular Rate: 105 BPM Atrial Rate: 105 BPM P-R Interval: 128 ms QRS Duration: 94 ms QT: 474 ms QTc: 626 ms R Banks: -37 degrees T Banks: 35 degrees Diagnosis Line: Critical Test Result: Long QTc ^ SINUS TACHYCARDIA ^ LEFT AXIS DEVIATION, LEFT ANTERIOR HEMIBLOCK ^ PROLONGED QT ^ ABNORMAL ECG ^ ^ Confirmed by MD [facility] on 10/27/2024 10:09:25 AM us Quinten Best MD ECG ORDERABLES Final Result MUSE * (ABNORMAL) POC Glucose Monitoring Device (10/26/2024 2:00 PM EDT) POC Glucose Monitoring Device 183(H) 70 - 100 mg/dL 10/26/2024 2:01 PM EDT LAB Blood 10/26/2024 2:00 PM EDT 10/26/2024 2:01 PM EDT Semaj Mcnair III, MD POINT OF CARE TEST ORDERABLES Final Result Performing Organization Address [facility] Co de Phone Number [facility] [address] [facility]. [address] * (ABNORMAL) POC Glucose Monitoring Device (10/26/2024 1:05 PM EDT) POC Glucose Monitoring Device 212(H) 70 - 100 mg/dL 10/26/2024 1:06 PM EDT LAB Blood 10/26/2024 1:05 PM EDT 10/26/2024 1:06 PM EDT us Semaj Mcnair III, MD POINT OF CARE TEST ORDERABLES Final Result Performing Organization Address [facility]/ZIP Co de Phone Number LAB [address] * Transfuse Cryoprecipitate Has consent been [...] Result Performing Organization Address City/[facility] Co de Phone Number EXTERNAL * (ABNORMAL) POC Glucose Monitoring Device (10/26/2024 12:06 PM EDT) POC Glucose Monitoring Device 226(H) 70 - 100 mg/dL 10/26/2024 12:07 PM EDT LAB Blood 10/26/2024 12:0 6 PM EDT 10/26/2024 12:07 PM EDT Semaj Mcnair III, MD POINT OF CARE TEST ORDERABLES Final Result Performing Organization Address [facility] Co de Phone Number LAB [address] * Transfuse Cryoprecipitate Transfusion Rate: Per dept routine (10/26/2024 12:01 PM EDT) John Pina MD NURSING TREATMENT ORDERABLES - BLOOD ADMIN Final Result Performing Organization Address [facility] de Phone Number EXTERNAL * Transfuse Cryoprecipitate Transfusion Rate: Per dept routine, 1 Units (10/26/2024 12:01 PM EDT) John Pina MD NURSING TREATMENT ORDERABLES - BLOOD ADMIN Final Result Performing Organization Address City/[facility] de Phone Number EXTERNAL * Lactic Acid (10/26/2024 10:48 AM EDT) Lactate 1.2 0.5 - 2.2 mmol/L 10/26/2024 11:27 AM EDT LAB Plasma 10/26/2024 10:4 8 AM EDT 10/26/2024 10:53 AM EDT Kemar Sahni MD LAB BLOOD ORDERABLES Final Result Performing Organization Address City/[facility] Co de Phone Number [facility] [address] * Magnesium (10/26/2024 10:48 AM EDT) Magnesium 2.0 1.5 - 2.5 mg/dL 10/26/2024 11:26 AM EDT LAB Plasma 10/26/2024 10:4 8 AM EDT 10/26/2024 10:53 AM EDT Kemar Sahni MD LAB BLOOD ORDERABLES Final Result LAB [address] * (ABNORMAL) Hepatic Function Panel (10/26/2024 10:48 AM EDT) Total Bilirubin 5.9(H) 0.0 - 1.5 mg/dL 10/26/2024 11:26 AM EDT LAB Bilirubin, Direct 4.74(H) 0.00 - 0.40 mg/dL 10/26/2024 11:26 AM EDT LAB AST 872(H) 13 - 39 U/L 10/26/2024 11:26 AM EDT LAB ALT 736(H) 7 - 52 U/L 10/26/2024 11:26 AM EDT LAB Alkaline Phosphatase 56 36 - 125 U/L 10/26/2024 11:26 AM EDT LAB Total Protein 3.5(L) 6.4 - 8.9 g/dL 10/26/2024 11:26 AM EDT LAB Albumin 2.5(L) 3.5 - 5.7 g/dL 10/26/2024 11:26 AM EDT LAB Bilirubin, Indirect 1.16(H) 0.00 - 1.10 mg/dL 10/26/2024 11:26 AM EDT LAB Plasma 10/26/2024 10:4 8 AM EDT 10/26/2024 10:53 AM EDT Kemar Sahni MD LAB BLOOD ORDERABLES Final Result Performing Organization Address City/[facility]/ZIP Co de Phone Number LAB [address] * (ABNORMAL) Protime-INR (10/26/2024 10:48 AM EDT) Protime 23.0(H) 12.1 - 15.1 seconds 10/26/2024 11:26 AM EDT LAB INR 2.0(H) 0.9 - 1.1 10/26/2024 11:26 AM EDT LAB Comment: RECOMMENDED THERAPEUTIC RANGES USING INR : Stable oral anticoagulant therapy: 2.0 - 3.0 Mechanical prosthetic heart valve: 2.5 - 3.5 Recurrent acute myocardial infarction: 2.5 - 3.5 Plasma 10/26/2024 10:4 8 AM EDT 10/26/2024 10:53 AM EDT Kemar Sahni MD LAB BLOOD ORDERABLES Final Result Performing Organization Address [facility] Co de Phone Number LAB [address] * (ABNORMAL) CBC (10/26/2024 10:48 AM EDT) WBC 17.3(H) 3.8 - 10.8 10E3/uL 10/26/2024 11:14 AM EDT LAB RBC 4.22 4.20 - 5.80 10E6/uL 10/26/2024 11:14 AM EDT LAB Hemoglobin 12.8(L) 13.2 - 17.1 g/dL 10/26/2024 11:14 AM EDT LAB Hematocrit 37.2(L) 38.5 - 50.0 % 10/26/2024 11:14 AM EDT LAB MCV 88.3 80.0 - 100.0 fL 10/26/2024 11:14 AM EDT LAB MCH 30.4 27.0 - 33.0 pg 10/26/2024 11:14 AM EDT LAB MCHC 34.4 32.0 - 36.0 g/dL 10/26/2024 11:14 AM EDT LAB RDW 20.8(H) 11.0 - 15.0 % 10/26/2024 11:14 AM EDT LAB Platelets 109(L) 140 - 400 10E3/uL 10/26/2024 11:14 AM EDT LAB MPV 7.5 7.5 - 11.5 fL 10/26/2024 11:14 AM EDT LAB Whole Blood 10/26/2024 10:4 8 AM EDT 10/26/2024 10:53 AM EDT us Kemar Sahni MD LAB BLOOD ORDERABLES Final Result LAB [address] [place] [address], [facility] * (ABNORMAL) Blood gas, arterial (10/26/2024 10:48 AM EDT) O2 Sat, Arterial 97 10/26/2024 10:54 AM EDT LAB FIO2 35% 10/26/2024 10:54 AM EDT LAB pH, Arterial 7.37 7.35 - 7.45 10/26/2024 10:54 AM EDT LAB pCO2, Arterial 36 35 - 45 mm Hg 10/26/2024 10:54 AM EDT LAB pO2, Arterial 91 80 - 100 mm Hg 10/26/2024 10:54 AM EDT LAB HCO3, Arterial 22 22 - 26 mmol/L 10/26/2024 10:54 AM EDT LAB CO2 Content,Arteri al 22(L) 23 - 27 mmol/L 10/26/2024 10:54 AM EDT LAB Base Excess, Arterial -3.9(L) -2.0 - 3.0 mmol/L 10/26/2024 10:54 AM EDT LAB %HBO2, Arterial 94.8(L) 95.0 - 98.0 % 10/26/2024 10:54 AM EDT LAB Carboxyhemoglo bin, Arterial 1.9 % 10/26/2024 10:54 AM EDT [facility]ALTH LAB Comment: CARBOXYHEMOGLOBIN (CO) REFERENCE RANGES: Non-Smokers: <2 % Smokers: <8 % TOXIC: >20 % Methemoglobin, Arterial 0.7 0.0 - 1.5 % 10/26/2024 10:54 AM EDT HEALTH LAB Reduced hemoglobin, Arterial 2.5 0.0 - 5.0 % 10/26/2024 10:54 AM EDT LAB Blood, Arterial 10/26/2024 1 0:48 AM EDT 10/26/2024 10:52 AM EDT us Shay Sifuentes MD LAB BLOOD ORDERABLES Final Resu lt LAB [address] * (ABNORMAL) Renal Function Panel w/EGFR (10/26/2024 10:48 AM EDT) Sodium 139 133 - 146 mmol/L 10/26/2024 11:26 AM EDT LAB Potassium 2.9(LL) 3.5 - 5.3 mmol/L 10/26/2024 11:26 AM EDT LAB Comment:K CRITICAL VALUE WAS PREVIOUSLY CALLED Chloride 107 98 - 110 mmol/L 10/26/2024 11:26 AM EDT LAB CO2 22 21 - 33 mmol/L 10/26/2024 11:26 AM EDT LAB Anion Gap 10 3 - 16 mmol/L 10/26/2024 11:26 AM EDT LAB BUN 61(H) 7 - 25 mg/dL 10/26/2024 11:26 AM EDT LAB Creatinine 2.78(H) 0.60 - 1.30 mg/dL 10/26/2024 11:26 AM EDT LAB Glucose 253(H) 70 - 100 mg/dL 10/26/2024 11:26 AM EDT LAB Calcium 8.8 8.6 - 10.3 mg/dL 10/26/2024 11:26 AM EDT LAB Phosphorus 4.1 2.1 - 4.7 mg/dL 10/26/2024 11:26 AM EDT LAB Albumin 2.5(L) 3.5 - 5.7 g/dL 10/26/2024 11:26 AM EDT LAB Osmolality, Calculated 314(H) 278 - 305 mOsm/kg 10/26/2024 11:26 AM EDT LAB EGFR 28 10/26/2024 11:26 AM EDT LAB Comment:As of 2021, the estimated GFR [...] Sahni MD LAB BLOOD ORDERABLES Final Result LAB [address] [place], [place] [address] * (ABNORMAL) POC Glucose Monitoring Device (10/26/2024 10:47 AM EDT) POC Glucose Monitoring Device 234(H) 70 - 100 mg/dL 10/26/2024 10:48 AM EDT LAB Blood 10/26/2024 10:4 7 AM EDT 10/26/2024 10:48 AM EDT Semaj Mcnair III, MD POINT OF CARE TEST ORDERABLES Final Result Performing Organization Address City/[facility] Co de Phone Number LAB [address] * CARISA Rhythm Strip - Scan (10/26/2024 10:45 AM EDT) us Scanning Uchhim SCAN DOCS - NO RESULTS Final Res ult * (ABNORMAL) POC Glucose Monitoring Device (10/26/2024 10:08 AM EDT) POC Glucose Monitoring Device 235(H) 70 - 100 mg/dL 10/26/2024 10:09 AM EDT LAB Blood 10/26/2024 10:0 8 AM EDT 10/26/2024 10:09 AM EDT us Semaj Mcnair III, MD POINT OF CARE TEST ORDERABLES Final Result Performing Organization Address [facility] Co de Phone Number LAB [address] [facility]. [address] * (ABNORMAL) POC Glucose Monitoring Device (10/26/2024 8:57 AM EDT) POC Glucose Monitoring Device 232(H) 70 - 100 mg/dL 10/26/2024 8:59 AM EDT LAB Blood 10/26/2024 8:57 AM EDT 10/26/2024 8:58 AM EDT us Semaj Mcnair III, MD POINT OF CARE TEST ORDERABLES Final Result Performing Organization Address City/[facility] Co de Phone Number LAB [address] [facility]. [address] * ECG 12 lead (MUSE) (10/26/2024 8:16 AM EDT) 10/26/2024 8:16 AM EDT Narrative MUSE - 10/27/2024 10:09 AM EDT Ventricular Rate: 112 BPM QRS Duration: 96 ms QT: 452 ms QTc: 616 ms R Banks: -41 degrees T Banks: 40 degrees Diagnosis Line: Critical Test Result: Long QTc ^ SINUS TACHYCARDIA OCCASIONAL PREMATURE VENTRICULAR COMPLEXES ^ LEFT AXIS DEVIATION, LEFT ANTERIOR HEMIBLOCK ^ PROLONGED QT ^ ABNORMAL ECG ^ ^ Confirmed by MD HA, [facility] ([id number]) on 10/27/2024 10:09:18 AM us Shay [...] Glucose Monitoring Device (10/26/2024 7:59 AM EDT) [facility] POC Glucose Monitoring Device 229(H) 70 - 100 mg/dL 10/26/2024 8:01 AM EDT LAB Blood 10/26/2024 7:59 AM EDT 10/26/2024 8:00 AM EDT Semaj Mcnair III, MD POINT OF CARE TEST ORDERABLES Final Result LAB [address] * (ABNORMAL) TEG-Bypass/ECMO/Liver HN (Factor function, Platelet/Fibrin Clot Strength w/Clot Breakdown, Heparinase In All Channels) (10/26/2024 7:59 AM EDT) Citrated Kaolin Reaction Time (TEGECMOLIVER) 8.2 4.6 - 9.1 minutes 10/26/2024 10:36 AM EDT LAB Citrated Kaolin W/Heparinase Reaction Time (TEGECMOLIVER) 8.1 4.3 - 8.3 minutes 10/26/2024 10:36 AM EDT LAB Citrated Kaolin Maximum Amplitude (TEGECMOLIVER) 46.8(L) 52.0 - 69.0 mm 10/26/2024 10:36 AM EDT LAB Citrated Functional Fibrinogen W/Heparinase Maximum Amplitude(TEGEC MOLIVER) 10.5(L) 15.0 - 34.0 mm 10/26/2024 10:36 AM EDT LAB Citrated Rapid Teg W/Heparinase Maximum Amplitude (TEGECMOLIVER) 45.5(L) 53.0 - 69.0 mm 10/26/2024 10:36 AM EDT LAB Citrated Kaolin w/Heparinase Percent Lysis (TEGECMOLIVER) 0.0 0.0 - 3.2 % 10/26/2024 10:36 AM EDT LAB Whole Blood (Citrate) 10/26/2024 7:59 AM EDT 10/26/2024 8:05 AM EDT Shay Sifuentes MD LAB BLOOD ORDERABLES Final Resu lt Performing Organization Address [facility]/ZIP Co de Phone Number LAB [address] * (ABNORMAL) POC Glucose Monitoring Device (10/26/2024 6:12 AM EDT) POC Glucose Monitoring Device 196(H) 70 - 100 mg/dL 10/26/2024 6:13 AM EDT LAB Blood 10/26/2024 6:12 AM EDT 10/26/2024 6:13 AM EDT Semaj Mcnair III, MD POINT OF CARE TEST ORDERABLES Final Result Performing Organization Address [facility] de Phone Number LAB [address] * Lactic Acid (10/26/2024 6:10 AM EDT) Lactate 1.2 0.5 - 2.2 mmol/L 10/26/2024 6:39 AM EDT LAB Plasma 10/26/2024 6:10 AM EDT 10/26/2024 6:19 AM EDT Sveta Judge MD LAB BLOOD ORDERABLES Final Resu lt Performing Organization Address [facility] Co de Phone Number LAB [address] * (ABNORMAL) Fibrinogen (10/26/2024 6:10 AM EDT) Fibrinogen 160(L) 218 - 406 mg/dL 10/26/2024 6:41 AM EDT LAB Plasma 10/26/2024 6:10 AM EDT 10/26/2024 6:26 AM EDT Sveta Judge MD LAB BLOOD ORDERABLES Final Resu lt Performing Organization Address [facility] de Phone Number LAB [address] [place] [address]. [address] * (ABNORMAL) Protime-INR (10/26/2024 6:10 AM EDT) Protime 25.0(H) 12.1 - 15.1 seconds 10/26/2024 6:41 AM EDT LAB INR 2.2(H) 0.9 - 1.1 10/26/2024 6:41 AM EDT LAB Comment: RECOMMENDED THERAPEUTIC RANGES USING INR : Stable oral anticoagulant therapy: 2.0 - 3.0 Mechanical prosthetic heart valve: 2.5 - 3.5 Recurrent acute myocardial infarction: 2.5 - 3.5 Plasma 10/26/2024 6:10 AM EDT 10/26/2024 6:26 AM EDT Sveta Judge MD LAB BLOOD ORDERABLES Final Resu lt Performing Organization Address [facility] de Phone Number LAB [address] [facility]. [address] * (ABNORMAL) Blood gas, arterial (10/26/2024 6:10 AM EDT) O2 Sat, Arterial 98 10/26/2024 6:23 AM EDT LAB FIO2 60 10/26/2024 6:23 AM EDT LAB pH, Arterial 7.27(L) 7.35 - 7.45 10/26/2024 6:23 AM EDT LAB pCO2, Arterial 47(H) 35 - 45 mm Hg 10/26/2024 6:23 AM EDT LAB pO2, Arterial 127(H) 80 - 100 mm Hg 10/26/2024 6:23 AM EDT LAB HCO3, Arterial 21(L) 22 - 26 mmol/L 10/26/2024 6:23 AM EDT LAB CO2 Content,Arteri al 23 23 - 27 mmol/L 10/26/2024 6:23 AM EDT LAB Base Excess, Arterial -5.4(L) -2.0 - 3.0 mmol/L 10/26/2024 6:23 AM EDT LAB %HBO2, Arterial 94.6(L) 95.0 - 98.0 % 10/26/2024 6:23 AM EDT LAB Carboxyhemoglo bin, Arterial 2.0 % 10/26/2024 6:23 AM EDT LAB Comment: CARBOXYHEMOGLOBIN (CO) REFERENCE RANGES: Non-Smokers: <2 % Smokers: <8 % TOXIC: >20 % Methemoglobin, Arterial 1.6(H) 0.0 - 1.5 % 10/26/2024 6:23 AM EDT LAB Reduced hemoglobin, Arterial 1.8 0.0 - 5.0 % 10/26/2024 6:23 AM EDT LAB Blood, Arterial 10/26/2024 6 :10 AM EDT 10/26/2024 6:20 AM EDT Sveta Judge MD LAB BLOOD ORDERABLES Final Resu lt LAB [address] * Magnesium (10/26/2024 6:10 AM EDT) Magnesium 1.5 1.5 - 2.5 mg/dL 10/26/2024 7:09 AM EDT LAB Plasma 10/26/2024 6:10 AM EDT 10/26/2024 6:23 AM EDT Sveta Judge MD LAB BLOOD ORDERABLES Final Resu lt LAB [address] [place] [address], [facility] * (ABNORMAL) Hepatic Function Panel (10/26/2024 6:10 AM EDT) Total Bilirubin 6.2(H) 0.0 - 1.5 mg/dL 10/26/2024 7:11 AM EDT LAB Bilirubin, Direct 5.26(H) 0.00 - 0.40 mg/dL 10/26/2024 7:11 AM EDT LAB AST 1,071(H) 13 - 39 U/L 10/26/2024 7:11 AM EDT LAB ALT 805(H) 7 - 52 U/L 10/26/2024 7:11 AM EDT LAB Alkaline Phosphatase 55 36 - 125 U/L 10/26/2024 7:11 AM EDT LAB Total Protein <3.0(L) 6.4 - 8.9 g/dL 10/26/2024 7:11 AM EDT LAB Albumin 1.9(L) 3.5 - 5.7 g/dL 10/26/2024 7:11 AM EDT LAB Bilirubin, Indirect 0.94 0.00 - 1.10 mg/dL 10/26/2024 7:11 AM EDT LAB Plasma 10/26/2024 6:10 AM EDT 10/26/2024 6:23 AM EDT Sveta Judge MD LAB BLOOD ORDERABLES Final Resu lt LAB [address] [place], [place] [address] * (ABNORMAL) Renal Function Panel w/EGFR (10/26/2024 6:10 AM EDT) Sodium 141 133 - 146 mmol/L 10/26/2024 7:09 AM EDT LAB Potassium 2.8(LL) 3.5 - 5.3 mmol/L 10/26/2024 7:09 AM EDT LAB Comment:Critical value previ ously called. Chloride 106 98 - 110 mmol/L 10/26/2024 7:09 AM EDT LAB CO2 25 21 - 33 mmol/L 10/26/2024 7:09 AM EDT LAB Anion Gap 10 3 - 16 mmol/L 10/26/2024 7:09 AM EDT LAB BUN 57(H) 7 - 25 mg/dL 10/26/2024 7:09 AM EDT LAB Creatinine 2.70(H) 0.60 - 1.30 mg/dL 10/26/2024 7:09 AM EDT LAB Glucose 210(H) 70 - 100 mg/dL 10/26/2024 7:09 AM EDT LAB Calcium 8.7 8.6 - 10.3 mg/dL 10/26/2024 7:09 AM EDT LAB Phosphorus 5.4(H) 2.1 - 4.7 mg/dL 10/26/2024 7:09 AM EDT LAB Albumin 1.9(L) 3.5 - 5.7 g/dL 10/26/2024 7:11 AM EDT LAB Osmolality, Calculated 314(H) 278 - 305 mOsm/kg 10/26/2024 7:09 AM EDT LAB EGFR 29 10/26/2024 7:09 AM EDT LAB Comment:As of 2021, the estimated GFR [...] AM EDT 10/26/2024 6:23 AM EDT Sveta uJdge MD LAB BLOOD ORDERABLES Final Resu lt LAB [address] * (ABNORMAL) CBC (10/26/2024 6:10 AM EDT) WBC 14.8(H) 3.8 - 10.8 10E3/uL 10/26/2024 6:46 AM EDT LAB RBC 4.04(L) 4.20 - 5.80 10E6/uL 10/26/2024 6:46 AM EDT LAB Hemoglobin 12.7(L) 13.2 - 17.1 g/dL 10/26/2024 6:46 AM EDT LAB Hematocrit 35.9(L) 38.5 - 50.0 % 10/26/2024 6:46 AM EDT LAB MCV 89.0 80.0 - 100.0 fL 10/26/2024 6:46 AM EDT LAB MCH 31.3 27.0 - 33.0 pg 10/26/2024 6:46 AM EDT LAB MCHC 35.2 32.0 - 36.0 g/dL 10/26/2024 6:46 AM EDT LAB RDW 19.7(H) 11.0 - 15.0 % 10/26/2024 6:46 AM EDT LAB Platelets 107(L) 140 - 400 10E3/uL 10/26/2024 6:46 AM EDT LAB MPV 7.4(L) 7.5 - 11.5 fL 10/26/2024 6:46 AM EDT LAB Whole Blood 10/26/2024 6:10 AM EDT 10/26/2024 6:26 AM EDT Sveta Judge MD LAB BLOOD ORDERABLES Final Resu lt LAB [address] * (ABNORMAL) POC INR (10/26/2024 5:16 AM EDT) Prothrombin Time INR, POC 2.4(H) 0.8 - 1.4 10/27/2024 6:51 AM EDT LAB Comment: Test results may vary using [...] ORDERABLES Final Result Performing Organization Address [facility] Co de Phone Number [facility] [address] [place] [address]. [address] * POC Sample Type (10/26/2024 5:14 AM EDT) Pathologist [facility] POC Sample Type Arterial 10/26/2024 5:31 AM EDT [facility] Blood, Arterial 10/26/2024 5 :14 AM EDT 10/26/2024 5:31 AM EDT us Semaj Mcnair III, MD POINT OF CARE TEST ORDERABLES Final Result Performing Organization Address [facility] Co de Phone Number [facility] [address] [place] [address]. [address] * POC Anion Gap (10/26/2024 5:14 AM EDT) POC Anion Gap, Arterial 12 3 - 16 mmol/L 10/26/2024 5:31 AM EDT LAB Blood, Arterial 10/26/2024 5 :14 AM EDT 10/26/2024 5:31 AM EDT us Semaj Mcnair III, MD POINT OF CARE TEST ORDERABLES Final Result Performing Organization Address City/[facility]/ZIP Co de Phone Number LAB [address] * POC Chloride (10/26/2024 5:14 AM EDT) POC Chloride 104 98 - 110 mmol/L 10/26/2024 5:31 AM EDT LAB Blood, Arterial 10/26/2024 5 :14 AM EDT 10/26/2024 5:31 AM EDT us Semaj Mcnair III, MD POINT OF CARE TEST ORDERABLES Final Result Performing Organization Address [facility] de Phone Number LAB [address] * (ABNORMAL) POC Hemoglobin (10/26/2024 5:14 AM EDT) POC Hemoglobin 9.5(L) 14.0 - 18.0 g/dL 10/26/2024 5:31 AM EDT LAB Blood, Arterial 10/26/2024 5 :14 AM EDT 10/26/2024 5:31 AM EDT us Semaj Mcnair III, MD POINT OF CARE TEST ORDERABLES Final Result Performing Organization Address [facility] de Phone Number LAB [address] [facility]. [address] * (ABNORMAL) POC hematocrit (10/26/2024 5:14 AM EDT) POC Hematocrit 28.0(L) 40 - 52 % 10/26/2024 5:31 AM EDT LAB Blood, Arterial 10/26/2024 5 :14 AM EDT 10/26/2024 5:31 AM EDT us Semaj Mcnair III, MD POINT OF CARE TEST ORDERABLES Final Result Performing Organization Address City/[facility]/ZIP Co de Phone Number LAB [address] * POC Lactate (10/26/2024 5:14 AM EDT) POC Lactate 1.76 0.50 - 2.20 mmol/L 10/26/2024 5:31 AM EDT LAB Blood, Arterial 10/26/2024 5 :14 AM EDT 10/26/2024 5:31 AM EDT us Semaj Mcnair III, MD POINT OF CARE TEST ORDERABLES Final Result LAB [address] * (ABNORMAL) POC Glucose (10/26/2024 5:14 AM EDT) POC Glucose, Arterial 183(H) 70 - 100 mg/dL 10/26/2024 5:31 AM EDT LAB Blood, Arterial 10/26/2024 5 :14 AM EDT 10/26/2024 5:31 AM EDT us Semaj Mcnair III, MD POINT OF CARE TEST ORDERABLES Final Result Performing Organization Address City/[facility]/ZIP Co de Phone Number LAB [address] * (ABNORMAL) POC Ionized Calcium (10/26/2024 5:14 AM EDT) POC Ionized Calcium 5.50(H) 4.50 - 5.30 mg/dL 10/26/2024 5:31 AM EDT LAB Blood, Arterial 10/26/2024 5 :14 AM EDT 10/26/2024 5:31 AM EDT us Semaj Mcnair III, MD POINT OF CARE TEST ORDERABLES Final Result LAB [address] * (ABNORMAL) POC Potassium (10/26/2024 5:14 AM EDT) POC Potassium 2.8(LL) 3.5 - 5.3 mmol/L 10/26/2024 5:31 AM EDT LAB Blood, Arterial 10/26/2024 5 :14 AM EDT 10/26/2024 5:31 AM EDT Semaj Mcnair III, MD POINT OF CARE TEST ORDERABLES Final Result LAB [address] [place] [address]. [address] * POC Sodium (10/26/2024 5:14 AM EDT) POC Sodium 138 136 - 146 mmol/L 10/26/2024 5:31 AM EDT LAB Blood, Arterial 10/26/2024 5 :14 AM EDT 10/26/2024 5:31 AM EDT Semja Mcnair III, MD POINT OF CARE TEST ORDERABLES Final Result LAB [address] [facility]. [address] * POC TCO2 (10/26/2024 5:14 AM EDT) POC TCO2, Arterial 23 23 - 27 mmol/L 10/26/2024 5:31 AM EDT LAB Blood, Arterial 10/26/2024 5 :14 AM EDT 10/26/2024 5:31 AM EDT us Semaj Mcnair III, MD POINT OF CARE TEST ORDERABLES Final Result LAB [address] [place] [address]. [address] * (ABNORMAL) POC O2 SAT (10/26/2024 5:14 AM EDT) POC O2 Saturation, Arterial 99(H) 95 - 98 % 10/26/2024 5:31 AM EDT LAB Blood, Arterial 10/26/2024 5 :14 AM EDT 10/26/2024 5:31 AM EDT us Semaj Mcnair III, MD POINT OF CARE TEST ORDERABLES Final Result Performing Organization Address City/[facility]/ZIP Co de Phone Number LAB [address] * (ABNORMAL) POC Base Excess (10/26/2024 5:14 AM EDT) POC Base Excess, Arterial -5(L) -2 - 3 mmol/L 10/26/2024 5:31 AM EDT LAB Blood, Arterial 10/26/2024 5 :14 AM EDT 10/26/2024 5:31 AM EDT us Semaj Mcnair III, MD POINT OF CARE TEST ORDERABLES Final Result Performing Organization Address [facility] Co de Phone Number LAB [address] [facility]. [address] * POC HCO3 (10/26/2024 5:14 AM EDT) POC HCO3, Arterial 22 22 - 26 mmol/L 10/26/2024 5:31 AM EDT LAB Blood, Arterial 10/26/2024 5 :14 AM EDT 10/26/2024 5:31 AM EDT us Semaj Mcnair III, MD POINT OF CARE TEST ORDERABLES Final Result Performing Organization Address City/[facility]/ZIP Co de Phone Number LAB [address] * (ABNORMAL) POC PO2 (10/26/2024 5:14 AM EDT) POC pO2, Arterial 133(H) 80 - 100 mm Hg 10/26/2024 5:31 AM EDT LAB Blood, Arterial 10/26/2024 5 :14 AM EDT 10/26/2024 5:31 AM EDT us Semaj Mcnair III, MD POINT OF CARE TEST ORDERABLES Final Result LAB [address] * POC PCO2 (10/26/2024 5:14 AM EDT) POC pCO2, Arterial 45 35 - 45 mm Hg 10/26/2024 5:31 AM EDT LAB Blood, Arterial 10/26/2024 5 :14 AM EDT 10/26/2024 5:31 AM EDT us Semaj Mcnair III, MD POINT OF CARE TEST ORDERABLES Final Result Performing Organization Address [facility] Co de Phone Number [facility] [address] [facility]. [address] * (ABNORMAL) POC pH (10/26/2024 5:14 AM EDT) POC pH, Arterial 7.29(L) 7.35 - 7.45 10/26/2024 5:31 AM EDT LAB Blood, Arterial 10/26/2024 5 :14 AM EDT 10/26/2024 5:31 AM EDT us Semaj Mcnair III, MD POINT OF CARE TEST ORDERABLES Final Result Performing Organization Address City/[facility] Co de Phone Number LAB [address] [facility]. [address] * Transfuse Cryoprecipitate (10/26/2024 4:37 AM [...] TEST ORDERABLES Final Result Performing Organization Address City/[facility]/ZIP Co de Phone Number [facility] [address] [place] [address] * POC Sample Type (10/26/2024 4:24 AM EDT) Pathologist [facility] POC Sample Type Arterial 10/26/2024 5:09 AM EDT LAB Blood, Arterial 10/26/2024 4 :24 AM EDT 10/26/2024 5:09 AM EDT Semaj Mcnair III, MD POINT OF CARE TEST ORDERABLES Final Result Performing Organization Address City/[facility]/ZIP Co de Phone Number [facility] [address] [place] [address] * POC Anion Gap (10/26/2024 4:24 AM EDT) Pathologist [facility] POC Anion Gap, Arterial 14 3 - 16 mmol/L 10/26/2024 5:09 AM EDT LAB Blood, Arterial 10/26/2024 4 :24 AM EDT 10/26/2024 5:09 AM EDT us Semaj Mcnair III, MD POINT OF CARE TEST ORDERABLES Final Result Performing Organization Address City/[facility] Co de Phone Number [facility] [address] [place] [address]. [address] * POC Chloride (10/26/2024 4:24 AM EDT) POC Chloride 103 98 - 110 mmol/L 10/26/2024 5:09 AM EDT LAB Blood, Arterial 10/26/2024 4 :24 AM EDT 10/26/2024 5:09 AM EDT us Semaj Mcnair III, MD POINT OF CARE TEST ORDERABLES Final Result Performing Organization Address [facility] Co de Phone Number [facility] [address] [facility]. [address] * (ABNORMAL) POC Hemoglobin (10/26/2024 4:24 AM EDT) POC Hemoglobin 10.3(L) 14.0 - 18.0 g/dL 10/26/2024 5:09 AM EDT LAB Blood, Arterial 10/26/2024 4 :24 AM EDT 10/26/2024 5:09 AM EDT us Semaj Mcnair III, MD POINT OF CARE TEST ORDERABLES Final Result Performing Organization Address City/[facility] Co de Phone Number [facility] [address] [place] [address]. [address] * (ABNORMAL) POC hematocrit (10/26/2024 4:24 AM EDT) POC Hematocrit 30.0(L) 40 - 52 % 10/26/2024 5:09 AM EDT LAB Blood, Arterial 10/26/2024 4 :24 AM EDT 10/26/2024 5:09 AM EDT us Semaj Mcnair III, MD POINT OF CARE TEST ORDERABLES Final Result Performing Organization Address City/[facility]/ZIP Co de Phone Number [facility] [address] [place] [address]. [address] * (ABNORMAL) POC Lactate (10/26/2024 4:24 AM EDT) POC Lactate 2.43(H) 0.50 - 2.20 mmol/L 10/26/2024 5:09 AM EDT LAB Blood, Arterial 10/26/2024 4 :24 AM EDT 10/26/2024 5:09 AM EDT us Semaj Mcnair III, MD POINT OF CARE TEST ORDERABLES Final Result Performing Organization Address [facility] Co de Phone Number [facility] [address] [facility]. [address] * (ABNORMAL) POC Glucose (10/26/2024 4:24 AM EDT) POC Glucose, Arterial 185(H) 70 - 100 mg/dL 10/26/2024 5:09 AM EDT LAB Blood, Arterial 10/26/2024 4 :24 AM EDT 10/26/2024 5:09 AM EDT us Semaj Mcnair III, MD POINT OF CARE TEST ORDERABLES Final Result Performing Organization Address City/[facility] Co de Phone Number [facility] [address] [place] [address]. [address] * POC Ionized Calcium (10/26/2024 4:24 AM EDT) POC Ionized Calcium 5.20 4.50 - 5.30 mg/dL 10/26/2024 5:09 AM EDT LAB Blood, Arterial 10/26/2024 4 :24 AM EDT 10/26/2024 5:09 AM EDT us Semaj Mcnair III, MD POINT OF CARE TEST ORDERABLES Final Result Performing Organization Address City/[facility]/ZIP Co de Phone Number [facility] [address] [place] [address]. [address] * (ABNORMAL) POC Potassium (10/26/2024 4:24 AM EDT) POC Potassium 2.8(LL) 3.5 - 5.3 mmol/L 10/26/2024 5:09 AM EDT LAB Blood, Arterial 10/26/2024 4 :24 AM EDT 10/26/2024 5:09 AM EDT us Semaj Mcnair III, MD POINT OF CARE TEST ORDERABLES Final Result Performing Organization Address [facility] Co de Phone Number LAB [address] [facility]. [address] * POC Sodium (10/26/2024 4:24 AM EDT) POC Sodium 139 136 - 146 mmol/L 10/26/2024 5:09 AM EDT LAB Blood, Arterial 10/26/2024 4 :24 AM EDT 10/26/2024 5:09 AM EDT us Semaj Mcnair III, MD POINT OF CARE TEST ORDERABLES Final Result Performing Organization Address City/[facility] Co de Phone Number LAB [address] [place] [address]. [address] * POC TCO2 (10/26/2024 4:24 AM EDT) POC TCO2, Arterial 23 23 - 27 mmol/L 10/26/2024 5:09 AM EDT LAB Blood, Arterial 10/26/2024 4 :24 AM EDT 10/26/2024 5:09 AM EDT us Semaj Mcnair III, MD POINT OF CARE TEST ORDERABLES Final Result LAB [address] * POC O2 SAT (10/26/2024 4:24 AM EDT) POC O2 Saturation, Arterial 96 95 - 98 % 10/26/2024 5:09 AM EDT LAB Blood, Arterial 10/26/2024 4 :24 AM EDT 10/26/2024 5:09 AM EDT us Semaj Mcnair III, MD POINT OF CARE TEST ORDERABLES Final Result Performing Organization Address City/[facility] Co de Phone Number LAB [address] * (ABNORMAL) POC Base Excess (10/26/2024 4:24 AM EDT) POC Base Excess, Arterial -5(L) -2 - 3 mmol/L 10/26/2024 5:09 AM EDT LAB Blood, Arterial 10/26/2024 4 :24 AM EDT 10/26/2024 5:09 AM EDT us Semaj Mcnair III, MD POINT OF CARE TEST ORDERABLES Final Result LAB [address] * POC HCO3 (10/26/2024 4:24 AM EDT) POC HCO3, Arterial 22 22 - 26 mmol/L 10/26/2024 5:09 AM EDT LAB Blood, Arterial 10/26/2024 4 :24 AM EDT 10/26/2024 5:09 AM EDT us Semaj Mcnair III, MD POINT OF CARE TEST ORDERABLES Final Result Performing Organization Address City/[facility]/ZIP Co de Phone Number [facility] [address] * POC PO2 (10/26/2024 4:24 AM EDT) POC pO2, Arterial 93 80 - 100 mm Hg 10/26/2024 5:09 AM EDT LAB Blood, Arterial 10/26/2024 4 :24 AM EDT 10/26/2024 5:09 AM EDT us Semaj Mcnair III, MD POINT OF CARE TEST ORDERABLES Final Result Performing Organization Address [facility] Co de Phone Number [address] * POC PCO2 (10/26/2024 4:24 AM EDT) POC pCO2, Arterial 44 35 - 45 mm Hg 10/26/2024 5:09 AM EDT LAB Blood, Arterial 10/26/2024 4 :24 AM EDT 10/26/2024 5:09 AM EDT us Semaj Mcnair III, MD POINT OF CARE TEST ORDERABLES Final Result Performing Organization Address City/[facility] Co de Phone Number [facility] [address] [facility]. [address] * (ABNORMAL) POC pH (10/26/2024 4:24 AM EDT) POC pH, Arterial 7.30(L) 7.35 - 7.45 10/26/2024 5:09 AM EDT LAB Blood, Arterial 10/26/2024 4 :24 AM EDT 10/26/2024 5:09 AM EDT us Semaj Mcnair III, MD POINT OF CARE TEST ORDERABLES Final Result Performing Organization Address [facility] Co de Phone Number LAB [address] * Transfuse Platelets (10/26/2024 4:14 AM EDT) Ben Blake MD NURSING TREATMENT ORDERABLES - BLOOD ADMIN Final Result * Transfuse Fresh Frozen Plasma (10/26/2024 3:47 AM EDT) Ben Blake MD NURSING TREATMENT ORDERABLES - BLOOD ADMIN Final Result * (ABNORMAL) POC INR (10/26/2024 3:34 AM EDT) Prothrombin Time INR, POC 2.8(H) 0.8 - 1.4 10/27/2024 6:51 AM EDT LAB Comment: Test results may vary using [...] ORDERABLES Final Result Performing Organization Address [facility] Co de Phone Number LAB [address] * POC Sample Type (10/26/2024 3:31 AM EDT) POC Sample Type Arterial 10/26/2024 4:11 AM EDT LAB Blood, Arterial 10/26/2024 3 :31 AM EDT 10/26/2024 4:11 AM EDT Semaj Mcnair III, MD POINT OF CARE TEST ORDERABLES Final Result Performing Organization Address City/[facility]/ZIP Co de Phone Number LAB [address] * POC Anion Gap (10/26/2024 3:31 AM EDT) POC Anion Gap, Arterial 15 3 - 16 mmol/L 10/26/2024 4:11 AM EDT LAB Blood, Arterial 10/26/2024 3 :31 AM EDT 10/26/2024 4:11 AM EDT us Semaj Mcnair III, MD POINT OF CARE TEST ORDERABLES Final Result LAB [address] * POC Chloride (10/26/2024 3:31 AM EDT) Pathologist [facility] POC Chloride 105 98 - 110 mmol/L 10/26/2024 4:11 AM EDT LAB Blood, Arterial 10/26/2024 3 :31 AM EDT 10/26/2024 4:11 AM EDT us Semaj Mcnair III, MD POINT OF CARE TEST ORDERABLES Final Result Performing Organization Address City/[facility]/ZIP Co de Phone Number LAB [address] * (ABNORMAL) POC Hemoglobin (10/26/2024 3:31 AM EDT) Pathologist [facility] POC Hemoglobin 9.7(L) 14.0 - 18.0 g/dL 10/26/2024 4:11 AM EDT LAB Blood, Arterial 10/26/2024 3 :31 AM EDT 10/26/2024 4:11 AM EDT us Semaj Mcnair III, MD POINT OF CARE TEST ORDERABLES Final Result LAB [address] * (ABNORMAL) POC hematocrit (10/26/2024 3:31 AM EDT) POC Hematocrit 29.0(L) 40 - 52 % 10/26/2024 4:11 AM EDT LAB Blood, Arterial 10/26/2024 3 :31 AM EDT 10/26/2024 4:11 AM EDT us Semaj Mcnair III, MD POINT OF CARE TEST ORDERABLES Final Result LAB [address] [facility] * (ABNORMAL) POC Lactate (10/26/2024 3:31 AM EDT) POC Lactate 3.54(H) 0.50 - 2.20 mmol/L 10/26/2024 4:11 AM EDT LAB Blood, Arterial 10/26/2024 3 :31 AM EDT 10/26/2024 4:11 AM EDT us Semaj Mcnair III, MD POINT OF CARE TEST ORDERABLES Final Result Performing Organization Address [facility] Co de Phone Number LAB [address] [facility]. [address] * (ABNORMAL) POC Glucose (10/26/2024 3:31 AM EDT) POC Glucose, Arterial 153(H) 70 - 100 mg/dL 10/26/2024 4:11 AM EDT LAB Blood, Arterial 10/26/2024 3 :31 AM EDT 10/26/2024 4:11 AM EDT us Semaj Mcnair III, MD POINT OF CARE TEST ORDERABLES Final Result Performing Organization Address City/[facility]/ZIP Co de Phone Number LAB [address] [facility]. [address] * POC Ionized Calcium (10/26/2024 3:31 AM EDT) POC Ionized Calcium 5.10 4.50 - 5.30 mg/dL 10/26/2024 4:11 AM EDT LAB Blood, Arterial 10/26/2024 3 :31 AM EDT 10/26/2024 4:11 AM EDT us Semaj Mcnair III, MD POINT OF CARE TEST ORDERABLES Final Result LAB [address] [facility]. [address] * (ABNORMAL) POC Potassium (10/26/2024 3:31 AM EDT) [facility] POC Potassium 2.6(LL) 3.5 - 5.3 mmol/L 10/26/2024 4:11 AM EDT LAB Blood, Arterial 10/26/2024 3 :31 AM EDT 10/26/2024 4:11 AM EDT us Semaj Mcnair III, MD POINT OF CARE TEST ORDERABLES Final Result Performing Organization Address [facility] Co de Phone Number LAB [address] [place] [address]. [address] * POC Sodium (10/26/2024 3:31 AM EDT) [facility] POC Sodium 138 136 - 146 mmol/L 10/26/2024 4:11 AM EDT LAB Blood, Arterial 10/26/2024 3 :31 AM EDT 10/26/2024 4:11 AM EDT us Semaj Mcnair III, MD POINT OF CARE TEST ORDERABLES Final Result Performing Organization Address City/[facility] Co de Phone Number [facility] [address] [facility]. [address] * (ABNORMAL) POC TCO2 (10/26/2024 3:31 AM EDT) POC TCO2, Arterial 19(L) 23 - 27 mmol/L 10/26/2024 4:11 AM EDT LAB Blood, Arterial 10/26/2024 3 :31 AM EDT 10/26/2024 4:11 AM EDT us Semaj Mcnair III, MD POINT OF CARE TEST ORDERABLES Final Result [facility] [address] [facility]. [address] * POC O2 SAT (10/26/2024 3:31 AM EDT) Pathologist [facility] POC O2 Saturation, Arterial 97 95 - 98 % 10/26/2024 4:11 AM EDT LAB Blood, Arterial 10/26/2024 3 :31 AM EDT 10/26/2024 4:11 AM EDT us Semaj Mcnair III, MD POINT OF CARE TEST ORDERABLES Final Result Performing Organization Address [facility] Co de Phone Number [facility] [address] [place] [address]. [address] * (ABNORMAL) POC Base Excess (10/26/2024 3:31 AM EDT) Pathologist [facility] POC Base Excess, Arterial -9(L) -2 - 3 mmol/L 10/26/2024 4:11 AM EDT LAB Blood, Arterial 10/26/2024 3 :31 AM EDT 10/26/2024 4:11 AM EDT us Semaj Mcnair III, MD POINT OF CARE TEST ORDERABLES Final Result [facility] [address] [facility]. [address] * (ABNORMAL) POC HCO3 (10/26/2024 3:31 AM EDT) POC HCO3, Arterial 18(L) 22 - 26 mmol/L 10/26/2024 4:11 AM EDT LAB Blood, Arterial 10/26/2024 3 :31 AM EDT 10/26/2024 4:11 AM EDT us Semaj Mcnair III, MD POINT OF CARE TEST ORDERABLES Final Result Performing Organization Address City/[facility]/ZIP Co de Phone Number [facility] [address] [place] [address]. [address] * (ABNORMAL) POC PO2 (10/26/2024 3:31 AM EDT) POC pO2, Arterial 104(H) 80 - 100 mm Hg 10/26/2024 4:11 AM EDT LAB Blood, Arterial 10/26/2024 3 :31 AM EDT 10/26/2024 4:11 AM EDT us Semaj Mcnair III, MD POINT OF CARE TEST ORDERABLES Final Result Performing Organization Address [facility] Co de Phone Number [facility] [address] [place] [address]. [address] * POC PCO2 (10/26/2024 3:31 AM EDT) POC pCO2, Arterial 42 35 - 45 mm Hg 10/26/2024 4:11 AM EDT LAB Blood, Arterial 10/26/2024 3 :31 AM EDT 10/26/2024 4:11 AM EDT us Semaj Mcnair III, MD POINT OF CARE TEST ORDERABLES Final Result Performing Organization Address City/[facility] Co de Phone Number [facility] [address] [place] [address]. [address] * (ABNORMAL) POC pH (10/26/2024 3:31 AM EDT) POC pH, Arterial 7.24(L) 7.35 - 7.45 10/26/2024 4:11 AM EDT LAB Blood, Arterial 10/26/2024 3 :31 AM EDT 10/26/2024 4:11 AM EDT Semaj Mcnair III, MD POINT OF CARE TEST ORDERABLES Final Result Performing Organization Address City/[facility]/ZIP Co de Phone Number [facility] [address] * (ABNORMAL) TEG-Global With Lysis (Baseline TEG with LY30, Will NOT Show Heparin Effect) (53:31 AM EDT) Citrated Kaolin Reaction Time (TEGLYSIS) 6.8 4.6 - 9.1 minutes 10/26/2024 5:02 AM EDT LAB Citrated Rapid Teg Maximum Amplitude (TEGLYSIS) <40.0(L) 52.0 - 70.0 mm 10/26/2024 5:02 AM EDT LAB Citrated Functional Fibrinogen Maximum Amplitude (TEGLYSIS) <4.0(L) 15.0 - 32.0 mm 10/26/2024 5:02 AM EDT LAB Citrated Kaolin Percent Lysis (TEGLYSIS) 1.4 0.0 - 2.6 % 10/26/2024 5:02 AM EDT LAB Whole Blood (Citrate) 10/26/2024 3:31 AM EDT 10/26/2024 3:40 AM EDT us Eber Quinones MD LAB BLOOD ORDERABLES Fin al Result LAB [address] [facility]. [address] * (ABNORMAL) CBC (10/26/2024 3:31 AM EDT) WBC 9.5 3.8 - 10.8 10E3/uL 10/26/2024 3:48 AM EDT LAB RBC 3.68(L) 4.20 - 5.80 10E6/uL 10/26/2024 3:48 AM EDT LAB Hemoglobin 11.5(L) 13.2 - 17.1 g/dL 10/26/2024 3:48 AM EDT LAB Hematocrit 33.0(L) 38.5 - 50.0 % 10/26/2024 3:48 AM EDT LAB MCV 89.6 80.0 - 100.0 fL 10/26/2024 3:48 AM EDT LAB MCH 31.1 27.0 - 33.0 pg 10/26/2024 3:48 AM EDT LAB MCHC 34.8 32.0 - 36.0 g/dL 10/26/2024 3:48 AM EDT LAB RDW 19.3(H) 11.0 - 15.0 % 10/26/2024 3:48 AM EDT LAB Platelets 67(L) 140 - 400 10E3/uL 10/26/2024 3:48 AM EDT LAB MPV 7.9 7.5 - 11.5 fL 10/26/2024 3:48 AM EDT LAB Whole Blood 10/26/2024 3:31 AM EDT 10/26/2024 3:40 AM EDT Eber Quinones MD LAB BLOOD ORDERABLES Fin al Result LAB [address] * (ABNORMAL) Protime-INR (10/26/2024 3:31 AM EDT) Protime 27.0(H) 12.1 - 15.1 seconds 10/26/2024 3:51 AM EDT LAB INR 2.4(H) 0.9 - 1.1 10/26/2024 3:51 AM EDT LAB Comment: RECOMMENDED THERAPEUTIC RANGES USING INR : Stable oral anticoagulant therapy: 2.0 - 3.0 Mechanical prosthetic heart valve: 2.5 - 3.5 Recurrent acute myocardial infarction: 2.5 - 3.5 Plasma 10/26/2024 3:31 AM EDT 10/26/2024 3:[address] [facility] Eber Quinones MD LAB BLOOD ORDERABLES Fin al Result Performing Organization Address City/[facility] Co de Phone Number LAB [address] * (ABNORMAL) Fibrinogen (10/26/2024 3:31 AM EDT) [facility] Signature Fibrinogen 104(L) 218 - 406 mg/dL 10/26/2024 3:56 AM EDT LAB Plasma 10/26/2024 3:31 AM EDT 10/26/2024 3:[address] [facility] Eber Quinones MD LAB BLOOD ORDERABLES Fin al Result Performing Organization Address [facility] Co de Phone Number LAB [address] * Transfuse Fresh Frozen Plasma (10/26/2024 3:16 AM EDT) Result [facility] Ben Blake MD NURSING TREATMENT ORDERABLES - BLOOD ADMIN Final Result * Transfuse Fresh Frozen Plasma (10/26/2024 3:15 AM EDT) Result [facility] Ben Blake MD NURSING TREATMENT ORDERABLES - BLOOD ADMIN Final Result * Transfuse RBC (10/26/2024 3:14 AM EDT) Result [facility] Ben Blake MD NURSING TREATMENT ORDERABLES - BLOOD ADMIN Final Result * Transfuse RBC (10/26/2024 3:14 AM EDT) Result [facility] Ben Blake MD NURSING TREATMENT ORDERABLES - BLOOD ADMIN Final Result * Transfuse RBC (10/26/2024 2:40 AM EDT) Result [facility] Bne Blake MD NURSING TREATMENT ORDERABLES - BLOOD ADMIN Final Result * Transfuse Fresh Frozen Plasma (10/26/2024 2:39 AM EDT) Result [facility] Ben Blake MD NURSING TREATMENT ORDERABLES - BLOOD ADMIN Final Result * Transfuse Fresh Frozen Plasma (10/26/2024 2:24 AM EDT) Result [facility] Ben Blake MD NURSING TREATMENT ORDERABLES - BLOOD ADMIN Final Result * Transfuse Fresh Frozen Plasma (10/26/2024 2:03 AM EDT) us Ben Blake MD NURSING TREATMENT ORDERABLES - BLOOD ADMIN Final Result * Transfuse RBC (10/26/2024 2:01 AM EDT) Result [facility] Ben Blake MD NURSING TREATMENT ORDERABLES - BLOOD ADMIN Final Result * Transfuse RBC (10/26/2024 1:45 AM EDT) Result [facility] Ben Blake MD NURSING TREATMENT ORDERABLES - BLOOD ADMIN Final Result * Transfuse RBC (10/26/2024 1:45 AM EDT) Result Replaced By [facility] us Ben Blake MD NURSING TREATMENT ORDERABLES - BLOOD ADMIN Final Result * (ABNORMAL) POC INR (10/26/2024 1:43 AM EDT) [facility] Prothrombin Time INR, POC 1.9(H) 0.8 - [...] EDT 10/27/2024 6:[address] [facility] Semaj Mcnair III, MD POINT OF CARE TEST ORDERABLES Final Result [facility] [address] [place] [address], [facility] * Transfuse Fresh Frozen Plasma (10/26/2024 1:41 AM EDT) Result Replaced By [facility] us Ben Blake MD NURSING TREATMENT ORDERABLES - BLOOD ADMIN Final Result * Transfuse RBC (10/26/2024 1:40 AM EDT) Ben Blake MD NURSING TREATMENT ORDERABLES - BLOOD ADMIN Final Result * POC Sample Type (10/26/2024 1:40 AM EDT) POC Sample Type Arterial 10/26/2024 2:32 AM EDT LAB Blood, Arterial 10/26/2024 1 :40 AM EDT 10/26/2024 2:32 AM EDT Semaj Mcnair III, MD POINT OF CARE TEST ORDERABLES Final Result LAB [address] * POC Anion [place] (10/26/2024 1:40 AM EDT) Pathologist [facility] POC Anion [place], Arterial 13 3 - 16 mmol/L 10/26/2024 2:32 AM EDT LAB Blood, Arterial 10/26/2024 1 :40 AM EDT 10/26/2024 2:32 AM EDT Semaj Mcnair III, MD POINT OF CARE TEST ORDERABLES Final Result Performing Organization Address City/[facility]/ZIP Co de Phone Number LAB [address] [facility]. [address] * POC Chloride (10/26/2024 1:40 AM EDT) Pathologist [facility] POC Chloride 104 98 - 110 mmol/L 10/26/2024 2:32 AM EDT LAB Blood, Arterial 10/26/2024 1 :40 AM EDT 10/26/2024 2:32 AM EDT Semaj Mcnair III, MD POINT OF CARE TEST ORDERABLES Final Result Performing Organization Address City/[facility]/ZIP Co de Phone Number LAB [address] * (ABNORMAL) POC Hemoglobin (10/26/2024 1:40 AM EDT) POC Hemoglobin 7.4(L) 14.0 - 18.0 g/dL 10/26/2024 2:32 AM EDT LAB Blood, Arterial 10/26/2024 1 :40 AM EDT 10/26/2024 2:32 AM EDT us Semaj Mcnair III, MD POINT OF CARE TEST ORDERABLES Final Result LAB [address] * (ABNORMAL) POC hematocrit (10/26/2024 1:40 AM EDT) [facility] POC Hematocrit 22.0(L) 40 - 52 % 10/26/2024 2:32 AM EDT LAB Blood, Arterial 10/26/2024 1 :40 AM EDT 10/26/2024 2:32 AM EDT us Semaj Mcnair III, MD POINT OF CARE TEST ORDERABLES Final Result Performing Organization Address [facility] Co de Phone Number [facility] [address] [facility]. [address] * (ABNORMAL) POC Lactate (10/26/2024 1:40 AM EDT) Pathologist [facility] POC Lactate 2.30(H) 0.50 - 2.20 mmol/L 10/26/2024 2:32 AM EDT LAB Blood, Arterial 10/26/2024 1 :40 AM EDT 10/26/2024 2:32 AM EDT us Semaj Mcnair III, MD POINT OF CARE TEST ORDERABLES Final Result Performing Organization Address City/[facility] Co de Phone Number [facility] [address] [facility]. [address] * (ABNORMAL) POC Glucose (10/26/2024 1:40 AM EDT) POC Glucose, Arterial 116(H) 70 - 100 mg/dL 10/26/2024 2:32 AM EDT LAB Blood, Arterial 10/26/2024 1 :40 AM EDT 10/26/2024 2:32 AM EDT us Semaj Mcnair III, MD POINT OF CARE TEST ORDERABLES Final Result Performing Organization Address City/[facility] Co de Phone Number [facility] [address] [place] [address]. [address] * (ABNORMAL) POC Ionized Calcium (10/26/2024 1:40 AM EDT) Pathologist [facility] POC Ionized Calcium 4.10(L) 4.50 - 5.30 mg/dL 10/26/2024 2:32 AM EDT LAB Blood, Arterial 10/26/2024 1 :40 AM EDT 10/26/2024 2:32 AM EDT us Semaj Mcnair III, MD POINT OF CARE TEST ORDERABLES Final Result Performing Organization Address [facility] de Phone Number [facility] [address] [place] [address]. [address] * (ABNORMAL) POC Potassium (10/26/2024 1:40 AM EDT) Pathologist [facility] POC Potassium 2.6(LL) 3.5 - 5.3 mmol/L 10/26/2024 2:32 AM EDT LAB Blood, Arterial 10/26/2024 1 :40 AM EDT 10/26/2024 2:32 AM EDT us Semaj Mcnair III, MD POINT OF CARE TEST ORDERABLES Final Result Performing Organization Address [facility] Co de Phone Number [facility] [address] [place] [address]. [address] * (ABNORMAL) POC Sodium (10/26/2024 1:40 AM EDT) POC Sodium 135(L) 136 - 146 mmol/L 10/26/2024 2:32 AM EDT LAB Blood, Arterial 10/26/2024 1 :40 AM EDT 10/26/2024 2:32 AM EDT us Semaj Mcnair III, MD POINT OF CARE TEST ORDERABLES Final Result Performing Organization Address City/[facility]/ZIP Co de Phone Number [facility] [address] [place] [address]. [address] * (ABNORMAL) POC TCO2 (10/26/2024 1:40 AM EDT) POC TCO2, Arterial 19(L) 23 - 27 mmol/L 10/26/2024 2:32 AM EDT LAB Blood, Arterial 10/26/2024 1 :40 AM EDT 10/26/2024 2:32 AM EDT us Semaj Mcnair III, MD POINT OF CARE TEST ORDERABLES Final Result Performing Organization Address [facility] Co de Phone Number [facility] [address] [place] [address]. [address] * (ABNORMAL) POC O2 SAT (10/26/2024 1:40 AM EDT) POC O2 Saturation, Arterial 99(H) 95 - 98 % 10/26/2024 2:32 AM EDT LAB Blood, Arterial 10/26/2024 1 :40 AM EDT 10/26/2024 2:32 AM EDT us Semaj Mcnair III, MD POINT OF CARE TEST ORDERABLES Final Result Performing Organization Address City/[facility] Co de Phone Number [facility] [address] [facility]. [address] * (ABNORMAL) POC Base Excess (10/26/2024 1:40 AM EDT) POC Base Excess, Arterial -7(L) -2 - 3 mmol/L 10/26/2024 2:32 AM EDT LAB Blood, Arterial 10/26/2024 1 :40 AM EDT 10/26/2024 2:32 AM EDT us Semaj Mcnair III, MD POINT OF CARE TEST ORDERABLES Final Result Performing Organization Address City/[facility]/ZIP Co de Phone Number [facility] [address] [place] [address]. [address] * (ABNORMAL) POC HCO3 (10/26/2024 1:40 AM EDT) POC HCO3, Arterial 18(L) 22 - 26 mmol/L 10/26/2024 2:32 AM EDT LAB Blood, Arterial 10/26/2024 1 :40 AM EDT 10/26/2024 2:32 AM EDT us Semaj Mcnair III, MD POINT OF CARE TEST ORDERABLES Final Result Performing Organization Address [facility] Co de Phone Number [facility] [address] [place] [address]. [address] * (ABNORMAL) POC PO2 (10/26/2024 1:40 AM EDT) POC pO2, Arterial 145(H) 80 - 100 mm Hg 10/26/2024 2:32 AM EDT LAB Blood, Arterial 10/26/2024 1 :40 AM EDT 10/26/2024 2:32 AM EDT us Semaj Mcnair III, MD POINT OF CARE TEST ORDERABLES Final Result Performing Organization Address [facility] Co de Phone Number [facility] [address] [place] [address]. [address] * (ABNORMAL) POC PCO2 (10/26/2024 1:40 AM EDT) POC pCO2, Arterial 33(L) 35 - 45 mm Hg 10/26/2024 2:32 AM EDT LAB Blood, Arterial 10/26/2024 1 :40 AM EDT 10/26/2024 2:32 AM EDT us Semaj Mcnair III, MD POINT OF CARE TEST ORDERABLES Final Result Performing Organization Address City/[facility] Co de Phone Number LAB [address] [place] [address]. [address] * POC pH (10/26/2024 1:40 AM EDT) POC pH, Arterial 7.35 7.35 - 7.45 10/26/2024 2:32 AM EDT LAB Blood, Arterial 10/26/2024 1 :40 AM EDT 10/26/2024 2:32 AM EDT us Semaj Mcnair III, MD POINT OF CARE TEST ORDERABLES Final Result Performing Organization Address [facility] Co de Phone Number [facility] [address] [facility]. [address] * Transfuse Fresh Frozen Plasma (10/26/2024 1:20 AM EDT) us Ben Blake MD NURSING TREATMENT ORDERABLES - BLOOD ADMIN Final Result * Transfuse RBC (10/26/2024 12:56 AM EDT) us Ben Blake MD NURSING TREATMENT ORDERABLES - BLOOD ADMIN Final Result * (ABNORMAL) POC INR (10/26/2024 12:41 AM EDT) Prothrombin Time INR, POC 2.0(H) 0.8 - 1.4 10/27/2024 6:51 AM EDT LAB Comment: Test results may vary using [...] TEST ORDERABLES Final Result Performing Organization Address City/[facility] Co de Phone Number LAB [address] [facility]. [address] * POC Sample Type (10/26/2024 12:39 AM EDT) POC Sample Type Arterial 10/26/2024 1:38 AM EDT LAB Blood, Arterial 10/26/2024 1 2:39 AM EDT 10/26/2024 1:38 AM EDT us Semaj Mcnair III, MD POINT OF CARE TEST ORDERABLES Final Result Performing Organization Address [facility] Co de Phone Number LAB [address] [facility]. [address] * POC Anion Gap (10/26/2024 12:39 AM EDT) POC Anion Gap, Arterial 13 3 - 16 mmol/L 10/26/2024 1:38 AM EDT LAB Blood, Arterial 10/26/2024 1 2:39 AM EDT 10/26/2024 1:38 AM EDT Semaj Mcnair III, MD POINT OF CARE TEST ORDERABLES Final Result Performing Organization Address City/[facility] Co de Phone Number LAB [address] [facility]. [address] * POC Chloride (10/26/2024 12:39 AM EDT) POC Chloride 103 98 - 110 mmol/L 10/26/2024 1:38 AM EDT LAB Blood, Arterial 10/26/2024 1 2:39 AM EDT 10/26/2024 1:38 AM EDT us Semaj Mcnair III, MD POINT OF CARE TEST ORDERABLES Final Result Performing Organization Address [facility] Co de Phone Number [facility] [address] [facility]. [address] * (ABNORMAL) POC Hemoglobin (10/26/2024 12:39 AM EDT) POC Hemoglobin 7.9(L) 14.0 - 18.0 g/dL 10/26/2024 1:38 AM EDT LAB Blood, Arterial 10/26/2024 1 2:39 AM EDT 10/26/2024 1:38 AM EDT us Semaj Mcnair III, MD POINT OF CARE TEST ORDERABLES Final Result Performing Organization Address [facility] Co de Phone Number LAB [address] [facility]. [address] * (ABNORMAL) POC hematocrit (10/26/2024 12:39 AM EDT) POC Hematocrit 23.0(L) 40 - 52 % 10/26/2024 1:38 AM EDT LAB Blood, Arterial 10/26/2024 1 2:39 AM EDT 10/26/2024 1:38 AM EDT us Semaj Mcnair III, MD POINT OF CARE TEST ORDERABLES Final Result Performing Organization Address City/[facility] Co de Phone Number LAB [address] [facility]. [address] * POC Lactate (10/26/2024 12:39 AM EDT) POC Lactate 1.39 0.50 - 2.20 mmol/L 10/26/2024 1:38 AM EDT LAB Blood, Arterial 10/26/2024 1 2:39 AM EDT 10/26/2024 1:38 AM EDT us Semaj Mcnair III, MD POINT OF CARE TEST ORDERABLES Final Result Performing Organization Address [facility] Co de Phone Number [facility] [address] [facility]. [address] * (ABNORMAL) POC Glucose (10/26/2024 12:39 AM EDT) POC Glucose, Arterial 116(H) 70 - 100 mg/dL 10/26/2024 1:38 AM EDT LAB Blood, Arterial 10/26/2024 1 2:39 AM EDT 10/26/2024 1:38 AM EDT Semaj Mcnair III, MD POINT OF CARE TEST ORDERABLES Final Result Performing Organization Address [facility] Co de Phone Number [facility] [address] [place] [address]. [address] * (ABNORMAL) POC Ionized Calcium (10/26/2024 12:39 AM EDT) POC Ionized Calcium 4.30(L) 4.50 - 5.30 mg/dL 10/26/2024 1:38 AM EDT LAB Blood, Arterial 10/26/2024 1 2:39 AM EDT 10/26/2024 1:38 AM EDT Semaj Mcnair III, MD POINT OF CARE TEST ORDERABLES Final Result Performing Organization Address [facility] Co de Phone Number [facility] [address] [facility]. [address] * (ABNORMAL) POC Potassium (10/26/2024 12:39 AM EDT) POC Potassium 2.4(LL) 3.5 - 5.3 mmol/L 10/26/2024 1:38 AM EDT LAB Blood, Arterial 10/26/2024 1 2:39 AM EDT 10/26/2024 1:38 AM EDT us Semaj Mcnair III, MD POINT OF CARE TEST ORDERABLES Final Result Performing Organization Address City/[facility] Co de Phone Number [facility] [address] * POC Sodium (10/26/2024 12:39 AM EDT) POC Sodium 136 136 - 146 mmol/L 10/26/2024 1:38 AM EDT LAB Blood, Arterial 10/26/2024 1 2:39 AM EDT 10/26/2024 1:38 AM EDT us Semaj Mcnair III, MD POINT OF CARE TEST ORDERABLES Final Result Performing Organization Address [facility] Co de Phone Number [facility] [address] * (ABNORMAL) POC TCO2 (10/26/2024 12:39 AM EDT) POC TCO2, Arterial 21(L) 23 - 27 mmol/L 10/26/2024 1:38 AM EDT LAB Blood, Arterial 10/26/2024 1 2:39 AM EDT 10/26/2024 1:38 AM EDT us Semaj Mcnair III, MD POINT OF CARE TEST ORDERABLES Final Result Performing Organization Address City/[facility] Co de Phone Number LAB [address] * POC O2 SAT (10/26/2024 12:39 AM EDT) POC O2 Saturation, Arterial 98 95 - 98 % 10/26/2024 1:38 AM EDT LAB Blood, Arterial 10/26/2024 1 2:39 AM EDT 10/26/2024 1:38 AM EDT us Semaj Mcnair III, MD POINT OF CARE TEST ORDERABLES Final Result Performing Organization Address City/[facility] Co de Phone Number [facility] [address] * (ABNORMAL) POC Base Excess (10/26/2024 12:39 AM EDT) POC Base Excess, Arterial -7(L) -2 - 3 mmol/L 10/26/2024 1:38 AM EDT LAB Blood, Arterial 10/26/2024 1 2:39 AM EDT 10/26/2024 1:38 AM EDT us Semaj Mcnair III, MD POINT OF CARE TEST ORDERABLES Final Result Performing Organization Address [facility] Co de Phone Number [facility] [address] * (ABNORMAL) POC HCO3 (10/26/2024 12:39 AM EDT) POC HCO3, Arterial 20(L) 22 - 26 mmol/L 10/26/2024 1:38 AM EDT LAB Blood, Arterial 10/26/2024 1 2:39 AM EDT 10/26/2024 1:38 AM EDT us Semaj Mcnair III, MD POINT OF CARE TEST ORDERABLES Final Result Performing Organization Address [facility] Co de Phone Number [facility] [address] * (ABNORMAL) POC PO2 (10/26/2024 12:39 AM EDT) POC pO2, Arterial 117(H) 80 - 100 mm Hg 10/26/2024 1:38 AM EDT LAB Blood, Arterial 10/26/2024 1 2:39 AM EDT 10/26/2024 1:38 AM EDT Semaj Mcnair III, MD POINT OF CARE TEST ORDERABLES Final Result Performing Organization Address [facility] Co de Phone Number [facility] [address] [facility]. [address] * (ABNORMAL) POC PCO2 (10/26/2024 12:39 AM EDT) POC pCO2, Arterial 46(H) 35 - 45 mm Hg 10/26/2024 1:38 AM EDT LAB Blood, Arterial 10/26/2024 1 2:39 AM EDT 10/26/2024 1:38 AM EDT Semaj Mcnair III, MD POINT OF CARE TEST ORDERABLES Final Result Performing Organization Address [facility] Co de Phone Number [facility] [address] [facility]. [address] * (ABNORMAL) POC pH (10/26/2024 12:39 AM EDT) POC pH, Arterial 7.24(L) 7.35 - 7.45 10/26/2024 1:38 AM EDT LAB Blood, Arterial 10/26/2024 1 2:39 AM EDT 10/26/2024 1:[address] [facility] Semaj Mcnair III, MD POINT OF CARE TEST ORDERABLES Final Result Performing Organization Address [facility] Co de Phone Number LAB [address] * Transfuse Platelets (10/26/2024 12:37 AM EDT) Result [facility] Ben Blake MD NURSING TREATMENT ORDERABLES - BLOOD ADMIN Final Result * Transfuse RBC (10/26/2024 12:31 AM EDT) Result Replaced By [facility] us Ben Blake MD NURSING TREATMENT ORDERABLES [...] AM EDT) Gram Stain Result Cytospin Results: LAB Gram Stain Result Polymorphonuclear Leukocytes Seen; LAB Gram Stain Result No Organisms Seen; LAB Culture Result No Growth After 3 Days LAB Surgical Swab ABDOMEN / Unknown 12:03 AM EDT Comment:2.) Ascites Anaerobhic culture Fungus culture Routine culture plus stain Narrative LAB - 10/28/2024 9:38 PM EDT 2.) Ascites Anaerobhic culture Fungus culture Routine culture plus stain 2.) Ascites Semaj Mcnair III, MD MICROBIOLOGY - [facility] [place] ORDERABLES Final Result Performing Organization Address City/State/[facility] Co de Phone Number LAB [address] * Surgical Pathology Exam (10/26/2024 12:00 AM EDT) 10/26/2024 10/27/2024 Narrative [facility] - 10/26/2024 12:00 AM EDT CASE: [id number] PATIENT: BLAIR GILBERT Clinical History: Liver - kidney transplant Pre-Operative Diagnosis: Alcoholic cirrhosis of liver Post-Operative Diagnosis: Alcoholic cirrhosis of liver Specimen(s) Submitted: A. bad river band liver CPT Code(s): 53352 X 1; 10943 X 5 Additional Information: FINAL DIAGNOSIS: A. 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 - Negative for neoplasm. - Increased hepatocellular iron deposition (3+; Modified Scheuer). Gall bladder: -Intramucosal and submucosal vascular congestion and hemorrhage. - Negative for dysplasia or malignancy. Gross Description: Received in formalin, labeled Blair Gilbert and bad river band liver , is a 2338-gram, hepatectomy specimen [...] discrete masses or other lesions are identified. Brim Edge Trimmer sections are submitted in cassettes [id number] as follows: A1: Hilar margins, en face. [...] Pathologist signing this report is located at [facility], [address] [place] [address], [facility], , CLIA ID: [id number] us Semaj Mcnair III, MD PATHOLOGY/CYTOLOGY ORDERABLES Final Result Performing Organization Address [facility]/ZIP Co de Phone Number [facility] * Transfuse [...] TEST ORDERABLES Final Result Performing Organization Address City/[facility]/ZIP Co de Phone Number LAB [facility] * POC Sample Type (10/25/2024 11:40 PM EDT) POC Sample Type Arterial 10/25/2024 11:57 PM EDT LAB Blood, Arterial 10/25/2024 1 1:40 PM EDT 10/25/2024 11:57 PM EDT us Semaj Mcnair III, MD POINT OF CARE TEST ORDERABLES Final Result Performing Organization Address City/[facility] Co de Phone Number LAB [address] * POC Anion Gap (10/25/2024 11:40 PM EDT) POC Anion Gap, Arterial 13 3 - 16 mmol/L 10/25/2024 11:57 PM EDT LAB Blood, Arterial 10/25/2024 1 1:40 PM EDT 10/25/2024 11:57 PM EDT Semaj Mcnair III, MD POINT OF CARE TEST ORDERABLES Final Result Performing Organization Address [facility] Co de Phone Number LAB [address] * POC Chloride (10/25/2024 11:40 PM EDT) POC Chloride 102 98 - 110 mmol/L 10/25/2024 11:57 PM EDT LAB Blood, Arterial 10/25/2024 1 1:40 PM EDT 10/25/2024 11:57 PM EDT us Semaj Mcnair III, MD POINT OF CARE TEST ORDERABLES Final Result Performing Organization Address City/[facility] Co de Phone Number LAB [address] * (ABNORMAL) POC Hemoglobin (10/25/2024 11:40 PM EDT) POC Hemoglobin 6.6(L) 14.0 - 18.0 g/dL 10/25/2024 11:57 PM EDT LAB Blood, Arterial 10/25/2024 1 1:40 PM EDT 10/25/2024 11:57 PM EDT us Semaj Mcnair III, MD POINT OF CARE TEST ORDERABLES Final Result Performing Organization Address City/[facility] Co de Phone Number [facility] [address] [place] [address]. [address] * (ABNORMAL) POC hematocrit (10/25/2024 11:40 PM EDT) POC Hematocrit 19.0(L) 40 - 52 % 10/25/2024 11:57 PM EDT LAB Blood, Arterial 10/25/2024 1 1:40 PM EDT 10/25/2024 11:57 PM EDT us Semaj Mcnair III, MD POINT OF CARE TEST ORDERABLES Final Result Performing Organization Address [facility] Co de Phone Number [address] * POC Lactate (10/25/2024 11:40 PM EDT) Pathologist [facility] POC Lactate 1.36 0.50 - 2.20 mmol/L 10/25/2024 11:57 PM EDT LAB Blood, Arterial 10/25/2024 1 1:40 PM EDT 10/25/2024 11:57 PM EDT us Semaj Mcnair III, MD POINT OF CARE TEST ORDERABLES Final Result Performing Organization Address City/[facility] Co de Phone Number [address] [facility]. [address] * (ABNORMAL) POC Glucose (10/25/2024 11:40 PM EDT) POC Glucose, Arterial 101(H) 70 - 100 mg/dL 10/25/2024 11:57 PM EDT LAB Blood, Arterial 10/25/2024 1 1:40 PM EDT 10/25/2024 11:57 PM EDT us Semaj Mcnair III, MD POINT OF CARE TEST ORDERABLES Final Result Performing Organization Address City/[facility]/ZIP Co de Phone Number [facility] [address] [place] [address]. [address] * POC Ionized Calcium (10/25/2024 11:40 PM EDT) POC Ionized Calcium 4.50 4.50 - 5.30 mg/dL 10/25/2024 11:57 PM EDT LAB Blood, Arterial 10/25/2024 1 1:40 PM EDT 10/25/2024 11:57 PM EDT Semaj Mcnair III, MD POINT OF CARE TEST ORDERABLES Final Result Performing Organization Address [facility] Co de Phone Number [facility] [address] [place] [address]. [address] * (ABNORMAL) POC Potassium (10/25/2024 11:40 PM EDT) Pathologist [facility] POC Potassium 1.9(LL) 3.5 - 5.3 mmol/L 10/25/2024 11:57 PM EDT LAB Blood, Arterial 10/25/2024 1 1:40 PM EDT 10/25/2024 11:[address] [facility] Semaj Mcnair III, MD POINT OF CARE TEST ORDERABLES Final Result Performing Organization Address City/[facility]/ZIP Co de Phone Number LAB [address] [place] [address]. [address] * (ABNORMAL) POC Sodium (10/25/2024 11:40 PM EDT) Pathologist [facility] POC Sodium 135(L) 136 - 146 mmol/L 10/25/2024 11:57 PM EDT LAB Blood, Arterial 10/25/2024 1 1:40 PM EDT 10/25/2024 11:57 PM EDT us Semaj Mcnair III, MD POINT OF CARE TEST ORDERABLES Final Result Performing Organization Address City/[facility]/ZIP Co de Phone Number LAB [address] [facility]. [address] * (ABNORMAL) POC TCO2 (10/25/2024 11:40 PM EDT) POC TCO2, Arterial 21(L) 23 - 27 mmol/L 10/25/2024 11:57 PM EDT LAB Blood, Arterial 10/25/2024 1 1:40 PM EDT 10/25/2024 11:57 PM EDT Semaj Mcnair III, MD POINT OF CARE TEST ORDERABLES Final Result Performing Organization Address [facility] Co de Phone Number [facility] [address] [facility]. [address] * POC O2 SAT (10/25/2024 11:40 PM EDT) POC O2 Saturation, Arterial 98 95 - 98 % 10/25/2024 11:57 PM EDT LAB Blood, Arterial 10/25/2024 1 1:40 PM EDT 10/25/2024 11:57 PM EDT us Semaj Mcnair III, MD POINT OF CARE TEST ORDERABLES Final Result Performing Organization Address City/[facility]/ZIP Co de Phone Number LAB [address] [facility]. [address] * (ABNORMAL) POC Base Excess (10/25/2024 11:40 PM EDT) POC Base Excess, Arterial -6(L) -2 - 3 mmol/L 10/25/2024 11:57 PM EDT LAB Blood, Arterial 10/25/2024 1 1:40 PM EDT 10/25/2024 11:57 PM EDT us Semaj Mcnair III, MD POINT OF CARE TEST ORDERABLES Final Result Performing Organization Address [facility] Co de Phone Number LAB [address] [facility]. [address] * (ABNORMAL) POC HCO3 (10/25/2024 11:40 PM EDT) POC HCO3, Arterial 20(L) 22 - 26 mmol/L 10/25/2024 11:57 PM EDT LAB Blood, Arterial 10/25/2024 1 1:40 PM EDT 10/25/2024 11:57 PM EDT Semaj Mcnair III, MD POINT OF CARE TEST ORDERABLES Final Result Performing Organization Address [facility] Co de Phone Number LAB [address] [facility]. [address] * (ABNORMAL) POC PO2 (10/25/2024 11:40 PM EDT) POC pO2, Arterial 107(H) 80 - 100 mm Hg 10/25/2024 11:57 PM EDT LAB Blood, Arterial 10/25/2024 1 1:40 PM EDT 10/25/2024 11:57 PM EDT Semaj Mcnair III, MD POINT OF CARE TEST ORDERABLES Final Result Performing Organization Address [facility] Co de Phone Number LAB [phone] [facility]. [address] * POC PCO2 (10/25/2024 11:40 PM EDT) POC pCO2, Arterial 41 35 - 45 mm Hg 10/25/2024 11:57 PM EDT LAB Blood, Arterial 10/25/2024 1 1:40 PM EDT 10/25/2024 11:57 PM EDT Semaj Mcnair III, MD POINT OF CARE TEST ORDERABLES Final Result Performing Organization Address City/State/[facility] Co de Phone Number LAB [address]. [address] * (ABNORMAL) POC pH (10/25/2024 11:40 PM EDT) POC pH, Arterial 7.29(L) 7.35 - 7.45 10/25/2024 11:57 PM EDT LAB Blood, Arterial 10/25/2024 1 1:40 PM EDT 10/25/2024 11:57 PM EDT Semaj Mcnair III, MD POINT OF CARE TEST ORDERABLES Final Result Performing Organization Address [facility] Co de Phone Number LAB [address]. [address] * Urine culture (10/25/2024 11:08 PM EDT) Culture Result <1,000 cfu/mL LAB Culture Result Skin/Urogeni rony Mckayla. No Further Workup. LAB Newly Placed Berkowitz Urine URINE SPECIMEN / Unknown 10/25/2024 11:08 PM EDT Comment:urine culture Narrative LAB - 10/28/2024 9:59 AM EDT urine culture urine culture Semaj Mcnair III, MD MICROBIOLOGY - GENE RAL ORDERABLES Final Result Performing Organization Address [facility] Co de Phone Number LAB Aleisha Chish[place]m. [address] * X-ray Portable Chest (10/25/2024 10:19 [...] 10/25/2024 10:38 PM EDT Leandra Og MD [facility] ORDERABLES Final Result * Lactic Acid, STAT (10/25/2024 10:17 PM EDT) Lactate 1.6 0.5 - 2.2 mmol/L 10/25/2024 10:39 PM EDT LAB Plasma 10/25/2024 10:1 7 PM EDT 10/25/2024 10:17 PM EDT us Ben Blake MD LAB BLOOD ORDERABLES Final Re sult LAB [address] * (ABNORMAL) Ferritin (10/25/2024 10:17 PM EDT) Ferritin 623.2(H) 23.9 - 336.2 ng/mL 10/25/2024 11:02 PM EDT LAB Serum 10/25/2024 10:1 7 PM EDT 10/25/2024 10:17 PM EDT Leandra Og MD LAB BLOOD ORDERABLES F inal Result Performing Organization Address [facility]/ZIP Co de Phone Number LAB [address] [facility]. [address] * Iron Studies (Iron + TIBC) (10/25/2024 10:17 PM EDT) Iron 128 50 - 212 ug/dL 10/25/2024 10:44 PM EDT LAB % Iron Saturation SEE COMMENT 15.0 - 55.0 % 10/25/2024 10:44 PM EDT LAB Comment:Unable to calculate result because contributing result outside reportable range.. TIBC SEE COMMENT 261 - 462 ug/dL 10/25/2024 10:44 PM EDT LAB Comment:Unable to calculate result because contributing result outside reportable range.. Serum 10/25/2024 10:1 7 PM EDT 10/25/2024 10:17 PM EDT Leandra Og MD LAB BLOOD ORDERABLES F inal Result LAB [address] [facility]. [address] * PTH (10/25/2024 10:17 PM EDT) PTH 36.0 12.0 - 88.0 pg/mL 10/25/2024 11:01 PM EDT LAB Serum 10/25/2024 10:1 7 PM EDT 10/25/2024 10:17 PM EDT us Leandra Og MD LAB BLOOD ORDERABLES F inal Result LAB [address] [facility]. [address] * HIV 1+2 Antibody/Antigen with Reflex (10/25/2024 10:17 PM EDT) HIV 1+2 AB/AGN Nonreactive Nonreactive 10/25/2024 11:03 PM EDT LAB Serum 10/25/2024 10:1 7 PM EDT 10/25/2024 10:16 PM EDT Narrative LAB - 10/25/2024 11:03 PM EDT \HIVRNR us Leandra Og MD LAB BLOOD ORDERABLES F inal Result Performing Organization Address City/[facility]/ZIP Co de Phone Number LAB [address] [facility]. [address] * Hepatitis B Core Antibody (10/25/2024 10:17 PM EDT) Hep B Core Total Ab Nonreactive Nonreactive 10/25/2024 11:07 PM EDT LAB Comment:Health Department no tified in accordance [...] MD LAB BLOOD ORDERABLES F inal Result LAB [address] [facility]. [address] * Hepatitis C Antibody (10/25/2024 10:17 PM EDT) HCV Ab Nonreactive Nonreactive 10/25/2024 11:16 PM EDT LAB Comment:Health Department no tified in accordance with reportable infectious disease guidelines. Serum 10/25/2024 10:1 7 PM EDT 10/25/2024 10:17 PM EDT Narrative LAB - 10/25/2024 11:16 PM EDT Antibodies to HCV not detected; does not exclude the possibility of exposure to HCV. Leandra Og MD LAB BLOOD ORDERABLES F inal Result Performing Organization Address City/[facility]/ZIP Co de Phone Number LAB [address] [place] [address]. [address] * (ABNORMAL) Hepatitis B Surface Antibody, Quantitati (10/25/2024 10:17 PM EDT) HBSAB NUMBER 10.70(H) 0.00 - 9.99 mIU/mL 10/25/2024 11:52 PM EDT LAB Hep B S Ab Equivocal (A) Nonreactive 10/25/2024 11:52 PM EDT LAB Serum 10/25/2024 10:1 7 PM EDT 10/25/2024 10:17 PM EDT Leandra Og MD LAB BLOOD ORDERABLES F inal Result LAB [address] [facility]. [address] * Hepatitis B surface antigen (10/25/2024 10:17 PM EDT) Hep B Surface Ag Nonreactive Nonreactive 10/25/2024 11:12 PM EDT LAB Comment:Health Department no tified in accordance with reportable infectious disease guidelines. Serum 10/25/2024 10:1 7 PM EDT 10/25/2024 10:17 PM EDT Narrative HEALTH LAB - 10/25/2024 11:12 PM EDT Specimen is considered negative for HBsAg. us Leandra Og MD LAB BLOOD ORDERABLES F inal Result Performing Organization Address City/[facility] Co de Phone Number LAB [address] * Hepatitis A Antibody Total (10/25/2024 10:17 PM EDT) Pathologist [facility] Anti-HAV Total (IgG + IgM) Nonreactive 10/25/2024 11:13 PM EDT LAB Serum 10/25/2024 10:1 7 PM EDT 10/25/2024 10:17 PM EDT [facility] LAB - 10/25/2024 11:13 PM EDT HAV antibodies not detected us Leandra Og MD LAB BLOOD ORDERABLES F inal Result Performing Organization Address [facility] de Phone Number LAB [address] [facility]. [address] * (ABNORMAL) Hepatic Function Panel (10/25/2024 10:17 PM EDT) Pathologist [facility] Total Bilirubin 9.1(H) 0.0 - 1.5 mg/dL 10/25/2024 10:47 PM EDT LAB Bilirubin, Direct 4.58(H) 0.00 - 0.40 mg/dL 10/25/2024 10:47 PM EDT LAB AST 51(H) 13 - 39 U/L 10/25/2024 10:47 PM EDT LAB ALT 23 7 - 52 U/L 10/25/2024 10:47 PM EDT LAB Alkaline Phosphatase 144(H) 36 - 125 U/L 10/25/2024 10:47 PM EDT LAB Total Protein 5.5(L) 6.4 - 8.9 g/dL 10/25/2024 10:47 PM EDT LAB Albumin 3.5 3.5 - 5.7 g/dL 10/25/2024 10:47 PM EDT LAB Bilirubin, Indirect 4.52(H) 0.00 - 1.10 mg/dL 10/25/2024 10:47 PM EDT LAB Plasma 10/25/2024 10:1 7 PM EDT 10/25/2024 10:17 PM EDT us Leandra Og MD LAB BLOOD ORDERABLES F inal Result LAB [address] [place], [place] [address] * (ABNORMAL) Renal Function Panel w/EGFR (10/25/2024 10:17 PM EDT) Sodium 137 133 - 146 mmol/L 10/25/2024 10:47 PM EDT LAB Potassium 2.1(LL) 3.5 - 5.3 mmol/L 10/25/2024 10:47 PM EDT LAB Comment:Critical Result K:2. 1 Called to and read back by: ALICIA CARCAMO RN at: 10/25/2024 22:47:45 by:NANCY Chloride 100 98 - 110 mmol/L 10/25/2024 10:47 PM EDT LAB CO2 20(L) 21 - 33 mmol/L 10/25/2024 10:47 PM EDT LAB Anion Gap 17(H) 3 - 16 mmol/L 10/25/2024 10:47 PM EDT LAB BUN 74(H) 7 - 25 mg/dL 10/25/2024 10:47 PM EDT LAB Creatinine 3.87(H) 0.60 - 1.30 mg/dL 10/25/2024 10:47 PM EDT LAB Glucose 114(H) 70 - 100 mg/dL 10/25/2024 10:47 PM EDT LAB Calcium 9.3 8.6 - 10.3 mg/dL 10/25/2024 10:47 PM EDT LAB Phosphorus 5.9(H) 2.1 - 4.7 mg/dL 10/25/2024 10:47 PM EDT LAB Albumin 3.5 3.5 - 5.7 g/dL 10/25/2024 10:47 PM EDT LAB Osmolality, Calculated 307(H) 278 - 305 mOsm/kg 10/25/2024 10:47 PM EDT LAB EGFR 19 10/25/2024 10:47 PM EDT LAB Comment:As of 2021, the estimated GFR [...] ORDERABLES F inal Result Performing Organization Address [facility]/ZIP Co de Phone Number LAB [address] [facility]. [address] * (ABNORMAL) APTT, NO ANTICOAGULANT (10/25/2024 10:17 PM EDT) aPTT 41.7(H) 25.5 - 35.0 seconds 10/25/2024 10:36 PM EDT LAB Plasma 10/25/2024 10:1 7 PM EDT 10/25/2024 10:17 PM EDT Leandra Og MD LAB BLOOD ORDERABLES F inal Result Performing Organization Address City/[facility]/ZIP Co de Phone Number LAB [address] [facility]. [address] * (ABNORMAL) Protime-INR (10/25/2024 10:17 PM [...] MD LAB BLOOD ORDERABLES F inal Result LAB [address] * (ABNORMAL) Differential (10/25/2024 10:17 PM EDT) Pathologist [facility] Differential Comments See Note 10/25/2024 10:54 PM EDT LAB Comment: _Platelets Appear Decreased _Platelet Morphology Normal Scan Result PERFORMED 10/25/2024 10:54 PM EDT LAB Neutrophils Relative 79.8 40.0 - 80.0 % 10/25/2024 10:54 PM EDT LAB Lymphocytes Relative 9.6(L) 15.0 - 45.0 % 10/25/2024 10:54 PM EDT LAB Monocytes Relative 8.9 0.0 - 12.0 % 10/25/2024 10:54 PM EDT LAB Eosinophils Relative 1.3 0.0 - 8.0 % 10/25/2024 10:54 PM EDT LAB Basophils Relative 0.4 0.0 - 1.0 % 10/25/2024 10:54 PM EDT LAB nRBC 0 0 - 0 /100 WBC 10/25/2024 10:54 PM EDT LAB Neutrophils Absolute 4,948 1,520 - 8,640 /uL 10/25/2024 10:54 PM EDT LAB Lymphocytes Absolute 595 570 - 4,860 /uL 10/25/2024 10:54 PM EDT LAB Monocytes Absolute 552 0 - 1,296 /uL 10/25/2024 10:54 PM EDT LAB Eosinophils Absolute 81 0 - 864 /uL 10/25/2024 10:54 PM EDT LAB Basophils Absolute 25 0 - 108 /uL 10/25/2024 10:54 PM EDT LAB PLT Morphology Platelet morphology appears normal 10/25/2024 10:54 PM EDT LAB Whole Blood 10/25/2024 10:1 7 PM EDT 10/25/2024 10:17 PM EDT us Leandra Og MD LAB BLOOD ORDERABLES F inal Result LAB [address] * (ABNORMAL) CBC (10/25/2024 10:17 PM EDT) WBC 6.2 3.8 - 10.8 10E3/uL 10/25/2024 10:54 PM EDT LAB RBC 2.40(L) 4.20 - 5.80 10E6/uL 10/25/2024 10:54 PM EDT LAB Hemoglobin 8.3(L) 13.2 - 17.1 g/dL 10/25/2024 10:54 PM EDT LAB Hematocrit 23.7(L) 38.5 - 50.0 % 10/25/2024 10:54 PM EDT LAB MCV 98.9 80.0 - 100.0 fL 10/25/2024 10:54 PM EDT LAB MCH 34.6(H) 27.0 - 33.0 pg 10/25/2024 10:54 PM EDT LAB MCHC 35.0 32.0 - 36.0 g/dL 10/25/2024 10:54 PM EDT LAB RDW 17.8(H) 11.0 - 15.0 % 10/25/2024 10:54 PM EDT LAB Platelets 56(L) 140 - 400 10E3/uL 10/25/2024 10:54 PM EDT LAB Comment: Specimen checked for clots. None detected. Slide Reviewed for PLT Clumps. None Seen. Platelet Estimate Decreased 10/25/2024 10:54 PM EDT LAB MPV 8.1 7.5 - 11.5 fL 10/25/2024 10:54 PM EDT LAB Whole Blood 10/25/2024 10:1 7 PM EDT 10/25/2024 10:17 PM EDT Narrative LAB - 10/25/2024 10:54 PM EDT Peripheral blood smear was scanned per review criteria approved by the laboratory medical reimbursement manager. Leandra Og MD LAB BLOOD ORDERABLES F inal Result Performing Organization Address [facility] Co de Phone Number [facility] [address] [place] [address] * Donor Specific Antibody (DSA) (10/25/2024 10:00 PM EDT) AntiDonor Antibodies The request and specimen(s) for this test have been received and transported to the [facility] [place] at [address] [place] [address]. The [facility] will report results directly to the client. 10/25/2024 10:20 PM EDT LAB Comment:Testing performed by [facility], [facility], [address] [place] [address]. The [facility] report has been forwarded to the appropriate ordering location. Please refer to this report for patient results. Serum 10/25/2024 10:0 0 PM EDT 10/25/2024 10:20 PM EDT Leandra Og MD LAB BLOOD ORDERABLES F inal Result Performing Organization Address [facility] Co de Phone Number [facility] [address] [place] [address] * (ABNORMAL) Venous Blood Gas, Line/Syringe (10/25/2024 10:00 PM EDT) PH-Line Draw 7.38 7.32 - 7.42 10/25/2024 10:08 PM EDT LAB PCO2-Line Draw 33(L) 41 - 51 mm Hg 10/25/2024 10:08 PM EDT LAB PO2-Line Draw 33 25 - 40 mm Hg 10/25/2024 10:08 PM EDT LAB HCO3-Line Draw 20(L) 24 - 28 mmol/L 10/25/2024 10:08 PM EDT LAB CO2 Content-Line Draw 21(L) 25 - 29 mmol/L 10/25/2024 10:08 PM EDT LAB Base Excess-Line Draw -5.0(L) -2.0 - 3.0 mmol/L 10/25/2024 10:08 PM EDT LAB %HBO2-Line Draw 53.8 40.0 - 70.0 % 10/25/2024 10:08 PM EDT LAB Carboxyhgb-Ludivina e Draw 1.9 % 10/25/2024 10:08 PM EDT LAB Comment: CARBOXYHEMOGLOBIN (CO) REFERENCE RANGES: Non-Smokers: <2 % Smokers: <8 % TOXIC: >20 % Methemoglobin- Line Draw 0.2 0.0 - 1.5 % 10/25/2024 10:08 PM EDT LAB Reduced Hemoglobin-Ludivina e Draw 44.1(H) 0.0 - 5.0 % 10/25/2024 10:08 PM EDT LAB Venous, Line Draw 10/25/2024 10:00 PM EDT 10/25/2024 10:04 PM EDT us Leandra Og MD LAB BLOOD ORDERABLES F inal Result LAB [address] [place] [address], [facility] * (ABNORMAL) POC Glucose Monitoring Device (10/25/2024 9:56 PM EDT) POC Glucose Monitoring Device 103(H) 70 - 100 mg/dL 10/25/2024 9:58 PM EDT LAB Blood 10/25/2024 9:56 PM EDT 10/25/2024 9:57 PM EDT Semaj Mcnair III, MD POINT OF CARE TEST ORDERABLES Final Result Performing Organization Address City/[facility]/ZIP Co de Phone Number LAB [address] * ECG 12 lead (MUSE) (10/25/2024 9:34 PM EDT) 10/25/2024 9:34 PM EDT Narrative MUSE - 10/27/2024 10:08 AM EDT Ventricular Rate: 97 BPM Atrial Rate: 86 BPM QRS Duration: 106 ms QT: 532 ms QTc: 675 ms P Banks: 38 degrees R Banks: -29 degrees T Banks: 32 degrees Diagnosis Line: Critical Test Result: Long QTc , AV Block ^ SINUS RHYTHM WITH PREMATURE VENTRICULAR COMPLEXES ^ PROLONGED QT ^ NONSPECIFIC ST AND T WAVE CHANGES ^ ABNORMAL ECG ^ ^ Confirmed by MD [facility] ([id number] on 10/27/2024 10:08:26 AM Leandra Og MD ECG ORDERABLES Final Result Performing Organization Address [facility] Co de Phone Number MUSE * Hepatitis C RNA, Quant Reflex to Genotyp (10/25/2024 8:18 PM EDT) Pathologist [facility] International Units Not Detected IU/mL 10/27/2024 11:03 AM EDT LAB Comment:Test methodology for HCV RNA quantification is an FDA-approved nucleic acid amplification assay. The Lower Limit of Quantitation (LLOQ) is 15 IU/mL. The linear range of the assay is 15-100,000,000 IU/mL. The Limit of Detection (LoD) is 12.0 IU/mL for EDTA plasma. The reference range is Not Detected. IU log10 See Note log 10 IU/mL 10/27/2024 11:03 AM EDT LAB Comment:HCV RNA not detected . Plasma 10/25/2024 8:18 PM EDT 10/25/2024 10:27 PM EDT Leandra Og MD LAB BLOOD ORDERABLES F inal Result LAB [address] [address], [facility] * Urinalysis w/Rfl to Microscopic (10/25/2024 8:18 PM EDT) Color, UA Yellow Yellow,Straw 10/25/2024 10:38 PM EDT LAB Clarity, UA Clear Clear 10/25/2024 10:38 PM EDT LAB Specific [place], UA 1.010 1.005 - 1.035 10/25/2024 10:38 PM EDT LAB pH, UA 6.0 5.0 - 8.0 10/25/2024 10:38 PM EDT LAB Protein, UA Negative Negative mg/dL 10/25/2024 10:38 PM EDT LAB Glucose, UA Negative Negative mg/dL 10/25/2024 10:38 PM EDT LAB Ketones, UA Negative Negative mg/dL 10/25/2024 10:38 PM EDT LAB Bilirubin, UA Negative Negative 10/25/2024 10:38 PM EDT LAB Blood, UA Negative Negative 10/25/2024 10:38 PM EDT LAB Nitrite, UA Negative Negative 10/25/2024 10:38 PM EDT LAB Urobilinogen, UA <2.0 0.2 - 1.9 mg/dL 10/25/2024 10:38 PM EDT LAB Leukocyte Esterase, UA Negative Negative 10/25/2024 10:38 PM EDT LAB Urine 10/25/2024 8:18 PM EDT 10/25/2024 10:35 PM EDT Narrative LAB - 10/25/2024 10:38 PM EDT Microscopic testing is not performed when the dipstick is negative for blood, leukocyte, protein and nitrite. us Leandra Og MD URINE ORDERABLES Final Result LAB [address] [facility]. [address] * Toxoplasma gondii antibody, IgG (10/25/2024 8:18 PM EDT) Toxoplasma Gondii IgG <3.0 0.0 - 7.1 IU/mL 10/27/2024 7:55 AM EDT LAB Comment: Negative <7.2 Equivocal 7.2 - 8.7 Positive >8.7 Serum 10/25/2024 8:18 PM EDT 10/27/2024 8:06 AM EDT [facility] LAB - 10/27/2024 8:06 AM EDT PERFORMED AT: [facility] [id number] [employer] CHAIR: Bassam Khalil, PhD PHONE: [phone] us Leandra Og MD LAB BLOOD ORDERABLES F inal Result Performing Organization Address City/[facility]/ZIP Co de Phone Number LAB [address] [facility]. [address] * Antibody Screen (10/25/2024 7:46 PM EDT) [facility] Antibody Screen Negative 10/25/2024 10:41 PM EDT [facility] Blood 10/25/2024 7:46 PM EDT 10/25/2024 9:54 PM EDT [facility] LAB - 10/25/2024 10:44 PM EDT Testing performed by [facility] Transfusion Service Ben Blake MD BLOOD BANK TEST ORDERABLES Fi nal Result LAB [address] [facility]. [address] * ABO/Rh (10/25/2024 7:46 PM EDT) ABO Grouping O 10/25/2024 10:23 PM EDT LAB Rh Type Positive 10/25/2024 10:23 PM EDT LAB Blood 10/25/2024 7:46 PM EDT 10/25/2024 9:54 PM EDT us Ben Blake MD BLOOD BANK TEST ORDERABLES Fi nal Result LAB [address] [place] [address], [facility] * (ABNORMAL) TEG-Standard Global Hemostasis (Rapid TEG with Heparin Effect, Contains a Baseline TEG) (10/25/2024 7:46 PM EDT) Citrated Kaolin Reaction Time (TEGHEPARINASE) 8.4 4.6 - 9.1 minutes 10/25/2024 10:49 PM EDT LAB Citrated Rapid Teg Maximum Amplitude (TEGHEPARINASE) <40.0(L) 52.0 - 70.0 mm 10/25/2024 10:49 PM EDT LAB Citrated Functional Fibrinogen Maximum Amplitude (TEGHEPARINASE) 6.7(L) 15.0 - 32.0 mm 10/25/2024 10:49 PM EDT LAB Citrated Kaolin W/Heparinase Reaction Time (TEGHEPARINASE) 8.1 4.3 - 8.3 minutes 10/25/2024 10:49 PM EDT LAB Citrated Kaolin K-Time (TEGHEPARINASE) 2.5(A) 0.8 - 2.1 minutes 10/25/2024 10:49 PM EDT LAB Citrated Kaolin Angle (TEGHEPARINASE) 65.7(A) 63.0 - 78.0 degrees 10/25/2024 10:49 PM EDT LAB Citrated Kaolin Maximum Amplitude (TEGHEPARINASE) <40.0(L) 52.0 - 69.0 mm 10/25/2024 10:49 PM EDT LAB Citrated Functional Fibrinogen- Fibrinogen Level (TEGHEPARINASE) 159.5(L) 278.0 - 581.0 mg/dL 10/25/2024 10:49 PM EDT LAB Whole Blood (Citrate) 10/25/2024 7:46 PM EDT 10/25/2024 10:15 PM EDT us Ben Blake MD LAB BLOOD ORDERABLES Final Re sult LAB [address] [place] [address], [facility] documented in this encounter Visit Diagnoses [...] ЮЛИЯ) 0543 (Given - Provider: Yvonne Gale RN)1219 [...] (COMPLETED) 40 mg, Intravenous, Once, On Sun /22/25 at 0900, For 1 dose, Give doses [...] met) 2126 (Not Given - Provider: Yvonne Nottinson, RN - Reason: Order parameters not met) insulin lispro (humaLOG/ADMELOG) injection 0-12 Units 0-12 Units, Subcutaneous, 3 times daily before meals, First dose on Sun10/28/24 at 0930, HIGH ALERT MEDICATION 1029 (Not Given - Provider: Paulette Flannery RN - Reason: Order parameters not met)1234 (Not Given - Provider: Paluette Flannery RN - Reason: Order parameters not [...] Flannery, ЮЛИЯ)1844 (Given - Provider: Vivi Newton, RN)2232 (Given - Provider: Yvonne Gale, ЮЛИЯ) [...] Vandana Vilchis, ЮЛИЯ)0616 (Given - Provider: Vandana Vilchis, ЮЛИЯ) Linked [...] as of this encounter Care Teams Digital Art Director Relationship Specialty Start Date End Date Enedina Mcguire NP [address] [place] [address] PCP - General Internal Medicine 10/05/24 documented as of this encounter
--- OUTSIDE RECORDS SUMMARY | 2024-10-25 22:54 | XMS_ITS | Encounter Summary ---
Author Organization [facility] Address [facility] [place] [address] Care Team Providers Care Toe Sewer Name Role Phone Enedina Mcguire NP Primary Care Provider [phone] Source Comments This information has been disclosed [...] release of HIV test results or diagnoses. [id number] Reason for Visit * Auth/Cert (Routine) Specialty Diagnoses / Procedures Referred By Shane t Referred To Contact Surgical Intensive Care Diagnoses Liver transplant recipient (CMS-HCC) cirrhosis and CKD Procedures LIVER-KIDNEY TRANSPLANT [facility] SICU [address] [place] [address] Phone: tel: Referral ID Status Reason Start Date Expiration Date Visits Re quested Visits Authorized [id number] 1 1 Encounter Details Date Type Department Care Team (Late st Contact Info) Description 10/25/2024 10:54 PM EDT Anesthesia Event [facility] PERIOP [address] [place] [address] Eber Quinones MD [address] [place] [address] Maureen Fleming MD [address] [place] [address] Anesthesia Record Procedure Summary Procedure Name Responsible [...] sodium chloride 0.9% 1 00 mL IVPB (Jyuj3Hpp) 4 g cefTRIAXone (ROCEPHIN) 2 g in sodium chl oride 0.9 % 100 mL Hrbr0Nkj 8 g fluconazole (DIFLUCAN) 200 mg in [...] Sounds Confirmed 10/26/24 0622 by Martha Phillip, RONALDO 10/27/24 1310 by Chinedu Almeida, RONALDO documented [...] the past 12 months has th e [employer], oil, or water [employer] threatened to shut off services in your [...] Blake MD - 10/25/2024 7:26 PM EDT [facility] DEPARTMENT OF ANESTHESIOLOGY PRE-PROCEDURAL EVALUATION Julien [...] dysrhythmias, angina, orthopnea. ECG reviewed. ROS comment: [facility] 10/14/24: IMPRESSIONS: - Patent coronary arteries [...] is no recent study available for direct kpec-vi-yheq comparison. Stress echo 10/09/24: - Left ventricle: [...] at baseline or with provocation, shows no [id number]-ti-ewwr atrial level shunt. - Pulmonary arteries: Systolic [...] Resource Strain: Low Risk (07/09/2024) Received from [facility] Overall Financial Resource Strain (CARDIA) Difficulty of [...] Physical Activity: Unknown (07/14/2024) Received from [facility] Exercise Vital Sign Days of Exercise per Week: Patient unable to answer Minutes of Exercise per Session: Not on file Stress: Patient Unable To Answer (07/14/2024) Received from [facility] [place] of Occupational Health - Occupational Stress Questionnaire Feeling of Stress : Patient unable to answer Social Connections: Patient Unable To Answer (07/14/2024) Received from [facility] Social Connection and Isolation Panel [NHANES] [...] times a day. naloxone (NARCAN) 4 mg/actuation [place] Apply 1 spray in one nostril if [...] MD - 10/25/2024 11:54 PM EDTAssociated Order(s): [place] [facility] Cath [place] [facility] Date/Time: 10/25/2024 11:13 PM Performed [...] procedure performed. Ben Blake MD Attending Anesthesiologist [facility] * Jimmy Gonzalez MD - 10/25/2024 [...] procedure performed. Ben Blake MD Attending Anesthesiologist [facility] documented in this encounter Plan of Treatment Upcoming Encounters Date Type Department Care Team (Late st Contact Info) Description 12/05/2024 8:01 AM EDT Hospital Encounter [facility] ENDOSCOPY [address] [place] [address] Chris Orosco MD [address] [place] [phone] 12/05/2024 8:01 AM EDT - 12/05/2024 8:31 AM EDT Surgery [facility] ENDOSCOPY [address] [place] [id number] Chris Orosco MD [address] [place] [phone] EGD Scheduled Procedures Name Priority Associated Diagnoses [...] EDT Ben Blake MD 10/26/2024 7:45 PM [facility] Cath Date/Time: 10/25/2024 11:13 PM Performed [...] cirrhosis type ([facility]-H[facility]) * Transfer of Care - Maureen Fleming [...] 0659 10/26/24 07 - 10/27/24 0659 Shift [id number] 0487-0659 8592-5695 24 Hour Total [id number] 3846-9113 9238-8453 24 Hour Total INTAKE I.V. 9100(74.3) 9100(74.3) [...] in sodium chloride 0.9 % 100 mL Xjvv0Cxh) 100 100 Volume (mL) (AMPicillin 2 g in sodium chloride 0.9% 100 mL IVPB (Hugc8Qcd)) 200 200 Volume (mL) (albumin human bottle 5%) 1000 1000 Volume (mL) (potassium chloride (KCl)/Sterile water 100 mL 10 mEq/100 mL IVPB) 200 200 Shift Total(mL/kg) 19536(151.9) 43775(151.9) OUTPUT Urine 150(0.2) 1375 1525 Urine 150 [...] in sodium chloride 0.9% 100 mL IVPB (Tomx6Stc) 2 g, Intravenous, at 200 mL/hr, Every 6 hours, First dose on 10/26/24 at 0000, Use Rnlp0Jca Adapter - Mix Thoroughly Before Administration Bolus [...] in sodium chloride 0.9 % 100 mL Lcgi1Gpk 2 g, Intravenous, Administer over 30 Minutes, Once, Use Ikan1Fuq Adapter - Mix Thoroughly Before Administration, Indication? [...] documented as of this encounter Care Teams Toe Sewer Relationship Specialty Start Date End Date Enedina Mcguire NP [address] [place] [address] PCP - General Internal Medicine 10/05/24 documented as of this encounter
--- OUTSIDE RECORDS SUMMARY | 2024-10-27 02:00 | XMS_ITS | Encounter Summary ---
Author Organization [facility] Address [address] [place] [address] Care Team Providers Care What Job Titles Mean Name Role Phone Enedina Mcguire NP Primary Care Provider [phone] Source Comments This information has been disclosed [...] release of HIV test results or diagnoses. [id number] Reason for Visit * Auth/Cert (Routine) Specialty Diagnoses / Procedures Referred By Shane hernadez Referred To Contact Surgical Intensive Care Diagnoses Liver transplant recipient (CMS-HCC) cirrhosis and CKD Procedures LIVER-KIDNEY TRANSPLANT [facility] SICU [address] [place] [address] Phone: tel: Referral ID Status Reason Start Date Expiration Date Visits Re quested Visits Authorized [id number] 1 1 Encounter Details Date Type Department Care Team (Late st Contact Info) Description 10/27/2024 2:00 AM EDT - 10/27/2024 6:54 AM EDT Surgery [facility] PERIOP [address] [place] [address] Semaj Mcnair III, MD [address] [facility] [address] [place] [address] Donor Kidney Transplant , Back [...] Recorded In the past 12 months has Snapt, oil, or water Hypereight threatened to shut off services in your [...] Plata MD - 11/02/2024 2:04 PM EDT [facility] Liver Transplant Surgical Service Inpatient Discharge Summary Patient: Blair Gilbert : 1985 [facility]: [id number] Date of Admission: 10/25/2024 Date of Discharge: [...] Case IDs Date Procedure Surgeon Location Status [id number] 10/25/24 LIVER TRANSPLANT Semaj Mcnair III, MD OR Comp [id number] 10/27/24 Donor Kidney Transplant , Back Bench [...] EXAM: US ABDOMEN LIMITED EXAM: US DUPLEX NXR-AQTVVU-RNPVVRG COMPLETE INDICATION: Post-op liver transplant COMPARISON: None [...] visualized secondary to poor acoustic windows. The shinnecock right kidney measures 11.6 cm in length. [...] 30 tablet Refills: 0 naloxone 4 mg/actuation [place] Commonly known as: NARCAN Apply 1 spray [...] Your Medications These medications were sent to [facility] NAA Baum [address] Mya [address] [place] [address] mycophenolate 250 mg capsule tacrolimus 1 MG capsule These medications were sent to [facility] [address] [place] [id number] Hours: Sunday - Sunday: 8:00AM - 6:00PM [...] Case IDs Date Procedure Surgeon Location Status [id number] 10/25/24 LIVER TRANSPLANT Semaj Mcnair III, MD OR Comp [id number] 10/27/24 Donor Kidney Transplant , Back Bench [...] discharge. NEURO/PAIN - Patient placed on Dilaudid HR CONSULTANT once extubated, then transitioned to multi-modal pain [...] scheduled for removal on 11/25 [facility] [place]/OT evaluated patient and recommended Home PT/OT, outpatient PT/OT only available. ENDO - A1C is 5.0. Pt was not on diabetic regimen prior to arrival. Patient developed steroid-induced hyperglycemia 2/2 steroid regimen. Discharged home on the following regimen: HDSSI. Patient met w/ paraeducator prior to discharge. HEME - Post-operatively, [...] Patient and family received post-transplant education from display coordinator as well as medication teaching from [...] 11/04/2024 8:40 AM LTRA SURGERY, [facility] LTRA HOX HOX 11/04/2024 10:10 AM LTRA HEPATORENAL HOX LTRA HOX HOX 11/25/2024 9:00 AM NAA Merida [facility] MAB MAB 12/02/2024 2:00 PM Bossman Huffman MD [facility]IANGEL MAB MAB 02/25/2025 10:50 AM Bruno Gonzalez MD KTSP HOX HOX Kenyetta Hartman, MS-4 [facility] SHAY PLATA MD 11/02/2024 12:50 PM [...] kept under 2 gm/day. Please discuss withyour display coordinator if you have any question about appropriate dose to take. Other Instructions: Call post-liver transplant clinic with questions [phone] or call [facility] at [phone] and ask for the liver display coordinator early intervention school psychologist if you experience any of the following: [...] 11/04/2024 8:40 AM LTRA SURGERY, [facility] LTRA HOX HOX 11/04/2024 10:10 AM LTRA HEPATORENAL [facility] LTRA HOX HOX 11/25/2024 9:00 AM NAA Merida [facility] MAB MAB 12/02/2024 2:00 PM Bossman [...] 10/27/2024 blood-glucose meter (TRUE METRIX GLUCOSE METER) [facility] Use to test blood sugar up to [...] AM EDT 10/27/2024 lancets (ACCU-CHEK SOFTCLIX LANCETS) [facility] Use to test blood sugar up to [...] capsule 5 10/27/2024 naloxone (NARCAN) 4 mg/actuation [place] Apply 1 spray in one nostril if [...] tacrolimus and mycophenolate which were dispensed through [facility] per insurance requirements. Patient's [...] fair Expected caregiver involvement?: is primary med breeding manager Need for additional education in clinic?: routine reinforcement only Future medications to be obtained from, if known (select one): Tac/MMF to be filled from [facility] Financial concerns (if [...] R-11 blood-glucose meter (TRUE METRIX GLUCOSE METER) [facility] Use to test blood sugar up to [...] Disp-15 mL, R-2 lancets (ACCU-CHEK SOFTCLIX LANCETS) [facility] Use to test blood sugar up to [...] Disp-30 tablet, R-0 naloxone (NARCAN) 4 mg/actuation [place] Apply 1 spray in one nostril if [...] Solid Organ Transplant Clinical Specialist Contact via [employer] Secure Chat * Froylan Hendrickson MD - 11/01/2024 8:04 AM EDT Liver Transplant Surgery Progress Note Name: Blair Gilbert CSN: [id number] Date: 11/01/2024 8:06 AM OR Date: 10/25/2024 [...] at 10/31/2024 4:38 PM EDT US Duplex Yqb-Pcy-Xpazldb Comp Result Date: 10/31/2024 IMPRESSION: RIGHT UPPER [...] 10/25/2024 - 10/27/2024. Plan: Liver transplant recipient ([facility]) [Z94.4] Neuro: - Multimodal pain [...] 3:24 PM EDT TXP - Follow Up [facility] Medical Nutrition Therapy Transplant Brief [...] very high calorie protein supplement ([facility] only) Pertinent Information: Pt seen for [...] Based on DBW of 93.1 kg Kcals/day: 8552-2651 (25-30 kcals/kg) Protein g/day: 140-190 (1.5-2.0 g/kg) [...] Dietitian - Solid Organ Transplant Contact via [employer] Chat * Keon Dobson - 10/31/2024 2:35 PM EDT [facility] Spiritual Care Volunteer Visit PATIENT NAME: Blair Gilbert ROOM:[id number]/[id number] Mandaen Affiliation:Christian Blair Gilbert was visited by a volunteer today. No needs requiring a visit from a staff precision instrument and tool maker were expressed at that time. Care Provided: Communion, Prayer/ blessing Please page our service at [phone] as needs arise for patient and/or family. Fr Dean Dobson Christian precision instrument and tool maker Spiritual Care Dept * Brittany Horne PT [...] transplant recipient (CMS-HCC) [Z94.4] Date: 10/31/2024 Room: [facility]/80 Reviewed Pertinent hospital course: Yes Hospital Course [...] issued by OT: Long-handled sponge, Sock aid, Engineering Assistant, Other (comment) Equipment issued by OT comment: leg corporate quality assurance manager Assessment Assessment: Decreased ADL status, Decreased IADLs, [...] IADL task (Goal met and continued 10/31) Usp Goal : Pt will complete bathing assessment and transfer salvage determiner goal to be met in: 2 weeks [...] Hypertension Other hyperlipidemia 07/26/2024 Renal cell carcinoma ([facility]) Thrombocytopenia ([facility]) Thyroid disease Past Surgical History Past Surgical [...] Patient Active Problem List Diagnosis Decompensated cirrhosis ([facility]) Acute kidney injury superimposed on CKD ([facility]) Alcohol use disorder Metabolic encephalopathy Hypertension Other hyperlipidemia Thrombocytopenia ([facility]) Renal mass, left Abdominal pain Hypokalemia CKD (chronic kidney disease) stage 4, GFR 15-29 ml/min ([facility]) Metabolic acidosis with normal anion gap and bicarbonate losses GERD (gastroesophageal reflux disease) Hypothyroidism Itching Anemia BRBPR (bright red blood per rectum) SBP (spontaneous bacterial peritonitis) ([facility]) C Diff Diarrhea C. difficile diarrhea Neck [...] 0659 10/31/24 07 - 11/01/24 0659 Shift 2961-9975 8547-1078 8603-6647 24 Hour Total 4084-5893 8763-1190 6639-5336 24 Hour Total INTAKE P.O. 240 240 P.O. 240 240 Shift Total(mL/kg) 240(1.9) 240(1.9) OUTPUT Urine(mL/kg/hr) 1850(1.8) 600(0.6) 600(0.6) 3050(1) 350 350 Urine 800 476 761 3261 350 350 Urine Occurrence 2 x 2 [...] with further concerns Lavell Kramer MD 10/31/[phone] * Priti Geiger CNP - 10/31/2024 10:06 AM EDT Liver Transplant Surgery Progress Note Name: Blair Gilbert CSN: [id number] Date: 10/31/2024 10:06 AM OR Date: 10/25/2024 [...] 10/28/24 1109 LACTATE 0.3* Imaging US Duplex Ptm-Gzg-Lvsbdqo Comp Result Date: 10/28/2024 IMPRESSION: ABDOMINAL ULTRASOUND [...] Transplant Nephrology Progress Note Patient: Blair Gilbert [id number] [id number] Date of Admit: 10/25/2024. 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 Lauren Santos, DNP, BIODIESEL PRODUCTION ASSOCIATE, NURSING PROGRAM CHAIR- Transplant Nephrology [phone] Preferred contact: secure chat The HPI, ROS, [...] 0659 10/30/24 07 - 10/31/24 0659 Shift 4332-5255 9377-4919 7779-9947 24 Hour Total 9256-7126 5551-1863 4275-3852 24 Hour Total INTAKE P.O. 240 240 480 P.O. 240 240 480 IV Piggyback 87.2 87.2 Volume (mL) (micafungin (MYCAMINE) 50 mg in sodium chloride 0.9 % 100 mL Scxz4Wfp IVPB) 87.2 87.2 Shift Total(mL/kg) 240(2) 327.2(2.7) 567.2(4.4) OUTPUT Urine(mL/kg/hr) 600(0.6) 1175(1.2) 450(0.4) 2225(0.7) 550 550 Output (mL) (IUC (Berkowitz) Triple-lumen (3-Way) 18 Fr.) 600 4338 255 4883 550 550 Drains 175 245 100 520 [...] month of prophylaxis Lavell Kramer MD 10/30/[phone] * Priti Geiger CNP - 10/30/2024 10:36 AM EDT Liver Transplant Surgery Progress Note Name: Blair Gilbert CSN: [id number] Date: 10/30/2024 10:37 AM OR Date: 10/25/2024 [...] 1109 LACTATE 0.5 0.3* Imaging US Duplex Vhz-Nuj-Uzsgepk Comp Result Date: 10/28/2024 IMPRESSION: ABDOMINAL ULTRASOUND [...] 10/25/2024 - 10/27/2024. Plan: Liver transplant recipient ([facility]) [Z94.4] Neuro: - Multimodal pain [...] Transplant Nephrology Progress Note Patient: Blair Gilbert [id number] [id number] Date of Admit: 10/25/2024. 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 Lauren Santos, DNP, BIODIESEL PRODUCTION ASSOCIATE, NURSING PROGRAM CHAIR- Transplant Nephrology [phone] Preferred contact: secure chat The HPI, ROS, [...] EDT Pt seen, examined, and discussed with STUDY HALL SUPERVISOR on 10/30/2024. reviewed the chart including [...] 3:36 PM EDT TXP - Follow Up [facility] Medical Nutrition Therapy Follow-Up Diet [...] Based on DBW of 93.1 kg Kcals/day: 8263-7355 (25-30 kcals/kg) Protein g/day: 140-190 (1.5-2.0 g/kg) [...] Dietitian - Solid Organ Transplant Contact via [employer] Chat * Anita Carrascoradha, PT - 10/29/2024 2:04 PM EDT Physical Therapy Initial Assessment Name: Blair Gilbert : 1985 Attending Physician: Semaj Mcnair III, MD Admission Diagnosis: Liver transplant recipient (CMS-HCC) [Z94.4] Date: 10/29/2024 Room: [place] [address] [address] Reviewed Pertinent hospital course: Yes Hospital Course [...] with functional mobility at: 10 or less Pastry Cook Goal : Pt will ambulate 250' mod [...] Hypertension Other hyperlipidemia 07/26/2024 Renal cell carcinoma ([facility]) Thrombocytopenia ([facility]) Thyroid disease Past Surgical History Past Surgical History: Procedure Laterality Date ESOPHAGOGASTRODUODENOSCOPY N/A 10/10/2024 Procedure: EGD; Surgeon: Lino Soto MD; Location: ENDOSCOPY; Service: Gastroenterology; Laterality: N/A; LEFT HEART CATH N/A 10/14/2024 Procedure: Left Heart Cath; Surgeon: Irving Matta MD; Location: CARDIAC CATH LABS; Service:Cath; Laterality: N/A; LIVER-KIDNEY TRANSPLANT N/A 10/25/2024 Procedure: LIVER TRANSPLANT; Surgeon: Semja Mcnair III, MD; Location: OR; Service: Transplant; Laterality: N/A; NEPHRECTOMY TRANSPLANTED ORGAN N/A 10/27/2024 Procedure: Donor Kidney Transplant , Back Bench Preparation Donor Kidney, Baseline Kidney transplant biopsy , Insertion of Indwelling Stent , Removal of Perihepatic packing; Surgeon: Semaj Mcnair III, MD; Location: OR; Service: Transplant; Laterality: N/A; [1] Patient Active Problem List Diagnosis Decompensated cirrhosis ([facility]) Acute kidney injury superimposed on CKD ([facility]) Alcohol use disorder Metabolic encephalopathy Hypertension Other hyperlipidemia Thrombocytopenia ([facility]) Renal mass, left Abdominal pain Hypokalemia CKD (chronic kidney disease) stage 4, GFR 15-29 ml/min ([facility]) Metabolic acidosis with normal anion gap and bicarbonate losses GERD (gastroesophageal reflux disease) Hypothyroidism Itching Anemia BRBPR (bright red blood per rectum) SBP (spontaneous bacterial peritonitis) ([facility]) C Diff Diarrhea C. difficile diarrhea Neck pain with history of cervical spinal surgery * Shanel Pabon, OT - 10/29/2024 1:23 PM EDT Occupational Therapy Initial Assessment Name: Blair Gilbert : 1985 Attending Physician: Semaj Mcnair III, MD Admission Diagnosis: Liver transplant recipient ([facility]) [Z94.4] Date: 10/29/2024 Room: [place] [address] [address] Reviewed Pertinent hospital course: Yes Hospital Course [...] Intervention(s): Ambulation/increased activity;Repositioned Therapist reported pain to: type photography supervisor Oxygen Supplemental Oxygen Supplemental Oxygen: None [...] distance ambulation in prep for IADL task Pastry Cook Goal : Pt will complete bathing assessment and transfer salvage determiner goal to be met in: 2 weeks [...] Patient Active Problem List Diagnosis Decompensated cirrhosis ([facility]) Acute kidney injury superimposed on CKD ([facility]) Alcohol use disorder Metabolic encephalopathy Hypertension Other hyperlipidemia Thrombocytopenia ([facility]) Renal mass, left Abdominal pain Hypokalemia CKD (chronic kidney disease) stage 4, GFR 15-29 ml/min ([facility]) Metabolic acidosis with normal anion gap and bicarbonate losses GERD (gastroesophageal reflux disease) Hypothyroidism Itching Anemia BRBPR (bright red blood per rectum) SBP (spontaneous bacterial peritonitis) ([facility]) C Diff Diarrhea C. difficile diarrhea Neck pain with history of cervical spinal surgery * Caron Santos CNP - 10/29/2024 10:30 AM EDT Images from the original note were not included. Transplant Nephrology Progress Note Patient: Blair Gilbert [id number] SICU-28/[facility] Date of Admit: 10/25/2024. LOS: 4 days. 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 Lauren Santos, SAMSON, BIODIESEL PRODUCTION ASSOCIATE, NURSING PROGRAM CHAIR- Transplant Nephrology [phone] Preferred contact: secure chat The HPI, ROS, [...] Surgery Progress Note Name: Blair Gilbert CSN: [id number] Date: 10/29/2024 10:08 AM OR Date: 10/25/2024 [...] LACTATE 0.4* 0.5 0.3* Imaging US Duplex Bca-Uqk-Qdueesr Comp Result Date: 10/28/2024 IMPRESSION: ABDOMINAL ULTRASOUND [...] at 10/27/2024 10:38 AM EDT US Duplex Nzu-Rcq-Nlaqlxz Comp Result Date: 10/27/2024 IMPRESSION: RIGHT UPPER [...] 10/25/2024 - 10/27/2024. Plan: Liver transplant recipient ([facility]) [Z94.4] Neuro: - Multimodal pain [...] Date 10/28/24699 - 10/29/2465810/29/24699 - 10/30/24658 Shift 6516-6100 2151-9402 2368-3749 24 Hour Total 0229-5222 9530-8529 1493-6563 24 Hour Total INTAKE P.O. 240 0 [...] IV infusion) 253.9 374.7 775.6 1404.2 Blood 9206 465 4659 Albumin 750 750 Volume (Transfuse RBC Transfusion Rate: Per dept routine) 310 310 Volume (Transfuse RBC Transfusion Rate: Per dept routine) 271 271 IV Piggyback 918.4 772 46 4796.4 Volume (mL) (micafungin (MYCAMINE) 50 mg in sodium chloride 0.9 % 100 mL Ozci3Lix IVPB) 99.9 99.9 Volume (mL) (albumin human [...] month of prophylaxis Lavell Kramer MD 10/29/[phone] * John Moreno MD - 10/29/2024 6:47 AM EDT SURGICAL ICU PROGRESS NOTE 10/29/2024 6:47 AM Name: Blair Gilbert [facility]: [id number] HPI: Blair Gilbert is a 39 y.o. [...] to 4 times a day. DEXCOM G7 GAS REGULATOR REPAIRER Misc Use reader as directed. DEXCOM [...] and at bedtime. lancets (ACCU-CHEK SOFTCLIX LANCETS) [facility] Use to test blood sugar up to 4 times a day. methocarbamoL (ROBAXIN) 500 MG tablet Take 1 tablet (500 mg total) by mouth 3 times a day. naloxone (NARCAN) 4 mg/actuation [place] Apply 1 spray in one nostril if [...] 37 37 35 PO2ART 245* 182* 92 MOH3TVM 22 21* 21* BEART -4.2* -4.8* -4.6* [...] at baseline or with provocation, shows no oydxr-em-sltt atrial level shunt. - Pulmonary arteries: Systolic [...] Home pantoprazole 40mg daily, continue Last BM: BUSINESS CONTROLLER - suppository today Bowel regimen: Miralax today, [...] results for input(s): TEGANGLE , TEGKTIME , MKGEHFNX74 , TEGMAXAMPL , TEGRTIME , CBMZ in [...] in sodium chloride 0.9 % 100 mL Sxnr6Oxy IVPB 50 mg Every 24 hours 10/27/2024 -- Admin Instructions: PROTECT FROM LIGHT FLUSH LINE w/NSS PRIOR TO ADMINISTRATION Use Zneg8Gsu Adapter - Mix Thoroughly Before Administration Route: [...] BID Continuous Infusions: HYDROmorphone 6 mg/30 mL HR CONSULTANT norepinephrine 4 mcg/min (10/27/24 2318) sodium chloride [...] - 10/28/2465810/28/24 07 - 10/29/24 0659 Shift 2982-0226 3428-7883 5202-6432 24 Hour Total 0672-7957 8516-6844 4231-5614 24 Hour Total INTAKE P.O. 0 120 [...] in sodium chloride 0.9 % 100 mL Glxc8Jqb IVPB) 100 100 Volume (mL) (albumin human 5%) 126 126 Volume (mL) (potassium chloride (KCl)/Sterile water 50 mL 20 mEq/50 mL IVPB 20 mEq) 100 100 Volume (mL) (AMPicillin 1 g in sodium chloride 0.9% 100 mL IVPB (Pnyi2Mdd)) 100.1 57 42.9 200 Volume (mL) (mycophenolate (CELLCEPT) 500 mg in dextrose 5% in water (D5W) 50 mL IVPB) 50 5.3 55.3 Shift Total(mL/kg) 2079.3(17) 1161(9.5) 787.3(6.4) 4027.6(32.9) OUTPUT Urine(mL/kg/hr) 2195(2.2) 1000(1) 900(0.9) 4095(1.4) 490 490 Urine 360 360 Output (mL) (IUC (Berkowitz) Triple-lumen (3-Way) 18 Fr.) 1835 7458 513 3729 490 490 Emesis/NG output 50 50 Drainage [...] month of prophylaxis Lavell Kramer MD 10/28/[phone] * Caron Santos CNP - 10/28/2024 9:00 AM EDT Images from the original note were not included. Transplant Nephrology Progress Note Patient: Blair Gilbert [id number] SICU-28/[facility]-28 Date of Admit: 10/25/2024. 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 Lauren Santos, DNP, BIODIESEL PRODUCTION ASSOCIATE, NURSING PROGRAM CHAIR- Transplant Nephrology [phone] Preferred contact: secure chat The HPI, ROS, [...] EDT Pt seen, examined, and discussed with STUDY HALL SUPERVISOR on 10/28/2024. reviewed the chart including the labs and imaging studies. My additional comments below. 39 y.o. 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 S/p SLK 10/25-10/26 Has great UOP 4.2L Aaron Gonzalez MD, MEd, FASN * Shay Plata MD - 10/28/2024 7:41 AM EDT Liver Transplant Surgery Progress Note Name: Blair Gilbert CSN: [id number] Date: 10/28/2024 11:05 AM OR Date: 10/25/2024 - 10/27/2024 Subjective: 1 Day Post-Op Received one unit pRBCs overnight On low dose levo this morning Increasing tachycardia Reports worsening pain, on HR CONSULTANT Tolerated sips of clears No nausea/vomiting, no [...] Oral BID Continuous: HYDROmorphone 6 mg/30 mL HR CONSULTANT norepinephrine Stopped (10/28/24 0637) sodium chloride 0.9 [...] at 10/27/2024 10:38 AM EDT US Duplex Cct-Xpy-Mztmgip Comp Result Date: 10/27/2024 IMPRESSION: RIGHT UPPER [...] 10/25/2024 - 10/27/2024. Plan: Liver transplant recipient ([facility]) [Z94.4] Neuro: - Multimodal pain control: dilaudid HR CONSULTANT, tylenol, robaxin. PRN dilaudid for breakthrough CV: [...] SICU SHAY PLATA MD, MS4 [facility] 11:05 AM 10/28/2024 Cosigned by Lydia [...] 10/28/2024 6:17 AM Name: Blair Gilbert CSN: [id number] HPI: Blair Gilbert is a 39 y.o. [...] to 4 times a day. DEXCOM G7 GAS REGULATOR REPAIRER Misc Use reader as directed. DEXCOM [...] times a day. naloxone (NARCAN) 4 mg/actuation [place] Apply 1 spray in one nostril if [...] Oral BID Continuous: HYDROmorphone 6 mg/30 mL HR CONSULTANT insulin regular in 0.9 % sodium chloride [...] 37 37 35 PO2ART 245* 182* 92 AIU1WLQ 22 21* 21* BEART -4.2* -4.8* -4.6* [...] at baseline or with provocation, shows no iaszw-ll-kkhk atrial level shunt. - Pulmonary arteries: Systolic [...] while intubated,convert to PO today Last BM: BUSINESS CONTROLLER Bowel regimen: Miralax today, hold senna til [...] ml IV Fluids: HYDROmorphone 6 mg/30 mL HR CONSULTANT insulin regular in 0.9 % sodium chloride, [...] no concerns - 3 day berkowitz - ia 10/30 - Makes urine at baseline - [...] results for input(s): TEGANGLE , TEGKTIME , NRNZDRZI76 , TEGMAXAMPL , TEGRTIME , CBMZ in [...] in sodium chloride 0.9% 100 mL IVPB (Agzq9Kuj) (Completed) 1 g Every 6 hours scheduled 10/26/2024 10/28/2024 Admin Instructions: Dosage may need to be adjusted for renal dysfunction. Full dose is 1g IV q6h Use Cufr0Ugn Adapter - Mix Thoroughly Before Administration Notes to Pharmacy: On weight recorder estimated creatinine clearance is 35.9 mL/min [...] in sodium chloride 0.9 % 100 mL Tcvm1Adg IVPB 50 mg Every 24 hours 10/27/2024 -- Admin Instructions: PROTECT FROM LIGHT FLUSH LINE w/NSS PRIOR TO ADMINISTRATION Use Tvaf6Tzx Adapter - Mix Thoroughly Before Administration Route: [...] R IJ Mac Arterial Line? R radial [place] Urinary Catheter? Berkowitz - Reason: Adequate I/O [...] Risk Score of 10 and [facility] transplant protocol, I recommend discharging [...] Solid Organ Transplant Clinical Specialist Contact via [employer] Secure Chat Preferred O. [phone] * Chinedu Almeida RRT - 10/27/2024 1:10 [...] Yes MD Order No SBT No Yes [place] Coma Scale > 8 Yes Lab Results Component Value Date PHART 7.36 10/27/2024 PCO2 37 10/27/2024 PO2ART 245 (H) 10/27/2024 XZX2FNM 22 10/27/2024 BEART -4.2 (L) 10/27/2024 OHI3CJK 96.5 10/27/2024 S2LTWEPP 100 10/27/2024 Based on this SBT assessment [...] Surgery Progress Note Name: Blair Gilbert CSN: [id number] Date: 10/27/2024 11:40 AM OR Date: 10/25/2024 - 10/27/2024 Subjective: * Day of Surgery * Remains intubated in SICU Sedated but appropriately nods to questions No acute distress Objective: BP 100/48 Pulse 89 Temp 99 ??F (37.2 ??C) ([place]) Resp 9 Ht 6' 4 (1.93 m) [...] at 10/27/2024 10:38 AM EDT US Duplex Jtj-Ocw-Joyovek Comp Result Date: 10/27/2024 IMPRESSION: RIGHT UPPER [...] 10/27/2024. Problem List[1] Plan: Liver transplant recipient ([facility]) [Z94.4] Neuro: - Propofol/fentanyl CV: [...] Patient Active Problem List Diagnosis Decompensated cirrhosis ([facility]) Acute kidney injury superimposed on CKD ([facility]) Alcohol use disorder Metabolic encephalopathy Hypertension Other hyperlipidemia Thrombocytopenia ([facility]) Renal mass, left Abdominal pain Hypokalemia CKD (chronic kidney disease) stage 4, GFR 15-29 ml/min ([facility]) Metabolic acidosis with normal anion gap and bicarbonate losses GERD (gastroesophageal reflux disease) Hypothyroidism Itching Anemia BRBPR (bright red blood per rectum) SBP (spontaneous bacterial peritonitis) ([facility]) C Diff Diarrhea C. difficile diarrhea Neck [...] 10/27/2024 7:16 AM Name: Blair Gilbert CSN: [id number] HPI: Blair Gilbert is a 39 y.o. [...] times a day. naloxone (NARCAN) 4 mg/actuation [place] Apply 1 spray in one nostril if [...] 47* 36 37 PO2ART 127* 91 137* HVK3LLI 21* 22 20* BEART -5.4* -3.9* -6.4* [...] at baseline or with provocation, shows no ufymu-ew-cobj atrial level shunt. - Pulmonary arteries: Systolic [...] IV pantoprazole while intubated, NPO Last BM: BUSINESS CONTROLLER Bowel regimen: Senna/Miralax when able Nausea: Zofran [...] 10/27/2024 0715 Gross per 24 hour Intake 61142.82 ml Output 7060 ml Net 6224.82 ml [...] results for input(s): TEGANGLE , TEGKTIME , CMDQNMWL44 , TEGMAXAMPL , TEGRTIME , CBMZ in [...] in sodium chloride 0.9% 100 mL IVPB (Jfuq1Iro) 1 g Every 6 hours scheduled / Admin Instructions: Dosage may need to be adjusted for renal dysfunction. Full dose is 1g IV q6h Use Olyv7Ccs Adapter - Mix Thoroughly Before Administration Notes to Pharmacy: On weight recorder estimated creatinine clearance is 35.9 mL/min (A) (based on SCr of 3.87 mg/dL (H)). Route: Intravenous Linked Group 1: Placed in And Linked Group cefTRIAXone (ROCEPHIN) 2 g in sodium chloride 0.9 % 100 mL Jxha6Sec Continuous - One Step Medications Only 10/27/2024 [...] Agitation Sedation Scale: -2 Overall CAM-ICU : ([facility]) A/P: - ADDY # [...] R IJ Mac Arterial Line? R radial [place] Urinary Catheter? 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 naloxone (NARCAN) 4 mg/actuation [place] Apply 1 spray in one nostril if [...] Resource Strain: Low Risk (07/09/2024) Received from [facility] Overall Financial Resource Strain (CARDIA) [...] Activity: Unknown (07/14/2024) Received from [facility] Exercise Vital Sign Days of Exercise per Week: Patient unable to answer Minutes of Exercise per Session: Not on file Stress: Patient Unable To Answer (07/14/2024) Received from [facility] [place] of Occupational Health - Occupational Stress Questionnaire Feeling of Stress : Patient unable to answer Social Connections: Patient Unable To Answer (07/14/2024) Received from [facility] Social Connection and Isolation Panel [NHANES] Frequency [...] [facility] Liver Transplant Pager: [phone] 8:24 PM 10/25/2024 Cosigned by Seamj Mcnair III, MD at 10/30/2024 10:46 AM [...] Name: Blair Gilbert Date: 1985 Billing #: [id number] Date of Procedure: 10/25/2024 Diagnosis: End Stage Renal Disease Procedure: 1. Donor Kidney Transplant 2. Back Bench Preparation Donor Kidney 3. Baseline Kidney transplant biopsy 4. Insertion of Indwelling Stent 5. Removal of Perihepatic packing Surgeons * Flaquito Ba MD Applique Sewer MD Shayan Findings: Low Hockey stick incision [...] donor was ABO O and UNOS ID [id number], Match Run [id number] (SLK). This donor was a Donor after [...] was then wanded with the lap detection library technical assistant. The incision was ex tented 2 [...] and closure. Flaquito Ba MD Transplant Surgeon internal control manager * Flaquito Ba MD - 10/27/2024 6:15 AM EDT TRANSPLANT KIDNEY with bile duct reconstruction Brief Op Note Blair Gilbert 10/27/2024 Pre-op Diagnosis: Acute kidney injury superimposed on CKD (CMS-HCC) [N17.9, N18.9] Post-op Diagnosis: same Procedure(s): TRANSPLANT KIDNEY Surgeon(s): MD Semaj Washington III, MD Anesthesia: General Endotracheal Staff: Building Construction Engineer: Chinedu Quinn RN Scrub Person: ST Angela Fellow: Kemar Sahni MD 2nd Building Construction Engineer: Marty Clark RN 3rd Building Construction Engineer: Candis Mcdaniel RN FINDINGS Berkowitz 3 day Drains: Intraabdominal (perihepatic) UNOS ID [id number], Match Run [id number] Kid WIT 27 min Kid CIT 33 [...] (Berkowitz) Triple-lumen (3-Way) 18 Fr. (Active) Status Himrod Drainage 10/26/241999 Collection Container Standard drainage bag [...] Washington III, MD Anesthesia: General Endotracheal Staff: Building Construction Engineer: Chinedu Quinn RN Relief Building Construction Engineer: Michela Amos RN Relief Scrub: Stephani Blake RN Scrub Person: ST Angela Fellow: Kemar Sahni MD 2nd Building Construction Engineer: Marty Clark RN 3rd Building Construction Engineer: Candis Mcdaniel RN Estimated Blood Loss: [...] (Berkowitz) Triple-lumen (3-Way) 18 Fr. (Active) Status [place] Drainage 10/26/241999 Collection Container Standard drainage bag [...] day Drains: 2 Intraabdominal (perihepatic) UNOS ID [id number], Match Run [id number] Donor: young DCD NRP Kid WIT 27 [...] - 10/27/2024 12:00 AM EDT [facility] PATIENT NAME: BLAIR GILBERT DATE OF : 1985 CSN: [id number] PHYSICIAN: Semaj Mcnair III, MD ADMIT DATE: 10/25/2024 DICTATED BY: Semaj Mcnair III, MD SURGERY DATE: 10/27/2024 OPERATIVE REPORT SURGEON: Semaj Mcnair III, MD FILM AND VIDEO GRAPHICS DESIGNER SURGEON: Kemar Sahni MD. PREOPERATIVE DIAGNOSIS: Open [...] were made hemostatic with the argon beam well logging mud analysis captain. We assessed the flows of the portal [...] a mucocele formation. We then performed a pbtv-dz-glga choledochocholedochostomy in an end to end fashion [...] small umbilicalhernia that was closed with a vuvkis-eh-uaeds 0 PDS suture. At this point, we [...] complications. SEMAJ MCNAIR III, MD RCQ/AQ JOB#: [id number] * Semaj Mcnair III, MD - 10/26/2024 7:00 AM EDT Patient Name: Blair Gilbert Date: 1985 Billing #: [id number] Date of Procedure: 10/25/2024 - 10/26/2024 Diagnosis: Chronic Hepatic Failure without coma Procedure: 1. Orthotopic Liver Transplant 2. Back Bench Preparation Donor Liver 3. Temporary portocaval shunt 4. Perihepatic packing for control of hemorrhage 5. Placement of external choledochal stent 6. Temporary abdominal closure Attending surgeons: Semaj Mcnair III, MD Applique Sewer Surgeon(s): Sveta uJdge MD Findings: Whole organ placed in piggyback fashion with suprahepatic cava of donor to common orifice of all three hepatic veins for IVC anastomosis. Donor main portal vein to recipient main portal vein. Donor common hepatic artery to recipient right hepatic artery. Temporary abdominal with perihepatic packingfor control of hemorrhage. Externalization of bile duct with 8 [place] pediatric feeding tube. Portal Flow Modulation No [...] This donor was ABO O and UNOSID [id number], Match Run [id number]. This was a 42-year-old donation after circulatory [...] After completion of the outflow anastomosis, a [place] clamp was placed across the donor suprahepatic [...] artery flows were then measured with the Hele Massagestem device. The portal flow was 3.4 L/min [...] do a temporary abdominal closure. An 8 [place] pediatric feeding tube was brought through the [...] Sveta Alves III, MD Anesthesia: General Staff: Building Construction Engineer: Mak Maher RN; Maryt Clark RN Scrub Person: ST Angela Resident: Thuy Leon MD high school library media specialist: Jose Daniel Arana, RONALDO Estimated Blood Loss: [...] Number of days: 5 Surgery Information: -UNOS#: [id number] -ABO: O to O -Recipient: SLK candidate [...] 1:19 PM EDTAssociated Order(s): IP CONSULT TO HAND EMBROIDERER [facility] Transplant Discharge Education Note Assessment: [...] OLIVE Saunders, RN, NPD- Diabetes Education Office [phone] Schedule: M-F 8:00am-4:30pm * Ben Weiss, RD - 10/27/2024 4:06 PM EDTAssociated Order(s): IP CONSULT TO NUTRITION SERVICES; IP CONSULT TO NUTRITION SERVICES TXP - Initial [facility] Medical Nutrition Therapy Reason(s) for [...] I/O: +23.2L net volume. Last BM Date: (BUSINESS CONTROLLER). Admit Weight: 270 lb (122.5 kg) Current [...] Based on DBW of 93.1 kg Kcals/day: 3633-2277 (25-30 kcals/kg) Protein g/day: 140-190 (1.5-2.0 g/kg) [...] Dietitian - Solid Organ Transplant Contact via [employer] Chat * Lavell Kramer MD - 10/27/2024 11:09 AM EDTAssociated Order(s): INPATIENT CONSULT TO TRANSPLANT INFECTIOUS DISEASES Infectious Disease Consultation Patient: Blair Gilbert CSN: [id number] Assessment & Plan 39 y.o. M s/p [...] blood cx's if febrile Lavell Kramer MD [phone] Chief Complaint Long Qtc History of Present [...] Resource Strain: Low Risk (07/09/2024) Received from [facility] Overall Financial Resource Strain (CARDIA) Difficulty [...] Activity: Unknown (07/14/2024) Received from [facility] Exercise Vital Sign Days of Exercise per Week: Patient unable to answer Minutes of Exercise per Session: Not on file Stress: Patient Unable To Answer (07/14/2024) Received from [facility] [place] of Occupational Health - Occupational Stress Questionnaire Feeling of Stress : Patient unable to answer Social Connections: Patient Unable To Answer (07/14/2024) Received from [facility] Social Connection and Isolation Panel [NHANES] Frequency [...] to 4 times a day. DEXCOM G7 GAS REGULATOR REPAIRER Misc Use reader as directed. DEXCOM [...] times a day. 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 No indications for PIPE FITTER MARINE. Good UOP - Noted KT US WNL [...] preliminary until attending attestation. Lauren Santos, DNP, BIODIESEL PRODUCTION ASSOCIATE, NURSING PROGRAM CHAIR- Transplant Nephrology [phone] Preferred contact: secure chat [1] Allergies Allergen [...] Gonzalez MD, MEd, FASN * Marcellus Hebert, TELEPHONE OPERATOR CHIEF, LITERACY EDUCATION PROFESSOR - 10/27/2024 10:21 AM EDT HEALTH Care Management/Social Work Assessment Patient Information Patient Name: Blair Gilbert Hospital Day: 2 Inpatient/Observation: Inpatient Admit Date: 10/25/2024 Admission Diagnosis: Liver transplant recipient (CMS-HCC) [Z94.4] Attending provider: Semaj Mcnair III, MD PCP: Enedina Mcguire NP Home Pharmacy: [facility] [address] [place] [address] [place] [address] [facility] [address] [facility] [address] Issues related to obtaining medications: N/A Payor Information Medical Insurance Coverage: Payor: [facility] / Plan: [facility] GLOBAL / Product Type: *No [...] History: 12 weeks of CD Treatement at [facility] Do you need Substance Abuse Treatment Resources?: [...] Was any abuse reported by patient?: No Raymond Status & Connection to VA Services Status [...] currently resides with his spouse at their [facility] in [place]. 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 Spouse explained that he will complete a 6 month virtual program post transplant but could not recall the name of the program. Patient has no current tobacco use. No previous need or recommendation for home health care services and no previous placements at [facility] facility and/or inpatient rehab program. Patient has [...] as appropriate. NUBIA Escalera, RONALDO Phone Number: [phone] * John Moreno MD - 10/26/2024 3:41 AM EDT SURGICAL ICU CONSULT NOTE 10/26/2024 3:41 AM Name: Blair Gilbert CSN: [id number] HPI: Blair Gilbert is a 39 y.o. [...] at 9:00 PM naloxone (NARCAN) 4 mg/actuation [place] Apply 1 spray in one nostril if [...] % 250 mL infusion 2.5 mcg/min (10/26/24 2159) insulin regular in 0.9 % sodium chloride norepinephrine 18 mcg/min (10/26/24 1288) vasopressin 0.04 Units/min (10/26/24 9207) PRN Meds: heparin (porcine) 5,000 unit/mL 10,000 [...] input(s): PHART , PCO2 , PO2ART , FRD7HHN , BEART in the last 72 hours. [...] at baseline or with provocation, shows no obnds-ac-ykst atrial level shunt. - Pulmonary arteries: Systolic [...] IV pantoprazole while intubated, NPO Last BM: BUSINESS CONTROLLER Bowel regimen: Senna/Miralax when able Nausea: Zofran PRN FLUID/ELECTROLYTES Recent Labs 10/25/24 2217 NA 137 K 2.1* CL 100 CO2 20* BUN 74* CREATININE 3.87* CALCIUM 9.3 PHOS 5.9* GLUCOSE 114* Intake/Output Summary (Last 24 hours) at 10/26/2024 0341 Last data filed at 10/26/2024 0326 Gross per 24 hour Intake 03071 ml Output 675 ml Net 51578 ml IV Fluids: EPINEPHrine (ADRENALIN) 10 mg [...] results for input(s): TEGANGLE , TEGKTIME , CUCXQCOM83 , TEGMAXAMPL , TEGRTIME , CBMZ in [...] in sodium chloride 0.9% 100 mL IVPB (Ybfo1Sws) 2 g Every 6 hours 10/26/2024 -- Admin Instructions: Use Nlpc0Acf Adapter - Mix Thoroughly Before Administration Notes to Pharmacy: On weight recorder estimated creatinine clearance is 35.9 mL/min (A) (based on SCr of 3.87 mg/dL (H)). Route: Intravenous AMPicillin 2 g in sodium chloride 0.9% 100 mL IVPB (Bqew3Vzx) 2 g Once 10/26/2024 -- Admin Instructions: Use Yxtd1Lfl Adapter - Mix Thoroughly Before Administration Notes to Pharmacy: On weight recorder estimated creatinine clearance is 35.9 mL/min (A) (based on SCr of 3.87 mg/dL (H)). Route: Intravenous cefTRIAXone (ROCEPHIN) 2 g in sodium chloride 0.9 % 100 mL Kihl9Vdh (Completed) 2 g Once 10/25/2024 10/26/2024 Admin Instructions: Use Bkvi2Xpd Adapter - Mix Thoroughly Before Administration Route: [...] R IJ Mac Arterial Line? R radial [place] Urinary Catheter? Berkowitz - Reason: Adequate I/O [...] 47 (H) 10/26/2024 PO2ART 127 (H) 10/26/2024 RHK7PXC 21 (L) 10/26/2024 BEART -5.4 (L) 10/26/2024 WOE4OGA 94.6 (L) 10/26/2024 H7UAYIIF 98 10/26/2024 P:F ratio = 363 CARDIOVASCULAR: [...] Acute Care Surgery, and Surgical Critical Care [facility] Academic Office [phone] For Transfers, call [phone] documented in this encounter Nursing Notes * [...] Progressing * Care Coordination - NUBIA Escalera, LITERACY EDUCATION PROFESSOR - 10/31/2024 11:34 AM EDT [facility] Case Management/Social Work Department Progress Note Patient Information Patient Name: Blair Gilbert Hospital day: 6 Inpatient/Observation: Inpatient Level of Care: Transplant Admit date: 10/25/2024 Admission diagnosis: Liver transplant recipient (CMS-HCC) [Z94.4] PMH: has a past medical history of Alcoholic cirrhosis of liver (CMS-HCC), Esophageal varices (CMS-HCC), Hepatorenal syndrome ([facility]), Hypertension, Other hyperlipidemia (07/26/2024), Renal cell carcinoma ([facility]), Thrombocytopenia ([facility]), and Thyroid disease. PCP: Enedina Mcguire NP Home Pharmacy: [facility] [address] [place] [address] [facility] [address] [facility] [address] [facility] [place] [address] [facility] [address] [place] [address] Medical Insurance Coverage: Payor: [employer] / Plan: [employer] / Product Type: *No Product type* / Other Pertinent Information SW received report from Transplant medical team. SW completed chart review. Per report patient is not medically ready to discharge. Patient recommended for home PT/OT and 2x weekly labs. SW followed up on [facility] referrals and submitted a few more C referrals. Update: MEREDITH made nurse educator aware that there were no accepting [facility] agencies([facility], [facility], [facility]) and patient would need to outpatient for PT/OT and labs. Discharge Plan Anticipated discharge plan: Home with HHC vs Home with outpatient Anticipated discharge date: 11/01 CM/SW will continue to follow and remain available for discharge planning needs. NUBIA Escalera, RONALDO Cell [phone] * Plan of Care - Paulette Flannery [...] Citlaly Nova - 10/29/2024 1:53 PM EDT [facility] Case Management/Social Work Department Progress Note [...] Enedina Mcguire NP Home Pharmacy: [facility] [address] [facility] [address] [place] [id number] [address] [address] [facility] [address] [facility] [address] [facility] [place] [address] [place] [address] [place] [id number] Medical Insurance Coverage: Payor: [employer] [...] SW submitted blanket HHC referral to [facility] [employer] [place], [facility] [place], [facility], and [facility]. Awaiting responses. SW to followpending [...] available for discharge planning needs. NUBIA Rhodes, LITERACY EDUCATION PROFESSOR Inpatient Gas Leak Tester/Care Coordination [phone] * Plan of Care - Soco Yap [...] Escalera LSW - 10/28/2024 2:29 PM EDT [facility] Case Management/Social Work Department Progress Note Patient Information Patient Name: Blair Gilbert Hospital day: 3 Inpatient/Observation: Inpatient Level of Care: Transplant Admit date: 10/25/2024 Admission diagnosis: Liver transplant recipient ([facility]) [Z94.4] PMH: has a past medical history of Alcoholic cirrhosis of liver (CMS-HCC), Esophageal varices (CMS-HCC), Hepatorenal syndrome (CMS-HCC), Hypertension, Other hyperlipidemia (07/26/2024), Renal cell carcinoma (CMS-HCC), Thrombocytopenia (CMS-HCC), and Thyroid disease. PCP: Enedina Mcgiure NP Home Pharmacy: [facility] [address] [place] [address] [address] [facility] [address] [facility] [address] [facility] [place] - [place] - [address] [place] [address] [place] [facility] [id number] Medical Insurance Coverage: Payor: [facility] / Plan: [employer] [facility] / Product Type: *No Product type* / Other Pertinent Information SW received report from Transplant medical team. SW completed chart review. Per report patient is not medically ready to discharge. PT/OT to assess once appropriate. Discharge Plan Anticipated discharge plan: Pending PT/OT Anticipated discharge date: 11/03 CM/SW will continue to follow and remain available for discharge planning needs. NUBIA Escalera, LITERACY EDUCATION PROFESSOR Cell [phone] * Plan of Care - Elaine Carrillo [...] at all times. Outcome: Completed Problem: Non-violent, cyk-izil-ctpvvpghxkf restraints Description: Less restrictive alternative interventions will [...] protection of medical procedures, or protection of phlebotomist medical lab assistant access. Outcome: Completed * Plan of [...] foods as appropriate. Outcome: Progressing Problem: Non-violent, mhj-cvms-kgtufxadjhs restraints Description: Less restrictive alternative interventions will [...] protection of medical procedures, or protection of phlebotomist medical lab assistant access. Outcome: Progressing * Plan of Care - Shanel Shen RN - 10/27/2024 9:00 AM EDT Problem: Non-violent, sdy-mmnl-utyogpezzuu restraints Description: Less restrictive alternative interventions will [...] - 10/26/2024 7:41 PM EDT Problem: Non-violent, iql-awcn-sxybqbxfzpi restraints Description: Less restrictive alternative interventions will [...] protection of medical procedures, or protection of phlebotomist medical lab assistant access. Outcome: Not Progressing Patient in [...] restraint flowsheet for further documentation. Problem: Non-violent, pmn-apde-egwczygkart restraints Description: Less restrictive alternative interventions will [...] protection of medical procedures, or protection of phlebotomist medical lab assistant access. Outcome: Progressing * Plan of [...] Description 12/05/2024 8:01 AM EDT Hospital Encounter [facility] ENDOSCOPY [address] [place] [address] Chris Orosco MD [address] [place] [phone] 12/05/2024 8:01 AM EDT - 12/05/2024 8:31 AM EDT Surgery [facility] ENDOSCOPY [address] [place] [address] Chris Orosco MD [address] [place] [phone] EGD Pending Results Name Type Priority Associated [...] Routine 10/31/2024 11:59 AM EDT US DUPLEX UKL-QRAJYS-TTELWXG COMPLETE Routine 10/31/2024 10:19 AM EDT US [...] Routine 10/28/2024 5:31 PM EDT US DUPLEX VXW-DQYBVS-WGOZKML COMPLETE STAT 10/28/2024 4:23 PM EDT US [...] Routine 10/27/2024 10:00 AM EDT US DUPLEX DCT-EFNHFV-MHKCTJK COMPLETE STAT 10/27/2024 9:51 AM EDT US [...] EDT Acute kidney injury superimposed on CKD ([facility]) IN RENAL ALTRNSPLJ IMPLTJ GRF W/TROUBLE SHOOTER NEPHRECTOMY 10/27/2024 2:32 AM EDT Acute kidney injury superimposed on CKD ([facility]) Special Needs 3rd crank from [...] - 100 mg/dL 11/02/2024 5:[address] [facility] Blood 11/02/2024 5:44 PM EDT 11/02/2024 5:45 PM EDT us Semaj Mcnair III, MD POINT OF CARE TEST ORDERABLES Final Result [facility] [address] [place] [address] * (ABNORMAL) POC Glucose Monitoring Device (11/02/2024 3:34 PM EDT) POC Glucose Monitoring Device 208(H) 70 - 100 mg/dL 11/02/2024 3:[address] [facility] Blood 11/02/2024 3:34 PM EDT 11/02/2024 3:35 PM EDT us Semaj Mcnair III, MD POINT OF CARE TEST ORDERABLES Final Result [facility] [address] * (ABNORMAL) POC Glucose Monitoring Device (11/02/2024 1:18 PM EDT) POC Glucose Monitoring Device 225(H) 70 - 100 mg/dL 11/02/2024 1:[address] [facility] Blood 11/02/2024 1:18 PM EDT 11/02/2024 1:19 PM EDT Semaj Mcnair III, MD POINT OF CARE TEST ORDERABLES Final Result Performing Organization Address City/[facility]/ZIP Co de Phone Number [facility] [address] [place] [address] * (ABNORMAL) POC Glucose Monitoring Device (11/02/2024 8:59 AM EDT) Pathologist [facility] POC Glucose Monitoring Device 129(H) 70 - 100 mg/dL 11/02/2024 9:00 AM EDT [facility] Blood 11/02/2024 8:59 AM EDT 11/02/2024 9:00 AM EDT Semaj Mcnair III, MD POINT OF CARE TEST ORDERABLES Final Result Performing Organization Address [facility] de Phone Number [address] * Tacrolimus level (11/02/2024 5:53 AM EDT) [facility] Tacrolimus (LC-MS) 7.4 3.0 - 15.0 ng/mL 11/02/2024 2:[address] [facility] Comment:Performed via liquid chromatography tandem mass spectrometry. Detection limit: 1 ng/mL. Individual target concentrations may vary due to target organ and time after transplant. This test has been developed and its performance characteristics determined by [facility] which is certified under the [...] PharmD LAB BLOOD ORDERABLES Denisse l Result [facility] [address] [place] [address], [facility] * (ABNORMAL) Renal Function Panel w/EGFR (11/02/2024 5:53 AM EDT) Sodium 140 133 - 146 mmol/L 11/02/2024 6:[address] [facility] Potassium 3.3(L) 3.5 - 5.3 mmol/L 11/02/2024 6:[address] [facility] Chloride 107 98 - 110 mmol/L 11/02/2024 6:[address] [facility] CO2 25 21 - 33 mmol/L 11/02/2024 6:[address] [facility] Anion Gap 8 3 - 16 mmol/L 11/02/2024 6:[address] [facility] BUN 31(H) 7 - 25 mg/dL 11/02/2024 6:[address] [facility] Creatinine 1.08 0.60 - 1.30 mg/dL 11/02/2024 6:[address] [facility] Glucose 150(H) 70 - 100 mg/dL 11/02/2024 6:[address] [facility] Calcium 7.8(L) 8.6 - 10.3 mg/dL 11/02/2024 6:[address] [facility] Phosphorus 2.0(L) 2.1 - 4.7 mg/dL 11/02/2024 6:[address] [facility] Albumin 3.2(L) 3.5 - 5.7 g/dL 11/02/2024 6:[address] [facility] Osmolality, Calculated 299 278 - 305 mOsm/kg 11/02/2024 6:[address] [facility] EGFR 88 11/02/2024 6:[address] [facility] Comment:As of 2021, the estimated [...] 11/02/2024 6:12 AM EDT Beata Dada Hor[facility] LAB BLOOD ORDERABLES Denisse l Result Performing Organization Address City/[facility]/ZIP Co de Phone Number [facility] [address] * (ABNORMAL) Magnesium (11/02/2024 5:53 AM EDT) Magnesium 1.3(L) 1.5 - 2.5 mg/dL 11/02/2024 6:[address] [facility] Plasma 11/02/2024 5:53 AM EDT 11/02/2024 6:[address] [facility] LAB BLOOD ORDERABLES Denisse l Result Performing Organization Address City/[facility]/ZIP Co de Phone Number [facility] [address] * (ABNORMAL) Hepatic Function Panel (11/02/2024 5:53 AM EDT) Total Bilirubin 1.6(H) 0.0 - 1.5 mg/dL 11/02/2024 6:[address] [facility] Bilirubin, Direct 0.81(H) 0.00 - 0.40 mg/dL 11/02/2024 6:[address] [facility] AST 30 13 - 39 U/L 11/02/2024 6:[address] [facility] ALT 66(H) 7 - 52 U/L 11/02/2024 6:[address] [facility] Alkaline Phosphatase 126(H) 36 - 125 U/L 11/02/2024 6:[address] [facility] Total Protein 4.6(L) 6.4 - 8.9 g/dL 11/02/2024 6:[address] [facility] Albumin 3.2(L) 3.5 - 5.7 g/dL 11/02/2024 6:[address] [facility] Bilirubin, Indirect 0.79 0.00 - 1.10 mg/dL 11/02/2024 6:[address] [facility] Plasma 11/02/2024 5:53 AM EDT 11/02/2024 6:12 AM EDT us Beata Horner [employer] SUPER[employer] LAB BLOOD ORDERABLES Denisse l Result Performing Organization Address City/State/[facility] Co de Phone Number [facility] [address] * (ABNORMAL) CBC (11/02/2024 5:53 AM EDT) WBC 5.8 3.8 - 10.8 10E3/uL 11/02/2024 6:[address] [facility] RBC 3.12(L) 4.20 - 5.80 10E6/uL 11/02/2024 6:[address] [facility] Hemoglobin 9.2(L) 13.2 - 17.1 g/dL 11/02/2024 6:[address] [facility] Hematocrit 27.5(L) 38.5 - 50.0 % 11/02/2024 6:[address] [facility] MCV 87.9 80.0 - 100.0 fL 11/02/2024 6:[address] [facility] MCH 29.5 27.0 - 33.0 pg 11/02/2024 6:[address] [facility] MCHC 33.5 32.0 - 36.0 g/dL 11/02/2024 6:[address] [facility] RDW 17.5(H) 11.0 - 15.0 % 11/02/2024 6:[address] [facility] Platelets 61(L) 140 - 400 10E3/uL 11/02/2024 6:[address] [facility] MPV 7.9 7.5 - 11.5 fL 11/02/2024 6:[address] [facility] Whole Blood 11/02/2024 5:53 AM EDT 11/02/2024 6:12 AM EDT Beata Horner [facility] LAB BLOOD ORDERABLES Denisse l Result [facility] [address] [facility]. [address] * (ABNORMAL) POC Glucose Monitoring Device (11/01/2024 9:26 PM EDT) POC Glucose Monitoring Device 199(H) 70 - 100 mg/dL 11/01/2024 9:27 PM EDT [facility] Blood 11/01/2024 9:26 PM EDT 11/01/2024 9:27 PM EDT Semaj Mcnair III, MD POINT OF CARE TEST ORDERABLES Final Result Performing Organization Address City/[facility]/ZIP Co de Phone Number [facility] [address] [facility]. [address] * (ABNORMAL) POC Glucose Monitoring Device (11/01/2024 5:04 PM EDT) POC Glucose Monitoring Device 255(H) 70 - 100 mg/dL 11/01/2024 5:[address] [facility] Blood 11/01/2024 5:04 PM EDT 11/01/2024 5:05 PM EDT Semaj Mcnair III, MD POINT OF CARE TEST ORDERABLES Final Result [facility] [address] [facility]. [address] * (ABNORMAL) Renal Function Panel w/EGFR, STAT (11/01/2024 2:17 PM EDT) Sodium 139 133 - 146 mmol/L 11/01/2024 3:[address] [facility] Potassium 3.3(L) 3.5 - 5.3 mmol/L 11/01/2024 3:[address] [facility] Chloride 107 98 - 110 mmol/L 11/01/2024 3:[address] [facility] CO2 24 21 - 33 mmol/L 11/01/2024 3:[address] [facility] Anion Gap 8 3 - 16 mmol/L 11/01/2024 3:[address] [facility] BUN 35(H) 7 - 25 mg/dL 11/01/2024 3:[address] [facility] Creatinine 1.22 0.60 - 1.30 mg/dL 11/01/2024 3:[address] [facility] Glucose 203(H) 70 - 100 mg/dL 11/01/2024 3:[address] [facility] Calcium 8.3(L) 8.6 - 10.3 mg/dL 11/01/2024 3:[address] [facility] Phosphorus 2.2 2.1 - 4.7 mg/dL 11/01/2024 3:[address] [facility] Albumin 3.4(L) 3.5 - 5.7 g/dL 11/01/2024 3:[address] [facility] Osmolality, Calculated 302 278 - 305 mOsm/kg 11/01/2024 3:[address] [facility] EGFR 76 11/01/2024 3:[address] [facility] Comment:As of 2021, the estimated [...] Marks MD LAB BLOOD ORDERABLES Final Result [facility] [address] [place] [address], [facility] * X-ray Portable Abdomen [...] - 100 mg/dL 11/01/2024 12:[address] [facility] Blood 11/01/2024 12:2 2 PM EDT 11/01/2024 12:23 PM EDT Semaj Mcnair III, MD POINT OF CARE TEST ORDERABLES Final Result Performing Organization Address [facility]/ZIP Co de Phone Number [facility] [address] [place] [address] * (ABNORMAL) POC Glucose Monitoring Device (11/01/2024 8:50 AM EDT) POC Glucose Monitoring Device 175(H) 70 - 100 mg/dL 11/01/2024 8:[address] [facility] Blood 11/01/2024 8:50 AM EDT 11/01/2024 8:51 AM EDT Semaj Mcnair III, MD POINT OF CARE TEST ORDERABLES Final Result Performing Organization Address [facility] Co de Phone Number [facility] [address] [place] [address] * Tacrolimus level (11/01/2024 6:01 AM EDT) Tacrolimus (LC-MS) 7.5 3.0 - 15.0 ng/mL 11/01/2024 12:14 PM EDT [facility] Comment:Performed via liquid chromatography tandem mass spectrometry. Detection limit: 1 ng/mL. Individual target concentrations may vary due to target organ and time after transplant. This test has been developed and its performance characteristics determined by [facility] which is certified under the [...] PharmD LAB BLOOD ORDERABLES Denisse valle Result [facility] [address] [facility] [place] [address], [facility] * (ABNORMAL) Renal Function Panel w/EGFR (11/01/2024 6:01 AM EDT) Sodium 139 133 - 146 mmol/L 11/01/2024 6:[address] [facility] Potassium 3.3(L) 3.5 - 5.3 mmol/L 11/01/2024 6:[address] [facility] Chloride 108 98 - 110 mmol/L 11/01/2024 6:[address] [facility] CO2 22 21 - 33 mmol/L 11/01/2024 6:[address] [facility] Anion Gap 9 3 - 16 mmol/L 11/01/2024 6:[address] [facility] BUN 37(H) 7 - 25 mg/dL 11/01/2024 6:[address] [facility] Creatinine 1.30 0.60 - 1.30 mg/dL 11/01/2024 6:[address] [facility] Glucose 163(H) 70 - 100 mg/dL 11/01/2024 6:[address] [facility] Calcium 8.2(L) 8.6 - 10.3 mg/dL 11/01/2024 6:[address] [facility] Phosphorus 2.9 2.1 - 4.7 mg/dL 11/01/2024 6:[address] [facility] Albumin 3.1(L) 3.5 - 5.7 g/dL 11/01/2024 6:[address] [facility] Osmolality, Calculated 300 278 - 305 mOsm/kg 11/01/2024 6:[address] [facility] EGFR 71 11/01/2024 6:[address] [facility] Comment:As of 2021, the estimated [...] 6:01 AM EDT 11/01/2024 6:20 AM EDT [email or web address] SUPERVISOR LAB BLOOD ORDERABLES Denisse l Result Performing Organization Address City/[facility]/ZIP Co de Phone Number [facility] [address] * Magnesium (11/01/2024 6:01 AM EDT) Magnesium 1.5 1.5 - 2.5 mg/dL 11/01/2024 6:[address] [facility] Plasma 11/01/2024 6:01 AM EDT 11/01/2024 6:20 AM EDT [email or web address] Evens [facility] LAB BLOOD ORDERABLES Denisse l Result [facility] [address] [place] [employer] [facility]. [address] * (ABNORMAL) Hepatic Function Panel (11/01/2024 6:01 AM EDT) Total Bilirubin 2.0(H) 0.0 - 1.5 mg/dL 11/01/2024 6:[address] [facility] Bilirubin, Direct 1.06(H) 0.00 - 0.40 mg/dL 11/01/2024 6:[address] [facility] AST 21 13 - 39 U/L 11/01/2024 6:[address] [facility] ALT 62(H) 7 - 52 U/L 11/01/2024 6:[address] [facility] Alkaline Phosphatase 114 36 - 125 U/L 11/01/2024 6:[address] [facility] Total Protein 4.6(L) 6.4 - 8.9 g/dL 11/01/2024 6:[address] [facility] Albumin 3.1(L) 3.5 - 5.7 g/dL 11/01/2024 6:[address] [facility] Bilirubin, Indirect 0.94 0.00 - 1.10 mg/dL 11/01/2024 6:[address] [facility] Plasma 11/01/2024 6:01 AM EDT 11/01/2024 6:20 AM EDT Beata Horner [facility] LAB BLOOD ORDERABLES Denisse l Result [facility] [address] [place] [employer] [facility]. [address] * (ABNORMAL) CBC (11/01/2024 6:01 AM EDT) WBC 5.9 3.8 - 10.8 10E3/uL 11/01/2024 6:[address] [facility] RBC 3.19(L) 4.20 - 5.80 10E6/uL 11/01/2024 6:[address] [facility] Hemoglobin 9.5(L) 13.2 - 17.1 g/dL 11/01/2024 6:[address] [facility] Hematocrit 27.8(L) 38.5 - 50.0 % 11/01/2024 6:[address] [facility] MCV 87.1 80.0 - 100.0 fL 11/01/2024 6:[address] [facility] MCH 29.9 27.0 - 33.0 pg 11/01/2024 6:[address] [facility] MCHC 34.3 32.0 - 36.0 g/dL 11/01/2024 6:[address] [facility] RDW 17.4(H) 11.0 - 15.0 % 11/01/2024 6:[address] [facility] Platelets 56(L) 140 - 400 10E3/uL 11/01/2024 6:[address] [facility] MPV 8.3 7.5 - 11.5 fL 11/01/2024 6:[address] [facility] Whole Blood 11/01/2024 6:01 AM EDT 11/01/2024 6:19 AM EDT us Beata Horner [facility] LAB BLOOD ORDERABLES Denisse l Result [facility] [address] * (ABNORMAL) POC Glucose Monitoring Device (10/31/2024 9:15 PM EDT) [facility] POC Glucose Monitoring Device 171(H) 70 - 100 mg/dL 10/31/2024 9:[address] [facility] Blood 10/31/2024 9:15 PM EDT 10/31/2024 9:15 PM EDT us Semaj Mcnair III, MD POINT OF CARE TEST ORDERABLES Final Result [facility] [address] * (ABNORMAL) POC Glucose Monitoring Device (10/31/2024 5:56 PM EDT) POC Glucose Monitoring Device 179(H) 70 - 100 mg/dL 10/31/2024 5:57 PM EDT [facility] Blood 10/31/2024 5:56 PM EDT 10/31/2024 5:57 PM EDT us Semaj Mcnair III, MD POINT OF CARE TEST ORDERABLES Final Result [facility] [address] [place] [address], [facility] * CT Abdomen and Pelvis [...] Findings of postsurgical changes in the left shinnecock kidney. Mild right hydronephrosis without an obstructive [...] Findings of postsurgical changes in the left shinnecock kidney. Mildright hydronephrosis without an obstructive course [...] QT: 400 ms QTc: 456 ms P [place]: 49 degrees R [place]: 3 degrees T [place]: 14 degrees Diagnosis Line: NORMAL SINUS RHYTHM ^ NORMAL ECG ^ ^ Confirmed by MD REID JAMES ([id number]) on 11/02/2024 6:56:52 AM Priti Geiger CNP ECG ORDERABLES Final Result M[facility] * (ABNORMAL) Urinalysis w/Rfl to Microscopic (10/31/2024 1:18 PM EDT) Color, UA Straw Yellow,Straw 10/31/2024 1:[address] [facility] Clarity, UA Clear Clear 10/31/2024 1:46 PM EDT [facility] Specific Himrod, UA 1.013 1.005 - 1.035 10/31/2024 1:[address] [facility] pH, UA 6.5 5.0 - 8.0 10/31/2024 1:46 PM EDT [facility] Protein, UA Negative Negative mg/dL 10/31/2024 1:[address] [facility] Glucose, UA Negative Negative mg/dL 10/31/2024 1:[address] [facility] Ketones, UA Negative Negative mg/dL 10/31/2024 1:[address] [facility] Bilirubin, UA Negative Negative 10/31/2024 1:[address] [facility] Blood, UA Large(A) Negative 10/31/2024 1:[address] [facility] Nitrite, UA Negative Negative 10/31/2024 1:[address] [facility] Urobilinogen, UA <2.0 0.2 - 1.9 mg/dL 10/31/2024 1:[address] [facility] Leukocyte Esterase, UA Negative Negative 10/31/2024 1:[address] [facility] RBC, UA >100(H) 0 - 3 /HPF 10/31/2024 1:[address] [facility] WBC, UA 3 0 - 5 /HPF 10/31/2024 1:[address] [facility] Hyaline Casts, UA 3(H) 0 - 2 /LPF 10/31/2024 1:[address] [facility] Urine 10/31/2024 1:18 PM EDT 10/31/2024 1:32 PM EDT Priti Geiger [facility] URINE ORDERABLES Final Result [facility] [address] * (ABNORMAL) Post Kidney Transplant Urine Culture (10/31/2024 1:18 PM EDT) Culture Result Enterococcus faecium, Vancomycin Resistant(A) [facility] Comment: 1,000- <10,000 cfu/mL Identified by [...] SARMAD >=32: Resistant Comment:See Results Priti Geiger STUD[employer] HALL SUPERVISOR MICROBIOLOGY - GENERAL ORDERA BLES Final Result [facility] [address] * (ABNORMAL) POC Glucose Monitoring Device (10/31/2024 11:59 AM EDT) POC Glucose Monitoring Device 130(H) 70 - 100 mg/dL 10/31/2024 12:[address] [facility] Blood 10/31/2024 11:5 9 AM EDT 10/31/2024 12:21 PM EDT Semaj Mcnair III, MD POINT OF CARE TEST ORDERABLES Final Result Performing Organization Address City/[facility]/ZIP Co de Phone Number [facility] [address] [place] [address] * US Abdomen Limited (10/31/2024 10:19 [...] EXAM: US ABDOMEN LIMITED EXAM: US DUPLEX [id number] COMPLETE INDICATION: Post-op liver transplant COMPARISON: None [...] visualized secondary to poor acoustic windows. The shinnecock right kidney measures 11.6 cm in length. [...] EXAM: US ABDOMEN LIMITED EXAM: US DUPLEX [id number] COMPLETE INDICATION: Post-op liver transplant COMPARISON: None [...] well visualized secondary to poor acousticwindows. The shinnecock right kidney measures 11.6 cm in length. [...] 10/31/2024 10:35 AM EDT us Beata Horner STUD[employer] HALL SUPERVISOR IMG US ORDERABLES Final R esult [...] 10/31/2024 10:29 AM EDT us Beata Horner [facility] IM US ORDERABLES Final R esult * US Duplex [id number] Comp (10/31/2024 10:19 AM EDT) Anatomical Region [...] EXAM: US ABDOMEN LIMITED EXAM: US DUPLEX [id number] COMPLETE INDICATION: Post-op liver transplant COMPARISON: None [...] visualized secondary to poor acoustic windows. The shinnecock right kidney measures 11.6 cm in length. [...] EXAM: US ABDOMEN LIMITED EXAM: US DUPLEX [id number] COMPLETE INDICATION: Post-op liver transplant COMPARISON: None [...] well visualized secondary to poor acousticwindows. The shinnecock right kidney measures 11.6 cm in length. [...] at 10/31/2024 10:35 AM EDT Beata Horner STUD[employer] HALL SUPERVISOR IMG US ORDERABLES Final R esult * ECG 12-lead (MUSE) (10/31/2024 8:57 AM EDT) 10/31/2024 8:57 AM EDT Narrative MUSE - 11/01/2024 9:21 AM EDT Ventricular Rate: 83 BPM Atrial Rate: 83 BPM P-R Interval: 168 ms QRS Duration: 102 ms QT: 392 ms QTc: 460 ms P [place]: 64 degrees R [place]: -18 degrees T [place]: 7 degrees Diagnosis Line: NORMAL SINUS RHYTHM ^ NORMAL ECG ^ ^ Confirmed by MD JOE, OTIS ([id number]) on 11/01/2024 9:21:13 AM Priti Geiger [employer] H[employer] SUPERVISOR ECG ORDERABLES Final Result [facility] * (ABNORMAL) POC Glucose Monitoring Device (10/31/2024 8:44 AM EDT) POC Glucose Monitoring Device 145(H) 70 - 100 mg/dL 10/31/2024 8:[address] [facility] Blood 10/31/2024 8:44 AM EDT 10/31/2024 8:44 AM EDT Semaj Mcnair III, MD POINT OF CARE TEST ORDERABLES Final Result Performing Organization Address City/[facility]/ZIP Co de Phone Number [facility] [address] [place] [address] * Tacrolimus level (10/31/2024 6:40 AM EDT) Tacrolimus (LC-MS) 8.4 3.0 - 15.0 ng/mL 10/31/2024 10:[address] [facility] Comment:Performed via liquid chromatography tandem mass spectrometry. Detection limit: 1 ng/mL. Individual target concentrations may vary due to target organ and time after transplant. This test has been developed and its performance characteristics determined by [facility] which is certified under the [...] PharmD LAB BLOOD ORDERABLES Denisse valle Result [facility] [address] [place] [address], [facility] * (ABNORMAL) Renal Function Panel w/EGFR (10/31/2024 6:40 AM EDT) Sodium 141 133 - 146 mmol/L 10/31/2024 8:[address] [facility] Potassium 3.5 3.5 - 5.3 mmol/L 10/31/2024 8:[address] [facility] Chloride 111(H) 98 - 110 mmol/L 10/31/2024 8:[address] [facility] CO2 20(L) 21 - 33 mmol/L 10/31/2024 8:[address] [facility] Anion Gap 10 3 - 16 mmol/L 10/31/2024 8:[address] [facility] BUN 54(H) 7 - 25 mg/dL 10/31/2024 8:[address] [facility] Creatinine 1.75(H) 0.60 - 1.30 mg/dL 10/31/2024 8:[address] [facility] Glucose 136(H) 70 - 100 mg/dL 10/31/2024 8:[address] [facility] Calcium 8.7 8.6 - 10.3 mg/dL 10/31/2024 8:[address] [facility] Phosphorus 4.1 2.1 - 4.7 mg/dL 10/31/2024 8:[address] [facility] Albumin 3.2(L) 3.5 - 5.7 g/dL 10/31/2024 8:[address] [facility] Osmolality, Calculated 309(H) 278 - 305 mOsm/kg 10/31/2024 8:[address] [facility] EGFR 50 10/31/2024 8:[address] [facility] Comment:As of 2021, the estimated [...] 6:40 AM EDT 10/31/2024 7:35 AM EDT [employer] BLOOD ORDERABLES Denisse l Result Performing Organization Address City/[facility]/ZIP Co de Phone Number [facility] [address] [facility]. [address] * Magnesium (10/31/2024 6:40 AM EDT) Magnesium 1.8 1.5 - 2.5 mg/dL 10/31/2024 8:[address] [facility] Plasma 10/31/2024 6:40 AM EDT 10/31/2024 7:35 AM EDT [email or web address] [facility] LAB BLOOD ORDERABLES Denisse l Result Performing Organization Address [facility]/State/ZIP Co de Phone Number [facility] [address] * (ABNORMAL) Hepatic Function Panel (10/31/2024 6:40 AM EDT) Total Bilirubin 2.7(H) 0.0 - 1.5 mg/dL 10/31/2024 8:[address] [facility] Bilirubin, Direct 1.57(H) 0.00 - 0.40 mg/dL 10/31/2024 8:[address] [facility] AST 26 13 - 39 U/L 10/31/2024 8:[address] [facility] ALT 68(H) 7 - 52 U/L 10/31/2024 8:[address] [facility] Alkaline Phosphatase 112 36 - 125 U/L 10/31/2024 8:[address] [facility] Total Protein 4.7(L) 6.4 - 8.9 g/dL 10/31/2024 8:[address] [facility] Albumin 3.2(L) 3.5 - 5.7 g/dL 10/31/2024 8:[address] [facility] Bilirubin, Indirect 1.13(H) 0.00 - 1.10 mg/dL 10/31/2024 8:[address] [facility] Plasma 10/31/2024 6:40 AM EDT 10/31/2024 7:35 AM EDT Beata Horner [employer] LAB BLOOD ORDERABLES Denisse valle Result [facility] [address] * (ABNORMAL) CBC (10/31/2024 6:40 AM EDT) Pathologist [facility] WBC 6.0 3.8 - 10.8 10E3/uL 10/31/2024 8:[address] [facility] RBC 3.14(L) 4.20 - 5.80 10E6/uL 10/31/2024 8:[address] [facility] Hemoglobin 9.6(L) 13.2 - 17.1 g/dL 10/31/2024 8:[address] [facility] Hematocrit 27.5(L) 38.5 - 50.0 % 10/31/2024 8:[address] [facility] MCV 87.6 80.0 - 100.0 fL 10/31/2024 8:[address] [facility] MCH 30.7 27.0 - 33.0 pg 10/31/2024 8:[address] [facility] MCHC 35.0 32.0 - 36.0 g/dL 10/31/2024 8:[address] [facility] RDW 17.9(H) 11.0 - 15.0 % 10/31/2024 8:[address] [facility] Platelets 44(L) 140 - 400 10E3/uL 10/31/2024 8:[address] [facility] Comment: CNV Specimen checked for clots. None detected. MPV 8.9 7.5 - 11.5 fL 10/31/2024 8:05 AM EDT [facility] Whole Blood 10/31/2024 6:40 AM EDT 10/31/2024 7:34 AM EDT us Beata Horner [facility] LAB BLOOD ORDERABLES Denisse l Result [facility] [address] * (ABNORMAL) POC Glucose Monitoring Device (10/30/2024 9:01 PM EDT) POC Glucose Monitoring Device 144(H) 70 - 100 mg/dL 10/30/2024 9:02 PM EDT [facility] Blood 10/30/2024 9:01 PM EDT 10/30/2024 9:01 PM EDT us Semaj Mcnair III, MD POINT OF CARE TEST ORDERABLES Final Result [facility] [address] * (ABNORMAL) POC Glucose Monitoring Device (10/30/2024 5:37 PM EDT) POC Glucose Monitoring Device 124(H) 70 - 100 mg/dL 10/30/2024 5:47 PM EDT [facility] Blood 10/30/2024 5:37 PM EDT 10/30/2024 5:47 PM EDT Semaj Mcnair III, MD POINT OF CARE TEST ORDERABLES Final Result Performing Organization Address [facility] Co de Phone Number [facility] [address] [place] [address] * (ABNORMAL) POC Glucose Monitoring Device (10/30/2024 7:26 AM EDT) POC Glucose Monitoring Device 150(H) 70 - 100 mg/dL 10/30/2024 7:27 AM EDT [facility] Blood 10/30/2024 7:26 AM EDT 10/30/2024 7:27 AM EDT Semaj Mcnair III, MD POINT OF CARE TEST ORDERABLES Final Result Performing Organization Address [facility] de Phone Number [facility]. [address] * Tacrolimus level (10/30/2024 7:13 AM EDT) Tacrolimus (LC-MS) 9.5 3.0 - 15.0 ng/mL 10/30/2024 2:[address] [facility] Comment:Performed via liquid chromatography tandem mass spectrometry. Detection limit: 1 ng/mL. Individual target concentrations may vary due to target organ and time after transplant. This test has been developed and its performance characteristics determined by [facility] which is certified under the [...] 7:13 AM EDT 10/30/2024 7:26 AM EDT [employer] LAB BLOOD ORDERABLES Final Re sult [facility] [address] [place] [address], [facility] * ECG 12-lead (MUSE) (10/30/2024 6:51 AM EDT) 10/30/2024 6:51 AM EDT Narrative MUSE - 11/01/2024 9:21 AM EDT Ventricular Rate: 92 BPM Atrial Rate: 92 BPM P-R Interval: 174 ms QRS Duration: 96 ms QT: 376 ms QTc: 464 ms P [place]: 54 degrees R [place]: -24 degrees T [place]: 11 degrees Diagnosis Line: NORMAL SINUS RHYTHM ^ NORMAL ECG ^ ^ Confirmed by MD JOE, KIMBERLYIIA ([id number]) on 11/01/2024 9:21:09 AM [email or web address]PER[employer] ECG ORDERABLES Final Result Performing Organization Address City/[facility]/ZIP Co de Phone Number MUSE * (ABNORMAL) Renal Function Panel w/EGFR (10/30/2024 5:41 AM EDT) Sodium 140 133 - 146 mmol/L 10/30/2024 6:[address] [facility] Potassium 3.8 3.5 - 5.3 mmol/L 10/30/2024 6:[address] [facility] Chloride 111(H) 98 - 110 mmol/L 10/30/2024 6:[address] [facility] CO2 17(L) 21 - 33 mmol/L 10/30/2024 6:[address] [facility] Anion Gap 12 3 - 16 mmol/L 10/30/2024 6:[address] [facility] BUN 62(H) 7 - 25 mg/dL 10/30/2024 6:[address] [facility] Creatinine 1.96(H) 0.60 - 1.30 mg/dL 10/30/2024 6:[address] [facility] Glucose 116(H) 70 - 100 mg/dL 10/30/2024 6:[address] [facility] Calcium 9.0 8.6 - 10.3 mg/dL 10/30/2024 6:[address] [facility] Phosphorus 4.6 2.1 - 4.7 mg/dL 10/30/2024 6:[address] [facility] Albumin 3.2(L) 3.5 - 5.7 g/dL 10/30/2024 6:[address] [facility] Osmolality, Calculated 309(H) 278 - 305 mOsm/kg 10/30/2024 6:[address] [facility] EGFR 43 10/30/2024 6:[address] [facility] Comment:As of 2021, the estimated [...] 5:41 AM EDT 10/30/2024 5:47 AM EDT [email or web address]PER[employer] LAB BLOOD ORDERABLES Denisse l Result [facility] [address] [place], [place] [address] * Magnesium (10/30/2024 5:41 AM EDT) Magnesium 2.2 1.5 - 2.5 mg/dL 10/30/2024 6:[address] [facility] Plasma 10/30/2024 5:41 AM EDT 10/30/2024 5:47 AM EDT [email or web address] [facility] LAB BLOOD ORDERABLES Denisse l Result [facility] [address] * (ABNORMAL) Hepatic Function Panel (10/30/2024 5:41 AM EDT) Total Bilirubin 3.6(H) 0.0 - 1.5 mg/dL 10/30/2024 6:[address] [facility] Bilirubin, Direct 1.95(H) 0.00 - 0.40 mg/dL 10/30/2024 6:[address] [facility] AST 33 13 - 39 U/L 10/30/2024 6:[address] [facility] ALT 71(H) 7 - 52 U/L 10/30/2024 6:[address] [facility] Alkaline Phosphatase 80 36 - 125 U/L 10/30/2024 6:[address] [facility] Total Protein 4.8(L) 6.4 - 8.9 g/dL 10/30/2024 6:[address] [facility] Albumin 3.2(L) 3.5 - 5.7 g/dL 10/30/2024 6:[address] [facility] Bilirubin, Indirect 1.65(H) 0.00 - 1.10 mg/dL 10/30/2024 6:[address] [facility] Plasma 10/30/2024 5:41 AM EDT 10/30/2024 5:47 AM EDT Beata Horner [facility] LAB BLOOD ORDERABLES Denisse l Result [facility] [address] [facility] [place] [address], [facility] * (ABNORMAL) CBC (10/30/2024 5:41 AM EDT) WBC 8.1 3.8 - 10.8 10E3/uL 10/30/2024 8:[address] [facility] RBC 3.29(L) 4.20 - 5.80 10E6/uL 10/30/2024 8:[address] [facility] Hemoglobin 10.1(L) 13.2 - 17.1 g/dL 10/30/2024 8:[address] [facility] Hematocrit 28.8(L) 38.5 - 50.0 % 10/30/2024 8:[address] [facility] MCV 87.6 80.0 - 100.0 fL 10/30/2024 8:[address] [facility] MCH 30.6 27.0 - 33.0 pg 10/30/2024 8:[address] [facility] MCHC 34.9 32.0 - 36.0 g/dL 10/30/2024 8:[address] [facility] RDW 18.1(H) 11.0 - 15.0 % 10/30/2024 8:[address] [facility] Platelets 44(L) 140 - 400 10E3/uL 10/30/2024 8:[address] [facility] Comment: CNV Specimen checked for clots. None detected. MPV 8.3 7.5 - 11.5 fL 10/30/2024 8:[address] [facility] Whole Blood 10/30/2024 5:41 AM EDT 10/30/2024 5:50 AM EDT us Beata Horner [facility] LAB BLOOD ORDERABLES Denisse l Result [facility] [address] * (ABNORMAL) POC Glucose Monitoring Device (10/29/2024 10:18 PM EDT) POC Glucose Monitoring Device 140(H) 70 - 100 mg/dL 10/29/2024 10:[address] [facility] Blood 10/29/2024 10:1 8 PM EDT 10/29/2024 10:18 PM EDT Semaj Mcnair III, MD POINT OF CARE TEST ORDERABLES Final Result [facility] [address] [facility]. [address] * (ABNORMAL) POC Glucose Monitoring Device (10/29/2024 6:42 PM EDT) POC Glucose Monitoring Device 152(H) 70 - 100 mg/dL 10/29/2024 6:[address] [facility] Blood 10/29/2024 6:42 PM EDT 10/29/2024 6:43 PM EDT Semaj Mcnair III, MD POINT OF CARE TEST ORDERABLES Final Result [address] * (ABNORMAL) POC Glucose Monitoring Device (10/29/2024 11:35 AM EDT) POC Glucose Monitoring Device 130(H) 70 - 100 mg/dL 10/29/2024 11:[address] [facility] Blood 10/29/2024 11:3 5 AM EDT 10/29/2024 11:36 AM EDT Semaj Mcnair III, MD POINT OF CARE TEST ORDERABLES Final Result [facility] [address] [place] [address]. [address] * ECG 12 lead (MUSE) (10/29/2024 9:34 AM EDT) 10/29/2024 9:34 AM EDT Narrative MUSE - 10/29/2024 10:34 PM EDT Ventricular Rate: 97 BPM Atrial Rate: 97 BPM P-R Interval: 186 ms QRS Duration: 104 ms QT: 382 ms QTc: 485 ms P [place]: 54 degrees R [place]: -21 degrees T [place]: 1 degrees Diagnosis Line: NORMAL SINUS RHYTHM ^ NORMAL ECG ^ Confirmed by JORGE MACIAS ([id number]) on 10/29/2024 10:34:50 PM Afshan Bear MD ECG ORDERABLES Final Result Performing Organization Address [facility] Co de Phone Number MUSE * Tacrolimus level (10/29/2024 8:08 AM EDT) Pathologist [facility] Tacrolimus (LC-MS) 10.4 3.0 - 15.0 ng/mL 10/29/2024 2:[address] [facility] Comment:Performed via liquid chromatography tandem mass spectrometry. Detection limit: 1 ng/mL. Individual target concentrations may vary due to target organ and time after transplant. This test has been developed and its performance characteristics determined by [facility] which is certified under the Clinical Laboratory [...] EDT 10/29/2024 8:21 AM EDT Priti Geiger [facility] LAB BLOOD ORDERABLES Final Re sult Performing Organization Address [facility] Co de Phone Number [facility] [address] * Prepare RBC, leukoreduced, 1 Units (10/29/2024 6:16 AM EDT) Product Code N5962N23 [facility] Unit Number [id number] [facility] Dispense Status Presumed Transfused_PT [facility] Blood Expiration Date [id number] HCLL Coding System [id number] [facility] Blood Bank Product Shay Plata MD BLOOD BANK PRODUCT O RDERABLES Final Result Performing Organization Address City/[facility] Co de Phone Number [facility] * Prepare RBC, leukoreduced, 1 Units (10/29/2024 6:15 AM EDT) Product Code V2042V27 [facility] Unit Number [id number] [facility]LL Dispense Status Presumed Transfused_PT [facility] Blood Expiration Date [id number] HCLL Coding System [id number] [facility] Blood Bank Product Carlos Marks MD BLOOD BANK PRODUCT ORDERABL ES Final Result [facility] * Prepare RBC, leukoreduced, 1 Units (10/29/2024 6:15 AM EDT) Product Code C4378X03 [facility] Unit Number [id number] [facility] Dispense Status Presumed Transfused_PT [facility] Blood Expiration Date [id number] HCLL Coding System [id number] [facility] Blood Bank Product John Moreno MD BLOOD BANK PRODUCT ORDERABLE S Final Result [facility] * (ABNORMAL) Renal Function Panel w/EGFR (10/29/2024 5:07 AM EDT) Sodium 144 133 - 146 mmol/L 10/29/2024 5:[address] [facility] Potassium 3.8 3.5 - 5.3 mmol/L 10/29/2024 5:[address] [facility] Chloride 113(H) 98 - 110 mmol/L 10/29/2024 5:[address] [facility] CO2 17(L) 21 - 33 mmol/L 10/29/2024 5:[address] [facility] Anion Gap 14 3 - 16 mmol/L 10/29/2024 5:[address] [facility] BUN 57(H) 7 - 25 mg/dL 10/29/2024 5:[address] [facility] Creatinine 1.93(H) 0.60 - 1.30 mg/dL 10/29/2024 5:[address] [facility] Glucose 110(H) 70 - 100 mg/dL 10/29/2024 5:[address] [facility] Calcium 9.3 8.6 - 10.3 mg/dL 10/29/2024 5:[address] [facility] Phosphorus 4.8(H) 2.1 - 4.7 mg/dL 10/29/2024 5:[address] [facility] Albumin 3.5 3.5 - 5.7 g/dL 10/29/2024 5:[address] [facility] Osmolality, Calculated 314(H) 278 - 305 mOsm/kg 10/29/2024 5:[address] [facility] EGFR 44 10/29/2024 5:[address] [facility] Comment:As of 2021, the estimated [...] EDT 10/29/2024 5:13 AM EDT Beata Horner [employer] SUPER[employer] LAB BLOOD ORDERABLES Denisse l Result [facility] [address] [place], [place] [address] * Magnesium (10/29/2024 5:07 AM EDT) Magnesium 2.1 1.5 - 2.5 mg/dL 10/29/2024 5:[address] [facility] Plasma 10/29/2024 5:07 AM EDT 10/29/2024 5:13 AM EDT [email or web address] Evens [employer] SUPER[employer] LAB BLOOD ORDERABLES Denisse l Result Performing Organization Address [facility]/ZIP Co de Phone Number [facility] [address] [facility]. [address] * (ABNORMAL) Hepatic Function Panel (10/29/2024 5:07 AM EDT) Total Bilirubin 4.2(H) 0.0 - 1.5 mg/dL 10/29/2024 5:[address] [facility] Bilirubin, Direct 2.85(H) 0.00 - 0.40 mg/dL 10/29/2024 5:[address] [facility] AST 31 13 - 39 U/L 10/29/2024 5:[address] [facility] ALT 88(H) 7 - 52 U/L 10/29/2024 5:[address] [facility] Alkaline Phosphatase 51 36 - 125 U/L 10/29/2024 5:[address] [facility] Total Protein 5.2(L) 6.4 - 8.9 g/dL 10/29/2024 5:[address] [facility] Albumin 3.5 3.5 - 5.7 g/dL 10/29/2024 5:[address] [facility] Bilirubin, Indirect 1.35(H) 0.00 - 1.10 mg/dL 10/29/2024 5:[address] [facility] Plasma 10/29/2024 5:07 AM EDT 10/29/2024 5:13 AM EDT Beata Horner [facility] LAB BLOOD ORDERABLES Denisse l Result Performing Organization Address [facility]/State/ZIP Co de Phone Number [facility] [address] [employer] [facility]. [address] * (ABNORMAL) CBC (10/29/2024 5:07 AM EDT) WBC 7.8 3.8 - 10.8 10E3/uL 10/29/2024 5:[address] [facility] RBC 3.05(L) 4.20 - 5.80 10E6/uL 10/29/2024 5:[address] [facility] Hemoglobin 9.0(L) 13.2 - 17.1 g/dL 10/29/2024 5:[address] [facility] Hematocrit 26.7(L) 38.5 - 50.0 % 10/29/2024 5:[address] [facility] MCV 87.4 80.0 - 100.0 fL 10/29/2024 5:[address] [facility] MCH 29.7 27.0 - 33.0 pg 10/29/2024 5:[address] [facility] MCHC 33.9 32.0 - 36.0 g/dL 10/29/2024 5:[address] [facility] RDW 18.3(H) 11.0 - 15.0 % 10/29/2024 5:[address] [facility] Platelets 41(L) 140 - 400 10E3/uL 10/29/2024 5:[address] [facility] Comment: CNV Specimen checked for clots. None detected. MPV 7.5 7.5 - 11.5 fL 10/29/2024 5:[address] [facility] Whole Blood 10/29/2024 5:07 AM EDT 10/29/2024 5:13 AM EDT Beata Horner [facility] LAB BLOOD ORDERABLES Denisse valle Result [facility] [address] [place] [id number], [facility] * (ABNORMAL) TEG-Bypass/ECMO/Liver HN (Factor function, Platelet/Fibrin Clot Strength w/Clot Breakdown, Heparinase In All Channels) (10/29/2024 5:07 AM EDT) Citrated Kaolin Reaction Time (TEGECMOLIVER) 8.9 4.6 - 9.1 minutes 10/29/2024 7:[address] [facility] Citrated Kaolin W/Heparinase Reaction Time (TEGECMOLIVER) 7.4 4.3 - 8.3 minutes 10/29/2024 7:[address] [facility] Citrated Kaolin Maximum Amplitude (TEGECMOLIVER) 52.9 52.0 - 69.0 mm 10/29/2024 7:[address] [facility] Citrated Functional Fibrinogen W/Heparinase Maximum Amplitude(TEGEC MOLIVER) 20.7 15.0 - 34.0 mm 10/29/2024 7:[address] [facility] Citrated Rapid Teg W/Heparinase Maximum Amplitude (TEGECMOLIVER) 49.7(L) 53.0 - 69.0 mm 10/29/2024 7:[address] [facility] Citrated Kaolin w/Heparinase Percent Lysis (TEGECMOLIVER) 0.0 0.0 - 3.2 % 10/29/2024 7:[address] [facility] Whole Blood (Citrate) 10/29/2024 5:07 AM EDT 10/29/2024 5:10 AM EDT Kemar Sahni MD LAB BLOOD ORDERABLES Final Result Performing Organization Address City/State/[facility] Co de Phone Number [facility] [address] * (ABNORMAL) TEG-Bypass/ECMO/Liver HN (Factor function, Platelet/Fibrin Clot Strength w/Clot Breakdown, Heparinase In All Channels) (10/28/2024 11:55 PM EDT) [facility] Citrated Kaolin Reaction Time (TEGECMOLIVER) 8.6 4.6 - 9.1 minutes 10/29/2024 2:[address] [facility] Citrated Kaolin W/Heparinase Reaction Time (TEGECMOLIVER) 8.7(H) 4.3 - 8.3 minutes 10/29/2024 2:[address] [facility] Citrated Kaolin Maximum Amplitude (TEGECMOLIVER) 47.9(L) 52.0 - 69.0 mm 10/29/2024 2:[address] [facility] Citrated Functional Fibrinogen W/Heparinase Maximum Amplitude(TEGEC MOLIVER) 22.0 15.0 - 34.0 mm 10/29/2024 2:[address] [facility] Citrated Rapid Teg W/Heparinase Maximum Amplitude (TEGECMOLIVER) 45.9(L) 53.0 - 69.0 mm 10/29/2024 2:[address] [facility] Citrated Kaolin w/Heparinase Percent Lysis (TEGECMOLIVER) 0.0 0.0 - 3.2 % 10/29/2024 2:[address] [facility] Whole Blood (Citrate) 10/28/2024 11:55 PM EDT 10/28/2024 11:58 PM EDT us Kemar Sahni MD LAB BLOOD ORDERABLES Final Result [facility] [address] [place] [address], [facility] * (ABNORMAL) CBC, STAT (10/28/2024 8:04 PM EDT) WBC 3.9 3.8 - 10.8 10E3/uL 10/28/2024 8:[address] [facility] RBC 2.66(L) 4.20 - 5.80 10E6/uL 10/28/2024 8:[address] [facility] Hemoglobin 8.0(L) 13.2 - 17.1 g/dL 10/28/2024 8:[address] [facility] Hematocrit 23.0(L) 38.5 - 50.0 % 10/28/2024 8:[address] [facility] MCV 86.4 80.0 - 100.0 fL 10/28/2024 8:[address] [facility] MCH 29.9 27.0 - 33.0 pg 10/28/2024 8:[address] [facility] MCHC 34.6 32.0 - 36.0 g/dL 10/28/2024 8:[address] [facility] RDW 18.6(H) 11.0 - 15.0 % 10/28/2024 8:[address] [facility] Platelets 29(L) 140 - 400 10E3/uL 10/28/2024 8:[address] [facility] Comment: CNV Specimen checked for clots. None detected. MPV 7.8 7.5 - 11.5 fL 10/28/2024 8:[address] [facility] Whole Blood 10/28/2024 8:04 PM EDT 10/28/2024 8:14 PM EDT Carlos Marks MD LAB BLOOD ORDERABLES Final Result [facility] [address] * (ABNORMAL) POC Glucose Monitoring Device (10/28/2024 8:03 PM EDT) POC Glucose Monitoring Device 122(H) 70 - 100 mg/dL 10/28/2024 8:04 PM EDT [facility] Blood 10/28/2024 8:03 PM EDT 10/28/2024 8:04 PM EDT Semaj Mcnair III, MD POINT OF CARE TEST ORDERABLES Final Result Performing Organization Address [facility] Co de Phone Number [facility] [address] * (ABNORMAL) TEG-Bypass/ECMO/Liver HN (Factor function, Platelet/Fibrin Clot Strength w/Clot Breakdown, Heparinase In All Channels) (10/28/2024 6:39 PM EDT) Citrated Kaolin Reaction Time (TEGECMOLIVER) 9.0 4.6 - 9.1 minutes 10/28/2024 7:[address] [facility] Citrated Kaolin W/Heparinase Reaction Time (TEGECMOLIVER) 8.3 4.3 - 8.3 minutes 10/28/2024 7:[address] [facility] Citrated Kaolin Maximum Amplitude (TEGECMOLIVER) 47.6(L) 52.0 - 69.0 mm 10/28/2024 7:[address] [facility] Citrated Functional Fibrinogen W/Heparinase Maximum Amplitude(TEGEC MOLIVER) 20.4 15.0 - 34.0 mm 10/28/2024 7:[address] [facility] Citrated Rapid Teg W/Heparinase Maximum Amplitude (TEGECMOLIVER) 44.0(L) 53.0 - 69.0 mm 10/28/2024 7:[address] [facility] Citrated Kaolin w/Heparinase Percent Lysis (TEGECMOLIVER) 0.0 0.0 - 3.2 % 10/28/2024 7:[address] [facility] Whole Blood (Citrate) 10/28/2024 6:39 PM EDT 10/28/2024 6:42 PM EDT us Kemar Sahni MD LAB BLOOD ORDERABLES Final Result Performing Organization Address [facility] Co de Phone Number [facility] [address] [facility]. [address] * (ABNORMAL) POC Glucose Monitoring Device (10/28/2024 5:31 PM EDT) [facility] POC Glucose Monitoring Device 130(H) 70 - 100 mg/dL 10/28/2024 5:[address] [facility] Blood 10/28/2024 5:31 PM EDT 10/28/2024 5:31 PM EDT us Semaj Mcnair III, MD POINT OF CARE TEST ORDERABLES Final Result Performing Organization Address [facility] Co de Phone Number [facility] [address] [facility]. [address] * Transfuse RBC Transfusion Rate: Per dept routine (10/28/2024 5:23 PM EDT) us Shay Plata MD NURSING TREATMENT OR DERABLES - BLOOD ADMIN Final Result Performing Organization Address City/[facility]/ZIP Co de Phone Number EXTERNAL * Transfuse RBC Transfusion Rate: Per dept routine, 1 Units (10/28/2024 5:23 PM EDT) us Shay Plata MD NURSING TREATMENT OR DERABLES - BLOOD ADMIN Final Result Performing Organization Address City/[facility]/ZIP Co de Phone Number EXTERNAL * US [...] EXAM: US ABDOMEN LIMITED EXAM: US DUPLEX [id number] COMPLETE INDICATION: Post-op liver transplant DATE: 10/28/2024 [...] retrohepatic inferior vena cava is patent. The [place] right kidney is partially visualized. A prominent [...] EXAM: US ABDOMEN LIMITED EXAM: US DUPLEX [id number] COMPLETE INDICATION: Post-op liver transplant DATE: 10/28/2024 [...] retrohepatic inferior vena cava is patent. The [place] right kidney is partially visualized. A prominent [...] ORDERABLES Fi nal Result * US Duplex [id number]-Sqp-[id number] Comp (10/28/2024 4:23 PM EDT) Anatomical Region [...] EXAM: US ABDOMEN LIMITED EXAM: US DUPLEX [id number] COMPLETE INDICATION: Post-op liver transplant DATE: 10/28/2024 [...] retrohepatic inferior vena cava is patent. The [place] right kidney is partially visualized. A prominent [...] EXAM: US ABDOMEN LIMITED EXAM: US DUPLEX [id number] COMPLETE INDICATION: Post-op liver transplant DATE: 10/28/2024 [...] retrohepatic inferior vena cava is patent. The [place] right kidney is partially visualized. A prominent [...] - 10.8 10E3/uL 10/28/2024 3:[address] [facility] RBC 2.44(L) 4.20 - 5.80 10E6/uL 10/28/2024 3:[address] [facility] Hemoglobin 7.5(L) 13.2 - 17.1 g/dL 10/28/2024 3:[address] [facility] Hematocrit 21.4(L) 38.5 - 50.0 % 10/28/2024 3:[address] [facility] MCV 87.6 80.0 - 100.0 fL 10/28/2024 3:[address] [facility] MCH 30.6 27.0 - 33.0 pg 10/28/2024 3:[address] [facility] MCHC 34.9 32.0 - 36.0 g/dL 10/28/2024 3:[address] [facility] RDW 18.4(H) 11.0 - 15.0 % 10/28/2024 3:[address] [facility] Platelets 30(L) 140 - 400 10E3/uL 10/28/2024 3:[address] [facility] Comment: CNV Specimen checked for clots. None detected. MPV 7.7 7.5 - 11.5 fL 10/28/2024 3:[address] [facility] Whole Blood 10/28/2024 2:49 PM EDT 10/28/2024 2:53 PM EDT Carlos Marks MD LAB BLOOD ORDERABLES Final Result Performing Organization Address [facility] Co de Phone Number [facility] [address] * ECG 12 lead (MUSE) (10/28/2024 1:22 PM EDT) 10/28/2024 1:22 PM EDT Narrative MUSE - 10/29/2024 10:34 PM EDT Ventricular Rate: 104 BPM Atrial Rate: 104 BPM P-R Interval: 172 ms QRS Duration: 90 ms QT: 354 ms QTc: 465 ms P [place]: 58 degrees R [place]: -19 degrees T [place]: 38 degrees Diagnosis Line: SINUS TACHYCARDIA ^ OTHERWISE NORMAL ECG ^ ^ Confirmed by JORGE MACIAS ([id number]) on 10/29/2024 10:34:22 PM Hillary Fernandes PharmD ECG ORDERABLES Final Res ult Performing Organization Address [facility] de Phone Number MUSE * (ABNORMAL) POC Glucose Monitoring Device (10/28/2024 12:54 PM EDT) [facility] POC Glucose Monitoring Device 119(H) 70 - 100 mg/dL 10/28/2024 12:55 PM EDT [facility] Blood 10/28/2024 12:5 4 PM EDT 10/28/2024 12:55 PM EDT Semaj Mcnair III, MD POINT OF CARE TEST ORDERABLES Final Result Performing Organization Address [facility] Co de Phone Number [facility] [address] [place] [address], [facility] * Transfuse RBC Transfusion Rate: Per dept routine (10/28/2024 12:31 PM EDT) Carlos Marks MD NURSING TREATMENT ORDERABLE S - BLOOD ADMIN Final Result Performing Organization Address [facility] Co de Phone Number EXTERNAL * Transfuse RBC Transfusion Rate: Per dept routine, 1 Units (10/28/2024 12:31 PM EDT) us Carlos Marks MD NURSING TREATMENT ORDERABLE S - BLOOD ADMIN Final Result EXTERNAL * Protime-INR, STAT (10/28/2024 11:09 AM EDT) Protime 14.3 12.1 - 15.1 seconds 10/28/2024 11:[address] [facility] INR 1.1 0.9 - 1.1 10/28/2024 11:[address] [facility] Comment: RECOMMENDED THERAPEUTIC RANGES USING INR : Stable oral anticoagulant therapy: 2.0 - 3.0 Mechanical prosthetic heart valve: 2.5 - 3.5 Recurrent acute myocardial infarction: 2.5 - 3.5 Plasma 10/28/2024 11:0 9 AM EDT 10/28/2024 11:16 AM EDT us Carlos Marks MD LAB BLOOD ORDERABLES Final Result Performing Organization Address [facility] de Phone Number [facility] [address] * (ABNORMAL) Lactic Acid, STAT (10/28/2024 11:09 AM EDT) Lactate 0.3(L) 0.5 - 2.2 mmol/L 10/28/2024 11:[address] [facility] Plasma 10/28/2024 11:0 9 AM EDT 10/28/2024 11:15 AM EDT us Carlos Marks MD LAB BLOOD ORDERABLES Final Result Performing Organization Address City/[facility]/ZIP Co de Phone Number [facility] [address] * Magnesium, STAT (10/28/2024 11:09 AM EDT) Magnesium 2.1 1.5 - 2.5 mg/dL 10/28/2024 11:[address] [facility] Plasma 10/28/2024 11:0 9 AM EDT 10/28/2024 11:16 AM EDT Carlos Marks MD LAB BLOOD ORDERABLES Final Result [facility] [address] [place] [id number], [facility] * (ABNORMAL) Renal Function Panel w/EGFR, STAT (10/28/2024 11:09 AM EDT) Sodium 144 133 - 146 mmol/L 10/28/2024 11:[address] [facility] Potassium 3.4(L) 3.5 - 5.3 mmol/L 10/28/2024 11:[address] [facility] Chloride 112(H) 98 - 110 mmol/L 10/28/2024 11:[address] [facility] CO2 22 21 - 33 mmol/L 10/28/2024 11:[address] [facility] Anion Gap 10 3 - 16 mmol/L 10/28/2024 11:[address] [facility] BUN 57(H) 7 - 25 mg/dL 10/28/2024 11:[address] [facility] Creatinine 2.01(H) 0.60 - 1.30 mg/dL 10/28/2024 11:[address] [facility] Glucose 108(H) 70 - 100 mg/dL 10/28/2024 11:[address] [facility] Calcium 8.8 8.6 - 10.3 mg/dL 10/28/2024 11:[address] [facility] Phosphorus 4.0 2.1 - 4.7 mg/dL 10/28/2024 11:[address] [facility] Albumin 3.3(L) 3.5 - 5.7 g/dL 10/28/2024 11:[address] [facility] Osmolality, Calculated 314(H) 278 - 305 mOsm/kg 10/28/2024 11:[address] [facility] EGFR 42 10/28/2024 11:[address] [facility] Comment:As of 2021, the estimated [...] Marks MD LAB BLOOD ORDERABLES Final Result [facility] [address] * (ABNORMAL) TEG-Bypass/ECMO/Liver HN (Factor function, Platelet/Fibrin Clot Strength w/Clot Breakdown, Heparinase In All Channels) (10/28/2024 11:09 AM EDT) [facility] Citrated Kaolin Reaction Time (TEGECMOLIVER) 9.2(H) 4.6 - 9.1 minutes 10/28/2024 12:[address] [facility] Citrated Kaolin W/Heparinase Reaction Time (TEGECMOLIVER) 9.6(H) 4.3 - 8.3 minutes 10/28/2024 12:[address] [facility] Citrated Kaolin Maximum Amplitude (TEGECMOLIVER) 51.2(L) 52.0 - 69.0 mm 10/28/2024 12:[address] [facility] Citrated Functional Fibrinogen W/Heparinase Maximum Amplitude(TEGEC MOLIVER) 21.6 15.0 - 34.0 mm 10/28/2024 12:[address] [facility] Citrated Rapid Teg W/Heparinase Maximum Amplitude (TEGECMOLIVER) 49.3(L) 53.0 - 69.0 mm 10/28/2024 12:[address] [facility] Citrated Kaolin w/Heparinase Percent Lysis (TEGECMOLIVER) 0.0 0.0 - 3.2 % 10/28/2024 12:[address] [facility] Whole Blood (Citrate) 10/28/2024 11:09 AM EDT 10/28/2024 11:14 AM EDT us Kemar Sahni MD LAB BLOOD ORDERABLES Final Result [facility] [address] [place], [place] [address] * (ABNORMAL) CBC (10/28/2024 10:21 AM EDT) WBC 4.1 3.8 - 10.8 10E3/uL 10/28/2024 10:[address] [facility] RBC 2.30(L) 4.20 - 5.80 10E6/uL 10/28/2024 10:[address] [facility] Hemoglobin 7.1(L) 13.2 - 17.1 g/dL 10/28/2024 10:[address] [facility] Hematocrit 20.4(L) 38.5 - 50.0 % 10/28/2024 10:[address] [facility] MCV 88.5 80.0 - 100.0 fL 10/28/2024 10:[address] [facility] MCH 30.7 27.0 - 33.0 pg 10/28/2024 10:[address] [facility] MCHC 34.7 32.0 - 36.0 g/dL 10/28/2024 10:[address] [facility] RDW 18.7(H) 11.0 - 15.0 % 10/28/2024 10:[address] [facility] Platelets 37(L) 140 - 400 10E3/uL 10/28/2024 10:[address] [facility] Comment: CNV Specimen checked for clots. None detected. MPV 7.6 7.5 - 11.5 fL 10/28/2024 10:[address] [facility] Whole Blood 10/28/2024 10:2 1 AM EDT 10/28/2024 10:29 AM EDT Carlos Marks MD LAB BLOOD ORDERABLES Final Result Performing Organization Address [facility]/ZIP Co de Phone Number [facility] [address] * POC Glucose Monitoring Device (10/28/2024 9:07 AM EDT) POC Glucose Monitoring Device 97 70 - 100 mg/dL 10/28/2024 9:08 AM EDT [facility] Blood 10/28/2024 9:07 AM EDT 10/28/2024 9:08 AM EDT Semaj Mcnair III, MD POINT OF CARE TEST ORDERABLES Final Result Performing Organization Address [facility] de Phone Number [facility] [address] * (ABNORMAL) Tacrolimus level (10/28/2024 8:20 AM EDT) Tacrolimus (LC-MS) <1.0(L) 3.0 - 15.0 ng/mL 10/28/2024 2:[address] [facility] Comment:Performed via liquid chromatography tandem mass spectrometry. Detection limit: 1 ng/mL. Individual target concentrations may vary due to target organ and time after transplant. This test has been developed and its performance characteristics determined by [facility] which is certified under the [...] EDT 10/28/2024 8:29 AM EDT Priti Geiger [facility] BLOOD ORDERABLES Final Re sult Performing Organization Address [facility] Co de Phone Number [facility] [address] [facility]. [address] * (ABNORMAL) POC Glucose Monitoring Device (10/28/2024 8:10 AM EDT) POC Glucose Monitoring Device 102(H) 70 - 100 mg/dL 10/28/2024 8:[address] [facility] Blood 10/28/2024 8:10 AM EDT 10/28/2024 8:11 AM EDT Semaj Mcnair III, MD POINT OF CARE TEST ORDERABLES Final Result Performing Organization Address [facility] Co de Phone Number [facility] [address] [facility] * POC Glucose Monitoring Device (10/28/2024 6:17 AM EDT) POC Glucose Monitoring Device 100 70 - 100 mg/dL 10/28/2024 6:18 AM EDT [facility] Blood 10/28/2024 6:17 AM EDT 10/28/2024 6:18 AM EDT Semaj Mcnair III, MD POINT OF CARE TEST ORDERABLES Final Result Performing Organization Address [facility] Co de Phone Number [facility] [address] [facility] * Prepare Platelets, leukoreduced (10/28/2024 6:15 AM EDT) Product Code E2395G91 HCLL Unit Number [id number] HCLL Dispense Status Presumed Transfused_PT HCLL Blood Expiration Date HCLL Coding System [id number] HCLL Product Code U8552U17 HCLL Unit Number [id number] HCLL Dispense Status Presumed Transfused_PT HCLL Blood Expiration Date HCLL Coding System [id number] HCLL us Attending Provider Unknown BLOOD BANK PRODUCT OR DERABLES Final Result Performing Organization Address [facility] de Phone Number HCLL * Prepare Fresh Frozen Plasma (10/28/2024 6:15 AM EDT) Product Code A6312B79 HCLL Unit Number [id number] HCLL Dispense Status Released from Crossmatch_RE HCLL Blood Expiration Date HCLL Coding System [id number] HCLL Product Code S5455S88 HCLL Unit Number [id number] HCLL Dispense Status Presumed Transfused_PT HCLL Blood Expiration Date HCLL Coding System [id number] HCLL Product Code S1561X18 HCLL Unit Number [id number] HCLL Dispense Status Released from Crossmatch_RE HCLL Blood Expiration Date HCLL Coding System [id number] HCLL Product Code T5552P63 HCLL Unit Number [id number] HCLL Dispense Status Presumed Transfused_PT HCLL Blood Expiration Date HCLL Coding System JZWD327 HCLL Product Code N9486S07 HCLL Unit Number [id number] HCLL Dispense Status Released from Crossmatch_RE HCLL Blood Expiration Date [id number] HCLL Coding System [id number] HCLL us Attending Provider Unknown BLOOD BANK PRODUCT OR DERABLES Final Result Performing Organization Address City/[facility] Co de Phone Number HCLL * Prepare RBC, leukoreduced (10/28/2024 6:15 AM EDT) Product Code T9810R10 HCLL Unit Number [id number] HCLL Dispense Status Released from Crossmatch_RE HCLL Blood Expiration Date [id number] HCLL Coding System [id number] HCLL Product Code T5194F35 HCLL Unit Number [id number] HCLL Dispense Status Presumed Transfused_PT HCLL Blood Expiration Date 837228407323 HCLL Coding System [id number] HCLL Product Code P4755Y70 HCLL Unit Number [id number] HCLL Dispense Status Released from Crossmatch_RE HCLL Blood Expiration Date 515570636871 HCLL Coding System BOAL490 HCLL Product Code V4262D00 HCLL Unit Number [id number] HCLL Dispense Status Presumed Transfused_PT HCLL Blood Expiration Date 651831754794 HCLL Coding System SBVY895 HCLL Product Code A2686S17 HCLL Unit Number [id number] HCLL Dispense Status Released from Crossmatch_RE HCLL Blood Expiration Date 010892941138 HCLL Coding System [id number] HCLL us Attending Provider Unknown BLOOD BANK PRODUCT OR DERABLES Final Result Performing Organization Address [facility]/ZIP Co de Phone Number HCLL * Prepare Platelets, leukoreduced, 1 Units (10/28/2024 6:15 AM EDT) Product Code J2803V10 HCLL Unit Number [id number] HCLL Dispense Status Presumed Transfused_PT HCLL Blood Expiration Date 827489291842 HCLL Coding System XIZS806 HCLL Blood Bank Product us John Pina MD BLOOD BANK PRODUCT ORDERABLES F inal Result HCLL * Prepare Cryoprecipitate, 1 Units (10/28/2024 6:15 AM EDT) Product Code L7015R10 HCLL Unit Number [id number] HCLL Dispense Status Presumed Transfused_PT HCLL Blood Expiration Date HCLL Coding System [id number] HCLL Product Code Y9406X66 HCLL Unit Number [id number] HCLL Dispense Status Presumed Transfused_PT HCLL Blood Expiration Date HCLL Coding System SLYG102 HCLL Blood Bank Product John Pina MD BLOOD BANK PRODUCT ORDERABLES F inal Result Performing Organization Address [facility] de Phone Number HCLL * Prepare Fresh Frozen Plasma, 1 Units (10/28/2024 6:15 AM EDT) Product Code P5107X18 HCLL Unit Number [id number] HCLL Dispense Status Presumed Transfused_PT HCLL Blood Expiration Date 400830335446 HCLL Coding System [id number] HCLL Blood Bank Product John Pina MD BLOOD BANK PRODUCT ORDERABLES F inal Result Performing Organization Address [facility] Phone Number HCLL * Prepare Cryoprecipitate, 1 Units (10/28/2024 6:15 AM EDT) Product Code E6897M54 HCLL Unit Number [id number] HCLL Dispense Status Presumed Transfused_PT HCLL Blood Expiration Date 719845380178 HCLL Coding System FRZQ223 HCLL Product Code W4127R05 HCLL Unit Number [id number] HCLL Dispense Status Presumed Transfused_PT HCLL Blood Expiration Date 739183728615 HCLL Coding System KPKG761 HCLL Product Code P6505C00 HCLL Unit Number [id number] HCLL Dispense Status Presumed Transfused_PT HCLL Blood Expiration Date HCLL Coding System WMOU561 HCLL Product Code U2642J99 HCLL Unit Number [id number] HCLL Dispense Status Presumed Transfused_PT HCLL Blood Expiration Date 241470565040 HCLL Coding System [id number] HCLL Blood Bank Product John Pina MD BLOOD BANK PRODUCT ORDERABLES F inal Result Performing Organization Address [facility] de Phone Number HCLL * (ABNORMAL) POC Glucose Monitoring Device (10/28/2024 4:55 AM EDT) POC Glucose Monitoring Device 104(H) 70 - 100 mg/dL 10/28/2024 4:[address] [facility] Blood 10/28/2024 4:55 AM EDT 10/28/2024 4:57 AM EDT Semaj Mcnair III, MD POINT OF CARE TEST ORDERABLES Final Result [facility] [address] [place] [address], [facility] * TEG-Bypass/ECMO/Liver HN (Factor function, Platelet/Fibrin Clot Strength w/Clot Breakdown, Heparinase In All Channels) (10/28/2024 4:13 AM EDT) Citrated Kaolin Reaction Time (TEGECMOLIVER) 7.2 4.6 - 9.1 minutes 10/28/2024 5:[address] [facility] Citrated Kaolin W/Heparinase Reaction Time (TEGECMOLIVER) 7.8 4.3 - 8.3 minutes 10/28/2024 5:[address] [facility] Citrated Kaolin Maximum Amplitude (TEGECMOLIVER) 53.0 52.0 - 69.0 mm 10/28/2024 5:[address] [facility] Citrated Functional Fibrinogen W/Heparinase Maximum Amplitude(TEGEC MOLIVER) 21.4 15.0 - 34.0 mm 10/28/2024 5:[address] [facility] Citrated Rapid Teg W/Heparinase Maximum Amplitude (TEGECMOLIVER) 54.7 53.0 - 69.0 mm 10/28/2024 5:[address] [facility] Citrated Kaolin w/Heparinase Percent Lysis (TEGECMOLIVER) 0.0 0.0 - 3.2 % 10/28/2024 5:[address] [facility] Whole Blood (Citrate) 10/28/2024 4:13 AM EDT 10/28/2024 4:28 AM EDT Kemar Sahni MD LAB BLOOD ORDERABLES Final Result Performing Organization Address City/[facility] Co de Phone Number [facility] [address] [place] [employer] [facility]. [address] * Protime-INR (10/28/2024 4:13 AM EDT) Protime 14.6 12.1 - 15.1 seconds 10/28/2024 4:[address] [facility] INR 1.1 0.9 - 1.1 10/28/2024 4:[address] [facility] Comment: RECOMMENDED THERAPEUTIC RANGES USING INR : Stable oral anticoagulant therapy: 2.0 - 3.0 Mechanical prosthetic heart valve: 2.5 - 3.5 Recurrent acute myocardial infarction: 2.5 - 3.5 Plasma 10/28/2024 4:13 AM EDT 10/28/2024 4:41 AM EDT Kemar Sahni MD LAB BLOOD ORDERABLES Final Result Performing Organization Address [facility] Co de Phone Number [facility] [address] [facility]. [address] * Magnesium (10/28/2024 4:13 AM EDT) Magnesium 2.2 1.5 - 2.5 mg/dL 10/28/2024 5:[address] [facility] Plasma 10/28/2024 4:13 AM EDT 10/28/2024 4:41 AM EDT Kemar Sahni MD LAB BLOOD ORDERABLES Final Result Performing Organization Address City/State/[facility] Co de Phone Number [facility] [address] [facility] * (ABNORMAL) Hepatic Function Panel (10/28/2024 4:13 AM EDT) Total Bilirubin 2.3(H) 0.0 - 1.5 mg/dL 10/28/2024 5:[address] [facility] Bilirubin, Direct 1.67(H) 0.00 - 0.40 mg/dL 10/28/2024 5:[address] [facility] AST 44(H) 13 - 39 U/L 10/28/2024 5:[address] [facility] ALT 101(H) 7 - 52 U/L 10/28/2024 5:[address] [facility] Alkaline Phosphatase 26(L) 36 - 125 U/L 10/28/2024 5:[address] [facility] Total Protein 4.5(L) 6.4 - 8.9 g/dL 10/28/2024 5:[address] [facility] Albumin 3.1(L) 3.5 - 5.7 g/dL 10/28/2024 5:[address] [facility] Bilirubin, Indirect 0.63 0.00 - 1.10 mg/dL 10/28/2024 5:[address] [facility] Plasma 10/28/2024 4:13 AM EDT 10/28/2024 4:41 AM EDT us Kemar Sahni MD LAB BLOOD ORDERABLES Final Result [facility] [address] [place] [id number], [facility] * (ABNORMAL) Renal Function Panel w/EGFR (10/28/2024 4:13 AM EDT) Sodium 142 133 - 146 mmol/L 10/28/2024 5:[address] [facility] Potassium 3.5 3.5 - 5.3 mmol/L 10/28/2024 5:[address] [facility] Chloride 111(H) 98 - 110 mmol/L 10/28/2024 5:[address] [facility] CO2 22 21 - 33 mmol/L 10/28/2024 5:[address] [facility] Anion Gap 9 3 - 16 mmol/L 10/28/2024 5:[address] [facility] BUN 58(H) 7 - 25 mg/dL 10/28/2024 5:[address] [facility] Creatinine 2.24(H) 0.60 - 1.30 mg/dL 10/28/2024 5:[address] [facility] Glucose 103(H) 70 - 100 mg/dL 10/28/2024 5:[address] [facility] Calcium 9.1 8.6 - 10.3 mg/dL 10/28/2024 5:[address] [facility] Phosphorus 4.8(H) 2.1 - 4.7 mg/dL 10/28/2024 5:[address] [facility] Albumin 3.1(L) 3.5 - 5.7 g/dL 10/28/2024 5:[address] [facility] Osmolality, Calculated 310(H) 278 - 305 mOsm/kg 10/28/2024 5:[address] [facility] EGFR 37 10/28/2024 5:[address] [facility] Comment:As of 2021, the estimated [...] MD LAB BLOOD ORDERABLES Final Result [facility] [id number] [id number], [facility] * (ABNORMAL) CBC (10/28/2024 4:13 AM EDT) WBC 4.5 3.8 - 10.8 10E3/uL 10/28/2024 5:[address] [facility] RBC 2.39(L) 4.20 - 5.80 10E6/uL 10/28/2024 5:[address] [facility] Hemoglobin 7.3(L) 13.2 - 17.1 g/dL 10/28/2024 5:[address] [facility] Hematocrit 21.0(L) 38.5 - 50.0 % 10/28/2024 5:[address] [facility] MCV 87.8 80.0 - 100.0 fL 10/28/2024 5:[address] [facility] MCH 30.5 27.0 - 33.0 pg 10/28/2024 5:[address] [facility] MCHC 34.7 32.0 - 36.0 g/dL 10/28/2024 5:[address] [facility] RDW 18.7(H) 11.0 - 15.0 % 10/28/2024 5:[address] [facility] Platelets 38(L) 140 - 400 10E3/uL 10/28/2024 5:[address] [facility] Comment: CNV Specimen checked for clots. None detected. MPV 7.6 7.5 - 11.5 fL 10/28/2024 5:[address] [facility] Whole Blood 10/28/2024 4:13 AM EDT 10/28/2024 4:41 AM EDT us Kemar Sahni MD LAB BLOOD ORDERABLES Final Result [facility] [address] [place] [address], [facility] * (ABNORMAL) POC Glucose Monitoring Device (10/28/2024 4:04 AM EDT) POC Glucose Monitoring Device 103(H) 70 - 100 mg/dL 10/28/2024 4:[address] [facility] Blood 10/28/2024 4:04 AM EDT 10/28/2024 4:05 AM EDT Semaj Mcnair III, MD POINT OF CARE TEST ORDERABLES Final Result Performing Organization Address [facility] Co de Phone Number [facility] [address] [facility]. [address] * (ABNORMAL) POC Glucose Monitoring Device (10/28/2024 3:00 AM EDT) POC Glucose Monitoring Device 106(H) 70 - 100 mg/dL 10/28/2024 3:[address] [facility] Blood 10/28/2024 3:00 AM EDT 10/28/2024 3:01 AM EDT Semaj Mcnair III, MD POINT OF CARE TEST ORDERABLES Final Result Performing Organization Address [facility] Co de Phone Number [facility] [address] [facility]. [address] * (ABNORMAL) POC Glucose Monitoring Device (10/28/2024 2:32 AM EDT) POC Glucose Monitoring Device 109(H) 70 - 100 mg/dL 10/28/2024 2:[address] [facility] Blood 10/28/2024 2:32 AM EDT 10/28/2024 2:33 AM EDT Semaj Mcnair III, MD POINT OF CARE TEST ORDERABLES Final Result Performing Organization Address [facility] Co de Phone Number [facility] [address] [place] [address]. [address] * (ABNORMAL) POC Glucose Monitoring Device (10/28/2024 2:14 AM EDT) POC Glucose Monitoring Device 115(H) 70 - 100 mg/dL 10/28/2024 2:[address] [facility] Blood 10/28/2024 2:14 AM EDT 10/28/2024 2:15 AM EDT Semaj Mcnair III, MD POINT OF CARE TEST ORDERABLES Final Result Performing Organization Address [facility] Co de Phone Number [facility] [address] * (ABNORMAL) POC Glucose Monitoring Device (10/28/2024 2:03 AM EDT) POC Glucose Monitoring Device 101(H) 70 - 100 mg/dL 10/28/2024 2:[address] [facility] Blood 10/28/2024 2:03 AM EDT 10/28/2024 2:04 AM EDT Semaj Mcnair III, MD POINT OF CARE TEST ORDERABLES Final Result Performing Organization Address [facility] de Phone Number [facility] [address] * Transfuse RBC Transfusion Rate: Per dept routine (10/28/2024 1:51 AM EDT) John Moreno MD NURSING TREATMENT ORDERABLES - BLOOD ADMIN Final Result Performing Organization Address City/[facility] Co de Phone Number EXTERNAL * Transfuse RBC Transfusion Rate: Per dept routine, 1 Units (10/28/2024 1:51 AM EDT) John Moreno MD NURSING TREATMENT ORDERABLES - BLOOD ADMIN Final Result Performing Organization Address [facility] de Phone Number EXTERNAL * (ABNORMAL) TEG-Bypass/ECMO/Liver HN (Factor function, Platelet/Fibrin Clot Strength w/Clot Breakdown, Heparinase In All Channels) (10/28/2024 12:05 AM EDT) Citrated Kaolin Reaction Time (TEGECMOLIVER) 7.5 4.6 - 9.1 minutes 10/28/2024 1:[address] [facility] Citrated Kaolin W/Heparinase Reaction Time (TEGECMOLIVER) 7.7 4.3 - 8.3 minutes 10/28/2024 1:[address] [facility] Citrated Kaolin Maximum Amplitude (TEGECMOLIVER) 54.4 52.0 - 69.0 mm 10/28/2024 1:[address] [facility] Citrated Functional Fibrinogen W/Heparinase Maximum Amplitude(TEGEC MOLIVER) 20.4 15.0 - 34.0 mm 10/28/2024 1:[address] [facility] Citrated Rapid Teg W/Heparinase Maximum Amplitude (TEGECMOLIVER) 51.0(L) 53.0 - 69.0 mm 10/28/2024 1:[address] [facility] Citrated Kaolin w/Heparinase Percent Lysis (TEGECMOLIVER) 0.0 0.0 - 3.2 % 10/28/2024 1:[address] [facility] Whole Blood (Citrate) 10/28/2024 12:05 AM EDT 10/28/2024 12:09 AM EDT Kemar Sahni MD LAB BLOOD ORDERABLES Final Result Performing Organization Address [facility]/ZIP Co de Phone Number [facility] [address] * Magnesium (10/28/2024 12:05 AM EDT) Pathologist [facility] Magnesium 2.2 1.5 - 2.5 mg/dL 10/28/2024 1:[address] [facility] Plasma 10/28/2024 12:0 5 AM EDT 10/28/2024 12:11 AM EDT Kemar Sahni MD LAB BLOOD ORDERABLES Final Result Performing Organization Address City/[facility] de Phone Number [facility] [address] * (ABNORMAL) Renal Function Panel w/EGFR (10/28/2024 12:05 AM EDT) Sodium 144 133 - 146 mmol/L 10/28/2024 1:[address] [facility] Potassium 3.4(L) 3.5 - 5.3 mmol/L 10/28/2024 1:59 AM EDT [facility] Chloride 112(H) 98 - 110 mmol/L 10/28/2024 1:59 AM EDT [facility] CO2 19(L) 21 - 33 mmol/L 10/28/2024 1:59 AM EDT [facility] Anion Gap 13 3 - 16 mmol/L 10/28/2024 1:[address] [facility] BUN 59(H) 7 - 25 mg/dL 10/28/2024 1:59 AM EDT [facility] Creatinine 2.42(H) 0.60 - 1.30 mg/dL 10/28/2024 1:[address] [facility] Glucose 118(H) 70 - 100 mg/dL 10/28/2024 1:[address] [facility] Calcium 9.0 8.6 - 10.3 mg/dL 10/28/2024 1:[address] [facility] Phosphorus 5.3(H) 2.1 - 4.7 mg/dL 10/28/2024 1:[address] [facility] Albumin 3.1(L) 3.5 - 5.7 g/dL 10/28/2024 1:59 AM EDT [facility] Osmolality, Calculated 316(H) 278 - 305 mOsm/kg 10/28/2024 1:[address] [facility] EGFR 34 10/28/2024 1:[address] [facility] Comment:As of 2021, the estimated [...] BLOOD ORDERABLES Final Result [facility] [address] [place] [address], [facility] * (ABNORMAL) Differential (10/28/2024 12:05 AM EDT) Neutrophils Relative 88.6(H) 40.0 - 80.0 % 10/28/2024 12:41 AM EDT [facility] Lymphocytes Relative 2.5(L) 15.0 - 45.0 % 10/28/2024 12:41 AM EDT [facility] Monocytes Relative 6.1 0.0 - 12.0 % 10/28/2024 12:41 AM EDT [facility] Eosinophils Relative 2.4 0.0 - 8.0 % 10/28/2024 12:[address] [facility] Basophils Relative 0.4 0.0 - 1.0 % 10/28/2024 12:[address] [facility] nRBC 0 0 - 0 /100 WBC 10/28/2024 12:[address] [facility] Neutrophils Absolute 4,341 1,520 - 8,640 /uL 10/28/2024 12:[address] [facility] Lymphocytes Absolute 123(L) 570 - 4,860 /uL 10/28/2024 12:[address] [facility] Monocytes Absolute 299 0 - 1,296 /uL 10/28/2024 12:41 AM EDT [facility] Eosinophils Absolute 118 0 - 864 /uL 10/28/2024 12:[address] [facility] Basophils Absolute 20 0 - 108 /uL 10/28/2024 12:[address] [facility] Whole Blood 10/28/2024 12:0 5 AM EDT 10/28/2024 12:11 AM EDT Kemar Sahni MD LAB BLOOD ORDERABLES Final Result [facility] [address] [employer] [facility]. [address] * (ABNORMAL) CBC (10/28/2024 12:05 AM EDT) Pathologist [facility] WBC 4.9 3.8 - 10.8 10E3/uL 10/28/2024 12:[address] [facility] RBC 2.18(L) 4.20 - 5.80 10E6/uL 10/28/2024 12:[address] [facility] Hemoglobin 6.7(L) 13.2 - 17.1 g/dL 10/28/2024 12:[address] [facility] Hematocrit 19.2(L) 38.5 - 50.0 % 10/28/2024 12:[address] [facility] MCV 87.8 80.0 - 100.0 fL 10/28/2024 12:[address] [facility] MCH 30.6 27.0 - 33.0 pg 10/28/2024 12:[address] [facility] MCHC 34.8 32.0 - 36.0 g/dL 10/28/2024 12:[address] [facility] RDW 19.6(H) 11.0 - 15.0 % 10/28/2024 12:[address] [facility] Platelets 45(L) 140 - 400 10E3/uL 10/28/2024 12:[address] [facility] Comment: CNV Specimen checked for clots. None detected. MPV 7.8 7.5 - 11.5 fL 10/28/2024 12:[address] [facility] Whole Blood 10/28/2024 12:0 5 AM EDT 10/28/2024 12:11 AM EDT Kemar Sahni MD LAB BLOOD ORDERABLES Final Result [facility] [address] [employer] [facility]. [address] * (ABNORMAL) POC Glucose Monitoring Device (10/28/2024 12:03 AM EDT) POC Glucose Monitoring Device 122(H) 70 - 100 mg/dL 10/28/2024 12:[address] [facility] Blood 10/28/2024 12:0 3 AM EDT 10/28/2024 12:04 AM EDT us Semaj Mcnair III, MD POINT OF CARE TEST ORDERABLES Final Result Performing Organization Address City/[facility] Co de Phone Number [facility] [address] [place] [address] * (ABNORMAL) POC Glucose Monitoring Device (10/27/2024 10:03 PM EDT) POC Glucose Monitoring Device 127(H) 70 - 100 mg/dL 10/27/2024 10:[address] [facility] Blood 10/27/2024 10:0 3 PM EDT 10/27/2024 10:03 PM EDT us Semaj Mcnair III, MD POINT OF CARE TEST ORDERABLES Final Result Performing Organization Address [facility] Co de Phone Number [facility] [address] [place] [address]. [address] * (ABNORMAL) POC Glucose Monitoring Device (10/27/2024 8:06 PM EDT) POC Glucose Monitoring Device 128(H) 70 - 100 mg/dL 10/27/2024 8:[address] [facility] Blood 10/27/2024 8:06 PM EDT 10/27/2024 8:45 PM EDT us Semaj Mcnair III, MD POINT OF CARE TEST ORDERABLES Final Result Performing Organization Address City/[facility] Co de Phone Number [facility] [address] [place] [address] * (ABNORMAL) POC Glucose Monitoring Device (10/27/2024 6:00 PM EDT) POC Glucose Monitoring Device 128(H) 70 - 100 mg/dL 10/27/2024 6:[address] [facility] Blood 10/27/2024 6:00 PM EDT 10/27/2024 6:00 PM EDT Semaj Mcnair III, MD POINT OF CARE TEST ORDERABLES Final Result [facility] [address] [facility]. [address] * Lactic Acid, STAT (10/27/2024 5:41 PM EDT) Pathologist [facility] Lactate 0.5 0.5 - 2.2 mmol/L 10/27/2024 6:[address] [facility] Plasma 10/27/2024 5:41 PM EDT 10/27/2024 5:[address] [facility] - 10/27/2024 6:28 PM EDT Redraw John Moreno MD LAB BLOOD ORDERABLES Final R esult Performing Organization Address City/[facility]/ZIP Co de Phone Number [facility] [address] [facility]. [address] * (ABNORMAL) Hepatic Function Panel, STAT (10/27/2024 5:13 PM EDT) Total Bilirubin 1.7(H) 0.0 - 1.5 mg/dL 10/27/2024 5:[address] [facility] Bilirubin, Direct 1.17(H) 0.00 - 0.40 mg/dL 10/27/2024 5:[address] [facility] AST 60(H) 13 - 39 U/L 10/27/2024 5:[address] [facility] ALT 134(H) 7 - 52 U/L 10/27/2024 5:[address] [facility] Alkaline Phosphatase 27(L) 36 - 125 U/L 10/27/2024 5:[address] [facility] Total Protein 4.1(L) 6.4 - 8.9 g/dL 10/27/2024 5:[address] [facility] Albumin 2.9(L) 3.5 - 5.7 g/dL 10/27/2024 5:[address] [facility] Bilirubin, Indirect 0.53 0.00 - 1.10 mg/dL 10/27/2024 5:[address] [facility] Plasma 10/27/2024 5:13 PM EDT 10/27/2024 5:23 PM EDT us Shay Plata MD LAB BLOOD ORDERABLES Final Result [facility] [address] [place] [address], [facility] * (ABNORMAL) TEG-Bypass/ECMO/Liver HN (Factor function, Platelet/Fibrin Clot Strength w/Clot Breakdown, Heparinase In All Channels) (10/27/2024 5:13 PM EDT) [facility] Citrated Kaolin Reaction Time (TEGECMOLIVER) 8.0 4.6 - 9.1 minutes 10/27/2024 6:[address] [facility] Citrated Kaolin W/Heparinase Reaction Time (TEGECMOLIVER) 6.8 4.3 - 8.3 minutes 10/27/2024 6:[address] [facility] Citrated Kaolin Maximum Amplitude (TEGECMOLIVER) 55.4 52.0 - 69.0 mm 10/27/2024 6:[address] [facility] Citrated Functional Fibrinogen W/Heparinase Maximum Amplitude(TEGEC MOLIVER) 22.9 15.0 - 34.0 mm 10/27/2024 6:[address] [facility] Citrated Rapid Teg W/Heparinase Maximum Amplitude (TEGECMOLIVER) 50.8(L) 53.0 - 69.0 mm 10/27/2024 6:[address] [facility] Citrated Kaolin w/Heparinase Percent Lysis (TEGECMOLIVER) 0.1 0.0 - 3.2 % 10/27/2024 6:[address] [facility] Whole Blood (Citrate) 10/27/2024 5:13 PM EDT 10/27/2024 5:20 PM EDT Kemar Sahni MD LAB BLOOD ORDERABLES Final Result Performing Organization Address City/[facility] Co de Phone Number [facility] [address] [facility]. [address] * (ABNORMAL) Protime-INR (10/27/2024 5:13 PM EDT) Protime 15.2(H) 12.1 - 15.1 seconds 10/27/2024 5:[address] [facility] INR 1.1 0.9 - 1.1 10/27/2024 5:[address] [facility] Comment: RECOMMENDED THERAPEUTIC RANGES USING INR : Stable oral anticoagulant therapy: 2.0 - 3.0 Mechanical prosthetic heart valve: 2.5 - 3.5 Recurrent acute myocardial infarction: 2.5 - 3.5 Plasma 10/27/2024 5:13 PM EDT 10/27/2024 5:23 PM EDT Kemar Sahni MD LAB BLOOD ORDERABLES Final Result Performing Organization Address [facility] Co de Phone Number [facility] [address] [facility]. [address] * Magnesium (10/27/2024 5:13 PM EDT) Magnesium 2.4 1.5 - 2.5 mg/dL 10/27/2024 5:[address] [facility] Plasma 10/27/2024 5:13 PM EDT 10/27/2024 5:23 PM EDT Kemar Sahni MD LAB BLOOD ORDERABLES Final Result Performing Organization Address City/[facility]/ZIP Co de Phone Number [facility] [address] * (ABNORMAL) Hepatic Function Panel (10/27/2024 5:13 PM EDT) Total Bilirubin 1.7(H) 0.0 - 1.5 mg/dL 10/27/2024 5:[address] [facility] Bilirubin, Direct 1.10(H) 0.00 - 0.40 mg/dL 10/27/2024 5:[address] [facility] AST 62(H) 13 - 39 U/L 10/27/2024 5:[address] [facility] ALT 134(H) 7 - 52 U/L 10/27/2024 5:[address] [facility] Alkaline Phosphatase 27(L) 36 - 125 U/L 10/27/2024 5:[address] [facility] Total Protein 4.1(L) 6.4 - 8.9 g/dL 10/27/2024 5:[address] [facility] Albumin 2.9(L) 3.5 - 5.7 g/dL 10/27/2024 5:[address] [facility] Bilirubin, Indirect 0.60 0.00 - 1.10 mg/dL 10/27/2024 5:[address] [facility] Plasma 10/27/2024 5:13 PM EDT 10/27/2024 5:23 PM EDT Kemar Sahni MD LAB BLOOD ORDERABLES Final Result Performing Organization Address City/State/[facility] Co de Phone Number [facility] [address] * (ABNORMAL) Renal Function Panel w/EGFR (10/27/2024 5:13 PM EDT) Sodium 142 133 - 146 mmol/L 10/27/2024 5:[address] [facility] Potassium 3.4(L) 3.5 - 5.3 mmol/L 10/27/2024 5:[address] [facility] Chloride 109 98 - 110 mmol/L 10/27/2024 5:[address] [facility] CO2 22 21 - 33 mmol/L 10/27/2024 5:[address] [facility] Anion Gap 11 3 - 16 mmol/L 10/27/2024 5:[address] [facility] BUN 61(H) 7 - 25 mg/dL 10/27/2024 5:[address] [facility] Creatinine 2.42(H) 0.60 - 1.30 mg/dL 10/27/2024 5:[address] [facility] Glucose 125(H) 70 - 100 mg/dL 10/27/2024 5:[address] [facility] Calcium 8.8 8.6 - 10.3 mg/dL 10/27/2024 5:[address] [facility] Phosphorus 5.7(H) 2.1 - 4.7 mg/dL 10/27/2024 5:[address] [facility] Albumin 2.9(L) 3.5 - 5.7 g/dL 10/27/2024 5:[address] [facility] Osmolality, Calculated 313(H) 278 - 305 mOsm/kg 10/27/2024 5:[address] [facility] EGFR 34 10/27/2024 5:[address] [facility] Comment:As of 2021, the estimated [...] MD LAB BLOOD ORDERABLES Final Result [facility] [address] * (ABNORMAL) CBC (10/27/2024 5:13 PM EDT) Pathologist [facility] WBC 4.9 3.8 - 10.8 10E3/uL 10/27/2024 6:[address] [facility] RBC 2.44(L) 4.20 - 5.80 10E6/uL 10/27/2024 6:[address] [facility] Hemoglobin 7.4(L) 13.2 - 17.1 g/dL 10/27/2024 6:[address] [facility] Hematocrit 21.4(L) 38.5 - 50.0 % 10/27/2024 6:[address] [facility] MCV 87.6 80.0 - 100.0 fL 10/27/2024 6:[address] [facility] MCH 30.3 27.0 - 33.0 pg 10/27/2024 6:[address] [facility] MCHC 34.6 32.0 - 36.0 g/dL 10/27/2024 6:[address] [facility] RDW 19.6(H) 11.0 - 15.0 % 10/27/2024 6:[address] [facility] Platelets 47(L) 140 - 400 10E3/uL 10/27/2024 6:[address] [facility] Comment: CNV Specimen checked for clots. None detected. MPV 8.1 7.5 - 11.5 fL 10/27/2024 6:[address] [facility] Whole Blood 10/27/2024 5:13 PM EDT 10/27/2024 5:23 PM EDT us Kemar Sahni MD LAB BLOOD ORDERABLES Final Result [facility] [address] [place] * (ABNORMAL) POC Glucose Monitoring Device (10/27/2024 3:57 PM EDT) Pathologist [facility] POC Glucose Monitoring Device 131(H) 70 - 100 mg/dL 10/27/2024 3:[address] [facility] Blood 10/27/2024 3:57 PM EDT 10/27/2024 3:58 PM EDT Semaj Mcnair III, MD POINT OF CARE TEST ORDERABLES Final Result [facility] [address] [place] [address], [facility] * (ABNORMAL) CBC, STAT (10/27/2024 2:40 PM EDT) WBC 5.8 3.8 - 10.8 10E3/uL 10/27/2024 2:[address] [facility] RBC 2.43(L) 4.20 - 5.80 10E6/uL 10/27/2024 2:[address] [facility] Hemoglobin 7.5(L) 13.2 - 17.1 g/dL 10/27/2024 2:[address] [facility] Hematocrit 21.5(L) 38.5 - 50.0 % 10/27/2024 2:[address] [facility] MCV 88.2 80.0 - 100.0 fL 10/27/2024 2:[address] [facility] MCH 30.7 27.0 - 33.0 pg 10/27/2024 2:[address] [facility] MCHC 34.8 32.0 - 36.0 g/dL 10/27/2024 2:[address] [facility] RDW 19.1(H) 11.0 - 15.0 % 10/27/2024 2:[address] [facility] Platelets 50(L) 140 - 400 10E3/uL 10/27/2024 2:[address] [facility] MPV 7.5 7.5 - 11.5 fL 10/27/2024 2:[address] [facility] Whole Blood 10/27/2024 2:40 PM EDT 10/27/2024 2:44 PM EDT us John Moreno MD LAB BLOOD ORDERABLES Final R esult [facility] [address] [id number], [facility] * (ABNORMAL) Blood Gas, Arterial, STAT (10/27/2024 2:40 PM EDT) O2 Sat, Arterial 98 10/27/2024 2:[address] [facility] FIO2 RA 10/27/2024 2:[address] [facility] pH, Arterial 7.37 7.35 - 7.45 10/27/2024 2:[address] [facility] pCO2, Arterial 35 35 - 45 mm Hg 10/27/2024 2:[address] [facility] pO2, Arterial 92 80 - 100 mm Hg 10/27/2024 2:[address] [facility] HCO3, Arterial 21(L) 22 - 26 mmol/L 10/27/2024 2:[address] [facility] CO2 Content,Arteri al 21(L) 23 - 27 mmol/L 10/27/2024 2:[address] [facility] Base Excess, Arterial -4.6(L) -2.0 - 3.0 mmol/L 10/27/2024 2:[address] [facility] %HBO2, Arterial 95.4 95.0 - 98.0 % 10/27/2024 2:[address] [facility] Carboxyhemoglo bin, Arterial 1.6 % 10/27/2024 2:[address] [facility] Comment: CARBOXYHEMOGLOBIN (CO) REFERENCE RANGES: Non-Smokers: <2 % Smokers: <8 % TOXIC: >20 % Methemoglobin, Arterial 1.0 0.0 - 1.5 % 10/27/2024 2:[address] [facility] Reduced hemoglobin, Arterial 2.1 0.0 - 5.0 % 10/27/2024 2:[address] [facility] Blood, Arterial 10/27/2024 2 :40 PM EDT 10/27/2024 2:[address] [facility] - 10/27/2024 2:46 PM EDT Post extubation John Moreno MD LAB BLOOD ORDERABLES Final R esult [facility] [address] [employer] [facility]. [address] * (ABNORMAL) POC Glucose Monitoring Device (10/27/2024 2:06 PM EDT) [facility] POC Glucose Monitoring Device 134(H) 70 - 100 mg/dL 10/27/2024 2:[address] [facility] Blood 10/27/2024 2:06 PM EDT 10/27/2024 2:06 PM EDT Semaj Mcnair III, MD POINT OF CARE TEST ORDERABLES Final Result Performing Organization Address City/[facility]/ZIP Co de Phone Number [facility] [address] * (ABNORMAL) Blood gas, arterial (10/27/2024 12:35 PM EDT) O2 Sat, Arterial 99 10/27/2024 12:[address] [facility] FIO2 SBT 30% 10/27/2024 12:[address] [facility] pH, Arterial 7.35 7.35 - 7.45 10/27/2024 12:[address] [facility] pCO2, Arterial 37 35 - 45 mm Hg 10/27/2024 12:[address] [facility] pO2, Arterial 182(H) 80 - 100 mm Hg 10/27/2024 12:[address] [facility] HCO3, Arterial 21(L) 22 - 26 mmol/L 10/27/2024 12:[address] [facility] CO2 Content,Arteri al 22(L) 23 - 27 mmol/L 10/27/2024 12:[address] [facility] Base Excess, Arterial -4.8(L) -2.0 - 3.0 mmol/L 10/27/2024 12:[address] [facility] %HBO2, Arterial 96.3 95.0 - 98.0 % 10/27/2024 12:[address] [facility] Carboxyhemoglo bin, Arterial 1.7 % 10/27/2024 12:[address] [facility] Comment: CARBOXYHEMOGLOBIN (CO) REFERENCE RANGES: Non-Smokers: <2 % Smokers: <8 % TOXIC: >20 % Methemoglobin, Arterial 1.4 0.0 - 1.5 % 10/27/2024 12:[address] [facility] Reduced hemoglobin, Arterial 0.6 0.0 - 5.0 % 10/27/2024 12:[address] [facility] Blood, Arterial 10/27/2024 1 2:35 PM EDT 10/27/2024 12:[address] [facility] - 10/27/2024 12:46 PM EDT Please obtain post SBT us Shay Sifuentes MD LAB BLOOD ORDERABLES Final Resu lt [facility] [address] * (ABNORMAL) TEG-Bypass/ECMO/Liver HN (Factor function, Platelet/Fibrin Clot Strength w/Clot Breakdown, Heparinase In All Channels) (10/27/2024 12:07 PM EDT) [facility] Citrated Kaolin Reaction Time (TEGECMOLIVER) 7.9 4.6 - 9.1 minutes 10/27/2024 1:[address] [facility] Citrated Kaolin W/Heparinase Reaction Time (TEGECMOLIVER) 8.3 4.3 - 8.3 minutes 10/27/2024 1:[address] [facility] Citrated Kaolin Maximum Amplitude (TEGECMOLIVER) 52.0 52.0 - 69.0 mm 10/27/2024 1:[address] [facility] Citrated Functional Fibrinogen W/Heparinase Maximum Amplitude(TEGEC MOLIVER) 20.1 15.0 - 34.0 mm 10/27/2024 1:[address] [facility] Citrated Rapid Teg W/Heparinase Maximum Amplitude (TEGECMOLIVER) 49.4(L) 53.0 - 69.0 mm 10/27/2024 1:[address] [facility] Citrated Kaolin w/Heparinase Percent Lysis (TEGECMOLIVER) 0.0 0.0 - 3.2 % 10/27/2024 1:[address] [facility] Whole Blood (Citrate) 10/27/2024 12:07 PM EDT 10/27/2024 12:09 PM EDT Kemar Sahni MD LAB BLOOD ORDERABLES Final Result Performing Organization Address City/[facility]/ZIP Co de Phone Number [facility] [address] [place] [address]. [address] * (ABNORMAL) POC Glucose Monitoring Device (10/27/2024 12:01 PM EDT) POC Glucose Monitoring Device 121(H) 70 - 100 mg/dL 10/27/2024 12:[address] [facility] Blood 10/27/2024 12:0 1 PM EDT 10/27/2024 12:01 PM EDT Semaj Mcnair III, MD POINT OF CARE TEST ORDERABLES Final Result Performing Organization Address [facility] Co de Phone Number [facility] [address] [place] [address]. [address] * (ABNORMAL) POC Glucose Monitoring Device (10/27/2024 10:59 AM EDT) POC Glucose Monitoring Device 126(H) 70 - 100 mg/dL 10/27/2024 11:[address] [facility] Blood 10/27/2024 10:5 9 AM EDT 10/27/2024 11:10 AM EDT Semaj Mcnair III, MD POINT OF CARE TEST ORDERABLES Final Result Performing Organization Address City/[facility] Co de Phone Number [facility] [address] [place] [address]. [address] * ECG 12 lead (MUSE) (10/27/2024 10:17 AM EDT) 10/27/2024 10:1 7 AM EDT Narrative MUSE - 10/27/2024 2:51 PM EDT Ventricular Rate: 91 BPM Atrial Rate: 91 BPM P-R Interval: 168 ms QRS Duration: 90 ms QT: 274 ms QTc: 337 ms P [place]: 60 degrees R [place]: -30 degrees T [place]: -15 degrees Diagnosis Line: NORMAL SINUS RHYTHM ^ LEFT AXIS DEVIATION, LEFT ANTERIOR HEMIBLOCK ^ NONSPECIFIC T WAVE CHANGE ^ ABNORMAL ECG ^ ^ Confirmed by MD ROLLY, [facility] ([id number]) on 10/27/2024 2:51:52 PM Shay Sifuentes MD ECG ORDERABLES Final Result MUSE * (ABNORMAL) POC Glucose Monitoring Device (10/27/2024 10:00 AM EDT) [facility] POC Glucose Monitoring Device 121(H) 70 - 100 mg/dL 10/27/2024 10:01 AM EDT [facility] Blood 10/27/2024 10:0 0 AM EDT 10/27/2024 10:01 AM EDT Semaj Mcnair III, MD POINT OF CARE TEST ORDERABLES Final Result Performing Organization Address City/[facility] Co de Phone Number [facility] [address] * US Renal Transplant (10/27/2024 9:51 [...] 10:28 AM EDT us Sveta Judge MD [facility] [place] ORDERABLES Final Result * US Duplex [id number]-[id number]-[id number] Comp (10/27/2024 9:51 AM EDT) Anatomical Region [...] EXAM: US ABDOMEN LIMITED EXAM: US DUPLEX [id number] COMPLETE INDICATION: Post-op liver transplant COMPARISON: None [...] EXAM: US ABDOMEN LIMITED EXAM: US DUPLEX [id number] COMPLETE INDICATION: Post-op liver transplant COMPARISON: None [...] EXAM: US ABDOMEN LIMITED EXAM: US DUPLEX [id number] COMPLETE INDICATION: Post-op liver transplant COMPARISON: None [...] EXAM: US ABDOMEN LIMITED EXAM: US DUPLEX [id number] COMPLETE INDICATION: Post-op liver transplant COMPARISON: None [...] - 100 mg/dL 10/27/2024 9:[address] [facility] Blood 10/27/2024 9:05 AM EDT 10/27/2024 9:06 AM EDT us Semaj Mcnair III, MD POINT OF CARE TEST ORDERABLES Final Result [facility] [address] * X-ray Portable Chest (10/27/2024 8:58 [...] - 15.1 seconds 10/27/2024 8:[address] [facility] INR 1.2(H) 0.9 - 1.1 10/27/2024 8:[address] [facility] Comment: RECOMMENDED THERAPEUTIC RANGES USING INR : Stable oral anticoagulant therapy: 2.0 - 3.0 Mechanical prosthetic heart valve: 2.5 - 3.5 Recurrent acute myocardial infarction: 2.5 - 3.5 Plasma 10/27/2024 8:16 AM EDT 10/27/2024 8:20 AM EDT John Moreno MD LAB BLOOD ORDERABLES Final R esult [facility] [address] * Magnesium (10/27/2024 8:00 AM EDT) Magnesium 1.8 1.5 - 2.5 mg/dL 10/27/2024 10:[address] [facility] Plasma 10/27/2024 8:00 AM EDT 10/27/2024 10:31 AM EDT Kemar Sahni MD LAB BLOOD ORDERABLES Final Result Performing Organization Address [facility] Co de Phone Number [facility] [address] * (ABNORMAL) Renal Function Panel w/EGFR (10/27/2024 8:00 AM EDT) Sodium 142 133 - 146 mmol/L 10/27/2024 10:[address] [facility] Potassium 3.0(L) 3.5 - 5.3 mmol/L 10/27/2024 10:[address] [facility] Chloride 109 98 - 110 mmol/L 10/27/2024 10:[address] [facility] CO2 21 21 - 33 mmol/L 10/27/2024 10:[address] [facility] Anion Gap 12 3 - 16 mmol/L 10/27/2024 10:[address] [facility] BUN 59(H) 7 - 25 mg/dL 10/27/2024 10:[address] [facility] Creatinine 2.54(H) 0.60 - 1.30 mg/dL 10/27/2024 10:[address] [facility] Glucose 111(H) 70 - 100 mg/dL 10/27/2024 10:[address] [facility] Calcium 9.1 8.6 - 10.3 mg/dL 10/27/2024 10:[address] [facility] Phosphorus 5.5(H) 2.1 - 4.7 mg/dL 10/27/2024 10:[address] [facility] Albumin 3.0(L) 3.5 - 5.7 g/dL 10/27/2024 10:[address] [facility] Osmolality, Calculated 311(H) 278 - 305 mOsm/kg 10/27/2024 10:[address] [facility] EGFR 32 10/27/2024 10:[address] [facility] Comment:As of 2021, the estimated [...] MD LAB BLOOD ORDERABLES Final Result [facility] [address] [place] [employer] [facility] [place] [address], [facility] * (ABNORMAL) Hepatic Function Panel, STAT (10/27/2024 8:00 AM EDT) Total Bilirubin 1.3 0.0 - 1.5 mg/dL 10/27/2024 8:[address] [facility] Bilirubin, Direct 0.93(H) 0.00 - 0.40 mg/dL 10/27/2024 8:[address] [facility] AST 88(H) 13 - 39 U/L 10/27/2024 8:[address] [facility] ALT 149(H) 7 - 52 U/L 10/27/2024 8:[address] [facility] Alkaline Phosphatase 26(L) 36 - 125 U/L 10/27/2024 8:[address] [facility] Total Protein 4.0(L) 6.4 - 8.9 g/dL 10/27/2024 8:[address] [facility] Albumin 3.0(L) 3.5 - 5.7 g/dL 10/27/2024 8:[address] [facility] Bilirubin, Indirect 0.37 0.00 - 1.10 mg/dL 10/27/2024 8:[address] [facility] Plasma 10/27/2024 8:00 AM EDT 10/27/2024 8:20 AM EDT us Semaj Mcnair III, MD LAB BLOOD ORDERABLE S Final Result Performing Organization Address [facility] Co de Phone Number [facility] [address] * (ABNORMAL) Lactic Acid, STAT (10/27/2024 8:00 AM EDT) Lactate 0.4(L) 0.5 - 2.2 mmol/L 10/27/2024 8:[address] [facility] Plasma 10/27/2024 8:00 AM EDT 10/27/2024 8:20 AM EDT us Semaj Mcnair III, MD LAB BLOOD ORDERABLE S Final Result Performing Organization Address City/[facility]/ZIP Co de Phone Number [facility] [address] * (ABNORMAL) Blood Gas, Arterial, STAT (10/27/2024 8:00 AM EDT) O2 Sat, Arterial 100 10/27/2024 8:[address] [facility] pH, Arterial 7.36 7.35 - 7.45 10/27/2024 8:[address] [facility] pCO2, Arterial 37 35 - 45 mm Hg 10/27/2024 8:[address] [facility] pO2, Arterial 245(H) 80 - 100 mm Hg 10/27/2024 8:[address] [facility] HCO3, Arterial 22 22 - 26 mmol/L 10/27/2024 8:[address] [facility] CO2 Content,Arteri al 22(L) 23 - 27 mmol/L 10/27/2024 8:[address] [facility] Base Excess, Arterial -4.2(L) -2.0 - 3.0 mmol/L 10/27/2024 8:[address] [facility] %HBO2, Arterial 96.5 95.0 - 98.0 % 10/27/2024 8:[address] [facility] Carboxyhemoglo bin, Arterial 2.2 % 10/27/2024 8:[address] [facility] Comment: CARBOXYHEMOGLOBIN (CO) REFERENCE RANGES: Non-Smokers: <2 % Smokers: <8 % TOXIC: >20 % Methemoglobin, Arterial 1.2 0.0 - 1.5 % 10/27/2024 8:[address] [facility] Reduced hemoglobin, Arterial 0.0 0.0 - 5.0 % 10/27/2024 8:[address] [facility] Blood, Arterial 10/27/2024 8 :00 AM EDT 10/27/2024 8:[address] [facility] - 10/27/2024 8:23 AM EDT Specimen is beyond 15 minutes from time of collection. Results may be compromised. Review results critically. us Kemar Sahni MD LAB BLOOD ORDERABLES Final Result [facility] [address] * (ABNORMAL) TEG-Bypass/ECMO/Liver HN (Factor function, Platelet/Fibrin Clot Strength w/Clot Breakdown, Heparinase In All Channels) (10/27/2024 8:00 AM EDT) Citrated Kaolin Reaction Time (TEGECMOLIVER) 7.8 4.6 - 9.1 minutes 10/27/2024 9:[address] [facility] Citrated Kaolin W/Heparinase Reaction Time (TEGECMOLIVER) 8.0 4.3 - 8.3 minutes 10/27/2024 9:[address] [facility] Citrated Kaolin Maximum Amplitude (TEGECMOLIVER) 52.7 52.0 - 69.0 mm 10/27/2024 9:[address] [facility] Citrated Functional Fibrinogen W/Heparinase Maximum Amplitude(TEGEC MOLIVER) 19.0 15.0 - 34.0 mm 10/27/2024 9:[address] [facility] Citrated Rapid Teg W/Heparinase Maximum Amplitude (TEGECMOLIVER) 49.5(L) 53.0 - 69.0 mm 10/27/2024 9:[address] [facility] Citrated Kaolin w/Heparinase Percent Lysis (TEGECMOLIVER) 0.0 0.0 - 3.2 % 10/27/2024 9:[address] [facility] Whole Blood (Citrate) 10/27/2024 8:00 AM EDT 10/27/2024 8:19 AM EDT us Kemar Sahni MD LAB BLOOD ORDERABLES Final Result [facility] [address] [employer] [facility]. [address] * (ABNORMAL) Katie-Watkins virus VCA IgG Antibody (10/27/2024 8:00 AM EDT) EBV VCA IgG Positive( A) Negative 10/27/2024 11:[address] [facility] Comment:Presence of detectab le VCA IgG antibodies. 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 EBV IGG NUM 314.00(H) 0.00 - 17.99 U/mL 10/27/2024 11:[address] [facility] Serum 10/27/2024 8:00 AM EDT 10/27/2024 8:20 AM EDT Kemar Sahni MD LAB BLOOD ORDERABLES Final Result Performing Organization Address [facility] Co de Phone Number [facility] [address] [facility]. [address] * Hemoglobin A1c (10/27/2024 8:00 AM EDT) Hemoglobin A1C 5.0 4.0 - 5.6 % 10/27/2024 11:[address] [facility] Comment: Hemoglobin A1c Interpretation Guidelines: Normal: [...] ORDERABLES Final Result Performing Organization Address City/[facility] Co de Phone Number [facility] [address] [facility]. [address] * (ABNORMAL) POC Glucose Monitoring Device (10/27/2024 7:59 AM EDT) POC Glucose Monitoring Device 113(H) 70 - 100 mg/dL 10/27/2024 7:[address] [facility] Blood 10/27/2024 7:59 AM EDT 10/27/2024 7:59 AM EDT us Semaj Mcnair III, MD POINT OF CARE TEST ORDERABLES Final Result [facility] [address] [place] [address], [facility] * X-ray Abdomen AP view (10/27/2024 [...] Units (10/27/2024 6:16 AM EDT) Product Code G6913R55 HCLL Unit Number [id number] HCLL Dispense Status Presumed Transfused_PT HCLL Blood Expiration Date [id number] HCLL Coding System [id number] HCLL Product Code Y8694R26 HCLL Unit Number [id number] HCLL Dispense Status Presumed Transfused_PT HCLL Blood Expiration Date [id number] HCLL Coding System [id number] HCLL Blood Bank Product us John Pina MD BLOOD BANK PRODUCT ORDERABLES F inal Result Performing Organization Address City/[facility] Co de Phone Number HCLL * Prepare Platelets, leukoreduced, 1 Units (10/27/2024 6:16 AM EDT) Product Code F5986B60 HCLL Unit Number [id number] HCLL Dispense Status Presumed Transfused_PT [facility]LL Blood Expiration Date [id number] HCLL Coding System FERI485 HCLL Blood Bank Product us Eber Quinones MD BLOOD BANK PRODUCT ORDER PAL Final Result HCLL * Prepare Cryoprecipitate, 1 Units (10/27/2024 6:16 AM EDT) Product Code E7252B19 HCLL Unit Number [id number] HCLL Dispense Status Presumed Transfused_PT HCLL Blood Expiration Date 744493452985 HCLL Coding System SSSY264 HCLL Product Code D8379H75 HCLL Unit Number [id number] HCLL Dispense Status Presumed Transfused_PT HCLL Blood Expiration Date HCLL Coding System HVIK561 HCLL Blood Bank Product Eber Quinones MD BLOOD BANK PRODUCT ORDER PAL Final Result HCLL * Prepare Fresh Frozen Plasma, 10 Units (10/27/2024 6:16 AM EDT) Product Code T2936H95 HCLL Unit Number [id number] HCLL Dispense Status Presumed Transfused_PT HCLL Blood Expiration Date HCLL Coding System HBIU556 HCLL Product Code P7180N80 HCLL Unit Number [id number] HCLL Dispense Status Presumed Transfused_PT HCLL Blood Expiration Date HCLL Coding System XDNV937 HCLL Product Code Z3673T93 HCLL Unit Number [id number] HCLL Dispense Status Presumed Transfused_PT HCLL Blood Expiration Date 707319340628 HCLL Coding System CVRA501 HCLL Product Code S5398Y18 HCLL Unit Number [id number] HCLL Dispense Status Presumed Transfused_PT HCLL Blood Expiration Date 266274872389 HCLL Coding System BXUF581 HCLL Product Code N4786C44 HCLL Unit Number [id number] HCLL Dispense Status Released from Crossmatch_RE HCLL Blood Expiration Date 674210843222 HCLL Coding System BNNV954 HCLL Product Code H1866A94 HCLL Unit Number [id number] HCLL Dispense Status Released from Crossmatch_RE HCLL Blood Expiration Date HCLL Coding System EXDV066 HCLL Product Code C0815N46 HCLL Unit Number [id number] HCLL Dispense Status Presumed Transfused_PT HCLL Blood Expiration Date HCLL Coding System DUTX723 HCLL Product Code T9819Z98 HCLL Unit Number [id number] HCLL Dispense Status Presumed Transfused_PT HCLL Blood Expiration Date HCLL Coding System VQSN296 HCLL Product Code K4365P29 HCLL Unit Number [id number] HCLL Dispense Status Presumed Transfused_PT HCLL Blood Expiration Date HCLL Coding System EFLY200 HCLL Product Code N3538H18 HCLL Unit Number [id number] HCLL Dispense Status Presumed Transfused_PT HCLL Blood Expiration Date HCLL Coding System AMZZ869 HCLL Blood Bank Product us Leandra Og MD BLOOD BANK PRODUCT ORD ERABLES Final Result Performing Organization Address City/[facility]/ZIP Co de Phone Number HCLL * Prepare Platelets, leukoreduced, 1 Units (10/27/2024 6:16 AM EDT) Product Code K5632H21 HCLL Unit Number [id number] HCLL Dispense Status Presumed Transfused_PT HCLL Blood Expiration Date 338851383494 HCLL Coding System SEBG596 HCLL Blood Bank Product Ben Blake MD BLOOD BANK PRODUCT ORDERABLES Final Result HCLL * Prepare Fresh Frozen Plasma (10/27/2024 6:15 AM EDT) Product Code D0897N84 HCLL Unit Number [id number] HCLL Dispense Status Presumed Transfused_PT HCLL Blood Expiration Date 498733055173 HCLL Coding System DYET175 HCLL Product Code D8587O08 HCLL Unit Number [id number] HCLL Dispense Status Released from Crossmatch_RE HCLL Blood Expiration Date HCLL Coding System SXCO712 HCLL Product Code A8768H92 HCLL Unit Number [id number] HCLL Dispense Status Presumed Transfused_PT HCLL Blood Expiration Date HCLL Coding System YCPZ235 HCLL Product Code N9492N12 HCLL Unit Number [id number] HCLL Dispense Status Presumed Transfused_PT HCLL Blood Expiration Date HCLL Coding System LKYS669 HCLL Product Code W4113Z61 HCLL Unit Number [id number] HCLL Dispense Status Released from Crossmatch_RE HCLL Blood Expiration Date HCLL Coding System PBEI990 HCLL us Attending Provider Unknown BLOOD BANK PRODUCT OR DERABLES Final Result HCLL * Prepare RBC, leukoreduced (10/27/2024 6:15 AM EDT) Product Code M8632H11 HCLL Unit Number [id number] HCLL Dispense Status Presumed Transfused_PT HCLL Blood Expiration Date HCLL Coding System TIJA483 HCLL Product Code Z6545P62 HCLL Unit Number [id number] HCLL Dispense Status Released from Crossmatch_RE HCLL Blood Expiration Date HCLL Coding System LOQA087 HCLL Product Code B6783E41 HCLL Unit Number [id number] HCLL Dispense Status Released from Crossmatch_RE HCLL Blood Expiration Date 724871485716 HCLL Coding System YWZZ356 HCLL Product Code D9596N23 HCLL Unit Number [id number] HCLL Dispense Status Released from Crossmatch_RE HCLL Blood Expiration Date 379789771985 HCLL Coding System UQFJ413 HCLL Product Code L4858S82 HCLL Unit Number [id number] HCLL Dispense Status Released from Crossmatch_RE HCLL Blood Expiration Date HCLL Coding System UCIT553 HCLL us Attending Provider Unknown BLOOD BANK PRODUCT OR DERABLES Final Result HCLL * Prepare RBC, leukoreduced, 10 Units (10/27/2024 6:15 AM EDT) Product Code U5022G97 HCLL Unit Number [id number] HCLL Dispense Status Presumed Transfused_PT HCLL Blood Expiration Date HCLL Coding System ZQVO840 HCLL Product Code V0717F36 HCLL Unit Number [id number] HCLL Dispense Status Presumed Transfused_PT HCLL Blood Expiration Date HCLL Coding System WOSL609 HCLL Product Code Z0837Z67 HCLL Unit Number [id number] HCLL Dispense Status Presumed Transfused_PT HCLL Blood Expiration Date HCLL Coding System VZQX152 HCLL Product Code X8675S14 HCLL Unit Number [id number] HCLL Dispense Status Presumed Transfused_PT HCLL Blood Expiration Date HCLL Coding System CQPR918 HCLL Product Code K7083Z27 HCLL Unit Number [id number] HCLL Dispense Status Presumed Transfused_PT HCLL Blood Expiration Date HCLL Coding System QJEG068 HCLL Product Code R7741C52 HCLL Unit Number [id number] HCLL Dispense Status Presumed Transfused_PT HCLL Blood Expiration Date HCLL Coding System EPGJ236 HCLL Product Code N7841B29 HCLL Unit Number [id number] HCLL Dispense Status Presumed Transfused_PT [facility] Blood Expiration Date [facility]LL Coding System [id number] [facility] Product Code R3350U31 [facility] Unit Number [id number] [facility] Dispense Status Presumed Transfused_PT [facility] Blood Expiration Date [facility] Coding System AZNE461 [facility] Product Code C1100R26 [facility] Unit Number [id number] [facility] Dispense Status Presumed Transfused_PT [facility] Blood Expiration Date [facility]LL Coding System [id number] [facility] Product Code K8453A40 [facility] Unit Number [id number] [facility] Dispense Status Presumed Transfused_PT [facility] Blood Expiration Date [facility] Coding System IEEU824 [facility] Blood Bank Product us Leandra Og MD BLOOD BANK PRODUCT ORD ERABLES Final Result [facility] * Transfuse Platelets (10/27/2024 6:09 AM EDT) us Ben Blake MD NURSING TREATMENT ORDERABLES - BLOOD ADMIN Final Result * (ABNORMAL) Arterial Blood Gas Panel (10/27/2024 6:09 AM EDT) O2Sat (ABGP) 100 10/27/2024 6:[address] [facility] pH (ABGP) 7.30(L) 7.35 - 7.45 10/27/2024 6:[address] [facility] PCO2 (ABGP) 41 35 - 45 mm Hg 10/27/2024 6:[address] [facility] PO2 (ABGP) 192(H) 80 - 100 mm Hg 10/27/2024 6:[address] [facility] HCO3 (ABGP) 21(L) 22 - 26 mmol/L 10/27/2024 6:[address] [facility] CO2 Content (ABGP) 22(L) 23 - 27 mmol/L 10/27/2024 6:[address] [facility] Base Excess (ABGP) -5.7(L) -2.0 - 3.0 mmol/L 10/27/2024 6:[address] [facility] Sodium (ABGP) 138 136 - 146 mEq/L 10/27/2024 6:[address] [facility] Potassium (ABGP) 3.3(L) 3.5 - 5.0 mEq/L 10/27/2024 6:[address] [facility] [facility] Comment:In the event of in-v itro hemolysis, potassium results may be falsely elevated. Always interpret lab results in conjunction with clinical findings. If hemolysis is suspected, a serum sample may be collected for repeat assessment of potassium. Calcium, Free (ABGP) 5.28 4.50 - 5.30 mg/dL 10/27/2024 6:[address] [facility] Glucose (ABGP) 112(H) 70 - 100 mg/dL 10/27/2024 6:[address] [facility] Comment:There is interferenc e with whole blood glucose results on this method when Hematocrit is <25% or >60%. HCT (ABGP) 20.0(L) 40.0 - 52.0 % 10/27/2024 6:[address] [facility] HGB (ABGP) 6.5(L) 14.0 - 18.0 g/dL 10/27/2024 6:[address] [facility] %HBO2 (ABGP) 96.8 95.0 - 98.0 % 10/27/2024 6:[address] [facility] Carboxyhgb (ABGP) 2.1 % 025 6:[address] [facility] Comment: CARBOXYHEMOGLOBIN (CO) REFERENCE RANGES: Non-Smokers: <2 % Smokers: <8 % TOXIC: >20 % Methemoglobin (ABGP) 1.0 0.0 - 1.5 % 10/27/2024 6:[address] [facility] Reduced Hemoglobin (ABGP) 0.2 0.0 - 5.0 % 10/27/2024 6:[address] [facility] Lactic Acid (ABGP) 0.4(L) 0.5 - 1.6 mmol/L 10/27/2024 6:[address] [facility] Blood, Arterial 10/27/2024 6 :09 AM EDT 10/27/2024 6:14 AM EDT us Ben Blake MD LAB BLOOD ORDERABLES Final Re sult [facility] [address] * Transfuse Fresh Frozen Plasma (10/27/2024 5:49 AM EDT) Result [facility] Ben Blake MD NURSING TREATMENT ORDERABLES - BLOOD ADMIN Final Result * Transfuse Cryoprecipitate (10/27/2024 4:56 AM EDT) Ben Blake MD NURSING TREATMENT ORDERABLES - BLOOD ADMIN Final Result * Transfuse Cryoprecipitate (10/27/2024 4:49 AM EDT) Result [facility] Ben Blake MD NURSING TREATMENT ORDERABLES - BLOOD ADMIN Final Result * (ABNORMAL) POC Glucose Monitoring Device (10/27/2024 4:46 AM EDT) [facility] POC Glucose Monitoring Device 124(H) 70 - 100 mg/dL 10/27/2024 4:[address] [facility] Blood 10/27/2024 4:46 AM EDT 10/27/2024 4:47 AM EDT Result [facility] Semaj Mcnair III, MD POINT OF CARE TEST ORDERABLES Final Result [facility] [address] [facility]. [address] * Transfuse Platelets (10/27/2024 4:24 AM EDT) Result [facility] Ben Blake MD NURSING TREATMENT ORDERABLES - BLOOD ADMIN Final Result * Transfuse Fresh Frozen Plasma (10/27/2024 4:07 AM EDT) Result [facility] Ben Blake MD NURSING TREATMENT ORDERABLES - BLOOD ADMIN Final Result * Transfuse RBC (10/27/2024 3:52 AM EDT) Result [facility] Ben Blake MD NURSING TREATMENT ORDERABLES - BLOOD ADMIN Final Result * (ABNORMAL) Arterial Blood Gas Panel (10/27/2024 3:07 AM EDT) O2Sat (ABGP) 100 10/27/2024 3:[address] [facility] pH (ABGP) 7.32(L) 7.35 - 7.45 10/27/2024 3:[address] [facility] PCO2 (ABGP) 38 35 - 45 mm Hg 10/27/2024 3:[address] [facility] PO2 (ABGP) 176(H) 80 - 100 mm Hg 10/27/2024 3:[address] [facility] HCO3 (ABGP) 20(L) 22 - 26 mmol/L 10/27/2024 3:[address] [facility] CO2 Content (ABGP) 21(L) 23 - 27 mmol/L 10/27/2024 3:[address] [facility] Base Excess (ABGP) -6.0(L) -2.0 - 3.0 mmol/L 10/27/2024 3:21 AM [facility] Sodium (ABGP) 138 136 - 146 mEq/L 10/27/2024 3:21 AM [facility] Potassium (ABGP) 3.0(L) 3.5 - 5.0 mEq/L 10/27/2024 3:21 AM [facility] Comment:In the event of in-v itro hemolysis, potassium results may be falsely elevated. Always interpret lab results in conjunction with clinical findings. If hemolysis is suspected, a serum sample may be collected for repeat assessment of potassium. Calcium, Free (ABGP) 5.28 4.50 - 5.30 mg/dL 10/27/2024 3:21 AM [facility] Glucose (ABGP) 108(H) 70 - 100 mg/dL 10/27/2024 3:21 AM [facility] Comment:There is interferenc e with whole blood glucose results on this method when Hematocrit is <25% or >60%. HCT (ABGP) 22.0(L) 40.0 - 52.0 % 10/27/2024 3:[address] [facility] HGB (ABGP) 7.3(L) 14.0 - 18.0 g/dL 10/27/2024 3:21 AM [facility] %HBO2 (ABGP) 97.3 95.0 - 98.0 % 10/27/2024 3:[address] [facility] Carboxyhgb (ABGP) 1.9 % 025 3:[address] [facility] Comment: CARBOXYHEMOGLOBIN (CO) REFERENCE RANGES: Non-Smokers: <2 % Smokers: <8 % TOXIC: >20 % Methemoglobin (ABGP) 0.8 0.0 - 1.5 % 10/27/2024 3:[address] [facility] Reduced Hemoglobin (ABGP) 0.0 0.0 - 5.0 % 10/27/2024 3:[address] [facility] Lactic Acid (ABGP) 0.3(L) 0.5 - 1.6 mmol/L 10/27/2024 3:[address] [facility] Blood, Arterial 10/27/2024 3 :07 AM EDT 10/27/2024 3:14 AM EDT us Ben Blake MD LAB BLOOD ORDERABLES Final Re sult Performing Organization Address City/State/[facility] Co de Phone Number [facility] [address] * Surgical Pathology Exam (10/27/2024 2:38 AM EDT) Tissue LEFT KIDNEY STRUCTURE / Unknown 10/27/2024 2:38 AM EDT Narrative [facility] - 10/27/2024 12:00 AM EDT CASE: [id number] PATIENT: BLAIR GILBERT Clinical History: Transplant kidney with bile duct reconstruction Pre-Operative Diagnosis: Acute kidney injury superimposed on CKD Post-Operative Diagnosis: None Given Specimen(s) Submitted: A. baseline renal biopsy ; B. right lobe liver biopsy; C. left lobe liver biopsy CPT Code(s): 78042 X 1; 39880 X 2; 94220 X 4 Additional Information: FINAL DIAGNOSIS: A. [...] submitted between blue biopsy sponges in cassette [id number] B1-B2. (NAA Mckeon/ns) C. Received in formalin, labeled with the patient's name Blair Gilbert and left lobe liver biopsy are two green-georges tissue cores measuring 1.2 and 1.4 cm in length, each with a diameter of 0.1 cm, which are entirely submitted between blue biopsy sponges in cassette [id number] C1-C2. (NAA Mckeon/ns) Microscopic Description: I, the attending pathologist, have personally reviewed all prosector/resident work and pathology slides to determine final diagnosis. Control Materials Reacted Appropriately. Final Diagnosis performed by CLARE FALL MD Pathologist Electronically signed 10/31/2024 01:07:09 PM The Pathologist signing this report is located at [facility], [address] [place] [address], [facility], , CLIA ID: [id number] ADDENDUM: A. Kidney, allograft, baseline, wedge biopsy: [...] Pathologist signing this report is located at [facility], [address] [place] [address], [place], [place], [facility], , CLIA ID: [id number] Kemar Sahni MD PATHOLOGY/CYTOLOGY ORDERABL ES Edited Result - Final Performing Organization Address [facility] Co de Phone Number [facility] * Anaerobic culture (10/27/2024 2:15 AM EDT) Culture Result No Anaerobes Isolated in [address] [facility] Fluid SPECIMEN FROM KIDNEY / Unknown 10/27/2024 2:15 AM EDT 10/27/2024 4:[address] [facility] - 10/31/2024 11:43 AM EDT 1) perfusate Semja Mcnair III, MD MICROBIOLOGY - GENE RAL ORDERABLES Final Result Performing Organization Address [facility] Co de Phone Number [address] * Routine Culture plus Stain (10/27/2024 2:15 AM EDT) Gram Stain Result No Polymorphonuclear Leukocytes Seen [facility] Gram Stain Result No Organisms Seen; [facility] Culture Result No Growth After [address] [facility] Fluid SPECIMEN FROM KIDNEY / Unknown 10/27/2024 2:15 AM EDT 10/27/2024 4:24 AM EDT [facility] - 10/30/2024 9:26 AM EDT 1) perfusate Semaj Mcnair III, MD MICROBIOLOGY - GENE RAL ORDERABLES Final Result Performing Organization Address [facility]/State/ZIP Co de Phone Number [facility] [address] [place] [address], [facility] * Transfuse Platelets Transfusion Rate: [...] a Baseline TEG) (10/27/2024 1:51 AM EDT) [facility] Citrated Kaolin Reaction Time (TEGHEPARINASE) 10.6(H) 4.6 - 9.1 minutes 10/27/2024 2:[address] [facility] Citrated Rapid Teg Maximum Amplitude (TEGHEPARINASE) 42.3(L) 52.0 - 70.0 mm 10/27/2024 2:[address] [facility] Citrated Functional Fibrinogen Maximum Amplitude (TEGHEPARINASE) 15.0 15.0 - 32.0 mm 10/27/2024 2:[address] [facility] Citrated Kaolin W/Heparinase Reaction Time (TEGHEPARINASE) 10.5(H) 4.3 - 8.3 minutes 10/27/2024 2:[address] [facility] Citrated Kaolin K-Time (TEGHEPARINASE) 2.9(A) 0.8 - 2.1 minutes 10/27/2024 2:[address] [facility] Citrated Kaolin Angle (TEGHEPARINASE) 60.4(A) 63.0 - 78.0 degrees 10/27/2024 2:[address] [facility] Citrated Kaolin Maximum Amplitude (TEGHEPARINASE) 42.9(L) 52.0 - 69.0 mm 10/27/2024 2:[address] [facility] Citrated Functional Fibrinogen- Fibrinogen Level (TEGHEPARINASE) 273.7(L) 278.0 - 581.0 mg/dL 10/27/2024 2:[address] [facility] Whole Blood (Citrate) 10/27/2024 1:51 AM EDT 10/27/2024 2:03 AM EDT John Pina MD LAB BLOOD ORDERABLES Final Resu lt Performing Organization Address [facility] Co de Phone Number [facility] [address] * (ABNORMAL) POC Glucose Monitoring Device (10/27/2024 1:50 AM EDT) POC Glucose Monitoring Device 121(H) 70 - 100 mg/dL 10/27/2024 1:[address] [facility] Blood 10/27/2024 1:50 AM EDT 10/27/2024 1:51 AM EDT Semaj Mcnair III, MD POINT OF CARE TEST ORDERABLES Final Result Performing Organization Address [facility] Co de Phone Number [facility] [address] * Transfuse Cryoprecipitate Transfusion Rate: Per dept routine (10/27/2024 1:25 AM EDT) John Pina MD NURSING TREATMENT ORDERABLES - BLOOD ADMIN Final Result Performing Organization Address City/[facility] Co de Phone Number EXTERNAL * Transfuse Cryoprecipitate Transfusion Rate: Per dept routine, 1 Units (10/27/2024 1:25 AM EDT) John Pina MD NURSING TREATMENT ORDERABLES - BLOOD ADMIN Final Result Performing Organization Address [facility] Co de Phone Number EXTERNAL * (ABNORMAL) POC Glucose Monitoring Device (10/27/2024 1:21 AM EDT) POC Glucose Monitoring Device 123(H) 70 - 100 mg/dL 10/27/2024 1:[address] [facility] Blood 10/27/2024 1:21 AM EDT 10/27/2024 1:21 AM EDT us Semaj Mcnair III, MD POINT OF CARE TEST ORDERABLES Final Result Performing Organization Address [facility] Co de Phone Number [facility] [address] [place] [address], [facility] * Transfuse Fresh Frozen Plasma Transfusion Rate: Per dept routine (10/27/2024 1:03 AM EDT) us John Pina MD NURSING TREATMENT ORDERABLES - BLOOD ADMIN Final Result Performing Organization Address [facility] de Phone Number EXTERNAL * Transfuse Fresh Frozen Plasma Transfusion Rate: Per dept routine, 1 Units (10/27/2024 1:03 AM EDT) us John Pina MD NURSING TREATMENT ORDERABLES - BLOOD ADMIN Final Result Performing Organization Address [facility] de Phone Number EXTERNAL * Calcium Free, Serum (10/27/2024 12:13 AM EDT) Free Calcium, Ser 5.20 4.40 - 5.40 mg/dL 10/27/2024 12:[address] [facility] Comment:Free calcium levels vary inversely with pH by approximately 5% for each 0.1 unit of pH change. Assay results have been normalized to pH = 7.40. Serum 10/27/2024 12:1 3 AM EDT 10/27/2024 12:[address] [facility] - 10/27/2024 12:37 AM EDT This test has been developed and its performance characteristics determined by [facility] which is certified under the [...] lt Performing Organization Address [facility]/State/ZIP Co de Phone Number [facility] [address] [place] [address], [facility] * (ABNORMAL) Blood Gas, Arterial, STAT (10/27/2024 12:13 AM EDT) O2 Sat, Arterial 100 10/27/2024 12:[address] [facility] FIO2 30 10/27/2024 12:[address] [facility] pH, Arterial 7.32(L) 7.35 - 7.45 10/27/2024 12:[address] [facility] pCO2, Arterial 37 35 - 45 mm Hg 10/27/2024 12:[address] [facility] pO2, Arterial 137(H) 80 - 100 mm Hg 10/27/2024 12:[address] [facility] HCO3, Arterial 20(L) 22 - 26 mmol/L 10/27/2024 12:[address] [facility] CO2 Content,Arteri al 20(L) 23 - 27 mmol/L 10/27/2024 12:[address] [facility] Base Excess, Arterial -6.4(L) -2.0 - 3.0 mmol/L 10/27/2024 12:[address] [facility] %HBO2, Arterial 96.2 95.0 - 98.0 % 10/27/2024 12:[address] [facility] Carboxyhemoglo bin, Arterial 1.9 % 10/27/2024 12:[address] [facility] Comment: CARBOXYHEMOGLOBIN (CO) REFERENCE RANGES: Non-Smokers: <2 % Smokers: <8 % TOXIC: >20 % Methemoglobin, Arterial 1.5 0.0 - 1.5 % 10/27/2024 12:[address] [facility] Reduced hemoglobin, Arterial 0.4 0.0 - 5.0 % 10/27/2024 12:[address] [facility] Blood, Arterial 10/27/2024 1 2:13 AM EDT 10/27/2024 12:18 AM EDT us John Pina MD LAB BLOOD ORDERABLES Final Resu lt [facility] [address] * (ABNORMAL) TEG-Bypass/ECMO/Liver HN (Factor function, Platelet/Fibrin Clot Strength w/Clot Breakdown, Heparinase In All Channels) (10/27/2024 12:13 AM EDT) Citrated Kaolin Reaction Time (TEGECMOLIVER) 9.1 4.6 - 9.1 minutes 10/27/2024 1:[address] [facility] Citrated Kaolin W/Heparinase Reaction Time (TEGECMOLIVER) 9.7(H) 4.3 - 8.3 minutes 10/27/2024 1:[address] [facility] Citrated Kaolin Maximum Amplitude (TEGECMOLIVER) <40.0(L) 52.0 - 69.0 mm 10/27/2024 1:[address] [facility] Citrated Functional Fibrinogen W/Heparinase Maximum Amplitude(TEGEC MOLIVER) 11.9(L) 15.0 - 34.0 mm 10/27/2024 1:[address] [facility] Citrated Rapid Teg W/Heparinase Maximum Amplitude (TEGECMOLIVER) 31.6(L) 53.0 - 69.0 mm 10/27/2024 1:[address] [facility] Citrated Kaolin w/Heparinase Percent Lysis (TEGECMOLIVER) 0.0 0.0 - 3.2 % 10/27/2024 1:[address] [facility] Whole Blood (Citrate) 10/27/2024 12:13 AM EDT 10/27/2024 12:18 AM EDT us Kemar Sahni MD LAB BLOOD ORDERABLES Final Result [facility] [address] * (ABNORMAL) Lactic Acid (10/27/2024 12:13 AM EDT) Lactate 0.2(L) 0.5 - 2.2 mmol/L 10/27/2024 12:[address] [facility] Plasma 10/27/2024 12:1 3 AM EDT 10/27/2024 12:31 AM EDT Kemar Sahni MD LAB BLOOD ORDERABLES Final Result Performing Organization Address [facility] Co de Phone Number [facility] [address] * Magnesium (10/27/2024 12:13 AM EDT) Magnesium 1.8 1.5 - 2.5 mg/dL 10/27/2024 12:[address] [facility] Plasma 10/27/2024 12:1 3 AM EDT 10/27/2024 12:29 AM EDT Kemar Sahni MD LAB BLOOD ORDERABLES Final Result Performing Organization Address [facility] de Phone Number [facility] [address] * (ABNORMAL) Hepatic Function Panel (10/27/2024 12:13 AM EDT) Total Bilirubin 1.6(H) 0.0 - 1.5 mg/dL 10/27/2024 12:[address] [facility] Bilirubin, Direct 1.17(H) 0.00 - 0.40 mg/dL 10/27/2024 12:[address] [facility] AST 157(H) 13 - 39 U/L 10/27/2024 12:[address] [facility] ALT 261(H) 7 - 52 U/L 10/27/2024 12:[address] [facility] Alkaline Phosphatase 26(L) 36 - 125 U/L 10/27/2024 12:[address] [facility] Total Protein 3.8(L) 6.4 - 8.9 g/dL 10/27/2024 12:[address] [facility] Albumin 2.8(L) 3.5 - 5.7 g/dL 10/27/2024 12:[address] [facility] Bilirubin, Indirect 0.43 0.00 - 1.10 mg/dL 10/27/2024 12:[address] [facility] Plasma 10/27/2024 12:1 3 AM EDT 10/27/2024 12:29 AM EDT Kemar Sahni MD LAB BLOOD ORDERABLES Final Result Performing Organization Address [facility] de Phone Number [facility] [address] [facility]. [address] * (ABNORMAL) Protime-INR (10/27/2024 12:13 AM EDT) Protime 18.6(H) 12.1 - 15.1 seconds 10/27/2024 12:[address] [facility] INR 1.5(H) 0.9 - 1.1 10/27/2024 12:[address] [facility] Comment: RECOMMENDED THERAPEUTIC RANGES USING INR : Stable oral anticoagulant therapy: 2.0 - 3.0 Mechanical prosthetic heart valve: 2.5 - 3.5 Recurrent acute myocardial infarction: 2.5 - 3.5 Plasma 10/27/2024 12:1 3 AM EDT 10/27/2024 12:29 AM EDT Kemar Sahni MD LAB BLOOD ORDERABLES Final Result Performing Organization Address [facility] Co de Phone Number [facility] [address] [facility]. [address] * (ABNORMAL) CBC (10/27/2024 12:13 AM EDT) WBC 5.0 3.8 - 10.8 10E3/uL 10/27/2024 12:[address] [facility] RBC 2.70(L) 4.20 - 5.80 10E6/uL 10/27/2024 12:[address] [facility] Hemoglobin 8.5(L) 13.2 - 17.1 g/dL 10/27/2024 12:[address] [facility] Hematocrit 23.9(L) 38.5 - 50.0 % 10/27/2024 12:[address] [facility] MCV 88.5 80.0 - 100.0 fL 10/27/2024 12:[address] [facility] MCH 31.5 27.0 - 33.0 pg 10/27/2024 12:[address] [facility] MCHC 35.6 32.0 - 36.0 g/dL 10/27/2024 12:[address] [facility] RDW 20.6(H) 11.0 - 15.0 % 10/27/2024 12:[address] [facility] Platelets 35(L) 140 - 400 10E3/uL 10/27/2024 12:[address] [facility] Comment: CNV Specimen checked for clots. None detected. MPV 7.6 7.5 - 11.5 fL 10/27/2024 12:[address] [facility] Whole Blood 10/27/2024 12:1 3 AM EDT 10/27/2024 12:29 AM EDT us Kemar Sahni MD LAB BLOOD ORDERABLES Final Result [facility] [address] [place] [address], [facility] * (ABNORMAL) Renal Function Panel w/EGFR (10/27/2024 12:13 AM EDT) Sodium 141 133 - 146 mmol/L 10/27/2024 12:[address] [facility] Potassium 3.2(L) 3.5 - 5.3 mmol/L 10/27/2024 12:[address] [facility] Chloride 109 98 - 110 mmol/L 10/27/2024 12:[address] [facility] CO2 21 21 - 33 mmol/L 10/27/2024 12:[address] [facility] Anion Gap 11 3 - 16 mmol/L 10/27/2024 12:[address] [facility] BUN 64(H) 7 - 25 mg/dL 10/27/2024 12:[address] [facility] Creatinine 2.58(H) 0.60 - 1.30 mg/dL 10/27/2024 12:[address] [facility] Glucose 126(H) 70 - 100 mg/dL 10/27/2024 12:[address] [facility] Calcium 8.9 8.6 - 10.3 mg/dL 10/27/2024 12:[address] [facility] Phosphorus 5.3(H) 2.1 - 4.7 mg/dL 10/27/2024 12:[address] [facility] Albumin 2.8(L) 3.5 - 5.7 g/dL 10/27/2024 12:[address] [facility] Osmolality, Calculated 312(H) 278 - 305 mOsm/kg 10/27/2024 12:[address] [facility] EGFR 31 10/27/2024 12:[address] [facility] Comment:As of 2021, the estimated [...] MD LAB BLOOD ORDERABLES Final Result [facility] [address] [place] [id number], [facility] * (ABNORMAL) POC Glucose Monitoring Device (10/27/2024 12:08 AM EDT) [facility] Signature POC Glucose Monitoring Device 121(H) 70 - 100 mg/dL 10/27/2024 12:[address] [facility] Blood 10/27/2024 12:0 8 AM EDT 10/27/2024 12:08 AM EDT Semaj Mcnair III, MD POINT OF CARE TEST ORDERABLES Final Result Performing Organization Address City/[facility] Co de Phone Number [facility] [address] [place] [address] * (ABNORMAL) POC Glucose Monitoring Device (10/26/2024 11:15 PM EDT) [facility] POC Glucose Monitoring Device 120(H) 70 - 100 mg/dL 10/26/2024 11:[address] [facility] Blood 10/26/2024 11:1 5 PM EDT 10/26/2024 11:15 PM EDT Semja Mcnair III, MD POINT OF CARE TEST ORDERABLES Final Result Performing Organization Address [facility] Co de Phone Number [address] * (ABNORMAL) TEG-Bypass/ECMO/Liver HN (Factor function, Platelet/Fibrin Clot Strength w/Clot Breakdown, Heparinase In All Channels) (10/26/2024 10:36 PM EDT) Citrated Kaolin Reaction Time (TEGECMOLIVER) 10.0(H) 4.6 - 9.1 minutes 10/26/2024 11:[address] [facility] Citrated Kaolin W/Heparinase Reaction Time (TEGECMOLIVER) 10.2(H) 4.3 - 8.3 minutes 10/26/2024 11:[address] [facility] Citrated Kaolin Maximum Amplitude (TEGECMOLIVER) <40.0(L) 52.0 - 69.0 mm 10/26/2024 11:[address] [facility] Citrated Functional Fibrinogen W/Heparinase Maximum Amplitude(TEGEC MOLIVER) 11.3(L) 15.0 - 34.0 mm 10/26/2024 11:[address] [facility] Citrated Rapid Teg W/Heparinase Maximum Amplitude (TEGECMOLIVER) 41.8(L) 53.0 - 69.0 mm 10/26/2024 11:[address] [facility] Citrated Kaolin w/Heparinase Percent Lysis (TEGECMOLIVER) 0.0 0.0 - 3.2 % 10/26/2024 11:[address] [facility] Whole Blood (Citrate) 10/26/2024 10:36 PM EDT 10/26/2024 10:43 PM EDT Kemar Sahni MD LAB BLOOD ORDERABLES Final Result Performing Organization Address [facility] Co de Phone Number [facility] [address] [facility] * (ABNORMAL) POC Glucose Monitoring Device (10/26/2024 10:14 PM EDT) POC Glucose Monitoring Device 124(H) 70 - 100 mg/dL 10/26/2024 11:[address] [facility] Blood 10/26/2024 10:1 4 PM EDT 10/26/2024 11:11 PM EDT Semaj Mcnair III, MD POINT OF CARE TEST ORDERABLES Final Result [facility] [address] [facility] * (ABNORMAL) POC Glucose Monitoring Device (10/26/2024 9:16 PM EDT) POC Glucose Monitoring Device 119(H) 70 - 100 mg/dL 10/26/2024 9:[address] [facility] Blood 10/26/2024 9:16 PM EDT 10/26/2024 9:18 PM EDT us Semaj Mcnair III, MD POINT OF CARE TEST ORDERABLES Final Result Performing Organization Address City/[facility]/ZIP Co de Phone Number [facility] [address] * (ABNORMAL) POC Glucose Monitoring Device (10/26/2024 8:05 PM EDT) POC Glucose Monitoring Device 113(H) 70 - 100 mg/dL 10/26/2024 8:[address] [facility] Blood 10/26/2024 8:05 PM EDT 10/26/2024 8:06 PM EDT us Semaj Mcnair III, MD POINT OF CARE TEST ORDERABLES Final Result Performing Organization Address [facility] Co de Phone Number [facility] [address] [facility] * (ABNORMAL) POC Glucose Monitoring Device (10/26/2024 7:02 PM EDT) POC Glucose Monitoring Device 111(H) 70 - 100 mg/dL 10/26/2024 7:[address] [facility] Blood 10/26/2024 7:02 PM EDT 10/26/2024 7:03 PM EDT us Semaj Mcnair III, MD POINT OF CARE TEST ORDERABLES Final Result Performing Organization Address [facility]/ZIP Co de Phone Number [facility] [address] * Transfuse Cryoprecipitate Transfusion Rate: Per dept routine (10/26/2024 6:39 PM EDT) us John Pina MD NURSING TREATMENT ORDERABLES - BLOOD ADMIN Final Result EXTERNAL * Transfuse Cryoprecipitate Transfusion Rate: Per dept routine, 1 Units (10/26/2024 6:39 PM EDT) us John Pina MD NURSING TREATMENT ORDERABLES - BLOOD ADMIN Final Result Performing Organization Address [facility] Co de Phone Number EXTERNAL * (ABNORMAL) POC Glucose Monitoring Device (10/26/2024 6:33 PM EDT) POC Glucose Monitoring Device 110(H) 70 - 100 mg/dL 10/26/2024 6:[address] [facility] Blood 10/26/2024 6:33 PM EDT 10/26/2024 6:34 PM EDT us Semaj Mcnair III, MD POINT OF CARE TEST ORDERABLES Final Result Performing Organization Address [facility] Co de Phone Number [facility] [address] [facility] * Transfuse Cryoprecipitate Transfusion Rate: Per dept routine (10/26/2024 6:22 PM EDT) John Pina MD NURSING TREATMENT ORDERABLES - BLOOD ADMIN Final Result Performing Organization Address [facility] de Phone Number EXTERNAL * Transfuse Cryoprecipitate Transfusion Rate: Per dept routine, 1 Units (10/26/2024 6:22 PM EDT) us John Pina MD NURSING TREATMENT ORDERABLES - BLOOD ADMIN Final Result Performing Organization Address [facility] de Phone Number EXTERNAL * (ABNORMAL) POC Glucose Monitoring Device (10/26/2024 6:17 PM EDT) POC Glucose Monitoring Device 104(H) 70 - 100 mg/dL 10/26/2024 6:[address] [facility] Blood 10/26/2024 6:17 PM EDT 10/26/2024 6:18 PM EDT us Semaj Mcnair III, MD POINT OF CARE TEST ORDERABLES Final Result Performing Organization Address [facility] Co de Phone Number [facility] [address] * (ABNORMAL) POC Glucose Monitoring Device (10/26/2024 4:58 PM EDT) [facility] POC Glucose Monitoring Device 115(H) 70 - 100 mg/dL 10/26/2024 4:59 PM EDT [facility] Blood 10/26/2024 4:58 PM EDT 10/26/2024 4:58 PM EDT Semaj Mcnair III, MD POINT OF CARE TEST ORDERABLES Final Result Performing Organization Address [facility] de Phone Number [facility] [address] [place] [address] * (ABNORMAL) Calcium Free, Serum (10/26/2024 4:42 PM EDT) [facility] Free Calcium, Ser 5.67(H) 4.40 - 5.40 mg/dL 10/26/2024 4:[address] [facility] Comment:Free calcium levels vary inversely with pH by approximately 5% for each 0.1 unit of pH change. Assay results have been normalized to pH = 7.40. Serum 10/26/2024 4:42 PM EDT 10/26/2024 4:[address] [facility] - 10/26/2024 4:55 PM EDT This test has been developed and its performance characteristics determined by [facility] which is certified under the [...] lt Performing Organization Address [facility] Co de Phone Number [facility] [address] [facility] * Repeat Crossmatch (Recipient Sample) (10/26/2024 4:42 PM EDT) Pathologist [facility] Repeat Cx - Recipient The request and specimen(s) for this test have been received and transported to the [facility] at [address] [place] [address]. The [facility] will report results directly to the client. 10/26/2024 4:[address] [facility] Whole Blood 10/26/2024 4:42 PM EDT 10/26/2024 4:49 PM EDT Narrative [facility] - 10/26/2024 4:49 PM EDT To be sent to [facility] for Donor UNOS#[id number] cross match with Blair Gilbert Sveta Judge MD LAB BLOOD ORDERABLES Final Resu lt [facility] [address] * (ABNORMAL) Lactic Acid (10/26/2024 4:42 PM EDT) Lactate 0.3(L) 0.5 - 2.2 mmol/L 10/26/2024 5:[address] [facility] Plasma 10/26/2024 4:42 PM EDT 10/26/2024 4:47 PM EDT Kemar Sahni MD LAB BLOOD ORDERABLES Final Result Performing Organization Address City/[facility]/ZIP Co de Phone Number [facility] [address] [facility] * Magnesium (10/26/2024 4:42 PM EDT) Magnesium 2.0 1.5 - 2.5 mg/dL 10/26/2024 5:[address] [facility] Plasma 10/26/2024 4:42 PM EDT 10/26/2024 4:47 PM EDT Kemar Sahni MD LAB BLOOD ORDERABLES Final Result [facility] [address] * (ABNORMAL) Hepatic Function Panel (10/26/2024 4:42 PM EDT) Total Bilirubin 2.3(H) 0.0 - 1.5 mg/dL 10/26/2024 5:[address] [facility] Bilirubin, Direct 1.85(H) 0.00 - 0.40 mg/dL 10/26/2024 5:[address] [facility] AST 374(H) 13 - 39 U/L 10/26/2024 5:[address] [facility] ALT 458(H) 7 - 52 U/L 10/26/2024 5:[address] [facility] Alkaline Phosphatase 39 36 - 125 U/L 10/26/2024 5:[address] [facility] Total Protein 3.8(L) 6.4 - 8.9 g/dL 10/26/2024 5:[address] [facility] Albumin 3.0(L) 3.5 - 5.7 g/dL 10/26/2024 5:[address] [facility] Bilirubin, Indirect 0.45 0.00 - 1.10 mg/dL 10/26/2024 5:[address] [facility] Plasma 10/26/2024 4:42 PM EDT 10/26/2024 4:47 PM EDT Kemar Sahni MD LAB BLOOD ORDERABLES Final Result [facility] [address] * (ABNORMAL) Protime-INR (10/26/2024 4:42 PM EDT) Protime 20.3(H) 12.1 - 15.1 seconds 10/26/2024 5:[address] [facility] INR 1.7(H) 0.9 - 1.1 10/26/2024 5:[address] [facility] Comment: RECOMMENDED THERAPEUTIC RANGES USING INR : Stable oral anticoagulant therapy: 2.0 - 3.0 Mechanical prosthetic heart valve: 2.5 - 3.5 Recurrent acute myocardial infarction: 2.5 - 3.5 Plasma 10/26/2024 4:42 PM EDT 10/26/2024 4:47 PM EDT Kemra Sahni MD LAB BLOOD ORDERABLES Final Result [facility] [address] [place] [address], [facility] * (ABNORMAL) CBC (10/26/2024 4:42 PM EDT) WBC 10.0 3.8 - 10.8 10E3/uL 10/26/2024 5:[address] [facility] RBC 3.44(L) 4.20 - 5.80 10E6/uL 10/26/2024 5:[address] [facility] Hemoglobin 10.5(L) 13.2 - 17.1 g/dL 10/26/2024 5:[address] [facility] Hematocrit 30.2(L) 38.5 - 50.0 % 10/26/2024 5:[address] [facility] MCV 87.7 80.0 - 100.0 fL 10/26/2024 5:[address] [facility] MCH 30.6 27.0 - 33.0 pg 10/26/2024 5:[address] [facility] MCHC 34.8 32.0 - 36.0 g/dL 10/26/2024 5:[address] [facility] RDW 20.1(H) 11.0 - 15.0 % 10/26/2024 5:[address] [facility] Platelets 48(L) 140 - 400 10E3/uL 10/26/2024 5:[address] [facility] Comment:Specimen checked for clots. None detected. MPV 7.9 7.5 - 11.5 fL 10/26/2024 5:[address] [facility] Whole Blood 10/26/2024 4:42 PM EDT 10/26/2024 4:47 PM EDT us Kemar Sahni MD LAB BLOOD ORDERABLES Final Result [facility] [address] [place] [address], [facility] * (ABNORMAL) Renal Function Panel w/EGFR (10/26/2024 4:42 PM EDT) Sodium 142 133 - 146 mmol/L 10/26/2024 5:[address] [facility] Potassium 3.3(L) 3.5 - 5.3 mmol/L 10/26/2024 5:[address] [facility] Chloride 109 98 - 110 mmol/L 10/26/2024 5:[address] [facility] CO2 23 21 - 33 mmol/L 10/26/2024 5:[address] [facility] Anion Gap 10 3 - 16 mmol/L 10/26/2024 5:[address] [facility] BUN 63(H) 7 - 25 mg/dL 10/26/2024 5:[address] [facility] Creatinine 2.85(H) 0.60 - 1.30 mg/dL 10/26/2024 5:[address] [facility] Glucose 127(H) 70 - 100 mg/dL 10/26/2024 5:[address] [facility] Calcium 8.9 8.6 - 10.3 mg/dL 10/26/2024 5:[address] [facility] Phosphorus 4.4 2.1 - 4.7 mg/dL 10/26/2024 5:[address] [facility] Albumin 3.0(L) 3.5 - 5.7 g/dL 10/26/2024 5:[address] [facility] Osmolality, Calculated 314(H) 278 - 305 mOsm/kg 10/26/2024 5:[address] [facility] EGFR 28 10/26/2024 5:[address] [facility] Comment:As of 2021, the estimated [...] ORDERABLES Final Result Performing Organization Address City/[facility] Co de Phone Number [facility] [address] * (ABNORMAL) POC Glucose Monitoring Device (10/26/2024 3:54 PM EDT) POC Glucose Monitoring Device 126(H) 70 - 100 mg/dL 10/26/2024 3:[address] [facility] Blood 10/26/2024 3:54 PM EDT 10/26/2024 3:55 PM EDT Semaj Mcnair III, MD POINT OF CARE TEST ORDERABLES Final Result [facility] [address] [facility] * (ABNORMAL) POC Glucose Monitoring Device (10/26/2024 3:06 PM EDT) POC Glucose Monitoring Device 144(H) 70 - 100 mg/dL 10/26/2024 3:[address] [facility] Blood 10/26/2024 3:06 PM EDT 10/26/2024 3:13 PM EDT Semaj Mcnair III, MD POINT OF CARE TEST ORDERABLES Final Result [facility] [address] * (ABNORMAL) TEG-Bypass/ECMO/Liver HN (Factor function, Platelet/Fibrin Clot Strength w/Clot Breakdown, Heparinase In All Channels) (10/26/2024 3:03 PM EDT) [facility] Citrated Kaolin Reaction Time (TEGECMOLIVER) 8.2 4.6 - 9.1 minutes 10/26/2024 4:[address] [facility] Citrated Kaolin W/Heparinase Reaction Time (TEGECMOLIVER) 8.2 4.3 - 8.3 minutes 10/26/2024 4:[address] [facility] Citrated Kaolin Maximum Amplitude (TEGECMOLIVER) 41.7(L) 52.0 - 69.0 mm 10/26/2024 4:[address] [facility] Citrated Functional Fibrinogen W/Heparinase Maximum Amplitude(TEGEC MOLIVER) 11.4(L) 15.0 - 34.0 mm 10/26/2024 4:[address] [facility] Citrated Rapid Teg W/Heparinase Maximum Amplitude (TEGECMOLIVER) 38.6(L) 53.0 - 69.0 mm 10/26/2024 4:[address] [facility] Citrated Kaolin w/Heparinase Percent Lysis (TEGECMOLIVER) 0.0 0.0 - 3.2 % 10/26/2024 4:[address] [facility] Whole Blood (Citrate) 10/26/2024 3:03 PM EDT 10/26/2024 3:10 PM EDT us Jani Mooney MD LAB BLOOD ORDERABLES Final Resul t [facility] [address] [employer] [place] [address], [facility] * ECG 12 lead (MUSE) (10/26/2024 2:19 PM EDT) 10/26/2024 2:19 PM EDT Narrative MUSE - 10/27/2024 10:09 AM EDT Ventricular Rate: 105 BPM Atrial Rate: 105 BPM P-R Interval: 128 ms QRS Duration: 94 ms QT: 474 ms QTc: 626 ms R [place]: -37 degrees T [place]: 35 degrees Diagnosis Line: Critical Test Result: Long QTc ^ SINUS TACHYCARDIA ^ LEFT AXIS DEVIATION, LEFT ANTERIOR HEMIBLOCK ^ PROLONGED QT ^ ABNORMAL ECG ^ ^ Confirmed by MD HA, ERICK ([facility]) on 10/27/2024 10:09:25 AM Quinten Best MD ECG ORDERABLES Final Result Performing Organization Address [facility] Co de Phone Number MUSE * (ABNORMAL) POC Glucose Monitoring Device (10/26/2024 2:00 PM EDT) POC Glucose Monitoring Device 183(H) 70 - 100 mg/dL 10/26/2024 2:[address] [facility] Blood 10/26/2024 2:00 PM EDT 10/26/2024 2:01 PM EDT Semaj Mcnair III, MD POINT OF CARE TEST ORDERABLES Final Result Performing Organization Address [facility] Phone Number [facility] [address] * (ABNORMAL) POC Glucose Monitoring Device (10/26/2024 1:05 PM EDT) POC Glucose Monitoring Device 212(H) 70 - 100 mg/dL 10/26/2024 1:[address] [facility] Blood 10/26/2024 1:05 PM EDT 10/26/2024 1:06 PM EDT Semaj Mcnair III, MD POINT OF CARE TEST ORDERABLES Final Result Performing Organization Address [facility] Co de Phone Number [facility] [address] * Transfuse Cryoprecipitate Has consent been obtained? Yes; Transfusion Rate: Per dept routine (10/26/2024 12:25 PM EDT) Shay Sifuentes MD NURSING TREATMENT ORDERABLES - BLOOD ADMIN Final Result Performing Organization Address [facility] de Phone Number EXTERNAL * Transfuse Cryoprecipitate Has consent been obtained? Yes; Transfusion Rate: Per dept routine, 1 Units (10/26/2024 12:25 PM EDT) Shay Sifuentes MD NURSING TREATMENT ORDERABLES - BLOOD ADMIN Final Result Performing Organization Address [facility] de Phone Number EXTERNAL * (ABNORMAL) POC Glucose Monitoring Device (10/26/2024 12:06 PM EDT) POC Glucose Monitoring Device 226(H) 70 - 100 mg/dL 10/26/2024 12:[address] [facility] Blood 10/26/2024 12:0 6 PM EDT 10/26/2024 12:07 PM EDT Result [facility] Semaj Mcnair III, MD POINT OF CARE TEST ORDERABLES Final Result Performing Organization Address [facility] de Phone Number [facility] [address] * Transfuse Cryoprecipitate Transfusion Rate: Per dept routine (10/26/2024 12:01 PM EDT) John Pina MD NURSING TREATMENT ORDERABLES - BLOOD ADMIN Final Result Performing Organization Address [facility] de Phone Number EXTERNAL * Transfuse Cryoprecipitate Transfusion Rate: Per dept routine, 1 Units (10/26/2024 12:01 PM EDT) John Pina MD NURSING TREATMENT ORDERABLES - BLOOD ADMIN Final Result Performing Organization Address [facility] de Phone Number EXTERNAL * Lactic Acid (10/26/2024 10:48 AM EDT) Lactate 1.2 0.5 - 2.2 mmol/L 10/26/2024 11:[address] [facility] Plasma 10/26/2024 10:4 8 AM EDT 10/26/2024 10:53 AM EDT Kemar Sahni MD LAB BLOOD ORDERABLES Final Result [facility] [address] * Magnesium (10/26/2024 10:48 AM EDT) Magnesium 2.0 1.5 - 2.5 mg/dL 10/26/2024 11:[address] [facility] Plasma 10/26/2024 10:4 8 AM EDT 10/26/2024 10:53 AM EDT Kemar Sahni MD LAB BLOOD ORDERABLES Final Result Performing Organization Address [facility] de Phone Number [facility] [address] * (ABNORMAL) Hepatic Function Panel (10/26/2024 10:48 AM EDT) Total Bilirubin 5.9(H) 0.0 - 1.5 mg/dL 10/26/2024 11:[address] [facility] Bilirubin, Direct 4.74(H) 0.00 - 0.40 mg/dL 10/26/2024 11:[address] [facility] AST 872(H) 13 - 39 U/L 10/26/2024 11:[address] [facility] ALT 736(H) 7 - 52 U/L 10/26/2024 11:26 AM EDT [facility] Alkaline Phosphatase 56 36 - 125 U/L 10/26/2024 11:[address] [facility] Total Protein 3.5(L) 6.4 - 8.9 g/dL 10/26/2024 11:[address] [facility] Albumin 2.5(L) 3.5 - 5.7 g/dL 10/26/2024 11:[address] [facility] Bilirubin, Indirect 1.16(H) 0.00 - 1.10 mg/dL 10/26/2024 11:[address] [facility] Plasma 10/26/2024 10:4 8 AM EDT 10/26/2024 10:53 AM EDT Kemar Sahni MD LAB BLOOD ORDERABLES Final Result Performing Organization Address [facility] de Phone Number [facility] [address] [place] [address]. [address] * (ABNORMAL) Protime-INR (10/26/2024 10:48 AM EDT) Protime 23.0(H) 12.1 - 15.1 seconds 10/26/2024 11:[address] [facility] INR 2.0(H) 0.9 - 1.1 10/26/2024 11:[address] [facility] Comment: RECOMMENDED THERAPEUTIC RANGES USING INR : Stable oral anticoagulant therapy: 2.0 - 3.0 Mechanical prosthetic heart valve: 2.5 - 3.5 Recurrent acute myocardial infarction: 2.5 - 3.5 Plasma 10/26/2024 10:4 8 AM EDT 10/26/2024 10:53 AM EDT Result [facility] Kemar Sahni MD LAB BLOOD ORDERABLES Final Result Performing Organization Address [facility] de Phone Number [facility] [address] [facility] * (ABNORMAL) CBC (10/26/2024 10:48 AM EDT) WBC 17.3(H) 3.8 - 10.8 10E3/uL 10/26/2024 11:[address] [facility] RBC 4.22 4.20 - 5.80 10E6/uL 10/26/2024 11:[address] [facility] Hemoglobin 12.8(L) 13.2 - 17.1 g/dL 10/26/2024 11:[address] [facility] Hematocrit 37.2(L) 38.5 - 50.0 % 10/26/2024 11:[address] [facility] MCV 88.3 80.0 - 100.0 fL 10/26/2024 11:[address] [facility] MCH 30.4 27.0 - 33.0 pg 10/26/2024 11:[address] [facility] MCHC 34.4 32.0 - 36.0 g/dL 10/26/2024 11:[address] [facility] RDW 20.8(H) 11.0 - 15.0 % 10/26/2024 11:[address] [facility] Platelets 109(L) 140 - 400 10E3/uL 10/26/2024 11:[address] [facility] MPV 7.5 7.5 - 11.5 fL 10/26/2024 11:[address] [facility] Whole Blood 10/26/2024 10:4 8 AM EDT 10/26/2024 10:53 AM EDT Kemar Sahni MD LAB BLOOD ORDERABLES Final Result [facility] [address] [place] [address], [facility] * (ABNORMAL) Blood gas, arterial (10/26/2024 10:48 AM EDT) O2 Sat, Arterial 97 10/26/2024 10:[address] [facility] FIO2 35% 10/26/2024 10:[address] [facility] pH, Arterial 7.37 7.35 - 7.45 10/26/2024 10:[address] [facility] pCO2, Arterial 36 35 - 45 mm Hg 10/26/2024 10:[address] [facility] pO2, Arterial 91 80 - 100 mm Hg 10/26/2024 10:[address] [facility] HCO3, Arterial 22 22 - 26 mmol/L 10/26/2024 10:[address] [facility] CO2 Content,Arteri al 22(L) 23 - 27 mmol/L 10/26/2024 10:[address] [facility] Base Excess, Arterial -3.9(L) -2.0 - 3.0 mmol/L 10/26/2024 10:[address] [facility] %HBO2, Arterial 94.8(L) 95.0 - 98.0 % 10/26/2024 10:[address] [facility] Carboxyhemoglo bin, Arterial 1.9 % 10/26/2024 10:[address] [facility] Comment: CARBOXYHEMOGLOBIN (CO) REFERENCE RANGES: Non-Smokers: <2 % Smokers: <8 % TOXIC: >20 % Methemoglobin, Arterial 0.7 0.0 - 1.5 % 10/26/2024 10:[address] [facility] Reduced hemoglobin, Arterial 2.5 0.0 - 5.0 % 10/26/2024 10:[address] [facility] Blood, Arterial 10/26/2024 1 0:48 AM EDT 10/26/2024 10:52 AM EDT us Shay Sifuentes MD LAB BLOOD ORDERABLES Final Resu lt [facility] [address] * (ABNORMAL) Renal Function Panel w/EGFR (10/26/2024 10:48 AM EDT) Sodium 139 133 - 146 mmol/L 10/26/2024 11:[address] [facility] Potassium 2.9(LL) 3.5 - 5.3 mmol/L 10/26/2024 11:[address] [facility] Comment:K CRITICAL VALUE WAS PREVIOUSLY CALLED Chloride 107 98 - 110 mmol/L 10/26/2024 11:[address] [facility] CO2 22 21 - 33 mmol/L 10/26/2024 11:[address] [facility] [facility] Anion Gap 10 3 - 16 mmol/L 10/26/2024 11:[address] [facility] BUN 61(H) 7 - 25 mg/dL 10/26/2024 11:[address] [facility] Creatinine 2.78(H) 0.60 - 1.30 mg/dL 10/26/2024 11:[address] [facility] Glucose 253(H) 70 - 100 mg/dL 10/26/2024 11:[address] [facility] Calcium 8.8 8.6 - 10.3 mg/dL 10/26/2024 11:[address] [facility] Phosphorus 4.1 2.1 - 4.7 mg/dL 10/26/2024 11:[address] [facility] Albumin 2.5(L) 3.5 - 5.7 g/dL 10/26/2024 11:[address] [facility] Osmolality, Calculated 314(H) 278 - 305 mOsm/kg 10/26/2024 11:[address] [facility] EGFR 28 10/26/2024 11:[address] [facility] Comment:As of 2021, the estimated [...] MD LAB BLOOD ORDERABLES Final Result [facility] [address] [place] [address], [facility] * (ABNORMAL) POC Glucose Monitoring Device (10/26/2024 10:47 AM EDT) POC Glucose Monitoring Device 234(H) 70 - 100 mg/dL 10/26/2024 10:[address] [facility] Blood 10/26/2024 10:4 7 AM EDT 10/26/2024 10:48 AM EDT us Semaj Mcnair III, MD POINT OF CARE TEST ORDERABLES Final Result Performing Organization Address [facility] Co de Phone Number [facility] [address] [facility]. [address] * CARISA Rhythm Strip - Scan (10/26/2024 10:45 AM EDT) us Scanning [employer]ch[employer] SCAN DOCS - NO RESULTS Final Res ult * (ABNORMAL) POC Glucose Monitoring Device (10/26/2024 10:08 AM EDT) POC Glucose Monitoring Device 235(H) 70 - 100 mg/dL 10/26/2024 10:[address] [facility] Blood 10/26/2024 10:0 8 AM EDT 10/26/2024 10:09 AM EDT us Semaj Mcnair III, MD POINT OF CARE TEST ORDERABLES Final Result Performing Organization Address [facility] Co de Phone Number [facility] [address] [facility]. [address] * (ABNORMAL) POC Glucose Monitoring Device (10/26/2024 8:57 AM EDT) POC Glucose Monitoring Device 232(H) 70 - 100 mg/dL 10/26/2024 8:[address] [facility] Blood 10/26/2024 8:57 AM EDT 10/26/2024 8:58 AM EDT us Semaj Mcnair III, MD POINT OF CARE TEST ORDERABLES Final Result Performing Organization Address City/[facility] Co de Phone Number [facility] [address] [facility]. [address] * ECG 12 lead (MUSE) (10/26/2024 8:16 AM EDT) 10/26/2024 8:16 AM EDT Narrative MUSE - 10/27/2024 10:09 AM EDT Ventricular Rate: 112 BPM QRS Duration: 96 ms QT: 452 ms QTc: 616 ms R [place]: -41 degrees T [place]: 40 degrees Diagnosis Line: Critical Test Result: Long QTc ^ SINUS TACHYCARDIA OCCASIONAL PREMATURE VENTRICULAR COMPLEXES ^ LEFT AXIS DEVIATION, LEFT ANTERIOR HEMIBLOCK ^ PROLONGED QT ^ ABNORMAL ECG ^ ^ Confirmed by MD HA, [facility] ([id number]) on 10/27/2024 10:09:18 AM us [...] Glucose Monitoring Device (10/26/2024 7:59 AM EDT) [facility] POC Glucose Monitoring Device 229(H) 70 - 100 mg/dL 10/26/2024 8:[address] [facility] Blood 10/26/2024 7:59 AM EDT 10/26/2024 8:00 AM EDT Semaj Mcnair III, MD POINT OF CARE TEST ORDERABLES Final Result [facility] [address] [place], [place] [address] * (ABNORMAL) TEG-Bypass/ECMO/Liver HN (Factor function, Platelet/Fibrin Clot Strength w/Clot Breakdown, Heparinase In All Channels) (10/26/2024 7:59 AM EDT) [facility] Signature Citrated Kaolin Reaction Time (TEGECMOLIVER) 8.2 4.6 - 9.1 minutes 10/26/2024 10:[address] [facility] Citrated Kaolin W/Heparinase Reaction Time (TEGECMOLIVER) 8.1 4.3 - 8.3 minutes 10/26/2024 10:[address] [facility] Citrated Kaolin Maximum Amplitude (TEGECMOLIVER) 46.8(L) 52.0 - 69.0 mm 10/26/2024 10:[address] [facility] Citrated Functional Fibrinogen W/Heparinase Maximum Amplitude(TEGEC MOLIVER) 10.5(L) 15.0 - 34.0 mm 10/26/2024 10:[address] [facility] Citrated Rapid Teg W/Heparinase Maximum Amplitude (TEGECMOLIVER) 45.5(L) 53.0 - 69.0 mm 10/26/2024 10:[address] [facility] Citrated Kaolin w/Heparinase Percent Lysis (TEGECMOLIVER) 0.0 0.0 - 3.2 % 10/26/2024 10:[address] [facility] Whole Blood (Citrate) 10/26/2024 7:59 AM EDT 10/26/2024 8:05 AM EDT Shay Sifuentes MD LAB BLOOD ORDERABLES Final Resu lt [facility] [address] * (ABNORMAL) POC Glucose Monitoring Device (10/26/2024 6:12 AM EDT) POC Glucose Monitoring Device 196(H) 70 - 100 mg/dL 10/26/2024 6:13 AM EDT [facility] Blood 10/26/2024 6:12 AM EDT 10/26/2024 6:13 AM EDT Semaj Mcnair III, MD POINT OF CARE TEST ORDERABLES Final Result [facility] [address] [facility]. [address] * Lactic Acid (10/26/2024 6:10 AM EDT) Lactate 1.2 0.5 - 2.2 mmol/L 10/26/2024 6:[address] [facility] Plasma 10/26/2024 6:10 AM EDT 10/26/2024 6:19 AM EDT Sveta Judge MD LAB BLOOD ORDERABLES Final Resu lt Performing Organization Address City/[facility]/ZIP Co de Phone Number [facility] [address] * (ABNORMAL) Fibrinogen (10/26/2024 6:10 AM EDT) Fibrinogen 160(L) 218 - 406 mg/dL 10/26/2024 6:[address] [facility] Plasma 10/26/2024 6:10 AM EDT 10/26/2024 6:26 AM EDT Sveta Judge MD LAB BLOOD ORDERABLES Final Resu lt Performing Organization Address [facility] Co de Phone Number [facility] [address] * (ABNORMAL) Protime-INR (10/26/2024 6:10 AM EDT) Protime 25.0(H) 12.1 - 15.1 seconds 10/26/2024 6:[address] [facility] INR 2.2(H) 0.9 - 1.1 10/26/2024 6:[address] [facility] Comment: RECOMMENDED THERAPEUTIC RANGES USING INR : Stable oral anticoagulant therapy: 2.0 - 3.0 Mechanical prosthetic heart valve: 2.5 - 3.5 Recurrent acute myocardial infarction: 2.5 - 3.5 Plasma 10/26/2024 6:10 AM EDT 10/26/2024 6:26 AM EDT Sveta Judge MD LAB BLOOD ORDERABLES Final Resu lt Performing Organization Address [facility]/ZIP Co de Phone Number [facility] [address] * (ABNORMAL) Blood gas, arterial (10/26/2024 6:10 AM EDT) O2 Sat, Arterial 98 10/26/2024 6:[address] [facility] FIO2 60 10/26/2024 6:[address] [facility] pH, Arterial 7.27(L) 7.35 - 7.45 10/26/2024 6:[address] [facility] pCO2, Arterial 47(H) 35 - 45 mm Hg 10/26/2024 6:[address] [facility] pO2, Arterial 127(H) 80 - 100 mm Hg 10/26/2024 6:[address] [facility] HCO3, Arterial 21(L) 22 - 26 mmol/L 10/26/2024 6:[address] [facility] CO2 Content,Arteri al 23 23 - 27 mmol/L 10/26/2024 6:[address] [facility] Base Excess, Arterial -5.4(L) -2.0 - 3.0 mmol/L 10/26/2024 6:[address] [facility] %HBO2, Arterial 94.6(L) 95.0 - 98.0 % 10/26/2024 6:[address] [facility] Carboxyhemoglo bin, Arterial 2.0 % 10/26/2024 6:[address] [facility] Comment: CARBOXYHEMOGLOBIN (CO) REFERENCE RANGES: Non-Smokers: <2 % Smokers: <8 % TOXIC: >20 % Methemoglobin, Arterial 1.6(H) 0.0 - 1.5 % 10/26/2024 6:[address] [facility] Reduced hemoglobin, Arterial 1.8 0.0 - 5.0 % 10/26/2024 6:[address] [facility] Blood, Arterial 10/26/2024 6 :10 AM EDT 10/26/2024 6:20 AM EDT us Sveta Judge MD LAB BLOOD ORDERABLES Final Resu lt [facility] [address] [place] [address], [facility] * Magnesium (10/26/2024 6:10 AM EDT) Magnesium 1.5 1.5 - 2.5 mg/dL 10/26/2024 7:[address] [facility] Plasma 10/26/2024 6:10 AM EDT 10/26/2024 6:23 AM EDT Sveta Judge MD LAB BLOOD ORDERABLES Final Resu lt [facility] [address] * (ABNORMAL) Hepatic Function Panel (10/26/2024 6:10 AM EDT) Total Bilirubin 6.2(H) 0.0 - 1.5 mg/dL 10/26/2024 7:[address] [facility] Bilirubin, Direct 5.26(H) 0.00 - 0.40 mg/dL 10/26/2024 7:[address] [facility] AST 1,071(H) 13 - 39 U/L 10/26/2024 7:[address] [facility] ALT 805(H) 7 - 52 U/L 10/26/2024 7:[address] [facility] Alkaline Phosphatase 55 36 - 125 U/L 10/26/2024 7:[address] [facility] Total Protein <3.0(L) 6.4 - 8.9 g/dL 10/26/2024 7:[address] [facility] Albumin 1.9(L) 3.5 - 5.7 g/dL 10/26/2024 7:[address] [facility] Bilirubin, Indirect 0.94 0.00 - 1.10 mg/dL 10/26/2024 7:[address] [facility] Plasma 10/26/2024 6:10 AM EDT 10/26/2024 6:23 AM EDT Sveta Judge MD LAB BLOOD ORDERABLES Final Resu lt [facility] [address] * (ABNORMAL) Renal Function Panel w/EGFR (10/26/2024 6:10 AM EDT) Sodium 141 133 - 146 mmol/L 10/26/2024 7:[address] [facility] Potassium 2.8(LL) 3.5 - 5.3 mmol/L 10/26/2024 7:[address] [facility] Comment:Critical value previ ously called. Chloride 106 98 - 110 mmol/L 10/26/2024 7:[address] [facility] CO2 25 21 - 33 mmol/L 10/26/2024 7:[address] [facility] Anion Gap 10 3 - 16 mmol/L 10/26/2024 7:[address] [facility] BUN 57(H) 7 - 25 mg/dL 10/26/2024 7:[address] [facility] Creatinine 2.70(H) 0.60 - 1.30 mg/dL 10/26/2024 7:[address] [facility] Glucose 210(H) 70 - 100 mg/dL 10/26/2024 7:[address] [facility] Calcium 8.7 8.6 - 10.3 mg/dL 10/26/2024 7:[address] [facility] Phosphorus 5.4(H) 2.1 - 4.7 mg/dL 10/26/2024 7:[address] [facility] Albumin 1.9(L) 3.5 - 5.7 g/dL 10/26/2024 7:[address] [facility] Osmolality, Calculated 314(H) 278 - 305 mOsm/kg 10/26/2024 7:[address] [facility] EGFR 29 10/26/2024 7:[address] [facility] Comment:As of 2021, the estimated [...] MD LAB BLOOD ORDERABLES Final Resu lt [facility] [address] [place] [id number] * (ABNORMAL) CBC (10/26/2024 6:10 AM EDT) WBC 14.8(H) 3.8 - 10.8 10E3/uL 10/26/2024 6:[address] [facility] RBC 4.04(L) 4.20 - 5.80 10E6/uL 10/26/2024 6:[address] [facility] Hemoglobin 12.7(L) 13.2 - 17.1 g/dL 10/26/2024 6:[address] [facility] Hematocrit 35.9(L) 38.5 - 50.0 % 10/26/2024 6:[address] [facility] MCV 89.0 80.0 - 100.0 fL 10/26/2024 6:[address] [facility] MCH 31.3 27.0 - 33.0 pg 10/26/2024 6:[address] [facility] MCHC 35.2 32.0 - 36.0 g/dL 10/26/2024 6:[address] [facility] RDW 19.7(H) 11.0 - 15.0 % 10/26/2024 6:[address] [facility] Platelets 107(L) 140 - 400 10E3/uL 10/26/2024 6:[address] [facility] MPV 7.4(L) 7.5 - 11.5 fL 10/26/2024 6:[address] [facility] Whole Blood 10/26/2024 6:10 AM EDT 10/26/2024 6:26 AM EDT Sveta Judge MD LAB BLOOD ORDERABLES Final Resu lt Performing Organization Address [facility]/ZIP Co de Phone Number [facility] [address] * (ABNORMAL) POC INR (10/26/2024 5:16 AM EDT) Prothrombin Time INR, POC 2.4(H) 0.8 - 1.4 10/27/2024 6:[address] [facility] Comment: Test results may vary using [...] Result Performing Organization Address [facility] Co de Phone Number [facility] [address] [facility]. [address] * POC Sample Type (10/26/2024 5:14 AM EDT) Pathologist [facility] POC Sample Type Arterial 10/26/2024 5:[address] [facility] Blood, Arterial 10/26/2024 5 :14 AM EDT 10/26/2024 5:31 AM EDT Semaj Mcnair III, MD POINT OF CARE TEST ORDERABLES Final Result Performing Organization Address City/[facility]/ZIP Co de Phone Number [facility] [address] [facility] * POC Anion Gap (10/26/2024 5:14 AM EDT) POC Anion Gap, Arterial 12 3 - 16 mmol/L 10/26/2024 5:[address] [facility] Blood, Arterial 10/26/2024 5 :14 AM EDT 10/26/2024 5:31 AM EDT us Semaj Mcnair III, MD POINT OF CARE TEST ORDERABLES Final Result Performing Organization Address City/[facility]/ZIP Co de Phone Number [facility] [address] [facility]. [address] * POC Chloride (10/26/2024 5:14 AM EDT) POC Chloride 104 98 - 110 mmol/L 10/26/2024 5:[address] [facility] Blood, Arterial 10/26/2024 5 :14 AM EDT 10/26/2024 5:31 AM EDT us Semaj Mcnair III, MD POINT OF CARE TEST ORDERABLES Final Result Performing Organization Address City/[facility]/ZIP Co de Phone Number [facility] [address] [employer] [facility]. [address] * (ABNORMAL) POC Hemoglobin (10/26/2024 5:14 AM EDT) POC Hemoglobin 9.5(L) 14.0 - 18.0 g/dL 10/26/2024 5:[address] [facility] Blood, Arterial 10/26/2024 5 :14 AM EDT 10/26/2024 5:31 AM EDT us Semaj Mcnair III, MD POINT OF CARE TEST ORDERABLES Final Result [facility] [address] [employer] [facility]. [address] * (ABNORMAL) POC hematocrit (10/26/2024 5:14 AM EDT) POC Hematocrit 28.0(L) 40 - 52 % 10/26/2024 5:[address] [facility] Blood, Arterial 10/26/2024 5 :14 AM EDT 10/26/2024 5:31 AM EDT us Semja Mcnair III, MD POINT OF CARE TEST ORDERABLES Final Result Performing Organization Address City/[facility] Co de Phone Number [facility] [address] [employer] [facility]. [address] * POC Lactate (10/26/2024 5:14 AM EDT) POC Lactate 1.76 0.50 - 2.20 mmol/L 10/26/2024 5:[address] [facility] Blood, Arterial 10/26/2024 5 :14 AM EDT 10/26/2024 5:31 AM EDT us Semaj Mcnair III, MD POINT OF CARE TEST ORDERABLES Final Result Performing Organization Address [facility] Co de Phone Number [facility] [address] [place] [employer] [facility]. [address] * (ABNORMAL) POC Glucose (10/26/2024 5:14 AM EDT) POC Glucose, Arterial 183(H) 70 - 100 mg/dL 10/26/2024 5:[address] [facility] Blood, Arterial 10/26/2024 5 :14 AM EDT 10/26/2024 5:31 AM EDT us Semaj Mcnair III, MD POINT OF CARE TEST ORDERABLES Final Result Performing Organization Address City/[facility] Co de Phone Number [facility] [address] [place] [employer] [facility]. [address] * (ABNORMAL) POC Ionized Calcium (10/26/2024 5:14 AM EDT) POC Ionized Calcium 5.50(H) 4.50 - 5.30 mg/dL 10/26/2024 5:[address] [facility] Blood, Arterial 10/26/2024 5 :14 AM EDT 10/26/2024 5:31 AM EDT us Semaj Mcnair III, MD POINT OF CARE TEST ORDERABLES Final Result Performing Organization Address [facility] Co de Phone Number [facility] [address] [employer] [facility]. [address] * (ABNORMAL) POC Potassium (10/26/2024 5:14 AM EDT) POC Potassium 2.8(LL) 3.5 - 5.3 mmol/L 10/26/2024 5:[address] [facility] Blood, Arterial 10/26/2024 5 :14 AM EDT 10/26/2024 5:31 AM EDT us Semja cMnair III, MD POINT OF CARE TEST ORDERABLES Final Result Performing Organization Address [facility] Co de Phone Number [facility] [address] [place] [employer] [facility]. [address] * POC Sodium (10/26/2024 5:14 AM EDT) POC Sodium 138 136 - 146 mmol/L 10/26/2024 5:[address] [facility] Blood, Arterial 10/26/2024 5 :14 AM EDT 10/26/2024 5:31 AM EDT us Semaj Mcnair III, MD POINT OF CARE TEST ORDERABLES Final Result Performing Organization Address City/[facility] Co de Phone Number [facility] [address] [employer] [facility]. [address] * POC TCO2 (10/26/2024 5:14 AM EDT) POC TCO2, Arterial 23 23 - 27 mmol/L 10/26/2024 5:[address] [facility] Blood, Arterial 10/26/2024 5 :14 AM EDT 10/26/2024 5:31 AM EDT Semaj Mcnair III, MD POINT OF CARE TEST ORDERABLES Final Result [facility] [address] * (ABNORMAL) POC O2 SAT (10/26/2024 5:14 AM EDT) POC O2 Saturation, Arterial 99(H) 95 - 98 % 10/26/2024 5:[address] [facility] Blood, Arterial 10/26/2024 5 :14 AM EDT 10/26/2024 5:31 AM EDT Semaj Mcnair III, MD POINT OF CARE TEST ORDERABLES Final Result Performing Organization Address [facility] Co de Phone Number [facility] [address] * (ABNORMAL) POC Base Excess (10/26/2024 5:14 AM EDT) POC Base Excess, Arterial -5(L) -2 - 3 mmol/L 10/26/2024 5:[address] [facility] Blood, Arterial 10/26/2024 5 :14 AM EDT 10/26/2024 5:31 AM EDT Semaj Mcnair III, MD POINT OF CARE TEST ORDERABLES Final Result [facility] [address] * POC HCO3 (10/26/2024 5:14 AM EDT) POC HCO3, Arterial 22 22 - 26 mmol/L 10/26/2024 5:[address] [facility] Blood, Arterial 10/26/2024 5 :14 AM EDT 10/26/2024 5:31 AM EDT Semaj Mcnair III, MD POINT OF CARE TEST ORDERABLES Final Result [facility] [address] * (ABNORMAL) POC PO2 (10/26/2024 5:14 AM EDT) POC pO2, Arterial 133(H) 80 - 100 mm Hg 10/26/2024 5:[address] [facility] Blood, Arterial 10/26/2024 5 :14 AM EDT 10/26/2024 5:31 AM EDT Semaj Mcnair III, MD POINT OF CARE TEST ORDERABLES Final Result Performing Organization Address City/[facility]/ZIP Co de Phone Number [facility] [address] [place] [employer] [facility]. [address] * POC PCO2 (10/26/2024 5:14 AM EDT) POC pCO2, Arterial 45 35 - 45 mm Hg 10/26/2024 5:[address] [facility] Blood, Arterial 10/26/2024 5 :14 AM EDT 10/26/2024 5:31 AM EDT Semaj Mcnair III, MD POINT OF CARE TEST ORDERABLES Final Result [facility] [address] [place] [employer] [facility]. [address] * (ABNORMAL) POC pH (10/26/2024 5:14 AM EDT) POC pH, Arterial 7.29(L) 7.35 - 7.45 10/26/2024 5:[address] [facility] Blood, Arterial 10/26/2024 5 :14 AM EDT 10/26/2024 5:31 AM EDT us Semaj Mcnair III, MD POINT OF CARE TEST ORDERABLES Final Result Performing Organization Address City/[facility] Co de Phone Number [facility] [address] * Transfuse Cryoprecipitate (10/26/2024 4:37 AM EDT) Eber Quinones MD NURSING TREATMENT ORDERA BLES - BLOOD ADMIN Final Result * Transfuse Cryoprecipitate (10/26/2024 4:37 AM EDT) Eber Quinones MD NURSING TREATMENT ORDERA BLES - BLOOD ADMIN Final Result * (ABNORMAL) POC INR (10/26/2024 4:27 AM EDT) Prothrombin Time INR, POC 2.3(H) 0.8 - 1.4 10/27/2024 6:[address] [facility] Comment: Test results may vary using [...] Result Performing Organization Address [facility] Co de Phone Number [facility] [address] [place] [employer] [facility]. [address] * POC Sample Type (10/26/2024 4:24 AM EDT) POC Sample Type Arterial 10/26/2024 5:[address] [facility] Blood, Arterial 10/26/2024 4 :24 AM EDT 10/26/2024 5:09 AM EDT Semaj Mcnair III, MD POINT OF CARE TEST ORDERABLES Final Result [facility] [address] * POC Anion Gap (10/26/2024 4:24 AM EDT) POC Anion Gap, Arterial 14 3 - 16 mmol/L 10/26/2024 5:[address] [facility] Blood, Arterial 10/26/2024 4 :24 AM EDT 10/26/2024 5:09 AM EDT us Semaj Mcnair III, MD POINT OF CARE TEST ORDERABLES Final Result [facility] [address] * POC Chloride (10/26/2024 4:24 AM EDT) POC Chloride 103 98 - 110 mmol/L 10/26/2024 5:[address] [facility] Blood, Arterial 10/26/2024 4 :24 AM EDT 10/26/2024 5:09 AM EDT us Semaj Mcnair III, MD POINT OF CARE TEST ORDERABLES Final Result [facility] [address] * (ABNORMAL) POC Hemoglobin (10/26/2024 4:24 AM EDT) POC Hemoglobin 10.3(L) 14.0 - 18.0 g/dL 10/26/2024 5:[address] [facility] Blood, Arterial 10/26/2024 4 :24 AM EDT 10/26/2024 5:09 AM EDT us Semaj Mcnair III, MD POINT OF CARE TEST ORDERABLES Final Result [facility] [address] * (ABNORMAL) POC hematocrit (10/26/2024 4:24 AM EDT) POC Hematocrit 30.0(L) 40 - 52 % 10/26/2024 5:[address] [facility] Blood, Arterial 10/26/2024 4 :24 AM EDT 10/26/2024 5:09 AM EDT us Semaj Mcnair III, MD POINT OF CARE TEST ORDERABLES Final Result [facility] [address] * (ABNORMAL) POC Lactate (10/26/2024 4:24 AM EDT) POC Lactate 2.43(H) 0.50 - 2.20 mmol/L 10/26/2024 5:[address] [facility] Blood, Arterial 10/26/2024 4 :24 AM EDT 10/26/2024 5:09 AM EDT us Semaj Mcnair III, MD POINT OF CARE TEST ORDERABLES Final Result Performing Organization Address [facility]/ZIP Co de Phone Number [facility] [address] * (ABNORMAL) POC Glucose (10/26/2024 4:24 AM EDT) POC Glucose, Arterial 185(H) 70 - 100 mg/dL 10/26/2024 5:[address] [facility] Blood, Arterial 10/26/2024 4 :24 AM EDT 10/26/2024 5:09 AM EDT us Semaj Mcnair III, MD POINT OF CARE TEST ORDERABLES Final Result [facility] [address] * POC Ionized Calcium (10/26/2024 4:24 AM EDT) POC Ionized Calcium 5.20 4.50 - 5.30 mg/dL 10/26/2024 5:[address] [facility] Blood, Arterial 10/26/2024 4 :24 AM EDT 10/26/2024 5:09 AM EDT us Semaj Mcnair III, MD POINT OF CARE TEST ORDERABLES Final Result [facility] [address] * (ABNORMAL) POC Potassium (10/26/2024 4:24 AM EDT) POC Potassium 2.8(LL) 3.5 - 5.3 mmol/L 10/26/2024 5:[address] [facility] Blood, Arterial 10/26/2024 4 :24 AM EDT 10/26/2024 5:09 AM EDT us Semaj Mcnair III, MD POINT OF CARE TEST ORDERABLES Final Result Performing Organization Address City/[facility]/ZIP Co de Phone Number [facility] [address] * POC Sodium (10/26/2024 4:24 AM EDT) POC Sodium 139 136 - 146 mmol/L 10/26/2024 5:[address] [facility] Blood, Arterial 10/26/2024 4 :24 AM EDT 10/26/2024 5:09 AM EDT us Semaj Mcnair III, MD POINT OF CARE TEST ORDERABLES Final Result [facility] [address] * POC TCO2 (10/26/2024 4:24 AM EDT) POC TCO2, Arterial 23 23 - 27 mmol/L 10/26/2024 5:[address] [facility] Blood, Arterial 10/26/2024 4 :24 AM EDT 10/26/2024 5:09 AM EDT us Semaj Mcnair III, MD POINT OF CARE TEST ORDERABLES Final Result [facility] [address] * POC O2 SAT (10/26/2024 4:24 AM EDT) [facility] POC O2 Saturation, Arterial 96 95 - 98 % 10/26/2024 5:[address] [facility] Blood, Arterial 10/26/2024 4 :24 AM EDT 10/26/2024 5:09 AM EDT us Semaj Mcnair III, MD POINT OF CARE TEST ORDERABLES Final Result Performing Organization Address City/[facility] Co de Phone Number [facility] [address] [facility]. [address] * (ABNORMAL) POC Base Excess (10/26/2024 4:24 AM EDT) [facility] POC Base Excess, Arterial -5(L) -2 - 3 mmol/L 10/26/2024 5:[address] [facility] Blood, Arterial 10/26/2024 4 :24 AM EDT 10/26/2024 5:09 AM EDT us Semaj Mcnair III, MD POINT OF CARE TEST ORDERABLES Final Result [facility] [address] [facility] * POC HCO3 (10/26/2024 4:24 AM EDT) POC HCO3, Arterial 22 22 - 26 mmol/L 10/26/2024 5:[address] [facility] Blood, Arterial 10/26/2024 4 :24 AM EDT 10/26/2024 5:09 AM EDT us Semaj Mcnair III, MD POINT OF CARE TEST ORDERABLES Final Result Performing Organization Address City/[facility]/ZIP Co de Phone Number [facility] [address] * POC PO2 (10/26/2024 4:24 AM EDT) POC pO2, Arterial 93 80 - 100 mm Hg 10/26/2024 5:[address] [facility] Blood, Arterial 10/26/2024 4 :24 AM EDT 10/26/2024 5:09 AM EDT us Semaj Mcnair III, MD POINT OF CARE TEST ORDERABLES Final Result Performing Organization Address [facility] de Phone Number [facility] [address] * POC PCO2 (10/26/2024 4:24 AM EDT) POC pCO2, Arterial 44 35 - 45 mm Hg 10/26/2024 5:[address] [facility] Blood, Arterial 10/26/2024 4 :24 AM EDT 10/26/2024 5:09 AM EDT us Semaj Mcnair III, MD POINT OF CARE TEST ORDERABLES Final Result Performing Organization Address City/[facility] Co de Phone Number [facility] [address] [place] [address]. [address] * (ABNORMAL) POC pH (10/26/2024 4:24 AM EDT) POC pH, Arterial 7.30(L) 7.35 - 7.45 10/26/2024 5:[address] [facility] Blood, Arterial 10/26/2024 4 :24 AM EDT 10/26/2024 5:09 AM EDT Semaj Mcnair III, MD POINT OF CARE TEST ORDERABLES Final Result Performing Organization Address City/[facility]/ZIP Co de Phone Number [facility] [address] [employer] [facility]. [address] * Transfuse Platelets (10/26/2024 4:14 AM [...] OF CARE TEST ORDERABLES Final Result [facility] [address] * POC Sample Type (10/26/2024 3:31 AM EDT) POC Sample Type Arterial 10/26/2024 4:[address] [facility] Blood, Arterial 10/26/2024 3 :31 AM EDT 10/26/2024 4:11 AM EDT us Semaj Mcnair III, MD POINT OF CARE TEST ORDERABLES Final Result Performing Organization Address City/[facility] Co de Phone Number [facility] [address] * POC Anion Gap (10/26/2024 3:31 AM EDT) POC Anion Gap, Arterial 15 3 - 16 mmol/L 10/26/2024 4:[address] [facility] Blood, Arterial 10/26/2024 3 :31 AM EDT 10/26/2024 4:11 AM EDT us Semaj Mcnair III, MD POINT OF CARE TEST ORDERABLES Final Result Performing Organization Address [facility] Co de Phone Number [facility] [address] * POC Chloride (10/26/2024 3:31 AM EDT) POC Chloride 105 98 - 110 mmol/L 10/26/2024 4:[address] [facility] Blood, Arterial 10/26/2024 3 :31 AM EDT 10/26/2024 4:11 AM EDT us Semaj Mcnair III, MD POINT OF CARE TEST ORDERABLES Final Result Performing Organization Address City/[facility] Co de Phone Number [facility] [address] * (ABNORMAL) POC Hemoglobin (10/26/2024 3:31 AM EDT) POC Hemoglobin 9.7(L) 14.0 - 18.0 g/dL 10/26/2024 4:[address] [facility] Blood, Arterial 10/26/2024 3 :31 AM EDT 10/26/2024 4:11 AM EDT us Semaj Mcnair III, MD POINT OF CARE TEST ORDERABLES Final Result Performing Organization Address City/[facility] Co de Phone Number [facility] [address] * (ABNORMAL) POC hematocrit (10/26/2024 3:31 AM EDT) POC Hematocrit 29.0(L) 40 - 52 % 10/26/2024 4:[address] [facility] Blood, Arterial 10/26/2024 3 :31 AM EDT 10/26/2024 4:11 AM EDT us Semaj Mcnair III, MD POINT OF CARE TEST ORDERABLES Final Result Performing Organization Address [facility] Co de Phone Number [facility] [address] * (ABNORMAL) POC Lactate (10/26/2024 3:31 AM EDT) POC Lactate 3.54(H) 0.50 - 2.20 mmol/L 10/26/2024 4:[address] [facility] Blood, Arterial 10/26/2024 3 :31 AM EDT 10/26/2024 4:11 AM EDT us Semaj Mcnair III, MD POINT OF CARE TEST ORDERABLES Final Result Performing Organization Address [facility] Co de Phone Number [facility] [address] * (ABNORMAL) POC Glucose (10/26/2024 3:31 AM EDT) POC Glucose, Arterial 153(H) 70 - 100 mg/dL 10/26/2024 4:[address] [facility] Blood, Arterial 10/26/2024 3 :31 AM EDT 10/26/2024 4:11 AM EDT us Semaj Mcnair III, MD POINT OF CARE TEST ORDERABLES Final Result Performing Organization Address City/[facility]/ZIP Co de Phone Number [facility] [address] * POC Ionized Calcium (10/26/2024 3:31 AM EDT) POC Ionized Calcium 5.10 4.50 - 5.30 mg/dL 10/26/2024 4:[address] [facility] Blood, Arterial 10/26/2024 3 :31 AM EDT 10/26/2024 4:11 AM EDT us Semaj Mcnair III, MD POINT OF CARE TEST ORDERABLES Final Result Performing Organization Address [facility] Co de Phone Number [facility] [address] [place] [address]. [address] * (ABNORMAL) POC Potassium (10/26/2024 3:31 AM EDT) POC Potassium 2.6(LL) 3.5 - 5.3 mmol/L 10/26/2024 4:[address] [facility] Blood, Arterial 10/26/2024 3 :31 AM EDT 10/26/2024 4:11 AM EDT us Semaj Mcnair III, MD POINT OF CARE TEST ORDERABLES Final Result [facility] [address] [employer] [facility]. [address] * POC Sodium (10/26/2024 3:31 AM EDT) POC Sodium 138 136 - 146 mmol/L 10/26/2024 4:[address] [facility] Blood, Arterial 10/26/2024 3 :31 AM EDT 10/26/2024 4:11 AM EDT us Semaj Mcnair III, MD POINT OF CARE TEST ORDERABLES Final Result [facility] [address] * (ABNORMAL) POC TCO2 (10/26/2024 3:31 AM EDT) POC TCO2, Arterial 19(L) 23 - 27 mmol/L 10/26/2024 4:[address] [facility] Blood, Arterial 10/26/2024 3 :31 AM EDT 10/26/2024 4:11 AM EDT us Semaj Mcnair III, MD POINT OF CARE TEST ORDERABLES Final Result Performing Organization Address City/[facility] Co de Phone Number [facility] [address] [employer] [facility]. [address] * POC O2 SAT (10/26/2024 3:31 AM EDT) POC O2 Saturation, Arterial 97 95 - 98 % 10/26/2024 4:[address] [facility] Blood, Arterial 10/26/2024 3 :31 AM EDT 10/26/2024 4:11 AM EDT us Semaj Mcnair III, MD POINT OF CARE TEST ORDERABLES Final Result Performing Organization Address City/[facility]/ZIP Co de Phone Number [facility] [address] [employer] [facility]. [address] * (ABNORMAL) POC Base Excess (10/26/2024 3:31 AM EDT) POC Base Excess, Arterial -9(L) -2 - 3 mmol/L 10/26/2024 4:[address] [facility] Blood, Arterial 10/26/2024 3 :31 AM EDT 10/26/2024 4:11 AM EDT us Semaj Mcnair III, MD POINT OF CARE TEST ORDERABLES Final Result [facility] [address] [employer] [facility]. [address] * (ABNORMAL) POC HCO3 (10/26/2024 3:31 AM EDT) POC HCO3, Arterial 18(L) 22 - 26 mmol/L 10/26/2024 4:[address] [facility] Blood, Arterial 10/26/2024 3 :31 AM EDT 10/26/2024 4:11 AM EDT us Semaj Mcnair III, MD POINT OF CARE TEST ORDERABLES Final Result Performing Organization Address [facility] Co de Phone Number [facility] [address] [employer] [facility]. [address] * (ABNORMAL) POC PO2 (10/26/2024 3:31 AM EDT) POC pO2, Arterial 104(H) 80 - 100 mm Hg 10/26/2024 4:[address] [facility] Blood, Arterial 10/26/2024 3 :31 AM EDT 10/26/2024 4:11 AM EDT us Semaj Mcnair III, MD POINT OF CARE TEST ORDERABLES Final Result Performing Organization Address City/[facility]/ZIP Co de Phone Number [facility] [address] [employer] [facility]. [address] * POC PCO2 (10/26/2024 3:31 AM EDT) POC pCO2, Arterial 42 35 - 45 mm Hg 10/26/2024 4:[address] [facility] Blood, Arterial 10/26/2024 3 :31 AM EDT 10/26/2024 4:11 AM EDT us Semaj Mcnair III, MD POINT OF CARE TEST ORDERABLES Final Result [facility] [address] * (ABNORMAL) POC pH (10/26/2024 3:31 AM EDT) [facility] POC pH, Arterial 7.24(L) 7.35 - 7.45 10/26/2024 4:[address] [facility] Blood, Arterial 10/26/2024 3 :31 AM EDT 10/26/2024 4:11 AM EDT us Semaj Mcnair III, MD POINT OF CARE TEST ORDERABLES Final Result Performing Organization Address [facility] Co de Phone Number [facility] [address] [employer] [facility]. [address] * (ABNORMAL) TEG-Global With Lysis (Baseline TEG with LY30, Will NOT Show Heparin Effect) (53:31 AM EDT) [facility] Citrated Kaolin Reaction Time (TEGLYSIS) 6.8 4.6 - 9.1 minutes 10/26/2024 5:[address] [facility] Citrated Rapid Teg Maximum Amplitude (TEGLYSIS) <40.0(L) 52.0 - 70.0 mm 10/26/2024 5:[address] [facility] Citrated Functional Fibrinogen Maximum Amplitude (TEGLYSIS) <4.0(L) 15.0 - 32.0 mm 10/26/2024 5:[address] [facility] Citrated Kaolin Percent Lysis (TEGLYSIS) 1.4 0.0 - 2.6 % 10/26/2024 5:[address] [facility] Whole Blood (Citrate) 10/26/2024 3:31 AM EDT 10/26/2024 3:40 AM EDT us Eber Quinones MD LAB BLOOD ORDERABLES Fin al Result Performing Organization Address City/[facility]/ZIP Co de Phone Number [facility] [address] * (ABNORMAL) CBC (10/26/2024 3:31 AM EDT) WBC 9.5 3.8 - 10.8 10E3/uL 10/26/2024 3:[address] [facility] RBC 3.68(L) 4.20 - 5.80 10E6/uL 10/26/2024 3:[address] [facility] Hemoglobin 11.5(L) 13.2 - 17.1 g/dL 10/26/2024 3:[address] [facility] Hematocrit 33.0(L) 38.5 - 50.0 % 10/26/2024 3:[address] [facility] MCV 89.6 80.0 - 100.0 fL 10/26/2024 3:[address] [facility] MCH 31.1 27.0 - 33.0 pg 10/26/2024 3:[address] [facility] MCHC 34.8 32.0 - 36.0 g/dL 10/26/2024 3:[address] [facility] RDW 19.3(H) 11.0 - 15.0 % 10/26/2024 3:[address] [facility] Platelets 67(L) 140 - 400 10E3/uL 10/26/2024 3:[address] [facility] MPV 7.9 7.5 - 11.5 fL 10/26/2024 3:[address] [facility] Whole Blood 10/26/2024 3:31 AM EDT 10/26/2024 3:40 AM EDT us Eber Quinones MD LAB BLOOD ORDERABLES Fin al Result [facility] [address] * (ABNORMAL) Protime-INR (10/26/2024 3:31 AM EDT) Protime 27.0(H) 12.1 - 15.1 seconds 10/26/2024 3:[address] [facility] INR 2.4(H) 0.9 - 1.1 10/26/2024 3:[address] [facility] Comment: RECOMMENDED THERAPEUTIC RANGES USING INR : Stable oral anticoagulant therapy: 2.0 - 3.0 Mechanical prosthetic heart valve: 2.5 - 3.5 Recurrent acute myocardial infarction: 2.5 - 3.5 Plasma 10/26/2024 3:31 AM EDT 10/26/2024 3:40 AM EDT Result [facility] Eber Quinones MD LAB BLOOD ORDERABLES Fin al Result Performing Organization Address [facility] Co de Phone Number [facility] [address] [facility]. [address] * (ABNORMAL) Fibrinogen (10/26/2024 3:31 AM EDT) [facility] Signature Fibrinogen 104(L) 218 - 406 mg/dL 10/26/2024 3:[address] [facility] Plasma 10/26/2024 3:31 AM EDT 10/26/2024 3:40 AM EDT Result [facility] Eber Quinones MD LAB BLOOD ORDERABLES Fin al Result Performing Organization Address [facility] de Phone Number [facility] [address] [facility] * Transfuse Fresh Frozen Plasma (10/26/2024 3:16 AM EDT) Result [facility] Ben Blake MD NURSING TREATMENT ORDERABLES - BLOOD ADMIN Final Result * Transfuse Fresh Frozen Plasma (10/26/2024 3:15 AM EDT) Result [facility] Ben Blake MD NURSING TREATMENT ORDERABLES - BLOOD ADMIN Final Result * Transfuse RBC (10/26/2024 3:14 AM EDT) Result [facility] Ben Blake MD NURSING TREATMENT ORDERABLES - BLOOD ADMIN Final Result * Transfuse RBC (10/26/2024 3:14 AM EDT) Result [facility] Ben Blake MD NURSING TREATMENT ORDERABLES - BLOOD ADMIN Final Result * Transfuse RBC (10/26/2024 2:40 AM EDT) Ben Blake MD NURSING TREATMENT ORDERABLES - BLOOD ADMIN Final Result * Transfuse Fresh Frozen Plasma (10/26/2024 2:39 AM EDT) Result Tiburcio Blake MD NURSING TREATMENT ORDERABLES - BLOOD ADMIN Final Result * Transfuse Fresh Frozen Plasma (10/26/2024 2:24 AM EDT) Result [facility] Ben Blake MD NURSING TREATMENT ORDERABLES - BLOOD ADMIN Final Result * Transfuse Fresh Frozen Plasma (10/26/2024 2:03 AM EDT) Result [facility] us Ben Blake MD NURSING TREATMENT ORDERABLES - BLOOD ADMIN Final Result * Transfuse RBC (10/26/2024 2:01 AM EDT) Result [facility] Bne Blake MD NURSING TREATMENT ORDERABLES - BLOOD ADMIN Final Result * Transfuse RBC (10/26/2024 1:45 AM EDT) Result [facility] Ben Blake MD NURSING TREATMENT ORDERABLES - BLOOD ADMIN Final Result * Transfuse RBC (10/26/2024 1:45 AM EDT) Result [facility] Ben Blake MD NURSING TREATMENT ORDERABLES - BLOOD ADMIN Final Result * (ABNORMAL) POC INR (10/26/2024 1:43 AM EDT) [facility] Prothrombin Time INR, POC 1.9(H) 0.8 [...] AM EDT 10/27/2024 6:51 AM EDT Result [facility] us Semaj Mcnair III, MD POINT OF CARE TEST ORDERABLES Final Result [facility] [address] [place], [place] [id number] [place] [address] * Transfuse Fresh Frozen Plasma (10/26/2024 1:41 AM EDT) us Ben Blake MD NURSING TREATMENT ORDERABLES - BLOOD ADMIN Final Result * Transfuse RBC (10/26/2024 1:40 AM EDT) us Ben Blake MD NURSING TREATMENT ORDERABLES - BLOOD ADMIN Final Result * POC Sample Type (10/26/2024 1:40 AM EDT) POC Sample Type Arterial 10/26/2024 2:[address] [facility] Blood, Arterial 10/26/2024 1 :40 AM EDT 10/26/2024 2:32 AM EDT Result [facility] us Semaj Mcnair III, MD POINT OF CARE TEST ORDERABLES Final Result Performing Organization Address [facility] Co de Phone Number [facility] [address] [place] [address]. [address] * POC Anion Gap (10/26/2024 1:40 AM EDT) Pathologist [facility] POC Anion Gap, Arterial 13 3 - 16 mmol/L 10/26/2024 2:[address] [facility] Blood, Arterial 10/26/2024 1 :40 AM EDT 10/26/2024 2:32 AM EDT Result [facility] us Semaj Mcnair III, MD POINT OF CARE TEST ORDERABLES Final Result Performing Organization Address City/[facility] Co de Phone Number [facility] [address] [place] [address]. [address] * POC Chloride (10/26/2024 1:40 AM EDT) Pathologist [facility] POC Chloride 104 98 - 110 mmol/L 10/26/2024 2:[address] [facility] Blood, Arterial 10/26/2024 1 :40 AM EDT 10/26/2024 2:32 AM EDT us Semaj Mcnair III, MD POINT OF CARE TEST ORDERABLES Final Result [facility] [address] [employer] [facility]. [address] * (ABNORMAL) POC Hemoglobin (10/26/2024 1:40 AM EDT) POC Hemoglobin 7.4(L) 14.0 - 18.0 g/dL 10/26/2024 2:[address] [facility] Blood, Arterial 10/26/2024 1 :40 AM EDT 10/26/2024 2:32 AM EDT us Semaj Mcnair III, MD POINT OF CARE TEST ORDERABLES Final Result Performing Organization Address [facility] Co de Phone Number [facility] [address] [place] [address]. [address] * (ABNORMAL) POC hematocrit (10/26/2024 1:40 AM EDT) POC Hematocrit 22.0(L) 40 - 52 % 10/26/2024 2:[address] [facility] Blood, Arterial 10/26/2024 1 :40 AM EDT 10/26/2024 2:32 AM EDT us Semaj Mcnair III, MD POINT OF CARE TEST ORDERABLES Final Result Performing Organization Address City/[facility] Co de Phone Number [facility] [address] [employer]. [address] * (ABNORMAL) POC Lactate (10/26/2024 1:40 AM EDT) POC Lactate 2.30(H) 0.50 - 2.20 mmol/L 10/26/2024 2:[address] [facility] Blood, Arterial 10/26/2024 1 :40 AM EDT 10/26/2024 2:32 AM EDT us Semaj Mcnair III, MD POINT OF CARE TEST ORDERABLES Final Result Performing Organization Address [facility]/ZIP Co de Phone Number [facility] [address] * (ABNORMAL) POC Glucose (10/26/2024 1:40 AM EDT) POC Glucose, Arterial 116(H) 70 - 100 mg/dL 10/26/2024 2:[address] [facility] Blood, Arterial 10/26/2024 1 :40 AM EDT 10/26/2024 2:32 AM EDT Semaj Mcnair III, MD POINT OF CARE TEST ORDERABLES Final Result Performing Organization Address [facility] Co de Phone Number [facility] [address] [place] [address] * (ABNORMAL) POC Ionized Calcium (10/26/2024 1:40 AM EDT) POC Ionized Calcium 4.10(L) 4.50 - 5.30 mg/dL 10/26/2024 2:[address] [facility] Blood, Arterial 10/26/2024 1 :40 AM EDT 10/26/2024 2:32 AM EDT Result [facility] Semaj Mcnair III, MD POINT OF CARE TEST ORDERABLES Final Result Performing Organization Address [facility] Healthcare/[facility] Co de Phone Number [facility] [address] * (ABNORMAL) POC Potassium (10/26/2024 1:40 AM EDT) POC Potassium 2.6(LL) 3.5 - 5.3 mmol/L 10/26/2024 2:[address] [facility] Blood, Arterial 10/26/2024 1 :40 AM EDT 10/26/2024 2:32 AM EDT us Semaj Mcnair III, MD POINT OF CARE TEST ORDERABLES Final Result [facility] [address] [employer] [facility] [address] * (ABNORMAL) POC Sodium (10/26/2024 1:40 AM EDT) POC Sodium 135(L) 136 - 146 mmol/L 10/26/2024 2:[address] [facility] Blood, Arterial 10/26/2024 1 :40 AM EDT 10/26/2024 2:32 AM EDT Semaj Mcnair III, MD POINT OF CARE TEST ORDERABLES Final Result Performing Organization Address [facility] Co de Phone Number [facility] [address] [employer] [facility] [address] * (ABNORMAL) POC TCO2 (10/26/2024 1:40 AM EDT) POC TCO2, Arterial 19(L) 23 - 27 mmol/L 10/26/2024 2:[address] [facility] Blood, Arterial 10/26/2024 1 :40 AM EDT 10/26/2024 2:32 AM EDT us Semaj Mcnair III, MD POINT OF CARE TEST ORDERABLES Final Result Performing Organization Address City/[facility]/ZIP Co de Phone Number [facility] [address] [employer] [facility]. [address] * (ABNORMAL) POC O2 SAT (10/26/2024 1:40 AM EDT) POC O2 Saturation, Arterial 99(H) 95 - 98 % 10/26/2024 2:[address] [facility] Blood, Arterial 10/26/2024 1 :40 AM EDT 10/26/2024 2:32 AM EDT us Semaj Mcnair III, MD POINT OF CARE TEST ORDERABLES Final Result Performing Organization Address [facility] Co de Phone Number [facility] [address] [employer] [facility]. [address] * (ABNORMAL) POC Base Excess (10/26/2024 1:40 AM EDT) POC Base Excess, Arterial -7(L) -2 - 3 mmol/L 10/26/2024 2:[address] [facility] Blood, Arterial 10/26/2024 1 :40 AM EDT 10/26/2024 2:32 AM EDT us Semaj Mcnair III, MD POINT OF CARE TEST ORDERABLES Final Result Performing Organization Address [facility] Co de Phone Number [facility] [address] [employer] [facility]. [address] * (ABNORMAL) POC HCO3 (10/26/2024 1:40 AM EDT) POC HCO3, Arterial 18(L) 22 - 26 mmol/L 10/26/2024 2:[address] [facility] Blood, Arterial 10/26/2024 1 :40 AM EDT 10/26/2024 2:32 AM EDT us Semaj Mcnair III, MD POINT OF CARE TEST ORDERABLES Final Result Performing Organization Address City/[facility] Co de Phone Number [facility] [address] [employer] [facility]. [address] * (ABNORMAL) POC PO2 (10/26/2024 1:40 AM EDT) POC pO2, Arterial 145(H) 80 - 100 mm Hg 10/26/2024 2:[address] [facility] Blood, Arterial 10/26/2024 1 :40 AM EDT 10/26/2024 2:32 AM EDT us Semaj Mcnair III, MD POINT OF CARE TEST ORDERABLES Final Result Performing Organization Address [facility] Co de Phone Number [facility] [address] [employer] [facility]. [address] * (ABNORMAL) POC PCO2 (10/26/2024 1:40 AM EDT) POC pCO2, Arterial 33(L) 35 - 45 mm Hg 10/26/2024 2:[address] [facility] Blood, Arterial 10/26/2024 1 :40 AM EDT 10/26/2024 2:32 AM EDT Semaj Mcnair III, MD POINT OF CARE TEST ORDERABLES Final Result Performing Organization Address [facility] Co de Phone Number [facility] [address] [employer] [facility]. [address] * POC pH (10/26/2024 1:40 AM EDT) Pathologist [facility] POC pH, Arterial 7.35 7.35 - 7.45 10/26/2024 2:[address] [facility] Blood, Arterial 10/26/2024 1 :40 AM EDT 10/26/2024 2:32 AM EDT Semaj Mcnair III, MD POINT OF CARE TEST ORDERABLES Final Result Performing Organization Address [facility] Co de Phone Number [facility] [address] [employer] [facility]. [address] * Transfuse Fresh Frozen Plasma (10/26/2024 1:20 AM EDT) us Ben Blake MD NURSING TREATMENT ORDERABLES - BLOOD ADMIN Final Result * Transfuse RBC (10/26/2024 12:56 AM EDT) us Ben Blake MD NURSING TREATMENT ORDERABLES - BLOOD ADMIN Final Result * (ABNORMAL) POC INR (10/26/2024 12:41 AM EDT) Prothrombin Time INR, POC 2.0(H) 0.8 - 1.4 10/27/2024 6:[address] [facility] Comment: Test results may vary using [...] OF CARE TEST ORDERABLES Final Result [facility] [address] [facility] [address] * POC Sample Type (10/26/2024 12:39 AM EDT) POC Sample Type Arterial 10/26/2024 1:[address] [facility] Blood, Arterial 10/26/2024 1 2:39 AM EDT 10/26/2024 1:38 AM EDT us Semaj Mcnair III, MD POINT OF CARE TEST ORDERABLES Final Result Performing Organization Address [facility] Co de Phone Number [facility] [address] * POC Anion Gap (10/26/2024 12:39 AM EDT) POC Anion Gap, Arterial 13 3 - 16 mmol/L 10/26/2024 1:[address] [facility] Blood, Arterial 10/26/2024 1 2:39 AM EDT 10/26/2024 1:38 AM EDT us Semaj Mcnair III, MD POINT OF CARE TEST ORDERABLES Final Result Performing Organization Address City/[facility] Co de Phone Number [facility] [address] * POC Chloride (10/26/2024 12:39 AM EDT) POC Chloride 103 98 - 110 mmol/L 10/26/2024 1:[address] [facility] Blood, Arterial 10/26/2024 1 2:39 AM EDT 10/26/2024 1:38 AM EDT us Semaj Mcnair III, MD POINT OF CARE TEST ORDERABLES Final Result Performing Organization Address City/[facility] Co de Phone Number [facility] [address] [facility]. [address] * (ABNORMAL) POC Hemoglobin (10/26/2024 12:39 AM EDT) Pathologist [facility] POC Hemoglobin 7.9(L) 14.0 - 18.0 g/dL 10/26/2024 1:[address] [facility] Blood, Arterial 10/26/2024 1 2:39 AM EDT 10/26/2024 1:38 AM EDT us Semaj Mcnair III, MD POINT OF CARE TEST ORDERABLES Final Result Performing Organization Address [facility] Co de Phone Number [facility] [address] [place] [address]. [address] * (ABNORMAL) POC hematocrit (10/26/2024 12:39 AM EDT) Pathologist [facility] POC Hematocrit 23.0(L) 40 - 52 % 10/26/2024 1:[address] [facility] Blood, Arterial 10/26/2024 1 2:39 AM EDT 10/26/2024 1:38 AM EDT us Semaj Mcnair III, MD POINT OF CARE TEST ORDERABLES Final Result Performing Organization Address City/[facility] Co de Phone Number [facility] [address] [place] [address]. [address] * POC Lactate (10/26/2024 12:39 AM EDT) POC Lactate 1.39 0.50 - 2.20 mmol/L 10/26/2024 1:[address] [facility] Blood, Arterial 10/26/2024 1 2:39 AM EDT 10/26/2024 1:38 AM EDT us Semaj Mcnair III, MD POINT OF CARE TEST ORDERABLES Final Result Performing Organization Address City/[facility] Co de Phone Number [facility] [address] [place] [address]. [address] * (ABNORMAL) POC Glucose (10/26/2024 12:39 AM EDT) Pathologist [facility] POC Glucose, Arterial 116(H) 70 - 100 mg/dL 10/26/2024 1:[address] [facility] Blood, Arterial 10/26/2024 1 2:39 AM EDT 10/26/2024 1:38 AM EDT us Semaj Mcnair III, MD POINT OF CARE TEST ORDERABLES Final Result Performing Organization Address [facility] de Phone Number [address] * (ABNORMAL) POC Ionized Calcium (10/26/2024 12:39 AM EDT) Pathologist [facility] POC Ionized Calcium 4.30(L) 4.50 - 5.30 mg/dL 10/26/2024 1:[address] [facility] Blood, Arterial 10/26/2024 1 2:39 AM EDT 10/26/2024 1:38 AM EDT us Semaj Mcnair III, MD POINT OF CARE TEST ORDERABLES Final Result Performing Organization Address [facility] Co de Phone Number [facility] [address] [place] [address]. [address] * (ABNORMAL) POC Potassium (10/26/2024 12:39 AM EDT) POC Potassium 2.4(LL) 3.5 - 5.3 mmol/L 10/26/2024 1:[address] [facility] Blood, Arterial 10/26/2024 1 2:39 AM EDT 10/26/2024 1:38 AM EDT Semaj Mcnair III, MD POINT OF CARE TEST ORDERABLES Final Result Performing Organization Address City/[facility] Co de Phone Number [facility] [address] [facility]. [address] * POC Sodium (10/26/2024 12:39 AM EDT) POC Sodium 136 136 - 146 mmol/L 10/26/2024 1:[address] [facility] Blood, Arterial 10/26/2024 1 2:39 AM EDT 10/26/2024 1:38 AM EDT Semaj Mcnair III, MD POINT OF CARE TEST ORDERABLES Final Result Performing Organization Address [facility] Co de Phone Number [facility] [address] [place] [address]. [address] * (ABNORMAL) POC TCO2 (10/26/2024 12:39 AM EDT) POC TCO2, Arterial 21(L) 23 - 27 mmol/L 10/26/2024 1:[address] [facility] Blood, Arterial 10/26/2024 1 2:39 AM EDT 10/26/2024 1:38 AM EDT us Semaj Mcnair III, MD POINT OF CARE TEST ORDERABLES Final Result Performing Organization Address [facility] Co de Phone Number [facility] [address] [facility]. [address] * POC O2 SAT (10/26/2024 12:39 AM EDT) POC O2 Saturation, Arterial 98 95 - 98 % 10/26/2024 1:[address] [facility] Blood, Arterial 10/26/2024 1 2:39 AM EDT 10/26/2024 1:38 AM EDT us Semaj Mcnair III, MD POINT OF CARE TEST ORDERABLES Final Result Performing Organization Address City/[facility] Co de Phone Number [facility] [address] [place] [address]. [address] * (ABNORMAL) POC Base Excess (10/26/2024 12:39 AM EDT) POC Base Excess, Arterial -7(L) -2 - 3 mmol/L 10/26/2024 1:[address] [facility] Blood, Arterial 10/26/2024 1 2:39 AM EDT 10/26/2024 1:38 AM EDT us Semaj Mcnair III, MD POINT OF CARE TEST ORDERABLES Final Result Performing Organization Address [facility] Co de Phone Number [facility] [address] [place] [address]. [address] * (ABNORMAL) POC HCO3 (10/26/2024 12:39 AM EDT) POC HCO3, Arterial 20(L) 22 - 26 mmol/L 10/26/2024 1:[address] [facility] Blood, Arterial 10/26/2024 1 2:39 AM EDT 10/26/2024 1:38 AM EDT us Semaj Mcnair III, MD POINT OF CARE TEST ORDERABLES Final Result Performing Organization Address [facility] Co de Phone Number [facility] [address] * (ABNORMAL) POC PO2 (10/26/2024 12:39 AM EDT) POC pO2, Arterial 117(H) 80 - 100 mm Hg 10/26/2024 1:[address] [facility] Blood, Arterial 10/26/2024 1 2:39 AM EDT 10/26/2024 1:38 AM EDT Semaj Mcnair III, MD POINT OF CARE TEST ORDERABLES Final Result Performing Organization Address City/[facility] Co de Phone Number [facility] [address] * (ABNORMAL) POC PCO2 (10/26/2024 12:39 AM EDT) POC pCO2, Arterial 46(H) 35 - 45 mm Hg 10/26/2024 1:[address] [facility] Blood, Arterial 10/26/2024 1 2:39 AM EDT 10/26/2024 1:38 AM EDT Semaj Mcnair III, MD POINT OF CARE TEST ORDERABLES Final Result Performing Organization Address [facility] Co de Phone Number [facility] [address] [employer] [facility]. [address] * (ABNORMAL) POC pH (10/26/2024 12:39 AM EDT) POC pH, Arterial 7.24(L) 7.35 - 7.45 10/26/2024 1:[address] [facility] Blood, Arterial 10/26/2024 1 2:39 AM EDT 10/26/2024 1:38 AM EDT Semaj Mcnair III, MD POINT OF CARE TEST ORDERABLES Final Result Performing Organization Address [facility] Co de Phone Number [facility] [address] [place] [address] [employer] [facility]. [address] * Transfuse Platelets (10/26/2024 12:37 AM [...] AM EDT) Gram Stain Result Cytospin Results: [facility] Gram Stain Result Polymorphonuclear Leukocytes Seen; [facility] Gram Stain Result No Organisms Seen; [facility] Culture Result No Growth After [address] [facility] Surgical Swab ABDOMEN / Unknown 12:03 AM EDT Comment:2.) Ascites Anaerobhic culture Fungus culture Routine culture plus stain Narrative [facility] - 10/28/2024 9:38 PM EDT 2.) Ascites Anaerobhic culture Fungus culture Routine culture plus stain 2.) Ascites Semaj Mcnair III, MD MICROBIOLOGY - [facility] ORDERABLES Final Result [facility] [address] [place] [address], [facility] * Surgical Pathology Exam (10/26/2024 12:00 AM EDT) 10/26/2024 10/27/2024 Narrative [facility] - 10/26/2024 12:00 AM EDT CASE: [id number] PATIENT: BLAIR GILBERT Clinical History: Liver - kidney transplant Pre-Operative Diagnosis: Alcoholic cirrhosis of liver Post-Operative Diagnosis: Alcoholic cirrhosis of liver Specimen(s) Submitted: A. shinnecock liver CPT Code(s): 54830 X 1; 16575 X 5 Additional Information: FINAL DIAGNOSIS: A. 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 - Negative for neoplasm. - Increased hepatocellular iron deposition (3+; Modified Scheuer). Gall bladder: -Intramucosal and submucosal vascular congestion and hemorrhage. - Negative for dysplasia or malignancy. Gross Description: Received in formalin, labeled Blair Gilbert and shinnecock liver , is a 2338-gram, hepatectomy specimen [...] discrete masses or other lesions are identified. Psychiatry Physician sections are submitted in cassettes [id number] as follows: A1: Hilar margins, en face. [...] Pathologist signing this report is located at [facility], [address] [place] [address], [place], [place], [facility], , CLIA ID: [id number] us Semaj Mcnair III, MD PATHOLOGY/CYTOLOGY ORDERABLES Final Result Performing Organization Address [facility]/State/ZIP Co de Phone Number [facility] * [...] 0.8 - 1.4 10/27/2024 6:[address] [facility] Comment: Test results may vary using [...] Result Performing Organization Address [facility]/ZIP Co de Phone Number [facility] [address] [place] [address] * POC Sample Type (10/25/2024 11:40 PM EDT) Pathologist [facility] POC Sample Type Arterial 10/25/2024 11:[address] [facility] Blood, Arterial 10/25/2024 1 1:40 PM EDT 10/25/2024 11:57 PM EDT Semaj Mcnair III, MD POINT OF CARE TEST ORDERABLES Final Result [facility] [address] [facility]. [address] * POC Anion Gap (10/25/2024 11:40 PM EDT) [facility] POC Anion Gap, Arterial 13 3 - 16 mmol/L 10/25/2024 11:[address] [facility] Blood, Arterial 10/25/2024 1 1:40 PM EDT 10/25/2024 11:57 PM EDT Semaj Mcnair III, MD POINT OF CARE TEST ORDERABLES Final Result Performing Organization Address City/[facility] Co de Phone Number [facility] [address] [place] [address]. [address] * POC Chloride (10/25/2024 11:40 PM EDT) [facility] POC Chloride 102 98 - 110 mmol/L 10/25/2024 11:[address] [facility] Blood, Arterial 10/25/2024 1 1:40 PM EDT 10/25/2024 11:57 PM EDT us Semaj Mcnair III, MD POINT OF CARE TEST ORDERABLES Final Result Performing Organization Address City/[facility] Co de Phone Number [facility] [address] [facility]. [address] * (ABNORMAL) POC Hemoglobin (10/25/2024 11:40 PM EDT) Pathologist [facility] POC Hemoglobin 6.6(L) 14.0 - 18.0 g/dL 10/25/2024 11:[address] [facility] Blood, Arterial 10/25/2024 1 1:40 PM EDT 10/25/2024 11:57 PM EDT us Semaj Mcnair III, MD POINT OF CARE TEST ORDERABLES Final Result Performing Organization Address City/[facility]/ZIP Co de Phone Number [facility] [address] [employer] [facility]. [address] * (ABNORMAL) POC hematocrit (10/25/2024 11:40 PM EDT) POC Hematocrit 19.0(L) 40 - 52 % 10/25/2024 11:[address] [facility] Blood, Arterial 10/25/2024 1 1:40 PM EDT 10/25/2024 11:57 PM EDT us Semaj Mcnair III, MD POINT OF CARE TEST ORDERABLES Final Result Performing Organization Address [facility] Co de Phone Number [facility] [address] [employer] [facility] [employer] [facility]. [address] * POC Lactate (10/25/2024 11:40 PM EDT) POC Lactate 1.36 0.50 - 2.20 mmol/L 10/25/2024 11:[address] [facility] Blood, Arterial 10/25/2024 1 1:40 PM EDT 10/25/2024 11:57 PM EDT us Semaj Mcnair III, MD POINT OF CARE TEST ORDERABLES Final Result Performing Organization Address City/[facility] Co de Phone Number [facility] [address] [employer] [facility] [employer] [facility]. [address] * (ABNORMAL) POC Glucose (10/25/2024 11:40 PM EDT) POC Glucose, Arterial 101(H) 70 - 100 mg/dL 10/25/2024 11:[address] [facility] Blood, Arterial 10/25/2024 1 1:40 PM EDT 10/25/2024 11:57 PM EDT us Semaj Mcnair III, MD POINT OF CARE TEST ORDERABLES Final Result [facility] [address] [place] [address]. [address] * POC Ionized Calcium (10/25/2024 11:40 PM EDT) POC Ionized Calcium 4.50 4.50 - 5.30 mg/dL 10/25/2024 11:[address] [facility] Blood, Arterial 10/25/2024 1 1:40 PM EDT 10/25/2024 11:57 PM EDT Semaj Mcnair III, MD POINT OF CARE TEST ORDERABLES Final Result Performing Organization Address [facility] Co de Phone Number [facility] [address] [place] [address]. [address] * (ABNORMAL) POC Potassium (10/25/2024 11:40 PM EDT) Pathologist [facility] POC Potassium 1.9(LL) 3.5 - 5.3 mmol/L 10/25/2024 11:[address] [facility] Blood, Arterial 10/25/2024 1 1:40 PM EDT 10/25/2024 11:57 PM EDT us Semaj Mcnair III, MD POINT OF CARE TEST ORDERABLES Final Result Performing Organization Address City/[facility]/ZIP Co de Phone Number [facility] [address] [place] [address]. [address] * (ABNORMAL) POC Sodium (10/25/2024 11:40 PM EDT) POC Sodium 135(L) 136 - 146 mmol/L 10/25/2024 11:[address] [facility] Blood, Arterial 10/25/2024 1 1:40 PM EDT 10/25/2024 11:57 PM EDT us Semaj Mcnair III, MD POINT OF CARE TEST ORDERABLES Final Result [facility] [address] * (ABNORMAL) POC TCO2 (10/25/2024 11:40 PM EDT) POC TCO2, Arterial 21(L) 23 - 27 mmol/L 10/25/2024 11:[address] [facility] Blood, Arterial 10/25/2024 1 1:40 PM EDT 10/25/2024 11:57 PM EDT us Semaj Mcnair III, MD POINT OF CARE TEST ORDERABLES Final Result Performing Organization Address [facility]/ZIP Co de Phone Number [facility] [address] [employer] [facility]. [address] * POC O2 SAT (10/25/2024 11:40 PM EDT) POC O2 Saturation, Arterial 98 95 - 98 % 10/25/2024 11:[address] [facility] Blood, Arterial 10/25/2024 1 1:40 PM EDT 10/25/2024 11:57 PM EDT Semaj Mcnair III, MD POINT OF CARE TEST ORDERABLES Final Result Performing Organization Address City/[facility]/ZIP Co de Phone Number [facility] [address] [employer]. [address] * (ABNORMAL) POC Base Excess (10/25/2024 11:40 PM EDT) POC Base Excess, Arterial -6(L) -2 - 3 mmol/L 10/25/2024 11:[address] [facility] Blood, Arterial 10/25/2024 1 1:40 PM EDT 10/25/2024 11:57 PM EDT us Semaj Mcnair III, MD POINT OF CARE TEST ORDERABLES Final Result [facility] [address] [employer]. [address] * (ABNORMAL) POC HCO3 (10/25/2024 11:40 PM EDT) POC HCO3, Arterial 20(L) 22 - 26 mmol/L 10/25/2024 11:[address] [facility] Blood, Arterial 10/25/2024 1 1:40 PM EDT 10/25/2024 11:57 PM EDT us Semaj Mcnair III, MD POINT OF CARE TEST ORDERABLES Final Result Performing Organization Address [facility] Co de Phone Number [facility] [address] [employer] [facility]. [address] * (ABNORMAL) POC PO2 (10/25/2024 11:40 PM EDT) POC pO2, Arterial 107(H) 80 - 100 mm Hg 10/25/2024 11:[address] [facility] Blood, Arterial 10/25/2024 1 1:40 PM EDT 10/25/2024 11:57 PM EDT us Semaj Mcnair III, MD POINT OF CARE TEST ORDERABLES Final Result Performing Organization Address City/[facility]/ZIP Co de Phone Number [facility] [address] [employer] [facility]. [address] * POC PCO2 (10/25/2024 11:40 PM EDT) POC pCO2, Arterial 41 35 - 45 mm Hg 10/25/2024 11:[address] [facility] Blood, Arterial 10/25/2024 1 1:40 PM EDT 10/25/2024 11:57 PM EDT us Semaj Mcnair III, MD POINT OF CARE TEST ORDERABLES Final Result Performing Organization Address [facility] Co de Phone Number [facility] [address] * (ABNORMAL) POC pH (10/25/2024 11:40 PM EDT) POC pH, Arterial 7.29(L) 7.35 - 7.45 10/25/2024 11:[address] [facility] Blood, Arterial 10/25/2024 1 1:40 PM EDT 10/25/2024 11:57 PM EDT us Semaj Mcnair III, MD POINT OF CARE TEST ORDERABLES Final Result Performing Organization Address [facility] Co de Phone Number [facility] [address] * Urine culture (10/25/2024 11:08 PM EDT) Culture Result <1,000 cfu/mL [facility] Culture Result Skin/Urogeni rony Mckayla. No Further Workup. [facility] Newly Placed Berkowitz Urine URINE SPECIMEN / Unknown 10/25/2024 11:08 PM EDT Comment:urine culture Narrative [facility] - 10/28/2024 9:59 AM EDT urine culture urine culture us Semaj Mcnair III, MD MICROBIOLOGY - GENE RAL ORDERABLES Final Result Performing Organization Address [facility] Co de Phone Number [facility] [address] * X-ray Portable Chest (10/25/2024 10:19 [...] - 2.2 mmol/L 10/25/2024 10:[address] [facility] Plasma 10/25/2024 10:1 7 PM EDT 10/25/2024 10:17 PM EDT Ben Blake MD LAB BLOOD ORDERABLES Final Re sult [facility] [address] [facility]. [address] * (ABNORMAL) Ferritin (10/25/2024 10:17 PM EDT) Ferritin 623.2(H) 23.9 - 336.2 ng/mL 10/25/2024 11:[address] [facility] Serum 10/25/2024 10:1 7 PM EDT 10/25/2024 10:17 PM EDT Result [facility] Leandra Og MD LAB BLOOD ORDERABLES F inal Result Performing Organization Address [facility]/ZIP Co de Phone Number [facility] [address] [facility]. [address] * Iron Studies (Iron + TIBC) (10/25/2024 10:17 PM EDT) Iron 128 50 - 212 ug/dL 10/25/2024 10:[address] [facility] % Iron Saturation SEE COMMENT 15.0 - 55.0 % 10/25/2024 10:[address] [facility] Comment:Unable to calculate result because contributing result outside reportable range.. TIBC SEE COMMENT 261 - 462 ug/dL 10/25/2024 10:[address] [facility] Comment:Unable to calculate result because contributing result outside reportable range.. Serum 10/25/2024 10:1 7 PM EDT 10/25/2024 10:17 PM EDT Leandra Og MD LAB BLOOD ORDERABLES F inal Result [facility] [address] * PTH (10/25/2024 10:17 PM EDT) PTH 36.0 12.0 - 88.0 pg/mL 10/25/2024 11:[address] [facility] Serum 10/25/2024 10:1 7 PM EDT 10/25/2024 10:17 PM EDT Leandra Og MD LAB BLOOD ORDERABLES F inal Result [facility] [address] * HIV 1+2 Antibody/Antigen with Reflex (10/25/2024 10:17 PM EDT) HIV 1+2 AB/AGN Nonreactive Nonreactive 10/25/2024 11:[address] [facility] Serum 10/25/2024 10:1 7 PM EDT 10/25/2024 10:[address] [facility] - 10/25/2024 11:03 PM EDT \HIVRNR Leandra Og MD LAB BLOOD ORDERABLES F inal Result [facility] [address] * Hepatitis B Core Antibody (10/25/2024 10:17 PM EDT) Hep B Core Total Ab Nonreactive Nonreactive 10/25/2024 11:[address] [facility] Comment:Health Department no tified in accordance with reportable infectious disease guidelines. Serum 10/25/2024 10:1 7 PM EDT 10/25/2024 10:[address] [facility] - 10/25/2024 11:07 PM EDT A nonreactive final interpretation indicates that anti-HBc antibodies were not detected in the sample; it is possible that the individual is not infected with HBV. us Leandra Og MD LAB BLOOD ORDERABLES F inal Result Performing Organization Address [facility] Co de Phone Number [facility] [address] [facility]. [address] * Hepatitis C Antibody (10/25/2024 10:17 PM EDT) Pathologist [facility] HCV Ab Nonreactive Nonreactive 10/25/2024 11:[address] [facility] Comment:Health Department no tified in accordance with reportable infectious disease guidelines. Serum 10/25/2024 10:1 7 PM EDT 10/25/2024 10:[address] [facility] - 10/25/2024 11:16 PM EDT Antibodies to HCV not detected; does not exclude the possibility of exposure to HCV. us Leandra Og MD LAB BLOOD ORDERABLES F inal Result Performing Organization Address [facility] Co de Phone Number [facility] [address] [facility]. [address] * (ABNORMAL) Hepatitis B Surface Antibody, Quantitati (10/25/2024 10:17 PM EDT) [facility] HBSAB NUMBER 10.70(H) 0.00 - 9.99 mIU/mL 10/25/2024 11:[address] [facility] Hep B S Ab Equivocal (A) Nonreactive 10/25/2024 11:[address] [facility] Serum 10/25/2024 10:1 7 PM EDT 10/25/2024 10:17 PM EDT us Leandra Og MD LAB BLOOD ORDERABLES F inal Result Performing Organization Address [facility] Co de Phone Number [facility] [address] [facility]. [address] * Hepatitis B surface antigen (10/25/2024 10:17 PM EDT) Hep B Surface Ag Nonreactive Nonreactive 10/25/2024 11:[address] [facility] Comment:Health Department no tified in accordance with reportable infectious disease guidelines. Serum 10/25/2024 10:1 7 PM EDT 10/25/2024 10:17 PM EDT Narrative [facility] - 10/25/2024 11:12 PM EDT Specimen is considered negative for HBsAg. Leandra Og MD LAB BLOOD ORDERABLES F inal Result Performing Organization Address City/[facility]/ZIP Co de Phone Number [facility] [address] [facility]. [address] * Hepatitis A Antibody Total (10/25/2024 10:17 PM EDT) Anti-HAV Total (IgG + IgM) Nonreactive 10/25/2024 11:[address] [facility] Serum 10/25/2024 10:1 7 PM EDT 10/25/2024 10:[address] [facility] - 10/25/2024 11:13 PM EDT HAV antibodies not detected Leandra Og MD LAB BLOOD ORDERABLES F inal Result Performing Organization Address City/[facility] Co de Phone Number [facility] [address] [facility]. [address] * (ABNORMAL) Hepatic Function Panel (10/25/2024 10:17 PM EDT) Total Bilirubin 9.1(H) 0.0 - 1.5 mg/dL 10/25/2024 10:[address] [facility] Bilirubin, Direct 4.58(H) 0.00 - 0.40 mg/dL 10/25/2024 10:[address] [facility] AST 51(H) 13 - 39 U/L 10/25/2024 10:[address] [facility] ALT 23 7 - 52 U/L 10/25/2024 10:[address] [facility] Alkaline Phosphatase 144(H) 36 - 125 U/L 10/25/2024 10:[address] [facility] Total Protein 5.5(L) 6.4 - 8.9 g/dL 10/25/2024 10:[address] [facility] Albumin 3.5 3.5 - 5.7 g/dL 10/25/2024 10:[address] [facility] Bilirubin, Indirect 4.52(H) 0.00 - 1.10 mg/dL 10/25/2024 10:[address] [facility] Plasma 10/25/2024 10:1 7 PM EDT 10/25/2024 10:17 PM EDT us Leandra Og MD LAB BLOOD ORDERABLES F inal Result [facility] [address] [place] [address], [facility] * (ABNORMAL) Renal Function Panel w/EGFR (10/25/2024 10:17 PM EDT) Sodium 137 133 - 146 mmol/L 10/25/2024 10:[address] [facility] Potassium 2.1(LL) 3.5 - 5.3 mmol/L 10/25/2024 10:[address] [facility] Comment:Critical Result K:2. 1 Called to and read back by: ALICIA CARCAMO RN at: 10/25/2024 22:47:45 by:NANCY Chloride 100 98 - 110 mmol/L 10/25/2024 10:[address] [facility] CO2 20(L) 21 - 33 mmol/L 10/25/2024 10:[address] [facility] Anion Gap 17(H) 3 - 16 mmol/L 10/25/2024 10:[address] [facility] BUN 74(H) 7 - 25 mg/dL 10/25/2024 10:[address] [facility] Creatinine 3.87(H) 0.60 - 1.30 mg/dL 10/25/2024 10:[address] [facility] Glucose 114(H) 70 - 100 mg/dL 10/25/2024 10:[address] [facility] Calcium 9.3 8.6 - 10.3 mg/dL 10/25/2024 10:[address] [facility] Phosphorus 5.9(H) 2.1 - 4.7 mg/dL 10/25/2024 10:[address] [facility] Albumin 3.5 3.5 - 5.7 g/dL 10/25/2024 10:[address] [facility] Osmolality, Calculated 307(H) 278 - 305 mOsm/kg 10/25/2024 10:[address] [facility] EGFR 19 10/25/2024 10:[address] [facility] Comment:As of 2021, the estimated [...] MD LAB BLOOD ORDERABLES F inal Result [facility] [address] [facility] [place] [address], [facility] * (ABNORMAL) APTT, NO ANTICOAGULANT (10/25/2024 10:17 PM EDT) aPTT 41.7(H) 25.5 - 35.0 seconds 10/25/2024 10:[address] [facility] Plasma 10/25/2024 10:1 7 PM EDT 10/25/2024 10:17 PM EDT us Leandra Og MD LAB BLOOD ORDERABLES F inal Result Performing Organization Address City/[facility]/ZIP Co de Phone Number [facility] [address] * (ABNORMAL) Protime-INR (10/25/2024 10:17 PM EDT) Protime 21.7(H) 12.1 - 15.1 seconds 10/25/2024 10:[address] [facility] INR 1.8(H) 0.9 - 1.1 10/25/2024 10:[address] [facility] Comment: RECOMMENDED THERAPEUTIC RANGES USING INR : Stable oral anticoagulant therapy: 2.0 - 3.0 Mechanical prosthetic heart valve: 2.5 - 3.5 Recurrent acute myocardial infarction: 2.5 - 3.5 Plasma 10/25/2024 10:1 7 PM EDT 10/25/2024 10:17 PM EDT us Leandra Og MD LAB BLOOD ORDERABLES F inal Result Performing Organization Address [facility] Co de Phone Number [facility] [address] [employer] [facility]. [address] * (ABNORMAL) Differential (10/25/2024 10:17 PM EDT) Differential Comments See Note 10/25/2024 10:[address] [facility] Comment: _Platelets Appear Decreased _Platelet Morphology Normal Scan Result PERFORMED 10/25/2024 10:[address] [facility] Neutrophils Relative 79.8 40.0 - 80.0 % 10/25/2024 10:[address] [facility] Lymphocytes Relative 9.6(L) 15.0 - 45.0 % 10/25/2024 10:[address] [facility] Monocytes Relative 8.9 0.0 - 12.0 % 10/25/2024 10:[address] [facility] Eosinophils Relative 1.3 0.0 - 8.0 % 10/25/2024 10:[address] [facility] Basophils Relative 0.4 0.0 - 1.0 % 10/25/2024 10:[address] [facility] nRBC 0 0 - 0 /100 WBC 10/25/2024 10:[address] [facility] Neutrophils Absolute 4,948 1,520 - 8,640 /uL 10/25/2024 10:[address] [facility] Lymphocytes Absolute 595 570 - 4,860 /uL 10/25/2024 10:[address] [facility] Monocytes Absolute 552 0 - 1,296 /uL 10/25/2024 10:[address] [facility] Eosinophils Absolute 81 0 - 864 /uL 10/25/2024 10:[address] [facility] Basophils Absolute 25 0 - 108 /uL 10/25/2024 10:[address] [facility] PLT Morphology Platelet morphology appears normal 10/25/2024 10:[address] [facility] Whole Blood 10/25/2024 10:1 7 PM EDT 10/25/2024 10:17 PM EDT us Leandra Og MD LAB BLOOD ORDERABLES F inal Result [facility] [address] [id number], [facility] * (ABNORMAL) CBC (10/25/2024 10:17 PM EDT) WBC 6.2 3.8 - 10.8 10E3/uL 10/25/2024 10:[address] [facility] RBC 2.40(L) 4.20 - 5.80 10E6/uL 10/25/2024 10:[address] [facility] Hemoglobin 8.3(L) 13.2 - 17.1 g/dL 10/25/2024 10:[address] [facility] Hematocrit 23.7(L) 38.5 - 50.0 % 10/25/2024 10:[address] [facility] MCV 98.9 80.0 - 100.0 fL 10/25/2024 10:[address] [facility] MCH 34.6(H) 27.0 - 33.0 pg 10/25/2024 10:[address] [facility] MCHC 35.0 32.0 - 36.0 g/dL 10/25/2024 10:[address] [facility] RDW 17.8(H) 11.0 - 15.0 % 10/25/2024 10:[address] [facility] Platelets 56(L) 140 - 400 10E3/uL 10/25/2024 10:[address] [facility] Comment: Specimen checked for clots. None detected. Slide Reviewed for PLT Clumps. None Seen. Platelet Estimate Decreased 10/25/2024 10:[address] [facility] MPV 8.1 7.5 - 11.5 fL 10/25/2024 10:[address] [facility] Whole Blood 10/25/2024 10:1 7 PM EDT 10/25/2024 10:[address] [facility] - 10/25/2024 10:54 PM EDT Peripheral blood smear was scanned per review criteria approved by the laboratory medical assistant dermatology. us Leandra Og MD LAB BLOOD ORDERABLES F inal Result [facility] [address] [place] [address], [facility] * Donor Specific Antibody (DSA) (10/25/2024 10:00 PM EDT) AntiDonor Antibodies The request and specimen(s) for this test have been received and transported to the [facility] at [address] [place] [address]. The [facility] will report results directly to the client. 10/25/2024 10:[address] [facility] Comment:Testing performed by [facility], [address] [place] [address]. [address] [facility] report has been forwarded to the appropriate ordering location. Please refer to this report for patient results. Serum 10/25/2024 10:0 0 PM EDT 10/25/2024 10:20 PM EDT Leandra Og MD LAB BLOOD ORDERABLES F inal Result [facility] [address] [place] [address], [facility] * (ABNORMAL) Venous Blood Gas, Line/Syringe (10/25/2024 10:00 PM EDT) PH-Line Draw 7.38 7.32 - 7.42 10/25/2024 10:[address] [facility] PCO2-Line Draw 33(L) 41 - 51 mm Hg 10/25/2024 10:[address] [facility] PO2-Line Draw 33 25 - 40 mm Hg 10/25/2024 10:[address] [facility] HCO3-Line Draw 20(L) 24 - 28 mmol/L 10/25/2024 10:[address] [facility] CO2 Content-Line Draw 21(L) 25 - 29 mmol/L 10/25/2024 10:[address] [facility] Base Excess-Line Draw -5.0(L) -2.0 - 3.0 mmol/L 10/25/2024 10:[address] [facility] %HBO2-Line Draw 53.8 40.0 - 70.0 % 10/25/2024 10:[address] [facility] Carboxyhgb-Ludivina e Draw 1.9 % 10/25/2024 10:[address] [facility] Comment: CARBOXYHEMOGLOBIN (CO) REFERENCE RANGES: Non-Smokers: <2 % Smokers: <8 % TOXIC: >20 % Methemoglobin- Line Draw 0.2 0.0 - 1.5 % 10/25/2024 10:[address] [facility] Reduced Hemoglobin-Ludivina e Draw 44.1(H) 0.0 - 5.0 % 10/25/2024 10:[address] [facility] Venous, Line Draw 10/25/2024 10:00 PM EDT 10/25/2024 10:04 PM EDT Leandra Og MD LAB BLOOD ORDERABLES F inal Result [facility] [address] * (ABNORMAL) POC Glucose Monitoring Device (10/25/2024 9:56 PM EDT) [facility] POC Glucose Monitoring Device 103(H) 70 - 100 mg/dL 10/25/2024 9:[address] [facility] Blood 10/25/2024 9:56 PM EDT 10/25/2024 9:57 PM EDT Semaj Mcnair III, MD POINT OF CARE TEST ORDERABLES Final Result Performing Organization Address [facility] de Phone Number [facility] [address] * ECG 12 lead (MUSE) (10/25/2024 9:34 PM EDT) 10/25/2024 9:34 PM EDT Narrative MUSE - 10/27/2024 10:08 AM EDT Ventricular Rate: 97 BPM Atrial Rate: 86 BPM QRS Duration: 106 ms QT: 532 ms QTc: 675 ms P [place]: 38 degrees R [place]: -29 degrees T [place]: 32 degrees Diagnosis Line: Critical Test Result: Long QTc , AV Block ^ SINUS RHYTHM WITH PREMATURE VENTRICULAR COMPLEXES ^ PROLONGED QT ^ NONSPECIFIC ST AND T WAVE CHANGES ^ ABNORMAL ECG ^ ^ Confirmed by MD [facility] ([id number] on 10/27/2024 10:08:26 AM us Leandra Og MD ECG ORDERABLES Final Result Performing Organization Address [facility] Co de Phone Number MUSE * Hepatitis C RNA, Quant Reflex to Genotyp (10/25/2024 8:18 PM EDT) [facility] International Units Not Detected IU/mL 10/27/2024 [...] log 10 IU/mL 10/27/2024 11:[address] [facility] Comment:HCV RNA not detected . Plasma 10/25/2024 8:18 PM EDT 10/25/2024 10:27 PM EDT us Leandra Og MD LAB BLOOD ORDERABLES F inal Result [facility] [address] [place] [address], [facility] * Urinalysis w/Rfl to Microscopic (10/25/2024 8:18 PM EDT) Color, UA Yellow Yellow,Straw 10/25/2024 10:[address] [facility] Clarity, UA Clear Clear 10/25/2024 10:[address] [facility] Specific [place], UA 1.010 1.005 - 1.035 10/25/2024 10:[address] [facility] pH, UA 6.0 5.0 - 8.0 10/25/2024 10:[address] [facility] Protein, UA Negative Negative mg/dL 10/25/2024 10:[address] [facility] Glucose, UA Negative Negative mg/dL 10/25/2024 10:[address] [facility] Ketones, UA Negative Negative mg/dL 10/25/2024 10:[address] [facility] Bilirubin, UA Negative Negative 10/25/2024 10:[address] [facility] Blood, UA Negative Negative 10/25/2024 10:[address] [facility] Nitrite, UA Negative Negative 10/25/2024 10:[address] [facility] Urobilinogen, UA <2.0 0.2 - 1.9 mg/dL 10/25/2024 10:[address] [facility] Leukocyte Esterase, UA Negative Negative 10/25/2024 10:[address] [facility] Urine 10/25/2024 8:18 PM EDT 10/25/2024 10:35 PM EDT [facility] - 10/25/2024 10:38 PM EDT Microscopic testing is not performed when the dipstick is negative for blood, leukocyte, protein and nitrite. Leandra Og MD URINE ORDERABLES Final Result [facility] [address] [employer] [facility]. [address] * Toxoplasma gondii antibody, IgG (10/25/2024 8:18 PM EDT) Pathologist [facility] Toxoplasma Gondii IgG <3.0 0.0 - 7.1 IU/mL 10/27/2024 7:[address] [facility] Comment: Negative <7.2 Equivocal 7.2 - 8.7 Positive >8.7 Serum 10/25/2024 8:18 PM EDT 10/27/2024 8:06 AM EDT [facility] - 10/27/2024 8:06 AM EDT PERFORMED AT: [facility] [address] [id number] [employer] AND DAMAGE CLERK: Bassam Khalil, PhD PHONE: [phone] Leandra Og MD LAB BLOOD ORDERABLES F inal Result [facility] [address] [facility]. [address] * Antibody Screen (10/25/2024 7:46 PM EDT) Pathologist [facility] Antibody Screen Negative 10/25/2024 10:[address] [facility] Blood 10/25/2024 7:46 PM EDT 10/25/2024 9:54 PM EDT [facility] - 10/25/2024 10:44 PM EDT Testing performed by [facility] Transfusion Service Ben Blake MD BLOOD BANK TEST ORDERABLES Fi nal Result [facility] [address] [employer] [facility]. [address] * ABO/Rh (10/25/2024 7:46 PM EDT) ABO Grouping O 10/25/2024 10:[address] [facility] Rh Type Positive 10/25/2024 10:23 PM EDT [facility] Blood 10/25/2024 7:46 PM EDT 10/25/2024 9:54 PM EDT us Ben Blake MD BLOOD BANK TEST ORDERABLES Fi nal Result [facility] [address] [place] * (ABNORMAL) TEG-Standard Global Hemostasis (Rapid TEG with Heparin Effect, Contains a Baseline TEG) (10/25/2024 7:46 PM EDT) Citrated Kaolin Reaction Time (TEGHEPARINASE) 8.4 4.6 - 9.1 minutes 10/25/2024 10:[address] [facility] Citrated Rapid Teg Maximum Amplitude (TEGHEPARINASE) <40.0(L) 52.0 - 70.0 mm 10/25/2024 10:49 PM EDT [facility] Citrated Functional Fibrinogen Maximum Amplitude (TEGHEPARINASE) 6.7(L) 15.0 - 32.0 mm 10/25/2024 10:49 PM EDT [facility] Citrated Kaolin W/Heparinase Reaction Time (TEGHEPARINASE) 8.1 4.3 - 8.3 minutes 10/25/2024 10:[address] [facility] Citrated Kaolin K-Time (TEGHEPARINASE) 2.5(A) 0.8 - 2.1 minutes 10/25/2024 10:[address] [facility] Citrated Kaolin Angle (TEGHEPARINASE) 65.7(A) 63.0 - 78.0 degrees 10/25/2024 10:[address] [facility] Citrated Kaolin Maximum Amplitude (TEGHEPARINASE) <40.0(L) 52.0 - 69.0 mm 10/25/2024 10:[address] [facility] Citrated Functional Fibrinogen- Fibrinogen Level (TEGHEPARINASE) 159.5(L) 278.0 - 581.0 mg/dL 10/25/2024 10:[address] [facility] Whole Blood (Citrate) 10/25/2024 7:46 PM EDT 10/25/2024 10:15 PM EDT us Ben Blake MD LAB BLOOD ORDERABLES Final Re sult [facility] [address] [place] [address], [facility] documented in [...] at 0600 0614 (Given - Provider: Vandana iVlchis RN)1255 (Given - Provider: Paulette Flannery RN)2056 (Given - Provider: Yvonne Gale RN) 0614 (Given - Provider: Yvonne Gale, ЮЛИЯ)1345 [...] Yvonne Gale, ЮЛИЯ) 0543 (Given - Provider: Yvnone Gale RN) lidocaine (LIDODERM) 5 % 2 [...] Gale RN) 1141 (Given - Provider: Paulette lFannery RN) NIFEdipine (PROCARDIA-XL) 24 hr tablet 30 [...] documented as of this encounter Care Teams What Job Titles Mean Relationship Specialty Start Date End Date Enedina Mcguire NP [address] [place] [address] PCP - General Internal Medicine 10/05/24 documented as of this encounter
--- OUTSIDE RECORDS SUMMARY | 2024-10-27 02:34 | XMS_ITS | Encounter Summary ---
Author Organization [facility] Address [facility] [place] [address] Care Team Providers Care Crown Assembly Machine Operator Name Role Phone Enedina Mcguire NP Primary Care Provider [phone] Source Comments This information has been disclosed [...] release of HIV test results or diagnoses. [id number] Reason for Visit * Auth/Cert (Routine) Specialty Diagnoses / Procedures Referred By Shane t Referred To Contact Surgical Intensive Care Diagnoses Liver transplant recipient (CMS-HCC) cirrhosis and CKD Procedures LIVER-KIDNEY TRANSPLANT [facility] SICU [address] [place] [address] Phone: tel: Referral ID Status Reason Start Date Expiration Date Visits Re quested Visits Authorized [id number] 1 1 Encounter Details Date Type Department Care Team (Late st Contact Info) Description 10/27/2024 2:34 AM EDT Anesthesia Event [facility] PERIOP [address] [place] [address] Rocky Manning MD [address] [place] [phone] Con Gramajo MD [address] [place] [address] Anesthesia Record Procedure Summary Procedure Name Responsible [...] sodium chloride 0.9% 1 00 mL IVPB (Vnmm1Inw) 1 g cefTRIAXone (ROCEPHIN) 2 g in sodium chl oride 0.9 % 100 mL Ixkk3Dmk 2 g electrolyte-r (pH 7.4)(NORMOSOL-R pH 7.4 [...] Sounds Confirmed 10/26/24 0622 by Martha Phillip, RADIO MAINTAINER 10/27/24 1310 by Chinedu Almeida, RADIO MAINTAINER Drain 10/27/24; 0636; Bulb ; Abdomen; Inferior, [...] the past 12 months has th e [employer], gas, oil, or water [employer] threatened to shut off services in your [...] in the past 12 m [facility], were you homeless or living in a penitentiary (including now)? No 10/29/2024 Yearly Questionnaire Answer [...] Blake MD - 10/26/2024 8:01 PM EDT [facility] DEPARTMENT OF ANESTHESIOLOGY PRE-PROCEDURAL EVALUATION Julien Anderson is a 39 y.o. year old male presenting for: Procedure(s): TRANSPLANT KIDNEY with bile duct reconstruction Surgeon: Harvey Domínguez III, MD Chief Complaint cirrhosis and CKD; Liver transplant recipient ([facility]) EtOH cirrhosis decompensated by esophageal varices, hepatic [...] dysrhythmias, angina, orthopnea. ECG reviewed. ROS comment: [facility] 10/14/24: IMPRESSIONS: - Patent coronary arteries without [...] is no recent study available for direct oerv-xu-uxbu comparison. Stress echo 10/09/24: - Left ventricle: [...] at baseline or with provocation, shows no ecppq-mb-hdng atrial level shunt. - Pulmonary arteries: Systolic [...] Resource Strain: Low Risk (07/09/2024) Received from [facility] Overall Financial Resource Strain (CARDIA) Difficulty of [...] No Physical Activity: Unknown (07/14/2024) Received from [facility] Exercise Vital Sign Days of Exercise per Week: Patient unable to answer Minutes of Exercise per Session: Not on file Stress: Patient Unable To Answer (07/14/2024) Received from [facility] [place] of Occupational Health - Occupational Stress Questionnaire Feeling of Stress : Patient unable to answer Social Connections: Patient Unable To Answer (07/14/2024) Received from [facility] Social Connection and Isolation Panel [...] at 9:00 PM naloxone (NARCAN) 4 mg/actuation [place] Apply 1 spray in one nostril if [...] Blood products not discussed. Plan discussed with NETWORK SECURITY OFFICER and attending. no trial extubation [1] Allergies Allergen Reactions Adhesive Itching and Rash Tegaderm adhesive on Ivs, pt states its tolerable Duloxetine Other (See Comments) Became Manic documented in this encounter Plan of Treatment Upcoming Encounters Date Type Department Care Team (Late st Contact Info) Description 12/05/2024 8:01 AM EDT Hospital Encounter [facility] ENDOSCOPY [address] [place] [phone] Chris Orosco MD [address] [place] [phone] 12/05/2024 8:01 AM EDT - 12/05/2024 8:31 AM EDT Surgery [facility] ENDOSCOPY [address] [place] [address] Chris Orosco MD [address] [place] [phone] EGD Scheduled Procedures Name Priority Associated Diagnoses Date/Ti me EGD Cirrhosis of liver with ascites, unspecified hepatic cirrhosis type (CMS-HCC) 12/05/2024 8:01 AM EDT documented as of this encounter Visit Diagnoses Diagnosis Cirrhosis of liver with ascites, unspecified hepatic cirrhosis type ([facility]) * Transfer of Care - Bryce No [...] known notable events for this encounter. Date 10/26/24 07 - 10/27/24 0659 10/27/24 07 - 10/28/24 0659 Shift [id number] 7422-7806 3195-2214 24 Hour Total 0557-0797 7496-2414 4912-2977 24 Hour Total INTAKE I.V.(mL/kg) 1450.8(11.8) 999.1(8.2) [...] 1 x 1 x 3 x Albumin 0973 417 4261 Volume (Transfuse Cryoprecipitate Transfusion Rate: Per dept [...] in sodium chloride 0.9 % 100 mL Qpxm3Mjb) 20 20 Volume (mL) (methylPREDNISolone sodium succinate (SOLU-medrol) 250 mg in sodium chloride 0.9 % 100 mL IVPB) 100 100 Volume (mL) (AMPicillin 1 g in sodium chloride 0.9% 100 mL IVPB (Bejk4Pvs)) 200.2 100 120 420.1 Volume (mL) (mycophenolate [...] 99.3 99.3 Shift Total(mL/kg) 3124.1(25.5) 4253.7(34.7) 6907(56.4) 35407.8(116.6) OUTPUT Urine(mL/kg/hr) 955(1) 505(0.5) 690(0.7) 2150(0.7) 360 360 Urine 315 315 360 360 Output (mL) (IUC (Berkowitz) Triple-lumen (3-Way) 18 Fr.) 955 816 522 3862 Emesis/NG output 250 600 850 Drainage Output (mL) (NG/OG Tube Orogastric) 250 600 850 Drains 1700 8203 746 7895 Output (mL) (Drain Bilary Abdomen Inferior;Right) 100 150 250 Output (mL) ([REMOVED] Drain 1 Abdomen Right;Superior) 800 243 450 7352 Output (mL) (Drain 2 Left;Superior) 800 293 12 3188 Blood 300 300 Est Blood Loss 300 [...] in sodium chloride 0.9% 100 mL IVPB (Obnl6Tzr) 1 g, Intravenous, at 200 mL/hr, Every 6 hours scheduled (4 times per day), First dose on Sun10/26/24 at 0630, For 2 days, Dosage may need to be adjusted for renal dysfunction. Full dose is 1g IV q6h Use Jjhj9Ncg Adapter - Mix Thoroughly Before Administration New Bag 10/28/2024 1:58 AM EDT 1 g 200 mL/hr Rate/Dose Verify 10/27/2024 7:00 PM EDT 200 mL/ hr New Bag 10/27/2024 6:42 PM EDT 1 g 200 mL/hr angiotensin II (GIAPREZA) 0.005 mg/mL in sodium chloride 0.9 % 500 mL infusion Intravenous, at 0-58.8 mL/hr, Continuous, Starting on [place] 10/26/24 at 1300, Enter on pump as N O DRUG SELECTED Weaning: Once underlying shock sufficiently improved, defined as yyd-qcjmucnlndh-GN-presso r requirement ? 0.2 mcg/kg/min (norepinephrine equivalent) [...] in sodium chloride 0.9 % 100 mL Fapv5Nih Intravenous, Administer over 30 Minutes, Continuous - [...] paralyzed: Do not titrate - follow policy [id number]-MGMT-109-01. Start infusion if unable to maintain goal [...] 10/27/2024 6:09 AM EDT Transfuse RBC Routine Bag 10/27/2024 3:52 AM EDT Transfuse RBC [...] documented as of this encounter Care Teams Crown Assembly Machine Operator Relationship Specialty Start Date End Date Enedina Mcguire NP [address] [place] [address] PCP - General Internal Medicine 10/05/24 documented as of this encounter
--- OUTSIDE RECORDS SUMMARY | 2024-11-04 08:40 | XMS_ITS | Encounter Summary ---
Author Organization [facility] Address [address] [place] [address] Care Team Providers Care Pest Control Service Technician Name Role Phone Enedina Mcguire NP Primary Care Provider + [phone] Maureen Pantoja RN Unavailable Unavail able Source [...] release of HIV test results or diagnoses. [id number] Reason for Visit * Reason Comments Liver Transplant Follow-up Encounter Details Date Type Department Care Team (Late st Contact Info) Description 11/04/2024 8:40 AM EDT Office Visit [facility] Liver Transplant at [place] [address] [facility] [address] [place] [address] Cosmo Pacheco MD [address] [place] [address] [address] [place] [address] Liver transplant recipient (CMS-HCC) (Primary [...] the past 12 months has th e [employer], [employer], oil, or water company threatened to shut [...] Nutrition: patient continues close f/u w/ transplant logging operations inspector. - Bone health: Vit D level to be drawn ~POD#90. - Labs: Labs (CBC w/ diff, renal panel, liver panel, tacro level) twice a week. Lipid panel, [id number] Vit D level to be drawn at [...] management for this patient. Cosmo Pacheco MD Flour Blender Helper of Transplant Surgery [phone] (m) [1] Allergies Allergen Reactions Adhesive Itching [...] 8:01 AM EDT Hospital Encounter [facility] ENDOSCOPY [address] [place] [address] Chris Orosco MD [address] [place] [address] [phone] 12/05/2024 8:01 AM EDT - 12/05/2024 8:31 AM EDT Surgery [facility] ENDOSCOPY [address] [place] [address] Chris Orosco MD [address] [place] [address] [phone] EGD Scheduled Procedures Name Priority Associated Diagnoses [...] documented as of this encounter Care Teams Pest Control Service Technician Relationship Specialty Start Date End Date Enedina Mcguire NP [address] [place] [address] PCP - General Internal Medicine 10/05/24 Maureen Pantoja, ЮЛИЯ Txp Post Coordinator Transplant Hepatology 10/28/24 documented as of this encounter
--- OUTSIDE RECORDS SUMMARY | 2024-11-04 10:10 | XMS_ITS | Encounter Summary ---
Author Organization [facility] Address [facility] [place] [address] Care Team Providers Care Whiteprinting Machine Operator Name Role Phone Enedina Mcguire NP Primary Care Provider + [phone] Maureen Pantoja RN Unavailable Unavail able Source [...] release of HIV test results or diagnoses. [id number] Reason for Visit * Reason Comments Kidney Transplant Follow-up Encounter Details Date Type Department Care Team (Late st Contact Info) Description 11/04/2024 10:10 AM EDT Office Visit [facility] Liver Transplant at [facility] [address] [facility] [address] [place] [address] Leisa Juarez MD [facility] 2nd [place] [address] Kidney transplant recipient (Primary Dx); [...] the past 12 months has th e [employer], [employer], oil, or water [employer] threatened to shut off services in your [...] packing; Surgeon: Harvey Domínguez III, MD; Location: [facility]; Service: Transplant; Laterality: N/A; Family History: [...] Resource Strain: Low Risk (07/09/2024) Received from [facility] Overall Financial Resource Strain (CARDIA) [...] No Physical Activity: Unknown (07/14/2024) Received from [facility] Exercise Vital Sign Days of Exercise per Week: Patient unable to answer Minutes of Exercise per Session: Not on file Stress: Patient Unable To Answer (07/14/2024) Received from [facility] [employer] [place] [employer] Occupational Health - Occupational Stress Questionnaire Feeling of Stress : Patient unable to answer Social Connections: Patient Unable To Answer (07/14/2024) Received from [facility] Social Connection and Isolation Panel [NHANES] Frequency of Communication with Friends and Family: Patient unable to answer Frequency of Social Gatherings with Friends and Family: Patient unable to answer Attends Jain Services: Patient unable to answer Active Member [...] = 12 units lancets (ACCU-CHEK SOFTCLIX LANCETS) [facility] Use to test blood sugar up to [...] times a day. naloxone (NARCAN) 4 mg/actuation [place] Apply 1 spray in one nostril if [...] Results Component Value Date PTH 36.0 10/25/2024 [id number] 7.1 (L) 10/08/2024 Hemoglobin A1C: Lab Results [...] 12/05/2024 8:01 AM EDT Hospital Encounter [facility] ENDOSCOPY [address] [place] [id number] Chris Orosco MD [address] [place] [phone] 12/05/2024 8:01 AM EDT - 12/05/2024 8:31 AM EDT Surgery [facility] ENDOSCOPY [address] [place] [id number] Chris Orosco MD [address] [place] [phone] EGD Scheduled Orders Name Type Priority Associated [...] for 12 Occurrences starting 11/03/2024 until 05/18/2025, 2 completed Enteric Pathogen Panel Lab Routine Diarrhea of presumed infectious origin 1 Occurrences starting 11/04/2024 until 11/04/2025 Ova and Parasite Comprehensive w/ Giardia/Crypto Microbiology Routine Diarrhea of presumed infectious origin 1 Occurrences starting 11/04/2024 until 11/04/2025 Clostridium difficile DNA Amplification Lab Routine Diarrhea of presumed infectious origin 1 Occurrences starting 11/04/2024 until 11/04/2025 Scheduled Procedures Name Priority Associated Diagnoses Date/Ti me EGD Cirrhosis of liver with ascites, unspecified hepatic cirrhosis type (CMS-HCC) 12/05/2024 8:01 AM EDT documented as of this encounter Results * (ABNORMAL) Magnesium (11/11/2024 9:13 AM EDT) Magnesium 1.2(L) 1.5 - 2.5 mg/dL 11/11/2024 10:51 AM EDT [facility] Plasma 11/11/2024 9:13 AM EDT 11/11/2024 10:19 AM EDT Yareli Zaragoza CNP LAB BLOOD ORDERABLES Denisse l Result Performing Organization Address [facility]/ZIP Co de Phone Number [facility] [address] * (ABNORMAL) Post Kidney Transplant Urine Culture (11/11/2024 9:13 AM EDT) Culture Result Enterococcus faecium(A) [facility] Comment: <1,000 cfu/mL Identified by MALDI-TOF MS No Further Workup Midstream Urine URINE SPECIMEN / Unknown 11/11/2024 9:13 AM EDT 11/11/2024 10:17 AM EDT Yareli Zaragoza [facility] MICROBIOLOGY - GENERAL OR DERABLES Final Result Performing Organization Address [facility] de Phone Number [facility] [address] [facility]. [address] * Protein / creatinine ratio, urine (11/11/2024 9:13 AM EDT) Creatinine, Urine 71.40 mg/dL 11/11/2024 10:38 AM EDT [facility] Comment:Reference range not established for this test. Total Protein, Ur 28 mg/dL 11/11/2024 10:38 AM EDT [facility] Comment:Reference range not established for this test. Prot/Creat Ratio, Ur 0.39 ratio 11/11/2024 10:38 AM EDT [facility] Urine 11/11/2024 9:13 AM EDT 11/11/2024 10:12 AM EDT Yareli Zaragoza CNP URINE ORDERABLES Final Re sult Performing Organization Address [facility] Co de Phone Number [facility] [address] * (ABNORMAL) Urinalysis w/Rfl to Microscopic (11/11/2024 9:13 AM EDT) Color, UA Straw Yellow,Straw 11/11/2024 10:36 AM EDT [facility] Clarity, UA Clear Clear 11/11/2024 10:36 AM EDT [facility] Specific [place], UA 1.015 1.005 - 1.035 11/11/2024 10:36 AM EDT [facility] pH, UA 6.0 5.0 - 8.0 11/11/2024 10:36 AM EDT [facility] Protein, UA Negative Negative mg/dL 11/11/2024 10:36 AM EDT [facility] Glucose, UA Negative Negative mg/dL 11/11/2024 10:36 AM EDT [facility] Ketones, UA Negative Negative mg/dL 11/11/2024 10:36 AM EDT [facility] Bilirubin, UA Negative Negative 11/11/2024 10:36 AM EDT [facility] Blood, UA Small(A) Negative 11/11/2024 10:36 AM EDT [facility] Nitrite, UA Negative Negative 11/11/2024 10:36 AM EDT [facility] Urobilinogen, UA <2.0 0.2 - 1.9 mg/dL 11/11/2024 10:36 AM EDT [facility] Leukocyte Esterase, UA Negative Negative 11/11/2024 10:36 AM EDT [facility] RBC, UA 13(H) 0 - 3 /HPF 11/11/2024 10:36 AM EDT [facility] WBC, UA 4 0 - 5 /HPF 11/11/2024 10:36 AM T [facility] Urine 11/11/2024 9:13 AM EDT 11/11/2024 10:10 AM EDT Yareli Zaragoza METER MECHANIC URINE ORDERABLES Final Re sult [facility] [address] [facility] * (ABNORMAL) Magnesium (11/04/2024 8:46 AM EDT) Magnesium 1.0(L) 1.5 - 2.5 mg/dL 11/04/2024 10:06 AM EDT [facility] Plasma 11/04/2024 8:4 6 AM EDT 11/04/2024 9:32 AM EDT Yareli Zaragoza [facility] BLOOD ORDERABLES Denisse l Result Performing Organization Address City/[facility] Co de Phone Number [facility] [address] [facility] [place] [address], [facility] * (ABNORMAL) Post Kidney Transplant Urine Culture (11/04/2024 8:46 AM EDT) Pathologist [facility] Culture Result Enterococcus faecium, Vancomycin Resistant(A) [facility] Comment: 1,000- <10,000 cfu/mL Identified [...] SARMAD >=32: Resistant Comment:See Results Yareli Zaragoza [facility] MICROBIOLOGY - GENERAL OR DERABLES Final Result Performing Organization Address [facility] Co de Phone Number [facility] [address] [facility] * Protein / creatinine ratio, urine (11/04/2024 8:46 AM EDT) Creatinine, Urine 37.30 mg/dL 11/04/2024 2:55 PM EDT [facility] Comment:Reference range not established for this test. Total Protein, Ur 42 mg/dL 11/04/2024 2:55 PM EDT [facility] Comment:Reference range not established for this test. Prot/Creat Ratio, Ur 1.13 ratio 11/04/2024 2:55 PM EDT [facility] Urine 11/04/2024 8:46 AM EDT 11/04/2024 9:32 AM EDT Yareli Zaragoza METER MECHANIC URINE ORDERABLES Final Re sult [facility] [address] [place] [address] * (ABNORMAL) Urinalysis w/Rfl to Microscopic (11/04/2024 8:46 AM EDT) Color, UA Straw Yellow,Straw 11/04/2024 10:07 AM EDT [facility] Clarity, UA Clear Clear 11/04/2024 10:07 AM EDT [facility] Specific [place], UA 1.012 1.005 - 1.035 11/04/2024 10:07 AM EDT [facility] pH, UA 6.5 5.0 - 8.0 11/04/2024 10:07 AM EDT [facility] Protein, UA Trace(A) Negative mg/dL 11/04/2024 10:07 AM EDT [facility] Glucose, UA Negative Negative mg/dL 11/04/2024 10:07 AM EDT [facility] Ketones, UA Negative Negative mg/dL 11/04/2024 10:07 AM EDT [facility] Bilirubin, UA Negative Negative 11/04/2024 10:07 AM EDT [facility] Blood, UA Large(A) Negative 11/04/2024 10:07 AM EDT [facility] Nitrite, UA Negative Negative 11/04/2024 10:07 AM EDT [facility] Urobilinogen, UA <2.0 0.2 - 1.9 mg/dL 11/04/2024 10:07 AM EDT [facility] Leukocyte Esterase, UA Negative Negative 11/04/2024 10:07 AM EDT [facility] RBC, UA >100(H) 0 - 3 /HPF 11/04/2024 10:07 AM EDT [facility] WBC, UA 2 0 - 5 /HPF 11/04/2024 10:07 AM EDT [facility] Bacteria, UA Rare(A) None Seen /HPF 11/04/2024 10:07 AM EDT [facility] Hyaline Casts, UA 3(H) 0 - 2 /LPF 11/04/2024 10:07 AM EDT [facility] Urine 11/04/2024 8:46 AM EDT 11/04/2024 9:33 AM EDT us Yareli Zaragoza METER MECHANIC URINE ORDERABLES Final Re sult [facility] [address] [place] [address], [facility] documented in this encounter Visit Diagnoses Diagnosis Kidney transplant recipient- Primary Diarrhea of presumed infectious origin Hypomagnesemia Disorders of magnesium metabolism Hypervolemia, unspecified hypervolemia type Liver transplant recipient (CMS-HCC) Other hypervolemia Hyperparathyroidism (CMS-HCC) Hyperparathyroidism, unspecified Nausea and vomiting, unspecified vomiting type Cirrhosis of liver with ascites, unspecified hepatic cirrhosis type (CMS-HCC) documented in this encounter Additional Health Concerns 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
--- OUTSIDE RECORDS SUMMARY | 2024-11-11 08:50 | XMS_ITS | Encounter Summary ---
Author Organization [facility] Address [facility] [place] [address] Care Team Providers Care Photolithographic Stripper Name Role Phone Enedina Mcguire NP Primary Care Provider + [phone] Maureen Pantoja RN Unavailable Unavail able Source [...] release of HIV test results or diagnoses. [id number] Reason for Visit * Reason Comments Labs Only Encounter Details Date Type Department Care Team (Late st Contact Info) Description 11/11/2024 8:50 AM EDT Specimen [facility] Outreach Lab [facility] [place] [address] Harvey Domínguez III, MD [facility]0 [facility] [address] [place] [address] Liver replaced by transplant ([facility]); Immunosuppressive management encounter following liver transplant ([facility]); Kidney transplant recipient Social History Tobacco Use Types Packs/Day Years Used Date Smoking Tobacco: Former Cigarettes Smokeless Tobacco: Current Alcohol Use Standard Drinks/Week Comments Yes 0 (1 standard drink = 0.6 oz pure alcohol) History of alcohol abuse, reports no use in 3 week- typically endorses use as 4 glasses of wine a days Utilities Answer Date Recorded In the past 12 months has th e [employer], [employer], oil, or water company threatened to shut [...] Description 12/05/2024 8:01 AM EDT Hospital Encounter [facility] ENDOSCOPY [address] [place] [address] Chris Orosco MD [address] [place] [phone] 12/05/2024 8:01 AM EDT - 12/05/2024 8:31 AM EDT Surgery [facility] ENDOSCOPY [address] [place] [address] Chris Orosco MD [address] [place] [phone] EGD Scheduled Procedures Name Priority Associated Diagnoses Date/Ti me EGD Cirrhosis of liver with ascites, unspecified hepatic cirrhosis type (CMS-HCC) 12/05/2024 8:01 AM EDT documented as of this encounter Procedures Procedure Name Priority Date/Time Associated Diagnosis Comments POST KIDNEY TRANSPLANT URINE CULTURE Routine 11/11/2024 9:13 AM EDT Kidney transplant recipient HEPATIC FUNCTION PANEL Routine 11/11/2024 9:13 AM EDT Liver replaced by transplant (CMS-HCC) Immunosuppressive management encounter following liver transplant (CMS-HCC) RENAL FUNCTION PANEL W/EGFR Routine 11/11/2024 9:13 AM EDT Liver replaced by transplant (CMS-HCC) Immunosuppressive management encounter following liver transplant (CMS-HCC) TACROLIMUS LEVEL Routine 11/11/2024 9:13 AM EDT Liver replaced by transplant ([facility]) Immunosuppressive management encounter following liver transplant (CMS-HCC) PROTEIN / CREATININE RATIO, URINE Routine 11/11/2024 9:13 AM EDT Kidney transplant recipient DIFFERENTIAL Routine 11/11/2024 9:13 AM EDT Liver replaced by transplant ([facility]) Immunosuppressive management encounter following liver transplant (CMS-HCC) URINALYSIS W/RFL TO MICROSCOPIC Routine 11/11/2024 9:13 AM EDT Kidney transplant recipient CBC Routine 11/11/2024 9:13 AM EDT Liver replaced by transplant ([facility]) Immunosuppressive management encounter following liver transplant ([facility]) MAGNESIUM Routine 11/11/2024 9:13 AM EDT Kidney transplant recipient documented in this encounter Results * (ABNORMAL) Magnesium (11/11/2024 9:13 AM EDT) Magnesium 1.2(L) 1.5 - 2.5 mg/dL 11/11/2024 10:51 AM EDT [facility] Plasma 11/11/2024 9:13 AM EDT 11/11/2024 10:19 AM EDT Caron Santos [facility] BLOOD ORDERABLES Denisse l Result [facility] [address] [place] [address], [place] * (ABNORMAL) Post Kidney Transplant Urine Culture (11/11/2024 9:13 AM EDT) Culture Result Enterococcus faecium(A) [facility] Comment: <1,000 cfu/mL Identified by MALDI-TOF MS No Further Workup Midstream Urine URINE SPECIMEN / Unknown 11/11/2024 9:13 AM EDT 11/11/2024 10:17 AM EDT Caron Santos CNP MICROBIOLOGY - GENERAL OR DERABLES Final Result Performing Organization Address [facility]/ZIP Co de Phone Number [facility] [address] [facility]. [address] * Protein / creatinine ratio, urine (11/11/2024 9:13 AM EDT) Creatinine, Urine 71.40 mg/dL 11/11/2024 10:38 AM EDT [facility] Comment:Reference range not established for this test. Total Protein, Ur 28 mg/dL 11/11/2024 10:38 AM EDT [facility] Comment:Reference range not established for this test. Prot/Creat Ratio, Ur 0.39 ratio 11/11/2024 10:38 AM EDT [facility] Urine 11/11/2024 9:1 3 AM EDT 11/11/2024 10:12 AM EDT Caron Santos CNP URINE ORDERABLES Final Re sult Performing Organization Address [facility] Co de Phone Number [facility] [address] [facility]. [address] * (ABNORMAL) Urinalysis w/Rfl to Microscopic (11/11/2024 9:13 AM EDT) Color, UA Straw Yellow,Straw 11/11/2024 10:36 AM EDT [facility] Clarity, UA Clear Clear 11/11/2024 10:36 AM EDT [facility] Specific Beatrice, UA 1.015 1.005 - 1.035 11/11/2024 10:36 AM EDT [facility] pH, UA 6.0 5.0 - 8.0 11/11/2024 10:36 AM EDT [facility] Protein, UA Negative Negative mg/dL 11/11/2024 10:36 AM EDT [facility] Glucose, UA Negative Negative mg/dL 11/11/2024 10:36 AM EDT [facility] Ketones, UA Negative Negative mg/dL 11/11/2024 10:36 AM EDT [facility] Bilirubin, UA Negative Negative 11/11/2024 10:36 AM EDT [facility] Blood, UA Small(A) Negative 11/11/2024 10:36 AM EDT [facility] Nitrite, UA Negative Negative 11/11/2024 10:36 AM EDT [facility] Urobilinogen, UA <2.0 0.2 - 1.9 mg/dL 11/11/2024 10:36 AM EDT [facility] Leukocyte Esterase, UA Negative Negative 11/11/2024 10:36 AM EDT [facility] RBC, UA 13(H) 0 - 3 /HPF 11/11/2024 10:36 AM EDT [facility] WBC, UA 4 0 - 5 /HPF 11/11/2024 10:36 AM EDT [facility] Urine 11/11/2024 9:13 AM EDT 11/11/2024 10:10 AM EDT Caron Santos [employer] URINE ORDERABLES Final Re sult [facility] [address] * (ABNORMAL) Differential (11/11/2024 9:13 AM EDT) Neutrophils Relative 69.3 40.0 - 80.0 % 11/11/2024 10:31 AM EDT [facility] Lymphocytes Relative 17.6 15.0 - 45.0 % 11/11/2024 10:31 AM EDT [facility] Monocytes Relative 8.5 0.0 - 12.0 % 11/11/2024 10:31 AM EDT [facility] Eosinophils Relative 2.0 0.0 - 8.0 % 11/11/2024 10:31 AM EDT [facility] Basophils Relative 2.6(H) 0.0 - 1.0 % 11/11/2024 10:31 AM EDT [facility] nRBC 0 0 - 0 /100 WBC 11/11/2024 10:31 AM EDT [facility] Neutrophils Absolute 4,920 1,520 - 8,640 /uL 11/11/2024 10:31 AM EDT [facility] Lymphocytes Absolute 1,250 570 - 4,860 /uL 11/11/2024 10:31 AM EDT [facility] Monocytes Absolute 604 0 - 1,296 /uL 11/11/2024 10:31 AM EDT [facility] Eosinophils Absolute 142 0 - 864 /uL 11/11/2024 10:31 AM EDT [facility] Basophils Absolute 185(H) 0 - 108 /uL 11/11/2024 10:31 AM EDT [facility] Whole Blood 11/11/2024 9:13 AM EDT 11/11/2024 10:19 AM EDT Narrative [facility] - 11/11/2024 10:31 AM EDT Standing orders to be drawn: Every Sunday and before 9am and prior to patient taking morning medications. Liver Transplant Fax results to [phone] Call Critical results to [phone] us Harvey Domínguez III, MD LAB BLOOD ORDERABLE S Final Result [facility] [address] * (ABNORMAL) CBC (11/11/2024 9:13 AM EDT) WBC 7.1 3.8 - 10.8 10E3/uL 11/11/2024 10:31 AM EDT [facility] RBC 3.42(L) 4.20 - 5.80 10E6/uL 11/11/2024 10:31 AM EDT [facility] Hemoglobin 10.6(L) 13.2 - 17.1 g/dL 11/11/2024 10:31 AM EDT [facility] Hematocrit 31.3(L) 38.5 - 50.0 % 11/11/2024 10:31 AM EDT [facility] MCV 91.5 80.0 - 100.0 fL 11/11/2024 10:31 AM EDT [facility] MCH 31.0 27.0 - 33.0 pg 11/11/2024 10:31 AM EDT [facility] MCHC 33.8 32.0 - 36.0 g/dL 11/11/2024 10:31 AM EDT [facility] RDW 20.5(H) 11.0 - 15.0 % 11/11/2024 10:31 AM EDT [facility] Platelets 308 140 - 400 10E3/uL 11/11/2024 10:31 AM EDT [facility] MPV 6.1(L) 7.5 - 11.5 fL 11/11/2024 10:31 AM EDT [facility] Whole Blood 11/11/2024 9:13 AM EDT 11/11/2024 10:19 AM EDT Narrative [facility] - 11/11/2024 10:31 AM EDT Standing orders to be drawn: Every Sunday and before 9am and prior to patient taking morning medications. Liver Transplant Fax results to [phone] Call Critical results to [phone] us Harvey Domínguez III, MD LAB BLOOD ORDERABLE S Final Result [facility] [address] * (ABNORMAL) Renal Function Panel w/EGFR (11/11/2024 9:13 AM EDT) Sodium 141 133 - 146 mmol/L 11/11/2024 10:51 AM EDT [facility] Potassium 4.6 3.5 - 5.3 mmol/L 11/11/2024 10:51 AM EDT [facility] Chloride 108 98 - 110 mmol/L 11/11/2024 10:51 AM EDT [facility] CO2 24 21 - 33 mmol/L 11/11/2024 10:51 AM EDT [facility] Anion Gap 9 3 - 16 mmol/L 11/11/2024 10:51 AM EDT [facility] BUN 27(H) 7 - 25 mg/dL 11/11/2024 10:51 AM EDT [facility] Creatinine 1.14 0.60 - 1.30 mg/dL 11/11/2024 10:51 AM EDT [facility] Glucose 97 70 - 100 mg/dL 11/11/2024 10:51 AM EDT [facility] Calcium 8.6 8.6 - 10.3 mg/dL 11/11/2024 10:51 AM EDT [facility] Phosphorus 4.4 2.1 - 4.7 mg/dL 11/11/2024 10:51 AM EDT [facility] Albumin 3.8 3.5 - 5.7 g/dL 11/11/2024 10:51 AM EDT [facility] Osmolality, Calculated 297 278 - 305 mOsm/kg 11/11/2024 10:51 AM EDT [facility] EGFR 83 11/11/2024 10:51 AM EDT [facility] Comment:As of 2021, the [...] Disease. Am J Kidney Dis. 2020. Plasma 11/11/2024 9:13 AM EDT 11/11/2024 10:19 AM EDT Narrative [facility] - 11/11/2024 10:51 AM EDT Standing orders to be drawn: Every Sunday and before 9am and prior to patient taking morning medications. Liver Transplant Fax results to [phone] Call Critical results to [phone] DO NOT REPLACE RENAL PANEL or HEPATIC FUNCTION PANEL w/ CMP, BMP or HEPATIC PROFILE Harvey Domínguez III, MD LAB BLOOD ORDERABLE S Final Result [facility] [address] * (ABNORMAL) Hepatic Function Panel (11/11/2024 9:13 AM EDT) Total Bilirubin 1.0 0.0 - 1.5 mg/dL 11/11/2024 10:51 AM EDT [facility] Bilirubin, Direct 0.39 0.00 - 0.40 mg/dL 11/11/2024 10:51 AM EDT [facility] AST 15 13 - 39 U/L 11/11/2024 10:51 AM EDT [facility] ALT 26 7 - 52 U/L 11/11/2024 10:51 AM EDT [facility] Alkaline Phosphatase 125 36 - 125 U/L 11/11/2024 10:51 AM EDT [facility] Total Protein 5.9(L) 6.4 - 8.9 g/dL 11/11/2024 10:51 AM EDT [facility] Albumin 3.8 3.5 - 5.7 g/dL 11/11/2024 10:51 AM EDT [facility] Bilirubin, Indirect 0.61 0.00 - 1.10 mg/dL 11/11/2024 10:51 AM EDT [facility] Plasma 11/11/2024 9:13 AM EDT 11/11/2024 10:19 AM EDT Narrative [facility] - 11/11/2024 10:51 AM EDT Standing orders to be drawn: Every Sunday and before 9am and prior to patient taking morning medications. Liver Transplant Fax results to [phone] Call Critical results to [phone] DO NOT REPLACE RENAL PANEL or HEPATIC FUNCTION PANEL w/ CMP, BMP or HEPATIC PROFILE us Harvey Domínguez III, MD LAB BLOOD ORDERABLE S Final Result [facility] [address] [place] [address], [place] * Tacrolimus level (11/11/2024 9:13 AM EDT) Tacrolimus (LC-MS) 10.4 3.0 - 15.0 ng/mL 11/11/2024 1:22 PM EDT [facility] Comment:Performed via liquid chromatography tandem mass spectrometry. Detection limit: 1 ng/mL. Individual target concentrations may vary due to target organ and time after transplant. This test has been developed and its performance characteristics determined by [facility] which is certified under the Clinical Laboratory Improvement Amendment of 1988 (CLIA-88) to perform high complexity testing. The test has not been cleared or approved by the US Food and Drug Administration (FDA). The FDA has determined that such clearance is not necessary. The test should be used for clinical purposes and is not regarded as investigational. Whole Blood 11/11/2024 9:13 AM EDT 11/11/2024 10:19 AM EDT Narrative [facility] - 11/11/2024 1:22 PM EDT Standing orders to be drawn: Every Sunday and before 9am and prior to patient taking morning medications. 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
--- OUTSIDE RECORDS SUMMARY | 2024-11-11 09:30 | XMS_ITS | Encounter Summary ---
Author Organization [facility] Address [address] [place] [address] Care Team Providers Care Respiratory Care Specialist Name Role Phone Enedina Mcguire NP Primary Care Provider + [phone] Maureen Pantoja RN Unavailable Unavail able Source [...] release of HIV test results or diagnoses. [id number] Health Encounter Details Date Type Department Care Team (Late st Contact Info) Description 11/11/2024 9:30 AM EDT Office Visit [facility] Psychiatry Transplant at [facility] [address] [facility] [address] [place] [address] Craig Warren PsyD [address] [facility] [address] [place] [address] PTSD (post-traumatic stress disorder) (Primary [...] In the past 12 months has th [employer], [employer], or [employer] threatened to shut off services in your [...] alcohol and CKD IIIb/IV. Seen by this typewriter operator automatic for pre-surgical evaluation. PMH includes PTSD and [...] Description 12/05/2024 8:01 AM EDT Hospital Encounter [facility] ENDOSCOPY [address] [place] [address] Chris Orosco MD [address] [place] [phone] 12/05/2024 8:01 AM EDT - 12/05/2024 8:31 AM EDT Surgery [facility] ENDOSCOPY [address] [place] [phone] Chris Orosco MD [address] [place] [phone] EGD Scheduled Procedures Name Priority Associated Diagnoses [...] documented as of this encounter Care Teams Respiratory Care Specialist Relationship Specialty Start Date End Date Enedina Mcguire NP [address] [place] [address] PCP - General Internal Medicine 10/05/24 Maureen Pantoja, ЮЛИЯ Txp Post Coordinator Transplant Hepatology 10/28/24 documented as of this encounter
--- OUTSIDE RECORDS SUMMARY | 2024-11-11 10:00 | XMS_ITS | Encounter Summary ---
Author Organization [facility] Address [address] [place] [address] Care Team Providers Care Claim Approver Name Role Phone Enedina Mcguire NP Primary Care Provider + [phone] Maureen Pantoja RN Unavailable Unavail able Source [...] release of HIV test results or diagnoses. [id number] Reason for Visit * Reason Comments Liver Transplant Follow-up Encounter Details Date Type Department Care Team (Late st Contact Info) Description 11/11/2024 10:00 AM EDT Office Visit [facility] Liver Transplant at [place] [address] [place] [address] Cosmo Pacheco MD [address] [place], [place] [address] [place] [address] Harvey Domínguez III, MD [address] [place] [address] 3200 [place] [address] Encounter for therapeutic drug monitoring [...] the past 12 months has th e [employer], oil, or water company threatened to shut [...] = 12 units lancets (ACCU-CHEK SOFTCLIX LANCETS) [facility] Use to test blood sugar up [...] times a day. naloxone (NARCAN) 4 mg/actuation [place] Apply 1 spray in one nostril if [...] Nutrition: patient continues close f/u w/ transplant stripper color. - Bone health: Vit D level to be drawn ~POD#90. - Labs: Labs (CBC w/ diff, renal panel, liver panel, tacro level) twice a week. Lipid panel, [id number] Vit D level to be drawn at POD#90, HgbA1C and Vit D level to be drawn at POD#180. - Follow up: RTC 2 weeks Kemar Sahni MD, Fellow, Multiorgan Abdominal Transplant Surgery. [facility]. [1] Allergies Allergen Reactions Adhesive Itching [...] Description 12/05/2024 8:01 AM EDT Hospital Encounter [facility] ENDOSCOPY [address] [place] [address] Chris Orosco MD [address] [place] [address] [phone] 12/05/2024 8:01 AM EDT - 12/05/2024 8:31 AM EDT Surgery [facility] ENDOSCOPY [address] [place] [address] Chris Orosco MD [address] [place] [phone] EGD Scheduled Procedures Name Priority Associated Diagnoses [...] documented as of this encounter Care Teams Claim Approver Relationship Specialty Start Date End Date Enedina Mcguire NP [address] [place] [address] PCP - General Internal Medicine 10/05/24 Maureen Pantoja, ЮЛИЯ Txp Post Coordinator Transplant Hepatology 10/28/24 documented as of this encounter
--- OUTSIDE RECORDS SUMMARY | 2024-11-11 10:30 | XMS_ITS | Encounter Summary ---
Author Organization [facility] Address [address] [place] [address] Care Team Providers Care Receptionist Airline Lounge Name Role Phone Enedina Mcguire NP Primary Care Provider [phone] Maureen Pantoja RN Unavailable Unavail able Source [...] release of HIV test results or diagnoses. [id number] Reason for Visit * Reason Comments Kidney Transplant Follow-up Encounter Details Date Type Department Care Team (Late st Contact Info) Description 11/11/2024 10:30 AM EDT Office Visit [facility] Liver Transplant at [facility] [address] [facility] [address] [place] [address] Unknown, Attending Provider Seble Colon [address] [facility], [facility] [address] [place] [address] Kidney replaced by transplant (Primary [...] living in a halfway (including now)? No 10/29/2024 Yearly Questionnaire Answer [...] Resource Strain: Low Risk (07/09/2024) Received from [facility] Overall Financial Resource Strain (CARDIA) [...] No Physical Activity: Unknown (07/14/2024) Received from [facility] Exercise Vital Sign Days of Exercise per Week: Patient unable to answer Minutes of Exercise per Session: Not on file Stress: Patient Unable To Answer (07/14/2024) Received from [facility] Cook Islander [place] of Occupational Health - Occupational Stress Questionnaire Feeling of Stress : Patient unable to answer Social Connections: Patient Unable To Answer (07/14/2024) Received from [facility] Social Connection and Isolation Panel [NHANES] Frequency of Communication with Friends and Family: Patient unable to answer Frequency of Social Gatherings with Friends and Family: Patient unable to answer Attends Zoroastrian Services: Patient unable to answer Active Member [...] Lastdose 11/26/24 blood sugar diagnostic (GLUCOSE BLOOD) [facility] Use to test blood sugar up to 4 times a day. blood-glucose meter (TRUE METRIX GLUCOSE METER) [facility] Use to test blood sugar up to [...] 12 units lancets (ACCU-CHEK SOFTCLIX LANCETS) [facility] Use to test blood sugar up to [...] times a day. naloxone (NARCAN) 4 mg/actuation [place] Apply 1 spray in one nostril if [...] Results Component Value Date PTH 36.0 10/25/2024 [id number] 7.1 (L) 10/08/2024 Hemoglobin A1C: Lab Results [...] 12/05/2024 8:01 AM EDT Hospital Encounter [facility] ENDOSCOPY [address] [place] [phone] Chris Orosco MD [address] [place] [phone] 12/05/2024 8:01 AM EDT - 12/05/2024 8:31 AM EDT Surgery [facility] ENDOSCOPY [address] [place] [phone] Chris Orosco MD [address] [place] [phone] EGD Scheduled Procedures Name Priority Associated Diagnoses Date/Ti me EGD Cirrhosis of liver with ascites, unspecified hepatic cirrhosis type ([facility]) 12/05/2024 8:01 AM EDT documented as of this encounter Visit Diagnoses Diagnosis Kidney replaced by transplant- Primary Hypervolemia associated with renal insufficiency Cirrhosis of liver with ascites, unspecified hepatic cirrhosis type ([facility]) documented in this encounter Additional Health Concerns Infection Onset Date Last Indicated Resolved Time 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
--- OUTSIDE RECORDS SUMMARY | 2024-11-20 07:53 | XMS_ITS | Encounter Summary ---
Author Organization Healthcare Address [address] [place] [address] Care Team Providers Care Shoe Cobbler Name Role Phone Regina, Lj Nova APRN Unavailable [phone] Enedina Mcguire APRN Primary Care Provider + Encounter Details Date Type Department Care Team ([facility] st Contact Info) Description 09/25/2024 [facility]phone [facility] Nephrology, [facility] Mineral Metabolism [address] [facility], [address] [place] [address] Chelsy Villanueva Social History Tobacco [...] often do you attend chur ch or yarsani services? Patient unable to answer 07/14/2024 Do you belong to any clubs o r organizations such as rastafarian groups, unions, fraternal or athletic groups, or [...] Score 2 09/29/2024 [facility] - Occupational Stress Questionnaire Answer Date [...] place to sleep or slept in a fdc (including now)? No 11/19/2023 PHQ-9 Answer Date [...] living in a fdc (including now)? 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-LOADING SUPERVISOR) to steady your nerves or to [...] at all 09/29/2024 1: 47 PM EDT Janiec Bryant Feeling bad about yourself - or [...] 10:35 AM EDT Lab order faxed to [facility] at [phone] * Telephone Encounter - Shelby Rush - 09/30/2024 10:16 AM EDT Clinical Concern/Question Reason for Call: Per [facility] please fax patient's lab order to: [phone] Best contact number: Other: [phone] Optimal time of day to reach caller: [...] 12/01/2024 2:20 PM EDT Office Visit [facility] Nephrology, Bone & Mineral Metabolism [address], [address] [place] [address] Yovanny Curran MD [address] [place] [address] 01/08/2025 3:20 PM EDT [facility] [address], [address] [place] [address] Vincent Braga MD [address] [place] [address] documented as of this encounter Visit Diagnoses Not on filedocumented in this encounter Additional Health Concerns Assessment Noted Time A fall risk assessment has been complete d for the patient 08/25/2024 2:07 PM EDT A Body Mass Index follow-up plan has been documented for the patient 08/29/2024 9:18 AM EDT documented as of this encounter Care Teams Shoe Cobbler Relationship Specialty Start Date End Date Enedina Mcguire APRN [address] [place] [address] PCP - General 12/04/22 Lj Tapia APRN [address] [place] [address] Referring Physician Gastroenterology 07/18/22 documented as of this encounter
--- OUTSIDE RECORDS SUMMARY | 2024-11-20 07:53 | XMS_ITS | Encounter Summary ---
Author Organization Healthcare Address [address] [place] [address] Care Team Providers Care Builder Operator Name Role Phone Jony Conde MD Primary Care Provider [phone] Lj Tapia POLICE CHIEF Unavailable [phone] Enedina Mcguire POLICE CHIEF Primary Care Provider + Nuria Fall CUSTOMER SUCCESS ASSOCIATE Unavailable Unavaila ble Encounter Details Date Type Department Care Team (Late Contact Info) Description 07/02/2022 Orders Only External Location [address] [place] [phone] Provider, External Social History Tobacco Use Types [...] PM EDT [facility] [address] [place] [address] Vincent Braga MD [address] [place] [phone] documented as of this encounter Procedures Procedure [...] on filedocumented in this encounter Care Teams Builder Operator Relationship Specialty Start Date End Date Jony Conde MD [address] [place] [address] [address] [place] [address] PCP - General 07/18/22 12/03/22 Enedina Mcguire APRN [address] [place] [address] PCP - General 12/04/22 Lj Tapia APRN [address] [place] [address] Referring Physician Gastroenterology 07/18/22 Nuria Fall LPN [facility] TCM Nurse 07/24/24 08/23/24 documented as of this encounter
--- OUTSIDE RECORDS SUMMARY | 2024-11-20 07:53 | XMS_ITS | Encounter Summary ---
Author Organization Healthcare Address [address] [place] [address] Care Team Providers Care Third Rigger Name Role Phone Jony Conde MD Primary Care Provider [phone] Lj Tapia HOSPITAL CLEANER Unavailable [phone] Enedina Mcguire HOSPITAL CLEANER Primary Care Provider + Nuria Fall HOSPITAL SOCIAL WORKER Unavailable Unavaila ble Encounter Details Date Type Department Care Team (Late Contact Info) Description 07/03/2022 Orders Only External Location [address] [place] [address] Presley Montes De Oca MD [address] [place] [id number] Social History Tobacco Use Types Packs/Day Years [...] 2:20 PM EDT Office Visit Professional [facility] Nephrology, Bone & Mineral Metabolism [address] [facility], [address] [place] [address] Yovanny Curran MD [address] [facility] [address] [place] [address] 01/08/2025 3:20 PM EDT Office Visit [facility] [place] [address] [facility], [address] [place] [address] Vincent Braga MD [address] [place] [address] documented as of this encounter [...] on filedocumented in this encounter Care Teams Third Rigger Relationship Specialty Start Date End Date Jony Conde MD [address] [place] [address] [address] [place] [address] PCP - General 07/18/22 12/03/22 Enedina Mcguire APRN [address] [place] [address] PCP - General 12/04/22 Lj Tapia APRN [address] [place] [address] Referring Physician Gastroenterology 07/18/22 Nuria Fall LPN [facility] TCM Nurse 07/24/24 08/23/24 documented as of this encounter
--- OUTSIDE RECORDS SUMMARY | 2024-11-20 07:53 | XMS_ITS | Encounter Summary ---
Author Organization Healthcare Address [address] [place] [address] Care Team Providers Care Loans Officer Name Role Phone Jony Conde MD Primary Care Provider [phone] Lj Tapia PEDIATRIC CARDIOLOGIST Unavailable [phone] Enedina Mcguire PEDIATRIC CARDIOLOGIST Primary Care Provider + Nuria Fall ROUTEMAN Unavailable Unavaila ble Encounter Details Date Type Department Care Team (Late Contact Info) Description 07/04/2022 Orders Only External Location [address] [place] [address] Presley Montes De Oca MD [address] [facility] [address] [place] [id number] Social History Tobacco Use Types Packs/Day Years [...] 12/01/2024 2:20 PM EDT Office Visit [facility] Nephrology, Bone & Mineral Metabolism [address] [facility], [address] [place] [address] Yovanny Curran MD [address] [facility] [address] [place] [address] 01/08/2025 3:20 PM EDT Office Visit [facility] [place] [address] [facility], [address] [place] [address] Vincent Braga MD [address] [place] [address] documented as of this encounter [...] on filedocumented in this encounter Care Teams Loans Officer Relationship Specialty Start Date End Date Jony Conde MD [address] [place] [address] [address] [place] [address] PCP - General 07/18/22 12/03/22 Enedina Mcguire APRN [address] [place], [place] [phone] PCP - General 12/04/22 Lj Tapia APRN [address] [place] [address] Referring Physician Gastroenterology 07/18/22 Nuria Fall LPN [facility] TCM Nurse 07/24/24 08/23/24 documented as of this encounter
--- OUTSIDE RECORDS SUMMARY | 2024-11-20 07:53 | XMS_ITS | Encounter Summary ---
Author Organization Healthcare Address [address] [place] [address] Care Team Providers Care Sql Report Analyst Name Role Phone Jony Conde MD Primary Care Provider [phone] Lj Tapia CONCRETE SCULPTOR Unavailable [phone] Enedina Mcguire CONCRETE SCULPTOR Primary Care Provider + Nuria Fall NATURAL HISTORY COLLECTIONS CURATOR Unavailable Unavaila ble Encounter Details Date Type Department Care Team (Late Contact Info) Description 07/04/2022 Orders Only External Location [address] [place] [address] Presley Montes De Oca MD [address] [facility] [address] [place] [id number] Social History Tobacco Use Types Packs/Day Years [...] 2:20 PM EDT Office Visit [facility] Nephrology, Bone & Mineral Metabolism [address] [facility] [place] [address] Yovanny Curran MD [address] [facility] [address] [place] [address] 01/08/2025 3:20 PM EDT Office Visit [facility] [place] [address] [facility], [address] [place] [address] Vincent Braga MD [address] [place] [address] documented as of this encounter [...] on filedocumented in this encounter Care Teams Sql Report Analyst Relationship Specialty Start Date End Date Jony Conde MD [address] [place] [address] [address] [place] [address] PCP - General 07/18/22 12/03/22 Enedina Mcguire APRN [address] [place], [place] [phone] PCP - General 12/04/22 Lj Tapia APRN [address] [place] [address] Referring Physician Gastroenterology 07/18/22 Nuria Fall LPN [facility] TCM Nurse 07/24/24 08/23/24 documented as of this encounter
--- OUTSIDE RECORDS SUMMARY | 2024-11-20 07:54 | XMS_ITS | Clinical Summary ---
Author Organization Healthcare Address [address] [place] [address] Care Team Providers Care Quality System Manager Name Role Phone Lj Tapia Rohini RICKS Unavailable [phone] Enedina Mcguire APRN Primary Care Provider + [...] 09/29/2024 2:20 PM EDT Office Visit Professional [facility] Nephrology, Bone & Mineral Metabolism [address], [address] [place] [address] Yovanny Flores MD NADIYA (acute kidney injury) ([facility]) (Primary Dx); Portal hypertension ([facility]); Secondary esophageal varices with bleeding ([facility]) 09/29/2024 Travel 09/25/2024 Telephone [facility] Nephrology, Bone & Mineral Metabolism [address], [address] [place] [address] Chelsy Villanueva 08/25/2024 2:20 PM EDT Office Visit [facility] Nephrology, Bone & Mineral Metabolism [address], [address] [place] [address] Kalina bell, Yovanny Nicholson MD NADIYA (acute kidney injury) ([facility]) (Primary Dx) 08/25/2024 Travel 08/24/2024 Travel 08/21/2024 Telephone [facility] Nephrology, Bone & Mineral Metabolism [address] , [address] [place] [address] Chelsy Villanueva from Last 3 [...] answer 07/14/2024 How often do you attend [facility] or anabaptist services? Patient unable to answer [...] Questionnaire-2 Score 2 09/29/2024 [facility] Questionnaire Answer [...] drink first t deborah in the morning (EYE-ASSISTANT KITCHEN MANAGER) to steady your nerves or to get rid of a hangover? 0 07/19/2024 CAGE Questionnaire Score 2 025 Utilities Answer Date Recorded In the past 12 months has th e electric, gas, oil, or water [employer] threatened [...] 12/01/2024 2:20 PM EDT Office Visit Professional [facility] Nephrology, Bone & Mineral Metabolism [address], [address] [place] [address] Yovanny Curran MD [address] [place] [address] 01/08/2025 3:20 PM EDT Office Visit [facility] [address], [address] [place] [address] Vincent Braga MD [address] [place] [address] Health Maintenance Due Date Last [...] 2 - 13+ 2-dose series) 10/11/2010 09/13/2010 [id number] Vaccine (4 - 2023- season) 2024 03/17/2021, [...] this topic Medical Devices Implanted Type Area Final Armature Tester Device Identifier Shelf Expiration Date Model / Serial / Lot Concerto Mcguffey Coil-07/03/2022 Implanted:06/15 by Timmy Brunner MD (Quantity not on file) Coil Abdomen Description:Multiple Coil Co ncerto Pgla Mcguffey Detach COILS implanted on 07/03/2022 by Timmy Brunner MD at [facility]--info can be found in Care Everywhere for [facility] as of 11/15/23 Dona Coil-07/03/2022 Implanted:06/15 by Timmy Brunner MD (Quantity not on file) Coil Abdomen [employer] Description:Coil Emb Dona 3.7/Implanted: Qty: 1 on 07/03/2022 by Timmy Brunner MD at [facility] Plate Plate N/A: Neck Plug Vasc Anton Emb Amplatzer Implanted:06/15 by Timmy Brunner MD (Quantity not on file) Plug Other Vein / / [id number] Description:Plug Vasc Anton Em b Ampltz .027 [id number] - [id number] Implanted: Qty: 1 on 07/03/2022 by Timmy Brunner MD at [facility] Stent Gastro Panc 5fr 5cm - [id number] Implanted:Qty: 1 on 11/20/2023 by Devang Mcghee, RN at [facility] Pancreas [employer]-[id number] 08/13/2026 [id number] / / [id number] Procedures Procedure Name Priority Date/Time Associated Diagnosis [...] Reactive Non Reactive 07/14/2024 5:31 PM EST [facility] Comment:Screening for HIV 1 & 2 antibodies, and P24 antigen is NONREACTIVE. No confirmatory testing is required. Blood Venous blood specimen / Unknown Venipuncture / Unknown 07/14/2024 4:31 PM EST 07/14/2024 4:56 PM EST Laureano Salinas APRN, [facility] BLOOD ORDERA BLES Final Result Performing Organization Address City/[facility] Co de Phone Number [facility] [address] [place] [address] * Hepatitis C Antibody (07/14/2024 4:31 PM EST) [facility] Signature Hepatitis C Antibody Negative Negative 07/14/2024 5:27 PM EST [facility] Blood Venous blood specimen / Unknown Venipuncture / Unknown 07/14/2024 4:31 PM EST 07/14/2024 4:54 PM EST Laureano Salinas APRN, [facility] BLOOD ORDERA BLES Final Result Performing Organization Address City/[facility] de Phone Number [facility] [address] [place] [address] from Last 3 Months or Most Recently Relevant to Health Maintenance Insurance [facility] [place] [facility] [place] [facility] Advance Directives * Full Code (Latest Code Status on File) Date Activated Date Inactivated Comments 07/11/2024 11:04 PM 07/23/2024 6:27 PM Question Answer Comments Patient has decision-making capacity? Yes * Full Code Date Activated Date Inactivated Comments 11/14/2023 10:15 PM 11/27/2023 9:08 PM Question Answer Comments Patient has decision-making capacity? Yes Care Teams Quality System Manager Relationship Specialty Start Date End Date Enedina Mcguire APRN [address] [place] [address] PCP - General 12/04/22 Lj Tapia APRN [address] [place] [address] Referring Physician Gastroenterology 07/18/22
--- OUTSIDE RECORDS SUMMARY | 2024-11-20 07:54 | XMS_ITS | Encounter Summary ---
Author Organization [facility] Address [address] [place] [address] Care Team Providers Care Window Installer Name Role Phone Enedina Mcguire NP Primary Care Provider + [phone] Maureen Pantoja RN Unavailable Unavail able Source [...] release of HIV test results or diagnoses. [id number] Reason for Visit * Reason Comments Medication Refill Refill Request 1st A ttempt Encounter Details Date Type Department Care Team (Late st Contact Info) Description 10/21/2024 Refill [facility] Gastroenterology at [facility] Office [address] [place] [address] Gerri Peterson MD [address] [place] [address] Social History Tobacco Use Types Packs/Day Years Used Date Smoking Tobacco: Former Cigarettes Smokeless Tobacco: Current Alcohol Use Standard Drinks/Week Comments Yes 0 (1 standard drink = 0.6 oz pure alcohol) History of alcohol abuse, reports no use in 3 week- typically endorses use as 4 glasses of wine a days Utilities Answer Date Recorded In the past 12 months has [employer], gas, oil, or water [employer] threatened to shut off services in your [...] Encounter [facility] ENDOSCOPY [address] [place] [address] Chris Orosco MD [address] [place] [address] 12/05/2024 8:01 AM EDT - 12/05/2024 8:31 AM EDT Surgery [facility] ENDOSCOPY [address] [place] [address] Chris Orosco MD [address] [place] [phone] EGD Scheduled Procedures Name Priority Associated Diagnoses Date/Ti me EGD Cirrhosis of liver with ascites, unspecified hepatic cirrhosis type ([facility]) 12/05/2024 8:01 AM EDT documented as [...] as of this encounter Care Teams Window Installer Relationship Specialty Start Date End Date Enedina Mcguire NP [address] [place] [address] PCP - General Internal Medicine 10/05/24 Maureen Pantoja, ЮЛИЯ Txp Post Coordinator Transplant Hepatology 10/28/24 documented as of this encounter
--- OUTSIDE RECORDS SUMMARY | 2024-11-20 07:54 | XMS_ITS | Encounter Summary ---
Author Organization [facility] Address [address] [place] [address] Care Team Providers Care Nail Expert Name Role Phone Enedina Mcguire NP Primary Care Provider + [phone] Maureen Pantoja RN Unavailable Unavail able Source [...] release of HIV test results or diagnoses. [id number] Reason for Visit * Reason Comments Medication Management Requesting RX for New Medication Encounter Details Date Type Department Care Team (Late st Contact Info) Description 10/21/2024 Telephone [facility] G[facility] at [facility] [address] [place] [address] Gerri Peterson MD [address] [place] [address] Medication Management (Requesting RX for [...] In the past 12 months has th [employer], oil, or [employer] threatened to shut off services in [...] Pt called. States he was discharged from [facility] on 10/17 with instructions to contact PCP to start Rx Torsemide 20 mg one tablet a day. PCP is out of town and was advised by commissions manager in office to contact gastro MD to obtain Rx. Pt states he is retaining 30 pounds of fluid and needs MD to send a prescription or return call dali. Pt can be reached at [phone] documented in this encounter Plan of Treatment Upcoming Encounters Date Type Department Care Team (Late st Contact Info) Description 12/05/2024 8:01 AM EDT Hospital Encounter [facility] ENDOSCOPY [address] [place] [address] Chris Orosco MD [address] [place] [phone] 12/05/2024 8:01 AM EDT - 12/05/2024 8:31 AM EDT Surgery [facility] ENDOSCOPY [address] [place] [address] Chris Orosco MD [address] [place] [address] EGD Scheduled Procedures Name Priority Associated Diagnoses [...] as of this encounter Care Teams Nail Expert Relationship Specialty Start Date End Date Enedina Mcguire NP [address] [place] [address] PCP - General Internal Medicine 10/05/24 Maureen Pantoja, RN Txp Post Coordinator Transplant Hepatology 10/28/24 documented as of this encounter
--- OUTSIDE RECORDS SUMMARY | 2024-11-20 07:54 | XMS_ITS | Encounter Summary ---
Author Organization [facility] Address [address] [place] [address] Care Team Providers Care Radio Broadcaster Name Role Phone ReginaLj dixon Rohini RICKS Unavailable [phone] Enedina Mcguire APRN Primary Care Provider + [...] any clubs o r organizations such as anglican groups, unions, fraternal or athletic groups, or [...] Recorded Patient Health Questionnaire-2 Score 2 09/29/2024 [facility] - [...] first t deborah in the morning (EYE-ASSISTANT PROFESSOR OF COMMUNICATION) to steady your nerves or to get [...] Description 12/01/2024 2:20 PM EDT Office Visit [facility] [employer] [facility] Nephrology, Bone & Mineral Metabolism [address], [address] [place] [address] Yovanny Curran MD [address] [place] [address] 01/08/2025 3:20 PM EDT Office Visit [facility] [address] [facility], [address] [place] [address] Vincent Braga MD [address] [place] [address] documented as of this encounter [...] documented as of this encounter Care Teams Radio Broadcaster Relationship Specialty Start Date End Date Enedina Mcguire APRN [address] [place] [address] PCP - General 12/04/22 Lj Tapia APRN [address] [place] [address] Referring Physician Gastroenterology 07/18/22 documented as of this encounter
--- OUTSIDE RECORDS SUMMARY | 2024-11-20 07:54 | XMS_ITS | Encounter Summary ---
Author Organization [facility] Address [address] [place] [address] Care Team Providers Care Contract Agent Name Role Phone Enedina Mcguire NP Primary Care Provider [phone] Source Comments This information has been disclosed [...] release of HIV test results or diagnoses. [id number] Encounter Details Date Type Department Care Team (Late st Contact Info) Description 10/17/2024 Chart Note [facility] Kidney Transplant at [address] [place] [address] Anny Cote RN Social History Tobacco Use [...] Recorded In the past 12 months has [employer], gas, oil, or water [employer] threatened to shut off services in your [...] Encounter [facility] ENDOSCOPY [address] [place] [address] Chris Orosco MD [address] [place] [phone] 12/05/2024 8:01 AM EDT - 12/05/2024 8:31 AM EDT Surgery [facility] ENDOSCOPY [address] [place] [address] Chris Orosco MD [address] [place] [phone] EGD Scheduled Procedures Name Priority Associated Diagnoses Date/Ti me EGD Cirrhosis of liver with ascites, unspecified hepatic cirrhosis type ([facility]) 12/05/2024 8:01 AM EDT documented as of this encounter Visit Diagnoses Not on filedocumented in this encounter Additional Health Concerns Infection Onset Date Last Indicated Resolved Time C. difficile 09/09/2024 09/09/2024 10/27/2024 8:30 AM EDT Assessment Noted Time PHQ-9 Depression Total Score: 17 05/ 025 11:00 AM EDT documented as of this encounter Care Teams Contract Agent Relationship Specialty Start Date End Date Enedina Mcguire NP [address] [place] [address] PCP - General Internal Medicine 10/05/24 documented as of this encounter
--- OUTSIDE RECORDS SUMMARY | 2024-11-20 07:55 | XMS_ITS | Encounter Summary ---
Author Organization [facility] Address [address] [place] [address] Care Team Providers Care English Language Arts Teacher Name Role Phone Enedina Mcguire NP Primary Care Provider + [phone] Maureen Pantoja RN Unavailable Unavail able Source [...] release of HIV test results or diagnoses. [id number] Health Encounter Details Date Type Department Care Team (Late st Contact Info) Description 11/10/2024 Orders Only [facility] Liver Transplant at [address] [place] [address] Maureen Pantoja, ЮЛИЯ Liver transplant recipient ([facility]) (Primary Dx); Kidney transplant recipient; Immunosuppressive management encounter following liver transplant ([facility]) Social History Tobacco Use Types Packs/Day Years Used Date Smoking Tobacco: Former Cigarettes Smokeless Tobacco: Current Alcohol Use Standard Drinks/Week Comments Yes 0 (1 standard drink = 0.6 oz pure alcohol) History of alcohol abuse, reports no use in 3 week- typically endorses use as 4 glasses of wine a days Utilities Answer Date Recorded In the past 12 months has [employer], gas, oil, or water [employer] threatened to shut off services in your [...] Description 12/05/2024 8:01 AM EDT Hospital Encounter [facility] ENDOSCOPY [address] [place] [address] Chris Orosco MD [address] [place] [phone] 12/05/2024 8:01 AM EDT - 12/05/2024 8:31 AM EDT Surgery [facility] ENDOSCOPY [address] [place] [address] Chris Orosco MD [address] [place] [address] EGD Scheduled Procedures Name Priority Associated Diagnoses [...] as of this encounter Care Teams English Language Arts Teacher Relationship Specialty Start Date End Date Enedina Mcguire NP [address] [place] [address] PCP - General Internal Medicine 10/05/24 Maureen Pantoja, ЮЛИЯ Txp Post Coordinator Transplant Hepatology 10/28/24 documented as of this encounter
--- OUTSIDE RECORDS SUMMARY | 2024-11-20 07:55 | XMS_ITS | Encounter Summary ---
Author Organization [facility] Address [address] [place] [address] Care Team Providers Care Composing Room Machinist Apprentice Name Role Phone Enedina Mcguire NP Primary Care Provider + [phone] Maureen Pantoja RN Unavailable Unavail able Source [...] release of HIV test results or diagnoses. [id number] Health Encounter Details Date Type Department Care Team (Late st Contact Info) Description 11/10/2024 Orders Only [facility] Liver Transplant at [address] [place] [address] Maureen Pantoja, RN Social History Tobacco Use [...] Recorded In the past 12 months has [employer], gas, oil, or water [employer] threatened to shut off services in [...] [facility] ENDOSCOPY [address] [place] [address] Chris Orosco MD [address] [place] [phone] 12/05/2024 8:01 AM EDT - 12/05/2024 8:31 AM EDT Surgery [facility] ENDOSCOPY [address] [place] [address] Chris Orosco MD [address] [place] [phone] EGD Scheduled Procedures Name Priority Associated Diagnoses [...] documented as of this encounter Care Teams Composing Room Machinist Apprentice Relationship Specialty Start Date End Date Enedina Mcguire NP [address] [place] [address] PCP - General Internal Medicine 10/05/24 Maureen Pantoja, ЮЛИЯ Txp Post Coordinator Transplant Hepatology 10/28/24 documented as of this encounter
--- OUTSIDE RECORDS SUMMARY | 2024-11-20 07:55 | XMS_ITS | Encounter Summary ---
Author Organization [facility] Address [address] [place] [address] Care Team Providers Care Rehabilitation Construction Specialist Name Role Phone Enedina Mcguire NP Primary Care Provider [phone] Source Comments This information has been disclosed [...] release of HIV test results or diagnoses. [id number] Encounter Details Date Type Department Care Team (Late st Contact Info) Description 10/17/2024 Chart Note [facility] Kidney Transplant at [address] [place] [phone] Anny Cote, RN Copy of HLA [...] In the past 12 months has e [employer], gas, oil, or water [employer] threatened to shut off services in your [...] AM EDT Hospital Encounter [facility] ENDOSCOPY [address] [place] [address] Chris Orosco MD [address] [place] [address] 12/05/2024 8:01 AM EDT - 12/05/2024 8:31 AM EDT Surgery [facility] ENDOSCOPY [address] [place] [address] Chris Orosco MD [address] [place] [phone] EGD Scheduled Procedures Name Priority Associated Diagnoses Date/Ti me EGD Cirrhosis of liver with ascites, unspecified hepatic cirrhosis type ([facility]) 12/05/2024 8:01 AM EDT documented as of this encounter Visit Diagnoses Not on filedocumented in this encounter Additional Health Concerns Infection Onset Date Last Indicated Resolved Time C. difficile 09/09/2024 09/09/2024 10/27/2024 8:30 AM EDT Assessment Noted Time PHQ-9 Depression Total Score: 17 025 11:00 AM EDT documented as of this encounter Care Teams Rehabilitation Construction Specialist Relationship Specialty Start Date End Date Enedina Mcguire NP [address] [place] [address] PCP - General Internal Medicine 10/05/24 documented as of this encounter
--- OUTSIDE RECORDS SUMMARY | 2024-11-20 07:56 | XMS_ITS | Encounter Summary ---
Author Organization [facility] Address [address] [place] [address] Care Team Providers Care Bridge Manager Name Role Phone Enedina Mcguire NP Primary Care Provider + [phone] Maureen Pantoja RN Unavailable Unavail able Source [...] release of HIV test results or diagnoses. [id number] Health Encounter Details Date Type Department Care Team (Late st Contact Info) Description 11/07/2024 Telephone [facility] Liver Transplant at [address] [address] Marlene Ro MA Social History [...] Recorded In the past 12 months has [employer], gas, oil, or water [employer] threatened to shut off services in your [...] Encounter [facility] ENDOSCOPY [address] [place] [address] Chris Orosco MD [address] [place] [phone] 12/05/2024 8:01 AM EDT - 12/05/2024 8:31 AM EDT Surgery [facility] ENDOSCOPY [address] [place] [address] Chris Orosco MD [address] [place] [address] EGD Scheduled Procedures Name Priority Associated Diagnoses [...] documented as of this encounter Care Teams Bridge Manager Relationship Specialty Start Date End Date Enedina Mcguire NP [address] [place] [address] PCP - General Internal Medicine 10/05/24 Maureen Pantoja, RN Txp Post Coordinator Transplant Hepatology 10/28/24 documented as of this encounter
--- OUTSIDE RECORDS SUMMARY | 2024-11-20 07:56 | XMS_ITS | Encounter Summary ---
Author Organization [facility] Address [address] [place] [address] Care Team Providers Care Webbing Supervisor Name Role Phone Eneidna Mcguire NP Primary Care Provider + [phone] Maureen Pantoja RN Unavailable Unavail able Source [...] release of HIV test results or diagnoses. [id number] Reason for Visit * Reason Comments Results Encounter Details Date Type Department Care Team (Late st Contact Info) Description 11/07/2024 Telephone [facility] Liver Transplant at [address] [address] Maureen Pantoja, RN Results Social [...] In the past 12 months has e [employer], gas, oil, or water [employer] threatened to shut off services in your [...] [facility] ENDOSCOPY [address] [place] [address] Chris Orosco MD [address] [place] [phone] 12/05/2024 8:01 AM EDT - 12/05/2024 8:31 AM EDT Surgery [facility] ENDOSCOPY [address] [place] [address] Chris Orosco MD [address] [place] [phone] EGD Scheduled Procedures Name Priority Associated Diagnoses [...] documented as of this encounter Care Teams Webbing Supervisor Relationship Specialty Start Date End Date Enedina Mcguire NP [address] [place] [address] PCP - General Internal Medicine 10/05/24 Maureen Pantoja, RN Txp Post Coordinator Transplant Hepatology 10/28/24 documented as of this encounter
--- OUTSIDE RECORDS SUMMARY | 2024-11-20 07:56 | XMS_ITS | Encounter Summary ---
Author Organization [facility] Address [address] [place] [address] Care Team Providers Care Barrel Finisher Name Role Phone Enedina Mcguire NP Primary Care Provider + [phone] Maureen Pantoja RN Unavailable Unavail able Source [...] release of HIV test results or diagnoses. [id number] Health Encounter Details Date Type Department Care Team (Late st Contact Info) Description 11/04/2024 Social Work [facility] Liver Transplant at [address] [place] [phone] Kaylin Willard MSW Social History Tobacco Use [...] Recorded In the past 12 months has [employer], gas, oil, or water [email or web address] threatened to shut off services in your [...] Patient reports he completed CD treatment with [facility] and was referred to [facility] for aftercare and will be attending 1 week virtual individual counseling sessions.He reports he was due to start this while hospitalized for the transplant and plans to reschedule his next session. Hope Stone given. SW discussed process for writing to Donor family and confirmed Pt/family have [facility] brochure. No further SW needs identified. NUBIA Barros, PSYCHOLOGY FELLOW Transplant Personal Banking Assistant documented in this encounter Plan of Treatment Upcoming Encounters Date Type Department Care Team (Late st Contact Info) Description 12/05/2024 8:01 AM EDT Hospital Encounter [facility] ENDOSCOPY [address] [place] [phone] Chris Orosco MD [address] [place] [address] 12/05/2024 8:01 AM EDT - 12/05/2024 8:31 AM EDT Surgery [facility] ENDOSCOPY [address] [place] [address] Chris Orosco MD [address] [place] [phone] EGD Scheduled Procedures Name Priority Associated Diagnoses [...] documented as of this encounter Care Teams Barrel Finisher Relationship Specialty Start Date End Date Enedina Mcguire NP [address] [place] [address] PCP - General Internal Medicine 10/05/24 Maureen Pantoja, ЮЛИЯ Txp Post Coordinator Transplant Hepatology 10/28/24 documented as of this encounter
--- OUTSIDE RECORDS SUMMARY | 2024-11-20 07:56 | XMS_ITS | Encounter Summary ---
Author Organization [facility] Address [address] [place] [address] Care Team Providers Care Compass Operator Name Role Phone Enedina Mcguire NP Primary Care Provider + [phone] Maureen Pantoja RN Unavailable Unavail able Source [...] release of HIV test results or diagnoses. [id number] Reason for Visit * Reason Comments Results Encounter Details Date Type Department Care Team (Riky st Contact Info) Description 11/11/2024 Telephone [facility] Liver Transplant at [address] [address] Maureen Pantoja, RN Results Social [...] In the past 12 months has [employer], gas, oil, or water [employer] threatened to shut off services in [...] EDT Hospital Encounter [facility] ENDOSCOPY [address] [place] [phone] Chris Orosco MD [address] [place] [phone] 12/05/2024 8:01 AM EDT - 12/05/2024 8:31 AM EDT Surgery [facility] ENDOSCOPY [address] [place] [address] Chris Orosco MD [address] [place] [phone] EGD Scheduled Procedures Name Priority Associated Diagnoses [...] documented as of this encounter Care Teams Compass Operator Relationship Specialty Start Date End Date Enedina Mcguire NP [address] [place] [address] PCP - General Internal Medicine 10/05/24 Maureen Pantoja, ЮЛИЯ Txp Post Coordinator Transplant Hepatology 10/28/24 documented as of this encounter
--- OUTSIDE RECORDS SUMMARY | 2024-11-20 07:56 | XMS_ITS | Encounter Summary ---
Author Organization [facility] Address [facility] [place] [address] Care Team Providers Care Set O Type Operator Name Role Phone Enedina Mcguire NP Primary Care Provider + [phone] Maureen Pantoja RN Unavailable Unavail able Source [...] release of HIV test results or diagnoses. [id number] Reason for Visit * Reason Comments After Hours Call Passing blood throug h stool states started this morning has had 3 bloody bowel movements kidney and liver txp done 2 weeks ago Encounter Details Date Type Department Care Team (Late st Contact Info) Description 11/09/2024 Telephone [facility] [address] [place] [address] Unknown, Attending Provider After Hours [...] Recorded In the past 12 months has [employer], gas, oil, or water [email or web address] threatened to shut off services in your [...] Caller to Patient and Callback: dionna anderson [phone] Patient of: liver txp txp team Nature of Call: Passing blood through stool states started this morning has had 3 bloody bowel movements kidney and liver txp done 2 weeks ago [employer] Provider Contacted: del turner Time and Method [...] Hospital Encounter [facility] ENDOSCOPY [address] [place] [address] Chris Orosco MD [address] [place] [phone] 12/05/2024 8:01 AM EDT - 12/05/2024 8:31 AM EDT Surgery 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
--- OUTSIDE RECORDS SUMMARY | 2024-11-20 07:56 | XMS_ITS | Encounter Summary ---
Author Organization [facility] Address [address] [place] [address] Care Team Providers Care Slug Press Operator Name Role Phone Enedina Mcguire NP Primary Care Provider [phone] Source Comments This information has been disclosed [...] release of HIV test results or diagnoses. [id number] Reason for Visit * Reason Comments Prescription Issue RX Clarification Req uest Encounter Details Date Type Department Care Team (Late st Contact Info) Description 10/20/2024 Telephone [facility] Gastroenterology at [facility] Office [address] [place] [phone] Gerri Peterson MD [address] [place] [address] Prescription Issue (RX Clarification Request [...] Recorded In the past 12 months has [employer], gas, oil, or water [employer] threatened to shut off services in your [...] to be filled Please return call to [phone]. documented in this encounter Plan of Treatment Upcoming Encounters Date Type Department Care Team (Late st Contact Info) Description 12/05/2024 8:01 AM EDT Hospital Encounter [facility] ENDOSCOPY [address] [place] [phone] Chris Orosco MD [address] [place] [phone] 12/05/2024 8:01 AM EDT - 12/05/2024 8:31 AM EDT Surgery [facility] ENDOSCOPY [address] [place] [phone] Chris Orosco MD [address] [place] [phone] EGD Scheduled Procedures Name Priority Associated Diagnoses [...] documented as of this encounter Care Teams Slug Press Operator Relationship Specialty Start Date End Date Enedina Mcguire NP [address] [place] [address] PCP - General Internal Medicine 10/05/24 documented as of this encounter
--- OUTSIDE RECORDS SUMMARY | 2024-11-20 07:56 | XMS_ITS | Encounter Summary ---
Author Organization [facility] Address [facility] [place] [address] Care Team Providers Care Facing Grinder Name Role Phone Enedina Mcguire NP Primary Care Provider [phone] Source Comments This information has been disclosed [...] release of HIV test results or diagnoses. [id number] Health Encounter Details Date Type Department Care Team (Late st Contact Info) Description 10/20/2024 Orders Only [facility] [address] [place] [address] Abdulkadir Gaspar MD [address] [facility] [address] [facility] [place] [address] Social History Tobacco Use [...] Recorded In the past 12 months has [employer], gas, oil, or water company threatened to [...] 8:01 AM EDT Hospital Encounter [facility] ENDOSCOPY [address] [place] [address] Chris Orosco MD [address] [place] [phone] 12/05/2024 8:01 AM EDT - 12/05/2024 8:[address] [facility] ENDOSCOPY [address] [place] [address] Chris Orosco MD [address] [place] [address] EGD Scheduled Procedures Name Priority Associated Diagnoses [...] LAB BLOOD ORDERABLES Final Resul t [facility] [address] [facility] [place] [address] * [facility]ox - ABO Typing Report (10/20/2024 5:03 PM EDT) 10/20/2024 5:03 PM EDT us Abdulkadir Hubert ABDULLAHI LAB BLOOD ORDERABLES Final Resul t [facility] [address] [place] [address] documented in this encounter Visit Diagnoses Not on filedocumented in this encounter Additional Health Concerns Infection Onset Date Last Indicated Resolved Time C. difficile 09/09/2024 09/09/2024 10/27/2024 8:30 AM EDT Assessment Noted Time PHQ-9 Depression Total Score: 17 025 11:00 AM EDT documented as of this encounter Care Teams Facing Grinder Relationship Specialty Start Date End Date Enedina Mcguire NP [address] [place], [place] [phone] PCP - General Internal Medicine 10/05/24 documented as of this encounter
--- OUTSIDE RECORDS SUMMARY | 2024-11-20 07:56 | XMS_ITS | Encounter Summary ---
Author Organization [facility] Address [address] [place] [address] Care Team Providers Care Tank Officer Name Role Phone Enedina Mcguire NP Primary Care Provider [phone] Source Comments This information has been disclosed [...] release of HIV test results or diagnoses. [id number] Encounter Details Date Type Department Care Team (Late st Contact Info) Description 10/20/2024 Telephone [facility] Liver Transplant at [address] [address] Mary Butler, RN Social History Tobacco Use [...] Recorded In the past 12 months has [employer], gas, oil, or water [employer] threatened to shut off services in your [...] Hep C donors. He'll also go to [facility] later today vs tomorrow morning for follow up MELD labs that I'll need in order to list him. All questions answered at this time. Lab orders faxed to [facility] at [phone] and emailed to patient. documented in this encounter Plan of Treatment Upcoming Encounters Date Type Department Care Team (Late st Contact Info) Description 12/05/2024 8:01 AM EDT Hospital Encounter [facility] ENDOSCOPY [address] [place] [address] Chris Orosco MD [address] [place] [phone] 12/05/2024 8:01 AM EDT - 12/05/2024 8:31 AM EDT Surgery [facility] ENDOSCOPY [address] [place] [address] Chris Orosco MD [address] [place] [phone] EGD Scheduled Procedures Name Priority Associated Diagnoses [...] as of this encounter Care Teams Tank Officer Relationship Specialty Start Date End Date Enedina Mcguire NP [address] [place] [address] PCP - General Internal Medicine 10/05/24 documented as of this encounter
--- OUTSIDE RECORDS SUMMARY | 2024-11-20 07:56 | XMS_ITS | Encounter Summary ---
Author Organization [facility] Address [address] [place] [address] Care Team Providers Care Sports Equipment Supervisor Name Role Phone Enedina Mcguire NP Primary Care Provider + [phone] Maureen Pantoja RN Unavailable Unavail able Source [...] release of HIV test results or diagnoses. [id number] Reason for Visit * Reason Comments Transplant Review Encounter Details Date Type Department Care Team (Late st Contact Info) Description 10/27/[address] [facility] [address] [place] [phone] Opal Cox, TaniD Social History Tobacco [...] Recorded In the past 12 months has [employer], gas, oil, or water [employer] threatened to shut off services in your [...] of Care Patient's prescriptions were sent to [facility] Dis[facility] for a Transplant benefits review. Julien Anderson received a Kidney/Liver Transplant on 10/26-10/27/24 at [facility]. The patient's discharge medications were sent to [facility] Dis[facility] Pharm[facility] for anticipated discharge of 11/03/24. The patient has a [facility] commercial insurance plan to cover prescriptions. Currently, the patient's co-pay for all medications is listed below: Acetaminophen 325 mg - $4 Alcohol swabs - $0 Aspiring 81mg - $4 Atovaquone 750 mg/5 ml - $0 Dexcom G7 Steam Box Hand- $0 Dexcom G7 Sensor- $0 Eliquis 2.5mg [...] Specialty Pharmacy Requirements: Name of Pharmacy: [facility] Specialty Phone Number: Prescriptions Transferred at Discharge Date: The patient could have potential eligibility for the pharmaceutical company medication assistance program for each of these medications. Mr Anderson's total cost of discharge prescriptions is currently $16. This total is subject to changewith the addition or change in any of the prescriptions sent to [facility] Discharge Pharmacy. A call was placed to Mr Anderson's room to discuss total cost amount from above and encourage patientto set up profile with [facility] Specialty. [facility] Specialty Pharmacy confirmed delivery of immunosuppressants [...] has been referred to the [facility] Specialty Pharmacy Transplant Team. The patient should visit [facility] for assistance if problems arise with the prescriptions. If questions arise regarding discharge medications, please call [phone]. Opal Cox Pharm D Transitions of Care [phone] documented in this encounter Plan of Treatment Upcoming Encounters Date Type Department Care Team (Late st Contact Info) Description 12/05/2024 8:01 AM EDT Hospital Encounter [facility] ENDOSCOPY [address] [place] [phone] Chris Orosco MD [address] [place] [phone] 12/05/2024 8:01 AM EDT - 12/05/2024 8:31 AM EDT Surgery [facility] ENDOSCOPY [address] [place] [phone] Chris Orosco MD [address] [place] [phone] EGD Scheduled Procedures Name Priority Associated Diagnoses [...] documented as of this encounter Care Teams Sports Equipment Supervisor Relationship Specialty Start Date End Date Enedina Mcguire NP [address] [place] [address] PCP - General Internal Medicine 10/05/24 Maureen Pantoja, ЮЛИЯ Txp Post Coordinator Transplant Hepatology 10/28/24 documented as of this encounter
--- OUTSIDE RECORDS SUMMARY | 2024-11-20 07:56 | XMS_ITS | Encounter Summary ---
Author Organization [facility] Address [address] [place] [address] Care Team Providers Care Garage Laborer Name Role Phone Enedina Mcguire NP Primary Care Provider + [phone] Maureen Pantoja RN Unavailable Unavail able Source [...] release of HIV test results or diagnoses. [id number] Health Encounter Details Date Type Department Care Team (Late st Contact Info) Description 11/04/2024 Nutrition [facility] Kidney Transplant at [address] [place] [phone] Ben Weiss, DMITRY Social History Tobacco Use [...] Recorded In the past 12 months has [employer], gas, oil, or water [employer] threatened to shut off services in your [...] of this encounter Progress Notes * Ben Weiss, RD - 11/04/2024 8:55 AM EDT Post Liver Transplant Nutrition Assessment Pertinent Information: Pt seen in clinic for follow-up. present during visit. Discharged home before FT placed. Reports much improved appetite and po intake. Using ONS consistently throughout the day. is happy with how he is eating. Continue to encourage po intake and use of ONS. Will continue to follow on an as needed basis. Anthropometrics: Height Weight BMI 6' 4 (1.93 m) 240 lb 1.6 oz (108.9 kg) 29.23 kg/m?? Weight History: Wt Readings from Last 6 Encounters: 11/04/24 (!) 240 lb 1.6 oz (108.9 kg) 11/01/24 (!) 267 lb 12.8 oz (121.5 kg) 10/10/24 (!) 263 lb 8 oz (119.5 kg) 09/05/24 (!) 262 lb 9.6 oz (119.1 kg) 09/02/24 (!) 258 lb (117 kg) 08/17/24 (!) 242 lb 11.2 oz (110.1 kg) Labs: Lab Results Component Value Date ALKPHOS 126 (H) 11/02/2024 ALT 66 (H) 11/02/2024 AST 30 11/02/2024 BILITOT 1.6 (H) 11/02/2024 ALBUMIN 3.2 (L) 11/02/2024 ALBUMIN 3.2 (L) 11/02/2024 BILIDIRECT 0.81 (H) 11/02/2024 PROT 4.6 (L) 11/02/2024 Lab Results Component Value Date NA 140 11/02/2024 K 3.3 (L) 11/02/2024 CL 107 11/02/2024 CO2 25 11/02/2024 CREATININE 1.08 11/02/2024 BUN 31 (H) 11/02/2024 Lab Results Component Value Date MG 1.3 (L) 11/02/2024 Lab Results Component Value Date CALCIUM 7.8 (L) 11/02/2024 PHOS 2.0 (L) 11/02/2024 Lab Results Component Value Date GLUCOSE 150 (H) 11/02/2024 Lab Results Component Value Date HGBA1C 5.0 10/27/2024 Lab Results Component Value Date CHOLTOT <25 10/07/2024 TRIG 30 10/07/2024 HDL 4 (L) 10/07/2024 LDL See Note 10/07/2024 Past Medical History: Diagnosis Date Alcoholic cirrhosis of liver (CMS-HCC) Esophageal varices (CMS-HCC) Hepatorenal syndrome (CMS-HCC) Hypertension Other hyperlipidemia 07/26/2024 Renal cell carcinoma (CMS-HCC) Thrombocytopenia (CMS-HCC) Thyroid disease MEDICATIONS: Current Outpatient Medications Medication Sig acetaminophen (TYLENOL) [...] day. blood-glucose meter (TRUE METRIX GLUCOSE METER) [facility] Use to test blood sugar up to [...] = 12 units lancets (ACCU-CHEK SOFTCLIX LANCETS) [facility] Use to test blood sugar up to [...] times a day. naloxone (NARCAN) 4 mg/actuation [place] Apply 1 spray in one nostril if needed. Call 911. May repeat dose in other nostril if no response in 3 minutes. NIFEdipine (PROCARDIA-XL) 30 MG (OSM) 24 hr tablet Take 1 tablet (30 mg total) by mouth daily. pen needle, diabetic 32 gauge x /32 [...] No current facility-administered medications for this visit. Documented Allergies: Allergies[1] Nutritional Intervention: General/healthful diet and Supplemental commercial beverage Goals: Choose foods consistent with low sodium, high protein diet. Eat 4 to 5 small meals a day. Do not skip meals. Eat high-protein foods. (milk, eggs, cheese, meats, beans, nuts, peanut butter) Drink Medical Food supplements as needed. Include nutrient dense foods as discussed. Keep active as able/tolerated. Kingston Weiss RD, LD Clinical Dietitian - Solid Organ Transplant Contact via Epic Chat [1] Allergies Allergen Reactions Adhesive Itching and Rash Tegaderm adhesive on Ivs, pt states its tolerable Duloxetine Other (See Comments) Became Manic documented in this encounter Plan of Treatment Upcoming Encounters Date Type Department Care Team (Late st Contact Info) Description 12/05/2024 8:01 AM EDT Hospital Encounter [facility] ENDOSCOPY [address] [place] [address] Chris Orosco MD [address] [place] [phone] 12/05/2024 8:01 AM EDT - 12/05/2024 8:31 AM EDT Surgery [facility] ENDOSCOPY [address] [place] [address] Chris Orosco MD [address] [place] [phone] EGD Scheduled Procedures Name Priority Associated Diagnoses [...] documented as of this encounter Care Teams Garage Laborer Relationship Specialty Start Date End Date Enedina Mcguire NP [address] [place] [address] PCP - General Internal Medicine 10/05/24 Maureen Pantoja, ЮЛИЯ Txp Post Coordinator Transplant Hepatology 10/28/24 documented as of this encounter
--- OUTSIDE RECORDS SUMMARY | 2024-11-20 07:56 | XMS_ITS | Encounter Summary ---
Author Organization [facility] Address [address] [place] [address] Care Team Providers Care Energy Conservation Specialist Name Role Phone Enedina Mcguire NP Primary Care Provider + [phone] Maureen Pantoja RN Unavailable Unavail able Source [...] release of HIV test results or diagnoses. [id number] Reason for Visit * Reason Comments Results Encounter Details Date Type Department Care Team (Late st Contact Info) Description 11/04/2024 Telephone [facility] Liver Transplant at [address] [address] Maureen Pantoja, RN Results Social [...] In the past 12 months has [employer], gas, oil, or water [employer] threatened to shut off services in your [...] 12/05/2024 8:01 AM EDT Hospital Encounter [facility] ENDOSCOPY [address] [place] [phone] Chris Orosco MD [address] [place] [phone] 12/05/2024 8:01 AM EDT - 12/05/2024 8:31 AM EDT Surgery [facility] ENDOSCOPY [address] [place] [phone] Chris Orosco MD [address] [place] [phone] EGD Scheduled Procedures Name Priority Associated Diagnoses [...] documented as of this encounter Care Teams Energy Conservation Specialist Relationship Specialty Start Date End Date Enedina Mcguire NP [address] [place] [address] PCP - General Internal Medicine 10/05/24 Maureen Pantoja, ЮЛИЯ Txp Post Coordinator Transplant Hepatology 10/28/24 documented as of this encounter
--- OUTSIDE RECORDS SUMMARY | 2024-11-20 07:56 | XMS_ITS | Encounter Summary ---
Author Organization [facility] Address [facility] [place] [address] Care Team Providers Care Auto Hiker Name Role Phone Enedina Mcguire NP Primary Care Provider + [phone] Maureen Pantoja RN Unavailable Unavail able Source [...] release of HIV test results or diagnoses. [id number] Health Encounter Details Date Type Department Care Team (Late st Contact Info) Description 10/31/2024 Orders Only [facility] Liver Transplant at [facility] [address] [facility] [address] [place] [address] Harvey Domínguez III, MD [address] [place] [address] [address] [place] [address] Liver replaced by transplant ([facility]) (Primary Dx); Immunosuppressive management encounter following liver transplant ([facility]) Social History Tobacco Use Types Packs/Day Years [...] past 12 months has th e electric, [employer], [employer], or water [employer] threatened to shut off services in your [...] Description 12/05/2024 8:01 AM EDT Hospital Encounter [facility] ENDOSCOPY [address] [place] [address] Chris Orosco MD [address] [place] [phone] 12/05/2024 8:01 AM EDT - 12/05/2024 8:31 AM EDT Surgery [facility] ENDOSCOPY [address] [place] [phone] Chris Orosco MD [address] [place] [phone] EGD Scheduled Orders Name Type Priority Associated [...] - 80.0 % 11/11/2024 10:31 AM EDT [facility] Lymphocytes Relative 17.6 15.0 - 45.0 % 11/11/2024 10:31 AM EDT [facility] Monocytes Relative 8.5 0.0 - 12.0 % 11/11/2024 10:31 AM EDT [facility] Eosinophils Relative 2.0 0.0 - 8.0 % 11/11/2024 10:31 AM EDT [facility] Basophils Relative 2.6(H) 0.0 - 1.0 % 11/11/2024 10:31 AM EDT [facility] nRBC 0 0 - 0 /100 WBC 11/11/2024 10:31 AM EDT [facility] Neutrophils Absolute 4,920 1,520 - 8,640 /uL 11/11/2024 10:31 AM EDT [facility] Lymphocytes Absolute 1,250 570 - 4,860 /uL 11/11/2024 10:31 AM EDT [facility] Monocytes Absolute 604 0 - 1,296 /uL 11/11/2024 10:31 AM EDT [facility] Eosinophils Absolute 142 0 - 864 /uL 11/11/2024 10:31 AM EDT [facility] Basophils Absolute 185(H) 0 - 108 /uL 11/11/2024 10:31 AM EDT [facility] Whole Blood 11/11/2024 9:13 AM EDT 11/11/2024 10:19 AM EDT [facility] - 11/11/2024 10:31 AM EDT Standing orders to be drawn: Every Sunday and before 9am and prior to patient taking morning medications. Liver Transplant Fax results to [phone] Call Critical results to [phone] us Harvey Domínguez III, MD LAB BLOOD ORDERABLE S Final Result [facility] [address] [place] [address], [facility] * (ABNORMAL) CBC (11/11/2024 9:13 AM EDT) WBC 7.1 3.8 - 10.8 10E3/uL 11/11/2024 10:31 AM EDT [facility] RBC 3.42(L) 4.20 - 5.80 10E6/uL 11/11/2024 10:31 AM EDT [facility] Hemoglobin 10.6(L) 13.2 - 17.1 g/dL 11/11/2024 10:31 AM EDT [facility] Hematocrit 31.3(L) 38.5 - 50.0 % 11/11/2024 10:31 AM EDT [facility] MCV 91.5 80.0 - 100.0 fL 11/11/2024 10:31 AM EDT [facility] MCH 31.0 27.0 - 33.0 pg 11/11/2024 10:31 AM EDT [facility] MCHC 33.8 32.0 - 36.0 g/dL 11/11/2024 10:31 AM EDT [facility] RDW 20.5(H) 11.0 - 15.0 % 11/11/2024 10:31 AM EDT [facility] Platelets 308 140 - 400 10E3/uL 11/11/2024 10:31 AM EDT [facility] MPV 6.1(L) 7.5 - 11.5 fL 11/11/2024 10:31 AM EDT [facility] Whole Blood 11/11/2024 9:13 AM EDT 11/11/2024 10:19 AM EDT Narrative [facility] - 11/11/2024 10:31 AM EDT Standing orders to be drawn: Every Sunday and before 9am and prior to patient taking morning medications. Liver Transplant Fax results to [phone] Call Critical results to [phone] us Harvey Domínguez III, MD LAB BLOOD ORDERABLE S Final Result [facility] [address] [place] [address], [facility] * (ABNORMAL) Renal Function Panel w/EGFR (11/11/2024 9:13 AM EDT) Sodium 141 133 - 146 mmol/L 11/11/2024 10:51 AM EDT [facility] Potassium 4.6 3.5 - 5.3 mmol/L 11/11/2024 10:51 AM EDT [facility] Chloride 108 98 - 110 mmol/L 11/11/2024 10:51 AM EDT [facility] CO2 24 21 - 33 mmol/L 11/11/2024 10:51 AM EDT [facility] Anion Gap 9 3 - 16 mmol/L 11/11/2024 10:51 AM EDT [facility] BUN 27(H) 7 - 25 mg/dL 11/11/2024 10:51 AM EDT [facility] Creatinine 1.14 0.60 - 1.30 mg/dL 11/11/2024 10:51 AM EDT [facility] Glucose 97 70 - 100 mg/dL 11/11/2024 10:51 AM EDT [facility] Calcium 8.6 8.6 - 10.3 mg/dL 11/11/2024 10:51 AM EDT [facility] Phosphorus 4.4 2.1 - 4.7 mg/dL 11/11/2024 10:51 AM EDT [facility] Albumin 3.8 3.5 - 5.7 g/dL 11/11/2024 10:51 AM EDT [facility] Osmolality, Calculated 297 278 - 305 mOsm/kg 11/11/2024 10:51 AM EDT [facility] EGFR 83 11/11/2024 10:51 AM EDT [facility] Comment:As of 2021, the estimated [...] morning medications. Liver Transplant Fax results to [phone] Call Critical results to [phone] DO NOT REPLACE RENAL PANEL or HEPATIC FUNCTION PANEL w/ CMP, BMP or HEPATIC PROFILE us Harvey Domínguez III, MD LAB BLOOD ORDERABLE S Final Result [facility] [address] [place] [address], [facility] * (ABNORMAL) Hepatic Function Panel (11/11/2024 9:13 AM EDT) Total Bilirubin 1.0 0.0 - 1.5 mg/dL 11/11/2024 10:51 AM EDT [facility] Bilirubin, Direct 0.39 0.00 - 0.40 mg/dL 11/11/2024 10:51 AM EDT [facility] AST 15 13 - 39 U/L 11/11/2024 10:51 AM EDT [facility] ALT 26 7 - 52 U/L 11/11/2024 10:51 AM EDT [facility] Alkaline Phosphatase 125 36 - 125 U/L 11/11/2024 10:51 AM EDT [facility] Total Protein 5.9(L) 6.4 - 8.9 g/dL 11/11/2024 10:51 AM EDT [facility] Albumin 3.8 3.5 - 5.7 g/dL 11/11/2024 10:51 AM EDT [facility] Bilirubin, Indirect 0.61 0.00 - 1.10 mg/dL 11/11/2024 10:51 AM EDT [facility] Plasma 11/11/2024 9:13 AM EDT 11/11/2024 10:19 AM EDT [facility] - 11/11/2024 10:51 AM EDT Standing orders to be drawn: Every Sunday and before 9am and prior to patient taking morning medications. Liver Transplant Fax results to [phone] Call Critical results to [phone] DO NOT REPLACE RENAL PANEL or HEPATIC FUNCTION PANEL w/ CMP, BMP or HEPATIC PROFILE Harvey Domínguez III, MD LAB BLOOD ORDERABLE S Final Result [facility] [address] * Tacrolimus level (11/11/2024 9:13 AM EDT) Tacrolimus (LC-MS) 10.4 3.0 - 15.0 ng/mL 11/11/2024 1:22 PM EDT [facility] Comment:Performed via liquid chromatography tandem mass spectrometry. Detection limit: 1 ng/mL. Individual target concentrations may vary due to target organ and time after transplant. This test has been developed and its performance characteristics determined by [facility] which is certified under the [...] AM EDT 11/11/2024 10:19 AM EDT Narrative [facility] - 11/11/2024 1:22 PM EDT Standing orders to be drawn: Every Sunday and Thursday before 9am and prior to patient taking morning medications. Liver Transplant Fax results to [phone] Call Critical results to [phone] us Harvey Domínguez III, MD LAB BLOOD ORDERABLE S Final Result [facility] [address] [place] [address], [facility] * (ABNORMAL) Differential (11/04/2024 8:46 AM EDT) Differential Comments See Note 11/05/2024 12:05 AM EDT [facility] Comment: _Platelets Appear Decreased _Platelet Morphology Normal Myelocytes Relative 3.0(H) 0.0 - 0.0 % 11/05/2024 12:05 AM EDT [facility] Neutrophils Relative 73.0 40.0 - 80.0 % 11/05/2024 12:05 AM EDT [facility] Lymphocytes Relative 17.0 15.0 - 45.0 % 11/05/2024 12:05 AM EDT [facility] Monocytes Relative 6.0 0.0 - 12.0 % 11/05/2024 12:05 AM EDT [facility] Eosinophils Relative 1.0 0.0 - 8.0 % 11/05/2024 12:05 AM EDT [facility] Basophils Relative 0.0 0.0 - 1.0 % 11/05/2024 12:05 AM EDT [facility] Neutrophils Absolute 5,256 1,520 - 8,640 /uL 11/05/2024 12:05 AM EDT [facility] Myelocytes Absolute 216(H) 0 - 0 /uL 11/05/2024 12:05 AM EDT [facility] Lymphocytes Absolute 1,224 570 - 4,860 /uL 11/05/2024 12:05 AM EDT [facility] Monocytes Absolute 432 0 - 1,296 /uL 11/05/2024 12:05 AM EDT [facility] Eosinophils Absolute 72 0 - 864 /uL 11/05/2024 12:05 AM EDT [facility] Basophils Absolute 0 0 - 108 /uL 11/05/2024 12:05 AM EDT [facility] PLT Morphology Platelet morphology appears normal 11/05/2024 12:05 AM EDT [facility] Whole Blood 11/04/2024 8:46 AM EDT 11/04/2024 11:01 PM EDT Narrative [facility] - 11/05/2024 12:05 AM EDT Standing orders to be drawn: Every Sunday and before 9am and prior to patient taking morning medications. Liver Transplant Fax results to [phone] Call Critical results to [phone] Manual WBC differential performed per review criteria approved by the medical device assembler. us Harvey Domínguez III, MD LAB BLOOD ORDERABLE S Final Result [facility] [address] [place] [address], [facility] * (ABNORMAL) CBC (11/04/2024 8:46 AM EDT) WBC 7.2 3.8 - 10.8 10E3/uL 11/05/2024 12:05 AM EDT [facility] RBC 3.17(L) 4.20 - 5.80 10E6/uL 11/05/2024 12:05 AM EDT [facility] Hemoglobin 9.7(L) 13.2 - 17.1 g/dL 11/05/2024 12:05 AM EDT [facility] Hematocrit 28.6(L) 38.5 - 50.0 % 11/05/2024 12:05 AM EDT [facility] MCV 90.2 80.0 - 100.0 fL 11/05/2024 12:05 AM EDT [facility] MCH 30.5 27.0 - 33.0 pg 11/05/2024 12:05 AM EDT [facility] MCHC 33.8 32.0 - 36.0 g/dL 11/05/2024 12:05 AM EDT [facility] RDW 17.9(H) 11.0 - 15.0 % 11/05/2024 12:05 AM EDT [facility] Platelets 137(L) 140 - 400 10E3/uL 11/05/2024 12:05 AM EDT [facility] Platelet Estimate Decreased 11/05/2024 12:05 AM EDT [facility] MPV 8.4 7.5 - 11.5 fL 11/05/2024 12:05 AM EDT [facility] Whole Blood 11/04/2024 8:46 AM EDT 11/04/2024 11:01 PM EDT Narrative [facility] - 11/05/2024 12:05 AM EDT Standing orders to be drawn: Every Sunday and before 9am and prior to patient taking morning medications. Liver Transplant Fax results to [phone] Call Critical results to [phone] Peripheral blood smear was scanned per review criteria approved by the laboratory medical device assembler. us Harvey Domínguez III, MD LAB BLOOD ORDERABLE S Final Result [facility] [address] [place] [address], [facility] * (ABNORMAL) Renal Function Panel w/EGFR (11/04/2024 8:46 AM EDT) Sodium 139 133 - 146 mmol/L 11/04/2024 10:06 AM EDT [facility] Potassium 3.8 3.5 - 5.3 mmol/L 11/04/2024 10:06 AM EDT [facility] Chloride 106 98 - 110 mmol/L 11/04/2024 10:06 AM EDT [facility] CO2 25 21 - 33 mmol/L 11/04/2024 10:06 AM EDT [facility] Anion Gap 8 3 - 16 mmol/L 11/04/2024 10:06 AM EDT [facility] BUN 34(H) 7 - 25 mg/dL 11/04/2024 10:06 AM EDT [facility] Creatinine 1.08 0.60 - 1.30 mg/dL 11/04/2024 10:06 AM EDT [facility] Glucose 92 70 - 100 mg/dL 11/04/2024 10:06 AM EDT [facility] Calcium 7.8(L) 8.6 - 10.3 mg/dL 11/04/2024 10:06 AM EDT [facility] Phosphorus 1.9(L) 2.1 - 4.7 mg/dL 11/04/2024 10:06 AM EDT [facility] Albumin 3.5 3.5 - 5.7 g/dL 11/04/2024 10:06 AM EDT [facility] Osmolality, Calculated 295 278 - 305 mOsm/kg 11/04/2024 10:06 AM EDT [facility] EGFR 88 11/04/2024 10:06 AM EDT [facility] Comment:As of 2021, the estimated [...] AM EDT 11/04/2024 9:32 AM EDT Narrative [facility] - 11/04/2024 10:06 AM EDT Standing orders to be drawn: Every Sunday and before 9am and prior to patient taking morning medications. Liver Transplant Fax results to [phone] Call Critical results to [phone] DO NOT REPLACE RENAL PANEL or HEPATIC FUNCTION PANEL w/ CMP, BMP or HEPATIC PROFILE us Harvey Domínguez III, MD LAB BLOOD ORDERABLE S Final Result [facility] [address] [place], [place] [address] * (ABNORMAL) Hepatic Function Panel (11/04/2024 8:46 AM EDT) Total Bilirubin 1.3 0.0 - 1.5 mg/dL 11/04/2024 10:06 AM EDT [facility] Bilirubin, Direct 0.57(H) 0.00 - 0.40 mg/dL 11/04/2024 10:06 AM EDT [facility] AST 20 13 - 39 U/L 11/04/2024 10:06 AM EDT [facility] ALT 67(H) 7 - 52 U/L 11/04/2024 10:06 AM EDT [facility] Alkaline Phosphatase 133(H) 36 - 125 U/L 11/04/2024 10:06 AM EDT [facility] Total Protein 5.4(L) 6.4 - 8.9 g/dL 11/04/2024 10:06 AM EDT [facility] Albumin 3.5 3.5 - 5.7 g/dL 11/04/2024 10:06 AM EDT [facility] Bilirubin, Indirect 0.73 0.00 - 1.10 mg/dL 11/04/2024 10:06 AM EDT [facility] Plasma 11/04/2024 8:46 AM EDT 11/04/2024 9:32 AM EDT Narrative [facility] - 11/04/2024 10:06 AM EDT Standing orders to be drawn: Every Sunday and before 9am and prior to patient taking morning medications. Liver Transplant Fax results to [phone] Call Critical results to [phone] DO NOT REPLACE RENAL PANEL or HEPATIC FUNCTION PANEL w/ CMP, BMP or HEPATIC PROFILE Harvey Domínguez III, MD LAB BLOOD ORDERABLE S Final Result [facility] [address] * Tacrolimus level (11/04/2024 8:46 AM EDT) Tacrolimus (LC-MS) 9.0 3.0 - 15.0 ng/mL 11/04/2024 3:14 PM EDT [facility] Comment:Performed via liquid chromatography tandem mass spectrometry. Detection limit: 1 ng/mL. Individual target concentrations may vary due to target organ and time after transplant. This test has been developed and its performance characteristics determined by [facility] which is certified under the [...] morning medications. Liver Transplant Fax results to [phone] Call Critical results to [phone] Harvey Domínguez III, MD LAB BLOOD ORDERABLE S Final Result [facility] [address] documented in this encounter Visit Diagnoses [...] as of this encounter Care Teams Auto Hiker Relationship Specialty Start Date End Date Enedina Mcguire NP [address] [place] [address] PCP - General Internal Medicine 10/05/24 Maureen Pantoja, ЮЛИЯ Txp Post Coordinator Transplant Hepatology 10/28/24 documented as of this encounter
--- OUTSIDE RECORDS SUMMARY | 2024-11-20 07:56 | XMS_ITS | Encounter Summary ---
Author Organization [facility] Address [address] [place] [address] Care Team Providers Care Voice Network Engineer Name Role Phone Enedina Mcguire NP Primary Care Provider + [phone] Maureen Pantoja RN Unavailable Unavail able Source [...] release of HIV test results or diagnoses. [id number] Health Encounter Details Date Type Department Care Team (Late st Contact Info) Description 11/04/2024 Results Follow-Up [facility] Liver Transplant at [address] [address] Maureen Pantoja, ЮЛИЯ Tacrolimus level, Hepatic Function [...] Recorded In the past 12 months has [employer], gas, oil, or water [employer] threatened to shut off services in your [...] Encounter [facility] ENDOSCOPY [address] [place] [address] Chris Orosco MD [address] [place] [address] 12/05/2024 8:01 AM EDT - 12/05/2024 8:31 AM EDT Surgery [facility] ENDOSCOPY [address] [place] [phone] Chris Orosco MD [address] [place] [address] EGD Scheduled Procedures Name Priority Associated Diagnoses [...] documented as of this encounter Care Teams Voice Network Engineer Relationship Specialty Start Date End Date Enedina Mcguire NP [address] [place] [address] PCP - General Internal Medicine 10/05/24 Maureen Pantoja, RN Txp Post Coordinator Transplant Hepatology 10/28/24 documented as of this encounter
--- OUTSIDE RECORDS SUMMARY | 2024-11-20 07:56 | XMS_ITS | Encounter Summary ---
Author Organization [facility] Address [address] [place] [address] Care Team Providers Care Instrument Lens Grinder Name Role Phone Enedina Mcguire NP Primary Care Provider [phone] Source Comments This information has been disclosed [...] release of HIV test results or diagnoses. [id number] Health Encounter Details Date Type Department Care Team (Late st Contact Info) Description 10/27/2024 Chart Note [facility] Kidney Transplant at [address] [place] [phone] Karen Rosen, RN I have verified that the donor serologies entered in [facility] match the donor Social History Tobacco [...] Recorded In the past 12 months has [employer], gas, oil, or water [employer] threatened to shut off services in your [...] verified that the donor serologies entered in [employer] match the donor serologies that are listed in [facility]. documented in this encounter Plan of Treatment Upcoming Encounters Date Type Department Care Team (Late st Contact Info) Description 12/05/2024 8:01 AM EDT Hospital Encounter [facility] ENDOSCOPY [address] [place] [address] Chris Orosco MD [address] [place] [address] 12/05/2024 8:01 AM EDT - 12/05/2024 8:31 AM EDT Surgery [facility] ENDOSCOPY [address] [place] [address] Chris Orosco MD [address] [place] [address] EGD Scheduled Procedures Name Priority Associated Diagnoses Date/Ti me EGD Cirrhosis of liver with ascites, unspecified hepatic cirrhosis type ([facility]) 12/05/2024 8:01 AM EDT documented as of this encounter Visit Diagnoses Not on filedocumented in this encounter Additional Health Concerns Infection Onset Date Last Indicated Resolved Time C. difficile 09/09/2024 09/09/2024 10/27/2024 8:30 AM EDT Assessment Noted Time PHQ-9 Depression Total Score: 17 025 11:00 AM EDT documented as of this encounter Care Teams Instrument Lens Grinder Relationship Specialty Start Date End Date Enedina Mcgiure NP [address] [place] [address] PCP - General Internal Medicine 10/05/24 documented as of this encounter
--- OUTSIDE RECORDS SUMMARY | 2024-11-20 07:56 | XMS_ITS | Encounter Summary ---
Author Organization [facility] Address [address] [place] [address] Care Team Providers Care Vulnerability Assessment Analyst Name Role Phone Enedina Mcguire NP Primary Care Provider + [phone] Maureen Pantoja RN Unavailable Unavail able Source [...] release of HIV test results or diagnoses. [id number] Health Encounter Details Date Type Department Care Team (Late st Contact Info) Description 11/07/2024 Chart Note [facility] Liver Transplant at [address] [place] [phone] Marlene Ro MA FK Pending Social History [...] Recorded In the past 12 months has [employer], gas, oil, or water [employer] threatened to shut off services in your [...] Encounter [facility] ENDOSCOPY [address] [place] [address] Chris Orosco MD [address] [place] [address] 12/05/2024 8:01 AM EDT - 12/05/2024 8:31 AM EDT Surgery [facility] ENDOSCOPY [address] [place] [address] Chris Orosco MD [address] [place] [phone] EGD Scheduled Procedures Name Priority Associated Diagnoses Date/Ti me EGD Cirrhosis of liver with ascites, unspecified hepatic cirrhosis type ([facility]) 12/05/2024 8:01 AM EDT documented [...] 9.9 6 - 15 ng/mL Whole Blood [facility] Provider MD LAB BLOOD ORDERABLES Denisse l Result * (ABNORMAL) Renal Function Panel w/o EGFR (11/06/2024 8:36 AM EDT) [facility] Glucose 108 mg/dL BUN 35(A) 4 - [...] 5.0 g/dL Blood Narrative Resulting Agency Comment [facility] Provider MD LAB BLOOD ORDERABLES Denisse l Result * (ABNORMAL) CBC and differential (11/06/2024 8:36 AM EDT) [facility] Hemoglobin 9.3(A) 13.5 - 17.5 g/dL Hematocrit [...] 7.5 10^3/mL Blood Narrative Resulting Agency Comment [facility] Historical Provider LAB BLOOD ORDERABLES Denisse l Result * (ABNORMAL) Hepatic Function Panel (11/06/2024 8:36 AM EDT) Bilirubin, Direct 0.7 Bilirubin, Indirect 0.2 Alkaline Phosphatase 142 U/L ALT 59 U/L AST 24 U/L Total Bilirubin 0.9 0.1 - 1.4 mg/dL Total Protein 5.4(A) 6.4 - 8.2 g/dL Plasma Narrative Resulting Agency Comment [facility] Historical Provider LAB BLOOD ORDERABLES Denisse l Result documented in this encounter Visit Diagnoses Not on filedocumented in this encounter Additional Health Concerns Infection Onset Date Last Indicated 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
--- OUTSIDE RECORDS SUMMARY | 2024-11-20 07:56 | XMS_ITS | Encounter Summary ---
Author Organization [facility] Address [address] [place] [address] Care Team Providers Care Die Mounter Name Role Phone Enedina Mcguire NP Primary Care Provider + [phone] Maureen Pantoja RN Unavailable Unavail able Source [...] release of HIV test results or diagnoses. [id number] Reason for Visit * Reason Comments Medication Refill Refill Request 1st A ttempt Encounter Details Date Type Department Care Team (Late st Contact Info) Description 10/20/2024 Refill [facility] Gastroenterology at [facility] Office [address] [place] [phone] Gerri Peterson MD [address] [place] [address] Social History Tobacco Use Types Packs/Day Years Used Date Smoking Tobacco: Former Cigarettes Smokeless Tobacco: Current Alcohol Use Standard Drinks/Week Comments Yes 0 (1 standard drink = 0.6 oz pure alcohol) History of alcohol abuse, reports no use in 3 week- typically endorses use as 4 glasses of wine a days Utilities Answer Date Recorded In the past 12 months has [facility], gas, oil, or water [employer] threatened to shut off services in [...] need filled today. PHARMACY & PHONE #: [facility] [address] [place] [address] - [address] [address] DATE OF LAST APPT: 09/02/2024 Gerri Peterson MD DATE OF NEXT APPT: 12/02/2024 GI/LIVER FELLOW 4 documented in this encounter Plan of Treatment Upcoming Encounters Date Type Department Care Team (Late st Contact Info) Description 12/05/2024 8:01 AM EDT Hospital Encounter [facility] ENDOSCOPY [address] [place] [address] Chris Orosco MD [address] [place] [phone] 12/05/2024 8:01 AM EDT - 12/05/2024 8:31 AM EDT Surgery [facility] ENDOSCOPY [address] [place] [phone] Chris Orosco MD [address] [place] [phone] EGD Scheduled Procedures Name Priority Associated Diagnoses [...] documented as of this encounter Care Teams Die Mounter Relationship Specialty Start Date End Date Enedina Mcguire NP [address] [place] [address] PCP - General Internal Medicine 10/05/24 Maureen Pantoja, RN Txp Post Coordinator Transplant Hepatology 10/28/24 documented as of this encounter
--- OUTSIDE RECORDS SUMMARY | 2024-11-20 07:56 | XMS_ITS | Encounter Summary ---
Author Organization [facility] Address [address] [place] [address] Care Team Providers Care Process Manager Name Role Phone Enedina Mcguire NP Primary Care Provider + [phone] Maureen Pantoja RN Unavailable Unavail able Source [...] release of HIV test results or diagnoses. [id number] Health Encounter Details Date Type Department Care Team (Late st Contact Info) Description 10/27/2024 Chart Note [facility] Liver Transplant at [address] [place] [phone] Crista Power, RN I introduced myself as inpatient liver/kidney delivery coordinator, Social History Tobacco Use Types Packs/Day Years Used Date Smoking Tobacco: Former Cigarettes Smokeless Tobacco: Current Alcohol Use Standard Drinks/Week Comments Yes 0 (1 standard drink = 0.6 oz pure alcohol) History of alcohol abuse, reports no use in 3 week- typically endorses use as 4 glasses of wine a days Utilities Answer Date Recorded In the past 12 months has [employer], gas, oil, or water [employer] threatened to shut off services in your [...] does not drink 10/29/2024 10:02 PM EDT Vandaan Vilchis RN Q3: How often do you have six or more drinks on one occasion? Never 10/29/2024 10:02 PM EDT Vandana Vilchis RN documented as of this encounter Progress Notes * Crista Power RN - 10/27/2024 6:59 AM EDT I introduced myself as inpatient liver/kidney delivery coordinator, explained role and provided my contact [...] Encounter [facility] ENDOSCOPY [address] [place] [address] Chris Orosco MD [address] [place] [phone] 12/05/2024 8:01 AM EDT - 12/05/2024 8:31 AM EDT Surgery [facility] ENDOSCOPY [address] [place] [address] Chris Orosco MD [address] [place] [phone] EGD Scheduled Procedures Name Priority Associated Diagnoses [...] documented as of this encounter Care Teams Process Manager Relationship Specialty Start Date End Date Enedina Mcguire NP [address] [place] [address] PCP - General Internal Medicine 10/05/24 Maureen Pantoja, ЮЛИЯ Txp Post Coordinator Transplant Hepatology 10/28/24 documented as of this encounter
--- OUTSIDE RECORDS SUMMARY | 2024-11-20 07:58 | XMS_ITS | Encounter Summary ---
Author Organization [facility] Address [address] [place] [address] Care Team Providers Care Yardage Tufting Machine Operator Name Role Phone Enedina Mcguire NP Primary Care Provider + [phone] Maureen Pantoja RN Unavailable Unavail able Source [...] release of HIV test results or diagnoses. [id number] Health Encounter Details Date Type Department Care Team (Late st Contact Info) Description 10/29/2024 Education Chart Note [facility] Liver Transplant at [address] [place] [phone] Crista Power, RN Social History Tobacco [...] Recorded In the past 12 months has [employer], gas, oil, or water [employer] threatened to shut off services in your [...] of Infection/Rejection [x] 5. When to call curriculum and assessment coordinator [x] 6. Outpatient follow up including [...] times 0900/2100. Julien Anderson has to use [facility]. Meds are getting delivered 10/31/24. documented in this encounter Plan of Treatment Upcoming Encounters Date Type Department Care Team (Late st Contact Info) Description 12/05/2024 8:01 AM EDT Hospital Encounter [facility] ENDOSCOPY [address] [place] [address] Chris Orosco MD [address] [place] [address] 12/05/2024 8:01 AM EDT - 12/05/2024 8:31 AM EDT Surgery [facility] ENDOSCOPY [address] [place] [address] Chris Orosco MD [address] [place] [phone] EGD Scheduled Procedures Name Priority Associated Diagnoses Date/Ti me EGD Cirrhosis of liver with ascites, unspecified hepatic cirrhosis type ([facility]) 12/05/2024 8:01 AM EDT documented as of this encounter Visit Diagnoses Not on filedocumented in this encounter Additional Health Concerns Assessment Noted Time PHQ-9 Depression Total Score: 17 025 11:00 AM EDT documented as of this encounter Care Teams Yardage Tufting Machine Operator Relationship Specialty Start Date End Date Enedina Mcguire NP [address] [place] [id number] PCP - General Internal Medicine 10/05/24 Maureen Pantoja, ЮЛИЯ Txp Post Coordinator Transplant Hepatology 10/28/24 documented as of this encounter
--- OUTSIDE RECORDS SUMMARY | 2024-11-20 07:58 | XMS_ITS | Encounter Summary ---
Author Organization [facility] Address [address] [place] [address] Care Team Providers Care Precast Molder Name Role Phone Enedina Mcguire NP Primary Care Provider + [phone] Maureen Pantoja RN Unavailable Unavail able Source [...] release of HIV test results or diagnoses. [id number] Health Encounter Details Date Type Department Care Team (Late st Contact Info) Description 11/03/2024 Telephone [facility] Liver Transplant at [address] [place] [phone] Marisela Martinez MA Social History Tobacco [...] Recorded In the past 12 months has [employer], gas, oil, or water [employer] threatened to shut off services in your [...] he will have his labs drawn at [facility] prior to clinic on 11/03. documented in this encounter Plan of Treatment Upcoming Encounters Date Type Department Care Team (Late st Contact Info) Description 12/05/2024 8:01 AM EDT Hospital Encounter [facility] ENDOSCOPY [address] [place] [address] Chris Orosco MD [address] [place] [phone] 12/05/2024 8:01 AM EDT - 12/05/2024 8:31 AM EDT Surgery [facility] ENDOSCOPY [address] [place] [address] Chris Orosco MD [address] [place] [phone] EGD Scheduled Procedures Name Priority Associated Diagnoses Date/Ti me EGD Cirrhosis of liver with ascites, unspecified hepatic cirrhosis type ([facility]) 12/05/2024 8:01 AM EDT documented as of this encounter Visit Diagnoses Not on filedocumented in this encounter Additional Health Concerns 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
--- OUTSIDE RECORDS SUMMARY | 2024-11-20 07:58 | XMS_ITS | Encounter Summary ---
Author Organization [facility] Address [address] [place] [address] Care Team Providers Care Mine Safety Engineer Name Role Phone Enedina Mcguire NP Primary Care Provider + [phone] Maureen Pantoja RN Unavailable Unavail able Source [...] release of HIV test results or diagnoses. [id number] Health Encounter Details Date Type Department Care Team (Late st Contact Info) Description 11/03/2024 Chart Note [facility] Liver Transplant at [address] [place] [phone] Hillary Fernandes, TainD Liver Transplant Pharmacy Discharge Note Social History [...] In the past 12 months has [employer], gas, oil, or water [employer] threatened to shut off services in your [...] day. blood-glucose meter (TRUE METRIX GLUCOSE METER) [facility] Use to test blood sugar up to [...] = 12 units lancets (ACCU-CHEK SOFTCLIX LANCETS) [facility] Use to test blood sugar up to [...] a day. naloxone (NARCAN) 4 mg/actuation [place] Apply 1 spray in one nostril if [...] Solid Organ Transplant Clinical Specialist Contact via [employer] Preferred documented in this encounter Plan of Treatment Upcoming Encounters Date Type Department Care Team (Late st Contact Info) Description 12/05/2024 8:01 AM EDT Hospital Encounter [facility] ENDOSCOPY [address] [place] [phone] Chris Orosco MD [address] [place] [phone] 12/05/2024 8:01 AM EDT - 12/05/2024 8:31 AM EDT Surgery [facility] ENDOSCOPY [address] [place] [phone] Chris Orosco MD [address] [place] [phone] EGD Scheduled Procedures Name Priority Associated Diagnoses [...] documented as of this encounter Care Teams Mine Safety Engineer Relationship Specialty Start Date End Date Enedina Mcguire NP [address] [place] [address] PCP - General Internal Medicine 10/05/24 Maureen Pantoja, RN Txp Post Coordinator Transplant Hepatology 10/28/24 documented as of this encounter
--- OUTSIDE RECORDS SUMMARY | 2024-11-20 07:58 | XMS_ITS | Encounter Summary ---
Author Organization [facility] Address [facility] [place] [address] Care Team Providers Care Museum Exhibit Designer Name Role Phone Enedina Mcguire NP Primary Care Provider + [phone] Maureen Pantoja RN Unavailable Unavail able Source [...] release of HIV test results or diagnoses. [id number] Health Encounter Details Date Type Department Care [...] Recorded In the past 12 months has [employer], [employer], oil, or water [employer] threatened to shut off services in [...] 12/05/2024 8:01 AM EDT Hospital Encounter [facility] ENDOSCOPY [address] [place] [phone] Chris Orosco MD [address] [place] [phone] 12/05/2024 8:01 AM EDT - 12/05/2024 8:31 AM EDT Surgery [facility] ENDOSCOPY [address] [place] [phone] Chris Orosco MD [address] [place] [phone] EGD Scheduled Procedures Name Priority Associated Diagnoses Date/Ti me EGD Cirrhosis of liver with ascites, unspecified hepatic cirrhosis type ([facility]) 12/05/2024 8:01 AM EDT documented as of this encounter Visit Diagnoses Not on filedocumented in this encounter Additional Health Concerns Assessment Noted Time PHQ-9 Depression Total Score: 17 025 11:00 AM EDT documented as of this encounter Care Teams Museum Exhibit Designer Relationship Specialty Start Date End Date Enedina Mcguire NP [address] [place] [address] PCP - General Internal Medicine 10/05/24 Maureen Pantoja, ЮЛИЯ Txp Post Coordinator Transplant Hepatology 10/28/24 documented as of this encounter
--- OUTSIDE RECORDS SUMMARY | 2024-11-20 07:58 | XMS_ITS | Encounter Summary ---
Author Organization [facility] Address [address] [place] [address] Care Team Providers Care Data Integration Developer Name Role Phone Enedina Mcguire NP Primary Care Provider [phone] Source Comments This information has been disclosed [...] release of HIV test results or diagnoses. [id number] Health Encounter Details Date Type Department Care Team (Late st Contact Info) Description 10/17/[address] [facility] Discharge Pharmacy [address] [place] [phone] Qu, Ridge, RPh Social History Tobacco [...] Recorded In the past 12 months has [employer], gas, oil, or water company threatened to [...] this encounter Progress Notes * Ridge Menjivar, [facility] - 10/17/2024 9:47 AM EDT Julien [...] member, friend, or other person (including a photographic intelligence officer). The at-risk individual reports no known [...] Hospital Encounter [facility] ENDOSCOPY [address] [place] [phone] Chris Orosco MD [address] [place] [phone] 12/05/2024 8:01 AM EDT - 12/05/2024 8:31 AM EDT Surgery [facility] ENDOSCOPY [address] [place] [phone] Chris Orosco MD [address] [place] [phone] EGD Scheduled Procedures Name Priority Associated Diagnoses [...] documented as of this encounter Care Teams Data Integration Developer Relationship Specialty Start Date End Date Enedina Mcguire NP [address] [place] [address] PCP - General Internal Medicine 10/05/24 documented as of this encounter
--- OUTSIDE RECORDS SUMMARY | 2024-11-20 08:00 | XMS_ITS | Clinical Summary ---
Author Organization [facility] Address [facility] [place] [address] Care Team Providers Care Robotic Machine Operator Name Role Phone Enedina Mcguire NP Primary Care Provider + [phone] Maureen Pantoja RN Unavailable Unavail able Source [...] therelease of HIV test results or diagnoses. [id number] Allergies Active Allergy Reactions Criticality [...] EDT 025 Active naloxone (NARCAN) 4 mg/actuation [place] Apply 1 spray in one nostril [...] Active blood-glucose meter (TRUE METRIX GLUCOSE METER) [facility] Use to test blood sugar up to [...] by mouth daily. 120 tablet 2 Active folic acid (FOLVITE) 1 MG tablet Take 1 tablet (1 mg total) by mouth daily. 2024 Discontinued(S top Taking at Discharge) pantoprazole (PROTONIX) 40 MG tablet Take 1 tablet (40 mg total) by mouth every morning before breakfast. 2024 Discontinued(S top Taking at Discharge) zinc sulfate (ZINCATE) 50 mg zinc (220 mg) capsule Take 1 capsule (220 mg total) by mouth daily. 60 capsule 08/20/19 1:23 PM EDT 2024 Discontinued(S top Taking at Discharge) potassium chloride (KLOR-CON M20) 20 MEQ tabletIndicati ons:Hypokalemi a Take 2 tablets (40 mEq total) by mouth daily. 60 tablet 2 025 2024 Discontinued(S top Taking at Discharge) thiamine HCl (VITAMIN B-1) 100 MG tablet [...] tablet 10/18/19 25 10:24 AM EDT 2024 Discontinued(R efill / Reorder) midodrine (PROAMATINE) 10 MG tablet Take 1 [...] mouth 2 times a day. 60 capsule 2024 Discontinued(S top Taking at Discharge) apixaban [...] tablet 2 11/03/19 10:20 AM EDT 025 2024 Discontinued tacrolimus [...] Discontinued(S top Taking at Discharge) DEXCOM G7 [employer] HEMMER Misc Use reader as directed. 1 each [...] day. 28 tablet 11/03/19 3:06 PM EDT 025 2024 Discontinued(T herapy Completed / No Longer Needed) HYDROmorphone (DILAUDID) 2 MG tabletIndicati ons:Abdominal pain, unspecified abdominal location Take 1 tablet (2 mg total) by mouth every 6 hours as needed for up to 7 days. 28 tablet 025 2024 Discontinued(R efill / Reorder) HYDROmorphone (DILAUDID) 2 MG tabletIndicati ons:Abdominal pain, unspecified abdominal location Take 1 tablet (2 mg total) by mouth every 6 hours as needed for up to 7 days. 28 tablet 025 2024 Active Problems Problem Noted Date Diagnosed Date [...] Encounters Date Type Department Care Team Description 11/18/2024 Telephone [facility] Liver Transplant at [address] [place] [address] Maureen Pantoja, ЮЛИЯ Results 11/18/2024 Chart Note [facility] Liver Transplant at [address] [place] [address] Marlene Ro MA 11/11/2024 10:30 AM EDT Office Visit [facility] Liver Transplant at [address] [place] [address] [place] [address] Unknown, Attending Provider Jessica Colon Kidney replaced by transplant (Primary Dx); Hypervolemia associated with renal insufficiency 11/11/2024 10:00 AM EDT Office Visit [facility] Liver Transplant at [address] [place] [address] PachecoCosmo MD Quillin, Ralph Cutler III, MD Encounter for therapeutic drug monitoring (Primary Dx); Abdominal pain, unspecified abdominal location 11/11/2024 9:30 AM EDT Office Visit [facility] Psychiatry Transplant at [address] [address] Lizeth Warren PsyD PTSD (post-traumatic stress disorder) (Primary Dx) 11/11/2024 8:50 AM EDT [facility] [address] [place] [address] Harvey Domínguez III, MD Liver replaced by transplant ([facility]); Immunosuppressive management encounter following liver transplant ([facility]-H[facility]); Kidney transplant recipient 11/11/2024 Telephone [facility] Liver Transplant at [address] [address] Maureen Pantoja, ЮЛИЯ Results 11/10/2024 Orders Only [facility] Liver Transplant at [address] [address] Maureen Pantoja, ЮЛИЯ Liver transplant recipient ([facility]) (Primary Dx); Kidney transplant recipient; Immunosuppressive management encounter following liver transplant ([facility]) 11/10/2024 Orders Only [facility] Liver Transplant at [address] [address] Maureen Pantoja, ЮЛИЯ 11/09/2024 Telephone [facility] PATIENT SERVICES [address] [place] [address] Unknown, Attending Provider After Hours Call (Passing blood through stool states started this morning has had 3 bloody bowel movements kidney and liver txp done 2 weeks ago) 11/07/2024 Telephone [facility] Liver Transplant at [address] [phone] Marlene Ro MA 11/07/2024 Telephone [facility] Liver Transplant at [address] [place] [address] Maureen Pantoaj, RN Results 11/07/2024 Chart Note [facility] Liver Transplant at [address] [address] Marlene Ro MA FK Pending 11/04/2024 10:10 AM EDT Office Visit [facility] Liver Transplant at [address] [address] Leisa Juarez MD Kidney transplant recipient (Primary Dx); Diarrhea of presumed infectious origin; Hypomagnesemia; Hypervolemia, unspecified hypervolemia type; Liver transplant recipient (CMS-HCC); Other hypervolemia; Hyperparathyroidism (CMS-HCC); Nausea and vomiting, unspecified vomiting type 11/04/2024 8:40 AM EDT Office Visit [facility] Liver Transplant at [address] [address] Cosmo Pacheco MD Liver transplant recipient (CMS-HCC) (Primary Dx); Alcoholic cirrhosis of liver with ascites (CMS-HCC); Kidney transplant recipient; Acute kidney injury superimposed on CKD (CMS-HCC); CKD (chronic kidney disease) stage 4, GFR 15-29 ml/min (CMS-HCC); Immunosuppressive management encounter following liver transplant (CMS-HCC); Abdominal pain, unspecified abdominal location 11/04/2024 Telephone [facility] Liver Transplant at [address] [address] Maureen Pantoja, RN Results 11/04/2024 Results Follow-Up [facility] Liver Transplant at [address] [place] [address] Maureen Pantoja, RN Tacrolimus level, Hepatic Function Panel, Renal Function Panel w/EGFR, Additional followed-up results: 3 11/04/2024 Social Work [facility] Liver Transplant at [address] [place] [phone] Kaylin Willard MSW 11/04/2024 Nutrition [facility] Kidney Transplant at [address] [place] [address] Ben Weiss, DMITRY 11/03/2024 Chart Note [facility] Liver Transplant at [address] [place] [address] Hillary Fernandes, [facility] Liver Transplant Pharmacy Discharge Note 11/03/2024 Telephone [facility] Liver Transplant at [address] [phone] Marisela Martinez MA 10/31/2024 Orders Only [facility] Liver Transplant at [address] [phone] Harvey Domínguez III, MD Liver replaced by transplant ([facility]) (Primary Dx); Immunosuppressive management encounter following liver transplant ([facility]) 10/29/2024 Travel 10/29/2024 Education Chart Note [facility] Liver Transplant at [address] [address] Crista Power RN 10/27/2024 2:34 AM EDT Anesthesia Event [facility] PERIOP [address] [place] [address] Rocky Manning MD Kopel, Lior, MD 10/27/2024 2:00 AM EDT - 10/27/2024 6:54 AM EDT Surgery [facility] [address] [place] [address] Harvey Domínguez III, MD Donor Kidney Transplant , Back Bench Preparation Donor Kidney, Baseline Kidney transplant biopsy , Insertion of Indwelling Stent , Removal of Perihepatic packing 10/27/2024 Pharmacy Services [facility] Discharge Pharmacy [address] [place] [address] Opal Cox, Lissett 10/27/2024 Chart Note [facility] Kidney Transplant at [address] [place] [address] Karen Rosen, RN I have verified that the donor serologies entered in Epic match the donor 10/27/2024 Chart Note [facility] Liver Transplant at [address] [place] [address] Crista Power, RN I introduced myself as inpatient liver/kidney operations manager/coordinator, 10/27/2024 Orders Only [facility] Pancreas Transplant at [facility] [address] [place] [address] Abdulkaidr Gaspar MD 10/26/2024 Chart Note [facility] Kidney Transplant at [address] [place] [address] Geri Vasquez RN 10/26/2024 Chart Note [facility] Liver Transplant at [address] [place] [address] Geri Vasquez RN 10/25/2024 10:54 PM EDT Anesthesia Event [facility] [place] [address] Eber Quinones MD Edwards, Anna, MD 10/25/2024 10:30 PM EDT - 10/26/2024 6:12 AM EDT Surgery [facility] [address] [facility] [address] Harvey Domínguez III, MD LIVER TRANSPLANT 10/25/2024 8:46 PM EDT - 11/02/2024 6:23 PM EDT Hospital Encounter [address] [place] [address] Harvey Domínguez III, MD Haugen, Christine, MD Acute kidney injury superimposed on CKD ([facility]) (Primary Dx); Prophylactic antibiotic; Prolonged QT interval; Immunosuppression (CMS-HCC); Abdominal pain, unspecified abdominal location Discharge Disposition: Home or Self Care WITHOUT Home Care Services 10/25/2024 Travel 10/25/2024 Telephone [facility] Liver Transplant at [address] [place] [address] Krissy Crowell, ЮЛИЯ DDLT patient instructions 10/25/2024 Telephone [facility] Liver Transplant at [address] [address] Krissy Crowell, ЮЛИЯ 10/24/2024 Telephone [facility] Renal Hypertension Clinic at [address] [place] [phone] Joann Davies MA Appointment 10/22/2024 Telephone [facility] Liver Transplant at [address] [place] [address] Mary Butler RN 10/22/2024 Chart Note [facility] Kidney Transplant at [address] [place] [phone] Gladis Rainey RN Received most recent eGFR from today with result of 21. Pt meets CKD 10/22/2024 Chart Note [facility] Liver Transplant at [address] [place] [phone] Faraz Carballo, ЮЛИЯ 2nd ABO verified for [facility] listing at the request of JOSE G Butler. 10/22/2024 Telephone [facility] Psychiatry Transplant at [address] [place] [phone] Lizeth Warren PsyD 10/22/2024 Chart Note [facility] [address] [place] [address] Aaron Gonzalez MD Candidacy for a simultaneous liver-kidney transplant 10/22/2024 Status Update [facility] Kidney Transplant at [address] [place] [address] Aaron Gonzalez MD 10/22/2024 Chart Note [facility] Liver Transplant at [address] [place] [address] Mary Butler, RN UNOS VERIFICATION CHECK FORM 10/22/2024 Orders Only [facility] Pancreas Transplant at [facility] [address] [place] [address] Abdulkadir Gaspar MD 10/22/2024 Chart Note [facility] Liver Transplant at [address] [place] [address] Mary Butler, RN 10/21/2024 Telephone [facility] Gastroenterology at [facility] [address] [facility] [address] [place] [address] Gerri Peterson MD Medication Management (Requesting RX for New Medication ) 10/21/2024 Refill [facility] Gastroenterology at [facility] [address] [facility] [address] [place] [address] Gerri Peterson MD 10/20/2024 9:10 AM EDT - 10/20/2024 11:59 PM EDT Hospital Encounter [facility] Radiology [address] [place] [address] System, Provider Not In Discharge Disposition: Home or Self Care WITHOUT Home Care Services 10/20/2024 9:10 AM EDT - 10/20/2024 11:59 PM EDT Hospital Encounter [facility] Radiology [address] [place] [address] System, Provider Not In Discharge Disposition: Home or Self Care WITHOUT Home Care Services 10/20/2024 9:10 AM EDT - 10/20/2024 11:59 PM EDT Hospital Encounter [facility] Radiology [address] [place] [address] System, Provider Not In Discharge Disposition: Home or Self Care WITHOUT Home Care Services 10/20/2024 9:10 AM EDT - 10/20/2024 11:59 PM EDT Hospital Encounter [facility] Radiology [address] [place] [address] System, Provider Not In Discharge Disposition: Home or Self Care WITHOUT Home Care Services 10/20/2024 9:10 AM EDT - 10/20/2024 11:59 PM EDT Hospital Encounter [facility] Radiology [address] [place] [address] System, Provider Not In Discharge Disposition: Home or Self Care WITHOUT Home Care Services 10/20/2024 9:10 AM EDT - 10/20/2024 11:59 PM EDT Hospital Encounter [facility] Radiology [address] [place] [address] System, Provider Not In Discharge Disposition: Home or Self Care WITHOUT Home Care Services 10/20/2024 9:10 AM EDT - 10/20/2024 11:59 PM EDT Hospital Encounter [facility] Radiology [address] [place] [address] System, Provider Not In Discharge Disposition: Home or Self Care WITHOUT Home Care Services 10/20/2024 Orders Only [facility] Pancreas Transplant at [facility] [address] [place] [address] Abdulkadir Gaspar MD 10/20/2024 Telephone [facility] Gastroenterology at [facility] [address] [facility] [address] [place] [address] Gerri Peterson MD Prescription Issue (RX Clarification Request ) 10/20/2024 Refill [facility] Gastroenterology at [facility] [place] Office [address] [facility] [address] [place] [phone] Gerri Peterson MD 10/20/2024 Telephone [facility] Liver Transplant at [address] [place] [address] Mary Butler, ЮЛИЯ 10/17/2024 Chart Note [facility] Kidney Transplant at [address] [place] [address] Anny Cote, RN Copy of HLA report scanned into the media tab. Will follow up on GFR 10/17/2024 Chart Note [facility] Kidney Transplant at [address] [place] [address] Anny Cote RN 10/17/2024 Pharmacy Services [facility] Discharge Pharmacy [address] [place] [phone] Ridge Menjivar jaymie 10/14/2024 8:42 AM EDT - 10/14/2024 9:27 AM EDT Surgery [facility] Cardiac Molder Apprentice [address] [place] [phone] Irving Matta MD Left Heart Cath 10/14/2024 Chart Note [facility] Kidney Transplant at [address] [place] [phone] Dean Robles formerly [facility] [address] 10/10/2024 12:01 PM EDT Anesthesia Event [facility] ENDOSCOPY [address] [place] [phone] Cady Bhat MD Nguyen, Quinn, MD 10/10/2024 10:36 AM EDT - 10/10/2024 11:06 AM EDT Surgery [facility] ENDOSCOPY [address] [place] [address] Lino Soto MD EGD 10/09/2024 Social Work [facility] Liver Transplant at [address] [place] [address] Kaylin Willard MSW 10/09/2024 Chart Note [facility] Kidney Transplant at [address] [place] [address] Dean Robles [facility] [address] call from [facility] fx [phone] 10/09/2024 Chart Note [facility] Kidney Transplant at [address] [place] [address] Dean Robles [facility] [address] 10/07/2024 Chart Note [facility] Liver Transplant at [address] [place] [address] Mary Butler, RN Spoke with Blair [place] today for evaluation for a combined liver and 10/07/2024 Chart Note [facility] Kidney Transplant at [address] [place] [address] Anny Cote, RN Received notice of in house evaluation. Message to nephrology 10/07/2024 Chart Note [facility] Kidney Transplant at [address] [place] [address] Chey Nicole MA This MA received new referral for PT. Will FU once financially cleared. 10/07/2024 Chart Note [facility] Kidney Transplant at [address] [place] [address] Anny Cote, RN Simultaneous Liver-Kidney Transplant Referral 10/06/2024 Travel 10/05/2024 11:12 PM EDT - 10/17/2024 10:29 AM EDT Hospital Encounter [facility] 8E [address] [place] [address] Gómez Blanchard MD Wood, Sharice N, MD [...] Care WITHOUT Home Care Services 10/05/2024 Telephone [facility] PATIENT [facility] [address] [place], [place] [phone] Unknown, Attending Provider After Hours Call 10/01/2024 Telephone [facility] Liver Transplant at [address] [place] [facility] [address] [place] [address] Armand Salinas RN 09/30/2024 Social Work [facility] Liver Transplant at [address] [facility] [address] [place] [address] Kaylin Willard MSW 09/29/2024 11:00 AM EDT Office Visit [facility] Psychiatry Transplant at [address] [facility] [address] [place] [address] Lizeth Warren PsyD PTSD (post-traumatic stress disorder) (Primary Dx); Alcohol use disorder 09/26/2024 Abstract [facility] Gastroenterology at [facility] [address] [facility] [address] [place] [phone] Gerri Peterson MD 09/25/2024 11:25 AM EDT [facility] [address] [place] [address] Gerri Peterson MD Cirrhosis of liver with ascites, unspecified hepatic cirrhosis type (CMS-HCC); Pre-transplant evaluation for chronic liver disease; Alcoholic cirrhosis of liver without ascites (CMS-HCC) 09/25/2024 Social Work [facility] Liver Transplant at [address] [place] [address] Kaylin Willard MSW 09/25/2024 Telephone [facility] Interventional Radiology [address] [place] [phone] Thad De Leon Appointment 09/25/2024 Orders Only [facility] Liver Transplant at [address] [place] [address] Mary Butler, ЮЛИЯ Pre-transplant evaluation for chronic liver disease (Primary Dx); Alcoholic cirrhosis of liver without ascites (CMS-HCC) 09/24/2024 Orders Only [facility] Gastroenterology at [address] [place] [address] Gerri Peterson MD Cirrhosis of liver with ascites, unspecified hepatic cirrhosis type (CMS-HCC) (Primary Dx) 09/24/2024 Orders Only [facility] Gastroenterology at [facility] [address] [facility] [address] [place] [address] Gerri Peterson MD Cirrhosis of liver with ascites, unspecified hepatic cirrhosis type (CMS-HCC) (Primary Dx) 09/23/2024 Telephone [facility] Gastroenterology at [facility] [address] [facility] [address] [place] [address] Gerri Peterson MD Orders (Order Clarification Request/) 09/22/2024 Telephone [facility] Gastroenterology at [facility] [address] [facility] [address] [place] [address] Gerri Peterson MD Orders (Order Clarification Request ) 09/17/2024 Telephone [facility] Liver Transplant at [address] [facility] [place] [address] Kaylin Willard, [facility] 09/17/2024 Abstract [facility] Gastroenterology at [facility] [address] [facility] [address] [place] [address] Gerri Peterson MD 09/17/2024 Telephone [facility] Liver Transplant at [address] [place] [address] Kaylin Willard, [facility] 09/16/2024 Telephone [facility] Gastroenterology at [facility] [address] [facility] [address] [place] [address] Gerri Peterson MD Medical Management (Plan of Care Inquiry/Question ) 09/10/2024 Telephone [facility] Liver Transplant at [address] [facility] [place] [address] Kaylin Willard, [facility] 09/05/2024 Orders Only [facility] Gastroenterology at [facility] [address] [facility] [address] [place] [address] Chris Orosco MD Cirrhosis of liver with ascites, unspecified hepatic cirrhosis type (CMS-HCC) (Primary Dx) 09/05/2024 Travel 09/03/2024 4:56 AM EDT - 09/09/2024 6:25 PM EDT Hospital Encounter [facility] [address] [facility] [place] [address] Ana Maria Ramey MD Zackary, Joseph, MD Morgenlander, Adam M, MD Liebler, Hillary, MD Stickles, Flaquita Andre, MD Alcoholic cirrhosis of liver with ascites (CMS-HCC) (Primary Dx); Abdominal pain, unspecified abdominal location; NADIYA (acute kidney injury) (CMS-HCC) [N17.9] Discharge Disposition: Home or Self Care WITHOUT Home Care Services 09/03/2024 Telephone [facility] Interventional Radiology [address] [place] [address] Thad De Leon Appointment 09/02/2024 4:00 PM EDT [facility] [address] [facility] [address] [place] [phone] Doron Botello MD Alcoholic cirrhosis of liver without ascites (CMS-HCC); Cirrhosis of liver with ascites, unspecified hepatic cirrhosis type (CMS-HCC) 09/02/2024 2:40 PM EDT Office Visit [facility] Gastroenterology at [facility] [address] [facility] [address] [place] [phone] Gerri Peterson MD Cirrhosis of liver with ascites, unspecified hepatic cirrhosis type (CMS-HCC) (Primary Dx); Alcoholic cirrhosis of liver without ascites (CMS-HCC) 09/02/2024 Orders Only [facility] [address] [place] [id number] Noé Giordano MD Hypokalemia (Primary Dx) 09/02/2024 Telephone [facility] [address] [place], [place] [id number] Unknown, Attending Provider After Hours Call 09/02/2024 Orders Only [facility] Liver Transplant at [facility] [address] [facility] [address] [place] [phone] Mary Butler, RN Pre-transplant evaluation for chronic liver disease (Primary Dx); Alcoholic cirrhosis of liver without ascites (CMS-HCC) 09/02/2024 Telephone [facility] Gastroenterology at [facility] [address] [facility] [address] [place] [phone] Gerri Peterson MD Orders (Order Request (New) ) 09/02/2024 Telephone [facility] G[facility]enterology at [facility] [address] [facility] [address] [place] [address] Chris Orosco MD from Last 3 Months Social History Tobacco [...] the past 12 months has th e [employer], gas, oil, or water mobli threatened to shut off services in your [...] [facility] END[facility] [address] [place] [phone] Chris Orosco MD [address] [place] [phone] 12/05/2024 8:01 AM EDT - 12/05/2024 8:31 AM EDT Surgery [facility] ENDOSCOPY [address] [place] [phone] Chris Orosco MD [address] [place] [address] EGD Scheduled Procedures Name Priority Associated Diagnoses Date/Ti me EGD Cirrhosis of liver with ascites, unspecified hepatic cirrhosis type ([facility]-HCC) 12/05/2024 8:01 AM EDT Health Maintenance Due [...] 10/05/2024, 09/03/2024, Additional history exists Renal Function/GFR 11/13/2025 11/13/2024, 0 11/11/2024, 11/06/2024, Additional history exists Immunization: DTaP/Tdap/Td ( 3 - Td or Tdap) 06/03/2028 06/03/2018, 09/13/2010 HIV Screening Completed 10/25/2024, 10/07/2024 Hepatitis C Screening (MyChart) Completed 10/25/2024, 10/07/2024, 10/06/2024, Additional history exists Procedures Procedure Name Priority Date/Time Associated Diagnosis Comments RENAL FUNCTION PANEL W/O EGFR Routine 11/13/2024 8:44 AM EDT TACROLIMUS LEVEL Routine 11/13/2024 8:44 AM EDT CBC AND DIFFERENTIAL Routine 11/13/2024 8:44 AM EDT HEPATIC FUNCTION PANEL Routine 8:44 AM EDT MAGNESIUM Routine 11/11/2024 9:13 AM EDT Kidney [...] Routine 10/31/2024 10:19 AM EDT US DUPLEX VYB-FQOTYU-LNKNUNR COMPLETE Routine 10/31/2024 10:19 AM EDT ECG [...] STAT 10/28/2024 4:23 PM EDT US DUPLEX MOG-TVPCWN-CJLOKJU COMPLETE STAT 10/28/2024 4:23 PM EDT TRANSFUSE [...] STAT 10/27/2024 9:51 AM EDT US DUPLEX LNU-ZAEGKZ-YSREQAL COMPLETE STAT 10/27/2024 9:51 AM EDT US [...] CKD (CMS-HCC) NM RENAL ALTRNSPLJ IMPLTJ GRF W/HOT CAR CHARGER NEPHRECTOMY 10/27/2024 2:32 AM EDT Acute kidney [...] LIPID PANEL Routine 10/07/2024 6:37 PM EDT QQRUQ-2-LWLFJECILGD (AAT) QUANTITATION & MUTATION Routine 10/07/2024 6:37 [...] Routine 10/07/2024 3:48 PM EDT US DUPLEX UKM-QXJJUE-KUNNTHH COMPLETE Routine 10/07/2024 3:48 PM EDT CARISA [...] 10/06/2024 4:01 AM EDT UPPER RESPIRATORY VIRAL/BACTERIAL PANEL-STEAM AND GAS TURBINE ASSEMBLER ONLY Routine 10/06/2024 3:12 AM EDT XR [...] STAT 09/03/2024 10:30 AM EDT US DUPLEX IOJ-CHSJPL-SMIJEMS COMPLETE STAT 09/03/2024 10:30 AM EDT URINALYSIS, [...] Alcoholic cirrhosis of liver without ascites (CMS-HCC) from Last 3 Months Results * (ABNORMAL) Hepatic Function Panel (11/13/2024 8:44 AM EDT) Only the most recent of40 resultswithin the time period is included. Pathologist [facility] [place] Bilirubin, Direct 0.6 Bilirubin, Indirect 0.2 Alkaline Phosphatase 137 U/L ALT 29 U/L AST 20 U/L Total Bilirubin 0.8 0.1 - 1.4 mg/dL Total Protein 5.8(A) 6.4 - 8.2 g/dL Plasma Narrative Resulting Agency Comment [facility] Historical Provider MD LAB BLOOD ORDERABLES Denisse l Result * Tacrolimus level (11/13/2024 8:44 AM EDT) Only the most recent of10 resultswithin the time period is included. Pathologist [facility] [place] Tacrolimus Lvl 10.9 6 - 15 ng/mL Whole Blood Narrative Resulting Agency Comment [facility] Provider MD LAB BLOOD ORDERABLES Denisse l Result * (ABNORMAL) CBC and differential (11/13/2024 8:44 AM EDT) Only the most recent of3 resultswithin the time period is included. Pathologist [facility] [place] Hemoglobin 9.8(A) 13.5 - 17.5 g/dL Hematocrit 30.0(A) 41 - 53 % RDW 19.1(A) 11.5 - 14.5 % Lymphocytes Absolute 1.2 / L Monocytes Absolute 0.4 / L Eosinophils Absolute 0.1 / L Basophils Absolute 0.1 / L Neutrophils Relative 67.2 46 - 78 % Lymphocytes Relative 21.3 18 - 52 % Monocytes Relative 7.8 3 - 10 % Eosinophils Relative 1.2 0 - 6 % Basophils Relative 1.8 0 - 3 % Neutrophils Absolute 3.8 / L MCH 30.3 26.0 - 34.0 pg MCHC 32.7 30 - 37 g/dL MCV 92.9 82.0 - 108.0 fL Platelets 195 K/ L RBC 3.23(A) 4.50 - 5.90 10^6/ L WBC 5.7 10^3/mL Blood Narrative Resulting Agency Comment [facility] Historical Provider MD LAB BLOOD ORDERABLES Denisse l Result * (ABNORMAL) Renal Function Panel w/o EGFR (11/13/2024 8:44 AM EDT) Only the most recent of5 resultswithin the time period is included. Glucose 108 mg/dL BUN 25(A) 4 - 21 mg/dL CO2 22 13 - 22 mmol/L Creatinine 0.90 0.6 - 1.3 mg/dL Potassium 4.5 3.4 - 5.3 mmol/L Sodium 135(A) 137 - 147 mmol/L Chloride 102 99 - 108 mmol/L Phosphorus 4.6 2.5 - 4.9 mg/dL Calcium 9.2 8.7 - 10.7 mg/dL EGFR 93 mg/dL Albumin 3.8 3.5 - 5.0 g/dL Blood Narrative Resulting Agency Comment [facility] Historical Provider MD LAB BLOOD ORDERABLES Denisse l Result * (ABNORMAL) Post Kidney Transplant Urine Culture (11/11/2024 9:13 AM EDT) Only the most recent of3 resultswithin the time period is included. Culture Result Enterococcus faecium(A) [facility] Comment: <1,000 cfu/mL Identified by MALDI-TOF MS No Further Workup Midstream Urine URINE SPECIMEN / Unknown 11/11/2024 9:13 AM EDT 11/11/2024 10:17 AM EDT Caron Santos CNP MICROBIOLOGY - GENERAL OR DERABLES Final Result [facility] [address] [facility] [place] [address], [facility] * (ABNORMAL) Renal Function Panel w/EGFR (11/11/2024 9:13 AM EDT) Only the most recent of40 resultswithin the time period is included. Sodium 141 133 - 146 mmol/L 11/11/2024 10:51 AM EDT [facility] Potassium 4.6 3.5 - 5.3 mmol/L 11/11/2024 10:51 AM EDT [facility] Chloride 108 98 - 110 mmol/L 11/11/2024 10:51 AM EDT [facility] CO2 24 21 - 33 mmol/L 11/11/2024 10:51 AM EDT [facility] Anion Gap 9 3 - 16 mmol/L 11/11/2024 10:51 AM EDT [facility] BUN 27(H) 7 - 25 mg/dL 11/11/2024 10:51 AM EDT [facility] Creatinine 1.14 0.60 - 1.30 mg/dL 11/11/2024 10:51 AM EDT [facility] Glucose 97 70 - 100 mg/dL 11/11/2024 10:51 AM EDT [facility] Calcium 8.6 8.6 - 10.3 mg/dL 11/11/2024 10:51 AM EDT [facility] Phosphorus 4.4 2.1 - 4.7 mg/dL 11/11/2024 10:51 AM EDT [facility] Albumin 3.8 3.5 - 5.7 g/dL 11/11/2024 10:51 AM EDT [facility] Osmolality, Calculated 297 278 - 305 mOsm/kg 11/11/2024 10:51 AM EDT [facility] EGFR 83 11/11/2024 10:51 AM EDT [facility] Comment:As of 2021, the [...] morning medications. Liver Transplant Fax results to [phone] Call Critical results to [phone] DO NOT REPLACE RENAL PANEL or HEPATIC FUNCTION PANEL w/ CMP, BMP or HEPATIC PROFILE Harvey Domínguez III, MD LAB BLOOD ORDERABLE S Final Result Performing Organization Address [facility] de Phone Number [facility] [address] [facility]. [address] * Protein / creatinine ratio, urine (11/11/2024 9:13 AM EDT) Only the most recent of2 resultswithin the time period is included. Creatinine, Urine 71.40 mg/dL 11/11/2024 10:38 AM EDT [facility] Comment:Reference range not established for this test. Total Protein, Ur 28 mg/dL 11/11/2024 10:38 AM EDT [facility] Comment:Reference range not established for this test. Prot/Creat Ratio, Ur 0.39 ratio 11/11/2024 10:38 AM EDT [facility] Urine 11/11/2024 9:13 AM EDT 11/11/2024 10:12 AM EDT us Caron Santos CNP URINE ORDERABLES Final Re sult Performing Organization Address [facility] Co de Phone Number [facility] [address] [facility]. [address] * (ABNORMAL) Differential (11/11/2024 9:13 AM EDT) Only the most recent of6 resultswithin the time period is included. Neutrophils Relative 69.3 40.0 - 80.0 % 11/11/2024 10:31 AM EDT [facility] Lymphocytes Relative 17.6 15.0 - 45.0 % 11/11/2024 10:31 AM EDT [facility] Monocytes Relative 8.5 0.0 - 12.0 % 11/11/2024 10:31 AM EDT [facility] Eosinophils Relative 2.0 0.0 - 8.0 % 11/11/2024 10:31 AM EDT [facility] Basophils Relative 2.6(H) 0.0 - 1.0 % 11/11/2024 10:31 AM EDT [facility] nRBC 0 0 - 0 /100 WBC 11/11/2024 10:31 AM EDT [facility] Neutrophils Absolute 4,920 1,520 - 8,640 /uL 11/11/2024 10:31 AM EDT [facility] Lymphocytes Absolute 1,250 570 - 4,860 /uL 11/11/2024 10:31 AM EDT [facility] Monocytes Absolute 604 0 - 1,296 /uL 11/11/2024 10:31 AM EDT [facility] Eosinophils Absolute 142 0 - 864 /uL 11/11/2024 10:31 AM EDT [facility] Basophils Absolute 185(H) 0 - 108 /uL 11/11/2024 10:31 AM EDT [facility] Whole Blood 11/11/2024 9:13 AM EDT 11/11/2024 10:19 AM EDT Narrative [facility] - 11/11/2024 10:31 AM EDT Standing orders to be drawn: Every Sunday and before 9am and prior to patient taking morning medications. Liver Transplant Fax results to [phone] Call Critical results to [phone] us Harvey Domínguez III, MD LAB BLOOD ORDERABLE S Final Result [facility] [address] [place] [address], [facility] * (ABNORMAL) Urinalysis w/Rfl to Microscopic (11/11/2024 9:13 AM EDT) Only the most recent of5 resultswithin the time period is included. Color, UA Straw Yellow,Straw 11/11/2024 10:36 AM EDT [facility] Clarity, UA Clear Clear 11/11/2024 10:36 AM EDT [facility] Specific [place], UA 1.015 1.005 - 1.035 11/11/2024 10:36 AM EDT [facility] pH, UA 6.0 5.0 - 8.0 11/11/2024 10:36 AM EDT [facility] Protein, UA Negative Negative mg/dL 11/11/2024 10:36 AM EDT [facility] Glucose, UA Negative Negative mg/dL 11/11/2024 10:36 AM EDT [facility] Ketones, UA Negative Negative mg/dL 11/11/2024 10:36 AM EDT [facility] Bilirubin, UA Negative Negative 11/11/2024 10:36 AM EDT [facility] Blood, UA Small(A) Negative 11/11/2024 10:36 AM EDT [facility] Nitrite, UA Negative Negative 11/11/2024 10:36 AM EDT [facility] Urobilinogen, UA <2.0 0.2 - 1.9 mg/dL 11/11/2024 10:36 AM EDT [facility] Leukocyte Esterase, UA Negative Negative 11/11/2024 10:36 AM EDT [facility] RBC, UA 13(H) 0 - 3 /HPF 11/11/2024 10:36 AM EDT [facility] WBC, UA 4 0 - 5 /HPF 11/11/2024 10:36 AM EDT [facility] Urine 11/11/2024 9:13 AM EDT 11/11/2024 10:10 AM EDT us Caron Santos WET SANDER URINE ORDERABLES Final Re sult [facility] [address] * (ABNORMAL) CBC (11/11/2024 9:13 AM EDT) Only the most recent of47 resultswithin the time period is included. WBC 7.1 3.8 - 10.8 10E3/uL 11/11/2024 10:31 AM EDT [facility] RBC 3.42(L) 4.20 - 5.80 10E6/uL 11/11/2024 10:31 AM EDT [facility] Hemoglobin 10.6(L) 13.2 - 17.1 g/dL 11/11/2024 10:31 AM EDT [facility] Hematocrit 31.3(L) 38.5 - 50.0 % 11/11/2024 10:31 AM EDT [facility] MCV 91.5 80.0 - 100.0 fL 11/11/2024 10:31 AM EDT [facility] MCH 31.0 27.0 - 33.0 pg 11/11/2024 10:31 AM EDT [facility] MCHC 33.8 32.0 - 36.0 g/dL 11/11/2024 10:31 AM EDT [facility] RDW 20.5(H) 11.0 - 15.0 % 11/11/2024 10:31 AM EDT [facility] Platelets 308 140 - 400 10E3/uL 11/11/2024 10:31 AM EDT [facility] MPV 6.1(L) 7.5 - 11.5 fL 11/11/2024 10:31 AM EDT [facility] Whole Blood 11/11/2024 9:13 AM EDT 11/11/2024 10:19 AM EDT Narrative [facility] - 11/11/2024 10:31 AM EDT Standing orders to be drawn: Every Sunday and before 9am and prior to patient taking morning medications. Liver Transplant Fax results to [phone] Call Critical results to [phone] us Harvey Domínguez III, MD LAB BLOOD ORDERABLE S Final Result [facility] [address] [place] [address], [facility] * (ABNORMAL) Magnesium (11/11/2024 9:13 AM EDT) Only the most recent of41 resultswithin the time period is included. Magnesium 1.2(L) 1.5 - 2.5 mg/dL 11/11/2024 10:51 AM EDT [facility] Plasma 11/11/2024 9:13 AM EDT 11/11/2024 10:19 AM EDT us Caron Santos [facility] BLOOD ORDERABLES Denisse l Result Performing Organization Address City/[facility]/ZIP Co de Phone Number [facility] [address] * EKG - scan (11/03/2024 9:07 AM [...] of64 resultswithin the time period is included. Pathologist [facility] [place] POC Glucose Monitoring Device 180(H) 70 - 100 mg/dL 11/02/2024 5:45 PM EDT [facility] Blood 11/02/2024 5:44 PM EDT 11/02/2024 5:45 PM EDT us Harvey Domínguez III, MD POINT OF CARE TEST ORDERABLES Final Result [facility] [address] [facility]. [address] * X-ray Portable Abdomen AP view (11/01/2024 [...] Adrenal gland: No focal nodule seen. Kidneys: [place] kidneys noted with nonobstructing calcifications on the right. Findings of postsurgical changes in the left [place] kidney. Mild right hydronephrosis without an obstructive [...] Adrenal gland: No focal nodule seen. Kidneys: [place] kidneys noted with nonobstructing calcifications on theright. Findings of postsurgical changes in the left [place] kidney. Mildright hydronephrosis without an obstructive course [...] QT: 400 ms QTc: 456 ms P Bradford: 49 degrees R Bradford: 3 degrees T Bradford: 14 degrees Diagnosis Line: NORMAL SINUS RHYTHM ^ NORMAL ECG ^ ^ Confirmed by MD JEANETTE, TORI ([id number]) on 11/02/2024 6:56:52 AM us Priti Alex WET SANDER ECG ORDERABLES Final Result MUSE * US Duplex Ier-Rts-Ivekltg Comp (10/31/2024 10:19 AM EDT) Only the [...] EXAM: US ABDOMEN LIMITED EXAM: US DUPLEX GNP-LUMTCL-LRKOZZT COMPLETE INDICATION: Post-op liver transplant COMPARISON: None [...] visualized secondary to poor acoustic windows. The [place] right kidney measures 11.6 cm in length. [...] EXAM: US ABDOMEN LIMITED EXAM: US DUPLEX EIB-HCRYIY-[id number] COMPLETE INDICATION: Post-op liver transplant COMPARISON: None [...] well visualized secondary to poor acousticwindows. The [place] right kidney measures 11.6 cm in length. [...] 10/31/2024 10:35 AM EDT us Beata Horner WET SANDER IMG US ORDERABLES Final R esult * [...] EXAM: US ABDOMEN LIMITED EXAM: US DUPLEX [id number] COMPLETE INDICATION: Post-op liver transplant COMPARISON: None [...] visualized secondary to poor acoustic windows. The [place] right kidney measures 11.6 cm in length. [...] EXAM: US ABDOMEN LIMITED EXAM: US DUPLEX [id number] COMPLETE INDICATION: Post-op liver transplant COMPARISON: None [...] well visualized secondary to poor acousticwindows. The [place] right kidney measures 11.6 cm in length. [...] at 10/31/2024 10:35 AM EDT Beata Horner [facility] US ORDERABLES Final R esult * [...] at 10/31/2024 10:29 AM EDT Beata Horner [facility] US ORDERABLES Final R esult * Prepare RBC, leukoreduced, 1 Units (10/29/2024 6:16 AM EDT) Only the most recent of7 resultswithin the time period is included. Product Code D5823V86 [facility] Unit Number [id number] [facility] Dispense Status Presumed Transfused_PT [facility] Blood Expiration Date [id number] [facility] Coding System [id number] [facility] Blood Bank Product Shay Guzmán MD BLOOD BANK PRODUCT O RDERABLES Final Result [facility] * (ABNORMAL) TEG-Bypass/ECMO/Liver HN (Factor function, Platelet/Fibrin Clot Strength w/Clot Breakdown, Heparinase In All Channels) (10/29/2024 5:07 AM EDT) Only the most recent of13 resultswithin the time period is included. Citrated Kaolin Reaction Time (TEGECMOLIVER) 8.9 4.6 - 9.1 minutes 10/29/2024 7:04 AM EDT [facility] Citrated Kaolin W/Heparinase Reaction Time (TEGECMOLIVER) 7.4 4.3 - 8.3 minutes 10/29/2024 7:04 AM EDT [facility] Citrated Kaolin Maximum Amplitude (TEGECMOLIVER) 52.9 52.0 - 69.0 mm 10/29/2024 7:04 AM EDT [facility] Citrated Functional Fibrinogen W/Heparinase Maximum Amplitude(TEGEC MOLIVER) 20.7 15.0 - 34.0 mm 10/29/2024 7:04 AM EDT [facility] Citrated Rapid Teg W/Heparinase Maximum Amplitude (TEGECMOLIVER) 49.7(L) 53.0 - 69.0 mm 10/29/2024 7:04 AM EDT [facility] Citrated Kaolin w/Heparinase Percent Lysis (TEGECMOLIVER) 0.0 0.0 - 3.2 % 10/29/2024 7:04 AM EDT [facility] Whole Blood (Citrate) 10/29/2024 5:07 AM EDT 10/29/2024 5:10 AM EDT Kemar Sahni MD LAB BLOOD ORDERABLES Final Result Performing Organization Address [facility] Co de Phone Number [facility] [address] * Transfuse RBC Transfusion Rate: Per dept routine (10/28/2024 5:23 PM EDT) Only the most recent of17 resultswithin the time period is included. Shay Guzmán MD NURSING TREATMENT OR DERABLES - BLOOD ADMIN Final Result Performing Organization Address City/[facility] Co de Phone Number EXTERNAL * (ABNORMAL) Lactic Acid, STAT (10/28/2024 11:09 AM EDT) Only the most recent of12 resultswithin the time period is included. Lactate 0.3(L) 0.5 - 2.2 mmol/L 10/28/2024 11:37 AM EDT [facility] Plasma 10/28/2024 11:0 9 AM EDT 10/28/2024 11:15 AM EDT Carlos Marks MD LAB BLOOD ORDERABLES Final Result Performing Organization Address [facility] de Phone Number [facility] [address] [facility]. [address] * Protime-INR, STAT (10/28/2024 11:09 AM EDT) Only the most recent of33 resultswithin the time period is included. Protime 14.3 12.1 - 15.1 seconds 10/28/2024 11:29 AM EDT [facility] INR 1.1 0.9 - 1.1 10/28/2024 11:29 AM EDT [facility] Comment: RECOMMENDED THERAPEUTIC RANGES USING INR : Stable oral anticoagulant therapy: 2.0 - 3.0 Mechanical prosthetic heart valve: 2.5 - 3.5 Recurrent acute myocardial infarction: 2.5 - 3.5 Plasma 10/28/2024 11:0 9 AM EDT 10/28/2024 11:16 AM EDT us Carlos Marks MD LAB BLOOD ORDERABLES Final Result [facility] [address] * Prepare Platelets, leukoreduced (10/28/2024 6:15 AM EDT) Only the most recent of5 resultswithin the time period is included. Product Code Z0564T86 [facility] Unit Number [id number] [facility] Dispense Status Presumed Transfused_PT [facility] Blood Expiration Date [facility] Coding System [id number] [facility] Product Code E2113J13 [facility] Unit Number [id number] [facility] Dispense Status Presumed Transfused_PT [facility] Blood Expiration Date [facility] Coding System [id number] [facility] us Attending Provider Unknown BLOOD BANK PRODUCT OR DERABLES Final Result Performing Organization Address City/[facility]/ZIP Co de Phone Number [facility] * Prepare Fresh Frozen Plasma (10/28/2024 6:15 AM EDT) Only the most recent of5 resultswithin the time period is included. Product Code H9106F98 [facility] Unit Number [id number] [facility] Dispense Status Released from Crossmatch_RE [facility] Blood Expiration Date [facility] Coding System VQSL115 [facility] Product Code F3399V04 [facility] Unit Number [id number] [facility] Dispense Status Presumed Transfused_PT [facility] Blood Expiration Date [facility] Coding System CYHV320 [facility] Product Code E3657X45 [facility] Unit Number [id number] [facility] Dispense Status Released from Crossmatch_RE [facility] Blood Expiration Date [facility] Coding System LOUH183 [facility] Product Code F1023H02 [facility] Unit Number [id number] [facility] Dispense Status Presumed Transfused_PT [facility] Blood Expiration Date [facility] Coding System BDGN869 [facility] Product Code O5203T12 [facility] Unit Number [id number] [facility] Dispense Status Released from Crossmatch_RE [facility] Blood Expiration Date [id number] [facility] Coding System [id number] [facility] us Attending Provider Unknown BLOOD BANK PRODUCT OR DERABLES Final Result Performing Organization Address City/[facility]/ZIP Co de Phone Number [facility] * Prepare Cryoprecipitate, 1 Units (10/28/2024 6:15 AM EDT) Only the most recent of4 resultswithin the time period is included. Product Code J3104P05 [facility] Unit Number [id number] [facility] Dispense Status Presumed Transfused_PT [facility] Blood Expiration Date [id number] [facility] Coding System [id number] [facility] Product Code B7906F43 [facility] Unit Number [id number] [facility] Dispense Status Presumed Transfused_PT [facility] Blood Expiration Date [id number] [facility] Coding System [id number] [facility] Blood Bank Product John Pina MD BLOOD BANK PRODUCT ORDERABLES F inal Result Performing Organization Address [facility] de Phone Number [facility] * (ABNORMAL) Blood Gas, Arterial, STAT (10/27/2024 2:40 PM EDT) Only the most recent of6 resultswithin the time period is included. O2 Sat, Arterial 98 10/27/2024 2:46 PM EDT [facility] FIO2 RA 10/27/2024 2:46 PM EDT [facility] pH, Arterial 7.37 7.35 - 7.45 10/27/2024 2:46 PM EDT [facility] pCO2, Arterial 35 35 - 45 mm Hg 10/27/2024 2:46 PM EDT [facility] pO2, Arterial 92 80 - 100 mm Hg 10/27/2024 2:46 PM EDT [facility] HCO3, Arterial 21(L) 22 - 26 mmol/L 10/27/2024 2:46 PM EDT [facility] CO2 Content,Arteri al 21(L) 23 - 27 mmol/L 10/27/2024 2:46 PM EDT [facility] Base Excess, Arterial -4.6(L) -2.0 - 3.0 mmol/L 10/27/2024 2:46 PM EDT [facility] %HBO2, Arterial 95.4 95.0 - 98.0 % 10/27/2024 2:46 PM EDT [facility] Carboxyhemoglo bin, Arterial 1.6 % 10/27/2024 2:46 PM EDT [facility] Comment: CARBOXYHEMOGLOBIN (CO) REFERENCE RANGES: Non-Smokers: <2 % Smokers: <8 % TOXIC: >20 % Methemoglobin, Arterial 1.0 0.0 - 1.5 % 10/27/2024 2:46 PM EDT [facility] Reduced hemoglobin, Arterial 2.1 0.0 - 5.0 % 10/27/2024 2:46 PM EDT [facility] Blood, Arterial 10/27/2024 2 :40 PM EDT 10/27/2024 2:44 PM EDT Narrative [facility] - 10/27/2024 2:46 PM EDT Post extubation John Coulter MD LAB BLOOD ORDERABLES Final R esult [facility] [address] * CARISA Rhythm Strip - Scan (10/27/2024 9:25 AM EDT) Only the most recent of8 resultswithin the time period is included. us Scanning [place] SCAN DOCS - NO [...] 10/27/2024 9:22 AM EDT John Coulter MD [facility] DIAGNOSTIC IMAGING ORDER PAL Final Result * (ABNORMAL) Katie-Watkins virus VCA IgG Antibody (10/27/2024 8:00 AM EDT) EBV VCA IgG Positive( A) Negative 10/27/2024 11:30 AM EDT [facility] Comment:Presence of detectab le VCA IgG antibodies. 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 EBV IGG NUM 314.00(H) 0.00 - 17.99 U/mL 10/27/2024 11:30 AM EDT [facility] Serum 10/27/2024 8:00 AM EDT 10/27/2024 8:20 AM EDT Kemar Sahni MD LAB BLOOD ORDERABLES Final Result Performing Organization Address City/State/[facility] Co de Phone Number [facility] [address] * Hemoglobin A1c (10/27/2024 8:00 AM EDT) Only the most recent of2 resultswithin the time period is included. Hemoglobin A1C 5.0 4.0 - 5.6 % 10/27/2024 11:12 AM EDT [facility] [facility] Comment: Hemoglobin A1c Interpretation Guidelines: [...] other individual patient considerations. Whole Blood 10/27/2024 8:0 0 AM EDT 10/27/2024 8:20 AM EDT Kemar Sahni MD LAB BLOOD ORDERABLES Final Result [facility] [address] [facility]. [address] * X-ray Abdomen AP view (10/27/2024 [...] MD at 10/27/2024 7:49 AM EDT us MD AGAPITO Alves III DIAGNOSTIC IMAG ING ORDERABLES Final Result * Transfuse Platelets (10/27/2024 6:09 AM EDT) Only the most recent of6 resultswithin the time period is included. Ben Blake MD NURSING TREATMENT ORDERABLES - BLOOD ADMIN Final Result * (ABNORMAL) Arterial Blood Gas Panel (10/27/2024 6:09 AM EDT) Only the most recent of2 resultswithin the time period is included. O2Sat (ABGP) 100 10/27/2024 6:17 AM EDT [facility] pH (ABGP) 7.30(L) 7.35 - 7.45 10/27/2024 6:17 AM EDT [facility] PCO2 (ABGP) 41 35 - 45 mm Hg 10/27/2024 6:17 AM EDT [facility] PO2 (ABGP) 192(H) 80 - 100 mm Hg 10/27/2024 6:17 AM EDT [facility] HCO3 (ABGP) 21(L) 22 - 26 mmol/L 10/27/2024 6:17 AM EDT [facility] CO2 Content (ABGP) 22(L) 23 - 27 mmol/L 10/27/2024 6:17 AM EDT [facility] Base Excess (ABGP) -5.7(L) -2.0 - 3.0 mmol/L 10/27/2024 6:17 AM EDT [facility] Sodium (ABGP) 138 136 - 146 mEq/L 10/27/2024 6:17 AM EDT [facility] Potassium (ABGP) 3.3(L) 3.5 - 5.0 mEq/L 10/27/2024 6:17 AM EDT [facility] Comment:In the event of in-v itro hemolysis, potassium results may be falsely elevated. Always interpret lab results in conjunction with clinical findings. If hemolysis is suspected, a serum sample may be collected for repeat assessment of potassium. Calcium, Free (ABGP) 5.28 4.50 - 5.30 mg/dL 10/27/2024 6:17 AM EDT [facility] Glucose (ABGP) 112(H) 70 - 100 mg/dL 10/27/2024 6:17 AM EDT [facility] Comment:There is interferenc e with whole blood glucose results on this method when Hematocrit is <25% or >60%. HCT (ABGP) 20.0(L) 40.0 - 52.0 % 10/27/2024 6:17 AM EDT [facility] HGB (ABGP) 6.5(L) 14.0 - 18.0 g/dL 10/27/2024 6:17 AM EDT [facility] %HBO2 (ABGP) 96.8 95.0 - 98.0 % 10/27/2024 6:17 AM EDT [facility] Carboxyhgb (ABGP) 2.1 % 025 6:17 AM EDT [facility] Comment: CARBOXYHEMOGLOBIN (CO) REFERENCE RANGES: Non-Smokers: <2 % Smokers: <8 % TOXIC: >20 % Methemoglobin (ABGP) 1.0 0.0 - 1.5 % 10/27/2024 6:17 AM EDT [facility] Reduced Hemoglobin (ABGP) 0.2 0.0 - 5.0 % 10/27/2024 6:17 AM EDT [facility] Lactic Acid (ABGP) 0.4(L) 0.5 - 1.6 mmol/L 10/27/2024 6:17 AM EDT [facility] Blood, Arterial 10/27/2024 6 :09 AM EDT 10/27/2024 6:14 AM EDT Ben Blake MD LAB BLOOD ORDERABLES Final Re sult [facility] [address] [place] [address], [facility] * Transfuse Fresh Frozen Plasma (10/27/2024 5:49 AM EDT) Only the most recent of15 resultswithin the time period is included. us Ben Blake MD NURSING TREATMENT ORDERABLES - BLOOD ADMIN Final Result * Transfuse Cryoprecipitate (10/27/2024 4:56 AM EDT) Only the most recent of9 resultswithin the time period is included. Ben Blake MD NURSING TREATMENT ORDERABLES - BLOOD ADMIN Final Result * Hox - HLA Antibody Report (10/27/2024 4:16 AM EDT) 10/27/2024 4:1 6 AM EDT Abdulkadir Gaspar MD LAB BLOOD ORDERABLES Final Resul t [facility] [address] [facility] [place] [address] * Surgical Pathology Exam (10/27/2024 2:38 AM EDT) Only the most recent of2 resultswithin the time period is included. Tissue LEFT KIDNEY STRUCTURE / Unknown 10/27/2024 2:38 AM EDT Narrative [facility] - 10/27/2024 12:00 AM EDT CASE: [id number] PATIENT: BLAIR ANDERSON Clinical History: Transplant kidney with bile duct reconstruction Pre-Operative Diagnosis: Acute kidney injury superimposed on CKD Post-Operative Diagnosis: None Given Specimen(s) Submitted: A. baseline renal biopsy ; B. right lobe liver biopsy; C. left lobe liver biopsy CPT Code(s): 17137 X 1; 17474 X 2; 68835 X 4 Additional Information: FINAL DIAGNOSIS: A. [...] submitted between blue biopsy sponges in cassette [id number]. (NAA Mckeon/ns) C. Received in formalin, [...] signing this report is located at [facility], [address] [place] [address], [facility], , CLIA ID: [id number] ADDENDUM: A. Kidney, allograft, baseline, wedge biopsy: [...] signing this report is located at [facility], [address] [place] [address], [facility], , CLIA ID: [id number] Kemar Sahni MD PATHOLOGY/CYTOLOGY ORDERABL ES Edited Result - Final Performing Organization Address [facility] Co de Phone Number [facility] * Routine Culture plus Stain (10/27/2024 2:15 AM EDT) Only the most recent of2 resultswithin the time period is included. Gram Stain Result No Polymorphonuclear Leukocytes Seen [facility] Gram Stain Result No Organisms Seen; [facility] Culture Result No Growth After 3 Days [facility] Fluid SPECIMEN FROM KIDNEY / Unknown 10/27/2024 2:15 AM EDT 10/27/2024 4:24 AM EDT Narrative [facility] - 10/30/2024 9:26 AM EDT 1) perfusate Harvey Domínguez III, MD MICROBIOLOGY - GENE RAL ORDERABLES Final Result Performing Organization Address [facility] Co de Phone Number [facility] [address] [place] [address] * Anaerobic culture (10/27/2024 2:15 AM EDT) Only the most recent of2 resultswithin the time period is included. Culture Result No Anaerobes Isolated in 5 Days [facility] Fluid SPECIMEN FROM KIDNEY / Unknown 10/27/2024 2:15 AM EDT 10/27/2024 4:24 AM EDT Narrative [facility] - 10/31/2024 11:43 AM EDT 1) perfusate Harvey Domínguez III, MD MICROBIOLOGY - GENE RAL ORDERABLES Final Result Performing Organization Address [facility] Co de Phone Number [facility] [address] [place] [address] * (ABNORMAL) TEG-Standard Global Hemostasis (Rapid TEG with Heparin Effect, Contains a Baseline TEG) (10/27/2024 1:51 AM EDT) Only the most recent of2 resultswithin the time period is included. Citrated Kaolin Reaction Time (TEGHEPARINASE) 10.6(H) 4.6 - 9.1 minutes 10/27/2024 2:44 AM EDT [facility] Citrated Rapid Teg Maximum Amplitude (TEGHEPARINASE) 42.3(L) 52.0 - 70.0 mm 10/27/2024 2:44 AM EDT [facility] Citrated Functional Fibrinogen Maximum Amplitude (TEGHEPARINASE) 15.0 15.0 - 32.0 mm 10/27/2024 2:44 AM EDT [facility] Citrated Kaolin W/Heparinase Reaction Time (TEGHEPARINASE) 10.5(H) 4.3 - 8.3 minutes 10/27/2024 2:44 AM EDT [facility] Citrated Kaolin K-Time (TEGHEPARINASE) 2.9(A) 0.8 - 2.1 minutes 10/27/2024 2:44 AM EDT [facility] Citrated Kaolin Angle (TEGHEPARINASE) 60.4(A) 63.0 - 78.0 degrees 10/27/2024 2:44 AM EDT [facility] Citrated Kaolin Maximum Amplitude (TEGHEPARINASE) 42.9(L) 52.0 - 69.0 mm 10/27/2024 2:44 AM EDT [facility] Citrated Functional Fibrinogen- Fibrinogen Level (TEGHEPARINASE) 273.7(L) 278.0 - 581.0 mg/dL 10/27/2024 2:44 AM EDT [facility] Whole Blood (Citrate) 10/27/2024 1:51 AM EDT 10/27/2024 2:03 AM EDT us John Pina MD LAB BLOOD ORDERABLES Final Resu lt [facility] [address] [place] [address], [facility] * Calcium Free, Serum (10/27/2024 12:13 AM EDT) Only the most recent of3 resultswithin the time period is included. Free Calcium, Ser 5.20 4.40 - 5.40 mg/dL 10/27/2024 12:37 AM EDT [facility] Comment:Free calcium levels vary inversely with pH by approximately 5% for each 0.1 unit of pH change. Assay results have been normalized to pH = 7.40. Serum 10/27/2024 12:1 3 AM EDT 10/27/2024 12:29 AM EDT Narrative [facility] - 10/27/2024 12:37 AM EDT [...] ORDERABLES Final Resu lt Performing Organization Address [facility] Co de Phone Number [facility] [address] * Repeat Crossmatch (Recipient Sample) (10/26/2024 4:42 PM EDT) Repeat Cx - Recipient The request and specimen(s) for this test have been received and transported to the [facility] at [address] [place] [address]. The [facility] will report results directly to the client. 10/26/2024 4:49 PM EDT [facility] Whole Blood 10/26/2024 4:42 PM EDT 10/26/2024 4:49 PM EDT Narrative [facility] - 10/26/2024 4:49 PM EDT To be sent to [facility] for Donor UNOS#[id number] cross match with Blair Anderson Sveta Mojica MD LAB BLOOD ORDERABLES Final Resu lt Performing Organization Address City/[facility]/ZIP Co de Phone Number [facility] [address] * (ABNORMAL) Fibrinogen (10/26/2024 6:10 AM EDT) Only the most recent of2 resultswithin the time period is included. Fibrinogen 160(L) 218 - 406 mg/dL 10/26/2024 6:41 AM EDT [facility] Plasma 10/26/2024 6:10 AM EDT 10/26/2024 6:26 AM EDT Sveta Mojica MD LAB BLOOD ORDERABLES Final Resu lt Performing Organization Address City/[facility] Co de Phone Number [facility] [address] * (ABNORMAL) POC INR (10/26/2024 5:16 AM EDT) Only the most recent of6 resultswithin the time period is included. Prothrombin Time INR, POC 2.4(H) 0.8 - 1.4 10/27/2024 6:51 AM EDT [facility] Comment: Test results may vary [...] TEST ORDERABLES Final Result Performing Organization Address City/[facility] Co de Phone Number [facility] [address] [facility]. [address] * POC Lactate (10/26/2024 5:14 AM EDT) Only the most recent of6 resultswithin the time period is included. POC Lactate 1.76 0.50 - 2.20 mmol/L 10/26/2024 5:31 AM EDT [facility] Blood, Arterial 10/26/2024 5 :14 AM EDT 10/26/2024 5:31 AM EDT us Harvey Domínguez III, MD POINT OF CARE TEST ORDERABLES Final Result Performing Organization Address City/[facility] Co de Phone Number [facility] [address] [address] * POC TCO2 (10/26/2024 5:14 AM EDT) Only the most recent of6 resultswithin the time period is included. POC TCO2, Arterial 23 23 - 27 mmol/L 10/26/2024 5:31 AM EDT [facility] Blood, Arterial 10/26/2024 5 :14 AM EDT 10/26/2024 5:31 AM EDT us Harvey Domínguez III, MD POINT OF CARE TEST ORDERABLES Final Result Performing Organization Address [facility] Co de Phone Number [facility] [address] [facility]. [address] * POC Sodium (10/26/2024 5:14 AM EDT) Only the most recent of6 resultswithin the time period is included. POC Sodium 138 136 - 146 mmol/L 10/26/2024 5:31 AM EDT [facility] Blood, Arterial 10/26/2024 5 :14 AM EDT 10/26/2024 5:31 AM EDT Harvey Domínguez III, MD POINT OF CARE TEST ORDERABLES Final Result Performing Organization Address City/[facility] Co de Phone Number [facility] [address] [facility]. [address] * (ABNORMAL) POC Potassium (10/26/2024 5:14 AM EDT) Only the most recent of6 resultswithin the time period is included. POC Potassium 2.8(LL) 3.5 - 5.3 mmol/L 10/26/2024 5:31 AM EDT [facility] Blood, Arterial 10/26/2024 5 :14 AM EDT 10/26/2024 5:31 AM EDT us Harvey Domínguez III, MD POINT OF CARE TEST ORDERABLES Final Result Performing Organization Address City/[facility] Co de Phone Number [facility] [address] * (ABNORMAL) POC PO2 (10/26/2024 5:14 AM EDT) Only the most recent of6 resultswithin the time period is included. POC pO2, Arterial 133(H) 80 - 100 mm Hg 10/26/2024 5:31 AM EDT [facility] Blood, Arterial 10/26/2024 5 :14 AM EDT 10/26/2024 5:31 AM EDT us Harvey Domínguez III, MD POINT OF CARE TEST ORDERABLES Final Result Performing Organization Address [facility] Co de Phone Number [facility] [address] [facility]. [address] * POC PCO2 (10/26/2024 5:14 AM EDT) Only the most recent of6 resultswithin the time period is included. POC pCO2, Arterial 45 35 - 45 mm Hg 10/26/2024 5:31 AM EDT [facility] Blood, Arterial 10/26/2024 5 :14 AM EDT 10/26/2024 5:31 AM EDT us Harvey Domínguez III, MD POINT OF CARE TEST ORDERABLES Final Result Performing Organization Address City/[facility] Co de Phone Number [facility] [address] [facility]. [address] * (ABNORMAL) POC O2 SAT (10/26/2024 5:14 AM EDT) Only the most recent of6 resultswithin the time period is included. POC O2 Saturation, Arterial 99(H) 95 - 98 % 10/26/2024 5:31 AM EDT [facility] Blood, Arterial 10/26/2024 5 :14 AM EDT 10/26/2024 5:31 AM EDT Harvey Domínguez III, MD POINT OF CARE TEST ORDERABLES Final Result Performing Organization Address [facility] Co de Phone Number [facility] [address] [place] [address]. [address] * POC HCO3 (10/26/2024 5:14 AM EDT) Only the most recent of6 resultswithin the time period is included. POC HCO3, Arterial 22 22 - 26 mmol/L 10/26/2024 5:31 AM EDT [facility] Blood, Arterial 10/26/2024 5 :14 AM EDT 10/26/2024 5:31 AM EDT Harvey Domínguez III, MD POINT OF CARE TEST ORDERABLES Final Result Performing Organization Address [facility] de Phone Number [facility] [address] [place] [address]. [address] * POC Chloride (10/26/2024 5:14 AM EDT) Only the most recent of6 resultswithin the time period is included. POC Chloride 104 98 - 110 mmol/L 10/26/2024 5:31 AM EDT [facility] Blood, Arterial 10/26/2024 5 :14 AM EDT 10/26/2024 5:31 AM EDT us Harvey Domínguez III, MD POINT OF CARE TEST ORDERABLES Final Result Performing Organization Address [facility] Co de Phone Number [facility] [address] [place] [address]. [address] * (ABNORMAL) POC Base Excess (10/26/2024 5:14 AM EDT) Only the most recent of6 resultswithin the time period is included. POC Base Excess, Arterial -5(L) -2 - 3 mmol/L 10/26/2024 5:31 AM EDT [facility] Blood, Arterial 10/26/2024 5 :14 AM EDT 10/26/2024 5:31 AM EDT Harvey Domínguez III, MD POINT OF CARE TEST ORDERABLES Final Result [facility] [address] [facility]. [address] * POC Anion Gap (10/26/2024 5:14 AM EDT) Only the most recent of6 resultswithin the time period is included. POC Anion Gap, Arterial 12 3 - 16 mmol/L 10/26/2024 5:31 AM EDT [facility] Blood, Arterial 10/26/2024 5 :14 AM EDT 10/26/2024 5:31 AM EDT us Harvey Domínguez III, MD POINT OF CARE TEST ORDERABLES Final Result Performing Organization Address [facility]/ZIP Co de Phone Number [facility] [address] [facility]. [address] * POC Sample Type (10/26/2024 5:14 AM EDT) Only the most recent of6 resultswithin the time period is included. POC Sample Type Arterial 10/26/2024 5:31 AM EDT [facility] Blood, Arterial 10/26/2024 5 :14 AM EDT 10/26/2024 5:31 AM EDT us Harvey Domínguez III, MD POINT OF CARE TEST ORDERABLES Final Result [facility] [address] [facility]. [address] * (ABNORMAL) POC pH (10/26/2024 5:14 AM EDT) Only the most recent of6 resultswithin the time period is included. POC pH, Arterial 7.29(L) 7.35 - 7.45 10/26/2024 5:31 AM EDT [facility] Blood, Arterial 10/26/2024 5 :14 AM EDT 10/26/2024 5:31 AM EDT us Harvey Domínguze III, MD POINT OF CARE TEST ORDERABLES Final Result Performing Organization Address City/[facility]/ZIP Co de Phone Number [address] * (ABNORMAL) POC hematocrit (10/26/2024 5:14 AM EDT) Only the most recent of6 resultswithin the time period is included. POC Hematocrit 28.0(L) 40 - 52 % 10/26/2024 5:31 AM EDT [facility] Blood, Arterial 10/26/2024 5 :14 AM EDT 10/26/2024 5:31 AM EDT us Harvey Domínguez III, MD POINT OF CARE TEST ORDERABLES Final Result Performing Organization Address City/[facility]/ZIP Co de Phone Number [facility] [address] [place] [address]. [address] * (ABNORMAL) POC Ionized Calcium (10/26/2024 5:14 AM EDT) Only the most recent of6 resultswithin the time period is included. POC Ionized Calcium 5.50(H) 4.50 - 5.30 mg/dL 10/26/2024 5:31 AM EDT [facility] Blood, Arterial 10/26/2024 5 :14 AM EDT 10/26/2024 5:31 AM EDT us Harvey Domínguez III, MD POINT OF CARE TEST ORDERABLES Final Result Performing Organization Address [facility] de Phone Number [facility] [address] * (ABNORMAL) POC Glucose (10/26/2024 5:14 AM EDT) Only the most recent of6 resultswithin the time period is included. POC Glucose, Arterial 183(H) 70 - 100 mg/dL 10/26/2024 5:31 AM EDT [facility] Blood, Arterial 10/26/2024 5 :14 AM EDT 10/26/2024 5:31 AM EDT Harvey Domínguez III, MD POINT OF CARE TEST ORDERABLES Final Result Performing Organization Address [facility] de Phone Number [facility] [address] [facility]. [address] * (ABNORMAL) POC Hemoglobin (10/26/2024 5:14 AM EDT) Only the most recent of6 resultswithin the time period is included. Pathologist [facility] [place] POC Hemoglobin 9.5(L) 14.0 - 18.0 g/dL 10/26/2024 5:31 AM EDT [facility] Blood, Arterial 10/26/2024 5 :14 AM EDT 10/26/2024 5:31 AM EDT Harvey Domínguez III, MD POINT OF CARE TEST ORDERABLES Final Result Performing Organization Address [facility] Co de Phone Number [facility] [address] [facility]. [address] * (ABNORMAL) TEG-Global With Lysis (Baseline TEG with LY30, Will NOT Show Heparin Effect) (53:31 AM EDT) Citrated Kaolin Reaction Time (TEGLYSIS) 6.8 4.6 - 9.1 minutes 10/26/2024 5:02 AM EDT [facility] Citrated Rapid Teg Maximum Amplitude (TEGLYSIS) <40.0(L) 52.0 - 70.0 mm 10/26/2024 5:02 AM EDT [facility] Citrated Functional Fibrinogen Maximum Amplitude (TEGLYSIS) <4.0(L) 15.0 - 32.0 mm 10/26/2024 5:02 AM EDT [facility] Citrated Kaolin Percent Lysis (TEGLYSIS) 1.4 0.0 - 2.6 % 10/26/2024 5:02 AM EDT [facility] Whole Blood (Citrate) 10/26/2024 3:31 AM EDT 10/26/2024 3:40 AM EDT us Ebre Quinones MD LAB BLOOD ORDERABLES Fin al Result [facility] [address] * CENTRAL LINE SINGLE LUMEN PERFORMABLE (10/25/2024 11:13 PM EDT) Narrative Ben Blake MD - 10/25/2024 11:13 PM EDT Ben Blake MD 10/26/2024 7:45 PM [place] Emily Cath Date/Time: 10/25/2024 11:13 PM Performed [...] 11:08 PM EDT) Culture Result <1,000 cfu/mL [facility] Culture Result Skin/Urogeni rony Mckayla. No Further Workup. [facility] Newly Placed Berkowitz Urine URINE SPECIMEN / Unknown 10/25/2024 11:08 PM EDT Comment:urine culture Narrative [facility] - 10/28/2024 9:59 AM EDT urine culture urine culture Harvey Domínguez III, MD MICROBIOLOGY - GENE RAL ORDERABLES Final Result [facility] [address] * Insert Arterial Line (10/25/2024 10:45 PM [...] + IgM) Nonreactive 10/25/2024 11:13 PM EDT [facility] Serum 10/25/2024 10:1 7 PM EDT 10/25/2024 10:17 PM EDT Narrative [facility] - 10/25/2024 11:13 PM EDT HAV antibodies not detected us Aysha Gill MD LAB BLOOD ORDERABLES F inal Result [facility] [address] * Iron Studies (Iron + TIBC) (10/25/2024 10:17 PM EDT) Only the most recent of2 resultswithin the time period is included. Iron 128 50 - 212 ug/dL 10/25/2024 10:44 PM EDT [facility] % Iron Saturation SEE COMMENT 15.0 - 55.0 % 10/25/2024 10:44 PM EDT [facility] Comment:Unable to calculate result because contributing result outside reportable range.. TIBC SEE COMMENT 261 - 462 ug/dL 10/25/2024 10:44 PM EDT [facility] Comment:Unable to calculate result because contributing result outside reportable range.. Serum 10/25/2024 10:1 7 PM EDT 10/25/2024 10:17 PM EDT Aysha Gill MD LAB BLOOD ORDERABLES F inal Result Performing Organization Address [facility]/ZIP Co de Phone Number [facility] [address] [facility]. [address] * Hepatitis B Core Antibody (10/25/2024 10:17 PM EDT) Hep B Core Total Ab Nonreactive Nonreactive 10/25/2024 11:07 PM EDT [facility] Comment:Health Department no tified in [...] MD LAB BLOOD ORDERABLES F inal Result [facility] [address] [facility]. [address] * Hepatitis C Antibody (10/25/2024 10:17 PM EDT) Only the most recent of4 resultswithin the time period is included. HCV Ab Nonreactive Nonreactive 10/25/2024 11:16 PM EDT [facility] Comment:Health Department no tified in accordance with reportable infectious disease guidelines. Serum 10/25/2024 10:1 7 PM EDT 10/25/2024 10:17 PM EDT [facility] - 10/25/2024 11:16 PM EDT Antibodies to HCV not detected; does not exclude the possibility of exposure to HCV. us Aysha Gill MD LAB BLOOD ORDERABLES F inal Result Performing Organization Address [facility]/ZIP Co de Phone Number [facility] [address] [facility]. [address] * HIV 1+2 Antibody/Antigen with Reflex (10/25/2024 10:17 PM EDT) Only the most recent of2 resultswithin the time period is included. Pathologist [facility] [place] HIV 1+2 AB/AGN Nonreactive Nonreactive 10/25/2024 11:03 PM EDT [facility] Serum 10/25/2024 10:1 7 PM EDT 10/25/2024 10:16 PM EDT [facility] - 10/25/2024 11:03 PM EDT \HIVRNR Aysha Gill MD LAB BLOOD ORDERABLES F inal Result Performing Organization Address City/[facility]/ZIP Co de Phone Number [facility] [address] [facility]. [address] * (ABNORMAL) Hepatitis B Surface Antibody, Quantitati (10/25/2024 10:17 PM EDT) Only the most recent of3 resultswithin the time period is included. HBSAB NUMBER 10.70(H) 0.00 - 9.99 mIU/mL 10/25/2024 11:52 PM EDT [facility] Hep B S Ab Equivocal (A) Nonreactive 10/25/2024 11:52 PM EDT [facility] Serum 10/25/2024 10:1 7 PM EDT 10/25/2024 10:17 PM EDT Aysha Gill MD LAB BLOOD ORDERABLES F inal Result Performing Organization Address [facility]/ZIP Co de Phone Number [facility] [address] [facility]. [address] * Hepatitis B surface antigen (10/25/2024 10:17 PM EDT) Only the most recent of4 resultswithin the time period is included. Hep B Surface Ag Nonreactive Nonreactive 10/25/2024 11:12 PM EDT [facility] Comment:Health Department no tified in accordance with reportable infectious disease guidelines. Serum 10/25/2024 10:1 7 PM EDT 10/25/2024 10:17 PM EDT Narrative [facility] - 10/25/2024 11:12 PM EDT Specimen is considered negative for HBsAg. us Aysha Gill MD LAB BLOOD ORDERABLES F inal Result Performing Organization Address [facility] Co de Phone Number [facility] [address] [facility]. [address] * (ABNORMAL) APTT, NO ANTICOAGULANT (10/25/2024 10:17 PM EDT) aPTT 41.7(H) 25.5 - 35.0 seconds 10/25/2024 10:36 PM EDT [facility] Plasma 10/25/2024 10:1 7 PM EDT 10/25/2024 10:17 PM EDT us Aysha Gill MD LAB BLOOD ORDERABLES F inal Result [facility] [address] [facility]. [address] * PTH (10/25/2024 10:17 PM EDT) PTH 36.0 12.0 - 88.0 pg/mL 10/25/2024 11:01 PM EDT [facility] Serum 10/25/2024 10:1 7 PM EDT 10/25/2024 10:17 PM EDT Aysha Gill MD LAB BLOOD ORDERABLES F inal Result Performing Organization Address City/[facility]/ZIP Co de Phone Number [facility] [address] [place] [address]. [address] * (ABNORMAL) Ferritin (10/25/2024 10:17 PM EDT) Only the most recent of2 resultswithin the time period is included. Ferritin 623.2(H) 23.9 - 336.2 ng/mL 10/25/2024 11:02 PM EDT [facility] Serum 10/25/2024 10:1 7 PM EDT 10/25/2024 10:17 PM EDT Aysha Gill MD LAB BLOOD ORDERABLES F inal Result Performing Organization Address [facility] Co de Phone Number [facility] [address] [place] [address]. [address] * (ABNORMAL) Venous Blood Gas, Line/Syringe (10/25/2024 10:00 PM EDT) Only the most recent of5 resultswithin the time period is included. PH-Line Draw 7.38 7.32 - 7.42 10/25/2024 10:08 PM EDT [facility] PCO2-Line Draw 33(L) 41 - 51 mm Hg 10/25/2024 10:08 PM EDT [facility] PO2-Line Draw 33 25 - 40 mm Hg 10/25/2024 10:08 PM EDT [facility] HCO3-Line Draw 20(L) 24 - 28 mmol/L 10/25/2024 10:08 PM EDT [facility] CO2 Content-Line Draw 21(L) 25 - 29 mmol/L 10/25/2024 10:08 PM EDT [facility] Base Excess-Line Draw -5.0(L) -2.0 - 3.0 mmol/L 10/25/2024 10:08 PM EDT [facility] %HBO2-Line Draw 53.8 40.0 - 70.0 % 10/25/2024 10:08 PM EDT [facility] Carboxyhgb-Ludivina e Draw 1.9 % 10/25/2024 10:08 PM EDT [facility] Comment: CARBOXYHEMOGLOBIN (CO) REFERENCE RANGES: Non-Smokers: <2 % Smokers: <8 % TOXIC: >20 % Methemoglobin- Line Draw 0.2 0.0 - 1.5 % 10/25/2024 10:08 PM EDT [facility] Reduced Hemoglobin-Ludivina e Draw 44.1(H) 0.0 - 5.0 % 10/25/2024 10:08 PM EDT [facility] Venous, Line Draw 10/25/2024 10:00 PM EDT 10/25/2024 10:04 PM EDT us Aysha Gill MD LAB BLOOD ORDERABLES F inal Result [facility] [address] [place] [address], [facility] * Donor Specific Antibody (DSA) (10/25/2024 10:00 PM EDT) AntiDonor Antibodies The request and specimen(s) for this test have been received and transported to the [facility] at [address] [place] [address]. The [facility] will report results directly to the client. 10/25/2024 10:20 PM EDT [facility] Comment:Testing performed by [facility], [facility], [address] [place] [address]. The [facility] report has been forwarded to the appropriate ordering location. Please refer to this report for patient results. Serum 10/25/2024 10:0 0 PM EDT 10/25/2024 10:20 PM EDT us Aysha Gill MD LAB BLOOD ORDERABLES F inal Result Performing Organization Address [facility]/ZIP Co de Phone Number [facility] [address] [facility]. [address] * Hepatitis C RNA, Quant Reflex to Genotyp (10/25/2024 8:18 PM EDT) Pathologist [facility] [place] International Units Not Detected IU/mL 10/27/2024 11:03 AM EDT [facility] Comment:Test methodology for HCV RNA quantification is an FDA-approved nucleic acid amplification assay. The Lower Limit of Quantitation (LLOQ) is 15 IU/mL. The linear range of the assay is 15-100,000,000 IU/mL. The Limit of Detection (LoD) is 12.0 IU/mL for EDTA plasma. The reference range is Not Detected. IU log10 See Note log 10 IU/mL 10/27/2024 11:03 AM EDT [facility] Comment:HCV RNA not detected . Plasma 10/25/2024 8:18 PM EDT 10/25/2024 10:27 PM EDT us Aysha Gill MD LAB BLOOD ORDERABLES F inal Result Performing Organization Address [facility] de Phone Number [facility] [address] [facility]. [address] * Toxoplasma gondii antibody, IgG (10/25/2024 8:18 PM EDT) Only the most recent of2 resultswithin the time period is included. [facility] Toxoplasma Gondii IgG <3.0 0.0 - 7.1 IU/mL 10/27/2024 7:55 AM EDT [facility] Comment: Negative <7.2 Equivocal 7.2 - 8.7 Positive >8.7 Serum 10/25/2024 8:18 PM EDT 10/27/2024 8:06 AM EDT Narrative [facility] - 10/27/2024 8:06 AM EDT PERFORMED AT: [address] [id number] BOTTLE LABELER: Bassam Khalil, PhD PHONE: [phone] Aysha Gill MD LAB BLOOD ORDERABLES F inal Result Performing Organization Address City/[facility]/ZIP Co de Phone Number [facility] [address] [facility]. [address] * ABO/Rh (10/25/2024 7:46 PM EDT) Only the most recent of5 resultswithin the time period is included. ABO Grouping O 10/25/2024 10:23 PM EDT [facility] Rh Type Positive 10/25/2024 10:23 PM EDT [facility] Blood 10/25/2024 7:46 PM EDT 10/25/2024 9:54 PM EDT Ben Blake MD BLOOD BANK TEST ORDERABLES Fi nal Result Performing Organization Address [facility] Co de Phone Number [facility] [address] [facility]. [address] * Antibody Screen (10/25/2024 7:46 PM EDT) Only the most recent of3 resultswithin the time period is included. Antibody Screen Negative 10/25/2024 10:41 PM EDT [facility] Blood 10/25/2024 7:46 PM EDT 10/25/2024 9:54 PM EDT Narrative [facility] - 10/25/2024 10:44 PM EDT Testing performed by [facility] Transfusion Service Ben Blake MD BLOOD BANK TEST ORDERABLES Fi nal Result Performing Organization Address City/[facility]/ZIP Co de Phone Number [facility] [address] [facility]. [address] * Hox - HLA Antibody-Detailed Report (10/22/2024 12:32 PM EDT) 10/22/2024 12:3 2 PM EDT Abdulkadir Gaspar MD LAB BLOOD ORDERABLES Final Resul t Performing Organization Address [facility] Co de Phone Number [facility] [address] [place] [address] * HOX - HLA CROSSMATCH + Detailed Antibody (10/20/2024 5:04 PM EDT) 10/20/2024 5:04 PM EDT Abdulkadir Gaspar MD LAB BLOOD ORDERABLES Final Resul t Performing Organization Address [facility] Co de Phone Number [facility] [address] [facility] [place] [address] * Hox - ABO Typing Report (10/20/2024 5:03 PM EDT) 10/20/2024 5:03 PM EDT Abdulkadir Gaspar MD LAB BLOOD ORDERABLES Final Resul t Performing Organization Address [facility] de Phone Number [facility] [address] [facility] [place] [address] * X-ray Comparison Images (10/20/2024 9:10 AM EDT) Only the most recent of7 resultswithin the time period is included. Narrative EXTERNAL - 10/20/2024 9:10 AM EDT Images associated with this accession number were presented to us for comparison to an examination performed here. us Provider Not In System IMG DIAGNOSTIC IMAGING OR DERABLES Final Result Performing Organization Address [facility] de Phone Number EXTERNAL * PRA-HLA Ab Screen (Cytotoxic) (10/15/2024 6:08 AM EDT) [facility] The request and specimen(s) for this test have been received and transported to the [facility] at [address] [place] [address]. The [facility] will report results directly to the client. 10/15/2024 6:42 AM EDT [facility] Comment:The request and spec imen(s) for this test have been received and transported to the [facility] at [address] [place] [address]. The [facility] will report results directly to the client. Serum 10/15/2024 6:08 AM EDT 10/15/2024 6:42 AM EDT us Cosmo Pacheco MD LAB BLOOD ORDERABLES Final Resul t [facility] [address] [place] [address] * LEFT HEART CATH (10/14/2024 2:09 PM EDT) 10/14/2024 11:4 7 AM EDT Narrative [facility] - 10/14/2024 9:27 PM EDT *[facility]* Cardiac Molder Apprentice [facility] [address] CATHETERIZATION LAB STUDY Patient: Blair Anderson Age: [...] manner. 3. Right radial artery access. A 6Dq55mc Glidesheath - Slender - .021 sheath was [...] + !LV pressure s/d, ed !112/1, 22, dP/gi=8381su Hg/s! + + + !Aortic pressure s/d (m)!106/58 (75) ! + + + ATTESTATION: Dr. Matta was present for the entire procedure. Dr. Jay Quan was the initial author of this report. Prepared and electronically signed by Irving Matta MD [id number]:50 Procedure Note Irving Matta MD - 10/14/2024 *[facility]* Cardiac Molder Apprentice [address] [place] [address] CATHETERIZATION LAB STUDY Patient: Blair Anderson Age: [...] manner. 3. Right radial artery access. A 7Yc63zd Glidesheath - Slender - .021sheath was advanced [...] complications. Contrast: Omnipaque 350 25ml (total dose). Esemcstjd851 125ml (wasted). Radiation: Fluoroscopy time: 15min. Total [...] + !LV pressure s/d, ed !112/, 22, dP/aj=4177ic Hg/s! + + + !Aortic pressure s/d (m)!106/58 (75) ! + + + ATTESTATION: Dr. Matta was present for the entire procedure. Dr. Jay Quan wasthe initial author of this report. Prepared and electronically signed by Irving Matta MD [id number]:50 [place] [id number] Final Result [facility] * Cardiac Cath Documents [...] INTRAVENOUS SYRINGE ([facility]) administered intravenously COMPARISON: CT 09/03/2024. Ultrasound 10/07/2024. [...] INTRAVENOUS SYRINGE ([facility])administered intravenously COMPARISON: CT 09/03/2024. Ultrasound 10/07/2024. Outside [...] - 90 ug/dL 10/13/2024 7:16 AM EDT [facility] Comment: HEMOLYSIS EVIDENT. RESULTS MAY BE INFLUENCED. Critical Result [id number] Called to and read back by: KEY MELO RN at: 10/13/2024 07:15:55 by:NISREEN Plasma 10/13/2024 5:35 AM EDT 10/13/2024 6:19 AM EDT us Ellis Mays DO LAB BLOOD ORDERABLES Final Resul t Performing Organization Address City/[facility]/ZIP Co de Phone Number [facility] [address] [facility]. [address] * Vancomycin, random (10/11/2024 3:02 AM EDT) Only the most recent of5 resultswithin the time period is included. Vancomycin Random 13.4 ug/mL 10/11/2024 3:37 AM EDT [facility] Comment:Reference range not established for this test. Plasma 10/11/2024 3:02 AM EDT 10/11/2024 3:08 AM EDT us Jodi FreireD LAB BLOOD ORDERABLES Final Result Performing Organization Address City/[facility]/ZIP Co de Phone Number [facility] [address] [facility]. [address] * IR Paracentesis incl imaging guide [...] diagnostic and therapeutic paracentesis. Bakari Wahl CNP, Knuckle Strap Sewer Procedure and Findings: The procedure was performed [...] Using ultrasound guidance, a 10 cm, 5-F InfoBionic Centesis catheter was placed into the right [...] for diagnostic andtherapeutic paracentesis. Bakari Wahl CNP, Knuckle Strap Sewer Procedure and Findings: The procedure was performed [...] Using ultrasound guidance, a 10 cm, 5-F InfoBionic Centesis catheter was placedinto the right lower [...] is included. Gram Stain Result Cytospin Results: [facility] Gram Stain Result Polymorphonuclear Leukocytes Seen; [facility] Gram Stain Result No Organisms Seen; [facility] Culture Result No Growth After 5 Days [facility] Fluid ABDOMEN / Unknown 10/10/2024 1:51 PM EDT 10/10/2024 3:56 PM EDT Gerri Peterson MD MICROBIOLOGY - GENERAL ORDERABL ES Final Result Performing Organization Address [facility] Co de Phone Number [facility] [address] * (ABNORMAL) Body fluid cell count (10/10/2024 1:51 PM EDT) Only the most recent of4 resultswithin the time period is included. Color, Fluid Yellow(A) Colorless, Pale Yellow 10/10/2024 5:29 PM EDT [facility] Clarity, Fluid Clear 10/10/2024 5:29 PM EDT [facility] Neutrophil %, Fluid 9 % 10/10/2024 5:29 PM EDT [facility] Lymphocytes %, Fluid 13 % 10/10/2024 5:29 PM EDT [facility] Mesothelial %, Fluid 6 % 10/10/2024 5:29 PM EDT [facility] Macrophage %, Fluid 72 % 10/10/2024 5:29 PM EDT [facility] RBC, Fluid 2,662 /uL 10/10/2024 4:41 PM EDT [facility] Total Nucleated Cells, Fluid 89 /uL 10/10/2024 4:41 PM EDT [facility] Comment:Total Nucleated Cell s represent WBCs and other nucleated cells in the fluid such as lining cells. Ascitic Fluid ABDOMEN / Unknown 1:51 PM EDT 10/10/2024 3:56 PM EDT Gerri Peterson MD BODY FLUIDS AND STOOLS ORDERABL ES Final Result Performing Organization Address City/[facility]/ZIP Co de Phone Number [facility] [address] * UPPER GI ENDOSCOPY (10/10/2024 11:48 AM EDT) 10/10/2024 11:4 8 AM EDT Narrative [facility] - 10/10/2024 12:34 PM EDT [id number] Procedure Date: 10/10/2024 11:48 AM Patient Name: Blair Anderson Date of : 1985 Admit Type: Inpatient Age: 39 Gender: Male Note Status: Finalized Attending MD: Lino Soto MD, [id number] Procedure: Upper GI endoscopy Indications: Gastroesopahgeal variceal [...] verified by the physician, the nurse, the paraffiner and the test cell technician in the pre-procedure area in [...] to hypotension Procedure Code(s): --- Professional --- 00677, GC, Esophagogastroduodenoscopy, flexible, transoral; diagnostic, including collection of specimen(s) by brushing or washing, when performed (separate procedure) Diagnosis Code(s): --- Professional --- 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 All rights reserved. The codes documented in this report are preliminary and upon prepress stripper review may be revised to meet current [...] 12:10:16 PM Scope Out: 12:17:[address] [place] [address], [facility] us Provider Not In System PROCEDURE/MINOR SURGICAL ORDERABLES Final Result Performing Organization Address City/State/[facility] Co de Phone Number [facility] * ECHO STRESS W/ CONTRAST (10/09/2024 4:37 PM EDT) Anatomical Region Laterality Modality Chest Ultrasound 10/09/2024 2:40 PM EDT Narrative 10/09/2024 6:45 PM EDT * [facility]* [address] [place] [address] Stress Echocardiogram Patient: Blair Anderson Room: 8142 Height: 76in MR Number: [id number] : 1985 Weight: 262lb Account: [id number] Gender: M BP: 125 / 77 Study Date: 10/09/2024 Age: 39 BSA: 2.48m^2 Referring physician: Gerri Peterson Interpreting physician: Tonya Henriquez MD FELLOW Lisa Jha MD PERFORMING Tonya Henriquez MD [employer] OPERATOR [employer] ORDERING Gerri Peterson REFERRING [...] was augmented by the addition of hand skiver hand and leg lifts. The infusion was [...] at baseline or with provocation, shows no sdlhr-bf-ihtc atrial level shunt. - Pulmonary arteries: Systolic [...] at baseline or with provocation, shows no rnukr-ur-dcff atrial level shunt. Pulmonary artery: - Systolic [...] at baseline or with provocation, shows no vhmwx-tq-byac atrial level shunt. Pericardium: - There is [...] peak heart rate and blood pressure was 89980cn Hg/min. Stress testing did not produce any [...] Reviewed and confirmed by Tonya Henriquez MD [id number]:20 Procedure Note Tonya Henriquez MD - 10/09/2024 * [facility]* [address] [place] [address] Stress Echocardiogram Patient: Blair Anderson Room: 8142 Height: 76in MR Number: [id number] : 1985 Weight: 262lb Account: [id number] Gender: M BP: 125 / 77 Study Date: 10/09/2024 Age: 39 BSA: 2.48m^2 Referring physician: Gerri Peterson Interpreting physician: Tonya Henriquez MD FELLOW Lisa Jha MD PERFORMING Tonya Henriquez MD [employer] OPERATOR [employer] Askanda REFERRING Gerri Peterson [...] was augmented by the addition of hand skiver hand and leg lifts. The infusion was [...] at baseline or with provocation, shows no ykthd-zi-mgfx atrial level shunt. - Pulmonary arteries: Systolic [...] study at baseline or with provocation, showsno evxmo-fb-gvkp atrial level shunt. Pulmonary artery: - Systolic [...] at baseline or with provocation, shows no dndtm-hj-jdbw atrial level shunt. Pericardium: - There is [...] heart rate). The maximal predicted heart rate [id number]. The target heart rate was 152bpm. The target heart rate was achieved.The heart rate response to stress is normal. There is a normal resting blood pressure with an appropriate response to stress. The rate-pressureproduct for the peak heart rate and blood pressure was 57783tz Hg/min. Stress testing did not produce any [...] Reviewed and confirmed by Tonya Henriquez MD [id number]:20 us Gerri Peterson MD CV ECHO ORDERABLES Final Result * Renal Tx Recipient (10/09/2024 4:59 AM EDT) Renal Transplant Recipient The request and specimen(s) for this test have been received and transported to the [facility] at [address] [place] [address]. The [facility] will report results directly to the client. 10/09/2024 7:26 AM EDT [facility] Blood 10/09/2024 4:59 AM EDT 10/09/2024 7:26 AM EDT us Aaron Gonzalez MD LAB BLOOD ORDERABLES Final Resu lt [facility] [address] * (ABNORMAL) MMR(IgG) Panel (Measles, Mumps, Rubella) (10/08/2024 10:25 AM EDT) Only the most recent of2 resultswithin the time period is included. Mumps IgG Positive 10/08/2024 11:39 AM EDT [facility] MUMPS IGG NUM 99.00(H) 0.0 - 8.9 U/mL 10/08/2024 11:39 AM EDT [facility] Rubella IgG Scr Positive 10/08/2024 11:40 AM EDT [facility] RUB NUM 4.15(H) 0.00 - 0.89 INDEX 10/08/2024 11:40 AM EDT [facility] Rubeola Ab, IgG Positive 10/08/2024 11:39 AM EDT [facility] RUB IGG NUM 273.00(H) 0.00 - 13.40 U/mL 10/08/2024 11:39 AM EDT [facility] Serum 10/08/2024 10:2 5 AM EDT 10/08/2024 10:49 AM EDT Narrative [facility] - 10/08/2024 11:40 AM EDT [...] MD LAB BLOOD ORDERABLES Final Resu lt [facility] [address] [place] [address], [facility] * QuantiFERON TB2 Ag (10/08/2024 10:25 AM EDT) QuantiFERON TB2 Ag Value 0.07 10/10/2024 10:41 AM EDT [facility] Plasma 10/08/2024 10:2 5 AM EDT 10/08/2024 11:05 AM EDT Gerri Peterson MD LAB BLOOD ORDERABLES Final Resu lt [facility] [address] [facility]. [address] * QuantiFERON TB1 Ag (10/08/2024 10:25 AM EDT) QuantiFERON TB1 Ag Value 0.06 10/10/2024 10:41 AM EDT [facility] Plasma 10/08/2024 10:2 5 AM EDT 10/08/2024 11:05 AM EDT Gerri Peterson MD LAB BLOOD ORDERABLES Final Resu lt Performing Organization Address [facility] Co de Phone Number [facility] [address] [facility]. [address] * QuantiFERON Nil (10/08/2024 10:25 AM EDT) QuantiFERON Nil 0.06 10:41 AM EDT [facility] Plasma 10/08/2024 10:2 5 AM EDT 10/08/2024 11:05 AM EDT Result [facility] Gerri Peterson MD LAB BLOOD ORDERABLES Final Resu lt Performing Organization Address City/[facility] Co de Phone Number [facility] [address] [facility]. [address] * QuantiFERON Mitogen (10/08/2024 10:25 AM EDT) QuantiFERON Interpretation Negative Negative 10/10/2024 10:41 AM EDT [facility] Comment:Negative result geovanny cates M. tuberculosis infection is NOT likely. Negative results do not preclude tuberculosis infection (especially in immunosuppressed patients). Negative results have a TB antigen minus Nil value less than 0.35 IU/mL. In cases with high suspicion of disease, retesting or additional testing with medical evaluation may be useful. QuantiFERON Mitogen 4.87 10/10 10:41 AM EDT [facility] Plasma 10/08/2024 10:2 5 AM EDT 10/08/2024 11:05 AM EDT Narrative [facility] - 10/10/2024 10:41 AM EDT [...] MD LAB BLOOD ORDERABLES Final Resu lt [facility] [address] * (ABNORMAL) Vitamin D 25 Hydroxy (10/08/2024 10:25 AM EDT) Vit D, 25-Hydroxy 7.1(L) 30.0 - 100.0 ng/mL 10/08/2024 11:36 AM EDT [facility] Comment: Vitamin D deficiency has been defined by the [place] [employer] (IOM) and an Endocrine Society [...] ORDERABLES Final Resu lt Performing Organization Address [facility]/ZIP Co de Phone Number [facility] [address] [place] [address] * Reticulocyte Count, Auto (10/08/2024 7:41 AM EDT) Retic Ct Pct 1.35 0.50 - 2.00 % 10/08/2024 9:12 AM EDT [facility] Retic Ct Abs 26,190 25,000 - 90,000 /uL 10/08/2024 9:14 AM EDT [facility] Immature Retic Fract 0.37 0.09 - 0.56 10/08/2024 9:12 AM EDT [facility] Whole Blood 10/08/2024 7:41 AM EDT 10/08/2024 8:51 AM EDT us Gómez Blanchard MD LAB BLOOD ORDERABLES Final Res ult Performing Organization Address [facility] Co de Phone Number [facility] [address] * (ABNORMAL) Haptoglobin (10/08/2024 7:41 AM EDT) Haptoglobin <30(L) 44 - 215 mg/dL 10/08/2024 8:53 AM EDT [facility] Serum 10/08/2024 7:41 AM EDT 10/08/2024 7:51 AM EDT Kush Posada MD, PhD LAB BLOOD ORDERABLES Final Result Performing Organization Address [facility] Co de Phone Number [address] * (ABNORMAL) Lactate dehydrogenase (10/08/2024 5:36 AM EDT) LD 102(L) 110 - 270 U/L 10/08/2024 8:20 AM EDT [facility] Plasma 10/08/2024 5:36 AM EDT 10/08/2024 7:58 AM EDT Gómez Blanchard MD LAB BLOOD ORDERABLES Final Res ult [facility] [address] [place] [address], [facility] * Enteric Pathogen Panel (10/07/2024 10:50 PM EDT) Only the most recent of2 resultswithin the time period is included. Campylobacter Group (C. ecoli, C. jejuni, C. trino) Not Detected Not Detected 10/08/2024 4:40 AM EDT [facility] Salmonella species Not Detected Not Detected 10/08/2024 4:40 AM EDT [facility] Shigella species Not Detected Not Detected 10/08/2024 4:40 AM EDT [facility] Vibrio Group (Vibrio cholerae, Vibrio parahaemolyticus) Not Detected Not Detected 10/08/2024 4:40 AM EDT [facility] Yersinia enterocolitica Not Detected Not Detected 10/08/2024 4:40 AM EDT [facility] Shiga toxin 1 Not Detected Not Detected 10/08/2024 4:40 AM EDT [facility] Shiga toxin 2 Not Detected Not Detected 10/08/2024 4:40 AM EDT [facility] Norovirus Not Detected Not Detected 10/08/2024 4:40 AM EDT [facility] Rotavirus Not Detected Not Detected 10/08/2024 4:40 AM EDT [facility] Comment: The Enteric Pathogen Panel [...] FLUIDS AND STOOLS ORDERABLE S Final Result [facility] [address] * Urine Drug Confirmation (10/07/2024 10:50 PM EDT) Only the most recent of2 resultswithin the time period is included. BARBITURATES NOT PRESENT 10/09/2024 1:33 PM EDT [facility] BENZODIAZEPINES PRESENT 1:33 PM EDT [facility] Nordiazepam 3 ng/mL 10/09/2024 1:33 PM EDT [facility] Temazepam 6 ng/mL 10/09/2024 1:33 PM EDT [facility] CANNABINOIDS NOT PRESENT 10/09/2024 1:33 PM EDT [facility] BURIAL AGENT STIMULANTS NOT PRESENT 1:33 PM EDT [facility] OPIOID ANALGESICS PRESENT 025 1:33 PM EDT [facility] Oxycodone 300 ng/mL 10/09/2024 1:33 PM EDT [facility] Oxymorphone 32 ng/mL 10/09/2024 1:33 PM EDT [facility] Tramadol >1000 ng/mL 10/09/2024 1:33 PM EDT [facility] OPIOID ANTAGONISTS NOT PRESENT 10/09 1:33 PM EDT [facility] SEDATIVES/MUSCLE RELAXANTS NOT PRESENT 10/09/2024 1:33 PM EDT [facility] TRICYCLIC ANTIDEPRESSANTS NOT PRESENT 10/09/2024 1:33 PM EDT [facility] Urine 10/07/2024 10:5 0 PM EDT 10/08/2024 3:00 AM EDT us Gerri Peterson MD URINE ORDERABLES Final Result [facility] [address] [facility] [place] [address], [place] * Giardia Cryptosporidium Antigens (10/07/2024 10:50 PM [...] MICROBIOLOGY - GENERAL ORDERABLE S Final Result [facility] [address] [facility] [place] [address], [facility] * Comprehensive Drug Screen (10/07/2024 10:50 PM EDT) Only the most recent of2 resultswithin the time period is included. Creatinine, Ur CANCELED mg/dL 10/08/2024 7:09 AM EDT [facility] Comment:The released value 8 7.30 was canceled by YAQUELIN on 10/08/2024 07:09 BARBITURATES CANCELED [facility] Butalbital CANCELED [facility] Phenobarbital CANCELED [facility] Secobarbital CANCELED [facility] BENZODIAZEPINES CANCELED [facility] Alprazolam CANCELED [facility] Clonazepam CANCELED [facility] Diazepam CANCELED [facility] Alpha-Hydroxyalprazo mcknight CANCELED [facility] Lorazepam CANCELED [facility] Midazolam CANCELED [facility] Nordiazepam CANCELED [facility] Oxazepam CANCELED [facility] Temazepam CANCELED [facility] CANNABINOIDS CANCELED [facility] THC-COOH CANCELED [facility] BURIAL AGENT STIMULANTS CANCELED [facility] Cocaine Metabolite(benzoylec gonine) CANCELED [facility] Amphetamine CANCELED [facility] Methamphetamine [facility]ED [facility] MDA [facility] MDEA CANCELED [facility] Phencyclindine (PCP) CANCELED [facility] OPIOID ANALGESICS CANCELED [facility] Heroin Metabolite(6-RAMONA) CANCELED [facility] Codeine CANCELED [facility] Morphine CANCELED [facility] Hydrocodone [facility]ELED [facility] Hydromorphone [facility] Oxycodone CANCELED [facility] Oxymorphone [facility] Meperidine CANCELED [facility] Normeperidine [facility]ELED [facility] Methadone CANCELED [facility] Methadone Metabolite (EDDP) CANCELED [facility] Tramadol CANCELED [facility] Fentanyl CANCELED [facility] Norfentanyl [facility] Sufentanil CAN[facility] OPIOID ANTAGONISTS CANCELED [facility] Buprenorphine CAN[facility]EL[facility] Norbuprenorphine CANCELED [facility] Naltrexone CANCELED [facility] Naloxone CANCELED [facility] SEDATIVES/MUSCLE RELAXANTS CANCELED [facility] Carisoprodol CANCELED [facility] Meprobamate [facility] TRICYCLIC ANTIDEPRESSANTS CANCELED [facility] Amitriptyline [facility]ED [facility] Clomipramine [facility]ELED [facility] Desipramine [facility] Doxepin CANCELED [facility] Imipramine CANCELED [facility] Nortriptyline CANCELED [facility] Urine Creatinine CANCELED mg/dL [facility] Nitrite CANCELED [facility] Glutaraldehyde CANCELED [facility] pH CANCELED 10/08/2024 7:09 AM EDT [facility] Comment:The released value 5 .6 was canceled by YAQUELIN on 10/08/2024 07:09 Specific [place] CANCELED 10/09/19 7:09 AM EDT [facility] Comment:The released value 1 .009 was canceled by YAQUELIN on 10/08/2024 07:09 Bleach CANCELED [facility] Pyridinium Chlorochromate CANCELED [facility] Urine 10/07/2024 10:5 0 PM EDT 10/08/2024 2:07 AM EDT Narrative [facility] - 10/08/2024 7:09 AM EDT See accn [id number] us Gerri Peterson MD URINE ORDERABLES Edited Result - Final [facility] [address] [place] [id number], [facility] * (ABNORMAL) Urine Drug Screen Reflex to Confirmation (10/07/2024 10:50 PM EDT) Only the most recent of2 resultswithin the time period is included. Amphetamine, 500 ng/mL Cutoff Negative Negative 10/08/2024 3:00 AM EDT [facility] Barbiturates UR, 300 ng/mL Cutoff Negative Negative 10/08/2024 3:00 AM EDT [facility] Buprenorphine, 5 ng/mL Cutoff Negative Negative 10/08/2024 3:00 AM EDT [facility] Benzodiazepines UR, 300 ng/mL Cutoff Negative Negative 10/08/2024 3:00 AM EDT [facility] Cocaine UR, 300 ng/mL Cutoff Negative Negative 10/08/2024 3:00 AM EDT [facility] Methadone, UR, 300 ng/mL Cutoff Negative Negative 10/08/2024 3:00 AM EDT [facility] Opiates UR, 300 ng/mL Cutoff Negative Negative 10/08/2024 3:00 AM EDT [facility] Oxycodone, 100 ng/mL Cutoff Presumptive Positive(A) Negative 10/08/2024 3:00 AM EDT [facility] Tricyclic Antidepressants, 300 ng/mL Cutoff Negative Negative 10/08/2024 3:00 AM EDT [facility] Comment:This test has been d eveloped and its performance characteristics determined by [facility] [...] Cutoff Negative Negative 10/08/2024 3:00 AM EDT [facility] Comment:This is a screening method only and may be associated with false positive and/or false negative results. Results are not definitive without additional confirmatory testing by mass spectrometry. Fentanyl, 2 ng/mL Cutoff Negative Negative 10/08/2024 3:00 AM EDT [facility] Comment:This test has been d eveloped and its performance characteristics determined by [facility] [...] PM EDT 10/08/2024 2:08 AM EDT Narrative [facility] - 10/08/2024 3:00 AM EDT CONFIRMATION TO FOLLOW Gerri Peterson MD URINE ORDERABLES Final Result Performing Organization Address City/[facility]/ZIP Co de Phone Number [facility] [address] * Ova and Parasite Comprehensive w/ Giardia/Crypto (10/07/2024 10:50 PM EDT) Pathologist [facility] [place] O & P Method: Concentration and Trichrome Stain [facility] Results No Amoeba, Ova, Or Parasites Seen. -- O and P examination of additional specimens is recommended only for symptomatic patients, immunosuppressed patients or those with an appropriate travel history. [facility] Feces FECES / Unknown 10/07/2024 1 0:50 PM EDT 10/08/2024 1:53 AM EDT Comment:F Bisi Hernandez DO MICROBIOLOGY - GENERAL ORDERABLE S Final Result Performing Organization Address City/[facility]/ZIP Co de Phone Number [facility] [address] * Hepatitis A IgM (10/07/2024 6:38 PM EDT) Only the most recent of3 resultswithin the time period is included. Hep A IgM Nonreactive Nonreactive 10/07/2024 7:46 PM EDT [facility] Serum 10/07/2024 6:38 PM EDT 10/07/2024 6:52 PM EDT Narrative [facility] - 10/07/2024 7:46 PM EDT IgM anti-HAV not detected. Does not exclude the possibility of exposure to or infection with HAV. Levels of IgM anti-HAV may be below the cut-off in early infection. Gerri Peterson MD LAB BLOOD ORDERABLES Final Resu lt Performing Organization Address [facility] Co de Phone Number [facility] [address] [facility]. [address] * Syphilis Screening (Trepia) (10/07/2024 6:37 PM EDT) Treponema Pallidum Negative Negative 10/07/2024 8:27 PM EDT [facility] Comment: No serological evidence of infection with Treponema pallidum (incubating or early primary syphilis cannot be excluded). Serum 10/07/2024 6:37 PM EDT 10/07/2024 6:50 PM EDT Gerri Peterson MD LAB BLOOD ORDERABLES Final Resu lt Performing Organization Address [facility] Co de Phone Number [facility] [address] [facility]. [address] * Phosphatidylethanol Confirmation, B (10/07/2024 6:37 PM EDT) Only the most recent of4 resultswithin the time period is included. PETH 16:0/18.1 (POPETH) <10 Cutoff: 10 ng/mL 10/10/2024 10:42 AM EDT [facility] Comment: Phosphatidylethanol (PEth) homologues result [...] Cutoff: 10 ng/mL 10/10/2024 10:42 AM EDT [facility] Comment: PEth 16:0/18:2 (PLPEth) Reference ranges are not well established PEth Interpretation Negative. 10/10 10:42 AM EDT [facility] Comment: ADDITIONAL INFORMATION This report [...] Drug Administration. Test Performed by: [facility] [place] [address] Theology Professor: Kathy Ortiz Ph.D.; CLIA# [id number] Whole Blood 10/07/2024 6:37 PM EDT 10/10/2024 10:42 AM EDT us Gerri Peterson MD LAB BLOOD ORDERABLES Final Resu lt [facility] [address] * (ABNORMAL) CMV IgG Antibody (10/07/2024 6:37 PM EDT) CMV IgG Positive(A ) Negative 10/07/2024 8:26 PM EDT [facility] CMV IGG NUM 8.40(H) 0.00 - 0.59 U/mL 10/07/2024 8:26 PM EDT [facility] Serum 10/07/2024 6:37 PM EDT 10/07/2024 6:50 PM EDT us Gerri Peterson MD LAB BLOOD ORDERABLES Final Resu lt [facility] [address] [place] [address], [facility] * (ABNORMAL) Alpha 1 Antitrypsin AAT Quant & Mutation (10/07/2024 6:37 PM EDT) A-1 Antitrypsin 99(L) 101 - 187 mg/dL 10/09/2024 4:28 AM EDT [facility] A-1 Antitrypsin Pheno Comment 10/10/2024 4:05 PM EDT [facility] Comment: A1A Phenotype is consistent with a heterozygous phenotype consisting of one M (normal) allele and one allele that cannot be identified at this time. The unknown allele is not consistent with Z (deficient), S (deficient), or F (deficient). MM Phenotype is considered to be normal , producing normal serum levels of [id number] inhibitor and not associated with clinical disease. [...] - 10/10/2024 4:08 PM EDT PERFORMED AT: [facility] [id number] BOTTLE LABELER: Bassam Khalil, PhD PHONE: [phone] PERFORMED AT: [address] [id number] BOTTLE LABELER: Mandy Abdul MD PHONE: [phone] Gerri Peterson MD LAB BLOOD ORDERABLES Final Resu lt Performing Organization Address City/[facility]/ZIP Co de Phone Number [facility] [address] [facility]. [address] * Strongyloides Ab (10/07/2024 6:37 PM EDT) Strongyloides Ab Negative Negative 10/11/19 11:51 AM EDT [facility] Serum 10/07/2024 6:37 PM EDT 10/10/2024 12:07 PM EDT Narrative [facility] - 10/10/2024 12:07 PM EDT PERFORMED AT: [address] [id number] BOTTLE LABELER: Manyd Abdul MD PHONE: [phone] Gerri Peterson MD LAB BLOOD ORDERABLES Final Resu lt Performing Organization Address [facility] Co de Phone Number [facility] [address] [facility]. [address] * Ethanol, Serum (10/07/2024 6:37 PM EDT) Only the most recent of3 resultswithin the time period is included. Ethanol <10 0 - 10 mg/dL 10/07/2024 8:36 PM EDT [facility] Serum 10/07/2024 6:37 PM EDT 10/07/2024 6:50 PM EDT Gerri Peterson MD LAB BLOOD ORDERABLES Final Resu lt Performing Organization Address City/[facility]/ZIP Co de Phone Number [facility] [address] [facility]. [address] * Katie-Watkins virus early antigen antibody, IgG (10/07/2024 6:37 PM EDT) EBV Early Antigen Ab, IgG <9.0 0.0 - 8.9 U/mL 10/09/2024 2:16 PM EDT [facility] Comment: Negative < 9.0 Equivocal 9.0 - 10.9 Positive >10.9 Serum Frozen 10/07/2024 6:37 PM EDT 10/09/2024 3:07 PM EDT Narrative [facility] - 10/09/2024 3:07 PM EDT PERFORMED AT: [facility] [id number] BOTTLE LABELER: Bassam Khalil, PhD PHONE: [phone] Gerri Peterson MD LAB BLOOD ORDERABLES Final Resu lt Performing Organization Address [facility] de Phone Number [facility] [address] [place] [address] * (ABNORMAL) Varicella zoster antibody, IgG (10/07/2024 6:37 PM EDT) Varicella IgG Positive( A) Negative S/CO 10/07/2024 8:34 PM EDT [facility] Comment:Result indicates the presence of detectable VZV IgG antibodies. A positive result is generally indicative of exposure to the pathogen or administration of specific immunoglobulins, but it is no indication of active infection or stage of disease. This test is not approved for determining vaccine-induced immunity to varicella zoster virus. VZV NUM 6.76(H) 0.00 - 0.99 S/CO 10/07/2024 8:34 PM EDT [facility] Serum 10/07/2024 6:37 PM EDT 10/07/2024 6:50 PM EDT Gerri Peterson MD LAB BLOOD ORDERABLES Final Resu lt Performing Organization Address [facility] Co de Phone Number [facility] [address] * TSH (Thyroid Stimulating Hormone) (10/07/2024 6:37 PM EDT) Only the most recent of2 resultswithin the time period is included. TSH 0.81 0.45 - 4.12 uIU/mL 10/07/2024 8:17 PM EDT [facility] Serum 10/07/2024 6:37 PM EDT 10/07/2024 6:50 PM EDT Gerri Peterson MD LAB BLOOD ORDERABLES Final Resu lt Performing Organization Address [facility] Co de Phone Number [facility] [address] [facility]. [address] * IgA (10/07/2024 6:37 PM EDT) Pathologist [facility] [place] IgA 227.0 70.0 - 400.0 mg/dL 10/08/2024 11:07 AM EDT [facility] Comment:Please interpret the se findings in conjunction with clinical findings, protein electrophoresis, and immunotyping/immunofixation results. Serum 10/07/2024 6:37 PM EDT 10/07/2024 6:50 PM EDT Gerri Peterson MD LAB BLOOD ORDERABLES Final Resu lt Performing Organization Address [facility] Co de Phone Number [facility] [address] [facility]. [address] * (ABNORMAL) Lipid Profile (10/07/2024 6:37 PM EDT) Pathologist [facility] [place] Non-HDL Cholesterol, Calculated See Note 0 - 129 mg/dL 10/07/2024 7:42 PM EDT [facility] Comment: Desirable: < 130 mg/dL Above Desirable: 130-159 mg/dL Borderline High: 160-189 mg/dL High: 190-219 mg/dL Very High: > 219 mg/dL Unable to calculate result either because contributing result(s) are outside of reportable range or are not available. Cholesterol, Total <25 0 - 200 mg/dL 10/07/2024 7:42 PM EDT [facility] Triglycerides 30 10 - 149 mg/dL 10/07/2024 7:42 PM EDT [facility] HDL 4(L) 60 - 92 mg/dL 10/07/2024 7:42 PM EDT [facility] Comment: LIPID PROFILE INTERPRETATION CHOLESTEROL,TOTAL(mg/dL) [...] Cholesterol See Note mg/dL 7:42 PM EDT [facility] Comment:Unable to calculate result either because contributing result(s) are outside of reportable range or are not available. Plasma 10/07/2024 6:37 PM EDT 10/07/2024 7:06 PM EDT Narrative [facility] - 10/07/2024 7:42 PM EDT LDL cholesterol calculated using the Friedewald equation. us Gerri Peterson MD LAB BLOOD ORDERABLES Final Resu lt [facility] [address] * X-ray Mandible minimum 4-views (10/07/2024 [...] EXAM: US ABDOMEN COMPLETE EXAM: US DUPLEX [id number] COMPLETE INDICATION: elevated bilirubin COMPARISON: Ultrasound and [...] EXAM: US ABDOMEN COMPLETE EXAM: US DUPLEX [id number] COMPLETE INDICATION: elevated bilirubin COMPARISON: Ultrasound and [...] 10/07/2024 4:26 PM EDT Bisi Hernandez DO [facility] US ORDERABLES Final Result * AFP Tumor Marker (10/07/2024 6:00 AM EDT) Only the most recent of3 resultswithin the time period is included. AFP-Tumor Marker 2.0 0.0 - 9.0 ng/mL 10/07/2024 7:11 AM EDT [facility] Serum 10/07/2024 6:00 AM EDT 10/07/2024 6:39 AM EDT Narrative [facility] - 10/07/2024 7:11 AM EDT The testing method for AFP is a chemiluminescent immunoassay manufactured by [employer] Concentrations of AFP obtained by different assay methods or kits may vary and cannot be used interchangeably. AFP results cannot be interpreted as absolute evidence of the presence or absence of malignant disease. Ni Rivera MD LAB BLOOD ORDERABLES Final Resul t [facility] [address] [place] [address], [facility] * Osmolality (10/06/2024 2:50 PM EDT) Osmolality, Measured 304 278 - 305 mOsm/kg 10/06/2024 3:49 PM EDT [facility] Serum 10/06/2024 2:50 PM EDT 10/06/2024 2:56 PM EDT us Jani Vanegas MD LAB BLOOD ORDERABLES Final Resul t [facility] [address] [place] [address], [facility] * CT Head WO contrast (10/06/2024 [...] Ur <10 mmol/L 10/06/2024 1:56 PM EDT [facility] Comment:Reference range not established for this test. Urine 10/06/2024 1:25 PM EDT 10/06/2024 1:32 PM EDT Result [facility] Jani Vanegas MD URINE ORDERABLES Final Result Performing Organization Address [facility] de Phone Number [facility] [address] [place] [address] * Potassium, urine, random (10/06/2024 1:25 PM EDT) Only the most recent of3 resultswithin the time period is included. Potassium Urine Random 50.0 mmol/L 10/06/2024 1:56 PM EDT [facility] Comment:Reference range not established for this test. Urine 10/06/2024 1:25 PM EDT 10/06/2024 1:32 PM EDT Jani Vanegas MD URINE ORDERABLES Final Result Performing Organization Address [facility] Co de Phone Number [facility] [address] * Osmolality, Urine (10/06/2024 1:25 PM EDT) Osmolality, Ur 386 50 - 1,200 mOsm/kg 10/06/2024 1:55 PM EDT [facility] Urine 10/06/2024 1:25 PM EDT 10/06/2024 1:32 PM EDT us Jani Vanegas MD URINE ORDERABLES Final Result Performing Organization Address [facility] Co de Phone Number [facility] [address] * Creatinine, Urine, Random (10/06/2024 1:25 PM EDT) Only the most recent of2 resultswithin the time period is included. Creatinine, Urine 87.40 mg/dL 10/06/2024 1:56 PM EDT [facility] Comment:Reference range not established for this test. Urine 10/06/2024 1:25 PM EDT 10/06/2024 1:32 PM EDT us Jani Vanegas MD URINE ORDERABLES Final Result Performing Organization Address [facility] de Phone Number [facility] [address] [facility]. [address] * Chloride, urine, random (10/06/2024 1:25 PM EDT) Only the most recent of3 resultswithin the time period is included. Chloride, Ur <15 mmol/L 10/06/2024 1:56 PM EDT [facility] Comment:Reference range not established for this test. Urine 10/06/2024 1:25 PM EDT 10/06/2024 1:32 PM EDT us Jani Vanegas MD URINE ORDERABLES Final Result Performing Organization Address [facility] Co de Phone Number [facility] [address] * (ABNORMAL) Comprehensive Metabolic Panel (10/06/2024 7:37 AM EDT) Only the most recent of5 resultswithin the time period is included. Sodium 129(L) 133 - 146 mmol/L 10/06/2024 8:16 AM EDT [facility] Potassium 4.4 3.5 - 5.3 mmol/L 10/06/2024 8:16 AM EDT [facility] Chloride 100 98 - 110 mmol/L 10/06/2024 8:16 AM EDT [facility] CO2 18(L) 21 - 33 mmol/L 10/06/2024 8:16 AM EDT [facility] Anion Gap 11 3 - 16 mmol/L 10/06/2024 8:16 AM EDT [facility] BUN 62(H) 7 - 25 mg/dL 10/06/2024 8:16 AM EDT [facility] Creatinine 3.40(H) 0.60 - 1.30 mg/dL 10/06/2024 8:16 AM EDT [facility] Glucose 98 70 - 100 mg/dL 10/06/2024 8:16 AM EDT [facility] Calcium 9.5 8.6 - 10.3 mg/dL 10/06/2024 8:16 AM EDT [facility] Total Bilirubin 14.3(H) 0.0 - 1.5 mg/dL 10/06/2024 8:16 AM EDT [facility] AST 57(H) 13 - 39 U/L 10/06/2024 8:16 AM EDT [facility] ALT 29 7 - 52 U/L 10/06/2024 8:16 AM EDT [facility] Alkaline Phosphatase 158(H) 36 - 125 U/L 10/06/2024 8:16 AM EDT [facility] Total Protein 5.6(L) 6.4 - 8.9 g/dL 10/06/2024 8:16 AM EDT [facility] Albumin 3.6 3.5 - 5.7 g/dL 10/06/2024 8:16 AM EDT [facility] Osmolality, Calculated 286 278 - 305 mOsm/kg 10/06/2024 8:16 AM EDT [facility] EGFR 22 10/06/2024 8:16 AM EDT [facility] Comment:As of 2021, the [...] ORDERABLES Final Resul t Performing Organization Address City/[facility]/ZIP Co de Phone Number [facility] [address] [facility]. [address] * (ABNORMAL) Salicylate Level (10/06/2024 4:01 AM EDT) [facility] Salicylate Lvl <3(L) 10 - 30 mg/dL 10/06/2024 4:58 AM EDT [facility] Serum 10/06/2024 4:01 AM EDT 10/06/2024 4:22 AM EDT Bisi Hernandez DO LAB BLOOD ORDERABLES Final Resul t [facility] [address] * Upper Respiratory Viral/Bacterial Panel-[employer] ASSEM[employer]ER Only (10/06/2024 3:12 AM EDT) Pathologist [facility] [place] Adenovirus Not Detected Not Detected 10/06/2024 11:38 PM EDT [facility] Coronavirus (229E,HKU1,NL63,OC 43) Not Detected Not Detected 10/06/2024 11:38 PM EDT [facility] SARS-CoV-2 Not Detected Not Detected 10/06/2024 11:38 PM EDT [facility] Human Metapneumovirus Not Detected Not Detected 10/06/2024 11:38 PM EDT [facility] Human Rhinovirus/Enterov irus Not Detected Not Detected 10/06/2024 11:38 PM EDT [facility] Influenza A Not Detected Not Detected 10/06/2024 11:38 PM EDT [facility] Influenza A H1 Not Detected Not Detected 10/06/2024 11:38 PM EDT [facility] Influenza A/H1-2009 Not Detected Not Detected 10/06/2024 11:38 PM EDT [facility] Influenza A H3 Not Detected Not Detected 10/06/2024 11:38 PM EDT [facility] Influenza B Not Detected Not Detected 10/06/2024 11:38 PM EDT [facility] Parainfluenza 1 Not Detected Not Detected 10/06/2024 11:38 PM EDT [facility] Parainfluenza 2 Not Detected Not Detected 10/06/2024 11:38 PM EDT [facility] Parainfluenza 3 Not Detected Not Detected 10/06/2024 11:38 PM EDT [facility] Parainfluenza 4 Not Detected Not Detected 10/06/2024 11:38 PM EDT [facility] Resp. Syncycial Virus A Not Detected Not Detected 10/06/2024 11:38 PM EDT [facility] Resp. Syncycial Virus B Not Detected Not Detected 10/06/2024 11:38 PM EDT [facility] Chlamydia pneumoniae Not Detected Not Detected 10/06/2024 11:38 PM EDT [facility] Mycoplasma pneumoniae Not Detected Not Detected 10/06/2024 11:38 PM EDT [facility] Comment: The Respiratory Viral-Bacterial Panel [...] the [facility] in accordance with state requirements. For a fact sheet for healthcare providers, see https://www.fda.gov/media/366902/download. For a fact sheet for patients, see https://www.fda.gov/media/306091/download. 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 [employer] DO BODY FLUIDS AND STOOLS ORDERABLE S Final Result Performing Organization Address [facility]/ZIP Co de Phone Number [facility] [address] [place] [address] * Thyroid Function [place] (10/06/2024 1:04 AM EDT) Pathologist [facility] [place] TSH 0.84 0.45 - 4.12 uIU/mL 10/06/2024 2:20 AM EDT [facility] Serum 10/06/2024 1:04 AM EDT 10/06/2024 1:39 AM EDT [employer] DO LAB BLOOD ORDERABLES Final Resul t Performing Organization Address City/[facility]/ZIP Co de Phone Number [facility] [address] * #2 Blood culture-Peripheral site 2 (10/06/2024 1:04 AM EDT) Only the most recent of4 resultswithin the time period is included. Culture Result No Growth After 5 Days [facility] Blood BLOOD SPECIMEN / Unknown 10/06/2024 1:04 AM EDT 10/06/2024 4:57 AM EDT Narrative [facility] - 10/11/2024 5:05 AM EDT Suboptimal volume of blood received. Interpret results with caution. Bisi Mary DOZIER MICROBIOLOGY - GENERAL ORDERABLE S Final Result [facility] [address] [place] [address]. [address] * (ABNORMAL) Acetaminophen Level (10/06/2024 1:04 AM EDT) Acetaminophen Level <10(L) 10 - 30 ug/mL 10/06/2024 2:08 AM EDT [facility] Serum 10/06/2024 1:04 AM EDT 10/06/2024 1:30 AM EDT Result [facility] Bisi Hernandez DO LAB BLOOD ORDERABLES Final Resul t Performing Organization Address City/[facility]/ZIP Co de Phone Number [facility] [address] [facility]. [address] * Renal Function Panel, Fasting (09/16/2024 12:20 PM EDT) EGFR 31 Anion Gap 14.3 <=30 mmol/L Plasma Result [facility] Gerri Peterson MD LAB BLOOD ORDERABLES Final Resu lt * Glucose, random (09/16/2024 12:20 PM EDT) Glucose 97 60 - 200 mg/dL Plasma Result [facility] Gerri Peterson MD LAB BLOOD ORDERABLES [...] marked LLQ . Under sterileconditions, 5 Fr/7cm JibJabeh catheter was inserted in a LLQ site [...] NAA RODRIGUEZ Ashley JACOME PROCEDURE/MINOR SURGICAL ORDE RABLES Final [...] ORDERA BLES Final Result Performing Organization Address [facility] Co de Phone Number [facility] [address] * Clostridium Difficile Toxin A/B Antigen (09/09/2024 4:58 AM EDT) CDIFF Tox AGN Negative Negative 09/09/2024 1:57 PM EDT [facility] Comment:C. difficile nucleic acid testing [...] ORDERA BLES Final Result Performing Organization Address [facility] de Phone Number [facility] [address] [facility]. [address] * Phosphorus, AM (09/05/2024 7:24 AM EDT) Only the most recent of3 resultswithin the time period is included. Phosphorus 2.1 2.1 - 4.7 mg/dL 09/05/2024 8:25 AM EDT [facility] Plasma 09/05/2024 7:24 AM EDT 09/05/2024 7:38 AM EDT Kiet Ramriez MD LAB BLOOD ORDERABLES Denisse l Result Performing Organization Address [facility] Co de Phone Number [facility] [address] * (ABNORMAL) Basic Metabolic panel, AM (09/05/2024 7:24 AM EDT) Only the most recent of10 resultswithin the time period is included. Sodium 134 133 - 146 mmol/L 09/05/2024 8:25 AM EDT [facility] Potassium 3.6 3.5 - 5.3 mmol/L 09/05/2024 8:25 AM EDT [facility] Chloride 107 98 - 110 mmol/L 09/05/2024 8:25 AM EDT [facility] CO2 19(L) 21 - 33 mmol/L 09/05/2024 8:25 AM EDT [facility] Anion Gap 8 3 - 16 mmol/L 09/05/2024 8:25 AM EDT [facility] BUN 42(H) 7 - 25 mg/dL 09/05/2024 8:25 AM EDT [facility] Creatinine 2.92(H) 0.60 - 1.30 mg/dL 09/05/2024 8:25 AM EDT [facility] Glucose 108(H) 70 - 100 mg/dL 09/05/2024 8:25 AM EDT [facility] Calcium 8.6 8.6 - 10.3 mg/dL 09/05/2024 8:25 AM EDT [facility] Osmolality, Calculated 289 278 - 305 mOsm/kg 09/05/2024 8:25 AM EDT [facility] EGFR 27 09/05/2024 8:25 AM EDT [facility] Comment:As of 2021, the [...] l Result Performing Organization Address [facility] Co de Phone Number [facility] [address] * Fluid Creatinine (09/04/2024 11:01 AM EDT) Creat, Fluid 3.17 mg/dL 09/04/2024 6:15 PM EDT [facility] Comment:Reference range not established for this test. Abdominal Fluid ABDOMEN / Unknown 025 11:01 AM EDT 09/04/2024 5:25 PM EDT Narrative [facility] - 09/04/2024 6:15 PM EDT This assay has been modified from the golf professional's specifications and has been validated with performance characteristics determined by [facility] in accordance with federal [...] Final Result Performing Organization Address [facility] de Phone Number [facility] [address] [place] [address]. [address] * Protein, Body fluid (09/04/2024 11:01 AM EDT) Only the most recent of2 resultswithin the time period is included. Protein, Fluid <3.0 g/dL 09/04/2024 6:15 PM EDT [facility] Comment:Reference range not established for this test. Ascitic Fluid ABDOMEN / Unknown 11:01 AM EDT 09/04/2024 5:25 PM EDT Narrative [facility] - 09/04/2024 6:15 PM EDT This assay has been modified from the golf professional's specifications and has been validated with performance characteristics determined by [facility] in accordance with federal [...] Final Result Performing Organization Address [facility] de Phone Number [facility] [address] [place] [address] * Albumin, fluid (09/04/2024 11:01 AM EDT) Only the most recent of2 resultswithin the time period is included. Albumin, Fluid <1.5 g/dL 09/04/2024 6:15 PM EDT [facility] Comment:Reference range not established for this test. Abdominal Fluid ABDOMEN / Unknown 025 11:01 AM EDT 09/04/2024 5:25 PM EDT Narrative [facility] - 09/04/2024 6:15 PM EDT This assay has been modified from the golf professional's specifications and has been validated with performance characteristics determined by [facility] in accordance with federal [...] Final Result Performing Organization Address [facility] de Phone Number [facility] [address] [facility]. [address] * Lipase (09/04/2024 5:22 AM EDT) Only the most recent of2 resultswithin the time period is included. Lipase 40 4 - 82 U/L 09/04/2024 11:41 AM EDT [facility] Plasma 09/04/2024 5:22 AM EDT 09/04/2024 11:23 AM EDT us Kiet Ramirez MD LAB BLOOD ORDERABLES Denisse l Result [facility] [address] [facility]. [address] * MRSA/Staph aureus DNA ??? Diagnostic testing for pneumonia (09/03/2024 3:21 PM EDT) MRSA, PCR Negative Negative 09/03/2024 7:48 PM EDT [facility] Staph Aureus, PCR Negative Negative 09/03/2024 7:48 PM EDT [facility] Comment:Test method is a FDA approved amplified DNA assay. Nares Swab BOTH ANTERIOR NARES / Unknown 09/03/2024 3:21 PM EDT 09/03/2024 4:25 PM EDT Narrative [facility] - 09/03/2024 7:48 PM EDT Diagnosis of MRSA Pneumonia->Yes - Place [id number] (this order) Kiet Ramirez MD MICROBIOLOGY - GENERAL OR DERABLES Final Result Performing Organization Address [facility] Co de Phone Number [facility] [address] [facility]. [address] * (ABNORMAL) Urine Drug Screen without Confirmation, STAT (09/03/2024 3:21 PM EDT) Amphetamine, 500 ng/mL Cutoff Negative Negative 09/03/2024 4:17 PM EDT [facility] Barbiturates UR, 300 ng/mL Cutoff Negative Negative 09/03/2024 4:17 PM EDT [facility] Buprenorphine, 5 ng/mL Cutoff Negative Negative 09/03/2024 4:17 PM EDT [facility] Benzodiazepines UR, 300 ng/mL Cutoff Negative Negative 09/03/2024 4:17 PM EDT [facility] Cocaine UR, 300 ng/mL Cutoff Negative Negative 09/03/2024 4:17 PM EDT [facility] Methadone, UR, 300 ng/mL Cutoff Negative Negative 09/03/2024 4:17 PM EDT [facility] Opiates UR, 300 ng/mL Cutoff Presumptive Positive(A) Negative 09/03/2024 4:17 PM EDT [facility] Oxycodone, 100 ng/mL Cutoff Negative Negative 09/03/2024 4:17 PM EDT [facility] Tricyclic Antidepressants, 300 ng/mL Cutoff Negative Negative 09/03/2024 4:17 PM EDT [facility] Comment:This test has been d eveloped and its performance characteristics determined by [facility] [...] Cutoff Negative Negative 09/03/2024 4:17 PM EDT [facility] Comment:This is a screening method only and may be associated with false positive and/or false negative results. Results are not definitive without additional confirmatory testing by mass spectrometry. Fentanyl, 2 ng/mL Cutoff Negative Negative 09/03/2024 4:17 PM EDT [facility] Comment:This test has been d eveloped and its performance characteristics determined by [facility] [...] Ramirez MD URINE ORDERABLES Final Re sult [facility] [address] [place] [address], [facility] * Urea Nitrogen, Urine (09/03/2024 3:21 PM EDT) Urea Nitrogen, Ur 350 mg/dL 09/03/2024 4:12 PM EDT [facility] Comment:Reference range not established for this test. Urine 09/03/2024 3:21 PM EDT 09/03/2024 3:30 PM EDT Kiet Ramirez MD URINE ORDERABLES Final Re sult Performing Organization Address [facility] de Phone Number [facility] [address] [place] [address]. [address] * Hepatitis B Core IgM (09/03/2024 1:43 PM EDT) Hep B Core IgM Nonreactive Nonreactive 09/03/2024 3:50 PM EDT [facility] Serum 09/03/2024 1:43 PM EDT 09/03/2024 2:17 PM EDT Narrative [facility] - 09/03/2024 3:50 PM EDT The result will be immediately released to [facility] when marked final. Do you believe the result release to [facility] should be delayed based on either the Preventing Harm or Privacy exceptions of the Cures Rule?->No IgM anti-HBc not detected. Does not exclude the possibility of exposure to or infection with HBV. Kiet Ramirez MD LAB BLOOD ORDERABLES Denisse l Result Performing Organization Address [facility] Co de Phone Number [facility] [address] [place] [address]. [address] * T4, Free (09/03/2024 1:43 PM EDT) Free T4 0.74 0.61 - 1.76 ng/dL 09/03/2024 6:34 PM EDT [facility] Comment:Biotin megadosing (c onsumption >300 mcg/day) may falsely elevate free T4. When indicated, discontinue megadosing for 1 week and repeat testing. Serum 09/03/2024 1:43 PM EDT 09/03/2024 2:17 PM EDT Kiet Ramirez MD LAB BLOOD ORDERABLES Denisse l Result Performing Organization Address [facility] Co de Phone Number [facility] [address] * (ABNORMAL) Urinalysis, Microscopic (09/03/2024 10:28 AM EDT) RBC, UA 1 0 - 3 /HPF 09/03/2024 11:51 AM EDT [facility] WBC, UA 1 0 - 5 /HPF 09/03/2024 11:51 AM EDT [facility] Squam Epithel, UA <1 0 - 5 /HPF 09/03/2024 11:51 AM EDT [facility] Bacteria, UA Occasional (A) None Seen /HPF 09/03/2024 11:51 AM EDT [facility] Mucus, UA Present(A) None Seen /HPF 09/03/2024 11:51 AM EDT [facility] Urine 09/03/2024 10:2 8 AM EDT 09/03/2024 11:24 AM EDT Kiet Ramirez MD URINE ORDERABLES Final Re sult Performing Organization Address [facility] de Phone Number [facility] [address] * (ABNORMAL) Urinalysis-Macroscopic w/Rfx to Microsco (09/03/2024 10:28 AM EDT) Color, UA Yellow Yellow,Straw 09/03/2024 11:51 AM EDT [facility] Clarity, UA Cloudy(A) Clear 09/03/2024 11:51 AM EDT [facility] Specific [place], UA >1.035(H) 1.005 - 1.035 09/03/2024 11:51 AM EDT [facility] pH, UA 6.5 5.0 - 8.0 09/03/2024 11:51 AM EDT [facility] Protein, UA Trace(A) Negative mg/dL 09/03/2024 11:51 AM EDT [facility] Glucose, UA Negative Negative mg/dL 09/03/2024 11:51 AM EDT [facility] Ketones, UA Negative Negative mg/dL 09/03/2024 11:51 AM EDT [facility] Bilirubin, UA Small(A) Negative 09/03/2024 11:51 AM EDT [facility] Blood, UA Negative Negative 09/03/2024 11:51 AM EDT [facility] Nitrite, UA Negative Negative 09/03/2024 11:51 AM EDT [facility] Urobilinogen, UA <2.0 0.2 - 1.9 mg/dL 09/03/2024 11:51 AM EDT [facility] Leukocyte Esterase, UA Negative Negative 09/03/2024 11:51 AM EDT [facility] Urine 09/03/2024 10:2 8 AM EDT 09/03/2024 10:55 AM EDT Kiet Ramirez MD URINE ORDERABLES Final Re sult Performing Organization Address City/[facility]/ZIP Co de Phone Number [facility] [address] [facility]. [address] * Lactic acid, venous (09/03/2024 7:55 AM EDT) Lactate, Shakeel 1.8 0.5 - 2.2 mmol/L 09/03/2024 8:02 AM EDT [facility] Whole Blood VENOUS STRUCTURE / Unknown 09/03/2024 7:55 AM EDT 09/03/2024 7:59 AM EDT Jarrod Alas MD LAB BLOOD ORDERABLES Final Res ult [facility] [address] [facility]. [address] * High Sensitivity Troponin (60min) (09/03/2024 7:18 AM EDT) Only the most recent of2 resultswithin the time period is included. High Sensitivity Troponin 14 0 - 20 ng/L 09/03/2024 7:49 AM EDT [facility] Serum 09/03/2024 7:18 AM EDT 09/03/2024 7:18 AM EDT Narrative [facility] - 09/03/2024 7:49 AM EDT Please draw 60min after time that first troponin is drawn. 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, VRE- urine 10/31/202410/13 Insurance [facility] [employer]LO[employer] [facility] [employer]ANT GLOBAL Member Subscriber Plan / Payer (Ef fective 2024-Present) Name:Blair Anderson Relation to Subscriber:Self Name:Blair Anderson Payer ID:[id number] Group ID:Not on file Type:Transplant Address: [address] [place] [address] Advance Directives For more information, please contact: [phone] * Full Code (Latest Code Status on [...] 9:55 PM 08/19/2024 4:56 PM Care Teams Robotic Machine Operator Relationship Specialty Start Date End Date Enedina Mcguire NP [address] [place] [address] PCP - General Internal Medicine 10/05/24 Maureen Patnoja, ЮЛИЯ Txp Post Coordinator Transplant Hepatology 10/28/24
--- OUTSIDE RECORDS SUMMARY | 2024-11-20 08:01 | XMS_ITS | Encounter Summary ---
Author Organization [facility] Address [address] [place] [address] Care Team Providers Care Manager [place] Name Role Phone Enedina Mcguire NP Primary Care Provider [phone] Source Comments This information has been disclosed [...] release of HIV test results or diagnoses. [id number] Health Encounter Details Date Type Department Care Team (Late st Contact Info) Description 10/14/2024 Chart Note [facility] Kidney Transplant at [address] [place] [phone] Dean Robles replaced by [facility] [phone] Social History Tobacco Use Types Packs/Day Years Used Date Smoking Tobacco: Former Cigarettes Smokeless Tobacco: Current Alcohol Use Standard Drinks/Week Comments Yes 0 (1 standard drink = 0.6 oz pure alcohol) History of alcohol abuse, reports no use in 3 week- typically endorses use as 4 glasses of wine a days Utilities Answer Date Recorded In the past 12 months has [employer], [employer], oil, or water [employer] threatened to shut off services in your [...] Guillen 10/14/2024 9:49 AM EDT Dean berman replaced by [facility] [phone] Case opened TAYLOR Almeida ph [phone] Fx [phone] Liver requested urgent review for slk Approved by [facility] letter to files documented in this encounter Plan of Treatment Upcoming Encounters Date Type Department Care Team (Late st Contact Info) Description 12/05/2024 8:01 AM EDT Hospital Encounter [facility] ENDOSCOPY [address] [place] [phone] Chris Orosco MD [address] [place] [phone] 12/05/2024 8:01 AM EDT - 12/05/2024 8:[address] [facility] ENDOSCOPY [address] [place] [phone] Chris Orosco MD [address] [place] [phone] EGD Scheduled Procedures Name Priority Associated Diagnoses [...] as of this encounter Care Teams Manager [place] Relationship Specialty Start Date End Date Enedina Mcguire NP [address] [place] [address] PCP - General Internal Medicine 10/05/24 documented as of this encounter
--- OUTSIDE RECORDS SUMMARY | 2024-11-20 08:03 | XMS_ITS | Encounter Summary ---
Author Organization [facility] Address [address] [place] [address] Care Team Providers Care Industrial Services Worker Name Role Phone Unavailable Primary Care [...] release of HIV test results or diagnoses. [id number] Health Encounter Details Date Type Department Care Team (Late st Contact Info) Description 09/26/2024 Abstract [facility] [address] [place] [phone] Gerri Peterson MD [address] [place] [address] Social History Tobacco Use Types Packs/Day Years Used Date Smoking Tobacco: Former Cigarettes Smokeless Tobacco: Current Alcohol Use Standard Drinks/Week Comments Yes 0 (1 standard drink = 0.6 oz pure alcohol) History of alcohol abuse, reports no use in 3 week- typically endorses use as 4 glasses of wine a days Utilities Answer Date Recorded In the past 12 months has [facility] [employer], gas, oil, or water [employer] threatened to shut off services in [...] Encounter [facility] ENDOSCOPY [address] [place] [phone] Chris Orosco MD [address] [place] [phone] 12/05/2024 8:01 AM EDT - 12/05/2024 8:31 AM EDT Surgery [facility] ENDOSCOPY [address] [facility] [place] [phone] Chris Orosco MD [address] [place] [phone] EGD Scheduled Procedures Name Priority Associated Diagnoses [...]
--- OUTSIDE RECORDS SUMMARY | 2024-11-20 08:03 | XMS_ITS | Encounter Summary ---
Author Organization [facility] Address [address] [place] [address] Care Team Providers Care Privacy Director Name Role Phone Unavailable Primary Care [...] release of HIV test results or diagnoses. [id number] Health Encounter Details Date Type Department Care Team (Late st Contact Info) Description 10/01/2024 Telephone [facility] Liver Transplant at [address] [phone] Armand Salinas, RN Social History Tobacco Use [...] Recorded In the past 12 months has [employer], gas, oil, or water company threatened to [...] Encounter [facility] ENDOSCOPY [address] [place] [address] Chris Orosco MD [address] [place] [phone] 12/05/2024 8:01 AM EDT - 12/05/2024 8:31 AM EDT Surgery [facility] ENDOSCOPY [address] [place] [address] Chris Orosco MD [address] [place] [phone] EGD Scheduled Procedures Name Priority Associated Diagnoses [...]
--- OUTSIDE RECORDS SUMMARY | 2024-11-20 08:03 | XMS_ITS | Encounter Summary ---
Author Organization [facility] Address [address] [place] [address] Care Team Providers Care Rehabilitation Center Manager Name Role Phone Enedina Mcguire NP Primary Care Provider [phone] Source Comments This information has been disclosed [...] release of HIV test results or diagnoses. [id number] [facility] Encounter Details Date Type Department Care [...] Recorded In the past 12 months has [employer], oil, or water [employer] threatened to shut off services in your [...] Description 12/05/2024 8:01 AM EDT Hospital Encounter [facility] ENDOSCOPY [address] [place] [address] Chris Orosco MD [address] [place] [phone] 12/05/2024 8:01 AM EDT - 12/05/2024 8:31 AM EDT Surgery [facility] ENDOSCOPY [address] [place] [address] Chris Orosco MD [address] [place] [phone] EGD Scheduled Procedures Name Priority Associated Diagnoses [...] as of this encounter Care Teams Rehabilitation Center Manager Relationship Specialty Start Date End Date Enedina Mcguire NP [address] [place] [address] PCP - General Internal Medicine 10/05/24 documented as of this encounter
--- OUTSIDE RECORDS SUMMARY | 2024-11-20 08:03 | XMS_ITS | Encounter Summary ---
Author Organization [facility] Address [address] [place] [address] Care Team Providers Care Slot Machine Floor Person Name Role Phone Enedina Mcguire NP Primary Care Provider [phone] Source Comments This information has been disclosed [...] release of HIV test results or diagnoses. [id number] [facility] Encounter Details Date Type Department Care Team (Late st Contact Info) Description 10/07/2024 Chart Note [facility] Kidney Transplant at [address] [place] [phone] Anny Cote RN Received notice of [...] Recorded In the past 12 months has [employer], gas, oil, or water [employer] threatened to shut off services in your [...] 12/05/2024 8:01 AM EDT Hospital Encounter [facility] ENDOSCOPY [address] [place] [address] Chris Orosco MD [address] [place] [phone] 12/05/2024 8:01 AM EDT - 12/05/2024 8:31 AM EDT Surgery [facility] ENDOSCOPY [address] [place] [address] Chris Orosco MD [address] [place] [phone] EGD Scheduled Procedures Name Priority Associated Diagnoses [...] documented as of this encounter Care Teams Slot Machine Floor Person Relationship Specialty Start Date End Date Enedina Mcguire NP [address] [place], [place] [phone] PCP - General Internal Medicine 10/05/24 documented as of this encounter
--- OUTSIDE RECORDS SUMMARY | 2024-11-20 08:03 | XMS_ITS | Encounter Summary ---
Author Organization [facility] Address [address] [place] [address] Care Team Providers Care Auto Specialty Services Manager Name Role Phone Enedina Mcguire NP Primary Care Provider [phone] Source Comments This information has been disclosed [...] release of HIV test results or diagnoses. [id number] Encounter Details Date Type Department Care Team (Late st Contact Info) Description 10/09/2024 Social Work [facility] Liver Transplant at [address] [address] Kaylin Willard MSW Social History Tobacco Use [...] Recorded In the past 12 months has [employer], gas, oil, or water [employer] threatened to shut off services in your [...] Liver Transplant Patient has been referred to [facility] for liver transplant evaluation. Patient was evaluated by transplant psychiatric social worker on 09/25/2024 and it was determined that patient will need to complete 12 weeks of CD treatment. Patient is engaged in CD treatment with: [facility] [phone] SW met with patient and spouse at [...] during hospitalization pending mental status. NUBIA Barros, TRIAGE ASSISTANT documented in this encounter Plan of Treatment Upcoming Encounters Date Type Department Care Team (Late st Contact Info) Description 12/05/2024 8:01 AM EDT Hospital Encounter [facility] ENDOSCOPY [address] [place] [phone] Chris Orosco MD [address] [place] [phone] 12/05/2024 8:01 AM EDT - 12/05/2024 8:31 AM EDT Surgery [facility] ENDOSCOPY [address] [place] [address] Chris Orosco MD [address] [place] [phone] EGD Scheduled Procedures Name Priority Associated Diagnoses Date/Ti me EGD Cirrhosis of liver with ascites, unspecified hepatic cirrhosis type ([facility]) 12/05/2024 8:01 AM EDT documented as of this encounter Visit Diagnoses Not on filedocumented in this encounter Additional Health Concerns Infection Onset Date Last Indicated Resolved Time C. difficile 09/09/2024 09/09/2024 10/27/2024 8:30 AM EDT Assessment Noted Time PHQ-9 Depression Total Score: 17 025 11:00 AM EDT documented as of this encounter Care Teams Auto Specialty Services Manager Relationship Specialty Start Date End Date Enedina Mcguire NP [address] [place] [address] PCP - General Internal Medicine 10/05/24 documented as of this encounter
--- OUTSIDE RECORDS SUMMARY | 2024-11-20 08:03 | XMS_ITS | Encounter Summary ---
Author Organization [facility] Address [address] [place] [address] Care Team Providers Care Heat Treat Supervisor Name Role Phone Enedina Mcguire NP Primary Care Provider [phone] Source Comments This information has been disclosed [...] release of HIV test results or diagnoses. [id number] Health Encounter Details Date Type Department Care Team (Late st Contact Info) Description 10/07/2024 Chart Note [facility] Kidney Transplant at [address] [address] Anny Cote RN Simultaneous Liver-Kidney Transplant Referral [...] Recorded In the past 12 months has [employer], gas, oil, or water [employer] threatened to shut off services in your [...] Financial Clearance is pending sent to financial recruiter [x] HLA testing to be ordered once [...] Dialysis Unit: (Not currently on dialysis) Outside worm farm laborer: Dr. Curran, Yovanny Nicholson MD Routed to kidney referral intake team. documented in this encounter Plan of Treatment Upcoming Encounters Date Type Department Care Team (Late st Contact Info) Description 12/05/2024 8:01 AM EDT Hospital Encounter [facility] ENDOSCOPY [address] [place] [address] Chris Orosco MD [address] [place] [phone] 12/05/2024 8:01 AM EDT - 12/05/2024 8:31 AM EDT Surgery [facility] ENDOSCOPY [address] [place] [phone] Chris Orosco MD [address] [place] [phone] EGD Scheduled Procedures Name Priority Associated Diagnoses Date/Ti me EGD Cirrhosis of liver with ascites, unspecified hepatic cirrhosis type ([facility]) 12/05/2024 8:01 AM EDT documented as [...] documented as of this encounter Care Teams Heat Treat Supervisor Relationship Specialty Start Date End Date Enedina Mcguire NP [address] [place] [address] PCP - General Internal Medicine 10/05/24 documented as of this encounter
--- OUTSIDE RECORDS SUMMARY | 2024-11-20 08:03 | XMS_ITS | Encounter Summary ---
Author Organization [facility] Address [address] [place] [address] Care Team Providers Care Agile Scrum Coach Name Role Phone Enedina Mcguire NP Primary Care Provider [phone] Source Comments This information has been disclosed [...] release of HIV test results or diagnoses. [id number] Health Encounter Details Date Type Department Care Team (Late st Contact Info) Description 10/07/2024 Chart Note [facility] Kidney Transplant at [address] [place] [phone] Chey Nicole MA This MA received new [...] In the past 12 months has [employer], gas, oil, or water [employer] threatened to shut off services in your [...] PT. Will FU once financially cleared. An [employer] fax was sent to [facility] and or referring office to notify of referral acceptance. documented in this encounter Plan of Treatment Upcoming Encounters Date Type Department Care Team (Late st Contact Info) Description 12/05/2024 8:01 AM EDT Hospital Encounter [facility] ENDOSCOPY [address] [place] [address] Chris Orosco MD [address] [place] [phone] 12/05/2024 8:01 AM EDT - 12/05/2024 8:31 AM EDT Surgery [facility] ENDOSCOPY [address] [place] [phone] Chris Orosco MD [address] [place] [phone] EGD Scheduled Procedures Name Priority Associated Diagnoses [...] documented as of this encounter Care Teams Agile Scrum Coach Relationship Specialty Start Date End Date Enedina Mcguire NP [address] [place] [address] PCP - General Internal Medicine 10/05/24 documented as of this encounter
--- OUTSIDE RECORDS SUMMARY | 2024-11-20 08:03 | XMS_ITS | Encounter Summary ---
Author Organization [facility] Address [address] [place] [address] Care Team Providers Care Early Childhood Lead Teacher Name Role Phone Enedina Mcguire NP Primary Care Provider [phone] Source Comments This information has been disclosed [...] release of HIV test results or diagnoses. [id number] Health Encounter Details Date Type Department Care Team (Late st Contact Info) Description 10/09/2024 Chart Note [facility] Kidney Transplant at [address] [place] [phone] Dean Robles [facility] [phone] Social History Tobacco Use Types Packs/Day Years Used Date Smoking Tobacco: Former Cigarettes Smokeless Tobacco: Current Alcohol Use Standard Drinks/Week Comments Yes 0 (1 standard drink = 0.6 oz pure alcohol) History of alcohol abuse, reports no use in 3 week- typically endorses use as 4 glasses of wine a days Utilities Answer Date Recorded In the past 12 months has [employer], [employer], oil, or water [employer] threatened to shut off services in [...] Guillen 10/09/2024 10:37 AM EDT Dean berman [facility] [phone] Called Cammie Wing [phone] Advised of brandon martínez she was aware Assigning a cm to call me Requested all clinical Advised this is now a SLK Pending cm call back documented in this encounter Plan of Treatment Upcoming Encounters Date Type Department Care Team (Late st Contact Info) Description 12/05/2024 8:01 AM EDT Hospital Encounter [facility] ENDOSCOPY [address] [place] [phone] Chris Orosco MD [address] [place] [phone] 12/05/2024 8:01 AM EDT - 12/05/2024 8:31 AM EDT Surgery [facility] ENDOSCOPY [address] [place] [phone] Chris Orosco MD [address] [place] [phone] EGD Scheduled Procedures Name Priority Associated Diagnoses [...] documented as of this encounter Care Teams Early Childhood Lead Teacher Relationship Specialty Start Date End Date Enedina Mcguire NP [address] [place] [address] PCP - General Internal Medicine 10/05/24 documented as of this encounter
--- OUTSIDE RECORDS SUMMARY | 2024-11-20 08:03 | XMS_ITS | Encounter Summary ---
Author Organization [facility] Address [address] [place] [address] Care Team Providers Care Painter Decorator Name Role Phone Unavailable Primary Care Provider [...] release of HIV test results or diagnoses. [id number] Health Encounter Details Date Type Department Care Team (Late st Contact Info) Description 09/24/2024 Orders Only [facility] Gastroenterology at [facility] [address] [place] [phone] Gerri Peterson MD [address] [place] [address] Cirrhosis of liver with ascites, [...] Recorded In the past 12 months has [employer], gas, oil, or water company threatened [...] Encounter [facility] ENDOSCOPY [address] [place] [address] Chris Orosco MD [address] [place] [phone] 12/05/2024 8:01 AM EDT - 12/05/2024 8:31 AM EDT Surgery [facility] ENDOSCOPY [address] [place] [address] Chris Orosco MD [address] [place] [address] EGD Scheduled Procedures Name Priority Associated Diagnoses [...]
--- OUTSIDE RECORDS SUMMARY | 2024-11-20 08:03 | XMS_ITS | Encounter Summary ---
Author Organization [facility] Address [facility] [place] [address] Care Team Providers Care Drying Unit Felting Machine Operator Name Role Phone Enedina Mcguire NP Primary Care Provider [phone] Source Comments This information has been disclosed [...] release of HIV test results or diagnoses. [id number] Reason for Visit * Reason Comments After Hours Call Encounter Details Date Type Department Care Team ([facility] Contact Info) Description 10/05/2024 Telephone [facility] [address] [place] [address] Unknown, Attending Provider After Hours [...] months has [employer], gas, oil, or water [employer] threatened to shut off services in your [...] local ER w/ plans to transfer to [facility] if higher level of care [...] Relationship of Caller to Patient and Callback: ABDIAZIZ()[phone] Patient of: DR. LINARES Nature of Call: STATES PT IS SHOWING SIGNS OF CONFUSION. PLEASE ADVISE. Catalogue Librarian Provider Contacted: DR. RETANA Time and Method [...] 12/05/2024 8:01 AM EDT Hospital Encounter [facility] ENDOSCOPY [address] [place] [address] Chris Orosco MD [address] [place] [phone] 12/05/2024 8:01 AM EDT - 12/05/2024 8:31 AM EDT Surgery [facility] ENDOSCOPY [address] [place] [phone] Chris Orosco MD [address] [place] [phone] EGD Scheduled Procedures Name Priority Associated Diagnoses [...] documented as of this encounter Care Teams Drying Unit Felting Machine Operator Relationship Specialty Start Date End Date Enedina Mcguire NP [address] [place] [address] PCP - General Internal Medicine 10/05/24 documented as of this encounter
--- OUTSIDE RECORDS SUMMARY | 2024-11-20 08:03 | XMS_ITS | Encounter Summary ---
Author Organization [facility] Address [address] [place] [address] Care Team Providers Care Materials Development Engineer Name Role Phone Enedina Mcguire NP Primary Care Provider [phone] Source Comments This information has been disclosed [...] release of HIV test results or diagnoses. [id number] Health Encounter Details Date Type Department Care Team (Late st Contact Info) Description 10/09/2024 Chart Note [facility] Kidney Transplant at [address] [place] [phone] Dean Robles [facility] [phone] call from Elle [facility] fx [phone] Social History Tobacco Use Types Packs/Day Years Used Date Smoking Tobacco: Former Cigarettes Smokeless Tobacco: Current Alcohol Use Standard Drinks/Week Comments Yes 0 (1 standard drink = 0.6 oz pure alcohol) History of alcohol abuse, reports no use in 3 week- typically endorses use as 4 glasses of wine a days Utilities Answer Date Recorded In the past 12 months has e [employer], gas, oil, or water company threatened to [...] - 10/09/2024 11:57 AM EDT Dean berman [facility] [phone] call from Elle the R fx [phone] Set her all clinical Rquesting a urgent review for liver txp UMR/optum case opened 10/05/24 Pends response documented in this encounter Plan of Treatment Upcoming Encounters Date Type Department Care Team (Late st Contact Info) Description 12/05/2024 8:01 AM EDT Hospital Encounter [facility] ENDOSCOPY [address] [place] [phone] Chris Orosco MD [address] [place] [phone] 12/05/2024 8:01 AM EDT - 12/05/2024 8:[address] [facility] ENDOSCOPY [address] [place] [phone] Chris Orosco MD [address] [place] [phone] EGD Scheduled Procedures Name Priority Associated Diagnoses [...] documented as of this encounter Care Teams Materials Development Engineer Relationship Specialty Start Date End Date Enedina Mcguire NP [address] [place] [address] PCP - General Internal Medicine 10/05/24 documented as of this encounter
--- OUTSIDE RECORDS SUMMARY | 2024-11-20 08:03 | XMS_ITS | Encounter Summary ---
Author Organization [facility] Address [address] [place] [address] Care Team Providers Care Food And Beverage Cashier Name Role Phone Enedina Mcguire NP Primary Care Provider [phone] Source Comments This information has been disclosed [...] release of HIV test results or diagnoses. [id number] Health Encounter Details Date Type Department Care Team (Late st Contact Info) Description 10/07/2024 Chart Note [facility] Liver Transplant at [address] [place] [phone] Alexandro Sams, RN Spoke with Julien Anderson [...] Recorded In the past 12 months has [employer], gas, oil, or water [employer] threatened to shut off services in your [...] Description 12/05/2024 8:01 AM EDT Hospital Encounter [facility] ENDOSCOPY [address] [place] [address] Chris Orosco MD [address] [place] [phone] 12/05/2024 8:01 AM EDT - 12/05/2024 8:31 AM EDT Surgery [facility] ENDOSCOPY [address] [place] [phone] Chris Orosco MD [address] [place] [phone] EGD Scheduled Procedures Name Priority Associated [...] documented as of this encounter Care Teams Food And Beverage Cashier Relationship Specialty Start Date End Date Enedina Mcguire NP [address] [place] [address] PCP - General Internal Medicine 10/05/24 documented as of this encounter
--- OUTSIDE RECORDS SUMMARY | 2024-11-20 08:03 | XMS_ITS | Encounter Summary ---
Author Organization [facility] Address [address] [place] [address] Care Team Providers Care Press Breaker Name Role Phone Unavailable Primary Care Provider [...] release of HIV test results or diagnoses. [id number] Health Encounter Details Date Type Department Care Team (Late st Contact Info) Description 09/30/2024 Social Work [facility] Liver Transplant at [address] [phone] Kaylin Willard MSW Social History Tobacco Use [...] Recorded In the past 12 months has [employer], gas, oil, or water company threatened to [...] Liver Transplant Patient has been referred to [facility] for liver transplant evaluation. Patient was evaluated by transplant social sciences chair on 09/25/2024 and it was determined that patient will need to complete 12 weeks of CD treatment. Patient is engaged in CD treatment with: [facility] Mary Marie [phone] Patient has been attending an IOP program [...] treatment for him. Thank you NUBIA Barros, [facility] documented in this encounter Plan of Treatment Upcoming Encounters Date Type Department Care Team (Late st Contact Info) Description 12/05/2024 8:01 AM EDT Hospital Encounter [facility] ENDOSCOPY [address] [place] [address] Chris Orosco MD [address] [place] [phone] 12/05/2024 8:01 AM EDT - 12/05/2024 8:31 AM EDT Surgery [facility] ENDOSCOPY [address] [place] [phone] Chris Orosco MD [address] [place] [phone] EGD Scheduled Procedures Name Priority Associated Diagnoses [...]
--- OUTSIDE RECORDS SUMMARY | 2024-11-20 08:03 | XMS_ITS | Encounter Summary ---
Author Organization [facility] Address [address] [place] [address] Care Team Providers Care Tattoo Artist Name Role Phone Unavailable Primary Care Provider [...] release of HIV test results or diagnoses. [id number] Health Encounter Details Date Type Department Care Team (Late st Contact Info) Description 09/25/2024 Orders Only [facility] Liver Transplant at [address] [phone] Mary Butler, RN Pre-transplant evaluation for chronic [...] Recorded In the past 12 months has [employer], gas, oil, or water [employer] threatened to shut off services in your [...] Description 12/05/2024 8:01 AM EDT Hospital Encounter [facility] ENDOSCOPY [address] [place] [phone] Chirs Orosco MD [address] [place] [phone] 12/05/2024 8:01 AM EDT - 12/05/2024 8:31 AM EDT Surgery [facility] ENDOSCOPY [address] [place] [address] Chris Orosco MD [address] [place] [phone] EGD Scheduled Procedures Name Priority Associated Diagnoses [...] 09/29/2024 12:39 PM EDT [facility] DEICER REPAIRER STIMULANTS NOT PRESENT 12:39 PM EDT [facility] [...] Ur 122.10 mg/dL 09/26/2024 11:30 AM EDT [facility] Comment:Reference range not established for this test. pH 5.8 4.7 - 7.8 09/26/2024 11:30 AM EDT [facility] Specific Victoria 1.010 1.003 - 1.035 09/26/2024 11:30 AM EDT [facility] Urine 09/25/2024 11:5 5 AM EDT 09/25/2024 12:19 PM EDT Narrative [facility] - 09/29/2024 12:39 PM EDT This test has been developed and its performance characteristics determined by [facility] which is certified under the [...] Chinedu Sidhu MD URINE ORDERABLES Final Result [facility] [address] * Phosphatidylethanol Confirmation, B (09/25/2024 11:55 AM EDT) PETH 16:0/18.1 (POPETH) <10 Cutoff: 10 ng/mL 09/29/2024 12:24 PM EDT [facility] Comment: Phosphatidylethanol [...] Cutoff: 10 ng/mL 09/29/2024 12:24 PM EDT [facility] Comment: PEth 16:0/18:2 (PLPEth) Reference ranges are not well established PEth Interpretation Negative. 09/29 12:24 PM EDT [facility] Comment: ADDITIONAL INFORMATION This report is intended for use in clinical monitoring and management of patients. It is not intended for use in employment-related testing. This test was developed and its performance characteristics determined by [facility] in a manner consistent with CLIA requirements. This test has not been cleared or approved by the U.S. Food and Drug Administration. Test Performed by: [facility] [place] [address] Research Animal Attendant: Kathy Ortiz Ph.D.; CLIA# [id number] Whole Blood 09/25/2024 11:5 5 AM EDT 09/29/2024 12:24 PM EDT Chinedu Sidhu MD LAB BLOOD ORDERABLES Final Re sult [facility] [address] documented in this encounter Visit Diagnoses [...]
--- OUTSIDE RECORDS SUMMARY | 2024-11-20 08:03 | XMS_ITS | Encounter Summary ---
Author Organization [facility] Address [facility] [place] [address] Care Team Providers Care Assembly Operator Name Role Phone Unavailable Primary Care [...] release of HIV test results or diagnoses. [id number] Reason for Visit * Reason Comments Appointment Encounter Details Date Type Department Care Team (Late st Contact Info) Description 09/25/2024 Telephone [facility] Interventional Radiology [address] [place] [phone] De Leon, Shamone Appointment Social History [...] Recorded In the past 12 months has [employer], gas, oil, or water [employer] threatened to shut off services in your [...] IR Procedure, lvm to return call to [phone] opt 1 to schedule. documented in this encounter Plan of Treatment Upcoming Encounters Date Type Department Care Team (Late st Contact Info) Description 12/05/2024 8:01 AM EDT Hospital Encounter [facility] ENDOSCOPY [address] [place] [address] Chris Orosco MD [address] [place] [phone] 12/05/2024 8:01 AM EDT - 12/05/2024 8:[address] [facility] ENDOSCOPY [address] [place] [phone] Chris Orosco MD [address] [place] [phone] EGD Scheduled Procedures Name Priority Associated Diagnoses Date/Ti me EGD Cirrhosis of liver with ascites, unspecified hepatic cirrhosis type ([facility]) 12/05/2024 8:01 AM EDT documented as of this encounter Visit Diagnoses Not on filedocumented in this encounter Additional Health Concerns Infection Onset Date Last Indicated Resolved Time C. difficile 09/09/2024 09/09/2024 10/27/2024 8:30 AM EDT documented as of this encounter
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
--- OUTSIDE RECORDS SUMMARY | 2024-11-20 08:04 | XMS_ITS | Data Portability ---
Author Organization [facility],, Main Office Address [address] [place] [address] Assessment No assessment recorded. Plan of Treatment [...] Available No t Available BD Regular Bevel Hinckley 18 gauge x 1 active Not Available [...] Updated DateTime 3 193.04 cm 29.1 kg/m2 890359. 58 g 112 /min 97.7 [degF] 141/84 mm[Hg] [facility], 3 13:14:11 Date Recorded Body height Body mass index (BMI) Body weight Heart rate Body temperature Systolic And Diastolic Provider Name and Address Organization Details Last Updated DateTime 4 193.04 cm 30.4 kg/m2 515220. 09 g 92 /min 97.5 [degF] 176/104 mm[Hg] [facility], 4 14:06:31 Date Recorded Body temperature Provider Name a nd Address Organization Details Last Updated DateTime 12/27/2020 99.5 [degF] Cuca Strickland [facility], 12/27/2020 13:41:33 Date Recorded Body weight Heart rate Body temperature Systolic And Diastolic Provider Name and Address Organization Details Last Updated DateTime 04/03/2022 388849.95 g 93 /min 97.6 [degF] 114/83 mm[Hg] Ashley Wallace [facility], 04/03/2022 14:42:57 Social History None recorded. Functional Status None recorded. Mental Status None recorded. Family History Nothing Reported. Medical History No medical history recorded. Past Encounters Encounter ID Performer Location Encounter Start Date Encounter Closed Date Diagnosis/Indication Diagnosis SNOMED-CT Code Diagnosis ICD10 Code Diagnosis Note [id number] Yung Felipe DO Main Office [address] [place] [address] 12/27/2020 13:24:24 12/27/2020 14:00:19 Evaluation of semen fertility 731397086 N46.9 semen analysis [id number] Yung Felipe DO Main Office [address] [facility] [place] [address] 07/04/2021 14:47:56 07/04/2021 16:00:05 Evaluation of semen fertility 269480411 N46.9 semen analysis [id number] Yung Felipe DO Main Office [address] [place] [address] 05/31/2022 13:04:00 05/31/2022 13:50:01 Evaluation of semen fertility 836322030 N46.9 semen analysis + viability: analysis by Dr. Ruiz [id number] Yung Felipe DO Main Office [address] [place] [address] 10/22/2023 13:58:48 10/22/2023 14:31:18 Evaluation of semen fertility 754386522 N46.9 semen analysis + viability: analysis by [...] analysis Yung Felipe DO [address], [place], [address], [facility], 08/06/2021 23:24:22 05/31/2022 text/html semen analysis + viability Loraine L. [address], [place], [address], [facility], 05/31/2022 13:57:30 10/22/2023 text/html semen analysis [address], [place], [address], [facility], 10/22/2023 16:29:00
--- OUTSIDE RECORDS SUMMARY | 2024-11-20 08:06 | XMS_ITS | Encounter Summary ---
Author Organization [facility] Address [address] [place] [address] Care Team Providers Care Nnp Name Role Phone Enedina Mcguire NP Primary Care Provider [phone] Source Comments This information has been disclosed [...] release of HIV test results or diagnoses. [id number] Encounter Details Date Type Department Care Team (Late st Contact Info) Description 10/26/2024 Chart Note [facility] Liver Transplant at [address] [place] [address] Geri Vasquez, ЮЛИЯ Social History Tobacco Use [...] Recorded In the past 12 months has [employer], gas, oil, or water [employer] threatened to shut off services in your [...] [facility] ENDOSCOPY [address] [place] [address] Chris Orosco MD [address] [place] [phone] 12/05/2024 8:01 AM EDT - 12/05/2024 8:31 AM EDT Surgery [facility] ENDOSCOPY [address] [place] [address] Chris Orosco MD [address] [place] [address] EGD Scheduled Procedures Name Priority Associated Diagnoses [...] documented as of this encounter Care Teams Nnp Relationship Specialty Start Date End Date Enedina Mcguire NP [address] [place] [address] PCP - General Internal Medicine 10/05/24 documented as of this encounter
--- OUTSIDE RECORDS SUMMARY | 2024-11-20 08:06 | XMS_ITS | Encounter Summary ---
Author Organization [facility] Address [address] [place] [address] Care Team Providers Care Caving Guide Name Role Phone Enedina Mcguire NP Primary Care Provider [phone] Source Comments This information has been disclosed [...] release of HIV test results or diagnoses. [id number] Encounter Details Date Type Department Care [...] Recorded In the past 12 months has [employer], oil, or water [employer] threatened to shut off services in [...] Encounter [facility] ENDOSCOPY [address] [place] [address] Chris Orosco MD [address] [place] [address] 12/05/2024 8:01 AM EDT - 12/05/2024 8:31 AM EDT Surgery [facility] ENDOSCOPY [address] [place] [address] Chris Orosco MD [address] [place] [phone] EGD Scheduled Procedures Name Priority Associated Diagnoses [...] documented as of this encounter Care Teams Caving Guide Relationship Specialty Start Date End Date Enedina Mcguire NP [address] [place] [address] PCP - General Internal Medicine 10/05/24 documented as of this encounter
--- OUTSIDE RECORDS SUMMARY | 2024-11-20 08:06 | XMS_ITS | Encounter Summary ---
Author Organization [facility] Address [address] [place] [address] Care Team Providers Care Creative Writing Teacher Name Role Phone Enedina Mcguire NP Primary Care Provider [phone] Source Comments This information has been disclosed [...] release of HIV test results or diagnoses. [id number] Reason for Visit * Reason Comments DDLT patient instructions Encounter Details Date Type Department Care Team (Late st Contact Info) Description 10/25/2024 Telephone [facility] Liver Transplant at [address] [address] Krissy Crowell RN DDLT patient [...] Recorded In the past 12 months has [employer], gas, oil, or water [employer] threatened to shut off services in your [...] Patient will arrive to PACU, ETA is [phone]. Nursing Net C Developer (Humaira), PACU (Emily), SICU (Lizeth), OR (Omar), txp sgy resident (Aysha), and admitting (Loraine) called with updates on patient arrival. documented in this encounter Plan of Treatment Upcoming Encounters Date Type Department Care Team (Late st Contact Info) Description 12/05/2024 8:01 AM EDT Hospital Encounter [facility] ENDOSCOPY [address] [place] [address] Chris Orosco MD [address] [place] [address] 12/05/2024 8:01 AM EDT - 12/05/2024 8:31 AM EDT Surgery [facility] ENDOSCOPY [address] [place] [address] Chris Orosco MD [address] [place] [phone] EGD Scheduled Procedures Name Priority Associated Diagnoses [...] documented as of this encounter Care Teams Creative Writing Teacher Relationship Specialty Start Date End Date Enedina Mcguire NP [address] [place] [address] PCP - General Internal Medicine 10/05/24 documented as of this encounter
--- OUTSIDE RECORDS SUMMARY | 2024-11-20 08:08 | XMS_ITS | Encounter Summary ---
Author Organization [facility] Address [address] [place] [address] Care Team Providers Care Merchant Mill Utility Worker Name Role Phone Enedina Mcguire NP Primary Care Provider [phone] Source Comments This information has been disclosed [...] release of HIV test results or diagnoses. [id number] Encounter Details Date Type Department Care Team (Late st Contact Info) Description 10/22/2024 Chart Note [facility] Kidney Transplant at [address] [place] [address] Gladis Rainey RN Received most recent [...] Recorded In the past 12 months has [employer], gas, oil, or water [employer] threatened to shut off services in your [...] Rainey RN - 10/22/2024 1:51 PM EDT [facility] VERIFICATION CHECK FORM Julien Anderson [id number] or answer yes or no next to each item to note you have verified the information for listing on this patient in [facility]. First Name nh Last Name md Middle Initial N/a Date of md SS# md Center ID# (MRN) md ABO x 2 md / md I have verified the two (2) blood type results for this candidate are the same blood type and matchthe results reported in UNet. 2728 date [facility] N/a 2728 date [facility] N/a If patient is not on Dialysis Verify date of GFR and GFR 19 on 08/13/24 *Meets CKD Criteria for [facility] listing today with today eGFR 21 on 10/22/24 *Kidney checked in Liver registration as additional organ Listing date in [facility] match nh Listing date notification letter match [facility] Updated consent on file [x] Yes [] [...] Team documentation Nephrology within the last year md call worker person within the last year md Dietitian within the last year md Finance within the last year md Pharmacy within the last year md Initial surgery assessment md RN coordinator documentation nh * Terra Pyle RN - 10/22/2024 1:51 PM EDT OS VERIFICATION CHECK FORM Julien Anderson [id number] [address]s or answer yes or [...] UNet. 2727 date [facility] N/A 2727 date [facility] N/A If patient is not on Dialysis Verify date of GFR and GFR 19 on 08/13/24 Verified that liver was checked on kidney registration Verified that kidney was checked on liver registration Listing date in [facility] match MW Listing date notification letter match [facility] Updated consent on file [...] documentation Nephrology within the last year MW call worker person within the last year MW Dietitian within the last year MW Finance within the last year MW Pharmacy within the last year MW Initial surgery assessment RN coordinator documentation MW documented in this encounter Plan of Treatment Upcoming Encounters Date Type Department Care Team (Late st Contact Info) Description 12/05/2024 8:01 AM EDT Hospital Encounter [facility] ENDOSCOPY [address] [place] [address] Chris Orosco MD [address] [place] [phone] 12/05/2024 8:01 AM EDT - 12/05/2024 8:31 AM EDT Surgery [facility] ENDOSCOPY [address] [place] [address] Chris Orosco MD [address] [place] [phone] EGD Scheduled Procedures Name Priority Associated Diagnoses [...] documented as of this encounter Care Teams Merchant Mill Utility Worker Relationship Specialty Start Date End Date Enedina Mcguire NP [address] [place] [address] PCP - General Internal Medicine 10/05/24 documented as of this encounter
--- OUTSIDE RECORDS SUMMARY | 2024-11-20 08:08 | XMS_ITS | Encounter Summary ---
Author Organization [facility] Address [address] [place] [address] Care Team Providers Care Consumer Marketing Specialist Name Role Phone Enedina Mcguire NP Primary Care Provider [phone] Source Comments This information has been disclosed [...] release of HIV test results or diagnoses. [id number] Encounter Details Date Type Department Care Team (Late st Contact Info) Description 10/22/2024 Chart Note [facility] Liver Transplant at [address] [place] [phone] Mary Butler, RN [facility] VERIFICATION CHECK FORM [...] Recorded In the past 12 months has [employer], [employer], oil, or water [employer] threatened to shut off services in your [...] Multidisciplinary Team documentation Initial Hepatology assessment sb pediatric social worker within the last year sb Dietitian [...] Multidisciplinary Team documentation Initial Hepatology assessment nlc pediatric social worker within the last year nlc Dietitian [...] Encounter [facility] ENDOSCOPY [address] [place] [address] Chris Orosco MD [address] [place] [address] 12/05/2024 8:01 AM EDT - 12/05/2024 8:31 AM EDT Surgery [facility] ENDOSCOPY [address] [place] [address] Chris Orosco MD [address] [place] [phone] EGD Scheduled Procedures Name Priority Associated Diagnoses Date/Ti me EGD Cirrhosis of liver with ascites, unspecified hepatic cirrhosis type ([facility]-HCC) 12/05/2024 8:01 AM EDT documented as of this encounter Visit Diagnoses Not on filedocumented in this encounter Additional Health Concerns Infection Onset Date Last Indicated Resolved Time C. difficile 09/09/2024 09/09/2024 10/27/2024 8:30 AM EDT Assessment Noted Time PHQ-9 Depression Total Score: 17 025 11:00 AM EDT documented as of this encounter Care Teams Consumer Marketing Specialist Relationship Specialty Start Date End Date Enedina Mcguire NP [address] [place] [address] PCP - General Internal Medicine 10/05/24 documented as of this encounter
--- OUTSIDE RECORDS SUMMARY | 2024-11-20 08:08 | XMS_ITS | Encounter Summary ---
Author Organization [facility] Address [address] [place] [address] Care Team Providers Care Shelf Filler Name Role Phone Unavailable Primary Care [...] release of HIV test results or diagnoses. [id number] Health Encounter Details Date Type Department Care Team (Late st Contact Info) Description 09/24/2024 Orders Only [facility] Gastroenterology at [facility] [address] [place] [address] Gerri Peterson MD [address] [place] [address] Cirrhosis of liver with ascites, [...] Recorded In the past 12 months has [employer], gas, oil, or water company threatened [...] EDT Hospital Encounter [facility] ENDOSCOPY [address] [place] [address] Chris Orosco MD [address] [place] [address] 12/05/2024 8:01 AM EDT - 12/05/2024 8:31 AM EDT Surgery [facility] ENDOSCOPY [address] [place] [address] Chris Orosco MD [address] [place] [address] EGD Scheduled Orders Name Type Priority Associated [...] ORDERABL ES Final Result Performing Organization Address City/[facility]/ZIP Co de Phone Number [facility] [address] * (ABNORMAL) Body fluid cell count [...] ORDERABL ES Final Result Performing Organization Address City/[facility]/ZIP Co de Phone Number [facility] [address] [facility] documented in this encounter Visit Diagnoses Diagnosis Cirrhosis of liver with ascites, unspecified hepatic cirrhosis type (CMS-HCC)- Primary Cirrhosis of liver with ascites, unspecified hepatic cirrhosis type (CMS-HCC) documented in this encounter Additional Health Concerns Infection Onset Date Last Indicated Resolved Time C. difficile 09/09/2024 09/09/2024 10/27/2024 8:30 AM EDT documented as of this encounter
--- OUTSIDE RECORDS SUMMARY | 2024-11-20 08:08 | XMS_ITS | Encounter Summary ---
Author Organization [facility] [place] Address [address] [place] [address] Care Team Providers Care District Associate Judge Name Role Phone Enedina Mcguire NP Primary Care Provider [phone] Source Comments This information has been disclosed [...] release of HIV test results or diagnoses. [id number] Encounter Details Date Type Department Care Team (Late st Contact Info) Description 10/26/2024 Chart Note [facility] Kidney Transplant at [address] [place] [address] Geri Vasquez, ЮЛИЯ Social History Tobacco Use [...] Recorded In the past 12 months has [employer], gas, oil, or water [employer] threatened to shut off services in your [...] Description 12/05/2024 8:01 AM EDT Hospital Encounter [facility] ENDOSCOPY [address] [place] [address] Chris Orosco MD [address] [place] [address] 12/05/2024 8:01 AM EDT - 12/05/2024 8:31 AM EDT Surgery [facility] ENDOSCOPY [address] [place] [address] Chris Orosco MD [address] [place] [address] EGD Scheduled Procedures Name Priority Associated Diagnoses [...] as of this encounter Care Teams District Associate Judge Relationship Specialty Start Date End Date Enedina Mcguire NP [address] [place] [address] PCP - General Internal Medicine 10/05/24 documented as of this encounter
--- OUTSIDE RECORDS SUMMARY | 2024-11-20 08:08 | XMS_ITS | Encounter Summary ---
Author Organization [facility] Address [address] [place] [address] Care Team Providers Care Ultrasonic Tester Name Role Phone Enedina Mcguire NP Primary Care Provider [phone] Source Comments This information has been disclosed [...] release of HIV test results or diagnoses. [id number] Health Encounter Details Date Type Department Care Team (Late st Contact Info) Description 10/22/2024 Chart Note [facility] [address] [place] [address] Aaron Gonzalez MD [address] [phone] Candidacy for a simultaneous liver-kidney transplant Social [...] Recorded In the past 12 months has [employer], gas, oil, or water [email or web address] threatened to shut off services in your [...] as of this encounter Progress Notes * aAron Gonzalez MD - 10/22/2024 12:41 PM EDT [...] disease (ESRD) patient in a hospital based, memorial hospital and manor-hospital based, or home setting. -At the time [...] I have discussed this plan with the coordinator cardiopulmonary services and the liver transplant team. documented in this encounter Plan of Treatment Upcoming Encounters Date Type Department Care Team (Late st Contact Info) Description 12/05/2024 8:01 AM EDT Hospital Encounter [facility] ENDOSCOPY [address] [place] [address] Chris Orosco MD [address] [place] [address] 12/05/2024 8:01 AM EDT - 12/05/2024 8:[address] [facility] ENDOSCOPY [address] [place] [address] Chris Orosco MD [address] [place] [phone] EGD Scheduled Procedures Name Priority Associated Diagnoses [...] documented as of this encounter Care Teams Ultrasonic Tester Relationship Specialty Start Date End Date Enedina Mcguire NP [address] [place] [address] PCP - General Internal Medicine 10/05/24 documented as of this encounter
--- OUTSIDE RECORDS SUMMARY | 2024-11-20 08:08 | XMS_ITS | Encounter Summary ---
Author Organization [facility] Address [address] [place] [address] Care Team Providers Care Bobbin Hauler Name Role Phone Enedina Mcguire NP Primary Care Provider [phone] Source Comments This information has been disclosed [...] release of HIV test results or diagnoses. [id number] Encounter Details Date Type Department Care Team (Late st Contact Info) Description 10/22/2024 Status Update [facility] Kidney Transplant at [facility] [address] [facility] [address] [place] [address] Aaron Gonzalez MD [address] [facility] [place] [address] Social History Tobacco Use Types Packs/Day Years Used Date Smoking Tobacco: Former Cigarettes Smokeless Tobacco: Current Alcohol Use Standard Drinks/Week Comments Yes 0 (1 standard drink = 0.6 oz pure alcohol) History of alcohol abuse, reports no use in 3 week- typically endorses use as 4 glasses of wine a days Utilities Answer Date Recorded In the past 12 months has [employer], gas, oil, or water [employer] threatened to shut off services in [...] 12/05/2024 8:01 AM EDT Hospital Encounter [facility] ENDOSCOPY [address] [place] [address] Chris Orosco MD [address] [place] [address] 12/05/2024 8:01 AM EDT - 12/05/2024 8:31 AM EDT Surgery [facility] ENDOSCOPY [address] [facility] [address] Chris Orosco MD [address] [place] [address] EGD Scheduled Procedures Name Priority Associated Diagnoses [...] documented as of this encounter Care Teams Bobbin Hauler Relationship Specialty Start Date End Date Enedina Mcguire NP [address] [place] [address] PCP - General Internal Medicine 10/05/24 documented as of this encounter
--- OUTSIDE RECORDS SUMMARY | 2024-11-20 08:08 | XMS_ITS | Encounter Summary ---
Author Organization [facility] Address [address] [place] [address] Care Team Providers Care Mill Control Operator Name Role Phone Enedina Mcguire NP Primary Care Provider + [phone] Maureen Pantoja RN Unavailable Unavail able Source [...] release of HIV test results or diagnoses. [id number] Reason for Visit * Reason Comments Results Encounter Details Date Type Department Care Team (Riky st Contact Info) Description 11/18/2024 Telephone [facility] Liver Transplant at [address] [address] Maureen Pantoja, RN Results Social [...] In the past 12 months has [employer], gas, oil, or water [employer] threatened to shut off services in your [...] Progress Notes * Maureen Pantoja RN - 11/18/2024 9:15 AM EDT Lab results from 11/13/24 reviewed. Renal panel stable. Alk phos 137 (from 125) and AST/ALT (from ). FK 10.9 Patient is repeating labs today. Will follow-up on results. documented in this encounter Plan of Treatment Upcoming Encounters Date Type Department Care Team (Late st Contact Info) Description 12/05/2024 8:01 AM EDT Hospital Encounter [facility] ENDOSCOPY [address] [place] [phone] Chris Orosco MD [address] [place] [phone] 12/05/2024 8:01 AM EDT - 12/05/2024 8:31 AM EDT Surgery [facility] ENDOSCOPY [address] [place] [phone] Chris Orosco MD [address] [place] [phone] EGD Scheduled Procedures Name Priority Associated Diagnoses [...] documented as of this encounter Care Teams Mill Control Operator Relationship Specialty Start Date End Date Enedina Mcguire NP [address] [place] [address] PCP - General Internal Medicine 10/05/24 Maureen Pantoja, RN Txp Post Coordinator Transplant Hepatology 10/28/24 documented as of this encounter
--- OUTSIDE RECORDS SUMMARY | 2024-11-20 08:08 | XMS_ITS | Encounter Summary ---
Author Organization [facility] Address [facility] [place] [address] Care Team Providers Care Phone Technician Name Role Phone Unavailable Primary Care [...] release of HIV test results or diagnoses. [id number] Reason for Visit * Reason Comments After Hours Call Encounter Details Date Type Department Care Team (Late st Contact Info) Description 09/02/2024 Telephone [facility] PATIENT [facility] [address] [place] [address] Unknown, Attending Provider After Hours [...] Recorded In the past 12 months has [employer], gas, oil, or water [email or web address] threatened to shut off services in your [...] acting aggressively? 3 09/29/2024 11:00 AM EDT Liezth Warren PsyD Having difficulty concentrating? 3 09/30/19 [...] to Patient and Callback: ALICIA ([facility]) [phone] Patient of: DR. LINARES Nature of Call: CRITICAL LAB RESULT Rn Training Provider Contacted: DR. VINES Time and Method of Contact:PAGED @ 8:54PM Advise Caller: If provider does not call back within 30 minutes, please call us back. ROUTE TELEPHONE NOTE - Follow Qgenda and/or Route Directly to Provider. COPY this note into [facility] chat. documented in this encounter Plan of Treatment Upcoming Encounters Date Type Department Care Team (Late st Contact Info) Description 12/05/2024 8:01 AM EDT Hospital Encounter [facility] ENDOSCOPY [address] [place] [address] Chris Orosco MD [address] [place] [phone] 12/05/2024 8:01 AM EDT - 12/05/2024 8:31 AM EDT Surgery [facility] ENDOSCOPY [address] [place] [address] Chris Orosco MD [address] [place] [address] EGD Scheduled Procedures Name Priority Associated Diagnoses [...]
--- OUTSIDE RECORDS SUMMARY | 2024-11-20 08:08 | XMS_ITS | Encounter Summary ---
Author Organization [facility] Address [facility] [place] [address] Care Team Providers Care Traffic Supervisor Name Role Phone Enedina Mcguire NP Primary Care Provider [phone] Source Comments This information has been disclosed [...] release of HIV test results or diagnoses. [id number] Health Encounter Details Date Type Department Care Team (Late st Contact Info) Description 10/22/2024 Orders Only [facility] [address] [place] [address] Abdulkadir Gaspar MD [address] [facility] [address] [place] [address] Social History Tobacco Use Types Packs/Day Years Used Date Smoking Tobacco: Former Cigarettes Smokeless Tobacco: Current Alcohol Use Standard Drinks/Week Comments Yes 0 (1 standard drink = 0.6 oz pure alcohol) History of alcohol abuse, reports no use in 3 week- typically endorses use as 4 glasses of wine a days Utilities Answer Date Recorded In the past 12 months has [employer], gas, oil, or water company threatened to [...] Encounter [facility] ENDOSCOPY [address] [place] [address] Chris Orsoco MD [address] [place] [phone] 12/05/2024 8:01 AM EDT - 12/05/2024 8:31 AM EDT Surgery [facility] ENDOSCOPY [address] [place] [address] Chris Orosco MD [address] [place] [address] EGD Scheduled Procedures Name Priority Associated Diagnoses [...] [facility] [address] [facility] [place] [place] [address] documented in this encounter Visit Diagnoses Not on filedocumented in this encounter Additional Health Concerns Infection Onset Date Last Indicated Resolved Time C. difficile 09/09/2024 09/09/2024 10/27/2024 8:30 AM EDT Assessment Noted Time PHQ-9 Depression Total Score: 17 025 11:00 AM EDT documented as of this encounter Care Teams Traffic Supervisor Relationship Specialty Start Date End Date Enedina Mcguire NP [address] [place], [place] [phone] PCP - General Internal Medicine 10/05/24 documented as of this encounter
--- OUTSIDE RECORDS SUMMARY | 2024-11-20 08:08 | XMS_ITS | Encounter Summary ---
Author Organization [facility] Address [facility] [place] [address] Care Team Providers Care Logistics Account Manager Name Role Phone Enedina Mcguire NP Primary Care Provider [phone] Source Comments This information has been disclosed [...] release of HIV test results or diagnoses. [id number] Health Encounter Details Date Type Department Care Team (Late st Contact Info) Description 10/27/2024 Orders Only [facility] [address] [place] [address] Abdulkadir Gaspar MD [address] [facility] [address] [place] [address] Social History Tobacco Use Types Packs/Day Years Used Date Smoking Tobacco: Former Cigarettes Smokeless Tobacco: Current Alcohol Use Standard Drinks/Week Comments Yes 0 (1 standard drink = 0.6 oz pure alcohol) History of alcohol abuse, reports no use in 3 week- typically endorses use as 4 glasses of wine a days Utilities Answer Date Recorded In the past 12 months has [employer], gas, oil, or water company threatened [...] Hospital Encounter [facility] ENDOSCOPY [address] [place] [address] Chris Orosco MD [address] [place] [phone] 12/05/2024 8:01 AM EDT - 12/05/2024 8:31 AM EDT Surgery [facility] ENDOSCOPY [address] [place] [address] Chris Orosco MD [address] [place] [address] EGD Scheduled Procedures Name Priority Associated Diagnoses [...] MD LAB BLOOD ORDERABLES Final Resul t [facility] [address] [facility] [place] [address] documented in this encounter Visit Diagnoses Not on filedocumented in this encounter Additional Health Concerns Infection Onset Date Last Indicated Resolved Time C. difficile 09/09/2024 09/09/2024 10/27/2024 8:30 AM EDT Assessment Noted Time PHQ-9 Depression Total Score: 17 025 11:00 AM EDT documented as of this encounter Care Teams Logistics Account Manager Relationship Specialty Start Date End Date Enedina Mcguire NP [address] [place], [place] [phone] PCP - General Internal Medicine 10/05/24 documented as of this encounter
--- OUTSIDE RECORDS SUMMARY | 2024-11-20 08:08 | XMS_ITS | Encounter Summary ---
Author Organization [facility] Address [facility] [place] [address] Care Team Providers Care Ward Clerk Name Role Phone Unavailable Primary Care [...] release of HIV test results or diagnoses. [id number] Reason for Visit * Reason Comments Orders Order Clarification Request Encounter Details Date Type Department Care Team (Late st Contact Info) Description 09/23/2024 Telephone [facility] Gastroenterology at [facility] [address] [place] [phone] Gerri Peterson MD [address] [place] [address] Orders (Order Clarification Request/) Social [...] Recorded In the past 12 months has [employer], gas, oil, or water company threatened to [...] requested. I was transferred tolab staff manager telemarketing. No answer. Message left to please indicate the lab orders that they are in need of and we will fax the orders. RN provided direct nurse line as well as main number for call back with this information. * Telephone Encounter - Carina Quezada - 09/24/2024 9:48 AM EDT Madina with [facility] called to follow-up on faxed received. Madina needing clarification on fax cover sheet note she received regarding clarifying lab protocol. Madina requesting osiel back to clarify at [phone] (ask for Madina) * Telephone Encounter - Alondra Reese MA - 09/23/2024 1:36 PM EDT Requesting bloodwork orders be placed and done biweekly. documented in this encounter Plan of Treatment Upcoming Encounters Date Type Department Care Team (Late st Contact Info) Description 12/05/2024 8:01 AM EDT Hospital Encounter [facility] ENDOSCOPY [address] [place] [phone] Chris Orosco MD [address] [place] [phone] 12/05/2024 8:01 AM EDT - 12/05/2024 8:31 AM EDT Surgery [facility] ENDOSCOPY [address] [place] [phone] Chris Orosco MD [address] [place] [phone] EGD Scheduled Procedures Name Priority Associated Diagnoses Date/Ti sc EGD Cirrhosis of liver with ascites, unspecified hepatic cirrhosis type ([facility]) 12/05/2024 8:01 AM EDT documented as of this encounter Visit Diagnoses Not on filedocumented in this encounter Additional Health Concerns Infection Onset Date Last Indicated Resolved Time C. difficile 09/09/2024 09/09/2024 10/27/2024 8:30 AM EDT documented as of this encounter
--- OUTSIDE RECORDS SUMMARY | 2024-11-20 08:09 | XMS_ITS | Encounter Summary ---
Author Organization [facility] Address [address] [place] [address] Care Team Providers Care Mercerizer Machine Operator Name Role Phone Enedina Mcguire NP Primary Care Provider + [phone] Maureen Pantoja RN Unavailable Unavail able Source [...] release of HIV test results or diagnoses. [id number] Health Encounter Details Date Type Department Care Team (Late st Contact Info) Description 11/18/2024 Chart Note [facility] Liver Transplant at [address] [place] [phone] Marlene Ro MA Social History Tobacco Use [...] Recorded In the past 12 months has [employer], gas, oil, or water [employer] threatened to shut off services in your [...] Encounter [facility] ENDOSCOPY [address] [place] [address] Chris Orosco MD [address] [place] [phone] 12/05/2024 8:01 AM EDT - 12/05/2024 8:31 AM EDT Surgery [facility] ENDOSCOPY [address] [place] [address] Chris Orosco MD [address] [place] [phone] EGD Scheduled Procedures Name Priority Associated Diagnoses Date/Ti me EGD Cirrhosis of liver with ascites, unspecified hepatic cirrhosis type (CMS-HCC) 12/05/2024 8:01 AM EDT documented as of this encounter Procedures Procedure Name Priority Date/Time Associated Diagnosis Comments HEPATIC FUNCTION PANEL Routine 11/13/2024 8:44 AM EDT TACROLIMUS LEVEL Routine 11/13/2024 8:44 AM EDT CBC AND DIFFERENTIAL Routine 11/13/2024 8:44 AM EDT RENAL FUNCTION PANEL W/O EGFR Routine 11/13/2024 8:44 AM EDT documented in this encounter Results * (ABNORMAL) Renal Function Panel w/o EGFR (11/13/2024 8:44 AM EDT) Glucose 108 mg/dL BUN 25(A) 4 - [...] 5.0 g/dL Blood Narrative Resulting Agency Comment [facility] Result [facility] MD LAB BLOOD ORDERABLES Denisse l Result * Tacrolimus level (11/13/2024 8:44 AM EDT) Pathologist [facility] Tacrolimus Lvl 10.9 6 - 15 ng/mL Whole Blood Narrative Resulting Agency Comment [facility] Result [facility] MD LAB BLOOD ORDERABLES Denisse l Result * (ABNORMAL) CBC and differential (11/13/2024 8:44 AM EDT) Pathologist [facility] Hemoglobin 9.8(A) 13.5 - 17.5 g/dL Hematocrit [...] 5.7 10^3/mL Blood Narrative Resulting Agency Comment [facility] Result [facility] MD LAB BLOOD ORDERABLES Denisse l Result * (ABNORMAL) Hepatic Function Panel (11/13/2024 8:44 AM EDT) Pathologist [facility] Bilirubin, Direct 0.6 Bilirubin, Indirect 0.2 Alkaline Phosphatase 137 U/L ALT 29 U/L AST 20 U/L Total Bilirubin 0.8 0.1 - 1.4 mg/dL Total Protein 5.8(A) 6.4 - 8.2 g/dL Plasma Narrative Resulting Agency Comment [facility] us Historical Provider LAB BLOOD ORDERABLES Denisse l Result documented in this encounter Visit Diagnoses Not on filedocumented in this encounter Additional Health Concerns Infection Onset Date Last Indicated Resolved Time 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
--- OUTSIDE RECORDS SUMMARY | 2024-11-20 08:09 | XMS_ITS | Encounter Summary ---
Author Organization [employer] ([place], [place], [place], [place]) Address [address] [place] [address] Care Team Providers Care Rug Weaver Name Role Phone Unavailable Primary Care Provider Unavailabl e Encounter Details Date Type Department Care Team (Late st Contact Info) Description 06/03/2018 Transcribed Document [facility] [place] [facility] [address] [place] [address] ProviderEbenezer MD [address] [place], [place] [phone] Social History Tobacco Use Types Packs/Day Years [...] - Historical ProviderMD - 06/03/2018 3:03 PM INDUSTRIAL CONTROLLER ED Discharge Entered On: 06/03/2018 15:03 EST Performed On: 06/03/2018 15:03 EST by Lizeth Almeida, rubbing bed operator Process Patient Disposition : Discharge Personal Belongings [...] 06/03/2018 15:03 EST Electronically signed by Gabriela [facility] Conversion Supervisor Concrete Block Plant Celia at 08/29/2022 6:35 PM CDT documented in this encounter Plan of Treatment Not on file documented as of this encounter Visit Diagnoses Not on filedocumented in this encounter
--- OUTSIDE RECORDS SUMMARY | 2024-11-20 08:09 | XMS_ITS | Encounter Summary ---
Author Organization [employer] ([place], [place], [place], [place]) Address [address] [place] [address] Care Team Providers Care Hair Cutter Name Role Phone Unavailable Primary Care Provider Unavailabl e Encounter Details Date Type Department Care Team (Late st Contact Info) Description 06/03/2018 Transcribed Document [facility] [address] [place] [address] ProviderEbenezer MD [address] [place], [place] [phone] Social History Tobacco Use Types Packs/Day Years [...] - Historical ProviderMD - 06/03/2018 12:08 PM EGG GATHERER ED Assessment Entered On: 06/03/2018 14:51 EST Performed On: 06/03/2018 13:50 EST by Lizeth Almeida, DRUM SANDER OFFBEARER Quick Look Assessment Level of Consciousness : Alert Affect/Behavior : Calm, Cooperative Orientation : Oriented x 4 Skin Color : Other: [place] Skin Temperature : Warm Skin Description : Dry Lizeth Almeida, RN - 06/03/2018 14:50 EST ED General-Functional Assess Communication Barrier : None Primary Language : Syriac Any Spiritual/Cultural Needs or Requests : No [...]
--- OUTSIDE RECORDS SUMMARY | 2024-11-20 08:09 | XMS_ITS | Encounter Summary ---
Author Organization [facility] Address [address] [place] [address] Care Team Providers Care Budget Clerk Name Role Phone Enedina Mcguire NP Primary Care Provider [phone] Source Comments This information has been disclosed [...] release of HIV test results or diagnoses. [id number] Encounter Details Date Type Department Care Team (Late st Contact Info) Description 10/22/2024 Telephone [facility] Liver Transplant at [address] [phone] Mary Butler, RN Social History Tobacco Use [...] Recorded In the past 12 months has [employer], gas, oil, or water [employer] threatened to shut off services in your [...] will need ~[address] [facility]. documented in this encounter Plan of Treatment Upcoming Encounters Date Type Department Care Team (Late st Contact Info) Description 12/05/2024 8:01 AM EDT Hospital Encounter [facility] ENDOSCOPY [address] [place] [phone] Chris Orosco MD [address] [place] [phone] 12/05/2024 8:01 AM EDT - 12/05/2024 8:31 AM EDT Surgery [facility] ENDOSCOPY [address] [place] [address] Chris Orosco MD [address] [place] [phone] EGD Scheduled Procedures Name Priority Associated Diagnoses [...] documented as of this encounter Care Teams Budget Clerk Relationship Specialty Start Date End Date Enedina Mcguire NP [address] [place] [address] PCP - General Internal Medicine 10/05/24 documented as of this encounter
--- OUTSIDE RECORDS SUMMARY | 2024-11-20 08:09 | XMS_ITS | Clinical Summary ---
Author Organization [employer] ([place], [place], [place], [place]) Address [address] [place] [address] Care Team Providers Care Insulation Estimator Name Role Phone Unavailable Primary Care Provider [...]
--- OUTSIDE RECORDS SUMMARY | 2024-11-20 08:09 | XMS_ITS | Encounter Summary ---
Author Organization [employer] ([place], [place], [place], [place]) Address [address] [place] [address] Care Team Providers Care Patent Counsel Name Role Phone Unavailable Primary Care Provider Carmen e Encounter Details Date Type Department Care Team (Late st Contact Info) Description 06/03/2018 Transcribed Document [facility] [place] [facility] [address] [place] [address] ProviderEbenezer MD [address] [place] [address] Social History Tobacco Use Types [...] - Historical ProviderMD - 06/03/2018 3:04 PM CROWN ASSEMBLY MACHINE OPERATOR [address] [place] [address] Patient Information Name: JULIEN ZELAYA Age: 33 Years Date of : 1985 Arrival Time: 06/03/2018 12:08:00 Diagnosis Laceration of finger of left hand; Laceration of finger of right hand Primary Care Physician: SALLY EEVRETT (REF) T Provider Information Primary Provider: DOMINIQUE BREWER PA-C Secondary Provider: JULIEN ZELAYA has been given the following list of patient education materials, prescriptions and follow-up instructions: Follow-up Instructions: With: Address: When: Return to Emergency Department Within 2 weeks Comments: Return for suture/staple removal With: Address: When: SALLY (REF) MARGUERITE PURI # [address] [place] [address] [place] [address] [employer] (1) Within 2 to 3 days Patient [...] off of the skin. General Instructions??? Take [id number] and prescription medicines only as told by [...] 04/30/2006 Document Revised: 09/29/2016 Document Reviewed: 04/26/2015 [employer] Patient Education ? 2017 [employer] Allergies: No Known Medication Allergies Medication [...] verify that JULIEN ZELAYA was seen at [facility] Emergency Department on ,06/03/2018 15:04:17. This [...] Assistance with quitting is available by contacting 7-554-QLNU-NOW. This is a free resource providing counseling, [...] Electronic Communications Privacy Act 18 U.S.C. ???Sections 4539-1864,?? and contain information intended for the specified [...] sure to sign up for the [facility] patient portal, which gives you 04/12 access to your medical information ??? including these discharge instructions ??? using your computer, smartphone, or tablet. Just go to [employer] to get started. Questions? Call . Acknowledgment [...]
--- OUTSIDE RECORDS SUMMARY | 2024-11-20 08:09 | XMS_ITS | Encounter Summary ---
Author Organization [facility] Address [address] [place] [address] Care Team Providers Care Service Dog Trainer Name Role Phone Enedina Mcguire NP Primary Care Provider [phone] Source Comments This information has been disclosed [...] release of HIV test results or diagnoses. [id number] Encounter Details Date Type Department Care Team (Late st Contact Info) Description 10/25/2024 Telephone [facility] Liver Transplant at [address] [address] Krissy Crowell RN Social History Tobacco Use [...] Recorded In the past 12 months has [employer], gas, oil, or water [employer] threatened to shut off services in your [...] granted: N/A OPO: CHACHA OPO Contact: Kiet [phone] Recent illnesses (surgeon aware) [x] Yes [] [...] to bring equipment or solution to [facility]. They will get supplies from dialysis [...] Notifications: Department Phone Comments Time/Name Capacity Management [phone] Notified of patient's pending TXP ORGANS: Liver Kidney Time: Spoke to: OR [phone] OR scheduled for: per Dr. Domínguez Recipient in the OR time 10/25/2024 @ 2200 Acute donor Risk (according to OPTN policy) YES (HCV, HBV, HIV, COVID) Notified Donor is DCD Time: 1145, spoke to Faraz OR signal apprentice: Gladys RAMIREZ ORGAN Time: yes 1155 BLOOD BANK [phone] For Liver and Heart only Spoke to [place] 1218 Nursing Research And Development Director [phone] [address] delayed [place] [facility] [place]8 PACU or Sameday [phone] Delayed call in: If recipient OR is 2 hrs or less from admission, call PACU/Sameday (basedon where nursing travel information center supervisor assigns patient) Abdominal Transplant 8CCP [phone] Transfer of care reported for abdominal txp Notified of dialysis type and last session if applicable Time: 8CCP signal apprentice: SICU [phone] Notify about abdominal txp admissions Time: 1215 SICU signal apprentice: Aleks Transplant Surgery Resident/PA QGenda Time: 1219 Spoke to: Dr. Corbett Transplant Surgery Fellow QGenda Time: 1200 Spoke to: Sveta Mojica MD Transplant Research Team [phone] Time: 1218 Spoke to: Macey If applicable, Dialysis Unit EMR Time: Spoke to: Pharmacy IV Room [phone] Liver Only Contact pharmacy to alert that HBIG will be needed when all the following are present: Donor: *HBsAg negative *HBV DNA/KIANA negative Recipient: *HBsAg positive *HBV DNA is detectable on most recent check Time: Spoke to: Heart Transplant CVICU [phone] Transfer of care reported for heart txp Time: CVICU signal apprentice: Email notification to Transplant Team(s) and OR signal apprentice. [Send the following information below to the [...] Venoveno bypass: No Donor info: Donor ID: [id number] Match ID: [id number] Anti-HBc: Negative HBV KIANA: Negative HBsAg: Negative [...] 12/05/2024 8:01 AM EDT Hospital Encounter [facility] ENDOSCOPY [address] [place] [address] Chris Orosco MD [address] [place] [phone] 12/05/2024 8:01 AM EDT - 12/05/2024 8:31 AM EDT Surgery [facility] ENDOSCOPY [address] [place] [phone] Chris Orosco MD [address] [place] [phone] EGD Scheduled Procedures Name Priority Associated Diagnoses Date/Ti me EGD Cirrhosis of liver with ascites, unspecified hepatic cirrhosis type ([facility]) 12/05/2024 8:01 AM EDT documented as of this encounter Visit Diagnoses Not on filedocumented in this encounter Additional Health Concerns Infection Onset Date Last Indicated Resolved Time C. difficile 09/09/2024 09/09/2024 10/27/2024 8:30 AM EDT Assessment Noted Time PHQ-9 Depression Total Score: 17 025 11:00 AM EDT documented as of this encounter Care Teams Service Dog Trainer Relationship Specialty Start Date End Date Enedina Mcguire NP [address] [place] [address] PCP - General Internal Medicine 10/05/24 documented as of this encounter
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
--- OUTSIDE RECORDS SUMMARY | 2024-11-20 08:09 | XMS_ITS | Encounter Summary ---
Author Organization [employer] ([place], [place], [place], [place]) Address [address] [place] [address] Care Team Providers Care Coil Machine Operator Name Role Phone Unavailable Primary Care Provider Unavailabl e Encounter Details Date Type Department Care Team (Late st Contact Info) Description 06/03/2018 Transcribed Document [facility] [place] [address] [place] [address] ProviderEbenezer MD [address] [place], [place] [id number] Social History Tobacco Use Types Packs/Day Years [...] - Historical ProviderMD - 06/03/2018 2:24 PM HVAC SERVICE TECHNICIAN Electronically signed by Gabriela [facility] Conversion Econometrician Cerner at 08/29/2022 6:41 PM CDT documented in this encounter Plan of Treatment Not on file documented as of this encounter Visit Diagnoses Not on filedocumented in this encounter
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
--- OUTSIDE RECORDS SUMMARY | 2024-11-20 08:09 | XMS_ITS | Encounter Summary ---
Author Organization [facility] Address [address] [place] [address] Care Team Providers Care Manager Cancer Name Role Phone Unavailable Primary Care Provider [...] release of HIV test results or diagnoses. [id number] Reason for Referral * (Routine) - Pending Review Specialty Diagnoses / Procedures Referred By Contac t Referred To Contact Radiology Diagnoses Cirrhosis of liver with ascites, unspecified hepatic cirrhosis type (CMS-HCC) Procedures AMB Referral to Interventional Radiology (BODY IR) Gerri Peterson MD [address] [place] [address] Phone: tel: fax: Referral ID Status Reason Start Date Expiration Date V isits Requested Visits Authorized [id number] Pending Review 09/23/2024 03/22/2025 10 10 Reason for Visit * Reason Comments Orders Order Clarification Request Encounter Details Date Type Department Care Team (Late st Contact Info) Description 09/22/2024 Telephone [facility] Gastroenterology at [address] [address] Gerri Peterson MD [address] [place] [address] Orders (Order Clarification Request ) Social History [...] the past 12 months has th e [employer], [employer], oil, or water [employer] threatened to shut off services in your [...] 5:26 PM EDT RN faxed order to [phone] * Telephone Encounter - Alondra Reese MA - 09/23/2024 1:35 PM EDT Pt requesting a Standing order for parenthesis to have done 2x a week. * Telephone Encounter - Tamar Blackwood - 09/22/2024 11:22 AM EDT Madina from [facility] asked to clarify paracentesis frequency. Julien had 9 liters removed last week, 7.5 today and asked to get scheduled this Sunday. Madina can be reached at [phone] documented in this encounter Plan of Treatment Upcoming Encounters Date Type Department Care Team (Late st Contact Info) Description 12/05/2024 8:01 AM EDT Hospital Encounter [facility] ENDOSCOPY [address] [place] [address] Chris Orosco MD [address] [place] [address] 12/05/2024 8:01 AM EDT - 12/05/2024 8:31 AM EDT Surgery [facility] ENDOSCOPY [address] [place] [address] Chris Orosco MD [address] [place] [address] EGD Scheduled Orders Name Type Priority Associated [...]
--- OUTSIDE RECORDS SUMMARY | 2024-11-20 08:09 | XMS_ITS | Encounter Summary ---
Author Organization [facility] Address [address] [place] [address] Care Team Providers Care Commodity Industry Analyst Name Role Phone Enedina Mcguire NP Primary Care Provider [phone] Source Comments This information has been disclosed [...] release of HIV test results or diagnoses. [id number] Encounter Details Date Type Department Care Team (Late st Contact Info) Description 10/22/2024 Chart Note [facility] Liver Transplant at [address] [place] [phone] Faraz Carballo RN 2nd ABO verified for [...] In the past 12 months has e [employer], gas, oil, or water [employer] threatened to shut off services in your [...] Description 12/05/2024 8:01 AM EDT Hospital Encounter [facility] ENDOSCOPY [address] [place] [address] Chris Orosco MD [address] [place] [phone] 12/05/2024 8:01 AM EDT - 12/05/2024 8:31 AM EDT Surgery [facility] ENDOSCOPY [address] [place] [address] Chris Orosco MD [address] [place] [phone] EGD Scheduled Procedures Name Priority Associated Diagnoses [...] as of this encounter Care Teams Commodity Industry Analyst Relationship Specialty Start Date End Date Enedina Mcguire NP [address] [place] [address] PCP - General Internal Medicine 10/05/24 documented as of this encounter
--- OUTSIDE RECORDS SUMMARY | 2024-11-20 08:09 | XMS_ITS | Referral Summary ---
Author Organization [employer] ([place], [place], [place], [place]) Address [address] [place] [address] Care Team Providers Care Alcohol Law Enforcement Agent Name Role Phone Unavailable Primary Care Provider [...]
--- OUTSIDE RECORDS SUMMARY | 2024-11-20 08:09 | XMS_ITS ---
Author Organization [facility] Address [address] [place] [address] Care Team Providers Care Clam Picker Name Role Phone Enedina Mcguire NP Primary Care Provider [phone] Maureen Pantoja RN Unavailable Unavail able Transplant Episode Kidney Recipient [facility] ([place] [place]) [facility] Organ Received: Left Kidney Transplanted on 10/27/2024 Marked as Active Follow-up on 10/27/2024 Kidney CoordinatorJosr Weber RN Phone: N/A Fax: N/A Email: N/A [place] [employer] Organ Diagnosis Organ Primary Contributory Kidney Hepatorenal [...] N/A N/A Flaquito Mayen MD Txp Surgeon [phone] N/A Bruno Gonzalez MD Txp Nuclear Medicine Pet Ct Technologist [phone] N/A Yovanny Curran MD Referring Physician [phone] N/A Events Post-Transplant Pre-Transplant Admitted: 10/25/2024 Referred: 10/07/2024 Transplanted: 10/27/2024 Evaluation began: Discharged: 11/02/2024 Committee: 10/20/2024 Center waitlisted: 5
--- OUTSIDE RECORDS SUMMARY | 2024-11-20 08:09 | XMS_ITS | Encounter Summary ---
Author Organization [facility] Address [address] [place] [address] Care Team Providers Care Nutritionist Name Role Phone Enedina Mcguire NP Primary Care Provider [phone] Source Comments This information has been disclosed [...] release of HIV test results or diagnoses. [id number] Encounter Details Date Type Department Care Team (Late st Contact Info) Description 10/22/2024 Chart Note [facility] Liver Transplant at [address] [place] [address] Mary Butler, RN Social History Tobacco Use [...] Recorded In the past 12 months has [employer], gas, oil, or water [employer] threatened to shut off services in your [...] Encounter [facility] ENDOSCOPY [address] [place] [address] Chris Orosco MD [address] [place] [address] 12/05/2024 8:01 AM EDT - 12/05/2024 8:31 AM EDT Surgery [facility] ENDOSCOPY [address] [place] [address] Chris Orosco MD [address] [place] [address] EGD Scheduled Procedures Name Priority Associated Diagnoses Date/Ti me EGD Cirrhosis of liver with ascites, unspecified hepatic cirrhosis type ([facility]) 12/05/2024 8:01 AM EDT [...] 3.2(A) 3.5 - 5.0 g/dL Blood Result [facility] Provider MD LAB BLOOD ORDERABLES Denisse [...] - 5.0 g/dL Blood Result [facility] LAB BLOOD ORDERABLES Denisse l Result * (ABNORMAL) Protime-INR (10/21/2024) INR 1.52(A) 0.9 - 1.1 Protime 16.4 Plasma Result [facility] LAB BLOOD ORDERABLES Denisse l Result * (ABNORMAL) Hepatic Function Panel (10/21/2024) Bilirubin, Direct 5.4 Alkaline Phosphatase 190 U/L ALT 32 U/L AST 57 U/L Total Bilirubin 7.3(A) 0.1 - 1.4 mg/dL Total Protein 5.4(A) 6.4 - 8.2 g/dL Plasma Result [facility] LAB BLOOD ORDERABLES Denisse l Result documented in this encounter Visit Diagnoses Not on filedocumented in this encounter Additional Health Concerns Infection Onset Date Last Indicated Resolved Time C. difficile 09/09/2024 09/09/2024 10/27/2024 8:30 AM EDT Assessment Noted Time PHQ-9 Depression Total Score: 17 025 11:00 AM EDT documented as of this encounter Care Teams Nutritionist Relationship Specialty Start Date End Date Enedina Mcguire NP [address] [place] [address] PCP - General Internal Medicine 10/05/24 documented as of this encounter
--- OUTSIDE RECORDS SUMMARY | 2024-11-20 08:09 | XMS_ITS | Encounter Summary ---
Author Organization [employer] ([place], [place], [place], [place]) Address [address] [place] [address] Care Team Providers Care Ase Certified Technician Name Role Phone Unavailable Primary Care Provider Unavailabl e Encounter Details Date Type Department Care Team (Late st Contact Info) Description 06/03/2018 Transcribed Document [facility] [place] Family Medicine [address] [place] [address] ProviderEbenezer MD [address] [place] [address] Social History Tobacco Use Types [...] - Historical ProviderMD - 06/03/2018 3:04 PM TAXIMETER REPAIRER [place] [address] [address] [place] [address] PERSON INFORMATION Name JULIEN ZELAYA Age 33 Years 1985 Sex Male Language Burkinan PCP SALLY EVERETT (REF) T Marital Status Single Med Service Emergency Medicine Acct# Arrival 06/03/2018 12:08:00 Visit Reason Finger laceration; CUT FINGERS Acuity 3 - Urgent LOS 000 02:56 Depart Date: 06/03/18 03:04 PM Address: [address] [facility] [address] Comment: PROVIDER INFORMATION Provider Role Assigned Unassigned Lizeth Almeida, EDUCATION PROGRAM ASSOCIATE Nurse 06/03/2018 12:39:09 DOMINIQUE BREWER PA-C ED [...] PURI # 2C [address] [place], [place] [id number] [facility] ([facility] Within 2 to 3 days Comment: Electronically signed by Luis Eduardo Ochoa Conversion Circuit Breaker Supervisor Cerner at 08/29/2022 6:45 PM CDT documented in this encounter Plan of Treatment Not on file documented as of this encounter Visit Diagnoses Not on filedocumented in this encounter
--- OUTSIDE RECORDS SUMMARY | 2024-11-20 08:09 | XMS_ITS | Encounter Summary ---
Author Organization [facility] Address [address] [place] [address] Care Team Providers Care Cut In Worker Name Role Phone Enedina Mcguire NP Primary Care Provider [phone] Source Comments This information has been disclosed [...] release of HIV test results or diagnoses. [id number] Health Encounter Details Date Type Department Care Team (Late st Contact Info) Description 10/22/2024 Telephone [facility] Psychiatry Transplant at [facility] [address] [facility] [address] [place] [address] Lizeth Warren PsyD [address] [facility] [address] [place] [address] Social History Tobacco Use Types Packs/Day Years Used Date Smoking Tobacco: Former Cigarettes Smokeless Tobacco: Current Alcohol Use Standard Drinks/Week Comments Yes 0 (1 standard drink = 0.6 oz pure alcohol) History of alcohol abuse, reports no use in 3 week- typically endorses use as 4 glasses of wine a days Utilities Answer Date Recorded In the past 12 months has [employer], gas, oil, or water [employer] threatened to shut off services in [...] appts. Went to voicemail. Left vm referencing [employer] message with availability times listed. Encouraged patient to response with preferred slot. documented in this encounter Plan of Treatment Upcoming Encounters Date Type Department Care Team (Late st Contact Info) Description 12/05/2024 8:01 AM EDT Hospital Encounter [facility] ENDOSCOPY [address] [place] [address] Chris Orosco MD [address] [place] [phone] 12/05/2024 8:01 AM EDT - 12/05/2024 8:31 AM EDT Surgery [facility] ENDOSCOPY [address] [place] [address] Chris Orosco MD [address] [place] [address] EGD Scheduled Procedures Name Priority Associated Diagnoses Date/Ti me EGD Cirrhosis of liver with ascites, unspecified hepatic cirrhosis type ([facility]) 12/05/2024 8:01 AM EDT documented as of this encounter Visit Diagnoses Not on filedocumented in this encounter Additional Health Concerns Infection Onset Date Last Indicated Resolved Time C. difficile 09/09/2024 09/09/2024 10/27/2024 8:30 AM EDT Assessment Noted Time PHQ-9 Depression Total Score: 17 05//2 025 11:00 AM EDT documented as of this encounter Care Teams Cut In Worker Relationship Specialty Start Date End Date Enedina Mcguire NP [address] [place] [address] PCP - General Internal Medicine 10/05/24 documented as of this encounter
--- OUTSIDE RECORDS SUMMARY | 2024-11-20 08:09 | XMS_ITS ---
Author Organization [facility] Address [address] [place] [address] Care Team Providers Care Tax Expert Name Role Phone Enedina Mcguire NP Primary Care Provider + [phone] Maureen Pantoja RN Unavailable Unavail able Transplant Episode Liver Recipient [facility] ([place], [place]) - [facility] Organ Received: Liver Transplanted on 10/26/2024 Marked as Active Follow-up on 10/26/2024 Liver CoordinatorMaureen Pantoja RN Phone: N/A Fax: N/A Email: N/A [place] Organ Diagnosis Organ Primary Contributory Liver Alcohol-Associated [...] Team Name Role Phone Fax Email Maureen Pantjoa RN Liver Coordinator N/A N/A N/A Chris Orosco MD Referring Physician [phone] N/A Maureen Pantoja, RN Txp Post Coordinator N/A N/A N/A NUBIA Barros Txp Design Maker N/A N/A N/A Harvey Domínguez III, MD Txp Surgeon [phone] N/A Mary Butler, ЮЛИЯ Txp Pre Coordinator N/A N/A N/A Events Post-Transplant Pre-Transplant Admitted: 10/25/2024 Referred: 08/13/2024 Transplanted: 10/26/2024 Evaluation began: 5 Discharged: 11/02/2024 Committee: 10/14/2024 Center waitlisted: 5 Appointments (10/21/2024 - 12/21/2024) When With Visit Type Description 11/04/2024 Txp Jose Hanna Established Patient Kidney transplant recipient (Primary Dx); Diarrhea of presumed infectious origin; Hypomagnesemia; Hypervolemia, unspecified hypervolemia type; Liver transplant recipient ([facility]); Other hypervolemia; Hyperparathyroidism ([facility]); Nausea and vomiting, unspecified vomiting type 11/04/2024 Txp Ebony Watkins Established Patient Li jemma transplant recipient ([facility]) (Primary Dx); Alcoholic cirrhosis of liver with ascites ([facility]); Kidney transplant recipient; Acute kidney injury superimposed on CKD ([facility]); CKD (chronic kidney disease) stage 4, GFR 15-29 ml/min ([facility]); Immunosuppressive management encounter following liver transplant ([facility]); Abdominal pain, unspecified abdominal location 11/11/2024 Txp Kady De La Rosa Established Patient Encounter for therapeutic drug monitoring (Primary Dx); Abdominal pain, unspecified abdominal location 11/11/2024 Txp Lorrie Mascorro Established Patient Kid haylee replaced by transplant (Primary Dx); Hypervolemia associated with renal insufficiency
[2024-11-20 08:15] LABS: Hematocrit 32.2 % (42.0-52.0); Hemoglobin 10.5 g/dL (14.1-18.0); Immature Granulocytes % 0.8 %; Mean Corpuscular HGB Conc 32.6 g/dL (31.8-35.4); Mean Corpuscular Hemoglobin 30.9 pg (27.0-31.2); Mean Corpuscular Volume 94.7 fl (80-94); Nucleated Red Blood Cells % 0 %; Platelet Count 151 K/mm3 (142-424); Red Blood Count 3.40 M/mm3 (4.60-6.20); Red Cell Distribution Width-SD 65.0 fL; White Blood Count 6.4 K/mm3 (4.8-10.8)
[2024-11-20 09:14] LABS: Albumin Level 4.2 g/dl (3.5-5.0); Chloride 100 mmol/L (98-107); Potassium 4.2 mmoL/L (3.5-5.1); Sodium 139 mmol/L (136-145)
[2024-11-20 09:16] LABS: Bilirubin,Unconjugated 0.1 mg/dL (0.0-1.1); Blood Urea Nitrogen 36 mg/dl (9-20); Creatinine,Serum 1.00 mg/dl (0.66-1.25); Estimated Glomerular Filt Rate 82 ml/min (>60); GFR (African American) 100 ML/MIN (>60)
[2024-11-20 09:17] LABS: Alanine Aminotransferase 60 U/L (12-78); Alkaline Phosphatase 285 U/L (38-126); Anion Gap 15.2 mEq/L (5-15); Aspartate Amino Transferase 25 U/L (17-59); Bilirubin,Direct 0.4 mg/dl (0.0-0.4); Bilirubin,Indirect 0.1 mg/dL (0.0-0.9); Bilirubin,Total 0.5 mg/dl (0.2-1.3); Calcium 9.9 mg/dl (8.4-10.2); Carbon Dioxide 28 mmol/L (22.0-30.0); Glucose 97 mg/dl (74-100); Phosphorous 6.2 mg/dl (2.5-4.5); Total Protein,Serum 6.4 g/dl (6.3-8.2)
[2024-11-23 12:17] LABS: Tacrolimus (FK506), Blood 11.5 ng/mL (5.0-20.0)
== END 2024-11-20 23:59 | disposition home or self-care (01) ==
LOC: LAB 07:52
PROVIDERS: PCP Nurse Practitioner Family; Visit Provider Nurse Practitioner Family
DX: K74.60 Unspecified cirrhosis of liver (principal); R18.8 Other ascites
CPT/HCPCS: 36415; 80069; 80076; 80197; 85025

== ENCOUNTER 2024-11-27 07:47 | Outpatient (CLI) | payer OTHER, SELFPAY ==
--- OUTSIDE RECORDS SUMMARY | 2024-09-29 11:00 | XMS_ITS | Encounter Summary ---
Author Organization [facility] Address [address] [place] [address] Care Team Providers Care Truck Loader And Unloader Name Role Phone Unavailable Primary Care Provider [...] release of HIV test results or diagnoses. [id number] Health Encounter Details Date Type Department Care Team (Late st Contact Info) Description 09/29/2024 11:00 AM EDT Office Visit [facility] Psychiatry Transplant at [facility] [address] [facility] [address] [place] [phone] Craig Warren PsyD [address] [facility] [address] [place] [address] PTSD (post-traumatic stress disorder) (Primary [...] Recorded In the past 12 months has [employer], gas, oil, or water company threatened to [...] any time in the past [address] [facility], were you homeless or living in a fpc (including now)? No 09/05/2024 Yearly Questionnaire Answer [...] The following assessment was informed by the [place] Integrated Psychosocial Assessment for Transplant (SIP AT) [...] to his health decline. He was raised Islam and denied current engagement in any community [...] elected kentrelle VIKAS and went directly to [facility] for care. Patient trusts his caregivers to [...] most recent in 2023. Given distance to [facility] (~ 1.25 - 1.5 hr) and transplant [...] well as with an individual counselor, at [facility]. Alcohol use triggers identified as [...] PCP). Was established with Pain Management at [facility] under VALENTINE Rodriguez May 2024. Note from [...] Description 12/05/2024 8:01 AM EDT Hospital Encounter [facility] ENDOSCOPY [address] [place] [address] Chris Orosco MD [address] [place] [phone] 12/05/2024 8:01 AM EDT - 12/05/2024 8:31 AM EDT Surgery [facility] ENDOSCOPY [address] [place] [address] Chris Orosco MD [address] [place] [phone] EGD Scheduled Procedures Name Priority Associated Diagnoses [...]
--- OUTSIDE RECORDS SUMMARY | 2024-09-29 14:20 | XMS_ITS | Encounter Summary ---
Author Organization Healthcare Address [address] [place] [address] Care Team Providers Care Sailmaker Name Role Phone Regina, Lj Nova APRN Unavailable [phone] Enedina Mcguire APRN Primary Care Provider + Reason for Referral * Consultation (Routine) - Authorized Specialty Diagnoses / Procedures Referred By Shane t Referred To Contact Diagnoses NADIYA (acute kidney injury) (CMS/HCC) Portal hypertension (CMS/HCC) Secondary esophageal varices with bleeding (CMS/HCC) Yovanny Curran MD [address] [address] Phone: tel: fax: Referral ID Status Reason Start Date Expiration Date V isits Requested Visits Authorized [id number] Authorized 09/29/2024 03/31/2026 1 1 Reason for Visit * Reason Comments Follow-up Pt did not taken vit al sign Encounter Details Date Type Department Care Team ([facility] Contact Info) Description 09/29/2024 2:20 PM EDT Office Visit Professional [employer] [place] Nephrology, Bone & Mineral Metabolism [address] [place] [address] Yovanny Bob MD [address] [place] [address] NADIYA (acute kidney injury) (CMS/HCC) [...] answer 07/14/2024 How often do you attend [facility] or adventist services? Patient unable to answer 07/14/2024 Do you belong to any clubs o r organizations such as episcopalian groups, unions, fraternal or athletic groups, or [...] Recorded Patient Health Questionnaire-2 Score 2 09/29/2024 [facility] of Occupat ional [facility] - Occupational Stress Questionnaire Answer Date [...] any time in the past 12 m [facility], were you homeless or living [...] drink first t deborah in the morning (EYE-SURGICAL PHYSICIAN ASSISTANT) to steady your nerves or to get rid of a hangover? 0 07/19/2024 CAGE Questionnaire Score 2 025 Utilities Answer Date Recorded In the past 12 months has th [employer], gas, oil, or water [employer] threatened to shut off services in your [...] Patient confirms they are physically located in [place]? Yes If the patient is not physically located in [place], the provider has confirmed with [facility] thatthe provider is authorized to provide services in patient's stated location? N/A Provider Location: [facility] facility Audio and video or audio only? Audio and video Total visit time: 20 minutes HISTORY OF PRESENT ILLNESS Julien Anderson was seen in our clinic previously with/for Follow-up. As you know, patient is a 39 y.o. male who presents to the clinic today as follow up of his NADIYA. Most recently discharged on 09/09 from [facility]. Cr at time of discharge was 2.4. Cr most recently at [facility] was 3.0. On bicarb repletion. C/O abdominal [...] impressions, importance of compliance with treatment, and intermediate designer nature of condition. Education provided was verbal [...] Description 12/01/2024 2:20 PM EDT Office Visit [facility] Nephrology, Bone & Mineral Metabolism [address], [address] [place] [address] Yovanny Curran MD [address] [place] [address] 01/08/2025 3:20 PM EDT Office Visit [facility] [address], [address] [place] [address] Vincent Braga MD [address] [place] [address] Scheduled Referrals Name Type Priority [...] documented as of this encounter Care Teams Sailmaker Relationship Specialty Start Date End Date Enedina Mcguire APRN [address] [place] [id number] PCP - General 12/04/22 Lj Tapia APRN [facility] [place], [place] [id number] Referring Physician Gastroenterology 07/18/22 documented as of this encounter
--- OUTSIDE RECORDS SUMMARY | 2024-10-05 23:12 | XMS_ITS | Encounter Summary ---
Author Organization [facility] Address [facility] [place] [address] Care Team Providers Care Mail List Librarian Name Role Phone Enedina Mcguire NP Primary Care Provider [phone] Source Comments This information has been disclosed [...] release of HIV test results or diagnoses. [id number] Reason for Referral * Surgical (Routine) - Pending Review Specialty Diagnoses / Procedures Referred By Shane hernadez Referred To Contact Gastroenterology Diagnoses Alcoholic cirrhosis of liver with ascites (CMS-HCC) Procedures Case request GI: EGGerri Min MD [address] [place] [address] Phone: tel: fax: Referral ID Status Reason Start Date Expiration Date V isits Requested Visits Authorized [id number] Pending Review 10/08/2024 04/06/2025 1 1 Reason for Visit * Auth/Cert (Routine) Specialty Diagnoses / Procedures Referred By Shane hernadez Referred To Contact General Internal Medicine Diagnoses [facility] [address] [place] [address] Phone: tel: Referral ID Status Reason Start Date Expiration Date Visits Re quested Visits Authorized [id number] 1 1 Encounter Details Date Type Department Care Team (Latest Contact Info) Description 10/05/2024 11:12 PM EDT - 10/17/2024 10:29 AM EDT Hospital Encounter [facility] [address] [place] [id number] Angie Blanchard MD [address] [place] [address] Fouzia Rene MD [address] [place] [address] Med/[place] [address] Chelsy Lerner MD [address] [place] [address] [place] [address] Alcoholic cirrhosis of liver with [...] Recorded In the past 12 months has [employer], gas, oil, or water [employer] threatened to shut off services in your [...] any time in the past 12 m [facility], were you homeless or living in [...] Home post discharge: Not Applicable Kandy BAE [facility] [phone] * William Blount MD - 10/17/2024 8:50 AM EDT [facility] Inpatient Discharge Summary Patient: Julien Gilbert Age: 39 y.o. CSN: [id number] Date of Admission: 10/05/2024 Date of Discharge: 10/17/2024 Attending Physician: Chelsy Lerner MD Primary Care Physician: Enedina Mcguire NP Diagnoses Present on Admission Past Medical History: Diagnosis Date Alcoholic cirrhosis of liver (CMS-HCC) Esophageal varices (CMS-HCC) Hepatorenal syndrome (CMS-HCC) Hypertension Other hyperlipidemia 07/26/2024 Renal cell carcinoma (CMS-HCC) Thrombocytopenia ([facility]) Thyroid disease Discharge Diagnoses Active Hospital Problems [...] Case IDs Date Procedure Surgeon Location Status [id number] 10/10/24 EGD Lino Soto MD ENDOSCOPY Comp [id number] 10/14/24 Left Heart Cath Irving Matta MD [...] at 10/08/2024 1:12 PM EDT US Duplex Qgn-Vrk-Bsrqpkx Comp Final Result IMPRESSION: ABDOMEN 1. Cirrhotic [...] 90 tablet Refills: 0 naloxone 4 mg/actuation [place] Commonly known as: NARCAN Apply 1 spray [...] Your Medications These medications were sent to [facility] [address] [place] [id number] Hours: Sunday - Sunday: 8:00AM - 6:00PM FLUoxetine 20 MG capsule lactulose 10 gram/15 mL solution loratadine 10 mg tablet methocarbamoL 500 MG tablet midodrine 10 MG tablet naloxone 4 mg/actuation [place] oxyCODONE 5 MG immediate release tablet Discharge [...] Order Questions: Select Supplement: Boost-1 kcal/ml supplement ([facility] only) As listed above, low sodium diet [...] AM EDT 10/17/2024 naloxone (NARCAN) 4 mg/actuation [place] Apply 1 spray in one nostril if [...] Hughes MD - 10/17/2024 10:23 AM EDT [facility] HEPATOLOGY PROGRESS NOTE Name: Julien Gilbert CSN: [id number] Consulted by: Chelsy Lerner MD Reason for [...] Yes Past Week naloxone (NARCAN) 4 mg/actuation [place] Apply 1 spray in one nostril if [...] nucleated cells, <2000 RBCs 10% Polynuclear, 90% [place] nuc. There were initial reports of gram [...] of chemical dependency treatment as outpatient. - [facility] with no obstructive coronary disease - Psych eval for PTSD With recommendation of sertraline - Given his renal dysfunction, will plan to list for [facility] when he qualifies on 10/22/2024. Labs next week - Plan for d/c today Bobby Sidhu MD Transplant Aboriginal Education Worker Coordinator Please see the body of the resident, [...] remains <30 until October 22. Waiting for [facility] today. ASSESSMENT NADIYA on CKD, last [...] Staff. Jeremiah Gamino PGY4 Nephrology. Pager no. [phone] Chief Complaint No chief complaint on file. [...] at 10/08/2024 1:12 PM EDT US Duplex Uaq-Icx-Xerydxe Comp Final Result IMPRESSION: ABDOMEN 1. Cirrhotic [...] no head imaging has been [facility]. -CT Head w/o contrast -Imaging showed [...] Order Questions: Select Supplement: Boost-1 kcal/ml supplement ([facility] only) Code Status: Full Code Signed: WILLIAM BLOUNT MD 10/16/2024, 2:16 PM Cosigned by Chelsy Lerner MD at 10/16/2024 5:38 PM EDT Associated attestation - Chelsy Lerner MD - 10/16/2024 5:38 PM EDT [facility] Medicine Attending Supervision Note Julien Gilbert [...] another specialty or practice, other licensed professional (PT/OT/WELDING SPECIALIST/RT), or a non-medical community professional: Hepatology, Interventional [...] due to positioning during LHC on 10/14. [place] the worst in CVR, but has improved [...] Kumar, RD - 10/16/2024 1:08 PM EDT [facility] Medical Nutrition Therapy Follow-Up Diet Order/Nutrition Support: Regular diet, Boost TID - Vanilla preference Pertinent Information: This is a 39 year old male history of ETOH cirrhosis d/b HE, ascites with SBP who is admitted for AMS. Precipitant of his HE likely SBP. Diagnostic paracentesis at OSH reportedly showed 61 nucleated cells, <2000 RBCs 10% Polynuclear, 90% [place] nuc. There were initial reports of gram [...] Based on CBW of 119.5 kg Kcals/day: 6867-7583 (18-21 kcals/kg) Protein g/day: 119-143 (1-1.2 g/kg) [...] Kumar RD, LD Clinical Dietitian Contact via Ala-Septic * Jerad Hughes MD - 10/16/2024 11:03 AM EDT [facility] HEPATOLOGY PROGRESS NOTE Name: Julien Gilbert CSN: [id number] Consulted by: Chelsy Lerner MD Reason for [...] nucleated cells, <2000 RBCs 10% Polynuclear, 90% [place] nuc. There were initial reports of gram [...] of chemical dependency treatment as outpatient. - [facility] with no obstructive coronary disease - Psych eval for PTSD With recommendation of sertraline - Given his renal dysfunction, will plan to list for [facility] when he qualifies on 10/22/2024. - Will follow Bobby Sidhu MD Transplant Aboriginal Education Worker Coordinator Please see the body of the resident, [...] remains <30 until October 22. Waiting for [facility] today. ASSESSMENT NADIYA on CKD, last [...] COMMENT on 10/08/2024 Iron%- Iron replete PLAN -[facility] yesterday- patient remains at risk of contrast related injury on top of exisiting NADIYA for 24-48 hrs after contrast load. -He is volume overloaded -patient needs to follow up closely with nephrology after discharge Thank you for allowing us to participate in this patient's care. Discussed with Consult Staff. Jeremiah Gamino PGY4 Nephrology. Pager no. [phone] Chief Complaint No chief complaint on file. [...] visitis Acute kidney injury superimposed on CKD ([facility]). NAEON. Pt's C yesterday without concern for [...] at 10/08/2024 1:12 PM EDT US Duplex Fnk-Ooe-Vmenlse Comp Final Result IMPRESSION: ABDOMEN 1. Cirrhotic [...] no head imaging has been performed at [facility]. -CT Head w/o contrast -Imaging showed [...] Order Questions: Select Supplement: Boost-1 kcal/ml supplement ([facility] only) Code Status: Full Code Signed: WILLIAM [...] another specialty or practice, other licensed professional (PT/OT/WELDING SPECIALIST/RT), or a non-medical community professional: Hepatology, Interventional [...] due to positioning during LHC on 10/14. [place] the worst in CVR, but has improved [...] Hughes MD - 10/15/2024 10:15 AM EDT [facility] HEPATOLOGY PROGRESS NOTE Name: Julien Gilbert CSN: [id number] Consulted by: Chelsy Lerner MD Reason for [...] hyperlipidemia 07/26/2024 Renal cell carcinoma (CMS-HCC) Thrombocytopenia ([facility]) Thyroid disease Past Surgical History: Procedure Laterality [...] nucleated cells, <2000 RBCs 10% Polynuclear, 90% [place] nuc. There were initial reports of gram [...] - Will follow Bobby Sidhu MD Transplant Aboriginal Education Worker Coordinator Please see the body of the resident, [...] Quan MD - 10/14/2024 2:34 PM EDT [facility] Department of Cardiovascular Health and [...] remains <30 until October 22. Waiting for [facility] today. ASSESSMENT NADIYA on CKD, last discharge creatinine 2.4 Baseline Creatinine 1.2-1.3, HRS- NADIYA as no response to holding lasix and albumin UA bland Urine lytes <10/< 15/ 50 Holding lasix give [facility] today Renal Function: Recent Labs 10/14/24 0253 [...] COMMENT on 10/08/2024 Iron%- Iron replete PLAN -[facility] today -pt is volume up slightly -standing weights daily -c.w sodium bicarb tablets -discssed with the patient anad family about risk of needing HD after [facility] Thank you for allowing us to participate in this patient's care. Discussed with Consult Staff. Jeremiah Gamino PGY4 Nephrology. Pager no. [phone] Chief Complaint No chief complaint on file. [...] at 10/08/2024 1:12 PM EDT US Duplex Iss-Qke-Mukisrz Comp Final Result IMPRESSION: ABDOMEN 1. Cirrhotic [...] not tolerate Stress ECHO on 10/09 - [facility] today -Per GI recs, started on [...] no head imaging has been performed at [facility]. -CT Head w/o contrast -Imaging showed [...] never required dialysis. Patient is going for [facility] today and will receive contrast, okay [...] Order Questions: Select Supplement: Boost-1 kcal/ml supplement ([facility] only) Code Status: Full Code Signed: WILLIAM BLOUNT MD 10/14/2024, 10:26 AM Cosigned by Chelsy Lerner MD at 10/14/2024 11:53 AM EDT Associated attestation - Chelsy Lerner MD - 10/14/2024 11:53 AM EDT [facility] Medicine Attending Supervision Note Julien Gilbert [...] another specialty or practice, other licensed professional (PT/OT/WELDING SPECIALIST/RT), or a non-medical community professional: Hepatology, Interventional [...] Hughes MD - 10/14/2024 7:42 AM EDT [facility] HEPATOLOGY PROGRESS NOTE Name: Julien Gilbert CSN: [id number] Consulted by: Chelsy Lerner MD Reason for [...] nucleated cells, <2000 RBCs 10% Polynuclear, 90% [place] nuc. There were initial reports of gram [...] eval ongoing. Transplant work up ongoing - [facility] today - Transplant nephrology following for [...] - Will follow Bobby Sidhu MD Transplant Aboriginal Education Worker Coordinator Please see the body of the resident, [...] Staff. Jeremiah Gamino PGY4 Nephrology. Pager no. [phone] Chief Complaint No chief complaint on file. [...] Hughes MD - 10/13/2024 12:33 PM EDT [facility] HEPATOLOGY PROGRESS NOTE Name: Julien Gilbert CSN: [id number] Consulted by: Fouzia Rene MD Reason for [...] Alcoholic hepatitis Esophageal varices (CMS-HCC) Hepatorenal syndrome ([facility]-H[facility]) Hypertension Other hyperlipidemia 07/26/2024 Renal cell carcinoma [...] nucleated cells, <2000 RBCs 10% Polynuclear, 90% [place] nuc. There were initial reports of gram [...] eval ongoing. Transplant work up ongoing - [facility] today - Transplant nephrology following for [...] - Will follow Bobby Sidhu MD Transplant Aboriginal Education Worker Coordinator Please see the body of the resident, [...] any interval liver pathology. * Rebekah Linares, [facility] - 10/13/2024 12:30 PM EDT Start [...] no psychomotor abnormalities Cognition: short term and custodial memory intact Attitude: cooperative Affect: full range [...] Fabian, RD - 10/13/2024 10:49 AM EDT [facility] Medical Nutrition Therapy Reason(s) for [...] Order Questions: Select Supplement: Boost-1 kcal/ml supplement ([facility] only) Pertinent Information: Julien Gilbert is a [...] kg) Body mass index is 32.07 kg/m??. [place] Body Weight: 202 lbs (91.8 kg) +/- 10% Weight History: Wt Readings from Last 10 Encounters: 10/10/24 (!) 263 lb 8 oz (119.5 kg) 09/05/24 (!) 262 lb 9.6 oz (119.1 kg) 09/02/24 (!) 258 lb (117 kg) 08/17/24 (!) 242 lb 11.2 oz (110.1 kg) 07/28/24 (!) 245 lb (111.1 kg) Estimated Nutrition Needs: Based on CBW of 119.5 kg Kcals/day: 5705-5355 (18-21 kcals/kg) Protein g/day: 119-143 (1-1-2 g/kg) [...] Dietitian - Solid Organ Transplant Contact via Penxy Chat * Eileen Schroeder MD, PhD - [...] at 10/08/2024 1:12 PM EDT US Duplex Yvj-Xge-Bnmfjzt Comp Final Result IMPRESSION: ABDOMEN 1. Cirrhotic [...] no head imaging has been performed at [facility]. -CT Head w/o contrast -Imaging showed [...] Order Questions: Select Supplement: Boost-1 kcal/ml supplement ([facility] only) Code Status: Full Code Signed: EILEEN [...] I reviewed the documentation by the medical assembler steam and gas turbine and agree as documented. Any additions or clarifications are listed below. Daily plan was discussed with patient at bedside and questions addressed. Patient ID: Julien Gilbert is a 39 y.o. male currently admitted for Acute kidney injury superimposed on CKD ([facility]) Supplemental History/ ROS: No acute events overnight [...] for Acute kidney injury superimposed on CKD ([facility]) Active Problems: NADIYA (acute kidney injury) on CKD ([facility]): Hepatorenal syndrome. Appreciate nephrology consult. S/p albumin X3. Baseline creatinine presumed to be around 2.5. Creatinine now seems to be fluctuating between 2.5-2.9 which may be his new baseline. We will continue to monitor. Spontaneous Bacterial Peritonitis ([facility]): Received 4 days of vancomycin, Ceftriaxone x 5d. Recent therapeutic paracentesis shows resolution. Continue Cipro prophylaxis Anemia: Multiple contributors. S/p 1 unit PRBC. Hemoglobin responded appropriately and remained stable. Will continue to monitor. Metabolic encephalopathy: Resolved. Likely related to combination of hepatic, metabolic, and possibly infectious insults. - Continue home lactulose and rifaximin Decompensated cirrhosis ([facility]HCC): Appreciate hepatology consult. He has started his [...] was non-diagnostic due to hypotension. Plan for [facility] today, but now moved to tomorrow. [...] when medically ready. Consider d/c home after [facility] tomorrow. FOUZIA RENE MD Attending Physician Department of Internal Medicine 10/13/2024 Medical Decision Making: // LEVEL 2 MOD One chronic illness with exacerbation, progression, or side effects of treatment Discussed with physician/SAWYER from another specialty or practice, other licensed professional (PT/OT/WELDING SPECIALIST/RT), or a non-medical community professional: Nephrology, Hepatology [...] at 10/08/2024 1:12 PM EDT US Duplex Uhu-Ztx-Dlqpdsw Comp Final Result IMPRESSION: ABDOMEN 1. Cirrhotic [...] no head imaging has been performed at [facility]. -CT Head w/o contrast -Imaging showed [...] Order Questions: Select Supplement: Boost-1 kcal/ml supplement ([facility] only) Code Status: Full Code Signed: CHARI [...] I reviewed the documentation by the medical assembler steam and gas turbine and agree as documented. Any additions or clarifications are listed below. Daily plan was discussed with patient at bedside and questions addressed. Patient ID: Julien Gilbert is a 39 y.o. male currently admitted for Acute kidney injury superimposed on CKD ([facility]) Supplemental History/ ROS: No acute events overnight [...] was non-diagnostic due to hypotension. Plan for [facility] tomorrow. - EGD completed. - Imaging [...] another specialty or practice, other licensed professional (PT/OT/WELDING SPECIALIST/RT), or a non-medical community professional: Nephrology, Hepatology [...] tid. cardiac workup pre txp. pLan for [facility] Sunday Liver transplant workup per GI/ [...] concern for hepatorenal syndrome.` Patient came from [facility], paracentesis was performed yesterday on [...] 706.9 (H) 10/08/2024 No results found for: [id number] , FOLATE Lab Results Component Value Date [...] CRUR No results found for: MICROALBUR , [id number] In addition to the above an extensive [...] 4.6 10/12/2024 Lab Results Component Value Date NJTV65W 7.1 (L) 10/08/2024 PLAN Monitor renal panel [...] AM Colten Huertas MD, KISHOR LIN FNKF tomb maker helper Div. of Nephrology [facility] E-mail: [email or web address] This note was completely edited, written [...] Gilbert Date of Admit: 10/05/2024 Referring physician: oFuzia Rene MD Interval hx No issues. Pending [facility]. Assessment: Renal Function: Cr: 2.77 Bun: [...] concern for hepatorenal syndrome.` Patient came from [facility], paracentesis was performed yesterday on [...] 706.9 (H) 10/08/2024 No results found for: WGLOAKOH51 , FOLATE Lab Results Component Value Date [...] CRUR No results found for: MICROALBUR , [id number] In addition to the above an extensive [...] 3.5 10/11/2024 Lab Results Component Value Date PMBJ25C 7.1 (L) 10/08/2024 PLAN Monitor renal panel [...] AM Colten Huertas MD, KISHOR LIN, FNDeclanF tomb maker helper Div. of Nephrology [facility] E-mail: [email or web address] This note was completely edited, written [...] is Acute kidney injury superimposed on CKD ([facility]). NAEON Pt felt much better today. A&O [...] at 10/08/2024 1:12 PM EDT US Duplex Mtj-Yck-Lrhwhaa Comp Final Result IMPRESSION: ABDOMEN 1. Cirrhotic [...] from outside facility. Will engage with them daily([phone]. Ask to speak to a tech) about [...] no head imaging has been performed at [facility]. -CT Head w/o contrast -Imaging showed [...] Order Questions: Select Supplement: Boost-1 kcal/ml supplement ([facility] only) Code Status: Full Code Signed: CHARI [...] I reviewed the documentation by the medical assembler steam and gas turbine and agree as documented. Any additions or clarifications are listed below. Daily plan was discussed with patient at bedside and questions addressed. Patient ID: Julien Gilbert is a 39 y.o. male currently admitted for Acute kidney injury superimposed on CKD ([facility]) Supplemental History/ ROS: No acute events overnight [...] reflux disease) Anemia SBP (spontaneous bacterial peritonitis) ([facility]) Neck pain with history of cervical spinal [...] another specialty or practice, other licensed professional (PT/OT/WELDING SPECIALIST/RT), or a non-medical community professional: Nephrology, Hepatology, [...] Strictly monitor urine output No Indication for MACHINIST APPRENTICE WOOD 3. Not a candidate for terlipressin per [...] Ignacio Queen MD Renal Fellow Pager # [phone] Chief Complaint No chief complaint on file. [...] concern for hepatorenal syndrome.` Patient came from [facility], paracentesis was performed yesterday on [...] PHOS -- < > 3.5 3.4 3.3 WEDD44O 7.1* -- -- -- -- < > = values in this interval not displayed. Lab Results Component Value Date IRON 81 10/08/2024 TIBC SEE COMMENT 10/08/2024 FERRITIN 706.9 (H) 10/08/2024 No results found for: [id number] , FOLATE Lab Results Component Value Date [...] CRUR No results found for: MICROALBUR , [id number] In addition to the above an extensive [...] 3.3 10/10/2024 Lab Results Component Value Date LMCV88A 7.1 (L) 10/08/2024 PLAN Continue IV albumin [...] AM Colten Huertas MD, KISHOR LIN, CATHYF tomb maker helper Div. of Nephrology [facility] E-mail: [email or web address] This note was completely edited, written [...] to follow pt while pt is at [facility]. * Jodi Ortiz PharmD - 10/10/2024 10:27 AM EDT Clinical Pharmacy Service: Vancomycin Consult Progress Note Patient has been transitioned off of vancomycin therapy per team notes and orders. Pharmacy will sign-off at this time, please do not hesitate to consult again as needs arise. Thank you for involving pharmacy in the care of this patient. Jodi Ortiz PharmD Clinical French Teacher, Internal Medicine Preferred contact: [facility] Pager: [phone] October 10, 2024 10:27 AM Laboratory Data [...] 10/07/2024 10:50 PM Giardia Cryptosporidium Antigens Final [id number] 10/07/2024 10:50 PM Ova and Parasite Comprehensive w/ Giardia/Crypto Final [id number] Feces 10/06/2024 1:04 AM #2 Blood culture-Peripheral site 2 Preliminary [id number] Peripheral 10/06/2024 1:04 AM #1 Blood culture-Peripheral site 1 Preliminary [id number] Peripheral Pharmacokinetics Lab Results (Last 7 days) Today 0523 Yesterday 0459 10/08 0536 Vanc Rdm 16.4 11.0 16.0 * Gerri Peterson MD - 10/10/2024 10:09 AM EDT [facility] HEPAT[facility]Y PROGRESS NOTE Name: Julien Gilbert CSN: [id number] Consulted by: Fouzia Rene MD Reason for [...] nucleated cells, <2000 RBCs 10% Polynuclear, 90% [place] nuc. Per OSH reports, ascitic fluid cultures [...] from the original note were not included. [facility] Clinical Pharmacy Service: Vancomycin Monitoring Consult Julien [...] in sodium chloride 0.9 % 250 mL Mips7Qoc (Completed) 1,500 mg Once 10/09/2024 10/09/2024 Admin Instructions: Contact pharmacy if there is a question/concern of whether vancomycin should begiven based on serum drug levels. Use Wbsc7Jnw Adapter - Mix Thoroughly Before Administration Route: Intravenous vancomycin (VANCOCIN) 1,500 mg in sodium chloride 0.9 % 250 mL Trbr5Keg 1,500 mg Once 10/10/2024 10/11/2024 Admin Instructions: Contact pharmacy if there is a question/concern of whether vancomycin should begiven based on serum drug levels. Use Vbux7Tiu Adapter - Mix Thoroughly Before Administration Route: [...] in sodium chloride 0.9 % 250 mL Jhcm8Dsn 1,500 mg 166.7 mL/hr 10/08/24 1259 New Bag vancomycin (VANCOCIN) 1,000 mg in sodium chloride 0.9 % 250 mL Opaz6Cav 1,000 mg 250 mL/hr --Objective Data-- Vitals: [...] 53 53 54 Creatinine 2.85 2.89 3.04 [place] body weight: 86.8 kg (191 lb 5.7 oz) Adjusted ideal body weight: 99.9 kg (220 lb 3.5 oz) Estimated CrCl: ~35-45 mL/min --Cultures-- Microbiology Results Date and Time Order Name Sensitivity Status Organisms Specimen ID Source 10/07/2024 10:50 PM Giardia Cryptosporidium Antigens Final [id number] 10/07/2024 10:50 PM Ova and Parasite Comprehensive w/ Giardia/Crypto Final [id number] Feces 10/06/2024 1:04 AM #2 Blood culture-Peripheral site 2 Preliminary [id number] Peripheral 10/06/2024 1:04 AM #1 Blood culture-Peripheral site 1 Preliminary [id number] Peripheral --Vancomycin Concentrations-- Lab Results (Last 7 [...] for the consult. Jodi Ortiz, PharmD Clinical French Teacher, Internal Medicine Preferred contact: [employer] Hadvbsl-Bn-Ieea Pager: [phone] October 10, 2024 9:13 AM * Eileen Schroeder MD, PhD - 10/10/2024 8:17 AM EDT Department of Internal Medicine Daily Progress Note Chief Complaint / Reason for Follow-Up Julien Gilbert is a 39 y.o. male on hospital day 5. The principal reason for today's follow up visit is Acute kidney injury superimposed on CKD ([facility]). KARENEMERLINE Pt was very conversational today. A&O [...] at 10/08/2024 1:12 PM EDT US Duplex Zwz-Osl-Vufpbse Comp Final Result IMPRESSION: ABDOMEN 1. Cirrhotic [...] from outside facility. Will engage with them daily([phone]. Ask to speak to a tech) about [...] no head imaging has [facility]. -CT Head w/o contrast -Imaging showed [...] Order Questions: Select Supplement: Boost-1 kcal/ml supplement ([facility] only) Code Status: Full Code Signed: EILEEN [...] I reviewed the documentation by the medical assembler steam and gas turbine and agree as documented. Any additions or clarifications are listed below. Daily plan was discussed with patient at bedside and questions addressed. Patient ID: Julien Gilbert is a 39 y.o. male currently admitted for Acute kidney injury superimposed on CKD ([facility]) Supplemental History/ ROS: No acute events overnight [...] another specialty or practice, other licensed professional (PT/OT/WELDING SPECIALIST/RT), or a non-medical community professional: Nephrology, Hepatology, [...] Strictly monitor urine output No Indication for MACHINIST APPRENTICE WOOD Not a candidate for terlipressin per liver due to HE, liver and kidney failure, on midodrine tid. Considering para today, cardiac workup pre txp Liver transplant workup per GI/ Primary team, considering for SLK, seen by renal transplant team Thank you for allowing us to participate in this patient's care. Discussed with Consult Staff. Ignacio Queen MD Renal Fellow Pager # [phone] Chief Complaint No chief complaint on file. [...] concern for hepatorenal syndrome.` Patient came from [facility], paracentesis was performed yesterday on [...] 9.0 9.3 PHOS -- 3.5 3.5 3.4 AGHM42E 7.1* -- -- -- Lab Results Component Value Date IRON 81 10/08/2024 TIBC SEE COMMENT 10/08/2024 FERRITIN 706.9 (H) 10/08/2024 No results found for: SCBQZZKO95 , FOLATE Lab Results Component Value Date [...] CRUR No results found for: MICROALBUR , [id number] In addition to the above an extensive [...] 3.4 10/09/2024 Lab Results Component Value Date JLNF41E 7.1 (L) 10/08/2024 PLAN Continue IV albumin [...] PM Colten Huertas MD, KISHOR LIN FNKF tomb maker helper Div. of Nephrology [facility] E-mail: [email or web address] This note was completely edited, written [...] Peterson MD - 10/09/2024 1:07 PM EDT [facility] HEPATOLOGY PROGRESS NOTE Name: Julien Gilbert CSN: [id number] Consulted by: Fouzia Rene MD Reason for [...] nucleated cells, <2000 RBCs 10% Polynuclear, 90% [place] nuc. Fluid cultures reportedly grew gram + [...] from the original note were not included. [facility] Clinical Pharmacy Service: Vancomycin Monitoring Consult Julien [...] in sodium chloride 0.9 % 250 mL Wzqf7Roy (Completed) 1,000 mg Once 10/08/2024 10/08/2024 Admin Instructions: Contact pharmacy if there is a question/concern of whether vancomycin should begiven based on serum drug levels. Use Vmqy8Bvy Adapter - Mix Thoroughly Before Administration Route: Intravenous vancomycin (VANCOCIN) 1,500 mg in sodium chloride 0.9 % 250 mL Ozid0Wyo 1,500 mg Once 10/09/2024 10/10/2024 Admin Instructions: Contact pharmacy if there is a question/concern of whether vancomycin should begiven based on serum drug levels. Use Pigc3Njk Adapter - Mix Thoroughly Before Administration Route: [...] in sodium chloride 0.9 % 250 mL Jdtr5Tyl 1,000 mg 250 mL/hr 10/06/24 1413 New [...] 10/07/2024 10:50 PM Giardia Cryptosporidium Antigens Final [id number] 10/07/2024 10:50 PM Ova and Parasite Comprehensive w/ Giardia/Crypto Final [id number] Feces 10/06/2024 1:04 AM #2 Blood culture-Peripheral site 2 Preliminary [id number] Peripheral 10/06/2024 1:04 AM #1 Blood culture-Peripheral site 1 Preliminary [id number] Peripheral --Vancomycin Concentrations-- Lab Results (Last 7 [...] for the consult. Jodi Ortiz PharmD Clinical French Teacher, Internal Medicine Preferred contact: [employer] [facility] Avjpzvf-Ei-Nxxp Pager: [phone] October 09, 2024 8:29 AM * Eileen [...] at 10/08/2024 1:12 PM EDT US Duplex Rro-Gfe-Dugdcsk Comp Final Result IMPRESSION: ABDOMEN 1. Cirrhotic [...] from outside facility. Will engage with them daily([phone]. Ask to speak to a tech) about [...] no head imaging has been performed at [facility]. -CT Head w/o contrast -Imaging showed [...] Order Questions: Select Supplement: Boost-1 kcal/ml supplement ([facility] only) Code Status: Full Code Signed: EILEEN [...] I reviewed the documentation by the medical assembler steam and gas turbine and agree as documented. Any additions or clarifications are listed below. Daily plan was discussed with patient at bedside and questions addressed. Patient ID: Julien Gilbert is a 39 y.o. male currently admitted for Acute kidney injury superimposed on CKD ([facility]) Supplemental History/ ROS: No acute events overnight [...] for Acute kidney injury superimposed on CKD ([facility]) Active Problems: Anemia: S/p 1 unit PRBC from yesterday. Hemoglobin responded appropriately and remained stable. Will continue to monitor. Metabolic encephalopathy: Mostly resolved. Likely related to combination of hepatic, metabolic, andpossibly infectious insults. - Continue home lactulose and rifaximin Spontaneous Bacterial Peritonitis ([facility]): Cultures from OSH are growing gram- positive organisms.We continue to await speciation. He remains afebrile and vital signs have been stable. - Continue vancomycin and ceftriaxone for now. - Will follow-up on speciation and sensitivities. Decompensated cirrhosis ([facility]): Appreciate hepatology consult. He has started his [...] another specialty or practice, other licensed professional (PT/OT/WELDING SPECIALIST/RT), or a non-medical community professional: Nephrology, Hepatology Labs reviewed (1 pt each): CBC, CMP, INR & other daily labs Review of notes from a different specialty or different practice: Nephrology, Anesthesiology hepatology, * Gerri Peterson MD - 10/08/2024 1:40 PM EDT [facility] HEPATOLOGY PROGRESS NOTE Name: Julien Gilbert CSN: [id number] Consulted by: Fouzia Rene MD Reason for [...] nucleated cells, <2000 RBCs 10% Polynuclear, 90% [place] nuc. Fluid cultures reportedly grew gram + [...] disease (ESRD) patient in a hospital based, [facility]-hospital based, or home setting. -At the [...] I have discussed this plan with the technology coordinator and the liver transplant team. Cosigned [...] from the original note were not included. [facility] Clinical Pharmacy Service: Vancomycin Monitoring Consult Julien [...] in sodium chloride 0.9 % 250 mL Xjkz9Oki 1,000 mg Once 10/08/2024 10/09/2024 Admin Instructions: Contact pharmacy if there is a question/concern of whether vancomycin should begiven based on serum drug levels. Use Vtho8Qeg Adapter - Mix Thoroughly Before Administration Route: [...] 10/07/2024 10:50 PM Giardia Cryptosporidium Antigens Final [id number] 10/07/2024 10:50 PM Ova and Parasite Comprehensive w/ Giardia/Crypto In process [id number] Feces 10/06/2024 1:04 AM #2 Blood culture-Peripheral site 2 Preliminary [id number] Peripheral 10/06/2024 1:04 AM #1 Blood culture-Peripheral site 1 Preliminary [id number] Peripheral --Vancomycin Concentrations-- Lab Results (Last 7 [...] for the consult. Jodi Ortiz PharmD Clinical French Teacher, Internal Medicine Preferred contact: [employer] [facility] Oueudle-Xo-Vjqw Pager: [phone] October 08, 2024 9:13 AM * Eileen [...] FREET4 0.74 09/03/2024 Diagnostic Studies US Duplex Bnj-Utd-Vwdrgzt Comp Final Result IMPRESSION: ABDOMEN 1. Cirrhotic [...] no head imaging has been performed at [facility]. -CT Head w/o contrast -Imaging showed [...] Order Questions: Select Supplement: Boost-1 kcal/ml supplement ([facility] only) Code Status: Full Code Signed: EILEEN [...] I reviewed the documentation by the medical assembler steam and gas turbine and agree as documented. Any additions or [...] home lactulose and rifaximin Spontaneous Bacterial Peritonitis ([facility]): Cultures from OSH are growing gram- positive organisms.We continue to await speciation. He remains afebrile and vital signs have been stable. - Continue vancomycin and ceftriaxone for now. - Will follow-up on speciation and sensitivities. Decompensated cirrhosis ([facility]): Appreciate hepatology consult. He has started [...] tomorrow NADIYA (acute kidney injury) on CKD ([facility]): Appreciate nephrology consult. Likely has hepatorenal syndrome. 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 Discussed with Consult Staff. Ignacio Queen MD Renal Fellow Pager # [phone] Chief Complaint No chief complaint on file. [...] concern for hepatorenal syndrome.` Patient came from [facility], paracentesis was performed yesterday on 10/05? Fluid pending for SBP analysis Histories he has a past medical history of Alcoholic cirrhosis of liver (CMS-HCC), Alcoholic hepatitis, Esophageal varices ([facility]), Hepatorenal syndrome ([facility]), Hypertension, Other hyperlipidemia (07/26/2024), Renal cell [...] TIBC , FERRITIN No results found for: [id number] , FOLATE Lab Results Component Value Date [...] <15 No results found for: MICROALBUR , [id number] In addition to the above an extensive [...] 4.0 10/08/2024 Lab Results Component Value Date FOQN26L 7.1 (L) 10/08/2024 PLAN Continue IV albumin [...] AM Colten Huertas MD, KISHOR LIN FNKF tomb maker helper Div. of Nephrology [facility] E-mail: [email or web address] This note was completely edited, written [...] from the original note were not included. [facility] Clinical Pharmacy Service: Vancomycin Monitoring Consult Julien [...] AM #2 Blood culture-Peripheral site 2 Preliminary [id number] Peripheral 10/06/2024 1:04 AM #1 Blood culture-Peripheral site 1 Preliminary [id number] Peripheral --Vancomycin Concentrations-- Lab Results (Last 7 [...] for the consult. Jodi Ortiz PharmD Clinical French Teacher, Internal Medicine Preferred contact: [employer] [facility] Nvgghna-Vv-Nuvy Pager: [phone] October 07, 2024 5:01 PM * Yamile Paige, PT - 10/07/2024 11:45 AM EDT Physical Therapy Initial Assessment and Discharge Name: Julien Gilbert : 1985 Attending Physician: Fouzia Rene MD Admission Diagnosis: AMS Date: 10/07/2024 [facility] Pertinent hospital course: Yes Hospital Course [...] Peterson MD - 10/07/2024 11:33 AM EDT [facility] HEPATOLOGY PROGRESS NOTE Name: Julien Gilbert CSN: [id number] Consulted by: Fouzia Rene MD Reason for [...] nucleated cells, <2000 RBCs 10% Polynuclear, 90% [place] nuc. Fluid cultures reportedly grewgram + rods. [...] liver selection meeting and clearance by social and political studies professor. 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 Discussed with Consult Staff. Ignacio Queen MD Renal Fellow Pager # [phone] Chief Complaint No chief complaint on file. [...] concern for hepatorenal syndrome.` Patient came from [facility], paracentesis was performed yesterday on [...] TIBC , FERRITIN No results found for: [id number] , FOLATE Lab Results Component Value Date [...] <15 No results found for: MICROALBUR , QSDN85VHQ In addition to the above an extensive [...] PHOS 4.2 10/07/2024 No results found for: SVVO93E PLAN Continue IV albumin Monitor renal panel [...] AM Colten Huertas MD, KISHOR LIN, FNDeclanF tomb maker helper Div. of Nephrology [facility] E-mail: [email or web address] * Carmen Bernal OT - 10/07/2024 [...] at 10/06/2024 2:33 AM EDT US Duplex Aio-Cqw-Nbonrfw Comp (Results Pending) US Abdomen Complete (Results [...] no head imaging has been performed at [facility]. -CT Head w/o contrast -Imaging showed [...] Order Questions: Select Supplement: Boost-1 kcal/ml supplement ([facility] only) Code Status: Full Code Signed: EILEEN [...] I reviewed the documentation by the medical assembler steam and gas turbine and agree as documented. Any additions or [...] and mental status is improving. Decompensated cirrhosis ([facility]): Appreciate hepatology consult. He has started his transplant evaluation as an outpatient. We will follow-up with hepatology to discuss any inpatient testing that may need to be needed. - MELD labs daily - Continue home regimen with ursodiol, rifaximin and lactulose NADIYA (acute kidney injury) ([facility]): Appreciate nephrology consult. Likely has hepatorenal syndrome. [...] needed for pain. Continue to monitor. Thrombocytopenia ([facility]) Renal mass, left CKD (chronic kidney disease) stage 4, GFR 15-29 ml/min ([facility]) Metabolic acidosis with normal anion gap [...] another specialty or practice, other licensed professional (PT/OT/WELDING SPECIALIST/RT), or a non-medical community professional: Nephrology, Hepatology Labs reviewed (1 pt each): CMP, CBC Test results reviewed (1 pt each): CXR, Head CT Review of notes from a different specialty or different practice: Nephrology, hepatology Use of parenteral controlled substances * Kiet Gardiner, PharmD - 10/06/2024 1:07 PM EDT Images from the original note were not included. [facility] Clinical Pharmacy Service: Vancomycin Monitoring Consult Julien [...] AM #2 Blood culture-Peripheral site 2 Preliminary [id number] Peripheral 10/06/2024 1:04 AM #1 Blood culture-Peripheral site 1 Preliminary [id number] Peripheral --Vancomycin Concentrations-- Lab Results (Last 7 [...] US Retroperitoneal complete (Results Pending) US Duplex Qep-Syl-Tezargq Comp (Results Pending) CT Head WO contrast [...] PM EDT Hospital Medicine Attending Supervision Note [facility] // [facility] Julien Gilbert was seen 10/06/24 on [...] Lerner MD - 10/05/2024 2:42 PM EDT [facility] Department of Medicine TRANSFER CALL NOTE Location [facility] ED History of Present Illness Julien Gilbert [...] nearest ED, with plan to transfer to [facility] if needing admission. In the ED, pt [...] Studies: Na 129 K 4.2 Cl 101 Rzwvzm91 BUN 62 (up from baseline) Cr 3.6 [...] Quan MD - 10/14/2024 1:10 PM EDT [facility] PRE[facility] ASSESSMENT, HISTORY & PHYSICAL Date: [...] Neuro: AOx3 AUC For Cath Indication(s) for Supervisor Commissary Production Visit: Visit Indicators: Suspected CAD 2. Chest Pain Symptom Assessment: Asymptomatic 3. Heart Failure: Yes Class II 4. [facility]SA Clinical Frailty Scale: Mildly Frail Sedation Plan: Moderate Sedation with Local Anesthesia Antibiotic prophylaxis is not indicated. Mani Quan Interventional Chief Innovation Officer Pager: [phone] [1] Patient Active Problem List Diagnosis Decompensated [...] Peterson MD - 10/10/2024 10:05 AM EDT [facility] PRE[facility] ASSESSMENT, HISTORY & PHYSICAL Date: [...] Low Risk (07/09/2024) Received from [facility] Overall Financial Resource Strain (CARDIA) Difficulty [...] No Physical Activity: Unknown (07/14/2024) Received from [facility] Exercise Vital Sign Days of Exercise per Week: Patient unable to answer Minutes of Exercise per Session: Not on file Stress: Patient Unable To Answer (07/14/2024) Received from [facility] [employer] - Occupational Stress Questionnaire Feeling of Stress : Patient unable to answer Social Connections: Patient Unable To Answer (07/14/2024) Received from [facility] Social Connection and Isolation Panel [NHANES] Frequency of Communication with Friends and Family: Patient unable to answer Frequency of Social Gatherings with Friends and Family: Patient unable to answer Attends Denominational Services: Patient unable to answer Active Member [...] values in this interval not displayed. Imaging: @CODVNYU63QH@ I have personally reviewed the imaging and have noted the following: Large recanalized umbilical vein Perihilar varices Replaced right hepatic artery Splenomegaly Spontaneous splenorenal shunt Large volume ascites, No portal vein thrombosis Assessment/Plan: A 39 y.o. male with ETOH decompensated by ascites, hepatic encephalopathy,bleeding esophageal Varices. Use and allocation of SCD, RESIDENTIAL NURSE, DCD and LDLT allografts discussed in detail. [...] from surgery (5%). I also explained the tank terminal gauger risks of transplantation and immunosuppression including viral infection and cancer both solid organand lymphoma. Kemar Sahni MD, Fellow, Multiorgan Abdominal Transplant Surgery. [facility]. 10/09/2024 3:16 PM [1] Allergies [...] Ortiz MD - 10/06/2024 12:00 AM EDT [facility] Internal Medicine - History and [...] for him to report. Pt arrived with Qoture folder of paperwork from OSH and a disk that was taken to Radiology overnight for imaging upload. [facility] performed a bedside paracentesis and sent studies for SBP analysis. [facility] to see if labs have resulted. Review of Systems 14 pt ROS conducted and negative aside from that mentioned in above HPI Past Medical and Social History Lives in [place], [place] at bedside Notes that the patient [...] OSH Repeat labs pending on admission to [facility] Assessment & Plan Julien Gilbert is a [...] AM EDT Hospital Medicine Attending Supervision Note [facility] // [facility] Julien Gilbert was seen 10/06/24 on [...] confusion and lethargy. HE was seen at [facility] ED were CT head unremarkable and RUQ with gallstones, abdominal ascites diagnostic para done and started on empiric CTX. Labs remarkable at OSH for K 4.2 Cl 101 Bsaohv29 BUN 62 (up from baseline) Cr 3.6 [...] another specialty or practice, other licensed professional (PT/OT/WELDING SPECIALIST/RT), or a non-medical community professional: ed team [...] Medicine Department of Internal Medicine Pager ID: [phone] 6:04 AM, 10/06/2024 documented in this encounter [...] CNP Vascular & Interventional Radiology 10/10/2024,1:55 PM [facility]: [phone]) * Lino Soto MD - 10/10/2024 12:06 PM EDT EGD Brief Op Note Julien Gilbert 10/05/2024 - 10/10/2024 Pre-op Diagnosis: Alcoholic cirrhosis of liver with ascites (CMS-HCC) [K70.31] Post-op Diagnosis: Portal gastropathy, Medium size, non-bleeding esophageal varices Procedure(s): EGD Surgeon(s): Lino Soto MD Anesthesia: MAC (Monitor Anesthesia Care) Staff: Fellow: Gerri Peterson MD Endoscopy Nurse: Kandice Castaneda RN Landfill Attendant: Diana Kemp Estimated Blood Loss: Minimal Specimens: Drains: There were no complications unless listed below. LINO SOTO MD Date: 10/10/2024 Time: 12:18 PM * Lino Soto MD - 10/10/2024 11:48 AM EDT [id number] Procedure Date: 10/10/2024 11:48 AM Patient Name: Julien Gilbert Date of : 1985 Admit Type: Inpatient Age: 39 Gender: Male Note Status: Finalized Attending MD: Lino Soto MD, [id number] Procedure: Upper GI endoscopy Indications: Gastroesopahgeal variceal [...] verified by the physician, the nurse, the skin pass operator and the microbiological laboratory technician in the pre-procedure area in the [...] to hypotension Procedure Code(s): --- Professional --- 09097, GC, Esophagogastroduodenoscopy, flexible, transoral; diagnostic, including collection of specimen(s) by brushing or washing, when performed (separate procedure) Diagnosis Code(s): --- Professional --- I85.00, Esophageal 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 All rights reserved. 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 Describes significant anxiety that occasionally limits his ability to drive, and stated he has to lime puller occasionally to collect himself, thought denied [...] need for sleep. Has not been on [employer] for mental health since stopping the cymbalta. [...] mother is and his father resides in [facility]. Patient earned a graduate degree and never served in the . 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 He was raised Anglican and denied current engagement in any community [...] or other abnormalities Cognition/Memory: short term and tank terminal gauger memory intact. Attention and concentration: is not [...] from the original note were not included. [facility] General Cardiology Consult Note Referring [...] at baseline or with provocation, shows no hjnsz-vo-ixvi atrial level shunt. - Pulmonary arteries: Systolic [...] 10/13/24, please keep NPO on 10/12/24 at [place] Risks and benefits of new therapies added and new invasive and non-invasive procedures/diagnostic testing planned discussed with and understood by the patient/family who agree with the above plan. Plan discussed with the attending physician Dr. Blanco. Recommendations are preliminary until this note is co- signed by the attending. Follow up appointments with Cardiology can be scheduled by calling [phone]. Thank you for the opportunity to participate in this patient's care. Please call orpage with any questions. Leonor Garcia MD Chief Innovation Officer I have personally seen, examined, reviewed all [...] 0659 10/11/24 0700 - 10/12/24 0659 Shift [id number] 3512-7686 24 Hour Total 3093-9922 8654-1322 9810-1278 24 Hour Total INTAKE P.O. 3506 069 6526 P[address] 2494 772 1277 Boost (mL) - [facility] only 240 240 I.V.(mL/kg) 450(3.8) Volume (mL) [...] (See Comments) Became Manic * Bakari Wahl, [facility] - 10/10/2024 10:07 AM EDT [...] CNP Vascular & Interventional Radiology 10/10/2024,1:54 PM [facility]: [phone]) [1] Social History Tobacco Use Smoking Status [...] EDTAssociated Order(s): IP CONSULT TO INFECTIOUS DISEASES [facility] DEPARTMENT OF INFECTIOUS DISEASE INITIAL NOTE Referring Physician: Fouzia Rene MD Consult Attending: Daria Garcia Patient: Julien Gilbert CSN: [id number] Reason for Consult: CC: Abx management History [...] HE. He was born and raised in [facility] . No travel to [facility]. 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 [...] Low Risk (07/09/2024) Received from [facility] Overall Financial Resource Strain (CARDIA) Difficulty [...] No Physical Activity: Unknown (07/14/2024) Received from [facility] Exercise Vital Sign Days of Exercise per Week: Patient unable to answer Minutes of Exercise per Session: Not on file Stress: Patient Unable To Answer (07/14/2024) Received from [facility] Pakistani Bryson of Occupational Health - Occupational Stress Questionnaire Feeling of Stress : Patient unable to answer Social Connections: Patient Unable To Answer (07/14/2024) Received from [facility] Social Connection and Isolation Panel [NHANES] Frequency of Communication with Friends and Family: Patient unable to answer Frequency of Social Gatherings with Friends and Family: Patient unable to answer Attends Denominational Services: Patient unable to answer Active Member [...] day. Qty: 60 tablet, Refills: 0 Comments: [facility] [place] [phone] sodium bicarbonate 650 MG tablet Take 2 [...] Aphasia [R47.01] 10/06/2024 SBP (spontaneous bacterial peritonitis) ([facility]) [K65.2] 09/08/2024 Metabolic acidosis with normal anion gap and bicarbonate losses [E87.20] 09/03/2024 CKD (chronic kidney disease) stage 4, GFR 15-29 ml/min ([facility]) [N18.4] 09/03/2024 GERD (gastroesophageal reflux disease) [K21.9] 09/03/2024 Renal mass, left [N28.89] 08/18/2024 Thrombocytopenia ([facility]) [D69.6] Decompensated cirrhosis ([facility]) [K72.90, K74.60] 07/25/2024 NADIYA (acute kidney injury) ([facility]) [N17.9] 07/25/2024 Resolved Hospital Problems No [...] Signed: Daria Garcia MD 10/08/2024, 9:46 AM [phone] [1] Allergies Allergen Reactions Adhesive Itching and [...] Low Risk (07/09/2024) Received from [facility] Overall Financial Resource Strain (CARDIA) Difficulty [...] No Physical Activity: Unknown (07/14/2024) Received from [facility] Exercise Vital Sign Days of Exercise per Week: Patient unable to answer Minutes of Exercise per Session: Not on file Stress: Patient Unable To Answer (07/14/2024) Received from [facility] of Occupational Health - Occupational Stress Questionnaire Feeling of Stress : Patient unable to answer Social Connections: Patient Unable To Answer (07/14/2024) Received from [facility] Social Connection and Isolation Panel [NHANES] Frequency of Communication with Friends and Family: Patient unable to answer Frequency of Social Gatherings with Friends and Family: Patient unable to answer Attends Denominational Services: Patient unable to answer Active Member [...] is no recent study available for direct [id number] comparison. Left Ventricle The left ventricle is [...] pressures < 35 mmHgon resting echo from [facility] 07/15/24. No ischemic workup noted. ECG from [...] surgery with risk (OLT/OKT) Los Broussard MD, [facility] Department of Anesthesiology [1] Allergies Allergen Reactions Adhesive Itching and Rash Tegaderm adhesive on Ivs, pt states its tolerable Duloxetine Other (See Comments) Became Manic [2] Patient Active Problem List Diagnosis Decompensated cirrhosis ([facility]) NADIYA (acute kidney injury) ([facility]) Alcohol use disorder Metabolic encephalopathy Hypertension Other hyperlipidemia Thrombocytopenia (CMS-HCC) Renal mass, left Abdominal pain Hypokalemia CKD (chronic kidney disease) stage 4, GFR 15-29 ml/min ([facility]) Metabolic acidosis with normal anion gap and bicarbonate losses GERD (gastroesophageal reflux disease) Hypothyroidism Itching Anemia BRBPR (bright red blood per rectum) SBP (spontaneous bacterial peritonitis)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 EX[facility] * Transfuse Platelets Transfusion Rate: Per dept routine (10/14/2024 12:43 PM EDT) Eleazar Nguyễn MD NURSING TREATMENT ORDER PAL - BLOOD ADMIN Final Result Performing Organization Address [facility]/ZIP Co de Phone Number EXTER[facility] * Transfuse Platelets Transfusion Rate: Per dept routine, 1 Units (10/14/2024 12:43 PM EDT) Eleazar Nguyễn MD NURSING TREATMENT ORDER PAL - BLOOD ADMIN Final Result Performing Organization Address City/[facility]/ZIP Co de Phone Number EXTERNAL * Antibody Screen (10/14/2024 8:21 AM EDT) [facility] Signature Antibody Screen Negative 10/14/2024 9:11 AM EDT [facility] Blood 10/14/2024 8:21 AM EDT 10/14/2024 8:33 AM EDT Narrative [facility] - 10/14/2024 9:26 AM EDT Testing performed by [facility] Transfusion Service us Eleazar Nguyễn MD BLOOD BANK TEST ORDERAB LES Final Result Performing Organization Address City/[facility]/ZIP Co de Phone Number [facility] [address] * ABO/Rh (10/14/2024 8:21 AM EDT) ABO Grouping O 10/14/2024 8:55 AM EDT [facility] Rh Type Positive 10/14/2024 8:55 AM EDT [facility] Blood 10/14/2024 8:21 AM EDT 10/14/2024 8:33 AM EDT us Eleazar Nguyễn MD BLOOD BANK TEST ORDERAB LES Final Result Performing Organization Address [facility] Co de Phone Number [facility] [address] * (ABNORMAL) Protime-INR (10/14/2024 2:53 AM EDT) Protime 23.8(H) 12.1 - 15.1 seconds 10/14/2024 4:34 AM EDT [facility] INR 2.1(H) 0.9 - 1.1 10/14/2024 4:34 AM EDT [facility] Comment: RECOMMENDED THERAPEUTIC RANGES USING INR : Stable oral anticoagulant therapy: 2.0 - 3.0 Mechanical prosthetic heart valve: 2.5 - 3.5 Recurrent acute myocardial infarction: 2.5 - 3.5 Plasma 10/14/2024 2:53 AM EDT 10/14/2024 4:16 AM EDT us Eileen Schroeder MD, PhD LAB BLOOD ORDERABLES Final Result Performing Organization Address City/[facility]/ZIP Co de Phone Number [facility] [address] * (ABNORMAL) Hepatic Function Panel (10/14/2024 2:53 AM EDT) Total Bilirubin 7.2(H) 0.0 - 1.5 mg/dL 10/14/2024 4:45 AM EDT [facility] Bilirubin, Direct 3.86(H) 0.00 - 0.40 mg/dL 10/14/2024 4:45 AM EDT [facility] AST 41(H) 13 - 39 U/L 10/14/2024 4:45 AM EDT [facility] ALT 22 7 - 52 U/L 10/14/2024 4:45 AM EDT [facility] Alkaline Phosphatase 119 36 - 125 U/L 10/14/2024 4:45 AM EDT [facility] Total Protein 4.6(L) 6.4 - 8.9 g/dL 10/14/2024 4:45 AM EDT [facility] Albumin 3.3(L) 3.5 - 5.7 g/dL 10/14/2024 4:45 AM EDT [facility] Bilirubin, Indirect 3.34(H) 0.00 - 1.10 mg/dL 10/14/2024 4:45 AM EDT [facility] Plasma 10/14/2024 2:53 AM EDT 10/14/2024 4:16 AM EDT Eileen Schroeder MD, PhD LAB BLOOD ORDERABLES Final Result Performing Organization Address [facility] Co de Phone Number [facility] [address] * Magnesium (10/14/2024 2:53 AM EDT) Magnesium 1.9 1.5 - 2.5 mg/dL 10/14/2024 4:45 AM EDT [facility] Plasma 10/14/2024 2:53 AM EDT 10/14/2024 4:16 AM EDT Eileen Schroeder MD, PhD LAB BLOOD ORDERABLES Final Result [facility] [address] * (ABNORMAL) Renal Function Panel w/EGFR (10/14/2024 2:53 AM EDT) Sodium 136 133 - 146 mmol/L 10/14/2024 4:45 AM EDT [facility] Potassium 3.5 3.5 - 5.3 mmol/L 10/14/2024 4:45 AM EDT [facility] Chloride 107 98 - 110 mmol/L 10/14/2024 4:45 AM EDT [facility] CO2 16(L) 21 - 33 mmol/L 10/14/2024 4:45 AM EDT [facility] Anion Gap 13 3 - 16 mmol/L 10/14/2024 4:45 AM EDT [facility] BUN 55(H) 7 - 25 mg/dL 10/14/2024 4:45 AM EDT [facility] Creatinine 3.01(H) 0.60 - 1.30 mg/dL 10/14/2024 4:45 AM EDT [facility] Glucose 95 70 - 100 mg/dL 10/14/2024 4:45 AM EDT [facility] Calcium 8.5(L) 8.6 - 10.3 mg/dL 10/14/2024 4:45 AM EDT [facility] Phosphorus 4.4 2.1 - 4.7 mg/dL 10/14/2024 4:45 AM EDT [facility] Albumin 3.3(L) 3.5 - 5.7 g/dL 10/14/2024 4:45 AM EDT [facility] Osmolality, Calculated 297 278 - 305 mOsm/kg 10/14/2024 4:45 AM EDT [facility] EGFR 26 10/14/2024 4:45 AM EDT [facility] Comment:As [...] MD, PhD LAB BLOOD ORDERABLES Final Result [facility] [address] [place] [address], [facility] * (ABNORMAL) CBC (10/14/2024 2:53 AM EDT) WBC 5.5 3.8 - 10.8 10E3/uL 10/14/2024 5:00 AM EDT [facility] RBC 2.09(L) 4.20 - 5.80 10E6/uL 10/14/2024 5:00 AM EDT [facility] Hemoglobin 7.6(L) 13.2 - 17.1 g/dL 10/14/2024 5:00 AM EDT [facility] Hematocrit 21.3(L) 38.5 - 50.0 % 10/14/2024 5:00 AM EDT [facility] MCV 101.7(H) 80.0 - 100.0 fL 10/14/2024 5:00 AM EDT [facility] MCH 36.3(H) 27.0 - 33.0 pg 10/14/2024 5:00 AM EDT [facility] MCHC 35.7 32.0 - 36.0 g/dL 10/14/2024 5:00 AM EDT [facility] RDW 17.6(H) 11.0 - 15.0 % 10/14/2024 5:00 AM EDT [facility] Platelets 35(L) 140 - 400 10E3/uL 10/14/2024 5:00 AM EDT [facility] Comment: Specimen checked for clots. None detected. Slide Reviewed for PLT Clumps. None Seen. MPV 8.5 7.5 - 11.5 fL 10/14/2024 5:00 AM EDT [facility] Whole Blood 10/14/2024 2:53 AM EDT 10/14/2024 4:17 AM EDT us Eileen Schroeder MD, PhD LAB BLOOD ORDERABLES Final Result [facility] [address] [place] [address], [facility] * Cardiac Cath Documents Scan (10/14/2024 2:06 [...] mL of GADOBUTROL 1 MMOL/ML INTRAVENOUS SYRINGE ([facility]) administered intravenously COMPARISON: CT 09/03/2024. Ultrasound 10/07/2024. [...] mL of GADOBUTROL 1 MMOL/ML INTRAVENOUS SYRINGE ([facility])administered intravenously COMPARISON: CT 09/03/2024. Ultrasound 10/07/2024. Outside [...] 0.9 - 1.1 10/13/2024 6:12 AM EDT [facility] Comment: RECOMMENDED THERAPEUTIC RANGES USING INR : Stable oral anticoagulant therapy: 2.0 - 3.0 Mechanical prosthetic heart valve: 2.5 - 3.5 Recurrent acute myocardial infarction: 2.5 - 3.5 Plasma 10/13/2024 5:35 AM EDT 10/13/2024 5:52 AM EDT us Eileen Schroeder MD, PhD LAB BLOOD ORDERABLES Final Result Performing Organization Address [facility] Co de Phone Number [facility] [address] [facility] * (ABNORMAL) Hepatic Function Panel (10/13/2024 5:35 AM EDT) Total Bilirubin 6.5(H) 0.0 - 1.5 mg/dL 10/13/2024 6:30 AM EDT [facility] Bilirubin, Direct 3.53(H) 0.00 - 0.40 mg/dL 10/13/2024 6:30 AM EDT [facility] AST 42(H) 13 - 39 U/L 10/13/2024 6:30 AM EDT [facility] ALT 19 7 - 52 U/L 10/13/2024 6:30 AM EDT [facility] Alkaline Phosphatase 108 36 - 125 U/L 10/13/2024 6:30 AM EDT [facility] Total Protein 4.4(L) 6.4 - 8.9 g/dL 10/13/2024 6:30 AM EDT [facility] Albumin 3.1(L) 3.5 - 5.7 g/dL 10/13/2024 6:30 AM EDT [facility] Bilirubin, Indirect 2.97(H) 0.00 - 1.10 mg/dL 10/13/2024 6:30 AM EDT [facility] Plasma 10/13/2024 5:35 AM EDT 10/13/2024 5:52 AM EDT us Eileen Schroeder MD, PhD LAB BLOOD ORDERABLES Final Result Performing Organization Address [facility] Co de Phone Number [facility] [address] [facility] * Magnesium (10/13/2024 5:35 AM EDT) Magnesium 2.0 1.5 - 2.5 mg/dL 10/13/2024 6:30 AM EDT [facility] Plasma 10/13/2024 5:35 AM EDT 10/13/2024 5:52 AM EDT us Eileen Schroeder MD, PhD LAB BLOOD ORDERABLES Final Result [facility] [address] [place], [place] [address] * (ABNORMAL) Renal Function Panel w/EGFR (10/13/2024 5:35 AM EDT) Sodium 134 133 - 146 mmol/L 10/13/2024 6:30 AM EDT [facility] Potassium 3.7 3.5 - 5.3 mmol/L 10/13/2024 6:30 AM EDT [facility] Chloride 109 98 - 110 mmol/L 10/13/2024 6:30 AM EDT [facility] CO2 14(L) 21 - 33 mmol/L 10/13/2024 6:30 AM EDT [facility] Anion Gap 11 3 - 16 mmol/L 10/13/2024 6:30 AM EDT [facility] BUN 54(H) 7 - 25 mg/dL 10/13/2024 6:30 AM EDT [facility] Creatinine 2.99(H) 0.60 - 1.30 mg/dL 10/13/2024 6:30 AM EDT [facility] Glucose 116(H) 70 - 100 mg/dL 10/13/2024 6:30 AM EDT [facility] Calcium 8.3(L) 8.6 - 10.3 mg/dL 10/13/2024 6:30 AM EDT [facility] Phosphorus 4.5 2.1 - 4.7 mg/dL 10/13/2024 6:30 AM EDT [facility] Albumin 3.1(L) 3.5 - 5.7 g/dL 10/13/2024 6:30 AM EDT [facility] Osmolality, Calculated 294 278 - 305 mOsm/kg 10/13/2024 6:30 AM EDT [facility] EGFR 26 10/13/2024 6:30 AM EDT [facility] Comment:As of 2021, the estimated [...] MD, PhD LAB BLOOD ORDERABLES Final Result [facility] [address] [place] [address], [facility] * (ABNORMAL) CBC (10/13/2024 5:35 AM EDT) WBC 4.7 3.8 - 10.8 10E3/uL 10/13/2024 6:22 AM EDT [facility] RBC 2.06(L) 4.20 - 5.80 10E6/uL 10/13/2024 6:22 AM EDT [facility] Hemoglobin 7.4(L) 13.2 - 17.1 g/dL 10/13/2024 6:22 AM EDT [facility] Hematocrit 21.7(L) 38.5 - 50.0 % 10/13/2024 6:22 AM EDT [facility] MCV 105.4(H) 80.0 - 100.0 fL 10/13/2024 6:22 AM EDT [facility] MCH 35.9(H) 27.0 - 33.0 pg 10/13/2024 6:22 AM EDT [facility] MCHC 34.0 32.0 - 36.0 g/dL 10/13/2024 6:22 AM EDT [facility] RDW 18.5(H) 11.0 - 15.0 % 10/13/2024 6:22 AM EDT [facility] Platelets 35(L) 140 - 400 10E3/uL 10/13/2024 6:22 AM EDT [facility] Comment: CNV Specimen checked for clots. None detected. MPV 8.4 7.5 - 11.5 fL 10/13/2024 6:22 AM EDT [facility] Whole Blood 10/13/2024 5:35 AM EDT 10/13/2024 5:53 AM EDT us Eileen Schroeder MD, PhD LAB BLOOD ORDERABLES Final Result Performing Organization Address City/[facility]/ZIP Co de Phone Number [facility] [address] [facility] * (ABNORMAL) Ammonia (10/13/2024 5:35 AM EDT) Ammonia 203(HH) 27 - 90 ug/dL 10/13/2024 7:16 AM EDT [facility] Comment: HEMOLYSIS EVIDENT. RESULTS MAY BE INFLUENCED. Critical Result [id number] Called to and read back by: KEY MELO RN at: 10/13/2024 07:15:55 by:NISREEN Plasma 10/13/2024 5:35 AM EDT 10/13/2024 6:19 AM EDT us Ehsaun Mays DO LAB BLOOD ORDERABLES Final Resul t Performing Organization Address City/[facility]/ZIP Co de Phone Number [facility] [address] * CARISA Rhythm Strip - Scan [...] BLOOD ORDERABLES Final Result [facility] [address] [place] [address], [facility] * (ABNORMAL) Hepatic Function Panel (10/12/2024 5:44 AM EDT) Pathologist [facility] Total Bilirubin 6.5(H) 0.0 - 1.5 mg/dL 10/12/2024 6:29 AM EDT [facility] Bilirubin, Direct 3.64(H) 0.00 - 0.40 mg/dL 10/12/2024 6:29 AM EDT [facility] AST 40(H) 13 - 39 U/L 10/12/2024 6:29 AM EDT [facility] ALT 19 7 - 52 U/L 10/12/2024 6:29 AM EDT [facility] Alkaline Phosphatase 99 36 - 125 U/L 10/12/2024 6:29 AM EDT [facility] Total Protein 4.2(L) 6.4 - 8.9 g/dL 10/12/2024 6:29 AM EDT [facility] Albumin 3.1(L) 3.5 - 5.7 g/dL 10/12/2024 6:29 AM EDT [facility] Bilirubin, Indirect 2.86(H) 0.00 - 1.10 mg/dL 10/12/2024 6:29 AM EDT [facility] Plasma 10/12/2024 5:44 AM EDT 10/12/2024 5:58 AM EDT Eileen Schroeder MD, PhD LAB BLOOD ORDERABLES Final Result Performing Organization Address City/[facility]/ZIP Co de Phone Number [facility] [address] * Magnesium (10/12/2024 5:44 AM EDT) Magnesium 1.9 1.5 - 2.5 mg/dL 10/12/2024 6:29 AM EDT [facility] Plasma 10/12/2024 5:44 AM EDT 10/12/2024 5:58 AM EDT Eileen Schroeder MD, PhD LAB BLOOD ORDERABLES Final Result Performing Organization Address [facility] de Phone Number [facility] [address] * (ABNORMAL) Renal Function Panel w/EGFR (10/12/2024 5:44 AM EDT) Sodium 135 133 - 146 mmol/L 10/12/2024 6:29 AM EDT [facility] Potassium 3.7 3.5 - 5.3 mmol/L 10/12/2024 6:29 AM EDT [facility] Chloride 109 98 - 110 mmol/L 10/12/2024 6:29 AM EDT [facility] CO2 17(L) 21 - 33 mmol/L 10/12/2024 6:29 AM EDT [facility] Anion Gap 9 3 - 16 mmol/L 10/12/2024 6:29 AM EDT [facility] BUN 52(H) 7 - 25 mg/dL 10/12/2024 6:29 AM EDT [facility] Creatinine 2.94(H) 0.60 - 1.30 mg/dL 10/12/2024 6:29 AM EDT [facility] Glucose 121(H) 70 - 100 mg/dL 10/12/2024 6:29 AM EDT [facility] Calcium 8.5(L) 8.6 - 10.3 mg/dL 10/12/2024 6:29 AM EDT [facility] Phosphorus 4.6 2.1 - 4.7 mg/dL 10/12/2024 6:29 AM EDT [facility] Albumin 3.1(L) 3.5 - 5.7 g/dL 10/12/2024 6:29 AM EDT [facility] Osmolality, Calculated 295 278 - 305 mOsm/kg 10/12/2024 6:29 AM EDT [facility] EGFR 27 10/12/2024 6:29 AM EDT [facility] Comment:As [...] MD, PhD LAB BLOOD ORDERABLES Final Result [facility] [address] * (ABNORMAL) CBC (10/12/2024 5:44 AM EDT) WBC 3.3(L) 3.8 - 10.8 10E3/uL 10/12/2024 7:06 AM EDT [facility] RBC 1.95(L) 4.20 - 5.80 10E6/uL 10/12/2024 7:06 AM EDT [facility] Hemoglobin 7.2(L) 13.2 - 17.1 g/dL 10/12/2024 7:06 AM EDT [facility] Hematocrit 19.7(L) 38.5 - 50.0 % 10/12/2024 7:06 AM EDT [facility] [facility] MCV 101.2(H) 80.0 - 100.0 fL 10/12/2024 7:06 AM EDT [facility] MCH 37.0(H) 27.0 - 33.0 pg 10/12/2024 7:06 AM EDT [facility] MCHC 36.5(H) 32.0 - 36.0 g/dL 10/12/2024 7:06 AM EDT [facility] RDW 17.6(H) 11.0 - 15.0 % 10/12/2024 7:06 AM EDT [facility] Platelets 30(L) 140 - 400 10E3/uL 10/12/2024 7:06 AM EDT [facility] Comment: Specimen checked for clots. None detected. Slide Reviewed for PLT Clumps. None Seen. Platelet Estimate Decreased 10/12/2024 7:06 AM EDT [facility] MPV 8.3 7.5 - 11.5 fL 10/12/2024 7:06 AM EDT [facility] Whole Blood 10/12/2024 5:44 AM EDT 10/12/2024 5:58 AM EDT Narrative [facility] - 10/12/2024 7:06 AM EDT Peripheral blood smear was scanned per review criteria approved by the laboratory medical examiner. us Eileen Schroeder MD, PhD LAB BLOOD ORDERABLES Final Result [facility] [address] [id number], [facility] * CARISA Rhythm Strip - Scan [...] MD, PhD LAB BLOOD ORDERABLES Final Result [facility] [address] [id number], [facility] * (ABNORMAL) Hepatic Function Panel (10/11/2024 3:02 AM EDT) Total Bilirubin 7.3(H) 0.0 - 1.5 mg/dL 10/11/2024 3:38 AM EDT [facility] Bilirubin, Direct 3.85(H) 0.00 - 0.40 mg/dL 10/11/2024 3:38 AM EDT [facility] AST 39 13 - 39 U/L 10/11/2024 3:38 AM EDT [facility] ALT 20 7 - 52 U/L 10/11/2024 3:38 AM EDT [facility] Alkaline Phosphatase 88 36 - 125 U/L 10/11/2024 3:38 AM EDT [facility] Total Protein 4.5(L) 6.4 - 8.9 g/dL 10/11/2024 3:38 AM EDT [facility] Albumin 3.3(L) 3.5 - 5.7 g/dL 10/11/2024 3:38 AM EDT [facility] Bilirubin, Indirect 3.45(H) 0.00 - 1.10 mg/dL 10/11/2024 3:38 AM EDT [facility] Plasma 10/11/2024 3:02 AM EDT 10/11/2024 3:08 AM EDT us Eileen Schroeder MD, PhD LAB BLOOD ORDERABLES Final Result [facility] [address] * Magnesium (10/11/2024 3:02 AM EDT) Magnesium 2.0 1.5 - 2.5 mg/dL 10/11/2024 3:38 AM EDT [facility] Plasma 10/11/2024 3:02 AM EDT 10/11/2024 3:08 AM EDT Eileen Schroeder MD, PhD LAB BLOOD ORDERABLES Final Result Performing Organization Address [facility] Co de Phone Number [facility] [address] * (ABNORMAL) Renal Function Panel w/EGFR (10/11/2024 3:02 AM EDT) Sodium 134 133 - 146 mmol/L 10/11/2024 3:38 AM EDT [facility] Potassium 3.6 3.5 - 5.3 mmol/L 10/11/2024 3:38 AM EDT [facility] Chloride 108 98 - 110 mmol/L 10/11/2024 3:38 AM EDT [facility] CO2 16(L) 21 - 33 mmol/L 10/11/2024 3:38 AM EDT [facility] Anion Gap 10 3 - 16 mmol/L 10/11/2024 3:38 AM EDT [facility] BUN 49(H) 7 - 25 mg/dL 10/11/2024 3:38 AM EDT [facility] Creatinine 2.77(H) 0.60 - 1.30 mg/dL 10/11/2024 3:38 AM EDT [facility] Glucose 112(H) 70 - 100 mg/dL 10/11/2024 3:38 AM EDT [facility] Calcium 8.9 8.6 - 10.3 mg/dL 10/11/2024 3:38 AM EDT [facility] Phosphorus 3.5 2.1 - 4.7 mg/dL 10/11/2024 3:38 AM EDT [facility] Albumin 3.3(L) 3.5 - 5.7 g/dL 10/11/2024 3:38 AM EDT [facility] Osmolality, Calculated 292 278 - 305 mOsm/kg 10/11/2024 3:38 AM EDT [facility] EGFR 29 10/11/2024 3:38 AM EDT [facility] Comment:As [...] ORDERABLES Final Result Performing Organization Address City/State/[facility] Co de Phone Number [facility] [address] * (ABNORMAL) CBC (10/11/2024 3:02 AM EDT) WBC 4.0 3.8 - 10.8 10E3/uL 10/11/2024 3:55 AM EDT [facility] RBC 2.11(L) 4.20 - 5.80 10E6/uL 10/11/2024 3:55 AM EDT [facility] Hemoglobin 7.7(L) 13.2 - 17.1 g/dL 10/11/2024 3:55 AM EDT [facility] Hematocrit 21.2(L) 38.5 - 50.0 % 10/11/2024 3:55 AM EDT [facility] MCV 100.5(H) 80.0 - 100.0 fL 10/11/2024 3:55 AM EDT [facility] MCH 36.4(H) 27.0 - 33.0 pg 10/11/2024 3:55 AM EDT [facility] MCHC 36.2(H) 32.0 - 36.0 g/dL 10/11/2024 3:55 AM EDT [facility] RDW 17.9(H) 11.0 - 15.0 % 10/11/2024 3:55 AM EDT [facility] Platelets 32(L) 140 - 400 10E3/uL 10/11/2024 3:55 AM EDT [facility] Comment: Specimen checked for clots. None detected. Slide Reviewed for PLT Clumps. None Seen. Platelet Estimate Decreased 10/11/2024 3:55 AM EDT [facility] MPV 8.1 7.5 - 11.5 fL 10/11/2024 3:55 AM EDT [facility] Whole Blood 10/11/2024 3:02 AM EDT 10/11/2024 3:08 AM EDT Narrative [facility] - 10/11/2024 3:55 AM EDT Peripheral blood smear was scanned per review criteria approved by the laboratory medical examiner. us Eileen Schroeder MD, PhD LAB BLOOD ORDERABLES Final Result Performing Organization Address City/State/[facility] Co de Phone Number [facility] [address] [id number] * Vancomycin, random (10/11/2024 3:02 AM EDT) Vancomycin Random 13.4 ug/mL 10/11/2024 3:37 AM EDT [facility] Comment:Reference range not established for this test. Plasma 10/11/2024 3:02 AM EDT 10/11/2024 3:08 AM EDT us Jodi Angel PharmD LAB BLOOD ORDERABLES Final Result [facility] [address] [address], [facility] * IR Paracentesis incl imaging guide (10/10/2024 [...] diagnostic and therapeutic paracentesis. Bakari Wahl CNP, Medicaid Specialist Procedure and Findings: The procedure was performed [...] Using ultrasound guidance, a 10 cm, 5-F Combined Effortesis catheter was placed into the right lower [...] for diagnostic andtherapeutic paracentesis. Bakari Wahl CNP, Medicaid Specialist Procedure and Findings: The procedure was performed [...] 10/10/2024 3:31 PM EDT Chari Vanegas MD [facility] IR ORDERABLES Final Result * Stress Testing Lab - scan (10/10/2024 3:08 PM EDT) Scanning [facility] SCAN DOCS - NO RESULTS Final Res ult * (ABNORMAL) Body fluid cell count (10/10/2024 1:51 PM EDT) Color, Fluid Yellow(A) Colorless, Pale Yellow 10/10/2024 5:29 PM EDT [facility] Clarity, Fluid Clear 10/10/2024 5:29 PM EDT [facility] Neutrophil %, Fluid 9 % 10/10/2024 5:29 PM EDT [facility] Lymphocytes %, Fluid 13 % 10/10/2024 5:29 PM EDT [facility] Mesothelial %, Fluid 6 % 10/10/2024 5:29 PM EDT [facility] Macrophage %, Fluid 72 % 10/10/2024 5:29 PM EDT [facility] RBC, Fluid 2,662 /uL 10/10/2024 4:41 PM EDT [facility] Total Nucleated Cells, Fluid 89 /uL 10/10/2024 4:41 PM EDT [facility] Comment:Total Nucleated Cell s represent WBCs and other nucleated cells in the fluid such as lining cells. Ascitic Fluid ABDOMEN / Unknown 1:51 PM EDT 10/10/2024 3:56 PM EDT Result [facility] Gerri Peterson MD BODY FLUIDS AND STOOLS ORDERABL ES Final Result Performing Organization Address [facility] Co de Phone Number [facility] [address] [id number] * Body Fluid Culture plus Stain (10/10/2024 1:51 PM EDT) Gram Stain Result Cytospin Results: [facility] Gram Stain Result Polymorphonuclear Leukocytes Seen; [facility] Gram Stain Result No Organisms Seen; [facility] Culture Result No Growth After 5 Days [facility] Fluid ABDOMEN / Unknown 10/10/2024 1:51 PM EDT 10/10/2024 3:56 PM EDT Result [facility] Gerri Peterson MD MICROBIOLOGY - GENERAL ORDERABL ES Final Result [facility] [address] [place] [address], [facility] * UPPER GI ENDOSCOPY (10/10/2024 11:48 AM EDT) 10/10/2024 11:4 8 AM EDT Narrative [facility] - 10/10/2024 12:34 PM EDT [id number] Procedure Date: 10/10/2024 11:48 AM Patient Name: Julien Gilbert Date of : 1985 Admit Type: Inpatient Age: 39 Gender: Male Note Status: Finalized Attending MD: Lino Soto MD, [id number] Procedure: Upper GI endoscopy Indications: Gastroesopahgeal variceal [...] verified by the physician, the nurse, the skin pass operator and the microbiological laboratory technician in the pre-procedure area in the [...] to hypotension Procedure Code(s): --- Professional --- 86060, GC, Esophagogastroduodenoscopy, flexible, transoral; diagnostic, including collection of specimen(s) by brushing or washing, when performed (separate procedure) Diagnosis Code(s): --- Professional --- I85.00, Esophageal 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 All rights reserved. The codes documented in this report are preliminary and upon pm technician review may be revised to meet current [...] In: 12:10:16 PM Scope Out: 12:17:[address] [place] [address], [id number] us Provider Not In System PROCEDURE/MINOR SURGICAL ORDERABLES Final Result Performing Organization Address City/[facility] Co de Phone Number [facility] * (ABNORMAL) Protime-INR (10/10/2024 5:23 AM EDT) Protime 23.9(H) 12.1 - 15.1 seconds 10/10/2024 6:11 AM EDT [facility] INR 2.1(H) 0.9 - 1.1 10/10/2024 6:11 AM EDT [facility] Comment: RECOMMENDED THERAPEUTIC RANGES USING INR : Stable oral anticoagulant therapy: 2.0 - 3.0 Mechanical prosthetic heart valve: 2.5 - 3.5 Recurrent acute myocardial infarction: 2.5 - 3.5 Plasma 10/10/2024 5:23 AM EDT 10/10/2024 5:50 AM EDT us Eileen Schroeder MD, PhD LAB BLOOD ORDERABLES Final Result [facility] [address] [place] [address]. [address] * (ABNORMAL) Hepatic Function Panel (10/10/2024 5:23 AM EDT) Total Bilirubin 8.6(H) 0.0 - 1.5 mg/dL 10/10/2024 6:21 AM EDT [facility] Bilirubin, Direct 4.65(H) 0.00 - 0.40 mg/dL 10/10/2024 6:21 AM EDT [facility] AST 40(H) 13 - 39 U/L 10/10/2024 6:21 AM EDT [facility] ALT 22 7 - 52 U/L 10/10/2024 6:21 AM EDT [facility] Alkaline Phosphatase 118 36 - 125 U/L 10/10/2024 6:21 AM EDT [facility] Total Protein 4.6(L) 6.4 - 8.9 g/dL 10/10/2024 6:21 AM EDT [facility] Albumin 3.3(L) 3.5 - 5.7 g/dL 10/10/2024 6:21 AM EDT [facility] Bilirubin, Indirect 3.95(H) 0.00 - 1.10 mg/dL 10/10/2024 6:21 AM EDT [facility] Plasma 10/10/2024 5:23 AM EDT 10/10/2024 5:50 AM EDT us Eileen Schroeder MD, PhD LAB BLOOD ORDERABLES Final Result [facility] [address] [facility]. [address] * Magnesium (10/10/2024 5:23 AM EDT) Magnesium 1.9 1.5 - 2.5 mg/dL 10/10/2024 6:21 AM EDT [facility] Plasma 10/10/2024 5:23 AM EDT 10/10/2024 5:50 AM EDT Eileen Schroeder MD, PhD LAB BLOOD ORDERABLES Final Result [facility] [address] [place] [address], [facility] * (ABNORMAL) Renal Function Panel w/EGFR (10/10/2024 5:23 AM EDT) Sodium 135 133 - 146 mmol/L 10/10/2024 6:21 AM EDT [facility] Potassium 3.6 3.5 - 5.3 mmol/L 10/10/2024 6:21 AM EDT [facility] Chloride 108 98 - 110 mmol/L 10/10/2024 6:21 AM EDT [facility] CO2 17(L) 21 - 33 mmol/L 10/10/2024 6:21 AM EDT [facility] Anion Gap 10 3 - 16 mmol/L 10/10/2024 6:21 AM EDT [facility] BUN 53(H) 7 - 25 mg/dL 10/10/2024 6:21 AM EDT [facility] Creatinine 2.85(H) 0.60 - 1.30 mg/dL 10/10/2024 6:21 AM EDT [facility] Glucose 113(H) 70 - 100 mg/dL 10/10/2024 6:21 AM EDT [facility] Calcium 9.0 8.6 - 10.3 mg/dL 10/10/2024 6:21 AM EDT [facility] Phosphorus 3.3 2.1 - 4.7 mg/dL 10/10/2024 6:21 AM EDT [facility] Albumin 3.3(L) 3.5 - 5.7 g/dL 10/10/2024 6:21 AM EDT [facility] Osmolality, Calculated 295 278 - 305 mOsm/kg 10/10/2024 6:21 AM EDT [facility] EGFR 28 10/10/2024 6:21 AM EDT [facility] Comment:As [...] MD, PhD LAB BLOOD ORDERABLES Final Result [facility] [address] [place] [address], [facility] * (ABNORMAL) CBC (10/10/2024 5:23 AM EDT) WBC 5.1 3.8 - 10.8 10E3/uL 10/10/2024 6:14 AM EDT [facility] RBC 2.04(L) 4.20 - 5.80 10E6/uL 10/10/2024 6:14 AM EDT [facility] Hemoglobin 7.3(L) 13.2 - 17.1 g/dL 10/10/2024 6:14 AM EDT [facility] Hematocrit 20.6(L) 38.5 - 50.0 % 10/10/2024 6:14 AM EDT [facility] MCV 101.2(H) 80.0 - 100.0 fL 10/10/2024 6:14 AM EDT [facility] MCH 36.0(H) 27.0 - 33.0 pg 10/10/2024 6:14 AM EDT [facility] MCHC 35.5 32.0 - 36.0 g/dL 10/10/2024 6:14 AM EDT [facility] RDW 17.6(H) 11.0 - 15.0 % 10/10/2024 6:14 AM EDT [facility] Platelets 39(L) 140 - 400 10E3/uL 10/10/2024 6:14 AM EDT [facility] Comment: CNV Specimen checked for clots. None detected. MPV 9.8 7.5 - 11.5 fL 10/10/2024 6:14 AM EDT [facility] Whole Blood 10/10/2024 5:23 AM EDT 10/10/2024 5:51 AM EDT us Eileen Schroeder MD, PhD LAB BLOOD ORDERABLES Final Result Performing Organization Address [facility]/ZIP Co de Phone Number [facility] [address] [place] [address] * Vancomycin, random (10/10/2024 5:23 AM EDT) Vancomycin Random 16.4 ug/mL 10/10/2024 6:22 AM EDT [facility] Comment:Reference range not established for this test. Plasma 10/10/2024 5:23 AM EDT 10/10/2024 5:51 AM EDT us Jodi Ortiz PharmD LAB BLOOD ORDERABLES Final Result Performing Organization Address [facility] de Phone Number [facility] [address] [place] [address] * ECHO STRESS W/ CONTRAST (10/09/2024 4:37 PM EDT) Anatomical Region Laterality Modality Chest Ultrasound 10/09/2024 2:40 PM EDT Narrative 10/09/2024 6:45 PM EDT * [facility]* [address] [place] [address] Stress Echocardiogram Patient: Julien Gilbert Room: 8142 Height: 76in MR Number: [id number] : 1985 Weight: 262lb Account: [id number] Gender: M BP: 125 / 77 Study Date: 10/09/2024 Age: 39 BSA: 2.48m^2 Referring physician: Gerri Peterson Interpreting physician: Tonya Henriquez MD FELLOW Lisa Yudelka, MD DARRELL Henriquez MD JEWEL STRINGER [employer] ORDERING Gerri Peterson REFERRING Gerri [...] was augmented by the addition of hand tank filler and leg lifts. The infusion was terminated [...] at baseline or with provocation, shows no kdjkr-yx-rvpu atrial level shunt. - Pulmonary arteries: Systolic [...] at baseline or with provocation, shows no tpdjd-bs-csey atrial level shunt. Pulmonary artery: - Systolic [...] at baseline or with provocation, shows no xlvsz-fz-piqm atrial level shunt. Pericardium: - There is [...] peak heart rate and blood pressure was 35656wv Hg/min. Stress testing did not produce any [...] Reviewed and confirmed by Tonya Henriquez MD [id number] Procedure Note Tonya Henriquez MD - 10/09/2024 * [facility]* [address] [place] [address] Stress Echocardiogram Patient: Julien Gilbert Room: 42 Height: 76in MR Number: [id number] : 1985 Weight: 262lb Account: [id number] Gender: M BP: 125 / 77 Study Date: 10/09/2024 Age: 39 BSA: 2.48m^2 Referring physician: Gerri Peterson Interpreting physician: Tonya Henriquez MD FELLOW Lisa Jha MD PERFORMING Tonya Henriquez MD JEWEL STRINGER [employer] ORDERING Gerri Peterson REFERRING Gerri Peterson ATTENDING Fouzia Rene ADMITTING Angie Blanchard Procedure:STRESS ECHO - PHARMACOLOGIC Order: Indications: Pre-Operative Clearance (Z01.818). PMH: EtOH Use Disorder. Risk factors: Hypertension. Dyslipidemia. Study data: Height: 76in. 193cm. Weight: 262lb. 118.8kg. The previousstudy was not available, so comparison was made to the report of 07/15/2024. Study status: Routine. Procedure: [facility]. [...] was augmented by the addition of hand tank filler and leg lifts. The infusion was terminated [...] at baseline or with provocation, shows no xeovb-mp-gnkq atrial level shunt. - Pulmonary arteries: Systolic [...] study at baseline or with provocation, showsno gmirz-dc-btxu atrial level shunt. Pulmonary artery: - Systolic [...] at baseline or with provocation, shows no duwky-nk-dkih atrial level shunt. Pericardium: - There is [...] heart rate). The maximal predicted heart rate [id number]. The target heart rate was 152bpm. The target heart rate was achieved.The heart rate response to stress is normal. There is a normal resting blood pressure with an appropriate response to stress. The rate-pressureproduct for the peak heart rate and blood pressure was 37600wn Hg/min. Stress testing did not produce any [...] Reviewed and confirmed by Tonya Henriquez MD [id number] us Gerri Peterson MD CV ECHO ORDERABLES Final Result * (ABNORMAL) Renal Function Panel w/EGFR, STAT (10/09/2024 1:05 PM EDT) Sodium 134 133 - 146 mmol/L 10/09/2024 2:10 PM EDT [facility] Potassium 3.7 3.5 - 5.3 mmol/L 10/09/2024 2:10 PM EDT [facility] Chloride 105 98 - 110 mmol/L 10/09/2024 2:10 PM EDT [facility] CO2 17(L) 21 - 33 mmol/L 10/09/2024 2:10 PM EDT [facility] Anion Gap 12 3 - 16 mmol/L 10/09/2024 2:10 PM EDT [facility] BUN 53(H) 7 - 25 mg/dL 10/09/2024 2:10 PM EDT [facility] Creatinine 2.89(H) 0.60 - 1.30 mg/dL 10/09/2024 2:10 PM EDT [facility] Glucose 108(H) 70 - 100 mg/dL 10/09/2024 2:10 PM EDT [facility] Calcium 9.3 8.6 - 10.3 mg/dL 10/09/2024 2:10 PM EDT [facility] Phosphorus 3.4 2.1 - 4.7 mg/dL 10/09/2024 2:10 PM EDT [facility] Albumin 3.6 3.5 - 5.7 g/dL 10/09/2024 2:10 PM EDT [facility] Osmolality, Calculated 293 278 - 305 mOsm/kg 10/09/2024 2:10 PM EDT [facility] EGFR 27 10/09/2024 2:10 PM EDT [facility] Comment:As [...] MD, PhD LAB BLOOD ORDERABLES Final Result [facility] [address] [place] [address], [facility] * (ABNORMAL) Renal Function Panel w/EGFR, STAT (10/09/2024 8:14 AM EDT) Sodium 134 133 - 146 mmol/L 10/09/2024 8:47 AM EDT [facility] Potassium 3.4(L) 3.5 - 5.3 mmol/L 10/09/2024 8:47 AM EDT [facility] Chloride 107 98 - 110 mmol/L 10/09/2024 8:47 AM EDT [facility] CO2 17(L) 21 - 33 mmol/L 10/09/2024 8:47 AM EDT [facility] Anion Gap 10 3 - 16 mmol/L 10/09/2024 8:47 AM EDT [facility] BUN 54(H) 7 - 25 mg/dL 10/09/2024 8:47 AM EDT [facility] Creatinine 3.04(H) 0.60 - 1.30 mg/dL 10/09/2024 8:47 AM EDT [facility] Glucose 124(H) 70 - 100 mg/dL 10/09/2024 8:47 AM EDT [facility] Calcium 9.0 8.6 - 10.3 mg/dL 10/09/2024 8:47 AM EDT [facility] Phosphorus 3.5 2.1 - 4.7 mg/dL 10/09/2024 8:47 AM EDT [facility] Albumin 3.4(L) 3.5 - 5.7 g/dL 10/09/2024 8:47 AM EDT [facility] Osmolality, Calculated 294 278 - 305 mOsm/kg 10/09/2024 8:47 AM EDT [facility] EGFR 26 10/09/2024 8:47 AM EDT [facility] Comment:As [...] ORDERABLES Final Resu lt Performing Organization Address City/[facility]/ZIP Co de Phone Number [facility] [address] * Prepare RBC, leukoreduced, 1 Units (10/09/2024 6:16 AM EDT) Product Code [id number] [facility] Unit Number [id number] [facility] Dispense Status Presumed Transfused_PT [facility] Blood Expiration Date [id number] [facility] Coding System [id number] [facility] Product us Eileen Schroeder MD, PhD BLOOD BANK PRODUCT OR DERABLES Final Result [facility] * (ABNORMAL) Protime-INR (10/09/2024 4:59 AM EDT) Protime 26.5(H) 12.1 - 15.1 seconds 10/09/2024 6:30 AM EDT [facility] INR 2.4(H) 0.9 - 1.1 10/09/2024 6:30 AM EDT [facility] Comment: RECOMMENDED THERAPEUTIC RANGES USING INR : Stable oral anticoagulant therapy: 2.0 - 3.0 Mechanical prosthetic heart valve: 2.5 - 3.5 Recurrent acute myocardial infarction: 2.5 - 3.5 Plasma 10/09/2024 4:59 AM EDT 10/09/2024 5:55 AM EDT us Eileen Schroeder MD, PhD LAB BLOOD ORDERABLES Final Result Performing Organization Address [facility] Co de Phone Number [facility] [address] [facility]. [address] * (ABNORMAL) Hepatic Function Panel (10/09/2024 4:59 AM EDT) Total Bilirubin 9.0(H) 0.0 - 1.5 mg/dL 10/09/2024 6:42 AM EDT [facility] Bilirubin, Direct 4.60(H) 0.00 - 0.40 mg/dL 10/09/2024 6:42 AM EDT [facility] AST 38 13 - 39 U/L 10/09/2024 6:42 AM EDT [facility] ALT 18 7 - 52 U/L 10/09/2024 6:42 AM EDT [facility] Alkaline Phosphatase 122 36 - 125 U/L 10/09/2024 6:42 AM EDT [facility] Total Protein 4.8(L) 6.4 - 8.9 g/dL 10/09/2024 6:42 AM EDT [facility] Albumin 3.4(L) 3.5 - 5.7 g/dL 10/09/2024 6:42 AM EDT [facility] Bilirubin, Indirect 4.40(H) 0.00 - 1.10 mg/dL 10/09/2024 6:42 AM EDT [facility] Plasma 10/09/2024 4:59 AM EDT 10/09/2024 5:57 AM EDT us Eileen Schroeder MD, PhD LAB BLOOD ORDERABLES Final Result Performing Organization Address [facility]/ZIP Co de Phone Number [facility] [address] [facility]. [address] * Magnesium (10/09/2024 4:59 AM EDT) Magnesium 1.8 1.5 - 2.5 mg/dL 10/09/2024 6:42 AM EDT [facility] Plasma 10/09/2024 4:59 AM EDT 10/09/2024 5:57 AM EDT us Eileen Schroeder MD, PhD LAB BLOOD ORDERABLES Final Result [facility] [address] * (ABNORMAL) Renal Function Panel w/EGFR (10/09/2024 4:59 AM EDT) Sodium 134 133 - 146 mmol/L 10/09/2024 6:42 AM EDT [facility] Potassium 3.3(L) 3.5 - 5.3 mmol/L 10/09/2024 6:42 AM EDT [facility] Chloride 107 98 - 110 mmol/L 10/09/2024 6:42 AM EDT [facility] CO2 16(L) 21 - 33 mmol/L 10/09/2024 6:42 AM EDT [facility] Anion Gap 11 3 - 16 mmol/L 10/09/2024 6:42 AM EDT [facility] BUN 56(H) 7 - 25 mg/dL 10/09/2024 6:42 AM EDT [facility] Creatinine 2.98(H) 0.60 - 1.30 mg/dL 10/09/2024 6:42 AM EDT [facility] Glucose 112(H) 70 - 100 mg/dL 10/09/2024 6:42 AM EDT [facility] Calcium 9.0 8.6 - 10.3 mg/dL 10/09/2024 6:42 AM EDT [facility] Phosphorus 3.5 2.1 - 4.7 mg/dL 10/09/2024 6:42 AM EDT [facility] Albumin 3.4(L) 3.5 - 5.7 g/dL 10/09/2024 6:42 AM EDT [facility] Osmolality, Calculated 294 278 - 305 mOsm/kg 10/09/2024 6:42 AM EDT [facility] EGFR 26 10/09/2024 6:42 AM EDT [facility] Comment:As [...] MD, PhD LAB BLOOD ORDERABLES Final Result [facility] [address] [place] [address], [facility] * (ABNORMAL) CBC (10/09/2024 4:59 AM EDT) WBC 4.6 3.8 - 10.8 10E3/uL 10/09/2024 6:21 AM EDT [facility] RBC 2.17(L) 4.20 - 5.80 10E6/uL 10/09/2024 6:21 AM EDT [facility] Hemoglobin 8.0(L) 13.2 - 17.1 g/dL 10/09/2024 6:21 AM EDT [facility] Hematocrit 21.8(L) 38.5 - 50.0 % 10/09/2024 6:21 AM EDT [facility] MCV 100.5(H) 80.0 - 100.0 fL 10/09/2024 6:21 AM EDT [facility] MCH 36.7(H) 27.0 - 33.0 pg 10/09/2024 6:21 AM EDT [facility] MCHC 36.5(H) 32.0 - 36.0 g/dL 10/09/2024 6:21 AM EDT [facility] RDW 18.1(H) 11.0 - 15.0 % 10/09/2024 6:21 AM EDT [facility] Platelets 36(L) 140 - 400 10E3/uL 10/09/2024 6:21 AM EDT [facility] Comment:Specimen checked for clots. None detected. MPV 8.3 7.5 - 11.5 fL 10/09/2024 6:21 AM EDT [facility] Whole Blood 10/09/2024 4:59 AM EDT 10/09/2024 5:56 AM EDT us Eileen Schroeder MD, PhD LAB BLOOD ORDERABLES Final Result Performing Organization Address City/[facility]/ZIP Co de Phone Number [facility] [facility] [address] * Renal Tx Recipient (10/09/2024 4:59 AM EDT) [facility] Renal Transplant Recipient The request and specimen(s) for this test have been received and transported to the [facility] at [address] [place] [address]. The [facility] will report results directly to the client. 10/09/2024 7:26 AM EDT [facility] Blood 10/09/2024 4:59 AM EDT 10/09/2024 7:26 AM EDT us Aaron Gonzalez MD LAB BLOOD ORDERABLES Final Resu lt [facility] [address] * Vancomycin, random (10/09/2024 4:59 AM EDT) [facility] Vancomycin Random 11.0 ug/mL 10/09/2024 6:33 AM EDT [facility] Comment:Reference range not established for this test. Plasma 10/09/2024 4:59 AM EDT 10/09/2024 5:56 AM EDT us Jodi Ortiz PharmD LAB BLOOD ORDERABLES Final Result [facility] [address] [id number], [facility] * (ABNORMAL) CBC (10/08/2024 5:52 PM EDT) [facility] WBC 5.6 3.8 - 10.8 10E3/uL 10/08/2024 6:52 PM EDT [facility] RBC 2.38(L) 4.20 - 5.80 10E6/uL 10/08/2024 6:52 PM EDT [facility] Hemoglobin 8.3(L) 13.2 - 17.1 g/dL 10/08/2024 6:52 PM EDT [facility] Hematocrit 24.6(L) 38.5 - 50.0 % 10/08/2024 6:52 PM EDT [facility] MCV 103.2(H) 80.0 - 100.0 fL 10/08/2024 6:52 PM EDT [facility] MCH 34.7(H) 27.0 - 33.0 pg 10/08/2024 6:52 PM EDT [facility] MCHC 33.6 32.0 - 36.0 g/dL 10/08/2024 6:52 PM EDT [facility] RDW 18.5(H) 11.0 - 15.0 % 10/08/2024 6:52 PM EDT [facility] Platelets 39(L) 140 - 400 10E3/uL 10/08/2024 6:52 PM EDT [facility] Comment:CNV MPV 8.1 7.5 - 11.5 fL 10/08/2024 6:52 PM EDT [facility] Whole Blood 10/08/2024 5:52 PM EDT 10/08/2024 6:45 PM EDT us Eileen Schroeder MD, PhD LAB BLOOD ORDERABLES Final Result Performing Organization Address City/[facility]/ZIP Co de Phone Number [facility] [address] * Transfuse RBC Has consent been obtained? Yes; Transfusion Rate: Per dept routine (10/08/2024 1:17 PM EDT) us Eileen Schroeder MD, PhD NURSING TREATMENT ORD ERABLES - BLOOD ADMIN Final Result Performing Organization Address City/[facility]/ZIP Co de Phone Number EXTERNAL * Transfuse RBC Has consent been obtained? Yes; Transfusion Rate: Per dept routine, 1 Units (10/08/2024 1:17 PM EDT) us Eileen Schroeder MD, PhD NURSING TREATMENT ORD ERABLES - BLOOD ADMIN Final Result Performing Organization Address City/[facility] Co de Phone Number EXTERNAL * (ABNORMAL) MMR(IgG) Panel (Measles, Mumps, Rubella) (10/08/2024 10:25 AM EDT) [facility] Signature Mumps IgG Positive 10/08/2024 11:39 AM EDT [facility] MUMPS IGG NUM 99.00(H) 0.0 - 8.9 U/mL 10/08/2024 11:39 AM EDT [facility] Rubella IgG Scr Positive 10/08/2024 11:40 AM EDT [facility] RUB NUM 4.15(H) 0.00 - 0.89 INDEX 10/08/2024 11:40 AM EDT [facility] Rubeola Ab, IgG Positive 10/08/2024 11:39 AM EDT [facility] RUB IGG NUM 273.00(H) 0.00 - 13.40 U/mL 10/08/2024 11:39 AM EDT [facility] Serum 10/08/2024 10:2 5 AM EDT 10/08/2024 10:49 AM EDT Narrative [facility] - 10/08/2024 11:40 AM EDT [...] ORDERABLES Final Resu lt Performing Organization Address City/[facility]/ZIP Co de Phone Number [facility] [address] [facility]. [address] * (ABNORMAL) Hemoglobin A1C (10/08/2024 10:25 AM [...] 5 AM EDT 10/08/2024 10:51 AM EDT Result [facility] Gerri Peterson MD LAB BLOOD ORDERABLES Final Resu lt Performing Organization Address [facility] Co de Phone Number [facility] [address] [facility]. [address] * (ABNORMAL) Vitamin D 25 Hydroxy (10/08/2024 10:25 AM EDT) Vit D, 25-Hydroxy 7.1(L) 30.0 - 100.0 ng/mL 10/08/2024 11:36 AM EDT [facility] Comment: Vitamin D deficiency has been defined by the [place] of Medicine (IOM) and an Endocrine Society practice guideline as a level of serum 25-OH Vitamin D less than 20 ng/mL. The Endocrine Society went on to further define Vitamin D insufficiency as a level between 21-29 ng/mL. 1) IOM. 2011 Dietary reference intakes for calcium and D. Majano D.C: The National Academies Press 2) Allison MF, Saturnino NC, Tory MILLER, et al. Evaluation, treatment, and prevention of Vitamin D deficiency: an Endocrine Society clinical practice guideline. JCEM. 2010; 96(7):1911-30. Serum 10/08/2024 10:2 5 AM EDT 10/08/2024 10:49 AM EDT Gerri Peterson MD LAB BLOOD ORDERABLES Final Resu lt Performing Organization Address [facility] Co de Phone Number [facility] [address] [facility]. [address] * Iron Studies (Iron + TIBC) (10/08/2024 10:25 AM EDT) Iron 81 50 - 212 ug/dL 10/08/2024 11:23 AM EDT [facility] % Iron Saturation SEE COMMENT 15.0 - 55.0 % 10/08/2024 11:23 AM EDT [facility] Comment:Unable to calculate result because contributing result outside reportable range.. TIBC SEE COMMENT 261 - 462 ug/dL 10/08/2024 11:23 AM EDT [facility] Comment:Unable to calculate result because contributing result outside reportable range.. Serum 10/08/2024 10:2 5 AM EDT 10/08/2024 10:49 AM EDT Gerri Peterson MD LAB BLOOD ORDERABLES Final Resu lt Performing Organization Address [facility] Co de Phone Number [facility] [address] [facility]. [address] * (ABNORMAL) Ferritin (10/08/2024 10:25 AM EDT) Ferritin 706.9(H) 23.9 - 336.2 ng/mL 10/08/2024 11:35 AM EDT [facility] Serum 10/08/2024 10:2 5 AM EDT 10/08/2024 10:49 AM EDT us Gerri Peterson MD LAB BLOOD ORDERABLES Final Resu lt [facility] [address] [facility]. [address] * QuantiFERON TB2 Ag (10/08/2024 10:25 AM EDT) QuantiFERON TB2 Ag Value 0.07 10/10/2024 10:41 AM EDT [facility] Plasma 10/08/2024 10:2 5 AM EDT 10/08/2024 11:05 AM EDT us Gerri Peterson MD LAB BLOOD ORDERABLES Final Resu lt Performing Organization Address [facility]/ZIP Co de Phone Number [facility] [address] [facility]. [address] * QuantiFERON TB1 Ag (10/08/2024 10:25 AM EDT) QuantiFERON TB1 Ag Value 0.06 10/10/2024 10:41 AM EDT [facility] Plasma 10/08/2024 10:2 5 AM EDT 10/08/2024 11:05 AM EDT us Gerri Peterson MD LAB BLOOD ORDERABLES Final Resu lt Performing Organization Address City/[facility]/ZIP Co de Phone Number [facility] [address] [facility]. [address] * QuantiFERON Nil (10/08/2024 10:25 AM EDT) QuantiFERON Nil 0.06 10:41 AM EDT [facility] Plasma 10/08/2024 10:2 5 AM EDT 10/08/2024 11:05 AM EDT us Gerri Peterson MD LAB BLOOD ORDERABLES Final Resu lt [facility] [address] * QuantiFERON Mitogen (10/08/2024 10:25 AM EDT) QuantiFERON Interpretation Negative Negative 10/10/2024 10:[address] [facility] Comment:Negative result geovanny cates M. tuberculosis infection is NOT likely. Negative results do not preclude tuberculosis infection (especially in immunosuppressed patients). Negative results have a TB antigen minus Nil value less than 0.35 IU/mL. In cases with high suspicion of disease, retesting or additional testing with medical evaluation may be useful. QuantiFERON Mitogen 4.87 10/10 10:[address] [facility] Plasma 10/08/2024 10:2 5 AM EDT 10/08/2024 11:05 AM EDT Narrative [facility] - 10/10/2024 10:41 AM EDT [...] especially in immunosuppressed states. Please see www.cdc.gov/tb. us Gerri Peterson MD LAB BLOOD ORDERABLES Final Resu lt [facility] [address] * Reticulocyte Count, Auto (10/08/2024 7:41 AM EDT) Pathologist [facility] Retic Ct Pct 1.35 0.50 - 2.00 % 10/08/2024 9:12 AM EDT [facility] Retic Ct Abs 26,190 25,000 - 90,000 /uL 10/08/2024 9:14 AM EDT [facility] Immature Retic Fract 0.37 0.09 - 0.56 10/08/2024 9:12 AM EDT [facility] Whole Blood 10/08/2024 7:41 AM EDT 10/08/2024 8:51 AM EDT Angie Blanchard MD LAB BLOOD ORDERABLES Final Res ult [facility] [address] [facility]. [address] * (ABNORMAL) Haptoglobin (10/08/2024 7:41 AM EDT) Haptoglobin <30(L) 44 - 215 mg/dL 10/08/2024 8:53 AM EDT [facility] Serum 10/08/2024 7:41 AM EDT 10/08/2024 7:51 AM EDT Eileen Schroeder MD, PhD LAB BLOOD ORDERABLES Final Result Performing Organization Address [facility]/ZIP Co de Phone Number [facility] [address] [facility]. [address] * (ABNORMAL) CBC - Post Transfusion (10/08/2024 7:41 AM EDT) WBC 3.7(L) 3.8 - 10.8 10E3/uL 10/08/2024 8:34 AM EDT [facility] RBC 1.94(L) 4.20 - 5.80 10E6/uL 10/08/2024 8:34 AM EDT [facility] Hemoglobin 7.1(L) 13.2 - 17.1 g/dL 10/08/2024 8:34 AM EDT [facility] Hematocrit 20.0(L) 38.5 - 50.0 % 10/08/2024 8:34 AM EDT [facility] MCV 103.1(H) 80.0 - 100.0 fL 10/08/2024 8:34 AM EDT [facility] MCH 36.5(H) 27.0 - 33.0 pg 10/08/2024 8:34 AM EDT [facility] MCHC 35.4 32.0 - 36.0 g/dL 10/08/2024 8:34 AM EDT [facility] RDW 17.2(H) 11.0 - 15.0 % 10/08/2024 8:34 AM EDT [facility] Platelets 37(L) 140 - 400 10E3/uL 10/08/2024 8:34 AM EDT [facility] Comment: Specimen checked for clots. None detected. Slide Reviewed for PLT Clumps. None Seen. _Platelet Morphology Normal _Platelets Appear Decreased MPV 8.7 7.5 - 11.5 fL 10/08/2024 8:34 AM EDT [facility] Whole Blood 10/08/2024 7:41 AM EDT 10/08/2024 7:52 AM EDT [facility] - 10/08/2024 8:34 AM EDT Post-transfusion Eileen Schroeder MD, PhD LAB BLOOD ORDERABLES Final Result Performing Organization Address City/[facility]/ZIP Co de Phone Number [facility] [address] * Antibody Screen (10/08/2024 7:41 AM EDT) Antibody Screen Negative 10/08/2024 8:[address] [facility] Blood 10/08/2024 7:41 AM EDT 10/08/2024 7:57 AM EDT [facility] - 10/08/2024 8:32 AM EDT Testing performed by [facility] Transfusion Service us Eileen Schroeder MD, PhD BLOOD BANK TEST ORDER PAL Final Result [facility] [address] * ABO/Rh (10/08/2024 7:41 AM EDT) ABO Grouping O 10/08/2024 8:14 AM EDT [facility] Rh Type Positive 10/08/2024 8:14 AM EDT [facility] Blood 10/08/2024 7:41 AM EDT 10/08/2024 7:57 AM EDT Eileen Schroeder MD, PhD BLOOD BANK TEST ORDER PAL Final Result Performing Organization Address City/[facility]/ZIP Co de Phone Number [facility] [address] [facility]. [address] * (ABNORMAL) Lactate dehydrogenase (10/08/2024 5:36 AM EDT) LD 102(L) 110 - 270 U/L 10/08/2024 8:20 AM EDT [facility] Plasma 10/08/2024 5:36 AM EDT 10/08/2024 7:58 AM EDT Angie Blanchard MD LAB BLOOD ORDERABLES Final Res ult Performing Organization Address [facility] Co de Phone Number [facility] [address] [facility]. [address] * (ABNORMAL) Protime-INR (10/08/2024 5:36 AM EDT) Protime 26.9(H) 12.1 - 15.1 seconds 10/08/2024 6:11 AM EDT [facility] INR 2.4(H) 0.9 - 1.1 10/08/2024 6:11 AM EDT [facility] Comment: RECOMMENDED THERAPEUTIC RANGES USING INR : Stable oral anticoagulant therapy: 2.0 - 3.0 Mechanical prosthetic heart valve: 2.5 - 3.5 Recurrent acute myocardial infarction: 2.5 - 3.5 Plasma 10/08/2024 5:36 AM EDT 10/08/2024 5:52 AM EDT Eileen Schroeder MD, PhD LAB BLOOD ORDERABLES Final Result Performing Organization Address [facility] Co de Phone Number [facility] [address] [facility]. [address] * (ABNORMAL) Hepatic Function Panel (10/08/2024 5:36 AM EDT) Total Bilirubin 7.7(H) 0.0 - 1.5 mg/dL 10/08/2024 6:25 AM EDT [facility] Bilirubin, Direct 4.28(H) 0.00 - 0.40 mg/dL 10/08/2024 6:25 AM EDT [facility] AST 34 13 - 39 U/L 10/08/2024 6:25 AM EDT [facility] ALT 16 7 - 52 U/L 10/08/2024 6:25 AM EDT [facility] Alkaline Phosphatase 103 36 - 125 U/L 10/08/2024 6:25 AM EDT [facility] Total Protein 4.7(L) 6.4 - 8.9 g/dL 10/08/2024 6:25 AM EDT [facility] Albumin 3.5 3.5 - 5.7 g/dL 10/08/2024 6:25 AM EDT [facility] Bilirubin, Indirect 3.42(H) 0.00 - 1.10 mg/dL 10/08/2024 6:25 AM EDT [facility] Plasma 10/08/2024 5:36 AM EDT 10/08/2024 5:52 AM EDT Eileen Schroeder MD, PhD LAB BLOOD ORDERABLES Final Result [facility] [address] * Magnesium (10/08/2024 5:36 AM EDT) Magnesium 1.9 1.5 - 2.5 mg/dL 10/08/2024 6:25 AM EDT [facility] Plasma 10/08/2024 5:36 AM EDT 10/08/2024 5:52 AM EDT Eileen Schroeder MD, PhD LAB BLOOD ORDERABLES Final Result [facility] [address] [place] [address], [facility] * (ABNORMAL) Renal Function Panel w/EGFR (10/08/2024 5:36 AM EDT) Sodium 135 133 - 146 mmol/L 10/08/2024 6:25 AM EDT [facility] Potassium 3.2(L) 3.5 - 5.3 mmol/L 10/08/2024 6:25 AM EDT [facility] Chloride 106 98 - 110 mmol/L 10/08/2024 6:25 AM EDT [facility] CO2 17(L) 21 - 33 mmol/L 10/08/2024 6:25 AM EDT [facility] Anion Gap 12 3 - 16 mmol/L 10/08/2024 6:25 AM EDT [facility] BUN 61(H) 7 - 25 mg/dL 10/08/2024 6:25 AM EDT [facility] Creatinine 3.10(H) 0.60 - 1.30 mg/dL 10/08/2024 6:25 AM EDT [facility] Glucose 106(H) 70 - 100 mg/dL 10/08/2024 6:25 AM EDT [facility] Calcium 9.0 8.6 - 10.3 mg/dL 10/08/2024 6:25 AM EDT [facility] Phosphorus 4.0 2.1 - 4.7 mg/dL 10/08/2024 6:25 AM EDT [facility] Albumin 3.5 3.5 - 5.7 g/dL 10/08/2024 6:25 AM EDT [facility] Osmolality, Calculated 298 278 - 305 mOsm/kg 10/08/2024 6:25 AM EDT [facility] EGFR 25 10/08/2024 6:25 AM EDT [facility] Comment:As [...] be reported as >90mL/min/1.73m2. Reference: Luis Eduardo Cohn Talia M, Olivia DC, Emerita ND, Madelyn CA, Felicia LA, et al. A Unifying Approach for GFR Estimation: Recommendations of the NKF-ASN Task Force on Reassessing the inclusion of Race in Diagnosing Kidney Disease. Am J Kidney Dis. 2020. Plasma 10/08/2024 5:36 AM EDT 10/08/2024 5:52 AM EDT us Eileen Schroeder MD, PhD LAB BLOOD ORDERABLES Final Result [facility] [address] [place] [address], [facility] * (ABNORMAL) CBC (10/08/2024 5:36 AM EDT) WBC 3.2(L) 3.8 - 10.8 10E3/uL 10/08/2024 6:41 AM EDT [facility] RBC 1.86(L) 4.20 - 5.80 10E6/uL 10/08/2024 6:41 AM EDT [facility] Hemoglobin 6.9(L) 13.2 - 17.1 g/dL 10/08/2024 6:41 AM EDT [facility] Hematocrit 18.9(L) 38.5 - 50.0 % 10/08/2024 6:41 AM EDT [facility] MCV 101.6(H) 80.0 - 100.0 fL 10/08/2024 6:41 AM EDT [facility] MCH 36.9(H) 27.0 - 33.0 pg 10/08/2024 6:41 AM EDT [facility] MCHC 36.3(H) 32.0 - 36.0 g/dL 10/08/2024 6:41 AM EDT [facility] RDW 17.0(H) 11.0 - 15.0 % 10/08/2024 6:41 AM EDT [facility] Platelets 34(L) 140 - 400 10E3/uL 10/08/2024 6:41 AM EDT [facility] Comment: Specimen checked for clots. None detected. Slide Reviewed for PLT Clumps. None Seen. Platelet Estimate Decreased 10/08/2024 6:41 AM EDT [facility] MPV 8.4 7.5 - 11.5 fL 10/08/2024 6:41 AM EDT [facility] Whole Blood 10/08/2024 5:36 AM EDT 10/08/2024 5:53 AM EDT Narrative [facility] - 10/08/2024 6:41 AM EDT Peripheral blood smear was scanned per review criteria approved by the laboratory medical examiner. us Eileen Schroeder MD, PhD LAB BLOOD ORDERABLES Final Result [facility] [address] [facility]. [address] * Vancomycin, random (10/08/2024 5:36 AM EDT) Vancomycin Random 16.0 ug/mL 10/08/2024 6:20 AM EDT [facility] Comment:Reference range not established for this test. Plasma 10/08/2024 5:36 AM EDT 10/08/2024 5:52 AM EDT us Jodi FreireD LAB BLOOD ORDERABLES Final Result [facility] [address] [facility]. [address] * Urine Drug Confirmation (10/07/2024 10:50 PM EDT) BARBITURATES NOT PRESENT 10/09/2024 1:33 PM EDT [facility] BENZODIAZEPINES PRESENT 1:33 PM EDT [facility] Nordiazepam 3 ng/mL 10/09/2024 1:33 PM EDT [facility] Temazepam 6 ng/mL 10/09/2024 1:33 PM EDT [facility] CANNABINOIDS NOT PRESENT 10/09/2024 1:33 PM EDT [facility] PARKING METER INSTALLER STIMULANTS NOT PRESENT 5 1:33 PM EDT [facility] OPIOID ANALGESICS PRESENT 05/29/2 025 1:33 PM EDT [facility] Oxycodone 300 ng/mL 10/09/2024 1:33 PM EDT [facility] Oxymorphone 32 ng/mL 10/09/2024 1:33 PM EDT [facility] Tramadol >1000 ng/mL 10/09/2024 1:33 PM EDT [facility] OPIOID ANTAGONISTS NOT PRESENT 10/09 1:33 PM EDT [facility] SEDATIVES/MUSCLE RELAXANTS NOT PRESENT 10/09/2024 1:33 PM EDT [facility] TRICYCLIC ANTIDEPRESSANTS NOT PRESENT 10/09/2024 1:33 PM EDT [facility] Urine 10/07/2024 10:5 0 PM EDT 10/08/2024 3:00 AM EDT Gerri Peterson MD URINE ORDERABLES Final Result Performing Organization Address [facility] de Phone Number [facility] [address] [place] [address]. [address] * Giardia Cryptosporidium Antigens (10/07/2024 10:50 PM EDT) Cryptosporidium Ag Negative Negative 2024 7:59 AM EDT [facility] Giardia Ag Negative Negative 10/08/2024 7:59 AM EDT [facility] Comment: Detection of Giardia and Cryptosporidium antigen is more sensitive and specific than microscopy. Because antigens are shed continuously, repeat testing is rarely warranted. Feces 10/07/2024 10:5 0 PM EDT 10/08/2024 1:53 AM EDT Comment:F Bisi Hernandez DO MICROBIOLOGY - GENERAL ORDERABLE S Final Result Performing Organization Address City/[facility] Co de Phone Number [facility] [address] [place] [address]. [address] * (ABNORMAL) Urine Drug Screen Reflex to Confirmation (10/07/2024 10:50 PM EDT) Amphetamine, 500 ng/mL Cutoff Negative Negative 10/08/2024 3:00 AM EDT [facility] Barbiturates UR, 300 ng/mL Cutoff Negative Negative 10/08/2024 3:00 AM EDT [facility] Buprenorphine, 5 ng/mL Cutoff Negative Negative 10/08/2024 3:00 AM EDT [facility] Benzodiazepines UR, 300 ng/mL Cutoff Negative Negative 10/08/2024 3:00 AM EDT [facility] Cocaine UR, 300 ng/mL Cutoff Negative Negative 10/08/2024 3:00 AM EDT [facility] Methadone, UR, 300 ng/mL Cutoff Negative Negative 10/08/2024 3:00 AM EDT [facility] Opiates UR, 300 ng/mL Cutoff Negative Negative 10/08/2024 3:00 AM EDT [facility] Oxycodone, 100 ng/mL Cutoff Presumptive Positive(A) Negative 10/08/2024 3:00 AM EDT [facility] Tricyclic Antidepressants, 300 ng/mL Cutoff Negative Negative 10/08/2024 3:00 AM EDT [facility] Comment:This test has been d eveloped and its performance characteristics determined by [facility] which is certified under the Clinical [...] Cutoff Negative Negative 10/08/2024 3:00 AM EDT [facility] Comment:This is a screening method only and may be associated with false positive and/or false negative results. Results are not definitive without additional confirmatory testing by mass spectrometry. Fentanyl, 2 ng/mL Cutoff Negative Negative 10/08/2024 3:00 AM EDT [facility] Comment:This test has been d eveloped and its performance characteristics determined by [facility] which is certified under the Clinical [...] PM EDT 10/08/2024 2:08 AM EDT Narrative [facility] - 10/08/2024 3:00 AM EDT CONFIRMATION TO FOLLOW us Gerri Peterson MD URINE ORDERABLES Final Result [facility] [address] [place] [address], [facility] * Comprehensive Drug Screen (10/07/2024 10:50 PM EDT) Creatinine, Ur CANCELED mg/dL 10/08/2024 7:09 AM EDT [facility] Comment:The released value 8 7.30 was canceled by YAQUELIN on 10/08/2024 07:09 BARBITURATES CANCELED [facility] Butalbital CANCELED [facility] Phenobarbital CANCELED [facility] Secobarbital CANCELED [facility] BENZODIAZEPINES CANCELED [facility] Alprazolam CANCELED [facility] Clonazepam CANCELED [facility] Diazepam CANCELED [facility] Alpha-Hydroxyalprazo mcknight CANCELED [facility] Lorazepam CANCELED [facility] Midazolam CANCELED [facility] Nordiazepam CANCELED [facility] Oxazepam CANCELED [facility] Temazepam CANCELED [facility] CANNABINOIDS CANCELED [facility] THC-COOH CANCELED [facility] PARKING METER INSTALLER STIMULANTS CANCELED [facility] Cocaine Metabolite(benzoylec gonine) CANCELED [facility] Amphetamine CANCELED [facility] Methamphetamine [facility]ELED [facility] MDA CANCELED [facility] MDEA CANCELED [facility] Phencyclindine (PCP) CANCELED [facility] OPIOID ANALGESICS [facility]CELED [facility] Heroin Metabolite(6-RAMONA) CANCELED [facility] Codeine CANCELED [facility] Morphine CANCELED [facility] Hydrocodone CANCELED [facility] Hydromorphone CANCELED [facility] Oxycodone CANCELED [facility] Oxymorphone CANCELED [facility] Meperidine CANCELED [facility] Normeperidine CANCELED [facility] Methadone CANCELED [facility] Methadone Metabolite (EDDP) CANCELED [facility] Tramadol CANCELED [facility] Fentanyl [facility] Norfentanyl [facility] Sufentanil [facility] OPIOID ANTAGONISTS CANCELED [facility] Buprenorphine [facility]ELED [facility] Norbuprenorphine CANCELED [facility] Naltrexone CANCELED [facility] Naloxone [facility] SEDATIVES/MUSCLE RELAXANTS [facility] Carisoprodol [facility] Meprobamate [facility] TRICYCLIC ANTIDEPRESSANTS CANCELED [facility] Amitriptyline [facility] Clomipramine [facility]oxepin [facility] Imipramine CANCELED [facility] Nortriptyline [facility] Urine Creatinine CANCELED mg/dL [facility] Nitrite CANCELED [facility] Glutaraldehyde CANCELED [facility] pH CANCELED 10/08/2024 7:09 AM EDT [facility] Comment:The released value 5 .6 was canceled by YAQUELIN on 10/08/2024 07:09 Specific [place] CANCELED 10/09/19 7:09 AM EDT [facility] Comment:The released value 1 .009 was canceled by MABLEE on 10/08/2024 07:09 Bleach CANCELED [facility] Pyridinium Chlorochromate [facility] LAB Urine 10/07/2024 10:5 0 PM EDT 10/08/2024 2:07 AM EDT Narrative [facility]ALTH LAB - 10/08/2024 7:09 AM EDT See accn [id number] us Gerri Peterson MD URINE ORDERABLES Edited Result - Final [facility] [address] [facility] [place] [address], [facility] * Ova and Parasite Comprehensive w/ Giardia/Crypto (10/07/2024 10:50 PM EDT) Pathologist [facility] O & P Method: Concentration and Trichrome Stain [facility] Results No Amoeba, Ova, Or Parasites Seen. -- O and P examination of additional specimens is recommended only for symptomatic patients, immunosuppressed patients or those with an appropriate travel history. [facility] Feces FECES / Unknown 10/07/2024 1 0:50 PM EDT 10/08/2024 1:53 AM EDT Comment:F Bisi Hernandez DO MICROBIOLOGY - GENERAL ORDERABLE S Final Result [facility] [address] [facility] * Enteric Pathogen Panel (10/07/2024 10:50 PM EDT) Campylobacter Group (C. ecoli, C. jejuni, C. trino) Not Detected Not Detected 10/08/2024 4:40 AM EDT [facility] Salmonella species Not Detected Not Detected 10/08/2024 4:40 AM EDT [facility] Shigella species Not Detected Not Detected 10/08/2024 4:40 AM EDT [facility] Vibrio Group (Vibrio cholerae, Vibrio parahaemolyticus) Not Detected Not Detected 10/08/2024 4:40 AM EDT [facility] Yersinia enterocolitica Not Detected Not Detected 10/08/2024 4:40 AM EDT [facility] Shiga toxin 1 Not Detected Not Detected 10/08/2024 4:40 AM EDT [facility] Shiga toxin 2 Not Detected Not Detected 10/08/2024 4:40 AM EDT [facility] Norovirus Not Detected Not Detected 10/08/2024 4:40 AM EDT [facility] Rotavirus Not Detected Not Detected 10/08/2024 4:40 AM EDT [facility] Comment: [...] PM EDT 10/08/2024 1:53 AM EDT Comment:F Result [facility] Bisi Hernandez DO BODY FLUIDS AND STOOLS ORDERABLE S Final Result Performing Organization Address [facility] Co de Phone Number [facility] [address] [facility]. [address] * Hepatitis C Antibody (10/07/2024 6:38 PM EDT) HCV Ab Nonreactive Nonreactive 10/07/2024 7:56 PM EDT [facility] Comment:Health Department no tified in accordance with reportable infectious disease guidelines. Serum 10/07/2024 6:38 PM EDT 10/07/2024 6:52 PM EDT Narrative [facility] - 10/07/2024 7:56 PM EDT Antibodies to HCV not detected; does not exclude the possibility of exposure to HCV. Gerri Peterson MD LAB BLOOD ORDERABLES Final Resu lt Performing Organization Address [facility] Co de Phone Number [facility] [address] [place] [facility]. [address] * Hepatitis B Surface Antibody, Quantitati (10/07/2024 6:38 PM EDT) Hep B S Ab Nonreactive Nonreactive 10/07/2024 8:00 PM EDT [facility] HBSAB NUMBER 7.88 0.00 - 7.99 mIU/mL 10/07/2024 8:00 PM EDT [facility] Serum 10/07/2024 6:38 PM EDT 10/07/2024 6:52 PM EDT Narrative [facility] - 10/07/2024 8:00 PM EDT Individual is considered not immune to HBV infection. Gerri Peterson MD LAB BLOOD ORDERABLES Final Resu lt Performing Organization Address City/[facility]/ZIP Co de Phone Number [facility] [address] [facility]. [address] * Hepatitis B surface antigen (10/07/2024 6:38 PM EDT) Hep B Surface Ag Nonreactive Nonreactive 10/07/2024 7:51 PM EDT [facility] Comment:Health Department no tified in accordance with reportable infectious disease guidelines. Serum 10/07/2024 6:38 PM EDT 10/07/2024 6:52 PM EDT [facility] LAB - 10/07/2024 7:51 PM EDT Specimen is considered negative for HBsAg. Gerri Peterson MD LAB BLOOD ORDERABLES Final Resu lt Performing Organization Address City/[facility]/ZIP Co de Phone Number [facility] [address] [place] [address]. [address] * Hepatitis A Antibody Total (10/07/2024 6:38 PM EDT) Anti-HAV Total (IgG + IgM) Nonreactive 10/07/2024 7:[address] [facility] Serum 10/07/2024 6:38 PM EDT 10/07/2024 6:52 PM EDT [facility] LAB - 10/07/2024 7:53 PM EDT HAV antibodies not detected Gerri Peterson MD LAB BLOOD ORDERABLES Final Resu lt [facility] [address] [facility] * Hepatitis A IgM (10/07/2024 6:38 PM EDT) Hep A IgM Nonreactive Nonreactive 10/07/2024 7:[address] [facility] Serum 10/07/2024 6:38 PM EDT 10/07/2024 6:52 PM EDT [facility] LAB - 10/07/2024 7:46 PM EDT IgM anti-HAV not detected. Does not exclude the possibility of exposure to or infection with HAV. Levels of IgM anti-HAV may be below the cut-off in early infection. us Gerri Peterson MD LAB BLOOD ORDERABLES Final Resu lt [facility] [address] [address], [facility] * (ABNORMAL) Lipid Profile (10/07/2024 6:37 PM EDT) Non-HDL Cholesterol, Calculated See Note 0 - 129 mg/dL 10/07/2024 7:42 PM EDT [facility] Comment: Desirable: < 130 mg/dL Above Desirable: 130-159 mg/dL Borderline High: 160-189 mg/dL High: 190-219 mg/dL Very High: > 219 mg/dL Unable to calculate result either because contributing result(s) are outside of reportable range or are not available. Cholesterol, Total <25 0 - 200 mg/dL 10/07/2024 7:42 PM EDT [facility] Triglycerides 30 10 - 149 mg/dL 10/07/2024 7:42 PM EDT [facility] HDL 4(L) 60 - 92 mg/dL 10/07/2024 7:42 PM EDT [facility] Comment: LIPID PROFILE INTERPRETATION CHOLESTEROL,TOTAL(mg/dL) [...] Cholesterol See Note mg/dL 7:42 PM EDT [facility] Comment:Unable to calculate result either because contributing result(s) are outside of reportable range or are not available. Plasma 10/07/2024 6:37 PM EDT 10/07/2024 7:06 PM EDT [facility]ative [facility] LAB - 10/07/2024 7:42 PM EDT LDL cholesterol calculated using the Friedewald equation. us Gerri Peterson MD LAB BLOOD ORDERABLES Final Resu lt [facility] [address] [place], [place] [address] * (ABNORMAL) Alpha 1 Antitrypsin AAT Quant & Mutation (10/07/2024 6:37 PM EDT) A-1 Antitrypsin 99(L) 101 - 187 mg/dL 10/09/2024 4:28 AM EDT [facility] A-1 Antitrypsin Pheno Comment 10/10/2024 4:05 PM EDT [facility] Comment: A1A Phenotype is consistent with a heterozygous phenotype consisting of one M (normal) allele and one allele that cannot be identified at this time. The unknown allele is not consistent with Z (deficient), S (deficient), or F (deficient). MM Phenotype is considered to be normal , producing normal serum levels of [id number] inhibitor and not associated with clinical disease. [...] PM EDT 10/10/2024 4:08 PM EDT Narrative [facility] - 10/10/2024 4:08 PM EDT PERFORMED AT: [facility] [address] [id number] BRAZING MACHINE FEEDER: Bassam Khalil, PhD PHONE: [phone] PERFORMED AT: [facility] [address] [id number] BRAZING MACHINE FEEDER: Mandy Abdul MD PHONE: [phone] us Gerri Peterson MD LAB BLOOD ORDERABLES Final Resu lt [facility] [address] * (ABNORMAL) CMV IgG Antibody (10/07/2024 6:37 PM EDT) CMV IgG Positive(A ) Negative 10/07/2024 8:26 PM EDT [facility] CMV IGG NUM 8.40(H) 0.00 - 0.59 U/mL 10/07/2024 8:26 PM EDT [facility] Serum 10/07/2024 6:37 PM EDT 10/07/2024 6:50 PM EDT us Gerri Peterson MD LAB BLOOD ORDERABLES Final Resu lt [facility] [address] * HIV-1 and HIV-2 Antibodies w Reflex (10/07/2024 6:37 PM EDT) HIV 1+2 AB/AGN Nonreactive Nonreactive 10/07/2024 7:54 PM EDT [facility] Serum 10/07/2024 6:37 PM EDT 10/07/2024 7:06 PM EDT Narrative [facility] - 10/07/2024 7:54 PM EDT \HIVRNR us Gerri Peterson MD LAB BLOOD ORDERABLES Final Resu lt [facility] [address] [facility] * TSH (Thyroid Stimulating Hormone) (10/07/2024 6:37 PM EDT) Pathologist [facility] TSH 0.81 0.45 - 4.12 uIU/mL 10/07/2024 8:17 PM EDT [facility] Serum 10/07/2024 6:37 PM EDT 10/07/2024 6:50 PM EDT Gerri Peterson MD LAB BLOOD ORDERABLES Final Resu lt Performing Organization Address [facility] Co de Phone Number [facility] [address] [facility] * Katie-Watkins virus early antigen antibody, IgG (10/07/2024 6:37 PM EDT) [facility] EBV Early Antigen Ab, IgG <9.0 0.0 - 8.9 U/mL 10/09/2024 2:16 PM EDT [facility] Comment: Negative < 9.0 Equivocal 9.0 - 10.9 Positive >10.9 Serum Frozen 10/07/2024 6:37 PM EDT 10/09/2024 3:07 PM EDT Narrative [facility] - 10/09/2024 3:07 PM EDT PERFORMED AT: [facility] [id number] BRAZING MACHINE FEEDER: Bassam Khalil, PhD PHONE: [phone] Gerri Peterson MD LAB BLOOD ORDERABLES Final Resu lt [facility] [address] * (ABNORMAL) Varicella zoster antibody, IgG (10/07/2024 6:37 PM EDT) [facility] Varicella IgG Positive( A) Negative S/CO 10/07/2024 8:34 PM EDT [facility] Comment:Result indicates the presence of detectable VZV IgG antibodies. A positive result is generally indicative of exposure to the pathogen or administration of specific immunoglobulins, but it is no indication of active infection or stage of disease. This test is not approved for determining vaccine-induced immunity to varicella zoster virus. VZV NUM 6.76(H) 0.00 - 0.99 S/CO 10/07/2024 8:34 PM EDT [facility] Serum 10/07/2024 6:37 PM EDT 10/07/2024 6:50 PM EDT Gerri Peterson MD LAB BLOOD ORDERABLES Final Resu lt Performing Organization Address [facility] Co de Phone Number [facility] [address] [place] [address] * Toxoplasma gondii antibody, IgG (10/07/2024 6:37 PM EDT) Toxoplasma Gondii IgG <3.0 0.0 - 7.1 IU/mL 10/09/2024 7:53 AM EDT [facility] Comment: Negative <7.2 Equivocal 7.2 - 8.7 Positive >8.7 Serum 10/07/2024 6:37 PM EDT 10/09/2024 8:07 AM EDT Narrative [facility] - 10/09/2024 8:07 AM EDT PERFORMED AT: [facility] [id number] BRAZING MACHINE FEEDER: Bassam Khalil, PhD PHONE: [phone] Gerri Peterson MD LAB BLOOD ORDERABLES Final Resu lt Performing Organization Address [facility] Co de Phone Number [address] * Syphilis Screening (Trepia) (10/07/2024 6:37 PM EDT) Treponema Pallidum Negative Negative 10/07/2024 8:27 PM EDT [facility] Comment: No serological evidence of infection with Treponema pallidum (incubating or early primary syphilis cannot be excluded). Serum 10/07/2024 6:37 PM EDT 10/07/2024 6:50 PM EDT Gerri Peterson MD LAB BLOOD ORDERABLES Final Resu lt Performing Organization Address City/[facility] Co de Phone Number [facility] [address] [facility] * Strongyloides Ab (10/07/2024 6:37 PM EDT) Strongyloides Ab Negative Negative 10/11/19 11:51 AM EDT [facility] Serum 10/07/2024 6:37 PM EDT 10/10/2024 12:07 PM EDT Narrative [facility] - 10/10/2024 12:07 PM EDT PERFORMED AT: [address] [id number] BRAZING MACHINE FEEDER: Mandy Abdul MD PHONE: [phone] Gerri Peterson MD LAB BLOOD ORDERABLES Final Resu lt Performing Organization Address [facility] Co de Phone Number [facility] [address] [place] [address] * Phosphatidylethanol Confirmation, B (10/07/2024 6:37 PM EDT) PETH 16:0/18.1 (POPETH) <10 Cutoff: 10 ng/mL 10/10/2024 10:42 AM EDT [facility] Comment: Phosphatidylethanol (PEth) homologues result [...] Cutoff: 10 ng/mL 10/10/2024 10:42 AM EDT [facility] Comment: PEth 16:0/18:2 (PLPEth) Reference ranges are not well established PEth Interpretation Negative. 10/10 10:42 AM EDT [facility] Comment: ADDITIONAL INFORMATION This report is intended for use in clinical monitoring and management of patients. It is not intended for use in employment-related testing. This test was developed and its performance characteristics determined by [facility] in a manner consistent with CLIA requirements. This test has not been cleared or approved by the U.S. Food and Drug Administration. Test Performed by: [facility] [place] [address] Bar Catcher: Kathy Ortiz Ph.D.; CLIA# [id number] Whole Blood 10/07/2024 6:37 PM EDT 10/10/2024 10:42 AM EDT us Gerri Peterson MD LAB BLOOD ORDERABLES Final Resu lt [facility] [address] [facility] [place] [address], [facility] * (ABNORMAL) MMR(IgG) Panel (Measles, Mumps, Rubella) (10/07/2024 6:37 PM EDT) Mumps IgG Positive 10/07/2024 8:26 PM EDT [facility] MUMPS IGG NUM 77.80(H) 0.0 - 8.9 U/mL 10/07/2024 8:26 PM EDT [facility] Rubella IgG Scr Positive 10/07/2024 8:28 PM EDT [facility] RUB NUM 3.04(H) 0.00 - 0.89 INDEX 10/07/2024 8:28 PM EDT [facility] Rubeola Ab, IgG Positive 10/07/2024 8:26 PM EDT [facility] RUB IGG NUM 192.00(H) 0.00 - 13.40 U/mL 10/07/2024 8:26 PM EDT [facility] Serum 10/07/2024 6:37 PM EDT 10/07/2024 6:50 PM EDT Narrative [facility] - 10/07/2024 8:28 PM EDT [...] ORDERABLES Final Resu lt Performing Organization Address City/[facility]/ZIP Co de Phone Number [facility] [address] [facility] * IgA (10/07/2024 6:37 PM EDT) IgA 227.0 70.0 - 400.0 mg/dL 10/08/2024 11:07 AM EDT [facility] Comment:Please interpret the se findings in conjunction with clinical findings, protein electrophoresis, and immunotyping/immunofixation results. Serum 10/07/2024 6:37 PM EDT 10/07/2024 6:50 PM EDT Gerri Peterson MD LAB BLOOD ORDERABLES Final Resu lt [facility] [address] [facility] * Ethanol, Serum (10/07/2024 6:37 PM EDT) Ethanol <10 0 - 10 mg/dL 10/07/2024 8:36 PM EDT [facility] Serum 10/07/2024 6:37 PM EDT 10/07/2024 6:50 PM EDT Result [facility] Gerri Peterson MD LAB BLOOD ORDERABLES Final Resu lt Performing Organization Address [facility] Co de Phone Number [facility] [address] * ABO/Rh - Second (10/07/2024 6:37 PM EDT) ABO Grouping O 10/07/2024 7:16 PM EDT [facility] Rh Type Positive 10/07/2024 7:16 PM EDT [facility] Blood 10/07/2024 6:37 PM EDT 10/07/2024 6:56 PM EDT Narrative [facility] - 10/07/2024 7:18 PM EDT This is not a duplicate order. It is required that ABO be drawn twice for LIVER TRANSPLANT Gerri Peterson MD BLOOD BANK TEST ORDERABLES Denisse l Result Performing Organization Address [facility] Co de Phone Number [facility] [address] * ABO/Rh- Initial (10/07/2024 6:37 PM EDT) ABO Grouping O 10/07/2024 7:59 PM EDT [facility] Rh Type Positive 10/07/2024 7:59 PM EDT [facility] Blood 10/07/2024 6:37 PM EDT 10/07/2024 7:25 PM EDT Gerri Peterson MD BLOOD BANK TEST ORDERABLES Denisse l Result Performing Organization Address [facility] Co de Phone Number [facility] [address] * X-ray Mandible minimum 4-views (10/07/2024 [...] EXAM: US ABDOMEN COMPLETE EXAM: US DUPLEX [id number] COMPLETE INDICATION: elevated bilirubin COMPARISON: Ultrasound and [...] EXAM: US ABDOMEN COMPLETE EXAM: US DUPLEX [id number] COMPLETE INDICATION: elevated bilirubin COMPARISON: Ultrasound and [...] at 10/07/2024 4:26 PM EDT us Bisi Mary DO IMG US ORDERABLES Final Result * US Duplex Pth-Otf-Vcwlacj Comp (10/07/2024 3:48 PM EDT) Anatomical Region [...] EXAM: US ABDOMEN COMPLETE EXAM: US DUPLEX [id number] COMPLETE INDICATION: elevated bilirubin COMPARISON: Ultrasound and [...] EXAM: US ABDOMEN COMPLETE EXAM: US DUPLEX [id number] COMPLETE INDICATION: elevated bilirubin COMPARISON: Ultrasound and [...] 4:26 PM EDT us Bisi Hernandez DO [facility] US ORDERABLES Final Result * CARISA Rhythm Strip - Scan (10/07/2024 3:30 PM EDT) us Scanning Uchhim SCAN DOCS - NO RESULTS Final Res ult * (ABNORMAL) Protime-INR (10/07/2024 6:00 AM EDT) Protime 26.9(H) 12.1 - 15.1 seconds 10/07/2024 6:55 AM EDT [facility]ALTH [facility] INR 2.4(H) 0.9 - 1.1 10/07/2024 6:55 AM EDT [facility] Comment: RECOMMENDED THERAPEUTIC RANGES USING INR : Stable oral anticoagulant therapy: 2.0 - 3.0 Mechanical prosthetic heart valve: 2.5 - 3.5 Recurrent acute myocardial infarction: 2.5 - 3.5 Plasma 10/07/2024 6:00 AM EDT 10/07/2024 6:39 AM EDT Eileen Schroeder MD, PhD LAB BLOOD ORDERABLES Final Result Performing Organization Address [facility] Co de Phone Number [facility] [address] * (ABNORMAL) Hepatic Function Panel (10/07/2024 6:00 AM EDT) Total Bilirubin 9.7(H) 0.0 - 1.5 mg/dL 10/07/2024 7:10 AM EDT [facility] Bilirubin, Direct 5.21(H) 0.00 - 0.40 mg/dL 10/07/2024 7:10 AM EDT [facility] AST 39 13 - 39 U/L 10/07/2024 7:10 AM EDT [facility] ALT 18 7 - 52 U/L 10/07/2024 7:10 AM EDT [facility] Alkaline Phosphatase 98 36 - 125 U/L 10/07/2024 7:10 AM EDT [facility] Total Protein 4.8(L) 6.4 - 8.9 g/dL 10/07/2024 7:10 AM EDT [facility] Albumin 3.6 3.5 - 5.7 g/dL 10/07/2024 7:10 AM EDT [facility] Bilirubin, Indirect 4.49(H) 0.00 - 1.10 mg/dL 10/07/2024 7:10 AM EDT [facility] Plasma 10/07/2024 6:00 AM EDT 10/07/2024 6:39 AM EDT us Eileen Schroeder MD, PhD LAB BLOOD ORDERABLES Final Result Performing Organization Address [facility] Co de Phone Number [facility] [address] * Magnesium (10/07/2024 6:00 AM EDT) Magnesium 1.7 1.5 - 2.5 mg/dL 10/07/2024 7:10 AM EDT [facility] Plasma 10/07/2024 6:00 AM EDT 10/07/2024 6:39 AM EDT Eileen Schroeder MD, PhD LAB BLOOD ORDERABLES Final Result [facility] [address] [place] [address], [facility] * (ABNORMAL) Renal Function Panel w/EGFR (10/07/2024 6:00 AM EDT) Sodium 132(L) 133 - 146 mmol/L 10/07/2024 7:10 AM EDT [facility] Potassium 3.9 3.5 - 5.3 mmol/L 10/07/2024 7:10 AM EDT [facility] Chloride 103 98 - 110 mmol/L 10/07/2024 7:10 AM EDT [facility] CO2 19(L) 21 - 33 mmol/L 10/07/2024 7:10 AM EDT [facility] Anion Gap 10 3 - 16 mmol/L 10/07/2024 7:10 AM EDT [facility] BUN 64(H) 7 - 25 mg/dL 10/07/2024 7:10 AM EDT [facility] Creatinine 3.38(H) 0.60 - 1.30 mg/dL 10/07/2024 7:10 AM EDT [facility] Glucose 111(H) 70 - 100 mg/dL 10/07/2024 7:10 AM EDT [facility] Calcium 9.1 8.6 - 10.3 mg/dL 10/07/2024 7:10 AM EDT [facility] Phosphorus 4.2 2.1 - 4.7 mg/dL 10/07/2024 7:10 AM EDT [facility] Albumin 3.6 3.5 - 5.7 g/dL 10/07/2024 7:10 AM EDT [facility] Osmolality, Calculated 293 278 - 305 mOsm/kg 10/07/2024 7:10 AM EDT [facility] EGFR 22 10/07/2024 7:10 AM EDT [facility] Comment:As [...] MD, PhD LAB BLOOD ORDERABLES Final Result [facility] [address] * (ABNORMAL) CBC (10/07/2024 6:00 AM EDT) WBC 3.3(L) 3.8 - 10.8 10E3/uL 10/07/2024 7:55 AM EDT [facility] RBC 2.06(L) 4.20 - 5.80 10E6/uL 10/07/2024 7:55 AM EDT [facility] Hemoglobin 7.4(L) 13.2 - 17.1 g/dL 10/07/2024 7:55 AM EDT [facility] Hematocrit 21.5(L) 38.5 - 50.0 % 10/07/2024 7:55 AM EDT [facility] MCV 104.1(H) 80.0 - 100.0 fL 10/07/2024 7:55 AM EDT [facility] MCH 35.8(H) 27.0 - 33.0 pg 10/07/2024 7:55 AM EDT [facility] MCHC 34.4 32.0 - 36.0 g/dL 10/07/2024 7:55 AM EDT [facility] RDW 17.5(H) 11.0 - 15.0 % 10/07/2024 7:55 AM EDT [facility] Platelets 35(L) 140 - 400 10E3/uL 10/07/2024 7:55 AM EDT [facility] Comment: Specimen checked for clots. None detected. Slide Reviewed for PLT Clumps. None Seen. _Platelet Morphology Normal _Platelets Appear Decreased Platelet Estimate Decreased 10/07/2024 7:55 AM EDT [facility] MPV 8.0 7.5 - 11.5 fL 10/07/2024 7:55 AM EDT [facility] Whole Blood 10/07/2024 6:00 AM EDT 10/07/2024 6:40 AM EDT Narrative [facility] - 10/07/2024 7:55 AM EDT Peripheral blood smear was scanned per review criteria approved by the laboratory medical examiner. us Eileen Schroeder MD, PhD LAB BLOOD ORDERABLES Final Result [facility] [address] * AFP Tumor Marker (10/07/2024 6:00 AM EDT) AFP-Tumor Marker 2.0 0.0 - 9.0 ng/mL 10/07/2024 7:11 AM EDT [facility] Serum 10/07/2024 6:00 AM EDT 10/07/2024 6:39 AM EDT Narrative [facility] - 10/07/2024 7:11 AM EDT The testing method for AFP is a chemiluminescent immunoassay manufactured by [employer] Concentrations of AFP obtained by different assay methods or kits may vary and cannot be used interchangeably. AFP results cannot be interpreted as absolute evidence of the presence or absence of malignant disease. us Shila Rivera MD LAB BLOOD ORDERABLES Final Resul t [facility] [address] * Vancomycin, random (10/07/2024 6:00 AM EDT) Vancomycin Random 21.1 ug/mL 10/07/2024 7:08 AM EDT [facility] Comment:Reference range not established for this test. Plasma 10/07/2024 6:00 AM EDT 10/07/2024 6:39 AM EDT Kiet Gardiner PharmD LAB BLOOD ORDERABLES Final Re sult Performing Organization Address [facility]/ZIP Co de Phone Number [facility] [address] [facility] * Osmolality (10/06/2024 2:50 PM EDT) Osmolality, Measured 304 278 - 305 mOsm/kg 10/06/2024 3:49 PM EDT [facility] Serum 10/06/2024 2:50 PM EDT 10/06/2024 2:56 PM EDT Chari Vanegas MD LAB BLOOD ORDERABLES Final Resul t Performing Organization Address [facility] de Phone Number [facility] [address] [facility] * CT Head WO contrast (10/06/2024 1:56 PM EDT) Anatomical Region Laterality Modality Head Computed Tomogra phy 10/06/2024 1:5 0 PM EDT Impressions 10/06/2024 4:50 PM EDT [...] Chari Vanegas MD URINE ORDERABLES Final Result [facility] [address] [place] [address], [facility] * Potassium, urine, random (10/06/2024 1:25 PM EDT) Potassium Urine Random 50.0 mmol/L 10/06/2024 1:56 PM EDT [facility] Comment:Reference range not established for this test. Urine 10/06/2024 1:25 PM EDT 10/06/2024 1:32 PM EDT us Chari Vanegas MD URINE ORDERABLES Final Result Performing Organization Address [facility] de Phone Number [facility] [address] [place] [address] * Sodium, urine, random (10/06/2024 1:25 PM EDT) Sodium, Ur <10 mmol/L 10/06/2024 1:56 PM EDT [facility] Comment:Reference range not established for this test. Urine 10/06/2024 1:25 PM EDT 10/06/2024 1:32 PM EDT us Chari Vanegas MD URINE ORDERABLES Final Result Performing Organization Address [facility] de Phone Number [facility] [address] * Creatinine, Urine, Random (10/06/2024 1:25 PM EDT) Creatinine, Urine 87.40 mg/dL 10/06/2024 1:56 PM EDT [facility] Comment:Reference range not established for this test. Urine 10/06/2024 1:25 PM EDT 10/06/2024 1:32 PM EDT us Chari Vanegas MD URINE ORDERABLES Final Result Performing Organization Address [facility] Co de Phone Number [facility] [address] * Osmolality, Urine (10/06/2024 1:25 PM EDT) Osmolality, Ur 386 50 - 1,200 mOsm/kg 10/06/2024 1:55 PM EDT [facility] Urine 10/06/2024 1:25 PM EDT 10/06/2024 1:32 PM EDT us Chari Vanegas MD URINE ORDERABLES Final Result [facility] [address] [place] [address], [facility] * Urine Drug Confirmation (10/06/2024 11:51 AM EDT) BARBITURATES NOT PRESENT 10/09/2024 3:23 PM EDT [facility] Comment:Results were recheck ed. BENZODIAZEPINES PRESENT 3:23 PM EDT [facility] Nordiazepam 3 ng/mL 10/09/2024 3:23 PM EDT [facility] Comment:Results were recheck ed. Temazepam 8 ng/mL 10/09/2024 3:23 PM EDT [facility] Comment:Results were recheck ed. CANNABINOIDS NOT PRESENT 10/09/2024 3:23 PM EDT [facility] PARKING METER INSTALLER STIMULANTS NOT PRESENT 3:23 PM EDT [facility] OPIOID ANALGESICS PRESENT 025 3:23 PM EDT [facility] Oxycodone 329 ng/mL 10/09/2024 3:23 PM EDT [facility] Oxymorphone 61 ng/mL 10/09/2024 3:23 PM EDT [facility] Tramadol >1000 ng/mL 10/09/2024 3:23 PM EDT [facility] OPIOID ANTAGONISTS NOT PRESENT 10/09 3:23 PM EDT [facility] SEDATIVES/MUSCLE RELAXANTS NOT PRESENT 10/09/2024 3:23 PM EDT [facility] TRICYCLIC ANTIDEPRESSANTS NOT PRESENT 10/09/2024 3:23 PM EDT [facility] Urine 10/06/2024 11:5 1 AM EDT 10/06/2024 1:13 PM EDT us Bisi Hernandez DO URINE ORDERABLES Final Result [facility] [address] [place], [place] [address] * (ABNORMAL) Urine Drug Screen Reflex to Confirmation (10/06/2024 11:51 AM EDT) Amphetamine, 500 ng/mL Cutoff Negative Negative 10/06/2024 1:13 PM EDT [facility] Barbiturates UR, 300 ng/mL Cutoff Negative Negative 10/06/2024 1:13 PM EDT [facility] Buprenorphine, 5 ng/mL Cutoff Negative Negative 10/06/2024 1:13 PM EDT [facility] Benzodiazepines UR, 300 ng/mL Cutoff Negative Negative 10/06/2024 1:13 PM EDT [facility] Cocaine UR, 300 ng/mL Cutoff Negative Negative 10/06/2024 1:13 PM EDT [facility] Methadone, UR, 300 ng/mL Cutoff Negative Negative 10/06/2024 1:13 PM EDT [facility] Opiates UR, 300 ng/mL Cutoff Negative Negative 10/06/2024 1:13 PM EDT [facility] Oxycodone, 100 ng/mL Cutoff Presumptive Positive(A) Negative 10/06/2024 1:13 PM EDT [facility] Tricyclic Antidepressants, 300 ng/mL Cutoff Negative Negative 10/06/2024 1:13 PM EDT [facility] Comment:This test has been d eveloped and its performance characteristics determined by [facility] which is certified under the Clinical [...] Cutoff Negative Negative 10/06/2024 1:13 PM EDT [facility] Comment:This is a screening method only and may be associated with false positive and/or false negative results. Results are not definitive without additional confirmatory testing by mass spectrometry. Fentanyl, 2 ng/mL Cutoff Negative Negative 10/06/2024 1:13 PM EDT [facility] Comment:This test has been d eveloped and its performance characteristics determined by [facility] which is certified under the Clinical [...] AM EDT 10/06/2024 11:58 AM EDT Narrative [facility] - 10/06/2024 1:13 PM EDT CONFIRMATION TO FOLLOW Bisi Akana maría DO URINE ORDERABLES Final Result Performing Organization Address [facility] Co de Phone Number [facility] [address] * Chloride, urine, random (10/06/2024 11:51 AM EDT) Chloride, Ur <15 mmol/L 10/06/2024 1:13 PM EDT [facility] Comment:Reference range not established for this test. Urine 10/06/2024 11:5 1 AM EDT 10/06/2024 11:57 AM EDT Bisi Hernandez DO URINE ORDERABLES Final Result Performing Organization Address [facility] de Phone Number [facility] [address] [facility]. [address] * Potassium, urine, random (10/06/2024 11:51 AM EDT) Potassium Urine Random 49.0 mmol/L 10/06/2024 1:13 PM EDT [facility] Comment:Reference range not established for this test. Urine 10/06/2024 11:5 1 AM EDT 10/06/2024 11:57 AM EDT Bisi Hernandez DO URINE ORDERABLES Final Result Performing Organization Address [facility] Co de Phone Number [facility] [address] * Sodium, urine, random (10/06/2024 11:51 AM EDT) Sodium, Ur <10 mmol/L 10/06/2024 1:13 PM EDT [facility] Comment:Reference range not established for this test. Urine 10/06/2024 11:5 1 AM EDT 10/06/2024 11:57 AM EDT Bisi Hernandez DO URINE ORDERABLES Final Result [facility] [address] [place] [address], [facility] * Urinalysis w/Rfl to Microscopic (10/06/2024 11:51 AM EDT) Color, UA Yellow Yellow,Straw 10/06/2024 12:25 PM EDT [facility] Clarity, UA Clear Clear 10/06/2024 12:25 PM EDT [facility] Specific [place], UA 1.014 1.005 - 1.035 10/06/2024 12:25 PM EDT [facility] pH, UA 6.0 5.0 - 8.0 10/06/2024 12:25 PM EDT [facility] Protein, UA Negative Negative mg/dL 10/06/2024 12:25 PM EDT [facility] Glucose, UA Negative Negative mg/dL 10/06/2024 12:25 PM EDT [facility] Ketones, UA Negative Negative mg/dL 10/06/2024 12:25 PM EDT [facility] Bilirubin, UA Negative Negative 10/06/2024 12:25 PM EDT [facility] Blood, UA Negative Negative 10/06/2024 12:25 PM EDT [facility] Nitrite, UA Negative Negative 10/06/2024 12:25 PM EDT [facility] Urobilinogen, UA <2.0 0.2 - 1.9 mg/dL 10/06/2024 12:25 PM EDT [facility] Leukocyte Esterase, UA Negative Negative 10/06/2024 12:25 PM EDT [facility] Urine 10/06/2024 11:5 1 AM EDT 10/06/2024 11:57 AM EDT Narrative [facility] - 10/06/2024 12:25 PM EDT Microscopic testing is not performed when the dipstick is negative for blood, leukocyte, protein and nitrite. us Bisijusten Hernandez DO URINE ORDERABLES Final Result Performing Organization Address [facility]/ZIP Co de Phone Number [facility] [address] * Lactic Acid, STAT (10/06/2024 7:38 AM EDT) Lactate 0.9 0.5 - 2.2 mmol/L 10/06/2024 8:05 AM EDT [facility] Plasma 10/06/2024 7:38 AM EDT 10/06/2024 7:42 AM EDT us Chari Vanegas MD LAB BLOOD ORDERABLES Final Resul t Performing Organization Address [facility] Co de Phone Number [facility] [address] * (ABNORMAL) CBC, STAT (10/06/2024 7:37 AM EDT) WBC 5.6 3.8 - 10.8 10E3/uL 10/06/2024 8:22 AM EDT [facility] RBC 2.50(L) 4.20 - 5.80 10E6/uL 10/06/2024 8:22 AM EDT [facility] Hemoglobin 9.0(L) 13.2 - 17.1 g/dL 10/06/2024 8:22 AM EDT [facility] Hematocrit 25.3(L) 38.5 - 50.0 % 10/06/2024 8:22 AM EDT [facility] MCV 101.2(H) 80.0 - 100.0 fL 10/06/2024 8:22 AM EDT [facility] MCH 36.0(H) 27.0 - 33.0 pg 10/06/2024 8:22 AM EDT [facility] MCHC 35.6 32.0 - 36.0 g/dL 10/06/2024 8:22 AM EDT [facility] RDW 17.7(H) 11.0 - 15.0 % 10/06/2024 8:22 AM EDT [facility] Platelets 52(L) 140 - 400 10E3/uL 10/06/2024 8:22 AM EDT [facility] Comment: Specimen checked for clots. None detected. Slide Reviewed for PLT Clumps. None Seen. MPV 8.2 7.5 - 11.5 fL 10/06/2024 8:22 AM EDT [facility] Whole Blood 10/06/2024 7:37 AM EDT 10/06/2024 7:43 AM EDT Chari Vanegas MD LAB BLOOD ORDERABLES Final Resul t [facility] [address] * (ABNORMAL) Comprehensive Metabolic Panel (10/06/2024 7:37 AM EDT) Sodium 129(L) 133 - 146 mmol/L 10/06/2024 8:16 AM EDT [facility] Potassium 4.4 3.5 - 5.3 mmol/L 10/06/2024 8:16 AM EDT [facility] Chloride 100 98 - 110 mmol/L 10/06/2024 8:16 AM EDT [facility] CO2 18(L) 21 - 33 mmol/L 10/06/2024 8:16 AM EDT [facility] Anion Gap 11 3 - 16 mmol/L 10/06/2024 8:16 AM EDT [facility] BUN 62(H) 7 - 25 mg/dL 10/06/2024 8:16 AM EDT [facility] Creatinine 3.40(H) 0.60 - 1.30 mg/dL 10/06/2024 8:16 AM EDT [facility] Glucose 98 70 - 100 mg/dL 10/06/2024 8:16 AM EDT [facility] Calcium 9.5 8.6 - 10.3 mg/dL 10/06/2024 8:16 AM EDT [facility] Total Bilirubin 14.3(H) 0.0 - 1.5 mg/dL 10/06/2024 8:16 AM EDT [facility] AST 57(H) 13 - 39 U/L 10/06/2024 8:16 AM EDT [facility] ALT 29 7 - 52 U/L 10/06/2024 8:16 AM EDT [facility] Alkaline Phosphatase 158(H) 36 - 125 U/L 10/06/2024 8:16 AM EDT [facility] Total Protein 5.6(L) 6.4 - 8.9 g/dL 10/06/2024 8:16 AM EDT [facility] Albumin 3.6 3.5 - 5.7 g/dL 10/06/2024 8:16 AM EDT [facility] Osmolality, Calculated 286 278 - 305 mOsm/kg 10/06/2024 8:16 AM EDT [facility] EGFR 22 10/06/2024 8:16 AM EDT [facility] Comment:As [...] Final Resul t [facility] [address] [place] [address], [facility] * (ABNORMAL) Venous Blood Gas, Line/Syringe, STAT (10/06/2024 7:37 AM EDT) PH-Line Draw 7.27(L) 7.32 - 7.42 10/06/2024 7:46 AM EDT [facility] PCO2-Line Draw 36(L) 41 - 51 mm Hg 10/06/2024 7:46 AM EDT [facility] PO2-Line Draw 44(H) 25 - 40 mm Hg 10/06/2024 7:46 AM EDT [facility] HCO3-Line Draw 17(L) 24 - 28 mmol/L 10/06/2024 7:46 AM EDT [facility] CO2 Content-Line Draw 18(L) 25 - 29 mmol/L 10/06/2024 7:46 AM EDT [facility] Base Excess-Line Draw -9.6(L) -2.0 - 3.0 mmol/L 10/06/2024 7:46 AM EDT [facility] %HBO2-Line Draw 69.8 40.0 - 70.0 % 10/06/2024 7:46 AM EDT [facility] Carboxyhgb-Ludivina e Draw 0.7 % 10/06/2024 7:46 AM EDT [facility] Comment: CARBOXYHEMOGLOBIN (CO) REFERENCE RANGES: Non-Smokers: <2 % Smokers: <8 % TOXIC: >20 % Methemoglobin- Line Draw 0.3 0.0 - 1.5 % 10/06/2024 7:46 AM EDT [facility] Reduced Hemoglobin-Ludivina e Draw 29.2(H) 0.0 - 5.0 % 10/06/2024 7:46 AM EDT [facility] Venous, Line Draw 10/06/2024 7:37 AM EDT 10/06/2024 7:43 AM EDT Chari Vanegas MD LAB BLOOD ORDERABLES Final Resul t [facility] [address] [place] [address], [facility] * (ABNORMAL) Venous Blood Gas, Line/Syringe, STAT (10/06/2024 4:03 AM EDT) PH-Line Draw 7.21(L) 7.32 - 7.42 10/06/2024 4:16 AM EDT [facility] PCO2-Line Draw 41 41 - 51 mm Hg 10/06/2024 4:16 AM EDT [facility] PO2-Line Draw 32 25 - 40 mm Hg 10/06/2024 4:16 AM EDT [facility] HCO3-Line Draw 16(L) 24 - 28 mmol/L 10/06/2024 4:16 AM EDT [facility] CO2 Content-Line Draw 18(L) 25 - 29 mmol/L 10/06/2024 4:16 AM EDT [facility] Base Excess-Line Draw -10.8(L) -2.0 - 3.0 mmol/L 10/06/2024 4:16 AM EDT [facility] %HBO2-Line Draw 47.5 40.0 - 70.0 % 10/06/2024 4:16 AM EDT [facility] Carboxyhgb-Ludivina e Draw 2.0 % 10/06/2024 4:16 AM EDT [facility] Comment: CARBOXYHEMOGLOBIN (CO) REFERENCE RANGES: Non-Smokers: <2 % Smokers: <8 % TOXIC: >20 % Methemoglobin- Line Draw 0.7 0.0 - 1.5 % 10/06/2024 4:16 AM EDT [facility] Reduced Hemoglobin-Ludivina e Draw 49.8(H) 0.0 - 5.0 % 10/06/2024 4:16 AM EDT [facility] Venous, Line Draw 10/06/2024 4:03 AM EDT 10/06/2024 4:12 AM EDT us Bisi Hernandez DO LAB BLOOD ORDERABLES Final Resul t [facility] [address] [place] [address], [facility] * (ABNORMAL) Protime-INR (10/06/2024 4:01 AM EDT) Protime 21.3(H) 12.1 - 15.1 seconds 10/06/2024 4:40 AM EDT [facility] INR 1.8(H) 0.9 - 1.1 10/06/2024 4:40 AM EDT [facility] Comment: RECOMMENDED THERAPEUTIC RANGES USING INR : Stable oral anticoagulant therapy: 2.0 - 3.0 Mechanical prosthetic heart valve: 2.5 - 3.5 Recurrent acute myocardial infarction: 2.5 - 3.5 Plasma 10/06/2024 4:01 AM EDT 10/06/2024 4:11 AM EDT [facility] BLOOD ORDERABLES Final Resul t Performing Organization Address [facility] Co de Phone Number [facility] [address] [facility] * (ABNORMAL) Hepatic Function Panel, AM (10/06/2024 4:01 AM EDT) Total Bilirubin 14.7(H) 0.0 - 1.5 mg/dL 10/06/2024 4:57 AM EDT [facility] Bilirubin, Direct 7.08(H) 0.00 - 0.40 mg/dL 10/06/2024 4:57 AM EDT [facility] AST 60(H) 13 - 39 U/L 10/06/2024 4:57 AM EDT [facility] ALT 31 7 - 52 U/L 10/06/2024 4:57 AM EDT [facility] Alkaline Phosphatase 162(H) 36 - 125 U/L 10/06/2024 4:57 AM EDT [facility] Total Protein 5.3(L) 6.4 - 8.9 g/dL 10/06/2024 4:57 AM EDT [facility] Albumin 3.4(L) 3.5 - 5.7 g/dL 10/06/2024 4:57 AM EDT [facility] Bilirubin, Indirect 7.62(H) 0.00 - 1.10 mg/dL 10/06/2024 4:57 AM EDT [facility] Plasma 10/06/2024 4:01 AM EDT 10/06/2024 4:22 AM EDT Resource [employer]uru DO LAB BLOOD ORDERABLES Final Resul t [facility] [address] * Magnesium (10/06/2024 4:01 AM EDT) Magnesium 1.8 1.5 - 2.5 mg/dL 10/06/2024 4:57 AM EDT [facility] Plasma 10/06/2024 4:01 AM EDT 10/06/2024 4:22 AM EDT us Bisi Mary DOZIER LAB BLOOD ORDERABLES Final Resul t [facility] [address] * (ABNORMAL) Renal Function Panel w/EGFR (10/06/2024 4:01 AM EDT) Sodium 129(L) 133 - 146 mmol/L 10/06/2024 4:57 AM EDT [facility] Potassium 4.7 3.5 - 5.3 mmol/L 10/06/2024 4:57 AM EDT [facility] Chloride 100 98 - 110 mmol/L 10/06/2024 4:57 AM EDT [facility] CO2 16(L) 21 - 33 mmol/L 10/06/2024 4:57 AM EDT [facility] Anion Gap 13 3 - 16 mmol/L 10/06/2024 4:57 AM EDT [facility] BUN 61(H) 7 - 25 mg/dL 10/06/2024 4:57 AM EDT [facility] Creatinine 3.49(H) 0.60 - 1.30 mg/dL 10/06/2024 4:57 AM EDT [facility] Glucose 104(H) 70 - 100 mg/dL 10/06/2024 4:57 AM EDT [facility] Calcium 9.2 8.6 - 10.3 mg/dL 10/06/2024 4:57 AM EDT [facility] Phosphorus 5.3(H) 2.1 - 4.7 mg/dL 10/06/2024 4:57 AM EDT [facility] Albumin 3.4(L) 3.5 - 5.7 g/dL 10/06/2024 4:57 AM EDT [facility] Osmolality, Calculated 286 278 - 305 mOsm/kg 10/06/2024 4:57 AM EDT [facility] EGFR 22 10/06/2024 4:57 AM EDT [facility] Comment:As [...] DO LAB BLOOD ORDERABLES Final Resul t [facility] [address] [place] [address], [facility] * (ABNORMAL) CBC (10/06/2024 4:01 AM EDT) WBC 7.6 3.8 - 10.8 10E3/uL 10/06/2024 5:16 AM EDT [facility] RBC 2.77(L) 4.20 - 5.80 10E6/uL 10/06/2024 5:16 AM EDT [facility] Hemoglobin 10.1(L) 13.2 - 17.1 g/dL 10/06/2024 5:16 AM EDT [facility] Hematocrit 28.4(L) 38.5 - 50.0 % 10/06/2024 5:16 AM EDT [facility] MCV 102.4(H) 80.0 - 100.0 fL 10/06/2024 5:16 AM EDT [facility] MCH 36.4(H) 27.0 - 33.0 pg 10/06/2024 5:16 AM EDT [facility] MCHC 35.5 32.0 - 36.0 g/dL 10/06/2024 5:16 AM EDT [facility] RDW 18.0(H) 11.0 - 15.0 % 10/06/2024 5:16 AM EDT [facility] Platelets 53(L) 140 - 400 10E3/uL 10/06/2024 5:16 AM EDT [facility] Comment:Specimen checked for clots. None detected. MPV 8.4 7.5 - 11.5 fL 10/06/2024 5:16 AM EDT [facility] Whole Blood 10/06/2024 4:01 AM EDT 10/06/2024 4:11 AM EDT [facility] BLOOD ORDERABLES Final Resul t Performing Organization Address City/[facility] Co de Phone Number [facility] [address] * Hepatitis C Antibody (10/06/2024 4:01 AM EDT) Pathologist [facility] HCV Ab Nonreactive Nonreactive 10/06/2024 5:12 AM EDT [facility] Comment:Health Department no tified in accordance with reportable infectious disease guidelines. Serum 10/06/2024 4:01 AM EDT 10/06/2024 4:11 AM EDT Narrative [facility] - 10/06/2024 5:12 AM EDT Antibodies to HCV not detected; does not exclude the possibility of exposure to HCV. [facility] BLOOD ORDERABLES Final Resul t Performing Organization Address City/[facility] Co de Phone Number [facility] [address] * (ABNORMAL) Hepatitis B Surface Antibody, Quantitati (10/06/2024 4:01 AM EDT) Hep B S Ab Reactive( A) Nonreactive 10/06/2024 5:16 AM EDT [facility] HBSAB NUMBER 11.50(H) 0.00 - 7.99 mIU/mL 10/06/2024 5:[address] [facility] Serum 10/06/2024 4:01 AM EDT 10/06/2024 4:11 AM EDT [facility] - 10/06/2024 5:16 AM EDT Individual is considered immune to HBV infection. [facility] BLOOD ORDERABLES Final Resul t Performing Organization Address City/[facility]/ZIP Co de Phone Number [facility] [address] [place] [address]. [address] * Hepatitis B surface antigen (10/06/2024 4:01 AM EDT) Hep B Surface Ag Nonreactive Nonreactive 10/06/2024 5:07 AM EDT [facility] Comment:Health Department no tified in accordance with reportable infectious disease guidelines. Serum 10/06/2024 4:01 AM EDT 10/06/2024 4:11 AM EDT [facility] - 10/06/2024 5:07 AM EDT Specimen is considered negative for HBsAg. [facility] BLOOD ORDERABLES Final Resul t Performing Organization Address City/[facility]/ZIP Co de Phone Number [facility] [address] [place] [address]. [address] * Hepatitis A Antibody Total (10/06/2024 4:01 AM EDT) Anti-HAV Total (IgG + IgM) Nonreactive 10/06/2024 5:[address] [facility] Serum 10/06/2024 4:01 AM EDT 10/06/2024 4:11 AM EDT [facility] - 10/06/2024 5:08 AM EDT HAV antibodies not detected [facility] BLOOD ORDERABLES Final Resul t Performing Organization Address [facility]/ZIP Co de Phone Number [facility] [address] * Hepatitis A IgM (10/06/2024 4:01 AM EDT) Hep A IgM Nonreactive Nonreactive 10/06/2024 5:02 AM EDT [facility] Serum 10/06/2024 4:01 AM EDT 10/06/2024 4:11 AM EDT [facility]arr[facility] - 10/06/2024 5:02 AM EDT IgM anti-HAV not detected. Does not exclude the possibility of exposure to or infection with HAV. Levels of IgM anti-HAV may be below the cut-off in early infection. [facility] BLOOD ORDERABLES Final Resul t Performing Organization Address [facility] Co de Phone Number [facility] [address] [facility]. [address] * (ABNORMAL) Salicylate Level (10/06/2024 4:01 AM EDT) Pathologist [facility] Salicylate Lvl <3(L) 10 - 30 mg/dL 10/06/2024 4:58 AM EDT [facility] Serum 10/06/2024 4:01 AM EDT 10/06/2024 4:22 AM EDT [facility] BLOOD ORDERABLES Final Resul t Performing Organization Address City/[facility]/ZIP Co de Phone Number [facility] [address] [facility]. [address] * AFP Tumor Marker (10/06/2024 4:01 AM EDT) Pathologist [facility] AFP-Tumor Marker 2.6 0.0 - 9.0 ng/mL 10/06/2024 4:55 AM EDT [facility] Serum 10/06/2024 4:01 AM EDT 10/06/2024 4:22 AM EDT Narrative [facility] - 10/06/2024 4:55 AM EDT The testing method for AFP is a chemiluminescent immunoassay manufactured by [employer] Concentrations of AFP obtained by different assay methods or kits may vary and cannot be used interchangeably. AFP results cannot be interpreted as absolute evidence of the presence or absence of malignant disease. us Bisi Hernandez DO LAB BLOOD ORDERABLES Final Resul t [facility] [address] [facility] [place] [address], [facility] * Upper Respiratory Viral/Bacterial Panel-ASSISTANT PROFESSOR OF COMMUNICATION Only (10/06/2024 3:12 AM EDT) Adenovirus Not Detected Not Detected 10/06/2024 11:38 PM EDT [facility] Coronavirus (229E,HKU1,NL63,OC 43) Not Detected Not Detected 10/06/2024 11:38 PM EDT [facility] SARS-CoV-2 Not Detected Not Detected 10/06/2024 11:38 PM EDT [facility] Human Metapneumovirus Not Detected Not Detected 10/06/2024 11:38 PM EDT [facility] Human Rhinovirus/Enterov irus Not Detected Not Detected 10/06/2024 11:38 PM EDT [facility] Influenza A Not Detected Not Detected 10/06/2024 11:38 PM EDT [facility] Influenza A H1 Not Detected Not Detected 10/06/2024 11:38 PM EDT [facility] Influenza A/H1-2009 Not Detected Not Detected 10/06/2024 11:38 PM EDT [facility] Influenza A H3 Not Detected Not Detected 10/06/2024 11:38 PM EDT [facility] Influenza B Not Detected Not Detected 10/06/2024 11:38 PM EDT [facility] Parainfluenza 1 Not Detected Not Detected 10/06/2024 11:38 PM EDT [facility] Parainfluenza 2 Not Detected Not Detected 10/06/2024 11:38 PM EDT [facility] Parainfluenza 3 Not Detected Not Detected 10/06/2024 11:38 PM EDT [facility] Parainfluenza 4 Not Detected Not Detected 10/06/2024 11:38 PM EDT [facility] Resp. Syncycial Virus A Not Detected Not Detected 10/06/2024 11:38 PM EDT [facility] Resp. Syncycial Virus B Not Detected Not Detected 10/06/2024 11:38 PM EDT [facility] Chlamydia pneumoniae Not Detected Not Detected 10/06/2024 11:38 PM EDT [facility] Mycoplasma pneumoniae Not Detected Not Detected 10/06/2024 11:38 PM EDT [facility] Comment: The Respiratory Viral-Bacterial Panel [...] Test results have been sent to the [facility] in accordance with state requirements. For a fact sheet for healthcare providers, see https://www.fda.gov/media/599057/download. For a fact sheet for patients, see https://www.fda.gov/media/202797/download. Nasopharyngeal Swab NASOPHARYNGEAL SWAB / Unknown 10/06/2024 3:12 AM EDT 10/06/2024 5:41 PM EDT Comment:ASSISTANT PROFESSOR OF COMMUNICATION us Bisi Hernandez DO BODY FLUIDS AND STOOLS ORDERABLE S Final Result [facility] [address] [place] [address], [place] * X-ray Portable Chest (10/06/2024 1:16 AM [...] 2:33 AM EDT us Bisi Hernandez DO IMG DIAGNOSTIC IMAGING ORDERABLE S Final Result * Phosphatidylethanol Confirmation, B (10/06/2024 1:04 AM EDT) PETH 16:0/18.1 (POPETH) <10 Cutoff: 10 ng/mL 10/10/2024 3:11 AM EDT [facility] Comment: Phosphatidylethanol (PEth) homologues result [...] 10/10/2024 3:11 AM EDT [facility] Comment: PEth 16:0/18:2 (PLPEth) Reference ranges are not well established PEth Interpretation Negative. 10/10 3:11 AM EDT [facility] Comment: ADDITIONAL INFORMATION This report is intended for use in clinical monitoring and management of patients. It is not intended for use in employment-related testing. This test was developed and its performance characteristics determined by [facility] in a manner consistent with CLIA requirements. This test has not been cleared or approved by the U.S. Food and Drug Administration. Test Performed by: [place] [address] Bar Catcher: Kathy Ortiz Ph.D.; CLIA# [id number] Whole Blood 10/06/2024 1:04 AM EDT 10/10/2024 3:11 AM EDT us Bisi Hernandez DO LAB BLOOD ORDERABLES Final Resul t [facility] [address] [place], [place] [address] * (ABNORMAL) Acetaminophen Level (10/06/2024 1:04 AM EDT) Acetaminophen Level <10(L) 10 - 30 ug/mL 10/06/2024 2:08 AM EDT [facility] Serum 10/06/2024 1:04 AM EDT 10/06/2024 1:30 AM EDT Bisi Hernandez Brilig LAB BLOOD ORDERABLES Final Resul t [facility] [address] * Ethanol, Serum (10/06/2024 1:04 AM EDT) Ethanol <10 0 - 10 mg/dL 10/06/2024 2:08 AM EDT [facility] Serum 10/06/2024 1:04 AM EDT 10/06/2024 1:30 AM EDT Bisi The Author Hubana maría Brilig LAB BLOOD ORDERABLES Final Resul t Performing Organization Address City/[facility]/ZIP Co de Phone Number [facility] [address] [facility]. [address] * #2 Blood culture-Peripheral site 2 (10/06/2024 1:04 AM EDT) Culture Result No Growth After 5 Days [facility] Blood BLOOD SPECIMEN / Unknown 10/06/2024 1:04 AM EDT 10/06/2024 4:57 AM EDT Narrative [facility] - 10/11/2024 5:05 AM EDT Suboptimal volume of blood received. Interpret results with caution. Bisi Akana maría DOZIER MICROBIOLOGY - GENERAL ORDERABLE S Final Result [facility] [address] [facility]. [address] * #1 Blood culture-Peripheral site 1 (10/06/2024 1:04 AM EDT) Culture Result No Growth After 5 Days [facility] Blood BLOOD SPECIMEN / Unknown 10/06/2024 1:04 AM EDT 10/06/2024 4:57 AM EDT Narrative [facility] - 10/11/2024 5:01 AM EDT Suboptimal volume of blood received. Interpret results with caution. Bisi Hernandez DO MICROBIOLOGY - GENERAL ORDERABLE S Final Result Performing Organization Address City/[facility]/ZIP Co de Phone Number [facility] [address] * Ammonia (10/06/2024 1:04 AM EDT) Ammonia 77 27 - 90 ug/dL 10/06/2024 2:00 AM EDT [facility] Plasma 10/06/2024 1:04 AM EDT 10/06/2024 1:30 AM EDT Fanzy LAB BLOOD ORDERABLES Final Resul t Performing Organization Address [facility] Co de Phone Number [facility] [address] [facility]. [address] * Thyroid Function Blanco (10/06/2024 1:04 AM EDT) TSH 0.84 0.45 - 4.12 uIU/mL 10/06/2024 2:20 AM EDT [facility] Serum 10/06/2024 1:04 AM EDT 10/06/2024 1:39 AM EDT [facility] LAB BLOOD ORDERABLES Final Resul t Performing Organization Address City/[facility] Co de Phone Number [facility] [address] [facility]. [address] * (ABNORMAL) Protime-INR (10/06/2024 1:04 AM EDT) Protime 22.8(H) 12.1 - 15.1 seconds 10/06/2024 1:48 AM EDT [facility] INR 1.9(H) 0.9 - 1.1 10/06/2024 1:48 AM EDT [facility] Comment: RECOMMENDED THERAPEUTIC RANGES USING INR : Stable oral anticoagulant therapy: 2.0 - 3.0 Mechanical prosthetic heart valve: 2.5 - 3.5 Recurrent acute myocardial infarction: 2.5 - 3.5 Plasma 10/06/2024 1:04 AM EDT 10/06/2024 1:30 AM EDT us Resource Guru DO LAB BLOOD ORDERABLES Final Resul t Performing Organization Address City/[facility]/ZIP Co de Phone Number [facility] [address] [facility]. [address] * Lactic Acid, STAT (10/06/2024 1:04 AM EDT) Lactate 1.2 0.5 - 2.2 mmol/L 10/06/2024 1:59 AM EDT [facility] Plasma 10/06/2024 1:04 AM EDT 10/06/2024 1:30 AM EDT us Resource Guru DO LAB BLOOD ORDERABLES Final Resul t Performing Organization Address [facility] de Phone Number [facility] [address] * (ABNORMAL) CBC, STAT (10/06/2024 1:04 AM EDT) WBC 7.9 3.8 - 10.8 10E3/uL 10/06/2024 2:36 AM EDT [facility] RBC 2.76(L) 4.20 - 5.80 10E6/uL 10/06/2024 2:36 AM EDT [facility] Hemoglobin 9.9(L) 13.2 - 17.1 g/dL 10/06/2024 2:36 AM EDT [facility] Hematocrit 28.0(L) 38.5 - 50.0 % 10/06/2024 2:36 AM EDT [facility] MCV 101.5(H) 80.0 - 100.0 fL 10/06/2024 2:36 AM EDT [facility] MCH 35.7(H) 27.0 - 33.0 pg 10/06/2024 2:36 AM EDT [facility] MCHC 35.2 32.0 - 36.0 g/dL 10/06/2024 2:36 AM EDT [facility] RDW 17.9(H) 11.0 - 15.0 % 10/06/2024 2:36 AM EDT [facility] Platelets 58(L) 140 - 400 10E3/uL 10/06/2024 2:36 AM EDT [facility] Comment: Specimen checked for clots. None detected. Slide Reviewed for PLT Clumps. None Seen. MPV 8.2 7.5 - 11.5 fL 10/06/2024 2:36 AM EDT [facility] Whole Blood 10/06/2024 1:04 AM EDT 10/06/2024 1:31 AM EDT us Bisi Hernandez DO LAB BLOOD ORDERABLES Final Resul t [facility] [address] * (ABNORMAL) Comprehensive Metabolic Panel (10/06/2024 1:04 AM EDT) Sodium 127(L) 133 - 146 mmol/L 10/06/2024 2:05 AM EDT [facility] Potassium 4.5 3.5 - 5.3 mmol/L 10/06/2024 2:05 AM EDT [facility] Chloride 99 98 - 110 mmol/L 10/06/2024 2:05 AM EDT [facility] CO2 18(L) 21 - 33 mmol/L 10/06/2024 2:05 AM EDT [facility] Anion Gap 10 3 - 16 mmol/L 10/06/2024 2:05 AM EDT [facility] BUN 59(H) 7 - 25 mg/dL 10/06/2024 2:05 AM EDT [facility] Creatinine 3.54(H) 0.60 - 1.30 mg/dL 10/06/2024 2:05 AM EDT [facility] Glucose 116(H) 70 - 100 mg/dL 10/06/2024 2:05 AM EDT [facility] Calcium 9.0 8.6 - 10.3 mg/dL 10/06/2024 2:05 AM EDT [facility] Total Bilirubin 14.8(H) 0.0 - 1.5 mg/dL 10/06/2024 2:05 AM EDT [facility] AST 61(H) 13 - 39 U/L 10/06/2024 2:05 AM EDT [facility] ALT 33 7 - 52 U/L 10/06/2024 2:05 AM EDT [facility] Alkaline Phosphatase 174(H) 36 - 125 U/L 10/06/2024 2:05 AM EDT [facility] Total Protein 5.2(L) 6.4 - 8.9 g/dL 10/06/2024 2:05 AM EDT [facility] Albumin 3.3(L) 3.5 - 5.7 g/dL 10/06/2024 2:05 AM EDT [facility] Osmolality, Calculated 282 278 - 305 mOsm/kg 10/06/2024 2:05 AM EDT [facility] EGFR 21 10/06/2024 2:05 AM EDT [facility] Comment:As [...] DO LAB BLOOD ORDERABLES Final Resul t [facility] [address] documented in this encounter Visit Diagnoses [...] EDT 12.5 g 100 mL/h r New 10/07/2024 4:45 PM EDT 12.5 g 100 mL/hr New 10/07/2024 4:01 PM EDT 12.5 g 100 [...] PM EDT 12.5 g 100 mL/hr New 10/10/2024 4:51 PM EDT 12.5 g 100 mL/hr New 10/10/2024 4:18 PM EDT 12.5 g 100 [...] Intravenous, Administer over 30 Minutes, Once, On Sun10/09/24 at 1430, For 1 dose, Administer per [...] patient is non-communicative (CPOT 3-5), Starting on [facility] 10/07/24 at 1205 oxyCODONE (ROXICODONE) immediate [...] in sodium chloride 0.9 % 250 mL [id number] 1,000 mg, Intravenous, Administer over 60 Minutes, Once, Contact pharmacy if there is a question/concern of whether vancomycin should be given based on serum drug levels. Use Hloo0Mon Adapter - Mix Thoroughly Before Administration, Indication? Infection-Suspected, Site of diagnosed infections (select all that apply): Abdominal/Pelvic New Bag 10/08/2024 12:59 PM EDT 1,000 mg 250 mL/hr vancomycin (VANCOCIN) 1,500 mg in sodium chloride 0.9 % 250 mL [id number] 1,500 mg, Intravenous, Administer over 90 Minutes, Once, Contact pharmacy if there is a question/concern of whether vancomycin should be given based on serum drug levels. Use Nqin4Yza Adapter - Mix Thoroughly Before Administration, Indication? [...] RN) 0636 (Given - Provider: Chelsy Bush, ЮЛИЯ)1317 (Given - Provider: Anu Wolff RN)202 (Given - Provider: Soco Milton, ЮЛИЯ) 0607 [...] Patient/family refused) 2032 (Not Given - Provider: Sooc Milton RN - Reason: Patient/family refused) methocarbamoL (ROBAXIN) tablet 500 mg 500 mg, Oral, 3 times daily, First dose on Sun10/07/24 at 0900 0820 (Given - Provider: Anu Wolff RN)1335 (Given - Provider: Anu Wolff RN)210 (Given - Provider: Chelsy Bush, ЮЛИЯ) 0833 (Given - Provider: Anu Wolff RN)1317 (Given - Provider: Anu Wolff RN)2022 (Given - Provider: Soco Milton, ЮЛИЯ) 0850 (Given - Provider: Suzette Arciniega, ЮЛИЯ) midodrine (PROAMATINE) tablet 10 mg 10 mg, [...] RN)210 (Given - Provider: Chelsy Bush, ЮЛИЯ) 0833 (Given - Provider: Anu Wolff RN)131 [...] ЮЛИЯ) 0245 (See Alternative - Provider: Soco Milton, ЮЛИЯ)0848 (See Alternative - Provider: Suzette Arciniega RN) [...] Anu Wolff RN)2031 (Given - Provider: Soco Milton, ЮЛИЯ) 0245 (Given - Provider: Soco Milton RN)0848 [...] documented as of this encounter Care Teams Mail List Librarian Relationship Specialty Start Date End Date Enedina Mcguire NP [address] [place] [address] PCP - General Internal Medicine 10/05/24 documented as of this encounter
--- OUTSIDE RECORDS SUMMARY | 2024-10-10 10:36 | XMS_ITS | Encounter Summary ---
Author Organization [facility] Address [facility] [place] [facility] [place] [place] [address] Care Team Providers Care Er Nurse Name Role Phone Enedina Mcguire NP Primary Care Provider [phone] Source Comments This information has been disclosed [...] release of HIV test results or diagnoses. [id number] Health Reason for Visit * Auth/Cert (Routine) Specialty Diagnoses / Procedures Referred By Shane hernadez Referred To Contact General Internal Medicine Diagnoses [facility] [address] [place] [address] Phone: tel: Referral ID Status Reason Start Date Expiration Date Visits Re quested Visits Authorized [id number] 1 1 Encounter Details Date Type Department Care Team (Late st Contact Info) Description 10/10/2024 10:36 AM EDT - 10/10/2024 11:06 AM EDT Surgery [facility] ENDOSCOPY [address] [place] [address] Lino Soto MD [address] [place] [id number] EGD Surgery Details Date/Time Status Location OR Service Patient Class Case Class Case Type Trauma Case? 10/10/2024 10:36 AM Posted ENDOSCOPY E2 Gastroenterology Inpatient EGD/Sm Bowel Panel 1 Procedure LRB Anes Op Region Wound Class Comments EGD N/A MAC (Monitor [facility]) Clean Contaminated Surgeon Surgeon Role Service [...] in the past 12 m [facility], were you homeless or living in a group home (including now)? No 10/06/2024 Yearly Questionnaire Answer [...] Kandy Fuentes - 10/17/2024 10:29 AM EDT [facility] Care Management Discharge Summary Patient [...] post discharge: Not Applicable Kandy BAE RN [phone] * William Blount MD - 10/17/2024 8:50 AM EDT [facility] Inpatient Discharge Summary Patient: Julien Gilbert Age: 39 y.o. CSN: [id number] Date of Admission: 10/05/2024 Date of Discharge: [...] Case IDs Date Procedure Surgeon Location Status [id number] 10/10/24 EGD Lino Soto MD ENDOSCOPY Comp [id number] 10/14/24 Left Heart Cath Irving Matta MD [...] at 10/08/2024 1:12 PM EDT US Duplex Bzi-Uxt-Wklhvjf Comp Final Result IMPRESSION: ABDOMEN 1. Cirrhotic [...] 90 tablet Refills: 0 naloxone 4 mg/actuation Trinity Commonly known as: NARCAN Apply 1 spray [...] Your Medications These medications were sent to [facility] [address] [facility] [address] Hours: Sunday - Sunday: 8:00AM - 6:00PM FLUoxetine 20 MG capsule lactulose 10 gram/15 mL solution loratadine 10 mg tablet methocarbamoL 500 MG tablet midodrine 10 MG tablet naloxone 4 mg/actuation Trinity oxyCODONE 5 MG immediate release tablet Discharge [...] Order Questions: Select Supplement: Boost-1 kcal/ml supplement ([facility] only) As listed above, low [...] AM EDT 10/17/2024 naloxone (NARCAN) 4 mg/actuation Trinity Apply 1 spray in one nostril if [...] - 10/17/2024 10:23 AM EDT [facility] PROGRESS NOTE Name: Julien Gilbert CSN: [id number] Consulted by: Chelsy Lerner MD Reason for [...] Yes Past Week naloxone (NARCAN) 4 mg/actuation Trinity Apply 1 spray in one nostril if [...] nucleated cells, <2000 RBCs 10% Polynuclear, 90% Seward nuc. There were initial reports of gram [...] of chemical dependency treatment as outpatient. - [facility] with no obstructive coronary disease - Psych eval for PTSD With recommendation of sertraline - Given his renal dysfunction, will plan to list for [facility] when he qualifies on 10/22/2024. Labs next week - Plan for d/c today Bobby Sidhu MD Transplant Retail Business Development Manager Please see the body of the [...] remains <30 until October 22. Waiting for [facility] today. ASSESSMENT NADIYA on CKD, [...] Staff. Jeremiah Gamino PGY4 Nephrology. Pager no. [phone] Chief Complaint No chief complaint on file. [...] Hypertension, Other hyperlipidemia (07/26/2024), Renal cell carcinoma ([facility]), Thrombocytopenia ([facility]), and Thyroid disease. he has a past [...] at 10/08/2024 1:12 PM EDT US Duplex Rnq-Fvk-Kabdoab Comp Final Result IMPRESSION: ABDOMEN 1. Cirrhotic [...] no head imaging has been performed at [facility]. -CT Head w/o contrast -Imaging [...] Order Questions: Select Supplement: Boost-1 kcal/ml supplement ([facility] only) Code Status: Full Code Signed: WILLIAM BLOUNT MD 10/16/2024, 2:16 PM Cosigned by Chelsy Lerner MD at 10/16/2024 5:38 PM EDT Associated attestation - Chelsy Lerner MD - 10/16/2024 5:38 PM EDT [facility] Medicine Attending [...] another specialty or practice, other licensed professional (PT/OT/REAL ESTATE REP/RT), or a non-medical community professional: Hepatology, Interventional [...] due to positioning during LHC on 10/14. [place] the worst in CVR, but has improved [...] Kumar, DMITRY - 10/16/2024 1:08 PM EDT [facility] Medical Nutrition Therapy Follow-Up Diet Order/Nutrition Support: Regular diet, Boost TID - Vanilla preference Pertinent Information: This is a 39 year old male history of ETOH cirrhosis d/b HE, ascites with SBP who is admitted for AMS. Precipitant of his HE likely SBP. Diagnostic paracentesis at OSH reportedly showed 61 nucleated cells, <2000 RBCs 10% Polynuclear, 90% Seward nuc. There were initial reports of gram [...] Based on CBW of 119.5 kg Kcals/day: 3447-6733 (18-21 kcals/kg) Protein g/day: 119-143 (1-1.2 g/kg) [...] Kumar RD, LD Clinical Dietitian Contact via [employer] * Jerad Hughes MD - 10/16/2024 11:03 AM EDT [facility] PROGRESS NOTE Name: Julien Gilbert CSN: [id number] Consulted by: Chelsy Lerner MD Reason for [...] nucleated cells, <2000 RBCs 10% Polynuclear, 90% Seward nuc. There were initial reports of gram [...] of chemical dependency treatment as outpatient. - [facility] with no obstructive coronary disease - Psych eval for PTSD With recommendation of sertraline - Given his renal dysfunction, will plan to list for [facility] when he qualifies on 10/22/2024. - Will follow Bobby Sidhu MD Transplant Retail Business Development Manager Please see the body of the [...] remains <30 until October 22. Waiting for [facility] today. ASSESSMENT NADIYA on CKD, [...] COMMENT on 10/08/2024 Iron%- Iron replete PLAN -[facility] yesterday- patient remains at risk of contrast related injury on top of exisiting NADIYA for 24-48 hrs after contrast load. -He is volume overloaded -patient needs to follow up closely with nephrology after discharge Thank you for allowing us to participate in this patient's care. Discussed with Consult Staff. Jeremiah Gamino PGY4 Nephrology. Pager no. [phone] Chief Complaint No chief complaint on file. [...] at 10/08/2024 1:12 PM EDT US Duplex Esw-Dpr-Bwficad Comp Final Result IMPRESSION: ABDOMEN 1. Cirrhotic [...] not tolerate Stress ECHO on 10/09 - [facility] today -Per GI recs, started [...] no head imaging has been performed at [facility]. -CT Head w/o contrast -Imaging [...] Order Questions: Select Supplement: Boost-1 kcal/ml supplement ([facility] only) Code Status: Full Code [...] another specialty or practice, other licensed professional (PT/OT/REAL ESTATE REP/RT), or a non-medical community professional: Hepatology, Interventional [...] due to positioning during LHC on 10/14. [place] the worst in CVR, but has improved [...] - 10/15/2024 10:15 AM EDT [facility] PROGRESS NOTE Name: Julien Gilbert CSN: [id number] Consulted by: Chelsy Lerner MD Reason for [...] nucleated cells, <2000 RBCs 10% Polynuclear, 90% Seward nuc. There were initial reports of gram [...] of chemical dependency treatment as outpatient. - [facility] yesterday with no obstructive coronary disease - Psych eval for PTSD and medical management - Given his renal dysfunction, will plan to list for [facility] when he qualifies on 10/22/2024. - Will follow Bobby Sidhu MD Transplant Retail Business Development Manager Please see the body of the [...] Quan MD - 10/14/2024 2:34 PM EDT [facility] Department of Cardiovascular Health and Diseases [...] remains <30 until October 22. Waiting for [facility] today. ASSESSMENT NADIYA on CKD, last discharge creatinine 2.4 Baseline Creatinine 1.2-1.3, HRS- NADIYA as no response to holding lasix and albumin UA bland Urine lytes <10/< 15/ 50 Holding lasix give [facility] today Renal Function: Recent Labs [...] Staff. Jeremiah Gamino PGY4 Nephrology. Pager no. [phone] Chief Complaint No chief complaint on file. [...] is Acute kidney injury superimposed on CKD ([facility]). No acute events overnight. Pt with chronic [...] at 10/08/2024 1:12 PM EDT US Duplex Jol-Pjy-Hdggsza Comp Final Result IMPRESSION: ABDOMEN 1. Cirrhotic [...] not tolerate Stress ECHO on 10/09 - [facility] today -Per GI recs, started [...] no head imaging has been performed at [facility]. -CT Head w/o contrast -Imaging [...] never required dialysis. Patient is going for [facility] today and will receive contrast, [...] Order Questions: Select Supplement: Boost-1 kcal/ml supplement ([facility] only) Code Status: Full Code [...] another specialty or practice, other licensed professional (PT/OT/REAL ESTATE REP/RT), or a non-medical community professional: Hepatology, Interventional [...] - 10/14/2024 7:42 AM EDT [facility] PROGRESS NOTE Name: Julien Gilbert CSN: [id number] Consulted by: Chelsy Lerner MD Reason for [...] nucleated cells, <2000 RBCs 10% Polynuclear, 90% Seward nuc. There were initial reports of gram [...] eval ongoing. Transplant work up ongoing - [facility] today - Transplant nephrology following [...] - Will follow Bobby Sidhu MD Transplant Retail Business Development Manager Please see the body of the [...] Staff. Jeremiah Gamino PGY4 Nephrology. Pager no. [phone] Chief Complaint No chief complaint on file. [...] - 10/13/2024 12:33 PM EDT [facility] PROGRESS NOTE Name: Julien Gilbert CSN: [id number] Consulted by: Fouzia Rene MD Reason for [...] nucleated cells, <2000 RBCs 10% Polynuclear, 90% Seward nuc. There were initial reports of gram [...] eval ongoing. Transplant work up ongoing - [facility] today - Transplant nephrology following [...] - Will follow Bobby Sidhu MD Transplant Retail Business Development Manager Please see the body of the [...] what will trigger him, like going to [employer] to eat wings. Julien, and Julien's father [...] psychomotor abnormalities Cognition: short term and terminal operations manager memory intact Attitude: cooperative Affect: full range [...] Fabian, RD - 10/13/2024 10:49 AM EDT [facility] Medical Nutrition Therapy Reason(s) for Completion: [...] Order Questions: Select Supplement: Boost-1 kcal/ml supplement ([facility] only) Pertinent Information: Julien Gilbert is a 39 y.o. Male admitted for Acute kidney injury superimposedon CKD ([facility]) Pt noted to have waxing and waning [...] kg) Body mass index is 32.07 kg/m??. [place] Body Weight: 202 lbs (91.8 kg) +/- 10% Weight History: Wt Readings from Last 10 Encounters: 10/10/24 (!) 263 lb 8 oz (119.5 kg) 09/05/24 (!) 262 lb 9.6 oz (119.1 kg) 09/02/24 (!) 258 lb (117 kg) 08/17/24 (!) 242 lb 11.2 oz (110.1 kg) 07/28/24 (!) 245 lb (111.1 kg) Estimated Nutrition Needs: Based on CBW of 119.5 kg Kcals/day: 3342-8510 (18-21 kcals/kg) Protein g/day: 119-143 (1-1-2 g/kg) [...] Dietitian - Solid Organ Transplant Contact via [employer] * Eileen Schroeder MD, PhD - [...] at 10/08/2024 1:12 PM EDT US Duplex Kbh-Ign-Dkkjiuu Comp Final Result IMPRESSION: ABDOMEN 1. Cirrhotic liver morphology. No suspicious hepatic lesion. 2. Moderate volume of ascites. 3. Splenomegaly. LIVER DOPPLER 1. Patent hepatic vasculature with normal directional flow. 2. Recanalized umbilical vein as a sequela of portal hypertension, with multiple venous collateralsbordering the falciform ligament. Findings similar to prior. Report Verified by: Alberto Rodriugez MD at 10/07/2024 4:26 PM EDT US [...] no head imaging has been performed at [facility]. -CT Head w/o contrast -Imaging [...] Order Questions: Select Supplement: Boost-1 kcal/ml supplement ([facility] only) Code Status: Full Code [...] I reviewed the documentation by the medical collection team lead and agree as documented. Any [...] was non-diagnostic due to hypotension. Plan for [facility] today, but now moved to [...] when medically ready. Consider d/c home after [facility] tomorrow. FOUZIA RENE MD Attending Physician Department of Internal Medicine 10/13/2024 Medical Decision Making: // LEVEL 2 MOD One chronic illness with exacerbation, progression, or side effects of treatment Discussed with physician/SAWYER from another specialty or practice, other licensed professional (PT/OT/REAL ESTATE REP/RT), or a non-medical community professional: Nephrology, Hepatology [...] at 10/08/2024 1:12 PM EDT US Duplex Wjd-Oii-Sbkqrrk Comp Final Result IMPRESSION: ABDOMEN 1. Cirrhotic [...] no head imaging has been performed at [facility]. -CT Head w/o contrast -Imaging [...] Order Questions: Select Supplement: Boost-1 kcal/ml supplement ([facility] only) Code Status: Full Code [...] I reviewed the documentation by the medical collection team lead and agree as documented. Any additions or clarifications are listed below. Daily plan was discussed with patient at bedside and questions addressed. Patient ID: Julien Gilbert is a 39 y.o. male currently admitted for Acute kidney injury superimposed on CKD ([facility]) Supplemental History/ ROS: No acute events overnight [...] for Acute kidney injury superimposed on CKD ([facility]) Active Problems: NADIYA (acute kidney injury) on [...] another specialty or practice, other licensed professional (PT/OT/REAL ESTATE REP/RT), or a non-medical community professional: Nephrology, Hepatology [...] tid. cardiac workup pre txp. pLan for [facility] Sunday Liver transplant workup per [...] 706.9 (H) 10/08/2024 No results found for: [id number] , FOLATE Lab Results Component Value Date [...] CRUR No results found for: MICROALBUR , [id number] In addition to the above an extensive [...] 4.6 10/12/2024 Lab Results Component Value Date UETB43P 7.1 (L) 10/08/2024 PLAN Monitor renal panel [...] CATHYF lead installer Div. of Nephrology [facility] E-mail: [email or web address] This note was completely edited, [...] Rene MD Interval hx No issues. Pending [facility]. Assessment: Renal Function: Cr: 2.77 [...] tid. cardiac workup pre txp. pLan for [facility] Sunday 4. Liver transplant workup [...] 706.9 (H) 10/08/2024 No results found for: [id number] , FOLATE Lab Results Component Value Date [...] CRUR No results found for: MICROALBUR , [id number] In addition to the above an extensive [...] 3.5 10/11/2024 Lab Results Component Value Date VFMW51G 7.1 (L) 10/08/2024 PLAN Monitor renal panel [...] FNKF lead installer Div. of Nephrology [facility] E-mail: [email or web address] This note was completely edited, [...] at 10/08/2024 1:12 PM EDT US Duplex Xoe-Uwz-Drczhjz Comp Final Result IMPRESSION: ABDOMEN 1. Cirrhotic [...] from outside facility. Will engage with them daily([phone]. Ask to speak to a tech) about [...] no head imaging has been performed at [facility]. -CT Head w/o contrast -Imaging [...] Order Questions: Select Supplement: Boost-1 kcal/ml supplement ([facility] only) Code Status: Full Code Signed: CHARI VANEGAS MD 10/11/2024, 11:56 AM Cosigned by Fouzia Rene MD at 10/11/2024 3:57 PM EDT Associated attestation - Fouzia eRne MD - 10/11/2024 3:57 PM EDT Internal Medicine Attending Supervision Note - Hospital Day# 6 The patient was seen today on rounds with the medical team. I have personally interviewed and performed the physical exam and medical decision making. I conducted an independent review of labs, procedures and imaging pertinent to today's encounter through the EMR. I reviewed the documentation by the medical collection team lead and agree as documented. Any [...] another specialty or practice, other licensed professional (PT/OT/REAL ESTATE REP/RT), or a non-medical community professional: Nephrology, Hepatology, [...] Strictly monitor urine output No Indication for EVIDENCE SPECIALIST 3. Not a candidate for terlipressin per [...] Ignacio Queen MD Renal Fellow Pager # [phone] Chief Complaint No chief complaint on file. [...] PHOS -- < > 3.5 3.4 3.3 RLQF71T 7.1* -- -- -- -- < > = values in this interval not displayed. Lab Results Component Value Date IRON 81 10/08/2024 TIBC SEE COMMENT 10/08/2024 FERRITIN 706.9 (H) 10/08/2024 No results found for: [id number] , FOLATE Lab Results Component Value Date [...] CRUR No results found for: MICROALBUR , [id number] In addition to the above an extensive [...] 3.3 10/10/2024 Lab Results Component Value Date FBIX97Z 7.1 (L) 10/08/2024 PLAN Continue IV albumin [...] lead installer Div. of Nephrology [employer] E-mail: [email or web address] This note was completely edited, [...] to follow pt while pt is at [facility]. * Jodi Ortiz PharmD - 10/10/2024 10:27 AM EDT Clinical Pharmacy Service: Vancomycin Consult Progress Note Patient has been transitioned off of vancomycin therapy per team notes and orders. Pharmacy will sign-off at this time, please do not hesitate to consult again as needs arise. Thank you for involving pharmacy in the care of this patient. Jodi Ortiz PharmD Clinical Email Production Consultant, Internal Medicine Preferred contact: [employer] Clinical Fdroeje-Wj-Hkch Pager: [phone] October 10, 2024 10:27 AM Laboratory Data [...] 10/07/2024 10:50 PM Giardia Cryptosporidium Antigens Final [id number] 10/07/2024 10:50 PM Ova and Parasite Comprehensive w/ Giardia/Crypto Final [id number] Feces 10/06/2024 1:04 AM #2 Blood culture-Peripheral site 2 Preliminary [id number] Peripheral 10/06/2024 1:04 AM #1 Blood culture-Peripheral site 1 Preliminary [id number] Peripheral Pharmacokinetics Lab Results (Last 7 days) Today 522 Yesterday 10/08 0536 Vanc Rdm 16.4 11.0 16.0 * Gerri Peterson MD - 10/10/2024 10:09 AM EDT [facility] PROGRESS NOTE Name: Julien Gilbert CSN: [id number] Consulted by: Fouzia Rene MD Reason for [...] nucleated cells, <2000 RBCs 10% Polynuclear, 90% Seward nuc. Per OSH reports, ascitic fluid cultures [...] to achieving target HR. -cardiology consult for [facility] on Sunday - Transplant nephrology [...] from the original note were not included. [facility] Clinical Pharmacy Service: Vancomycin Monitoring [...] in sodium chloride 0.9 % 250 mL Tbfq4Ssc (Completed) 1,500 mg Once 10/09/2024 10/09/2024 Admin Instructions: Contact pharmacy if there is a question/concern of whether vancomycin should begiven based on serum drug levels. Use Blbn8Cck Adapter - Mix Thoroughly Before Administration Route: Intravenous vancomycin (VANCOCIN) 1,500 mg in sodium chloride 0.9 % 250 mL Zmyn5Nfs 1,500 mg Once 10/10/2024 10/11/2024 Admin Instructions: Contact pharmacy if there is a question/concern of whether vancomycin should begiven based on serum drug levels. Use Rwip2Abj Adapter - Mix Thoroughly Before Administration Route: [...] in sodium chloride 0.9 % 250 mL Gkvr5Goo 1,500 mg 166.7 mL/hr 10/08/24 1259 New Bag vancomycin (VANCOCIN) 1,000 mg in sodium chloride 0.9 % 250 mL Twsg0Wvn 1,000 mg 250 mL/hr --Objective Data-- Vitals: [...] 53 53 54 Creatinine 2.85 2.89 3.04 [place] body weight: 86.8 kg (191 lb 5.7 oz) Adjusted ideal body weight: 99.9 kg (220 lb 3.5 oz) Estimated CrCl: ~35-45 mL/min --Cultures-- Microbiology Results Date and Time Order Name Sensitivity Status Organisms Specimen ID Source 10/07/2024 10:50 PM Giardia Cryptosporidium Antigens Final [id number] 10/07/2024 10:50 PM Ova and Parasite Comprehensive w/ Giardia/Crypto Final [id number] Feces 10/06/2024 1:04 AM #2 Blood culture-Peripheral site 2 Preliminary [id number] Peripheral 10/06/2024 1:04 AM #1 Blood culture-Peripheral site 1 Preliminary [id number] Peripheral --Vancomycin Concentrations-- Lab Results (Last 7 [...] for the consult. Jodi Ortiz PharmD Clinical Email Production Consultant, Internal Medicine Preferred contact: [employer] Clinical Jvryldm-Ey-Gybo Pager: [phone] October 10, 2024 9:13 AM * Eileen Schroeder MD, PhD - 10/10/2024 8:17 AM EDT Department of Internal Medicine Daily Progress Note Chief Complaint / Reason for Follow-Up Julien Gilbert is a 39 y.o. male on hospital day 5. The principal reason for today's follow up visit is Acute kidney injury superimposed on CKD ([facility]). DREW Pt was very conversational today. A&O [...] at 10/08/2024 1:12 PM EDT US Duplex Kkr-Rcl-Yljfgzd Comp Final Result IMPRESSION: ABDOMEN 1. Cirrhotic [...] from outside facility. Will engage with them daily([phone]. Ask to speak to a tech) about [...] no head imaging has been performed at [facility]. -CT Head w/o contrast -Imaging [...] Order Questions: Select Supplement: Boost-1 kcal/ml supplement ([facility] only) Code Status: Full Code [...] I reviewed the documentation by the medical collection team lead and agree as documented. Any additions or clarifications are listed below. Daily plan was discussed with patient at bedside and questions addressed. Patient ID: Julien Gilbert is a 39 y.o. male currently admitted for Acute kidney injury superimposed on CKD ([facility]) Supplemental History/ ROS: No acute events overnight [...] for Acute kidney injury superimposed on CKD ([facility]) Active Problems: Spontaneous Bacterial Peritonitis ([facility]): Cultures from OSH were reported as growing gram-positive organisms. Today, after secondary review, a rep from OSH lab reports that they do not think the Gram+ organisms were seen. He remains afebrile and vital signs have been stable. - He received 4 days of vancomycin. Will d/c today. - Continue ceftriaxone for full days. [facility]. Anemia: Multiple contributors. S/p 1 unit PRBC. Hemoglobin responded appropriately and remained stable. Will continue to monitor. Metabolic encephalopathy: Mostly resolved. Likely related to combination of hepatic, metabolic, andpossibly infectious insults. - Continue home lactulose and rifaximin Decompensated cirrhosis ([facility]): Appreciate hepatology consult. He has started his [...] IR. NADIYA (acute kidney injury) on CKD ([facility]): Appreciate nephrology consult. Likely due to hepatorenal [...] another specialty or practice, other licensed professional (PT/OT/REAL ESTATE REP/RT), or a non-medical community professional: Nephrology, Hepatology, [...] Strictly monitor urine output No Indication for EVIDENCE SPECIALIST Not a candidate for terlipressin per liver due to HE, liver and kidney failure, on midodrine tid. Considering para today, cardiac workup pre txp Liver transplant workup per GI/ Primary team, considering for SLK, seen by renal transplant team Thank you for allowing us to participate in this patient's care. Discussed with Consult Staff. Ignacio Queen MD Renal Fellow Pager # [phone] Chief Complaint No chief complaint on file. [...] 9.0 9.3 PHOS -- 3.5 3.5 3.4 EUYA38F 7.1* -- -- -- Lab Results Component Value Date IRON 81 10/08/2024 TIBC SEE COMMENT 10/08/2024 FERRITIN 706.9 (H) 10/08/2024 No results found for: GFOANZEO33 , FOLATE Lab Results Component Value Date [...] CRUR No results found for: MICROALBUR , [id number] In addition to the above an extensive [...] 3.4 10/09/2024 Lab Results Component Value Date DETO32Q 7.1 (L) 10/08/2024 PLAN Continue IV albumin [...] PM Colten Huertas MD, KISHOR LIN, CATHYF lead installer Div. of Nephrology [facility] E-mail: [email or web address] This note was completely edited, [...] HEPATOLOGY PROGRESS NOTE Name: Julien Gilbert CSN: [id number] Consulted by: Fouzia Rene MD Reason for [...] nucleated cells, <2000 RBCs 10% Polynuclear, 90% Seward nuc. Fluid cultures reportedly grew gram + [...] from the original note were not included. [facility] Clinical Pharmacy Service: Vancomycin Monitoring [...] in sodium chloride 0.9 % 250 mL Gayf3Mem (Completed) 1,000 mg Once 10/08/2024 10/08/2024 Admin Instructions: Contact pharmacy if there is a question/concern of whether vancomycin should begiven based on serum drug levels. Use Onvl7Rpm Adapter - Mix Thoroughly Before Administration Route: Intravenous vancomycin (VANCOCIN) 1,500 mg in sodium chloride 0.9 % 250 mL Ciaa5Nes 1,500 mg Once 10/09/2024 10/10/2024 Admin Instructions: Contact pharmacy if there is a question/concern of whether vancomycin should begiven based on serum drug levels. Use Rbmr8Pob Adapter - Mix Thoroughly Before Administration Route: [...] in sodium chloride 0.9 % 250 mL Mrld6Gpu 1,000 mg 250 mL/hr 10/06/24 1413 New [...] 10/07/2024 10:50 PM Giardia Cryptosporidium Antigens Final [id number] 10/07/2024 10:50 PM Ova and Parasite Comprehensive w/ Giardia/Crypto Final [id number] Feces 10/06/2024 1:04 AM #2 Blood culture-Peripheral site 2 Preliminary [id number] Peripheral 10/06/2024 1:04 AM #1 Blood culture-Peripheral site 1 Preliminary [id number] Peripheral --Vancomycin Concentrations-- Lab Results (Last 7 [...] for the consult. Jodi Ortiz PharmD Clinical Email Production Consultant, Internal Medicine Preferred contact: [employer] Clinical Wntndzu-Fd-Tmff Pager: [phone] October 09, 2024 8:29 AM * Eileen Schroeder MD, PhD - 10/09/2024 8:00 AM EDT Department of Internal Medicine Daily Progress Note Chief Complaint / Reason for Follow-Up Julien Gilbert is a 39 y.o. male on hospital day 4. The principal reason for today's follow up visit is Acute kidney injury superimposed on CKD ([facility]). DREW and father at bedside Pt fully [...] at 10/08/2024 1:12 PM EDT US Duplex Uha-Bde-Nwkucam Comp Final Result IMPRESSION: ABDOMEN 1. Cirrhotic [...] from outside facility. Will engage with them daily([phone]. Ask to speak to a tech) about [...] no head imaging has been performed at [facility]. -CT Head w/o contrast -Imaging [...] Order Questions: Select Supplement: Boost-1 kcal/ml supplement ([facility] only) Code Status: Full Code [...] I reviewed the documentation by the medical collection team lead and agree as documented. Any additions or clarifications are listed below. Daily plan was discussed with patient at bedside and questions addressed. Patient ID: Julien Gilbert is a 39 y.o. male currently admitted for Acute kidney injury superimposed on CKD ([facility]) Supplemental History/ ROS: No acute events overnight [...] for Acute kidney injury superimposed on CKD ([facility]) Active Problems: Anemia: S/p 1 unit PRBC [...] disease) Anemia SBP (spontaneous bacterial peritonitis) ([facility]) Neck pain with history of cervical spinal [...] another specialty or practice, other licensed professional (PT/OT/REAL ESTATE REP/RT), or a non-medical community professional: Nephrology, Hepatology Labs reviewed (1 pt each): CBC, CMP, INR & other daily labs Review of notes from a different specialty or different practice: Nephrology, Anesthesiology hepatology, * Gerri Peterson MD - 10/08/2024 1:40 PM EDT [facility] HEPATOLOGY PROGRESS NOTE Name: Julien Gilbert CSN: [id number] Consulted by: Fouzia Rene MD Reason for [...] nucleated cells, <2000 RBCs 10% Polynuclear, 90% Seward nuc. Fluid cultures reportedly grew gram + [...] Soto. Recommendations are final following attestation ASKDAX NICHOLAS, MD PGY-5 10/08/2024, 1:40 PM [1] Allergies [...] disease (ESRD) patient in a hospital based, [facility], or home setting. -At [...] I have discussed this plan with the helper coordinator and the liver transplant team. Cosigned [...] from the original note were not included. [facility] Clinical Pharmacy Service: Vancomycin Monitoring [...] in sodium chloride 0.9 % 250 mL Byym9Glx 1,000 mg Once 10/08/2024 10/09/2024 Admin Instructions: Contact pharmacy if there is a question/concern of whether vancomycin should begiven based on serum drug levels. Use Ccqv6Feo Adapter - Mix Thoroughly Before Administration Route: [...] 10/07/2024 10:50 PM Giardia Cryptosporidium Antigens Final [id number] 10/07/2024 10:50 PM Ova and Parasite Comprehensive w/ Giardia/Crypto In process [id number] Feces 10/06/2024 1:04 AM #2 Blood culture-Peripheral site 2 Preliminary [id number] Peripheral 10/06/2024 1:04 AM #1 Blood culture-Peripheral site 1 Preliminary [id number] Peripheral --Vancomycin Concentrations-- Lab Results (Last 7 [...] for the consult. Jodi Ortiz PharmD Clinical Email Production Consultant, Internal Medicine Preferred contact: [employer] Clinical Ovqdrxg-Ac-Blbf Pager: [phone] October 08, 2024 9:13 AM * Eileen [...] FREET4 0.74 09/03/2024 Diagnostic Studies US Duplex Zzf-Aiw-Rwfeblo Comp Final Result IMPRESSION: ABDOMEN 1. Cirrhotic [...] no head imaging has been performed at [facility]. -CT Head w/o contrast -Imaging [...] Order Questions: Select Supplement: Boost-1 kcal/ml supplement ([facility] only) Code Status: Full Code Signed: EILEEN SCHROEDER MD, PhD 10/08/2024, 1:12 PM Cosigned by Fouzia eRne MD at 10/08/2024 6:43 PM EDT Associated [...] I reviewed the documentation by the medical collection team lead and agree as documented. Any [...] tomorrow NADIYA (acute kidney injury) on CKD ([facility]): Appreciate nephrology consult. Likely has hepatorenal syndrome. [...] (CMS-HCC) Acute kidney injury superimposed on CKD ([facility]) Thrombocytopenia ([facility]) Renal mass, left Metabolic acidosis with normal anion gap and bicarbonate losses GERD (gastroesophageal reflux disease) Anemia SBP (spontaneous bacterial peritonitis) ([facility]) Neck pain with history of cervical spinal [...] another specialty or practice, other licensed professional (PT/OT/REAL ESTATE REP/RT), or a non-medical community professional: Nephrology, Hepatology [...] Strictly monitor urine output No Indication for EVIDENCE SPECIALIST Not a candidate for terlipressin per liver due to HE, liver ans kidney failure, on midodrine tid Liver transplant workup per GI/ Primary team, considering for SLK Thank you for allowing us to participate in this patient's care. Discussed with Consult Staff. Ignacio Queen MD Renal Fellow Pager # [phone] Chief Complaint No chief complaint on file. [...] TIBC , FERRITIN No results found for: [id number] , FOLATE Lab Results Component Value Date [...] <15 No results found for: MICROALBUR , [id number] In addition to the above an extensive [...] 4.0 10/08/2024 Lab Results Component Value Date KFPP72W 7.1 (L) 10/08/2024 PLAN Continue IV albumin [...] AM Colten Huertas MD, DELIA, KISHOR, FNKF lead installer Div. of Nephrology [facility] E-mail: [email or web address] This note was completely edited, [...] from the original note were not included. [facility] Clinical Pharmacy Service: Vancomycin Monitoring [...] AM #2 Blood culture-Peripheral site 2 Preliminary [id number] Peripheral 10/06/2024 1:04 AM #1 Blood culture-Peripheral site 1 Preliminary [id number] Peripheral --Vancomycin Concentrations-- Lab Results (Last 7 [...] for the consult. Jodi Ortiz PharmD Clinical Email Production Consultant, Internal Medicine Preferred contact: [employer] Clinical Lpoopck-Kr-Udql Pager: [phone] October 07, 2024 5:01 PM * Yamile [...] HEPATOLOGY PROGRESS NOTE Name: Julien Gilbert CSN: [id number] Consulted by: Fouzia Rene MD Reason for [...] ([facility]) Thyroid disease No past surgical history on [...] nucleated cells, <2000 RBCs 10% Polynuclear, 90% Seward nuc. Fluid cultures reportedly grewgram + rods. [...] in liver selection meeting and clearance by criminal justice social worker. Please order CT cardiac coronary [...] Strictly monitor urine output No Indication for EVIDENCE SPECIALIST Liver transplant workup per GI/ Primary team Thank you for allowing us to participate in this patient's care. Discussed with Consult Staff. Ignacio Queen MD Renal Fellow Pager # [phone] Chief Complaint No chief complaint on file. [...] TIBC , FERRITIN No results found for: [id number] , FOLATE Lab Results Component Value Date [...] <15 No results found for: MICROALBUR , [id number] In addition to the above an extensive [...] PHOS 4.2 10/07/2024 No results found for: UWLO16S PLAN Continue IV albumin Monitor renal panel [...] AM Colten Huertas MD, KISHOR LIN, PETE lead installer Div. of Nephrology [facility] E-mail: [email or web address] * Carmen Bernal, OT - 10/07/2024 11:09 AM EDT Occupational Therapy Initial Assessment and Discharge Name: Julien Gilbert : 1985 Attending Physician: Fouzia Rene MD Admission Diagnosis: AMS Date: 10/07/2024 [facility] Pertinent hospital course: Yes Hospital [...] at 10/06/2024 2:33 AM EDT US Duplex Toy-Zaa-Ebucpcj Comp (Results Pending) US Abdomen Complete (Results [...] no head imaging has been performed at [facility]. -CT Head w/o contrast -Imaging [...] Order Questions: Select Supplement: Boost-1 kcal/ml supplement ([facility] only) Code Status: Full Code [...] I reviewed the documentation by the medical collection team lead and agree as documented. Any [...] home lactulose and rifaximin Spontaneous Bacterial Peritonitis ([facility]): Cultures from OSH are growing gram- positive organisms.He is on vancomycin and ceftriaxone for now. Will follow-up on speciation and sensitivities. For now, he is afebrile and his white counts have trended down and mental status is improving. Decompensated cirrhosis ([facility]): Appreciate hepatology consult. He has started his transplant evaluation as an outpatient. We will follow-up with hepatology to discuss any inpatient testing that may need to be needed. - MELD labs daily - Continue home regimen with ursodiol, rifaximin and lactulose NADIYA (acute kidney injury) ([facility]): Appreciate nephrology consult. Likely has hepatorenal syndrome. [...] kidney disease) stage 4, GFR 15-29 ml/min ([facility]) Metabolic acidosis with normal anion gap and [...] another specialty or practice, other licensed professional (PT/OT/REAL ESTATE REP/RT), or a non-medical community professional: Nephrology, Hepatology Labs reviewed (1 pt each): CMP, CBC Test results reviewed (1 pt each): CXR, Head CT Review of notes from a different specialty or different practice: Nephrology, hepatology Use of parenteral controlled substances * Kiet Gardiner, PharmD - 10/06/2024 1:07 PM EDT Images from the original note were not included. [facility] Clinical Pharmacy Service: Vancomycin Monitoring [...] AM #2 Blood culture-Peripheral site 2 Preliminary [id number] Peripheral 10/06/2024 1:04 AM #1 Blood culture-Peripheral site 1 Preliminary [id number] Peripheral --Vancomycin Concentrations-- Lab Results (Last 7 [...] US Retroperitoneal complete (Results Pending) US Duplex Irw-Yvr-Jbtfodi Comp (Results Pending) CT Head WO contrast [...] PM EDT Hospital Medicine Attending Supervision Note [facility] // [facility] Julien Gilbert was seen 10/06/24 [...] Lerner MD - 10/05/2024 2:42 PM EDT [facility] - [facility] Department of Medicine TRANSFER CALL NOTE Location [facility] ED History of Present Illness Julien [...] nearest ED, with plan to transfer to [facility] if needing admission. In the [...] Studies: Na 129 K 4.2 Cl 101 Hmurhs47 BUN 62 (up from baseline) Cr 3.6 [...] Quan MD - 10/14/2024 1:10 PM EDT [facility] PRE-SEDATION ASSESSMENT, HISTORY & PHYSICAL Date: 10/14/2024 [...] Neuro: AOx3 AUC For Cath Indication(s) for Excel Analyst Visit: Visit Indicators: Suspected CAD 2. Chest Pain Symptom Assessment: Asymptomatic 3. Heart Failure: Yes Class II 4. [facility]SA Clinical Frailty Scale: Mildly Frail Sedation Plan: Moderate Sedation with Local Anesthesia Antibiotic prophylaxis is not indicated. Mani Quan Interventional Refrigerator Tester Pager: [phone] [1] Patient Active Problem List Diagnosis Decompensated cirrhosis ([facility]) Acute kidney injury superimposed on CKD ([facility]) Alcohol use disorder Metabolic encephalopathy Hypertension Other hyperlipidemia Thrombocytopenia ([facility]) Renal mass, left Abdominal pain Hypokalemia CKD (chronic kidney disease) stage 4, GFR 15-29 ml/min ([facility]) Metabolic acidosis with normal anion gap and bicarbonate losses GERD (gastroesophageal reflux disease) Hypothyroidism Itching Anemia BRBPR (bright red blood per rectum) SBP (spontaneous bacterial peritonitis) ([facility]) C Diff Diarrhea C. difficile diarrhea Neck pain with history of cervical spinal surgery Cosigned by Irving Matta MD at 10/16/2024 10:54 AM EDT Associated attestation - Irving Matta MD - 10/16/2024 10:54 AM EDT Agree * Gerri Peterson MD - 10/10/2024 10:05 AM EDT [facility] PRE-SEDATION ASSESSMENT, HISTORY & PHYSICAL Date: 10/10/2024 [...] Patient Active Problem List Diagnosis Decompensated cirrhosis ([facility]) Acute kidney injury superimposed on CKD ([facility]) Alcohol use disorder Metabolic encephalopathy Hypertension Other hyperlipidemia Thrombocytopenia ([facility]) Renal mass, left Abdominal pain Hypokalemia CKD (chronic kidney disease) stage 4, GFR 15-29 ml/min ([facility]) Metabolic acidosis with normal anion gap and bicarbonate losses GERD (gastroesophageal reflux disease) Hypothyroidism Itching Anemia BRBPR (bright red blood per rectum) SBP (spontaneous bacterial peritonitis) ([facility]) C Diff Diarrhea C. difficile diarrhea Neck [...] Resource Strain: Low Risk (07/09/2024) Received from [facility] Overall Financial Resource Strain (CARDIA) Difficulty of [...] Activity: Unknown (07/14/2024) Received from [facility] Exercise Vital Sign Days of Exercise per Week: Patient unable to answer Minutes of Exercise per Session: Not on file Stress: Patient Unable To Answer (07/14/2024) Received from [facility] [place] of Occupational Health - Occupational Stress Questionnaire Feeling of Stress : Patient unable to answer Social Connections: Patient Unable To Answer (07/14/2024) Received from [facility] Social Connection and Isolation Panel [NHANES] Frequency of Communication with Friends and Family: Patient unable to answer Frequency of Social Gatherings with Friends and Family: Patient unable to answer Attends Sabianist Services: Patient unable to answer Active Member [...] values in this interval not displayed. Imaging: @[id number]@ I have personally reviewed the imaging and have noted the following: Large recanalized umbilical vein Perihilar varices Replaced right hepatic artery Splenomegaly Spontaneous splenorenal shunt Large volume ascites, No portal vein thrombosis Assessment/Plan: A 39 y.o. male with ETOH decompensated by ascites, hepatic encephalopathy,bleeding esophageal Varices. Use and allocation of SCD, AUTOMOTIVE SALES EXECUTIVE, DCD and LDLT allografts discussed in detail. [...] surgery (5%). I also explained the terminal operations manager risks of transplantation and immunosuppression including viral infection and cancer both solid organand lymphoma. Kemar Sahni MD, Fellow, Multiorgan Abdominal Transplant Surgery. [facility]. 10/09/2024 3:16 PM [1] Allergies Allergen [...] Ortiz MD - 10/06/2024 12:00 AM EDT [facility] Internal Medicine - History and Physical [...] taken to Radiology overnight for imaging upload. [facility] performed a bedside paracentesis and sent studies for SBP analysis. [facility] if labs have resulted. Review of Systems 14 pt ROS conducted and negative aside from that mentioned in above HPI Past Medical and Social History Lives in [place], [place] at bedside Notes that the patient [...] OSH Repeat labs pending on admission to [facility] Assessment & Plan Julien Gilbert [...] AM EDT Hospital Medicine Attending Supervision Note [facility] // [facility] Julien Gilbert was seen 10/06/24 [...] confusion and lethargy. HE was seen at [facility] ED were CT head unremarkable and RUQ with gallstones, abdominal ascites diagnostic para done and started on empiric CTX. Labs remarkable at OSH for K 4.2 Cl 101 Nocasz22 BUN 62 (up from baseline) Cr 3.6 [...] another specialty or practice, other licensed professional (PT/OT/REAL ESTATE REP/RT), or a non-medical community professional: ed team [...] ANGIE BLANCHARD MD Attending Physician Division of [facility] Medicine Department of Internal Medicine Pager ID: [phone] 6:04 AM, 10/06/2024 documented in this encounter [...] CNP Vascular & Interventional Radiology 10/10/2024,1:55 PM [facility] & [facility]: [phone] * Lino Soto MD - 10/10/2024 12:06 PM EDT EGD Brief Op Note Julien Gilbert 10/05/2024 - 10/10/2024 Pre-op Diagnosis: Alcoholic cirrhosis of liver with ascites (CMS-HCC) [K70.31] Post-op Diagnosis: Portal gastropathy, Medium size, non-bleeding esophageal varices Procedure(s): EGD Surgeon(s): Lino Soto MD Anesthesia: MAC (Monitor Anesthesia Care) Staff: Fellow: Gerri Peterson MD Endoscopy Nurse: Kandice aCstaneda RN Foreign Languages Professor: Diana Kemp Estimated Blood Loss: Minimal Specimens: Drains: There were no complications unless listed below. LINO SOTO MD Date: 10/10/2024 Time: 12:18 PM * iLno Soto MD - 10/10/2024 11:48 AM EDT [id number] Procedure Date: 10/10/2024 11:48 AM Patient Name: Julien Gilbert Date of : 1985 Admit Type: Inpatient Age: 39 Gender: Male Note Status: Finalized Attending MD: Lino Soto MD, [id number] Procedure: Upper GI endoscopy Indications: Gastroesopahgeal variceal [...] verified by the physician, the nurse, the director of creative services and the pilot plant research technician in the pre-procedure area in the [...] to hypotension Procedure Code(s): --- Professional --- 91527, GC, Esophagogastroduodenoscopy, flexible, transoral; diagnostic, including collection of specimen(s) by brushing or washing, when performed (separate procedure) Diagnosis Code(s): --- Professional --- I85.00, Esophageal varices without bleeding K76.6, Portal hypertension K31.89, Other diseases of stomach and duodenum CPT copyright 2022 [employer]. All rights reserved. The codes documented in this report are preliminary and upon disassembler review may be revised to meet current [...] 12:10:16 PM Scope Out: 12:17:[address] [place] [address], [id number] * Gill Le RN - 10/09/2024 4:00 [...] time. 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 Describes significant anxiety that occasionally limits his ability to drive, and stated he has to pipe puller occasionally to collect himself, thought denied [...] sleep. Has not been on [facility] since stopping the cymbalta. [...] mother is and his father resides in [facility]. Patient earned a graduate degree and never served in the . 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 He was raised [place] and denied current engagement in any community [...] or other abnormalities Cognition/Memory: short term and skilled nursing memory intact. Attention and concentration: is not [...] from the original note were not included. [facility] General Cardiology Consult Note Referring Physician: [...] at baseline or with provocation, shows no pfiuy-go-uoqo atrial level shunt. - Pulmonary arteries: Systolic [...] 10/13/24, please keep NPO on 10/12/24 at [place] Risks and benefits of new therapies added and new invasive and non-invasive procedures/diagnostic testing planned discussed with and understood by the patient/family who agree with the above plan. Plan discussed with the attending physician Dr. Blanco. Recommendations are preliminary until this note is co- signed by the attending. Follow up appointments with Cardiology can be scheduled by calling [phone]. Thank you for the opportunity to participate in this patient's care. Please call orpage with any questions. Leonor Garcia MD Refrigerator Tester I have personally seen, examined, reviewed all [...] 0659 10/11/24 0700 - 10/12/24 0659 Shift [id number] 2616-3957 24 Hour Total 1028-5859 8106-4787 2517-1242 24 Hour Total INTAKE P.O. 8896 812 9674 P.O. 6272 393 9565 Boost (mL) - [facility] only 240 240 I.V.(mL/kg) 450(3.8) [...] Comments) Became Manic * Bakari Jaime Maryuri, CUSTOMER SOLUTIONS SUPERVISOR - 10/10/2024 10:07 AM EDT Interventional Radiology [...] Please call with any questions. BAKARI WAHL, CUSTOMER SOLUTIONS SUPERVISOR Vascular & Interventional Radiology 10/10/2024,1:54 PM [facility] & [facility]: [phone]) [1] Social History Tobacco Use Smoking Status [...] EDTAssociated Order(s): IP CONSULT TO INFECTIOUS DISEASES [facility] DEPARTMENT OF INFECTIOUS DISEASE INITIAL NOTE Referring Physician: Fouzia Rene MD Consult Attending: Daria Garcia Patient: Julien Gilbert CSN: [id number] Reason for Consult: CC: Abx management History [...] HE. He was born and raised in [place] . No travel to the [facility], [place]. 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 [...] Resource Strain: Low Risk (07/09/2024) Received from [facility] Overall Financial Resource Strain (CARDIA) Difficulty of [...] Activity: Unknown (07/14/2024) Received from [facility] Exercise Vital Sign Days of Exercise per Week: Patient unable to answer Minutes of Exercise per Session: Not on file Stress: Patient Unable To Answer (07/14/2024) Received from [facility] [place] of Occupational Health - Occupational Stress Questionnaire Feeling of Stress : Patient unable to answer Social Connections: Patient Unable To Answer (07/14/2024) Received from [facility] Social Connection and Isolation Panel [NHANES] Frequency of Communication with Friends and Family: Patient unable to answer Frequency of Social Gatherings with Friends and Family: Patient unable to answer Attends Sabianist Services: Patient unable to answer Active Member [...] 60 tablet, Refills: 0 Comments: [facility] in [place] [address] sodium bicarbonate 650 MG tablet Take 2 [...] Aphasia [R47.01] 10/06/2024 SBP (spontaneous bacterial peritonitis) ([facility]) [K65.2] 09/08/2024 Metabolic acidosis with normal anion gap and bicarbonate losses [E87.20] 09/03/2024 CKD (chronic kidney disease) stage 4, GFR 15-29 ml/min ([facility]) [N18.4] 09/03/2024 GERD (gastroesophageal reflux disease) [K21.9] 09/03/2024 Renal mass, left [N28.89] 08/18/2024 Thrombocytopenia ([facility]) [D69.6] Decompensated cirrhosis ([facility]) [K72.90, K74.60] 07/25/2024 NADIYA (acute kidney injury) ([facility]) [N17.9] 07/25/2024 Resolved Hospital Problems No resolved [...] Signed: Daria Garcia MD 10/08/2024, 9:46 AM [phone] [1] Allergies Allergen Reactions Adhesive Itching and [...] Resource Strain: Low Risk (07/09/2024) Received from [facility] Overall Financial Resource Strain (CARDIA) Difficulty of [...] Activity: Unknown (07/14/2024) Received from [facility] Exercise Vital Sign Days of Exercise per Week: Patient unable to answer Minutes of Exercise per Session: Not on file Stress: Patient Unable To Answer (07/14/2024) Received from [facility] [place] [facility] [employer]ational [facility] - Occupational Stress Questionnaire Feeling of Stress : Patient unable to answer Social Connections: Patient Unable To Answer (07/14/2024) Received from [facility] Social Connection and Isolation Panel [NHANES] Frequency of Communication with Friends and Family: Patient unable to answer Frequency of Social Gatherings with Friends and Family: Patient unable to answer Attends Sabianist Services: Patient unable to answer Active Member [...] is no recent study available for direct [id number]-[id number] comparison. Left Ventricle The left ventricle is [...] 35 mmHgon resting echo from [facility] 07/15/24. No ischemic workup noted. ECG [...] Patient Active Problem List Diagnosis Decompensated cirrhosis ([facility]) NADIYA (acute kidney injury) ([facility]) Alcohol use disorder Metabolic encephalopathy Hypertension Other hyperlipidemia Thrombocytopenia ([facility]) Renal mass, left Abdominal pain Hypokalemia CKD (chronic kidney disease) stage 4, GFR 15-29 ml/min ([facility]) Metabolic acidosis with normal anion gap and bicarbonate losses GERD (gastroesophageal reflux disease) Hypothyroidism Itching Anemia BRBPR (bright red blood per rectum) SBP (spontaneous bacterial peritonitis) ([facility]) C Diff Diarrhea C. difficile diarrhea Aphasia [...] Home Pharmacy: [facility] [address] [place] [address], [address] [place] [address] [facility] Aleisha Monterroso [facility] [id number] Issues related to obtaining medications: Payor Information Medical Insurance Coverage: Payor: [facility] / Plan: [facility] GLOBAL / Product Type: *No Producttype* / Secondary Payor: Functional Assessment Functional Assessment Assessment Information Obtained From:: Patient Current Mental Status: Awake, Oriented to Person, Oriented to Place, Oriented to Time, Oriented to Situation Mental Health History: Yes Behavioral Health Agency Involvement: Yes Behavioral Health Agency Name: Other (Comment) (states he used [facility] for mental health help) Do [...] No Status & Connection to [facility] Services [place] Status & Connection to VA Services Are [...] confusion and lethargy. HE was seen at [facility] ED were CT head unremarkable and RUQ with gallstones, abdominal ascites diagnostic para done and started on empiric CTX. BSN RN Protective Clothing Issuer Neisha Fuentes met with patient at bedside [...] Previously hedid drink alcohol. No history of alf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 Direct 3.86(H) 0.00 - 0.40 mg/dL 10/14/2024 4:45 AM EDT [facility] AST 41(H) 13 - 39 U/L 10/14/2024 4:45 AM EDT [facility] ALT 22 7 - 52 U/L 10/14/2024 4:45 AM EDT [facility] Alkaline Phosphatase 119 36 - 125 U/L 10/14/2024 4:45 AM EDT [facility] Total Protein 4.6(L) 6.4 - 8.9 g/dL 10/14/2024 4:45 AM EDT [facility] Albumin 3.3(L) 3.5 - 5.7 g/dL 10/14/2024 4:45 AM EDT [facility] Bilirubin, Indirect 3.34(H) 0.00 - 1.10 mg/dL 10/14/2024 4:45 AM EDT [facility] Plasma 10/14/2024 2:53 AM EDT 10/14/2024 4:16 AM EDT Eileen Schroeder MD, PhD LAB BLOOD ORDERABLES Final Result [facility] [address] * Magnesium (10/14/2024 2:53 AM EDT) Magnesium 1.9 1.5 - 2.5 mg/dL 10/14/2024 4:45 AM EDT [facility] Plasma 10/14/2024 2:53 AM EDT 10/14/2024 4:16 AM EDT us Eileen Schroeder MD, PhD LAB BLOOD ORDERABLES Final Result Performing Organization Address City/[facility]/ZIP Co de Phone Number [facility] [address] * (ABNORMAL) Renal Function Panel w/EGFR (10/14/2024 2:53 AM EDT) Sodium 136 133 - 146 mmol/L 10/14/2024 4:45 AM EDT [facility] Potassium 3.5 3.5 - 5.3 mmol/L 10/14/2024 4:45 AM EDT [facility] Chloride 107 98 - 110 mmol/L 10/14/2024 4:45 AM EDT [facility] CO2 16(L) 21 - 33 mmol/L 10/14/2024 4:45 AM EDT [facility] Anion Gap 13 3 - 16 mmol/L 10/14/2024 4:45 AM EDT [facility] BUN 55(H) 7 - 25 mg/dL 10/14/2024 4:45 AM EDT [facility] Creatinine 3.01(H) 0.60 - 1.30 mg/dL 10/14/2024 4:45 AM EDT [facility] Glucose 95 70 - 100 mg/dL 10/14/2024 4:45 AM EDT [facility] Calcium 8.5(L) 8.6 - 10.3 mg/dL 10/14/2024 4:45 AM EDT [facility] Phosphorus 4.4 2.1 - 4.7 mg/dL 10/14/2024 4:45 AM EDT [facility] Albumin 3.3(L) 3.5 - 5.7 g/dL 10/14/2024 4:45 AM EDT [facility] Osmolality, Calculated 297 278 - 305 mOsm/kg 10/14/2024 4:45 AM EDT [facility] EGFR 26 10/14/2024 4:45 AM EDT [facility] Comment:As of 2021, the estimated GFR [...] MD, PhD LAB BLOOD ORDERABLES Final Result [facility] [address] [place] [address], [facility] * (ABNORMAL) CBC (10/14/2024 2:53 AM EDT) WBC 5.5 3.8 - 10.8 10E3/uL 10/14/2024 5:00 AM EDT [facility] RBC 2.09(L) 4.20 - 5.80 10E6/uL 10/14/2024 5:00 AM EDT [facility] Hemoglobin 7.6(L) 13.2 - 17.1 g/dL 10/14/2024 5:00 AM EDT [facility] Hematocrit 21.3(L) 38.5 - 50.0 % 10/14/2024 5:00 AM EDT [facility] MCV 101.7(H) 80.0 - 100.0 fL 10/14/2024 5:00 AM EDT [facility] MCH 36.3(H) 27.0 - 33.0 pg 10/14/2024 5:00 AM EDT [facility] MCHC 35.7 32.0 - 36.0 g/dL 10/14/2024 5:00 AM EDT [facility] RDW 17.6(H) 11.0 - 15.0 % 10/14/2024 5:00 AM EDT [facility] Platelets 35(L) 140 - 400 10E3/uL 10/14/2024 5:00 AM EDT [facility] Comment: Specimen checked for clots. None detected. Slide Reviewed for PLT Clumps. None Seen. MPV 8.5 7.5 - 11.5 fL 10/14/2024 5:00 AM EDT [facility] Whole Blood 10/14/2024 2:53 AM EDT 10/14/2024 4:17 AM EDT us Eileen Schroeder MD, PhD LAB BLOOD ORDERABLES Final Result [facility] [address] [id number], [facility] * Cardiac Cath Documents Scan (10/14/2024 [...] mL of GADOBUTROL 1 MMOL/ML INTRAVENOUS SYRINGE ([facility]) administered intravenously COMPARISON: CT 09/03/2024. [...] mL of GADOBUTROL 1 MMOL/ML INTRAVENOUS SYRINGE ([facility])administered intravenously COMPARISON: CT 09/03/2024. Ultrasound [...] (ABNORMAL) Protime-INR (10/13/2024 5:35 AM EDT) Pathologist [facility] [place] Protime 24.4(H) 12.1 - 15.1 seconds 10/13/2024 6:12 AM EDT [facility] INR 2.1(H) 0.9 - 1.1 10/13/2024 6:12 AM EDT [facility] Comment: RECOMMENDED THERAPEUTIC RANGES USING INR : Stable oral anticoagulant therapy: 2.0 - 3.0 Mechanical prosthetic heart valve: 2.5 - 3.5 Recurrent acute myocardial infarction: 2.5 - 3.5 Plasma 10/13/2024 5:35 AM EDT 10/13/2024 5:52 AM EDT Eileen Schroeder MD, PhD LAB BLOOD ORDERABLES Final Result [facility] [address] * (ABNORMAL) Hepatic Function Panel (10/13/2024 5:35 AM EDT) Pathologist [facility] Total Bilirubin 6.5(H) 0.0 - 1.5 mg/dL 10/13/2024 6:30 AM EDT [facility] Bilirubin, Direct 3.53(H) 0.00 - 0.40 mg/dL 10/13/2024 6:30 AM EDT [facility] AST 42(H) 13 - 39 U/L 10/13/2024 6:30 AM EDT [facility] ALT 19 7 - 52 U/L 10/13/2024 6:30 AM EDT [facility] Alkaline Phosphatase 108 36 - 125 U/L 10/13/2024 6:30 AM EDT [facility] Total Protein 4.4(L) 6.4 - 8.9 g/dL 10/13/2024 6:30 AM EDT [facility] Albumin 3.1(L) 3.5 - 5.7 g/dL 10/13/2024 6:30 AM EDT [facility] Bilirubin, Indirect 2.97(H) 0.00 - 1.10 mg/dL 10/13/2024 6:30 AM EDT [facility] Plasma 10/13/2024 5:35 AM EDT 10/13/2024 5:52 AM EDT Eileen Schroeder MD, PhD LAB BLOOD ORDERABLES Final Result Performing Organization Address [facility] Co de Phone Number [facility] [address] * Magnesium (10/13/2024 5:35 AM EDT) Magnesium 2.0 1.5 - 2.5 mg/dL 10/13/2024 6:30 AM EDT [facility] Plasma 10/13/2024 5:35 AM EDT 10/13/2024 5:52 AM EDT Eileen Schroeder MD, PhD LAB BLOOD ORDERABLES Final Result Performing Organization Address [facility] de Phone Number [facility] [address] * (ABNORMAL) Renal Function Panel w/EGFR (10/13/2024 5:35 AM EDT) Sodium 134 133 - 146 mmol/L 10/13/2024 6:30 AM EDT [facility] Potassium 3.7 3.5 - 5.3 mmol/L 10/13/2024 6:30 AM EDT [facility] Chloride 109 98 - 110 mmol/L 10/13/2024 6:30 AM EDT [facility] CO2 14(L) 21 - 33 mmol/L 10/13/2024 6:30 AM EDT [facility] Anion Gap 11 3 - 16 mmol/L 10/13/2024 6:30 AM EDT [facility] BUN 54(H) 7 - 25 mg/dL 10/13/2024 6:30 AM EDT [facility] Creatinine 2.99(H) 0.60 - 1.30 mg/dL 10/13/2024 6:30 AM EDT [facility] Glucose 116(H) 70 - 100 mg/dL 10/13/2024 6:30 AM EDT [facility] Calcium 8.3(L) 8.6 - 10.3 mg/dL 10/13/2024 6:30 AM EDT [facility] Phosphorus 4.5 2.1 - 4.7 mg/dL 10/13/2024 6:30 AM EDT [facility] Albumin 3.1(L) 3.5 - 5.7 g/dL 10/13/2024 6:30 AM EDT [facility] Osmolality, Calculated 294 278 - 305 mOsm/kg 10/13/2024 6:30 AM EDT [facility] EGFR 26 10/13/2024 6:30 AM EDT [facility] Comment:As of 2021, the estimated GFR [...] MD, PhD LAB BLOOD ORDERABLES Final Result [facility] [address] [place] [address], [facility] * (ABNORMAL) CBC (10/13/2024 5:35 AM EDT) WBC 4.7 3.8 - 10.8 10E3/uL 10/13/2024 6:22 AM EDT [facility] RBC 2.06(L) 4.20 - 5.80 10E6/uL 10/13/2024 6:22 AM EDT [facility] Hemoglobin 7.4(L) 13.2 - 17.1 g/dL 10/13/2024 6:22 AM EDT [facility] Hematocrit 21.7(L) 38.5 - 50.0 % 10/13/2024 6:22 AM EDT [facility] MCV 105.4(H) 80.0 - 100.0 fL 10/13/2024 6:22 AM EDT [facility] MCH 35.9(H) 27.0 - 33.0 pg 10/13/2024 6:22 AM EDT [facility] MCHC 34.0 32.0 - 36.0 g/dL 10/13/2024 6:22 AM EDT [facility] RDW 18.5(H) 11.0 - 15.0 % 10/13/2024 6:22 AM EDT [facility] Platelets 35(L) 140 - 400 10E3/uL 10/13/2024 6:22 AM EDT [facility] Comment: CNV Specimen checked for clots. None detected. MPV 8.4 7.5 - 11.5 fL 10/13/2024 6:22 AM EDT [facility] Whole Blood 10/13/2024 5:35 AM EDT 10/13/2024 5:53 AM EDT us Eileen Schroeder MD, PhD LAB BLOOD ORDERABLES Final Result [facility] [address] [place] [address], [facility] * (ABNORMAL) Ammonia (10/13/2024 5:35 AM EDT) Ammonia 203(HH) 27 - 90 ug/dL 10/13/2024 7:16 AM EDT [facility] Comment: HEMOLYSIS EVIDENT. RESULTS MAY BE INFLUENCED. Critical Result [id number] Called to and read back by: KEY MELO RN at: 10/13/2024 07:15:55 by:CASESE Plasma 10/13/2024 5:35 AM EDT 10/13/2024 6:19 AM EDT Ellis Mays DO LAB BLOOD ORDERABLES Final Resul t Performing Organization Address [facility] Co de Phone Number [facility] [address] * CARISA Rhythm Strip - Scan (10/12/2024 10:30 PM EDT) us Scanning Uchhim SCAN DOCS - NO RESULTS Final Res ult * (ABNORMAL) Protime-INR (10/12/2024 5:44 AM EDT) Protime 25.7(H) 12.1 - 15.1 seconds 10/12/2024 6:12 AM EDT [facility] INR 2.3(H) 0.9 - 1.1 10/12/2024 6:12 AM EDT [facility] Comment: RECOMMENDED THERAPEUTIC RANGES USING INR : Stable oral anticoagulant therapy: 2.0 - 3.0 Mechanical prosthetic heart valve: 2.5 - 3.5 Recurrent acute myocardial infarction: 2.5 - 3.5 Plasma 10/12/2024 5:44 AM EDT 10/12/2024 5:58 AM EDT Eileen Schroeder MD, PhD LAB BLOOD ORDERABLES Final Result Performing Organization Address [facility] Co de Phone Number [facility] [address] * (ABNORMAL) Hepatic Function Panel (10/12/2024 5:44 AM EDT) Total Bilirubin 6.5(H) 0.0 - 1.5 mg/dL 10/12/2024 6:29 AM EDT [facility] Bilirubin, Direct 3.64(H) 0.00 - 0.40 mg/dL 10/12/2024 6:29 AM EDT [facility] AST 40(H) 13 - 39 U/L 10/12/2024 6:29 AM EDT [facility] ALT 19 7 - 52 U/L 10/12/2024 6:29 AM EDT [facility] Alkaline Phosphatase 99 36 - 125 U/L 10/12/2024 6:29 AM EDT [facility] Total Protein 4.2(L) 6.4 - 8.9 g/dL 10/12/2024 6:29 AM EDT [facility] Albumin 3.1(L) 3.5 - 5.7 g/dL 10/12/2024 6:29 AM EDT [facility] Bilirubin, Indirect 2.86(H) 0.00 - 1.10 mg/dL 10/12/2024 6:29 AM EDT [facility] Plasma 10/12/2024 5:44 AM EDT 10/12/2024 5:58 AM EDT Eileen Schroeder MD, PhD LAB BLOOD ORDERABLES Final Result Performing Organization Address City/[facility]/ZIP Co de Phone Number [facility] [address] * Magnesium (10/12/2024 5:44 AM EDT) Magnesium 1.9 1.5 - 2.5 mg/dL 10/12/2024 6:29 AM EDT [facility] Plasma 10/12/2024 5:44 AM EDT 10/12/2024 5:58 AM EDT Eileen Schroeder MD, PhD LAB BLOOD ORDERABLES Final Result [facility] [address] * (ABNORMAL) Renal Function Panel w/EGFR (10/12/2024 5:44 AM EDT) Sodium 135 133 - 146 mmol/L 10/12/2024 6:29 AM EDT [facility] Potassium 3.7 3.5 - 5.3 mmol/L 10/12/2024 6:29 AM EDT [facility] Chloride 109 98 - 110 mmol/L 10/12/2024 6:29 AM EDT [facility] CO2 17(L) 21 - 33 mmol/L 10/12/2024 6:29 AM EDT [facility] Anion Gap 9 3 - 16 mmol/L 10/12/2024 6:29 AM EDT [facility] BUN 52(H) 7 - 25 mg/dL 10/12/2024 6:29 AM EDT [facility] Creatinine 2.94(H) 0.60 - 1.30 mg/dL 10/12/2024 6:29 AM EDT [facility] Glucose 121(H) 70 - 100 mg/dL 10/12/2024 6:29 AM EDT [facility] Calcium 8.5(L) 8.6 - 10.3 mg/dL 10/12/2024 6:29 AM EDT [facility] Phosphorus 4.6 2.1 - 4.7 mg/dL 10/12/2024 6:29 AM EDT [facility] Albumin 3.1(L) 3.5 - 5.7 g/dL 10/12/2024 6:29 AM EDT [facility] Osmolality, Calculated 295 278 - 305 mOsm/kg 10/12/2024 6:29 AM EDT [facility] EGFR 27 10/12/2024 6:29 AM [facility] Comment:As of 2021, the [...] MD, PhD LAB BLOOD ORDERABLES Final Result [facility] [address] [place] [address], [facility] * (ABNORMAL) CBC (10/12/2024 5:44 AM EDT) WBC 3.3(L) 3.8 - 10.8 10E3/uL 10/12/2024 7:06 AM EDT [facility] RBC 1.95(L) 4.20 - 5.80 10E6/uL 10/12/2024 7:06 AM EDT [facility] Hemoglobin 7.2(L) 13.2 - 17.1 g/dL 10/12/2024 7:06 AM EDT [facility] Hematocrit 19.7(L) 38.5 - 50.0 % 10/12/2024 7:06 AM EDT [facility] MCV 101.2(H) 80.0 - 100.0 fL 10/12/2024 7:06 AM EDT [facility] MCH 37.0(H) 27.0 - 33.0 pg 10/12/2024 7:06 AM EDT [facility] MCHC 36.5(H) 32.0 - 36.0 g/dL 10/12/2024 7:06 AM EDT [facility] RDW 17.6(H) 11.0 - 15.0 % 10/12/2024 7:06 AM EDT [facility] Platelets 30(L) 140 - 400 10E3/uL 10/12/2024 7:06 AM EDT [facility] Comment: Specimen checked for clots. None detected. Slide Reviewed for PLT Clumps. None Seen. Platelet Estimate Decreased 10/12/2024 7:06 AM EDT [facility] MPV 8.3 7.5 - 11.5 fL 10/12/2024 7:06 AM EDT [facility] Whole Blood 10/12/2024 5:44 AM EDT 10/12/2024 5:58 AM EDT Narrative [facility] - 10/12/2024 7:06 AM EDT Peripheral blood smear was scanned per review criteria approved by the laboratory medical logistics specialist. Eileen Schroeder MD, PhD LAB BLOOD ORDERABLES Final Result Performing Organization Address [facility] Co de Phone Number [facility] [address] * CARISA Rhythm Strip - Scan (10/11/2024 10:04 PM EDT) us Scanning [employer] SCAN DOCS - NO RESULTS Final Res ult * (ABNORMAL) Protime-INR (10/11/2024 3:02 AM EDT) Protime 26.8(H) 12.1 - 15.1 seconds 10/11/2024 3:30 AM EDT [facility] INR 2.4(H) 0.9 - 1.1 10/11/2024 3:30 AM EDT [facility] Comment: RECOMMENDED THERAPEUTIC RANGES USING INR : Stable oral anticoagulant therapy: 2.0 - 3.0 Mechanical prosthetic heart valve: 2.5 - 3.5 Recurrent acute myocardial infarction: 2.5 - 3.5 Plasma 10/11/2024 3:02 AM EDT 10/11/2024 3:08 AM EDT Eileen Schroeder MD, PhD LAB BLOOD ORDERABLES Final Result Performing Organization Address [facility]/ZIP Co de Phone Number [facility] [address] * (ABNORMAL) Hepatic Function Panel (10/11/2024 3:02 AM EDT) Total Bilirubin 7.3(H) 0.0 - 1.5 mg/dL 10/11/2024 3:38 AM EDT [facility] Bilirubin, Direct 3.85(H) 0.00 - 0.40 mg/dL 10/11/2024 3:38 AM EDT [facility] AST 39 13 - 39 U/L 10/11/2024 3:38 AM EDT [facility] ALT 20 7 - 52 U/L 10/11/2024 3:38 AM EDT [facility] Alkaline Phosphatase 88 36 - 125 U/L 10/11/2024 3:38 AM EDT [facility] Total Protein 4.5(L) 6.4 - 8.9 g/dL 10/11/2024 3:38 AM EDT [facility] Albumin 3.3(L) 3.5 - 5.7 g/dL 10/11/2024 3:38 AM EDT [facility] Bilirubin, Indirect 3.45(H) 0.00 - 1.10 mg/dL 10/11/2024 3:38 AM EDT [facility] Plasma 10/11/2024 3:02 AM EDT 10/11/2024 3:08 AM EDT Eileen Schroeder MD, PhD LAB BLOOD ORDERABLES Final Result Performing Organization Address [facility]/ZIP Co de Phone Number [facility] [address] * Magnesium (10/11/2024 3:02 AM EDT) Magnesium 2.0 1.5 - 2.5 mg/dL 10/11/2024 3:38 AM EDT [facility] Plasma 10/11/2024 3:02 AM EDT 10/11/2024 3:08 AM EDT us Eileen Schroeder MD, PhD LAB BLOOD ORDERABLES Final Result Performing Organization Address [facility]/State/ZIP Co de Phone Number [facility] [address] * (ABNORMAL) Renal Function Panel w/EGFR (10/11/2024 3:02 AM EDT) Sodium 134 133 - 146 mmol/L 10/11/2024 3:38 AM EDT [facility] Potassium 3.6 3.5 - 5.3 mmol/L 10/11/2024 3:38 AM EDT [facility] Chloride 108 98 - 110 mmol/L 10/11/2024 3:38 AM EDT [facility] CO2 16(L) 21 - 33 mmol/L 10/11/2024 3:38 AM EDT [facility] Anion Gap 10 3 - 16 mmol/L 10/11/2024 3:38 AM EDT [facility] BUN 49(H) 7 - 25 mg/dL 10/11/2024 3:38 AM EDT [facility] Creatinine 2.77(H) 0.60 - 1.30 mg/dL 10/11/2024 3:38 AM EDT [facility] Glucose 112(H) 70 - 100 mg/dL 10/11/2024 3:38 AM EDT [facility] Calcium 8.9 8.6 - 10.3 mg/dL 10/11/2024 3:38 AM T [facility] Phosphorus 3.5 2.1 - 4.7 mg/dL 10/11/2024 3:38 AM [facility] Albumin 3.3(L) 3.5 - 5.7 g/dL 10/11/2024 3:38 AM [facility] Osmolality, Calculated 292 278 - 305 mOsm/kg 10/11/2024 3:38 AM [facility] EGFR 29 10/11/2024 3:38 AM [facility] Comment:As of 2021, the [...] reported as >90mL/min/1.73m2. Reference: Luis Eduardo C, Taila M, Olivia DC, Emerita ND, Madelyn CA, Felicia LA, et al. A Unifying Approach for GFR Estimation: Recommendations of the NKF-ASN Task Force on Reassessing the inclusion of Race in Diagnosing Kidney Disease. Am J Kidney Dis. 2020. Plasma 10/11/2024 3:02 AM EDT 10/11/2024 3:08 AM EDT us Eileen Schroeder MD, PhD LAB BLOOD ORDERABLES Final Result [facility] [address] [place] [address], [facility] * (ABNORMAL) CBC (10/11/2024 3:02 AM EDT) WBC 4.0 3.8 - 10.8 10E3/uL 10/11/2024 3:55 AM EDT [facility] RBC 2.11(L) 4.20 - 5.80 10E6/uL 10/11/2024 3:55 AM EDT [facility] Hemoglobin 7.7(L) 13.2 - 17.1 g/dL 10/11/2024 3:55 AM EDT [facility] Hematocrit 21.2(L) 38.5 - 50.0 % 10/11/2024 3:55 AM EDT [facility] MCV 100.5(H) 80.0 - 100.0 fL 10/11/2024 3:55 AM EDT [facility] MCH 36.4(H) 27.0 - 33.0 pg 10/11/2024 3:55 AM EDT [facility] MCHC 36.2(H) 32.0 - 36.0 g/dL 10/11/2024 3:55 AM EDT [facility] RDW 17.9(H) 11.0 - 15.0 % 10/11/2024 3:55 AM EDT [facility] Platelets 32(L) 140 - 400 10E3/uL 10/11/2024 3:55 AM EDT [facility] Comment: Specimen checked for clots. None detected. Slide Reviewed for PLT Clumps. None Seen. Platelet Estimate Decreased 10/11/2024 3:55 AM EDT [facility] MPV 8.1 7.5 - 11.5 fL 10/11/2024 3:55 AM EDT [facility] Whole Blood 10/11/2024 3:02 AM EDT 10/11/2024 3:08 AM EDT Narrative [facility] - 10/11/2024 3:55 AM EDT Peripheral blood smear was scanned per review criteria approved by the laboratory medical logistics specialist. us Eileen Schroeder MD, PhD LAB BLOOD ORDERABLES Final Result [facility] [address] * Vancomycin, random (10/11/2024 3:02 AM EDT) Vancomycin Random 13.4 ug/mL 10/11/2024 3:37 AM EDT [facility] Comment:Reference range not established for this test. Plasma 10/11/2024 3:02 AM EDT 10/11/2024 3:08 AM EDT us Jodi Ortiz PharmD LAB BLOOD ORDERABLES Final Result Performing Organization Address [facility] Co de Phone Number [facility] [address] * IR Paracentesis incl imaging guide [...] diagnostic and therapeutic paracentesis. Bakari Wahl CNP, Compressor Mechanic Bus Procedure and Findings: The procedure was performed [...] Using ultrasound guidance, a 10 cm, 5-F [employer] Centesis catheter was placed into the [...] for diagnostic andtherapeutic paracentesis. Bakari Wahl CNP, Compressor Mechanic Bus Procedure and Findings: The procedure was performed [...] Colorless, Pale Yellow 10/10/2024 5:29 PM EDT [facility] Clarity, Fluid Clear 10/10/2024 5:29 PM EDT [facility] Neutrophil %, Fluid 9 % 10/10/2024 5:29 PM EDT [facility] Lymphocytes %, Fluid 13 % 10/10/2024 5:29 PM EDT [facility] Mesothelial %, Fluid 6 % 10/10/2024 5:29 PM EDT [facility] Macrophage %, Fluid 72 % 10/10/2024 5:29 PM EDT [facility] RBC, Fluid 2,662 /uL 10/10/2024 4:41 PM EDT [facility] Total Nucleated Cells, Fluid 89 /uL 10/10/2024 4:41 PM EDT [facility] Comment:Total Nucleated Cell s represent WBCs and other nucleated cells in the fluid such as lining cells. Ascitic Fluid ABDOMEN / Unknown 1:51 PM EDT 10/10/2024 3:56 PM EDT us Gerri Peterson MD BODY FLUIDS AND STOOLS ORDERABL ES Final Result Performing Organization Address City/[facility] Co de Phone Number [facility] [address] [facility]. [address] * Body Fluid Culture plus Stain (10/10/2024 1:51 PM EDT) Gram Stain Result Cytospin Results: [facility] Gram Stain Result Polymorphonuclear Leukocytes Seen; [facility] Gram Stain Result No Organisms Seen; [facility] Culture Result No Growth After 5 Days [facility] Fluid ABDOMEN / Unknown 10/10/2024 1:51 PM EDT 10/10/2024 3:56 PM EDT Gerri Peterson MD MICROBIOLOGY - GENERAL ORDERABL ES Final Result Performing Organization Address [facility] Co de Phone Number [facility] [address] * UPPER GI ENDOSCOPY (10/10/2024 11:48 AM EDT) 10/10/2024 11:4 8 AM EDT Narrative [facility] - 10/10/2024 12:34 PM EDT [id number] Procedure Date: 10/10/2024 11:48 AM Patient Name: Julien Gilbert Date of : 1985 Admit Type: Inpatient Age: 39 Gender: Male Note Status: Finalized Attending MD: Lino Soto MD, [id number] Procedure: Upper GI endoscopy Indications: Gastroesopahgeal variceal [...] verified by the physician, the nurse, the director of creative services and the pilot plant research technician in the pre-procedure area in the [...] to hypotension Procedure Code(s): --- Professional --- 95360, GC, Esophagogastroduodenoscopy, flexible, transoral; diagnostic, including collection of specimen(s) by brushing or washing, when performed (separate procedure) Diagnosis Code(s): --- Professional --- I85.00, Esophageal varices without bleeding K76.6, Portal hypertension K31.89, Other diseases of stomach and duodenum CPT copyright 2022 [employer]. All rights reserved. The codes documented in this report are preliminary and upon disassembler review may be revised to meet current [...] 12:10:16 PM Scope Out: 12:17:[address] [place] [address], [address] us Provider Not In System PROCEDURE/MINOR SURGICAL [...] MD, PhD LAB BLOOD ORDERABLES Final Result [facility] [address] [place] [address], [facility] * (ABNORMAL) Hepatic Function Panel (10/10/2024 5:23 AM EDT) Total Bilirubin 8.6(H) 0.0 - 1.5 mg/dL 10/10/2024 6:21 AM EDT [facility] Bilirubin, Direct 4.65(H) 0.00 - 0.40 mg/dL 10/10/2024 6:21 AM EDT [facility] AST 40(H) 13 - 39 U/L 10/10/2024 6:21 AM EDT [facility] ALT 22 7 - 52 U/L 10/10/2024 6:21 AM EDT [facility] Alkaline Phosphatase 118 36 - 125 U/L 10/10/2024 6:21 AM EDT [facility] Total Protein 4.6(L) 6.4 - 8.9 g/dL 10/10/2024 6:21 AM EDT [facility] Albumin 3.3(L) 3.5 - 5.7 g/dL 10/10/2024 6:21 AM EDT [facility] Bilirubin, Indirect 3.95(H) 0.00 - 1.10 mg/dL 10/10/2024 6:21 AM EDT [facility] Plasma 10/10/2024 5:23 AM EDT 10/10/2024 5:50 AM EDT us Eileen Schroeder MD, PhD LAB BLOOD ORDERABLES Final Result Performing Organization Address City/[facility]/ZIP Co de Phone Number [facility] [address] * Magnesium (10/10/2024 5:23 AM EDT) Magnesium 1.9 1.5 - 2.5 mg/dL 10/10/2024 6:21 AM EDT [facility] Plasma 10/10/2024 5:23 AM EDT 10/10/2024 5:50 AM EDT us Eileen Schroeder MD, PhD LAB BLOOD ORDERABLES Final Result Performing Organization Address [facility] de Phone Number [facility] [address] * (ABNORMAL) Renal Function Panel w/EGFR (10/10/2024 5:23 AM EDT) Sodium 135 133 - 146 mmol/L 10/10/2024 6:21 AM EDT [facility] Potassium 3.6 3.5 - 5.3 mmol/L 10/10/2024 6:21 AM EDT [facility] Chloride 108 98 - 110 mmol/L 10/10/2024 6:21 AM EDT [facility] CO2 17(L) 21 - 33 mmol/L 10/10/2024 6:21 AM EDT [facility] Anion Gap 10 3 - 16 mmol/L 10/10/2024 6:21 AM EDT [facility] BUN 53(H) 7 - 25 mg/dL 10/10/2024 6:21 AM EDT [facility] Creatinine 2.85(H) 0.60 - 1.30 mg/dL 10/10/2024 6:21 AM EDT [facility] Glucose 113(H) 70 - 100 mg/dL 10/10/2024 6:21 AM EDT [facility] Calcium 9.0 8.6 - 10.3 mg/dL 10/10/2024 6:21 AM EDT [facility] Phosphorus 3.3 2.1 - 4.7 mg/dL 10/10/2024 6:21 AM EDT [facility] Albumin 3.3(L) 3.5 - 5.7 g/dL 10/10/2024 6:21 AM EDT [facility] Osmolality, Calculated 295 278 - 305 mOsm/kg 10/10/2024 6:21 AM EDT [facility] EGFR 28 10/10/2024 6:21 AM EDT [facility] Comment:As of 2021, the estimated GFR [...] MD, PhD LAB BLOOD ORDERABLES Final Result [facility] [address] * (ABNORMAL) CBC (10/10/2024 5:23 AM EDT) WBC 5.1 3.8 - 10.8 10E3/uL 10/10/2024 6:14 AM EDT [facility] RBC 2.04(L) 4.20 - 5.80 10E6/uL 10/10/2024 6:14 AM EDT [facility] Hemoglobin 7.3(L) 13.2 - 17.1 g/dL 10/10/2024 6:14 AM EDT [facility] Hematocrit 20.6(L) 38.5 - 50.0 % 10/10/2024 6:14 AM EDT [facility] MCV 101.2(H) 80.0 - 100.0 fL 10/10/2024 6:14 AM EDT [facility] MCH 36.0(H) 27.0 - 33.0 pg 10/10/2024 6:14 AM EDT [facility] MCHC 35.5 32.0 - 36.0 g/dL 10/10/2024 6:14 AM EDT [facility] RDW 17.6(H) 11.0 - 15.0 % 10/10/2024 6:14 AM EDT [facility] Platelets 39(L) 140 - 400 10E3/uL 10/10/2024 6:14 AM EDT [facility] Comment: CNV Specimen checked for clots. None detected. MPV 9.8 7.5 - 11.5 fL 10/10/2024 6:14 AM EDT [facility] Whole Blood 10/10/2024 5:23 AM EDT 10/10/2024 5:51 AM EDT us Eileen Schroeder MD, PhD LAB BLOOD ORDERABLES Final Result Performing Organization Address City/[facility]/ZIP Co de Phone Number [facility] [address] * Vancomycin, random (10/10/2024 5:23 AM EDT) Vancomycin Random 16.4 ug/mL 10/10/2024 6:22 AM EDT [facility] Comment:Reference range not established for this test. Plasma 10/10/2024 5:23 AM EDT 10/10/2024 5:51 AM EDT us Jodi FreireD LAB BLOOD ORDERABLES Final Result Performing Organization Address [facility]/ZIP Co de Phone Number [facility] [address] * ECHO STRESS W/ CONTRAST (10/09/2024 4:37 PM EDT) Anatomical Region Laterality Modality Chest Ultrasound 10/09/2024 2:40 PM EDT Narrative 10/09/2024 6:45 PM EDT * [facility]* [address] [place] [address] Stress Echocardiogram Patient: Julien Gilbert Room: 8142 Height: 76in MR Number: [id number] : 1985 Weight: 262lb Account: [id number] Gender: M BP: 125 / 77 Study Date: 10/09/2024 Age: 39 BSA: 2.48m^2 Referring physician: Gerri Peterson Interpreting physician: Tonya Henriquez MD FELLOW Lisa Jha MD PERFORMING Tonya Henriquez MD 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 The infusion was terminated [...] at baseline or with provocation, shows no uvwqh-hk-zfve atrial level shunt. - Pulmonary arteries: Systolic [...] at baseline or with provocation, shows no dhnls-ho-ppdn atrial level shunt. Pulmonary artery: - Systolic [...] at baseline or with provocation, shows no vhxax-gy-vdlt atrial level shunt. Pericardium: - There is [...] peak heart rate and blood pressure was [id number] Hg/min. 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 The infusion was terminated [...] at baseline or with provocation, shows no xbjvc-ce-sgfa atrial level shunt. - Pulmonary arteries: Systolic [...] study at baseline or with provocation, showsno hpumn-zr-onbc atrial level shunt. Pulmonary artery: - Systolic [...] at baseline or with provocation, shows no npcqt-gs-wtsi atrial level shunt. Pericardium: - There is [...] heart rate). The maximal predicted heart rate [id number]. The target heart rate was 152bpm. The target heart rate was achieved.The heart rate response to stress is normal. There is a normal resting blood pressure with an appropriate response to stress. The rate-pressureproduct for the peak heart rate and blood pressure was 93849zk Hg/min. Stress testing did not produce any [...] Reviewed and confirmed by Tonya Henriquez MD [id number] us Gerri Peterson MD CV ECHO ORDERABLES Final Result * (ABNORMAL) Renal Function Panel w/EGFR, STAT (10/09/2024 1:05 PM EDT) Sodium 134 133 - 146 mmol/L 10/09/2024 2:10 PM EDT [facility] Potassium 3.7 3.5 - 5.3 mmol/L 10/09/2024 2:10 PM EDT [facility] Chloride 105 98 - 110 mmol/L 10/09/2024 2:10 PM EDT [facility] CO2 17(L) 21 - 33 mmol/L 10/09/2024 2:10 PM EDT [facility] Anion Gap 12 3 - 16 mmol/L 10/09/2024 2:10 PM EDT [facility] BUN 53(H) 7 - 25 mg/dL 10/09/2024 2:10 PM EDT [facility] Creatinine 2.89(H) 0.60 - 1.30 mg/dL 10/09/2024 2:10 PM EDT [facility] Glucose 108(H) 70 - 100 mg/dL 10/09/2024 2:10 PM EDT [facility] Calcium 9.3 8.6 - 10.3 mg/dL 10/09/2024 2:10 PM EDT [facility] Phosphorus 3.4 2.1 - 4.7 mg/dL 10/09/2024 2:10 PM EDT [facility] Albumin 3.6 3.5 - 5.7 g/dL 10/09/2024 2:10 PM EDT [facility] Osmolality, Calculated 293 278 - 305 mOsm/kg 10/09/2024 2:10 PM EDT [facility] EGFR 27 10/09/2024 2:10 PM EDT [facility] Comment:As of 2021, the estimated GFR [...] 1:05 PM EDT 10/09/2024 1:22 PM EDT Eileen Schroeder MD, PhD LAB BLOOD ORDERABLES Final Result [facility] [address] [place] [address], [facility] * (ABNORMAL) Renal Function Panel w/EGFR, STAT (10/09/2024 8:14 AM EDT) Sodium 134 133 - 146 mmol/L 10/09/2024 8:47 AM EDT [facility] Potassium 3.4(L) 3.5 - 5.3 mmol/L 10/09/2024 8:47 AM EDT [facility] Chloride 107 98 - 110 mmol/L 10/09/2024 8:47 AM EDT [facility] CO2 17(L) 21 - 33 mmol/L 10/09/2024 8:47 AM EDT [facility] Anion Gap 10 3 - 16 mmol/L 10/09/2024 8:47 AM EDT [facility] BUN 54(H) 7 - 25 mg/dL 10/09/2024 8:47 AM EDT [facility] Creatinine 3.04(H) 0.60 - 1.30 mg/dL 10/09/2024 8:47 AM EDT [facility] Glucose 124(H) 70 - 100 mg/dL 10/09/2024 8:47 AM EDT [facility] Calcium 9.0 8.6 - 10.3 mg/dL 10/09/2024 8:47 AM EDT [facility] Phosphorus 3.5 2.1 - 4.7 mg/dL 10/09/2024 8:47 AM EDT [facility] Albumin 3.4(L) 3.5 - 5.7 g/dL 10/09/2024 8:47 AM EDT [facility] Osmolality, Calculated 294 278 - 305 mOsm/kg 10/09/2024 8:47 AM EDT [facility] EGFR 26 10/09/2024 8:47 AM EDT [facility] Comment:As of 2021, the estimated GFR [...] MD LAB BLOOD ORDERABLES Final Resu lt [facility] [address] [place] [address], [facility] * Prepare RBC, leukoreduced, 1 Units (10/09/2024 6:16 AM EDT) Product Code F6889J12 [facility] Unit Number [id number] [facility] Dispense Status Presumed Transfused_PT [facility] Blood Expiration Date [id number] [facility] Coding System [id number] Blood Bank Product us Eileen Schroeder MD, PhD BLOOD BANK PRODUCT OR DERABLES Final Result [facility] * (ABNORMAL) Protime-INR (10/09/2024 4:59 AM EDT) Protime 26.5(H) 12.1 - 15.1 seconds 10/09/2024 6:30 AM EDT [facility] INR 2.4(H) 0.9 - 1.1 10/09/2024 6:30 AM EDT [facility] Comment: RECOMMENDED THERAPEUTIC RANGES USING INR : Stable oral anticoagulant therapy: 2.0 - 3.0 Mechanical prosthetic heart valve: 2.5 - 3.5 Recurrent acute myocardial infarction: 2.5 - 3.5 Plasma 10/09/2024 4:59 AM EDT 10/09/2024 5:55 AM EDT us Eileen Schroeder MD, PhD LAB BLOOD ORDERABLES Final Result Performing Organization Address City/[facility]/ZIP Co de Phone Number [facility] [address] * (ABNORMAL) Hepatic Function Panel (10/09/2024 4:59 AM EDT) Total Bilirubin 9.0(H) 0.0 - 1.5 mg/dL 10/09/2024 6:42 AM EDT [facility] Bilirubin, Direct 4.60(H) 0.00 - 0.40 mg/dL 10/09/2024 6:42 AM EDT [facility] AST 38 13 - 39 U/L 10/09/2024 6:42 AM EDT [facility] ALT 18 7 - 52 U/L 10/09/2024 6:42 AM EDT [facility] Alkaline Phosphatase 122 36 - 125 U/L 10/09/2024 6:42 AM EDT [facility] Total Protein 4.8(L) 6.4 - 8.9 g/dL 10/09/2024 6:42 AM EDT [facility] Albumin 3.4(L) 3.5 - 5.7 g/dL 10/09/2024 6:42 AM EDT [facility] Bilirubin, Indirect 4.40(H) 0.00 - 1.10 mg/dL 10/09/2024 6:42 AM EDT [facility] Plasma 10/09/2024 4:59 AM EDT 10/09/2024 5:57 AM EDT Eileen Schroeder MD, PhD LAB BLOOD ORDERABLES Final Result Performing Organization Address [facility]/ZIP Co de Phone Number [facility] [address] [facility]. [address] * Magnesium (10/09/2024 4:59 AM EDT) Magnesium 1.8 1.5 - 2.5 mg/dL 10/09/2024 6:42 AM EDT [facility] Plasma 10/09/2024 4:59 AM EDT 10/09/2024 5:57 AM EDT Eileen Schroeder MD, PhD LAB BLOOD ORDERABLES Final Result Performing Organization Address [facility] Co de Phone Number [facility] [address] * (ABNORMAL) Renal Function Panel w/EGFR (10/09/2024 4:59 AM EDT) Sodium 134 133 - 146 mmol/L 10/09/2024 6:42 AM EDT [facility] Potassium 3.3(L) 3.5 - 5.3 mmol/L 10/09/2024 6:42 AM EDT [facility] Chloride 107 98 - 110 mmol/L 10/09/2024 6:42 AM EDT [facility] CO2 16(L) 21 - 33 mmol/L 10/09/2024 6:42 AM EDT [facility] Anion Gap 11 3 - 16 mmol/L 10/09/2024 6:42 AM EDT [facility] BUN 56(H) 7 - 25 mg/dL 10/09/2024 6:42 AM EDT [facility] Creatinine 2.98(H) 0.60 - 1.30 mg/dL 10/09/2024 6:42 AM EDT [facility] Glucose 112(H) 70 - 100 mg/dL 10/09/2024 6:42 AM EDT [facility] Calcium 9.0 8.6 - 10.3 mg/dL 10/09/2024 6:42 AM EDT [facility] Phosphorus 3.5 2.1 - 4.7 mg/dL 10/09/2024 6:42 AM EDT [facility] Albumin 3.4(L) 3.5 - 5.7 g/dL 10/09/2024 6:42 AM EDT [facility] Osmolality, Calculated 294 278 - 305 mOsm/kg 10/09/2024 6:42 AM EDT [facility] EGFR 26 10/09/2024 6:42 AM EDT [facility] Comment:As of 2021, the estimated GFR [...] MD, PhD LAB BLOOD ORDERABLES Final Result [facility] [address] * (ABNORMAL) CBC (10/09/2024 4:59 AM EDT) WBC 4.6 3.8 - 10.8 10E3/uL 10/09/2024 6:21 AM EDT [facility] RBC 2.17(L) 4.20 - 5.80 10E6/uL 10/09/2024 6:21 AM EDT [facility] Hemoglobin 8.0(L) 13.2 - 17.1 g/dL 10/09/2024 6:21 AM EDT [facility] Hematocrit 21.8(L) 38.5 - 50.0 % 10/09/2024 6:21 AM EDT [facility] MCV 100.5(H) 80.0 - 100.0 fL 10/09/2024 6:21 AM EDT [facility] MCH 36.7(H) 27.0 - 33.0 pg 10/09/2024 6:21 AM EDT [facility] MCHC 36.5(H) 32.0 - 36.0 g/dL 10/09/2024 6:21 AM EDT [facility] RDW 18.1(H) 11.0 - 15.0 % 10/09/2024 6:21 AM EDT [facility] Platelets 36(L) 140 - 400 10E3/uL 10/09/2024 6:21 AM EDT [facility] Comment:Specimen checked for clots. None detected. MPV 8.3 7.5 - 11.5 fL 10/09/2024 6:21 AM EDT [facility] Whole Blood 10/09/2024 4:59 AM EDT 10/09/2024 5:56 AM EDT us Eileen Schroeder MD, PhD LAB BLOOD ORDERABLES Final Result [facility] [address] [place] [address], [facility] * Renal Tx Recipient (10/09/2024 4:59 AM EDT) Renal Transplant Recipient The request and specimen(s) for this test have been received and transported to the [facility] [place] at [address] [place] [address] [place]. The [facility] [place] will report results directly to the client. 10/09/2024 7:26 AM EDT [facility] Blood 10/09/2024 4:59 AM EDT 10/09/2024 7:26 AM EDT Aaron Gonzalez MD LAB BLOOD ORDERABLES Final Resu lt [facility] [address] * Vancomycin, random (10/09/2024 4:59 AM EDT) Vancomycin Random 11.0 ug/mL 10/09/2024 6:33 AM EDT [facility] Comment:Reference range not established for this test. Plasma 10/09/2024 4:59 AM EDT 10/09/2024 5:56 AM EDT us Jodi Ortiz PharmD LAB BLOOD ORDERABLES Final Result Performing Organization Address City/[facility]/ZIP Co de Phone Number [facility] [address] [facility]. [address] * (ABNORMAL) CBC (10/08/2024 5:52 PM EDT) WBC 5.6 3.8 - 10.8 10E3/uL 10/08/2024 6:52 PM EDT [facility] RBC 2.38(L) 4.20 - 5.80 10E6/uL 10/08/2024 6:52 PM EDT [facility] Hemoglobin 8.3(L) 13.2 - 17.1 g/dL 10/08/2024 6:52 PM EDT [facility] Hematocrit 24.6(L) 38.5 - 50.0 % 10/08/2024 6:52 PM EDT [facility] MCV 103.2(H) 80.0 - 100.0 fL 10/08/2024 6:52 PM EDT [facility] MCH 34.7(H) 27.0 - 33.0 pg 10/08/2024 6:52 PM EDT [facility] MCHC 33.6 32.0 - 36.0 g/dL 10/08/2024 6:52 PM EDT [facility] RDW 18.5(H) 11.0 - 15.0 % 10/08/2024 6:52 PM EDT [facility] Platelets 39(L) 140 - 400 10E3/uL 10/08/2024 6:52 PM EDT [facility] Comment:CNV MPV 8.1 7.5 - 11.5 fL 10/08/2024 6:52 PM EDT [facility] Whole Blood 10/08/2024 5:52 PM EDT 10/08/2024 6:45 PM EDT Eileen Schroeder MD, PhD LAB BLOOD ORDERABLES Final Result Performing Organization Address [facility] de Phone Number [facility] [address] * Transfuse RBC Has consent been obtained? Yes; Transfusion Rate: Per dept routine (10/08/2024 1:17 PM EDT) Eileen Schroeder MD, PhD NURSING TREATMENT ORD ERABLES - BLOOD ADMIN Final Result Performing Organization Address [facility] Co de Phone Number EXTERNAL * Transfuse RBC Has consent been obtained? Yes; Transfusion Rate: Per dept routine, 1 Units (10/08/2024 1:17 PM EDT) Eileen Schroeder MD, PhD NURSING TREATMENT ORD ERABLES - BLOOD ADMIN Final Result Performing Organization Address City/[facility] Co de Phone Number EXTERNAL * (ABNORMAL) MMR(IgG) Panel (Measles, Mumps, Rubella) (10/08/2024 10:25 AM EDT) Mumps IgG Positive 10/08/2024 11:39 AM EDT [facility] MUMPS IGG NUM 99.00(H) 0.0 - 8.9 U/mL 10/08/2024 11:39 AM EDT [facility] Rubella IgG Scr Positive 10/08/2024 11:40 AM EDT [facility] RUB NUM 4.15(H) 0.00 - 0.89 INDEX 10/08/2024 11:40 AM EDT [facility] Rubeola Ab, IgG Positive 10/08/2024 11:39 AM EDT [facility] RUB IGG NUM 273.00(H) 0.00 - 13.40 U/mL 10/08/2024 11:39 AM EDT [facility] Serum 10/08/2024 10:2 5 AM EDT 10/08/2024 10:49 AM EDT Narrative [facility] - 10/08/2024 11:40 AM EDT Presence [...] ORDERABLES Final Resu lt Performing Organization Address City/State/[facility] Co de Phone Number [facility] [address] [place] [address] * (ABNORMAL) Hemoglobin A1C (10/08/2024 10:25 AM EDT) Hemoglobin A1C 3.7(L) 4.0 - 5.6 % 10/09/2024 1:22 PM EDT [facility] Comment: Hemoglobin A1c Interpretation Guidelines: Normal: [...] ORDERABLES Final Resu lt [facility] [address] [facility] [place] [address], [facility] * (ABNORMAL) Vitamin D 25 Hydroxy (10/08/2024 10:25 AM EDT) Vit D, 25-Hydroxy 7.1(L) 30.0 - 100.0 ng/mL 10/08/2024 11:36 AM EDT [facility] Comment: Vitamin D deficiency has been defined by the [place] of [employer] (IOM) and an Endocrine Society [...] ORDERABLES Final Resu lt [facility] [address] [place] [address], [facility] * Iron Studies (Iron + TIBC) (10/08/2024 [...] ORDERABLES Final Resu lt Performing Organization Address City/[facility]/ZIP Co de Phone Number [facility] [address] [place] [address]. [address] * (ABNORMAL) Ferritin (10/08/2024 10:25 AM EDT) Ferritin 706.9(H) 23.9 - 336.2 ng/mL 10/08/2024 11:35 AM EDT [facility] Serum 10/08/2024 10:2 5 AM EDT 10/08/2024 10:49 AM EDT Gerri Peterson MD LAB BLOOD ORDERABLES Final Resu lt Performing Organization Address City/[facility]/ZIP Co de Phone Number [address] * QuantiFERON TB2 Ag (10/08/2024 10:25 AM EDT) QuantiFERON TB2 Ag Value 0.07 10/10/2024 10:41 AM EDT [facility] Plasma 10/08/2024 10:2 5 AM EDT 10/08/2024 11:05 AM EDT Gerri Peterson MD LAB BLOOD ORDERABLES Final Resu lt [facility] [address] * QuantiFERON TB1 Ag (10/08/2024 10:25 AM EDT) QuantiFERON TB1 Ag Value 0.06 10/10/2024 10:41 AM EDT [facility] Plasma 10/08/2024 10:2 5 AM EDT 10/08/2024 11:05 AM EDT Gerri Peterson MD LAB BLOOD ORDERABLES Final Resu lt [facility] [address] * QuantiFERON Nil (10/08/2024 10:25 AM EDT) QuantiFERON Nil 0.06 10:41 AM EDT [facility] Plasma 10/08/2024 10:2 5 AM EDT 10/08/2024 11:05 AM EDT Gerri Peterson MD LAB BLOOD ORDERABLES Final Resu lt Performing Organization Address [facility] Co de Phone Number [facility] [address] * QuantiFERON Mitogen (10/08/2024 10:25 AM EDT) QuantiFERON Interpretation Negative Negative 10/10/2024 10:41 AM EDT [facility] Comment:Negative result geovanny cates M. tuberculosis infection is NOT likely. Negative results do not preclude tuberculosis infection (especially in immunosuppressed patients). Negative results have a TB antigen minus Nil value less than 0.35 IU/mL. In cases with high suspicion of disease, retesting or additional testing with medical evaluation may be useful. QuantiFERON Mitogen 4.87 10/10 10:41 AM EDT [facility] Plasma 10/08/2024 10:2 5 AM EDT 10/08/2024 11:05 AM EDT Narrative [facility] - 10/10/2024 10:41 AM EDT The [...] ORDERABLES Final Resu lt Performing Organization Address [facility]/ZIP Co de Phone Number [facility] [address] [facility]. [address] * Reticulocyte Count, Auto (10/08/2024 7:41 AM EDT) Retic Ct Pct 1.35 0.50 - 2.00 % 10/08/2024 9:12 AM EDT [facility] Retic Ct Abs 26,190 25,000 - 90,000 /uL 10/08/2024 9:14 AM EDT [facility] Immature Retic Fract 0.37 0.09 - 0.56 10/08/2024 9:12 AM EDT [facility] Whole Blood 10/08/2024 7:41 AM EDT 10/08/2024 8:51 AM EDT us Angie Blanchard MD LAB BLOOD ORDERABLES Final Res ult Performing Organization Address [facility] Co de Phone Number [facility] [address] [facility]. [address] * (ABNORMAL) Haptoglobin (10/08/2024 7:41 AM EDT) Haptoglobin <30(L) 44 - 215 mg/dL 10/08/2024 8:53 AM EDT [facility] Serum 10/08/2024 7:41 AM EDT 10/08/2024 7:51 AM EDT Eileen Schroeder MD, PhD LAB BLOOD ORDERABLES Final Result Performing Organization Address [facility]/ZIP Co de Phone Number [facility] [address] [facility]. [address] * (ABNORMAL) CBC - Post Transfusion (10/08/2024 7:41 AM EDT) WBC 3.7(L) 3.8 - 10.8 10E3/uL 10/08/2024 8:34 AM EDT [facility] RBC 1.94(L) 4.20 - 5.80 10E6/uL 10/08/2024 8:34 AM EDT [facility] Hemoglobin 7.1(L) 13.2 - 17.1 g/dL 10/08/2024 8:34 AM EDT [facility] Hematocrit 20.0(L) 38.5 - 50.0 % 10/08/2024 8:34 AM EDT [facility] MCV 103.1(H) 80.0 - 100.0 fL 10/08/2024 8:34 AM EDT [facility] MCH 36.5(H) 27.0 - 33.0 pg 10/08/2024 8:34 AM EDT [facility] MCHC 35.4 32.0 - 36.0 g/dL 10/08/2024 8:34 AM EDT [facility] RDW 17.2(H) 11.0 - 15.0 % 10/08/2024 8:34 AM EDT [facility] Platelets 37(L) 140 - 400 10E3/uL 10/08/2024 8:34 AM EDT [facility] Comment: Specimen checked for clots. None detected. Slide Reviewed for PLT Clumps. None Seen. _Platelet Morphology Normal _Platelets Appear Decreased MPV 8.7 7.5 - 11.5 fL 10/08/2024 8:34 AM EDT [facility] Whole Blood 10/08/2024 7:41 AM EDT 10/08/2024 7:52 AM EDT Narrative [facility] - 10/08/2024 8:34 AM EDT Post-transfusion us Eileen Schroeder MD, PhD LAB BLOOD ORDERABLES Final Result [facility] [address] [place], [place] [address] * Antibody Screen (10/08/2024 7:41 AM EDT) Antibody Screen Negative 10/08/2024 8:26 AM EDT [facility] Blood 10/08/2024 7:41 AM EDT 10/08/2024 7:57 AM EDT Narrative [facility] - 10/08/2024 8:32 AM EDT Testing performed by [facility] Transfusion Service Eileen Schroeder MD, PhD BLOOD BANK TEST ORDER PAL Final Result Performing Organization Address City/[facility]/ZIP Co de Phone Number [facility] [address] * ABO/Rh (10/08/2024 7:41 AM EDT) ABO Grouping O 10/08/2024 8:14 AM EDT [facility] Rh Type Positive 10/08/2024 8:14 AM EDT [facility] Blood 10/08/2024 7:41 AM EDT 10/08/2024 7:57 AM EDT Eileen Schroeder MD, PhD BLOOD BANK TEST ORDER PAL Final Result Performing Organization Address [facility]/ZIP Co de Phone Number [facility] [address] * (ABNORMAL) Lactate dehydrogenase (10/08/2024 5:36 AM EDT) LD 102(L) 110 - 270 U/L 10/08/2024 8:20 AM EDT [facility] Plasma 10/08/2024 5:36 AM EDT 10/08/2024 7:58 AM EDT us Angie Blanchard MD LAB BLOOD ORDERABLES Final Res ult Performing Organization Address City/[facility]/ZIP Co de Phone Number [facility] [address] * (ABNORMAL) Protime-INR (10/08/2024 5:36 AM EDT) Protime 26.9(H) 12.1 - 15.1 seconds 10/08/2024 6:11 AM EDT [facility] INR 2.4(H) 0.9 - 1.1 10/08/2024 6:11 AM EDT [facility] Comment: RECOMMENDED THERAPEUTIC RANGES USING INR : Stable oral anticoagulant therapy: 2.0 - 3.0 Mechanical prosthetic heart valve: 2.5 - 3.5 Recurrent acute myocardial infarction: 2.5 - 3.5 Plasma 10/08/2024 5:36 AM EDT 10/08/2024 5:52 AM EDT us Eileen Schroeder MD, PhD LAB BLOOD ORDERABLES Final Result [facility] [address] [place], [place] [address] * (ABNORMAL) Hepatic Function Panel (10/08/2024 5:36 AM EDT) Total Bilirubin 7.7(H) 0.0 - 1.5 mg/dL 10/08/2024 6:25 AM EDT [facility] Bilirubin, Direct 4.28(H) 0.00 - 0.40 mg/dL 10/08/2024 6:25 AM EDT [facility] AST 34 13 - 39 U/L 10/08/2024 6:25 AM EDT [facility] ALT 16 7 - 52 U/L 10/08/2024 6:25 AM EDT [facility] Alkaline Phosphatase 103 36 - 125 U/L 10/08/2024 6:25 AM EDT [facility] Total Protein 4.7(L) 6.4 - 8.9 g/dL 10/08/2024 6:25 AM EDT [facility] Albumin 3.5 3.5 - 5.7 g/dL 10/08/2024 6:25 AM EDT [facility] Bilirubin, Indirect 3.42(H) 0.00 - 1.10 mg/dL 10/08/2024 6:25 AM EDT [facility] Plasma 10/08/2024 5:36 AM EDT 10/08/2024 5:52 AM EDT us Eileen Schroeder MD, PhD LAB BLOOD ORDERABLES Final Result [facility] [address] * Magnesium (10/08/2024 5:36 AM EDT) Magnesium 1.9 1.5 - 2.5 mg/dL 10/08/2024 6:25 AM EDT [facility] Plasma 10/08/2024 5:36 AM EDT 10/08/2024 5:52 AM EDT us Eileen Schroeder MD, PhD LAB BLOOD ORDERABLES Final Result Performing Organization Address [facility] Co de Phone Number [facility] [address] * (ABNORMAL) Renal Function Panel w/EGFR (10/08/2024 5:36 AM EDT) Sodium 135 133 - 146 mmol/L 10/08/2024 6:25 AM EDT [facility] Potassium 3.2(L) 3.5 - 5.3 mmol/L 10/08/2024 6:25 AM EDT [facility] Chloride 106 98 - 110 mmol/L 10/08/2024 6:25 AM EDT [facility] CO2 17(L) 21 - 33 mmol/L 10/08/2024 6:25 AM EDT [facility] Anion Gap 12 3 - 16 mmol/L 10/08/2024 6:25 AM EDT [facility] BUN 61(H) 7 - 25 mg/dL 10/08/2024 6:25 AM EDT [facility] Creatinine 3.10(H) 0.60 - 1.30 mg/dL 10/08/2024 6:25 AM EDT [facility] Glucose 106(H) 70 - 100 mg/dL 10/08/2024 6:25 AM EDT [facility] Calcium 9.0 8.6 - 10.3 mg/dL 10/08/2024 6:25 AM EDT [facility] Phosphorus 4.0 2.1 - 4.7 mg/dL 10/08/2024 6:25 AM EDT [facility] Albumin 3.5 3.5 - 5.7 g/dL 10/08/2024 6:25 AM EDT [facility] Osmolality, Calculated 298 278 - 305 mOsm/kg 10/08/2024 6:25 AM EDT [facility] EGFR 25 10/08/2024 6:25 AM EDT [facility] Comment:As of 2021, the estimated GFR [...] MD, PhD LAB BLOOD ORDERABLES Final Result [facility] [address] [address] * (ABNORMAL) CBC (10/08/2024 5:36 AM EDT) WBC 3.2(L) 3.8 - 10.8 10E3/uL 10/08/2024 6:41 AM EDT [facility] RBC 1.86(L) 4.20 - 5.80 10E6/uL 10/08/2024 6:41 AM EDT [facility] Hemoglobin 6.9(L) 13.2 - 17.1 g/dL 10/08/2024 6:41 AM EDT [facility] Hematocrit 18.9(L) 38.5 - 50.0 % 10/08/2024 6:41 AM EDT [facility] MCV 101.6(H) 80.0 - 100.0 fL 10/08/2024 6:41 AM EDT [facility] MCH 36.9(H) 27.0 - 33.0 pg 10/08/2024 6:41 AM EDT [facility] MCHC 36.3(H) 32.0 - 36.0 g/dL 10/08/2024 6:41 AM EDT [facility] RDW 17.0(H) 11.0 - 15.0 % 10/08/2024 6:41 AM EDT [facility] Platelets 34(L) 140 - 400 10E3/uL 10/08/2024 6:41 AM EDT [facility] Comment: Specimen checked for clots. None detected. Slide Reviewed for PLT Clumps. None Seen. Platelet Estimate Decreased 10/08/2024 6:41 AM EDT [facility] MPV 8.4 7.5 - 11.5 fL 10/08/2024 6:41 AM EDT [facility] Whole Blood 10/08/2024 5:36 AM EDT 10/08/2024 5:53 AM EDT Narrative [facility] - 10/08/2024 6:41 AM EDT Peripheral blood smear was scanned per review criteria approved by the laboratory medical logistics specialist. us Eileen Schroeder MD, PhD LAB BLOOD ORDERABLES Final Result Performing Organization Address City/[facility]/ZIP Co de Phone Number [facility] [address] * Vancomycin, random (10/08/2024 5:36 AM EDT) Vancomycin Random 16.0 ug/mL 10/08/2024 6:20 AM EDT [facility] Comment:Reference range not established for this test. Plasma 10/08/2024 5:36 AM EDT 10/08/2024 5:52 AM EDT us Jodi FreireD LAB BLOOD ORDERABLES Final Result [facility] [address] * Urine Drug Confirmation (10/07/2024 10:50 PM EDT) BARBITURATES NOT PRESENT 10/09/2024 1:33 PM EDT [facility] BENZODIAZEPINES PRESENT 1:33 PM EDT [facility] Nordiazepam 3 ng/mL 10/09/2024 1:33 PM EDT [facility] Temazepam 6 ng/mL 10/09/2024 1:33 PM EDT [facility] CANNABINOIDS NOT PRESENT 10/09/2024 1:33 PM EDT [facility] OCULAR CARE AIDE STIMULANTS NOT PRESENT 1:33 PM EDT [facility] OPIOID ANALGESICS PRESENT 025 1:33 PM EDT [facility] Oxycodone 300 ng/mL 10/09/2024 1:33 PM EDT [facility] Oxymorphone 32 ng/mL 10/09/2024 1:33 PM EDT [facility] Tramadol >1000 ng/mL 10/09/2024 1:33 PM EDT [facility] OPIOID ANTAGONISTS NOT PRESENT 10/09 1:33 PM EDT [facility] SEDATIVES/MUSCLE RELAXANTS NOT PRESENT 10/09/2024 1:33 PM EDT [facility] TRICYCLIC ANTIDEPRESSANTS NOT PRESENT 10/09/2024 1:33 PM EDT [facility] Urine 10/07/2024 10:5 0 PM EDT 10/08/2024 3:00 AM EDT Gerri Peterson MD URINE ORDERABLES Final Result [facility] [address] * Giardia Cryptosporidium Antigens (10/07/2024 10:50 PM EDT) Cryptosporidium Ag Negative Negative 2024 7:59 AM EDT [facility] Giardia Ag Negative Negative 10/08/2024 7:59 AM EDT [facility] Comment: Detection of Giardia and Cryptosporidium antigen is more sensitive and specific than microscopy. Because antigens are shed continuously, repeat testing is rarely warranted. Feces 10/07/2024 10:5 0 PM EDT 10/08/2024 1:53 AM EDT Comment:F Bisi Hernandez DO MICROBIOLOGY - GENERAL ORDERABLE S Final Result [facility] [address] [place], [place] [address] * (ABNORMAL) Urine Drug Screen Reflex to Confirmation (10/07/2024 10:50 PM EDT) Amphetamine, 500 ng/mL Cutoff Negative Negative 10/08/2024 3:00 AM EDT [facility] Barbiturates UR, 300 ng/mL Cutoff Negative Negative 10/08/2024 3:00 AM EDT [facility] Buprenorphine, 5 ng/mL Cutoff Negative Negative 10/08/2024 3:00 AM EDT [facility] Benzodiazepines UR, 300 ng/mL Cutoff Negative Negative 10/08/2024 3:00 AM EDT [facility] Cocaine UR, 300 ng/mL Cutoff Negative Negative 10/08/2024 3:00 AM EDT [facility] Methadone, UR, 300 ng/mL Cutoff Negative Negative 10/08/2024 3:00 AM EDT [facility] Opiates UR, 300 ng/mL Cutoff Negative Negative 10/08/2024 3:00 AM EDT [facility] Oxycodone, 100 ng/mL Cutoff Presumptive Positive(A) Negative 10/08/2024 3:00 AM EDT [facility] Tricyclic Antidepressants, 300 ng/mL Cutoff Negative Negative 10/08/2024 3:00 AM EDT [facility] Comment:This test has been d eveloped and its performance characteristics determined by [facility] which is certified under [...] eveloped and its performance characteristics determined by [facility] which is certified under [...] URINE ORDERABLES Final Result Performing Organization Address City/State/[facility] Co de Phone Number [facility] [address] * Comprehensive Drug Screen (10/07/2024 10:50 PM EDT) Creatinine, Ur CANCELED mg/dL 10/08/2024 7:09 AM EDT [facility] Comment:The released value 8 7.30 was canceled by YAQUELIN on 10/08/2024 07:09 BARBITURATES CANCELED [facility] Butalbital CANCELED [facility] Phenobarbital CANCELED [facility] Secobarbital CANCELED [facility] BENZODIAZEPINES CANCELED H [facility] Alprazolam [facility]ELED [facility] Clonazepam [facility] Diazepam [facility] Alpha-Hydroxyalprazo mcknight CANCELED [facility] Lorazepam CANCELED [facility] Midazolam [facility]ELED [facility] Nordiazepam [facility] Oxazepam [facility] Temazepam [facility] CANNABINOIDS CANCELED [facility] THC-COOH CANCELED [facility] OCULAR CARE AIDE STIMULANTS CANCELED [facility] Cocaine Metabolite(benzoylec gonine) CANCELED [facility] Amphetamine CANCELED [facility] Methamphetamine CANCELED [facility] MDA CANCELED [facility] MDEA CANCELED [facility] Phencyclindine (PCP) CANCELED [facility] OPIOID ANALGESICS [facility]CELED [facility] Heroin Metabolite(6-RAMONA) CANCELED [facility] Codeine CANCELED [facility] Morphine CANCELED [facility] Hydrocodone CANCELED [facility] Hydromorphone CANCELED [facility] Oxycodone CANCELED [facility] Oxymorphone CANCELED [facility] Meperidine CANCELED [facility] Normeperidine [facility]ELED [facility] Methadone CANCELED [facility] Methadone Metabolite (EDDP) CANCELED [facility] Tramadol CANCELED [facility] Fentanyl [facility]CELED [facility] Norfentanyl CANCELED [facility] Sufentanil CANCELED [facility] OPIOID ANTAGONISTS CANCELED [facility] Buprenorphine [facility]ELED [facility] Norbuprenorphine [facility]ELED [facility] Naltrexone CANCELED [facility] Naloxone CANCELED [facility] SEDATIVES/MUSCLE RELAXANTS CANCELED [facility] Carisoprodol CANCELED [facility] Meprobamate CANCELED [facility] TRICYCLIC ANTIDEPRESSANTS CANCELED [facility] Amitriptyline CANCELED [facility] Clomipramine CANCELED [facility] Desipramine CANCELED [facility] Doxepin CANCELED [facility] Imipramine CANCELED [facility] Nortriptyline CANCELED [facility] Urine Creatinine CANCELED mg/dL [facility] Nitrite CANCELED [facility] Glutaraldehyde CANCELED [facility] pH CANCELED 10/08/2024 7:09 AM EDT [facility] Comment:The released value 5 .6 was canceled by YAQUELIN on 10/08/2024 07:09 Specific Agency CANCELED 10/09/19 7:09 AM EDT [facility] Comment:The released value 1 .009 was canceled by YAQUELIN on 10/08/2024 07:09 Bleach CANCELED [facility] Pyridinium Chlorochromate CANCELED [facility] Urine 10/07/2024 10:5 0 PM EDT 10/08/2024 2:07 AM EDT Narrative [facility] - 10/08/2024 7:09 AM EDT See accn [id number] Gerri Peterson MD URINE ORDERABLES Edited Result - Final Performing Organization Address [facility] Co de Phone Number [facility] [address] [place] [address] * Ova and Parasite Comprehensive w/ Giardia/Crypto (10/07/2024 10:50 PM EDT) Pathologist [facility] [place] O & P Method: Concentration and Trichrome Stain [facility] Results No Amoeba, Ova, Or Parasites Seen. -- O and P examination of additional specimens is recommended only for symptomatic patients, immunosuppressed patients or those with an appropriate travel history. [facility] [facility] Feces FECES / Unknown 10/07/2024 1 0:50 PM EDT 10/08/2024 1:53 AM EDT Comment:F Bisi Hernandez DO MICROBIOLOGY - GENERAL ORDERABLE S Final Result Performing Organization Address [facility] de Phone Number [facility] [address] [place] [address] * Enteric Pathogen Panel (10/07/2024 10:50 PM EDT) Pathologist [facility] [place] Campylobacter Group (C. ecoli, C. jejuni, C. trino) Not Detected Not Detected 10/08/2024 4:40 AM EDT [facility] Salmonella species Not Detected Not Detected 10/08/2024 4:40 AM EDT [facility] Shigella species Not Detected Not Detected 10/08/2024 4:40 AM EDT [facility] Vibrio Group (Vibrio cholerae, Vibrio parahaemolyticus) Not Detected Not Detected 10/08/2024 4:40 AM EDT [facility] Yersinia enterocolitica Not Detected Not Detected 10/08/2024 4:40 AM EDT [facility] Shiga toxin 1 Not Detected Not Detected 10/08/2024 4:40 AM EDT [facility] Shiga toxin 2 Not Detected Not Detected 10/08/2024 4:40 AM EDT [facility] Norovirus Not Detected Not Detected 10/08/2024 4:40 AM EDT [facility] Rotavirus Not Detected Not Detected 10/08/2024 4:40 AM EDT [facility] Comment: The Enteric Pathogen Panel is [...] Result Performing Organization Address [facility]/ZIP Co de Phone Number [facility] [address] [facility]. [address] * Hepatitis C Antibody (10/07/2024 6:38 PM EDT) HCV Ab Nonreactive Nonreactive 10/07/2024 7:56 PM EDT [facility] Comment:Health Department no tified in accordance with reportable infectious disease guidelines. Serum 10/07/2024 6:38 PM EDT 10/07/2024 6:52 PM EDT Narrative [facility] - 10/07/2024 7:56 PM EDT Antibodies to HCV not detected; does not exclude the possibility of exposure to HCV. Gerri Peterson MD LAB BLOOD ORDERABLES Final Resu lt [facility] [address] * Hepatitis B Surface Antibody, Quantitati (10/07/2024 6:38 PM EDT) Hep B S Ab Nonreactive Nonreactive 10/07/2024 8:00 PM EDT [facility] HBSAB NUMBER 7.88 0.00 - 7.99 mIU/mL 10/07/2024 8:00 PM EDT [facility] Serum 10/07/2024 6:38 PM EDT 10/07/2024 6:52 PM EDT [facility] - 10/07/2024 8:00 PM EDT Individual is considered not immune to HBV infection. Gerri Peterson MD LAB BLOOD ORDERABLES Final Resu lt Performing Organization Address [facility]/ZIP Co de Phone Number [facility] [address] [facility]. [address] * Hepatitis B surface antigen (10/07/2024 6:38 PM EDT) Hep B Surface Ag Nonreactive Nonreactive 10/07/2024 7:51 PM EDT [facility] Comment:Health Department no tified in accordance with reportable infectious disease guidelines. Serum 10/07/2024 6:38 PM EDT 10/07/2024 6:52 PM EDT [facility] - 10/07/2024 7:51 PM EDT Specimen is considered negative for HBsAg. Gerri Peterson MD LAB BLOOD ORDERABLES Final Resu lt Performing Organization Address City/[facility]/ZIP Co de Phone Number [facility] [address] [facility]. [address] * Hepatitis A Antibody Total (10/07/2024 6:38 PM EDT) Anti-HAV Total (IgG + IgM) Nonreactive 10/07/2024 7:53 PM EDT [facility] Serum 10/07/2024 6:38 PM EDT 10/07/2024 6:52 PM EDT [facility] - 10/07/2024 7:53 PM EDT HAV antibodies not detected Gerri Peterson MD LAB BLOOD ORDERABLES Final Resu lt Performing Organization Address [facility]/ZIP Co de Phone Number [facility] [address] * Hepatitis A IgM (10/07/2024 6:38 PM EDT) Hep A IgM Nonreactive Nonreactive 10/07/2024 7:46 PM EDT [facility] Serum 10/07/2024 6:38 PM EDT 10/07/2024 6:52 PM EDT Narrative [facility] - 10/07/2024 7:46 PM EDT IgM anti-HAV not detected. Does not exclude the possibility of exposure to or infection with HAV. Levels of IgM anti-HAV may be below the cut-off in early infection. Gerri Peterson MD LAB BLOOD ORDERABLES Final Resu lt Performing Organization Address [facility] Co de Phone Number [facility] [address] * (ABNORMAL) Lipid Profile (10/07/2024 6:37 PM EDT) Non-HDL Cholesterol, Calculated See Note 0 - 129 mg/dL 10/07/2024 7:42 PM EDT [facility] Comment: Desirable: < 130 mg/dL Above Desirable: 130-159 mg/dL Borderline High: 160-189 mg/dL High: 190-219 mg/dL Very High: > 219 mg/dL Unable to calculate result either because contributing result(s) are outside of reportable range or are not available. Cholesterol, Total <25 0 - 200 mg/dL 10/07/2024 7:42 PM EDT [facility] Triglycerides 30 10 - 149 mg/dL 10/07/2024 7:42 PM EDT [facility] HDL 4(L) 60 - 92 mg/dL 10/07/2024 7:42 PM EDT [facility] Comment: LIPID PROFILE INTERPRETATION CHOLESTEROL,TOTAL(mg/dL) DESIRABLE: [...] Cholesterol See Note mg/dL 7:42 PM EDT [facility] Comment:Unable to calculate result either because contributing result(s) are outside of reportable range or are not available. Plasma 10/07/2024 6:37 PM EDT 10/07/2024 7:06 PM EDT Narrative [facility] - 10/07/2024 7:42 PM EDT LDL cholesterol calculated using the Friedewald equation. us Gerri Peterson MD LAB BLOOD ORDERABLES Final Resu lt [facility] [address] [id number], [facility] * (ABNORMAL) Alpha 1 Antitrypsin AAT Quant & Mutation (10/07/2024 6:37 PM EDT) A-1 Antitrypsin 99(L) 101 - 187 mg/dL 10/09/2024 4:28 AM EDT [facility] A-1 Antitrypsin Pheno Comment 10/10/2024 4:05 PM EDT [facility] Comment: A1A Phenotype is consistent with a heterozygous phenotype consisting of one M (normal) allele and one allele that cannot be identified at this time. The unknown allele is not consistent with Z (deficient), S (deficient), or F (deficient). MM Phenotype is considered to be normal , producing normal serum levels of [id number] inhibitor and not associated with clinical disease. [...] PM EDT 10/10/2024 4:08 PM EDT Narrative [facility] - 10/10/2024 4:08 PM EDT PERFORMED AT: [facility] [address] [id number] SOW MANAGER: Bassam Khalil, PhD PHONE: [phone] PERFORMED AT: [facility] [address] [id number] SOW MANAGER: Mandy Abdul MD PHONE: [phone] us Gerri Peterson MD LAB BLOOD ORDERABLES Final Resu lt [facility] [address] * (ABNORMAL) CMV IgG Antibody (10/07/2024 6:37 PM EDT) CMV IgG Positive(A ) Negative 10/07/2024 8:26 PM EDT [facility] CMV IGG NUM 8.40(H) 0.00 - 0.59 U/mL 10/07/2024 8:26 PM EDT [facility] Serum 10/07/2024 6:37 PM EDT 10/07/2024 6:50 PM EDT us Askanda Nicholas MD LAB BLOOD ORDERABLES Final Resu lt [facility] [address] [facility]. [address] * HIV-1 and HIV-2 Antibodies w Reflex (10/07/2024 6:37 PM EDT) HIV 1+2 AB/AGN Nonreactive Nonreactive 10/07/2024 7:54 PM EDT [facility] Serum 10/07/2024 6:37 PM EDT 10/07/2024 7:06 PM EDT Narrative [facility] - 10/07/2024 7:54 PM EDT \HIVRNR Gerri Peterson MD LAB BLOOD ORDERABLES Final Resu lt Performing Organization Address [facility]/ZIP Co de Phone Number [facility] [address] [facility]. [address] * TSH (Thyroid Stimulating Hormone) (10/07/2024 6:37 PM EDT) Pathologist [facility] [place] TSH 0.81 0.45 - 4.12 uIU/mL 10/07/2024 8:17 PM EDT [facility] Serum 10/07/2024 6:37 PM EDT 10/07/2024 6:50 PM EDT Gerri Peterson MD LAB BLOOD ORDERABLES Final Resu lt [facility] [address] [facility]. [address] * Katie-Watkins virus early antigen antibody, IgG (10/07/2024 6:37 PM EDT) EBV Early Antigen Ab, IgG <9.0 0.0 - 8.9 U/mL 10/09/2024 2:16 PM EDT [facility] Comment: Negative < 9.0 Equivocal 9.0 - 10.9 Positive >10.9 Serum Frozen 10/07/2024 6:37 PM EDT 10/09/2024 3:07 PM EDT Narrative [facility] - 10/09/2024 3:07 PM EDT PERFORMED AT: [address] [id number] SOW MANAGER: Bassam Khalil, PhD PHONE: [phone] Gerri Peterson MD LAB BLOOD ORDERABLES Final Resu lt Performing Organization Address [facility] Co de Phone Number [facility] [address] [place] [address] * (ABNORMAL) Varicella zoster antibody, IgG (10/07/2024 6:37 PM EDT) Varicella IgG Positive( A) Negative S/CO 10/07/2024 8:34 PM EDT [facility] Comment:Result indicates the presence of detectable VZV IgG antibodies. A positive result is generally indicative of exposure to the pathogen or administration of specific immunoglobulins, but it is no indication of active infection or stage of disease. This test is not approved for determining vaccine-induced immunity to varicella zoster virus. VZV NUM 6.76(H) 0.00 - 0.99 S/CO 10/07/2024 8:34 PM EDT [facility] Serum 10/07/2024 6:37 PM EDT 10/07/2024 6:50 PM EDT Gerri Peterson MD LAB BLOOD ORDERABLES Final Resu lt Performing Organization Address [facility] Co de Phone Number [facility] [address] [place] [address]. [address] * Toxoplasma gondii antibody, IgG (10/07/2024 6:37 PM EDT) Toxoplasma Gondii IgG <3.0 0.0 - 7.1 IU/mL 10/09/2024 7:53 AM EDT [facility] Comment: Negative <7.2 Equivocal 7.2 - 8.7 Positive >8.7 Serum 10/07/2024 6:37 PM EDT 10/09/2024 8:07 AM EDT Narrative [facility] - 10/09/2024 8:07 AM EDT PERFORMED AT: [facility] [address] [id number] SOW MANAGER: Bassam Khalil, PhD PHONE: [phone] us Gerri Peterson MD LAB BLOOD ORDERABLES Final Resu lt [facility] [address] [facility]. [address] * Syphilis Screening (Trepia) (10/07/2024 6:37 PM EDT) Treponema Pallidum Negative Negative 10/07/2024 8:27 PM EDT [facility] Comment: No serological evidence of infection with Treponema pallidum (incubating or early primary syphilis cannot be excluded). Serum 10/07/2024 6:37 PM EDT 10/07/2024 6:50 PM EDT us Gerri Peterson MD LAB BLOOD ORDERABLES Final Resu lt Performing Organization Address City/[facility]/ZIP Co de Phone Number [facility] [address] [facility]. [address] * Strongyloides Ab (10/07/2024 6:37 PM EDT) Strongyloides Ab Negative Negative 10/11/19 11:51 AM EDT [facility] Serum 10/07/2024 6:37 PM EDT 10/10/2024 12:07 PM EDT Narrative [facility] - 10/10/2024 12:07 PM EDT PERFORMED AT: [facility] [id number] SOW MANAGER: Mandy Abdul MD PHONE: [phone] us Gerri Peterson MD LAB BLOOD ORDERABLES Final Resu lt [facility] [address] [facility]. [place] [id number] * Phosphatidylethanol Confirmation, B (10/07/2024 6:37 PM EDT) PETH 16:0/18.1 (POPETH) <10 Cutoff: 10 ng/mL 10/10/2024 10:42 AM EDT [facility] Comment: Phosphatidylethanol (PEth) homologues result interpretation [...] Cutoff: 10 ng/mL 10/10/2024 10:42 AM EDT [facility] Comment: PEth 16:0/18:2 (PLPEth) Reference ranges are not well established PEth Interpretation Negative. 10/10 10:42 AM EDT [facility] Comment: ADDITIONAL INFORMATION This report is intended for use in clinical monitoring and management of patients. It is not intended for use in employment-related testing. This test was developed and its performance characteristics determined by [facility] in a manner consistent with CLIA requirements. This test has not been cleared or approved by the U.S. Food and Drug Administration. Test Performed by: [facility] - [id number] [place] [address] Clerical Coordinator: Kathy Ortiz Ph.D.; CLIA# [id number] Whole Blood 10/07/2024 6:37 PM EDT 10/10/2024 10:42 AM EDT us Gerri Peterson MD LAB BLOOD ORDERABLES Final Resu lt [facility] [address] [place] [address], [facility] * (ABNORMAL) MMR(IgG) Panel (Measles, Mumps, Rubella) (10/07/2024 6:37 PM EDT) Mumps IgG Positive 10/07/2024 8:26 PM EDT [facility] MUMPS IGG NUM 77.80(H) 0.0 - 8.9 U/mL 10/07/2024 8:26 PM EDT [facility] Rubella IgG Scr Positive 10/07/2024 8:28 PM EDT [facility] RUB NUM 3.04(H) 0.00 - 0.89 INDEX 10/07/2024 8:28 PM EDT [facility] Rubeola Ab, IgG Positive 10/07/2024 8:26 PM EDT [facility] RUB IGG NUM 192.00(H) 0.00 - 13.40 U/mL 10/07/2024 8:26 PM EDT [facility] Serum 10/07/2024 6:37 PM EDT 10/07/2024 6:50 PM EDT Narrative [facility] - 10/07/2024 8:28 PM EDT Presence [...] MD LAB BLOOD ORDERABLES Final Resu lt [facility] [address] [place] [address], [facility] * IgA (10/07/2024 6:37 PM EDT) IgA 227.0 70.0 - 400.0 mg/dL 10/08/2024 11:07 AM EDT [facility] Comment:Please interpret the se findings in conjunction with clinical findings, protein electrophoresis, and immunotyping/immunofixation results. Serum 10/07/2024 6:37 PM EDT 10/07/2024 6:50 PM EDT Gerri Peterson MD LAB BLOOD ORDERABLES Final Resu lt Performing Organization Address City/[facility]/ZIP Co de Phone Number [facility] [address] * Ethanol, Serum (10/07/2024 6:37 PM EDT) Ethanol <10 0 - 10 mg/dL 10/07/2024 8:36 PM EDT [facility] Serum 10/07/2024 6:37 PM EDT 10/07/2024 6:50 PM EDT Gerri Peterson MD LAB BLOOD ORDERABLES Final Resu lt Performing Organization Address [facility] Co de Phone Number [facility] [address] [facility]. [address] * ABO/Rh - Second (10/07/2024 6:37 PM EDT) ABO Grouping O 10/07/2024 7:16 PM EDT [facility] Rh Type Positive 10/07/2024 7:16 PM EDT [facility] Blood 10/07/2024 6:37 PM EDT 10/07/2024 6:56 PM EDT Narrative [facility] - 10/07/2024 7:18 PM EDT This is not a duplicate order. It is required that ABO be drawn twice for LIVER TRANSPLANT Gerri Peterson MD BLOOD BANK TEST ORDERABLES Denisse l Result Performing Organization Address City/[facility]/ZIP Co de Phone Number [facility] [address] * ABO/Rh- Initial (10/07/2024 6:37 PM EDT) ABO Grouping O 10/07/2024 7:59 PM EDT [facility] Rh Type Positive 10/07/2024 7:59 PM EDT [facility] Blood 10/07/2024 6:37 PM EDT 10/07/2024 7:25 PM EDT Gerri Peterson MD BLOOD BANK TEST ORDERABLES Denisse l Result [facility] [address] [place] [address], [facility] * X-ray Mandible minimum 4-views [...] EXAM: US ABDOMEN COMPLETE EXAM: US DUPLEX [id number] COMPLETE INDICATION: elevated bilirubin COMPARISON: Ultrasound and [...] EXAM: US ABDOMEN COMPLETE EXAM: US DUPLEX [id number] COMPLETE INDICATION: elevated bilirubin COMPARISON: Ultrasound and [...] 4:26 PM EDT us Bisi Hernandez DO [facility] US ORDERABLES Final Result * US Duplex Rkz-Pdy-Ueylyhx Comp (10/07/2024 3:48 PM EDT) Anatomical Region [...] EXAM: US ABDOMEN COMPLETE EXAM: US DUPLEX [id number] COMPLETE INDICATION: elevated bilirubin COMPARISON: Ultrasound and [...] EXAM: US ABDOMEN COMPLETE EXAM: US DUPLEX [id number] COMPLETE INDICATION: elevated bilirubin COMPARISON: Ultrasound and [...] 4:26 PM EDT us Bisi Hernandez DO [facility] US ORDERABLES Final Result * CARISA Rhythm Strip - Scan (10/07/2024 3:30 PM EDT) us Scanning Uchksm SCAN DOCS - NO RESULTS Final Res [...] MD, PhD LAB BLOOD ORDERABLES Final Result [facility] [address] * (ABNORMAL) Hepatic Function Panel (10/07/2024 6:00 AM EDT) Total Bilirubin 9.7(H) 0.0 - 1.5 mg/dL 10/07/2024 7:10 AM EDT [facility] Bilirubin, Direct 5.21(H) 0.00 - 0.40 mg/dL 10/07/2024 7:10 AM EDT [facility] AST 39 13 - 39 U/L 10/07/2024 7:10 AM EDT [facility] ALT 18 7 - 52 U/L 10/07/2024 7:10 AM EDT [facility] Alkaline Phosphatase 98 36 - 125 U/L 10/07/2024 7:10 AM EDT [facility] Total Protein 4.8(L) 6.4 - 8.9 g/dL 10/07/2024 7:10 AM EDT [facility] Albumin 3.6 3.5 - 5.7 g/dL 10/07/2024 7:10 AM EDT [facility] Bilirubin, Indirect 4.49(H) 0.00 - 1.10 mg/dL 10/07/2024 7:10 AM EDT [facility] Plasma 10/07/2024 6:00 AM EDT 10/07/2024 6:39 AM EDT Eileen Schroeder MD, PhD LAB BLOOD ORDERABLES Final Result Performing Organization Address [facility]/ZIP Co de Phone Number [facility] [address] * Magnesium (10/07/2024 6:00 AM EDT) Magnesium 1.7 1.5 - 2.5 mg/dL 10/07/2024 7:10 AM EDT [facility] Plasma 10/07/2024 6:00 AM EDT 10/07/2024 6:39 AM EDT Eileen Schroeder MD, PhD LAB BLOOD ORDERABLES Final Result Performing Organization Address [facility] de Phone Number [facility] [address] [place] [address] * (ABNORMAL) Renal Function Panel w/EGFR (10/07/2024 6:00 AM EDT) Sodium 132(L) 133 - 146 mmol/L 10/07/2024 7:10 AM EDT [facility] Potassium 3.9 3.5 - 5.3 mmol/L 10/07/2024 7:10 AM EDT [facility] Chloride 103 98 - 110 mmol/L 10/07/2024 7:10 AM EDT [facility] CO2 19(L) 21 - 33 mmol/L 10/07/2024 7:10 AM EDT [facility] Anion Gap 10 3 - 16 mmol/L 10/07/2024 7:10 AM EDT [facility] BUN 64(H) 7 - 25 mg/dL 10/07/2024 7:10 AM EDT [facility] Creatinine 3.38(H) 0.60 - 1.30 mg/dL 10/07/2024 7:10 AM EDT [facility] Glucose 111(H) 70 - 100 mg/dL 10/07/2024 7:10 AM EDT [facility] Calcium 9.1 8.6 - 10.3 mg/dL 10/07/2024 7:10 AM EDT [facility] Phosphorus 4.2 2.1 - 4.7 mg/dL 10/07/2024 7:10 AM EDT [facility] Albumin 3.6 3.5 - 5.7 g/dL 10/07/2024 7:10 AM EDT [facility] Osmolality, Calculated 293 278 - 305 mOsm/kg 10/07/2024 7:10 AM EDT [facility] EGFR 22 10/07/2024 7:10 AM EDT [facility] Comment:As of 2021, the estimated GFR [...] MD, PhD LAB BLOOD ORDERABLES Final Result [facility] [address] [place] [address], [facility] * (ABNORMAL) CBC (10/07/2024 6:00 AM EDT) WBC 3.3(L) 3.8 - 10.8 10E3/uL 10/07/2024 7:55 AM EDT [facility] RBC 2.06(L) 4.20 - 5.80 10E6/uL 10/07/2024 7:55 AM EDT [facility] Hemoglobin 7.4(L) 13.2 - 17.1 g/dL 10/07/2024 7:55 AM EDT [facility] Hematocrit 21.5(L) 38.5 - 50.0 % 10/07/2024 7:55 AM EDT [facility] MCV 104.1(H) 80.0 - 100.0 fL 10/07/2024 7:55 AM EDT [facility] MCH 35.8(H) 27.0 - 33.0 pg 10/07/2024 7:55 AM EDT [facility] MCHC 34.4 32.0 - 36.0 g/dL 10/07/2024 7:55 AM EDT [facility] RDW 17.5(H) 11.0 - 15.0 % 10/07/2024 7:55 AM EDT [facility] Platelets 35(L) 140 - 400 10E3/uL 10/07/2024 7:55 AM EDT [facility] Comment: Specimen checked for clots. None detected. Slide Reviewed for PLT Clumps. None Seen. _Platelet Morphology Normal _Platelets Appear Decreased Platelet Estimate Decreased 10/07/2024 7:55 AM EDT [facility] MPV 8.0 7.5 - 11.5 fL 10/07/2024 7:55 AM EDT [facility] Whole Blood 10/07/2024 6:00 AM EDT 10/07/2024 6:40 AM EDT Narrative [facility] - 10/07/2024 7:55 AM EDT Peripheral blood smear was scanned per review criteria approved by the laboratory medical logistics specialist. us Eileen Schroeder MD, PhD LAB BLOOD ORDERABLES Final Result [facility] [address] [facility] [place] [address], [facility] * AFP Tumor Marker (10/07/2024 6:00 AM EDT) AFP-Tumor Marker 2.0 0.0 - 9.0 ng/mL 10/07/2024 7:11 AM EDT [facility] Serum 10/07/2024 6:00 AM EDT 10/07/2024 6:39 AM EDT Narrative [facility] - 10/07/2024 7:11 AM EDT The testing method for AFP is a chemiluminescent immunoassay manufactured by [employer] Concentrations of AFP obtained by different assay methods or kits may vary and cannot be used interchangeably. AFP results cannot be interpreted as absolute evidence of the presence or absence of malignant disease. Shila Rivera MD LAB BLOOD ORDERABLES Final Resul t Performing Organization Address [facility] Co de Phone Number [facility] [address] [facility]. [address] * Vancomycin, random (10/07/2024 6:00 AM EDT) Vancomycin Random 21.1 ug/mL 10/07/2024 7:08 AM EDT [facility] Comment:Reference range not established for this test. Plasma 10/07/2024 6:00 AM EDT 10/07/2024 6:39 AM EDT Kiet Gardiner PharmD LAB BLOOD ORDERABLES Final Re sult Performing Organization Address [facility] Co de Phone Number [facility] [address] [facility]. [address] * Osmolality (10/06/2024 2:50 PM EDT) Osmolality, Measured 304 278 - 305 mOsm/kg 10/06/2024 3:49 PM EDT [facility] Serum 10/06/2024 2:50 PM EDT 10/06/2024 2:56 PM EDT Chari Vanegas MD LAB BLOOD ORDERABLES Final Resul t Performing Organization Address [facility] Co de Phone Number [facility] [address] * CT Head WO contrast (10/06/2024 [...] Ur <15 mmol/L 10/06/2024 1:56 PM EDT [facility] Comment:Reference range not established for this test. Urine 10/06/2024 1:25 PM EDT 10/06/2024 1:32 PM EDT us Chari Vanegas MD URINE ORDERABLES Final Result [facility] [address] * Potassium, urine, random (10/06/2024 1:25 PM EDT) Potassium Urine Random 50.0 mmol/L 10/06/2024 1:56 PM EDT [facility] Comment:Reference range not established for this test. Urine 10/06/2024 1:25 PM EDT 10/06/2024 1:32 PM EDT us Chari Vanegas MD URINE ORDERABLES Final Result Performing Organization Address [facility] Co de Phone Number [facility] [address] * Sodium, urine, random (10/06/2024 1:25 PM EDT) Sodium, Ur <10 mmol/L 10/06/2024 1:56 PM EDT [facility] Comment:Reference range not established for this test. Urine 10/06/2024 1:25 PM EDT 10/06/2024 1:32 PM EDT us Chari Vanegas MD URINE ORDERABLES Final Result [facility] [address] * Creatinine, Urine, Random (10/06/2024 1:25 PM EDT) Creatinine, Urine 87.40 mg/dL 10/06/2024 1:56 PM EDT [facility] Comment:Reference range not established for this test. Urine 10/06/2024 1:25 PM EDT 10/06/2024 1:32 PM EDT us Chari Vanegas MD URINE ORDERABLES Final Result [facility] [address] * Osmolality, Urine (10/06/2024 1:25 PM EDT) Osmolality, Ur 386 50 - 1,200 mOsm/kg 10/06/2024 1:55 PM EDT [facility] Urine 10/06/2024 1:25 PM EDT 10/06/2024 1:32 PM EDT us Chari Vanegas MD URINE ORDERABLES Final Result Performing Organization Address City/[facility] Co de Phone Number [facility] [address] * Urine Drug Confirmation (10/06/2024 11:51 AM EDT) BARBITURATES NOT PRESENT 10/09/2024 3:23 PM EDT [facility] Comment:Results were recheck ed. BENZODIAZEPINES PRESENT 3:23 PM EDT [facility] Nordiazepam 3 ng/mL 10/09/2024 3:23 PM EDT [facility] Comment:Results were recheck ed. Temazepam 8 ng/mL 10/09/2024 3:23 PM EDT [facility] Comment:Results were recheck ed. CANNABINOIDS NOT PRESENT 10/09/2024 3:23 PM EDT [facility] OCULAR CARE AIDE STIMULANTS NOT PRESENT 3:23 PM EDT [facility] OPIOID ANALGESICS PRESENT 025 3:23 PM EDT [facility] Oxycodone 329 ng/mL 10/09/2024 3:23 PM EDT [facility] Oxymorphone 61 ng/mL 10/09/2024 3:23 PM EDT [facility] Tramadol >1000 ng/mL 10/09/2024 3:23 PM EDT [facility] OPIOID ANTAGONISTS NOT PRESENT 10/09 3:23 PM EDT [facility] SEDATIVES/MUSCLE RELAXANTS NOT PRESENT 10/09/2024 3:23 PM EDT [facility] TRICYCLIC ANTIDEPRESSANTS NOT PRESENT 10/09/2024 3:23 PM EDT [facility] Urine 10/06/2024 11:5 1 AM EDT 10/06/2024 1:13 PM EDT us Bisi Hernandez DO URINE ORDERABLES Final Result [facility] [address] [place] [address], [facility] * (ABNORMAL) Urine Drug Screen Reflex to Confirmation (10/06/2024 11:51 AM EDT) Amphetamine, 500 ng/mL Cutoff Negative Negative 10/06/2024 1:13 PM EDT [facility] Barbiturates UR, 300 ng/mL Cutoff Negative Negative 10/06/2024 1:13 PM EDT [facility] Buprenorphine, 5 ng/mL Cutoff Negative Negative 10/06/2024 1:13 PM EDT [facility] Benzodiazepines UR, 300 ng/mL Cutoff Negative Negative 10/06/2024 1:13 PM EDT [facility] Cocaine UR, 300 ng/mL Cutoff Negative Negative 10/06/2024 1:13 PM EDT [facility] Methadone, UR, 300 ng/mL Cutoff Negative Negative 10/06/2024 1:13 PM EDT [facility] Opiates UR, 300 ng/mL Cutoff Negative Negative 10/06/2024 1:13 PM EDT [facility] Oxycodone, 100 ng/mL Cutoff Presumptive Positive(A) Negative 10/06/2024 1:13 PM EDT [facility] Tricyclic Antidepressants, 300 ng/mL Cutoff Negative Negative 10/06/2024 1:13 PM EDT [facility] Comment:This test has been d eveloped and its performance characteristics determined by [facility] which is certified under [...] Cutoff Negative Negative 10/06/2024 1:13 PM EDT [facility] Comment:This is a screening method only and may be associated with false positive and/or false negative results. Results are not definitive without additional confirmatory testing by mass spectrometry. Fentanyl, 2 ng/mL Cutoff Negative Negative 10/06/2024 1:13 PM EDT [facility] Comment:This test has been d eveloped and its performance characteristics determined by [facility] which is certified under [...] AM EDT 10/06/2024 11:58 AM EDT Narrative [facility] - 10/06/2024 1:13 PM EDT CONFIRMATION TO FOLLOW [facility] [facility]ella DO URINE ORDERABLES Final Result Performing Organization Address [facility] Co de Phone Number [facility] [address] [facility]. [address] * Chloride, urine, random (10/06/2024 11:51 AM EDT) Chloride, Ur <15 mmol/L 10/06/2024 1:13 PM EDT [facility] Comment:Reference range not established for this test. Urine 10/06/2024 11:5 1 AM EDT 10/06/2024 11:57 AM EDT [facility]ella DO URINE ORDERABLES Final Result Performing Organization Address City/[facility] Co de Phone Number [facility] [address] * Potassium, urine, random (10/06/2024 11:51 AM EDT) Potassium Urine Random 49.0 mmol/L 10/06/2024 1:13 PM EDT [facility] Comment:Reference range not established for this test. Urine 10/06/2024 11:5 1 AM EDT 10/06/2024 11:57 AM EDT [facility]ana maría DO URINE ORDERABLES Final Result [facility] [address] * Sodium, urine, random (10/06/2024 11:51 AM EDT) Sodium, Ur <10 mmol/L 10/06/2024 1:13 PM EDT [facility] Comment:Reference range not established for this test. Urine 10/06/2024 11:5 1 AM EDT 10/06/2024 11:57 AM EDT [employer] DO URINE ORDERABLES Final Result [facility] [address] * Urinalysis w/Rfl to Microscopic (10/06/2024 11:51 AM EDT) Color, UA Yellow Yellow,Straw 10/06/2024 12:25 PM EDT [facility] Clarity, UA Clear Clear 10/06/2024 12:25 PM EDT [facility] Specific Agency, UA 1.014 1.005 - 1.035 10/06/2024 12:25 PM EDT [facility] pH, UA 6.0 5.0 - 8.0 10/06/2024 12:25 PM EDT [facility] Protein, UA Negative Negative mg/dL 10/06/2024 12:25 PM EDT [facility] Glucose, UA Negative Negative mg/dL 10/06/2024 12:25 PM EDT [facility] Ketones, UA Negative Negative mg/dL 10/06/2024 12:25 PM EDT [facility] Bilirubin, UA Negative Negative 10/06/2024 12:25 PM EDT [facility] Blood, UA Negative Negative 10/06/2024 12:25 PM EDT [facility] Nitrite, UA Negative Negative 10/06/2024 12:25 PM EDT [facility] Urobilinogen, UA <2.0 0.2 - 1.9 mg/dL 10/06/2024 12:25 PM EDT [facility] Leukocyte Esterase, UA Negative Negative 10/06/2024 12:25 PM EDT [facility] Urine 10/06/2024 11:5 1 AM EDT 10/06/2024 11:57 AM EDT Narrative [facility] - 10/06/2024 12:25 PM EDT Microscopic testing is not performed when the dipstick is negative for blood, leukocyte, protein and nitrite. us Bisi Hernandez DO URINE ORDERABLES Final Result Performing Organization Address City/[facility]/ZIP Co de Phone Number [facility] [address] * Lactic Acid, STAT (10/06/2024 7:38 AM EDT) Lactate 0.9 0.5 - 2.2 mmol/L 10/06/2024 8:05 AM EDT [facility] Plasma 10/06/2024 7:38 AM EDT 10/06/2024 7:42 AM EDT Chari Vanegas MD LAB BLOOD ORDERABLES Final Resul t [facility] [address] * (ABNORMAL) CBC, STAT (10/06/2024 7:37 AM EDT) WBC 5.6 3.8 - 10.8 10E3/uL 10/06/2024 8:22 AM EDT [facility] RBC 2.50(L) 4.20 - 5.80 10E6/uL 10/06/2024 8:22 AM EDT [facility] Hemoglobin 9.0(L) 13.2 - 17.1 g/dL 10/06/2024 8:22 AM EDT [facility] Hematocrit 25.3(L) 38.5 - 50.0 % 10/06/2024 8:22 AM EDT [facility] MCV 101.2(H) 80.0 - 100.0 fL 10/06/2024 8:22 AM EDT [facility] MCH 36.0(H) 27.0 - 33.0 pg 10/06/2024 8:22 AM EDT [facility] MCHC 35.6 32.0 - 36.0 g/dL 10/06/2024 8:22 AM EDT [facility] RDW 17.7(H) 11.0 - 15.0 % 10/06/2024 8:22 AM EDT [facility] Platelets 52(L) 140 - 400 10E3/uL 10/06/2024 8:22 AM EDT [facility] Comment: Specimen checked for clots. None detected. Slide Reviewed for PLT Clumps. None Seen. MPV 8.2 7.5 - 11.5 fL 10/06/2024 8:22 AM EDT [facility] Whole Blood 10/06/2024 7:37 AM EDT 10/06/2024 7:43 AM EDT Chari Vanegas MD LAB BLOOD ORDERABLES Final Resul t [facility] [address] [place] [address], [facility] * (ABNORMAL) Comprehensive Metabolic Panel (10/06/2024 7:37 AM EDT) Sodium 129(L) 133 - 146 mmol/L 10/06/2024 8:16 AM EDT [facility] Potassium 4.4 3.5 - 5.3 mmol/L 10/06/2024 8:16 AM EDT [facility] Chloride 100 98 - 110 mmol/L 10/06/2024 8:16 AM EDT [facility] CO2 18(L) 21 - 33 mmol/L 10/06/2024 8:16 AM [facility] Anion Gap 11 3 - 16 mmol/L 10/06/2024 8:16 AM EDT [facility] BUN 62(H) 7 - 25 mg/dL 10/06/2024 8:16 AM EDT [facility] Creatinine 3.40(H) 0.60 - 1.30 mg/dL 10/06/2024 8:16 AM EDT [facility] Glucose 98 70 - 100 mg/dL 10/06/2024 8:16 AM EDT [facility] Calcium 9.5 8.6 - 10.3 mg/dL 10/06/2024 8:16 AM T [facility] Total Bilirubin 14.3(H) 0.0 - 1.5 mg/dL 10/06/2024 8:16 AM [facility] AST 57(H) 13 - 39 U/L 10/06/2024 8:16 AM T [facility] ALT 29 7 - 52 U/L 10/06/2024 8:16 AM [facility] Alkaline Phosphatase 158(H) 36 - 125 U/L 10/06/2024 8:16 AM [facility] Total Protein 5.6(L) 6.4 - 8.9 g/dL 10/06/2024 8:16 AM [facility] Albumin 3.6 3.5 - 5.7 g/dL 10/06/2024 8:16 AM [facility] Osmolality, Calculated 286 278 - 305 mOsm/kg 10/06/2024 8:16 AM [facility] EGFR 22 10/06/2024 8:16 AM [facility] Comment:As of 2021, the [...] MD LAB BLOOD ORDERABLES Final Resul t [facility] [address] [id number], [facility] * (ABNORMAL) Venous Blood Gas, Line/Syringe, STAT (10/06/2024 7:37 AM EDT) PH-Line Draw 7.27(L) 7.32 - 7.42 10/06/2024 7:46 AM EDT [facility] PCO2-Line Draw 36(L) 41 - 51 mm Hg 10/06/2024 7:46 AM EDT [facility] PO2-Line Draw 44(H) 25 - 40 mm Hg 10/06/2024 7:46 AM EDT [facility] HCO3-Line Draw 17(L) 24 - 28 mmol/L 10/06/2024 7:46 AM EDT [facility] CO2 Content-Line Draw 18(L) 25 - 29 mmol/L 10/06/2024 7:46 AM EDT [facility] Base Excess-Line Draw -9.6(L) -2.0 - 3.0 mmol/L 10/06/2024 7:46 AM EDT [facility] %HBO2-Line Draw 69.8 40.0 - 70.0 % 10/06/2024 7:46 AM EDT [facility] Carboxyhgb-Ludivina e Draw 0.7 % 10/06/2024 7:46 AM EDT [facility] Comment: CARBOXYHEMOGLOBIN (CO) REFERENCE RANGES: Non-Smokers: <2 % Smokers: <8 % TOXIC: >20 % Methemoglobin- Line Draw 0.3 0.0 - 1.5 % 10/06/2024 7:46 AM EDT [facility] Reduced Hemoglobin-Ludivina e Draw 29.2(H) 0.0 - 5.0 % 10/06/2024 7:46 AM EDT [facility] Venous, Line Draw 10/06/2024 7:37 AM EDT 10/06/2024 7:43 AM EDT Chari Vanegas MD LAB BLOOD ORDERABLES Final Resul t [facility] [address] [place] [address], [facility] * (ABNORMAL) Venous Blood Gas, Line/Syringe, STAT (10/06/2024 4:03 AM EDT) PH-Line Draw 7.21(L) 7.32 - 7.42 10/06/2024 4:16 AM EDT [facility] PCO2-Line Draw 41 41 - 51 mm Hg 10/06/2024 4:16 AM EDT [facility] PO2-Line Draw 32 25 - 40 mm Hg 10/06/2024 4:16 AM EDT [facility] HCO3-Line Draw 16(L) 24 - 28 mmol/L 10/06/2024 4:16 AM EDT [facility] CO2 Content-Line Draw 18(L) 25 - 29 mmol/L 10/06/2024 4:16 AM EDT [facility] Base Excess-Line Draw -10.8(L) -2.0 - 3.0 mmol/L 10/06/2024 4:16 AM EDT [facility] %HBO2-Line Draw 47.5 40.0 - 70.0 % 10/06/2024 4:16 AM EDT [facility] Carboxyhgb-Ludivina e Draw 2.0 % 10/06/2024 4:16 AM EDT [facility] Comment: CARBOXYHEMOGLOBIN (CO) REFERENCE RANGES: Non-Smokers: <2 % Smokers: <8 % TOXIC: >20 % Methemoglobin- Line Draw 0.7 0.0 - 1.5 % 10/06/2024 4:16 AM EDT [facility] Reduced Hemoglobin-Ludivina e Draw 49.8(H) 0.0 - 5.0 % 10/06/2024 4:16 AM EDT [facility] Venous, Line Draw 10/06/2024 4:03 AM EDT 10/06/2024 4:12 AM EDT [employer] LAB BLOOD ORDERABLES Final Resul t Performing Organization Address [facility] de Phone Number [facility] [address] * (ABNORMAL) Protime-INR (10/06/2024 4:01 AM EDT) Protime 21.3(H) 12.1 - 15.1 seconds 10/06/2024 4:40 AM EDT [facility] INR 1.8(H) 0.9 - 1.1 10/06/2024 4:40 AM EDT [facility] Comment: RECOMMENDED THERAPEUTIC RANGES USING INR : Stable oral anticoagulant therapy: 2.0 - 3.0 Mechanical prosthetic heart valve: 2.5 - 3.5 Recurrent acute myocardial infarction: 2.5 - 3.5 Plasma 10/06/2024 4:01 AM EDT 10/06/2024 4:11 AM EDT [employer] LAB BLOOD ORDERABLES Final Resul t Performing Organization Address [facility] Co de Phone Number [facility] [address] * (ABNORMAL) Hepatic Function Panel, AM (10/06/2024 4:01 AM EDT) Total Bilirubin 14.7(H) 0.0 - 1.5 mg/dL 10/06/2024 4:57 AM EDT [facility] Bilirubin, Direct 7.08(H) 0.00 - 0.40 mg/dL 10/06/2024 4:57 AM EDT [facility] AST 60(H) 13 - 39 U/L 10/06/2024 4:57 AM EDT [facility] ALT 31 7 - 52 U/L 10/06/2024 4:57 AM EDT [facility] Alkaline Phosphatase 162(H) 36 - 125 U/L 10/06/2024 4:57 AM EDT [facility] Total Protein 5.3(L) 6.4 - 8.9 g/dL 10/06/2024 4:57 AM EDT [facility] Albumin 3.4(L) 3.5 - 5.7 g/dL 10/06/2024 4:57 AM EDT [facility] Bilirubin, Indirect 7.62(H) 0.00 - 1.10 mg/dL 10/06/2024 4:57 AM EDT [facility] Plasma 10/06/2024 4:01 AM EDT 10/06/2024 4:22 AM EDT [employer] LAB BLOOD ORDERABLES Final Resul t [facility] [address] [facility]. [address] * Magnesium (10/06/2024 4:01 AM EDT) Magnesium 1.8 1.5 - 2.5 mg/dL 10/06/2024 4:57 AM EDT [facility] Plasma 10/06/2024 4:01 AM EDT 10/06/2024 4:22 AM EDT [employer] LAB BLOOD ORDERABLES Final Resul t [facility] [address] [facility]. [address] * (ABNORMAL) Renal Function Panel w/EGFR (10/06/2024 4:01 AM EDT) Sodium 129(L) 133 - 146 mmol/L 10/06/2024 4:57 AM EDT [facility] Potassium 4.7 3.5 - 5.3 mmol/L 10/06/2024 4:57 AM EDT [facility] Chloride 100 98 - 110 mmol/L 10/06/2024 4:57 AM EDT [facility] CO2 16(L) 21 - 33 mmol/L 10/06/2024 4:57 AM EDT [facility] Anion Gap 13 3 - 16 mmol/L 10/06/2024 4:57 AM EDT [facility] BUN 61(H) 7 - 25 mg/dL 10/06/2024 4:57 AM EDT [facility] Creatinine 3.49(H) 0.60 - 1.30 mg/dL 10/06/2024 4:57 AM EDT [facility] Glucose 104(H) 70 - 100 mg/dL 10/06/2024 4:57 AM EDT [facility] Calcium 9.2 8.6 - 10.3 mg/dL 10/06/2024 4:57 AM EDT [facility] Phosphorus 5.3(H) 2.1 - 4.7 mg/dL 10/06/2024 4:57 AM EDT [facility] Albumin 3.4(L) 3.5 - 5.7 g/dL 10/06/2024 4:57 AM EDT [facility] Osmolality, Calculated 286 278 - 305 mOsm/kg 10/06/2024 4:57 AM EDT [facility] EGFR 22 10/06/2024 4:57 AM EDT [facility] Comment:As of 2021, the estimated GFR [...] DO LAB BLOOD ORDERABLES Final Resul t [facility] [address] * (ABNORMAL) CBC (10/06/2024 4:01 AM EDT) WBC 7.6 3.8 - 10.8 10E3/uL 10/06/2024 5:16 AM EDT [facility] RBC 2.77(L) 4.20 - 5.80 10E6/uL 10/06/2024 5:16 AM EDT [facility] Hemoglobin 10.1(L) 13.2 - 17.1 g/dL 10/06/2024 5:16 AM EDT [facility] Hematocrit 28.4(L) 38.5 - 50.0 % 10/06/2024 5:16 AM EDT [facility] MCV 102.4(H) 80.0 - 100.0 fL 10/06/2024 5:16 AM EDT [facility] MCH 36.4(H) 27.0 - 33.0 pg 10/06/2024 5:16 AM EDT [facility] MCHC 35.5 32.0 - 36.0 g/dL 10/06/2024 5:16 AM EDT [facility] RDW 18.0(H) 11.0 - 15.0 % 10/06/2024 5:16 AM EDT [facility] Platelets 53(L) 140 - 400 10E3/uL 10/06/2024 5:16 AM EDT [facility] Comment:Specimen checked for clots. None detected. MPV 8.4 7.5 - 11.5 fL 10/06/2024 5:16 AM EDT [facility] Whole Blood 10/06/2024 4:01 AM EDT 10/06/2024 4:11 AM EDT us Bisi Hernandez DO LAB BLOOD ORDERABLES Final Resul t [facility] [address] * Hepatitis C Antibody (10/06/2024 4:01 AM EDT) Pathologist [facility] HCV Ab Nonreactive Nonreactive 10/06/2024 5:12 AM EDT [facility] Comment:Health Department no tified in accordance with reportable infectious disease guidelines. Serum 10/06/2024 4:01 AM EDT 10/06/2024 4:11 AM EDT [facility] - 10/06/2024 5:12 AM EDT Antibodies to HCV not detected; does not exclude the possibility of exposure to HCV. [employer] LAB BLOOD ORDERABLES Final Resul t Performing Organization Address [facility] Co de Phone Number [facility] [address] [facility]. [address] * (ABNORMAL) Hepatitis B Surface Antibody, Quantitati (10/06/2024 4:01 AM EDT) Hep B S Ab Reactive( A) Nonreactive 10/06/2024 5:16 AM EDT [facility] HBSAB NUMBER 11.50(H) 0.00 - 7.99 mIU/mL 10/06/2024 5:16 AM EDT [facility] Serum 10/06/2024 4:01 AM EDT 10/06/2024 4:11 AM EDT [facility] - 10/06/2024 5:16 AM EDT Individual is considered immune to HBV infection. [employer] LAB BLOOD ORDERABLES Final Resul t Performing Organization Address [facility] Co de Phone Number [facility] [address] [facility]. [address] * Hepatitis B surface antigen (10/06/2024 4:01 AM EDT) Hep B Surface Ag Nonreactive Nonreactive 10/06/2024 5:07 AM EDT [facility] Comment:Health Department no tified in accordance with reportable infectious disease guidelines. Serum 10/06/2024 4:01 AM EDT 10/06/2024 4:11 AM EDT [facility] - 10/06/2024 5:07 AM EDT Specimen is considered negative for HBsAg. [employer] LAB BLOOD ORDERABLES Final Resul t [facility] [address] * Hepatitis A Antibody Total (10/06/2024 4:01 AM EDT) Anti-HAV Total (IgG + IgM) Nonreactive 10/06/2024 5:08 AM EDT [facility] Serum 10/06/2024 4:01 AM EDT 10/06/2024 4:11 AM EDT [facility] - 10/06/2024 5:08 AM EDT HAV antibodies not detected [employer] LAB BLOOD ORDERABLES Final Resul t Performing Organization Address [facility] de Phone Number [facility] [address] [facility]. [address] * Hepatitis A IgM (10/06/2024 4:01 AM EDT) Hep A IgM Nonreactive Nonreactive 10/06/2024 5:02 AM EDT [facility] Serum 10/06/2024 4:01 AM EDT 10/06/2024 4:11 AM EDT [facility] - 10/06/2024 5:02 AM EDT IgM anti-HAV not detected. Does not exclude the possibility of exposure to or infection with HAV. Levels of IgM anti-HAV may be below the cut-off in early infection. [employer] LAB BLOOD ORDERABLES Final Resul t [facility] [address] [facility]. [address] * (ABNORMAL) Salicylate Level (10/06/2024 4:01 AM EDT) Salicylate Lvl <3(L) 10 - 30 mg/dL 10/06/2024 4:58 AM EDT [facility] Serum 10/06/2024 4:01 AM EDT 10/06/2024 4:22 AM EDT [employer] LAB BLOOD ORDERABLES Final Resul t Performing Organization Address [facility] Co de Phone Number [facility] [address] [facility]. [address] * AFP Tumor Marker (10/06/2024 4:01 AM EDT) [facility] AFP-Tumor Marker 2.6 0.0 - 9.0 ng/mL 10/06/2024 4:55 AM EDT [facility] Serum 10/06/2024 4:01 AM EDT 10/06/2024 4:22 AM EDT Narrative [facility] - 10/06/2024 4:55 AM EDT The testing method for AFP is a chemiluminescent immunoassay manufactured by [employer] Concentrations of AFP obtained by different assay methods or kits may vary and cannot be used interchangeably. AFP results cannot be interpreted as absolute evidence of the presence or absence of malignant disease. [employer] LAB BLOOD ORDERABLES Final Resul t Performing Organization Address [facility] Co de Phone Number [facility] [address] [facility]. 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 Only (10/06/2024 3:12 AM EDT) [facility] Adenovirus Not Detected Not Detected 10/06/2024 11:38 PM EDT [facility] Coronavirus (229E,HKU1,NL63,OC 43) Not Detected Not Detected 10/06/2024 11:38 PM EDT [facility] SARS-CoV-2 Not Detected Not Detected 10/06/2024 11:38 PM EDT [facility] Human Metapneumovirus Not Detected Not Detected 10/06/2024 11:38 PM EDT [facility] Human Rhinovirus/Enterov irus Not Detected Not Detected 10/06/2024 11:38 PM EDT [facility] Influenza A Not Detected Not Detected 10/06/2024 11:38 PM EDT [facility] Influenza A H1 Not Detected Not Detected 10/06/2024 11:38 PM EDT [facility] Influenza A/H1-2009 Not Detected Not Detected 10/06/2024 11:38 PM EDT [facility] Influenza A H3 Not Detected Not Detected 10/06/2024 11:38 PM EDT [facility] Influenza B Not Detected Not Detected 10/06/2024 11:38 PM EDT [facility] Parainfluenza 1 Not Detected Not Detected 10/06/2024 11:38 PM EDT [facility] Parainfluenza 2 Not Detected Not Detected 10/06/2024 11:38 PM EDT [facility] Parainfluenza 3 Not Detected Not Detected 10/06/2024 11:38 PM EDT [facility] Parainfluenza 4 Not Detected Not Detected 10/06/2024 11:38 PM EDT [facility] Resp. Syncycial Virus A Not Detected Not Detected 10/06/2024 11:38 PM EDT [facility] Resp. Syncycial Virus B Not Detected Not Detected 10/06/2024 11:38 PM EDT [facility] Chlamydia pneumoniae Not Detected Not Detected 10/06/2024 11:38 PM EDT [facility] Mycoplasma pneumoniae Not Detected Not Detected 10/06/2024 11:38 PM EDT [facility] Comment: The Respiratory Viral-Bacterial Panel is [...] sent to the [facility] in accordance with state requirements. For a fact sheet for healthcare providers, see https://www.fda.gov/media/182372/download. For a fact sheet for patients, see https://www.fda.gov/media/751485/download. Nasopharyngeal Swab NASOPHARYNGEAL SWAB / Unknown 10/06/2024 3:12 AM EDT 10/06/2024 5:41 PM EDT Comment:DIRECTOR OF PAYRO[employer] us Bisi Hernandez DO BODY [employer] ORDERABLE S Final Result Segment [id number] [place] [address], [facility] * X-ray Portable Chest (10/06/2024 [...] 10/06/2024 2:33 AM EDT Bisi Hernandez DO [facility] [facility] ORDERABLE S Final Result * Phosphatidylethanol Confirmation, B (10/06/2024 1:04 AM EDT) PETH 16:0/18.1 (POPETH) <10 Cutoff: 10 ng/mL 10/10/2024 3:11 AM EDT [facility] Comment: Phosphatidylethanol (PEth) homologues result interpretation [...] Cutoff: 10 ng/mL 10/10/2024 3:11 AM EDT [facility] Comment: PEth 16:0/18:2 (PLPEth) Reference ranges are not well established PEth Interpretation Negative. 10/10 3:11 AM EDT [facility] Comment: ADDITIONAL INFORMATION This report is intended for use in clinical monitoring and management of patients. It is not intended for use in employment-related testing. This test was developed and its performance characteristics determined by [facility] in a manner consistent with CLIA requirements. This test has not been cleared or approved by the U.S. Food and Drug Administration. Test Performed by: [facility] [address] [place] [address] Clerical Coordinator: Kathy Ortiz Ph.D.; CLIA# [id number] Whole Blood 10/06/2024 1:04 AM EDT 10/10/2024 3:11 AM EDT [employer] LAB BLOOD ORDERABLES Final Resul t Performing Organization Address City/[facility]/ZIP Co de Phone Number [facility] [address] [facility]. [address] * (ABNORMAL) Acetaminophen Level (10/06/2024 1:04 AM EDT) Acetaminophen Level <10(L) 10 - 30 ug/mL 10/06/2024 2:08 AM EDT [facility] Serum 10/06/2024 1:04 AM EDT 10/06/2024 1:30 AM EDT [employer] LAB BLOOD ORDERABLES Final Resul t Performing Organization Address [facility] Co de Phone Number [facility] [address] * Ethanol, Serum (10/06/2024 1:04 AM EDT) Ethanol <10 0 - 10 mg/dL 10/06/2024 2:08 AM EDT [facility] Serum 10/06/2024 1:04 AM EDT 10/06/2024 1:30 AM EDT [employer] LAB BLOOD ORDERABLES Final Resul t Performing Organization Address City/[facility] Co de Phone Number [facility] [address] [place] [address]. [address] * #2 Blood culture-Peripheral site 2 (10/06/2024 1:04 AM EDT) Culture Result No Growth After 5 Days [facility] Blood BLOOD SPECIMEN / Unknown 10/06/2024 1:04 AM EDT 10/06/2024 4:57 AM EDT Narrative [facility] - 10/11/2024 5:05 AM EDT Suboptimal volume of blood received. Interpret results with caution. Bisi Mary DO MICROBIOLOGY - GENERAL ORDERABLE S Final Result [facility] [address] * #1 Blood culture-Peripheral site 1 (10/06/2024 1:04 AM EDT) Culture Result No Growth After 5 Days [facility] Blood BLOOD SPECIMEN / Unknown 10/06/2024 1:04 AM EDT 10/06/2024 4:57 AM EDT Narrative [facility] - 10/11/2024 5:01 AM EDT Suboptimal volume of blood received. Interpret results with caution. [facility] - GENERAL ORDERABLE S Final Result Performing Organization Address City/[facility]/ZIP Co de Phone Number [facility] [address] * Ammonia (10/06/2024 1:04 AM EDT) Ammonia 77 27 - 90 ug/dL 10/06/2024 2:00 AM EDT [facility] Plasma 10/06/2024 1:04 AM EDT 10/06/2024 1:30 AM EDT [facility] Final Resul t [facility] [address] * Thyroid Function [place] (10/06/2024 1:04 AM EDT) TSH 0.84 0.45 - 4.12 uIU/mL 10/06/2024 2:20 AM EDT [facility] Serum 10/06/2024 1:04 AM EDT 10/06/2024 1:39 AM EDT us [employer] DO LAB BLOOD ORDERABLES Final Resul t Performing Organization Address [facility] Co de Phone Number [facility] [address] [facility]. [address] * (ABNORMAL) Protime-INR (10/06/2024 1:04 AM EDT) Protime 22.8(H) 12.1 - 15.1 seconds 10/06/2024 1:48 AM EDT [facility] INR 1.9(H) 0.9 - 1.1 10/06/2024 1:48 AM EDT [facility] Comment: RECOMMENDED THERAPEUTIC RANGES USING INR : Stable oral anticoagulant therapy: 2.0 - 3.0 Mechanical prosthetic heart valve: 2.5 - 3.5 Recurrent acute myocardial infarction: 2.5 - 3.5 Plasma 10/06/2024 1:04 AM EDT 10/06/2024 1:30 AM EDT us [employer] LAB BLOOD ORDERABLES Final Resul t Performing Organization Address [facility] de Phone Number [facility] [address] * Lactic Acid, STAT (10/06/2024 1:04 AM EDT) Lactate 1.2 0.5 - 2.2 mmol/L 10/06/2024 1:59 AM EDT [facility] Plasma 10/06/2024 1:04 AM EDT 10/06/2024 1:30 AM EDT us [facility] DO LAB BLOOD ORDERABLES Final Resul t Performing Organization Address [facility] Co de Phone Number [facility] [address] * (ABNORMAL) CBC, STAT (10/06/2024 1:04 AM EDT) WBC 7.9 3.8 - 10.8 10E3/uL 10/06/2024 2:36 AM EDT [facility] RBC 2.76(L) 4.20 - 5.80 10E6/uL 10/06/2024 2:36 AM EDT [facility] Hemoglobin 9.9(L) 13.2 - 17.1 g/dL 10/06/2024 2:36 AM EDT [facility] Hematocrit 28.0(L) 38.5 - 50.0 % 10/06/2024 2:36 AM EDT [facility] MCV 101.5(H) 80.0 - 100.0 fL 10/06/2024 2:36 AM EDT [facility] MCH 35.7(H) 27.0 - 33.0 pg 10/06/2024 2:36 AM EDT [facility] MCHC 35.2 32.0 - 36.0 g/dL 10/06/2024 2:36 AM EDT [facility] RDW 17.9(H) 11.0 - 15.0 % 10/06/2024 2:36 AM EDT [facility] Platelets 58(L) 140 - 400 10E3/uL 10/06/2024 2:36 AM EDT [facility] Comment: Specimen checked for clots. None detected. Slide Reviewed for PLT Clumps. None Seen. MPV 8.2 7.5 - 11.5 fL 10/06/2024 2:36 AM EDT [facility] Whole Blood 10/06/2024 1:04 AM EDT 10/06/2024 1:31 AM EDT us Bisi Hernandez DO LAB BLOOD ORDERABLES Final Resul t [facility] [address] [place] [address], [facility] * (ABNORMAL) Comprehensive Metabolic Panel (10/06/2024 1:04 AM EDT) Sodium 127(L) 133 - 146 mmol/L 10/06/2024 2:05 AM EDT [facility] Potassium 4.5 3.5 - 5.3 mmol/L 10/06/2024 2:05 AM [facility] Chloride 99 98 - 110 mmol/L 10/06/2024 2:05 AM [facility] CO2 18(L) 21 - 33 mmol/L 10/06/2024 2:05 AM [facility] Anion Gap 10 3 - 16 mmol/L 10/06/2024 2:05 AM [facility] BUN 59(H) 7 - 25 mg/dL 10/06/2024 2:05 AM [facility] Creatinine 3.54(H) 0.60 - 1.30 mg/dL 10/06/2024 2:05 AM [facility] Glucose 116(H) 70 - 100 mg/dL 10/06/2024 2:05 AM [facility] Calcium 9.0 8.6 - 10.3 mg/dL 10/06/2024 2:05 AM [facility] Total Bilirubin 14.8(H) 0.0 - 1.5 mg/dL 10/06/2024 2:05 AM [facility] AST 61(H) 13 - 39 U/L 10/06/2024 2:05 AM [facility] ALT 33 7 - 52 U/L 10/06/2024 2:05 AM [facility] Alkaline Phosphatase 174(H) 36 - 125 U/L 10/06/2024 2:05 AM [facility] Total Protein 5.2(L) 6.4 - 8.9 g/dL 10/06/2024 2:05 AM [facility] Albumin 3.3(L) 3.5 - 5.7 g/dL 10/06/2024 2:05 AM [facility] Osmolality, Calculated 282 278 - 305 mOsm/kg 10/06/2024 2:05 AM [facility] EGFR 21 10/06/2024 2:05 AM [facility] Comment:As of 2021, the [...] C, Talia M, Olivia [place], Emerita [place], Madeyln [place], Felicia [place], et al. A Unifying Approach for GFR Estimation: Recommendations of the NKF-ASN Task Force on Reassessing the inclusion of Race in Diagnosing Kidney Disease. Am J Kidney Dis. 2020. Plasma 10/06/2024 1:04 AM EDT 10/06/2024 1:40 AM EDT us Bisi Hernandez DO LAB BLOOD ORDERABLES Final Resul t [facility] [address] [place] [address], [facility] documented in this encounter Visit [...] RN)[phone] (Given - Provider: Chelsy Bush RN) 08 (Given - Provider: Anu Wolff RN)1317 (Given [...] Noted Time PHQ-9 Depression Total Score: 17 05/19/2 025 11:00 AM EDT documented as of this encounter Care Teams Er Nurse Relationship Specialty Start Date End Date Enedina Mcguire NP [address] [place], [place] [id number] PCP - General Internal Medicine 10/05/24 documented as of this encounter
--- OUTSIDE RECORDS SUMMARY | 2024-10-10 12:01 | XMS_ITS | Encounter Summary ---
Author Organization [facility] Address [address] [place] [address] Care Team Providers Care Sales Expert Name Role Phone Enedina Mcguire NP Primary Care Provider [phone] Source Comments This information has been disclosed [...] release of HIV test results or diagnoses. [id number] Reason for Visit * Auth/Cert (Routine) Specialty Diagnoses / Procedures Referred By Shane hernadez Referred To Contact General Internal Medicine Diagnoses [facility] [address] [place] [address] Phone: tel: Referral ID Status Reason Start Date Expiration Date Visits Re quested Visits Authorized [id number] 1 1 Encounter Details Date Type Department Care Team (Late st Contact Info) Description 10/10/2024 12:01 PM EDT Anesthesia Event [facility] ENDOSCOPY [address] [place] [address] Cady Bhat MD [address] [address] Bob Leggett MD [address] [place] [facility] [address] [place] [address] Anesthesia Record Procedure Summary Procedure [...] Recorded In the past 12 months has [employer], [employer], or [employer] threatened to shut off services in your [...] any time in the past 12 m [facility], were you homeless or [...] Bhat MD - 10/10/2024 10:15 AM EDT [facility] DEPARTMENT OF ANESTHESIOLOGY PRE-PROCEDURAL EVALUATION Julien [...] Resource Strain: Low Risk (07/09/2024) Received from [facility] Overall Financial Resource Strain (CARDIA) Difficulty [...] Activity: Unknown (07/14/2024) Received from [facility] Exercise Vital Sign Days of Exercise per Week: Patient unable to answer Minutes of Exercise per Session: Not on file Stress: Patient Unable To Answer (07/14/2024) Received from [facility] [place] of Occupational Health - Occupational Stress Questionnaire Feeling of Stress : Patient unable to answer Social Connections: Patient Unable To Answer (07/14/2024) Received from [facility] Social Connection and Isolation Panel [NHANES] Frequency of Communication with Friends and Family: Patient unable to answer Frequency of Social Gatherings with Friends and Family: Patient unable to answer Attends Zoroastrianism Services: Patient unable to answer Active Member [...] in detail. Questions answered. Plan discussed with RESOURCE ANALYST. [1] Allergies Allergen Reactions Adhesive Itching and Rash Tegaderm adhesive on Ivs, pt states its tolerable Duloxetine Other (See Comments) Became Manic documented in this encounter Plan of Treatment Upcoming Encounters Date Type Department Care Team (Late st Contact Info) Description 12/05/2024 8:01 AM EDT Hospital Encounter [facility] ENDOSCOPY [address] [place] [address] Chris Orosco MD [address] [place] [phone] 12/05/2024 8:01 AM EDT - 12/05/2024 8:31 AM EDT Surgery [facility] ENDOSCOPY [address] [place] [address] Chris Orosco MD [address] [place] [phone] EGD Scheduled Procedures Name Priority Associated Diagnoses [...] 10/09/24699 - 10/10/2465810/10/24699 - 10/11/24 0659 Shift 9857-2712 6865-4523 9233-0104 24 Hour Total 8756-2066 8012-5434 0270-0811 24 Hour Total INTAKE [address]. [address] 210 [...] documented as of this encounter Care Teams Sales Expert Relationship Specialty Start Date End Date Enedina Mcguire NP [address] [place] [address] PCP - General Internal Medicine 10/05/24 documented as of this encounter
--- OUTSIDE RECORDS SUMMARY | 2024-10-14 08:42 | XMS_ITS | Encounter Summary ---
Author Organization [facility] Address [facility] [place] [address] Care Team Providers Care Corn Shucker Name Role Phone Enedina Mcguire NP Primary Care Provider [phone] Source Comments This information has been disclosed [...] release of HIV test results or diagnoses. [id number] Health Reason for Visit * Auth/Cert (Routine) Specialty Diagnoses / Procedures Referred By Shane hernadez Referred To Contact General Internal Medicine Diagnoses AMS [facility] [address] [place] [address] Phone: tel: Referral ID Status Reason Start Date Expiration Date Visits Re quested Visits Authorized [id number] 1 1 Encounter Details Date Type Department Care Team (Late st Contact Info) Description 10/14/2024 8:42 AM EDT - 10/14/2024 9:27 AM EDT Surgery [facility] Cardiac Hospice Physician [address] [place] [address] Irving Matta MD [address] [facility] [place] [address] Left Heart Cath Surgery Details [...] the past 12 months has th e [place], gas, oil, or water Crude Area threatened to shut off services in your [...] any time in the past 12 m [facility], were you homeless or living in a chcf (including now)? No 10/06/2024 Yearly Questionnaire Answer [...] Kandy Fuentes - 10/17/2024 10:29 AM EDT [facility] Care Management Discharge Summary Patient [...] post discharge: Not Applicable Kandy BAE [facility] [phone] * William Blount MD - 10/17/2024 8:50 AM EDT [facility] Inpatient Discharge Summary Patient: Julien Gilbert Age: 39 y.o. CSN: [id number] Date of Admission: 10/05/2024 Date of Discharge: [...] Case IDs Date Procedure Surgeon Location Status [id number] 10/10/24 EGD Lino Soto MD ENDOSCOPY Comp [id number] 10/14/24 Left Heart Cath Irving Matta MD [...] at 10/08/2024 1:12 PM EDT US Duplex Vao-Che-Kqooczc Comp Final Result IMPRESSION: ABDOMEN 1. Cirrhotic [...] 90 tablet Refills: 0 naloxone 4 mg/actuation [place] Commonly known as: NARCAN Apply 1 spray [...] Your Medications These medications were sent to [facility] [address] Hours: Sunday - Sunday: 8:00AM - 6:00PM FLUoxetine 20 MG capsule lactulose 10 gram/15 mL solution loratadine 10 mg tablet methocarbamoL 500 MG tablet midodrine 10 MG tablet naloxone 4 mg/actuation [place] oxyCODONE 5 MG immediate release tablet Discharge [...] Order Questions: Select Supplement: Boost-1 kcal/ml supplement ([facility] only) As listed above, low sodium [...] AM EDT 10/17/2024 naloxone (NARCAN) 4 mg/actuation [place] Apply 1 spray in one nostril if [...] Hughes MD - 10/17/2024 10:23 AM EDT [facility] PROGRESS NOTE Name: Julien Gilbert CSN: [id number] Consulted by: Chelsy Lerner MD Reason for [...] Yes Past Week naloxone (NARCAN) 4 mg/actuation [place] Apply 1 spray in one nostril if [...] nucleated cells, <2000 RBCs 10% Polynuclear, 90% [place] nuc. There were initial reports of gram [...] of chemical dependency treatment as outpatient. - [facility] with no obstructive coronary disease - Psych eval for PTSD With recommendation of sertraline - Given his renal dysfunction, will plan to list for [facility] when he qualifies on 10/22/2024. Labs next week - Plan for d/c today Bobby Sidhu MD [facility] [employer] [facility] Please see the body of the resident, [...] remains <30 until October 22. Waiting for [facility] today. ASSESSMENT NADIYA on CKD, last [...] Staff. Jeremiah Gamino PGY4 Nephrology. Pager no. [phone] Chief Complaint No chief complaint on file. [...] Hypertension, Other hyperlipidemia (07/26/2024), Renal cell carcinoma ([facility]), Thrombocytopenia ([facility]), and Thyroid disease. he has a [...] at 10/08/2024 1:12 PM EDT US Duplex Ugp-Wqc-Fwcmvji Comp Final Result IMPRESSION: ABDOMEN 1. Cirrhotic [...] no head imaging has been performed at [facility]. -CT Head w/o contrast -Imaging [...] Order Questions: Select Supplement: Boost-1 kcal/ml supplement ([facility] only) Code Status: Full Code Signed: [...] another specialty or practice, other licensed professional (PT/OT/MARKET RESEARCH CONSULTANT/RT), or a non-medical community professional: Hepatology, [...] due to positioning during LHC on 10/14. [place] the worst in CVR, but has improved [...] Kumar, DMITRY - 10/16/2024 1:08 PM EDT [facility] Medical Nutrition Therapy Follow-Up Diet Order/Nutrition Support: Regular diet, Boost TID - Vanilla preference Pertinent Information: This is a 39 year old male history of ETOH cirrhosis d/b HE, ascites with SBP who is admitted for AMS. Precipitant of his HE likely SBP. Diagnostic paracentesis at OSH reportedly showed 61 nucleated cells, <2000 RBCs 10% Polynuclear, 90% [place] nuc. There were initial reports of gram [...] Based on CBW of 119.5 kg Kcals/day: 7290-2510 (18-21 kcals/kg) Protein g/day: 119-143 (1-1.2 g/kg) [...] Kumar RD, LD Clinical Dietitian Contact via [employer] * Jerad Hughes MD - 10/16/2024 11:03 AM EDT [facility] PROGRESS NOTE Name: Julien Gilbert CSN: [id number] Consulted by: Chelsy Lerner MD Reason for [...] nucleated cells, <2000 RBCs 10% Polynuclear, 90% [place] nuc. There were initial reports of gram [...] of chemical dependency treatment as outpatient. - [facility] with no obstructive coronary disease - Psych eval for PTSD With recommendation of sertraline - Given his renal dysfunction, will plan to list for [facility] when he qualifies on 10/22/2024. - Will follow Bobby Sidhu MD [facility] [facility] Please see the body of the resident, [...] remains <30 until October 22. Waiting for [facility] today. ASSESSMENT NADIYA on CKD, last [...] COMMENT on 10/08/2024 Iron%- Iron replete PLAN -[facility] yesterday- patient remains at risk of contrast related injury on top of exisiting NADIYA for 24-48 hrs after contrast load. -He is volume overloaded -patient needs to follow up closely with nephrology after discharge Thank you for allowing us to participate in this patient's care. Discussed with Consult Staff. Jeremiah Gamino PGY4 Nephrology. Pager no. [phone] Chief Complaint No chief complaint on file. [...] at 10/08/2024 1:12 PM EDT US Duplex Caa-Ycb-Uesmexm Comp Final Result IMPRESSION: ABDOMEN 1. Cirrhotic [...] not tolerate Stress ECHO on 10/09 - [facility] today -Per GI recs, started on [...] no head imaging has been performed at [facility]. -CT Head w/o contrast -Imaging [...] Order Questions: Select Supplement: Boost-1 kcal/ml supplement ([facility] only) Code Status: Full Code Signed: [...] another specialty or practice, other licensed professional (PT/OT/MARKET RESEARCH CONSULTANT/RT), or a non-medical community professional: Hepatology, [...] due to positioning during LHC on 10/14. [place] the worst in CVR, but has improved [...] Hughes MD - 10/15/2024 10:15 AM EDT [facility] PROGRESS NOTE Name: Julien Gilbert CSN: [id number] Consulted by: Chelsy Lerner MD Reason for [...] nucleated cells, <2000 RBCs 10% Polynuclear, 90% [place] nuc. There were initial reports of gram [...] of chemical dependency treatment as outpatient. - [facility] yesterday with no obstructive coronary disease - Psych eval for PTSD and medical management - Given his renal dysfunction, will plan to list for [facility] when he qualifies on 10/22/2024. - Will follow Bobby Sidhu MD [facility] [facility] Please see the body of the resident, [...] Quan MD - 10/14/2024 2:34 PM EDT [facility] Department of Cardiovascular Health and Diseases Cardiology [...] remains <30 until October 22. Waiting for [facility] today. ASSESSMENT NADIYA on CKD, last discharge creatinine 2.4 Baseline Creatinine 1.2-1.3, HRS- NADIYA as no response to holding lasix and albumin UA bland Urine lytes <10/< 15/ 50 Holding lasix give [facility] today Renal Function: Recent Labs 10/14/24 [...] Staff. Jeremiah Gamino PGY4 Nephrology. Pager no. [phone] Chief Complaint No chief complaint on file. [...] is Acute kidney injury superimposed on CKD ([facility]). No acute events overnight. Pt with [...] at 10/08/2024 1:12 PM EDT US Duplex Qfm-Zgc-Mricarg Comp Final Result IMPRESSION: ABDOMEN 1. Cirrhotic [...] not tolerate Stress ECHO on 10/09 - [facility] today -Per GI recs, started on [...] no head imaging has been performed at [facility]. -CT Head w/o contrast -Imaging [...] never required dialysis. Patient is going for [facility] today and will receive contrast, okay [...] Order Questions: Select Supplement: Boost-1 kcal/ml supplement ([facility] only) Code Status: Full Code Signed: [...] another specialty or practice, other licensed professional (PT/OT/MARKET RESEARCH CONSULTANT/RT), or a non-medical community professional: Hepatology, [...] Hughes MD - 10/14/2024 7:42 AM EDT [facility] PROGRESS NOTE Name: Julien Gilbert CSN: [id number] Consulted by: Chelsy Lerner MD Reason for [...] nucleated cells, <2000 RBCs 10% Polynuclear, 90% [place] nuc. There were initial reports of gram [...] eval ongoing. Transplant work up ongoing - [facility] today - Transplant nephrology following for [...] - Will follow Bobby Sidhu MD [facility] Please see the body of the resident, [...] Staff. Jeremiah Gamino PGY4 Nephrology. Pager no. [phone] Chief Complaint No chief complaint on file. [...] Hughes MD - 10/13/2024 12:33 PM EDT [facility] PROGRESS NOTE Name: Julien Gilbert CSN: [id number] Consulted by: Fouzia Rene MD Reason for [...] nucleated cells, <2000 RBCs 10% Polynuclear, 90% [place] nuc. There were initial reports of gram [...] eval ongoing. Transplant work up ongoing - [facility] today - Transplant nephrology following for [...] - Will follow Bobby Sidhu MD [facility] Please see the body of the resident, [...] no psychomotor abnormalities Cognition: short term and retirement memory intact Attitude: cooperative Affect: full range [...] Fabian, RD - 10/13/2024 10:49 AM EDT [facility] Medical Nutrition Therapy Reason(s) for Completion: Nutrition [...] Order Questions: Select Supplement: Boost-1 kcal/ml supplement ([facility] only) Pertinent Information: Julien Gilbert is a 39 y.o. Male admitted for Acute kidney injury superimposedon CKD ([facility]) Pt noted to have waxing and [...] kg) Body mass index is 32.07 kg/m??. Hiram Body Weight: 202 lbs (91.8 kg) +/- 10% Weight History: Wt Readings from Last 10 Encounters: 10/10/24 (!) 263 lb 8 oz (119.5 kg) 09/05/24 (!) 262 lb 9.6 oz (119.1 kg) 09/02/24 (!) 258 lb (117 kg) 08/17/24 (!) 242 lb 11.2 oz (110.1 kg) 07/28/24 (!) 245 lb (111.1 kg) Estimated Nutrition Needs: Based on CBW of 119.5 kg Kcals/day: 5074-1125 (18-21 kcals/kg) Protein g/day: 119-143 (1-1-2 g/kg) [...] Dietitian - Solid Organ Transplant Contact via [employer] Chat * Eileen Schroeder MD, PhD - 10/13/2024 8:19 AM EDT Department of Internal Medicine Daily Progress Note Chief Complaint / Reason for Follow-Up Julien Gilbert is a 39 y.o. male on hospital day 8. The principal reason for today's follow up visit is Acute kidney injury superimposed on CKD ([facility]). NAEON Pt felt well this AM. [...] at 10/08/2024 1:12 PM EDT US Duplex Let-Tml-Rhcvodj Comp Final Result IMPRESSION: ABDOMEN 1. Cirrhotic [...] no head imaging has been performed at [facility]. -CT Head w/o contrast -Imaging [...] Order Questions: Select Supplement: Boost-1 kcal/ml supplement ([facility] only) Code Status: Full Code Signed: [...] I reviewed the documentation by the medical engineer steam and agree as documented. Any additions or [...] was non-diagnostic due to hypotension. Plan for [facility] today, but now moved to tomorrow. [...] another specialty or practice, other licensed professional (PT/OT/MARKET RESEARCH CONSULTANT/RT), or a non-medical community professional: Nephrology, [...] Acute kidney injury superimposed on CKD (CMS-HCC). KARENEMERILNE Pt felt well this AM. A&O x [...] at 10/08/2024 1:12 PM EDT US Duplex Gtg-Aja-Knvtkzz Comp Final Result IMPRESSION: ABDOMEN 1. Cirrhotic [...] no head imaging has been performed at [facility]. -CT Head w/o contrast -Imaging [...] Order Questions: Select Supplement: Boost-1 kcal/ml supplement ([facility] only) Code Status: Full Code Signed: [...] I reviewed the documentation by the medical engineer steam and agree as documented. Any additions or clarifications are listed below. Daily plan was discussed with patient at bedside and questions addressed. Patient ID: Julien Gilbert is a 39 y.o. male currently admitted for Acute kidney injury superimposed on CKD ([facility]) Supplemental History/ ROS: No acute events [...] for Acute kidney injury superimposed on CKD ([facility]) Active Problems: NADIYA (acute kidney injury) on CKD ([facility]): Hepatorenal syndrome. Appreciate nephrology consult. S/p albumin X3. baseline creatinine presumed to be around 2.5. Creatinine improved from its peak and may be now fluctuating around a new baseline. We will continue to monitor. Spontaneous Bacterial Peritonitis ([facility]): He remains afebrile and vital signs have been stable. Received 4 days of vancomycin, Ceftriaxone x 5d. - Restart Cipro prophylaxis Anemia: Multiple contributors. S/p 1 unit PRBC. Hemoglobin responded appropriately and remained stable. Will continue to monitor. Metabolic encephalopathy: Resolved. Likely related to combination of hepatic, metabolic, and possibly infectious insults. - Continue home lactulose and rifaximin Decompensated cirrhosis ([facility]): Appreciate hepatology consult. He has started [...] another specialty or practice, other licensed professional (PT/OT/MARKET RESEARCH CONSULTANT/RT), or a non-medical community professional: Nephrology, [...] tid. cardiac workup pre txp. pLan for [facility] Sunday Liver transplant workup per GI/ [...] 706.9 (H) 10/08/2024 No results found for: [id number] , FOLATE Lab Results Component Value Date [...] CRUR No results found for: MICROALBUR , [id number] In addition to the above an extensive [...] 4.6 10/12/2024 Lab Results Component Value Date KRDN88T 7.1 (L) 10/08/2024 PLAN Monitor renal panel [...] AM Colten Huertas MD, KISHOR LIN, CATHYF movie actor Div. of Nephrology [facility] E-mail: [email or web address] This note was completely edited, written [...] Rene MD Interval hx No issues. Pending [facility]. Assessment: Renal Function: Cr: 2.77 Bun: [...] 706.9 (H) 10/08/2024 No results found for: VCHSBSMF22 , FOLATE Lab Results Component Value Date [...] CRUR No results found for: MICROALBUR , [id number] In addition to the above an extensive [...] 3.5 10/11/2024 Lab Results Component Value Date SVKD80K 7.1 (L) 10/08/2024 PLAN Monitor renal panel No indication for dialysis Pt seen by TxP neph for [facility] assessment -not a candidate for kidney transplant yet Patient is being worked up for liver transplant Will continue to monitor renal panel closely Left heart cath planned for Francisco Javier Patient is aware about implications of contrast [...] AM Colten Huertas MD, KISHOR LIN FNKF movie actor Div. of Nephrology [facility] E-mail: [email or web address] This note was completely edited, written [...] is Acute kidney injury superimposed on CKD ([facility]). NAEON Pt felt much better today. [...] at 10/08/2024 1:12 PM EDT US Duplex Nye-Afj-Vpkznpi Comp Final Result IMPRESSION: ABDOMEN 1. Cirrhotic [...] from outside facility. Will engage with them daily([phone]. Ask to speak to a tech) about [...] no head imaging has been performed at [facility]. -CT Head w/o contrast -Imaging [...] Order Questions: Select Supplement: Boost-1 kcal/ml supplement ([facility] only) Code Status: Full Code Signed: [...] I reviewed the documentation by the medical engineer steam and agree as documented. 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 Not a candidate for terlipressin per [...] Ignacio Queen MD Renal Fellow Pager # [phone] Chief Complaint No chief complaint on file. [...] PHOS -- < > 3.5 3.4 3.3 WHQG26A 7.1* -- -- -- -- < > = values in this interval not displayed. Lab Results Component Value Date IRON 81 10/08/2024 TIBC SEE COMMENT 10/08/2024 FERRITIN 706.9 (H) 10/08/2024 No results found for: [id number] , FOLATE Lab Results Component Value Date [...] CRUR No results found for: MICROALBUR , [id number] In addition to the above an extensive [...] 3.3 10/10/2024 Lab Results Component Value Date RHBS05Z 7.1 (L) 10/08/2024 PLAN Continue IV albumin [...] AM Colten Huertas MD, DELIA, KISHOR, FNKF movie actor Div. of Nephrology [facility] E-mail: [email or web address] This note was completely edited, written [...] to follow pt while pt is at [facility]. * Jodi Ortiz PharmD - 10/10/2024 10:27 AM EDT Clinical Pharmacy Service: Vancomycin Consult Progress Note Patient has been transitioned off of vancomycin therapy per team notes and orders. Pharmacy will sign-off at this time, please do not hesitate to consult again as needs arise. Thank you for involving pharmacy in the care of this patient. Jodi Ortiz PharmD Clinical Therapeutic Strategy Lead, Internal Medicine Preferred contact: [facility] [employer] [facility] Clinical Yqnylpg-Iv-Xtdg Pager: [phone] October 10, 2024 10:27 AM Laboratory Data [...] 10/07/2024 10:50 PM Giardia Cryptosporidium Antigens Final [id number] 10/07/2024 10:50 PM Ova and Parasite Comprehensive w/ Giardia/Crypto Final [id number] Feces 10/06/2024 1:04 AM #2 Blood culture-Peripheral site 2 Preliminary [id number] Peripheral 10/06/2024 1:04 AM #1 Blood culture-Peripheral site 1 Preliminary [id number] Peripheral Pharmacokinetics Lab Results (Last 7 days) Today 0523 Yesterday 10/08 0536 Vanc Rdm 16.4 11.0 16.0 * Gerri Peterson MD - 10/10/2024 10:09 AM EDT [facility] PROGRESS NOTE Name: Julien Gilbert CSN: [id number] Consulted by: Fouzia Rene MD Reason for [...] nucleated cells, <2000 RBCs 10% Polynuclear, 90% [place] nuc. Per OSH reports, ascitic fluid cultures [...] to achieving target HR. -cardiology consult for [facility] on Sunday - Transplant nephrology following [...] from the original note were not included. [facility] Clinical Pharmacy Service: Vancomycin Monitoring [...] in sodium chloride 0.9 % 250 mL Cwas5Ona (Completed) 1,500 mg Once 10/09/2024 10/09/2024 Admin Instructions: Contact pharmacy if there is a question/concern of whether vancomycin should begiven based on serum drug levels. Use Uere4Bnu Adapter - Mix Thoroughly Before Administration Route: Intravenous vancomycin (VANCOCIN) 1,500 mg in sodium chloride 0.9 % 250 mL Mtqp0Xzo 1,500 mg Once 10/10/2024 10/11/2024 Admin Instructions: Contact pharmacy if there is a question/concern of whether vancomycin should begiven based on serum drug levels. Use Gswy4Nli Adapter - Mix Thoroughly Before Administration Route: [...] in sodium chloride 0.9 % 250 mL Lodl5Xaq 1,500 mg 166.7 mL/hr 10/08/24 1259 New Bag vancomycin (VANCOCIN) 1,000 mg in sodium chloride 0.9 % 250 mL Mmub5Mrn 1,000 mg 250 mL/hr --Objective Data-- Vitals: [...] 53 53 54 Creatinine 2.85 2.89 3.04 Hiram body weight: 86.8 kg (191 lb 5.7 oz) Adjusted ideal body weight: 99.9 kg (220 lb 3.5 oz) Estimated CrCl: ~35-45 mL/min --Cultures-- Microbiology Results Date and Time Order Name Sensitivity Status Organisms Specimen ID Source 10/07/2024 10:50 PM Giardia Cryptosporidium Antigens Final [id number] 10/07/2024 10:50 PM Ova and Parasite Comprehensive w/ Giardia/Crypto Final [id number] Feces 10/06/2024 1:04 AM #2 Blood culture-Peripheral site 2 Preliminary [id number] Peripheral 10/06/2024 1:04 AM #1 Blood culture-Peripheral site 1 Preliminary [id number] Peripheral --Vancomycin Concentrations-- Lab Results (Last 7 [...] for the consult. Jodi Ortiz PharmD Clinical Therapeutic Strategy Lead, Internal Medicine Preferred contact: [employer] Clinical Kzquubg-Zg-Dyaf Pager: [phone] October 10, 2024 9:13 AM * Eileen Schroeder MD, PhD - 10/10/2024 8:17 AM EDT Department of Internal Medicine Daily Progress Note Chief Complaint / Reason for Follow-Up Julien Gilbert is a 39 y.o. male on hospital day 5. The principal reason for today's follow up visit is Acute kidney injury superimposed on CKD ([facility]). CORT[place]ON Pt was very conversational today. A&O [...] at 10/08/2024 1:12 PM EDT US Duplex Hnm-Oht-Gqzfbgd Comp Final Result IMPRESSION: ABDOMEN 1. Cirrhotic [...] from outside facility. Will engage with them daily([phone]. Ask to speak to a tech) about [...] no head imaging has been performed at [facility]. -CT Head w/o contrast -Imaging [...] Order Questions: Select Supplement: Boost-1 kcal/ml supplement ([facility] only) Code Status: Full Code Signed: [...] I reviewed the documentation by the medical engineer steam and agree as documented. Any additions or clarifications are listed below. Daily plan was discussed with patient at bedside and questions addressed. Patient ID: Julien Gilbetr is a 39 y.o. male currently admitted for Acute kidney injury superimposed on CKD ([facility]) Supplemental History/ ROS: No acute events [...] for Acute kidney injury superimposed on CKD ([facility]) Active Problems: Spontaneous Bacterial Peritonitis ([facility]): Cultures from OSH were reported as [...] Continue home lactulose and rifaximin Decompensated cirrhosis ([facility]): Appreciate hepatology consult. He has started [...] IR. NADIYA (acute kidney injury) on CKD ([facility]): Appreciate nephrology consult. 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 Considering para today, cardiac workup pre txp Liver transplant workup per GI/ Primary team, considering for [facility], seen by renal transplant team Thank you for allowing us to participate in this patient's care. Discussed with Consult Staff. Ignacio Queen MD Renal Fellow Pager # [phone] Chief Complaint No chief complaint on file. [...] 9.0 9.3 PHOS -- 3.5 3.5 3.4 EACA73N 7.1* -- -- -- Lab Results Component Value Date IRON 81 10/08/2024 TIBC SEE COMMENT 10/08/2024 FERRITIN 706.9 (H) 10/08/2024 No results found for: [id number] , FOLATE Lab Results Component Value Date [...] CRUR No results found for: MICROALBUR , [id number] In addition to the above an extensive [...] 3.4 10/09/2024 Lab Results Component Value Date VIJN27M 7.1 (L) 10/08/2024 PLAN Continue IV albumin [...] PM Colten Huertas MD, KISHOR LIN, CATHYF movie actor Div. of Nephrology [facility] E-mail: [email or web address] This note was completely edited, written [...] Peterson MD - 10/09/2024 1:07 PM EDT [facility] HEPAT[facility] PROGRESS NOTE Name: Julien Gilbert CSN: [id number] Consulted by: Fouzia Rene MD Reason for [...] nucleated cells, <2000 RBCs 10% Polynuclear, 90% Crowley nuc. Fluid cultures reportedly grew gram + [...] from the original note were not included. [facility] Clinical Pharmacy Service: Vancomycin Monitoring [...] in sodium chloride 0.9 % 250 mL Nwzi7Cja (Completed) 1,000 mg Once 10/08/2024 10/08/2024 Admin Instructions: Contact pharmacy if there is a question/concern of whether vancomycin should begiven based on serum drug levels. Use Jtch5Xyd Adapter - Mix Thoroughly Before Administration Route: Intravenous vancomycin (VANCOCIN) 1,500 mg in sodium chloride 0.9 % 250 mL Pkbz6Kma 1,500 mg Once 10/09/2024 10/10/2024 Admin Instructions: Contact pharmacy if there is a question/concern of whether vancomycin should begiven based on serum drug levels. Use Kibb2Hka Adapter - Mix Thoroughly Before Administration Route: [...] in sodium chloride 0.9 % 250 mL Ovqn6Xtx 1,000 mg 250 mL/hr 10/06/24 1413 New [...] 10/07/2024 10:50 PM Giardia Cryptosporidium Antigens Final [id number] 10/07/2024 10:50 PM Ova and Parasite Comprehensive w/ Giardia/Crypto Final [id number] Feces 10/06/2024 1:04 AM #2 Blood culture-Peripheral site 2 Preliminary [id number] Peripheral 10/06/2024 1:04 AM #1 Blood culture-Peripheral site 1 Preliminary [id number] Peripheral --Vancomycin Concentrations-- Lab Results (Last 7 [...] for the consult. Jodi Ortiz PharmD Clinical Therapeutic Strategy Lead, Internal Medicine Preferred contact: [facility] Fnkevpo-Nw-Wfeh Pager: [phone] October 09, 2024 8:29 AM * Eileen Schroeder MD, PhD - 10/09/2024 8:00 AM EDT Department of Internal Medicine Daily Progress Note Chief Complaint / Reason for Follow-Up Julien Gilbert is a 39 y.o. male on hospital day 4. The principal reason for today's follow up visit is Acute kidney injury superimposed on CKD ([facility]). DREW and father at bedside Pt [...] at 10/08/2024 1:12 PM EDT US Duplex Trs-Nkm-Ebtezfd Comp Final Result IMPRESSION: ABDOMEN 1. Cirrhotic [...] from outside facility. Will engage with them daily([phone]. Ask to speak to a tech) about [...] no head imaging has been performed at [facility]. -CT Head w/o contrast -Imaging [...] Order Questions: Select Supplement: Boost-1 kcal/ml supplement ([facility] only) Code Status: Full Code Signed: [...] I reviewed the documentation by the medical engineer steam and agree as documented. Any additions or clarifications are listed below. Daily plan was discussed with patient at bedside and questions addressed. Patient ID: Julien Gilbert is a 39 y.o. male currently admitted for Acute kidney injury superimposed on CKD ([facility]) Supplemental History/ ROS: No acute events [...] for Acute kidney injury superimposed on CKD ([facility]) Active Problems: Anemia: S/p 1 unit PRBC from yesterday. Hemoglobin responded appropriately and remained stable. Will continue to monitor. Metabolic encephalopathy: Mostly resolved. Likely related to combination of hepatic, metabolic, andpossibly infectious insults. - Continue home lactulose and rifaximin Spontaneous Bacterial Peritonitis ([facility]): Cultures from OSH are growing gram- positive organisms.We continue to await speciation. He remains afebrile and vital signs have been stable. - Continue vancomycin and ceftriaxone for now. - Will follow-up on speciation and sensitivities. Decompensated cirrhosis ([facility]): Appreciate hepatology consult. He has started his transplant evaluation and will continue while inpatient. - MELD labs daily - Continue home regimen with ursodiol, rifaximin and lactulose - Start midodrine 3 times daily - EGD postponed until tomorrow -Planning for stress test today - Due for therapeutic paracentesis in the next day or so. NADIYA (acute kidney injury) on CKD ([facility]): Appreciate nephrology consult. Likely due to hepatorenal syndrome. Now s/p albumin X3. baseline creatinine presumed to be around 2.5. Creatinine slightly lower today. We will continue to monitor. Electrolyte derangements: Replete as needed Neck Pain: He has a history of cervical surgery. Continue oxycodone as needed for pain. Continue tomonitor. Principal Problem: Acute kidney injury superimposed on CKD ([facility]) Active Problems: Decompensated cirrhosis ([facility]) Metabolic encephalopathy Thrombocytopenia ([facility]) Renal mass, left Metabolic acidosis with normal anion gap and bicarbonate losses GERD (gastroesophageal reflux disease) Anemia SBP (spontaneous bacterial peritonitis) ([facility]) Neck pain with history of cervical spinal [...] another specialty or practice, other licensed professional (PT/OT/MARKET RESEARCH CONSULTANT/RT), or a non-medical community professional: Nephrology, Hepatology Labs reviewed (1 pt each): CBC, CMP, INR & other daily labs Review of notes from a different specialty or different practice: Nephrology, Anesthesiology hepatology, * Gerri Peterson MD - 10/08/2024 1:40 PM EDT [facility] PROGRESS NOTE Name: Julien Gilbert CSN: [id number] Consulted by: Fouzia Rene MD Reason for [...] nucleated cells, <2000 RBCs 10% Polynuclear, 90% Crowley nuc. Fluid cultures reportedly grew gram + [...] 5:17 PM EDT Associated attestation - Lino Stoo MD - 10/08/2024 5:17 PM EDT Attending [...] disease (ESRD) patient in a hospital based, [facility]-hospital based, or home setting. -At [...] have discussed this plan with the dental scheduling coordinator and the liver transplant team. Cosigned [...] from the original note were not included. [facility] Clinical Pharmacy Service: Vancomycin Monitoring [...] in sodium chloride 0.9 % 250 mL Oigd6Yfo 1,000 mg Once 10/08/2024 10/09/2024 Admin Instructions: Contact pharmacy if there is a question/concern of whether vancomycin should begiven based on serum drug levels. Use Ihee4Mtl Adapter - Mix Thoroughly Before Administration Route: [...] 10/07/2024 10:50 PM Giardia Cryptosporidium Antigens Final [id number] 10/07/2024 10:50 PM Ova and Parasite Comprehensive w/ Giardia/Crypto In process [id number] Feces 10/06/2024 1:04 AM #2 Blood culture-Peripheral site 2 Preliminary [id number] Peripheral 10/06/2024 1:04 AM #1 Blood culture-Peripheral site 1 Preliminary [id number] Peripheral --Vancomycin Concentrations-- Lab Results (Last 7 [...] for the consult. Jodi Ortiz, PharmD Clinical Therapeutic Strategy Lead, Internal Medicine Preferred contact: [facility] Kzftcjy-Fo-Kfyn Pager: [phone] October 08, 2024 9:13 AM * Eileen [...] FREET4 0.74 09/03/2024 Diagnostic Studies US Duplex Ege-Wjk-Ufzfvao Comp Final Result IMPRESSION: ABDOMEN 1. Cirrhotic [...] no head imaging has been performed at [facility]. -CT Head w/o contrast -Imaging [...] Order Questions: Select Supplement: Boost-1 kcal/ml supplement ([facility] only) Code Status: Full Code Signed: [...] I reviewed the documentation by the medical engineer steam and agree as documented. Any additions or [...] tomorrow NADIYA (acute kidney injury) on CKD ([facility]): Appreciate nephrology consult. Likely has hepatorenal [...] Problem: Metabolic encephalopathy Active Problems: Decompensated cirrhosis ([facility]) Acute kidney injury superimposed on CKD ([facility]) Thrombocytopenia ([facility]) Renal mass, left Metabolic acidosis with normal anion gap and bicarbonate losses GERD (gastroesophageal reflux disease) Anemia SBP (spontaneous bacterial peritonitis) ([facility]) Neck pain with history of cervical spinal [...] another specialty or practice, other licensed professional (PT/OT/MARKET RESEARCH CONSULTANT/RT), or a non-medical community professional: Nephrology, [...] Strictly monitor urine output No 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 Discussed with Consult Staff. Ignacio Queen MD Renal Fellow Pager # [phone] Chief Complaint No chief complaint on file. [...] TIBC , FERRITIN No results found for: [id number] , FOLATE Lab Results Component Value Date [...] <15 No results found for: MICROALBUR , [id number] In addition to the above an extensive [...] 4.0 10/08/2024 Lab Results Component Value Date UBAJ34J 7.1 (L) 10/08/2024 PLAN Continue IV albumin [...] AM Colten Huertas MD, DELIA, KISHOR, FNKF movie actor Div. of Nephrology [facility] E-mail: [email or web address] This note was completely edited, written [...] from the original note were not included. [facility] Clinical Pharmacy Service: Vancomycin Monitoring [...] AM #2 Blood culture-Peripheral site 2 Preliminary [id number] Peripheral 10/06/2024 1:04 AM #1 Blood culture-Peripheral site 1 Preliminary [id number] Peripheral --Vancomycin Concentrations-- Lab Results (Last 7 [...] for the consult. Jodi Ortiz PharmD Clinical Therapeutic Strategy Lead, Internal Medicine Preferred contact: [facility] Jfrbwok-La-Wsol Pager: [phone] October 07, 2024 5:01 PM * Yamile Paige, PT - 10/07/2024 11:45 AM EDT Physical Therapy Initial Assessment and Discharge Name: Julien Gilbert : 1985 Attending Physician: Fuozia Rene MD Admission Diagnosis: AMS Date: 10/07/2024 [...] Peterson MD - 10/07/2024 11:33 AM EDT [facility] PROGRESS NOTE Name: Julien Gilbert CSN: [id number] Consulted by: Fouzia Rene MD Reason for [...] nucleated cells, <2000 RBCs 10% Polynuclear, 90% Crowley nuc. Fluid cultures reportedly grewgram + rods. [...] selection meeting and clearance by social media content manager. 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 Discussed with Consult Staff. Ignacio Queen MD Renal Fellow Pager # [phone] Chief Complaint No chief complaint on file. [...] TIBC , FERRITIN No results found for: [id number] , FOLATE Lab Results Component Value Date [...] <15 No results found for: MICROALBUR , [id number] In addition to the above an extensive [...] PHOS 4.2 10/07/2024 No results found for: ADDF25J PLAN Continue IV albumin Monitor renal panel [...] AM Colten Huertas MD, KISHOR LIN FNKF movie actor Div. of Nephrology [facility] E-mail: [email or web address] * Carmen Bernal, OT - 10/07/2024 11:09 AM EDT Occupational Therapy Initial Assessment and Discharge Name: Julien Gilbert : 1985 Attending Physician: Fouzia Rene MD Admission Diagnosis: AMS Date: 10/07/2024 Room: [facility] Reviewed Pertinent hospital course: Yes [...] at 10/06/2024 2:33 AM EDT US Duplex Gsl-Ebk-Plhiffs Comp (Results Pending) US Abdomen Complete (Results [...] no head imaging has been performed at [facility]. -CT Head w/o contrast -Imaging [...] Order Questions: Select Supplement: Boost-1 kcal/ml supplement ([facility] only) Code Status: Full Code Signed: [...] I reviewed the documentation by the medical engineer steam and agree as documented. Any additions or [...] home lactulose and rifaximin Spontaneous Bacterial Peritonitis ([facility]): Cultures from OSH are growing gram- [...] kidney disease) stage 4, GFR 15-29 ml/min ([facility]) Metabolic acidosis with normal anion gap [...] another specialty or practice, other licensed professional (PT/OT/MARKET RESEARCH CONSULTANT/RT), or a non-medical community professional: Nephrology, Hepatology Labs reviewed (1 pt each): CMP, CBC Test results reviewed (1 pt each): CXR, Head CT Review of notes from a different specialty or different practice: Nephrology, hepatology Use of parenteral controlled substances * Kiet Gardiner, PharmD - 10/06/2024 1:07 PM EDT Images from the original note were not included. [facility] Clinical Pharmacy Service: Vancomycin Monitoring [...] AM #2 Blood culture-Peripheral site 2 Preliminary [id number] Peripheral 10/06/2024 1:04 AM #1 Blood culture-Peripheral site 1 Preliminary [id number] Peripheral --Vancomycin Concentrations-- Lab Results (Last 7 [...] US Retroperitoneal complete (Results Pending) US Duplex Mhy-Ywd-Kvdylkh Comp (Results Pending) CT Head WO contrast [...] PM EDT Hospital Medicine Attending Supervision Note [facility] // [facility] Julien Gilbert was seen [...] MD - 10/05/2024 2:42 PM EDT [facility] Department of Medicine TRANSFER CALL NOTE Location [facility] ED History of Present Illness Julien Gilbert [...] nearest ED, with plan to transfer to [facility] if needing admission. In the ED, [...] Studies: Na 129 K 4.2 Cl 101 Lqznvl80 BUN 62 (up from baseline) Cr 3.6 [...] EDT [facility] PRE-SEDATION ASSESSMENT, HISTORY & PHYSICAL Date: 10/14/2024 [...] Neuro: AOx3 AUC For Cath Indication(s) for Hospice Physician Visit: Visit Indicators: Suspected CAD 2. Chest Pain Symptom Assessment: Asymptomatic 3. Heart Failure: Yes Class II 4. [facility] Clinical Frailty Scale: Mildly Frail Sedation Plan: Moderate Sedation with Local Anesthesia Antibiotic prophylaxis is not indicated. Mani Quan Interventional Stem Roller Operator Pager: [phone] [1] Patient Active Problem List Diagnosis Decompensated cirrhosis ([facility]) Acute kidney injury superimposed on CKD ([facility]) Alcohol use disorder Metabolic encephalopathy Hypertension Other hyperlipidemia Thrombocytopenia ([facility]) Renal mass, left Abdominal pain Hypokalemia CKD (chronic kidney disease) stage 4, GFR 15-29 ml/min ([facility]) Metabolic acidosis with normal anion gap and bicarbonate losses GERD (gastroesophageal reflux disease) Hypothyroidism Itching Anemia BRBPR (bright red blood per rectum) SBP (spontaneous bacterial peritonitis) ([facility]) C Diff Diarrhea C. difficile diarrhea Neck pain with history of cervical spinal surgery Cosigned by Irving Matta MD at 10/16/2024 10:54 AM EDT Associated attestation - Irving Matta MD - 10/16/2024 10:54 AM EDT Agree * Gerri Peterson MD - 10/10/2024 10:05 AM EDT [facility] PRE-SEDATION ASSESSMENT, HISTORY & PHYSICAL Date: 10/10/2024 [...] Patient Active Problem List Diagnosis Decompensated cirrhosis ([facility]) Acute kidney injury superimposed on CKD ([facility]) Alcohol use disorder Metabolic encephalopathy Hypertension Other hyperlipidemia Thrombocytopenia ([facility]) Renal mass, left Abdominal pain Hypokalemia CKD (chronic kidney disease) stage 4, GFR 15-29 ml/min ([facility]) Metabolic acidosis with normal anion gap and bicarbonate losses GERD (gastroesophageal reflux disease) Hypothyroidism Itching Anemia BRBPR (bright red blood per rectum) SBP (spontaneous bacterial peritonitis) ([facility]) C Diff Diarrhea C. difficile diarrhea Neck [...] Low Risk (07/09/2024) Received from [facility] Overall Financial Resource Strain (CARDIA) Difficulty of [...] No Physical Activity: Unknown (07/14/2024) Received from [facility] Exercise Vital Sign Days of Exercise per Week: Patient unable to answer Minutes of Exercise per Session: Not on file Stress: Patient Unable To Answer (07/14/2024) Received from [facility] [employer] [place] of Occupational Health - Occupational Stress Questionnaire Feeling of Stress : Patient unable to answer Social Connections: Patient Unable To Answer (07/14/2024) Received from [facility] Social Connection and Isolation Panel [NHANES] Frequency of Communication with Friends and Family: Patient unable to answer Frequency of Social Gatherings with Friends and Family: Patient unable to answer Attends Restorationism Services: Patient unable to answer Active Member [...] at 10/09/24 0801 methocarbamoL 500 mg TID Eilene Schroeder MD, PhD 500 mg at 10/09/24 [...] values in this interval not displayed. Imaging: @[id number]@ I have personally reviewed the imaging and have noted the following: Large recanalized umbilical vein Perihilar varices Replaced right hepatic artery Splenomegaly Spontaneous splenorenal shunt Large volume ascites, No portal vein thrombosis Assessment/Plan: A 39 y.o. male with ETOH decompensated by ascites, hepatic encephalopathy,bleeding esophageal Varices. Use and allocation of SCD, DAYCARE TEACHER, DCD and LDLT allografts discussed in detail. [...] from surgery (5%). I also explained the watermelon harvesting supervisor risks of transplantation and immunosuppression including viral infection and cancer both solid organand lymphoma. Kemar Sahni MD, Fellow, Multiorgan Abdominal Transplant Surgery. [facility]. 10/09/2024 3:16 PM [1] Allergies Allergen Reactions [...] Ortiz MD - 10/06/2024 12:00 AM EDT [facility] Internal Medicine - History and Physical Chief [...] taken to Radiology overnight for imaging upload. [facility] performed a bedside paracentesis and sent studies for SBP analysis. [facility] to see if labs have resulted. Review of Systems 14 pt ROS conducted and negative aside from that mentioned in above HPI Past Medical and Social History Lives in [place], [place] at bedside Notes that the patient [...] OSH Repeat labs pending on admission to [facility] Assessment & Plan Julien Gilbert is [...] AM EDT Hospital Medicine Attending Supervision Note [facility] // [facility] Julien Gilbert was seen [...] confusion and lethargy. HE was seen at [facility] ED were CT head unremarkable and RUQ with gallstones, abdominal ascites diagnostic para done and started on empiric CTX. Labs remarkable at OSH for K 4.2 Cl 101 Nhoumr27 BUN 62 (up from baseline) Cr 3.6 [...] another specialty or practice, other licensed professional (PT/OT/MARKET RESEARCH CONSULTANT/RT), or a non-medical community professional: ed [...] Medicine Department of Internal Medicine Pager ID: [phone] 6:04 AM, 10/06/2024 documented in this encounter [...] CNP Vascular & Interventional Radiology 10/10/2024,1:[address] [facility]: [phone]) * Lino Soto MD - 10/10/2024 12:06 PM EDT EGD Brief Op Note Julien Gilbert 10/05/2024 - 10/10/2024 Pre-op Diagnosis: Alcoholic cirrhosis of liver with ascites (CMS-HCC) [K70.31] Post-op Diagnosis: Portal gastropathy, Medium size, non-bleeding esophageal varices Procedure(s): EGD Surgeon(s): Lino Soto MD Anesthesia: MAC (Monitor Anesthesia Care) Staff: Fellow: Gerri Peterson MD Endoscopy Nurse: Kandice Castaneda RN Cvor Nurse: Diana Kemp Estimated Blood Loss: Minimal Specimens: Drains: There were no complications unless listed below. LINO SOTO MD Date: 10/10/2024 Time: 12:18 PM * Lino Soto MD - 10/10/2024 11:48 AM EDT [id number] Procedure Date: 10/10/2024 11:48 AM Patient Name: Julien Gilbert Date of : 1985 Admit Type: Inpatient Age: 39 Gender: Male Note Status: Finalized Attending MD: Lino Soto MD, [id number] Procedure: Upper GI endoscopy Indications: Gastroesopahgeal variceal [...] verified by the physician, the nurse, the structural steel fitter and the airframe technician in the pre-procedure area in the [...] to hypotension Procedure Code(s): --- Professional --- 92972, GC, Esophagogastroduodenoscopy, flexible, transoral; diagnostic, including collection of specimen(s) by brushing or washing, when performed (separate procedure) Diagnosis Code(s): --- Professional --- I85.00, Esophageal varices without bleeding K76.6, Portal hypertension K31.89, Other diseases of stomach and duodenum CPT copyright 2022 [employer]. All rights reserved. The codes documented in this report are preliminary and upon carving machine operator review may be revised to meet [...] In: 12:10:16 PM Scope Out: 12:17:[address] [place] [address], [facility] * Gill Le RN - 10/09/2024 [...] time. 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 Describes significant anxiety that occasionally limits his ability to drive, and stated he has to loop puller occasionally to collect himself, thought denied [...] need for sleep. Has not been on [facility] since stopping the cymbalta. [...] to his health decline. He was raised [employer] and denied current engagement in any community [...] or other abnormalities Cognition/Memory: short term and watermelon harvesting supervisor memory intact. Attention and concentration: is not [...] from the original note were not included. [facility] General Cardiology Consult Note Referring Physician: Fouzia [...] at baseline or with provocation, shows no rwnse-oi-uruv atrial level shunt. - Pulmonary arteries: Systolic [...] 10/13/24, please keep NPO on 10/12/24 at [place] Risks and benefits of new therapies added and new invasive and non-invasive procedures/diagnostic testing planned discussed with and understood by the patient/family who agree with the above plan. Plan discussed with the attending physician Dr. Blanco. Recommendations are preliminary until this note is co- signed by the attending. Follow up appointments with Cardiology can be scheduled by calling [phone]. Thank you for the opportunity to participate in this patient's care. Please call orpage with any questions. Leonor Garcia MD Stem Roller Operator I have personally seen, examined, reviewed [...] 0659 10/11/24 0700 - 10/12/24 0659 Shift 8020-4442 7986-0721 24 Hour Total 7121-3052 1855-6142 9737-6901 24 Hour Total INTAKE P.O. 2650 569 1542 P.O. 7652 646 2765 Boost (mL) - [facility] only 240 240 I.V.(mL/kg) 450(3.8) Volume [...] (See Comments) Became Manic * Bakari Wahl, [facility] - 10/10/2024 10:07 AM EDT Interventional Radiology [...] Please call with any questions. BAKARI WAHL, [facility] Vascular & Interventional Radiology 10/10/2024,1:[address] [facility]: [phone]) [1] Social History Tobacco Use Smoking Status [...] INFECTIOUS DISEASES [facility] DEPARTMENT OF INFECTIOUS DISEASE INITIAL NOTE Referring Physician: Fouzia Rene MD Consult Attending: Daria Garcia Patient: Julien Gilbert CSN: [id number] Reason for Consult: CC: Abx management History [...] HE. He was born and raised in [facility] . [place] to [place] [facility]. 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 [...] Low Risk (07/09/2024) Received from [facility] Overall Financial Resource Strain (CARDIA) Difficulty of [...] No Physical Activity: Unknown (07/14/2024) Received from [facility] Exercise Vital Sign Days of Exercise per Week: Patient unable to answer Minutes of Exercise per Session: Not on file Stress: Patient Unable To Answer (07/14/2024) Received from [facility] [place] of Occupational Health - Occupational Stress Questionnaire Feeling of Stress : Patient unable to answer Social Connections: Patient Unable To Answer (07/14/2024) Received from [facility] Social Connection and Isolation Panel [NHANES] Frequency of Communication with Friends and Family: Patient unable to answer Frequency of Social Gatherings with Friends and Family: Patient unable to answer Attends Restorationism Services: Patient unable to answer Active Member [...] day. Qty: 60 tablet, Refills: 0 Comments: [facility] [place] [address] sodium bicarbonate 650 MG tablet Take 2 [...] Aphasia [R47.01] 10/06/2024 SBP (spontaneous bacterial peritonitis) ([facility]) [K65.2] 09/08/2024 Metabolic acidosis with normal anion gap and bicarbonate losses [E87.20] 09/03/2024 CKD (chronic kidney disease) stage 4, GFR 15-29 ml/min ([facility]) [N18.4] 09/03/2024 GERD (gastroesophageal reflux disease) [K21.9] 09/03/2024 Renal mass, left [N28.89] 08/18/2024 Thrombocytopenia ([facility]) [D69.6] Decompensated cirrhosis ([facility]) [K72.90, K74.60] 07/25/2024 NADIYA (acute kidney injury) ([facility]) [N17.9] 07/25/2024 Resolved [...] Signed: Daria Garcia MD 10/08/2024, 9:46 AM [phone] [1] Allergies Allergen Reactions Adhesive Itching and [...] Low Risk (07/09/2024) Received from [facility] Overall Financial Resource Strain (CARDIA) Difficulty of [...] No Physical Activity: Unknown (07/14/2024) Received from [facility] Exercise Vital Sign Days of Exercise per Week: Patient unable to answer Minutes of Exercise per Session: Not on file Stress: Patient Unable To Answer (07/14/2024) Received from [facility] [place] of Occupational Health - Occupational Stress Questionnaire Feeling of Stress : Patient unable to answer Social Connections: Patient Unable To Answer (07/14/2024) Received from [facility] Social Connection and Isolation Panel [NHANES] Frequency of Communication with Friends and Family: Patient unable to answer Frequency of Social Gatherings with Friends and Family: Patient unable to answer Attends Restorationism Services: Patient unable to answer Active Member [...] is no recent study available for direct [id number] comparison. Left Ventricle The left ventricle is [...] pressures < 35 mmHgon resting echo from [facility] 07/15/24. No ischemic workup noted. ECG [...] surgery with risk (OLT/OKT) Los Broussard MD, [facility] Department of Anesthesiology [1] Allergies Allergen Reactions Adhesive Itching and Rash Tegaderm adhesive on Ivs, pt states its tolerable Duloxetine Other (See Comments) Became Manic [2] Patient Active Problem List Diagnosis Decompensated cirrhosis ([facility]) NADIYA (acute kidney injury) ([facility]) Alcohol use disorder Metabolic encephalopathy Hypertension Other hyperlipidemia Thrombocytopenia ([facility]) Renal mass, left Abdominal pain Hypokalemia CKD (chronic kidney disease) stage 4, GFR 15-29 ml/min ([facility]) Metabolic acidosis with normal anion gap and bicarbonate losses GERD (gastroesophageal reflux disease) Hypothyroidism Itching Anemia BRBPR (bright red blood per rectum) SBP (spontaneous bacterial peritonitis) ([facility]) C Diff Diarrhea [...] MD PCP: Enedina Mcguire NP Home Pharmacy: [facility] [address] [place], [place] [address] [address] [address] [facility] [address] [facility] [id number] Issues related to obtaining medications: Payor Information Medical Insurance Coverage: Payor: [facility] / Plan: [facility] / Product Type: *No Producttype* / Secondary Payor: Functional Assessment Functional Assessment Assessment Information Obtained From:: Patient Current Mental Status: Awake, Oriented to Person, Oriented to Place, Oriented to Time, Oriented to Situation Mental Health History: Yes Behavioral Health Agency Involvement: Yes Behavioral Health Agency Name: Other (Comment) (states he used [facility] for mental health help) Do [...] Was any abuse reported by patient?: No [place] Status & Connection to [facility] Services Status [...] confusion and lethargy. HE was seen at [facility] ED were CT head unremarkable and RUQ with gallstones, abdominal ascites diagnostic para done and started on empiric CTX. BSN RN Trackless Trolley Driver Neisha Fuentes met with patient at [...] ago where he did rehab through [facility]. No history of home health [...] are disclosed as appropriate. Kandy Fuentes BSOlga [facility] * Gladys Banda, MARKET RESEARCH CONSULTANT - 10/07/2024 11:15 AM EDT Speech Language Pathology Speech, Language and Cognitive Initial Assessment Name: Julien Gilbert : 1985 Attending Physician: Fouzia Rene MD Admission Diagnosis: AMS Date: 10/07/2024 Reviewed Pertinent hospital course: Yes Hospital Course MARKET RESEARCH CONSULTANT: 39 y/o male with a past [...] 2. No intracranial mass effect or hemorrhage. MARKET RESEARCH CONSULTANT Hx: 08/15/24: BSE with recs for [...] if new needs arise. No further acute MARKET RESEARCH CONSULTANT services are warranted for speech, language, or cognition at this time. Plan/Recommendation: - Discharge from MARKET RESEARCH CONSULTANT - no acute needs at this time - MARKET RESEARCH CONSULTANT at discharge is not recommended Problem List Problem List[1] Past Medical History Past Medical History: Diagnosis Date Alcoholic cirrhosis of liver (CMS-HCC) Alcoholic hepatitis Esophageal varices (CMS-HCC) Hepatorenal syndrome (CMS-HCC) Hypertension Other hyperlipidemia 07/26/2024 Renal cell carcinoma (CMS-HCC) Thrombocytopenia ([facility]) Thyroid disease Past Surgical History No [...] Primary Mode of Expression: Verbal Primary Language: Greek Confrontation Naming: Within Functional Limits Word Level [...] Patient educated on: Family educated on;role of MARKET RESEARCH CONSULTANT, current POC, and discharge recommendations forSLP therapy Patient response: Patient verbalized understanding;Family demonstrated understanding End of Session: Patient was left in bed with call light within reach and all needs met. Gladys Banda M.A, CCC-MARKET RESEARCH CONSULTANT Speech Language Pathologist--Rehab Services [facility] MBSImP Certified Clinician Time Start Time: 1055 Stop Time: 1109 Time Calculation (min): 14 min Charges $Eval Speech Sound Prd w/Lng Comp & Expr: 1 Procedure Patient Class Inpatient [1] Patient Active Problem List Diagnosis Decompensated cirrhosis ([facility]) NADIYA (acute kidney injury) ([facility]) Alcohol use disorder Metabolic encephalopathy Hypertension Other hyperlipidemia Thrombocytopenia ([facility]) Renal mass, left Abdominal pain Hypokalemia CKD (chronic kidney disease) stage 4, GFR 15-29 ml/min ([facility]) Metabolic acidosis with normal anion gap and [...] NAGMA related to diarrhea No Indication for LABORATORY GENETICIST Liver transplant workup per GI/ Primary team Thank you for allowing us to participate in this patient's care. Discussed with Consult Staff. Ignacio Queen MD Renal Fellow Pager # [phone] Chief Complaint No chief complaint on file. [...] TIBC , FERRITIN No results found for: [id number] , FOLATE Lab Results Component Value Date [...] CRUR No results found for: MICROALBUR , [id number] In addition to the above an extensive [...] 5.3 (H) 10/06/2024 No results found for: [id number] PLAN Patient seen labs reviewed Unclear baseline serum creat Recent episode of acute kidney injury requiring hospitalization Now has [id number] episode of NADIYA Underwent paracentesis 3 days [...] team Colten Huertas MD, KISHOR LIN FNKF movie actor Div. of Nephrology [facility] E-mail: [email or web address] * Jerad Hughes MD - 10/06/2024 9:28 AM EDTAssociated Order(s): IP CONSULT TO [facility] CONSULT NOTE Name: Julien Gilbert CSN: [id number] Consulted by: Angie Blanchard MD Reason for Consult: Decompensated Cirrhosis History of Present Illness: Julien Gilbert is a 39 y.o. with history of decompensated EtOH cirrhosis (complicated by EV, HRS, ascites, HE), HTN, and CKD. Patient admitted as transfer from [facility] ED with confusion and lethargy. Diagnostic paracentesis [...] to diarrhea. Patient was recently referred to [facility] for liver transplant evaluation. 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 Bedside report received from fish farm [...] EDT Pt arrived with and admitted into [facility] from [facility] with AMS. Hosiptalist paged to the bedside [...] Patient will remain free of falls Goal: [place] Precautions Outcome: Progressing Problem: Daily Care Goal: Daily care needs are met Description: Assess and monitor ability to perform self care and identify potential discharge needs. Outcome: Progressing * Care Coordination - Kandy Fuentes - 10/16/2024 11:33 AM EDT [facility] Case Management/Social Work Department Progress Note Patient Information Patient Name: Julien Gilbert Hospital day: 11 Inpatient/Observation: Inpatient Level of Care: kinsey Admit date: 10/05/2024 Admission diagnosis: AMS PMH: has a past medical history of Alcoholic cirrhosis of liver (CMS-HCC), Esophageal varices (CMS-HCC), Hepatorenal syndrome ([facility]), Hypertension, Other hyperlipidemia (07/26/2024), Renal cell carcinoma (CMS-HCC), Thrombocytopenia ([facility]), and Thyroid disease. PCP: Enedina Mcguire NP Home Pharmacy: [facility] [address] [facility] [place] [address] [address] [facility] [address] [facility] [id number] Medical Insurance Coverage: Payor: [place] [email or web address] / Plan: [facility] / Product Type: *No Producttype* / Other Pertinent Information RN/CM received update from team and completed chart review. Pt is not medically ready for discharge. Nephrology to see today. Here for pre-transplant work up. Discharge Plan Anticipated discharge plan: home Anticipated discharge date: 10/17/24 CM/SW will continue to follow and remain available for discharge planning needs. Kandy BAE [facility] * Plan of Care - [...] Patient will remain free of falls Goal: [place] Precautions Outcome: Progressing Problem: Daily Care [...] Patient will remain free of falls Goal: [place] Precautions Outcome: Progressing Problem: Daily Care [...] Kandy Fuentes - 10/15/2024 2:26 PM EDT [facility] Case Management/Social Work Department Progress Note Patient Information Patient Name: Julien Gilbert Hospital day: 10 Inpatient/Observation: Inpatient Level of Care: blue Admit date: 10/05/2024 Admission diagnosis: AMS PMH: has a past medical history of Alcoholic cirrhosis of liver (CMS-HCC), Esophageal varices ([facility]), Hepatorenal syndrome ([facility]), Hypertension, Other hyperlipidemia (07/26/2024), Renal cell carcinoma (CMS-HCC), Thrombocytopenia ([facility]), and Thyroid disease. PCP: Enedina Mcguire NP Home Pharmacy: [facility] [address] [facility] [address] [place] [id number] [facility] [address] [facility] [id number] Medical Insurance Coverage: Payor: [facility] / Plan: [facility] / Product Type: *No [...] Patient will remain free of falls Goal: [place] Fall Precautions Outcome: Progressing Problem: Daily Care [...] Kandy Fuentes - 10/14/2024 11:10 AM EDT [facility] Case Management/Social Work Department Progress Note Patient Information Patient Name: Julien Gilbert Hospital day: 9 Inpatient/Observation: Inpatient Level of Care: blue Admit date: 10/05/2024 Admission diagnosis: AMS PMH: has a past medical history of Alcoholic cirrhosis of liver (CMS-HCC), Esophageal varices ([facility]), Hepatorenal syndrome ([facility]), Hypertension, Other hyperlipidemia (07/26/2024), Renal cell carcinoma ([facility]), Thrombocytopenia ([facility]), and Thyroid disease. PCP: Enedina Mcguire NP Home Pharmacy: [facility] [address] [place] [address] [facility] [address] [id number] Medical Insurance Coverage: Payor: [facility] / Plan: [facility] / Product Type: *No [...] Kandy Fuentes - 10/13/2024 11:53 AM EDT [facility] Case Management/Social Work Department Progress Note Patient Information Patient Name: Julien Gilbert Hospital day: 8 Inpatient/Observation: Inpatient Level of Care: blue Admit date: 10/05/2024 Admission diagnosis: AMS PMH: has a past medical history of Alcoholic cirrhosis of liver (CMS-HCC), Alcoholic hepatitis, Esophageal varices (CMS-HCC), Hepatorenal syndrome ([facility]), Hypertension, Other hyperlipidemia (07/26/2024), Renal cell carcinoma ([facility]), Thrombocytopenia ([facility]), and Thyroid disease. PCP: Enedina Mcguire NP Home Pharmacy: [facility] [address] [place] [address] [place] [address] [facility] [address] [facility] [id number] Medical Insurance Coverage: Payor: [facility] / Plan: [facility] / Product Type: *No Producttype* / Other Pertinent Information RN/CM received update from team and completed chart review. Pt is not medically ready for discharge. Patient is going to have left heart cath today. Discharge Plan Anticipated discharge plan: home Anticipated discharge date: 10/14/24 CM/SW will continue to follow and remain available for discharge planning needs. Kandy BAE [facility] * Plan of Care - [...] Kandy Fuentes - 10/10/2024 12:00 PM EDT [facility] Case Management/Social Work Department Progress [...] disease. PCP: Enedina Mcguire NP Home Pharmacy: [facility] [address] [address] [address] [facility] [address] [facility] [id number] Medical Insurance Coverage: Payor: [facility] / Plan: [facility] / Product Type: *No [...] for discharge planning needs. Kandy BAE [facility] * Plan of Care - [...] Patient will remain free of falls Goal: [place] Fall Precautions Outcome: Progressing Problem: Daily Care [...] Patient will remain free of falls Goal: [place] Fall Precautions Outcome: Progressing Problem: Daily Care [...] Kandy Fuentes - 10/09/2024 12:05 PM EDT [facility] Case Management/Social Work Department Progress [...] disease. PCP: Enedina Mcguire NP Home Pharmacy: [facility] - [place], [place] - [address] [address] [facility] [address] [facility] [id number] Medical Insurance Coverage: Payor: [facility] / Plan: [facility] / Product Type: *No [...] Kandy Fuentes - 10/08/2024 3:41 PM EDT [facility] Case Management/Social Work Department Progress Note Patient Information Patient Name: Julien Gilbert Hospital day: 3 Inpatient/Observation: Inpatient Level of Care: blue Admit date: 10/05/2024 Admission diagnosis: AMS PMH: has a past medical history of Alcoholic cirrhosis of liver (CMS-HCC), Alcoholic hepatitis, Esophageal varices ([facility]), Hepatorenal syndrome ([facility]), Hypertension, Other hyperlipidemia (07/26/2024), Renal cell carcinoma ([facility]), Thrombocytopenia ([facility]), and Thyroid disease. PCP: Enedina Mcguire NP Home Pharmacy: [facility] [address] [place] [address] [facility] [address] [facility] [id number] Medical Insurance Coverage: Payor: [facility] / Plan: [facility] / Product Type: *No [...] Kandy Fuentes - 10/07/2024 3:22 PM EDT [facility] Case Management/Social Work Department Progress Note Patient Information Patient Name: Julien Gilbert Hospital day: 2 Inpatient/Observation: Inpatient Level of Care: blue Admit date: 10/05/2024 Admission diagnosis: AMS PMH: has a past medical history of Alcoholic cirrhosis of liver ([facility]), Alcoholic hepatitis, Esophageal varices ([facility]), Hepatorenal syndrome ([facility]), Hypertension, Other hyperlipidemia (07/26/2024), Renal cell carcinoma ([facility]), Thrombocytopenia ([facility]), and Thyroid disease. PCP: Enedina Mcguire NP Home Pharmacy: [address] [address] [facility] [address] [facility] [id number] Medical Insurance Coverage: Payor: [facility] / Plan: [facility] / Product Type: *No [...] Patient will remain free of falls Goal: [place] Fall Precautions Outcome: Progressing Problem: Daily Care [...] Description 12/05/2024 8:01 AM EDT Hospital Encounter [facility] ENDOSCOPY [address] [place] [address] Chris Orosco MD [address] [place] [phone] 12/05/2024 8:01 AM EDT - 12/05/2024 8:31 AM EDT [facility] [address] [place] [address] Chris Orosco MD [address] [place] [address] [phone] EGD Scheduled Procedures Name Priority Associated Diagnoses Date/Ti me EGD Cirrhosis of liver with ascites, unspecified hepatic cirrhosis type ([facility]) 12/05/2024 8:01 AM EDT documented as of this encounter Procedures Procedure Name Priority Date/Time Associated Diagnosis Comments BLOOD TRANSFUSION - SCAN 06/07/2 025 3:03 PM EDT RENAL FUNCTION PANEL [...] IGG ANTIBODY Routine 10/07/2024 6:37 PM EDT [id number] (AAT) QUANTITATION & MUTATION Routine 10/07/2024 6:37 PM EDT STRONGYLOIDES AB Routine 10/07/2024 6:37 PM EDT ETHANOL, SERUM Routine 10/07/2024 6:37 PM EDT KTAIE-WATKINS VIRUS EARLY ANTIGEN ANTIBODY, IGG Routine 10/07/2024 [...] Routine 10/07/2024 6:19 PM EDT US DUPLEX [id number] COMPLETE Routine 10/07/2024 3:48 PM EDT US [...] 10/06/2024 4:01 AM EDT UPPER RESPIRATORY VIRAL/BACTERIAL PANEL-MILK COLLECTOR ONLY Routine 10/06/2024 3:12 AM EDT XR [...] EDT [facility] Potassium 3.4(L) 3.5 - 5.3 mmol/L 10/17/2024 7:02 AM EDT [facility] Chloride 104 98 - 110 mmol/L 10/17/2024 7:02 AM EDT [facility] CO2 18(L) 21 - 33 mmol/L 10/17/2024 7:02 AM EDT [facility] Anion Gap 11 3 - 16 mmol/L 10/17/2024 7:02 AM T [facility] BUN 54(H) 7 - 25 mg/dL 10/17/2024 7:02 AM [facility] Creatinine 2.88(H) 0.60 - 1.30 mg/dL 10/17/2024 7:02 AM [facility] Glucose 127(H) 70 - 100 mg/dL 10/17/2024 7:02 AM T [facility] Calcium 8.2(L) 8.6 - 10.3 mg/dL 10/17/2024 7:02 AM EDT [facility] Phosphorus 4.5 2.1 - 4.7 mg/dL 10/17/2024 7:02 AM T [facility] Albumin 3.1(L) 3.5 - 5.7 g/dL 10/17/2024 7:02 AM EDT [facility] Osmolality, Calculated 292 278 - 305 mOsm/kg 10/17/2024 7:02 AM EDT [facility] EGFR 27 10/17/2024 7:02 AM T [facility] Comment:As of 2021, the estimated GFR [...] ORDERABLES Final Result Performing Organization Address [facility] de Phone Number [facility] [address] [facility]. [address] * (ABNORMAL) Protime-INR (10/16/2024 6:31 AM EDT) Protime 22.5(H) 12.1 - 15.1 seconds 10/16/2024 8:04 AM EDT [facility] INR 1.9(H) 0.9 - 1.1 10/16/2024 8:04 AM EDT [facility] Comment: RECOMMENDED THERAPEUTIC RANGES USING INR : Stable oral anticoagulant therapy: 2.0 - 3.0 Mechanical prosthetic heart valve: 2.5 - 3.5 Recurrent acute myocardial infarction: 2.5 - 3.5 Plasma 10/16/2024 6:31 AM EDT 10/16/2024 6:56 AM EDT Eileen Schroeder MD, PhD LAB BLOOD ORDERABLES Final Result Performing Organization Address [facility] de Phone Number [facility] [address] [facility]. [address] * (ABNORMAL) Hepatic Function Panel (10/16/2024 6:31 AM EDT) Total Bilirubin 7.6(H) 0.0 - 1.5 mg/dL 10/16/2024 7:24 AM EDT [facility] Bilirubin, Direct 3.97(H) 0.00 - 0.40 mg/dL 10/16/2024 7:24 AM EDT [facility] AST 45(H) 13 - 39 U/L 10/16/2024 7:24 AM EDT [facility] ALT 23 7 - 52 U/L 10/16/2024 7:24 AM EDT [facility] Alkaline Phosphatase 137(H) 36 - 125 U/L 10/16/2024 7:24 AM EDT [facility] Total Protein 5.1(L) 6.4 - 8.9 g/dL 10/16/2024 7:24 AM EDT [facility] Albumin 3.4(L) 3.5 - 5.7 g/dL 10/16/2024 7:24 AM EDT [facility] Bilirubin, Indirect 3.63(H) 0.00 - 1.10 mg/dL 10/16/2024 7:24 AM EDT [facility] Plasma 10/16/2024 6:31 AM EDT 10/16/2024 6:56 AM EDT us Eileen Schroeder MD, PhD LAB BLOOD ORDERABLES Final Result Performing Organization Address [facility]/ZIP Co de Phone Number [facility] [address] * Magnesium (10/16/2024 6:31 AM EDT) Magnesium 2.1 1.5 - 2.5 mg/dL 10/16/2024 7:24 AM EDT [facility] Plasma 10/16/2024 6:31 AM EDT 10/16/2024 6:56 AM EDT us Eileen Schroeder MD, PhD LAB BLOOD ORDERABLES Final Result [facility] [facility] [address] * (ABNORMAL) Renal Function Panel w/EGFR (10/16/2024 6:31 AM EDT) Sodium 135 133 - 146 mmol/L 10/16/2024 7:24 AM EDT [facility] Potassium 3.7 3.5 - 5.3 mmol/L 10/16/2024 7:24 AM EDT [facility] Chloride 106 98 - 110 mmol/L 10/16/2024 7:24 AM EDT [facility] CO2 16(L) 21 - 33 mmol/L 10/16/2024 7:24 AM EDT [facility] Anion Gap 13 3 - 16 mmol/L 10/16/2024 7:24 AM EDT [facility] BUN 55(H) 7 - 25 mg/dL 10/16/2024 7:24 AM EDT [facility] Creatinine 3.20(H) 0.60 - 1.30 mg/dL 10/16/2024 7:24 AM EDT [facility] Glucose 121(H) 70 - 100 mg/dL 10/16/2024 7:24 AM EDT [facility] Calcium 8.5(L) 8.6 - 10.3 mg/dL 10/16/2024 7:24 AM EDT [facility] Phosphorus 4.2 2.1 - 4.7 mg/dL 10/16/2024 7:24 AM EDT [facility] Albumin 3.4(L) 3.5 - 5.7 g/dL 10/16/2024 7:24 AM EDT [facility] Osmolality, Calculated 296 278 - 305 mOsm/kg 10/16/2024 7:24 AM EDT [facility] EGFR 24 10/16/2024 7:24 AM EDT [facility] Comment:As of 2021, the estimated GFR [...] Final Result [facility] [address] [place] [address], [facility] * (ABNORMAL) CBC (10/16/2024 6:31 AM EDT) WBC 5.8 3.8 - 10.8 10E3/uL 10/16/2024 8:00 AM EDT [facility] RBC 2.16(L) 4.20 - 5.80 10E6/uL 10/16/2024 8:00 AM EDT [facility] Hemoglobin 7.7(L) 13.2 - 17.1 g/dL 10/16/2024 8:00 AM EDT [facility] Hematocrit 22.1(L) 38.5 - 50.0 % 10/16/2024 8:00 AM EDT [facility] MCV 102.3(H) 80.0 - 100.0 fL 10/16/2024 8:00 AM EDT [facility] MCH 35.7(H) 27.0 - 33.0 pg 10/16/2024 8:00 AM EDT [facility] MCHC 34.9 32.0 - 36.0 g/dL 10/16/2024 8:00 AM EDT [facility] RDW 17.7(H) 11.0 - 15.0 % 10/16/2024 8:00 AM EDT [facility] Platelets 43(L) 140 - 400 10E3/uL 10/16/2024 8:00 AM EDT [facility] Comment: Specimen checked for clots. None detected. Slide Reviewed for PLT Clumps. None Seen. Platelet Estimate Decreased 10/16/2024 8:00 AM EDT [facility] MPV 8.6 7.5 - 11.5 fL 10/16/2024 8:00 AM EDT [facility] Whole Blood 10/16/2024 6:31 AM EDT 10/16/2024 6:57 AM EDT Narrative [facility] - 10/16/2024 8:00 AM EDT Peripheral blood smear was scanned per review criteria approved by the laboratory medical record technician. us Eileen Schroeder MD, PhD LAB BLOOD ORDERABLES Final Result [facility] [address] [place] [address], [facility] * CARISA Rhythm Strip - Scan (10/15/2024 8:02 PM EDT) us Scanning Uchhim SCAN DOCS - NO RESULTS Final Res ult * CARISA Rhythm Strip - Scan (10/15/2024 8:02 PM EDT) us Scanning Uchhim SCAN DOCS - NO RESULTS Final Res ult * Prepare Platelets, leukoreduced, 1 Units (10/15/2024 6:16 AM EDT) Product Code C3103W65 [facility]LL Unit Number [id number] HCLL Dispense Status Presumed Transfused_PT HCLL Blood Expiration Date [id number] HCLL Coding System [id number] HCLL Blood Bank Product us Eleazar Nguyễn MD BLOOD BANK PRODUCT ORDE RABLES Final Result Performing Organization Address [facility] Co de Phone Number HCLL * Prepare Fresh Frozen Plasma, 1 Units (10/15/2024 6:15 AM EDT) Product Code K9091Y55 [facility] Unit Number [id number] [facility]LL Dispense Status Presumed Transfused_PT HCLL Blood Expiration Date [id number] HCLL Coding System [id number] HCLL Blood Bank Product Eleazar Nguyễn MD [...] Final Result [facility] [address] * (ABNORMAL) Hepatic Function Panel (10/15/2024 6:08 AM EDT) Pathologist [facility] Total Bilirubin 7.1(H) 0.0 - 1.5 mg/dL 10/15/2024 6:45 AM EDT [facility] Bilirubin, Direct 3.77(H) 0.00 - 0.40 mg/dL 10/15/2024 6:45 AM EDT [facility] AST 39 13 - 39 U/L 10/15/2024 6:45 AM EDT [facility] ALT 22 7 - 52 U/L 10/15/2024 6:45 AM EDT [facility] Alkaline Phosphatase 115 36 - 125 U/L 10/15/2024 6:45 AM EDT [facility] Total Protein 4.8(L) 6.4 - 8.9 g/dL 10/15/2024 6:45 AM EDT [facility] Albumin 3.2(L) 3.5 - 5.7 g/dL 10/15/2024 6:45 AM EDT [facility] Bilirubin, Indirect 3.33(H) 0.00 - 1.10 mg/dL 10/15/2024 6:45 AM EDT [facility] Plasma 10/15/2024 6:08 AM EDT 10/15/2024 6:17 AM EDT us Eileen Schroeder MD, PhD LAB BLOOD ORDERABLES Final Result Performing Organization Address City/[facility]/ZIP Co de Phone Number [facility] [address] * Magnesium (10/15/2024 6:08 AM EDT) Magnesium 1.8 1.5 - 2.5 mg/dL 10/15/2024 6:45 AM EDT [facility] Plasma 10/15/2024 6:08 AM EDT 10/15/2024 6:17 AM EDT us Eielen Schroeder MD, PhD LAB BLOOD ORDERABLES Final Result Performing Organization Address [facility] de Phone Number [facility] [address] * (ABNORMAL) Renal Function Panel w/EGFR (10/15/2024 6:08 AM EDT) Sodium 135 133 - 146 mmol/L 10/15/2024 6:45 AM EDT [facility] Potassium 3.4(L) 3.5 - 5.3 mmol/L 10/15/2024 6:45 AM EDT [facility] Chloride 107 98 - 110 mmol/L 10/15/2024 6:45 AM EDT [facility] CO2 17(L) 21 - 33 mmol/L 10/15/2024 6:45 AM EDT [facility] Anion Gap 11 3 - 16 mmol/L 10/15/2024 6:45 AM EDT [facility] BUN 55(H) 7 - 25 mg/dL 10/15/2024 6:45 AM EDT [facility] Creatinine 2.88(H) 0.60 - 1.30 mg/dL 10/15/2024 6:45 AM EDT [facility] Glucose 125(H) 70 - 100 mg/dL 10/15/2024 6:45 AM EDT [facility] Calcium 8.4(L) 8.6 - 10.3 mg/dL 10/15/2024 6:45 AM EDT [facility] Phosphorus 3.9 2.1 - 4.7 mg/dL 10/15/2024 6:45 AM EDT [facility] Albumin 3.2(L) 3.5 - 5.7 g/dL 10/15/2024 6:45 AM EDT [facility] Osmolality, Calculated 297 278 - 305 mOsm/kg 10/15/2024 6:45 AM EDT [facility] EGFR 27 10/15/2024 6:45 AM EDT [facility] Comment:As of 2021, the estimated GFR [...] Luis Eduardo C, Talia M, Olivia [place], Emeirta [place], Madelyn [place], Felicia [place], et al. A Unifying Approach for GFR Estimation: Recommendations of the NKF-ASN Task Force on Reassessing the inclusion of Race in Diagnosing Kidney Disease. Am J Kidney Dis. 2020. Plasma 10/15/2024 6:08 AM EDT 10/15/2024 6:17 AM EDT us Eileen Schroeder MD, PhD LAB BLOOD ORDERABLES Final Result [facility] [address] [place], [place] [address] * (ABNORMAL) CBC (10/15/2024 6:08 AM EDT) WBC 4.6 3.8 - 10.8 10E3/uL 10/15/2024 6:51 AM EDT [facility] RBC 1.94(L) 4.20 - 5.80 10E6/uL 10/15/2024 6:51 AM EDT [facility] Hemoglobin 7.1(L) 13.2 - 17.1 g/dL 10/15/2024 6:51 AM EDT [facility] Hematocrit 19.6(L) 38.5 - 50.0 % 10/15/2024 6:51 AM EDT [facility] MCV 100.8(H) 80.0 - 100.0 fL 10/15/2024 6:51 AM EDT [facility] MCH 36.7(H) 27.0 - 33.0 pg 10/15/2024 6:51 AM EDT [facility] MCHC 36.4(H) 32.0 - 36.0 g/dL 10/15/2024 6:51 AM EDT [facility] RDW 17.3(H) 11.0 - 15.0 % 10/15/2024 6:51 AM EDT [facility] Platelets 34(L) 140 - 400 10E3/uL 10/15/2024 6:51 AM EDT [facility] Comment:Specimen checked for clots. None detected. MPV 8.7 7.5 - 11.5 fL 10/15/2024 6:51 AM EDT [facility] Whole Blood 10/15/2024 6:08 AM EDT 10/15/2024 6:17 AM EDT us Eileen Schroeder MD, PhD LAB BLOOD ORDERABLES Final Result [facility] [address] [place] [address], [facility] * PRA-HLA Ab Screen (Cytotoxic) (10/15/2024 6:08 AM EDT) Pathologist [facility] The request and specimen(s) for this test have been received and transported to the [facility] at [address] [place] [address]. The [facility] will report results directly to the client. 10/15/2024 6:42 AM EDT [facility] Comment:The request and spec imen(s) for this test have been received and transported to the [facility] at [address] [place] [address]. [facility] will report results directly to the client. Serum 10/15/2024 6:08 AM EDT 10/15/2024 6:42 AM EDT us Cosmo Pacheco MD LAB BLOOD ORDERABLES Final Resul t [facility] [address] [facility]. [address] * LEFT HEART CATH (10/14/2024 2:09 PM EDT) 10/14/2024 11:4 7 AM EDT Narrative [facility] - 10/14/2024 9:27 PM EDT *[facility]* Cardiac Hospice Physician [facility] [place] [address] CATHETERIZATION LAB STUDY Patient: Julien Gilbert Age: [...] manner. 3. Right radial artery access. A [id number] Glidesheath - Slender - .021 sheath was [...] + !LV pressure s/d, ed !112/, 22, dP/zt=3705az Hg/s! + + + !Aortic pressure s/d (m)!106/58 (75) ! + + + ATTESTATION: Dr. Matta was present for the entire procedure. Dr. Jay Quan was the initial author of this report. Prepared and electronically signed by Irving Matta MD [id number] Procedure Note Irving Matta MD - 10/14/2024 *[facility]* Cardiac Hospice Physician [address] [place] [address] CATHETERIZATION LAB STUDY Patient: Julien Gilbert Age: [...] manner. 3. Right radial artery access. A [id number] Glidesheath - Slender - .021sheath was advanced [...] complications. Contrast: Omnipaque 350 25ml (total dose). Lgiaxybvj775 125ml (wasted). Radiation: Fluoroscopy time: 15min. Total [...] + !LV pressure s/d, ed !112/, 22, dP/rd=8499ee Hg/s! + + + !Aortic pressure s/d (m)!106/58 (75) ! + + + ATTESTATION: Dr. Matta was present for the entire procedure. Dr. Jay Quan wasthe initial author of this report. Prepared and electronically signed by Irving Matta MD [id number]:50 [place] [id number] Final Result Performing Organization Address [facility] Co de Phone Number [facility] * Transfuse Fresh Frozen Plasma Transfusion Rate: Per dept routine (10/14/2024 2:08 PM EDT) us Eleazar Nguyễn MD NURSING TREATMENT ORDER PAL - BLOOD ADMIN Final Result Performing Organization Address [facility] Co de Phone Number EXTERNAL * Transfuse Fresh Frozen Plasma Transfusion Rate: Per dept routine, 1 Units (10/14/2024 2:08 PM EDT) us Eleazar Nguyễn MD NURSING TREATMENT ORDER PAL - BLOOD ADMIN Final Result Performing Organization Address City/[facility]/ZIP Co de Phone Number EXTERNAL * Transfuse Platelets Transfusion Rate: Per dept routine (10/14/2024 12:43 PM EDT) us Eleazar Nguyễn MD NURSING TREATMENT ORDER PAL - BLOOD ADMIN Final Result Performing Organization Address City/[facility] Co de Phone Number EXTERNAL * Transfuse Platelets Transfusion Rate: Per dept routine, 1 Units (10/14/2024 12:43 PM EDT) Eleazar Nguyễn MD NURSING TREATMENT ORDER PAL - BLOOD ADMIN Final Result EXTERNAL * Antibody Screen (10/14/2024 8:21 AM EDT) Antibody Screen Negative 10/14/2024 9:11 AM EDT [facility] Blood 10/14/2024 8:21 AM EDT 10/14/2024 8:33 AM EDT Narrative [facility] - 10/14/2024 9:26 AM EDT Testing performed by [facility] Transfusion Service us Eleazar Nguyễn MD BLOOD BANK TEST ORDERAB LES Final Result Performing Organization Address [facility] Co de Phone Number [facility] [address] * ABO/Rh (10/14/2024 8:21 AM EDT) ABO Grouping O 10/14/2024 8:55 AM EDT [facility] Rh Type Positive 10/14/2024 8:55 AM EDT [facility] Blood 10/14/2024 8:21 AM EDT 10/14/2024 8:33 AM EDT Eleazar Nguyễn MD BLOOD BANK TEST ORDERAB LES Final Result Performing Organization Address [facility] Co de Phone Number [facility] [address] * (ABNORMAL) Protime-INR (10/14/2024 2:53 AM EDT) Protime 23.8(H) 12.1 - 15.1 seconds 10/14/2024 4:34 AM EDT [facility] INR 2.1(H) 0.9 - 1.1 10/14/2024 4:34 AM EDT [facility] Comment: RECOMMENDED THERAPEUTIC RANGES USING INR : Stable oral anticoagulant therapy: 2.0 - 3.0 Mechanical prosthetic heart valve: 2.5 - 3.5 Recurrent acute myocardial infarction: 2.5 - 3.5 Plasma 10/14/2024 2:53 AM EDT 10/14/2024 4:16 AM EDT Eileen Schroeder MD, PhD LAB BLOOD ORDERABLES Final Result Performing Organization Address [facility] Co de Phone Number [facility] [address] [facility]. [address] * (ABNORMAL) Hepatic Function Panel (10/14/2024 2:53 AM EDT) Total Bilirubin 7.2(H) 0.0 - 1.5 mg/dL 10/14/2024 4:45 AM EDT [facility] Bilirubin, Direct 3.86(H) 0.00 - 0.40 mg/dL 10/14/2024 4:45 AM EDT [facility] AST 41(H) 13 - 39 U/L 10/14/2024 4:45 AM EDT [facility] ALT 22 7 - 52 U/L 10/14/2024 4:45 AM EDT [facility] Alkaline Phosphatase 119 36 - 125 U/L 10/14/2024 4:45 AM EDT [facility] Total Protein 4.6(L) 6.4 - 8.9 g/dL 10/14/2024 4:45 AM EDT [facility] Albumin 3.3(L) 3.5 - 5.7 g/dL 10/14/2024 4:45 AM EDT [facility] Bilirubin, Indirect 3.34(H) 0.00 - 1.10 mg/dL 10/14/2024 4:45 AM EDT [facility] Plasma 10/14/2024 2:53 AM EDT 10/14/2024 4:16 AM EDT Eileen Schroeder MD, PhD LAB BLOOD ORDERABLES Final Result Performing Organization Address [facility]/ZIP Co de Phone Number [facility] [address] * Magnesium (10/14/2024 2:53 AM EDT) Magnesium 1.9 1.5 - 2.5 mg/dL 10/14/2024 4:45 AM EDT [facility] Plasma 10/14/2024 2:53 AM EDT 10/14/2024 4:16 AM EDT Eileen Schroeder MD, PhD LAB BLOOD ORDERABLES Final Result [facility] [address] * (ABNORMAL) Renal Function Panel w/EGFR (10/14/2024 2:53 AM EDT) Sodium 136 133 - 146 mmol/L 10/14/2024 4:45 AM EDT [facility] Potassium 3.5 3.5 - 5.3 mmol/L 10/14/2024 4:45 AM EDT [facility] Chloride 107 98 - 110 mmol/L 10/14/2024 4:45 AM EDT [facility] CO2 16(L) 21 - 33 mmol/L 10/14/2024 4:45 AM EDT [facility] Anion Gap 13 3 - 16 mmol/L 10/14/2024 4:45 AM EDT [facility] BUN 55(H) 7 - 25 mg/dL 10/14/2024 4:45 AM EDT [facility] Creatinine 3.01(H) 0.60 - 1.30 mg/dL 10/14/2024 4:45 AM EDT [facility] Glucose 95 70 - 100 mg/dL 10/14/2024 4:45 AM EDT [facility] Calcium 8.5(L) 8.6 - 10.3 mg/dL 10/14/2024 4:45 AM EDT [facility] Phosphorus 4.4 2.1 - 4.7 mg/dL 10/14/2024 4:45 AM EDT [facility] Albumin 3.3(L) 3.5 - 5.7 g/dL 10/14/2024 4:45 AM EDT [facility] Osmolality, Calculated 297 278 - 305 mOsm/kg 10/14/2024 4:45 AM EDT [facility] EGFR 26 10/14/2024 4:45 AM EDT [facility] Comment:As of 2021, the estimated GFR [...] Final Result [facility] [address] * (ABNORMAL) CBC (10/14/2024 2:53 AM EDT) WBC 5.5 3.8 - 10.8 10E3/uL 10/14/2024 5:00 AM EDT [facility] RBC 2.09(L) 4.20 - 5.80 10E6/uL 10/14/2024 5:00 AM EDT [facility] Hemoglobin 7.6(L) 13.2 - 17.1 g/dL 10/14/2024 5:00 AM EDT [facility] Hematocrit 21.3(L) 38.5 - 50.0 % 10/14/2024 5:00 AM EDT [facility] MCV 101.7(H) 80.0 - 100.0 fL 10/14/2024 5:00 AM EDT [facility] MCH 36.3(H) 27.0 - 33.0 pg 10/14/2024 5:00 AM EDT [facility] MCHC 35.7 32.0 - 36.0 g/dL 10/14/2024 5:00 AM EDT [facility] RDW 17.6(H) 11.0 - 15.0 % 10/14/2024 5:00 AM EDT [facility] Platelets 35(L) 140 - 400 10E3/uL 10/14/2024 5:00 AM EDT [facility] Comment: Specimen checked for clots. None detected. Slide Reviewed for PLT Clumps. None Seen. MPV 8.5 7.5 - 11.5 fL 10/14/2024 5:00 AM EDT [facility] Whole Blood 10/14/2024 2:53 AM EDT 10/14/2024 4:17 AM EDT Eileen Schroeder MD, PhD LAB BLOOD ORDERABLES Final Result Performing Organization Address City/State/[facility] Co de Phone Number [facility] [address] [place] [address], [facility] * Cardiac Cath Documents [...] mL of GADOBUTROL 1 MMOL/ML INTRAVENOUS SYRINGE ([facility]) administered intravenously COMPARISON: CT 09/03/2024. Ultrasound [...] mL of GADOBUTROL 1 MMOL/ML INTRAVENOUS SYRINGE ([facility])administered intravenously COMPARISON: CT 09/03/2024. Ultrasound 10/07/2024. [...] Final Result [facility] [address] * (ABNORMAL) Hepatic Function Panel (10/13/2024 5:35 AM EDT) Total Bilirubin 6.5(H) 0.0 - 1.5 mg/dL 10/13/2024 6:30 AM EDT [facility] Bilirubin, Direct 3.53(H) 0.00 - 0.40 mg/dL 10/13/2024 6:30 AM EDT [facility] AST 42(H) 13 - 39 U/L 10/13/2024 6:30 AM EDT [facility] ALT 19 7 - 52 U/L 10/13/2024 6:30 AM EDT [facility] Alkaline Phosphatase 108 36 - 125 U/L 10/13/2024 6:30 AM EDT [facility] Total Protein 4.4(L) 6.4 - 8.9 g/dL 10/13/2024 6:30 AM EDT [facility] Albumin 3.1(L) 3.5 - 5.7 g/dL 10/13/2024 6:30 AM EDT [facility] Bilirubin, Indirect 2.97(H) 0.00 - 1.10 mg/dL 10/13/2024 6:30 AM EDT [facility] Plasma 10/13/2024 5:35 AM EDT 10/13/2024 5:52 AM EDT Eileen Schroeder MD, PhD LAB BLOOD ORDERABLES Final Result Performing Organization Address [facility]/ZIP Co de Phone Number [facility] [address] * Magnesium (10/13/2024 5:35 AM EDT) Magnesium 2.0 1.5 - 2.5 mg/dL 10/13/2024 6:30 AM EDT [facility] Plasma 10/13/2024 5:35 AM EDT 10/13/2024 5:52 AM EDT Eileen Schroeder MD, PhD LAB BLOOD ORDERABLES Final Result Performing Organization Address [facility] Co de Phone Number [facility] [address] * (ABNORMAL) Renal Function Panel w/EGFR (10/13/2024 5:35 AM EDT) Sodium 134 133 - 146 mmol/L 10/13/2024 6:30 AM EDT [facility] Potassium 3.7 3.5 - 5.3 mmol/L 10/13/2024 6:30 AM EDT [facility] Chloride 109 98 - 110 mmol/L 10/13/2024 6:30 AM EDT [facility] CO2 14(L) 21 - 33 mmol/L 10/13/2024 6:30 AM EDT [facility] Anion Gap 11 3 - 16 mmol/L 10/13/2024 6:30 AM EDT [facility] BUN 54(H) 7 - 25 mg/dL 10/13/2024 6:30 AM EDT [facility] Creatinine 2.99(H) 0.60 - 1.30 mg/dL 10/13/2024 6:30 AM EDT [facility] Glucose 116(H) 70 - 100 mg/dL 10/13/2024 6:30 AM EDT [facility] Calcium 8.3(L) 8.6 - 10.3 mg/dL 10/13/2024 6:30 AM EDT [facility] Phosphorus 4.5 2.1 - 4.7 mg/dL 10/13/2024 6:30 AM EDT [facility] Albumin 3.1(L) 3.5 - 5.7 g/dL 10/13/2024 6:30 AM EDT [facility] Osmolality, Calculated 294 278 - 305 mOsm/kg 10/13/2024 6:30 AM EDT [facility] EGFR 26 10/13/2024 6:30 AM EDT [facility] Comment:As of 2021, the estimated GFR [...] Final Result [facility] [address] [place] [address], [facility] * (ABNORMAL) CBC (10/13/2024 5:35 AM EDT) WBC 4.7 3.8 - 10.8 10E3/uL 10/13/2024 6:22 AM EDT [facility] RBC 2.06(L) 4.20 - 5.80 10E6/uL 10/13/2024 6:22 AM EDT [facility] Hemoglobin 7.4(L) 13.2 - 17.1 g/dL 10/13/2024 6:22 AM EDT [facility] Hematocrit 21.7(L) 38.5 - 50.0 % 10/13/2024 6:22 AM EDT [facility] MCV 105.4(H) 80.0 - 100.0 fL 10/13/2024 6:22 AM EDT [facility] MCH 35.9(H) 27.0 - 33.0 pg 10/13/2024 6:22 AM EDT [facility] MCHC 34.0 32.0 - 36.0 g/dL 10/13/2024 6:22 AM EDT [facility] [facility] RDW 18.5(H) 11.0 - 15.0 % 10/13/2024 6:22 AM EDT [facility] Platelets 35(L) 140 - 400 10E3/uL 10/13/2024 6:22 AM EDT [facility] Comment: CNV Specimen checked for clots. None detected. MPV 8.4 7.5 - 11.5 fL 10/13/2024 6:22 AM EDT [facility] Whole Blood 10/13/2024 5:35 AM EDT 10/13/2024 5:53 AM EDT us Eileen Schroeder MD, PhD LAB BLOOD ORDERABLES Final Result Performing Organization Address City/State/[facility] Co de Phone Number [facility] [address] * (ABNORMAL) Ammonia (10/13/2024 5:35 AM EDT) Ammonia 203(HH) 27 - 90 ug/dL 10/13/2024 7:16 AM EDT [facility] Comment: HEMOLYSIS EVIDENT. RESULTS MAY BE INFLUENCED. Critical Result S_[id number] Called to and read back by: KEY MELO RN at: 10/13/2024 07:15:55 by:NISREEN Plasma 10/13/2024 5:35 AM EDT 10/13/2024 6:19 AM EDT us Ellis Mays DO LAB BLOOD ORDERABLES Final Resul t Performing Organization Address City/[facility]/ZIP Co de Phone Number [facility] [address] * CARISA Rhythm Strip - Scan (10/12/2024 10:30 PM EDT) us Scanning Uchhim SCAN DOCS - NO RESULTS Final Res ult * (ABNORMAL) Protime-INR (10/12/2024 5:44 AM EDT) Protime 25.7(H) 12.1 - 15.1 seconds 10/12/2024 6:12 AM EDT [facility] INR 2.3(H) 0.9 - 1.1 10/12/2024 6:12 AM EDT [facility] Comment: RECOMMENDED THERAPEUTIC RANGES USING INR : Stable oral anticoagulant therapy: 2.0 - 3.0 Mechanical prosthetic heart valve: 2.5 - 3.5 Recurrent acute myocardial infarction: 2.5 - 3.5 Plasma 10/12/2024 5:44 AM EDT 10/12/2024 5:58 AM EDT Eileen Schroeder MD, PhD LAB BLOOD ORDERABLES Final Result Performing Organization Address [facility]/ZIP Co de Phone Number [facility] [address] [facility]. [address] * (ABNORMAL) Hepatic Function Panel (10/12/2024 5:44 AM EDT) Total Bilirubin 6.5(H) 0.0 - 1.5 mg/dL 10/12/2024 6:29 AM EDT [facility] Bilirubin, Direct 3.64(H) 0.00 - 0.40 mg/dL 10/12/2024 6:29 AM EDT [facility] AST 40(H) 13 - 39 U/L 10/12/2024 6:29 AM EDT [facility] ALT 19 7 - 52 U/L 10/12/2024 6:29 AM EDT [facility] Alkaline Phosphatase 99 36 - 125 U/L 10/12/2024 6:29 AM EDT [facility] Total Protein 4.2(L) 6.4 - 8.9 g/dL 10/12/2024 6:29 AM EDT [facility] Albumin 3.1(L) 3.5 - 5.7 g/dL 10/12/2024 6:29 AM EDT [facility] Bilirubin, Indirect 2.86(H) 0.00 - 1.10 mg/dL 10/12/2024 6:29 AM EDT [facility] Plasma 10/12/2024 5:44 AM EDT 10/12/2024 5:58 AM EDT Eileen Schroeder MD, PhD LAB BLOOD ORDERABLES Final Result Performing Organization Address [facility]/ZIP Co de Phone Number [facility] [address] * Magnesium (10/12/2024 5:44 AM EDT) Magnesium 1.9 1.5 - 2.5 mg/dL 10/12/2024 6:29 AM EDT [facility] Plasma 10/12/2024 5:44 AM EDT 10/12/2024 5:58 AM EDT Eileen Schroeder MD, PhD LAB BLOOD ORDERABLES Final Result [facility] [address] * (ABNORMAL) Renal Function Panel w/EGFR (10/12/2024 5:44 AM EDT) Sodium 135 133 - 146 mmol/L 10/12/2024 6:29 AM EDT [facility] Potassium 3.7 3.5 - 5.3 mmol/L 10/12/2024 6:29 AM EDT [facility] Chloride 109 98 - 110 mmol/L 10/12/2024 6:29 AM EDT [facility] CO2 17(L) 21 - 33 mmol/L 10/12/2024 6:29 AM EDT [facility] Anion Gap 9 3 - 16 mmol/L 10/12/2024 6:29 AM EDT [facility] BUN 52(H) 7 - 25 mg/dL 10/12/2024 6:29 AM EDT [facility] Creatinine 2.94(H) 0.60 - 1.30 mg/dL 10/12/2024 6:29 AM EDT [facility] Glucose 121(H) 70 - 100 mg/dL 10/12/2024 6:29 AM EDT [facility] Calcium 8.5(L) 8.6 - 10.3 mg/dL 10/12/2024 6:29 AM EDT [facility] Phosphorus 4.6 2.1 - 4.7 mg/dL 10/12/2024 6:29 AM EDT [facility] Albumin 3.1(L) 3.5 - 5.7 g/dL 10/12/2024 6:29 AM EDT [facility] Osmolality, Calculated 295 278 - 305 mOsm/kg 10/12/2024 6:29 AM EDT [facility] EGFR 27 10/12/2024 6:29 AM EDT [facility] Comment:As of 2021, the estimated GFR [...] Final Result [facility] [address] [place] [id number], [facility] * (ABNORMAL) CBC (10/12/2024 5:44 AM EDT) WBC 3.3(L) 3.8 - 10.8 10E3/uL 10/12/2024 7:06 AM EDT [facility] RBC 1.95(L) 4.20 - 5.80 10E6/uL 10/12/2024 7:06 AM EDT [facility] Hemoglobin 7.2(L) 13.2 - 17.1 g/dL 10/12/2024 7:06 AM EDT [facility] Hematocrit 19.7(L) 38.5 - 50.0 % 10/12/2024 7:06 AM EDT [facility] MCV 101.2(H) 80.0 - 100.0 fL 10/12/2024 7:06 AM EDT [facility] MCH 37.0(H) 27.0 - 33.0 pg 10/12/2024 7:06 AM EDT [facility] MCHC 36.5(H) 32.0 - 36.0 g/dL 10/12/2024 7:06 AM EDT [facility] RDW 17.6(H) 11.0 - 15.0 % 10/12/2024 7:06 AM EDT [facility] Platelets 30(L) 140 - 400 10E3/uL 10/12/2024 7:06 AM EDT [facility] Comment: Specimen checked for clots. None detected. Slide Reviewed for PLT Clumps. None Seen. Platelet Estimate Decreased 10/12/2024 7:06 AM EDT [facility] MPV 8.3 7.5 - 11.5 fL 10/12/2024 7:06 AM EDT [facility] Whole Blood 10/12/2024 5:44 AM EDT 10/12/2024 5:58 AM EDT Narrative [facility] - 10/12/2024 7:06 AM EDT Peripheral blood smear was scanned per review criteria approved by the laboratory medical record technician. us Eileen Urbano Albino MD, PhD LAB BLOOD ORDERABLES Final Result [facility] [address] * CARISA Rhythm Strip - Scan (10/11/2024 10:04 PM EDT) us Scanning Uchhim SCAN DOCS - NO RESULTS Final Res ult * (ABNORMAL) Protime-INR (10/11/2024 3:02 AM EDT) Protime 26.8(H) 12.1 - 15.1 seconds 10/11/2024 3:30 AM EDT [facility] INR 2.4(H) 0.9 - 1.1 10/11/2024 3:30 AM EDT [facility] Comment: RECOMMENDED THERAPEUTIC RANGES USING INR : Stable oral anticoagulant therapy: 2.0 - 3.0 Mechanical prosthetic heart valve: 2.5 - 3.5 Recurrent acute myocardial infarction: 2.5 - 3.5 Plasma 10/11/2024 3:02 AM EDT 10/11/2024 3:08 AM EDT Eileen Schroeder MD, PhD LAB BLOOD ORDERABLES Final Result Performing Organization Address [facility]/ZIP Co de Phone Number [facility] [address] [facility]. [address] * (ABNORMAL) Hepatic Function Panel (10/11/2024 3:02 AM EDT) Total Bilirubin 7.3(H) 0.0 - 1.5 mg/dL 10/11/2024 3:38 AM EDT [facility] Bilirubin, Direct 3.85(H) 0.00 - 0.40 mg/dL 10/11/2024 3:38 AM EDT [facility] AST 39 13 - 39 U/L 10/11/2024 3:38 AM EDT [facility] ALT 20 7 - 52 U/L 10/11/2024 3:38 AM EDT [facility] Alkaline Phosphatase 88 36 - 125 U/L 10/11/2024 3:38 AM EDT [facility] Total Protein 4.5(L) 6.4 - 8.9 g/dL 10/11/2024 3:38 AM EDT [facility] Albumin 3.3(L) 3.5 - 5.7 g/dL 10/11/2024 3:38 AM EDT [facility] Bilirubin, Indirect 3.45(H) 0.00 - 1.10 mg/dL 10/11/2024 3:38 AM EDT [facility] Plasma 10/11/2024 3:02 AM EDT 10/11/2024 3:08 AM EDT us Eileen Schroeder MD, PhD LAB BLOOD ORDERABLES Final Result Performing Organization Address [facility]/ZIP Co de Phone Number [facility] [address] * Magnesium (10/11/2024 3:02 AM EDT) Magnesium 2.0 1.5 - 2.5 mg/dL 10/11/2024 3:38 AM EDT [facility] Plasma 10/11/2024 3:02 AM EDT 10/11/2024 3:08 AM EDT us Eileen Schroeder MD, PhD LAB BLOOD ORDERABLES Final Result Performing Organization Address City/[facility]/ZIP Co de Phone Number [facility] [address] * (ABNORMAL) Renal Function Panel w/EGFR (10/11/2024 3:02 AM EDT) Sodium 134 133 - 146 mmol/L 10/11/2024 3:38 AM EDT [facility] Potassium 3.6 3.5 - 5.3 mmol/L 10/11/2024 3:38 AM EDT [facility] Chloride 108 98 - 110 mmol/L 10/11/2024 3:38 AM EDT [facility] CO2 16(L) 21 - 33 mmol/L 10/11/2024 3:38 AM EDT [facility] Anion Gap 10 3 - 16 mmol/L 10/11/2024 3:38 AM EDT [facility] BUN 49(H) 7 - 25 mg/dL 10/11/2024 3:38 AM EDT [facility] Creatinine 2.77(H) 0.60 - 1.30 mg/dL 10/11/2024 3:38 AM EDT [facility] Glucose 112(H) 70 - 100 mg/dL 10/11/2024 3:38 AM EDT [facility] Calcium 8.9 8.6 - 10.3 mg/dL 10/11/2024 3:38 AM EDT [facility] Phosphorus 3.5 2.1 - 4.7 mg/dL 10/11/2024 3:38 AM EDT [facility] Albumin 3.3(L) 3.5 - 5.7 g/dL 10/11/2024 3:38 AM EDT [facility] Osmolality, Calculated 292 278 - 305 mOsm/kg 10/11/2024 3:38 AM EDT [facility] EGFR 29 10/11/2024 3:38 AM EDT [facility] Comment:As of 2021, the estimated GFR [...] Final Result [facility] [address] [place] [address], [facility] * (ABNORMAL) CBC (10/11/2024 3:02 AM EDT) WBC 4.0 3.8 - 10.8 10E3/uL 10/11/2024 3:55 AM EDT [facility] RBC 2.11(L) 4.20 - 5.80 10E6/uL 10/11/2024 3:55 AM EDT [facility] Hemoglobin 7.7(L) 13.2 - 17.1 g/dL 10/11/2024 3:55 AM EDT [facility] Hematocrit 21.2(L) 38.5 - 50.0 % 10/11/2024 3:55 AM EDT [facility] MCV 100.5(H) 80.0 - 100.0 fL 10/11/2024 3:55 AM EDT [facility] MCH 36.4(H) 27.0 - 33.0 pg 10/11/2024 3:55 AM EDT [facility] MCHC 36.2(H) 32.0 - 36.0 g/dL 10/11/2024 3:55 AM EDT [facility] RDW 17.9(H) 11.0 - 15.0 % 10/11/2024 3:55 AM EDT [facility] Platelets 32(L) 140 - 400 10E3/uL 10/11/2024 3:55 AM EDT [facility] Comment: Specimen checked for clots. None detected. Slide Reviewed for PLT Clumps. None Seen. Platelet Estimate Decreased 10/11/2024 3:55 AM EDT [facility] MPV 8.1 7.5 - 11.5 fL 10/11/2024 3:55 AM EDT [facility] Whole Blood 10/11/2024 3:02 AM EDT 10/11/2024 3:08 AM EDT Narrative [facility] - 10/11/2024 3:55 AM EDT Peripheral blood smear was scanned per review criteria approved by the laboratory medical record technician. Eileen Schroeder MD, PhD LAB BLOOD ORDERABLES Final Result [facility] [address] * Vancomycin, random (10/11/2024 3:02 AM EDT) Vancomycin Random 13.4 ug/mL 10/11/2024 3:37 AM EDT [facility] Comment:Reference range not established for this test. Plasma 10/11/2024 3:0 2 AM EDT 10/11/2024 3:08 AM EDT us Jodi Ortiz PharmD LAB BLOOD ORDERABLES Final Result Performing Organization Address City/[facility]/ZIP Co de Phone Number [facility] [address] * IR Paracentesis incl imaging guide [...] diagnostic and therapeutic paracentesis. Bakari Wahl CNP, Embroidery Machine Operator Procedure and Findings: The procedure was [...] Using ultrasound guidance, a 10 cm, 5-F Knowl[place] Centesis catheter was placed into the right [...] for diagnostic andtherapeutic paracentesis. Bakari Wahl CNP, Embroidery Machine Operator Procedure and Findings: The procedure was [...] EDT [facility] Neutrophil %, Fluid 9 % 10/10/2024 5:29 PM EDT [facility] Lymphocytes %, Fluid 13 % 10/10/2024 5:29 PM EDT [facility] Mesothelial %, Fluid 6 % 10/10/2024 5:29 PM EDT [facility] Macrophage %, Fluid 72 % 10/10/2024 5:29 PM EDT [facility] RBC, Fluid 2,662 /uL 10/10/2024 4:41 PM EDT [facility] Total Nucleated Cells, Fluid 89 /uL 10/10/2024 4:41 PM EDT [facility] Comment:Total Nucleated Cell s represent WBCs and other nucleated cells in the fluid such as lining cells. Ascitic Fluid ABDOMEN / Unknown 1:51 PM EDT 10/10/2024 3:56 PM EDT us Gerri Peterson MD BODY FLUIDS AND STOOLS ORDERABL ES Final Result [facility] [address] * Body Fluid Culture plus Stain (10/10/2024 1:51 PM EDT) Gram Stain Result Cytospin Results: [facility] Gram Stain Result Polymorphonuclear Leukocytes Seen; [facility] Gram Stain Result No Organisms Seen; [facility] Culture Result No Growth After 5 Days [facility] Fluid ABDOMEN / Unknown 10/10/2024 1:51 PM EDT 10/10/2024 3:56 PM EDT us Gerri Peterson MD MICROBIOLOGY - GENERAL ORDERABL ES Final Result [facility] [address] * UPPER GI ENDOSCOPY (10/10/2024 11:48 AM EDT) 10/10/2024 11:4 8 AM EDT Narrative [facility] - 10/10/2024 12:34 PM EDT [id number] Procedure Date: 10/10/2024 11:48 AM Patient Name: Julien Gilbert Date of : 1985 Admit Type: Inpatient Age: 39 Gender: Male Note Status: Finalized Attending MD: Lino Soto MD, [id number] Procedure: Upper GI endoscopy Indications: Gastroesopahgeal variceal [...] verified by the physician, the nurse, the structural steel fitter and the airframe technician in the pre-procedure area in the [...] to hypotension Procedure Code(s): --- Professional --- 54808, GC, Esophagogastroduodenoscopy, flexible, transoral; diagnostic, including collection of specimen(s) by brushing or washing, when performed (separate procedure) Diagnosis Code(s): --- Professional --- I85.00, Esophageal varices without bleeding K76.6, Portal hypertension K31.89, Other diseases of stomach and duodenum CPT copyright 2022 [employer]. All rights reserved. The codes documented in this report are preliminary and upon carving machine operator review may be revised to meet [...] In: 12:10:16 PM Scope Out: 12:17:[address] [place] [address], [id number] us Provider Not In System PROCEDURE/MINOR SURGICAL ORDERABLES Final Result [facility] * (ABNORMAL) Protime-INR (10/10/2024 5:23 AM EDT) Protime 23.9(H) 12.1 - 15.1 seconds 10/10/2024 6:11 AM EDT [facility] INR 2.1(H) 0.9 - 1.1 10/10/2024 [...] Final Result [facility] [address] * (ABNORMAL) Hepatic Function Panel (10/10/2024 5:23 AM EDT) Total Bilirubin 8.6(H) 0.0 - 1.5 mg/dL 10/10/2024 6:21 AM EDT [facility] Bilirubin, Direct 4.65(H) 0.00 - 0.40 mg/dL 10/10/2024 6:21 AM EDT [facility] AST 40(H) 13 - 39 U/L 10/10/2024 6:21 AM EDT [facility] ALT 22 7 - 52 U/L 10/10/2024 6:21 AM EDT [facility] Alkaline Phosphatase 118 36 - 125 U/L 10/10/2024 6:21 AM EDT [facility] Total Protein 4.6(L) 6.4 - 8.9 g/dL 10/10/2024 6:21 AM EDT [facility] Albumin 3.3(L) 3.5 - 5.7 g/dL 10/10/2024 6:21 AM EDT [facility] Bilirubin, Indirect 3.95(H) 0.00 - 1.10 mg/dL 10/10/2024 6:21 AM EDT [facility] Plasma 10/10/2024 5:23 AM EDT 10/10/2024 5:50 AM EDT Eileen Schroeder MD, PhD LAB BLOOD ORDERABLES Final Result [facility] [address] [facility]. [address] * Magnesium (10/10/2024 5:23 AM EDT) Magnesium 1.9 1.5 - 2.5 mg/dL 10/10/2024 6:21 AM EDT [facility] Plasma 10/10/2024 5:23 AM EDT 10/10/2024 5:50 AM EDT us Eileen Schroeder MD, PhD LAB BLOOD ORDERABLES Final Result Performing Organization Address City/[facility]/ZIP Co de Phone Number [facility] [address] [facility]. [address] * (ABNORMAL) Renal Function Panel w/EGFR (10/10/2024 5:23 AM EDT) Sodium 135 133 - 146 mmol/L 10/10/2024 6:21 AM EDT [facility] Potassium 3.6 3.5 - 5.3 mmol/L 10/10/2024 6:21 AM EDT [facility] Chloride 108 98 - 110 mmol/L 10/10/2024 6:21 AM EDT [facility] CO2 17(L) 21 - 33 mmol/L 10/10/2024 6:21 AM EDT [facility] Anion Gap 10 3 - 16 mmol/L 10/10/2024 6:21 AM EDT [facility] BUN 53(H) 7 - 25 mg/dL 10/10/2024 6:21 AM EDT [facility] Creatinine 2.85(H) 0.60 - 1.30 mg/dL 10/10/2024 6:21 AM EDT [facility] Glucose 113(H) 70 - 100 mg/dL 10/10/2024 6:21 AM EDT [facility] Calcium 9.0 8.6 - 10.3 mg/dL 10/10/2024 6:21 AM EDT [facility] Phosphorus 3.3 2.1 - 4.7 mg/dL 10/10/2024 6:21 AM EDT [facility] Albumin 3.3(L) 3.5 - 5.7 g/dL 10/10/2024 6:21 AM EDT [facility] Osmolality, Calculated 295 278 - 305 mOsm/kg 10/10/2024 6:21 AM EDT [facility] EGFR 28 10/10/2024 6:21 AM EDT [facility] Comment:As of 2021, the estimated GFR [...] Final Result [facility] [address] [place] [address], [facility] * (ABNORMAL) CBC (10/10/2024 5:23 AM EDT) WBC 5.1 3.8 - 10.8 10E3/uL 10/10/2024 6:14 AM EDT [facility] RBC 2.04(L) 4.20 - 5.80 10E6/uL 10/10/2024 6:14 AM EDT [facility] Hemoglobin 7.3(L) 13.2 - 17.1 g/dL 10/10/2024 6:14 AM EDT [facility] Hematocrit 20.6(L) 38.5 - 50.0 % 10/10/2024 6:14 AM EDT [facility] MCV 101.2(H) 80.0 - 100.0 fL 10/10/2024 6:14 AM EDT [facility] MCH 36.0(H) 27.0 - 33.0 pg 10/10/2024 6:14 AM EDT [facility] MCHC 35.5 32.0 - 36.0 g/dL 10/10/2024 6:14 AM EDT [facility] RDW 17.6(H) 11.0 - 15.0 % 10/10/2024 6:14 AM EDT [facility] Platelets 39(L) 140 - 400 10E3/uL 10/10/2024 6:14 AM EDT [facility] Comment: CNV Specimen checked for clots. None detected. MPV 9.8 7.5 - 11.5 fL 10/10/2024 6:14 AM EDT [facility] Whole Blood 10/10/2024 5:23 AM EDT 10/10/2024 5:51 AM EDT us Eileen Schroeder MD, PhD LAB BLOOD ORDERABLES Final Result [facility] [address] * Vancomycin, random (10/10/2024 5:23 AM EDT) [facility] Vancomycin Random 16.4 ug/mL 10/10/2024 6:22 AM EDT [facility] Comment:Reference range not established for this test. Plasma 10/10/2024 5:23 AM EDT 10/10/2024 5:51 AM EDT us Jodi FreireD LAB BLOOD ORDERABLES Final Result [facility] [address] [facility]. 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 The infusion was terminated [...] at baseline or with provocation, shows no ksbho-me-tega atrial level shunt. - Pulmonary arteries: Systolic [...] at baseline or with provocation, shows no ukkbw-ot-iiwd atrial level shunt. Pulmonary artery: - Systolic [...] at baseline or with provocation, shows no txbnd-vy-zyly atrial level shunt. Pericardium: - There is [...] peak heart rate and blood pressure was [id number] Hg/min. Stress testing did not produce any [...] Reviewed and confirmed by Tonya Henriquez MD [id number] Procedure Note Tonya Henriquez MD - 10/09/2024 * [facility]* [address] [place] [address] Stress Echocardiogram Patient: Julien Gilbert Room: 8142 Height: 76in MR Number: [id number] : 1985 Weight: 262lb Account: [id number] Gender: M BP: 125 / 77 Study Date: 10/09/2024 Age: 39 BSA: 2.48m^2 Referring physician: Gerri Peterson Interpreting physician: Tonya Henriquez MD FELLOW Lisa Jha MD PERFORMING Tonya Henriquez MD [employer] ORDERING Gerri Peterson REFERRING Gerri [...] was augmented by the addition of 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 The infusion was terminated [...] at baseline or with provocation, shows no gwpza-qo-nghn atrial level shunt. - Pulmonary arteries: Systolic [...] study at baseline or with provocation, showsno uuosb-jz-egsb atrial level shunt. Pulmonary artery: - Systolic [...] at baseline or with provocation, shows no nlvhe-uj-zcqs atrial level shunt. Pericardium: - There is [...] heart rate). The maximal predicted heart rate [id number]. The target heart rate was 152bpm. The target heart rate was achieved.The heart rate response to stress is normal. There is a normal resting blood pressure with an appropriate response to stress. The rate-pressureproduct for the peak heart rate and blood pressure was [id number] Hg/min. Stress testing did not produce any [...] Reviewed and confirmed by Tonya Henriquez MD [id number] us Gerri Peterson MD CV ECHO ORDERABLES Final Result * (ABNORMAL) Renal Function Panel w/EGFR, STAT (10/09/2024 1:05 PM EDT) Sodium 134 133 - 146 mmol/L 10/09/2024 2:10 PM EDT [facility] Potassium 3.7 3.5 - 5.3 mmol/L 10/09/2024 2:10 PM EDT [facility] Chloride 105 98 - 110 mmol/L 10/09/2024 2:10 PM EDT [facility] CO2 17(L) 21 - 33 mmol/L 10/09/2024 2:10 PM EDT [facility] Anion Gap 12 3 - 16 mmol/L 10/09/2024 2:10 PM EDT [facility] BUN 53(H) 7 - 25 mg/dL 10/09/2024 2:10 PM EDT [facility] Creatinine 2.89(H) 0.60 - 1.30 mg/dL 10/09/2024 2:10 PM EDT [facility] Glucose 108(H) 70 - 100 mg/dL 10/09/2024 2:10 PM EDT [facility] Calcium 9.3 8.6 - 10.3 mg/dL 10/09/2024 2:10 PM EDT [facility] Phosphorus 3.4 2.1 - 4.7 mg/dL 10/09/2024 2:10 PM EDT [facility] Albumin 3.6 3.5 - 5.7 g/dL 10/09/2024 2:10 PM EDT [facility] Osmolality, Calculated 293 278 - 305 mOsm/kg 10/09/2024 2:10 PM EDT [facility] EGFR 27 10/09/2024 2:10 PM EDT [facility] Comment:As of 2021, the estimated GFR [...] Final Result [facility] [address] [id number], [facility] * (ABNORMAL) Renal Function Panel w/EGFR, STAT (10/09/2024 8:14 AM EDT) Sodium 134 133 - 146 mmol/L 10/09/2024 8:47 AM EDT [facility] Potassium 3.4(L) 3.5 - 5.3 mmol/L 10/09/2024 8:47 AM EDT [facility] Chloride 107 98 - 110 mmol/L 10/09/2024 8:47 AM EDT [facility] CO2 17(L) 21 - 33 mmol/L 10/09/2024 8:47 AM EDT [facility] Anion Gap 10 3 - 16 mmol/L 10/09/2024 8:47 AM EDT [facility] BUN 54(H) 7 - 25 mg/dL 10/09/2024 8:47 AM EDT [facility] Creatinine 3.04(H) 0.60 - 1.30 mg/dL 10/09/2024 8:47 AM EDT [facility] Glucose 124(H) 70 - 100 mg/dL 10/09/2024 8:47 AM EDT [facility] Calcium 9.0 8.6 - 10.3 mg/dL 10/09/2024 8:47 AM EDT [facility] Phosphorus 3.5 2.1 - 4.7 mg/dL 10/09/2024 8:47 AM EDT [facility] Albumin 3.4(L) 3.5 - 5.7 g/dL 10/09/2024 8:47 AM EDT [facility] Osmolality, Calculated 294 278 - 305 mOsm/kg 10/09/2024 8:47 AM EDT [facility] EGFR 26 10/09/2024 8:47 AM EDT [facility] Comment:As of 2021, the estimated GFR [...] C, Talia M, Olivia [place], Emerita [place], Mdaelyn [place], Felicia [place], et al. A Unifying Approach for GFR Estimation: Recommendations of the NKF-ASN Task Force on Reassessing the inclusion of Race in Diagnosing Kidney Disease. Am J Kidney Dis. 2020. Plasma 10/09/2024 8:14 AM EDT 10/09/2024 8:19 AM EDT us Gerri Peterson MD LAB BLOOD ORDERABLES Final Resu lt [facility] [address] * Prepare RBC, leukoreduced, 1 Units (10/09/2024 6:16 AM EDT) Product Code [id number] [facility] Unit Number [id number] [facility] Dispense Status Presumed Transfused_PT [facility] Blood Expiration Date [id number] HCLL Coding System [id number] [facility] Blood Bank Product us Eileen Schroeder MD, PhD BLOOD BANK PRODUCT OR DERABLES Final Result [facility] * (ABNORMAL) Protime-INR (10/09/2024 4:59 AM EDT) Pathologist [facility] Protime 26.5(H) 12.1 - 15.1 seconds 10/09/2024 [...] BLOOD ORDERABLES Final Result Performing Organization Address City/[facility] Co de Phone Number [facility] [address] * (ABNORMAL) Hepatic Function Panel (10/09/2024 4:59 AM EDT) Total Bilirubin 9.0(H) 0.0 - 1.5 mg/dL 10/09/2024 6:42 AM EDT [facility] Bilirubin, Direct 4.60(H) 0.00 - 0.40 mg/dL 10/09/2024 6:42 AM EDT [facility] AST 38 13 - 39 U/L 10/09/2024 6:42 AM EDT [facility] ALT 18 7 - 52 U/L 10/09/2024 6:42 AM EDT [facility] Alkaline Phosphatase 122 36 - 125 U/L 10/09/2024 6:42 AM EDT [facility] Total Protein 4.8(L) 6.4 - 8.9 g/dL 10/09/2024 6:42 AM EDT [facility] Albumin 3.4(L) 3.5 - 5.7 g/dL 10/09/2024 6:42 AM EDT [facility] Bilirubin, Indirect 4.40(H) 0.00 - 1.10 mg/dL 10/09/2024 6:42 AM EDT [facility] Plasma 10/09/2024 4:59 AM EDT 10/09/2024 5:57 AM EDT Eileen Schroeder MD, PhD LAB BLOOD ORDERABLES Final Result Performing Organization Address City/[facility] Co de Phone Number [facility] [address] * Magnesium (10/09/2024 4:59 AM EDT) Magnesium 1.8 1.5 - 2.5 mg/dL 10/09/2024 6:42 AM EDT [facility] Plasma 10/09/2024 4:59 AM EDT 10/09/2024 5:57 AM EDT Eileen Schroeder MD, PhD LAB BLOOD ORDERABLES Final Result Performing Organization Address [facility] Co de Phone Number [facility] [address] * (ABNORMAL) Renal Function Panel w/EGFR (10/09/2024 4:59 AM EDT) Sodium 134 133 - 146 mmol/L 10/09/2024 6:42 AM EDT [facility] Potassium 3.3(L) 3.5 - 5.3 mmol/L 10/09/2024 6:42 AM EDT [facility] Chloride 107 98 - 110 mmol/L 10/09/2024 6:42 AM EDT [facility] CO2 16(L) 21 - 33 mmol/L 10/09/2024 6:42 AM EDT [facility] Anion Gap 11 3 - 16 mmol/L 10/09/2024 6:42 AM EDT [facility] BUN 56(H) 7 - 25 mg/dL 10/09/2024 6:42 AM EDT [facility] Creatinine 2.98(H) 0.60 - 1.30 mg/dL 10/09/2024 6:42 AM EDT [facility] Glucose 112(H) 70 - 100 mg/dL 10/09/2024 6:42 AM EDT [facility] Calcium 9.0 8.6 - 10.3 mg/dL 10/09/2024 6:42 AM EDT [facility] Phosphorus 3.5 2.1 - 4.7 mg/dL 10/09/2024 6:42 AM EDT [facility] Albumin 3.4(L) 3.5 - 5.7 g/dL 10/09/2024 6:42 AM EDT [facility] Osmolality, Calculated 294 278 - 305 mOsm/kg 10/09/2024 6:42 AM EDT [facility] EGFR 26 10/09/2024 6:42 AM EDT [facility] Comment:As of 2021, the estimated GFR [...] Final Result [facility] [address] [facility] [place] [address], [facility] * (ABNORMAL) CBC (10/09/2024 4:59 AM EDT) WBC 4.6 3.8 - 10.8 10E3/uL 10/09/2024 6:21 AM EDT [facility] RBC 2.17(L) 4.20 - 5.80 10E6/uL 10/09/2024 6:21 AM EDT [facility] Hemoglobin 8.0(L) 13.2 - 17.1 g/dL 10/09/2024 6:21 AM EDT [facility] Hematocrit 21.8(L) 38.5 - 50.0 % 10/09/2024 6:21 AM EDT [facility] MCV 100.5(H) 80.0 - 100.0 fL 10/09/2024 6:21 AM EDT [facility] MCH 36.7(H) 27.0 - 33.0 pg 10/09/2024 6:21 AM EDT [facility] MCHC 36.5(H) 32.0 - 36.0 g/dL 10/09/2024 6:21 AM EDT [facility] RDW 18.1(H) 11.0 - 15.0 % 10/09/2024 6:21 AM EDT [facility] Platelets 36(L) 140 - 400 10E3/uL 10/09/2024 6:21 AM EDT [facility] Comment:Specimen checked for clots. None detected. MPV 8.3 7.5 - 11.5 fL 10/09/2024 6:21 AM EDT [facility] Whole Blood 10/09/2024 4:59 AM EDT 10/09/2024 5:56 AM EDT us Eileen Schroeder MD, PhD LAB BLOOD ORDERABLES Final Result [facility] [address] [place] [address], [facility] * Renal Tx Recipient (10/09/2024 4:59 AM EDT) Renal Transplant Recipient The request and specimen(s) for this test have been received and transported to the [facility] at [address] [place] [address]. The [facility] will report results directly to the client. 10/09/2024 7:26 AM EDT [facility] Blood 10/09/2024 4:59 AM EDT 10/09/2024 7:26 AM EDT us Aaron Gonzalez MD LAB BLOOD ORDERABLES Final Resu lt [facility] [address] [facility]. [address] * Vancomycin, random (10/09/2024 4:59 AM EDT) Vancomycin Random 11.0 ug/mL 10/09/2024 6:33 AM EDT [facility] Comment:Reference range not established for this test. Plasma 10/09/2024 4:59 AM EDT 10/09/2024 5:56 AM EDT us Jodi Ortiz PharmD LAB BLOOD ORDERABLES Final Result Performing Organization Address [facility]/ZIP Co de Phone Number [facility] [address] [facility]. [address] * (ABNORMAL) CBC (10/08/2024 5:52 PM EDT) WBC 5.6 3.8 - 10.8 10E3/uL 10/08/2024 6:52 PM EDT [facility] RBC 2.38(L) 4.20 - 5.80 10E6/uL 10/08/2024 6:52 PM EDT [facility] Hemoglobin 8.3(L) 13.2 - 17.1 g/dL 10/08/2024 6:52 PM EDT [facility] Hematocrit 24.6(L) 38.5 - 50.0 % 10/08/2024 6:52 PM EDT [facility] MCV 103.2(H) 80.0 - 100.0 fL 10/08/2024 6:52 PM EDT [facility] MCH 34.7(H) 27.0 - 33.0 pg 10/08/2024 6:52 PM EDT [facility] MCHC 33.6 32.0 - 36.0 g/dL 10/08/2024 6:52 PM EDT [facility] RDW 18.5(H) 11.0 - 15.0 % 10/08/2024 6:52 PM EDT [facility] Platelets 39(L) 140 - 400 10E3/uL 10/08/2024 6:52 PM EDT [facility] Comment:CNV MPV 8.1 7.5 - 11.5 fL 10/08/2024 6:52 PM EDT [facility] Whole Blood 10/08/2024 5:52 PM EDT 10/08/2024 6:45 PM EDT Eileen Schroeder MD, PhD LAB BLOOD ORDERABLES Final Result Performing Organization Address [facility]/ZIP Co de Phone Number [facility] [address] * Transfuse RBC Has consent been obtained? Yes; Transfusion Rate: Per dept routine (10/08/2024 1:17 PM EDT) Eileen Schroeder MD, PhD NURSING TREATMENT ORD ERABLES - BLOOD ADMIN Final Result Performing Organization Address City/[facility]/ZIP Co de Phone Number EXTERNAL * Transfuse RBC Has consent been obtained? Yes; Transfusion Rate: Per dept routine, 1 Units (10/08/2024 1:17 PM EDT) Eileen Schroeder MD, PhD NURSING TREATMENT ORD ERABLES - BLOOD ADMIN Final Result Performing Organization Address City/[facility] Co de Phone Number EXTERNAL * (ABNORMAL) MMR(IgG) Panel (Measles, Mumps, Rubella) (10/08/2024 10:25 AM EDT) Mumps IgG Positive 10/08/2024 11:39 AM EDT [facility] MUMPS IGG NUM 99.00(H) 0.0 - 8.9 U/mL 10/08/2024 11:39 AM EDT [facility] Rubella IgG Scr Positive 10/08/2024 11:40 AM EDT [facility] RUB NUM 4.15(H) 0.00 - 0.89 INDEX 10/08/2024 11:40 AM EDT [facility] Rubeola Ab, IgG Positive 10/08/2024 11:39 AM EDT [facility] RUB IGG NUM 273.00(H) 0.00 - 13.40 U/mL 10/08/2024 11:39 AM EDT [facility] Serum 10/08/2024 10:2 5 AM EDT 10/08/2024 10:49 AM EDT Narrative [facility] - 10/08/2024 11:40 AM EDT Presence [...] Final Resu lt Performing Organization Address [facility] Co de Phone Number [facility] [address] [facility]. [address] * (ABNORMAL) Hemoglobin A1C (10/08/2024 10:25 AM EDT) [facility] Hemoglobin A1C 3.7(L) 4.0 - 5.6 % 10/09/2024 1:22 PM EDT [facility] Comment: Hemoglobin A1c Interpretation Guidelines: Normal: [...] Final Resu lt Performing Organization Address [facility] Co de Phone Number [facility] [address] [facility]. [address] * (ABNORMAL) Vitamin D 25 Hydroxy (10/08/2024 10:25 AM EDT) Vit D, 25-Hydroxy 7.1(L) 30.0 - 100.0 ng/mL 10/08/2024 11:36 AM EDT [facility] Comment: Vitamin D deficiency has been defined by the [place] of Medicine (IOM) and an Endocrine Society [...] Resu lt [facility] [address] [id number] * Iron Studies (Iron + TIBC) [...] Resu lt [facility] [address] * (ABNORMAL) Ferritin (10/08/2024 10:25 AM EDT) Ferritin 706.9(H) 23.9 - 336.2 ng/mL 10/08/2024 11:35 AM EDT [facility] Serum 10/08/2024 10:2 5 AM EDT 10/08/2024 10:49 AM EDT us Gerri Peterson MD LAB BLOOD ORDERABLES Final Resu lt Performing Organization Address [facility]/ZIP Co de Phone Number [facility] [address] * QuantiFERON TB2 Ag (10/08/2024 10:25 AM EDT) QuantiFERON TB2 Ag Value 0.07 10/10/2024 10:41 AM EDT [facility] Plasma 10/08/2024 10:2 5 AM EDT 10/08/2024 11:05 AM EDT Gerri Peterson MD LAB BLOOD ORDERABLES Final Resu lt Performing Organization Address City/[facility]/ZIP Co de Phone Number [facility] [address] * QuantiFERON TB1 Ag (10/08/2024 10:25 AM EDT) QuantiFERON TB1 Ag Value 0.06 10/10/2024 10:41 AM EDT [facility] Plasma 10/08/2024 10:2 5 AM EDT 10/08/2024 11:05 AM EDT Gerri Peterson MD LAB BLOOD ORDERABLES Final Resu lt [facility] [address] * QuantiFERON Nil (10/08/2024 10:25 AM EDT) QuantiFERON Nil 0.06 10:41 AM EDT [facility] Plasma 10/08/2024 10:2 5 AM EDT 10/08/2024 11:05 AM EDT us Gerri Peterson MD LAB BLOOD ORDERABLES Final Resu lt [facility] [address] * QuantiFERON Mitogen (10/08/2024 10:25 AM EDT) QuantiFERON Interpretation Negative Negative 10/10/2024 10:41 AM EDT [facility] Comment:Negative result geovanny cates M. tuberculosis [...] EDT [facility] Plasma 10/08/2024 10:2 5 AM EDT 10/08/2024 11:05 AM EDT Narrative [facility] - 10/10/2024 10:41 AM EDT The [...] MD LAB BLOOD ORDERABLES Final Resu lt [facility] [address] * Reticulocyte Count, Auto (10/08/2024 7:41 AM EDT) Retic Ct Pct 1.35 0.50 - 2.00 % 10/08/2024 9:12 AM EDT [facility] Retic Ct Abs 26,190 25,000 - 90,000 /uL 10/08/2024 9:14 AM EDT [facility] Immature Retic Fract 0.37 0.09 - 0.56 10/08/2024 9:12 AM EDT [facility] Whole Blood 10/08/2024 7:41 AM EDT 10/08/2024 8:51 AM EDT us Angie Blanchard MD LAB BLOOD ORDERABLES Final Res ult Performing Organization Address City/[facility]/ZIP Co de Phone Number [facility] [address] [facility]. [address] * (ABNORMAL) Haptoglobin (10/08/2024 7:41 AM EDT) Haptoglobin <30(L) 44 - 215 mg/dL 10/08/2024 8:53 AM EDT [facility] Serum 10/08/2024 7:41 AM EDT 10/08/2024 7:51 AM EDT Eileen Schroeder MD, PhD LAB BLOOD ORDERABLES Final Result [facility] [address] * (ABNORMAL) CBC - Post Transfusion (10/08/2024 7:41 AM EDT) WBC 3.7(L) 3.8 - 10.8 10E3/uL 10/08/2024 8:34 AM EDT [facility] RBC 1.94(L) 4.20 - 5.80 10E6/uL 10/08/2024 8:34 AM EDT [facility] Hemoglobin 7.1(L) 13.2 - 17.1 g/dL 10/08/2024 8:34 AM EDT [facility] Hematocrit 20.0(L) 38.5 - 50.0 % 10/08/2024 8:34 AM EDT [facility] MCV 103.1(H) 80.0 - 100.0 fL 10/08/2024 8:34 AM EDT [facility] MCH 36.5(H) 27.0 - 33.0 pg 10/08/2024 8:34 AM EDT [facility] MCHC 35.4 32.0 - 36.0 g/dL 10/08/2024 8:34 AM EDT [facility] RDW 17.2(H) 11.0 - 15.0 % 10/08/2024 8:34 AM EDT [facility] Platelets 37(L) 140 - 400 10E3/uL 10/08/2024 8:34 AM EDT [facility] Comment: Specimen checked for clots. None detected. Slide Reviewed for PLT Clumps. None Seen. _Platelet Morphology Normal _Platelets Appear Decreased MPV 8.7 7.5 - 11.5 fL 10/08/2024 8:34 AM EDT [facility] Whole Blood 10/08/2024 7:41 AM EDT 10/08/2024 7:52 AM EDT [facility] - 10/08/2024 8:34 AM EDT Post-transfusion us Eileen Schroeder MD, PhD LAB BLOOD ORDERABLES Final Result [facility] [address] [place] [address], [facility] * Antibody Screen (10/08/2024 7:41 AM EDT) Antibody Screen Negative 10/08/2024 8:26 AM EDT [facility] Blood 10/08/2024 7:41 AM EDT 10/08/2024 7:57 AM EDT Narrative [facility] - 10/08/2024 8:32 AM EDT Testing performed by [facility] Transfusion Service Eileen Schroeder MD, PhD BLOOD BANK TEST ORDER PAL Final Result Performing Organization Address [facility] Co de Phone Number [facility] [address] [place] [facility]. [address] * ABO/Rh (10/08/2024 7:41 AM EDT) ABO Grouping O 10/08/2024 8:14 AM EDT [facility] Rh Type Positive 10/08/2024 8:14 AM EDT [facility] Blood 10/08/2024 7:41 AM EDT 10/08/2024 7:57 AM EDT Eileen Schroeder MD, PhD BLOOD BANK TEST ORDER PAL Final Result Performing Organization Address [facility] Co de Phone Number [facility] [address] [facility]. [address] * (ABNORMAL) Lactate dehydrogenase (10/08/2024 5:36 AM EDT) LD 102(L) 110 - 270 U/L 10/08/2024 8:20 AM EDT [facility] Plasma 10/08/2024 5:36 AM EDT 10/08/2024 7:58 AM EDT Angie Blanchard MD LAB BLOOD ORDERABLES Final Res ult [facility] [address] [place] [facility]. [address] * (ABNORMAL) Protime-INR (10/08/2024 5:36 AM EDT) Protime 26.9(H) 12.1 - 15.1 seconds 10/08/2024 6:11 AM EDT [facility] INR 2.4(H) 0.9 - 1.1 10/08/2024 6:11 AM EDT [facility] Comment: RECOMMENDED THERAPEUTIC RANGES USING INR : Stable oral anticoagulant therapy: 2.0 - 3.0 Mechanical prosthetic heart valve: 2.5 - 3.5 Recurrent acute myocardial infarction: 2.5 - 3.5 Plasma 10/08/2024 5:36 AM EDT 10/08/2024 5:52 AM EDT Eileen Schroeder MD, PhD LAB BLOOD ORDERABLES Final Result Performing Organization Address [facility] Co de Phone Number [facility] [address] [facility]. [address] * (ABNORMAL) Hepatic Function Panel (10/08/2024 5:36 AM EDT) Total Bilirubin 7.7(H) 0.0 - 1.5 mg/dL 10/08/2024 6:25 AM EDT [facility] Bilirubin, Direct 4.28(H) 0.00 - 0.40 mg/dL 10/08/2024 6:25 AM EDT [facility] AST 34 13 - 39 U/L 10/08/2024 6:25 AM EDT [facility] ALT 16 7 - 52 U/L 10/08/2024 6:25 AM EDT [facility] Alkaline Phosphatase 103 36 - 125 U/L 10/08/2024 6:25 AM EDT [facility] Total Protein 4.7(L) 6.4 - 8.9 g/dL 10/08/2024 6:25 AM EDT [facility] Albumin 3.5 3.5 - 5.7 g/dL 10/08/2024 6:25 AM EDT [facility] Bilirubin, Indirect 3.42(H) 0.00 - 1.10 mg/dL 10/08/2024 6:25 AM EDT [facility] Plasma 10/08/2024 5:36 AM EDT 10/08/2024 5:52 AM EDT us Eileen Schroeder MD, PhD LAB BLOOD ORDERABLES Final Result Performing Organization Address City/[facility]/ZIP Co de Phone Number [facility] [address] * Magnesium (10/08/2024 5:36 AM EDT) Magnesium 1.9 1.5 - 2.5 mg/dL 10/08/2024 6:25 AM EDT [facility] Plasma 10/08/2024 5:36 AM EDT 10/08/2024 5:52 AM EDT us Eileen Schroeder MD, PhD LAB BLOOD ORDERABLES Final Result [facility] [address] * (ABNORMAL) Renal Function Panel w/EGFR (10/08/2024 5:36 AM EDT) Sodium 135 133 - 146 mmol/L 10/08/2024 6:25 AM EDT [facility] Potassium 3.2(L) 3.5 - 5.3 mmol/L 10/08/2024 6:25 AM EDT [facility] Chloride 106 98 - 110 mmol/L 10/08/2024 6:25 AM EDT [facility] CO2 17(L) 21 - 33 mmol/L 10/08/2024 6:25 AM EDT [facility] Anion Gap 12 3 - 16 mmol/L 10/08/2024 6:25 AM EDT [facility] BUN 61(H) 7 - 25 mg/dL 10/08/2024 6:25 AM EDT [facility] Creatinine 3.10(H) 0.60 - 1.30 mg/dL 10/08/2024 6:25 AM EDT [facility] Glucose 106(H) 70 - 100 mg/dL 10/08/2024 6:25 AM EDT [facility] Calcium 9.0 8.6 - 10.3 mg/dL 10/08/2024 6:25 AM EDT [facility] Phosphorus 4.0 2.1 - 4.7 mg/dL 10/08/2024 6:25 AM EDT [facility] Albumin 3.5 3.5 - 5.7 g/dL 10/08/2024 6:25 AM EDT [facility] Osmolality, Calculated 298 278 - 305 mOsm/kg 10/08/2024 6:25 AM EDT [facility] EGFR 25 10/08/2024 6:25 AM EDT [facility] Comment:As of 2021, the estimated GFR [...] Final Result [facility] [address] [place] [address], [facility] * (ABNORMAL) CBC (10/08/2024 5:36 AM EDT) WBC 3.2(L) 3.8 - 10.8 10E3/uL 10/08/2024 6:41 AM EDT [facility] RBC 1.86(L) 4.20 - 5.80 10E6/uL 10/08/2024 6:41 AM EDT [facility] Hemoglobin 6.9(L) 13.2 - 17.1 g/dL 10/08/2024 6:41 AM EDT [facility] Hematocrit 18.9(L) 38.5 - 50.0 % 10/08/2024 6:41 AM EDT [facility] MCV 101.6(H) 80.0 - 100.0 fL 10/08/2024 6:41 AM EDT [facility] MCH 36.9(H) 27.0 - 33.0 pg 10/08/2024 6:41 AM EDT [facility] MCHC 36.3(H) 32.0 - 36.0 g/dL 10/08/2024 6:41 AM EDT [facility] RDW 17.0(H) 11.0 - 15.0 % 10/08/2024 6:41 AM EDT [facility] Platelets 34(L) 140 - 400 10E3/uL 10/08/2024 6:41 AM EDT [facility] Comment: Specimen checked for clots. None detected. Slide Reviewed for PLT Clumps. None Seen. Platelet Estimate Decreased 10/08/2024 6:41 AM EDT [facility] MPV 8.4 7.5 - 11.5 fL 10/08/2024 6:41 AM EDT [facility] Whole Blood 10/08/2024 5:36 AM EDT 10/08/2024 5:53 AM EDT Narrative [facility] - 10/08/2024 6:41 AM EDT Peripheral blood smear was scanned per review criteria approved by the laboratory medical record technician. us Eileen Schroeder MD, PhD LAB BLOOD ORDERABLES Final Result Performing Organization Address City/[facility]/ZIP Co de Phone Number [facility] [address] [facility]. [address] * Vancomycin, random (10/08/2024 5:36 AM EDT) Vancomycin Random 16.0 ug/mL 10/08/2024 6:20 AM EDT [facility] Comment:Reference range not established for this test. Plasma 10/08/2024 5:36 AM EDT 10/08/2024 5:52 AM EDT us Jodi FreireD LAB BLOOD ORDERABLES Final Result Performing Organization Address [facility]/ZIP Co de Phone Number [facility] [address] * Urine Drug Confirmation (10/07/2024 10:50 PM EDT) BARBITURATES NOT PRESENT 10/09/2024 1:33 PM EDT [facility] BENZODIAZEPINES PRESENT 1:33 PM EDT [facility] Nordiazepam 3 ng/mL 10/09/2024 1:33 PM EDT [facility] Temazepam 6 ng/mL 10/09/2024 1:33 PM EDT [facility] CANNABINOIDS NOT PRESENT 10/09/2024 1:33 PM EDT [facility] HOUSEKEEPER NANNY STIMULANTS NOT PRESENT 1:33 PM EDT [facility] OPIOID ANALGESICS PRESENT 025 1:33 PM EDT [facility] Oxycodone 300 ng/mL 10/09/2024 1:33 PM EDT [facility] Oxymorphone 32 ng/mL 10/09/2024 1:33 PM EDT [facility] Tramadol >1000 ng/mL 10/09/2024 1:33 PM EDT [facility] OPIOID ANTAGONISTS NOT PRESENT 10/09 1:33 PM EDT [facility] SEDATIVES/MUSCLE RELAXANTS NOT PRESENT 10/09/2024 1:33 PM EDT [facility] TRICYCLIC ANTIDEPRESSANTS NOT PRESENT 10/09/2024 1:33 PM EDT [facility] Urine 10/07/2024 10:5 0 PM EDT 10/08/2024 3:00 AM EDT Gerri Petreson MD URINE ORDERABLES Final Result Performing Organization Address City/State/[facility] Co de Phone Number [facility] [address] * Giardia Cryptosporidium Antigens (10/07/2024 10:50 PM EDT) Cryptosporidium Ag Negative Negative 2024 7:59 AM EDT [facility] Giardia Ag Negative Negative 10/08/2024 7:59 AM EDT [facility] Comment: Detection of Giardia and Cryptosporidium antigen is more sensitive and specific than microscopy. Because antigens are shed continuously, repeat testing is rarely warranted. Feces 10/07/2024 10:5 0 PM EDT 10/08/2024 1:53 AM EDT Comment:F us Bisi Hernandez DO MICROBIOLOGY - GENERAL ORDERABLE S Final Result [facility] [address] [place] [address], [facility] * (ABNORMAL) Urine Drug Screen Reflex to Confirmation (10/07/2024 10:50 PM EDT) Amphetamine, 500 ng/mL Cutoff Negative Negative 10/08/2024 3:00 AM EDT [facility] Barbiturates UR, 300 ng/mL Cutoff Negative Negative 10/08/2024 3:00 AM EDT [facility] Buprenorphine, 5 ng/mL Cutoff Negative Negative 10/08/2024 3:00 AM EDT [facility] Benzodiazepines UR, 300 ng/mL Cutoff Negative Negative 10/08/2024 3:00 AM EDT [facility] Cocaine UR, 300 ng/mL Cutoff Negative Negative 10/08/2024 3:00 AM EDT [facility] Methadone, UR, 300 ng/mL Cutoff Negative Negative 10/08/2024 3:00 AM EDT [facility] Opiates UR, 300 ng/mL Cutoff Negative Negative 10/08/2024 3:00 AM EDT [facility] Oxycodone, 100 ng/mL Cutoff Presumptive Positive(A) Negative 10/08/2024 3:00 AM EDT [facility] Tricyclic Antidepressants, 300 ng/mL Cutoff Negative Negative 10/08/2024 3:00 AM EDT [facility] Comment:This test has been d eveloped and its performance characteristics determined by [facility] which is certified under [...] EDT [facility] Comment:This is a screening method only and may be associated with false positive and/or false negative results. Results are not definitive without additional confirmatory testing by mass spectrometry. Fentanyl, 2 ng/mL Cutoff Negative Negative 10/08/2024 3:00 AM EDT [facility] Comment:This test has been d eveloped and its performance characteristics determined by [facility] which is certified under [...] EDT Narrative [facility] - 10/08/2024 3:00 AM EDT CONFIRMATION TO FOLLOW Gerri Peterson MD URINE ORDERABLES Final Result [facility] [address] * Comprehensive Drug Screen (10/07/2024 10:50 PM EDT) Creatinine, Ur CANCELED mg/dL 10/08/2024 7:09 AM EDT [facility] Comment:The released value 8 7.30 was canceled by YAQUELIN on 10/08/2024 07:09 BARBITURATES CANCELED [facility] Butalbital CANCELED [facility] Phenobarbital CANCELED [facility] Secobarbital CANCELED [facility] BENZODIAZEPINES [facility]CELED [facility] Alprazolam CANCELED [facility] Clonazepam CANCELED [facility] Diazepam CANCELED [facility] Alpha-Hydroxyalprazo mcknight CANCELED [facility] Lorazepam CANCELED [facility] Midazolam CANCELED [facility] Nordiazepam CANCELED [facility] Oxazepam CANCELED [facility] Temazepam CANCELED [facility] CANNABINOIDS CANCELED [facility] THC-COOH CANCELED [facility] HOUSEKEEPER NANNY STIMULANTS CAN[facility]ELED [facility] Cocaine Metabolite(benzoylec gonine) CANCELED [facility] Amphetamine CANCELED [facility] Methamphetamine CANCELED [facility] MDA CANCELED [facility] MDEA CANCELED [facility] Phencyclindine (PCP) CANCELED [facility] OPIOID ANALGESICS CANCELED [facility] Heroin Metabolite(6-RAMONA) CANCELED [facility] Codeine CANCELED [facility] Morphine CANCELED [facility] Hydrocod[facility] Hydromorphone [facility] Oxycodone CANCELED [facility] Oxymorphone [facility]CELED [facility] Meperidine CANCELED [facility] Normeperidine [facility]ED [facility] Methadone CANCELED [facility] Methadone Metabolite (EDDP) CANCELED [facility] Tramadol CANCELED [facility] Fentanyl CANCELED [facility] Norfentanyl CANCELED [facility] Sufentanil CANCELED [facility] OPIOID ANTAGONISTS CANCELED [facility] Buprenorphine CANCELED [facility] Norbuprenorphine CANCELED [facility] Naltrexone CANCELED [facility] Naloxone CANCELED [facility] SEDATIVES/MUSCLE RELAXANTS CANCELED [facility] Carisoprodol CANCELED [facility] Meprobamate CANCELED [facility] TRICYCLIC ANTIDEPRESSANTS CANCELED [facility] Amitriptyline [facility] Clomipramine [facility]CELED [facility] Desipramine [facility]CELED [facility] Doxepin CANCELED [facility] Imipramine CANCELED [facility] Nortriptyline CANCELED [facility] Urine Creatinine CANCELED mg/dL [facility] Nitrite CANCELED [facility] Glutaraldehyde CANCELED [facility] pH CANCELED 10/08/2024 7:09 AM EDT [facility] Comment:The released value 5 .6 was canceled by YAQUELIN on 10/08/2024 07:09 Specific [place] CANCELED 10/09/19 7:09 AM EDT [facility] Comment:The released value 1 .009 was canceled by YAQUELIN on 10/08/2024 07:09 Bleach CANCELED [facility] Pyridinium Chlorochromate CANCELED [facility] Urine 10/07/2024 10:5 0 PM EDT 10/08/2024 2:07 AM EDT Narrative [facility] - 10/08/2024 7:09 AM EDT See accn [id number] Gerri Peterson MD URINE ORDERABLES Edited Result - Final Performing Organization Address [facility]/ZIP Co de Phone Number [facility] [address] [facility]. [address] * Ova and Parasite Comprehensive w/ Giardia/Crypto (10/07/2024 10:50 PM EDT) O & P Method: Concentration and Trichrome Stain [facility] Results No Amoeba, Ova, Or Parasites Seen. -- O and P examination of additional specimens is recommended only for symptomatic patients, immunosuppressed patients or those with an appropriate travel history. [facility] Feces FECES / Unknown 10/07/2024 1 0:50 PM EDT 10/08/2024 1:53 AM EDT Comment:F Bisi Hernandez DO MICROBIOLOGY - GENERAL ORDERABLE S Final Result Performing Organization Address [facility] Co de Phone Number [facility] [address] [facility]. [address] * Enteric Pathogen Panel (10/07/2024 10:50 PM EDT) Pathologist [facility] Campylobacter Group (C. ecoli, C. jejuni, C. trino) Not Detected Not Detected 10/08/2024 4:40 AM EDT [facility] Salmonella species Not Detected Not Detected 10/08/2024 4:40 AM EDT [facility] Shigella species Not Detected Not Detected 10/08/2024 4:40 AM EDT [facility] Vibrio Group (Vibrio cholerae, Vibrio parahaemolyticus) Not Detected Not Detected 10/08/2024 4:40 AM EDT [facility] Yersinia enterocolitica Not Detected Not Detected 10/08/2024 4:40 AM EDT [facility] Shiga toxin 1 Not Detected Not Detected 10/08/2024 4:40 AM EDT [facility] Shiga toxin 2 Not Detected Not Detected 10/08/2024 4:40 AM EDT [facility] Norovirus Not Detected Not Detected 10/08/2024 4:40 AM EDT [facility] Rotavirus Not Detected Not Detected 10/08/2024 4:40 AM EDT [facility] Comment: The Enteric Pathogen Panel is [...] S Final Result Performing Organization Address [facility]/ZIP Co de Phone Number [facility] [address] * Hepatitis C Antibody (10/07/2024 6:38 PM EDT) HCV Ab Nonreactive Nonreactive 10/07/2024 7:56 PM EDT [facility] Comment:Health Department no tified in accordance with reportable infectious disease guidelines. Serum 10/07/2024 6:38 PM EDT 10/07/2024 6:52 PM EDT Narrative [facility] - 10/07/2024 7:56 PM EDT Antibodies to HCV not detected; does not exclude the possibility of exposure to HCV. us Gerri Peterson MD LAB BLOOD ORDERABLES Final Resu lt [facility] [address] [facility]. [address] * Hepatitis B Surface Antibody, Quantitati (10/07/2024 6:38 PM EDT) Hep B S Ab Nonreactive Nonreactive 10/07/2024 8:00 PM EDT [facility] HBSAB NUMBER 7.88 0.00 - 7.99 mIU/mL 10/07/2024 8:00 PM EDT [facility] Serum 10/07/2024 6:38 PM EDT 10/07/2024 6:52 PM EDT [facility] - 10/07/2024 8:00 PM EDT Individual is considered not immune to HBV infection. Gerri Peterson MD LAB BLOOD ORDERABLES Final Resu lt Performing Organization Address [facility]/ZIP Co de Phone Number [facility] [address] * Hepatitis B surface antigen (10/07/2024 6:38 PM EDT) Hep B Surface Ag Nonreactive Nonreactive 10/07/2024 7:51 PM EDT [facility] Comment:Health Department no tified in accordance with reportable infectious disease guidelines. Serum 10/07/2024 6:38 PM EDT 10/07/2024 6:52 PM EDT [facility] - 10/07/2024 7:51 PM EDT Specimen is considered negative for HBsAg. Result [facility] Gerri Peterson MD LAB BLOOD ORDERABLES Final Resu lt Performing Organization Address [facility] Co de Phone Number [facility] [address] [facility]. [address] * Hepatitis A Antibody Total (10/07/2024 6:38 PM EDT) Anti-HAV Total (IgG + IgM) Nonreactive 10/07/2024 7:53 PM EDT [facility] Serum 10/07/2024 6:38 PM EDT 10/07/2024 6:52 PM EDT [facility] - 10/07/2024 7:53 PM EDT HAV antibodies not detected Result [facility] Gerri Peterson MD LAB BLOOD ORDERABLES Final Resu lt [facility] [address] * Hepatitis A IgM (10/07/2024 6:38 PM EDT) Hep A IgM Nonreactive Nonreactive 10/07/2024 7:46 PM EDT [facility] Serum 10/07/2024 6:38 PM EDT 10/07/2024 6:52 PM EDT Narrative [facility]ALTH [facility] - 10/07/2024 7:46 PM EDT IgM anti-HAV not detected. Does not exclude the possibility of exposure to or infection with HAV. Levels of IgM anti-HAV may be below the cut-off in early infection. us Gerri Peterson MD LAB BLOOD ORDERABLES Final Resu lt Performing Organization Address [facility] Co de Phone Number [facility] [address] [facility]. [address] * (ABNORMAL) Lipid Profile (10/07/2024 6:37 PM EDT) Non-HDL Cholesterol, Calculated See Note 0 - 129 mg/dL 10/07/2024 7:42 PM EDT [facility] Comment: Desirable: < 130 mg/dL Above Desirable: 130-159 mg/dL Borderline High: 160-189 mg/dL High: 190-219 mg/dL Very High: > 219 mg/dL Unable to calculate result either because contributing result(s) are outside of reportable range or are not available. Cholesterol, Total <25 0 - 200 mg/dL 10/07/2024 7:42 PM EDT [facility] Triglycerides 30 10 - 149 mg/dL 10/07/2024 7:42 PM EDT [facility] HDL 4(L) 60 - 92 mg/dL 10/07/2024 7:42 PM EDT [facility] Comment: LIPID PROFILE INTERPRETATION CHOLESTEROL,TOTAL(mg/dL) DESIRABLE: [...] Cholesterol See Note mg/dL 7:42 PM EDT [facility] Comment:Unable to calculate result either because contributing result(s) are outside of reportable range or are not available. Plasma 10/07/2024 6:37 PM EDT 10/07/2024 7:06 PM EDT Narrative [facility] - 10/07/2024 7:42 PM EDT LDL cholesterol calculated using the Friedewald equation. us Gerri Peterson MD LAB BLOOD ORDERABLES Final Resu lt [facility] [address] * (ABNORMAL) Alpha 1 Antitrypsin AAT Quant & Mutation (10/07/2024 6:37 PM EDT) A-1 Antitrypsin 99(L) 101 - 187 mg/dL 10/09/2024 4:28 AM EDT [facility] A-1 Antitrypsin Pheno Comment 10/10/2024 4:05 PM EDT [facility] Comment: A1A Phenotype is consistent with a heterozygous phenotype consisting of one M (normal) allele and one allele that cannot be identified at this time. The unknown allele is not consistent with Z (deficient), S (deficient), or F (deficient). MM Phenotype is considered to be normal , producing normal serum levels of [id number] inhibitor and not associated with clinical disease. [...] EDT Narrative [facility] - 10/10/2024 4:08 PM EDT PERFORMED AT: [facility] [address] [id number] SERIALS LIBRARIAN: Bassam Khalil, PhD PHONE: [phone] PERFORMED AT: [facility] [address] [id number] SERIALS LIBRARIAN: Mandy Abdul MD PHONE: [phone] Gerri Peterson MD LAB BLOOD ORDERABLES Final Resu lt Performing Organization Address [facility] Co de Phone Number [facility] [address] * (ABNORMAL) CMV IgG Antibody (10/07/2024 6:37 PM EDT) CMV IgG Positive(A ) Negative 10/07/2024 8:26 PM EDT [facility] CMV IGG NUM 8.40(H) 0.00 - 0.59 U/mL 10/07/2024 8:26 PM EDT [facility] Serum 10/07/2024 6:37 PM EDT 10/07/2024 6:50 PM EDT Gerri Peterson MD LAB BLOOD ORDERABLES Final Resu lt Performing Organization Address City/[facility]/ZIP Co de Phone Number [facility] [address] * HIV-1 and HIV-2 Antibodies w Reflex (10/07/2024 6:37 PM EDT) Pathologist [facility] HIV 1+2 AB/AGN Nonreactive Nonreactive 10/07/2024 7:54 PM EDT [facility] Serum 10/07/2024 6:37 PM EDT 10/07/2024 7:06 PM EDT Narrative [facility] - 10/07/2024 7:54 PM EDT \[id number] Gerri Peterson MD LAB BLOOD ORDERABLES Final Resu lt [facility] [address] [facility]. [address] * TSH (Thyroid Stimulating Hormone) (10/07/2024 6:37 PM EDT) [facility] TSH 0.81 0.45 - 4.12 uIU/mL 10/07/2024 8:17 PM EDT [facility] Serum 10/07/2024 6:37 PM EDT 10/07/2024 6:50 PM EDT Gerri Peterson MD LAB BLOOD ORDERABLES Final Resu lt [facility] [address] [facility]. [address] * Katie-Watkins virus early antigen antibody, IgG (10/07/2024 6:37 PM EDT) [facility] EBV Early Antigen Ab, IgG <9.0 0.0 - 8.9 U/mL 10/09/2024 2:16 PM EDT [facility] Comment: Negative < 9.0 Equivocal 9.0 - 10.9 Positive >10.9 Serum Frozen 10/07/2024 6:37 PM EDT 10/09/2024 3:07 PM EDT Narrative [facility] - 10/09/2024 3:07 PM EDT [facility]FORMED AT: [facility] [address] [place], [place] [id number] SERIALS LIBRARIAN: Bassam Khalil, PhD PHONE: [phone] Gerri Peterson MD LAB BLOOD ORDERABLES Final Resu lt Performing Organization Address [facility] Co de Phone Number [facility] [address] * (ABNORMAL) Varicella zoster antibody, IgG (10/07/2024 6:37 PM EDT) Varicella IgG Positive( A) Negative S/CO 10/07/2024 8:34 PM EDT [facility] Comment:Result indicates the presence of detectable [...] EDT [facility] Serum 10/07/2024 6:37 PM EDT 10/07/2024 6:50 PM EDT Gerri Peterson MD LAB BLOOD ORDERABLES Final Resu lt Performing Organization Address [facility] Co de Phone Number [facility] [address] * Toxoplasma gondii antibody, IgG (10/07/2024 6:37 PM EDT) Toxoplasma Gondii IgG <3.0 0.0 - 7.1 IU/mL 10/09/2024 7:53 AM EDT [facility] Comment: Negative <7.2 Equivocal 7.2 - 8.7 Positive >8.7 Serum 10/07/2024 6:37 PM EDT 10/09/2024 8:07 AM EDT Narrative [facility] - 10/09/2024 8:07 AM EDT PERFORMED AT: [facility] [id number] [place], [place] [id number] SERIALS LIBRARIAN: Bassam Khalil, PhD PHONE: [phone] Result [facility] Gerri Peterson MD LAB BLOOD ORDERABLES Final Resu lt [facility] [address] * Syphilis Screening (Trepia) (10/07/2024 6:37 PM EDT) Treponema Pallidum Negative Negative 10/07/2024 8:27 PM EDT [facility] Comment: No serological evidence of infection with Treponema pallidum (incubating or early primary syphilis cannot be excluded). Serum 10/07/2024 6:37 PM EDT 10/07/2024 6:50 PM EDT Gerri Peterson MD LAB BLOOD ORDERABLES Final Resu lt Performing Organization Address [facility] Co de Phone Number [facility] [address] [facility]. [address] * Strongyloides Ab (10/07/2024 6:37 PM EDT) Pathologist [facility] Strongyloides Ab Negative Negative 10/11/19 11:51 AM EDT [facility] Serum 10/07/2024 6:37 PM EDT 10/10/2024 12:07 PM EDT Narrative [facility] - 10/10/2024 12:07 PM EDT PERFORMED AT: [facility] [id number] SERIALS LIBRARIAN: Mandy Abdul MD PHONE: [phone] Gerri Peterson MD LAB BLOOD ORDERABLES Final Resu lt [facility] [address] [facility]. [address] * Phosphatidylethanol Confirmation, B (10/07/2024 6:37 PM EDT) PETH 16:0/18.1 (POPETH) <10 Cutoff: 10 ng/mL 10/10/2024 10:42 AM EDT [facility] Comment: Phosphatidylethanol (PEth) homologues result interpretation [...] EDT [facility] Comment: PEth 16:0/18:2 (PLPEth) Reference ranges are not well established PEth Interpretation Negative. 10/10 10:42 AM EDT [facility] Comment: ADDITIONAL INFORMATION This report is intended for use in clinical monitoring and management of patients. It is not intended for use in employment-related testing. This test was developed and its performance characteristics determined by [facility] in a manner consistent with CLIA requirements. This test has not been cleared or approved by the U.S. Food and Drug Administration. Test Performed by: [facility] - [place] [id number] Director Of Respiratory Therapy: Kathy Ortiz Ph.D.; CLIA# [id number] Whole Blood 10/07/2024 6:37 PM EDT 10/10/2024 10:42 AM EDT us Gerri Peterson MD LAB BLOOD ORDERABLES Final Resu lt [facility] [address] [place] [address], [facility] * (ABNORMAL) MMR(IgG) Panel (Measles, Mumps, Rubella) (10/07/2024 6:37 PM EDT) Mumps IgG Positive 10/07/2024 8:26 PM EDT [facility] MUMPS IGG NUM 77.80(H) 0.0 - 8.9 U/mL 10/07/2024 8:26 PM EDT [facility] Rubella IgG Scr Positive 10/07/2024 8:28 PM EDT [facility] RUB NUM 3.04(H) 0.00 - 0.89 INDEX 10/07/2024 8:28 PM EDT [facility] Rubeola Ab, IgG Positive 10/07/2024 8:26 PM EDT [facility] RUB IGG NUM 192.00(H) 0.00 - 13.40 U/mL 10/07/2024 8:26 PM EDT [facility] Serum 10/07/2024 6:37 PM EDT 10/07/2024 6:50 PM EDT Narrative [facility] - 10/07/2024 8:28 PM EDT Presence of detectable measles virus IgG antibodies. A positive result generally indicates exposure to measles virus or previous vaccination. Presence of detectable mumps virus IgG antibodies. A positive result generally indicates past exposure to mumps virus or previous vaccination. Sample is considered positive for IgG antibodies to rubella virus. Result [facility] Gerri Peterson MD LAB BLOOD ORDERABLES Final Resu lt [facility] [address] [place] [id number] * IgA (10/07/2024 6:37 PM EDT) IgA 227.0 70.0 - 400.0 mg/dL 10/08/2024 11:07 AM EDT [facility] Comment:Please interpret the se findings in conjunction with clinical findings, protein electrophoresis, and immunotyping/immunofixation results. Serum 10/07/2024 6:37 PM EDT 10/07/2024 6:50 PM EDT Gerri Peterson MD LAB BLOOD ORDERABLES Final Resu lt Performing Organization Address [facility]/ZIP Co de Phone Number [facility] [address] * Ethanol, Serum (10/07/2024 6:37 PM EDT) Ethanol <10 0 - 10 mg/dL 10/07/2024 8:36 PM EDT [facility] Serum 10/07/2024 6:37 PM EDT 10/07/2024 6:50 PM EDT Gerri Peterson MD LAB BLOOD ORDERABLES Final Resu lt Performing Organization Address [facility] Co de Phone Number [facility] [address] [place] [address] * ABO/Rh - Second (10/07/2024 6:37 PM EDT) ABO Grouping O 10/07/2024 7:16 PM EDT [facility] Rh Type Positive 10/07/2024 7:16 PM EDT [facility] Blood 10/07/2024 6:37 PM EDT 10/07/2024 6:56 PM EDT Narrative [facility] - 10/07/2024 7:18 PM EDT This is not a duplicate order. It is required that ABO be drawn twice for LIVER TRANSPLANT Gerri Peterson MD BLOOD BANK TEST ORDERABLES Denisse l Result Performing Organization Address City/[facility] Co de Phone Number [facility] [address] * ABO/Rh- Initial (10/07/2024 6:37 PM EDT) ABO Grouping O 10/07/2024 7:59 PM EDT [facility] Rh Type Positive 10/07/2024 7:59 PM EDT [facility] Blood 10/07/2024 6:37 PM EDT 10/07/2024 7:25 PM EDT Gerri Peterson MD BLOOD BANK TEST ORDERABLES Denisse l Result [facility] [address] [place] [address], [facility] * X-ray Mandible minimum 4-views [...] EXAM: US ABDOMEN COMPLETE EXAM: US DUPLEX [id number] COMPLETE INDICATION: elevated bilirubin COMPARISON: Ultrasound and [...] EXAM: US ABDOMEN COMPLETE EXAM: US DUPLEX [id number] COMPLETE INDICATION: elevated bilirubin COMPARISON: Ultrasound and [...] US ORDERABLES Final Result * US Duplex Uzc-Huk-Haojwew Comp (10/07/2024 3:48 PM EDT) Anatomical Region [...] EXAM: US ABDOMEN COMPLETE EXAM: US DUPLEX [id number] COMPLETE INDICATION: elevated bilirubin COMPARISON: Ultrasound and [...] EXAM: US ABDOMEN COMPLETE EXAM: US DUPLEX [id number] COMPLETE INDICATION: elevated bilirubin COMPARISON: Ultrasound and [...] BLOOD ORDERABLES Final Result Performing Organization Address City/State/[facility] Co de Phone Number [facility] [address] * (ABNORMAL) Hepatic Function Panel (10/07/2024 6:00 AM EDT) Total Bilirubin 9.7(H) 0.0 - 1.5 mg/dL 10/07/2024 7:10 AM EDT [facility] Bilirubin, Direct 5.21(H) 0.00 - 0.40 mg/dL 10/07/2024 7:10 AM EDT [facility] AST 39 13 - 39 U/L 10/07/2024 7:10 AM EDT [facility] ALT 18 7 - 52 U/L 10/07/2024 7:10 AM EDT [facility] Alkaline Phosphatase 98 36 - 125 U/L 10/07/2024 7:10 AM EDT [facility] Total Protein 4.8(L) 6.4 - 8.9 g/dL 10/07/2024 7:10 AM EDT [facility] Albumin 3.6 3.5 - 5.7 g/dL 10/07/2024 7:10 AM EDT [facility] Bilirubin, Indirect 4.49(H) 0.00 - 1.10 mg/dL 10/07/2024 7:10 AM EDT [facility] Plasma 10/07/2024 6:00 AM EDT 10/07/2024 6:39 AM EDT Eileen Schroeder MD, PhD LAB BLOOD ORDERABLES Final Result Performing Organization Address City/[facility]/ZIP Co de Phone Number [facility] [address] * Magnesium (10/07/2024 6:00 AM EDT) Magnesium 1.7 1.5 - 2.5 mg/dL 10/07/2024 7:10 AM EDT [facility] Plasma 10/07/2024 6:00 AM EDT 10/07/2024 6:39 AM EDT Eileen Schroeder MD, PhD LAB BLOOD ORDERABLES Final Result Performing Organization Address [facility] Co de Phone Number [facility] [address] * (ABNORMAL) Renal Function Panel w/EGFR (10/07/2024 6:00 AM EDT) Sodium 132(L) 133 - 146 mmol/L 10/07/2024 7:10 AM EDT [facility] Potassium 3.9 3.5 - 5.3 mmol/L 10/07/2024 7:10 AM EDT [facility] Chloride 103 98 - 110 mmol/L 10/07/2024 7:10 AM EDT [facility] CO2 19(L) 21 - 33 mmol/L 10/07/2024 7:10 AM EDT [facility] Anion Gap 10 3 - 16 mmol/L 10/07/2024 7:10 AM EDT [facility] BUN 64(H) 7 - 25 mg/dL 10/07/2024 7:10 AM EDT [facility] Creatinine 3.38(H) 0.60 - 1.30 mg/dL 10/07/2024 7:10 AM EDT [facility] Glucose 111(H) 70 - 100 mg/dL 10/07/2024 7:10 AM EDT [facility] Calcium 9.1 8.6 - 10.3 mg/dL 10/07/2024 7:10 AM EDT [facility] Phosphorus 4.2 2.1 - 4.7 mg/dL 10/07/2024 7:10 AM EDT [facility] Albumin 3.6 3.5 - 5.7 g/dL 10/07/2024 7:10 AM EDT [facility] Osmolality, Calculated 293 278 - 305 mOsm/kg 10/07/2024 7:10 AM EDT [facility] EGFR 22 10/07/2024 7:10 AM EDT [facility] Comment:As of 2021, the estimated GFR [...] Final Result [facility] [address] [place] [address], [facility] * (ABNORMAL) CBC (10/07/2024 6:00 AM EDT) WBC 3.3(L) 3.8 - 10.8 10E3/uL 10/07/2024 7:55 AM EDT [facility] RBC 2.06(L) 4.20 - 5.80 10E6/uL 10/07/2024 7:55 AM EDT [facility] Hemoglobin 7.4(L) 13.2 - 17.1 g/dL 10/07/2024 7:55 AM EDT [facility] Hematocrit 21.5(L) 38.5 - 50.0 % 10/07/2024 7:55 AM EDT [facility] MCV 104.1(H) 80.0 - 100.0 fL 10/07/2024 7:55 AM EDT [facility] MCH 35.8(H) 27.0 - 33.0 pg 10/07/2024 7:55 AM EDT [facility] MCHC 34.4 32.0 - 36.0 g/dL 10/07/2024 7:55 AM EDT [facility] RDW 17.5(H) 11.0 - 15.0 % 10/07/2024 7:55 AM EDT [facility] Platelets 35(L) 140 - 400 10E3/uL 10/07/2024 7:55 AM EDT [facility] Comment: Specimen checked for clots. None detected. Slide Reviewed for PLT Clumps. None Seen. _Platelet Morphology Normal _Platelets Appear Decreased Platelet Estimate Decreased 10/07/2024 7:55 AM EDT [facility] MPV 8.0 7.5 - 11.5 fL 10/07/2024 7:55 AM EDT [facility] Whole Blood 10/07/2024 6:00 AM EDT 10/07/2024 6:40 AM EDT Narrative [facility] - 10/07/2024 7:55 AM EDT Peripheral blood smear was scanned per review criteria approved by the laboratory medical record technician. us Eileen Schroeder MD, PhD LAB BLOOD ORDERABLES Final Result [facility] [address] [place] [address], [facility] * AFP Tumor Marker (10/07/2024 6:00 AM EDT) AFP-Tumor Marker 2.0 0.0 - 9.0 ng/mL 10/07/2024 7:11 AM EDT [facility] Serum 10/07/2024 6:00 AM EDT 10/07/2024 6:39 AM EDT Narrative [facility] - 10/07/2024 7:11 AM EDT The testing method for AFP is a chemiluminescent immunoassay manufactured by [employer] Concentrations of AFP obtained by different assay methods or kits may vary and cannot be used interchangeably. AFP results cannot be interpreted as absolute evidence of the presence or absence of malignant disease. Shila Rivera MD LAB BLOOD ORDERABLES Final Resul t Performing Organization Address [facility] Co de Phone Number [facility] [address] [facility]. [address] * Vancomycin, random (10/07/2024 6:00 AM EDT) Vancomycin Random 21.1 ug/mL 10/07/2024 7:08 AM EDT [facility] Comment:Reference range not established for this test. Plasma 10/07/2024 6:00 AM EDT 10/07/2024 6:39 AM EDT Kiet Gardiner PharmD LAB BLOOD ORDERABLES Final Re sult Performing Organization Address [facility] de Phone Number [facility] [address] [place] [address] * Osmolality (10/06/2024 2:50 PM EDT) Osmolality, Measured 304 278 - 305 mOsm/kg 10/06/2024 3:49 PM EDT [facility] Serum 10/06/2024 2:50 PM EDT 10/06/2024 2:56 PM EDT Chari Vanegas MD LAB BLOOD ORDERABLES Final Resul t Performing Organization Address [facility] Co de Phone Number [facility] [address] [place] [address] * CT Head WO contrast (10/06/2024 1:56 [...] EDT [facility] Comment:Reference range not established for this test. Urine 10/06/2024 1:25 PM EDT 10/06/2024 1:32 PM EDT us Chari Vanegas MD URINE ORDERABLES Final Result Performing Organization Address [facility] Co de Phone Number [facility] [address] [facility]. [address] * Potassium, urine, random (10/06/2024 1:25 PM EDT) Potassium Urine Random 50.0 mmol/L 10/06/2024 1:56 PM EDT [facility] Comment:Reference range not established for this test. Urine 10/06/2024 1:25 PM EDT 10/06/2024 1:32 PM EDT us Chari Vanegas MD URINE ORDERABLES Final Result Performing Organization Address [facility] Co de Phone Number [facility] [address] [facility]. [address] * Sodium, urine, random (10/06/2024 1:25 PM EDT) Sodium, Ur <10 mmol/L 10/06/2024 1:56 PM EDT [facility] Comment:Reference range not established for this test. Urine 10/06/2024 1:25 PM EDT 10/06/2024 1:32 PM EDT us Chari Vanegas MD URINE ORDERABLES Final Result Performing Organization Address [facility] Co de Phone Number [facility] [address] [facility]. [address] * Creatinine, Urine, Random (10/06/2024 1:25 PM EDT) Creatinine, Urine 87.40 mg/dL 10/06/2024 1:56 PM EDT [facility] Comment:Reference range not established for this test. Urine 10/06/2024 1:25 PM EDT 10/06/2024 1:32 PM EDT us Chari Vanegas MD URINE ORDERABLES Final Result Performing Organization Address City/[facility]/ZIP Co de Phone Number [facility] [address] [facility]. [address] * Osmolality, Urine (10/06/2024 1:25 PM EDT) Osmolality, Ur 386 50 - 1,200 mOsm/kg 10/06/2024 1:55 PM EDT [facility] Urine 10/06/2024 1:25 PM EDT 10/06/2024 1:32 PM EDT us Chari Vanegas MD URINE ORDERABLES Final Result Performing Organization Address [facility] de Phone Number [facility] [address] [facility]. [address] * Urine Drug Confirmation (10/06/2024 11:51 [...] PRESENT 10/09/2024 3:23 PM EDT [facility] HOUSEKEEPER NANNY STIMULANTS NOT PRESENT 3:23 PM EDT [facility] OPIOID ANALGESICS PRESENT 025 3:23 PM EDT [facility] Oxycodone 329 ng/mL 10/09/2024 3:23 PM EDT [facility] Oxymorphone 61 ng/mL 10/09/2024 3:23 PM EDT [facility] Tramadol >1000 ng/mL 10/09/2024 3:23 PM EDT [facility] OPIOID ANTAGONISTS NOT PRESENT 10/09 3:23 PM EDT [facility] SEDATIVES/MUSCLE RELAXANTS NOT PRESENT 10/09/2024 3:23 PM EDT [facility] TRICYCLIC ANTIDEPRESSANTS NOT PRESENT 10/09/2024 3:23 PM EDT [facility] Urine 10/06/2024 11:5 1 AM EDT 10/06/2024 1:13 PM EDT Bisi Hernandez DO URINE ORDERABLES Final Result [facility] [address] [place] [address], [facility] * (ABNORMAL) Urine Drug Screen Reflex to Confirmation (10/06/2024 11:51 AM EDT) Amphetamine, 500 ng/mL Cutoff Negative Negative 10/06/2024 1:13 PM EDT [facility] Barbiturates UR, 300 ng/mL Cutoff Negative Negative 10/06/2024 1:13 PM EDT [facility] Buprenorphine, 5 ng/mL Cutoff Negative Negative 10/06/2024 1:13 PM EDT [facility] Benzodiazepines UR, 300 ng/mL Cutoff Negative Negative 10/06/2024 1:13 PM EDT [facility] Cocaine UR, 300 ng/mL Cutoff Negative Negative 10/06/2024 1:13 PM EDT [facility] Methadone, UR, 300 ng/mL Cutoff Negative Negative 10/06/2024 1:13 PM EDT [facility] Opiates UR, 300 ng/mL Cutoff Negative Negative 10/06/2024 1:13 PM EDT [facility] Oxycodone, 100 ng/mL Cutoff Presumptive Positive(A) Negative 10/06/2024 1:13 PM EDT [facility] Tricyclic Antidepressants, 300 ng/mL Cutoff Negative Negative 10/06/2024 1:13 PM EDT [facility] Comment:This test has been d eveloped and its performance characteristics determined by [facility] which is certified under [...] EDT [facility] Comment:This is a screening method only and may be associated with false positive and/or false negative results. Results are not definitive without additional confirmatory testing by mass spectrometry. Fentanyl, 2 ng/mL Cutoff Negative Negative 10/06/2024 1:13 PM EDT [facility] Comment:This test has been d eveloped and its performance characteristics determined by [facility] which is certified under [...] EDT Narrative [facility] - 10/06/2024 1:13 PM EDT CONFIRMATION TO FOLLOW [facility] DO URINE ORDERABLES Final Result Performing Organization Address City/[facility]/ZIP Co de Phone Number [facility] [address] [place] [address] * Chloride, urine, random (10/06/2024 11:51 AM EDT) Chloride, Ur <15 mmol/L 10/06/2024 1:13 PM EDT [facility] Comment:Reference range not established for this test. Urine 10/06/2024 11:5 1 AM EDT 10/06/2024 11:57 AM EDT FTBproella DO URINE ORDERABLES Final Result Performing Organization Address City/[facility]/ZIP Co de Phone Number [facility] [address] [place] [address] * Potassium, urine, random (10/06/2024 11:51 AM EDT) Potassium Urine Random 49.0 mmol/L 10/06/2024 1:13 PM EDT [facility] Comment:Reference range not established for this test. Urine 10/06/2024 11:5 1 AM EDT 10/06/2024 11:57 AM EDT Bisi Akella DO URINE ORDERABLES Final Result Performing Organization Address [facility]/ZIP Co de Phone Number [facility] [address] * Sodium, urine, random (10/06/2024 11:51 AM EDT) Sodium, Ur <10 mmol/L 10/06/2024 1:13 PM EDT [facility] Comment:Reference range not established for this test. Urine 10/06/2024 11:5 1 AM EDT 10/06/2024 11:57 AM EDT [facility] Akella DO URINE ORDERABLES Final Result Performing Organization Address [facility] de Phone Number [facility] [address] * Urinalysis w/Rfl to Microscopic (10/06/2024 11:51 AM EDT) Color, UA Yellow Yellow,Straw 10/06/2024 12:25 PM EDT [facility] Clarity, UA Clear Clear 10/06/2024 12:25 PM EDT [facility] Specific [place], UA 1.014 1.005 - 1.035 10/06/2024 12:25 PM EDT [facility] pH, UA 6.0 5.0 - 8.0 10/06/2024 12:25 PM EDT [facility] Protein, UA Negative Negative mg/dL 10/06/2024 12:25 PM EDT [facility] Glucose, UA Negative Negative mg/dL 10/06/2024 12:25 PM EDT [facility] Ketones, UA Negative Negative mg/dL 10/06/2024 12:25 PM EDT [facility] Bilirubin, UA Negative Negative 10/06/2024 12:25 PM EDT [facility] Blood, UA Negative Negative 10/06/2024 12:25 PM EDT [facility] Nitrite, UA Negative Negative 10/06/2024 12:25 PM EDT [facility] Urobilinogen, UA <2.0 0.2 - 1.9 mg/dL 10/06/2024 12:25 PM EDT [facility] Leukocyte Esterase, UA Negative Negative 10/06/2024 12:25 PM EDT [facility] Urine 10/06/2024 11:5 1 AM EDT 10/06/2024 11:57 AM EDT Narrative [facility] - 10/06/2024 12:25 PM EDT Microscopic testing is not performed when the dipstick is negative for blood, leukocyte, protein and nitrite. us Bisi Hernandez DO URINE ORDERABLES Final Result Performing Organization Address [facility]/ZIP Co de Phone Number [facility] [address] * Lactic Acid, STAT (10/06/2024 7:38 AM EDT) Lactate 0.9 0.5 - 2.2 mmol/L 10/06/2024 8:05 AM EDT [facility] Plasma 10/06/2024 7:38 AM EDT 10/06/2024 7:42 AM EDT Chari Vanegas MD LAB BLOOD ORDERABLES Final Resul t [facility] [address] * (ABNORMAL) CBC, STAT (10/06/2024 7:37 AM EDT) WBC 5.6 3.8 - 10.8 10E3/uL 10/06/2024 8:22 AM EDT [facility] RBC 2.50(L) 4.20 - 5.80 10E6/uL 10/06/2024 8:22 AM EDT [facility] Hemoglobin 9.0(L) 13.2 - 17.1 g/dL 10/06/2024 8:22 AM EDT [facility] LAB Hematocrit 25.3(L) 38.5 - 50.0 % 10/06/2024 8:22 AM EDT [facility] MCV 101.2(H) 80.0 - 100.0 fL 10/06/2024 8:22 AM EDT [facility] MCH 36.0(H) 27.0 - 33.0 pg 10/06/2024 8:22 AM EDT [facility] MCHC 35.6 32.0 - 36.0 g/dL 10/06/2024 8:22 AM EDT [facility] RDW 17.7(H) 11.0 - 15.0 % 10/06/2024 8:22 AM EDT [facility] Platelets 52(L) 140 - 400 10E3/uL 10/06/2024 8:22 AM EDT [facility] Comment: Specimen checked for clots. None detected. Slide Reviewed for PLT Clumps. None Seen. MPV 8.2 7.5 - 11.5 fL 10/06/2024 8:22 AM EDT [facility] Whole Blood 10/06/2024 7:37 AM EDT 10/06/2024 7:43 AM EDT us Chari Vanegas MD LAB BLOOD ORDERABLES Final Resul t [facility] [address] * (ABNORMAL) Comprehensive Metabolic Panel (10/06/2024 7:37 AM EDT) Sodium 129(L) 133 - 146 mmol/L 10/06/2024 8:16 AM EDT [facility] Potassium 4.4 3.5 - 5.3 mmol/L 10/06/2024 8:16 AM EDT [facility] Chloride 100 98 - 110 mmol/L 10/06/2024 8:16 AM EDT [facility] CO2 18(L) 21 - 33 mmol/L 10/06/2024 8:16 AM EDT [facility] Anion Gap 11 3 - 16 mmol/L 10/06/2024 8:16 AM EDT [facility] BUN 62(H) 7 - 25 mg/dL 10/06/2024 8:16 AM EDT [facility] Creatinine 3.40(H) 0.60 - 1.30 mg/dL 10/06/2024 8:16 AM EDT [facility] Glucose 98 70 - 100 mg/dL 10/06/2024 8:16 AM EDT [facility] Calcium 9.5 8.6 - 10.3 mg/dL 10/06/2024 8:16 AM EDT [facility] Total Bilirubin 14.3(H) 0.0 - 1.5 mg/dL 10/06/2024 8:16 AM EDT [facility] AST 57(H) 13 - 39 U/L 10/06/2024 8:16 AM EDT [facility] ALT 29 7 - 52 U/L 10/06/2024 8:16 AM EDT [facility] Alkaline Phosphatase 158(H) 36 - 125 U/L 10/06/2024 8:16 AM EDT [facility] Total Protein 5.6(L) 6.4 - 8.9 g/dL 10/06/2024 8:16 AM EDT [facility] Albumin 3.6 3.5 - 5.7 g/dL 10/06/2024 8:16 AM EDT [facility] Osmolality, Calculated 286 278 - 305 mOsm/kg 10/06/2024 8:16 AM EDT [facility] EGFR 22 10/06/2024 8:16 AM EDT [facility] Comment:As of 2021, the estimated GFR [...] Resul t [facility] [address] [place] [address], [facility] * (ABNORMAL) Venous Blood Gas, Line/Syringe, STAT (10/06/2024 7:37 AM EDT) PH-Line Draw 7.27(L) 7.32 - 7.42 10/06/2024 7:46 AM EDT [facility] PCO2-Line Draw 36(L) 41 - 51 mm Hg 10/06/2024 7:46 AM EDT [facility] PO2-Line Draw 44(H) 25 - 40 mm Hg 10/06/2024 7:46 AM EDT [facility] HCO3-Line Draw 17(L) 24 - 28 mmol/L 10/06/2024 7:46 AM EDT [facility] CO2 Content-Line Draw 18(L) 25 - 29 mmol/L 10/06/2024 7:46 AM EDT [facility] Base Excess-Line Draw -9.6(L) -2.0 - 3.0 mmol/L 10/06/2024 7:46 AM EDT [facility] %HBO2-Line Draw 69.8 40.0 - 70.0 % 10/06/2024 7:46 AM EDT [facility] Carboxyhgb-Ludivina e Draw 0.7 % 10/06/2024 7:46 AM EDT [facility] Comment: CARBOXYHEMOGLOBIN (CO) REFERENCE RANGES: Non-Smokers: <2 % Smokers: <8 % TOXIC: >20 % Methemoglobin- Line Draw 0.3 0.0 - 1.5 % 10/06/2024 7:46 AM EDT [facility] Reduced Hemoglobin-Ludivina e Draw 29.2(H) 0.0 - 5.0 % 10/06/2024 7:46 AM EDT [facility] Venous, Line Draw 10/06/2024 7:37 AM EDT 10/06/2024 7:43 AM EDT Chari Vanegas MD LAB BLOOD ORDERABLES Final Resul t [facility] [address] [place] [address], [facility] * (ABNORMAL) Venous Blood Gas, Line/Syringe, STAT (10/06/2024 4:03 AM EDT) PH-Line Draw 7.21(L) 7.32 - 7.42 10/06/2024 4:16 AM EDT [facility] PCO2-Line Draw 41 41 - 51 mm Hg 10/06/2024 4:16 AM EDT [facility] PO2-Line Draw 32 25 - 40 mm Hg 10/06/2024 4:16 AM EDT [facility] HCO3-Line Draw 16(L) 24 - 28 mmol/L 10/06/2024 4:16 AM EDT [facility] CO2 Content-Line Draw 18(L) 25 - 29 mmol/L 10/06/2024 4:16 AM EDT [facility] Base Excess-Line Draw -10.8(L) -2.0 - 3.0 mmol/L 10/06/2024 4:16 AM EDT [facility] %HBO2-Line Draw 47.5 40.0 - 70.0 % 10/06/2024 4:16 AM EDT [facility] Carboxyhgb-Ludivina e Draw 2.0 % 10/06/2024 4:16 AM EDT [facility] Comment: CARBOXYHEMOGLOBIN (CO) REFERENCE RANGES: Non-Smokers: <2 % Smokers: <8 % TOXIC: >20 % Methemoglobin- Line Draw 0.7 0.0 - 1.5 % 10/06/2024 4:16 AM EDT [facility] Reduced Hemoglobin-Ludivina e Draw 49.8(H) 0.0 - 5.0 % 10/06/2024 4:16 AM EDT [facility] Venous, Line Draw 10/06/2024 4:03 AM EDT 10/06/2024 4:12 AM EDT [employer] DO LAB BLOOD ORDERABLES Final Resul t Performing Organization Address [facility] Co de Phone Number [facility] [address] * (ABNORMAL) Protime-INR (10/06/2024 4:01 AM EDT) Protime 21.3(H) 12.1 - 15.1 seconds 10/06/2024 4:40 AM EDT [facility] INR 1.8(H) 0.9 - 1.1 10/06/2024 4:40 AM EDT [facility] Comment: RECOMMENDED THERAPEUTIC RANGES USING INR : Stable oral anticoagulant therapy: 2.0 - 3.0 Mechanical prosthetic heart valve: 2.5 - 3.5 Recurrent acute myocardial infarction: 2.5 - 3.5 Plasma 10/06/2024 4:01 AM EDT 10/06/2024 4:11 AM EDT [employer] LAB BLOOD ORDERABLES Final Resul t Performing Organization Address [facility] Co de Phone Number [facility] [address] * (ABNORMAL) Hepatic Function Panel, AM (10/06/2024 4:01 AM EDT) Total Bilirubin 14.7(H) 0.0 - 1.5 mg/dL 10/06/2024 4:57 AM EDT [facility] Bilirubin, Direct 7.08(H) 0.00 - 0.40 mg/dL 10/06/2024 4:57 AM EDT [facility] AST 60(H) 13 - 39 U/L 10/06/2024 4:57 AM EDT [facility] ALT 31 7 - 52 U/L 10/06/2024 4:57 AM EDT [facility] Alkaline Phosphatase 162(H) 36 - 125 U/L 10/06/2024 4:57 AM EDT [facility] Total Protein 5.3(L) 6.4 - 8.9 g/dL 10/06/2024 4:57 AM EDT [facility] Albumin 3.4(L) 3.5 - 5.7 g/dL 10/06/2024 4:57 AM EDT [facility] Bilirubin, Indirect 7.62(H) 0.00 - 1.10 mg/dL 10/06/2024 4:57 AM EDT [facility] Plasma 10/06/2024 4:01 AM EDT 10/06/2024 4:22 AM EDT [employer] DO LAB BLOOD ORDERABLES Final Resul t Performing Organization Address [facility] Co de Phone Number [facility] [address] [facility]. [address] * Magnesium (10/06/2024 4:01 AM EDT) Magnesium 1.8 1.5 - 2.5 mg/dL 10/06/2024 4:57 AM EDT [facility] Plasma 10/06/2024 4:0 1 AM EDT 10/06/2024 4:22 AM EDT [employer] LAB BLOOD ORDERABLES Final Resul t Performing Organization Address [facility] de Phone Number [facility] [address] * (ABNORMAL) Renal Function Panel w/EGFR (10/06/2024 4:01 AM EDT) Sodium 129(L) 133 - 146 mmol/L 10/06/2024 4:57 AM EDT [facility] Potassium 4.7 3.5 - 5.3 mmol/L 10/06/2024 4:57 AM EDT [facility] Chloride 100 98 - 110 mmol/L 10/06/2024 4:57 AM EDT [facility] CO2 16(L) 21 - 33 mmol/L 10/06/2024 4:57 AM EDT [facility] Anion Gap 13 3 - 16 mmol/L 10/06/2024 4:57 AM EDT [facility] BUN 61(H) 7 - 25 mg/dL 10/06/2024 4:57 AM EDT [facility] Creatinine 3.49(H) 0.60 - 1.30 mg/dL 10/06/2024 4:57 AM EDT [facility] Glucose 104(H) 70 - 100 mg/dL 10/06/2024 4:57 AM EDT [facility] Calcium 9.2 8.6 - 10.3 mg/dL 10/06/2024 4:57 AM EDT [facility] Phosphorus 5.3(H) 2.1 - 4.7 mg/dL 10/06/2024 4:57 AM EDT [facility] Albumin 3.4(L) 3.5 - 5.7 g/dL 10/06/2024 4:57 AM EDT [facility] Osmolality, Calculated 286 278 - 305 mOsm/kg 10/06/2024 4:57 AM EDT [facility] EGFR 22 10/06/2024 4:57 AM EDT [facility] Comment:As of 2021, the estimated GFR [...] Resul t [facility] [address] [facility] [place] [address], [facility] * (ABNORMAL) CBC (10/06/2024 4:01 AM EDT) WBC 7.6 3.8 - 10.8 10E3/uL 10/06/2024 5:16 AM EDT [facility] RBC 2.77(L) 4.20 - 5.80 10E6/uL 10/06/2024 5:16 AM EDT [facility] Hemoglobin 10.1(L) 13.2 - 17.1 g/dL 10/06/2024 5:16 AM EDT [facility] Hematocrit 28.4(L) 38.5 - 50.0 % 10/06/2024 5:16 AM EDT [facility] MCV 102.4(H) 80.0 - 100.0 fL 10/06/2024 5:16 AM EDT [facility] MCH 36.4(H) 27.0 - 33.0 pg 10/06/2024 5:16 AM EDT [facility] MCHC 35.5 32.0 - 36.0 g/dL 10/06/2024 5:16 AM EDT [facility] RDW 18.0(H) 11.0 - 15.0 % 10/06/2024 5:16 AM EDT [facility] Platelets 53(L) 140 - 400 10E3/uL 10/06/2024 5:16 AM EDT [facility] Comment:Specimen checked for clots. None detected. MPV 8.4 7.5 - 11.5 fL 10/06/2024 5:16 AM EDT [facility] Whole Blood 10/06/2024 4:01 AM EDT 10/06/2024 4:11 AM EDT us Bisi Hernandez DO LAB BLOOD ORDERABLES Final Resul t [facility] [address] * Hepatitis C Antibody (10/06/2024 4:01 AM EDT) Pathologist [facility] HCV Ab Nonreactive Nonreactive 10/06/2024 5:12 AM EDT [facility] Comment:Health Department no tified in accordance with reportable infectious disease guidelines. Serum 10/06/2024 4:01 AM EDT 10/06/2024 4:11 AM EDT [facility] - 10/06/2024 5:12 AM EDT Antibodies to HCV not detected; does not exclude the possibility of exposure to HCV. [employer] LAB BLOOD ORDERABLES Final Resul t Performing Organization Address City/[facility] Co de Phone Number [facility] [address] * (ABNORMAL) Hepatitis B Surface Antibody, Quantitati (10/06/2024 4:01 AM EDT) Hep B S Ab Reactive( A) Nonreactive 10/06/2024 5:16 AM EDT [facility] HBSAB NUMBER 11.50(H) 0.00 - 7.99 mIU/mL 10/06/2024 5:16 AM EDT [facility] Serum 10/06/2024 4:01 AM EDT 10/06/2024 4:11 AM EDT [facility] - 10/06/2024 5:16 AM EDT Individual is considered immune to HBV infection. [employer] LAB BLOOD ORDERABLES Final Resul t Performing Organization Address [facility] Co de Phone Number [facility] [address] * Hepatitis B surface antigen (10/06/2024 4:01 AM EDT) Hep B Surface Ag Nonreactive Nonreactive 10/06/2024 5:07 AM EDT [facility] Comment:Health Department no tified in accordance with reportable infectious disease guidelines. Serum 10/06/2024 4:01 AM EDT 10/06/2024 4:11 AM EDT [facility] - 10/06/2024 5:07 AM EDT Specimen is considered negative for HBsAg. [employer] LAB BLOOD ORDERABLES Final Resul t [facility] [address] * Hepatitis A Antibody Total (10/06/2024 4:01 AM EDT) Anti-HAV Total (IgG + IgM) Nonreactive 10/06/2024 5:08 AM EDT [facility] Serum 10/06/2024 4:01 AM EDT 10/06/2024 4:11 AM EDT Narrative [facility] - 10/06/2024 5:08 AM EDT HAV antibodies not detected [employer] LAB BLOOD ORDERABLES Final Resul t Performing Organization Address City/[facility]/ZIP Co de Phone Number [facility] [address] [facility]. [address] * Hepatitis A IgM (10/06/2024 4:01 AM EDT) Hep A IgM Nonreactive Nonreactive 10/06/2024 5:02 AM EDT [facility] Serum 10/06/2024 4:01 AM EDT 10/06/2024 4:11 AM EDT Narrative [facility] - 10/06/2024 5:02 AM EDT IgM anti-HAV not detected. Does not exclude the possibility of exposure to or infection with HAV. Levels of IgM anti-HAV may be below the cut-off in early infection. [employer] LAB BLOOD ORDERABLES Final Resul t [facility] [address] [place] [address] [facility]. [address] * (ABNORMAL) Salicylate Level (10/06/2024 4:01 AM EDT) Salicylate Lvl <3(L) 10 - 30 mg/dL 10/06/2024 4:58 AM EDT [facility] Serum 10/06/2024 4:01 AM EDT 10/06/2024 4:22 AM EDT [employer] DO LAB BLOOD ORDERABLES Final Resul t [facility] [address] [facility] * AFP Tumor Marker (10/06/2024 4:01 AM EDT) [facility] AFP-Tumor Marker 2.6 0.0 - 9.0 ng/mL 10/06/2024 4:55 AM EDT [facility] Serum 10/06/2024 4:01 AM EDT 10/06/2024 4:22 AM EDT Narrative [facility] - 10/06/2024 4:55 AM EDT The testing method for AFP is a chemiluminescent immunoassay manufactured by [employer] Concentrations of AFP obtained by different assay methods or kits may vary and cannot be used interchangeably. AFP results cannot be interpreted as absolute evidence of the presence or absence of malignant disease. [employer] DO LAB BLOOD ORDERABLES Final Resul t Performing Organization Address [facility] Co de Phone Number [facility] [address] [facility]. [address] * Upper Respiratory Viral/Bacterial Panel-MILK COLLECTOR Only (10/06/2024 3:12 AM EDT) [facility] Adenovirus Not Detected Not Detected 10/06/2024 11:38 PM EDT [facility] Coronavirus (229E,HKU1,NL63,OC 43) Not Detected Not Detected 10/06/2024 11:38 PM EDT [facility] SARS-CoV-2 Not Detected Not Detected 10/06/2024 11:38 PM EDT [facility] Human Metapneumovirus Not Detected Not Detected 10/06/2024 11:38 PM EDT [facility] Human Rhinovirus/Enterov irus Not Detected Not Detected 10/06/2024 11:38 PM EDT [facility] Influenza A Not Detected Not Detected 10/06/2024 11:38 PM EDT [facility] Influenza A H1 Not Detected Not Detected 10/06/2024 11:38 PM EDT [facility] Influenza A/H1-2009 Not Detected Not Detected 10/06/2024 11:38 PM EDT [facility] Influenza A H3 Not Detected Not Detected 10/06/2024 11:38 PM EDT [facility] Influenza B Not Detected Not Detected 10/06/2024 11:38 PM EDT [facility] Parainfluenza 1 Not Detected Not Detected 10/06/2024 11:38 PM EDT [facility] Parainfluenza 2 Not Detected Not Detected 10/06/2024 11:38 PM EDT [facility] Parainfluenza 3 Not Detected Not Detected 10/06/2024 11:38 PM EDT [facility] Parainfluenza 4 Not Detected Not Detected 10/06/2024 11:38 PM EDT [facility] Resp. Syncycial Virus A Not Detected Not Detected 10/06/2024 11:38 PM EDT [facility] Resp. Syncycial Virus B Not Detected Not Detected 10/06/2024 11:38 PM EDT [facility] Chlamydia pneumoniae Not Detected Not Detected 10/06/2024 11:38 PM EDT [facility] Mycoplasma pneumoniae Not Detected Not Detected 10/06/2024 11:38 PM EDT [facility] Comment: The Respiratory Viral-Bacterial Panel is [...] Test results have been sent to the [facility] in accordance with state requirements. For a fact sheet for healthcare providers, see https://www.fda.gov/media/537461/download. For a fact sheet for patients, see https://www.fda.gov/media/760510/download. Nasopharyngeal Swab NASOPHARYNGEAL SWAB / Unknown 10/06/2024 3:12 AM EDT 10/06/2024 5:41 PM EDT Comment:MILK COLLECTOR us Bisi Hernandez DO BODY FLUIDS AND STOOLS ORDERABLE S Final Result [facility] [address] [facility] [place] [address], [facility] * X-ray Portable Chest (10/06/2024 1:16 AM [...] Cutoff: 10 ng/mL 10/10/2024 3:11 AM EDT [facility] Comment: Phosphatidylethanol (PEth) homologues result interpretation [...] Cutoff: 10 ng/mL 10/10/2024 3:11 AM EDT [facility] Comment: PEth 16:0/18:2 (PLPEth) Reference ranges are not well established PEth Interpretation Negative. 10/10 3:11 AM EDT [facility] Comment: ADDITIONAL INFORMATION This report is intended for use in clinical monitoring and management of patients. It is not intended for use in employment-related testing. This test was developed and its performance characteristics determined by [facility] in a manner consistent with CLIA requirements. This test has not been cleared or approved by the U.S. Food and Drug Administration. Test Performed by: [facility] - [address] [address] Director Of Respiratory Therapy: Kathy Ortiz Ph.D.; CLIA# [id number] Whole Blood 10/06/2024 1:04 AM EDT 10/10/2024 3:11 AM EDT [employer] LAB BLOOD ORDERABLES Final Resul t [facility] [address] * (ABNORMAL) Acetaminophen Level (10/06/2024 1:04 AM EDT) Acetaminophen Level <10(L) 10 - 30 ug/mL 10/06/2024 2:08 AM EDT [facility] Serum 10/06/2024 1:04 AM EDT 10/06/2024 1:30 AM EDT [employer] LAB BLOOD ORDERABLES Final Resul t Performing Organization Address City/[facility]/ZIP Co de Phone Number [facility] [address] [facility]. [address] * Ethanol, Serum (10/06/2024 1:04 AM EDT) Ethanol <10 0 - 10 mg/dL 10/06/2024 2:08 AM EDT [facility] Serum 10/06/2024 1:04 AM EDT 10/06/2024 1:30 AM EDT [employer] LAB BLOOD ORDERABLES Final Resul t Performing Organization Address City/[facility]/ZIP Co de Phone Number [facility] [address] [place] [facility]. [address] * #2 Blood culture-Peripheral site 2 (10/06/2024 1:04 AM EDT) Culture Result No Growth After 5 Days [facility] Blood BLOOD SPECIMEN / Unknown 10/06/2024 1:04 AM EDT 10/06/2024 4:57 AM EDT Narrative [facility] - 10/11/2024 5:05 AM EDT Suboptimal volume of blood received. Interpret results with caution. Bisi Hernandez DO MICROBIOLOGY - GENERAL ORDERABLE S Final Result Performing Organization Address [facility] Co de Phone Number [facility] [address] [place] [address]. [address] * #1 Blood culture-Peripheral site 1 (10/06/2024 1:04 AM EDT) Culture Result No Growth After 5 Days [facility] Blood BLOOD SPECIMEN / Unknown 10/06/2024 1:04 AM EDT 10/06/2024 4:57 AM EDT Narrative [facility] - 10/11/2024 5:01 AM EDT Suboptimal volume of blood received. Interpret results with caution. Bisi Hernandez DO MICROBIOLOGY - GENERAL ORDERABLE S Final Result Performing Organization Address [facility] Co de Phone Number [facility] [address] [place] [address]. [address] * Ammonia (10/06/2024 1:04 AM EDT) Ammonia 77 27 - 90 ug/dL 10/06/2024 2:00 AM EDT [facility] Plasma 10/06/2024 1:04 AM EDT 10/06/2024 1:30 AM EDT [facility]isi [facility] LAB BLOOD ORDERABLES Final Resul t Performing Organization Address [facility] Co de Phone Number [facility] [address] [facility]. [address] * Thyroid Function Coryell (10/06/2024 1:04 AM EDT) TSH 0.84 0.45 - 4.12 uIU/mL 10/06/2024 2:20 AM EDT [facility] Serum 10/06/2024 1:04 AM EDT 10/06/2024 1:39 AM EDT us BisiBucky Box DO LAB BLOOD ORDERABLES Final Resul t Performing Organization Address City/[facility]/ZIP Co de Phone Number [facility] [address] * (ABNORMAL) Protime-INR (10/06/2024 1:04 AM EDT) Protime 22.8(H) 12.1 - 15.1 seconds 10/06/2024 1:48 AM EDT [facility] INR 1.9(H) 0.9 - 1.1 10/06/2024 1:48 AM EDT [facility] Comment: RECOMMENDED THERAPEUTIC RANGES USING INR : Stable oral anticoagulant therapy: 2.0 - 3.0 Mechanical prosthetic heart valve: 2.5 - 3.5 Recurrent acute myocardial infarction: 2.5 - 3.5 Plasma 10/06/2024 1:04 AM EDT 10/06/2024 1:30 AM EDT us [employer] DO LAB BLOOD ORDERABLES Final Resul t Performing Organization Address [facility] Co de Phone Number [facility] [address] * Lactic Acid, STAT (10/06/2024 1:04 AM EDT) Lactate 1.2 0.5 - 2.2 mmol/L 10/06/2024 1:59 AM EDT [facility] Plasma 10/06/2024 1:04 AM EDT 10/06/2024 1:30 AM EDT us [employer] DO LAB BLOOD ORDERABLES Final Resul t Performing Organization Address City/[facility] Co de Phone Number [facility] [address] [facility] * (ABNORMAL) CBC, STAT (10/06/2024 1:04 AM EDT) WBC 7.9 3.8 - 10.8 10E3/uL 10/06/2024 2:36 AM EDT [facility] RBC 2.76(L) 4.20 - 5.80 10E6/uL 10/06/2024 2:36 AM EDT [facility] Hemoglobin 9.9(L) 13.2 - 17.1 g/dL 10/06/2024 2:36 AM EDT [facility] Hematocrit 28.0(L) 38.5 - 50.0 % 10/06/2024 2:36 AM EDT [facility] MCV 101.5(H) 80.0 - 100.0 fL 10/06/2024 2:36 AM EDT [facility] MCH 35.7(H) 27.0 - 33.0 pg 10/06/2024 2:36 AM EDT [facility] MCHC 35.2 32.0 - 36.0 g/dL 10/06/2024 2:36 AM EDT [facility] RDW 17.9(H) 11.0 - 15.0 % 10/06/2024 2:36 AM EDT [facility] Platelets 58(L) 140 - 400 10E3/uL 10/06/2024 2:36 AM EDT [facility] Comment: Specimen checked for clots. None detected. Slide Reviewed for PLT Clumps. None Seen. MPV 8.2 7.5 - 11.5 fL 10/06/2024 2:36 AM EDT [facility] Whole Blood 10/06/2024 1:04 AM EDT 10/06/2024 1:31 AM EDT us Bisi Hernandez DO LAB BLOOD ORDERABLES Final Resul t [facility] [address] [facility] [place] [address], [facility] * (ABNORMAL) Comprehensive Metabolic Panel (10/06/2024 1:04 AM EDT) Sodium 127(L) 133 - 146 mmol/L 10/06/2024 2:05 AM EDT [facility] Potassium 4.5 3.5 - 5.3 mmol/L 10/06/2024 2:05 AM EDT [facility] Chloride 99 98 - 110 mmol/L 10/06/2024 2:05 AM EDT [facility] CO2 18(L) 21 - 33 mmol/L 10/06/2024 2:05 AM [facility] Anion Gap 10 3 - 16 mmol/L 10/06/2024 2:05 AM T [facility] BUN 59(H) 7 - 25 mg/dL 10/06/2024 2:05 AM T [facility] Creatinine 3.54(H) 0.60 - 1.30 mg/dL 10/06/2024 2:05 AM EDT [facility] Glucose 116(H) 70 - 100 mg/dL 10/06/2024 2:05 AM T [facility] Calcium 9.0 8.6 - 10.3 mg/dL 10/06/2024 2:05 AM [facility] Total Bilirubin 14.8(H) 0.0 - 1.5 mg/dL 10/06/2024 2:05 AM [facility] AST 61(H) 13 - 39 U/L 10/06/2024 2:05 AM [facility] ALT 33 7 - 52 U/L 10/06/2024 2:05 AM [facility] Alkaline Phosphatase 174(H) 36 - 125 U/L 10/06/2024 2:05 AM [facility] Total Protein 5.2(L) 6.4 - 8.9 g/dL 10/06/2024 2:05 AM [facility] Albumin 3.3(L) 3.5 - 5.7 g/dL 10/06/2024 2:05 AM [facility] Osmolality, Calculated 282 278 - 305 mOsm/kg 10/06/2024 2:05 AM [facility] EGFR 21 10/06/2024 2:05 AM [facility] Comment:As of 2021, the estimated [...] Resul t [facility] [address] [id number], [facility] documented in this encounter Visit Diagnoses Not [...] 10 mg nitroGLYCERIN in D5W injection - ARTIST MODEL ONLY Intra-op PRN, Starting on Sun10/14/24 at [...] [place], ЮЛИЯ) 0850 (Given - Provider: Sueztte Arciniega, ЮЛИЯ) sertraline (ZOLOFT) tablet 50 mg [...] documented as of this encounter Care Teams Corn Shucker Relationship Specialty Start Date End Date Enedina Mcguire NP [address] [place] [address] PCP - General Internal Medicine 10/05/24 documented as of this encounter
--- OUTSIDE RECORDS SUMMARY | 2024-10-20 09:10 | XMS_ITS | Encounter Summary ---
Author Organization [facility] Address [facility] [place] [address] Care Team Providers Care Dairy Farmworker Name Role Phone Enedina Mcguire NP Primary Care Provider [phone] Source Comments This information has been disclosed [...] release of HIV test results or diagnoses. [id number] Encounter Details Date Type Department Care Team (Latest Contact Info) Description 10/20/2024 9:10 AM EDT - 10/20/2024 11:59 PM EDT Hospital Encounter [facility] Radiology [address] [place] [phone] System, Provider Not In Discharge Disposition: Home [...] Recorded In the past 12 months has [employer], gas, oil, or water [employer] threatened to shut off services in your [...] AM EDT 10/17/2024 naloxone (NARCAN) 4 mg/actuation [place] Apply 1 spray in one nostril if [...] 3 times a day. 90 tablet 10/20/2024 5 thiamine HCl (VITAMIN B-1) 100 MG [...] Encounter [facility] ENDOSCOPY [address] [place] [phone] Chris Orosco MD [address] [place] [phone] 12/05/2024 8:01 AM EDT - 12/05/2024 8:31 AM EDT Surgery [facility] ENDOSCOPY [address] [place] [phone] Chris Orosco MD [address] [place] [phone] EGD Scheduled Procedures Name Priority Associated Diagnoses [...] documented as of this encounter Care Teams Dairy Farmworker Relationship Specialty Start Date End Date Enedina Mcguire NP [address] [place] [address] PCP - General Internal Medicine 10/05/24 documented as of this encounter
--- OUTSIDE RECORDS SUMMARY | 2024-10-20 09:10 | XMS_ITS | Encounter Summary ---
Author Organization [facility] Address [facility] [place] [address] Care Team Providers Care Clinical Program Coordinator Name Role Phone Enedina Mcguire NP Primary Care Provider [phone] Source Comments This information has been disclosed [...] release of HIV test results or diagnoses. [id number] Encounter Details Date Type Department Care Team (Latest Contact Info) Description 10/20/2024 9:10 AM EDT - 10/20/2024 11:59 PM EDT Hospital Encounter [facility] Radiology [address] [place] [phone] System, Provider Not In Discharge Disposition: Home [...] Recorded In the past 12 months has [employer], gas, oil, or water [employer] threatened to shut off services in your [...] time in the past 12 m [facility], were you homeless or living in [...] AM EDT 10/17/2024 naloxone (NARCAN) 4 mg/actuation [place] Apply 1 spray in one nostril if [...] 12/05/2024 8:01 AM EDT Hospital Encounter [facility] ENDOSCOPY [address] [place] [address] Chris Orosco MD [address] [place] [phone] 12/05/2024 8:01 AM EDT - 12/05/2024 8:31 AM EDT [facility] ENDOSCOPY [address] [place] [address] Chris Orosco MD [address] [place] [phone] EGD Scheduled Procedures Name Priority Associated Diagnoses [...] documented as of this encounter Care Teams Clinical Program Coordinator Relationship Specialty Start Date End Date Enedina Mcguire NP [address] [place] [address] PCP - General Internal Medicine 10/05/24 documented as of this encounter
--- OUTSIDE RECORDS SUMMARY | 2024-10-20 09:10 | XMS_ITS | Encounter Summary ---
Author Organization [facility] Address [facility] [place] [address] Care Team Providers Care Housing Assistant Name Role Phone Enedina Mcguire NP Primary Care Provider [phone] Source Comments This information has been disclosed [...] release of HIV test results or diagnoses. [id number] Encounter Details Date Type Department Care Team (Latest Contact Info) Description 10/20/2024 9:10 AM EDT - 10/20/2024 11:59 PM EDT Hospital Encounter [facility] Radiology [address] [place] [phone] System, Provider Not In Discharge Disposition: Home [...] Recorded In the past 12 months has [employer], gas, oil, or water [employer] threatened to shut off services in [...] AM EDT 10/17/2024 naloxone (NARCAN) 4 mg/actuation [place] Apply 1 spray in one nostril if [...] Description 12/05/2024 8:01 AM EDT Hospital Encounter [facility] ENDOSCOPY [address] [place] [address] Chris Orosco MD [address] [place] [phone] 12/05/2024 8:01 AM EDT - 12/05/2024 8:31 AM EDT Surgery [facility] ENDOSCOPY [address] [place] [address] Chris Orosco MD [address] [place] [phone] EGD Scheduled Procedures Name Priority Associated Diagnoses [...] documented as of this encounter Care Teams Housing Assistant Relationship Specialty Start Date End Date Enedina Mcguire NP [address] [place] [address] PCP - General Internal Medicine 10/05/24 documented as of this encounter
--- OUTSIDE RECORDS SUMMARY | 2024-10-20 09:10 | XMS_ITS | Encounter Summary ---
Author Organization [facility] Address [facility] [place] [address] Care Team Providers Care Cisco Administrator Name Role Phone Enedina Mcguire NP Primary Care Provider [phone] Source Comments This information has been disclosed [...] release of HIV test results or diagnoses. [id number] Encounter Details Date Type Department Care Team (Latest Contact Info) Description 10/20/2024 9:10 AM EDT - 10/20/2024 11:59 PM EDT Hospital Encounter [facility] Radiology [address] [place] [address] System, Provider Not In Discharge Disposition: Home [...] Recorded In the past 12 months has [employer], gas, oil, or water [employer] threatened to shut off services in your [...] any time in the past 12 m [facility], were you homeless or living in a [...] AM EDT 10/17/2024 naloxone (NARCAN) 4 mg/actuation [place] Apply 1 spray in one nostril [...] Hospital Encounter [facility] ENDOSCOPY [address] [place] [address] Chris Orosco MD [address] [place] [phone] 12/05/2024 8:01 AM EDT - 12/05/2024 8:31 AM EDT Surgery [facility] ENDOSCOPY [address] [place] [address] Chris Orosco MD [address] [place] [address] [phone] EGD Scheduled Procedures Name Priority Associated Diagnoses [...] documented as of this encounter Care Teams Cisco Administrator Relationship Specialty Start Date End Date Enedina Mcguire NP [address] [place] [address] PCP - General Internal Medicine 10/05/24 documented as of this encounter
--- OUTSIDE RECORDS SUMMARY | 2024-10-20 09:10 | XMS_ITS | Encounter Summary ---
Author Organization [facility] Address [facility][note 3]0 [place] [address] Care Team Providers Care Analyst Business Analysis Name Role Phone Enedina Mcguire NP Primary Care Provider [phone] Source Comments This information has been disclosed [...] release of HIV test results or diagnoses. [id number] Encounter Details Date Type Department Care Team (Latest Contact Info) Description 10/20/2024 9:10 AM EDT - 10/20/2024 11:59 PM EDT Hospital Encounter [facility] Radiology [address] [place] [phone] System, Provider Not In Discharge Disposition: Home [...] Recorded In the past 12 months has [employer], gas, oil, or water [employer] threatened to shut off services in your [...] AM EDT 10/17/2024 naloxone (NARCAN) 4 mg/actuation [place] Apply 1 spray in one nostril if [...] Hospital Encounter [facility] ENDOSCOPY [address] [place] [address] Chris Orosco MD [address] [place] [phone] 12/05/2024 8:01 AM EDT - 12/05/2024 8:31 AM EDT Surgery [facility] ENDOSCOPY [address] [place] [address] Chris Orosco MD [address] [place] [phone] EGD Scheduled Procedures Name Priority Associated Diagnoses [...] documented as of this encounter Care Teams Analyst Business Analysis Relationship Specialty Start Date End Date Enedina Mcguire NP [address] [place] [address] PCP - General Internal Medicine 10/05/24 documented as of this encounter
--- OUTSIDE RECORDS SUMMARY | 2024-10-20 09:10 | XMS_ITS | Encounter Summary ---
Author Organization [facility] Address [facility] [place] [address] Care Team Providers Care Field Sales Agent Name Role Phone Enedina Mcguire NP Primary Care Provider [phone] Source Comments This information has been disclosed [...] release of HIV test results or diagnoses. [id number] Encounter Details Date Type Department Care Team (Latest Contact Info) Description 10/20/2024 9:10 AM EDT - 10/20/2024 11:59 PM EDT Hospital Encounter [facility] Radiology [address] [place] [address] System, Provider Not In Discharge Disposition: Home [...] Recorded In the past 12 months has [employer], gas, oil, or water [employer] threatened to shut off services in your [...] AM EDT 10/17/2024 naloxone (NARCAN) 4 mg/actuation [place] Apply 1 spray in one nostril if [...] Description 12/05/2024 8:01 AM EDT Hospital Encounter [facility] ENDOSCOPY [address] [place] [address] Chris Orosco MD [address] [place] [phone] 12/05/2024 8:01 AM EDT - 12/05/2024 8:31 AM EDT Surgery [facility] ENDOSCOPY [address] [place] [address] Chris Orosco MD [address] [place] [address] [phone] EGD Scheduled Procedures Name Priority Associated Diagnoses [...] documented as of this encounter Care Teams Field Sales Agent Relationship Specialty Start Date End Date Enedina Mcguire NP [address] [place] [address] PCP - General Internal Medicine 10/05/24 documented as of this encounter
--- OUTSIDE RECORDS SUMMARY | 2024-10-25 20:46 | XMS_ITS | Encounter Summary ---
Author Organization [facility] Address [address] [place] [address] Care Team Providers Care Flare Worker Name Role Phone Enedina Mcguire NP Primary Care Provider + [phone] Alicia Pantoja RN Unavailable Unavail able Source [...] release of HIV test results or diagnoses. [id number] Reason for Referral * Surgical (Routine) - Authorized Specialty Diagnoses / Procedures Referred By Shane hernadez Referred To Contact Surgery Diagnoses Acute kidney injury superimposed on CKD (CMS-HCC) Procedures Case request operating room: TRANSPLANT KIDNEY with bile duct reconstruction Sveta Judge MD [address] [facility] [address] [place] [address] Phone: tel: fax: Referral ID Status Reason Start Date Expiration Date V isits Requested Visits Authorized [id number] Authorized 10/26/2024 04/24/2025 1 1 Reason for Visit * Auth/Cert (Routine) Specialty Diagnoses / Procedures Referred By Shane hernadez Referred To Contact Surgical Intensive Care Diagnoses Liver transplant recipient (CMS-HCC) cirrhosis and CKD Procedures LIVER-KIDNEY TRANSPLANT [facility] [address] [place] [address] Phone: tel: Referral ID Status Reason Start Date Expiration Date Visits Re quested Visits Authorized [id number] 1 1 Encounter Details Date Type Department Care Team (Latest Contact Info) Description 10/25/2024 8:46 PM EDT - 11/02/2024 6:23 PM EDT Hospital Encounter [address] [place] [address] Harvey Domínguez III, MD [address] [facility] [address] [place] [address] Lydia Sanchez MD [address] [facility] Liver/[place] [address] Acute kidney injury superimposed on CKD ([facility]) (Primary Dx); Prophylactic antibiotic; Prolonged QT interval; Immunosuppression ([facility]); Abdominal pain, unspecified abdominal location [...] Recorded In the past 12 months has [employer], or water [email or web address] threatened to shut off services in your [...] living in a correction (including now)? No 10/29/2024 Yearly Questionnaire Answer [...] Plata MD - 11/02/2024 2:[address] [facility] Liver Transplant Surgical Service Inpatient Discharge Summary Patient: Blair Gilbert : 1985 CSN: [id number] Date of Admission: 10/25/2024 Date of Discharge: [...] Case IDs Date Procedure Surgeon Location Status [id number] 10/25/24 LIVER TRANSPLANT Harvey Domínguez III, MD OR Comp [id number] 10/27/24 Donor Kidney Transplant , Back Bench [...] EXAM: US ABDOMEN LIMITED EXAM: US DUPLEX VZM-[id number] COMPLETE INDICATION: Post-op liver transplant COMPARISON: None [...] visualized secondary to poor acoustic windows. The sycuan right kidney measures 11.6 cm in length. [...] 30 tablet Refills: 0 naloxone 4 mg/actuation Evart Commonly known as: NARCAN Apply 1 spray [...] Medications These medications were sent to [facility] N[facility] - [address] [address] mycophenolate 250 mg capsule tacrolimus 1 MG capsule These medications were sent to [facility] [address] [place] [place] [facility] [address] Hours: Sunday - Sunday: 8:00AM - 6:00PM [...] Case IDs Date Procedure Surgeon Location Status [id number] 10/25/24 LIVER TRANSPLANT Harvey Domínguez III, MD OR Comp [id number] 10/27/24 Donor Kidney Transplant , Back Bench [...] discharge. NEURO/PAIN - Patient placed on Dilaudid LABEL PASTER once extubated, then transitioned to multi-modal pain [...] Ureteral stentis scheduled for removal on 11/25 [facility] - PT/OT evaluated patient and recommended Home PT/OT, outpatient PT/OT only available. ENDO - A1C is 5.0. Pt was not on diabetic regimen prior to arrival. Patient developed steroid-induced hyperglycemia 2/2 steroid regimen. Discharged home on the following regimen: HDSSI. Patient met w/ life skills educator prior to discharge. HEME - Post-operatively, [...] Patient and family received post-transplant education from quality improvement coordinator as well as medication teaching from [...] Department Center 11/04/2024 8:40 AM LTRA SURGERY, [facility] LTRA HOX [facility] 11/04/2024 10:10 AM LTRA HEPATORENAL [facility] LTRA HOX HOX 11/25/2024 9:00 AM NAA Merida [facility]RO MAB MAB 12/02/2024 2:00 PM Bossman Huffman MD [facility] 02/25/2025 10:50 AM Bruno Gonzalez MD [facility] HOX HOX Kenyettafahad Hartman, MS-4 [facility] SHAY PLATA MD 11/02/2024 12:50 [...] kept under 2 gm/day. Please discuss withyour in service coordinator if you have any question about appropriate dose to take. Other Instructions: Call post-liver transplant clinic with questions [phone] or call [facility] at [phone] and ask for the liver quality improvement coordinator precision farming specialist if you experience any of the [...] Department Center 11/04/2024 8:40 AM LTRA SURGERY, [facility] LTRA HOX [facility] 11/04/2024 10:10 AM LTRA HEPATORENAL [facility] LTRA HOX [facility] 11/25/2024 9:00 AM NAA Merida [facility] 12/02/2024 2:00 PM Bossamn Huffman MD [facility]EL M[facility] M[facility] 02/25/2025 10:50 AM [...] AM EDT 10/27/2024 lancets (ACCU-CHEK SOFTCLIX LANCETS) [facility] Use to test blood sugar up to [...] AM EDT 10/30/2024 naloxone (NARCAN) 4 mg/actuation Evart Apply 1 spray in one nostril if [...] and mycophenolate which were dispensed through [facility] per insurance requirements. Patient's confirms those [...] fair Expected caregiver involvement?: is primary med operations and maintenance manager Need for additional education in clinic?: routine reinforcement only Future medications to be obtained from, if known (select one): Tac/MMF to be filled from [facility] Financial concerns (if any): no [...] R-11 blood-glucose meter (TRUE METRIX GLUCOSE METER) [facility] Use to test blood sugar up to [...] Disp-15 mL, R-2 lancets (ACCU-CHEK SOFTCLIX LANCETS) [facility] Use to test blood sugar up to [...] Disp-30 tablet, R-0 naloxone (NARCAN) 4 mg/actuation Evart Apply 1 spray in one nostril if [...] Solid Organ Transplant Clinical Specialist Contact via [employer] Secure Chat * Froylan Hendrickson MD - 11/01/2024 8:04 AM EDT Liver Transplant Surgery Progress Note Name: Blair Gilbert CSN: [id number] Date: 11/01/2024 8:06 AM OR Date: 10/25/2024 [...] at 10/31/2024 4:38 PM EDT US Duplex Wtb-Plp-Paijffa Comp Result Date: 10/31/2024 IMPRESSION: RIGHT UPPER [...] 10/25/2024 - 10/27/2024. Plan: Liver transplant recipient ([facility]) [Z94.4] Neuro: - Multimodal pain [...] 3:24 PM EDT TXP - Follow Up [facility] Medical Nutrition Therapy Transplant [...] VHC- very high calorie protein supplement ([facility] and [facility] only) Pertinent Information: Pt seen for brief [...] Based on DBW of 93.1 kg Kcals/day: 4077-0130 (25-30 kcals/kg) Protein g/day: 140-190 (1.5-2.0 g/kg) [...] Dietitian - Solid Organ Transplant Contact via [employer] Chat * Keon Dobson - 10/31/2024 2:[address] [facility] Spiritual Care Volunteer Visit PATIENT NAME: Blair Gilbert ROOM:80/U8025 Congregational Affiliation:Yarsanism Blair Gilbert was visited by a volunteer today. No needs requiring a visit from a staff centrifugal casting machine tender were expressed at that time. Care Provided: Communion, Prayer/ blessing Please page our service at [phone] as needs arise for patient and/or family. Fr Dean Dobson Yarsanism centrifugal casting machine tender Spiritual Care Dept * Brittany Horne PT - 10/31/2024 1:42 PM EDT Physical Therapy Reason Patient Not Seen Name: Blair Gilbert : 1985 Attending Physician: Lydia Sanchez MD Admission Diagnosis: Liver transplant recipient ([facility]) [Z94.4] Date: 10/31/2024 Precautions: Precautions: [...] issued by OT: Long-handled sponge, Sock aid, Spinning Mule Tender, Other (comment) Equipment issued by OT comment: leg political director Assessment Assessment: Decreased ADL status, Decreased IADLs, [...] IADL task (Goal met and continued 10/31) Dye Range Tender Goal : Pt will complete bathing assessment [...] Alcoholic cirrhosis of liver (CMS-HCC) Esophageal varices ([facility]) Hepatorenal syndrome ([facility]) Hypertension Other hyperlipidemia 07/26/2024 Renal [...] Problem List Diagnosis Decompensated cirrhosis ([facility]) Acute kidney injury superimposed on CKD ([facility]) Alcohol use disorder Metabolic encephalopathy Hypertension Other hyperlipidemia Thrombocytopenia ([facility]) Renal mass, left Abdominal pain Hypokalemia CKD (chronic kidney disease) stage 4, GFR 15-29 ml/min ([facility]) Metabolic acidosis with normal anion gap and bicarbonate losses GERD (gastroesophageal reflux disease) Hypothyroidism Itching Anemia BRBPR (bright red blood per rectum) SBP (spontaneous bacterial peritonitis) ([facility]) C Diff Diarrhea C. difficile diarrhea Neck [...] 10/30/24699 - 10/31/2465810/31/24699 - 11/01/24 0659 Shift 9392-2856 7231-1751 7667-6931 24 Hour Total 1467-4586 2916-6430 8885-4708 24 Hour Total INTAKE P.O. 240 240 P.O. 240 240 Shift Total(mL/kg) 240(1.9) 240(1.9) OUTPUT Urine(mL/kg/hr) 1850(1.8) 600(0.6) 600(0.6) 3050(1) 350 350 Urine 800 378 280 0020 350 350 Urine Occurrence 2 x 2 [...] with further concerns Lavell Kramer MD 10/31/[phone] * Priti Geiger CNP - 10/31/2024 10:06 AM EDT Liver Transplant Surgery Progress Note Name: Blair Gilbert CSN: [id number] Date: 10/31/2024 10:06 AM OR Date: 10/25/2024 [...] 10/28/24 1109 LACTATE 0.3* Imaging US Duplex Wda-Way-Jabrjaf Comp Result Date: 10/28/2024 IMPRESSION: ABDOMINAL ULTRASOUND [...] 10/25/2024 - 10/27/2024. Plan: Liver transplant recipient ([facility]) [Z94.4] Neuro: - Multimodal pain [...] MD PhD Transplant Surgery * Caron Santos, MARKETING DATABASE CONSULTANT - 10/31/2024 9:30 AM EDT Images from the original note were not included. Transplant Nephrology Progress Note Patient: Blair Gilbert [id number] 8025/U8025 Date of Admit: 10/25/2024. 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 Lauren Santos, DNP, CREDIT OPERATIONS SPECIALIST, INFORMATION SERVICES VICE PRESIDENT- Transplant Nephrology [phone] Preferred contact: secure chat The HPI, ROS, [...] 0659 10/30/24 07 - 10/31/24 0659 Shift 4173-9207 4345-4436 6297-4237 24 Hour Total 9060-1391 0128-8988 7796-8848 24 Hour Total INTAKE P.O. 240 240 480 P.O. 240 240 480 IV Piggyback 87.2 87.2 Volume (mL) (micafungin (MYCAMINE) 50 mg in sodium chloride 0.9 % 100 mL Lhzf6Icz IVPB) 87.2 87.2 Shift Total(mL/kg) 240(2) 327.2(2.7) 567.2(4.4) OUTPUT Urine(mL/kg/hr) 600(0.6) 1175(1.2) 450(0.4) 2225(0.7) 550 550 Output (mL) (IUC (Berkowitz) Triple-lumen (3-Way) 18 Fr.) 600 3156 862 8505 550 550 Drains 175 245 100 520 [...] month of prophylaxis Lavell Kramer MD 10/30/[phone] * Priti Geiger, MARKETING DATABASE CONSULTANT - 10/30/2024 10:36 AM EDT Liver Transplant Surgery Progress Note Name: Blair Gilbert CSN: [id number] Date: 10/30/2024 10:37 AM OR Date: 10/25/2024 [...] 1109 LACTATE 0.5 0.3* Imaging US Duplex Adq-Cdn-Hsjlqpf Comp Result Date: 10/28/2024 IMPRESSION: ABDOMINAL ULTRASOUND [...] 10/25/2024 - 10/27/2024. Plan: Liver transplant recipient ([facility]) [Z94.4] Neuro: - Multimodal pain [...] Transplant Nephrology Progress Note Patient: Blair Gilbert [id number] 8025/U8025 Date of Admit: 10/25/2024. 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 Lauren Santos, DNP, CREDIT OPERATIONS SPECIALIST, INFORMATION SERVICES VICE PRESIDENT- Transplant Nephrology [phone] Preferred contact: secure chat The HPI, ROS, [...] EDT Pt seen, examined, and discussed with MARKETING DATABASE CONSULTANT on 10/30/2024. reviewed the chart including the [...] 3:36 PM EDT TXP - Follow Up [facility] Medical Nutrition Therapy Follow-Up [...] I/O: +23.3L net volume. 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 Admit Weight: 270 lb (122.5 kg) [...] Based on DBW of 93.1 kg Kcals/day: 1431-5076 (25-30 kcals/kg) Protein g/day: 140-190 (1.5-2.0 g/kg) [...] Dietitian - Solid Organ Transplant Contact via [employer] Chat * Anita Crystal, PT - 10/29/2024 2:04 PM EDT Physical Therapy Initial Assessment Name: Blair Gilbert : 1985 Attending Physician: Harvey Domínguez III, MD Admission Diagnosis: Liver transplant recipient (CMS-HCC) [Z94.4] Date: 10/29/2024 Room: [place] [address] [address] Reviewed Pertinent hospital course: Yes Hospital Course [...] with functional mobility at: 4/10 or less Residential Goal : Pt will ambulate 250' mod [...] liver (CMS-HCC) Esophageal varices (CMS-HCC) Hepatorenal syndrome ([facility]) Hypertension Other hyperlipidemia 07/26/2024 Renal [...] Problem List Diagnosis Decompensated cirrhosis ([facility]) Acute kidney injury superimposed on CKD ([facility]) Alcohol use disorder Metabolic encephalopathy Hypertension Other hyperlipidemia Thrombocytopenia ([facility]) Renal mass, left Abdominal pain Hypokalemia CKD (chronic kidney disease) stage 4, GFR 15-29 ml/min ([facility]) Metabolic acidosis with normal anion gap and bicarbonate losses GERD (gastroesophageal reflux disease) Hypothyroidism Itching Anemia BRBPR (bright red blood per rectum) SBP (spontaneous bacterial peritonitis) ([facility]) C Diff Diarrhea C. difficile diarrhea Neck pain with history of cervical spinal surgery * Shanel Pabon, OT - 10/29/2024 1:23 PM EDT Occupational Therapy Initial Assessment Name: Blair Gilbert : 1985 Attending Physician: Harvey Domínguez III, MD Admission Diagnosis: Liver transplant recipient ([facility]) [Z94.4] Date: 10/29/2024 Room: [place] [address] [address] Reviewed Pertinent hospital course: Yes Hospital Course [...] Intervention(s): Ambulation/increased activity;Repositioned Therapist reported pain to: order packer or packager Oxygen Supplemental Oxygen Supplemental Oxygen: None (Room [...] distance ambulation in prep for IADL task Dye Range Tender Goal : Pt will complete bathing assessment and transfer technician terminal and repeater goal to be met in: 2 weeks [...] stage 4, GFR 15-29 ml/min ([facility]) Metabolic acidosis with normal anion gap and bicarbonate losses GERD (gastroesophageal reflux disease) Hypothyroidism Itching Anemia BRBPR (bright red blood per rectum) SBP (spontaneous bacterial peritonitis) ([facility]) C Diff Diarrhea C. difficile diarrhea Neck pain with history of cervical spinal surgery * Caron Santos CNP - 10/29/2024 10:30 AM EDT Images from the original note were not included. Transplant Nephrology Progress Note Patient: Blair Gilbert [id number] SICU-28/IC-28 Date of Admit: 10/25/2024. 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 Lauren Santos, DNP, CREDIT OPERATIONS SPECIALIST, INFORMATION SERVICES VICE PRESIDENT- Transplant Nephrology [phone] Preferred contact: secure chat The HPI, ROS, [...] EDT Pt seen, examined, and discussed with MARKETING DATABASE CONSULTANT on 10/29/2024. reviewed the chart including the labs and imaging studies. My additional comments below. 39 y.o. 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 S/p SLK 10/25-10/26 Has great UOP 4.2L; 720 drain output Aaron Gonzalez MD, MEd, FASN * Kenyetta Hartman - 10/29/2024 10:07 AM EDT Liver Transplant Surgery Progress Note Name: Blair Gilbert CSN: [id number] Date: 10/29/2024 10:08 AM OR Date: 10/25/2024 [...] LACTATE 0.4* 0.5 0.3* Imaging US Duplex Dxl-Qtq-Jlbtfvc Comp Result Date: 10/28/2024 IMPRESSION: ABDOMINAL ULTRASOUND [...] at 10/27/2024 10:38 AM EDT US Duplex Gzm-Ian-Daarfcf Comp Result Date: 10/27/2024 IMPRESSION: RIGHT UPPER [...] 10/25/2024 - 10/27/2024. Plan: Liver transplant recipient ([facility]) [Z94.4] Neuro: - Multimodal pain [...] SQH, SCDs DISPO: floor KENYETTA HARTMAN, MS4 [facility] General Surgery 10:08 AM 10/29/2024 Cosigned by [...] Intake/Output last 3 shifts: Date 10/28/24699 - 10/29/24 0659 10/29/24 07 - 10/30/24 0659 Shift 6276-3111 3523-6096 1412-4235 24 Hour Total 9991-5687 2924-5305 6681-0778 24 Hour Total INTAKE P.O. 240 0 [...] IV infusion) 253.9 374.7 775.6 1404.2 Blood 6650 762 7169 Albumin 750 750 Volume (Transfuse RBC Transfusion Rate: Per dept routine) 310 310 Volume (Transfuse RBC Transfusion Rate: Per dept routine) 271 271 IV Piggyback 918.4 762 47 3557.4 Volume (mL) (micafungin (MYCAMINE) 50 mg in sodium chloride 0.9 % 100 mL Icfp1Aol IVPB) 99.9 99.9 Volume (mL) (albumin human [...] month of prophylaxis Lavell Kramer MD 10/29/[phone] * John Moreno MD - 10/29/2024 6:47 AM EDT SURGICAL ICU PROGRESS NOTE 10/29/2024 6:47 AM Name: Blair Gilbert CSN: [id number] HPI: Blair Gilbert is a 39 y.o. [...] to 4 times a day. DEXCOM G7 TRAVEL PHYSICAL THERAPIST Misc Use reader as directed. DEXCOM G7 [...] times a day. naloxone (NARCAN) 4 mg/actuation Evart Apply 1 spray in one nostril if [...] 37 37 35 PO2ART 245* 182* 92 VDV4BJL 22 21* 21* BEART -4.2* -4.8* -4.6* [...] at baseline or with provocation, shows no wnjcp-of-obzf atrial level shunt. - Pulmonary arteries: Systolic [...] Home pantoprazole 40mg daily, continue Last BM: CHISEL WORKER - suppository today Bowel regimen: Miralax today, [...] results for input(s): TEGANGLE , TEGKTIME , FHAPWDJX97 , TEGMAXAMPL , TEGRTIME , CBMZ in [...] in sodium chloride 0.9 % 100 mL Qtiv0Egq IVPB 50 mg Every 24 hours 10/27/2024 -- Admin Instructions: PROTECT FROM LIGHT FLUSH LINE w/NSS PRIOR TO ADMINISTRATION Use Jnzb4Pcw Adapter - Mix Thoroughly Before Administration Route: [...] BID Continuous Infusions: HYDROmorphone 6 mg/30 mL LABEL PASTER norepinephrine 4 mcg/min (10/27/24 2318) sodium chloride [...] - 10/28/2465810/28/24 07 - 10/29/24 0659 Shift 5523-3857 9255-3508 5111-4904 24 Hour Total 3296-1902 9522-3679 6734-9763 24 Hour Total INTAKE P.O. 0 120 [...] in sodium chloride 0.9 % 100 mL Lape7Ftt IVPB) 100 100 Volume (mL) (albumin human 5%) 126 126 Volume (mL) (potassium chloride (KCl)/Sterile water 50 mL 20 mEq/50 mL IVPB 20 mEq) 100 100 Volume (mL) (AMPicillin 1 g in sodium chloride 0.9% 100 mL IVPB (Ivly6Log)) 100.1 57 42.9 200 Volume (mL) (mycophenolate (CELLCEPT) 500 mg in dextrose 5% in water (D5W) 50 mL IVPB) 50 5.3 55.3 Shift Total(mL/kg) 2079.3(17) 1161(9.5) 787.3(6.4) 4027.6(32.9) OUTPUT Urine(mL/kg/hr) 2195(2.2) 1000(1) 900(0.9) 4095(1.4) 490 490 Urine 360 360 Output (mL) (IUC (Berkowitz) Triple-lumen (3-Way) 18 Fr.) 1835 9117 661 4019 490 490 Emesis/NG output 50 50 Drainage [...] month of prophylaxis Lavell Kramer MD 10/28/[phone] * Caron Santos CNP - 10/28/2024 9:00 AM EDT Images from the original note were not included. Transplant Nephrology Progress Note Patient: Blair Gilbert [id number] SICU-28/USIC-28 Date of Admit: 10/25/2024. 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 Lauren Santos, SAMSON, CREDIT OPERATIONS SPECIALIST, INFORMATION SERVICES VICE PRESIDENT- Transplant Nephrology [phone] Preferred contact: secure chat The HPI, ROS, [...] Surgery Progress Note Name: Blair Gilbert CSN: [id number] Date: 10/28/2024 11:05 AM OR Date: 10/25/2024 - 10/27/2024 Subjective: 1 Day Post-Op Received one unit pRBCs overnight On low dose levo this morning Increasing tachycardia Reports worsening pain, on LABEL PASTER Tolerated sips of clears No nausea/vomiting, no [...] Oral BID Continuous: HYDROmorphone 6 mg/30 mL LABEL PASTER norepinephrine Stopped (10/28/24 0637) sodium chloride 0.9 [...] at 10/27/2024 10:38 AM EDT US Duplex Bdt-Btd-Rpkmrkp Comp Result Date: 10/27/2024 IMPRESSION: RIGHT UPPER [...] 10/25/2024 - 10/27/2024. Plan: Liver transplant recipient ([facility]) [Z94.4] Neuro: - Multimodal pain control: dilaudid LABEL PASTER, tylenol, robaxin. PRN dilaudid for breakthrough CV: [...] SCDs DISPO: SICU SHAY PLATA MD, MS4 [facility] Surgery 11:05 AM 10/28/2024 Cosigned by Lydia [...] 10/28/2024 6:17 AM Name: Blair Gilbert CSN: [id number] HPI: Blair Gilbert is a 39 y.o. [...] day. blood-glucose meter (TRUE METRIX GLUCOSE METER) [facility] Use to test blood sugar up to 4 times a day. DEXCOM G7 TRAVEL PHYSICAL THERAPIST Misc Use reader as directed. DEXCOM G7 [...] and at bedtime. lancets (ACCU-CHEK SOFTCLIX LANCETS) [facility] Use to test blood sugar up to 4 times a day. methocarbamoL (ROBAXIN) 500 MG tablet Take 1 tablet (500 mg total) by mouth 3 times a day. naloxone (NARCAN) 4 mg/actuation Evart Apply 1 spray in one nostril if [...] Oral BID Continuous: HYDROmorphone 6 mg/30 mL LABEL PASTER insulin regular in 0.9 % sodium chloride [...] 37 37 35 PO2ART 245* 182* 92 UVI7FHQ 22 21* 21* BEART -4.2* -4.8* -4.6* [...] at baseline or with provocation, shows no ycmix-da-vjia atrial level shunt. - Pulmonary arteries: Systolic [...] while intubated,convert to PO today Last BM: CHISEL WORKER Bowel regimen: Miralax today, hold senna til [...] ml IV Fluids: HYDROmorphone 6 mg/30 mL LABEL PASTER insulin regular in 0.9 % sodium chloride, [...] results for input(s): TEGANGLE , TEGKTIME , TNQTOUTK37 , TEGMAXAMPL , TEGRTIME , CBMZ in [...] in sodium chloride 0.9% 100 mL IVPB (Usdf8Mvr) (Completed) 1 g Every 6 hours scheduled 10/26/2024 10/28/2024 Admin Instructions: Dosage may need to be adjusted for renal dysfunction. Full dose is 1g IV q6h Use Nygb8God Adapter - Mix Thoroughly Before Administration Notes to Pharmacy: On supervisor order takers estimated creatinine clearance is 35.9 mL/min (A) [...] in sodium chloride 0.9 % 100 mL Rvgr3Qmu IVPB 50 mg Every 24 hours 10/27/2024 -- Admin Instructions: PROTECT FROM LIGHT FLUSH LINE w/NSS PRIOR TO ADMINISTRATION Use Hgfs4Myv Adapter - Mix Thoroughly Before Administration Route: [...] Caprini Risk Score of 10 and [facility] transplant protocol, I recommend discharging on heparin [...] Solid Organ Transplant Clinical Specialist Contact via BaseKit Secure Chat Preferred O. [phone] * Chinedu Almeida BATON TEACHER - 10/27/2024 1:10 PM EDT Patient extubated [...] PCO2 37 10/27/2024 PO2ART 245 (H) 10/27/2024 HUL5VBC 22 10/27/2024 BEART -4.2 (L) 10/27/2024 HOW3TCZ 96.5 10/27/2024 O8RQVYDE 100 10/27/2024 Based on this SBT assessment [...] Surgery Progress Note Name: Blair Gilbert CSN: [id number] Date: 10/27/2024 11:40 AM OR Date: 10/25/2024 - 10/27/2024 Subjective: * Day of Surgery * Remains intubated in SICU Sedated but appropriately nods to questions No acute distress Objective: BP 100/48 Pulse 89 Temp 99 ??F (37.2 ??C) (Milmay) Resp 9 Ht 6' 4 (1.93 m) [...] at 10/27/2024 10:38 AM EDT US Duplex Lkz-Xpo-Umffnld Comp Result Date: 10/27/2024 IMPRESSION: RIGHT UPPER [...] 10/27/2024. Problem List[1] Plan: Liver transplant recipient ([facility]) [Z94.4] Neuro: - Propofol/fentanyl CV: [...] SQH, SCDs DISPO: SICU KENYETTA HARTMAN, MS4 [facility] Surgery 11:40 AM 10/27/2024 [1] Patient Active Problem List Diagnosis Decompensated cirrhosis ([facility]) Acute kidney injury superimposed on CKD ([facility]) Alcohol use disorder Metabolic encephalopathy Hypertension Other hyperlipidemia Thrombocytopenia ([facility]) Renal mass, left Abdominal pain Hypokalemia CKD (chronic kidney disease) stage 4, GFR 15-29 ml/min ([facility]) Metabolic acidosis with normal anion gap and bicarbonate losses GERD (gastroesophageal reflux disease) Hypothyroidism Itching Anemia BRBPR (bright red blood per rectum) SBP (spontaneous bacterial peritonitis) ([facility]) C Diff Diarrhea C. difficile diarrhea Neck [...] Domínguez III, MD Transplant Surgery (cell) * Chiendu Almeida, BATON TEACHER - 10/27/2024 11:14 AM EDT Placed on [...] 10/27/2024 7:16 AM Name: Blair Gilbert CSN: [id number] HPI: Blair Gilbert is a 39 y.o. [...] for 30 days. FREESTYLE NIDA 3 READER [facility] Use 1 each as directed Use as [...] in the morning and at bedtime. lancets [facility] Use to test blood sugar up to 4 times a day. Dx: 9.65. Brand per pharmacy / insurance preference. methocarbamoL (ROBAXIN) 500 MG tablet Take 1 tablet (500 mg total) by mouth 3 times a day. mycophenolate (CELLCEPT) 250 mg capsule Take 2 capsules (500 mg total) by mouth 2 times a day. naloxone (NARCAN) 4 mg/actuation Evart Apply 1 spray in one nostril if [...] 47* 36 37 PO2ART 127* 91 137* GOD1LQM 21* 22 20* BEART -5.4* -3.9* -6.4* [...] at baseline or with provocation, shows no xecpj-tp-htfs atrial level shunt. - Pulmonary arteries: Systolic [...] IV pantoprazole while intubated, NPO Last BM: CHISEL WORKER Bowel regimen: Senna/Miralax when able Nausea: Zofran [...] 10/27/2024 0715 Gross per 24 hour Intake 16560.82 ml Output 7060 ml Net 6224.82 ml [...] 72 hours. Recent Labs 10/26/24 1048 10/26/24 16410/27/24 0013 INR 2.0* 1.7* 1.5* PROTIME 23.0* 20.3* 18.6* No results for input(s): TEGANGLE , TEGKTIME , TJLJVNKM20 , TEGMAXAMPL , TEGRTIME , CBMZ in [...] in sodium chloride 0.9% 100 mL IVPB (Svgj4Hlo) 1 g Every 6 hours scheduled Admin Instructions: Dosage may need to be adjusted for renal dysfunction. Full dose is 1g IV q6h Use Iiry1Owr Adapter - Mix Thoroughly Before Administration Notes to Pharmacy: On supervisor order takers estimated creatinine clearance is 35.9 mL/min (A) (based on SCr of 3.87 mg/dL (H)). 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 naloxone (NARCAN) 4 mg/actuation Evart Apply 1 spray in one nostril if [...] Resource Strain: Low Risk (07/09/2024) Received from [facility] Overall Financial Resource Strain (CARDIA) Difficulty [...] No Physical Activity: Unknown (07/14/2024) Received from [facility] Exercise Vital Sign Days of Exercise per Week: Patient unable to answer Minutes of Exercise per Session: Not on file Stress: Patient Unable To Answer (07/14/2024) Received from [facility] [place] of Occupational Health - Occupational Stress Questionnaire Feeling of Stress : Patient unable to answer Social Connections: Patient Unable To Answer (07/14/2024) Received from [facility] Social Connection and Isolation Panel [NHANES] [...] admitted to SICU post-op. LEANDRA OG MD [facility] Surgery Liver Transplant Pager: [phone] 8:24 PM 10/25/2024 Cosigned by Harvey [...] Name: Blair Gilbert Date: 1985 Billing #: [id number] Date of Procedure: 10/25/2024 Diagnosis: End Stage Renal Disease Procedure: 1. Donor Kidney Transplant 2. Back Bench Preparation Donor Kidney 3. Baseline Kidney transplant biopsy 4. Insertion of Indwelling Stent 5. Removal of Perihepatic packing Surgeons * Flaquito Ba MD Fiber Machine Tender MD Shayan Findings: Low Hockey stick incision [...] min Operative Times: Cross clamp on donor: 10/25/241925 Incision on recipient: 10/25/24 0325 Kidney taken [...] donor was ABO O and UNOS ID [id number], Match Run [id number] (SLK). This donor was a Donor after cardiac [...] was then wanded with the lap detection laundry assistant. The incision was ex tented 2 [...] for the bile duct reconstruction and closure. Flaquiot Ba MD Transplant Surgeon rib puller * Flaquito Ba MD - 10/27/2024 6:15 AM EDT TRANSPLANT KIDNEY with bile duct reconstruction Brief Op Note Blair Gilbert 10/27/2024 Pre-op Diagnosis: Acute kidney injury superimposed on CKD (CMS-HCC) [N17.9, N18.9] Post-op Diagnosis: same Procedure(s): TRANSPLANT KIDNEY Surgeon(s): MD Harvey Washington III, MD Anesthesia: General Endotracheal Staff: Boat Camp Operator: Chinedu Quinn RN Scrub Person: ST Angela Fellow: Kemar Sahni MD 2nd Boat Camp Operator: Marty Clark RN 3rd Boat Camp Operator: Candis Mcdaniel RN FINDINGS Berkowitz 3 day Drains: Intraabdominal (perihepatic) UNOS ID [id number], Match Run [id number] Kid WIT 27 min Kid CIT 33 hours Estimated Blood Loss: 200 mL Specimens: Specimens ID Description Commments Type Source Tests Collected By Collected At 1 1) perfusate 1) perfusate Fluid Kidney Left ANAEROBIC CULTURE FUNGUS CULTURE ROUTINE CULTURE PLUS STAIN Harvey Domínguez III, MD 10/27/24214 A Baseline Renal Biopsy Tissue Kidney Left SURGICAL PATHOLOGY EXAM Harvey Domínguez III, MD 10/27/24 023 Drains: NG/OG Tube Orogastric (Active) Placement Verification [...] (Berkowitz) Triple-lumen (3-Way) 18 Fr. (Active) Status Adolphus Drainage 10/26/241999 Collection Container Standard drainage bag [...] Duct Anastomosis Kidney transplant Surgeon(s): MD Harvey Washignton III, MD Anesthesia: General Endotracheal Staff: Boat Camp Operator: Chinedu Quinn RN Relief Boat Camp Operator: Michela Amos RN Relief Scrub: Stephani Blake RN Scrub Person: ST Angela Fellow: Kemar Sahni MD 2nd Boat Camp Operator: Marty Clark RN 3rd Boat Camp Operator: Candis Mcdaniel RN Estimated Blood Loss: [...] (Berkowitz) Triple-lumen (3-Way) 18 Fr. (Active) Status Adolphus Drainage 10/26/241999 Collection Container Standard drainage bag [...] of days: 5 End to end choledochocholedochostomy Ebrkowitz 3 day Drains: 2 Intraabdominal (perihepatic) UNOS ID [id number], Match Run [id number] Donor: young DCD NRP Kid WIT 27 [...] BLAIR GILBERT DATE OF : 1985 CSN: [id number] PHYSICIAN: Harvey Domínguez III, MD ADMIT DATE: 10/25/2024 DICTATED BY: Harvey Domínguez III, MD SURGERY DATE: 10/27/2024 OPERATIVE REPORT SURGEON: Harvey Domínguez III, MD MOLD INSERT CHANGER SURGEON: Kemar Sahni MD. PREOPERATIVE DIAGNOSIS: Open [...] were made hemostatic with the argon beam lead investigator. We assessed the flows of the portal [...] a mucocele formation. We then performed a nwft-fh-wzzn choledochocholedochostomy in an end to end fashion [...] small umbilicalhernia that was closed with a fenaog-yo-juuak 0 PDS suture. At this point, we [...] complications. MD CARLOS A HARMON III/AQ JOB#: [id number] * Harvey Domínguez III, MD - 10/26/2024 7:00 AM EDT Patient Name: Blair Gilbert Date: 1985 Billing #: [id number] Date of Procedure: 10/25/2024 - 10/26/2024 Diagnosis: Chronic Hepatic Failure without coma Procedure: 1. Orthotopic Liver Transplant 2. Back Bench Preparation Donor Liver 3. Temporary portocaval shunt 4. Perihepatic packing for control of hemorrhage 5. Placement of external choledochal stent 6. Temporary abdominal closure Attending surgeons: Harvey Domínguez III, MD Fiber Machine Tender Surgeon(s): Sveta Judge MD Findings: Whole organ placed in piggyback fashion with suprahepatic cava of donor to common orifice of all three hepatic veins for IVC anastomosis. Donor main portal vein to recipient main portal vein. Donor common hepatic artery to recipient right hepatic artery. Temporary abdominal with perihepatic packingfor control of hemorrhage. Externalization of bile duct with 8 Romanian pediatric feeding tube. Portal Flow Modulation No [...] This donor was ABO O and UNOSID [id number], Match Run [id number]. This was a 42-year-old donation after circulatory [...] After completion of the outflow anastomosis, a Spanish clamp was placed across the donor suprahepatic [...] artery flows were then measured with the STYLHUNT device. The portal flow was 3.4 L/min [...] do a temporary abdominal closure. An 8 Romanian pediatric feeding tube was brought through the [...] Sveta Alves III, MD Anesthesia: General Staff: Boat Camp Operator: Mak Maher RN; Marty Clark RN Scrub Person: ST Angela Resident: Thuy Leon MD manager project: Jose Daniel Arana RRT Estimated Blood Loss: [...] Number of days: 5 Surgery Information: -UNOS#: [id number] -ABO: O to O -Recipient: SLK candidate [...] 1:19 PM EDTAssociated Order(s): IP CONSULT TO COTTON PICKING MACHINE OPERATOR [facility] Transplant Discharge Education Note [...] Gomez, MSN, RN, NPD- Diabetes Education Office [phone] Schedule: M-F 8:00am-4:30pm * Ben Weiss RD - 10/27/2024 4:06 PM EDTAssociated Order(s): IP CONSULT TO NUTRITION SERVICES; IP CONSULT TO NUTRITION SERVICES TXP - Initial [facility] Medical Nutrition Therapy Reason(s) [...] I/O: +23.2L net volume. Last BM Date: (CHISEL WORKER). Admit Weight: 270 lb (122.5 kg) Current [...] Based on DBW of 93.1 kg Kcals/day: 1622-1355 (25-30 kcals/kg) Protein g/day: 140-190 (1.5-2.0 g/kg) [...] Dietitian - Solid Organ Transplant Contact via BaseKit Chat * Lavell Kramer MD - 10/27/2024 11:09 AM EDTAssociated Order(s): INPATIENT CONSULT TO TRANSPLANT INFECTIOUS DISEASES Infectious Disease Consultation Patient: Blair Gilbert CSN: [id number] Assessment & Plan 39 y.o. M s/p [...] pending - blood cx's if febrile Lavell rKamer MD [phone] Chief Complaint Long Qtc History of Present [...] Resource Strain: Low Risk (07/09/2024) Received from [facility] Overall Financial Resource Strain (CARDIA) Difficulty [...] No Physical Activity: Unknown (07/14/2024) Received from [facility] Exercise Vital Sign Days of Exercise per Week: Patient unable to answer Minutes of Exercise per Session: Not on file Stress: Patient Unable To Answer (07/14/2024) Received from [facility] [place] [facility] [employer]ational Health - Occupational Stress Questionnaire Feeling of Stress : Patient unable to answer Social Connections: Patient Unable To Answer (07/14/2024) Received from [facility] Social Connection and Isolation Panel [NHANES] [...] to 4 times a day. DEXCOM G7 TRAVEL PHYSICAL THERAPIST Misc Use reader as directed. DEXCOM G7 [...] and at bedtime. lancets (ACCU-CHEK SOFTCLIX LANCETS) [facility] Use to test blood sugar up to 4 times a day. methocarbamoL (ROBAXIN) 500 MG tablet Take 1 tablet (500 mg total) by mouth 3 times a day. mycophenolate (CELLCEPT) 250 mg capsule Take 2 capsules (500 mg total) by mouth 2 times a day. naloxone (NARCAN) 4 mg/actuation Evart Apply 1 spray in one nostril if [...] CKD IIIb/IV: - Presumed s/t HRS - Analyst Business Analysis: Yovanny Curran at [facility] Allograft Function: S/p SLK 10/25- (kidney [...] 10/27/2024 1500 Gross per 24 hour Intake 47093.28 ml Output 5950 ml Net 6403.28 ml Heme/Anemia: WBC: 5.8 Goal HgB 10-12 mg/dL Hgb: 7.5 Plt 50 Iron: 128 on 10/25/2024 Ferritin 623.2 on 10/25/2024 TIBC: SEE COMMENT on 10/25/2024 % Iron Saturation: SEE COMMENT on 10/25/2024 [id number]: No results found for requested labs within [...] - Monitor renal function. No indications for BATON TEACHER. Good UOP - Noted KT US WNL [...] preliminary until attending attestation. Lauren Santos, DNP, CREDIT OPERATIONS SPECIALIST, INFORMATION SERVICES VICE PRESIDENT- Transplant Nephrology [phone] Preferred contact: secure chat [1] Allergies Allergen [...] Gonzalez MD, MEd, FASN * Marcellus Hebert, INTERNATIONAL MARKETING INTERN, INTERNATIONAL CONTROLLER - 10/27/2024 10:21 AM EDT HEALTH Care Management/Social Work Assessment Patient Information Patient Name: Blair Gilbert Hospital Day: 2 Inpatient/Observation: Inpatient Admit Date: 10/25/2024 Admission Diagnosis: Liver transplant recipient ([facility]) [Z94.4] Attending provider: Harvey Domínguez III, MD PCP: Enedina Mcguire NP Home Pharmacy: [facility] [address] [place] [address] [facility] [address] [facility] [address] Issues related to obtaining medications: N/A Payor Information Medical Insurance Coverage: Payor: [facility] / Plan: [facility] / Product Type: *No Producttype* / Secondary Payor: N/A Functional Assessment Functional Assessment Assessment Information Obtained From:: Spouse (Abdiaziz Carringtonen) Current Mental Status: Intubated, Unable to Assess Mental Status Prior to Admission: Unable to Assess Mental Health History: Yes (PTSD,Generalized Anxiety Disorder) Behavioral Health Agency Involvement: ( Transplant Psych) Do you need Mental Health treatment resources?: No Patient Requests Social Work Consult?: No Substance Abuse: Yes Last Substance Abuse Date: 07/09/24 Treatment History: 12 weeks of CD Treatement at [facility] Do you need Substance Abuse Treatment Resources?: [...] Was any abuse reported by patient?: No Parmele Status & Connection to VA Services Status [...] resides with his spouse at their [facility] in [place]. 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 Patient's LNOK:Spouse, Abdiaziz Gilbert, Patient has no current or past history of suicidal/homicidal ideation. Patient has a history of mental health diagnoses, PTSD and Generalized Anxiety Disorder. Patient is connected with TransplantPsychiatrist and prescribed Prozac. Patient has a history of alcohol use and has completed 12 weeksof CD Treatment at [facility]. Spouse explained that he will complete a 6 month virtual program post transplant but could not recall the name of the program. Patient has no current tobacco use. No previous need or recommendation for home health care services and no previous placements at penitentiary facility and/or inpatient rehab program. Patient has [...] as appropriate. NUBIA Escalera, RONALDO Phone Number: [phone] * John Moreno MD - 10/26/2024 3:41 AM EDT SURGICAL ICU CONSULT NOTE 10/26/2024 3:41 AM Name: Blair Gilbert CSN: [id number] HPI: Blair Gilbert is a 39 y.o. [...] at 9:00 PM naloxone (NARCAN) 4 mg/actuation Evart Apply 1 spray in one nostril if [...] % 250 mL infusion 2.5 mcg/min (10/26/24 6808) insulin regular in 0.9 % sodium chloride [...] input(s): PHART , PCO2 , PO2ART , UWK1MSZ , BEART in the last 72 hours. [...] at baseline or with provocation, shows no uuvlm-ih-wdhk atrial level shunt. - Pulmonary arteries: Systolic [...] IV pantoprazole while intubated, NPO Last BM: CHISEL WORKER Bowel regimen: Senna/Miralax when able Nausea: Zofran PRN FLUID/ELECTROLYTES Recent Labs 10/25/24 2217 NA 137 K 2.1* CL 100 CO2 20* BUN 74* CREATININE 3.87* CALCIUM 9.3 PHOS 5.9* GLUCOSE 114* Intake/Output Summary (Last 24 hours) at 10/26/2024 0341 Last data filed at 10/26/2024 0326 Gross per 24 hour Intake 74221 ml Output 675 ml Net 77745 ml IV Fluids: EPINEPHrine (ADRENALIN) 10 mg in sodium chloride 0.9 % 250 mL infusion, Last Rate: 2.5 mcg/min (10/26/24 057) insulin regular in 0.9 % sodium chloride norepinephrine, Last Rate: 18 mcg/min (10/26/24 5703) vasopressin, Last Rate: 0.04 Units/min (10/26/24 0244) [...] results for input(s): TEGANGLE , TEGKTIME , HGBDGQQH42 , TEGMAXAMPL , TEGRTIME , CBMZ in [...] in sodium chloride 0.9% 100 mL IVPB (Ixog1Lkv) 2 g Every 6 hours 10/26/2024 -- Admin Instructions: Use Nxml1Mjv Adapter - Mix Thoroughly Before Administration Notes to Pharmacy: On supervisor order takers estimated creatinine clearance is 35.9 mL/min (A) (based on SCr of 3.87 mg/dL (H)). Route: Intravenous AMPicillin 2 g in sodium chloride 0.9% 100 mL IVPB (Mrbw7Cok) 2 g Once 10/26/2024 -- Admin Instructions: Use Njsi3Kim Adapter - Mix Thoroughly Before Administration Notes to Pharmacy: On supervisor order takers estimated creatinine clearance is 35.9 mL/min (A) (based on SCr of 3.87 mg/dL (H)). Route: Intravenous cefTRIAXone (ROCEPHIN) 2 g in sodium chloride 0.9 % 100 mL Nfui1Nfo (Completed) 2 g Once 10/25/2024 10/26/2024 Admin Instructions: Use Ubkc3Tsi Adapter - Mix Thoroughly Before Administration Route: [...] R IJ Mac Arterial Line? R radial [place] Urinary Catheter? Berkowitz - Reason: Adequate I/O [...] 47 (H) 10/26/2024 PO2ART 127 (H) 10/26/2024 EGA9KMN 21 (L) 10/26/2024 BEART -5.4 (L) 10/26/2024 DEH8CAW 94.6 (L) 10/26/2024 V0OJSMFF 98 10/26/2024 P:F ratio = 363 CARDIOVASCULAR: [...] Acute Care Surgery, and Surgical Critical Care [facility] Academic Office [phone] For Transfers, call [phone] documented in this encounter Nursing Notes * Paulette Flannery RN - 11/02/2024 6:23 PM EDT Reviewed and completed AVS with patient. Discharge education completed. Discharge medication delivered to patient room. All PIVs removed. Patient denies any further questions or concerns. Transport called. Patient leaving unit with all belongings. * Vivi Newton RN - 10/31/2024 1:42 PM EDT Oral contrast started at 1340. * oSco Yap RN - 10/29/2024 6:07 PM EDT [...] Escalera, RONALDO - 10/31/2024 11:34 AM EDT [facility] Case Management/Social Work Department Progress Note Patient [...] disease. PCP: Enedina Mcguire NP Home Pharmacy: [facility] [address] [place] [address] [address] [facility] [address] [facility] [address] [facility] [address] [facility] 105 [facility] [address] Medical Insurance Coverage: Payor: [employer] CARE / Plan: [employer] / [...] educator aware that there were no accepting [facility] agencies([facility], [facility], [facility]) and patient would need to outpatient for PT/OT and labs. Discharge Plan Anticipated discharge plan: Home with HHC vs Home with outpatient Anticipated discharge date: 11/01 CM/SW will continue to follow and remain available for discharge planning needs. NUBIA Escalera, RONALDO Cell [phone] * Plan of Care - Paulette Flannery [...] hyperlipidemia (07/26/2024), Renal cell carcinoma (CMS-HCC), Thrombocytopenia ([facility]), and Thyroid disease. PCP: Enedina Mcguire NP Home Pharmacy: [facility] [address] [place] [address] [address] [facility] [address] [facility] [address] [facility] [place], [place] - [address] [facility] 105 [facility] [id number] Medical Insurance Coverage: Payor: [facility] CARE / Plan: [facility] / [...] for HHC, patient was busy receiving care. MEREDITH called spouseto see if patient would be agreeable to HHC, spouse stated patient/spouse were hoping for assistance and is agreeable to a blanket referral. MEREDITH submitted blanket HHC referral to [facility], [facility], [facility], and [facility]. Awaiting responses. SW to followpending clearance home [...] remain available for discharge planning needs. Citlaly Nova, INTERNATIONAL MARKETING INTERN, INTERNATIONAL CONTROLLER Inpatient Heating And Ventilating Drafter/Care Coordination [phone] * Plan of Care - Soco Yap [...] Escalera, RONALDO - 10/28/2024 2:29 PM EDT [facility] Case Management/Social Work Department Progress Note Patient [...] disease. PCP: Enedina Mcguire NP Home Pharmacy: [facility] [address] [address] [facility] [address] [facility] [address] [facility] [place] [address] [place] [address] Medical Insurance Coverage: Payor: [employer] [facility] [...] discharge planning needs. NUBIA Escalera, RONALDO Cell [phone] * Plan of Care - Elaine Carrillo [...] at all times. Outcome: Completed Problem: Non-violent, fvs-vdtn-iakkmegqzos restraints Description: Less restrictive alternative interventions will [...] of medical procedures, or protection of medical information officer access. Outcome: Completed * Plan of Care [...] foods as appropriate. Outcome: Progressing Problem: Non-violent, vxg-godn-cbtmddnyrnh restraints Description: Less restrictive alternative interventions will [...] of medical procedures, or protection of medical information officer access. Outcome: Progressing * Plan of Care - Shanel Shen RN - 10/27/2024 9:00 AM EDT Problem: Non-violent, jpk-zroy-aywrvfxkzyj restraints Description: Less restrictive alternative interventions will [...] - 10/26/2024 7:41 PM EDT Problem: Non-violent, rtn-lomw-kbjwostjyta restraints Description: Less restrictive alternative interventions will [...] of medical procedures, or protection of medical information officer access. Outcome: Not Progressing Patient in bilateral [...] restraint flowsheet for further documentation. Problem: Non-violent, uol-bbga-nskwxyadobs restraints Description: Less restrictive alternative interventions will [...] of medical procedures, or protection of medical information officer access. Outcome: Progressing * Plan of Care [...] 12/05/2024 8:01 AM EDT Hospital Encounter [facility] ENDOSCOPY [address] [place] [id number] Chris Orosco MD [address] [place] [phone] 12/05/2024 8:01 AM EDT - 12/05/2024 8:[address] [facility] ENDOSCOPY [address] [place] [phone] Chris Orosco MD [address] [place] [phone] EGD Scheduled Orders Name Type Priority Associated [...] Routine 10/31/2024 11:59 AM EDT US DUPLEX [id number] COMPLETE Routine 10/31/2024 10:19 AM EDT US [...] Routine 10/28/2024 5:31 PM EDT US DUPLEX [id number] COMPLETE STAT 10/28/2024 4:23 PM EDT US [...] Routine 10/27/2024 10:00 AM EDT US DUPLEX [id number] COMPLETE STAT 10/27/2024 9:51 AM EDT US [...] EDT Acute kidney injury superimposed on CKD ([facility]) [facility] RENAL ALTRNSPLJ IMPLTJ GRF W/COURT SPECIALIST NEPHRECTOMY 10/27/2024 2:32 AM EDT Acute kidney injury superimposed on CKD ([facility]) 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 smith [...] - 100 mg/dL 11/02/2024 5:45 PM EDT [facility] Blood 11/02/2024 5:44 PM EDT 11/02/2024 5:45 PM EDT us Harvey Domínguez III, MD POINT OF CARE TEST ORDERABLES Final Result [facility] [address] [facility]. [address] * (ABNORMAL) POC Glucose Monitoring Device (11/02/2024 3:34 PM EDT) POC Glucose Monitoring Device 208(H) 70 - 100 mg/dL 11/02/2024 3:35 PM EDT [facility] Blood 11/02/2024 3:34 PM EDT 11/02/2024 3:35 PM EDT us Harvey Domínguez III, MD POINT OF CARE TEST ORDERABLES Final Result Performing Organization Address City/[facility]/ZIP Co de Phone Number [facility] [address] [facility]. [address] * (ABNORMAL) POC Glucose Monitoring Device (11/02/2024 1:18 PM EDT) POC Glucose Monitoring Device 225(H) 70 - 100 mg/dL 11/02/2024 1:19 PM EDT [facility] Blood 11/02/2024 1:18 PM EDT 11/02/2024 1:19 PM EDT us Harvey Domínguez III, MD POINT OF CARE TEST ORDERABLES Final Result [facility] [address] [place] * (ABNORMAL) POC Glucose Monitoring Device (11/02/2024 8:59 AM EDT) [facility] POC Glucose Monitoring Device 129(H) 70 - 100 mg/dL 11/02/2024 9:00 AM EDT [facility] Blood 11/02/2024 8:59 AM EDT 11/02/2024 9:00 AM EDT Harvey Domínguez III, MD POINT OF CARE TEST ORDERABLES Final Result Performing Organization Address [facility] Co de Phone Number [facility] [address] * Tacrolimus level (11/02/2024 5:53 AM EDT) [facility] Tacrolimus (LC-MS) 7.4 3.0 - 15.0 ng/mL 11/02/2024 2:23 PM EDT [facility] Comment:Performed via liquid chromatography tandem mass spectrometry. Detection limit: 1 ng/mL. Individual target concentrations may vary due to target organ and time after transplant. This test has been developed and its performance characteristics determined by [facility] which is certified under the Clinical [...] ORDERABLES Denisse l Result Performing Organization Address City/[facility]/ZIP Co de Phone Number [facility] [address] [facility]. [address] * (ABNORMAL) Renal Function Panel w/EGFR (11/02/2024 5:53 AM EDT) [facility] Sodium 140 133 - 146 mmol/L 11/02/2024 6:47 AM EDT [facility] Potassium 3.3(L) 3.5 - 5.3 mmol/L 11/02/2024 6:47 AM EDT [facility] Chloride 107 98 - 110 mmol/L 11/02/2024 6:47 AM EDT [facility] CO2 25 21 - 33 mmol/L 11/02/2024 6:47 AM EDT [facility] Anion Gap 8 3 - 16 mmol/L 11/02/2024 6:47 AM EDT [facility] BUN 31(H) 7 - 25 mg/dL 11/02/2024 6:47 AM EDT [facility] Creatinine 1.08 0.60 - 1.30 mg/dL 11/02/2024 6:47 AM T [facility] Glucose 150(H) 70 - 100 mg/dL 11/02/2024 6:47 AM T [facility] Calcium 7.8(L) 8.6 - 10.3 mg/dL 11/02/2024 6:47 AM EDT [facility] Phosphorus 2.0(L) 2.1 - 4.7 mg/dL 11/02/2024 6:47 AM EDT [facility] Albumin 3.2(L) 3.5 - 5.7 g/dL 11/02/2024 6:47 AM EDT [facility] Osmolality, Calculated 299 278 - 305 mOsm/kg 11/02/2024 6:47 AM [facility] EGFR 88 11/02/2024 6:47 AM [facility] Comment:As of 2021, the estimated [...] AM EDT 11/02/2024 6:12 AM EDT Beata [place]berrybrook Horner [employer]SULT[employer] LAB BLOOD ORDERABLES Denisse l Result [facility] [address] * (ABNORMAL) Magnesium (11/02/2024 5:53 AM EDT) Magnesium 1.3(L) 1.5 - 2.5 mg/dL 11/02/2024 6:47 AM EDT [facility] Plasma 11/02/2024 5:53 AM EDT 11/02/2024 6:12 AM EDT Beata [place]berrybrook Horner [facility] BLOOD ORDERABLES Denisse l Result Performing Organization Address [facility] Co de Phone Number [facility] [address] * (ABNORMAL) Hepatic Function Panel (11/02/2024 5:53 AM EDT) Total Bilirubin 1.6(H) 0.0 - 1.5 mg/dL 11/02/2024 6:47 AM EDT [facility] Bilirubin, Direct 0.81(H) 0.00 - 0.40 mg/dL 11/02/2024 6:47 AM EDT [facility] AST 30 13 - 39 U/L 11/02/2024 6:47 AM EDT [facility] ALT 66(H) 7 - 52 U/L 11/02/2024 6:47 AM EDT [facility] Alkaline Phosphatase 126(H) 36 - 125 U/L 11/02/2024 6:47 AM EDT [facility] Total Protein 4.6(L) 6.4 - 8.9 g/dL 11/02/2024 6:47 AM EDT [facility] Albumin 3.2(L) 3.5 - 5.7 g/dL 11/02/2024 6:47 AM EDT [facility] Bilirubin, Indirect 0.79 0.00 - 1.10 mg/dL 11/02/2024 6:47 AM EDT [facility] Plasma 11/02/2024 5:53 AM EDT 11/02/2024 6:12 AM EDT Beata Horner [facility] BLOOD ORDERABLES Deinsse l Result [facility] [address] [place], [place] [address] * (ABNORMAL) CBC (11/02/2024 5:53 AM EDT) WBC 5.8 3.8 - 10.8 10E3/uL 11/02/2024 6:21 AM EDT [facility] RBC 3.12(L) 4.20 - 5.80 10E6/uL 11/02/2024 6:21 AM EDT [facility] Hemoglobin 9.2(L) 13.2 - 17.1 g/dL 11/02/2024 6:21 AM EDT [facility] Hematocrit 27.5(L) 38.5 - 50.0 % 11/02/2024 6:21 AM EDT [facility] MCV 87.9 80.0 - 100.0 fL 11/02/2024 6:21 AM EDT [facility] MCH 29.5 27.0 - 33.0 pg 11/02/2024 6:21 AM EDT [facility] MCHC 33.5 32.0 - 36.0 g/dL 11/02/2024 6:21 AM EDT [facility] RDW 17.5(H) 11.0 - 15.0 % 11/02/2024 6:21 AM EDT [facility] Platelets 61(L) 140 - 400 10E3/uL 11/02/2024 6:21 AM EDT [facility] MPV 7.9 7.5 - 11.5 fL 11/02/2024 6:21 AM EDT [facility] Whole Blood 11/02/2024 5:53 AM EDT 11/02/2024 6:12 AM EDT Beata Horner [facility] BLOOD ORDERABLES Denisse l Result [facility] [address] [facility]. [address] * (ABNORMAL) POC Glucose Monitoring Device (11/01/2024 9:26 PM EDT) POC Glucose Monitoring Device 199(H) 70 - 100 mg/dL 11/01/2024 9:27 PM EDT [facility] Blood 11/01/2024 9:26 PM EDT 11/01/2024 9:27 PM EDT Harvey Domínguez III, MD POINT OF CARE TEST ORDERABLES Final Result [facility] [address] [facility]. [address] * (ABNORMAL) POC Glucose Monitoring Device (11/01/2024 5:04 PM EDT) POC Glucose Monitoring Device 255(H) 70 - 100 mg/dL 11/01/2024 5:05 PM EDT [facility] Blood 11/01/2024 5:04 PM EDT 11/01/2024 5:05 PM EDT Harvey Domínguez III, MD POINT OF CARE TEST ORDERABLES Final Result [facility] [address] [facility]. [address] * (ABNORMAL) Renal Function Panel w/EGFR, STAT (11/01/2024 2:17 PM EDT) Sodium 139 133 - 146 mmol/L 11/01/2024 3:10 PM EDT [facility] Potassium 3.3(L) 3.5 - 5.3 mmol/L 11/01/2024 3:10 PM EDT [facility] Chloride 107 98 - 110 mmol/L 11/01/2024 3:10 PM EDT [facility] CO2 24 21 - 33 mmol/L 11/01/2024 3:10 PM EDT [facility] Anion Gap 8 3 - 16 mmol/L 11/01/2024 3:10 PM EDT [facility] BUN 35(H) 7 - 25 mg/dL 11/01/2024 3:10 PM EDT [facility] Creatinine 1.22 0.60 - 1.30 mg/dL 11/01/2024 3:10 PM EDT [facility] Glucose 203(H) 70 - 100 mg/dL 11/01/2024 3:10 PM EDT [facility] Calcium 8.3(L) 8.6 - 10.3 mg/dL 11/01/2024 3:10 PM EDT [facility] Phosphorus 2.2 2.1 - 4.7 mg/dL 11/01/2024 3:10 PM EDT [facility] Albumin 3.4(L) 3.5 - 5.7 g/dL 11/01/2024 3:10 PM EDT [facility] Osmolality, Calculated 302 278 - 305 mOsm/kg 11/01/2024 3:10 PM EDT [facility] EGFR 76 11/01/2024 3:10 PM EDT [facility] Comment:As of 2021, the [...] 2:17 PM EDT 11/01/2024 2:42 PM EDT Carlos Marks MD LAB BLOOD ORDERABLES Final Result [facility] [address] [place] [address], [facility] * X-ray Portable Abdomen AP [...] - 100 mg/dL 11/01/2024 12:23 PM EDT [facility] Blood 11/01/2024 12:2 2 PM EDT 11/01/2024 12:23 PM EDT Harvey Domínguez III, MD POINT OF CARE TEST ORDERABLES Final Result Performing Organization Address [facility] Co de Phone Number [facility] [address] [place] [address]. [address] * (ABNORMAL) POC Glucose Monitoring Device (11/01/2024 8:50 AM EDT) POC Glucose Monitoring Device 175(H) 70 - 100 mg/dL 11/01/2024 8:51 AM EDT [facility] Blood 11/01/2024 8:50 AM EDT 11/01/2024 8:51 AM EDT Harvey Domínguez III, MD POINT OF CARE TEST ORDERABLES Final Result Performing Organization Address [facility] de Phone Number [address] * Tacrolimus level (11/01/2024 6:01 AM EDT) Tacrolimus (LC-MS) 7.5 3.0 - 15.0 ng/mL 11/01/2024 12:14 PM EDT [facility] Comment:Performed via liquid chromatography tandem mass spectrometry. Detection limit: 1 ng/mL. Individual target concentrations may vary due to target organ and time after transplant. This test has been developed and its performance characteristics determined by [facility] which is certified under the Clinical [...] AM EDT 11/01/2024 6:19 AM EDT us Hillary Fernandes PharmD LAB BLOOD ORDERABLES Denisse tori Result [facility] [address] [place] [address], [facility] * (ABNORMAL) Renal Function Panel w/EGFR (11/01/2024 6:01 AM EDT) Sodium 139 133 - 146 mmol/L 11/01/2024 6:57 AM EDT [facility] Potassium 3.3(L) 3.5 - 5.3 mmol/L 11/01/2024 6:57 AM EDT [facility] Chloride 108 98 - 110 mmol/L 11/01/2024 6:57 AM EDT [facility] CO2 22 21 - 33 mmol/L 11/01/2024 6:57 AM EDT [facility] Anion Gap 9 3 - 16 mmol/L 11/01/2024 6:57 AM EDT [facility] BUN 37(H) 7 - 25 mg/dL 11/01/2024 6:57 AM EDT [facility] Creatinine 1.30 0.60 - 1.30 mg/dL 11/01/2024 6:57 AM EDT [facility] Glucose 163(H) 70 - 100 mg/dL 11/01/2024 6:57 AM EDT [facility] Calcium 8.2(L) 8.6 - 10.3 mg/dL 11/01/2024 6:57 AM EDT [facility] Phosphorus 2.9 2.1 - 4.7 mg/dL 11/01/2024 6:57 AM EDT [facility] Albumin 3.1(L) 3.5 - 5.7 g/dL 11/01/2024 6:57 AM EDT [facility] Osmolality, Calculated 300 278 - 305 mOsm/kg 11/01/2024 6:57 AM EDT [facility] EGFR 71 11/01/2024 6:57 AM EDT [facility] Comment:As of 2021, the [...] AM EDT 11/01/2024 6:20 AM EDT Beata Dada Horner [facility] BLOOD ORDERABLES Denisse l Result Performing Organization Address [facility]/ZIP Co de Phone Number [facility] [address] [place] [address] * Magnesium (11/01/2024 6:01 AM EDT) Magnesium 1.5 1.5 - 2.5 mg/dL 11/01/2024 6:57 AM EDT [facility] Plasma 11/01/2024 6:01 AM EDT 11/01/2024 6:20 AM EDT [employer] Horner [facility] BLOOD ORDERABLES Denisse l Result Performing Organization Address [facility]/ZIP Co de Phone Number [facility] [address] * (ABNORMAL) Hepatic Function Panel (11/01/2024 6:01 AM EDT) Total Bilirubin 2.0(H) 0.0 - 1.5 mg/dL 11/01/2024 6:57 AM EDT [facility] Bilirubin, Direct 1.06(H) 0.00 - 0.40 mg/dL 11/01/2024 6:57 AM EDT [facility] AST 21 13 - 39 U/L 11/01/2024 6:57 AM EDT [facility] ALT 62(H) 7 - 52 U/L 11/01/2024 6:57 AM EDT [facility] Alkaline Phosphatase 114 36 - 125 U/L 11/01/2024 6:57 AM EDT [facility] Total Protein 4.6(L) 6.4 - 8.9 g/dL 11/01/2024 6:57 AM EDT [facility] Albumin 3.1(L) 3.5 - 5.7 g/dL 11/01/2024 6:57 AM EDT [facility] Bilirubin, Indirect 0.94 0.00 - 1.10 mg/dL 11/01/2024 6:57 AM EDT [facility] Plasma 11/01/2024 6:01 AM EDT 11/01/2024 6:20 AM EDT Beata Horner [facility] LAB BLOOD ORDERABLES Denisse l Result [facility] [address] * (ABNORMAL) CBC (11/01/2024 6:01 AM EDT) WBC 5.9 3.8 - 10.8 10E3/uL 11/01/2024 6:29 AM EDT [facility] RBC 3.19(L) 4.20 - 5.80 10E6/uL 11/01/2024 6:29 AM EDT [facility] Hemoglobin 9.5(L) 13.2 - 17.1 g/dL 11/01/2024 6:29 AM EDT [facility] Hematocrit 27.8(L) 38.5 - 50.0 % 11/01/2024 6:29 AM EDT [facility] MCV 87.1 80.0 - 100.0 fL 11/01/2024 6:29 AM EDT [facility] MCH 29.9 27.0 - 33.0 pg 11/01/2024 6:29 AM EDT [facility] MCHC 34.3 32.0 - 36.0 g/dL 11/01/2024 6:29 AM EDT [facility] RDW 17.4(H) 11.0 - 15.0 % 11/01/2024 6:29 AM EDT [facility] Platelets 56(L) 140 - 400 10E3/uL 11/01/2024 6:29 AM EDT [facility] MPV 8.3 7.5 - 11.5 fL 11/01/2024 6:29 AM EDT [facility] Whole Blood 11/01/2024 6:01 AM EDT 11/01/2024 6:19 AM EDT Beata Horner [facility] BLOOD ORDERABLES Denisse l Result Performing Organization Address City/[facility]/ZIP Co de Phone Number [facility] [address] [facility]. [address] * (ABNORMAL) POC Glucose Monitoring Device (10/31/2024 9:15 PM EDT) POC Glucose Monitoring Device 171(H) 70 - 100 mg/dL 10/31/2024 9:15 PM EDT [facility] Blood 10/31/2024 9:15 PM EDT 10/31/2024 9:15 PM EDT us Harvey Domínguez III, MD POINT OF CARE TEST ORDERABLES Final Result Performing Organization Address City/[facility]/ZIP Co de Phone Number [facility] [address] [facility]. [address] * (ABNORMAL) POC Glucose Monitoring Device (10/31/2024 5:56 PM EDT) POC Glucose Monitoring Device 179(H) 70 - 100 mg/dL 10/31/2024 5:57 PM EDT [facility] Blood 10/31/2024 5:56 PM EDT 10/31/2024 5:57 PM EDT Harvey Domínguez III, MD POINT OF CARE TEST ORDERABLES Final Result [facility] [address] [place] [address], [facility] * CT Abdomen and Pelvis WO IV [...] Adrenal gland: No focal nodule seen. Kidneys: [place] kidneys noted with nonobstructing calcifications on the right. Findings of postsurgical changes in the left sycuan kidney. Mild right hydronephrosis without an obstructive [...] Adrenal gland: No focal nodule seen. Kidneys: [place] kidneys noted with nonobstructing calcifications on theright. Findings of postsurgical changes in the left sycuan kidney. Mildright hydronephrosis without an obstructive course [...] QT: 400 ms QTc: 456 ms P Shawnee: 49 degrees R [place]nee: 3 degrees T [place]nee: 14 degrees Diagnosis Line: NORMAL SINUS RHYTHM ^ NORMAL ECG ^ ^ Confirmed by MD JEANETTE, TORI ([id number]) on 11/02/2024 6:56:52 AM Priti Geiger [employer]SULTANT ECG ORDERABLES Final Result [facility] * (ABNORMAL) Urinalysis w/Rfl to Microscopic (10/31/2024 1:18 PM EDT) Color, UA Straw Yellow,Straw 10/31/2024 1:46 PM EDT [facility] Clarity, UA Clear Clear 10/31/2024 1:46 PM EDT [facility] Specific [place], UA 1.013 1.005 - 1.035 10/31/2024 1:46 PM EDT [facility] pH, UA 6.5 5.0 - 8.0 10/31/2024 1:46 PM EDT [facility] Protein, UA Negative Negative mg/dL 10/31/2024 1:46 PM EDT [facility] Glucose, UA Negative Negative mg/dL 10/31/2024 1:46 PM EDT [facility] Ketones, UA Negative Negative mg/dL 10/31/2024 1:46 PM EDT [facility] Bilirubin, UA Negative Negative 10/31/2024 1:46 PM EDT [facility] Blood, UA Large(A) Negative 10/31/2024 1:46 PM EDT [facility] Nitrite, UA Negative Negative 10/31/2024 1:46 PM EDT [facility] Urobilinogen, UA <2.0 0.2 - 1.9 mg/dL 10/31/2024 1:46 PM EDT [facility] Leukocyte Esterase, UA Negative Negative 10/31/2024 1:46 PM EDT [facility] RBC, UA >100(H) 0 - 3 /HPF 10/31/2024 1:46 PM EDT [facility] WBC, UA 3 0 - 5 /HPF 10/31/2024 1:46 PM EDT [facility] Hyaline Casts, UA 3(H) 0 - 2 /LPF 10/31/2024 1:46 PM EDT [facility] Urine 10/31/2024 1:18 PM EDT 10/31/2024 1:32 PM EDT Priti Geiger [facility] URINE ORDERABLES Final Result [facility] [address] [facility] * (ABNORMAL) Post Kidney Transplant Urine Culture (10/31/2024 1:18 PM EDT) Culture Result Enterococcus faecium, Vancomycin Resistant(A) [facility] Comment: 1,000- <10,000 cfu/mL [...] Vancomycin SARMAD >=32: Resistant Comment:See Results Priti Gegier CNP MICROBIOLOGY - GENERAL ORDERA BLES Final Result Performing Organization Address City/[facility]/ZIP Co de Phone Number [facility] [address] * (ABNORMAL) POC Glucose Monitoring Device (10/31/2024 11:59 AM EDT) POC Glucose Monitoring Device 130(H) 70 - 100 mg/dL 10/31/2024 12:21 PM EDT [facility] Blood 10/31/2024 11:5 9 AM EDT 10/31/2024 12:21 PM EDT us Harvey Domínguez III, MD POINT OF CARE TEST ORDERABLES Final Result [facility] [address] [place] [address], [facility] * US Abdomen Limited (10/31/2024 10:19 AM [...] EXAM: US ABDOMEN LIMITED EXAM: US DUPLEX [id number] COMPLETE INDICATION: Post-op liver transplant COMPARISON: None [...] visualized secondary to poor acoustic windows. The sycuan right kidney measures 11.6 cm in length. [...] EXAM: US ABDOMEN LIMITED EXAM: US DUPLEX [id number] COMPLETE INDICATION: Post-op liver transplant COMPARISON: None [...] well visualized secondary to poor acousticwindows. The sycuan right kidney measures 11.6 cm in length. [...] at 10/31/2024 10:35 AM EDT Beata Horner [facility] US ORDERABLES Final R esult * US Renal Transplant (10/31/2024 10:19 AM EDT) Anatomical Region Laterality Modality Abdomen, Pelvis Ultrasound 10/31/2024 9:2 1 AM EDT Impressions 10/31/2024 10:29 AM EDT [...] 10/31/2024 10:29 AM EDT us Beata Horner [employer]SULT[employer] IM US ORDERABLES Final R esult * US Duplex Tdb-Odt-Bfaazmy Comp (10/31/2024 10:19 AM EDT) Anatomical Region [...] EXAM: US ABDOMEN LIMITED EXAM: US DUPLEX [id number] COMPLETE INDICATION: Post-op liver transplant COMPARISON: None [...] visualized secondary to poor acoustic windows. The sycuan right kidney measures 11.6 cm in length. [...] EXAM: US ABDOMEN LIMITED EXAM: US DUPLEX [id number] COMPLETE INDICATION: Post-op liver transplant COMPARISON: None [...] well visualized secondary to poor acousticwindows. The sycuan right kidney measures 11.6 cm in length. [...] 10/31/2024 10:35 AM EDT us Beata Horner [facility] IM US ORDERABLES Final R esult * ECG 12-lead (MUSE) (10/31/2024 8:57 AM EDT) 10/31/2024 8:57 AM EDT Narrative MUSE - 11/01/2024 9:21 AM EDT Ventricular Rate: 83 BPM Atrial Rate: 83 BPM P-R Interval: 168 ms QRS Duration: 102 ms QT: 392 ms QTc: 460 ms P [place]: 64 degrees R [place]: -18 degrees T [place]: 7 degrees Diagnosis Line: NORMAL SINUS RHYTHM ^ NORMAL ECG ^ ^ Confirmed by MD JOE, OTIS ([id number]) on 11/01/2024 9:21:13 AM Result [facility] Priti Geiger MARKETING DAT[employer]ASE CONSULTANT ECG ORDERABLES Final Result Performing Organization Address [facility] Co de Phone Number MUSE * (ABNORMAL) POC Glucose Monitoring Device (10/31/2024 8:44 AM EDT) POC Glucose Monitoring Device 145(H) 70 - 100 mg/dL 10/31/2024 8:45 AM EDT [facility] Blood 10/31/2024 8:44 AM EDT 10/31/2024 8:44 AM EDT Result [facility] Harvey Domínguez III, MD POINT OF CARE TEST ORDERABLES Final Result Performing Organization Address [facility] de Phone Number [facility] [address] * Tacrolimus level (10/31/2024 6:40 AM EDT) Tacrolimus (LC-MS) 8.4 3.0 - 15.0 ng/mL 10/31/2024 10:05 AM EDT [facility] Comment:Performed via liquid chromatography tandem mass spectrometry. Detection limit: 1 ng/mL. Individual target concentrations may vary due to target organ and time after transplant. This test has been developed and its performance characteristics determined by [facility] which is certified under the Clinical [...] 6:40 AM EDT 10/31/2024 7:43 AM EDT Result [facility] Hillary Fernandes PharmD LAB BLOOD ORDERABLES Denisse l Result Performing Organization Address [facility]/ZIP Co de Phone Number [facility] [address] [place] [address], [facility] * (ABNORMAL) Renal Function Panel w/EGFR (10/31/2024 6:40 AM EDT) Sodium 141 133 - 146 mmol/L 10/31/2024 8:09 AM EDT [facility] Potassium 3.5 3.5 - 5.3 mmol/L 10/31/2024 8:09 AM EDT [facility] Chloride 111(H) 98 - 110 mmol/L 10/31/2024 8:09 AM EDT [facility] CO2 20(L) 21 - 33 mmol/L 10/31/2024 8:09 AM EDT [facility] Anion Gap 10 3 - 16 mmol/L 10/31/2024 8:09 AM EDT [facility] BUN 54(H) 7 - 25 mg/dL 10/31/2024 8:09 AM EDT [facility] Creatinine 1.75(H) 0.60 - 1.30 mg/dL 10/31/2024 8:09 AM EDT [facility] Glucose 136(H) 70 - 100 mg/dL 10/31/2024 8:09 AM EDT [facility] Calcium 8.7 8.6 - 10.3 mg/dL 10/31/2024 8:09 AM EDT [facility] Phosphorus 4.1 2.1 - 4.7 mg/dL 10/31/2024 8:09 AM EDT [facility] Albumin 3.2(L) 3.5 - 5.7 g/dL 10/31/2024 8:09 AM EDT [facility] Osmolality, Calculated 309(H) 278 - 305 mOsm/kg 10/31/2024 8:09 AM EDT [facility] EGFR 50 10/31/2024 8:09 AM EDT [facility] Comment:As of 2021, the [...] 6:40 AM EDT 10/31/2024 7:35 AM EDT [employer] [facility] BLOOD ORDERABLES Denisse l Result Performing Organization Address City/[facility]/ZIP Co de Phone Number [facility] [address] [facility]. [address] * Magnesium (10/31/2024 6:40 AM EDT) Magnesium 1.8 1.5 - 2.5 mg/dL 10/31/2024 8:09 AM EDT [facility] Plasma 10/31/2024 6:40 AM EDT 10/31/2024 7:35 AM EDT [facility] BLOOD ORDERABLES Denisse l Result Performing Organization Address [facility]/ZIP Co de Phone Number [facility] [address] [place] [address]. [address] * (ABNORMAL) Hepatic Function Panel (10/31/2024 6:40 AM EDT) Total Bilirubin 2.7(H) 0.0 - 1.5 mg/dL 10/31/2024 8:09 AM EDT [facility] Bilirubin, Direct 1.57(H) 0.00 - 0.40 mg/dL 10/31/2024 8:09 AM EDT [facility] AST 26 13 - 39 U/L 10/31/2024 8:09 AM EDT [facility] ALT 68(H) 7 - 52 U/L 10/31/2024 8:09 AM EDT [facility] Alkaline Phosphatase 112 36 - 125 U/L 10/31/2024 8:09 AM EDT [facility] Total Protein 4.7(L) 6.4 - 8.9 g/dL 10/31/2024 8:09 AM EDT [facility] Albumin 3.2(L) 3.5 - 5.7 g/dL 10/31/2024 8:09 AM EDT [facility] Bilirubin, Indirect 1.13(H) 0.00 - 1.10 mg/dL 10/31/2024 8:09 AM EDT [facility] Plasma 10/31/2024 6:40 AM EDT 10/31/2024 7:35 AM EDT Beata Horner [facility] BLOOD ORDERABLES Denisse valle Result [facility] [address] [place] [address], [facility] * (ABNORMAL) CBC (10/31/2024 6:40 AM EDT) WBC 6.0 3.8 - 10.8 10E3/uL 10/31/2024 8:05 AM EDT [facility] RBC 3.14(L) 4.20 - 5.80 10E6/uL 10/31/2024 8:05 AM EDT [facility] Hemoglobin 9.6(L) 13.2 - 17.1 g/dL 10/31/2024 8:05 AM EDT [facility] Hematocrit 27.5(L) 38.5 - 50.0 % 10/31/2024 8:05 AM EDT [facility] MCV 87.6 80.0 - 100.0 fL 10/31/2024 8:05 AM EDT [facility] MCH 30.7 27.0 - 33.0 pg 10/31/2024 8:05 AM EDT [facility] MCHC 35.0 32.0 - 36.0 g/dL 10/31/2024 8:05 AM EDT [facility] RDW 17.9(H) 11.0 - 15.0 % 10/31/2024 8:05 AM EDT [facility] Platelets 44(L) 140 - 400 10E3/uL 10/31/2024 8:05 AM EDT [facility] Comment: CNV Specimen checked for clots. None detected. MPV 8.9 7.5 - 11.5 fL 10/31/2024 8:05 AM EDT [facility] Whole Blood 10/31/2024 6:40 AM EDT 10/31/2024 7:34 AM EDT Beata Horner [facility] BLOOD ORDERABLES Denisse l Result [facility] [address] [facility]. [address] * (ABNORMAL) POC Glucose Monitoring Device (10/30/2024 9:01 PM EDT) POC Glucose Monitoring Device 144(H) 70 - 100 mg/dL 10/30/2024 9:02 PM EDT [facility] Blood 10/30/2024 9:01 PM EDT 10/30/2024 9:01 PM EDT Harvey Domínguez III, MD POINT OF CARE TEST ORDERABLES Final Result Performing Organization Address [facility] Co de Phone Number [facility] [address] [facility]. [address] * (ABNORMAL) POC Glucose Monitoring Device (10/30/2024 5:37 PM EDT) POC Glucose Monitoring Device 124(H) 70 - 100 mg/dL 10/30/2024 5:47 PM EDT [facility] Blood 10/30/2024 5:37 PM EDT 10/30/2024 5:47 PM EDT Harvey Domínguez III, MD POINT OF CARE TEST ORDERABLES Final Result Performing Organization Address City/[facility]/ZIP Co de Phone Number [facility] [address] [facility]. [address] * (ABNORMAL) POC Glucose Monitoring Device (10/30/2024 7:26 AM EDT) [facility] POC Glucose Monitoring Device 150(H) 70 - 100 mg/dL 10/30/2024 7:27 AM EDT [facility] Blood 10/30/2024 7:26 AM EDT 10/30/2024 7:27 AM EDT Harvey Domínguez III, MD POINT OF CARE TEST ORDERABLES Final Result Performing Organization Address [facility] Co de Phone Number [facility] [address] * Tacrolimus level (10/30/2024 7:13 AM EDT) [facility] Tacrolimus (LC-MS) 9.5 3.0 - 15.0 ng/mL 10/30/2024 2:53 PM EDT [facility] Comment:Performed via liquid chromatography tandem mass spectrometry. Detection limit: 1 ng/mL. Individual target concentrations may vary due to target organ and time after transplant. This test has been developed and its performance characteristics determined by [facility] which is certified under the Clinical [...] EDT 10/30/2024 7:26 AM EDT Priti Geiger [facility] BLOOD ORDERABLES Final Re sult Performing Organization Address [facility] Co de Phone Number [facility] [address] [facility]. [address] * ECG 12-lead (MUSE) (10/30/2024 6:51 AM EDT) 10/30/2024 6:51 AM EDT Narrative MUSE - 11/01/2024 9:21 AM EDT Ventricular Rate: 92 BPM Atrial Rate: 92 BPM P-R Interval: 174 ms QRS Duration: 96 ms QT: 376 ms QTc: 464 ms P Shawnee: 54 degrees R Shawnee: -24 degrees T Shawnee: 11 degrees Diagnosis Line: NORMAL SINUS RHYTHM ^ NORMAL ECG ^ ^ Confirmed by MD JOE, OTIS ([id number]) on 11/01/2024 9:21:09 AM Priti Geiger [employer] ECG ORDERABLES Final Result MUSE * (ABNORMAL) Renal Function Panel w/EGFR (10/30/2024 5:41 AM EDT) Sodium 140 133 - 146 mmol/L 10/30/2024 6:18 AM EDT [facility] Potassium 3.8 3.5 - 5.3 mmol/L 10/30/2024 6:18 AM EDT [facility] Chloride 111(H) 98 - 110 mmol/L 10/30/2024 6:18 AM EDT [facility] CO2 17(L) 21 - 33 mmol/L 10/30/2024 6:18 AM EDT [facility] Anion Gap 12 3 - 16 mmol/L 10/30/2024 6:18 AM EDT [facility] BUN 62(H) 7 - 25 mg/dL 10/30/2024 6:18 AM EDT [facility] Creatinine 1.96(H) 0.60 - 1.30 mg/dL 10/30/2024 6:18 AM EDT [facility] Glucose 116(H) 70 - 100 mg/dL 10/30/2024 6:18 AM EDT [facility] Calcium 9.0 8.6 - 10.3 mg/dL 10/30/2024 6:18 AM EDT [facility] Phosphorus 4.6 2.1 - 4.7 mg/dL 10/30/2024 6:18 AM EDT [facility] Albumin 3.2(L) 3.5 - 5.7 g/dL 10/30/2024 6:18 AM EDT [facility] Osmolality, Calculated 309(H) 278 - 305 mOsm/kg 10/30/2024 6:18 AM EDT [facility] EGFR 43 10/30/2024 6:18 AM EDT [facility] Comment:As of 2021, the [...] 5:41 AM EDT 10/30/2024 5:47 AM EDT [facility] BLOOD ORDERABLES Denisse l Result Performing Organization Address [facility]/ZIP Co de Phone Number [facility] [address] [place] [address] * Magnesium (10/30/2024 5:41 AM EDT) Pathologist [facility] Magnesium 2.2 1.5 - 2.5 mg/dL 10/30/2024 6:18 AM EDT [facility] Plasma 10/30/2024 5:41 AM EDT 10/30/2024 5:47 AM EDT [facility] BLOOD ORDERABLES Denisse l Result [facility] [address] [place] [address] * (ABNORMAL) Hepatic Function Panel (10/30/2024 5:41 AM EDT) Total Bilirubin 3.6(H) 0.0 - 1.5 mg/dL 10/30/2024 6:18 AM EDT [facility] Bilirubin, Direct 1.95(H) 0.00 - 0.40 mg/dL 10/30/2024 6:18 AM EDT [facility] AST 33 13 - 39 U/L 10/30/2024 6:18 AM EDT [facility] ALT 71(H) 7 - 52 U/L 10/30/2024 6:18 AM EDT [facility] Alkaline Phosphatase 80 36 - 125 U/L 10/30/2024 6:18 AM EDT [facility] Total Protein 4.8(L) 6.4 - 8.9 g/dL 10/30/2024 6:18 AM EDT [facility] Albumin 3.2(L) 3.5 - 5.7 g/dL 10/30/2024 6:18 AM EDT [facility] Bilirubin, Indirect 1.65(H) 0.00 - 1.10 mg/dL 10/30/2024 6:18 AM EDT [facility] Plasma 10/30/2024 5:41 AM EDT 10/30/2024 5:47 AM EDT Beata Horner [facility] BLOOD ORDERABLES Denisse l Result [facility] [address] * (ABNORMAL) CBC (10/30/2024 5:41 AM EDT) WBC 8.1 3.8 - 10.8 10E3/uL 10/30/2024 8:06 AM EDT [facility] RBC 3.29(L) 4.20 - 5.80 10E6/uL 10/30/2024 8:06 AM EDT [facility] Hemoglobin 10.1(L) 13.2 - 17.1 g/dL 10/30/2024 8:06 AM EDT [facility] Hematocrit 28.8(L) 38.5 - 50.0 % 10/30/2024 8:06 AM EDT [facility] MCV 87.6 80.0 - 100.0 fL 10/30/2024 8:06 AM EDT [facility] MCH 30.6 27.0 - 33.0 pg 10/30/2024 8:06 AM EDT [facility] MCHC 34.9 32.0 - 36.0 g/dL 10/30/2024 8:06 AM EDT [facility] RDW 18.1(H) 11.0 - 15.0 % 10/30/2024 8:06 AM EDT [facility] Platelets 44(L) 140 - 400 10E3/uL 10/30/2024 8:06 AM EDT [facility] Comment: CNV Specimen checked for clots. None detected. MPV 8.3 7.5 - 11.5 fL 10/30/2024 8:06 AM EDT [facility] Whole Blood 10/30/2024 5:41 AM EDT 10/30/2024 5:50 AM EDT Beata Horner [facility] BLOOD ORDERABLES Denisse l Result Performing Organization Address City/[facility]/ZIP Co de Phone Number [facility] [address] * (ABNORMAL) POC Glucose Monitoring Device (10/29/2024 10:18 PM EDT) POC Glucose Monitoring Device 140(H) 70 - 100 mg/dL 10/29/2024 10:18 PM EDT [facility] Blood 10/29/2024 10:1 8 PM EDT 10/29/2024 10:18 PM EDT Harvey Domínguez III, MD POINT OF CARE TEST ORDERABLES Final Result [facility] [address] * (ABNORMAL) POC Glucose Monitoring Device (10/29/2024 6:42 PM EDT) POC Glucose Monitoring Device 152(H) 70 - 100 mg/dL 10/29/2024 6:43 PM EDT [facility] Blood 10/29/2024 6:42 PM EDT 10/29/2024 6:43 PM EDT us Harvey Domínguez III, MD POINT OF CARE TEST ORDERABLES Final Result Performing Organization Address [facility] Co de Phone Number [facility] [address] * (ABNORMAL) POC Glucose Monitoring Device (10/29/2024 11:35 AM EDT) Pathologist [facility] POC Glucose Monitoring Device 130(H) 70 - 100 mg/dL 10/29/2024 11:36 AM EDT [facility] Blood 10/29/2024 11:3 5 AM EDT 10/29/2024 11:36 AM EDT Harvey Domínguez III, MD POINT OF CARE TEST ORDERABLES Final Result Performing Organization Address [facility] Co de Phone Number [facility] [address] [facility]. [address] * ECG 12 lead (MUSE) (10/29/2024 9:34 AM EDT) 10/29/2024 9:34 AM EDT Narrative MUSE - 10/29/2024 10:34 PM EDT Ventricular Rate: 97 BPM Atrial Rate: 97 BPM P-R Interval: 186 ms QRS Duration: 104 ms QT: 382 ms QTc: 485 ms P Shawnee: 54 degrees R Shawnee: -21 degrees T Shawnee: 1 degrees Diagnosis Line: NORMAL SINUS RHYTHM ^ NORMAL ECG ^ Confirmed by JORGE MACIAS ([id number]) on 10/29/2024 10:34:50 PM Afshan Bear MD ECG ORDERABLES Final Result Performing Organization Address [facility] Co de Phone Number MUSE * Tacrolimus level (10/29/2024 8:08 AM EDT) Tacrolimus (LC-MS) 10.4 3.0 - 15.0 ng/mL 10/29/2024 2:07 PM EDT [facility] Comment:Performed via liquid chromatography tandem mass spectrometry. Detection limit: 1 ng/mL. Individual target concentrations may vary due to target organ and time after transplant. This test has been developed and its performance characteristics determined by [facility] which is certified under the Clinical [...] EDT 10/29/2024 8:21 AM EDT Priti Geiger [facility] BLOOD ORDERABLES Final Re sult Performing Organization Address City/[facility]/ZIP Co de Phone Number [facility] [address] [place] [address], [facility] * Prepare RBC, leukoreduced, 1 Units (10/29/2024 6:16 AM EDT) Product Code X1161J23 [facility] Unit Number [id number] [facility] Dispense Status Presumed Transfused_PT HCLL Blood Expiration Date [id number] HC[facility] Coding System [id number] [facility] Blood Bank Product Shay Plata MD BLOOD BANK PRODUCT O RDERABLES Final Result Performing Organization Address [facility] Co de Phone Number HC[facility] * Prepare RBC, leukoreduced, 1 Units (10/29/2024 6:15 AM EDT) Product Code U4009D58 [facility] Unit Number [id number] [facility] Dispense Status Presumed Transfused_PT [facility] Blood Expiration Date [id number] HCLL Coding System [id number] [facility] Blood Bank Product Carlos Marks MD BLOOD BANK PRODUCT ORDERABL ES Final Result Performing Organization Address [facility] Co de Phone Number [facility] * Prepare RBC, leukoreduced, 1 Units (10/29/2024 6:15 AM EDT) Product Code C9361H65 [facility] Unit Number [id number] [facility] Dispense Status Presumed Transfused_PT [facility] Blood Expiration Date [id number] [facility] Coding System [id number] [facility] Blood Bank Product John Moreno MD BLOOD BANK PRODUCT ORDERABLE S Final Result [facility] * (ABNORMAL) Renal Function Panel w/EGFR (10/29/2024 5:07 AM EDT) Sodium 144 133 - 146 mmol/L 10/29/2024 5:49 AM EDT [facility] Potassium 3.8 3.5 - 5.3 mmol/L 10/29/2024 5:49 AM EDT [facility] Chloride 113(H) 98 - 110 mmol/L 10/29/2024 5:49 AM EDT [facility] CO2 17(L) 21 - 33 mmol/L 10/29/2024 5:49 AM EDT [facility] Anion Gap 14 3 - 16 mmol/L 10/29/2024 5:49 AM EDT [facility] BUN 57(H) 7 - 25 mg/dL 10/29/2024 5:49 AM EDT [facility] Creatinine 1.93(H) 0.60 - 1.30 mg/dL 10/29/2024 5:49 AM EDT [facility] Glucose 110(H) 70 - 100 mg/dL 10/29/2024 5:49 AM EDT [facility] Calcium 9.3 8.6 - 10.3 mg/dL 10/29/2024 5:49 AM EDT [facility] Phosphorus 4.8(H) 2.1 - 4.7 mg/dL 10/29/2024 5:49 AM EDT [facility] Albumin 3.5 3.5 - 5.7 g/dL 10/29/2024 5:49 AM EDT [facility] Osmolality, Calculated 314(H) 278 - 305 mOsm/kg 10/29/2024 5:49 AM EDT [facility] EGFR 44 10/29/2024 5:49 AM EDT [facility] Comment:As of 2021, the [...] 5:07 AM EDT 10/29/2024 5:13 AM EDT [facility] Dada Horner [facility] BLOOD ORDERABLES Dneisse l Result Performing Organization Address [facility]/ZIP Co de Phone Number [facility] [address] [place] [address] * Magnesium (10/29/2024 5:07 AM EDT) Pathologist [facility] Magnesium 2.1 1.5 - 2.5 mg/dL 10/29/2024 5:49 AM EDT [facility] Plasma 10/29/2024 5:07 AM EDT 10/29/2024 5:13 AM EDT [facility] BLOOD ORDERABLES Denisse l Result [facility] [address] [place] [address] * (ABNORMAL) Hepatic Function Panel (10/29/2024 5:07 AM EDT) Total Bilirubin 4.2(H) 0.0 - 1.5 mg/dL 10/29/2024 5:49 AM EDT [facility] Bilirubin, Direct 2.85(H) 0.00 - 0.40 mg/dL 10/29/2024 5:49 AM EDT [facility] AST 31 13 - 39 U/L 10/29/2024 5:49 AM EDT [facility] ALT 88(H) 7 - 52 U/L 10/29/2024 5:49 AM EDT [facility] Alkaline Phosphatase 51 36 - 125 U/L 10/29/2024 5:49 AM EDT [facility] Total Protein 5.2(L) 6.4 - 8.9 g/dL 10/29/2024 5:49 AM EDT [facility] Albumin 3.5 3.5 - 5.7 g/dL 10/29/2024 5:49 AM EDT [facility] Bilirubin, Indirect 1.35(H) 0.00 - 1.10 mg/dL 10/29/2024 5:49 AM EDT [facility] Plasma 10/29/2024 5:07 AM EDT 10/29/2024 5:13 AM EDT Beata Horner [employer] LAB BLOOD ORDERABLES Denisse l Result [facility] [address] * (ABNORMAL) CBC (10/29/2024 5:07 AM EDT) WBC 7.8 3.8 - 10.8 10E3/uL 10/29/2024 5:38 AM EDT [facility] RBC 3.05(L) 4.20 - 5.80 10E6/uL 10/29/2024 5:38 AM EDT [facility] Hemoglobin 9.0(L) 13.2 - 17.1 g/dL 10/29/2024 5:38 AM EDT [facility] Hematocrit 26.7(L) 38.5 - 50.0 % 10/29/2024 5:38 AM EDT [facility] MCV 87.4 80.0 - 100.0 fL 10/29/2024 5:38 AM EDT [facility] MCH 29.7 27.0 - 33.0 pg 10/29/2024 5:38 AM EDT [facility] MCHC 33.9 32.0 - 36.0 g/dL 10/29/2024 5:38 AM EDT [facility] RDW 18.3(H) 11.0 - 15.0 % 10/29/2024 5:38 AM EDT [facility] Platelets 41(L) 140 - 400 10E3/uL 10/29/2024 5:38 AM EDT [facility] Comment: CNV Specimen checked for clots. None detected. MPV 7.5 7.5 - 11.5 fL 10/29/2024 5:38 AM EDT [facility] Whole Blood 10/29/2024 5:07 AM EDT 10/29/2024 5:13 AM EDT us Beata Horner [facility] BLOOD ORDERABLES Denisse valle Result [facility] [address] [place] [address], [facility] * (ABNORMAL) TEG-Bypass/ECMO/Liver HN (Factor function, Platelet/Fibrin Clot Strength w/Clot Breakdown, Heparinase In All Channels) (10/29/2024 5:07 AM EDT) [facility] Citrated Kaolin Reaction Time (TEGECMOLIVER) 8.9 4.6 - 9.1 minutes 10/29/2024 7:04 AM EDT [facility] Citrated Kaolin W/Heparinase Reaction Time (TEGECMOLIVER) 7.4 4.3 - 8.3 minutes 10/29/2024 7:04 AM EDT [facility] [employer] Kaolin Maximum Amplitude (TEGECMOLIVER) 52.9 52.0 - 69.0 mm 10/29/2024 7:04 AM EDT [facility] Citrated Functional Fibrinogen W/Heparinase Maximum Amplitude(TEGEC MOLIVER) 20.7 15.0 - 34.0 mm 10/29/2024 7:04 AM EDT [facility] Citrated Rapid Teg W/Heparinase Maximum Amplitude (TEGECMOLIVER) 49.7(L) 53.0 - 69.0 mm 10/29/2024 7:04 AM EDT [facility] Citrated Kaolin w/Heparinase Percent Lysis (TEGECMOLIVER) 0.0 0.0 - 3.2 % 10/29/2024 7:04 AM EDT [facility] Whole Blood (Citrate) 10/29/2024 5:07 AM EDT 10/29/2024 5:10 AM EDT Kemar Sahni MD LAB BLOOD ORDERABLES Final Result [facility] [address] [place] [address], [facility] * (ABNORMAL) TEG-Bypass/ECMO/Liver HN (Factor function, Platelet/Fibrin Clot Strength w/Clot Breakdown, Heparinase In All Channels) (10/28/2024 11:55 PM EDT) [facility] Citrated Kaolin Reaction Time (TEGECMOLIVER) 8.6 4.6 - 9.1 minutes 10/29/2024 2:01 AM EDT [facility] Citrated Kaolin W/Heparinase Reaction Time (TEGECMOLIVER) 8.7(H) 4.3 - 8.3 minutes 10/29/2024 2:01 AM EDT [facility] Citrated Kaolin Maximum Amplitude (TEGECMOLIVER) 47.9(L) 52.0 - 69.0 mm 10/29/2024 2:01 AM EDT [facility] Citrated Functional Fibrinogen W/Heparinase Maximum Amplitude(TEGEC MOLIVER) 22.0 15.0 - 34.0 mm 10/29/2024 2:01 AM EDT [facility] Citrated Rapid Teg W/Heparinase Maximum Amplitude (TEGECMOLIVER) 45.9(L) 53.0 - 69.0 mm 10/29/2024 2:01 AM EDT [facility] Citrated Kaolin w/Heparinase Percent Lysis (TEGECMOLIVER) 0.0 0.0 - 3.2 % 10/29/2024 2:01 AM EDT [facility] Whole Blood (Citrate) 10/28/2024 11:55 PM EDT 10/28/2024 11:58 PM EDT us Kemar Sahni MD LAB BLOOD ORDERABLES Final Result [facility] [address] * (ABNORMAL) CBC, STAT (10/28/2024 8:04 PM EDT) WBC 3.9 3.8 - 10.8 10E3/uL 10/28/2024 8:36 PM EDT [facility] RBC 2.66(L) 4.20 - 5.80 10E6/uL 10/28/2024 8:36 PM EDT [facility] Hemoglobin 8.0(L) 13.2 - 17.1 g/dL 10/28/2024 8:36 PM EDT [facility] Hematocrit 23.0(L) 38.5 - 50.0 % 10/28/2024 8:36 PM EDT [facility] MCV 86.4 80.0 - 100.0 fL 10/28/2024 8:36 PM EDT [facility] MCH 29.9 27.0 - 33.0 pg 10/28/2024 8:36 PM EDT [facility] MCHC 34.6 32.0 - 36.0 g/dL 10/28/2024 8:36 PM EDT [facility] RDW 18.6(H) 11.0 - 15.0 % 10/28/2024 8:36 PM EDT [facility] LAB Platelets 29(L) 140 - 400 10E3/uL 10/28/2024 8:36 PM EDT [facility] Comment: CNV Specimen checked for clots. None detected. MPV 7.8 7.5 - 11.5 fL 10/28/2024 8:36 PM EDT [facility] Whole Blood 10/28/2024 8:04 PM EDT 10/28/2024 8:14 PM EDT Carlos Marks MD LAB BLOOD ORDERABLES Final Result [facility] [address] * (ABNORMAL) POC Glucose Monitoring Device (10/28/2024 8:03 PM EDT) POC Glucose Monitoring Device 122(H) 70 - 100 mg/dL 10/28/2024 8:04 PM EDT [facility] Blood 10/28/2024 8:03 PM EDT 10/28/2024 8:04 PM EDT Harvey Domínguez III, MD POINT OF CARE TEST ORDERABLES Final Result [facility] [address] [place] [address], [facility] * (ABNORMAL) TEG-Bypass/ECMO/Liver HN (Factor function, Platelet/Fibrin Clot Strength w/Clot Breakdown, Heparinase In All Channels) (10/28/2024 6:39 PM EDT) Citrated Kaolin Reaction Time (TEGECMOLIVER) 9.0 4.6 - 9.1 minutes 10/28/2024 7:50 PM EDT [facility] Citrated Kaolin W/Heparinase Reaction Time (TEGECMOLIVER) 8.3 4.3 - 8.3 minutes 10/28/2024 7:50 PM EDT [facility] Citrated Kaolin Maximum Amplitude (TEGECMOLIVER) 47.6(L) 52.0 - 69.0 mm 10/28/2024 7:50 PM EDT [facility] Citrated Functional Fibrinogen W/Heparinase Maximum Amplitude(TEGEC MOLIVER) 20.4 15.0 - 34.0 mm 10/28/2024 7:50 PM EDT [facility] Citrated Rapid Teg W/Heparinase Maximum Amplitude (TEGECMOLIVER) 44.0(L) 53.0 - 69.0 mm 10/28/2024 7:50 PM EDT [facility] Citrated Kaolin w/Heparinase Percent Lysis (TEGECMOLIVER) 0.0 0.0 - 3.2 % 10/28/2024 7:50 PM EDT [facility] Whole Blood (Citrate) 10/28/2024 6:39 PM EDT 10/28/2024 6:42 PM EDT us Kemar Sahni MD LAB BLOOD ORDERABLES Final Result Performing Organization Address [facility] Co de Phone Number [facility] [address] * (ABNORMAL) POC Glucose Monitoring Device (10/28/2024 5:31 PM EDT) POC Glucose Monitoring Device 130(H) 70 - 100 mg/dL 10/28/2024 5:31 PM EDT [facility] Blood 10/28/2024 5:31 PM EDT 10/28/2024 5:31 PM EDT us Harvey Domínguez III, MD POINT OF CARE TEST ORDERABLES Final Result Performing Organization Address [facility] Co de Phone Number [facility] [address] [facility]. [address] * Transfuse RBC Transfusion Rate: Per dept routine (10/28/2024 5:23 PM EDT) us Shay Plata MD NURSING TREATMENT OR DERABLES - BLOOD ADMIN Final Result Performing Organization Address [facility] Co de Phone Number EXTERNAL * Transfuse RBC Transfusion Rate: Per dept routine, 1 Units (10/28/2024 5:23 PM EDT) us Shay Plata MD NURSING TREATMENT OR DERABLES - BLOOD ADMIN Final Result Performing Organization Address [facility] de Phone Number EXTERNAL * US Abdomen [...] EXAM: US ABDOMEN LIMITED EXAM: US DUPLEX [id number] COMPLETE INDICATION: Post-op liver transplant DATE: 10/28/2024 [...] retrohepatic inferior vena cava is patent. The sycuan right kidney is partially visualized. A prominent [...] EXAM: US ABDOMEN LIMITED EXAM: US DUPLEX [id number] COMPLETE INDICATION: Post-op liver transplant DATE: 10/28/2024 [...] retrohepatic inferior vena cava is patent. The sycuan right kidney is partially visualized. A prominent [...] 4:42 PM EDT us Shay Plata MD [facility] US ORDERABLES Fi nal Result * US Duplex [id number] Comp (10/28/2024 4:23 PM EDT) Anatomical Region [...] EXAM: US ABDOMEN LIMITED EXAM: US DUPLEX [id number] COMPLETE INDICATION: Post-op liver transplant DATE: 10/28/2024 [...] retrohepatic inferior vena cava is patent. The sycuan right kidney is partially visualized. A prominent [...] EXAM: US ABDOMEN LIMITED EXAM: US DUPLEX [id number] COMPLETE INDICATION: Post-op liver transplant DATE: 10/28/2024 [...] retrohepatic inferior vena cava is patent. The sycuan right kidney is partially visualized. A prominent [...] - 10.8 10E3/uL 10/28/2024 3:07 PM EDT [facility] RBC 2.44(L) 4.20 - 5.80 10E6/uL 10/28/2024 3:07 PM EDT [facility] Hemoglobin 7.5(L) 13.2 - 17.1 g/dL 10/28/2024 3:07 PM EDT [facility] Hematocrit 21.4(L) 38.5 - 50.0 % 10/28/2024 3:07 PM EDT [facility] MCV 87.6 80.0 - 100.0 fL 10/28/2024 3:07 PM EDT [facility] MCH 30.6 27.0 - 33.0 pg 10/28/2024 3:07 PM EDT [facility] MCHC 34.9 32.0 - 36.0 g/dL 10/28/2024 3:07 PM EDT [facility] RDW 18.4(H) 11.0 - 15.0 % 10/28/2024 3:07 PM EDT [facility] Platelets 30(L) 140 - 400 10E3/uL 10/28/2024 3:07 PM EDT [facility] Comment: CNV Specimen checked for clots. None detected. MPV 7.7 7.5 - 11.5 fL 10/28/2024 3:07 PM EDT [facility] Whole Blood 10/28/2024 2:49 PM EDT 10/28/2024 2:53 PM EDT us Carlos Marks MD LAB BLOOD ORDERABLES Final Result [facility] [address] [place], [place] [address] * ECG 12 lead (MUSE) (10/28/2024 1:22 PM EDT) 10/28/2024 1:22 PM EDT Narrative MUSE - 10/29/2024 10:34 PM EDT Ventricular Rate: 104 BPM Atrial Rate: 104 BPM P-R Interval: 172 ms QRS Duration: 90 ms QT: 354 ms QTc: 465 ms P [place]: 58 degrees R [place]: -19 degrees T [place]: 38 degrees Diagnosis Line: SINUS TACHYCARDIA ^ OTHERWISE NORMAL ECG ^ ^ Confirmed by JORGE MACIAS ([id number]) on 10/29/2024 10:34:22 PM us Hillary Fernandes PharmD ECG ORDERABLES Final Res ult Performing Organization Address [facility] Co de Phone Number MUSE * (ABNORMAL) POC Glucose Monitoring Device (10/28/2024 12:54 PM EDT) POC Glucose Monitoring Device 119(H) 70 - 100 mg/dL 10/28/2024 12:55 PM EDT [facility] Blood 10/28/2024 12:5 4 PM EDT 10/28/2024 12:55 PM EDT us Harvey Domínguez III, MD POINT OF CARE TEST ORDERABLES Final Result Performing Organization Address [facility] de Phone Number [facility] [address] * Transfuse RBC Transfusion Rate: Per dept routine (10/28/2024 12:31 PM EDT) us Carlos Marks MD NURSING TREATMENT ORDERABLE S - BLOOD ADMIN Final Result Performing Organization Address City/[facility] Co de Phone Number EXTERNAL * Transfuse RBC Transfusion Rate: Per dept routine, 1 Units (10/28/2024 12:31 PM EDT) us Carlos Marks MD NURSING TREATMENT ORDERABLE S - BLOOD ADMIN Final Result Performing Organization Address [facility] Co de Phone Number EXTERNAL * Protime-INR, STAT (10/28/2024 11:09 AM EDT) Protime 14.3 12.1 - 15.1 seconds 10/28/2024 11:29 AM EDT [facility] INR 1.1 0.9 - 1.1 10/28/2024 11:29 AM EDT [facility] Comment: RECOMMENDED THERAPEUTIC RANGES USING INR : Stable oral anticoagulant therapy: 2.0 - 3.0 Mechanical prosthetic heart valve: 2.5 - 3.5 Recurrent acute myocardial infarction: 2.5 - 3.5 Plasma 10/28/2024 11:0 9 AM EDT 10/28/2024 11:16 AM EDT us Carlos Marks MD LAB BLOOD ORDERABLES Final Result Performing Organization Address City/[facility]/ZIP Co de Phone Number [facility] [address] [facility]. [address] * (ABNORMAL) Lactic Acid, STAT (10/28/2024 11:09 AM EDT) Lactate 0.3(L) 0.5 - 2.2 mmol/L 10/28/2024 11:37 AM EDT [facility] Plasma 10/28/2024 11:0 9 AM EDT 10/28/2024 11:15 AM EDT us Carlos Marks MD LAB BLOOD ORDERABLES Final Result Performing Organization Address [facility] Co de Phone Number [facility] [address] * Magnesium, STAT (10/28/2024 11:09 AM EDT) Magnesium 2.1 1.5 - 2.5 mg/dL 10/28/2024 11:47 AM EDT [facility] Plasma 10/28/2024 11:0 9 AM EDT 10/28/2024 11:16 AM EDT us Carlos Marks MD LAB BLOOD ORDERABLES Final Result Performing Organization Address City/[facility]/ZIP Co de Phone Number [facility] [address] [facility]. [address] * (ABNORMAL) Renal Function Panel w/EGFR, STAT (10/28/2024 11:09 AM EDT) Sodium 144 133 - 146 mmol/L 10/28/2024 11:47 AM T [facility] Potassium 3.4(L) 3.5 - 5.3 mmol/L 10/28/2024 11:47 AM EDT [facility] Chloride 112(H) 98 - 110 mmol/L 10/28/2024 11:47 AM EDT [facility] CO2 22 21 - 33 mmol/L 10/28/2024 11:47 AM [facility] Anion Gap 10 3 - 16 mmol/L 10/28/2024 11:47 AM [facility] BUN 57(H) 7 - 25 mg/dL 10/28/2024 11:47 AM [facility] Creatinine 2.01(H) 0.60 - 1.30 mg/dL 10/28/2024 11:47 AM [facility] Glucose 108(H) 70 - 100 mg/dL 10/28/2024 11:47 AM [facility] Calcium 8.8 8.6 - 10.3 mg/dL 10/28/2024 11:47 AM EDT [facility] Phosphorus 4.0 2.1 - 4.7 mg/dL 10/28/2024 11:47 AM [facility] Albumin 3.3(L) 3.5 - 5.7 g/dL 10/28/2024 11:47 AM [facility] Osmolality, Calculated 314(H) 278 - 305 mOsm/kg 10/28/2024 11:47 AM [facility] EGFR 42 10/28/2024 11:47 AM [facility] Comment:As of 2021, the estimated [...] M, Olivia DC, Emerita ND, Madelyn CA, Bit Sharpener Operator [place], et al. A Unifying Approach for GFR Estimation: Recommendations of the NKF-ASN Task Force on Reassessing the inclusion of Race in Diagnosing Kidney Disease. Am J Kidney Dis. 2020. Plasma 10/28/2024 11:0 9 AM EDT 10/28/2024 11:16 AM EDT us Carlos Marks MD LAB BLOOD ORDERABLES Final Result [facility] [address] [place] [address], [facility] * (ABNORMAL) TEG-Bypass/ECMO/Liver HN (Factor function, Platelet/Fibrin Clot Strength w/Clot Breakdown, Heparinase In All Channels) (10/28/2024 11:09 AM EDT) [facility] Signature Citrated Kaolin Reaction Time (TEGECMOLIVER) 9.2(H) 4.6 - 9.1 minutes 10/28/2024 12:30 PM EDT [facility] Citrated Kaolin W/Heparinase Reaction Time (TEGECMOLIVER) 9.6(H) 4.3 - 8.3 minutes 10/28/2024 12:30 PM EDT [facility] Citrated Kaolin Maximum Amplitude (TEGECMOLIVER) 51.2(L) 52.0 - 69.0 mm 10/28/2024 12:30 PM EDT [facility] Citrated Functional Fibrinogen W/Heparinase Maximum Amplitude(TEGEC MOLIVER) 21.6 15.0 - 34.0 mm 10/28/2024 12:30 PM EDT [facility] Citrated Rapid Teg W/Heparinase Maximum Amplitude (TEGECMOLIVER) 49.3(L) 53.0 - 69.0 mm 10/28/2024 12:30 PM EDT [facility] Citrated Kaolin w/Heparinase Percent Lysis (TEGECMOLIVER) 0.0 0.0 - 3.2 % 10/28/2024 12:30 PM EDT [facility] Whole Blood (Citrate) 10/28/2024 11:09 AM EDT 10/28/2024 11:14 AM EDT us Kemar Sahni MD LAB BLOOD ORDERABLES Final Result [facility] [address] * (ABNORMAL) CBC (10/28/2024 10:21 AM EDT) WBC 4.1 3.8 - 10.8 10E3/uL 10/28/2024 10:41 AM EDT [facility] RBC 2.30(L) 4.20 - 5.80 10E6/uL 10/28/2024 10:41 AM EDT [facility] Hemoglobin 7.1(L) 13.2 - 17.1 g/dL 10/28/2024 10:41 AM EDT [facility] Hematocrit 20.4(L) 38.5 - 50.0 % 10/28/2024 10:41 AM EDT [facility] MCV 88.5 80.0 - 100.0 fL 10/28/2024 10:41 AM EDT [facility] MCH 30.7 27.0 - 33.0 pg 10/28/2024 10:41 AM EDT [facility] MCHC 34.7 32.0 - 36.0 g/dL 10/28/2024 10:41 AM EDT [facility] RDW 18.7(H) 11.0 - 15.0 % 10/28/2024 10:41 AM EDT [facility] Platelets 37(L) 140 - 400 10E3/uL 10/28/2024 10:41 AM EDT [facility] Comment: CNV Specimen checked for clots. None detected. MPV 7.6 7.5 - 11.5 fL 10/28/2024 10:41 AM EDT [facility] Whole Blood 10/28/2024 10:2 1 AM EDT 10/28/2024 10:29 AM EDT us Carlos Marks MD LAB BLOOD ORDERABLES Final Result [facility] [address] * POC Glucose Monitoring Device (10/28/2024 9:07 AM EDT) Pathologist [facility] POC Glucose Monitoring Device 97 70 - 100 mg/dL 10/28/2024 9:08 AM EDT [facility] Blood 10/28/2024 9:07 AM EDT 10/28/2024 9:08 AM EDT Harvey Domínguez III, MD POINT OF CARE TEST ORDERABLES Final Result Performing Organization Address [facility] Co de Phone Number [facility] [address] * (ABNORMAL) Tacrolimus level (10/28/2024 8:20 AM EDT) [facility] Tacrolimus (LC-MS) <1.0(L) 3.0 - 15.0 ng/mL 10/28/2024 2:02 PM EDT [facility] Comment:Performed via liquid chromatography tandem mass spectrometry. Detection limit: 1 ng/mL. Individual target concentrations may vary due to target organ and time after transplant. This test has been developed and its performance characteristics determined by [facility] which is certified under the Clinical [...] 10/28/2024 8:29 AM EDT Priti Geiger [facility] LAB BLOOD ORDERABLES Final Re sult Performing Organization Address [facility]/ZIP Co de Phone Number [facility] [address] [facility]. [address] * (ABNORMAL) POC Glucose Monitoring Device (10/28/2024 8:10 AM EDT) Pathologist [facility] POC Glucose Monitoring Device 102(H) 70 - 100 mg/dL 10/28/2024 8:11 AM EDT [facility] Blood 10/28/2024 8:10 AM EDT 10/28/2024 8:11 AM EDT Harvey Domínguez III, MD POINT OF CARE TEST ORDERABLES Final Result Performing Organization Address [facility] de Phone Number [facility] [address] * POC Glucose Monitoring Device (10/28/2024 6:17 AM EDT) POC Glucose Monitoring Device 100 70 - 100 mg/dL 10/28/2024 6:18 AM EDT [facility] Blood 10/28/2024 6:17 AM EDT 10/28/2024 6:18 AM EDT Harvey Domínguez III, MD POINT OF CARE TEST ORDERABLES Final Result Performing Organization Address [facility] de Phone Number [facility] [address] * Prepare Platelets, leukoreduced (10/28/2024 6:15 AM EDT) Product Code I9622E75 HCLL Unit Number [id number] HCLL Dispense Status Presumed Transfused_PT HCLL Blood Expiration Date HCLL Coding System [id number] HCLL Product Code E2454R87 HCLL Unit Number [id number] HCLL Dispense Status Presumed Transfused_PT HCLL Blood Expiration Date HCLL Coding System [id number] HCLL us Attending Provider Unknown BLOOD BANK PRODUCT OR DERABLES Final Result Performing Organization Address City/[facility]/ZIP Co de Phone Number HCLL * Prepare Fresh Frozen Plasma (10/28/2024 6:15 AM EDT) Product Code F6957D13 HCLL Unit Number [id number] HCLL Dispense Status Released from Crossmatch_RE HCLL Blood Expiration Date HCLL Coding System ZDSM353 HCLL Product Code L5567Q53 HCLL Unit Number [id number] HCLL Dispense Status Presumed Transfused_PT HCLL Blood Expiration Date HCLL Coding System GLHP797 HCLL Product Code F4411J54 HCLL Unit Number [id number] HCLL Dispense Status Released from Crossmatch_RE HCLL Blood Expiration Date HCLL Coding System SOXA376 HCLL Product Code B9093X15 HCLL Unit Number [id number] HCLL Dispense Status Presumed Transfused_PT HCLL Blood Expiration Date HCLL Coding System GVPG999 HCLL Product Code B7967C12 HCLL Unit Number [id number] HCLL Dispense Status Released from Crossmatch_RE HCLL Blood Expiration Date HCLL Coding System RZWI008 HCLL us Attending Provider Unknown BLOOD BANK PRODUCT OR DERABLES Final Result HCLL * Prepare RBC, leukoreduced (10/28/2024 6:15 AM EDT) Product Code F2999Y77 HCLL Unit Number [id number] HCLL Dispense Status Released from Crossmatch_RE HCLL Blood Expiration Date HCLL Coding System FSPK771 HCLL Product Code B9163U91 HCLL Unit Number [id number] HCLL Dispense Status Presumed Transfused_PT HCLL Blood Expiration Date 378518541130 HCLL Coding System [id number] HCLL Product Code H0264P39 HCLL Unit Number [id number] HCLL Dispense Status Released from Crossmatch_RE HCLL Blood Expiration Date 519341216659 HCLL Coding System MASX133 HCLL Product Code L9834G40 HCLL Unit Number [id number] HCLL Dispense Status Presumed Transfused_PT HCLL Blood Expiration Date 406021396054 HCLL Coding System YDRC865 HCLL Product Code L3081I75 HCLL Unit Number [id number] HCLL Dispense Status Released from Crossmatch_RE HCLL Blood Expiration Date 641846248151 HCLL Coding System YRWN246 HCLL Attending Provider Unknown BLOOD BANK PRODUCT OR DERABLES Final Result Performing Organization Address City/[facility]/ZIP Co de Phone Number HCLL * Prepare Platelets, leukoreduced, 1 Units (10/28/2024 6:15 AM EDT) Product Code N4834W78 HCLL Unit Number [id number] HCLL Dispense Status Presumed Transfused_PT HCLL Blood Expiration Date 044630901829 HCLL Coding System SIZW037 HCLL Blood Bank Product John Pina MD BLOOD BANK PRODUCT ORDERABLES F inal Result Performing Organization Address [facility] Co de Phone Number HCLL * Prepare Cryoprecipitate, 1 Units (10/28/2024 6:15 AM EDT) Product Code B0868Z97 HCLL Unit Number [id number] HCLL Dispense Status Presumed Transfused_PT HCLL Blood Expiration Date HCLL Coding System RRBB543 HCLL Product Code S2875U61 HCLL Unit Number [id number] HCLL Dispense Status Presumed Transfused_PT HCLL Blood Expiration Date HCLL Coding System VOEF988 HCLL Blood Bank Product John Pina MD BLOOD BANK PRODUCT ORDERABLES F inal Result Performing Organization Address [facility] Co de Phone Number HCLL * Prepare Fresh Frozen Plasma, 1 Units (10/28/2024 6:15 AM EDT) Product Code P7423O88 HCLL Unit Number [id number] Dispense Status Presumed Transfused_PT HCLL Blood Expiration Date 978277274778 HCLL Coding System ZNTG310 HCLL Blood Bank Product John Pina MD BLOOD BANK PRODUCT ORDERABLES F inal Result Performing Organization Address [facility] Co de Phone Number HCLL * Prepare Cryoprecipitate, 1 Units (10/28/2024 6:15 AM EDT) Product Code D9568W56 HCLL Unit Number [id number] HCLL Dispense Status Presumed Transfused_PT HCLL Blood Expiration Date 346317194246 HCLL Coding System EGEJ128 HCLL Product Code S3061B68 HCLL Unit Number [id number] HCLL Dispense Status Presumed Transfused_PT HCLL Blood Expiration Date 581508301546 HCLL Coding System CGXU670 HCLL Product Code I4309I89 HCLL Unit Number [id number] HCLL Dispense Status Presumed Transfused_PT HCLL Blood Expiration Date 491373089383 HCLL Coding System PKLP899 HCLL Product Code X5888N85 HCLL Unit Number [id number] HCLL Dispense Status Presumed Transfused_PT HCLL Blood Expiration Date 891503948876 HCLL Coding System EWTE811 HCLL Blood Bank Product John Pina MD BLOOD BANK PRODUCT ORDERABLES F inal Result Performing Organization Address [facility] Co de Phone Number HCLL * (ABNORMAL) POC Glucose Monitoring Device (10/28/2024 4:55 AM EDT) POC Glucose Monitoring Device 104(H) 70 - 100 mg/dL 10/28/2024 4:57 AM EDT [facility] Blood 10/28/2024 4:55 AM EDT 10/28/2024 4:57 AM EDT Harvey Domínguez III, MD POINT OF CARE TEST ORDERABLES Final Result [facility] [address] * TEG-Bypass/ECMO/Liver HN (Factor function, Platelet/Fibrin Clot Strength w/Clot Breakdown, Heparinase In All Channels) (10/28/2024 4:13 AM EDT) Citrated Kaolin Reaction Time (TEGECMOLIVER) 7.2 4.6 - 9.1 minutes 10/28/2024 5:38 AM EDT [facility] Citrated Kaolin W/Heparinase Reaction Time (TEGECMOLIVER) 7.8 4.3 - 8.3 minutes 10/28/2024 5:38 AM EDT [facility] Citrated Kaolin Maximum Amplitude (TEGECMOLIVER) 53.0 52.0 - 69.0 mm 10/28/2024 5:38 AM EDT [facility] Citrated Functional Fibrinogen W/Heparinase Maximum Amplitude(TEGEC MOLIVER) 21.4 15.0 - 34.0 mm 10/28/2024 5:38 AM EDT [facility] Citrated Rapid Teg W/Heparinase Maximum Amplitude (TEGECMOLIVER) 54.7 53.0 - 69.0 mm 10/28/2024 5:38 AM EDT [facility] Citrated Kaolin w/Heparinase Percent Lysis (TEGECMOLIVER) 0.0 0.0 - 3.2 % 10/28/2024 5:38 AM EDT [facility] Whole Blood (Citrate) 10/28/2024 4:13 AM EDT 10/28/2024 4:28 AM EDT us Kemar Sahni MD LAB BLOOD ORDERABLES Final Result [facility] [address] * Protime-INR (10/28/2024 4:13 AM EDT) Protime 14.6 12.1 - 15.1 seconds 10/28/2024 4:53 AM EDT [facility] INR 1.1 0.9 - 1.1 10/28/2024 4:53 AM EDT [facility] Comment: RECOMMENDED THERAPEUTIC RANGES USING INR : Stable oral anticoagulant therapy: 2.0 - 3.0 Mechanical prosthetic heart valve: 2.5 - 3.5 Recurrent acute myocardial infarction: 2.5 - 3.5 Plasma 10/28/2024 4:13 AM EDT 10/28/2024 4:41 AM EDT Kemar Sahni MD LAB BLOOD ORDERABLES Final Result Performing Organization Address City/[facility] Co de Phone Number [facility] [address] [facility] * Magnesium (10/28/2024 4:13 AM EDT) Magnesium 2.2 1.5 - 2.5 mg/dL 10/28/2024 5:15 AM EDT [facility] Plasma 10/28/2024 4:13 AM EDT 10/28/2024 4:41 AM EDT Kemar Sahni MD LAB BLOOD ORDERABLES Final Result Performing Organization Address [facility] de Phone Number [facility] [address] [facility]. [address] * (ABNORMAL) Hepatic Function Panel (10/28/2024 4:13 AM EDT) Total Bilirubin 2.3(H) 0.0 - 1.5 mg/dL 10/28/2024 5:15 AM EDT [facility] Bilirubin, Direct 1.67(H) 0.00 - 0.40 mg/dL 10/28/2024 5:15 AM EDT [facility] AST 44(H) 13 - 39 U/L 10/28/2024 5:15 AM EDT [facility] ALT 101(H) 7 - 52 U/L 10/28/2024 5:15 AM EDT [facility] [facility] Alkaline Phosphatase 26(L) 36 - 125 U/L 10/28/2024 5:15 AM EDT [facility] Total Protein 4.5(L) 6.4 - 8.9 g/dL 10/28/2024 5:15 AM EDT [facility] Albumin 3.1(L) 3.5 - 5.7 g/dL 10/28/2024 5:15 AM EDT [facility] Bilirubin, Indirect 0.63 0.00 - 1.10 mg/dL 10/28/2024 5:15 AM EDT [facility] Plasma 10/28/2024 4:13 AM EDT 10/28/2024 4:41 AM EDT us Kemar Sahni MD LAB BLOOD ORDERABLES Final Result [facility] [address] [id number], [facility] * (ABNORMAL) Renal Function Panel w/EGFR (10/28/2024 4:13 AM EDT) Sodium 142 133 - 146 mmol/L 10/28/2024 5:15 AM EDT [facility] Potassium 3.5 3.5 - 5.3 mmol/L 10/28/2024 5:15 AM EDT [facility] Chloride 111(H) 98 - 110 mmol/L 10/28/2024 5:15 AM EDT [facility] CO2 22 21 - 33 mmol/L 10/28/2024 5:15 AM EDT [facility] Anion Gap 9 3 - 16 mmol/L 10/28/2024 5:15 AM EDT [facility] BUN 58(H) 7 - 25 mg/dL 10/28/2024 5:15 AM EDT [facility] Creatinine 2.24(H) 0.60 - 1.30 mg/dL 10/28/2024 5:15 AM EDT [facility] Glucose 103(H) 70 - 100 mg/dL 10/28/2024 5:15 AM EDT [facility] Calcium 9.1 8.6 - 10.3 mg/dL 10/28/2024 5:15 AM EDT [facility] Phosphorus 4.8(H) 2.1 - 4.7 mg/dL 10/28/2024 5:15 AM EDT [facility] Albumin 3.1(L) 3.5 - 5.7 g/dL 10/28/2024 5:15 AM EDT [facility] Osmolality, Calculated 310(H) 278 - 305 mOsm/kg 10/28/2024 5:15 AM EDT [facility] EGFR 37 10/28/2024 5:15 AM EDT [facility] Comment:As of 2021, the [...] LAB BLOOD ORDERABLES Final Result [facility] [address] [id number] * (ABNORMAL) CBC (10/28/2024 4:13 AM EDT) WBC 4.5 3.8 - 10.8 10E3/uL 10/28/2024 5:09 AM EDT [facility] RBC 2.39(L) 4.20 - 5.80 10E6/uL 10/28/2024 5:09 AM EDT [facility] Hemoglobin 7.3(L) 13.2 - 17.1 g/dL 10/28/2024 5:09 AM EDT [facility] Hematocrit 21.0(L) 38.5 - 50.0 % 10/28/2024 5:09 AM EDT [facility] MCV 87.8 80.0 - 100.0 fL 10/28/2024 5:09 AM EDT [facility] MCH 30.5 27.0 - 33.0 pg 10/28/2024 5:09 AM EDT [facility] MCHC 34.7 32.0 - 36.0 g/dL 10/28/2024 5:09 AM EDT [facility] RDW 18.7(H) 11.0 - 15.0 % 10/28/2024 5:09 AM EDT [facility] Platelets 38(L) 140 - 400 10E3/uL 10/28/2024 5:09 AM EDT [facility] Comment: CNV Specimen checked for clots. None detected. MPV 7.6 7.5 - 11.5 fL 10/28/2024 5:09 AM EDT [facility] Whole Blood 10/28/2024 4:13 AM EDT 10/28/2024 4:41 AM EDT us Kemar Sahni MD LAB BLOOD ORDERABLES Final Result [facility] [address] * (ABNORMAL) POC Glucose Monitoring Device (10/28/2024 4:04 AM EDT) POC Glucose Monitoring Device 103(H) 70 - 100 mg/dL 10/28/2024 4:05 AM EDT [facility] Blood 10/28/2024 4:04 AM EDT 10/28/2024 4:05 AM EDT Harvey Domínguez III, MD POINT OF CARE TEST ORDERABLES Final Result [facility] [address] * (ABNORMAL) POC Glucose Monitoring Device (10/28/2024 3:00 AM EDT) POC Glucose Monitoring Device 106(H) 70 - 100 mg/dL 10/28/2024 3:01 AM EDT [facility] Blood 10/28/2024 3:00 AM EDT 10/28/2024 3:01 AM EDT us Harvey Domínguez III, MD POINT OF CARE TEST ORDERABLES Final Result Performing Organization Address City/[facility]/ZIP Co de Phone Number [facility] [address] [place] [address]. [address] * (ABNORMAL) POC Glucose Monitoring Device (10/28/2024 2:32 AM EDT) POC Glucose Monitoring Device 109(H) 70 - 100 mg/dL 10/28/2024 2:33 AM EDT [facility] Blood 10/28/2024 2:32 AM EDT 10/28/2024 2:33 AM EDT us Harvey Domníguez III, MD POINT OF CARE TEST ORDERABLES Final Result Performing Organization Address [facility] Co de Phone Number [facility] [address] [facility]. [address] * (ABNORMAL) POC Glucose Monitoring Device (10/28/2024 2:14 AM EDT) POC Glucose Monitoring Device 115(H) 70 - 100 mg/dL 10/28/2024 2:15 AM EDT [facility] Blood 10/28/2024 2:14 AM EDT 10/28/2024 2:15 AM EDT us Harvey Domínguez III, MD POINT OF CARE TEST ORDERABLES Final Result Performing Organization Address City/[facility] Co de Phone Number [facility] [address] [facility]. [address] * (ABNORMAL) POC Glucose Monitoring Device (10/28/2024 2:03 AM EDT) POC Glucose Monitoring Device 101(H) 70 - 100 mg/dL 10/28/2024 2:04 AM EDT [facility] Blood 10/28/2024 2:03 AM EDT 10/28/2024 2:04 AM EDT Harvey Domínguez III, MD POINT OF CARE TEST ORDERABLES Final Result Performing Organization Address City/[facility]/ZIP Co de Phone Number [facility] [address] * Transfuse RBC Transfusion Rate: Per dept routine (10/28/2024 1:51 AM EDT) John Moreno MD NURSING TREATMENT ORDERABLES - BLOOD ADMIN Final Result Performing Organization Address City/[facility]/ZIP Co de Phone Number EXTERNAL * Transfuse RBC Transfusion Rate: Per dept routine, 1 Units (10/28/2024 1:51 AM EDT) John Moreno MD NURSING TREATMENT ORDERABLES - BLOOD ADMIN Final Result Performing Organization Address City/[facility] Co de Phone Number EXTERNAL * (ABNORMAL) TEG-Bypass/ECMO/Liver HN (Factor function, Platelet/Fibrin Clot Strength w/Clot Breakdown, Heparinase In All Channels) (10/28/2024 12:05 AM EDT) [facility] Citrated Kaolin Reaction Time (TEGECMOLIVER) 7.5 4.6 - 9.1 minutes 10/28/2024 1:22 AM EDT [facility] Citrated Kaolin W/Heparinase Reaction Time (TEGECMOLIVER) 7.7 4.3 - 8.3 minutes 10/28/2024 1:22 AM EDT [facility] Citrated Kaolin Maximum Amplitude (TEGECMOLIVER) 54.4 52.0 - 69.0 mm 10/28/2024 1:22 AM EDT [facility] Citrated Functional Fibrinogen W/Heparinase Maximum Amplitude(TEGEC MOLIVER) 20.4 15.0 - 34.0 mm 10/28/2024 1:22 AM EDT [facility] Citrated Rapid Teg W/Heparinase Maximum Amplitude (TEGECMOLIVER) 51.0(L) 53.0 - 69.0 mm 10/28/2024 1:22 AM EDT [facility] Citrated Kaolin w/Heparinase Percent Lysis (TEGECMOLIVER) 0.0 0.0 - 3.2 % 10/28/2024 1:22 AM EDT [facility] Whole Blood (Citrate) 10/28/2024 12:05 AM EDT 10/28/2024 12:09 AM EDT Kemar Sahni MD LAB BLOOD ORDERABLES Final Result Performing Organization Address City/[facility]/ZIP Co de Phone Number [facility] [address] * Magnesium (10/28/2024 12:05 AM EDT) Magnesium 2.2 1.5 - 2.5 mg/dL 10/28/2024 1:59 AM EDT [facility] Plasma 10/28/2024 12:0 5 AM EDT 10/28/2024 12:11 AM EDT Kemar Sahni MD LAB BLOOD ORDERABLES Final Result Performing Organization Address [facility] de Phone Number [facility] [address] * (ABNORMAL) Renal Function Panel w/EGFR (10/28/2024 12:05 AM EDT) Sodium 144 133 - 146 mmol/L 10/28/2024 1:59 AM EDT [facility] Potassium 3.4(L) 3.5 - 5.3 mmol/L 10/28/2024 1:59 AM EDT [facility] Chloride 112(H) 98 - 110 mmol/L 10/28/2024 1:59 AM EDT [facility] CO2 19(L) 21 - 33 mmol/L 10/28/2024 1:59 AM EDT [facility] Anion Gap 13 3 - 16 mmol/L 10/28/2024 1:59 AM EDT [facility] BUN 59(H) 7 - 25 mg/dL 10/28/2024 1:59 AM EDT [facility] Creatinine 2.42(H) 0.60 - 1.30 mg/dL 10/28/2024 1:59 AM EDT [facility] Glucose 118(H) 70 - 100 mg/dL 10/28/2024 1:59 AM EDT [facility] Calcium 9.0 8.6 - 10.3 mg/dL 10/28/2024 1:59 AM EDT [facility] Phosphorus 5.3(H) 2.1 - 4.7 mg/dL 10/28/2024 1:59 AM EDT [facility] Albumin 3.1(L) 3.5 - 5.7 g/dL 10/28/2024 1:59 AM EDT [facility] Osmolality, Calculated 316(H) 278 - 305 mOsm/kg 10/28/2024 1:59 AM EDT [facility] EGFR 34 10/28/2024 1:59 AM EDT [facility] Comment:As of 2021, the [...] LAB BLOOD ORDERABLES Final Result [facility] [address] [id number], [facility] * (ABNORMAL) Differential (10/28/2024 12:05 AM EDT) Neutrophils Relative 88.6(H) 40.0 - 80.0 % 10/28/2024 12:41 AM EDT [facility] Lymphocytes Relative 2.5(L) 15.0 - 45.0 % 10/28/2024 12:41 AM EDT [facility] Monocytes Relative 6.1 0.0 - 12.0 % 10/28/2024 12:41 AM EDT [facility] Eosinophils Relative 2.4 0.0 - 8.0 % 10/28/2024 12:41 AM EDT [facility] Basophils Relative 0.4 0.0 - 1.0 % 10/28/2024 12:41 AM EDT [facility] nRBC 0 0 - 0 /100 WBC 10/28/2024 12:41 AM EDT [facility] Neutrophils Absolute 4,341 1,520 - 8,640 /uL 10/28/2024 12:41 AM EDT [facility] Lymphocytes Absolute 123(L) 570 - 4,860 /uL 10/28/2024 12:41 AM EDT [facility] Monocytes Absolute 299 0 - 1,296 /uL 10/28/2024 12:41 AM EDT [facility] Eosinophils Absolute 118 0 - 864 /uL 10/28/2024 12:41 AM EDT [facility] Basophils Absolute 20 0 - 108 /uL 10/28/2024 12:41 AM EDT [facility] Whole Blood 10/28/2024 12:0 5 AM EDT 10/28/2024 12:11 AM EDT Kemar Sahni MD LAB BLOOD ORDERABLES Final Result [facility] [address] [place] [address], [facility] * (ABNORMAL) CBC (10/28/2024 12:05 AM EDT) WBC 4.9 3.8 - 10.8 10E3/uL 10/28/2024 12:41 AM EDT [facility] RBC 2.18(L) 4.20 - 5.80 10E6/uL 10/28/2024 12:41 AM EDT [facility] Hemoglobin 6.7(L) 13.2 - 17.1 g/dL 10/28/2024 12:41 AM EDT [facility] Hematocrit 19.2(L) 38.5 - 50.0 % 10/28/2024 12:41 AM EDT [facility] MCV 87.8 80.0 - 100.0 fL 10/28/2024 12:41 AM EDT [facility] MCH 30.6 27.0 - 33.0 pg 10/28/2024 12:41 AM EDT [facility] MCHC 34.8 32.0 - 36.0 g/dL 10/28/2024 12:41 AM EDT [facility] RDW 19.6(H) 11.0 - 15.0 % 10/28/2024 12:41 AM EDT [facility] Platelets 45(L) 140 - 400 10E3/uL 10/28/2024 12:41 AM EDT [facility] Comment: CNV Specimen checked for clots. None detected. MPV 7.8 7.5 - 11.5 fL 10/28/2024 12:41 AM EDT [facility] Whole Blood 10/28/2024 12:0 5 AM EDT 10/28/2024 12:11 AM EDT Kemar Sahni MD LAB BLOOD ORDERABLES Final Result [facility] [address] * (ABNORMAL) POC Glucose Monitoring Device (10/28/2024 12:03 AM EDT) POC Glucose Monitoring Device 122(H) 70 - 100 mg/dL 10/28/2024 12:04 AM EDT [facility] Blood 10/28/2024 12:0 3 AM EDT 10/28/2024 12:04 AM EDT Harvey Domínguez III, MD POINT OF CARE TEST ORDERABLES Final Result [facility] [address] [facility]. [address] * (ABNORMAL) POC Glucose Monitoring Device (10/27/2024 10:03 PM EDT) POC Glucose Monitoring Device 127(H) 70 - 100 mg/dL 10/27/2024 10:03 PM EDT [facility] Blood 10/27/2024 10:0 3 PM EDT 10/27/2024 10:03 PM EDT us Harvey Domínguez III, MD POINT OF CARE TEST ORDERABLES Final Result [facility] [address] [place] [facility]. [address] * (ABNORMAL) POC Glucose Monitoring Device (10/27/2024 8:06 PM EDT) POC Glucose Monitoring Device 128(H) 70 - 100 mg/dL 10/27/2024 8:45 PM EDT [facility] Blood 10/27/2024 8:06 PM EDT 10/27/2024 8:45 PM EDT us Harvey Domínguez III, MD POINT OF CARE TEST ORDERABLES Final Result [facility] [address] [facility]. [address] * (ABNORMAL) POC Glucose Monitoring Device (10/27/2024 6:00 PM EDT) POC Glucose Monitoring Device 128(H) 70 - 100 mg/dL 10/27/2024 6:00 PM EDT [facility] Blood 10/27/2024 6:00 PM EDT 10/27/2024 6:00 PM EDT us Harvey Domínguez III, MD POINT OF CARE TEST ORDERABLES Final Result [facility] [address] * Lactic Acid, STAT (10/27/2024 5:41 PM EDT) Lactate 0.5 0.5 - 2.2 mmol/L 10/27/2024 6:28 PM EDT [facility] Plasma 10/27/2024 5:41 PM EDT 10/27/2024 5:49 PM EDT Narrative [facility] - 10/27/2024 6:28 PM EDT Redraw us John Moreno MD LAB BLOOD ORDERABLES Final R esult [facility] [address] * (ABNORMAL) Hepatic Function Panel, STAT (10/27/2024 5:13 PM EDT) Total Bilirubin 1.7(H) 0.0 - 1.5 mg/dL 10/27/2024 5:50 PM EDT [facility] Bilirubin, Direct 1.17(H) 0.00 - 0.40 mg/dL 10/27/2024 5:50 PM EDT [facility] AST 60(H) 13 - 39 U/L 10/27/2024 5:50 PM EDT [facility] ALT 134(H) 7 - 52 U/L 10/27/2024 5:50 PM EDT [facility] Alkaline Phosphatase 27(L) 36 - 125 U/L 10/27/2024 5:50 PM EDT [facility] Total Protein 4.1(L) 6.4 - 8.9 g/dL 10/27/2024 5:50 PM EDT [facility] Albumin 2.9(L) 3.5 - 5.7 g/dL 10/27/2024 5:50 PM EDT [facility] Bilirubin, Indirect 0.53 0.00 - 1.10 mg/dL 10/27/2024 5:50 PM EDT [facility] Plasma 10/27/2024 5:13 PM EDT 10/27/2024 5:23 PM EDT us Shay Plata MD LAB BLOOD ORDERABLES Final Result [facility] [address] [facility]. [address] * (ABNORMAL) TEG-Bypass/ECMO/Liver HN (Factor function, Platelet/Fibrin Clot Strength w/Clot Breakdown, Heparinase In All Channels) (10/27/2024 5:13 PM EDT) Pathologist [facility] Citrated Kaolin Reaction Time (TEGECMOLIVER) 8.0 4.6 - 9.1 minutes 10/27/2024 6:56 PM EDT [facility] Citrated Kaolin W/Heparinase Reaction Time (TEGECMOLIVER) 6.8 4.3 - 8.3 minutes 10/27/2024 6:56 PM EDT [facility] Citrated Kaolin Maximum Amplitude (TEGECMOLIVER) 55.4 52.0 - 69.0 mm 10/27/2024 6:56 PM EDT [facility] Citrated Functional Fibrinogen W/Heparinase Maximum Amplitude(TEGEC MOLIVER) 22.9 15.0 - 34.0 mm 10/27/2024 6:56 PM EDT [facility] Citrated Rapid Teg W/Heparinase Maximum Amplitude (TEGECMOLIVER) 50.8(L) 53.0 - 69.0 mm 10/27/2024 6:56 PM EDT [facility] Citrated Kaolin w/Heparinase Percent Lysis (TEGECMOLIVER) 0.1 0.0 - 3.2 % 10/27/2024 6:56 PM EDT [facility] Whole Blood (Citrate) 10/27/2024 5:13 PM EDT 10/27/2024 5:20 PM EDT us Kemar Sahni MD LAB BLOOD ORDERABLES Final Result [facility] [address] * (ABNORMAL) Protime-INR (10/27/2024 5:13 PM EDT) Protime 15.2(H) 12.1 - 15.1 seconds 10/27/2024 5:40 PM EDT [facility] INR 1.1 0.9 - 1.1 10/27/2024 5:40 PM EDT [facility] Comment: RECOMMENDED THERAPEUTIC RANGES USING INR : Stable oral anticoagulant therapy: 2.0 - 3.0 Mechanical prosthetic heart valve: 2.5 - 3.5 Recurrent acute myocardial infarction: 2.5 - 3.5 Plasma 10/27/2024 5:13 PM EDT 10/27/2024 5:23 PM EDT Kemar Sahni MD LAB BLOOD ORDERABLES Final Result Performing Organization Address City/[facility]/ZIP Co de Phone Number [facility] [address] [facility]. [address] * Magnesium (10/27/2024 5:13 PM EDT) Pathologist [facility] Magnesium 2.4 1.5 - 2.5 mg/dL 10/27/2024 5:53 PM EDT [facility] Plasma 10/27/2024 5:13 PM EDT 10/27/2024 5:23 PM EDT Kemar Sahni MD LAB BLOOD ORDERABLES Final Result [facility] [address] [facility]. [address] * (ABNORMAL) Hepatic Function Panel (10/27/2024 5:13 PM EDT) Pathologist [facility] Total Bilirubin 1.7(H) 0.0 - 1.5 mg/dL 10/27/2024 5:53 PM EDT [facility] Bilirubin, Direct 1.10(H) 0.00 - 0.40 mg/dL 10/27/2024 5:53 PM EDT [facility] AST 62(H) 13 - 39 U/L 10/27/2024 5:53 PM EDT [facility] ALT 134(H) 7 - 52 U/L 10/27/2024 5:53 PM EDT [facility] Alkaline Phosphatase 27(L) 36 - 125 U/L 10/27/2024 5:53 PM EDT [facility] Total Protein 4.1(L) 6.4 - 8.9 g/dL 10/27/2024 5:53 PM EDT [facility] Albumin 2.9(L) 3.5 - 5.7 g/dL 10/27/2024 5:53 PM EDT [facility] Bilirubin, Indirect 0.60 0.00 - 1.10 mg/dL 10/27/2024 5:53 PM EDT [facility] Plasma 10/27/2024 5:13 PM EDT 10/27/2024 5:23 PM EDT Kemar Sahni MD LAB BLOOD ORDERABLES Final Result [facility] [address] * (ABNORMAL) Renal Function Panel w/EGFR (10/27/2024 5:13 PM EDT) Sodium 142 133 - 146 mmol/L 10/27/2024 5:53 PM EDT [facility] Potassium 3.4(L) 3.5 - 5.3 mmol/L 10/27/2024 5:53 PM EDT [facility] Chloride 109 98 - 110 mmol/L 10/27/2024 5:53 PM EDT [facility] CO2 22 21 - 33 mmol/L 10/27/2024 5:53 PM EDT [facility] Anion Gap 11 3 - 16 mmol/L 10/27/2024 5:53 PM EDT [facility] BUN 61(H) 7 - 25 mg/dL 10/27/2024 5:53 PM EDT [facility] Creatinine 2.42(H) 0.60 - 1.30 mg/dL 10/27/2024 5:53 PM EDT [facility] Glucose 125(H) 70 - 100 mg/dL 10/27/2024 5:53 PM EDT [facility] Calcium 8.8 8.6 - 10.3 mg/dL 10/27/2024 5:53 PM EDT [facility] Phosphorus 5.7(H) 2.1 - 4.7 mg/dL 10/27/2024 5:53 PM EDT [facility] Albumin 2.9(L) 3.5 - 5.7 g/dL 10/27/2024 5:53 PM EDT [facility] Osmolality, Calculated 313(H) 278 - 305 mOsm/kg 10/27/2024 5:53 PM EDT [facility] EGFR 34 10/27/2024 5:53 PM EDT [facility] Comment:As of 2021, the [...] LAB BLOOD ORDERABLES Final Result [facility] [address] [id number] * (ABNORMAL) CBC (10/27/2024 5:13 PM EDT) WBC 4.9 3.8 - 10.8 10E3/uL 10/27/2024 6:14 PM EDT [facility] RBC 2.44(L) 4.20 - 5.80 10E6/uL 10/27/2024 6:14 PM EDT [facility] Hemoglobin 7.4(L) 13.2 - 17.1 g/dL 10/27/2024 6:14 PM EDT [facility] Hematocrit 21.4(L) 38.5 - 50.0 % 10/27/2024 6:14 PM EDT [facility] MCV 87.6 80.0 - 100.0 fL 10/27/2024 6:14 PM EDT [facility] MCH 30.3 27.0 - 33.0 pg 10/27/2024 6:14 PM EDT [facility] MCHC 34.6 32.0 - 36.0 g/dL 10/27/2024 6:14 PM EDT [facility] RDW 19.6(H) 11.0 - 15.0 % 10/27/2024 6:14 PM EDT [facility] Platelets 47(L) 140 - 400 10E3/uL 10/27/2024 6:14 PM EDT [facility] Comment: CNV Specimen checked for clots. None detected. MPV 8.1 7.5 - 11.5 fL 10/27/2024 6:14 PM EDT [facility] Whole Blood 10/27/2024 5:13 PM EDT 10/27/2024 5:23 PM EDT us Kemar Sahni MD LAB BLOOD ORDERABLES Final Result [facility] [address] * (ABNORMAL) POC Glucose Monitoring Device (10/27/2024 3:57 PM EDT) [facility] POC Glucose Monitoring Device 131(H) 70 - 100 mg/dL 10/27/2024 3:58 PM EDT [facility] Blood 10/27/2024 3:57 PM EDT 10/27/2024 3:58 PM EDT us Harvey Domínguez III, MD POINT OF CARE TEST ORDERABLES Final Result [facility] [address] * (ABNORMAL) CBC, STAT (10/27/2024 2:40 PM EDT) WBC 5.8 3.8 - 10.8 10E3/uL 10/27/2024 2:54 PM EDT [facility] RBC 2.43(L) 4.20 - 5.80 10E6/uL 10/27/2024 2:54 PM EDT [facility] Hemoglobin 7.5(L) 13.2 - 17.1 g/dL 10/27/2024 2:54 PM EDT [facility] Hematocrit 21.5(L) 38.5 - 50.0 % 10/27/2024 2:54 PM EDT [facility] MCV 88.2 80.0 - 100.0 fL 10/27/2024 2:54 PM EDT [facility] MCH 30.7 27.0 - 33.0 pg 10/27/2024 2:54 PM EDT [facility] MCHC 34.8 32.0 - 36.0 g/dL 10/27/2024 2:54 PM EDT [facility] RDW 19.1(H) 11.0 - 15.0 % 10/27/2024 2:54 PM EDT [facility] Platelets 50(L) 140 - 400 10E3/uL 10/27/2024 2:54 PM EDT [facility] MPV 7.5 7.5 - 11.5 fL 10/27/2024 2:54 PM EDT [facility] Whole Blood 10/27/2024 2:4 0 PM EDT 10/27/2024 2:44 PM EDT us John Moreno MD LAB BLOOD ORDERABLES Final R esult [facility] [address] [place] [address], [facility] * (ABNORMAL) Blood Gas, Arterial, STAT (10/27/2024 2:40 PM EDT) O2 Sat, Arterial 98 10/27/2024 2:46 PM EDT [facility] FIO2 RA 10/27/2024 2:46 PM EDT [facility] pH, Arterial 7.37 7.35 - 7.45 10/27/2024 2:46 PM EDT [facility] pCO2, Arterial 35 35 - 45 mm Hg 10/27/2024 2:46 PM EDT [facility] pO2, Arterial 92 80 - 100 mm Hg 10/27/2024 2:46 PM EDT [facility] HCO3, Arterial 21(L) 22 - 26 mmol/L 10/27/2024 2:46 PM EDT [facility] CO2 Content,Arteri al 21(L) 23 - 27 mmol/L 10/27/2024 2:46 PM EDT [facility] Base Excess, Arterial -4.6(L) -2.0 - 3.0 mmol/L 10/27/2024 2:46 PM EDT [facility] %HBO2, Arterial 95.4 95.0 - 98.0 % 10/27/2024 2:46 PM EDT [facility] Carboxyhemoglo bin, Arterial 1.6 % 10/27/2024 2:46 PM EDT [facility] Comment: CARBOXYHEMOGLOBIN (CO) REFERENCE RANGES: Non-Smokers: <2 % Smokers: <8 % TOXIC: >20 % Methemoglobin, Arterial 1.0 0.0 - 1.5 % 10/27/2024 2:46 PM EDT [facility] Reduced hemoglobin, Arterial 2.1 0.0 - 5.0 % 10/27/2024 2:46 PM EDT [facility] Blood, Arterial 10/27/2024 2 :40 PM EDT 10/27/2024 2:44 PM EDT Narrative [facility] - 10/27/2024 2:46 PM EDT Post extubation us John Moreno MD LAB BLOOD ORDERABLES Final R esult [facility] [address] [place] [address], [facility] * (ABNORMAL) POC Glucose Monitoring Device (10/27/2024 2:06 PM EDT) POC Glucose Monitoring Device 134(H) 70 - 100 mg/dL 10/27/2024 2:06 PM EDT [facility] Blood 10/27/2024 2:06 PM EDT 10/27/2024 2:06 PM EDT Harvey Domínguez III, MD POINT OF CARE TEST ORDERABLES Final Result [facility] [address] [place] [address], [facility] * (ABNORMAL) Blood gas, arterial (10/27/2024 12:35 PM EDT) O2 Sat, Arterial 99 10/27/2024 12:46 PM EDT [facility] FIO2 SBT 30% 10/27/2024 12:46 PM EDT [facility] pH, Arterial 7.35 7.35 - 7.45 10/27/2024 12:46 PM EDT [facility] pCO2, Arterial 37 35 - 45 mm Hg 10/27/2024 12:46 PM EDT [facility] pO2, Arterial 182(H) 80 - 100 mm Hg 10/27/2024 12:46 PM EDT [facility] HCO3, Arterial 21(L) 22 - 26 mmol/L 10/27/2024 12:46 PM EDT [facility] CO2 Content,Arteri al 22(L) 23 - 27 mmol/L 10/27/2024 12:46 PM EDT [facility] Base Excess, Arterial -4.8(L) -2.0 - 3.0 mmol/L 10/27/2024 12:46 PM EDT [facility] %HBO2, Arterial 96.3 95.0 - 98.0 % 10/27/2024 12:46 PM EDT [facility] Carboxyhemoglo bin, Arterial 1.7 % 10/27/2024 12:46 PM EDT [facility] Comment: CARBOXYHEMOGLOBIN (CO) REFERENCE RANGES: Non-Smokers: <2 % Smokers: <8 % TOXIC: >20 % Methemoglobin, Arterial 1.4 0.0 - 1.5 % 10/27/2024 12:46 PM EDT [facility] Reduced hemoglobin, Arterial 0.6 0.0 - 5.0 % 10/27/2024 12:46 PM EDT [facility] Blood, Arterial 10/27/2024 1 2:35 PM EDT 10/27/2024 12:42 PM EDT Narrative [facility] - 10/27/2024 12:46 PM EDT Please obtain post SBT Shay Sifuentes MD LAB BLOOD ORDERABLES Final Resu lt [facility] [address] * (ABNORMAL) TEG-Bypass/ECMO/Liver HN (Factor function, Platelet/Fibrin Clot Strength w/Clot Breakdown, Heparinase In All Channels) (10/27/2024 12:07 PM EDT) [facility] Citrated Kaolin Reaction Time (TEGECMOLIVER) 7.9 4.6 - 9.1 minutes 10/27/2024 1:24 PM EDT [facility] Citrated Kaolin W/Heparinase Reaction Time (TEGECMOLIVER) 8.3 4.3 - 8.3 minutes 10/27/2024 1:24 PM EDT [facility] Citrated Kaolin Maximum Amplitude (TEGECMOLIVER) 52.0 52.0 - 69.0 mm 10/27/2024 1:24 PM EDT [facility] Citrated Functional Fibrinogen W/Heparinase Maximum Amplitude(TEGEC MOLIVER) 20.1 15.0 - 34.0 mm 10/27/2024 1:24 PM EDT [facility] Citrated Rapid Teg W/Heparinase Maximum Amplitude (TEGECMOLIVER) 49.4(L) 53.0 - 69.0 mm 10/27/2024 1:24 PM EDT [facility] Citrated Kaolin w/Heparinase Percent Lysis (TEGECMOLIVER) 0.0 0.0 - 3.2 % 10/27/2024 1:24 PM EDT [facility] Whole Blood (Citrate) 10/27/2024 12:07 PM EDT 10/27/2024 12:09 PM EDT Kemar Sahni MD LAB BLOOD ORDERABLES Final Result [facility] [address] * (ABNORMAL) POC Glucose Monitoring Device (10/27/2024 12:01 PM EDT) POC Glucose Monitoring Device 121(H) 70 - 100 mg/dL 10/27/2024 12:02 PM EDT [facility] Blood 10/27/2024 12:0 1 PM EDT 10/27/2024 12:01 PM EDT Harvey Domínguez III, MD POINT OF CARE TEST ORDERABLES Final Result [facility] [address] * (ABNORMAL) POC Glucose Monitoring Device (10/27/2024 10:59 AM EDT) POC Glucose Monitoring Device 126(H) 70 - 100 mg/dL 10/27/2024 11:10 AM EDT [facility] Blood 10/27/2024 10:5 9 AM EDT 10/27/2024 11:10 AM EDT Harvey Domínguez III, MD POINT OF CARE TEST ORDERABLES Final Result [facility] [address] [facility]. [address] * ECG 12 lead (MUSE) (10/27/2024 10:17 AM EDT) 10/27/2024 10:1 7 AM EDT Narrative MUSE - 10/27/2024 2:51 PM EDT Ventricular Rate: 91 BPM Atrial Rate: 91 BPM P-R Interval: 168 ms QRS Duration: 90 ms QT: 274 ms QTc: 337 ms P [place]: 60 degrees R [place]: -30 degrees T [place]: -15 degrees Diagnosis Line: NORMAL SINUS RHYTHM ^ LEFT AXIS DEVIATION, LEFT ANTERIOR HEMIBLOCK ^ NONSPECIFIC T WAVE CHANGE ^ ABNORMAL ECG ^ ^ Confirmed by MD ROLLY, OMAR ([id number]) on 10/27/2024 2:51:52 PM Shay Sifuentes MD ECG ORDERABLES Final Result MUSE * (ABNORMAL) POC Glucose Monitoring Device (10/27/2024 10:00 AM EDT) POC Glucose Monitoring Device 121(H) 70 - 100 mg/dL 10/27/2024 10:01 AM EDT [facility] Blood 10/27/2024 10:0 0 AM EDT 10/27/2024 10:01 AM EDT Harvey Domínguez III, MD POINT OF CARE TEST ORDERABLES Final Result Performing Organization Address City/[facility] Co de Phone Number [facility] [address] * US Renal Transplant (10/27/2024 9:51 AM [...] US ORDERABLES Final Result * US Duplex Izc-Asb-Iogilln Comp (10/27/2024 9:51 AM EDT) Anatomical Region [...] EXAM: US ABDOMEN LIMITED EXAM: US DUPLEX [id number] COMPLETE INDICATION: Post-op liver transplant COMPARISON: None [...] absent.. Pancreas: Obscured by overlying bowel gas. [place] right kidney: 12.5 cm in length. Normal [...] EXAM: US ABDOMEN LIMITED EXAM: US DUPLEX [id number] COMPLETE INDICATION: Post-op liver transplant COMPARISON: None [...] absent.. Pancreas: Obscured by overlying bowel gas. [place] right kidney: 12.5 cm in length. Normal [...] flow. Waveformswithin normal limits. Report Verified by: Alberot Rodriguez MD at 10/27/2024 10:38 AM EDT [...] EXAM: US ABDOMEN LIMITED EXAM: US DUPLEX [id number] COMPLETE INDICATION: Post-op liver transplant COMPARISON: None [...] absent.. Pancreas: Obscured by overlying bowel gas. [place] right kidney: 12.5 cm in length. Normal [...] EXAM: US ABDOMEN LIMITED EXAM: US DUPLEX [id number] COMPLETE INDICATION: Post-op liver transplant COMPARISON: None [...] absent.. Pancreas: Obscured by overlying bowel gas. [place] right kidney: 12.5 cm in length. Normal [...] CARE TEST ORDERABLES Final Result [facility] [address] * X-ray Portable Chest (10/27/2024 8:58 AM [...] - 15.1 seconds 10/27/2024 8:35 AM EDT [facility] INR 1.2(H) 0.9 - 1.1 10/27/2024 8:35 AM EDT [facility] Comment: RECOMMENDED THERAPEUTIC RANGES USING INR : Stable oral anticoagulant therapy: 2.0 - 3.0 Mechanical prosthetic heart valve: 2.5 - 3.5 Recurrent acute myocardial infarction: 2.5 - 3.5 Plasma 10/27/2024 8:16 AM EDT 10/27/2024 8:20 AM EDT us John Moreno MD LAB BLOOD ORDERABLES Final R esult [facility] [address] * Magnesium (10/27/2024 8:00 AM EDT) Magnesium 1.8 1.5 - 2.5 mg/dL 10/27/2024 10:50 AM EDT [facility] Plasma 10/27/2024 8:00 AM EDT 10/27/2024 10:31 AM EDT Kemar Sahni MD LAB BLOOD ORDERABLES Final Result [facility] [address] * (ABNORMAL) Renal Function Panel w/EGFR (10/27/2024 8:00 AM EDT) Sodium 142 133 - 146 mmol/L 10/27/2024 10:18 AM EDT [facility] Potassium 3.0(L) 3.5 - 5.3 mmol/L 10/27/2024 10:18 AM EDT [facility] Chloride 109 98 - 110 mmol/L 10/27/2024 10:18 AM EDT [facility] CO2 21 21 - 33 mmol/L 10/27/2024 10:18 AM EDT [facility] Anion Gap 12 3 - 16 mmol/L 10/27/2024 10:18 AM EDT [facility] BUN 59(H) 7 - 25 mg/dL 10/27/2024 10:18 AM EDT [facility] Creatinine 2.54(H) 0.60 - 1.30 mg/dL 10/27/2024 10:18 AM EDT [facility] Glucose 111(H) 70 - 100 mg/dL 10/27/2024 10:18 AM EDT [facility] Calcium 9.1 8.6 - 10.3 mg/dL 10/27/2024 10:18 AM EDT [facility] Phosphorus 5.5(H) 2.1 - 4.7 mg/dL 10/27/2024 10:18 AM EDT [facility] Albumin 3.0(L) 3.5 - 5.7 g/dL 10/27/2024 10:18 AM EDT [facility] Osmolality, Calculated 311(H) 278 - 305 mOsm/kg 10/27/2024 10:18 AM EDT [facility] EGFR 32 10/27/2024 10:18 AM EDT [facility] Comment:As of 2021, the [...] LAB BLOOD ORDERABLES Final Result [facility] [address] * (ABNORMAL) Hepatic Function Panel, STAT (10/27/2024 8:00 AM EDT) Total Bilirubin 1.3 0.0 - 1.5 mg/dL 10/27/2024 8:51 AM EDT [facility] Bilirubin, Direct 0.93(H) 0.00 - 0.40 mg/dL 10/27/2024 8:51 AM EDT [facility] AST 88(H) 13 - 39 U/L 10/27/2024 8:51 AM EDT [facility] ALT 149(H) 7 - 52 U/L 10/27/2024 8:51 AM EDT [facility] Alkaline Phosphatase 26(L) 36 - 125 U/L 10/27/2024 8:51 AM EDT [facility] Total Protein 4.0(L) 6.4 - 8.9 g/dL 10/27/2024 8:51 AM EDT [facility] Albumin 3.0(L) 3.5 - 5.7 g/dL 10/27/2024 8:51 AM EDT [facility] Bilirubin, Indirect 0.37 0.00 - 1.10 mg/dL 10/27/2024 8:51 AM EDT [facility] Plasma 10/27/2024 8:00 AM EDT 10/27/2024 8:20 AM EDT Harvey Domínguez III, MD LAB BLOOD ORDERABLE S Final Result Performing Organization Address [facility] Co de Phone Number [facility] [address] * (ABNORMAL) Lactic Acid, STAT (10/27/2024 8:00 AM EDT) Lactate 0.4(L) 0.5 - 2.2 mmol/L 10/27/2024 8:43 AM EDT [facility] Plasma 10/27/2024 8:00 AM EDT 10/27/2024 8:20 AM EDT us Harvey Domínguez III, MD LAB BLOOD ORDERABLE S Final Result Performing Organization Address [facility] de Phone Number [facility] [address] [facility]. [address] * (ABNORMAL) Blood Gas, Arterial, STAT (10/27/2024 8:00 AM EDT) O2 Sat, Arterial 100 10/27/2024 8:23 AM EDT [facility] pH, Arterial 7.36 7.35 - 7.45 10/27/2024 8:23 AM EDT [facility] pCO2, Arterial 37 35 - 45 mm Hg 10/27/2024 8:23 AM EDT [facility] pO2, Arterial 245(H) 80 - 100 mm Hg 10/27/2024 8:23 AM EDT [facility] HCO3, Arterial 22 22 - 26 mmol/L 10/27/2024 8:23 AM EDT [facility] CO2 Content,Arteri al 22(L) 23 - 27 mmol/L 10/27/2024 8:23 AM EDT [facility] Base Excess, Arterial -4.2(L) -2.0 - 3.0 mmol/L 10/27/2024 8:23 AM EDT [facility] %HBO2, Arterial 96.5 95.0 - 98.0 % 10/27/2024 8:23 AM EDT [facility] Carboxyhemoglo bin, Arterial 2.2 % 10/27/2024 8:23 AM EDT [facility] Comment: CARBOXYHEMOGLOBIN (CO) REFERENCE RANGES: Non-Smokers: <2 % Smokers: <8 % TOXIC: >20 % Methemoglobin, Arterial 1.2 0.0 - 1.5 % 10/27/2024 8:23 AM EDT [facility] Reduced hemoglobin, Arterial 0.0 0.0 - 5.0 % 10/27/2024 8:23 AM EDT [facility] Blood, Arterial 10/27/2024 8 :00 AM EDT 10/27/2024 8:19 AM EDT Narrative [facility] - 10/27/2024 8:23 AM EDT Specimen is beyond 15 minutes from time of collection. Results may be compromised. Review results critically. us Kemar Sahni MD LAB BLOOD ORDERABLES Final Result Performing Organization Address City/State/[facility] Co de Phone Number [facility] [address] [id number] * (ABNORMAL) TEG-Bypass/ECMO/Liver HN (Factor function, Platelet/Fibrin Clot Strength w/Clot Breakdown, Heparinase In All Channels) (10/27/2024 8:00 AM EDT) Citrated Kaolin Reaction Time (TEGECMOLIVER) 7.8 4.6 - 9.1 minutes 10/27/2024 9:39 AM EDT [facility] Citrated Kaolin W/Heparinase Reaction Time (TEGECMOLIVER) 8.0 4.3 - 8.3 minutes 10/27/2024 9:39 AM EDT [facility] Citrated Kaolin Maximum Amplitude (TEGECMOLIVER) 52.7 52.0 - 69.0 mm 10/27/2024 9:39 AM EDT [facility] Citrated Functional Fibrinogen W/Heparinase Maximum Amplitude(TEGEC MOLIVER) 19.0 15.0 - 34.0 mm 10/27/2024 9:39 AM EDT [facility] Citrated Rapid Teg W/Heparinase Maximum Amplitude (TEGECMOLIVER) 49.5(L) 53.0 - 69.0 mm 10/27/2024 9:39 AM EDT [facility] Citrated Kaolin w/Heparinase Percent Lysis (TEGECMOLIVER) 0.0 0.0 - 3.2 % 10/27/2024 9:39 AM EDT [facility] Whole Blood (Citrate) 10/27/2024 8:00 AM EDT 10/27/2024 8:19 AM EDT Kemar Sahni MD LAB BLOOD ORDERABLES Final Result [facility] [address] * (ABNORMAL) Katie-Watkins virus VCA IgG Antibody (10/27/2024 8:00 AM EDT) EBV VCA IgG Positive( A) Negative 10/27/2024 11:30 AM EDT [facility] Comment:Presence of detectab le VCA IgG antibodies. 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 EBV IGG NUM 314.00(H) 0.00 - 17.99 U/mL 10/27/2024 11:30 AM EDT [facility] Serum 10/27/2024 8:00 AM EDT 10/27/2024 8:20 AM EDT Kemar Sahni MD LAB BLOOD ORDERABLES Final Result [facility] [address] * Hemoglobin A1c (10/27/2024 8:00 AM EDT) Hemoglobin A1C 5.0 4.0 - 5.6 % 10/27/2024 11:12 AM EDT [facility] Comment: Hemoglobin A1c Interpretation [...] LAB BLOOD ORDERABLES Final Result [facility] [address] [facility]. [address] * (ABNORMAL) POC Glucose Monitoring Device (10/27/2024 7:59 AM EDT) POC Glucose Monitoring Device 113(H) 70 - 100 mg/dL 10/27/2024 7:59 AM EDT [facility] Blood 10/27/2024 7:59 AM EDT 10/27/2024 7:59 AM EDT Harvey Domínguez III, MD POINT OF CARE TEST ORDERABLES Final Result [facility] [address] [facility]. [address] * X-ray Abdomen AP view (10/27/2024 [...] Units (10/27/2024 6:16 AM EDT) Product Code C3543D95 HCLL Unit Number [id number] HCLL Dispense Status Presumed Transfused_PT HCLL Blood Expiration Date HCLL Coding System [id number] HCLL Product Code T2649L77 HCLL Unit Number [id number] HCLL Dispense Status Presumed Transfused_PT HCLL Blood Expiration Date [id number] HCLL Coding System [id number] HCLL Blood Bank Product us John Pina MD BLOOD BANK PRODUCT ORDERABLES F inal Result Performing Organization Address City/[facility]/ZIP Co de Phone Number HCLL * Prepare Platelets, leukoreduced, 1 Units (10/27/2024 6:16 AM EDT) Product Code I2111M72 HCLL Unit Number [id number] HCLL Dispense Status Presumed Transfused_PT HCLL Blood Expiration Date 602343560028 HCLL Coding System VIOU179 HCLL Blood Bank Product Eber Quinones MD BLOOD BANK PRODUCT ORDER PAL Final Result HCLL * Prepare Cryoprecipitate, 1 Units (10/27/2024 6:16 AM EDT) Product Code W0870P86 HCLL Unit Number [id number] HCLL Dispense Status Presumed Transfused_PT HCLL Blood Expiration Date HCLL Coding System KFPO280 HCLL Product Code H7107R13 HCLL Unit Number [id number] HCLL Dispense Status Presumed Transfused_PT HCLL Blood Expiration Date HCLL Coding System GSCQ707 HCLL Blood Bank Product Eber Quinones MD BLOOD BANK PRODUCT ORDER PAL Final Result HC[facility] * Prepare Fresh Frozen Plasma, 10 Units (10/27/2024 6:16 AM EDT) Product Code J6553C65 HCLL Unit Number [id number] HCLL Dispense Status Presumed Transfused_PT HCLL Blood Expiration Date HCLL Coding System LOLE286 HCLL Product Code S1647L87 HCLL Unit Number [id number] HCLL Dispense Status Presumed Transfused_PT HCLL Blood Expiration Date HCLL Coding System MZCQ819 HCLL Product Code B2762W94 HCLL Unit Number [id number] HCLL Dispense Status Presumed Transfused_PT HCLL Blood Expiration Date HCLL Coding System ERFT107 HCLL Product Code H6770T29 HCLL Unit Number [id number] HCLL Dispense Status Presumed Transfused_PT HCLL Blood Expiration Date HCLL Coding System IUAA218 HCLL Product Code W2810A56 HCLL Unit Number [id number] HCLL Dispense Status Released from Crossmatch_RE HCLL Blood Expiration Date 791239390621 HCLL Coding System CLST828 HCLL Product Code D1843K54 HCLL Unit Number [id number] HCLL Dispense Status Released from Crossmatch_RE HCLL Blood Expiration Date 524045076944 HCLL Coding System WJHB596 HCLL Product Code D9417O95 HCLL Unit Number [id number] HCLL Dispense Status Presumed Transfused_PT HCLL Blood Expiration Date HCLL Coding System WRHS819 HCLL Product Code D0813O25 HCLL Unit Number [id number] HCLL Dispense Status Presumed Transfused_PT HCLL Blood Expiration Date HCLL Coding System PHLJ495 HCLL Product Code W1374E68 HCLL Unit Number [id number] HCLL Dispense Status Presumed Transfused_PT HCLL Blood Expiration Date 577140714003 HCLL Coding System UJBW253 HCLL Product Code L3712E20 HCLL Unit Number [id number] HCLL Dispense Status Presumed Transfused_PT HCLL Blood Expiration Date HCLL Coding System QTUN350 HCLL Blood Bank Product Leandra Og MD BLOOD BANK PRODUCT ORD ERABLES Final Result HCLL * Prepare Platelets, leukoreduced, 1 Units (10/27/2024 6:16 AM EDT) Product Code I7544I60 HCLL Unit Number [id number] HCLL Dispense Status Presumed Transfused_PT HCLL Blood Expiration Date 238561707338 HCLL Coding System LFMT943 HCLL Blood Bank Product Ben Blake MD BLOOD BANK PRODUCT ORDERABLES Final Result Performing Organization Address [facility] Co de Phone Number HCLL * Prepare Fresh Frozen Plasma (10/27/2024 6:15 AM EDT) Product Code Y7065X56 HCLL Unit Number [id number] HCLL Dispense Status Presumed Transfused_PT HCLL Blood Expiration Date HCLL Coding System NZFE502 HCLL Product Code Q4801F78 HCLL Unit Number [id number] HCLL Dispense Status Released from Crossmatch_RE HCLL Blood Expiration Date HCLL Coding System MSNN130 HCLL Product Code Y4406F13 HCLL Unit Number [id number] HCLL Dispense Status Presumed Transfused_PT HCLL Blood Expiration Date HCLL Coding System PIHW384 HCLL Product Code U8529E43 HCLL Unit Number [id number] HCLL Dispense Status Presumed Transfused_PT HCLL Blood Expiration Date HCLL Coding System EGQL043 HCLL Product Code D8027A75 HCLL Unit Number [id number] HCLL Dispense Status Released from Crossmatch_RE HCLL Blood Expiration Date HCLL Coding System LHRK884 HCLL us Attending Provider Unknown BLOOD BANK PRODUCT OR DERABLES Final Result Performing Organization Address City/[facility]/ZIP Co de Phone Number HCLL * Prepare RBC, leukoreduced (10/27/2024 6:15 AM EDT) Product Code W7222D01 HCLL Unit Number [id number] HCLL Dispense Status Presumed Transfused_PT HCLL Blood Expiration Date HCLL Coding System PASZ136 HCLL Product Code T3751D68 HCLL Unit Number [id number] HCLL Dispense Status Released from Crossmatch_RE HCLL Blood Expiration Date HCLL Coding System QRRJ190 HCLL Product Code F6960P06 HCLL Unit Number [id number] HCLL Dispense Status Released from Crossmatch_RE HCLL Blood Expiration Date 047103496819 HCLL Coding System BUOD320 HCLL Product Code E9138P99 HCLL Unit Number [id number] HCLL Dispense Status Released from Crossmatch_RE HCLL Blood Expiration Date 364369004004 HCLL Coding System HOKF411 HCLL Product Code E2309S68 HCLL Unit Number [id number] HCLL Dispense Status Released from Crossmatch_RE HCLL Blood Expiration Date 609658634243 HCLL Coding System ZEMJ852 HCLL us Attending Provider Unknown BLOOD BANK PRODUCT OR DERABLES Final Result HC[facility] * Prepare RBC, leukoreduced, 10 Units (10/27/2024 6:15 AM EDT) Product Code K0218A57 HCLL Unit Number [id number] HCLL Dispense Status Presumed Transfused_PT HCLL Blood Expiration Date 496524021353 HCLL Coding System CZRA183 HCLL Product Code T5862H19 HCLL Unit Number [id number] HCLL Dispense Status Presumed Transfused_PT HCLL Blood Expiration Date 486870333286 HCLL Coding System TTLV695 HCLL Product Code L0774B54 HCLL Unit Number [id number] HCLL Dispense Status Presumed Transfused_PT HCLL Blood Expiration Date 999718623750 HCLL Coding System MCKX264 HCLL Product Code O1102J97 HCLL Unit Number [id number] HCLL Dispense Status Presumed Transfused_PT HCLL Blood Expiration Date HCLL Coding System IVXE816 HCLL Product Code G2016K21 HCLL Unit Number [id number] HCLL Dispense Status Presumed Transfused_PT HCLL Blood Expiration Date 338640878024 HCLL Coding System AKSR072 HCLL Product Code P3737P83 HC[facility] Unit Number [id number] [facility] Dispense Status Presumed Transfused_PT [facility] Blood Expiration Date [id number] [facility] Coding System [id number] [facility] Product Code T1436I94 [facility] Unit Number [id number] [facility] Dispense Status Presumed Transfused_PT [facility] Blood Expiration Date [id number] [facility] Coding System [id number] [facility] Product Code W0194A92 [facility] Unit Number [id number] [facility] Dispense Status Presumed Transfused_PT [facility] Blood Expiration Date [id number] [facility] Coding System [id number] [facility] Product Code Q9512S88 [facility] Unit Number [id number] [facility] Dispense Status Presumed Transfused_PT [facility] Blood Expiration Date [facility] Coding System [id number] [facility] Product Code M9325B61 [facility] Unit Number [id number] [facility] Dispense Status Presumed Transfused_PT [facility] Blood Expiration Date [facility] Coding System [id number] [facility] Blood Bank Product Leandra Og MD BLOOD BANK PRODUCT ORD ERABLES Final Result [facility] * Transfuse Platelets (10/27/2024 6:09 AM EDT) Ben Blake MD NURSING TREATMENT ORDERABLES - BLOOD ADMIN Final Result * (ABNORMAL) Arterial Blood Gas Panel (10/27/2024 6:09 AM EDT) O2Sat (ABGP) 100 10/27/2024 6:17 AM EDT [facility] pH (ABGP) 7.30(L) 7.35 - 7.45 10/27/2024 6:17 AM EDT [facility] PCO2 (ABGP) 41 35 - 45 mm Hg 10/27/2024 6:17 AM EDT [facility] PO2 (ABGP) 192(H) 80 - 100 mm Hg 10/27/2024 6:17 AM EDT [facility] [facility] HCO3 (ABGP) 21(L) 22 - 26 mmol/L 10/27/2024 6:17 AM EDT [facility] CO2 Content (ABGP) 22(L) 23 - 27 mmol/L 10/27/2024 6:17 AM EDT [facility] Base Excess (ABGP) -5.7(L) -2.0 - 3.0 mmol/L 10/27/2024 6:17 AM EDT [facility] Sodium (ABGP) 138 136 - 146 mEq/L 10/27/2024 6:17 AM EDT [facility] Potassium (ABGP) 3.3(L) 3.5 - 5.0 mEq/L 10/27/2024 6:17 AM EDT [facility] Comment:In the event of in-v itro hemolysis, potassium results may be falsely elevated. Always interpret lab results in conjunction with clinical findings. If hemolysis is suspected, a serum sample may be collected for repeat assessment of potassium. Calcium, Free (ABGP) 5.28 4.50 - 5.30 mg/dL 10/27/2024 6:17 AM EDT [facility] Glucose (ABGP) 112(H) 70 - 100 mg/dL 10/27/2024 6:17 AM EDT [facility] Comment:There is interferenc e with whole blood glucose results on this method when Hematocrit is <25% or >60%. HCT (ABGP) 20.0(L) 40.0 - 52.0 % 10/27/2024 6:17 AM EDT [facility] HGB (ABGP) 6.5(L) 14.0 - 18.0 g/dL 10/27/2024 6:17 AM EDT [facility] %HBO2 (ABGP) 96.8 95.0 - 98.0 % 10/27/2024 6:17 AM EDT [facility] Carboxyhgb (ABGP) 2.1 % 025 6:17 AM EDT [facility] Comment: CARBOXYHEMOGLOBIN (CO) REFERENCE RANGES: Non-Smokers: <2 % Smokers: <8 % TOXIC: >20 % Methemoglobin (ABGP) 1.0 0.0 - 1.5 % 10/27/2024 6:17 AM EDT [facility] Reduced Hemoglobin (ABGP) 0.2 0.0 - 5.0 % 10/27/2024 6:17 AM EDT [facility] Lactic Acid (ABGP) 0.4(L) 0.5 - 1.6 mmol/L 10/27/2024 6:17 AM EDT [facility] Blood, Arterial 10/27/2024 6 :09 AM EDT 10/27/2024 6:14 AM EDT Result [facility] Ben Blake MD LAB BLOOD ORDERABLES Final Re sult [facility] [address] [place] [address], [facility] * Transfuse Fresh Frozen Plasma (10/27/2024 5:49 AM EDT) Result [facility] Ben Blake MD NURSING TREATMENT ORDERABLES - BLOOD ADMIN Final Result * Transfuse Cryoprecipitate (10/27/2024 4:56 AM EDT) Result [facility] Ben Blake MD NURSING TREATMENT ORDERABLES - BLOOD ADMIN Final Result * Transfuse Cryoprecipitate (10/27/2024 4:49 AM EDT) Ben Blake MD NURSING TREATMENT ORDERABLES - BLOOD ADMIN Final Result * (ABNORMAL) POC Glucose Monitoring Device (10/27/2024 4:46 AM EDT) [facility] POC Glucose Monitoring Device 124(H) 70 - 100 mg/dL 10/27/2024 4:47 AM EDT [facility] Blood 10/27/2024 4:46 AM EDT 10/27/2024 4:47 AM EDT Harvey Domínguez III, MD POINT OF CARE TEST ORDERABLES Final Result [facility] [address] * Transfuse Platelets (10/27/2024 4:24 AM [...] O2Sat (ABGP) 100 10/27/2024 3:21 AM EDT [facility] pH (ABGP) 7.32(L) 7.35 - 7.45 10/27/2024 3:21 AM EDT [facility] PCO2 (ABGP) 38 35 - 45 mm Hg 10/27/2024 3:21 AM EDT [facility] PO2 (ABGP) 176(H) 80 - 100 mm Hg 10/27/2024 3:21 AM EDT [facility] HCO3 (ABGP) 20(L) 22 - 26 mmol/L 10/27/2024 3:21 AM EDT [facility] CO2 Content (ABGP) 21(L) 23 - 27 mmol/L 10/27/2024 3:21 AM T [facility] Base Excess (ABGP) -6.0(L) -2.0 - 3.0 mmol/L 10/27/2024 3:21 AM EDT [facility] Sodium (ABGP) 138 136 - 146 mEq/L 10/27/2024 3:21 AM [facility] Potassium (ABGP) 3.0(L) 3.5 - 5.0 mEq/L 10/27/2024 3:21 AM [facility] Comment:In the event of in-v itro hemolysis, potassium results may be falsely elevated. Always interpret lab results in conjunction with clinical findings. If hemolysis is suspected, a serum sample may be collected for repeat assessment of potassium. Calcium, Free (ABGP) 5.28 4.50 - 5.30 mg/dL 10/27/2024 3:21 AM [facility] Glucose (ABGP) 108(H) 70 - 100 mg/dL 10/27/2024 3:21 AM [facility] Comment:There is interferenc e with whole blood glucose results on this method when Hematocrit is <25% or >60%. HCT (ABGP) 22.0(L) 40.0 - 52.0 % 10/27/2024 3:21 AM [facility] HGB (ABGP) 7.3(L) 14.0 - 18.0 g/dL 10/27/2024 3:21 AM [facility] %HBO2 (ABGP) 97.3 95.0 - 98.0 % 10/27/2024 3:21 AM [facility] Carboxyhgb (ABGP) 1.9 % 025 3:21 AM [facility] Comment: CARBOXYHEMOGLOBIN (CO) REFERENCE RANGES: Non-Smokers: <2 % Smokers: <8 % TOXIC: >20 % Methemoglobin (ABGP) 0.8 0.0 - 1.5 % 10/27/2024 3:21 AM [facility] Reduced Hemoglobin (ABGP) 0.0 0.0 - 5.0 % 10/27/2024 3:21 AM [facility] Lactic Acid (ABGP) 0.3(L) 0.5 - 1.6 mmol/L 10/27/2024 3:21 AM EDT [facility] Blood, Arterial 10/27/2024 3 :07 AM EDT 10/27/2024 3:14 AM EDT us Ben Blake MD LAB BLOOD ORDERABLES Final Re sult [facility] [address] [place], [place] [address] * Surgical Pathology Exam (10/27/2024 2:38 AM EDT) Tissue LEFT KIDNEY STRUCTURE / Unknown 10/27/2024 2:38 AM EDT Narrative [facility] - 10/27/2024 12:00 AM EDT CASE: [id number] PATIENT: BLAIR GILBERT Clinical History: Transplant kidney with bile duct reconstruction Pre-Operative Diagnosis: Acute kidney injury superimposed on CKD Post-Operative Diagnosis: None Given Specimen(s) Submitted: A. baseline renal biopsy ; B. right lobe liver biopsy; C. left lobe liver biopsy CPT Code(s): 40283 X 1; 48483 X 2; 55936 X 4 Additional Information: FINAL DIAGNOSIS: A. [...] entirely submitted in cassette [id number]. (NAA Mckeon/rr) B. Received in formalin, [...] between blue biopsy sponges in cassette [id number] C1-C2. (NAA Mckeon/ns) Microscopic Description: I, the attending pathologist, have personally reviewed all prosector/resident work and pathology slides to determine final diagnosis. Control Materials Reacted Appropriately. Final Diagnosis performed by CLARE FALL MD Pathologist Electronically signed 10/31/2024 01:07:09 PM The Pathologist signing this report is located at [facility], [address] [place] [address], Formerly [facility], , CLIA ID: [id number] ADDENDUM: A. Kidney, allograft, baseline, wedge biopsy: [...] signing this report is located at [facility], [address] [place] [address], Formerly [facility], , CLIA ID: [id number] Kemar Sahni MD PATHOLOGY/CYTOLOGY ORDERABL ES Edited Result - Final Performing Organization Address City/[facility]/ZIP Co de Phone Number [facility] * Anaerobic culture (10/27/2024 2:15 AM EDT) Culture Result No Anaerobes Isolated in 5 Days [facility] Fluid SPECIMEN FROM KIDNEY / Unknown 10/27/2024 2:15 AM EDT 10/27/2024 4:24 AM EDT Narrative [facility] - 10/31/2024 11:43 AM EDT 1) perfusate Harvey Domínguez III, MD MICROBIOLOGY - GENE RAL ORDERABLES Final Result Performing Organization Address [facility] Co de Phone Number [facility] [address] [place] [address]. [address] * Fungus culture (10/27/2024 2:15 AM EDT) Culture Result No Fungus Isolated At 4 Weeks [facility] Fluid SPECIMEN FROM KIDNEY / Unknown 10/27/2024 2:15 AM EDT 10/27/2024 4:24 AM EDT Narrative [facility] - 11/24/2024 7:52 AM EDT 1) perfusate Harvey Domínguez III, MD MICROBIOLOGY - GENE RAL ORDERABLES Final Result Performing Organization Address [facility] Co de Phone Number [facility] [address] [facility]. [address] * Routine Culture plus Stain (10/27/2024 2:15 AM EDT) Gram Stain Result No Polymorphonuclear Leukocytes Seen [facility] Gram Stain Result No Organisms Seen; [facility] Culture Result No Growth After 3 Days [facility] Fluid SPECIMEN FROM KIDNEY / Unknown 10/27/2024 2:15 AM EDT 10/27/2024 4:24 AM EDT Narrative [facility] - 10/30/2024 9:26 AM EDT 1) perfusate Harvey Domínguez III, MD MICROBIOLOGY - GENE RAL ORDERABLES Final Result Performing Organization Address City/[facility] Co de Phone Number [facility] [address] [place] [address], [facility] * Transfuse Platelets Transfusion Rate: Per dept routine (10/27/2024 1:52 AM EDT) John Pina MD NURSING TREATMENT ORDERABLES - BLOOD ADMIN Final Result EXTERNAL * Transfuse Platelets Transfusion Rate: Per dept routine, 1 Units (10/27/2024 1:52 AM EDT) John Pina MD NURSING TREATMENT ORDERABLES - BLOOD ADMIN Final Result Performing Organization Address [facility] Co de Phone Number EXTERNAL * (ABNORMAL) TEG-Standard Global Hemostasis (Rapid TEG with Heparin Effect, Contains a Baseline TEG) (10/27/2024 1:51 AM EDT) [facility] Citrated Kaolin Reaction Time (TEGHEPARINASE) 10.6(H) 4.6 - 9.1 minutes 10/27/2024 2:44 AM EDT [facility] Citrated Rapid Teg Maximum Amplitude (TEGHEPARINASE) 42.3(L) 52.0 - 70.0 mm 10/27/2024 2:44 AM EDT [facility] Citrated Functional Fibrinogen Maximum Amplitude (TEGHEPARINASE) 15.0 15.0 - 32.0 mm 10/27/2024 2:44 AM EDT [facility] Citrated Kaolin W/Heparinase Reaction Time (TEGHEPARINASE) 10.5(H) 4.3 - 8.3 minutes 10/27/2024 2:44 AM EDT [facility] Citrated Kaolin K-Time (TEGHEPARINASE) 2.9(A) 0.8 - 2.1 minutes 10/27/2024 2:44 AM EDT [facility] Citrated Kaolin Angle (TEGHEPARINASE) 60.4(A) 63.0 - 78.0 degrees 10/27/2024 2:44 AM EDT [facility] Citrated Kaolin Maximum Amplitude (TEGHEPARINASE) 42.9(L) 52.0 - 69.0 mm 10/27/2024 2:44 AM EDT [facility] Citrated Functional Fibrinogen- Fibrinogen Level (TEGHEPARINASE) 273.7(L) 278.0 - 581.0 mg/dL 10/27/2024 2:44 AM EDT [facility] Whole Blood (Citrate) 10/27/2024 1:51 AM EDT 10/27/2024 2:03 AM EDT us John Pina MD LAB BLOOD ORDERABLES Final Resu lt [facility] [address] * (ABNORMAL) POC Glucose Monitoring Device (10/27/2024 1:50 AM EDT) POC Glucose Monitoring Device 121(H) 70 - 100 mg/dL 10/27/2024 1:51 AM EDT [facility] Blood 10/27/2024 1:50 AM EDT 10/27/2024 1:51 AM EDT Harvey Doímnguez III, MD POINT OF CARE TEST ORDERABLES Final Result Performing Organization Address [facility] Co de Phone Number [facility] [address] * Transfuse Cryoprecipitate Transfusion Rate: Per dept routine (10/27/2024 1:25 AM EDT) us John Pina MD NURSING TREATMENT ORDERABLES - BLOOD ADMIN Final Result EXTERNAL * Transfuse Cryoprecipitate Transfusion Rate: Per dept routine, 1 Units (10/27/2024 1:25 AM EDT) us John Pina MD NURSING TREATMENT ORDERABLES - BLOOD ADMIN Final Result Performing Organization Address City/[facility]/ZIP Co de Phone Number EXTERNAL * (ABNORMAL) POC Glucose Monitoring Device (10/27/2024 1:21 AM EDT) POC Glucose Monitoring Device 123(H) 70 - 100 mg/dL 10/27/2024 1:22 AM EDT [facility] Blood 10/27/2024 1:21 AM EDT 10/27/2024 1:21 AM EDT us Harvey Domínguez III, MD POINT OF CARE TEST ORDERABLES Final Result Performing Organization Address City/[facility]/ZIP Co de Phone Number [facility] [address] * Transfuse Fresh Frozen Plasma Transfusion Rate: Per dept routine (10/27/2024 1:03 AM EDT) us John Pina MD NURSING TREATMENT ORDERABLES - BLOOD ADMIN Final Result Performing Organization Address City/[facility] de Phone Number EXTERNAL * Transfuse Fresh Frozen Plasma Transfusion Rate: Per dept routine, 1 Units (10/27/2024 1:03 AM EDT) us John Pina MD NURSING TREATMENT ORDERABLES - BLOOD ADMIN Final Result Performing Organization Address City/[facility] de Phone Number EXTERNAL * Calcium Free, Serum (10/27/2024 12:13 AM EDT) Free Calcium, Ser 5.20 4.40 - 5.40 mg/dL 10/27/2024 12:37 AM EDT [facility] Comment:Free calcium levels vary inversely with pH by approximately 5% for each 0.1 unit of pH change. Assay results have been normalized to pH = 7.40. Serum 10/27/2024 12:1 3 AM EDT 10/27/2024 12:29 AM EDT Narrative [facility] - 10/27/2024 12:37 AM EDT This test has been developed and its performance characteristics determined by [facility] which is certified under the Clinical [...] BLOOD ORDERABLES Final Resu lt [facility] [address] [place] [address], [facility] * (ABNORMAL) Blood Gas, Arterial, STAT (10/27/2024 12:13 AM EDT) O2 Sat, Arterial 100 10/27/2024 12:23 AM EDT [facility] FIO2 30 10/27/2024 12:23 AM EDT [facility] pH, Arterial 7.32(L) 7.35 - 7.45 10/27/2024 12:23 AM EDT [facility] pCO2, Arterial 37 35 - 45 mm Hg 10/27/2024 12:23 AM EDT [facility] pO2, Arterial 137(H) 80 - 100 mm Hg 10/27/2024 12:23 AM EDT [facility] HCO3, Arterial 20(L) 22 - 26 mmol/L 10/27/2024 12:23 AM EDT [facility] CO2 Content,Arteri al 20(L) 23 - 27 mmol/L 10/27/2024 12:23 AM EDT [facility] Base Excess, Arterial -6.4(L) -2.0 - 3.0 mmol/L 10/27/2024 12:23 AM EDT [facility] %HBO2, Arterial 96.2 95.0 - 98.0 % 10/27/2024 12:23 AM EDT [facility] Carboxyhemoglo bin, Arterial 1.9 % 10/27/2024 12:23 AM EDT [facility] Comment: CARBOXYHEMOGLOBIN (CO) REFERENCE RANGES: Non-Smokers: <2 % Smokers: <8 % TOXIC: >20 % Methemoglobin, Arterial 1.5 0.0 - 1.5 % 10/27/2024 12:23 AM EDT [facility] Reduced hemoglobin, Arterial 0.4 0.0 - 5.0 % 10/27/2024 12:23 AM EDT [facility] Blood, Arterial 10/27/2024 1 2:13 AM EDT 10/27/2024 12:18 AM EDT John Pina MD LAB BLOOD ORDERABLES Final Resu lt [facility] [address] * (ABNORMAL) TEG-Bypass/ECMO/Liver HN (Factor function, Platelet/Fibrin Clot Strength w/Clot Breakdown, Heparinase In All Channels) (10/27/2024 12:13 AM EDT) [facility] Citrated Kaolin Reaction Time (TEGECMOLIVER) 9.1 4.6 - 9.1 minutes 10/27/2024 1:43 AM EDT [facility] Citrated Kaolin W/Heparinase Reaction Time (TEGECMOLIVER) 9.7(H) 4.3 - 8.3 minutes 10/27/2024 1:43 AM EDT [facility] Citrated Kaolin Maximum Amplitude (TEGECMOLIVER) <40.0(L) 52.0 - 69.0 mm 10/27/2024 1:43 AM EDT [facility] Citrated Functional Fibrinogen W/Heparinase Maximum Amplitude(TEGEC MOLIVER) 11.9(L) 15.0 - 34.0 mm 10/27/2024 1:43 AM EDT [facility] Citrated Rapid Teg W/Heparinase Maximum Amplitude (TEGECMOLIVER) 31.6(L) 53.0 - 69.0 mm 10/27/2024 1:43 AM EDT [facility] Citrated Kaolin w/Heparinase Percent Lysis (TEGECMOLIVER) 0.0 0.0 - 3.2 % 10/27/2024 1:43 AM EDT [facility] Whole Blood (Citrate) 10/27/2024 12:13 AM EDT 10/27/2024 12:18 AM EDT Kemar Sahni MD LAB BLOOD ORDERABLES Final Result [facility] [address] * (ABNORMAL) Lactic Acid (10/27/2024 12:13 AM EDT) Lactate 0.2(L) 0.5 - 2.2 mmol/L 10/27/2024 12:59 AM EDT [facility] Plasma 10/27/2024 12:1 3 AM EDT 10/27/2024 12:31 AM EDT Kemar Sahni MD LAB BLOOD ORDERABLES Final Result Performing Organization Address [facility] Co de Phone Number [facility] [address] [place] [address]. [address] * Magnesium (10/27/2024 12:13 AM EDT) Magnesium 1.8 1.5 - 2.5 mg/dL 10/27/2024 12:52 AM EDT [facility] Plasma 10/27/2024 12:1 3 AM EDT 10/27/2024 12:29 AM EDT Kemar Sahni MD LAB BLOOD ORDERABLES Final Result Performing Organization Address [facility] de Phone Number [facility] [address] [place] [address] * (ABNORMAL) Hepatic Function Panel (10/27/2024 12:13 AM EDT) Total Bilirubin 1.6(H) 0.0 - 1.5 mg/dL 10/27/2024 12:52 AM EDT [facility] Bilirubin, Direct 1.17(H) 0.00 - 0.40 mg/dL 10/27/2024 12:52 AM EDT [facility] AST 157(H) 13 - 39 U/L 10/27/2024 12:52 AM EDT [facility] ALT 261(H) 7 - 52 U/L 10/27/2024 12:52 AM EDT [facility] Alkaline Phosphatase 26(L) 36 - 125 U/L 10/27/2024 12:52 AM EDT [facility] Total Protein 3.8(L) 6.4 - 8.9 g/dL 10/27/2024 12:52 AM EDT [facility] Albumin 2.8(L) 3.5 - 5.7 g/dL 10/27/2024 12:52 AM EDT [facility] Bilirubin, Indirect 0.43 0.00 - 1.10 mg/dL 10/27/2024 12:52 AM EDT [facility] Plasma 10/27/2024 12:1 3 AM EDT 10/27/2024 12:29 AM EDT Kemar Sahni MD LAB BLOOD ORDERABLES Final Result Performing Organization Address City/[facility] Co de Phone Number [facility] [address] [facility]. [address] * (ABNORMAL) Protime-INR (10/27/2024 12:13 AM EDT) Protime 18.6(H) 12.1 - 15.1 seconds 10/27/2024 12:43 AM EDT [facility] INR 1.5(H) 0.9 - 1.1 10/27/2024 12:43 AM EDT [facility] Comment: RECOMMENDED THERAPEUTIC RANGES USING INR : Stable oral anticoagulant therapy: 2.0 - 3.0 Mechanical prosthetic heart valve: 2.5 - 3.5 Recurrent acute myocardial infarction: 2.5 - 3.5 Plasma 10/27/2024 12:1 3 AM EDT 10/27/2024 12:29 AM EDT Kemar Sahni MD LAB BLOOD ORDERABLES Final Result [facility] [address] [facility]. [address] * (ABNORMAL) CBC (10/27/2024 12:13 AM EDT) WBC 5.0 3.8 - 10.8 10E3/uL 10/27/2024 12:59 AM EDT [facility] RBC 2.70(L) 4.20 - 5.80 10E6/uL 10/27/2024 12:59 AM EDT [facility] Hemoglobin 8.5(L) 13.2 - 17.1 g/dL 10/27/2024 12:59 AM EDT [facility] Hematocrit 23.9(L) 38.5 - 50.0 % 10/27/2024 12:59 AM EDT [facility] MCV 88.5 80.0 - 100.0 fL 10/27/2024 12:59 AM EDT [facility] MCH 31.5 27.0 - 33.0 pg 10/27/2024 12:59 AM EDT [facility] MCHC 35.6 32.0 - 36.0 g/dL 10/27/2024 12:59 AM EDT [facility] RDW 20.6(H) 11.0 - 15.0 % 10/27/2024 12:59 AM EDT [facility] Platelets 35(L) 140 - 400 10E3/uL 10/27/2024 12:59 AM EDT [facility] Comment: CNV Specimen checked for clots. None detected. MPV 7.6 7.5 - 11.5 fL 10/27/2024 12:59 AM EDT [facility] Whole Blood 10/27/2024 12:1 3 AM EDT 10/27/2024 12:29 AM EDT us Kemar Sahni MD LAB BLOOD ORDERABLES Final Result [facility] [address] [id number] * (ABNORMAL) Renal Function Panel w/EGFR (10/27/2024 12:13 AM EDT) Sodium 141 133 - 146 mmol/L 10/27/2024 12:52 AM EDT [facility] Potassium 3.2(L) 3.5 - 5.3 mmol/L 10/27/2024 12:52 AM EDT [facility] Chloride 109 98 - 110 mmol/L 10/27/2024 12:52 AM EDT [facility] CO2 21 21 - 33 mmol/L 10/27/2024 12:52 AM EDT [facility] Anion Gap 11 3 - 16 mmol/L 10/27/2024 12:52 AM EDT [facility] BUN 64(H) 7 - 25 mg/dL 10/27/2024 12:52 AM EDT [facility] Creatinine 2.58(H) 0.60 - 1.30 mg/dL 10/27/2024 12:52 AM EDT [facility] Glucose 126(H) 70 - 100 mg/dL 10/27/2024 12:52 AM EDT [facility] Calcium 8.9 8.6 - 10.3 mg/dL 10/27/2024 12:52 AM EDT [facility] Phosphorus 5.3(H) 2.1 - 4.7 mg/dL 10/27/2024 12:52 AM EDT [facility] Albumin 2.8(L) 3.5 - 5.7 g/dL 10/27/2024 12:52 AM EDT [facility] Osmolality, Calculated 312(H) 278 - 305 mOsm/kg 10/27/2024 12:52 AM EDT [facility] EGFR 31 10/27/2024 12:52 AM EDT [facility] Comment:As of 2021, the [...] LAB BLOOD ORDERABLES Final Result [facility] [address] * (ABNORMAL) POC Glucose Monitoring Device (10/27/2024 12:08 AM EDT) POC Glucose Monitoring Device 121(H) 70 - 100 mg/dL 10/27/2024 12:08 AM EDT [facility] Blood 10/27/2024 12:0 8 AM EDT 10/27/2024 12:08 AM EDT Harvey Domínguez III, MD POINT OF CARE TEST ORDERABLES Final Result [facility] [address] [facility]. [address] * (ABNORMAL) POC Glucose Monitoring Device (10/26/2024 11:15 PM EDT) POC Glucose Monitoring Device 120(H) 70 - 100 mg/dL 10/26/2024 11:15 PM EDT [facility] Blood 10/26/2024 11:1 5 PM EDT 10/26/2024 11:15 PM EDT Harvey Domínguez III, MD POINT OF CARE TEST ORDERABLES Final Result [facility] [address] [facility]. [address] * (ABNORMAL) TEG-Bypass/ECMO/Liver HN (Factor function, Platelet/Fibrin Clot Strength w/Clot Breakdown, Heparinase In All Channels) (10/26/2024 10:36 PM EDT) Citrated Kaolin Reaction Time (TEGECMOLIVER) 10.0(H) 4.6 - 9.1 minutes 10/26/2024 11:53 PM EDT [facility] Citrated Kaolin W/Heparinase Reaction Time (TEGECMOLIVER) 10.2(H) 4.3 - 8.3 minutes 10/26/2024 11:53 PM EDT [facility] Citrated Kaolin Maximum Amplitude (TEGECMOLIVER) <40.0(L) 52.0 - 69.0 mm 10/26/2024 11:53 PM EDT [facility] Citrated Functional Fibrinogen W/Heparinase Maximum Amplitude(TEGEC MOLIVER) 11.3(L) 15.0 - 34.0 mm 10/26/2024 11:53 PM EDT [facility] Citrated Rapid Teg W/Heparinase Maximum Amplitude (TEGECMOLIVER) 41.8(L) 53.0 - 69.0 mm 10/26/2024 11:53 PM EDT [facility] Citrated Kaolin w/Heparinase Percent Lysis (TEGECMOLIVER) 0.0 0.0 - 3.2 % 10/26/2024 11:53 PM EDT [facility] Whole Blood (Citrate) 10/26/2024 10:36 PM EDT 10/26/2024 10:43 PM EDT Kemar Sahni MD LAB BLOOD ORDERABLES Final Result Performing Organization Address City/[facility]/ZIP Co de Phone Number [facility] [address] * (ABNORMAL) POC Glucose Monitoring Device (10/26/2024 10:14 PM EDT) POC Glucose Monitoring Device 124(H) 70 - 100 mg/dL 10/26/2024 11:11 PM EDT [facility] Blood 10/26/2024 10:1 4 PM EDT 10/26/2024 11:11 PM EDT Harvey Domínguez III, MD POINT OF CARE TEST ORDERABLES Final Result [facility] [address] * (ABNORMAL) POC Glucose Monitoring Device (10/26/2024 9:16 PM EDT) POC Glucose Monitoring Device 119(H) 70 - 100 mg/dL 10/26/2024 9:18 PM EDT [facility] Blood 10/26/2024 9:16 PM EDT 10/26/2024 9:18 PM EDT us Harvey Domínguez III, MD POINT OF CARE TEST ORDERABLES Final Result Performing Organization Address City/[facility]/ZIP Co de Phone Number [facility] [address] [facility]. [address] * (ABNORMAL) POC Glucose Monitoring Device (10/26/2024 8:05 PM EDT) POC Glucose Monitoring Device 113(H) 70 - 100 mg/dL 10/26/2024 8:06 PM EDT [facility] Blood 10/26/2024 8:05 PM EDT 10/26/2024 8:06 PM EDT us Harvey Domínguez III, MD POINT OF CARE TEST ORDERABLES Final Result Performing Organization Address [facility]/ZIP Co de Phone Number [facility] [address] * (ABNORMAL) POC Glucose Monitoring Device (10/26/2024 7:02 PM EDT) POC Glucose Monitoring Device 111(H) 70 - 100 mg/dL 10/26/2024 7:03 PM EDT [facility] Blood 10/26/2024 7:02 PM EDT 10/26/2024 7:03 PM EDT us Harvey Domínguez III, MD POINT OF CARE TEST ORDERABLES Final Result Performing Organization Address City/[facility]/ZIP Co de Phone Number [facility] [address] [facility]. [address] * Transfuse Cryoprecipitate Transfusion Rate: Per dept routine (10/26/2024 6:39 PM EDT) us John Pina MD NURSING TREATMENT ORDERABLES - BLOOD ADMIN Final Result EXTERNAL * Transfuse Cryoprecipitate Transfusion Rate: Per dept routine, 1 Units (10/26/2024 6:39 PM EDT) us John Pina MD NURSING TREATMENT ORDERABLES - BLOOD ADMIN Final Result Performing Organization Address [facility] Co de Phone Number EXTERNAL * (ABNORMAL) POC Glucose Monitoring Device (10/26/2024 6:33 PM EDT) POC Glucose Monitoring Device 110(H) 70 - 100 mg/dL 10/26/2024 6:34 PM EDT [facility] Blood 10/26/2024 6:33 PM EDT 10/26/2024 6:34 PM EDT us Harvey Domínguez III, MD POINT OF CARE TEST ORDERABLES Final Result Performing Organization Address [facility] Co de Phone Number [facility] [address] * Transfuse Cryoprecipitate Transfusion Rate: Per dept routine (10/26/2024 6:22 PM EDT) us John Pina MD NURSING TREATMENT ORDERABLES - BLOOD ADMIN Final Result Performing Organization Address [facility] Co de Phone Number EXTERNAL * Transfuse Cryoprecipitate Transfusion Rate: Per dept routine, 1 Units (10/26/2024 6:22 PM EDT) us John Pina MD NURSING TREATMENT ORDERABLES - BLOOD ADMIN Final Result Performing Organization Address City/[facility]/ZIP Co de Phone Number EXTERNAL * (ABNORMAL) POC Glucose Monitoring Device (10/26/2024 6:17 PM EDT) POC Glucose Monitoring Device 104(H) 70 - 100 mg/dL 10/26/2024 6:18 PM EDT [facility] Blood 10/26/2024 6:17 PM EDT 10/26/2024 6:18 PM EDT us Harvey Domínguez III, MD POINT OF CARE TEST ORDERABLES Final Result Performing Organization Address City/State/[facility] Co de Phone Number [facility] [address] * (ABNORMAL) POC Glucose Monitoring Device (10/26/2024 4:58 PM EDT) POC Glucose Monitoring Device 115(H) 70 - 100 mg/dL 10/26/2024 4:59 PM EDT [facility] Blood 10/26/2024 4:58 PM EDT 10/26/2024 4:58 PM EDT Harvey Domínguez III, MD POINT OF CARE TEST ORDERABLES Final Result Performing Organization Address [facility] de Phone Number [facility] [address] [facility]. [address] * (ABNORMAL) Calcium Free, Serum (10/26/2024 4:42 PM EDT) Free Calcium, Ser 5.67(H) 4.40 - 5.40 mg/dL 10/26/2024 4:55 PM EDT [facility] Comment:Free calcium levels vary inversely with pH by approximately 5% for each 0.1 unit of pH change. Assay results have been normalized to pH = 7.40. Serum 10/26/2024 4:42 PM EDT 10/26/2024 4:47 PM EDT Narrative [facility] - 10/26/2024 4:55 PM EDT This test has been developed and its performance characteristics determined by [facility] which is certified under the Clinical [...] ORDERABLES Final Resu lt Performing Organization Address [facility] Co de Phone Number [facility] [address] [facility]. [address] * Repeat Crossmatch (Recipient Sample) (10/26/2024 4:42 PM EDT) Repeat Cx - Recipient The request and specimen(s) for this test have been received and transported to the [facility] at [address] [place] [address]. The [facility] will report results directly to the client. 10/26/2024 4:49 PM EDT [facility] Whole Blood 10/26/2024 4:42 PM EDT 10/26/2024 4:49 PM EDT Narrative [facility]ALTH [facility] - 10/26/2024 4:49 PM EDT To be sent to [facility] for Donor [id number] cross match with Blair Gilbert Sveta Judge MD LAB BLOOD ORDERABLES Final Resu lt Performing Organization Address City/[facility]/ZIP Co de Phone Number [facility] [address] [place] [address] * (ABNORMAL) Lactic Acid (10/26/2024 4:42 PM EDT) Pathologist [facility] Lactate 0.3(L) 0.5 - 2.2 mmol/L 10/26/2024 5:19 PM EDT [facility] Plasma 10/26/2024 4:42 PM EDT 10/26/2024 4:47 PM EDT Kemar Sahni MD LAB BLOOD ORDERABLES Final Result [facility] [address] [place] [address] * Magnesium (10/26/2024 4:42 PM EDT) Pathologist [facility] Magnesium 2.0 1.5 - 2.5 mg/dL 10/26/2024 5:24 PM EDT [facility] Plasma 10/26/2024 4:42 PM EDT 10/26/2024 4:47 PM EDT Kemar Sahni MD LAB BLOOD ORDERABLES Final Result [facility] [address] [facility]. [address] * (ABNORMAL) Hepatic Function Panel (10/26/2024 4:42 PM EDT) Total Bilirubin 2.3(H) 0.0 - 1.5 mg/dL 10/26/2024 5:24 PM EDT [facility] Bilirubin, Direct 1.85(H) 0.00 - 0.40 mg/dL 10/26/2024 5:24 PM EDT [facility] AST 374(H) 13 - 39 U/L 10/26/2024 5:24 PM EDT [facility] ALT 458(H) 7 - 52 U/L 10/26/2024 5:24 PM EDT [facility] Alkaline Phosphatase 39 36 - 125 U/L 10/26/2024 5:24 PM EDT [facility] Total Protein 3.8(L) 6.4 - 8.9 g/dL 10/26/2024 5:24 PM EDT [facility] Albumin 3.0(L) 3.5 - 5.7 g/dL 10/26/2024 5:24 PM EDT [facility] Bilirubin, Indirect 0.45 0.00 - 1.10 mg/dL 10/26/2024 5:24 PM EDT [facility] Plasma 10/26/2024 4:42 PM EDT 10/26/2024 4:47 PM EDT Kemar Sahni MD LAB BLOOD ORDERABLES Final Result [facility] [address] [place] [facility]. [address] * (ABNORMAL) Protime-INR (10/26/2024 4:42 PM EDT) Protime 20.3(H) 12.1 - 15.1 seconds 10/26/2024 5:12 PM EDT [facility] INR 1.7(H) 0.9 - 1.1 10/26/2024 5:12 PM EDT [facility] Comment: RECOMMENDED THERAPEUTIC RANGES USING INR : Stable oral anticoagulant therapy: 2.0 - 3.0 Mechanical prosthetic heart valve: 2.5 - 3.5 Recurrent acute myocardial infarction: 2.5 - 3.5 Plasma 10/26/2024 4:42 PM EDT 10/26/2024 4:47 PM EDT Kemar Sahni MD LAB BLOOD ORDERABLES Final Result [facility] [address] [place] [address], [facility] * (ABNORMAL) CBC (10/26/2024 4:42 PM EDT) Pathologist [facility] WBC 10.0 3.8 - 10.8 10E3/uL 10/26/2024 5:00 PM EDT [facility] RBC 3.44(L) 4.20 - 5.80 10E6/uL 10/26/2024 5:00 PM EDT [facility] Hemoglobin 10.5(L) 13.2 - 17.1 g/dL 10/26/2024 5:00 PM EDT [facility] Hematocrit 30.2(L) 38.5 - 50.0 % 10/26/2024 5:00 PM EDT [facility] MCV 87.7 80.0 - 100.0 fL 10/26/2024 5:00 PM EDT [facility] MCH 30.6 27.0 - 33.0 pg 10/26/2024 5:00 PM EDT [facility] MCHC 34.8 32.0 - 36.0 g/dL 10/26/2024 5:00 PM EDT [facility] RDW 20.1(H) 11.0 - 15.0 % 10/26/2024 5:00 PM EDT [facility] Platelets 48(L) 140 - 400 10E3/uL 10/26/2024 5:00 PM EDT [facility] Comment:Specimen checked for clots. None detected. MPV 7.9 7.5 - 11.5 fL 10/26/2024 5:00 PM EDT [facility] Whole Blood 10/26/2024 4:42 PM EDT 10/26/2024 4:47 PM EDT Kemar Sahni MD LAB BLOOD ORDERABLES Final Result [facility] [address] [place] [address], [facility] * (ABNORMAL) Renal Function Panel w/EGFR (10/26/2024 4:42 PM EDT) Sodium 142 133 - 146 mmol/L 10/26/2024 5:24 PM EDT [facility] Potassium 3.3(L) 3.5 - 5.3 mmol/L 10/26/2024 5:24 PM EDT [facility] Chloride 109 98 - 110 mmol/L 10/26/2024 5:24 PM EDT [facility] CO2 23 21 - 33 mmol/L 10/26/2024 5:24 PM EDT [facility] Anion Gap 10 3 - 16 mmol/L 10/26/2024 5:24 PM EDT [facility] BUN 63(H) 7 - 25 mg/dL 10/26/2024 5:24 PM EDT [facility] Creatinine 2.85(H) 0.60 - 1.30 mg/dL 10/26/2024 5:24 PM EDT [facility] Glucose 127(H) 70 - 100 mg/dL 10/26/2024 5:24 PM EDT [facility] Calcium 8.9 8.6 - 10.3 mg/dL 10/26/2024 5:24 PM EDT [facility] Phosphorus 4.4 2.1 - 4.7 mg/dL 10/26/2024 5:24 PM EDT [facility] Albumin 3.0(L) 3.5 - 5.7 g/dL 10/26/2024 5:24 PM EDT [facility] Osmolality, Calculated 314(H) 278 - 305 mOsm/kg 10/26/2024 5:24 PM EDT [facility] EGFR 28 10/26/2024 5:24 PM EDT [facility] Comment:As of 2021, the [...] BLOOD ORDERABLES Final Result Performing Organization Address City/[facility]/ZIP Co de Phone Number [facility] [address] * (ABNORMAL) POC Glucose Monitoring Device (10/26/2024 3:54 PM EDT) POC Glucose Monitoring Device 126(H) 70 - 100 mg/dL 10/26/2024 3:55 PM EDT [facility] Blood 10/26/2024 3:54 PM EDT 10/26/2024 3:55 PM EDT Harvey Domínguez III, MD POINT OF CARE TEST ORDERABLES Final Result [facility] [address] * (ABNORMAL) POC Glucose Monitoring Device (10/26/2024 3:06 PM EDT) POC Glucose Monitoring Device 144(H) 70 - 100 mg/dL 10/26/2024 3:14 PM EDT [facility] Blood 10/26/2024 3:06 PM EDT 10/26/2024 3:13 PM EDT Harvey Domínguez III, MD POINT OF CARE TEST ORDERABLES Final Result Performing Organization Address City/[facility]/ZIP Co de Phone Number [facility] [address] * (ABNORMAL) TEG-Bypass/ECMO/Liver HN (Factor function, Platelet/Fibrin Clot Strength w/Clot Breakdown, Heparinase In All Channels) (10/26/2024 3:03 PM EDT) [facility] Citrated Kaolin Reaction Time (TEGECMOLIVER) 8.2 4.6 - 9.1 minutes 10/26/2024 4:43 PM EDT [facility] Citrated Kaolin W/Heparinase Reaction Time (TEGECMOLIVER) 8.2 4.3 - 8.3 minutes 10/26/2024 4:43 PM EDT [facility] Citrated Kaolin Maximum Amplitude (TEGECMOLIVER) 41.7(L) 52.0 - 69.0 mm 10/26/2024 4:43 PM EDT [facility] Citrated Functional Fibrinogen W/Heparinase Maximum Amplitude(TEGEC MOLIVER) 11.4(L) 15.0 - 34.0 mm 10/26/2024 4:43 PM EDT [facility] Citrated Rapid Teg W/Heparinase Maximum Amplitude (TEGECMOLIVER) 38.6(L) 53.0 - 69.0 mm 10/26/2024 4:43 PM EDT [facility] Citrated Kaolin w/Heparinase Percent Lysis (TEGECMOLIVER) 0.0 0.0 - 3.2 % 10/26/2024 4:43 PM EDT [facility] Whole Blood (Citrate) 10/26/2024 3:03 PM EDT 10/26/2024 3:10 PM EDT Jani Mooney MD LAB BLOOD ORDERABLES Final Resul t [facility] [address] [place] [address] * ECG 12 lead (MUSE) (10/26/2024 2:19 PM EDT) 10/26/2024 2:19 PM EDT Narrative MUSE - 10/27/2024 10:09 AM EDT Ventricular Rate: 105 BPM Atrial Rate: 105 BPM P-R Interval: 128 ms QRS Duration: 94 ms QT: 474 ms QTc: 626 ms R Shaw[place]: -37 degrees T [place]: 35 degrees Diagnosis Line: Critical Test Result: Long QTc ^ SINUS TACHYCARDIA ^ LEFT AXIS DEVIATION, LEFT ANTERIOR HEMIBLOCK ^ PROLONGED QT ^ ABNORMAL ECG ^ ^ Confirmed by MD HA, ERICK ([id number]) on 10/27/2024 10:09:25 AM Quinten Best MD ECG ORDERABLES Final Result Performing Organization Address City/[facility]/ZIP Co de Phone Number MUSE * (ABNORMAL) POC Glucose Monitoring Device (10/26/2024 2:00 PM EDT) POC Glucose Monitoring Device 183(H) 70 - 100 mg/dL 10/26/2024 2:01 PM EDT [facility] Blood 10/26/2024 2:00 PM EDT 10/26/2024 2:01 PM EDT Harvey Domínguez III, MD POINT OF CARE TEST ORDERABLES Final Result Performing Organization Address [facility]/ZIP Co de Phone Number [facility] [address] [place] [address] * (ABNORMAL) POC Glucose Monitoring Device (10/26/2024 1:05 PM EDT) POC Glucose Monitoring Device 212(H) 70 - 100 mg/dL 10/26/2024 1:06 PM EDT [facility] Blood 10/26/2024 1:05 PM EDT 10/26/2024 1:06 PM EDT us Harvey Domínguez III, MD POINT OF CARE TEST ORDERABLES Final Result [facility] [address] * Transfuse Cryoprecipitate Has consent been obtained? Yes; Transfusion Rate: Per dept routine (10/26/2024 12:25 PM EDT) Shay Sifuentes MD NURSING TREATMENT ORDERABLES - BLOOD ADMIN Final Result Performing Organization Address [facility] Co de Phone Number EXTERNAL * Transfuse Cryoprecipitate Has consent been obtained? Yes; Transfusion Rate: Per dept routine, 1 Units (10/26/2024 12:25 PM EDT) Shay Sifuentes MD NURSING TREATMENT ORDERABLES - BLOOD ADMIN Final Result Performing Organization Address [facility] de Phone Number EXTERNAL * (ABNORMAL) POC Glucose Monitoring Device (10/26/2024 12:06 PM EDT) POC Glucose Monitoring Device 226(H) 70 - 100 mg/dL 10/26/2024 12:07 PM EDT [facility] Blood 10/26/2024 12:0 6 PM EDT 10/26/2024 12:07 PM EDT Harvey Domínguez III, MD POINT OF CARE TEST ORDERABLES Final Result Performing Organization Address [facility] de Phone Number [facility] [address] [facility]. [address] * Transfuse Cryoprecipitate Transfusion Rate: Per dept routine (10/26/2024 12:01 PM EDT) us John Pina MD NURSING TREATMENT ORDERABLES - BLOOD ADMIN Final Result Performing Organization Address [facility] Co de Phone Number EXTERNAL * Transfuse Cryoprecipitate Transfusion Rate: Per dept routine, 1 Units (10/26/2024 12:01 PM EDT) John Pina MD NURSING TREATMENT ORDERABLES - BLOOD ADMIN Final Result Performing Organization Address [facility] Co de Phone Number EXTERNAL * Lactic Acid (10/26/2024 10:48 AM EDT) Lactate 1.2 0.5 - 2.2 mmol/L 10/26/2024 11:27 AM EDT [facility] Plasma 10/26/2024 10:4 8 AM EDT 10/26/2024 10:53 AM EDT Kemar Sahni MD LAB BLOOD ORDERABLES Final Result [facility] [address] [facility]. [address] * Magnesium (10/26/2024 10:48 AM EDT) Magnesium 2.0 1.5 - 2.5 mg/dL 10/26/2024 11:26 AM EDT [facility] Plasma 10/26/2024 10:4 8 AM EDT 10/26/2024 10:53 AM EDT Kemar Sahni MD LAB BLOOD ORDERABLES Final Result Performing Organization Address City/[facility] Co de Phone Number [facility] [address] * (ABNORMAL) Hepatic Function Panel (10/26/2024 10:48 AM EDT) Total Bilirubin 5.9(H) 0.0 - 1.5 mg/dL 10/26/2024 11:26 AM EDT [facility] Bilirubin, Direct 4.74(H) 0.00 - 0.40 mg/dL 10/26/2024 11:26 AM EDT [facility] AST 872(H) 13 - 39 U/L 10/26/2024 11:26 AM EDT [facility] ALT 736(H) 7 - 52 U/L 10/26/2024 11:26 AM EDT [facility] Alkaline Phosphatase 56 36 - 125 U/L 10/26/2024 11:26 AM EDT [facility] Total Protein 3.5(L) 6.4 - 8.9 g/dL 10/26/2024 11:26 AM EDT [facility] Albumin 2.5(L) 3.5 - 5.7 g/dL 10/26/2024 11:26 AM EDT [facility] Bilirubin, Indirect 1.16(H) 0.00 - 1.10 mg/dL 10/26/2024 11:26 AM EDT [facility] Plasma 10/26/2024 10:4 8 AM EDT 10/26/2024 10:53 AM EDT Kemar Sahni MD LAB BLOOD ORDERABLES Final Result Performing Organization Address [facility] Co de Phone Number [facility] [address] [facility]. [address] * (ABNORMAL) Protime-INR (10/26/2024 10:48 AM EDT) Protime 23.0(H) 12.1 - 15.1 seconds 10/26/2024 11:26 AM EDT [facility] INR 2.0(H) 0.9 - 1.1 10/26/2024 11:26 AM EDT [facility] Comment: RECOMMENDED THERAPEUTIC RANGES USING INR : Stable oral anticoagulant therapy: 2.0 - 3.0 Mechanical prosthetic heart valve: 2.5 - 3.5 Recurrent acute myocardial infarction: 2.5 - 3.5 Plasma 10/26/2024 10:4 8 AM EDT 10/26/2024 10:53 AM EDT Kemar Sahni MD LAB BLOOD ORDERABLES Final Result Performing Organization Address [facility] Co de Phone Number [facility] [address] [facility]. [address] * (ABNORMAL) CBC (10/26/2024 10:48 AM EDT) WBC 17.3(H) 3.8 - 10.8 10E3/uL 10/26/2024 11:14 AM EDT [facility] RBC 4.22 4.20 - 5.80 10E6/uL 10/26/2024 11:14 AM EDT [facility] Hemoglobin 12.8(L) 13.2 - 17.1 g/dL 10/26/2024 11:14 AM EDT [facility] Hematocrit 37.2(L) 38.5 - 50.0 % 10/26/2024 11:14 AM EDT [facility] MCV 88.3 80.0 - 100.0 fL 10/26/2024 11:14 AM EDT [facility] MCH 30.4 27.0 - 33.0 pg 10/26/2024 11:14 AM EDT [facility] MCHC 34.4 32.0 - 36.0 g/dL 10/26/2024 11:14 AM EDT [facility] RDW 20.8(H) 11.0 - 15.0 % 10/26/2024 11:14 AM EDT [facility] Platelets 109(L) 140 - 400 10E3/uL 10/26/2024 11:14 AM EDT [facility] MPV 7.5 7.5 - 11.5 fL 10/26/2024 11:14 AM EDT [facility] Whole Blood 10/26/2024 10:4 8 AM EDT 10/26/2024 10:53 AM EDT Kemar Sahni MD LAB BLOOD ORDERABLES Final Result [facility] [address] * (ABNORMAL) Blood gas, arterial (10/26/2024 10:48 AM EDT) O2 Sat, Arterial 97 10/26/2024 10:54 AM EDT [facility] FIO2 35% 10/26/2024 10:54 AM EDT [facility] pH, Arterial 7.37 7.35 - 7.45 10/26/2024 10:54 AM EDT [facility] pCO2, Arterial 36 35 - 45 mm Hg 10/26/2024 10:54 AM EDT [facility] pO2, Arterial 91 80 - 100 mm Hg 10/26/2024 10:54 AM EDT [facility] HCO3, Arterial 22 22 - 26 mmol/L 10/26/2024 10:54 AM EDT [facility] CO2 Content,Arteri al 22(L) 23 - 27 mmol/L 10/26/2024 10:54 AM EDT [facility] Base Excess, Arterial -3.9(L) -2.0 - 3.0 mmol/L 10/26/2024 10:54 AM EDT [facility] %HBO2, Arterial 94.8(L) 95.0 - 98.0 % 10/26/2024 10:54 AM EDT [facility] Carboxyhemoglo bin, Arterial 1.9 % 10/26/2024 10:54 AM EDT [facility] Comment: CARBOXYHEMOGLOBIN (CO) REFERENCE RANGES: Non-Smokers: <2 % Smokers: <8 % TOXIC: >20 % Methemoglobin, Arterial 0.7 0.0 - 1.5 % 10/26/2024 10:54 AM EDT [facility] Reduced hemoglobin, Arterial 2.5 0.0 - 5.0 % 10/26/2024 10:54 AM EDT [facility] Blood, Arterial 10/26/2024 1 0:48 AM EDT 10/26/2024 10:52 AM EDT us Shay Sifuentes MD LAB BLOOD ORDERABLES Final Resu lt [facility] [address] [place] [address], [facility] * (ABNORMAL) Renal Function Panel w/EGFR (10/26/2024 10:48 AM EDT) Sodium 139 133 - 146 mmol/L 10/26/2024 11:26 AM EDT [facility] Potassium 2.9(LL) 3.5 - 5.3 mmol/L 10/26/2024 11:26 AM EDT [facility] Comment:K CRITICAL VALUE WAS PREVIOUSLY CALLED Chloride 107 98 - 110 mmol/L 10/26/2024 11:26 AM EDT [facility] CO2 22 21 - 33 mmol/L 10/26/2024 11:26 AM EDT [facility] Anion Gap 10 3 - 16 mmol/L 10/26/2024 11:26 AM EDT [facility] BUN 61(H) 7 - 25 mg/dL 10/26/2024 11:26 AM EDT [facility] Creatinine 2.78(H) 0.60 - 1.30 mg/dL 10/26/2024 11:26 AM EDT [facility] Glucose 253(H) 70 - 100 mg/dL 10/26/2024 11:26 AM EDT [facility] Calcium 8.8 8.6 - 10.3 mg/dL 10/26/2024 11:26 AM EDT [facility] Phosphorus 4.1 2.1 - 4.7 mg/dL 10/26/2024 11:26 AM EDT [facility] Albumin 2.5(L) 3.5 - 5.7 g/dL 10/26/2024 11:26 AM EDT [facility] Osmolality, Calculated 314(H) 278 - 305 mOsm/kg 10/26/2024 11:26 AM EDT [facility] EGFR 28 10/26/2024 11:26 AM EDT [facility] Comment:As of 2021, the [...] AM EDT 10/26/2024 10:53 AM EDT us Kemra Sahni MD LAB BLOOD ORDERABLES Final Result [facility] [address] [place] [address], [facility] * (ABNORMAL) POC Glucose Monitoring Device (10/26/2024 10:47 AM EDT) POC Glucose Monitoring Device 234(H) 70 - 100 mg/dL 10/26/2024 10:48 AM EDT [facility] Blood 10/26/2024 10:4 7 AM EDT 10/26/2024 10:48 AM EDT us Harvey Domínguez III, MD POINT OF CARE TEST ORDERABLES Final Result Performing Organization Address [facility] Co de Phone Number [facility] [address] [place] [address]. [address] * CARISA Rhythm Strip - Scan (10/26/2024 10:45 AM EDT) us Scanning Uchhim SCAN DOCS - NO RESULTS Final Res ult * (ABNORMAL) POC Glucose Monitoring Device (10/26/2024 10:08 AM EDT) POC Glucose Monitoring Device 235(H) 70 - 100 mg/dL 10/26/2024 10:09 AM EDT [facility] Blood 10/26/2024 10:0 8 AM EDT 10/26/2024 10:09 AM EDT us Harvey Domínguez III, MD POINT OF CARE TEST ORDERABLES Final Result Performing Organization Address [facility] Co de Phone Number [facility] [address] [facility]. [address] * (ABNORMAL) POC Glucose Monitoring Device (10/26/2024 8:57 AM EDT) POC Glucose Monitoring Device 232(H) 70 - 100 mg/dL 10/26/2024 8:59 AM EDT [facility] Blood 10/26/2024 8:57 AM EDT 10/26/2024 8:58 AM EDT us Harvey Domínguez III, MD POINT OF CARE TEST ORDERABLES Final Result Performing Organization Address City/[facility] Co de Phone Number [facility] [address] [place] [address], [facility] * ECG 12 lead (MUSE) (10/26/2024 8:16 AM EDT) 10/26/2024 8:16 AM EDT Narrative MUSE - 10/27/2024 10:09 AM EDT Ventricular Rate: 112 BPM QRS Duration: 96 ms QT: 452 ms QTc: 616 ms R Shawnee: -41 degrees T [place]nee: 40 degrees Diagnosis Line: Critical Test Result: Long QTc ^ SINUS TACHYCARDIA OCCASIONAL PREMATURE VENTRICULAR COMPLEXES ^ LEFT AXIS DEVIATION, LEFT ANTERIOR HEMIBLOCK ^ PROLONGED QT ^ ABNORMAL ECG ^ ^ Confirmed by MD HA, [facility] ([id number]) on 10/27/2024 10:09:18 AM Shay Sifuentes MD ECG ORDERABLES Final Result Performing Organization Address [facility] de Phone Number MUSE * X-ray Portable [...] - 100 mg/dL 10/26/2024 8:01 AM EDT [facility] Blood 10/26/2024 7:59 AM EDT 10/26/2024 8:00 AM EDT Harvey Domínguez III, MD POINT OF CARE TEST ORDERABLES Final Result [facility] [address] * (ABNORMAL) TEG-Bypass/ECMO/Liver HN (Factor function, Platelet/Fibrin Clot Strength w/Clot Breakdown, Heparinase In All Channels) (10/26/2024 7:59 AM EDT) Citrated Kaolin Reaction Time (TEGECMOLIVER) 8.2 4.6 - 9.1 minutes 10/26/2024 10:36 AM EDT [facility] Citrated Kaolin W/Heparinase Reaction Time (TEGECMOLIVER) 8.1 4.3 - 8.3 minutes 10/26/2024 10:36 AM EDT [facility] Citrated Kaolin Maximum Amplitude (TEGECMOLIVER) 46.8(L) 52.0 - 69.0 mm 10/26/2024 10:36 AM EDT [facility] Citrated Functional Fibrinogen W/Heparinase Maximum Amplitude(TEGEC MOLIVER) 10.5(L) 15.0 - 34.0 mm 10/26/2024 10:36 AM EDT [facility] Citrated Rapid Teg W/Heparinase Maximum Amplitude (TEGECMOLIVER) 45.5(L) 53.0 - 69.0 mm 10/26/2024 10:36 AM EDT [facility] Citrated Kaolin w/Heparinase Percent Lysis (TEGECMOLIVER) 0.0 0.0 - 3.2 % 10/26/2024 10:36 AM EDT [facility] Whole Blood (Citrate) 10/26/2024 7:59 AM EDT 10/26/2024 8:05 AM EDT Shay Sifuentes MD LAB BLOOD ORDERABLES Final Resu lt [facility] [address] * (ABNORMAL) POC Glucose Monitoring Device (10/26/2024 6:12 AM EDT) [facility] POC Glucose Monitoring Device 196(H) 70 - 100 mg/dL 10/26/2024 6:13 AM EDT [facility] Blood 10/26/2024 6:12 AM EDT 10/26/2024 6:13 AM EDT Harvey Domínguez III, MD POINT OF CARE TEST ORDERABLES Final Result [facility] [address] * Lactic Acid (10/26/2024 6:10 AM EDT) Lactate 1.2 0.5 - 2.2 mmol/L 10/26/2024 6:39 AM EDT [facility] Plasma 10/26/2024 6:10 AM EDT 10/26/2024 6:19 AM EDT Sveta Judge MD LAB BLOOD ORDERABLES Final Resu lt [facility] [address] * (ABNORMAL) Fibrinogen (10/26/2024 6:10 AM EDT) Fibrinogen 160(L) 218 - 406 mg/dL 10/26/2024 6:41 AM EDT [facility] Plasma 10/26/2024 6:10 AM EDT 10/26/2024 6:26 AM EDT Sveta Jugde MD LAB BLOOD ORDERABLES Final Resu lt Performing Organization Address [facility] Co de Phone Number [facility] [address] [place] [facility]. [address] * (ABNORMAL) Protime-INR (10/26/2024 6:10 AM EDT) Protime 25.0(H) 12.1 - 15.1 seconds 10/26/2024 6:41 AM EDT [facility] INR 2.2(H) 0.9 - 1.1 10/26/2024 6:41 AM EDT [facility] Comment: RECOMMENDED THERAPEUTIC RANGES USING INR : Stable oral anticoagulant therapy: 2.0 - 3.0 Mechanical prosthetic heart valve: 2.5 - 3.5 Recurrent acute myocardial infarction: 2.5 - 3.5 Plasma 10/26/2024 6:10 AM EDT 10/26/2024 6:26 AM EDT Sveta Judge MD LAB BLOOD ORDERABLES Final Resu lt [facility] [address] [facility]. [address] * (ABNORMAL) Blood gas, arterial (10/26/2024 6:10 AM EDT) O2 Sat, Arterial 98 10/26/2024 6:23 AM EDT [facility] FIO2 60 10/26/2024 6:23 AM EDT [facility] pH, Arterial 7.27(L) 7.35 - 7.45 10/26/2024 6:23 AM EDT [facility] pCO2, Arterial 47(H) 35 - 45 mm Hg 10/26/2024 6:23 AM EDT [facility] pO2, Arterial 127(H) 80 - 100 mm Hg 10/26/2024 6:23 AM EDT [facility] HCO3, Arterial 21(L) 22 - 26 mmol/L 10/26/2024 6:23 AM EDT [facility] CO2 Content,Arteri al 23 23 - 27 mmol/L 10/26/2024 6:23 AM EDT [facility] Base Excess, Arterial -5.4(L) -2.0 - 3.0 mmol/L 10/26/2024 6:23 AM EDT [facility] %HBO2, Arterial 94.6(L) 95.0 - 98.0 % 10/26/2024 6:23 AM EDT [facility] Carboxyhemoglo bin, Arterial 2.0 % 10/26/2024 6:23 AM EDT [facility] Comment: CARBOXYHEMOGLOBIN (CO) REFERENCE RANGES: Non-Smokers: <2 % Smokers: <8 % TOXIC: >20 % Methemoglobin, Arterial 1.6(H) 0.0 - 1.5 % 10/26/2024 6:23 AM EDT [facility] Reduced hemoglobin, Arterial 1.8 0.0 - 5.0 % 10/26/2024 6:23 AM EDT [facility] Blood, Arterial 10/26/2024 6 :10 AM EDT 10/26/2024 6:20 AM EDT us Sveta Judge MD LAB BLOOD ORDERABLES Final Resu lt [facility] [address] [place] [address], [facility] * Magnesium (10/26/2024 6:10 AM EDT) Magnesium 1.5 1.5 - 2.5 mg/dL 10/26/2024 7:09 AM EDT [facility] Plasma 10/26/2024 6:10 AM EDT 10/26/2024 6:23 AM EDT Sveta Judge MD LAB BLOOD ORDERABLES Final Resu lt Performing Organization Address City/[facility]/ZIP Co de Phone Number [facility] [address] * (ABNORMAL) Hepatic Function Panel (10/26/2024 6:10 AM EDT) Total Bilirubin 6.2(H) 0.0 - 1.5 mg/dL 10/26/2024 7:11 AM EDT [facility] Bilirubin, Direct 5.26(H) 0.00 - 0.40 mg/dL 10/26/2024 7:11 AM EDT [facility] AST 1,071(H) 13 - 39 U/L 10/26/2024 7:11 AM EDT [facility] ALT 805(H) 7 - 52 U/L 10/26/2024 7:11 AM EDT [facility] Alkaline Phosphatase 55 36 - 125 U/L 10/26/2024 7:11 AM EDT [facility] Total Protein <3.0(L) 6.4 - 8.9 g/dL 10/26/2024 7:11 AM EDT [facility] Albumin 1.9(L) 3.5 - 5.7 g/dL 10/26/2024 7:11 AM EDT [facility] Bilirubin, Indirect 0.94 0.00 - 1.10 mg/dL 10/26/2024 7:11 AM EDT [facility] Plasma 10/26/2024 6:10 AM EDT 10/26/2024 6:23 AM EDT Sveta Judge MD LAB BLOOD ORDERABLES Final Resu lt [facility] [address] [facility]. [address] * (ABNORMAL) Renal Function Panel w/EGFR (10/26/2024 6:10 AM EDT) Sodium 141 133 - 146 mmol/L 10/26/2024 7:09 AM EDT [facility] Potassium 2.8(LL) 3.5 - 5.3 mmol/L 10/26/2024 7:09 AM EDT [facility] Comment:Critical value previ ously called. Chloride 106 98 - 110 mmol/L 10/26/2024 7:09 AM EDT [facility] CO2 25 21 - 33 mmol/L 10/26/2024 7:09 AM EDT [facility] Anion Gap 10 3 - 16 mmol/L 10/26/2024 7:09 AM EDT [facility] BUN 57(H) 7 - 25 mg/dL 10/26/2024 7:09 AM EDT [facility] Creatinine 2.70(H) 0.60 - 1.30 mg/dL 10/26/2024 7:09 AM EDT [facility] Glucose 210(H) 70 - 100 mg/dL 10/26/2024 7:09 AM EDT [facility] Calcium 8.7 8.6 - 10.3 mg/dL 10/26/2024 7:09 AM EDT [facility] Phosphorus 5.4(H) 2.1 - 4.7 mg/dL 10/26/2024 7:09 AM EDT [facility] Albumin 1.9(L) 3.5 - 5.7 g/dL 10/26/2024 7:11 AM EDT [facility] Osmolality, Calculated 314(H) 278 - 305 mOsm/kg 10/26/2024 7:09 AM EDT [facility] EGFR 29 10/26/2024 7:09 AM T [facility] Comment:As of 2021, the [...] BLOOD ORDERABLES Final Resu lt [facility] [address] [place] [address], [facility] * (ABNORMAL) CBC (10/26/2024 6:10 AM EDT) WBC 14.8(H) 3.8 - 10.8 10E3/uL 10/26/2024 6:46 AM EDT [facility] RBC 4.04(L) 4.20 - 5.80 10E6/uL 10/26/2024 6:46 AM EDT [facility] Hemoglobin 12.7(L) 13.2 - 17.1 g/dL 10/26/2024 6:46 AM EDT [facility] Hematocrit 35.9(L) 38.5 - 50.0 % 10/26/2024 6:46 AM EDT [facility] MCV 89.0 80.0 - 100.0 fL 10/26/2024 6:46 AM EDT [facility] MCH 31.3 27.0 - 33.0 pg 10/26/2024 6:46 AM EDT [facility] MCHC 35.2 32.0 - 36.0 g/dL 10/26/2024 6:46 AM EDT [facility] RDW 19.7(H) 11.0 - 15.0 % 10/26/2024 6:46 AM EDT [facility] Platelets 107(L) 140 - 400 10E3/uL 10/26/2024 6:46 AM EDT [facility] MPV 7.4(L) 7.5 - 11.5 fL 10/26/2024 6:46 AM EDT [facility] Whole Blood 10/26/2024 6:10 AM EDT 10/26/2024 6:26 AM EDT Sveta Judge MD LAB BLOOD ORDERABLES Final Resu lt Performing Organization Address [facility] Co de Phone Number [facility] [address] [place] [address] * (ABNORMAL) POC INR (10/26/2024 5:16 AM EDT) Prothrombin Time INR, POC 2.4(H) 0.8 - 1.4 10/27/2024 6:51 AM EDT [facility] Comment: Test results may [...] TEST ORDERABLES Final Result Performing Organization Address [facility] Co de Phone Number [facility] [address] * POC Sample Type (10/26/2024 5:14 AM EDT) POC Sample Type Arterial 10/26/2024 5:31 AM EDT [facility] Blood, Arterial 10/26/2024 5 :14 AM EDT 10/26/2024 5:31 AM EDT Harvey Domínguez III, MD POINT OF CARE TEST ORDERABLES Final Result Performing Organization Address [facility] Co de Phone Number [facility] [address] [place] [address] * POC Anion Gap (10/26/2024 5:14 AM EDT) POC Anion Gap, Arterial 12 3 - 16 mmol/L 10/26/2024 5:31 AM EDT [facility] Blood, Arterial 10/26/2024 5 :14 AM EDT 10/26/2024 5:31 AM EDT us Harvey Domínguez III, MD POINT OF CARE TEST ORDERABLES Final Result [facility] [address] [facility]. [address] * POC Chloride (10/26/2024 5:14 AM EDT) [facility] POC Chloride 104 98 - 110 mmol/L 10/26/2024 5:31 AM EDT [facility] Blood, Arterial 10/26/2024 5 :14 AM EDT 10/26/2024 5:31 AM EDT us Harvey Domínguez III, MD POINT OF CARE TEST ORDERABLES Final Result Performing Organization Address [facility] Co de Phone Number [facility] [address] [facility]. [address] * (ABNORMAL) POC Hemoglobin (10/26/2024 5:14 AM EDT) [facility] POC Hemoglobin 9.5(L) 14.0 - 18.0 g/dL 10/26/2024 5:31 AM EDT [facility] Blood, Arterial 10/26/2024 5 :14 AM EDT 10/26/2024 5:31 AM EDT us Harvey Domínguez III, MD POINT OF CARE TEST ORDERABLES Final Result Performing Organization Address City/[facility] Co de Phone Number [facility] [address] [place] [facility]. [address] * (ABNORMAL) POC hematocrit (10/26/2024 5:14 AM EDT) POC Hematocrit 28.0(L) 40 - 52 % 10/26/2024 5:31 AM EDT [facility] Blood, Arterial 10/26/2024 5 :14 AM EDT 10/26/2024 5:31 AM EDT us Harvey Domínguez III, MD POINT OF CARE TEST ORDERABLES Final Result Performing Organization Address City/[facility] Co de Phone Number [facility] [address] [place] [address]. [address] * POC Lactate (10/26/2024 5:14 AM EDT) [facility] POC Lactate 1.76 0.50 - 2.20 mmol/L 10/26/2024 5:31 AM EDT [facility] Blood, Arterial 10/26/2024 5 :14 AM EDT 10/26/2024 5:31 AM EDT us Harvey Domínguez III, MD POINT OF CARE TEST ORDERABLES Final Result Performing Organization Address [facility] Co de Phone Number [facility] [address] [place] [address]. [address] * (ABNORMAL) POC Glucose (10/26/2024 5:14 AM EDT) [facility] POC Glucose, Arterial 183(H) 70 - 100 mg/dL 10/26/2024 5:31 AM EDT [facility] Blood, Arterial 10/26/2024 5 :14 AM EDT 10/26/2024 5:31 AM EDT us Harvey Domínguez III, MD POINT OF CARE TEST ORDERABLES Final Result Performing Organization Address City/[facility] Co de Phone Number [facility] [address] [place] [address]. [address] * (ABNORMAL) POC Ionized Calcium (10/26/2024 5:14 AM EDT) Pathologist [facility] POC Ionized Calcium 5.50(H) 4.50 - 5.30 mg/dL 10/26/2024 5:31 AM EDT [facility] Blood, Arterial 10/26/2024 5 :14 AM EDT 10/26/2024 5:31 AM EDT us Harvey Domínguez III, MD POINT OF CARE TEST ORDERABLES Final Result Performing Organization Address City/[facility] Co de Phone Number [facility] [address] [place] [address]. [address] * (ABNORMAL) POC Potassium (10/26/2024 5:14 AM EDT) POC Potassium 2.8(LL) 3.5 - 5.3 mmol/L 10/26/2024 5:31 AM EDT [facility] Blood, Arterial 10/26/2024 5 :14 AM EDT 10/26/2024 5:31 AM EDT us Harvey Domínguez III, MD POINT OF CARE TEST ORDERABLES Final Result Performing Organization Address [facility] Co de Phone Number [facility] [address] [facility]. [address] * POC Sodium (10/26/2024 5:14 AM EDT) POC Sodium 138 136 - 146 mmol/L 10/26/2024 5:31 AM EDT [facility] Blood, Arterial 10/26/2024 5 :14 AM EDT 10/26/2024 5:31 AM EDT us Harvey Domínguez III, MD POINT OF CARE TEST ORDERABLES Final Result Performing Organization Address City/[facility] Co de Phone Number [facility] [address] [facility]. [address] * POC TCO2 (10/26/2024 5:14 AM EDT) POC TCO2, Arterial 23 23 - 27 mmol/L 10/26/2024 5:31 AM EDT [facility] Blood, Arterial 10/26/2024 5 :14 AM EDT 10/26/2024 5:31 AM EDT Harvey Domínguez III, MD POINT OF CARE TEST ORDERABLES Final Result Performing Organization Address City/[facility]/ZIP Co de Phone Number [facility] [address] [facility]. [address] * (ABNORMAL) POC O2 SAT (10/26/2024 5:14 AM EDT) POC O2 Saturation, Arterial 99(H) 95 - 98 % 10/26/2024 5:31 AM EDT [facility] Blood, Arterial 10/26/2024 5 :14 AM EDT 10/26/2024 5:31 AM EDT Harvey Domínguez III, MD POINT OF CARE TEST ORDERABLES Final Result Performing Organization Address [facility] Co de Phone Number [facility] [address] * (ABNORMAL) POC Base Excess (10/26/2024 5:14 AM EDT) POC Base Excess, Arterial -5(L) -2 - 3 mmol/L 10/26/2024 5:31 AM EDT [facility] Blood, Arterial 10/26/2024 5 :14 AM EDT 10/26/2024 5:31 AM EDT Harvey Domínguez III, MD POINT OF CARE TEST ORDERABLES Final Result Performing Organization Address City/[facility] Co de Phone Number [facility] [address] * POC HCO3 (10/26/2024 5:14 AM EDT) POC HCO3, Arterial 22 22 - 26 mmol/L 10/26/2024 5:31 AM EDT [facility] Blood, Arterial 10/26/2024 5 :14 AM EDT 10/26/2024 5:31 AM EDT us Harvey Domínguez III, MD POINT OF CARE TEST ORDERABLES Final Result Performing Organization Address City/[facility] Co de Phone Number [facility] [address] [facility]. [address] * (ABNORMAL) POC PO2 (10/26/2024 5:14 AM EDT) POC pO2, Arterial 133(H) 80 - 100 mm Hg 10/26/2024 5:31 AM EDT [facility] Blood, Arterial 10/26/2024 5 :14 AM EDT 10/26/2024 5:31 AM EDT Harvey Domínguez III, MD POINT OF CARE TEST ORDERABLES Final Result Performing Organization Address [facility] Co de Phone Number [facility] [address] [place] [facility]. [address] * POC PCO2 (10/26/2024 5:14 AM EDT) POC pCO2, Arterial 45 35 - 45 mm Hg 10/26/2024 5:31 AM EDT [facility] Blood, Arterial 10/26/2024 5 :14 AM EDT 10/26/2024 5:31 AM EDT Harvey Domínguez III, MD POINT OF CARE TEST ORDERABLES Final Result Performing Organization Address City/[facility] Co de Phone Number [facility] [address] * (ABNORMAL) POC pH (10/26/2024 5:14 AM EDT) POC pH, Arterial 7.29(L) 7.35 - 7.45 10/26/2024 5:31 AM EDT [facility] Blood, Arterial 10/26/2024 5 :14 AM EDT 10/26/2024 5:31 AM EDT Result [facility] Harvey Domínguez III, MD POINT OF CARE TEST ORDERABLES Final Result Performing Organization Address [facility] Co de Phone Number [facility] [address] [facility]. [address] * Transfuse Cryoprecipitate (10/26/2024 4:37 AM EDT) Result [facility] Eber Quinones MD NURSING TREATMENT ORDERA BLES - BLOOD ADMIN Final Result * Transfuse Cryoprecipitate (10/26/2024 4:37 AM EDT) Result [facility] Eber Quinones MD NURSING TREATMENT [...] 4:27 AM EDT 10/27/2024 6:51 AM EDT Result [facility] Harvey Domínguez III, MD POINT OF CARE TEST ORDERABLES Final Result Performing Organization Address [facility] Co de Phone Number [facility] [address] * POC Sample Type (10/26/2024 4:24 AM EDT) POC Sample Type Arterial 10/26/2024 5:09 AM EDT [facility] Blood, Arterial 10/26/2024 4 :24 AM EDT 10/26/2024 5:09 AM EDT us Harvey Domínguez III, MD POINT OF CARE TEST ORDERABLES Final Result Performing Organization Address City/[facility] Co de Phone Number [facility] [id number] [facility]. [address] * POC Anion Gap (10/26/2024 4:24 AM EDT) POC Anion Gap, Arterial 14 3 - 16 mmol/L 10/26/2024 5:09 AM EDT [facility] Blood, Arterial 10/26/2024 4 :24 AM EDT 10/26/2024 5:09 AM EDT us Harvey Domínguez III, MD POINT OF CARE TEST ORDERABLES Final Result Performing Organization Address [facility] Co de Phone Number [address] [facility]. [address] * POC Chloride (10/26/2024 4:24 AM EDT) POC Chloride 103 98 - 110 mmol/L 10/26/2024 5:09 AM EDT [facility] Blood, Arterial 10/26/2024 4 :24 AM EDT 10/26/2024 5:09 AM EDT us Harvey Domínguez III, MD POINT OF CARE TEST ORDERABLES Final Result Performing Organization Address City/[facility] Co de Phone Number [facility]. [address] * (ABNORMAL) POC Hemoglobin (10/26/2024 4:24 AM EDT) POC Hemoglobin 10.3(L) 14.0 - 18.0 g/dL 10/26/2024 5:09 AM EDT [facility] Blood, Arterial 10/26/2024 4 :24 AM EDT 10/26/2024 5:09 AM EDT us Harvey Domínguez III, MD POINT OF CARE TEST ORDERABLES Final Result Performing Organization Address City/[facility] Co de Phone Number [facility] [address] [place] [address]. [address] * (ABNORMAL) POC hematocrit (10/26/2024 4:24 AM EDT) POC Hematocrit 30.0(L) 40 - 52 % 10/26/2024 5:09 AM EDT [facility] Blood, Arterial 10/26/2024 4 :24 AM EDT 10/26/2024 5:09 AM EDT us Harvey Domínguez III, MD POINT OF CARE TEST ORDERABLES Final Result Performing Organization Address [facility] Co de Phone Number [facility] [address] [place] [address]. [address] * (ABNORMAL) POC Lactate (10/26/2024 4:24 AM EDT) POC Lactate 2.43(H) 0.50 - 2.20 mmol/L 10/26/2024 5:09 AM EDT [facility] Blood, Arterial 10/26/2024 4 :24 AM EDT 10/26/2024 5:09 AM EDT us Harvey Domínguez III, MD POINT OF CARE TEST ORDERABLES Final Result Performing Organization Address City/[facility] Co de Phone Number [facility]. [address] * (ABNORMAL) POC Glucose (10/26/2024 4:24 AM EDT) POC Glucose, Arterial 185(H) 70 - 100 mg/dL 10/26/2024 5:09 AM EDT [facility] Blood, Arterial 10/26/2024 4 :24 AM EDT 10/26/2024 5:09 AM EDT us Harvey Domínguez III, MD POINT OF CARE TEST ORDERABLES Final Result Performing Organization Address [facility]/ZIP Co de Phone Number [facility] [address] [facility]. [address] * POC Ionized Calcium (10/26/2024 4:24 AM EDT) POC Ionized Calcium 5.20 4.50 - 5.30 mg/dL 10/26/2024 5:09 AM EDT [facility] Blood, Arterial 10/26/2024 4 :24 AM EDT 10/26/2024 5:09 AM EDT Harvey Domínguez III, MD POINT OF CARE TEST ORDERABLES Final Result Performing Organization Address [facility] Co de Phone Number [facility] [address] [facility]. [address] * (ABNORMAL) POC Potassium (10/26/2024 4:24 AM EDT) POC Potassium 2.8(LL) 3.5 - 5.3 mmol/L 10/26/2024 5:09 AM EDT [facility] Blood, Arterial 10/26/2024 4 :24 AM EDT 10/26/2024 5:09 AM EDT Harvey Domínguez III, MD POINT OF CARE TEST ORDERABLES Final Result Performing Organization Address [facility] Co de Phone Number [facility]. [address] * POC Sodium (10/26/2024 4:24 AM EDT) POC Sodium 139 136 - 146 mmol/L 10/26/2024 5:09 AM EDT [facility] Blood, Arterial 10/26/2024 4 :24 AM EDT 10/26/2024 5:09 AM EDT Harvey Domínguez III, MD POINT OF CARE TEST ORDERABLES Final Result [facility] [address] [place] * POC TCO2 (10/26/2024 4:24 AM EDT) POC TCO2, Arterial 23 23 - 27 mmol/L 10/26/2024 5:09 AM EDT [facility] Blood, Arterial 10/26/2024 4 :24 AM EDT 10/26/2024 5:09 AM EDT us Harvey Domínguez III, MD POINT OF CARE TEST ORDERABLES Final Result Performing Organization Address [facility] Co de Phone Number [facility] [address] [facility]. [address] * POC O2 SAT (10/26/2024 4:24 AM EDT) POC O2 Saturation, Arterial 96 95 - 98 % 10/26/2024 5:09 AM EDT [facility] Blood, Arterial 10/26/2024 4 :24 AM EDT 10/26/2024 5:09 AM EDT us Harvey Domínguez III, MD POINT OF CARE TEST ORDERABLES Final Result Performing Organization Address [facility]/ZIP Co de Phone Number [facility] [address] [facility]. [address] * (ABNORMAL) POC Base Excess (10/26/2024 4:24 AM EDT) POC Base Excess, Arterial -5(L) -2 - 3 mmol/L 10/26/2024 5:09 AM EDT [facility] Blood, Arterial 10/26/2024 4 :24 AM EDT 10/26/2024 5:09 AM EDT us Harvey Domínguez III, MD POINT OF CARE TEST ORDERABLES Final Result [facility] [address] [place] * POC HCO3 (10/26/2024 4:24 AM EDT) POC HCO3, Arterial 22 22 - 26 mmol/L 10/26/2024 5:09 AM EDT [facility] Blood, Arterial 10/26/2024 4 :24 AM EDT 10/26/2024 5:09 AM EDT Harvey Domínguez III, MD POINT OF CARE TEST ORDERABLES Final Result [facility] [address] [place] * POC PO2 (10/26/2024 4:24 AM EDT) POC pO2, Arterial 93 80 - 100 mm Hg 10/26/2024 5:09 AM EDT [facility] Blood, Arterial 10/26/2024 4 :24 AM EDT 10/26/2024 5:09 AM EDT Harvey Domínguez III, MD POINT OF CARE TEST ORDERABLES Final Result Performing Organization Address City/[facility]/ZIP Co de Phone Number [facility] [address] * POC PCO2 (10/26/2024 4:24 AM EDT) POC pCO2, Arterial 44 35 - 45 mm Hg 10/26/2024 5:09 AM EDT [facility] Blood, Arterial 10/26/2024 4 :24 AM EDT 10/26/2024 5:09 AM EDT us Harvey Domínguez III, MD POINT OF CARE TEST ORDERABLES Final Result [facility] [address] * (ABNORMAL) POC pH (10/26/2024 4:24 AM EDT) POC pH, Arterial 7.30(L) 7.35 - 7.45 10/26/2024 5:09 AM EDT [facility] Blood, Arterial 10/26/2024 4 :24 AM EDT 10/26/2024 5:09 AM EDT us Harvey Domínguez III, MD POINT OF CARE TEST ORDERABLES Final Result Performing Organization Address City/[facility]/ZIP Co de Phone Number [facility] [address] [facility]. [address] * Transfuse Platelets (10/26/2024 4:14 AM EDT) us Ben Blake MD NURSING TREATMENT ORDERABLES - BLOOD ADMIN Final Result * Transfuse Fresh Frozen Plasma (10/26/2024 3:47 AM EDT) Result [facility] Ben Blake MD NURSING TREATMENT ORDERABLES - BLOOD ADMIN Final Result * (ABNORMAL) POC INR (10/26/2024 3:34 AM EDT) Pathologist [facility] Prothrombin Time INR, POC 2.8(H) 0.8 - 1.4 10/27/2024 6:51 AM EDT [facility] Comment: Test results may [...] TEST ORDERABLES Final Result Performing Organization Address City/[facility] Co de Phone Number [facility] [address] [facility]. [address] * POC Sample Type (10/26/2024 3:31 AM EDT) POC Sample Type Arterial 10/26/2024 4:11 AM EDT [facility] Blood, Arterial 10/26/2024 3 :31 AM EDT 10/26/2024 4:11 AM EDT us Harvey Domínguez III, MD POINT OF CARE TEST ORDERABLES Final Result [facility] [address] [facility]. [address] * POC Anion Gap (10/26/2024 3:31 AM EDT) Pathologist [facility] POC Anion Gap, Arterial 15 3 - 16 mmol/L 10/26/2024 4:11 AM EDT [facility] Blood, Arterial 10/26/2024 3 :31 AM EDT 10/26/2024 4:11 AM EDT us Harvey Domínguez III, MD POINT OF CARE TEST ORDERABLES Final Result Performing Organization Address [facility] Co de Phone Number [facility] [address] [facility]. [address] * POC Chloride (10/26/2024 3:31 AM EDT) [facility] POC Chloride 105 98 - 110 mmol/L 10/26/2024 4:11 AM EDT [facility] Blood, Arterial 10/26/2024 3 :31 AM EDT 10/26/2024 4:11 AM EDT us Harvey Domínguez III, MD POINT OF CARE TEST ORDERABLES Final Result Performing Organization Address City/[facility] Co de Phone Number [facility] [address] [facility]. [address] * (ABNORMAL) POC Hemoglobin (10/26/2024 3:31 AM EDT) Pathologist [facility] POC Hemoglobin 9.7(L) 14.0 - 18.0 g/dL 10/26/2024 4:11 AM EDT [facility] Blood, Arterial 10/26/2024 3 :31 AM EDT 10/26/2024 4:11 AM EDT us Harvey Domínguez III, MD POINT OF CARE TEST ORDERABLES Final Result Performing Organization Address City/[facility] Co de Phone Number [facility] [address] * (ABNORMAL) POC hematocrit (10/26/2024 3:31 AM EDT) POC Hematocrit 29.0(L) 40 - 52 % 10/26/2024 4:11 AM EDT [facility] Blood, Arterial 10/26/2024 3 :31 AM EDT 10/26/2024 4:11 AM EDT us Harvey Domínguez III, MD POINT OF CARE TEST ORDERABLES Final Result Performing Organization Address [facility] Co de Phone Number [facility] [address] * (ABNORMAL) POC Lactate (10/26/2024 3:31 AM EDT) POC Lactate 3.54(H) 0.50 - 2.20 mmol/L 10/26/2024 4:11 AM EDT [facility] Blood, Arterial 10/26/2024 3 :31 AM EDT 10/26/2024 4:11 AM EDT us Harvey Domínguez III, MD POINT OF CARE TEST ORDERABLES Final Result Performing Organization Address City/[facility] Co de Phone Number [facility] [address] [place] [facility]. [address] * (ABNORMAL) POC Glucose (10/26/2024 3:31 AM EDT) POC Glucose, Arterial 153(H) 70 - 100 mg/dL 10/26/2024 4:11 AM EDT [facility] Blood, Arterial 10/26/2024 3 :31 AM EDT 10/26/2024 4:11 AM EDT us Harvey Domínguez III, MD POINT OF CARE TEST ORDERABLES Final Result Performing Organization Address City/[facility] Co de Phone Number [facility] [address] [facility]. [address] * POC Ionized Calcium (10/26/2024 3:31 AM EDT) POC Ionized Calcium 5.10 4.50 - 5.30 mg/dL 10/26/2024 4:11 AM EDT [facility] Blood, Arterial 10/26/2024 3 :31 AM EDT 10/26/2024 4:11 AM EDT us Harvey Domínguez III, MD POINT OF CARE TEST ORDERABLES Final Result Performing Organization Address [facility] Co de Phone Number [facility] [address] [place] [facility]. [address] * (ABNORMAL) POC Potassium (10/26/2024 3:31 AM EDT) [facility] POC Potassium 2.6(LL) 3.5 - 5.3 mmol/L 10/26/2024 4:11 AM EDT [facility] Blood, Arterial 10/26/2024 3 :31 AM EDT 10/26/2024 4:11 AM EDT Harvey Domínguez III, MD POINT OF CARE TEST ORDERABLES Final Result Performing Organization Address City/[facility] Co de Phone Number [facility] [address] [facility]. [address] * POC Sodium (10/26/2024 3:31 AM EDT) Pathologist [facility] POC Sodium 138 136 - 146 mmol/L 10/26/2024 4:11 AM EDT [facility] Blood, Arterial 10/26/2024 3 :31 AM EDT 10/26/2024 4:11 AM EDT us Harvey Domínguez III, MD POINT OF CARE TEST ORDERABLES Final Result Performing Organization Address City/[facility] Co de Phone Number [facility] [address] [facility]. [address] * (ABNORMAL) POC TCO2 (10/26/2024 3:31 AM EDT) POC TCO2, Arterial 19(L) 23 - 27 mmol/L 10/26/2024 4:11 AM EDT [facility] Blood, Arterial 10/26/2024 3 :31 AM EDT 10/26/2024 4:11 AM EDT us Harvey Domínguez III, MD POINT OF CARE TEST ORDERABLES Final Result Performing Organization Address [facility] Co de Phone Number [facility] [address] [facility]. [address] * POC O2 SAT (10/26/2024 3:31 AM EDT) POC O2 Saturation, Arterial 97 95 - 98 % 10/26/2024 4:11 AM EDT [facility] Blood, Arterial 10/26/2024 3 :31 AM EDT 10/26/2024 4:11 AM EDT us Harvey Domínguez III, MD POINT OF CARE TEST ORDERABLES Final Result Performing Organization Address City/[facility] Co de Phone Number [facility] [address] [facility]. [address] * (ABNORMAL) POC Base Excess (10/26/2024 3:31 AM EDT) POC Base Excess, Arterial -9(L) -2 - 3 mmol/L 10/26/2024 4:11 AM EDT [facility] Blood, Arterial 10/26/2024 3 :31 AM EDT 10/26/2024 4:11 AM EDT Harvey Domínguez III, MD POINT OF CARE TEST ORDERABLES Final Result Performing Organization Address [facility] Co de Phone Number [facility] [address] [facility]. [address] * (ABNORMAL) POC HCO3 (10/26/2024 3:31 AM EDT) POC HCO3, Arterial 18(L) 22 - 26 mmol/L 10/26/2024 4:11 AM EDT [facility] Blood, Arterial 10/26/2024 3 :31 AM EDT 10/26/2024 4:11 AM EDT Harvey Domínguez III, MD POINT OF CARE TEST ORDERABLES Final Result Performing Organization Address [facility] Co de Phone Number [facility] [address] [facility]. [address] * (ABNORMAL) POC PO2 (10/26/2024 3:31 AM EDT) POC pO2, Arterial 104(H) 80 - 100 mm Hg 10/26/2024 4:11 AM EDT [facility] Blood, Arterial 10/26/2024 3 :31 AM EDT 10/26/2024 4:11 AM EDT Harvey Domínguez III, MD POINT OF CARE TEST ORDERABLES Final Result Performing Organization Address City/[facility] Co de Phone Number [facility] [address] [facility]. [address] * POC PCO2 (10/26/2024 3:31 AM EDT) POC pCO2, Arterial 42 35 - 45 mm Hg 10/26/2024 4:11 AM EDT [facility] Blood, Arterial 10/26/2024 3 :31 AM EDT 10/26/2024 4:11 AM EDT Harvey Domínguez III, MD POINT OF CARE TEST ORDERABLES Final Result [facility] [address] * (ABNORMAL) POC pH (10/26/2024 3:31 AM EDT) POC pH, Arterial 7.24(L) 7.35 - 7.45 10/26/2024 4:11 AM EDT [facility] Blood, Arterial 10/26/2024 3 :31 AM EDT 10/26/2024 4:11 AM EDT Harvey Domínguez III, MD POINT OF CARE TEST ORDERABLES Final Result Performing Organization Address [facility] Co de Phone Number [facility] [address] * (ABNORMAL) TEG-Global With Lysis (Baseline TEG with LY30, Will NOT Show Heparin Effect) (53:31 AM EDT) Citrated Kaolin Reaction Time (TEGLYSIS) 6.8 4.6 - 9.1 minutes 10/26/2024 5:02 AM EDT [facility] Citrated Rapid Teg Maximum Amplitude (TEGLYSIS) <40.0(L) 52.0 - 70.0 mm 10/26/2024 5:02 AM EDT [facility] Citrated Functional Fibrinogen Maximum Amplitude (TEGLYSIS) <4.0(L) 15.0 - 32.0 mm 10/26/2024 5:02 AM EDT [facility] Citrated Kaolin Percent Lysis (TEGLYSIS) 1.4 0.0 - 2.6 % 10/26/2024 5:02 AM EDT [facility] Whole Blood (Citrate) 10/26/2024 3:31 AM EDT 10/26/2024 3:40 AM EDT Eber Quinones MD LAB BLOOD ORDERABLES Fin al Result [facility] [address] * (ABNORMAL) CBC (10/26/2024 3:31 AM EDT) WBC 9.5 3.8 - 10.8 10E3/uL 10/26/2024 3:48 AM EDT [facility] RBC 3.68(L) 4.20 - 5.80 10E6/uL 10/26/2024 3:48 AM EDT [facility] Hemoglobin 11.5(L) 13.2 - 17.1 g/dL 10/26/2024 3:48 AM EDT [facility] Hematocrit 33.0(L) 38.5 - 50.0 % 10/26/2024 3:48 AM EDT [facility] MCV 89.6 80.0 - 100.0 fL 10/26/2024 3:48 AM EDT [facility] MCH 31.1 27.0 - 33.0 pg 10/26/2024 3:48 AM EDT [facility] MCHC 34.8 32.0 - 36.0 g/dL 10/26/2024 3:48 AM EDT [facility] RDW 19.3(H) 11.0 - 15.0 % 10/26/2024 3:48 AM EDT [facility] Platelets 67(L) 140 - 400 10E3/uL 10/26/2024 3:48 AM EDT [facility] MPV 7.9 7.5 - 11.5 fL 10/26/2024 3:48 AM EDT [facility] Whole Blood 10/26/2024 3:31 AM EDT 10/26/2024 3:40 AM EDT Eber Quinones MD LAB BLOOD ORDERABLES Fin al Result [facility] [address] * (ABNORMAL) Protime-INR (10/26/2024 3:31 AM EDT) Protime 27.0(H) 12.1 - 15.1 seconds 10/26/2024 3:51 AM EDT [facility] INR 2.4(H) 0.9 - 1.1 10/26/2024 3:51 AM EDT [facility] Comment: RECOMMENDED THERAPEUTIC RANGES USING INR : Stable oral anticoagulant therapy: 2.0 - 3.0 Mechanical prosthetic heart valve: 2.5 - 3.5 Recurrent acute myocardial infarction: 2.5 - 3.5 Plasma 10/26/2024 3:31 AM EDT 10/26/2024 3:40 AM EDT Result [facility] Eber Quinones MD LAB BLOOD ORDERABLES Fin al Result Performing Organization Address [facility] Co de Phone Number [facility] [address] [facility]. [address] * (ABNORMAL) Fibrinogen (10/26/2024 3:31 AM EDT) Fibrinogen 104(L) 218 - 406 mg/dL 10/26/2024 3:56 AM EDT [facility] Plasma 10/26/2024 3:31 AM EDT 10/26/2024 3:40 AM EDT Result [facility] Eber Quinones MD LAB BLOOD ORDERABLES Fin al Result Performing Organization Address [facility] Co de Phone Number [facility] [address] [facility]. [address] * Transfuse Fresh Frozen Plasma (10/26/2024 3:16 AM EDT) Result [facility] Ben Blake MD NURSING TREATMENT ORDERABLES - BLOOD ADMIN Final Result * Transfuse Fresh Frozen Plasma (10/26/2024 3:15 AM EDT) Result [facility] Ben Blake MD NURSING TREATMENT [...] (ABNORMAL) POC INR (10/26/2024 1:43 AM EDT) [facility] Prothrombin Time INR, POC 1.9(H) 0.8 - 1.4 10/27/2024 6:51 AM EDT [facility] Comment: Test results may vary using different testing platforms. Serial result monitoring should be performed using the same methodology. RECOMMENDED THERAPEUTIC RANGES USING INR : Stable oral anticoagulant therapy: 2.0 - 3.0 Mechanical prosthetic heart valve: 2.5 - 3.5 Recurrent acute myocardial infarction: 2.5 - 3.5 Blood 10/26/2024 1:43 AM EDT 10/27/2024 6:51 AM EDT Result Tiburcio Domínguez III, MD POINT OF CARE TEST ORDERABLES Final Result Performing Organization Address City/[facility]/ZIP Co de Phone Number [facility] [address] [place] * Transfuse Fresh Frozen Plasma (10/26/2024 1:41 AM EDT) Ben Blake MD NURSING TREATMENT ORDERABLES - BLOOD ADMIN Final Result * Transfuse RBC (10/26/2024 1:40 AM EDT) Ben Blake MD NURSING TREATMENT ORDERABLES - BLOOD ADMIN Final Result * POC Sample Type (10/26/2024 1:40 AM EDT) POC Sample Type Arterial 10/26/2024 2:32 AM EDT [facility] Blood, Arterial 10/26/2024 1 :40 AM EDT 10/26/2024 2:32 AM EDT Harvey Domínguez III, MD POINT OF CARE TEST ORDERABLES Final Result Performing Organization Address City/[facility]/ZIP Co de Phone Number [facility] [address] [place] [facility]. [address] * POC Anion Gap (10/26/2024 1:40 AM EDT) Pathologist [facility] POC Anion Gap, Arterial 13 3 - 16 mmol/L 10/26/2024 2:32 AM EDT [facility] Blood, Arterial 10/26/2024 1 :40 AM EDT 10/26/2024 2:32 AM EDT Harvey Domínguez III, MD POINT OF CARE TEST ORDERABLES Final Result [facility] [address] [facility]. [address] * POC Chloride (10/26/2024 1:40 AM EDT) POC Chloride 104 98 - 110 mmol/L 10/26/2024 2:32 AM EDT [facility] Blood, Arterial 10/26/2024 1 :40 AM EDT 10/26/2024 2:32 AM EDT us Harvey Domínguez III, MD POINT OF CARE TEST ORDERABLES Final Result Performing Organization Address City/[facility]/ZIP Co de Phone Number [facility] [address] [facility]. [address] * (ABNORMAL) POC Hemoglobin (10/26/2024 1:40 AM EDT) POC Hemoglobin 7.4(L) 14.0 - 18.0 g/dL 10/26/2024 2:32 AM EDT [facility] Blood, Arterial 10/26/2024 1 :40 AM EDT 10/26/2024 2:32 AM EDT us Harvey Domínguez III, MD POINT OF CARE TEST ORDERABLES Final Result Performing Organization Address [facility] Co de Phone Number [facility] [address] [facility]. [address] * (ABNORMAL) POC hematocrit (10/26/2024 1:40 AM EDT) POC Hematocrit 22.0(L) 40 - 52 % 10/26/2024 2:32 AM EDT [facility] Blood, Arterial 10/26/2024 1 :40 AM EDT 10/26/2024 2:32 AM EDT us Harvey Domínguez III, MD POINT OF CARE TEST ORDERABLES Final Result Performing Organization Address City/[facility] Co de Phone Number [facility] [address] [place] [facility]. [address] * (ABNORMAL) POC Lactate (10/26/2024 1:40 AM EDT) POC Lactate 2.30(H) 0.50 - 2.20 mmol/L 10/26/2024 2:32 AM EDT [facility] Blood, Arterial 10/26/2024 1 :40 AM EDT 10/26/2024 2:32 AM EDT us Harvey Domínguez III, MD POINT OF CARE TEST ORDERABLES Final Result [facility] [address] [facility]. [address] * (ABNORMAL) POC Glucose (10/26/2024 1:40 AM EDT) POC Glucose, Arterial 116(H) 70 - 100 mg/dL 10/26/2024 2:32 AM EDT [facility] Blood, Arterial 10/26/2024 1 :40 AM EDT 10/26/2024 2:32 AM EDT us Harvey Domínguez III, MD POINT OF CARE TEST ORDERABLES Final Result Performing Organization Address City/[facility]/ZIP Co de Phone Number [facility] [address] [facility]. [address] * (ABNORMAL) POC Ionized Calcium (10/26/2024 1:40 AM EDT) POC Ionized Calcium 4.10(L) 4.50 - 5.30 mg/dL 10/26/2024 2:32 AM EDT [facility] Blood, Arterial 10/26/2024 1 :40 AM EDT 10/26/2024 2:32 AM EDT Harvey Domínguez III, MD POINT OF CARE TEST ORDERABLES Final Result [facility] [facility] [address] [facility]. [address] * (ABNORMAL) POC Potassium (10/26/2024 1:40 AM EDT) POC Potassium 2.6(LL) 3.5 - 5.3 mmol/L 10/26/2024 2:32 AM EDT [facility] Blood, Arterial 10/26/2024 1 :40 AM EDT 10/26/2024 2:32 AM EDT us Harvey Domínguez III, MD POINT OF CARE TEST ORDERABLES Final Result Performing Organization Address [facility]/ZIP Co de Phone Number [facility] [address] * (ABNORMAL) POC Sodium (10/26/2024 1:40 AM EDT) POC Sodium 135(L) 136 - 146 mmol/L 10/26/2024 2:32 AM EDT [facility] Blood, Arterial 10/26/2024 1 :40 AM EDT 10/26/2024 2:32 AM EDT Harvey Domínguez III, MD POINT OF CARE TEST ORDERABLES Final Result Performing Organization Address [facility]/ZIP Co de Phone Number [facility] [address] [facility]. [address] * (ABNORMAL) POC TCO2 (10/26/2024 1:40 AM EDT) POC TCO2, Arterial 19(L) 23 - 27 mmol/L 10/26/2024 2:32 AM EDT [facility] Blood, Arterial 10/26/2024 1 :40 AM EDT 10/26/2024 2:32 AM EDT Harvey Domínguez III, MD POINT OF CARE TEST ORDERABLES Final Result Performing Organization Address [facility] Co de Phone Number [facility] [address] [facility]. [address] * (ABNORMAL) POC O2 SAT (10/26/2024 1:40 AM EDT) POC O2 Saturation, Arterial 99(H) 95 - 98 % 10/26/2024 2:32 AM EDT [facility] Blood, Arterial 10/26/2024 1 :40 AM EDT 10/26/2024 2:32 AM EDT us Harvey Domínguez III, MD POINT OF CARE TEST ORDERABLES Final Result Performing Organization Address [facility] Co de Phone Number [facility] [address] [facility]. [address] * (ABNORMAL) POC Base Excess (10/26/2024 1:40 AM EDT) POC Base Excess, Arterial -7(L) -2 - 3 mmol/L 10/26/2024 2:32 AM EDT [facility] Blood, Arterial 10/26/2024 1 :40 AM EDT 10/26/2024 2:32 AM EDT us Harvey Domínguez III, MD POINT OF CARE TEST ORDERABLES Final Result Performing Organization Address [facility] Co de Phone Number [facility] [address] [facility]. [address] * (ABNORMAL) POC HCO3 (10/26/2024 1:40 AM EDT) POC HCO3, Arterial 18(L) 22 - 26 mmol/L 10/26/2024 2:32 AM EDT [facility] Blood, Arterial 10/26/2024 1 :40 AM EDT 10/26/2024 2:32 AM EDT Harvey Domínguez III, MD POINT OF CARE TEST ORDERABLES Final Result Performing Organization Address [facility] Co de Phone Number [facility] [address] [place] [address]. [address] * (ABNORMAL) POC PO2 (10/26/2024 1:40 AM EDT) POC pO2, Arterial 145(H) 80 - 100 mm Hg 10/26/2024 2:32 AM EDT [facility] Blood, Arterial 10/26/2024 1 :40 AM EDT 10/26/2024 2:32 AM EDT Harvey Domínguez III, MD POINT OF CARE TEST ORDERABLES Final Result Performing Organization Address [facility] Co de Phone Number [facility] [address] [facility]. [address] * (ABNORMAL) POC PCO2 (10/26/2024 1:40 AM EDT) POC pCO2, Arterial 33(L) 35 - 45 mm Hg 10/26/2024 2:32 AM EDT [facility] Blood, Arterial 10/26/2024 1 :40 AM EDT 10/26/2024 2:32 AM EDT Harvey Domínguez III, MD POINT OF CARE TEST ORDERABLES Final Result Performing Organization Address [facility] Co de Phone Number [facility] [address] [facility]. [address] * POC pH (10/26/2024 1:40 AM EDT) POC pH, Arterial 7.35 7.35 - 7.45 10/26/2024 2:32 AM EDT [facility] Blood, Arterial 10/26/2024 1 :40 AM EDT 10/26/2024 2:32 AM EDT Harvey Domínguez III, MD POINT OF CARE TEST ORDERABLES Final Result Performing Organization Address [facility] Co de Phone Number [facility] [address] * Transfuse Fresh Frozen Plasma (10/26/2024 1:20 AM EDT) Result [facility] Ben Blake MD NURSING TREATMENT ORDERABLES - BLOOD ADMIN Final Result * Transfuse RBC (10/26/2024 12:56 AM EDT) Ben Blake MD NURSING TREATMENT ORDERABLES - BLOOD ADMIN Final Result * (ABNORMAL) POC INR (10/26/2024 12:41 AM EDT) Prothrombin Time INR, POC 2.0(H) 0.8 - 1.4 10/27/2024 6:51 AM EDT [facility] Comment: Test results may [...] TEST ORDERABLES Final Result Performing Organization Address City/[facility]/ZIP Co de Phone Number [facility] [address] [place] [address] * POC Sample Type (10/26/2024 12:39 AM EDT) Pathologist [facility] POC Sample Type Arterial 10/26/2024 1:38 AM EDT [facility] Blood, Arterial 10/26/2024 1 2:39 AM EDT 10/26/2024 1:38 AM EDT us Harvey Domínguez III, MD POINT OF CARE TEST ORDERABLES Final Result [facility] [address] [place] [address]. [address] * POC Anion Gap (10/26/2024 12:39 AM EDT) POC Anion Gap, Arterial 13 3 - 16 mmol/L 10/26/2024 1:38 AM EDT [facility] Blood, Arterial 10/26/2024 1 2:39 AM EDT 10/26/2024 1:38 AM EDT us Harvey Domínguez III, MD POINT OF CARE TEST ORDERABLES Final Result Performing Organization Address City/[facility] Co de Phone Number [facility] [address] * POC Chloride (10/26/2024 12:39 AM EDT) POC Chloride 103 98 - 110 mmol/L 10/26/2024 1:38 AM EDT [facility] Blood, Arterial 10/26/2024 1 2:39 AM EDT 10/26/2024 1:38 AM EDT us Harvey Domínguez III, MD POINT OF CARE TEST ORDERABLES Final Result Performing Organization Address [facility] Co de Phone Number [facility] [address] [facility]. [address] * (ABNORMAL) POC Hemoglobin (10/26/2024 12:39 AM EDT) POC Hemoglobin 7.9(L) 14.0 - 18.0 g/dL 10/26/2024 1:38 AM EDT [facility] Blood, Arterial 10/26/2024 1 2:39 AM EDT 10/26/2024 1:38 AM EDT us Harvey Domínguez III, MD POINT OF CARE TEST ORDERABLES Final Result Performing Organization Address [facility] Co de Phone Number [facility] [address] [facility]. [address] * (ABNORMAL) POC hematocrit (10/26/2024 12:39 AM EDT) POC Hematocrit 23.0(L) 40 - 52 % 10/26/2024 1:38 AM EDT [facility] Blood, Arterial 10/26/2024 1 2:39 AM EDT 10/26/2024 1:38 AM EDT us Harvey Domínguez III, MD POINT OF CARE TEST ORDERABLES Final Result [facility] [address] * POC Lactate (10/26/2024 12:39 AM EDT) POC Lactate 1.39 0.50 - 2.20 mmol/L 10/26/2024 1:38 AM EDT [facility] Blood, Arterial 10/26/2024 1 2:39 AM EDT 10/26/2024 1:38 AM EDT us Harvey Domínguez III, MD POINT OF CARE TEST ORDERABLES Final Result Performing Organization Address [facility] Co de Phone Number [facility] [address] [facility]. [address] * (ABNORMAL) POC Glucose (10/26/2024 12:39 AM EDT) POC Glucose, Arterial 116(H) 70 - 100 mg/dL 10/26/2024 1:38 AM EDT [facility] Blood, Arterial 10/26/2024 1 2:39 AM EDT 10/26/2024 1:38 AM EDT us Harvey Domínguez III, MD POINT OF CARE TEST ORDERABLES Final Result Performing Organization Address [facility] Co de Phone Number [facility] [address] [facility]. [address] * (ABNORMAL) POC Ionized Calcium (10/26/2024 12:39 AM EDT) POC Ionized Calcium 4.30(L) 4.50 - 5.30 mg/dL 10/26/2024 1:38 AM EDT [facility] Blood, Arterial 10/26/2024 1 2:39 AM EDT 10/26/2024 1:38 AM EDT us Harvey Domínguez III, MD POINT OF CARE TEST ORDERABLES Final Result Performing Organization Address City/State/[facility] Co de Phone Number [facility] [address] * (ABNORMAL) POC Potassium (10/26/2024 12:39 AM EDT) POC Potassium 2.4(LL) 3.5 - 5.3 mmol/L 10/26/2024 1:38 AM EDT [facility] Blood, Arterial 10/26/2024 1 2:39 AM EDT 10/26/2024 1:38 AM EDT us Harvey Domínguez III, MD POINT OF CARE TEST ORDERABLES Final Result Performing Organization Address City/[facility]/ZIP Co de Phone Number [facility] [address] * POC Sodium (10/26/2024 12:39 AM EDT) POC Sodium 136 136 - 146 mmol/L 10/26/2024 1:38 AM EDT [facility] Blood, Arterial 10/26/2024 1 2:39 AM EDT 10/26/2024 1:38 AM EDT us Harvey Domínguez III, MD POINT OF CARE TEST ORDERABLES Final Result Performing Organization Address City/[facility]/ZIP Co de Phone Number [facility] [address] * (ABNORMAL) POC TCO2 (10/26/2024 12:39 AM EDT) POC TCO2, Arterial 21(L) 23 - 27 mmol/L 10/26/2024 1:38 AM EDT [facility] Blood, Arterial 10/26/2024 1 2:39 AM EDT 10/26/2024 1:38 AM EDT us Harvey Domínguez III, MD POINT OF CARE TEST ORDERABLES Final Result [facility] [address] * POC O2 SAT (10/26/2024 12:39 AM EDT) POC O2 Saturation, Arterial 98 95 - 98 % 10/26/2024 1:38 AM EDT [facility] Blood, Arterial 10/26/2024 1 2:39 AM EDT 10/26/2024 1:38 AM EDT us Harvey Domínguez III, MD POINT OF CARE TEST ORDERABLES Final Result [facility] [address] * (ABNORMAL) POC Base Excess (10/26/2024 12:39 AM EDT) POC Base Excess, Arterial -7(L) -2 - 3 mmol/L 10/26/2024 1:38 AM EDT [facility] Blood, Arterial 10/26/2024 1 2:39 AM EDT 10/26/2024 1:38 AM EDT us Harvey Domínguez III, MD POINT OF CARE TEST ORDERABLES Final Result Performing Organization Address City/[facility]/ZIP Co de Phone Number [facility] [address] * (ABNORMAL) POC HCO3 (10/26/2024 12:39 AM EDT) POC HCO3, Arterial 20(L) 22 - 26 mmol/L 10/26/2024 1:38 AM EDT [facility] Blood, Arterial 10/26/2024 1 2:39 AM EDT 10/26/2024 1:38 AM EDT us Harvey Domínguez III, MD POINT OF CARE TEST ORDERABLES Final Result [facility] [address] * (ABNORMAL) POC PO2 (10/26/2024 12:39 AM EDT) POC pO2, Arterial 117(H) 80 - 100 mm Hg 10/26/2024 1:38 AM EDT [facility] Blood, Arterial 10/26/2024 1 2:39 AM EDT 10/26/2024 1:38 AM EDT Harvey Domínguez III, MD POINT OF CARE TEST ORDERABLES Final Result [facility] [address] * (ABNORMAL) POC PCO2 (10/26/2024 12:39 AM EDT) POC pCO2, Arterial 46(H) 35 - 45 mm Hg 10/26/2024 1:38 AM EDT [facility] Blood, Arterial 10/26/2024 1 2:39 AM EDT 10/26/2024 1:38 AM EDT us Harvey Domínguez III, MD POINT OF CARE TEST ORDERABLES Final Result Performing Organization Address City/[facility]/ZIP Co de Phone Number [facility] [address] * (ABNORMAL) POC pH (10/26/2024 12:39 AM EDT) POC pH, Arterial 7.24(L) 7.35 - 7.45 10/26/2024 1:38 AM EDT [facility] Blood, Arterial 10/26/2024 1 2:39 AM EDT 10/26/2024 1:38 AM EDT us Harvey Domínguez III, MD POINT OF CARE TEST ORDERABLES Final Result [facility] [address] * Transfuse Platelets (10/26/2024 12:37 AM EDT) us Ben Blake MD NURSING [...] AM EDT) Gram Stain Result Cytospin Results: [facility] Gram Stain Result Polymorphonuclear Leukocytes Seen; [facility] Gram Stain Result No Organisms Seen; [facility] Culture Result No Growth After 3 Days [facility] Surgical Swab ABDOMEN / Unknown 12:03 AM EDT Comment:2.) Ascites Anaerobhic culture Fungus culture Routine culture plus stain Narrative [facility] - 10/28/2024 9:38 PM EDT 2.) Ascites Anaerobhic culture Fungus culture Routine culture plus stain 2.) Ascites us Harvey Domínguez III, MD MICROBIOLOGY - GENE RAL ORDERABLES Final Result [facility] [address] [facility]. [address] * Surgical Pathology Exam (10/26/2024 12:00 AM EDT) 10/26/2024 10/27/2024 Narrative [facility] - 10/26/2024 12:00 AM EDT CASE: [id number] PATIENT: BLAIR GILBERT Clinical History: Liver - kidney transplant Pre-Operative Diagnosis: Alcoholic cirrhosis of liver Post-Operative Diagnosis: Alcoholic cirrhosis of liver Specimen(s) Submitted: A. sycuan liver CPT Code(s): 85516 X 1; 35227 X 5 Additional Information: FINAL DIAGNOSIS: A. 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 - Negative for neoplasm. - Increased hepatocellular iron deposition (3+; Modified Scheuer). Gall bladder: -Intramucosal and submucosal vascular congestion and hemorrhage. - Negative for dysplasia or malignancy. Gross Description: Received in formalin, labeled Blair Gilbert and sycuan liver , is a 2338-gram, hepatectomy specimen [...] discrete masses or other lesions are identified. Bore Miner Operator sections are submitted in cassettes [id number] as follows: A1: Hilar margins, en face. [...] signing this report is located at [facility], [address] [place] [address], Formerly [facility], , CLIA ID: [id number] us Harvey Domínguez III, MD PATHOLOGY/CYTOLOGY ORDERABLES Final Result [facility] * Transfuse Fresh Frozen Plasma (10/25/2024 11:47 PM EDT) Ben Blake MD NURSING TREATMENT ORDERABLES - BLOOD ADMIN Final Result * Transfuse RBC (10/25/2024 11:45 PM EDT) Ben Blake MD NURSING TREATMENT ORDERABLES - BLOOD ADMIN Final Result * Transfuse RBC (10/25/2024 11:45 PM EDT) Result [facility] Ben Blake MD NURSING TREATMENT ORDERABLES - BLOOD ADMIN Final Result * (ABNORMAL) POC INR (10/25/2024 11:43 PM EDT) Prothrombin Time INR, POC 1.7(H) 0.8 - 1.4 10/27/2024 6:51 AM EDT [facility] Comment: Test results may vary using different testing platforms. Serial result monitoring should be performed using the same methodology. RECOMMENDED THERAPEUTIC RANGES USING INR : Stable oral anticoagulant therapy: 2.0 - 3.0 Mechanical prosthetic heart valve: 2.5 - 3.5 Recurrent acute myocardial infarction: 2.5 - 3.5 Blood 10/25/2024 11:4 3 PM EDT 10/27/2024 6:51 AM EDT us Harvey Domínguez III, MD POINT OF CARE TEST ORDERABLES Final Result [facility] [address] * POC Sample Type (10/25/2024 11:40 PM EDT) POC Sample Type Arterial 10/25/2024 11:57 PM EDT [facility] Blood, Arterial 10/25/2024 1 1:40 PM EDT 10/25/2024 11:57 PM EDT Harvey Domínguez III, MD POINT OF CARE TEST ORDERABLES Final Result Performing Organization Address [facility] Co de Phone Number [facility] [address] * POC Anion Gap (10/25/2024 11:40 PM EDT) POC Anion Gap, Arterial 13 3 - 16 mmol/L 10/25/2024 11:57 PM EDT [facility] Blood, Arterial 10/25/2024 1 1:40 PM EDT 10/25/2024 11:57 PM EDT Harvey Domínguez III, MD POINT OF CARE TEST ORDERABLES Final Result Performing Organization Address [facility] Co de Phone Number [facility] [address] * POC Chloride (10/25/2024 11:40 PM EDT) POC Chloride 102 98 - 110 mmol/L 10/25/2024 11:57 PM EDT [facility] Blood, Arterial 10/25/2024 1 1:40 PM EDT 10/25/2024 11:57 PM EDT Harvey Domínguez III, MD POINT OF CARE TEST ORDERABLES Final Result [facility] [address] * (ABNORMAL) POC Hemoglobin (10/25/2024 11:40 PM EDT) POC Hemoglobin 6.6(L) 14.0 - 18.0 g/dL 10/25/2024 11:57 PM EDT [facility] Blood, Arterial 10/25/2024 1 1:40 PM EDT 10/25/2024 11:57 PM EDT us Harvey Domínguez III, MD POINT OF CARE TEST ORDERABLES Final Result [facility] [address] * (ABNORMAL) POC hematocrit (10/25/2024 11:40 PM EDT) Pathologist [facility] POC Hematocrit 19.0(L) 40 - 52 % 10/25/2024 11:57 PM EDT [facility] Blood, Arterial 10/25/2024 1 1:40 PM EDT 10/25/2024 11:57 PM EDT us Harvey Domínguez III, MD POINT OF CARE TEST ORDERABLES Final Result Performing Organization Address City/[facility]/ZIP Co de Phone Number [facility] [address] * POC Lactate (10/25/2024 11:40 PM EDT) POC Lactate 1.36 0.50 - 2.20 mmol/L 10/25/2024 11:57 PM EDT [facility] Blood, Arterial 10/25/2024 1 1:40 PM EDT 10/25/2024 11:57 PM EDT us Harvey Domínguez III, MD POINT OF CARE TEST ORDERABLES Final Result [facility] [address] * (ABNORMAL) POC Glucose (10/25/2024 11:40 PM EDT) POC Glucose, Arterial 101(H) 70 - 100 mg/dL 10/25/2024 11:57 PM EDT [facility] Blood, Arterial 10/25/2024 1 1:40 PM EDT 10/25/2024 11:57 PM EDT us Harvey Domínguez III, MD POINT OF CARE TEST ORDERABLES Final Result [facility] [address] * POC Ionized Calcium (10/25/2024 11:40 PM EDT) Pathologist [facility] POC Ionized Calcium 4.50 4.50 - 5.30 mg/dL 10/25/2024 11:57 PM EDT [facility] Blood, Arterial 10/25/2024 1 1:40 PM EDT 10/25/2024 11:57 PM EDT us Harvey Domínguez III, MD POINT OF CARE TEST ORDERABLES Final Result Performing Organization Address City/[facility] Co de Phone Number [facility] [address] [facility]. [address] * (ABNORMAL) POC Potassium (10/25/2024 11:40 PM EDT) Pathologist [facility] POC Potassium 1.9(LL) 3.5 - 5.3 mmol/L 10/25/2024 11:57 PM EDT [facility] Blood, Arterial 10/25/2024 1 1:40 PM EDT 10/25/2024 11:57 PM EDT us Harvey Domínguez III, MD POINT OF CARE TEST ORDERABLES Final Result Performing Organization Address City/[facility]/ZIP Co de Phone Number [facility] [address] [facility]. [address] * (ABNORMAL) POC Sodium (10/25/2024 11:40 PM EDT) POC Sodium 135(L) 136 - 146 mmol/L 10/25/2024 11:57 PM EDT [facility] Blood, Arterial 10/25/2024 1 1:40 PM EDT 10/25/2024 11:57 PM EDT us Harvey Domínguez III, MD POINT OF CARE TEST ORDERABLES Final Result [facility] [address] * (ABNORMAL) POC TCO2 (10/25/2024 11:40 PM EDT) POC TCO2, Arterial 21(L) 23 - 27 mmol/L 10/25/2024 11:57 PM EDT [facility] Blood, Arterial 10/25/2024 1 1:40 PM EDT 10/25/2024 11:57 PM EDT us Harvey Domínguez III, MD POINT OF CARE TEST ORDERABLES Final Result Performing Organization Address City/[facility]/ZIP Co de Phone Number [facility] [address] * POC O2 SAT (10/25/2024 11:40 PM EDT) POC O2 Saturation, Arterial 98 95 - 98 % 10/25/2024 11:57 PM EDT [facility] Blood, Arterial 10/25/2024 1 1:40 PM EDT 10/25/2024 11:57 PM EDT us Harvey Domínguez III, MD POINT OF CARE TEST ORDERABLES Final Result Performing Organization Address City/[facility]/ZIP Co de Phone Number [facility] [address] * (ABNORMAL) POC Base Excess (10/25/2024 11:40 PM EDT) POC Base Excess, Arterial -6(L) -2 - 3 mmol/L 10/25/2024 11:57 PM EDT [facility] Blood, Arterial 10/25/2024 1 1:40 PM EDT 10/25/2024 11:57 PM EDT us Harvey Domínguez III, MD POINT OF CARE TEST ORDERABLES Final Result [facility] [address] [facility]. [address] * (ABNORMAL) POC HCO3 (10/25/2024 11:40 PM EDT) Pathologist [facility] POC HCO3, Arterial 20(L) 22 - 26 mmol/L 10/25/2024 11:57 PM EDT [facility] Blood, Arterial 10/25/2024 1 1:40 PM EDT 10/25/2024 11:57 PM EDT us Harvey Domínguez III, MD POINT OF CARE TEST ORDERABLES Final Result Performing Organization Address [facility] Co de Phone Number [facility] [address] [facility]. [address] * (ABNORMAL) POC PO2 (10/25/2024 11:40 PM EDT) POC pO2, Arterial 107(H) 80 - 100 mm Hg 10/25/2024 11:57 PM EDT [facility] Blood, Arterial 10/25/2024 1 1:40 PM EDT 10/25/2024 11:57 PM EDT us Harvey Domínguez III, MD POINT OF CARE TEST ORDERABLES Final Result Performing Organization Address City/[facility]/ZIP Co de Phone Number [facility] [address] [facility]. [address] * POC PCO2 (10/25/2024 11:40 PM EDT) POC pCO2, Arterial 41 35 - 45 mm Hg 10/25/2024 11:57 PM EDT [facility] Blood, Arterial 10/25/2024 1 1:40 PM EDT 10/25/2024 11:57 PM EDT us Harvey Domínguez III, MD POINT OF CARE TEST ORDERABLES Final Result Performing Organization Address City/[facility]/ZIP Co de Phone Number [facility] [address] * (ABNORMAL) POC pH (10/25/2024 11:40 PM EDT) POC pH, Arterial 7.29(L) 7.35 - 7.45 10/25/2024 11:57 PM EDT [facility] Blood, Arterial 10/25/2024 1 1:40 PM EDT 10/25/2024 11:57 PM EDT us Harvey Domínguez III, MD POINT OF CARE TEST ORDERABLES Final Result Performing Organization Address [facility] Co de Phone Number [facility] [facility] [address] [facility]. [address] * Urine culture (10/25/2024 11:08 PM EDT) Culture Result <1,000 cfu/mL [facility] Culture Result Skin/Urogeni rony Mckayla. No Further Workup. [facility] Newly Placed Berkowitz Urine URINE SPECIMEN / Unknown 10/25/2024 11:08 PM EDT Comment:urine culture Narrative [facility] - 10/28/2024 9:59 AM EDT urine culture urine culture us Harvey Domínguez III, MD MICROBIOLOGY - GENE RAL ORDERABLES Final Result Performing Organization Address City/[facility] Co de Phone Number [facility] [address] * X-ray Portable Chest (10/25/2024 10:19 [...] - 2.2 mmol/L 10/25/2024 10:39 PM EDT [facility] Plasma 10/25/2024 10:1 7 PM EDT 10/25/2024 10:17 PM EDT Ben Blake MD LAB BLOOD ORDERABLES Final Re sult [facility] [address] [facility]. [address] * (ABNORMAL) Ferritin (10/25/2024 10:17 PM EDT) Pathologist [facility] Ferritin 623.2(H) 23.9 - 336.2 ng/mL 10/25/2024 11:02 PM EDT [facility] Serum 10/25/2024 10:1 7 PM EDT 10/25/2024 10:17 PM EDT Leandra Og MD LAB BLOOD ORDERABLES F inal Result Performing Organization Address City/[facility]/ZIP Co de Phone Number [facility] [address] [facility]. [address] * Iron Studies (Iron + TIBC) (10/25/2024 10:17 PM EDT) Iron 128 50 - 212 ug/dL 10/25/2024 10:44 PM EDT [facility] % Iron Saturation SEE COMMENT 15.0 - 55.0 % 10/25/2024 10:44 PM EDT [facility] Comment:Unable to calculate result because contributing result outside reportable range.. TIBC SEE COMMENT 261 - 462 ug/dL 10/25/2024 10:44 PM EDT [facility] Comment:Unable to calculate result because contributing result outside reportable range.. Serum 10/25/2024 10:1 7 PM EDT 10/25/2024 10:17 PM EDT us Leandra Og MD LAB BLOOD ORDERABLES F inal Result [facility] [address] * PTH (10/25/2024 10:17 PM EDT) PTH 36.0 12.0 - 88.0 pg/mL 10/25/2024 11:01 PM EDT [facility] Serum 10/25/2024 10:1 7 PM EDT 10/25/2024 10:17 PM EDT us Leandra Og MD LAB BLOOD ORDERABLES F inal Result [facility] [address] [facility]. [address] * HIV 1+2 Antibody/Antigen with Reflex (10/25/2024 10:17 PM EDT) HIV 1+2 AB/AGN Nonreactive Nonreactive 10/25/2024 11:03 PM EDT [facility] Serum 10/25/2024 10:1 7 PM EDT 10/25/2024 10:16 PM EDT Narrative [facility] - 10/25/2024 11:03 PM EDT \HIVRNR us Leandra Og MD LAB BLOOD ORDERABLES F inal Result [facility] [address] * Hepatitis B Core Antibody (10/25/2024 10:17 PM EDT) Hep B Core Total Ab Nonreactive Nonreactive 10/25/2024 11:07 PM EDT [facility] Comment:Health Department no tified in accordance with reportable infectious disease guidelines. Serum 10/25/2024 10:1 7 PM EDT 10/25/2024 10:17 PM EDT Narrative [facility] - 10/25/2024 11:07 PM EDT A nonreactive final interpretation indicates that anti-HBc antibodies were not detected in the sample; it is possible that the individual is not infected with HBV. Leandra Og MD LAB BLOOD ORDERABLES F inal Result [facility] [address] [facility]. [address] * Hepatitis C Antibody (10/25/2024 10:17 PM EDT) HCV Ab Nonreactive Nonreactive 10/25/2024 11:16 PM EDT [facility] Comment:Health Department no tified in accordance with reportable infectious disease guidelines. Serum 10/25/2024 10:1 7 PM EDT 10/25/2024 10:17 PM EDT Narrative [facility] - 10/25/2024 11:16 PM EDT Antibodies to HCV not detected; does not exclude the possibility of exposure to HCV. Leandra Og MD LAB BLOOD ORDERABLES F inal Result Performing Organization Address [facility] Co de Phone Number [facility] [address] [facility]. [address] * (ABNORMAL) Hepatitis B Surface Antibody, Quantitati (10/25/2024 10:17 PM EDT) HBSAB NUMBER 10.70(H) 0.00 - 9.99 mIU/mL 10/25/2024 11:52 PM EDT [facility] Hep B S Ab Equivocal (A) Nonreactive 10/25/2024 11:52 PM EDT [facility] Serum 10/25/2024 10:1 7 PM EDT 10/25/2024 10:17 PM EDT Leandra Og MD LAB BLOOD ORDERABLES F inal Result Performing Organization Address City/[facility]/ZIP Co de Phone Number [facility] [address] [facility]. [address] * Hepatitis B surface antigen (10/25/2024 10:17 PM EDT) Pathologist [facility] Hep B Surface Ag Nonreactive Nonreactive 10/25/2024 11:12 PM EDT [facility] Comment:Health Department no tified in accordance with reportable infectious disease guidelines. Serum 10/25/2024 10:1 7 PM EDT 10/25/2024 10:17 PM EDT Counts include 234 beds at the [facility] - 10/25/2024 11:12 PM EDT Specimen is considered negative for HBsAg. Leandra Og MD LAB BLOOD ORDERABLES F inal Result Performing Organization Address City/[facility]/ZIP Co de Phone Number [facility] [address] [facility]. [address] * Hepatitis A Antibody Total (10/25/2024 10:17 PM EDT) Pathologist [facility] Anti-HAV Total (IgG + IgM) Nonreactive 10/25/2024 11:13 PM EDT [facility] Serum 10/25/2024 10:1 7 PM EDT 10/25/2024 10:17 PM EDT Counts include 234 beds at the [facility] - 10/25/2024 11:13 PM EDT HAV antibodies not detected Leandra Og MD LAB BLOOD ORDERABLES F inal Result [facility] [address] [facility]. [address] * (ABNORMAL) Hepatic Function Panel (10/25/2024 10:17 PM EDT) Pathologist [facility] Total Bilirubin 9.1(H) 0.0 - 1.5 mg/dL 10/25/2024 10:47 PM EDT [facility] Bilirubin, Direct 4.58(H) 0.00 - 0.40 mg/dL 10/25/2024 10:47 PM EDT [facility] AST 51(H) 13 - 39 U/L 10/25/2024 10:47 PM EDT [facility] ALT 23 7 - 52 U/L 10/25/2024 10:47 PM EDT [facility] Alkaline Phosphatase 144(H) 36 - 125 U/L 10/25/2024 10:47 PM EDT [facility] Total Protein 5.5(L) 6.4 - 8.9 g/dL 10/25/2024 10:47 PM EDT [facility] Albumin 3.5 3.5 - 5.7 g/dL 10/25/2024 10:47 PM EDT [facility] Bilirubin, Indirect 4.52(H) 0.00 - 1.10 mg/dL 10/25/2024 10:47 PM EDT [facility] Plasma 10/25/2024 10:1 7 PM EDT 10/25/2024 10:17 PM EDT us Leandra Og MD LAB BLOOD ORDERABLES F inal Result [facility] [address] * (ABNORMAL) Renal Function Panel w/EGFR (10/25/2024 10:17 PM EDT) Sodium 137 133 - 146 mmol/L 10/25/2024 10:47 PM EDT [facility] Potassium 2.1(LL) 3.5 - 5.3 mmol/L 10/25/2024 10:47 PM EDT [facility] Comment:Critical Result K:2. 1 Called to and read back by: ALICIA CARCAMO RN at: 10/25/2024 22:47:45 by:NANCY Chloride 100 98 - 110 mmol/L 10/25/2024 10:47 PM EDT [facility] CO2 20(L) 21 - 33 mmol/L 10/25/2024 10:47 PM EDT [facility] Anion Gap 17(H) 3 - 16 mmol/L 10/25/2024 10:47 PM EDT [facility] BUN 74(H) 7 - 25 mg/dL 10/25/2024 10:47 PM EDT [facility] Creatinine 3.87(H) 0.60 - 1.30 mg/dL 10/25/2024 10:47 PM EDT [facility] Glucose 114(H) 70 - 100 mg/dL 10/25/2024 10:47 PM EDT [facility] Calcium 9.3 8.6 - 10.3 mg/dL 10/25/2024 10:47 PM EDT [facility] Phosphorus 5.9(H) 2.1 - 4.7 mg/dL 10/25/2024 10:47 PM EDT [facility] Albumin 3.5 3.5 - 5.7 g/dL 10/25/2024 10:47 PM EDT [facility] Osmolality, Calculated 307(H) 278 - 305 mOsm/kg 10/25/2024 10:47 PM EDT [facility] EGFR 19 10/25/2024 10:47 PM EDT [facility] Comment:As of 2021, the [...] MD LAB BLOOD ORDERABLES F inal Result [facility] [address] [place], [place] [address] * (ABNORMAL) APTT, NO ANTICOAGULANT (10/25/2024 10:17 PM EDT) aPTT 41.7(H) 25.5 - 35.0 seconds 10/25/2024 10:36 PM EDT [facility] Plasma 10/25/2024 10:1 7 PM EDT 10/25/2024 10:17 PM EDT us Leandra Og MD LAB BLOOD ORDERABLES F inal Result Performing Organization Address [facility] Co de Phone Number [facility] [address] [facility]. [address] * (ABNORMAL) Protime-INR (10/25/2024 10:17 PM EDT) Protime 21.7(H) 12.1 - 15.1 seconds 10/25/2024 10:35 PM EDT [facility] INR 1.8(H) 0.9 - 1.1 10/25/2024 10:35 PM EDT [facility] Comment: RECOMMENDED THERAPEUTIC RANGES USING INR : Stable oral anticoagulant therapy: 2.0 - 3.0 Mechanical prosthetic heart valve: 2.5 - 3.5 Recurrent acute myocardial infarction: 2.5 - 3.5 Plasma 10/25/2024 10:1 7 PM EDT 10/25/2024 10:17 PM EDT us Leandra Og MD LAB BLOOD ORDERABLES F inal Result Performing Organization Address [facility] de Phone Number [facility] [address] [facility]. [address] * (ABNORMAL) Differential (10/25/2024 10:17 PM EDT) Differential Comments See Note 10/25/2024 10:54 PM EDT [facility] Comment: _Platelets Appear Decreased _Platelet Morphology Normal Scan Result PERFORMED 10/25/2024 10:54 PM EDT [facility] Neutrophils Relative 79.8 40.0 - 80.0 % 10/25/2024 10:54 PM EDT [facility] Lymphocytes Relative 9.6(L) 15.0 - 45.0 % 10/25/2024 10:54 PM EDT [facility] Monocytes Relative 8.9 0.0 - 12.0 % 10/25/2024 10:54 PM EDT [facility] Eosinophils Relative 1.3 0.0 - 8.0 % 10/25/2024 10:54 PM EDT [facility] Basophils Relative 0.4 0.0 - 1.0 % 10/25/2024 10:54 PM EDT [facility] nRBC 0 0 - 0 /100 WBC 10/25/2024 10:54 PM EDT [facility] Neutrophils Absolute 4,948 1,520 - 8,640 /uL 10/25/2024 10:54 PM EDT [facility] Lymphocytes Absolute 595 570 - 4,860 /uL 10/25/2024 10:54 PM EDT [facility] Monocytes Absolute 552 0 - 1,296 /uL 10/25/2024 10:54 PM EDT [facility] Eosinophils Absolute 81 0 - 864 /uL 10/25/2024 10:54 PM EDT [facility] Basophils Absolute 25 0 - 108 /uL 10/25/2024 10:54 PM EDT [facility] PLT Morphology Platelet morphology appears normal 10/25/2024 10:54 PM EDT [facility] Whole Blood 10/25/2024 10:1 7 PM EDT 10/25/2024 10:17 PM EDT us Leandra Og MD LAB BLOOD ORDERABLES F inal Result [facility] [address] [place] [address], [facility] * (ABNORMAL) CBC (10/25/2024 10:17 PM EDT) Pathologist [facility] WBC 6.2 3.8 - 10.8 10E3/uL 10/25/2024 10:54 PM EDT [facility] RBC 2.40(L) 4.20 - 5.80 10E6/uL 10/25/2024 10:54 PM EDT [facility] Hemoglobin 8.3(L) 13.2 - 17.1 g/dL 10/25/2024 10:54 PM EDT [facility] Hematocrit 23.7(L) 38.5 - 50.0 % 10/25/2024 10:54 PM EDT [facility] MCV 98.9 80.0 - 100.0 fL 10/25/2024 10:54 PM EDT [facility] MCH 34.6(H) 27.0 - 33.0 pg 10/25/2024 10:54 PM EDT [facility] MCHC 35.0 32.0 - 36.0 g/dL 10/25/2024 10:54 PM EDT [facility] RDW 17.8(H) 11.0 - 15.0 % 10/25/2024 10:54 PM EDT [facility] Platelets 56(L) 140 - 400 10E3/uL 10/25/2024 10:54 PM EDT [facility] Comment: Specimen checked for clots. None detected. Slide Reviewed for PLT Clumps. None Seen. Platelet Estimate Decreased 10/25/2024 10:54 PM EDT [facility] MPV 8.1 7.5 - 11.5 fL 10/25/2024 10:54 PM EDT [facility] Whole Blood 10/25/2024 10:1 7 PM EDT 10/25/2024 10:17 PM EDT Narrative [facility] - 10/25/2024 10:54 PM EDT Peripheral blood smear was scanned per review criteria approved by the laboratory medical transport specialist. us Leandra Og MD LAB BLOOD ORDERABLES F inal Result [facility] [address] [id number], [facility] * Donor Specific Antibody (DSA) (10/25/2024 10:00 PM EDT) AntiDonor Antibodies The request and specimen(s) for this test have been received and transported to the [facility] at [address] [place] [address]. The [facility] will report results directly to the client. 10/25/2024 10:20 PM EDT [facility] Comment:Testing performed by [facility], [facility], [address] [place] [address]. The [facility] report has been forwarded to the appropriate ordering location. Please refer to this report for patient results. Serum 10/25/2024 10:0 0 PM EDT 10/25/2024 10:20 PM EDT us Leandra Og MD LAB BLOOD ORDERABLES F inal Result [facility] [address] [place] [address], [facility] * (ABNORMAL) Venous Blood Gas, Line/Syringe (10/25/2024 10:00 PM EDT) PH-Line Draw 7.38 7.32 - 7.42 10/25/2024 10:08 PM EDT [facility] PCO2-Line Draw 33(L) 41 - 51 mm Hg 10/25/2024 10:08 PM EDT [facility] PO2-Line Draw 33 25 - 40 mm Hg 10/25/2024 10:08 PM EDT [facility] HCO3-Line Draw 20(L) 24 - 28 mmol/L 10/25/2024 10:08 PM EDT [facility] CO2 Content-Line Draw 21(L) 25 - 29 mmol/L 10/25/2024 10:08 PM EDT [facility] Base Excess-Line Draw -5.0(L) -2.0 - 3.0 mmol/L 10/25/2024 10:08 PM EDT [facility] %HBO2-Line Draw 53.8 40.0 - 70.0 % 10/25/2024 10:08 PM EDT [facility] Carboxyhgb-Ludivina e Draw 1.9 % 10/25/2024 10:08 PM EDT [facility] Comment: CARBOXYHEMOGLOBIN (CO) REFERENCE RANGES: Non-Smokers: <2 % Smokers: <8 % TOXIC: >20 % Methemoglobin- Line Draw 0.2 0.0 - 1.5 % 10/25/2024 10:08 PM EDT [facility] Reduced Hemoglobin-Ludivina e Draw 44.1(H) 0.0 - 5.0 % 10/25/2024 10:08 PM EDT [facility] Venous, Line Draw 10/25/2024 10:00 PM EDT 10/25/2024 10:04 PM EDT Leandra Og MD LAB BLOOD ORDERABLES F inal Result Performing Organization Address [facility] Co de Phone Number [facility] [address] * (ABNORMAL) POC Glucose Monitoring Device (10/25/2024 9:56 PM EDT) Pathologist [facility] POC Glucose Monitoring Device 103(H) 70 - 100 mg/dL 10/25/2024 9:58 PM EDT [facility] Blood 10/25/2024 9:56 PM EDT 10/25/2024 9:57 PM EDT Harvey Domínguez III, MD POINT OF CARE TEST ORDERABLES Final Result Performing Organization Address [facility] de Phone Number [facility] [address] [facility]. [address] * ECG 12 lead (MUSE) (10/25/2024 9:34 PM EDT) 10/25/2024 9:34 PM EDT Narrative MUSE - 10/27/2024 10:08 AM EDT Ventricular Rate: 97 BPM Atrial Rate: 86 BPM QRS Duration: 106 ms QT: 532 ms QTc: 675 ms P Shawnee: 38 degrees R Shawnee: -29 degrees T Shawnee: 32 degrees Diagnosis Line: Critical Test Result: Long QTc , AV Block ^ SINUS RHYTHM WITH PREMATURE VENTRICULAR COMPLEXES ^ PROLONGED QT ^ NONSPECIFIC ST AND T WAVE CHANGES ^ ABNORMAL ECG ^ ^ Confirmed by MD HA, [facility] ([id number]) on 10/27/2024 10:08:26 AM Leandra Og MD ECG ORDERABLES Final Result Performing Organization Address [facility] Co de Phone Number MUSE * Hepatitis C RNA, Quant Reflex to Genotyp (10/25/2024 8:18 PM EDT) International Units Not Detected IU/mL 10/27/2024 11:03 AM EDT [facility] Comment:Test methodology for HCV RNA quantification is an FDA-approved nucleic acid amplification assay. The Lower Limit of Quantitation (LLOQ) is 15 IU/mL. The linear range of the assay is 15-100,000,000 IU/mL. The Limit of Detection (LoD) is 12.0 IU/mL for EDTA plasma. The reference range is Not Detected. IU log10 See Note log 10 IU/mL 10/27/2024 11:03 AM EDT [facility] Comment:HCV RNA not detected . Plasma 10/25/2024 8:18 PM EDT 10/25/2024 10:27 PM EDT us Leandra Og MD LAB BLOOD ORDERABLES F inal Result [facility] [address] [facility] [place] [address], [facility] * Urinalysis w/Rfl to Microscopic (10/25/2024 8:18 PM EDT) Color, UA Yellow Yellow,Straw 10/25/2024 10:38 PM EDT [facility] Clarity, UA Clear Clear 10/25/2024 10:38 PM EDT [facility] Specific Ad[place], UA 1.010 1.005 - 1.035 10/25/2024 10:38 PM EDT [facility] pH, UA 6.0 5.0 - 8.0 10/25/2024 10:38 PM EDT [facility] Protein, UA Negative Negative mg/dL 10/25/2024 10:38 PM EDT [facility] Glucose, UA Negative Negative mg/dL 10/25/2024 10:38 PM EDT [facility] Ketones, UA Negative Negative mg/dL 10/25/2024 10:38 PM EDT [facility] Bilirubin, UA Negative Negative 10/25/2024 10:38 PM EDT [facility] Blood, UA Negative Negative 10/25/2024 10:38 PM EDT [facility] Nitrite, UA Negative Negative 10/25/2024 10:38 PM EDT [facility] Urobilinogen, UA <2.0 0.2 - 1.9 mg/dL 10/25/2024 10:38 PM EDT [facility] Leukocyte Esterase, UA Negative Negative 10/25/2024 10:38 PM EDT [facility] Urine 10/25/2024 8:18 PM EDT 10/25/2024 10:35 PM EDT Counts include 234 beds at the [facility] - 10/25/2024 10:38 PM EDT Microscopic testing is not performed when the dipstick is negative for blood, leukocyte, protein and nitrite. Leandra Og MD URINE ORDERABLES Final Result Performing Organization Address [facility] Co de Phone Number [facility] [address] [facility]. [address] * Toxoplasma gondii antibody, IgG (10/25/2024 8:18 PM EDT) Pathologist [facility] Toxoplasma Gondii IgG <3.0 0.0 - 7.1 IU/mL 10/27/2024 7:55 AM EDT [facility] Comment: Negative <7.2 Equivocal 7.2 - 8.7 Positive >8.7 Serum 10/25/2024 8:18 PM EDT 10/27/2024 8:06 AM EDT Counts include 234 beds at the [facility] - 10/27/2024 8:06 AM EDT PERFORMED AT: [facility] [id number] SERVER SERVICE ASSISTANT: Bassam Khalil, PhD PHONE: [phone] Leandra Og MD LAB BLOOD ORDERABLES F inal Result Performing Organization Address City/[facility] Co de Phone Number [facility] [address] [place] [address]. [address] * Antibody Screen (10/25/2024 7:46 PM EDT) Pathologist [facility] Antibody Screen Negative 10/25/2024 10:41 PM EDT [facility] Blood 10/25/2024 7:46 PM EDT 10/25/2024 9:54 PM EDT Counts include 234 beds at the [facility] - 10/25/2024 10:44 PM EDT Testing performed by [facility] Ben Blake MD BLOOD BANK TEST ORDERABLES Fi nal Result [facility] [address] [facility]. [address] * ABO/Rh (10/25/2024 7:46 PM EDT) ABO Grouping O 10/25/2024 10:23 PM EDT [facility] Rh Type Positive 10/25/2024 10:23 PM EDT [facility] Blood 10/25/2024 7:46 PM EDT 10/25/2024 9:54 PM EDT Ben Blake MD BLOOD BANK TEST ORDERABLES Fi nal Result [facility] [address] [facility]. [address] * (ABNORMAL) TEG-Standard Global Hemostasis (Rapid TEG with Heparin Effect, Contains a Baseline TEG) (10/25/2024 7:46 PM EDT) Citrated Kaolin Reaction Time (TEGHEPARINASE) 8.4 4.6 - 9.1 minutes 10/25/2024 10:49 PM EDT [facility] Citrated Rapid Teg Maximum Amplitude (TEGHEPARINASE) <40.0(L) 52.0 - 70.0 mm 10/25/2024 10:49 PM EDT [facility] Citrated Functional Fibrinogen Maximum Amplitude (TEGHEPARINASE) 6.7(L) 15.0 - 32.0 mm 10/25/2024 10:49 PM EDT [facility] Citrated Kaolin W/Heparinase Reaction Time (TEGHEPARINASE) 8.1 4.3 - 8.3 minutes 10/25/2024 10:49 PM EDT [facility] Citrated Kaolin K-Time (TEGHEPARINASE) 2.5(A) 0.8 - 2.1 minutes 10/25/2024 10:49 PM EDT [facility] Citrated Kaolin Angle (TEGHEPARINASE) 65.7(A) 63.0 - 78.0 degrees 10/25/2024 10:49 PM EDT [facility] Citrated Kaolin Maximum Amplitude (TEGHEPARINASE) <40.0(L) 52.0 - 69.0 mm 10/25/2024 10:49 PM EDT [facility] Citrated Functional Fibrinogen- Fibrinogen Level (TEGHEPARINASE) 159.5(L) 278.0 - 581.0 mg/dL 10/25/2024 10:49 PM EDT [facility] Whole Blood (Citrate) 10/25/2024 7:46 PM EDT 10/25/2024 10:15 PM EDT us Ben Blake MD LAB BLOOD ORDERABLES Final Re sult [facility] [id number] [place] [id number], [facility] documented in this encounter Visit Diagnoses Diagnosis Acute kidney injury superimposed on CKD ([facility])- Primary Prophylactic antibiotic Encounter for [...] min, First dose (after last reorder) on 10/27/24 at 1730, For 2 doses, [...] AM EDT 50 mLs 100 mL/hr New 11/01/2024 10:50 AM EDT 50 mLs 100 [...] Intravenous, Every 3 hours, First dose on Sun10/26/24 at 0800, For 2 doses, In Emergencies, may administer as rapidly as needed to improve clinical status., Select indication for use: Hepatic Resection/Liver Transplantation, at 83.3 mL/hr New Bag 10/26/2024 7:38 AM EDT 250 mLs 83.3 mL/hr albumin human 5% 500 mL, Intravenous, Every 3 hours, First dose (after last reorder) on Sun10/26/24 at 1230, For 1 dose, In Emergencies, may administer as rapidly as needed to improve clinical status., Select indication for use: Hepatic Resection/Liver Transplantation, at 999 mL/hr New Bag 10/26/2024 12:28 PM EDT 500 mLs 999 mL/hr albumin human 5% 250 mL, Intravenous, Every 3 hours, First dose on Sun10/26/24 at 1830, For 4 doses, In Emergencies, [...] in sodium chloride 0.9% 100 mL IVPB ([id number]) 1 g, Intravenous, at 200 mL/hr, Every 6 hours scheduled (4 times per day), First dose on [place] 10/26/24 at 0630, For 2 days, Dosage may need to be adjusted for renal dysfunction. Full dose is 1g IV q6h Use [id number] Adapter - Mix Thoroughly Before Administration New Bag 10/28/2024 1:58 AM EDT 1 g 200 mL/hr Rate/Dose Verify 10/27/2024 7:00 PM EDT 200 mL/ hr New Bag 10/27/2024 6:42 PM EDT 1 g 200 mL/hr angiotensin II (GIAPREZA) 0.005 mg/mL in sodium chloride 0.9 % 500 mL infusion Intravenous, at 0-58.8 mL/hr, Continuous, Starting on [place] 10/26/24 at 1300, Enter on pump as N O DRUG SELECTED Weaning: Once underlying shock sufficiently improved, defined as [id number] r requirement ? 0.2 mcg/kg/min (norepinephrine equivalent) [...] 25 mg 25 mg, Oral, Once, On 10/25/24 at 2100, For 1 dose, Give in [...] Intravenous, at 0-20 mL/hr, Continuous, Starting on [place] 10/26/24 at 0630, If the patient is [...] patient is non-communicative (CPOT 6-8), Starting on Sun10/26/24 at 0628, Provide bolus from bag for [...] 6:48 PM EDT 1 mg HYDROmorphone (DILAUDID) LABEL PASTER 6 mg/30 mL syringe *Standard Conc* Intravenous, Continuous, Starting on Sun10/27/24 at 1730, HIGH ALERT MEDICATION New Syringe/Cartridge 10/28/2024 3:59 AM EDT New Syringe/Cartridge 10/27/2024 7:09 PM EDT HYDROmorphone (DILAUDID) LABEL PASTER 6 mg/30 mL syringe *Standard Conc* Intravenous, [...] in sodium chloride 0.9 % 100 mL [id number] IVPB 50 mg, Intravenous, at 100 mL/hr, Every 24 hours, First dose on Sun10/27/24 at 1400, PROTECT FROM LIGHT FLUSH LINE w/NSS PRIOR TO ADMINISTRATION Use [id number] Adapter - Mix Thoroughly Before Administration Rate/Dose [...] 30 mg 30 mg, Oral, Once, On Sun11/01/24 at 0900, For 1 dose, POD #6 [...] paralyzed: Do not titrate - follow policy [id number]. Start infusion if unable to maintain goal [...] Vilchis RN)1255 (Given - Provider: Paulette Flannery RN)205 (Given - Provider: Yvonne Gale, ЮЛИЯ) 0620 (Given - Provider: Yvonne Gale, ЮЛИЯ)101 (Given - Provider: Paulette Flannery RN)2118 (Given - Provider: Yvonne Gale RN) 0543 (Given - Provider: Yvonne Gale RN)1219 (Given - Provider: Paulette Flannery RN) albumin human 25% (COMPLETED) 50 mL, Intravenous, Every 30 min, First dose on Sun10/31/24 at 2100, For 2 doses, In Emergencies, may administer as rapidly as needed to improve clinical status., Select indication for use: Hepatic Resection/Liver Transplantation, at 100 mL/hr 2054 (New Bag - Provider: Yvonne Gale RN)214 [...] Flannery RN)1155 (New Bag - Provider: Paulette Flannery, ЮЛИЯ) [...] Provider: Paulette Flannery RN - Reason: Patient/family refused)2121 (Not Given - Provider: Yvonne Gale RN [...] Gale RN) 1021 (Given - Provider: Paulette Flannery, RN)1344 (Given - Provider: Paulette Flannery RN)212 (Given - Provider: Yvonne Gale RN) 1149 (Given - Provider: Paulette Flannery RN)1531 (Given - Provider: Meka Montalvo RN) heparin (porcine) injection 5,000 Units 5,000 Units, Subcutaneous, Every 8 hours scheduled (3 times per day), First dose on Sun10/26/24 at 0600 0614 (Given - Provider: Vandana Vilchis RN)1255 (Given - Provider: Paulette Flannery RN)2056 (Given - Provider: Yvonne Gale RN) 0614 (Given - Provider: Yvonne Gale RN)1345 (Given - Provider: Paulette Flannery RN)211 (Given - Provider: Yvonne Gale RN) 0543 [...] 0543 (Given - Provider: Yvonne Gale, ЮЛИЯ) lidocaine (LIDODERM) 5 % 2 patch 2 [...] On Sun11/01/24 at 0830, For 1 dose 1057 (New Bag - Provider: Paulette Flannery RN) melatonin tablet Tab 6 mg 6 mg, Oral, At Bedtime (2099), First dose on Sun10/28/24 at 2100, FOR [...] Flannery RN)1714 (Given - Provider: Paulette Flannery RN)211 (Given [...] MEDICATION 0852 (Given - Provider: Paulette Flannery RN)205 (Given - Provider: Yvonne Gale RN) 1018 (Given - Provider: Paulette Flannery RN)211 (Given [...] CRUSH or CHEW; TABLET(S) MAY BE SPLIT 1019 (Given - Provider: Paulette Flannery RN) potassium [...] 1400 0852 (Given - Provider: Paulette Flannery RN)2055 (Given - Provider: Yvonne Gale RN) 101 (Given - Provider: Paulette Flannery RN)2119 (Given - Provider: Yvonne Gale RN) 114 (Given - Provider: Paulette Flannery RN) sod [...] = 13 mEq; Potassium = 1.1 mEq 1900 (Given - Provider: Paulette Flannery RN)2118 (Given - Provider: Yvonne Gale RN) sodium bicarbonate tablet 1,300 mg 1,300 mg, Oral, 3 times daily, First dose on Sun10/31/24 at 1300 1254 (Given - Provider: Paulette Flannery RN)2054 (Given - Provider: Yvonne Gale RN) 1019 [...] Yvonne Gale, ЮЛИЯ)0615 (Given - Provider: Yvonne Gale RN)1153 (Given [...] to med 20 mEq, Oral, Once, On 11/01/24 at [...] to med 250 mg, Oral, Once, On Sun11/01/24 at 2300, For 1 dose, Phosphorus Level [...] documented as of this encounter Care Teams Flare Worker Relationship Specialty Start Date End Date Enedina Mcguire NP [address] [place] [id number] PCP - General Internal Medicine 10/05/24 Alicia Pantoja, ЮЛИЯ Txp Post Coordinator Transplant Hepatology 10/28/24 documented as of this encounter
--- OUTSIDE RECORDS SUMMARY | 2024-10-25 22:30 | XMS_ITS | Encounter Summary ---
Author Organization [facility] Address [address] [place] [address] Care Team Providers Care Online Services Manager Name Role Phone Enedina Mcguire NP Primary Care Provider [phone] Source Comments This information has been disclosed [...] release of HIV test results or diagnoses. [id number] Reason for Visit * Auth/Cert (Routine) Specialty Diagnoses / Procedures Referred By Shane hernadez Referred To Contact Surgical Intensive Care Diagnoses Liver transplant recipient (CMS-HCC) cirrhosis and CKD Procedures LIVER-KIDNEY TRANSPLANT [facility] S[facility] [address] [place] [address] Phone: tel: Referral ID Status Reason Start Date Expiration Date Visits Re quested Visits Authorized [id number] 1 1 Encounter Details Date Type Department Care Team (Late st Contact Info) Description 10/25/2024 10:30 PM EDT - 10/26/2024 6:12 AM EDT Surgery [facility] [address] [place] [address] Semaj Mcnair III, MD [address] [place] [address] LIVER TRANSPLANT Surgery Details Date/Time [...] the past 12 months has th e [employer], gas, oil, or water [employer] threatened to shut off services in [...] Plata MD - 11/02/2024 2:04 PM EDT [facility] Liver Transplant Surgical Service Inpatient Discharge Summary Patient: Blair Gilbert : 1985 CSN: [id number] Date of Admission: 10/25/2024 Date of Discharge: [...] Case IDs Date Procedure Surgeon Location Status [id number] 10/25/24 LIVER TRANSPLANT Semaj Mcnair III, MD OR Comp [id number] 10/27/24 Donor Kidney Transplant , Back Bench [...] EXAM: US ABDOMEN LIMITED EXAM: US DUPLEX [id number] COMPLETE INDICATION: Post-op liver transplant COMPARISON: None [...] visualized secondary to poor acoustic windows. The robinson right kidney measures 11.6 cm in length. [...] 30 tablet Refills: 0 naloxone 4 mg/actuation [place] Commonly known as: NARCAN Apply 1 spray [...] Your Medications These medications were sent to [facility] NAA Baum - [address] [facility] Mya [address]Mal Deya Roque [address] mycophenolate 250 mg capsule tacrolimus 1 MG capsule These medications were sent to [facility] [address] [place] [address] Hours: Sunday - Sunday: 8:00AM - 6:00PM [...] Case IDs Date Procedure Surgeon Location Status [id number] 10/25/24 LIVER TRANSPLANT Semaj Mcnair III, MD OR Comp [id number] 10/27/24 Donor Kidney Transplant , Back Bench [...] discharge. NEURO/PAIN - Patient placed on Dilaudid WIRE SAW OPERATOR once extubated, then transitioned to multi-modal pain [...] stentis scheduled for removal on 11/25 [facility] - PT/OT evaluated patient and recommended Home PT/OT, outpatient PT/OT only available. ENDO - A1C is 5.0. Pt was not on diabetic regimen prior to arrival. Patient developed steroid-induced hyperglycemia 2/2 steroid regimen. Discharged home on the following regimen: HDSSI. Patient met w/ scaffolder prior to discharge. HEME - Post-operatively, monitored [...] Patient and family received post-transplant education from store coordinator as well as medication teaching from [...] Department Center 11/04/2024 8:40 AM [facility] 11/04/2024 10:10 AM LTRA HEPATORENAL HOX [facility] 11/25/2024 9:00 AM NAA Merida [facility] 12/02/2024 2:00 PM Bossman Huffman MD [facility] 02/25/2025 10:50 AM Bruno Gonzalez MD [facility]OX Kenyetta Hartman, MS-4 [facility] SHAY PLATA MD 11/02/2024 12:50 [...] up appointments. Diet: Regular diet Drain/Dressing/Wound Care: Calhoun will be removed in clinic approximately 3-4 [...] kept under 2 gm/day. Please discuss withyour reporting coordinator if you have any question about appropriate dose to take. Other Instructions: Call post-liver transplant clinic with questions [phone] or call [facility] at [phone] and ask for the liver store coordinator health information tech if you experience any of the following: [...] Department Center 11/04/2024 8:40 AM [facility] 11/04/2024 10:10 AM LTRA HEPATORENAL HOX [facility]OX 11/25/2024 9:00 AM NAA Merida [facility] 12/02/2024 2:00 PM Bossman Huffman MD [facility]EL [facility]AB MAB 02/25/2025 10:50 AM Bruno Gonzlaez MD [facility] HOX documented in this [...] AM EDT 10/30/2024 naloxone (NARCAN) 4 mg/actuation [place] Apply 1 spray in one nostril if [...] tacrolimus and mycophenolate which were dispensed through [facility] per insurance requirements. [...] fair Expected caregiver involvement?: is primary med editorial manager Need for additional education in clinic?: routine reinforcement only Future medications to be obtained from, if known (select one): Tac/MMF to be filled from [facility] Financial concerns (if any): no Discharge Medication List as of 11/02/2024 5:17 PM START taking these medications Details acetaminophen (TYLENOL) 325 MG tablet Take 3 tablets (975 mg total) by mouth every 8 hours., Starting 10/27/2024, Normal, Disp-200 tablet, R-0 alcohol swabs PadM Use as instructed., Normal, Disp-200 each, R-1 blood sugar diagnostic (GLUCOSE BLOOD) [facility] Use to test blood sugar up to 4 times a day., Normal, Disp-100 strip, R-11 blood-glucose meter (TRUE METRIX GLUCOSE METER) [facility] Use to test blood sugar up to [...] Disp-15 mL, R-2 lancets (ACCU-CHEK SOFTCLIX LANCETS) [facility] Use to test blood sugar up to [...] Disp-30 tablet, R-0 naloxone (NARCAN) 4 mg/actuation [place] Apply 1 spray in one nostril if [...] for Stopping: Eduardo Gamino, Pharm.D., [facility] Solid [facility] Transplant Clinical Specialist Contact via [employer] Secure Chat * Froylan Hendrickson MD - 11/01/2024 8:04 AM EDT Liver Transplant Surgery Progress Note Name: Blair Gilbert CSN: [id number] Date: 11/01/2024 8:06 AM OR Date: 10/25/2024 [...] at 10/31/2024 4:38 PM EDT US Duplex Hpg-Gxw-Aocrpgy Comp Result Date: 10/31/2024 IMPRESSION: RIGHT UPPER [...] 10/25/2024 - 10/27/2024. Plan: Liver transplant recipient ([facility]) [Z94.4] Neuro: - Multimodal pain control: [...] 3:24 PM EDT TXP - Follow Up [facility] Medical Nutrition Therapy Transplant Brief [...] Boost VHC- very high calorie protein supplement ([facility] only) Pertinent Information: Pt seen for [...] Based on DBW of 93.1 kg Kcals/day: 4882-3745 (25-30 kcals/kg) Protein g/day: 140-190 (1.5-2.0 g/kg) [...] Dietitian - Solid Organ Transplant Contact via [employer] Chat * Keon Dobson - 10/31/2024 2:35 PM EDT [facility] Spiritual Care Volunteer Visit PATIENT NAME: Blair Gilbert ROOM:8025/U8025 Pentecostal Affiliation:Rastafarian Blair Gilbert was visited by a volunteer today. No needs requiring a visit from a staff criminal records technician were expressed at that time. Care Provided: Communion, Prayer/ blessing Please page our service at [phone] as needs arise for patient and/or family. Fr Dean Dobson Rastafarian criminal records technician Spiritual Care Dept * Brittany Horne PT [...] issued by OT: Long-handled sponge, Sock aid, Analytical Chemist, Other (comment) Equipment issued by OT comment: leg tile picker Assessment Assessment: Decreased ADL status, Decreased IADLs, [...] IADL task (Goal met and continued 10/31) Jail Goal : Pt will complete bathing assessment [...] Hypertension Other hyperlipidemia 07/26/2024 Renal cell carcinoma ([facility]) Thrombocytopenia ([facility]) Thyroid disease Past Surgical History Past [...] Patient Active Problem List Diagnosis Decompensated cirrhosis ([facility]) Acute kidney injury superimposed on CKD ([facility]) Alcohol use disorder Metabolic encephalopathy Hypertension Other hyperlipidemia Thrombocytopenia ([facility]) Renal mass, left Abdominal pain Hypokalemia CKD (chronic kidney disease) stage 4, GFR 15-29 ml/min ([facility]) Metabolic acidosis with normal anion gap and bicarbonate losses GERD (gastroesophageal reflux disease) Hypothyroidism Itching Anemia BRBPR (bright red blood per rectum) SBP (spontaneous bacterial peritonitis) ([facility]) C Diff Diarrhea C. difficile diarrhea Neck [...] 0659 10/31/24 07 - 11/01/24 0659 Shift 9573-2746 3279-3927 6900-4642 24 Hour Total 6339-0929 7799-5509 5898-2736 24 Hour Total INTAKE P.O. 240 240 P.O. 240 240 Shift Total(mL/kg) 240(1.9) 240(1.9) OUTPUT Urine(mL/kg/hr) 1850(1.8) 600(0.6) 600(0.6) 3050(1) 350 350 Urine 800 999 431 8337 350 350 Urine Occurrence 2 x 2 [...] with further concerns Lavell Kramer MD 10/31/[phone] * Priti Geiger CNP - 10/31/2024 10:06 AM EDT Liver Transplant Surgery Progress Note Name: Blair Gilbert CSN: [id number] Date: 10/31/2024 10:06 AM OR Date: 10/25/2024 [...] 10/28/24 1109 LACTATE 0.3* Imaging US Duplex Wqd-Nzj-Mdyhwfu Comp Result Date: 10/28/2024 IMPRESSION: ABDOMINAL ULTRASOUND [...] 10/25/2024 - 10/27/2024. Plan: Liver transplant recipient ([facility]) [Z94.4] Neuro: - Multimodal pain control: [...] Transplant Nephrology Progress Note Patient: Blair Gilbert [id number] 8025/U8025 Date of Admit: 10/25/2024. 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 Lauren Santos, DNP, HOUSEKEEPING ASSISTANT, MAKEUP EDITOR- Transplant Nephrology [phone] Preferred contact: secure chat The HPI, ROS, [...] 10/30/24 0659 10/30/24699 - 10/31/24 0659 Shift 0897-7274 3960-5331 2530-8000 24 Hour Total 1216-6341 7698-8184 3150-6640 24 Hour Total INTAKE P.O. 240 240 480 P.O. 240 240 480 IV Piggyback 87.2 87.2 Volume (mL) (micafungin (MYCAMINE) 50 mg in sodium chloride 0.9 % 100 mL Bsqk5Okm IVPB) 87.2 87.2 Shift Total(mL/kg) 240(2) 327.2(2.7) 567.2(4.4) OUTPUT Urine(mL/kg/hr) 600(0.6) 1175(1.2) 450(0.4) 2225(0.7) 550 550 Output (mL) (IUC (Berkowitz) Triple-lumen (3-Way) 18 Fr.) 600 0940 075 7520 550 550 Drains 175 245 100 520 [...] month of prophylaxis Lavell Kramer MD 10/30/[phone] * Priti Geiger CNP - 10/30/2024 10:36 AM EDT Liver Transplant Surgery Progress Note Name: Blair Gilbert CSN: [id number] Date: 10/30/2024 10:37 AM OR Date: 10/25/2024 [...] 1109 LACTATE 0.5 0.3* Imaging US Duplex Ulq-Fgs-Tronwwq Comp Result Date: 10/28/2024 IMPRESSION: ABDOMINAL ULTRASOUND [...] 10/25/2024 - 10/27/2024. Plan: Liver transplant recipient ([facility]) [Z94.4] Neuro: - Multimodal pain control: [...] Transplant Nephrology Progress Note Patient: Blair Gilbert [id number] 8025/U8025 Date of Admit: 10/25/2024. 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 Lauren Santos, DNP, HOUSEKEEPING ASSISTANT, MAKEUP EDITOR- Transplant Nephrology [phone] Preferred contact: secure chat The HPI, ROS, [...] EDT Pt seen, examined, and discussed with SPECIAL PROCEDURES TECH on 10/30/2024. reviewed the chart including the labs and imaging studies. My additional comments below. 39 y.o. 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 S/p SLK 10/25-10/26 Good uop Mild MA, will monitor for now for needs of po bicarb Aaron Gonzalez MD, MEd, FASN * Ben Weiss, RD - 10/29/2024 3:36 PM EDT TXP - Follow Up [facility] Medical Nutrition Therapy Follow-Up Diet [...] I/O: +23.3L net volume. 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 Admit Weight: 270 lb (122.5 [...] Based on DBW of 93.1 kg Kcals/day: 6289-5168 (25-30 kcals/kg) Protein g/day: 140-190 (1.5-2.0 g/kg) [...] transplant recipient (CMS-HCC) [Z94.4] Date: 10/29/2024 Room: [place] [address]/[place] [address] Reviewed Pertinent hospital course: Yes Hospital Course [...] with functional mobility at: 10 or less Director Of Optimization Goal : Pt will ambulate 250' mod [...] hyperlipidemia 07/26/2024 Renal cell carcinoma (CMS-HCC) Thrombocytopenia ([facility]) Thyroid disease Past Surgical History Past [...] Patient Active Problem List Diagnosis Decompensated cirrhosis ([facility]) Acute kidney injury superimposed on CKD ([facility]) Alcohol use disorder Metabolic encephalopathy Hypertension [...] III, MD Admission Diagnosis: Liver transplant recipient ([facility]) [Z94.4] Date: 10/29/2024 Room: [place] [address]/[place] [address] Reviewed Pertinent hospital course: Yes Hospital Course [...] Intervention(s): Ambulation/increased activity;Repositioned Therapist reported pain to: radar tester Oxygen Supplemental Oxygen Supplemental Oxygen: None (Room [...] distance ambulation in prep for IADL task Director Of Optimization Goal : Pt will complete bathing assessment [...] Patient Active Problem List Diagnosis Decompensated cirrhosis ([facility]) Acute kidney injury superimposed on CKD ([facility]) Alcohol use disorder Metabolic encephalopathy Hypertension Other hyperlipidemia Thrombocytopenia ([facility]) Renal mass, left Abdominal pain Hypokalemia CKD (chronic kidney disease) stage 4, GFR 15-29 ml/min ([facility]) Metabolic acidosis with normal anion gap and bicarbonate losses GERD (gastroesophageal reflux disease) Hypothyroidism Itching Anemia BRBPR (bright red blood per rectum) SBP (spontaneous bacterial peritonitis) ([facility]) C Diff Diarrhea C. difficile diarrhea Neck pain with history of cervical spinal surgery * Caron Santos CNP - 10/29/2024 10:30 AM EDT Images from the original note were not included. Transplant Nephrology Progress Note Patient: Blair Gilbert [id number] SICU-28/USIC-28 Date of Admit: 10/25/2024. 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 Lauren Santos, SAMSON, HOUSEKEEPING ASSISTANT, MAKEUP EDITOR- Transplant Nephrology [phone] Preferred contact: secure chat The HPI, ROS, [...] Surgery Progress Note Name: Blair Gilbert CSN: [id number] Date: 10/29/2024 10:08 AM OR Date: 10/25/2024 [...] LACTATE 0.4* 0.5 0.3* Imaging US Duplex Wzj-Tja-Hiapvus Comp Result Date: 10/28/2024 IMPRESSION: ABDOMINAL ULTRASOUND [...] at 10/27/2024 10:38 AM EDT US Duplex Zrm-Xpj-Nkptfbf Comp Result Date: 10/27/2024 IMPRESSION: RIGHT UPPER [...] 10/25/2024 - 10/27/2024. Plan: Liver transplant recipient ([facility]) [Z94.4] Neuro: - Multimodal pain control: [...] Date 10/28/24699 - 10/29/2465810/29/24699 - 10/30/24658 Shift 7457-8994 6305-3077 7703-8545 24 Hour Total 9075-5729 0371-0896 3327-5373 24 Hour Total INTAKE P.O. 240 0 [...] IV infusion) 253.9 374.7 775.6 1404.2 Blood 3041 725 5717 Albumin 750 750 Volume (Transfuse RBC Transfusion Rate: Per dept routine) 310 310 Volume (Transfuse RBC Transfusion Rate: Per dept routine) 271 271 IV Piggyback 918.4 030 38 4263.4 Volume (mL) (micafungin (MYCAMINE) 50 mg in sodium chloride 0.9 % 100 mL Nqky5Vvj IVPB) 99.9 99.9 Volume (mL) (albumin human [...] month of prophylaxis Lavell Kramer MD 10/29/[phone] * John Moreno MD - 10/29/2024 6:47 AM EDT SURGICAL ICU PROGRESS NOTE 10/29/2024 6:47 AM Name: Blair Gilbert [facility]: [id number] HPI: Blair Gilbert is a 39 y.o. [...] to 4 times a day. DEXCOM G7 SHOP MANAGER Misc Use reader as directed. DEXCOM [...] and at bedtime. lancets (ACCU-CHEK SOFTCLIX LANCETS) [facility] Use to test blood sugar up to 4 times a day. methocarbamoL (ROBAXIN) 500 MG tablet Take 1 tablet (500 mg total) by mouth 3 times a day. naloxone (NARCAN) 4 mg/actuation [place] Apply 1 spray in one nostril if [...] 37 37 35 PO2ART 245* 182* 92 ROL9TWK 22 21* 21* BEART -4.2* -4.8* -4.6* [...] at baseline or with provocation, shows no ekdqi-gu-mrbl atrial level shunt. - Pulmonary arteries: Systolic [...] Home pantoprazole 40mg daily, continue Last BM: ADMINISTRATOR OF HOME HEALTH - suppository today Bowel regimen: Miralax today, [...] results for input(s): TEGANGLE , TEGKTIME , APSERWRO93 , TEGMAXAMPL , TEGRTIME , CBMZ in [...] in sodium chloride 0.9 % 100 mL Iqmx5Tmz IVPB 50 mg Every 24 hours 10/27/2024 -- Admin Instructions: PROTECT FROM LIGHT FLUSH LINE w/NSS PRIOR TO ADMINISTRATION Use Jjkw7Sqj Adapter - Mix Thoroughly Before Administration Route: [...] instability DC today Arterial Line? R radial [place]- DC today Urinary Catheter? Berkowitz - Reason: [...] BID Continuous Infusions: HYDROmorphone 6 mg/30 mL WIRE SAW OPERATOR norepinephrine 4 mcg/min (10/27/248) sodium chloride 0.45% [...] 0659 10/28/24 07 - 10/29/24 0659 Shift 4040-2944 6018-8135 1991-5292 24 Hour Total 1098-7407 0434-1514 0978-6946 24 Hour Total INTAKE P.O. 0 120 [...] in sodium chloride 0.9 % 100 mL Ifzg6Woe IVPB) 100 100 Volume (mL) (albumin human 5%) 126 126 Volume (mL) (potassium chloride (KCl)/Sterile water 50 mL 20 mEq/50 mL IVPB 20 mEq) 100 100 Volume (mL) (AMPicillin 1 g in sodium chloride 0.9% 100 mL IVPB (Fptk1Quc)) 100.1 57 42.9 200 Volume (mL) (mycophenolate (CELLCEPT) 500 mg in dextrose 5% in water (D5W) 50 mL IVPB) 50 5.3 55.3 Shift Total(mL/kg) 2079.3(17) 1161(9.5) 787.3(6.4) 4027.6(32.9) OUTPUT Urine(mL/kg/hr) 2195(2.2) 1000(1) 900(0.9) 4095(1.4) 490 490 Urine 360 360 Output (mL) (IUC (Berkowitz) Triple-lumen (3-Way) 18 Fr.) 1835 1072 535 8054 490 490 Emesis/NG output 50 50 Drainage [...] month of prophylaxis Lavell Kramer MD 10/28/[phone] * Caron Santos CNP - 10/28/2024 9:00 AM EDT Images from the original note were not included. Transplant Nephrology Progress Note Patient: Blair Gilbert [id number] SICU-28/USIC- Date of Admit: 10/25/2024. 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 Lauren Santos, DNP, HOUSEKEEPING ASSISTANT, MAKEUP EDITOR- Transplant Nephrology [phone] Preferred contact: secure chat The HPI, ROS, [...] EDT Pt seen, examined, and discussed with SPECIAL PROCEDURES TECH on 10/28/2024. reviewed the chart including the labs and imaging studies. My additional comments below. 39 y.o. 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 S/p SLK 10/25-10/26 Has great UOP 4.2L Aaron Gonzalez MD, MEd, FASN * Shay Plata MD - 10/28/2024 7:41 AM EDT Liver Transplant Surgery Progress Note Name: Blair Gilbert CSN: [id number] Date: 10/28/2024 11:05 AM OR Date: 10/25/2024 - 10/27/2024 Subjective: 1 Day Post-Op Received one unit pRBCs overnight On low dose levo this morning Increasing tachycardia Reports worsening pain, on WIRE SAW OPERATOR Tolerated sips of clears No nausea/vomiting, no flatus/BMs Objective: BP 114/55 Pulse 112 Temp 98.6 ??F (37 ??C) Resp 15 Ht 6' 4 (1.93 m) Wt (!) 270 lb (122.5 kg) SpO2 92% BMI 32.87 kg/m?? Physical Exam: [...] Oral BID Continuous: HYDROmorphone 6 mg/30 mL WIRE SAW OPERATOR norepinephrine Stopped (10/28/24 0637) sodium chloride 0.9 [...] at 10/27/2024 10:38 AM EDT US Duplex Jyb-Bve-Ajlpvnk Comp Result Date: 10/27/2024 IMPRESSION: RIGHT UPPER [...] 10/25/2024 - 10/27/2024. Plan: Liver transplant recipient ([facility]) [Z94.4] Neuro: - Multimodal pain control: dilaudid WIRE SAW OPERATOR, tylenol, robaxin. PRN dilaudid for breakthrough CV: [...] SCDs DISPO: SICU SHAY PLATA MD, MS4 Count includes the [facility] Surgery 11:05 AM 10/28/2024 Cosigned by [...] 10/28/2024 6:17 AM Name: Blair Gilbert CSN: [id number] HPI: Blair Gilbert is a 39 y.o. [...] to 4 times a day. DEXCOM G7 SHOP MANAGER Misc Use reader as directed. DEXCOM [...] times a day. naloxone (NARCAN) 4 mg/actuation [place] Apply 1 spray in one nostril if [...] Oral BID Continuous: HYDROmorphone 6 mg/30 mL WIRE SAW OPERATOR insulin regular in 0.9 % sodium chloride [...] 37 37 35 PO2ART 245* 182* 92 GPC7ZOF 22 21* 21* BEART -4.2* -4.8* -4.6* [...] at baseline or with provocation, shows no uyeyj-aw-tygl atrial level shunt. - Pulmonary arteries: Systolic [...] while intubated,convert to PO today Last BM: ADMINISTRATOR OF HOME HEALTH Bowel regimen: Miralax today, hold senna til [...] ml IV Fluids: HYDROmorphone 6 mg/30 mL WIRE SAW OPERATOR insulin regular in 0.9 % sodium chloride, [...] no concerns - 3 day berkowitz - nd 10/30 - Makes urine at baseline - [...] results for input(s): TEGANGLE , TEGKTIME , AIBEZGHS31 , TEGMAXAMPL , TEGRTIME , CBMZ in [...] in sodium chloride 0.9% 100 mL IVPB (Avqq2Dvy) (Completed) 1 g Every 6 hours scheduled 10/26/2024 10/28/2024 Admin Instructions: Dosage may need to be adjusted for renal dysfunction. Full dose is 1g IV q6h Use Kkgy1Fvs Adapter - Mix Thoroughly Before Administration Notes to Pharmacy: On service order expediter estimated creatinine clearance is 35.9 mL/min (A) [...] in sodium chloride 0.9 % 100 mL Cjxa0Yum IVPB 50 mg Every 24 hours 10/27/2024 -- Admin Instructions: PROTECT FROM LIGHT FLUSH LINE w/NSS PRIOR TO ADMINISTRATION Use Aejw3Yro Adapter - Mix Thoroughly Before Administration Route: [...] R IJ Mac Arterial Line? R radial [place] Urinary Catheter? Berkowitz - Reason: Adequate I/O [...] time spent on procedures: 34 minutes Lino aWldrop MD 10/28/2024 7:34 PM [1] Allergies Allergen [...] the Caprini Risk Score of 10 and [facility] transplant protocol, I recommend discharging on [...] the patient as needed. Hillary Fernandes PharmD, [facility] Solid Organ Transplant Clinical Specialist Contact via [employer] Secure Chat Preferred O. [phone] * Chinedu Almeida RRT - 10/27/2024 1:10 [...] PCO2 37 10/27/2024 PO2ART 245 (H) 10/27/2024 LCT0KJU 22 10/27/2024 BEART -4.2 (L) 10/27/2024 MBD1DTB 96.5 10/27/2024 M3SWIYRQ 100 10/27/2024 Based on this SBT assessment [...] Surgery Progress Note Name: Blair Gilbert CSN: [id number] Date: 10/27/2024 11:40 AM OR Date: 10/25/2024 - 10/27/2024 Subjective: * Day of Surgery * Remains intubated in SICU Sedated but appropriately nods to questions No acute distress Objective: BP 100/48 Pulse 89 Temp 99 ??F (37.2 ??C) ([place]) Resp 9 Ht 6' 4 (1.93 m) [...] at 10/27/2024 10:38 AM EDT US Duplex Acd-Rrn-Qimnoww Comp Result Date: 10/27/2024 IMPRESSION: RIGHT UPPER [...] 10/27/2024. Problem List[1] Plan: Liver transplant recipient ([facility]) [Z94.4] Neuro: - Propofol/fentanyl CV: - [...] SQH, SCDs DISPO: SICU KENYETTA HARTMAN, MS4 Count includes the [facility] Surgery 11:40 AM 10/27/2024 [1] Patient Active Problem List Diagnosis Decompensated cirrhosis ([facility]) Acute kidney injury superimposed on CKD ([facility]) Alcohol use disorder Metabolic encephalopathy Hypertension Other hyperlipidemia Thrombocytopenia ([facility]) Renal mass, left Abdominal pain Hypokalemia CKD (chronic kidney disease) stage 4, GFR 15-29 ml/min ([facility]) Metabolic acidosis with normal anion gap and bicarbonate losses GERD (gastroesophageal reflux disease) Hypothyroidism Itching Anemia BRBPR (bright red blood per rectum) SBP (spontaneous bacterial peritonitis) ([facility]) C Diff Diarrhea C. difficile diarrhea Neck pain with history of cervical spinal surgery Cosigned by Semaj Mcnair III, MD at 10/30/2024 10:46 AM EDT Associated attestation - Semaj Mncair III, MD - 10/30/2024 10:46 AM EDT [...] 10/27/2024 7:16 AM Name: Blair Gilbert CSN: [id number] HPI: Blair Gilbert is a 39 y.o. [...] times a day. naloxone (NARCAN) 4 mg/actuation [place] Apply 1 spray in one nostril if [...] 47* 36 37 PO2ART 127* 91 137* IIK6OSS 21* 22 20* BEART -5.4* -3.9* -6.4* [...] at baseline or with provocation, shows no mlxug-dy-kzbl atrial level shunt. - Pulmonary arteries: Systolic [...] IV pantoprazole while intubated, NPO Last BM: ADMINISTRATOR OF HOME HEALTH Bowel regimen: Senna/Miralax when able Nausea: Zofran [...] 10/27/2024 0715 Gross per 24 hour Intake 70832.82 ml Output 7060 ml Net 6224.82 ml [...] results for input(s): TEGANGLE , TEGKTIME , KMQOEVVT57 , TEGMAXAMPL , TEGRTIME , CBMZ in [...] in sodium chloride 0.9% 100 mL IVPB (Lnqa2Ocq) 1 g Every 6 hours scheduled Admin Instructions: Dosage may need to be adjusted for renal dysfunction. Full dose is 1g IV q6h Use Jhyk5Hbu Adapter - Mix Thoroughly Before Administration Notes to Pharmacy: On service order expediter estimated creatinine clearance is 35.9 mL/min (A) (based on SCr of 3.87 mg/dL (H)). Route: Intravenous Linked Group 1: Placed in And Linked Group cefTRIAXone (ROCEPHIN) 2 g in sodium chloride 0.9 % 100 mL Kmpq3Ixr Continuous - One Step Medications Only 10/27/2024 [...] Arterial Line? R radial Dalia Urinary Catheter? 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 naloxone (NARCAN) 4 mg/actuation [place] Apply 1 spray in one nostril if [...] Risk (07/09/2024) Received from [facility] Overall Financial Resource Strain (CARDIA) Difficulty [...] No Physical Activity: Unknown (07/14/2024) Received from [facility] Exercise Vital Sign Days of Exercise per Week: Patient unable to answer Minutes of Exercise per Session: Not on file Stress: Patient Unable To Answer (07/14/2024) Received from [facility] [place] [facility] [employer] - Occupational Stress Questionnaire Feeling of Stress : Patient unable to answer Social Connections: Patient Unable To Answer (07/14/2024) Received from [facility] Social Connection and Isolation Panel [NHANES] Frequency of Communication with Friends and Family: Patient unable to answer Frequency of Social Gatherings with Friends and Family: Patient unable to answer Attends Pentecostal Services: Patient unable to answer Active Member [...] -- 5.4 ALBUMIN 3.2* 3.1* Invalid input(s): [facility] Other labs: Imaging Studies No [...] admitted to SICU post-op. LEANDRA OG MD Count includes the [facility] Surgery Liver Transplant Pager: [phone] 8:24 PM 10/25/2024 Cosigned by Semaj [...] Name: Blair Gilbert Date: 1985 Billing #: [id number] Date of Procedure: 10/25/2024 Diagnosis: End Stage Renal Disease Procedure: 1. Donor Kidney Transplant 2. Back Bench Preparation Donor Kidney 3. Baseline Kidney transplant biopsy 4. Insertion of Indwelling Stent 5. Removal of Perihepatic packing Surgeons * Flaquito Ba MD Clerical Warehouseman MD Shayan Findings: Low Hockey stick incision [...] donor was ABO O and UNOS ID [id number], Match Run [id number] ([facility]). This donor was a Donor after [...] was then wanded with the lap detection salon assistant. The incision was ex tented 2 [...] and closure. Flaquito Ba MD Transplant Surgeon sunday school missionary * Flaquito Ba MD - 10/27/2024 6:15 AM EDT TRANSPLANT KIDNEY with bile duct reconstruction Brief Op Note Blair Gilbert 10/27/2024 Pre-op Diagnosis: Acute kidney injury superimposed on CKD (CMS-HCC) [N17.9, N18.9] Post-op Diagnosis: same Procedure(s): TRANSPLANT KIDNEY Surgeon(s): MD Semaj Washington III, MD Anesthesia: General Endotracheal Staff: Saw Cleaner: Chinedu Quinn RN Scrub Person: ST Angela Fellow: Kemar Sahni MD 2nd Saw Cleaner: Marty Clark RN 3rd Saw Cleaner: Candis Mcdaniel RN FINDINGS Berkowitz 3 day Drains: Intraabdominal (perihepatic) UNOS ID [id number], Match Run [id number] Kid WIT 27 min Kid CIT 33 [...] Washington III, MD Anesthesia: General Endotracheal Staff: Saw Cleaner: Chinedu Quinn RN Relief Saw Cleaner: Michela Amos RN Relief Scrub: Stephani Blake RN Scrub Person: ST Angela Fellow: Kemar Sahni MD 2nd Saw Cleaner: Marty Clark RN 3rd Saw Cleaner: Candis Mcdaniel RN Estimated Blood Loss: 300 [...] day Drains: 2 Intraabdominal (perihepatic) UNOS ID [id number], Match Run [id number] Donor: young DCD NRP Kid WIT 27 [...] AM EDT [facility] PATIENT NAME: BLAIR GILBERT DATE OF : 1985 CSN: [id number] PHYSICIAN: Semaj Mcnair III, MD ADMIT DATE: 10/25/2024 DICTATED BY: Semaj Mcnair III, MD SURGERY DATE: 10/27/2024 OPERATIVE REPORT SURGEON: Semaj Mcnair III, MD LUMBER STRAIGHTENED SURGEON: Kemar Sahni MD. PREOPERATIVE DIAGNOSIS: Open [...] were made hemostatic with the argon beam foot piece assembler. We assessed the flows of the portal [...] a mucocele formation. We then performed a epwe-he-bxlc choledochocholedochostomy in an end to end fashion [...] small umbilicalhernia that was closed with a mjymsh-eq-dhkvx 0 PDS suture. At this point, we [...] complications. SEMAJ MCNAIR III, MD RCQ/AQ JOB#: [id number] * Semaj Mcnair III, MD - 10/26/2024 7:00 AM EDT Patient Name: Blair Gilbert Date: 1985 Billing #: [id number] Date of Procedure: 10/25/2024 - 10/26/2024 Diagnosis: Chronic Hepatic Failure without coma Procedure: 1. Orthotopic Liver Transplant 2. Back Bench Preparation Donor Liver 3. Temporary portocaval shunt 4. Perihepatic packing for control of hemorrhage 5. Placement of external choledochal stent 6. Temporary abdominal closure Attending surgeons: Semaj Mcnair III, MD Clerical Warehouseman Surgeon(s): Sveta Judge MD Findings: Whole organ placed in piggyback fashion with suprahepatic cava of donor to common orifice of all three hepatic veins for IVC anastomosis. Donor main portal vein to recipient main portal vein. Donor common hepatic artery to recipient right hepatic artery. Temporary abdominal with perihepatic packingfor control of hemorrhage. Externalization of bile duct with 8 Citizen Of [place] pediatric feeding tube. Portal Flow Modulation No [...] This donor was ABO O and UNOSID [id number], Match Run [id number]. This was a 42-year-old donation after circulatory [...] temporary portocaval shunt to decompress the portal systemas the field was quite bloody. The infrahepatic portion of the IVC was cleared. The portal vein wasdivided close to the liver between clamps. A partial longitudinal clamp was placed on the IVC and avenotomy was made. The portal vein was anastomosed in an end to side fashion to the IVC using a 6-0 prolene suture. Following completion of the anastomosis the clamps were released and there appearedto be good flow through the shunt. Surgical [...] temporary abdominal closure. An 8 Citizen [place] pediatric feeding tube was brought through the [...] Sveta Alves III, MD Anesthesia: General Staff: Saw Cleaner: Mak Maher RN; Marty Clark RN Scrub Person: ST Angela Resident: Thuy Leon MD director search: Jose Daniel rAana RRT Estimated Blood Loss: 19 L Specimens: [...] Number of days: 5 Surgery Information: -UNOS#: [id number] -ABO: O to O -Recipient: SLK candidate [...] 1:19 PM EDTAssociated Order(s): IP CONSULT TO ELASTIC ATTACHER OVERLOCK [facility] Transplant Discharge Education Note Assessment: [...] Gomez, MSN, RN, NPD- Diabetes Education Office [phone] Schedule: M-F 8:00am-4:30pm * Ben Weiss, RD - 10/27/2024 4:06 PM EDTAssociated Order(s): IP CONSULT TO NUTRITION SERVICES; IP CONSULT TO NUTRITION SERVICES TXP - Initial [facility] Medical Nutrition Therapy Reason(s) for [...] I/O: +23.2L net volume. Last BM Date: (ADMINISTRATOR OF HOME HEALTH). Admit Weight: 270 lb (122.5 kg) Current [...] Based on DBW of 93.1 kg Kcals/day: 6820-5813 (25-30 kcals/kg) Protein g/day: 140-190 (1.5-2.0 g/kg) [...] Dietitian - Solid Organ Transplant Contact via [employer] Chat * Lavell Kramer MD - 10/27/2024 11:09 AM EDTAssociated Order(s): INPATIENT CONSULT TO TRANSPLANT INFECTIOUS DISEASES Infectious Disease Consultation Patient: Blair Gilbert CSN: [id number] Assessment & Plan 39 y.o. M s/p [...] blood cx's if febrile Lavell Kramer MD [phone] Chief Complaint Long Qtc History of Present [...] Risk (07/09/2024) Received from [facility] Overall Financial Resource Strain (CARDIA) Difficulty [...] No Physical Activity: Unknown (07/14/2024) Received from [facility] Exercise Vital Sign Days of Exercise per Week: Patient unable to answer Minutes of Exercise per Session: Not on file Stress: Patient Unable To Answer (07/14/2024) Received from [facility] [place] [facility] - Occupational Stress Questionnaire Feeling of Stress : Patient unable to answer Social Connections: Patient Unable To Answer (07/14/2024) Received from [facility] Social Connection and Isolation Panel [NHANES] Frequency of Communication with Friends and Family: Patient unable to answer Frequency of Social Gatherings with Friends and Family: Patient unable to answer Attends Pentecostal Services: Patient unable to answer Active Member [...] 10 mcg/kg/min (10/27/24 1000) sodium chloride 0.45% (05/15 NS) 202 mL/hr (10/27/24 1003) sodium chloride [...] to 4 times a day. DEXCOM G7 SHOP MANAGER Misc Use reader as directed. DEXCOM [...] times a day. naloxone (NARCAN) 4 mg/actuation [place] Apply 1 spray in one nostril if [...] CKD IIIb/IV: - Presumed s/t HRS - Aviation Metalsmith: Yovanny Curran at [facility] Allograft Function: S/p SLK 10/25- (kidney preemptive) [...] 10/27/2024 1500 Gross per 24 hour Intake 71144.28 ml Output 5950 ml Net 6403.28 ml Heme/Anemia: WBC: 5.8 Goal HgB 10-12 mg/dL Hgb: 7.5 Plt 50 Iron: 128 on 10/25/2024 Ferritin 623.2 on 10/25/2024 TIBC: SEE COMMENT on 10/25/2024 % Iron Saturation: SEE COMMENT on 10/25/2024 [id number]: No results found for requested labs within [...] - Monitor renal function. No indications for PRIME MINISTER. Good UOP - Noted KT US WNL [...] preliminary until attending attestation. Lauren Santos, DNP, HOUSEKEEPING ASSISTANT, MAKEUP EDITOR- Transplant Nephrology [phone] Preferred contact: secure chat [1] Allergies Allergen [...] Gonzalez MD, MEd, FASN * Marcellus Anup, MATERIALS CLERK, CHECKING CLERK - 10/27/2024 10:21 AM EDT HEALTH Care Management/Social Work Assessment Patient Information Patient Name: Blair Gilbert Hospital Day: 2 Inpatient/Observation: Inpatient Admit Date: 10/25/2024 Admission Diagnosis: Liver transplant recipient ([facility]) [Z94.4] Attending provider: Semaj Mcnair III, MD PCP: Enedina Mcguire NP Home Pharmacy: [facility] [address] [place] [address] [address] [facility] [address] [facility] [address] Issues related to obtaining medications: N/A Payor Information Medical Insurance Coverage: Payor: [facility] / Plan: [facility] / Product Type: *No Producttype* [...] History: 12 weeks of CD Treatement at [facility] Do you need Substance Abuse [...] No Status & Connection to VA Services [place] Status & Connection to VA Services Are [...] resides with his spouse at their [address] [place] in [place]. 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 Patient's LNOK:Spouse, Abdiaziz Gilbert, Patient has no current or past history of suicidal/homicidal ideation. Patient has a history of mental health diagnoses, PTSD and Generalized Anxiety Disorder. Patient is connected with TransplantPsychiatrist and prescribed Prozac. Patient has a history of alcohol use and has completed 12 weeksof CD Treatment at [facility]. Spouse explained that he will complete a 6 month virtual program post transplant but could not recall the name of the program. Patient has no current tobacco use. No previous need or recommendation for home health care services and no previous placements at long term facility and/or inpatient rehab program. Patient has [...] as appropriate. NUBIA Escalera, RONALDO Phone Number: [phone] * John Moreno MD - 10/26/2024 3:41 AM EDT SURGICAL ICU CONSULT NOTE 10/26/2024 3:41 AM Name: Blair Gilbert [facility]: [id number] HPI: Blair Gilbert is a 39 y.o. [...] at 9:00 PM naloxone (NARCAN) 4 mg/actuation [place] Apply 1 spray in one nostril if [...] % 250 mL infusion 2.5 mcg/min (10/26/24 0338) insulin regular in 0.9 % sodium chloride [...] input(s): PHART , PCO2 , PO2ART , FUE2PQP , BEART in the last 72 hours. [...] at baseline or with provocation, shows no ckdsb-lo-dpxf atrial level shunt. - Pulmonary arteries: Systolic [...] IV pantoprazole while intubated, NPO Last BM: ADMINISTRATOR OF HOME HEALTH Bowel regimen: Senna/Miralax when able Nausea: Zofran PRN FLUID/ELECTROLYTES Recent Labs 10/25/24 2217 NA 137 K 2.1* CL 100 CO2 20* BUN 74* CREATININE 3.87* CALCIUM 9.3 PHOS 5.9* GLUCOSE 114* Intake/Output Summary (Last 24 hours) at 10/26/2024 0341 Last data filed at 10/26/2024 0326 Gross per 24 hour Intake 33290 ml Output 675 ml Net 07621 ml IV Fluids: EPINEPHrine (ADRENALIN) 10 mg [...] results for input(s): TEGANGLE , TEGKTIME , OWAKSGKL09 , TEGMAXAMPL , TEGRTIME , CBMZ in [...] in sodium chloride 0.9% 100 mL IVPB (Evsm9Hbs) 2 g Every 6 hours 10/26/2024 -- Admin Instructions: Use Ictx1Ihq Adapter - Mix Thoroughly Before Administration Notes to Pharmacy: On service order expediter estimated creatinine clearance is 35.9 mL/min (A) (based on SCr of 3.87 mg/dL (H)). Route: Intravenous AMPicillin 2 g in sodium chloride 0.9% 100 mL IVPB (Pfcn2Bhn) 2 g Once 10/26/2024 -- Admin Instructions: Use Nwmk1Qzt Adapter - Mix Thoroughly Before Administration Notes to Pharmacy: On service order expediter estimated creatinine clearance is 35.9 mL/min (A) (based on SCr of 3.87 mg/dL (H)). Route: Intravenous cefTRIAXone (ROCEPHIN) 2 g in sodium chloride 0.9 % 100 mL Evrt3Wcf (Completed) 2 g Once 10/25/2024 10/26/2024 Admin Instructions: Use Peyg5Ssq Adapter - Mix Thoroughly Before Administration Route: [...] 47 (H) 10/26/2024 PO2ART 127 (H) 10/26/2024 NXC0DIM 21 (L) 10/26/2024 BEART -5.4 (L) 10/26/2024 EXZ3ZZZ 94.6 (L) 10/26/2024 D6NDAEJQ 98 10/26/2024 P:F ratio = 363 CARDIOVASCULAR: [...] Acute Care Surgery, and Surgical Critical Care [facility] Academic Office [phone] For Transfers, call [phone] documented in this encounter Nursing Notes * [...] Progressing * Care Coordination - NUBIA Escalera, CHECKING CLERK - 10/31/2024 11:34 AM EDT [facility] Case Management/Social Work Department Progress Note Patient Information Patient Name: Blair Gilbert Hospital day: 6 Inpatient/Observation: Inpatient Level of Care: Transplant Admit date: 10/25/2024 Admission diagnosis: Liver transplant recipient (CMS-HCC) [Z94.4] PMH: has a past medical history of Alcoholic cirrhosis of liver (CMS-HCC), Esophageal varices (CMS-HCC), Hepatorenal syndrome (CMS-HCC), Hypertension, Other hyperlipidemia (07/26/2024), Renal cell carcinoma (CMS-HCC), Thrombocytopenia ([facility]), and Thyroid disease. PCP: Enedina Mcguire NP Home Pharmacy: [facility] [address] [place] [id number] [facility] [address] [place] [address] [facility] [place] [address] [facility] [address] [facility] [id number] Medical Insurance Coverage: Payor: [employer] [...] educator aware that there were no accepting [facility] agencies([facility], [facility], [facility]) and patient would need to outpatient for PT/OT and labs. Discharge Plan Anticipated discharge plan: Home with HHC vs Home with outpatient Anticipated discharge date: 11/01 CM/SW will continue to follow and remain available for discharge planning needs. NUBIA Escalera, RONALDO Cell [phone] * Plan of Care - Paulette Flannery [...] Citlaly Nova - 10/29/2024 1:53 PM EDT [facility] Case Management/Social Work Department Progress Note [...] disease. PCP: Enedina Mcguire NP Home Pharmacy: [facility] [address] [place] [place] - [address] [place] [address] [facility] [address] [facility] [address] [facility] [place] - [place] - [address] [place] [id number] Medical Insurance Coverage: Payor: [employer] [facility] [facility] [...] SW submitted blanket HHC referral to [facility] [employer] [place], [facility], [employer] [facility], and [facility]. Awaiting responses. SW to followpending [...] available for discharge planning needs. NUBIA Rhodes, CHECKING CLERK Inpatient Pot Press Operator/Care Coordination [phone] * Plan of Care - Soco Yap [...] Outcome: Progressing * Care Coordination - NUBIA Ecsalera LSW - 10/28/2024 2:29 PM EDT [facility] Case Management/Social Work Department Progress Note Patient Information Patient Name: Blair Gilbert Hospital day: 3 Inpatient/Observation: Inpatient Level of Care: Transplant Admit date: 10/25/2024 Admission diagnosis: Liver transplant recipient (CMS-HCC) [Z94.4] PMH: has a past medical history of Alcoholic cirrhosis of liver (CMS-HCC), Esophageal varices (CMS-HCC), Hepatorenal syndrome (CMS-HCC), Hypertension, Other hyperlipidemia (07/26/2024), Renal cell carcinoma (CMS-HCC), Thrombocytopenia ([facility]), and Thyroid disease. PCP: Enedina Mcguire NP Home Pharmacy: [facility] [address] [place] [address] [place] [address] [facility] [address] [facility] [address] [facility] [place] - [address] [facility] [address] [place] [address] Medical Insurance Coverage: Payor: [facility] / Plan: [employer] [...] available for discharge planning needs. NUBIA Escalera, CHECKING CLERK Cell [phone] * Plan of Care - Elaine Carrillo [...] at all times. Outcome: Completed Problem: Non-violent, vny-ggnb-imehqmjjnks restraints Description: Less restrictive alternative interventions will [...] protection of medical procedures, or protection of biomedical photographer access. Outcome: Completed * Plan of Care [...] foods as appropriate. Outcome: Progressing Problem: Non-violent, esi-quwh-irszmikxbrm restraints Description: Less restrictive alternative interventions will [...] protection of medical procedures, or protection of biomedical photographer access. Outcome: Progressing * Plan of Care - Shanel Shen RN - 10/27/2024 9:00 AM EDT Problem: Non-violent, yqt-anax-dhhoecqclgz restraints Description: Less restrictive alternative interventions will [...] - 10/26/2024 7:41 PM EDT Problem: Non-violent, khy-zqfq-filpxkucptu restraints Description: Less restrictive alternative interventions will [...] protection of medical procedures, or protection of biomedical photographer access. Outcome: Not Progressing Patient in bilateral [...] restraint flowsheet for further documentation. Problem: Non-violent, onr-cnfa-qtprtuwhbsi restraints Description: Less restrictive alternative interventions will [...] protection of medical procedures, or protection of biomedical photographer access. Outcome: Progressing * Plan of Care [...] 12/05/2024 8:01 AM EDT Hospital Encounter [facility] ENDOSCOPY [address] [place] [address] Chris Orosco MD [address] [place] [phone] 12/05/2024 8:01 AM EDT - 12/05/2024 8:31 AM EDT Surgery [facility] ENDOSCOPY [address] [place] [address] Chris Orosco MD [address] [place] [phone] EGD Scheduled Orders Name Type Priority Associated [...] Routine 10/31/2024 11:59 AM EDT US DUPLEX YZI-WGZPQG-UHDEUHI COMPLETE Routine 10/31/2024 10:19 AM EDT US [...] Routine 10/28/2024 5:31 PM EDT US DUPLEX WLH-MTWPQO-YKTXHQJ COMPLETE STAT 10/28/2024 4:23 PM EDT US [...] Routine 10/27/2024 10:00 AM EDT US DUPLEX PID-GEUIUR-OPOKVBX COMPLETE STAT 10/27/2024 9:51 AM EDT US [...] XR ABDOMEN AP VIEW ONLY STAT 10/28/19 25 7:47 AM EDT TRANSFUSE RED BLOOD CELLS [...] EDT Acute kidney injury superimposed on CKD ([facility]) ROUTINE CULTURE PLUS STAIN Routine 10/27/2024 [...] - 100 mg/dL 11/02/2024 5:45 PM EDT [facility] Blood 11/02/2024 5:44 PM EDT 11/02/2024 5:45 PM EDT us Semaj Mcnair III, MD POINT OF CARE TEST ORDERABLES Final Result Performing Organization Address City/[facility]/ZIP Co de Phone Number [facility] [address] [place] [address] * (ABNORMAL) POC Glucose Monitoring Device (11/02/2024 3:34 PM EDT) POC Glucose Monitoring Device 208(H) 70 - 100 mg/dL 11/02/2024 3:35 PM EDT [facility] Blood 11/02/2024 3:34 PM EDT 11/02/2024 3:35 PM EDT us Semaj Mcnair III, MD POINT OF CARE TEST ORDERABLES Final Result Performing Organization Address City/[facility]/ZIP Co de Phone Number [facility] [address] [place] [address] * (ABNORMAL) POC Glucose Monitoring Device (11/02/2024 1:18 PM EDT) POC Glucose Monitoring Device 225(H) 70 - 100 mg/dL 11/02/2024 1:19 PM EDT [facility] Blood 11/02/2024 1:18 PM EDT 11/02/2024 1:19 PM EDT Semaj Mcnair III, MD POINT OF CARE TEST ORDERABLES Final Result Performing Organization Address City/[facility]/ZIP Co de Phone Number [facility] [address] [place] [address]. [address] * (ABNORMAL) POC Glucose Monitoring Device (11/02/2024 8:59 AM EDT) POC Glucose Monitoring Device 129(H) 70 - 100 mg/dL 11/02/2024 9:00 AM EDT [facility] Blood 11/02/2024 8:59 AM EDT 11/02/2024 9:00 AM EDT Semaj Mcnair III, MD POINT OF CARE TEST ORDERABLES Final Result Performing Organization Address [facility] Center/[facility] Co de Phone Number [address] * Tacrolimus level (11/02/2024 5:53 AM EDT) Pathologist [facility] Tacrolimus (LC-MS) 7.4 3.0 - 15.0 ng/mL 11/02/2024 2:23 PM EDT [facility] Comment:Performed via liquid chromatography tandem mass spectrometry. Detection limit: 1 ng/mL. Individual target concentrations may vary due to target organ and time after transplant. This test has been developed and its performance characteristics determined by [facility] which is certified under [...] PharmD LAB BLOOD ORDERABLES Denisse l Result [facility] [address] [place] [address], [facility] * (ABNORMAL) Renal Function Panel w/EGFR (11/02/2024 5:53 AM EDT) Sodium 140 133 - 146 mmol/L 11/02/2024 6:47 AM EDT [facility] Potassium 3.3(L) 3.5 - 5.3 mmol/L 11/02/2024 6:47 AM EDT [facility] Chloride 107 98 - 110 mmol/L 11/02/2024 6:47 AM EDT [facility] CO2 25 21 - 33 mmol/L 11/02/2024 6:47 AM EDT [facility] Anion Gap 8 3 - 16 mmol/L 11/02/2024 6:47 AM EDT [facility] BUN 31(H) 7 - 25 mg/dL 11/02/2024 6:47 AM EDT [facility] Creatinine 1.08 0.60 - 1.30 mg/dL 11/02/2024 6:47 AM EDT [facility] Glucose 150(H) 70 - 100 mg/dL 11/02/2024 6:47 AM EDT [facility] Calcium 7.8(L) 8.6 - 10.3 mg/dL 11/02/2024 6:47 AM EDT [facility] Phosphorus 2.0(L) 2.1 - 4.7 mg/dL 11/02/2024 6:47 AM EDT [facility] Albumin 3.2(L) 3.5 - 5.7 g/dL 11/02/2024 6:47 AM EDT [facility] Osmolality, Calculated 299 278 - 305 mOsm/kg 11/02/2024 6:47 AM EDT [facility] EGFR 88 11/02/2024 6:47 AM EDT [facility] Comment:As [...] 5:53 AM EDT 11/02/2024 6:12 AM EDT So[employer]ier Evens [facility] LAB BLOOD ORDERABLES Denisse l Result Performing Organization Address [facility] Co de Phone Number [facility] [address] * (ABNORMAL) Magnesium (11/02/2024 5:53 AM EDT) Magnesium 1.3(L) 1.5 - 2.5 mg/dL 11/02/2024 6:47 AM EDT [facility] Plasma 11/02/2024 5:53 AM EDT 11/02/2024 6:12 AM EDT [facility] Horner [facility] LAB BLOOD ORDERABLES Denisse l Result Performing Organization Address [facility]/ZIP Co de Phone Number [facility] [address] [place] [address]. [address] * (ABNORMAL) Hepatic Function Panel (11/02/2024 5:53 AM EDT) Total Bilirubin 1.6(H) 0.0 - 1.5 mg/dL 11/02/2024 6:47 AM EDT [facility] Bilirubin, Direct 0.81(H) 0.00 - 0.40 mg/dL 11/02/2024 6:47 AM EDT [facility] AST 30 13 - 39 U/L 11/02/2024 6:47 AM EDT [facility] ALT 66(H) 7 - 52 U/L 11/02/2024 6:47 AM EDT [facility] Alkaline Phosphatase 126(H) 36 - 125 U/L 11/02/2024 6:47 AM EDT [facility] Total Protein 4.6(L) 6.4 - 8.9 g/dL 11/02/2024 6:47 AM EDT [facility] Albumin 3.2(L) 3.5 - 5.7 g/dL 11/02/2024 6:47 AM EDT [facility] Bilirubin, Indirect 0.79 0.00 - 1.10 mg/dL 11/02/2024 6:47 AM EDT [facility] Plasma 11/02/2024 5:53 AM EDT 11/02/2024 6:12 AM EDT us Beata Horner SPECIAL PROCEDURES TECH LAB BLOOD ORDERABLES Denisse l Result Performing Organization Address City/State/[facility] Co de Phone Number [facility] [address] * (ABNORMAL) CBC (11/02/2024 5:53 AM EDT) WBC 5.8 3.8 - 10.8 10E3/uL 11/02/2024 6:21 AM EDT [facility] RBC 3.12(L) 4.20 - 5.80 10E6/uL 11/02/2024 6:21 AM EDT [facility] Hemoglobin 9.2(L) 13.2 - 17.1 g/dL 11/02/2024 6:21 AM EDT [facility] Hematocrit 27.5(L) 38.5 - 50.0 % 11/02/2024 6:21 AM EDT [facility] MCV 87.9 80.0 - 100.0 fL 11/02/2024 6:21 AM EDT [facility] MCH 29.5 27.0 - 33.0 pg 11/02/2024 6:21 AM EDT [facility] MCHC 33.5 32.0 - 36.0 g/dL 11/02/2024 6:21 AM EDT [facility] RDW 17.5(H) 11.0 - 15.0 % 11/02/2024 6:21 AM EDT [facility] Platelets 61(L) 140 - 400 10E3/uL 11/02/2024 6:21 AM EDT [facility] MPV 7.9 7.5 - 11.5 fL 11/02/2024 6:21 AM EDT [facility] Whole Blood 11/02/2024 5:53 AM EDT 11/02/2024 6:12 AM EDT Beata Horner [facility] LAB BLOOD ORDERABLES Denisse l Result [facility] [address] [place] * (ABNORMAL) POC Glucose Monitoring Device (11/01/2024 9:26 PM EDT) POC Glucose Monitoring Device 199(H) 70 - 100 mg/dL 11/01/2024 9:27 PM EDT [facility] Blood 11/01/2024 9:26 PM EDT 11/01/2024 9:27 PM EDT Semaj Mcnair III, MD POINT OF CARE TEST ORDERABLES Final Result Performing Organization Address City/[facility]/ZIP Co de Phone Number [facility] [address] [place] * (ABNORMAL) POC Glucose Monitoring Device (11/01/2024 5:04 PM EDT) POC Glucose Monitoring Device 255(H) 70 - 100 mg/dL 11/01/2024 5:05 PM EDT [facility] Blood 11/01/2024 5:04 PM EDT 11/01/2024 5:05 PM EDT Semaj Mcnair III, MD POINT OF CARE TEST ORDERABLES Final Result [facility] [address] [place] * (ABNORMAL) Renal Function Panel w/EGFR, STAT (11/01/2024 2:17 PM EDT) Sodium 139 133 - 146 mmol/L 11/01/2024 3:10 PM EDT [facility] Potassium 3.3(L) 3.5 - 5.3 mmol/L 11/01/2024 3:10 PM EDT [facility] Chloride 107 98 - 110 mmol/L 11/01/2024 3:10 PM EDT [facility] CO2 24 21 - 33 mmol/L 11/01/2024 3:10 PM EDT [facility] Anion Gap 8 3 - 16 mmol/L 11/01/2024 3:10 PM EDT [facility] BUN 35(H) 7 - 25 mg/dL 11/01/2024 3:10 PM EDT [facility] Creatinine 1.22 0.60 - 1.30 mg/dL 11/01/2024 3:10 PM EDT [facility] Glucose 203(H) 70 - 100 mg/dL 11/01/2024 3:10 PM EDT [facility] Calcium 8.3(L) 8.6 - 10.3 mg/dL 11/01/2024 3:10 PM EDT [facility] Phosphorus 2.2 2.1 - 4.7 mg/dL 11/01/2024 3:10 PM EDT [facility] Albumin 3.4(L) 3.5 - 5.7 g/dL 11/01/2024 3:10 PM EDT [facility] Osmolality, Calculated 302 278 - 305 mOsm/kg 11/01/2024 3:10 PM EDT [facility] EGFR 76 11/01/2024 3:10 PM EDT [facility] Comment:As [...] Marks MD LAB BLOOD ORDERABLES Final Result [facility] [address] [id number], [facility] * X-ray Portable Abdomen AP view [...] - 100 mg/dL 11/01/2024 12:23 PM EDT [facility] Blood 11/01/2024 12:2 2 PM EDT 11/01/2024 12:23 PM EDT Semaj Mcnair III, MD POINT OF CARE TEST ORDERABLES Final Result Performing Organization Address [facility]/ZIP Co de Phone Number [facility] [address] [place] [address] * (ABNORMAL) POC Glucose Monitoring Device (11/01/2024 8:50 AM EDT) POC Glucose Monitoring Device 175(H) 70 - 100 mg/dL 11/01/2024 8:51 AM EDT [facility] Blood 11/01/2024 8:50 AM EDT 11/01/2024 8:51 AM EDT Semaj Mcnair III, MD POINT OF CARE TEST ORDERABLES Final Result Performing Organization Address City/[facility]/ZIP Co de Phone Number [facility] [address] [place] [address] * Tacrolimus level (11/01/2024 6:01 AM EDT) Tacrolimus (LC-MS) 7.5 3.0 - 15.0 ng/mL 11/01/2024 12:14 PM EDT [facility] Comment:Performed via liquid chromatography tandem mass spectrometry. Detection limit: 1 ng/mL. Individual target concentrations may vary due to target organ and time after transplant. This test has been developed and its performance characteristics determined by [facility] which is certified under [...] PharmD LAB BLOOD ORDERABLES Denisse valle Result [facility] [address] [place] [address], [facility] * (ABNORMAL) Renal Function Panel w/EGFR (11/01/2024 6:01 AM EDT) Sodium 139 133 - 146 mmol/L 11/01/2024 6:57 AM EDT [facility] Potassium 3.3(L) 3.5 - 5.3 mmol/L 11/01/2024 6:57 AM EDT [facility] Chloride 108 98 - 110 mmol/L 11/01/2024 6:57 AM EDT [facility] CO2 22 21 - 33 mmol/L 11/01/2024 6:57 AM EDT [facility] Anion Gap 9 3 - 16 mmol/L 11/01/2024 6:57 AM EDT [facility] BUN 37(H) 7 - 25 mg/dL 11/01/2024 6:57 AM EDT [facility] Creatinine 1.30 0.60 - 1.30 mg/dL 11/01/2024 6:57 AM EDT [facility] Glucose 163(H) 70 - 100 mg/dL 11/01/2024 6:57 AM EDT [facility] Calcium 8.2(L) 8.6 - 10.3 mg/dL 11/01/2024 6:57 AM EDT [facility] Phosphorus 2.9 2.1 - 4.7 mg/dL 11/01/2024 6:57 AM EDT [facility] Albumin 3.1(L) 3.5 - 5.7 g/dL 11/01/2024 6:57 AM EDT [facility] Osmolality, Calculated 300 278 - 305 mOsm/kg 11/01/2024 6:57 AM EDT [facility] EGFR 71 11/01/2024 6:57 AM EDT [facility] Comment:As [...] 11/01/2024 6:20 AM EDT Beata Garland Evens [facility] LAB BLOOD ORDERABLES Denisse l Result Performing Organization Address City/[facility]/ZIP Co de Phone Number [facility] [address] * Magnesium (11/01/2024 6:01 AM EDT) Magnesium 1.5 1.5 - 2.5 mg/dL 11/01/2024 6:57 AM EDT [facility] Plasma 11/01/2024 6:01 AM EDT 11/01/2024 6:20 AM EDT [employer] Evens [facility] LAB BLOOD ORDERABLES Denisse l Result [facility] [address] [place] * (ABNORMAL) Hepatic Function Panel (11/01/2024 6:01 AM EDT) Total Bilirubin 2.0(H) 0.0 - 1.5 mg/dL 11/01/2024 6:57 AM EDT [facility] Bilirubin, Direct 1.06(H) 0.00 - 0.40 mg/dL 11/01/2024 6:57 AM EDT [facility] AST 21 13 - 39 U/L 11/01/2024 6:57 AM EDT [facility] ALT 62(H) 7 - 52 U/L 11/01/2024 6:57 AM EDT [facility] Alkaline Phosphatase 114 36 - 125 U/L 11/01/2024 6:57 AM EDT [facility] Total Protein 4.6(L) 6.4 - 8.9 g/dL 11/01/2024 6:57 AM EDT [facility] Albumin 3.1(L) 3.5 - 5.7 g/dL 11/01/2024 6:57 AM EDT [facility] Bilirubin, Indirect 0.94 0.00 - 1.10 mg/dL 11/01/2024 6:57 AM EDT [facility] Plasma 11/01/2024 6:01 AM EDT 11/01/2024 6:20 AM EDT Beata Horner SPECIAL PROCEDURES TECH LAB BLOOD ORDERABLES Denisse l Result [facility] [address] * (ABNORMAL) CBC (11/01/2024 6:01 AM EDT) WBC 5.9 3.8 - 10.8 10E3/uL 11/01/2024 6:29 AM EDT [facility] RBC 3.19(L) 4.20 - 5.80 10E6/uL 11/01/2024 6:29 AM EDT [facility] Hemoglobin 9.5(L) 13.2 - 17.1 g/dL 11/01/2024 6:29 AM EDT [facility] Hematocrit 27.8(L) 38.5 - 50.0 % 11/01/2024 6:29 AM EDT [facility] MCV 87.1 80.0 - 100.0 fL 11/01/2024 6:29 AM EDT [facility] MCH 29.9 27.0 - 33.0 pg 11/01/2024 6:29 AM EDT [facility] MCHC 34.3 32.0 - 36.0 g/dL 11/01/2024 6:29 AM EDT [facility] RDW 17.4(H) 11.0 - 15.0 % 11/01/2024 6:29 AM EDT [facility] Platelets 56(L) 140 - 400 10E3/uL 11/01/2024 6:29 AM EDT [facility] MPV 8.3 7.5 - 11.5 fL 11/01/2024 6:29 AM EDT [facility] Whole Blood 11/01/2024 6:01 AM EDT 11/01/2024 6:19 AM EDT us Beata Horner SPECIAL PROCEDURES TECH LAB BLOOD ORDERABLES Denisse l Result [facility] [address] * (ABNORMAL) POC Glucose Monitoring Device (10/31/2024 9:15 PM EDT) [facility] POC Glucose Monitoring Device 171(H) 70 - 100 mg/dL 10/31/2024 9:15 PM EDT [facility] Blood 10/31/2024 9:15 PM EDT 10/31/2024 9:15 PM EDT us Semaj Mcnair III, MD POINT OF CARE TEST ORDERABLES Final Result Performing Organization Address City/[facility]/ZIP Co de Phone Number [facility] [address] * (ABNORMAL) POC Glucose Monitoring Device (10/31/2024 5:56 PM EDT) POC Glucose Monitoring Device 179(H) 70 - 100 mg/dL 10/31/2024 5:57 PM EDT [facility] Blood 10/31/2024 5:56 PM EDT 10/31/2024 5:57 PM EDT us Semaj Mcnair III, MD POINT OF CARE TEST ORDERABLES Final Result [facility] [address] [address], [facility] * CT Abdomen and Pelvis WO IV [...] Adrenal gland: No focal nodule seen. Kidneys: [place] kidneys noted with nonobstructing calcifications on the right. 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 Mild right hydronephrosis without an obstructive [...] Adrenal gland: No focal nodule seen. Kidneys: [place] kidneys noted with nonobstructing calcifications on theright. 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 Mildright hydronephrosis without an obstructive course [...] QT: 400 ms QTc: 456 ms P Flourn[place]: 49 degrees R Fl[place]: 3 degrees T Fl[place]: 14 degrees Diagnosis Line: NORMAL SINUS RHYTHM ^ NORMAL ECG ^ ^ Confirmed by MD REID JAMES ([id number]) on 11/02/2024 6:56:52 AM Priti Geiger CNP ECG ORDERABLES Final Result MUSE * (ABNORMAL) Urinalysis w/Rfl to Microscopic (10/31/2024 1:18 PM EDT) Color, UA Straw Yellow,Straw 10/31/2024 1:46 PM EDT [facility] Clarity, UA Clear Clear 10/31/2024 1:46 PM EDT [facility] Specific Crescent, UA 1.013 1.005 - 1.035 10/31/2024 1:46 PM EDT [facility] pH, UA 6.5 5.0 - 8.0 10/31/2024 1:46 PM EDT [facility] Protein, UA Negative Negative mg/dL 10/31/2024 1:46 PM EDT [facility] Glucose, UA Negative Negative mg/dL 10/31/2024 1:46 PM EDT [facility] Ketones, UA Negative Negative mg/dL 10/31/2024 1:46 PM EDT [facility] Bilirubin, UA Negative Negative 10/31/2024 1:46 PM EDT [facility] Blood, UA Large(A) Negative 10/31/2024 1:46 PM EDT [facility] Nitrite, UA Negative Negative 10/31/2024 1:46 PM EDT [facility] Urobilinogen, UA <2.0 0.2 - 1.9 mg/dL 10/31/2024 1:46 PM EDT [facility] Leukocyte Esterase, UA Negative Negative 10/31/2024 1:46 PM EDT [facility] RBC, UA >100(H) 0 - 3 /HPF 10/31/2024 1:46 PM EDT [facility] WBC, UA 3 0 - 5 /HPF 10/31/2024 1:46 PM EDT [facility] Hyaline Casts, UA 3(H) 0 - 2 /LPF 10/31/2024 1:46 PM EDT [facility] Urine 10/31/2024 1:18 PM EDT 10/31/2024 1:32 PM EDT Priti Geiger [facility] URINE ORDERABLES Final Result [facility] [address] * (ABNORMAL) Post Kidney Transplant Urine Culture (10/31/2024 1:18 PM EDT) Culture Result Enterococcus faecium, Vancomycin Resistant(A) [facility] Comment: 1,000- <10,000 cfu/mL Identified by [...] SARMAD >=32: Resistant Comment:See Results Priti Geiger SPECIAL PROCEDURES TECH MICROBIOLOGY - GENERAL ORDERA BLES Final Result [facility] [address] * (ABNORMAL) POC Glucose Monitoring Device (10/31/2024 11:59 AM EDT) POC Glucose Monitoring Device 130(H) 70 - 100 mg/dL 10/31/2024 12:21 PM EDT [facility] Blood 10/31/2024 11:5 9 AM EDT 10/31/2024 12:21 PM EDT Semaj Mcnair III, MD POINT OF CARE TEST ORDERABLES Final Result Performing Organization Address [facility] Co de Phone Number [facility] [address] * US Abdomen Limited (10/31/2024 10:19 [...] EXAM: US ABDOMEN LIMITED EXAM: US DUPLEX [id number] COMPLETE INDICATION: Post-op liver transplant COMPARISON: None [...] visualized secondary to poor acoustic windows. The robinson right kidney measures 11.6 cm in length. [...] EXAM: US ABDOMEN LIMITED EXAM: US DUPLEX [id number] COMPLETE INDICATION: Post-op liver transplant COMPARISON: None [...] well visualized secondary to poor acousticwindows. The robinson right kidney measures 11.6 cm in length. [...] at 10/31/2024 10:35 AM EDT Beata Horner SPECIAL PROCEDURES TECH IMG US ORDERABLES Final R esult * [...] 10:29 AM EDT us Beata Horner [facility] IM US ORDERABLES Final R esult * US Duplex [id number] Comp (10/31/2024 10:19 AM EDT) Anatomical Region [...] EXAM: US ABDOMEN LIMITED EXAM: US DUPLEX [id number] COMPLETE INDICATION: Post-op liver transplant COMPARISON: None [...] visualized secondary to poor acoustic windows. The robinson right kidney measures 11.6 cm in length. [...] EXAM: US ABDOMEN LIMITED EXAM: US DUPLEX [id number] COMPLETE INDICATION: Post-op liver transplant COMPARISON: None [...] well visualized secondary to poor acousticwindows. The robinson right kidney measures 11.6 cm in length. [...] at 10/31/2024 10:35 AM EDT Beata Horner SPECIAL PROCEDURES TECH IMG US ORDERABLES Final R esult * ECG 12-lead (MUSE) (10/31/2024 8:57 AM EDT) 10/31/2024 8:57 AM EDT Narrative MUSE - 11/01/2024 9:21 AM EDT Ventricular Rate: 83 BPM Atrial Rate: 83 BPM P-R Interval: 168 ms QRS Duration: 102 ms QT: 392 ms QTc: 460 ms P Fl[place]: 64 degrees R Fl[place]: -18 degrees T Fl[place]: 7 degrees Diagnosis Line: NORMAL SINUS RHYTHM ^ NORMAL ECG ^ ^ Confirmed by MD JOE, OTIS ([id number]) on 11/01/2024 9:21:13 AM Priti Geiger SPECIAL PROCEDURES TECH ECG ORDERABLES Final Result MUSE * (ABNORMAL) POC Glucose Monitoring Device (10/31/2024 8:44 AM EDT) POC Glucose Monitoring Device 145(H) 70 - 100 mg/dL 10/31/2024 8:45 AM EDT [facility] Blood 10/31/2024 8:44 AM EDT 10/31/2024 8:44 AM EDT Semaj Mcnair III, MD POINT OF CARE TEST ORDERABLES Final Result [facility] [address] [place] [address] * Tacrolimus level (10/31/2024 6:40 AM EDT) Tacrolimus (LC-MS) 8.4 3.0 - 15.0 ng/mL 10/31/2024 10:05 AM EDT [facility] Comment:Performed via liquid chromatography tandem mass spectrometry. Detection limit: 1 ng/mL. Individual target concentrations may vary due to target organ and time after transplant. This test has been developed and its performance characteristics determined by [facility] which is certified under [...] PharmD LAB BLOOD ORDERABLES Denisse valle Result [facility] [address] [place] [address], [facility] * (ABNORMAL) Renal Function Panel w/EGFR (10/31/2024 6:40 AM EDT) Sodium 141 133 - 146 mmol/L 10/31/2024 8:09 AM EDT [facility] Potassium 3.5 3.5 - 5.3 mmol/L 10/31/2024 8:09 AM EDT [facility] Chloride 111(H) 98 - 110 mmol/L 10/31/2024 8:09 AM EDT [facility] CO2 20(L) 21 - 33 mmol/L 10/31/2024 8:09 AM EDT [facility] Anion Gap 10 3 - 16 mmol/L 10/31/2024 8:09 AM EDT [facility] BUN 54(H) 7 - 25 mg/dL 10/31/2024 8:09 AM EDT [facility] Creatinine 1.75(H) 0.60 - 1.30 mg/dL 10/31/2024 8:09 AM EDT [facility] Glucose 136(H) 70 - 100 mg/dL 10/31/2024 8:09 AM EDT [facility] Calcium 8.7 8.6 - 10.3 mg/dL 10/31/2024 8:09 AM EDT [facility] Phosphorus 4.1 2.1 - 4.7 mg/dL 10/31/2024 8:09 AM EDT [facility] Albumin 3.2(L) 3.5 - 5.7 g/dL 10/31/2024 8:09 AM EDT [facility] Osmolality, Calculated 309(H) 278 - 305 mOsm/kg 10/31/2024 8:09 AM EDT [facility] EGFR 50 10/31/2024 8:09 AM EDT [facility] Comment:As [...] 6:40 AM EDT 10/31/2024 7:35 AM EDT [employer] LAB BLOOD ORDERABLES Denisse l Result Performing Organization Address City/[facility]/ZIP Co de Phone Number [facility] [address] * Magnesium (10/31/2024 6:40 AM EDT) Magnesium 1.8 1.5 - 2.5 mg/dL 10/31/2024 8:09 AM EDT [facility] Plasma 10/31/2024 6:40 AM EDT 10/31/2024 7:35 AM EDT [employer] SPECIAL PROCEDURES TECH LAB BLOOD ORDERABLES Denisse l Result [facility] [address] * (ABNORMAL) Hepatic Function Panel (10/31/2024 6:40 AM EDT) Total Bilirubin 2.7(H) 0.0 - 1.5 mg/dL 10/31/2024 8:09 AM EDT [facility] Bilirubin, Direct 1.57(H) 0.00 - 0.40 mg/dL 10/31/2024 8:09 AM EDT [facility] AST 26 13 - 39 U/L 10/31/2024 8:09 AM EDT [facility] ALT 68(H) 7 - 52 U/L 10/31/2024 8:09 AM EDT [facility] Alkaline Phosphatase 112 36 - 125 U/L 10/31/2024 8:09 AM EDT [facility] Total Protein 4.7(L) 6.4 - 8.9 g/dL 10/31/2024 8:09 AM EDT [facility] Albumin 3.2(L) 3.5 - 5.7 g/dL 10/31/2024 8:09 AM EDT [facility] Bilirubin, Indirect 1.13(H) 0.00 - 1.10 mg/dL 10/31/2024 8:09 AM EDT [facility] Plasma 10/31/2024 6:40 AM EDT 10/31/2024 7:35 AM EDT Beata Horner SPECIAL PROCEDURES TECH LAB BLOOD ORDERABLES Denisse l Result [facility] [address] [place] [address], [facility] * (ABNORMAL) CBC (10/31/2024 6:40 AM EDT) Pathologist [facility] WBC 6.0 3.8 - 10.8 10E3/uL 10/31/2024 8:05 AM EDT [facility] RBC 3.14(L) 4.20 - 5.80 10E6/uL 10/31/2024 8:05 AM EDT [facility] Hemoglobin 9.6(L) 13.2 - 17.1 g/dL 10/31/2024 8:05 AM EDT [facility] Hematocrit 27.5(L) 38.5 - 50.0 % 10/31/2024 8:05 AM EDT [facility] MCV 87.6 80.0 - 100.0 fL 10/31/2024 8:05 AM EDT [facility] MCH 30.7 27.0 - 33.0 pg 10/31/2024 8:05 AM EDT [facility] MCHC 35.0 32.0 - 36.0 g/dL 10/31/2024 8:05 AM EDT [facility] RDW 17.9(H) 11.0 - 15.0 % 10/31/2024 8:05 AM EDT [facility] Platelets 44(L) 140 - 400 10E3/uL 10/31/2024 8:05 AM EDT [facility] Comment: CNV Specimen checked for clots. None detected. MPV 8.9 7.5 - 11.5 fL 10/31/2024 8:05 AM EDT [facility] Whole Blood 10/31/2024 6:40 AM EDT 10/31/2024 7:34 AM EDT us Beata Horner [facility] BLOOD ORDERABLES Denisse l Result [facility] [address] * (ABNORMAL) POC Glucose Monitoring Device (10/30/2024 9:01 PM EDT) POC Glucose Monitoring Device 144(H) 70 - 100 mg/dL 10/30/2024 9:02 PM EDT [facility] Blood 10/30/2024 9:01 PM EDT 10/30/2024 9:01 PM EDT Semaj Mcnair III, MD POINT OF CARE TEST ORDERABLES Final Result [facility] [address] * (ABNORMAL) POC Glucose Monitoring Device (10/30/2024 5:37 PM EDT) POC Glucose Monitoring Device 124(H) 70 - 100 mg/dL 10/30/2024 5:47 PM EDT [facility] Blood 10/30/2024 5:37 PM EDT 10/30/2024 5:47 PM EDT us Semaj Mcnair III, MD POINT OF CARE TEST ORDERABLES Final Result Performing Organization Address [facility] de Phone Number [facility] [address] [place] [address] * (ABNORMAL) POC Glucose Monitoring Device (10/30/2024 7:26 AM EDT) POC Glucose Monitoring Device 150(H) 70 - 100 mg/dL 10/30/2024 7:27 AM EDT [facility] Blood 10/30/2024 7:26 AM EDT 10/30/2024 7:27 AM EDT Semaj Mcnair III, MD POINT OF CARE TEST ORDERABLES Final Result Performing Organization Address [facility] de Phone Number [facility] [address] [place] [address] * Tacrolimus level (10/30/2024 7:13 AM EDT) Pathologist [facility] Tacrolimus (LC-MS) 9.5 3.0 - 15.0 ng/mL 10/30/2024 2:53 PM EDT [facility] Comment:Performed via liquid chromatography tandem mass spectrometry. Detection limit: 1 ng/mL. Individual target concentrations may vary due to target organ and time after transplant. This test has been developed and its performance characteristics determined by [facility] which is certified under [...] EDT 10/30/2024 7:26 AM EDT Priti Geiger SPECIAL PROCEDURES TECH LAB BLOOD ORDERABLES Final Re sult [facility] [address] [place] [address], [facility] * ECG 12-lead (MUSE) (10/30/2024 6:51 AM EDT) 10/30/2024 6:51 AM EDT Narrative MUSE - 11/01/2024 9:21 AM EDT Ventricular Rate: 92 BPM Atrial Rate: 92 BPM P-R Interval: 174 ms QRS Duration: 96 ms QT: 376 ms QTc: 464 ms P Flournoy: 54 degrees R Flournoy: -24 degrees T Flournoy: 11 degrees Diagnosis Line: NORMAL SINUS RHYTHM ^ NORMAL ECG ^ ^ Confirmed by MD JOE, OTIS ([id number]) on 11/01/2024 9:21:09 AM [employer] SPECIAL PROCEDURES TECH ECG ORDERABLES Final Result Performing Organization Address City/[facility]/ZIP Co de Phone Number MUSE * (ABNORMAL) Renal Function Panel w/EGFR (10/30/2024 5:41 AM EDT) Sodium 140 133 - 146 mmol/L 10/30/2024 6:18 AM EDT [facility] Potassium 3.8 3.5 - 5.3 mmol/L 10/30/2024 6:18 AM EDT [facility] Chloride 111(H) 98 - 110 mmol/L 10/30/2024 6:18 AM EDT [facility] CO2 17(L) 21 - 33 mmol/L 10/30/2024 6:18 AM EDT [facility] Anion Gap 12 3 - 16 mmol/L 10/30/2024 6:18 AM EDT [facility] BUN 62(H) 7 - 25 mg/dL 10/30/2024 6:18 AM EDT [facility] Creatinine 1.96(H) 0.60 - 1.30 mg/dL 10/30/2024 6:18 AM EDT [facility] Glucose 116(H) 70 - 100 mg/dL 10/30/2024 6:18 AM EDT [facility] Calcium 9.0 8.6 - 10.3 mg/dL 10/30/2024 6:18 AM EDT [facility] Phosphorus 4.6 2.1 - 4.7 mg/dL 10/30/2024 6:18 AM EDT [facility] Albumin 3.2(L) 3.5 - 5.7 g/dL 10/30/2024 6:18 AM EDT [facility] Osmolality, Calculated 309(H) 278 - 305 mOsm/kg 10/30/2024 6:18 AM EDT [facility] EGFR 43 10/30/2024 6:18 AM EDT [facility] Comment:As [...] 5:41 AM EDT 10/30/2024 5:47 AM EDT SoFier Evens SPECIAL PROCEDURES TECH LAB BLOOD ORDERABLES Denisse l Result [facility] [address] [place], [place] [address] * Magnesium (10/30/2024 5:41 AM EDT) Magnesium 2.2 1.5 - 2.5 mg/dL 10/30/2024 6:18 AM EDT [facility] Plasma 10/30/2024 5:41 AM EDT 10/30/2024 5:47 AM EDT SoFibrook Horner [facility] BLOOD ORDERABLES Denisse l Result [facility] [address] [place] * (ABNORMAL) Hepatic Function Panel (10/30/2024 5:41 AM EDT) Total Bilirubin 3.6(H) 0.0 - 1.5 mg/dL 10/30/2024 6:18 AM EDT [facility] Bilirubin, Direct 1.95(H) 0.00 - 0.40 mg/dL 10/30/2024 6:18 AM EDT [facility] AST 33 13 - 39 U/L 10/30/2024 6:18 AM EDT [facility] ALT 71(H) 7 - 52 U/L 10/30/2024 6:18 AM EDT [facility] Alkaline Phosphatase 80 36 - 125 U/L 10/30/2024 6:18 AM EDT [facility] Total Protein 4.8(L) 6.4 - 8.9 g/dL 10/30/2024 6:18 AM EDT [facility] Albumin 3.2(L) 3.5 - 5.7 g/dL 10/30/2024 6:18 AM EDT [facility] Bilirubin, Indirect 1.65(H) 0.00 - 1.10 mg/dL 10/30/2024 6:18 AM EDT [facility] Plasma 10/30/2024 5:41 AM EDT 10/30/2024 5:47 AM EDT Beata Horner [facility] BLOOD ORDERABLES Denisse l Result [facility] [address] [place] [address], [facility] * (ABNORMAL) CBC (10/30/2024 5:41 AM EDT) WBC 8.1 3.8 - 10.8 10E3/uL 10/30/2024 8:06 AM EDT [facility] RBC 3.29(L) 4.20 - 5.80 10E6/uL 10/30/2024 8:06 AM EDT [facility] Hemoglobin 10.1(L) 13.2 - 17.1 g/dL 10/30/2024 8:06 AM EDT [facility] Hematocrit 28.8(L) 38.5 - 50.0 % 10/30/2024 8:06 AM EDT [facility] MCV 87.6 80.0 - 100.0 fL 10/30/2024 8:06 AM EDT [facility] MCH 30.6 27.0 - 33.0 pg 10/30/2024 8:06 AM EDT [facility] MCHC 34.9 32.0 - 36.0 g/dL 10/30/2024 8:06 AM EDT [facility] RDW 18.1(H) 11.0 - 15.0 % 10/30/2024 8:06 AM EDT [facility] Platelets 44(L) 140 - 400 10E3/uL 10/30/2024 8:06 AM EDT [facility] Comment: CNV Specimen checked for clots. None detected. MPV 8.3 7.5 - 11.5 fL 10/30/2024 8:06 AM EDT [facility] Whole Blood 10/30/2024 5:41 AM EDT 10/30/2024 5:50 AM EDT us Beata Horner [facility] BLOOD ORDERABLES Denisse l Result [facility] [address] * (ABNORMAL) POC Glucose Monitoring Device (10/29/2024 10:18 PM EDT) [facility] POC Glucose Monitoring Device 140(H) 70 - 100 mg/dL 10/29/2024 10:18 PM EDT [facility] Blood 10/29/2024 10:1 8 PM EDT 10/29/2024 10:18 PM EDT Semaj Mcnair III, MD POINT OF CARE TEST ORDERABLES Final Result [facility] [address] * (ABNORMAL) POC Glucose Monitoring Device (10/29/2024 6:42 PM EDT) POC Glucose Monitoring Device 152(H) 70 - 100 mg/dL 10/29/2024 6:43 PM EDT [facility] Blood 10/29/2024 6:42 PM EDT 10/29/2024 6:43 PM EDT Semaj Mcnair III, MD POINT OF CARE TEST ORDERABLES Final Result [address] * (ABNORMAL) POC Glucose Monitoring Device (10/29/2024 11:35 AM EDT) POC Glucose Monitoring Device 130(H) 70 - 100 mg/dL 10/29/2024 11:36 AM EDT [facility] Blood 10/29/2024 11:3 5 AM EDT 10/29/2024 11:36 AM EDT Semaj Mcnair III, MD POINT OF CARE TEST ORDERABLES Final Result [address] * ECG 12 lead (MUSE) (10/29/2024 9:34 AM EDT) 10/29/2024 9:34 AM EDT Narrative MUSE - 10/29/2024 10:34 PM EDT Ventricular Rate: 97 BPM Atrial Rate: 97 BPM P-R Interval: 186 ms QRS Duration: 104 ms QT: 382 ms QTc: 485 ms P [place]: 54 degrees R [place]: -21 degrees T [place]: 1 degrees Diagnosis Line: NORMAL SINUS RHYTHM ^ NORMAL ECG ^ Confirmed by JORGE MACIAS ([id number]) on 10/29/2024 10:34:50 PM Afshan Bear MD ECG ORDERABLES Final Result Performing Organization Address City/[facility]/ZIP Co de Phone Number MUSE * Tacrolimus level (10/29/2024 8:08 AM EDT) Pathologist [facility] Tacrolimus (LC-MS) 10.4 3.0 - 15.0 ng/mL 10/29/2024 2:07 PM EDT [facility] Comment:Performed via liquid chromatography tandem mass spectrometry. Detection limit: 1 ng/mL. Individual target concentrations may vary due to target organ and time after transplant. This test has been developed and its performance characteristics determined by [facility] which is certified under the Clinical Laboratory [...] 10/29/2024 8:21 AM EDT Priti Geiger [facility] BLOOD ORDERABLES Final Re sult Performing Organization Address [facility] Co de Phone Number [facility] [address] * Prepare RBC, leukoreduced, 1 Units (10/29/2024 6:16 AM EDT) Product Code Q0910D86 HCLL Unit Number [id number] HCLL Dispense Status Presumed Transfused_PT HCLL Blood Expiration Date [id number] HCLL Coding System [id number] HCLL Blood Bank Product Shay Plata MD BLOOD BANK PRODUCT O RDERABLES Final Result Performing Organization Address City/[facility]/ZIP Co de Phone Number HCLL * Prepare RBC, leukoreduced, 1 Units (10/29/2024 6:15 AM EDT) Product Code D8159N16 HCLL Unit Number [id number] HCLL Dispense Status Presumed Transfused_PT HCLL Blood Expiration Date [id number] HCLL Coding System [id number] [facility] Blood Bank Product Carlos Marks MD BLOOD BANK PRODUCT ORDERABL ES Final Result HCLL * Prepare RBC, leukoreduced, 1 Units (10/29/2024 6:15 AM EDT) Product Code V3649O17 HCLL Unit Number [id number] HCLL Dispense Status Presumed Transfused_PT HCLL Blood Expiration Date [id number] HCLL Coding System [id number] HCLL Blood Bank Product John Moreno MD BLOOD BANK PRODUCT ORDERABLE S Final Result HCLL * (ABNORMAL) Renal Function Panel w/EGFR (10/29/2024 5:07 AM EDT) Sodium 144 133 - 146 mmol/L 10/29/2024 5:49 AM EDT [facility] Potassium 3.8 3.5 - 5.3 mmol/L 10/29/2024 5:49 AM EDT [facility] Chloride 113(H) 98 - 110 mmol/L 10/29/2024 5:49 AM EDT [facility] CO2 17(L) 21 - 33 mmol/L 10/29/2024 5:49 AM EDT [facility] Anion Gap 14 3 - 16 mmol/L 10/29/2024 5:49 AM EDT [facility] BUN 57(H) 7 - 25 mg/dL 10/29/2024 5:49 AM EDT [facility] Creatinine 1.93(H) 0.60 - 1.30 mg/dL 10/29/2024 5:49 AM EDT [facility] Glucose 110(H) 70 - 100 mg/dL 10/29/2024 5:49 AM EDT [facility] Calcium 9.3 8.6 - 10.3 mg/dL 10/29/2024 5:49 AM EDT [facility] Phosphorus 4.8(H) 2.1 - 4.7 mg/dL 10/29/2024 5:49 AM EDT [facility] Albumin 3.5 3.5 - 5.7 g/dL 10/29/2024 5:49 AM EDT [facility] Osmolality, Calculated 314(H) 278 - 305 mOsm/kg 10/29/2024 5:49 AM EDT [facility] EGFR 44 10/29/2024 5:49 AM EDT [facility] Comment:As [...] EDT 10/29/2024 5:13 AM EDT Beata Dada Evens SPECIAL PROCEDURES TECH LAB BLOOD ORDERABLES Denisse l Result [facility] [address] [place], [place] [address] * Magnesium (10/29/2024 5:07 AM EDT) Magnesium 2.1 1.5 - 2.5 mg/dL 10/29/2024 5:49 AM EDT [facility] Plasma 10/29/2024 5:07 AM EDT 10/29/2024 5:13 AM EDT SoFier Evens SPECIAL PROCEDURES TECH LAB BLOOD ORDERABLES Denisse l Result Performing Organization Address [facility]/ZIP Co de Phone Number [facility] [address] [place] * (ABNORMAL) Hepatic Function Panel (10/29/2024 5:07 AM EDT) Total Bilirubin 4.2(H) 0.0 - 1.5 mg/dL 10/29/2024 5:49 AM EDT [facility] Bilirubin, Direct 2.85(H) 0.00 - 0.40 mg/dL 10/29/2024 5:49 AM EDT [facility] AST 31 13 - 39 U/L 10/29/2024 5:49 AM EDT [facility] ALT 88(H) 7 - 52 U/L 10/29/2024 5:49 AM EDT [facility] Alkaline Phosphatase 51 36 - 125 U/L 10/29/2024 5:49 AM EDT [facility] Total Protein 5.2(L) 6.4 - 8.9 g/dL 10/29/2024 5:49 AM EDT [facility] Albumin 3.5 3.5 - 5.7 g/dL 10/29/2024 5:49 AM EDT [facility] Bilirubin, Indirect 1.35(H) 0.00 - 1.10 mg/dL 10/29/2024 5:49 AM EDT [facility] Plasma 10/29/2024 5:07 AM EDT 10/29/2024 5:13 AM EDT Beata Horner [facility] BLOOD ORDERABLES Denisse l Result Performing Organization Address [facility]/State/ZIP Co de Phone Number [facility] [address] [facility]. [address] * (ABNORMAL) CBC (10/29/2024 5:07 AM EDT) WBC 7.8 3.8 - 10.8 10E3/uL 10/29/2024 5:38 AM EDT [facility] RBC 3.05(L) 4.20 - 5.80 10E6/uL 10/29/2024 5:38 AM EDT [facility] Hemoglobin 9.0(L) 13.2 - 17.1 g/dL 10/29/2024 5:38 AM EDT [facility] Hematocrit 26.7(L) 38.5 - 50.0 % 10/29/2024 5:38 AM EDT [facility] MCV 87.4 80.0 - 100.0 fL 10/29/2024 5:38 AM EDT [facility] MCH 29.7 27.0 - 33.0 pg 10/29/2024 5:38 AM EDT [facility] MCHC 33.9 32.0 - 36.0 g/dL 10/29/2024 5:38 AM EDT [facility] RDW 18.3(H) 11.0 - 15.0 % 10/29/2024 5:38 AM EDT [facility] Platelets 41(L) 140 - 400 10E3/uL 10/29/2024 5:38 AM EDT [facility] Comment: CNV Specimen checked for clots. None detected. MPV 7.5 7.5 - 11.5 fL 10/29/2024 5:38 AM EDT [facility] Whole Blood 10/29/2024 5:07 AM EDT 10/29/2024 5:13 AM EDT Beata Horner [facility] BLOOD ORDERABLES Denisse valle Result [facility] [address] [place] [address], [facility] * (ABNORMAL) TEG-Bypass/ECMO/Liver HN (Factor function, Platelet/Fibrin Clot Strength w/Clot Breakdown, Heparinase In All Channels) (10/29/2024 5:07 AM EDT) Citrated Kaolin Reaction Time (TEGECMOLIVER) 8.9 4.6 - 9.1 minutes 10/29/2024 7:04 AM EDT [facility] Citrated Kaolin W/Heparinase Reaction Time (TEGECMOLIVER) 7.4 4.3 - 8.3 minutes 10/29/2024 7:04 AM EDT [facility] Citrated Kaolin Maximum Amplitude (TEGECMOLIVER) 52.9 52.0 - 69.0 mm 10/29/2024 7:04 AM EDT [facility] Citrated Functional Fibrinogen W/Heparinase Maximum Amplitude(TEGEC MOLIVER) 20.7 15.0 - 34.0 mm 10/29/2024 7:04 AM EDT [facility] Citrated Rapid Teg W/Heparinase Maximum Amplitude (TEGECMOLIVER) 49.7(L) 53.0 - 69.0 mm 10/29/2024 7:04 AM EDT [facility] Citrated Kaolin w/Heparinase Percent Lysis (TEGECMOLIVER) 0.0 0.0 - 3.2 % 10/29/2024 7:04 AM EDT [facility] Whole Blood (Citrate) 10/29/2024 5:07 AM EDT 10/29/2024 5:10 AM EDT us Kemar Sahni MD LAB BLOOD ORDERABLES Final Result Performing Organization Address City/State/[facility] Co de Phone Number [facility] [address] [place], [place] [address] * (ABNORMAL) TEG-Bypass/ECMO/Liver HN (Factor function, Platelet/Fibrin Clot Strength w/Clot Breakdown, Heparinase In All Channels) (10/28/2024 11:55 PM EDT) [facility] Citrated Kaolin Reaction Time (TEGECMOLIVER) 8.6 4.6 - 9.1 minutes 10/29/2024 2:01 AM EDT [facility] Citrated Kaolin W/Heparinase Reaction Time (TEGECMOLIVER) 8.7(H) 4.3 - 8.3 minutes 10/29/2024 2:01 AM EDT [facility] Citrated Kaolin Maximum Amplitude (TEGECMOLIVER) 47.9(L) 52.0 - 69.0 mm 10/29/2024 2:01 AM EDT [facility] Citrated Functional Fibrinogen W/Heparinase Maximum Amplitude(TEGEC MOLIVER) 22.0 15.0 - 34.0 mm 10/29/2024 2:01 AM EDT [facility] Citrated Rapid Teg W/Heparinase Maximum Amplitude (TEGECMOLIVER) 45.9(L) 53.0 - 69.0 mm 10/29/2024 2:01 AM EDT [facility] Citrated Kaolin w/Heparinase Percent Lysis (TEGECMOLIVER) 0.0 0.0 - 3.2 % 10/29/2024 2:01 AM EDT [facility] Whole Blood (Citrate) 10/28/2024 11:55 PM EDT 10/28/2024 11:58 PM EDT us Kemar Sahni MD LAB BLOOD ORDERABLES Final Result [facility] [address] [place] [address], [facility] * (ABNORMAL) CBC, STAT (10/28/2024 8:04 PM EDT) WBC 3.9 3.8 - 10.8 10E3/uL 10/28/2024 8:36 PM EDT [facility] RBC 2.66(L) 4.20 - 5.80 10E6/uL 10/28/2024 8:36 PM EDT [facility] Hemoglobin 8.0(L) 13.2 - 17.1 g/dL 10/28/2024 8:36 PM EDT [facility] Hematocrit 23.0(L) 38.5 - 50.0 % 10/28/2024 8:36 PM EDT [facility] MCV 86.4 80.0 - 100.0 fL 10/28/2024 8:36 PM EDT [facility] MCH 29.9 27.0 - 33.0 pg 10/28/2024 8:36 PM EDT [facility] MCHC 34.6 32.0 - 36.0 g/dL 10/28/2024 8:36 PM EDT [facility] RDW 18.6(H) 11.0 - 15.0 % 10/28/2024 8:36 PM EDT [facility] Platelets 29(L) 140 - 400 10E3/uL 10/28/2024 8:36 PM EDT [facility] Comment: CNV Specimen checked for clots. None detected. MPV 7.8 7.5 - 11.5 fL 10/28/2024 8:36 PM EDT [facility] Whole Blood 10/28/2024 8:04 PM EDT 10/28/2024 8:14 PM EDT Carlos Marks MD LAB BLOOD ORDERABLES Final Result [facility] [address] * (ABNORMAL) POC Glucose Monitoring Device (10/28/2024 8:03 PM EDT) POC Glucose Monitoring Device 122(H) 70 - 100 mg/dL 10/28/2024 8:04 PM EDT [facility] Blood 10/28/2024 8:03 PM EDT 10/28/2024 8:04 PM EDT Semaj Mcnair III, MD POINT OF CARE TEST ORDERABLES Final Result Performing Organization Address [facility]/ZIP Co de Phone Number [facility] [address] * (ABNORMAL) TEG-Bypass/ECMO/Liver HN (Factor function, Platelet/Fibrin Clot Strength w/Clot Breakdown, Heparinase In All Channels) (10/28/2024 6:39 PM EDT) Citrated Kaolin Reaction Time (TEGECMOLIVER) 9.0 4.6 - 9.1 minutes 10/28/2024 7:50 PM EDT [facility] Citrated Kaolin W/Heparinase Reaction Time (TEGECMOLIVER) 8.3 4.3 - 8.3 minutes 10/28/2024 7:50 PM EDT [facility] Citrated Kaolin Maximum Amplitude (TEGECMOLIVER) 47.6(L) 52.0 - 69.0 mm 10/28/2024 7:50 PM EDT [facility] Citrated Functional Fibrinogen W/Heparinase Maximum Amplitude(TEGEC MOLIVER) 20.4 15.0 - 34.0 mm 10/28/2024 7:50 PM EDT [facility] Citrated Rapid Teg W/Heparinase Maximum Amplitude (TEGECMOLIVER) 44.0(L) 53.0 - 69.0 mm 10/28/2024 7:50 PM EDT [facility] Citrated Kaolin w/Heparinase Percent Lysis (TEGECMOLIVER) 0.0 0.0 - 3.2 % 10/28/2024 7:50 PM EDT [facility] Whole Blood (Citrate) 10/28/2024 6:39 PM EDT 10/28/2024 6:42 PM EDT us Kemar Sahni MD LAB BLOOD ORDERABLES Final Result Performing Organization Address [facility] Co de Phone Number [facility] [address] [place] * (ABNORMAL) POC Glucose Monitoring Device (10/28/2024 5:31 PM EDT) [facility] POC Glucose Monitoring Device 130(H) 70 - 100 mg/dL 10/28/2024 5:31 PM EDT [facility] Blood 10/28/2024 5:31 PM EDT 10/28/2024 5:31 PM EDT us Semaj Mcnair III, MD POINT OF CARE TEST ORDERABLES Final Result Performing Organization Address [facility] Co de Phone Number [facility] [address] [place] * Transfuse RBC Transfusion Rate: Per dept routine (10/28/2024 5:23 PM EDT) us Shay Plata MD NURSING TREATMENT OR DERABLES - BLOOD ADMIN Final Result Performing Organization Address City/[facility]/ZIP Co de Phone Number EXTERNAL * Transfuse RBC Transfusion Rate: Per dept routine, 1 Units (10/28/2024 5:23 PM EDT) us Shay Plata MD NURSING TREATMENT OR DERABLES - BLOOD ADMIN Final Result Performing Organization Address City/[facility]/ZIP Co de Phone Number EXTERNAL [...] EXAM: US ABDOMEN LIMITED EXAM: US DUPLEX [id number] COMPLETE INDICATION: Post-op liver transplant DATE: 10/28/2024 [...] retrohepatic inferior vena cava is patent. The robinson right kidney is partially visualized. A prominent [...] EXAM: US ABDOMEN LIMITED EXAM: US DUPLEX [id number] COMPLETE INDICATION: Post-op liver transplant DATE: 10/28/2024 [...] retrohepatic inferior vena cava is patent. The robinson right kidney is partially visualized. A prominent [...] 10/28/2024 4:42 PM EDT Shay Plata MD IM US ORDERABLES Fi nal Result * US Duplex [id number] Comp (10/28/2024 4:23 PM EDT) Anatomical Region [...] EXAM: US ABDOMEN LIMITED EXAM: US DUPLEX [id number] COMPLETE INDICATION: Post-op liver transplant DATE: 10/28/2024 [...] retrohepatic inferior vena cava is patent. The robinson right kidney is partially visualized. A prominent [...] EXAM: US ABDOMEN LIMITED EXAM: US DUPLEX [id number] COMPLETE INDICATION: Post-op liver transplant DATE: 10/28/2024 [...] retrohepatic inferior vena cava is patent. The robinson right kidney is partially visualized. A prominent [...] - 10.8 10E3/uL 10/28/2024 3:07 PM EDT [facility] RBC 2.44(L) 4.20 - 5.80 10E6/uL 10/28/2024 3:07 PM EDT [facility] Hemoglobin 7.5(L) 13.2 - 17.1 g/dL 10/28/2024 3:07 PM EDT [facility] Hematocrit 21.4(L) 38.5 - 50.0 % 10/28/2024 3:07 PM EDT [facility] MCV 87.6 80.0 - 100.0 fL 10/28/2024 3:07 PM EDT [facility] MCH 30.6 27.0 - 33.0 pg 10/28/2024 3:07 PM EDT [facility] MCHC 34.9 32.0 - 36.0 g/dL 10/28/2024 3:07 PM EDT [facility] RDW 18.4(H) 11.0 - 15.0 % 10/28/2024 3:07 PM EDT [facility] Platelets 30(L) 140 - 400 10E3/uL 10/28/2024 3:07 PM EDT [facility] Comment: CNV Specimen checked for clots. None detected. MPV 7.7 7.5 - 11.5 fL 10/28/2024 3:07 PM EDT [facility] Whole Blood 10/28/2024 2:49 PM EDT 10/28/2024 2:53 PM EDT Carlos Marks MD LAB BLOOD ORDERABLES Final Result Performing Organization Address [facility] Co de Phone Number [facility] [address] * ECG 12 lead (MUSE) (10/28/2024 1:22 PM EDT) 10/28/2024 1:22 PM EDT Narrative MUSE - 10/29/2024 10:34 PM EDT Ventricular Rate: 104 BPM Atrial Rate: 104 BPM P-R Interval: 172 ms QRS Duration: 90 ms QT: 354 ms QTc: 465 ms P [place]: 58 degrees R [place]: -19 degrees T [place]: 38 degrees Diagnosis Line: SINUS TACHYCARDIA ^ OTHERWISE NORMAL ECG ^ ^ Confirmed by JORGE MACIAS ([id number]) on 10/29/2024 10:34:22 PM Hillary Fernandes PharmD ECG ORDERABLES Final Res ult Performing Organization Address [facility] de Phone Number MUSE * (ABNORMAL) POC Glucose Monitoring Device (10/28/2024 12:54 PM EDT) [facility] POC Glucose Monitoring Device 119(H) 70 - 100 mg/dL 10/28/2024 12:55 PM EDT [facility] Blood 10/28/2024 12:5 4 PM EDT 10/28/2024 12:55 PM EDT Semaj Mcnair III, MD POINT OF CARE TEST ORDERABLES Final Result Performing Organization Address [facility] Co de Phone Number [facility] [address] [place] [address], [facility] * Transfuse RBC Transfusion Rate: Per dept routine (10/28/2024 12:31 PM EDT) Carlos Marks MD NURSING TREATMENT ORDERABLE S - BLOOD ADMIN Final Result Performing Organization Address [facility] Co de Phone Number EXTERNAL * Transfuse RBC Transfusion Rate: Per dept routine, 1 Units (10/28/2024 12:31 PM EDT) us Carlos Marks MD NURSING TREATMENT ORDERABLE S - BLOOD ADMIN Final Result EXTERNAL * Protime-INR, STAT (10/28/2024 11:09 AM EDT) Protime 14.3 12.1 - 15.1 seconds 10/28/2024 11:29 AM EDT [facility] INR 1.1 0.9 - 1.1 10/28/2024 11:29 AM EDT [facility] Comment: RECOMMENDED THERAPEUTIC RANGES USING INR : Stable oral anticoagulant therapy: 2.0 - 3.0 Mechanical prosthetic heart valve: 2.5 - 3.5 Recurrent acute myocardial infarction: 2.5 - 3.5 Plasma 10/28/2024 11:0 9 AM EDT 10/28/2024 11:16 AM EDT us Carlos Marks MD LAB BLOOD ORDERABLES Final Result Performing Organization Address [facility] de Phone Number [facility] [address] * (ABNORMAL) Lactic Acid, STAT (10/28/2024 11:09 AM EDT) Lactate 0.3(L) 0.5 - 2.2 mmol/L 10/28/2024 11:37 AM EDT [facility] Plasma 10/28/2024 11:0 9 AM EDT 10/28/2024 11:15 AM EDT us Carlos Marks MD LAB BLOOD ORDERABLES Final Result Performing Organization Address City/[facility] Co de Phone Number [facility] [address] * Magnesium, STAT (10/28/2024 11:09 AM EDT) Magnesium 2.1 1.5 - 2.5 mg/dL 10/28/2024 11:47 AM EDT [facility] Plasma 10/28/2024 11:0 9 AM EDT 10/28/2024 11:16 AM EDT Carlos Marks MD LAB BLOOD ORDERABLES Final Result [facility] [address] [id number], [facility] * (ABNORMAL) Renal Function Panel w/EGFR, STAT (10/28/2024 11:09 AM EDT) Sodium 144 133 - 146 mmol/L 10/28/2024 11:47 AM EDT [facility] Potassium 3.4(L) 3.5 - 5.3 mmol/L 10/28/2024 11:47 AM EDT [facility] Chloride 112(H) 98 - 110 mmol/L 10/28/2024 11:47 AM EDT [facility] CO2 22 21 - 33 mmol/L 10/28/2024 11:47 AM EDT [facility] Anion Gap 10 3 - 16 mmol/L 10/28/2024 11:47 AM EDT [facility] BUN 57(H) 7 - 25 mg/dL 10/28/2024 11:47 AM EDT [facility] Creatinine 2.01(H) 0.60 - 1.30 mg/dL 10/28/2024 11:47 AM EDT [facility] Glucose 108(H) 70 - 100 mg/dL 10/28/2024 11:47 AM EDT [facility] Calcium 8.8 8.6 - 10.3 mg/dL 10/28/2024 11:47 AM EDT [facility] Phosphorus 4.0 2.1 - 4.7 mg/dL 10/28/2024 11:47 AM EDT [facility] Albumin 3.3(L) 3.5 - 5.7 g/dL 10/28/2024 11:47 AM EDT [facility] Osmolality, Calculated 314(H) 278 - 305 mOsm/kg 10/28/2024 11:47 AM EDT [facility] EGFR 42 10/28/2024 11:47 AM EDT [facility] Comment:As [...] Marks MD LAB BLOOD ORDERABLES Final Result [facility] [address] * (ABNORMAL) TEG-Bypass/ECMO/Liver HN (Factor function, Platelet/Fibrin Clot Strength w/Clot Breakdown, Heparinase In All Channels) (10/28/2024 11:09 AM EDT) Pathologist [facility] Citrated Kaolin Reaction Time (TEGECMOLIVER) 9.2(H) 4.6 - 9.1 minutes 10/28/2024 12:30 PM EDT [facility] Citrated Kaolin W/Heparinase Reaction Time (TEGECMOLIVER) 9.6(H) 4.3 - 8.3 minutes 10/28/2024 12:30 PM EDT [facility] Citrated Kaolin Maximum Amplitude (TEGECMOLIVER) 51.2(L) 52.0 - 69.0 mm 10/28/2024 12:30 PM EDT [facility] Citrated Functional Fibrinogen W/Heparinase Maximum Amplitude(TEGEC MOLIVER) 21.6 15.0 - 34.0 mm 10/28/2024 12:30 PM EDT [facility] Citrated Rapid Teg W/Heparinase Maximum Amplitude (TEGECMOLIVER) 49.3(L) 53.0 - 69.0 mm 10/28/2024 12:30 PM EDT [facility] Citrated Kaolin w/Heparinase Percent Lysis (TEGECMOLIVER) 0.0 0.0 - 3.2 % 10/28/2024 12:30 PM EDT [facility] Whole Blood (Citrate) 10/28/2024 11:09 AM EDT 10/28/2024 11:14 AM EDT us Kemar Sahni MD LAB BLOOD ORDERABLES Final Result [facility] [address] [id number] * (ABNORMAL) CBC (10/28/2024 10:21 AM EDT) WBC 4.1 3.8 - 10.8 10E3/uL 10/28/2024 10:41 AM EDT [facility] RBC 2.30(L) 4.20 - 5.80 10E6/uL 10/28/2024 10:41 AM EDT [facility] Hemoglobin 7.1(L) 13.2 - 17.1 g/dL 10/28/2024 10:41 AM EDT [facility] Hematocrit 20.4(L) 38.5 - 50.0 % 10/28/2024 10:41 AM EDT [facility] MCV 88.5 80.0 - 100.0 fL 10/28/2024 10:41 AM EDT [facility] MCH 30.7 27.0 - 33.0 pg 10/28/2024 10:41 AM EDT [facility] MCHC 34.7 32.0 - 36.0 g/dL 10/28/2024 10:41 AM EDT [facility] RDW 18.7(H) 11.0 - 15.0 % 10/28/2024 10:41 AM EDT [facility] Platelets 37(L) 140 - 400 10E3/uL 10/28/2024 10:41 AM EDT [facility] Comment: CNV Specimen checked for clots. None detected. MPV 7.6 7.5 - 11.5 fL 10/28/2024 10:41 AM EDT [facility] Whole Blood 10/28/2024 10:2 1 AM EDT 10/28/2024 10:29 AM EDT Carlos Marks MD LAB BLOOD ORDERABLES Final Result Performing Organization Address City/[facility]/ZIP Co de Phone Number [facility] [address] [place] * POC Glucose Monitoring Device (10/28/2024 9:07 AM EDT) POC Glucose Monitoring Device 97 70 - 100 mg/dL 10/28/2024 9:08 AM EDT [facility] Blood 10/28/2024 9:07 AM EDT 10/28/2024 9:08 AM EDT Semaj Mcnair III, MD POINT OF CARE TEST ORDERABLES Final Result Performing Organization Address [facility] de Phone Number [facility] [address] * (ABNORMAL) Tacrolimus level (10/28/2024 8:20 AM EDT) Tacrolimus (LC-MS) <1.0(L) 3.0 - 15.0 ng/mL 10/28/2024 2:02 PM EDT [facility] Comment:Performed via liquid chromatography tandem mass spectrometry. Detection limit: 1 ng/mL. Individual target concentrations may vary due to target organ and time after transplant. This test has been developed and its performance characteristics determined by [facility] which is certified under [...] 10/28/2024 8:29 AM EDT Priti Geiger [facility] LAB BLOOD ORDERABLES Final Re sult Performing Organization Address [facility] Co de Phone Number [facility] [address] * (ABNORMAL) POC Glucose Monitoring Device (10/28/2024 8:10 AM EDT) POC Glucose Monitoring Device 102(H) 70 - 100 mg/dL 10/28/2024 8:11 AM EDT [facility] Blood 10/28/2024 8:10 AM EDT 10/28/2024 8:11 AM EDT Semaj Mcnair III, MD POINT OF CARE TEST ORDERABLES Final Result Performing Organization Address [facility] Co de Phone Number [facility] [address] * POC Glucose Monitoring Device (10/28/2024 6:17 AM EDT) POC Glucose Monitoring Device 100 70 - 100 mg/dL 10/28/2024 6:18 AM EDT [facility] Blood 10/28/2024 6:17 AM EDT 10/28/2024 6:18 AM EDT Semaj Mcnair III, MD POINT OF CARE TEST ORDERABLES Final Result Performing Organization Address [facility] Co de Phone Number [facility] [address] * Prepare Platelets, leukoreduced (10/28/2024 6:15 AM EDT) Product Code C6431N71 HCLL Unit Number [id number] HCLL Dispense Status Presumed Transfused_PT HCLL Blood Expiration Date [id number] HCLL Coding System [id number] HCLL Product Code C0873H91 HCLL Unit Number [id number] HCLL Dispense Status Presumed Transfused_PT HCLL Blood Expiration Date HCLL Coding System [id number] HCLL us Attending Provider Unknown BLOOD BANK PRODUCT OR DERABLES Final Result Performing Organization Address City/[facility] Co de Phone Number HCLL * Prepare Fresh Frozen Plasma (10/28/2024 6:15 AM EDT) Product Code G6647K60 HCLL Unit Number [id number] HCLL Dispense Status Released from Crossmatch_RE HCLL Blood Expiration Date HCLL Coding System [id number] HCLL Product Code B0350P02 HCLL Unit Number [id number] HCLL Dispense Status Presumed Transfused_PT HCLL Blood Expiration Date HCLL Coding System [id number] HCLL Product Code L8469U64 HCLL Unit Number [id number] HCLL Dispense Status Released from Crossmatch_RE HCLL Blood Expiration Date HCLL Coding System [id number] HCLL Product Code W8935D34 HCLL Unit Number [id number] HCLL Dispense Status Presumed Transfused_PT HCLL Blood Expiration Date HCLL Coding System [id number] HCLL Product Code W7362Z64 HCLL Unit Number [id number] HCLL Dispense Status Released from Crossmatch_RE HCLL Blood Expiration Date [id number] HCLL Coding System [id number] HCLL us Attending Provider Unknown BLOOD BANK PRODUCT OR DERABLES Final Result HCLL * Prepare RBC, leukoreduced (10/28/2024 6:15 AM EDT) Product Code S8589B95 HCLL Unit Number [id number] HCLL Dispense Status Released from Crossmatch_RE HCLL Blood Expiration Date 690231251255 HCLL Coding System PZED339 HCLL Product Code R1503Z55 HCLL Unit Number [id number] HCLL Dispense Status Presumed Transfused_PT HCLL Blood Expiration Date 109052265770 HCLL Coding System BUPE312 HCLL Product Code O6896Z87 HCLL Unit Number [id number] HCLL Dispense Status Released from Crossmatch_RE HCLL Blood Expiration Date 430019624691 HCLL Coding System SEON530 HCLL Product Code K1463W38 HCLL Unit Number [id number] HCLL Dispense Status Presumed Transfused_PT HCLL Blood Expiration Date 063246456756 HCLL Coding System [id number] HCLL Product Code N2682X13 HCLL Unit Number [id number] HCLL Dispense Status Released from Crossmatch_RE HCLL Blood Expiration Date 265913240185 HCLL Coding System [id number] HCLL us Attending Provider Unknown BLOOD BANK PRODUCT OR DERABLES Final Result Performing Organization Address [facility]/ZIP Co de Phone Number HCLL * Prepare Platelets, leukoreduced, 1 Units (10/28/2024 6:15 AM EDT) Product Code O9329K94 HCLL Unit Number [id number] HCLL Dispense Status Presumed Transfused_PT HCLL Blood Expiration Date 823385949585 HCLL Coding System [id number] HCLL Blood Bank Product us John Pina MD BLOOD BANK PRODUCT ORDERABLES F inal Result HCLL * Prepare Cryoprecipitate, 1 Units (10/28/2024 6:15 AM EDT) Product Code C4909M36 HCLL Unit Number [id number] HCLL Dispense Status Presumed Transfused_PT HCLL Blood Expiration Date HCLL Coding System XEOH707 HCLL Product Code O5891L88 HCLL Unit Number [id number] HCLL Dispense Status Presumed Transfused_PT HCLL Blood Expiration Date HCLL Coding System PXEH864 HCLL Blood Bank Product John Pina MD BLOOD BANK PRODUCT ORDERABLES F inal Result Performing Organization Address [facility] de Phone Number HCLL * Prepare Fresh Frozen Plasma, 1 Units (10/28/2024 6:15 AM EDT) Product Code V8431V16 HCLL Unit Number [id number] HCLL Dispense Status Presumed Transfused_PT HCLL Blood Expiration Date 059275037562 HCLL Coding System [id number] HCLL Blood Bank Product John Pina MD BLOOD BANK PRODUCT ORDERABLES F inal Result Performing Organization Address [facility] Phone Number HCLL * Prepare Cryoprecipitate, 1 Units (10/28/2024 6:15 AM EDT) Product Code H1657L47 HCLL Unit Number [id number] HCLL Dispense Status Presumed Transfused_PT HCLL Blood Expiration Date 717256760997 HCLL Coding System [id number] HCLL Product Code N2263K56 HCLL Unit Number [id number] HCLL Dispense Status Presumed Transfused_PT HCLL Blood Expiration Date HCLL Coding System SFAW638 HCLL Product Code F4190J41 HCLL Unit Number [id number] HCLL Dispense Status Presumed Transfused_PT HCLL Blood Expiration Date HCLL Coding System FVDX978 HCLL Product Code O7435R82 HCLL Unit Number [id number] HCLL Dispense Status Presumed Transfused_PT HCLL Blood Expiration Date HCLL Coding System TQCF265 HCLL Blood Bank Product John Pina MD BLOOD BANK PRODUCT ORDERABLES F inal Result Performing Organization Address [facility] Co de Phone Number HCLL * (ABNORMAL) POC Glucose Monitoring Device (10/28/2024 4:55 AM EDT) POC Glucose Monitoring Device 104(H) 70 - 100 mg/dL 10/28/2024 4:57 AM EDT [facility] Blood 10/28/2024 4:55 AM EDT 10/28/2024 4:57 AM EDT Semaj Mcnair III, MD POINT OF CARE TEST ORDERABLES Final Result [facility] [address] [id number], [facility] * TEG-Bypass/ECMO/Liver HN (Factor function, Platelet/Fibrin Clot Strength w/Clot Breakdown, Heparinase In All Channels) (10/28/2024 4:13 AM EDT) Citrated Kaolin Reaction Time (TEGECMOLIVER) 7.2 4.6 - 9.1 minutes 10/28/2024 5:38 AM EDT [facility] Citrated Kaolin W/Heparinase Reaction Time (TEGECMOLIVER) 7.8 4.3 - 8.3 minutes 10/28/2024 5:38 AM EDT [facility] Citrated Kaolin Maximum Amplitude (TEGECMOLIVER) 53.0 52.0 - 69.0 mm 10/28/2024 5:38 AM EDT [facility] Citrated Functional Fibrinogen W/Heparinase Maximum Amplitude(TEGEC MOLIVER) 21.4 15.0 - 34.0 mm 10/28/2024 5:38 AM EDT [facility] Citrated Rapid Teg W/Heparinase Maximum Amplitude (TEGECMOLIVER) 54.7 53.0 - 69.0 mm 10/28/2024 5:38 AM EDT [facility] Citrated Kaolin w/Heparinase Percent Lysis (TEGECMOLIVER) 0.0 0.0 - 3.2 % 10/28/2024 5:38 AM EDT [facility] Whole Blood (Citrate) 10/28/2024 4:13 AM EDT 10/28/2024 4:28 AM EDT Kemar Sahni MD LAB BLOOD ORDERABLES Final Result Performing Organization Address City/[facility] Co de Phone Number [facility] [address] * Protime-INR (10/28/2024 4:13 AM EDT) Protime 14.6 12.1 - 15.1 seconds 10/28/2024 4:53 AM EDT [facility] INR 1.1 0.9 - 1.1 10/28/2024 4:53 AM EDT [facility] Comment: RECOMMENDED THERAPEUTIC RANGES USING INR : Stable oral anticoagulant therapy: 2.0 - 3.0 Mechanical prosthetic heart valve: 2.5 - 3.5 Recurrent acute myocardial infarction: 2.5 - 3.5 Plasma 10/28/2024 4:13 AM EDT 10/28/2024 4:41 AM EDT Kemar Sahni MD LAB BLOOD ORDERABLES Final Result Performing Organization Address [facility] Co de Phone Number [facility] [address] * Magnesium (10/28/2024 4:13 AM EDT) Magnesium 2.2 1.5 - 2.5 mg/dL 10/28/2024 5:15 AM EDT [facility] Plasma 10/28/2024 4:13 AM EDT 10/28/2024 4:41 AM EDT Kemar Sahni MD LAB BLOOD ORDERABLES Final Result Performing Organization Address City/State/[facility] Co de Phone Number [facility] [address] * (ABNORMAL) Hepatic Function Panel (10/28/2024 4:13 AM EDT) Total Bilirubin 2.3(H) 0.0 - 1.5 mg/dL 10/28/2024 5:15 AM EDT [facility] Bilirubin, Direct 1.67(H) 0.00 - 0.40 mg/dL 10/28/2024 5:15 AM EDT [facility] AST 44(H) 13 - 39 U/L 10/28/2024 5:15 AM EDT [facility] ALT 101(H) 7 - 52 U/L 10/28/2024 5:15 AM EDT [facility] Alkaline Phosphatase 26(L) 36 - 125 U/L 10/28/2024 5:15 AM EDT [facility] Total Protein 4.5(L) 6.4 - 8.9 g/dL 10/28/2024 5:15 AM EDT [facility] Albumin 3.1(L) 3.5 - 5.7 g/dL 10/28/2024 5:15 AM EDT [facility] Bilirubin, Indirect 0.63 0.00 - 1.10 mg/dL 10/28/2024 5:15 AM EDT [facility] Plasma 10/28/2024 4:13 AM EDT 10/28/2024 4:41 AM EDT us Kemar Sahni MD LAB BLOOD ORDERABLES Final Result Performing Organization Address City/State/[facility] Co de Phone Number [facility] [address] * (ABNORMAL) Renal Function Panel w/EGFR (10/28/2024 4:13 AM EDT) Sodium 142 133 - 146 mmol/L 10/28/2024 5:15 AM EDT [facility] Potassium 3.5 3.5 - 5.3 mmol/L 10/28/2024 5:15 AM EDT [facility] Chloride 111(H) 98 - 110 mmol/L 10/28/2024 5:15 AM EDT [facility] CO2 22 21 - 33 mmol/L 10/28/2024 5:15 AM EDT [facility] Anion Gap 9 3 - 16 mmol/L 10/28/2024 5:15 AM EDT [facility] BUN 58(H) 7 - 25 mg/dL 10/28/2024 5:15 AM EDT [facility] Creatinine 2.24(H) 0.60 - 1.30 mg/dL 10/28/2024 5:15 AM EDT [facility] Glucose 103(H) 70 - 100 mg/dL 10/28/2024 5:15 AM EDT [facility] Calcium 9.1 8.6 - 10.3 mg/dL 10/28/2024 5:15 AM EDT [facility] Phosphorus 4.8(H) 2.1 - 4.7 mg/dL 10/28/2024 5:15 AM EDT [facility] Albumin 3.1(L) 3.5 - 5.7 g/dL 10/28/2024 5:15 AM EDT [facility] Osmolality, Calculated 310(H) 278 - 305 mOsm/kg 10/28/2024 5:15 AM EDT [facility] EGFR 37 10/28/2024 5:15 AM EDT [facility] Comment:As [...] Sahni MD LAB BLOOD ORDERABLES Final Result [facility] [address] [place] [address], [facility] * (ABNORMAL) CBC (10/28/2024 4:13 AM EDT) WBC 4.5 3.8 - 10.8 10E3/uL 10/28/2024 5:09 AM EDT [facility] RBC 2.39(L) 4.20 - 5.80 10E6/uL 10/28/2024 5:09 AM EDT [facility] Hemoglobin 7.3(L) 13.2 - 17.1 g/dL 10/28/2024 5:09 AM EDT [facility] Hematocrit 21.0(L) 38.5 - 50.0 % 10/28/2024 5:09 AM EDT [facility] MCV 87.8 80.0 - 100.0 fL 10/28/2024 5:09 AM EDT [facility] MCH 30.5 27.0 - 33.0 pg 10/28/2024 5:09 AM EDT [facility] MCHC 34.7 32.0 - 36.0 g/dL 10/28/2024 5:09 AM EDT [facility] RDW 18.7(H) 11.0 - 15.0 % 10/28/2024 5:09 AM EDT [facility] Platelets 38(L) 140 - 400 10E3/uL 10/28/2024 5:09 AM EDT [facility] Comment: CNV Specimen checked for clots. None detected. MPV 7.6 7.5 - 11.5 fL 10/28/2024 5:09 AM EDT [facility] Whole Blood 10/28/2024 4:13 AM EDT 10/28/2024 4:41 AM EDT us Kemar Sahni MD LAB BLOOD ORDERABLES Final Result [facility] [address] [place] [address], [facility] * (ABNORMAL) POC Glucose Monitoring Device (10/28/2024 4:04 AM EDT) POC Glucose Monitoring Device 103(H) 70 - 100 mg/dL 10/28/2024 4:05 AM EDT [facility] Blood 10/28/2024 4:04 AM EDT 10/28/2024 4:05 AM EDT Semaj Mcnair III, MD POINT OF CARE TEST ORDERABLES Final Result Performing Organization Address [facility] Co de Phone Number [facility] [address] * (ABNORMAL) POC Glucose Monitoring Device (10/28/2024 3:00 AM EDT) POC Glucose Monitoring Device 106(H) 70 - 100 mg/dL 10/28/2024 3:01 AM EDT [facility] Blood 10/28/2024 3:00 AM EDT 10/28/2024 3:01 AM EDT Smeaj Mcnair III, MD POINT OF CARE TEST ORDERABLES Final Result Performing Organization Address [facility] Co de Phone Number [facility] [address] * (ABNORMAL) POC Glucose Monitoring Device (10/28/2024 2:32 AM EDT) POC Glucose Monitoring Device 109(H) 70 - 100 mg/dL 10/28/2024 2:33 AM EDT [facility] Blood 10/28/2024 2:32 AM EDT 10/28/2024 2:33 AM EDT Semaj Mcnair III, MD POINT OF CARE TEST ORDERABLES Final Result Performing Organization Address City/[facility] Co de Phone Number [facility] [address] * (ABNORMAL) POC Glucose Monitoring Device (10/28/2024 2:14 AM EDT) POC Glucose Monitoring Device 115(H) 70 - 100 mg/dL 10/28/2024 2:15 AM EDT [facility] Blood 10/28/2024 2:14 AM EDT 10/28/2024 2:15 AM EDT Semaj Mcnair III, MD POINT OF CARE TEST ORDERABLES Final Result Performing Organization Address City/[facility] Co de Phone Number [facility] [address] * (ABNORMAL) POC Glucose Monitoring Device (10/28/2024 2:03 AM EDT) POC Glucose Monitoring Device 101(H) 70 - 100 mg/dL 10/28/2024 2:04 AM EDT [facility] Blood 10/28/2024 2:03 AM EDT 10/28/2024 2:04 AM EDT Semaj Mcnair III, MD POINT OF CARE TEST ORDERABLES Final Result Performing Organization Address [facility] Co de Phone Number [facility] [address] * Transfuse RBC Transfusion Rate: Per dept routine (10/28/2024 1:51 AM EDT) John Moreno MD NURSING TREATMENT ORDERABLES - BLOOD ADMIN Final Result Performing Organization Address City/[facility]/ZIP Co de Phone Number EXTERNAL * Transfuse RBC Transfusion Rate: Per dept routine, 1 Units (10/28/2024 1:51 AM EDT) John Moreno MD NURSING TREATMENT ORDERABLES - BLOOD ADMIN Final Result Performing Organization Address City/[facility] Co de Phone Number EXTERNAL * (ABNORMAL) TEG-Bypass/ECMO/Liver HN (Factor function, Platelet/Fibrin Clot Strength w/Clot Breakdown, Heparinase In All Channels) (10/28/2024 12:05 AM EDT) Citrated Kaolin Reaction Time (TEGECMOLIVER) 7.5 4.6 - 9.1 minutes 10/28/2024 1:22 AM EDT [facility] Citrated Kaolin W/Heparinase Reaction Time (TEGECMOLIVER) 7.7 4.3 - 8.3 minutes 10/28/2024 1:22 AM EDT [facility] Citrated Kaolin Maximum Amplitude (TEGECMOLIVER) 54.4 52.0 - 69.0 mm 10/28/2024 1:22 AM EDT [facility] Citrated Functional Fibrinogen W/Heparinase Maximum Amplitude(TEGEC MOLIVER) 20.4 15.0 - 34.0 mm 10/28/2024 1:22 AM EDT [facility] Citrated Rapid Teg W/Heparinase Maximum Amplitude (TEGECMOLIVER) 51.0(L) 53.0 - 69.0 mm 10/28/2024 1:22 AM EDT [facility] Citrated Kaolin w/Heparinase Percent Lysis (TEGECMOLIVER) 0.0 0.0 - 3.2 % 10/28/2024 1:22 AM EDT [facility] Whole Blood (Citrate) 10/28/2024 12:05 AM EDT 10/28/2024 12:09 AM EDT Kemar Sahni MD LAB BLOOD ORDERABLES Final Result Performing Organization Address [facility]/ZIP Co de Phone Number [facility] [address] * Magnesium (10/28/2024 12:05 AM EDT) Pathologist [facility] Magnesium 2.2 1.5 - 2.5 mg/dL 10/28/2024 1:59 AM EDT [facility] Plasma 10/28/2024 12:0 5 AM EDT 10/28/2024 12:11 AM EDT Kemar Sahni MD LAB BLOOD ORDERABLES Final Result [facility] [address] * (ABNORMAL) Renal Function Panel w/EGFR (10/28/2024 12:05 AM EDT) Sodium 144 133 - 146 mmol/L 10/28/2024 1:59 AM EDT [facility] Potassium 3.4(L) 3.5 - 5.3 mmol/L 10/28/2024 1:59 AM EDT [facility] Chloride 112(H) 98 - 110 mmol/L 10/28/2024 1:59 AM EDT [facility] CO2 19(L) 21 - 33 mmol/L 10/28/2024 1:59 AM EDT [facility] Anion Gap 13 3 - 16 mmol/L 10/28/2024 1:59 AM EDT [facility] BUN 59(H) 7 - 25 mg/dL 10/28/2024 1:59 AM EDT [facility] Creatinine 2.42(H) 0.60 - 1.30 mg/dL 10/28/2024 1:59 AM EDT [facility] Glucose 118(H) 70 - 100 mg/dL 10/28/2024 1:59 AM EDT [facility] Calcium 9.0 8.6 - 10.3 mg/dL 10/28/2024 1:59 AM EDT [facility] Phosphorus 5.3(H) 2.1 - 4.7 mg/dL 10/28/2024 1:59 AM EDT [facility] Albumin 3.1(L) 3.5 - 5.7 g/dL 10/28/2024 1:59 AM EDT [facility] Osmolality, Calculated 316(H) 278 - 305 mOsm/kg 10/28/2024 1:59 AM EDT [facility] EGFR 34 10/28/2024 1:59 AM EDT [facility] Comment:As [...] BLOOD ORDERABLES Final Result Performing Organization Address City/State/[facility] Co de Phone Number [facility] [address] [place] [address], [facility] * (ABNORMAL) Differential (10/28/2024 12:05 AM EDT) Neutrophils Relative 88.6(H) 40.0 - 80.0 % 10/28/2024 12:41 AM EDT [facility] Lymphocytes Relative 2.5(L) 15.0 - 45.0 % 10/28/2024 12:41 AM EDT [facility] Monocytes Relative 6.1 0.0 - 12.0 % 10/28/2024 12:41 AM EDT [facility] Eosinophils Relative 2.4 0.0 - 8.0 % 10/28/2024 12:41 AM EDT [facility] Basophils Relative 0.4 0.0 - 1.0 % 10/28/2024 12:41 AM EDT [facility] nRBC 0 0 - 0 /100 WBC 10/28/2024 12:41 AM EDT [facility] Neutrophils Absolute 4,341 1,520 - 8,640 /uL 10/28/2024 12:41 AM EDT [facility] Lymphocytes Absolute 123(L) 570 - 4,860 /uL 10/28/2024 12:41 AM EDT [facility] Monocytes Absolute 299 0 - 1,296 /uL 10/28/2024 12:41 AM EDT [facility] Eosinophils Absolute 118 0 - 864 /uL 10/28/2024 12:41 AM EDT [facility] Basophils Absolute 20 0 - 108 /uL 10/28/2024 12:41 AM EDT [facility] Whole Blood 10/28/2024 12:0 5 AM EDT 10/28/2024 12:11 AM EDT Kemar Sahni MD LAB BLOOD ORDERABLES Final Result [facility] [address] [place] [facility]. [address] * (ABNORMAL) CBC (10/28/2024 12:05 AM EDT) WBC 4.9 3.8 - 10.8 10E3/uL 10/28/2024 12:41 AM EDT [facility] RBC 2.18(L) 4.20 - 5.80 10E6/uL 10/28/2024 12:41 AM EDT [facility] Hemoglobin 6.7(L) 13.2 - 17.1 g/dL 10/28/2024 12:41 AM EDT ACCESS [facility] Hematocrit 19.2(L) 38.5 - 50.0 % 10/28/2024 12:41 AM EDT [facility] MCV 87.8 80.0 - 100.0 fL 10/28/2024 12:41 AM EDT [facility] MCH 30.6 27.0 - 33.0 pg 10/28/2024 12:41 AM EDT [facility] MCHC 34.8 32.0 - 36.0 g/dL 10/28/2024 12:41 AM EDT [facility] RDW 19.6(H) 11.0 - 15.0 % 10/28/2024 12:41 AM EDT [facility] Platelets 45(L) 140 - 400 10E3/uL 10/28/2024 12:41 AM EDT [facility] Comment: CNV Specimen checked for clots. None detected. MPV 7.8 7.5 - 11.5 fL 10/28/2024 12:41 AM EDT [facility] Whole Blood 10/28/2024 12:0 5 AM EDT 10/28/2024 12:11 AM EDT us Kemar Sahni MD LAB BLOOD ORDERABLES Final Result [facility] [address] [facility]. [address] * (ABNORMAL) POC Glucose Monitoring Device (10/28/2024 12:03 AM EDT) POC Glucose Monitoring Device 122(H) 70 - 100 mg/dL 10/28/2024 12:04 AM EDT [facility] Blood 10/28/2024 12:0 3 AM EDT 10/28/2024 12:04 AM EDT us Semaj Mcnair III, MD POINT OF CARE TEST ORDERABLES Final Result Performing Organization Address City/[facility]/ZIP Co de Phone Number [facility] [address] [place] [address]. [address] * (ABNORMAL) POC Glucose Monitoring Device (10/27/2024 10:03 PM EDT) POC Glucose Monitoring Device 127(H) 70 - 100 mg/dL 10/27/2024 10:03 PM EDT [facility] Blood 10/27/2024 10:0 3 PM EDT 10/27/2024 10:03 PM EDT us Semaj Mcnair III, MD POINT OF CARE TEST ORDERABLES Final Result Performing Organization Address [facility] Co de Phone Number [address] * (ABNORMAL) POC Glucose Monitoring Device (10/27/2024 8:06 PM EDT) POC Glucose Monitoring Device 128(H) 70 - 100 mg/dL 10/27/2024 8:45 PM EDT [facility] Blood 10/27/2024 8:06 PM EDT 10/27/2024 8:45 PM EDT us Semaj Mcnair III, MD POINT OF CARE TEST ORDERABLES Final Result Performing Organization Address City/[facility] Co de Phone Number [facility] [address] [place] [address] * (ABNORMAL) POC Glucose Monitoring Device (10/27/2024 6:00 PM EDT) POC Glucose Monitoring Device 128(H) 70 - 100 mg/dL 10/27/2024 6:00 PM EDT [facility] Blood 10/27/2024 6:00 PM EDT 10/27/2024 6:00 PM EDT Semaj Mcnair III, MD POINT OF CARE TEST ORDERABLES Final Result Performing Organization Address City/[facility]/ZIP Co de Phone Number [facility] [address] * Lactic Acid, STAT (10/27/2024 5:41 PM EDT) Pathologist [facility] Lactate 0.5 0.5 - 2.2 mmol/L 10/27/2024 6:28 PM EDT [facility] Plasma 10/27/2024 5:41 PM EDT 10/27/2024 5:49 PM EDT Narrative [facility] - 10/27/2024 6:28 PM EDT Redraw John Moreno MD LAB BLOOD ORDERABLES Final R esult Performing Organization Address City/[facility]/ZIP Co de Phone Number [facility] [address] * (ABNORMAL) Hepatic Function Panel, STAT (10/27/2024 5:13 PM EDT) Pathologist [facility] Total Bilirubin 1.7(H) 0.0 - 1.5 mg/dL 10/27/2024 5:50 PM EDT [facility] Bilirubin, Direct 1.17(H) 0.00 - 0.40 mg/dL 10/27/2024 5:50 PM EDT [facility] AST 60(H) 13 - 39 U/L 10/27/2024 5:50 PM EDT [facility] ALT 134(H) 7 - 52 U/L 10/27/2024 5:50 PM EDT [facility] Alkaline Phosphatase 27(L) 36 - 125 U/L 10/27/2024 5:50 PM EDT [facility] Total Protein 4.1(L) 6.4 - 8.9 g/dL 10/27/2024 5:50 PM EDT [facility] Albumin 2.9(L) 3.5 - 5.7 g/dL 10/27/2024 5:50 PM EDT [facility] Bilirubin, Indirect 0.53 0.00 - 1.10 mg/dL 10/27/2024 5:50 PM EDT [facility] Plasma 10/27/2024 5:13 PM EDT 10/27/2024 5:23 PM EDT us Shay Plata MD LAB BLOOD ORDERABLES Final Result [facility] [address] [place] [address], [facility] * (ABNORMAL) TEG-Bypass/ECMO/Liver HN (Factor function, Platelet/Fibrin Clot Strength w/Clot Breakdown, Heparinase In All Channels) (10/27/2024 5:13 PM EDT) [facility] Citrated Kaolin Reaction Time (TEGECMOLIVER) 8.0 4.6 - 9.1 minutes 10/27/2024 6:56 PM EDT [facility] Citrated Kaolin W/Heparinase Reaction Time (TEGECMOLIVER) 6.8 4.3 - 8.3 minutes 10/27/2024 6:56 PM EDT [facility] Citrated Kaolin Maximum Amplitude (TEGECMOLIVER) 55.4 52.0 - 69.0 mm 10/27/2024 6:56 PM EDT [facility] Citrated Functional Fibrinogen W/Heparinase Maximum Amplitude(TEGEC MOLIVER) 22.9 15.0 - 34.0 mm 10/27/2024 6:56 PM EDT [facility] Citrated Rapid Teg W/Heparinase Maximum Amplitude (TEGECMOLIVER) 50.8(L) 53.0 - 69.0 mm 10/27/2024 6:56 PM EDT [facility] Citrated Kaolin w/Heparinase Percent Lysis (TEGECMOLIVER) 0.1 0.0 - 3.2 % 10/27/2024 6:56 PM EDT [facility] Whole Blood (Citrate) 10/27/2024 5:13 PM EDT 10/27/2024 5:20 PM EDT Kemar Sahni MD LAB BLOOD ORDERABLES Final Result [facility] [address] [place]. [address] * (ABNORMAL) Protime-INR (10/27/2024 5:13 PM EDT) Protime 15.2(H) 12.1 - 15.1 seconds 10/27/2024 5:40 PM EDT [facility] INR 1.1 0.9 - 1.1 10/27/2024 5:40 PM EDT [facility] Comment: RECOMMENDED THERAPEUTIC RANGES USING INR : Stable oral anticoagulant therapy: 2.0 - 3.0 Mechanical prosthetic heart valve: 2.5 - 3.5 Recurrent acute myocardial infarction: 2.5 - 3.5 Plasma 10/27/2024 5:13 PM EDT 10/27/2024 5:23 PM EDT Kemar Sahni MD LAB BLOOD ORDERABLES Final Result Performing Organization Address [facility] Co de Phone Number [facility] [address] [place]. [address] * Magnesium (10/27/2024 5:13 PM EDT) Magnesium 2.4 1.5 - 2.5 mg/dL 10/27/2024 5:53 PM EDT [facility] Plasma 10/27/2024 5:13 PM EDT 10/27/2024 5:23 PM EDT Kemar Sahni MD LAB BLOOD ORDERABLES Final Result Performing Organization Address City/[facility]/ZIP Co de Phone Number [facility] [address] [place]. [address] * (ABNORMAL) Hepatic Function Panel (10/27/2024 5:13 PM EDT) Total Bilirubin 1.7(H) 0.0 - 1.5 mg/dL 10/27/2024 5:53 PM EDT [facility] Bilirubin, Direct 1.10(H) 0.00 - 0.40 mg/dL 10/27/2024 5:53 PM EDT [facility] AST 62(H) 13 - 39 U/L 10/27/2024 5:53 PM EDT [facility] ALT 134(H) 7 - 52 U/L 10/27/2024 5:53 PM EDT [facility] Alkaline Phosphatase 27(L) 36 - 125 U/L 10/27/2024 5:53 PM EDT [facility] Total Protein 4.1(L) 6.4 - 8.9 g/dL 10/27/2024 5:53 PM EDT [facility] Albumin 2.9(L) 3.5 - 5.7 g/dL 10/27/2024 5:53 PM EDT [facility] Bilirubin, Indirect 0.60 0.00 - 1.10 mg/dL 10/27/2024 5:53 PM EDT [facility] Plasma 10/27/2024 5:13 PM EDT 10/27/2024 5:23 PM EDT Kemar Sahni MD LAB BLOOD ORDERABLES Final Result Performing Organization Address City/State/[facility] Co de Phone Number [facility] [address] * (ABNORMAL) Renal Function Panel w/EGFR (10/27/2024 5:13 PM EDT) Sodium 142 133 - 146 mmol/L 10/27/2024 5:53 PM EDT [facility] Potassium 3.4(L) 3.5 - 5.3 mmol/L 10/27/2024 5:53 PM EDT [facility] Chloride 109 98 - 110 mmol/L 10/27/2024 5:53 PM EDT [facility] CO2 22 21 - 33 mmol/L 10/27/2024 5:53 PM EDT [facility] Anion Gap 11 3 - 16 mmol/L 10/27/2024 5:53 PM EDT [facility] BUN 61(H) 7 - 25 mg/dL 10/27/2024 5:53 PM EDT [facility] Creatinine 2.42(H) 0.60 - 1.30 mg/dL 10/27/2024 5:53 PM EDT [facility] Glucose 125(H) 70 - 100 mg/dL 10/27/2024 5:53 PM EDT [facility] Calcium 8.8 8.6 - 10.3 mg/dL 10/27/2024 5:53 PM EDT [facility] Phosphorus 5.7(H) 2.1 - 4.7 mg/dL 10/27/2024 5:53 PM EDT [facility] Albumin 2.9(L) 3.5 - 5.7 g/dL 10/27/2024 5:53 PM EDT [facility] Osmolality, Calculated 313(H) 278 - 305 mOsm/kg 10/27/2024 5:53 PM EDT [facility] EGFR 34 10/27/2024 5:53 PM EDT [facility] Comment:As [...] Sahni MD LAB BLOOD ORDERABLES Final Result [facility] [address] * (ABNORMAL) CBC (10/27/2024 5:13 PM EDT) Pathologist [facility] WBC 4.9 3.8 - 10.8 10E3/uL 10/27/2024 6:14 PM EDT [facility] RBC 2.44(L) 4.20 - 5.80 10E6/uL 10/27/2024 6:14 PM EDT [facility] Hemoglobin 7.4(L) 13.2 - 17.1 g/dL 10/27/2024 6:14 PM EDT [facility] Hematocrit 21.4(L) 38.5 - 50.0 % 10/27/2024 6:14 PM EDT [facility] MCV 87.6 80.0 - 100.0 fL 10/27/2024 6:14 PM EDT [facility] MCH 30.3 27.0 - 33.0 pg 10/27/2024 6:14 PM EDT [facility] MCHC 34.6 32.0 - 36.0 g/dL 10/27/2024 6:14 PM EDT [facility] RDW 19.6(H) 11.0 - 15.0 % 10/27/2024 6:14 PM EDT [facility] Platelets 47(L) 140 - 400 10E3/uL 10/27/2024 6:14 PM EDT [facility] Comment: CNV Specimen checked for clots. None detected. MPV 8.1 7.5 - 11.5 fL 10/27/2024 6:14 PM EDT [facility] Whole Blood 10/27/2024 5:13 PM EDT 10/27/2024 5:23 PM EDT us Kemar Sahni MD LAB BLOOD ORDERABLES Final Result [facility] [address] * (ABNORMAL) POC Glucose Monitoring Device (10/27/2024 3:57 PM EDT) [facility] POC Glucose Monitoring Device 131(H) 70 - 100 mg/dL 10/27/2024 3:58 PM EDT [facility] Blood 10/27/2024 3:57 PM EDT 10/27/2024 3:58 PM EDT Semaj Mcnair III, MD POINT OF CARE TEST ORDERABLES Final Result [facility] [address] [place] [address], [facility] * (ABNORMAL) CBC, STAT (10/27/2024 2:40 PM EDT) WBC 5.8 3.8 - 10.8 10E3/uL 10/27/2024 2:54 PM EDT [facility] RBC 2.43(L) 4.20 - 5.80 10E6/uL 10/27/2024 2:54 PM EDT [facility] Hemoglobin 7.5(L) 13.2 - 17.1 g/dL 10/27/2024 2:54 PM EDT [facility] Hematocrit 21.5(L) 38.5 - 50.0 % 10/27/2024 2:54 PM EDT [facility] MCV 88.2 80.0 - 100.0 fL 10/27/2024 2:54 PM EDT [facility] MCH 30.7 27.0 - 33.0 pg 10/27/2024 2:54 PM EDT [facility] MCHC 34.8 32.0 - 36.0 g/dL 10/27/2024 2:54 PM EDT [facility] RDW 19.1(H) 11.0 - 15.0 % 10/27/2024 2:54 PM EDT [facility] Platelets 50(L) 140 - 400 10E3/uL 10/27/2024 2:54 PM EDT [facility] MPV 7.5 7.5 - 11.5 fL 10/27/2024 2:54 PM EDT [facility] Whole Blood 10/27/2024 2:40 PM EDT 10/27/2024 2:44 PM EDT us John Moreno MD LAB BLOOD ORDERABLES Final R esult [facility] [address] [place] [id number], [facility] * (ABNORMAL) Blood Gas, Arterial, STAT (10/27/2024 2:40 PM EDT) O2 Sat, Arterial 98 10/27/2024 2:46 PM EDT [facility] FIO2 RA 10/27/2024 2:46 PM EDT [facility] pH, Arterial 7.37 7.35 - 7.45 10/27/2024 2:46 PM EDT [facility] pCO2, Arterial 35 35 - 45 mm Hg 10/27/2024 2:46 PM EDT [facility] pO2, Arterial 92 80 - 100 mm Hg 10/27/2024 2:46 PM EDT [facility] HCO3, Arterial 21(L) 22 - 26 mmol/L 10/27/2024 2:46 PM EDT [facility] CO2 Content,Arteri al 21(L) 23 - 27 mmol/L 10/27/2024 2:46 PM EDT [facility] Base Excess, Arterial -4.6(L) -2.0 - 3.0 mmol/L 10/27/2024 2:46 PM EDT [facility] %HBO2, Arterial 95.4 95.0 - 98.0 % 10/27/2024 2:46 PM EDT [facility] Carboxyhemoglo bin, Arterial 1.6 % 10/27/2024 2:46 PM EDT [facility] Comment: CARBOXYHEMOGLOBIN (CO) REFERENCE RANGES: Non-Smokers: <2 % Smokers: <8 % TOXIC: >20 % Methemoglobin, Arterial 1.0 0.0 - 1.5 % 10/27/2024 2:46 PM EDT [facility] Reduced hemoglobin, Arterial 2.1 0.0 - 5.0 % 10/27/2024 2:46 PM EDT [facility] Blood, Arterial 10/27/2024 2 :40 PM EDT 10/27/2024 2:44 PM EDT Narrative [facility] - 10/27/2024 2:46 PM EDT Post extubation us John Moreno MD LAB BLOOD ORDERABLES Final R esult [facility] [address] [facility]. [address] * (ABNORMAL) POC Glucose Monitoring Device (10/27/2024 2:06 PM EDT) [facility] POC Glucose Monitoring Device 134(H) 70 - 100 mg/dL 10/27/2024 2:06 PM EDT [facility] Blood 10/27/2024 2:06 PM EDT 10/27/2024 2:06 PM EDT Semaj Mcnair III, MD POINT OF CARE TEST ORDERABLES Final Result Performing Organization Address City/[facility]/ZIP Co de Phone Number [facility] [address] [place] [facility]. [address] * (ABNORMAL) Blood gas, arterial (10/27/2024 12:35 PM EDT) [facility] Signature O2 Sat, Arterial 99 10/27/2024 12:46 PM EDT [facility] FIO2 SBT 30% 10/27/2024 12:46 PM EDT [facility] pH, Arterial 7.35 7.35 - 7.45 10/27/2024 12:46 PM EDT [facility] pCO2, Arterial 37 35 - 45 mm Hg 10/27/2024 12:46 PM EDT [facility] pO2, Arterial 182(H) 80 - 100 mm Hg 10/27/2024 12:46 PM EDT [facility] HCO3, Arterial 21(L) 22 - 26 mmol/L 10/27/2024 12:46 PM EDT [facility] CO2 Content,Arteri al 22(L) 23 - 27 mmol/L 10/27/2024 12:46 PM EDT [facility] Base Excess, Arterial -4.8(L) -2.0 - 3.0 mmol/L 10/27/2024 12:46 PM EDT [facility] %HBO2, Arterial 96.3 95.0 - 98.0 % 10/27/2024 12:46 PM EDT [facility] Carboxyhemoglo bin, Arterial 1.7 % 10/27/2024 12:46 PM EDT [facility] Comment: CARBOXYHEMOGLOBIN (CO) REFERENCE RANGES: Non-Smokers: <2 % Smokers: <8 % TOXIC: >20 % Methemoglobin, Arterial 1.4 0.0 - 1.5 % 10/27/2024 12:46 PM EDT [facility] Reduced hemoglobin, Arterial 0.6 0.0 - 5.0 % 10/27/2024 12:46 PM EDT [facility] Blood, Arterial 10/27/2024 1 2:35 PM EDT 10/27/2024 12:42 PM EDT Narrative [facility] - 10/27/2024 12:46 PM EDT Please obtain post SBT us Shay Sifuentes MD LAB BLOOD ORDERABLES Final Resu lt Performing Organization Address City/State/[facility] Co de Phone Number [facility] [address] * (ABNORMAL) TEG-Bypass/ECMO/Liver HN (Factor function, Platelet/Fibrin Clot Strength w/Clot Breakdown, Heparinase In All Channels) (10/27/2024 12:07 PM EDT) [facility] Citrated Kaolin Reaction Time (TEGECMOLIVER) 7.9 4.6 - 9.1 minutes 10/27/2024 1:24 PM EDT [facility] Citrated Kaolin W/Heparinase Reaction Time (TEGECMOLIVER) 8.3 4.3 - 8.3 minutes 10/27/2024 1:24 PM EDT [facility] Citrated Kaolin Maximum Amplitude (TEGECMOLIVER) 52.0 52.0 - 69.0 mm 10/27/2024 1:24 PM EDT [facility] Citrated Functional Fibrinogen W/Heparinase Maximum Amplitude(TEGEC MOLIVER) 20.1 15.0 - 34.0 mm 10/27/2024 1:24 PM EDT [facility] Citrated Rapid Teg W/Heparinase Maximum Amplitude (TEGECMOLIVER) 49.4(L) 53.0 - 69.0 mm 10/27/2024 1:24 PM EDT [facility] Citrated Kaolin w/Heparinase Percent Lysis (TEGECMOLIVER) 0.0 0.0 - 3.2 % 10/27/2024 1:24 PM EDT [facility] Whole Blood (Citrate) 10/27/2024 12:07 PM EDT 10/27/2024 12:09 PM EDT Kemar Sahni MD LAB BLOOD ORDERABLES Final Result Performing Organization Address City/[facility]/ZIP Co de Phone Number [facility] [address] [place] [address] * (ABNORMAL) POC Glucose Monitoring Device (10/27/2024 12:01 PM EDT) POC Glucose Monitoring Device 121(H) 70 - 100 mg/dL 10/27/2024 12:02 PM EDT [facility] Blood 10/27/2024 12:0 1 PM EDT 10/27/2024 12:01 PM EDT Semaj Mcnair III, MD POINT OF CARE TEST ORDERABLES Final Result Performing Organization Address [facility] Co de Phone Number [address] * (ABNORMAL) POC Glucose Monitoring Device (10/27/2024 10:59 AM EDT) POC Glucose Monitoring Device 126(H) 70 - 100 mg/dL 10/27/2024 11:10 AM EDT [facility] Blood 10/27/2024 10:5 9 AM EDT 10/27/2024 11:10 AM EDT Semaj Mcnair III, MD POINT OF CARE TEST ORDERABLES Final Result Performing Organization Address City/[facility] Co de Phone Number [facility] [address] [place] [address] * ECG 12 lead (MUSE) (10/27/2024 10:17 AM EDT) 10/27/2024 10:1 7 AM EDT Narrative MUSE - 10/27/2024 2:51 PM EDT Ventricular Rate: 91 BPM Atrial Rate: 91 BPM P-R Interval: 168 ms QRS Duration: 90 ms QT: 274 ms QTc: 337 ms P [place]: 60 degrees R [place]: -30 degrees T [place]: -15 degrees Diagnosis Line: NORMAL SINUS RHYTHM ^ LEFT AXIS DEVIATION, LEFT ANTERIOR HEMIBLOCK ^ NONSPECIFIC T WAVE CHANGE ^ ABNORMAL ECG ^ ^ Confirmed by MD ROLLY, [facility] ([id number]) on 10/27/2024 2:51:52 PM Shay Sifuentes MD ECG ORDERABLES Final Result MUSE * (ABNORMAL) POC Glucose Monitoring Device (10/27/2024 10:00 AM EDT) [facility] POC Glucose Monitoring Device 121(H) 70 - 100 mg/dL 10/27/2024 10:01 AM EDT [facility] Blood 10/27/2024 10:0 0 AM EDT 10/27/2024 10:01 AM EDT Semaj Mcnair III, MD POINT OF CARE TEST ORDERABLES Final Result [facility] [address] * US Renal Transplant (10/27/2024 9:51 [...] 10:28 AM EDT us Sveta Judge MD [facility] US ORDERABLES Final Result * US Duplex [id number] Comp (10/27/2024 9:51 AM EDT) Anatomical Region [...] EXAM: US ABDOMEN LIMITED EXAM: US DUPLEX [id number] COMPLETE INDICATION: Post-op liver transplant COMPARISON: None [...] absent.. Pancreas: Obscured by overlying bowel gas. [place] right kidney: 12.5 cm in length. Normal [...] EXAM: US ABDOMEN LIMITED EXAM: US DUPLEX [id number] COMPLETE INDICATION: Post-op liver transplant COMPARISON: None [...] absent.. Pancreas: Obscured by overlying bowel gas. [place] right kidney: 12.5 cm in length. Normal [...] EXAM: US ABDOMEN LIMITED EXAM: US DUPLEX [id number] COMPLETE INDICATION: Post-op liver transplant COMPARISON: None [...] absent.. Pancreas: Obscured by overlying bowel gas. [place] right kidney: 12.5 cm in length. Normal [...] EXAM: US ABDOMEN LIMITED EXAM: US DUPLEX [id number] COMPLETE INDICATION: Post-op liver transplant COMPARISON: None [...] absent.. Pancreas: Obscured by overlying bowel gas. [place] right kidney: 12.5 cm in length. Normal [...] - 100 mg/dL 10/27/2024 9:06 AM EDT [facility] Blood 10/27/2024 9:05 AM EDT 10/27/2024 9:06 AM EDT us Semaj Mcnair III, MD POINT OF CARE TEST ORDERABLES Final Result [facility] [address] * X-ray Portable Chest (10/27/2024 8:58 [...] - 15.1 seconds 10/27/2024 8:35 AM EDT [facility] INR 1.2(H) 0.9 - 1.1 10/27/2024 8:35 AM EDT [facility] Comment: RECOMMENDED THERAPEUTIC RANGES USING INR : Stable oral anticoagulant therapy: 2.0 - 3.0 Mechanical prosthetic heart valve: 2.5 - 3.5 Recurrent acute myocardial infarction: 2.5 - 3.5 Plasma 10/27/2024 8:16 AM EDT 10/27/2024 8:20 AM EDT John Moreno MD LAB BLOOD ORDERABLES Final R esult Performing Organization Address City/[facility]/ZIP Co de Phone Number [facility] [address] * Magnesium (10/27/2024 8:00 AM EDT) Magnesium 1.8 1.5 - 2.5 mg/dL 10/27/2024 10:50 AM EDT [facility] Plasma 10/27/2024 8:00 AM EDT 10/27/2024 10:31 AM EDT Kemar Sahni MD LAB BLOOD ORDERABLES Final Result Performing Organization Address [facility] de Phone Number [facility] [address] * (ABNORMAL) Renal Function Panel w/EGFR (10/27/2024 8:00 AM EDT) Sodium 142 133 - 146 mmol/L 10/27/2024 10:18 AM EDT [facility] Potassium 3.0(L) 3.5 - 5.3 mmol/L 10/27/2024 10:18 AM EDT [facility] Chloride 109 98 - 110 mmol/L 10/27/2024 10:18 AM EDT [facility] CO2 21 21 - 33 mmol/L 10/27/2024 10:18 AM EDT [facility] Anion Gap 12 3 - 16 mmol/L 10/27/2024 10:18 AM EDT [facility] BUN 59(H) 7 - 25 mg/dL 10/27/2024 10:18 AM EDT [facility] Creatinine 2.54(H) 0.60 - 1.30 mg/dL 10/27/2024 10:18 AM EDT [facility] Glucose 111(H) 70 - 100 mg/dL 10/27/2024 10:18 AM EDT [facility] Calcium 9.1 8.6 - 10.3 mg/dL 10/27/2024 10:18 AM EDT [facility] Phosphorus 5.5(H) 2.1 - 4.7 mg/dL 10/27/2024 10:18 AM EDT [facility] Albumin 3.0(L) 3.5 - 5.7 g/dL 10/27/2024 10:18 AM EDT [facility] Osmolality, Calculated 311(H) 278 - 305 mOsm/kg 10/27/2024 10:18 AM EDT [facility] EGFR 32 10/27/2024 10:18 AM EDT [facility] Comment:As [...] Sahni MD LAB BLOOD ORDERABLES Final Result [facility] [address] [facility] [place] [address], [facility] * (ABNORMAL) Hepatic Function Panel, STAT (10/27/2024 8:00 AM EDT) Total Bilirubin 1.3 0.0 - 1.5 mg/dL 10/27/2024 8:51 AM EDT [facility] Bilirubin, Direct 0.93(H) 0.00 - 0.40 mg/dL 10/27/2024 8:51 AM EDT [facility] AST 88(H) 13 - 39 U/L 10/27/2024 8:51 AM EDT [facility] ALT 149(H) 7 - 52 U/L 10/27/2024 8:51 AM EDT [facility] Alkaline Phosphatase 26(L) 36 - 125 U/L 10/27/2024 8:51 AM EDT [facility] Total Protein 4.0(L) 6.4 - 8.9 g/dL 10/27/2024 8:51 AM EDT [facility] Albumin 3.0(L) 3.5 - 5.7 g/dL 10/27/2024 8:51 AM EDT [facility] Bilirubin, Indirect 0.37 0.00 - 1.10 mg/dL 10/27/2024 8:51 AM EDT [facility] Plasma 10/27/2024 8:00 AM EDT 10/27/2024 8:20 AM EDT us Semaj Mcnair III, MD LAB BLOOD ORDERABLE S Final Result Performing Organization Address [facility] Co de Phone Number [facility] [address] * (ABNORMAL) Lactic Acid, STAT (10/27/2024 8:00 AM EDT) Lactate 0.4(L) 0.5 - 2.2 mmol/L 10/27/2024 8:43 AM EDT [facility] Plasma 10/27/2024 8:00 AM EDT 10/27/2024 8:20 AM EDT us Semaj Mcnair III, MD LAB BLOOD ORDERABLE S Final Result Performing Organization Address City/[facility]/ZIP Co de Phone Number [facility] [address] * (ABNORMAL) Blood Gas, Arterial, STAT (10/27/2024 8:00 AM EDT) O2 Sat, Arterial 100 10/27/2024 8:23 AM EDT [facility] pH, Arterial 7.36 7.35 - 7.45 10/27/2024 8:23 AM EDT [facility] pCO2, Arterial 37 35 - 45 mm Hg 10/27/2024 8:23 AM EDT [facility] pO2, Arterial 245(H) 80 - 100 mm Hg 10/27/2024 8:23 AM EDT [facility] HCO3, Arterial 22 22 - 26 mmol/L 10/27/2024 8:23 AM EDT [facility] CO2 Content,Arteri al 22(L) 23 - 27 mmol/L 10/27/2024 8:23 AM EDT [facility] Base Excess, Arterial -4.2(L) -2.0 - 3.0 mmol/L 10/27/2024 8:23 AM EDT [facility] %HBO2, Arterial 96.5 95.0 - 98.0 % 10/27/2024 8:23 AM EDT [facility] Carboxyhemoglo bin, Arterial 2.2 % 10/27/2024 8:23 AM EDT [facility] Comment: CARBOXYHEMOGLOBIN (CO) REFERENCE RANGES: Non-Smokers: <2 % Smokers: <8 % TOXIC: >20 % Methemoglobin, Arterial 1.2 0.0 - 1.5 % 10/27/2024 8:23 AM EDT [facility] Reduced hemoglobin, Arterial 0.0 0.0 - 5.0 % 10/27/2024 8:23 AM EDT [facility] Blood, Arterial 10/27/2024 8 :00 AM EDT 10/27/2024 8:19 AM EDT Narrative [facility] - 10/27/2024 8:23 AM EDT Specimen is beyond 15 minutes from time of collection. Results may be compromised. Review results critically. us Kemar Sahni MD LAB BLOOD ORDERABLES Final Result [facility] [address] * (ABNORMAL) TEG-Bypass/ECMO/Liver HN (Factor function, Platelet/Fibrin Clot Strength w/Clot Breakdown, Heparinase In All Channels) (10/27/2024 8:00 AM EDT) Pathologist [facility] Citrated Kaolin Reaction Time (TEGECMOLIVER) 7.8 4.6 - 9.1 minutes 10/27/2024 9:39 AM EDT [facility] Citrated Kaolin W/Heparinase Reaction Time (TEGECMOLIVER) 8.0 4.3 - 8.3 minutes 10/27/2024 9:39 AM EDT [facility] Citrated Kaolin Maximum Amplitude (TEGECMOLIVER) 52.7 52.0 - 69.0 mm 10/27/2024 9:39 AM EDT [facility] Citrated Functional Fibrinogen W/Heparinase Maximum Amplitude(TEGEC MOLIVER) 19.0 15.0 - 34.0 mm 10/27/2024 9:39 AM EDT [facility] Citrated Rapid Teg W/Heparinase Maximum Amplitude (TEGECMOLIVER) 49.5(L) 53.0 - 69.0 mm 10/27/2024 9:39 AM EDT [facility] Citrated Kaolin w/Heparinase Percent Lysis (TEGECMOLIVER) 0.0 0.0 - 3.2 % 10/27/2024 9:39 AM EDT [facility] Whole Blood (Citrate) 10/27/2024 8:00 AM EDT 10/27/2024 8:19 AM EDT us Kemar Sahni MD LAB BLOOD ORDERABLES Final Result [facility] [address] * (ABNORMAL) Katie-Watkins virus VCA IgG Antibody (10/27/2024 8:00 AM EDT) EBV VCA IgG Positive( A) Negative 10/27/2024 11:30 AM EDT [facility] Comment:Presence of detectab le VCA IgG antibodies. 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 EBV IGG NUM 314.00(H) 0.00 - 17.99 U/mL 10/27/2024 11:30 AM EDT [facility] Serum 10/27/2024 8:00 AM EDT 10/27/2024 8:20 AM EDT Kemar Sahni MD LAB BLOOD ORDERABLES Final Result Performing Organization Address [facility] Co de Phone Number [facility] [address] [place] * Hemoglobin A1c (10/27/2024 8:00 AM EDT) Hemoglobin A1C 5.0 4.0 - 5.6 % 10/27/2024 11:12 AM EDT [facility] Comment: Hemoglobin [...] BLOOD ORDERABLES Final Result Performing Organization Address [facility] Co de Phone Number [facility] [address] [place] * (ABNORMAL) POC Glucose Monitoring Device (10/27/2024 7:59 AM EDT) POC Glucose Monitoring Device 113(H) 70 - 100 mg/dL 10/27/2024 7:59 AM EDT [facility] Blood 10/27/2024 7:59 AM EDT 10/27/2024 7:59 AM EDT us Semaj Mcnair III, MD POINT OF CARE TEST ORDERABLES Final Result [facility] [address] [place] [address], [facility] * X-ray Abdomen AP view (10/27/2024 7:47 [...] Units (10/27/2024 6:16 AM EDT) Product Code S1339N61 HCLL Unit Number [id number] HCLL Dispense Status Presumed Transfused_PT HCLL Blood Expiration Date [id number] HCLL Coding System IVGN263 HCLL Product Code X2183P04 HCLL Unit Number [id number] HCLL Dispense Status Presumed Transfused_PT HCLL Blood Expiration Date 688231885064 HCLL Coding System VKXW070 HCLL Blood Bank Product John Pina MD BLOOD BANK PRODUCT ORDERABLES F inal Result Performing Organization Address City/[facility] Co de Phone Number HCLL * Prepare Platelets, leukoreduced, 1 Units (10/27/2024 6:16 AM EDT) Product Code S7829P86 HCLL Unit Number [id number] HCLL Dispense Status Presumed Transfused_PT HCLL Blood Expiration Date 028039335652 HCLL Coding System [id number] HCLL Blood Bank Product Eber Quinones MD BLOOD BANK PRODUCT ORDER PAL Final Result Performing Organization Address City/[facility] Co de Phone Number HCLL * Prepare Cryoprecipitate, 1 Units (10/27/2024 6:16 AM EDT) Product Code V0371D06 HCLL Unit Number [id number] HCLL Dispense Status Presumed Transfused_PT HCLL Blood Expiration Date 687865251876 HCLL Coding System KKOA956 HCLL Product Code V1983D48 HCLL Unit Number [id number] HCLL Dispense Status Presumed Transfused_PT HCLL Blood Expiration Date 987476402809 HCLL Coding System DNPW636 HCLL Blood Bank Product Eber Quinones MD BLOOD BANK PRODUCT ORDER PAL Final Result HCLL * Prepare Fresh Frozen Plasma, 10 Units (10/27/2024 6:16 AM EDT) Product Code I4269W73 HCLL Unit Number [id number] HCLL Dispense Status Presumed Transfused_PT HCLL Blood Expiration Date HCLL Coding System HGXD619 HCLL Product Code X4426X27 HCLL Unit Number [id number] HCLL Dispense Status Presumed Transfused_PT HCLL Blood Expiration Date HCLL Coding System AWFA600 HCLL Product Code U0502C47 HCLL Unit Number [id number] HCLL Dispense Status Presumed Transfused_PT HCLL Blood Expiration Date 934488281564 HCLL Coding System KAUL794 HCLL Product Code T1725W66 HCLL Unit Number [id number] HCLL Dispense Status Presumed Transfused_PT HCLL Blood Expiration Date 673311450293 HCLL Coding System LPJG479 HCLL Product Code A4571U51 HCLL Unit Number [id number] HCLL Dispense Status Released from Crossmatch_RE HCLL Blood Expiration Date 888670006076 HCLL Coding System FTSA215 HCLL Product Code O8887E10 HCLL Unit Number [id number] HCLL Dispense Status Released from Crossmatch_RE HCLL Blood Expiration Date HCLL Coding System GOWS473 HCLL Product Code E8198F12 HCLL Unit Number [id number] HCLL Dispense Status Presumed Transfused_PT HCLL Blood Expiration Date HCLL Coding System NETS223 HCLL Product Code W9139X16 HCLL Unit Number [id number] HCLL Dispense Status Presumed Transfused_PT HCLL Blood Expiration Date HCLL Coding System ZHQO831 HCLL Product Code K3698S49 HCLL Unit Number [id number] HCLL Dispense Status Presumed Transfused_PT HCLL Blood Expiration Date HCLL Coding System FIZF865 HCLL Product Code W7178O04 HCLL Unit Number [id number] HCLL Dispense Status Presumed Transfused_PT HCLL Blood Expiration Date 092822929492 HCLL Coding System GCGR109 HCLL Blood Bank Product Leandra Og MD BLOOD BANK PRODUCT ORD ERABLES Final Result HCLL * Prepare Platelets, leukoreduced, 1 Units (10/27/2024 6:16 AM EDT) Product Code H9732F51 HCLL Unit Number [id number] HCLL Dispense Status Presumed Transfused_PT HCLL Blood Expiration Date 579108730057 HCLL Coding System DWKY070 HCLL Blood Bank Product Ben Blake MD BLOOD BANK PRODUCT ORDERABLES Final Result HCLL * Prepare Fresh Frozen Plasma (10/27/2024 6:15 AM EDT) Product Code J2080V65 HCLL Unit Number [id number] HCLL Dispense Status Presumed Transfused_PT HCLL Blood Expiration Date 235008307774 HCLL Coding System OGUT449 HCLL Product Code J3636A11 HCLL Unit Number [id number] HCLL Dispense Status Released from Crossmatch_RE HCLL Blood Expiration Date HCLL Coding System WREP049 HCLL Product Code T9207V44 HCLL Unit Number [id number] HCLL Dispense Status Presumed Transfused_PT HCLL Blood Expiration Date HCLL Coding System RVFC388 HCLL Product Code J3110O62 HCLL Unit Number [id number] HCLL Dispense Status Presumed Transfused_PT HCLL Blood Expiration Date HCLL Coding System QMJQ955 HCLL Product Code S0313Y45 HCLL Unit Number [id number] HCLL Dispense Status Released from Crossmatch_RE HCLL Blood Expiration Date HCLL Coding System NNIY264 HCLL us Attending Provider Unknown BLOOD BANK PRODUCT OR DERABLES Final Result HCLL * Prepare RBC, leukoreduced (10/27/2024 6:15 AM EDT) Product Code M2352Z42 HCLL Unit Number [id number] HCLL Dispense Status Presumed Transfused_PT HCLL Blood Expiration Date HCLL Coding System GING503 HCLL Product Code H4054C15 HCLL Unit Number [id number] HCLL Dispense Status Released from Crossmatch_RE HCLL Blood Expiration Date HCLL Coding System QKRJ883 HCLL Product Code P0344M51 HCLL Unit Number [id number] HCLL Dispense Status Released from Crossmatch_RE HCLL Blood Expiration Date 653644995695 HCLL Coding System VUOX380 HCLL Product Code X2324Y28 HCLL Unit Number [id number] HCLL Dispense Status Released from Crossmatch_RE HCLL Blood Expiration Date 530201520249 HCLL Coding System TVKT762 HCLL Product Code A8642W20 HCLL Unit Number [id number] HCLL Dispense Status Released from Crossmatch_RE HCLL Blood Expiration Date 415307284813 HCLL Coding System QQGZ041 HCLL us Attending Provider Unknown BLOOD BANK PRODUCT OR DERABLES Final Result HCLL * Prepare RBC, leukoreduced, 10 Units (10/27/2024 6:15 AM EDT) Product Code O3402A75 HCLL Unit Number [id number] HCLL Dispense Status Presumed Transfused_PT HCLL Blood Expiration Date 156773974035 HCLL Coding System LWSL880 HCLL Product Code J6957B18 HCLL Unit Number [id number] HCLL Dispense Status Presumed Transfused_PT HCLL Blood Expiration Date 479763766925 HCLL Coding System QYFG096 HCLL Product Code H7604I77 HCLL Unit Number [id number] HCLL Dispense Status Presumed Transfused_PT HCLL Blood Expiration Date 182595499873 HCLL Coding System XNMK329 HCLL Product Code J7711Y40 HCLL Unit Number [id number] HCLL Dispense Status Presumed Transfused_PT HCLL Blood Expiration Date 699642954203 HCLL Coding System FXRP434 HCLL Product Code T7827Z71 HCLL Unit Number [id number] HCLL Dispense Status Presumed Transfused_PT HCLL Blood Expiration Date 695644521268 HCLL Coding System VQCJ819 HCLL Product Code X0574Q79 HCLL Unit Number [id number] HCLL Dispense Status Presumed Transfused_PT HCLL Blood Expiration Date 225616386224 HCLL Coding System XEMF882 HCLL Product Code I1225N65 HCLL Unit Number [id number] HCLL Dispense Status Presumed Transfused_PT HCLL Blood Expiration Date HCLL Coding System AGPQ718 HCLL Product Code A6030O16 HCLL Unit Number [id number] HCLL Dispense Status Presumed Transfused_PT HCLL Blood Expiration Date 859876720257 HCLL Coding System BDQU122 HCLL Product Code F2548I03 HCLL Unit Number [id number] HCLL Dispense Status Presumed Transfused_PT HCLL Blood Expiration Date HCLL Coding System ISZB268 HCLL Product Code O7562B67 HCLL Unit Number [id number] HCLL Dispense Status Presumed Transfused_PT HCLL Blood Expiration Date HCLL Coding System UPYT276 HCLL Blood Bank Product us Leandra Og MD BLOOD BANK PRODUCT ORD ERABLES Final Result HCLL * Transfuse Platelets (10/27/2024 6:09 AM EDT) us Ben Blake MD NURSING TREATMENT ORDERABLES - BLOOD ADMIN Final Result * (ABNORMAL) Arterial Blood Gas Panel (10/27/2024 6:09 AM EDT) O2Sat (ABGP) 100 10/27/2024 6:17 AM EDT [facility] pH (ABGP) 7.30(L) 7.35 - 7.45 10/27/2024 6:17 AM EDT [facility] PCO2 (ABGP) 41 35 - 45 mm Hg 10/27/2024 6:17 AM EDT [facility] PO2 (ABGP) 192(H) 80 - 100 mm Hg 10/27/2024 6:17 AM EDT [facility] HCO3 (ABGP) 21(L) 22 - 26 mmol/L 10/27/2024 6:17 AM EDT [facility] CO2 Content (ABGP) 22(L) 23 - 27 mmol/L 10/27/2024 6:17 AM EDT [facility] Base Excess (ABGP) -5.7(L) -2.0 - 3.0 mmol/L 10/27/2024 6:17 AM EDT [facility] Sodium (ABGP) 138 136 - 146 mEq/L 10/27/2024 6:17 AM EDT [facility] Potassium (ABGP) 3.3(L) 3.5 - 5.0 mEq/L 10/27/2024 6:17 AM EDT [facility] Comment:In the event of in-v itro hemolysis, potassium results may be falsely elevated. Always interpret lab results in conjunction with clinical findings. If hemolysis is suspected, a serum sample may be collected for repeat assessment of potassium. Calcium, Free (ABGP) 5.28 4.50 - 5.30 mg/dL 10/27/2024 6:17 AM EDT [facility] Glucose (ABGP) 112(H) 70 - 100 mg/dL 10/27/2024 6:17 AM EDT [facility] Comment:There is interferenc e with whole blood glucose results on this method when Hematocrit is <25% or >60%. HCT (ABGP) 20.0(L) 40.0 - 52.0 % 10/27/2024 6:17 AM EDT [facility] HGB (ABGP) 6.5(L) 14.0 - 18.0 g/dL 10/27/2024 6:17 AM EDT [facility] %HBO2 (ABGP) 96.8 95.0 - 98.0 % 10/27/2024 6:17 AM EDT [facility] Carboxyhgb (ABGP) 2.1 % 025 6:17 AM EDT [facility] Comment: CARBOXYHEMOGLOBIN (CO) REFERENCE RANGES: Non-Smokers: <2 % Smokers: <8 % TOXIC: >20 % Methemoglobin (ABGP) 1.0 0.0 - 1.5 % 10/27/2024 6:17 AM EDT [facility] Reduced Hemoglobin (ABGP) 0.2 0.0 - 5.0 % 10/27/2024 6:17 AM EDT [facility] Lactic Acid (ABGP) 0.4(L) 0.5 - 1.6 mmol/L 10/27/2024 6:17 AM EDT [facility] Blood, Arterial 10/27/2024 6 :09 AM EDT 10/27/2024 6:14 AM EDT us Ben Blake MD LAB BLOOD ORDERABLES Final Re sult [facility] [address] * Transfuse Fresh Frozen Plasma (10/27/2024 [...] - 100 mg/dL 10/27/2024 4:47 AM EDT [facility] Blood 10/27/2024 4:46 AM EDT 10/27/2024 4:47 AM EDT Result [facility] Semaj Mcnair III, MD POINT OF CARE TEST ORDERABLES Final Result [facility] [address] * Transfuse Platelets (10/27/2024 4:24 AM [...] O2Sat (ABGP) 100 10/27/2024 3:21 AM EDT [facility] pH (ABGP) 7.32(L) 7.35 - 7.45 10/27/2024 3:21 AM EDT [facility] PCO2 (ABGP) 38 35 - 45 mm Hg 10/27/2024 3:21 AM [facility] PO2 (ABGP) 176(H) 80 - 100 mm Hg 10/27/2024 3:21 AM [facility] HCO3 (ABGP) 20(L) 22 - 26 mmol/L 10/27/2024 3:21 AM T [facility] CO2 Content (ABGP) 21(L) 23 - 27 mmol/L 10/27/2024 3:21 AM [facility] Base Excess (ABGP) -6.0(L) -2.0 - 3.0 mmol/L 10/27/2024 3:21 AM [facility] Sodium (ABGP) 138 136 - 146 mEq/L 10/27/2024 3:21 AM [facility] Potassium (ABGP) 3.0(L) 3.5 - 5.0 mEq/L 10/27/2024 3:21 AM [facility] Comment:In the event of in-v itro hemolysis, potassium results may be falsely elevated. Always interpret lab results in conjunction with clinical findings. If hemolysis is suspected, a serum sample may be collected for repeat assessment of potassium. Calcium, Free (ABGP) 5.28 4.50 - 5.30 mg/dL 10/27/2024 3:21 AM [facility] Glucose (ABGP) 108(H) 70 - 100 mg/dL 10/27/2024 3:21 AM [facility] Comment:There is interferenc e with whole blood glucose results on this method when Hematocrit is <25% or >60%. HCT (ABGP) 22.0(L) 40.0 - 52.0 % 10/27/2024 3:21 AM [facility] HGB (ABGP) 7.3(L) 14.0 - 18.0 g/dL 10/27/2024 3:21 AM [facility] %HBO2 (ABGP) 97.3 95.0 - 98.0 % 10/27/2024 3:21 AM T [facility] Carboxyhgb (ABGP) 1.9 % 025 3:21 AM EDT [facility] Comment: CARBOXYHEMOGLOBIN (CO) REFERENCE RANGES: Non-Smokers: <2 % Smokers: <8 % TOXIC: >20 % Methemoglobin (ABGP) 0.8 0.0 - 1.5 % 10/27/2024 3:21 AM EDT [facility] Reduced Hemoglobin (ABGP) 0.0 0.0 - 5.0 % 10/27/2024 3:21 AM EDT [facility] Lactic Acid (ABGP) 0.3(L) 0.5 - 1.6 mmol/L 10/27/2024 3:21 AM EDT [facility] Blood, Arterial 10/27/2024 3 :07 AM EDT 10/27/2024 3:14 AM EDT us Ben Blake MD LAB BLOOD ORDERABLES Final Re sult Performing Organization Address City/State/[facility] Co de Phone Number [facility] [address] * Surgical Pathology Exam (10/27/2024 2:38 AM EDT) Tissue LEFT KIDNEY STRUCTURE / Unknown 10/27/2024 2:38 AM EDT Narrative [facility] - 10/27/2024 12:00 AM EDT CASE: [id number] PATIENT: BLAIR GILBERT Clinical History: Transplant kidney with bile duct reconstruction Pre-Operative Diagnosis: Acute kidney injury superimposed on CKD Post-Operative Diagnosis: None Given Specimen(s) Submitted: A. baseline renal biopsy ; B. right lobe liver biopsy; C. left lobe liver biopsy CPT Code(s): 43985 X 1; 88543 X 2; 95827 X 4 Additional Information: FINAL DIAGNOSIS: A. [...] signing this report is located at [facility], [address] [place] [address], Formerly [facility], [facility], , CLIA ID: [id number] ADDENDUM: A. Kidney, allograft, baseline, wedge biopsy: [...] signing this report is located at [facility], [address] [place] [address], [place], [place], [facility], [facility], , CLIA ID: [id number] Kemar Sahni MD PATHOLOGY/CYTOLOGY ORDERABL ES Edited Result - Final Performing Organization Address [facility] Co de Phone Number [facility] * Anaerobic culture (10/27/2024 2:15 AM EDT) Culture Result No Anaerobes Isolated in 5 Days [facility] Fluid SPECIMEN FROM KIDNEY / Unknown 10/27/2024 2:15 AM EDT 10/27/2024 4:24 AM EDT Narrative [facility] - 10/31/2024 11:43 AM EDT 1) perfusate us Semaj Mcnair III, MD MICROBIOLOGY - GENE RAL ORDERABLES Final Result Performing Organization Address [facility] Co de Phone Number [facility] [address] [place] [address] * Fungus culture (10/27/2024 2:15 AM EDT) Culture Result No Fungus Isolated At 4 Weeks [facility] Fluid SPECIMEN FROM KIDNEY / Unknown 10/27/2024 2:15 AM EDT 10/27/2024 4:24 AM EDT Narrative [facility] - 11/24/2024 7:52 AM EDT 1) perfusate Semaj Mcnair III, MD MICROBIOLOGY - GENE RAL ORDERABLES Final Result Performing Organization Address [facility] Co de Phone Number [facility] [address] [place] [address], [place] * Routine Culture plus Stain (10/27/2024 2:15 AM EDT) Gram Stain Result No Polymorphonuclear Leukocytes Seen [facility] Gram Stain Result No Organisms Seen; [facility] Culture Result No Growth After 3 Days [facility] Fluid SPECIMEN FROM KIDNEY / Unknown 10/27/2024 2:15 AM EDT 10/27/2024 4:24 AM EDT Narrative [facility] - 10/30/2024 9:26 AM EDT 1) perfusate Semaj Mcnair III, MD MICROBIOLOGY - GENE RAL ORDERABLES Final Result Performing Organization Address [facility] Co de Phone Number [facility] [address] * Transfuse Platelets Transfusion Rate: Per dept routine (10/27/2024 1:52 AM EDT) John Pina MD NURSING TREATMENT ORDERABLES - BLOOD ADMIN Final Result Performing Organization Address [facility] Co de Phone Number EXTERNAL * Transfuse Platelets Transfusion Rate: Per dept routine, 1 Units (10/27/2024 1:52 AM EDT) John Pina MD NURSING TREATMENT ORDERABLES - BLOOD ADMIN Final Result Performing Organization Address [facility] de Phone Number EXTERNAL * (ABNORMAL) TEG-Standard Global Hemostasis (Rapid TEG with Heparin Effect, Contains a Baseline TEG) (10/27/2024 1:51 AM EDT) Citrated Kaolin Reaction Time (TEGHEPARINASE) 10.6(H) 4.6 - 9.1 minutes 10/27/2024 2:44 AM EDT [facility] Citrated Rapid Teg Maximum Amplitude (TEGHEPARINASE) 42.3(L) 52.0 - 70.0 mm 10/27/2024 2:44 AM EDT [facility] Citrated Functional Fibrinogen Maximum Amplitude (TEGHEPARINASE) 15.0 15.0 - 32.0 mm 10/27/2024 2:44 AM EDT [facility] Citrated Kaolin W/Heparinase Reaction Time (TEGHEPARINASE) 10.5(H) 4.3 - 8.3 minutes 10/27/2024 2:44 AM EDT [facility] Citrated Kaolin K-Time (TEGHEPARINASE) 2.9(A) 0.8 - 2.1 minutes 10/27/2024 2:44 AM EDT [facility] Citrated Kaolin Angle (TEGHEPARINASE) 60.4(A) 63.0 - 78.0 degrees 10/27/2024 2:44 AM EDT [facility] Citrated Kaolin Maximum Amplitude (TEGHEPARINASE) 42.9(L) 52.0 - 69.0 mm 10/27/2024 2:44 AM EDT [facility] Citrated Functional Fibrinogen- Fibrinogen Level (TEGHEPARINASE) 273.7(L) 278.0 - 581.0 mg/dL 10/27/2024 2:44 AM EDT [facility] Whole Blood (Citrate) 10/27/2024 1:51 AM EDT 10/27/2024 2:03 AM EDT us John Pina MD LAB BLOOD ORDERABLES Final Resu lt Performing Organization Address City/[facility]/ZIP Co de Phone Number [facility] [address] * (ABNORMAL) POC Glucose Monitoring Device (10/27/2024 1:50 AM EDT) [facility] POC Glucose Monitoring Device 121(H) 70 - 100 mg/dL 10/27/2024 1:51 AM EDT [facility] Blood 10/27/2024 1:50 AM EDT 10/27/2024 1:51 AM EDT us Semaj Mcnair III, MD POINT OF CARE TEST ORDERABLES Final Result Performing Organization Address [facility] Co de Phone Number [facility] [address] * Transfuse Cryoprecipitate Transfusion Rate: Per dept routine (10/27/2024 1:25 AM EDT) us John Pina MD NURSING TREATMENT ORDERABLES - BLOOD ADMIN Final Result Performing Organization Address [facility] de Phone Number EXTERNAL * Transfuse Cryoprecipitate Transfusion Rate: Per dept routine, 1 Units (10/27/2024 1:25 AM EDT) John Pina MD NURSING TREATMENT ORDERABLES - BLOOD ADMIN Final Result Performing Organization Address [facility] de Phone Number EXTERNAL * (ABNORMAL) POC Glucose Monitoring Device (10/27/2024 1:21 AM EDT) POC Glucose Monitoring Device 123(H) 70 - 100 mg/dL 10/27/2024 1:22 AM EDT [facility] Blood 10/27/2024 1:21 AM EDT 10/27/2024 1:21 AM EDT Result [facility] Semaj Mcnair III, MD POINT OF CARE TEST ORDERABLES Final Result Performing Organization Address [facility] de Phone Number [facility] [address] * Transfuse Fresh Frozen Plasma Transfusion Rate: Per dept routine (10/27/2024 1:03 AM EDT) us John Pina MD NURSING TREATMENT ORDERABLES - BLOOD ADMIN Final Result Performing Organization Address [facility] de Phone Number EXTERNAL * Transfuse Fresh Frozen Plasma Transfusion Rate: Per dept routine, 1 Units (10/27/2024 1:03 AM EDT) John Pina MD NURSING TREATMENT ORDERABLES - BLOOD ADMIN Final Result Performing Organization Address [facility] de Phone Number EXTERNAL * Calcium Free, Serum (10/27/2024 12:13 AM EDT) Free Calcium, Ser 5.20 4.40 - 5.40 mg/dL 10/27/2024 12:37 AM EDT [facility] Comment:Free calcium levels vary inversely with pH by approximately 5% for each 0.1 unit of pH change. Assay results have been normalized to pH = 7.40. Serum 10/27/2024 12:1 3 AM EDT 10/27/2024 12:29 AM EDT Narrative [facility] - 10/27/2024 12:37 AM EDT This test has been developed and its performance characteristics determined by [facility] which is certified under [...] Final Resu lt [facility] [address] [place] [id number], [facility] * (ABNORMAL) Blood Gas, Arterial, STAT (10/27/2024 12:13 AM EDT) O2 Sat, Arterial 100 10/27/2024 12:23 AM EDT [facility] FIO2 30 10/27/2024 12:23 AM EDT [facility] pH, Arterial 7.32(L) 7.35 - 7.45 10/27/2024 12:23 AM EDT [facility] pCO2, Arterial 37 35 - 45 mm Hg 10/27/2024 12:23 AM EDT [facility] pO2, Arterial 137(H) 80 - 100 mm Hg 10/27/2024 12:23 AM EDT [facility] HCO3, Arterial 20(L) 22 - 26 mmol/L 10/27/2024 12:23 AM EDT [facility] CO2 Content,Arteri al 20(L) 23 - 27 mmol/L 10/27/2024 12:23 AM EDT [facility] Base Excess, Arterial -6.4(L) -2.0 - 3.0 mmol/L 10/27/2024 12:23 AM EDT [facility] %HBO2, Arterial 96.2 95.0 - 98.0 % 10/27/2024 12:23 AM EDT [facility] Carboxyhemoglo bin, Arterial 1.9 % 10/27/2024 12:23 AM EDT [facility] Comment: CARBOXYHEMOGLOBIN (CO) REFERENCE RANGES: Non-Smokers: <2 % Smokers: <8 % TOXIC: >20 % Methemoglobin, Arterial 1.5 0.0 - 1.5 % 10/27/2024 12:23 AM EDT [facility] Reduced hemoglobin, Arterial 0.4 0.0 - 5.0 % 10/27/2024 12:23 AM EDT [facility] Blood, Arterial 10/27/2024 1 2:13 AM EDT 10/27/2024 12:18 AM EDT us John Pina MD LAB BLOOD ORDERABLES Final Resu lt [facility] [address] [place], [place] [address] * (ABNORMAL) TEG-Bypass/ECMO/Liver HN (Factor function, Platelet/Fibrin Clot Strength w/Clot Breakdown, Heparinase In All Channels) (10/27/2024 12:13 AM EDT) [facility] Citrated Kaolin Reaction Time (TEGECMOLIVER) 9.1 4.6 - 9.1 minutes 10/27/2024 1:43 AM EDT [facility] Citrated Kaolin W/Heparinase Reaction Time (TEGECMOLIVER) 9.7(H) 4.3 - 8.3 minutes 10/27/2024 1:43 AM EDT [facility] Citrated Kaolin Maximum Amplitude (TEGECMOLIVER) <40.0(L) 52.0 - 69.0 mm 10/27/2024 1:43 AM EDT [facility] Citrated Functional Fibrinogen W/Heparinase Maximum Amplitude(TEGEC MOLIVER) 11.9(L) 15.0 - 34.0 mm 10/27/2024 1:43 AM EDT [facility] Citrated Rapid Teg W/Heparinase Maximum Amplitude (TEGECMOLIVER) 31.6(L) 53.0 - 69.0 mm 10/27/2024 1:43 AM EDT [facility] Citrated Kaolin w/Heparinase Percent Lysis (TEGECMOLIVER) 0.0 0.0 - 3.2 % 10/27/2024 1:43 AM EDT [facility] Whole Blood (Citrate) 10/27/2024 12:13 AM EDT 10/27/2024 12:18 AM EDT Kemar Sahni MD LAB BLOOD ORDERABLES Final Result Performing Organization Address City/[facility]/ZIP Co de Phone Number [facility] [address] [facility]. [address] * (ABNORMAL) Lactic Acid (10/27/2024 12:13 AM EDT) Lactate 0.2(L) 0.5 - 2.2 mmol/L 10/27/2024 12:59 AM EDT [facility] Plasma 10/27/2024 12:1 3 AM EDT 10/27/2024 12:31 AM EDT Kemar Sahni MD LAB BLOOD ORDERABLES Final Result Performing Organization Address [facility] Co de Phone Number [facility] [address] [place] [facility]. [address] * Magnesium (10/27/2024 12:13 AM EDT) Magnesium 1.8 1.5 - 2.5 mg/dL 10/27/2024 12:52 AM EDT [facility] Plasma 10/27/2024 12:1 3 AM EDT 10/27/2024 12:29 AM EDT Kemar Sahni MD LAB BLOOD ORDERABLES Final Result Performing Organization Address City/[facility] Co de Phone Number [facility] [address]. [address] * (ABNORMAL) Hepatic Function Panel (10/27/2024 12:13 AM EDT) Total Bilirubin 1.6(H) 0.0 - 1.5 mg/dL 10/27/2024 12:52 AM EDT [facility] Bilirubin, Direct 1.17(H) 0.00 - 0.40 mg/dL 10/27/2024 12:52 AM EDT [facility] AST 157(H) 13 - 39 U/L 10/27/2024 12:52 AM EDT [facility] ALT 261(H) 7 - 52 U/L 10/27/2024 12:52 AM EDT [facility] Alkaline Phosphatase 26(L) 36 - 125 U/L 10/27/2024 12:52 AM EDT [facility] Total Protein 3.8(L) 6.4 - 8.9 g/dL 10/27/2024 12:52 AM EDT [facility] Albumin 2.8(L) 3.5 - 5.7 g/dL 10/27/2024 12:52 AM EDT [facility] Bilirubin, Indirect 0.43 0.00 - 1.10 mg/dL 10/27/2024 12:52 AM EDT [facility] Plasma 10/27/2024 12:1 3 AM EDT 10/27/2024 12:29 AM EDT Kemar Sahni MD LAB BLOOD ORDERABLES Final Result Performing Organization Address City/State/[facility] Co de Phone Number [facility] [address] * (ABNORMAL) Protime-INR (10/27/2024 12:13 AM EDT) Protime 18.6(H) 12.1 - 15.1 seconds 10/27/2024 12:43 AM EDT [facility] INR 1.5(H) 0.9 - 1.1 10/27/2024 12:43 AM EDT [facility] Comment: RECOMMENDED THERAPEUTIC RANGES USING INR : Stable oral anticoagulant therapy: 2.0 - 3.0 Mechanical prosthetic heart valve: 2.5 - 3.5 Recurrent acute myocardial infarction: 2.5 - 3.5 Plasma 10/27/2024 12:1 3 AM EDT 10/27/2024 12:29 AM EDT Kemar Sahni MD LAB BLOOD ORDERABLES Final Result [facility] [address] * (ABNORMAL) CBC (10/27/2024 12:13 AM EDT) [facility] Signature WBC 5.0 3.8 - 10.8 10E3/uL 10/27/2024 12:59 AM EDT [facility] RBC 2.70(L) 4.20 - 5.80 10E6/uL 10/27/2024 12:59 AM EDT [facility] Hemoglobin 8.5(L) 13.2 - 17.1 g/dL 10/27/2024 12:59 AM EDT [facility] Hematocrit 23.9(L) 38.5 - 50.0 % 10/27/2024 12:59 AM EDT [facility] MCV 88.5 80.0 - 100.0 fL 10/27/2024 12:59 AM EDT [facility] MCH 31.5 27.0 - 33.0 pg 10/27/2024 12:59 AM EDT [facility] MCHC 35.6 32.0 - 36.0 g/dL 10/27/2024 12:59 AM EDT [facility] RDW 20.6(H) 11.0 - 15.0 % 10/27/2024 12:59 AM EDT [facility] Platelets 35(L) 140 - 400 10E3/uL 10/27/2024 12:59 AM EDT [facility] Comment: CNV Specimen checked for clots. None detected. MPV 7.6 7.5 - 11.5 fL 10/27/2024 12:59 AM EDT [facility] Whole Blood 10/27/2024 12:1 3 AM EDT 10/27/2024 12:29 AM EDT Kemar Sahni MD LAB BLOOD ORDERABLES Final Result [facility] [address] * (ABNORMAL) Renal Function Panel w/EGFR (10/27/2024 12:13 AM EDT) Sodium 141 133 - 146 mmol/L 10/27/2024 12:52 AM EDT [facility] Potassium 3.2(L) 3.5 - 5.3 mmol/L 10/27/2024 12:52 AM EDT [facility] Chloride 109 98 - 110 mmol/L 10/27/2024 12:52 AM EDT [facility] CO2 21 21 - 33 mmol/L 10/27/2024 12:52 AM EDT [facility] Anion Gap 11 3 - 16 mmol/L 10/27/2024 12:52 AM EDT [facility] BUN 64(H) 7 - 25 mg/dL 10/27/2024 12:52 AM T [facility] Creatinine 2.58(H) 0.60 - 1.30 mg/dL 10/27/2024 12:52 AM [facility] Glucose 126(H) 70 - 100 mg/dL 10/27/2024 12:52 AM EDT [facility] Calcium 8.9 8.6 - 10.3 mg/dL 10/27/2024 12:52 AM EDT [facility] Phosphorus 5.3(H) 2.1 - 4.7 mg/dL 10/27/2024 12:52 AM T [facility] Albumin 2.8(L) 3.5 - 5.7 g/dL 10/27/2024 12:52 AM [facility] Osmolality, Calculated 312(H) 278 - 305 mOsm/kg 10/27/2024 12:52 AM EDT [facility] EGFR 31 10/27/2024 12:52 AM EDT [facility] Comment:As [...] M, Olivia [place], Emerita [place], Madelyn [place], Ticket Maker [place], et al. A Unifying Approach for GFR Estimation: Recommendations of the NKF-ASN Task Force on Reassessing the inclusion of Race in Diagnosing Kidney Disease. Am J Kidney Dis. 2020. Plasma 10/27/2024 12:1 3 AM EDT 10/27/2024 12:29 AM EDT Kemar Sahni MD LAB BLOOD ORDERABLES Final Result Performing Organization Address City/[facility]/ZIP Co de Phone Number [facility] [address] [place]. [address] * (ABNORMAL) POC Glucose Monitoring Device (10/27/2024 12:08 AM EDT) POC Glucose Monitoring Device 121(H) 70 - 100 mg/dL 10/27/2024 12:08 AM EDT [facility] Blood 10/27/2024 12:0 8 AM EDT 10/27/2024 12:08 AM EDT Semaj Mcnair III, MD POINT OF CARE TEST ORDERABLES Final Result Performing Organization Address [facility] de Phone Number [facility] [address] [place] * (ABNORMAL) POC Glucose Monitoring Device (10/26/2024 11:15 PM EDT) POC Glucose Monitoring Device 120(H) 70 - 100 mg/dL 10/26/2024 11:15 PM EDT [facility] Blood 10/26/2024 11:1 5 PM EDT 10/26/2024 11:15 PM EDT Semaj Mcnair III, MD POINT OF CARE TEST ORDERABLES Final Result Performing Organization Address [facility] Co de Phone Number [facility] [address] [place] * (ABNORMAL) TEG-Bypass/ECMO/Liver HN (Factor function, Platelet/Fibrin Clot Strength w/Clot Breakdown, Heparinase In All Channels) (10/26/2024 10:36 PM EDT) Citrated Kaolin Reaction Time (TEGECMOLIVER) 10.0(H) 4.6 - 9.1 minutes 10/26/2024 11:53 PM EDT [facility] Citrated Kaolin W/Heparinase Reaction Time (TEGECMOLIVER) 10.2(H) 4.3 - 8.3 minutes 10/26/2024 11:53 PM EDT [facility] Citrated Kaolin Maximum Amplitude (TEGECMOLIVER) <40.0(L) 52.0 - 69.0 mm 10/26/2024 11:53 PM EDT [facility] Citrated Functional Fibrinogen W/Heparinase Maximum Amplitude(TEGEC MOLIVER) 11.3(L) 15.0 - 34.0 mm 10/26/2024 11:53 PM EDT [facility] Citrated Rapid Teg W/Heparinase Maximum Amplitude (TEGECMOLIVER) 41.8(L) 53.0 - 69.0 mm 10/26/2024 11:53 PM EDT [facility] Citrated Kaolin w/Heparinase Percent Lysis (TEGECMOLIVER) 0.0 0.0 - 3.2 % 10/26/2024 11:53 PM EDT [facility] Whole Blood (Citrate) 10/26/2024 10:36 PM EDT 10/26/2024 10:43 PM EDT Kemar Sahni MD LAB BLOOD ORDERABLES Final Result [facility] [address] [place] [address], [facility] * (ABNORMAL) POC Glucose Monitoring Device (10/26/2024 10:14 PM EDT) POC Glucose Monitoring Device 124(H) 70 - 100 mg/dL 10/26/2024 11:11 PM EDT [facility] Blood 10/26/2024 10:1 4 PM EDT 10/26/2024 11:11 PM EDT Semaj Mcnair III, MD POINT OF CARE TEST ORDERABLES Final Result Performing Organization Address City/[facility]/ZIP Co de Phone Number [facility] [address] * (ABNORMAL) POC Glucose Monitoring Device (10/26/2024 9:16 PM EDT) POC Glucose Monitoring Device 119(H) 70 - 100 mg/dL 10/26/2024 9:18 PM EDT [facility] Blood 10/26/2024 9:16 PM EDT 10/26/2024 9:18 PM EDT Semaj Mcnair III, MD POINT OF CARE TEST ORDERABLES Final Result Performing Organization Address City/[facility] Co de Phone Number [facility] [address] [facility]. [address] * (ABNORMAL) POC Glucose Monitoring Device (10/26/2024 8:05 PM EDT) POC Glucose Monitoring Device 113(H) 70 - 100 mg/dL 10/26/2024 8:06 PM EDT [facility] Blood 10/26/2024 8:05 PM EDT 10/26/2024 8:06 PM EDT Semaj Mcnair III, MD POINT OF CARE TEST ORDERABLES Final Result Performing Organization Address City/[facility]/ZIP Co de Phone Number [facility] [address] * (ABNORMAL) POC Glucose Monitoring Device (10/26/2024 7:02 PM EDT) POC Glucose Monitoring Device 111(H) 70 - 100 mg/dL 10/26/2024 7:03 PM EDT [facility] Blood 10/26/2024 7:02 PM EDT 10/26/2024 7:03 PM EDT Semaj Mcnair III, MD POINT OF CARE TEST ORDERABLES Final Result Performing Organization Address [facility] Co de Phone Number [facility] [address] * Transfuse Cryoprecipitate Transfusion Rate: Per dept routine (10/26/2024 6:39 PM EDT) us John Pina MD NURSING TREATMENT ORDERABLES - BLOOD ADMIN Final Result Performing Organization Address City/[facility] Co de Phone Number EXTERNAL * Transfuse Cryoprecipitate Transfusion Rate: Per dept routine, 1 Units (10/26/2024 6:39 PM EDT) us John Pina MD NURSING TREATMENT ORDERABLES - BLOOD ADMIN Final Result Performing Organization Address [facility] Co de Phone Number EXTERNAL * (ABNORMAL) POC Glucose Monitoring Device (10/26/2024 6:33 PM EDT) [facility] POC Glucose Monitoring Device 110(H) 70 - 100 mg/dL 10/26/2024 6:34 PM EDT [facility] Blood 10/26/2024 6:33 PM EDT 10/26/2024 6:34 PM EDT Semaj Mcnair III, MD POINT OF CARE TEST ORDERABLES Final Result Performing Organization Address [facility] de Phone Number [facility] [address] [place] * Transfuse Cryoprecipitate Transfusion Rate: Per dept routine (10/26/2024 6:22 PM EDT) us John Pina MD NURSING TREATMENT ORDERABLES - BLOOD ADMIN Final Result Performing Organization Address City/[facility] Co de Phone Number EXTERNAL * Transfuse Cryoprecipitate Transfusion Rate: Per dept routine, 1 Units (10/26/2024 6:22 PM EDT) us John Pina MD NURSING TREATMENT ORDERABLES - BLOOD ADMIN Final Result Performing Organization Address City/[facility]/ZIP Co de Phone Number EXTERNAL * (ABNORMAL) POC Glucose Monitoring Device (10/26/2024 6:17 PM EDT) POC Glucose Monitoring Device 104(H) 70 - 100 mg/dL 10/26/2024 6:18 PM EDT [facility] Blood 10/26/2024 6:17 PM EDT 10/26/2024 6:18 PM EDT us Semaj Mcnair III, MD POINT OF CARE TEST ORDERABLES Final Result Performing Organization Address [facility] Co de Phone Number [facility] [address] [place] [address]. [address] * (ABNORMAL) POC Glucose Monitoring Device (10/26/2024 4:58 PM EDT) POC Glucose Monitoring Device 115(H) 70 - 100 mg/dL 10/26/2024 4:59 PM EDT [facility] Blood 10/26/2024 4:58 PM EDT 10/26/2024 4:58 PM EDT Semaj Mcnair III, MD POINT OF CARE TEST ORDERABLES Final Result Performing Organization Address [facility] de Phone Number [address] * (ABNORMAL) Calcium Free, Serum (10/26/2024 4:42 PM EDT) Free Calcium, Ser 5.67(H) 4.40 - 5.40 mg/dL 10/26/2024 4:55 PM EDT [facility] Comment:Free calcium levels vary inversely with pH by approximately 5% for each 0.1 unit of pH change. Assay results have been normalized to pH = 7.40. Serum 10/26/2024 4:42 PM EDT 10/26/2024 4:47 PM EDT Narrative [facility] - 10/26/2024 4:55 PM EDT This test has been developed and its performance characteristics determined by [facility] which is certified under [...] ORDERABLES Final Resu lt Performing Organization Address City/[facility]/ZIP Co de Phone Number [facility] [address] * Repeat Crossmatch (Recipient Sample) (10/26/2024 4:42 PM EDT) Repeat Cx - Recipient The request and specimen(s) for this test have been received and transported to the [facility] at [address] [place] [address]. The [facility] will report results directly to the client. 10/26/2024 4:49 PM EDT [facility] Whole Blood 10/26/2024 4:42 PM EDT 10/26/2024 4:49 PM EDT Narrative [facility] - 10/26/2024 4:49 PM EDT To be sent to [facility] for Donor UNOS#[id number] cross match with Blair Gilbert Sveta Judge MD LAB BLOOD ORDERABLES Final Resu lt Performing Organization Address [facility]/ZIP Co de Phone Number [facility] [address] * (ABNORMAL) Lactic Acid (10/26/2024 4:42 PM EDT) Lactate 0.3(L) 0.5 - 2.2 mmol/L 10/26/2024 5:19 PM EDT [facility] Plasma 10/26/2024 4:42 PM EDT 10/26/2024 4:47 PM EDT Kemar Sahni MD LAB BLOOD ORDERABLES Final Result [facility] [address] * Magnesium (10/26/2024 4:42 PM EDT) Magnesium 2.0 1.5 - 2.5 mg/dL 10/26/2024 5:24 PM EDT [facility] Plasma 10/26/2024 4:42 PM EDT 10/26/2024 4:47 PM EDT Kemar Sahni MD LAB BLOOD ORDERABLES Final Result [facility] [address] * (ABNORMAL) Hepatic Function Panel (10/26/2024 4:42 PM EDT) Total Bilirubin 2.3(H) 0.0 - 1.5 mg/dL 10/26/2024 5:24 PM EDT [facility] Bilirubin, Direct 1.85(H) 0.00 - 0.40 mg/dL 10/26/2024 5:24 PM EDT [facility] AST 374(H) 13 - 39 U/L 10/26/2024 5:24 PM EDT [facility] ALT 458(H) 7 - 52 U/L 10/26/2024 5:24 PM EDT [facility] Alkaline Phosphatase 39 36 - 125 U/L 10/26/2024 5:24 PM EDT [facility] Total Protein 3.8(L) 6.4 - 8.9 g/dL 10/26/2024 5:24 PM EDT [facility] Albumin 3.0(L) 3.5 - 5.7 g/dL 10/26/2024 5:24 PM EDT [facility] Bilirubin, Indirect 0.45 0.00 - 1.10 mg/dL 10/26/2024 5:24 PM EDT [facility] Plasma 10/26/2024 4:42 PM EDT 10/26/2024 4:47 PM EDT Kemar Sahni MD LAB BLOOD ORDERABLES Final Result [facility] [address] [place] * (ABNORMAL) Protime-INR (10/26/2024 4:42 PM EDT) Protime 20.3(H) 12.1 - 15.1 seconds 10/26/2024 5:12 PM EDT [facility] INR 1.7(H) 0.9 - 1.1 10/26/2024 5:12 PM EDT [facility] Comment: RECOMMENDED THERAPEUTIC RANGES USING INR : Stable oral anticoagulant therapy: 2.0 - 3.0 Mechanical prosthetic heart valve: 2.5 - 3.5 Recurrent acute myocardial infarction: 2.5 - 3.5 Plasma 10/26/2024 4:42 PM EDT 10/26/2024 4:47 PM EDT Kemar Sahni MD LAB BLOOD ORDERABLES Final Result Performing Organization Address [facility] Co de Phone Number [facility] [address] [place] * (ABNORMAL) CBC (10/26/2024 4:42 PM EDT) WBC 10.0 3.8 - 10.8 10E3/uL 10/26/2024 5:00 PM EDT [facility] RBC 3.44(L) 4.20 - 5.80 10E6/uL 10/26/2024 5:00 PM EDT [facility] Hemoglobin 10.5(L) 13.2 - 17.1 g/dL 10/26/2024 5:00 PM EDT [facility] Hematocrit 30.2(L) 38.5 - 50.0 % 10/26/2024 5:00 PM EDT [facility] MCV 87.7 80.0 - 100.0 fL 10/26/2024 5:00 PM EDT [facility] MCH 30.6 27.0 - 33.0 pg 10/26/2024 5:00 PM EDT [facility] MCHC 34.8 32.0 - 36.0 g/dL 10/26/2024 5:00 PM EDT [facility] RDW 20.1(H) 11.0 - 15.0 % 10/26/2024 5:00 PM EDT [facility] Platelets 48(L) 140 - 400 10E3/uL 10/26/2024 5:00 PM EDT [facility] Comment:Specimen checked for clots. None detected. MPV 7.9 7.5 - 11.5 fL 10/26/2024 5:00 PM EDT [facility] Whole Blood 10/26/2024 4:42 PM EDT 10/26/2024 4:47 PM EDT Kemar Sahni MD LAB BLOOD ORDERABLES Final Result [facility] [address] * (ABNORMAL) Renal Function Panel w/EGFR (10/26/2024 4:42 PM EDT) Sodium 142 133 - 146 mmol/L 10/26/2024 5:24 PM EDT [facility] Potassium 3.3(L) 3.5 - 5.3 mmol/L 10/26/2024 5:24 PM EDT [facility] Chloride 109 98 - 110 mmol/L 10/26/2024 5:24 PM EDT [facility] CO2 23 21 - 33 mmol/L 10/26/2024 5:24 PM EDT [facility] Anion Gap 10 3 - 16 mmol/L 10/26/2024 5:24 PM EDT [facility] BUN 63(H) 7 - 25 mg/dL 10/26/2024 5:24 PM EDT [facility] Creatinine 2.85(H) 0.60 - 1.30 mg/dL 10/26/2024 5:24 PM EDT [facility] Glucose 127(H) 70 - 100 mg/dL 10/26/2024 5:24 PM EDT [facility] Calcium 8.9 8.6 - 10.3 mg/dL 10/26/2024 5:24 PM EDT [facility] Phosphorus 4.4 2.1 - 4.7 mg/dL 10/26/2024 5:24 PM EDT [facility] Albumin 3.0(L) 3.5 - 5.7 g/dL 10/26/2024 5:24 PM EDT [facility] Osmolality, Calculated 314(H) 278 - 305 mOsm/kg 10/26/2024 5:24 PM EDT [facility] EGFR 28 10/26/2024 5:24 PM EDT [facility] Comment:As [...] Sahni MD LAB BLOOD ORDERABLES Final Result [facility] [address] * (ABNORMAL) POC Glucose Monitoring Device (10/26/2024 3:54 PM EDT) POC Glucose Monitoring Device 126(H) 70 - 100 mg/dL 10/26/2024 3:55 PM EDT [facility] Blood 10/26/2024 3:54 PM EDT 10/26/2024 3:55 PM EDT Semaj Mcnair III, MD POINT OF CARE TEST ORDERABLES Final Result [facility] [address] [place] [facility]. [address] * (ABNORMAL) POC Glucose Monitoring Device (10/26/2024 3:06 PM EDT) [facility] POC Glucose Monitoring Device 144(H) 70 - 100 mg/dL 10/26/2024 3:14 PM EDT [facility] Blood 10/26/2024 3:06 PM EDT 10/26/2024 3:13 PM EDT Semaj Mcnair III, MD POINT OF CARE TEST ORDERABLES Final Result Performing Organization Address [facility] Co de Phone Number [facility] [address] [place] [facility]. [address] * (ABNORMAL) TEG-Bypass/ECMO/Liver HN (Factor function, Platelet/Fibrin Clot Strength w/Clot Breakdown, Heparinase In All Channels) (10/26/2024 3:03 PM EDT) Citrated Kaolin Reaction Time (TEGECMOLIVER) 8.2 4.6 - 9.1 minutes 10/26/2024 4:43 PM EDT [facility] Citrated Kaolin W/Heparinase Reaction Time (TEGECMOLIVER) 8.2 4.3 - 8.3 minutes 10/26/2024 4:43 PM EDT [facility] Citrated Kaolin Maximum Amplitude (TEGECMOLIVER) 41.7(L) 52.0 - 69.0 mm 10/26/2024 4:43 PM EDT [facility] Citrated Functional Fibrinogen W/Heparinase Maximum Amplitude(TEGEC MOLIVER) 11.4(L) 15.0 - 34.0 mm 10/26/2024 4:43 PM EDT [facility] Citrated Rapid Teg W/Heparinase Maximum Amplitude (TEGECMOLIVER) 38.6(L) 53.0 - 69.0 mm 10/26/2024 4:43 PM EDT [facility] Citrated Kaolin w/Heparinase Percent Lysis (TEGECMOLIVER) 0.0 0.0 - 3.2 % 10/26/2024 4:43 PM EDT [facility] Whole Blood (Citrate) 10/26/2024 3:03 PM EDT 10/26/2024 3:10 PM EDT Jani Mooney MD LAB BLOOD ORDERABLES Final Resul t Performing Organization Address City/[facility] Co de Phone Number [facility] [address] * ECG 12 lead (MUSE) (10/26/2024 2:19 PM EDT) 10/26/2024 2:19 PM EDT Narrative MUSE - 10/27/2024 10:09 AM EDT Ventricular Rate: 105 BPM Atrial Rate: 105 BPM P-R Interval: 128 ms QRS Duration: 94 ms QT: 474 ms QTc: 626 ms R [place]: -37 degrees T [place]: 35 degrees Diagnosis Line: Critical Test Result: Long QTc ^ SINUS TACHYCARDIA ^ LEFT AXIS DEVIATION, LEFT ANTERIOR HEMIBLOCK ^ PROLONGED QT ^ ABNORMAL ECG ^ ^ Confirmed by MD HA, [facility] ([facility]) on 10/27/2024 10:09:25 AM Quinten Best MD ECG ORDERABLES Final Result Performing Organization Address [facility] Co de Phone Number MUSE * (ABNORMAL) POC Glucose Monitoring Device (10/26/2024 2:00 PM EDT) [facility] POC Glucose Monitoring Device 183(H) 70 - 100 mg/dL 10/26/2024 2:01 PM EDT [facility] Blood 10/26/2024 2:00 PM EDT 10/26/2024 2:01 PM EDT Semaj Mcnair III, MD POINT OF CARE TEST ORDERABLES Final Result Performing Organization Address [facility] Co de Phone Number [facility] [address] * (ABNORMAL) POC Glucose Monitoring Device (10/26/2024 1:05 PM EDT) POC Glucose Monitoring Device 212(H) 70 - 100 mg/dL 10/26/2024 1:06 PM EDT [facility] Blood 10/26/2024 1:05 PM EDT 10/26/2024 1:06 PM EDT us Semaj Mcnair III, MD POINT OF CARE TEST ORDERABLES Final Result Performing Organization Address City/[facility] Co de Phone Number [facility] [address] [place] * Transfuse Cryoprecipitate Has consent been obtained? Yes; Transfusion Rate: Per dept routine (10/26/2024 12:25 PM EDT) us Shay Sifuentes MD NURSING TREATMENT ORDERABLES - BLOOD ADMIN Final Result Performing Organization Address [facility] de Phone Number EXTERNAL * Transfuse Cryoprecipitate Has consent been obtained? Yes; Transfusion Rate: Per dept routine, 1 Units (10/26/2024 12:25 PM EDT) us Shay Sifuentes MD NURSING TREATMENT ORDERABLES - BLOOD ADMIN Final Result Performing Organization Address [facility] de Phone Number EXTERNAL * (ABNORMAL) POC Glucose Monitoring Device (10/26/2024 12:06 PM EDT) POC Glucose Monitoring Device 226(H) 70 - 100 mg/dL 10/26/2024 12:07 PM EDT [facility] Blood 10/26/2024 12:0 6 PM EDT 10/26/2024 12:07 PM EDT us Semaj Mcnair III, MD POINT OF CARE TEST ORDERABLES Final Result Performing Organization Address [facility] de Phone Number [facility] [address] * Transfuse Cryoprecipitate Transfusion Rate: Per dept routine (10/26/2024 12:01 PM EDT) us John Pina MD NURSING TREATMENT ORDERABLES - BLOOD ADMIN Final Result Performing Organization Address [facility] de Phone Number EXTERNAL * Transfuse Cryoprecipitate Transfusion Rate: Per dept routine, 1 Units (10/26/2024 12:01 PM EDT) John Pina MD NURSING TREATMENT ORDERABLES - BLOOD ADMIN Final Result Performing Organization Address [facility] de Phone Number EXTERNAL * Lactic Acid (10/26/2024 10:48 AM EDT) Lactate 1.2 0.5 - 2.2 mmol/L 10/26/2024 11:27 AM EDT [facility] Plasma 10/26/2024 10:4 8 AM EDT 10/26/2024 10:53 AM EDT Kemar Sahni MD LAB BLOOD ORDERABLES Final Result Performing Organization Address [facility] de Phone Number [facility] [address] [place] * Magnesium (10/26/2024 10:48 AM EDT) Magnesium 2.0 1.5 - 2.5 mg/dL 10/26/2024 11:26 AM EDT [facility] Plasma 10/26/2024 10:4 8 AM EDT 10/26/2024 10:53 AM EDT Result [facility] Kemar Sahni MD LAB BLOOD ORDERABLES Final Result Performing Organization Address [facility] Co de Phone Number [facility] [address] * (ABNORMAL) Hepatic Function Panel (10/26/2024 10:48 AM EDT) Total Bilirubin 5.9(H) 0.0 - 1.5 mg/dL 10/26/2024 11:26 AM EDT [facility] Bilirubin, Direct 4.74(H) 0.00 - 0.40 mg/dL 10/26/2024 11:26 AM EDT [facility] AST 872(H) 13 - 39 U/L 10/26/2024 11:26 AM EDT [facility] ALT 736(H) 7 - 52 U/L 10/26/2024 11:26 AM EDT [facility] Alkaline Phosphatase 56 36 - 125 U/L 10/26/2024 11:26 AM EDT [facility] Total Protein 3.5(L) 6.4 - 8.9 g/dL 10/26/2024 11:26 AM EDT [facility] Albumin 2.5(L) 3.5 - 5.7 g/dL 10/26/2024 11:26 AM EDT [facility] Bilirubin, Indirect 1.16(H) 0.00 - 1.10 mg/dL 10/26/2024 11:26 AM EDT [facility] Plasma 10/26/2024 10:4 8 AM EDT 10/26/2024 10:53 AM EDT Kemar Sahni MD LAB BLOOD ORDERABLES Final Result [facility] [address] * (ABNORMAL) Protime-INR (10/26/2024 10:48 AM EDT) Protime 23.0(H) 12.1 - 15.1 seconds 10/26/2024 11:26 AM EDT [facility] INR 2.0(H) 0.9 - 1.1 10/26/2024 11:26 AM EDT [facility] Comment: RECOMMENDED THERAPEUTIC RANGES USING INR : Stable oral anticoagulant therapy: 2.0 - 3.0 Mechanical prosthetic heart valve: 2.5 - 3.5 Recurrent acute myocardial infarction: 2.5 - 3.5 Plasma 10/26/2024 10:4 8 AM EDT 10/26/2024 10:53 AM EDT Kemar Sahni MD LAB BLOOD ORDERABLES Final Result [facility] [address] * (ABNORMAL) CBC (10/26/2024 10:48 AM EDT) WBC 17.3(H) 3.8 - 10.8 10E3/uL 10/26/2024 11:14 AM EDT [facility] RBC 4.22 4.20 - 5.80 10E6/uL 10/26/2024 11:14 AM EDT [facility] Hemoglobin 12.8(L) 13.2 - 17.1 g/dL 10/26/2024 11:14 AM EDT [facility] Hematocrit 37.2(L) 38.5 - 50.0 % 10/26/2024 11:14 AM EDT [facility] MCV 88.3 80.0 - 100.0 fL 10/26/2024 11:14 AM EDT [facility] MCH 30.4 27.0 - 33.0 pg 10/26/2024 11:14 AM EDT [facility] MCHC 34.4 32.0 - 36.0 g/dL 10/26/2024 11:14 AM EDT [facility] RDW 20.8(H) 11.0 - 15.0 % 10/26/2024 11:14 AM EDT [facility] Platelets 109(L) 140 - 400 10E3/uL 10/26/2024 11:14 AM EDT [facility] MPV 7.5 7.5 - 11.5 fL 10/26/2024 11:14 AM EDT [facility] Whole Blood 10/26/2024 10:4 8 AM EDT 10/26/2024 10:53 AM EDT us Kemar Sahni MD LAB BLOOD ORDERABLES Final Result [facility] [address] [place] [facility]. [address] * (ABNORMAL) Blood gas, arterial (10/26/2024 10:48 AM EDT) O2 Sat, Arterial 97 10/26/2024 10:54 AM EDT [facility] FIO2 35% 10/26/2024 10:54 AM EDT [facility] pH, Arterial 7.37 7.35 - 7.45 10/26/2024 10:54 AM EDT [facility] pCO2, Arterial 36 35 - 45 mm Hg 10/26/2024 10:54 AM EDT [facility] pO2, Arterial 91 80 - 100 mm Hg 10/26/2024 10:54 AM EDT [facility] HCO3, Arterial 22 22 - 26 mmol/L 10/26/2024 10:54 AM EDT [facility] CO2 Content,Arteri al 22(L) 23 - 27 mmol/L 10/26/2024 10:54 AM EDT [facility] Base Excess, Arterial -3.9(L) -2.0 - 3.0 mmol/L 10/26/2024 10:54 AM EDT [facility] %HBO2, Arterial 94.8(L) 95.0 - 98.0 % 10/26/2024 10:54 AM EDT [facility] Carboxyhemoglo bin, Arterial 1.9 % 10/26/2024 10:54 AM EDT [facility] Comment: CARBOXYHEMOGLOBIN (CO) REFERENCE RANGES: Non-Smokers: <2 % Smokers: <8 % TOXIC: >20 % Methemoglobin, Arterial 0.7 0.0 - 1.5 % 10/26/2024 10:54 AM EDT [facility] Reduced hemoglobin, Arterial 2.5 0.0 - 5.0 % 10/26/2024 10:54 AM EDT [facility] Blood, Arterial 10/26/2024 1 0:48 AM EDT 10/26/2024 10:52 AM EDT us Shay Sifuentes MD LAB BLOOD ORDERABLES Final Resu lt [facility] [address] [place] [address], [facility] * (ABNORMAL) Renal Function Panel w/EGFR (10/26/2024 10:48 AM EDT) Sodium 139 133 - 146 mmol/L 10/26/2024 11:26 AM EDT [facility] Potassium 2.9(LL) 3.5 - 5.3 mmol/L 10/26/2024 11:26 AM EDT [facility] Comment:K CRITICAL VALUE WAS PREVIOUSLY CALLED Chloride 107 98 - 110 mmol/L 10/26/2024 11:26 AM EDT [facility] CO2 22 21 - 33 mmol/L 10/26/2024 11:26 AM EDT [facility] Anion Gap 10 3 - 16 mmol/L 10/26/2024 11:26 AM EDT [facility] BUN 61(H) 7 - 25 mg/dL 10/26/2024 11:26 AM EDT [facility] Creatinine 2.78(H) 0.60 - 1.30 mg/dL 10/26/2024 11:26 AM EDT [facility] Glucose 253(H) 70 - 100 mg/dL 10/26/2024 11:26 AM EDT [facility] Calcium 8.8 8.6 - 10.3 mg/dL 10/26/2024 11:26 AM EDT [facility] Phosphorus 4.1 2.1 - 4.7 mg/dL 10/26/2024 11:26 AM EDT [facility] Albumin 2.5(L) 3.5 - 5.7 g/dL 10/26/2024 11:26 AM EDT [facility] Osmolality, Calculated 314(H) 278 - 305 mOsm/kg 10/26/2024 11:26 AM EDT [facility] EGFR 28 10/26/2024 11:26 AM EDT [facility] Comment:As [...] BLOOD ORDERABLES Final Result Performing Organization Address [facility]/ZIP Co de Phone Number [facility] [address] [place] * (ABNORMAL) POC Glucose Monitoring Device (10/26/2024 10:47 AM EDT) POC Glucose Monitoring Device 234(H) 70 - 100 mg/dL 10/26/2024 10:48 AM EDT [facility] Blood 10/26/2024 10:4 7 AM EDT 10/26/2024 10:48 AM EDT Semaj Mcnair III, MD POINT OF CARE TEST ORDERABLES Final Result Performing Organization Address [facility] Co de Phone Number [facility] [address] [facility]. [address] * CARISA Rhythm Strip - Scan (10/26/2024 10:45 AM EDT) us Scanning Uchhim SCAN DOCS - NO RESULTS Final Res ult * (ABNORMAL) POC Glucose Monitoring Device (10/26/2024 10:08 AM EDT) POC Glucose Monitoring Device 235(H) 70 - 100 mg/dL 10/26/2024 10:09 AM EDT [facility] Blood 10/26/2024 10:0 8 AM EDT 10/26/2024 10:09 AM EDT Semaj Mcnair III, MD POINT OF CARE TEST ORDERABLES Final Result Performing Organization Address [facility] Co de Phone Number [facility] [address] [place] * (ABNORMAL) POC Glucose Monitoring Device (10/26/2024 8:57 AM EDT) POC Glucose Monitoring Device 232(H) 70 - 100 mg/dL 10/26/2024 8:59 AM EDT [facility] Blood 10/26/2024 8:57 AM EDT 10/26/2024 8:58 AM EDT Semaj Mcnair III, MD POINT OF CARE TEST ORDERABLES Final Result Performing Organization Address City/[facility] Co de Phone Number [facility] [address] [place] [address], [facility] * ECG 12 lead (MUSE) (10/26/2024 8:16 AM EDT) 10/26/2024 8:16 AM EDT Narrative MUSE - 10/27/2024 10:09 AM EDT Ventricular Rate: 112 BPM QRS Duration: 96 ms QT: 452 ms QTc: 616 ms R [place]: -41 degrees T [place]: 40 degrees Diagnosis Line: Critical Test Result: Long QTc ^ SINUS TACHYCARDIA OCCASIONAL PREMATURE VENTRICULAR COMPLEXES ^ LEFT AXIS DEVIATION, LEFT ANTERIOR HEMIBLOCK ^ PROLONGED QT ^ ABNORMAL ECG ^ ^ Confirmed by MD HA, [facility] ([id number]) on 10/27/2024 10:09:18 AM Shay Sifuentes MD ECG ORDERABLES Final Result Performing Organization Address [facility] Co de Phone Number MUSE [...] - 100 mg/dL 10/26/2024 8:01 AM EDT [facility] Blood 10/26/2024 7:59 AM EDT 10/26/2024 8:00 AM EDT Semaj Mcnair III, MD POINT OF CARE TEST ORDERABLES Final Result [facility] [address] [place] [address], [facility] * (ABNORMAL) TEG-Bypass/ECMO/Liver HN (Factor function, Platelet/Fibrin Clot Strength w/Clot Breakdown, Heparinase In All Channels) (10/26/2024 7:59 AM EDT) Citrated Kaolin Reaction Time (TEGECMOLIVER) 8.2 4.6 - 9.1 minutes 10/26/2024 10:36 AM EDT [facility] Citrated Kaolin W/Heparinase Reaction Time (TEGECMOLIVER) 8.1 4.3 - 8.3 minutes 10/26/2024 10:36 AM EDT [facility] Citrated Kaolin Maximum Amplitude (TEGECMOLIVER) 46.8(L) 52.0 - 69.0 mm 10/26/2024 10:36 AM EDT [facility] Citrated Functional Fibrinogen W/Heparinase Maximum Amplitude(TEGEC MOLIVER) 10.5(L) 15.0 - 34.0 mm 10/26/2024 10:36 AM EDT [facility] Citrated Rapid Teg W/Heparinase Maximum Amplitude (TEGECMOLIVER) 45.5(L) 53.0 - 69.0 mm 10/26/2024 10:36 AM EDT [facility] Citrated Kaolin w/Heparinase Percent Lysis (TEGECMOLIVER) 0.0 0.0 - 3.2 % 10/26/2024 10:36 AM EDT [facility] Whole Blood (Citrate) 10/26/2024 7:59 AM EDT 10/26/2024 8:05 AM EDT us Shay Sifuentes MD LAB BLOOD ORDERABLES Final Resu lt [facility] [address] [place], [place] [address] * (ABNORMAL) POC Glucose Monitoring Device (10/26/2024 6:12 AM EDT) POC Glucose Monitoring Device 196(H) 70 - 100 mg/dL 10/26/2024 6:13 AM EDT [facility] Blood 10/26/2024 6:12 AM EDT 10/26/2024 6:13 AM EDT us Semaj Mcnair III, MD POINT OF CARE TEST ORDERABLES Final Result [facility] [address] [place] * Lactic Acid (10/26/2024 6:10 AM EDT) Lactate 1.2 0.5 - 2.2 mmol/L 10/26/2024 6:39 AM EDT [facility] Plasma 10/26/2024 6:10 AM EDT 10/26/2024 6:19 AM EDT Sveta Judge MD LAB BLOOD ORDERABLES Final Resu lt Performing Organization Address [facility] Co de Phone Number [facility] [address] [place] * (ABNORMAL) Fibrinogen (10/26/2024 6:10 AM EDT) Fibrinogen 160(L) 218 - 406 mg/dL 10/26/2024 6:41 AM EDT [facility] Plasma 10/26/2024 6:10 AM EDT 10/26/2024 6:26 AM EDT Sveta Judge MD LAB BLOOD ORDERABLES Final Resu lt Performing Organization Address City/[facility]/ZIP Co de Phone Number [facility] [address] [place] * (ABNORMAL) Protime-INR (10/26/2024 6:10 AM EDT) Protime 25.0(H) 12.1 - 15.1 seconds 10/26/2024 6:41 AM EDT [facility] INR 2.2(H) 0.9 - 1.1 10/26/2024 6:41 AM EDT [facility] Comment: RECOMMENDED THERAPEUTIC RANGES USING INR : Stable oral anticoagulant therapy: 2.0 - 3.0 Mechanical prosthetic heart valve: 2.5 - 3.5 Recurrent acute myocardial infarction: 2.5 - 3.5 Plasma 10/26/2024 6:10 AM EDT 10/26/2024 6:26 AM EDT us Sveta Judge MD LAB BLOOD ORDERABLES Final Resu lt [facility] [address] [place] [address], [facility] * (ABNORMAL) Blood gas, arterial (10/26/2024 6:10 AM EDT) O2 Sat, Arterial 98 10/26/2024 6:23 AM EDT [facility] FIO2 60 10/26/2024 6:23 AM EDT [facility] pH, Arterial 7.27(L) 7.35 - 7.45 10/26/2024 6:23 AM EDT [facility] pCO2, Arterial 47(H) 35 - 45 mm Hg 10/26/2024 6:23 AM EDT [facility] pO2, Arterial 127(H) 80 - 100 mm Hg 10/26/2024 6:23 AM EDT [facility] HCO3, Arterial 21(L) 22 - 26 mmol/L 10/26/2024 6:23 AM EDT [facility] CO2 Content,Arteri al 23 23 - 27 mmol/L 10/26/2024 6:23 AM EDT [facility] Base Excess, Arterial -5.4(L) -2.0 - 3.0 mmol/L 10/26/2024 6:23 AM EDT [facility] %HBO2, Arterial 94.6(L) 95.0 - 98.0 % 10/26/2024 6:23 AM EDT [facility] Carboxyhemoglo bin, Arterial 2.0 % 10/26/2024 6:23 AM EDT [facility] Comment: CARBOXYHEMOGLOBIN (CO) REFERENCE RANGES: Non-Smokers: <2 % Smokers: <8 % TOXIC: >20 % Methemoglobin, Arterial 1.6(H) 0.0 - 1.5 % 10/26/2024 6:23 AM EDT [facility] Reduced hemoglobin, Arterial 1.8 0.0 - 5.0 % 10/26/2024 6:23 AM EDT [facility] Blood, Arterial 10/26/2024 6 :10 AM EDT 10/26/2024 6:20 AM EDT Sveta Judge MD LAB BLOOD ORDERABLES Final Resu lt [facility] [address] * Magnesium (10/26/2024 6:10 AM EDT) Magnesium 1.5 1.5 - 2.5 mg/dL 10/26/2024 7:09 AM EDT [facility] Plasma 10/26/2024 6:10 AM EDT 10/26/2024 6:23 AM EDT Sveta Judge MD LAB BLOOD ORDERABLES Final Resu lt Performing Organization Address [facility] Co de Phone Number [facility] [address] * (ABNORMAL) Hepatic Function Panel (10/26/2024 6:10 AM EDT) Total Bilirubin 6.2(H) 0.0 - 1.5 mg/dL 10/26/2024 7:11 AM EDT [facility] Bilirubin, Direct 5.26(H) 0.00 - 0.40 mg/dL 10/26/2024 7:11 AM EDT [facility] AST 1,071(H) 13 - 39 U/L 10/26/2024 7:11 AM EDT [facility] ALT 805(H) 7 - 52 U/L 10/26/2024 7:11 AM EDT [facility] Alkaline Phosphatase 55 36 - 125 U/L 10/26/2024 7:11 AM EDT [facility] Total Protein <3.0(L) 6.4 - 8.9 g/dL 10/26/2024 7:11 AM EDT [facility] Albumin 1.9(L) 3.5 - 5.7 g/dL 10/26/2024 7:11 AM EDT [facility] Bilirubin, Indirect 0.94 0.00 - 1.10 mg/dL 10/26/2024 7:11 AM EDT [facility] Plasma 10/26/2024 6:10 AM EDT 10/26/2024 6:23 AM EDT us Sveta Judge MD LAB BLOOD ORDERABLES Final Resu lt [facility] [address] [place] [address] * (ABNORMAL) Renal Function Panel w/EGFR (10/26/2024 6:10 AM EDT) Sodium 141 133 - 146 mmol/L 10/26/2024 7:09 AM EDT [facility] Potassium 2.8(LL) 3.5 - 5.3 mmol/L 10/26/2024 7:09 AM EDT [facility] Comment:Critical value previ ously called. Chloride 106 98 - 110 mmol/L 10/26/2024 7:09 AM EDT [facility] CO2 25 21 - 33 mmol/L 10/26/2024 7:09 AM EDT [facility] Anion Gap 10 3 - 16 mmol/L 10/26/2024 7:09 AM EDT [facility] BUN 57(H) 7 - 25 mg/dL 10/26/2024 7:09 AM EDT [facility] Creatinine 2.70(H) 0.60 - 1.30 mg/dL 10/26/2024 7:09 AM EDT [facility] Glucose 210(H) 70 - 100 mg/dL 10/26/2024 7:09 AM EDT [facility] Calcium 8.7 8.6 - 10.3 mg/dL 10/26/2024 7:09 AM EDT [facility] Phosphorus 5.4(H) 2.1 - 4.7 mg/dL 10/26/2024 7:09 AM EDT [facility] Albumin 1.9(L) 3.5 - 5.7 g/dL 10/26/2024 7:11 AM EDT [facility] Osmolality, Calculated 314(H) 278 - 305 mOsm/kg 10/26/2024 7:09 AM EDT [facility] EGFR 29 10/26/2024 7:09 AM EDT [facility] Comment:As [...] Final Resu lt [facility] [address] [place] [address], [facility] * (ABNORMAL) CBC (10/26/2024 6:10 AM EDT) WBC 14.8(H) 3.8 - 10.8 10E3/uL 10/26/2024 6:46 AM EDT [facility] RBC 4.04(L) 4.20 - 5.80 10E6/uL 10/26/2024 6:46 AM EDT [facility] Hemoglobin 12.7(L) 13.2 - 17.1 g/dL 10/26/2024 6:46 AM EDT [facility] Hematocrit 35.9(L) 38.5 - 50.0 % 10/26/2024 6:46 AM EDT [facility] MCV 89.0 80.0 - 100.0 fL 10/26/2024 6:46 AM EDT [facility] MCH 31.3 27.0 - 33.0 pg 10/26/2024 6:46 AM EDT [facility] MCHC 35.2 32.0 - 36.0 g/dL 10/26/2024 6:46 AM EDT [facility] RDW 19.7(H) 11.0 - 15.0 % 10/26/2024 6:46 AM EDT [facility] Platelets 107(L) 140 - 400 10E3/uL 10/26/2024 6:46 AM EDT [facility] MPV 7.4(L) 7.5 - 11.5 fL 10/26/2024 6:46 AM EDT [facility] Whole Blood 10/26/2024 6:10 AM EDT 10/26/2024 6:26 AM EDT Sveta Judge MD LAB BLOOD ORDERABLES Final Resu lt Performing Organization Address [facility] Co de Phone Number [facility] [address] [place] * (ABNORMAL) POC INR (10/26/2024 5:16 AM EDT) Prothrombin Time INR, POC 2.4(H) 0.8 - 1.4 10/27/2024 6:51 AM EDT [facility] Comment: Test results may vary using [...] TEST ORDERABLES Final Result Performing Organization Address [facility] Co de Phone Number [facility] [address] [place] * POC Sample Type (10/26/2024 5:14 AM EDT) POC Sample Type Arterial 10/26/2024 5:31 AM EDT [facility] Blood, Arterial 10/26/2024 5 :14 AM EDT 10/26/2024 5:31 AM EDT us Semaj Mcnair III, MD POINT OF CARE TEST ORDERABLES Final Result Performing Organization Address City/[facility]/ZIP Co de Phone Number [facility] [address] [facility]. [address] * POC Anion Gap (10/26/2024 5:14 AM EDT) Pathologist [facility] POC Anion Gap, Arterial 12 3 - 16 mmol/L 10/26/2024 5:31 AM EDT [facility] Blood, Arterial 10/26/2024 5 :14 AM EDT 10/26/2024 5:31 AM EDT us Semaj Mcnair III, MD POINT OF CARE TEST ORDERABLES Final Result Performing Organization Address [facility] Co de Phone Number [facility] [address] * POC Chloride (10/26/2024 5:14 AM EDT) Pathologist [facility] POC Chloride 104 98 - 110 mmol/L 10/26/2024 5:31 AM EDT [facility] Blood, Arterial 10/26/2024 5 :14 AM EDT 10/26/2024 5:31 AM EDT us Semaj Mcnair III, MD POINT OF CARE TEST ORDERABLES Final Result Performing Organization Address City/[facility] Co de Phone Number [facility] [address] [facility]. [address] * (ABNORMAL) POC Hemoglobin (10/26/2024 5:14 AM EDT) Pathologist [facility] POC Hemoglobin 9.5(L) 14.0 - 18.0 g/dL 10/26/2024 5:31 AM EDT [facility] Blood, Arterial 10/26/2024 5 :14 AM EDT 10/26/2024 5:31 AM EDT us Semaj Mcnair III, MD POINT OF CARE TEST ORDERABLES Final Result [facility] [address] [place] [facility]. [address] * (ABNORMAL) POC hematocrit (10/26/2024 5:14 AM EDT) POC Hematocrit 28.0(L) 40 - 52 % 10/26/2024 5:31 AM EDT [facility] Blood, Arterial 10/26/2024 5 :14 AM EDT 10/26/2024 5:31 AM EDT us Semaj Mcnair III, MD POINT OF CARE TEST ORDERABLES Final Result Performing Organization Address [facility] Co de Phone Number [facility] [address] [facility]. [address] * POC Lactate (10/26/2024 5:14 AM EDT) POC Lactate 1.76 0.50 - 2.20 mmol/L 10/26/2024 5:31 AM EDT [facility] Blood, Arterial 10/26/2024 5 :14 AM EDT 10/26/2024 5:31 AM EDT us Semaj Mcnair III, MD POINT OF CARE TEST ORDERABLES Final Result Performing Organization Address City/[facility] Co de Phone Number [facility] [address] [place] * (ABNORMAL) POC Glucose (10/26/2024 5:14 AM EDT) POC Glucose, Arterial 183(H) 70 - 100 mg/dL 10/26/2024 5:31 AM EDT [facility] Blood, Arterial 10/26/2024 5 :14 AM EDT 10/26/2024 5:31 AM EDT us Semaj Mcnair III, MD POINT OF CARE TEST ORDERABLES Final Result Performing Organization Address City/[facility]/ZIP Co de Phone Number [facility] [address] [facility]. [address] * (ABNORMAL) POC Ionized Calcium (10/26/2024 5:14 AM EDT) POC Ionized Calcium 5.50(H) 4.50 - 5.30 mg/dL 10/26/2024 5:31 AM EDT [facility] Blood, Arterial 10/26/2024 5 :14 AM EDT 10/26/2024 5:31 AM EDT us Semaj Mcnair III, MD POINT OF CARE TEST ORDERABLES Final Result Performing Organization Address [facility] Co de Phone Number [facility] [address] [facility]. [address] * (ABNORMAL) POC Potassium (10/26/2024 5:14 AM EDT) Pathologist [facility] POC Potassium 2.8(LL) 3.5 - 5.3 mmol/L 10/26/2024 5:31 AM EDT [facility] Blood, Arterial 10/26/2024 5 :14 AM EDT 10/26/2024 5:31 AM EDT us Semaj Mcnair III, MD POINT OF CARE TEST ORDERABLES Final Result Performing Organization Address City/[facility] Co de Phone Number [facility] [address]. [address] * POC Sodium (10/26/2024 5:14 AM EDT) Pathologist [facility] POC Sodium 138 136 - 146 mmol/L 10/26/2024 5:31 AM EDT [facility] Blood, Arterial 10/26/2024 5 :14 AM EDT 10/26/2024 5:31 AM EDT us Semaj Mcnair III, MD POINT OF CARE TEST ORDERABLES Final Result Performing Organization Address City/[facility] Co de Phone Number [facility] [address]. [address] * POC TCO2 (10/26/2024 5:14 AM EDT) POC TCO2, Arterial 23 23 - 27 mmol/L 10/26/2024 5:31 AM EDT [facility] Blood, Arterial 10/26/2024 5 :14 AM EDT 10/26/2024 5:31 AM EDT us Semaj Mcnair III, MD POINT OF CARE TEST ORDERABLES Final Result Performing Organization Address [facility] Co de Phone Number [facility] [address] * (ABNORMAL) POC O2 SAT (10/26/2024 5:14 AM EDT) POC O2 Saturation, Arterial 99(H) 95 - 98 % 10/26/2024 5:31 AM EDT [facility] Blood, Arterial 10/26/2024 5 :14 AM EDT 10/26/2024 5:31 AM EDT us Semaj Mcnair III, MD POINT OF CARE TEST ORDERABLES Final Result Performing Organization Address [facility] Co de Phone Number [facility] [address] * (ABNORMAL) POC Base Excess (10/26/2024 5:14 AM EDT) POC Base Excess, Arterial -5(L) -2 - 3 mmol/L 10/26/2024 5:31 AM EDT [facility] Blood, Arterial 10/26/2024 5 :14 AM EDT 10/26/2024 5:31 AM EDT us Semaj Mcnair III, MD POINT OF CARE TEST ORDERABLES Final Result Performing Organization Address City/[facility] Co de Phone Number [facility] [address] [place] [address]. [address] * POC HCO3 (10/26/2024 5:14 AM EDT) POC HCO3, Arterial 22 22 - 26 mmol/L 10/26/2024 5:31 AM EDT [facility] Blood, Arterial 10/26/2024 5 :14 AM EDT 10/26/2024 5:31 AM EDT us Semaj Mcnair III, MD POINT OF CARE TEST ORDERABLES Final Result Performing Organization Address [facility] Co de Phone Number [facility] [address] [place] [address]. [address] * (ABNORMAL) POC PO2 (10/26/2024 5:14 AM EDT) POC pO2, Arterial 133(H) 80 - 100 mm Hg 10/26/2024 5:31 AM EDT [facility] Blood, Arterial 10/26/2024 5 :14 AM EDT 10/26/2024 5:31 AM EDT us Semaj Mcnair III, MD POINT OF CARE TEST ORDERABLES Final Result Performing Organization Address [facility] Co de Phone Number [address] * POC PCO2 (10/26/2024 5:14 AM EDT) POC pCO2, Arterial 45 35 - 45 mm Hg 10/26/2024 5:31 AM EDT [facility] Blood, Arterial 10/26/2024 5 :14 AM EDT 10/26/2024 5:31 AM EDT us Semaj Mcnair III, MD POINT OF CARE TEST ORDERABLES Final Result [facility] [address] * (ABNORMAL) POC pH (10/26/2024 5:14 AM EDT) POC pH, Arterial 7.29(L) 7.35 - 7.45 10/26/2024 5:31 AM EDT [facility] Blood, Arterial 10/26/2024 5 :14 AM EDT 10/26/2024 5:31 AM EDT Semaj Mcnair III, MD POINT OF CARE TEST ORDERABLES Final Result Performing Organization Address [facility] Co de Phone Number [facility] [address] * Transfuse Cryoprecipitate (10/26/2024 4:37 AM EDT) Result [facility] Eber Quinones MD NURSING TREATMENT ORDERA BLES - BLOOD ADMIN Final Result * Transfuse Cryoprecipitate (10/26/2024 4:37 AM EDT) Result [facility] Eber Quinones MD NURSING TREATMENT ORDERA BLES - BLOOD ADMIN Final Result * (ABNORMAL) POC INR (10/26/2024 4:27 AM EDT) Prothrombin Time INR, POC 2.3(H) 0.8 - 1.4 10/27/2024 6:51 AM EDT [facility] Comment: Test results may vary using [...] TEST ORDERABLES Final Result Performing Organization Address City/[facility]/ZIP Co de Phone Number [facility] [address] * POC Sample Type (10/26/2024 4:24 AM EDT) POC Sample Type Arterial 10/26/2024 5:09 AM EDT [facility] Blood, Arterial 10/26/2024 4 :24 AM EDT 10/26/2024 5:09 AM EDT Semaj Mcnair III, MD POINT OF CARE TEST ORDERABLES Final Result Performing Organization Address [facility] Co de Phone Number [facility] [address] * POC Anion Gap (10/26/2024 4:24 AM EDT) POC Anion Gap, Arterial 14 3 - 16 mmol/L 10/26/2024 5:09 AM EDT [facility] Blood, Arterial 10/26/2024 4 :24 AM EDT 10/26/2024 5:09 AM EDT Semaj Mcnair III, MD POINT OF CARE TEST ORDERABLES Final Result Performing Organization Address [facility] Co de Phone Number [facility] [address] * POC Chloride (10/26/2024 4:24 AM EDT) POC Chloride 103 98 - 110 mmol/L 10/26/2024 5:09 AM EDT [facility] Blood, Arterial 10/26/2024 4 :24 AM EDT 10/26/2024 5:09 AM EDT us Semaj Mcnair III, MD POINT OF CARE TEST ORDERABLES Final Result Performing Organization Address City/[facility]/ZIP Co de Phone Number [facility] [address] * (ABNORMAL) POC Hemoglobin (10/26/2024 4:24 AM EDT) POC Hemoglobin 10.3(L) 14.0 - 18.0 g/dL 10/26/2024 5:09 AM EDT [facility] Blood, Arterial 10/26/2024 4 :24 AM EDT 10/26/2024 5:09 AM EDT Semaj Mcnair III, MD POINT OF CARE TEST ORDERABLES Final Result [facility] [address] * (ABNORMAL) POC hematocrit (10/26/2024 4:24 AM EDT) Pathologist [facility] POC Hematocrit 30.0(L) 40 - 52 % 10/26/2024 5:09 AM EDT [facility] Blood, Arterial 10/26/2024 4 :24 AM EDT 10/26/2024 5:09 AM EDT us Semaj Mcnair III, MD POINT OF CARE TEST ORDERABLES Final Result [facility] [address] * (ABNORMAL) POC Lactate (10/26/2024 4:24 AM EDT) POC Lactate 2.43(H) 0.50 - 2.20 mmol/L 10/26/2024 5:09 AM EDT [facility] Blood, Arterial 10/26/2024 4 :24 AM EDT 10/26/2024 5:09 AM EDT us Semaj Mcnair III, MD POINT OF CARE TEST ORDERABLES Final Result [facility] [address] * (ABNORMAL) POC Glucose (10/26/2024 4:24 AM EDT) POC Glucose, Arterial 185(H) 70 - 100 mg/dL 10/26/2024 5:09 AM EDT [facility] Blood, Arterial 10/26/2024 4 :24 AM EDT 10/26/2024 5:09 AM EDT us Semaj Mcnair III, MD POINT OF CARE TEST ORDERABLES Final Result [facility] [address] * POC Ionized Calcium (10/26/2024 4:24 AM EDT) POC Ionized Calcium 5.20 4.50 - 5.30 mg/dL 10/26/2024 5:09 AM EDT [facility] Blood, Arterial 10/26/2024 4 :24 AM EDT 10/26/2024 5:09 AM EDT us Semaj Mcnair III, MD POINT OF CARE TEST ORDERABLES Final Result [facility] [address] * (ABNORMAL) POC Potassium (10/26/2024 4:24 AM EDT) POC Potassium 2.8(LL) 3.5 - 5.3 mmol/L 10/26/2024 5:09 AM EDT [facility] Blood, Arterial 10/26/2024 4 :24 AM EDT 10/26/2024 5:09 AM EDT us Semaj Mcnair III, MD POINT OF CARE TEST ORDERABLES Final Result [facility] [address] * POC Sodium (10/26/2024 4:24 AM EDT) POC Sodium 139 136 - 146 mmol/L 10/26/2024 5:09 AM EDT [facility] Blood, Arterial 10/26/2024 4 :24 AM EDT 10/26/2024 5:09 AM EDT Semaj Mcnair III, MD POINT OF CARE TEST ORDERABLES Final Result [facility] [address] * POC TCO2 (10/26/2024 4:24 AM EDT) POC TCO2, Arterial 23 23 - 27 mmol/L 10/26/2024 5:09 AM EDT [facility] Blood, Arterial 10/26/2024 4 :24 AM EDT 10/26/2024 5:09 AM EDT Semaj Mcnair III, MD POINT OF CARE TEST ORDERABLES Final Result Performing Organization Address City/[facility]/ZIP Co de Phone Number [facility] [address] * POC O2 SAT (10/26/2024 4:24 AM EDT) POC O2 Saturation, Arterial 96 95 - 98 % 10/26/2024 5:09 AM EDT [facility] Blood, Arterial 10/26/2024 4 :24 AM EDT 10/26/2024 5:09 AM EDT Semaj Mcnair III, MD POINT OF CARE TEST ORDERABLES Final Result [facility] [address] * (ABNORMAL) POC Base Excess (10/26/2024 4:24 AM EDT) POC Base Excess, Arterial -5(L) -2 - 3 mmol/L 10/26/2024 5:09 AM EDT [facility] Blood, Arterial 10/26/2024 4 :24 AM EDT 10/26/2024 5:09 AM EDT us Semaj Mcnair III, MD POINT OF CARE TEST ORDERABLES Final Result [facility] [address] [place] [address]. [address] * POC HCO3 (10/26/2024 4:24 AM EDT) POC HCO3, Arterial 22 22 - 26 mmol/L 10/26/2024 5:09 AM EDT [facility] Blood, Arterial 10/26/2024 4 :24 AM EDT 10/26/2024 5:09 AM EDT Semaj Mcnair III, MD POINT OF CARE TEST ORDERABLES Final Result Performing Organization Address City/[facility] Co de Phone Number [facility] [address] [place] [address]. [address] * POC PO2 (10/26/2024 4:24 AM EDT) POC pO2, Arterial 93 80 - 100 mm Hg 10/26/2024 5:09 AM EDT [facility] Blood, Arterial 10/26/2024 4 :24 AM EDT 10/26/2024 5:09 AM EDT us Semaj Mcnair III, MD POINT OF CARE TEST ORDERABLES Final Result Performing Organization Address City/[facility] Co de Phone Number [facility] [address] [place] [address]. [address] * POC PCO2 (10/26/2024 4:24 AM EDT) POC pCO2, Arterial 44 35 - 45 mm Hg 10/26/2024 5:09 AM EDT [facility] Blood, Arterial 10/26/2024 4 :24 AM EDT 10/26/2024 5:09 AM EDT Semaj Mcnair III, MD POINT OF CARE TEST ORDERABLES Final Result Performing Organization Address City/[facility]/ZIP Co de Phone Number [facility] [address] * (ABNORMAL) POC pH (10/26/2024 4:24 AM EDT) POC pH, Arterial 7.30(L) 7.35 - 7.45 10/26/2024 5:09 AM EDT [facility] Blood, Arterial 10/26/2024 4 :24 AM EDT 10/26/2024 5:09 AM EDT Semaj Mcnair III, MD POINT OF CARE TEST ORDERABLES Final Result Performing Organization Address [facility] Co de Phone Number [facility] [address] * Transfuse Platelets (10/26/2024 4:14 AM EDT) Result [facility] Ben Blake MD NURSING TREATMENT ORDERABLES - BLOOD ADMIN Final Result * Transfuse Fresh Frozen Plasma (10/26/2024 3:47 AM EDT) Result [facility] Ben Blake MD NURSING TREATMENT ORDERABLES - BLOOD ADMIN Final Result * (ABNORMAL) POC INR (10/26/2024 3:34 AM EDT) Prothrombin Time INR, POC 2.8(H) 0.8 - 1.4 10/27/2024 6:51 AM EDT [facility] Comment: Test results may vary using [...] POINT OF CARE TEST ORDERABLES Final Result [facility] [address] * POC Sample Type (10/26/2024 3:31 AM EDT) POC Sample Type Arterial 10/26/2024 4:11 AM EDT [facility] Blood, Arterial 10/26/2024 3 :31 AM EDT 10/26/2024 4:11 AM EDT us Semaj Mcnair III, MD POINT OF CARE TEST ORDERABLES Final Result Performing Organization Address City/[facility]/ZIP Co de Phone Number [facility] [address] [facility]. [address] * POC Anion Gap (10/26/2024 3:31 AM EDT) POC Anion Gap, Arterial 15 3 - 16 mmol/L 10/26/2024 4:11 AM EDT [facility] Blood, Arterial 10/26/2024 3 :31 AM EDT 10/26/2024 4:11 AM EDT us Semaj Mcnair III, MD POINT OF CARE TEST ORDERABLES Final Result [facility] [address] * POC Chloride (10/26/2024 3:31 AM EDT) POC Chloride 105 98 - 110 mmol/L 10/26/2024 4:11 AM EDT [facility] Blood, Arterial 10/26/2024 3 :31 AM EDT 10/26/2024 4:11 AM EDT us Semaj Mcnair III, MD POINT OF CARE TEST ORDERABLES Final Result Performing Organization Address City/[facility] Co de Phone Number [facility] [address] * (ABNORMAL) POC Hemoglobin (10/26/2024 3:31 AM EDT) POC Hemoglobin 9.7(L) 14.0 - 18.0 g/dL 10/26/2024 4:11 AM EDT [facility] Blood, Arterial 10/26/2024 3 :31 AM EDT 10/26/2024 4:11 AM EDT Semaj Mcnair III, MD POINT OF CARE TEST ORDERABLES Final Result Performing Organization Address [facility] Co de Phone Number [facility] [address] * (ABNORMAL) POC hematocrit (10/26/2024 3:31 AM EDT) POC Hematocrit 29.0(L) 40 - 52 % 10/26/2024 4:11 AM EDT [facility] Blood, Arterial 10/26/2024 3 :31 AM EDT 10/26/2024 4:11 AM EDT Semaj Mcnair III, MD POINT OF CARE TEST ORDERABLES Final Result Performing Organization Address City/[facility] Co de Phone Number [facility] [address] * (ABNORMAL) POC Lactate (10/26/2024 3:31 AM EDT) POC Lactate 3.54(H) 0.50 - 2.20 mmol/L 10/26/2024 4:11 AM EDT [facility] Blood, Arterial 10/26/2024 3 :31 AM EDT 10/26/2024 4:11 AM EDT Semaj Mcnair III, MD POINT OF CARE TEST ORDERABLES Final Result Performing Organization Address City/[facility]/ZIP Co de Phone Number [facility] [address] * (ABNORMAL) POC Glucose (10/26/2024 3:31 AM EDT) POC Glucose, Arterial 153(H) 70 - 100 mg/dL 10/26/2024 4:11 AM EDT [facility] Blood, Arterial 10/26/2024 3 :31 AM EDT 10/26/2024 4:11 AM EDT Semaj Mcnair III, MD POINT OF CARE TEST ORDERABLES Final Result Performing Organization Address City/[facility] Co de Phone Number [facility] [address] * POC Ionized Calcium (10/26/2024 3:31 AM EDT) POC Ionized Calcium 5.10 4.50 - 5.30 mg/dL 10/26/2024 4:11 AM EDT [facility] Blood, Arterial 10/26/2024 3 :31 AM EDT 10/26/2024 4:11 AM EDT Semaj Mcnair III, MD POINT OF CARE TEST ORDERABLES Final Result Performing Organization Address City/[facility] Co de Phone Number [facility] [address] * (ABNORMAL) POC Potassium (10/26/2024 3:31 AM EDT) POC Potassium 2.6(LL) 3.5 - 5.3 mmol/L 10/26/2024 4:11 AM EDT [facility] Blood, Arterial 10/26/2024 3 :31 AM EDT 10/26/2024 4:11 AM EDT us Semaj Mcnair III, MD POINT OF CARE TEST ORDERABLES Final Result Performing Organization Address City/[facility]/ZIP Co de Phone Number [facility] [address] [place] [address]. [address] * POC Sodium (10/26/2024 3:31 AM EDT) POC Sodium 138 136 - 146 mmol/L 10/26/2024 4:11 AM EDT [facility] Blood, Arterial 10/26/2024 3 :31 AM EDT 10/26/2024 4:11 AM EDT us Semaj Mcnair III, MD POINT OF CARE TEST ORDERABLES Final Result Performing Organization Address [facility] Co de Phone Number [facility] [address] [place] [address]. [address] * (ABNORMAL) POC TCO2 (10/26/2024 3:31 AM EDT) POC TCO2, Arterial 19(L) 23 - 27 mmol/L 10/26/2024 4:11 AM EDT [facility] Blood, Arterial 10/26/2024 3 :31 AM EDT 10/26/2024 4:11 AM EDT us Semaj Mcnair III, MD POINT OF CARE TEST ORDERABLES Final Result Performing Organization Address City/State/[facility] Co de Phone Number [facility] [address]. [address] * POC O2 SAT (10/26/2024 3:31 AM EDT) POC O2 Saturation, Arterial 97 95 - 98 % 10/26/2024 4:11 AM EDT [facility] Blood, Arterial 10/26/2024 3 :31 AM EDT 10/26/2024 4:11 AM EDT us Semaj Mcnair III, MD POINT OF CARE TEST ORDERABLES Final Result Performing Organization Address [facility] Co de Phone Number [facility] [address] * (ABNORMAL) POC Base Excess (10/26/2024 3:31 AM EDT) POC Base Excess, Arterial -9(L) -2 - 3 mmol/L 10/26/2024 4:11 AM EDT [facility] Blood, Arterial 10/26/2024 3 :31 AM EDT 10/26/2024 4:11 AM EDT us Semaj Mcnair III, MD POINT OF CARE TEST ORDERABLES Final Result Performing Organization Address [facility] Co de Phone Number [facility] [address] * (ABNORMAL) POC HCO3 (10/26/2024 3:31 AM EDT) POC HCO3, Arterial 18(L) 22 - 26 mmol/L 10/26/2024 4:11 AM EDT [facility] Blood, Arterial 10/26/2024 3 :31 AM EDT 10/26/2024 4:11 AM EDT us Semaj Mcnair III, MD POINT OF CARE TEST ORDERABLES Final Result Performing Organization Address [facility] Co de Phone Number [facility] [address] [facility]. [address] * (ABNORMAL) POC PO2 (10/26/2024 3:31 AM EDT) POC pO2, Arterial 104(H) 80 - 100 mm Hg 10/26/2024 4:11 AM EDT [facility] Blood, Arterial 10/26/2024 3 :31 AM EDT 10/26/2024 4:11 AM EDT us Semaj Mcnair III, MD POINT OF CARE TEST ORDERABLES Final Result Performing Organization Address [facility]/ZIP Co de Phone Number [facility] [address] * POC PCO2 (10/26/2024 3:31 AM EDT) POC pCO2, Arterial 42 35 - 45 mm Hg 10/26/2024 4:11 AM EDT [facility] Blood, Arterial 10/26/2024 3 :31 AM EDT 10/26/2024 4:11 AM EDT Semaj Mcnair III, MD POINT OF CARE TEST ORDERABLES Final Result Performing Organization Address [facility] Co de Phone Number [facility] [address] * (ABNORMAL) POC pH (10/26/2024 3:31 AM EDT) POC pH, Arterial 7.24(L) 7.35 - 7.45 10/26/2024 4:11 AM EDT [facility] Blood, Arterial 10/26/2024 3 :31 AM EDT 10/26/2024 4:11 AM EDT Semaj Mcnair III, MD POINT OF CARE TEST ORDERABLES Final Result Performing Organization Address [facility] Co de Phone Number [facility] [address] * (ABNORMAL) TEG-Global With Lysis (Baseline TEG with LY30, Will NOT Show Heparin Effect) (53:31 AM EDT) Citrated Kaolin Reaction Time (TEGLYSIS) 6.8 4.6 - 9.1 minutes 10/26/2024 5:02 AM EDT [facility] Citrated Rapid Teg Maximum Amplitude (TEGLYSIS) <40.0(L) 52.0 - 70.0 mm 10/26/2024 5:02 AM EDT [facility] Citrated Functional Fibrinogen Maximum Amplitude (TEGLYSIS) <4.0(L) 15.0 - 32.0 mm 10/26/2024 5:02 AM EDT [facility] Citrated Kaolin Percent Lysis (TEGLYSIS) 1.4 0.0 - 2.6 % 10/26/2024 5:02 AM EDT [facility] Whole Blood (Citrate) 10/26/2024 3:31 AM EDT 10/26/2024 3:40 AM EDT Eber Quinones MD LAB BLOOD ORDERABLES Fin al Result [facility] [address] [place] [address], [facility] * (ABNORMAL) CBC (10/26/2024 3:31 AM EDT) WBC 9.5 3.8 - 10.8 10E3/uL 10/26/2024 3:48 AM EDT [facility] RBC 3.68(L) 4.20 - 5.80 10E6/uL 10/26/2024 3:48 AM EDT [facility] Hemoglobin 11.5(L) 13.2 - 17.1 g/dL 10/26/2024 3:48 AM EDT [facility] Hematocrit 33.0(L) 38.5 - 50.0 % 10/26/2024 3:48 AM EDT [facility] MCV 89.6 80.0 - 100.0 fL 10/26/2024 3:48 AM EDT [facility] MCH 31.1 27.0 - 33.0 pg 10/26/2024 3:48 AM EDT [facility] MCHC 34.8 32.0 - 36.0 g/dL 10/26/2024 3:48 AM EDT [facility] RDW 19.3(H) 11.0 - 15.0 % 10/26/2024 3:48 AM EDT [facility] Platelets 67(L) 140 - 400 10E3/uL 10/26/2024 3:48 AM EDT [facility] MPV 7.9 7.5 - 11.5 fL 10/26/2024 3:48 AM EDT [facility] Whole Blood 10/26/2024 3:31 AM EDT 10/26/2024 3:40 AM EDT Eber Quinones MD LAB BLOOD ORDERABLES Fin al Result Performing Organization Address [facility] Co de Phone Number [facility] [address] * (ABNORMAL) Protime-INR (10/26/2024 3:31 AM EDT) Protime 27.0(H) 12.1 - 15.1 seconds 10/26/2024 3:51 AM EDT [facility] INR 2.4(H) 0.9 - 1.1 10/26/2024 3:51 AM EDT [facility] Comment: RECOMMENDED THERAPEUTIC RANGES USING INR : Stable oral anticoagulant therapy: 2.0 - 3.0 Mechanical prosthetic heart valve: 2.5 - 3.5 Recurrent acute myocardial infarction: 2.5 - 3.5 Plasma 10/26/2024 3:31 AM EDT 10/26/2024 3:40 AM EDT Eber Quinones MD LAB BLOOD ORDERABLES Fin al Result Performing Organization Address [facility] Co de Phone Number [facility] [address] [place] [address] * (ABNORMAL) Fibrinogen (10/26/2024 3:31 AM EDT) Fibrinogen 104(L) 218 - 406 mg/dL 10/26/2024 3:56 AM EDT [facility] Plasma 10/26/2024 3:31 AM EDT 10/26/2024 3:40 AM EDT Eber Quinones MD LAB BLOOD ORDERABLES Fin al Result Performing Organization Address City/[facility] Co de Phone Number [facility] [address] * Transfuse Fresh Frozen Plasma (10/26/2024 [...] 0.8 - 1.4 10/27/2024 6:51 AM EDT [facility] Comment: Test results may vary using [...] TEST ORDERABLES Final Result Performing Organization Address [facility] de Phone Number [facility] [address] [place] * Transfuse Fresh Frozen Plasma (10/26/2024 1:41 AM EDT) us Ben Blake MD NURSING TREATMENT ORDERABLES - BLOOD ADMIN Final Result * Transfuse RBC (10/26/2024 1:40 AM EDT) us Ben Blake MD NURSING TREATMENT ORDERABLES - BLOOD ADMIN Final Result * POC Sample Type (10/26/2024 1:40 AM EDT) POC Sample Type Arterial 10/26/2024 2:32 AM EDT [facility] Blood, Arterial 10/26/2024 1 :40 AM EDT 10/26/2024 2:32 AM EDT us Semaj Mcnair III, MD POINT OF CARE TEST ORDERABLES Final Result Performing Organization Address [facility] Co de Phone Number [facility] [address] * POC Anion Gap (10/26/2024 1:40 AM EDT) POC Anion Gap, Arterial 13 3 - 16 mmol/L 10/26/2024 2:32 AM EDT [facility] Blood, Arterial 10/26/2024 1 :40 AM EDT 10/26/2024 2:32 AM EDT us Semaj Mcnair III, MD POINT OF CARE TEST ORDERABLES Final Result Performing Organization Address City/[facility]/ZIP Co de Phone Number [facility] [id number] [place]. [address] * POC Chloride (10/26/2024 1:40 AM EDT) POC Chloride 104 98 - 110 mmol/L 10/26/2024 2:32 AM EDT [facility] Blood, Arterial 10/26/2024 1 :40 AM EDT 10/26/2024 2:32 AM EDT us Semaj Mcnair III, MD POINT OF CARE TEST ORDERABLES Final Result Performing Organization Address [facility] Co de Phone Number [facility] [address] [place] [place] [address]. [address] * (ABNORMAL) POC Hemoglobin (10/26/2024 1:40 AM EDT) POC Hemoglobin 7.4(L) 14.0 - 18.0 g/dL 10/26/2024 2:32 AM EDT [facility] Blood, Arterial 10/26/2024 1 :40 AM EDT 10/26/2024 2:32 AM EDT us Semaj Mcnair III, MD POINT OF CARE TEST ORDERABLES Final Result Performing Organization Address City/[facility] Co de Phone Number [facility] [address] [facility]. [address] * (ABNORMAL) POC hematocrit (10/26/2024 1:40 AM EDT) POC Hematocrit 22.0(L) 40 - 52 % 10/26/2024 2:32 AM EDT [facility] Blood, Arterial 10/26/2024 1 :40 AM EDT 10/26/2024 2:32 AM EDT us Semaj Mcnair III, MD POINT OF CARE TEST ORDERABLES Final Result Performing Organization Address City/[facility]/ZIP Co de Phone Number [facility] [address] * (ABNORMAL) POC Lactate (10/26/2024 1:40 AM EDT) POC Lactate 2.30(H) 0.50 - 2.20 mmol/L 10/26/2024 2:32 AM EDT [facility] Blood, Arterial 10/26/2024 1 :40 AM EDT 10/26/2024 2:32 AM EDT us Semaj Mcnair III, MD POINT OF CARE TEST ORDERABLES Final Result Performing Organization Address [facility] Co de Phone Number [facility] [address] [place] [address]. [address] * (ABNORMAL) POC Glucose (10/26/2024 1:40 AM EDT) POC Glucose, Arterial 116(H) 70 - 100 mg/dL 10/26/2024 2:32 AM EDT [facility] Blood, Arterial 10/26/2024 1 :40 AM EDT 10/26/2024 2:32 AM EDT us Semaj Mcnair III, MD POINT OF CARE TEST ORDERABLES Final Result Performing Organization Address City/[facility] Co de Phone Number [facility] [address]. [address] * (ABNORMAL) POC Ionized Calcium (10/26/2024 1:40 AM EDT) POC Ionized Calcium 4.10(L) 4.50 - 5.30 mg/dL 10/26/2024 2:32 AM EDT [facility] Blood, Arterial 10/26/2024 1 :40 AM EDT 10/26/2024 2:32 AM EDT us Semaj Mcnair III, MD POINT OF CARE TEST ORDERABLES Final Result [facility] [address] [place] [address]. [address] * (ABNORMAL) POC Potassium (10/26/2024 1:40 AM EDT) POC Potassium 2.6(LL) 3.5 - 5.3 mmol/L 10/26/2024 2:32 AM EDT [facility] Blood, Arterial 10/26/2024 1 :40 AM EDT 10/26/2024 2:32 AM EDT Semaj Mcnair III, MD POINT OF CARE TEST ORDERABLES Final Result Performing Organization Address [facility] Co de Phone Number [address] * (ABNORMAL) POC Sodium (10/26/2024 1:40 AM EDT) POC Sodium 135(L) 136 - 146 mmol/L 10/26/2024 2:32 AM EDT [facility] Blood, Arterial 10/26/2024 1 :40 AM EDT 10/26/2024 2:32 AM EDT us Semaj Mcnair III, MD POINT OF CARE TEST ORDERABLES Final Result Performing Organization Address City/State/[facility] Co de Phone Number [facility] [address] [place] [address]. [address] * (ABNORMAL) POC TCO2 (10/26/2024 1:40 AM EDT) POC TCO2, Arterial 19(L) 23 - 27 mmol/L 10/26/2024 2:32 AM EDT [facility] Blood, Arterial 10/26/2024 1 :40 AM EDT 10/26/2024 2:32 AM EDT us Semaj Mcnair III, MD POINT OF CARE TEST ORDERABLES Final Result [facility] [address] [facility]. [address] * (ABNORMAL) POC O2 SAT (10/26/2024 1:40 AM EDT) POC O2 Saturation, Arterial 99(H) 95 - 98 % 10/26/2024 2:32 AM EDT [facility] Blood, Arterial 10/26/2024 1 :40 AM EDT 10/26/2024 2:32 AM EDT Semaj Mcnair III, MD POINT OF CARE TEST ORDERABLES Final Result Performing Organization Address [facility] Co de Phone Number [facility] [address] [facility]. [address] * (ABNORMAL) POC Base Excess (10/26/2024 1:40 AM EDT) POC Base Excess, Arterial -7(L) -2 - 3 mmol/L 10/26/2024 2:32 AM EDT [facility] Blood, Arterial 10/26/2024 1 :40 AM EDT 10/26/2024 2:32 AM EDT us Semaj Mcnair III, MD POINT OF CARE TEST ORDERABLES Final Result Performing Organization Address City/[facility] Co de Phone Number [facility] [address] [facility]. [address] * (ABNORMAL) POC HCO3 (10/26/2024 1:40 AM EDT) POC HCO3, Arterial 18(L) 22 - 26 mmol/L 10/26/2024 2:32 AM EDT [facility] Blood, Arterial 10/26/2024 1 :40 AM EDT 10/26/2024 2:32 AM EDT us Semaj Mcnair III, MD POINT OF CARE TEST ORDERABLES Final Result Performing Organization Address [facility] Co de Phone Number [facility] [address] [facility]. [address] * (ABNORMAL) POC PO2 (10/26/2024 1:40 AM EDT) POC pO2, Arterial 145(H) 80 - 100 mm Hg 10/26/2024 2:32 AM EDT [facility] Blood, Arterial 10/26/2024 1 :40 AM EDT 10/26/2024 2:32 AM EDT Semaj Mcnair III, MD POINT OF CARE TEST ORDERABLES Final Result Performing Organization Address [facility] Co de Phone Number [facility] [address] [place] [facility]. [address] * (ABNORMAL) POC PCO2 (10/26/2024 1:40 AM EDT) POC pCO2, Arterial 33(L) 35 - 45 mm Hg 10/26/2024 2:32 AM EDT [facility] Blood, Arterial 10/26/2024 1 :40 AM EDT 10/26/2024 2:32 AM EDT us Semaj Mcnair III, MD POINT OF CARE TEST ORDERABLES Final Result Performing Organization Address [facility] Co de Phone Number [facility] [address] [place] [facility]. [address] * POC pH (10/26/2024 1:40 AM EDT) POC pH, Arterial 7.35 7.35 - 7.45 10/26/2024 2:32 AM EDT [facility] Blood, Arterial 10/26/2024 1 :40 AM EDT 10/26/2024 2:32 AM EDT Semaj Mcnair III, MD POINT OF CARE TEST ORDERABLES Final Result Performing Organization Address City/[facility] Co de Phone Number [facility] [address] * Transfuse Fresh Frozen Plasma (10/26/2024 1:20 AM EDT) Result [facility] Ben Blake MD NURSING TREATMENT ORDERABLES - BLOOD ADMIN Final Result * Transfuse RBC (10/26/2024 12:56 AM EDT) Result [facility] Ben Blake MD NURSING TREATMENT ORDERABLES - BLOOD ADMIN Final Result * (ABNORMAL) POC INR (10/26/2024 12:41 AM EDT) Prothrombin Time INR, POC 2.0(H) 0.8 - 1.4 10/27/2024 6:51 AM EDT [facility] Comment: Test results may vary using [...] TEST ORDERABLES Final Result Performing Organization Address [facility] Co de Phone Number [facility] [address] * POC Sample Type (10/26/2024 12:39 AM EDT) POC Sample Type Arterial 10/26/2024 1:38 AM EDT [facility] Blood, Arterial 10/26/2024 1 2:39 AM EDT 10/26/2024 1:38 AM EDT Semaj Mcnair III, MD POINT OF CARE TEST ORDERABLES Final Result Performing Organization Address City/[facility]/ZIP Co de Phone Number [facility] [address] * POC Anion Gap (10/26/2024 12:39 AM EDT) POC Anion Gap, Arterial 13 3 - 16 mmol/L 10/26/2024 1:38 AM EDT [facility] Blood, Arterial 10/26/2024 1 2:39 AM EDT 10/26/2024 1:38 AM EDT us Semaj Mcnair III, MD POINT OF CARE TEST ORDERABLES Final Result [facility] [address] * POC Chloride (10/26/2024 12:39 AM EDT) Pathologist [facility] POC Chloride 103 98 - 110 mmol/L 10/26/2024 1:38 AM EDT [facility] Blood, Arterial 10/26/2024 1 2:39 AM EDT 10/26/2024 1:38 AM EDT us Semaj Mcnair III, MD POINT OF CARE TEST ORDERABLES Final Result Performing Organization Address City/[facility] Co de Phone Number [facility] [address] [place] [facility]. [address] * (ABNORMAL) POC Hemoglobin (10/26/2024 12:39 AM EDT) Pathologist [facility] POC Hemoglobin 7.9(L) 14.0 - 18.0 g/dL 10/26/2024 1:38 AM EDT [facility] Blood, Arterial 10/26/2024 1 2:39 AM EDT 10/26/2024 1:38 AM EDT us Semaj Mcnair III, MD POINT OF CARE TEST ORDERABLES Final Result Performing Organization Address City/[facility]/ZIP Co de Phone Number [facility] [address] [facility]. [address] * (ABNORMAL) POC hematocrit (10/26/2024 12:39 AM EDT) POC Hematocrit 23.0(L) 40 - 52 % 10/26/2024 1:38 AM EDT [facility] Blood, Arterial 10/26/2024 1 2:39 AM EDT 10/26/2024 1:38 AM EDT us Semaj Mcnair III, MD POINT OF CARE TEST ORDERABLES Final Result Performing Organization Address City/[facility]/ZIP Co de Phone Number [facility] [address] [place] * POC Lactate (10/26/2024 12:39 AM EDT) Pathologist [facility] POC Lactate 1.39 0.50 - 2.20 mmol/L 10/26/2024 1:38 AM EDT [facility] Blood, Arterial 10/26/2024 1 2:39 AM EDT 10/26/2024 1:38 AM EDT us Semaj Mcnair III, MD POINT OF CARE TEST ORDERABLES Final Result Performing Organization Address [facility] Co de Phone Number [facility] [address] [place] [address]. [address] * (ABNORMAL) POC Glucose (10/26/2024 12:39 AM EDT) POC Glucose, Arterial 116(H) 70 - 100 mg/dL 10/26/2024 1:38 AM EDT [facility] Blood, Arterial 10/26/2024 1 2:39 AM EDT 10/26/2024 1:38 AM EDT us Semaj Mcnair III, MD POINT OF CARE TEST ORDERABLES Final Result Performing Organization Address City/[facility] Co de Phone Number [facility] [address] * (ABNORMAL) POC Ionized Calcium (10/26/2024 12:39 AM EDT) [facility] POC Ionized Calcium 4.30(L) 4.50 - 5.30 mg/dL 10/26/2024 1:38 AM EDT [facility] Blood, Arterial 10/26/2024 1 2:39 AM EDT 10/26/2024 1:38 AM EDT us Semaj Mcnair III, MD POINT OF CARE TEST ORDERABLES Final Result Performing Organization Address City/[facility] Co de Phone Number [facility] [address] [place] [address]. [address] * (ABNORMAL) POC Potassium (10/26/2024 12:39 AM EDT) [facility] POC Potassium 2.4(LL) 3.5 - 5.3 mmol/L 10/26/2024 1:38 AM EDT [facility] Blood, Arterial 10/26/2024 1 2:39 AM EDT 10/26/2024 1:38 AM EDT us Semaj Mcnair III, MD POINT OF CARE TEST ORDERABLES Final Result Performing Organization Address [facility] Co de Phone Number [facility] [address] [place] [address]. [address] * POC Sodium (10/26/2024 12:39 AM EDT) [facility] POC Sodium 136 136 - 146 mmol/L 10/26/2024 1:38 AM EDT [facility] Blood, Arterial 10/26/2024 1 2:39 AM EDT 10/26/2024 1:38 AM EDT us Semaj Mcnair III, MD POINT OF CARE TEST ORDERABLES Final Result Performing Organization Address [facility] Co de Phone Number [facility] [address] [place] [address]. [address] * (ABNORMAL) POC TCO2 (10/26/2024 12:39 AM EDT) POC TCO2, Arterial 21(L) 23 - 27 mmol/L 10/26/2024 1:38 AM EDT [facility] Blood, Arterial 10/26/2024 1 2:39 AM EDT 10/26/2024 1:38 AM EDT us Semaj Mcnair III, MD POINT OF CARE TEST ORDERABLES Final Result [facility] [address] * POC O2 SAT (10/26/2024 12:39 AM EDT) Pathologist [facility] POC O2 Saturation, Arterial 98 95 - 98 % 10/26/2024 1:38 AM EDT [facility] Blood, Arterial 10/26/2024 1 2:39 AM EDT 10/26/2024 1:38 AM EDT us Semaj Mcnair III, MD POINT OF CARE TEST ORDERABLES Final Result Performing Organization Address City/[facility]/ZIP Co de Phone Number [facility] [address] [place] [facility]. [address] * (ABNORMAL) POC Base Excess (10/26/2024 12:39 AM EDT) Pathologist [facility] POC Base Excess, Arterial -7(L) -2 - 3 mmol/L 10/26/2024 1:38 AM EDT [facility] Blood, Arterial 10/26/2024 1 2:39 AM EDT 10/26/2024 1:38 AM EDT us Semaj Mcnair III, MD POINT OF CARE TEST ORDERABLES Final Result [facility] [address] [place] [facility]. [address] * (ABNORMAL) POC HCO3 (10/26/2024 12:39 AM EDT) POC HCO3, Arterial 20(L) 22 - 26 mmol/L 10/26/2024 1:38 AM EDT [facility] Blood, Arterial 10/26/2024 1 2:39 AM EDT 10/26/2024 1:38 AM EDT us Semaj Mcnair III, MD POINT OF CARE TEST ORDERABLES Final Result Performing Organization Address City/[facility] Co de Phone Number [facility] [address] [place] [address]. [address] * (ABNORMAL) POC PO2 (10/26/2024 12:39 AM EDT) POC pO2, Arterial 117(H) 80 - 100 mm Hg 10/26/2024 1:38 AM EDT [facility] Blood, Arterial 10/26/2024 1 2:39 AM EDT 10/26/2024 1:38 AM EDT us Semaj Mcnair III, MD POINT OF CARE TEST ORDERABLES Final Result Performing Organization Address [facility] Co de Phone Number [facility] [address] [place] [address]. [address] * (ABNORMAL) POC PCO2 (10/26/2024 12:39 AM EDT) POC pCO2, Arterial 46(H) 35 - 45 mm Hg 10/26/2024 1:38 AM EDT [facility] Blood, Arterial 10/26/2024 1 2:39 AM EDT 10/26/2024 1:38 AM EDT us Semaj Mcnair III, MD POINT OF CARE TEST ORDERABLES Final Result Performing Organization Address [facility] Co de Phone Number [facility] [address] [place] [address] * (ABNORMAL) POC pH (10/26/2024 12:39 AM EDT) POC pH, Arterial 7.24(L) 7.35 - 7.45 10/26/2024 1:38 AM EDT [facility] Blood, Arterial 10/26/2024 1 2:39 AM EDT 10/26/2024 1:38 AM EDT Semaj Mcnair III, MD POINT OF CARE TEST ORDERABLES Final Result [facility] [address] [place] * Transfuse Platelets (10/26/2024 12:37 AM EDT) Ben Blake MD NURSING TREATMENT ORDERABLES - BLOOD ADMIN Final Result * Transfuse RBC (10/26/2024 12:31 AM EDT) Result [facility] Ben Blake MD NURSING TREATMENT ORDERABLES - BLOOD ADMIN Final Result * Transfuse Fresh Frozen Plasma (10/26/2024 12:28 AM EDT) Result [facility] Ben Blake MD NURSING TREATMENT ORDERABLES - BLOOD ADMIN Final Result * Transfuse Fresh Frozen Plasma (10/26/2024 12:28 AM EDT) Result [facility] Ben Blake MD NURSING TREATMENT ORDERABLES - BLOOD ADMIN Final Result * Routine Culture plus Stain (10/26/2024 12:03 AM EDT) Gram Stain Result Cytospin Results: [facility] Gram Stain Result Polymorphonuclear Leukocytes Seen; [facility] Gram Stain Result No Organisms Seen; [facility] Culture Result No Growth After 3 Days [facility] Surgical Swab ABDOMEN / Unknown 12:03 AM EDT Comment:2.) Ascites Anaerobhic culture Fungus culture Routine culture plus stain Narrative [facility] - 10/28/2024 9:38 PM EDT 2.) Ascites Anaerobhic culture Fungus culture Routine culture plus stain 2.) Ascites Semaj Mcanir III, MD MICROBIOLOGY - GENE RAL ORDERABLES Final Result [facility] [address] [place] [address], [facility] * Surgical Pathology Exam (10/26/2024 12:00 AM EDT) 10/26/2024 10/27/2024 Narrative [facility] - 10/26/2024 12:00 AM EDT CASE: [id number] PATIENT: BLAIR GILBERT Clinical History: Liver - kidney transplant Pre-Operative Diagnosis: Alcoholic cirrhosis of liver Post-Operative Diagnosis: Alcoholic cirrhosis of liver Specimen(s) Submitted: A. robinson liver CPT Code(s): 79390 X 1; 89158 X 5 Additional Information: FINAL DIAGNOSIS: A. 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 - Negative for neoplasm. - Increased hepatocellular iron deposition (3+; Modified Scheuer). Gall bladder: -Intramucosal and submucosal vascular congestion and hemorrhage. - Negative for dysplasia or malignancy. Gross Description: Received in formalin, labeled Blair Gilbert and robinson liver , is a 2338-gram, hepatectomy specimen [...] discrete masses or other lesions are identified. Housekeeping/Laundry sections are submitted in cassettes [id number] as follows: A1: Hilar margins, en face. [...] signing this report is located at [facility], [address] [place] [address], [facility] [phone], CLIA ID: [id number] Semaj Mcnair III, MD PATHOLOGY/CYTOLOGY ORDERABLES Final [...] 0.8 - 1.4 10/27/2024 6:51 AM EDT [facility] Comment: Test results may vary using [...] POINT OF CARE TEST ORDERABLES Final Result [facility] [address] [place] [address]. [address] * POC Sample Type (10/25/2024 11:40 PM EDT) POC Sample Type Arterial 10/25/2024 11:57 PM EDT [facility] Blood, Arterial 10/25/2024 1 1:40 PM EDT 10/25/2024 11:57 PM EDT Semaj Mcnair III, MD POINT OF CARE TEST ORDERABLES Final Result Performing Organization Address [facility] Co de Phone Number [facility] [address] [place] [address]. [address] * POC Anion Gap (10/25/2024 11:40 PM EDT) POC Anion Gap, Arterial 13 3 - 16 mmol/L 10/25/2024 11:57 PM EDT [facility] Blood, Arterial 10/25/2024 1 1:40 PM EDT 10/25/2024 11:57 PM EDT us Semaj Mcnair III, MD POINT OF CARE TEST ORDERABLES Final Result Performing Organization Address City/[facility] Co de Phone Number [facility] [address] [place] [address]. [address] * POC Chloride (10/25/2024 11:40 PM EDT) POC Chloride 102 98 - 110 mmol/L 10/25/2024 11:57 PM EDT [facility] Blood, Arterial 10/25/2024 1 1:40 PM EDT 10/25/2024 11:57 PM EDT us Semaj Mcnair III, MD POINT OF CARE TEST ORDERABLES Final Result Performing Organization Address City/[facility]/ZIP Co de Phone Number [facility] [address] [place] [address]. [address] * (ABNORMAL) POC Hemoglobin (10/25/2024 11:40 PM EDT) Pathologist [facility] POC Hemoglobin 6.6(L) 14.0 - 18.0 g/dL 10/25/2024 11:57 PM EDT [facility] Blood, Arterial 10/25/2024 1 1:40 PM EDT 10/25/2024 11:57 PM EDT us Semaj Mcnair III, MD POINT OF CARE TEST ORDERABLES Final Result Performing Organization Address [facility] Co de Phone Number [facility] [address] [place] [address]. [address] * (ABNORMAL) POC hematocrit (10/25/2024 11:40 PM EDT) [facility] POC Hematocrit 19.0(L) 40 - 52 % 10/25/2024 11:57 PM EDT [facility] Blood, Arterial 10/25/2024 1 1:40 PM EDT 10/25/2024 11:57 PM EDT us Semaj Mcnair III, MD POINT OF CARE TEST ORDERABLES Final Result Performing Organization Address City/[facility] Co de Phone Number [facility] [address] [place] [address]. [address] * POC Lactate (10/25/2024 11:40 PM EDT) Pathologist [facility] POC Lactate 1.36 0.50 - 2.20 mmol/L 10/25/2024 11:57 PM EDT [facility] Blood, Arterial 10/25/2024 1 1:40 PM EDT 10/25/2024 11:57 PM EDT us Semaj Mcnair III, MD POINT OF CARE TEST ORDERABLES Final Result Performing Organization Address City/[facility]/ZIP Co de Phone Number [facility] [address] [place] [facility]. [address] * (ABNORMAL) POC Glucose (10/25/2024 11:40 PM EDT) POC Glucose, Arterial 101(H) 70 - 100 mg/dL 10/25/2024 11:57 PM EDT [facility] Blood, Arterial 10/25/2024 1 1:40 PM EDT 10/25/2024 11:57 PM EDT us Semaj Mcnair III, MD POINT OF CARE TEST ORDERABLES Final Result Performing Organization Address [facility] Co de Phone Number [facility] [address] [place] [facility]. [address] * POC Ionized Calcium (10/25/2024 11:40 PM EDT) POC Ionized Calcium 4.50 4.50 - 5.30 mg/dL 10/25/2024 11:57 PM EDT [facility] Blood, Arterial 10/25/2024 1 1:40 PM EDT 10/25/2024 11:57 PM EDT us Semaj Mcnair III, MD POINT OF CARE TEST ORDERABLES Final Result Performing Organization Address City/[facility] Co de Phone Number [facility] [address] [facility]. [address] * (ABNORMAL) POC Potassium (10/25/2024 11:40 PM EDT) POC Potassium 1.9(LL) 3.5 - 5.3 mmol/L 10/25/2024 11:57 PM EDT [facility] Blood, Arterial 10/25/2024 1 1:40 PM EDT 10/25/2024 11:57 PM EDT us Semaj Mcnair III, MD POINT OF CARE TEST ORDERABLES Final Result [facility] [address] [facility]. [address] * (ABNORMAL) POC Sodium (10/25/2024 11:40 PM EDT) POC Sodium 135(L) 136 - 146 mmol/L 10/25/2024 11:57 PM EDT [facility] Blood, Arterial 10/25/2024 1 1:40 PM EDT 10/25/2024 11:57 PM EDT us Semaj Mcnair III, MD POINT OF CARE TEST ORDERABLES Final Result Performing Organization Address [facility] Co de Phone Number [facility] [address] [place] [facility]. [address] * (ABNORMAL) POC TCO2 (10/25/2024 11:40 PM EDT) POC TCO2, Arterial 21(L) 23 - 27 mmol/L 10/25/2024 11:57 PM EDT [facility] Blood, Arterial 10/25/2024 1 1:40 PM EDT 10/25/2024 11:57 PM EDT us Semaj Mcnair III, MD POINT OF CARE TEST ORDERABLES Final Result [facility] [address] [facility]. [address] * POC O2 SAT (10/25/2024 11:40 PM EDT) POC O2 Saturation, Arterial 98 95 - 98 % 10/25/2024 11:57 PM EDT [facility] Blood, Arterial 10/25/2024 1 1:40 PM EDT 10/25/2024 11:57 PM EDT us Semaj Mcnair III, MD POINT OF CARE TEST ORDERABLES Final Result [facility] [address] [facility]. [address] * (ABNORMAL) POC Base Excess (10/25/2024 11:40 PM EDT) POC Base Excess, Arterial -6(L) -2 - 3 mmol/L 10/25/2024 11:57 PM EDT [facility] Blood, Arterial 10/25/2024 1 1:40 PM EDT 10/25/2024 11:57 PM EDT us Semaj Mcnair III, MD POINT OF CARE TEST ORDERABLES Final Result Performing Organization Address [facility] Co de Phone Number [facility] [address] * (ABNORMAL) POC HCO3 (10/25/2024 11:40 PM EDT) POC HCO3, Arterial 20(L) 22 - 26 mmol/L 10/25/2024 11:57 PM EDT [facility] Blood, Arterial 10/25/2024 1 1:40 PM EDT 10/25/2024 11:57 PM EDT us Semaj Mcnair III, MD POINT OF CARE TEST ORDERABLES Final Result Performing Organization Address City/[facility]/ZIP Co de Phone Number [facility] [address] [facility]. [address] * (ABNORMAL) POC PO2 (10/25/2024 11:40 PM EDT) POC pO2, Arterial 107(H) 80 - 100 mm Hg 10/25/2024 11:57 PM EDT [facility] Blood, Arterial 10/25/2024 1 1:40 PM EDT 10/25/2024 11:57 PM EDT us Semaj Mcnair III, MD POINT OF CARE TEST ORDERABLES Final Result Performing Organization Address City/[facility]/ZIP Co de Phone Number [facility] [address] * POC PCO2 (10/25/2024 11:40 PM EDT) POC pCO2, Arterial 41 35 - 45 mm Hg 10/25/2024 11:57 PM EDT [facility] Blood, Arterial 10/25/2024 1 1:40 PM EDT 10/25/2024 11:57 PM EDT us Semaj Mcnair III, MD POINT OF CARE TEST ORDERABLES Final Result Performing Organization Address [facility] Co de Phone Number [facility] [address] * (ABNORMAL) POC pH (10/25/2024 11:40 PM EDT) POC pH, Arterial 7.29(L) 7.35 - 7.45 10/25/2024 11:57 PM EDT [facility] Blood, Arterial 10/25/2024 1 1:40 PM EDT 10/25/2024 11:57 PM EDT us Semaj Mcnair III, MD POINT OF CARE TEST ORDERABLES Final Result Performing Organization Address City/[facility] Co de Phone Number [facility] [address] * Urine culture (10/25/2024 11:08 PM EDT) Culture Result <1,000 cfu/mL [facility] Culture Result Skin/Urogeni rony Mckayla. No Further Workup. [facility] Newly Placed Berkowitz Urine URINE SPECIMEN / Unknown 10/25/2024 11:08 PM EDT Comment:urine culture Narrative [facility] - 10/28/2024 9:59 AM EDT urine culture urine culture Semaj Mcnair III, MD MICROBIOLOGY - GENE RAL ORDERABLES Final Result [facility] [address] [place] [address], [facility] * X-ray Portable Chest (10/25/2024 10:19 PM [...] - 2.2 mmol/L 10/25/2024 10:39 PM EDT [facility] Plasma 10/25/2024 10:1 7 PM EDT 10/25/2024 10:17 PM EDT Ben Blake MD LAB BLOOD ORDERABLES Final Re sult [facility] [address] * (ABNORMAL) Ferritin (10/25/2024 10:17 PM EDT) Ferritin 623.2(H) 23.9 - 336.2 ng/mL 10/25/2024 11:02 PM EDT [facility] Serum 10/25/2024 10:1 7 PM EDT 10/25/2024 10:17 PM EDT Leandra Og MD LAB BLOOD ORDERABLES F inal Result [facility] [address] * Iron Studies (Iron + TIBC) (10/25/2024 10:17 PM EDT) Iron 128 50 - 212 ug/dL 10/25/2024 10:44 PM EDT [facility] % Iron Saturation SEE COMMENT 15.0 - 55.0 % 10/25/2024 10:44 PM EDT [facility] Comment:Unable to calculate result because contributing result outside reportable range.. TIBC SEE COMMENT 261 - 462 ug/dL 10/25/2024 10:44 PM EDT [facility] Comment:Unable to calculate result because contributing result outside reportable range.. Serum 10/25/2024 10:1 7 PM EDT 10/25/2024 10:17 PM EDT us Leandra Og MD LAB BLOOD ORDERABLES F inal Result [facility] [address] * PTH (10/25/2024 10:17 PM EDT) PTH 36.0 12.0 - 88.0 pg/mL 10/25/2024 11:01 PM EDT [facility] Serum 10/25/2024 10:1 7 PM EDT 10/25/2024 10:17 PM EDT us Leandra Og MD LAB BLOOD ORDERABLES F inal Result Performing Organization Address City/[facility]/ZIP Co de Phone Number [facility] [address] * HIV 1+2 Antibody/Antigen with Reflex (10/25/2024 10:17 PM EDT) HIV 1+2 AB/AGN Nonreactive Nonreactive 10/25/2024 11:03 PM EDT [facility] Serum 10/25/2024 10:1 7 PM EDT 10/25/2024 10:16 PM EDT Narrative [facility] - 10/25/2024 11:03 PM EDT \HIVRNR us Leandra Og MD LAB BLOOD ORDERABLES F inal Result [facility] [address] * Hepatitis B Core Antibody (10/25/2024 10:17 PM EDT) Hep B Core Total Ab Nonreactive Nonreactive 10/25/2024 11:07 PM EDT [facility] Comment:Health Department no tified in accordance with reportable infectious disease guidelines. Serum 10/25/2024 10:1 7 PM EDT 10/25/2024 10:17 PM EDT [facility] - 10/25/2024 11:07 PM EDT A nonreactive final interpretation indicates that anti-HBc antibodies were not detected in the sample; it is possible that the individual is not infected with HBV. Leandra Og MD LAB BLOOD ORDERABLES F inal Result Performing Organization Address [facility]/ZIP Co de Phone Number [facility] [address] [facility]. [address] * Hepatitis C Antibody (10/25/2024 10:17 PM EDT) Pathologist [facility] HCV Ab Nonreactive Nonreactive 10/25/2024 11:16 PM EDT [facility] Comment:Health Department no tified in accordance with reportable infectious disease guidelines. Serum 10/25/2024 10:1 7 PM EDT 10/25/2024 10:17 PM EDT [facility] - 10/25/2024 11:16 PM EDT Antibodies to HCV not detected; does not exclude the possibility of exposure to HCV. Leandra Og MD LAB BLOOD ORDERABLES F inal Result [facility] [address] [facility]. [address] * (ABNORMAL) Hepatitis B Surface Antibody, Quantitati (10/25/2024 10:17 PM EDT) HBSAB NUMBER 10.70(H) 0.00 - 9.99 mIU/mL 10/25/2024 11:52 PM EDT [facility] Hep B S Ab Equivocal (A) Nonreactive 10/25/2024 11:52 PM EDT [facility] Serum 10/25/2024 10:1 7 PM EDT 10/25/2024 10:17 PM EDT Leandra Og MD LAB BLOOD ORDERABLES F inal Result Performing Organization Address City/[facility]/ZIP Co de Phone Number [facility] [address] * Hepatitis B surface antigen (10/25/2024 10:17 PM EDT) Hep B Surface Ag Nonreactive Nonreactive 10/25/2024 11:12 PM EDT [facility] Comment:Health Department no tified in accordance with reportable infectious disease guidelines. Serum 10/25/2024 10:1 7 PM EDT 10/25/2024 10:17 PM EDT Narrative [facility] - 10/25/2024 11:12 PM EDT Specimen is considered negative for HBsAg. us Leandra Og MD LAB BLOOD ORDERABLES F inal Result Performing Organization Address [facility] Co de Phone Number [facility] [address] [place] [address]. [address] * Hepatitis A Antibody Total (10/25/2024 10:17 PM EDT) Anti-HAV Total (IgG + IgM) Nonreactive 10/25/2024 11:13 PM EDT [facility] Serum 10/25/2024 10:1 7 PM EDT 10/25/2024 10:17 PM EDT Narrative [facility] - 10/25/2024 11:13 PM EDT HAV antibodies not detected us Leandra Og MD LAB BLOOD ORDERABLES F inal Result Performing Organization Address City/[facility]/ZIP Co de Phone Number [facility] [address] * (ABNORMAL) Hepatic Function Panel (10/25/2024 10:17 PM EDT) Total Bilirubin 9.1(H) 0.0 - 1.5 mg/dL 10/25/2024 10:47 PM EDT [facility] Bilirubin, Direct 4.58(H) 0.00 - 0.40 mg/dL 10/25/2024 10:47 PM EDT [facility] AST 51(H) 13 - 39 U/L 10/25/2024 10:47 PM EDT [facility] ALT 23 7 - 52 U/L 10/25/2024 10:47 PM EDT [facility] Alkaline Phosphatase 144(H) 36 - 125 U/L 10/25/2024 10:47 PM EDT [facility] Total Protein 5.5(L) 6.4 - 8.9 g/dL 10/25/2024 10:47 PM EDT [facility] Albumin 3.5 3.5 - 5.7 g/dL 10/25/2024 10:47 PM EDT [facility] Bilirubin, Indirect 4.52(H) 0.00 - 1.10 mg/dL 10/25/2024 10:47 PM EDT [facility] Plasma 10/25/2024 10:1 7 PM EDT 10/25/2024 10:17 PM EDT us Leandra Og MD LAB BLOOD ORDERABLES F inal Result [facility] [address] * (ABNORMAL) Renal Function Panel w/EGFR (10/25/2024 10:17 PM EDT) Sodium 137 133 - 146 mmol/L 10/25/2024 10:47 PM EDT [facility] Potassium 2.1(LL) 3.5 - 5.3 mmol/L 10/25/2024 10:47 PM EDT [facility] Comment:Critical Result K:2. 1 Called to and read back by: ALICIA CARCAMO RN at: 10/25/2024 22:47:45 by:CARTERR Chloride 100 98 - 110 mmol/L 10/25/2024 10:47 PM EDT [facility] CO2 20(L) 21 - 33 mmol/L 10/25/2024 10:47 PM EDT [facility] Anion Gap 17(H) 3 - 16 mmol/L 10/25/2024 10:47 PM EDT [facility] BUN 74(H) 7 - 25 mg/dL 10/25/2024 10:47 PM EDT [facility] Creatinine 3.87(H) 0.60 - 1.30 mg/dL 10/25/2024 10:47 PM EDT [facility] Glucose 114(H) 70 - 100 mg/dL 10/25/2024 10:47 PM EDT [facility] Calcium 9.3 8.6 - 10.3 mg/dL 10/25/2024 10:47 PM EDT [facility] Phosphorus 5.9(H) 2.1 - 4.7 mg/dL 10/25/2024 10:47 PM EDT [facility] Albumin 3.5 3.5 - 5.7 g/dL 10/25/2024 10:47 PM EDT [facility] Osmolality, Calculated 307(H) 278 - 305 mOsm/kg 10/25/2024 10:47 PM EDT [facility] EGFR 19 10/25/2024 10:47 PM EDT [facility] Comment:As [...] MD LAB BLOOD ORDERABLES F inal Result [facility] [address] [facility]. [address] * (ABNORMAL) APTT, NO ANTICOAGULANT (10/25/2024 10:17 PM EDT) aPTT 41.7(H) 25.5 - 35.0 seconds 10/25/2024 10:36 PM EDT [facility] Plasma 10/25/2024 10:1 7 PM EDT 10/25/2024 10:17 PM EDT us Leandra Og MD LAB BLOOD ORDERABLES F inal Result Performing Organization Address City/[facility]/ZIP Co de Phone Number [facility] [address] * (ABNORMAL) Protime-INR (10/25/2024 10:17 PM EDT) Protime 21.7(H) 12.1 - 15.1 seconds 10/25/2024 10:35 PM EDT [facility] INR 1.8(H) 0.9 - 1.1 10/25/2024 10:35 PM EDT [facility] Comment: RECOMMENDED THERAPEUTIC RANGES USING INR : Stable oral anticoagulant therapy: 2.0 - 3.0 Mechanical prosthetic heart valve: 2.5 - 3.5 Recurrent acute myocardial infarction: 2.5 - 3.5 Plasma 10/25/2024 10:1 7 PM EDT 10/25/2024 10:17 PM EDT us Leandra Og MD LAB BLOOD ORDERABLES F inal Result [facility] [address] [facility]. [address] * (ABNORMAL) Differential (10/25/2024 10:17 PM EDT) Differential Comments See Note 10/25/2024 10:54 PM EDT [facility] Comment: _Platelets Appear Decreased _Platelet Morphology Normal Scan Result PERFORMED 10/25/2024 10:54 PM EDT [facility] Neutrophils Relative 79.8 40.0 - 80.0 % 10/25/2024 10:54 PM EDT [facility] Lymphocytes Relative 9.6(L) 15.0 - 45.0 % 10/25/2024 10:54 PM EDT [facility] Monocytes Relative 8.9 0.0 - 12.0 % 10/25/2024 10:54 PM EDT [facility] Eosinophils Relative 1.3 0.0 - 8.0 % 10/25/2024 10:54 PM EDT [facility] Basophils Relative 0.4 0.0 - 1.0 % 10/25/2024 10:54 PM EDT [facility] nRBC 0 0 - 0 /100 WBC 10/25/2024 10:54 PM EDT [facility] Neutrophils Absolute 4,948 1,520 - 8,640 /uL 10/25/2024 10:54 PM EDT [facility] Lymphocytes Absolute 595 570 - 4,860 /uL 10/25/2024 10:54 PM EDT [facility] Monocytes Absolute 552 0 - 1,296 /uL 10/25/2024 10:54 PM EDT [facility] Eosinophils Absolute 81 0 - 864 /uL 10/25/2024 10:54 PM EDT [facility] Basophils Absolute 25 0 - 108 /uL 10/25/2024 10:54 PM EDT [facility] PLT Morphology Platelet morphology appears normal 10/25/2024 10:54 PM EDT [facility] Whole Blood 10/25/2024 10:1 7 PM EDT 10/25/2024 10:17 PM EDT us Leandra Og MD LAB BLOOD ORDERABLES F inal Result [facility] [address] [place] [id number], [facility] * (ABNORMAL) CBC (10/25/2024 10:17 PM EDT) Pathologist [facility] WBC 6.2 3.8 - 10.8 10E3/uL 10/25/2024 10:54 PM EDT [facility] RBC 2.40(L) 4.20 - 5.80 10E6/uL 10/25/2024 10:54 PM EDT [facility] Hemoglobin 8.3(L) 13.2 - 17.1 g/dL 10/25/2024 10:54 PM EDT [facility] Hematocrit 23.7(L) 38.5 - 50.0 % 10/25/2024 10:54 PM EDT [facility] MCV 98.9 80.0 - 100.0 fL 10/25/2024 10:54 PM EDT [facility] MCH 34.6(H) 27.0 - 33.0 pg 10/25/2024 10:54 PM EDT [facility] MCHC 35.0 32.0 - 36.0 g/dL 10/25/2024 10:54 PM EDT [facility] RDW 17.8(H) 11.0 - 15.0 % 10/25/2024 10:54 PM EDT [facility] Platelets 56(L) 140 - 400 10E3/uL 10/25/2024 10:54 PM EDT [facility] Comment: Specimen checked for clots. None detected. Slide Reviewed for PLT Clumps. None Seen. Platelet Estimate Decreased 10/25/2024 10:54 PM EDT [facility] MPV 8.1 7.5 - 11.5 fL 10/25/2024 10:54 PM EDT [facility] Whole Blood 10/25/2024 10:1 7 PM EDT 10/25/2024 10:17 PM EDT Narrative [facility] - 10/25/2024 10:54 PM EDT Peripheral blood smear was scanned per review criteria approved by the laboratory medical accounting clerk. us Leandra Og MD LAB BLOOD ORDERABLES F inal Result [facility] [address] [place] [address], [facility] * Donor Specific Antibody (DSA) (10/25/2024 10:00 PM EDT) Pathologist [facility] AntiDonor Antibodies The request and specimen(s) for this test have been received and transported to the [facility] at [address] [place] [address]. The [facility] will report results directly to the client. 10/25/2024 10:20 PM EDT [facility] Comment:Testing performed by [facility], [address] [place] [address]. The [facility] report has been forwarded to the appropriate ordering location. Please refer to this report for patient results. Serum 10/25/2024 10:0 0 PM EDT 10/25/2024 10:20 PM EDT us Leandra Og MD LAB BLOOD ORDERABLES F inal Result [facility] [address] [id number], [facility] * (ABNORMAL) Venous Blood Gas, Line/Syringe (10/25/2024 10:00 PM EDT) Pathologist [facility] PH-Line Draw 7.38 7.32 - 7.42 10/25/2024 10:08 PM EDT [facility] PCO2-Line Draw 33(L) 41 - 51 mm Hg 10/25/2024 10:08 PM EDT [facility] PO2-Line Draw 33 25 - 40 mm Hg 10/25/2024 10:08 PM EDT [facility] HCO3-Line Draw 20(L) 24 - 28 mmol/L 10/25/2024 10:08 PM EDT [facility] CO2 Content-Line Draw 21(L) 25 - 29 mmol/L 10/25/2024 10:08 PM EDT [facility] Base Excess-Line Draw -5.0(L) -2.0 - 3.0 mmol/L 10/25/2024 10:08 PM EDT [facility] %HBO2-Line Draw 53.8 40.0 - 70.0 % 10/25/2024 10:08 PM EDT [facility] Carboxyhgb-Ludivina e Draw 1.9 % 10/25/2024 10:08 PM EDT [facility] Comment: CARBOXYHEMOGLOBIN (CO) REFERENCE RANGES: Non-Smokers: <2 % Smokers: <8 % TOXIC: >20 % Methemoglobin- Line Draw 0.2 0.0 - 1.5 % 10/25/2024 10:08 PM EDT [facility] Reduced Hemoglobin-Ludivina e Draw 44.1(H) 0.0 - 5.0 % 10/25/2024 10:08 PM EDT [facility] Venous, Line Draw 10/25/2024 10:00 PM EDT 10/25/2024 10:04 PM EDT Leandra Og MD LAB BLOOD ORDERABLES F inal Result Performing Organization Address City/State/[facility] Co de Phone Number [facility] [address] * (ABNORMAL) POC Glucose Monitoring Device (10/25/2024 9:56 PM EDT) [facility] POC Glucose Monitoring Device 103(H) 70 - 100 mg/dL 10/25/2024 9:58 PM EDT [facility] Blood 10/25/2024 9:56 PM EDT 10/25/2024 9:57 PM EDT Semaj Mcnair III, MD POINT OF CARE TEST ORDERABLES Final Result Performing Organization Address City/[facility] Co de Phone Number [facility] [address] * ECG 12 lead (MUSE) (10/25/2024 9:34 PM EDT) 10/25/2024 9:34 PM EDT Narrative MUSE - 10/27/2024 10:08 AM EDT Ventricular Rate: 97 BPM Atrial Rate: 86 BPM QRS Duration: 106 ms QT: 532 ms QTc: 675 ms P [place]: 38 degrees R [place]: -29 degrees T [place]: 32 degrees Diagnosis Line: Critical Test Result: Long QTc , AV Block ^ SINUS RHYTHM WITH PREMATURE VENTRICULAR COMPLEXES ^ PROLONGED QT ^ NONSPECIFIC ST AND T WAVE CHANGES ^ ABNORMAL ECG ^ ^ Confirmed by MD HA, [facility] ([id number] on 10/27/2024 10:08:26 AM Leandra Og MD ECG ORDERABLES Final Result MUSE * Hepatitis C RNA, Quant Reflex to Genotyp (10/25/2024 8:18 PM EDT) International Units Not Detected IU/mL 10/27/2024 11:03 AM EDT [facility] Comment:Test methodology for HCV RNA quantification is an FDA-approved nucleic acid amplification assay. The Lower Limit of Quantitation (LLOQ) is 15 IU/mL. The linear range of the assay is 15-100,000,000 IU/mL. The Limit of Detection (LoD) is 12.0 IU/mL for EDTA plasma. The reference range is Not Detected. IU log10 See Note log 10 IU/mL 10/27/2024 11:03 AM EDT [facility] Comment:HCV RNA not detected . Plasma 10/25/2024 8:18 PM EDT 10/25/2024 10:27 PM EDT Leandra Og MD LAB BLOOD ORDERABLES F inal Result Performing Organization Address City/[facility]/ZIP Co de Phone Number [facility] [address] * Urinalysis w/Rfl to Microscopic (10/25/2024 8:18 PM EDT) Color, UA Yellow Yellow,Straw 10/25/2024 10:38 PM EDT [facility] Clarity, UA Clear Clear 10/25/2024 10:38 PM EDT [facility] Specific Crescent, UA 1.010 1.005 - 1.035 10/25/2024 10:38 PM EDT [facility] pH, UA 6.0 5.0 - 8.0 10/25/2024 10:38 PM EDT [facility] Protein, UA Negative Negative mg/dL 10/25/2024 10:38 PM EDT [facility] Glucose, UA Negative Negative mg/dL 10/25/2024 10:38 PM EDT [facility] Ketones, UA Negative Negative mg/dL 10/25/2024 10:38 PM EDT [facility] Bilirubin, UA Negative Negative 10/25/2024 10:38 PM EDT [facility] Blood, UA Negative Negative 10/25/2024 10:38 PM EDT [facility] Nitrite, UA Negative Negative 10/25/2024 10:38 PM EDT [facility] Urobilinogen, UA <2.0 0.2 - 1.9 mg/dL 10/25/2024 10:38 PM EDT [facility] Leukocyte Esterase, UA Negative Negative 10/25/2024 10:38 PM EDT [facility] Urine 10/25/2024 8:18 PM EDT 10/25/2024 10:35 PM EDT Narrative [facility] - 10/25/2024 10:38 PM EDT Microscopic testing is not performed when the dipstick is negative for blood, leukocyte, protein and nitrite. Leandra Og MD URINE ORDERABLES Final Result Performing Organization Address [facility] Co de Phone Number [facility] [address] * Toxoplasma gondii antibody, IgG (10/25/2024 8:18 PM EDT) Toxoplasma Gondii IgG <3.0 0.0 - 7.1 IU/mL 10/27/2024 7:55 AM EDT [facility] Comment: Negative <7.2 Equivocal 7.2 - 8.7 Positive >8.7 Serum 10/25/2024 8:18 PM EDT 10/27/2024 8:06 AM EDT Narrative [facility] - 10/27/2024 8:06 AM EDT PERFORMED AT: [facility] [id number] [employer] CAR PUSHER: Bassam Khalil, PhD PHONE: [phone] Leandra Og MD LAB BLOOD ORDERABLES F inal Result Performing Organization Address City/[facility]/ZIP Co de Phone Number [facility] [address] * Antibody Screen (10/25/2024 7:46 PM EDT) Pathologist [facility] Antibody Screen Negative 10/25/2024 10:41 PM EDT [facility] Blood 10/25/2024 7:46 PM EDT 10/25/2024 9:54 PM EDT Narrative [facility] - 10/25/2024 10:44 PM EDT Testing performed by [facility] Ben Blake MD BLOOD BANK TEST ORDERABLES Fi nal Result [facility] [address] [place] [facility]. [address] * ABO/Rh (10/25/2024 7:46 PM EDT) Pathologist [facility] ABO Grouping O 10/25/2024 10:23 PM EDT [facility] Rh Type Positive 10/25/2024 10:23 PM EDT [facility] Blood 10/25/2024 7:46 PM EDT 10/25/2024 9:54 PM EDT Ben Blake MD BLOOD BANK TEST ORDERABLES Fi nal Result [facility] [address] * (ABNORMAL) TEG-Standard Global Hemostasis (Rapid TEG with Heparin Effect, Contains a Baseline TEG) (10/25/2024 7:46 PM EDT) Pathologist [facility] Citrated Kaolin Reaction Time (TEGHEPARINASE) 8.4 4.6 - 9.1 minutes 10/25/2024 10:49 PM EDT [facility] Citrated Rapid Teg Maximum Amplitude (TEGHEPARINASE) <40.0(L) 52.0 - 70.0 mm 10/25/2024 10:49 PM EDT [facility] Citrated Functional Fibrinogen Maximum Amplitude (TEGHEPARINASE) 6.7(L) 15.0 - 32.0 mm 10/25/2024 10:49 PM EDT [facility] Citrated Kaolin W/Heparinase Reaction Time (TEGHEPARINASE) 8.1 4.3 - 8.3 minutes 10/25/2024 10:49 PM EDT [facility] Citrated Kaolin K-Time (TEGHEPARINASE) 2.5(A) 0.8 - 2.1 minutes 10/25/2024 10:49 PM EDT [facility] Citrated Kaolin Angle (TEGHEPARINASE) 65.7(A) 63.0 - 78.0 degrees 10/25/2024 10:49 PM EDT [facility] Citrated Kaolin Maximum Amplitude (TEGHEPARINASE) <40.0(L) 52.0 - 69.0 mm 10/25/2024 10:49 PM EDT [facility] Citrated Functional Fibrinogen- Fibrinogen Level (TEGHEPARINASE) 159.5(L) 278.0 - 581.0 mg/dL 10/25/2024 10:49 PM EDT [facility] Whole Blood (Citrate) 10/25/2024 7:46 PM EDT 10/25/2024 10:15 PM EDT us Ben Blake MD LAB BLOOD ORDERABLES Final Re sult [facility] [address] [place] [address], [facility] documented in this encounter Visit Diagnoses [...] on 10/25/24 at 2128, Intra-op Given 10/25/2024 9:29 PM EDT 2,000 mLs sterile water irrigation As needed, Starting on Sun10/25/24 at 8, Intra-op Given 10/25/2024 9:28 PM EDT 2,000 [...] Vilchis RN)1255 (Given - Provider: Paulette Flannery, ЮЛИЯ)6 (Given - Provider: Yvonne Gale RN) 0620 [...] Gale RN)1345 (Given - Provider: Paulette Flannery RN)2118 (Given [...] ALERT MEDICATION 0846 (Given - Provider: Paulette Flannery, ЮЛИЯ) levothyroxine (SYNTHROID) tablet 75 mcg 75 mcg, [...] at 1130 1219 (Given - Provider: Paulette Flannery, ЮЛИЯ) loratadine (CLARITIN) tablet 10 mg 10 mg, Oral, Daily, First dose on Sun10/28/24 at 0930 0851 (Given - Provider: Paulette Flannery, ЮЛИЯ) 1017 (Given - Provider: Paulette Flannery, ЮЛИЯ) 1142 (Given - Provider: Paulette Flannery, ЮЛИЯ) magnesium sulfate in sterile water 50 mL IVPB 2 g (COMPLETED) 2 g, Intravenous, Administer over 120 Minutes, Once, On 11/01/24 at 0830, For 1 dose 1057 (New Bag - Provider: Paulette Flannery, ЮЛИЯ) melatonin tablet Tab 6 mg 6 mg, [...] Flannery RN)1254 (Given - Provider: Paulette Flannery RN)184 (Given - Provider: Vivi Newton, ЮЛИЯ)2340 (Given - Provider: Yvonne Gale RN - Comment: given at 1842) 1018 (Given - Provider: Paulette Flannery RN)1344 [...] ЮЛИЯ) 0543 (Given - Provider: Yvonne Gale RN) polyethylene glycol (MIRALAX) packet 17 g 17 g, Oral, 2 times daily, First dose on Sun10/29/24 at 1400, On hold since Sun11/02/2024 at 0634 until manually unheld 0852 (Given - Provider: Paulette Flannery, ЮЛИЯ)2057 (Not Given - Provider: Yvonne Gale RN [...] RN) 1019 (Given - Provider: Paulette Flannery RN)212 (Given - Provider: Yvonne Gale RN) 1142 [...] Flannery RN)1344 (Given - Provider: Paulette Flannery RN)2118 (Given - Provider: Yvonne Gale RN) 1141 (Given - Provider: Paulette Flannery RN)1531 (Given - Provider: Meka Montalvo RN) sulfamethoxazole-trimeth oprim (BACTRIM) 400-80 mg per tablet 1 tablet 1 tablet, Oral, Daily, First dose on Sun10/29/24 at 0900 0851 (Given - Provider: Paulette Flannery, ЮЛИЯ) 1021 (Given - Provider: Paulette Flannery, ЮЛИЯ) 1141 (Given - Provider: Paulette Flannery RN) [...] Flannery RN) 1020 (Given - Provider: Paulette Flannery, ЮЛИЯ) [...] Provider: Vandana Vilchis, ЮЛИЯ)0616 (Given - Provider: Vadnana Vilchis RN) Linked Groups Order Group 1: [...] to med 30 mg, Oral, Once, On Sun11/01/24 at [...] documented as of this encounter Care Teams Online Services Manager Relationship Specialty Start Date End Date Enedina Mcguire NP [address] [place] [address] PCP - General Internal Medicine 10/05/24 documented as of this encounter
--- OUTSIDE RECORDS SUMMARY | 2024-10-25 22:54 | XMS_ITS | Encounter Summary ---
Author Organization [facility] Address [facility] [place] [address] Care Team Providers Care Assembly Riveter Name Role Phone Enedina Mcguire NP Primary Care Provider [phone] Source Comments This information has been disclosed [...] release of HIV test results or diagnoses. [id number] Reason for Visit * Auth/Cert (Routine) Specialty Diagnoses / Procedures Referred By Shane t Referred To Contact Surgical Intensive Care Diagnoses Liver transplant recipient (CMS-HCC) cirrhosis and CKD Procedures LIVER-KIDNEY TRANSPLANT [facility] SICU [address] [place] [address] Phone: tel: Referral ID Status Reason Start Date Expiration Date Visits Re quested Visits Authorized [id number] 1 1 Encounter Details Date Type Department Care Team (Late st Contact Info) Description 10/25/2024 10:54 PM EDT Anesthesia Event [facility] PERIOP [address] [place] [address] Eber Quinones MD [address] [place] [address] Maureen Fleming MD [address] [place] [address] Anesthesia Record Procedure Summary Procedure Name Responsible [...] sodium chloride 0.9% 1 00 mL IVPB (Hnln5Vto) 4 g cefTRIAXone (ROCEPHIN) 2 g in sodium chl oride 0.9 % 100 mL Bbds6Oyz 8 g fluconazole (DIFLUCAN) 200 mg in [...] the past 12 months has th e [employer], oil, or water [employer] threatened to shut off services in [...] Blake MD - 10/25/2024 7:26 PM EDT [facility] DEPARTMENT OF ANESTHESIOLOGY PRE-PROCEDURAL EVALUATION Julien [...] dysrhythmias, angina, orthopnea. ECG reviewed. ROS comment: [facility] 10/14/24: IMPRESSIONS: - Patent coronary arteries [...] is no recent study available for direct umdb-kf-wksr comparison. Stress echo 10/09/24: - Left ventricle: [...] at baseline or with provocation, shows no rpyzu-xl-zcph atrial level shunt. - Pulmonary arteries: Systolic [...] Resource Strain: Low Risk (07/09/2024) Received from [facility] Overall Financial Resource Strain (CARDIA) Difficulty [...] No Physical Activity: Unknown (07/14/2024) Received from [facility] Exercise Vital Sign Days of Exercise per Week: Patient unable to answer Minutes of Exercise per Session: Not on file Stress: Patient Unable To Answer (07/14/2024) Received from [facility] [place] of Occupational Health - Occupational Stress Questionnaire Feeling of Stress : Patient unable to answer Social Connections: Patient Unable To Answer (07/14/2024) Received from [facility] Social Connection and Isolation Panel [NHANES] Frequency of Communication with Friends and Family: Patient unable to answer Frequency of Social Gatherings with Friends and Family: Patient unable to answer Attends Gnosticist Services: Patient unable to answer Active Member [...] times a day. naloxone (NARCAN) 4 mg/actuation [place] Apply 1 spray in one nostril if [...] MD - 10/25/2024 11:54 PM EDTAssociated Order(s): [place] Emily Cath [place] Emily Cath Date/Time: 10/25/2024 11:13 PM Performed [...] Ben Blake MD Attending Anesthesiologist [facility] * Jimmy Gonzalez MD - 10/25/2024 [...] Ben Blake MD Attending Anesthesiologist [facility] documented in this encounter Plan of Treatment Upcoming Encounters Date Type Department Care Team (Late st Contact Info) Description 12/05/2024 8:01 AM EDT Hospital Encounter [facility] ENDOSCOPY [address] [place] [address] Chris Orosco MD [address] [place] [phone] 12/05/2024 8:01 AM EDT - 12/05/2024 8:31 AM EDT Surgery [facility] ENDOSCOPY [address] [place] [address] Chris Orosco MD [address] [place] [phone] EGD Scheduled Procedures Name Priority Associated Diagnoses [...] EDT Ben Blake MD 10/26/2024 7:45 PM [place] Emily Cath Date/Time: 10/25/2024 11:13 PM Performed [...] hepatic cirrhosis type ([facility]) * Transfer of Care - [...] 0659 10/26/24 07 - 10/27/24 0659 Shift 3753-8013 1689-3032 9259-8207 24 Hour Total 6240-9093 9692-7739 3977-9060 24 Hour Total INTAKE I.V. 9100(74.3) 9100(74.3) [...] in sodium chloride 0.9 % 100 mL Tykm8Sqe) 100 100 Volume (mL) (AMPicillin 2 g in sodium chloride 0.9% 100 mL IVPB (Lkuv2Nwg)) 200 200 Volume (mL) (albumin human bottle 5%) 1000 1000 Volume (mL) (potassium chloride (KCl)/Sterile water 100 mL 10 mEq/100 mL IVPB) 200 200 Shift Total(mL/kg) 05444(151.9) 80628(151.9) OUTPUT Urine 150(0.2) 1375 1525 Urine 150 [...] in sodium chloride 0.9% 100 mL IVPB (Lbmp1Was) 2 g, Intravenous, at 200 mL/hr, Every 6 hours, First dose on 10/26/24 at 0000, Use Fzkn4Cuu Adapter - Mix Thoroughly Before Administration Bolus [...] in sodium chloride 0.9 % 100 mL Agsw4Ldq 2 g, Intravenous, Administer over 30 Minutes, Once, Use Qlas6Mza Adapter - Mix Thoroughly Before Administration, Indication? [...] documented as of this encounter Care Teams Assembly Riveter Relationship Specialty Start Date End Date Enedina Mcguire NP [address] [place] [address] PCP - General Internal Medicine 10/05/24 documented as of this encounter
--- OUTSIDE RECORDS SUMMARY | 2024-10-27 02:00 | XMS_ITS | Encounter Summary ---
Author Organization [facility] Address [address] [place] [address] Care Team Providers Care Casino Floorperson Name Role Phone Enedina Mcguire NP Primary Care Provider [phone] Source Comments This information has been disclosed [...] release of HIV test results or diagnoses. [id number] Reason for Visit * Auth/Cert (Routine) Specialty Diagnoses / Procedures Referred By Shane hernadez Referred To Contact Surgical Intensive Care Diagnoses Liver transplant recipient (CMS-HCC) cirrhosis and CKD Procedures LIVER-KIDNEY TRANSPLANT [facility] SICU [address] [place] [address] Phone: tel: Referral ID Status Reason Start Date Expiration Date Visits Re quested Visits Authorized [id number] 1 1 Encounter Details Date Type Department Care Team (Late st Contact Info) Description 10/27/2024 2:00 AM EDT - 10/27/2024 6:54 AM EDT Surgery [facility] PERIOP [address] [place] [address] Semaj Mcnair III, MD [address] [facility] [address] [place] [address] Donor Kidney Transplant , Back [...] Recorded In the past 12 months has shenzhoufu, oil, or water Zoyi threatened to shut off services in your [...] Plata MD - 11/02/2024 2:04 PM EDT [facility] Liver Transplant Surgical Service Inpatient Discharge Summary Patient: Blair Gilbert : 1985 [facility]: [id number] Date of Admission: 10/25/2024 Date of Discharge: [...] Case IDs Date Procedure Surgeon Location Status [id number] 10/25/24 LIVER TRANSPLANT Semaj Mcnair III, MD OR Comp [id number] 10/27/24 Donor Kidney Transplant , Back Bench [...] EXAM: US ABDOMEN LIMITED EXAM: US DUPLEX HST-NZUWVD-KQUQLGE COMPLETE INDICATION: Post-op liver transplant COMPARISON: None [...] visualized secondary to poor acoustic windows. The [place] right kidney measures 11.6 cm in length. [...] 30 tablet Refills: 0 naloxone 4 mg/actuation [place] Commonly known as: NARCAN Apply 1 spray [...] Your Medications These medications were sent to [facility] NAA Baum [address] Mya [address] [place] [address] mycophenolate 250 mg capsule tacrolimus 1 MG capsule These medications were sent to [facility] [address] [place] [address] Hours: Sunday - Sunday: 8:00AM - 6:00PM [...] Case IDs Date Procedure Surgeon Location Status [id number] 10/25/24 LIVER TRANSPLANT Semaj Mcnair III, MD OR Comp [id number] 10/27/24 Donor Kidney Transplant , Back Bench [...] discharge. NEURO/PAIN - Patient placed on Dilaudid HANDS AND DIAL INSPECTOR once extubated, then transitioned to multi-modal pain [...] Ureteral stentis [place] [facility] patient and recommended Home PT/OT, outpatient PT/OT only available. ENDO - A1C is 5.0. Pt was not on diabetic regimen prior to arrival. Patient developed steroid-induced hyperglycemia 2/2 steroid regimen. Discharged home on the following regimen: HDSSI. Patient met w/ ict educator prior to discharge. HEME - Post-operatively, [...] Patient and family received post-transplant education from adolescent coordinator as well as medication teaching from [...] 11/04/2024 8:40 AM LTRA SURGERY, [facility] LTRA HOX HOX 11/04/2024 10:10 AM LTRA HEPATORENAL HOX LTRA HOX HOX 11/25/2024 9:00 AM NAA Merida [facility] URO MAB MAB 12/02/2024 2:00 PM Bossman Huffman MD [facility] MARIANGEL MAB MAB 02/25/2025 10:50 AM Bruno Gonzalez MD KTSP HOX HOX Kenyetta Hartman, MS-4 [facility] SHAY PLATA MD 11/02/2024 12:50 PM [...] kept under 2 gm/day. Please discuss withyour online program coordinator if you have any question about appropriate dose to take. Other Instructions: Call post-liver transplant clinic with questions [phone] or call [facility] at [phone] and ask for the liver adolescent coordinator front desk monitor if you experience any of the following: [...] 11/04/2024 8:40 AM LTRA SURGERY, [facility] LTRA HOX HOX 11/04/2024 10:10 AM LTRA HEPATORENAL [facility] LTRA HOX HOX 11/25/2024 9:00 AM NAA Merida [facility] URO MAB MAB 12/02/2024 2:00 PM [...] AM EDT 10/30/2024 naloxone (NARCAN) 4 mg/actuation [place] Apply 1 spray in one nostril if [...] tacrolimus and mycophenolate which were dispensed through [facility] per insurance requirements. Patient's [...] fair Expected caregiver involvement?: is primary med mergers and acquisitions manager Need for additional education in clinic?: routine reinforcement only Future medications to be obtained from, if known (select one): Tac/MMF to be filled from [facility] Financial concerns (if [...] Disp-30 tablet, R-0 naloxone (NARCAN) 4 mg/actuation [place] Apply 1 spray in one nostril if [...] Solid Organ Transplant Clinical Specialist Contact via [employer] Secure Chat * Froylan Hendrickson MD - 11/01/2024 8:04 AM EDT Liver Transplant Surgery Progress Note Name: Blair Gilbert CSN: [id number] Date: 11/01/2024 8:06 AM OR Date: 10/25/2024 [...] at 10/31/2024 4:38 PM EDT US Duplex Ssp-Qoa-Sonxknr Comp Result Date: 10/31/2024 IMPRESSION: RIGHT UPPER [...] 3:24 PM EDT TXP - Follow Up [facility] Medical Nutrition Therapy Transplant [...] protein supplement ([facility] only) Pertinent Information: Pt seen for [...] Based on DBW of 93.1 kg Kcals/day: 8640-3463 (25-30 kcals/kg) Protein g/day: 140-190 (1.5-2.0 g/kg) [...] Dietitian - Solid Organ Transplant Contact via [employer] Chat * Keon Dobson - 10/31/2024 2:35 PM EDT [facility] Spiritual Care Volunteer Visit PATIENT NAME: Blair Gilbert ROOM:[address] [place] [address] Congregation Affiliation:Anabaptism Blair Gilbert was visited by a volunteer today. No needs requiring a visit from a staff branch or department chief librarian were expressed at that time. Care Provided: Communion, Prayer/ blessing Please page our service at [phone] as needs arise for patient and/or family. Fr Dean Dobson Anabaptism branch or department chief librarian Spiritual Care Dept * Brittany Horne PT [...] transplant recipient (CMS-HCC) [Z94.4] Date: 10/31/2024 Room: [facility] Reviewed Pertinent hospital course: Yes [...] by OT: Long-handled sponge, Sock aid, Customer Loyalty Representative, Other (comment) Equipment issued by OT comment: leg inorganic chemistry teacher Assessment Assessment: Decreased ADL status, Decreased IADLs, [...] Pt will complete bathing assessment and transfer terminologist goal to be met in: 2 weeks [...] SBP (spontaneous bacterial peritonitis) ([facility]) C Diff Diarrhea C. difficile diarrhea Neck [...] 0659 10/31/24 07 - 11/01/24 0659 Shift 7558-9616 0327-2051 7112-2288 24 Hour Total 1896-7080 0236-3899 1828-4739 24 Hour Total INTAKE P.O. 240 240 P.O. 240 240 Shift Total(mL/kg) 240(1.9) 240(1.9) OUTPUT Urine(mL/kg/hr) 1850(1.8) 600(0.6) 600(0.6) 3050(1) 350 350 Urine 800 600 240 1197 350 350 Urine Occurrence 2 x 2 [...] with further concerns Lavell Kramer MD 10/31/[phone] * Priti Geiger CNP - 10/31/2024 10:06 AM EDT Liver Transplant Surgery Progress Note Name: Blair Gilbert CSN: [id number] Date: 10/31/2024 10:06 AM OR Date: 10/25/2024 [...] 10/28/24 1109 LACTATE 0.3* Imaging US Duplex Nwm-Vga-Nfanefi Comp Result Date: 10/28/2024 IMPRESSION: ABDOMINAL ULTRASOUND [...] Transplant Nephrology Progress Note Patient: Blair Gilbert [id number] Date of Admit: 10/25/2024. 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 Lauren Santos, SAMSON, INTERACTIVE ART DIRECTOR, AMUSEMENT EQUIPMENT OPERATOR- Transplant Nephrology [phone] Preferred contact: secure chat The HPI, ROS, [...] - 10/30/24 0610/30/24699 - 10/31/24 06 Shift 9676-4554 1493-1096 1006-8717 24 Hour Total 3915-7334 1650-4337 4292-9487 24 Hour Total INTAKE P.O. 240 240 480 P.O. 240 240 480 IV Piggyback 87.2 87.2 Volume (mL) (micafungin (MYCAMINE) 50 mg in sodium chloride 0.9 % 100 mL Nvri5Ewy IVPB) 87.2 87.2 Shift Total(mL/kg) 240(2) 327.2(2.7) 567.2(4.4) OUTPUT Urine(mL/kg/hr) 600(0.6) 1175(1.2) 450(0.4) 2225(0.7) 550 550 Output (mL) (IUC (Berkowitz) Triple-lumen (3-Way) 18 Fr.) 600 4836 268 9663 550 550 Drains 175 245 100 520 [...] month of prophylaxis Lavell Kramer MD 10/30/[phone] * Priti Geiger CNP - 10/30/2024 10:36 AM EDT Liver Transplant Surgery Progress Note Name: Blair Gilbert CSN: [id number] Date: 10/30/2024 10:37 AM OR Date: 10/25/2024 [...] 1109 LACTATE 0.5 0.3* Imaging US Duplex Hka-Cun-Evzbwpc Comp Result Date: 10/28/2024 IMPRESSION: ABDOMINAL ULTRASOUND [...] Transplant Nephrology Progress Note Patient: Blair Gilbert [id number] Date of Admit: 10/25/2024. 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 Lauren Santos, DNP, INTERACTIVE ART DIRECTOR, AMUSEMENT EQUIPMENT OPERATOR- Transplant Nephrology [phone] Preferred contact: secure chat The HPI, ROS, [...] EDT Pt seen, examined, and discussed with TAX ATTORNEY on 10/30/2024. reviewed the chart including the labs and imaging studies. My additional comments below. 39 y.o. 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 Last BM Date: (captain room service). Admit Weight: 270 lb (122.5 kg) Current [...] Based on DBW of 93.1 kg Kcals/day: 4587-8432 (25-30 kcals/kg) Protein g/day: 140-190 (1.5-2.0 g/kg) [...] Dietitian - Solid Organ Transplant Contact via [employer] Chat * Anita Carrascoradha, PT - 10/29/2024 2:04 PM EDT Physical Therapy Initial Assessment Name: Blair Gilbert : 1985 Attending Physician: Semaj Mcnair III, MD Admission Diagnosis: Liver transplant recipient (CMS-HCC) [Z94.4] Date: 10/29/2024 Room: [place] [address]/[place] [address] Reviewed Pertinent hospital course: Yes Hospital Course [...] with functional mobility at: 4/10 or less Instructor Programmable Controllers Goal : Pt will ambulate 250' mod [...] transplant recipient (CMS-HCC) [Z94.4] Date: 10/29/2024 Room: [place] [address] [address] Reviewed Pertinent hospital course: Yes Hospital Course [...] Intervention(s): Ambulation/increased activity;Repositioned Therapist reported pain to: rubber stamps and dies supervisor Oxygen Supplemental Oxygen Supplemental Oxygen: None [...] distance ambulation in prep for IADL task Instructor Programmable Controllers Goal : Pt will complete bathing assessment and transfer skilled nursing goal to be met in: 2 weeks [...] List Diagnosis Decompensated cirrhosis ([facility]) Acute kidney injury superimposed on CKD ([facility] [...] Transplant Nephrology Progress Note Patient: Blair Gilbert [id number] SICU-28/USIC-28 Date of Admit: 10/25/2024. 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 Lauren Santos, SAMSON, INTERACTIVE ART DIRECTOR, AMUSEMENT EQUIPMENT OPERATOR- Transplant Nephrology [phone] Preferred contact: secure chat The HPI, ROS, [...] EDT Pt seen, examined, and discussed with TAX ATTORNEY on 10/29/2024. reviewed the chart including the labs and imaging studies. My additional comments below. 39 y.o. 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 S/p SLK 10/25-10/26 Has great UOP 4.2L; 720 drain output Aaron Gonzalez MD, MEd, FASN * Kenyetta Avilesken - 10/29/2024 10:07 AM EDT Liver Transplant Surgery Progress Note Name: Blair Gilbert CSN: [id number] Date: 10/29/2024 10:08 AM OR Date: 10/25/2024 [...] LACTATE 0.4* 0.5 0.3* Imaging US Duplex Pxt-Qqc-Oequikl Comp Result Date: 10/28/2024 IMPRESSION: ABDOMINAL ULTRASOUND [...] at 10/27/2024 10:38 AM EDT US Duplex Urk-Plh-Phaazde Comp Result Date: 10/27/2024 IMPRESSION: RIGHT UPPER [...] - 10/29/2465810/29/24 07 - 10/30/24 0659 Shift 1366-2335 5200-1554 4451-8527 24 Hour Total 2314-8817 7427-6039 0114-3731 24 Hour Total INTAKE P.O. 240 0 [...] IV infusion) 253.9 374.7 775.6 1404.2 Blood 1919 127 8944 Albumin 750 750 Volume (Transfuse RBC Transfusion Rate: Per dept routine) 310 310 Volume (Transfuse RBC Transfusion Rate: Per dept routine) 271 271 IV Piggyback 918.4 998 63 3842.4 Volume (mL) (micafungin (MYCAMINE) 50 mg in sodium chloride 0.9 % 100 mL Sxfn8Qcq IVPB) 99.9 99.9 Volume (mL) (albumin human [...] month of prophylaxis Lavell Kramer MD 10/29/[phone] * John Moreno MD - 10/29/2024 6:47 AM EDT SURGICAL ICU PROGRESS NOTE 10/29/2024 6:47 AM Name: Blair Gilbert CSN: [id number] HPI: Blair Gilbert is a 39 y.o. [...] blood-glucose meter (TRUE METRIX GLUCOSE METER) [facility] Use to test blood sugar up to 4 times a day. DEXCOM G7 FOOD STYLIST Misc Use reader as directed. DEXCOM G7 [...] at bedtime. lancets (ACCU-CHEK SOFTCLIX LANCETS) [facility] Use to test blood sugar up to 4 times a day. methocarbamoL (ROBAXIN) 500 MG tablet Take 1 tablet (500 mg total) by mouth 3 times a day. naloxone (NARCAN) 4 mg/actuation [place] Apply 1 spray in one nostril if [...] 37 37 35 PO2ART 245* 182* 92 UPD4DNG 22 21* 21* BEART -4.2* -4.8* -4.6* [...] at baseline or with provocation, shows no mdpkv-ew-jdiu atrial level shunt. - Pulmonary arteries: Systolic [...] pantoprazole 40mg daily, continue Last BM: SENIOR TECH MANUFACTURING ENGINEERING - suppository today Bowel regimen: Miralax today, [...] results for input(s): TEGANGLE , TEGKTIME , TPQAECPO13 , TEGMAXAMPL , TEGRTIME , CBMZ in [...] in sodium chloride 0.9 % 100 mL Scpz7Wnv IVPB 50 mg Every 24 hours 10/27/2024 -- Admin Instructions: PROTECT FROM LIGHT FLUSH LINE w/NSS PRIOR TO ADMINISTRATION Use Ilto9Ecc Adapter - Mix Thoroughly Before Administration Route: [...] instability DC today Arterial Line? R radial [place]- DC today Urinary Catheter? Berkowitz - Reason: [...] BID Continuous Infusions: HYDROmorphone 6 mg/30 mL HANDS AND DIAL INSPECTOR norepinephrine 4 mcg/min (10/27/24 2318) sodium chloride [...] 10/28/2459 10/28/24 07 - 10/29/24 0659 Shift 6576-5118 8960-6056 8408-5164 24 Hour Total 5481-5709 3072-5663 5463-9093 24 Hour Total INTAKE P.O. 0 120 [...] in sodium chloride 0.9 % 100 mL Iaca1Psj IVPB) 100 100 Volume (mL) (albumin human 5%) 126 126 Volume (mL) (potassium chloride (KCl)/Sterile water 50 mL 20 mEq/50 mL IVPB 20 mEq) 100 100 Volume (mL) (AMPicillin 1 g in sodium chloride 0.9% 100 mL IVPB (Zknf3Rzj)) 100.1 57 42.9 200 Volume (mL) (mycophenolate (CELLCEPT) 500 mg in dextrose 5% in water (D5W) 50 mL IVPB) 50 5.3 55.3 Shift Total(mL/kg) 2079.3(17) 1161(9.5) 787.3(6.4) 4027.6(32.9) OUTPUT Urine(mL/kg/hr) 2195(2.2) 1000(1) 900(0.9) 4095(1.4) 490 490 Urine 360 360 Output (mL) (IUC (Berkowitz) Triple-lumen (3-Way) 18 Fr.) 1835 4032 924 7169 490 490 Emesis/NG output 50 50 Drainage [...] month of prophylaxis Lavell Kramer MD 10/28/[phone] * Caron Santos CNP - 10/28/2024 9:00 AM EDT Images from the original note were not included. Transplant Nephrology Progress Note Patient: Blair Gilbert [id number] SICU-28/USIC-28 Date of Admit: 10/25/2024. 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 Lauren Santos, DNP, INTERACTIVE ART DIRECTOR, AMUSEMENT EQUIPMENT OPERATOR- Transplant Nephrology [phone] Preferred contact: secure chat The HPI, ROS, [...] EDT Pt seen, examined, and discussed with TAX ATTORNEY on 10/28/2024. reviewed the chart including the labs and imaging studies. My additional comments below. 39 y.o. 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 S/p SLK 10/25-10/26 Has great UOP 4.2L Aaron Gonzalez MD, MEd, FASN * Shay Plata MD - 10/28/2024 7:41 AM EDT Liver Transplant Surgery Progress Note Name: Blair Gilbert CSN: [id number] Date: 10/28/2024 11:05 AM OR Date: 10/25/2024 - 10/27/2024 Subjective: 1 Day Post-Op Received one unit pRBCs overnight On low dose levo this morning Increasing tachycardia Reports worsening pain, on HANDS AND DIAL INSPECTOR Tolerated sips of clears No nausea/vomiting, no [...] Oral BID Continuous: HYDROmorphone 6 mg/30 mL HANDS AND DIAL INSPECTOR norepinephrine Stopped (10/28/24 0637) sodium chloride 0.9 [...] at 10/27/2024 10:38 AM EDT US Duplex Wrs-Ttr-Clnwman Comp Result Date: 10/27/2024 IMPRESSION: RIGHT UPPER [...] [Z94.4] Neuro: - Multimodal pain control: dilaudid HANDS AND DIAL INSPECTOR, tylenol, robaxin. PRN dilaudid for breakthrough CV: [...] 10/28/2024 6:17 AM Name: Blair Gilbert CSN: [id number] HPI: Blair Gilbert is a 39 y.o. [...] to 4 times a day. DEXCOM G7 FOOD STYLIST Misc Use reader as directed. DEXCOM G7 [...] times a day. naloxone (NARCAN) 4 mg/actuation [place] Apply 1 spray in one nostril if [...] Oral BID Continuous: HYDROmorphone 6 mg/30 mL HANDS AND DIAL INSPECTOR insulin regular in 0.9 % sodium chloride [...] 37 37 35 PO2ART 245* 182* 92 VTV0MTX 22 21* 21* BEART -4.2* -4.8* -4.6* [...] at baseline or with provocation, shows no xpifh-bc-jnxp atrial level shunt. - Pulmonary arteries: Systolic [...] intubated,convert to PO today Last BM: SENIOR TECH MANUFACTURING ENGINEERING Bowel regimen: Miralax today, hold senna til [...] ml IV Fluids: HYDROmorphone 6 mg/30 mL HANDS AND DIAL INSPECTOR insulin regular in 0.9 % sodium chloride, [...] no concerns - 3 day berkowitz - ky 10/30 - Makes urine at baseline - [...] results for input(s): TEGANGLE , TEGKTIME , FTXTEFEE57 , TEGMAXAMPL , TEGRTIME , CBMZ in [...] in sodium chloride 0.9% 100 mL IVPB (Sntj5Wqm) (Completed) 1 g Every 6 hours scheduled 10/26/2024 10/28/2024 Admin Instructions: Dosage may need to be adjusted for renal dysfunction. Full dose is 1g IV q6h Use Omjg9Jfd Adapter - Mix Thoroughly Before Administration Notes to Pharmacy: On order management specialist estimated creatinine clearance is 35.9 mL/min (A) [...] in sodium chloride 0.9 % 100 mL Grja4Waf IVPB 50 mg Every 24 hours 10/27/2024 -- Admin Instructions: PROTECT FROM LIGHT FLUSH LINE w/NSS PRIOR TO ADMINISTRATION Use Wsmg8Xpw Adapter - Mix Thoroughly Before Administration Route: [...] Solid Organ Transplant Clinical Specialist Contact via [employer] Secure Chat Preferred O. [phone] * Chinedu Almeida RRT - 10/27/2024 1:10 [...] Yes MD Order No SBT No Yes [place] Coma Scale > 8 Yes Lab Results Component Value Date PHART 7.36 10/27/2024 PCO2 37 10/27/2024 PO2ART 245 (H) 10/27/2024 CEV5EBR 22 10/27/2024 BEART -4.2 (L) 10/27/2024 PYM7TWK 96.5 10/27/2024 B5HDMUVO 100 10/27/2024 Based on this SBT assessment [...] Transplant Surgery Progress Note Name: Blair Gilbert [facility]: [id number] Date: 10/27/2024 11:40 AM OR Date: 10/25/2024 - 10/27/2024 Subjective: * Day of Surgery * Remains intubated in SICU Sedated but appropriately nods to questions No acute distress Objective: BP 100/48 Pulse 89 Temp 99 ??F (37.2 ??C) ([place]) Resp 9 Ht 6' 4 (1.93 m) [...] at 10/27/2024 10:38 AM EDT US Duplex Nan-Lco-Mjamimg Comp Result Date: 10/27/2024 IMPRESSION: RIGHT UPPER [...] Hypertension Other hyperlipidemia Thrombocytopenia ([facility]) Renal mass, left Abdominal pain Hypokalemia CKD [...] 10/27/2024 7:16 AM Name: Blair Gilbert CSN: [id number] HPI: Blair Gilbert is a 39 y.o. [...] times a day. naloxone (NARCAN) 4 mg/actuation [place] Apply 1 spray in one nostril if [...] 47* 36 37 PO2ART 127* 91 137* ZNE1DRK 21* 22 20* BEART -5.4* -3.9* -6.4* [...] at baseline or with provocation, shows no gqrrj-pd-bxni atrial level shunt. - Pulmonary arteries: Systolic [...] pantoprazole while intubated, NPO Last BM: SENIOR TECH MANUFACTURING ENGINEERING Bowel regimen: Senna/Miralax when able Nausea: Zofran [...] 10/27/2024 0715 Gross per 24 hour Intake 12117.82 ml Output 7060 ml Net 6224.82 ml [...] results for input(s): TEGANGLE , TEGKTIME , QETMKAWL04 , TEGMAXAMPL , TEGRTIME , CBMZ in [...] in sodium chloride 0.9% 100 mL IVPB (Gqrb4Sso) 1 g Every 6 hours scheduled Admin Instructions: Dosage may need to be adjusted for renal dysfunction. Full dose is 1g IV q6h Use Gisb7Llt Adapter - Mix Thoroughly Before Administration Notes to Pharmacy: On order management specialist estimated creatinine clearance is 35.9 mL/min (A) (based on SCr of 3.87 mg/dL (H)). Route: Intravenous Linked Group 1: Placed in And Linked Group cefTRIAXone (ROCEPHIN) 2 g in sodium chloride 0.9 % 100 mL Csto8Khl Continuous - One Step Medications Only 10/27/2024 [...] R IJ Mac Arterial Line? R radial [place] Urinary Catheter? 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 naloxone (NARCAN) 4 mg/actuation [place] Apply 1 spray in one nostril if [...] Resource Strain: Low Risk (07/09/2024) Received from [facility] Overall Financial Resource Strain (CARDIA) Difficulty of [...] No Physical Activity: Unknown (07/14/2024) Received from [facility] Exercise Vital Sign Days of Exercise per Week: Patient unable to answer Minutes of Exercise per Session: Not on file Stress: Patient Unable To Answer (07/14/2024) Received from [facility] [place] of Occupational [employer] - Occupational Stress Questionnaire Feeling of Stress : Patient unable to answer Social Connections: Patient Unable To Answer (07/14/2024) Received from [facility] Social Connection and Isolation Panel [NHANES] [...] -- 5.4 ALBUMIN 3.2* 3.1* Invalid input(s): [facility] Other labs: Imaging Studies No results [...] Critical access hospital Surgery Liver Transplant Pager: [phone] 8:24 PM 10/25/2024 Cosigned by Semaj [...] Name: Blair Gilbert Date: 1985 Billing #: [id number] Date of Procedure: 10/25/2024 Diagnosis: End Stage Renal Disease Procedure: 1. Donor Kidney Transplant 2. Back Bench Preparation Donor Kidney 3. Baseline Kidney transplant biopsy 4. Insertion of Indwelling Stent 5. Removal of Perihepatic packing Surgeons * Flaquito Ba MD Pneumatic Jacketer MD Shayan Findings: Low Hockey stick incision [...] donor was ABO O and UNOS ID [id number], Match Run [id number] (SLK). This donor was a Donor after [...] was then wanded with the lap detection medical assistant. The incision was ex tented 2 [...] and closure. Flaquito Ba MD Transplant Surgeon placement coordinator * Flaquito Ba MD - 10/27/2024 6:15 AM EDT TRANSPLANT KIDNEY with bile duct reconstruction Brief Op Note Blair Gilbert 10/27/2024 Pre-op Diagnosis: Acute kidney injury superimposed on CKD (CMS-HCC) [N17.9, N18.9] Post-op Diagnosis: same Procedure(s): TRANSPLANT KIDNEY Surgeon(s): MD Semaj Washington III, MD Anesthesia: General Endotracheal Staff: Bonding And Composite Fabricator: Chinedu Quinn RN Scrub Person: ST Angela Fellow: Kemar Sahni MD 2nd Bonding And Composite Fabricator: Marty Clark RN 3rd Bonding And Composite Fabricator: Candis Mcdaniel RN FINDINGS Berkowitz 3 day Drains: Intraabdominal (perihepatic) UNOS ID [id number], Match Run [id number] Kid WIT 27 min Kid CIT 33 [...] (Berkowitz) Triple-lumen (3-Way) 18 Fr. (Active) Status Delta Drainage 10/26/241999 Collection Container Standard drainage bag [...] Washington III, MD Anesthesia: General Endotracheal Staff: Bonding And Composite Fabricator: Chinedu Quinn RN Relief Bonding And Composite Fabricator: Michela Amos RN Relief Scrub: Stephani Blake RN Scrub Person: ST Angela Fellow: Kemar Sahni MD 2nd Bonding And Composite Fabricator: Marty Clark RN 3rd Bonding And Composite Fabricator: Candis Mcdaniel RN Estimated Blood Loss: 300 [...] (Berkowitz) Triple-lumen (3-Way) 18 Fr. (Active) Status Delta Drainage 10/26/241999 Collection Container Standard drainage bag [...] day Drains: 2 Intraabdominal (perihepatic) UNOS ID [id number], Match Run [id number] Donor: young DCD NRP Kid WIT 27 [...] - 10/27/2024 12:00 AM EDT [facility] PATIENT NAME: BLAIR GILBERT DATE OF : 1985 CSN: [id number] PHYSICIAN: Semaj Mcnair III, MD ADMIT DATE: 10/25/2024 DICTATED BY: Semaj Mcnair III, MD SURGERY DATE: 10/27/2024 OPERATIVE REPORT SURGEON: Semaj Mcnair III, MD FEED MILLER SURGEON: Kemar Sahni MD. PREOPERATIVE DIAGNOSIS: Open [...] were made hemostatic with the argon beam track mechanic. We assessed the flows of the [...] a mucocele formation. We then performed a prqs-ac-jynr choledochocholedochostomy in an end to end fashion [...] small umbilicalhernia that was closed with a pgiesy-yg-pluii 0 PDS suture. At this point, we [...] complications. SEMAJ MCNAIR III, MD RCQ/AQ JOB#: [id number] * Semaj Mcnair III, MD - 10/26/2024 7:00 AM EDT Patient Name: Blair Gilbert Date: 1985 Billing #: [id number] Date of Procedure: 10/25/2024 - 10/26/2024 Diagnosis: Chronic Hepatic Failure without coma Procedure: 1. Orthotopic Liver Transplant 2. Back Bench Preparation Donor Liver 3. Temporary portocaval shunt 4. Perihepatic packing for control of hemorrhage 5. Placement of external choledochal stent 6. Temporary abdominal closure Attending surgeons: Semaj Mcnair III, MD Pneumatic Jacketer Surgeon(s): Sveta Judge MD Findings: Whole organ [...] This donor was ABO O and UNOSID [id number], Match Run [id number]. This was a 42-year-old donation after circulatory [...] After completion of the outflow anastomosis, a Kazakh clamp was placed across the donor suprahepatic [...] artery flows were then measured with the [employer] device. The portal flow was 3.4 L/min [...] Sveta Alves III, MD Anesthesia: General Staff: Bonding And Composite Fabricator: Mak Maher RN; Marty Clark RN Scrub Person: ST Angela Resident: Thuy Leon MD housekeeping/laundry supervisor: Jose Daniel Arana RRT Estimated Blood Loss: [...] Number of days: 5 Surgery Information: -UNOS#: [id number] -ABO: O to O -Recipient: SLK candidate [...] 1:19 PM EDTAssociated Order(s): IP CONSULT TO FORM PRESSER [facility] Transplant Discharge Education Note [...] Education Outcome: 3 - Comprehends albarado points lEle Gomez, MSN, RN, NPD- Diabetes Education Office [phone] Schedule: M-F 8:00am-4:30pm * Ben Weiss, RD - 10/27/2024 4:06 PM EDTAssociated Order(s): IP CONSULT TO NUTRITION SERVICES; IP CONSULT TO NUTRITION SERVICES TXP - Initial [facility] Medical Nutrition Therapy Reason(s) [...] +23.2L net volume. Last BM Date: (SENIOR TECH MANUFACTURING ENGINEERING). Admit Weight: 270 lb (122.5 kg) Current [...] Based on DBW of 93.1 kg Kcals/day: 9074-9871 (25-30 kcals/kg) Protein g/day: 140-190 (1.5-2.0 g/kg) [...] Dietitian - Solid Organ Transplant Contact via [employer] Chat * Lavell Kramer MD - 10/27/2024 11:09 AM EDTAssociated Order(s): INPATIENT CONSULT TO TRANSPLANT INFECTIOUS DISEASES Infectious Disease Consultation Patient: Blair Gilbert CSN: [id number] Assessment & Plan 39 y.o. M s/p [...] blood cx's if febrile Lavell Kramer MD [phone] Chief Complaint Long Qtc History of Present [...] Resource Strain: Low Risk (07/09/2024) Received from [facility] Overall Financial Resource Strain (CARDIA) Difficulty of [...] No Physical Activity: Unknown (07/14/2024) Received from [facility] Exercise Vital Sign Days of Exercise per Week: Patient unable to answer Minutes of Exercise per Session: Not on file Stress: Patient Unable To Answer (07/14/2024) Received from [facility] [place] of Occupational Health - Occupational Stress Questionnaire Feeling of Stress : Patient unable to answer Social Connections: Patient Unable To Answer (07/14/2024) Received from [facility] Social Connection and Isolation Panel [NHANES] [...] to 4 times a day. DEXCOM G7 FOOD STYLIST Misc Use reader as directed. DEXCOM G7 [...] times a day. 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 No indications for MAIL MESSENGER CONTRACTOR. Good UOP - Noted KT US WNL [...] preliminary until attending attestation. Lauren Santos, SAMSON, INTERACTIVE ART DIRECTOR, AMUSEMENT EQUIPMENT OPERATOR- Transplant Nephrology [phone] Preferred contact: secure chat [1] Allergies Allergen [...] Gonzalez MD, MEd, FASN * Marcellus Hebert, ANIMAL IMPERSONATOR, BACK DIGGER OPERATOR - 10/27/2024 10:21 AM EDT HEALTH Care Management/Social Work Assessment Patient Information Patient Name: Blair Gilbert Hospital Day: 2 Inpatient/Observation: Inpatient Admit Date: 10/25/2024 Admission Diagnosis: Liver transplant recipient (CMS-HCC) [Z94.4] Attending provider: Semaj Mcnair III, MD PCP: Enedina Mcguire NP Home Pharmacy: [facility] [address] [place] [address], [facility] [address] [place] [id number] [address] [facility] [address] [facility] [address] Issues related to obtaining medications: N/A Payor Information Medical Insurance Coverage: Payor: [facility] / Plan: [facility] G[facility]BAL / Product Type: *No Producttype* [...] History: 12 weeks of CD Treatement at [facility] Do you need Substance Abuse Treatment Resources?: [...] spouse at their one story home in [place]. 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 Spouse explained that he will [...] as appropriate. NUBIA Escalera, RONALDO Phone Number: [phone] * John Moreno MD - 10/26/2024 3:41 AM EDT SURGICAL ICU CONSULT NOTE 10/26/2024 3:41 AM Name: Blair Gilbert CSN: [id number] HPI: Blair Gilbert is a 39 y.o. [...] at 9:00 PM naloxone (NARCAN) 4 mg/actuation [place] Apply 1 spray in one nostril if [...] % 250 mL infusion 2.5 mcg/min (10/26/24 5479) insulin regular in 0.9 % sodium chloride norepinephrine 18 mcg/min (10/26/24 1913) vasopressin 0.04 Units/min (10/26/24 6714) PRN Meds: heparin (porcine) 5,000 unit/mL 10,000 [...] input(s): PHART , PCO2 , PO2ART , RVM1ZRV , BEART in the last 72 hours. [...] at baseline or with provocation, shows no xabib-ra-miio atrial level shunt. - Pulmonary arteries: Systolic [...] pantoprazole while intubated, NPO Last BM: SENIOR TECH MANUFACTURING ENGINEERING Bowel regimen: Senna/Miralax when able Nausea: Zofran PRN FLUID/ELECTROLYTES Recent Labs 10/25/242216 NA 137 K 2.1* CL 100 CO2 20* BUN 74* CREATININE 3.87* CALCIUM 9.3 PHOS 5.9* GLUCOSE 114* Intake/Output Summary (Last 24 hours) at 10/26/2024 0341 Last data filed at 10/26/2024 0326 Gross per 24 hour Intake 44996 ml Output 675 ml Net 10684 ml IV Fluids: EPINEPHrine (ADRENALIN) 10 mg [...] results for input(s): TEGANGLE , TEGKTIME , QCEYLDNA57 , TEGMAXAMPL , TEGRTIME , CBMZ in [...] in sodium chloride 0.9% 100 mL IVPB (Inza9Wgq) 2 g Every 6 hours 10/26/2024 -- Admin Instructions: Use Ayby1Qii Adapter - Mix Thoroughly Before Administration Notes to Pharmacy: On order management specialist estimated creatinine clearance is 35.9 mL/min (A) (based on SCr of 3.87 mg/dL (H)). Route: Intravenous AMPicillin 2 g in sodium chloride 0.9% 100 mL IVPB (Ugbx2Xgq) 2 g Once 10/26/2024 -- Admin Instructions: Use Uvcg5Lwz Adapter - Mix Thoroughly Before Administration Notes to Pharmacy: On order management specialist estimated creatinine clearance is 35.9 mL/min (A) (based on SCr of 3.87 mg/dL (H)). Route: Intravenous cefTRIAXone (ROCEPHIN) 2 g in sodium chloride 0.9 % 100 mL Nvwv0Jkb (Completed) 2 g Once 10/25/2024 10/26/2024 Admin Instructions: Use Tpdv4Uxj Adapter - Mix Thoroughly Before Administration Route: [...] 47 (H) 10/26/2024 PO2ART 127 (H) 10/26/2024 ZMN8ENW 21 (L) 10/26/2024 BEART -5.4 (L) 10/26/2024 JYU8HFY 94.6 (L) 10/26/2024 J2IRZMXA 98 10/26/2024 P:F ratio = 363 CARDIOVASCULAR: [...] Acute Care Surgery, and Surgical Critical Care [facility] Academic Office [phone] For Transfers, call [phone] documented in this encounter Nursing Notes * [...] Outcome: Progressing * Plan of Care - Yvonen Gale RN - 11/01/2024 1:29 AM EDT [...] Progressing * Care Coordination - NUBIA Escalera, BACK DIGGER OPERATOR - 10/31/2024 11:34 AM EDT [facility] Case Management/Social Work Department Progress [...] Mcguire NP Home Pharmacy: [facility] [address] [place] [address] [facility] [address] [facility] [address] [facility] NAA Baum - [address] [facility] [place] [id number] Medical Insurance Coverage: Payor: [facility] / Plan: [employer] / Product Type: *No Product type* / Other Pertinent Information MEREDITH received report from Transplant medical team. SW completed chart review. Per report patient is not medically ready to discharge. Patient recommended for home PT/OT and 2x weekly labs. SW followed up on [facility] referrals and submitted a few more [facility] referrals. Update: MEREDITH made nurse educator aware that there were no accepting [facility] agencies([facility], [facility], [facility]) and patient would need to outpatient for PT/OT and labs. Discharge Plan Anticipated discharge plan: Home with HHC vs Home with outpatient Anticipated discharge date: 11/01 CM/SW will continue to follow and remain available for discharge planning needs. NUBIA Escalera, RONALDO Cell [phone] * Plan of Care - Paulette Flannery [...] Citlaly Nova - 10/29/2024 1:53 PM EDT [facility] Case Management/Social Work Department Progress [...] Mcguire NP Home Pharmacy: [facility] [address] [address] [address] [facility] [address] [facility] [address] [facility] NAA Baum - [address] [place] [id number] Medical Insurance Coverage: Payor: [facility] [...] referral. SW submitted blanket HHC referral to [email or web address], [facility] [place], [facility], and [facility]. Awaiting responses. SW [...] available for discharge planning needs. NUBIA Rhodes, BACK DIGGER OPERATOR Inpatient Private Branch Exchange Operator/Care Coordination [phone] * Plan of Care - Soco Yap [...] Escalera LSW - 10/28/2024 2:29 PM EDT [facility] Case Management/Social Work Department Progress [...] Mcguire NP Home Pharmacy: [facility] [address] [place] [address] [facility] [address] [facility] [address] [facility] Deya NAA Falk - [address] [facility] [place] [address] [facility] [place] [address] Medical Insurance Coverage: Payor: [facility] / Plan: [employer] / [...] discharge planning needs. NUBIA Escalera, RONALDO Cell [phone] * Plan of Care - Elaine Carrillo [...] at all times. Outcome: Completed Problem: Non-violent, jmq-hjtn-ncofmzyhfzs restraints Description: Less restrictive alternative interventions will [...] of medical procedures, or protection of medical researcher access. Outcome: Completed * Plan of Care [...] foods as appropriate. Outcome: Progressing Problem: Non-violent, cac-oqui-cnurotgaylf restraints Description: Less restrictive alternative interventions will [...] of medical procedures, or protection of medical researcher access. Outcome: Progressing * Plan of Care - Shanel Shen RN - 10/27/2024 9:00 AM EDT Problem: Non-violent, iij-jgbi-dmvtgishqgv restraints Description: Less restrictive alternative interventions will [...] - 10/26/2024 7:41 PM EDT Problem: Non-violent, tpf-jbnq-olpobkfibjt restraints Description: Less restrictive alternative interventions will [...] of medical procedures, or protection of medical researcher access. Outcome: Not Progressing Patient in bilateral [...] restraint flowsheet for further documentation. Problem: Non-violent, kho-oliv-ikdpviejhhx restraints Description: Less restrictive alternative interventions will [...] of medical procedures, or protection of medical researcher access. Outcome: Progressing * Plan of Care [...] 12/05/2024 8:01 AM EDT Hospital Encounter [facility] ENDOSCOPY [address] [place] [phone] Chris Orosco MD [address] [place] [phone] 12/05/2024 8:01 AM EDT - 12/05/2024 8:31 AM EDT Surgery [facility] ENDOSCOPY [address] [place] [phone] Chris Orosco MD [address] [place] [phone] EGD Scheduled Orders Name Type Priority Associated [...] Routine 10/31/2024 11:59 AM EDT US DUPLEX PLV-MXDTQQ-WXVSIIV COMPLETE Routine 10/31/2024 10:19 AM EDT US [...] Routine 10/28/2024 5:31 PM EDT US DUPLEX BMQ-KBUWDU-PBGUCXV COMPLETE STAT 10/28/2024 4:23 PM EDT US [...] Routine 10/27/2024 10:00 AM EDT US DUPLEX UZB-YDFZYW-MEPHNOA COMPLETE STAT 10/27/2024 9:51 AM EDT US [...] Acute kidney injury superimposed on CKD (CMS-HCC) OR RENAL ALTRNSPLJ IMPLTJ GRF W/PATTERN SETTER NEPHRECTOMY 10/27/2024 2:32 AM EDT Acute kidney [...] PM EDT ECG 12-LEAD (MUSE) STAT 10/26/2024 2:19 PM EDT POC GLU MONITORING DEVICE Routine [...] - 100 mg/dL 11/02/2024 5:45 PM EDT [facility] Blood 11/02/2024 5:44 PM EDT 11/02/2024 5:45 PM EDT us Semaj Mcnair III, MD POINT OF CARE TEST ORDERABLES Final Result [facility] [address] * (ABNORMAL) POC Glucose Monitoring Device (11/02/2024 3:34 PM EDT) POC Glucose Monitoring Device 208(H) 70 - 100 mg/dL 11/02/2024 3:35 PM EDT [facility] Blood 11/02/2024 3:34 PM EDT 11/02/2024 3:35 PM EDT us Semaj Mcnair III, MD POINT OF CARE TEST ORDERABLES Final Result [facility] [address]. [address] * (ABNORMAL) POC Glucose Monitoring Device (11/02/2024 1:18 PM EDT) POC Glucose Monitoring Device 225(H) 70 - 100 mg/dL 11/02/2024 1:19 PM EDT [facility] Blood 11/02/2024 1:18 PM EDT 11/02/2024 1:19 PM EDT Semaj Mcnair III, MD POINT OF CARE TEST ORDERABLES Final Result [facility] [address] [facility] * (ABNORMAL) POC Glucose Monitoring Device (11/02/2024 8:59 AM EDT) POC Glucose Monitoring Device 129(H) 70 - 100 mg/dL 11/02/2024 9:00 AM EDT [facility] Blood 11/02/2024 8:59 AM EDT 11/02/2024 9:00 AM EDT Semaj Mcnair III, MD POINT OF CARE TEST ORDERABLES Final Result Performing Organization Address City/State/[facility] Co de Phone Number [facility] [address] [facility] * Tacrolimus level (11/02/2024 5:53 AM EDT) Tacrolimus (LC-MS) 7.4 3.0 - 15.0 ng/mL 11/02/2024 2:23 PM EDT [facility] Comment:Performed via liquid chromatography tandem mass spectrometry. Detection limit: 1 ng/mL. Individual target concentrations may vary due to target organ and time after transplant. This test has been developed and its performance characteristics determined by [facility] which is certified under [...] PharmD LAB BLOOD ORDERABLES Denisse l Result [facility] [address] * (ABNORMAL) Renal Function Panel w/EGFR (11/02/2024 5:53 AM EDT) Sodium 140 133 - 146 mmol/L 11/02/2024 6:47 AM EDT [facility] Potassium 3.3(L) 3.5 - 5.3 mmol/L 11/02/2024 6:47 AM EDT [facility] Chloride 107 98 - 110 mmol/L 11/02/2024 6:47 AM EDT [facility] CO2 25 21 - 33 mmol/L 11/02/2024 6:47 AM EDT [facility] Anion Gap 8 3 - 16 mmol/L 11/02/2024 6:47 AM EDT [facility] BUN 31(H) 7 - 25 mg/dL 11/02/2024 6:47 AM EDT [facility] Creatinine 1.08 0.60 - 1.30 mg/dL 11/02/2024 6:47 AM EDT [facility] Glucose 150(H) 70 - 100 mg/dL 11/02/2024 6:47 AM EDT [facility] Calcium 7.8(L) 8.6 - 10.3 mg/dL 11/02/2024 6:47 AM EDT [facility] Phosphorus 2.0(L) 2.1 - 4.7 mg/dL 11/02/2024 6:47 AM EDT [facility] Albumin 3.2(L) 3.5 - 5.7 g/dL 11/02/2024 6:47 AM EDT [facility] Osmolality, Calculated 299 278 - 305 mOsm/kg 11/02/2024 6:47 AM EDT [facility] EGFR 88 11/02/2024 6:47 AM EDT [facility] Comment:As of 2021, the [...] 5:53 AM EDT 11/02/2024 6:12 AM EDT [facility] BLOOD ORDERABLES Denisse l Result [facility] [address] * (ABNORMAL) Magnesium (11/02/2024 5:53 AM EDT) Magnesium 1.3(L) 1.5 - 2.5 mg/dL 11/02/2024 6:47 AM EDT [facility] Plasma 11/02/2024 5:53 AM EDT 11/02/2024 6:12 AM EDT [employer] LAB BLOOD ORDERABLES Denisse l Result [facility] [address] * (ABNORMAL) Hepatic Function Panel (11/02/2024 5:53 AM EDT) Total Bilirubin 1.6(H) 0.0 - 1.5 mg/dL 11/02/2024 6:47 AM EDT [facility] Bilirubin, Direct 0.81(H) 0.00 - 0.40 mg/dL 11/02/2024 6:47 AM EDT [facility] AST 30 13 - 39 U/L 11/02/2024 6:47 AM EDT [facility] ALT 66(H) 7 - 52 U/L 11/02/2024 6:47 AM EDT [facility] Alkaline Phosphatase 126(H) 36 - 125 U/L 11/02/2024 6:47 AM EDT [facility] Total Protein 4.6(L) 6.4 - 8.9 g/dL 11/02/2024 6:47 AM EDT [facility] Albumin 3.2(L) 3.5 - 5.7 g/dL 11/02/2024 6:47 AM EDT [facility] Bilirubin, Indirect 0.79 0.00 - 1.10 mg/dL 11/02/2024 6:47 AM EDT [facility] Plasma 11/02/2024 5:53 AM EDT 11/02/2024 6:12 AM EDT us Beata Horner [employer] LAB BLOOD ORDERABLES Denisse valle Result [facility] [address] * (ABNORMAL) CBC (11/02/2024 5:53 AM EDT) WBC 5.8 3.8 - 10.8 10E3/uL 11/02/2024 6:21 AM EDT [facility] RBC 3.12(L) 4.20 - 5.80 10E6/uL 11/02/2024 6:21 AM EDT [facility] Hemoglobin 9.2(L) 13.2 - 17.1 g/dL 11/02/2024 6:21 AM EDT [facility] Hematocrit 27.5(L) 38.5 - 50.0 % 11/02/2024 6:21 AM EDT [facility] MCV 87.9 80.0 - 100.0 fL 11/02/2024 6:21 AM EDT [facility] MCH 29.5 27.0 - 33.0 pg 11/02/2024 6:21 AM EDT [facility] MCHC 33.5 32.0 - 36.0 g/dL 11/02/2024 6:21 AM EDT [facility] RDW 17.5(H) 11.0 - 15.0 % 11/02/2024 6:21 AM EDT [facility] Platelets 61(L) 140 - 400 10E3/uL 11/02/2024 6:21 AM EDT [facility] MPV 7.9 7.5 - 11.5 fL 11/02/2024 6:21 AM EDT [facility] Whole Blood 11/02/2024 5:5 3 AM EDT 11/02/2024 6:12 AM EDT Beata Horner [facility] LAB BLOOD ORDERABLES Denisse l Result [facility] [address] [facility]. [address] * (ABNORMAL) POC Glucose Monitoring Device (11/01/2024 9:26 PM EDT) POC Glucose Monitoring Device 199(H) 70 - 100 mg/dL 11/01/2024 9:27 PM EDT [facility] Blood 11/01/2024 9:26 PM EDT 11/01/2024 9:27 PM EDT Semaj Mcnair III, MD POINT OF CARE TEST ORDERABLES Final Result [facility] [address] * (ABNORMAL) POC Glucose Monitoring Device (11/01/2024 5:04 PM EDT) POC Glucose Monitoring Device 255(H) 70 - 100 mg/dL 11/01/2024 5:05 PM EDT [facility] Blood 11/01/2024 5:04 PM EDT 11/01/2024 5:05 PM EDT us Semaj Mcnair III, MD POINT OF CARE TEST ORDERABLES Final Result [facility] [address] [place] [address], [facility] * (ABNORMAL) Renal Function Panel w/EGFR, STAT (11/01/2024 2:17 PM EDT) Sodium 139 133 - 146 mmol/L 11/01/2024 3:10 PM EDT [facility] Potassium 3.3(L) 3.5 - 5.3 mmol/L 11/01/2024 3:10 PM EDT [facility] Chloride 107 98 - 110 mmol/L 11/01/2024 3:10 PM EDT [facility] CO2 24 21 - 33 mmol/L 11/01/2024 3:10 PM EDT [facility] Anion Gap 8 3 - 16 mmol/L 11/01/2024 3:10 PM EDT [facility] BUN 35(H) 7 - 25 mg/dL 11/01/2024 3:10 PM EDT [facility] Creatinine 1.22 0.60 - 1.30 mg/dL 11/01/2024 3:10 PM EDT [facility] Glucose 203(H) 70 - 100 mg/dL 11/01/2024 3:10 PM EDT [facility] Calcium 8.3(L) 8.6 - 10.3 mg/dL 11/01/2024 3:10 PM EDT [facility] Phosphorus 2.2 2.1 - 4.7 mg/dL 11/01/2024 3:10 PM EDT [facility] Albumin 3.4(L) 3.5 - 5.7 g/dL 11/01/2024 3:10 PM EDT [facility] Osmolality, Calculated 302 278 - 305 mOsm/kg 11/01/2024 3:10 PM EDT [facility] EGFR 76 11/01/2024 3:10 PM EDT [facility] Comment:As of 2021, the [...] Marks MD LAB BLOOD ORDERABLES Final Result [facility] [address] * X-ray Portable Abdomen AP view [...] - 100 mg/dL 11/01/2024 12:23 PM EDT [facility] Blood 11/01/2024 12:2 2 PM EDT 11/01/2024 12:23 PM EDT Semaj Mcnair III, MD POINT OF CARE TEST ORDERABLES Final Result Performing Organization Address [facility] Co de Phone Number [facility] [address] [facility]. [address] * (ABNORMAL) POC Glucose Monitoring Device (11/01/2024 8:50 AM EDT) POC Glucose Monitoring Device 175(H) 70 - 100 mg/dL 11/01/2024 8:51 AM EDT [facility] Blood 11/01/2024 8:50 AM EDT 11/01/2024 8:51 AM EDT Semaj Mcnair III, MD POINT OF CARE TEST ORDERABLES Final Result Performing Organization Address City/[facility]/ZIP Co de Phone Number [facility] [address] * Tacrolimus level (11/01/2024 6:01 AM EDT) Pathologist [facility] Tacrolimus (LC-MS) 7.5 3.0 - 15.0 ng/mL 11/01/2024 12:14 PM EDT [facility] Comment:Performed via liquid chromatography tandem mass spectrometry. Detection limit: 1 ng/mL. Individual target concentrations may vary due to target organ and time after transplant. This test has been developed and its performance characteristics determined by [facility] which is certified under [...] PharmD LAB BLOOD ORDERABLES Denisse tori Result [facility] [address] [facility]. [address] * (ABNORMAL) Renal Function Panel w/EGFR (11/01/2024 6:01 AM EDT) Pathologist [facility] Sodium 139 133 - 146 mmol/L 11/01/2024 6:57 AM EDT [facility] Potassium 3.3(L) 3.5 - 5.3 mmol/L 11/01/2024 6:57 AM EDT [facility] Chloride 108 98 - 110 mmol/L 11/01/2024 6:57 AM EDT [facility] CO2 22 21 - 33 mmol/L 11/01/2024 6:57 AM EDT [facility] Anion Gap 9 3 - 16 mmol/L 11/01/2024 6:57 AM EDT [facility] BUN 37(H) 7 - 25 mg/dL 11/01/2024 6:57 AM EDT [facility] Creatinine 1.30 0.60 - 1.30 mg/dL 11/01/2024 6:57 AM EDT [facility] Glucose 163(H) 70 - 100 mg/dL 11/01/2024 6:57 AM EDT [facility] Calcium 8.2(L) 8.6 - 10.3 mg/dL 11/01/2024 6:57 AM EDT [facility] Phosphorus 2.9 2.1 - 4.7 mg/dL 11/01/2024 6:57 AM EDT [facility] Albumin 3.1(L) 3.5 - 5.7 g/dL 11/01/2024 6:57 AM EDT [facility] Osmolality, Calculated 300 278 - 305 mOsm/kg 11/01/2024 6:57 AM EDT [facility] EGFR 71 11/01/2024 6:57 AM EDT [facility] Comment:As of 2021, the [...] 11/01/2024 6:20 AM EDT us Beata Horner [employer] LAB BLOOD ORDERABLES Denisse l Result [facility] [address] [employer] [address] * Magnesium (11/01/2024 6:01 AM EDT) Magnesium 1.5 1.5 - 2.5 mg/dL 11/01/2024 6:57 AM EDT [facility] Plasma 11/01/2024 6:01 AM EDT 11/01/2024 6:20 AM EDT Beata Horner [facility] BLOOD ORDERABLES Denisse l Result Performing Organization Address [facility]/State/ZIP Co de Phone Number [facility] [address] * (ABNORMAL) Hepatic Function Panel (11/01/2024 6:01 AM EDT) Total Bilirubin 2.0(H) 0.0 - 1.5 mg/dL 11/01/2024 6:57 AM EDT [facility] Bilirubin, Direct 1.06(H) 0.00 - 0.40 mg/dL 11/01/2024 6:57 AM EDT [facility] AST 21 13 - 39 U/L 11/01/2024 6:57 AM EDT [facility] ALT 62(H) 7 - 52 U/L 11/01/2024 6:57 AM EDT [facility] Alkaline Phosphatase 114 36 - 125 U/L 11/01/2024 6:57 AM EDT [facility] Total Protein 4.6(L) 6.4 - 8.9 g/dL 11/01/2024 6:57 AM EDT [facility] Albumin 3.1(L) 3.5 - 5.7 g/dL 11/01/2024 6:57 AM EDT [facility] Bilirubin, Indirect 0.94 0.00 - 1.10 mg/dL 11/01/2024 6:57 AM EDT [facility] Plasma 11/01/2024 6:01 AM EDT 11/01/2024 6:20 AM EDT Beata Horner [employer] LAB BLOOD ORDERABLES Denisse l Result [facility] [address] * (ABNORMAL) CBC (11/01/2024 6:01 AM EDT) WBC 5.9 3.8 - 10.8 10E3/uL 11/01/2024 6:29 AM EDT [facility] RBC 3.19(L) 4.20 - 5.80 10E6/uL 11/01/2024 6:29 AM EDT [facility] Hemoglobin 9.5(L) 13.2 - 17.1 g/dL 11/01/2024 6:29 AM EDT [facility] Hematocrit 27.8(L) 38.5 - 50.0 % 11/01/2024 6:29 AM EDT [facility] MCV 87.1 80.0 - 100.0 fL 11/01/2024 6:29 AM EDT [facility] MCH 29.9 27.0 - 33.0 pg 11/01/2024 6:29 AM EDT [facility] MCHC 34.3 32.0 - 36.0 g/dL 11/01/2024 6:29 AM EDT [facility] RDW 17.4(H) 11.0 - 15.0 % 11/01/2024 6:29 AM EDT [facility] Platelets 56(L) 140 - 400 10E3/uL 11/01/2024 6:29 AM EDT [facility] MPV 8.3 7.5 - 11.5 fL 11/01/2024 6:29 AM EDT [facility] Whole Blood 11/01/2024 6:01 AM EDT 11/01/2024 6:19 AM EDT Beata Horner [facility] BLOOD ORDERABLES Denisse l Result [facility] [address] * (ABNORMAL) POC Glucose Monitoring Device (10/31/2024 9:15 PM EDT) POC Glucose Monitoring Device 171(H) 70 - 100 mg/dL 10/31/2024 9:15 PM EDT [facility] Blood 10/31/2024 9:15 PM EDT 10/31/2024 9:15 PM EDT Semaj Mcnair III, MD POINT OF CARE TEST ORDERABLES Final Result [facility] [address] * (ABNORMAL) POC Glucose Monitoring Device (10/31/2024 5:56 PM EDT) POC Glucose Monitoring Device 179(H) 70 - 100 mg/dL 10/31/2024 5:57 PM EDT [facility] Blood 10/31/2024 5:56 PM EDT 10/31/2024 5:57 PM EDT Semaj Mcnair III, MD POINT OF CARE TEST ORDERABLES Final Result [facility] [address] * CT Abdomen and Pelvis WO [...] Adrenal gland: No focal nodule seen. Kidneys: [place] kidneys noted with nonobstructing calcifications on the right. Findings of postsurgical changes in the left [place] kidney. Mild right hydronephrosis without an obstructive [...] Adrenal gland: No focal nodule seen. Kidneys: [place] kidneys noted with nonobstructing calcifications on theright. Findings of postsurgical changes in the left [place] kidney. Mildright hydronephrosis without an obstructive course [...] QT: 400 ms QTc: 456 ms P Bono: 49 degrees R Bono: 3 degrees T Bono: 14 degrees Diagnosis Line: NORMAL SINUS RHYTHM ^ NORMAL ECG ^ ^ Confirmed by MD JEANETTE, TORI ([id number]) on 11/02/2024 6:56:52 AM Priti Geiger CNP ECG ORDERABLES Final Result MUSE * (ABNORMAL) Urinalysis w/Rfl to Microscopic (10/31/2024 1:18 PM EDT) Color, UA Straw Yellow,Straw 10/31/2024 1:46 PM EDT [facility] Clarity, UA Clear Clear 10/31/2024 1:46 PM EDT [facility] Specific Delta, UA 1.013 1.005 - 1.035 10/31/2024 1:46 PM EDT [facility] pH, UA 6.5 5.0 - 8.0 10/31/2024 1:46 PM EDT [facility] Protein, UA Negative Negative mg/dL 10/31/2024 1:46 PM EDT [facility] Glucose, UA Negative Negative mg/dL 10/31/2024 1:46 PM EDT [facility] Ketones, UA Negative Negative mg/dL 10/31/2024 1:46 PM EDT [facility] Bilirubin, UA Negative Negative 10/31/2024 1:46 PM EDT [facility] Blood, UA Large(A) Negative 10/31/2024 1:46 PM EDT [facility] Nitrite, UA Negative Negative 10/31/2024 1:46 PM EDT [facility] Urobilinogen, UA <2.0 0.2 - 1.9 mg/dL 10/31/2024 1:46 PM EDT [facility] Leukocyte Esterase, UA Negative Negative 10/31/2024 1:46 PM EDT [facility] RBC, UA >100(H) 0 - 3 /HPF 10/31/2024 1:46 PM EDT [facility] WBC, UA 3 0 - 5 /HPF 10/31/2024 1:46 PM EDT [facility] Hyaline Casts, UA 3(H) 0 - 2 /LPF 10/31/2024 1:46 PM EDT [facility] Urine 10/31/2024 1:18 PM EDT 10/31/2024 1:32 PM EDT Priti Geiger [facility] URINE ORDERABLES Final Result [facility] [address] * (ABNORMAL) Post Kidney Transplant Urine Culture (10/31/2024 1:18 PM EDT) Culture Result Enterococcus faecium, Vancomycin Resistant(A) [facility] Comment: 1,000- <10,000 cfu/mL [...] SARMAD >=32: Resistant Comment:See Results Priti Geiger [facility] MICROBIOLOGY - GENERAL ORDERA BLES Final Result Performing Organization Address City/[facility]/ZIP Co de Phone Number [facility] [address] [facility]. [address] * (ABNORMAL) POC Glucose Monitoring Device (10/31/2024 11:59 AM EDT) [facility] Signature POC Glucose Monitoring Device 130(H) 70 - 100 mg/dL 10/31/2024 12:21 PM EDT [facility] Blood 10/31/2024 11:5 9 AM EDT 10/31/2024 12:21 PM EDT Semaj Mcnair III, MD POINT OF CARE TEST ORDERABLES Final Result Performing Organization Address [facility] Co de Phone Number [facility] [address] [facility] * US Abdomen Limited (10/31/2024 10:19 [...] EXAM: US ABDOMEN LIMITED EXAM: US DUPLEX [id number] COMPLETE INDICATION: Post-op liver transplant COMPARISON: None [...] visualized secondary to poor acoustic windows. The [place] right kidney measures 11.6 cm in length. [...] EXAM: US ABDOMEN LIMITED EXAM: US DUPLEX [id number] COMPLETE INDICATION: Post-op liver transplant COMPARISON: None [...] well visualized secondary to poor acousticwindows. The [place] right kidney measures 11.6 cm in length. [...] 10/31/2024 10:35 AM EDT us Beata Horner [employer] IMG US ORDERABLES Final R esult * [...] 10/31/2024 10:29 AM EDT us Beata Horner [facility] IM US ORDERABLES Final R esult * US Duplex Osu-Ldl-Iqvypax Comp (10/31/2024 10:19 AM EDT) Anatomical Region [...] EXAM: US ABDOMEN LIMITED EXAM: US DUPLEX [id number] COMPLETE INDICATION: Post-op liver transplant COMPARISON: None [...] visualized secondary to poor acoustic windows. The [place] right kidney measures 11.6 cm in length. [...] EXAM: US ABDOMEN LIMITED EXAM: US DUPLEX [id number] COMPLETE INDICATION: Post-op liver transplant COMPARISON: None [...] well visualized secondary to poor acousticwindows. The [place] right kidney measures 11.6 cm in length. [...] MD at 10/31/2024 10:35 AM EDT Beata Garland Evens [employer] IMG US ORDERABLES Final R esult * ECG 12-lead (MUSE) (10/31/2024 8:57 AM EDT) 10/31/2024 8:57 AM EDT Narrative MUSE - 11/01/2024 9:21 AM EDT Ventricular Rate: 83 BPM Atrial Rate: 83 BPM P-R Interval: 168 ms QRS Duration: 102 ms QT: 392 ms QTc: 460 ms P Bono: 64 degrees R Bono: -18 degrees T Bono: 7 degrees Diagnosis Line: NORMAL SINUS RHYTHM ^ NORMAL ECG ^ ^ Confirmed by MD JOE, KIMBERLYIIEbony ([id number]) on 11/01/2024 9:21:13 AM Priti Geiger [facility] ECG ORDERABLES Final Result MUSE * (ABNORMAL) POC Glucose Monitoring Device (10/31/2024 8:44 AM EDT) [facility] POC Glucose Monitoring Device 145(H) 70 - 100 mg/dL 10/31/2024 8:45 AM EDT [facility] Blood 10/31/2024 8:44 AM EDT 10/31/2024 8:44 AM EDT Semaj Mcnair III, MD POINT OF CARE TEST ORDERABLES Final Result [facility] [address] * Tacrolimus level (10/31/2024 6:40 AM EDT) [facility] Tacrolimus (LC-MS) 8.4 3.0 - 15.0 ng/mL 10/31/2024 10:05 AM EDT [facility] Comment:Performed via liquid chromatography tandem mass spectrometry. Detection limit: 1 ng/mL. Individual target concentrations may vary due to target organ and time after transplant. This test has been developed and its performance characteristics determined by [facility] which is certified under [...] PharmD LAB BLOOD ORDERABLES Denisse valle Result [facility] [address] [place] [address], [facility] * (ABNORMAL) Renal Function Panel w/EGFR (10/31/2024 6:40 AM EDT) Sodium 141 133 - 146 mmol/L 10/31/2024 8:09 AM EDT [facility] Potassium 3.5 3.5 - 5.3 mmol/L 10/31/2024 8:09 AM EDT [facility] Chloride 111(H) 98 - 110 mmol/L 10/31/2024 8:09 AM EDT [facility] CO2 20(L) 21 - 33 mmol/L 10/31/2024 8:09 AM EDT [facility] Anion Gap 10 3 - 16 mmol/L 10/31/2024 8:09 AM EDT [facility] BUN 54(H) 7 - 25 mg/dL 10/31/2024 8:09 AM EDT [facility] Creatinine 1.75(H) 0.60 - 1.30 mg/dL 10/31/2024 8:09 AM EDT [facility] Glucose 136(H) 70 - 100 mg/dL 10/31/2024 8:09 AM EDT [facility] Calcium 8.7 8.6 - 10.3 mg/dL 10/31/2024 8:09 AM EDT [facility] Phosphorus 4.1 2.1 - 4.7 mg/dL 10/31/2024 8:09 AM EDT [facility] Albumin 3.2(L) 3.5 - 5.7 g/dL 10/31/2024 8:09 AM EDT [facility] Osmolality, Calculated 309(H) 278 - 305 mOsm/kg 10/31/2024 8:09 AM EDT [facility] EGFR 50 10/31/2024 8:09 AM EDT [facility] Comment:As of 2021, the [...] EDT 10/31/2024 7:35 AM EDT Beata Horner [employer] LAB BLOOD ORDERABLES Denisse l Result [facility] [address] [place], [place] [address] * Magnesium (10/31/2024 6:40 AM EDT) Magnesium 1.8 1.5 - 2.5 mg/dL 10/31/2024 8:09 AM EDT [facility] Plasma 10/31/2024 6:40 AM EDT 10/31/2024 7:35 AM EDT Znaptager Evens [facility] BLOOD ORDERABLES Denisse l Result [facility] [address] [id number], [facility] * (ABNORMAL) Hepatic Function Panel (10/31/2024 6:40 AM EDT) Total Bilirubin 2.7(H) 0.0 - 1.5 mg/dL 10/31/2024 8:09 AM EDT [facility] Bilirubin, Direct 1.57(H) 0.00 - 0.40 mg/dL 10/31/2024 8:09 AM EDT [facility] AST 26 13 - 39 U/L 10/31/2024 8:09 AM EDT [facility] ALT 68(H) 7 - 52 U/L 10/31/2024 8:09 AM EDT [facility] Alkaline Phosphatase 112 36 - 125 U/L 10/31/2024 8:09 AM EDT [facility] Total Protein 4.7(L) 6.4 - 8.9 g/dL 10/31/2024 8:09 AM EDT [facility] Albumin 3.2(L) 3.5 - 5.7 g/dL 10/31/2024 8:09 AM EDT [facility] Bilirubin, Indirect 1.13(H) 0.00 - 1.10 mg/dL 10/31/2024 8:09 AM EDT [facility] Plasma 10/31/2024 6:40 AM EDT 10/31/2024 7:35 AM EDT Beata Horner [facility] BLOOD ORDERABLES Denisse l Result [facility] [address] [place] [address], [facility] * (ABNORMAL) CBC (10/31/2024 6:40 AM EDT) WBC 6.0 3.8 - 10.8 10E3/uL 10/31/2024 8:05 AM EDT [facility] RBC 3.14(L) 4.20 - 5.80 10E6/uL 10/31/2024 8:05 AM EDT [facility] Hemoglobin 9.6(L) 13.2 - 17.1 g/dL 10/31/2024 8:05 AM EDT [facility] Hematocrit 27.5(L) 38.5 - 50.0 % 10/31/2024 8:05 AM EDT [facility] MCV 87.6 80.0 - 100.0 fL 10/31/2024 8:05 AM EDT [facility] MCH 30.7 27.0 - 33.0 pg 10/31/2024 8:05 AM EDT [facility] MCHC 35.0 32.0 - 36.0 g/dL 10/31/2024 8:05 AM EDT [facility] RDW 17.9(H) 11.0 - 15.0 % 10/31/2024 8:05 AM EDT [facility] Platelets 44(L) 140 - 400 10E3/uL 10/31/2024 8:05 AM EDT [facility] Comment: CNV Specimen checked for clots. None detected. MPV 8.9 7.5 - 11.5 fL 10/31/2024 8:05 AM EDT [facility] Whole Blood 10/31/2024 6:40 AM EDT 10/31/2024 7:34 AM EDT us Beata Horner [facility] BLOOD ORDERABLES Denisse l Result Performing Organization Address City/[facility]/ZIP Co de Phone Number [facility] [address] * (ABNORMAL) POC Glucose Monitoring Device (10/30/2024 9:01 PM EDT) [facility] POC Glucose Monitoring Device 144(H) 70 - 100 mg/dL 10/30/2024 9:02 PM EDT [facility] Blood 10/30/2024 9:01 PM EDT 10/30/2024 9:01 PM EDT Semaj Mcnair III, MD POINT OF CARE TEST ORDERABLES Final Result [facility] [address] * (ABNORMAL) POC Glucose Monitoring Device (10/30/2024 5:37 PM EDT) POC Glucose Monitoring Device 124(H) 70 - 100 mg/dL 10/30/2024 5:47 PM EDT [facility] Blood 10/30/2024 5:37 PM EDT 10/30/2024 5:47 PM EDT Semaj Mcnair III, MD POINT OF CARE TEST ORDERABLES Final Result [facility] [address] [facility] * (ABNORMAL) POC Glucose Monitoring Device (10/30/2024 7:26 AM EDT) POC Glucose Monitoring Device 150(H) 70 - 100 mg/dL 10/30/2024 7:27 AM EDT [facility] Blood 10/30/2024 7:26 AM EDT 10/30/2024 7:27 AM EDT Semaj Mcnair III, MD POINT OF CARE TEST ORDERABLES Final Result [facility] [address] [facility] * Tacrolimus level (10/30/2024 7:13 AM EDT) Tacrolimus (LC-MS) 9.5 3.0 - 15.0 ng/mL 10/30/2024 2:53 PM EDT [facility] Comment:Performed via liquid chromatography tandem mass spectrometry. Detection limit: 1 ng/mL. Individual target concentrations may vary due to target organ and time after transplant. This test has been developed and its performance characteristics determined by [facility] which is certified under [...] EDT 10/30/2024 7:26 AM EDT Priti Geiger [employer] LAB BLOOD ORDERABLES Final Re sult [facility] [address] * ECG 12-lead (MUSE) (10/30/2024 6:51 AM EDT) 10/30/2024 6:51 AM EDT Narrative MUSE - 11/01/2024 9:21 AM EDT Ventricular Rate: 92 BPM Atrial Rate: 92 BPM P-R Interval: 174 ms QRS Duration: 96 ms QT: 376 ms QTc: 464 ms P Bono: 54 degrees R Bono: -24 degrees T Bono: 11 degrees Diagnosis Line: NORMAL SINUS RHYTHM ^ NORMAL ECG ^ ^ Confirmed by MD JOE, KIMBERLYIIEbony ([id number]) on 11/01/2024 9:21:09 AM Priti Geiger [employer] ECG ORDERABLES Final Result Performing Organization Address [facility] Co de Phone Number MUSE * (ABNORMAL) Renal Function Panel w/EGFR (10/30/2024 5:41 AM EDT) Sodium 140 133 - 146 mmol/L 10/30/2024 6:18 AM EDT [facility] Potassium 3.8 3.5 - 5.3 mmol/L 10/30/2024 6:18 AM EDT [facility] Chloride 111(H) 98 - 110 mmol/L 10/30/2024 6:18 AM EDT [facility] CO2 17(L) 21 - 33 mmol/L 10/30/2024 6:18 AM EDT [facility] Anion Gap 12 3 - 16 mmol/L 10/30/2024 6:18 AM EDT [facility] BUN 62(H) 7 - 25 mg/dL 10/30/2024 6:18 AM EDT [facility] Creatinine 1.96(H) 0.60 - 1.30 mg/dL 10/30/2024 6:18 AM EDT [facility] Glucose 116(H) 70 - 100 mg/dL 10/30/2024 6:18 AM EDT [facility] Calcium 9.0 8.6 - 10.3 mg/dL 10/30/2024 6:18 AM EDT [facility] Phosphorus 4.6 2.1 - 4.7 mg/dL 10/30/2024 6:18 AM EDT [facility] Albumin 3.2(L) 3.5 - 5.7 g/dL 10/30/2024 6:18 AM EDT [facility] Osmolality, Calculated 309(H) 278 - 305 mOsm/kg 10/30/2024 6:18 AM EDT [facility] EGFR 43 10/30/2024 6:18 AM EDT [facility] Comment:As of 2021, the [...] 10/30/2024 5:47 AM EDT us Beata Horner [employer] LAB BLOOD ORDERABLES Denisse valle Result [facility] [address] [place] [address], [facility] * Magnesium (10/30/2024 5:41 AM EDT) Magnesium 2.2 1.5 - 2.5 mg/dL 10/30/2024 6:18 AM EDT [facility] Plasma 10/30/2024 5:41 AM EDT 10/30/2024 5:47 AM EDT Beata Horner [facility] BLOOD ORDERABLES Denisse l Result Performing Organization Address [facility] Co de Phone Number [facility] [address] [facility] * (ABNORMAL) Hepatic Function Panel (10/30/2024 5:41 AM EDT) Total Bilirubin 3.6(H) 0.0 - 1.5 mg/dL 10/30/2024 6:18 AM EDT [facility] Bilirubin, Direct 1.95(H) 0.00 - 0.40 mg/dL 10/30/2024 6:18 AM EDT [facility] AST 33 13 - 39 U/L 10/30/2024 6:18 AM EDT [facility] ALT 71(H) 7 - 52 U/L 10/30/2024 6:18 AM EDT [facility] Alkaline Phosphatase 80 36 - 125 U/L 10/30/2024 6:18 AM EDT [facility] Total Protein 4.8(L) 6.4 - 8.9 g/dL 10/30/2024 6:18 AM EDT [facility] Albumin 3.2(L) 3.5 - 5.7 g/dL 10/30/2024 6:18 AM EDT [facility] Bilirubin, Indirect 1.65(H) 0.00 - 1.10 mg/dL 10/30/2024 6:18 AM EDT [facility] Plasma 10/30/2024 5:41 AM EDT 10/30/2024 5:47 AM EDT Beata Horner [facility] BLOOD ORDERABLES Denisse l Result Performing Organization Address City/[facility]/ZIP Co de Phone Number [facility] [address] [facility] * (ABNORMAL) CBC (10/30/2024 5:41 AM EDT) WBC 8.1 3.8 - 10.8 10E3/uL 10/30/2024 8:06 AM EDT [facility] RBC 3.29(L) 4.20 - 5.80 10E6/uL 10/30/2024 8:06 AM EDT [facility] Hemoglobin 10.1(L) 13.2 - 17.1 g/dL 10/30/2024 8:06 AM EDT [facility] Hematocrit 28.8(L) 38.5 - 50.0 % 10/30/2024 8:06 AM EDT [facility] MCV 87.6 80.0 - 100.0 fL 10/30/2024 8:06 AM EDT [facility] MCH 30.6 27.0 - 33.0 pg 10/30/2024 8:06 AM EDT [facility] MCHC 34.9 32.0 - 36.0 g/dL 10/30/2024 8:06 AM EDT [facility] RDW 18.1(H) 11.0 - 15.0 % 10/30/2024 8:06 AM EDT [facility] Platelets 44(L) 140 - 400 10E3/uL 10/30/2024 8:06 AM EDT [facility] Comment: CNV Specimen checked for clots. None detected. MPV 8.3 7.5 - 11.5 fL 10/30/2024 8:06 AM EDT [facility] Whole Blood 10/30/2024 5:41 AM EDT 10/30/2024 5:50 AM EDT Beata Horner [employer] ATTORNEY LAB BLOOD ORDERABLES Denisse l Result [facility] [address] [place] [address], [facility] * (ABNORMAL) POC Glucose Monitoring Device (10/29/2024 10:18 PM EDT) POC Glucose Monitoring Device 140(H) 70 - 100 mg/dL 10/29/2024 10:18 PM EDT [facility] Blood 10/29/2024 10:1 8 PM EDT 10/29/2024 10:18 PM EDT Semaj Mcnair III, MD POINT OF CARE TEST ORDERABLES Final Result Performing Organization Address [facility] Co de Phone Number [facility] [address] [place] [address] * (ABNORMAL) POC Glucose Monitoring Device (10/29/2024 6:42 PM EDT) POC Glucose Monitoring Device 152(H) 70 - 100 mg/dL 10/29/2024 6:43 PM EDT [facility] Blood 10/29/2024 6:42 PM EDT 10/29/2024 6:43 PM EDT Semaj Mcnair III, MD POINT OF CARE TEST ORDERABLES Final Result Performing Organization Address [facility] de Phone Number [facility] [address] [facility]. [address] * (ABNORMAL) POC Glucose Monitoring Device (10/29/2024 11:35 AM EDT) POC Glucose Monitoring Device 130(H) 70 - 100 mg/dL 10/29/2024 11:36 AM EDT [facility] Blood 10/29/2024 11:3 5 AM EDT 10/29/2024 11:36 AM EDT Semaj Mcnair III, MD POINT OF CARE TEST ORDERABLES Final Result Performing Organization Address [facility] Co de Phone Number [facility] [address] [facility]. [address] * ECG 12 lead (MUSE) (10/29/2024 9:34 AM EDT) 10/29/2024 9:34 AM EDT Narrative MUSE - 10/29/2024 10:34 PM EDT Ventricular Rate: 97 BPM Atrial Rate: 97 BPM P-R Interval: 186 ms QRS Duration: 104 ms QT: 382 ms QTc: 485 ms P Bono: 54 degrees R Bono: -21 degrees T Bono: 1 degrees Diagnosis Line: NORMAL SINUS RHYTHM ^ NORMAL ECG ^ Confirmed by JORGE MACIAS ([id number]) on 10/29/2024 10:34:50 PM Afshan Bear MD ECG ORDERABLES Final Result Performing Organization Address [facility] Co de Phone Number MUSE * Tacrolimus level (10/29/2024 8:08 AM EDT) Pathologist [facility] Tacrolimus (LC-MS) 10.4 3.0 - 15.0 ng/mL 10/29/2024 2:07 PM EDT [facility] Comment:Performed via liquid chromatography tandem mass spectrometry. Detection limit: 1 ng/mL. Individual target concentrations may vary due to target organ and time after transplant. This test has been developed and its performance characteristics determined by [facility] which is certified under the Clinical Laboratory Improvement Amendment of 1988 (CLIA-88) to perform high complexity testing. The test has not been cleared or approved by the Food and Drug Administration (FDA). The FDA has determined that such clearance is not necessary. The test should be used for clinical purposes and is not regarded as investigational. Whole Blood 10/29/2024 8:08 AM EDT 10/29/2024 8:21 AM EDT Priti Geiger [facility] BLOOD ORDERABLES Final Re sult Performing Organization Address [facility] Co de Phone Number [facility] [address] [place] [address] * Prepare RBC, leukoreduced, 1 Units (10/29/2024 6:16 AM EDT) Product Code L6598W56 HCLL Unit Number [id number] HCLL Dispense Status Presumed Transfused_PT HCLL Blood Expiration Date [id number] HCLL Coding System [id number] HCLL Blood Bank Product Shay Plata MD BLOOD BANK PRODUCT O RDERABLES Final Result Performing Organization Address City/[facility]/ZIP Co de Phone Number HCLL * Prepare RBC, leukoreduced, 1 Units (10/29/2024 6:15 AM EDT) Product Code L8259D05 HCLL Unit Number [id number] HCLL Dispense Status Presumed Transfused_PT HCLL Blood Expiration Date [id number] HCLL Coding System [id number] HCLL Blood Bank Product Carlos Marks MD BLOOD BANK PRODUCT ORDERABL ES Final Result Performing Organization Address [facility] Co de Phone Number HCLL * Prepare RBC, leukoreduced, 1 Units (10/29/2024 6:15 AM EDT) Product Code U0199D90 HCLL Unit Number [id number] HCLL Dispense Status Presumed Transfused_PT HCLL Blood Expiration Date [id number] HCLL Coding System [id number] HCLL Blood Bank Product John Moreno MD BLOOD BANK PRODUCT ORDERABLE S Final Result Performing Organization Address [facility] de Phone Number HCLL * (ABNORMAL) Renal Function Panel w/EGFR (10/29/2024 5:07 AM EDT) Sodium 144 133 - 146 mmol/L 10/29/2024 5:49 AM EDT [facility] Potassium 3.8 3.5 - 5.3 mmol/L 10/29/2024 5:49 AM EDT [facility] Chloride 113(H) 98 - 110 mmol/L 10/29/2024 5:49 AM EDT [facility] CO2 17(L) 21 - 33 mmol/L 10/29/2024 5:49 AM EDT [facility] Anion Gap 14 3 - 16 mmol/L 10/29/2024 5:49 AM EDT [facility] BUN 57(H) 7 - 25 mg/dL 10/29/2024 5:49 AM EDT [facility] Creatinine 1.93(H) 0.60 - 1.30 mg/dL 10/29/2024 5:49 AM EDT [facility] Glucose 110(H) 70 - 100 mg/dL 10/29/2024 5:49 AM EDT [facility] Calcium 9.3 8.6 - 10.3 mg/dL 10/29/2024 5:49 AM EDT [facility] Phosphorus 4.8(H) 2.1 - 4.7 mg/dL 10/29/2024 5:49 AM EDT [facility] Albumin 3.5 3.5 - 5.7 g/dL 10/29/2024 5:49 AM EDT [facility] Osmolality, Calculated 314(H) 278 - 305 mOsm/kg 10/29/2024 5:49 AM EDT [facility] EGFR 44 10/29/2024 5:49 AM EDT [facility] Comment:As of 2021, the [...] 10/29/2024 5:13 AM EDT us Beata Horner [facility] BLOOD ORDERABLES Denisse valle Result [facility] [address] [place] [address], [facility] * Magnesium (10/29/2024 5:07 AM EDT) Magnesium 2.1 1.5 - 2.5 mg/dL 10/29/2024 5:49 AM EDT [facility] Plasma 10/29/2024 5:07 AM EDT 10/29/2024 5:13 AM EDT Beata Horner [facility] BLOOD ORDERABLES Denisse l Result [facility] [address] * (ABNORMAL) Hepatic Function Panel (10/29/2024 5:07 AM EDT) Total Bilirubin 4.2(H) 0.0 - 1.5 mg/dL 10/29/2024 5:49 AM EDT [facility] Bilirubin, Direct 2.85(H) 0.00 - 0.40 mg/dL 10/29/2024 5:49 AM EDT [facility] AST 31 13 - 39 U/L 10/29/2024 5:49 AM EDT [facility] ALT 88(H) 7 - 52 U/L 10/29/2024 5:49 AM EDT [facility] Alkaline Phosphatase 51 36 - 125 U/L 10/29/2024 5:49 AM EDT [facility] Total Protein 5.2(L) 6.4 - 8.9 g/dL 10/29/2024 5:49 AM EDT [facility] Albumin 3.5 3.5 - 5.7 g/dL 10/29/2024 5:49 AM EDT [facility] Bilirubin, Indirect 1.35(H) 0.00 - 1.10 mg/dL 10/29/2024 5:49 AM EDT [facility] Plasma 10/29/2024 5:07 AM EDT 10/29/2024 5:13 AM EDT Beata Horner [facility] BLOOD ORDERABLES Denisse l Result [facility] [address] * (ABNORMAL) CBC (10/29/2024 5:07 AM EDT) Pathologist [facility] WBC 7.8 3.8 - 10.8 10E3/uL 10/29/2024 5:38 AM EDT [facility] RBC 3.05(L) 4.20 - 5.80 10E6/uL 10/29/2024 5:38 AM EDT [facility] Hemoglobin 9.0(L) 13.2 - 17.1 g/dL 10/29/2024 5:38 AM EDT [facility] Hematocrit 26.7(L) 38.5 - 50.0 % 10/29/2024 5:38 AM EDT [facility] MCV 87.4 80.0 - 100.0 fL 10/29/2024 5:38 AM EDT [facility] MCH 29.7 27.0 - 33.0 pg 10/29/2024 5:38 AM EDT [facility] MCHC 33.9 32.0 - 36.0 g/dL 10/29/2024 5:38 AM EDT [facility] RDW 18.3(H) 11.0 - 15.0 % 10/29/2024 5:38 AM EDT [facility] Platelets 41(L) 140 - 400 10E3/uL 10/29/2024 5:38 AM EDT [facility] Comment: CNV Specimen checked for clots. None detected. MPV 7.5 7.5 - 11.5 fL 10/29/2024 5:38 AM EDT [facility] Whole Blood 10/29/2024 5:07 AM EDT 10/29/2024 5:13 AM EDT us Beata Horner [facility] BLOOD ORDERABLES Denisse l Result [facility] [address] * (ABNORMAL) TEG-Bypass/ECMO/Liver HN (Factor function, Platelet/Fibrin Clot Strength w/Clot Breakdown, Heparinase In All Channels) (10/29/2024 5:07 AM EDT) Pathologist [facility] Citrated Kaolin Reaction Time (TEGECMOLIVER) 8.9 4.6 - 9.1 minutes 10/29/2024 7:04 AM EDT [facility] Citrated Kaolin W/Heparinase Reaction Time (TEGECMOLIVER) 7.4 4.3 - 8.3 minutes 10/29/2024 7:04 AM EDT [facility] Citrated Kaolin Maximum Amplitude (TEGECMOLIVER) 52.9 52.0 - 69.0 mm 10/29/2024 7:04 AM EDT [facility] Citrated Functional Fibrinogen W/Heparinase Maximum Amplitude(TEGEC MOLIVER) 20.7 15.0 - 34.0 mm 10/29/2024 7:04 AM EDT [facility] Citrated Rapid Teg W/Heparinase Maximum Amplitude (TEGECMOLIVER) 49.7(L) 53.0 - 69.0 mm 10/29/2024 7:04 AM EDT [facility] Citrated Kaolin w/Heparinase Percent Lysis (TEGECMOLIVER) 0.0 0.0 - 3.2 % 10/29/2024 7:04 AM EDT [facility] Whole Blood (Citrate) 10/29/2024 5:07 AM EDT 10/29/2024 5:10 AM EDT us Kemar Sahni MD LAB BLOOD ORDERABLES Final Result [facility] [address] * (ABNORMAL) TEG-Bypass/ECMO/Liver HN (Factor function, Platelet/Fibrin Clot Strength w/Clot Breakdown, Heparinase In All Channels) (10/28/2024 11:55 PM EDT) [facility] Citrated Kaolin Reaction Time (TEGECMOLIVER) 8.6 4.6 - 9.1 minutes 10/29/2024 2:01 AM EDT [facility] Citrated Kaolin W/Heparinase Reaction Time (TEGECMOLIVER) 8.7(H) 4.3 - 8.3 minutes 10/29/2024 2:01 AM EDT [facility] Citrated Kaolin Maximum Amplitude (TEGECMOLIVER) 47.9(L) 52.0 - 69.0 mm 10/29/2024 2:01 AM EDT [facility] Citrated Functional Fibrinogen W/Heparinase Maximum Amplitude(TEGEC MOLIVER) 22.0 15.0 - 34.0 mm 10/29/2024 2:01 AM EDT [facility] Citrated Rapid Teg W/Heparinase Maximum Amplitude (TEGECMOLIVER) 45.9(L) 53.0 - 69.0 mm 10/29/2024 2:01 AM EDT [facility] Citrated Kaolin w/Heparinase Percent Lysis (TEGECMOLIVER) 0.0 0.0 - 3.2 % 10/29/2024 2:01 AM EDT [facility] Whole Blood (Citrate) 10/28/2024 11:55 PM EDT 10/28/2024 11:58 PM EDT Kemar Sahni MD LAB BLOOD ORDERABLES Final Result Performing Organization Address City/State/[facility] Co de Phone Number [facility] [address] * (ABNORMAL) CBC, STAT (10/28/2024 8:04 PM EDT) WBC 3.9 3.8 - 10.8 10E3/uL 10/28/2024 8:36 PM EDT [facility] RBC 2.66(L) 4.20 - 5.80 10E6/uL 10/28/2024 8:36 PM EDT [facility] Hemoglobin 8.0(L) 13.2 - 17.1 g/dL 10/28/2024 8:36 PM EDT [facility] Hematocrit 23.0(L) 38.5 - 50.0 % 10/28/2024 8:36 PM EDT [facility] MCV 86.4 80.0 - 100.0 fL 10/28/2024 8:36 PM EDT [facility] MCH 29.9 27.0 - 33.0 pg 10/28/2024 8:36 PM EDT [facility] MCHC 34.6 32.0 - 36.0 g/dL 10/28/2024 8:36 PM EDT [facility] RDW 18.6(H) 11.0 - 15.0 % 10/28/2024 8:36 PM EDT [facility] Platelets 29(L) 140 - 400 10E3/uL 10/28/2024 8:36 PM EDT [facility] Comment: CNV Specimen checked for clots. None detected. MPV 7.8 7.5 - 11.5 fL 10/28/2024 8:36 PM EDT [facility] Whole Blood 10/28/2024 8:04 PM EDT 10/28/2024 8:14 PM EDT Carlos Marks MD LAB BLOOD ORDERABLES Final Result [facility] [address] [facility] * (ABNORMAL) POC Glucose Monitoring Device (10/28/2024 8:03 PM EDT) POC Glucose Monitoring Device 122(H) 70 - 100 mg/dL 10/28/2024 8:04 PM EDT [facility] Blood 10/28/2024 8:03 PM EDT 10/28/2024 8:04 PM EDT Semaj Mcnair III, MD POINT OF CARE TEST ORDERABLES Final Result Performing Organization Address City/[facility]/ZIP Co de Phone Number [facility] [address] * (ABNORMAL) TEG-Bypass/ECMO/Liver HN (Factor function, Platelet/Fibrin Clot Strength w/Clot Breakdown, Heparinase In All Channels) (10/28/2024 6:39 PM EDT) Citrated Kaolin Reaction Time (TEGECMOLIVER) 9.0 4.6 - 9.1 minutes 10/28/2024 7:50 PM EDT [facility] Citrated Kaolin W/Heparinase Reaction Time (TEGECMOLIVER) 8.3 4.3 - 8.3 minutes 10/28/2024 7:50 PM EDT [facility] Citrated Kaolin Maximum Amplitude (TEGECMOLIVER) 47.6(L) 52.0 - 69.0 mm 10/28/2024 7:50 PM EDT [facility] Citrated Functional Fibrinogen W/Heparinase Maximum Amplitude(TEGEC MOLIVER) 20.4 15.0 - 34.0 mm 10/28/2024 7:50 PM EDT [facility] Citrated Rapid Teg W/Heparinase Maximum Amplitude (TEGECMOLIVER) 44.0(L) 53.0 - 69.0 mm 10/28/2024 7:50 PM EDT [facility] Citrated Kaolin w/Heparinase Percent Lysis (TEGECMOLIVER) 0.0 0.0 - 3.2 % 10/28/2024 7:50 PM EDT [facility] Whole Blood (Citrate) 10/28/2024 6:39 PM EDT 10/28/2024 6:42 PM EDT us Kemar Sahni MD LAB BLOOD ORDERABLES Final Result Performing Organization Address [facility] Co de Phone Number [facility] [address] * (ABNORMAL) POC Glucose Monitoring Device (10/28/2024 5:31 PM EDT) [facility] POC Glucose Monitoring Device 130(H) 70 - 100 mg/dL 10/28/2024 5:31 PM EDT [facility] Blood 10/28/2024 5:31 PM EDT 10/28/2024 5:31 PM EDT us Semaj Mcnair III, MD POINT OF CARE TEST ORDERABLES Final Result Performing Organization Address City/[facility]/ZIP Co de Phone Number [facility] [address] * Transfuse RBC Transfusion Rate: Per dept routine (10/28/2024 5:23 PM EDT) us Shay Plata MD NURSING TREATMENT OR DERABLES - BLOOD ADMIN Final Result Performing Organization Address City/[facility]/ZIP Co de Phone Number EXTERNAL * Transfuse RBC Transfusion Rate: Per dept routine, 1 Units (10/28/2024 5:23 PM EDT) us Shay Plata MD NURSING TREATMENT OR DERABLES - BLOOD ADMIN Final Result EXTERNAL * US Abdomen Limited (10/28/2024 4:23 [...] EXAM: US ABDOMEN LIMITED EXAM: US DUPLEX [id number] COMPLETE INDICATION: Post-op liver transplant DATE: 10/28/2024 [...] retrohepatic inferior vena cava is patent. The [place] right kidney is partially visualized. A prominent [...] EXAM: US ABDOMEN LIMITED EXAM: US DUPLEX [id number] COMPLETE INDICATION: Post-op liver transplant DATE: 10/28/2024 [...] retrohepatic inferior vena cava is patent. The [place] right kidney is partially visualized. A prominent [...] ORDERABLES Fi nal Result * US Duplex Dlo-Qpi-Nnlopqr Comp (10/28/2024 4:23 PM EDT) Anatomical Region [...] EXAM: US ABDOMEN LIMITED EXAM: US DUPLEX [id number] COMPLETE INDICATION: Post-op liver transplant DATE: 10/28/2024 [...] retrohepatic inferior vena cava is patent. The [place] right kidney is partially visualized. A prominent [...] EXAM: US ABDOMEN LIMITED EXAM: US DUPLEX [id number] COMPLETE INDICATION: Post-op liver transplant DATE: 10/28/2024 [...] retrohepatic inferior vena cava is patent. The [place] right kidney is partially visualized. A prominent [...] PM EDT us Shay Vi Plata MD IM US ORDERABLES Fi nal Result * (ABNORMAL) CBC, STAT (10/28/2024 2:49 PM EDT) WBC 4.0 3.8 - 10.8 10E3/uL 10/28/2024 3:07 PM EDT [facility] RBC 2.44(L) 4.20 - 5.80 10E6/uL 10/28/2024 3:07 PM EDT [facility] Hemoglobin 7.5(L) 13.2 - 17.1 g/dL 10/28/2024 3:07 PM EDT [facility] Hematocrit 21.4(L) 38.5 - 50.0 % 10/28/2024 3:07 PM EDT [facility] MCV 87.6 80.0 - 100.0 fL 10/28/2024 3:07 PM EDT [facility] MCH 30.6 27.0 - 33.0 pg 10/28/2024 3:07 PM EDT [facility] MCHC 34.9 32.0 - 36.0 g/dL 10/28/2024 3:07 PM EDT [facility] RDW 18.4(H) 11.0 - 15.0 % 10/28/2024 3:07 PM EDT [facility] Platelets 30(L) 140 - 400 10E3/uL 10/28/2024 3:07 PM EDT [facility] Comment: CNV Specimen checked for clots. None detected. MPV 7.7 7.5 - 11.5 fL 10/28/2024 3:07 PM EDT [facility] Whole Blood 10/28/2024 2:49 PM EDT 10/28/2024 2:53 PM EDT Carlos Marks MD LAB BLOOD ORDERABLES Final Result Performing Organization Address City/[facility]/ZIP Co de Phone Number [facility] [address] * ECG 12 lead (MUSE) (10/28/2024 1:22 PM EDT) 10/28/2024 1:22 PM EDT Narrative MUSE - 10/29/2024 10:34 PM EDT Ventricular Rate: 104 BPM Atrial Rate: 104 BPM P-R Interval: 172 ms QRS Duration: 90 ms QT: 354 ms QTc: 465 ms P Bono: 58 degrees R Bono: -19 degrees T Bono: 38 degrees Diagnosis Line: SINUS TACHYCARDIA ^ OTHERWISE NORMAL ECG ^ ^ Confirmed by JORGE MACIAS ([id number]) on 10/29/2024 10:34:22 PM Hillary Fernandes PharmD ECG ORDERABLES Final Res ult Performing Organization Address [facility] Co de Phone Number MUSE * (ABNORMAL) POC Glucose Monitoring Device (10/28/2024 12:54 PM EDT) [facility] POC Glucose Monitoring Device 119(H) 70 - 100 mg/dL 10/28/2024 12:55 PM EDT [facility] Blood 10/28/2024 12:5 4 PM EDT 10/28/2024 12:55 PM EDT Semaj Mcnair III, MD POINT OF CARE TEST ORDERABLES Final Result Performing Organization Address [facility] Co de Phone Number [facility] [address] * Transfuse RBC Transfusion Rate: Per dept routine (10/28/2024 12:31 PM EDT) us Carlos Marks MD NURSING TREATMENT ORDERABLE S - BLOOD ADMIN Final Result Performing Organization Address City/[facility] Co de Phone Number EXTERNAL * Transfuse RBC Transfusion Rate: Per dept routine, 1 Units (10/28/2024 12:31 PM EDT) us Carlos Marks MD NURSING TREATMENT ORDERABLE S - BLOOD ADMIN Final Result Performing Organization Address [facility] Co de Phone Number EXTERNAL * Protime-INR, STAT (10/28/2024 11:09 AM EDT) Protime 14.3 12.1 - 15.1 seconds 10/28/2024 11:29 AM EDT [facility] INR 1.1 0.9 - 1.1 10/28/2024 11:29 AM EDT [facility] Comment: RECOMMENDED THERAPEUTIC RANGES USING INR : Stable oral anticoagulant therapy: 2.0 - 3.0 Mechanical prosthetic heart valve: 2.5 - 3.5 Recurrent acute myocardial infarction: 2.5 - 3.5 Plasma 10/28/2024 11:0 9 AM EDT 10/28/2024 11:16 AM EDT us Carlos Marks MD LAB BLOOD ORDERABLES Final Result Performing Organization Address [facility] de Phone Number [facility] [address] * (ABNORMAL) Lactic Acid, STAT (10/28/2024 11:09 AM EDT) Lactate 0.3(L) 0.5 - 2.2 mmol/L 10/28/2024 11:37 AM EDT [facility] Plasma 10/28/2024 11:0 9 AM EDT 10/28/2024 11:15 AM EDT us Carlos Marks MD LAB BLOOD ORDERABLES Final Result Performing Organization Address City/[facility] Co de Phone Number [facility] [address] * Magnesium, STAT (10/28/2024 11:09 AM EDT) Magnesium 2.1 1.5 - 2.5 mg/dL 10/28/2024 11:47 AM EDT [facility] Plasma 10/28/2024 11:0 9 AM EDT 10/28/2024 11:16 AM EDT us Carlos Marks MD LAB BLOOD ORDERABLES Final Result [facility] [address] * (ABNORMAL) Renal Function Panel w/EGFR, STAT (10/28/2024 11:09 AM EDT) Sodium 144 133 - 146 mmol/L 10/28/2024 11:47 AM EDT [facility] Potassium 3.4(L) 3.5 - 5.3 mmol/L 10/28/2024 11:47 AM EDT [facility] Chloride 112(H) 98 - 110 mmol/L 10/28/2024 11:47 AM EDT [facility] CO2 22 21 - 33 mmol/L 10/28/2024 11:47 AM EDT [facility] Anion Gap 10 3 - 16 mmol/L 10/28/2024 11:47 AM EDT [facility] BUN 57(H) 7 - 25 mg/dL 10/28/2024 11:47 AM EDT [facility] Creatinine 2.01(H) 0.60 - 1.30 mg/dL 10/28/2024 11:47 AM EDT [facility] Glucose 108(H) 70 - 100 mg/dL 10/28/2024 11:47 AM EDT [facility] Calcium 8.8 8.6 - 10.3 mg/dL 10/28/2024 11:47 AM EDT [facility] Phosphorus 4.0 2.1 - 4.7 mg/dL 10/28/2024 11:47 AM EDT [facility] Albumin 3.3(L) 3.5 - 5.7 g/dL 10/28/2024 11:47 AM EDT [facility] Osmolality, Calculated 314(H) 278 - 305 mOsm/kg 10/28/2024 11:47 AM EDT [facility] EGFR 42 10/28/2024 11:47 AM EDT [facility] Comment:As of 2021, the [...] Marks MD LAB BLOOD ORDERABLES Final Result [facility] [address] [place] [address], [facility] * (ABNORMAL) TEG-Bypass/ECMO/Liver HN (Factor function, Platelet/Fibrin Clot Strength w/Clot Breakdown, Heparinase In All Channels) (10/28/2024 11:09 AM EDT) Citrated Kaolin Reaction Time (TEGECMOLIVER) 9.2(H) 4.6 - 9.1 minutes 10/28/2024 12:30 PM EDT [facility] Citrated Kaolin W/Heparinase Reaction Time (TEGECMOLIVER) 9.6(H) 4.3 - 8.3 minutes 10/28/2024 12:30 PM EDT [facility] Citrated Kaolin Maximum Amplitude (TEGECMOLIVER) 51.2(L) 52.0 - 69.0 mm 10/28/2024 12:30 PM EDT [facility] Citrated Functional Fibrinogen W/Heparinase Maximum Amplitude(TEGEC MOLIVER) 21.6 15.0 - 34.0 mm 10/28/2024 12:30 PM EDT [facility] Citrated Rapid Teg W/Heparinase Maximum Amplitude (TEGECMOLIVER) 49.3(L) 53.0 - 69.0 mm 10/28/2024 12:30 PM EDT [facility] Citrated Kaolin w/Heparinase Percent Lysis (TEGECMOLIVER) 0.0 0.0 - 3.2 % 10/28/2024 12:30 PM EDT [facility] Whole Blood (Citrate) 10/28/2024 11:09 AM EDT 10/28/2024 11:14 AM EDT Kemar Sahni MD LAB BLOOD ORDERABLES Final Result Performing Organization Address City/State/[facility] Co de Phone Number [facility] [address] * (ABNORMAL) CBC (10/28/2024 10:21 AM EDT) WBC 4.1 3.8 - 10.8 10E3/uL 10/28/2024 10:41 AM EDT [facility] RBC 2.30(L) 4.20 - 5.80 10E6/uL 10/28/2024 10:41 AM EDT [facility] Hemoglobin 7.1(L) 13.2 - 17.1 g/dL 10/28/2024 10:41 AM EDT [facility] Hematocrit 20.4(L) 38.5 - 50.0 % 10/28/2024 10:41 AM EDT [facility] MCV 88.5 80.0 - 100.0 fL 10/28/2024 10:41 AM EDT [facility] MCH 30.7 27.0 - 33.0 pg 10/28/2024 10:41 AM EDT [facility] MCHC 34.7 32.0 - 36.0 g/dL 10/28/2024 10:41 AM EDT [facility] RDW 18.7(H) 11.0 - 15.0 % 10/28/2024 10:41 AM EDT [facility] Platelets 37(L) 140 - 400 10E3/uL 10/28/2024 10:41 AM EDT [facility] Comment: CNV Specimen checked for clots. None detected. MPV 7.6 7.5 - 11.5 fL 10/28/2024 10:41 AM EDT [facility] Whole Blood 10/28/2024 10:2 1 AM EDT 10/28/2024 10:29 AM EDT Carlos Marks MD LAB BLOOD ORDERABLES Final Result Performing Organization Address City/[facility]/ZIP Co de Phone Number [facility] [address] [facility]. [address] * POC Glucose Monitoring Device (10/28/2024 9:07 AM EDT) POC Glucose Monitoring Device 97 70 - 100 mg/dL 10/28/2024 9:08 AM EDT [facility] Blood 10/28/2024 9:07 AM EDT 10/28/2024 9:08 AM EDT Semaj Mcnair III, MD POINT OF CARE TEST ORDERABLES Final Result Performing Organization Address [facility] Co de Phone Number [facility] [address] [facility]. [address] * (ABNORMAL) Tacrolimus level (10/28/2024 8:20 AM EDT) Tacrolimus (LC-MS) <1.0(L) 3.0 - 15.0 ng/mL 10/28/2024 2:02 PM EDT [facility] Comment:Performed via liquid chromatography tandem mass spectrometry. Detection limit: 1 ng/mL. Individual target concentrations may vary due to target organ and time after transplant. This test has been developed and its performance characteristics determined by [facility] which is certified under [...] EDT 10/28/2024 8:29 AM EDT Priti Geiger [facility] BLOOD ORDERABLES Final Re sult Performing Organization Address [facility]/ZIP Co de Phone Number [address] * (ABNORMAL) POC Glucose Monitoring Device (10/28/2024 8:10 AM EDT) POC Glucose Monitoring Device 102(H) 70 - 100 mg/dL 10/28/2024 8:11 AM EDT [facility] Blood 10/28/2024 8:10 AM EDT 10/28/2024 8:11 AM EDT Semaj Mcnair III, MD POINT OF CARE TEST ORDERABLES Final Result Performing Organization Address [facility] Co de Phone Number [address] * POC Glucose Monitoring Device (10/28/2024 6:17 AM EDT) POC Glucose Monitoring Device 100 70 - 100 mg/dL 10/28/2024 6:18 AM EDT [facility] Blood 10/28/2024 6:17 AM EDT 10/28/2024 6:18 AM EDT Semaj Mcnair III, MD POINT OF CARE TEST ORDERABLES Final Result Performing Organization Address [facility] Co de Phone Number [address] * Prepare Platelets, leukoreduced (10/28/2024 6:15 AM EDT) Product Code [id number] [facility] Unit Number [id number] [facility] Dispense Status Presumed Transfused_PT [facility] Blood Expiration Date [facility] Coding System [id number] [facility] Product Code [id number] [facility] Unit Number [id number] [facility] Dispense Status Presumed Transfused_PT [facility] Blood Expiration Date [id number] [facility] Coding System [id number] [facility] us Attending Provider Unknown BLOOD BANK PRODUCT OR DERABLES Final Result Performing Organization Address [facility] Co de Phone Number [facility] * Prepare Fresh Frozen Plasma (10/28/2024 6:15 AM EDT) Product Code [id number] [facility] Unit Number [id number] HCLL Dispense Status Released from Crossmatch_RE HCLL Blood Expiration Date HCLL Coding System [id number] HCLL Product Code U2547E22 HCLL Unit Number [id number] HCLL Dispense Status Presumed Transfused_PT HCLL Blood Expiration Date HCLL Coding System [id number] HCLL Product Code Z0059B85 HCLL Unit Number [id number] HCLL Dispense Status Released from Crossmatch_RE HCLL Blood Expiration Date HCLL Coding System BSXT582 HCLL Product Code S9440V86 HCLL Unit Number [id number] HCLL Dispense Status Presumed Transfused_PT HCLL Blood Expiration Date HCLL Coding System [id number] HCLL Product Code L8099L05 HCLL Unit Number [id number] HCLL Dispense Status Released from Crossmatch_RE HCLL Blood Expiration Date [id number] HCLL Coding System [id number] HCLL us Attending Provider Unknown BLOOD BANK PRODUCT OR DERABLES Final Result Performing Organization Address City/[facility]/ZIP Co de Phone Number HCLL * Prepare RBC, leukoreduced (10/28/2024 6:15 AM EDT) Product Code L1090N57 HCLL Unit Number [id number] HCLL Dispense Status Released from Crossmatch_RE HCLL Blood Expiration Date [id number] HCLL Coding System [id number] HCLL Product Code I8928W16 HCLL Unit Number [id number] HCLL Dispense Status Presumed Transfused_PT HCLL Blood Expiration Date [id number] HCLL Coding System [id number] HCLL Product Code X2397V02 HCLL Unit Number [id number] HCLL Dispense Status Released from Crossmatch_RE HCLL Blood Expiration Date [id number] HCLL Coding System XIMS915 HCLL Product Code P2321Z87 HCLL Unit Number [id number] HCLL Dispense Status Presumed Transfused_PT HCLL Blood Expiration Date [id number] HCLL Coding System GQTQ889 HCLL Product Code J6330S87 HCLL Unit Number [id number] HCLL Dispense Status Released from Crossmatch_RE HCLL Blood Expiration Date [id number] HCLL Coding System [id number] HCLL us Attending Provider Unknown BLOOD BANK PRODUCT OR DERABLES Final Result Performing Organization Address City/[facility]/ZIP Co de Phone Number HCLL * Prepare Platelets, leukoreduced, 1 Units (10/28/2024 6:15 AM EDT) Product Code Y6460I59 HCLL Unit Number [id number] HCLL Dispense Status Presumed Transfused_PT HCLL Blood Expiration Date 817165833213 HCLL Coding System [id number] HCLL Blood Bank Product John Pina MD BLOOD BANK PRODUCT ORDERABLES F inal Result HCLL * Prepare Cryoprecipitate, 1 Units (10/28/2024 6:15 AM EDT) Product Code T2638D67 HCLL Unit Number [id number] HCLL Dispense Status Presumed Transfused_PT HCLL Blood Expiration Date HCLL Coding System RRPQ608 HCLL Product Code Z4036S28 HCLL Unit Number [id number] HCLL Dispense Status Presumed Transfused_PT HCLL Blood Expiration Date HCLL Coding System ISHX630 HCLL Blood Bank Product John Pina MD BLOOD BANK PRODUCT ORDERABLES F inal Result Performing Organization Address [facility]/ZIP Co de Phone Number HCLL * Prepare Fresh Frozen Plasma, 1 Units (10/28/2024 6:15 AM EDT) Product Code F2601E71 HCLL Unit Number [id number] HCLL Dispense Status Presumed Transfused_PT HCLL Blood Expiration Date HCLL Coding System UYLB979 HCLL Blood Bank Product John Pina MD BLOOD BANK PRODUCT ORDERABLES F inal Result Performing Organization Address [facility] Co de Phone Number HCLL * Prepare Cryoprecipitate, 1 Units (10/28/2024 6:15 AM EDT) Product Code X5453U52 HCLL Unit Number [id number] HCLL Dispense Status Presumed Transfused_PT HCLL Blood Expiration Date HCLL Coding System NTRI508 HCLL Product Code M6316C69 HCLL Unit Number [id number] HCLL Dispense Status Presumed Transfused_PT HCLL Blood Expiration Date HCLL Coding System QQQP122 HCLL Product Code J4797J85 HCLL Unit Number [id number] HCLL Dispense Status Presumed Transfused_PT HCLL Blood Expiration Date HCLL Coding System XCQB966 HCLL Product Code H7299U78 HCLL Unit Number [id number] HCLL Dispense Status Presumed Transfused_PT HCLL Blood Expiration Date HCLL Coding System [id number] [facility] Blood Bank Product John Pina MD BLOOD BANK PRODUCT ORDERABLES F inal Result HCLL * (ABNORMAL) POC Glucose Monitoring Device (10/28/2024 4:55 AM EDT) POC Glucose Monitoring Device 104(H) 70 - 100 mg/dL 10/28/2024 4:57 AM EDT [facility] Blood 10/28/2024 4:55 AM EDT 10/28/2024 4:57 AM EDT Semaj Mcnair III, MD POINT OF CARE TEST ORDERABLES Final Result Performing Organization Address City/[facility]/ZIP Co de Phone Number [facility] [address] * TEG-Bypass/ECMO/Liver HN (Factor function, Platelet/Fibrin Clot Strength w/Clot Breakdown, Heparinase In All Channels) (10/28/2024 4:13 AM EDT) Citrated Kaolin Reaction Time (TEGECMOLIVER) 7.2 4.6 - 9.1 minutes 10/28/2024 5:38 AM EDT [facility] Citrated Kaolin W/Heparinase Reaction Time (TEGECMOLIVER) 7.8 4.3 - 8.3 minutes 10/28/2024 5:38 AM EDT [facility] Citrated Kaolin Maximum Amplitude (TEGECMOLIVER) 53.0 52.0 - 69.0 mm 10/28/2024 5:38 AM EDT [facility] Citrated Functional Fibrinogen W/Heparinase Maximum Amplitude(TEGEC MOLIVER) 21.4 15.0 - 34.0 mm 10/28/2024 5:38 AM EDT [facility] Citrated Rapid Teg W/Heparinase Maximum Amplitude (TEGECMOLIVER) 54.7 53.0 - 69.0 mm 10/28/2024 5:38 AM EDT [facility] Citrated Kaolin w/Heparinase Percent Lysis (TEGECMOLIVER) 0.0 0.0 - 3.2 % 10/28/2024 5:38 AM EDT [facility] Whole Blood (Citrate) 10/28/2024 4:13 AM EDT 10/28/2024 4:28 AM EDT Kemar Sahni MD LAB BLOOD ORDERABLES Final Result Performing Organization Address [facility] Co de Phone Number [facility] [address] [place] [address]. [address] * Protime-INR (10/28/2024 4:13 AM EDT) Protime 14.6 12.1 - 15.1 seconds 10/28/2024 4:53 AM EDT [facility] INR 1.1 0.9 - 1.1 10/28/2024 4:53 AM EDT [facility] Comment: RECOMMENDED THERAPEUTIC RANGES USING INR : Stable oral anticoagulant therapy: 2.0 - 3.0 Mechanical prosthetic heart valve: 2.5 - 3.5 Recurrent acute myocardial infarction: 2.5 - 3.5 Plasma 10/28/2024 4:13 AM EDT 10/28/2024 4:41 AM EDT Kemar Sahni MD LAB BLOOD ORDERABLES Final Result Performing Organization Address City/[facility] Co de Phone Number [facility] [address] [place] [address] * Magnesium (10/28/2024 4:13 AM EDT) Magnesium 2.2 1.5 - 2.5 mg/dL 10/28/2024 5:15 AM EDT [facility] Plasma 10/28/2024 4:13 AM EDT 10/28/2024 4:41 AM EDT Kemar Sahni MD LAB BLOOD ORDERABLES Final Result [facility] [address] [facility] * (ABNORMAL) Hepatic Function Panel (10/28/2024 4:13 AM EDT) Total Bilirubin 2.3(H) 0.0 - 1.5 mg/dL 10/28/2024 5:15 AM EDT [facility] Bilirubin, Direct 1.67(H) 0.00 - 0.40 mg/dL 10/28/2024 5:15 AM EDT [facility] AST 44(H) 13 - 39 U/L 10/28/2024 5:15 AM EDT [facility] ALT 101(H) 7 - 52 U/L 10/28/2024 5:15 AM EDT [facility] Alkaline Phosphatase 26(L) 36 - 125 U/L 10/28/2024 5:15 AM EDT [facility] Total Protein 4.5(L) 6.4 - 8.9 g/dL 10/28/2024 5:15 AM EDT [facility] Albumin 3.1(L) 3.5 - 5.7 g/dL 10/28/2024 5:15 AM EDT [facility] Bilirubin, Indirect 0.63 0.00 - 1.10 mg/dL 10/28/2024 5:15 AM EDT [facility] Plasma 10/28/2024 4:13 AM EDT 10/28/2024 4:41 AM EDT Kemar Sahni MD LAB BLOOD ORDERABLES Final Result [facility] [address] * (ABNORMAL) Renal Function Panel w/EGFR (10/28/2024 4:13 AM EDT) Sodium 142 133 - 146 mmol/L 10/28/2024 5:15 AM EDT [facility] Potassium 3.5 3.5 - 5.3 mmol/L 10/28/2024 5:15 AM EDT [facility] Chloride 111(H) 98 - 110 mmol/L 10/28/2024 5:15 AM EDT [facility] CO2 22 21 - 33 mmol/L 10/28/2024 5:15 AM EDT [facility] Anion Gap 9 3 - 16 mmol/L 10/28/2024 5:15 AM EDT [facility] BUN 58(H) 7 - 25 mg/dL 10/28/2024 5:15 AM EDT [facility] Creatinine 2.24(H) 0.60 - 1.30 mg/dL 10/28/2024 5:15 AM EDT [facility] Glucose 103(H) 70 - 100 mg/dL 10/28/2024 5:15 AM EDT [facility] Calcium 9.1 8.6 - 10.3 mg/dL 10/28/2024 5:15 AM EDT [facility] Phosphorus 4.8(H) 2.1 - 4.7 mg/dL 10/28/2024 5:15 AM EDT [facility] Albumin 3.1(L) 3.5 - 5.7 g/dL 10/28/2024 5:15 AM EDT [facility] Osmolality, Calculated 310(H) 278 - 305 mOsm/kg 10/28/2024 5:15 AM EDT [facility] EGFR 37 10/28/2024 5:15 AM EDT [facility] Comment:As of 2021, the [...] Sahni MD LAB BLOOD ORDERABLES Final Result [facility] [address] * (ABNORMAL) CBC (10/28/2024 4:13 AM EDT) WBC 4.5 3.8 - 10.8 10E3/uL 10/28/2024 5:09 AM EDT [facility] RBC 2.39(L) 4.20 - 5.80 10E6/uL 10/28/2024 5:09 AM EDT [facility] Hemoglobin 7.3(L) 13.2 - 17.1 g/dL 10/28/2024 5:09 AM EDT [facility] Hematocrit 21.0(L) 38.5 - 50.0 % 10/28/2024 5:09 AM EDT [facility] MCV 87.8 80.0 - 100.0 fL 10/28/2024 5:09 AM EDT [facility] MCH 30.5 27.0 - 33.0 pg 10/28/2024 5:09 AM EDT [facility] MCHC 34.7 32.0 - 36.0 g/dL 10/28/2024 5:09 AM EDT [facility] RDW 18.7(H) 11.0 - 15.0 % 10/28/2024 5:09 AM EDT [facility] Platelets 38(L) 140 - 400 10E3/uL 10/28/2024 5:09 AM EDT [facility] Comment: CNV Specimen checked for clots. None detected. MPV 7.6 7.5 - 11.5 fL 10/28/2024 5:09 AM EDT [facility] Whole Blood 10/28/2024 4:13 AM EDT 10/28/2024 4:41 AM EDT Kemar Sahni MD LAB BLOOD ORDERABLES Final Result [facility] [address] * (ABNORMAL) POC Glucose Monitoring Device (10/28/2024 4:04 AM EDT) POC Glucose Monitoring Device 103(H) 70 - 100 mg/dL 10/28/2024 4:05 AM EDT [facility] Blood 10/28/2024 4:04 AM EDT 10/28/2024 4:05 AM EDT us Semaj Mcnair III, MD POINT OF CARE TEST ORDERABLES Final Result Performing Organization Address City/[facility] Co de Phone Number [facility] [address] [facility]. [address] * (ABNORMAL) POC Glucose Monitoring Device (10/28/2024 3:00 AM EDT) POC Glucose Monitoring Device 106(H) 70 - 100 mg/dL 10/28/2024 3:01 AM EDT [facility] Blood 10/28/2024 3:00 AM EDT 10/28/2024 3:01 AM EDT us Semaj Mcnair III, MD POINT OF CARE TEST ORDERABLES Final Result Performing Organization Address [facility] Co de Phone Number [facility] [address] [place] [address]. [address] * (ABNORMAL) POC Glucose Monitoring Device (10/28/2024 2:32 AM EDT) POC Glucose Monitoring Device 109(H) 70 - 100 mg/dL 10/28/2024 2:33 AM EDT [facility] Blood 10/28/2024 2:32 AM EDT 10/28/2024 2:33 AM EDT us Semaj Mcnair III, MD POINT OF CARE TEST ORDERABLES Final Result Performing Organization Address City/[facility] Co de Phone Number [facility] [address] [facility]. [address] * (ABNORMAL) POC Glucose Monitoring Device (10/28/2024 2:14 AM EDT) POC Glucose Monitoring Device 115(H) 70 - 100 mg/dL 10/28/2024 2:15 AM EDT [facility] Blood 10/28/2024 2:14 AM EDT 10/28/2024 2:15 AM EDT us Semaj Mcnair III, MD POINT OF CARE TEST ORDERABLES Final Result Performing Organization Address [facility] Co de Phone Number [facility] [address] [facility]. [address] * (ABNORMAL) POC Glucose Monitoring Device (10/28/2024 2:03 AM EDT) POC Glucose Monitoring Device 101(H) 70 - 100 mg/dL 10/28/2024 2:04 AM EDT [facility] Blood 10/28/2024 2:03 AM EDT 10/28/2024 2:04 AM EDT us Semaj Mcnair III, MD POINT OF CARE TEST ORDERABLES Final Result Performing Organization Address [facility] de Phone Number [facility] [address] [facility]. [address] * Transfuse RBC Transfusion Rate: Per dept routine (10/28/2024 1:51 AM EDT) us John Moreno MD NURSING TREATMENT ORDERABLES - BLOOD ADMIN Final Result Performing Organization Address [facility] de Phone Number EXTERNAL * Transfuse RBC Transfusion Rate: Per dept routine, 1 Units (10/28/2024 1:51 AM EDT) us John Moreno MD NURSING TREATMENT ORDERABLES - BLOOD ADMIN Final Result Performing Organization Address [facility] de Phone Number EXTERNAL * (ABNORMAL) TEG-Bypass/ECMO/Liver HN (Factor function, Platelet/Fibrin Clot Strength w/Clot Breakdown, Heparinase In All Channels) (10/28/2024 12:05 AM EDT) Citrated Kaolin Reaction Time (TEGECMOLIVER) 7.5 4.6 - 9.1 minutes 10/28/2024 1:22 AM EDT [facility] Citrated Kaolin W/Heparinase Reaction Time (TEGECMOLIVER) 7.7 4.3 - 8.3 minutes 10/28/2024 1:22 AM EDT [facility] Citrated Kaolin Maximum Amplitude (TEGECMOLIVER) 54.4 52.0 - 69.0 mm 10/28/2024 1:22 AM EDT [facility] Citrated Functional Fibrinogen W/Heparinase Maximum Amplitude(TEGEC MOLIVER) 20.4 15.0 - 34.0 mm 10/28/2024 1:22 AM EDT [facility] Citrated Rapid Teg W/Heparinase Maximum Amplitude (TEGECMOLIVER) 51.0(L) 53.0 - 69.0 mm 10/28/2024 1:22 AM EDT [facility] Citrated Kaolin w/Heparinase Percent Lysis (TEGECMOLIVER) 0.0 0.0 - 3.2 % 10/28/2024 1:22 AM EDT [facility] Whole Blood (Citrate) 10/28/2024 12:05 AM EDT 10/28/2024 12:09 AM EDT Kemar Sahni MD LAB BLOOD ORDERABLES Final Result Performing Organization Address City/[facility] Co de Phone Number [facility] [address] [facility]. [address] * Magnesium (10/28/2024 12:05 AM EDT) Magnesium 2.2 1.5 - 2.5 mg/dL 10/28/2024 1:59 AM EDT [facility] Plasma 10/28/2024 12:0 5 AM EDT 10/28/2024 12:11 AM EDT Kemar Sahni MD LAB BLOOD ORDERABLES Final Result [facility] [address] [place], [place] [address] * (ABNORMAL) Renal Function Panel w/EGFR (10/28/2024 12:05 AM EDT) Sodium 144 133 - 146 mmol/L 10/28/2024 1:59 AM EDT [facility] Potassium 3.4(L) 3.5 - 5.3 mmol/L 10/28/2024 1:59 AM EDT [facility] Chloride 112(H) 98 - 110 mmol/L 10/28/2024 1:59 AM EDT [facility] CO2 19(L) 21 - 33 mmol/L 10/28/2024 1:59 AM EDT [facility] Anion Gap 13 3 - 16 mmol/L 10/28/2024 1:59 AM EDT [facility] BUN 59(H) 7 - 25 mg/dL 10/28/2024 1:59 AM EDT [facility] Creatinine 2.42(H) 0.60 - 1.30 mg/dL 10/28/2024 1:59 AM EDT [facility] Glucose 118(H) 70 - 100 mg/dL 10/28/2024 1:59 AM EDT [facility] Calcium 9.0 8.6 - 10.3 mg/dL 10/28/2024 1:59 AM EDT [facility] Phosphorus 5.3(H) 2.1 - 4.7 mg/dL 10/28/2024 1:59 AM EDT [facility] Albumin 3.1(L) 3.5 - 5.7 g/dL 10/28/2024 1:59 AM EDT [facility] Osmolality, Calculated 316(H) 278 - 305 mOsm/kg 10/28/2024 1:59 AM EDT [facility] EGFR 34 10/28/2024 1:59 AM EDT [facility] Comment:As of 2021, the [...] Sahni MD LAB BLOOD ORDERABLES Final Result [facility] [address] [place] [address], [facility] * (ABNORMAL) Differential (10/28/2024 12:05 AM EDT) Neutrophils Relative 88.6(H) 40.0 - 80.0 % 10/28/2024 12:41 AM EDT [facility] Lymphocytes Relative 2.5(L) 15.0 - 45.0 % 10/28/2024 12:41 AM EDT [facility] Monocytes Relative 6.1 0.0 - 12.0 % 10/28/2024 12:41 AM EDT [facility] Eosinophils Relative 2.4 0.0 - 8.0 % 10/28/2024 12:41 AM EDT [facility] Basophils Relative 0.4 0.0 - 1.0 % 10/28/2024 12:41 AM EDT [facility] nRBC 0 0 - 0 /100 WBC 10/28/2024 12:41 AM EDT [facility] Neutrophils Absolute 4,341 1,520 - 8,640 /uL 10/28/2024 12:41 AM EDT [facility] Lymphocytes Absolute 123(L) 570 - 4,860 /uL 10/28/2024 12:41 AM EDT [facility] Monocytes Absolute 299 0 - 1,296 /uL 10/28/2024 12:41 AM EDT [facility] Eosinophils Absolute 118 0 - 864 /uL 10/28/2024 12:41 AM EDT [facility] Basophils Absolute 20 0 - 108 /uL 10/28/2024 12:41 AM EDT [facility] Whole Blood 10/28/2024 12:0 5 AM EDT 10/28/2024 12:11 AM EDT Kemar Sahni MD LAB BLOOD ORDERABLES Final Result [facility] [address] [place] [address], [facility] * (ABNORMAL) CBC (10/28/2024 12:05 AM EDT) WBC 4.9 3.8 - 10.8 10E3/uL 10/28/2024 12:41 AM EDT [facility] RBC 2.18(L) 4.20 - 5.80 10E6/uL 10/28/2024 12:41 AM EDT [facility] Hemoglobin 6.7(L) 13.2 - 17.1 g/dL 10/28/2024 12:41 AM EDT [facility] Hematocrit 19.2(L) 38.5 - 50.0 % 10/28/2024 12:41 AM EDT [facility] MCV 87.8 80.0 - 100.0 fL 10/28/2024 12:41 AM EDT [facility] MCH 30.6 27.0 - 33.0 pg 10/28/2024 12:41 AM EDT [facility] MCHC 34.8 32.0 - 36.0 g/dL 10/28/2024 12:41 AM EDT [facility] RDW 19.6(H) 11.0 - 15.0 % 10/28/2024 12:41 AM EDT [facility] Platelets 45(L) 140 - 400 10E3/uL 10/28/2024 12:41 AM EDT [facility] Comment: CNV Specimen checked for clots. None detected. MPV 7.8 7.5 - 11.5 fL 10/28/2024 12:41 AM EDT [facility] Whole Blood 10/28/2024 12:0 5 AM EDT 10/28/2024 12:11 AM EDT Kemar Sahni MD LAB BLOOD ORDERABLES Final Result Performing Organization Address [facility]/ZIP Co de Phone Number [facility] [address] [facility] * (ABNORMAL) POC Glucose Monitoring Device (10/28/2024 12:03 AM EDT) POC Glucose Monitoring Device 122(H) 70 - 100 mg/dL 10/28/2024 12:04 AM EDT [facility] Blood 10/28/2024 12:0 3 AM EDT 10/28/2024 12:04 AM EDT us Semaj Mcnair III, MD POINT OF CARE TEST ORDERABLES Final Result Performing Organization Address [facility] Co de Phone Number [facility] [address] [facility] * (ABNORMAL) POC Glucose Monitoring Device (10/27/2024 10:03 PM EDT) POC Glucose Monitoring Device 127(H) 70 - 100 mg/dL 10/27/2024 10:03 PM EDT [facility] Blood 10/27/2024 10:0 3 PM EDT 10/27/2024 10:03 PM EDT us Semaj Mcnair III, MD POINT OF CARE TEST ORDERABLES Final Result Performing Organization Address [facility] Co de Phone Number [facility] [address] [facility] * (ABNORMAL) POC Glucose Monitoring Device (10/27/2024 8:06 PM EDT) POC Glucose Monitoring Device 128(H) 70 - 100 mg/dL 10/27/2024 8:45 PM EDT [facility] Blood 10/27/2024 8:06 PM EDT 10/27/2024 8:45 PM EDT us Semaj Mcnair III, MD POINT OF CARE TEST ORDERABLES Final Result Performing Organization Address [facility]/ZIP Co de Phone Number [facility] [address] * (ABNORMAL) POC Glucose Monitoring Device (10/27/2024 6:00 PM EDT) POC Glucose Monitoring Device 128(H) 70 - 100 mg/dL 10/27/2024 6:00 PM EDT [facility] Blood 10/27/2024 6:00 PM EDT 10/27/2024 6:00 PM EDT Semaj Mcnair III, MD POINT OF CARE TEST ORDERABLES Final Result Performing Organization Address [facility] Co de Phone Number [facility] [address] [facility] * Lactic Acid, STAT (10/27/2024 5:41 PM EDT) Lactate 0.5 0.5 - 2.2 mmol/L 10/27/2024 6:28 PM EDT [facility] Plasma 10/27/2024 5:41 PM EDT 10/27/2024 5:49 PM EDT Narrative [facility] - 10/27/2024 6:28 PM EDT Redraw John Moreno MD LAB BLOOD ORDERABLES Final R esult Performing Organization Address [facility] Co de Phone Number [facility] [address] [facility] * (ABNORMAL) Hepatic Function Panel, STAT (10/27/2024 5:13 PM EDT) Total Bilirubin 1.7(H) 0.0 - 1.5 mg/dL 10/27/2024 5:50 PM EDT [facility] Bilirubin, Direct 1.17(H) 0.00 - 0.40 mg/dL 10/27/2024 5:50 PM EDT [facility] AST 60(H) 13 - 39 U/L 10/27/2024 5:50 PM EDT [facility] ALT 134(H) 7 - 52 U/L 10/27/2024 5:50 PM EDT [facility] Alkaline Phosphatase 27(L) 36 - 125 U/L 10/27/2024 5:50 PM EDT [facility] Total Protein 4.1(L) 6.4 - 8.9 g/dL 10/27/2024 5:50 PM EDT [facility] Albumin 2.9(L) 3.5 - 5.7 g/dL 10/27/2024 5:50 PM EDT [facility] Bilirubin, Indirect 0.53 0.00 - 1.10 mg/dL 10/27/2024 5:50 PM EDT [facility] Plasma 10/27/2024 5:13 PM EDT 10/27/2024 5:23 PM EDT Shay Plata MD LAB BLOOD ORDERABLES Final Result Performing Organization Address City/State/[facility] Co de Phone Number [facility] [address] * (ABNORMAL) TEG-Bypass/ECMO/Liver HN (Factor function, Platelet/Fibrin Clot Strength w/Clot Breakdown, Heparinase In All Channels) (10/27/2024 5:13 PM EDT) Pathologist [facility] Citrated Kaolin Reaction Time (TEGECMOLIVER) 8.0 4.6 - 9.1 minutes 10/27/2024 6:56 PM EDT [facility] Citrated Kaolin W/Heparinase Reaction Time (TEGECMOLIVER) 6.8 4.3 - 8.3 minutes 10/27/2024 6:56 PM EDT [facility] Citrated Kaolin Maximum Amplitude (TEGECMOLIVER) 55.4 52.0 - 69.0 mm 10/27/2024 6:56 PM EDT [facility] Citrated Functional Fibrinogen W/Heparinase Maximum Amplitude(TEGEC MOLIVER) 22.9 15.0 - 34.0 mm 10/27/2024 6:56 PM EDT [facility] Citrated Rapid Teg W/Heparinase Maximum Amplitude (TEGECMOLIVER) 50.8(L) 53.0 - 69.0 mm 10/27/2024 6:56 PM EDT [facility] Citrated Kaolin w/Heparinase Percent Lysis (TEGECMOLIVER) 0.1 0.0 - 3.2 % 10/27/2024 6:56 PM EDT [facility] Whole Blood (Citrate) 10/27/2024 5:13 PM EDT 10/27/2024 5:20 PM EDT Kemar Sahni MD LAB BLOOD ORDERABLES Final Result Performing Organization Address [facility] Co de Phone Number [facility] [address] [facility]. [address] * (ABNORMAL) Protime-INR (10/27/2024 5:13 PM EDT) Protime 15.2(H) 12.1 - 15.1 seconds 10/27/2024 5:40 PM EDT [facility] INR 1.1 0.9 - 1.1 10/27/2024 5:40 PM EDT [facility] Comment: RECOMMENDED THERAPEUTIC RANGES USING INR : Stable oral anticoagulant therapy: 2.0 - 3.0 Mechanical prosthetic heart valve: 2.5 - 3.5 Recurrent acute myocardial infarction: 2.5 - 3.5 Plasma 10/27/2024 5:13 PM EDT 10/27/2024 5:23 PM EDT Kemar Sahni MD LAB BLOOD ORDERABLES Final Result [facility] [address] [facility]. [address] * Magnesium (10/27/2024 5:13 PM EDT) Magnesium 2.4 1.5 - 2.5 mg/dL 10/27/2024 5:53 PM EDT [facility] Plasma 10/27/2024 5:13 PM EDT 10/27/2024 5:23 PM EDT Kemar Sahni MD LAB BLOOD ORDERABLES Final Result [facility] [address] [place] [address], [facility] * (ABNORMAL) Hepatic Function Panel (10/27/2024 5:13 PM EDT) Total Bilirubin 1.7(H) 0.0 - 1.5 mg/dL 10/27/2024 5:53 PM EDT [facility] Bilirubin, Direct 1.10(H) 0.00 - 0.40 mg/dL 10/27/2024 5:53 PM EDT [facility] AST 62(H) 13 - 39 U/L 10/27/2024 5:53 PM EDT [facility] ALT 134(H) 7 - 52 U/L 10/27/2024 5:53 PM EDT [facility] Alkaline Phosphatase 27(L) 36 - 125 U/L 10/27/2024 5:53 PM EDT [facility] Total Protein 4.1(L) 6.4 - 8.9 g/dL 10/27/2024 5:53 PM EDT [facility] Albumin 2.9(L) 3.5 - 5.7 g/dL 10/27/2024 5:53 PM EDT [facility] Bilirubin, Indirect 0.60 0.00 - 1.10 mg/dL 10/27/2024 5:53 PM EDT [facility] Plasma 10/27/2024 5:13 PM EDT 10/27/2024 5:23 PM EDT Kemar Sahni MD LAB BLOOD ORDERABLES Final Result [facility] [address] [place] [address], [facility] * (ABNORMAL) Renal Function Panel w/EGFR (10/27/2024 5:13 PM EDT) Sodium 142 133 - 146 mmol/L 10/27/2024 5:53 PM EDT [facility] Potassium 3.4(L) 3.5 - 5.3 mmol/L 10/27/2024 5:53 PM EDT [facility] Chloride 109 98 - 110 mmol/L 10/27/2024 5:53 PM EDT [facility] CO2 22 21 - 33 mmol/L 10/27/2024 5:53 PM EDT [facility] Anion Gap 11 3 - 16 mmol/L 10/27/2024 5:53 PM EDT [facility] BUN 61(H) 7 - 25 mg/dL 10/27/2024 5:53 PM EDT [facility] Creatinine 2.42(H) 0.60 - 1.30 mg/dL 10/27/2024 5:53 PM EDT [facility] Glucose 125(H) 70 - 100 mg/dL 10/27/2024 5:53 PM EDT [facility] Calcium 8.8 8.6 - 10.3 mg/dL 10/27/2024 5:53 PM EDT [facility] Phosphorus 5.7(H) 2.1 - 4.7 mg/dL 10/27/2024 5:53 PM EDT [facility] Albumin 2.9(L) 3.5 - 5.7 g/dL 10/27/2024 5:53 PM EDT [facility] Osmolality, Calculated 313(H) 278 - 305 mOsm/kg 10/27/2024 5:53 PM EDT [facility] EGFR 34 10/27/2024 5:53 PM EDT [facility] Comment:As of 2021, the [...] Sahni MD LAB BLOOD ORDERABLES Final Result [facility] [address] [place] [address], [facility] * (ABNORMAL) CBC (10/27/2024 5:13 PM EDT) WBC 4.9 3.8 - 10.8 10E3/uL 10/27/2024 6:14 PM EDT [facility] RBC 2.44(L) 4.20 - 5.80 10E6/uL 10/27/2024 6:14 PM EDT [facility] Hemoglobin 7.4(L) 13.2 - 17.1 g/dL 10/27/2024 6:14 PM EDT [facility] Hematocrit 21.4(L) 38.5 - 50.0 % 10/27/2024 6:14 PM EDT [facility] MCV 87.6 80.0 - 100.0 fL 10/27/2024 6:14 PM EDT [facility] MCH 30.3 27.0 - 33.0 pg 10/27/2024 6:14 PM EDT [facility] MCHC 34.6 32.0 - 36.0 g/dL 10/27/2024 6:14 PM EDT [facility] RDW 19.6(H) 11.0 - 15.0 % 10/27/2024 6:14 PM EDT [facility] Platelets 47(L) 140 - 400 10E3/uL 10/27/2024 6:14 PM EDT [facility] Comment: CNV Specimen checked for clots. None detected. MPV 8.1 7.5 - 11.5 fL 10/27/2024 6:14 PM EDT [facility] Whole Blood 10/27/2024 5:13 PM EDT 10/27/2024 5:23 PM EDT Kemar Sahni MD LAB BLOOD ORDERABLES Final Result [facility] [address] * (ABNORMAL) POC Glucose Monitoring Device (10/27/2024 3:57 PM EDT) [facility] POC Glucose Monitoring Device 131(H) 70 - 100 mg/dL 10/27/2024 3:58 PM EDT [facility] Blood 10/27/2024 3:57 PM EDT 10/27/2024 3:58 PM EDT us Semaj Mcnair III, MD POINT OF CARE TEST ORDERABLES Final Result [facility] [address] * (ABNORMAL) CBC, STAT (10/27/2024 2:40 PM EDT) [facility] WBC 5.8 3.8 - 10.8 10E3/uL 10/27/2024 2:54 PM EDT [facility] RBC 2.43(L) 4.20 - 5.80 10E6/uL 10/27/2024 2:54 PM EDT [facility] Hemoglobin 7.5(L) 13.2 - 17.1 g/dL 10/27/2024 2:54 PM EDT [facility] Hematocrit 21.5(L) 38.5 - 50.0 % 10/27/2024 2:54 PM EDT [facility] MCV 88.2 80.0 - 100.0 fL 10/27/2024 2:54 PM EDT [facility] MCH 30.7 27.0 - 33.0 pg 10/27/2024 2:54 PM EDT [facility] MCHC 34.8 32.0 - 36.0 g/dL 10/27/2024 2:54 PM EDT [facility] RDW 19.1(H) 11.0 - 15.0 % 10/27/2024 2:54 PM EDT [facility] Platelets 50(L) 140 - 400 10E3/uL 10/27/2024 2:54 PM EDT [facility] MPV 7.5 7.5 - 11.5 fL 10/27/2024 2:54 PM EDT [facility] Whole Blood 10/27/2024 2:40 PM EDT 10/27/2024 2:44 PM EDT us John Moreno MD LAB BLOOD ORDERABLES Final R esult [facility] [address] [place] [address], [facility] * (ABNORMAL) Blood Gas, Arterial, STAT (10/27/2024 2:40 PM EDT) O2 Sat, Arterial 98 10/27/2024 2:46 PM EDT [facility] FIO2 RA 10/27/2024 2:46 PM EDT [facility] pH, Arterial 7.37 7.35 - 7.45 10/27/2024 2:46 PM EDT [facility] pCO2, Arterial 35 35 - 45 mm Hg 10/27/2024 2:46 PM EDT [facility] pO2, Arterial 92 80 - 100 mm Hg 10/27/2024 2:46 PM EDT [facility] HCO3, Arterial 21(L) 22 - 26 mmol/L 10/27/2024 2:46 PM EDT [facility] CO2 Content,Arteri al 21(L) 23 - 27 mmol/L 10/27/2024 2:46 PM EDT [facility] Base Excess, Arterial -4.6(L) -2.0 - 3.0 mmol/L 10/27/2024 2:46 PM EDT [facility] %HBO2, Arterial 95.4 95.0 - 98.0 % 10/27/2024 2:46 PM EDT [facility] Carboxyhemoglo bin, Arterial 1.6 % 10/27/2024 2:46 PM EDT [facility] Comment: CARBOXYHEMOGLOBIN (CO) REFERENCE RANGES: Non-Smokers: <2 % Smokers: <8 % TOXIC: >20 % Methemoglobin, Arterial 1.0 0.0 - 1.5 % 10/27/2024 2:46 PM EDT [facility] Reduced hemoglobin, Arterial 2.1 0.0 - 5.0 % 10/27/2024 2:46 PM EDT [facility] Blood, Arterial 10/27/2024 2 :40 PM EDT 10/27/2024 2:44 PM EDT Narrative [facility] - 10/27/2024 2:46 PM EDT Post extubation John Moreno MD LAB BLOOD ORDERABLES Final R esult [facility] [address] [facility]. [address] * (ABNORMAL) POC Glucose Monitoring Device (10/27/2024 2:06 PM EDT) POC Glucose Monitoring Device 134(H) 70 - 100 mg/dL 10/27/2024 2:06 PM EDT [facility] Blood 10/27/2024 2:06 PM EDT 10/27/2024 2:06 PM EDT Semaj Mcnair III, MD POINT OF CARE TEST ORDERABLES Final Result Performing Organization Address [facility]/ZIP Co de Phone Number [facility] [address] * (ABNORMAL) Blood gas, arterial (10/27/2024 12:35 PM EDT) O2 Sat, Arterial 99 10/27/2024 12:46 PM EDT [facility] FIO2 SBT 30% 10/27/2024 12:46 PM EDT [facility] pH, Arterial 7.35 7.35 - 7.45 10/27/2024 12:46 PM EDT [facility] pCO2, Arterial 37 35 - 45 mm Hg 10/27/2024 12:46 PM EDT [facility] pO2, Arterial 182(H) 80 - 100 mm Hg 10/27/2024 12:46 PM EDT [facility] HCO3, Arterial 21(L) 22 - 26 mmol/L 10/27/2024 12:46 PM EDT [facility] CO2 Content,Arteri al 22(L) 23 - 27 mmol/L 10/27/2024 12:46 PM EDT [facility] Base Excess, Arterial -4.8(L) -2.0 - 3.0 mmol/L 10/27/2024 12:46 PM EDT [facility] %HBO2, Arterial 96.3 95.0 - 98.0 % 10/27/2024 12:46 PM EDT [facility] Carboxyhemoglo bin, Arterial 1.7 % 10/27/2024 12:46 PM EDT [facility] Comment: CARBOXYHEMOGLOBIN (CO) REFERENCE RANGES: Non-Smokers: <2 % Smokers: <8 % TOXIC: >20 % Methemoglobin, Arterial 1.4 0.0 - 1.5 % 10/27/2024 12:46 PM EDT [facility] Reduced hemoglobin, Arterial 0.6 0.0 - 5.0 % 10/27/2024 12:46 PM EDT [facility] Blood, Arterial 10/27/2024 1 2:35 PM EDT 10/27/2024 12:42 PM EDT Narrative [facility] - 10/27/2024 12:46 PM EDT Please obtain post SBT us Shay Sifuentes MD LAB BLOOD ORDERABLES Final Resu lt [facility] [address] [id number], [facility] * (ABNORMAL) TEG-Bypass/ECMO/Liver HN (Factor function, Platelet/Fibrin Clot Strength w/Clot Breakdown, Heparinase In All Channels) (10/27/2024 12:07 PM EDT) [facility] Citrated Kaolin Reaction Time (TEGECMOLIVER) 7.9 4.6 - 9.1 minutes 10/27/2024 1:24 PM EDT [facility] Citrated Kaolin W/Heparinase Reaction Time (TEGECMOLIVER) 8.3 4.3 - 8.3 minutes 10/27/2024 1:24 PM EDT [facility] Citrated Kaolin Maximum Amplitude (TEGECMOLIVER) 52.0 52.0 - 69.0 mm 10/27/2024 1:24 PM EDT [facility] Citrated Functional Fibrinogen W/Heparinase Maximum Amplitude(TEGEC MOLIVER) 20.1 15.0 - 34.0 mm 10/27/2024 1:24 PM EDT [facility] Citrated Rapid Teg W/Heparinase Maximum Amplitude (TEGECMOLIVER) 49.4(L) 53.0 - 69.0 mm 10/27/2024 1:24 PM EDT [facility] Citrated Kaolin w/Heparinase Percent Lysis (TEGECMOLIVER) 0.0 0.0 - 3.2 % 10/27/2024 1:24 PM EDT [facility] Whole Blood (Citrate) 10/27/2024 12:07 PM EDT 10/27/2024 12:09 PM EDT Kemar Sahni MD LAB BLOOD ORDERABLES Final Result Performing Organization Address City/[facility]/ZIP Co de Phone Number [facility] [address] * (ABNORMAL) POC Glucose Monitoring Device (10/27/2024 12:01 PM EDT) POC Glucose Monitoring Device 121(H) 70 - 100 mg/dL 10/27/2024 12:02 PM EDT [facility] Blood 10/27/2024 12:0 1 PM EDT 10/27/2024 12:01 PM EDT Semaj Mcnair III, MD POINT OF CARE TEST ORDERABLES Final Result [facility] [address] [facility]. [address] * (ABNORMAL) POC Glucose Monitoring Device (10/27/2024 10:59 AM EDT) POC Glucose Monitoring Device 126(H) 70 - 100 mg/dL 10/27/2024 11:10 AM EDT [facility] Blood 10/27/2024 10:5 9 AM EDT 10/27/2024 11:10 AM EDT us Semaj Mcnair III, MD POINT OF CARE TEST ORDERABLES Final Result Performing Organization Address [facility] de Phone Number [facility] [address] * ECG 12 lead (MUSE) (10/27/2024 10:17 AM EDT) 10/27/2024 10:1 7 AM EDT Narrative MUSE - 10/27/2024 2:51 PM EDT Ventricular Rate: 91 BPM Atrial Rate: 91 BPM P-R Interval: 168 ms QRS Duration: 90 ms QT: 274 ms QTc: 337 ms P Bono: 60 degrees R Bono: -30 degrees T Bono: -15 degrees Diagnosis Line: NORMAL SINUS RHYTHM ^ LEFT AXIS DEVIATION, LEFT ANTERIOR HEMIBLOCK ^ NONSPECIFIC T WAVE CHANGE ^ ABNORMAL ECG ^ ^ Confirmed by MD ROLLY, [facility] ([id number]) on 10/27/2024 2:51:52 PM Shay Sifuentes MD ECG ORDERABLES Final Result Performing Organization Address [facility] de Phone Number MUSE * (ABNORMAL) POC Glucose Monitoring Device (10/27/2024 10:00 AM EDT) POC Glucose Monitoring Device 121(H) 70 - 100 mg/dL 10/27/2024 10:01 AM EDT [facility] Blood 10/27/2024 10:0 0 AM EDT 10/27/2024 10:01 AM EDT Semaj Mcnair III, MD POINT OF CARE TEST ORDERABLES Final Result Performing Organization Address [facility] Co de Phone Number [facility] [address] * US Renal Transplant (10/27/2024 9:51 [...] US ORDERABLES Final Result * US Duplex [id number] Comp (10/27/2024 9:51 AM EDT) Anatomical Region [...] EXAM: US ABDOMEN LIMITED EXAM: US DUPLEX [id number] COMPLETE INDICATION: Post-op liver transplant COMPARISON: None [...] absent.. Pancreas: Obscured by overlying bowel gas. [place] right kidney: 12.5 cm in length. Normal [...] EXAM: US ABDOMEN LIMITED EXAM: US DUPLEX [id number] COMPLETE INDICATION: Post-op liver transplant COMPARISON: None [...] absent.. Pancreas: Obscured by overlying bowel gas. [place] right kidney: 12.5 cm in length. Normal [...] EXAM: US ABDOMEN LIMITED EXAM: US DUPLEX [id number] COMPLETE INDICATION: Post-op liver transplant COMPARISON: None [...] absent.. Pancreas: Obscured by overlying bowel gas. [place] right kidney: 12.5 cm in length. Normal [...] EXAM: US ABDOMEN LIMITED EXAM: US DUPLEX [id number] COMPLETE INDICATION: Post-op liver transplant COMPARISON: None [...] absent.. Pancreas: Obscured by overlying bowel gas. [place] right kidney: 12.5 cm in length. Normal [...] - 100 mg/dL 10/27/2024 9:06 AM EDT [facility] Blood 10/27/2024 9:05 AM EDT 10/27/2024 9:06 AM EDT us Semaj Mcnair III, MD POINT OF CARE TEST ORDERABLES Final Result [facility] [address] [place] [address], [facility] * X-ray Portable Chest (10/27/2024 8:58 [...] - 15.1 seconds 10/27/2024 8:35 AM EDT [facility] INR 1.2(H) 0.9 - 1.1 10/27/2024 8:35 AM EDT [facility] Comment: RECOMMENDED THERAPEUTIC RANGES USING INR : Stable oral anticoagulant therapy: 2.0 - 3.0 Mechanical prosthetic heart valve: 2.5 - 3.5 Recurrent acute myocardial infarction: 2.5 - 3.5 Plasma 10/27/2024 8:16 AM EDT 10/27/2024 8:20 AM EDT John Moreno MD LAB BLOOD ORDERABLES Final R esult [facility] [address] * Magnesium (10/27/2024 8:00 AM EDT) Pathologist [facility] Magnesium 1.8 1.5 - 2.5 mg/dL 10/27/2024 10:50 AM EDT [facility] Plasma 10/27/2024 8:00 AM EDT 10/27/2024 10:31 AM EDT Kemar Sahni MD LAB BLOOD ORDERABLES Final Result [facility] [address] * (ABNORMAL) Renal Function Panel w/EGFR (10/27/2024 8:00 AM EDT) Sodium 142 133 - 146 mmol/L 10/27/2024 10:18 AM EDT [facility] Potassium 3.0(L) 3.5 - 5.3 mmol/L 10/27/2024 10:18 AM EDT [facility] Chloride 109 98 - 110 mmol/L 10/27/2024 10:18 AM EDT [facility] CO2 21 21 - 33 mmol/L 10/27/2024 10:18 AM EDT [facility] Anion Gap 12 3 - 16 mmol/L 10/27/2024 10:18 AM EDT [facility] BUN 59(H) 7 - 25 mg/dL 10/27/2024 10:18 AM EDT [facility] Creatinine 2.54(H) 0.60 - 1.30 mg/dL 10/27/2024 10:18 AM EDT [facility] Glucose 111(H) 70 - 100 mg/dL 10/27/2024 10:18 AM EDT [facility] Calcium 9.1 8.6 - 10.3 mg/dL 10/27/2024 10:18 AM EDT [facility] Phosphorus 5.5(H) 2.1 - 4.7 mg/dL 10/27/2024 10:18 AM EDT [facility] Albumin 3.0(L) 3.5 - 5.7 g/dL 10/27/2024 10:18 AM EDT [facility] Osmolality, Calculated 311(H) 278 - 305 mOsm/kg 10/27/2024 10:18 AM EDT [facility] EGFR 32 10/27/2024 10:18 AM EDT [facility] Comment:As of 2021, the [...] Sahni MD LAB BLOOD ORDERABLES Final Result [facility] [address] [place] [address], [facility] * (ABNORMAL) Hepatic Function Panel, STAT (10/27/2024 8:00 AM EDT) Total Bilirubin 1.3 0.0 - 1.5 mg/dL 10/27/2024 8:51 AM EDT [facility] Bilirubin, Direct 0.93(H) 0.00 - 0.40 mg/dL 10/27/2024 8:51 AM EDT [facility] AST 88(H) 13 - 39 U/L 10/27/2024 8:51 AM EDT [facility] ALT 149(H) 7 - 52 U/L 10/27/2024 8:51 AM EDT [facility] Alkaline Phosphatase 26(L) 36 - 125 U/L 10/27/2024 8:51 AM EDT [facility] Total Protein 4.0(L) 6.4 - 8.9 g/dL 10/27/2024 8:51 AM EDT [facility] Albumin 3.0(L) 3.5 - 5.7 g/dL 10/27/2024 8:51 AM EDT [facility] Bilirubin, Indirect 0.37 0.00 - 1.10 mg/dL 10/27/2024 8:51 AM EDT [facility] Plasma 10/27/2024 8:00 AM EDT 10/27/2024 8:20 AM EDT Semaj Mcnair III, MD LAB BLOOD ORDERABLE S Final Result [facility] [address] [place] [address], [facility] * (ABNORMAL) Lactic Acid, STAT (10/27/2024 8:00 AM EDT) Lactate 0.4(L) 0.5 - 2.2 mmol/L 10/27/2024 8:43 AM EDT [facility] Plasma 10/27/2024 8:00 AM EDT 10/27/2024 8:20 AM EDT us Semaj Mcnair III, MD LAB BLOOD ORDERABLE S Final Result [facility] [address] [place] [address], [facility] * (ABNORMAL) Blood Gas, Arterial, STAT (10/27/2024 8:00 AM EDT) O2 Sat, Arterial 100 10/27/2024 8:23 AM EDT [facility] pH, Arterial 7.36 7.35 - 7.45 10/27/2024 8:23 AM EDT [facility] pCO2, Arterial 37 35 - 45 mm Hg 10/27/2024 8:23 AM EDT [facility] pO2, Arterial 245(H) 80 - 100 mm Hg 10/27/2024 8:23 AM EDT [facility] HCO3, Arterial 22 22 - 26 mmol/L 10/27/2024 8:23 AM EDT [facility] CO2 Content,Arteri al 22(L) 23 - 27 mmol/L 10/27/2024 8:23 AM EDT [facility] Base Excess, Arterial -4.2(L) -2.0 - 3.0 mmol/L 10/27/2024 8:23 AM EDT [facility] %HBO2, Arterial 96.5 95.0 - 98.0 % 10/27/2024 8:23 AM EDT [facility] Carboxyhemoglo bin, Arterial 2.2 % 10/27/2024 8:23 AM EDT [facility] Comment: CARBOXYHEMOGLOBIN (CO) REFERENCE RANGES: Non-Smokers: <2 % Smokers: <8 % TOXIC: >20 % Methemoglobin, Arterial 1.2 0.0 - 1.5 % 10/27/2024 8:23 AM EDT [facility] Reduced hemoglobin, Arterial 0.0 0.0 - 5.0 % 10/27/2024 8:23 AM EDT [facility] Blood, Arterial 10/27/2024 8 :00 AM EDT 10/27/2024 8:19 AM EDT Narrative [facility] - 10/27/2024 8:23 AM EDT Specimen is beyond 15 minutes from time of collection. Results may be compromised. Review results critically. Kemar Sahni MD LAB BLOOD ORDERABLES Final Result [facility] [address] * (ABNORMAL) TEG-Bypass/ECMO/Liver HN (Factor function, Platelet/Fibrin Clot Strength w/Clot Breakdown, Heparinase In All Channels) (10/27/2024 8:00 AM EDT) [facility] Citrated Kaolin Reaction Time (TEGECMOLIVER) 7.8 4.6 - 9.1 minutes 10/27/2024 9:39 AM EDT [facility] Citrated Kaolin W/Heparinase Reaction Time (TEGECMOLIVER) 8.0 4.3 - 8.3 minutes 10/27/2024 9:39 AM EDT [facility] Citrated Kaolin Maximum Amplitude (TEGECMOLIVER) 52.7 52.0 - 69.0 mm 10/27/2024 9:39 AM EDT [facility] Citrated Functional Fibrinogen W/Heparinase Maximum Amplitude(TEGEC MOLIVER) 19.0 15.0 - 34.0 mm 10/27/2024 9:39 AM EDT [facility] Citrated Rapid Teg W/Heparinase Maximum Amplitude (TEGECMOLIVER) 49.5(L) 53.0 - 69.0 mm 10/27/2024 9:39 AM EDT [facility] Citrated Kaolin w/Heparinase Percent Lysis (TEGECMOLIVER) 0.0 0.0 - 3.2 % 10/27/2024 9:39 AM EDT [facility] Whole Blood (Citrate) 10/27/2024 8:00 AM EDT 10/27/2024 8:19 AM EDT Kemar Sahni MD LAB BLOOD ORDERABLES Final Result [facility] [address] * (ABNORMAL) Katie-Watkins virus VCA IgG Antibody (10/27/2024 8:00 AM EDT) EBV VCA IgG Positive( A) Negative 10/27/2024 11:30 AM EDT [facility] Comment:Presence of detectab le VCA IgG antibodies. 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 EBV IGG NUM 314.00(H) 0.00 - 17.99 U/mL 10/27/2024 11:30 AM EDT [facility] Serum 10/27/2024 8:00 AM EDT 10/27/2024 8:20 AM EDT Kemar Sahni MD LAB BLOOD ORDERABLES Final Result Performing Organization Address [facility] Co de Phone Number [facility] [address] [place] [address]. [address] * Hemoglobin A1c (10/27/2024 8:00 AM EDT) Pathologist [facility] Hemoglobin A1C 5.0 4.0 - 5.6 % 10/27/2024 11:12 AM EDT [facility] Comment: Hemoglobin A1c Interpretation [...] Final Result Performing Organization Address [facility] Co de Phone Number [facility] [address] [facility] * (ABNORMAL) POC Glucose Monitoring Device (10/27/2024 7:59 AM EDT) POC Glucose Monitoring Device 113(H) 70 - 100 mg/dL 10/27/2024 7:59 AM EDT [facility] Blood 10/27/2024 7:59 AM EDT 10/27/2024 7:59 AM EDT Semaj Mcnair III, MD POINT OF CARE TEST ORDERABLES Final Result [facility] [address] [place] [id number], [facility] * X-ray Abdomen AP view (10/27/2024 [...] with this report. Report Verified by: Lexx Hasnen MD at 10/27/2024 7:49 AM EDT Narrative [...] Transfuse RBC (10/27/2024 6:29 AM EDT) Ben Balke MD NURSING TREATMENT ORDERABLES - BLOOD ADMIN Final Result * Prepare Cryoprecipitate, 1 Units (10/27/2024 6:16 AM EDT) Product Code E5145M25 [facility] Unit Number [id number] [facility] Dispense Status Presumed Transfused_PT [facility] Blood Expiration Date [facility] Coding System LKNB591 [facility] Product Code T0158K50 [facility] Unit Number [id number] [facility] Dispense Status Presumed Transfused_PT [facility] Blood Expiration Date [facility] Coding System DQJI859 [facility] Blood Bank Product John Pina MD BLOOD BANK PRODUCT ORDERABLES F inal Result [facility] * Prepare Platelets, leukoreduced, 1 Units (10/27/2024 6:16 AM EDT) Product Code S0727P63 [facility] Unit Number [id number] [facility] Dispense Status Presumed Transfused_PT [facility] Blood Expiration Date [id number] [facility] Coding System TXLJ055 [facility] Blood Bank Product Eber Quinones MD BLOOD BANK PRODUCT ORDER PAL Final Result Performing Organization Address [facility] de Phone Number HC[facility] * Prepare Cryoprecipitate, 1 Units (10/27/2024 6:16 AM EDT) Product Code T9177A86 [facility] Unit Number [id number] [facility] Dispense Status Presumed Transfused_PT [facility] Blood Expiration Date HCLL Coding System JYGU091 [facility] Product Code G3237V04 [facility] Unit Number [id number] [facility] Dispense Status Presumed Transfused_PT [facility] Blood Expiration Date [id number] HCLL Coding System RZBT071 [facility] Blood Bank Product Eber Quinones MD BLOOD BANK PRODUCT ORDER PAL Final Result Performing Organization Address [facility] de Phone Number [facility] * Prepare Fresh Frozen Plasma, 10 Units (10/27/2024 6:16 AM EDT) Product Code O3784Y65 [facility] Unit Number [id number] [facility] Dispense Status Presumed Transfused_PT [facility]LL Blood Expiration Date HCLL Coding System GKCZ592 [facility] Product Code M3972G42 [facility] Unit Number [id number] [facility]LL Dispense Status Presumed Transfused_PT [facility]LL Blood Expiration Date 855330089678 HCLL Coding System OWNK833 [facility] Product Code T2472I41 [facility] Unit Number [id number] [facility] Dispense Status Presumed Transfused_PT [facility]LL Blood Expiration Date 511278225208 HCLL Coding System WVNP607 HC[facility] Product Code O9691S22 [facility] Unit Number [id number] [facility]LL Dispense Status Presumed Transfused_PT [facility]LL Blood Expiration Date 059129112960 HCLL Coding System FIDO252 [facility] Product Code S1186J79 [facility] Unit Number [id number] [facility]LL Dispense Status Released from Crossmatch_RE [facility]LL Blood Expiration Date 645760631408 HCLL Coding System WHSN366 HCLL Product Code B0711U81 [facility] Unit Number [id number] HCLL Dispense Status Released from Crossmatch_RE [facility]LL Blood Expiration Date HCLL Coding System CETL920 HCLL Product Code L6481K95 HC[facility] Unit Number [id number] HCLL Dispense Status Presumed Transfused_PT HCLL Blood Expiration Date HCLL Coding System PQFY361 HCLL Product Code T0789T48 HCLL Unit Number [id number] HCLL Dispense Status Presumed Transfused_PT HCLL Blood Expiration Date HCLL Coding System XKTI628 HCLL Product Code M5440K12 HCLL Unit Number [id number] HCLL Dispense Status Presumed Transfused_PT HCLL Blood Expiration Date HCLL Coding System MMPH929 HCLL Product Code V9424S98 HCLL Unit Number [id number] HCLL Dispense Status Presumed Transfused_PT HCLL Blood Expiration Date HCLL Coding System [id number] HCLL Blood Bank Product Leandra Og MD BLOOD BANK PRODUCT ORD ERABLES Final Result HCLL * Prepare Platelets, leukoreduced, 1 Units (10/27/2024 6:16 AM EDT) [facility] Product Code G1504S86 HCLL Unit Number [id number] HCLL Dispense Status Presumed Transfused_PT HCLL Blood Expiration Date [id number] HCLL Coding System [id number] HCLL Blood Bank Product Ben Blake MD BLOOD BANK PRODUCT ORDERABLES Final Result HCLL * Prepare Fresh Frozen Plasma (10/27/2024 6:15 AM EDT) Product Code E1778Z59 HCLL Unit Number [id number] HCLL Dispense Status Presumed Transfused_PT HCLL Blood Expiration Date HCLL Coding System [id number] HCLL Product Code R0088P17 HCLL Unit Number [id number] HCLL Dispense Status Released from Crossmatch_RE HCLL Blood Expiration Date HCLL Coding System BIVC504 HCLL Product Code B3852I57 HCLL Unit Number [id number] HCLL Dispense Status Presumed Transfused_PT HCLL Blood Expiration Date HCLL Coding System NHZW593 HCLL Product Code O9378M90 HCLL Unit Number [id number] HCLL Dispense Status Presumed Transfused_PT HCLL Blood Expiration Date HCLL Coding System OFTC191 HCLL Product Code B1508K56 HCLL Unit Number [id number] HCLL Dispense Status Released from Crossmatch_RE HCLL Blood Expiration Date HCLL Coding System [id number] HCLL Attending Provider Unknown BLOOD BANK PRODUCT OR DERABLES Final Result HCLL * Prepare RBC, leukoreduced (10/27/2024 6:15 AM EDT) Product Code Z3633V79 HCLL Unit Number [id number] HCLL Dispense Status Presumed Transfused_PT HCLL Blood Expiration Date HCLL Coding System UBLS265 HCLL Product Code Q0125R18 HCLL Unit Number [id number] HCLL Dispense Status Released from Crossmatch_RE HCLL Blood Expiration Date HCLL Coding System YASQ776 HCLL Product Code I2440Y87 HCLL Unit Number [id number] HCLL Dispense Status Released from Crossmatch_RE HCLL Blood Expiration Date 053416160012 HCLL Coding System EUKC981 HCLL Product Code E7562A06 HCLL Unit Number [id number] HCLL Dispense Status Released from Crossmatch_RE HCLL Blood Expiration Date 290289812881 HCLL Coding System IIAN435 HCLL Product Code I4235V02 HCLL Unit Number [id number] HCLL Dispense Status Released from Crossmatch_RE HCLL Blood Expiration Date 066417015500 HCLL Coding System KNZM810 HCLL us Attending Provider Unknown BLOOD BANK PRODUCT OR DERABLES Final Result HCLL * Prepare RBC, leukoreduced, 10 Units (10/27/2024 6:15 AM EDT) Product Code O7734C93 HCLL Unit Number [id number] HCLL Dispense Status Presumed Transfused_PT HCLL Blood Expiration Date 996189226598 HCLL Coding System XTVY394 HCLL Product Code Z7554W58 HCLL Unit Number [id number] HCLL Dispense Status Presumed Transfused_PT HCLL Blood Expiration Date 321139429455 HCLL Coding System UVLR440 HCLL Product Code G7058X70 HCLL Unit Number [id number] HCLL Dispense Status Presumed Transfused_PT HCLL Blood Expiration Date 395208598939 HCLL Coding System AFHB628 HCLL Product Code U9823L49 HCLL Unit Number [id number] HCLL Dispense Status Presumed Transfused_PT HCLL Blood Expiration Date 295349455796 HCLL Coding System SYFC752 HCLL Product Code X3212L87 HCLL Unit Number [id number] HCLL Dispense Status Presumed Transfused_PT HCLL Blood Expiration Date HCLL Coding System BPWX739 HCLL Product Code P1604H36 HCLL Unit Number [id number] HCLL Dispense Status Presumed Transfused_PT HCLL Blood Expiration Date 831807492112 HCLL Coding System WHTW119 HCLL Product Code L1242P32 HCLL Unit Number [id number] HCLL Dispense Status Presumed Transfused_PT HCLL Blood Expiration Date 323451900448 HCLL Coding System DWTG608 HCLL Product Code I4606S57 HCLL Unit Number [id number] HCLL Dispense Status Presumed Transfused_PT HCLL Blood Expiration Date 066240170385 HCLL Coding System RFQY567 HCLL Product Code S2302N18 HCLL Unit Number [id number] HCLL Dispense Status Presumed Transfused_PT HCLL Blood Expiration Date 615462002954 HCLL Coding System CYEZ147 HCLL Product Code Q0662W77 HCLL Unit Number [id number] HCLL Dispense Status Presumed Transfused_PT HCLL Blood Expiration Date 034340250975 HCLL Coding System LFTP934 HCLL Blood Bank Product Leandra Og MD BLOOD BANK PRODUCT ORD ERABLES Final Result HCLL * Transfuse Platelets (10/27/2024 6:09 AM EDT) Ben Blake MD NURSING TREATMENT ORDERABLES - BLOOD ADMIN Final Result * (ABNORMAL) Arterial Blood Gas Panel (10/27/2024 6:09 AM EDT) O2Sat (ABGP) 100 10/27/2024 6:17 AM EDT [facility] pH (ABGP) 7.30(L) 7.35 - 7.45 10/27/2024 6:17 AM EDT [facility] PCO2 (ABGP) 41 35 - 45 mm Hg 10/27/2024 6:17 AM EDT [facility] PO2 (ABGP) 192(H) 80 - 100 mm Hg 10/27/2024 6:17 AM EDT [facility] HCO3 (ABGP) 21(L) 22 - 26 mmol/L 10/27/2024 6:17 AM EDT [facility] CO2 Content (ABGP) 22(L) 23 - 27 mmol/L 10/27/2024 6:17 AM EDT [facility] Base Excess (ABGP) -5.7(L) -2.0 - 3.0 mmol/L 10/27/2024 6:17 AM T [facility] Sodium (ABGP) 138 136 - 146 mEq/L 10/27/2024 6:17 AM [facility] Potassium (ABGP) 3.3(L) 3.5 - 5.0 mEq/L 10/27/2024 6:17 AM [facility] Comment:In the event of in-v itro hemolysis, potassium results may be falsely elevated. Always interpret lab results in conjunction with clinical findings. If hemolysis is suspected, a serum sample may be collected for repeat assessment of potassium. Calcium, Free (ABGP) 5.28 4.50 - 5.30 mg/dL 10/27/2024 6:17 AM [facility] Glucose (ABGP) 112(H) 70 - 100 mg/dL 10/27/2024 6:17 AM [facility] Comment:There is interferenc e with whole blood glucose results on this method when Hematocrit is <25% or >60%. HCT (ABGP) 20.0(L) 40.0 - 52.0 % 10/27/2024 6:17 AM [facility] HGB (ABGP) 6.5(L) 14.0 - 18.0 g/dL 10/27/2024 6:17 AM [facility] %HBO2 (ABGP) 96.8 95.0 - 98.0 % 10/27/2024 6:17 AM [facility] Carboxyhgb (ABGP) 2.1 % 025 6:17 AM [facility] Comment: CARBOXYHEMOGLOBIN (CO) REFERENCE RANGES: Non-Smokers: <2 % Smokers: <8 % TOXIC: >20 % Methemoglobin (ABGP) 1.0 0.0 - 1.5 % 10/27/2024 6:17 AM [facility] Reduced Hemoglobin (ABGP) 0.2 0.0 - 5.0 % 10/27/2024 6:17 AM [facility] Lactic Acid (ABGP) 0.4(L) 0.5 - 1.6 mmol/L 10/27/2024 6:17 AM [facility] Blood, Arterial 10/27/2024 6 :09 AM EDT 10/27/2024 6:14 AM EDT Result Tiburcio Blake MD LAB BLOOD ORDERABLES Final Re sult Performing Organization Address [facility] de Phone Number [facility] [address] [facility] * Transfuse Fresh Frozen Plasma (10/27/2024 5:49 AM EDT) Result Tiburcio Blake MD NURSING TREATMENT ORDERABLES - BLOOD ADMIN Final Result * Transfuse Cryoprecipitate (10/27/2024 4:56 AM EDT) Result Tiburcio Blake MD NURSING TREATMENT ORDERABLES - BLOOD ADMIN Final Result * Transfuse Cryoprecipitate (10/27/2024 4:49 AM EDT) Result Tiburcio Blake MD NURSING TREATMENT ORDERABLES - BLOOD ADMIN Final Result * (ABNORMAL) POC Glucose Monitoring Device (10/27/2024 4:46 AM EDT) [facility] POC Glucose Monitoring Device 124(H) 70 - 100 mg/dL 10/27/2024 4:47 AM EDT [facility] Blood 10/27/2024 4:46 AM EDT 10/27/2024 4:47 AM EDT Result [facility] Semaj Mcnair III, MD POINT OF CARE TEST ORDERABLES Final Result Performing Organization Address [facility] Co de Phone Number [facility] [address] [facility] * Transfuse Platelets (10/27/2024 4:24 AM EDT) Result Tiburcio Blake MD NURSING TREATMENT ORDERABLES - BLOOD ADMIN Final Result * Transfuse Fresh Frozen Plasma (10/27/2024 4:07 AM EDT) Result Tiburcio Blake MD NURSING TREATMENT ORDERABLES - BLOOD ADMIN Final Result * Transfuse RBC (10/27/2024 3:52 AM EDT) us Ben Blake MD NURSING TREATMENT ORDERABLES - BLOOD ADMIN Final Result * (ABNORMAL) Arterial Blood Gas Panel (10/27/2024 3:07 AM EDT) O2Sat (ABGP) 100 10/27/2024 3:21 AM EDT [facility] pH (ABGP) 7.32(L) 7.35 - 7.45 10/27/2024 3:21 AM EDT [facility] PCO2 (ABGP) 38 35 - 45 mm Hg 10/27/2024 3:21 AM EDT [facility] PO2 (ABGP) 176(H) 80 - 100 mm Hg 10/27/2024 3:21 AM EDT [facility] HCO3 (ABGP) 20(L) 22 - 26 mmol/L 10/27/2024 3:21 AM EDT [facility] CO2 Content (ABGP) 21(L) 23 - 27 mmol/L 10/27/2024 3:21 AM EDT [facility] Base Excess (ABGP) -6.0(L) -2.0 - 3.0 mmol/L 10/27/2024 3:21 AM EDT [facility] Sodium (ABGP) 138 136 - 146 mEq/L 10/27/2024 3:21 AM [facility] Potassium (ABGP) 3.0(L) 3.5 - 5.0 mEq/L 10/27/2024 3:21 AM [facility] Comment:In the event of in-v itro hemolysis, potassium results may be falsely elevated. Always interpret lab results in conjunction with clinical findings. If hemolysis is suspected, a serum sample may be collected for repeat assessment of potassium. Calcium, Free (ABGP) 5.28 4.50 - 5.30 mg/dL 10/27/2024 3:21 AM [facility] Glucose (ABGP) 108(H) 70 - 100 mg/dL 10/27/2024 3:21 AM [facility] Comment:There is interferenc e with whole blood glucose results on this method when Hematocrit is <25% or >60%. HCT (ABGP) 22.0(L) 40.0 - 52.0 % 10/27/2024 3:21 AM T [facility] HGB (ABGP) 7.3(L) 14.0 - 18.0 g/dL 10/27/2024 3:21 AM EDT [facility] %HBO2 (ABGP) 97.3 95.0 - 98.0 % 10/27/2024 3:21 AM EDT [facility] Carboxyhgb (ABGP) 1.9 % 025 3:21 AM EDT [facility] Comment: CARBOXYHEMOGLOBIN (CO) REFERENCE RANGES: Non-Smokers: <2 % Smokers: <8 % TOXIC: >20 % Methemoglobin (ABGP) 0.8 0.0 - 1.5 % 10/27/2024 3:21 AM EDT [facility] Reduced Hemoglobin (ABGP) 0.0 0.0 - 5.0 % 10/27/2024 3:21 AM EDT [facility] Lactic Acid (ABGP) 0.3(L) 0.5 - 1.6 mmol/L 10/27/2024 3:21 AM EDT [facility] Blood, Arterial 10/27/2024 3 :07 AM EDT 10/27/2024 3:14 AM EDT us Ben Blake MD LAB BLOOD ORDERABLES Final Re sult Performing Organization Address City/State/[facility] Co de Phone Number [facility] [address] * Surgical Pathology Exam (10/27/2024 2:38 AM EDT) Tissue LEFT KIDNEY STRUCTURE / Unknown 10/27/2024 2:38 AM EDT Narrative [facility] - 10/27/2024 12:00 AM EDT CASE: [id number] PATIENT: BLAIR GILBERT Clinical History: Transplant kidney with bile duct reconstruction Pre-Operative Diagnosis: Acute kidney injury superimposed on CKD Post-Operative Diagnosis: None Given Specimen(s) Submitted: A. baseline renal biopsy ; B. right lobe liver biopsy; C. left lobe liver biopsy CPT Code(s): 79515 X 1; 15526 X 2; 66538 X 4 Additional Information: FINAL DIAGNOSIS: A. [...] parenchyma, which is entirely submitted in cassette [id number] A1. (NAA Mckeon/rr) B. Received in formalin, labeled with the patient's name Blair Gilbert and right lobe liver biopsy are two green-brown tissue cores measuring 1.8 and 2.0 cm in length, each with a diameter of 0.1 cm, which are entirely submitted between blue biopsy sponges in cassette [id number] B1-B2. (NAA Mckeon/ns) C. Received in formalin, labeled with the patient's name Blair Gilbert and left lobe liver biopsy are two green-georges tissue cores measuring 1.2 and 1.4 cm in length, each with a diameter of 0.1 cm, which are entirely submitted between blue biopsy sponges in cassette [id number] C1-C2. (NAA Mckeon/ns) Microscopic Description: I, the attending pathologist, have personally reviewed all prosector/resident work and pathology slides to determine final diagnosis. Control Materials Reacted Appropriately. Final Diagnosis performed by CLARE FALL MD Pathologist Electronically signed 10/31/2024 01:07:09 PM The Pathologist signing this report is located at [facility], [address] [place] [address], Pending sale to [facility], , CLIA ID: [id number] ADDENDUM: A. Kidney, allograft, baseline, wedge biopsy: [...] Pathologist signing this report is located at [facility], [address] [place] [address], Pending sale to [facility], , CLIA ID: [id number] Kemar Sahni MD PATHOLOGY/CYTOLOGY ORDERABL ES Edited Result - Final Performing Organization Address [facility]/ZIP Co de Phone Number [facility] * Anaerobic culture (10/27/2024 2:15 AM EDT) Culture Result No Anaerobes Isolated in 5 Days [facility] Fluid SPECIMEN FROM KIDNEY / Unknown 10/27/2024 2:15 AM EDT 10/27/2024 4:24 AM EDT Narrative [facility] - 10/31/2024 11:43 AM EDT 1) perfusate Semaj Mcnair III, MD MICROBIOLOGY - GENE RAL ORDERABLES Final Result Performing Organization Address [facility]/State/ZIP Co de Phone Number [facility] [address] [place] [address] * Fungus culture (10/27/2024 2:15 AM EDT) Culture Result No Fungus Isolated At 4 Weeks [facility] Fluid SPECIMEN FROM KIDNEY / Unknown 10/27/2024 2:15 AM EDT 10/27/2024 4:24 AM EDT Narrative [facility] - 11/24/2024 7:52 AM EDT 1) perfusate Semaj Mcnair III, MD MICROBIOLOGY - GENE RAL ORDERABLES Final Result Performing Organization Address [facility] de Phone Number [facility] [address] * Routine Culture plus Stain (10/27/2024 2:15 AM EDT) Gram Stain Result No Polymorphonuclear Leukocytes Seen [facility] Gram Stain Result No Organisms Seen; [facility] Culture Result No Growth After 3 Days [facility] Fluid SPECIMEN FROM KIDNEY / Unknown 10/27/2024 2:15 AM EDT 10/27/2024 4:24 AM EDT Narrative [facility] - 10/30/2024 9:26 AM EDT 1) perfusate Semaj Mcnair III, MD MICROBIOLOGY - GENE RAL ORDERABLES Final Result Performing Organization Address [facility] de Phone Number [facility] [address] [facility] * Transfuse Platelets Transfusion Rate: Per dept routine (10/27/2024 1:52 AM EDT) John Pina MD NURSING TREATMENT ORDERABLES - BLOOD ADMIN Final Result Performing Organization Address [facility] de Phone Number EXTERNAL * Transfuse Platelets Transfusion Rate: Per dept routine, 1 Units (10/27/2024 1:52 AM EDT) John Pina MD NURSING TREATMENT ORDERABLES - BLOOD ADMIN Final Result Performing Organization Address [facility] de Phone Number EXTERNAL * (ABNORMAL) TEG-Standard Global Hemostasis (Rapid TEG with Heparin Effect, Contains a Baseline TEG) (10/27/2024 1:51 AM EDT) Citrated Kaolin Reaction Time (TEGHEPARINASE) 10.6(H) 4.6 - 9.1 minutes 10/27/2024 2:44 AM EDT [facility] Citrated Rapid Teg Maximum Amplitude (TEGHEPARINASE) 42.3(L) 52.0 - 70.0 mm 10/27/2024 2:44 AM EDT [facility] Citrated Functional Fibrinogen Maximum Amplitude (TEGHEPARINASE) 15.0 15.0 - 32.0 mm 10/27/2024 2:44 AM EDT [facility] Citrated Kaolin W/Heparinase Reaction Time (TEGHEPARINASE) 10.5(H) 4.3 - 8.3 minutes 10/27/2024 2:44 AM EDT [facility] Citrated Kaolin K-Time (TEGHEPARINASE) 2.9(A) 0.8 - 2.1 minutes 10/27/2024 2:44 AM EDT [facility] Citrated Kaolin Angle (TEGHEPARINASE) 60.4(A) 63.0 - 78.0 degrees 10/27/2024 2:44 AM EDT [facility] Citrated Kaolin Maximum Amplitude (TEGHEPARINASE) 42.9(L) 52.0 - 69.0 mm 10/27/2024 2:44 AM EDT [facility] Citrated Functional Fibrinogen- Fibrinogen Level (TEGHEPARINASE) 273.7(L) 278.0 - 581.0 mg/dL 10/27/2024 2:44 AM EDT [facility] Whole Blood (Citrate) 10/27/2024 1:51 AM EDT 10/27/2024 2:03 AM EDT us John Pina MD LAB BLOOD ORDERABLES Final Resu lt Performing Organization Address City/State/[facility] Co de Phone Number [facility] [address] [id number] * (ABNORMAL) POC Glucose Monitoring Device (10/27/2024 1:50 AM EDT) [facility] POC Glucose Monitoring Device 121(H) 70 - 100 mg/dL 10/27/2024 1:51 AM EDT [facility] Blood 10/27/2024 1:50 AM EDT 10/27/2024 1:51 AM EDT Semaj Mcnair III, MD POINT OF CARE TEST ORDERABLES Final Result Performing Organization Address [facility] de Phone Number [facility] [address] [facility] * Transfuse Cryoprecipitate Transfusion Rate: Per dept routine (10/27/2024 1:25 AM EDT) John Pina MD NURSING TREATMENT ORDERABLES - BLOOD ADMIN Final Result Performing Organization Address [facility] de Phone Number EXTERNAL * Transfuse Cryoprecipitate Transfusion Rate: Per dept routine, 1 Units (10/27/2024 1:25 AM EDT) John Pina MD NURSING TREATMENT ORDERABLES - BLOOD ADMIN Final Result Performing Organization Address [facility] de Phone Number EXTERNAL * (ABNORMAL) POC Glucose Monitoring Device (10/27/2024 1:21 AM EDT) POC Glucose Monitoring Device 123(H) 70 - 100 mg/dL 10/27/2024 1:22 AM EDT [facility] Blood 10/27/2024 1:21 AM EDT 10/27/2024 1:21 AM EDT Semaj Mcnair III, MD POINT OF CARE TEST ORDERABLES Final Result Performing Organization Address [facility] de Phone Number [facility] [address] [facility] * Transfuse Fresh Frozen Plasma Transfusion Rate: Per dept routine (10/27/2024 1:03 AM EDT) John Pina MD NURSING TREATMENT ORDERABLES - BLOOD ADMIN Final Result Performing Organization Address [facility] de Phone Number EXTERNAL * Transfuse Fresh Frozen Plasma Transfusion Rate: Per dept routine, 1 Units (10/27/2024 1:03 AM EDT) us John Pina MD NURSING TREATMENT ORDERABLES - BLOOD ADMIN Final Result Performing Organization Address [facility] de Phone Number EXTERNAL * Calcium Free, Serum (10/27/2024 12:13 AM EDT) Free Calcium, Ser 5.20 4.40 - 5.40 mg/dL 10/27/2024 12:37 AM EDT [facility] Comment:Free calcium levels vary inversely with pH by approximately 5% for each 0.1 unit of pH change. Assay results have been normalized to pH = 7.40. Serum 10/27/2024 12:1 3 AM EDT 10/27/2024 12:29 AM EDT Narrative [facility] - 10/27/2024 12:37 AM EDT This test has been developed and its performance characteristics determined by [facility] which is certified under [...] ORDERABLES Final Resu lt [facility] [address] [id number] * (ABNORMAL) Blood Gas, Arterial, STAT (10/27/2024 12:13 AM EDT) O2 Sat, Arterial 100 10/27/2024 12:23 AM EDT [facility] FIO2 30 10/27/2024 12:23 AM EDT [facility] pH, Arterial 7.32(L) 7.35 - 7.45 10/27/2024 12:23 AM EDT [facility] pCO2, Arterial 37 35 - 45 mm Hg 10/27/2024 12:23 AM EDT [facility] pO2, Arterial 137(H) 80 - 100 mm Hg 10/27/2024 12:23 AM EDT [facility] HCO3, Arterial 20(L) 22 - 26 mmol/L 10/27/2024 12:23 AM EDT [facility] CO2 Content,Arteri al 20(L) 23 - 27 mmol/L 10/27/2024 12:23 AM EDT [facility] Base Excess, Arterial -6.4(L) -2.0 - 3.0 mmol/L 10/27/2024 12:23 AM EDT [facility] %HBO2, Arterial 96.2 95.0 - 98.0 % 10/27/2024 12:23 AM EDT [facility] Carboxyhemoglo bin, Arterial 1.9 % 10/27/2024 12:23 AM EDT [facility] Comment: CARBOXYHEMOGLOBIN (CO) REFERENCE RANGES: Non-Smokers: <2 % Smokers: <8 % TOXIC: >20 % Methemoglobin, Arterial 1.5 0.0 - 1.5 % 10/27/2024 12:23 AM EDT [facility] Reduced hemoglobin, Arterial 0.4 0.0 - 5.0 % 10/27/2024 12:23 AM EDT [facility] Blood, Arterial 10/27/2024 1 2:13 AM EDT 10/27/2024 12:18 AM EDT us John Pina MD LAB BLOOD ORDERABLES Final Resu lt Performing Organization Address City/State/[facility] Co de Phone Number [facility] [address] [id number] * (ABNORMAL) TEG-Bypass/ECMO/Liver HN (Factor function, Platelet/Fibrin Clot Strength w/Clot Breakdown, Heparinase In All Channels) (10/27/2024 12:13 AM EDT) [facility] Citrated Kaolin Reaction Time (TEGECMOLIVER) 9.1 4.6 - 9.1 minutes 10/27/2024 1:43 AM EDT [facility] Citrated Kaolin W/Heparinase Reaction Time (TEGECMOLIVER) 9.7(H) 4.3 - 8.3 minutes 10/27/2024 1:43 AM EDT [facility] Citrated Kaolin Maximum Amplitude (TEGECMOLIVER) <40.0(L) 52.0 - 69.0 mm 10/27/2024 1:43 AM EDT [facility] Citrated Functional Fibrinogen W/Heparinase Maximum Amplitude(TEGEC MOLIVER) 11.9(L) 15.0 - 34.0 mm 10/27/2024 1:43 AM EDT [facility] Citrated Rapid Teg W/Heparinase Maximum Amplitude (TEGECMOLIVER) 31.6(L) 53.0 - 69.0 mm 10/27/2024 1:43 AM EDT [facility] Citrated Kaolin w/Heparinase Percent Lysis (TEGECMOLIVER) 0.0 0.0 - 3.2 % 10/27/2024 1:43 AM EDT [facility] Whole Blood (Citrate) 10/27/2024 12:13 AM EDT 10/27/2024 12:18 AM EDT Kemar Sahni MD LAB BLOOD ORDERABLES Final Result [facility] [address] [facility] * (ABNORMAL) Lactic Acid (10/27/2024 12:13 AM EDT) Lactate 0.2(L) 0.5 - 2.2 mmol/L 10/27/2024 12:59 AM EDT [facility] Plasma 10/27/2024 12:1 3 AM EDT 10/27/2024 12:31 AM EDT Kemar Sahni MD LAB BLOOD ORDERABLES Final Result Performing Organization Address [facility]/ZIP Co de Phone Number [facility] [address] [facility] * Magnesium (10/27/2024 12:13 AM EDT) Magnesium 1.8 1.5 - 2.5 mg/dL 10/27/2024 12:52 AM EDT [facility] Plasma 10/27/2024 12:1 3 AM EDT 10/27/2024 12:29 AM EDT Kemar Sahni MD LAB BLOOD ORDERABLES Final Result [facility] [address] [facility] * (ABNORMAL) Hepatic Function Panel (10/27/2024 12:13 AM EDT) Total Bilirubin 1.6(H) 0.0 - 1.5 mg/dL 10/27/2024 12:52 AM EDT [facility] Bilirubin, Direct 1.17(H) 0.00 - 0.40 mg/dL 10/27/2024 12:52 AM EDT [facility] AST 157(H) 13 - 39 U/L 10/27/2024 12:52 AM EDT [facility] ALT 261(H) 7 - 52 U/L 10/27/2024 12:52 AM EDT [facility] Alkaline Phosphatase 26(L) 36 - 125 U/L 10/27/2024 12:52 AM EDT [facility] Total Protein 3.8(L) 6.4 - 8.9 g/dL 10/27/2024 12:52 AM EDT [facility] Albumin 2.8(L) 3.5 - 5.7 g/dL 10/27/2024 12:52 AM EDT [facility] Bilirubin, Indirect 0.43 0.00 - 1.10 mg/dL 10/27/2024 12:52 AM EDT [facility] Plasma 10/27/2024 12:1 3 AM EDT 10/27/2024 12:29 AM EDT Kemar Sahni MD LAB BLOOD ORDERABLES Final Result Performing Organization Address City/State/[facility] Co de Phone Number [facility] [address] * (ABNORMAL) Protime-INR (10/27/2024 12:13 AM EDT) Protime 18.6(H) 12.1 - 15.1 seconds 10/27/2024 12:43 AM EDT [facility] INR 1.5(H) 0.9 - 1.1 10/27/2024 12:43 AM EDT [facility] Comment: RECOMMENDED THERAPEUTIC RANGES USING INR : Stable oral anticoagulant therapy: 2.0 - 3.0 Mechanical prosthetic heart valve: 2.5 - 3.5 Recurrent acute myocardial infarction: 2.5 - 3.5 Plasma 10/27/2024 12:1 3 AM EDT 10/27/2024 12:29 AM EDT Kemar Sahni MD LAB BLOOD ORDERABLES Final Result [facility] [address] [place] [address], [facility] * (ABNORMAL) CBC (10/27/2024 12:13 AM EDT) WBC 5.0 3.8 - 10.8 10E3/uL 10/27/2024 12:59 AM EDT [facility] RBC 2.70(L) 4.20 - 5.80 10E6/uL 10/27/2024 12:59 AM EDT [facility] Hemoglobin 8.5(L) 13.2 - 17.1 g/dL 10/27/2024 12:59 AM EDT [facility] Hematocrit 23.9(L) 38.5 - 50.0 % 10/27/2024 12:59 AM EDT [facility] MCV 88.5 80.0 - 100.0 fL 10/27/2024 12:59 AM EDT [facility] MCH 31.5 27.0 - 33.0 pg 10/27/2024 12:59 AM EDT [facility] MCHC 35.6 32.0 - 36.0 g/dL 10/27/2024 12:59 AM EDT [facility] RDW 20.6(H) 11.0 - 15.0 % 10/27/2024 12:59 AM EDT [facility] Platelets 35(L) 140 - 400 10E3/uL 10/27/2024 12:59 AM EDT [facility] Comment: CNV Specimen checked for clots. None detected. MPV 7.6 7.5 - 11.5 fL 10/27/2024 12:59 AM EDT [facility] Whole Blood 10/27/2024 12:1 3 AM EDT 10/27/2024 12:29 AM EDT us Kemar Sahni MD LAB BLOOD ORDERABLES Final Result [facility] [address] [place] [address], [facility] * (ABNORMAL) Renal Function Panel w/EGFR (10/27/2024 12:13 AM EDT) Sodium 141 133 - 146 mmol/L 10/27/2024 12:52 AM EDT [facility] Potassium 3.2(L) 3.5 - 5.3 mmol/L 10/27/2024 12:52 AM EDT [facility] Chloride 109 98 - 110 mmol/L 10/27/2024 12:52 AM EDT [facility] CO2 21 21 - 33 mmol/L 10/27/2024 12:52 AM EDT [facility] Anion Gap 11 3 - 16 mmol/L 10/27/2024 12:52 AM EDT [facility] BUN 64(H) 7 - 25 mg/dL 10/27/2024 12:52 AM EDT [facility] Creatinine 2.58(H) 0.60 - 1.30 mg/dL 10/27/2024 12:52 AM EDT [facility] Glucose 126(H) 70 - 100 mg/dL 10/27/2024 12:52 AM EDT [facility] Calcium 8.9 8.6 - 10.3 mg/dL 10/27/2024 12:52 AM EDT [facility] Phosphorus 5.3(H) 2.1 - 4.7 mg/dL 10/27/2024 12:52 AM EDT [facility] Albumin 2.8(L) 3.5 - 5.7 g/dL 10/27/2024 12:52 AM EDT [facility] Osmolality, Calculated 312(H) 278 - 305 mOsm/kg 10/27/2024 12:52 AM EDT [facility] EGFR 31 10/27/2024 12:52 AM EDT [facility] Comment:As of 2021, the [...] BLOOD ORDERABLES Final Result Performing Organization Address City/[facility]/ZIP Co de Phone Number [facility] [address] [facility]. [address] * (ABNORMAL) POC Glucose Monitoring Device (10/27/2024 12:08 AM EDT) POC Glucose Monitoring Device 121(H) 70 - 100 mg/dL 10/27/2024 12:08 AM EDT [facility] Blood 10/27/2024 12:0 8 AM EDT 10/27/2024 12:08 AM EDT Semaj Mcnair III, MD POINT OF CARE TEST ORDERABLES Final Result Performing Organization Address City/[facility]/ZIP Co de Phone Number [facility] [address] [facility] * (ABNORMAL) POC Glucose Monitoring Device (10/26/2024 11:15 PM EDT) POC Glucose Monitoring Device 120(H) 70 - 100 mg/dL 10/26/2024 11:15 PM EDT [facility] Blood 10/26/2024 11:1 5 PM EDT 10/26/2024 11:15 PM EDT us Semaj Mcnair III, MD POINT OF CARE TEST ORDERABLES Final Result Performing Organization Address City/[facility]/ZIP Co de Phone Number [facility] [address] * (ABNORMAL) TEG-Bypass/ECMO/Liver HN (Factor function, Platelet/Fibrin Clot Strength w/Clot Breakdown, Heparinase In All Channels) (10/26/2024 10:36 PM EDT) Pathologist [facility] Citrated Kaolin Reaction Time (TEGECMOLIVER) 10.0(H) 4.6 - 9.1 minutes 10/26/2024 11:53 PM EDT [facility] Citrated Kaolin W/Heparinase Reaction Time (TEGECMOLIVER) 10.2(H) 4.3 - 8.3 minutes 10/26/2024 11:53 PM EDT [facility] Citrated Kaolin Maximum Amplitude (TEGECMOLIVER) <40.0(L) 52.0 - 69.0 mm 10/26/2024 11:53 PM EDT [facility] Citrated Functional Fibrinogen W/Heparinase Maximum Amplitude(TEGEC MOLIVER) 11.3(L) 15.0 - 34.0 mm 10/26/2024 11:53 PM EDT [facility] Citrated Rapid Teg W/Heparinase Maximum Amplitude (TEGECMOLIVER) 41.8(L) 53.0 - 69.0 mm 10/26/2024 11:53 PM EDT [facility] Citrated Kaolin w/Heparinase Percent Lysis (TEGECMOLIVER) 0.0 0.0 - 3.2 % 10/26/2024 11:53 PM EDT [facility] Whole Blood (Citrate) 10/26/2024 10:36 PM EDT 10/26/2024 10:43 PM EDT Kemar Sahni MD LAB BLOOD ORDERABLES Final Result [facility] [address] * (ABNORMAL) POC Glucose Monitoring Device (10/26/2024 10:14 PM EDT) POC Glucose Monitoring Device 124(H) 70 - 100 mg/dL 10/26/2024 11:11 PM EDT [facility] Blood 10/26/2024 10:1 4 PM EDT 10/26/2024 11:11 PM EDT us Semaj Mcnair III, MD POINT OF CARE TEST ORDERABLES Final Result Performing Organization Address City/[facility]/ZIP Co de Phone Number [facility] [address] [place] [address] * (ABNORMAL) POC Glucose Monitoring Device (10/26/2024 9:16 PM EDT) POC Glucose Monitoring Device 119(H) 70 - 100 mg/dL 10/26/2024 9:18 PM EDT [facility] Blood 10/26/2024 9:16 PM EDT 10/26/2024 9:18 PM EDT Semaj Mcnair III, MD POINT OF CARE TEST ORDERABLES Final Result Performing Organization Address City/[facility] Co de Phone Number [facility] [address] [facility] * (ABNORMAL) POC Glucose Monitoring Device (10/26/2024 8:05 PM EDT) POC Glucose Monitoring Device 113(H) 70 - 100 mg/dL 10/26/2024 8:06 PM EDT [facility] Blood 10/26/2024 8:05 PM EDT 10/26/2024 8:06 PM EDT us Semaj cMnair III, MD POINT OF CARE TEST ORDERABLES Final Result Performing Organization Address City/[facility] Co de Phone Number [facility] [address] * (ABNORMAL) POC Glucose Monitoring Device (10/26/2024 7:02 PM EDT) POC Glucose Monitoring Device 111(H) 70 - 100 mg/dL 10/26/2024 7:03 PM EDT [facility] Blood 10/26/2024 7:02 PM EDT 10/26/2024 7:03 PM EDT us Semaj Mcnair III, MD POINT OF CARE TEST ORDERABLES Final Result Performing Organization Address City/[facility]/ZIP Co de Phone Number [facility] [address] [facility] * Transfuse Cryoprecipitate Transfusion Rate: Per dept routine (10/26/2024 6:39 PM EDT) us John Pina MD NURSING TREATMENT ORDERABLES - BLOOD ADMIN Final Result Performing Organization Address City/[facility] Co de Phone Number EXTERNAL * Transfuse Cryoprecipitate Transfusion Rate: Per dept routine, 1 Units (10/26/2024 6:39 PM EDT) us John Pina MD NURSING TREATMENT ORDERABLES - BLOOD ADMIN Final Result Performing Organization Address City/[facility] Co de Phone Number EXTERNAL * (ABNORMAL) POC Glucose Monitoring Device (10/26/2024 6:33 PM EDT) POC Glucose Monitoring Device 110(H) 70 - 100 mg/dL 10/26/2024 6:34 PM EDT [facility] Blood 10/26/2024 6:33 PM EDT 10/26/2024 6:34 PM EDT us Semaj Mcnair III, MD POINT OF CARE TEST ORDERABLES Final Result Performing Organization Address City/[facility] Co de Phone Number [facility] [address] [facility] * Transfuse Cryoprecipitate Transfusion Rate: Per dept routine (10/26/2024 6:22 PM EDT) us John Pina MD NURSING TREATMENT ORDERABLES - BLOOD ADMIN Final Result Performing Organization Address City/[facility] Co de Phone Number EXTERNAL * Transfuse Cryoprecipitate Transfusion Rate: Per dept routine, 1 Units (10/26/2024 6:22 PM EDT) John Pina MD NURSING TREATMENT ORDERABLES - BLOOD ADMIN Final Result EXTERNAL * (ABNORMAL) POC Glucose Monitoring Device (10/26/2024 6:17 PM EDT) POC Glucose Monitoring Device 104(H) 70 - 100 mg/dL 10/26/2024 6:18 PM EDT [facility] Blood 10/26/2024 6:17 PM EDT 10/26/2024 6:18 PM EDT us Semaj Mcnair III, MD POINT OF CARE TEST ORDERABLES Final Result Performing Organization Address [facility] Co de Phone Number [facility] [address] [facility] * (ABNORMAL) POC Glucose Monitoring Device (10/26/2024 4:58 PM EDT) POC Glucose Monitoring Device 115(H) 70 - 100 mg/dL 10/26/2024 4:59 PM EDT [facility] Blood 10/26/2024 4:58 PM EDT 10/26/2024 4:58 PM EDT Semaj Mcnair III, MD POINT OF CARE TEST ORDERABLES Final Result Performing Organization Address [facility] Co de Phone Number [facility] [address] * (ABNORMAL) Calcium Free, Serum (10/26/2024 4:42 PM EDT) Free Calcium, Ser 5.67(H) 4.40 - 5.40 mg/dL 10/26/2024 4:55 PM EDT [facility] Comment:Free calcium levels vary inversely with pH by approximately 5% for each 0.1 unit of pH change. Assay results have been normalized to pH = 7.40. Serum 10/26/2024 4:42 PM EDT 10/26/2024 4:47 PM EDT Narrative [facility] - 10/26/2024 4:55 PM EDT This test has been developed and its performance characteristics determined by [facility] which is certified under [...] Resu lt Performing Organization Address [facility] Co de Phone Number [facility] [address] [place] [address] * Repeat Crossmatch (Recipient Sample) (10/26/2024 4:42 PM EDT) Repeat Cx - Recipient The request and specimen(s) for this test have been received and transported to the [facility] at [address] [place] [address]. The [facility] will report results directly to the client. 10/26/2024 4:49 PM EDT [facility] Whole Blood 10/26/2024 4:42 PM EDT 10/26/2024 4:49 PM EDT Narrative [facility] - 10/26/2024 4:49 PM EDT To be sent to [facility] for Donor UNOS#[id number] cross match with Blair Gilbert Sveta Judge MD LAB BLOOD ORDERABLES Final Resu lt Performing Organization Address [facility]/ZIP Co de Phone Number [facility] [address] * (ABNORMAL) Lactic Acid (10/26/2024 4:42 PM EDT) Lactate 0.3(L) 0.5 - 2.2 mmol/L 10/26/2024 5:19 PM EDT [facility] Plasma 10/26/2024 4:42 PM EDT 10/26/2024 4:47 PM EDT Kemar Sahni MD LAB BLOOD ORDERABLES Final Result [facility] [address] * Magnesium (10/26/2024 4:42 PM EDT) Magnesium 2.0 1.5 - 2.5 mg/dL 10/26/2024 5:24 PM EDT [facility] Plasma 10/26/2024 4:42 PM EDT 10/26/2024 4:47 PM EDT Kemar Sahni MD LAB BLOOD ORDERABLES Final Result Performing Organization Address [facility] Co de Phone Number [facility] [address] * (ABNORMAL) Hepatic Function Panel (10/26/2024 4:42 PM EDT) Total Bilirubin 2.3(H) 0.0 - 1.5 mg/dL 10/26/2024 5:24 PM EDT [facility] Bilirubin, Direct 1.85(H) 0.00 - 0.40 mg/dL 10/26/2024 5:24 PM EDT [facility] AST 374(H) 13 - 39 U/L 10/26/2024 5:24 PM EDT [facility] ALT 458(H) 7 - 52 U/L 10/26/2024 5:24 PM EDT [facility] Alkaline Phosphatase 39 36 - 125 U/L 10/26/2024 5:24 PM EDT [facility] Total Protein 3.8(L) 6.4 - 8.9 g/dL 10/26/2024 5:24 PM EDT [facility] Albumin 3.0(L) 3.5 - 5.7 g/dL 10/26/2024 5:24 PM EDT [facility] Bilirubin, Indirect 0.45 0.00 - 1.10 mg/dL 10/26/2024 5:24 PM EDT [facility] Plasma 10/26/2024 4:42 PM EDT 10/26/2024 4:47 PM EDT Kemar Sahni MD LAB BLOOD ORDERABLES Final Result Performing Organization Address [facility] Co de Phone Number [facility] [address] [facility] * (ABNORMAL) Protime-INR (10/26/2024 4:42 PM EDT) Protime 20.3(H) 12.1 - 15.1 seconds 10/26/2024 5:12 PM EDT [facility] INR 1.7(H) 0.9 - 1.1 10/26/2024 5:12 PM EDT [facility] Comment: RECOMMENDED THERAPEUTIC RANGES USING INR : Stable oral anticoagulant therapy: 2.0 - 3.0 Mechanical prosthetic heart valve: 2.5 - 3.5 Recurrent acute myocardial infarction: 2.5 - 3.5 Plasma 10/26/2024 4:42 PM EDT 10/26/2024 4:47 PM EDT Result [facility] Kemar Sahni MD LAB BLOOD ORDERABLES Final Result Performing Organization Address [facility] Co de Phone Number [facility] [address] [facility] * (ABNORMAL) CBC (10/26/2024 4:42 PM EDT) WBC 10.0 3.8 - 10.8 10E3/uL 10/26/2024 5:00 PM EDT [facility] RBC 3.44(L) 4.20 - 5.80 10E6/uL 10/26/2024 5:00 PM EDT [facility] Hemoglobin 10.5(L) 13.2 - 17.1 g/dL 10/26/2024 5:00 PM EDT [facility] Hematocrit 30.2(L) 38.5 - 50.0 % 10/26/2024 5:00 PM EDT [facility] MCV 87.7 80.0 - 100.0 fL 10/26/2024 5:00 PM EDT [facility] MCH 30.6 27.0 - 33.0 pg 10/26/2024 5:00 PM EDT [facility] MCHC 34.8 32.0 - 36.0 g/dL 10/26/2024 5:00 PM EDT [facility] RDW 20.1(H) 11.0 - 15.0 % 10/26/2024 5:00 PM EDT [facility] Platelets 48(L) 140 - 400 10E3/uL 10/26/2024 5:00 PM EDT [facility] Comment:Specimen checked for clots. None detected. MPV 7.9 7.5 - 11.5 fL 10/26/2024 5:00 PM EDT [facility] Whole Blood 10/26/2024 4:42 PM EDT 10/26/2024 4:47 PM EDT Kemar Sahni MD LAB BLOOD ORDERABLES Final Result [facility] [address] * (ABNORMAL) Renal Function Panel w/EGFR (10/26/2024 4:42 PM EDT) Sodium 142 133 - 146 mmol/L 10/26/2024 5:24 PM EDT [facility] Potassium 3.3(L) 3.5 - 5.3 mmol/L 10/26/2024 5:24 PM EDT [facility] Chloride 109 98 - 110 mmol/L 10/26/2024 5:24 PM EDT [facility] CO2 23 21 - 33 mmol/L 10/26/2024 5:24 PM EDT [facility] Anion Gap 10 3 - 16 mmol/L 10/26/2024 5:24 PM EDT [facility] BUN 63(H) 7 - 25 mg/dL 10/26/2024 5:24 PM EDT [facility] Creatinine 2.85(H) 0.60 - 1.30 mg/dL 10/26/2024 5:24 PM EDT [facility] Glucose 127(H) 70 - 100 mg/dL 10/26/2024 5:24 PM EDT [facility] Calcium 8.9 8.6 - 10.3 mg/dL 10/26/2024 5:24 PM EDT [facility] Phosphorus 4.4 2.1 - 4.7 mg/dL 10/26/2024 5:24 PM EDT [facility] Albumin 3.0(L) 3.5 - 5.7 g/dL 10/26/2024 5:24 PM EDT [facility] Osmolality, Calculated 314(H) 278 - 305 mOsm/kg 10/26/2024 5:24 PM EDT [facility] EGFR 28 10/26/2024 5:24 PM EDT [facility] Comment:As of 2021, the [...] Sahni MD LAB BLOOD ORDERABLES Final Result [facility] [address] [place], [place] [address] * (ABNORMAL) POC Glucose Monitoring Device (10/26/2024 3:54 PM EDT) POC Glucose Monitoring Device 126(H) 70 - 100 mg/dL 10/26/2024 3:55 PM EDT [facility] Blood 10/26/2024 3:54 PM EDT 10/26/2024 3:55 PM EDT Semaj Mcnair III, MD POINT OF CARE TEST ORDERABLES Final Result Performing Organization Address [facility]/ZIP Co de Phone Number [facility] [address] * (ABNORMAL) POC Glucose Monitoring Device (10/26/2024 3:06 PM EDT) POC Glucose Monitoring Device 144(H) 70 - 100 mg/dL 10/26/2024 3:14 PM EDT [facility] Blood 10/26/2024 3:06 PM EDT 10/26/2024 3:13 PM EDT Semaj Mcnair III, MD POINT OF CARE TEST ORDERABLES Final Result Performing Organization Address [facility] de Phone Number [facility] [address] * (ABNORMAL) TEG-Bypass/ECMO/Liver HN (Factor function, Platelet/Fibrin Clot Strength w/Clot Breakdown, Heparinase In All Channels) (10/26/2024 3:03 PM EDT) Citrated Kaolin Reaction Time (TEGECMOLIVER) 8.2 4.6 - 9.1 minutes 10/26/2024 4:43 PM EDT [facility] Citrated Kaolin W/Heparinase Reaction Time (TEGECMOLIVER) 8.2 4.3 - 8.3 minutes 10/26/2024 4:43 PM EDT [facility] Citrated Kaolin Maximum Amplitude (TEGECMOLIVER) 41.7(L) 52.0 - 69.0 mm 10/26/2024 4:43 PM EDT [facility] Citrated Functional Fibrinogen W/Heparinase Maximum Amplitude(TEGEC MOLIVER) 11.4(L) 15.0 - 34.0 mm 10/26/2024 4:43 PM EDT [facility] Citrated Rapid Teg W/Heparinase Maximum Amplitude (TEGECMOLIVER) 38.6(L) 53.0 - 69.0 mm 10/26/2024 4:43 PM EDT [facility] Citrated Kaolin w/Heparinase Percent Lysis (TEGECMOLIVER) 0.0 0.0 - 3.2 % 10/26/2024 4:43 PM EDT [facility] Whole Blood (Citrate) 10/26/2024 3:03 PM EDT 10/26/2024 3:10 PM EDT Jani Mooney MD LAB BLOOD ORDERABLES Final Resul t Performing Organization Address City/[facility] Co de Phone Number [facility] [address] * ECG 12 lead (MUSE) (10/26/2024 2:19 PM EDT) 10/26/2024 2:19 PM EDT Narrative MUSE - 10/27/2024 10:09 AM EDT Ventricular Rate: 105 BPM Atrial Rate: 105 BPM P-R Interval: 128 ms QRS Duration: 94 ms QT: 474 ms QTc: 626 ms R Bono: -37 degrees T Bono: 35 degrees Diagnosis Line: Critical Test Result: Long QTc ^ SINUS TACHYCARDIA ^ LEFT AXIS DEVIATION, LEFT ANTERIOR HEMIBLOCK ^ PROLONGED QT ^ ABNORMAL ECG ^ ^ Confirmed by MD HA, [facility] ([facility]) on 10/27/2024 10:09:25 AM Quinten Best MD ECG ORDERABLES Final Result MUSE * (ABNORMAL) POC Glucose Monitoring Device (10/26/2024 2:00 PM EDT) POC Glucose Monitoring Device 183(H) 70 - 100 mg/dL 10/26/2024 2:01 PM EDT [facility] Blood 10/26/2024 2:00 PM EDT 10/26/2024 2:01 PM EDT Semaj Mcnair III, MD POINT OF CARE TEST ORDERABLES Final Result Performing Organization Address [facility] Co de Phone Number [facility] [address] [facility] * (ABNORMAL) POC Glucose Monitoring Device (10/26/2024 1:05 PM EDT) POC Glucose Monitoring Device 212(H) 70 - 100 mg/dL 10/26/2024 1:06 PM EDT [facility] Blood 10/26/2024 1:05 PM EDT 10/26/2024 1:06 PM EDT us Semaj Mcnair III, MD POINT OF CARE TEST ORDERABLES Final Result Performing Organization Address [facility] Co de Phone Number [facility] [address] [facility] * Transfuse Cryoprecipitate Has consent been obtained? Yes; Transfusion Rate: Per dept routine (10/26/2024 12:25 PM EDT) Shay Sifuentes MD NURSING TREATMENT ORDERABLES - BLOOD ADMIN Final Result Performing Organization Address [facility] de Phone Number EXTERNAL * Transfuse Cryoprecipitate Has consent been obtained? Yes; Transfusion Rate: Per dept routine, 1 Units (10/26/2024 12:25 PM EDT) us Shay Sifuentes MD NURSING TREATMENT ORDERABLES - BLOOD ADMIN Final Result Performing Organization Address [facility] Co de Phone Number EXTERNAL * (ABNORMAL) POC Glucose Monitoring Device (10/26/2024 12:06 PM EDT) POC Glucose Monitoring Device 226(H) 70 - 100 mg/dL 10/26/2024 12:07 PM EDT [facility] Blood 10/26/2024 12:0 6 PM EDT 10/26/2024 12:07 PM EDT us Semaj Mcnair III, MD POINT OF CARE TEST ORDERABLES Final Result Performing Organization Address [facility] Co de Phone Number [facility] [address] * Transfuse Cryoprecipitate Transfusion Rate: Per dept routine (10/26/2024 12:01 PM EDT) John Pina MD NURSING TREATMENT ORDERABLES - BLOOD ADMIN Final Result Performing Organization Address [facility] de Phone Number EXTERNAL * Transfuse Cryoprecipitate Transfusion Rate: Per dept routine, 1 Units (10/26/2024 12:01 PM EDT) John Pina MD NURSING TREATMENT ORDERABLES - BLOOD ADMIN Final Result Performing Organization Address [facility] de Phone Number EXTERNAL * Lactic Acid (10/26/2024 10:48 AM EDT) Lactate 1.2 0.5 - 2.2 mmol/L 10/26/2024 11:27 AM EDT [facility] Plasma 10/26/2024 10:4 8 AM EDT 10/26/2024 10:53 AM EDT Kemar Sahni MD LAB BLOOD ORDERABLES Final Result Performing Organization Address [facility] Co de Phone Number [facility] [address] * Magnesium (10/26/2024 10:48 AM EDT) Magnesium 2.0 1.5 - 2.5 mg/dL 10/26/2024 11:26 AM EDT [facility] Plasma 10/26/2024 10:4 8 AM EDT 10/26/2024 10:53 AM EDT us Kemar Sahni MD LAB BLOOD ORDERABLES Final Result Performing Organization Address City/[facility] Co de Phone Number [facility] [address] * (ABNORMAL) Hepatic Function Panel (10/26/2024 10:48 AM EDT) Total Bilirubin 5.9(H) 0.0 - 1.5 mg/dL 10/26/2024 11:26 AM EDT [facility] Bilirubin, Direct 4.74(H) 0.00 - 0.40 mg/dL 10/26/2024 11:26 AM EDT [facility] AST 872(H) 13 - 39 U/L 10/26/2024 11:26 AM EDT [facility] ALT 736(H) 7 - 52 U/L 10/26/2024 11:26 AM EDT [facility] Alkaline Phosphatase 56 36 - 125 U/L 10/26/2024 11:26 AM EDT [facility] Total Protein 3.5(L) 6.4 - 8.9 g/dL 10/26/2024 11:26 AM EDT [facility] Albumin 2.5(L) 3.5 - 5.7 g/dL 10/26/2024 11:26 AM EDT [facility] Bilirubin, Indirect 1.16(H) 0.00 - 1.10 mg/dL 10/26/2024 11:26 AM EDT [facility] Plasma 10/26/2024 10:4 8 AM EDT 10/26/2024 10:53 AM EDT Kemar Sahni MD LAB BLOOD ORDERABLES Final Result Performing Organization Address City/State/[facility] Co de Phone Number [facility] [address] * (ABNORMAL) Protime-INR (10/26/2024 10:48 AM EDT) Protime 23.0(H) 12.1 - 15.1 seconds 10/26/2024 11:26 AM EDT [facility] INR 2.0(H) 0.9 - 1.1 10/26/2024 11:26 AM EDT [facility] Comment: RECOMMENDED THERAPEUTIC RANGES USING INR : Stable oral anticoagulant therapy: 2.0 - 3.0 Mechanical prosthetic heart valve: 2.5 - 3.5 Recurrent acute myocardial infarction: 2.5 - 3.5 Plasma 10/26/2024 10:4 8 AM EDT 10/26/2024 10:53 AM EDT Kemar Sahni MD LAB BLOOD ORDERABLES Final Result [facility] [address] [place] [address], [facility] * (ABNORMAL) CBC (10/26/2024 10:48 AM EDT) WBC 17.3(H) 3.8 - 10.8 10E3/uL 10/26/2024 11:14 AM EDT [facility] RBC 4.22 4.20 - 5.80 10E6/uL 10/26/2024 11:14 AM EDT [facility] Hemoglobin 12.8(L) 13.2 - 17.1 g/dL 10/26/2024 11:14 AM EDT [facility] [facility] Hematocrit 37.2(L) 38.5 - 50.0 % 10/26/2024 11:14 AM EDT [facility] MCV 88.3 80.0 - 100.0 fL 10/26/2024 11:14 AM EDT [facility] MCH 30.4 27.0 - 33.0 pg 10/26/2024 11:14 AM EDT [facility] MCHC 34.4 32.0 - 36.0 g/dL 10/26/2024 11:14 AM EDT [facility] RDW 20.8(H) 11.0 - 15.0 % 10/26/2024 11:14 AM EDT [facility] Platelets 109(L) 140 - 400 10E3/uL 10/26/2024 11:14 AM EDT [facility] MPV 7.5 7.5 - 11.5 fL 10/26/2024 11:14 AM EDT [facility] Whole Blood 10/26/2024 10:4 8 AM EDT 10/26/2024 10:53 AM EDT Kemar Sahni MD LAB BLOOD ORDERABLES Final Result [facility] [address] [place] [address], [facility] * (ABNORMAL) Blood gas, arterial (10/26/2024 10:48 AM EDT) O2 Sat, Arterial 97 10/26/2024 10:54 AM EDT [facility] FIO2 35% 10/26/2024 10:54 AM EDT [facility] pH, Arterial 7.37 7.35 - 7.45 10/26/2024 10:54 AM EDT [facility] pCO2, Arterial 36 35 - 45 mm Hg 10/26/2024 10:54 AM EDT [facility] pO2, Arterial 91 80 - 100 mm Hg 10/26/2024 10:54 AM EDT [facility] HCO3, Arterial 22 22 - 26 mmol/L 10/26/2024 10:54 AM EDT [facility] CO2 Content,Arteri al 22(L) 23 - 27 mmol/L 10/26/2024 10:54 AM EDT [facility] Base Excess, Arterial -3.9(L) -2.0 - 3.0 mmol/L 10/26/2024 10:54 AM EDT [facility] %HBO2, Arterial 94.8(L) 95.0 - 98.0 % 10/26/2024 10:54 AM EDT [facility] Carboxyhemoglo bin, Arterial 1.9 % 10/26/2024 10:54 AM EDT [facility] Comment: CARBOXYHEMOGLOBIN (CO) REFERENCE RANGES: Non-Smokers: <2 % Smokers: <8 % TOXIC: >20 % Methemoglobin, Arterial 0.7 0.0 - 1.5 % 10/26/2024 10:54 AM EDT [facility] Reduced hemoglobin, Arterial 2.5 0.0 - 5.0 % 10/26/2024 10:54 AM EDT [facility] Blood, Arterial 10/26/2024 1 0:48 AM EDT 10/26/2024 10:52 AM EDT us Shay Sifuentes MD LAB BLOOD ORDERABLES Final Resu lt [facility] [address] * (ABNORMAL) Renal Function Panel w/EGFR (10/26/2024 10:48 AM EDT) Sodium 139 133 - 146 mmol/L 10/26/2024 11:26 AM EDT [facility] Potassium 2.9(LL) 3.5 - 5.3 mmol/L 10/26/2024 11:26 AM EDT [facility] Comment:K CRITICAL VALUE WAS PREVIOUSLY CALLED Chloride 107 98 - 110 mmol/L 10/26/2024 11:26 AM EDT [facility] CO2 22 21 - 33 mmol/L 10/26/2024 11:26 AM EDT [facility] Anion Gap 10 3 - 16 mmol/L 10/26/2024 11:26 AM EDT [facility] BUN 61(H) 7 - 25 mg/dL 10/26/2024 11:26 AM EDT [facility] Creatinine 2.78(H) 0.60 - 1.30 mg/dL 10/26/2024 11:26 AM EDT [facility] Glucose 253(H) 70 - 100 mg/dL 10/26/2024 11:26 AM EDT [facility] Calcium 8.8 8.6 - 10.3 mg/dL 10/26/2024 11:26 AM EDT [facility] Phosphorus 4.1 2.1 - 4.7 mg/dL 10/26/2024 11:26 AM EDT [facility] Albumin 2.5(L) 3.5 - 5.7 g/dL 10/26/2024 11:26 AM EDT [facility] Osmolality, Calculated 314(H) 278 - 305 mOsm/kg 10/26/2024 11:26 AM EDT [facility] EGFR 28 10/26/2024 11:26 AM EDT [facility] Comment:As of 2021, the [...] BLOOD ORDERABLES Final Result Performing Organization Address City/[facility]/ZIP Co de Phone Number [facility] [address] [facility]. [address] * (ABNORMAL) POC Glucose Monitoring Device (10/26/2024 10:47 AM EDT) POC Glucose Monitoring Device 234(H) 70 - 100 mg/dL 10/26/2024 10:48 AM EDT [facility] Blood 10/26/2024 10:4 7 AM EDT 10/26/2024 10:48 AM EDT us Semaj Mcnair III, MD POINT OF CARE TEST ORDERABLES Final Result Performing Organization Address [facility]/ZIP Co de Phone Number [facility] [address] [facility]. [address] * CARISA Rhythm Strip - Scan (10/26/2024 10:45 AM EDT) us Scanning Uchhim SCAN DOCS - NO RESULTS Final Res ult * (ABNORMAL) POC Glucose Monitoring Device (10/26/2024 10:08 AM EDT) POC Glucose Monitoring Device 235(H) 70 - 100 mg/dL 10/26/2024 10:09 AM EDT [facility] Blood 10/26/2024 10:0 8 AM EDT 10/26/2024 10:09 AM EDT Semaj Mcnair III, MD POINT OF CARE TEST ORDERABLES Final Result Performing Organization Address City/[facility]/ZIP Co de Phone Number [facility] [address] [facility]. [address] * (ABNORMAL) POC Glucose Monitoring Device (10/26/2024 8:57 AM EDT) POC Glucose Monitoring Device 232(H) 70 - 100 mg/dL 10/26/2024 8:59 AM EDT [facility] Blood 10/26/2024 8:57 AM EDT 10/26/2024 8:58 AM EDT Semaj Mcnair III, MD POINT OF CARE TEST ORDERABLES Final Result Performing Organization Address [facility] Co de Phone Number [facility] [address] [facility]. [address] * ECG 12 lead (MUSE) (10/26/2024 8:16 AM EDT) 10/26/2024 8:16 AM EDT Narrative MUSE - 10/27/2024 10:09 AM EDT Ventricular Rate: 112 BPM QRS Duration: 96 ms QT: 452 ms QTc: 616 ms R Bono: -41 degrees T Bono: 40 degrees Diagnosis Line: Critical Test Result: Long QTc ^ SINUS TACHYCARDIA OCCASIONAL PREMATURE VENTRICULAR COMPLEXES ^ LEFT AXIS DEVIATION, LEFT ANTERIOR HEMIBLOCK ^ PROLONGED QT ^ ABNORMAL ECG ^ ^ Confirmed by MD HA, [facility] ([id number]) on 10/27/2024 10:09:18 AM Shay Sifuentes MD ECG ORDERABLES Final Result Performing Organization Address City/[facility]/ZIP Co de Phone Number MUSE * X-ray [...] - 100 mg/dL 10/26/2024 8:01 AM EDT [facility] Blood 10/26/2024 7:59 AM EDT 10/26/2024 8:00 AM EDT Semaj Mcnair III, MD POINT OF CARE TEST ORDERABLES Final Result [facility] [address] [place] [address], [facility] * (ABNORMAL) TEG-Bypass/ECMO/Liver HN (Factor function, Platelet/Fibrin Clot Strength w/Clot Breakdown, Heparinase In All Channels) (10/26/2024 7:59 AM EDT) Citrated Kaolin Reaction Time (TEGECMOLIVER) 8.2 4.6 - 9.1 minutes 10/26/2024 10:36 AM EDT [facility] Citrated Kaolin W/Heparinase Reaction Time (TEGECMOLIVER) 8.1 4.3 - 8.3 minutes 10/26/2024 10:36 AM EDT [facility] Citrated Kaolin Maximum Amplitude (TEGECMOLIVER) 46.8(L) 52.0 - 69.0 mm 10/26/2024 10:36 AM EDT [facility] Citrated Functional Fibrinogen W/Heparinase Maximum Amplitude(TEGEC MOLIVER) 10.5(L) 15.0 - 34.0 mm 10/26/2024 10:36 AM EDT [facility] Citrated Rapid Teg W/Heparinase Maximum Amplitude (TEGECMOLIVER) 45.5(L) 53.0 - 69.0 mm 10/26/2024 10:36 AM EDT [facility] Citrated Kaolin w/Heparinase Percent Lysis (TEGECMOLIVER) 0.0 0.0 - 3.2 % 10/26/2024 10:36 AM EDT [facility] Whole Blood (Citrate) 10/26/2024 7:59 AM EDT 10/26/2024 8:05 AM EDT us Shay Sifuentes MD LAB BLOOD ORDERABLES Final Resu lt [facility] [address] [place] [address], [facility] * (ABNORMAL) POC Glucose Monitoring Device (10/26/2024 6:12 AM EDT) POC Glucose Monitoring Device 196(H) 70 - 100 mg/dL 10/26/2024 6:13 AM EDT [facility] Blood 10/26/2024 6:12 AM EDT 10/26/2024 6:13 AM EDT Semaj Mcnair III, MD POINT OF CARE TEST ORDERABLES Final Result Performing Organization Address City/[facility]/ZIP Co de Phone Number [facility] [address] [place] [address]. [address] * Lactic Acid (10/26/2024 6:10 AM EDT) Lactate 1.2 0.5 - 2.2 mmol/L 10/26/2024 6:39 AM EDT [facility] Plasma 10/26/2024 6:10 AM EDT 10/26/2024 6:19 AM EDT Sveta Judge MD LAB BLOOD ORDERABLES Final Resu lt Performing Organization Address [facility] Co de Phone Number [facility] [address] [facility]. [address] * (ABNORMAL) Fibrinogen (10/26/2024 6:10 AM EDT) Fibrinogen 160(L) 218 - 406 mg/dL 10/26/2024 6:41 AM EDT [facility] Plasma 10/26/2024 6:10 AM EDT 10/26/2024 6:26 AM EDT Sveta Judge MD LAB BLOOD ORDERABLES Final Resu lt Performing Organization Address City/[facility]/ZIP Co de Phone Number [facility] [address] [facility] * (ABNORMAL) Protime-INR (10/26/2024 6:10 AM EDT) Protime 25.0(H) 12.1 - 15.1 seconds 10/26/2024 6:41 AM EDT [facility] INR 2.2(H) 0.9 - 1.1 10/26/2024 6:41 AM EDT [facility] Comment: RECOMMENDED THERAPEUTIC RANGES USING INR : Stable oral anticoagulant therapy: 2.0 - 3.0 Mechanical prosthetic heart valve: 2.5 - 3.5 Recurrent acute myocardial infarction: 2.5 - 3.5 Plasma 10/26/2024 6:10 AM EDT 10/26/2024 6:26 AM EDT us Sveta Judge MD LAB BLOOD ORDERABLES Final Resu lt [facility] [address] [place] [address], [facility] * (ABNORMAL) Blood gas, arterial (10/26/2024 6:10 AM EDT) O2 Sat, Arterial 98 10/26/2024 6:23 AM EDT [facility] FIO2 60 10/26/2024 6:23 AM EDT [facility] pH, Arterial 7.27(L) 7.35 - 7.45 10/26/2024 6:23 AM EDT [facility] pCO2, Arterial 47(H) 35 - 45 mm Hg 10/26/2024 6:23 AM EDT [facility] pO2, Arterial 127(H) 80 - 100 mm Hg 10/26/2024 6:23 AM EDT [facility] HCO3, Arterial 21(L) 22 - 26 mmol/L 10/26/2024 6:23 AM EDT [facility] CO2 Content,Arteri al 23 23 - 27 mmol/L 10/26/2024 6:23 AM EDT [facility] Base Excess, Arterial -5.4(L) -2.0 - 3.0 mmol/L 10/26/2024 6:23 AM EDT [facility] %HBO2, Arterial 94.6(L) 95.0 - 98.0 % 10/26/2024 6:23 AM EDT [facility] Carboxyhemoglo bin, Arterial 2.0 % 10/26/2024 6:23 AM EDT [facility] Comment: CARBOXYHEMOGLOBIN (CO) REFERENCE RANGES: Non-Smokers: <2 % Smokers: <8 % TOXIC: >20 % Methemoglobin, Arterial 1.6(H) 0.0 - 1.5 % 10/26/2024 6:23 AM EDT [facility] Reduced hemoglobin, Arterial 1.8 0.0 - 5.0 % 10/26/2024 6:23 AM EDT [facility] Blood, Arterial 10/26/2024 6 :10 AM EDT 10/26/2024 6:20 AM EDT Sveta Judge MD LAB BLOOD ORDERABLES Final Resu lt Performing Organization Address City/[facility]/ZIP Co de Phone Number [facility] [address] [facility] * Magnesium (10/26/2024 6:10 AM EDT) Magnesium 1.5 1.5 - 2.5 mg/dL 10/26/2024 7:09 AM EDT [facility] Plasma 10/26/2024 6:10 AM EDT 10/26/2024 6:23 AM EDT Sveta Judge MD LAB BLOOD ORDERABLES Final Resu lt Performing Organization Address [facility] Co de Phone Number [facility] [address] [facility] * (ABNORMAL) Hepatic Function Panel (10/26/2024 6:10 AM EDT) Total Bilirubin 6.2(H) 0.0 - 1.5 mg/dL 10/26/2024 7:11 AM EDT [facility] Bilirubin, Direct 5.26(H) 0.00 - 0.40 mg/dL 10/26/2024 7:11 AM EDT [facility] AST 1,071(H) 13 - 39 U/L 10/26/2024 7:11 AM EDT [facility] ALT 805(H) 7 - 52 U/L 10/26/2024 7:11 AM EDT [facility] Alkaline Phosphatase 55 36 - 125 U/L 10/26/2024 7:11 AM EDT [facility] Total Protein <3.0(L) 6.4 - 8.9 g/dL 10/26/2024 7:11 AM EDT [facility] Albumin 1.9(L) 3.5 - 5.7 g/dL 10/26/2024 7:11 AM EDT [facility] Bilirubin, Indirect 0.94 0.00 - 1.10 mg/dL 10/26/2024 7:11 AM EDT [facility] Plasma 10/26/2024 6:10 AM EDT 10/26/2024 6:23 AM EDT us Sveta Judge MD LAB BLOOD ORDERABLES Final Resu lt [facility] [address] [place] [address], [facility] * (ABNORMAL) Renal Function Panel w/EGFR (10/26/2024 6:10 AM EDT) Sodium 141 133 - 146 mmol/L 10/26/2024 7:09 AM EDT [facility] Potassium 2.8(LL) 3.5 - 5.3 mmol/L 10/26/2024 7:09 AM EDT [facility] Comment:Critical value previ ously called. Chloride 106 98 - 110 mmol/L 10/26/2024 7:09 AM EDT [facility] CO2 25 21 - 33 mmol/L 10/26/2024 7:09 AM EDT [facility] Anion Gap 10 3 - 16 mmol/L 10/26/2024 7:09 AM EDT [facility] BUN 57(H) 7 - 25 mg/dL 10/26/2024 7:09 AM EDT [facility] Creatinine 2.70(H) 0.60 - 1.30 mg/dL 10/26/2024 7:09 AM EDT [facility] Glucose 210(H) 70 - 100 mg/dL 10/26/2024 7:09 AM EDT [facility] Calcium 8.7 8.6 - 10.3 mg/dL 10/26/2024 7:09 AM EDT [facility] Phosphorus 5.4(H) 2.1 - 4.7 mg/dL 10/26/2024 7:09 AM EDT [facility] Albumin 1.9(L) 3.5 - 5.7 g/dL 10/26/2024 7:11 AM EDT [facility] Osmolality, Calculated 314(H) 278 - 305 mOsm/kg 10/26/2024 7:09 AM EDT [facility] EGFR 29 10/26/2024 7:09 AM EDT [facility] Comment:As of 2021, the [...] ORDERABLES Final Resu lt [facility] [address] [id number] * (ABNORMAL) CBC (10/26/2024 6:10 AM EDT) WBC 14.8(H) 3.8 - 10.8 10E3/uL 10/26/2024 6:46 AM EDT [facility] RBC 4.04(L) 4.20 - 5.80 10E6/uL 10/26/2024 6:46 AM EDT [facility] Hemoglobin 12.7(L) 13.2 - 17.1 g/dL 10/26/2024 6:46 AM EDT [facility] Hematocrit 35.9(L) 38.5 - 50.0 % 10/26/2024 6:46 AM EDT [facility] MCV 89.0 80.0 - 100.0 fL 10/26/2024 6:46 AM EDT [facility] MCH 31.3 27.0 - 33.0 pg 10/26/2024 6:46 AM EDT [facility] MCHC 35.2 32.0 - 36.0 g/dL 10/26/2024 6:46 AM EDT [facility] RDW 19.7(H) 11.0 - 15.0 % 10/26/2024 6:46 AM EDT [facility] Platelets 107(L) 140 - 400 10E3/uL 10/26/2024 6:46 AM EDT [facility] MPV 7.4(L) 7.5 - 11.5 fL 10/26/2024 6:46 AM EDT [facility] Whole Blood 10/26/2024 6:10 AM EDT 10/26/2024 6:26 AM EDT Sveta Judge MD LAB BLOOD ORDERABLES Final Resu lt [facility] [address] * (ABNORMAL) POC INR (10/26/2024 5:16 AM EDT) [facility] Signature Prothrombin Time INR, POC 2.4(H) 0.8 - 1.4 10/27/2024 6:51 AM EDT [facility] Comment: Test results may [...] OF CARE TEST ORDERABLES Final Result [facility] [address] * POC Sample Type (10/26/2024 5:14 AM EDT) POC Sample Type Arterial 10/26/2024 5:31 AM EDT [facility] Blood, Arterial 10/26/2024 5 :14 AM EDT 10/26/2024 5:31 AM EDT Semaj Mcnair III, MD POINT OF CARE TEST ORDERABLES Final Result Performing Organization Address City/[facility]/ZIP Co de Phone Number [facility] [address] * POC Anion Gap (10/26/2024 5:14 AM EDT) POC Anion Gap, Arterial 12 3 - 16 mmol/L 10/26/2024 5:31 AM EDT [facility] Blood, Arterial 10/26/2024 5 :14 AM EDT 10/26/2024 5:31 AM EDT us Semaj Mcnair III, MD POINT OF CARE TEST ORDERABLES Final Result Performing Organization Address City/[facility]/ZIP Co de Phone Number [facility] [address] * POC Chloride (10/26/2024 5:14 AM EDT) POC Chloride 104 98 - 110 mmol/L 10/26/2024 5:31 AM EDT [facility] Blood, Arterial 10/26/2024 5 :14 AM EDT 10/26/2024 5:31 AM EDT us Semaj Mcnair III, MD POINT OF CARE TEST ORDERABLES Final Result [facility] [address] * (ABNORMAL) POC Hemoglobin (10/26/2024 5:14 AM EDT) POC Hemoglobin 9.5(L) 14.0 - 18.0 g/dL 10/26/2024 5:31 AM EDT [facility] Blood, Arterial 10/26/2024 5 :14 AM EDT 10/26/2024 5:31 AM EDT us Semaj Mcnair III, MD POINT OF CARE TEST ORDERABLES Final Result Performing Organization Address City/[facility]/ZIP Co de Phone Number [facility] [address] [facility] * (ABNORMAL) POC hematocrit (10/26/2024 5:14 AM EDT) Pathologist [facility] POC Hematocrit 28.0(L) 40 - 52 % 10/26/2024 5:31 AM EDT [facility] Blood, Arterial 10/26/2024 5 :14 AM EDT 10/26/2024 5:31 AM EDT us Semaj Mcanir III, MD POINT OF CARE TEST ORDERABLES Final Result Performing Organization Address [facility] Co de Phone Number [facility] [address] [facility] * POC Lactate (10/26/2024 5:14 AM EDT) Pathologist [facility] POC Lactate 1.76 0.50 - 2.20 mmol/L 10/26/2024 5:31 AM EDT [facility] Blood, Arterial 10/26/2024 5 :14 AM EDT 10/26/2024 5:31 AM EDT us Semaj Mcnair III, MD POINT OF CARE TEST ORDERABLES Final Result Performing Organization Address City/[facility] Co de Phone Number [facility] [address] [facility] * (ABNORMAL) POC Glucose (10/26/2024 5:14 AM EDT) POC Glucose, Arterial 183(H) 70 - 100 mg/dL 10/26/2024 5:31 AM EDT [facility] Blood, Arterial 10/26/2024 5 :14 AM EDT 10/26/2024 5:31 AM EDT us Semaj Mcnair III, MD POINT OF CARE TEST ORDERABLES Final Result Performing Organization Address City/[facility] Co de Phone Number [facility] [address] [facility] * (ABNORMAL) POC Ionized Calcium (10/26/2024 5:14 AM EDT) Pathologist [facility] POC Ionized Calcium 5.50(H) 4.50 - 5.30 mg/dL 10/26/2024 5:31 AM EDT [facility] Blood, Arterial 10/26/2024 5 :14 AM EDT 10/26/2024 5:31 AM EDT us Semaj Mcnair III, MD POINT OF CARE TEST ORDERABLES Final Result Performing Organization Address [facility] de Phone Number [facility] [address] [facility] * (ABNORMAL) POC Potassium (10/26/2024 5:14 AM EDT) POC Potassium 2.8(LL) 3.5 - 5.3 mmol/L 10/26/2024 5:31 AM EDT [facility] Blood, Arterial 10/26/2024 5 :14 AM EDT 10/26/2024 5:31 AM EDT us Semaj Mcnair III, MD POINT OF CARE TEST ORDERABLES Final Result Performing Organization Address City/[facility] Co de Phone Number [facility] [address] [facility] * POC Sodium (10/26/2024 5:14 AM EDT) POC Sodium 138 136 - 146 mmol/L 10/26/2024 5:31 AM EDT [facility] Blood, Arterial 10/26/2024 5 :14 AM EDT 10/26/2024 5:31 AM EDT us Semaj Mcnair III, MD POINT OF CARE TEST ORDERABLES Final Result [facility] [address] [facility] * POC TCO2 (10/26/2024 5:14 AM EDT) POC TCO2, Arterial 23 23 - 27 mmol/L 10/26/2024 5:31 AM EDT [facility] Blood, Arterial 10/26/2024 5 :14 AM EDT 10/26/2024 5:31 AM EDT us Semaj Mcnair III, MD POINT OF CARE TEST ORDERABLES Final Result Performing Organization Address City/[facility] Co de Phone Number [facility] [address] [facility] * (ABNORMAL) POC O2 SAT (10/26/2024 5:14 AM EDT) POC O2 Saturation, Arterial 99(H) 95 - 98 % 10/26/2024 5:31 AM EDT [facility] Blood, Arterial 10/26/2024 5 :14 AM EDT 10/26/2024 5:31 AM EDT us Semaj Mcnair III, MD POINT OF CARE TEST ORDERABLES Final Result Performing Organization Address City/[facility] Co de Phone Number [facility] [address] [facility] * (ABNORMAL) POC Base Excess (10/26/2024 5:14 AM EDT) POC Base Excess, Arterial -5(L) -2 - 3 mmol/L 10/26/2024 5:31 AM EDT [facility] Blood, Arterial 10/26/2024 5 :14 AM EDT 10/26/2024 5:31 AM EDT us Semaj Mcnair III, MD POINT OF CARE TEST ORDERABLES Final Result Performing Organization Address City/[facility]/ZIP Co de Phone Number [facility] [address] [place] [address]. [address] * POC HCO3 (10/26/2024 5:14 AM EDT) POC HCO3, Arterial 22 22 - 26 mmol/L 10/26/2024 5:31 AM EDT [facility] Blood, Arterial 10/26/2024 5 :14 AM EDT 10/26/2024 5:31 AM EDT us Semaj Mcnair III, MD POINT OF CARE TEST ORDERABLES Final Result Performing Organization Address [facility] Co de Phone Number [facility] [address] [place] [address]. [address] * (ABNORMAL) POC PO2 (10/26/2024 5:14 AM EDT) POC pO2, Arterial 133(H) 80 - 100 mm Hg 10/26/2024 5:31 AM EDT [facility] Blood, Arterial 10/26/2024 5 :14 AM EDT 10/26/2024 5:31 AM EDT us Semaj Mcnair III, MD POINT OF CARE TEST ORDERABLES Final Result Performing Organization Address City/[facility] Co de Phone Number [facility] [address] [place] [address]. [address] * POC PCO2 (10/26/2024 5:14 AM EDT) POC pCO2, Arterial 45 35 - 45 mm Hg 10/26/2024 5:31 AM EDT [facility] Blood, Arterial 10/26/2024 5 :14 AM EDT 10/26/2024 5:31 AM EDT Semaj Mcnair III, MD POINT OF CARE TEST ORDERABLES Final Result Performing Organization Address [facility] Co de Phone Number [facility] [address] [facility]. [address] * (ABNORMAL) POC pH (10/26/2024 5:14 AM EDT) POC pH, Arterial 7.29(L) 7.35 - 7.45 10/26/2024 5:31 AM EDT [facility] Blood, Arterial 10/26/2024 5 :14 AM EDT 10/26/2024 5:31 AM EDT Semaj Mcnair III, MD POINT OF CARE TEST ORDERABLES Final Result Performing Organization Address [facility] Co de Phone Number [facility] [address] [facility]. [address] * Transfuse Cryoprecipitate (10/26/2024 4:37 AM EDT) Result [facility] Eber Quinones MD NURSING TREATMENT ORDERA BLES - BLOOD ADMIN Final Result * Transfuse Cryoprecipitate (10/26/2024 4:37 AM EDT) Result [facility] Eber Quinones MD NURSING TREATMENT ORDERA BLES - BLOOD ADMIN Final Result * (ABNORMAL) POC INR (10/26/2024 4:27 AM EDT) Prothrombin Time INR, POC 2.3(H) 0.8 - 1.4 10/27/2024 6:51 AM EDT [facility] Comment: Test results may [...] TEST ORDERABLES Final Result Performing Organization Address City/[facility] Co de Phone Number [facility] [address] [place] [address]. [address] * POC Sample Type (10/26/2024 4:24 AM EDT) POC Sample Type Arterial 10/26/2024 5:09 AM EDT [facility] Blood, Arterial 10/26/2024 4 :24 AM EDT 10/26/2024 5:09 AM EDT us Semaj Mcnair III, MD POINT OF CARE TEST ORDERABLES Final Result Performing Organization Address [facility] Co de Phone Number [facility] [address]. [address] * POC Anion Gap (10/26/2024 4:24 AM EDT) POC Anion Gap, Arterial 14 3 - 16 mmol/L 10/26/2024 5:09 AM EDT [facility] Blood, Arterial 10/26/2024 4 :24 AM EDT 10/26/2024 5:09 AM EDT Semaj Mcnair III, MD POINT OF CARE TEST ORDERABLES Final Result Performing Organization Address City/[facility] Co de Phone Number [facility] 318[facility] CampusSuccasunna [facility]. [address] * POC Chloride (10/26/2024 4:24 AM EDT) POC Chloride 103 98 - 110 mmol/L 10/26/2024 5:09 AM EDT [facility] Blood, Arterial 10/26/2024 4 :24 AM EDT 10/26/2024 5:09 AM EDT us Semaj Mcnair III, MD POINT OF CARE TEST ORDERABLES Final Result Performing Organization Address City/[facility]/ZIP Co de Phone Number [facility] [address] [facility] * (ABNORMAL) POC Hemoglobin (10/26/2024 4:24 AM EDT) POC Hemoglobin 10.3(L) 14.0 - 18.0 g/dL 10/26/2024 5:09 AM EDT [facility] Blood, Arterial 10/26/2024 4 :24 AM EDT 10/26/2024 5:09 AM EDT us Semaj Mcnair III, MD POINT OF CARE TEST ORDERABLES Final Result Performing Organization Address [facility] Co de Phone Number [facility] 318[facility] CampusSuccasun[facility]. [address] * (ABNORMAL) POC hematocrit (10/26/2024 4:24 AM EDT) POC Hematocrit 30.0(L) 40 - 52 % 10/26/2024 5:09 AM EDT [facility] Blood, Arterial 10/26/2024 4 :24 AM EDT 10/26/2024 5:09 AM EDT us Semaj Mcnair III, MD POINT OF CARE TEST ORDERABLES Final Result [facility] [address] [facility] * (ABNORMAL) POC Lactate (10/26/2024 4:24 AM EDT) POC Lactate 2.43(H) 0.50 - 2.20 mmol/L 10/26/2024 5:09 AM EDT [facility] Blood, Arterial 10/26/2024 4 :24 AM EDT 10/26/2024 5:09 AM EDT Semaj Mcnair III, MD POINT OF CARE TEST ORDERABLES Final Result Performing Organization Address City/[facility] Co de Phone Number [facility] [address] [facility] * (ABNORMAL) POC Glucose (10/26/2024 4:24 AM EDT) POC Glucose, Arterial 185(H) 70 - 100 mg/dL 10/26/2024 5:09 AM EDT [facility] Blood, Arterial 10/26/2024 4 :24 AM EDT 10/26/2024 5:09 AM EDT Semaj Mcnair III, MD POINT OF CARE TEST ORDERABLES Final Result Performing Organization Address [facility] Co de Phone Number [facility] [address] [place] [address]. [address] * POC Ionized Calcium (10/26/2024 4:24 AM EDT) POC Ionized Calcium 5.20 4.50 - 5.30 mg/dL 10/26/2024 5:09 AM EDT [facility] Blood, Arterial 10/26/2024 4 :24 AM EDT 10/26/2024 5:09 AM EDT Semaj Mcnair III, MD POINT OF CARE TEST ORDERABLES Final Result Performing Organization Address City/[facility] Co de Phone Number [facility] [address] [facility] * (ABNORMAL) POC Potassium (10/26/2024 4:24 AM EDT) POC Potassium 2.8(LL) 3.5 - 5.3 mmol/L 10/26/2024 5:09 AM EDT [facility] Blood, Arterial 10/26/2024 4 :24 AM EDT 10/26/2024 5:09 AM EDT us Semaj Mcnair III, MD POINT OF CARE TEST ORDERABLES Final Result Performing Organization Address City/[facility] Co de Phone Number [facility] [address] [facility]. [address] * POC Sodium (10/26/2024 4:24 AM EDT) POC Sodium 139 136 - 146 mmol/L 10/26/2024 5:09 AM EDT [facility] Blood, Arterial 10/26/2024 4 :24 AM EDT 10/26/2024 5:09 AM EDT us Semaj Mcnair III, MD POINT OF CARE TEST ORDERABLES Final Result Performing Organization Address [facility] Co de Phone Number [facility] [address] [place] [address]. [address] * POC TCO2 (10/26/2024 4:24 AM EDT) POC TCO2, Arterial 23 23 - 27 mmol/L 10/26/2024 5:09 AM EDT [facility] Blood, Arterial 10/26/2024 4 :24 AM EDT 10/26/2024 5:09 AM EDT us Semaj Mcnair III, MD POINT OF CARE TEST ORDERABLES Final Result Performing Organization Address City/[facility] Co de Phone Number [address] * POC O2 SAT (10/26/2024 4:24 AM EDT) POC O2 Saturation, Arterial 96 95 - 98 % 10/26/2024 5:09 AM EDT [facility] Blood, Arterial 10/26/2024 4 :24 AM EDT 10/26/2024 5:09 AM EDT us Semaj Mcnair III, MD POINT OF CARE TEST ORDERABLES Final Result Performing Organization Address City/[facility]/ZIP Co de Phone Number [facility] [address] * (ABNORMAL) POC Base Excess (10/26/2024 4:24 AM EDT) POC Base Excess, Arterial -5(L) -2 - 3 mmol/L 10/26/2024 5:09 AM EDT [facility] Blood, Arterial 10/26/2024 4 :24 AM EDT 10/26/2024 5:09 AM EDT us Semaj Mcnair III, MD POINT OF CARE TEST ORDERABLES Final Result Performing Organization Address [facility] Co de Phone Number [facility] [address] * POC HCO3 (10/26/2024 4:24 AM EDT) POC HCO3, Arterial 22 22 - 26 mmol/L 10/26/2024 5:09 AM EDT [facility] Blood, Arterial 10/26/2024 4 :24 AM EDT 10/26/2024 5:09 AM EDT us Semaj Mcnair III, MD POINT OF CARE TEST ORDERABLES Final Result Performing Organization Address City/[facility]/ZIP Co de Phone Number [facility] [address] [facility] * POC PO2 (10/26/2024 4:24 AM EDT) POC pO2, Arterial 93 80 - 100 mm Hg 10/26/2024 5:09 AM EDT [facility] Blood, Arterial 10/26/2024 4 :24 AM EDT 10/26/2024 5:09 AM EDT us Semaj Mcnair III, MD POINT OF CARE TEST ORDERABLES Final Result [facility] [address] * POC PCO2 (10/26/2024 4:24 AM EDT) POC pCO2, Arterial 44 35 - 45 mm Hg 10/26/2024 5:09 AM EDT [facility] Blood, Arterial 10/26/2024 4 :24 AM EDT 10/26/2024 5:09 AM EDT Semaj Mcnair III, MD POINT OF CARE TEST ORDERABLES Final Result Performing Organization Address [facility] Co de Phone Number [facility] [address] [facility] * (ABNORMAL) POC pH (10/26/2024 4:24 AM EDT) POC pH, Arterial 7.30(L) 7.35 - 7.45 10/26/2024 5:09 AM EDT [facility] Blood, Arterial 10/26/2024 4 :24 AM EDT 10/26/2024 5:09 AM EDT Semaj Mcnair III, MD POINT OF CARE TEST ORDERABLES Final Result Performing Organization Address [facility] Co de Phone Number [facility] [address] [facility] * Transfuse Platelets (10/26/2024 4:14 AM EDT) Ben Blake MD NURSING TREATMENT ORDERABLES - BLOOD ADMIN Final Result * Transfuse Fresh Frozen Plasma (10/26/2024 3:47 AM EDT) Ben Blake MD NURSING TREATMENT ORDERABLES - BLOOD ADMIN Final Result * (ABNORMAL) POC INR (10/26/2024 3:34 AM EDT) Prothrombin Time INR, POC 2.8(H) 0.8 - 1.4 10/27/2024 6:51 AM EDT [facility] Comment: Test results may [...] OF CARE TEST ORDERABLES Final Result [facility] [address] * POC Sample Type (10/26/2024 3:31 AM EDT) POC Sample Type Arterial 10/26/2024 4:11 AM EDT [facility] Blood, Arterial 10/26/2024 3 :31 AM EDT 10/26/2024 4:11 AM EDT us Semaj Mcnair III, MD POINT OF CARE TEST ORDERABLES Final Result Performing Organization Address [facility] Co de Phone Number [facility] [address] [facility] * POC Anion Gap (10/26/2024 3:31 AM EDT) POC Anion Gap, Arterial 15 3 - 16 mmol/L 10/26/2024 4:11 AM EDT [facility] Blood, Arterial 10/26/2024 3 :31 AM EDT 10/26/2024 4:11 AM EDT us Semaj Mcnair III, MD POINT OF CARE TEST ORDERABLES Final Result [facility] [address] * POC Chloride (10/26/2024 3:31 AM EDT) POC Chloride 105 98 - 110 mmol/L 10/26/2024 4:11 AM EDT [facility] Blood, Arterial 10/26/2024 3 :31 AM EDT 10/26/2024 4:11 AM EDT us Semaj Mcnair III, MD POINT OF CARE TEST ORDERABLES Final Result Performing Organization Address City/[facility]/ZIP Co de Phone Number [facility] [address] [facility]. [address] * (ABNORMAL) POC Hemoglobin (10/26/2024 3:31 AM EDT) POC Hemoglobin 9.7(L) 14.0 - 18.0 g/dL 10/26/2024 4:11 AM EDT [facility] Blood, Arterial 10/26/2024 3 :31 AM EDT 10/26/2024 4:11 AM EDT us Semaj Mcnair III, MD POINT OF CARE TEST ORDERABLES Final Result Performing Organization Address [facility] Co de Phone Number [facility] [address] [address]cc[address] * (ABNORMAL) POC hematocrit (10/26/2024 3:31 AM EDT) POC Hematocrit 29.0(L) 40 - 52 % 10/26/2024 4:11 AM EDT [facility] Blood, Arterial 10/26/2024 3 :31 AM EDT 10/26/2024 4:11 AM EDT us Semaj Mcnair III, MD POINT OF CARE TEST ORDERABLES Final Result Performing Organization Address City/[facility] Co de Phone Number [facility] [address] [facility] * (ABNORMAL) POC Lactate (10/26/2024 3:31 AM EDT) POC Lactate 3.54(H) 0.50 - 2.20 mmol/L 10/26/2024 4:11 AM EDT [facility] Blood, Arterial 10/26/2024 3 :31 AM EDT 10/26/2024 4:11 AM EDT us Semaj Mcnair III, MD POINT OF CARE TEST ORDERABLES Final Result Performing Organization Address City/[facility] Co de Phone Number [facility] [address] [place] [address]. [address] * (ABNORMAL) POC Glucose (10/26/2024 3:31 AM EDT) POC Glucose, Arterial 153(H) 70 - 100 mg/dL 10/26/2024 4:11 AM EDT [facility] Blood, Arterial 10/26/2024 3 :31 AM EDT 10/26/2024 4:11 AM EDT us Semaj Mcnair III, MD POINT OF CARE TEST ORDERABLES Final Result Performing Organization Address [facility] Co de Phone Number [facility] [address] [place] [address]. [address] * POC Ionized Calcium (10/26/2024 3:31 AM EDT) POC Ionized Calcium 5.10 4.50 - 5.30 mg/dL 10/26/2024 4:11 AM EDT [facility] Blood, Arterial 10/26/2024 3 :31 AM EDT 10/26/2024 4:11 AM EDT us Semaj Mcnair III, MD POINT OF CARE TEST ORDERABLES Final Result Performing Organization Address [facility] Co de Phone Number [facility] [address] [place] [address]. [address] * (ABNORMAL) POC Potassium (10/26/2024 3:31 AM EDT) POC Potassium 2.6(LL) 3.5 - 5.3 mmol/L 10/26/2024 4:11 AM EDT [facility] Blood, Arterial 10/26/2024 3 :31 AM EDT 10/26/2024 4:11 AM EDT us Semaj Mcnair III, MD POINT OF CARE TEST ORDERABLES Final Result Performing Organization Address City/[facility]/ZIP Co de Phone Number [facility] [address] [facility] * POC Sodium (10/26/2024 3:31 AM EDT) POC Sodium 138 136 - 146 mmol/L 10/26/2024 4:11 AM EDT [facility] Blood, Arterial 10/26/2024 3 :31 AM EDT 10/26/2024 4:11 AM EDT us Semaj Mcnair III, MD POINT OF CARE TEST ORDERABLES Final Result Performing Organization Address [facility] Co de Phone Number [facility] [address] [facility] * (ABNORMAL) POC TCO2 (10/26/2024 3:31 AM EDT) POC TCO2, Arterial 19(L) 23 - 27 mmol/L 10/26/2024 4:11 AM EDT [facility] Blood, Arterial 10/26/2024 3:31 AM EDT 10/26/2024 4:11 AM EDT us Semaj Mcnair III, MD POINT OF CARE TEST ORDERABLES Final Result Performing Organization Address City/[facility] Co de Phone Number [facility] [address] [facility] * POC O2 SAT (10/26/2024 3:31 AM EDT) POC O2 Saturation, Arterial 97 95 - 98 % 10/26/2024 4:11 AM EDT [facility] Blood, Arterial 10/26/2024 3 :31 AM EDT 10/26/2024 4:11 AM EDT us Semaj Mcnair III, MD POINT OF CARE TEST ORDERABLES Final Result Performing Organization Address City/[facility] Co de Phone Number [facility] [address] [facility]. [address] * (ABNORMAL) POC Base Excess (10/26/2024 3:31 AM EDT) POC Base Excess, Arterial -9(L) -2 - 3 mmol/L 10/26/2024 4:11 AM EDT [facility] Blood, Arterial 10/26/2024 3 :31 AM EDT 10/26/2024 4:11 AM EDT us Semaj Mcnair III, MD POINT OF CARE TEST ORDERABLES Final Result Performing Organization Address [facility] Co de Phone Number [facility] [address] * (ABNORMAL) POC HCO3 (10/26/2024 3:31 AM EDT) POC HCO3, Arterial 18(L) 22 - 26 mmol/L 10/26/2024 4:11 AM EDT [facility] Blood, Arterial 10/26/2024 3 :31 AM EDT 10/26/2024 4:11 AM EDT us Semaj Mcnair III, MD POINT OF CARE TEST ORDERABLES Final Result Performing Organization Address City/[facility] Co de Phone Number [facility] [address] [facility] * (ABNORMAL) POC PO2 (10/26/2024 3:31 AM EDT) POC pO2, Arterial 104(H) 80 - 100 mm Hg 10/26/2024 4:11 AM EDT [facility] Blood, Arterial 10/26/2024 3 :31 AM EDT 10/26/2024 4:11 AM EDT us Semaj Mcnair III, MD POINT OF CARE TEST ORDERABLES Final Result Performing Organization Address [facility] Co de Phone Number [facility] [address] [facility]. [address] * POC PCO2 (10/26/2024 3:31 AM EDT) POC pCO2, Arterial 42 35 - 45 mm Hg 10/26/2024 4:11 AM EDT [facility] Blood, Arterial 10/26/2024 3 :31 AM EDT 10/26/2024 4:11 AM EDT us Semaj Mcnair III, MD POINT OF CARE TEST ORDERABLES Final Result Performing Organization Address [facility] Co de Phone Number [facility] [address] [facility] * (ABNORMAL) POC pH (10/26/2024 3:31 AM EDT) POC pH, Arterial 7.24(L) 7.35 - 7.45 10/26/2024 4:11 AM EDT [facility] Blood, Arterial 10/26/2024 3 :31 AM EDT 10/26/2024 4:11 AM EDT us Semaj Mcnair III, MD POINT OF CARE TEST ORDERABLES Final Result Performing Organization Address [facility] Co de Phone Number [facility] [address] * (ABNORMAL) TEG-Global With Lysis (Baseline TEG with LY30, Will NOT Show Heparin Effect) (53:31 AM EDT) Citrated Kaolin Reaction Time (TEGLYSIS) 6.8 4.6 - 9.1 minutes 10/26/2024 5:02 AM EDT [facility] Citrated Rapid Teg Maximum Amplitude (TEGLYSIS) <40.0(L) 52.0 - 70.0 mm 10/26/2024 5:02 AM EDT [facility] Citrated Functional Fibrinogen Maximum Amplitude (TEGLYSIS) <4.0(L) 15.0 - 32.0 mm 10/26/2024 5:02 AM EDT [facility] Citrated Kaolin Percent Lysis (TEGLYSIS) 1.4 0.0 - 2.6 % 10/26/2024 5:02 AM EDT [facility] Whole Blood (Citrate) 10/26/2024 3:31 AM EDT 10/26/2024 3:40 AM EDT us Eber Quinones MD LAB BLOOD ORDERABLES Fin al Result Performing Organization Address City/State/[facility] Co de Phone Number [facility] [address] * (ABNORMAL) CBC (10/26/2024 3:31 AM EDT) WBC 9.5 3.8 - 10.8 10E3/uL 10/26/2024 3:48 AM EDT [facility] RBC 3.68(L) 4.20 - 5.80 10E6/uL 10/26/2024 3:48 AM EDT [facility] Hemoglobin 11.5(L) 13.2 - 17.1 g/dL 10/26/2024 3:48 AM EDT [facility] Hematocrit 33.0(L) 38.5 - 50.0 % 10/26/2024 3:48 AM EDT [facility] MCV 89.6 80.0 - 100.0 fL 10/26/2024 3:48 AM EDT [facility] MCH 31.1 27.0 - 33.0 pg 10/26/2024 3:48 AM EDT [facility] MCHC 34.8 32.0 - 36.0 g/dL 10/26/2024 3:48 AM EDT [facility] RDW 19.3(H) 11.0 - 15.0 % 10/26/2024 3:48 AM EDT [facility] Platelets 67(L) 140 - 400 10E3/uL 10/26/2024 3:48 AM EDT [facility] MPV 7.9 7.5 - 11.5 fL 10/26/2024 3:48 AM EDT [facility] Whole Blood 10/26/2024 3:31 AM EDT 10/26/2024 3:40 AM EDT Result [facility] Eber Quinones MD LAB BLOOD ORDERABLES Fin al Result Performing Organization Address [facility] de Phone Number [facility] [address] [facility]. [address] * (ABNORMAL) Protime-INR (10/26/2024 3:31 AM EDT) Protime 27.0(H) 12.1 - 15.1 seconds 10/26/2024 3:51 AM EDT [facility] INR 2.4(H) 0.9 - 1.1 10/26/2024 3:51 AM EDT [facility] Comment: RECOMMENDED THERAPEUTIC RANGES USING INR : Stable oral anticoagulant therapy: 2.0 - 3.0 Mechanical prosthetic heart valve: 2.5 - 3.5 Recurrent acute myocardial infarction: 2.5 - 3.5 Plasma 10/26/2024 3:31 AM EDT 10/26/2024 3:40 AM EDT Result [facility] Eber Quinones MD LAB BLOOD ORDERABLES Fin al Result Performing Organization Address [facility] Co de Phone Number [facility] [address] [facility] * (ABNORMAL) Fibrinogen (10/26/2024 3:31 AM EDT) Fibrinogen 104(L) 218 - 406 mg/dL 10/26/2024 3:56 AM EDT [facility] Plasma 10/26/2024 3:31 AM EDT 10/26/2024 3:40 AM EDT Result [facility] Eber Quinones MD LAB BLOOD ORDERABLES Fin al Result [facility] [address] [id number], [facility] * Transfuse Fresh Frozen Plasma (10/26/2024 3:16 AM EDT) us Ben Blake MD NURSING TREATMENT ORDERABLES - BLOOD ADMIN Final Result * Transfuse Fresh Frozen Plasma (10/26/2024 3:15 AM EDT) Result [facility] Ben Blake MD NURSING TREATMENT ORDERABLES - BLOOD ADMIN Final Result * Transfuse RBC (10/26/2024 3:14 AM EDT) Result [facility] us Ben Blake MD NURSING TREATMENT ORDERABLES - BLOOD ADMIN Final Result * Transfuse RBC (10/26/2024 3:14 AM EDT) Result Tiburcio Blake MD NURSING TREATMENT ORDERABLES - BLOOD ADMIN Final Result * Transfuse RBC (10/26/2024 2:40 AM EDT) Result [facility] us Ben Blake MD NURSING TREATMENT [...] Transfuse RBC (10/26/2024 1:45 AM EDT) Result [facility] us Ben Blake MD NURSING TREATMENT ORDERABLES - BLOOD ADMIN Final Result * (ABNORMAL) POC INR (10/26/2024 1:43 AM EDT) Prothrombin Time INR, POC 1.9(H) 0.8 - 1.4 10/27/2024 6:51 AM EDT [facility] Comment: Test results may [...] TEST ORDERABLES Final Result Performing Organization Address [facility] Co de Phone Number [facility] [address] [facility]. [address] * Transfuse Fresh Frozen Plasma (10/26/2024 1:41 AM EDT) Ben Blake MD NURSING TREATMENT ORDERABLES - BLOOD ADMIN Final Result * Transfuse RBC (10/26/2024 1:40 AM EDT) Result [facility] Ben Blake MD NURSING TREATMENT ORDERABLES - BLOOD ADMIN Final Result * POC Sample Type (10/26/2024 1:40 AM EDT) Pathologist [facility] POC Sample Type Arterial 10/26/2024 2:32 AM EDT [facility] Blood, Arterial 10/26/2024 1 :40 AM EDT 10/26/2024 2:32 AM EDT Semaj Mcnair III, MD POINT OF CARE TEST ORDERABLES Final Result Performing Organization Address City/[facility] Co de Phone Number [facility] [address] * POC Anion Gap (10/26/2024 1:40 AM EDT) POC Anion Gap, Arterial 13 3 - 16 mmol/L 10/26/2024 2:32 AM EDT [facility] Blood, Arterial 10/26/2024 1 :40 AM EDT 10/26/2024 2:32 AM EDT us Semaj Mcnair III, MD POINT OF CARE TEST ORDERABLES Final Result Performing Organization Address City/[facility] Co de Phone Number [facility] [address] [place] [address]. [address] * POC Chloride (10/26/2024 1:40 AM EDT) Pathologist [facility] POC Chloride 104 98 - 110 mmol/L 10/26/2024 2:32 AM EDT [facility] Blood, Arterial 10/26/2024 1 :40 AM EDT 10/26/2024 2:32 AM EDT us Semaj Mcnair III, MD POINT OF CARE TEST ORDERABLES Final Result Performing Organization Address [facility] de Phone Number [facility] [address] [place] [address]. [address] * (ABNORMAL) POC Hemoglobin (10/26/2024 1:40 AM EDT) [facility] POC Hemoglobin 7.4(L) 14.0 - 18.0 g/dL 10/26/2024 2:32 AM EDT [facility] Blood, Arterial 10/26/2024 1 :40 AM EDT 10/26/2024 2:32 AM EDT us Semaj Mcnair III, MD POINT OF CARE TEST ORDERABLES Final Result Performing Organization Address [facility] de Phone Number [facility] [address] [place] [address]. [address] * (ABNORMAL) POC hematocrit (10/26/2024 1:40 AM EDT) [facility] POC Hematocrit 22.0(L) 40 - 52 % 10/26/2024 2:32 AM EDT [facility] Blood, Arterial 10/26/2024 1 :40 AM EDT 10/26/2024 2:32 AM EDT us Semaj Mcnair III, MD POINT OF CARE TEST ORDERABLES Final Result Performing Organization Address City/[facility]/ZIP Co de Phone Number [facility] [address] [place] [address]. [address] * (ABNORMAL) POC Lactate (10/26/2024 1:40 AM EDT) POC Lactate 2.30(H) 0.50 - 2.20 mmol/L 10/26/2024 2:32 AM EDT [facility] Blood, Arterial 10/26/2024 1 :40 AM EDT 10/26/2024 2:32 AM EDT us Semaj Mcnair III, MD POINT OF CARE TEST ORDERABLES Final Result Performing Organization Address [facility] Co de Phone Number [facility] [address] [place] [address]. [address] * (ABNORMAL) POC Glucose (10/26/2024 1:40 AM EDT) POC Glucose, Arterial 116(H) 70 - 100 mg/dL 10/26/2024 2:32 AM EDT [facility] Blood, Arterial 10/26/2024 1 :40 AM EDT 10/26/2024 2:32 AM EDT us Semaj Mcnair III, MD POINT OF CARE TEST ORDERABLES Final Result Performing Organization Address City/[facility] Co de Phone Number [facility] [address] [place] [address]. [address] * (ABNORMAL) POC Ionized Calcium (10/26/2024 1:40 AM EDT) POC Ionized Calcium 4.10(L) 4.50 - 5.30 mg/dL 10/26/2024 2:32 AM EDT [facility] Blood, Arterial 10/26/2024 1 :40 AM EDT 10/26/2024 2:32 AM EDT us Semaj Mcnair III, MD POINT OF CARE TEST ORDERABLES Final Result Performing Organization Address City/[facility]/ZIP Co de Phone Number [facility] [facility] [address] [facility]. [address] * (ABNORMAL) POC Potassium (10/26/2024 1:40 AM EDT) POC Potassium 2.6(LL) 3.5 - 5.3 mmol/L 10/26/2024 2:32 AM EDT [facility] Blood, Arterial 10/26/2024 1 :40 AM EDT 10/26/2024 2:32 AM EDT us Semaj Mcnair III, MD POINT OF CARE TEST ORDERABLES Final Result Performing Organization Address [facility] Co de Phone Number [facility] [address] [facility]. [address] * (ABNORMAL) POC Sodium (10/26/2024 1:40 AM EDT) POC Sodium 135(L) 136 - 146 mmol/L 10/26/2024 2:32 AM EDT [facility] Blood, Arterial 10/26/2024 1 :40 AM EDT 10/26/2024 2:32 AM EDT us Semaj Mcnair III, MD POINT OF CARE TEST ORDERABLES Final Result Performing Organization Address City/[facility] Co de Phone Number [facility] [address] [facility] * (ABNORMAL) POC TCO2 (10/26/2024 1:40 AM EDT) POC TCO2, Arterial 19(L) 23 - 27 mmol/L 10/26/2024 2:32 AM EDT [facility] Blood, Arterial 10/26/2024 1 :40 AM EDT 10/26/2024 2:32 AM EDT Semaj Mcnair III, MD POINT OF CARE TEST ORDERABLES Final Result [facility] [address] [facility]. [address] * (ABNORMAL) POC O2 SAT (10/26/2024 1:40 AM EDT) POC O2 Saturation, Arterial 99(H) 95 - 98 % 10/26/2024 2:32 AM EDT [facility] Blood, Arterial 10/26/2024 1 :40 AM EDT 10/26/2024 2:32 AM EDT Semaj Mcnair III, MD POINT OF CARE TEST ORDERABLES Final Result Performing Organization Address [facility] Co de Phone Number [facility] [address] [facility] * (ABNORMAL) POC Base Excess (10/26/2024 1:40 AM EDT) POC Base Excess, Arterial -7(L) -2 - 3 mmol/L 10/26/2024 2:32 AM EDT [facility] Blood, Arterial 10/26/2024 1 :40 AM EDT 10/26/2024 2:32 AM EDT Semaj Mcnair III, MD POINT OF CARE TEST ORDERABLES Final Result [facility] [address] [facility] * (ABNORMAL) POC HCO3 (10/26/2024 1:40 AM EDT) POC HCO3, Arterial 18(L) 22 - 26 mmol/L 10/26/2024 2:32 AM EDT [facility] Blood, Arterial 10/26/2024 1 :40 AM EDT 10/26/2024 2:32 AM EDT us Semaj Mcnair III, MD POINT OF CARE TEST ORDERABLES Final Result Performing Organization Address City/[facility]/ZIP Co de Phone Number [facility] [address] [facility]. [address] * (ABNORMAL) POC PO2 (10/26/2024 1:40 AM EDT) POC pO2, Arterial 145(H) 80 - 100 mm Hg 10/26/2024 2:32 AM EDT [facility] Blood, Arterial 10/26/2024 1 :40 AM EDT 10/26/2024 2:32 AM EDT us Semaj Mcnair III, MD POINT OF CARE TEST ORDERABLES Final Result Performing Organization Address [facility] Co de Phone Number [facility] [address] [facility] * (ABNORMAL) POC PCO2 (10/26/2024 1:40 AM EDT) POC pCO2, Arterial 33(L) 35 - 45 mm Hg 10/26/2024 2:32 AM EDT [facility] Blood, Arterial 10/26/2024 1 :40 AM EDT 10/26/2024 2:32 AM EDT us Semaj Mcnair III, MD POINT OF CARE TEST ORDERABLES Final Result Performing Organization Address City/[facility] Co de Phone Number [facility] [address] [facility]. [address] * POC pH (10/26/2024 1:40 AM EDT) POC pH, Arterial 7.35 7.35 - 7.45 10/26/2024 2:32 AM EDT [facility] Blood, Arterial 10/26/2024 1 :40 AM EDT 10/26/2024 2:32 AM EDT Semaj Mcnair III, MD POINT OF CARE TEST ORDERABLES Final Result Performing Organization Address [facility] Co de Phone Number [facility] [address] [facility]. [address] * Transfuse Fresh Frozen Plasma (10/26/2024 1:20 AM EDT) Result [facility] Ben Blake MD NURSING TREATMENT ORDERABLES - BLOOD ADMIN Final Result * Transfuse RBC (10/26/2024 12:56 AM EDT) Result [facility] Ben Blake MD NURSING TREATMENT ORDERABLES - BLOOD ADMIN Final Result * (ABNORMAL) POC INR (10/26/2024 12:41 AM EDT) Prothrombin Time INR, POC 2.0(H) 0.8 - 1.4 10/27/2024 6:51 AM EDT [facility] Comment: Test results may [...] TEST ORDERABLES Final Result Performing Organization Address City/[facility]/ZIP Co de Phone Number [facility] [address] [facility]. [address] * POC Sample Type (10/26/2024 12:39 AM EDT) POC Sample Type Arterial 10/26/2024 1:38 AM EDT [facility] Blood, Arterial 10/26/2024 1 2:39 AM EDT 10/26/2024 1:38 AM EDT us Semaj Mcnair III, MD POINT OF CARE TEST ORDERABLES Final Result Performing Organization Address City/[facility] Co de Phone Number [facility] [address] * POC Anion Gap (10/26/2024 12:39 AM EDT) POC Anion Gap, Arterial 13 3 - 16 mmol/L 10/26/2024 1:38 AM EDT [facility] Blood, Arterial 10/26/2024 1 2:39 AM EDT 10/26/2024 1:38 AM EDT us Semaj Mcnair III, MD POINT OF CARE TEST ORDERABLES Final Result Performing Organization Address [facility] Co de Phone Number [facility] [address] [facility]. [address] * POC Chloride (10/26/2024 12:39 AM EDT) POC Chloride 103 98 - 110 mmol/L 10/26/2024 1:38 AM EDT [facility] Blood, Arterial 10/26/2024 1 2:39 AM EDT 10/26/2024 1:38 AM EDT us Semaj Mcnair III, MD POINT OF CARE TEST ORDERABLES Final Result Performing Organization Address [facility] Co de Phone Number [facility] [address]. [address] * (ABNORMAL) POC Hemoglobin (10/26/2024 12:39 AM EDT) POC Hemoglobin 7.9(L) 14.0 - 18.0 g/dL 10/26/2024 1:38 AM EDT [facility] Blood, Arterial 10/26/2024 1 2:39 AM EDT 10/26/2024 1:38 AM EDT us Semaj Mcnair III, MD POINT OF CARE TEST ORDERABLES Final Result [facility] [address] [facility]. [address] * (ABNORMAL) POC hematocrit (10/26/2024 12:39 AM EDT) POC Hematocrit 23.0(L) 40 - 52 % 10/26/2024 1:38 AM EDT [facility] Blood, Arterial 10/26/2024 1 2:39 AM EDT 10/26/2024 1:38 AM EDT Semaj Mcnair III, MD POINT OF CARE TEST ORDERABLES Final Result Performing Organization Address City/[facility] Co de Phone Number [facility] [address] [place] [address]. [address] * POC Lactate (10/26/2024 12:39 AM EDT) POC Lactate 1.39 0.50 - 2.20 mmol/L 10/26/2024 1:38 AM EDT [facility] Blood, Arterial 10/26/2024 1 2:39 AM EDT 10/26/2024 1:38 AM EDT us Semaj Mcnair III, MD POINT OF CARE TEST ORDERABLES Final Result Performing Organization Address City/State/[facility] Co de Phone Number [facility] 318[facility] CampusSucc[facility]. [address] * (ABNORMAL) POC Glucose (10/26/2024 12:39 AM EDT) POC Glucose, Arterial 116(H) 70 - 100 mg/dL 10/26/2024 1:38 AM EDT [facility] Blood, Arterial 10/26/2024 1 2:39 AM EDT 10/26/2024 1:38 AM EDT us Semaj Mcnair III, MD POINT OF CARE TEST ORDERABLES Final Result Performing Organization Address [facility] Co de Phone Number [facility] [address] [facility]. [address] * (ABNORMAL) POC Ionized Calcium (10/26/2024 12:39 AM EDT) POC Ionized Calcium 4.30(L) 4.50 - 5.30 mg/dL 10/26/2024 1:38 AM EDT [facility] Blood, Arterial 10/26/2024 1 2:39 AM EDT 10/26/2024 1:38 AM EDT Semaj Mcnair III, MD POINT OF CARE TEST ORDERABLES Final Result Performing Organization Address [facility] Co de Phone Number [facility] [address] [facility]. [address] * (ABNORMAL) POC Potassium (10/26/2024 12:39 AM EDT) Pathologist [facility] POC Potassium 2.4(LL) 3.5 - 5.3 mmol/L 10/26/2024 1:38 AM EDT [facility] Blood, Arterial 10/26/2024 1 2:39 AM EDT 10/26/2024 1:38 AM EDT Semaj Mcnair III, MD POINT OF CARE TEST ORDERABLES Final Result Performing Organization Address City/[facility] Co de Phone Number [facility] 318[facility] CampusMaritza [facility]. [address] * POC Sodium (10/26/2024 12:39 AM EDT) POC Sodium 136 136 - 146 mmol/L 10/26/2024 1:38 AM EDT [facility] Blood, Arterial 10/26/2024 1 2:39 AM EDT 10/26/2024 1:38 AM EDT us Semaj Mcnair III, MD POINT OF CARE TEST ORDERABLES Final Result Performing Organization Address City/[facility]/ZIP Co de Phone Number [facility] [address] [facility] * (ABNORMAL) POC TCO2 (10/26/2024 12:39 AM EDT) POC TCO2, Arterial 21(L) 23 - 27 mmol/L 10/26/2024 1:38 AM EDT [facility] Blood, Arterial 10/26/2024 1 2:39 AM EDT 10/26/2024 1:38 AM EDT Semaj Mcnair III, MD POINT OF CARE TEST ORDERABLES Final Result Performing Organization Address [facility] Co de Phone Number [facility] [address] [facility] * POC O2 SAT (10/26/2024 12:39 AM EDT) POC O2 Saturation, Arterial 98 95 - 98 % 10/26/2024 1:38 AM EDT [facility] Blood, Arterial 10/26/2024 1 2:39 AM EDT 10/26/2024 1:38 AM EDT Semaj Mcnair III, MD POINT OF CARE TEST ORDERABLES Final Result Performing Organization Address City/[facility]/ZIP Co de Phone Number [facility] [address] [place] [address]. [address] * (ABNORMAL) POC Base Excess (10/26/2024 12:39 AM EDT) POC Base Excess, Arterial -7(L) -2 - 3 mmol/L 10/26/2024 1:38 AM EDT [facility] Blood, Arterial 10/26/2024 1 2:39 AM EDT 10/26/2024 1:38 AM EDT us Semaj Mcnair III, MD POINT OF CARE TEST ORDERABLES Final Result Performing Organization Address [facility] Co de Phone Number [facility] [address] [facility] * (ABNORMAL) POC HCO3 (10/26/2024 12:39 AM EDT) POC HCO3, Arterial 20(L) 22 - 26 mmol/L 10/26/2024 1:38 AM EDT [facility] Blood, Arterial 10/26/2024 1 2:39 AM EDT 10/26/2024 1:38 AM EDT us Semaj Mcnair III, MD POINT OF CARE TEST ORDERABLES Final Result Performing Organization Address [facility] Co de Phone Number [facility] [address] [facility] * (ABNORMAL) POC PO2 (10/26/2024 12:39 AM EDT) POC pO2, Arterial 117(H) 80 - 100 mm Hg 10/26/2024 1:38 AM EDT [facility] Blood, Arterial 10/26/2024 1 2:39 AM EDT 10/26/2024 1:38 AM EDT us Semaj Mcnair III, MD POINT OF CARE TEST ORDERABLES Final Result Performing Organization Address [facility] Co de Phone Number [facility] [address] [facility] * (ABNORMAL) POC PCO2 (10/26/2024 12:39 AM EDT) POC pCO2, Arterial 46(H) 35 - 45 mm Hg 10/26/2024 1:38 AM EDT [facility] Blood, Arterial 10/26/2024 1 2:39 AM EDT 10/26/2024 1:38 AM EDT us Semaj Mcnair III, MD POINT OF CARE TEST ORDERABLES Final Result Performing Organization Address City/[facility] Co de Phone Number [facility] [address] * (ABNORMAL) POC pH (10/26/2024 12:39 AM EDT) POC pH, Arterial 7.24(L) 7.35 - 7.45 10/26/2024 1:38 AM EDT [facility] Blood, Arterial 10/26/2024 1 2:39 AM EDT 10/26/2024 1:38 AM EDT Semaj Mcnair III, MD POINT OF CARE TEST ORDERABLES Final Result Performing Organization Address [facility] Co de Phone Number [facility] [address] [facility] * Transfuse Platelets (10/26/2024 12:37 AM EDT) Ben Blake MD NURSING TREATMENT ORDERABLES - BLOOD ADMIN Final Result * Transfuse RBC (10/26/2024 12:31 AM EDT) Result [facility] Ben Blake MD NURSING TREATMENT ORDERABLES - BLOOD ADMIN Final Result * Transfuse Fresh Frozen Plasma (10/26/2024 12:28 AM EDT) Result [facility] Ben Blake MD NURSING TREATMENT ORDERABLES - BLOOD ADMIN Final Result * Transfuse Fresh Frozen Plasma (10/26/2024 12:28 AM EDT) Result [facility] Ben Blake MD NURSING TREATMENT ORDERABLES - BLOOD ADMIN Final Result * Routine Culture plus Stain (10/26/2024 12:03 AM EDT) Gram Stain Result Cytospin Results: [facility] Gram Stain Result Polymorphonuclear Leukocytes Seen; [facility] Gram Stain Result No Organisms Seen; [facility] Culture Result No Growth After 3 Days [facility] Surgical Swab ABDOMEN / Unknown 12:03 AM EDT Comment:2.) Ascites Anaerobhic culture Fungus culture Routine culture plus stain Narrative [facility] - 10/28/2024 9:38 PM EDT 2.) Ascites Anaerobhic culture Fungus culture Routine culture plus stain 2.) Ascites us Semaj Mcnair III, MD MICROBIOLOGY - GENE RAL ORDERABLES Final Result [facility] [address] [place] [address], [facility] * Surgical Pathology Exam (10/26/2024 12:00 AM EDT) 10/26/2024 10/27/2024 Narrative [facility] - 10/26/2024 12:00 AM EDT CASE: [id number] PATIENT: BLAIR GILBERT Clinical History: Liver - kidney transplant Pre-Operative Diagnosis: Alcoholic cirrhosis of liver Post-Operative Diagnosis: Alcoholic cirrhosis of liver Specimen(s) Submitted: A. [place] liver CPT Code(s): 32441 X 1; 86700 X 5 Additional Information: FINAL DIAGNOSIS: A. 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 - Negative for neoplasm. - Increased hepatocellular iron deposition (3+; Modified Scheuer). Gall bladder: -Intramucosal and submucosal vascular congestion and hemorrhage. - Negative for dysplasia or malignancy. Gross Description: Received in formalin, labeled Blair Gilbert and [place] liver , is a 2338-gram, hepatectomy specimen [...] discrete masses or other lesions are identified. Transfer And Pumphouse Operator sections are submitted in cassettes [id number] as follows: A1: Hilar margins, en face. [...] Pathologist signing this report is located at [facility], [address] [place] [address], [facility] [phone], CLIA ID: [id number] Semaj Mcnair III, MD PATHOLOGY/CYTOLOGY ORDERABLES Final [...] 0.8 - 1.4 10/27/2024 6:51 AM EDT [facility] Comment: Test results may [...] TEST ORDERABLES Final Result Performing Organization Address City/[facility]/ZIP Co de Phone Number [facility] [address] [facility]. [address] * POC Sample Type (10/25/2024 11:40 PM EDT) Pathologist [facility] POC Sample Type Arterial 10/25/2024 11:57 PM EDT [facility] Blood, Arterial 10/25/2024 1 1:40 PM EDT 10/25/2024 11:57 PM EDT us Semaj Mcnair III, MD POINT OF CARE TEST ORDERABLES Final Result [facility] [address] [facility] * POC Anion Gap (10/25/2024 11:40 PM EDT) POC Anion Gap, Arterial 13 3 - 16 mmol/L 10/25/2024 11:57 PM EDT [facility] Blood, Arterial 10/25/2024 1 1:40 PM EDT 10/25/2024 11:57 PM EDT us Semaj Mcnair III, MD POINT OF CARE TEST ORDERABLES Final Result [facility] [address] * POC Chloride (10/25/2024 11:40 PM EDT) POC Chloride 102 98 - 110 mmol/L 10/25/2024 11:57 PM EDT [facility] Blood, Arterial 10/25/2024 1 1:40 PM EDT 10/25/2024 11:57 PM EDT us Semaj Mcnair III, MD POINT OF CARE TEST ORDERABLES Final Result Performing Organization Address [facility] Co de Phone Number [facility] [address] * (ABNORMAL) POC Hemoglobin (10/25/2024 11:40 PM EDT) POC Hemoglobin 6.6(L) 14.0 - 18.0 g/dL 10/25/2024 11:57 PM EDT [facility] Blood, Arterial 10/25/2024 1 1:40 PM EDT 10/25/2024 11:57 PM EDT us Semaj Mcnair III, MD POINT OF CARE TEST ORDERABLES Final Result Performing Organization Address [facility] Co de Phone Number [facility] [address] [facility]. [address] * (ABNORMAL) POC hematocrit (10/25/2024 11:40 PM EDT) POC Hematocrit 19.0(L) 40 - 52 % 10/25/2024 11:57 PM EDT [facility] Blood, Arterial 10/25/2024 1 1:40 PM EDT 10/25/2024 11:57 PM EDT us Semaj Mcnair III, MD POINT OF CARE TEST ORDERABLES Final Result [facility] [address] * POC Lactate (10/25/2024 11:40 PM EDT) POC Lactate 1.36 0.50 - 2.20 mmol/L 10/25/2024 11:57 PM EDT [facility] Blood, Arterial 10/25/2024 1 1:40 PM EDT 10/25/2024 11:57 PM EDT us Semaj Mcnair III, MD POINT OF CARE TEST ORDERABLES Final Result Performing Organization Address [facility] Co de Phone Number [facility] [address] [facility] * (ABNORMAL) POC Glucose (10/25/2024 11:40 PM EDT) Pathologist [facility] POC Glucose, Arterial 101(H) 70 - 100 mg/dL 10/25/2024 11:57 PM EDT [facility] Blood, Arterial 10/25/2024 1 1:40 PM EDT 10/25/2024 11:57 PM EDT us Semaj Mcnair III, MD POINT OF CARE TEST ORDERABLES Final Result Performing Organization Address [facility] Co de Phone Number [facility] [address] [facility] * POC Ionized Calcium (10/25/2024 11:40 PM EDT) Pathologist [facility] POC Ionized Calcium 4.50 4.50 - 5.30 mg/dL 10/25/2024 11:57 PM EDT [facility] Blood, Arterial 10/25/2024 1 1:40 PM EDT 10/25/2024 11:57 PM EDT us Semaj Mcnair III, MD POINT OF CARE TEST ORDERABLES Final Result [facility] [address] * (ABNORMAL) POC Potassium (10/25/2024 11:40 PM EDT) POC Potassium 1.9(LL) 3.5 - 5.3 mmol/L 10/25/2024 11:57 PM EDT [facility] Blood, Arterial 10/25/2024 1 1:40 PM EDT 10/25/2024 11:57 PM EDT us Semaj Mcnair III, MD POINT OF CARE TEST ORDERABLES Final Result Performing Organization Address [facility] Co de Phone Number [facility] [address] [facility] * (ABNORMAL) POC Sodium (10/25/2024 11:40 PM EDT) POC Sodium 135(L) 136 - 146 mmol/L 10/25/2024 11:57 PM EDT [facility] Blood, Arterial 10/25/2024 1 1:40 PM EDT 10/25/2024 11:57 PM EDT us Semaj Mcnair III, MD POINT OF CARE TEST ORDERABLES Final Result Performing Organization Address [facility] Co de Phone Number [facility] [address] [facility] * (ABNORMAL) POC TCO2 (10/25/2024 11:40 PM EDT) POC TCO2, Arterial 21(L) 23 - 27 mmol/L 10/25/2024 11:57 PM EDT [facility] Blood, Arterial 10/25/2024 1 1:40 PM EDT 10/25/2024 11:57 PM EDT us Semaj Mcnair III, MD POINT OF CARE TEST ORDERABLES Final Result [facility] [address] * POC O2 SAT (10/25/2024 11:40 PM EDT) POC O2 Saturation, Arterial 98 95 - 98 % 10/25/2024 11:57 PM EDT [facility] Blood, Arterial 10/25/2024 1 1:40 PM EDT 10/25/2024 11:57 PM EDT us Semaj Mcnair III, MD POINT OF CARE TEST ORDERABLES Final Result Performing Organization Address City/[facility]/ZIP Co de Phone Number [facility] [address] * (ABNORMAL) POC Base Excess (10/25/2024 11:40 PM EDT) POC Base Excess, Arterial -6(L) -2 - 3 mmol/L 10/25/2024 11:57 PM EDT [facility] Blood, Arterial 10/25/2024 1 1:40 PM EDT 10/25/2024 11:57 PM EDT us Semaj Mcnair III, MD POINT OF CARE TEST ORDERABLES Final Result Performing Organization Address [facility] Co de Phone Number [facility] [address] * (ABNORMAL) POC HCO3 (10/25/2024 11:40 PM EDT) POC HCO3, Arterial 20(L) 22 - 26 mmol/L 10/25/2024 11:57 PM EDT [facility] Blood, Arterial 10/25/2024 1 1:40 PM EDT 10/25/2024 11:57 PM EDT us Semaj Mcnair III, MD POINT OF CARE TEST ORDERABLES Final Result [facility] [address] * (ABNORMAL) POC PO2 (10/25/2024 11:40 PM EDT) POC pO2, Arterial 107(H) 80 - 100 mm Hg 10/25/2024 11:57 PM EDT [facility] Blood, Arterial 10/25/2024 1 1:40 PM EDT 10/25/2024 11:57 PM EDT Semaj Mcnair III, MD POINT OF CARE TEST ORDERABLES Final Result [facility] [address] [facility] * POC PCO2 (10/25/2024 11:40 PM EDT) POC pCO2, Arterial 41 35 - 45 mm Hg 10/25/2024 11:57 PM EDT [facility] Blood, Arterial 10/25/2024 1 1:40 PM EDT 10/25/2024 11:57 PM EDT Semaj Mcnair III, MD POINT OF CARE TEST ORDERABLES Final Result [facility] [address] [facility] * (ABNORMAL) POC pH (10/25/2024 11:40 PM EDT) POC pH, Arterial 7.29(L) 7.35 - 7.45 10/25/2024 11:57 PM EDT [facility] Blood, Arterial 10/25/2024 1 1:40 PM EDT 10/25/2024 11:57 PM EDT us Semaj Mcnair III, MD POINT OF CARE TEST ORDERABLES Final Result [facility] [address] [facility]. [address] * Urine culture (10/25/2024 11:08 PM EDT) Culture Result <1,000 cfu/mL [facility] Culture Result Skin/Urogeni rony Mckayla. No Further Workup. [facility] Newly Placed Berkowitz Urine URINE SPECIMEN / Unknown 10/25/2024 11:08 PM EDT Comment:urine culture Narrative [facility] - 10/28/2024 9:59 AM EDT urine culture urine culture Semaj Mcnair III, MD MICROBIOLOGY - GENE RAL ORDERABLES Final Result [facility] [address] * X-ray Portable Chest (10/25/2024 10:19 [...] - 2.2 mmol/L 10/25/2024 10:39 PM EDT [facility] Plasma 10/25/2024 10:1 7 PM EDT 10/25/2024 10:17 PM EDT us Ben Blake MD LAB BLOOD ORDERABLES Final Re sult Performing Organization Address [facility] Hospital/[facility]/ZIP Co de Phone Number [facility] [address] * (ABNORMAL) Ferritin (10/25/2024 10:17 PM EDT) Ferritin 623.2(H) 23.9 - 336.2 ng/mL 10/25/2024 11:02 PM EDT [facility] Serum 10/25/2024 10:1 7 PM EDT 10/25/2024 10:17 PM EDT us Leandra Og MD LAB BLOOD ORDERABLES F inal Result [facility] [address] [facility]. [address] * Iron Studies (Iron + TIBC) (10/25/2024 10:17 PM EDT) Pathologist [facility] Iron 128 50 - 212 ug/dL 10/25/2024 10:44 PM EDT [facility] % Iron Saturation SEE COMMENT 15.0 - 55.0 % 10/25/2024 10:44 PM EDT [facility] Comment:Unable to calculate result because contributing result outside reportable range.. TIBC SEE COMMENT 261 - 462 ug/dL 10/25/2024 10:44 PM EDT [facility] Comment:Unable to calculate result because contributing result outside reportable range.. Serum 10/25/2024 10:1 7 PM EDT 10/25/2024 10:17 PM EDT Leandra Og MD LAB BLOOD ORDERABLES F inal Result [facility] [address] [place] [address]. [address] * PTH (10/25/2024 10:17 PM EDT) Pathologist [facility] PTH 36.0 12.0 - 88.0 pg/mL 10/25/2024 11:01 PM EDT [facility] Serum 10/25/2024 10:1 7 PM EDT 10/25/2024 10:17 PM EDT Leandra Og MD LAB BLOOD ORDERABLES F inal Result [address] * HIV 1+2 Antibody/Antigen with Reflex (10/25/2024 10:17 PM EDT) Pathologist [facility] HIV 1+2 AB/AGN Nonreactive Nonreactive 10/25/2024 11:03 PM EDT [facility] Serum 10/25/2024 10:1 7 PM EDT 10/25/2024 10:16 PM EDT [facility] - 10/25/2024 11:03 PM EDT \HIVRNR Leandra Og MD LAB BLOOD ORDERABLES F inal Result [facility] [address] [facility] * Hepatitis B Core Antibody (10/25/2024 10:17 PM EDT) Hep B Core Total Ab Nonreactive Nonreactive 10/25/2024 11:07 PM EDT [facility] Comment:Health Department no tified in accordance with reportable infectious disease guidelines. Serum 10/25/2024 10:1 7 PM EDT 10/25/2024 10:17 PM EDT [facility] - 10/25/2024 11:07 PM EDT A nonreactive final interpretation indicates that anti-HBc antibodies were not detected in the sample; it is possible that the individual is not infected with HBV. Leandra Og MD LAB BLOOD ORDERABLES F inal Result Performing Organization Address [facility] Co de Phone Number [facility] [address] [facility]. [address] * Hepatitis C Antibody (10/25/2024 10:17 PM EDT) HCV Ab Nonreactive Nonreactive 10/25/2024 11:16 PM EDT [facility] Comment:Health Department no tified in accordance with reportable infectious disease guidelines. Serum 10/25/2024 10:1 7 PM EDT 10/25/2024 10:17 PM EDT [facility] - 10/25/2024 11:16 PM EDT Antibodies to HCV not detected; does not exclude the possibility of exposure to HCV. Leandra Og MD LAB BLOOD ORDERABLES F inal Result [facility] [address] [facility] * (ABNORMAL) Hepatitis B Surface Antibody, Quantitati (10/25/2024 10:17 PM EDT) Pathologist [facility] HBSAB NUMBER 10.70(H) 0.00 - 9.99 mIU/mL 10/25/2024 11:52 PM EDT [facility] Hep B S Ab Equivocal (A) Nonreactive 10/25/2024 11:52 PM EDT [facility] Serum 10/25/2024 10:1 7 PM EDT 10/25/2024 10:17 PM EDT us Leandra Og MD LAB BLOOD ORDERABLES F inal Result Performing Organization Address [facility] Co de Phone Number [facility] [address] [facility] * Hepatitis B surface antigen (10/25/2024 10:17 PM EDT) Pathologist [facility] Hep B Surface Ag Nonreactive Nonreactive 10/25/2024 11:12 PM EDT [facility] Comment:Health Department no tified in accordance with reportable infectious disease guidelines. Serum 10/25/2024 10:1 7 PM EDT 10/25/2024 10:17 PM EDT Narrative [facility] - 10/25/2024 11:12 PM EDT Specimen is considered negative for HBsAg. us Leandra Og MD LAB BLOOD ORDERABLES F inal Result Performing Organization Address City/[facility] Co de Phone Number [facility] [address] [facility] * Hepatitis A Antibody Total (10/25/2024 10:17 PM EDT) Pathologist [facility] Anti-HAV Total (IgG + IgM) Nonreactive 10/25/2024 11:13 PM EDT [facility] Serum 10/25/2024 10:1 7 PM EDT 10/25/2024 10:17 PM EDT Narrative [facility] - 10/25/2024 11:13 PM EDT HAV antibodies not detected Leandra Og MD LAB BLOOD ORDERABLES F inal Result Performing Organization Address [facility]/ZIP Co de Phone Number [facility] [address] * (ABNORMAL) Hepatic Function Panel (10/25/2024 10:17 PM EDT) Total Bilirubin 9.1(H) 0.0 - 1.5 mg/dL 10/25/2024 10:47 PM EDT [facility] Bilirubin, Direct 4.58(H) 0.00 - 0.40 mg/dL 10/25/2024 10:47 PM EDT [facility] AST 51(H) 13 - 39 U/L 10/25/2024 10:47 PM EDT [facility] ALT 23 7 - 52 U/L 10/25/2024 10:47 PM EDT [facility] Alkaline Phosphatase 144(H) 36 - 125 U/L 10/25/2024 10:47 PM EDT [facility] Total Protein 5.5(L) 6.4 - 8.9 g/dL 10/25/2024 10:47 PM EDT [facility] Albumin 3.5 3.5 - 5.7 g/dL 10/25/2024 10:47 PM EDT [facility] Bilirubin, Indirect 4.52(H) 0.00 - 1.10 mg/dL 10/25/2024 10:47 PM EDT [facility] Plasma 10/25/2024 10:1 7 PM EDT 10/25/2024 10:17 PM EDT Leandra Og MD LAB BLOOD ORDERABLES F inal Result [facility] [address] [facility] * (ABNORMAL) Renal Function Panel w/EGFR (10/25/2024 10:17 PM EDT) Sodium 137 133 - 146 mmol/L 10/25/2024 10:47 PM EDT [facility] Potassium 2.1(LL) 3.5 - 5.3 mmol/L 10/25/2024 10:47 PM EDT [facility] Comment:Critical Result K:2. 1 Called to and read back by: ALICIA CARCAMO RN at: 10/25/2024 22:47:45 by:NANCY Chloride 100 98 - 110 mmol/L 10/25/2024 10:47 PM EDT [facility] CO2 20(L) 21 - 33 mmol/L 10/25/2024 10:47 PM EDT [facility] Anion Gap 17(H) 3 - 16 mmol/L 10/25/2024 10:47 PM EDT [facility] BUN 74(H) 7 - 25 mg/dL 10/25/2024 10:47 PM EDT [facility] Creatinine 3.87(H) 0.60 - 1.30 mg/dL 10/25/2024 10:47 PM EDT [facility] Glucose 114(H) 70 - 100 mg/dL 10/25/2024 10:47 PM EDT [facility] Calcium 9.3 8.6 - 10.3 mg/dL 10/25/2024 10:47 PM EDT [facility] Phosphorus 5.9(H) 2.1 - 4.7 mg/dL 10/25/2024 10:47 PM EDT [facility] Albumin 3.5 3.5 - 5.7 g/dL 10/25/2024 10:47 PM EDT [facility] Osmolality, Calculated 307(H) 278 - 305 mOsm/kg 10/25/2024 10:47 PM EDT [facility] EGFR 19 10/25/2024 10:47 PM T [facility] Comment:As of 2021, the [...] ORDERABLES F inal Result Performing Organization Address City/[facility]/ZIP Co de Phone Number [facility] [address] [place] [address]. [address] * (ABNORMAL) APTT, NO ANTICOAGULANT (10/25/2024 10:17 PM EDT) aPTT 41.7(H) 25.5 - 35.0 seconds 10/25/2024 10:36 PM EDT [facility] Plasma 10/25/2024 10:1 7 PM EDT 10/25/2024 10:17 PM EDT us Leandra Og MD LAB BLOOD ORDERABLES F inal Result Performing Organization Address [facility] Co de Phone Number [facility] [address] [place] [address]. [address] * (ABNORMAL) Protime-INR (10/25/2024 10:17 PM EDT) Protime 21.7(H) 12.1 - 15.1 seconds 10/25/2024 10:35 PM EDT [facility] INR 1.8(H) 0.9 - 1.1 10/25/2024 10:35 PM EDT [facility] Comment: RECOMMENDED THERAPEUTIC RANGES USING INR : Stable oral anticoagulant therapy: 2.0 - 3.0 Mechanical prosthetic heart valve: 2.5 - 3.5 Recurrent acute myocardial infarction: 2.5 - 3.5 Plasma 10/25/2024 10:1 7 PM EDT 10/25/2024 10:17 PM EDT us Leandra Og MD LAB BLOOD ORDERABLES F inal Result [facility] [address] [place] [id number], [facility] * (ABNORMAL) Differential (10/25/2024 10:17 PM EDT) Differential Comments See Note 10/25/2024 10:54 PM EDT [facility] Comment: _Platelets Appear Decreased _Platelet Morphology Normal Scan Result PERFORMED 10/25/2024 10:54 PM EDT [facility] Neutrophils Relative 79.8 40.0 - 80.0 % 10/25/2024 10:54 PM EDT [facility] Lymphocytes Relative 9.6(L) 15.0 - 45.0 % 10/25/2024 10:54 PM EDT [facility] Monocytes Relative 8.9 0.0 - 12.0 % 10/25/2024 10:54 PM EDT [facility] Eosinophils Relative 1.3 0.0 - 8.0 % 10/25/2024 10:54 PM EDT [facility] Basophils Relative 0.4 0.0 - 1.0 % 10/25/2024 10:54 PM EDT [facility] nRBC 0 0 - 0 /100 WBC 10/25/2024 10:54 PM EDT [facility] Neutrophils Absolute 4,948 1,520 - 8,640 /uL 10/25/2024 10:54 PM EDT [facility] Lymphocytes Absolute 595 570 - 4,860 /uL 10/25/2024 10:54 PM EDT [facility] Monocytes Absolute 552 0 - 1,296 /uL 10/25/2024 10:54 PM EDT [facility] Eosinophils Absolute 81 0 - 864 /uL 10/25/2024 10:54 PM EDT [facility] Basophils Absolute 25 0 - 108 /uL 10/25/2024 10:54 PM EDT [facility] PLT Morphology Platelet morphology appears normal 10/25/2024 10:54 PM EDT [facility] Whole Blood 10/25/2024 10:1 7 PM EDT 10/25/2024 10:17 PM EDT us Leandra Og MD LAB BLOOD ORDERABLES F inal Result [facility] [address] [facility] [place] [address], [facility] * (ABNORMAL) CBC (10/25/2024 10:17 PM EDT) WBC 6.2 3.8 - 10.8 10E3/uL 10/25/2024 10:54 PM EDT [facility] RBC 2.40(L) 4.20 - 5.80 10E6/uL 10/25/2024 10:54 PM EDT [facility] Hemoglobin 8.3(L) 13.2 - 17.1 g/dL 10/25/2024 10:54 PM EDT [facility] Hematocrit 23.7(L) 38.5 - 50.0 % 10/25/2024 10:54 PM EDT [facility] MCV 98.9 80.0 - 100.0 fL 10/25/2024 10:54 PM EDT [facility] MCH 34.6(H) 27.0 - 33.0 pg 10/25/2024 10:54 PM EDT [facility] MCHC 35.0 32.0 - 36.0 g/dL 10/25/2024 10:54 PM EDT [facility] RDW 17.8(H) 11.0 - 15.0 % 10/25/2024 10:54 PM EDT [facility] Platelets 56(L) 140 - 400 10E3/uL 10/25/2024 10:54 PM EDT [facility] Comment: Specimen checked for clots. None detected. Slide Reviewed for PLT Clumps. None Seen. Platelet Estimate Decreased 10/25/2024 10:54 PM EDT [facility] MPV 8.1 7.5 - 11.5 fL 10/25/2024 10:54 PM EDT [facility] Whole Blood 10/25/2024 10:1 7 PM EDT 10/25/2024 10:17 PM EDT Narrative [facility] - 10/25/2024 10:54 PM EDT Peripheral blood smear was scanned per review criteria approved by the laboratory neuropsychology medical consultant. us Leandra Og MD LAB BLOOD ORDERABLES F inal Result Performing Organization Address [facility]/ZIP Co de Phone Number [facility] [address] [place] [address], [facility] * Donor Specific Antibody (DSA) (10/25/2024 10:00 PM EDT) Pathologist [facility] AntiDonor Antibodies The request and specimen(s) for this test have been received and transported to the [facility] [place] at [address] [place] [address]. The [facility] will report results directly to the client. 10/25/2024 10:20 PM EDT [facility] Comment:Testing performed by [facility], [facility], [address] [place] [address]. The [facility] report has been forwarded to the appropriate ordering location. Please refer to this report for patient results. Serum 10/25/2024 10:0 0 PM EDT 10/25/2024 10:20 PM EDT Leandra Og MD LAB BLOOD ORDERABLES F inal Result Performing Organization Address [facility] Co de Phone Number [facility] [address] [place] [address], [facility] * (ABNORMAL) Venous Blood Gas, Line/Syringe (10/25/2024 10:00 PM EDT) PH-Line Draw 7.38 7.32 - 7.42 10/25/2024 10:08 PM EDT [facility] PCO2-Line Draw 33(L) 41 - 51 mm Hg 10/25/2024 10:08 PM EDT [facility] PO2-Line Draw 33 25 - 40 mm Hg 10/25/2024 10:08 PM EDT [facility] HCO3-Line Draw 20(L) 24 - 28 mmol/L 10/25/2024 10:08 PM EDT [facility] CO2 Content-Line Draw 21(L) 25 - 29 mmol/L 10/25/2024 10:08 PM EDT [facility] Base Excess-Line Draw -5.0(L) -2.0 - 3.0 mmol/L 10/25/2024 10:08 PM EDT [facility] %HBO2-Line Draw 53.8 40.0 - 70.0 % 10/25/2024 10:08 PM EDT [facility] Carboxyhgb-Ludivina e Draw 1.9 % 10/25/2024 10:08 PM EDT [facility] Comment: CARBOXYHEMOGLOBIN (CO) REFERENCE RANGES: Non-Smokers: <2 % Smokers: <8 % TOXIC: >20 % Methemoglobin- Line Draw 0.2 0.0 - 1.5 % 10/25/2024 10:08 PM EDT [facility] Reduced Hemoglobin-Ludivina e Draw 44.1(H) 0.0 - 5.0 % 10/25/2024 10:08 PM EDT [facility] Venous, Line Draw 10/25/2024 10:00 PM EDT 10/25/2024 10:04 PM EDT us Leandra Og MD LAB BLOOD ORDERABLES F inal Result [facility] [address] * (ABNORMAL) POC Glucose Monitoring Device (10/25/2024 9:56 PM EDT) [facility] POC Glucose Monitoring Device 103(H) 70 - 100 mg/dL 10/25/2024 9:58 PM EDT [facility] Blood 10/25/2024 9:56 PM EDT 10/25/2024 9:57 PM EDT Semaj Mcnair III, MD POINT OF CARE TEST ORDERABLES Final Result [facility] [address] * ECG 12 lead (MUSE) (10/25/2024 9:34 PM EDT) 10/25/2024 9:34 PM EDT Narrative MUSE - 10/27/2024 10:08 AM EDT Ventricular Rate: 97 BPM Atrial Rate: 86 BPM QRS Duration: 106 ms QT: 532 ms QTc: 675 ms P Bono: 38 degrees R Bono: -29 degrees T Bono: 32 degrees Diagnosis Line: Critical Test Result: Long QTc , AV Block ^ SINUS RHYTHM WITH PREMATURE VENTRICULAR COMPLEXES ^ PROLONGED QT ^ NONSPECIFIC ST AND T WAVE CHANGES ^ ABNORMAL ECG ^ ^ Confirmed by MD HA, NOAHYAKady ([id number]) on 10/27/2024 10:08:26 AM Leandra Og MD ECG ORDERABLES Final Result Performing Organization Address [facility] de Phone Number MUSE * Hepatitis C RNA, Quant Reflex to Genotyp (10/25/2024 8:18 PM EDT) International Units Not Detected IU/mL 10/27/2024 11:03 AM EDT [facility] Comment:Test methodology for HCV RNA quantification is an FDA-approved nucleic acid amplification assay. The Lower Limit of Quantitation (LLOQ) is 15 IU/mL. The linear range of the assay is 15-100,000,000 IU/mL. The Limit of Detection (LoD) is 12.0 IU/mL for EDTA plasma. The reference range is Not Detected. IU log10 See Note log 10 IU/mL 10/27/2024 11:03 AM EDT [facility] Comment:HCV RNA not detected . Plasma 10/25/2024 8:18 PM EDT 10/25/2024 10:27 PM EDT Leandra Og MD LAB BLOOD ORDERABLES F inal Result Performing Organization Address [facility] Co de Phone Number [facility] [address] * Urinalysis w/Rfl to Microscopic (10/25/2024 8:18 PM EDT) Color, UA Yellow Yellow,Straw 10/25/2024 10:38 PM EDT [facility] Clarity, UA Clear Clear 10/25/2024 10:38 PM EDT [facility] Specific Delta, UA 1.010 1.005 - 1.035 10/25/2024 10:38 PM EDT [facility] pH, UA 6.0 5.0 - 8.0 10/25/2024 10:38 PM EDT [facility] Protein, UA Negative Negative mg/dL 10/25/2024 10:38 PM EDT [facility] Glucose, UA Negative Negative mg/dL 10/25/2024 10:38 PM EDT [facility] Ketones, UA Negative Negative mg/dL 10/25/2024 10:38 PM EDT [facility] Bilirubin, UA Negative Negative 10/25/2024 10:38 PM EDT [facility] Blood, UA Negative Negative 10/25/2024 10:38 PM EDT [facility] Nitrite, UA Negative Negative 10/25/2024 10:38 PM EDT [facility] Urobilinogen, UA <2.0 0.2 - 1.9 mg/dL 10/25/2024 10:38 PM EDT [facility] Leukocyte Esterase, UA Negative Negative 10/25/2024 10:38 PM EDT [facility] Urine 10/25/2024 8:18 PM EDT 10/25/2024 10:35 PM EDT [facility] - 10/25/2024 10:38 PM EDT Microscopic testing is not performed when the dipstick is negative for blood, leukocyte, protein and nitrite. us Leandra Og MD URINE ORDERABLES Final Result [facility] [address] [place] [address], [facility] * Toxoplasma gondii antibody, IgG (10/25/2024 8:18 PM EDT) Toxoplasma Gondii IgG <3.0 0.0 - 7.1 IU/mL 10/27/2024 7:55 AM EDT [facility] Comment: Negative <7.2 Equivocal 7.2 - 8.7 Positive >8.7 Serum 10/25/2024 8:18 PM EDT 10/27/2024 8:06 AM EDT Narrative [facility] - 10/27/2024 8:06 AM EDT PERFORMED AT: [address] [id number] ACTUARIAL ANALYST: Bassam Khalil, PhD PHONE: [phone] Leandra Og MD LAB BLOOD ORDERABLES F inal Result Performing Organization Address City/[facility]/ZIP Co de Phone Number [facility] [address] [place] [address]. [address] * Antibody Screen (10/25/2024 7:46 PM EDT) Antibody Screen Negative 10/25/2024 10:41 PM EDT [facility] Blood 10/25/2024 7:46 PM EDT 10/25/2024 9:54 PM EDT Narrative [facility] - 10/25/2024 10:44 PM EDT Testing performed by [facility] Transfusion Service Ben Blake MD BLOOD BANK TEST ORDERABLES Fi nal Result Performing Organization Address [facility] Co de Phone Number [address] * ABO/Rh (10/25/2024 7:46 PM EDT) Pathologist [facility] ABO Grouping O 10/25/2024 10:23 PM EDT [facility] Rh Type Positive 10/25/2024 10:23 PM EDT [facility] Blood 10/25/2024 7:46 PM EDT 10/25/2024 9:54 PM EDT Ben Blake MD BLOOD BANK TEST ORDERABLES Fi nal Result Performing Organization Address City/[facility]/ZIP Co de Phone Number [address] * (ABNORMAL) TEG-Standard Global Hemostasis (Rapid TEG with Heparin Effect, Contains a Baseline TEG) (10/25/2024 7:46 PM EDT) Citrated Kaolin Reaction Time (TEGHEPARINASE) 8.4 4.6 - 9.1 minutes 10/25/2024 10:49 PM EDT [facility] Citrated Rapid Teg Maximum Amplitude (TEGHEPARINASE) <40.0(L) 52.0 - 70.0 mm 10/25/2024 10:49 PM EDT [facility] Citrated Functional Fibrinogen Maximum Amplitude (TEGHEPARINASE) 6.7(L) 15.0 - 32.0 mm 10/25/2024 10:49 PM EDT [facility] Citrated Kaolin W/Heparinase Reaction Time (TEGHEPARINASE) 8.1 4.3 - 8.3 minutes 10/25/2024 10:49 PM EDT [facility] Citrated Kaolin K-Time (TEGHEPARINASE) 2.5(A) 0.8 - 2.1 minutes 10/25/2024 10:49 PM EDT [facility] Citrated Kaolin Angle (TEGHEPARINASE) 65.7(A) 63.0 - 78.0 degrees 10/25/2024 10:49 PM EDT [facility] Citrated Kaolin Maximum Amplitude (TEGHEPARINASE) <40.0(L) 52.0 - 69.0 mm 10/25/2024 10:49 PM EDT [facility] Citrated Functional Fibrinogen- Fibrinogen Level (TEGHEPARINASE) 159.5(L) 278.0 - 581.0 mg/dL 10/25/2024 10:49 PM EDT [facility] Whole Blood (Citrate) 10/25/2024 7:46 PM EDT 10/25/2024 10:15 PM EDT us Ben Blake MD LAB BLOOD ORDERABLES Final Re sult [facility] [address] [id number] documented in this encounter Visit Diagnoses Diagnosis Acute kidney injury superimposed on CKD ([facility])- Primary Prophylactic antibiotic Encounter for [...] 2054 (New Bag - Provider: Yvonne Gale RN)2143 [...] RN)2119 (Given - Provider: Yvonne Gale RN) 1149 (Given - Provider: Paulette Flannery RN)1531 (Given - Provider: Meka Montalvo RN) heparin (porcine) injection 5,000 Units 5,000 Units, Subcutaneous, Every 8 hours scheduled (3 times per day), First dose on Sun10/26/24 at 0600 0614 (Given - Provider: Vandana Vilchis RN)1255 (Given - Provider: Paulette Flannery RN)2055 (Given - Provider: Yvonne Gale RN) 0614 [...] parameters not met)1535 (Given - Provider: Meka Montalvo, ЮЛИЯ)1759 (Given - Provider: Paulette Flannery RN) insulin [...] Gale RN) 1018 (Given - Provider: Paulette Flannery, ЮЛИЯ)2119 (Given - Provider: Yvonne Gale RN) 1141 [...] mEq (COMPLETED) 35 mEq, Oral, Once, On Sun11/01/24 at 0830, For 1 dose, FOR PATIENTS [...] 1400 0852 (Given - Provider: Paulette Flannery RN)6 (Given - Provider: Yvonne Gale RN) 1019 (Given - Provider: Paulette Flannery RN)2119 (Given - Provider: Yvonne Gale RN) 1142 [...] documented as of this encounter Care Teams Casino Floorperson Relationship Specialty Start Date End Date Enedina Mcguire NP [address] [place] [address] PCP - General Internal Medicine 10/05/24 documented as of this encounter
--- OUTSIDE RECORDS SUMMARY | 2024-10-27 02:34 | XMS_ITS | Encounter Summary ---
Author Organization [facility] Address [facility] [place] [address] Care Team Providers Care Subway Train Driver Name Role Phone Enedina Mcguire NP Primary Care Provider [phone] Source Comments This information has been disclosed [...] release of HIV test results or diagnoses. [id number] Reason for Visit * Auth/Cert (Routine) Specialty Diagnoses / Procedures Referred By Shane t Referred To Contact Surgical Intensive Care Diagnoses Liver transplant recipient (CMS-HCC) cirrhosis and CKD Procedures LIVER-KIDNEY TRANSPLANT [facility] SICU [address] [place] [address] Phone: tel: Referral ID Status Reason Start Date Expiration Date Visits Re quested Visits Authorized [id number] 1 1 Encounter Details Date Type Department Care Team (Late st Contact Info) Description 10/27/2024 2:34 AM EDT Anesthesia Event [facility] PERIOP [address] [place] [address] Rocky Manning MD [address] [place] [phone] Con Gramajo MD [address] [place] [address] Anesthesia Record Procedure Summary Procedure Name Responsible [...] sodium chloride 0.9% 1 00 mL IVPB (Liqa6Jbj) 1 g cefTRIAXone (ROCEPHIN) 2 g in sodium chl oride 0.9 % 100 mL Whex7Pqp 2 g electrolyte-r (pH 7.4)(NORMOSOL-R pH 7.4 [...] Sounds Confirmed 10/26/24 0622 by Martha Phillip, RANGE RIDER 10/27/24 1310 by Chinedu Almeida, RANGE RIDER Drain 10/27/24; 0636; Bulb ; Abdomen; Inferior, [...] the past 12 months has th e [employer], gas, oil, or water [employer] threatened to shut off services in your [...] living in a prison (including now)? No 10/29/2024 Yearly Questionnaire Answer [...] Blake MD - 10/26/2024 8:01 PM EDT [facility] DEPARTMENT OF ANESTHESIOLOGY PRE-PROCEDURAL EVALUATION Julien Anderson is a 39 y.o. year old male presenting for: Procedure(s): TRANSPLANT KIDNEY with bile duct reconstruction Surgeon: Harvey Domínguez III, MD Chief Complaint cirrhosis and CKD; Liver transplant recipient ([facility]) EtOH cirrhosis decompensated by esophageal varices, [...] is no recent study available for direct wjpp-wt-oaoj comparison. Stress echo 10/09/24: - Left ventricle: [...] at baseline or with provocation, shows no clkmp-zx-pnqz atrial level shunt. - Pulmonary arteries: Systolic [...] Low Risk (07/09/2024) Received from [facility] Overall Financial Resource Strain (CARDIA) Difficulty [...] Activity: Unknown (07/14/2024) Received from [facility] Exercise Vital Sign Days of Exercise per Week: Patient unable to answer Minutes of Exercise per Session: Not on file Stress: Patient Unable To Answer (07/14/2024) Received from [facility] [place] of Occupational Health - Occupational Stress Questionnaire Feeling of Stress : Patient unable to answer Social Connections: Patient Unable To Answer (07/14/2024) Received from [facility] Social Connection and Isolation Panel [NHANES] Frequency of Communication with Friends and Family: Patient unable to answer Frequency of Social Gatherings with Friends and Family: Patient unable to answer Attends Rastafarian Services: Patient unable to answer Active Member [...] at 9:00 PM naloxone (NARCAN) 4 mg/actuation [place] Apply 1 spray in one nostril [...] Blood products not discussed. Plan discussed with CYLINDER DEVALVER and attending. no trial extubation [1] Allergies Allergen Reactions Adhesive Itching and Rash Tegaderm adhesive on Ivs, pt states its tolerable Duloxetine Other (See Comments) Became Manic documented in this encounter Plan of Treatment Upcoming Encounters Date Type Department Care Team (Late st Contact Info) Description 12/05/2024 8:01 AM EDT Hospital Encounter [facility] ENDOSCOPY [address] [place] [phone] Chris Orosco MD [address] [place] [phone] 12/05/2024 8:01 AM EDT - 12/05/2024 8:31 AM EDT Surgery [facility] ENDOSCOPY [address] [place] [address] Chris Orosco MD [address] [place] [phone] EGD Scheduled Procedures Name Priority Associated Diagnoses Date/Ti me EGD Cirrhosis of liver with ascites, unspecified hepatic cirrhosis type (CMS-HCC) 12/05/2024 8:01 AM EDT documented as of this encounter Visit Diagnoses Diagnosis Cirrhosis of liver with ascites, unspecified hepatic cirrhosis type ([facility]) * Transfer of Care - Bryce [...] 0659 10/27/24 07 - 10/28/24 0659 Shift [id number] 1025-6519 7413-4009 24 Hour Total 0300-1747 0318-8836 6767-5624 24 Hour Total INTAKE I.V.(mL/kg) 1450.8(11.8) 999.1(8.2) [...] 1 x 1 x 3 x Albumin 1122 493 7798 Volume (Transfuse Cryoprecipitate Transfusion Rate: Per dept [...] in sodium chloride 0.9 % 100 mL Atur4Sjo) 20 20 Volume (mL) (methylPREDNISolone sodium succinate (SOLU-medrol) 250 mg in sodium chloride 0.9 % 100 mL IVPB) 100 100 Volume (mL) (AMPicillin 1 g in sodium chloride 0.9% 100 mL IVPB (Ttne5Qrk)) 200.2 100 120 420.1 Volume (mL) (mycophenolate [...] 99.3 99.3 Shift Total(mL/kg) 3124.1(25.5) 4253.7(34.7) 6907(56.4) 64901.8(116.6) OUTPUT Urine(mL/kg/hr) 955(1) 505(0.5) 690(0.7) 2150(0.7) 360 360 Urine 315 315 360 360 Output (mL) (IUC (Berkowitz) Triple-lumen (3-Way) 18 Fr.) 955 026 759 7398 Emesis/NG output 250 600 850 Drainage Output (mL) (NG/OG Tube Orogastric) 250 600 850 Drains 1700 6865 612 9086 Output (mL) (Drain Bilary Abdomen Inferior;Right) 100 150 250 Output (mL) ([REMOVED] Drain 1 Abdomen Right;Superior) 800 616 874 9608 Output (mL) (Drain 2 Left;Superior) 800 994 62 6709 Blood 300 300 Est Blood Loss 300 [...] in sodium chloride 0.9% 100 mL IVPB (Qjqa5Tcr) 1 g, Intravenous, at 200 mL/hr, Every 6 hours scheduled (4 times per day), First dose on Sun10/26/24 at 0630, For 2 days, Dosage may need to be adjusted for renal dysfunction. Full dose is 1g IV q6h Use Xvwm9Xoq Adapter - Mix Thoroughly Before Administration New Bag 10/28/2024 1:58 AM EDT 1 g 200 mL/hr Rate/Dose Verify 10/27/2024 7:00 PM EDT 200 mL/ hr New Bag 10/27/2024 6:42 PM EDT 1 g 200 mL/hr angiotensin II (GIAPREZA) 0.005 mg/mL in sodium chloride 0.9 % 500 mL infusion Intravenous, at 0-58.8 mL/hr, Continuous, Starting on [place] 10/26/24 at 1300, Enter on pump as N O DRUG SELECTED Weaning: Once underlying shock sufficiently improved, defined as egs-xfmoxjlioxo-QX-presso r requirement ? 0.2 mcg/kg/min (norepinephrine equivalent) [...] in sodium chloride 0.9 % 100 mL Fism5Abt Intravenous, Administer over 30 Minutes, Continuous - [...] paralyzed: Do not titrate - follow policy [id number]-NX-UTP-MGMT-109-01. Start infusion if unable to maintain goal [...] documented as of this encounter Care Teams Subway Train Driver Relationship Specialty Start Date End Date Enedina Mcguire NP [address] [place] [address] PCP - General Internal Medicine 10/05/24 documented as of this encounter
--- OUTSIDE RECORDS SUMMARY | 2024-11-04 08:40 | XMS_ITS | Encounter Summary ---
Author Organization [facility] Address [address] [place] [address] Care Team Providers Care Professional Services Specialist Name Role Phone Enedina Mcguire NP Primary Care Provider + [phone] Maureen Pantoja RN Unavailable Unavail able Source [...] release of HIV test results or diagnoses. [id number] Reason for Visit * Reason Comments Liver Transplant Follow-up Encounter Details Date Type Department Care Team (Late st Contact Info) Description 11/04/2024 8:40 AM EDT Office Visit [facility] Liver Transplant at [place] [id number] [facility] [address] [place] [address] Cosmo Pacheco MD [address] [place] [address] 3200 [place] [address] Liver transplant recipient (CMS-HCC) (Primary [...] the past 12 months has th e [employer], [employer], oil, or water company threatened to shut [...] living in a snf (including now)? No 10/29/2024 Yearly Questionnaire Answer [...] Nutrition: patient continues close f/u w/ transplant account service associate. - Bone health: Vit D level to be drawn ~POD#90. - Labs: Labs (CBC w/ diff, renal panel, liver panel, tacro level) twice a week. Lipid panel, [id number] Vit D level to be drawn at [...] management for this patient. Cosmo Pacheco MD Client Advisor of Transplant Surgery [phone] (m) [1] Allergies Allergen Reactions Adhesive Itching [...] Description 12/05/2024 8:01 AM EDT Hospital Encounter [facility] ENDOSCOPY [address] [place] [address] Chris Orosco MD [address] [place] [phone] 12/05/2024 8:01 AM EDT - 12/05/2024 8:31 AM EDT Surgery [facility] ENDOSCOPY [address] [place] [address] Chris Orosco MD [address] [place] [phone] EGD Scheduled Procedures Name Priority Associated Diagnoses [...] documented as of this encounter Care Teams Professional Services Specialist Relationship Specialty Start Date End Date Enedina Mcguire NP [address] [place] [address] PCP - General Internal Medicine 10/05/24 Maureen Pantoja, ЮЛИЯ Txp Post Coordinator Transplant Hepatology 10/28/24 documented as of this encounter
--- OUTSIDE RECORDS SUMMARY | 2024-11-04 10:10 | XMS_ITS | Encounter Summary ---
Author Organization [facility] Address Formerly named [facility] [place] [address] Care Team Providers Care Export Documents Clerk Name Role Phone Enedina Mcguire NP Primary Care Provider + [phone] Maureen Pantoja RN Unavailable Unavail able Source [...] release of HIV test results or diagnoses. [id number] Reason for Visit * Reason Comments Kidney Transplant Follow-up Encounter Details Date Type Department Care Team (Late st Contact Info) Description 11/04/2024 10:10 AM EDT Office Visit [facility] Liver Transplant at [facility] [address] [facility] [address] [place] [address] Leisa Juarez MD [facility]0 [facility] 2nd Floor [place] [address] Kidney transplant recipient (Primary Dx); [...] the past 12 months has th e [employer], [employer], oil, or water [employer] threatened to shut off services in your [...] packing; Surgeon: Harvey Domínguez III, MD; Location: [facility]; Service: Transplant; Laterality: N/A; Family [...] (07/09/2024) Received from [facility] Overall Financial Resource Strain (CARDIA) Difficulty of [...] Physical Activity: Unknown (07/14/2024) Received from [facility] Exercise Vital Sign Days of Exercise per Week: Patient unable to answer Minutes of Exercise per Session: Not on file Stress: Patient Unable To Answer (07/14/2024) Received from [facility] [place] of Occupational Health - Occupational Stress Questionnaire Feeling of Stress : Patient unable to answer Social Connections: Patient Unable To Answer (07/14/2024) Received from [facility] Social Connection and Isolation Panel [NHANES] [...] = 12 units lancets (ACCU-CHEK SOFTCLIX LANCETS) [facility] Use to test blood sugar [...] times a day. naloxone (NARCAN) 4 mg/actuation [place] Apply 1 spray in one nostril if [...] Results Component Value Date PTH 36.0 10/25/2024 [id number] 7.1 (L) 10/08/2024 Hemoglobin A1C: Lab Results [...] Description 12/05/2024 8:01 AM EDT Hospital Encounter [facility] ENDOSCOPY [address] [place] [id number] Chris Orosco MD [address] [place] [phone] 12/05/2024 8:01 AM EDT - 12/05/2024 8:31 AM EDT Surgery [facility] ENDOSCOPY [address] [place] [id number] Chris Orosco MD [address] [place] [phone] EGD Scheduled Orders Name Type Priority Associated [...] Occurrences starting 11/03/2024 until 05/18/2025, 3 completed Enteric Pathogen Panel Lab Routine Diarrhea [...] - 2.5 mg/dL 11/25/2024 10:20 AM EDT [facility] Plasma 11/25/2024 8:42 AM EDT 11/25/2024 9:47 AM EDT Yareli Zaragoza [facility] BLOOD ORDERABLES Denisse l Result Performing Organization Address City/[facility] Co de Phone Number [facility] [address] [place] [address]. [address] * (ABNORMAL) Magnesium (11/11/2024 9:13 AM EDT) Magnesium 1.2(L) 1.5 - 2.5 mg/dL 11/11/2024 10:51 AM EDT [facility] Plasma 11/11/2024 9:13 AM EDT 11/11/2024 10:19 AM EDT Yareli Zaragoza [facility] BLOOD ORDERABLES Denisse l Result Performing Organization Address [facility] Co de Phone Number [facility] [address] [facility]. [address] * (ABNORMAL) Post Kidney Transplant Urine Culture (11/11/2024 9:13 AM EDT) Culture Result Enterococcus faecium(A) [facility] Comment: <1,000 cfu/mL Identified by MALDI-TOF MS No Further Workup Midstream Urine URINE SPECIMEN / Unknown 11/11/2024 9:13 AM EDT 11/11/2024 10:17 AM EDT Yareli Zaragoza [facility] MICROBIOLOGY - GENERAL OR DERABLES Final Result Performing Organization Address [facility] Co de Phone Number [facility] [address] [place] [address]. [address] * Protein / creatinine ratio, urine (11/11/2024 9:13 AM EDT) Creatinine, Urine 71.40 mg/dL 11/11/2024 10:38 AM EDT [facility] Comment:Reference range not established for this test. Total Protein, Ur 28 mg/dL 11/11/2024 10:38 AM EDT [facility] Comment:Reference range not established for this test. Prot/Creat Ratio, Ur 0.39 ratio 11/11/2024 10:38 AM EDT [facility] Urine 11/11/2024 9:13 AM EDT 11/11/2024 10:12 AM EDT us Yareli Zaragoza COMMUNICATION AND OUTREACH MANAGER URINE ORDERABLES Final Re sult [facility] [address] [place] [address], [facility] * (ABNORMAL) Urinalysis w/Rfl to Microscopic (11/11/2024 9:13 AM EDT) Color, UA Straw Yellow,Straw 11/11/2024 10:36 AM EDT [facility] Clarity, UA Clear Clear 11/11/2024 10:36 AM EDT [facility] Specific [place], UA 1.015 1.005 - 1.035 11/11/2024 10:36 AM EDT [facility] pH, UA 6.0 5.0 - 8.0 11/11/2024 10:36 AM EDT [facility] Protein, UA Negative Negative mg/dL 11/11/2024 10:36 AM EDT [facility] Glucose, UA Negative Negative mg/dL 11/11/2024 10:36 AM EDT [facility] Ketones, UA Negative Negative mg/dL 11/11/2024 10:36 AM EDT [facility] Bilirubin, UA Negative Negative 11/11/2024 10:36 AM EDT [facility] Blood, UA Small(A) Negative 11/11/2024 10:36 AM EDT [facility] Nitrite, UA Negative Negative 11/11/2024 10:36 AM EDT [facility] Urobilinogen, UA <2.0 0.2 - 1.9 mg/dL 11/11/2024 10:36 AM EDT [facility] Leukocyte Esterase, UA Negative Negative 11/11/2024 10:36 AM EDT [facility] RBC, UA 13(H) 0 - 3 /HPF 11/11/2024 10:36 AM EDT [facility] WBC, UA 4 0 - 5 /HPF 11/11/2024 10:36 AM EDT [facility] Urine 11/11/2024 9:13 AM EDT 11/11/2024 10:10 AM EDT Yareli Zaragoza [facility] URINE ORDERABLES Final Re sult Performing Organization Address City/[facility] Co de Phone Number [facility] [address] [place] [address] * (ABNORMAL) Magnesium (11/04/2024 8:46 AM EDT) Magnesium 1.0(L) 1.5 - 2.5 mg/dL 11/04/2024 10:06 AM EDT [facility] Plasma 11/04/2024 8:4 6 AM EDT 11/04/2024 9:32 AM EDT Yareli Zaragoza [facility] BLOOD ORDERABLES Denisse l Result Performing Organization Address [facility] de Phone Number [facility] [address] [place] [address] * (ABNORMAL) Post Kidney Transplant Urine Culture (11/04/2024 8:46 AM EDT) Culture Result Enterococcus faecium, Vancomycin Resistant(A) [facility] Comment: 1,000- [...] OR DERABLES Final Result Performing Organization Address [facility]/ZIP Co de Phone Number [facility] [address] [facility]. [address] * Protein / creatinine ratio, urine (11/04/2024 8:46 AM EDT) Creatinine, Urine 37.30 mg/dL 11/04/2024 2:55 PM EDT [facility] Comment:Reference range not established for this test. Total Protein, Ur 42 mg/dL 11/04/2024 2:55 PM EDT [facility] Comment:Reference range not established for this test. Prot/Creat Ratio, Ur 1.13 ratio 11/04/2024 2:55 PM EDT [facility] Urine 11/04/2024 8:46 AM EDT 11/04/2024 9:32 AM EDT Yareli Zaragoza CNP URINE ORDERABLES Final Re sult Performing Organization Address [facility] Co de Phone Number [facility] [address] [place] [facility]. [address] * (ABNORMAL) Urinalysis w/Rfl to Microscopic (11/04/2024 8:46 AM EDT) Color, UA Straw Yellow,Straw 11/04/2024 10:07 AM EDT [facility] Clarity, UA Clear Clear 11/04/2024 10:07 AM EDT [facility] Specific [place], UA 1.012 1.005 - 1.035 11/04/2024 10:07 AM EDT [facility] pH, UA 6.5 5.0 - 8.0 11/04/2024 10:07 AM EDT [facility] Protein, UA Trace(A) Negative mg/dL 11/04/2024 10:07 AM EDT [facility] Glucose, UA Negative Negative mg/dL 11/04/2024 10:07 AM EDT [facility] Ketones, UA Negative Negative mg/dL 11/04/2024 10:07 AM EDT [facility] Bilirubin, UA Negative Negative 11/04/2024 10:07 AM EDT [facility] Blood, UA Large(A) Negative 11/04/2024 10:07 AM EDT [facility] Nitrite, UA Negative Negative 11/04/2024 10:07 AM EDT [facility] Urobilinogen, UA <2.0 0.2 - 1.9 mg/dL 11/04/2024 10:07 AM EDT [facility] Leukocyte Esterase, UA Negative Negative 11/04/2024 10:07 AM EDT [facility] RBC, UA >100(H) 0 - 3 /HPF 11/04/2024 10:07 AM EDT [facility] WBC, UA 2 0 - 5 /HPF 11/04/2024 10:07 AM EDT [facility] Bacteria, UA Rare(A) None Seen /HPF 11/04/2024 10:07 AM EDT [facility] Hyaline Casts, UA 3(H) 0 - 2 /LPF 11/04/2024 10:07 AM EDT [facility] Urine 11/04/2024 8:46 AM EDT 11/04/2024 9:33 AM EDT Yareli Zaragoza [facility] URINE ORDERABLES Final Re sult [facility] [address] [place] [address], [facility] documented in [...] documented as of this encounter Care Teams Export Documents Clerk Relationship Specialty Start Date End Date Enedina Mcguire NP [address] [place] [address] PCP - General Internal Medicine 10/05/24 Maureen Pantoja, RN Txp Post Coordinator Transplant Hepatology 10/28/24 documented as of this encounter
--- OUTSIDE RECORDS SUMMARY | 2024-11-11 08:50 | XMS_ITS | Encounter Summary ---
Author Organization [facility] Address [facility] [place] [address] Care Team Providers Care Thermodynamic Physicist Name Role Phone Enedina Mcguire NP Primary Care Provider + [phone] Maureen Pantoja RN Unavailable Unavail able Source [...] release of HIV test results or diagnoses. [id number] Reason for Visit * Reason Comments Labs Only Encounter Details Date Type Department Care Team (Late st Contact Info) Description 11/11/2024 8:50 AM EDT Specimen [facility] Outreach Lab [facility] [place] [address] Harvey Domínguez III, MD [facility] [address] [place] [address] Liver replaced by transplant ([facility]); Immunosuppressive management encounter following liver transplant ([facility]); Kidney transplant recipient Social History Tobacco [...] the past 12 months has th e [employer], oil, or water company threatened to shut [...] living in a usp (including now)? No 10/29/2024 Yearly Questionnaire Answer [...] EDT Hospital Encounter [facility] ENDOSCOPY [address] [place] [address] Chris Orosco MD [address] [place] [phone] 12/05/2024 8:01 AM EDT - 12/05/2024 8:31 AM EDT Surgery [facility] ENDOSCOPY [address] [place] [address] Chris Orosco MD [address] [place] [phone] EGD Scheduled Procedures Name Priority Associated Diagnoses [...] 9:13 AM EDT Liver replaced by transplant ([facility]) Immunosuppressive management encounter following liver transplant (CMS-HCC) PROTEIN / CREATININE RATIO, URINE Routine 11/11/2024 9:13 AM EDT Kidney transplant recipient DIFFERENTIAL Routine 11/11/2024 9:13 AM EDT Liver replaced by transplant ([facility]) Immunosuppressive management encounter following liver transplant (CMS-HCC) URINALYSIS W/RFL TO MICROSCOPIC Routine 11/11/2024 9:13 AM EDT Kidney transplant recipient CBC Routine 11/11/2024 9:13 AM EDT Liver replaced by transplant ([facility]) Immunosuppressive management encounter following liver transplant ([facility]) MAGNESIUM Routine 11/11/2024 9:13 AM EDT Kidney transplant recipient documented in this encounter Results * (ABNORMAL) Magnesium (11/11/2024 9:13 AM EDT) Magnesium 1.2(L) 1.5 - 2.5 mg/dL 11/11/2024 10:51 AM EDT [facility] Plasma 11/11/2024 9:13 AM EDT 11/11/2024 10:19 AM EDT Caron Santos [facility] LAB BLOOD ORDERABLES Denisse l Result [facility] [address] [place] [address], [facility] * (ABNORMAL) Post Kidney Transplant Urine Culture (11/11/2024 9:13 AM EDT) Culture Result Enterococcus faecium(A) [facility] Comment: <1,000 cfu/mL Identified by MALDI-TOF MS No Further Workup Midstream Urine URINE SPECIMEN / Unknown 11/11/2024 9:13 AM EDT 11/11/2024 10:17 AM EDT Caron Santos CNP MICROBIOLOGY - GENERAL OR DERABLES Final Result Performing Organization Address [facility]/ZIP Co de Phone Number [facility] [address] * Protein / creatinine ratio, urine (11/11/2024 9:13 AM EDT) Creatinine, Urine 71.40 mg/dL 11/11/2024 10:38 AM EDT [facility] Comment:Reference range not established for this test. Total Protein, Ur 28 mg/dL 11/11/2024 10:38 AM EDT [facility] Comment:Reference range not established for this test. Prot/Creat Ratio, Ur 0.39 ratio 11/11/2024 10:38 AM EDT [facility] Urine 11/11/2024 9:13 AM EDT 11/11/2024 10:12 AM EDT Caron Santos CNP URINE ORDERABLES Final Re sult Performing Organization Address [facility] Co de Phone Number [facility] [address] [facility]. [address] * (ABNORMAL) Urinalysis w/Rfl to Microscopic (11/11/2024 9:13 AM EDT) Color, UA Straw Yellow,Straw 11/11/2024 10:36 AM EDT [facility] Clarity, UA Clear Clear 11/11/2024 10:36 AM EDT [facility] Specific [place], UA 1.015 1.005 - 1.035 11/11/2024 10:36 AM EDT [facility] pH, UA 6.0 5.0 - 8.0 11/11/2024 10:36 AM EDT [facility] Protein, UA Negative Negative mg/dL 11/11/2024 10:36 AM EDT [facility] Glucose, UA Negative Negative mg/dL 11/11/2024 10:36 AM EDT [facility] Ketones, UA Negative Negative mg/dL 11/11/2024 10:36 AM EDT [facility] Bilirubin, UA Negative Negative 11/11/2024 10:36 AM EDT [facility] Blood, UA Small(A) Negative 11/11/2024 10:36 AM EDT [facility] Nitrite, UA Negative Negative 11/11/2024 10:36 AM EDT [facility] Urobilinogen, UA <2.0 0.2 - 1.9 mg/dL 11/11/2024 10:36 AM EDT [facility] Leukocyte Esterase, UA Negative Negative 11/11/2024 10:36 AM EDT [facility] RBC, UA 13(H) 0 - 3 /HPF 11/11/2024 10:36 AM EDT [facility] WBC, UA 4 0 - 5 /HPF 11/11/2024 10:36 AM EDT [facility] Urine 11/11/2024 9:13 AM EDT 11/11/2024 10:10 AM EDT Caron Santos [facility] URINE ORDERABLES Final Re sult [facility] [address] * (ABNORMAL) Differential (11/11/2024 9:13 AM EDT) Neutrophils Relative 69.3 40.0 - 80.0 % 11/11/2024 10:31 AM EDT [facility] Lymphocytes Relative 17.6 15.0 - 45.0 % 11/11/2024 10:31 AM EDT [facility] Monocytes Relative 8.5 0.0 - 12.0 % 11/11/2024 10:31 AM EDT [facility] Eosinophils Relative 2.0 0.0 - 8.0 % 11/11/2024 10:31 AM EDT [facility] Basophils Relative 2.6(H) 0.0 - 1.0 % 11/11/2024 10:31 AM EDT [facility] nRBC 0 0 - 0 /100 WBC 11/11/2024 10:31 AM EDT [facility] Neutrophils Absolute 4,920 1,520 - 8,640 /uL 11/11/2024 10:31 AM EDT [facility] Lymphocytes Absolute 1,250 570 - 4,860 /uL 11/11/2024 10:31 AM EDT [facility] Monocytes Absolute 604 0 - 1,296 /uL 11/11/2024 10:31 AM EDT [facility] Eosinophils Absolute 142 0 - 864 /uL 11/11/2024 10:31 AM EDT [facility] Basophils Absolute 185(H) 0 - 108 /uL 11/11/2024 10:31 AM EDT [facility] Whole Blood 11/11/2024 9:13 AM EDT 11/11/2024 10:19 AM EDT Narrative [facility] - 11/11/2024 10:31 AM EDT Standing orders to be drawn: Every Sunday and before 9am and prior to patient taking morning medications. Liver Transplant Fax results to [phone] Call Critical results to [phone] us Harvey Domínguez III, MD LAB BLOOD ORDERABLE S Final Result [facility] [address] * (ABNORMAL) CBC (11/11/2024 9:13 AM EDT) WBC 7.1 3.8 - 10.8 10E3/uL 11/11/2024 10:31 AM EDT [facility] RBC 3.42(L) 4.20 - 5.80 10E6/uL 11/11/2024 10:31 AM EDT [facility] Hemoglobin 10.6(L) 13.2 - 17.1 g/dL 11/11/2024 10:31 AM EDT [facility] Hematocrit 31.3(L) 38.5 - 50.0 % 11/11/2024 10:31 AM EDT [facility] MCV 91.5 80.0 - 100.0 fL 11/11/2024 10:31 AM EDT [facility] MCH 31.0 27.0 - 33.0 pg 11/11/2024 10:31 AM EDT [facility] MCHC 33.8 32.0 - 36.0 g/dL 11/11/2024 10:31 AM EDT [facility] RDW 20.5(H) 11.0 - 15.0 % 11/11/2024 10:31 AM EDT [facility] Platelets 308 140 - 400 10E3/uL 11/11/2024 10:31 AM EDT [facility] MPV 6.1(L) 7.5 - 11.5 fL 11/11/2024 10:31 AM EDT [facility] Whole Blood 11/11/2024 9:13 AM EDT 11/11/2024 10:19 AM EDT Narrative [facility] - 11/11/2024 10:31 AM EDT Standing orders to be drawn: Every Sunday and before 9am and prior to patient taking morning medications. Liver Transplant Fax results to [phone] Call Critical results to [phone] us Harvey Domínguez III, MD LAB BLOOD ORDERABLE S Final Result [facility] [address] * (ABNORMAL) Renal Function Panel w/EGFR (11/11/2024 9:13 AM EDT) Sodium 141 133 - 146 mmol/L 11/11/2024 10:51 AM EDT [facility] Potassium 4.6 3.5 - 5.3 mmol/L 11/11/2024 10:51 AM EDT [facility] Chloride 108 98 - 110 mmol/L 11/11/2024 10:51 AM EDT [facility] CO2 24 21 - 33 mmol/L 11/11/2024 10:51 AM EDT [facility] Anion Gap 9 3 - 16 mmol/L 11/11/2024 10:51 AM EDT [facility] BUN 27(H) 7 - 25 mg/dL 11/11/2024 10:51 AM EDT [facility] Creatinine 1.14 0.60 - 1.30 mg/dL 11/11/2024 10:51 AM EDT [facility] Glucose 97 70 - 100 mg/dL 11/11/2024 10:51 AM EDT [facility] Calcium 8.6 8.6 - 10.3 mg/dL 11/11/2024 10:51 AM EDT [facility] Phosphorus 4.4 2.1 - 4.7 mg/dL 11/11/2024 10:51 AM EDT [facility] Albumin 3.8 3.5 - 5.7 g/dL 11/11/2024 10:51 AM EDT [facility] Osmolality, Calculated 297 278 - 305 mOsm/kg 11/11/2024 10:51 AM EDT [facility] EGFR 83 11/11/2024 10:51 AM EDT [facility] Comment:As of 2021, the estimated [...] AM EDT 11/11/2024 10:19 AM EDT Narrative [facility] - 11/11/2024 10:51 AM EDT Standing orders to be drawn: Every Sunday and before 9am and prior to patient taking morning medications. Liver Transplant Fax results to [phone] Call Critical results to [phone] DO NOT REPLACE RENAL PANEL or HEPATIC FUNCTION PANEL w/ CMP, BMP or HEPATIC PROFILE Harvey Domínguez III, MD LAB BLOOD ORDERABLE S Final Result [facility] [address] * (ABNORMAL) Hepatic Function Panel (11/11/2024 9:13 AM EDT) Total Bilirubin 1.0 0.0 - 1.5 mg/dL 11/11/2024 10:51 AM EDT [facility] Bilirubin, Direct 0.39 0.00 - 0.40 mg/dL 11/11/2024 10:51 AM EDT [facility] AST 15 13 - 39 U/L 11/11/2024 10:51 AM EDT [facility] ALT 26 7 - 52 U/L 11/11/2024 10:51 AM EDT [facility] Alkaline Phosphatase 125 36 - 125 U/L 11/11/2024 10:51 AM EDT [facility] Total Protein 5.9(L) 6.4 - 8.9 g/dL 11/11/2024 10:51 AM EDT [facility] Albumin 3.8 3.5 - 5.7 g/dL 11/11/2024 10:51 AM EDT [facility] Bilirubin, Indirect 0.61 0.00 - 1.10 mg/dL 11/11/2024 10:51 AM EDT [facility] Plasma 11/11/2024 9:13 AM EDT 11/11/2024 10:19 AM EDT Narrative [facility] - 11/11/2024 10:51 AM EDT Standing orders to be drawn: Every Sunday and before 9am and prior to patient taking morning medications. Liver Transplant Fax results to [phone] Call Critical results to [phone] DO NOT REPLACE RENAL PANEL or HEPATIC FUNCTION PANEL w/ CMP, BMP or HEPATIC PROFILE us Harvey Domínguez III, MD LAB BLOOD ORDERABLE S Final Result [facility] [address] [place] [address], [facility] * Tacrolimus level (11/11/2024 9:13 AM EDT) Tacrolimus (LC-MS) 10.4 3.0 - 15.0 ng/mL 11/11/2024 1:22 PM EDT [facility] Comment:Performed via liquid chromatography tandem mass spectrometry. Detection limit: 1 ng/mL. Individual target concentrations may vary due to target organ and time after transplant. This test has been developed and its performance characteristics determined by [facility] which is certified under the Clinical [...] AM EDT 11/11/2024 10:19 AM EDT Narrative [facility] - 11/11/2024 1:22 PM EDT Standing orders to be drawn: Every Sunday and before 9am and prior to patient taking morning medications. Liver Transplant Fax results to [phone] Call Critical results to [phone] Harvey Domínguez III, MD LAB BLOOD ORDERABLE S Final Result [facility] [address] documented in this encounter Visit Diagnoses [...] documented as of this encounter Care Teams Thermodynamic Physicist Relationship Specialty Start Date End Date Enedina Mcguire NP [address] [place] [id number] PCP - General Internal Medicine 10/05/24 Maureen Pantoja, ЮЛИЯ Txp Post Coordinator Transplant Hepatology 10/28/24 documented as of this encounter
--- OUTSIDE RECORDS SUMMARY | 2024-11-11 09:30 | XMS_ITS | Encounter Summary ---
Author Organization [facility] Address [address] [place] [address] Care Team Providers Care Elevator Inspector Name Role Phone Enedina Mcguire NP Primary Care Provider + [phone] Maureen Pantoja RN Unavailable Unavail able Source [...] release of HIV test results or diagnoses. [id number] Health Encounter Details Date Type Department Care Team (Late st Contact Info) Description 11/11/2024 9:30 AM EDT Office Visit [facility] Psychiatry Transplant at [facility] [address] [facility] [address] [place] [address] Craig Warren PsyD [address] [facility] [address] [place] [address] PTSD (post-traumatic stress disorder) (Primary [...] In the past 12 months has th [employer], [employer], or [employer] threatened to shut off services in [...] alcohol and CKD IIIb/IV. Seen by this parts data writer for pre-surgical evaluation. PMH includes PTSD [...] Encounter [facility] ENDOSCOPY [address] [place] [address] Chris Orosco MD [address] [place] [phone] 12/05/2024 8:01 AM EDT - 12/05/2024 8:31 AM EDT Surgery [facility] ENDOSCOPY [address] [place] [id number] Chris Orosco MD [address] [place] [phone] EGD Scheduled Procedures Name Priority Associated Diagnoses [...] as of this encounter Care Teams Elevator Inspector Relationship Specialty Start Date End Date Enedina Mcguire NP [address] [place] [address] PCP - General Internal Medicine 10/05/24 Maureen Pantoja, ЮЛИЯ Txp Post Coordinator Transplant Hepatology 10/28/24 documented as of this encounter
--- OUTSIDE RECORDS SUMMARY | 2024-11-11 10:00 | XMS_ITS | Encounter Summary ---
Author Organization [facility] Address [address] [place] [address] Care Team Providers Care Tin Dipper Name Role Phone Enedina Mcguire NP Primary Care Provider + [phone] Maureen Pantoja RN Unavailable Unavail able Source [...] release of HIV test results or diagnoses. [id number] Reason for Visit * Reason Comments Liver Transplant Follow-up Encounter Details Date Type Department Care Team (Late st Contact Info) Description 11/11/2024 10:00 AM EDT Office Visit [facility] Liver Transplant at [place] [address] [place] [address] Cosmo Pacheco MD [address] [place], [place] [address] [place] [address] Harvey Domínguez III, MD [address] [place] [address] 3200 [place] [address] Encounter for therapeutic drug monitoring [...] the past 12 months has th e [employer], [employer], oil, or water company threatened to [...] = 12 units lancets (ACCU-CHEK SOFTCLIX LANCETS) [facility] Use to test blood sugar up to [...] times a day. naloxone (NARCAN) 4 mg/actuation [place] Apply 1 spray in one nostril [...] Negative Donor HBV Serologies: HBcAb Negative, HBV KIAAN Negative Vitamin D level: 7.1 Immunosuppression: Standard [...] Nutrition: patient continues close f/u w/ transplant tobacco sprayer. - Bone health: Vit D level to be drawn ~POD#90. - Labs: Labs (CBC w/ diff, renal panel, liver panel, tacro level) twice a week. Lipid panel, [id number] Vit D level to be drawn at POD#90, HgbA1C and Vit D level to be drawn at POD#180. - Follow up: RTC 2 weeks Kemar Sahni MD, Fellow, Multiorgan Abdominal Transplant Surgery. [facility]. [1] Allergies Allergen Reactions Adhesive Itching and [...] Description 12/05/2024 8:01 AM EDT Hospital Encounter [facility] ENDOSCOPY [address] [place] [address] Chris Orosco MD [address] [place] [address] [phone] 12/05/2024 8:01 AM EDT - 12/05/2024 8:31 AM EDT Surgery [facility] ENDOSCOPY [address] [place] [address] Chris Orosco MD [address] [place] [phone] EGD Scheduled Procedures Name Priority Associated Diagnoses [...] documented as of this encounter Care Teams Tin Dipper Relationship Specialty Start Date End Date Enedina Mcguire NP [address] [place] [address] PCP - General Internal Medicine 10/05/24 Maureen Pantoja, ЮЛИЯ Txp Post Coordinator Transplant Hepatology 10/28/24 documented as of this encounter
--- OUTSIDE RECORDS SUMMARY | 2024-11-11 10:30 | XMS_ITS | Encounter Summary ---
Author Organization [facility] Address [address] [place] [address] Care Team Providers Care Positive Printer Operator Name Role Phone Enedina Mcguire NP Primary Care Provider [phone] Maureen Pantoja RN Unavailable Unavail able Source [...] release of HIV test results or diagnoses. [id number] Reason for Visit * Reason Comments Kidney Transplant Follow-up Encounter Details Date Type Department Care Team (Late st Contact Info) Description 11/11/2024 10:30 AM EDT Office Visit [facility] Liver Transplant at [facility] [address] [facility] [address] [place] [address] Unknown, Attending Provider Seble Colon [address] [facility], [facility] [address] [place] [address] Kidney replaced by transplant (Primary [...] Activity: Unknown (07/14/2024) Received from [facility] Exercise Vital Sign Days of Exercise per Week: Patient unable to answer Minutes of Exercise per Session: Not on file Stress: Patient Unable To Answer (07/14/2024) Received from [facility] Trinidadian [place] of Occupational Health - Occupational Stress Questionnaire Feeling of Stress : Patient unable to answer Social Connections: Patient Unable To Answer (07/14/2024) Received from [facility] Social Connection and Isolation Panel [...] Lastdose 11/26/24 blood sugar diagnostic (GLUCOSE BLOOD) [facility] Use to test blood sugar up to 4 times a day. blood-glucose meter (TRUE METRIX GLUCOSE METER) [facility] Use to test [...] = 12 units lancets (ACCU-CHEK SOFTCLIX LANCETS) [facility] Use to test [...] times a day. naloxone (NARCAN) 4 mg/actuation [place] Apply 1 spray in one nostril if [...] Results Component Value Date PTH 36.0 10/25/2024 [id number] 7.1 (L) 10/08/2024 Hemoglobin A1C: Lab Results [...] 12/05/2024 8:01 AM EDT Hospital Encounter [facility] ENDOSCOPY [address] [place] [phone] Chris Orosco MD [address] [place] [phone] 12/05/2024 8:01 AM EDT - 12/05/2024 8:31 AM EDT Surgery [facility] ENDOSCOPY [address] [place] [id number] Chris Orosco MD [address] [place] [phone] EGD Scheduled Procedures Name Priority Associated Diagnoses Date/Ti me EGD Cirrhosis of liver with ascites, unspecified hepatic cirrhosis type ([facility]) 12/05/2024 8:01 AM EDT documented as of this encounter Visit Diagnoses Diagnosis Kidney replaced by transplant- Primary Hypervolemia associated with renal insufficiency Cirrhosis of liver with ascites, unspecified hepatic cirrhosis type ([facility]) documented in this encounter Additional Health Concerns Infection Onset Date Last Indicated Resolved Time 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
--- OUTSIDE RECORDS SUMMARY | 2024-11-25 09:00 | XMS_ITS | Encounter Summary ---
Author Organization [facility] Address [address] [place] [address] Care Team Providers Care Building Wrecker Name Role Phone Enedina Mcguire NP Primary Care Provider + [phone] Maureen Pantoja RN Unavailable Unavail able Source [...] release of HIV test results or diagnoses. [id number] Health Encounter Details Date Type Department Care Team (Late st Contact Info) Description 11/25/2024 9:00 AM EDT Procedure visit [facility] U[facility] at [place] [facility] [address] [facility] [address] [place] [address] Julieta Rogers PA 222 [facility] [address] [place] [address] Retained ureteral stent of transplanted kidney ([facility]-HCC) (Primary Dx) Social History Tobacco Use [...] the past 12 months has th e [employer], [employer], oil, or water company threatened to shut [...] used for procedure: Flex Uro Loaner 12 [facility] Urology Flexible Cystoscope Log Cystoscope Label Serial Number Model Flex Uro 1 [id number] Olympus CYF-VHR Flex Uro 2 6534659 Olympus CYF Type V2R Flex Uro 3 7437527 Olympus CYF Type V2R Flex Uro 4 4253118 Olympus CYF Type V2R Flex Uro 5 9075066 Olympus CYF Type V2R Flex Uro 6 2873854 Olympus CYF Type V2R Flex Uro 7 0375133 CYF VHR Flex Uro 8 4470794 CYF VHR Flex Uro 9 3614026 CYF VHR Flex Uro 10 2960344 CYF VHR Flex Uro 11 7394182 CYF VHR Flex Uro 12 9053173 CYF VHR Uro Loaner 12 [id number] CYF VHR Uro Loaner 13 [id number] CYF VHR Uro Loaner 14 [id number] CYF VHR * NAA Merida - 11/25/2024 [...] [facility] ENDOSCOPY [address] [place] [address] Chris Orosco MD [address] [place] [id number] 12/05/2024 8:01 AM EDT - 12/05/2024 8:31 AM EDT Surgery [facility] ENDOSCOPY [address] [place] [address] Chris Orosco MD [address] [place] [address] EGD Scheduled Procedures Name Priority Associated Diagnoses Date/Ti me EGD Cirrhosis of liver with ascites, unspecified hepatic cirrhosis type (CMS-HCC) 12/05/2024 8:01 AM EDT documented as of this encounter Visit Diagnoses Diagnosis Retained ureteral stent of transplanted kidney (CMS-HCC)- Primary Cirrhosis of liver with ascites, unspecified hepatic cirrhosis type (CMS-HCC) documented in this encounter Administered Medications Inactive Administered Medications - up to 3 most recent administrations Medication Order MAR Action Action Date Dose Rate Site lidocaine HCL (XYLOCAINE) 2 % JelP 10 mL 10 mL, Mucous Membrane, Once, On Sun11/25/24 at 0900, For 1 doseIndications:Retained ureteral stent of transplanted kidney (CMS-HCC) Given 11/25/2024 9:19 AM EDT 10 mLs documented in this encounter Additional Health Concerns Infection Onset Date Last Indicated Resolved Time 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
--- OUTSIDE RECORDS SUMMARY | 2024-11-25 10:20 | XMS_ITS | Encounter Summary ---
Author Organization [facility] Address [address] [place] [address] Care Team Providers Care Tobacco Checkout Clerk Name Role Phone Enedina Mcguire NP Primary Care Provider + [phone] Alicia Rankin RN Unavailable Unavail able Source [...] release of HIV test results or diagnoses. [id number] Reason for Visit * Reason Comments Liver Transplant Follow-up Encounter Details Date Type Department Care Team (Late st Contact Info) Description 11/25/2024 10:20 AM EDT Office Visit [facility] Liver Transplant at [place] [address] [place] [address] Lydia Sanchez MD [address] [place] [address] Liver/[place] [address] Encounter for therapeutic drug monitoring [...] the past 12 months has th e [employer], [employer], oil, or water company threatened to shut [...] torsemide to 10 mg daily - Wound: ael in place - Caprini score 10 - eliquis 30 days from start date: 11/25/2024 - Psychosocial: Patient w/ h/o alcohol abuse. - Pain: high narcotic requirement. Discharged on 2 mg dilaudid q6h. - Nutrition: patient continues close f/u w/ transplant internal medicine nurse practitioner. - Bone health: Vit D level to be drawn ~POD#90. - Labs: Labs (CBC w/ diff, renal panel, liver panel, tacro level) twice a week. Lipid panel, [id number] Vit D level to be drawn at POD#90, HgbA1C and Vit D level to be drawn at POD#180. - Follow up: RTC 2 weeks Trinidad Godinez MD, Fellow, Multiorgan Abdominal Transplant Surgery. [facility]. [1] Allergies Allergen Reactions Adhesive Itching [...] per week. Follow up in 2 weeks. [place] out today. Stop fluconazole, eliquis, and torsemide. [...] [facility] [address] [place] [phone] Chris Orosco MD [address] [place] [phone] 12/05/2024 8:01 AM EDT - 12/05/2024 8:31 AM EDT Surgery [facility] ENDOSCOPY [address] [place] [phone] Chris Orosco MD [address] [place] [phone] EGD Scheduled Procedures Name Priority Associated Diagnoses Date/Ti me EGD Cirrhosis of liver with ascites, unspecified hepatic cirrhosis type (CMS-HCC) 12/05/2024 8:01 AM EDT documented as of this encounter Visit Diagnoses Diagnosis Encounter for therapeutic drug monitoring- Primary S/P liver transplant (CMS-HCC) Hypomagnesemia Disorders of magnesium metabolism Kidney transplant recipient Hypertension, unspecified type Gastroesophageal reflux disease, unspecified whether esophagitis present Abdominal pain, unspecified abdominal location Cirrhosis of liver with ascites, unspecified hepatic cirrhosis type (CMS-HCC) documented in this encounter Additional Health Concerns Infection Onset Date Last Indicated Resolved Time 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
--- OUTSIDE RECORDS SUMMARY | 2024-11-25 10:50 | XMS_ITS | Encounter Summary ---
Author Organization [facility] Address [address] [place] [address] Care Team Providers Care Gang Drill Operator Name Role Phone Enedina Mcguire NP Primary Care Provider [phone] Maureen Pantoja RN Unavailable Unavail able Source [...] release of HIV test results or diagnoses. [id number] Reason for Visit * Reason Comments Liver Transplant Follow-up Encounter Details Date Type Department Care Team (Late st Contact Info) Description 11/25/2024 10:50 AM EDT Office Visit [facility] Liver Transplant at [place] [place] [address] Leisa Juarez MD [address] [place] [address] 2nd [place] [address] Jessica Colon [facility] [address] [place] [address] Social History Tobacco Use Types [...] past 12 months has th e [employer], [employer], [employer], or water [employer] threatened to shut off services in your [...] 10:39 AM EDT documented in this encounter Plan of Treatment Upcoming Encounters Date Type Department Care Team (Late st Contact Info) Description 12/05/2024 8:01 AM EDT Hospital Encounter [facility] ENDOSCOPY [address] [place] [address] Chris Orosco MD [address] [place] [phone] 12/05/2024 8:01 AM EDT - 12/05/2024 8:31 AM EDT Surgery [facility] ENDOSCOPY [address] [place] [id number] Chris Orosco MD [address] [place] [address] EGD Scheduled Procedures Name Priority Associated Diagnoses Date/Ti me EGD Cirrhosis of liver with ascites, unspecified hepatic cirrhosis type ([facility]) 12/05/2024 8:01 AM EDT documented as of this encounter Visit Diagnoses Not on filedocumented in this encounter Additional Health Concerns Infection Onset Date Last Indicated Resolved 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
--- OUTSIDE RECORDS SUMMARY | 2024-11-27 07:50 | XMS_ITS | Encounter Summary ---
Author Organization [facility] Address [address] [place] [address] Care Team Providers Care Automobile Carpets Molder Name Role Phone Enedina Mcguire NP Primary Care Provider + [phone] Maureen Pantoja RN Unavailable Unavail able Source [...] release of HIV test results or diagnoses. [id number] Reason for Visit * Reason Comments Medication Management Requesting RX for New Medication Encounter Details Date Type Department Care Team (Late st Contact Info) Description 10/21/2024 Telephone [facility] G[facility]enterology at [facility] [address] [place] [address] Gerri Peterson MD [address] [place] [address] Medication Management (Requesting RX for [...] In the past 12 months has th [employer], oil, or [employer] [place] threatened to shut off services in your [...] Vilchis RN documented as of this encounter Miscellaneous Notes [...] out of town and was advised by hydro plant site manager in office to contact gastro MD to obtain Rx. Pt states he is retaining 30 pounds of fluid and needs MD to send a prescription or return call dali. Pt can be reached at [phone] documented in this encounter Plan of Treatment Upcoming Encounters Date Type Department Care Team (Late st Contact Info) Description 12/05/2024 8:01 AM EDT Hospital Encounter [facility] ENDOSCOPY [address] [place] [address] Chris Orosco MD [address] [place] [address] 12/05/2024 8:01 AM EDT - 12/05/2024 8:31 AM EDT Surgery [facility] ENDOSCOPY [address] [place] [address] Chris Orosco MD [address] [place] [address] EGD Scheduled Procedures Name Priority [...] documented as of this encounter Care Teams Automobile Carpets Molder Relationship Specialty Start Date End Date Enedina Mcguire NP [address] [place] [address] PCP - General Internal Medicine 10/05/24 Maureen Pantoja, ЮЛИЯ Txp Post Coordinator Transplant Hepatology 10/28/24 documented as of this encounter
--- OUTSIDE RECORDS SUMMARY | 2024-11-27 07:50 | XMS_ITS | Encounter Summary ---
Author Organization [facility] Address [address] [place] [address] Care Team Providers Care Sheet Heater Helper Name Role Phone Jony Conde MD Primary Care Provider [phone] Lj Tapia DAIRY CLERK Unavailable [phone] Enedina Mcguire DAIRY CLERK Primary Care Provider + Nuria Fall WALL ATTENDANT Unavailable Unavaila ble Encounter Details Date Type Department Care Team (Late Contact Info) Description 07/03/2022 Orders Only External Location [address] [place] [address] Presley Montes De Oca MD [address] [id number] Social History Tobacco Use Types Packs/Day Years [...] 2:20 PM EDT Office Visit [facility] Nephrology, Bone & Mineral Metabolism [address] [facility] [place] [address] Yovanny Curran MD [address] [facility] [address] [place] [address] 01/08/2025 3:20 PM EDT Office Visit [facility] [place] [address] [facility] [place] [address] Vincent Braga MD [address] [place] [address] documented as of this encounter [...] on filedocumented in this encounter Care Teams Sheet Heater Helper Relationship Specialty Start Date End Date Jony Conde MD [address] [place] [address] [address] [place] [address] PCP - General 07/18/22 12/03/22 Enedina Mcguire APRN [address] [place] [address] PCP - General 12/04/22 Lj Tapia APRN [address] [place] [address] Referring Physician Gastroenterology 07/18/22 Nuria Fall LPN [facility] TCM Nurse 07/24/24 08/23/24 documented as of this encounter
--- OUTSIDE RECORDS SUMMARY | 2024-11-27 07:50 | XMS_ITS | Encounter Summary ---
Author Organization [facility] Address [address] [place] [address] Care Team Providers Care Auger Operator Name Role Phone Enedina Mcguire NP Primary Care Provider + [phone] Maureen Pantoja RN Unavailable Unavail able Source [...] release of HIV test results or diagnoses. [id number] Health Encounter Details Date Type Department Care Team (Late st Contact Info) Description 11/10/2024 Orders Only [facility] Liver Transplant at [address] [place] [address] Maureen Pantoja, ЮЛИЯ Liver transplant recipient ([facility]) (Primary Dx); Kidney transplant recipient; Immunosuppressive management encounter following liver transplant ([facility]) Social History Tobacco Use Types Packs/Day Years Used Date Smoking Tobacco: Former Cigarettes Smokeless Tobacco: Current Alcohol Use Standard Drinks/Week Comments Yes 0 (1 standard drink = 0.6 oz pure alcohol) History of alcohol abuse, reports no use in 3 week- typically endorses use as 4 glasses of wine a days Utilities Answer Date Recorded In the past 12 months has [employer], gas, oil, or water [employer] threatened to shut off services in [...] 12/05/2024 8:01 AM EDT Hospital Encounter [facility] ENDOSCOPY [address] [place] [address] Chris Orosco MD [address] [place] [address] 12/05/2024 8:01 AM EDT - 12/05/2024 8:31 AM EDT Surgery [facility] ENDOSCOPY [address] [place] [address] Chris Orosco MD [address] [place] [address] EGD Scheduled Procedures Name Priority Associated Diagnoses [...] documented as of this encounter Care Teams Auger Operator Relationship Specialty Start Date End Date Enedina Mcguire NP [address] [place] [address] PCP - General Internal Medicine 10/05/24 Maureen Pantoja, ЮЛИЯ Txp Post Coordinator Transplant Hepatology 10/28/24 documented as of this encounter
--- OUTSIDE RECORDS SUMMARY | 2024-11-27 07:50 | XMS_ITS | Encounter Summary ---
Author Organization [facility] Address [address] [place] [address] Care Team Providers Care Career Services Manager Name Role Phone Enedina Mcguire NP Primary Care Provider [phone] Source Comments This information has been disclosed [...] release of HIV test results or diagnoses. [id number] Encounter Details Date Type Department Care Team (Late st Contact Info) Description 10/17/2024 Chart Note [facility] Kidney Transplant at [address] [place] [address] Anny Cote RN Social History Tobacco Use [...] Recorded In the past 12 months has [employer], gas, oil, or water [employer] threatened to shut off services in your [...] Encounter [facility] ENDOSCOPY [address] [place] [address] Chris Orosco MD [address] [place] [address] 12/05/2024 8:01 AM EDT - 12/05/2024 8:31 AM EDT Surgery [facility] ENDOSCOPY [address] [place] [address] Chris Orosco MD [address] [place] [address] EGD Scheduled Procedures Name Priority Associated Diagnoses Date/Ti me EGD Cirrhosis of liver with ascites, unspecified hepatic cirrhosis type ([facility]) 12/05/2024 8:01 AM EDT documented as of this encounter Visit Diagnoses Not on filedocumented in this encounter Additional Health Concerns Infection Onset Date Last Indicated Resolved Time C. difficile 09/09/2024 09/09/2024 10/27/2024 8:30 AM EDT Assessment Noted Time PHQ-9 Depression Total Score: 17 05/ 025 11:00 AM EDT documented as of this encounter Care Teams Career Services Manager Relationship Specialty Start Date End Date Enedina Mcguire NP [address] [place] [address] PCP - General Internal Medicine 10/05/24 documented as of this encounter
--- OUTSIDE RECORDS SUMMARY | 2024-11-27 07:50 | XMS_ITS | Encounter Summary ---
Author Organization Healthcare Address [address] [place] [address] Care Team Providers Care Stucco Mason Name Role Phone Regina, Lj Nova APRN Unavailable [phone] Enedina Mcguire APRN Primary Care Provider + Encounter Details Date Type Department Care Team ([facility] st Contact Info) Description 09/25/2024 Telephone [facility] Nephrology, Bone & Mineral Metabolism [address] [facility], [address] [place] [address] Chelsy Villanueva Social History Tobacco [...] often do you attend chur ch or church services? Patient unable to answer [...] 2 09/29/2024 [facility] - Occupational Stress Questionnaire Answer Date [...] in a fci (including now)? No 11/19/2023 PHQ-9 Answer Date [...] drink first t deborah in the morning (EYE-FOUR CORNER FORMER MACHINE OPERATOR) to steady your nerves or to [...] 10:35 AM EDT Lab order faxed to [facility] at [phone] * Telephone Encounter - Shelby Rush - 09/30/2024 10:16 AM EDT Clinical Concern/Question Reason for Call: Per [facility] please fax patient's lab order to: [phone] Best contact number: Other: [phone] Optimal time of day to reach caller: [...] Metabolism [address], [address] [place] [address] Yovanny Curran MD [address] [place] [address] 01/08/2025 3:20 PM EDT [facility] [address], [address] [place] [address] Vincent Braga MD [address] [place] [address] documented as of this encounter Visit Diagnoses Not on filedocumented in this encounter Additional Health Concerns Assessment Noted Time A fall risk assessment has been complete d for the patient 08/25/2024 2:07 PM EDT A Body Mass Index follow-up plan has been documented for the patient 08/29/2024 9:18 AM EDT documented as of this encounter Care Teams Stucco Mason Relationship Specialty Start Date End Date Enedina Mcguire APRN [address] [place] [address] PCP - General 12/04/22 Lj Tapia APRN [address] [place] [address] Referring Physician Gastroenterology 07/18/22 documented as of this encounter
--- OUTSIDE RECORDS SUMMARY | 2024-11-27 07:50 | XMS_ITS | Encounter Summary ---
Author Organization Healthcare Address [address] [place] [address] Care Team Providers Care Requirements Engineer Name Role Phone Jony Conde MD Primary Care Provider [phone] Lj Tapia OUTSIDE SALES CONSULTANT Unavailable [phone] Enedina Mcguire OUTSIDE SALES CONSULTANT Primary Care Provider + Nuria Fall TOOL MARKER Unavailable Unavaila ble Encounter Details Date Type Department Care Team (Late Contact Info) Description 07/04/2022 Orders Only External Location [address] [place] [address] Presley Montes De Oca MD [address] [facility] [address] [place] [id number] Social History Tobacco Use Types Packs/Day Years [...] 12/01/2024 2:20 PM EDT Office Visit [facility] Nephrology, Bone & Mineral Metabolism [address] [facility], [address] [place] [address] Yovanny Curran MD [address] [facility] [address] [place] [address] 01/08/2025 3:20 PM EDT [facility] [place] [address] [facility], [address] [place] [address] Vincent Braga MD [address] [place] [address] documented as of this encounter [...] on filedocumented in this encounter Care Teams Requirements Engineer Relationship Specialty Start Date End Date Jony Conde MD [address] [place] [address] [address] [place] [address] PCP - General 07/18/22 12/03/22 Enedian Mcguire APRN [address] [place], [place] [id number] PCP - General 12/04/22 Lj Tapia APRN [address] [place] [address] Referring Physician Gastroenterology 07/18/22 Nuria Fall LPN [facility] TCM Nurse 07/24/24 08/23/24 documented as of this encounter
--- OUTSIDE RECORDS SUMMARY | 2024-11-27 07:50 | XMS_ITS | Encounter Summary ---
Author Organization [facility] Address [address] [place] [address] Care Team Providers Care Insole Tape Stitcher Uco Name Role Phone ReginaLj dixon Rohini RICKS Unavailable [phone] Enedina Mcguire APRN Primary Care Provider + [...] How often do you attend chur or faith services? Patient unable to answer 07/14/2024 Do [...] Recorded Patient Health Questionnaire-2 Score 2 09/29/2024 [facility] [...] drink first t deborah in the morning (EYE-HEALTH CARE LIAISON) to steady your nerves or to get [...] Description 12/01/2024 2:20 PM EDT Office Visit [facility] Nephrology, Bone & Mineral Metabolism [address] [facility], [address] [place] [address] Yovanny Curran MD [address] [place] [address] 01/08/2025 3:20 PM EDT [facility] [place] [address] [facility], [address] [place] [address] Vincent Braga MD [address] [place] [address] documented as of this encounter [...] documented as of this encounter Care Teams Insole Tape Stitcher Uco Relationship Specialty Start Date End Date Enedina Mcguire APRN [address] [place] [address] PCP - General 12/04/22 Lj Tapia APRN [address] [place] [address] Referring Physician Gastroenterology 07/18/22 documented as of this encounter
--- OUTSIDE RECORDS SUMMARY | 2024-11-27 07:50 | XMS_ITS | Encounter Summary ---
Author Organization [facility] Address [address] [place] [address] Care Team Providers Care Fish Checker Name Role Phone Enedina Mcguire NP Primary Care Provider + [phone] Maureen Pantoja RN Unavailable Unavail able Source [...] release of HIV test results or diagnoses. [id number] Reason for Visit * Reason Comments Medication Refill Refill Request 1st A ttempt Encounter Details Date Type Department Care Team (Late st Contact Info) Description 10/21/2024 Refill [facility] Gastroenterology at [facility] Office [address] [place] [address] Gerri Peterson MD [address] [place] [address] Social History Tobacco Use Types Packs/Day Years Used Date Smoking Tobacco: Former Cigarettes Smokeless Tobacco: Current Alcohol Use Standard Drinks/Week Comments Yes 0 (1 standard drink = 0.6 oz pure alcohol) History of alcohol abuse, reports no use in 3 week- typically endorses use as 4 glasses of wine a days Utilities Answer Date Recorded In the past 12 months has [employer], gas, oil, or water [employer] threatened to shut off services in your [...] Description 12/05/2024 8:01 AM EDT Hospital Encounter [facility] ENDOSCOPY [address] [place] [address] Chris Orosco MD [address] [place] [address] 12/05/2024 8:01 AM EDT - 12/05/2024 8:31 AM EDT Surgery [facility] ENDOSCOPY [address] [place] [address] Chris Orosco MD [address] [place] [phone] EGD Scheduled Procedures Name Priority Associated Diagnoses [...] documented as of this encounter Care Teams Fish Checker Relationship Specialty Start Date End Date Enedina Mcguire NP [address] [place] [address] PCP - General Internal Medicine 10/05/24 Maureen Pantoja, ЮЛИЯ Txp Post Coordinator Transplant Hepatology 10/28/24 documented as of this encounter
--- OUTSIDE RECORDS SUMMARY | 2024-11-27 07:50 | XMS_ITS | Encounter Summary ---
Author Organization Healthcare Address [address] [place] [address] Care Team Providers Care Head Track Coach Name Role Phone Jony Conde MD Primary Care Provider [phone] Lj Tapia DOT NET DEVELOPER Unavailable [phone] Enedina Mcguire DOT NET DEVELOPER Primary Care Provider + Nuria Fall BEHAVIORAL TECHNICIAN Unavailable Unavaila ble Encounter Details Date Type Department Care Team (Late Contact Info) Description 07/02/2022 Orders Only External Location [address] [place] [address] Provider, External Social History Tobacco Use Types [...] 2:20 PM EDT Office Visit [facility] Nephrology, Bone & Mineral Metabolism [address] [place] [address] Yovanny Curran MD [address] [place] [address] 01/08/2025 3:20 PM EDT Office [facility] [address] [place] [address] Vincent Braga MD [address] [place] [address] documented as of this encounter Procedures Procedure [...] on filedocumented in this encounter Care Teams Head Track Coach Relationship Specialty Start Date End Date Jony Conde MD [address] [place] [address] [address] [place] [address] PCP - General 07/18/22 12/03/22 Enedina Mcguire APRN [address] [place] [address] PCP - General 12/04/22 Lj Tapia APRN [address] [place] [address] Referring Physician Gastroenterology 07/18/22 Nuria Fall LPN [facility] TCM Nurse 07/24/24 08/23/24 documented as of this encounter
--- OUTSIDE RECORDS SUMMARY | 2024-11-27 07:50 | XMS_ITS | Clinical Summary ---
Author Organization Healthcare Address [address] [place] [address] Care Team Providers Care Chair Upholsterer Name Role Phone Lj Tapia Rohini RICKS Unavailable [phone] Enedina Mcguire APRN Primary Care Provider + [...] abuse 12/03/2022 Esophageal varices in cirrhosis 12/03/2022 NDAIYA (acute kidney injury) 08/30/2022 GI (gastrointestinal bleed) 06/14/2022 Encounters Date Type Department Care Team Description 09/29/2024 2:20 PM EDT Office Visit [facility] Nephrology, Bone & Mineral Metabolism [address] [facility], [address] [place] [address] Yovanny Flores MD NADIYA (acute kidney injury) (CMS/HCC) (Primary Dx); Portal hypertension (CMS/HCC); Secondary esophageal varices with bleeding (CMS/HCC) 09/29/2024 Travel 09/25/2024 Telephone [facility] Nephrology, Bone & Mineral Metabolism [address] [facility], [address] [place] [address] Chelsy Villanueva from Last 3 [...] do you attend [facility] or [facility] services? Patient unable to answer [...] drink first t deborah in the morning (EYE-LOSS PREVENTION COORDINATOR) to steady your nerves or to get rid of a hangover? 0 07/19/2024 CAGE Questionnaire Score 2 025 Utilities Answer Date Recorded In the past 12 months has e Your Policy Manager, gas, oil, or water [employer] threatened to shut off services in your [...] Description 12/01/2024 2:20 PM EDT Office Visit [facility] [place] Nephrology, Bone & Mineral Metabolism [address], [address] [place] [address] Yovanny Curran MD [address] [place] [address] 01/08/2025 3:20 PM EDT [facility] [address], [address] [place] [address] Vincent Braga MD [address] [place] [address] Health Maintenance Due Date Last [...] 2 - 13+ 2-dose series) 10/11/2010 09/13/2010 [id number] Vaccine ( season) 2024 03/17/2021, 07/25/2020, 06/27/2020 UKY-Influenza Vaccine [...] this topic Medical Devices Implanted Type Area Ship Engines Operating Engineer Device Identifier Shelf Expiration Date Model / Serial / Lot Concerto Bow Coil-07/03/2022 Implanted:06/15 by Timmy Brunner MD (Quantity not on file) Coil Abdomen Description:Multiple Coil Co ncerto Pgla Bow Detach COILS implanted on 07/03/2022 by Timmy Brunner MD at [facility]--info can be found in Care Everywhere for [facility] as of 11/15/23 Dona Coil-07/03/2022 Implanted:06/15 by Timmy Brunner MD (Quantity not on file) Coil Abdomen [employer] Description:Coil Emb Dona 3.7/Implanted: Qty: 1 on 07/03/2022 by Timmy Brunner MD at [facility] Plate Plate N/A: Neck Plug Vasc Anton Emb Amplatzer Implanted:06/15 by Timmy Brunner MD (Quantity not on file) Plug Other Vein / / [id number] Description:Plug Vasc Anton Em b Ampltz .027 [id number] - [id number] Implanted: Qty: 1 on 07/03/2022 by Timmy Brunner MD at [facility] Stent Gastro Panc 5fr 5cm - [id number] Implanted:Qty: 1 on 11/20/2023 by Devang Mcghee RN at [facility] Pancreas [employer]-[id number] 08/13/2026 [id number] / / [id number] Procedures Procedure Name Priority Date/Time Associated Diagnosis [...] 4:31 PM EST 07/14/2024 4:56 PM EST us Laureano Salinas FORESTRY BIOLOGY SPECIALIST, DNP LAB BLOOD ORDERA BLES Final Result [facility] [address] [place] [address] * Hepatitis C Antibody (07/14/2024 4:31 PM EST) Hepatitis C Antibody Negative Negative 07/14/2024 5:27 PM EST [facility] Blood Venous blood specimen / Unknown Venipuncture / Unknown 07/14/2024 4:31 PM EST 07/14/2024 4:54 PM EST Laureano Salinas APRN, DNP LAB BLOOD ORDERA BLES Final Result Performing Organization Address City/State/[facility] Co de Phone Number HEALTHCARE LAB [address] [place] [address] from Last 3 Months or Most Recently Relevant to Health Maintenance Insurance [facility] Advance Directives * Full Code (Latest Code Status on File) Date Activated Date Inactivated Comments 07/11/2024 11:04 PM 07/23/2024 6:27 PM Question Answer Comments Patient has decision-making capacity? Yes * Full Code Date Activated Date Inactivated Comments 11/14/2023 10:15 PM 11/27/2023 9:08 PM Question Answer Comments Patient has decision-making capacity? Yes Care Teams Chair Upholsterer Relationship Specialty Start Date End Date Enedina Mcguire APRN [address] [place] [address] PCP - General 12/04/22 Lj Tapia APRN [address] [place] [address] Referring Physician Gastroenterology 07/18/22
--- OUTSIDE RECORDS SUMMARY | 2024-11-27 07:50 | XMS_ITS | Encounter Summary ---
Author Organization Healthcare Address [address] [place] [address] Care Team Providers Care Fios Line Installer Name Role Phone Jony Conde MD Primary Care Provider [phone] Lj Tapia CORPORATE DIRECTOR OF HUMAN RESOURCES Unavailable [phone] Enedina Mcguire CORPORATE DIRECTOR OF HUMAN RESOURCES Primary Care Provider + Nuria Fall CAR CUSTOMIZER Unavailable Unavaila ble Encounter Details Date Type Department Care Team (Late Contact Info) Description 07/04/2022 Orders Only External Location [address] [place] [address] Presley Montes De Oca MD [address] [facility] [address] [place] [id number] Social History Tobacco Use Types Packs/Day Years [...] 12/01/2024 2:20 PM EDT Office Visit [facility] Nephrology, Bone & Mineral Metabolism [address] [facility], [address] [place] [address] Yovanny Curran MD [address] [facility] [address] [place] [address] 01/08/2025 3:20 PM EDT Office Visit [facility] [place] [address] [facility], [address] [place] [address] Vincent Braga MD [address] [place] [address] documented as of this encounter [...] on filedocumented in this encounter Care Teams Fios Line Installer Relationship Specialty Start Date End Date Jony Conde MD [address] [place] [address] [address] [place] [address] PCP - General 07/18/22 12/03/22 Enedina Mcguire APRN [address] [place], [place] [id number] PCP - General 12/04/22 Lj Tapia APRN [address] [place] [address] Referring Physician Gastroenterology 07/18/22 Nuria Fall LPN [facility] TCM Nurse 07/24/24 08/23/24 documented as of this encounter
--- OUTSIDE RECORDS SUMMARY | 2024-11-27 07:51 | XMS_ITS | Encounter Summary ---
Author Organization [facility] Address [address] [place] [address] Care Team Providers Care Clothes Drier Assembler Name Role Phone Enedina Mcguire NP Primary Care Provider [phone] Source Comments This information has been disclosed [...] release of HIV test results or diagnoses. [id number] Encounter Details Date Type Department Care Team (Late st Contact Info) Description 10/20/2024 Telephone [facility] Liver Transplant at [address] [address] Mary Butler, RN Social History Tobacco Use [...] Recorded In the past 12 months has Versie Christian Companion, gas, oil, or water [employer] threatened to shut off services in your [...] Hep C donors. He'll also go to [facility] later today vs tomorrow morning for follow up MELD labs that I'll need in order to list him. All questions answered at this time. Lab orders faxed to [facility] at [phone] and emailed to patient. documented in this encounter Plan of Treatment Upcoming Encounters Date Type Department Care Team (Late st Contact Info) Description 12/05/2024 8:01 AM EDT Hospital Encounter [facility] ENDOSCOPY [address] [place] [address] Chris Orosco MD [address] [place] [phone] 12/05/2024 8:01 AM EDT - 12/05/2024 8:31 AM EDT Surgery [facility] ENDOSCOPY [address] [place] [address] Chris Orosco MD [address] [place] [address] EGD Scheduled Procedures Name Priority Associated Diagnoses [...] documented as of this encounter Care Teams Clothes Drier Assembler Relationship Specialty Start Date End Date Enedina Mcguire NP [address] [place] [address] PCP - General Internal Medicine 10/05/24 documented as of this encounter
--- OUTSIDE RECORDS SUMMARY | 2024-11-27 07:51 | XMS_ITS | Encounter Summary ---
Author Organization [facility] Address [facility] [place] [address] Care Team Providers Care Hands Parter Name Role Phone Enedina Mcguire NP Primary Care Provider + [phone] Maureen Pantoja RN Unavailable Unavail able Source [...] release of HIV test results or diagnoses. [id number] Reason for Visit * Reason Comments After Hours Call Passing blood throug h stool states started this morning has had 3 bloody bowel movements kidney and liver txp done 2 weeks ago Encounter Details Date Type Department Care Team (Late st Contact Info) Description 11/09/2024 Telephone [facility]IENT SERVICES [address] [place] [address] Unknown, Attending Provider After Hours [...] Recorded In the past 12 months has [employer], gas, oil, or water [employer] threatened to shut off services in your [...] Caller to Patient and Callback: dionna anderson [phone] Patient of: liver txp txp team Nature of Call: Passing blood through stool states started this morning has had 3 bloody bowel movements kidney and liver txp done 2 weeks ago House Shorer Provider Contacted: del turner Time and Method [...] Encounter [facility] ENDOSCOPY [address] [place] [address] Chris Orosco MD [address] [place] [address] 12/05/2024 8:01 AM EDT - 12/05/2024 8:31 AM EDT Surgery [facility] ENDOSCOPY [address] [place] [address] Chris Orosco MD [address] [place] [address] EGD Scheduled Procedures Name Priority Associated Diagnoses [...] documented as of this encounter Care Teams Hands Parter Relationship Specialty Start Date End Date Enedina Mcguire NP [address] [place] [address] PCP - General Internal Medicine 10/05/24 Maureen Pantoja, RN Txp Post Coordinator Transplant Hepatology 10/28/24 documented as of this encounter
--- OUTSIDE RECORDS SUMMARY | 2024-11-27 07:51 | XMS_ITS | Encounter Summary ---
Author Organization [facility] Address [address] [place] [address] Care Team Providers Care Ticketer Name Role Phone Enedina Mcguire NP Primary Care Provider + [phone] Maureen Pantoja RN Unavailable Unavail able Source [...] release of HIV test results or diagnoses. [id number] Health Encounter Details Date Type Department Care Team (Late st Contact Info) Description 11/07/2024 Chart Note [facility] Liver Transplant at [address] [place] [address] Marlene Ro MA FK Pending Social History [...] Recorded In the past 12 months has [employer], gas, oil, or water [employer] threatened to shut off services in your [...] Encounter [facility] ENDOSCOPY [address] [place] [address] Chris Orosco MD [address] [place] [address] 12/05/2024 8:01 AM EDT - 12/05/2024 8:[address] [facility] ENDOSCOPY [address] [place] [address] Chris Orosco MD [address] [place] [address] EGD Scheduled Procedures Name Priority Associated Diagnoses [...] 9.9 6 - 15 ng/mL Whole Blood [facility] Provider MD LAB BLOOD ORDERABLES Denisse l Result * (ABNORMAL) Renal Function Panel w/o EGFR (11/06/2024 8:36 AM EDT) [facility] Glucose 108 mg/dL BUN 35(A) 4 [...] 5.0 g/dL Blood Narrative Resulting Agency Comment [facility] Provider MD LAB BLOOD ORDERABLES Denisse l Result * (ABNORMAL) CBC and differential (11/06/2024 8:36 AM EDT) [facility] Hemoglobin 9.3(A) 13.5 - 17.5 g/dL [...] 7.5 10^3/mL Blood Narrative Resulting Agency Comment [facility] Historical Provider LAB BLOOD ORDERABLES Denisse l Result * (ABNORMAL) Hepatic Function Panel (11/06/2024 8:36 AM EDT) Bilirubin, Direct 0.7 Bilirubin, Indirect 0.2 Alkaline Phosphatase 142 U/L ALT 59 U/L AST 24 U/L Total Bilirubin 0.9 0.1 - 1.4 mg/dL Total Protein 5.4(A) 6.4 - 8.2 g/dL Plasma Narrative Resulting Agency Comment [facility] Historical Provider LAB BLOOD ORDERABLES Denisse l Result documented in this encounter Visit Diagnoses Not on filedocumented in this encounter Additional Health Concerns Infection Onset Date Last Indicated Resolved Time 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
--- OUTSIDE RECORDS SUMMARY | 2024-11-27 07:51 | XMS_ITS | Encounter Summary ---
Author Organization [facility] Address [address] [place] [address] Care Team Providers Care Hoist Operator Name Role Phone Enedina Mcguire NP Primary Care Provider + [phone] Maureen Pantoja RN Unavailable Unavail able Source [...] release of HIV test results or diagnoses. [id number] Health Encounter Details Date Type Department Care Team (Late st Contact Info) Description 11/07/2024 Telephone [facility] Liver Transplant at [address] [address] Marlene Ro MA Social History [...] Recorded In the past 12 months has [employer], gas, oil, or water Social [employer] threatened to shut off services in your [...] 12/05/2024 8:01 AM EDT Hospital Encounter [facility] ENDOSCOPY [address] [place] [address] Chris Orosco MD [address] [place] [address] 12/05/2024 8:01 AM EDT - 12/05/2024 8:31 AM EDT Surgery [facility] ENDOSCOPY [address] [place] [address] Chris Orosco MD [address] [place] [address] EGD Scheduled Procedures Name Priority Associated Diagnoses [...] documented as of this encounter Care Teams Hoist Operator Relationship Specialty Start Date End Date Enedina Mcguire NP [address] [place] [address] PCP - General Internal Medicine 10/05/24 Maureen Pantoja, RN Txp Post Coordinator Transplant Hepatology 10/28/24 documented as of this encounter
--- OUTSIDE RECORDS SUMMARY | 2024-11-27 07:51 | XMS_ITS | Encounter Summary ---
Author Organization [facility] Address [address] [place] [address] Care Team Providers Care Motorcycle Police Name Role Phone Enedina Mcguire NP Primary Care Provider + [phone] Maureen Pantoja RN Unavailable Unavail able Source [...] release of HIV test results or diagnoses. [id number] Health Encounter Details Date Type Department Care Team (Late st Contact Info) Description 11/10/2024 Orders Only [facility] Liver Transplant at [address] [place] [address] Maureen Pantoja, RN Social History Tobacco Use [...] Recorded In the past 12 months has [employer], gas, oil, or water [employer] threatened to shut off services in your [...] [facility] ENDOSCOPY [address] [place] [address] Chris Orosco MD [address] [place] [phone] 12/05/2024 8:01 AM EDT - 12/05/2024 8:31 AM EDT Surgery [facility] ENDOSCOPY [address] [place] [address] Chris Orosco MD [address] [place] [phone] EGD Scheduled Procedures Name Priority Associated Diagnoses Date/Ti me EGD Cirrhosis of liver with ascites, unspecified hepatic cirrhosis type ([facility]) 12/05/2024 8:01 AM EDT documented as of this encounter Visit Diagnoses Not on filedocumented in this encounter Additional Health Concerns Infection Onset Date Last Indicated 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
--- OUTSIDE RECORDS SUMMARY | 2024-11-27 07:51 | XMS_ITS | Encounter Summary ---
Author Organization [facility] Address [address] [place] [address] Care Team Providers Care Data Entry Associate Name Role Phone Enedina Mcguire NP Primary Care Provider [phone] Source Comments This information has been disclosed [...] release of HIV test results or diagnoses. [id number] Encounter Details Date Type Department Care Team (Late st Contact Info) Description 10/17/2024 Chart Note [facility] Kidney Transplant at [address] [place] [address] Anny Cote, RN Copy of HLA [...] In the past 12 months has e [employer], gas, oil, or water [employer] threatened to shut off services in your [...] Encounter [facility] ENDOSCOPY [address] [place] [address] Chris Orosco MD [address] [place] [phone] 12/05/2024 8:01 AM EDT - 12/05/2024 8:[address] [facility] ENDOSCOPY [address] [place] [address] Chris Orosco MD [address] [place] [phone] EGD Scheduled Procedures Name Priority Associated Diagnoses [...] as of this encounter Care Teams Data Entry Associate Relationship Specialty Start Date End Date Enedina Mcguire NP [address] [place] [address] PCP - General Internal Medicine 10/05/24 documented as of this encounter
--- OUTSIDE RECORDS SUMMARY | 2024-11-27 07:51 | XMS_ITS | Encounter Summary ---
Author Organization [facility] Address [address] [place] [address] Care Team Providers Care Hay Sorter Name Role Phone Enedina Mcguire NP Primary Care Provider + [phone] Maureen Pantoja RN Unavailable Unavail able Source [...] release of HIV test results or diagnoses. [id number] Reason for Visit * Reason Comments Medication Refill Refill Request 1st A ttempt Encounter Details Date Type Department Care Team (Late st Contact Info) Description 10/20/[address] [facility] Gastroenterology at [facility] Office [address] [place] [phone] Gerri [place] MD [address] [place] [address] Social History Tobacco Use Types Packs/Day Years Used Date Smoking Tobacco: Former Cigarettes Smokeless Tobacco: Current Alcohol Use Standard Drinks/Week Comments Yes 0 (1 standard drink = 0.6 oz pure alcohol) History of alcohol abuse, reports no use in 3 week- typically endorses use as 4 glasses of wine a days Utilities Answer Date Recorded In the past 12 months has [employer], gas, oil, or water [employer] threatened to shut off services in your [...] not drink 10/29/2024 10:02 PM EDT Vandana Viclhis RN Q3: How often do you have [...] need filled today. PHARMACY & PHONE #: [facility] [address] [place], [place] [id number] [address] DATE OF LAST APPT: 09/02/2024 Gerri [place] MD DATE OF NEXT APPT: 12/02/2024 GI/LIVER FELLOW 4 documented in this encounter Plan of Treatment Upcoming Encounters Date Type Department Care Team (Late st Contact Info) Description 12/05/2024 8:01 AM EDT Hospital Encounter [facility] ENDOSCOPY [address] [place] [address] Chris Orosco MD [address] [place] [phone] 12/05/2024 8:01 AM EDT - 12/05/2024 8:31 AM EDT Surgery [facility] ENDOSCOPY [address] [place] [address] Chris Orosco MD [address] [place] [phone] EGD Scheduled Procedures Name Priority Associated Diagnoses [...] Noted Time PHQ-9 Depression Total Score: 17 05 025 11:00 AM EDT documented as of this encounter Care Teams Hay Sorter Relationship Specialty Start Date End Date Enedina Mcguire NP [address] [place] [address] PCP - General Internal Medicine 10/05/24 Maureen Pantoja, RN Txp Post Coordinator Transplant Hepatology 10/28/24 documented as of this encounter
--- OUTSIDE RECORDS SUMMARY | 2024-11-27 07:51 | XMS_ITS | Encounter Summary ---
Author Organization [facility] Address [address] [place] [address] Care Team Providers Care Wave Soldering Machine Operator Name Role Phone Enedina Mcguire NP Primary Care Provider + [phone] Maureen Pantoja RN Unavailable Unavail able Source [...] release of HIV test results or diagnoses. [id number] Reason for Visit * Reason Comments Results Encounter Details Date Type Department Care Team (Late st Contact Info) Description 11/07/2024 Telephone [facility] Liver Transplant at [address] [address] Maureen Pantoja, RN Results Social [...] In the past 12 months has e [employer], gas, oil, or water [employer] threatened to shut off services in your [...] Hospital Encounter [facility] ENDOSCOPY [address] [place] [address] Chris Orosco MD [address] [place] [phone] 12/05/2024 8:01 AM EDT - 12/05/2024 8:31 AM EDT Surgery [facility] ENDOSCOPY [address] [place] [address] Chris Orosco MD [address] [place] [phone] EGD Scheduled Procedures Name Priority Associated Diagnoses Date/Ti ne EGD Cirrhosis of liver with ascites, unspecified [...] documented as of this encounter Care Teams Wave Soldering Machine Operator Relationship Specialty Start Date End Date Enedina Mcguire NP [address] [place] [address] PCP - General Internal Medicine 10/05/24 Maureen Pantoja, RN Txp Post Coordinator Transplant Hepatology 10/28/24 documented as of this encounter
--- OUTSIDE RECORDS SUMMARY | 2024-11-27 07:52 | XMS_ITS | Encounter Summary ---
Author Organization [facility] Address [address] [place] [address] Care Team Providers Care Honing Machine Operator Semiautomatic Name Role Phone Enedina Mcguire NP Primary Care Provider [phone] Source Comments This information has been disclosed [...] release of HIV test results or diagnoses. [id number] Health Encounter Details Date Type Department Care Team (Late st Contact Info) Description 10/27/2024 Chart Note [facility] Kidney Transplant at [address] [place] [phone] Karen Rosen, RN I have verified that the donor serologies entered in [facility] match the donor Social History [...] Recorded In the past 12 months has [employer], gas, oil, or water [employer] threatened to shut off services in your [...] verified that the donor serologies entered in [employer] match the donor serologies that are listed in [facility]. documented in this encounter Plan of Treatment Upcoming Encounters Date Type Department Care Team (Late st Contact Info) Description 12/05/2024 8:01 AM EDT Hospital Encounter [facility] ENDOSCOPY [address] [place] [address] Chris Orosco MD [address] [place] [address] 12/05/2024 8:01 AM EDT - 12/05/2024 8:31 AM EDT Surgery [facility] ENDOSCOPY [address] [place] [address] Chris Orosco MD [address] [place] [phone] EGD Scheduled Procedures Name Priority Associated Diagnoses [...] documented as of this encounter Care Teams Honing Machine Operator Semiautomatic Relationship Specialty Start Date End Date Enedina Mcguire NP [address] [place] [address] PCP - General Internal Medicine 10/05/24 documented as of this encounter
--- OUTSIDE RECORDS SUMMARY | 2024-11-27 07:52 | XMS_ITS | Encounter Summary ---
Author Organization [facility] Address [address] [place] [address] Care Team Providers Care Grinding And Polishing Laborer Name Role Phone Enedina Mcguire NP Primary Care Provider + [phone] Maureen Pantoja RN Unavailable Unavail able Source [...] release of HIV test results or diagnoses. [id number] Health Encounter Details Date Type Department Care Team (Late st Contact Info) Description 11/04/2024 Results Follow-Up [facility] Liver Transplant at [address] [address] Maureen Pantoja, ЮЛИЯ Tacrolimus level, Hepatic Function [...] Recorded In the past 12 months has [employer], gas, oil, or water [employer] threatened to shut off services in [...] [facility] ENDOSCOPY [address] [place] [address] Chris Orosco MD [address] [place] [address] 12/05/2024 8:01 AM EDT - 12/05/2024 8:31 AM EDT Surgery [facility] ENDOSCOPY [address] [place] [phone] Chris Orosco MD [address] [place] [phone] EGD Scheduled Procedures Name Priority Associated Diagnoses [...] documented as of this encounter Care Teams Grinding And Polishing Laborer Relationship Specialty Start Date End Date Enedina Mcguire NP [address] [place] [address] PCP - General Internal Medicine 10/05/24 Maureen Pantoja, RN Txp Post Coordinator Transplant Hepatology 10/28/24 documented as of this encounter
--- OUTSIDE RECORDS SUMMARY | 2024-11-27 07:52 | XMS_ITS | Encounter Summary ---
Author Organization [facility] Address [facility] [place] [address] Care Team Providers Care Keno Writer / Runner Name Role Phone Enedina Mcguire NP Primary Care Provider [phone] Source Comments This information has been disclosed [...] release of HIV test results or diagnoses. [id number] Health Encounter Details Date Type Department Care Team (Late st Contact Info) Description 10/20/2024 Orders Only [facility] [address] [place] [address] Abdulkadir Gaspar MD [address] [facility] [address] [place] [address] Social History Tobacco Use Types Packs/Day Years Used Date Smoking Tobacco: Former Cigarettes Smokeless Tobacco: Current Alcohol Use Standard Drinks/Week Comments Yes 0 (1 standard drink = 0.6 oz pure alcohol) History of alcohol abuse, reports no use in 3 week- typically endorses use as 4 glasses of wine a days Utilities Answer Date Recorded In the past 12 months has [employer], gas, oil, or water company threatened to [...] [facility] ENDOSCOPY [address] [place] [address] Chris Orosco MD [address] [place] [address] 12/05/2024 8:01 AM EDT - 12/05/2024 8:31 AM EDT Surgery [facility] ENDOSCOPY [address] [place] [address] Chris Orosco MD [address] [place] [address] EGD Scheduled Procedures Name Priority Associated Diagnoses [...] MD LAB BLOOD ORDERABLES Final Resul t [facility] [address] [facility] [place] [address] * [facility] - ABO Typing Report (10/20/2024 5:03 PM EDT) 10/20/2024 5:03 PM EDT us Abdulkadir Hubert ABDULLAHI LAB BLOOD ORDERABLES Final Resul t [facility] [address] [place] [address] documented in this encounter Visit Diagnoses Not on filedocumented in this encounter Additional Health Concerns Infection Onset Date Last Indicated Resolved Time C. difficile 09/09/2024 09/09/2024 10/27/2024 8:30 AM EDT Assessment Noted Time PHQ-9 Depression Total Score: 17 025 11:00 AM EDT documented as of this encounter Care Teams Keno Writer / Runner Relationship Specialty Start Date End Date Enedina Mcguire NP [address] [place] [address] PCP - General Internal Medicine 10/05/24 documented as of this encounter
--- OUTSIDE RECORDS SUMMARY | 2024-11-27 07:52 | XMS_ITS | Encounter Summary ---
Author Organization [facility] Address [address] [place] [address] Care Team Providers Care Horse Doctor Name Role Phone Enedina Mcguire NP Primary Care Provider + [phone] Maureen Pantoja RN Unavailable Unavail able Source [...] release of HIV test results or diagnoses. [id number] Reason for Visit * Reason Comments Results Encounter Details Date Type Department Care Team (Late st Contact Info) Description 11/04/2024 Telephone [facility] Liver Transplant at [address] [address] Maureen Pantoja, RN Results Social [...] In the past 12 months has e [employer], gas, oil, or water [employer] threatened to shut off services in your [...] 12/05/2024 8:01 AM EDT Hospital Encounter [facility] ENDOSCOPY [address] [place] [address] Chris Orosco MD [address] [place] [phone] 12/05/2024 8:01 AM EDT - 12/05/2024 8:31 AM EDT Surgery [facility] ENDOSCOPY [address] [place] [address] Chris Orosco MD [address] [place] [phone] EGD Scheduled Procedures Name Priority Associated Diagnoses [...] documented as of this encounter Care Teams Horse Doctor Relationship Specialty Start Date End Date Enedina Mcguire NP [address] [place] [address] PCP - General Internal Medicine 10/05/24 Maureen Pantoja, ЮЛИЯ Txp Post Coordinator Transplant Hepatology 10/28/24 documented as of this encounter
--- OUTSIDE RECORDS SUMMARY | 2024-11-27 07:52 | XMS_ITS | Encounter Summary ---
Author Organization [facility] Address [address] [place] [address] Care Team Providers Care Department Assistant Name Role Phone Enedina Mcguire NP Primary Care Provider + [phone] Maureen Pantoja RN Unavailable Unavail able Source [...] release of HIV test results or diagnoses. [id number] Health Encounter Details Date Type Department Care Team (Late st Contact Info) Description 10/27/2024 Chart Note [facility] Liver Transplant at [address] [place] [phone] Crista Power, RN I introduced myself as inpatient liver/kidney sports coordinator, Social History Tobacco Use Types Packs/Day Years Used Date Smoking Tobacco: Former Cigarettes Smokeless Tobacco: Current Alcohol Use Standard Drinks/Week Comments Yes 0 (1 standard drink = 0.6 oz pure alcohol) History of alcohol abuse, reports no use in 3 week- typically endorses use as 4 glasses of wine a days Utilities Answer Date Recorded In the past 12 months has [employer], gas, oil, or water [employer] threatened to shut off services in your [...] EDT I introduced myself as inpatient liver/kidney sports coordinator, explained role and provided my contact [...] [facility] ENDOSCOPY [address] [place] [address] Chris Orosco MD [address] [place] [phone] 12/05/2024 8:01 AM EDT - 12/05/2024 8:31 AM EDT Surgery [facility] ENDOSCOPY [address] [place] [address] Chris Orosco MD [address] [place] [phone] EGD Scheduled Procedures Name Priority Associated Diagnoses Date/Ti me EGD Cirrhosis of liver with ascites, unspecified hepatic cirrhosis type ([facility]) 12/05/2024 8:01 AM EDT documented [...] documented as of this encounter Care Teams Department Assistant Relationship Specialty Start Date End Date Enedina Mcguire NP [address] [place] [address] PCP - General Internal Medicine 10/05/24 Maureen Pantoja, ЮЛИЯ Txp Post Coordinator Transplant Hepatology 10/28/24 documented as of this encounter
--- OUTSIDE RECORDS SUMMARY | 2024-11-27 07:52 | XMS_ITS | Encounter Summary ---
Author Organization [facility] Address [address] [place] [address] Care Team Providers Care Peoplesoft Hr Developer Name Role Phone Enedina Mcguire NP Primary Care Provider + [phone] Maureen Pantoja RN Unavailable Unavail able Source [...] release of HIV test results or diagnoses. [id number] Health Encounter Details Date Type Department Care Team (Late st Contact Info) Description 11/04/2024 Social Work [facility] Liver Transplant at [address] [place] [phone] Kaylin Willard MSW Social History Tobacco Use [...] Recorded In the past 12 months has [employer], gas, oil, or water [employer] threatened to shut off services in your [...] Patient reports he completed CD treatment with [facility] and was referred to [facility] for aftercare and will be attending 1 week virtual individual counseling sessions.He reports he was due to start this while hospitalized for the transplant and plans to reschedule his next session. Hope Stone given. SW discussed process for writing to Donor family and confirmed Pt/family have [facility] brochure. No further SW needs identified. NUBIA Barros, BUILDING SERVICE WORKER Transplant Commissary Superintendent documented in this encounter Plan of Treatment Upcoming Encounters Date Type Department Care Team (Late st Contact Info) Description 12/05/2024 8:01 AM EDT Hospital Encounter [facility] ENDOSCOPY [address] [place] [phone] Chris Orosco MD [address] [place] [phone] 12/05/2024 8:01 AM EDT - 12/05/2024 8:31 AM EDT Surgery [facility] ENDOSCOPY [address] [place] [address] Chris Orosco MD [address] [place] [phone] EGD Scheduled Procedures Name Priority Associated Diagnoses [...] documented as of this encounter Care Teams Peoplesoft Hr Developer Relationship Specialty Start Date End Date Enedina Mcguire NP [address] [place] [address] PCP - General Internal Medicine 10/05/24 Maureen Pantoja, ЮЛИЯ Txp Post Coordinator Transplant Hepatology 10/28/24 documented as of this encounter
--- OUTSIDE RECORDS SUMMARY | 2024-11-27 07:52 | XMS_ITS | Encounter Summary ---
Author Organization [facility] Address [facility] [place] [address] Care Team Providers Care Gear Tooth Lapping Machine Operator Name Role Phone Enedina Mcguire NP Primary Care Provider + [phone] Maureen Pantoja RN Unavailable Unavail able Source [...] release of HIV test results or diagnoses. [id number] Health Encounter Details Date Type Department Care Team (Late st Contact Info) Description 10/31/2024 Orders Only [facility] Liver Transplant at [facility] [address] [facility] [address] [place] [address] Harvey Domínguez III, MD [address] [place] [address] [address] [place] [address] Liver replaced by transplant ([facility]) (Primary Dx); Immunosuppressive management encounter following liver transplant ([facility]) Social History Tobacco Use Types Packs/Day [...] past 12 months has th e electric, [employer], [employer], or water [employer] threatened to shut off services in your [...] Description 12/05/2024 8:01 AM EDT Hospital Encounter [facility] ENDOSCOPY [address] [place] [address] Chris Orosco MD [address] [place] [phone] 12/05/2024 8:01 AM EDT - 12/05/2024 8:31 AM EDT Surgery [facility] ENDOSCOPY [address] [place] [phone] Chris Orosco MD [address] [place] [phone] EGD Scheduled Orders Name Type Priority Associated Diagnoses Orde r Schedule Tacrolimus level Lab Routine Liver replaced by transplant (CMS-HCC) Immunosuppressive management encounter following liver transplant (CMS-HCC) 70 Occurrences starting 11/03/2024 until 10/31/2025, 3 completed Hepatic Function Panel Lab Routine Liver replaced by transplant (CMS-HCC) Immunosuppressive management encounter following liver transplant (CMS-HCC) 70 Occurrences starting 11/03/2024 until 10/31/2025, 3 completed Renal Function Panel w/EGFR Lab Routine [...] (CMS-HCC) 70 Occurrences starting 11/03/2024 until 10/31/2025, 3 completed Scheduled Procedures Name Priority Associated Diagnoses Date/Ti me EGD Cirrhosis of liver with ascites, unspecified hepatic cirrhosis type (CMS-HCC) 12/05/2024 8:01 AM EDT documented as of this encounter Results * Differential (11/25/2024 8:42 AM EDT) Neutrophils Relative 73.2 40.0 - 80.0 % 11/25/2024 10:25 AM EDT [facility] Lymphocytes Relative 19.2 15.0 - 45.0 % 11/25/2024 10:25 AM EDT [facility] Monocytes Relative 6.3 0.0 - 12.0 % 11/25/2024 10:25 AM EDT [facility] Eosinophils Relative 0.4 0.0 - 8.0 % 11/25/2024 10:25 AM EDT [facility] Basophils Relative 0.9 0.0 - 1.0 % 11/25/2024 10:25 AM EDT [facility] nRBC 0 0 - 0 /100 WBC 11/25/2024 10:25 AM EDT [facility] Neutrophils Absolute 5,929 1,520 - 8,640 /uL 11/25/2024 10:25 AM EDT [facility] Lymphocytes Absolute 1,555 570 - 4,860 /uL 11/25/2024 10:25 AM EDT [facility] Monocytes Absolute 510 0 - 1,296 /uL 11/25/2024 10:25 AM EDT [facility] Eosinophils Absolute 32 0 - 864 /uL 11/25/2024 10:25 AM EDT [facility] Basophils Absolute 73 0 - 108 /uL 11/25/2024 10:25 AM EDT [facility] Whole Blood 11/25/2024 8:42 AM EDT 11/25/2024 9:44 AM EDT [facility] - 11/25/2024 10:25 AM EDT Standing orders to be drawn: Every Sunday and before 9am and prior to patient taking morning medications. Liver Transplant Fax results to [phone] Call Critical results to [phone] Harvey Domínguez III, MD LAB BLOOD ORDERABLE S Final Result [facility] [address] * (ABNORMAL) Hepatic Function Panel (11/25/2024 8:42 AM EDT) Total Bilirubin 0.7 0.0 - 1.5 mg/dL 11/25/2024 10:20 AM EDT [facility] Bilirubin, Direct 0.20 0.00 - 0.40 mg/dL 11/25/2024 10:20 AM EDT [facility] AST 9(L) 13 - 39 U/L 11/25/2024 10:20 AM EDT [facility] ALT 22 7 - 52 U/L 11/25/2024 10:20 AM EDT [facility] Alkaline Phosphatase 198(H) 36 - 125 U/L 11/25/2024 10:20 AM EDT [facility] Total Protein 7.0 6.4 - 8.9 g/dL 11/25/2024 10:20 AM EDT [facility] Albumin 4.5 3.5 - 5.7 g/dL 11/25/2024 10:20 AM EDT [facility] Bilirubin, Indirect 0.50 0.00 - 1.10 mg/dL 11/25/2024 10:20 AM EDT [facility] Plasma 11/25/2024 8:42 AM EDT 11/25/2024 9:47 AM EDT [facility] - 11/25/2024 10:20 AM EDT Standing orders to be drawn: Every Sunday and before 9am and prior to patient taking morning medications. Liver Transplant Fax results to [phone] Call Critical results to [phone] DO NOT REPLACE RENAL PANEL or HEPATIC FUNCTION PANEL w/ CMP, BMP or HEPATIC PROFILE Harvey Domínguez III, MD LAB BLOOD ORDERABLE S Final Result [facility] [address] [place] [id number] * Tacrolimus level (11/25/2024 8:42 AM EDT) Pathologist [facility] Tacrolimus (LC-MS) 11.6 3.0 - 15.0 ng/mL 11/25/2024 1:14 PM EDT [facility] Comment:Performed via liquid chromatography tandem mass spectrometry. Detection limit: 1 ng/mL. Individual target concentrations may vary due to target organ and time after transplant. This test has been developed and its performance characteristics determined by [facility] which is certified under the Clinical Laboratory Improvement Amendment of 1988 (CLIA-88) to perform high complexity testing. The test has not been cleared or approved by the US Food and Drug Administration (FDA). The FDA has determined that such clearance is not necessary. The test should be used for clinical purposes and is not regarded as investigational. Whole Blood 11/25/2024 8:42 AM EDT 11/25/2024 9:44 AM EDT Narrative [facility] - 11/25/2024 1:14 PM EDT Standing orders to be drawn: Every Sunday and before 9am and prior to patient taking morning medications. Liver Transplant Fax results to [phone] Call Critical results to [phone] us Harvey Domínguez III, MD LAB BLOOD ORDERABLE S Final Result [facility] [address] [place] [address], [facility] * (ABNORMAL) Differential (11/11/2024 9:13 AM EDT) Neutrophils Relative 69.3 40.0 - 80.0 % 11/11/2024 10:31 AM EDT [facility] Lymphocytes Relative 17.6 15.0 - 45.0 % 11/11/2024 10:31 AM EDT [facility] Monocytes Relative 8.5 0.0 - 12.0 % 11/11/2024 10:31 AM EDT [facility] Eosinophils Relative 2.0 0.0 - 8.0 % 11/11/2024 10:31 AM EDT [facility] Basophils Relative 2.6(H) 0.0 - 1.0 % 11/11/2024 10:31 AM EDT [facility] nRBC 0 0 - 0 /100 WBC 11/11/2024 10:31 AM EDT [facility] Neutrophils Absolute 4,920 1,520 - 8,640 /uL 11/11/2024 10:31 AM EDT [facility] Lymphocytes Absolute 1,250 570 - 4,860 /uL 11/11/2024 10:31 AM EDT [facility] Monocytes Absolute 604 0 - 1,296 /uL 11/11/2024 10:31 AM EDT [facility] Eosinophils Absolute 142 0 - 864 /uL 11/11/2024 10:31 AM EDT [facility] Basophils Absolute 185(H) 0 - 108 /uL 11/11/2024 10:31 AM EDT [facility] Whole Blood 11/11/2024 9:13 AM EDT 11/11/2024 10:19 AM EDT Narrative [facility] - 11/11/2024 10:31 AM EDT Standing orders to be drawn: Every Sunday and before 9am and prior to patient taking morning medications. Liver Transplant Fax results to [phone] Call Critical results to [phone] us Harvey Domínguez III, MD LAB BLOOD ORDERABLE S Final Result [facility] [address] * (ABNORMAL) CBC (11/11/2024 9:13 AM EDT) WBC 7.1 3.8 - 10.8 10E3/uL 11/11/2024 10:31 AM EDT [facility] RBC 3.42(L) 4.20 - 5.80 10E6/uL 11/11/2024 10:31 AM EDT [facility] Hemoglobin 10.6(L) 13.2 - 17.1 g/dL 11/11/2024 10:31 AM EDT [facility] Hematocrit 31.3(L) 38.5 - 50.0 % 11/11/2024 10:31 AM EDT [facility] MCV 91.5 80.0 - 100.0 fL 11/11/2024 10:31 AM EDT [facility] MCH 31.0 27.0 - 33.0 pg 11/11/2024 10:31 AM EDT [facility] MCHC 33.8 32.0 - 36.0 g/dL 11/11/2024 10:31 AM EDT [facility] RDW 20.5(H) 11.0 - 15.0 % 11/11/2024 10:31 AM EDT [facility] Platelets 308 140 - 400 10E3/uL 11/11/2024 10:31 AM EDT [facility] MPV 6.1(L) 7.5 - 11.5 fL 11/11/2024 10:31 AM EDT [facility] Whole Blood 11/11/2024 9:13 AM EDT 11/11/2024 10:19 AM EDT Narrative [facility] - 11/11/2024 10:31 AM EDT Standing orders to be drawn: Every Sunday and before 9am and prior to patient taking morning medications. Liver Transplant Fax results to [phone] Call Critical results to [phone] us Harvey Domínguez III, MD LAB BLOOD ORDERABLE S Final Result [facility] [address] [place], [place] [address] * (ABNORMAL) Renal Function Panel w/EGFR (11/11/2024 9:13 AM EDT) Sodium 141 133 - 146 mmol/L 11/11/2024 10:51 AM EDT [facility] Potassium 4.6 3.5 - 5.3 mmol/L 11/11/2024 10:51 AM EDT [facility] Chloride 108 98 - 110 mmol/L 11/11/2024 10:51 AM EDT [facility] CO2 24 21 - 33 mmol/L 11/11/2024 10:51 AM EDT [facility] Anion Gap 9 3 - 16 mmol/L 11/11/2024 10:51 AM EDT [facility] BUN 27(H) 7 - 25 mg/dL 11/11/2024 10:51 AM EDT [facility] Creatinine 1.14 0.60 - 1.30 mg/dL 11/11/2024 10:51 AM EDT [facility] Glucose 97 70 - 100 mg/dL 11/11/2024 10:51 AM EDT [facility] Calcium 8.6 8.6 - 10.3 mg/dL 11/11/2024 10:51 AM EDT [facility] Phosphorus 4.4 2.1 - 4.7 mg/dL 11/11/2024 10:51 AM EDT [facility] Albumin 3.8 3.5 - 5.7 g/dL 11/11/2024 10:51 AM EDT [facility] Osmolality, Calculated 297 278 - 305 mOsm/kg 11/11/2024 10:51 AM EDT [facility] EGFR 83 11/11/2024 10:51 AM EDT [facility] Comment:As of 2021, the estimated [...] 9:13 AM EDT 11/11/2024 10:19 AM EDT [facility] - 11/11/2024 10:51 AM EDT Standing orders to be drawn: Every Sunday and before 9am and prior to patient taking morning medications. Liver Transplant Fax results to [phone] Call Critical results to [phone] DO NOT REPLACE RENAL PANEL or HEPATIC FUNCTION PANEL w/ CMP, BMP or HEPATIC PROFILE Harvey Domínguez III, MD LAB BLOOD ORDERABLE S Final Result [facility] [address] [address], [facility] * (ABNORMAL) Hepatic Function Panel (11/11/2024 9:13 AM EDT) Total Bilirubin 1.0 0.0 - 1.5 mg/dL 11/11/2024 10:51 AM EDT [facility] Bilirubin, Direct 0.39 0.00 - 0.40 mg/dL 11/11/2024 10:51 AM EDT [facility] AST 15 13 - 39 U/L 11/11/2024 10:51 AM EDT [facility] ALT 26 7 - 52 U/L 11/11/2024 10:51 AM EDT [facility] Alkaline Phosphatase 125 36 - 125 U/L 11/11/2024 10:51 AM EDT [facility] Total Protein 5.9(L) 6.4 - 8.9 g/dL 11/11/2024 10:51 AM EDT [facility] Albumin 3.8 3.5 - 5.7 g/dL 11/11/2024 10:51 AM EDT [facility] Bilirubin, Indirect 0.61 0.00 - 1.10 mg/dL 11/11/2024 10:51 AM EDT [facility] Plasma 11/11/2024 9:13 AM EDT 11/11/2024 10:19 AM EDT Narrative [facility] - 11/11/2024 10:51 AM EDT Standing orders to be drawn: Every Sunday and before 9am and prior to patient taking morning medications. Liver Transplant Fax results to [phone] Call Critical results to [phone] DO NOT REPLACE RENAL PANEL or HEPATIC FUNCTION PANEL w/ CMP, BMP or HEPATIC PROFILE Harvey Domínguez III, MD LAB BLOOD ORDERABLE S Final Result [facility] [address] * Tacrolimus level (11/11/2024 9:13 AM EDT) [facility] Tacrolimus (LC-MS) 10.4 3.0 - 15.0 ng/mL 11/11/2024 1:22 PM EDT [facility] Comment:Performed via liquid chromatography tandem mass spectrometry. Detection limit: 1 ng/mL. Individual target concentrations may vary due to target organ and time after transplant. This test has been developed and its performance characteristics determined by [facility] which is certified under the [...] AM EDT 11/11/2024 10:19 AM EDT Narrative [facility] - 11/11/2024 1:22 PM EDT Standing orders to be drawn: Every Sunday and before 9am and prior to patient taking morning medications. Liver Transplant Fax results to [phone] Call Critical results to [phone] us Harvey Domínguez III, MD LAB BLOOD ORDERABLE S Final Result Performing Organization Address [facility] Co de Phone Number [facility] [address] * (ABNORMAL) Differential (11/04/2024 8:46 AM EDT) [facility] Differential Comments See Note 11/05/2024 12:05 AM EDT [facility] Comment: _Platelets Appear Decreased _Platelet Morphology Normal Myelocytes Relative 3.0(H) 0.0 - 0.0 % 11/05/2024 12:05 AM EDT [facility] Neutrophils Relative 73.0 40.0 - 80.0 % 11/05/2024 12:05 AM EDT [facility] Lymphocytes Relative 17.0 15.0 - 45.0 % 11/05/2024 12:05 AM EDT [facility] Monocytes Relative 6.0 0.0 - 12.0 % 11/05/2024 12:05 AM EDT [facility] Eosinophils Relative 1.0 0.0 - 8.0 % 11/05/2024 12:05 AM EDT [facility] Basophils Relative 0.0 0.0 - 1.0 % 11/05/2024 12:05 AM EDT [facility] Neutrophils Absolute 5,256 1,520 - 8,640 /uL 11/05/2024 12:05 AM EDT [facility] Myelocytes Absolute 216(H) 0 - 0 /uL 11/05/2024 12:05 AM EDT [facility] Lymphocytes Absolute 1,224 570 - 4,860 /uL 11/05/2024 12:05 AM EDT [facility] Monocytes Absolute 432 0 - 1,296 /uL 11/05/2024 12:05 AM EDT [facility] Eosinophils Absolute 72 0 - 864 /uL 11/05/2024 12:05 AM EDT [facility] Basophils Absolute 0 0 - 108 /uL 11/05/2024 12:05 AM EDT [facility] PLT Morphology Platelet morphology appears normal 11/05/2024 12:05 AM EDT [facility] Whole Blood 11/04/2024 8:46 AM EDT 11/04/2024 11:01 PM EDT Narrative [facility] - 11/05/2024 12:05 AM EDT Standing orders to be drawn: Every Sunday and before 9am and prior to patient taking morning medications. Liver Transplant Fax results to [phone] Call Critical results to [phone] Manual WBC differential performed per review criteria approved by the director of graduate medical education. us Harvey Domínguez III, MD LAB BLOOD ORDERABLE S Final Result [facility] [address] [facility] [place] [address], [facility] * (ABNORMAL) CBC (11/04/2024 8:46 AM EDT) WBC 7.2 3.8 - 10.8 10E3/uL 11/05/2024 12:05 AM EDT [facility] RBC 3.17(L) 4.20 - 5.80 10E6/uL 11/05/2024 12:05 AM EDT [facility] Hemoglobin 9.7(L) 13.2 - 17.1 g/dL 11/05/2024 12:05 AM EDT [facility] Hematocrit 28.6(L) 38.5 - 50.0 % 11/05/2024 12:05 AM EDT [facility] MCV 90.2 80.0 - 100.0 fL 11/05/2024 12:05 AM EDT [facility] MCH 30.5 27.0 - 33.0 pg 11/05/2024 12:05 AM EDT [facility] MCHC 33.8 32.0 - 36.0 g/dL 11/05/2024 12:05 AM EDT [facility] RDW 17.9(H) 11.0 - 15.0 % 11/05/2024 12:05 AM EDT [facility] Platelets 137(L) 140 - 400 10E3/uL 11/05/2024 12:05 AM EDT [facility] Platelet Estimate Decreased 11/05/2024 12:05 AM EDT [facility] MPV 8.4 7.5 - 11.5 fL 11/05/2024 12:05 AM EDT [facility] Whole Blood 11/04/2024 8:46 AM EDT 11/04/2024 11:01 PM EDT Narrative [facility] - 11/05/2024 12:05 AM EDT Standing orders to be drawn: Every Sunday and before 9am and prior to patient taking morning medications. Liver Transplant Fax results to [phone] Call Critical results to [phone] Peripheral blood smear was scanned per review criteria approved by the laboratory director of graduate medical education. us Harvey Domínguez III, MD LAB BLOOD ORDERABLE S Final Result [facility] [address] [place] [address], [facility] * (ABNORMAL) Renal Function Panel w/EGFR (11/04/2024 8:46 AM EDT) Sodium 139 133 - 146 mmol/L 11/04/2024 10:06 AM EDT [facility] Potassium 3.8 3.5 - 5.3 mmol/L 11/04/2024 10:[facility] Chloride 106 98 - 110 mmol/L 11/04/2024 10:06 AM EDT [facility] CO2 25 21 - 33 mmol/L 11/04/2024 10:06 AM EDT [facility] Anion Gap 8 3 - 16 mmol/L 11/04/2024 10:06 AM [facility] BUN 34(H) 7 - 25 mg/dL 11/04/2024 10:06 AM [facility] Creatinine 1.08 0.60 - 1.30 mg/dL 11/04/2024 10:06 AM [facility] Glucose 92 70 - 100 mg/dL 11/04/2024 10:06 AM T [facility] Calcium 7.8(L) 8.6 - 10.3 mg/dL 11/04/2024 10:06 AM T [facility] Phosphorus 1.9(L) 2.1 - 4.7 mg/dL 11/04/2024 10:06 AM [facility] Albumin 3.5 3.5 - 5.7 g/dL 11/04/2024 10:06 AM [facility] Osmolality, Calculated 295 278 - 305 mOsm/kg 11/04/2024 10:06 [facility] EGFR 88 11/04/2024 10:06 AM [facility] [...] M, Olivia DC, Emerita ND, Madelyn CA, Pewter Finisher [place], et al. A Unifying Approach for GFR Estimation: Recommendations of the NKF-ASN Task Force on Reassessing the inclusion of Race in Diagnosing Kidney Disease. Am J Kidney Dis. 2020. Plasma 11/04/2024 8:46 AM EDT 11/04/2024 9:32 AM EDT [facility] - 11/04/2024 10:06 AM EDT Standing orders to be drawn: Every Sunday and before 9am and prior to patient taking morning medications. Liver Transplant Fax results to [phone] Call Critical results to [phone] DO NOT REPLACE RENAL PANEL or HEPATIC FUNCTION PANEL w/ CMP, BMP or HEPATIC PROFILE us Harvey Domínguez III, MD LAB BLOOD ORDERABLE S Final Result [facility] [address] * (ABNORMAL) Hepatic Function Panel (11/04/2024 8:46 AM EDT) Total Bilirubin 1.3 0.0 - 1.5 mg/dL 11/04/2024 10:06 AM EDT [facility] Bilirubin, Direct 0.57(H) 0.00 - 0.40 mg/dL 11/04/2024 10:06 AM EDT [facility] AST 20 13 - 39 U/L 11/04/2024 10:06 AM EDT [facility] ALT 67(H) 7 - 52 U/L 11/04/2024 10:06 AM EDT [facility] Alkaline Phosphatase 133(H) 36 - 125 U/L 11/04/2024 10:06 AM EDT [facility] Total Protein 5.4(L) 6.4 - 8.9 g/dL 11/04/2024 10:06 AM EDT [facility] Albumin 3.5 3.5 - 5.7 g/dL 11/04/2024 10:06 AM EDT [facility] Bilirubin, Indirect 0.73 0.00 - 1.10 mg/dL 11/04/2024 10:06 AM EDT [facility] Plasma 11/04/2024 8:46 AM EDT 11/04/2024 9:32 AM EDT Narrative [facility] - 11/04/2024 10:06 AM EDT Standing orders to be drawn: Every Sunday and before 9am and prior to patient taking morning medications. Liver Transplant Fax results to [phone] Call Critical results to [phone] DO NOT REPLACE RENAL PANEL or HEPATIC FUNCTION PANEL w/ CMP, BMP or HEPATIC PROFILE Harvey Domínguez III, MD LAB BLOOD ORDERABLE S Final Result [facility] [address] * Tacrolimus level (11/04/2024 8:46 AM EDT) [facility] Tacrolimus (LC-MS) 9.0 3.0 - 15.0 ng/mL 11/04/2024 3:14 PM EDT [facility] Comment:Performed via liquid chromatography tandem mass spectrometry. Detection limit: 1 ng/mL. Individual target concentrations may vary due to target organ and time after transplant. This test has been developed and its performance characteristics determined by [facility] which is certified under the [...] AM EDT 11/04/2024 9:35 AM EDT Narrative [facility] - 11/04/2024 3:14 PM EDT Standing orders to be drawn: Every Sunday and before 9am and prior to patient taking morning medications. Liver Transplant Fax results to [phone] Call Critical results to [phone] us Harvey Domínguez III, MD LAB BLOOD ORDERABLE S Final Result [facility] [address] [place] [address], [facility] documented in this encounter [...] documented as of this encounter Care Teams Gear Tooth Lapping Machine Operator Relationship Specialty Start Date End Date Enedina Mcguire NP [address] [place] [address] PCP - General Internal Medicine 10/05/24 Maureen Pantoja, RN Txp Post Coordinator Transplant Hepatology 10/28/24 documented as of this encounter
--- OUTSIDE RECORDS SUMMARY | 2024-11-27 07:52 | XMS_ITS | Encounter Summary ---
Author Organization [facility] Address [address] [place] [address] Care Team Providers Care Tobacco Prizer Name Role Phone Enedina Mcguire NP Primary Care Provider + [phone] Maureen Pantoja RN Unavailable Unavail able Source [...] release of HIV test results or diagnoses. [id number] Reason for Visit * Reason Comments Results Encounter Details Date Type Department Care Team (Riky st Contact Info) Description 11/11/2024 Telephone [facility] Liver Transplant at [address] [address] Maureen Pantoja, RN Results Social [...] In the past 12 months has e [employer], gas, oil, or water [employer] threatened to shut off services in your [...] AM EDT Hospital Encounter [facility] ENDOSCOPY [address] [place] [id number] Chris Orosco MD [address] [place] [phone] 12/05/2024 8:01 AM EDT - 12/05/2024 8:31 AM EDT Surgery [facility] ENDOSCOPY [address] [place] [address] Chris Orosco MD [address] [place] [phone] EGD Scheduled Procedures Name Priority Associated Diagnoses [...] as of this encounter Care Teams Tobacco Prizer Relationship Specialty Start Date End Date Enedina Mcguire NP [address] [place] [address] PCP - General Internal Medicine 10/05/24 Maureen Pantoja, ЮЛИЯ Txp Post Coordinator Transplant Hepatology 10/28/24 documented as of this encounter
--- OUTSIDE RECORDS SUMMARY | 2024-11-27 07:52 | XMS_ITS | Encounter Summary ---
Author Organization [facility] Address [address] [place] [address] Care Team Providers Care Cylinder Devalver Name Role Phone Enedina Mcguire NP Primary Care Provider + [phone] Maureen Pantoja RN Unavailable Unavail able Source [...] release of HIV test results or diagnoses. [id number] Reason for Visit * Reason Comments Transplant Review Encounter Details Date Type Department Care Team (Late st Contact Info) Description 10/27/2024 Pharmacy Services [facility] [address] [place] [phone] Opal Cox, TaniD Social History Tobacco [...] Recorded In the past 12 months has [employer], gas, oil, or water [employer] threatened to shut off services in your [...] of Care Patient's prescriptions were sent to [facility] for a Transplant benefits review. Julien Anderson received a Kidney/Liver Transplant on 10/26-10/27/24 at [facility]. The patient's discharge medications were sent to [facility] Discharge [facility] for anticipated discharge of 11/03/24. The patient has a [employer] [facility] commercial insurance plan to cover prescriptions. Currently, the patient's co-pay for all medications is listed below: Acetaminophen 325 mg - $4 Alcohol swabs - $0 Aspiring 81mg - $4 Atovaquone 750 mg/5 ml - $0 Dexcom G7 Manager Club- $0 Dexcom G7 Sensor- $0 Eliquis 2.5mg [...] $0 Specialty Pharmacy Requirements: Name of Pharmacy: [facility] Specialty Phone Number: Prescriptions Transferred at Discharge Date: The patient could have potential eligibility for the pharmaceutical company medication assistance program for each of these medications. Mr Anderson's total cost of discharge prescriptions is currently $16. This total is subject to changewith the addition or change in any of the prescriptions sent to [facility] Discharge Pharm[facility]. A call was placed to Mr Anderson's room to discuss total cost amount from above and encourage patientto set up profile with [facility] Specialty. [facility] Specialty Pharmacy confirmed delivery of immunosuppressants to [...] The patient has been referred to the [facility] Transplant Team. The patient should visit [facility] for assistance if problems arise with the prescriptions. If questions arise regarding discharge medications, please call [phone]. Opal Cox Pharm D Transitions of Care [phone] documented in this encounter Plan of Treatment Upcoming Encounters Date Type Department Care Team (Late st Contact Info) Description 12/05/2024 8:01 AM EDT Hospital Encounter [facility] ENDOSCOPY [address] [place] [phone] Chris Orosco MD [address] [place] [phone] 12/05/2024 8:01 AM EDT - 12/05/2024 8:31 AM EDT Surgery [facility] ENDOSCOPY [address] [place] [phone] Chris Orosco MD [address] [place] [phone] EGD Scheduled Procedures Name Priority Associated Diagnoses [...] documented as of this encounter Care Teams Cylinder Devalver Relationship Specialty Start Date End Date Enedina Mcguire NP [address] [place] [address] PCP - General Internal Medicine 10/05/24 Maureen Pantoja, ЮЛИЯ Txp Post Coordinator Transplant Hepatology 10/28/24 documented as of this encounter
--- OUTSIDE RECORDS SUMMARY | 2024-11-27 07:52 | XMS_ITS | Encounter Summary ---
Author Organization [facility] Address [address] [place] [address] Care Team Providers Care Food And Beverage Coordinator Name Role Phone Enedina Mcguire NP Primary Care Provider [phone] Source Comments This information has been disclosed [...] release of HIV test results or diagnoses. [id number] Reason for Visit * Reason Comments Prescription Issue RX Clarification Req uest Encounter Details Date Type Department Care Team (Late st Contact Info) Description 10/20/2024 Telephone [facility] Gastroenterology at [facility] Office [address] [place] [phone] Gerri Peterson MD [address] [place] [address] Prescription Issue (RX Clarification Request [...] Recorded In the past 12 months has [employer]), gas, oil, or water [employer] threatened to shut off services in your [...] to be filled Please return call to [phone]. documented in this encounter Plan of Treatment Upcoming Encounters Date Type Department Care Team (Late st Contact Info) Description 12/05/2024 8:01 AM EDT Hospital Encounter [facility] ENDOSCOPY [address] [place] [phone] Chris Orosco MD [address] [place] [phone] 12/05/2024 8:01 AM EDT - 12/05/2024 8:31 AM EDT Surgery [facility] ENDOSCOPY [address] [place] [address] Chris Orosco MD [address] [place] [phone] EGD Scheduled Procedures Name Priority Associated Diagnoses [...] this encounter Care Teams Food And Beverage Coordinator Relationship Specialty Start Date End Date Enedina Mcguire NP [address] [place] [address] PCP - General Internal Medicine 10/05/24 documented as of this encounter
--- OUTSIDE RECORDS SUMMARY | 2024-11-27 07:52 | XMS_ITS | Encounter Summary ---
Author Organization [facility] Address [address] [place] [address] Care Team Providers Care Wheat Grower Name Role Phone Enedina Mcguire NP Primary Care Provider + [phone] Maureen Pantoja RN Unavailable Unavail able Source [...] release of HIV test results or diagnoses. [id number] Health Encounter Details Date Type Department Care Team (Late st Contact Info) Description 11/04/2024 Nutrition [facility] Transplant at [address] [place] [phone] Ben Weiss, DMITRY Social History Tobacco Use [...] Recorded In the past 12 months has [employer], gas, oil, or water [employer] threatened to shut off services in your [...] times a day. naloxone (NARCAN) 4 mg/actuation [place] Apply 1 spray in one nostril if [...] Hospital Encounter [facility] ENDOSCOPY [address] [place] [address] Chris Orosco MD [address] [place] [phone] 12/05/2024 8:01 AM EDT - 12/05/2024 8:31 AM EDT Surgery [facility] ENDOSCOPY [address] [place] [address] Chris Orosco MD [address] [place] [phone] EGD Scheduled Procedures Name Priority Associated Diagnoses [...] documented as of this encounter Care Teams Wheat Grower Relationship Specialty Start Date End Date Enedina Mcguire NP [address] [place] [address] PCP - General Internal Medicine 10/05/24 Maureen Pantoja, ЮЛИЯ Txp Post Coordinator Transplant Hepatology 10/28/24 documented as of this encounter
--- OUTSIDE RECORDS SUMMARY | 2024-11-27 07:54 | XMS_ITS | Encounter Summary ---
Author Organization [facility] Address [address] [place] [address] Care Team Providers Care Corn Cooker Name Role Phone Enedina Mcguire NP Primary Care Provider [phone] Source Comments This information has been disclosed [...] release of HIV test results or diagnoses. [id number] Encounter Details Date Type Department Care Team (Late st Contact Info) Description 10/17/2024 Pharmacy Services [facility] Discharge [facility]acy [address] [place] [phone] Qu, Ridge, RPh Social History Tobacco [...] Recorded In the past 12 months has [employer], gas, oil, or water company threatened [...] this encounter Progress Notes * Ridge Menjivar, [facility] - 10/17/2024 9:47 AM EDT Julien [...] member, friend, or other person (including a sanitation officer). The at-risk individual reports no known [...] Encounter [facility] ENDOSCOPY [address] [place] [phone] Chris Orosco MD [address] [place] [phone] 12/05/2024 8:01 AM EDT - 12/05/2024 8:31 AM EDT Surgery [facility] ENDOSCOPY [address] [place] [phone] Chris Orosco MD [address] [place] [phone] EGD Scheduled Procedures Name Priority Associated Diagnoses [...] as of this encounter Care Teams Corn Cooker Relationship Specialty Start Date End Date Enedina Mcguire NP [address] [place] [address] PCP - General Internal Medicine 10/05/24 documented as of this encounter
--- OUTSIDE RECORDS SUMMARY | 2024-11-27 07:54 | XMS_ITS | Encounter Summary ---
Author Organization [facility] Address [address] [place] [address] Care Team Providers Care Sales Marketing Name Role Phone Enedina Mcguire NP Primary Care Provider + [phone] Maureen Pantoja RN Unavailable Unavail able Source [...] release of HIV test results or diagnoses. [id number] Health Encounter Details Date Type Department Care Team (Late st Contact Info) Description 10/29/2024 Education Chart Note [facility] Liver Transplant at [address] [place] [phone] Crista Power, RN Social History Tobacco [...] Recorded In the past 12 months has [employer], gas, oil, or water [employer] threatened to shut off services in [...] of Infection/Rejection [x] 5. When to call guest relations coordinator [x] 6. Outpatient follow up including [...] times 0900/2100. Julien Anderson has to use [facility]. Meds are getting delivered 10/31/24. documented in this encounter Plan of Treatment Upcoming Encounters Date Type Department Care Team (Late st Contact Info) Description 12/05/2024 8:01 AM EDT Hospital Encounter [facility] ENDOSCOPY [address] [place] [address] Chris Orosco MD [address] [place] [address] 12/05/2024 8:01 AM EDT - 12/05/2024 8:31 AM EDT Surgery [facility] ENDOSCOPY [address] [place] [address] Chris Orosco MD [address] [place] [phone] EGD Scheduled Procedures Name Priority Associated Diagnoses [...] as of this encounter Care Teams Sales Marketing Relationship Specialty Start Date End Date Enedina Mcguire NP [address] [place] [phone] PCP - General Internal Medicine 10/05/24 Maureen Pantoja, ЮЛИЯ Txp Post Coordinator Transplant Hepatology 10/28/24 documented as of this encounter
--- OUTSIDE RECORDS SUMMARY | 2024-11-27 07:54 | XMS_ITS | Encounter Summary ---
Author Organization [facility] Address [facility] [place] [address] Care Team Providers Care Completions Engineer Name Role Phone Enedina Mcguire NP Primary Care Provider + [phone] Maureen Pantoja RN Unavailable Unavail able Source [...] release of HIV test results or diagnoses. [id number] Health Encounter Details Date Type Department Care [...] Recorded In the past 12 months has [employer], [employer], oil, or water [employer] threatened to shut off services in your [...] Hospital Encounter [facility] ENDOSCOPY [address] [place] [phone] Chris Orosco MD [address] [place] [phone] 12/05/2024 8:01 AM EDT - 12/05/2024 8:31 AM EDT Surgery [facility] ENDOSCOPY [address] [place] [phone] Chris Orosco MD [address] [place] [phone] EGD Scheduled Procedures Name Priority Associated Diagnoses Date/Ti me EGD Cirrhosis of liver with ascites, unspecified hepatic cirrhosis type ([facility]) 12/05/2024 8:01 AM EDT documented as of this encounter Visit Diagnoses Not on filedocumented in this encounter Additional Health Concerns Assessment Noted Time PHQ-9 Depression Total Score: 17 025 11:00 AM EDT documented as of this encounter Care Teams Completions Engineer Relationship Specialty Start Date End Date Enedina Mcguire NP [address] [place] [address] PCP - General Internal Medicine 10/05/24 Maureen Pantoja, ЮЛИЯ Txp Post Coordinator Transplant Hepatology 10/28/24 documented as of this encounter
--- OUTSIDE RECORDS SUMMARY | 2024-11-27 07:54 | XMS_ITS | Encounter Summary ---
Author Organization [facility] Address [address] [place] [address] Care Team Providers Care Web Content & Social Media Manager Name Role Phone Enedina Mcguire NP Primary Care Provider + [phone] Maureen Pantoja RN Unavailable Unavail able Source [...] release of HIV test results or diagnoses. [id number] Health Encounter Details Date Type Department Care Team (Late st Contact Info) Description 11/03/2024 Telephone [facility] Liver Transplant at [address] [place] [phone] Marisela Martinez MA Social History Tobacco [...] Recorded In the past 12 months has [employer], gas, oil, or water [employer] threatened to shut off services in your [...] he will have his labs drawn at [facility] prior to clinic on 11/03. documented in this encounter Plan of Treatment Upcoming Encounters Date Type Department Care Team (Late st Contact Info) Description 12/05/2024 8:01 AM EDT Hospital Encounter [facility] ENDOSCOPY [address] [place] [address] Chris Orosco MD [address] [place] [phone] 12/05/2024 8:01 AM EDT - 12/05/2024 8:31 AM EDT Surgery [facility] ENDOSCOPY [address] [place] [address] Chris Orosco MD [address] [place] [address] [phone] EGD Scheduled Procedures Name Priority Associated Diagnoses [...] as of this encounter Care Teams Web Content & Social Media Manager Relationship Specialty Start Date End Date Enedina Mcguire NP [address] [place] [address] PCP - General Internal Medicine 10/05/24 Pantoja, Maureen Leeanna, RN Txp Post Coordinator Transplant Hepatology 10/28/24 documented as of this encounter
--- OUTSIDE RECORDS SUMMARY | 2024-11-27 07:54 | XMS_ITS | Encounter Summary ---
Author Organization [facility] Address [address] [place] [address] Care Team Providers Care Filling Carrier Name Role Phone Enedina Mcguire NP Primary Care Provider + [phone] Maureen Pantoja RN Unavailable Unavail able Source [...] release of HIV test results or diagnoses. [id number] Health Encounter Details Date Type Department Care Team (Late st Contact Info) Description 11/03/2024 Chart Note [facility] Liver Transplant at [address] [place] [phone] Hillary Fernandes, TaniD Liver Transplant Pharmacy Discharge [...] In the past 12 months has [employer], gas, oil, or water [employer] threatened to shut off services in your [...] times a day. naloxone (NARCAN) 4 mg/actuation [place] Apply 1 spray in one nostril if [...] Solid Organ Transplant Clinical Specialist Contact via [employer] documented in this encounter Plan of Treatment Upcoming Encounters Date Type Department Care Team (Late st Contact Info) Description 12/05/2024 8:01 AM EDT Hospital Encounter [facility] ENDOSCOPY [address] [place] [phone] Chris Orosco MD [address] [place] [phone] 12/05/2024 8:01 AM EDT - 12/05/2024 8:31 AM EDT Surgery [facility] ENDOSCOPY [address] [place] [phone] Chris Orosco MD [address] [place] [phone] EGD Scheduled Procedures Name Priority Associated Diagnoses Date/Ti me EGD Cirrhosis of liver with ascites, unspecified hepatic cirrhosis type ([facility]) 12/05/2024 8:01 AM EDT documented as of this encounter Visit Diagnoses Not on filedocumented in this encounter Additional Health Concerns 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
--- OUTSIDE RECORDS SUMMARY | 2024-11-27 07:55 | XMS_ITS | Clinical Summary ---
Author Organization [facility] Address [facility] [place] [address] Care Team Providers Care Jd Edwards Name Role Phone Enedina Mcguire NP Primary Care Provider + [phone] Maureen Pantoja RN Unavailable Unavail able Source [...] therelease of HIV test results or diagnoses. [id number] Allergies Active Allergy Reactions Criticality Noted [...] EDT 025 Active naloxone (NARCAN) 4 mg/actuation [place] Apply 1 spray in one nostril if needed. Call 911. May repeat dose in other nostril if no response in 3 minutes. 2 each 1 10/18/19 25 10:25 AM EDT 025 Active senna-docusate (SENNOSIDES-DOCUSA TE SODIUM) 8.6-50 mg per tablet Take 1 tablet by mouth at bedtime as needed for Constipation. 30 tablet 11/03/19 10:20 AM EDT Active polyethylene glycol (GLYCOLAX) 17 gram/dose powder Mix one capful (17 grams) in 8 ounces of liquid and drink by mouth daily as needed (Constipation). 238 g 11/03/19 10:20 AM EDT Active pen needle, diabetic 32 gauge x 5/32 Ndle For use with insulin pen. Use as instructed. 100 each 11/03/19 10:20 AM EDT Active alcohol swabs PadM Use as instructed. 200 each 11/03/19 10:20 AM EDT Active blood-glucose meter (TRUE METRIX GLUCOSE METER) [facility] Use to test blood sugar up to 4 times a day. 1 each 11/03/19 10:20 AM EDT Active blood sugar diagnostic (GLUCOSE BLOOD) Strp Use to test blood sugar up to 4 times a day. 100 strip 11 11/03/19 10:20 AM EDT Active lancets (ACCU-CHEK SOFTCLIX LANCETS) [facility] Use to [...] 15 mL 2 11/03/19 10:20 AM EDT 025 Active methocarbamoL (ROBAXIN) 500 MG tablet Take 2 tablets (1,000 mg total) by mouth 3 times a day. 180 tablet 11/03/19 10:20 AM EDT 025 Active magnesium chloride (SLOW MAG) 71.5 mg TbECIndications:hy pomagnesemia Take 2 tablets (143 mg total) by mouth 3 times a day. Indications: hypomagnesemia 180 tablet 2 025 02/02 Active FLUoxetine (PROZAC) 20 MG capsule Take 1 capsule (20 mg total) by mouth daily. 30 capsule 2 025 Active acetaminophen (TYLENOL) 325 MG tabletIndications: Encounter for therapeutic drug monitoring,S/P liver transplant ([facility]),Hypomagn esemia,Kidney transplant recipient,Hyperten kevin, unspecified type,Gastroesophag eal reflux disease, unspecified whether esophagitis present Take 3 tablets (975 mg total) by mouth every 8 hours. 200 tablet Active ergocalciferol (ERGOCALCIFEROL) 1,250 mcg (50,000 unit) capsuleIndications :Encounter for therapeutic drug monitoring,S/P liver transplant ([facility]),Hypomagn esemia,Kidney transplant recipient,Hyperten kevin, unspecified type,Gastroesophag eal reflux disease, unspecified whether esophagitis present Take 1 capsule (50,000 Units total) by mouth once a week. 4 capsule 2 025 Active famotidine (PEPCID) 20 MG tabletIndications: Encounter for therapeutic drug monitoring,S/P liver transplant ([facility]),Hypomagn esemia,Kidney transplant recipient,Hyperten kevin, unspecified type,Gastroesophag eal reflux disease, unspecified whether esophagitis present Take 1 tablet (20 mg total) by mouth 2 times a day. 60 tablet 2 025 Active NIFEdipine (PROCARDIA-XL) 30 MG (OSM) 24 hr tabletIndications: Encounter for therapeutic drug monitoring,S/P liver transplant ([facility]),Hypomagn esemia,Kidney transplant recipient,Hyperten kevin, unspecified type,Gastroesophag eal reflux disease, unspecified whether esophagitis present Take 1 tablet (30 mg total) by mouth daily. 30 tablet 025 Active sodium bicarbonate 650 MG tabletIndications: metabolic acidosis Take 1 tablet (650 mg total) by mouth 2 times a day. Indications: metabolic acidosis 60 tablet 025 Active sulfamethoxazole-t rimethoprim (BACTRIM) 400-80 mg per tabletIndications: Encounter for therapeutic drug monitoring,S/P liver transplant ([facility]),Hypomagn esemia,Kidney transplant recipient,Hyperten kevin, unspecified type,Gastroesophag eal reflux disease, unspecified whether esophagitis present Take 1 tablet by mouth daily. 30 tablet 2 Active valGANciclovir (VALCYTE) 450 mg tabletIndications: Encounter for therapeutic drug monitoring,S/P liver transplant ([facility]),Hypomagn esemia,Kidney transplant recipient,Hyperten kevin, unspecified type,Gastroesophag eal reflux disease, unspecified whether esophagitis present Take 1 tablet (450 mg total) by mouth daily. 30 tablet 2 Active mycophenolate (CELLCEPT) 250 mg capsuleIndications :Encounter for therapeutic drug monitoring,S/P liver transplant ([facility]),Hypomagn esemia,Kidney transplant recipient,Hyperten kevin, unspecified type,Gastroesophag eal reflux disease, unspecified whether esophagitis present Take 2 capsules (500 mg total) by mouth 2 times a day. 120 capsule 5 Active tacrolimus (PROGRAF) 1 MG capsuleIndications :Prevention of Kidney Transplant Rejection,Preventi on of Liver Transplant Rejection Take 5 capsules (5 mg total) by mouth every morning AND 6 capsules (6 mg total) at bedtime. Use as directed. Indications: Prevention of Kidney Transplant Rejection, Prevention of Liver Transplant Rejection. 330 capsule 5 Active gabapentin (NEURONTIN) 100 MG capsuleIndications :Encounter for therapeutic drug monitoring,S/P liver transplant ([facility]),Hypomagn esemia,Kidney transplant recipient,Hyperten kevin, unspecified type,Gastroesophag eal reflux disease, unspecified whether esophagitis present Take 1 capsule (100 mg total) by mouth 3 times a day. 90 capsule Active HYDROmorphone (DILAUDID) 2 MG tabletIndications: Abdominal pain, unspecified abdominal location Take 1 tablet (2 mg total) by mouth every 6 hours as needed for up to 7 days. 28 tablet 12/02 Active predniSONE (DELTASONE) 5 MG tablet Take 2 tablets (10 mg total) by mouth daily. Active folic acid (FOLVITE) 1 MG tablet Take 1 tablet (1 mg total) by mouth daily. 10/31 Discontinued( Stop Taking at Discharge) pantoprazole (PROTONIX) 40 MG tablet Take 1 tablet (40 mg total) by mouth every morning before breakfast. 10/30 Discontinued( Stop Taking at Discharge) zinc sulfate (ZINCATE) 50 mg zinc (220 mg) capsule Take 1 capsule (220 mg total) by mouth daily. 60 capsule 08/20/19 1:23 PM EDT 025 10/30 Discontinued( Stop Taking at Discharge) potassium chloride (KLOR-CON M20) 20 MEQ tabletIndications: Hypokalemia Take 2 tablets (40 mEq total) by mouth daily. 60 tablet 2 025 10/31 Discontinued( Stop Taking at Discharge) thiamine HCl (VITAMIN B-1) 100 MG tablet Take 1 tablet (100 mg total) by mouth daily. 30 tablet 025 10/31 Discontinued( Stop Taking at Discharge) midodrine (PROAMATINE) 10 MG tablet Take 1 tablet (10 mg total) by mouth 3 times a day. 90 tablet 10/18/19 10:24 AM EDT 025 10/30 Discontinued( Stop Taking at Discharge) FLUoxetine (PROZAC) 20 MG capsule Take 1 capsule (20 mg total) by mouth daily. 30 capsule 2 10/18/19 10:24 AM EDT 025 11/20 Discontinued( Refill / Reorder) sodium bicarbonate 650 MG tablet Take 2 tablets (1,300 mg total) by mouth 3 times a day. 90 tablet 025 10/31 Discontinued ciprofloxacin HCl (CIPRO) 500 MG tablet Take 1 tablet (500 mg total) by mouth daily. 30 tablet 025 10/30 Discontinued( Stop Taking at Discharge) ursodioL (ACTIGALL) 300 mg capsule Take 1 capsule (300 mg total) by mouth 2 times a day. 60 capsule 025 10/30 Discontinued( Stop Taking at Discharge) ergocalciferol (ERGOCALCIFEROL) 1,250 mcg (50,000 unit) capsule Take 1 capsule (50,000 Units total) by mouth once a week. 4 capsule 2 11/03/19 25 10:20 AM EDT 11/25 Discontinued( Refill / Reorder) apixaban (ELIQUIS) 2.5 mg Tab Take 1 tablet (2.5 mg total) by mouth 2 times a day. 60 tablet 10/30 Discontinued sulfamethoxazole-t rimethoprim (BACTRIM) 400-80 mg per tablet Take 1 tablet by mouth daily. 30 tablet 2 11/03/19 10:20 AM EDT 11/25 Discontinued( Refill / Reorder) atovaquone (MEPRON) 750 mg/5 mL suspension Take 10 mLs (1,500 mg total) by mouth daily for 30 doses. 300 mL 2 10/30 Discontinued( Stop Taking at Discharge) fluconazole (DIFLUCAN) 200 MG tablet Take 1 tablet (200 mg total) by mouth daily for 30 days. 30 tablet 11/02 Discontinued predniSONE (DELTASONE) 5 MG tablet Take 4 tablets (20 mg total) by mouth daily. 120 tablet 2 11/03/19 10:20 AM EDT 11/11 Discontinued valGANciclovir (VALCYTE) 450 mg tablet Take 1 tablet (450 mg total) by mouth daily. 30 tablet 2 11/03/19 10:20 AM EDT 11/25 Discontinued( Refill / Reorder) aspirin 81 MG chewable tablet Chew 1 tablet (81 mg total) by mouth daily. 30 tablet 11 10/30 Discontinued( Stop Taking at Discharge) methocarbamoL (ROBAXIN) 500 MG tablet Take 1 tablet (500 mg total) by mouth 3 times a day. 90 tablet 10/30 Discontinued acetaminophen (TYLENOL) 325 MG tablet Take 3 tablets (975 mg total) by mouth every 8 hours. 200 tablet 11/03/19 25 10:20 AM EDT 11/25 Discontinued( Refill / Reorder) famotidine (PEPCID) 20 MG tablet Take 1 tablet (20 mg total) by mouth 2 times a day. 60 tablet 2 11/03/19 10:20 AM EDT 11/25 Discontinued( Refill / Reorder) insulin NPH isoph U-100 human 100 unit/mL (3 mL) InPn Inject 5 Units subcutaneously in the morning and at bedtime. 15 mL 2 10/31 Discontinued( Stop Taking at Discharge) DEXCOM G7 IN CLASSROOM TUTOR Misc Use reader as directed. 1 each 025 11/02 Discontinued( Stop Taking at Discharge) DEXCOM G7 SENSOR Radha Use 1 sensor as directed every 10 days. 3 each 11/02 Discontinued( Stop Taking at Discharge) mycophenolate (CELLCEPT) 250 mg capsule Take 2 capsules (500 mg total) by mouth 2 times a day. 120 capsule 5 11/25 Discontinued( Refill / Reorder) tacrolimus (PROGRAF) 1 MG capsule Take 10 capsules (10 mg total) by mouth 2 times a day. Use as directed 600 capsule 5 11/02 Discontinued apixaban (ELIQUIS) 2.5 mg Tab Take 1 tablet (2.5 mg total) by mouth 2 times a day. Last dose 11/26/24 60 tablet 11/02 Discontinued sodium bicarbonate 650 MG tablet Take 2 tablets (1,300 mg total) by mouth 2 times a day. 28 tablet 11/03/19 10:20 AM EDT 11/04 Discontinued( Therapy Completed / No Longer Needed) gabapentin (NEURONTIN) 100 MG capsule Take 1 capsule (100 mg total) by mouth 3 times a day. 90 capsule 11/03/19 10:20 AM EDT 11/25 Discontinued( Refill / Reorder) HYDROmorphone (DILAUDID) 2 MG tabletIndications: Abdominal pain, unspecified abdominal location Take 1 tablet (2 mg total) by mouth every 6 hours as needed for up to 7 days. 28 tablet 11/03/19 10:20 AM EDT 025 11/04 Discontinued( Refill / Reorder) NIFEdipine (PROCARDIA-XL) 30 MG (OSM) 24 hr tablet Take 1 tablet (30 mg total) by mouth daily. 30 tablet 11/03/19 10:20 AM EDT 11/25 Discontinued( Refill / Reorder) tacrolimus (PROGRAF) 1 MG capsule Take 5 capsules (5 mg total) by mouth 2 times a day. Use as directed 600 capsule 5 11/02 Discontinued torsemide (DEMADEX) 20 MG tablet Take 1 tablet (20 mg total) by mouth daily. 30 tablet 11/11 Discontinued apixaban (ELIQUIS) 2.5 mg Tab Take 1 tablet (2.5 mg total) by mouth 2 times a day for 24 days. Last dose 11/26/24 48 tablet 11/03/19 10:20 AM EDT 11/25 Discontinued( Therapy Completed / No Longer Needed) fluconazole (DIFLUCAN) 200 MG tablet Take 1 tablet (200 mg total) by mouth daily for 24 days. Last day 11/26/24 24 tablet 11/03/19 10:20 AM EDT 11/25 Discontinued( Therapy Completed / No Longer Needed) tacrolimus (PROGRAF) 1 MG capsule Take 5 capsules (5 mg total) by mouth 2 times a day. Use as directed 600 capsule 5 11/02 Discontinued linezolid (ZYVOX) 600 mg tablet Take 1 tablet (600 mg total) by mouth 2 times a day. 28 tablet 11/03/19 3:06 PM EDT 11/10 Discontinued( Therapy Completed / No Longer Needed) tacrolimus (PROGRAF) 1 MG capsule Take 6 capsules (6 mg total) by mouth 2 times a day. Use as directed 600 capsule 5 11/25 Discontinued( Refill / Reorder) HYDROmorphone (DILAUDID) 2 MG tabletIndications: Abdominal pain, unspecified abdominal location Take 1 tablet (2 mg total) by mouth every 6 hours as needed for up to 7 days. 28 tablet 11/11 Discontinued( Refill / Reorder) torsemide (DEMADEX) 20 MG tablet Take 0.5 tablets (10 mg total) by mouth daily. 30 tablet 025 11/25 Discontinued predniSONE (DELTASONE) 5 MG tablet Take 3 tablets (15 mg total) by mouth daily. 120 tablet 2 025 11/26 Discontinued( Refill / Reorder) HYDROmorphone (DILAUDID) 2 MG tabletIndications: Abdominal pain, unspecified abdominal location Take 1 tablet (2 mg total) by mouth every 6 hours as needed for up to 7 days. 28 tablet 025 11/25 Discontinued( Refill / Reorder) sodium bicarbonate 650 MG tabletIndications: metabolic acidosis Take 1 tablet (650 mg total) by mouth 2 times a day. Indications: metabolic acidosis 60 tablet 025 11/25 Discontinued( Refill / Reorder) gabapentin (NEURONTIN) 100 MG capsuleIndications :Encounter for therapeutic drug monitoring,S/P liver transplant ([facility]),Hypomagn esemia,Kidney transplant recipient,Hyperten kevin, unspecified type,Gastroesophag eal reflux disease, unspecified whether esophagitis present Take 1 capsule (100 mg total) by mouth 3 times a day. 90 capsule 11/25 Discontinued( Refill / Reorder) tacrolimus (PROGRAF) 1 MG capsuleIndications :Encounter for therapeutic drug monitoring,S/P liver transplant ([facility]),Hypomagn esemia,Kidney transplant recipient,Hyperten kevin, unspecified type,Gastroesophag eal reflux disease, unspecified whether esophagitis present Take 6 capsules (6 mg total) by mouth 2 times a day. Use as directed 600 capsule 5 025 11/25 Discontinued Hospital, Clinic, or Other Facility Administered Medication Ordered Dose Route Frequency Start Date End Date Status lidocaine HCL (XYLOCAINE) 2 % JelP 10 mLIndications:Retained ureteral stent of transplanted kidney ([facility]) 10 mL MM Once 11/25/2024 11/25/2024 Ended Active Problems Problem Noted Date Diagnosed Date Encounter for therapeutic drug monitoring 2024 S/P liver transplant 11/25/2024 Neck pain with history of cervical spinal [...] with SBP, s/p CTX x5d; will cont buttermaker ppx with Cipro 500mg daily - HE: [...] Encounters Date Type Department Care Team Description 11/26/2024 Telephone [facility] Liver Transplant at [address] [place] [address] Maureen Pantoja, RN Results 11/25/2024 10:50 AM EDT Office Visit [facility] Liver Transplant at [address] [place] [address] Leisa Juarez MD Kaur, Taranpreet 11/25/2024 10:20 AM EDT Office Visit [facility] Liver Transplant at [address] [place] [address] Lydia Sanchez MD Encounter for therapeutic drug monitoring (Primary Dx); S/P liver transplant (CMS-HCC); Hypomagnesemia; Kidney transplant recipient; Hypertension, unspecified type; Gastroesophageal reflux disease, unspecified whether esophagitis present; Abdominal pain, unspecified abdominal location 11/25/2024 9:00 AM EDT Procedure visit [facility] Urology at [facility] Office [address] [facility] [address] [place] [phone] Julieta Rogers PA Retained ureteral stent of transplanted kidney (CMS-HCC) (Primary Dx) 11/25/2024 Social Work [facility] Liver Transplant at [address] [place] [address] Kaylin Willard MSW 11/24/2024 Orders Only [facility] Liver Transplant at [address] [place] [address] Maureen Pantoja, RN 11/21/2024 Orders Only [facility] Urology at [facility] [address] [facility] [address] [place] [address] Vasile Gordillo MA 11/21/2024 Telephone [facility] Liver Transplant at [address] [place] [address] Maureen Pantoja, RN Results 11/21/2024 Chart Note [facility] Liver Transplant at [address] [place] [phone] Marlene Ro MA FK: 11/18 & 11/20 Pending 11/20/2024 Refill [facility] Liver Transplant at [address] [place] [address] Maureen Pantoja, RN 11/20/2024 Refill [facility] Liver Transplant at [address] [place] [address] Maureen Pantoja, RN 11/20/2024 Orders Only [facility] Liver Transplant at [address] [place] [address] Maureen Pantoja, RN S/P liver transplant ([facility]) (Primary Dx); Immunosuppression (CMS-HCC); Viral disease exposure; Alcohol use 11/18/2024 Telephone [facility] Liver Transplant at [address] [address] Maureen Pantoja, RN Results 11/18/2024 Chart Note [facility] Liver Transplant at [address] [address] Marlene Ro MA 11/11/2024 10:30 AM EDT Office Visit [facility] Liver Transplant at [address] [address] Unknown, Attending Provider Jessica Colon Kidney replaced by transplant (Primary Dx); Hypervolemia associated with renal insufficiency 11/11/2024 10:00 AM EDT Office Visit [facility] Liver Transplant at [address] [address] Cosmo Pacheco MD Quillin, Ralph Cutler III, MD Encounter for therapeutic drug monitoring (Primary Dx); Abdominal pain, unspecified abdominal location 11/11/2024 9:30 AM EDT Office Visit [facility] Psychiatry Transplant at [address] [address] Lizeth Warren PsyD PTSD (post-traumatic stress disorder) (Primary Dx) 11/11/2024 8:50 AM EDT [facility] [address] [place] [address] Harvey Domínguez III, MD Liver replaced by transplant ([facility]); Immunosuppressive management encounter following liver transplant ([facility]); Kidney transplant recipient 11/11/2024 Telephone [facility] Liver Transplant at [address] [address] Maureen Pantoja, RN Results 11/10/2024 Orders Only [facility] Liver Transplant at [address] [place] [address] Maureen Pantoja, ЮЛИЯ Liver transplant recipient ([facility]) (Primary Dx); Kidney transplant recipient; Immunosuppressive management encounter following liver transplant (CMS-HCC) 11/10/2024 Orders Only [facility] Liver Transplant at [address] [address] Maureen Pantoja, ЮЛИЯ 11/09/2024 Telephone [facility] [address] [place] [address] Unknown, Attending Provider After Hours Call (Passing blood through stool states started this morning has had 3 bloody bowel movements kidney and liver txp done 2 weeks ago) 11/07/2024 Telephone [facility] Liver Transplant at [address] [address] Marlene Ro MA 11/07/2024 Telephone [facility] Liver Transplant at [address] [place] [address] Maureen Pantoja, ЮЛИЯ Results 11/07/2024 Chart Note [facility] Liver Transplant at [address] [address] Marlene Ro MA FK Pending 11/04/2024 10:10 AM EDT Office Visit [facility] Liver Transplant at [address] [address] Leisa Juarez MD Kidney transplant recipient (Primary Dx); Diarrhea of presumed infectious origin; Hypomagnesemia; Hypervolemia, unspecified hypervolemia type; Liver transplant recipient (CMS-HCC); Other hypervolemia; Hyperparathyroidism ([facility]); Nausea and vomiting, unspecified vomiting type 11/04/2024 8:40 AM EDT Office Visit [facility] Liver Transplant at [address] [place] [address] Cosmo Pacheco MD Liver transplant recipient ([facility]) (Primary Dx); Alcoholic cirrhosis of liver with ascites (CMS-HCC); Kidney transplant recipient; Acute kidney injury superimposed on CKD ([facility]); CKD (chronic kidney disease) stage 4, GFR 15-29 ml/min (CMS-HCC); Immunosuppressive management encounter following liver transplant ([facility]); Abdominal pain, unspecified abdominal location 11/04/2024 Telephone [facility] Liver Transplant at [address] [address] Maureen Pantoja, ЮЛИЯ Results 11/04/2024 Results Follow-Up [facility] Liver Transplant at [address] [address] Maureen Pantoja, ЮЛИЯ Tacrolimus level, Hepatic Function Panel, Renal Function Panel w/EGFR, Additional followed-up results: 3 11/04/2024 Social Work [facility] Liver Transplant at [address] [address] Kaylin Willard MSW 11/04/2024 Nutrition [facility] Kidney Transplant at [address] [phone] Ben Weiss, DMITRY 11/03/2024 Chart Note [facility] Liver Transplant at [address] [address] Hillary Fernandes, TaniD Liver Transplant Pharmacy Discharge Note 11/03/2024 Telephone [facility] Liver Transplant at [address] [address] Marisela Martinez MA 10/31/2024 Orders Only [facility] Liver Transplant at [address] [address] Harvey Domínguez III, MD Liver replaced by transplant ([facility]) (Primary Dx); Immunosuppressive management encounter following liver transplant ([facility]) 10/29/2024 Travel 10/29/2024 Education Chart Note [facility] Liver Transplant at [address] [place] [place] [phone] Crista Power, RN 10/27/2024 2:34 AM EDT Anesthesia Event [facility] [address] [place] [phone] Rocky Manning MD Kopel, Lior, MD 10/27/2024 2:00 AM EDT - 10/27/2024 6:54 AM EDT Surgery [facility] [phone] Harvey Domínguez III, MD Donor Kidney Transplant , Back Bench Preparation Donor Kidney, Baseline Kidney transplant biopsy , Insertion of Indwelling Stent , Removal of Perihepatic packing 10/27/2024 Pharmacy Services [facility] [address] [place] [phone] Opal Cox, PharmD 10/27/2024 Chart Note [facility] Kidney Transplant at [address] [phone] Karen Rosen, RN I have verified that the donor serologies entered in [facility] match the donor 10/27/2024 Chart Note [facility] Liver Transplant at [address] [place] [place] [address] Crista Power, RN I introduced myself as inpatient liver/kidney revenue coordinator, 10/27/2024 Orders Only [facility] Pan[facility] [address] [place] [phone] Abdulkadir Gaspar MD 10/26/2024 Chart Note [facility] Kidney Transplant at [address] [place] [phone] Geri Vasquez RN 10/26/2024 Chart Note [facility] Liver Transplant at [address] [place] [address] Geri Vasquez RN 10/25/2024 10:54 PM EDT Anesthesia Event [facility] [address] [place] [phone] Eber Quinones MD Edwards, Anna, MD 10/25/2024 10:30 PM EDT - 10/26/2024 6:12 AM EDT Surgery [facility] [address] [place] [address] Harvey Domínguez III, MD LIVER TRANSPLANT 10/25/2024 8:46 PM EDT - 11/02/2024 6:23 PM EDT Hospital Encounter [facility] [address] [place] [phone] Harvey Domínguez III, MD Haugen, Christine, MD Acute kidney injury superimposed on CKD ([facility]) (Primary Dx); Prophylactic antibiotic; Prolonged QT interval; Immunosuppression ([facility]); Abdominal pain, unspecified abdominal location Discharge Disposition: Home or Self Care WITHOUT Home Care Services 10/25/2024 Travel 10/25/2024 Telephone [facility] Liver Transplant at [address] [place] [address] Krissy Crowell, ЮЛИЯ DDLT patient instructions 10/25/2024 Telephone [facility] Liver Transplant at [address] [place] [phone] Krissy Crowell, ЮЛИЯ 10/24/2024 Telephone [facility] Renal Hypertension Clinic at [address] [place] [address] Joann Davies MA Appointment 10/22/2024 Telephone [facility] Liver Transplant at [address] [place] [address] Mary Butler RN 10/22/2024 Chart Note [facility] Kidney Transplant at [address] [place] [address] Gladis Rainey RN Received most recent eGFR from today with result of 21. Pt meets CKD 10/22/2024 Chart Note [facility] Liver Transplant at [address] [place] [address] Faraz Carballo, ЮЛИЯ 2nd ABO verified for [facility] listing at the request of JOSE G Butler. 10/22/2024 Telephone [facility] Psychiatry Transplant at [address] [place] [address] Lizeth Warren PsyD 10/22/2024 Chart Note [facility] [address] [place] [address] Aaron Gonzalez MD Candidacy for a simultaneous liver-kidney transplant 10/22/2024 Status Update [facility] Kidney Transplant at [address] [place] [address] Aaron Gonzalez MD 10/22/2024 Chart Note [facility] Liver Transplant at [address] [place] [address] Mary Butler, RN UNOS VERIFICATION CHECK FORM 10/22/2024 Orders Only [facility] Pancreas Transplant at [facility] [address] [place] [phone] Abdulkadir Gaspar MD 10/22/2024 Chart Note [facility] Liver Transplant at [address] [place] [address] Mary Butler, RN 10/21/2024 Telephone [facility] Gastroenterology at [facility] [address] [facility] [address] [place] [address] Gerri Peterson MD Medication Management (Requesting RX for New Medication ) 10/21/2024 Refill [facility] Gastroenterology at [facility] [address] [facility] [address] [place] [address] Gerri Peterson MD 10/20/2024 9:10 AM EDT - 10/20/2024 11:59 PM EDT Hospital Encounter [facility] Radiology [address] [place] [address] System, Provider Not In Discharge Disposition: Home or Self Care WITHOUT Home Care Services 10/20/2024 9:10 AM EDT - 10/20/2024 11:59 PM EDT Hospital Encounter [facility] Radiology [address] [place] [address] System, Provider Not In Discharge Disposition: Home or Self Care WITHOUT Home Care Services 10/20/2024 9:10 AM EDT - 10/20/2024 11:59 PM EDT Hospital Encounter [facility] Radiology [address] [place] [address] System, Provider Not In Discharge Disposition: Home or Self Care WITHOUT Home Care Services 10/20/2024 9:10 AM EDT - 10/20/2024 11:59 PM EDT Hospital Encounter [facility] Radiology [address] [place] [address] System, Provider Not In Discharge Disposition: Home or Self Care WITHOUT Home Care Services 10/20/2024 9:10 AM EDT - 10/20/2024 11:59 PM EDT Hospital Encounter [facility] Radiology [address] [place] [address] System, Provider Not In Discharge Disposition: Home or Self Care WITHOUT Home Care Services 10/20/2024 9:10 AM EDT - 10/20/2024 11:59 PM EDT Hospital Encounter [facility] Radiology [address] [place] [address] System, Provider Not In Discharge Disposition: Home or Self Care WITHOUT Home Care Services 10/20/2024 9:10 AM EDT - 10/20/2024 11:59 PM EDT Hospital Encounter [facility] Radiology [address] [place] [address] System, Provider Not In Discharge Disposition: Home or Self Care WITHOUT Home Care Services 10/20/2024 Orders Only [facility] Pancreas Transplant at [facility] [address] [place] [address] Abdulkadir Gaspar MD 10/20/2024 Telephone [facility] Gastroenterology at [facility] [address] [facility] [address] [place] [address] Gerri Peterson MD Prescription Issue (RX Clarification Request ) 10/20/2024 Refill [facility] Gastroenterology at [facility] [address] [facility] [address] [place] [address] Gerri Peterson MD 10/20/2024 Telephone [facility] Liver Transplant at [address] [place] [address] Mary Butler RN 10/17/2024 Chart Note [facility] Kidney Transplant at [address] [place] [address] Anny Cote RN Copy of HLA report scanned into the media tab. Will follow up on GFR 10/17/2024 Chart Note [facility] Kidney Transplant at [address] [place] [address] Anny Cote RN 10/17/2024 Pharmacy Services [facility] Discharge Pharmacy [address] [place] [address] Ridge Menjivar [facility] 10/14/2024 8:42 AM EDT - 10/14/2024 9:27 AM EDT Surgery [facility] Cardiac Mobility Engineer [address] [place] [address] Irving Matta MD Left Heart Cath 10/14/2024 Chart Note [facility] Kidney Transplant at [address] [address] Dean Robles [facility] [address] 10/10/2024 12:01 PM EDT Anesthesia Event [facility] ENDOSCOPY [address] [place] [address] Cady Bhat MD Nguyen, Quinn, MD 10/10/2024 10:36 AM EDT - 10/10/2024 11:06 AM EDT Surgery [facility] ENDOSCOPY [address] [place] [address] Lino Soto MD EGD 10/09/2024 Social Work [facility] Liver Transplant at [address] [address] Kaylin Willard MSW 10/09/2024 Chart Note [facility] Kidney Transplant at [address] [place] [address] Dean Robles [facility] [address] call from Elle buckley [facility] fx [phone] 10/09/2024 Chart Note [facility] Kidney Transplant at [address] [place] [address] [place] [address] Dean Robles [facility] [address] 10/07/2024 Chart Note [facility] Liver Transplant at [address] [place] [address] Mary Butler, RN Spoke with Blair Anderson today for 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 Message to nephrology 10/07/2024 Chart Note [facility] Kidney Transplant at [address] [place] [address] Chey Nicole MA This MA received new referral for PT. Will FU once financially cleared. 10/07/2024 Chart Note [facility] Kidney Transplant at [address] [place] [address] Anny Cote RN Simultaneous Liver-Kidney Transplant Referral 10/06/2024 Travel 10/05/2024 11:12 PM EDT - 10/17/2024 10:29 AM EDT Hospital Encounter [facility] [address] [place] [address] Gómez Blanchard MD Wood, Sharice N, MD [...] WITHOUT Home Care Services 10/05/2024 Telephone [facility] [address] [place], [place] [phone] Unknown, Attending Provider After Hours Call 10/01/2024 Telephone [facility] Liver Transplant at [address] [place] [address] Armand [place], RN 09/30/2024 Social Work [facility] Liver Transplant at [address] [place] [address] Kaylin Willard MSW 09/29/2024 11:00 AM EDT Office Visit [facility] Psychiatry Transplant at [address] [place] [address] Lizeth Warren PsyD PTSD (post-traumatic stress disorder) (Primary Dx); Alcohol use disorder 09/26/2024 Abstract [facility] Gastroenterology at [facility] Office [address] [facility] [address] [place] [address] Gerri Peterson MD 09/25/2024 11:25 AM EDT [facility] [address] [place] [address] Gerri Peterson MD Cirrhosis of liver with ascites, unspecified hepatic cirrhosis type (CMS-HCC); Pre-transplant evaluation for chronic liver disease; Alcoholic cirrhosis of liver without ascites (CMS-HCC) 09/25/2024 Social Work [facility] Liver Transplant at [address] [place] [address] Kaylin Willard MSW 09/25/2024 Telephone [facility] Interventional Radiology [address] [place] [address] Thad De Leon Appointment 09/25/2024 Orders Only [facility] Liver Transplant at [address] [place] [address] Mary Butler, RN Pre-transplant evaluation for chronic liver disease (Primary Dx); Alcoholic cirrhosis of liver without ascites (CMS-HCC) 09/24/2024 Orders Only [facility] Gastroenterology at [facility] [address] [facility] [address] [place] [address] Gerri Peterson MD Cirrhosis of liver with ascites, unspecified hepatic cirrhosis type (CMS-HCC) (Primary Dx) 09/24/2024 Orders Only [facility] Gastroenterology at [facility] [address] [facility] [address] [place] [address] Gerri Peterson MD Cirrhosis of liver with ascites, unspecified hepatic cirrhosis type (CMS-HCC) (Primary Dx) 09/23/2024 Telephone [facility] Gastroenterology at [facility] [address] [facility] [address] [place] [phone] Gerri Peterson MD Orders (Order Clarification Request/) 09/22/2024 Telephone [facility] Gastroenterology at [facility] [address] [facility] [address] [place] [address] Gerri Peterson MD Orders (Order Clarification Request ) 09/17/2024 Telephone [facility] Liver Transplant at [address] [place] [address] Kaylin Willard MSW 09/17/2024 Abstract [facility] Gastroenterology at [facility] [address] [facility] [address] [place] [address] Gerri Peterson MD 09/17/2024 Telephone [facility] Liver Transplant at [address] [place] [address] Kaylin Willard MSW 09/16/2024 Telephone [facility] Gastroenterology at [facility] [address] [facility] [address] [place] [address] Gerri Peterson MD Medical Management (Plan of Care Inquiry/Question ) 09/10/2024 Telephone [facility] Liver Transplant at [facility] [address] [facility] [place] [address] [place] [address] Kaylin Willard MSW 09/05/2024 Orders Only [facility] Gastroenterology at [facility] Office [address] [facility] [place] [address] [place] [address] Chris Orosco MD Cirrhosis of liver with ascites, unspecified hepatic cirrhosis type (CMS-HCC) (Primary Dx) 09/05/2024 Travel 09/03/2024 4:56 AM EDT - 09/09/2024 6:25 PM EDT Hospital Encounter [facility] [address] [place] [address] Ana Maria Ramey MD Zackary, Joseph, MD Morgenlander, Adam M, MD Liebler, Hillary, MD Stickles, Allison Michele, MD Alcoholic cirrhosis of liver with ascites (CMS-HCC) (Primary Dx); Abdominal pain, unspecified abdominal location; NADIYA (acute kidney injury) (CMS-HCC) [N17.9] Discharge Disposition: Home or Self Care WITHOUT Home Care Services 09/03/2024 Telephone [facility] Interventional Radiology [address] [place] [address] Thad De Leon Appointment 09/02/2024 4:00 PM EDT [facility] [address] [facility] [place] [address] [place] [phone] Doron Botello MD Alcoholic cirrhosis of liver without ascites (CMS-HCC); Cirrhosis of liver with ascites, unspecified hepatic cirrhosis type (CMS-HCC) 09/02/2024 2:40 PM EDT Office Visit [facility] Gastroenterology at [facility] [address] [facility] [place] [address] [place] [address] Gerri Peterson MD Cirrhosis of liver with ascites, unspecified hepatic cirrhosis type (CMS-HCC) (Primary Dx); Alcoholic cirrhosis of liver without ascites (CMS-HCC) 09/02/2024 Orders Only [facility] [address] [place], [place] [phone] Noé Giordano MD Hypokalemia (Primary Dx) 09/02/2024 Telephone [facility] [address] [place], [place] [phone] Unknown, Attending Provider After Hours Call 09/02/2024 Orders Only [facility] Liver Transplant at [facility] [address] [place] [address] [place] [phone] Mary Butler RN Pre-transplant evaluation for chronic liver disease (Primary Dx); Alcoholic cirrhosis of liver without ascites (CMS-HCC) 09/02/2024 Telephone [facility] Gastroenterology at [facility] Office [address] [facility] [place] [address] [place] [address] Gerri Peterson MD Orders (Order Request (New) ) 09/02/2024 Telephone [facility] Gastroenterology at [facility] [address] [facility] [place] [address] [place] [phone] Chris Orosco MD from Last 3 Months [...] Recorded In the past 12 months has [employer], [employer], oil, or water [employer] threatened to shut off services in your [...] Mass Index 25.32 11/25/2024 10:39 AM EDT Plan of Treatment Upcoming Encounters Date Type Department Care Team (Late st Contact Info) Description 12/05/2024 8:01 AM EDT Hospital Encounter [facility] ENDOSCOPY [address] [place] [address] Chris Orosco MD [address] [place] [address] 12/05/2024 8:01 AM EDT - 12/05/2024 8:31 AM EDT Surgery [facility] ENDOSCOPY [address] [place] [address] Chris Orosco MD [address] [place] [address] EGD Scheduled Procedures Name Priority Associated Diagnoses Date/Ti me EGD Cirrhosis of liver with ascites, unspecified hepatic cirrhosis type ([facility]-HCC) 12/05/2024 8:01 AM EDT Health Maintenance [...] Influenza (MyC adler) (#1) 2025 03/12/2024, 03/12/2023 Thyroid Function/TSH (MyChart) 10/07/2025 0 10/07/2024, 10/06/2024, 09/03/2024 Alcohol Misuse Screening 10/25/2025 025, 10/05/2024, 09/03/2024, Additional history exists Depression Screening 11/25/2025 11/25/2024, 11/25/2024, 09/29/2024, Additional history exists Renal Function/GFR 11/25/2025 11/25/2024, 0 11/20/2024, 11/18/2024, Additional history exists Immunization: DTaP/Tdap/Td ( 3 - Td or Tdap) 06/03/2028 06/03/2018, 09/13/2010 Hepatitis C Screening (MyChart) Completed 10/25/2024, 10/07/2024, 10/06/2024, Additional history exists HIV Screening Completed 11/25/2024, 10/12, 10/07/2024 Procedures Procedure Name Priority Date/Time Associated Diagnosis Comments HIV-1 RNA, QUANTITATIVE, PCR Routine 11/25/2024 8:42 AM EDT S/P liver transplant (CMS-HCC) Immunosuppression ([facility]-HCC) Viral disease exposure MAGNESIUM Routine 11/25/2024 8:42 AM EDT Kidney transplant recipient DIFFERENTIAL Routine 11/25/2024 8:42 AM EDT Liver replaced by transplant (CMS-HCC) Immunosuppressive management encounter following liver transplant (CMS-HCC) HEPATIC FUNCTION PANEL Routine 8:42 AM EDT Liver replaced by transplant (CMS-HCC) Immunosuppressive management encounter following liver transplant (CMS-HCC) TACROLIMUS LEVEL Routine 11/25/2024 8:42 AM EDT Liver replaced by transplant (CMS-HCC) Immunosuppressive management encounter following liver transplant (CMS-HCC) CBC Routine 11/25/2024 8:42 AM EDT Cirrhosis of liver with ascites, unspecified hepatic cirrhosis type (CMS-HCC) COMPREHENSIVE METABOLIC PANEL Routine 11/25/2024 8:42 AM EDT Cirrhosis of liver with ascites, unspecified hepatic cirrhosis type (CMS-HCC) TACROLIMUS LEVEL Routine 11/20/2024 8:00 AM EDT RENAL FUNCTION PANEL W/O EGFR Routine 11/20/2024 8:00 AM EDT CBC AND DIFFERENTIAL Routine 11/20/2024 8:00 AM EDT HEPATIC FUNCTION PANEL Routine 8:00 AM EDT TACROLIMUS LEVEL Routine 11/18/2024 7:45 AM EDT HEPATIC FUNCTION PANEL Routine 7:45 AM EDT RENAL FUNCTION PANEL W/O EGFR Routine 11/18/2024 7:45 AM EDT CBC AND DIFFERENTIAL Routine 11/18/2024 7:45 AM EDT RENAL FUNCTION PANEL W/O EGFR [...] Routine 10/31/2024 10:19 AM EDT US DUPLEX [id number] COMPLETE Routine 10/31/2024 10:19 AM EDT ECG [...] STAT 10/28/2024 4:23 PM EDT US DUPLEX VHT-[id number]-[id number] COMPLETE STAT 10/28/2024 4:23 PM EDT TRANSFUSE [...] 6:15 AM EDT PREPARE CRYOPRECIPITATE Routine 10/29/19 25 6:15 AM EDT PREPARE FRESH FROZEN PLASMA Routine 10/28/2024 6:15 AM EDT PREPARE CRYOPRECIPITATE Routine 06/17/20 25 6:15 AM EDT POC GLU MONITORING DEVICE [...] STAT 10/27/2024 9:51 AM EDT US DUPLEX [id number] COMPLETE STAT 10/27/2024 9:51 AM EDT US [...] Acute kidney injury superimposed on CKD (CMS-HCC) [place] RENAL ALTRNSPLJ IMPLTJ GRF W/STEM CUTTER NEPHRECTOMY 10/27/2024 2:32 AM EDT Acute [...] AM EDT CARISA RHYTHM STRIP - SCAN 06/04/20 25 8:02 PM EDT CARISA RHYTHM STRIP [...] LIPID PANEL Routine 10/07/2024 6:37 PM EDT [id number] (AAT) QUANTITATION & MUTATION Routine 10/07/2024 6:37 [...] Routine 10/07/2024 3:48 PM EDT US DUPLEX NKV-[id number]-LEDZHJZ COMPLETE Routine 10/07/2024 3:48 PM EDT CARISA [...] 4:01 AM EDT UPPER RESPIRATORY VIRAL/BACTERIAL PANEL-MANAGER TECHNICAL SALES ONLY Routine 10/06/2024 3:12 AM EDT XR [...] STAT 09/03/2024 10:30 AM EDT US DUPLEX [id number] COMPLETE STAT 09/03/2024 10:30 AM EDT URINALYSIS, [...] Months Results * (ABNORMAL) Hepatic Function Panel (11/25/2024 8:42 AM EDT) Only the most recent of43 resultswithin the time period is included. Total Bilirubin 0.7 0.0 - 1.5 mg/dL 11/25/2024 10:[address] [facility] Bilirubin, Direct 0.20 0.00 - 0.40 mg/dL 11/25/2024 10:[address] [facility] AST 9(L) 13 - 39 U/L 11/25/2024 10:[address] [facility] ALT 22 7 - 52 U/L 11/25/2024 10:[address] [facility] Alkaline Phosphatase 198(H) 36 - 125 U/L 11/25/2024 10:[address] [facility] Total Protein 7.0 6.4 - 8.9 g/dL 11/25/2024 10:[address] [facility] Albumin 4.5 3.5 - 5.7 g/dL 11/25/2024 10:[address] [facility] Bilirubin, Indirect 0.50 0.00 - 1.10 mg/dL 11/25/2024 10:[address] [facility] Plasma 11/25/2024 8:42 AM EDT 11/25/2024 9:[address] [facility] - 11/25/2024 10:20 AM EDT Standing orders to be drawn: Every Sunday and before 9am and prior to patient taking morning medications. Liver Transplant Fax results to [phone] Call Critical results to [phone] DO NOT REPLACE RENAL PANEL or HEPATIC FUNCTION PANEL w/ CMP, BMP or HEPATIC PROFILE us Harvey Domínguez III, MD LAB BLOOD ORDERABLE S Final Result [facility] [address] * HIV-1 RNA, Quantitative, PCR (11/25/2024 8:42 AM EDT) HIV 1 Copies Not Detected copies/mL 11/26/2024 10:[address] [facility] Comment:Test methodology for HIV-1 RNA quantification is an FDA-approved nucleic acid amplification assay. The Lower Limit of Quantitation (LLoQ) is 20 copies/mL. The linear range is 20- to 10,000,000 copies/mL. The Limit of Detection (LoD) is 13.2 copies/mL. The reference range is Not Detected. HIV [id number] See Note [id number] /mL 11/26/2024 10:[address] [facility] Comment:HIV-1 RNA not detect ed. Plasma 11/25/2024 8:42 AM EDT 11/25/2024 10:[address] [facility] - 11/26/2024 10:57 AM EDT One time lab order to be collected with next set of standing liver transplant labs. UNOS requirement. Please fax all results to [phone]. Call critical results to [phone]. Harvey Domínguez III, MD LAB BLOOD ORDERABLE S Final Result Performing Organization Address [facility] Co de Phone Number [facility] [address] [facility]. [address] * Tacrolimus level (11/25/2024 8:42 AM EDT) Only the most recent of13 resultswithin the time period is included. [facility] Tacrolimus (LC-MS) 11.6 3.0 - 15.0 ng/mL 11/25/2024 1:[address] [facility] Comment:Performed via liquid chromatography tandem [...] 8:42 AM EDT 11/25/2024 9:44 AM EDT formerly [facility] - 11/25/2024 1:14 PM EDT Standing orders to be drawn: Every Sunday and before 9am and prior to patient taking morning medications. Liver Transplant Fax results to [phone] Call Critical results to [phone] Harvey Domínguez III, MD LAB BLOOD ORDERABLE S Final Result Performing Organization Address City/[facility]/ZIP Co de Phone Number [facility] [address] [facility]. [address] * Differential (11/25/2024 8:42 AM EDT) Only the most recent of7 resultswithin the time period is included. Neutrophils Relative 73.2 40.0 - 80.0 % 11/25/2024 10:[address] [facility] Lymphocytes Relative 19.2 15.0 - 45.0 % 11/25/2024 10:[address] [facility] Monocytes Relative 6.3 0.0 - 12.0 % 11/25/2024 10:[address] [facility] Eosinophils Relative 0.4 0.0 - 8.0 % 11/25/2024 10:[address] [facility] Basophils Relative 0.9 0.0 - 1.0 % 11/25/2024 10:[address] [facility] nRBC 0 0 - 0 /100 WBC 11/25/2024 10:[address] [facility] Neutrophils Absolute 5,929 1,520 - 8,640 /uL 11/25/2024 10:[address] [facility] Lymphocytes Absolute 1,555 570 - 4,860 /uL 11/25/2024 10:[address] [facility] Monocytes Absolute 510 0 - 1,296 /uL 11/25/2024 10:[address] [facility] Eosinophils Absolute 32 0 - 864 /uL 11/25/2024 10:[address] [facility] Basophils Absolute 73 0 - 108 /uL 11/25/2024 10:[address] [facility] Whole Blood 11/25/2024 8:42 AM EDT 11/25/2024 9:44 AM EDT Narrative [facility] - 11/25/2024 10:25 AM EDT Standing orders to be drawn: Every Sunday and before 9am and prior to patient taking morning medications. Liver Transplant Fax results to [phone] Call Critical results to [phone] us Harvey Domínguez III, MD LAB BLOOD ORDERABLE S Final Result [facility] [address] * (ABNORMAL) CBC (11/25/2024 8:42 AM EDT) Only the most recent of48 resultswithin the time period is included. WBC 8.1 3.8 - 10.8 10E3/uL 11/25/2024 10:[address] [facility] RBC 3.71(L) 4.20 - 5.80 10E6/uL 11/25/2024 10:[address] [facility] Hemoglobin 11.7(L) 13.2 - 17.1 g/dL 11/25/2024 10:[address] [facility] Hematocrit 33.8(L) 38.5 - 50.0 % 11/25/2024 10:[address] [facility] MCV 91.1 80.0 - 100.0 fL 11/25/2024 10:[address] [facility] MCH 31.5 27.0 - 33.0 pg 11/25/2024 10:[address] [facility] MCHC 34.6 32.0 - 36.0 g/dL 11/25/2024 10:[address] [facility] RDW 20.0(H) 11.0 - 15.0 % 11/25/2024 10:[address] [facility] Platelets 193 140 - 400 10E3/uL 11/25/2024 10:[address] [facility] Comment:Slide Reviewed for P LT Clumps. None Seen. MPV 6.9(L) 7.5 - 11.5 fL 11/25/2024 10:[address] [facility] Whole Blood 11/25/2024 8:42 AM EDT 11/25/2024 9:44 AM EDT us Gerri Peterson MD LAB BLOOD ORDERABLES Final Resu lt [facility] [address] * (ABNORMAL) Magnesium (11/25/2024 8:42 AM EDT) Only the most recent of42 resultswithin the time period is included. Magnesium 1.4(L) 1.5 - 2.5 mg/dL 11/25/2024 10:[address] [facility] Plasma 11/25/2024 8:42 AM EDT 11/25/2024 9:47 AM EDT us Caron Santos CLERK ANALYST LAB BLOOD ORDERABLES Denisse l Result [facility] [address] [id number] * (ABNORMAL) Comprehensive metabolic panel (11/25/2024 8:42 AM EDT) Only the most recent of6 resultswithin the time period is included. Sodium 141 133 - 146 mmol/L 11/25/2024 10:[address] [facility] Potassium 4.3 3.5 - 5.3 mmol/L 11/25/2024 10:[address] [facility] Chloride 106 98 - 110 mmol/L 11/25/2024 10:[address] [facility] CO2 23 21 - 33 mmol/L 11/25/2024 10:[address] [facility] Anion Gap 12 3 - 16 mmol/L 11/25/2024 10:[address] [facility] BUN 43(H) 7 - 25 mg/dL 11/25/2024 10:[address] [facility] Creatinine 1.59(H) 0.60 - 1.30 mg/dL 11/25/2024 10:[address] [facility] Glucose 93 70 - 100 mg/dL 11/25/2024 10:[address] [facility] Calcium 10.0 8.6 - 10.3 mg/dL 11/25/2024 10:[address] [facility] Total Bilirubin 0.7 0.0 - 1.5 mg/dL 11/25/2024 10:[address] [facility] AST 9(L) 13 - 39 U/L 11/25/2024 10:[address] [facility] ALT 22 7 - 52 U/L 11/25/2024 10:20 AM EDT [facility] Alkaline Phosphatase 198(H) 36 - 125 U/L 11/25/2024 10:[address] [facility] Total Protein 7.0 6.4 - 8.9 g/dL 11/25/2024 10:[address] [facility] Albumin 4.5 3.5 - 5.7 g/dL 11/25/2024 10:[address] [facility] Osmolality, Calculated 303 278 - 305 mOsm/kg 11/25/2024 10:[address] [facility] EGFR 56 11/25/2024 10:[address] [facility] Comment:As of 2021, the estimated [...] Disease. Am J Kidney Dis. 2020. Plasma 11/25/2024 8:42 AM EDT 11/25/2024 9:47 AM EDT Gerri Peterson MD LAB BLOOD ORDERABLES Final Resu lt [facility] [address] * (ABNORMAL) CBC and differential (11/20/2024 8:00 AM EDT) Only the most recent of5 resultswithin the time period is included. Hemoglobin 10.5(A) 13.5 - 17.5 g/dL Hematocrit 32.2(A) 41 - 53 % RDW 18.8(A) 11.5 - 14.5 % Lymphocytes Absolute 1.1 / L Monocytes Absolute 0.4 / L Eosinophils Absolute 0.0 / L Basophils Absolute 0.1 / L Neutrophils Relative 74.7 46 - 78 % Lymphocytes Relative 17.5(A) 18 - 52 % Monocytes Relative 5.8 3 - 10 % Eosinophils Relative 0.3 0 - 6 % Basophils Relative 0.9 0 - 3 % Neutrophils Absolute 4.8 / L MCH 30.9 26.0 - 34.0 pg MCHC 32.6 30 - 37 g/dL MCV 94.7 82.0 - 108.0 fL Platelets 151 K/ L RBC 3.40(A) 4.50 - 5.90 10^6/ L WBC 6.4 10^3/mL Blood Narrative Resulting Agency Comment Historical Provider MD LAB BLOOD ORDERABLES Denisse l Result * (ABNORMAL) Renal Function Panel w/o EGFR (11/20/2024 8:00 AM EDT) Only the most recent of7 resultswithin the time period is included. Glucose 97 mg/dL BUN 36(A) 4 - 21 mg/dL CO2 28(A) 13 - 22 mmol/L Creatinine 1.00 0.6 - 1.3 mg/dL Potassium 4.2 3.4 - 5.3 mmol/L Sodium 139 137 - 147 mmol/L Chloride 100 99 - 108 mmol/L Phosphorus 6.2(A) 2.5 - 4.9 mg/dL Calcium 9.9 8.7 - 10.7 mg/dL EGFR 82 mg/dL Albumin 4.2 3.5 - 5.0 g/dL Blood Narrative Resulting Agency Comment Historical Provider MD LAB BLOOD ORDERABLES Denisse l Result * (ABNORMAL) Post Kidney Transplant Urine Culture (11/11/2024 9:13 AM EDT) Only the most recent of3 resultswithin the time period is included. Culture Result Enterococcus faecium(A) [facility] Comment: <1,000 cfu/mL Identified by MALDI-TOF MS No Further Workup Midstream Urine URINE SPECIMEN / Unknown 11/11/2024 9:13 AM EDT 11/11/2024 10:17 AM EDT Caron Santos CNP MICROBIOLOGY - GENERAL OR DERABLES Final Result [facility] [address] [place] [id number], [facility] * (ABNORMAL) Renal Function Panel w/EGFR (11/11/2024 9:13 AM EDT) Only the most recent of40 resultswithin the time period is included. Sodium 141 133 - 146 mmol/L 11/11/2024 10:[address] [facility] Potassium 4.6 3.5 - 5.3 mmol/L 11/11/2024 10:[address] [facility] Chloride 108 98 - 110 mmol/L 11/11/2024 10:[address] [facility] CO2 24 21 - 33 mmol/L 11/11/2024 10:[address] [facility] Anion Gap 9 3 - 16 mmol/L 11/11/2024 10:[address] [facility] BUN 27(H) 7 - 25 mg/dL 11/11/2024 10:[address] [facility] Creatinine 1.14 0.60 - 1.30 mg/dL 11/11/2024 10:[address] [facility] Glucose 97 70 - 100 mg/dL 11/11/2024 10:[address] [facility] Calcium 8.6 8.6 - 10.3 mg/dL 11/11/2024 10:[address] [facility] Phosphorus 4.4 2.1 - 4.7 mg/dL 11/11/2024 10:[address] [facility] Albumin 3.8 3.5 - 5.7 g/dL 11/11/2024 10:[address] [facility] Osmolality, Calculated 297 278 - 305 mOsm/kg 11/11/2024 10:[address] [facility] EGFR 83 11/11/2024 10:[address] [facility] Comment:As of 2021, the estimated [...] morning medications. Liver Transplant Fax results to [phone] Call Critical results to [phone] DO NOT REPLACE RENAL PANEL or HEPATIC FUNCTION PANEL w/ CMP, BMP or HEPATIC PROFILE us aHrvey Domínguez III, MD LAB BLOOD ORDERABLE S Final Result [facility] [address] [place] [address], [facility] * Protein / creatinine ratio, urine (11/11/2024 9:13 AM EDT) Only the most recent of2 resultswithin the time period is included. Creatinine, Urine 71.40 mg/dL 11/11/2024 10:[address] [facility] Comment:Reference range not established for this test. Total Protein, Ur 28 mg/dL 11/11/2024 10:[address] [facility] Comment:Reference range not established for this test. Prot/Creat Ratio, Ur 0.39 ratio 11/11/2024 10:[address] [facility] Urine 11/11/2024 9:13 AM EDT 11/11/2024 10:12 AM EDT Caron Santos CLERK ANALYST URINE ORDERABLES Final Re sult [facility] [address] [place] [address], [facility] * (ABNORMAL) Urinalysis w/Rfl to Microscopic (11/11/2024 9:13 AM EDT) Only the most recent of5 resultswithin the time period is included. Color, UA Straw Yellow,Straw 11/11/2024 10:[address] [facility] Clarity, UA Clear Clear 11/11/2024 10:[address] [facility] Specific Manning, UA 1.015 1.005 - 1.035 11/11/2024 10:[address] [facility] pH, UA 6.0 5.0 - 8.0 11/11/2024 10:[address] [facility] Protein, UA Negative Negative mg/dL 11/11/2024 10:[address] [facility] Glucose, UA Negative Negative mg/dL 11/11/2024 10:[address] [facility] Ketones, UA Negative Negative mg/dL 11/11/2024 10:[address] [facility] Bilirubin, UA Negative Negative 11/11/2024 10:[address] [facility] Blood, UA Small(A) Negative 11/11/2024 10:[address] [facility] Nitrite, UA Negative Negative 11/11/2024 10:[address] [facility] Urobilinogen, UA <2.0 0.2 - 1.9 mg/dL 11/11/2024 10:[address] [facility] Leukocyte Esterase, UA Negative Negative 11/11/2024 10:[address] [facility] RBC, UA 13(H) 0 - 3 /HPF 11/11/2024 10:[address] [facility] WBC, UA 4 0 - 5 /HPF 11/11/2024 10:[address] [facility] Urine 11/11/2024 9:13 AM EDT 11/11/2024 10:10 AM EDT us Caron Santos CLERK ANALYST URINE ORDERABLES Final Re sult Performing Organization Address City/[facility]/ZIP Co de Phone Number [facility] [address] [facility] [place] [address], [facility] * EKG - scan (11/03/2024 9:07 AM [...] of64 resultswithin the time period is included. [facility] POC Glucose Monitoring Device 180(H) 70 - 100 mg/dL 11/02/2024 5:[address] [facility] Blood 11/02/2024 5:44 PM EDT 11/02/2024 5:45 PM EDT us Harvey Domínguez III, MD POINT OF CARE TEST ORDERABLES Final Result [facility] [address] [place] [address], [facility] * X-ray Portable Abdomen AP [...] Adrenal gland: No focal nodule seen. Kidneys: [place] kidneys noted with nonobstructing calcifications on the right. Findings of postsurgical changes in the left [place] kidney. Mild right hydronephrosis without an obstructive [...] Adrenal gland: No focal nodule seen. Kidneys: [place] kidneys noted with nonobstructing calcifications on theright. Findings of postsurgical changes in the left [place] kidney. Mildright hydronephrosis without an obstructive course [...] QT: 400 ms QTc: 456 ms P [place]: 49 degrees R [place]: 3 degrees T [place]: 14 degrees Diagnosis Line: NORMAL SINUS RHYTHM ^ NORMAL ECG ^ ^ Confirmed by MD REID JAMES ([id number]) on 11/02/2024 6:56:52 AM Priti Alex CNP ECG ORDERABLES Final Result MUSE * US Duplex Qgm-Hjc-Pmusvwu Comp (10/31/2024 10:19 AM EDT) Only the [...] EXAM: US ABDOMEN LIMITED EXAM: US DUPLEX [id number] COMPLETE INDICATION: Post-op liver transplant COMPARISON: None [...] secondary to poor acoustic windows. The [place] right kidney measures 11.6 cm in length. [...] EXAM: US ABDOMEN LIMITED EXAM: US DUPLEX [id number] COMPLETE INDICATION: Post-op liver transplant COMPARISON: None [...] visualized secondary to poor acousticwindows. The [place] right kidney measures 11.6 cm in length. [...] at 10/31/2024 10:35 AM EDT Beata Horner [facility] US ORDERABLES Final R [...] EXAM: US ABDOMEN LIMITED EXAM: US DUPLEX [id number] COMPLETE INDICATION: Post-op liver transplant COMPARISON: None [...] secondary to poor acoustic windows. The [place] right kidney measures 11.6 cm in length. [...] EXAM: US ABDOMEN LIMITED EXAM: US DUPLEX [id number] COMPLETE INDICATION: Post-op liver transplant COMPARISON: None [...] visualized secondary to poor acousticwindows. The [place] right kidney measures 11.6 cm in length. [...] at 10/31/2024 10:35 AM EDT Beata Horner [facility] US ORDERABLES Final R [...] at 10/31/2024 10:29 AM EDT Beata Horner [facility] US ORDERABLES Final R esult * Prepare RBC, leukoreduced, 1 Units (10/29/2024 6:16 AM EDT) Only the most recent of7 resultswithin the time period is included. Product Code G4589V38 [facility] Unit Number [id number] [facility]LL Dispense Status Presumed Transfused_PT [facility]LL Blood Expiration Date [id number] HCLL Coding System [id number] [facility]LL Blood Bank Product Shay Guzmán MD BLOOD BANK PRODUCT O RDERABLES Final Result [facility] * (ABNORMAL) TEG-Bypass/ECMO/Liver HN (Factor function, Platelet/Fibrin Clot Strength w/Clot Breakdown, Heparinase In All Channels) (10/29/2024 5:07 AM EDT) Only the most recent of13 resultswithin the time period is included. [facility] Citrated Kaolin Reaction Time (TEGECMOLIVER) 8.9 4.6 - 9.1 minutes 10/29/2024 7:[address] [facility] Citrated Kaolin W/Heparinase Reaction Time (TEGECMOLIVER) 7.4 4.3 - 8.3 minutes 10/29/2024 7:[address] [facility] Citrated Kaolin Maximum Amplitude (TEGECMOLIVER) 52.9 52.0 - 69.0 mm 10/29/2024 7:[address] [facility] Citrated Functional Fibrinogen W/Heparinase Maximum Amplitude(TEGEC MOLIVER) 20.7 15.0 - 34.0 mm 10/29/2024 7:[address] [facility] Citrated Rapid Teg W/Heparinase Maximum Amplitude (TEGECMOLIVER) 49.7(L) 53.0 - 69.0 mm 10/29/2024 7:[address] [facility] Citrated Kaolin w/Heparinase Percent Lysis (TEGECMOLIVER) 0.0 0.0 - 3.2 % 10/29/2024 7:[address] [facility] Whole Blood (Citrate) 10/29/2024 5:07 AM EDT 10/29/2024 5:10 AM EDT Kemar Sahni MD LAB BLOOD ORDERABLES Final Result [facility] [address] [place] [address], [facility] * Transfuse RBC Transfusion Rate: Per [...] 2.2 mmol/L 10/28/2024 11:[address] [facility] Plasma 10/28/2024 11:0 9 AM EDT 10/28/2024 11:15 AM EDT Carlos Marks MD LAB BLOOD ORDERABLES Final Result Performing Organization Address [facility] Co de Phone Number [facility] [address] [facility]. [address] * Protime-INR, STAT (10/28/2024 11:09 AM EDT) Only the most recent of33 resultswithin the time period is included. Protime 14.3 12.1 - 15.1 seconds 10/28/2024 11:[address] [facility] INR 1.1 0.9 - 1.1 10/28/2024 11:[address] [facility] Comment: RECOMMENDED THERAPEUTIC RANGES USING INR : Stable oral anticoagulant therapy: 2.0 - 3.0 Mechanical prosthetic heart valve: 2.5 - 3.5 Recurrent acute myocardial infarction: 2.5 - 3.5 Plasma 10/28/2024 11:0 9 AM EDT 10/28/2024 11:16 AM EDT Carlos Marks MD LAB BLOOD ORDERABLES Final Result Performing Organization Address [facility] Co de Phone Number [facility] [address] * Prepare Platelets, leukoreduced (10/28/2024 6:15 AM EDT) Only the most recent of5 resultswithin the time period is included. Product Code O5160Q25 HCLL Unit Number [id number] HCLL Dispense Status Presumed Transfused_PT [facility]LL Blood Expiration Date HCLL Coding System [id number] HCLL Product Code T7940R31 HCLL Unit Number [id number] HCLL Dispense Status Presumed Transfused_PT [facility]LL Blood Expiration Date [id number] HCLL Coding System [id number] HCLL us Attending Provider Unknown BLOOD BANK PRODUCT OR DERABLES Final Result [facility] * Prepare Fresh Frozen Plasma (10/28/2024 6:15 AM EDT) Only the most recent of5 resultswithin the time period is included. Product Code F1629A11 HCLL Unit Number [id number] HCLL Dispense Status Released from Crossmatch_RE HCLL Blood Expiration Date HCLL Coding System [id number] HCLL Product Code F1484C72 HCLL Unit Number [id number] HCLL Dispense Status Presumed Transfused_PT HCLL Blood Expiration Date HCLL Coding System WSZC569 HCLL Product Code O7060R95 HCLL Unit Number [id number] HCLL Dispense Status Released from Crossmatch_RE HCLL Blood Expiration Date HCLL Coding System HBSI207 HCLL Product Code D1479N46 HCLL Unit Number [id number] HCLL Dispense Status Presumed Transfused_PT HCLL Blood Expiration Date HCLL Coding System EXRS087 HCLL Product Code I5979O19 HCLL Unit Number [id number] HCLL Dispense Status Released from Crossmatch_RE HCLL Blood Expiration Date HCLL Coding System [id number] HCLL us Attending Provider Unknown BLOOD BANK PRODUCT OR DERABLES Final Result [facility] * Prepare Cryoprecipitate, 1 Units (10/28/2024 6:15 AM EDT) Only the most recent of4 resultswithin the time period is included. Product Code U0075A36 HCLL Unit Number [id number] HCLL Dispense Status Presumed Transfused_PT [facility]LL Blood Expiration Date HCLL Coding System [id number] HCLL Product Code N4382N66 HCLL Unit Number [id number] HCLL Dispense Status Presumed Transfused_PT HCLL Blood Expiration Date HCLL Coding System [id number] HCLL Blood Bank Product John Pina MD BLOOD BANK PRODUCT ORDERABLES F inal Result [facility] * (ABNORMAL) Blood Gas, Arterial, STAT (10/27/2024 2:40 PM EDT) Only the most recent of6 resultswithin the time period is included. O2 Sat, Arterial 98 10/27/2024 2:[address] [facility] FIO2 RA 10/27/2024 2:[address] [facility] pH, Arterial 7.37 7.35 - 7.45 10/27/2024 2:[address] [facility] pCO2, Arterial 35 35 - 45 mm Hg 10/27/2024 2:[address] [facility] pO2, Arterial 92 80 - 100 mm Hg 10/27/2024 2:[address] [facility] HCO3, Arterial 21(L) 22 - 26 mmol/L 10/27/2024 2:[address] [facility] CO2 Content,Arteri al 21(L) 23 - 27 mmol/L 10/27/2024 2:[address] [facility] Base Excess, Arterial -4.6(L) -2.0 - 3.0 mmol/L 10/27/2024 2:[address] [facility] %HBO2, Arterial 95.4 95.0 - 98.0 % 10/27/2024 2:46 PM EDT [facility] Carboxyhemoglo bin, Arterial 1.6 % 10/27/2024 2:[address] [facility] Comment: CARBOXYHEMOGLOBIN (CO) REFERENCE RANGES: Non-Smokers: <2 % Smokers: <8 % TOXIC: >20 % Methemoglobin, Arterial 1.0 0.0 - 1.5 % 10/27/2024 2:[address] [facility] Reduced hemoglobin, Arterial 2.1 0.0 - 5.0 % 10/27/2024 2:[address] [facility] Blood, Arterial 10/27/2024 2 :40 PM EDT 10/27/2024 2:[address] [facility] - 10/27/2024 2:46 PM EDT Post extubation John Coulter MD LAB BLOOD ORDERABLES Final R esult [facility] [address] * CARISA Rhythm Strip - Scan [...] 10/27/2024 9:22 AM EDT John Coulter MD [facility] DIAGNOSTIC IMAGING ORDER PAL Final Result * (ABNORMAL) Katie-Watkins virus VCA IgG Antibody (10/27/2024 8:00 AM EDT) EBV VCA IgG Positive( A) Negative 10/27/2024 11:30 AM EDT [facility] Comment:Presence of detectab le VCA IgG antibodies. 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 EBV IGG NUM 314.00(H) 0.00 - 17.99 U/mL 10/27/2024 11:30 AM EDT [facility] Serum 10/27/2024 8:00 AM EDT 10/27/2024 8:20 AM EDT Kemar Sahni MD LAB BLOOD ORDERABLES Final Result Performing Organization Address [facility] Co de Phone Number [facility] [address] * Hemoglobin A1c (10/27/2024 8:00 AM EDT) Only the most recent of2 resultswithin the time period is included. Hemoglobin A1C 5.0 4.0 - 5.6 % 10/27/2024 11:12 AM EDT [facility] Comment: Hemoglobin A1c Interpretation Guidelines: Normal: [...] Final Result Performing Organization Address City/[facility] Co de Phone Number [facility] [address] [facility]. [address] * X-ray Abdomen AP view (10/27/2024 [...] of6 resultswithin the time period is included. us Ben Blake MD NURSING TREATMENT ORDERABLES - BLOOD ADMIN Final Result * (ABNORMAL) Arterial Blood Gas Panel (10/27/2024 6:09 AM EDT) Only the most recent of2 resultswithin the time period is included. O2Sat (ABGP) 100 10/27/2024 6:[address] [facility] pH (ABGP) 7.30(L) 7.35 - 7.45 10/27/2024 6:[address] [facility] PCO2 (ABGP) 41 35 - 45 mm Hg 10/27/2024 6:[address] [facility] PO2 (ABGP) 192(H) 80 - 100 mm Hg 10/27/2024 6:[address] [facility] HCO3 (ABGP) 21(L) 22 - 26 mmol/L 10/27/2024 6:17 AM [facility] CO2 Content (ABGP) 22(L) 23 - 27 mmol/L 10/27/2024 6:17 AM [facility] Base Excess (ABGP) -5.7(L) -2.0 - 3.0 mmol/L 10/27/2024 6:17 AM [facility] Sodium (ABGP) 138 136 - 146 mEq/L 10/27/2024 6:17 AM [facility] Potassium (ABGP) 3.3(L) 3.5 - 5.0 mEq/L 10/27/2024 6:17 AM [facility] Comment:In the event of in-v itro hemolysis, potassium results may be falsely elevated. Always interpret lab results in conjunction with clinical findings. If hemolysis is suspected, a serum sample may be collected for repeat assessment of potassium. Calcium, Free (ABGP) 5.28 4.50 - 5.30 mg/dL 10/27/2024 6:17 AM [facility] Glucose (ABGP) 112(H) 70 - 100 mg/dL 10/27/2024 6:17 AM [facility] Comment:There is interferenc e with whole blood glucose results on this method when Hematocrit is <25% or >60%. HCT (ABGP) 20.0(L) 40.0 - 52.0 % 10/27/2024 6:[address] [facility] HGB (ABGP) 6.5(L) 14.0 - 18.0 g/dL 10/27/2024 6:[address] [facility] %HBO2 (ABGP) 96.8 95.0 - 98.0 % 10/27/2024 6:[address] [facility] Carboxyhgb (ABGP) 2.1 % 025 6:[address] [facility] Comment: CARBOXYHEMOGLOBIN (CO) REFERENCE RANGES: Non-Smokers: <2 % Smokers: <8 % TOXIC: >20 % Methemoglobin (ABGP) 1.0 0.0 - 1.5 % 10/27/2024 6:[address] [facility] Reduced Hemoglobin (ABGP) 0.2 0.0 - 5.0 % 10/27/2024 6:[address] [facility] Lactic Acid (ABGP) 0.4(L) 0.5 - 1.6 mmol/L 10/27/2024 6:[address] [facility] Blood, Arterial 10/27/2024 6 :09 AM EDT 10/27/2024 6:14 AM EDT Ben Blake MD LAB BLOOD ORDERABLES Final Re sult Performing Organization Address City/State/[facility] Co de Phone Number [facility] [address] * Transfuse Fresh Frozen Plasma (10/27/2024 [...] BLOOD ORDERABLES Final Resul t [facility] [address] [place] [address] * Surgical Pathology Exam (10/27/2024 2:38 AM EDT) Only the most recent of2 resultswithin the time period is included. Tissue LEFT KIDNEY STRUCTURE / Unknown 10/27/2024 2:38 AM EDT Narrative [facility] - 10/27/2024 12:00 AM EDT CASE: [id number] PATIENT: BLAIR ANDERSON Clinical History: Transplant kidney with bile duct reconstruction Pre-Operative Diagnosis: Acute kidney injury superimposed on CKD Post-Operative Diagnosis: None Given Specimen(s) Submitted: A. baseline renal biopsy ; B. right lobe liver biopsy; C. left lobe liver biopsy CPT Code(s): 72496 X 1; 20596 X 2; 35660 X 4 Additional Information: FINAL DIAGNOSIS: A. [...] submitted between blue biopsy sponges in cassette [facility]-[id number] B1-B2. (NAA Mckeon/ns) C. Received in formalin, labeled with the patient's name Blair Anderson and left lobe liver biopsy are two green-georges tissue cores measuring 1.2 and 1.4 cm in length, each with a diameter of 0.1 cm, which are entirely submitted between blue biopsy sponges in cassette [facility]-[id number] C1-C2. (NAA Mckeon/ns) Microscopic Description: I, the attending pathologist, have personally reviewed all prosector/resident work and pathology slides to determine final diagnosis. Control Materials Reacted Appropriately. Final Diagnosis performed by CLARE FALL MD Pathologist Electronically signed 10/31/2024 01:07:09 PM The Pathologist signing this report is located at [facility], [address] [place] [address], [id number], , CLIA ID: [id number] ADDENDUM: A. Kidney, allograft, baseline, wedge biopsy: [...] at [facility], [address] [place] [address], [id number], , CLIA ID: [id number] us Kemar Sahni MD PATHOLOGY/CYTOLOGY ORDERABL ES Edited Result - Final [facility] * Routine Culture plus Stain (10/27/2024 2:15 AM EDT) Only the most recent of2 resultswithin the time period is included. Gram Stain Result No Polymorphonuclear Leukocytes Seen [facility] Gram Stain Result No Organisms Seen; [facility] Culture Result No Growth After [address] [facility] Fluid SPECIMEN FROM KIDNEY / Unknown 10/27/2024 2:15 AM EDT 10/27/2024 4:24 AM EDT Narrative [facility] - 10/30/2024 9:26 AM EDT 1) perfusate us Harvey Domínguez III, MD MICROBIOLOGY - GENE RAL ORDERABLES Final Result Performing Organization Address City/[facility] Co de Phone Number [facility] [address] [facility]. [address] * Fungus culture (10/27/2024 2:15 AM EDT) Culture Result No Fungus Isolated At [address] [facility] Fluid SPECIMEN FROM KIDNEY / Unknown 10/27/2024 2:15 AM EDT 10/27/2024 4:[address] [facility] - 11/24/2024 7:52 AM EDT 1) perfusate us Harvey Domínguez III, MD MICROBIOLOGY - GENE RAL ORDERABLES Final Result Performing Organization Address [facility] Co de Phone Number [facility] [address] * Anaerobic culture (10/27/2024 2:15 AM EDT) Only the most recent of2 resultswithin the time period is included. Culture Result No Anaerobes Isolated in [address] [facility] Fluid SPECIMEN FROM KIDNEY / Unknown 10/27/2024 2:15 AM EDT 10/27/2024 4:24 AM EDT Narrative [facility]ALTH [facility] - 10/31/2024 11:43 AM EDT 1) perfusate us Harvey Domínguez III, MD MICROBIOLOGY - GENE RAL ORDERABLES Final Result Performing Organization Address City/[facility]/ZIP Co de Phone Number [facility] [address] [place] [place] [address], [facility] * (ABNORMAL) TEG-Standard Global Hemostasis (Rapid TEG with Heparin Effect, Contains a Baseline TEG) (10/27/2024 1:51 AM EDT) Only the most recent of2 resultswithin the time period is included. [facility] Citrated Kaolin Reaction Time (TEGHEPARINASE) 10.6(H) 4.6 - 9.1 minutes 10/27/2024 2:[address] [facility] Citrated Rapid Teg Maximum Amplitude (TEGHEPARINASE) 42.3(L) 52.0 - 70.0 mm 10/27/2024 2:[address] [facility] Citrated Functional Fibrinogen Maximum Amplitude (TEGHEPARINASE) 15.0 15.0 - 32.0 mm 10/27/2024 2:[address] [facility] Citrated Kaolin W/Heparinase Reaction Time (TEGHEPARINASE) 10.5(H) 4.3 - 8.3 minutes 10/27/2024 2:[address] [facility] Citrated Kaolin K-Time (TEGHEPARINASE) 2.9(A) 0.8 - 2.1 minutes 10/27/2024 2:[address] [facility] Citrated Kaolin Angle (TEGHEPARINASE) 60.4(A) 63.0 - 78.0 degrees 10/27/2024 2:[address] [facility] Citrated Kaolin Maximum Amplitude (TEGHEPARINASE) 42.9(L) 52.0 - 69.0 mm 10/27/2024 2:[address] [facility] Citrated Functional Fibrinogen- Fibrinogen Level (TEGHEPARINASE) 273.7(L) 278.0 - 581.0 mg/dL 10/27/2024 2:[address] [facility] Whole Blood (Citrate) 10/27/2024 1:51 AM EDT 10/27/2024 2:03 AM EDT us John Pina MD LAB BLOOD ORDERABLES Final Resu lt [facility] [address] [id number], [facility] * Calcium Free, Serum (10/27/2024 12:13 AM EDT) Only the most recent of3 resultswithin the time period is included. Pathologist [facility] Free Calcium, Ser 5.20 4.40 - 5.40 mg/dL 10/27/2024 12:[address] [facility] Comment:Free calcium levels vary inversely with pH by approximately 5% for each 0.1 unit of pH change. Assay results have been normalized to pH = 7.40. Serum 10/27/2024 12:1 3 AM EDT 10/27/2024 12:[address] [facility] - 10/27/2024 12:37 AM EDT [...] LAB BLOOD ORDERABLES Final Resu lt [facility] [address] [place] [id number], [facility] * Repeat Crossmatch (Recipient Sample) (10/26/2024 4:42 PM EDT) [facility] Repeat Cx - Recipient The request and specimen(s) for this test have been received and transported to the [facility] at [address] [place] [address]. The [facility] will report results directly to the client. 10/26/2024 4:[address] [facility] Whole Blood 10/26/2024 4:42 PM EDT 10/26/2024 4:[address] [facility] - 10/26/2024 4:49 PM EDT To be sent to [facility] for Donor UNOS#[id number] cross match with Blair Justin Sveta Mojica MD LAB BLOOD ORDERABLES Final Resu lt [facility] [address] * (ABNORMAL) Fibrinogen (10/26/2024 6:10 AM EDT) Only the most recent of2 resultswithin the time period is included. Fibrinogen 160(L) 218 - 406 mg/dL 10/26/2024 6:[address] [facility] Plasma 10/26/2024 6:10 AM EDT 10/26/2024 6:26 AM EDT Sveta Mojica MD LAB BLOOD ORDERABLES Final Resu lt Performing Organization Address [facility] Co de Phone Number [facility] [address] * (ABNORMAL) POC INR (10/26/2024 5:16 AM EDT) Only the most recent of6 resultswithin the time period is included. Prothrombin Time INR, POC 2.4(H) 0.8 - 1.4 10/27/2024 6:[address] [facility] Comment: Test results may vary [...] City/[facility]/ZIP Co de Phone Number [facility] [address] * POC Lactate (10/26/2024 5:14 AM EDT) Only the most recent of6 resultswithin the time period is included. POC Lactate 1.76 0.50 - 2.20 mmol/L 10/26/2024 5:[address] [facility] Blood, Arterial 10/26/2024 5 :14 AM EDT 10/26/2024 5:31 AM EDT us Harvey Domínguez III, MD POINT OF CARE TEST ORDERABLES Final Result [facility] [address] [facility]. [address] * POC TCO2 (10/26/2024 5:14 AM EDT) Only the most recent of6 resultswithin the time period is included. POC TCO2, Arterial 23 23 - 27 mmol/L 10/26/2024 5:[address] [facility] Blood, Arterial 10/26/2024 5 :14 AM EDT 10/26/2024 5:31 AM EDT us Harvey Domínguez III, MD POINT OF CARE TEST ORDERABLES Final Result Performing Organization Address [facility] Co de Phone Number [facility] [address] [facility]. [address] * POC Sodium (10/26/2024 5:14 AM EDT) Only the most recent of6 resultswithin the time period is included. POC Sodium 138 136 - 146 mmol/L 10/26/2024 5:[address] [facility] Blood, Arterial 10/26/2024 5 :14 AM EDT 10/26/2024 5:31 AM EDT us Harvey Domínguez III, MD POINT OF CARE TEST ORDERABLES Final Result Performing Organization Address City/[facility]/ZIP Co de Phone Number [facility] [address] [facility]. [address] * (ABNORMAL) POC Potassium (10/26/2024 5:14 AM EDT) Only the most recent of6 resultswithin the time period is included. POC Potassium 2.8(LL) 3.5 - 5.3 mmol/L 10/26/2024 5:[address] [facility] Blood, Arterial 10/26/2024 5 :14 AM EDT 10/26/2024 5:31 AM EDT us Harvey Domínguez III, MD POINT OF CARE TEST ORDERABLES Final Result [facility] [address] [place] [address]. [address] * (ABNORMAL) POC PO2 (10/26/2024 5:14 AM EDT) Only the most recent of6 resultswithin the time period is included. POC pO2, Arterial 133(H) 80 - 100 mm Hg 10/26/2024 5:[address] [facility] Blood, Arterial 10/26/2024 5 :14 AM EDT 10/26/2024 5:31 AM EDT us Harvey Domínguez III, MD POINT OF CARE TEST ORDERABLES Final Result [facility] [address] [place] [address]. [address] * POC PCO2 (10/26/2024 5:14 AM EDT) Only the most recent of6 resultswithin the time period is included. POC pCO2, Arterial 45 35 - 45 mm Hg 10/26/2024 5:[address] [facility] Blood, Arterial 10/26/2024 5 :14 AM EDT 10/26/2024 5:31 AM EDT us Harvey Domínguez III, MD POINT OF CARE TEST ORDERABLES Final Result Performing Organization Address [facility] Co de Phone Number [facility] [address] [facility]. [address] * (ABNORMAL) POC O2 SAT (10/26/2024 5:14 AM EDT) Only the most recent of6 resultswithin the time period is included. POC O2 Saturation, Arterial 99(H) 95 - 98 % 10/26/2024 5:[address] [facility] Blood, Arterial 10/26/2024 5 :14 AM EDT 10/26/2024 5:31 AM EDT us Harvey oDmínguez III, MD POINT OF CARE TEST ORDERABLES Final Result Performing Organization Address [facility] Co de Phone Number [facility] [address] [facility]. [address] * POC HCO3 (10/26/2024 5:14 AM EDT) Only the most recent of6 resultswithin the time period is included. POC HCO3, Arterial 22 22 - 26 mmol/L 10/26/2024 5:[address] [facility] Blood, Arterial 10/26/2024 5 :14 AM EDT 10/26/2024 5:31 AM EDT us Harvey Domínguez III, MD POINT OF CARE TEST ORDERABLES Final Result Performing Organization Address City/[facility] Co de Phone Number [facility] [address] [facility]. [address] * POC Chloride (10/26/2024 5:14 AM EDT) Only the most recent of6 resultswithin the time period is included. POC Chloride 104 98 - 110 mmol/L 10/26/2024 5:[address] [facility] Blood, Arterial 10/26/2024 5 :14 AM EDT 10/26/2024 5:31 AM EDT Harvey Doímnguez III, MD POINT OF CARE TEST ORDERABLES Final Result Performing Organization Address City/[facility] Co de Phone Number [facility] [address] * (ABNORMAL) POC Base Excess (10/26/2024 5:14 AM EDT) Only the most recent of6 resultswithin the time period is included. POC Base Excess, Arterial -5(L) -2 - 3 mmol/L 10/26/2024 5:[address] [facility] Blood, Arterial 10/26/2024 5 :14 AM EDT 10/26/2024 5:31 AM EDT Harvey Domínguez III, MD POINT OF CARE TEST ORDERABLES Final Result Performing Organization Address [facility] Co de Phone Number [facility] [address] [facility]. [address] * POC Anion Gap (10/26/2024 5:14 AM EDT) Only the most recent of6 resultswithin the time period is included. POC Anion Gap, Arterial 12 3 - 16 mmol/L 10/26/2024 5:[address] [facility] Blood, Arterial 10/26/2024 5 :14 AM EDT 10/26/2024 5:31 AM EDT Harvey Domínguez III, MD POINT OF CARE TEST ORDERABLES Final Result Performing Organization Address City/[facility] Co de Phone Number [facility] [address] [facility]. [address] * POC Sample Type (10/26/2024 5:14 AM EDT) Only the most recent of6 resultswithin the time period is included. POC Sample Type Arterial 10/26/2024 5:[address] [facility] Blood, Arterial 10/26/2024 5 :14 AM EDT 10/26/2024 5:31 AM EDT us Harvey Domínguez III, MD POINT OF CARE TEST ORDERABLES Final Result Performing Organization Address [facility] Co de Phone Number [facility] [address] [facility]. [address] * (ABNORMAL) POC pH (10/26/2024 5:14 AM EDT) Only the most recent of6 resultswithin the time period is included. POC pH, Arterial 7.29(L) 7.35 - 7.45 10/26/2024 5:[address] [facility] Blood, Arterial 10/26/2024 5 :14 AM EDT 10/26/2024 5:31 AM EDT us Harvey Domínguez III, MD POINT OF CARE TEST ORDERABLES Final Result Performing Organization Address [facility] Co de Phone Number [facility] [address] [facility]. [address] * (ABNORMAL) POC hematocrit (10/26/2024 5:14 AM EDT) Only the most recent of6 resultswithin the time period is included. POC Hematocrit 28.0(L) 40 - 52 % 10/26/2024 5:[address] [facility] Blood, Arterial 10/26/2024 5 :14 AM EDT 10/26/2024 5:31 AM EDT Harvey Domínguez III, MD POINT OF CARE TEST ORDERABLES Final Result Performing Organization Address [facility] de Phone Number [facility] [address] [facility]. [address] * (ABNORMAL) POC Ionized Calcium (10/26/2024 5:14 AM EDT) Only the most recent of6 resultswithin the time period is included. POC Ionized Calcium 5.50(H) 4.50 - 5.30 mg/dL 10/26/2024 5:[address] [facility] Blood, Arterial 10/26/2024 5 :14 AM EDT 10/26/2024 5:31 AM EDT us Harvey Domínguez III, MD POINT OF CARE TEST ORDERABLES Final Result Performing Organization Address City/[facility] Co de Phone Number [facility] [address] [facility]. [address] * (ABNORMAL) POC Glucose (10/26/2024 5:14 AM EDT) Only the most recent of6 resultswithin the time period is included. POC Glucose, Arterial 183(H) 70 - 100 mg/dL 10/26/2024 5:[address] [facility] Blood, Arterial 10/26/2024 5 :14 AM EDT 10/26/2024 5:31 AM EDT Harvey Domínguez III, MD POINT OF CARE TEST ORDERABLES Final Result Performing Organization Address [facility] de Phone Number [facility] [address] [facility]. [address] * (ABNORMAL) POC Hemoglobin (10/26/2024 5:14 AM EDT) Only the most recent of6 resultswithin the time period is included. POC Hemoglobin 9.5(L) 14.0 - 18.0 g/dL 10/26/2024 5:[address] [facility] Blood, Arterial 10/26/2024 5 :14 AM EDT 10/26/2024 5:31 AM EDT us Harvey Domínguez III, MD POINT OF CARE TEST ORDERABLES Final Result Performing Organization Address [facility] Co de Phone Number [facility] [address] * (ABNORMAL) TEG-Global With Lysis (Baseline TEG with LY30, Will NOT Show Heparin Effect) (53:31 AM EDT) Citrated Kaolin Reaction Time (TEGLYSIS) 6.8 4.6 - 9.1 minutes 10/26/2024 5:[address] [facility] Citrated Rapid Teg Maximum Amplitude (TEGLYSIS) <40.0(L) 52.0 - 70.0 mm 10/26/2024 5:[address] [facility] Citrated Functional Fibrinogen Maximum Amplitude (TEGLYSIS) <4.0(L) 15.0 - 32.0 mm 10/26/2024 5:[address] [facility] Citrated Kaolin Percent Lysis (TEGLYSIS) 1.4 0.0 - 2.6 % 10/26/2024 5:[address] [facility] Whole Blood (Citrate) 10/26/2024 3:31 AM EDT 10/26/2024 3:40 AM EDT us Eber Quinones MD LAB BLOOD ORDERABLES Fin al Result [facility] [address] [place] [address], [facility] * CENTRAL LINE SINGLE LUMEN PERFORMABLE (10/25/2024 11:13 PM EDT) Narrative Ben Blake MD - 10/25/2024 11:13 PM EDT Ben Blake MD 10/26/2024 7:45 PM [place] Emily Cath Date/Time: 10/25/2024 11:13 PM Performed [...] PM EDT) Culture Result <1,000 cfu/mL [facility] Culture Result Skin/Urogeni rony Mckayla. No Further Workup. [facility] Newly Placed Berkowitz Urine URINE SPECIMEN / Unknown 10/25/2024 11:08 PM EDT Comment:urine culture Narrative [facility] - 10/28/2024 9:59 AM EDT urine culture urine culture Harvey Domínguez III, MD MICROBIOLOGY - GENE RAL ORDERABLES Final Result [facility] [address] [place] [address], [facility] * Insert Arterial Line (10/25/2024 10:45 [...] IgM) Nonreactive 10/25/2024 11:[address] [facility] Serum 10/25/2024 10:1 7 PM EDT 10/25/2024 10:17 PM EDT Narrative [facility] - 10/25/2024 11:13 PM EDT HAV antibodies not detected Aysha Gill MD LAB BLOOD ORDERABLES F inal Result Performing Organization Address [facility] Co de Phone Number [facility] [address] [facility]. [address] * Iron Studies (Iron + TIBC) (10/25/2024 10:17 PM EDT) Only the most recent of2 resultswithin the time period is included. Iron 128 50 - 212 ug/dL 10/25/2024 10:[address] [facility] % Iron Saturation SEE COMMENT 15.0 - 55.0 % 10/25/2024 10:[address] [facility] Comment:Unable to calculate result because contributing result outside reportable range.. TIBC SEE COMMENT 261 - 462 ug/dL 10/25/2024 10:[address] [facility] Comment:Unable to calculate result because contributing result outside reportable range.. Serum 10/25/2024 10:1 7 PM EDT 10/25/2024 10:17 PM EDT Aysha Gill MD LAB BLOOD ORDERABLES F inal Result Performing Organization Address [facility] Co de Phone Number [facility] [address] [facility]. [address] * Hepatitis B Core Antibody (10/25/2024 10:17 PM EDT) Hep B Core Total Ab Nonreactive Nonreactive 10/25/2024 11:[address] [facility] Comment:Health Department no tified in [...] LAB BLOOD ORDERABLES F inal Result [facility] [address] [facility]. [address] * Hepatitis C Antibody (10/25/2024 10:17 PM EDT) Only the most recent of4 resultswithin the time period is included. HCV Ab Nonreactive Nonreactive 10/25/2024 11:[address] [facility] Comment:Health Department no tified in accordance with reportable infectious disease guidelines. Serum 10/25/2024 10:1 7 PM EDT 10/25/2024 10:[address] [facility] - 10/25/2024 11:16 PM EDT Antibodies to HCV not detected; does not exclude the possibility of exposure to HCV. Aysha Gill MD LAB BLOOD ORDERABLES F inal Result Performing Organization Address City/[facility]/ZIP Co de Phone Number [facility] [address] [facility]. [address] * HIV 1+2 Antibody/Antigen with Reflex (10/25/2024 10:17 PM EDT) Only the most recent of2 resultswithin the time period is included. HIV 1+2 AB/AGN Nonreactive Nonreactive 10/25/2024 11:[address] [facility] Serum 10/25/2024 10:1 7 PM EDT 10/25/2024 10:16 PM EDT Narrative [facility] - 10/25/2024 11:03 PM EDT \HIVRNR Aysha Gill MD LAB BLOOD ORDERABLES F inal Result [facility] [address] [facility]. [address] * (ABNORMAL) Hepatitis B Surface Antibody, Quantitati (10/25/2024 10:17 PM EDT) Only the most recent of3 resultswithin the time period is included. HBSAB NUMBER 10.70(H) 0.00 - 9.99 mIU/mL 10/25/2024 11:[address] [facility] Hep B S Ab Equivocal (A) Nonreactive 10/25/2024 11:[address] [facility] Serum 10/25/2024 10:1 7 PM EDT 10/25/2024 10:17 PM EDT Aysha Gill MD LAB BLOOD ORDERABLES F inal Result Performing Organization Address [facility] Co de Phone Number [facility] [address] [place] [address]. [address] * Hepatitis B surface antigen (10/25/2024 10:17 PM EDT) Only the most recent of4 resultswithin the time period is included. Pathologist [facility] Hep B Surface Ag Nonreactive Nonreactive 10/25/2024 11:[address] [facility] Comment:Health Department no tified in accordance with reportable infectious disease guidelines. Serum 10/25/2024 10:1 7 PM EDT 10/25/2024 10:[address] [facility] - 10/25/2024 11:12 PM EDT Specimen is considered negative for HBsAg. Aysha Gill MD LAB BLOOD ORDERABLES F inal Result [facility] [address] [facility]. [address] * (ABNORMAL) APTT, NO ANTICOAGULANT (10/25/2024 10:17 PM EDT) Pathologist [facility] aPTT 41.7(H) 25.5 - 35.0 seconds 10/25/2024 10:36 PM EDT [facility] Plasma 10/25/2024 10:1 7 PM EDT 10/25/2024 10:17 PM EDT us Aysah Gill MD LAB BLOOD ORDERABLES F inal Result Performing Organization Address City/[facility]/ZIP Co de Phone Number [facility] [address] [facility]. [address] * PTH (10/25/2024 10:17 PM EDT) PTH 36.0 12.0 - 88.0 pg/mL 10/25/2024 11:[address] [facility] Serum 10/25/2024 10:1 7 PM EDT 10/25/2024 10:17 PM EDT us Aysha Gill MD LAB BLOOD ORDERABLES F inal Result Performing Organization Address [facility] Co de Phone Number [facility] [address] [facility]. [address] * (ABNORMAL) Ferritin (10/25/2024 10:17 PM EDT) Only the most recent of2 resultswithin the time period is included. Ferritin 623.2(H) 23.9 - 336.2 ng/mL 10/25/2024 11:[address] [facility] Serum 10/25/2024 10:1 7 PM EDT 10/25/2024 10:17 PM EDT us Aysha Gill MD LAB BLOOD ORDERABLES F inal Result Performing Organization Address City/[facility]/ZIP Co de Phone Number [facility] [address] [facility]. [address] * (ABNORMAL) Venous Blood Gas, Line/Syringe (10/25/2024 10:00 PM EDT) Only the most recent of5 resultswithin the time period is included. PH-Line Draw 7.38 7.32 - 7.42 10/25/2024 10:[address] [facility] PCO2-Line Draw 33(L) 41 - 51 mm Hg 10/25/2024 10:[address] [facility] PO2-Line Draw 33 25 - 40 mm Hg 10/25/2024 10:[address] [facility] HCO3-Line Draw 20(L) 24 - 28 mmol/L 10/25/2024 10:[address] [facility] CO2 Content-Line Draw 21(L) 25 - 29 mmol/L 10/25/2024 10:[address] [facility] Base Excess-Line Draw -5.0(L) -2.0 - 3.0 mmol/L 10/25/2024 10:[address] [facility] %HBO2-Line Draw 53.8 40.0 - 70.0 % 10/25/2024 10:[address] [facility] Carboxyhgb-Ludivina e Draw 1.9 % 10/25/2024 10:[address] [facility] Comment: CARBOXYHEMOGLOBIN (CO) REFERENCE RANGES: Non-Smokers: <2 % Smokers: <8 % TOXIC: >20 % Methemoglobin- Line Draw 0.2 0.0 - 1.5 % 10/25/2024 10:[address] [facility] Reduced Hemoglobin-Ludivina e Draw 44.1(H) 0.0 - 5.0 % 10/25/2024 10:[address] [facility] Venous, Line Draw 10/25/2024 10:00 PM EDT 10/25/2024 10:04 PM EDT us Aysha Gill MD LAB BLOOD ORDERABLES F inal Result Performing Organization Address City/State/[facility] Co de Phone Number [facility] [address] [place], [place] [address] * Donor Specific Antibody (DSA) (10/25/2024 10:00 PM EDT) AntiDonor Antibodies The request and specimen(s) for this test have been received and transported to the [facility] at [address] [place] [address]. The [facility] will report results directly to the client. 10/25/2024 10:[address] [facility] Comment:Testing performed by [facility], [facility], [address] [place] [address]. The [facility] report has been forwarded to the appropriate ordering location. Please refer to this report for patient results. Serum 10/25/2024 10:0 0 PM EDT 10/25/2024 10:20 PM EDT Aysha Gill MD LAB BLOOD ORDERABLES F inal Result Performing Organization Address [facility] Co de Phone Number [facility] [address] [facility]. [address] * Hepatitis C RNA, Quant Reflex to Genotyp (10/25/2024 8:18 PM EDT) [facility] International Units Not Detected IU/mL 10/27/2024 11:[address] [facility] Comment:Test methodology for HCV RNA quantification is an FDA-approved nucleic acid amplification assay. The Lower Limit of Quantitation (LLOQ) is 15 IU/mL. The linear range of the assay is 15-100,000,000 IU/mL. The Limit of Detection (LoD) is 12.0 IU/mL for EDTA plasma. The reference range is Not Detected. IU log10 See Note log 10 IU/mL 10/27/2024 11:[address] [facility] Comment:HCV RNA not detected . Plasma 10/25/2024 8:18 PM EDT 10/25/2024 10:27 PM EDT Aysha Gill MD LAB BLOOD ORDERABLES F inal Result Performing Organization Address [facility] Co de Phone Number [facility] [address] [facility]. [address] * Toxoplasma gondii antibody, IgG (10/25/2024 8:18 PM EDT) Only the most recent of2 resultswithin the time period is included. [facility] Toxoplasma Gondii IgG <3.0 0.0 - 7.1 IU/mL 10/27/2024 7:[address] [facility] Comment: Negative <7.2 Equivocal 7.2 - 8.7 Positive >8.7 Serum 10/25/2024 8:18 PM EDT 10/27/2024 8:[address] [facility] - 10/27/2024 8:06 AM EDT PERFORMED AT: [facility] [address] [id number] BANKING PIN ADJUSTER: Bassam Khalil, PhD PHONE: [phone] Aysha Gill MD LAB BLOOD ORDERABLES F inal Result [address] * ABO/Rh (10/25/2024 7:46 PM EDT) Only the most recent of5 resultswithin the time period is included. ABO Grouping O 10/25/2024 10:[address] [facility] Rh Type Positive 10/25/2024 10:[address] [facility] Blood 10/25/2024 7:46 PM EDT 10/25/2024 9:54 PM EDT Ben Blake MD BLOOD BANK TEST ORDERABLES Fi nal Result Performing Organization Address [facility] Co de Phone Number [address] * Antibody Screen (10/25/2024 7:46 PM EDT) Only the most recent of3 resultswithin the time period is included. Antibody Screen Negative 10/25/2024 10:[address] [facility] Blood 10/25/2024 7:46 PM EDT 10/25/2024 9:[address] [facility] - 10/25/2024 10:44 PM EDT Testing performed by [facility] Transfusion Service Ben Blake MD BLOOD BANK TEST ORDERABLES Fi nal Result [facility] [address] [facility] [place] [address], [facility] * [facility] - HLA Antibody-Detailed Report (10/22/2024 12:32 PM EDT) 10/22/2024 12:3 2 PM EDT Abdulkadir Gaspar MD LAB BLOOD ORDERABLES Final Resul t Performing Organization Address [facility] Co de Phone Number [facility] [place] [address] * HOX - HLA CROSSMATCH + Detailed Antibody (10/20/2024 5:04 PM EDT) 10/20/2024 5:04 PM EDT Abdulkadir Gaspar MD LAB BLOOD ORDERABLES Final Resul t Performing Organization Address [facility] Co de Phone Number [facility] [employer] [place] [address] * [facility] - ABO Typing Report (10/20/2024 5:03 PM EDT) 10/20/2024 5:03 PM EDT Abdulkadir Gaspar MD LAB BLOOD ORDERABLES Final Resul t Performing Organization Address [facility] Co de Phone Number [facility] [employer] [facility] [address] * X-ray Comparison Images (10/20/2024 9:10 AM EDT) Only the most recent of7 resultswithin the time period is included. Narrative EXTERNAL - 10/20/2024 9:10 AM EDT Images associated with this accession number were presented to us for comparison to an examination performed here. us Provider Not In System IMG DIAGNOSTIC IMAGING OR DERABLES Final Result Performing Organization Address [facility] Co de Phone Number EXTERNAL * PRA-HLA Ab Screen (Cytotoxic) (10/15/2024 6:08 AM EDT) [facility] The request and specimen(s) for this test have been received [facility] [address] [place] [address]. The [facility] will report results directly to the client. 10/15/2024 6:42 AM EDT [facility] Comment:The request and spec imen(s) for this test have been received and transported to the [facility] at [address] [place] [address]. [facility] will report results directly to the client. Serum 10/15/2024 6:08 AM EDT 10/15/2024 6:42 AM EDT us Cosmo Pacheco MD LAB BLOOD ORDERABLES Final Resul t [facility] [address] [place] [address] * LEFT HEART CATH (10/14/2024 2:09 PM EDT) 10/14/2024 11:4 7 AM EDT Narrative [facility] - 10/14/2024 9:27 PM EDT *[facility]* Cardiac Mobility Engineer [address] [place] [address] CATHETERIZATION LAB STUDY Patient: Blair Anderson Age: [...] manner. 3. Right radial artery access. A [id number] Glidesheath - Slender - .021 sheath was [...] + !LV pressure s/d, ed !112/, 22, dP/nd=0695ud Hg/s! + + + !Aortic pressure s/d (m)!106/58 (75) ! + + + ATTESTATION: Dr. Matta was present for the entire procedure. Dr. Jay Quan was the initial author of this report. Prepared and electronically signed by Irving Matta MD [id number] Procedure Note Irving Matta MD - 10/14/2024 *[facility]* Cardiac Mobility Engineer [address] [place] [id number] CATHETERIZATION LAB STUDY Patient: Blair Anderson Age: [...] manner. 3. Right radial artery access. A [id number] Glidesheath - Slender - .021sheath was advanced [...] complications. Contrast: Omnipaque 350 25ml (total dose). [id number] 125ml (wasted). Radiation: Fluoroscopy time: 15min. Total [...] + + !LV pressure s/d, ed !, dP/xk=1899hp Hg/s! + + + !Aortic pressure s/d (m)!106/58 (75) ! + + + ATTESTATION: Dr. Matta was present for the entire procedure. Dr. Jay Quan wasthe initial author of this report. Prepared and electronically signed by Irving Matta MD [id number] [place] [id number] Final Result [facility] * Cardiac Cath Documents [...] - 90 ug/dL 10/13/2024 7:[address] [facility] Comment: HEMOLYSIS EVIDENT. RESULTS MAY BE INFLUENCED. Critical Result [id number] Called to and read back by: KEY MELO RN at: 10/13/2024 07:15:55 by:NISREEN Plasma 10/13/2024 5:35 AM EDT 10/13/2024 6:19 AM EDT Ellis Mays DO LAB BLOOD ORDERABLES Final Resul t Performing Organization Address [facility] de Phone Number [facility] [address] [place] [address] * Vancomycin, random (10/11/2024 3:02 AM EDT) Only the most recent of5 resultswithin the time period is included. Vancomycin Random 13.4 ug/mL 10/11/2024 3:[address] [facility] Comment:Reference range not established for this test. Plasma 10/11/2024 3:02 AM EDT 10/11/2024 3:08 AM EDT us Jodi FreireD LAB BLOOD ORDERABLES Final Result Performing Organization Address City/[facility] Co de Phone Number [facility] [address] [place] [address]. [address] * IR Paracentesis incl imaging guide [...] diagnostic and therapeutic paracentesis. Bakari Wahl CNP, [employer] Hand Procedure and Findings: The procedure was performed [...] Using ultrasound guidance, a 10 cm, 5-F [employer] Centesis catheter was placed into the right [...] for diagnostic andtherapeutic paracentesis. Bakari Wahl CNP, [employer] Hand Procedure and Findings: The procedure was performed [...] is included. Gram Stain Result Cytospin Results: [facility] Gram Stain Result Polymorphonuclear Leukocytes Seen; [facility] Gram Stain Result No Organisms Seen; [facility] Culture Result No Growth After [address] [facility] Fluid ABDOMEN / Unknown 10/10/2024 1:51 PM EDT 10/10/2024 3:56 PM EDT Gerri Peterson MD MICROBIOLOGY - GENERAL ORDERABL ES Final Result [facility] [address] * (ABNORMAL) Body fluid cell count (10/10/2024 1:51 PM EDT) Only the most recent of4 resultswithin the time period is included. Color, Fluid Yellow(A) Colorless, Pale Yellow 10/10/2024 5:[address] [facility] Clarity, Fluid Clear 10/10/2024 5:[address] [facility] Neutrophil %, Fluid 9 % 10/10/2024 5:[address] [facility] Lymphocytes %, Fluid 13 % 10/10/2024 5:[address] [facility] Mesothelial %, Fluid 6 % 10/10/2024 5:[address] [facility] Macrophage %, Fluid 72 % 10/10/2024 5:[address] [facility] RBC, Fluid 2,662 /uL 10/10/2024 4:[address] [facility] Total Nucleated Cells, Fluid 89 /uL 10/10/2024 4:[address] [facility] Comment:Total Nucleated Cell s represent WBCs and other nucleated cells in the fluid such as lining cells. Ascitic Fluid ABDOMEN / Unknown 1:51 PM EDT 10/10/2024 3:56 PM EDT Gerri Peterson MD BODY FLUIDS AND STOOLS ORDERABL ES Final Result [facility] [address] [place] [address], [facility] * UPPER GI ENDOSCOPY (10/10/2024 11:48 AM EDT) 10/10/2024 11:4 8 AM EDT Narrative [facility] - 10/10/2024 12:34 PM EDT [id number] Procedure Date: 10/10/2024 11:48 AM Patient Name: Blair Anderson Date of : 1985 Admit Type: Inpatient Age: 39 Gender: Male Note Status: Finalized Attending MD: Lino Soto MD, [id number] Procedure: Upper GI endoscopy Indications: Gastroesopahgeal variceal [...] verified by the physician, the nurse, the manufacturing technician and the nuclear test technician in the pre-procedure area in the [...] to hypotension Procedure Code(s): --- Professional --- 23214, GC, Esophagogastroduodenoscopy, flexible, transoral; diagnostic, including collection of specimen(s) by brushing or washing, when performed (separate procedure) Diagnosis Code(s): --- Professional --- I85.00, Esophageal 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 All rights reserved. The codes documented in this report are preliminary and upon tenoner operator review may be revised to meet [...] 12:10:16 PM Scope Out: 12:17:[address] [place] [address], [address] us Provider Not In System PROCEDURE/MINOR SURGICAL ORDERABLES Final Result [facility] * ECHO STRESS W/ CONTRAST (10/09/2024 4:37 PM EDT) Anatomical Region Laterality Modality Chest Ultrasound 10/09/2024 2:40 PM EDT Narrative 10/09/2024 6:45 PM EDT * [facility]* [address] [place] [id number] Stress Echocardiogram Patient: Blair Anderson Room: 8142 Height: 76in MR Number: [id number] : 1985 Weight: 262lb Account: [id number] Gender: M BP: 125 / 77 Study Date: 10/09/2024 Age: 39 BSA: 2.48m^2 Referring physician: Gerri Peterson Interpreting physician: Tonya Henriquez MD FELLOW Lisa Jha MD PERFORMING Tonya Henriquez MD TRACK WALKER [employer] ORDERING Gerri Peterson REFERRING Gerri [...] was augmented by the addition of hand piccoloist and leg lifts. The infusion was terminated [...] at baseline or with provocation, shows no poqyk-ca-hdld atrial level shunt. - Pulmonary arteries: Systolic [...] at baseline or with provocation, shows no irqnu-kn-vipg atrial level shunt. Pulmonary artery: - Systolic [...] at baseline or with provocation, shows no ohits-kc-ncll atrial level shunt. Pericardium: - There is [...] peak heart rate and blood pressure was 31272md Hg/min. Stress testing did not produce any [...] Reviewed and confirmed by Tonya Henriquez MD [id number] Procedure Note Tonya Henriquez MD - 10/09/2024 * [facility]* [address] [place] [address] Stress Echocardiogram Patient: Blair Anderson Room: 8142 Height: 76in MR Number: [id number] : 1985 Weight: 262lb Account: [id number] Gender: M BP: 125 / 77 Study Date: 10/09/2024 Age: 39 BSA: 2.48m^2 Referring physician: Gerri Peterson Interpreting physician: Tonya Henriquez MD FELLOW Lisa Jha MD PERFORMING Tonya Henriquez MD TRACK WALKER [employer] ORDERING Gerri Peterson REFERRING Gerri Peterson ATTENDING Tequila Newton ADMITTING Gómez Blanchard Procedure:STRESS ECHO - PHARMACOLOGIC Order: Indications: Pre-Operative Clearance (Z01.818). PMH: EtOH Use Disorder. Risk factors: Hypertension. Dyslipidemia. Study data: Height: 76in. 193cm. Weight: 262lb. 118.8kg. The previousstudy was not available, so comparison was made to the report of 07/15/2024. Study status: Routine. Procedure: [facility] A baseline ECG was recorded. [...] was augmented by the addition of hand piccoloist and leg lifts. The infusion was terminated [...] at baseline or with provocation, shows no vxxia-lu-uxxd atrial level shunt. - Pulmonary arteries: Systolic [...] study at baseline or with provocation, showsno zqvvn-rt-ioak atrial level shunt. Pulmonary artery: - Systolic [...] at baseline or with provocation, shows no yigvv-nl-jlpf atrial level shunt. Pericardium: - There is [...] heart rate). The maximal predicted heart rate [id number]. The target heart rate was 152bpm. The target heart rate was achieved.The heart rate response to stress is normal. There is a normal resting blood pressure with an appropriate response to stress. The rate-pressureproduct for the peak heart rate and blood pressure was 24128cq Hg/min. Stress testing did not produce any [...] Reviewed and confirmed by Tonya Henriquez MD [id number] us Gerri Peterson MD CV ECHO ORDERABLES Final Result * Renal Tx Recipient (10/09/2024 4:59 AM EDT) Renal Transplant Recipient The request and specimen(s) for this test have been received and transported to the [facility] at [address] [place] [address]. The [facility] will report results directly to the client. 10/09/2024 7:[address] [facility] Blood 10/09/2024 4:59 AM EDT 10/09/2024 7:26 AM EDT us Aaron Gonzalez MD LAB BLOOD ORDERABLES Final Resu lt [facility] [address] [facility]. [address] * (ABNORMAL) MMR(IgG) Panel (Measles, Mumps, Rubella) (10/08/2024 10:25 AM EDT) Only the most recent of2 resultswithin the time period is included. Mumps IgG Positive 10/08/2024 11:[address] [facility] MUMPS IGG NUM 99.00(H) 0.0 - 8.9 U/mL 10/08/2024 11:[address] [facility] Rubella IgG Scr Positive 10/08/2024 11:[address] [facility] RUB NUM 4.15(H) 0.00 - 0.89 INDEX 10/08/2024 11:[address] [facility] Rubeola Ab, IgG Positive 10/08/2024 11:[address] [facility] RUB IGG NUM 273.00(H) 0.00 - 13.40 U/mL 10/08/2024 11:[address] [facility] Serum 10/08/2024 10:2 5 AM [...] LAB BLOOD ORDERABLES Final Resu lt [facility] [address] * QuantiFERON TB2 Ag (10/08/2024 10:25 AM EDT) QuantiFERON TB2 Ag Value 0.07 10/10/2024 10:[address] [facility] Plasma 10/08/2024 10:2 5 AM EDT 10/08/2024 11:05 AM EDT Gerri Peterson MD LAB BLOOD ORDERABLES Final Resu lt [facility] [address] [facility]. [address] * QuantiFERON TB1 Ag (10/08/2024 10:25 AM EDT) QuantiFERON TB1 Ag Value 0.06 10/10/2024 10:[address] [facility] Plasma 10/08/2024 10:2 5 AM EDT 10/08/2024 11:05 AM EDT Gerri Peterson MD LAB BLOOD ORDERABLES Final Resu lt [facility] [address] [facility]. [address] * QuantiFERON Nil (10/08/2024 10:25 AM EDT) QuantiFERON Nil 0.06 10:[address] [facility] Plasma 10/08/2024 10:2 5 AM EDT 10/08/2024 11:05 AM EDT Gerri Peterson MD LAB BLOOD ORDERABLES Final Resu lt [facility] [address] [facility]. [address] * QuantiFERON Mitogen (10/08/2024 10:25 AM EDT) QuantiFERON Interpretation Negative Negative 10/10/2024 10:[address] [facility] Comment:Negative result geovanny cates M. tuberculosis infection is NOT likely. Negative results do not preclude tuberculosis infection (especially in immunosuppressed patients). Negative results have a TB antigen minus Nil value less than 0.35 IU/mL. In cases with high suspicion of disease, retesting or additional testing with medical evaluation may be useful. QuantiFERON Mitogen 4.87 10/10 10:[address] [facility] Plasma 10/08/2024 10:2 5 AM EDT 10/08/2024 11:05 AM EDT Narrative [facility] - 10/10/2024 10:41 AM EDT The [...] LAB BLOOD ORDERABLES Final Resu lt [facility] [address] * (ABNORMAL) Vitamin D 25 Hydroxy (10/08/2024 10:25 AM EDT) Vit D, 25-Hydroxy 7.1(L) 30.0 - 100.0 ng/mL 10/08/2024 11:36 AM EDT [facility] Comment: Vitamin D deficiency has been defined by the [place] [employer] (IOM) and an Endocrine Society [...] Resu lt Performing Organization Address City/[facility] Co de Phone Number [facility] [address] * Reticulocyte Count, Auto (10/08/2024 7:41 AM EDT) Retic Ct Pct 1.35 0.50 - 2.00 % 10/08/2024 9:[address] [facility] Retic Ct Abs 26,190 25,000 - 90,000 /uL 10/08/2024 9:[address] [facility] Immature Retic Fract 0.37 0.09 - 0.56 10/08/2024 9:[address] [facility] Whole Blood 10/08/2024 7:41 AM EDT 10/08/2024 8:51 AM EDT us Gómez Blanchard MD LAB BLOOD ORDERABLES Final Res ult Performing Organization Address City/[facility]/ZIP Co de Phone Number [facility] [address] [facility]. [address] * (ABNORMAL) Haptoglobin (10/08/2024 7:41 AM EDT) Haptoglobin <30(L) 44 - 215 mg/dL 10/08/2024 8:[address] [facility] Serum 10/08/2024 7:41 AM EDT 10/08/2024 7:51 AM EDT Kush Posada MD, PhD LAB BLOOD ORDERABLES Final Result [facility] [address] * (ABNORMAL) Lactate dehydrogenase (10/08/2024 5:36 AM EDT) [facility] LD 102(L) 110 - 270 U/L 10/08/2024 8:[address] [facility] Plasma 10/08/2024 5:36 AM EDT 10/08/2024 7:58 AM EDT Gómez Blanchard MD LAB BLOOD ORDERABLES Final Res ult Performing Organization Address City/[facility]/ZIP Co de Phone Number [facility] [address] [facility]. [address] * Enteric Pathogen Panel (10/07/2024 10:50 PM EDT) Only the most recent of2 resultswithin the time period is included. [facility] Campylobacter Group (C. ecoli, C. jejuni, C. trino) Not Detected Not Detected 10/08/2024 4:[address] [facility] Salmonella species Not Detected Not Detected 10/08/2024 4:[address] [facility] Shigella species Not Detected Not Detected 10/08/2024 4:[address] [facility] Vibrio Group (Vibrio cholerae, Vibrio parahaemolyticus) Not Detected Not Detected 10/08/2024 4:[address] [facility] Yersinia enterocolitica Not Detected Not Detected 10/08/2024 4:[address] [facility] Shiga toxin 1 Not Detected Not Detected 10/08/2024 4:[address] [facility] Shiga toxin 2 Not Detected Not Detected 10/08/2024 4:[address] [facility] Norovirus Not Detected Not Detected 10/08/2024 4:[address] [facility] Rotavirus Not Detected Not Detected 10/08/2024 4:[address] [facility] Comment: The Enteric Pathogen Panel [...] FLUIDS AND STOOLS ORDERABLE S Final Result [facility] [address] [id number], [facility] * Urine Drug Confirmation (10/07/2024 10:50 PM EDT) Only the most recent of2 resultswithin the time period is included. BARBITURATES NOT PRESENT 10/09/2024 1:33 PM EDT [facility] BENZODIAZEPINES PRESENT 1:[address] [facility] Nordiazepam 3 ng/mL 10/09/2024 1:[address] [facility] Temazepam 6 ng/mL 10/09/2024 1:[address] [facility] CANNABINOIDS NOT PRESENT 10/09/2024 1:[address] [facility] EAP SPECIALIST STIMULANTS NOT PRESENT 1:[address] [facility] OPIOID ANALGESICS PRESENT 025 1:[address] [facility] Oxycodone 300 ng/mL 10/09/2024 1:[address] [facility] Oxymorphone 32 ng/mL 10/09/2024 1:[address] [facility] Tramadol >1000 ng/mL 10/09/2024 1:[address] [facility] OPIOID ANTAGONISTS NOT PRESENT 10/09 1:[address] [facility] SEDATIVES/MUSCLE RELAXANTS NOT PRESENT 10/09/2024 1:[address] [facility] TRICYCLIC ANTIDEPRESSANTS NOT PRESENT 10/09/2024 1:[address] [facility] Urine 10/07/2024 10:5 0 PM EDT 10/08/2024 3:00 AM EDT Gerri Peterson MD URINE ORDERABLES Final Result [facility] [address] [facility]. [address] * Giardia Cryptosporidium Antigens (10/07/2024 10:50 [...] S Final Result Performing Organization Address [facility] Co de Phone Number [facility] [address] [facility]. [address] * Comprehensive Drug Screen (10/07/2024 10:50 PM EDT) Only the most recent of2 resultswithin the time period is included. Creatinine, Ur CANCELED mg/dL 10/08/2024 7:09 AM EDT [facility] Comment:The released value 8 7.30 was canceled by YAQUELIN on 10/08/2024 07:09 BARBITURATES CANCELED HEAL [facility] LAB Butalbital CANCELED [facility] Phenobarbital CANCELED [facility] Secobarbital CANCELED [facility] TH LAB BENZODIAZEPINES CANCELED H E[facility] Alprazolam [facility] Clonazepam [facility] Diazepam [facility] Alpha-Hydroxyalprazo mcknight [facility] Lorazepam CANCELED [facility] Midazolam CANCELED [facility] Nordiazepam CANCELED [facility] LAB Oxazepam [facility] Temazepam CANCELED [facility] CANNABINOIDS CANCELED [facility] THC-COOH CANCELED [facility] EAP SPECIALIST STIMULANTS CANCELED [facility] Cocaine Metabolite(benzoylec gonine) CANCELED [facility] Amphetamine CANCELED [facility] Methamphetamine [facility] MDA CANCELED [facility] MDEA CANCELED [facility] Phencyclindine (PCP) CANCELED [facility] OPIOID ANALGESICS CANCELED [facility] Heroin Metabolite(6-RAMONA) CANCELED [facility] Codeine CANCELED [facility] Morphine CAN[facility]ELED [facility] Hydrocodone CANCELED [facility] Hydromorphone CANCELED [facility] Oxycodone CANCELED [facility] Oxymorphone CANCELED [facility] Meperidine CANCELED [facility] Normeperidine CANCELED [facility] Methadone CANCELED [facility] Methadone Metabolite (EDDP) CANCELED [facility] Tramadol CANCELED [facility] Fentanyl CANCELED [facility] Norfentanyl CANCELED [facility] Sufentanil CANCELED [facility] OPIOID ANTAGONISTS CANCELED [facility] Buprenorphine CANCELED [facility] Norbuprenorphine CAN[facility] Naltrexone CANCELED [facility] Naloxone CANCELED [facility] SEDATIVES/MUSCLE RELAXANTS CANCELED [facility] Carisoprodol CANCELED [facility] Meprobamate CANCELED [facility] TRICYCLIC ANTIDEPRESSANTS CANCELED [facility] Amitriptyline CANCELED [facility] Clomipramine CANCELED [facility] Desipramine CANCELED [facility] Doxepin [facility]ED [facility] Imipramine [facility] Nortriptyline CANCELED [facility] Urine Creatinine CANCELED mg/dL [facility] Nitrite CANCELED [facility] Glutaraldehyde CANCELED [facility] pH CANCELED 10/08/2024 7:[address] [facility] Comment:The released value 5 .6 was canceled by YAQUELIN on 10/08/2024 07:09 Specific Manning CANCELED 10/09/19 7:[address] [facility] Comment:The released value 1 .009 was canceled by YAQUELIN on 10/08/2024 07:[address] [facility] Pyridinium Chlorochromate CANCELED [facility] Urine 10/07/2024 10:5 0 PM EDT 10/08/2024 2:[address] [facility] - 10/08/2024 7:09 AM EDT See accn [id number] us Gerri Peterson MD URINE ORDERABLES Edited Result - Final [facility] [address] [id number], [facility] * (ABNORMAL) Urine Drug Screen Reflex to Confirmation (10/07/2024 10:50 PM EDT) Only the most recent of2 resultswithin the time period is included. Amphetamine, 500 ng/mL Cutoff Negative Negative 10/08/2024 3:[address] [facility] Barbiturates UR, 300 ng/mL Cutoff Negative Negative 10/08/2024 3:[address] [facility] Buprenorphine, 5 ng/mL Cutoff Negative Negative 10/08/2024 3:[address] [facility] Benzodiazepines UR, 300 ng/mL Cutoff Negative Negative 10/08/2024 3:[address] [facility] Cocaine UR, 300 ng/mL Cutoff Negative Negative 10/08/2024 3:[address] [facility] Methadone, UR, 300 ng/mL Cutoff Negative Negative 10/08/2024 3:[address] [facility] Opiates UR, 300 ng/mL Cutoff Negative Negative 10/08/2024 3:[address] [facility] Oxycodone, 100 ng/mL Cutoff Presumptive Positive(A) Negative 10/08/2024 3:[address] [facility] Tricyclic Antidepressants, 300 ng/mL Cutoff Negative Negative 10/08/2024 3:[address] [facility] Comment:This test has been d [...] Cutoff Negative Negative 10/08/2024 3:[address] [facility] Comment:This is a screening method only and may be associated with false positive and/or false negative results. Results are not definitive without additional confirmatory testing by mass spectrometry. Fentanyl, 2 ng/mL Cutoff Negative Negative 10/08/2024 3:[address] [facility] Comment:This test has been d [...] PM EDT 10/08/2024 2:[address] [facility] - 10/08/2024 3:00 AM EDT CONFIRMATION TO FOLLOW Gerri Peterson MD URINE ORDERABLES Final Result [facility] [address] * Ova and Parasite Comprehensive w/ Giardia/Crypto (10/07/2024 10:50 PM EDT) O & P Method: Concentration and Trichrome Stain [facility] Results No Amoeba, Ova, Or Parasites Seen. -- O and P examination of additional specimens is recommended only for symptomatic patients, immunosuppressed patients or those with an appropriate travel history. [facility] Feces FECES / Unknown 10/07/2024 1 0:50 PM EDT 10/08/2024 1:53 AM EDT Comment:F Bisi Hernandez DO MICROBIOLOGY - GENERAL ORDERABLE S Final Result [facility] [address] [facility]. [address] * Hepatitis A IgM (10/07/2024 6:38 PM EDT) Only the most recent of3 resultswithin the time period is included. Hep A IgM Nonreactive Nonreactive 10/07/2024 7:[address] [facility] Serum 10/07/2024 6:38 PM EDT 10/07/2024 6:[address] [facility] - 10/07/2024 7:46 PM EDT IgM anti-HAV not detected. Does not exclude the possibility of exposure to or infection with HAV. Levels of IgM anti-HAV may be below the cut-off in early infection. Gerri Peterson MD LAB BLOOD ORDERABLES Final Resu lt Performing Organization Address [facility] Co de Phone Number [facility] [address] [facility]. [address] * Syphilis Screening (Trepia) (10/07/2024 6:37 PM EDT) Treponema Pallidum Negative Negative 10/07/2024 8:[address] [facility] Comment: No serological evidence of infection with Treponema pallidum (incubating or early primary syphilis cannot be excluded). Serum 10/07/2024 6:37 PM EDT 10/07/2024 6:50 PM EDT Gerri Peterson MD LAB BLOOD ORDERABLES Final Resu lt Performing Organization Address [facility] Co de Phone Number [facility] [address] [facility]. [address] * Phosphatidylethanol Confirmation, B (10/07/2024 6:37 PM EDT) Only the most recent of4 resultswithin the time period is included. PETH 16:0/18.1 (POPETH) <10 Cutoff: 10 ng/mL 10/10/2024 10:[address] [facility] Comment: Phosphatidylethanol (PEth) homologues result [...] Cutoff: 10 ng/mL 10/10/2024 10:[address] [facility] Comment: PEth 16:0/18:2 (PLPEth) Reference ranges are not well established PEth Interpretation Negative. 10/10 10:[address] [facility] Comment: ADDITIONAL INFORMATION This report is intended for use in clinical monitoring and management of patients. It is not intended for use in employment-related testing. This test was developed and its performance characteristics determined by [facility] in a manner consistent with CLIA requirements. This test has not been cleared or approved by the U.S. Food and Drug Administration. Test Performed by: [place] [address] [place] Manager: Kathy Ortiz Ph.D.; CLIA# [id number] Whole Blood 10/07/2024 6:37 PM EDT 10/10/2024 10:42 AM EDT us Gerri Peterson MD LAB BLOOD ORDERABLES Final Resu lt [facility] [address] [place] [address], [facility] * (ABNORMAL) CMV IgG Antibody (10/07/2024 6:37 PM EDT) CMV IgG Positive(A ) Negative 10/07/2024 8:[address] [facility] CMV IGG NUM 8.40(H) 0.00 - 0.59 U/mL 10/07/2024 8:[address] [facility] Serum 10/07/2024 6:37 PM EDT 10/07/2024 6:50 PM EDT us Gerri Peterson MD LAB BLOOD ORDERABLES Final Resu lt [facility] [address] [place] [address], [facility] * (ABNORMAL) Alpha 1 Antitrypsin AAT Quant & Mutation (10/07/2024 6:37 PM EDT) A-1 Antitrypsin 99(L) 101 - 187 mg/dL 10/09/2024 4:[address] [facility] A-1 Antitrypsin Pheno Comment 10/10/2024 4:[address] [facility] Comment: A1A Phenotype is consistent with a heterozygous phenotype consisting of one M (normal) allele and one allele that cannot be identified at this time. The unknown allele is not consistent with Z (deficient), S (deficient), or F (deficient). MM Phenotype is considered to be normal , producing normal serum levels of [id number] inhibitor and not associated with clinical disease. [...] - 10/10/2024 4:08 PM EDT PERFORMED AT: [facility] [id number] BANKING PIN ADJUSTER: Bassam Khalil, PhD PHONE: [phone] PERFORMED AT: [address] [id number] BANKING PIN ADJUSTER: Mandy Abdul MD PHONE: [phone] Gerri Peterson MD LAB BLOOD ORDERABLES Final Resu lt Performing Organization Address [facility] Co de Phone Number [facility] [address] * Strongyloides Ab (10/07/2024 6:37 PM EDT) Strongyloides Ab Negative Negative 10/11/19 11:[address] [facility] Serum 10/07/2024 6:37 PM EDT 10/10/2024 12:[address] [facility] - 10/10/2024 12:07 PM EDT PERFORMED AT: [address] [id number] BANKING PIN ADJUSTER: Mandy Abdul MD PHONE: [phone] Gerri Peterson MD LAB BLOOD ORDERABLES Final Resu lt Performing Organization Address [facility] Co de Phone Number [facility] [address] * Ethanol, Serum (10/07/2024 6:37 PM EDT) Only the most recent of3 resultswithin the time period is included. Ethanol <10 0 - 10 mg/dL 10/07/2024 8:[address] [facility] Serum 10/07/2024 6:37 PM EDT 10/07/2024 6:50 PM EDT Gerri Peterson MD LAB BLOOD ORDERABLES Final Resu lt [facility] [address] [facility]. [address] * Katie-Watkins virus early antigen antibody, IgG (10/07/2024 6:37 PM EDT) Pathologist [facility] EBV Early Antigen Ab, IgG <9.0 0.0 - 8.9 U/mL 10/09/2024 2:[address] [facility] Comment: Negative < 9.0 Equivocal 9.0 - 10.9 Positive >10.9 Serum Frozen 10/07/2024 6:37 PM EDT 10/09/2024 3:[address] [facility] - 10/09/2024 3:07 PM EDT PERFORMED AT: [facility] [address] [id number] BANKING PIN ADJUSTER: Bassam Khalli, PhD PHONE: [phone] Gerri Peterson MD LAB BLOOD ORDERABLES Final Resu lt Performing Organization Address City/[facility] Co de Phone Number [facility] [address] [facility]. [address] * (ABNORMAL) Varicella zoster antibody, IgG (10/07/2024 6:37 PM EDT) Pathologist [facility] Varicella IgG Positive( A) Negative S/CO 10/07/2024 8:[address] [facility] Comment:Result indicates the presence of detectable VZV IgG antibodies. A positive result is generally indicative of exposure to the pathogen or administration of specific immunoglobulins, but it is no indication of active infection or stage of disease. This test is not approved for determining vaccine-induced immunity to varicella zoster virus. VZV NUM 6.76(H) 0.00 - 0.99 S/CO 10/07/2024 8:[address] [facility] Serum 10/07/2024 6:37 PM EDT 10/07/2024 6:50 PM EDT Result [facility] Gerri Peterson MD LAB BLOOD ORDERABLES Final Resu lt Performing Organization Address City/[facility] Co de Phone Number [facility] [address] [facility]. [address] * TSH (Thyroid Stimulating Hormone) (10/07/2024 6:37 PM EDT) Only the most recent of2 resultswithin the time period is included. TSH 0.81 0.45 - 4.12 uIU/mL 10/07/2024 8:[address] [facility] Serum 10/07/2024 6:37 PM EDT 10/07/2024 6:50 PM EDT Result [facility] Gerri Peterson MD LAB BLOOD ORDERABLES Final Resu lt Performing Organization Address [facility] Co de Phone Number [facility] [address] [facility]. [address] * IgA (10/07/2024 6:37 PM EDT) IgA 227.0 70.0 - 400.0 mg/dL 10/08/2024 11:[address] [facility] Comment:Please interpret the se findings in conjunction with clinical findings, protein electrophoresis, and immunotyping/immunofixation results. Serum 10/07/2024 6:37 PM EDT 10/07/2024 6:50 PM EDT Result [facility] Gerri Peterson MD LAB BLOOD ORDERABLES Final Resu lt Performing Organization Address [facility] Co de Phone Number [facility] [address] [facility]. [address] * (ABNORMAL) Lipid Profile (10/07/2024 6:37 [...] - 200 mg/dL 10/07/2024 7:[address] [facility] Triglycerides 30 10 - 149 mg/dL 10/07/2024 7:[address] [facility] HDL 4(L) 60 - 92 mg/dL 10/07/2024 7:[address] [facility] Comment: LIPID PROFILE INTERPRETATION CHOLESTEROL,TOTAL(mg/dL) [...] Cholesterol See Note mg/dL 7:[address] [facility] Comment:Unable to calculate result either because contributing result(s) are outside of reportable range or are not available. Plasma 10/07/2024 6:37 PM EDT 10/07/2024 7:[address] [facility] - 10/07/2024 7:42 PM EDT LDL cholesterol calculated using the Friedewald equation. us Gerri Peterson MD LAB BLOOD ORDERABLES Final Resu lt [facility] [address] [facility] [place] [address], [facility] * X-ray Mandible minimum 4-views [...] EXAM: US ABDOMEN COMPLETE EXAM: US DUPLEX [id number] COMPLETE INDICATION: elevated bilirubin COMPARISON: Ultrasound and [...] EXAM: US ABDOMEN COMPLETE EXAM: US DUPLEX [id number] COMPLETE INDICATION: elevated bilirubin COMPARISON: Ultrasound and [...] 4:26 PM EDT us Bisi Hernandez DO [facility] US ORDERABLES Final Result * AFP Tumor Marker (10/07/2024 6:00 AM EDT) Only the most recent of3 resultswithin the time period is included. AFP-Tumor Marker 2.0 0.0 - 9.0 ng/mL 10/07/2024 7:11 AM EDT [facility] Serum 10/07/2024 6:00 AM EDT 10/07/2024 6:39 AM EDT Narrative [facility] - 10/07/2024 7:11 AM EDT The testing method for AFP is a chemiluminescent immunoassay manufactured by [employer] Concentrations of AFP obtained by different assay methods or kits may vary and cannot be used interchangeably. AFP results cannot be interpreted as absolute evidence of the presence or absence of malignant disease. Ni Rivera MD LAB BLOOD ORDERABLES Final Resul t [facility] [address] * Osmolality (10/06/2024 2:50 PM EDT) Osmolality, Measured 304 278 - 305 mOsm/kg 10/06/2024 3:[address] [facility] Serum 10/06/2024 2:50 PM EDT 10/06/2024 2:56 PM EDT Jani Vanegas MD LAB BLOOD ORDERABLES Final Resul t Performing Organization Address [facility] Co de Phone Number [facility] [address] [facility]. [address] * CT Head WO contrast (10/06/2024 [...] Kush Posada MD, PhD IMG CT ORDERABLES [facility] Result * Sodium, urine, random (10/06/2024 1:25 PM EDT) Only the most recent of3 resultswithin the time period is included. Sodium, Ur <10 mmol/L 10/06/2024 1:[address] [facility] Comment:Reference range not established for this test. Urine 10/06/2024 1:25 PM EDT 10/06/2024 1:32 PM EDT Jani Vanegas MD URINE ORDERABLES Final Result [facility] [address] * Potassium, urine, random (10/06/2024 1:25 PM EDT) Only the most recent of3 resultswithin the time period is included. Potassium Urine Random 50.0 mmol/L 10/06/2024 1:[address] [facility] Comment:Reference range not established for this test. Urine 10/06/2024 1:25 PM EDT 10/06/2024 1:32 PM EDT us Jani Vanegas MD URINE ORDERABLES Final Result Performing Organization Address [facility] de Phone Number [facility] [address] [place] [address]. [address] * Osmolality, Urine (10/06/2024 1:25 PM EDT) Osmolality, Ur 386 50 - 1,200 mOsm/kg 10/06/2024 1:[address] [facility] Urine 10/06/2024 1:25 PM EDT 10/06/2024 1:32 PM EDT us Jani Vanegas MD URINE ORDERABLES Final Result Performing Organization Address [facility] de Phone Number [facility] [address] [place] [address]. [address] * Creatinine, Urine, Random (10/06/2024 1:25 PM EDT) Only the most recent of2 resultswithin the time period is included. Creatinine, Urine 87.40 mg/dL 10/06/2024 1:[address] [facility] Comment:Reference range not established for this test. Urine 10/06/2024 1:25 PM EDT 10/06/2024 1:32 PM EDT us Jani Vanegas MD URINE ORDERABLES Final Result Performing Organization Address [facility] de Phone Number [facility] [address] [facility]. [address] * Chloride, urine, random (10/06/2024 1:25 PM EDT) Only the most recent of3 resultswithin the time period is included. Chloride, Ur <15 mmol/L 10/06/2024 1:[address] [facility] Comment:Reference range not established for this test. Urine 10/06/2024 1:25 PM EDT 10/06/2024 1:32 PM EDT us Jani Vanegas MD URINE ORDERABLES Final Result [facility] [address] [facility]. [address] * (ABNORMAL) Salicylate Level (10/06/2024 4:01 AM EDT) Pathologist [facility] Salicylate Lvl <3(L) 10 - 30 mg/dL 10/06/2024 4:[address] [facility] Serum 10/06/2024 4:01 AM EDT 10/06/2024 4:22 AM EDT Bisi Hernandez DO LAB BLOOD ORDERABLES Final Resul t Performing Organization Address City/[facility] Co de Phone Number [facility] [address] [facility]. [address] * Upper Respiratory Viral/Bacterial Panel-MANAGER TECHNICAL SALES Only (10/06/2024 3:12 AM EDT) [facility] Adenovirus Not Detected Not Detected 10/06/2024 11:[address] [facility] Coronavirus (229E,HKU1,NL63,OC 43) Not Detected Not Detected 10/06/2024 11:[address] [facility] SARS-CoV-2 Not Detected Not Detected 10/06/2024 11:[address] [facility] Human Metapneumovirus Not Detected Not Detected 10/06/2024 11:[address] [facility] Human Rhinovirus/Enterov irus Not Detected Not Detected 10/06/2024 11:[address] [facility] Influenza A Not Detected Not Detected 10/06/2024 11:[address] [facility] Influenza A H1 Not Detected Not Detected 10/06/2024 11:[address] [facility] Influenza A/H1-2009 Not Detected Not Detected 10/06/2024 11:[address] [facility] Influenza A H3 Not Detected Not Detected 10/06/2024 11:[address] [facility] Influenza B Not Detected Not Detected 10/06/2024 11:[address] [facility] Parainfluenza 1 Not Detected Not Detected 10/06/2024 11:[address] [facility] Parainfluenza 2 Not Detected Not Detected 10/06/2024 11:[address] [facility] Parainfluenza 3 Not Detected Not Detected 10/06/2024 11:[address] [facility] Parainfluenza 4 Not Detected Not Detected 10/06/2024 11:[address] [facility] Resp. Syncycial Virus A Not Detected Not Detected 10/06/2024 11:[address] [facility] Resp. Syncycial Virus B Not Detected Not Detected 10/06/2024 11:[address] [facility] Chlamydia pneumoniae Not Detected Not Detected 10/06/2024 11:[address] [facility] Mycoplasma pneumoniae Not Detected Not Detected 10/06/2024 11:[address] [facility] Comment: The Respiratory Viral-Bacterial Panel [...] have been sent to the [facility] in accordance with state requirements. For a fact sheet for healthcare providers, see https://www.fda.gov/media/713763/download. For a fact sheet for patients, see https://www.fda.gov/media/362957/download. Nasopharyngeal Swab NASOPHARYNGEAL SWAB / Unknown 10/06/2024 3:12 AM EDT 10/06/2024 5:41 PM EDT Comment:MANAGER TECHNICAL SALES Bisi Hernandez DO BODY FLUIDS AND STOOLS ORDERABLE S Final Result [facility] [address] [facility]. [address] * Thyroid Function [place] (10/06/2024 1:04 AM EDT) TSH 0.84 0.45 - 4.12 uIU/mL 10/06/2024 2:[address] [facility] Serum 10/06/2024 1:04 AM EDT 10/06/2024 1:39 AM EDT Bisi Hernandez DO LAB BLOOD ORDERABLES Final Resul t Performing Organization Address [facility] Co de Phone Number [facility] [address] [facility]. [address] * #2 Blood culture-Peripheral site 2 (10/06/2024 1:04 AM EDT) Only the most recent of4 resultswithin the time period is included. Culture Result No Growth After [address] [facility] Blood BLOOD SPECIMEN / Unknown 10/06/2024 1:04 AM EDT 10/06/2024 4:[address] [facility] - 10/11/2024 5:05 AM EDT Suboptimal volume of blood received. Interpret results with caution. Bisi Hernandez DO MICROBIOLOGY - GENERAL ORDERABLE S Final Result Performing Organization Address [facility] Co de Phone Number [facility] [address] [facility]. [address] * (ABNORMAL) Acetaminophen Level (10/06/2024 1:04 AM EDT) Acetaminophen Level <10(L) 10 - 30 ug/mL 10/06/2024 2:[address] [facility] Serum 10/06/2024 1:04 AM EDT 10/06/2024 1:30 AM EDT Result [facility] Bisi Hernandez DO LAB BLOOD ORDERABLES Final Resul t [facility] [address] [place] [address], [facility] * Renal Function Panel, Fasting (09/16/2024 12:20 PM EDT) EGFR 31 Anion Gap 14.3 <=30 mmol/L Plasma Result [facility] Gerri Peterson MD LAB BLOOD ORDERABLES Final Resu lt * Glucose, random (09/16/2024 12:20 PM EDT) Glucose 97 60 - 200 mg/dL Plasma Result [facility] Gerri Peterson MD LAB BLOOD ORDERABLES Final Resu lt * (ABNORMAL) Hepatic function panel (09/16/2024 12:20 PM EDT) Alkaline Phosphatase 144 U/L ALT 40 U/L AST 76 U/L Total Bilirubin 19.8(A) 0.1 - 1.4 mg/dL Protein, Total 6.3 Albumin 3.4(A) 3.5 - 5.0 g/dL Blood Result [facility] Gerri Peterson MD LAB BLOOD ORDERABLES Final [...] STOOLS ORDERA BLES Final Result [facility] [address] [id number] * Clostridium Difficile Toxin A/B Antigen [...] BLES Final Result Performing Organization Address [facility]/ZIP Co de Phone Number [facility] [address] * Phosphorus, AM (09/05/2024 7:24 AM EDT) Only the most recent of3 resultswithin the time period is included. Phosphorus 2.1 2.1 - 4.7 mg/dL 09/05/2024 8:[address] [facility] Plasma 09/05/2024 7:24 AM EDT 09/05/2024 7:38 AM EDT us Kiet Ramirez MD LAB BLOOD ORDERABLES Denisse l Result Performing Organization Address [facility] Co de Phone Number [facility] [address] [facility]. [address] * (ABNORMAL) Basic Metabolic panel, AM (09/05/2024 7:24 AM EDT) Only the most recent of10 resultswithin the time period is included. Sodium 134 133 - 146 mmol/L 09/05/2024 8:[address] [facility] Potassium 3.6 3.5 - 5.3 mmol/L 09/05/2024 8:[address] [facility] Chloride 107 98 - 110 mmol/L 09/05/2024 8:[address] [facility] CO2 19(L) 21 - 33 mmol/L 09/05/2024 8:[address] [facility] Anion Gap 8 3 - 16 mmol/L 09/05/2024 8:[address] [facility] BUN 42(H) 7 - 25 mg/dL 09/05/2024 8:[address] [facility] Creatinine 2.92(H) 0.60 - 1.30 mg/dL 09/05/2024 8:[address] [facility] Glucose 108(H) 70 - 100 mg/dL 09/05/2024 8:[address] [facility] Calcium 8.6 8.6 - 10.3 mg/dL 09/05/2024 8:[address] [facility] Osmolality, Calculated 289 278 - 305 mOsm/kg 09/05/2024 8:[address] [facility] EGFR 27 09/05/2024 8:[address] [facility] Comment:As of 2021, the estimated [...] MD LAB BLOOD ORDERABLES Denisse valle Result [facility] [address] [place] [address], [facility] * Fluid Creatinine (09/04/2024 11:01 AM EDT) Pathologist Yemi Creat, Fluid 3.17 mg/dL 09/04/2024 6:[address] [facility] Comment:Reference range not established for this test. Abdominal Fluid ABDOMEN / Unknown 025 11:01 AM EDT 09/04/2024 5:[address] [facility] - 09/04/2024 6:15 PM EDT This assay has been modified from the explosives worker's specifications and has been validated with performance characteristics determined by [facility] in accordance with federal regulations [...] OR DERABLES Final Result Performing Organization Address [facility] Co de Phone Number [facility] [address] [place] [address] * Protein, Body fluid (09/04/2024 11:01 AM EDT) Only the most recent of2 resultswithin the time period is included. Protein, Fluid <3.0 g/dL 09/04/2024 6:[address] [facility] Comment:Reference range not established for this test. Ascitic Fluid ABDOMEN / Unknown 11:01 AM EDT 09/04/2024 5:[address] [facility] - 09/04/2024 6:15 PM EDT This assay has been modified from the explosives worker's specifications and has been validated with performance characteristics determined by [facility] in accordance with federal regulations [...] OR DERABLES Final Result Performing Organization Address [facility] Co de Phone Number [facility] [address] * Albumin, fluid (09/04/2024 11:01 AM EDT) Only the most recent of2 resultswithin the time period is included. Albumin, Fluid <1.5 g/dL 09/04/2024 6:[address] [facility] Comment:Reference range not established for this test. Abdominal Fluid ABDOMEN / Unknown 025 11:01 AM EDT 09/04/2024 5:[address] [facility] - 09/04/2024 6:15 PM EDT This assay has been modified from the explosives worker's specifications and has been validated with performance characteristics determined by [facility] in accordance with federal regulations [...] City/[facility]/ZIP Co de Phone Number [facility] [address] * Lipase (09/04/2024 5:22 AM EDT) Only the most recent of2 resultswithin the time period is included. Lipase 40 4 - 82 U/L 09/04/2024 11:[address] [facility] Plasma 09/04/2024 5:22 AM EDT 09/04/2024 11:23 AM EDT Kiet Ramirez MD LAB BLOOD ORDERABLES Denisse l Result [facility] [address] * MRSA/Staph aureus DNA ??? Diagnostic testing for pneumonia (09/03/2024 3:21 PM EDT) MRSA, PCR Negative Negative 09/03/2024 7:[address] [facility] Staph Aureus, PCR Negative Negative 09/03/2024 7:[address] [facility] Comment:Test method is a FDA approved amplified DNA assay. Nares Swab BOTH ANTERIOR NARES / Unknown 09/03/2024 3:21 PM EDT 09/03/2024 4:[address] [facility] - 09/03/2024 7:48 PM EDT Diagnosis of MRSA Pneumonia->Yes - Place [id number] (this order) Kiet Ramirez MD MICROBIOLOGY - GENERAL OR DERABLES Final Result [facility] [address] [place] [address], [facility] * (ABNORMAL) Urine Drug Screen without Confirmation, STAT (09/03/2024 3:21 PM EDT) Amphetamine, 500 ng/mL Cutoff Negative Negative 09/03/2024 4:[address] [facility] Barbiturates UR, 300 ng/mL Cutoff Negative Negative 09/03/2024 4:[address] [facility] Buprenorphine, 5 ng/mL Cutoff Negative Negative 09/03/2024 4:[address] [facility] Benzodiazepines UR, 300 ng/mL Cutoff Negative Negative 09/03/2024 4:[address] [facility] Cocaine UR, 300 ng/mL Cutoff Negative Negative 09/03/2024 4:[address] [facility] Methadone, UR, 300 ng/mL Cutoff Negative Negative 09/03/2024 4:[address] [facility] Opiates UR, 300 ng/mL Cutoff Presumptive Positive(A) Negative 09/03/2024 4:[address] [facility] Oxycodone, 100 ng/mL Cutoff Negative Negative 09/03/2024 4:[address] [facility] Tricyclic Antidepressants, 300 ng/mL Cutoff Negative Negative 09/03/2024 4:[address] [facility] Comment:This test has been d [...] Cutoff Negative Negative 09/03/2024 4:[address] [facility] Comment:This is a screening method only and may be associated with false positive and/or false negative results. Results are not definitive without additional confirmatory testing by mass spectrometry. Fentanyl, 2 ng/mL Cutoff Negative Negative 09/03/2024 4:[address] [facility] Comment:This test has been d [...] Final Re sult Performing Organization Address [facility] de Phone Number [facility] [address] [place] [address] * Urea Nitrogen, Urine (09/03/2024 3:21 PM EDT) Urea Nitrogen, Ur 350 mg/dL 09/03/2024 4:[address] [facility] Comment:Reference range not established for this test. Urine 09/03/2024 3:21 PM EDT 09/03/2024 3:30 PM EDT Kiet Ramirez MD URINE ORDERABLES Final Re sult Performing Organization Address [facility] de Phone Number [facility] [address] * Hepatitis B Core IgM (09/03/2024 1:43 PM EDT) Hep B Core IgM Nonreactive Nonreactive 09/03/2024 3:[address] [facility] Serum 09/03/2024 1:43 PM EDT 09/03/2024 2:[address] [facility] - 09/03/2024 3:50 PM EDT The result will [facility] immediately [facility] when marked final. Do you believe the result release to [facility] should be delayed based on either the Preventing Harm or Privacy exceptions of the Cures Rule?->No IgM anti-HBc not detected. Does not exclude the possibility of exposure to or infection with HBV. Kiet Ramirez MD LAB BLOOD ORDERABLES Denisse l Result Performing Organization Address [facility]/ZIP Co de Phone Number [facility] [address] [facility]. [address] * T4, Free (09/03/2024 1:43 PM EDT) Free T4 0.74 0.61 - 1.76 ng/dL 09/03/2024 6:[address] [facility] Comment:Biotin megadosing (c onsumption >300 mcg/day) may falsely elevate free T4. When indicated, discontinue megadosing for 1 week and repeat testing. Serum 09/03/2024 1:43 PM EDT 09/03/2024 2:17 PM EDT Kiet Ramirez MD LAB BLOOD ORDERABLES Denisse l Result Performing Organization Address [facility] Co de Phone Number [facility] [address] [facility]. [address] * (ABNORMAL) Urinalysis, Microscopic (09/03/2024 10:28 AM EDT) RBC, UA 1 0 - 3 /HPF 09/03/2024 11:[address] [facility] WBC, UA 1 0 - 5 /HPF 09/03/2024 11:[address] [facility] Squam Epithel, UA <1 0 - 5 /HPF 09/03/2024 11:[address] [facility] Bacteria, UA Occasional (A) None Seen /HPF 09/03/2024 11:[address] [facility] Mucus, UA Present(A) None Seen /HPF 09/03/2024 11:[address] [facility] Urine 09/03/2024 10:2 8 AM EDT 09/03/2024 11:24 AM EDT Kiet Ramirez MD URINE ORDERABLES Final Re sult [facility] [address] [place] [id number], [facility] * (ABNORMAL) Urinalysis-Macroscopic w/Rfx to Microsco (09/03/2024 10:28 AM EDT) Color, UA Yellow Yellow,Straw 09/03/2024 11:[address] [facility] Clarity, UA Cloudy(A) Clear 09/03/2024 11:[address] [facility] Specific Manning, UA >1.035(H) 1.005 - 1.035 09/03/2024 11:[address] [facility] pH, UA 6.5 5.0 - 8.0 09/03/2024 11:[address] [facility] Protein, UA Trace(A) Negative mg/dL 09/03/2024 11:[address] [facility] Glucose, UA Negative Negative mg/dL 09/03/2024 11:[address] [facility] Ketones, UA Negative Negative mg/dL 09/03/2024 11:[address] [facility] Bilirubin, UA Small(A) Negative 09/03/2024 11:[address] [facility] Blood, UA Negative Negative 09/03/2024 11:[address] [facility] Nitrite, UA Negative Negative 09/03/2024 11:[address] [facility] Urobilinogen, UA <2.0 0.2 - 1.9 mg/dL 09/03/2024 11:[address] [facility] Leukocyte Esterase, UA Negative Negative 09/03/2024 11:[address] [facility] Urine 09/03/2024 10:2 8 AM EDT 09/03/2024 10:55 AM EDT us Kiet Ramirez MD URINE ORDERABLES Final Re sult Performing Organization Address [facility]/ZIP Co de Phone Number [facility] [address] [facility]. [address] * Lactic acid, venous (09/03/2024 7:55 AM EDT) Lactate, Shakeel 1.8 0.5 - 2.2 mmol/L 09/03/2024 8:[address] [facility] Whole Blood VENOUS STRUCTURE / Unknown 09/03/2024 7:55 AM EDT 09/03/2024 7:59 AM EDT Jarrod Alas MD LAB BLOOD ORDERABLES Final Res ult Performing Organization Address [facility] Co de Phone Number [facility] [address] [facility]. [address] * High Sensitivity Troponin (60min) (09/03/2024 7:18 AM EDT) Only the most recent of2 resultswithin the time period is included. High Sensitivity Troponin 14 0 - 20 ng/L 09/03/2024 7:[address] [facility] Serum 09/03/2024 7:18 AM EDT 09/03/2024 7:[address] [facility] - 09/03/2024 7:49 AM EDT Please draw 60min after time that first troponin is drawn. us Rommel Garland MD LAB BLOOD ORDERABLES Final Resul t Performing Organization Address [facility] Co de Phone Number [facility] 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, VRE- urine 10/31/202410/13 Insurance [facility] [employer] [facility] [employer]PL[employer] GLOBAL Member Subscriber Plan / Payer (Ef fective 2024-Present) Name:Blair Anderson Relation to Subscriber:Self Name:JustinLanke Payer ID:[id number] Group ID:Not on file Type:Transplant Address: [address] [place] [address] Advance Directives For more information, please contact: [phone] * Full Code (Latest Code Status on [...] 9:55 PM 08/19/2024 4:56 PM Care Teams Jd Edwards Relationship Specialty Start Date End Date Enedina Mcguire NP [address] [place] [address] PCP - General Internal Medicine 10/05/24 Maureen Pantoja, ЮЛИЯ Txp Post Coordinator Transplant Hepatology 10/28/24
--- OUTSIDE RECORDS SUMMARY | 2024-11-27 07:57 | XMS_ITS | Encounter Summary ---
Author Organization [facility] Address [address] [place] [address] Care Team Providers Care Outpatient Receptionist Name Role Phone Enedina Mcguire NP Primary Care Provider [phone] Source Comments This information has been disclosed [...] release of HIV test results or diagnoses. [id number] Health Encounter Details Date Type Department Care Team (Late st Contact Info) Description 10/14/2024 Chart Note [facility] Kidney Transplant at [address] [place] [phone] Dean Robles [facility] [id number] Social History Tobacco Use Types Packs/Day Years Used Date Smoking Tobacco: Former Cigarettes Smokeless Tobacco: Current Alcohol Use Standard Drinks/Week Comments Yes 0 (1 standard drink = 0.6 oz pure alcohol) History of alcohol abuse, reports no use in 3 week- typically endorses use as 4 glasses of wine a days Utilities Answer Date Recorded In the past 12 months has [employer], [employer], oil, or water [employer] threatened to shut off services in [...] Guillen 10/14/2024 9:49 AM EDT Dean berman [facility] [address] Case opened TAYLOR Almeida ph [phone] Fx [phone] Liver requested urgent review for slk Approved by [facility] letter to files documented in this encounter Plan of Treatment Upcoming Encounters Date Type Department Care Team (Late st Contact Info) Description 12/05/2024 8:01 AM EDT Hospital Encounter [facility] ENDOSCOPY [address] [place] [phone] Chris Orosco MD [address] [place] [phone] 12/05/2024 8:01 AM EDT - 12/05/2024 8:31 AM EDT Surgery [facility] ENDOSCOPY [address] [place] [phone] Chris Orosco MD [address] [place] [phone] EGD Scheduled Procedures Name Priority Associated Diagnoses [...] documented as of this encounter Care Teams Outpatient Receptionist Relationship Specialty Start Date End Date Enedina Mcguire NP [address] [place] [address] PCP - General Internal Medicine 10/05/24 documented as of this encounter
--- OUTSIDE RECORDS SUMMARY | 2024-11-27 07:58 | XMS_ITS | Encounter Summary ---
Author Organization [facility] Address [address] [place] [address] Care Team Providers Care Radio Adjuster Name Role Phone Enedina Mcguire NP Primary Care Provider [phone] Source Comments This information has been disclosed [...] release of HIV test results or diagnoses. [id number] Health Encounter Details Date Type Department Care Team (Late st Contact Info) Description 10/09/2024 Chart Note [facility] Kidney Transplant at [address] [place] [phone] Dean Robles [facility] [phone] Social History Tobacco Use Types Packs/Day Years Used Date Smoking Tobacco: Former Cigarettes Smokeless Tobacco: Current Alcohol Use Standard Drinks/Week Comments Yes 0 (1 standard drink = 0.6 oz pure alcohol) History of alcohol abuse, reports no use in 3 week- typically endorses use as 4 glasses of wine a days Utilities Answer Date Recorded In the past 12 months has [employer], oil, or water [employer] threatened to shut off services [...] 10:37 AM EDT Dean berman [facility] [phone] Called Cammie Wing [phone] Advised of brandon martínez she was aware Assigning a cm to call me Requested all clinical Advised this is now a SLK Pending cm call back documented in this encounter Plan of Treatment Upcoming Encounters Date Type Department Care Team (Late st Contact Info) Description 12/05/2024 8:01 AM EDT Hospital Encounter [facility] ENDOSCOPY [address] [place] [phone] Chris Orosco MD [address] [place] [phone] 12/05/2024 8:01 AM EDT - 12/05/2024 8:31 AM EDT Surgery [facility] ENDOSCOPY [address] [place] [phone] Chris Orosco MD [address] [place] [phone] EGD Scheduled Procedures Name Priority Associated Diagnoses [...] as of this encounter Care Teams Radio Adjuster Relationship Specialty Start Date End Date Enedina Mcguire NP [address] [place] [address] PCP - General Internal Medicine 10/05/24 documented as of this encounter
--- OUTSIDE RECORDS SUMMARY | 2024-11-27 07:58 | XMS_ITS | Encounter Summary ---
Author Organization [facility] Address [address] [place] [address] Care Team Providers Care Fire Watchman Name Role Phone Enedina Mcguire NP Primary Care Provider [phone] Source Comments This information has been disclosed [...] release of HIV test results or diagnoses. [id number] Health Encounter Details Date Type Department Care [...] Recorded In the past 12 months has [employer], oil, or water [employer] threatened to shut off services in your [...] [facility] ENDOSCOPY [address] [place] [address] Chris Orosco MD [address] [place] [phone] 12/05/2024 8:01 AM EDT - 12/05/2024 8:31 AM EDT Surgery [facility] ENDOSCOPY [address] [place] [address] Chris Orosco MD [address] [place] [phone] EGD Scheduled Procedures Name Priority Associated Diagnoses [...] as of this encounter Care Teams Fire Watchman Relationship Specialty Start Date End Date Enedina Mcguire NP [address] [place] [address] PCP - General Internal Medicine 10/05/24 documented as of this encounter
--- OUTSIDE RECORDS SUMMARY | 2024-11-27 07:58 | XMS_ITS | Encounter Summary ---
Author Organization [facility] Address [facility] [place] [address] Care Team Providers Care Public Address System Installer Name Role Phone Enedina Mcguire NP Primary Care Provider [phone] Source Comments This information has been disclosed [...] release of HIV test results or diagnoses. [id number] Reason for Visit * Reason Comments After Hours Call Encounter Details Date Type Department Care Team ([facility] Contact Info) Description 10/05/2024 Telephone [facility] PATIENT SERVICES [address] [place] [address] Unknown, Attending Provider After Hours [...] Recorded In the past 12 months has [employer], gas, oil, or water [employer] threatened to shut off services in your [...] local ER w/ plans to transfer to [facility] if higher level of care required. [...] Relationship of Caller to Patient and Callback: [phone] Patient of: DR. LINARES Nature of Call: STATES PT IS SHOWING SIGNS OF CONFUSION. PLEASE ADVISE. Wildlife Technician Provider Contacted: DR. RETANA Time and Method [...] Encounter [facility] ENDOSCOPY [address] [place] [address] Chris Orosco MD [address] [place] [phone] 12/05/2024 8:01 AM EDT - 12/05/2024 8:31 AM EDT Surgery [facility] ENDOSCOPY [address] [place] [phone] Chris Orosco MD [address] [place] [phone] EGD Scheduled Procedures Name Priority Associated Diagnoses [...] documented as of this encounter Care Teams Public Address System Installer Relationship Specialty Start Date End Date Enedina Mcguire NP [address] [place] [address] PCP - General Internal Medicine 10/05/24 documented as of this encounter
--- OUTSIDE RECORDS SUMMARY | 2024-11-27 07:58 | XMS_ITS | Encounter Summary ---
Author Organization [facility] Address [address] [place] [address] Care Team Providers Care General Machinist Name Role Phone Enedina Mcguire NP Primary Care Provider [phone] Source Comments This information has been disclosed [...] release of HIV test results or diagnoses. [id number] Health Encounter Details Date Type Department Care Team (Late st Contact Info) Description 10/09/2024 Chart Note [facility] Kidney Transplant at [address] [place] [phone] Dean Robles [facility] [phone] call from Elle [facility] fx [phone] Social History Tobacco Use Types Packs/Day Years Used Date Smoking Tobacco: Former Cigarettes Smokeless Tobacco: Current Alcohol Use Standard Drinks/Week Comments Yes 0 (1 standard drink = 0.6 oz pure alcohol) History of alcohol abuse, reports no use in 3 week- typically endorses use as 4 glasses of wine a days Utilities Answer Date Recorded In the past 12 months has [employer], gas, oil, or water company threatened to [...] - 10/09/2024 11:57 AM EDT Dean berman [facility] [phone] call from Elle the R fx [phone] Set her all clinical Rquesting a urgent review for liver txp UMR/optum case opened 10/05/24 Pends response documented in this encounter Plan of Treatment Upcoming Encounters Date Type Department Care Team (Late st Contact Info) Description 12/05/2024 8:01 AM EDT Hospital Encounter [facility] ENDOSCOPY [address] [place] [phone] Chris Orosco MD [address] [place] [phone] 12/05/2024 8:01 AM EDT - 12/05/2024 8:31 AM EDT Surgery [facility] ENDOSCOPY [address] [place] [phone] Chris Orosco MD [address] [place] [phone] EGD Scheduled Procedures Name Priority Associated Diagnoses [...] as of this encounter Care Teams General Machinist Relationship Specialty Start Date End Date Enedina Mcguire NP [address] [place] [address] PCP - General Internal Medicine 10/05/24 documented as of this encounter
--- OUTSIDE RECORDS SUMMARY | 2024-11-27 07:58 | XMS_ITS | Encounter Summary ---
Author Organization [facility] Address [address] [place] [address] Care Team Providers Care Video Intern Name Role Phone Enedina Mcguire NP Primary Care Provider [phone] Source Comments This information has been disclosed [...] release of HIV test results or diagnoses. [id number] Health Encounter Details Date Type Department Care Team (Late st Contact Info) Description 10/07/2024 Chart Note [facility] Kidney Transplant at [address] [place] [phone] Chey Nicole MA This MA received new [...] In the past 12 months has e [employer], gas, oil, or water [employer] threatened to shut off services in your [...] PT. Will FU once financially cleared. An [employer] fax was sent to [facility] and or referring office to notify of referral acceptance. documented in this encounter Plan of Treatment Upcoming Encounters Date Type Department Care Team (Late st Contact Info) Description 12/05/2024 8:01 AM EDT Hospital Encounter [facility] ENDOSCOPY [address] [place] [phone] Chris Orosco MD [address] [place] [phone] 12/05/2024 8:01 AM EDT - 12/05/2024 8:31 AM EDT Surgery [facility] ENDOSCOPY [address] [place] [phone] Chris Orosco MD [address] [place] [phone] EGD Scheduled Procedures Name Priority Associated Diagnoses Date/Ti me EGD Cirrhosis of liver with ascites, unspecified hepatic cirrhosis type ([facility]) 12/05/2024 8:01 AM EDT documented as of [...] documented as of this encounter Care Teams Video Intern Relationship Specialty Start Date End Date Enedina Mcguire NP [address] [place] [address] PCP - General Internal Medicine 10/05/24 documented as of this encounter
--- OUTSIDE RECORDS SUMMARY | 2024-11-27 07:58 | XMS_ITS | Encounter Summary ---
Author Organization [facility] Address [address] [place] [address] Care Team Providers Care Deep Fat Cook Fry Name Role Phone Enedina Mcguire NP Primary Care Provider [phone] Source Comments This information has been disclosed [...] release of HIV test results or diagnoses. [id number] Health Encounter Details Date Type Department Care Team (Late st Contact Info) Description 10/07/2024 Chart Note [facility] Kidney Transplant at [address] [address] Anny Cote RN Simultaneous Liver-Kidney Transplant Referral [...] Recorded In the past 12 months has [employer], gas, oil, or water [employer] threatened to shut off services in your [...] [x] Financial Clearance is pending sent to associate financial planner [x] HLA testing to be ordered once [...] Dialysis Unit: (Not currently on dialysis) Outside mud jack nozzle worker: Dr. Curran, Yovanny iNcholson MD Routed to kidney referral intake team. documented in this encounter Plan of Treatment Upcoming Encounters Date Type Department Care Team (Late st Contact Info) Description 12/05/2024 8:01 AM EDT Hospital Encounter [facility] ENDOSCOPY [address] [place] [address] Chris Orosco MD [address] [place] [phone] 12/05/2024 8:01 AM EDT - 12/05/2024 8:31 AM EDT Surgery [facility] ENDOSCOPY [address] [place] [phone] Chris Orosco MD [address] [place] [phone] EGD Scheduled Procedures Name Priority Associated [...] documented as of this encounter Care Teams Deep Fat Cook Fry Relationship Specialty Start Date End Date Enedina Mcguire NP [address] [place] [address] PCP - General Internal Medicine 10/05/24 documented as of this encounter
--- OUTSIDE RECORDS SUMMARY | 2024-11-27 07:58 | XMS_ITS | Encounter Summary ---
Author Organization [facility] Address [address] [place] [address] Care Team Providers Care Wagon Driver Salesperson Name Role Phone Enedina Mcguire NP Primary Care Provider [phone] Source Comments This information has been disclosed [...] release of HIV test results or diagnoses. [id number] Health Encounter Details Date Type Department Care Team (Late st Contact Info) Description 10/07/2024 Chart Note [facility] Kidney Transplant at [address] [place] [phone] Anny Cote RN Received notice of [...] Recorded In the past 12 months has [employer], gas, oil, or water [employer] threatened to shut off services in [...] [facility] ENDOSCOPY [address] [place] [address] Chris Orosco MD [address] [place] [phone] 12/05/2024 8:01 AM EDT - 12/05/2024 8:31 AM EDT Surgery [facility] ENDOSCOPY [address] [place] [address] Chris Orosco MD [address] [place] [phone] EGD Scheduled Procedures Name Priority Associated Diagnoses [...] documented as of this encounter Care Teams Wagon Driver Salesperson Relationship Specialty Start Date End Date Enedina Mcguire NP [address] [place], [place] [phone] PCP - General Internal Medicine 10/05/24 documented as of this encounter
--- OUTSIDE RECORDS SUMMARY | 2024-11-27 07:58 | XMS_ITS | Encounter Summary ---
Author Organization [facility] Address [address] [place] [address] Care Team Providers Care Critical Power Technician Name Role Phone Enedina Mcguire NP Primary Care Provider [phone] Source Comments This information has been disclosed [...] release of HIV test results or diagnoses. [id number] Health Encounter Details Date Type Department Care Team (Late st Contact Info) Description 10/09/2024 Social Work [facility] Liver Transplant at [address] [address] Kaylin Willard MSW Social History Tobacco Use [...] Recorded In the past 12 months has [employer], gas, oil, or water [employer] threatened to shut off services in your [...] Liver Transplant Patient has been referred to [facility] for liver transplant evaluation. Patient was evaluated by transplant 7th grade social studies teacher on 09/25/2024 and it was determined that patient will need to complete 12 weeks of CD treatment. Patient is engaged in CD treatment with: [facility] [phone] SW met with patient and spouse at [...] during hospitalization pending mental status. NUBIA Barros, BUNK HOUSE WORKER documented in this encounter Plan of Treatment Upcoming Encounters Date Type Department Care Team (Late st Contact Info) Description 12/05/2024 8:01 AM EDT Hospital Encounter [facility] ENDOSCOPY [address] [place] [address] Chris Orosco MD [address] [place] [phone] 12/05/2024 8:01 AM EDT - 12/05/2024 8:31 AM EDT Surgery [facility] ENDOSCOPY [address] [place] [address] Chris Orosco MD [address] [place] [phone] EGD Scheduled Procedures Name Priority Associated Diagnoses [...] documented as of this encounter Care Teams Critical Power Technician Relationship Specialty Start Date End Date Enedina Mcguire NP [address] [place] [address] PCP - General Internal Medicine 10/05/24 documented as of this encounter
--- OUTSIDE RECORDS SUMMARY | 2024-11-27 07:58 | XMS_ITS | Encounter Summary ---
Author Organization [facility] Address [address] [place] [address] Care Team Providers Care Recruiting Administrator Name Role Phone Enedina Mcguire NP Primary Care Provider + [phone] Maureen Pantoja RN Unavailable Unavail able Source [...] release of HIV test results or diagnoses. [id number] Health Encounter Details Date Type Department Care Team (Late st Contact Info) Description 11/25/2024 Social Work [facility] Liver Transplant at [address] [place] [phone] Kaylin Willard MSW Social History Tobacco Use [...] Recorded In the past 12 months has [employer], gas, oil, or water [employer] threatened to shut off services in your [...] encounter Progress Notes * NUBIA Barros - 11/25/2024 3:18 PM EDT Social Work Outpatient Note- Liver Transplant Patient is status post SLK transplant on 10/26/2024. Patient completed PHQ-9 and MAGALYS-7 today. PHQ-9 Scores: 09/26/2024 11:00 AM 09/29/2024 11:00 AM 11/25/2024 3:00 PM PHQ Total Score PHQ-9 Total Score 16 17 3 GAD7 Scores: 09/26/2024 11:00 AM 09/29/2024 11:00 AM 11/25/2024 3:00 PM [id number] Score MAGALYS-7 Total Score 17 13 4 Scores are not concerning for depression/anxiety. No further SW needs identified. NUBIA Barros, WEIGHT YARDAGE CHECKER Transplant Counselor Marriage And Family documented in this encounter Plan of Treatment Upcoming Encounters Date Type Department Care Team (Late st Contact Info) Description 12/05/2024 8:01 AM EDT Hospital Encounter [facility] ENDOSCOPY [address] [place] [address] Chris Orosco MD [address] [place] [phone] 12/05/2024 8:01 AM EDT - 12/05/2024 8:31 AM EDT Surgery [facility] ENDOSCOPY [address] [place] [address] Chris Orosco MD [address] [place] [phone] EGD Scheduled Procedures Name Priority Associated Diagnoses [...] documented as of this encounter Care Teams Recruiting Administrator Relationship Specialty Start Date End Date Enedina Mcguire NP [address] [place] [address] PCP - General Internal Medicine 10/05/24 Maureen Pantoja, ЮЛИЯ Txp Post Coordinator Transplant Hepatology 10/28/24 documented as of this encounter
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
--- OUTSIDE RECORDS SUMMARY | 2024-11-27 07:58 | XMS_ITS | Encounter Summary ---
Author Organization [facility] Address [address] [place] [address] Care Team Providers Care Water Taxi Boat Mate Name Role Phone Unavailable Primary Care Provider [...] release of HIV test results or diagnoses. [id number] Health Encounter Details Date Type Department Care Team (Late st Contact Info) Description 10/01/2024 Telephone [facility] Liver Transplant at [address] [address] Armand [place], RN Social History Tobacco Use [...] Recorded In the past 12 months has [employer], gas, oil, or water company threatened to [...] [facility] ENDOSCOPY [address] [place] [address] Chris Orosco MD [address] [place] [phone] 12/05/2024 8:01 AM EDT - 12/05/2024 8:31 AM EDT Surgery [facility] ENDOSCOPY [address] [place] [address] Chris Orosco MD [address] [place] [phone] EGD Scheduled Procedures Name Priority Associated Diagnoses [...]
--- OUTSIDE RECORDS SUMMARY | 2024-11-27 07:58 | XMS_ITS | Encounter Summary ---
Author Organization [facility] Address [address] [place] [address] Care Team Providers Care Push Button Switch Assembler Name Role Phone Unavailable Primary Care [...] release of HIV test results or diagnoses. [id number] Health Encounter Details Date Type Department Care Team (Late st Contact Info) Description 09/30/2024 Social Work [facility] Liver Transplant at [address] [address] Kaylin Willard MSW Social History Tobacco Use [...] Recorded In the past 12 months has [employer], gas, oil, or water company threatened to [...] Liver Transplant Patient has been referred to [facility] for liver transplant evaluation. Patient was evaluated by transplant social sciences chair on 09/25/2024 and it was determined that patient will need to complete 12 weeks of CD treatment. Patient is engaged in CD treatment with: [facility] Mary Marie [phone] Patient has been attending an IOP program [...] treatment for him. Thank you NUBIA Barros, [facility] documented in this encounter Plan of Treatment Upcoming Encounters Date Type Department Care Team (Late st Contact Info) Description 12/05/2024 8:01 AM EDT Hospital Encounter [facility] ENDOSCOPY [address] [place] [address] Chris Orosco MD [address] [place] [phone] 12/05/2024 8:01 AM EDT - 12/05/2024 8:31 AM EDT Surgery [facility] ENDOSCOPY [address] [place] [address] Chris Orosco MD [address] [place] [phone] EGD Scheduled Procedures Name Priority Associated Diagnoses [...]
--- OUTSIDE RECORDS SUMMARY | 2024-11-27 07:58 | XMS_ITS | Encounter Summary ---
Author Organization [facility] Address [address] [place] [address] Care Team Providers Care Academic Affairs Dean Name Role Phone Enedina Mcguire NP Primary Care Provider [phone] Source Comments This information has been disclosed [...] release of HIV test results or diagnoses. [id number] Health Encounter Details Date Type Department Care Team (Late st Contact Info) Description 10/07/2024 Chart Note [facility] Liver Transplant at [address] [place] [phone] Alexandro Sams, RN Spoke with Julien Anderson [...] Recorded In the past 12 months has [employer], gas, oil, or water [employer] threatened to shut off services in your [...] Description 12/05/2024 8:01 AM EDT Hospital Encounter [facility] ENDOSCOPY [address] [place] [address] Chris Orosco MD [address] [place] [phone] 12/05/2024 8:01 AM EDT - 12/05/2024 8:31 AM EDT Surgery [facility] ENDOSCOPY [address] [place] [address] Chris Orosco MD [address] [place] [phone] EGD Scheduled Procedures Name Priority Associated [...] documented as of this encounter Care Teams Academic Affairs Dean Relationship Specialty Start Date End Date Enedina Mcguire NP [address] [place] [address] PCP - General Internal Medicine 10/05/24 documented as of this encounter
--- OUTSIDE RECORDS SUMMARY | 2024-11-27 07:59 | XMS_ITS | Encounter Summary ---
Author Organization [facility] Address [address] [place] [address] Care Team Providers Care Industrial Hygiene Engineer Name Role Phone Enedina Mcguire NP Primary Care Provider + [phone] Maureen Pantoja RN Unavailable Unavail able Source [...] release of HIV test results or diagnoses. [id number] Health Encounter Details Date Type Department Care Team (Late st Contact Info) Description 11/21/2024 Orders Only [facility] [address] [facility] [address] [place] [address] Vasile Gordillo MA Social History Tobacco Use Types Packs/Day Years Used Date Smoking Tobacco: Former Cigarettes Smokeless Tobacco: Current Alcohol Use Standard Drinks/Week Comments Yes 0 (1 standard drink = 0.6 oz pure alcohol) History of alcohol abuse, reports no use in 3 week- typically endorses use as 4 glasses of wine a days Utilities Answer Date Recorded In the past 12 months has [employer], gas, oil, or water [employer] threatened to shut off services in [...] 12/05/2024 8:01 AM EDT Hospital Encounter [facility] ENDOSCOPY [address] [place] [address] Chris Orosco MD [address] [place] [phone] 12/05/2024 8:01 AM EDT - 12/05/2024 8:31 AM EDT Surgery [facility] ENDOSCOPY [address] [place] [address] Chris Orosco MD [address] [place] [phone] EGD Scheduled Procedures Name Priority Associated Diagnoses [...] as of this encounter Care Teams Industrial Hygiene Engineer Relationship Specialty Start Date End Date Enedina Mcguire NP [address] [place] [address] PCP - General Internal Medicine 10/05/24 Maureen Pantoja, ЮЛИЯ Txp Post Coordinator Transplant Hepatology 10/28/24 documented as of this encounter
--- OUTSIDE RECORDS SUMMARY | 2024-11-27 07:59 | XMS_ITS | Encounter Summary ---
Author Organization [facility] Address [address] [place] [address] Care Team Providers Care Print Inspector Name Role Phone Enedina Mcguire NP Primary Care Provider + [phone] Maureen Pantoja RN Unavailable Unavail able Source [...] release of HIV test results or diagnoses. [id number] Reason for Visit * Reason Comments Results Encounter Details Date Type Department Care Team (Riky st Contact Info) Description 11/21/2024 Telephone [facility] Liver Transplant at [address] [address] Maureen Pantoja, RN Results Social [...] In the past 12 months has [employer], gas, oil, or water [employer] threatened to shut off services in your [...] Progress Notes * Maureen Pantoja RN - 11/24/2024 9:04 AM EDT FK 11/18: 04/17 FK 11/20: 11.5 Patient has Liver Txp clinic visit tomorrow and will be repeating labs at tomorrow. Will follow-up. * Maureen Pantoja RN - 11/21/2024 8:51 AM EDT Lab results from 11/18/24 & 11/20/24 received and reviewed. Renal panel stable. 11/20: Cr 1.00; BUN 36. LFTs trending up: 11/13/24 08:44 11/18/24 07:45 11/20/24 08:00 Alkaline Phosphatase 137 (E) 189 (E) 285 (E) AST (SGOT) 20 (E) 23 (E) 25 (E) ALT (SGPT) 29 (E) 41 (E) 60 (E) Bili, Total 0.8 (E) 0.6 (E) 0.5 (E) !: Data is abnormal (E): External lab result FK pending for both dates. Will follow-up. Current IS: FK 6 mg BID MMF 500 mg BID Prednisone 15 mg daily (decreased 11/15/24) documented in this encounter Miscellaneous Notes * Telephone Encounter - Maureen Pantoja RN - 11/21/2024 8:51 AM EDT ----- Message from RAFFI Rosario sent at 11/21/2024 8:49 AM EDT ----- FK: 11/18 & 11/20 Pending 11/20- elevated Alk Phos documented in this encounter Plan of Treatment Upcoming Encounters Date Type Department Care Team (Late st Contact Info) Description 12/05/2024 8:01 AM EDT Hospital Encounter [facility] ENDOSCOPY [address] [place] [address] Chris Orosco MD [address] [place] [phone] 12/05/2024 8:01 AM EDT - 12/05/2024 8:31 AM EDT Surgery [facility] ENDOSCOPY [address] [place] [address] Chris Orosco MD [address] [place] [phone] EGD Scheduled Procedures Name Priority Associated Diagnoses [...] documented as of this encounter Care Teams Print Inspector Relationship Specialty Start Date End Date Enedina Mcguire NP [address] [place] [address] PCP - General Internal Medicine 10/05/24 Maureen Pantoja, ЮЛИЯ Txp Post Coordinator Transplant Hepatology 10/28/24 documented as of this encounter
--- OUTSIDE RECORDS SUMMARY | 2024-11-27 07:59 | XMS_ITS | Encounter Summary ---
Author Organization [facility] Address [address] [place] [address] Care Team Providers Care Robot Operator Name Role Phone Enedina Mcguire NP Primary Care Provider + [phone] Maureen Pantoja RN Unavailable Unavail able Source [...] release of HIV test results or diagnoses. [id number] Health Encounter Details Date Type Department Care Team (Late st Contact Info) Description 11/24/2024 Orders Only [facility] Liver Transplant at [address] [place] [address] Maureen Pantoja, RN Social History Tobacco Use [...] Recorded In the past 12 months has [employer], gas, oil, or water [employer] threatened to shut off services in [...] [facility] ENDOSCOPY [address] [place] [address] Chris Orosco MD [address] [place] [phone] 12/05/2024 8:01 AM EDT - 12/05/2024 8:31 AM EDT Surgery [facility] ENDOSCOPY [address] [place] [address] Chris Orosco MD [address] [place] [phone] EGD Scheduled Procedures Name Priority Associated Diagnoses [...] documented as of this encounter Care Teams Robot Operator Relationship Specialty Start Date End Date Enedina Mcguire NP [address] [place] [address] PCP - General Internal Medicine 10/05/24 Maureen Pantoja, ЮЛИЯ Txp Post Coordinator Transplant Hepatology 10/28/24 documented as of this encounter
--- OUTSIDE RECORDS SUMMARY | 2024-11-27 08:00 | XMS_ITS | Encounter Summary ---
Author Organization [facility] Address [address] [place] [address] Care Team Providers Care Hydrogeology Professor Name Role Phone Enedina Mcguire NP Primary Care Provider + [phone] Maureen Pantoja RN Unavailable Unavail able Source [...] release of HIV test results or diagnoses. [id number] Health Encounter Details Date Type Department Care Team (Late st Contact Info) Description 11/21/2024 Chart Note [facility] Liver Transplant at [address] [place] [phone] Marlene Ro MA FK: 11/18 & 11/20 Pending Social History Tobacco Use Types Packs/Day Years Used Date Smoking Tobacco: Former Cigarettes Smokeless Tobacco: Current Alcohol Use Standard Drinks/Week Comments Yes 0 (1 standard drink = 0.6 oz pure alcohol) History of alcohol abuse, reports no use in 3 week- typically endorses use as 4 glasses of wine a days Utilities Answer Date Recorded In the past 12 months has [employer], gas, oil, or water [employer] threatened to shut off services in your [...] Progress Notes * Marlene Ro MA - 11/21/2024 8:28 AM EDT FK: 11/18 & 11/20 Pending documented in this encounter Plan of Treatment Upcoming Encounters Date Type Department Care Team (Late st Contact Info) Description 12/05/2024 8:01 AM EDT Hospital Encounter [facility] ENDOSCOPY [address] [place] [address] Chris Orosco MD [address] [place] [address] 12/05/2024 8:01 AM EDT - 12/05/2024 8:31 AM EDT Surgery [facility] ENDOSCOPY [address] [place] [address] Chris Orosco MD [address] [place] [phone] EGD Scheduled Procedures Name Priority Associated Diagnoses Date/Ti me EGD Cirrhosis of liver with ascites, unspecified hepatic cirrhosis type ([facility]) 12/05/2024 8:01 AM EDT documented as of this encounter Procedures Procedure Name Priority Date/Time Associated Diagnosis Comments HEPATIC FUNCTION PANEL Routine 11/20/2024 8:00 AM EDT TACROLIMUS LEVEL Routine 11/20/2024 8:00 AM EDT CBC AND DIFFERENTIAL Routine 11/20/2024 8:00 AM EDT RENAL FUNCTION PANEL W/O EGFR Routine 11/20/2024 8:00 AM EDT HEPATIC FUNCTION PANEL Routine 11/18/2024 7:45 AM EDT TACROLIMUS LEVEL Routine 11/18/2024 7:45 AM EDT CBC AND DIFFERENTIAL Routine 11/18/2024 7:45 AM EDT RENAL FUNCTION PANEL W/O EGFR Routine 11/18/2024 7:45 AM EDT documented in this encounter Results * Tacrolimus level (11/20/2024 8:00 AM EDT) Pathologist [facility] Tacrolimus Lvl 11.5 6 - 15 ng/mL Whole Blood Historical Provider MD LAB BLOOD ORDERABLES Denisse l Result * (ABNORMAL) Renal Function Panel w/o EGFR (11/20/2024 8:00 AM EDT) Pathologist [facility] Glucose 97 mg/dL BUN 36(A) 4 - [...] 5.0 g/dL Blood Narrative Resulting Agency Comment [facility] Historical Provider MD LAB BLOOD ORDERABLES Denisse l Result * (ABNORMAL) CBC and differential (11/20/2024 8:00 AM EDT) Pathologist [facility] Hemoglobin 10.5(A) 13.5 - 17.5 g/dL Hematocrit [...] 6.4 10^3/mL Blood Narrative Resulting Agency Comment [facility] Result [facility] MD LAB BLOOD ORDERABLES Denisse l Result * Hepatic Function Panel (11/20/2024 8:00 AM EDT) Bilirubin, Direct 0.4 Bilirubin, Indirect 0.1 Alkaline Phosphatase 285 U/L ALT 60 U/L AST 25 U/L Total Bilirubin 0.5 0.1 - 1.4 mg/dL Total Protein 6.4 6.4 - 8.2 g/dL Plasma Narrative Resulting Agency Comment [facility] Result [facility] Provider MD LAB BLOOD ORDERABLES Denisse l Result * Tacrolimus level (11/18/2024 7:45 AM EDT) Tacrolimus Lvl 12.5 6 - 15 ng/mL Whole Blood Result [facility] MD LAB BLOOD ORDERABLES Denisse l Result * (ABNORMAL) Hepatic Function Panel (11/18/2024 7:45 AM EDT) Bilirubin, Direct 0.5 Bilirubin, Indirect 0.1 Alkaline Phosphatase 189 U/L ALT 41 U/L AST 23 U/L Total Bilirubin 0.6 0.1 - 1.4 mg/dL Total Protein 6.1(A) 6.4 - 8.2 g/dL Plasma Narrative Resulting Agency Comment [facility] us Historical Provider MD LAB BLOOD ORDERABLES Denisse l Result * (ABNORMAL) Renal Function Panel w/o EGFR (11/18/2024 7:45 AM EDT) [facility] Glucose 100 mg/dL BUN 43(A) 4 - 21 mg/dL CO2 29(A) 13 - 22 mmol/L Creatinine 1.00 0.6 - 1.3 mg/dL Potassium 4.5 3.4 - 5.3 mmol/L Sodium 139 137 - 147 mmol/L Chloride 99 99 - 108 mmol/L Phosphorus 5.3(A) 2.5 - 4.9 mg/dL Calcium 9.8 8.7 - 10.7 mg/dL EGFR 82 mg/dL Albumin 4.1 3.5 - 5.0 g/dL Blood Narrative Resulting Agency Comment [facility] Result [facility] LAB BLOOD ORDERABLES Denisse l Result * (ABNORMAL) CBC and differential (11/18/2024 7:45 AM EDT) [facility] Hemoglobin 10.2(A) 13.5 - 17.5 g/dL Hematocrit 30.8(A) 41 - 53 % RDW 19.3(A) 11.5 - 14.5 % Lymphocytes Absolute 1.1 / L Monocytes Absolute 0.3 / L Eosinophils Absolute 0.0 / L Basophils Absolute 0.1 / L Neutrophils Relative 72.6 46 - 78 % Lymphocytes Relative 19.0 18 - 52 % Monocytes Relative 5.7 3 - 10 % Eosinophils Relative 0.5 0 - 6 % Basophils Relative 1.2 0 - 3 % Neutrophils Absolute 4.3 / L MCH 31.2 26.0 - 34.0 pg MCHC 33.1 30 - 37 g/dL MCV 94.2 82.0 - 108.0 fL Platelets 132 K/ L RBC 3.27(A) 4.50 - 5.90 10^6/ L WBC 6.0 10^3/mL Blood Narrative Resulting Agency Comment [facility] Result [facility] LAB BLOOD ORDERABLES Denisse l Result documented in this encounter Visit Diagnoses Not on filedocumented in this encounter Additional Health Concerns Infection Onset Date Last Indicated 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
--- OUTSIDE RECORDS SUMMARY | 2024-11-27 08:00 | XMS_ITS | Encounter Summary ---
Author Organization [facility] Address [address] [place] [address] Care Team Providers Care Inventory Coordinator Name Role Phone Enedina Mcguire NP Primary Care Provider + [phone] Maureen Pantoja RN Unavailable Unavail able Source [...] release of HIV test results or diagnoses. [id number] Health Encounter Details Date Type Department Care Team (Late st Contact Info) Description 11/20/2024 Refill [facility] Liver Transplant at [address] [place] [phone] Maureen Pantoja, RN Social History Tobacco Use [...] Recorded In the past 12 months has [employer], gas, oil, or water [employer] threatened to shut off services in your [...] Encounter [facility] ENDOSCOPY [address] [place] [address] Chris Orosco MD [address] [place] [phone] 12/05/2024 8:01 AM EDT - 12/05/2024 8:31 AM EDT Surgery [facility] ENDOSCOPY [address] [place] [phone] Chris Orosco MD [address] [place] [phone] EGD Scheduled Procedures Name Priority Associated Diagnoses [...] documented as of this encounter Care Teams Inventory Coordinator Relationship Specialty Start Date End Date Enedina Mcguire NP [address] [place] [address] PCP - General Internal Medicine 10/05/24 Maureen Pantoja, ЮЛИЯ Txp Post Coordinator Transplant Hepatology 10/28/24 documented as of this encounter
--- OUTSIDE RECORDS SUMMARY | 2024-11-27 08:00 | XMS_ITS | Encounter Summary ---
Author Organization [facility] Address [address] [place] [address] Care Team Providers Care Data Collection Technician Name Role Phone Enedina Mcguire NP Primary Care Provider + [phone] Maureen Pantoja RN Unavailable Unavail able Source [...] release of HIV test results or diagnoses. [id number] Health Encounter Details Date Type Department Care Team (Late st Contact Info) Description 11/20/2024 Refill [facility] Liver Transplant at [address] [place] [phone] Maureen Pantoja, RN Social History Tobacco Use [...] Recorded In the past 12 months has [employer], gas, oil, or water [employer] threatened to shut off services in [...] [facility] ENDOSCOPY [address] [place] [address] Chris Orosco MD [address] [place] [phone] 12/05/2024 8:01 AM EDT - 12/05/2024 8:31 AM EDT Surgery [facility] ENDOSCOPY [address] [place] [address] Chris Orosco MD [address] [place] [phone] EGD Scheduled Procedures Name Priority Associated Diagnoses [...] as of this encounter Care Teams Data Collection Technician Relationship Specialty Start Date End Date Enedina Mcguire NP [address] [place] [address] PCP - General Internal Medicine 10/05/24 Maureen Pantoja, ЮЛИЯ Txp Post Coordinator Transplant Hepatology 10/28/24 documented as of this encounter
--- OUTSIDE RECORDS SUMMARY | 2024-11-27 08:00 | XMS_ITS | Encounter Summary ---
Author Organization [facility] Address [address] [place] [address] Care Team Providers Care Automatic Seamer Name Role Phone Enedina Mcguire NP Primary Care Provider + [phone] Maureen Pantoja RN Unavailable Unavail able Source [...] release of HIV test results or diagnoses. [id number] Health Encounter Details Date Type Department Care Team (Late st Contact Info) Description 11/20/2024 [facility] Transplant at [address] [place] [phone] Maureen Pantoja, ЮЛИЯ S/P liver transplant (CMS-HCC) (Primary Dx); Immunosuppression ([facility]); Viral disease exposure; Alcohol use Social History Tobacco Use Types Packs/Day Years Used Date Smoking Tobacco: Former Cigarettes Smokeless Tobacco: Current Alcohol Use Standard Drinks/Week Comments Yes 0 (1 standard drink = 0.6 oz pure alcohol) History of alcohol abuse, reports no use in 3 week- typically endorses use as 4 glasses of wine a days Utilities Answer Date Recorded In the past 12 months has [employer], gas, oil, or water [employer] threatened to shut off services in [...] Description 12/05/2024 8:01 AM EDT Hospital Encounter [facility] ENDOSCOPY [address] [place] [address] Chris Orosco MD [address] [place] [address] 12/05/2024 8:01 AM EDT - 12/05/2024 8:31 AM EDT Surgery [facility] ENDOSCOPY [address] [place] [address] Chris Orosco MD [address] [place] [phone] EGD Pending Results Name Type Priority Associated Diagnoses Date /Time Hepatitis B Virus (HBV), PCR , Quant Lab Routine S/P liver transplant (CMS-HCC) Immunosuppression ([facility]-HCC) Viral disease exposure 11/25/2024 8:42 AM EDT Hepatitis C RNA, Quantitativ e PCR Lab Routine S/P liver transplant (CMS-HCC) Immunosuppression ([facility]-HCC) Viral disease exposure 11/25/2024 8:42 AM EDT Phosphatidylethanol Confirmation, B Lab Routine S/P liver transplant (CMS-HCC) Immunosuppression (CMS-HCC) Alcohol use 11/25/2024 8:42 AM EDT Scheduled Orders Name Type Priority Associated Diagnoses Orde r Schedule Hepatitis B Virus (HBV), PCR , Quant Lab Routine S/P liver transplant (CMS-HCC) Immunosuppression (CMS-HCC) Viral disease exposure Expected: 11/25/2024, Expires: 06/04/2025 Hepatitis C RNA, Quantitativ e PCR Lab Routine S/P liver transplant (CMS-HCC) Immunosuppression (CMS-HCC) Viral disease exposure Expected: 11/25/2024, Expires: 06/04/2025 Phosphatidylethanol Confirmation, B Lab Routine S/P liver transplant (CMS-HCC) Immunosuppression (CMS-HCC) Alcohol use Expected: 11/25/2024, Expires: 06/04/2025 Scheduled Procedures Name Priority Associated Diagnoses Date/Ti me EGD Cirrhosis of liver with ascites, unspecified hepatic cirrhosis type (CMS-HCC) 12/05/2024 8:01 AM EDT documented as of this encounter Results * HIV-1 RNA, Quantitative, PCR (11/25/2024 8:42 AM EDT) HIV 1 Copies Not Detected copies/mL 11/26/2024 10:57 AM EDT [facility] Comment:Test methodology for HIV-1 RNA quantification is an FDA-approved nucleic acid amplification assay. The Lower Limit of Quantitation (LLoQ) is 20 copies/mL. The linear range is 20- to 10,000,000 copies/mL. The Limit of Detection (LoD) is 13.2 copies/mL. The reference range is Not Detected. HIV [id number] See Note [id number] /mL 11/26/2024 10:57 AM EDT [facility] Comment:HIV-1 RNA not detect ed. Plasma 11/25/2024 8:42 AM EDT 11/25/2024 10:59 AM EDT Narrative [facility] - 11/26/2024 10:57 AM EDT One time lab order to be collected with next set of standing liver transplant labs. UNOS requirement. Please fax all results to [phone]. Call critical results to [phone]. 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
--- OUTSIDE RECORDS SUMMARY | 2024-11-27 08:00 | XMS_ITS | Data Portability ---
Author Organization [facility],, Main Office Address [address] [place] [address] Assessment No assessment recorded. Plan of Treatment [...] Available No t Available BD Regular Bevel [place] 18 gauge x 1 active Not Available [...] Updated DateTime 3 193.04 cm 29.1 kg/m2 441165. 58 g 112 /min 97.7 [degF] 141/84 mm[Hg] [facility], 3 13:14:11 Date Recorded Body height Body mass index (BMI) Body weight Heart rate Body temperature Systolic And Diastolic Provider Name and Address Organization Details Last Updated DateTime 4 193.04 cm 30.4 kg/m2 378632. 09 g 92 /min 97.5 [degF] 176/104 mm[Hg] [facility], 4 14:06:31 Date Recorded Body temperature Provider Name a nd Address Organization Details Last Updated DateTime 12/27/2020 99.5 [degF] Cuca Strickland [facility], 12/27/2020 13:41:33 Date Recorded Body weight Heart rate Body temperature Systolic And Diastolic Provider Name and Address Organization Details Last Updated DateTime 04/03/2022 075112.95 g 93 /min 97.6 [degF] 114/83 mm[Hg] Ashley Wallace [facility], 04/03/2022 14:42:57 Social History None recorded. Functional Status None recorded. Mental Status None recorded. Family History Nothing Reported. Medical History No medical history recorded. Past Encounters Encounter ID Performer Location Encounter Start Date Encounter Closed Date Diagnosis/Indication Diagnosis SNOMED-CT Code Diagnosis ICD10 Code Diagnosis Note [id number] Yung Felipe DO Main Office [address] [place] [address] 12/27/2020 13:24:24 12/27/2020 14:00:19 Evaluation of semen fertility 606727023 N46.9 semen analysis [id number] Yung Felipe DO Main Office [address] [facility] [place] [address] 07/04/2021 14:47:56 07/04/2021 16:00:05 Evaluation of semen fertility 766958186 N46.9 semen analysis [id number] Yung Felipe DO Main Office [address] [place] [address] 05/31/2022 13:04:00 05/31/2022 13:50:01 Evaluation of semen fertility 022628294 N46.9 semen analysis + viability: analysis by Dr. Ruiz [id number] Yung Felipe DO Main Office [address] [place] [address] 10/22/2023 13:58:48 10/22/2023 14:31:18 Evaluation of semen fertility 733287207 N46.9 semen analysis + viability: analysis by [...] analysis Yung Felipe DO [address], [place], [address], [facility], 08/06/2021 23:24:22 05/31/2022 text/html semen analysis + viability Loraine L. [address], [place], [address], [facility], 05/31/2022 13:57:30 10/22/2023 text/html semen analysis [address], [place], [address], [facility], 10/22/2023 16:29:00
--- OUTSIDE RECORDS SUMMARY | 2024-11-27 08:02 | XMS_ITS | Encounter Summary ---
Author Organization [facility] Address [address] [place] [address] Care Team Providers Care Nursing Administrator Name Role Phone Enedina Mcguire NP Primary Care Provider [phone] Source Comments This information has been disclosed [...] release of HIV test results or diagnoses. [id number] Encounter Details Date Type Department Care [...] Recorded In the past 12 months has [employer], oil, or water [employer] threatened to shut off services in your [...] [facility] [address] [place] [address] Chris Orosco MD [address] [place] [phone] 12/05/2024 8:01 AM EDT - 12/05/2024 8:31 AM EDT Surgery [facility] ENDOSCOPY [address] [place] [address] Chris Orosco MD [address] [place] [address] EGD Scheduled Procedures Name Priority Associated Diagnoses [...] documented as of this encounter Care Teams Nursing Administrator Relationship Specialty Start Date End Date Enedina Mcguire NP [address] [place] [address] PCP - General Internal Medicine 10/05/24 documented as of this encounter
--- OUTSIDE RECORDS SUMMARY | 2024-11-27 08:02 | XMS_ITS | Encounter Summary ---
Author Organization [facility] Address [address] [place] [address] Care Team Providers Care Lab Support Tech Name Role Phone Enedina Mcguire NP Primary Care Provider [phone] Source Comments This information has been disclosed [...] release of HIV test results or diagnoses. [id number] Encounter Details Date Type Department Care Team (Late st Contact Info) Description 10/26/2024 Chart Note [facility] Liver Transplant at [address] [place] [phone] Geri Vasquez, ЮЛИЯ Social History Tobacco Use [...] Recorded In the past 12 months has [employer], gas, oil, or water [employer] threatened to shut off services in your [...] Description 12/05/2024 8:01 AM EDT Hospital Encounter [facility] ENDOSCOPY [address] [place] [address] Chris Orosco MD [address] [place] [phone] 12/05/2024 8:01 AM EDT - 12/05/2024 8:31 AM EDT Surgery [facility] ENDOSCOPY [address] [place] [address] Chris Orosco MD [address] [place] [address] EGD Scheduled Procedures Name Priority Associated Diagnoses [...] documented as of this encounter Care Teams Lab Support Tech Relationship Specialty Start Date End Date Enedina Mcguire NP [address] [place] [address] PCP - General Internal Medicine 10/05/24 documented as of this encounter
--- OUTSIDE RECORDS SUMMARY | 2024-11-27 08:02 | XMS_ITS | Encounter Summary ---
Author Organization [facility] Address [address] [place] [address] Care Team Providers Care Transition Assistant Name Role Phone Enedina Mcguire NP Primary Care Provider [phone] Source Comments This information has been disclosed [...] release of HIV test results or diagnoses. [id number] Reason for Visit * Reason Comments DDLT patient instructions Encounter Details Date Type Department Care Team ([facility] st Contact Info) Description 10/25/2024 Telephone [facility] Liver Transplant at [address] [address] Krissy Crowell RN DDLT patient [...] Recorded In the past 12 months has [employer], gas, oil, or water [employer] threatened to shut off services in your [...] Patient will arrive to PACU, ETA is [phone]. Nursing Terry Cloth Cutter Hand (Humaira), PACU (Emily), SICU (Lizeth), OR (Omar), txp sgy resident (Aysha), and admitting (Loraine) called with updates on patient arrival. documented in this encounter Plan of Treatment Upcoming Encounters Date Type Department Care Team (Late st Contact Info) Description 12/05/2024 8:01 AM EDT Hospital Encounter [facility] ENDOSCOPY [address] [place] [address] Chris Orosco MD [address] [place] [address] 12/05/2024 8:01 AM EDT - 12/05/2024 8:31 AM EDT Surgery [facility] ENDOSCOPY [address] [place] [address] Chris Orosco MD [address] [place] [phone] EGD Scheduled Procedures Name Priority Associated Diagnoses Date/Ti me EGD Cirrhosis of liver with ascites, unspecified hepatic cirrhosis type ([facility]) 12/05/2024 8:01 AM EDT documented as of this encounter Visit Diagnoses Not on filedocumented in this encounter Additional Health Concerns Infection Onset Date Last Indicated Resolved Time C. difficile 09/09/2024 09/09/2024 10/27/2024 8:30 AM EDT Assessment Noted Time PHQ-9 Depression Total Score: 17 05/2 025 11:00 AM EDT documented as of this encounter Care Teams Transition Assistant Relationship Specialty Start Date End Date Enedina Mcguire NP [address] [place] [address] PCP - General Internal Medicine 10/05/24 documented as of this encounter
--- OUTSIDE RECORDS SUMMARY | 2024-11-27 08:04 | XMS_ITS | Encounter Summary ---
Author Organization [facility] Address [address] [place] [address] Care Team Providers Care Logistics Research Engineer Name Role Phone Enedina Mcguire NP Primary Care Provider [phone] Source Comments This information has been disclosed [...] release of HIV test results or diagnoses. [id number] Encounter Details Date Type Department Care Team (Late st Contact Info) Description 10/22/2024 Telephone [facility] Liver Transplant at [address] [address] Mary Butler, RN Social History Tobacco Use [...] Recorded In the past 12 months has [employer], gas, oil, or water [employer] threatened to shut off services in your [...] will need ~[address] [facility]. documented in this encounter Plan of Treatment Upcoming Encounters Date Type Department Care Team (Late st Contact Info) Description 12/05/2024 8:01 AM EDT Hospital Encounter [facility] ENDOSCOPY [address] [place] [address] Chris Orosco MD [address] [place] [phone] 12/05/2024 8:01 AM EDT - 12/05/2024 8:31 AM EDT Surgery [facility] ENDOSCOPY [address] [place] [address] Chris Orosco MD [address] [place] [phone] EGD Scheduled Procedures Name Priority Associated Diagnoses [...] as of this encounter Care Teams Logistics Research Engineer Relationship Specialty Start Date End Date Enedina Mcguire NP [address] [place] [address] PCP - General Internal Medicine 10/05/24 documented as of this encounter
--- OUTSIDE RECORDS SUMMARY | 2024-11-27 08:04 | XMS_ITS | Encounter Summary ---
Author Organization [facility] Address [facility] [place][note 2]0 [place] [address] Care Team Providers Care Copywriter Name Role Phone Unavailable Primary Care Provider [...] release of HIV test results or diagnoses. [id number] Reason for Visit * Reason Comments After Hours Call Encounter Details Date Type Department Care Team (Late st Contact Info) Description 09/02/2024 Telephone [facility] PATIENT SERVICES [address] [place] [address] Unknown, Attending Provider After Hours [...] Recorded In the past 12 months has [employer], gas, oil, or water [employer] threatened to shut off services in your [...] to Patient and Callback: ALICIA ([facility]) [phone] Patient of: DR. LINARES Nature of Call: CRITICAL LAB RESULT Chief Ultrasound Technologist Provider Contacted: DR. VINES Time and Method of Contact:PAGED @ 8:54PM Advise Caller: If provider does not call back within 30 minutes, please call us back. ROUTE TELEPHONE NOTE - Follow Qgenda and/or Route Directly to Provider. COPY this note into [facility] chat. documented in this encounter Plan of Treatment Upcoming Encounters Date Type Department Care Team (Late st Contact Info) Description 12/05/2024 8:01 AM EDT Hospital Encounter [facility] ENDOSCOPY [address] [place] [address] Chris Orosco MD [address] [place] [phone] 12/05/2024 8:01 AM EDT - 12/05/2024 8:31 AM EDT Surgery [facility] ENDOSCOPY [address] [place] [address] Chris Orosco MD [address] [place] [address] EGD Scheduled Procedures Name Priority Associated Diagnoses Date/Ti ma EGD Cirrhosis of liver with ascites, unspecified [...]
--- OUTSIDE RECORDS SUMMARY | 2024-11-27 08:04 | XMS_ITS | Encounter Summary ---
Author Organization [facility] Address [address] [place] [address] Care Team Providers Care Early Interventionist Name Role Phone Enedina Mcguire NP Primary Care Provider [phone] Source Comments This information has been disclosed [...] release of HIV test results or diagnoses. [id number] Encounter Details Date Type Department Care Team (Late st Contact Info) Description 10/22/2024 Chart Note [facility] Liver Transplant at [address] [place] [phone] Faraz Carballo RN 2nd ABO verified for [...] In the past 12 months has e [employer], gas, oil, or water [employer] threatened to shut off services in your [...] Hospital Encounter [facility] ENDOSCOPY [address] [place] [address] Chris Orosco MD [address] [place] [phone] 12/05/2024 8:01 AM EDT - 12/05/2024 8:31 AM EDT Surgery [facility] ENDOSCOPY [address] [place] [address] Chris Oorsco MD [address] [place] [phone] EGD Scheduled Procedures Name Priority Associated Diagnoses [...] as of this encounter Care Teams Early Interventionist Relationship Specialty Start Date End Date Enedina Mcguire NP [address] [place] [address] PCP - General Internal Medicine 10/05/24 documented as of this encounter
--- OUTSIDE RECORDS SUMMARY | 2024-11-27 08:04 | XMS_ITS | Encounter Summary ---
Author Organization [facility] Address [facility] [place] [address] Care Team Providers Care Cell Cleaner Name Role Phone Enedina Mcguire NP Primary Care Provider [phone] Source Comments This information has been disclosed [...] release of HIV test results or diagnoses. [id number] Health Encounter Details Date Type Department Care Team (Late st Contact Info) Description 10/22/2024 Orders Only [facility] [address] [place] [address] Abdulkadir Gaspar MD 3130 [facility] 3200 [facility] [place] [address] Social History Tobacco Use Types Packs/Day Years Used Date Smoking Tobacco: Former Cigarettes Smokeless Tobacco: Current Alcohol Use Standard Drinks/Week Comments Yes 0 (1 standard drink = 0.6 oz pure alcohol) History of alcohol abuse, reports no use in 3 week- typically endorses use as 4 glasses of wine a days Utilities Answer Date Recorded In the past 12 months has [employer], gas, oil, or water company threatened to [...] Encounter [facility] ENDOSCOPY [address] [place] [address] Chris Orosco MD [address] [place] [address] 12/05/2024 8:01 AM EDT - 12/05/2024 8:31 AM EDT Surgery [facility] ENDOSCOPY [address] [place] [address] Chris Orosco MD [address] [place] [address] EGD Scheduled Procedures Name Priority Associated Diagnoses [...] 10/22/2024 12:3 2 PM EDT us Abdulkadir Hubert ABDULLAHI LAB BLOOD ORDERABLES Final Resul t [facility] [address] [facility] [place] [address] documented in this encounter Visit Diagnoses Not on filedocumented in this encounter Additional Health Concerns Infection Onset Date Last Indicated Resolved Time C. difficile 09/09/2024 09/09/2024 10/27/2024 8:30 AM EDT Assessment Noted Time PHQ-9 Depression Total Score: 17 025 11:00 AM EDT documented as of this encounter Care Teams Cell Cleaner Relationship Specialty Start Date End Date Enedina Mcguire NP [address] [place], [place] [phone] PCP - General Internal Medicine 10/05/24 documented as of this encounter
--- OUTSIDE RECORDS SUMMARY | 2024-11-27 08:04 | XMS_ITS | Encounter Summary ---
Author Organization [facility] Address [address] [place] [address] Care Team Providers Care Sock Lining Stitcher Name Role Phone Enedina Mcguire NP Primary Care Provider + [phone] Maureen Pantoja RN Unavailable Unavail able Source [...] release of HIV test results or diagnoses. [id number] Reason for Visit * Reason Comments Results Encounter Details Date Type Department Care Team (Riky st Contact Info) Description 11/26/2024 Telephone [facility] Liver Transplant at [address] [address] Maureen Pantoja, RN Results Social [...] In the past 12 months has e [employer], gas, oil, or water [employer] threatened to shut off services in your [...] Progress Notes * Maureen Pantoja RN - 11/26/2024 7:17 AM EDT Lab results from 11/25/24 reviewed. Cr 1.59 (from 1.00); BUN 43 (from 36). Patient was instructed by Liver Txp Team yesterday to stop torsemide. LFTs stable. Alk phos 198 (from 285), AST/ALT / (from 25/60). FK 11.6 30-day acute risk labs and PEth pending. Will follow-up. Current IS: FK 5 mg in AM and 6 mg in PM (decreased after these labs, though fluc also stopped) MMF 500 mg BID Prednisone 15 mg daily (instructed to decrease to 10 mg on 12/05/24) Will route to Liver Txp Provider and Kidney Txp Team for further review and recommendations. documented in this encounter Plan of Treatment Upcoming Encounters Date Type Department Care Team (Late st Contact Info) Description 12/05/2024 8:01 AM EDT Hospital Encounter [facility] ENDOSCOPY [address] [place] [address] Chris Orosco MD [address] [place] [phone] 12/05/2024 8:01 AM EDT - 12/05/2024 8:31 AM EDT Surgery [facility] ENDOSCOPY [address] [place] [address] Chris Orosco MD [address] [place] [phone] EGD Scheduled Procedures Name Priority Associated Diagnoses [...] as of this encounter Care Teams Sock Lining Stitcher Relationship Specialty Start Date End Date Enedina Mcguire NP [address] [place] [address] PCP - General Internal Medicine 10/05/24 Maureen Pantoja, ЮЛИЯ Txp Post Coordinator Transplant Hepatology 10/28/24 documented as of this encounter
--- OUTSIDE RECORDS SUMMARY | 2024-11-27 08:04 | XMS_ITS | Encounter Summary ---
Author Organization [facility] Address [address] [place] [address] Care Team Providers Care Cook Morning Name Role Phone Enedina Mcguire NP Primary Care Provider [phone] Source Comments This information has been disclosed [...] release of HIV test results or diagnoses. [id number] Health Encounter Details Date Type Department Care Team (Late st Contact Info) Description 10/22/2024 Telephone [facility] Psychiatry Transplant at [facility] 3130 [facility] [address] [place] [address] Lizeth Warren PsyD [address] [facility] [address] [place] [address] Social History Tobacco Use Types Packs/Day Years Used Date Smoking Tobacco: Former Cigarettes Smokeless Tobacco: Current Alcohol Use Standard Drinks/Week Comments Yes 0 (1 standard drink = 0.6 oz pure alcohol) History of alcohol abuse, reports no use in 3 week- typically endorses use as 4 glasses of wine a days Utilities Answer Date Recorded In the past 12 months has [employer], gas, oil, or water [employer] threatened to shut off services in your [...] appts. Went to voicemail. Left vm referencing Buz message with availability times listed. Encouraged patient to response with preferred slot. documented in this encounter Plan of Treatment Upcoming Encounters Date Type Department Care Team (Late st Contact Info) Description 12/05/2024 8:01 AM EDT Hospital Encounter [facility] ENDOSCOPY [address] [place] [address] Chris Orosco MD [address] [place] [phone] 12/05/2024 8:01 AM EDT - 12/05/2024 8:31 AM EDT Surgery [facility] ENDOSCOPY [address] [place] [address] Chris Orosco MD [address] [place] [phone] EGD Scheduled Procedures Name Priority Associated Diagnoses Date/Ti me EGD Cirrhosis of liver with ascites, unspecified hepatic cirrhosis type ([facility]) 12/05/2024 8:01 AM EDT documented as of this encounter Visit Diagnoses Not on filedocumented in this encounter Additional Health Concerns Infection Onset Date Last Indicated Resolved Time C. difficile 09/09/2024 09/09/2024 10/27/2024 8:30 AM EDT Assessment Noted Time PHQ-9 Depression Total Score: 17 05//2 025 11:00 AM EDT documented as of this encounter Care Teams Cook Morning Relationship Specialty Start Date End Date Enedina Mcguire NP [address] [place] [address] PCP - General Internal Medicine 10/05/24 documented as of this encounter
--- OUTSIDE RECORDS SUMMARY | 2024-11-27 08:04 | XMS_ITS | Encounter Summary ---
Author Organization [facility] Address [facility] [place] [address] Care Team Providers Care Application Chemist Name Role Phone Enedina Mcguire NP Primary Care Provider [phone] Source Comments This information has been disclosed [...] release of HIV test results or diagnoses. [id number] Health Encounter Details Date Type Department Care Team (Late st Contact Info) Description 10/27/2024 Orders Only [facility] [address] [place] [address] Abdulkadir Gaspar MD 3130 [facility] 3200 [place] [address] Social History Tobacco Use Types [...] Hospital Encounter [facility] ENDOSCOPY [address] [place] [address] Chris Orosco MD [address] [place] [address] 12/05/2024 8:01 AM EDT - 12/05/2024 8:31 AM EDT Surgery [facility] ENDOSCOPY [address] [place] [address] Chris Orosco MD [address] [place] [address] EGD Scheduled Procedures Name Priority Associated Diagnoses [...] AM EDT) 10/27/2024 4:1 6 AM EDT us Abdulkadir Gaspar MD LAB BLOOD ORDERABLES Final Resul t [facility] [address] [facility] [place] [address] documented in this encounter Visit Diagnoses Not on filedocumented in this encounter Additional Health Concerns Infection Onset Date Last Indicated Resolved Time C. difficile 09/09/2024 09/09/2024 10/27/2024 8:30 AM EDT Assessment Noted Time PHQ-9 Depression Total Score: 17 05/19/2 025 11:00 AM EDT documented as of this encounter Care Teams Application Chemist Relationship Specialty Start Date End Date Enedina Mcguire NP [address] [place], [place] [id number] PCP - General Internal Medicine 10/05/24 documented as of this encounter
--- OUTSIDE RECORDS SUMMARY | 2024-11-27 08:04 | XMS_ITS | Encounter Summary ---
Author Organization [facility] Address [address] [place] [address] Care Team Providers Care Fellmongery Worker Name Role Phone Enedina Mcguire NP Primary Care Provider [phone] Source Comments This information has been disclosed [...] release of HIV test results or diagnoses. [id number] Health Encounter Details Date Type Department Care Team (Late st Contact Info) Description 10/22/2024 Chart Note [facility] [address] [place] [address] Aaron Gonzalez MD [address] [phone] Candidacy for a simultaneous liver-kidney transplant Social [...] Recorded In the past 12 months has [employer], gas, oil, or water [employer] threatened to shut off services in your [...] (ESRD) patient in a hospital based, [facility] based, or home setting. -At [...] I have discussed this plan with the community coordinator for high school and the liver transplant team. documented in this encounter Plan of Treatment Upcoming Encounters Date Type Department Care Team (Late st Contact Info) Description 12/05/2024 8:01 AM EDT Hospital Encounter [facility] ENDOSCOPY [address] [place] [address] Chris Orosco MD [address] [place] [phone] 12/05/2024 8:01 AM EDT - 12/05/2024 8:31 AM EDT Surgery [facility] ENDOSCOPY [address] [place] [address] Chris Orosco MD [address] [place] [phone] EGD Scheduled Procedures Name Priority Associated Diagnoses [...] documented as of this encounter Care Teams Fellmongery Worker Relationship Specialty Start Date End Date Enedina Mcguire NP [address] [place] [address] PCP - General Internal Medicine 10/05/24 documented as of this encounter
--- OUTSIDE RECORDS SUMMARY | 2024-11-27 08:04 | XMS_ITS | Encounter Summary ---
Author Organization [facility] Address [address] [place] [address] Care Team Providers Care Certified Energy Manager Name Role Phone Enedina Mcguire NP Primary Care Provider + [phone] Maureen Pantoja RN Unavailable Unavail able Source [...] release of HIV test results or diagnoses. [id number] Reason for Visit * Reason Comments Results Encounter Details Date Type Department Care Team (Riky st Contact Info) Description 11/18/2024 Telephone [facility] Liver Transplant at [address] [address] Maureen Pantoja, RN Results Social [...] In the past 12 months has e [employer], gas, oil, or water [employer] threatened to shut off services in your [...] 12/05/2024 8:01 AM EDT Hospital Encounter [facility] ENDOSCOPY [address] [place] [address] Chris Orosco MD [address] [place] [phone] 12/05/2024 8:01 AM EDT - 12/05/2024 8:31 AM EDT Surgery [facility] ENDOSCOPY [address] [place] [address] Chris Orosco MD [address] [place] [phone] EGD Scheduled Procedures Name Priority Associated Diagnoses Date/Ti id EGD Cirrhosis of liver with ascites, unspecified [...] documented as of this encounter Care Teams Certified Energy Manager Relationship Specialty Start Date End Date Enedina Mcguire NP [address] [place] [address] PCP - General Internal Medicine 10/05/24 Maureen Pantoja, RN Txp Post Coordinator Transplant Hepatology 10/28/24 documented as of this encounter
--- OUTSIDE RECORDS SUMMARY | 2024-11-27 08:04 | XMS_ITS | Encounter Summary ---
Author Organization [facility] Address [address] [place] [address] Care Team Providers Care Senior Datastage Developer Name Role Phone Enedina Mcguire NP Primary Care Provider [phone] Source Comments This information has been disclosed [...] release of HIV test results or diagnoses. [id number] Encounter Details Date Type Department Care Team (Late st Contact Info) Description 10/22/2024 Chart Note [facility] Kidney Transplant at [address] [place] [address] Gladis Rainey RN Received most recent [...] Recorded In the past 12 months has [employer], gas, oil, or water [employer] threatened to shut off services in your [...] Rainey RN - 10/22/2024 1:51 PM EDT [facility] VERIFICATION CHECK FORM Julien Anderson [id number] [address]s or answer yes or no next to each item to note you have verified the information for listing on this patient in [facility]. First Name nh Last Name nv Middle Initial N/a Date of nv SS# nv Center ID# (MRN) nv ABO x 2 nv / nv I have verified the two (2) blood [...] registration as additional organ Listing date in [facility] match nh Listing date notification letter match [facility] Updated consent on file [x] Yes [] [...] Team documentation Nephrology within the last year nv floorworker lasting within the last year nv Dietitian within the last year nv Finance within the last year nv Pharmacy within the last year nv Initial surgery assessment nv RN coordinator documentation nh * Terra Pyle RN - 10/22/2024 1:51 PM EDT OS VERIFICATION CHECK FORM Julien Anderson [id number] [address] or answer yes or [...] checked on liver registration Listing date in [facility] match MW Listing date notification letter match [facility] Updated consent on file [x] [...] documentation Nephrology within the last year MW floorworker lasting within the last year MW Dietitian within the last year MW Finance within the last year MW Pharmacy within the last year MW Initial surgery assessment RN coordinator documentation MW documented in this encounter Plan of Treatment Upcoming Encounters Date Type Department Care Team (Late st Contact Info) Description 12/05/2024 8:01 AM EDT Hospital Encounter [facility] ENDOSCOPY [address] [place] [address] Chris Orosco MD [address] [place] [phone] 12/05/2024 8:01 AM EDT - 12/05/2024 8:31 AM EDT Surgery [facility] ENDOSCOPY [address] [place] [address] Chris Orosco MD [address] [place] [phone] EGD Scheduled Procedures Name Priority Associated Diagnoses [...] as of this encounter Care Teams Senior Datastage Developer Relationship Specialty Start Date End Date Enedina Mcguire NP [address] [place] [address] PCP - General Internal Medicine 10/05/24 documented as of this encounter
--- OUTSIDE RECORDS SUMMARY | 2024-11-27 08:04 | XMS_ITS | Encounter Summary ---
Author Organization [facility] Address [address] [place] [address] Care Team Providers Care Applications Consultant Name Role Phone Enedina Mcguire NP Primary Care Provider + [phone] Maureen Pantoja RN Unavailable Unavail able Source [...] release of HIV test results or diagnoses. [id number] Health Encounter Details Date Type Department Care Team (Late st Contact Info) Description 11/18/2024 Chart Note [facility] Liver Transplant at [address] [place] [phone] Marlene Ro MA Social History Tobacco Use [...] Recorded In the past 12 months has [employer], gas, oil, or water [employer] threatened to shut off services in your [...] Description 12/05/2024 8:01 AM EDT Hospital Encounter [facility] ENDOSCOPY [address] [place] [address] Chris Orosco MD [address] [place] [phone] 12/05/2024 8:01 AM EDT - 12/05/2024 8:31 AM EDT Surgery [facility] ENDOSCOPY [address] [place] [address] Chris Orosco MD [address] [place] [phone] EGD Scheduled Procedures Name Priority Associated Diagnoses [...] 5.0 g/dL Blood Narrative Resulting Agency Comment [facility] Result [facility] MD LAB BLOOD ORDERABLES Denisse l Result * Tacrolimus level (11/13/2024 8:44 AM EDT) Pathologist [facility] Tacrolimus Lvl 10.9 6 - 15 ng/mL Whole Blood Narrative Resulting Agency Comment [facility] Result [facility] MD LAB BLOOD ORDERABLES Denisse l Result * (ABNORMAL) CBC and differential (11/13/2024 8:44 AM EDT) Pathologist [facility] Hemoglobin 9.8(A) 13.5 - 17.5 [...] 5.7 10^3/mL Blood Narrative Resulting Agency Comment [facility] Result [facility] MD LAB BLOOD ORDERABLES Denisse l Result * (ABNORMAL) Hepatic Function Panel (11/13/2024 8:44 AM EDT) Pathologist [facility] Bilirubin, Direct 0.6 Bilirubin, Indirect 0.2 Alkaline Phosphatase 137 U/L ALT 29 U/L AST 20 U/L Total Bilirubin 0.8 0.1 - 1.4 mg/dL Total Protein 5.8(A) 6.4 - 8.2 g/dL Plasma Narrative Resulting Agency Comment [facility] us Historical Provider LAB BLOOD ORDERABLES Denisse l Result documented in this encounter Visit Diagnoses Not on filedocumented in this encounter Additional Health Concerns Infection Onset Date Last Indicated Resolved Time 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
--- OUTSIDE RECORDS SUMMARY | 2024-11-27 08:04 | XMS_ITS | Encounter Summary ---
Author Organization [facility] Address [address] [place] [address] Care Team Providers Care Snowsport Instructor Name Role Phone Enedina Mcguire NP Primary Care Provider [phone] Source Comments This information has been disclosed [...] release of HIV test results or diagnoses. [id number] Encounter Details Date Type Department Care Team (Late st Contact Info) Description 10/22/2024 Status Update [facility] Kidney Transplant at [facility] [address] [facility] [address] [place] [address] Aaron Gonzalez MD [address] [place] [facility] [place] [address] Social History Tobacco Use Types Packs/Day Years Used Date Smoking Tobacco: Former Cigarettes Smokeless Tobacco: Current Alcohol Use Standard Drinks/Week Comments Yes 0 (1 standard drink = 0.6 oz pure alcohol) History of alcohol abuse, reports no use in 3 week- typically endorses use as 4 glasses of wine a days Utilities Answer Date Recorded In the past 12 months has new test company, gas, oil, or water [employer] threatened to shut off services in your [...] Hospital Encounter [facility] ENDOSCOPY [address] [place] [address] Chris Orosco MD [address] [place] [phone] 12/05/2024 8:01 AM EDT - 12/05/2024 8:31 AM EDT Surgery [facility] ENDOSCOPY [address] [facility] [place] [address] Chris Orosco MD [address] [place] [phone] EGD Scheduled Procedures Name Priority Associated Diagnoses [...] documented as of this encounter Care Teams Snowsport Instructor Relationship Specialty Start Date End Date Enedina Mcguire NP [address] [place] [address] PCP - General Internal Medicine 10/05/24 documented as of this encounter
--- OUTSIDE RECORDS SUMMARY | 2024-11-27 08:04 | XMS_ITS | Encounter Summary ---
Author Organization [facility] Address [address] [place] [address] Care Team Providers Care Cold Working Supervisor Name Role Phone Enedina Mcguire NP Primary Care Provider [phone] Source Comments This information has been disclosed [...] release of HIV test results or diagnoses. [id number] Encounter Details Date Type Department Care Team (Late st Contact Info) Description 10/26/2024 Chart Note [facility] Kidney Transplant at [address] [place] [phone] Geri Vasquez, ЮЛИЯ Social History Tobacco Use [...] Recorded In the past 12 months has [employer], gas, oil, or water [employer] threatened to shut off services in your [...] 12/05/2024 8:01 AM EDT Hospital Encounter [facility] ENDOSCOPY [address] [place] [address] Chris Orosco MD [address] [place] [phone] 12/05/2024 8:01 AM EDT - 12/05/2024 8:31 AM EDT Surgery [facility] ENDOSCOPY [address] [place] [address] Chris Orosco MD [address] [place] [address] EGD Scheduled Procedures Name Priority Associated Diagnoses [...] documented as of this encounter Care Teams Cold Working Supervisor Relationship Specialty Start Date End Date Enedina Mcguire NP [address] [place] [address] PCP - General Internal Medicine 10/05/24 documented as of this encounter
--- OUTSIDE RECORDS SUMMARY | 2024-11-27 08:04 | XMS_ITS | Encounter Summary ---
Author Organization [facility] Address [address] [place] [address] Care Team Providers Care Job Change Crew Member Name Role Phone Enedina Mcguire NP Primary Care Provider [phone] Source Comments This information has been disclosed [...] release of HIV test results or diagnoses. [id number] Encounter Details Date Type Department Care Team (Late st Contact Info) Description 10/22/2024 Chart Note [facility] Liver Transplant at [address] [place] [phone] Mary Butler, RN UNOS VERIFICATION CHECK FORM [...] Recorded In the past 12 months has [employer], [employer], oil, or water [employer] threatened to shut off services in your [...] Multidisciplinary Team documentation Initial Hepatology assessment sb animal care worker within the last year sb Dietitian [...] Multidisciplinary Team documentation Initial Hepatology assessment nlc animal care worker within the last year nlc Dietitian [...] [facility] ENDOSCOPY [address] [place] [address] Chris Orosco MD [address] [place] [phone] 12/05/2024 8:01 AM EDT - 12/05/2024 8:31 AM EDT Surgery [facility] ENDOSCOPY [address] [place] [address] Chris Orosco MD [address] [place] [address] EGD Scheduled Procedures Name Priority Associated Diagnoses [...] documented as of this encounter Care Teams Job Change Crew Member Relationship Specialty Start Date End Date Enedina Mcguire NP [address] [place] [address] PCP - General Internal Medicine 10/05/24 documented as of this encounter
--- OUTSIDE RECORDS SUMMARY | 2024-11-27 08:05 | XMS_ITS ---
Author Organization [facility] Address [address] [place] [address] Care Team Providers Care Chemist Water Purification Name Role Phone Enedina Mcguire NP Primary Care Provider [phone] Maureen Pantoja RN Unavailable Unavail able Transplant Episode Kidney Recipient [facility] ([place] [place]) [facility] Organ Received: Left Kidney Transplanted on 10/27/2024 Marked as Active Follow-up on 10/27/2024 Kidney CoordinatorJosr Weber RN Phone: N/A Fax: N/A Email: N/A [place] Organ Diagnosis Organ Primary Contributory Kidney Hepatorenal [...] RPR: Negative EBV IgM EBV VCA IgM: Not Done HBsAb HBsAb: Not Done EBNA EBNA IgG: Positive EBNA IgM: Not Done Care Team Name Role Phone Fax Email Josr Weber RN Kidney Coordinator N/A N/ A N/A Josr Weber RN Txp Post Coordinator N/A N/A N/A Flaquito Mayen MD Txp Surgeon [phone] N/A Bruno Gonzalez MD Txp Contact Center Manager [phone] N/A Yovanny Curran MD Referring Physician [phone] N/A Events Post-Transplant Pre-Transplant Admitted: 10/25/2024 Referred: 10/07/2024 Transplanted: 10/27/2024 Evaluation began: Discharged: 11/02/2024 Committee: 10/20/2024 Center waitlisted: 5
--- OUTSIDE RECORDS SUMMARY | 2024-11-27 08:05 | XMS_ITS | Encounter Summary ---
Author Organization [facility] Address [address] [place] [address] Care Team Providers Care Neck Band Setter Name Role Phone Enedina Mcguire NP Primary Care Provider [phone] Source Comments This information has been disclosed [...] release of HIV test results or diagnoses. [id number] Encounter Details Date Type Department Care Team (Late st Contact Info) Description 10/25/2024 Telephone [facility] Liver Transplant at [address] [address] Krissy Crowell RN Social History Tobacco Use [...] Recorded In the past 12 months has [employer], gas, oil, or water [employer] threatened to shut off services in [...] granted: N/A OPO: CHACHA OPO Contact: Kiet [phone] Recent illnesses (surgeon aware) [x] Yes [] [...] need to bring equipment or solution to [facility]. They will get supplies from [...] Notifications: Department Phone Comments Time/Name Capacity Management [phone] Notified of patient's pending TXP ORGANS: Liver Kidney Time: Spoke to: OR [phone] OR scheduled for: per Dr. Domínguez Recipient in the OR time 10/25/2024 @ 2200 Acute donor Risk (according to OPTN policy) YES (HCV, HBV, HIV, COVID) Notified Donor is DCD Time: 1145, spoke to [facility] OR district customs director: Gladys RAMIREZ ORGAN Time: yes 1155 BLOOD BANK [phone] For Liver and Heart only Spoke to [place] 1211 Nursing Can Filling Room Sweeper [phone] For delayed call in [facility] at 1158 PACU or Sameday [phone] Delayed call in: If recipient OR is 2 hrs or less from admission, call PACU/Sameday (basedon where nursing supervisor painting shipyard assigns patient) Abdominal Transplant 8CCP [phone] Transfer of care reported for abdominal txp Notified of dialysis type and last session if applicable Time: 8CCP district customs director: SICU [phone] Notify about abdominal txp admissions Time: 1215 SICU district customs director: Aleks Transplant Surgery Resident/PA QGenda Time: 1219 Spoke to: Dr. Corbett Transplant Surgery Fellow QGenda Time: 1200 Spoke to: Sveta Mojica MD Transplant Research Team [phone] Time: 1218 Spoke to: Macey If applicable, Dialysis Unit EMR Time: Spoke to: Pharmacy IV Room [phone] Liver Only Contact pharmacy to alert that HBIG will be needed when all the following are present: Donor: *HBsAg negative *HBV DNA/KIANA negative Recipient: *HBsAg positive *HBV DNA is detectable on most recent check Time: Spoke to: Heart Transplant CVICU [phone] Transfer of care reported for heart txp Time: CVICU district customs director: Email notification to Transplant Team(s) and OR district customs director. [Send the following information below to the [...] Venoveno bypass: No Donor info: Donor ID: [id number] Match ID: [id number] Anti-HBc: Negative HBV KIANA: Negative HBsAg: Negative [...] HBV, HCV, and post-transplant patient will undergo IKANA testing for HIV, HBV, and HCV. If transmission occurs effective therapies will be prescribed as indicated. documented in this encounter Plan of Treatment Upcoming Encounters Date Type Department Care Team (Late st Contact Info) Description 12/05/2024 8:01 AM EDT Hospital Encounter [facility] ENDOSCOPY [address] [place] [address] Chris Orosco MD [address] [place] [address] 12/05/2024 8:01 AM EDT - 12/05/2024 8:31 AM EDT Surgery [facility] ENDOSCOPY [address] [place] [address] Chris Orosco MD [address] [place] [address] EGD Scheduled Procedures Name Priority Associated Diagnoses [...] documented as of this encounter Care Teams Neck Band Setter Relationship Specialty Start Date End Date Enedina Mcguire NP [address] [place] [address] PCP - General Internal Medicine 10/05/24 documented as of this encounter
--- OUTSIDE RECORDS SUMMARY | 2024-11-27 08:05 | XMS_ITS | Encounter Summary ---
Author Organization [facility] Address [address] [place] [address] Care Team Providers Care Traveling Repair Accountant Name Role Phone Enedina Mcguire NP Primary Care Provider [phone] Source Comments This information has been disclosed [...] release of HIV test results or diagnoses. [id number] Encounter Details Date Type Department Care Team (Late st Contact Info) Description 10/22/2024 Chart Note [facility] Liver Transplant at [address] [place] [phone] Mary Butler, RN Social History Tobacco Use [...] Recorded In the past 12 months has [employer], gas, oil, or water [employer] threatened to shut off services in your [...] Description 12/05/2024 8:01 AM EDT Hospital Encounter [facility] ENDOSCOPY [address] [place] [address] Chris Orosco MD [address] [place] [address] 12/05/2024 8:01 AM EDT - 12/05/2024 8:31 AM EDT Surgery [facility] ENDOSCOPY [address] [place] [address] Chris Orosco MD [address] [place] [address] EGD Scheduled Procedures Name Priority Associated Diagnoses [...] 3.2(A) 3.5 - 5.0 g/dL Blood Result [facility] Provider MD LAB BLOOD ORDERABLES Denisse [...] 3.1(A) 3.5 - 5.0 g/dL Blood Result [facility] LAB BLOOD ORDERABLES Denisse l Result * (ABNORMAL) Protime-INR (10/21/2024) INR 1.52(A) 0.9 - 1.1 Protime 16.4 Plasma Result [facility] LAB BLOOD ORDERABLES Denisse l Result * (ABNORMAL) Hepatic Function Panel (10/21/2024) Bilirubin, Direct 5.4 Alkaline Phosphatase 190 U/L ALT 32 U/L AST 57 U/L Total Bilirubin 7.3(A) 0.1 - 1.4 mg/dL Total Protein 5.4(A) 6.4 - 8.2 g/dL Plasma Result [facility] LAB BLOOD ORDERABLES Denisse l Result documented in this encounter Visit Diagnoses Not on filedocumented in this encounter Additional Health Concerns Infection Onset Date Last Indicated Resolved Time C. difficile 09/09/2024 09/09/2024 10/27/2024 8:30 AM EDT Assessment Noted Time PHQ-9 Depression Total Score: 17 025 11:00 AM EDT documented as of this encounter Care Teams Traveling Repair Accountant Relationship Specialty Start Date End Date Enedina Mcguire NP [address] [place] [address] PCP - General Internal Medicine 10/05/24 documented as of this encounter
--- OUTSIDE RECORDS SUMMARY | 2024-11-27 08:05 | XMS_ITS | Encounter Summary ---
Author Organization [facility] Address [address] [place] [address] Care Team Providers Care Dock Manager Name Role Phone Enedina Mcguire NP Primary Care Provider [phone] Source Comments This information has been disclosed [...] release of HIV test results or diagnoses. [id number] Reason for Visit * Reason Comments Appointment Encounter Details Date Type Department Care Team ([facility] st Contact Info) Description 10/24/2024 Telephone [facility] Renal Hypertension [facility] at [address] [place] [phone] Joann Davies MA Appointment Social History Tobacco [...] Recorded In the past 12 months has [employer], [employer], oil, or water [employer] threatened to shut off services in your [...] 12/05/2024 8:01 AM EDT Hospital Encounter [facility] ENDOSCOPY [address] [place] [address] Chris Orosco MD [address] [place] [phone] 12/05/2024 8:01 AM EDT - 12/05/2024 8:31 AM EDT Surgery [facility] ENDOSCOPY [address] [place] [address] Chris Orosco MD [address] [place] [address] EGD Scheduled Procedures Name Priority Associated Diagnoses Date/Ti me EGD Cirrhosis of liver with ascites, unspecified hepatic cirrhosis type ([facility]) 12/05/2024 8:01 AM EDT documented as of this encounter Visit Diagnoses Not on filedocumented in this encounter Additional Health Concerns Infection Onset Date Last Indicated Resolved Time C. difficile 09/09/2024 09/09/2024 10/27/2024 8:30 AM EDT Assessment Noted Time PHQ-9 Depression Total Score: 17 025 11:00 AM EDT documented as of this encounter Care Teams Dock Manager Relationship Specialty Start Date End Date Enedina Mcguire NP [address] [place] [address] PCP - General Internal Medicine 10/05/24 documented as of this encounter
--- OUTSIDE RECORDS SUMMARY | 2024-11-27 08:05 | XMS_ITS ---
Author Organization [facility] Address [address] [place] [address] Care Team Providers Care Pairer Substandard Name Role Phone Enedina Mcguire NP Primary Care Provider [phone] Maureen Pantoja RN Unavailable Unavail able Transplant Episode Liver Recipient [facility] ([place], [place]) - [facility] Organ Received: Liver Transplanted on 10/26/2024 Marked as Active Follow-up on 10/26/2024 Liver CoordinatorMaureen Pantoja RN Phone: N/A Fax: N/A Email: N/A [place] Organ Diagnosis Organ Primary Contributory Liver Alcohol-Associated [...] N/A N/A Chris Orosco MD Referring Physician [phone] N/A Maureen Pantoja RN Txp Post Coordinator N/A N/A N/A NUBIA Barros Txp Injection Moulding Machine Operator N/A N/A N/A Harvey Domínguez III, MD Txp Surgeon [phone] N/A Mary Butler RN Txp Pre Coordinator N/A N/A N/A Events Post-Transplant Pre-Transplant Admitted: 10/25/2024 Referred: 08/13/2024 Transplanted: 10/26/2024 Evaluation began: 5 Discharged: 11/02/2024 Committee: 10/14/2024 Center waitlisted: 5 Appointments (10/28/2024 - 12/28/2024) When With Visit Type Description 11/04/2024 Txp Jose Hanna Established Patient Kidney transplant recipient (Primary Dx); Diarrhea of presumed infectious origin; Hypomagnesemia; Hypervolemia, unspecified hypervolemia type; Liver transplant recipient ([facility]); Other hypervolemia; Hyperparathyroidism ([facility]); Nausea and vomiting, unspecified vomiting type 11/04/2024 Txp Ebony Watkins Established Patient Li jemma transplant recipient ([facility]) (Primary Dx); Alcoholic cirrhosis of liver with ascites ([facility]); Kidney transplant recipient; Acute kidney injury superimposed on CKD ([facility]); CKD (chronic kidney disease) stage 4, GFR 15-29 ml/min ([facility]); Immunosuppressive management encounter following liver transplant ([facility]); Abdominal pain, unspecified abdominal location 11/11/2024 Txp Kady De La Rosa Established Patient Encounter for therapeutic drug monitoring (Primary Dx); Abdominal pain, unspecified abdominal location 11/11/2024 Txp Lorrie Mascorro Established Patient Kid haylee replaced by transplant (Primary Dx); Hypervolemia associated with renal insufficiency 11/25/2024 Txp Lalit Oscar Established Patient E ncounter for therapeutic drug monitoring (Primary Dx); S/P liver transplant ([facility]); Hypomagnesemia; Kidney transplant recipient; Hypertension, unspecified type; Gastroesophageal reflux disease, unspecified whether esophagitis present; Abdominal pain, unspecified abdominal location 11/25/2024 TxLorrie Poe
[2024-11-27 08:14] LABS: Hematocrit 31.3 % (42.0-52.0); Hemoglobin 10.2 g/dL (14.1-18.0); Immature Granulocytes % 0.5 %; Mean Corpuscular HGB Conc 32.6 g/dL (31.8-35.4); Mean Corpuscular Hemoglobin 30.2 pg (27.0-31.2); Mean Corpuscular Volume 92.6 fl (80-94); Nucleated Red Blood Cells % 0 %; Platelet Count 158 K/mm3 (142-424); Red Blood Count 3.38 M/mm3 (4.60-6.20); Red Cell Distribution Width-SD 60.1 fL; White Blood Count 6.6 K/mm3 (4.8-10.8)
[2024-11-27 08:29] LABS: INR 0.93 (0.9-1.1); Prothrombin Time 10.4 seconds (10.1-12.5)
[2024-11-27 08:46] LABS: Alanine Aminotransferase 19 U/L (12-78); Albumin Level 4.3 g/dl (3.5-5.0); Alkaline Phosphatase 149 U/L (38-126); Anion Gap 18.4 mEq/L (5-15); Aspartate Amino Transferase 13 U/L (17-59); Bilirubin,Direct 0.4 mg/dl (0.0-0.4); Bilirubin,Indirect 0.1 mg/dL (0.0-0.9); Bilirubin,Total 0.5 mg/dl (0.2-1.3); Bilirubin,Unconjugated 0.1 mg/dL (0.0-1.1); Blood Urea Nitrogen 42 mg/dl (9-20); Calcium 10.5 mg/dl (8.4-10.2); Carbon Dioxide 22 mmol/L (22.0-30.0); Chloride 103 mmol/L (98-107); Creatinine,Serum 1.10 mg/dl (0.66-1.25); Estimated Glomerular Filt Rate 74 ml/min (>60); GFR (African American) 89 ML/MIN (>60); Glucose 104 mg/dl (74-100); Phosphorous 5.8 mg/dl (2.5-4.5); Potassium 4.4 mmoL/L (3.5-5.1); Sodium 139 mmol/L (136-145); Total Protein,Serum 6.4 g/dl (6.3-8.2)
[2024-12-01 14:10] LABS: Tacrolimus (FK506), Blood 9.9 ng/mL (5.0-20.0)
== END 2024-11-27 23:59 | disposition home or self-care (01) ==
LOC: LAB 07:48
PROVIDERS: PCP Nurse Practitioner Family; Visit Provider Student in an Organized Health Care Education/Training Program
DX: K74.60 Unspecified cirrhosis of liver (principal); R18.8 Other ascites; Z79.60 Long term (current) use of unspecified immunomodulators and immunosuppressants; Z94.4 Liver transplant status
CPT/HCPCS: 36415; 80069; 80076; 80197; 85025; 85610

== ENCOUNTER 2024-12-02 07:49 | Outpatient (CLI) | payer OTHER, SELFPAY ==
--- OUTSIDE RECORDS SUMMARY | 2024-10-05 23:12 | XMS_ITS | Encounter Summary ---
Author Organization [facility] Address [facility] [place] [address] Care Team Providers Care Investigation Manager Name Role Phone Enedina Mcguire NP Primary Care Provider [phone] Source Comments This information has been disclosed [...] release of HIV test results or diagnoses. [id number] Reason for Referral * Surgical (Routine) - Pending Review Specialty Diagnoses / Procedures Referred By Shane hernadez Referred To Contact Gastroenterology Diagnoses Alcoholic cirrhosis of liver with ascites (CMS-HCC) Procedures Case request GI: EGGerri Min MD [address] [place] [address] Phone: tel: fax: Referral ID Status Reason Start Date Expiration Date V isits Requested Visits Authorized [id number] Pending Review 10/08/2024 04/06/2025 1 1 Reason for Visit * Auth/Cert (Routine) Specialty Diagnoses / Procedures Referred By Shane hernadez Referred To Contact General Internal Medicine Diagnoses [facility] [address] [place] [address] Phone: tel: Referral ID Status Reason Start Date Expiration Date Visits Re quested Visits Authorized [id number] 1 1 Encounter Details Date Type Department Care Team (Latest Contact Info) Description 10/05/2024 11:12 PM EDT - 10/17/2024 10:29 AM EDT Hospital Encounter [facility] [address] [place] [id number] Angie Blanchard MD [address] [place] [address] Fouzia Rene MD [address] [place] [address] Med/[place] [address] Chelsy Lerner MD [address] [place] [address] [place] [address] Alcoholic cirrhosis of liver with [...] Recorded In the past 12 months has [employer], gas, oil, or water [employer] threatened to shut off services in your [...] any time in the past 12 m [facility], were you homeless or living in a mcfp (including now)? No 10/06/2024 Yearly Questionnaire Answer [...] Home post discharge: Not Applicable Kandy BAE [facility] [phone] * William Blount MD - 10/17/2024 8:50 AM EDT [facility] Inpatient Discharge Summary Patient: Julien Gilbert Age: 39 y.o. CSN: [id number] Date of Admission: 10/05/2024 Date of Discharge: 10/17/2024 Attending Physician: Chelsy Lerner MD Primary Care Physician: Enedina Mcguire NP Diagnoses Present on Admission Past Medical History: Diagnosis Date Alcoholic cirrhosis of liver (CMS-HCC) Esophageal varices (CMS-HCC) Hepatorenal syndrome (CMS-HCC) Hypertension Other hyperlipidemia 07/26/2024 Renal cell carcinoma (CMS-HCC) Thrombocytopenia ([facility]) Thyroid disease Discharge Diagnoses Active Hospital Problems [...] Case IDs Date Procedure Surgeon Location Status [id number] 10/10/24 EGD Lino Soto MD ENDOSCOPY Comp [id number] 10/14/24 Left Heart Cath Irving Matta MD [...] at 10/08/2024 1:12 PM EDT US Duplex Fse-Ttn-Kfsfxas Comp Final Result IMPRESSION: ABDOMEN 1. Cirrhotic [...] 90 tablet Refills: 0 naloxone 4 mg/actuation [place] Commonly known as: NARCAN Apply 1 spray [...] Your Medications These medications were sent to [facility] [address] [place] [id number] Hours: Sunday - Sunday: 8:00AM - 6:00PM FLUoxetine 20 MG capsule lactulose 10 gram/15 mL solution loratadine 10 mg tablet methocarbamoL 500 MG tablet midodrine 10 MG tablet naloxone 4 mg/actuation [place] oxyCODONE 5 MG immediate release tablet Discharge [...] Order Questions: Select Supplement: Boost-1 kcal/ml supplement ([facility] only) As listed above, low sodium diet [...] AM EDT 10/17/2024 naloxone (NARCAN) 4 mg/actuation [place] Apply 1 spray in one nostril if [...] MD - 10/17/2024 10:23 AM EDT [facility] PROGRESS NOTE Name: Julien Gilbert CSN: [id number] Consulted by: Chelsy Lerner MD Reason for [...] Yes Past Week naloxone (NARCAN) 4 mg/actuation [place] Apply 1 spray in one nostril if [...] nucleated cells, <2000 RBCs 10% Polynuclear, 90% [place] nuc. There were initial reports of gram [...] of chemical dependency treatment as outpatient. - [facility] with no obstructive coronary disease - Psych eval for PTSD With recommendation of sertraline - Given his renal dysfunction, will plan to list for [facility] when he qualifies on 10/22/2024. Labs next week - Plan for d/c today Bobby Sidhu MD Transplant Quality Technician Please see the body of the resident, [...] remains <30 until October 22. Waiting for [facility] today. ASSESSMENT NADIYA on CKD, last discharge [...] Staff. Jeremiah Gamino PGY4 Nephrology. Pager no. [phone] Chief Complaint No chief complaint on file. [...] at 10/08/2024 1:12 PM EDT US Duplex Yih-Bdf-Kezwwsi Comp Final Result IMPRESSION: ABDOMEN 1. Cirrhotic [...] no head imaging has been performed at [facility]. -CT Head w/o contrast -Imaging showed no [...] Order Questions: Select Supplement: Boost-1 kcal/ml supplement ([facility] only) Code Status: Full Code Signed: WILLIAM BLOUNT MD 10/16/2024, 2:16 PM Cosigned by Chelsy Lerner MD at 10/16/2024 5:38 PM EDT Associated attestation - Chelsy Lerner MD - 10/16/2024 5:38 PM EDT [facility] Medicine Attending Supervision Note Julien Gilbert [...] another specialty or practice, other licensed professional (PT/OT/STAKING PRESS OPERATOR/RT), or a non-medical community professional: Hepatology, Interventional [...] due to positioning during LHC on 10/14. [place] the worst in CVR, but has improved [...] Kumar, RD - 10/16/2024 1:08 PM EDT [facility] Medical Nutrition Therapy Follow-Up Diet Order/Nutrition Support: Regular diet, Boost TID - Vanilla preference Pertinent Information: This is a 39 year old male history of ETOH cirrhosis d/b HE, ascites with SBP who is admitted for AMS. Precipitant of his HE likely SBP. Diagnostic paracentesis at OSH reportedly showed 61 nucleated cells, <2000 RBCs 10% Polynuclear, 90% [place] nuc. There were initial reports of gram [...] Based on CBW of 119.5 kg Kcals/day: 4327-7956 (18-21 kcals/kg) Protein g/day: 119-143 (1-1.2 g/kg) [...] Kumar RD, LD Clinical Dietitian Contact via Sm[employer] * Jerad Hughes MD - 10/16/2024 11:03 AM EDT [facility] PROGRESS NOTE Name: Julien Gilbert CSN: [id number] Consulted by: Chelsy Lerner MD Reason for [...] nucleated cells, <2000 RBCs 10% Polynuclear, 90% [place] nuc. There were initial reports of gram [...] of chemical dependency treatment as outpatient. - [facility] with no obstructive coronary disease - Psych eval for PTSD With recommendation of sertraline - Given his renal dysfunction, will plan to list for [facility] when he qualifies on 10/22/2024. - Will follow Bobby Sidhu MD Transplant Quality Technician Please see the body of the resident, [...] remains <30 until October 22. Waiting for [facility] today. ASSESSMENT NADIYA on CKD, last discharge [...] COMMENT on 10/08/2024 Iron%- Iron replete PLAN -[facility] yesterday- patient remains at risk of contrast related injury on top of exisiting NADIYA for 24-48 hrs after contrast load. -He is volume overloaded -patient needs to follow up closely with nephrology after discharge Thank you for allowing us to participate in this patient's care. Discussed with Consult Staff. Jeremiah Gamino PGY4 Nephrology. Pager no. [phone] Chief Complaint No chief complaint on file. [...] visitis Acute kidney injury superimposed on CKD ([facility]). NAEON. Pt's C yesterday without concern for [...] of local recurrence. Report Verified by: Alberto Rodriugez MD at 10/14/2024 12:02 PM EDT X-ray Mandible minimum 4-views Final Result IMPRESSION: 1. No acute osseous abnormality. Report Verified by: Diana Devlin MD at 10/08/2024 1:12 PM EDT US Duplex Fjn-Pia-Ivhuoat Comp Final Result IMPRESSION: ABDOMEN 1. Cirrhotic [...] no head imaging has been performed at [facility]. -CT Head w/o contrast -Imaging showed no [...] Order Questions: Select Supplement: Boost-1 kcal/ml supplement ([facility] only) Code Status: Full Code Signed: WILLIAM BLOUNT MD 10/15/2024, 10:49 AM Cosigned by Chlesy Lerner MD at 10/15/2024 2:47 PM EDT [...] another specialty or practice, other licensed professional (PT/OT/STAKING PRESS OPERATOR/RT), or a non-medical community professional: Hepatology, Interventional [...] due to positioning during LHC on 10/14. [place] the worst in CVR, but has improved [...] MD - 10/15/2024 10:15 AM EDT [facility] PROGRESS NOTE Name: Julien Gilbert CSN: [id number] Consulted by: Chelsy Lerner MD Reason for Consult: Decompensated Cirrhosis History of Present Illness: Juline Gilbert is a 39 y.o. with history [...] hyperlipidemia 07/26/2024 Renal cell carcinoma (CMS-HCC) Thrombocytopenia ([facility]) Thyroid disease Past Surgical History: Procedure Laterality [...] nucleated cells, <2000 RBCs 10% Polynuclear, 90% [place] nuc. There were initial reports of gram [...] - Will follow Bobby Sidhu MD Transplant Quality Technician Please see the body of the resident, [...] Quan MD - 10/14/2024 2:34 PM EDT [facility] Department of Cardiovascular Health and [...] remains <30 until October 22. Waiting for [facility] today. ASSESSMENT NADIYA on CKD, last discharge creatinine 2.4 Baseline Creatinine 1.2-1.3, HRS- NADIYA as no response to holding lasix and albumin UA bland Urine lytes <10/< 15/ 50 Holding lasix give [facility] today Renal Function: Recent Labs 10/14/24 0253 [...] COMMENT on 10/08/2024 Iron%- Iron replete PLAN -[facility] today -pt is volume up slightly -standing weights daily -c.w sodium bicarb tablets -discssed with the patient anad family about risk of needing HD after [facility] Thank you for allowing us to participate in this patient's care. Discussed with Consult Staff. Jeremiah Gamino PGY4 Nephrology. Pager no. [phone] Chief Complaint No chief complaint on file. [...] at 10/08/2024 1:12 PM EDT US Duplex Ibv-Qgf-Wmofehg Comp Final Result IMPRESSION: ABDOMEN 1. Cirrhotic [...] not tolerate Stress ECHO on 10/09 - [facility] today -Per GI recs, started on midodrine [...] no head imaging has been performed at [facility]. -CT Head w/o contrast -Imaging showed no [...] never required dialysis. Patient is going for [facility] today and will receive contrast, okay per [...] Order Questions: Select Supplement: Boost-1 kcal/ml supplement ([facility] only) Code Status: Full Code Signed: WILLIAM BLOUNT MD 10/14/2024, 10:26 AM Cosigned by Chelsy Lerner MD at 10/14/2024 11:53 AM EDT Associated attestation - Chelsy Lerner MD - 10/14/2024 11:53 AM EDT [facility] Medicine Attending Supervision Note Julien Gilbert [...] another specialty or practice, other licensed professional (PT/OT/STAKING PRESS OPERATOR/RT), or a non-medical community professional: Hepatology, Interventional [...] MD - 10/14/2024 7:42 AM EDT [facility] PROGRESS NOTE Name: Julien Gilbert CSN: [id number] Consulted by: Chelsy Lerner MD Reason for [...] nucleated cells, <2000 RBCs 10% Polynuclear, 90% [place] nuc. There were initial reports of gram [...] eval ongoing. Transplant work up ongoing - [facility] today - Transplant nephrology following for consideration [...] - Will follow Bobby Sidhu MD Transplant Quality Technician Please see the body of the resident, [...] Staff. Jeremiah Gamino PGY4 Nephrology. Pager no. [phone] Chief Complaint No chief complaint on file. [...] MD - 10/13/2024 12:33 PM EDT [facility] PROGRESS NOTE Name: Julien Gilbert CSN: [id number] Consulted by: Fouzia Rene MD Reason for [...] Alcoholic hepatitis Esophageal varices (CMS-HCC) Hepatorenal syndrome ([facility]) Hypertension Other hyperlipidemia 07/26/2024 Renal cell carcinoma [...] nucleated cells, <2000 RBCs 10% Polynuclear, 90% [place] nuc. There were initial reports of gram [...] eval ongoing. Transplant work up ongoing - [facility] today - Transplant nephrology following for consideration [...] - Will follow Bobby Sidhu MD Transplant Quality Technician Please see the body of the resident, [...] any interval liver pathology. * Rebekah Linares, [facility] - 10/13/2024 12:30 PM EDT Start [...] no psychomotor abnormalities Cognition: short term and skilled nursing memory intact Attitude: cooperative Affect: full range [...] Fabian, RD - 10/13/2024 10:49 AM EDT [facility] Medical Nutrition Therapy Reason(s) for [...] Order Questions: Select Supplement: Boost-1 kcal/ml supplement ([facility] only) Pertinent Information: Julien Gilbert is a [...] kg) Body mass index is 32.07 kg/m??. [place] Body Weight: 202 lbs (91.8 kg) +/- 10% Weight History: Wt Readings from Last 10 Encounters: 10/10/24 (!) 263 lb 8 oz (119.5 kg) 09/05/24 (!) 262 lb 9.6 oz (119.1 kg) 09/02/24 (!) 258 lb (117 kg) 08/17/24 (!) 242 lb 11.2 oz (110.1 kg) 07/28/24 (!) 245 lb (111.1 kg) Estimated Nutrition Needs: Based on CBW of 119.5 kg Kcals/day: 1117-9758 (18-21 kcals/kg) Protein g/day: 119-143 (1-1-2 g/kg) [...] Dietitian - Solid Organ Transplant Contact via [facility] * Eileen Schroeder MD, PhD - [...] at 10/08/2024 1:12 PM EDT US Duplex Goc-Rew-Uzshgox Comp Final Result IMPRESSION: ABDOMEN 1. Cirrhotic [...] no head imaging has been performed at [facility]. -CT Head w/o contrast -Imaging showed no [...] Order Questions: Select Supplement: Boost-1 kcal/ml supplement ([facility] only) Code Status: Full Code Signed: EILEEN [...] I reviewed the documentation by the medical sales team manager and agree as documented. Any additions or clarifications are listed below. Daily plan was discussed with patient at bedside and questions addressed. Patient ID: Julien Gilbert is a 39 y.o. male currently admitted for Acute kidney injury superimposed on CKD ([facility]) Supplemental History/ ROS: No acute events overnight [...] for Acute kidney injury superimposed on CKD ([facility]) Active Problems: NADIYA (acute kidney injury) on CKD ([facility]): Hepatorenal syndrome. Appreciate nephrology consult. S/p albumin X3. Baseline creatinine presumed to be around 2.5. Creatinine now seems to be fluctuating between 2.5-2.9 which may be his new baseline. We will continue to monitor. Spontaneous Bacterial Peritonitis ([facility]): Received 4 days of vancomycin, Ceftriaxone x 5d. Recent therapeutic paracentesis shows resolution. Continue Cipro prophylaxis Anemia: Multiple contributors. S/p 1 unit PRBC. Hemoglobin responded appropriately and remained stable. Will continue to monitor. Metabolic encephalopathy: Resolved. Likely related to combination of hepatic, metabolic, and possibly infectious insults. - Continue home lactulose and rifaximin Decompensated cirrhosis ([facility]): Appreciate hepatology consult. He has started his [...] was non-diagnostic due to hypotension. Plan for [facility] today, but now moved to tomorrow. - [...] when medically ready. Consider d/c home after [facility] tomorrow. FOUZIA RENE MD Attending Physician Department of Internal Medicine 10/13/2024 Medical Decision Making: // LEVEL 2 MOD One chronic illness with exacerbation, progression, or side effects of treatment Discussed with physician/SAWYER from another specialty or practice, other licensed professional (PT/OT/STAKING PRESS OPERATOR/RT), or a non-medical community professional: Nephrology, Hepatology [...] at 10/08/2024 1:12 PM EDT US Duplex Jpe-Hei-Hednreu Comp Final Result IMPRESSION: ABDOMEN 1. Cirrhotic [...] no head imaging has been performed at [facility]. -CT Head w/o contrast -Imaging showed no [...] Order Questions: Select Supplement: Boost-1 kcal/ml supplement ([facility] only) Code Status: Full Code Signed: CHARI [...] I reviewed the documentation by the medical sales team manager and agree as documented. Any additions or clarifications are listed below. Daily plan was discussed with patient at bedside and questions addressed. Patient ID: Julien Gilbert is a 39 y.o. male currently admitted for Acute kidney injury superimposed on CKD ([facility]) Supplemental History/ ROS: No acute events overnight [...] was non-diagnostic due to hypotension. Plan for [facility] tomorrow. - EGD completed. - Imaging requiring [...] another specialty or practice, other licensed professional (PT/OT/STAKING PRESS OPERATOR/RT), or a non-medical community professional: Nephrology, Hepatology [...] tid. cardiac workup pre txp. pLan for [facility] Sunday Liver transplant workup per GI/ Primary [...] concern for hepatorenal syndrome.` Patient came from [facility], paracentesis was performed yesterday on [...] 706.9 (H) 10/08/2024 No results found for: [id number] , FOLATE Lab Results Component Value Date [...] CRUR No results found for: MICROALBUR , [id number] In addition to the above an extensive [...] 4.6 10/12/2024 Lab Results Component Value Date [id number] 7.1 (L) 10/08/2024 PLAN Monitor renal panel [...] AM Colten Huertas MD, KISHOR LIN FNKF corporate legal manager Div. of Nephrology [facility] E-mail: [email or web address] This note was completely edited, written [...] Rene MD Interval hx No issues. Pending [facility]. Assessment: Renal Function: Cr: 2.77 Bun: 49 [...] concern for hepatorenal syndrome.` Patient came from [facility], paracentesis was performed yesterday on [...] 706.9 (H) 10/08/2024 No results found for: [id number] , FOLATE Lab Results Component Value Date [...] CRUR No results found for: MICROALBUR , [id number] In addition to the above an extensive [...] 3.5 10/11/2024 Lab Results Component Value Date [id number] 7.1 (L) 10/08/2024 PLAN Monitor renal panel [...] AM Colten Huertas MD, KISHOR LIN, FNDeclanF corporate legal manager Div. of Nephrology [facility] E-mail: [email or web address] This note was completely edited, written [...] is Acute kidney injury superimposed on CKD ([facility]). NAEON Pt felt much better today. A&O [...] at 10/08/2024 1:12 PM EDT US Duplex Fyj-Ruw-Ulyoewa Comp Final Result IMPRESSION: ABDOMEN 1. Cirrhotic [...] from outside facility. Will engage with them daily([phone]. Ask to speak to a tech) about [...] no head imaging has been performed at [facility]. -CT Head w/o contrast -Imaging showed no [...] Order Questions: Select Supplement: Boost-1 kcal/ml supplement ([facility] only) Code Status: Full Code Signed: CHARI [...] I reviewed the documentation by the medical sales team manager and agree as documented. Any additions or clarifications are listed below. Daily plan was discussed with patient at bedside and questions addressed. Patient ID: Julien Gilbert is a 39 y.o. male currently admitted for Acute kidney injury superimposed on CKD ([facility]) Supplemental History/ ROS: No acute events overnight [...] reflux disease) Anemia SBP (spontaneous bacterial peritonitis) ([facility]) Neck pain with history of cervical spinal [...] another specialty or practice, other licensed professional (PT/OT/STAKING PRESS OPERATOR/RT), or a non-medical community professional: Nephrology, Hepatology, [...] Strictly monitor urine output No Indication for BRIM PLATER 3. Not a candidate for terlipressin per [...] Ignacio Queen MD Renal Fellow Pager # [phone] Chief Complaint No chief complaint on file. [...] concern for hepatorenal syndrome.` Patient came from [facility], paracentesis was performed yesterday on [...] PHOS -- < > 3.5 3.4 3.3 CEIR92P 7.1* -- -- -- -- < > = values in this interval not displayed. Lab Results Component Value Date IRON 81 10/08/2024 TIBC SEE COMMENT 10/08/2024 FERRITIN 706.9 (H) 10/08/2024 No results found for: [id number] , FOLATE Lab Results Component Value Date [...] CRUR No results found for: MICROALBUR , [id number] In addition to the above an extensive [...] 3.3 10/10/2024 Lab Results Component Value Date [id number] 7.1 (L) 10/08/2024 PLAN Continue IV albumin [...] AM Colten Huertas MD, KISHOR LIN, CATHYF corporate legal manager Div. of Nephrology [facility] E-mail: [email or web address] This note was completely edited, written [...] to follow pt while pt is at [facility]. * Jodi Ortiz PharmD - 10/10/2024 10:27 AM EDT Clinical Pharmacy Service: Vancomycin Consult Progress Note Patient has been transitioned off of vancomycin therapy per team notes and orders. Pharmacy will sign-off at this time, please do not hesitate to consult again as needs arise. Thank you for involving pharmacy in the care of this patient. Jodi Ortiz PharmD Clinical Rig Builder Helper, Internal Medicine Preferred contact: [facility] Wcwjflx-Ar-Uaek Pager: [phone] October 10, 2024 10:27 AM Laboratory Data [...] 10/07/2024 10:50 PM Giardia Cryptosporidium Antigens Final [id number] 10/07/2024 10:50 PM Ova and Parasite Comprehensive w/ Giardia/Crypto Final [id number] Feces 10/06/2024 1:04 AM #2 Blood culture-Peripheral site 2 Preliminary [id number] Peripheral 10/06/2024 1:04 AM #1 Blood culture-Peripheral site 1 Preliminary [id number] Peripheral Pharmacokinetics Lab Results (Last 7 days) Today 0523 Yesterday 0459 10/08 0536 Vanc Rdm 16.4 11.0 16.0 * Gerri Peterson MD - 10/10/2024 10:09 AM EDT [facility] PROGRESS NOTE Name: Julien Gilbert CSN: [id number] Consulted by: Fouzia Rene MD Reason for [...] nucleated cells, <2000 RBCs 10% Polynuclear, 90% [place] nuc. Per OSH reports, ascitic fluid cultures [...] from the original note were not included. [facility] Clinical Pharmacy Service: Vancomycin Monitoring Consult [...] in sodium chloride 0.9 % 250 mL Qpep9Wif (Completed) 1,500 mg Once 10/09/2024 10/09/2024 Admin Instructions: Contact pharmacy if there is a question/concern of whether vancomycin should begiven based on serum drug levels. Use Muiv5Yke Adapter - Mix Thoroughly Before Administration Route: Intravenous vancomycin (VANCOCIN) 1,500 mg in sodium chloride 0.9 % 250 mL Lcxd7Iii 1,500 mg Once 10/10/2024 10/11/2024 Admin Instructions: Contact pharmacy if there is a question/concern of whether vancomycin should begiven based on serum drug levels. Use Adfr0Sxu Adapter - Mix Thoroughly Before Administration Route: [...] in sodium chloride 0.9 % 250 mL Xpmi7Jtc 1,500 mg 166.7 mL/hr 10/08/24 1259 New Bag vancomycin (VANCOCIN) 1,000 mg in sodium chloride 0.9 % 250 mL Jkuw8Sxl 1,000 mg 250 mL/hr --Objective Data-- Vitals: [...] 53 53 54 Creatinine 2.85 2.89 3.04 [place] body weight: 86.8 kg (191 lb 5.7 oz) Adjusted ideal body weight: 99.9 kg (220 lb 3.5 oz) Estimated CrCl: ~35-45 mL/min --Cultures-- Microbiology Results Date and Time Order Name Sensitivity Status Organisms Specimen ID Source 10/07/2024 10:50 PM Giardia Cryptosporidium Antigens Final [id number] 10/07/2024 10:50 PM Ova and Parasite Comprehensive w/ Giardia/Crypto Final [id number] Feces 10/06/2024 1:04 AM #2 Blood culture-Peripheral site 2 Preliminary [id number] Peripheral 10/06/2024 1:04 AM #1 Blood culture-Peripheral site 1 Preliminary [id number] Peripheral --Vancomycin Concentrations-- Lab Results (Last 7 [...] for the consult. Jodi Ortiz, PharmD Clinical Rig Builder Helper, Internal Medicine Preferred contact: [employer] Qvehmwz-Vs-Tmry Pager: [phone] October 10, 2024 9:13 AM * Eileen Schroeder MD, PhD - 10/10/2024 8:17 AM EDT Department of Internal Medicine Daily Progress Note Chief Complaint / Reason for Follow-Up Julien Gilbert is a 39 y.o. male on hospital day 5. The principal reason for today's follow up visit is Acute kidney injury superimposed on CKD ([facility]). KARENEMERLINE Pt was very conversational today. A&O [...] at 10/08/2024 1:12 PM EDT US Duplex Nin-Kyi-Qunvfwh Comp Final Result IMPRESSION: ABDOMEN 1. Cirrhotic [...] from outside facility. Will engage with them daily([phone]. Ask to speak to a tech) about [...] no head imaging has been performed at [facility]. -CT Head w/o contrast -Imaging showed no [...] Order Questions: Select Supplement: Boost-1 kcal/ml supplement ([facility] only) Code Status: Full Code Signed: EILEEN [...] I reviewed the documentation by the medical sales team manager and agree as documented. Any additions or clarifications are listed below. Daily plan was discussed with patient at bedside and questions addressed. Patient ID: Julien Gilbert is a 39 y.o. male currently admitted for Acute kidney injury superimposed on CKD ([facility]) Supplemental History/ ROS: No acute events overnight [...] another specialty or practice, other licensed professional (PT/OT/STAKING PRESS OPERATOR/RT), or a non-medical community professional: Nephrology, Hepatology, [...] Strictly monitor urine output No Indication for BRIM PLATER Not a candidate for terlipressin per liver due to HE, liver and kidney failure, on midodrine tid. Considering para today, cardiac workup pre txp Liver transplant workup per GI/ Primary team, considering for SLK, seen by renal transplant team Thank you for allowing us to participate in this patient's care. Discussed with Consult Staff. Ignacio Queen MD Renal Fellow Pager # [phone] Chief Complaint No chief complaint on file. [...] concern for hepatorenal syndrome.` Patient came from [facility], paracentesis was performed yesterday on [...] 9.0 9.3 PHOS -- 3.5 3.5 3.4 [id number] 7.1* -- -- -- Lab Results Component Value Date IRON 81 10/08/2024 TIBC SEE COMMENT 10/08/2024 FERRITIN 706.9 (H) 10/08/2024 No results found for: [id number] , FOLATE Lab Results Component Value Date [...] CRUR No results found for: MICROALBUR , [id number] In addition to the above an extensive [...] 3.4 10/09/2024 Lab Results Component Value Date DUDO41D 7.1 (L) 10/08/2024 PLAN Continue IV albumin [...] PM Colten Huertas MD, KISHOR LIN FNKF corporate legal manager Div. of Nephrology [facility] E-mail: [email or web address] This note was completely edited, written [...] MD - 10/09/2024 1:07 PM EDT [facility] HEPATOLOGY PROGRESS NOTE Name: Julien Gilbert CSN: [id number] Consulted by: Fouzia Rene MD Reason for [...] nucleated cells, <2000 RBCs 10% Polynuclear, 90% [place] nuc. Fluid cultures reportedly grew gram + [...] from the original note were not included. [facility] Clinical Pharmacy Service: Vancomycin Monitoring Consult [...] in sodium chloride 0.9 % 250 mL Bxtw5Jwt (Completed) 1,000 mg Once 10/08/2024 10/08/2024 Admin Instructions: Contact pharmacy if there is a question/concern of whether vancomycin should begiven based on serum drug levels. Use Fmdj5Kyc Adapter - Mix Thoroughly Before Administration Route: Intravenous vancomycin (VANCOCIN) 1,500 mg in sodium chloride 0.9 % 250 mL Wcbw8Hug 1,500 mg Once 10/09/2024 10/10/2024 Admin Instructions: Contact pharmacy if there is a question/concern of whether vancomycin should begiven based on serum drug levels. Use Naul5Qye Adapter - Mix Thoroughly Before Administration Route: [...] in sodium chloride 0.9 % 250 mL Ezpi3Nkt 1,000 mg 250 mL/hr 10/06/24 1413 New [...] 10/07/2024 10:50 PM Giardia Cryptosporidium Antigens Final [id number] 10/07/2024 10:50 PM Ova and Parasite Comprehensive w/ Giardia/Crypto Final [id number] Feces 10/06/2024 1:04 AM #2 Blood culture-Peripheral site 2 Preliminary [id number] Peripheral 10/06/2024 1:04 AM #1 Blood culture-Peripheral site 1 Preliminary [id number] Peripheral --Vancomycin Concentrations-- Lab Results (Last 7 [...] for the consult. Jodi Ortiz PharmD Clinical Rig Builder Helper, Internal Medicine Preferred contact: [employer] Clinical Igkxyxi-Wo-Yqdg Pager: [phone] October 09, 2024 8:29 AM * Eileen [...] at 10/08/2024 1:12 PM EDT US Duplex Dvv-Lpo-Bazopwj Comp Final Result IMPRESSION: ABDOMEN 1. Cirrhotic [...] from outside facility. Will engage with them daily([phone]. Ask to speak to a tech) about [...] no head imaging has been performed at [facility]. -CT Head w/o contrast -Imaging showed no [...] Order Questions: Select Supplement: Boost-1 kcal/ml supplement ([facility] only) Code Status: Full Code Signed: EILEEN [...] I reviewed the documentation by the medical sales team manager and agree as documented. Any additions or clarifications are listed below. Daily plan was discussed with patient at bedside and questions addressed. Patient ID: Julien Gilbert is a 39 y.o. male currently admitted for Acute kidney injury superimposed on CKD ([facility]) Supplemental History/ ROS: No acute events overnight [...] for Acute kidney injury superimposed on CKD ([facility]) Active Problems: Anemia: S/p 1 unit PRBC from yesterday. Hemoglobin responded appropriately and remained stable. Will continue to monitor. Metabolic encephalopathy: Mostly resolved. Likely related to combination of hepatic, metabolic, andpossibly infectious insults. - Continue home lactulose and rifaximin Spontaneous Bacterial Peritonitis ([facility]): Cultures from OSH are growing gram- positive organisms.We continue to await speciation. He remains afebrile and vital signs have been stable. - Continue vancomycin and ceftriaxone for now. - Will follow-up on speciation and sensitivities. Decompensated cirrhosis ([facility]): Appreciate hepatology consult. He has started his [...] another specialty or practice, other licensed professional (PT/OT/STAKING PRESS OPERATOR/RT), or a non-medical community professional: Nephrology, Hepatology Labs reviewed (1 pt each): CBC, CMP, INR & other daily labs Review of notes from a different specialty or different practice: Nephrology, Anesthesiology hepatology, * Gerri Peterson MD - 10/08/2024 1:40 PM EDT [facility] HEPATOLOGY PROGRESS NOTE Name: Julien Gilbert CSN: [id number] Consulted by: Fouzia Rene MD Reason for [...] nucleated cells, <2000 RBCs 10% Polynuclear, 90% [place] nuc. Fluid cultures reportedly grew gram + [...] disease (ESRD) patient in a hospital based, [facility]-hospital based, or home setting. -At [...] I have discussed this plan with the student accounts coordinator and the liver transplant team. Cosigned [...] from the original note were not included. [facility] Clinical Pharmacy Service: Vancomycin Monitoring Consult [...] in sodium chloride 0.9 % 250 mL Hrhp3Bso 1,000 mg Once 10/08/2024 10/09/2024 Admin Instructions: Contact pharmacy if there is a question/concern of whether vancomycin should begiven based on serum drug levels. Use Bqig0Ltf Adapter - Mix Thoroughly Before Administration Route: [...] 10/07/2024 10:50 PM Giardia Cryptosporidium Antigens Final [id number] 10/07/2024 10:50 PM Ova and Parasite Comprehensive w/ Giardia/Crypto In process [id number] Feces 10/06/2024 1:04 AM #2 Blood culture-Peripheral site 2 Preliminary [id number] Peripheral 10/06/2024 1:04 AM #1 Blood culture-Peripheral site 1 Preliminary [id number] Peripheral --Vancomycin Concentrations-- Lab Results (Last 7 [...] for the consult. Jodi Ortiz PharmD Clinical Rig Builder Helper, Internal Medicine Preferred contact: [employer] Clinical Jqrbwue-Zr-Csjn Pager: [phone] October 08, 2024 9:13 AM * Eileen [...] FREET4 0.74 09/03/2024 Diagnostic Studies US Duplex Euw-Gaa-Tndpqqc Comp Final Result IMPRESSION: ABDOMEN 1. Cirrhotic [...] no head imaging has been performed at [facility]. -CT Head w/o contrast -Imaging showed no [...] Order Questions: Select Supplement: Boost-1 kcal/ml supplement ([facility] only) Code Status: Full Code Signed: EILEEN [...] I reviewed the documentation by the medical sales team manager and agree as documented. Any additions or [...] home lactulose and rifaximin Spontaneous Bacterial Peritonitis ([facility]): Cultures from OSH are growing gram- positive organisms.We continue to await speciation. He remains afebrile and vital signs have been stable. - Continue vancomycin and ceftriaxone for now. - Will follow-up on speciation and sensitivities. Decompensated cirrhosis ([facility]): Appreciate hepatology consult. He has [...] tomorrow NADIYA (acute kidney injury) on CKD ([facility]): Appreciate nephrology consult. Likely has hepatorenal syndrome. [...] Problem: Metabolic encephalopathy Active Problems: Decompensated cirrhosis ([facility]) Acute kidney injury superimposed on CKD ([facility]) Thrombocytopenia ([facility]) Renal mass, left Metabolic acidosis [...] another specialty or practice, other licensed professional (PT/OT/STAKING PRESS OPERATOR/RT), or a non-medical community professional: Nephrology, Hepatology [...] Strictly monitor urine output No Indication for BRIM PLATER Not a candidate for terlipressin per liver due to HE, liver ans kidney failure, on midodrine tid Liver transplant workup per GI/ Primary team, considering for SLK Thank you for allowing us to participate in this patient's care. Discussed with Consult Staff. Ignacio Queen MD Renal Fellow Pager # [phone] Chief Complaint No chief complaint on file. [...] concern for hepatorenal syndrome.` Patient came from [facility], paracentesis was performed yesterday on 10/05? Fluid pending for SBP analysis Histories he has a past medical history of Alcoholic cirrhosis of liver (CMS-HCC), Alcoholic hepatitis, Esophageal varices ([facility]), Hepatorenal syndrome ([facility]), Hypertension, Other hyperlipidemia (07/26/2024), Renal cell [...] TIBC , FERRITIN No results found for: [id number] , FOLATE Lab Results Component Value Date [...] <15 No results found for: MICROALBUR , [id number] In addition to the above an extensive [...] 4.0 10/08/2024 Lab Results Component Value Date LCCN54E 7.1 (L) 10/08/2024 PLAN Continue IV albumin [...] AM Colten Huertas MD, KISHOR LIN FNKF corporate legal manager Div. of Nephrology [facility] E-mail: [email or web address] This note was completely edited, written [...] from the original note were not included. [facility] Clinical Pharmacy Service: Vancomycin Monitoring Consult [...] AM #2 Blood culture-Peripheral site 2 Preliminary [id number] Peripheral 10/06/2024 1:04 AM #1 Blood culture-Peripheral site 1 Preliminary [id number] Peripheral --Vancomycin Concentrations-- Lab Results (Last 7 [...] and toxicity. Thank you for the consult. Joid Ortiz PharmD Clinical Rig Builder Helper, Internal Medicine Preferred contact: [employer] Clinical Mpjuhrq-Ux-Tedk Pager: [phone] October 07, 2024 5:01 PM * Yamile Paige, PT - 10/07/2024 11:45 AM EDT Physical Therapy Initial Assessment and Discharge Name: Julien Gilbert : 1985 Attending Physician: Fouzia Rene MD Admission Diagnosis: AMS Date: 10/07/2024 [facility] Pertinent hospital course: Yes [...] MD - 10/07/2024 11:33 AM EDT [facility] HEPATOLOGY PROGRESS NOTE Name: Julien Gilbert CSN: [id number] Consulted by: Fouzia Rene MD Reason for [...] nucleated cells, <2000 RBCs 10% Polynuclear, 90% [place] nuc. Fluid cultures reportedly grewgram + rods. [...] on CKD - Most likely 2/2 to HRS-NADIAY - No significant improvement despite despite 200 [...] in liver selection meeting and clearance by licensed social worker. Please order CT cardiac coronary [...] Strictly monitor urine output No Indication for BRIM PLATER Liver transplant workup per GI/ Primary team Thank you for allowing us to participate in this patient's care. Discussed with Consult Staff. Ignacio Queen MD Renal Fellow Pager # [phone] Chief Complaint No chief complaint on file. [...] concern for hepatorenal syndrome.` Patient came from [facility], paracentesis was performed yesterday on [...] TIBC , FERRITIN No results found for: TCLEVMRA06 , FOLATE Lab Results Component Value Date [...] <15 No results found for: MICROALBUR , [id number] In addition to the above an extensive [...] PHOS 4.2 10/07/2024 No results found for: SVVT56M PLAN Continue IV albumin Monitor renal panel [...] AM Colten Huertas MD, KISHOR LIN, FNDeclanF corporate legal manager Div. of Nephrology [facility] E-mail: [email or web address] * Carmen Bernal OT - 10/07/2024 [...] at 10/06/2024 2:33 AM EDT US Duplex Jxf-Jeh-Ziscgjc Comp (Results Pending) US Abdomen Complete (Results [...] no head imaging has been performed at [facility]. -CT Head w/o contrast -Imaging showed no [...] Order Questions: Select Supplement: Boost-1 kcal/ml supplement ([facility] only) Code Status: Full Code Signed: EILEEN [...] I reviewed the documentation by the medical sales team manager and agree as documented. Any additions or [...] and mental status is improving. Decompensated cirrhosis ([facility]): Appreciate hepatology consult. He has started his transplant evaluation as an outpatient. We will follow-up with hepatology to discuss any inpatient testing that may need to be needed. - MELD labs daily - Continue home regimen with ursodiol, rifaximin and lactulose NADIYA (acute kidney injury) ([facility]): Appreciate nephrology consult. Likely has hepatorenal syndrome. [...] needed for pain. Continue to monitor. Thrombocytopenia ([facility]) Renal mass, left CKD (chronic kidney disease) stage 4, GFR 15-29 ml/min ([facility]) Metabolic acidosis with normal anion gap and [...] another specialty or practice, other licensed professional (PT/OT/STAKING PRESS OPERATOR/RT), or a non-medical community professional: Nephrology, Hepatology Labs reviewed (1 pt each): CMP, CBC Test results reviewed (1 pt each): CXR, Head CT Review of notes from a different specialty or different practice: Nephrology, hepatology Use of parenteral controlled substances * Kiet Gardiner, PharmD - 10/06/2024 1:07 PM EDT Images from the original note were not included. [facility] Clinical Pharmacy Service: Vancomycin Monitoring Consult [...] AM #2 Blood culture-Peripheral site 2 Preliminary [id number] Peripheral 10/06/2024 1:04 AM #1 Blood culture-Peripheral site 1 Preliminary [id number] Peripheral --Vancomycin Concentrations-- Lab Results (Last 7 [...] US Retroperitoneal complete (Results Pending) US Duplex Gac-Fsf-Mqmbfio Comp (Results Pending) CT Head WO contrast [...] PM EDT Hospital Medicine Attending Supervision Note [facility] // [facility] Julien Gilbert was seen 10/06/24 on rounds [...] Lerner MD - 10/05/2024 2:42 PM EDT [facility] Department of Medicine TRANSFER CALL NOTE Location [facility] ED History of Present Illness Julien Gilbert [...] nearest ED, with plan to transfer to [facility] if needing admission. In the ED, pt [...] Studies: Na 129 K 4.2 Cl 101 Mhmybh45 BUN 62 (up from baseline) Cr 3.6 [...] Quan MD - 10/14/2024 1:10 PM EDT [facility] PRE-SEDATION ASSESSMENT, HISTORY & PHYSICAL Date: [...] Neuro: AOx3 AUC For Cath Indication(s) for Discount Clerk Visit: Visit Indicators: Suspected CAD 2. Chest Pain Symptom Assessment: Asymptomatic 3. Heart Failure: Yes Class II 4. CHSA Clinical Frailty Scale: Mildly Frail Sedation Plan: Moderate Sedation with Local Anesthesia Antibiotic prophylaxis is not indicated. Mani Quan Interventional Family Coach Pager: [phone] [1] Patient Active Problem List Diagnosis Decompensated [...] Peterson MD - 10/10/2024 10:05 AM EDT [facility] PRE-SEDATION ASSESSMENT, HISTORY & PHYSICAL Date: [...] Resource Strain: Low Risk (07/09/2024) Received from [facility] Overall Financial Resource Strain (CARDIA) Difficulty [...] Physical Activity: Unknown (07/14/2024) Received from [facility] Exercise Vital Sign Days of Exercise per Week: Patient unable to answer Minutes of Exercise per Session: Not on file Stress: Patient Unable To Answer (07/14/2024) Received from [facility] [place] [facility] [employer] - Occupational Stress Questionnaire Feeling of Stress : Patient unable to answer Social Connections: Patient Unable To Answer (07/14/2024) Received from [facility] Social Connection and Isolation Panel [NHANES] Frequency of Communication with Friends and Family: Patient unable to answer Frequency of Social Gatherings with Friends and Family: Patient unable to answer Attends [employer]: Patient unable to answer Active Member [...] values in this interval not displayed. Imaging: @[id number]@ I have personally reviewed the imaging and have noted the following: Large recanalized umbilical vein Perihilar varices Replaced right hepatic artery Splenomegaly Spontaneous splenorenal shunt Large volume ascites, No portal vein thrombosis Assessment/Plan: A 39 y.o. male with ETOH decompensated by ascites, hepatic encephalopathy,bleeding esophageal Varices. Use and allocation of SCD, HEALTHCARE CORPORATE ACCOUNT DIRECTOR, DCD and LDLT allografts discussed in detail. [...] surgery (5%). I also explained the terminal computer operator risks of transplantation and immunosuppression including viral infection and cancer both solid organand lymphoma. Kemar Sahni MD, Fellow, Multiorgan Abdominal Transplant Surgery. [facility]. 10/09/2024 3:16 PM [1] Allergies [...] Ortiz MD - 10/06/2024 12:00 AM EDT [facility] Internal Medicine - History and [...] for him to report. Pt arrived with [employer] folder of paperwork from OSH and a disk that was taken to Radiology overnight for imaging upload. [facility] performed a bedside paracentesis and sent studies for SBP analysis. Willcontact [facility] to see if labs have resulted. Review of Systems 14 pt ROS conducted and negative aside from that mentioned in above HPI Past Medical and Social History Lives in [place], [place] at bedside Notes that the patient [...] OSH Repeat labs pending on admission to [facility] Assessment & Plan Julien Gilbert is a [...] AM EDT Hospital Medicine Attending Supervision Note [facility] // [facility] Julien Gilbert was seen 10/06/24 on rounds [...] confusion and lethargy. HE was seen at [facility] ED were CT head unremarkable and RUQ with gallstones, abdominal ascites diagnostic para done and started on empiric CTX. Labs remarkable at OSH for K 4.2 Cl 101 Wvscts98 BUN 62 (up from baseline) Cr 3.6 [...] another specialty or practice, other licensed professional (PT/OT/STAKING PRESS OPERATOR/RT), or a non-medical community professional: ed team [...] Medicine Department of Internal Medicine Pager ID: [phone] 6:04 AM, 10/06/2024 documented in this encounter [...] CNP Vascular & Interventional Radiology 10/10/2024,1:55 PM [facility]: [phone]) * Lino Soto MD - 10/10/2024 12:06 PM EDT EGD Brief Op Note Julien Gilbert 10/05/2024 - 10/10/2024 Pre-op Diagnosis: Alcoholic cirrhosis of liver with ascites (CMS-HCC) [K70.31] Post-op Diagnosis: Portal gastropathy, Medium size, non-bleeding esophageal varices Procedure(s): EGD Surgeon(s): Lino Soto MD Anesthesia: MAC (Monitor Anesthesia Care) Staff: Fellow: Gerri Peterson MD Endoscopy Nurse: Kandice Castaneda RN Boat Loader Helper: Diana Kemp Estimated Blood Loss: Minimal Specimens: Drains: There were no complications unless listed below. LINO SOTO MD Date: 10/10/2024 Time: 12:18 PM * Lino Soto MD - 10/10/2024 11:48 AM EDT [id number] Procedure Date: 10/10/2024 11:48 AM Patient Name: Julien Gilbert Date of : 1985 Admit Type: Inpatient Age: 39 Gender: Male Note Status: Finalized Attending MD: Lino Soto MD, [id number] Procedure: Upper GI endoscopy Indications: Gastroesopahgeal variceal [...] verified by the physician, the nurse, the inshore undersea warfare officer and the critical care technician in the pre-procedure area in the [...] to hypotension Procedure Code(s): --- Professional --- 71089, GC, Esophagogastroduodenoscopy, flexible, transoral; diagnostic, including collection of specimen(s) by brushing or washing, when performed (separate procedure) Diagnosis Code(s): --- Professional --- I85.00, Esophageal varices without bleeding K76.6, Portal hypertension K31.89, Other diseases of stomach and duodenum CPT copyright 2022 [employer]. All rights reserved. 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 Describes significant anxiety that occasionally limits his ability to drive, and stated he has to caul puller occasionally to collect himself, thought denied [...] need for sleep. Has not been on Stipple for mental health since stopping the cymbalta. [...] to his health decline. He was raised Confucianism and denied current engagement in any community [...] or other abnormalities Cognition/Memory: short term and terminal computer operator memory intact. Attention and concentration: is [...] from the original note were not included. [facility] General Cardiology Consult Note Referring [...] at baseline or with provocation, shows no zedyj-im-epbd atrial level shunt. - Pulmonary arteries: Systolic [...] 10/13/24, please keep NPO on 10/12/24 at MD Risks and benefits of new therapies added and new invasive and non-invasive procedures/diagnostic testing planned discussed with and understood by the patient/family who agree with the above plan. Plan discussed with the attending physician Dr. Blanco. Recommendations are preliminary until this note is co- signed by the attending. Follow up appointments with Cardiology can be scheduled by calling [phone]. Thank you for the opportunity to participate in this patient's care. Please call orpage with any questions. Leonor Garcia MD Family Coach I have personally seen, examined, reviewed all [...] 0659 10/11/24 0700 - 10/12/24 0659 Shift 0870-7929 [id number] 24 Hour Total 0014-2878 4262-2992 1617-0864 24 Hour Total INTAKE P.O. [phone] P.O. 0014 307 7739 Boost (mL) - [facility] only 240 240 I.V.(mL/kg) 450(3.8) Volume (mL) [...] (See Comments) Became Manic * Bakari Wahl, [facility] - 10/10/2024 10:07 AM EDT Interventional [...] CNP Vascular & Interventional Radiology 10/10/2024,1:54 PM [facility]: [phone]([id number]) [1] Social History Tobacco Use Smoking Status [...] EDTAssociated Order(s): IP CONSULT TO INFECTIOUS DISEASES [facility] DEPARTMENT OF INFECTIOUS DISEASE INITIAL NOTE Referring Physician: Fouzia Rene MD Consult Attending: Daria Garcia Patient: Julien Gilbert CSN: [id number] Reason for Consult: CC: Abx management History [...] HE. He was born and raised in [facility] . No travel to the [facility]. 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 [...] Resource Strain: Low Risk (07/09/2024) Received from [facility] Overall Financial Resource Strain (CARDIA) Difficulty [...] Physical Activity: Unknown (07/14/2024) Received from [facility] Exercise Vital Sign Days of Exercise per Week: Patient unable to answer Minutes of Exercise per Session: Not on file Stress: Patient Unable To Answer (07/14/2024) Received from [facility] [place] [facility] Occupational [facility] - Occupational Stress Questionnaire Feeling of Stress : Patient unable to answer Social Connections: Patient Unable To Answer (07/14/2024) Received from [facility] Social Connection and Isolation Panel [NHANES] Frequency of Communication with Friends and Family: Patient unable to answer Frequency of Social Gatherings with Friends and Family: Patient unable to answer Attends [facility]: Patient unable to answer Active Member [...] Comments: [facility] [place] [address] sodium bicarbonate 650 MG tablet Take 2 [...] Aphasia [R47.01] 10/06/2024 SBP (spontaneous bacterial peritonitis) ([facility]) [K65.2] 09/08/2024 Metabolic acidosis with normal anion gap and bicarbonate losses [E87.20] 09/03/2024 CKD (chronic kidney disease) stage 4, GFR 15-29 ml/min ([facility]) [N18.4] 09/03/2024 GERD (gastroesophageal reflux disease) [K21.9] 09/03/2024 Renal mass, left [N28.89] 08/18/2024 Thrombocytopenia ([facility]) [D69.6] Decompensated cirrhosis ([facility]) [K72.90, K74.60] 07/25/2024 NADIYA (acute kidney injury) ([facility]) [N17.9] 07/25/2024 Resolved Hospital Problems [...] Signed: Daria Garcia MD 10/08/2024, 9:46 AM [phone] [1] Allergies Allergen Reactions Adhesive Itching and [...] Resource Strain: Low Risk (07/09/2024) Received from [facility] Overall Financial Resource Strain (CARDIA) Difficulty [...] Physical Activity: Unknown (07/14/2024) Received from [facility] Exercise Vital Sign Days of Exercise per Week: Patient unable to answer Minutes of Exercise per Session: Not on file Stress: Patient Unable To Answer (07/14/2024) Received from [facility] [place] [facility] - Occupational Stress Questionnaire Feeling of Stress : Patient unable to answer Social Connections: Patient Unable To Answer (07/14/2024) Received from [facility] Social Connection and Isolation Panel [NHANES] Frequency of Communication with Friends and Family: Patient unable to answer Frequency of Social Gatherings with Friends and Family: Patient unable to answer Attends [facility]: Patient unable to answer Active Member [...] is no recent study available for direct [id number] comparison. Left Ventricle The left ventricle is [...] < 35 mmHgon resting echo from [facility] 07/15/24. No ischemic workup noted. [...] surgery with risk (OLT/OKT) Los Broussard MD, [facility] Department of Anesthesiology [1] Allergies Allergen Reactions Adhesive Itching and Rash Tegaderm adhesive on Ivs, pt states its tolerable Duloxetine Other (See Comments) Became Manic [2] Patient Active Problem List Diagnosis Decompensated cirrhosis ([facility]) NADIYA (acute kidney injury) ([facility]) Alcohol use disorder Metabolic encephalopathy Hypertension Other hyperlipidemia Thrombocytopenia (CMS-HCC) Renal mass, left Abdominal pain Hypokalemia CKD (chronic kidney disease) stage 4, GFR 15-29 ml/min ([facility]) Metabolic acidosis with normal anion gap and bicarbonate losses GERD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 NURSING TREATMENT ORDER PAL - BLOOD ADMIN Final Result Performing Organization Address [facility] de Phone Number EXTERNAL * Transfuse Fresh Frozen Plasma Transfusion Rate: Per dept routine, 1 Units (10/14/2024 2:08 PM EDT) Eleazar Nguyễn MD NURSING TREATMENT ORDER PAL - BLOOD ADMIN Final Result Performing Organization Address [facility]/ZIP Co de Phone Number EXTERNAL * Transfuse Platelets Transfusion Rate: Per dept routine (10/14/2024 12:43 PM EDT) us Eleazar Nguyễn MD NURSING TREATMENT ORDER PAL - BLOOD ADMIN Final Result Performing Organization Address [facility] Co de Phone Number EXTERNAL * Transfuse Platelets Transfusion Rate: Per dept routine, 1 Units (10/14/2024 12:43 PM EDT) us Eleazar Nguyễn MD NURSING TREATMENT ORDER PAL - BLOOD ADMIN Final Result Performing Organization Address City/[facility] Co de Phone Number EXTERNAL * Antibody Screen (10/14/2024 8:21 AM EDT) Antibody Screen Negative 10/14/2024 9:11 AM EDT [facility] Blood 10/14/2024 8:21 AM EDT 10/14/2024 8:33 AM EDT Narrative [facility] - 10/14/2024 9:26 AM EDT Testing performed by [facility] Transfusion Service us Eleazar Nguyễn MD BLOOD BANK TEST ORDERAB LES Final Result Performing Organization Address [facility] Co de Phone Number [facility] [address] [facility] * ABO/Rh (10/14/2024 8:21 AM EDT) ABO Grouping O 10/14/2024 8:55 AM EDT [facility] Rh Type Positive 10/14/2024 8:55 AM EDT [facility] Blood 10/14/2024 8:21 AM EDT 10/14/2024 8:33 AM EDT us Eleazar Nguyễn MD BLOOD BANK TEST ORDERAB LES Final Result Performing Organization Address [facility] Co de Phone Number [facility] [address] * (ABNORMAL) Protime-INR (10/14/2024 2:53 AM [...] BLOOD ORDERABLES Final Result [facility] [address] [place] [id number], [facility] * (ABNORMAL) Hepatic Function Panel (10/14/2024 2:53 AM EDT) Total Bilirubin 7.2(H) 0.0 - 1.5 mg/dL 10/14/2024 4:45 AM EDT [facility] Bilirubin, Direct 3.86(H) 0.00 - 0.40 mg/dL 10/14/2024 4:45 AM EDT [facility] AST 41(H) 13 - 39 U/L 10/14/2024 4:45 AM EDT [facility] ALT 22 7 - 52 U/L 10/14/2024 4:45 AM EDT [facility] Alkaline Phosphatase 119 36 - 125 U/L 10/14/2024 4:45 AM EDT [facility] Total Protein 4.6(L) 6.4 - 8.9 g/dL 10/14/2024 4:45 AM EDT [facility] Albumin 3.3(L) 3.5 - 5.7 g/dL 10/14/2024 4:45 AM EDT [facility] Bilirubin, Indirect 3.34(H) 0.00 - 1.10 mg/dL 10/14/2024 4:45 AM EDT [facility] Plasma 10/14/2024 2:53 AM EDT 10/14/2024 4:16 AM EDT us Eileen Schroeder MD, PhD LAB BLOOD ORDERABLES Final Result Performing Organization Address City/[facility]/ZIP Co de Phone Number [facility] [address] * Magnesium (10/14/2024 2:53 AM EDT) Magnesium 1.9 1.5 - 2.5 mg/dL 10/14/2024 4:45 AM EDT [facility] Plasma 10/14/2024 2:53 AM EDT 10/14/2024 4:16 AM EDT us Eileen Schroeder MD, PhD LAB BLOOD ORDERABLES Final Result Performing Organization Address [facility] Co de Phone Number [facility] [address] * (ABNORMAL) Renal Function Panel w/EGFR (10/14/2024 2:53 AM EDT) Sodium 136 133 - 146 mmol/L 10/14/2024 4:45 AM EDT [facility] Potassium 3.5 3.5 - 5.3 mmol/L 10/14/2024 4:45 AM EDT [facility] Chloride 107 98 - 110 mmol/L 10/14/2024 4:45 AM EDT [facility] CO2 16(L) 21 - 33 mmol/L 10/14/2024 4:45 AM EDT [facility] Anion Gap 13 3 - 16 mmol/L 10/14/2024 4:45 AM EDT [facility] BUN 55(H) 7 - 25 mg/dL 10/14/2024 4:45 AM EDT [facility] Creatinine 3.01(H) 0.60 - 1.30 mg/dL 10/14/2024 4:45 AM EDT [facility] Glucose 95 70 - 100 mg/dL 10/14/2024 4:45 AM EDT [facility] Calcium 8.5(L) 8.6 - 10.3 mg/dL 10/14/2024 4:45 AM EDT [facility] Phosphorus 4.4 2.1 - 4.7 mg/dL 10/14/2024 4:45 AM EDT [facility] Albumin 3.3(L) 3.5 - 5.7 g/dL 10/14/2024 4:45 AM EDT [facility] Osmolality, Calculated 297 278 - 305 mOsm/kg 10/14/2024 4:45 AM EDT [facility] EGFR 26 10/14/2024 4:45 AM EDT [facility] Comment:As of 2021, the estimated [...] MD, PhD LAB BLOOD ORDERABLES Final Result [facility] [address] [id number] * (ABNORMAL) CBC (10/14/2024 2:53 AM EDT) WBC 5.5 3.8 - 10.8 10E3/uL 10/14/2024 5:00 AM EDT [facility] RBC 2.09(L) 4.20 - 5.80 10E6/uL 10/14/2024 5:00 AM EDT [facility] Hemoglobin 7.6(L) 13.2 - 17.1 g/dL 10/14/2024 5:00 AM EDT [facility] Hematocrit 21.3(L) 38.5 - 50.0 % 10/14/2024 5:00 AM EDT [facility] MCV 101.7(H) 80.0 - 100.0 fL 10/14/2024 5:00 AM EDT [facility] MCH 36.3(H) 27.0 - 33.0 pg 10/14/2024 5:00 AM EDT [facility] MCHC 35.7 32.0 - 36.0 g/dL 10/14/2024 5:00 AM EDT [facility] RDW 17.6(H) 11.0 - 15.0 % 10/14/2024 5:00 AM EDT [facility] Platelets 35(L) 140 - 400 10E3/uL 10/14/2024 5:00 AM EDT [facility] Comment: Specimen checked for clots. None detected. Slide Reviewed for PLT Clumps. None Seen. MPV 8.5 7.5 - 11.5 fL 10/14/2024 5:00 AM EDT [facility] Whole Blood 10/14/2024 2:53 AM EDT 10/14/2024 4:17 AM EDT us Eileen Schroeder MD, PhD LAB BLOOD ORDERABLES Final Result [facility] [address] * Cardiac Cath Documents Scan (10/14/2024 [...] mL of GADOBUTROL 1 MMOL/ML INTRAVENOUS SYRINGE ([facility]) administered intravenously COMPARISON: CT 09/03/2024. Ultrasound 10/07/2024. [...] mL of GADOBUTROL 1 MMOL/ML INTRAVENOUS SYRINGE ([facility])administered intravenously COMPARISON: CT 09/03/2024. Ultrasound 10/07/2024. Outside [...] (ABNORMAL) Protime-INR (10/13/2024 5:35 AM EDT) Pathologist [facility] Protime 24.4(H) 12.1 - 15.1 seconds 10/13/2024 6:12 AM EDT [facility] INR 2.1(H) 0.9 - 1.1 10/13/2024 6:12 AM EDT [facility] Comment: RECOMMENDED THERAPEUTIC RANGES USING INR : Stable oral anticoagulant therapy: 2.0 - 3.0 Mechanical prosthetic heart valve: 2.5 - 3.5 Recurrent acute myocardial infarction: 2.5 - 3.5 Plasma 10/13/2024 5:35 AM EDT 10/13/2024 5:52 AM EDT us Eileen Schroeder MD, PhD LAB BLOOD ORDERABLES Final Result [facility] [address] * (ABNORMAL) Hepatic Function Panel (10/13/2024 5:35 AM EDT) Total Bilirubin 6.5(H) 0.0 - 1.5 mg/dL 10/13/2024 6:30 AM EDT [facility] Bilirubin, Direct 3.53(H) 0.00 - 0.40 mg/dL 10/13/2024 6:30 AM EDT [facility] AST 42(H) 13 - 39 U/L 10/13/2024 6:30 AM EDT [facility] ALT 19 7 - 52 U/L 10/13/2024 6:30 AM EDT [facility] Alkaline Phosphatase 108 36 - 125 U/L 10/13/2024 6:30 AM EDT [facility] Total Protein 4.4(L) 6.4 - 8.9 g/dL 10/13/2024 6:30 AM EDT [facility] Albumin 3.1(L) 3.5 - 5.7 g/dL 10/13/2024 6:30 AM EDT [facility] Bilirubin, Indirect 2.97(H) 0.00 - 1.10 mg/dL 10/13/2024 6:30 AM EDT [facility] Plasma 10/13/2024 5:35 AM EDT 10/13/2024 5:52 AM EDT Eileen Schroeder MD, PhD LAB BLOOD ORDERABLES Final Result Performing Organization Address [facility]/ZIP Co de Phone Number [facility] [address] [facility] * Magnesium (10/13/2024 5:35 AM EDT) Magnesium 2.0 1.5 - 2.5 mg/dL 10/13/2024 6:30 AM EDT [facility] Plasma 10/13/2024 5:35 AM EDT 10/13/2024 5:52 AM EDT Eileen Schroeder MD, PhD LAB BLOOD ORDERABLES Final Result Performing Organization Address [facility]/ZIP Co de Phone Number [facility] [address] * (ABNORMAL) Renal Function Panel w/EGFR (10/13/2024 5:35 AM EDT) Sodium 134 133 - 146 mmol/L 10/13/2024 6:30 AM EDT [facility] Potassium 3.7 3.5 - 5.3 mmol/L 10/13/2024 6:30 AM EDT [facility] Chloride 109 98 - 110 mmol/L 10/13/2024 6:30 AM EDT [facility] CO2 14(L) 21 - 33 mmol/L 10/13/2024 6:30 AM EDT [facility] Anion Gap 11 3 - 16 mmol/L 10/13/2024 6:30 AM EDT [facility] BUN 54(H) 7 - 25 mg/dL 10/13/2024 6:30 AM EDT [facility] Creatinine 2.99(H) 0.60 - 1.30 mg/dL 10/13/2024 6:30 AM EDT [facility] Glucose 116(H) 70 - 100 mg/dL 10/13/2024 6:30 AM EDT [facility] Calcium 8.3(L) 8.6 - 10.3 mg/dL 10/13/2024 6:30 AM EDT [facility] Phosphorus 4.5 2.1 - 4.7 mg/dL 10/13/2024 6:30 AM EDT [facility] Albumin 3.1(L) 3.5 - 5.7 g/dL 10/13/2024 6:30 AM EDT [facility] Osmolality, Calculated 294 278 - 305 mOsm/kg 10/13/2024 6:30 AM EDT [facility] EGFR 26 10/13/2024 6:30 AM EDT [facility] Comment:As of 2021, the estimated [...] MD, PhD LAB BLOOD ORDERABLES Final Result [facility] [address] [place] [address], [facility] * (ABNORMAL) CBC (10/13/2024 5:35 AM EDT) WBC 4.7 3.8 - 10.8 10E3/uL 10/13/2024 6:22 AM EDT [facility] RBC 2.06(L) 4.20 - 5.80 10E6/uL 10/13/2024 6:22 AM EDT [facility] Hemoglobin 7.4(L) 13.2 - 17.1 g/dL 10/13/2024 6:22 AM EDT [facility] Hematocrit 21.7(L) 38.5 - 50.0 % 10/13/2024 6:22 AM EDT [facility] MCV 105.4(H) 80.0 - 100.0 fL 10/13/2024 6:22 AM EDT [facility] MCH 35.9(H) 27.0 - 33.0 pg 10/13/2024 6:22 AM EDT [facility] MCHC 34.0 32.0 - 36.0 g/dL 10/13/2024 6:22 AM EDT [facility] RDW 18.5(H) 11.0 - 15.0 % 10/13/2024 6:22 AM EDT [facility] Platelets 35(L) 140 - 400 10E3/uL 10/13/2024 6:22 AM EDT [facility] Comment: CNV Specimen checked for clots. None detected. MPV 8.4 7.5 - 11.5 fL 10/13/2024 6:22 AM EDT [facility] Whole Blood 10/13/2024 5:35 AM EDT 10/13/2024 5:53 AM EDT us Eileen Schroeder MD, PhD LAB BLOOD ORDERABLES Final Result [facility] [address] [place], [place] [address] * (ABNORMAL) Ammonia (10/13/2024 5:35 AM EDT) Ammonia 203(HH) 27 - 90 ug/dL 10/13/2024 7:16 AM EDT [facility] Comment: HEMOLYSIS EVIDENT. RESULTS MAY BE INFLUENCED. Critical Result [id number] Called to and read back by: KEY MELO RN at: 10/13/2024 07:15:55 by:NISREEN Plasma 10/13/2024 5:35 AM EDT 10/13/2024 6:19 AM EDT us Ellis Mays DO LAB BLOOD ORDERABLES Final Resul t [facility] [address] [facility] * CARISA Rhythm Strip - Scan (10/12/2024 10:30 PM EDT) us Scanning Uch[facility] SCAN DOCS - NO RESULTS Final Res ult * (ABNORMAL) Protime-INR (10/12/2024 5:44 AM EDT) Protime 25.7(H) 12.1 - 15.1 seconds 10/12/2024 6:12 AM EDT [facility] INR 2.3(H) 0.9 - 1.1 10/12/2024 6:12 AM EDT [facility] Comment: RECOMMENDED THERAPEUTIC RANGES USING INR : Stable oral anticoagulant therapy: 2.0 - 3.0 Mechanical prosthetic heart valve: 2.5 - 3.5 Recurrent acute myocardial infarction: 2.5 - 3.5 Plasma 10/12/2024 5:44 AM EDT 10/12/2024 5:58 AM EDT us Eileen Schroeder MD, PhD LAB BLOOD ORDERABLES Final Result Performing Organization Address [facility]/ZIP Co de Phone Number [facility] [address] * (ABNORMAL) Hepatic Function Panel (10/12/2024 5:44 AM EDT) Total Bilirubin 6.5(H) 0.0 - 1.5 mg/dL 10/12/2024 6:29 AM EDT [facility] Bilirubin, Direct 3.64(H) 0.00 - 0.40 mg/dL 10/12/2024 6:29 AM EDT [facility] AST 40(H) 13 - 39 U/L 10/12/2024 6:29 AM EDT [facility] ALT 19 7 - 52 U/L 10/12/2024 6:29 AM EDT [facility] Alkaline Phosphatase 99 36 - 125 U/L 10/12/2024 6:29 AM EDT [facility] Total Protein 4.2(L) 6.4 - 8.9 g/dL 10/12/2024 6:29 AM EDT [facility] Albumin 3.1(L) 3.5 - 5.7 g/dL 10/12/2024 6:29 AM EDT [facility] Bilirubin, Indirect 2.86(H) 0.00 - 1.10 mg/dL 10/12/2024 6:29 AM EDT [facility] Plasma 10/12/2024 5:44 AM EDT 10/12/2024 5:58 AM EDT Eileen Schroeder MD, PhD LAB BLOOD ORDERABLES Final Result Performing Organization Address [facility]/ZIP Co de Phone Number [facility] [address] [place] [address] * Magnesium (10/12/2024 5:44 AM EDT) Magnesium 1.9 1.5 - 2.5 mg/dL 10/12/2024 6:29 AM EDT [facility] Plasma 10/12/2024 5:44 AM EDT 10/12/2024 5:58 AM EDT Eileen Schroeder MD, PhD LAB BLOOD ORDERABLES Final Result Performing Organization Address [facility] Co de Phone Number [facility] [address] * (ABNORMAL) Renal Function Panel w/EGFR (10/12/2024 5:44 AM EDT) Sodium 135 133 - 146 mmol/L 10/12/2024 6:29 AM EDT [facility] Potassium 3.7 3.5 - 5.3 mmol/L 10/12/2024 6:29 AM EDT [facility] Chloride 109 98 - 110 mmol/L 10/12/2024 6:29 AM EDT [facility] CO2 17(L) 21 - 33 mmol/L 10/12/2024 6:29 AM EDT [facility] Anion Gap 9 3 - 16 mmol/L 10/12/2024 6:29 AM EDT [facility] BUN 52(H) 7 - 25 mg/dL 10/12/2024 6:29 AM T [facility] Creatinine 2.94(H) 0.60 - 1.30 mg/dL 10/12/2024 6:29 AM EDT [facility] Glucose 121(H) 70 - 100 mg/dL 10/12/2024 6:29 AM EDT [facility] Calcium 8.5(L) 8.6 - 10.3 mg/dL 10/12/2024 6:29 AM EDT [facility] Phosphorus 4.6 2.1 - 4.7 mg/dL 10/12/2024 6:29 AM EDT [facility] Albumin 3.1(L) 3.5 - 5.7 g/dL 10/12/2024 6:[facility] Osmolality, Calculated 295 278 - 305 mOsm/kg 10/12/2024 6:29 AM [facility] EGFR 27 10/12/2024 6:29 AM [facility] Comment:As of 2021, the estimated [...] MD, PhD LAB BLOOD ORDERABLES Final Result [facility] [address] [place], [place] [id number] * (ABNORMAL) CBC (10/12/2024 5:44 AM EDT) WBC 3.3(L) 3.8 - 10.8 10E3/uL 10/12/2024 7:06 AM EDT [facility] RBC 1.95(L) 4.20 - 5.80 10E6/uL 10/12/2024 7:06 AM EDT [facility] Hemoglobin 7.2(L) 13.2 - 17.1 g/dL 10/12/2024 7:06 AM EDT [facility] Hematocrit 19.7(L) 38.5 - 50.0 % 10/12/2024 7:06 AM EDT [facility] MCV 101.2(H) 80.0 - 100.0 fL 10/12/2024 7:06 AM EDT [facility] MCH 37.0(H) 27.0 - 33.0 pg 10/12/2024 7:06 AM EDT [facility] MCHC 36.5(H) 32.0 - 36.0 g/dL 10/12/2024 7:06 AM EDT [facility] RDW 17.6(H) 11.0 - 15.0 % 10/12/2024 7:06 AM EDT [facility] Platelets 30(L) 140 - 400 10E3/uL 10/12/2024 7:06 AM EDT [facility] Comment: Specimen checked for clots. None detected. Slide Reviewed for PLT Clumps. None Seen. Platelet Estimate Decreased 10/12/2024 7:06 AM EDT [facility] MPV 8.3 7.5 - 11.5 fL 10/12/2024 7:06 AM EDT [facility] Whole Blood 10/12/2024 5:44 AM EDT 10/12/2024 5:58 AM EDT Narrative [facility] - 10/12/2024 7:06 AM EDT Peripheral blood smear was scanned per review criteria approved by the laboratory medical unit secretary. us Eileen Schroeder MD, PhD LAB BLOOD ORDERABLES Final Result [facility] [address] [facility]. [address] * CARISA Rhythm Strip - Scan (10/11/2024 10:04 PM EDT) us Scanning [employer] SCAN DOCS - NO RESULTS Final Res ult * (ABNORMAL) Protime-INR (10/11/2024 3:02 AM EDT) Protime 26.8(H) 12.1 - 15.1 seconds 10/11/2024 3:30 AM EDT [facility] INR 2.4(H) 0.9 - 1.1 10/11/2024 3:30 AM EDT [facility] Comment: RECOMMENDED THERAPEUTIC RANGES USING INR : Stable oral anticoagulant therapy: 2.0 - 3.0 Mechanical prosthetic heart valve: 2.5 - 3.5 Recurrent acute myocardial infarction: 2.5 - 3.5 Plasma 10/11/2024 3:02 AM EDT 10/11/2024 3:08 AM EDT us Eileen Schroeder MD, PhD LAB BLOOD ORDERABLES Final Result Performing Organization Address City/[facility]/ZIP Co de Phone Number [facility] [address] [facility] * (ABNORMAL) Hepatic Function Panel (10/11/2024 3:02 AM EDT) Total Bilirubin 7.3(H) 0.0 - 1.5 mg/dL 10/11/2024 3:38 AM EDT [facility] Bilirubin, Direct 3.85(H) 0.00 - 0.40 mg/dL 10/11/2024 3:38 AM EDT [facility] AST 39 13 - 39 U/L 10/11/2024 3:38 AM EDT [facility] ALT 20 7 - 52 U/L 10/11/2024 3:38 AM EDT [facility] Alkaline Phosphatase 88 36 - 125 U/L 10/11/2024 3:38 AM EDT [facility] Total Protein 4.5(L) 6.4 - 8.9 g/dL 10/11/2024 3:38 AM EDT [facility] Albumin 3.3(L) 3.5 - 5.7 g/dL 10/11/2024 3:38 AM EDT [facility] Bilirubin, Indirect 3.45(H) 0.00 - 1.10 mg/dL 10/11/2024 3:38 AM EDT [facility] Plasma 10/11/2024 3:02 AM EDT 10/11/2024 3:08 AM EDT us Eileen Schroeder MD, PhD LAB BLOOD ORDERABLES Final Result Performing Organization Address [facility]/ZIP Co de Phone Number [facility] [address] * Magnesium (10/11/2024 3:02 AM EDT) Magnesium 2.0 1.5 - 2.5 mg/dL 10/11/2024 3:38 AM EDT [facility] Plasma 10/11/2024 3:02 AM EDT 10/11/2024 3:08 AM EDT Eileen Schroeder MD, PhD LAB BLOOD ORDERABLES Final Result [facility] [address] * (ABNORMAL) Renal Function Panel w/EGFR (10/11/2024 3:02 AM EDT) Sodium 134 133 - 146 mmol/L 10/11/2024 3:38 AM EDT [facility] Potassium 3.6 3.5 - 5.3 mmol/L 10/11/2024 3:38 AM EDT [facility] Chloride 108 98 - 110 mmol/L 10/11/2024 3:38 AM EDT [facility] CO2 16(L) 21 - 33 mmol/L 10/11/2024 3:38 AM EDT [facility] Anion Gap 10 3 - 16 mmol/L 10/11/2024 3:38 AM EDT [facility] BUN 49(H) 7 - 25 mg/dL 10/11/2024 3:38 AM EDT [facility] Creatinine 2.77(H) 0.60 - 1.30 mg/dL 10/11/2024 3:38 AM EDT [facility] Glucose 112(H) 70 - 100 mg/dL 10/11/2024 3:38 AM EDT [facility] Calcium 8.9 8.6 - 10.3 mg/dL 10/11/2024 3:38 AM EDT [facility] Phosphorus 3.5 2.1 - 4.7 mg/dL 10/11/2024 3:38 AM EDT [facility] Albumin 3.3(L) 3.5 - 5.7 g/dL 10/11/2024 3:38 AM EDT [facility] Osmolality, Calculated 292 278 - 305 mOsm/kg 10/11/2024 3:38 AM EDT [facility] EGFR 29 10/11/2024 3:38 AM EDT [facility] Comment:As of 2021, the estimated [...] MD, PhD LAB BLOOD ORDERABLES Final Result [facility] [address] [place] [address], [facility] * (ABNORMAL) CBC (10/11/2024 3:02 AM EDT) WBC 4.0 3.8 - 10.8 10E3/uL 10/11/2024 3:55 AM EDT [facility] RBC 2.11(L) 4.20 - 5.80 10E6/uL 10/11/2024 3:55 AM EDT [facility] Hemoglobin 7.7(L) 13.2 - 17.1 g/dL 10/11/2024 3:55 AM EDT [facility] Hematocrit 21.2(L) 38.5 - 50.0 % 10/11/2024 3:55 AM EDT [facility] MCV 100.5(H) 80.0 - 100.0 fL 10/11/2024 3:55 AM EDT [facility] MCH 36.4(H) 27.0 - 33.0 pg 10/11/2024 3:55 AM EDT [facility] MCHC 36.2(H) 32.0 - 36.0 g/dL 10/11/2024 3:55 AM EDT [facility] RDW 17.9(H) 11.0 - 15.0 % 10/11/2024 3:55 AM EDT [facility] Platelets 32(L) 140 - 400 10E3/uL 10/11/2024 3:55 AM EDT [facility] Comment: Specimen checked for clots. None detected. Slide Reviewed for PLT Clumps. None Seen. Platelet Estimate Decreased 10/11/2024 3:55 AM EDT [facility] MPV 8.1 7.5 - 11.5 fL 10/11/2024 3:55 AM EDT [facility] Whole Blood 10/11/2024 3:02 AM EDT 10/11/2024 3:08 AM EDT Narrative [facility] - 10/11/2024 3:55 AM EDT Peripheral blood smear was scanned per review criteria approved by the laboratory medical unit secretary. us Eileen Schroeder MD, PhD LAB BLOOD ORDERABLES Final Result [facility] [address] [facility] * Vancomycin, random (10/11/2024 3:02 AM EDT) Vancomycin Random 13.4 ug/mL 10/11/2024 3:37 AM EDT [facility] Comment:Reference range not established for this test. Plasma 10/11/2024 3:02 AM EDT 10/11/2024 3:08 AM EDT us Jodi FreireD LAB BLOOD ORDERABLES Final Result Performing Organization Address [facility] Co de Phone Number [facility] [address] [facility]. [address] * IR Paracentesis incl imaging guide [...] diagnostic and therapeutic paracentesis. Bakari Wahl CNP, General Lithographic Worker Procedure and Findings: The procedure was performed [...] Using ultrasound guidance, a 10 cm, 5-F [employer] Centesis catheter was placed into the right [...] for diagnostic andtherapeutic paracentesis. Bakari Wahl CNP, General Lithographic Worker Procedure and Findings: The procedure was performed [...] scan (10/10/2024 3:08 PM EDT) us Scanning [facility] SCAN DOCS - NO RESULTS Final Res ult * (ABNORMAL) Body fluid cell count (10/10/2024 1:51 PM EDT) Color, Fluid Yellow(A) Colorless, Pale Yellow 10/10/2024 5:29 PM EDT [facility] Clarity, Fluid Clear 10/10/2024 5:29 PM EDT [facility] Neutrophil %, Fluid 9 % 10/10/2024 5:29 PM EDT [facility] Lymphocytes %, Fluid 13 % 10/10/2024 5:29 PM EDT [facility] Mesothelial %, Fluid 6 % 10/10/2024 5:29 PM EDT [facility] Macrophage %, Fluid 72 % 10/10/2024 5:29 PM EDT [facility] RBC, Fluid 2,662 /uL 10/10/2024 4:41 PM EDT [facility] Total Nucleated Cells, Fluid 89 /uL 10/10/2024 4:41 PM EDT [facility] Comment:Total Nucleated Cell s represent WBCs and other nucleated cells in the fluid such as lining cells. Ascitic Fluid ABDOMEN / Unknown 1:51 PM EDT 10/10/2024 3:56 PM EDT Gerri Peterson MD BODY FLUIDS AND STOOLS ORDERABL ES Final Result Performing Organization Address [facility] de Phone Number [facility] [address] * Body Fluid Culture plus Stain (10/10/2024 1:51 PM EDT) Gram Stain Result Cytospin Results: [facility] Gram Stain Result Polymorphonuclear Leukocytes Seen; [facility] Gram Stain Result No Organisms Seen; [facility] Culture Result No Growth After 5 Days [facility] Fluid ABDOMEN / Unknown 10/10/2024 1:51 PM EDT 10/10/2024 3:56 PM EDT Gerri Peterson MD MICROBIOLOGY - GENERAL ORDERABL ES Final Result Performing Organization Address [facility] de Phone Number [facility] [address] * UPPER GI ENDOSCOPY (10/10/2024 11:48 AM EDT) 10/10/2024 11:4 8 AM EDT Narrative [facility] - 10/10/2024 12:34 PM EDT [id number] Procedure Date: 10/10/2024 11:48 AM Patient Name: Julien Gilbert Date of : 1985 Admit Type: Inpatient Age: 39 Gender: Male Note Status: Finalized Attending MD: Lino Soto MD, [id number] Procedure: Upper GI endoscopy Indications: Gastroesopahgeal variceal [...] verified by the physician, the nurse, the inshore undersea warfare officer and the critical care technician in the pre-procedure area in the [...] to hypotension Procedure Code(s): --- Professional --- 44936, GC, Esophagogastroduodenoscopy, flexible, transoral; diagnostic, including collection of specimen(s) by brushing or washing, when performed (separate procedure) Diagnosis Code(s): --- Professional --- I85.00, Esophageal varices without bleeding K76.6, Portal hypertension K31.89, Other diseases of stomach and duodenum CPT copyright 2022 [employer]. All rights reserved. The codes documented in this report are preliminary and upon manager rn case review may be revised to meet current [...] In: 12:10:16 PM Scope Out: 12:17:[address] [place] [address], [id number] us Provider Not In System PROCEDURE/MINOR SURGICAL [...] BLOOD ORDERABLES Final Result Performing Organization Address [facility] Co de Phone Number [facility] [address] * (ABNORMAL) Hepatic Function Panel (10/10/2024 5:23 AM EDT) Total Bilirubin 8.6(H) 0.0 - 1.5 mg/dL 10/10/2024 6:21 AM EDT [facility] Bilirubin, Direct 4.65(H) 0.00 - 0.40 mg/dL 10/10/2024 6:21 AM EDT [facility] AST 40(H) 13 - 39 U/L 10/10/2024 6:21 AM EDT [facility] ALT 22 7 - 52 U/L 10/10/2024 6:21 AM EDT [facility] Alkaline Phosphatase 118 36 - 125 U/L 10/10/2024 6:21 AM EDT [facility] Total Protein 4.6(L) 6.4 - 8.9 g/dL 10/10/2024 6:21 AM EDT [facility] Albumin 3.3(L) 3.5 - 5.7 g/dL 10/10/2024 6:21 AM EDT [facility] Bilirubin, Indirect 3.95(H) 0.00 - 1.10 mg/dL 10/10/2024 6:21 AM EDT [facility] Plasma 10/10/2024 5:23 AM EDT 10/10/2024 5:50 AM EDT Eileen Schroeder MD, PhD LAB BLOOD ORDERABLES Final Result Performing Organization Address City/[facility]/ZIP Co de Phone Number [facility] [address] * Magnesium (10/10/2024 5:23 AM EDT) Magnesium 1.9 1.5 - 2.5 mg/dL 10/10/2024 6:21 AM EDT [facility] Plasma 10/10/2024 5:23 AM EDT 10/10/2024 5:50 AM EDT Eileen Schroeder MD, PhD LAB BLOOD ORDERABLES Final Result Performing Organization Address [facility] Co de Phone Number [facility] [address] * (ABNORMAL) Renal Function Panel w/EGFR (10/10/2024 5:23 AM EDT) Sodium 135 133 - 146 mmol/L 10/10/2024 6:21 AM EDT [facility] Potassium 3.6 3.5 - 5.3 mmol/L 10/10/2024 6:21 AM EDT [facility] Chloride 108 98 - 110 mmol/L 10/10/2024 6:21 AM EDT [facility] CO2 17(L) 21 - 33 mmol/L 10/10/2024 6:21 AM EDT [facility] Anion Gap 10 3 - 16 mmol/L 10/10/2024 6:21 AM EDT [facility] BUN 53(H) 7 - 25 mg/dL 10/10/2024 6:21 AM EDT [facility] Creatinine 2.85(H) 0.60 - 1.30 mg/dL 10/10/2024 6:21 AM EDT [facility] Glucose 113(H) 70 - 100 mg/dL 10/10/2024 6:21 AM EDT [facility] Calcium 9.0 8.6 - 10.3 mg/dL 10/10/2024 6:21 AM EDT [facility] Phosphorus 3.3 2.1 - 4.7 mg/dL 10/10/2024 6:21 AM EDT [facility] Albumin 3.3(L) 3.5 - 5.7 g/dL 10/10/2024 6:21 AM EDT [facility] Osmolality, Calculated 295 278 - 305 mOsm/kg 10/10/2024 6:21 AM EDT [facility] EGFR 28 10/10/2024 6:21 AM EDT [facility] Comment:As of 2021, the estimated [...] MD, PhD LAB BLOOD ORDERABLES Final Result [facility] [address] [place] [address], [facility] * (ABNORMAL) CBC (10/10/2024 5:23 AM EDT) WBC 5.1 3.8 - 10.8 10E3/uL 10/10/2024 6:14 AM EDT [facility] RBC 2.04(L) 4.20 - 5.80 10E6/uL 10/10/2024 6:14 AM EDT [facility] Hemoglobin 7.3(L) 13.2 - 17.1 g/dL 10/10/2024 6:14 AM EDT [facility] Hematocrit 20.6(L) 38.5 - 50.0 % 10/10/2024 6:14 AM EDT [facility] MCV 101.2(H) 80.0 - 100.0 fL 10/10/2024 6:14 AM EDT [facility] MCH 36.0(H) 27.0 - 33.0 pg 10/10/2024 6:14 AM EDT [facility] MCHC 35.5 32.0 - 36.0 g/dL 10/10/2024 6:14 AM EDT [facility] RDW 17.6(H) 11.0 - 15.0 % 10/10/2024 6:14 AM EDT [facility] Platelets 39(L) 140 - 400 10E3/uL 10/10/2024 6:14 AM EDT [facility] Comment: CNV Specimen checked for clots. None detected. MPV 9.8 7.5 - 11.5 fL 10/10/2024 6:14 AM EDT [facility] Whole Blood 10/10/2024 5:23 AM EDT 10/10/2024 5:51 AM EDT us Eileen Schroeder MD, PhD LAB BLOOD ORDERABLES Final Result Performing Organization Address [facility] de Phone Number [facility] [address] * Vancomycin, random (10/10/2024 5:23 AM EDT) Vancomycin Random 16.4 ug/mL 10/10/2024 6:22 AM EDT [facility] Comment:Reference range not established for this test. Plasma 10/10/2024 5:23 AM EDT 10/10/2024 5:51 AM EDT us Jodi FreireD LAB BLOOD ORDERABLES Final Result [facility] [address] [facility] [address], [facility] * ECHO STRESS W/ CONTRAST (10/09/2024 4:37 PM EDT) Anatomical Region Laterality Modality Chest Ultrasound 10/09/2024 2:40 PM EDT Narrative 10/09/2024 6:45 PM EDT * [facility]* [address] [place] [address] Stress Echocardiogram Patient: Julien Gilbert Room: 8142 Height: 76in MR Number: [id number] : 1985 Weight: 262lb Account: [id number] Gender: M BP: 125 / 77 Study Date: 10/09/2024 Age: 39 BSA: 2.48m^2 Referring physician: Gerri Peterson Interpreting physician: Tonya Henriquez MD FELLOW Lisa Jha MD PERFORMING Tonya Henriquez MD HIM SPECIALIST [place] ORDERING Gerri Peterson REFERRING Gerri [...] was augmented by the addition of hand filter tank tender helper head and leg lifts. The infusion was terminated [...] at baseline or with provocation, shows no kjvoz-zl-jhzd atrial level shunt. - Pulmonary arteries: Systolic [...] at baseline or with provocation, shows no riziy-ds-clvc atrial level shunt. Pulmonary artery: - Systolic [...] at baseline or with provocation, shows no ghrdz-je-bgsz atrial level shunt. Pericardium: - There is [...] peak heart rate and blood pressure was 32543qq Hg/min. Stress testing did not produce any [...] Reviewed and confirmed by Tonya Henriquez MD [id number] Procedure Note Tonya Henriquez MD - 10/09/2024 * [facility]* [address] [place] [id number] Stress Echocardiogram Patient: Julien Gilbert Room: 8142 Height: 76in MR Number: [id number] : 1985 Weight: 262lb Account: [id number] Gender: M BP: 125 / 77 Study Date: 10/09/2024 Age: 39 BSA: 2.48m^2 Referring physician: Gerri Peterson Interpreting physician: Tonya Henriquez MD FELLOW Lisa Jha MD PERFORMING Tonya Henriquez MD HIM SPECIALIST [place] [place] ORDERING Gerri Peterson REFERRING Gerri Peterson ATTENDING Fouzia Rene ADMITTING Angie Blanchard Procedure:STRESS ECHO - PHARMACOLOGIC Order: Indications: Pre-Operative Clearance (Z01.818). PMH: EtOH Use Disorder. Risk factors: Hypertension. Dyslipidemia. Study data: Height: 76in. 193cm. Weight: 262lb. 118.8kg. The previousstudy was not available, so comparison was made to the report of 07/15/2024. Study status: Routine. Procedure: [facility] A baseline [facility] was recorded. Intravenous [...] was augmented by the addition of hand filter tank tender helper head and leg lifts. The infusion was terminated [...] at baseline or with provocation, shows no yqsmg-mh-mtpb atrial level shunt. - Pulmonary arteries: Systolic [...] study at baseline or with provocation, showsno camru-ps-rzdk atrial level shunt. Pulmonary artery: - Systolic [...] at baseline or with provocation, shows no xhxdo-fa-btrt atrial level shunt. Pericardium: - There is [...] heart rate). The maximal predicted heart rate [id number]. The target heart rate was 152bpm. The target heart rate was achieved.The heart rate response to stress is normal. There is a normal resting blood pressure with an appropriate response to stress. The rate-pressureproduct for the peak heart rate and blood pressure was 25666qt Hg/min. Stress testing did not produce any [...] Reviewed and confirmed by Tonya Henriquez MD [id number] us Gerri Peterson MD CV ECHO ORDERABLES Final Result * (ABNORMAL) Renal Function Panel w/EGFR, STAT (10/09/2024 1:05 PM EDT) Sodium 134 133 - 146 mmol/L 10/09/2024 2:10 PM EDT [facility] Potassium 3.7 3.5 - 5.3 mmol/L 10/09/2024 2:10 PM EDT [facility] Chloride 105 98 - 110 mmol/L 10/09/2024 2:10 PM EDT [facility] CO2 17(L) 21 - 33 mmol/L 10/09/2024 2:10 PM EDT [facility] Anion Gap 12 3 - 16 mmol/L 10/09/2024 2:10 PM EDT [facility] BUN 53(H) 7 - 25 mg/dL 10/09/2024 2:10 PM EDT [facility] Creatinine 2.89(H) 0.60 - 1.30 mg/dL 10/09/2024 2:10 PM EDT [facility] Glucose 108(H) 70 - 100 mg/dL 10/09/2024 2:10 PM EDT [facility] Calcium 9.3 8.6 - 10.3 mg/dL 10/09/2024 2:10 PM EDT [facility] Phosphorus 3.4 2.1 - 4.7 mg/dL 10/09/2024 2:10 PM EDT [facility] Albumin 3.6 3.5 - 5.7 [...] LAB BLOOD ORDERABLES Final Result [facility] [address] [facility] [place] [id number], [facility] * (ABNORMAL) Renal Function Panel w/EGFR, STAT (10/09/2024 8:14 AM EDT) Sodium 134 133 - 146 mmol/L 10/09/2024 8:47 AM EDT [facility] Potassium 3.4(L) 3.5 - 5.3 mmol/L 10/09/2024 8:47 AM EDT [facility] Chloride 107 98 - 110 mmol/L 10/09/2024 8:47 AM EDT [facility] CO2 17(L) 21 - 33 mmol/L 10/09/2024 8:47 AM EDT [facility] Anion Gap 10 3 - 16 mmol/L 10/09/2024 8:47 AM EDT [facility] BUN 54(H) 7 - 25 mg/dL 10/09/2024 8:47 AM EDT [facility] Creatinine 3.04(H) 0.60 - 1.30 mg/dL 10/09/2024 8:47 AM EDT [facility] Glucose 124(H) 70 - 100 mg/dL 10/09/2024 8:47 AM EDT [facility] Calcium 9.0 8.6 - 10.3 mg/dL 10/09/2024 8:47 AM EDT [facility] Phosphorus 3.5 2.1 - 4.7 mg/dL 10/09/2024 8:47 AM EDT [facility] Albumin 3.4(L) 3.5 - 5.7 g/dL 10/09/2024 8:47 AM EDT [facility] Osmolality, Calculated 294 278 - 305 mOsm/kg 10/09/2024 8:47 AM EDT [facility] EGFR 26 10/09/2024 8:47 AM EDT [facility] Comment:As of 2021, the estimated [...] MD LAB BLOOD ORDERABLES Final Resu lt [facility] [address] [id number], [facility] * Prepare RBC, leukoreduced, 1 Units (10/09/2024 6:16 AM EDT) Product Code A6124R73 [facility] Unit Number [id number] [facility]LL Dispense Status Presumed Transfused_PT [facility] Blood Expiration Date [id number] [facility] Coding System [id number] Product Eileen Schroeder MD, PhD BLOOD BANK PRODUCT OR DERABLES Final Result [facility] * (ABNORMAL) Protime-INR (10/09/2024 4:59 AM EDT) Protime 26.5(H) 12.1 - 15.1 seconds 10/09/2024 6:30 AM EDT [facility] INR 2.4(H) 0.9 - 1.1 10/09/2024 6:30 AM EDT [facility] Comment: RECOMMENDED THERAPEUTIC RANGES USING INR : Stable oral anticoagulant therapy: 2.0 - 3.0 Mechanical prosthetic heart valve: 2.5 - 3.5 Recurrent acute myocardial infarction: 2.5 - 3.5 Plasma 10/09/2024 4:59 AM EDT 10/09/2024 5:55 AM EDT Eileen Schroeder MD, PhD LAB BLOOD ORDERABLES Final Result Performing Organization Address [facility] Co de Phone Number [facility] [address] * (ABNORMAL) Hepatic Function Panel (10/09/2024 4:59 AM EDT) Total Bilirubin 9.0(H) 0.0 - 1.5 mg/dL 10/09/2024 6:42 AM EDT [facility] Bilirubin, Direct 4.60(H) 0.00 - 0.40 mg/dL 10/09/2024 6:42 AM EDT [facility] AST 38 13 - 39 U/L 10/09/2024 6:42 AM EDT [facility] ALT 18 7 - 52 U/L 10/09/2024 6:42 AM EDT [facility] Alkaline Phosphatase 122 36 - 125 U/L 10/09/2024 6:42 AM EDT [facility] Total Protein 4.8(L) 6.4 - 8.9 g/dL 10/09/2024 6:42 AM EDT [facility] Albumin 3.4(L) 3.5 - 5.7 g/dL 10/09/2024 6:42 AM EDT [facility] Bilirubin, Indirect 4.40(H) 0.00 - 1.10 mg/dL 10/09/2024 6:42 AM EDT [facility] Plasma 10/09/2024 4:59 AM EDT 10/09/2024 5:57 AM EDT Eileen Schroeder MD, PhD LAB BLOOD ORDERABLES Final Result Performing Organization Address [facility] Co de Phone Number [facility] [address] * Magnesium (10/09/2024 4:59 AM EDT) Magnesium 1.8 1.5 - 2.5 mg/dL 10/09/2024 6:42 AM EDT [facility] Plasma 10/09/2024 4:59 AM EDT 10/09/2024 5:57 AM EDT Eileen Schroeder MD, PhD LAB BLOOD ORDERABLES Final Result Performing Organization Address [facility] Co de Phone Number [facility] [address] * (ABNORMAL) Renal Function Panel w/EGFR (10/09/2024 4:59 AM EDT) Sodium 134 133 - 146 mmol/L 10/09/2024 6:42 AM EDT [facility] Potassium 3.3(L) 3.5 - 5.3 mmol/L 10/09/2024 6:42 AM EDT [facility] Chloride 107 98 - 110 mmol/L 10/09/2024 6:42 AM EDT [facility] CO2 16(L) 21 - 33 mmol/L 10/09/2024 6:42 AM EDT [facility] Anion Gap 11 3 - 16 mmol/L 10/09/2024 6:42 AM EDT [facility] BUN 56(H) 7 - 25 mg/dL 10/09/2024 6:42 AM EDT [facility] Creatinine 2.98(H) 0.60 - 1.30 mg/dL 10/09/2024 6:42 AM EDT [facility] Glucose 112(H) 70 - 100 mg/dL 10/09/2024 6:42 AM EDT [facility] Calcium 9.0 8.6 - 10.3 mg/dL 10/09/2024 6:42 AM EDT [facility] Phosphorus 3.5 2.1 - 4.7 mg/dL 10/09/2024 6:42 AM EDT [facility] Albumin 3.4(L) 3.5 - 5.7 g/dL 10/09/2024 6:42 AM EDT [facility] Osmolality, Calculated 294 278 - 305 mOsm/kg 10/09/2024 6:42 AM EDT [facility] EGFR 26 10/09/2024 6:42 AM EDT [facility] Comment:As of 2021, the estimated [...] MD, PhD LAB BLOOD ORDERABLES Final Result [facility] [address] [place] [address], [facility] * (ABNORMAL) CBC (10/09/2024 4:59 AM EDT) WBC 4.6 3.8 - 10.8 10E3/uL 10/09/2024 6:21 AM EDT [facility] RBC 2.17(L) 4.20 - 5.80 10E6/uL 10/09/2024 6:21 AM EDT [facility] Hemoglobin 8.0(L) 13.2 - 17.1 g/dL 10/09/2024 6:21 AM EDT [facility] Hematocrit 21.8(L) 38.5 - 50.0 % 10/09/2024 6:21 AM EDT [facility] MCV 100.5(H) 80.0 - 100.0 fL 10/09/2024 6:21 AM EDT [facility] MCH 36.7(H) 27.0 - 33.0 pg 10/09/2024 6:21 AM EDT [facility] MCHC 36.5(H) 32.0 - 36.0 g/dL 10/09/2024 6:21 AM EDT [facility] RDW 18.1(H) 11.0 - 15.0 % 10/09/2024 6:21 AM EDT [facility] Platelets 36(L) 140 - 400 10E3/uL 10/09/2024 6:21 AM EDT [facility] Comment:Specimen checked for clots. None detected. MPV 8.3 7.5 - 11.5 fL 10/09/2024 6:21 AM EDT [facility] Whole Blood 10/09/2024 4:59 AM EDT 10/09/2024 5:56 AM EDT us Eileen Schroeder MD, PhD LAB BLOOD ORDERABLES Final Result [facility] [address] [place] [address], [facility] * Renal Tx Recipient (10/09/2024 4:59 AM EDT) [facility] Renal Transplant Recipient The request and specimen(s) for this test have been received and transported to the [facility] at [address] [place] [address]. The [facility] will report results directly to the client. 10/09/2024 7:26 AM EDT [facility] Blood 10/09/2024 4:59 AM EDT 10/09/2024 7:26 AM EDT us Aaron Gonzalez MD LAB BLOOD ORDERABLES Final Resu lt [facility] [address] * Vancomycin, random (10/09/2024 4:59 AM EDT) [facility] Vancomycin Random 11.0 ug/mL 10/09/2024 6:33 AM EDT [facility] Comment:Reference range not established for this test. Plasma 10/09/2024 4:59 AM EDT 10/09/2024 5:56 AM EDT us Jodi Ortiz PharmD LAB BLOOD ORDERABLES Final Result [facility] [address] * (ABNORMAL) CBC (10/08/2024 5:52 PM EDT) [facility] WBC 5.6 3.8 - 10.8 10E3/uL 10/08/2024 6:52 PM EDT [facility] RBC 2.38(L) 4.20 - 5.80 10E6/uL 10/08/2024 6:52 PM EDT [facility] Hemoglobin 8.3(L) 13.2 - 17.1 g/dL 10/08/2024 6:52 PM EDT [facility] Hematocrit 24.6(L) 38.5 - 50.0 % 10/08/2024 6:52 PM EDT [facility] MCV 103.2(H) 80.0 - 100.0 fL 10/08/2024 6:52 PM EDT [facility] MCH 34.7(H) 27.0 - 33.0 pg 10/08/2024 6:52 PM EDT [facility] MCHC 33.6 32.0 - 36.0 g/dL 10/08/2024 6:52 PM EDT [facility] RDW 18.5(H) 11.0 - 15.0 % 10/08/2024 6:52 PM EDT [facility] Platelets 39(L) 140 - 400 10E3/uL 10/08/2024 6:52 PM EDT [facility] Comment:CNV MPV 8.1 7.5 - 11.5 fL 10/08/2024 6:52 PM EDT [facility] Whole Blood 10/08/2024 5:52 PM EDT 10/08/2024 6:45 PM EDT us Eileen Schroeder MD, PhD LAB BLOOD ORDERABLES Final Result Performing Organization Address [facility] Co de Phone Number [facility] [address] * Transfuse RBC Has consent been obtained? Yes; Transfusion Rate: Per dept routine (10/08/2024 1:17 PM EDT) us Eileen Schroeder MD, PhD NURSING TREATMENT ORD ERABLES - BLOOD ADMIN Final Result Performing Organization Address City/[facility]/ZIP Co de Phone Number EXTERNAL * Transfuse RBC Has consent been obtained? Yes; Transfusion Rate: Per dept routine, 1 Units (10/08/2024 1:17 PM EDT) us Eileen Schroeder MD, PhD NURSING TREATMENT ORD ERABLES - BLOOD ADMIN Final Result Performing Organization Address City/[facility] Co de Phone Number EXTERNAL * (ABNORMAL) MMR(IgG) Panel (Measles, Mumps, Rubella) (10/08/2024 10:25 AM EDT) Mumps IgG Positive 10/08/2024 11:39 AM EDT [facility] MUMPS IGG NUM 99.00(H) 0.0 - 8.9 U/mL 10/08/2024 11:39 AM EDT [facility] Rubella IgG Scr Positive 10/08/2024 11:40 AM EDT [facility] RUB NUM 4.15(H) 0.00 - 0.89 INDEX 10/08/2024 11:40 AM EDT [facility] Rubeola Ab, IgG Positive 10/08/2024 11:39 AM EDT [facility] RUB IGG NUM 273.00(H) 0.00 - 13.40 U/mL 10/08/2024 11:39 AM EDT [facility] Serum 10/08/2024 10:2 5 AM EDT 10/08/2024 10:49 AM EDT Narrative [facility] - 10/08/2024 11:40 AM EDT [...] MD LAB BLOOD ORDERABLES Final Resu lt [facility] [address] [id number], [facility] * (ABNORMAL) Hemoglobin A1C (10/08/2024 10:25 AM EDT) Hemoglobin A1C 3.7(L) 4.0 - 5.6 % 10/09/2024 1:22 PM EDT [facility] Comment: Hemoglobin A1c Interpretation Guidelines: [...] ORDERABLES Final Resu lt Performing Organization Address [facility]/ZIP Co de Phone Number [facility] [address] * (ABNORMAL) Vitamin D 25 Hydroxy (10/08/2024 10:25 AM EDT) Vit D, 25-Hydroxy 7.1(L) 30.0 - 100.0 ng/mL 10/08/2024 11:36 AM EDT [facility] Comment: Vitamin D deficiency has been defined by the [place] of Medicine (IOM) and an Endocrine Society [...] MD LAB BLOOD ORDERABLES Final Resu lt [facility] [address] [facility] * Iron Studies (Iron + TIBC) (10/08/2024 10:25 AM EDT) Iron 81 50 - 212 ug/dL 10/08/2024 11:23 AM EDT [facility] % Iron Saturation SEE COMMENT 15.0 - 55.0 % 10/08/2024 11:23 AM EDT [facility] Comment:Unable to calculate result because contributing result outside reportable range.. TIBC SEE COMMENT 261 - 462 ug/dL 10/08/2024 11:23 AM EDT [facility] Comment:Unable to calculate result because contributing result outside reportable range.. Serum 10/08/2024 10:2 5 AM EDT 10/08/2024 10:49 AM EDT Result [facility] Gerri Peterson MD LAB BLOOD ORDERABLES Final Resu lt [facility] [address] [facility] * (ABNORMAL) Ferritin (10/08/2024 10:25 AM EDT) Ferritin 706.9(H) 23.9 - 336.2 ng/mL 10/08/2024 11:35 AM EDT [facility] Serum 10/08/2024 10:2 5 AM EDT 10/08/2024 10:49 AM EDT Result [facility] Gerri Peterson MD LAB BLOOD ORDERABLES Final Resu lt Performing Organization Address City/[facility]/ZIP Co de Phone Number [facility] [address] [facility] * QuantiFERON TB2 Ag (10/08/2024 10:25 AM EDT) QuantiFERON TB2 Ag Value 0.07 10/10/2024 10:41 AM EDT [facility] Plasma 10/08/2024 10:2 5 AM EDT 10/08/2024 11:05 AM EDT Result [facility] Gerri Peterson MD LAB BLOOD ORDERABLES Final Resu lt [facility] [address] * QuantiFERON TB1 Ag (10/08/2024 10:25 AM EDT) QuantiFERON TB1 Ag Value 0.06 10/10/2024 10:41 AM EDT [facility] Plasma 10/08/2024 10:2 5 AM EDT 10/08/2024 11:05 AM EDT Gerri Peterson MD LAB BLOOD ORDERABLES Final Resu lt Performing Organization Address [facility]/ZIP Co de Phone Number [facility] [address] [facility] * QuantiFERON Nil (10/08/2024 10:25 AM EDT) QuantiFERON Nil 0.06 10:41 AM EDT [facility] Plasma 10/08/2024 10:2 5 AM EDT 10/08/2024 11:05 AM EDT Result [facility] Gerri Peterson MD LAB BLOOD ORDERABLES Final Resu lt Performing Organization Address [facility] de Phone Number [facility] [address] [facility] * QuantiFERON Mitogen (10/08/2024 10:25 AM EDT) QuantiFERON Interpretation Negative Negative 10/10/2024 10:41 AM EDT [facility] Comment:Negative result geovanny cates M. tuberculosis infection is NOT likely. Negative results do not preclude tuberculosis infection (especially in immunosuppressed patients). Negative results have a TB antigen minus Nil value less than 0.35 IU/mL. In cases with high suspicion of disease, retesting or additional testing with medical evaluation may be useful. QuantiFERON Mitogen 4.87 10/10 10:41 AM EDT [facility] Plasma 10/08/2024 10:2 5 AM EDT 10/08/2024 11:05 AM EDT Narrative [facility] - 10/10/2024 10:41 AM EDT [...] in immunosuppressed states. Please see www.cdc.gov/tb. Result [facility] Gerri Peterson MD LAB BLOOD ORDERABLES Final Resu lt Performing Organization Address City/[facility] Co de Phone Number [facility] [address] [employer]. [address] * Reticulocyte Count, Auto (10/08/2024 7:41 AM EDT) Retic Ct Pct 1.35 0.50 - 2.00 % 10/08/2024 9:12 AM EDT [facility] Retic Ct Abs 26,190 25,000 - 90,000 /uL 10/08/2024 9:14 AM EDT [facility] Immature Retic Fract 0.37 0.09 - 0.56 10/08/2024 9:12 AM EDT [facility] Whole Blood 10/08/2024 7:41 AM EDT 10/08/2024 8:51 AM EDT Result [facility] Angie Blanchard MD LAB BLOOD ORDERABLES Final Res ult Performing Organization Address [facility] Co de Phone Number [facility] [address] [employer] * (ABNORMAL) Haptoglobin (10/08/2024 7:41 AM EDT) Haptoglobin <30(L) 44 - 215 mg/dL 10/08/2024 8:53 AM EDT [facility] Serum 10/08/2024 7:41 AM EDT 10/08/2024 7:51 AM EDT Result [facility] Eileen Schroeder MD, PhD LAB BLOOD ORDERABLES Final Result Performing Organization Address City/[facility] Co de Phone Number [facility] [address] [employer]. [address] * (ABNORMAL) CBC - Post Transfusion (10/08/2024 7:41 AM EDT) WBC 3.7(L) 3.8 - 10.8 10E3/uL 10/08/2024 8:34 AM EDT [facility] RBC 1.94(L) 4.20 - 5.80 10E6/uL 10/08/2024 8:34 AM EDT [facility] Hemoglobin 7.1(L) 13.2 - 17.1 g/dL 10/08/2024 8:34 AM EDT [facility] Hematocrit 20.0(L) 38.5 - 50.0 % 10/08/2024 8:34 AM EDT [facility] MCV 103.1(H) 80.0 - 100.0 fL 10/08/2024 8:34 AM EDT [facility] MCH 36.5(H) 27.0 - 33.0 pg 10/08/2024 8:34 AM EDT [facility] MCHC 35.4 32.0 - 36.0 g/dL 10/08/2024 8:34 AM EDT [facility] RDW 17.2(H) 11.0 - 15.0 % 10/08/2024 8:34 AM EDT [facility] Platelets 37(L) 140 - 400 10E3/uL 10/08/2024 8:34 AM EDT [facility] Comment: Specimen checked for clots. None detected. Slide Reviewed for PLT Clumps. None Seen. _Platelet Morphology Normal _Platelets Appear Decreased MPV 8.7 7.5 - 11.5 fL 10/08/2024 8:34 AM EDT [facility] Whole Blood 10/08/2024 7:41 AM EDT 10/08/2024 7:52 AM EDT Narrative [facility] - 10/08/2024 8:34 AM EDT Post-transfusion us Eileen Schroeder MD, PhD LAB BLOOD ORDERABLES Final Result [facility] [address] * Antibody Screen (10/08/2024 7:41 AM EDT) Antibody Screen Negative 10/08/2024 8:26 AM EDT [facility] Blood 10/08/2024 7:41 AM EDT 10/08/2024 7:57 AM EDT Narrative [facility] - 10/08/2024 8:32 AM EDT Testing performed by [facility] Transfusion Service Eileen Schroeder MD, PhD BLOOD BANK TEST ORDER PAL Final Result [facility] [address] * ABO/Rh (10/08/2024 7:41 AM EDT) ABO Grouping O 10/08/2024 8:14 AM EDT [facility] Rh Type Positive 10/08/2024 8:14 AM EDT [facility] Blood 10/08/2024 7:41 AM EDT 10/08/2024 7:57 AM EDT Eileen Schroeder MD, PhD BLOOD BANK TEST ORDER PAL Final Result [facility] [address] * (ABNORMAL) Lactate dehydrogenase (10/08/2024 5:36 AM EDT) LD 102(L) 110 - 270 U/L 10/08/2024 8:20 AM EDT [facility] Plasma 10/08/2024 5:36 AM EDT 10/08/2024 7:58 AM EDT Angie Blanchard MD LAB BLOOD ORDERABLES Final Res ult [facility] [address] * (ABNORMAL) Protime-INR (10/08/2024 5:36 AM [...] BLOOD ORDERABLES Final Result Performing Organization Address City/State/[facility] Co de Phone Number [facility] [address] * (ABNORMAL) Hepatic Function Panel (10/08/2024 5:36 AM EDT) Total Bilirubin 7.7(H) 0.0 - 1.5 mg/dL 10/08/2024 6:25 AM EDT [facility] Bilirubin, Direct 4.28(H) 0.00 - 0.40 mg/dL 10/08/2024 6:25 AM EDT [facility] AST 34 13 - 39 U/L 10/08/2024 6:25 AM EDT [facility] ALT 16 7 - 52 U/L 10/08/2024 6:25 AM EDT [facility] Alkaline Phosphatase 103 36 - 125 U/L 10/08/2024 6:25 AM EDT [facility] Total Protein 4.7(L) 6.4 - 8.9 g/dL 10/08/2024 6:25 AM EDT [facility] Albumin 3.5 3.5 - 5.7 g/dL 10/08/2024 6:25 AM EDT [facility] Bilirubin, Indirect 3.42(H) 0.00 - 1.10 mg/dL 10/08/2024 6:25 AM EDT [facility] Plasma 10/08/2024 5:36 AM EDT 10/08/2024 5:52 AM EDT Eileen Schroeder MD, PhD LAB BLOOD ORDERABLES Final Result Performing Organization Address City/[facility]/ZIP Co de Phone Number [facility] [address] * Magnesium (10/08/2024 5:36 AM EDT) Magnesium 1.9 1.5 - 2.5 mg/dL 10/08/2024 6:25 AM EDT [facility] Plasma 10/08/2024 5:36 AM EDT 10/08/2024 5:52 AM EDT Eileen Schroeder MD, PhD LAB BLOOD ORDERABLES Final Result Performing Organization Address [facility] Co de Phone Number [facility] [address] * (ABNORMAL) Renal Function Panel w/EGFR (10/08/2024 5:36 AM EDT) Sodium 135 133 - 146 mmol/L 10/08/2024 6:25 AM EDT [facility] Potassium 3.2(L) 3.5 - 5.3 mmol/L 10/08/2024 6:25 AM EDT [facility] Chloride 106 98 - 110 mmol/L 10/08/2024 6:25 AM EDT [facility] CO2 17(L) 21 - 33 mmol/L 10/08/2024 6:25 AM EDT [facility] Anion Gap 12 3 - 16 mmol/L 10/08/2024 6:25 AM EDT [facility] BUN 61(H) 7 - 25 mg/dL 10/08/2024 6:25 AM EDT [facility] Creatinine 3.10(H) 0.60 - 1.30 mg/dL 10/08/2024 6:25 AM EDT [facility] Glucose 106(H) 70 - 100 mg/dL 10/08/2024 6:25 AM EDT [facility] Calcium 9.0 8.6 - 10.3 mg/dL 10/08/2024 6:25 AM EDT [facility] Phosphorus 4.0 2.1 - 4.7 mg/dL 10/08/2024 6:25 AM EDT [facility] Albumin 3.5 3.5 - 5.7 g/dL 10/08/2024 6:25 AM EDT [facility] Osmolality, Calculated 298 278 - 305 mOsm/kg 10/08/2024 6:25 AM EDT [facility] EGFR 10/08/2024 6:25 AM EDT [facility] Comment:As of 2021, the estimated [...] MD, PhD LAB BLOOD ORDERABLES Final Result [facility] [address] [place] [address], [facility] * (ABNORMAL) CBC (10/08/2024 5:36 AM EDT) WBC 3.2(L) 3.8 - 10.8 10E3/uL 10/08/2024 6:41 AM EDT [facility] RBC 1.86(L) 4.20 - 5.80 10E6/uL 10/08/2024 6:41 AM EDT [facility] Hemoglobin 6.9(L) 13.2 - 17.1 g/dL 10/08/2024 6:41 AM EDT [facility] Hematocrit 18.9(L) 38.5 - 50.0 % 10/08/2024 6:41 AM EDT [facility] MCV 101.6(H) 80.0 - 100.0 fL 10/08/2024 6:41 AM EDT [facility] MCH 36.9(H) 27.0 - 33.0 pg 10/08/2024 6:41 AM EDT [facility] MCHC 36.3(H) 32.0 - 36.0 g/dL 10/08/2024 6:41 AM EDT [facility] RDW 17.0(H) 11.0 - 15.0 % 10/08/2024 6:41 AM EDT [facility] Platelets 34(L) 140 - 400 10E3/uL 10/08/2024 6:41 AM EDT [facility] Comment: Specimen checked for clots. None detected. Slide Reviewed for PLT Clumps. None Seen. Platelet Estimate Decreased 10/08/2024 6:41 AM EDT [facility] MPV 8.4 7.5 - 11.5 fL 10/08/2024 6:41 AM EDT [facility] Whole Blood 10/08/2024 5:36 AM EDT 10/08/2024 5:53 AM EDT Narrative [facility] - 10/08/2024 6:41 AM EDT Peripheral blood smear was scanned per review criteria approved by the laboratory medical unit secretary. us Eileen Schroeder MD, PhD LAB BLOOD ORDERABLES Final Result [facility] [address] [place] [address], [facility] * Vancomycin, random (10/08/2024 5:36 AM EDT) Vancomycin Random 16.0 ug/mL 10/08/2024 6:20 AM EDT [facility] Comment:Reference range not established for this test. Plasma 10/08/2024 5:36 AM EDT 10/08/2024 5:52 AM EDT us Jodi Ortiz PharmD LAB BLOOD ORDERABLES Final Result Performing Organization Address City/[facility]/ZIP Co de Phone Number [facility] [address] * Urine Drug Confirmation (10/07/2024 10:50 PM EDT) BARBITURATES NOT PRESENT 10/09/2024 1:33 PM EDT [facility] BENZODIAZEPINES PRESENT 1:33 PM EDT [facility] Nordiazepam 3 ng/mL 10/09/2024 1:33 PM EDT [facility] Temazepam 6 ng/mL 10/09/2024 1:33 PM EDT [facility] CANNABINOIDS NOT PRESENT 10/09/2024 1:33 PM EDT [facility] CONCRETE PANEL INSTALLER STIMULANTS NOT PRESENT 1:33 PM EDT [facility] OPIOID ANALGESICS PRESENT 025 1:33 PM EDT [facility] Oxycodone 300 ng/mL 10/09/2024 1:33 PM EDT [facility] Oxymorphone 32 ng/mL 10/09/2024 1:33 PM EDT [facility] Tramadol >1000 ng/mL 10/09/2024 1:33 PM EDT [facility] OPIOID ANTAGONISTS NOT PRESENT 10/09 1:33 PM EDT [facility] SEDATIVES/MUSCLE RELAXANTS NOT PRESENT 10/09/2024 1:33 PM EDT [facility] TRICYCLIC ANTIDEPRESSANTS NOT PRESENT 10/09/2024 1:33 PM EDT [facility] Urine 10/07/2024 10:5 0 PM EDT 10/08/2024 3:00 AM EDT us Gerri Peterson MD URINE ORDERABLES Final Result Performing Organization Address [facility] Co de Phone Number [facility] [address] * Giardia Cryptosporidium Antigens (10/07/2024 10:50 PM EDT) Cryptosporidium Ag Negative Negative 2024 7:59 AM EDT [facility] Giardia Ag Negative Negative 10/08/2024 7:59 AM EDT [facility] Comment: Detection of Giardia and Cryptosporidium antigen is more sensitive and specific than microscopy. Because antigens are shed continuously, repeat testing is rarely warranted. Feces 10/07/2024 10:5 0 PM EDT 10/08/2024 1:53 AM EDT Comment:F Bisi Hernandez DO MICROBIOLOGY - GENERAL ORDERABLE S Final Result [facility] [address] [place] [address], [facility] * (ABNORMAL) Urine Drug Screen Reflex to Confirmation (10/07/2024 10:50 PM EDT) Amphetamine, 500 ng/mL Cutoff Negative Negative 10/08/2024 3:00 AM EDT [facility] Barbiturates UR, 300 ng/mL Cutoff Negative Negative 10/08/2024 3:00 AM EDT [facility] Buprenorphine, 5 ng/mL Cutoff Negative Negative 10/08/2024 3:00 AM EDT [facility] Benzodiazepines UR, 300 ng/mL Cutoff Negative Negative 10/08/2024 3:00 AM EDT [facility] Cocaine UR, 300 ng/mL Cutoff Negative Negative 10/08/2024 3:00 AM EDT [facility] Methadone, UR, 300 ng/mL Cutoff Negative Negative 10/08/2024 3:00 AM EDT [facility] Opiates UR, 300 ng/mL Cutoff Negative Negative 10/08/2024 3:00 AM EDT [facility] Oxycodone, 100 ng/mL Cutoff Presumptive Positive(A) Negative 10/08/2024 3:00 AM EDT [facility] Tricyclic Antidepressants, 300 ng/mL Cutoff Negative Negative 10/08/2024 3:00 AM EDT [facility] Comment:This test has been d eveloped and its performance characteristics determined by [facility] which is certified under the [...] eveloped and its performance characteristics determined by [facility] which is certified under the [...] Gerri Peterson MD URINE ORDERABLES Final Result [facility] [address] [id number], [facility] * Comprehensive Drug Screen (10/07/2024 10:50 [...] Midazolam [facility]CELED [facility] Nordiazepam CANCELED [facility] Oxazepam CANCELED [facility] Temazepam CANCELED [facility] CANNABINOIDS CANCELED [facility] THC-COOH CANCELED [facility] CONCRETE PANEL INSTALLER STIMULANTS CANCELED [facility] Cocaine Metabolite(benzoylec gonine) CANCELED [facility] Amphetamine CANCELED [facility] Methamphetamine CANCELED [facility] MDA CANCELED [facility] MDEA CANCELED [facility] Phencyclindine (PCP) CANCELED [facility] OPIOID ANALGESICS CANCELED [facility] Heroin Metabolite(6-RAMONA) CANCELED [facility] Codeine CANCELED [facility] Morphine CANCELED [facility] Hydrocodone [facility]CELED [facility] Hydromorphone CANCELED [facility] Oxycodone CANCELED [facility] Oxymorphone [facility] Meperidine [facility]CELED [facility] Normeperidine CANCELED [facility] Methadone CANCELED [facility] Methadone Metabolite (EDDP) CANCELED [facility] Tramadol CANCELED [facility] Fentanyl CANCELED [facility] Norfentanyl [facility]ELED [facility] Sufentanil CANCELED [facility] OPIOID ANTAGONISTS CANCELED [facility] Buprenorphine CANCELED [facility] Norbuprenorphine CANCELED [facility] Naltrexone CANCELED [facility] Naloxone [facility]CELED [facility] SEDATIVES/MUSCLE RELAXANTS CANCELED [facility] Carisoprodol CANCELED [facility] Meprobamate [facility] TRICYCLIC ANTIDEPRESSANTS CANCELED [facility] Amitriptyline CANCELED [facility] Clomipramine [facility]ELED [facility] Desipramine [facility] Doxepin CANCELED [facility] Imipramine CANCELED [facility] Nortriptyline CANCELED [facility] Urine Creatinine CANCELED mg/dL [facility] Nitrite CANCELED [facility] Glutaraldehyde CANCELED [facility] pH CANCELED 10/08/2024 7:09 AM EDT [facility] Comment:The released value 5 .6 was canceled by YAQUELIN on 10/08/2024 07:09 Specific [place] CANCELED 10/09/19 7:09 AM EDT [facility] Comment:The released value 1 .009 was canceled by YAQUELIN on 10/08/2024 07:09 Bleach CANCELED [facility] Pyridinium Chlorochromate CANCELED [facility] Urine 10/07/2024 10:5 0 PM EDT 10/08/2024 2:07 AM EDT Narrative [facility] - 10/08/2024 7:09 AM EDT See accn [id number] Gerri Peterson MD URINE ORDERABLES Edited Result - Final Performing Organization Address [facility] Co de Phone Number [facility] [address] [facility] * Ova and Parasite Comprehensive w/ Giardia/Crypto (10/07/2024 10:50 PM EDT) O & P Method: Concentration and Trichrome Stain [facility] Results No Amoeba, Ova, Or Parasites Seen. -- O and P examination of additional specimens is recommended only for symptomatic patients, immunosuppressed patients or those with an appropriate travel history. [facility] Feces FECES / Unknown 10/07/2024 1 0:50 PM EDT 10/08/2024 1:53 AM EDT Comment:F Bisi Hernandez DO MICROBIOLOGY - GENERAL ORDERABLE S Final Result Performing Organization Address [facility] Co de Phone Number [facility] [address] [facility] * Enteric Pathogen Panel (10/07/2024 10:50 PM EDT) Campylobacter Group (C. ecoli, C. jejuni, C. trino) Not Detected Not Detected 10/08/2024 4:40 AM EDT [facility] Salmonella species Not Detected Not Detected 10/08/2024 4:40 AM EDT [facility] Shigella species Not Detected Not Detected 10/08/2024 4:40 AM EDT [facility] Vibrio Group (Vibrio cholerae, Vibrio parahaemolyticus) Not Detected Not Detected 10/08/2024 4:40 AM EDT [facility] Yersinia enterocolitica Not Detected Not Detected 10/08/2024 4:40 AM EDT [facility] Shiga toxin 1 Not Detected Not Detected 10/08/2024 4:40 AM EDT [facility] Shiga toxin 2 Not Detected Not Detected 10/08/2024 4:40 AM EDT [facility] Norovirus Not Detected Not Detected 10/08/2024 4:40 AM EDT [facility] Rotavirus Not Detected Not Detected 10/08/2024 4:40 AM EDT [facility] Comment: The Enteric Pathogen Panel [...] FLUIDS AND STOOLS ORDERABLE S Final Result [facility] [address] [place] [address], [facility] * Hepatitis C Antibody (10/07/2024 6:38 PM EDT) HCV Ab Nonreactive Nonreactive 10/07/2024 7:56 PM EDT [facility] Comment:Health Department no tified in accordance with reportable infectious disease guidelines. Serum 10/07/2024 6:38 PM EDT 10/07/2024 6:52 PM EDT Narrative [facility] - 10/07/2024 7:56 PM EDT Antibodies to HCV not detected; does not exclude the possibility of exposure to HCV. Gerri Peterson MD LAB BLOOD ORDERABLES Final Resu lt Performing Organization Address City/[facility]/ZIP Co de Phone Number [facility] [address] * Hepatitis B Surface Antibody, Quantitati (10/07/2024 6:38 PM EDT) Hep B S Ab Nonreactive Nonreactive 10/07/2024 8:00 PM EDT [facility] HBSAB NUMBER 7.88 0.00 - 7.99 mIU/mL 10/07/2024 8:00 PM EDT [facility] Serum 10/07/2024 6:38 PM EDT 10/07/2024 6:52 PM EDT [facility] - 10/07/2024 8:00 PM EDT Individual is considered not immune to HBV infection. Gerri Peterson MD LAB BLOOD ORDERABLES Final Resu lt Performing Organization Address [facility] Co de Phone Number [facility] [address] [facility]. [address] * Hepatitis B surface antigen (10/07/2024 6:38 PM EDT) Hep B Surface Ag Nonreactive Nonreactive 10/07/2024 7:51 PM EDT [facility] Comment:Health Department no tified in accordance with reportable infectious disease guidelines. Serum 10/07/2024 6:38 PM EDT 10/07/2024 6:52 PM EDT [facility] - 10/07/2024 7:51 PM EDT Specimen is considered negative for HBsAg. Gerri Peterson MD LAB BLOOD ORDERABLES Final Resu lt Performing Organization Address City/[facility] Co de Phone Number [facility] [address] [facility]. [address] * Hepatitis A Antibody Total (10/07/2024 6:38 PM EDT) Anti-HAV Total (IgG + IgM) Nonreactive 10/07/2024 7:53 PM EDT [facility] Serum 10/07/2024 6:38 PM EDT 10/07/2024 6:52 PM EDT Narrative [facility] - 10/07/2024 7:53 PM EDT HAV antibodies not detected Gerri Peterson MD LAB BLOOD ORDERABLES Final Resu lt Performing Organization Address [facility]/ZIP Co de Phone Number [facility] [address] [facility]. [address] * Hepatitis A IgM (10/07/2024 6:38 PM EDT) Hep A IgM Nonreactive Nonreactive 10/07/2024 7:46 PM EDT [facility] Serum 10/07/2024 6:38 PM EDT 10/07/2024 6:52 PM EDT [facility] - 10/07/2024 7:46 PM EDT IgM anti-HAV not detected. Does not exclude the possibility of exposure to or infection with HAV. Levels of IgM anti-HAV may be below the cut-off in early infection. Gerri Peterson MD LAB BLOOD ORDERABLES Final Resu lt Performing Organization Address [facility] Co de Phone Number [facility] [address] * (ABNORMAL) Lipid Profile (10/07/2024 6:37 PM EDT) Non-HDL Cholesterol, Calculated See Note 0 - 129 mg/dL 10/07/2024 7:42 PM EDT [facility] Comment: Desirable: < 130 mg/dL Above Desirable: 130-159 mg/dL Borderline High: 160-189 mg/dL High: 190-219 mg/dL Very High: > 219 mg/dL Unable to calculate result either because contributing result(s) are outside of reportable range or are not available. Cholesterol, Total <25 0 - 200 mg/dL 10/07/2024 7:42 PM EDT [facility] Triglycerides 30 10 - 149 mg/dL 10/07/2024 7:42 PM EDT [facility] HDL 4(L) 60 - 92 [...] Cholesterol See Note mg/dL 7:42 PM EDT [facility] Comment:Unable to calculate result either because contributing result(s) are outside of reportable range or are not available. Plasma 10/07/2024 6:37 PM EDT 10/07/2024 7:06 PM EDT [facility] - 10/07/2024 7:42 PM EDT LDL cholesterol calculated using the Friedewald equation. us Gerri Peterson MD LAB BLOOD ORDERABLES Final Resu lt [facility] [address] [place] [address], [facility] * (ABNORMAL) Alpha 1 Antitrypsin AAT Quant & Mutation (10/07/2024 6:37 PM EDT) A-1 Antitrypsin 99(L) 101 - 187 mg/dL 10/09/2024 4:28 AM EDT [facility] A-1 Antitrypsin Pheno Comment 10/10/2024 4:05 PM EDT [facility] Comment: A1A Phenotype is consistent with a heterozygous phenotype consisting of one M (normal) allele and one allele that cannot be identified at this time. The unknown allele is not consistent with Z (deficient), S (deficient), or F (deficient). MM Phenotype is considered to be normal , producing normal serum levels of omrgd-8-[id number] inhibitor and not associated with clinical disease. [...] PM EDT 10/10/2024 4:08 PM EDT Narrative [facility] - 10/10/2024 4:08 PM EDT PERFORMED AT: [facility] [address] [id number] WICKER WORKER: Bassam Khalil, PhD PHONE: [phone] PERFORMED AT: [facility] [address] [id number] WICKER WORKER: Mandy Abdul MD PHONE: [phone] us Gerri Peterson MD LAB BLOOD ORDERABLES Final Resu lt [facility] [address] * (ABNORMAL) CMV IgG Antibody (10/07/2024 6:37 PM EDT) CMV IgG Positive(A ) Negative 10/07/2024 8:26 PM EDT [facility] CMV IGG NUM 8.40(H) 0.00 - 0.59 U/mL 10/07/2024 8:26 PM EDT [facility] Serum 10/07/2024 6:37 PM EDT 10/07/2024 6:50 PM EDT Gerri Peterson MD LAB BLOOD ORDERABLES Final Resu lt [facility] [address] [facility] * HIV-1 and HIV-2 Antibodies w Reflex (10/07/2024 6:37 PM EDT) HIV 1+2 AB/AGN Nonreactive Nonreactive 10/07/2024 7:54 PM EDT [facility] Serum 10/07/2024 6:37 PM EDT 10/07/2024 7:06 PM EDT Narrative [facility] - 10/07/2024 7:54 PM EDT \HIVRNR Gerri Peterson MD LAB BLOOD ORDERABLES Final Resu lt [facility] [address] [facility] * TSH (Thyroid Stimulating Hormone) (10/07/2024 6:37 PM EDT) TSH 0.81 0.45 - 4.12 uIU/mL 10/07/2024 8:17 PM EDT [facility] Serum 10/07/2024 6:37 PM EDT 10/07/2024 6:50 PM EDT Result [facility] Gerri Peterson MD LAB BLOOD ORDERABLES Final Resu lt [facility] [address] [facility] * Katie-Watkins virus early antigen antibody, IgG (10/07/2024 6:37 PM EDT) EBV Early Antigen Ab, IgG <9.0 0.0 - 8.9 U/mL 10/09/2024 2:16 PM EDT [facility] Comment: Negative < 9.0 Equivocal 9.0 - 10.9 Positive >10.9 Serum Frozen 10/07/2024 6:37 PM EDT 10/09/2024 3:07 PM EDT Narrative [facility] - 10/09/2024 3:07 PM EDT PERFORMED AT: [address] [id number] WICKER WORKER: Bassam Khalil, PhD PHONE: [phone] Gerri Peterson MD LAB BLOOD ORDERABLES Final Resu lt Performing Organization Address [facility] Co de Phone Number [facility] [address] * (ABNORMAL) Varicella zoster antibody, IgG (10/07/2024 6:37 PM EDT) Varicella IgG Positive( A) Negative S/CO 10/07/2024 8:34 PM EDT [facility] Comment:Result indicates the presence of detectable VZV IgG antibodies. A positive result is generally indicative of exposure to the pathogen or administration of specific immunoglobulins, but it is no indication of active infection or stage of disease. This test is not approved for determining vaccine-induced immunity to varicella zoster virus. VZV NUM 6.76(H) 0.00 - 0.99 S/CO 10/07/2024 8:34 PM EDT [facility] Serum 10/07/2024 6:37 PM EDT 10/07/2024 6:50 PM EDT Gerri Peterson MD LAB BLOOD ORDERABLES Final Resu lt Performing Organization Address City/[facility]/ZIP Co de Phone Number [facility] [address] * Toxoplasma gondii antibody, IgG (10/07/2024 6:37 PM EDT) Toxoplasma Gondii IgG <3.0 0.0 - 7.1 IU/mL 10/09/2024 7:53 AM EDT [facility] Comment: Negative <7.2 Equivocal 7.2 - 8.7 Positive >8.7 Serum 10/07/2024 6:37 PM EDT 10/09/2024 8:07 AM EDT Narrative [facility] - 10/09/2024 8:07 AM EDT PERFORMED AT: [facility] [address] [id number] WICKER WORKER: Bassam Khalil, PhD PHONE: [phone] Gerri Peterson MD LAB BLOOD ORDERABLES Final Resu lt Performing Organization Address City/[facility]/ZIP Co de Phone Number [facility] [address] [facility] * Syphilis Screening (Trepia) (10/07/2024 6:37 PM EDT) Treponema Pallidum Negative Negative 10/07/2024 8:27 PM EDT [facility] Comment: No serological evidence of infection with Treponema pallidum (incubating or early primary syphilis cannot be excluded). Serum 10/07/2024 6:37 PM EDT 10/07/2024 6:50 PM EDT Gerri Peterson MD LAB BLOOD ORDERABLES Final Resu lt Performing Organization Address City/[facility]/ZIP Co de Phone Number [facility] [address] [facility] * Strongyloides Ab (10/07/2024 6:37 PM EDT) Strongyloides Ab Negative Negative 10/11/19 11:51 AM EDT [facility] Serum 10/07/2024 6:37 PM EDT 10/10/2024 12:07 PM EDT Narrative [facility] - 10/10/2024 12:07 PM EDT PERFORMED AT: [facility] [address] [id number] WICKER WORKER: Mandy Abdul MD PHONE: [phone] us Gerri Peterson MD LAB BLOOD ORDERABLES Final Resu lt [facility] [address] [place] [address], [facility] * Phosphatidylethanol Confirmation, B (10/07/2024 6:37 PM EDT) PETH 16:0/18.1 (POPETH) <10 Cutoff: 10 ng/mL 10/10/2024 10:42 AM EDT [facility] Comment: Phosphatidylethanol (PEth) homologues result [...] Cutoff: 10 ng/mL 10/10/2024 10:42 AM EDT [facility] Comment: PEth 16:0/18:2 (PLPEth) Reference ranges are not well established PEth Interpretation Negative. 10/10 10:42 AM EDT [facility] Comment: ADDITIONAL INFORMATION This report is intended for use in clinical monitoring and management of patients. It is not intended for use in employment-related testing. This test was developed and its performance characteristics determined by [facility] in a manner consistent with CLIA requirements. This test has not been cleared or approved by the U.S. Food and Drug Administration. Test Performed by: [facility] [id number] [place] [address] Adult Neuropsychologist: Kathy Ortiz Ph.D.; CLIA# [id number] Whole Blood 10/07/2024 6:37 PM EDT 10/10/2024 10:42 AM EDT Gerri Peterson MD LAB BLOOD ORDERABLES Final Resu lt [facility] [address] * (ABNORMAL) MMR(IgG) Panel (Measles, Mumps, Rubella) (10/07/2024 6:37 PM EDT) Mumps IgG Positive 10/07/2024 8:26 PM EDT [facility] MUMPS IGG NUM 77.80(H) 0.0 - 8.9 U/mL 10/07/2024 8:26 PM EDT [facility] Rubella IgG Scr Positive 10/07/2024 8:28 PM EDT [facility] RUB NUM 3.04(H) 0.00 - 0.89 INDEX 10/07/2024 8:28 PM EDT [facility] Rubeola Ab, IgG Positive 10/07/2024 8:26 PM EDT [facility] RUB IGG NUM 192.00(H) 0.00 - 13.40 U/mL 10/07/2024 8:26 PM EDT [facility] Serum 10/07/2024 6:37 PM EDT 10/07/2024 6:50 PM EDT Narrative [facility] - 10/07/2024 8:28 PM EDT [...] MD LAB BLOOD ORDERABLES Final Resu lt [facility] [address] * IgA (10/07/2024 6:37 PM EDT) IgA 227.0 70.0 - 400.0 mg/dL 10/08/2024 11:07 AM EDT [facility] Comment:Please interpret the se findings in conjunction with clinical findings, protein electrophoresis, and immunotyping/immunofixation results. Serum 10/07/2024 6:37 PM EDT 10/07/2024 6:50 PM EDT Result [facility] Gerri Peterson MD LAB BLOOD ORDERABLES Final Resu lt Performing Organization Address City/[facility]/ZIP Co de Phone Number [facility] [address] [facility] * Ethanol, Serum (10/07/2024 6:37 PM EDT) Ethanol <10 0 - 10 mg/dL 10/07/2024 8:36 PM EDT [facility] Serum 10/07/2024 6:37 PM EDT 10/07/2024 6:50 PM EDT Result [facility] Gerri ePterson MD LAB BLOOD ORDERABLES Final Resu lt Performing Organization Address [facility]/ZIP Co de Phone Number [facility] [address] [facility] * ABO/Rh - Second (10/07/2024 6:37 PM EDT) ABO Grouping O 10/07/2024 7:16 PM EDT [facility] Rh Type Positive 10/07/2024 7:16 PM EDT [facility] Blood 10/07/2024 6:37 PM EDT 10/07/2024 6:56 PM EDT Narrative [facility] - 10/07/2024 7:18 PM EDT This is not a duplicate order. It is required that ABO be drawn twice for LIVER TRANSPLANT Result [facility] Gerri Peterson MD BLOOD BANK TEST ORDERABLES Denisse l Result Performing Organization Address City/[facility]/ZIP Co de Phone Number [facility] [address] [facility]. [address] * ABO/Rh- Initial (10/07/2024 6:37 PM EDT) ABO Grouping O 10/07/2024 7:59 PM EDT [facility] Rh Type Positive 10/07/2024 7:59 PM EDT [facility] Blood 10/07/2024 6:37 PM EDT 10/07/2024 7:25 PM EDT Gerri Peterson MD BLOOD BANK TEST ORDERABLES Denisse l Result [facility] [address] [place] [address] * X-ray Mandible minimum 4-views (10/07/2024 [...] EXAM: US ABDOMEN COMPLETE EXAM: US DUPLEX [id number] COMPLETE INDICATION: elevated bilirubin COMPARISON: Ultrasound and [...] EXAM: US ABDOMEN COMPLETE EXAM: US DUPLEX [id number] COMPLETE INDICATION: elevated bilirubin COMPARISON: Ultrasound and [...] 4:26 PM EDT us Bisi Hernandez DO [facility] US ORDERABLES Final Result * US Duplex [id number]-Bfp-[id number] Comp (10/07/2024 3:48 PM EDT) Anatomical Region [...] EXAM: US ABDOMEN COMPLETE EXAM: US DUPLEX [id number] COMPLETE INDICATION: elevated bilirubin COMPARISON: Ultrasound and [...] EXAM: US ABDOMEN COMPLETE EXAM: US DUPLEX [id number] COMPLETE INDICATION: elevated bilirubin COMPARISON: Ultrasound and [...] - 15.1 seconds 10/07/2024 6:55 AM EDT [facility] INR 2.4(H) 0.9 - 1.1 10/07/2024 6:55 AM EDT [facility] Comment: RECOMMENDED THERAPEUTIC RANGES USING INR : Stable oral anticoagulant therapy: 2.0 - 3.0 Mechanical prosthetic heart valve: 2.5 - 3.5 Recurrent acute myocardial infarction: 2.5 - 3.5 Plasma 10/07/2024 6:00 AM EDT 10/07/2024 6:39 AM EDT us Eileen Schroeder MD, PhD LAB BLOOD ORDERABLES Final Result Performing Organization Address City/State/[facility] Co de Phone Number [facility] [address] * (ABNORMAL) Hepatic Function Panel (10/07/2024 6:00 AM EDT) Total Bilirubin 9.7(H) 0.0 - 1.5 mg/dL 10/07/2024 7:10 AM EDT [facility] Bilirubin, Direct 5.21(H) 0.00 - 0.40 mg/dL 10/07/2024 7:10 AM EDT [facility] AST 39 13 - 39 U/L 10/07/2024 7:10 AM EDT [facility] ALT 18 7 - 52 U/L 10/07/2024 7:10 AM EDT [facility] Alkaline Phosphatase 98 36 - 125 U/L 10/07/2024 7:10 AM EDT [facility] Total Protein 4.8(L) 6.4 - 8.9 g/dL 10/07/2024 7:10 AM EDT [facility] Albumin 3.6 3.5 - 5.7 g/dL 10/07/2024 7:10 AM EDT [facility] Bilirubin, Indirect 4.49(H) 0.00 - 1.10 mg/dL 10/07/2024 7:10 AM EDT [facility] Plasma 10/07/2024 6:00 AM EDT 10/07/2024 6:39 AM EDT Eileen Schroeder MD, PhD LAB BLOOD ORDERABLES Final Result Performing Organization Address [facility]/ZIP Co de Phone Number [facility] [address] [facility] * Magnesium (10/07/2024 6:00 AM EDT) Magnesium 1.7 1.5 - 2.5 mg/dL 10/07/2024 7:10 AM EDT [facility] Plasma 10/07/2024 6:00 AM EDT 10/07/2024 6:39 AM EDT Eileen Schroeder MD, PhD LAB BLOOD ORDERABLES Final Result Performing Organization Address [facility] Co de Phone Number [facility] [address] * (ABNORMAL) Renal Function Panel w/EGFR (10/07/2024 6:00 AM EDT) Sodium 132(L) 133 - 146 mmol/L 10/07/2024 7:10 AM EDT [facility] Potassium 3.9 3.5 - 5.3 mmol/L 10/07/2024 7:10 AM EDT [facility] Chloride 103 98 - 110 mmol/L 10/07/2024 7:10 AM EDT [facility] CO2 19(L) 21 - 33 mmol/L 10/07/2024 7:10 AM EDT [facility] Anion Gap 10 3 - 16 mmol/L 10/07/2024 7:10 AM EDT [facility] BUN 64(H) 7 - 25 mg/dL 10/07/2024 7:10 AM EDT [facility] Creatinine 3.38(H) 0.60 - 1.30 mg/dL 10/07/2024 7:10 AM EDT [facility] Glucose 111(H) 70 - 100 mg/dL 10/07/2024 7:10 AM EDT [facility] Calcium 9.1 8.6 - 10.3 mg/dL 10/07/2024 7:10 AM EDT [facility] Phosphorus 4.2 2.1 - 4.7 mg/dL 10/07/2024 7:10 AM EDT [facility] Albumin 3.6 3.5 - 5.7 g/dL 10/07/2024 7:10 AM EDT [facility] Osmolality, Calculated 293 278 - 305 mOsm/kg 10/07/2024 7:10 AM EDT [facility] EGFR 22 10/07/2024 7:10 AM EDT [facility] Comment:As of 2021, the estimated [...] MD, PhD LAB BLOOD ORDERABLES Final Result [facility] [address] [place] [address], [facility] * (ABNORMAL) CBC (10/07/2024 6:00 AM EDT) WBC 3.3(L) 3.8 - 10.8 10E3/uL 10/07/2024 7:55 AM EDT [facility] RBC 2.06(L) 4.20 - 5.80 10E6/uL 10/07/2024 7:55 AM EDT [facility] Hemoglobin 7.4(L) 13.2 - 17.1 g/dL 10/07/2024 7:55 AM EDT [facility] Hematocrit 21.5(L) 38.5 - 50.0 % 10/07/2024 7:55 AM EDT [facility] MCV 104.1(H) 80.0 - 100.0 fL 10/07/2024 7:55 AM EDT [facility] MCH 35.8(H) 27.0 - 33.0 pg 10/07/2024 7:55 AM EDT [facility] MCHC 34.4 32.0 - 36.0 g/dL 10/07/2024 7:55 AM EDT [facility] RDW 17.5(H) 11.0 - 15.0 % 10/07/2024 7:55 AM EDT [facility] Platelets 35(L) 140 - 400 10E3/uL 10/07/2024 7:55 AM EDT [facility] Comment: Specimen checked for clots. None detected. Slide Reviewed for PLT Clumps. None Seen. _Platelet Morphology Normal _Platelets Appear Decreased Platelet Estimate Decreased 10/07/2024 7:55 AM EDT [facility] MPV 8.0 7.5 - 11.5 fL 10/07/2024 7:55 AM EDT [facility] Whole Blood 10/07/2024 6:00 AM EDT 10/07/2024 6:40 AM EDT Narrative [facility] - 10/07/2024 7:55 AM EDT Peripheral blood smear was scanned per review criteria approved by the laboratory medical unit secretary. us Eileen Schroeder MD, PhD LAB BLOOD ORDERABLES Final Result [facility] [address] * AFP Tumor Marker (10/07/2024 6:00 AM EDT) [facility] AFP-Tumor Marker 2.0 0.0 - 9.0 ng/mL 10/07/2024 7:11 AM EDT [facility] Serum 10/07/2024 6:00 AM EDT 10/07/2024 6:39 AM EDT Narrative [facility] - 10/07/2024 7:11 AM EDT The testing method for AFP is a chemiluminescent immunoassay manufactured by [employer] Concentrations of AFP obtained by different assay methods or kits may vary and cannot be used interchangeably. AFP results cannot be interpreted as absolute evidence of the presence or absence of malignant disease. Shila Rivera MD LAB BLOOD ORDERABLES Final Resul t Performing Organization Address City/[facility]/ZIP Co de Phone Number [facility] [address] [facility] * Vancomycin, random (10/07/2024 6:00 AM EDT) [facility] Vancomycin Random 21.1 ug/mL 10/07/2024 7:08 AM EDT [facility] Comment:Reference range not established for this test. Plasma 10/07/2024 6:00 AM EDT 10/07/2024 6:39 AM EDT Kiet Gardiner PharmD LAB BLOOD ORDERABLES Final Re sult [facility] [address] [facility]. [address] * Osmolality (10/06/2024 2:50 PM EDT) [facility] Osmolality, Measured 304 278 - 305 mOsm/kg 10/06/2024 3:49 PM EDT [facility] Serum 10/06/2024 2:50 PM EDT 10/06/2024 2:56 PM EDT Chari Vanegas MD LAB BLOOD ORDERABLES Final Resul t [facility] [address] [place] [address], [facility] * CT Head WO contrast (10/06/2024 1:56 [...] Ur <15 mmol/L 10/06/2024 1:56 PM EDT [facility] Comment:Reference range not established for this test. Urine 10/06/2024 1:25 PM EDT 10/06/2024 1:32 PM EDT Chari Vanegas MD URINE ORDERABLES Final Result Performing Organization Address [facility] de Phone Number [facility] [address] [place] [address] * Potassium, urine, random (10/06/2024 1:25 PM EDT) Potassium Urine Random 50.0 mmol/L 10/06/2024 1:56 PM EDT [facility] Comment:Reference range not established for this test. Urine 10/06/2024 1:25 PM EDT 10/06/2024 1:32 PM EDT Chari Vanegas MD URINE ORDERABLES Final Result Performing Organization Address [facility] de Phone Number [facility] [address] [facility] * Sodium, urine, random (10/06/2024 1:25 PM EDT) Sodium, Ur <10 mmol/L 10/06/2024 1:56 PM EDT [facility] Comment:Reference range not established for this test. Urine 10/06/2024 1:25 PM EDT 10/06/2024 1:32 PM EDT Chari Vanegas MD URINE ORDERABLES Final Result Performing Organization Address [facility]/State/ZIP Co de Phone Number [facility] [address] * Creatinine, Urine, Random (10/06/2024 1:25 PM EDT) Creatinine, Urine 87.40 mg/dL 10/06/2024 1:56 PM EDT [facility] Comment:Reference range not established for this test. Urine 10/06/2024 1:25 PM EDT 10/06/2024 1:32 PM EDT us Chari Vanegas MD URINE ORDERABLES Final Result Performing Organization Address City/[facility]/ZIP Co de Phone Number [facility] [address] [facility]. [address] * Osmolality, Urine (10/06/2024 1:25 PM EDT) Osmolality, Ur 386 50 - 1,200 mOsm/kg 10/06/2024 1:55 PM EDT [facility] Urine 10/06/2024 1:25 PM EDT 10/06/2024 1:32 PM EDT us Chari Vanegas MD URINE ORDERABLES Final Result Performing Organization Address [facility] Co de Phone Number [facility] [address] [place] [facility]. [address] * Urine Drug Confirmation (10/06/2024 11:51 AM EDT) BARBITURATES NOT PRESENT 10/09/2024 3:23 PM EDT [facility] Comment:Results were recheck ed. BENZODIAZEPINES PRESENT 3:23 PM EDT [facility] Nordiazepam 3 ng/mL 10/09/2024 3:23 PM EDT [facility] Comment:Results were recheck ed. Temazepam 8 ng/mL 10/09/2024 3:23 PM EDT [facility] Comment:Results were recheck ed. CANNABINOIDS NOT PRESENT 10/09/2024 3:23 PM EDT [facility] CONCRETE PANEL INSTALLER STIMULANTS NOT PRESENT 3:23 PM EDT [facility] OPIOID ANALGESICS PRESENT 025 3:23 PM EDT [facility] Oxycodone 329 ng/mL 10/09/2024 3:23 PM EDT [facility] Oxymorphone 61 ng/mL 10/09/2024 3:23 PM EDT [facility] Tramadol >1000 ng/mL 10/09/2024 3:23 PM EDT [facility] OPIOID ANTAGONISTS NOT PRESENT 10/09 3:23 PM EDT [facility] SEDATIVES/MUSCLE RELAXANTS NOT PRESENT 10/09/2024 3:23 PM EDT [facility] TRICYCLIC ANTIDEPRESSANTS NOT PRESENT 10/09/2024 3:23 PM EDT [facility] Urine 10/06/2024 11:5 1 AM EDT 10/06/2024 1:13 PM EDT us Bisi Hernandez DO URINE ORDERABLES Final Result Performing Organization Address City/State/[facility] Co de Phone Number [facility] [address] * (ABNORMAL) Urine Drug Screen Reflex to Confirmation (10/06/2024 11:51 AM EDT) Amphetamine, 500 ng/mL Cutoff Negative Negative 10/06/2024 1:13 PM EDT [facility] Barbiturates UR, 300 ng/mL Cutoff Negative Negative 10/06/2024 1:13 PM EDT [facility] Buprenorphine, 5 ng/mL Cutoff Negative Negative 10/06/2024 1:13 PM EDT [facility] Benzodiazepines UR, 300 ng/mL Cutoff Negative Negative 10/06/2024 1:13 PM EDT [facility] Cocaine UR, 300 ng/mL Cutoff Negative Negative 10/06/2024 1:13 PM EDT [facility] Methadone, UR, 300 ng/mL Cutoff Negative Negative 10/06/2024 1:13 PM EDT [facility] Opiates UR, 300 ng/mL Cutoff Negative Negative 10/06/2024 1:13 PM EDT [facility] Oxycodone, 100 ng/mL Cutoff Presumptive Positive(A) Negative 10/06/2024 1:13 PM EDT [facility] Tricyclic Antidepressants, 300 ng/mL Cutoff Negative Negative 10/06/2024 1:13 PM EDT [facility] Comment:This test has been d eveloped and its performance characteristics determined by [facility] which is certified under the [...] Cutoff Negative Negative 10/06/2024 1:13 PM EDT [facility] Comment:This is a screening method only and may be associated with false positive and/or false negative results. Results are not definitive without additional confirmatory testing by mass spectrometry. Fentanyl, 2 ng/mL Cutoff Negative Negative 10/06/2024 1:13 PM EDT [facility] Comment:This test has been d eveloped and its performance characteristics determined by [facility] which is certified under the [...] AM EDT 10/06/2024 11:58 AM EDT Narrative [facility] - 10/06/2024 1:13 PM EDT CONFIRMATION TO FOLLOW Bisi Hernandez DO URINE ORDERABLES Final Result [facility] [address] * Chloride, urine, random (10/06/2024 11:51 AM EDT) Chloride, Ur <15 mmol/L 10/06/2024 1:13 PM EDT [facility] Comment:Reference range not established for this test. Urine 10/06/2024 11:5 1 AM EDT 10/06/2024 11:57 AM EDT us Bisi Hernandez DO URINE ORDERABLES Final Result Performing Organization Address [facility]/ZIP Co de Phone Number [facility] [address] * Potassium, urine, random (10/06/2024 11:51 AM EDT) Potassium Urine Random 49.0 mmol/L 10/06/2024 1:13 PM EDT [facility] Comment:Reference range not established for this test. Urine 10/06/2024 11:5 1 AM EDT 10/06/2024 11:57 AM EDT Bisi Hernandez DO URINE ORDERABLES Final Result Performing Organization Address [facility] Co de Phone Number [facility] [address] * Sodium, urine, random (10/06/2024 11:51 AM EDT) Sodium, Ur <10 mmol/L 10/06/2024 1:13 PM EDT [facility] Comment:Reference range not established for this test. Urine 10/06/2024 11:5 1 AM EDT 10/06/2024 11:57 AM EDT Bisi Hernandez DO URINE ORDERABLES Final Result Performing Organization Address [facility] Co de Phone Number [facility] [address] * Urinalysis w/Rfl to Microscopic (10/06/2024 11:51 AM EDT) Color, UA Yellow Yellow,Straw 10/06/2024 12:25 PM EDT [facility] Clarity, UA Clear Clear 10/06/2024 12:25 PM EDT [facility] Specific [place], UA 1.014 1.005 - 1.035 10/06/2024 12:25 PM EDT [facility] pH, UA 6.0 5.0 - 8.0 10/06/2024 12:25 PM EDT [facility] Protein, UA Negative Negative mg/dL 10/06/2024 12:25 PM EDT [facility] Glucose, UA Negative Negative mg/dL 10/06/2024 12:25 PM EDT [facility] Ketones, UA Negative Negative mg/dL 10/06/2024 12:25 PM EDT [facility] Bilirubin, UA Negative Negative 10/06/2024 12:25 PM EDT [facility] Blood, UA Negative Negative 10/06/2024 12:25 PM EDT [facility] Nitrite, UA Negative Negative 10/06/2024 12:25 PM EDT [facility] Urobilinogen, UA <2.0 0.2 - 1.9 mg/dL 10/06/2024 12:25 PM EDT [facility] Leukocyte Esterase, UA Negative Negative 10/06/2024 12:25 PM EDT [facility] Urine 10/06/2024 11:5 1 AM EDT 10/06/2024 11:57 AM EDT Narrative [facility] - 10/06/2024 12:25 PM EDT Microscopic testing is not performed when the dipstick is negative for blood, leukocyte, protein and nitrite. us Bisi Hernandez DO URINE ORDERABLES Final Result Performing Organization Address [facility] Co de Phone Number [facility] [address] * Lactic Acid, STAT (10/06/2024 7:38 AM EDT) Lactate 0.9 0.5 - 2.2 mmol/L 10/06/2024 8:05 AM EDT [facility] Plasma 10/06/2024 7:38 AM EDT 10/06/2024 7:42 AM EDT us Chari Vanegas MD LAB BLOOD ORDERABLES Final Resul t Performing Organization Address City/[facility] Co de Phone Number [facility] [address] * (ABNORMAL) CBC, STAT (10/06/2024 7:37 AM EDT) WBC 5.6 3.8 - 10.8 10E3/uL 10/06/2024 8:22 AM EDT [facility] RBC 2.50(L) 4.20 - 5.80 10E6/uL 10/06/2024 8:22 AM EDT [facility] Hemoglobin 9.0(L) 13.2 - 17.1 g/dL 10/06/2024 8:22 AM EDT [facility] Hematocrit 25.3(L) 38.5 - 50.0 % 10/06/2024 8:22 AM EDT [facility] MCV 101.2(H) 80.0 - 100.0 fL 10/06/2024 8:22 AM EDT [facility] MCH 36.0(H) 27.0 - 33.0 pg 10/06/2024 8:22 AM EDT [facility] MCHC 35.6 32.0 - 36.0 g/dL 10/06/2024 8:22 AM EDT [facility] RDW 17.7(H) 11.0 - 15.0 % 10/06/2024 8:22 AM EDT [facility] Platelets 52(L) 140 - 400 10E3/uL 10/06/2024 8:22 AM EDT [facility] Comment: Specimen checked for clots. None detected. Slide Reviewed for PLT Clumps. None Seen. MPV 8.2 7.5 - 11.5 fL 10/06/2024 8:22 AM EDT [facility] Whole Blood 10/06/2024 7:37 AM EDT 10/06/2024 7:43 AM EDT us Chari Vanegas MD LAB BLOOD ORDERABLES Final Resul t [facility] [address] [place] [address], [facility] * (ABNORMAL) Comprehensive Metabolic Panel (10/06/2024 7:37 AM EDT) Sodium 129(L) 133 - 146 mmol/L 10/06/2024 8:16 AM EDT [facility] Potassium 4.4 3.5 - 5.3 mmol/L 10/06/2024 8:16 AM EDT [facility] Chloride 100 98 - 110 mmol/L 10/06/2024 8:16 AM EDT [facility] CO2 18(L) 21 - 33 mmol/L 10/06/2024 8:[facility] Anion Gap 11 3 - 16 mmol/L 10/06/2024 8:16 AM T [facility] BUN 62(H) 7 - 25 mg/dL 10/06/2024 8:16 AM T [facility] Creatinine 3.40(H) 0.60 - 1.30 mg/dL 10/06/2024 8:16 AM T [facility] Glucose 98 70 - 100 mg/dL 10/06/2024 8:16 AM T [facility] Calcium 9.5 8.6 - 10.3 mg/dL 10/06/2024 8:16 AM [facility] Total Bilirubin 14.3(H) 0.0 - 1.5 mg/dL 10/06/2024 8:16 AM T [facility] AST 57(H) 13 - 39 U/L 10/06/2024 8:16 AM T [facility] ALT 29 7 - 52 U/L 10/06/2024 8:16 AM [facility] Alkaline Phosphatase 158(H) 36 - 125 U/L 10/06/2024 8:16 AM [facility] Total Protein 5.6(L) 6.4 - 8.9 g/dL 10/06/2024 8:16 AM [facility] Albumin 3.6 3.5 - 5.7 g/dL 10/06/2024 8:16 AM [facility] Osmolality, Calculated 286 278 - 305 mOsm/kg 10/06/2024 8:16 AM [facility] EGFR 22 10/06/2024 8:16 AM [facility] Comment:As of 2021, the estimated [...] MD LAB BLOOD ORDERABLES Final Resul t [facility] [address] [place] [address], [facility] * (ABNORMAL) Venous Blood Gas, Line/Syringe, STAT (10/06/2024 7:37 AM EDT) PH-Line Draw 7.27(L) 7.32 - 7.42 10/06/2024 7:46 AM EDT [facility] PCO2-Line Draw 36(L) 41 - 51 mm Hg 10/06/2024 7:46 AM EDT [facility] PO2-Line Draw 44(H) 25 - 40 mm Hg 10/06/2024 7:46 AM EDT [facility] HCO3-Line Draw 17(L) 24 - 28 mmol/L 10/06/2024 7:46 AM EDT [facility] CO2 Content-Line Draw 18(L) 25 - 29 mmol/L 10/06/2024 7:46 AM EDT [facility] Base Excess-Line Draw -9.6(L) -2.0 - 3.0 mmol/L 10/06/2024 7:46 AM EDT [facility] %HBO2-Line Draw 69.8 40.0 - 70.0 % 10/06/2024 7:46 AM EDT [facility] Carboxyhgb-Ludivina e Draw 0.7 % 10/06/2024 7:46 AM EDT [facility] Comment: CARBOXYHEMOGLOBIN (CO) REFERENCE RANGES: Non-Smokers: <2 % Smokers: <8 % TOXIC: >20 % Methemoglobin- Line Draw 0.3 0.0 - 1.5 % 10/06/2024 7:46 AM EDT [facility] Reduced Hemoglobin-Ludivina e Draw 29.2(H) 0.0 - 5.0 % 10/06/2024 7:46 AM EDT [facility] Venous, Line Draw 10/06/2024 7:37 AM EDT 10/06/2024 7:43 AM EDT Chari Vanegas MD LAB BLOOD ORDERABLES Final Resul t [facility] [address] [place] [address], [facility] * (ABNORMAL) Venous Blood Gas, Line/Syringe, STAT (10/06/2024 4:03 AM EDT) PH-Line Draw 7.21(L) 7.32 - 7.42 10/06/2024 4:16 AM EDT [facility] PCO2-Line Draw 41 41 - 51 mm Hg 10/06/2024 4:16 AM EDT [facility] PO2-Line Draw 32 25 - 40 mm Hg 10/06/2024 4:16 AM EDT [facility] HCO3-Line Draw 16(L) 24 - 28 mmol/L 10/06/2024 4:16 AM EDT [facility] CO2 Content-Line Draw 18(L) 25 - 29 mmol/L 10/06/2024 4:16 AM EDT [facility] Base Excess-Line Draw -10.8(L) -2.0 - 3.0 mmol/L 10/06/2024 4:16 AM EDT [facility] %HBO2-Line Draw 47.5 40.0 - 70.0 % 10/06/2024 4:16 AM EDT [facility] Carboxyhgb-Ludivina e Draw 2.0 % 10/06/2024 4:16 AM EDT [facility] Comment: CARBOXYHEMOGLOBIN (CO) REFERENCE RANGES: Non-Smokers: <2 % Smokers: <8 % TOXIC: >20 % Methemoglobin- Line Draw 0.7 0.0 - 1.5 % 10/06/2024 4:16 AM EDT [facility] Reduced Hemoglobin-Ludivina e Draw 49.8(H) 0.0 - 5.0 % 10/06/2024 4:16 AM EDT [facility] Venous, Line Draw 10/06/2024 4:03 AM EDT 10/06/2024 4:12 AM EDT [facility] LAB BLOOD ORDERABLES Final Resul t Performing Organization Address [facility] de Phone Number [facility] [address] [facility] * (ABNORMAL) Protime-INR (10/06/2024 4:01 AM EDT) Protime 21.3(H) 12.1 - 15.1 seconds 10/06/2024 4:40 AM EDT [facility] INR 1.8(H) 0.9 - 1.1 10/06/2024 4:40 AM EDT [facility] Comment: RECOMMENDED THERAPEUTIC RANGES USING INR : Stable oral anticoagulant therapy: 2.0 - 3.0 Mechanical prosthetic heart valve: 2.5 - 3.5 Recurrent acute myocardial infarction: 2.5 - 3.5 Plasma 10/06/2024 4:01 AM EDT 10/06/2024 4:11 AM EDT [facility] BLOOD ORDERABLES Final Resul t Performing Organization Address [facility] de Phone Number [facility] [address] [facility] * (ABNORMAL) Hepatic Function Panel, AM (10/06/2024 4:01 AM EDT) Total Bilirubin 14.7(H) 0.0 - 1.5 mg/dL 10/06/2024 4:57 AM EDT [facility] Bilirubin, Direct 7.08(H) 0.00 - 0.40 mg/dL 10/06/2024 4:57 AM EDT [facility] AST 60(H) 13 - 39 U/L 10/06/2024 4:57 AM EDT [facility] ALT 31 7 - 52 U/L 10/06/2024 4:57 AM EDT [facility] Alkaline Phosphatase 162(H) 36 - 125 U/L 10/06/2024 4:57 AM EDT [facility] Total Protein 5.3(L) 6.4 - 8.9 g/dL 10/06/2024 4:57 AM EDT [facility] Albumin 3.4(L) 3.5 - 5.7 g/dL 10/06/2024 4:57 AM EDT [facility] Bilirubin, Indirect 7.62(H) 0.00 - 1.10 mg/dL 10/06/2024 4:57 AM EDT [facility] Plasma 10/06/2024 4:01 AM EDT 10/06/2024 4:22 AM EDT [employer] LAB BLOOD ORDERABLES Final Resul t Performing Organization Address City/[facility] de Phone Number [facility] [address] * Magnesium (10/06/2024 4:01 AM EDT) Magnesium 1.8 1.5 - 2.5 mg/dL 10/06/2024 4:57 AM EDT [facility] Plasma 10/06/2024 4:01 AM EDT 10/06/2024 4:22 AM EDT [employer] LAB BLOOD ORDERABLES Final Resul t Performing Organization Address City/[facility] Co de Phone Number [facility] [address] * (ABNORMAL) Renal Function Panel w/EGFR (10/06/2024 4:01 AM EDT) Sodium 129(L) 133 - 146 mmol/L 10/06/2024 4:57 AM EDT [facility] Potassium 4.7 3.5 - 5.3 mmol/L 10/06/2024 4:57 AM EDT [facility] Chloride 100 98 - 110 mmol/L 10/06/2024 4:57 AM EDT [facility] CO2 16(L) 21 - 33 mmol/L 10/06/2024 4:57 AM EDT [facility] Anion Gap 13 3 - 16 mmol/L 10/06/2024 4:57 AM EDT [facility] BUN 61(H) 7 - 25 mg/dL 10/06/2024 4:57 AM EDT [facility] Creatinine 3.49(H) 0.60 - 1.30 mg/dL 10/06/2024 4:57 AM EDT [facility] Glucose 104(H) 70 - 100 mg/dL 10/06/2024 4:57 AM EDT [facility] Calcium 9.2 8.6 - 10.3 mg/dL 10/06/2024 4:57 AM EDT [facility] Phosphorus 5.3(H) 2.1 - 4.7 mg/dL 10/06/2024 4:57 AM EDT [facility] Albumin 3.4(L) 3.5 - 5.7 g/dL 10/06/2024 4:57 AM EDT [facility] Osmolality, Calculated 286 278 - 305 mOsm/kg 10/06/2024 4:57 AM T [facility] EGFR 22 10/06/2024 4:57 AM T [facility] Comment:As of 2021, the estimated [...] DO LAB BLOOD ORDERABLES Final Resul t [facility] [address] * (ABNORMAL) CBC (10/06/2024 4:01 AM EDT) WBC 7.6 3.8 - 10.8 10E3/uL 10/06/2024 5:16 AM EDT [facility] RBC 2.77(L) 4.20 - 5.80 10E6/uL 10/06/2024 5:16 AM EDT [facility] Hemoglobin 10.1(L) 13.2 - 17.1 g/dL 10/06/2024 5:16 AM EDT [facility] Hematocrit 28.4(L) 38.5 - 50.0 % 10/06/2024 5:16 AM EDT [facility] MCV 102.4(H) 80.0 - 100.0 fL 10/06/2024 5:16 AM EDT [facility] MCH 36.4(H) 27.0 - 33.0 pg 10/06/2024 5:16 AM EDT [facility] MCHC 35.5 32.0 - 36.0 g/dL 10/06/2024 5:16 AM EDT [facility] RDW 18.0(H) 11.0 - 15.0 % 10/06/2024 5:16 AM EDT [facility] Platelets 53(L) 140 - 400 10E3/uL 10/06/2024 5:16 AM EDT [facility] Comment:Specimen checked for clots. None detected. MPV 8.4 7.5 - 11.5 fL 10/06/2024 5:16 AM EDT [facility] Whole Blood 10/06/2024 4:01 AM EDT 10/06/2024 4:11 AM EDT us BisiIggliella DO LAB BLOOD ORDERABLES Final Resul t [facility] [address] * Hepatitis C Antibody (10/06/2024 4:01 AM EDT) HCV Ab Nonreactive Nonreactive 10/06/2024 5:12 AM EDT [facility] Comment:Health Department no tified in accordance with reportable infectious disease guidelines. Serum 10/06/2024 4:01 AM EDT 10/06/2024 4:11 AM EDT Narrative [facility] - 10/06/2024 5:12 AM EDT Antibodies to HCV not detected; does not exclude the possibility of exposure to HCV. [employer] LAB BLOOD ORDERABLES Final Resul t Performing Organization Address [facility] Co de Phone Number [facility] [address] [facility] * (ABNORMAL) Hepatitis B Surface Antibody, Quantitati (10/06/2024 4:01 AM EDT) Hep B S Ab Reactive( A) Nonreactive 10/06/2024 5:16 AM EDT [facility] HBSAB NUMBER 11.50(H) 0.00 - 7.99 mIU/mL 10/06/2024 5:16 AM EDT [facility] Serum 10/06/2024 4:01 AM EDT 10/06/2024 4:11 AM EDT [facility] - 10/06/2024 5:16 AM EDT Individual is considered immune to HBV infection. [employer] LAB BLOOD ORDERABLES Final Resul t Performing Organization Address City/[facility]/ZIP Co de Phone Number [facility] [address] [facility] * Hepatitis B surface antigen (10/06/2024 4:01 AM EDT) Hep B Surface Ag Nonreactive Nonreactive 10/06/2024 5:07 AM EDT [facility] Comment:Health Department no tified in accordance with reportable infectious disease guidelines. Serum 10/06/2024 4:01 AM EDT 10/06/2024 4:11 AM EDT [facility] - 10/06/2024 5:07 AM EDT Specimen is considered negative for HBsAg. [employer] LAB BLOOD ORDERABLES Final Resul t Performing Organization Address City/[facility]/ZIP Co de Phone Number [facility] [address] [facility] * Hepatitis A Antibody Total (10/06/2024 4:01 AM EDT) Anti-HAV Total (IgG + IgM) Nonreactive 10/06/2024 5:08 AM EDT [facility] Serum 10/06/2024 4:01 AM EDT 10/06/2024 4:11 AM EDT [facility] - 10/06/2024 5:08 AM EDT HAV antibodies not detected [employer] LAB BLOOD ORDERABLES Final Resul t Performing Organization Address [facility] de Phone Number [facility] [address] [facility] * Hepatitis A IgM (10/06/2024 4:01 AM EDT) Hep A IgM Nonreactive Nonreactive 10/06/2024 5:02 AM EDT [facility] Serum 10/06/2024 4:01 AM EDT 10/06/2024 4:11 AM EDT [facility] - 10/06/2024 5:02 AM EDT IgM anti-HAV not detected. Does not exclude the possibility of exposure to or infection with HAV. Levels of IgM anti-HAV may be below the cut-off in early infection. [employer] LAB BLOOD ORDERABLES Final Resul t Performing Organization Address City/[facility]/ZIP Co de Phone Number [facility] [address] [facility] * (ABNORMAL) Salicylate Level (10/06/2024 4:01 AM EDT) [facility] Salicylate Lvl <3(L) 10 - 30 mg/dL 10/06/2024 4:58 AM EDT [facility] Serum 10/06/2024 4:01 AM EDT 10/06/2024 4:22 AM EDT [facility] [employer] BLOOD ORDERABLES Final Resul t Performing Organization Address [facility] Co de Phone Number [facility] [address] [facility] * AFP Tumor Marker (10/06/2024 4:01 AM EDT) [facility] AFP-Tumor Marker 2.6 0.0 - 9.0 ng/mL 10/06/2024 4:55 AM EDT [facility] Serum 10/06/2024 4:01 AM EDT 10/06/2024 4:22 AM EDT Narrative [facility] - 10/06/2024 4:55 AM EDT The testing method for AFP is a chemiluminescent immunoassay manufactured by [employer] Concentrations of AFP obtained by different assay methods or kits may vary and cannot be used interchangeably. AFP results cannot be interpreted as absolute evidence of the presence or absence of malignant disease. [employer] LAB BLOOD ORDERABLES Final Resul t Performing Organization Address [facility] Co de Phone Number [facility] [address] [facility] * Upper Respiratory Viral/Bacterial Panel-OFFBEARER SEWER PIPE Only (10/06/2024 3:12 AM EDT) [facility] Adenovirus Not Detected Not Detected 10/06/2024 11:38 PM EDT [facility] Coronavirus (229E,HKU1,NL63,OC 43) Not Detected Not Detected 10/06/2024 11:38 PM EDT [facility] SARS-CoV-2 Not Detected Not Detected 10/06/2024 11:38 PM EDT [facility] Human Metapneumovirus Not Detected Not Detected 10/06/2024 11:38 PM EDT [facility] Human Rhinovirus/Enterov irus Not Detected Not Detected 10/06/2024 11:38 PM EDT [facility] Influenza A Not Detected Not Detected 10/06/2024 11:38 PM EDT [facility] Influenza A H1 Not Detected Not Detected 10/06/2024 11:38 PM EDT [facility] Influenza A/H1-2009 Not Detected Not Detected 10/06/2024 11:38 PM EDT [facility] Influenza A H3 Not Detected Not Detected 10/06/2024 11:38 PM EDT [facility] Influenza B Not Detected Not Detected 10/06/2024 11:38 PM EDT [facility] Parainfluenza 1 Not Detected Not Detected 10/06/2024 11:38 PM EDT [facility] Parainfluenza 2 Not Detected Not Detected 10/06/2024 11:38 PM EDT [facility] Parainfluenza 3 Not Detected Not Detected 10/06/2024 11:38 PM EDT [facility] Parainfluenza 4 Not Detected Not Detected 10/06/2024 11:38 PM EDT [facility] Resp. Syncycial Virus A Not Detected Not Detected 10/06/2024 11:38 PM EDT [facility] Resp. Syncycial Virus B Not Detected Not Detected 10/06/2024 11:38 PM EDT [facility] Chlamydia pneumoniae Not Detected Not Detected 10/06/2024 11:38 PM EDT [facility] Mycoplasma pneumoniae Not Detected Not Detected 10/06/2024 11:38 PM EDT [facility] Comment: The Respiratory Viral-Bacterial Panel [...] Test results have been sent to the [facility] in accordance with state requirements. For a fact sheet for healthcare providers, see https://www.fda.gov/media/621781/download. For a fact sheet for patients, see https://www.fda.gov/media/440452/download. Nasopharyngeal Swab NASOPHARYNGEAL SWAB / Unknown 10/06/2024 3:12 AM EDT 10/06/2024 5:41 PM EDT Comment:[employer]BEAR[employer] PIPE Bisi Mary DO BODY FLUIDS AND STOOLS ORDERABLE S Final Result [facility] [address] * X-ray Portable Chest (10/06/2024 1:16 [...] 10/06/2024 2:33 AM EDT us Bisi Hernandez [facility] DI[facility]STIC IMAG[facility] ORDERABLE S Final Result * Phosphatidylethanol Confirmation, B (10/06/2024 1:04 AM EDT) PETH 16:0/18.1 (POPETH) <10 Cutoff: 10 ng/mL 10/10/2024 3:11 AM EDT [facility] Comment: Phosphatidylethanol (PEth) homologues result interpretation [...] Cutoff: 10 ng/mL 10/10/2024 3:11 AM EDT [facility] Comment: PEth 16:0/18:2 (PLPEth) Reference ranges are not well established PEth Interpretation Negative. 10/10 3:11 AM EDT [facility] Comment: ADDITIONAL INFORMATION This report is intended for use in clinical monitoring and management of patients. It is not intended for use in employment-related testing. This test was developed and its performance characteristics determined by [facility] in a manner consistent with CLIA requirements. This test has not been cleared or approved by the U.S. Food and Drug Administration. Test Performed by: [facility] [address] [place] [address] Adult Neuropsychologist: Kathy Ortiz Ph.D.; CLIA# [id number] Whole Blood 10/06/2024 1:04 AM EDT 10/10/2024 3:11 AM EDT [employer] [facility] LAB BLOOD ORDERABLES Final Resul t Performing Organization Address [facility] Co de Phone Number [facility] [address] [place] [address]. [address] * (ABNORMAL) Acetaminophen Level (10/06/2024 1:04 AM EDT) Acetaminophen Level <10(L) 10 - 30 ug/mL 10/06/2024 2:08 AM EDT [facility] Serum 10/06/2024 1:04 AM EDT 10/06/2024 1:30 AM EDT [facility] [facility] LAB BLOOD ORDERABLES Final Resul t Performing Organization Address [facility] Co de Phone Number [facility] [address] [place] [address]. [address] * Ethanol, Serum (10/06/2024 1:04 AM EDT) Ethanol <10 0 - 10 mg/dL 10/06/2024 2:08 AM EDT [facility] Serum 10/06/2024 1:04 AM EDT 10/06/2024 1:30 AM EDT [facility] [facility] LAB BLOOD ORDERABLES Final Resul t Performing Organization Address [facility] Co de Phone Number [facility] [address] [place] [address]. [address] * #2 Blood culture-Peripheral site 2 (10/06/2024 1:04 AM EDT) Culture Result No Growth After 5 Days [facility] Blood BLOOD SPECIMEN / Unknown 10/06/2024 1:04 AM EDT 10/06/2024 4:57 AM EDT Narrative [facility] - 10/11/2024 5:05 AM EDT Suboptimal volume of blood received. Interpret results with caution. Bisi Akana maría MICROBIOLOGY - GENERAL ORDERABLE S Final Result [facility] [address] * #1 Blood culture-Peripheral site 1 (10/06/2024 1:04 AM EDT) Culture Result No Growth After 5 Days [facility] Blood BLOOD SPECIMEN / Unknown 10/06/2024 1:04 AM EDT 10/06/2024 4:57 AM EDT Narrative [facility] - 10/11/2024 5:01 AM EDT Suboptimal volume of blood received. Interpret results with caution. [employer]ana maría MICROBIOLOGY - GENERAL ORDERABLE S Final Result Performing Organization Address City/[facility]/ZIP Co de Phone Number [facility] [address] * Ammonia (10/06/2024 1:04 AM EDT) Ammonia 77 27 - 90 ug/dL 10/06/2024 2:00 AM EDT [facility] Plasma 10/06/2024 1:04 AM EDT 10/06/2024 1:30 AM EDT [employer] LAB BLOOD ORDERABLES Final Resul t Performing Organization Address City/[facility]/ZIP Co de Phone Number [facility] [address] * Thyroid Function [place] (10/06/2024 1:04 AM EDT) TSH 0.84 0.45 - 4.12 uIU/mL 10/06/2024 2:20 AM EDT [facility] Serum 10/06/2024 1:04 AM EDT 10/06/2024 1:39 AM EDT us [employer] [facility] BLOOD ORDERABLES Final Resul t Performing Organization Address [facility] de Phone Number [facility] [address] * (ABNORMAL) Protime-INR (10/06/2024 1:04 AM EDT) Protime 22.8(H) 12.1 - 15.1 seconds 10/06/2024 1:48 AM EDT [facility] INR 1.9(H) 0.9 - 1.1 10/06/2024 1:48 AM EDT [facility] Comment: RECOMMENDED THERAPEUTIC RANGES USING INR : Stable oral anticoagulant therapy: 2.0 - 3.0 Mechanical prosthetic heart valve: 2.5 - 3.5 Recurrent acute myocardial infarction: 2.5 - 3.5 Plasma 10/06/2024 1:04 AM EDT 10/06/2024 1:30 AM EDT [employer] [facility] BLOOD ORDERABLES Final Resul t Performing Organization Address [facility] de Phone Number [facility] [address] [facility] * Lactic Acid, STAT (10/06/2024 1:04 AM EDT) Lactate 1.2 0.5 - 2.2 mmol/L 10/06/2024 1:59 AM EDT [facility] Plasma 10/06/2024 1:04 AM EDT 10/06/2024 1:30 AM EDT [employer] LAB BLOOD ORDERABLES Final Resul t [facility] [address] [place] [address], [facility] * (ABNORMAL) CBC, STAT (10/06/2024 1:04 AM EDT) WBC 7.9 3.8 - 10.8 10E3/uL 10/06/2024 2:36 AM EDT [facility] RBC 2.76(L) 4.20 - 5.80 10E6/uL 10/06/2024 2:36 AM EDT [facility] Hemoglobin 9.9(L) 13.2 - 17.1 g/dL 10/06/2024 2:36 AM EDT [facility] Hematocrit 28.0(L) 38.5 - 50.0 % 10/06/2024 2:36 AM EDT [facility] MCV 101.5(H) 80.0 - 100.0 fL 10/06/2024 2:36 AM EDT [facility] MCH 35.7(H) 27.0 - 33.0 pg 10/06/2024 2:36 AM EDT [facility] MCHC 35.2 32.0 - 36.0 g/dL 10/06/2024 2:36 AM EDT [facility] RDW 17.9(H) 11.0 - 15.0 % 10/06/2024 2:36 AM EDT [facility] Platelets 58(L) 140 - 400 10E3/uL 10/06/2024 2:36 AM EDT [facility] Comment: Specimen checked for clots. None detected. Slide Reviewed for PLT Clumps. None Seen. MPV 8.2 7.5 - 11.5 fL 10/06/2024 2:36 AM EDT [facility] Whole Blood 10/06/2024 1:04 AM EDT 10/06/2024 1:31 AM EDT us Bisi Hernandez DO LAB BLOOD ORDERABLES Final Resul t [facility] [address] [place] [address], [facility] * (ABNORMAL) Comprehensive Metabolic Panel (10/06/2024 1:04 AM ED) Sodium 127(L) 133 - 146 mmol/L 10/06/2024 2:05 AM [facility] Potassium 4.5 3.5 - 5.3 mmol/L 10/06/2024 2:05 AM [facility] Chloride 99 98 - 110 mmol/L 10/06/2024 2:05 AM [facility] CO2 18(L) 21 - 33 mmol/L 10/06/2024 2:05 AM [facility] Anion Gap 10 3 - 16 mmol/L 10/06/2024 2:05 AM [facility] BUN 59(H) 7 - 25 mg/dL 10/06/2024 2:05 AM [facility] Creatinine 3.54(H) 0.60 - 1.30 mg/dL 10/06/2024 2:05 AM [facility] Glucose 116(H) 70 - 100 mg/dL 10/06/2024 2:05 AM [facility] Calcium 9.0 8.6 - 10.3 mg/dL 10/06/2024 2:05 AM [facility] Total Bilirubin 14.8(H) 0.0 - 1.5 mg/dL 10/06/2024 2:05 AM [facility] AST 61(H) 13 - 39 U/L 10/06/2024 2:05 AM [facility] ALT 33 7 - 52 U/L 10/06/2024 2:05 AM [facility] Alkaline Phosphatase 174(H) 36 - 125 U/L 10/06/2024 2:05 AM [facility] Total Protein 5.2(L) 6.4 - 8.9 g/dL 10/06/2024 2:05 AM [facility] Albumin 3.3(L) 3.5 - 5.7 g/dL 10/06/2024 2:05 AM [facility] Osmolality, Calculated 282 278 - 305 mOsm/kg 10/06/2024 2:05 AM [facility] EGFR 21 10/06/2024 2:05 AM [facility] Comment:As of 2021, the estimated [...] DO LAB BLOOD ORDERABLES Final Resul t [facility] [address] documented in this encounter Visit Diagnoses [...] in sodium chloride 0.9 % 250 mL [id number] 1,000 mg, Intravenous, Administer over 60 Minutes, Once, Contact pharmacy if there is a question/concern of whether vancomycin should be given based on serum drug levels. Use [id number] Adapter - Mix Thoroughly Before Administration, Indication? Infection-Suspected, Site of diagnosed infections (select all that apply): Abdominal/Pelvic New Bag 10/08/2024 12:59 PM EDT 1,000 mg 250 mL/hr vancomycin (VANCOCIN) 1,500 mg in sodium chloride 0.9 % 250 mL [id number] 1,500 mg, Intravenous, Administer over 90 Minutes, Once, Contact pharmacy if there is a question/concern of whether vancomycin should be given based on serum drug levels. Use [id number] Adapter - Mix Thoroughly Before Administration, Indication? [...] [id number] (Given - Provider: Chelsy Bush RN) [id number] [...] Sun10/16/24 at 0900 0833 (Given - Provider: nAu Wolff RN) sodium bicarbonate tablet 1,300 mg [...] documented as of this encounter Care Teams Investigation Manager Relationship Specialty Start Date End Date Enedina Mcguire NP [address] [place] [id number] PCP - General Internal Medicine 10/05/24 documented as of this encounter
--- OUTSIDE RECORDS SUMMARY | 2024-10-10 10:36 | XMS_ITS | Encounter Summary ---
Author Organization [facility] Address [facility] [place] [address] Care Team Providers Care Wedger Name Role Phone Enedina Mcguire NP Primary Care Provider [phone] Source Comments This information has been disclosed [...] release of HIV test results or diagnoses. [id number] Health Reason for Visit * Auth/Cert (Routine) Specialty Diagnoses / Procedures Referred By Shane hernadez Referred To Contact General Internal Medicine Diagnoses [facility] [address] [place] [address] Phone: tel: Referral ID Status Reason Start Date Expiration Date Visits Re quested Visits Authorized [id number] 1 1 Encounter Details Date Type Department Care Team (Late st Contact Info) Description 10/10/2024 10:36 AM EDT - 10/10/2024 11:06 AM EDT Surgery [facility] ENDOSCOPY [address] [place] [address] Lino Soto MD [address] [place] [id number] EGD Surgery Details Date/Time Status Location OR Service Patient Class Case Class Case Type Trauma Case? 10/10/2024 10:36 AM Posted ENDOSCOPY E2 Gastroenterology Inpatient EGD/Sm Bowel Panel 1 Procedure LRB Anes Op Region Wound Class Comments EGD N/A MAC (Monitor Ane [facility]) Clean Contaminated Surgeon Surgeon Role Service [...] any time in the past 12 m [facility], were you homeless or living in a half-way (including now)? No 10/06/2024 Yearly Questionnaire Answer [...] Kandy Fuentes - 10/17/2024 10:29 AM EDT [facility] Care Management Discharge Summary Patient name: [...] post discharge: Not Applicable Kandy BAE RN [phone] * William Blount MD - 10/17/2024 8:50 AM EDT [facility] Inpatient Discharge Summary Patient: Julien Gilbert Age: 39 y.o. CSN: [id number] Date of Admission: 10/05/2024 Date of Discharge: [...] Case IDs Date Procedure Surgeon Location Status [id number] 10/10/24 EGD Lino Soto MD ENDOSCOPY Comp [id number] 10/14/24 Left Heart Cath Irving Matta MD [...] at 10/08/2024 1:12 PM EDT US Duplex Mts-Jrn-Sirhegi Comp Final Result IMPRESSION: ABDOMEN 1. Cirrhotic [...] 90 tablet Refills: 0 naloxone 4 mg/actuation [place] Commonly known as: NARCAN Apply 1 spray [...] sent to [facility] [address] [address] Hours: Sunday - Sunday: 8:00AM - 6:00PM FLUoxetine 20 MG capsule lactulose 10 gram/15 mL solution loratadine 10 mg tablet methocarbamoL 500 MG tablet midodrine 10 MG tablet naloxone 4 mg/actuation [place] oxyCODONE 5 MG immediate release tablet Discharge [...] Order Questions: Select Supplement: Boost-1 kcal/ml supplement ([facility] only) As listed above, low sodium diet [...] AM EDT 10/17/2024 naloxone (NARCAN) 4 mg/actuation [place] Apply 1 spray in one nostril if [...] Hughes MD - 10/17/2024 10:23 AM EDT [facility] HEPATOLOGY PROGRESS NOTE Name: Julien Gilbert CSN: [id number] Consulted by: Chelsy Lerner MD Reason for [...] Yes Past Week naloxone (NARCAN) 4 mg/actuation [place] Apply 1 spray in one nostril if [...] nucleated cells, <2000 RBCs 10% Polynuclear, 90% Craig nuc. There were initial reports of gram [...] of chemical dependency treatment as outpatient. - [facility] with no obstructive coronary disease - Psych eval for PTSD With recommendation of sertraline - Given his renal dysfunction, will plan to list for [facility] when he qualifies on 10/22/2024. Labs next week - Plan for d/c today Bobby Sidhu MD Transplant Graphic Coordinator Please see the body of the [...] remains <30 until October 22. Waiting for [facility] today. ASSESSMENT NADIYA on CKD, [...] Staff. Jeremiah Gamino PGY4 Nephrology. Pager no. [phone] Chief Complaint No chief complaint on file. [...] Hypertension, Other hyperlipidemia (07/26/2024), Renal cell carcinoma ([facility]), Thrombocytopenia ([facility]), and Thyroid disease. he has a past [...] at 10/08/2024 1:12 PM EDT US Duplex Gpu-Dqu-Ptmexgv Comp Final Result IMPRESSION: ABDOMEN 1. Cirrhotic [...] no head imaging has been performed at [facility]. -CT Head w/o contrast -Imaging showed [...] Order Questions: Select Supplement: Boost-1 kcal/ml supplement ([facility] only) Code Status: Full Code Signed: WILLIAM BLOUNT MD 10/16/2024, 2:16 PM Cosigned by Chelsy Lerner MD at 10/16/2024 5:38 PM EDT Associated attestation - Chelsy Lerner MD - 10/16/2024 5:38 PM EDT [facility] Medicine Attending Supervision Note [...] another specialty or practice, other licensed professional (PT/OT/LAB AIDE/RT), or a non-medical community professional: Hepatology, Interventional [...] due to positioning during LHC on 10/14. [place] the worst in CVR, but has improved [...] Kumar, DMITRY - 10/16/2024 1:08 PM EDT [facility] Medical Nutrition Therapy Follow-Up Diet Order/Nutrition Support: Regular diet, Boost TID - Vanilla preference Pertinent Information: This is a 39 year old male history of ETOH cirrhosis d/b HE, ascites with SBP who is admitted for AMS. Precipitant of his HE likely SBP. Diagnostic paracentesis at OSH reportedly showed 61 nucleated cells, <2000 RBCs 10% Polynuclear, 90% Craig nuc. There were initial reports of gram [...] Based on CBW of 119.5 kg Kcals/day: 9002-2834 (18-21 kcals/kg) Protein g/day: 119-143 (1-1.2 g/kg) [...] Kumar RD, LD Clinical Dietitian Contact via Appetite+ * Jerad Hughes MD - 10/16/2024 11:03 AM EDT [facility] HEPATOLOGY PROGRESS NOTE Name: Julien Gilbert CSN: [id number] Consulted by: Chelsy Lerner MD Reason for [...] nucleated cells, <2000 RBCs 10% Polynuclear, 90% Craig nuc. There were initial reports of gram [...] of chemical dependency treatment as outpatient. - [facility] with no obstructive coronary disease - Psych eval for PTSD With recommendation of sertraline - Given his renal dysfunction, will plan to list for [facility] when he qualifies on 10/22/2024. - Will follow Bobby Sidhu MD Transplant Graphic Coordinator Please see the body of the [...] Gilbert Date of Admit: 10/05/2024 Referring physician: Chlesy Lerner MD Summary Julien Gilbert is 39 y.o. male with liver cirrhosis, and NADIYA. AMS improved. Transplant evaluation for OLT ongoing. To be eligible for kidney txp- GFR remains <30 until October 22. Waiting for [facility] today. ASSESSMENT NADIYA on CKD, [...] COMMENT on 10/08/2024 Iron%- Iron replete PLAN -[facility] yesterday- patient remains at risk of contrast related injury on top of exisiting NADIYA for 24-48 hrs after contrast load. -He is volume overloaded -patient needs to follow up closely with nephrology after discharge Thank you for allowing us to participate in this patient's care. Discussed with Consult Staff. Jeremiah Gamino PGY4 Nephrology. Pager no. [phone] Chief Complaint No chief complaint on file. [...] at 10/08/2024 1:12 PM EDT US Duplex Iuw-Cjc-Ptkequu Comp Final Result IMPRESSION: ABDOMEN 1. Cirrhotic [...] not tolerate Stress ECHO on 10/09 - [facility] today -Per GI recs, started [...] no head imaging has been performed at [facility]. -CT Head w/o contrast -Imaging showed [...] Order Questions: Select Supplement: Boost-1 kcal/ml supplement ([facility] only) Code Status: Full Code Signed: WILLIAM [...] another specialty or practice, other licensed professional (PT/OT/LAB AIDE/RT), or a non-medical community professional: Hepatology, Interventional [...] due to positioning during LHC on 10/14. [place] the worst in CVR, but has improved [...] of Internal Medicine 10/15/2024 2:36 PM * Jread Hughes MD - 10/15/2024 10:15 AM EDT [facility] HEPATOLOGY PROGRESS NOTE Name: Julien Gilbert CSN: [id number] Consulted by: Chelsy Lerner MD Reason for [...] nucleated cells, <2000 RBCs 10% Polynuclear, 90% Craig nuc. There were initial reports of gram [...] of chemical dependency treatment as outpatient. - [facility] yesterday with no obstructive coronary disease - Psych eval for PTSD and medical management - Given his renal dysfunction, will plan to list for [facility] when he qualifies on 10/22/2024. - Will follow Bobby Sidhu MD Transplant Graphic Coordinator Please see the body of the [...] Quan MD - 10/14/2024 2:34 PM EDT [facility] Department of Cardiovascular Health and Diseases [...] remains <30 until October 22. Waiting for [facility] today. ASSESSMENT NADIYA on CKD, last discharge creatinine 2.4 Baseline Creatinine 1.2-1.3, HRS- NADIYA as no response to holding lasix and albumin UA bland Urine lytes <10/< 15/ 50 Holding lasix give [facility] today Renal Function: Recent Labs [...] Staff. Jeremiah Gamino PGY4 Nephrology. Pager no. [phone] Chief Complaint No chief complaint on file. [...] is Acute kidney injury superimposed on CKD ([facility]). No acute events overnight. Pt with [...] at 10/08/2024 1:12 PM EDT US Duplex Cjg-Efk-Yumqmgg Comp Final Result IMPRESSION: ABDOMEN 1. Cirrhotic [...] not tolerate Stress ECHO on 10/09 - [facility] today -Per GI recs, started [...] no head imaging has been performed at [facility]. -CT Head w/o contrast -Imaging showed [...] never required dialysis. Patient is going for [facility] today and will receive contrast, [...] Order Questions: Select Supplement: Boost-1 kcal/ml supplement ([facility] only) Code Status: Full Code Signed: WILLIAM [...] another specialty or practice, other licensed professional (PT/OT/LAB AIDE/RT), or a non-medical community professional: Hepatology, Interventional [...] Hughes MD - 10/14/2024 7:42 AM EDT [facility] HEPATOLOGY PROGRESS NOTE Name: Julien Gilbert CSN: [id number] Consulted by: Chelsy Lerner MD Reason for [...] nucleated cells, <2000 RBCs 10% Polynuclear, 90% Craig nuc. There were initial reports of gram [...] eval ongoing. Transplant work up ongoing - [facility] today - Transplant nephrology following [...] - Will follow Bobby Sidhu MD Transplant Graphic Coordinator Please see the body of the [...] Staff. Jeremiah Gamino PGY4 Nephrology. Pager no. [phone] Chief Complaint No chief complaint on file. [...] Hughes MD - 10/13/2024 12:33 PM EDT [facility] HEPATOLOGY PROGRESS NOTE Name: Julien Gilbert CSN: [id number] Consulted by: Fouzia Rene MD Reason for [...] nucleated cells, <2000 RBCs 10% Polynuclear, 90% Craig nuc. There were initial reports of gram [...] eval ongoing. Transplant work up ongoing - [facility] today - Transplant nephrology following [...] - Will follow Bobby Sidhu MD Transplant Graphic Coordinator Please see the body of the [...] what will trigger him, like going to [email or web address] to eat wings. 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 Male admitted for Acute kidney injury superimposedon CKD ([facility]) Pt noted to have waxing and [...] kg) Body mass index is 32.07 kg/m??. [place] Body Weight: 202 lbs (91.8 kg) +/- 10% Weight History: Wt Readings from Last 10 Encounters: 10/10/24 (!) 263 lb 8 oz (119.5 kg) 09/05/24 (!) 262 lb 9.6 oz (119.1 kg) 09/02/24 (!) 258 lb (117 kg) 08/17/24 (!) 242 lb 11.2 oz (110.1 kg) 07/28/24 (!) 245 lb (111.1 kg) Estimated Nutrition Needs: Based on CBW of 119.5 kg Kcals/day: 0947-8939 (18-21 kcals/kg) Protein g/day: 119-143 (1-1-2 g/kg) [...] Dietitian - Solid Organ Transplant Contact via DB3 Mobile Chat * Eileen Schroeder MD, PhD - 10/13/2024 8:19 AM EDT Department of Internal Medicine Daily Progress Note Chief Complaint / Reason for Follow-Up Julien Gilbert is a 39 y.o. male on hospital day 8. The principal reason for today's follow up visit is Acute kidney injury superimposed on CKD (CMS-HCC). KARENEON Pt felt well this AM. A&O x [...] at 10/08/2024 1:12 PM EDT US Duplex Lzz-Ylt-Sovbwux Comp Final Result IMPRESSION: ABDOMEN 1. Cirrhotic [...] no head imaging has been performed at [facility]. -CT Head w/o contrast -Imaging showed [...] Order Questions: Select Supplement: Boost-1 kcal/ml supplement ([facility] only) Code Status: Full Code Signed: EILEEN [...] I reviewed the documentation by the medical paper steamer and agree as documented. Any additions or [...] was non-diagnostic due to hypotension. Plan for [facility] today, but now moved to [...] when medically ready. Consider d/c home after [facility] tomorrow. FOUZIA RENE MD Attending Physician Department of Internal Medicine 10/13/2024 Medical Decision Making: // LEVEL 2 MOD One chronic illness with exacerbation, progression, or side effects of treatment Discussed with physician/SAWYER from another specialty or practice, other licensed professional (PT/OT/LAB AIDE/RT), or a non-medical community professional: Nephrology, Hepatology [...] at 10/08/2024 1:12 PM EDT US Duplex Avj-Adn-Wppogbg Comp Final Result IMPRESSION: ABDOMEN 1. Cirrhotic [...] no head imaging has been performed at [facility]. -CT Head w/o contrast -Imaging showed [...] Order Questions: Select Supplement: Boost-1 kcal/ml supplement ([facility] only) Code Status: Full Code Signed: CHARI [...] I reviewed the documentation by the medical paper steamer and agree as documented. Any additions or clarifications are listed below. Daily plan was discussed with patient at bedside and questions addressed. Patient ID: Julien Gilbert is a 39 y.o. male currently admitted for Acute kidney injury superimposed on CKD ([facility]) Supplemental History/ ROS: No acute events [...] for Acute kidney injury superimposed on CKD ([facility]) Active Problems: NADIYA (acute kidney injury) [...] another specialty or practice, other licensed professional (PT/OT/LAB AIDE/RT), or a non-medical community professional: Nephrology, Hepatology [...] tid. cardiac workup pre txp. pLan for [facility] Sunday Liver transplant workup per [...] concern for hepatorenal syndrome.` Patient came from [facility], paracentesis was performed yesterday on [...] 3.3* 3.3* 3.1* 3.1* Recent Labs 10/10/24 0510/11/24 0302 10/12/24 0544 CALCIUM 9.0 8.9 8.5* PHOS 3.3 3.5 4.6 Lab Results Component Value Date IRON 81 10/08/2024 TIBC SEE COMMENT 10/08/2024 FERRITIN 706.9 (H) 10/08/2024 No results found for: [id number] , FOLATE Lab Results Component Value Date [...] CRUR No results found for: MICROALBUR , [id number] In addition to the above an extensive [...] 4.6 10/12/2024 Lab Results Component Value Date GFFS84K 7.1 (L) 10/08/2024 PLAN Monitor renal panel [...] AM Colten Huertas MD, KISHOR LIN, CATHYF baseball sewer hand Div. of Nephrology [facility] E-mail: [email or web address] This note was [...] Rene MD Interval hx No issues. Pending [facility]. Assessment: Renal Function: Cr: 2.77 [...] tid. cardiac workup pre txp. pLan for [facility] Sunday 4. Liver transplant workup per GI/ [...] chief complaint on file. Reason for Consult Naidya on CKD Decompensated cirrhosis History of Present [...] concern for hepatorenal syndrome.` Patient came from [facility], paracentesis was performed yesterday on [...] Laboratory Data and Imaging Recent Labs 10/09/24 04510/10/24 0510/11/24 0302 WBC 4.6 5.1 4.0 HGB [...] 706.9 (H) 10/08/2024 No results found for: XSEQJPWA03 , FOLATE Lab Results Component Value Date [...] CRUR No results found for: MICROALBUR , [id number] In addition to the above an extensive [...] (See Comments) Became Manic Cosigned by Colten Heurtas MD at 10/11/2024 4:11 PM EDT Associated [...] 3.5 10/11/2024 Lab Results Component Value Date QPFV11E 7.1 (L) 10/08/2024 PLAN Monitor renal panel [...] AM Colten Huertas MD, KISHOR LIN FNKF baseball sewer hand Div. of Nephrology [facility] E-mail: [email or web address] This note was [...] superimposed on CKD (CMS-HCC). NAEON Pt felt much better today. A&O [...] at 10/08/2024 1:12 PM EDT US Duplex Dbz-Agn-Yibguhz Comp Final Result IMPRESSION: ABDOMEN 1. Cirrhotic [...] from outside facility. Will engage with them daily([phone]. Ask to speak to a tech) about [...] no head imaging has been performed at [facility]. -CT Head w/o contrast -Imaging showed [...] Order Questions: Select Supplement: Boost-1 kcal/ml supplement ([facility] only) Code Status: Full Code Signed: CHARI [...] I reviewed the documentation by the medical paper steamer and agree as documented. 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 Not a candidate for terlipressin per [...] Ignacio Queen MD Renal Fellow Pager # [phone] Chief Complaint No chief complaint on file. [...] concern for hepatorenal syndrome.` Patient came from [facility], paracentesis was performed yesterday on [...] PHOS -- < > 3.5 3.4 3.3 WJOI43P 7.1* -- -- -- -- < > = values in this interval not displayed. Lab Results Component Value Date IRON 81 10/08/2024 TIBC SEE COMMENT 10/08/2024 FERRITIN 706.9 (H) 10/08/2024 No results found for: RGNFTEQF64 , FOLATE Lab Results Component Value Date [...] CRUR No results found for: MICROALBUR , [id number] In addition to the above an extensive [...] 3.3 10/10/2024 Lab Results Component Value Date PEUU98N 7.1 (L) 10/08/2024 PLAN Continue IV albumin [...] 5:23 AM Colten Huertas MD, KISHOR LIN, FNDeclanF baseball sewer hand Div. of Nephrology [facility] E-mail: [email or web address] This note was completely [...] to follow pt while pt is at [facility]. * Jodi Ortiz PharmD - 10/10/2024 10:27 AM EDT Clinical Pharmacy Service: Vancomycin Consult Progress Note Patient has been transitioned off of vancomycin therapy per team notes and orders. Pharmacy will sign-off at this time, please do not hesitate to consult again as needs arise. Thank you for involving pharmacy in the care of this patient. Jodi Ortiz PharmD Clinical Barrel Drum Cutter, Internal Medicine Preferred contact: DB3 Mobile Secure Chat Clinical Fubavtc-Na-Hmyy Pager: [phone] October 10, 2024 10:27 AM Laboratory Data [...] 10/07/2024 10:50 PM Giardia Cryptosporidium Antigens Final [id number] 10/07/2024 10:50 PM Ova and Parasite Comprehensive w/ Giardia/Crypto Final [id number] Feces 10/06/2024 1:04 AM #2 Blood culture-Peripheral site 2 Preliminary [id number] Peripheral 10/06/2024 1:04 AM #1 Blood culture-Peripheral site 1 Preliminary [id number] Peripheral Pharmacokinetics Lab Results (Last 7 days) Today 522 Yesterday 10/08 0536 Vanc Rdm 16.4 11.0 16.0 * Gerri Peterson MD - 10/10/2024 10:09 AM EDT [facility] HEPATOLOGY PROGRESS NOTE Name: Julien Gilbert CSN: [id number] Consulted by: Fouzia Rene MD Reason for [...] nucleated cells, <2000 RBCs 10% Polynuclear, 90% Craig nuc. Per OSH reports, ascitic fluid cultures [...] to achieving target HR. -cardiology consult for [facility] on Sunday - Transplant nephrology following for [...] from the original note were not included. [facility] Clinical Pharmacy Service: Vancomycin Monitoring Consult Julien [...] in sodium chloride 0.9 % 250 mL Ijzr9Yiv (Completed) 1,500 mg Once 10/09/2024 10/09/2024 Admin Instructions: Contact pharmacy if there is a question/concern of whether vancomycin should begiven based on serum drug levels. Use Scqw1Qxj Adapter - Mix Thoroughly Before Administration Route: Intravenous vancomycin (VANCOCIN) 1,500 mg in sodium chloride 0.9 % 250 mL Pcai5Dfq 1,500 mg Once 10/10/2024 10/11/2024 Admin Instructions: Contact pharmacy if there is a question/concern of whether vancomycin should begiven based on serum drug levels. Use Vuog6Ddj Adapter - Mix Thoroughly Before Administration Route: [...] in sodium chloride 0.9 % 250 mL Syst0Xzk 1,500 mg 166.7 mL/hr 10/08/24 1259 New Bag vancomycin (VANCOCIN) 1,000 mg in sodium chloride 0.9 % 250 mL Xzck2Vud 1,000 mg 250 mL/hr --Objective Data-- Vitals: [...] 53 53 54 Creatinine 2.85 2.89 3.04 [place] body weight: 86.8 kg (191 lb 5.7 oz) Adjusted ideal body weight: 99.9 kg (220 lb 3.5 oz) Estimated CrCl: ~35-45 mL/min --Cultures-- Microbiology Results Date and Time Order Name Sensitivity Status Organisms Specimen ID Source 10/07/2024 10:50 PM Giardia Cryptosporidium Antigens Final [id number] 10/07/2024 10:50 PM Ova and Parasite Comprehensive w/ Giardia/Crypto Final [id number] Feces 10/06/2024 1:04 AM #2 Blood culture-Peripheral site 2 Preliminary [id number] Peripheral 10/06/2024 1:04 AM #1 Blood culture-Peripheral site 1 Preliminary [id number] Peripheral --Vancomycin Concentrations-- Lab Results (Last 7 [...] for the consult. Jodi Ortiz PharmD Clinical Barrel Drum Cutter, Internal Medicine Preferred contact: [employer] Clinical Ibwyneq-Ju-Dqcz Pager: [phone] October 10, 2024 9:13 AM * Eileen Schroeder MD, PhD - 10/10/2024 8:17 AM EDT Department of Internal Medicine Daily Progress Note Chief Complaint / Reason for Follow-Up Julien Gilbert is a 39 y.o. male on hospital day 5. The principal reason for today's follow up visit is Acute kidney injury superimposed on CKD ([facility]). DREW Pt was very conversational today. [...] at 10/08/2024 1:12 PM EDT US Duplex Bqj-Gts-Zoykxws Comp Final Result IMPRESSION: ABDOMEN 1. Cirrhotic [...] from outside facility. Will engage with them daily([phone]. Ask to speak to a tech) about [...] no head imaging has been performed at [facility]. -CT Head w/o contrast -Imaging showed [...] Order Questions: Select Supplement: Boost-1 kcal/ml supplement ([facility] only) Code Status: Full Code Signed: EILEEN [...] I reviewed the documentation by the medical paper steamer and agree as documented. Any additions or clarifications are listed below. Daily plan was discussed with patient at bedside and questions addressed. Patient ID: Julien Gilbert is a 39 y.o. male currently admitted for Acute kidney injury superimposed on CKD ([facility]) Supplemental History/ ROS: No acute events [...] for Acute kidney injury superimposed on CKD ([facility]) Active Problems: Spontaneous Bacterial Peritonitis ([facility]): Cultures from OSH were reported as growing gram-positive organisms. Today, after secondary review, a rep from OSH lab reports that they do not think the Gram+ organisms were seen. He remains afebrile and vital signs have been stable. - He received 4 days of vancomycin. Will d/c today. - Continue ceftriaxone for full days. [facility] Anemia: Multiple contributors. S/p 1 unit PRBC. Hemoglobin responded appropriately and remained stable. Will continue to monitor. Metabolic encephalopathy: Mostly resolved. Likely related to combination of hepatic, metabolic, andpossibly infectious insults. - Continue home lactulose and rifaximin Decompensated cirrhosis ([facility]): Appreciate hepatology consult. He has started his transplant evaluation and will continue while inpatient. - MELD labs daily - Continue home regimen with ursodiol, rifaximin and lactulose - Continue midodrine TID. - Stress test was non-diagnostic due to hypotension. Plan for C on Sunday (10/13) - EGD today - Imaging requiring contrast are on hold until kidney function recovers some. - Due for therapeutic paracentesis. Will discuss with IR. NADIYA (acute kidney injury) on CKD ([facility]): Appreciate nephrology consult. 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 Considering para today, cardiac workup pre txp Liver transplant workup per GI/ Primary team, considering for SLK, seen by renal transplant team Thank you for allowing us to participate in this patient's care. Discussed with Consult Staff. Ignacio Queen MD Renal Fellow Pager # [phone] Chief Complaint No chief complaint on file. [...] concern for hepatorenal syndrome.` Patient came from [facility], paracentesis was performed yesterday on [...] 9.0 9.3 PHOS -- 3.5 3.5 3.4 [id number] 7.1* -- -- -- Lab Results Component Value Date IRON 81 10/08/2024 TIBC SEE COMMENT 10/08/2024 FERRITIN 706.9 (H) 10/08/2024 No results found for: [id number] , FOLATE Lab Results Component Value Date [...] CRUR No results found for: MICROALBUR , [id number] In addition to the above an extensive [...] 3.4 10/09/2024 Lab Results Component Value Date IMYG43V 7.1 (L) 10/08/2024 PLAN Continue IV albumin [...] 1:05 PM Colten Huertas MD, KISHOR LIN, CATHYF baseball sewer hand Div. of Nephrology [facility] E-mail: [email or web address] This note was [...] Peterson MD - 10/09/2024 1:07 PM EDT [facility] HEPATOLOGY PROGRESS NOTE Name: Julien Gilbert CSN: [id number] Consulted by: Fouzia Rene MD Reason for [...] nucleated cells, <2000 RBCs 10% Polynuclear, 90% Craig nuc. Fluid cultures reportedly grew gram + [...] from the original note were not included. [facility] Clinical Pharmacy Service: Vancomycin Monitoring Consult Julien [...] in sodium chloride 0.9 % 250 mL Vddy8Mds (Completed) 1,000 mg Once 10/08/2024 10/08/2024 Admin Instructions: Contact pharmacy if there is a question/concern of whether vancomycin should begiven based on serum drug levels. Use Ugya9Weh Adapter - Mix Thoroughly Before Administration Route: Intravenous vancomycin (VANCOCIN) 1,500 mg in sodium chloride 0.9 % 250 mL Ddta3Ezg 1,500 mg Once 10/09/2024 10/10/2024 Admin Instructions: Contact pharmacy if there is a question/concern of whether vancomycin should begiven based on serum drug levels. Use Hcyr4Ifw Adapter - Mix Thoroughly Before Administration Route: [...] in sodium chloride 0.9 % 250 mL Sudw1Jyg 1,000 mg 250 mL/hr 10/06/24 1413 New Bag vancomycin (VANCOCIN) 2,750 mg in sodium chloride 0.9 % 500 mL IVPB 2,750 mg 200 mL/hr --Objective Data-- Vitals: 10/08/24 2101 10/08/24 2146 10/09/24 0105 10/09/24 0725 BP: 129/74 123/75 115/63 Pulse: 101 99 101 93 Resp: 18 18 Temp: 97.7 ??F (36.5 ??C) [...] 10/07/2024 10:50 PM Giardia Cryptosporidium Antigens Final [id number] 10/07/2024 10:50 PM Ova and Parasite Comprehensive w/ Giardia/Crypto Final [id number] Feces 10/06/2024 1:04 AM #2 Blood culture-Peripheral site 2 Preliminary [id number] Peripheral 10/06/2024 1:04 AM #1 Blood culture-Peripheral site 1 Preliminary [id number] Peripheral --Vancomycin Concentrations-- Lab Results (Last 7 [...] for the consult. Jodi Ortiz PharmD Clinical Barrel Drum Cutter, Internal Medicine Preferred contact: [facility] Wkbubps-Zn-Qick Pager: [phone] October 09, 2024 8:29 AM * Eileen Schroeder MD, PhD - 10/09/2024 8:00 AM EDT Department of Internal Medicine Daily Progress Note Chief Complaint / Reason for Follow-Up Julien Gilbert is a 39 y.o. male on hospital day 4. The principal reason for today's follow up visit is Acute kidney injury superimposed on CKD ([facility]). DREW and father at bedside Pt [...] at 10/08/2024 1:12 PM EDT US Duplex Rax-Bkg-Wjiayiz Comp Final Result IMPRESSION: ABDOMEN 1. Cirrhotic [...] from outside facility. Will engage with them daily([phone]. Ask to speak to a tech) about [...] no head imaging has been performed at [facility]. -CT Head w/o contrast -Imaging showed [...] Order Questions: Select Supplement: Boost-1 kcal/ml supplement ([facility] only) Code Status: Full Code Signed: EILEEN [...] I reviewed the documentation by the medical paper steamer and agree as documented. Any additions or clarifications are listed below. Daily plan was discussed with patient at bedside and questions addressed. Patient ID: Julien Gilbert is a 39 y.o. male currently admitted for Acute kidney injury superimposed on CKD ([facility]) Supplemental History/ ROS: No acute events [...] for Acute kidney injury superimposed on CKD ([facility]) Active Problems: Anemia: S/p 1 unit [...] reflux disease) Anemia SBP (spontaneous bacterial peritonitis) ([facility]) Neck pain with history of cervical [...] another specialty or practice, other licensed professional (PT/OT/LAB AIDE/RT), or a non-medical community professional: Nephrology, Hepatology Labs reviewed (1 pt each): CBC, CMP, INR & other daily labs Review of notes from a different specialty or different practice: Nephrology, Anesthesiology hepatology, * Gerri Peterson MD - 10/08/2024 1:40 PM EDT [facility] HEPATOLOGY PROGRESS NOTE Name: Julien Gilbert CSN: [id number] Consulted by: Fouzia Rene MD Reason for [...] nucleated cells, <2000 RBCs 10% Polynuclear, 90% Craig nuc. Fluid cultures reportedly grew gram + [...] Dr Soto. Recommendations are final following attestation ASKDAX MILAGROS, MD PGY-5 10/08/2024, 1:40 PM [1] Allergies [...] disease (ESRD) patient in a hospital based, [facility] hospital-hospital based, or home setting. -At the [...] I have discussed this plan with the manufacturing coordinator and the liver transplant team. Cosigned [...] from the original note were not included. [facility] Clinical Pharmacy Service: Vancomycin Monitoring Consult Julien [...] in sodium chloride 0.9 % 250 mL Krvh0Cmo 1,000 mg Once 10/08/2024 10/09/2024 Admin Instructions: Contact pharmacy if there is a question/concern of whether vancomycin should begiven based on serum drug levels. Use Feux3Jwx Adapter - Mix Thoroughly Before Administration Route: [...] 10/07/2024 10:50 PM Giardia Cryptosporidium Antigens Final [id number] 10/07/2024 10:50 PM Ova and Parasite Comprehensive w/ Giardia/Crypto In process [id number] Feces 10/06/2024 1:04 AM #2 Blood culture-Peripheral site 2 Preliminary [id number] Peripheral 10/06/2024 1:04 AM #1 Blood culture-Peripheral site 1 Preliminary [id number] Peripheral --Vancomycin Concentrations-- Lab Results (Last 7 [...] for the consult. Jodi Ortiz PharmD Clinical Barrel Drum Cutter, Internal Medicine Preferred contact: [facility] Yorpsqi-Qq-Kdht Pager: [phone] October 08, 2024 9:13 AM * Eileen [...] FREET4 0.74 09/03/2024 Diagnostic Studies US Duplex Tgf-Azs-Gjxcund Comp Final Result IMPRESSION: ABDOMEN 1. Cirrhotic [...] no head imaging has been performed at [facility]. -CT Head w/o contrast -Imaging showed [...] Order Questions: Select Supplement: Boost-1 kcal/ml supplement ([facility] only) Code Status: Full Code Signed: EILEEN [...] I reviewed the documentation by the medical paper steamer and agree as documented. Any additions or [...] tomorrow NADIYA (acute kidney injury) on CKD ([facility]): Appreciate nephrology consult. 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 Discussed with Consult Staff. Ignacio Queen MD Renal Fellow Pager # [phone] Chief Complaint No chief complaint on file. [...] concern for hepatorenal syndrome.` Patient came from [facility], paracentesis was performed yesterday on [...] TIBC , FERRITIN No results found for: HJEXOYOU62 , FOLATE Lab Results Component Value Date [...] <15 No results found for: MICROALBUR , IIVS31VFA In addition to the above an extensive [...] 4.0 10/08/2024 Lab Results Component Value Date AVLY38R 7.1 (L) 10/08/2024 PLAN Continue IV albumin [...] at 10/08/2024 5:36 AM Colten Huertas MD, DELIA, KISHOR, FNKF baseball sewer hand Div. of Nephrology [facility] E-mail: [email or web address] This note was completely [...] from the original note were not included. [facility] Clinical Pharmacy Service: Vancomycin Monitoring Consult Julien [...] AM #2 Blood culture-Peripheral site 2 Preliminary [id number] Peripheral 10/06/2024 1:04 AM #1 Blood culture-Peripheral site 1 Preliminary [id number] Peripheral --Vancomycin Concentrations-- Lab Results (Last 7 [...] for the consult. Jodi Ortiz PharmD Clinical Barrel Drum Cutter, Internal Medicine Preferred contact: [facility] Bhbjslk-Lw-Qwzu Pager: [phone] October 07, 2024 5:01 PM * Yamile [...] Peterson MD - 10/07/2024 11:33 AM EDT [facility] HEPATOLOGY PROGRESS NOTE Name: Julien Gilbert CSN: [id number] Consulted by: Fouzia Rene MD Reason for [...] hyperlipidemia 07/26/2024 Renal cell carcinoma (CMS-HCC) Thrombocytopenia ([facility]) Thyroid disease No past surgical history [...] nucleated cells, <2000 RBCs 10% Polynuclear, 90% Craig nuc. Fluid cultures reportedly grewgram + rods. [...] liver selection meeting and clearance by manager social. 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 Discussed with Consult Staff. Ignacio Queen MD Renal Fellow Pager # [phone] Chief Complaint No chief complaint on file. [...] concern for hepatorenal syndrome.` Patient came from [facility], paracentesis was performed yesterday on [...] TIBC , FERRITIN No results found for: DAFLQLEC65 , FOLATE Lab Results Component Value Date [...] <15 No results found for: MICROALBUR , [id number] In addition to the above an extensive [...] PHOS 4.2 10/07/2024 No results found for: NRDX66R PLAN Continue IV albumin Monitor renal panel [...] 6:00 AM Colten Huertas MD, KISHOR LIN, PETE baseball sewer hand Div. of Nephrology [facility] E-mail: [email or web address] * Carmen Bernal, OT - 10/07/2024 11:09 AM EDT Occupational Therapy Initial Assessment and Discharge Name: Julien Gilbert : 1985 Attending Physician: Fouzia Rene MD Admission Diagnosis: AMS Date: 10/07/2024 [facility] Pertinent [facility] course: Yes Hospital [...] today's follow up visit is Metabolic encephalopathy. KARENYeniMERLINE Pt fully conversational today. A&O x 3. [...] at 10/06/2024 2:33 AM EDT US Duplex Fyr-Hww-Vqzkrpv Comp (Results Pending) US Abdomen Complete (Results [...] no head imaging has been performed at [facility]. -CT Head w/o contrast -Imaging showed [...] Order Questions: Select Supplement: Boost-1 kcal/ml supplement ([facility] only) Code Status: Full Code Signed: EILEEN [...] I reviewed the documentation by the medical paper steamer and agree as documented. Any additions or [...] home lactulose and rifaximin Spontaneous Bacterial Peritonitis ([facility]): Cultures from OSH are growing gram- positive organisms.He is on vancomycin and ceftriaxone for now. Will follow-up on speciation and sensitivities. For now, he is afebrile and his white counts have trended down and mental status is improving. Decompensated cirrhosis ([facility]): Appreciate hepatology consult. He has started his transplant evaluation as an outpatient. We will follow-up with hepatology to discuss any inpatient testing that may need to be needed. - MELD labs daily - Continue home regimen with ursodiol, rifaximin and lactulose NADIYA (acute kidney injury) ([facility]): Appreciate nephrology consult. Likely has hepatorenal [...] kidney disease) stage 4, GFR 15-29 ml/min ([facility]) Metabolic acidosis with normal anion gap [...] another specialty or practice, other licensed professional (PT/OT/LAB AIDE/RT), or a non-medical community professional: Nephrology, Hepatology Labs reviewed (1 pt each): CMP, CBC Test results reviewed (1 pt each): CXR, Head CT Review of notes from a different specialty or different practice: Nephrology, hepatology Use of parenteral controlled substances * Kiet Gardiner, PharmD - 10/06/2024 1:07 PM EDT Images from the original note were not included. [facility] Clinical Pharmacy Service: Vancomycin Monitoring Consult Julien [...] AM #2 Blood culture-Peripheral site 2 Preliminary [id number] Peripheral 10/06/2024 1:04 AM #1 Blood culture-Peripheral site 1 Preliminary [id number] Peripheral --Vancomycin Concentrations-- Lab Results (Last 7 [...] US Retroperitoneal complete (Results Pending) US Duplex Znr-Daf-Kmgntoi Comp (Results Pending) CT Head WO contrast [...] PM EDT Hospital Medicine Attending Supervision Note [facility] // [facility] Julien Gilbert was seen 10/06/24 on [...] Lerner MD - 10/05/2024 2:42 PM EDT [facility] Department of Medicine TRANSFER CALL NOTE Location [facility] ED History of Present Illness Julien Gilbert [...] nearest ED, with plan to transfer to [facility] if needing admission. 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 Chest Pain Symptom Assessment: Asymptomatic 3. Heart Failure: Yes Class II 4. CHSA Clinical Frailty Scale: Mildly Frail Sedation Plan: Moderate Sedation with Local Anesthesia Antibiotic prophylaxis is not indicated. Mani Quan Interventional Commercial Pilot Pager: [phone] [1] Patient Active Problem List Diagnosis Decompensated cirrhosis ([facility]) Acute kidney injury superimposed on CKD ([facility]) Alcohol use disorder Metabolic encephalopathy Hypertension Other hyperlipidemia Thrombocytopenia ([facility]) Renal mass, left Abdominal pain Hypokalemia CKD (chronic kidney disease) stage 4, GFR 15-29 ml/min ([facility]) Metabolic acidosis with normal anion gap and bicarbonate losses GERD (gastroesophageal reflux disease) Hypothyroidism Itching Anemia BRBPR (bright red blood per rectum) SBP (spontaneous bacterial peritonitis) ([facility]) C Diff Diarrhea C. difficile diarrhea Neck pain with history of cervical spinal surgery Cosigned by Irving Matta MD at 10/16/2024 10:54 AM EDT Associated attestation - Irving Matta MD - 10/16/2024 10:54 AM EDT Agree * Gerri Peterson MD - 10/10/2024 10:05 AM EDT [facility] PRE-SEDATION ASSESSMENT, HISTORY & PHYSICAL [...] Patient Active Problem List Diagnosis Decompensated cirrhosis ([facility]) Acute kidney injury superimposed on CKD ([facility]) Alcohol use disorder Metabolic encephalopathy Hypertension Other hyperlipidemia Thrombocytopenia ([facility]) Renal mass, left Abdominal pain Hypokalemia CKD (chronic kidney disease) stage 4, GFR 15-29 ml/min ([facility]) Metabolic acidosis with normal anion gap and bicarbonate losses GERD (gastroesophageal reflux disease) Hypothyroidism Itching Anemia BRBPR (bright red blood per rectum) SBP (spontaneous bacterial peritonitis) ([facility]) C Diff Diarrhea C. difficile diarrhea Neck [...] Low Risk (07/09/2024) Received from [facility] Overall Financial Resource Strain (CARDIA) Difficulty [...] Activity: Unknown (07/14/2024) Received from [facility] Exercise Vital Sign Days of Exercise per Week: Patient unable to answer Minutes of Exercise per Session: Not on file Stress: Patient Unable To Answer (07/14/2024) Received from [facility] [place] of Occupational Health - Occupational Stress Questionnaire Feeling of Stress : Patient unable to answer Social Connections: Patient Unable To Answer (07/14/2024) Received from [facility] Social Connection and Isolation Panel [NHANES] Frequency of Communication with Friends and Family: Patient unable to answer Frequency of Social Gatherings with Friends and Family: Patient unable to answer Attends Alevism Services: Patient unable to answer Active Member [...] folic acid 1 mg Daily 0900 Bisi Hernandez DO 1 mg at 10/09/24 0801 heparin 5,000 Units 3 times per day Bisi Akana maría, DO 5,000 Units at 10/09/24 1306 lactulose [...] values in this interval not displayed. Imaging: @[id number]@ I have personally reviewed the imaging and have noted the following: Large recanalized umbilical vein Perihilar varices Replaced right hepatic artery Splenomegaly Spontaneous splenorenal shunt Large volume ascites, No portal vein thrombosis Assessment/Plan: A 39 y.o. male with ETOH decompensated by ascites, hepatic encephalopathy,bleeding esophageal Varices. Use and allocation of SCD, TOP SCREW, DCD and LDLT allografts discussed in detail. [...] from surgery (5%). I also explained the predatory animal exterminator risks of transplantation and immunosuppression including viral infection and cancer both solid organand lymphoma. Kemar Sahni MD, Fellow, Multiorgan Abdominal Transplant Surgery. [facility]. 10/09/2024 3:16 PM [1] Allergies Allergen [...] wait until that point to txp --- R. Vinita Domínguez III, MD Transplant Surgery (cell) * Neymar Ortiz MD - 10/06/2024 12:00 AM EDT [facility] Internal Medicine - History and Physical [...] taken to Radiology overnight for imaging upload. [facility] performed a bedside paracentesis and sent studies for SBP analysis. Willcontact [facility] to see if labs have resulted. Review of Systems 14 pt ROS conducted and negative aside from that mentioned in above HPI Past Medical and Social History Lives in [place], [place] at bedside Notes that the patient [...] OSH Repeat labs pending on admission to [facility] Assessment & Plan Julien Gilbert is a [...] AM EDT Hospital Medicine Attending Supervision Note [facility] Julien Gilbert was seen 10/06/24 on [...] confusion and lethargy. HE was seen at [facility] ED were CT head unremarkable and RUQ with gallstones, abdominal ascites diagnostic para done and started on empiric CTX. Labs remarkable at OSH for K 4.2 Cl 101 Kezgyg95 BUN 62 (up from baseline) Cr 3.6 [...] another specialty or practice, other licensed professional (PT/OT/LAB AIDE/RT), or a non-medical community professional: ed team [...] ANGIE BLANCHARD MD Attending Physician Division of [facility] Medicine Department of Internal Medicine Pager ID: [phone] 6:04 AM, 10/06/2024 documented in this encounter [...] CNP Vascular & Interventional Radiology 10/10/2024,1:55 PM [facility]: [phone] * Lino Soto MD - 10/10/2024 12:06 PM EDT EGD Brief Op Note Julien Gilbert 10/05/2024 - 10/10/2024 Pre-op Diagnosis: Alcoholic cirrhosis of liver with ascites (CMS-HCC) [K70.31] Post-op Diagnosis: Portal gastropathy, Medium size, non-bleeding esophageal varices Procedure(s): EGD Surgeon(s): Lino Soto MD Anesthesia: MAC (Monitor Anesthesia Care) Staff: Fellow: Gerri Peterson MD Endoscopy Nurse: Kandice Castaneda RN Time Study Engineer: Diana Kemp Estimated Blood Loss: Minimal Specimens: Drains: There were no complications unless listed below. LINO SOTO MD Date: 10/10/2024 Time: 12:18 PM * Lino Soto MD - 10/10/2024 11:48 AM EDT [id number] Procedure Date: 10/10/2024 11:48 AM Patient Name: Julien Gilbert Date of : 1985 Admit Type: Inpatient Age: 39 Gender: Male Note Status: Finalized Attending MD: Lino Soto MD, [id number] Procedure: Upper GI endoscopy Indications: Gastroesopahgeal variceal surveillance Providers: iLno Soto MD, Gerri Peterson MD (Fellow) Referring [...] verified by the physician, the nurse, the chargeback specialist and the energy and conservation technician in the pre-procedure area in the [...] to hypotension Procedure Code(s): --- Professional --- 67259, GC, Esophagogastroduodenoscopy, flexible, transoral; diagnostic, including collection of specimen(s) by brushing or washing, when performed (separate procedure) Diagnosis Code(s): --- Professional --- I85.00, Esophageal varices without bleeding K76.6, Portal hypertension K31.89, Other diseases of stomach and duodenum CPT copyright 2022 [employer]. All rights reserved. The codes documented in this report are preliminary and upon patient liaison review may be revised to meet current [...] 12:10:16 PM Scope Out: 12:17:[address] [place] [address], [id number] * Gill Le RN - 10/09/2024 4:00 [...] time. 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 Has not been on [facility] for mental health since stopping the cymbalta. [...] mother is and his father resides in [facility]. Patient earned a graduate degree and never served in the . 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 He was raised Judaism and denied current engagement in any community [...] or other abnormalities Cognition/Memory: short term and detention memory intact. Attention and concentration: is not [...] from the original note were not included. [facility] General Cardiology Consult Note Referring Physician: [...] at baseline or with provocation, shows no lobbp-xc-dbgx atrial level shunt. - Pulmonary arteries: Systolic [...] 10/13/24, please keep NPO on 10/12/24 at [place] Risks and benefits of new therapies added and new invasive and non-invasive procedures/diagnostic testing planned discussed with and understood by the patient/family who agree with the above plan. Plan discussed with the attending physician Dr. [place]. Recommendations are preliminary until this note is co- signed by the attending. Follow up appointments with Cardiology can be scheduled by calling [phone]. Thank you for the opportunity to participate in this patient's care. Please call orpage with any questions. Leonor Garcia MD Commercial Pilot I have personally seen, examined, reviewed all [...] 0659 10/11/24 0700 - 10/12/24 0659 Shift 5397-6991 1804-1878 24 Hour Total 6285-6532 2774-5836 4554-3597 24 Hour Total INTAKE P.O. 9837 665 6125 P.O. 8594 184 7593 Boost (mL) - [facility] only 240 240 I.V.(mL/kg) 450(3.8) Volume (mL) [...] Other (See Comments) Became Manic * Bakari Jaime Maryuri, COMMUNITY ARTS OFFICER - 10/10/2024 10:07 AM EDT Interventional Radiology [...] Please call with any questions. BAKARI WAHL, COMMUNITY ARTS OFFICER Vascular & Interventional Radiology 10/10/2024,1:54 PM [facility]: [phone]) [1] Social History Tobacco Use Smoking Status [...] EDTAssociated Order(s): IP CONSULT TO INFECTIOUS DISEASES [facility] DEPARTMENT OF INFECTIOUS DISEASE INITIAL NOTE Referring Physician: Fouzia Rene MD Consult Attending: Daria Garcia Patient: Julien Gilbert CSN: [id number] Reason for Consult: CC: Abx management History [...] HE. He was born and raised in [facility] . No travel to the [facility]. 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 [...] Low Risk (07/09/2024) Received from [facility] Overall Financial Resource Strain (CARDIA) Difficulty [...] Activity: Unknown (07/14/2024) Received from [facility] Exercise Vital Sign Days of Exercise per Week: Patient unable to answer Minutes of Exercise per Session: Not on file Stress: Patient Unable To Answer (07/14/2024) Received from [facility] [place] [facility] - Occupational Stress Questionnaire Feeling of Stress : Patient unable to answer Social Connections: Patient Unable To Answer (07/14/2024) Received from [facility] Social Connection and Isolation Panel [NHANES] Frequency of Communication with Friends and Family: Patient unable to answer Frequency of Social Gatherings with Friends and Family: Patient unable to answer Attends Alevism Services: Patient unable to answer Active Member [...] day. Qty: 60 tablet, Refills: 0 Comments: [facility] [place] [address] sodium bicarbonate 650 MG tablet Take 2 [...] Aphasia [R47.01] 10/06/2024 SBP (spontaneous bacterial peritonitis) ([facility]) [K65.2] 09/08/2024 Metabolic acidosis with normal anion gap and bicarbonate losses [E87.20] 09/03/2024 CKD (chronic kidney disease) stage 4, GFR 15-29 ml/min ([facility]) [N18.4] 09/03/2024 GERD (gastroesophageal reflux disease) [K21.9] 09/03/2024 Renal mass, left [N28.89] 08/18/2024 Thrombocytopenia ([facility]) [D69.6] Decompensated cirrhosis ([facility]) [K72.90, K74.60] 07/25/2024 NADIYA (acute kidney injury) ([facility]) [N17.9] 07/25/2024 Resolved Hospital Problems No [...] Signed: Daria Garcia MD 10/08/2024, 9:46 AM [phone] [1] Allergies Allergen Reactions Adhesive Itching and [...] Low Risk (07/09/2024) Received from [facility] Overall Financial Resource Strain (CARDIA) Difficulty [...] Activity: Unknown (07/14/2024) Received from [facility] Exercise Vital Sign Days of Exercise per Week: Patient unable to answer Minutes of Exercise per Session: Not on file Stress: Patient Unable To Answer (07/14/2024) Received from [facility] [place] [facility] - Occupational Stress Questionnaire Feeling of Stress : Patient unable to answer Social Connections: Patient Unable To Answer (07/14/2024) Received from [facility] Social Connection and Isolation Panel [NHANES] Frequency of Communication with Friends and Family: Patient unable to answer Frequency of Social Gatherings with Friends and Family: Patient unable to answer Attends Alevism Services: Patient unable to answer Active Member [...] is no recent study available for direct emvl-zp-lzog comparison. Left Ventricle The left ventricle is [...] 35 mmHgon resting echo from [facility] 07/15/24. No ischemic workup noted. ECG [...] surgery with risk (OLT/OKT) Los Broussard MD, [facility] Department of Anesthesiology [1] Allergies Allergen Reactions Adhesive Itching and Rash Tegaderm adhesive on Ivs, pt states its tolerable Duloxetine Other (See Comments) Became Manic [2] Patient Active Problem List Diagnosis Decompensated cirrhosis ([facility]) NADIYA (acute kidney injury) ([facility]) Alcohol use disorder Metabolic encephalopathy Hypertension Other hyperlipidemia Thrombocytopenia ([facility]) Renal mass, left Abdominal pain Hypokalemia CKD (chronic kidney disease) stage 4, GFR 15-29 ml/min ([facility]) Metabolic acidosis with normal anion gap and bicarbonate losses GERD (gastroesophageal reflux disease) Hypothyroidism Itching Anemia BRBPR (bright red blood per rectum) SBP (spontaneous bacterial peritonitis) ([facility]) C Diff Diarrhea C. difficile diarrhea Aphasia [...] MD PCP: Enedina Mcguire NP Home Pharmacy: [facility] [address] [place] [address], [address] [place] [address] [facility] Aleisha Monterroso [facility] [id number] Issues related to obtaining medications: Payor Information Medical Insurance Coverage: Payor: [facility] / Plan: [facility] GLOBAL / Product Type: *No Producttype* / [...] No Status & Connection to VA Services [place] Status & Connection to VA Services Are [...] confusion and lethargy. HE was seen at [facility] ED were CT head unremarkable and RUQ with gallstones, abdominal ascites diagnostic para done and started on empiric CTX. BSN RN Kiln Pusher Neisha Fuentes met with patient at bedside [...] health concerns or diagnoses. He has used [facility] to aide with his mental health. Patient denies current alcohol misuse, tobacco, and/or drug or illicit substance use. Previously hedid drink alcohol. No history of fdc facility or inpatient rehabilitation facility admissions recently. [...] interest(s) are disclosed as appropriate. Kandy Fuentes [facility] * Gladys Banda, LAB AIDE - 10/07/2024 11:15 AM EDT Speech Language Pathology Speech, Language and Cognitive Initial Assessment Name: Julien Gilbert : 1985 Attending Physician: Fouzia Rene MD Admission Diagnosis: AMS Date: 10/07/2024 Reviewed Pertinent hospital course: Yes Hospital Course LAB AIDE: 39 y/o male with a past medical [...] 2. No intracranial mass effect or hemorrhage. LAB AIDE Hx: 08/15/24: BSE with recs for regular [...] if new needs arise. No further acute LAB AIDE services are warranted for speech, language, or cognition at this time. Plan/Recommendation: - Discharge from LAB AIDE - no acute needs at this time - LAB AIDE at discharge is not recommended Problem List Problem List[1] Past Medical History Past Medical History: Diagnosis Date Alcoholic cirrhosis of liver (CMS-HCC) Alcoholic hepatitis Esophageal varices (CMS-HCC) Hepatorenal syndrome (CMS-HCC) Hypertension Other hyperlipidemia 07/26/2024 Renal cell carcinoma ([facility]) Thrombocytopenia ([facility]) Thyroid disease Past Surgical History No past [...] Primary Mode of Expression: Verbal Primary Language: Chadian Confrontation Naming: Within Functional Limits Word Level [...] Patient educated on: Family educated on;role of LAB AIDE, current POC, and discharge recommendations forSLP therapy Patient response: Patient verbalized understanding;Family demonstrated understanding End of Session: Patient was left in bed with call light within reach and all needs met. Gladys Banda M.A, YUE-LAB AIDE Speech Language Pathologist--Rehab Services [facility] MBSImP Certified Clinician Time Start Time: 1055 Stop Time: 1109 Time Calculation (min): 14 min Charges $Eval Speech Sound Prd w/Lng Comp & Expr: 1 Procedure Patient Class Inpatient [1] Patient Active Problem List Diagnosis Decompensated cirrhosis ([facility]) NADIYA (acute kidney injury) ([facility]) Alcohol use disorder Metabolic encephalopathy Hypertension Other hyperlipidemia Thrombocytopenia ([facility]) Renal mass, left Abdominal pain Hypokalemia CKD (chronic kidney disease) stage 4, GFR 15-29 ml/min ([facility]) Metabolic acidosis with normal anion gap and [...] NAGMA related to diarrhea No 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 Discussed with Consult Staff. Ignacio Queen MD Renal Fellow Pager # [phone] Chief Complaint No chief complaint on file. [...] concern for hepatorenal syndrome.` Patient came from [facility], paracentesis was performed yesterday on [...] TIBC , FERRITIN No results found for: [id number] , FOLATE Lab Results Component Value Date COLORU Yellow 09/03/2024 CLARITYU Cloudy (A) 09/03/2024 PROTEINUA Trace (A) 09/03/2024 PHUR 6.5 09/03/2024 LABSPEC >1.035 (H) 09/03/2024 GLUCOSEU Negative 09/03/2024 BLOODU Negative 09/03/2024 LEUKOCYTESUR Negative 09/03/2024 NITRITE Negative 09/03/2024 BILIRUBINUR Small (A) 09/03/2024 UROBILINOGEN <2.0 09/03/2024 RBCUA 1 09/03/2024 WBCUA 1 09/03/2024 BACTERIA Occasional (A) 09/03/2024 No results for input(s): [place] , RICHIE GRAY in the last 72 hours. Invalid input(s): CO2UR , CRUR No results found for: MICROALBUR , [id number] In addition to the above an extensive [...] 5.3 (H) 10/06/2024 No results found for: [id number] PLAN Patient seen labs reviewed Unclear baseline serum creat Recent episode of acute kidney injury requiring hospitalization Now has mgwv-xe-eues episode of NADIYA Underwent paracentesis 3 days [...] primary team Colten Huertas MD, KISHOR LIN, FNDeclanF baseball sewer hand Div. of Nephrology [facility] E-mail: [email or web address] * Jerad Hughes MD - 10/06/2024 9:28 AM EDTAssociated Order(s): IP CONSULT TO LIVER [facility] HEPATOLOGY CONSULT NOTE Name: Julien Gilbert CSN: [id number] Consulted by: Angie Blanchard MD Reason for Consult: Decompensated Cirrhosis History of Present Illness: Julien Gilbert is a 39 y.o. with history of decompensated EtOH cirrhosis (complicated by EV, HRS, ascites, HE), HTN, and CKD. Patient admitted as transfer from [facility] ED with confusion and lethargy. Diagnostic paracentesis [...] to diarrhea. Patient was recently referred to [facility] for liver transplant evaluation. Patient was evaluated by transplant manager social on 09/25/2024 and it was determined that [...] verbalize understanding. Transported via wheelchair to the [facility] to bepicked up for a lyft. * Dylan Dong RN - 10/14/2024 2:20 PM EDT Pt returned from photo lab manager status post [facility]. Bedside report received from photo lab manager, RN. Pt placed on telemetry, serial vital signs set up. Access site: RRA. Site is soft, no bleeding/hematoma, [address] Sheath removed in photo lab manager at 1402, TR band placed to site [...] monitor closely. Dylan Dong RN * Jes Bowamn RN - 10/10/2024 10:54 PM EDT 1930: [...] EDT Pt arrived with and admitted into [facility] from [facility] with AMS. Hosiptalist paged to the bedside [...] Patient will remain free of falls Goal: [place] Precautions Outcome: Progressing Problem: Daily Care [...] Alcoholic cirrhosis of liver (CMS-HCC), Esophageal varices ([facility]), Hepatorenal syndrome ([facility]), Hypertension, Other hyperlipidemia (07/26/2024), Renal cell carcinoma ([facility]), Thrombocytopenia ([facility]), and Thyroid disease. PCP: Enedina Mcguire NP Home Pharmacy: [facility] [address] [place] [address] [address] [facility] [address] [facility] [id number] Medical Insurance Coverage: Payor: [facility] / Plan: [facility] G[facility]BAL / Product Type: *No Producttype* / Other Pertinent Information RN/CM received update from team and completed chart review. Pt is not medically ready for discharge. Nephrology to see today. Here for pre-transplant work up. Discharge Plan Anticipated discharge plan: home Anticipated discharge date: 10/17/24 CM/SW will continue to follow and remain available for discharge planning needs. Kandy [facility] * Plan of Care - Anu [...] Patient will remain free of falls Goal: [place] Fall Precautions Outcome: Progressing Problem: Daily Care [...] Patient will remain free of falls Goal: [place] Fall Precautions Outcome: Progressing Problem: Daily Care [...] Kandy Fuentes - 10/15/2024 2:26 PM EDT [facility] Case Management/Social Work Department Progress Note Patient Information Patient Name: Julien Gilbert Hospital day: 10 Inpatient/Observation: Inpatient Level of Care: blue Admit date: 10/05/2024 Admission diagnosis: AMS PMH: has a past medical history of Alcoholic cirrhosis of liver (CMS-HCC), Esophageal varices ([facility]), Hepatorenal syndrome ([facility]), Hypertension, Other hyperlipidemia (07/26/2024), Renal cell carcinoma (CMS-HCC), Thrombocytopenia ([facility]), and Thyroid disease. PCP: Enedina Mcguire NP Home Pharmacy: [facility] [place] [address] [address] [facility] [address] [facility] [id number] Medical Insurance Coverage: Payor: [facility] / Plan: [facility] G[facility]BAL / Product Type: *No Producttype* / [...] Patient will remain free of falls Goal: [place] Fall Precautions Outcome: Progressing Problem: Daily Care [...] Kandy Fuentes - 10/14/2024 11:10 AM EDT [facility] Case Management/Social Work Department Progress Note Patient Information Patient Name: Julien Gilbert Hospital day: 9 Inpatient/Observation: Inpatient Level of Care: blue Admit date: 10/05/2024 Admission diagnosis: AMS PMH: has a past medical history of Alcoholic cirrhosis of liver ([facility]), Esophageal varices ([facility]), Hepatorenal syndrome ([facility]), Hypertension, Other hyperlipidemia (07/26/2024), Renal cell carcinoma ([facility]), Thrombocytopenia ([facility]), and Thyroid disease. PCP: Enedina Mcguire NP Home Pharmacy: [facility] [address] [place] [address] [place] [address] [facility] [id number] [facility] [id number] Medical Insurance Coverage: Payor: [facility] / Plan: [facility] / Product Type: *No Producttype* / [...] Kandy Fuentes - 10/13/2024 11:53 AM EDT [facility] Case Management/Social Work Department Progress Note Patient Information Patient Name: Julien Gilbert Hospital day: 8 Inpatient/Observation: Inpatient Level of Care: blue Admit date: 10/05/2024 Admission diagnosis: AMS PMH: has a past medical history of Alcoholic cirrhosis of liver (CMS-HCC), Alcoholic hepatitis, Esophageal varices ([facility]), Hepatorenal syndrome ([facility]), Hypertension, Other hyperlipidemia (07/26/2024), Renal cell carcinoma ([facility]), Thrombocytopenia ([facility]), and Thyroid disease. PCP: Enedina Mcguire NP Home Pharmacy: [facility] [address] [facility] [address] [address] [facility] [address] [facility] [id number] Medical Insurance Coverage: Payor: [facility] / Plan: [facility] / Product Type: *No Producttype* / Other Pertinent Information RN/CM received update from team and completed chart review. Pt is not medically ready for discharge. Patient is going to have left heart cath today. Discharge Plan Anticipated discharge plan: home Anticipated discharge date: 10/14/24 CM/SW will continue to follow and remain available for discharge planning needs. Kandy [facility] * Plan of Care - Gerda Guerra [...] Kandy Fuentes - 10/10/2024 12:00 PM EDT [facility] Case Management/Social Work Department Progress Note [...] disease. PCP: Enedina Mcguire NP Home Pharmacy: [facility] [address] [place], [place] [address] [address] [facility] [address] [facility] [id number] Medical Insurance Coverage: Payor: [facility] / Plan: [facility] / Product Type: *No Producttype* / [...] available for discharge planning needs. Kandy [facility] * Plan of Care - Jodi [...] Patient will remain free of falls Goal: [place] Fall Precautions Outcome: Progressing Problem: Daily Care [...] Patient will remain free of falls Goal: [place] Fall Precautions Outcome: Progressing Problem: Daily Care [...] Kandy Fuentes - 10/09/2024 12:05 PM EDT [facility] Case Management/Social Work Department Progress Note [...] disease. PCP: Enedina Mcguire NP Home Pharmacy: [facility] [place] [facility] [address] [address] [facility] [address] [facility] [id number] Medical Insurance Coverage: Payor: [facility] / Plan: [facility] Modify / Product Type: *No Producttype* / Other [...] Kandy Fuentes - 10/08/2024 3:41 PM EDT [facility] Case Management/Social Work Department Progress Note Patient Information Patient Name: Julien Gilbert Hospital day: 3 Inpatient/Observation: Inpatient Level of Care: blue Admit date: 10/05/2024 Admission diagnosis: AMS PMH: has a past medical history of Alcoholic cirrhosis of liver ([facility]), Alcoholic hepatitis, Esophageal varices (CMS-HCC), Hepatorenal syndrome ([facility]), Hypertension, Other hyperlipidemia (07/26/2024), Renal cell carcinoma ([facility]), Thrombocytopenia ([facility]), and Thyroid disease. PCP: Enedina Mcguire NP Home Pharmacy: [facility] [address] [place] [phone] [facility] [address] [facility] [id number] Medical Insurance Coverage: Payor: [facility] / Plan: [facility] Modify / Product Type: *No Producttype* / Other [...] Kandy Fuentes - 10/07/2024 3:22 PM EDT [facility] Case Management/Social Work Department Progress Note Patient Information Patient Name: Julien Gilbert Hospital day: 2 Inpatient/Observation: Inpatient Level of Care: blue Admit date: 10/05/2024 Admission diagnosis: AMS PMH: has a past medical history of Alcoholic cirrhosis of liver (CMS-HCC), Alcoholic hepatitis, Esophageal varices (CMS-HCC), Hepatorenal syndrome (CMS- HCC), Hypertension, Other hyperlipidemia (07/26/2024), Renal cell carcinoma ([facility]), Thrombocytopenia ([facility]), and Thyroid disease. PCP: Enedina Mcguire NP Home Pharmacy: [address] [address] [facility] [address] [facility] [id number] Medical Insurance Coverage: Payor: [facility] / Plan: [facility] / Product Type: *No Producttype* / [...] Patient will remain free of falls Goal: [place] Fall Precautions Outcome: Progressing Problem: Daily Care [...] IGG ANTIBODY Routine 10/07/2024 6:37 PM EDT [id number] (AAT) QUANTITATION & MUTATION Routine 10/07/2024 6:37 [...] Routine 10/07/2024 6:19 PM EDT US DUPLEX [id number] COMPLETE Routine 10/07/2024 3:48 PM EDT US [...] 10/06/2024 4:01 AM EDT UPPER RESPIRATORY VIRAL/BACTERIAL PANEL-STORE WAREHOUSE ASSOCIATE ONLY Routine 10/06/2024 3:12 AM EDT XR [...] - 146 mmol/L 10/17/2024 7:02 AM EDT [facility] Potassium 3.4(L) 3.5 - 5.3 mmol/L 10/17/2024 7:02 AM EDT [facility] Chloride 104 98 - 110 mmol/L 10/17/2024 7:02 AM EDT [facility] CO2 18(L) 21 - 33 mmol/L 10/17/2024 7:02 AM EDT [facility] Anion Gap 11 3 - 16 mmol/L 10/17/2024 7:02 AM EDT [facility] BUN 54(H) 7 - 25 mg/dL 10/17/2024 7:02 AM EDT [facility] Creatinine 2.88(H) 0.60 - 1.30 mg/dL 10/17/2024 7:02 AM EDT [facility] Glucose 127(H) 70 - 100 mg/dL 10/17/2024 7:02 AM EDT [facility] Calcium 8.2(L) 8.6 - 10.3 mg/dL 10/17/2024 7:02 AM EDT [facility] Phosphorus 4.5 2.1 - 4.7 mg/dL 10/17/2024 7:02 AM EDT [facility] Albumin 3.1(L) 3.5 - 5.7 g/dL 10/17/2024 7:02 AM EDT [facility] Osmolality, Calculated 292 278 - 305 mOsm/kg 10/17/2024 7:02 AM EDT [facility] EGFR 27 10/17/2024 7:02 AM EDT [facility] Comment:As of 2021, the [...] MD, PhD LAB BLOOD ORDERABLES Final Result [facility] [address] [place] [address], [facility] * (ABNORMAL) Protime-INR (10/16/2024 6:31 AM EDT) Protime 22.5(H) 12.1 - 15.1 seconds 10/16/2024 8:04 AM EDT [facility] INR 1.9(H) 0.9 - 1.1 10/16/2024 8:04 AM EDT [facility] Comment: RECOMMENDED THERAPEUTIC RANGES USING INR : Stable oral anticoagulant therapy: 2.0 - 3.0 Mechanical prosthetic heart valve: 2.5 - 3.5 Recurrent acute myocardial infarction: 2.5 - 3.5 Plasma 10/16/2024 6:31 AM EDT 10/16/2024 6:56 AM EDT Eileen Schroeder MD, PhD LAB BLOOD ORDERABLES Final Result Performing Organization Address City/State/[facility] Co de Phone Number [facility] [address] [place] [address], [facility] * (ABNORMAL) Hepatic Function Panel (10/16/2024 6:31 AM EDT) Total Bilirubin 7.6(H) 0.0 - 1.5 mg/dL 10/16/2024 7:24 AM EDT [facility] Bilirubin, Direct 3.97(H) 0.00 - 0.40 mg/dL 10/16/2024 7:24 AM EDT [facility] AST 45(H) 13 - 39 U/L 10/16/2024 7:24 AM EDT [facility] ALT 23 7 - 52 U/L 10/16/2024 7:24 AM EDT [facility] Alkaline Phosphatase 137(H) 36 - 125 U/L 10/16/2024 7:24 AM EDT [facility] Total Protein 5.1(L) 6.4 - 8.9 g/dL 10/16/2024 7:24 AM EDT [facility] Albumin 3.4(L) 3.5 - 5.7 g/dL 10/16/2024 7:24 AM EDT [facility] Bilirubin, Indirect 3.63(H) 0.00 - 1.10 mg/dL 10/16/2024 7:24 AM EDT [facility] Plasma 10/16/2024 6:31 AM EDT 10/16/2024 6:56 AM EDT Eileen Schroeder MD, PhD LAB BLOOD ORDERABLES Final Result [facility] [address] [facility]. [address] * Magnesium (10/16/2024 6:31 AM EDT) Magnesium 2.1 1.5 - 2.5 mg/dL 10/16/2024 7:24 AM EDT [facility] Plasma 10/16/2024 6:31 AM EDT 10/16/2024 6:56 AM EDT us Eileen Schroeder MD, PhD LAB BLOOD ORDERABLES Final Result [facility] [address] * (ABNORMAL) Renal Function Panel w/EGFR (10/16/2024 6:31 AM EDT) Sodium 135 133 - 146 mmol/L 10/16/2024 7:24 AM EDT [facility] Potassium 3.7 3.5 - 5.3 mmol/L 10/16/2024 7:24 AM EDT [facility] Chloride 106 98 - 110 mmol/L 10/16/2024 7:24 AM EDT [facility] CO2 16(L) 21 - 33 mmol/L 10/16/2024 7:24 AM EDT [facility] Anion Gap 13 3 - 16 mmol/L 10/16/2024 7:24 AM EDT [facility] BUN 55(H) 7 - 25 mg/dL 10/16/2024 7:24 AM EDT [facility] Creatinine 3.20(H) 0.60 - 1.30 mg/dL 10/16/2024 7:24 AM EDT [facility] Glucose 121(H) 70 - 100 mg/dL 10/16/2024 7:24 AM EDT [facility] Calcium 8.5(L) 8.6 - 10.3 mg/dL 10/16/2024 7:24 AM EDT [facility] Phosphorus 4.2 2.1 - 4.7 mg/dL 10/16/2024 7:24 AM EDT [facility] Albumin 3.4(L) 3.5 - 5.7 g/dL 10/16/2024 7:24 AM EDT [facility] Osmolality, Calculated 296 278 - 305 mOsm/kg 10/16/2024 7:24 AM EDT [facility] EGFR 24 10/16/2024 7:24 AM EDT [facility] Comment:As of 2021, the [...] MD, PhD LAB BLOOD ORDERABLES Final Result [facility] [address] [place] [address], [facility] * (ABNORMAL) CBC (10/16/2024 6:31 AM EDT) WBC 5.8 3.8 - 10.8 10E3/uL 10/16/2024 8:00 AM EDT [facility] RBC 2.16(L) 4.20 - 5.80 10E6/uL 10/16/2024 8:00 AM EDT [facility] Hemoglobin 7.7(L) 13.2 - 17.1 g/dL 10/16/2024 8:00 AM EDT [facility] Hematocrit 22.1(L) 38.5 - 50.0 % 10/16/2024 8:00 AM EDT [facility] MCV 102.3(H) 80.0 - 100.0 fL 10/16/2024 8:00 AM EDT [facility] MCH 35.7(H) 27.0 - 33.0 pg 10/16/2024 8:00 AM EDT [facility] MCHC 34.9 32.0 - 36.0 g/dL 10/16/2024 8:00 AM EDT [facility] RDW 17.7(H) 11.0 - 15.0 % 10/16/2024 8:00 AM EDT [facility] Platelets 43(L) 140 - 400 10E3/uL 10/16/2024 8:00 AM EDT [facility] Comment: Specimen checked for clots. None detected. Slide Reviewed for PLT Clumps. None Seen. Platelet Estimate Decreased 10/16/2024 8:00 AM EDT [facility] MPV 8.6 7.5 - 11.5 fL 10/16/2024 8:00 AM EDT [facility] Whole Blood 10/16/2024 6:31 AM EDT 10/16/2024 6:57 AM EDT Narrative [facility] - 10/16/2024 8:00 AM EDT Peripheral blood smear was scanned per review criteria approved by the laboratory medical health researcher. us Eileen Schroeder MD, PhD LAB BLOOD ORDERABLES Final Result [facility] [address] [place] [address], [facility] * CARISA Rhythm Strip - Scan (10/15/2024 8:02 PM EDT) us Scanning Uchhim SCAN DOCS - NO RESULTS Final Res ult * CARISA Rhythm Strip - Scan (10/15/2024 8:02 PM EDT) us Scanning Uchhim SCAN DOCS - NO RESULTS Final Res ult * Prepare Platelets, leukoreduced, 1 Units (10/15/2024 6:16 AM EDT) [facility] Product Code P3460Y41 [facility] Unit Number [id number] HCLL Dispense Status Presumed Transfused_PT HCLL Blood Expiration Date [id number] HCLL Coding System [id number] [facility] Blood Bank Product Eleazar Nguyễn MD BLOOD BANK PRODUCT ORDE RABJOSE R Final Result [facility] * Prepare Fresh Frozen Plasma, 1 Units (10/15/2024 6:15 AM EDT) Product Code H2576O15 [facility] Unit Number [id number] [facility]LL Dispense Status Presumed Transfused_PT HCLL Blood Expiration Date HCLL Coding System [id number] [facility] Blood Bank Product Eleazar Nguyễn MD BLOOD BANK PRODUCT ORDE RABJOSE R Final Result Performing Organization Address City/[facility]/ZIP Co de Phone Number HCLL * (ABNORMAL) [...] BLOOD ORDERABLES Final Result Performing Organization Address City/[facility]/ZIP Co de Phone Number [facility] [address] * (ABNORMAL) Hepatic Function Panel (10/15/2024 6:08 AM EDT) Total Bilirubin 7.1(H) 0.0 - 1.5 mg/dL 10/15/2024 6:45 AM EDT [facility] Bilirubin, Direct 3.77(H) 0.00 - 0.40 mg/dL 10/15/2024 6:45 AM EDT [facility] AST 39 13 - 39 U/L 10/15/2024 6:45 AM EDT [facility] ALT 22 7 - 52 U/L 10/15/2024 6:45 AM EDT [facility] Alkaline Phosphatase 115 36 - 125 U/L 10/15/2024 6:45 AM EDT [facility] Total Protein 4.8(L) 6.4 - 8.9 g/dL 10/15/2024 6:45 AM EDT [facility] Albumin 3.2(L) 3.5 - 5.7 g/dL 10/15/2024 6:45 AM EDT [facility] Bilirubin, Indirect 3.33(H) 0.00 - 1.10 mg/dL 10/15/2024 6:45 AM EDT [facility] Plasma 10/15/2024 6:08 AM EDT 10/15/2024 6:17 AM EDT Eileen Schroeder MD, PhD LAB BLOOD ORDERABLES Final Result Performing Organization Address [facility] Co de Phone Number [facility] [address] * Magnesium (10/15/2024 6:08 AM EDT) Magnesium 1.8 1.5 - 2.5 mg/dL 10/15/2024 6:45 AM EDT [facility] Plasma 10/15/2024 6:08 AM EDT 10/15/2024 6:17 AM EDT Eileen Schroeder MD, PhD LAB BLOOD ORDERABLES Final Result Performing Organization Address City/[facility]/ZIP Co de Phone Number [facility] [address] [place] [address], [place] * (ABNORMAL) Renal Function Panel w/EGFR (10/15/2024 6:08 AM EDT) Sodium 135 133 - 146 mmol/L 10/15/2024 6:45 AM EDT [facility] Potassium 3.4(L) 3.5 - 5.3 mmol/L 10/15/2024 6:45 AM EDT [facility] Chloride 107 98 - 110 mmol/L 10/15/2024 6:45 AM EDT [facility] CO2 17(L) 21 - 33 mmol/L 10/15/2024 6:45 AM EDT [facility] Anion Gap 11 3 - 16 mmol/L 10/15/2024 6:45 AM EDT [facility] BUN 55(H) 7 - 25 mg/dL 10/15/2024 6:45 AM EDT [facility] Creatinine 2.88(H) 0.60 - 1.30 mg/dL 10/15/2024 6:45 AM EDT [facility] Glucose 125(H) 70 - 100 mg/dL 10/15/2024 6:45 AM EDT [facility] Calcium 8.4(L) 8.6 - 10.3 mg/dL 10/15/2024 6:45 AM EDT [facility] Phosphorus 3.9 2.1 - 4.7 mg/dL 10/15/2024 6:45 AM EDT [facility] Albumin 3.2(L) 3.5 - 5.7 g/dL 10/15/2024 6:45 AM EDT [facility] Osmolality, Calculated 297 278 - 305 mOsm/kg 10/15/2024 6:45 AM EDT [facility] EGFR 27 10/15/2024 6:45 AM EDT [facility] Comment:As of 2021, the [...] MD, PhD LAB BLOOD ORDERABLES Final Result [facility] [address] [place] [address], [facility] * (ABNORMAL) CBC (10/15/2024 6:08 AM EDT) WBC 4.6 3.8 - 10.8 10E3/uL 10/15/2024 6:51 AM EDT [facility] RBC 1.94(L) 4.20 - 5.80 10E6/uL 10/15/2024 6:51 AM EDT [facility] Hemoglobin 7.1(L) 13.2 - 17.1 g/dL 10/15/2024 6:51 AM EDT [facility] Hematocrit 19.6(L) 38.5 - 50.0 % 10/15/2024 6:51 AM EDT [facility] MCV 100.8(H) 80.0 - 100.0 fL 10/15/2024 6:51 AM EDT [facility] MCH 36.7(H) 27.0 - 33.0 pg 10/15/2024 6:51 AM EDT [facility] MCHC 36.4(H) 32.0 - 36.0 g/dL 10/15/2024 6:51 AM EDT [facility] RDW 17.3(H) 11.0 - 15.0 % 10/15/2024 6:51 AM EDT [facility] Platelets 34(L) 140 - 400 10E3/uL 10/15/2024 6:51 AM EDT [facility] Comment:Specimen checked for clots. None detected. MPV 8.7 7.5 - 11.5 fL 10/15/2024 6:51 AM EDT [facility] Whole Blood 10/15/2024 6:08 AM EDT 10/15/2024 6:17 AM EDT us Eileen Schroeder MD, PhD LAB BLOOD ORDERABLES Final Result Performing Organization Address [facility] de Phone Number [facility] [address] [place] [address] * PRA-HLA Ab Screen (Cytotoxic) (10/15/2024 6:08 AM EDT) [facility] The request and specimen(s) for this test have been received and transported to the [facility] at [address] [place] [address]. The [facility] will report results directly to the client. 10/15/2024 6:42 AM EDT [facility] Comment:The request and spec imen(s) for this test have been received and transported to the [facility] at [address] [place] [address]. The [facility] will report results directly to the client. Serum 10/15/2024 6:08 AM EDT 10/15/2024 6:42 AM EDT us Cosmo Pacheco MD LAB BLOOD ORDERABLES Final Resul t Performing Organization Address [facility] de Phone Number [facility] [address] [place] [address] * LEFT HEART CATH (10/14/2024 2:09 PM EDT) 10/14/2024 11:4 7 AM EDT Narrative [facility] - 10/14/2024 9:27 PM EDT *[facility]* Cardiac Barn Operator [address] [place] [address] CATHETERIZATION LAB STUDY Patient: Julien Glibert Age: 39 Study Date: 10/14/2024 Gender: M [...] manner. 3. Right radial artery access. A [id number] Glidesheath - Slender - .021 sheath was [...] + + !LV pressure s/d, ed !112, dP/kv=1855yl Hg/s! + + + !Aortic pressure s/d (m)!106/58 (75) ! + + + ATTESTATION: Dr. Matta was present for the entire procedure. Dr. Jay Quan was the initial author of this report. Prepared and electronically signed by Irving Matta MD [id number] Procedure Note Irving Matta MD - 10/14/2024 *[facility]* Cardiac Barn Operator [address] [place] [address] CATHETERIZATION LAB STUDY Patient: Julien Gilbert Age: [...] manner. 3. Right radial artery access. A [id number] Glidesheath - Slender - .021sheath was advanced [...] complications. Contrast: Omnipaque 350 25ml (total dose). Fohxtntzq683 125ml (wasted). Radiation: Fluoroscopy time: 15min. Total [...] + !LV pressure s/d, ed !, 22, dP/vv=3106ek Hg/s! + + + !Aortic pressure s/d (m)!106/58 (75) ! + + + ATTESTATION: Dr. Matta was present for the entire procedure. Dr. Jay Quan wasthe initial author of this report. Prepared and electronically signed by Irving Matta MD [id number] [place] [id number] Final Result [facility] * Transfuse Fresh Frozen Plasma Transfusion Rate: Per dept routine (10/14/2024 2:08 PM EDT) us Eleazar Nguyễn MD NURSING TREATMENT ORDER PAL - BLOOD ADMIN Final Result EXTERNAL * Transfuse Fresh Frozen Plasma Transfusion Rate: Per dept routine, 1 Units (10/14/2024 2:08 PM EDT) us Eleazar Nguyễn MD NURSING TREATMENT ORDER PAL - BLOOD ADMIN Final Result Performing Organization Address City/[facility]/ZIP Co de Phone Number EXTERNAL * Transfuse Platelets Transfusion Rate: Per dept routine (10/14/2024 12:43 PM EDT) us Eleazar Nguyễn MD NURSING TREATMENT ORDER PAL - BLOOD ADMIN Final Result Performing Organization Address City/[facility]/ZIP Co de Phone Number EXTERNAL * Transfuse Platelets Transfusion Rate: Per dept routine, 1 Units (10/14/2024 12:43 PM EDT) us Eleazar Nguyễn MD NURSING TREATMENT ORDER PAL - BLOOD ADMIN Final Result Performing Organization Address City/[facility]/ZIP Co de Phone Number EXTERNAL * Antibody Screen (10/14/2024 8:21 AM EDT) [facility] Antibody Screen Negative 10/14/2024 9:11 AM EDT [facility] Blood 10/14/2024 8:21 AM EDT 10/14/2024 8:33 AM EDT Narrative [facility] - 10/14/2024 9:26 AM EDT Testing performed by [facility] Transfusion Service us Eleazar Nguyễn MD BLOOD BANK TEST ORDERAB LES Final Result [facility] [address] [place] [address], [facility] * ABO/Rh (10/14/2024 8:21 AM EDT) ABO Grouping O 10/14/2024 8:55 AM EDT [facility] Rh Type Positive 10/14/2024 8:55 AM EDT [facility] Blood 10/14/2024 8:21 AM EDT 10/14/2024 8:33 AM EDT us Eleazar Nguyễn MD BLOOD BANK TEST ORDERAB LES Final Result Performing Organization Address [facility] Co de Phone Number [facility] [address] * (ABNORMAL) Protime-INR (10/14/2024 2:53 AM EDT) Protime 23.8(H) 12.1 - 15.1 seconds 10/14/2024 4:34 AM EDT [facility] INR 2.1(H) 0.9 - 1.1 10/14/2024 4:34 AM EDT [facility] Comment: RECOMMENDED THERAPEUTIC RANGES USING INR : Stable oral anticoagulant therapy: 2.0 - 3.0 Mechanical prosthetic heart valve: 2.5 - 3.5 Recurrent acute myocardial infarction: 2.5 - 3.5 Plasma 10/14/2024 2:53 AM EDT 10/14/2024 4:16 AM EDT us Eileen Schroeder MD, PhD LAB BLOOD ORDERABLES Final Result Performing Organization Address [facility] Co de Phone Number [facility] [address] [facility] * (ABNORMAL) Hepatic Function Panel (10/14/2024 2:53 AM EDT) Total Bilirubin 7.2(H) 0.0 - 1.5 mg/dL 10/14/2024 4:45 AM EDT [facility] Bilirubin, Direct 3.86(H) 0.00 - 0.40 mg/dL 10/14/2024 4:45 AM EDT [facility] AST 41(H) 13 - 39 U/L 10/14/2024 4:45 AM EDT [facility] ALT 22 7 - 52 U/L 10/14/2024 4:45 AM EDT [facility] Alkaline Phosphatase 119 36 - 125 U/L 10/14/2024 4:45 AM EDT [facility] Total Protein 4.6(L) 6.4 - 8.9 g/dL 10/14/2024 4:45 AM EDT [facility] Albumin 3.3(L) 3.5 - 5.7 g/dL 10/14/2024 4:45 AM EDT [facility] Bilirubin, Indirect 3.34(H) 0.00 - 1.10 mg/dL 10/14/2024 4:45 AM EDT [facility] Plasma 10/14/2024 2:53 AM EDT 10/14/2024 4:16 AM EDT Eileen Schroeder MD, PhD LAB BLOOD ORDERABLES Final Result [facility] [address] * Magnesium (10/14/2024 2:53 AM EDT) Magnesium 1.9 1.5 - 2.5 mg/dL 10/14/2024 4:45 AM EDT [facility] Plasma 10/14/2024 2:53 AM EDT 10/14/2024 4:16 AM EDT Eileen Schroeder MD, PhD LAB BLOOD ORDERABLES Final Result [facility] [address] * (ABNORMAL) Renal Function Panel w/EGFR (10/14/2024 2:53 AM EDT) Sodium 136 133 - 146 mmol/L 10/14/2024 4:45 AM EDT [facility] Potassium 3.5 3.5 - 5.3 mmol/L 10/14/2024 4:45 AM EDT [facility] Chloride 107 98 - 110 mmol/L 10/14/2024 4:45 AM EDT [facility] CO2 16(L) 21 - 33 mmol/L 10/14/2024 4:45 AM EDT [facility] Anion Gap 13 3 - 16 mmol/L 10/14/2024 4:45 AM EDT [facility] BUN 55(H) 7 - 25 mg/dL 10/14/2024 4:45 AM EDT [facility] Creatinine 3.01(H) 0.60 - 1.30 mg/dL 10/14/2024 4:45 AM EDT [facility] Glucose 95 70 - 100 mg/dL 10/14/2024 4:45 AM EDT [facility] Calcium 8.5(L) 8.6 - 10.3 mg/dL 10/14/2024 4:45 AM EDT [facility] Phosphorus 4.4 2.1 - 4.7 mg/dL 10/14/2024 4:45 AM EDT [facility] Albumin 3.3(L) 3.5 - 5.7 g/dL 10/14/2024 4:45 AM EDT [facility] Osmolality, Calculated 297 278 - 305 mOsm/kg 10/14/2024 4:45 AM EDT [facility] EGFR 26 10/14/2024 4:[facility]:As of 2021, the [...] MD, PhD LAB BLOOD ORDERABLES Final Result [facility] [address] [place] [address], [facility] * (ABNORMAL) CBC (10/14/2024 2:53 AM EDT) WBC 5.5 3.8 - 10.8 10E3/uL 10/14/2024 5:00 AM EDT [facility] RBC 2.09(L) 4.20 - 5.80 10E6/uL 10/14/2024 5:00 AM EDT [facility] Hemoglobin 7.6(L) 13.2 - 17.1 g/dL 10/14/2024 5:00 AM EDT [facility] Hematocrit 21.3(L) 38.5 - 50.0 % 10/14/2024 5:00 AM EDT [facility] MCV 101.7(H) 80.0 - 100.0 fL 10/14/2024 5:00 AM EDT [facility] MCH 36.3(H) 27.0 - 33.0 pg 10/14/2024 5:00 AM EDT [facility] MCHC 35.7 32.0 - 36.0 g/dL 10/14/2024 5:00 AM EDT [facility] RDW 17.6(H) 11.0 - 15.0 % 10/14/2024 5:00 AM EDT [facility] Platelets 35(L) 140 - 400 10E3/uL 10/14/2024 5:00 AM EDT [facility] Comment: Specimen checked for clots. None detected. Slide Reviewed for PLT Clumps. None Seen. MPV 8.5 7.5 - 11.5 fL 10/14/2024 5:00 AM EDT [facility] Whole Blood 10/14/2024 2:53 AM EDT 10/14/2024 4:17 AM EDT us Eileen Schroeder MD, PhD LAB BLOOD ORDERABLES Final Result [facility] [address] [place] [address], [facility] * Cardiac Cath Documents Scan (10/14/2024 [...] mL of GADOBUTROL 1 MMOL/ML INTRAVENOUS SYRINGE ([facility]) administered intravenously COMPARISON: CT 09/03/2024. Ultrasound 10/07/2024. [...] mL of GADOBUTROL 1 MMOL/ML INTRAVENOUS SYRINGE ([facility])administered intravenously COMPARISON: CT 09/03/2024. Ultrasound 10/07/2024. Outside [...] 0.9 - 1.1 10/13/2024 6:12 AM EDT [facility] Comment: RECOMMENDED THERAPEUTIC RANGES USING INR : Stable oral anticoagulant therapy: 2.0 - 3.0 Mechanical prosthetic heart valve: 2.5 - 3.5 Recurrent acute myocardial infarction: 2.5 - 3.5 Plasma 10/13/2024 5:35 AM EDT 10/13/2024 5:52 AM EDT us Eileen Schroeder MD, PhD LAB BLOOD ORDERABLES Final Result [facility] [address] * (ABNORMAL) Hepatic Function Panel (10/13/2024 5:35 AM EDT) Total Bilirubin 6.5(H) 0.0 - 1.5 mg/dL 10/13/2024 6:30 AM EDT [facility] Bilirubin, Direct 3.53(H) 0.00 - 0.40 mg/dL 10/13/2024 6:30 AM EDT [facility] AST 42(H) 13 - 39 U/L 10/13/2024 6:30 AM EDT [facility] ALT 19 7 - 52 U/L 10/13/2024 6:30 AM EDT [facility] Alkaline Phosphatase 108 36 - 125 U/L 10/13/2024 6:30 AM EDT [facility] Total Protein 4.4(L) 6.4 - 8.9 g/dL 10/13/2024 6:30 AM EDT [facility] Albumin 3.1(L) 3.5 - 5.7 g/dL 10/13/2024 6:30 AM EDT [facility] Bilirubin, Indirect 2.97(H) 0.00 - 1.10 mg/dL 10/13/2024 6:30 AM EDT [facility] Plasma 10/13/2024 5:35 AM EDT 10/13/2024 5:52 AM EDT Eileen Schroeder MD, PhD LAB BLOOD ORDERABLES Final Result [facility] [address] [facility]. [address] * Magnesium (10/13/2024 5:35 AM EDT) Magnesium 2.0 1.5 - 2.5 mg/dL 10/13/2024 6:30 AM EDT [facility] Plasma 10/13/2024 5:35 AM EDT 10/13/2024 5:52 AM EDT Eileen Schroeder MD, PhD LAB BLOOD ORDERABLES Final Result [facility] [address] [place] [address], [facility] * (ABNORMAL) Renal Function Panel w/EGFR (10/13/2024 5:35 AM EDT) Sodium 134 133 - 146 mmol/L 10/13/2024 6:30 AM EDT [facility] Potassium 3.7 3.5 - 5.3 mmol/L 10/13/2024 6:30 AM EDT [facility] Chloride 109 98 - 110 mmol/L 10/13/2024 6:30 AM EDT [facility] CO2 14(L) 21 - 33 mmol/L 10/13/2024 6:30 AM EDT [facility] Anion Gap 11 3 - 16 mmol/L 10/13/2024 6:30 AM EDT [facility] BUN 54(H) 7 - 25 mg/dL 10/13/2024 6:30 AM EDT [facility] Creatinine 2.99(H) 0.60 - 1.30 mg/dL 10/13/2024 6:30 AM EDT [facility] Glucose 116(H) 70 - 100 mg/dL 10/13/2024 6:30 AM EDT [facility] Calcium 8.3(L) 8.6 - 10.3 mg/dL 10/13/2024 6:30 AM EDT [facility] Phosphorus 4.5 2.1 - 4.7 mg/dL 10/13/2024 6:30 AM EDT [facility] Albumin 3.1(L) 3.5 - 5.7 g/dL 10/13/2024 6:30 AM EDT [facility] Osmolality, Calculated 294 278 - 305 mOsm/kg 10/13/2024 6:30 AM EDT [facility] EGFR 26 10/13/2024 6:30 AM EDT [facility] Comment:As of 2021, the [...] MD, PhD LAB BLOOD ORDERABLES Final Result [facility] [address] [place] [address], [facility] * (ABNORMAL) CBC (10/13/2024 5:35 AM EDT) WBC 4.7 3.8 - 10.8 10E3/uL 10/13/2024 6:22 AM EDT [facility] RBC 2.06(L) 4.20 - 5.80 10E6/uL 10/13/2024 6:22 AM EDT [facility] Hemoglobin 7.4(L) 13.2 - 17.1 g/dL 10/13/2024 6:22 AM EDT [facility] Hematocrit 21.7(L) 38.5 - 50.0 % 10/13/2024 6:22 AM EDT [facility] MCV 105.4(H) 80.0 - 100.0 fL 10/13/2024 6:22 AM EDT [facility] MCH 35.9(H) 27.0 - 33.0 pg 10/13/2024 6:22 AM EDT [facility] MCHC 34.0 32.0 - 36.0 g/dL 10/13/2024 6:22 AM EDT [facility] RDW 18.5(H) 11.0 - 15.0 % 10/13/2024 6:22 AM EDT [facility] Platelets 35(L) 140 - 400 10E3/uL 10/13/2024 6:22 AM EDT [facility] Comment: CNV Specimen checked for clots. None detected. MPV 8.4 7.5 - 11.5 fL 10/13/2024 6:22 AM EDT [facility] Whole Blood 10/13/2024 5:35 AM EDT 10/13/2024 5:53 AM EDT us Eileen Schroeder MD, PhD LAB BLOOD ORDERABLES Final Result Performing Organization Address City/[facility] Co de Phone Number [facility] [address] [facility] * (ABNORMAL) Ammonia (10/13/2024 5:35 AM EDT) Ammonia 203(HH) 27 - 90 ug/dL 10/13/2024 7:16 AM EDT [facility] Comment: HEMOLYSIS EVIDENT. RESULTS MAY BE INFLUENCED. Critical Result [id number] Called to and read back by: KEY MELO RN at: 10/13/2024 07:15:55 by:[email or web address] Plasma 10/13/2024 5:35 AM EDT 10/13/2024 6:19 AM EDT us Ellis Mays DO LAB BLOOD ORDERABLES Final Resul t Performing Organization Address [facility] Co de Phone Number [facility] [address] [facility] * CARISA Rhythm Strip - Scan (10/12/2024 10:30 PM EDT) us Scanning [facility] SCAN DOCS - NO RESULTS Final Res ult * (ABNORMAL) Protime-INR (10/12/2024 5:44 AM EDT) Protime 25.7(H) 12.1 - 15.1 seconds 10/12/2024 6:12 AM EDT [facility] INR 2.3(H) 0.9 - 1.1 10/12/2024 6:12 AM EDT [facility] Comment: RECOMMENDED THERAPEUTIC RANGES USING INR : Stable oral anticoagulant therapy: 2.0 - 3.0 Mechanical prosthetic heart valve: 2.5 - 3.5 Recurrent acute myocardial infarction: 2.5 - 3.5 Plasma 10/12/2024 5:44 AM EDT 10/12/2024 5:58 AM EDT Eileen Schroeder MD, PhD LAB BLOOD ORDERABLES Final Result Performing Organization Address [facility] Co de Phone Number [facility] [address] * (ABNORMAL) Hepatic Function Panel (10/12/2024 5:44 AM EDT) Total Bilirubin 6.5(H) 0.0 - 1.5 mg/dL 10/12/2024 6:29 AM EDT [facility] Bilirubin, Direct 3.64(H) 0.00 - 0.40 mg/dL 10/12/2024 6:29 AM EDT [facility] LAB AST 40(H) 13 - 39 U/L 10/12/2024 6:29 AM EDT [facility] ALT 19 7 - 52 U/L 10/12/2024 6:29 AM EDT [facility] Alkaline Phosphatase 99 36 - 125 U/L 10/12/2024 6:29 AM EDT [facility] Total Protein 4.2(L) 6.4 - 8.9 g/dL 10/12/2024 6:29 AM EDT [facility] Albumin 3.1(L) 3.5 - 5.7 g/dL 10/12/2024 6:29 AM EDT [facility] Bilirubin, Indirect 2.86(H) 0.00 - 1.10 mg/dL 10/12/2024 6:29 AM EDT [facility] Plasma 10/12/2024 5:44 AM EDT 10/12/2024 5:58 AM EDT Eileen Schroeder MD, PhD LAB BLOOD ORDERABLES Final Result Performing Organization Address City/[facility]/ZIP Co de Phone Number [facility] [address] [facility] * Magnesium (10/12/2024 5:44 AM EDT) Magnesium 1.9 1.5 - 2.5 mg/dL 10/12/2024 6:29 AM EDT [facility] Plasma 10/12/2024 5:44 AM EDT 10/12/2024 5:58 AM EDT us Eileen Schroeder MD, PhD LAB BLOOD ORDERABLES Final Result [facility] [address] [facility]. [address] * (ABNORMAL) Renal Function Panel w/EGFR (10/12/2024 5:44 AM EDT) Sodium 135 133 - 146 mmol/L 10/12/2024 6:29 AM EDT [facility] Potassium 3.7 3.5 - 5.3 mmol/L 10/12/2024 6:29 AM EDT [facility] Chloride 109 98 - 110 mmol/L 10/12/2024 6:29 AM EDT [facility] CO2 17(L) 21 - 33 mmol/L 10/12/2024 6:29 AM EDT [facility] Anion Gap 9 3 - 16 mmol/L 10/12/2024 6:29 AM EDT [facility] BUN 52(H) 7 - 25 mg/dL 10/12/2024 6:29 AM EDT [facility] Creatinine 2.94(H) 0.60 - 1.30 mg/dL 10/12/2024 6:29 AM EDT [facility] Glucose 121(H) 70 - 100 mg/dL 10/12/2024 6:29 AM EDT [facility] Calcium 8.5(L) 8.6 - 10.3 mg/dL 10/12/2024 6:29 AM EDT [facility] Phosphorus 4.6 2.1 - 4.7 mg/dL 10/12/2024 6:29 AM EDT [facility] Albumin 3.1(L) 3.5 - 5.7 g/dL 10/12/2024 6:29 AM EDT [facility] Osmolality, Calculated 295 278 - 305 mOsm/kg 10/12/2024 6:29 AM EDT [facility] EGFR 27 10/12/2024 6:29 AM EDT [facility] Comment:As of 2021, the [...] MD, PhD LAB BLOOD ORDERABLES Final Result [facility] [address] [address], [facility] * (ABNORMAL) CBC (10/12/2024 5:44 AM EDT) WBC 3.3(L) 3.8 - 10.8 10E3/uL 10/12/2024 7:06 AM EDT [facility] RBC 1.95(L) 4.20 - 5.80 10E6/uL 10/12/2024 7:06 AM EDT [facility] Hemoglobin 7.2(L) 13.2 - 17.1 g/dL 10/12/2024 7:06 AM EDT [facility] Hematocrit 19.7(L) 38.5 - 50.0 % 10/12/2024 7:06 AM EDT [facility] MCV 101.2(H) 80.0 - 100.0 fL 10/12/2024 7:06 AM EDT [facility] MCH 37.0(H) 27.0 - 33.0 pg 10/12/2024 7:06 AM EDT [facility] MCHC 36.5(H) 32.0 - 36.0 g/dL 10/12/2024 7:06 AM EDT [facility] RDW 17.6(H) 11.0 - 15.0 % 10/12/2024 7:06 AM EDT [facility] Platelets 30(L) 140 - 400 10E3/uL 10/12/2024 7:06 AM EDT [facility] Comment: Specimen checked for clots. None detected. Slide Reviewed for PLT Clumps. None Seen. Platelet Estimate Decreased 10/12/2024 7:06 AM EDT [facility] MPV 8.3 7.5 - 11.5 fL 10/12/2024 7:06 AM EDT [facility] Whole Blood 10/12/2024 5:44 AM EDT 10/12/2024 5:58 AM EDT Narrative [facility] - 10/12/2024 7:06 AM EDT Peripheral blood smear was scanned per review criteria approved by the laboratory medical health researcher. us Eileen Schroeder MD, PhD LAB BLOOD ORDERABLES Final Result [facility] [address] * CARISA Rhythm Strip - Scan (10/11/2024 10:04 PM EDT) us Scanning Uchhim SCAN DOCS - NO RESULTS Final Res ult * (ABNORMAL) Protime-INR (10/11/2024 3:02 AM EDT) Protime 26.8(H) 12.1 - 15.1 seconds 10/11/2024 3:30 AM EDT [facility] INR 2.4(H) 0.9 - 1.1 10/11/2024 3:30 AM EDT [facility] Comment: RECOMMENDED THERAPEUTIC RANGES USING INR : Stable oral anticoagulant therapy: 2.0 - 3.0 Mechanical prosthetic heart valve: 2.5 - 3.5 Recurrent acute myocardial infarction: 2.5 - 3.5 Plasma 10/11/2024 3:02 AM EDT 10/11/2024 3:08 AM EDT Eileen Schroeder MD, PhD LAB BLOOD ORDERABLES Final Result Performing Organization Address City/[facility]/ZIP Co de Phone Number [facility] [address] [facility] * (ABNORMAL) Hepatic Function Panel (10/11/2024 3:02 AM EDT) Total Bilirubin 7.3(H) 0.0 - 1.5 mg/dL 10/11/2024 3:38 AM EDT [facility] Bilirubin, Direct 3.85(H) 0.00 - 0.40 mg/dL 10/11/2024 3:38 AM EDT [facility] AST 39 13 - 39 U/L 10/11/2024 3:38 AM EDT [facility] ALT 20 7 - 52 U/L 10/11/2024 3:38 AM EDT [facility] Alkaline Phosphatase 88 36 - 125 U/L 10/11/2024 3:38 AM EDT [facility] Total Protein 4.5(L) 6.4 - 8.9 g/dL 10/11/2024 3:38 AM EDT [facility] Albumin 3.3(L) 3.5 - 5.7 g/dL 10/11/2024 3:38 AM EDT [facility] Bilirubin, Indirect 3.45(H) 0.00 - 1.10 mg/dL 10/11/2024 3:38 AM EDT [facility] Plasma 10/11/2024 3:02 AM EDT 10/11/2024 3:08 AM EDT Eileen Schroeder MD, PhD LAB BLOOD ORDERABLES Final Result Performing Organization Address City/[facility]/ZIP Co de Phone Number [facility] [address] [facility]. [address] * Magnesium (10/11/2024 3:02 AM EDT) Magnesium 2.0 1.5 - 2.5 mg/dL 10/11/2024 3:38 AM EDT [facility] Plasma 10/11/2024 3:02 AM EDT 10/11/2024 3:08 AM EDT us Eileen cShroeder MD, PhD LAB BLOOD ORDERABLES Final Result [facility] [address] [address] * (ABNORMAL) Renal Function Panel w/EGFR (10/11/2024 3:02 AM EDT) Sodium 134 133 - 146 mmol/L 10/11/2024 3:38 AM EDT [facility] Potassium 3.6 3.5 - 5.3 mmol/L 10/11/2024 3:38 AM EDT [facility] Chloride 108 98 - 110 mmol/L 10/11/2024 3:38 AM EDT [facility] CO2 16(L) 21 - 33 mmol/L 10/11/2024 3:38 AM EDT [facility] Anion Gap 10 3 - 16 mmol/L 10/11/2024 3:38 AM EDT [facility] BUN 49(H) 7 - 25 mg/dL 10/11/2024 3:38 AM EDT [facility] Creatinine 2.77(H) 0.60 - 1.30 mg/dL 10/11/2024 3:38 AM EDT [facility] Glucose 112(H) 70 - 100 mg/dL 10/11/2024 3:38 AM EDT [facility] Calcium 8.9 8.6 - 10.3 mg/dL 10/11/2024 3:38 AM EDT [facility] Phosphorus 3.5 2.1 - 4.7 mg/dL 10/11/2024 3:38 AM EDT [facility] Albumin 3.3(L) 3.5 - 5.7 g/dL 10/11/2024 3:38 AM EDT [facility] Osmolality, Calculated 292 278 - 305 mOsm/kg 10/11/2024 3:38 AM EDT [facility] EGFR 29 10/11/2024 3:38 AM EDT [facility] Comment:As of 2021, the [...] MD, PhD LAB BLOOD ORDERABLES Final Result [facility] [address] [place] [address], [facility] * (ABNORMAL) CBC (10/11/2024 3:02 AM EDT) WBC 4.0 3.8 - 10.8 10E3/uL 10/11/2024 3:55 AM EDT [facility] RBC 2.11(L) 4.20 - 5.80 10E6/uL 10/11/2024 3:55 AM EDT [facility] Hemoglobin 7.7(L) 13.2 - 17.1 g/dL 10/11/2024 3:55 AM EDT [facility] Hematocrit 21.2(L) 38.5 - 50.0 % 10/11/2024 3:55 AM EDT [facility] MCV 100.5(H) 80.0 - 100.0 fL 10/11/2024 3:55 AM EDT [facility] MCH 36.4(H) 27.0 - 33.0 pg 10/11/2024 3:55 AM EDT [facility] MCHC 36.2(H) 32.0 - 36.0 g/dL 10/11/2024 3:55 AM EDT [facility] RDW 17.9(H) 11.0 - 15.0 % 10/11/2024 3:55 AM EDT [facility] Platelets 32(L) 140 - 400 10E3/uL 10/11/2024 3:55 AM EDT [facility] Comment: Specimen checked for clots. None detected. Slide Reviewed for PLT Clumps. None Seen. Platelet Estimate Decreased 10/11/2024 3:55 AM EDT [facility] MPV 8.1 7.5 - 11.5 fL 10/11/2024 3:55 AM EDT [facility] Whole Blood 10/11/2024 3:02 AM EDT 10/11/2024 3:08 AM EDT Narrative [facility] - 10/11/2024 3:55 AM EDT Peripheral blood smear was scanned per review criteria approved by the laboratory medical health researcher. us Eileen Schroeder MD, PhD LAB BLOOD ORDERABLES Final Result [facility] [address] * Vancomycin, random (10/11/2024 3:02 AM EDT) Vancomycin Random 13.4 ug/mL 10/11/2024 3:37 AM EDT [facility] Comment:Reference range not established for this test. Plasma 10/11/2024 3:02 AM EDT 10/11/2024 3:08 AM EDT us Jodi FreireD LAB BLOOD ORDERABLES Final Result [facility] [address] [facility] * IR Paracentesis incl imaging guide [...] diagnostic and therapeutic paracentesis. Bakari Wahl CNP, Environmental Health Safety Manager Procedure and Findings: The procedure was [...] Using ultrasound guidance, a 10 cm, 5-F Algentis Centesis catheter was placed into the right [...] for diagnostic andtherapeutic paracentesis. Bakari Wahl CNP, Environmental Health Safety Manager Procedure and Findings: The procedure was [...] Using ultrasound guidance, a 10 cm, 5-F [place] The[employer] Centesis catheter was placedinto the right lower [...] Colorless, Pale Yellow 10/10/2024 5:29 PM EDT [facility] Clarity, Fluid Clear 10/10/2024 5:29 PM EDT [facility] Neutrophil %, Fluid 9 % 10/10/2024 5:29 PM EDT [facility] Lymphocytes %, Fluid 13 % 10/10/2024 5:29 PM EDT [facility] Mesothelial %, Fluid 6 % 10/10/2024 5:29 PM EDT [facility] Macrophage %, Fluid 72 % 10/10/2024 5:29 PM EDT [facility] RBC, Fluid 2,662 /uL 10/10/2024 4:41 PM EDT [facility] Total Nucleated Cells, Fluid 89 /uL 10/10/2024 4:41 PM EDT [facility] Comment:Total Nucleated Cell s represent WBCs and other nucleated cells in the fluid such as lining cells. Ascitic Fluid ABDOMEN / Unknown 1:51 PM EDT 10/10/2024 3:56 PM EDT Gerri Peterson MD BODY FLUIDS AND STOOLS ORDERABL ES Final Result Performing Organization Address City/[facility]/ZIP Co de Phone Number [facility] [address] * Body Fluid Culture plus Stain (10/10/2024 1:51 PM EDT) Gram Stain Result Cytospin Results: [facility] Gram Stain Result Polymorphonuclear Leukocytes Seen; [facility] Gram Stain Result No Organisms Seen; [facility] Culture Result No Growth After 5 Days [facility] Fluid ABDOMEN / Unknown 10/10/2024 1:51 PM EDT 10/10/2024 3:56 PM EDT Gerri Peterson MD MICROBIOLOGY - GENERAL ORDERABL ES Final Result [facility] [address] * UPPER GI ENDOSCOPY (10/10/2024 11:48 AM EDT) 10/10/2024 11:4 8 AM EDT Narrative [facility] - 10/10/2024 12:34 PM EDT [id number] Procedure Date: 10/10/2024 11:48 AM Patient Name: Julien Gilbert Date of : 1985 Admit Type: Inpatient Age: 39 Gender: Male Note Status: Finalized Attending MD: Lino Soto MD, [id number] Procedure: Upper GI endoscopy Indications: Gastroesopahgeal variceal [...] verified by the physician, the nurse, the chargeback specialist and the energy and conservation technician in the pre-procedure area in the [...] to hypotension Procedure Code(s): --- Professional --- 62893, GC, Esophagogastroduodenoscopy, flexible, transoral; diagnostic, including collection of specimen(s) by brushing or washing, when performed (separate procedure) Diagnosis Code(s): --- Professional --- I85.00, Esophageal varices without bleeding K76.6, Portal hypertension K31.89, Other diseases of stomach and duodenum CPT copyright 2022 [employer]. All rights reserved. The codes documented in this report are preliminary and upon patient liaison review may be revised to meet current [...] 12:10:16 PM Scope Out: 12:17:[address] [place] [address], [facility] us Provider Not In System PROCEDURE/MINOR SURGICAL ORDERABLES Final Result Performing Organization Address [facility] Co de Phone Number [facility] * (ABNORMAL) Protime-INR (10/10/2024 5:23 AM EDT) Protime 23.9(H) 12.1 - 15.1 seconds 10/10/2024 6:11 AM EDT [facility] INR 2.1(H) 0.9 - 1.1 10/10/2024 6:11 AM EDT [facility] Comment: RECOMMENDED THERAPEUTIC RANGES USING INR : Stable oral anticoagulant therapy: 2.0 - 3.0 Mechanical prosthetic heart valve: 2.5 - 3.5 Recurrent acute myocardial infarction: 2.5 - 3.5 Plasma 10/10/2024 5:23 AM EDT 10/10/2024 5:50 AM EDT us Eileen Schroeder MD, PhD LAB BLOOD ORDERABLES Final Result Performing Organization Address City/[facility] Co de Phone Number [facility] [address] [place] [address] * (ABNORMAL) Hepatic Function Panel (10/10/2024 5:23 AM EDT) Total Bilirubin 8.6(H) 0.0 - 1.5 mg/dL 10/10/2024 6:21 AM EDT [facility] Bilirubin, Direct 4.65(H) 0.00 - 0.40 mg/dL 10/10/2024 6:21 AM EDT [facility] AST 40(H) 13 - 39 U/L 10/10/2024 6:21 AM EDT [facility] ALT 22 7 - 52 U/L 10/10/2024 6:21 AM EDT [facility] Alkaline Phosphatase 118 36 - 125 U/L 10/10/2024 6:21 AM EDT [facility] Total Protein 4.6(L) 6.4 - 8.9 g/dL 10/10/2024 6:21 AM EDT [facility] Albumin 3.3(L) 3.5 - 5.7 g/dL 10/10/2024 6:21 AM EDT [facility] Bilirubin, Indirect 3.95(H) 0.00 - 1.10 mg/dL 10/10/2024 6:21 AM EDT [facility] Plasma 10/10/2024 5:23 AM EDT 10/10/2024 5:50 AM EDT us Eileen Schroeder MD, PhD LAB BLOOD ORDERABLES Final Result Performing Organization Address City/[facility]/ZIP Co de Phone Number [facility] [address] * Magnesium (10/10/2024 5:23 AM EDT) Magnesium 1.9 1.5 - 2.5 mg/dL 10/10/2024 6:21 AM EDT [facility] Plasma 10/10/2024 5:23 AM EDT 10/10/2024 5:50 AM EDT Eileen Schroeder MD, PhD LAB BLOOD ORDERABLES Final Result Performing Organization Address City/[facility]/ZIP Co de Phone Number [facility] [address] * (ABNORMAL) Renal Function Panel w/EGFR (10/10/2024 5:23 AM EDT) Sodium 135 133 - 146 mmol/L 10/10/2024 6:21 AM EDT [facility] Potassium 3.6 3.5 - 5.3 mmol/L 10/10/2024 6:21 AM EDT [facility] Chloride 108 98 - 110 mmol/L 10/10/2024 6:21 AM EDT [facility] CO2 17(L) 21 - 33 mmol/L 10/10/2024 6:21 AM EDT [facility] Anion Gap 10 3 - 16 mmol/L 10/10/2024 6:21 AM EDT [facility] BUN 53(H) 7 - 25 mg/dL 10/10/2024 6:21 AM EDT [facility] Creatinine 2.85(H) 0.60 - 1.30 mg/dL 10/10/2024 6:21 AM EDT [facility] Glucose 113(H) 70 - 100 mg/dL 10/10/2024 6:21 AM EDT [facility] Calcium 9.0 8.6 - 10.3 mg/dL 10/10/2024 6:21 AM EDT [facility] Phosphorus 3.3 2.1 - 4.7 mg/dL 10/10/2024 6:21 AM EDT [facility] Albumin 3.3(L) 3.5 - 5.7 g/dL 10/10/2024 6:21 AM EDT [facility] Osmolality, Calculated 295 278 - 305 mOsm/kg 10/10/2024 6:21 AM EDT [facility] EGFR 28 10/10/2024 6:21 AM EDT [facility] Comment:As of 2021, the [...] MD, PhD LAB BLOOD ORDERABLES Final Result [facility] [address] [place] [address], [facility] * (ABNORMAL) CBC (10/10/2024 5:23 AM EDT) WBC 5.1 3.8 - 10.8 10E3/uL 10/10/2024 6:14 AM EDT [facility] RBC 2.04(L) 4.20 - 5.80 10E6/uL 10/10/2024 6:14 AM EDT [facility] Hemoglobin 7.3(L) 13.2 - 17.1 g/dL 10/10/2024 6:14 AM EDT [facility] Hematocrit 20.6(L) 38.5 - 50.0 % 10/10/2024 6:14 AM EDT [facility] MCV 101.2(H) 80.0 - 100.0 fL 10/10/2024 6:14 AM EDT [facility] MCH 36.0(H) 27.0 - 33.0 pg 10/10/2024 6:14 AM EDT [facility] MCHC 35.5 32.0 - 36.0 g/dL 10/10/2024 6:14 AM EDT [facility] RDW 17.6(H) 11.0 - 15.0 % 10/10/2024 6:14 AM EDT [facility] Platelets 39(L) 140 - 400 10E3/uL 10/10/2024 6:14 AM EDT [facility] Comment: CNV Specimen checked for clots. None detected. MPV 9.8 7.5 - 11.5 fL 10/10/2024 6:14 AM EDT [facility] Whole Blood 10/10/2024 5:23 AM EDT 10/10/2024 5:51 AM EDT us Eileen Schroeder MD, PhD LAB BLOOD ORDERABLES Final Result Performing Organization Address City/[facility]/ZIP Co de Phone Number [facility] [address] [place] [address] * Vancomycin, random (10/10/2024 5:23 AM EDT) Vancomycin Random 16.4 ug/mL 10/10/2024 6:22 AM EDT [facility] Comment:Reference range not established for this test. Plasma 10/10/2024 5:23 AM EDT 10/10/2024 5:51 AM EDT us Jodi FreireD LAB BLOOD ORDERABLES Final Result Performing Organization Address [facility] Co de Phone Number [facility] [address] [place] [address] * ECHO STRESS W/ CONTRAST (10/09/2024 4:37 PM EDT) Anatomical Region Laterality Modality Chest Ultrasound 10/09/2024 2:40 PM EDT Narrative 10/09/2024 6:45 PM EDT * [facility]* [address] [place] [address] Stress Echocardiogram Patient: Julien Gilbert Room: 8142 Height: 76in MR Number: [id number] : 1985 Weight: 262lb Account: [id number] Gender: M BP: 125 / 77 Study Date: 10/09/2024 Age: 39 BSA: 2.48m^2 Referring physician: Gerri Peterson Interpreting physician: Tonya Henriquez MD FELLOW Lisa Jha MD PERFORMING Tonya Henriquez MD METHODS SPECIALIST [place] ORDERING Gerri Peterson REFERRING [...] was augmented by the addition of hand mounter sousaphones and leg lifts. The infusion was terminated [...] at baseline or with provocation, shows no heouw-df-pqiv atrial level shunt. - Pulmonary arteries: Systolic [...] at baseline or with provocation, shows no czdei-lk-lnxg atrial level shunt. Pulmonary artery: - Systolic [...] at baseline or with provocation, shows no ycsek-lw-ggnc atrial level shunt. Pericardium: - There is [...] peak heart rate and blood pressure was 80166kd Hg/min. Stress testing did not produce any [...] 0.78 --------- MARGARETH, Vmax 2.8 cm^2 --------- MARGARTEH/bsa, Vmax 1.14 cm^2/m^2 --------- LVOT/AV, Vmean ratio [...] Reviewed and confirmed by Tonya Henriquez MD [id number] Procedure Note Tonya Henriquez MD - 10/09/2024 * [facility]* [address] [place] [id number] Stress Echocardiogram Patient: Julien Gilbert Room: 8142 Height: 76in MR Number: [id number] : 1985 Weight: 262lb Account: [id number] Gender: M BP: 125 / 77 Study Date: 10/09/2024 Age: 39 BSA: 2.48m^2 Referring physician: Gerri Peterson Interpreting physician: Tonya Henriquez MD FELLOW Lisa Jha MD PERFORMING Tonya Henriquez MD METHODS SPECIALIST [place] ORDERING Gerri Peterson REFERRING Gerri Peterson ATTENDING Fouzia Rene ADMITTING Angie Blanchard Procedure:STRESS ECHO - PHARMACOLOGIC Order: Indications: Pre-Operative Clearance ([id number]). PMH: EtOH Use Disorder. Risk factors: Hypertension. Dyslipidemia. Study data: Height: 76in. 193cm. Weight: 262lb. 118.8kg. The previousstudy was not available, so comparison was made to the report of 07/15/2024. Study status: Routine. Procedure: [facility]. Intravenous [...] was augmented by the addition of hand mounter sousaphones and leg lifts. The infusion was terminated [...] at baseline or with provocation, shows no oarsv-xk-acpo atrial level shunt. - Pulmonary arteries: Systolic [...] study at baseline or with provocation, showsno tfofj-ti-phxv atrial level shunt. Pulmonary artery: - Systolic [...] at baseline or with provocation, shows no bktkg-fe-jmhf atrial level shunt. Pericardium: - There is [...] heart rate). The maximal predicted heart rate [id number]. The target heart rate was 152bpm. The target heart rate was achieved.The heart rate response to stress is normal. There is a normal resting blood pressure with an appropriate response to stress. The rate-pressureproduct for the peak heart rate and blood pressure was 57137ha Hg/min. Stress testing did not produce any [...] Reviewed and confirmed by Tonya Henriquez MD [id number] Gerri Peterson MD CV ECHO ORDERABLES Final Result * (ABNORMAL) Renal Function Panel w/EGFR, STAT (10/09/2024 1:05 PM EDT) Sodium 134 133 - 146 mmol/L 10/09/2024 2:10 PM EDT [facility] Potassium 3.7 3.5 - 5.3 mmol/L 10/09/2024 2:10 PM EDT [facility] Chloride 105 98 - 110 mmol/L 10/09/2024 2:10 PM EDT [facility] CO2 17(L) 21 - 33 mmol/L 10/09/2024 2:10 PM EDT [facility] Anion Gap 12 3 - 16 mmol/L 10/09/2024 2:10 PM EDT [facility] BUN 53(H) 7 - 25 mg/dL 10/09/2024 2:10 PM EDT [facility] Creatinine 2.89(H) 0.60 - 1.30 mg/dL 10/09/2024 2:10 PM EDT [facility] Glucose 108(H) 70 - 100 mg/dL 10/09/2024 2:10 PM EDT [facility] Calcium 9.3 8.6 - 10.3 mg/dL 10/09/2024 2:10 PM EDT [facility] Phosphorus 3.4 2.1 - 4.7 mg/dL 10/09/2024 2:10 PM EDT [facility] Albumin 3.6 3.5 - 5.7 g/dL 10/09/2024 2:10 PM EDT [facility] Osmolality, Calculated 293 278 - 305 mOsm/kg 10/09/2024 2:10 PM EDT [facility] EGFR 27 10/09/2024 2:10 PM EDT [facility] Comment:As of 2021, the [...] MD, PhD LAB BLOOD ORDERABLES Final Result [facility] [address] * (ABNORMAL) Renal Function Panel w/EGFR, STAT (10/09/2024 8:14 AM EDT) Sodium 134 133 - 146 mmol/L 10/09/2024 8:47 AM EDT [facility] Potassium 3.4(L) 3.5 - 5.3 mmol/L 10/09/2024 8:47 AM EDT [facility] Chloride 107 98 - 110 mmol/L 10/09/2024 8:47 AM EDT [facility] CO2 17(L) 21 - 33 mmol/L 10/09/2024 8:47 AM EDT [facility] Anion Gap 10 3 - 16 mmol/L 10/09/2024 8:47 AM T [facility] BUN 54(H) 7 - 25 mg/dL 10/09/2024 8:47 AM EDT [facility] Creatinine 3.04(H) 0.60 - 1.30 mg/dL 10/09/2024 8:47 AM EDT [facility] Glucose 124(H) 70 - 100 mg/dL 10/09/2024 8:47 AM EDT [facility] Calcium 9.0 8.6 - 10.3 mg/dL 10/09/2024 8:47 AM EDT [facility] Phosphorus 3.5 2.1 - 4.7 mg/dL 10/09/2024 8:47 AM EDT [facility] Albumin 3.4(L) 3.5 - 5.7 g/dL 10/09/2024 8:47 AM T [facility] Osmolality, Calculated 294 278 - 305 mOsm/kg 10/09/2024 8:47 AM EDT [facility] EGFR 26 10/09/2024 8:47 AM EDT [facility] Comment:As of 2021, the [...] MD LAB BLOOD ORDERABLES Final Resu lt [facility] [address] * Prepare RBC, leukoreduced, 1 Units (10/09/2024 6:16 AM EDT) Product Code D5420X42 HCLL Unit Number [id number] HCLL Dispense Status Presumed Transfused_PT HCLL Blood Expiration Date [id number] HCLL Coding System [id number] [facility] Blood Bank Product Eileen Schroeder MD, PhD BLOOD BANK PRODUCT OR DERABLES Final Result Performing Organization Address City/[facility]/ZIP Co de Phone Number HCLL * (ABNORMAL) Protime-INR (10/09/2024 4:59 AM EDT) Protime 26.5(H) 12.1 - 15.1 seconds 10/09/2024 6:30 AM EDT [facility] INR 2.4(H) 0.9 - 1.1 10/09/2024 6:30 AM EDT [facility] Comment: RECOMMENDED THERAPEUTIC RANGES USING INR : Stable oral anticoagulant therapy: 2.0 - 3.0 Mechanical prosthetic heart valve: 2.5 - 3.5 Recurrent acute myocardial infarction: 2.5 - 3.5 Plasma 10/09/2024 4:59 AM EDT 10/09/2024 5:55 AM EDT Eileen Schroeder MD, PhD LAB BLOOD ORDERABLES Final Result Performing Organization Address City/[facility]/ZIP Co de Phone Number [facility] [address] [facility] * (ABNORMAL) Hepatic Function Panel (10/09/2024 4:59 AM EDT) Total Bilirubin 9.0(H) 0.0 - 1.5 mg/dL 10/09/2024 6:42 AM EDT [facility] Bilirubin, Direct 4.60(H) 0.00 - 0.40 mg/dL 10/09/2024 6:42 AM EDT [facility] AST 38 13 - 39 U/L 10/09/2024 6:42 AM EDT [facility] ALT 18 7 - 52 U/L 10/09/2024 6:42 AM EDT [facility] Alkaline Phosphatase 122 36 - 125 U/L 10/09/2024 6:42 AM EDT [facility] Total Protein 4.8(L) 6.4 - 8.9 g/dL 10/09/2024 6:42 AM EDT [facility] Albumin 3.4(L) 3.5 - 5.7 g/dL 10/09/2024 6:42 AM EDT [facility] Bilirubin, Indirect 4.40(H) 0.00 - 1.10 mg/dL 10/09/2024 6:42 AM EDT [facility] Plasma 10/09/2024 4:59 AM EDT 10/09/2024 5:57 AM EDT Eileen Schroeder MD, PhD LAB BLOOD ORDERABLES Final Result [facility] [address] [facility] * Magnesium (10/09/2024 4:59 AM EDT) Magnesium 1.8 1.5 - 2.5 mg/dL 10/09/2024 6:42 AM EDT [facility] Plasma 10/09/2024 4:59 AM EDT 10/09/2024 5:57 AM EDT us Eileen Schroeder MD, PhD LAB BLOOD ORDERABLES Final Result [facility] [address] [place] [address], [facility] * (ABNORMAL) Renal Function Panel w/EGFR (10/09/2024 4:59 AM EDT) Sodium 134 133 - 146 mmol/L 10/09/2024 6:42 AM EDT [facility] Potassium 3.3(L) 3.5 - 5.3 mmol/L 10/09/2024 6:42 AM EDT [facility] Chloride 107 98 - 110 mmol/L 10/09/2024 6:42 AM EDT [facility] CO2 16(L) 21 - 33 mmol/L 10/09/2024 6:42 AM EDT [facility] Anion Gap 11 3 - 16 mmol/L 10/09/2024 6:42 AM EDT [facility] BUN 56(H) 7 - 25 mg/dL 10/09/2024 6:42 AM EDT [facility] Creatinine 2.98(H) 0.60 - 1.30 mg/dL 10/09/2024 6:42 AM EDT [facility] Glucose 112(H) 70 - 100 mg/dL 10/09/2024 6:42 AM EDT [facility] Calcium 9.0 8.6 - 10.3 mg/dL 10/09/2024 6:42 AM EDT [facility] Phosphorus 3.5 2.1 - 4.7 mg/dL 10/09/2024 6:42 AM EDT [facility] Albumin 3.4(L) 3.5 - 5.7 g/dL 10/09/2024 6:42 AM EDT [facility] Osmolality, Calculated 294 278 - 305 mOsm/kg 10/09/2024 6:42 AM EDT [facility] EGFR 26 10/09/2024 6:42 AM EDT [facility] Comment:As of 2021, the [...] MD, PhD LAB BLOOD ORDERABLES Final Result [facility] [address] [place] [address], [facility] * (ABNORMAL) CBC (10/09/2024 4:59 AM EDT) WBC 4.6 3.8 - 10.8 10E3/uL 10/09/2024 6:21 AM EDT [facility] RBC 2.17(L) 4.20 - 5.80 10E6/uL 10/09/2024 6:21 AM EDT [facility] Hemoglobin 8.0(L) 13.2 - 17.1 g/dL 10/09/2024 6:21 AM EDT [facility] Hematocrit 21.8(L) 38.5 - 50.0 % 10/09/2024 6:21 AM EDT [facility] MCV 100.5(H) 80.0 - 100.0 fL 10/09/2024 6:21 AM EDT [facility] MCH 36.7(H) 27.0 - 33.0 pg 10/09/2024 6:21 AM EDT [facility] MCHC 36.5(H) 32.0 - 36.0 g/dL 10/09/2024 6:21 AM EDT [facility] RDW 18.1(H) 11.0 - 15.0 % 10/09/2024 6:21 AM EDT [facility] Platelets 36(L) 140 - 400 10E3/uL 10/09/2024 6:21 AM EDT [facility] Comment:Specimen checked for clots. None detected. MPV 8.3 7.5 - 11.5 fL 10/09/2024 6:21 AM EDT [facility] Whole Blood 10/09/2024 4:59 AM EDT 10/09/2024 5:56 AM EDT us Eileen Schroeder MD, PhD LAB BLOOD ORDERABLES Final Result Performing Organization Address [facility] Co de Phone Number [facility] [address] * Renal Tx Recipient (10/09/2024 4:59 AM EDT) Renal Transplant Recipient The request and specimen(s) for this test have been received and transported to the [facility] at [address] [place] [address]. The [facility] will report results directly to the client. 10/09/2024 7:26 AM EDT [facility] Blood 10/09/2024 4:59 AM EDT 10/09/2024 7:26 AM EDT us Aaron Gonzalez MD LAB BLOOD ORDERABLES Final Resu lt Performing Organization Address [facility] Co de Phone Number [facility] [address] * Vancomycin, random (10/09/2024 4:59 AM EDT) Pathologist [facility] Vancomycin Random 11.0 ug/mL 10/09/2024 6:33 AM EDT [facility] Comment:Reference range not established for this test. Plasma 10/09/2024 4:5 9 AM EDT 10/09/2024 5:56 AM EDT us Jodi FreireD LAB BLOOD ORDERABLES Final Result [facility] [address] * (ABNORMAL) CBC (10/08/2024 5:52 PM EDT) WBC 5.6 3.8 - 10.8 10E3/uL 10/08/2024 6:52 PM EDT [facility] RBC 2.38(L) 4.20 - 5.80 10E6/uL 10/08/2024 6:52 PM EDT [facility] Hemoglobin 8.3(L) 13.2 - 17.1 g/dL 10/08/2024 6:52 PM EDT [facility] Hematocrit 24.6(L) 38.5 - 50.0 % 10/08/2024 6:52 PM EDT [facility] MCV 103.2(H) 80.0 - 100.0 fL 10/08/2024 6:52 PM EDT [facility] MCH 34.7(H) 27.0 - 33.0 pg 10/08/2024 6:52 PM EDT [facility] MCHC 33.6 32.0 - 36.0 g/dL 10/08/2024 6:52 PM EDT [facility] RDW 18.5(H) 11.0 - 15.0 % 10/08/2024 6:52 PM EDT [facility] Platelets 39(L) 140 - 400 10E3/uL 10/08/2024 6:52 PM EDT [facility] Comment:CNV MPV 8.1 7.5 - 11.5 fL 10/08/2024 6:52 PM EDT [facility] Whole Blood 10/08/2024 5:52 PM EDT 10/08/2024 6:45 PM EDT us Eileen Schroeder MD, PhD LAB BLOOD ORDERABLES Final Result [facility] [address] * Transfuse RBC Has consent been obtained? Yes; Transfusion Rate: Per dept routine (10/08/2024 1:17 PM EDT) us Eileen Schroeder MD, PhD NURSING TREATMENT ORD ERABLES - BLOOD ADMIN Final Result Performing Organization Address City/[facility]/ZIP Co de Phone Number EXTERNAL * Transfuse RBC Has consent been obtained? Yes; Transfusion Rate: Per dept routine, 1 Units (10/08/2024 1:17 PM EDT) Eileen Schroeder MD, PhD NURSING TREATMENT ORD ERABLES - BLOOD ADMIN Final Result Performing Organization Address City/[facility] Co de Phone Number EXTERNAL * (ABNORMAL) MMR(IgG) Panel (Measles, Mumps, Rubella) (10/08/2024 10:25 AM EDT) Mumps IgG Positive 10/08/2024 11:39 AM EDT [facility] MUMPS IGG NUM 99.00(H) 0.0 - 8.9 U/mL 10/08/2024 11:39 AM EDT [facility] Rubella IgG Scr Positive 10/08/2024 11:40 AM EDT [facility] RUB NUM 4.15(H) 0.00 - 0.89 INDEX 10/08/2024 11:40 AM EDT [facility] Rubeola Ab, IgG Positive 10/08/2024 11:39 AM EDT [facility] RUB IGG NUM 273.00(H) 0.00 - 13.40 U/mL 10/08/2024 11:39 AM EDT [facility] Serum 10/08/2024 10:2 5 AM EDT 10/08/2024 10:49 AM EDT [facility] - 10/08/2024 11:40 AM EDT Presence [...] ORDERABLES Final Resu lt Performing Organization Address City/[facility]/ZIP Co de Phone Number [facility] [address] * (ABNORMAL) Hemoglobin A1C (10/08/2024 10:25 AM EDT) Hemoglobin A1C 3.7(L) 4.0 - 5.6 % 10/09/2024 1:22 PM EDT [facility] Comment: Hemoglobin A1c Interpretation Guidelines: Normal: [...] MD LAB BLOOD ORDERABLES Final Resu lt [facility] [address] * (ABNORMAL) Vitamin D 25 Hydroxy (10/08/2024 10:25 AM EDT) Vit D, 25-Hydroxy 7.1(L) 30.0 - 100.0 ng/mL 10/08/2024 11:36 AM EDT [facility] Comment: Vitamin D deficiency has been defined by the [place] [employer] (IOM) and an Endocrine Society [...] ORDERABLES Final Resu lt Performing Organization Address City/[facility]/ZIP Co de Phone Number [facility] [address] [facility] * Iron Studies (Iron + TIBC) (10/08/2024 10:25 AM EDT) Iron 81 50 - 212 ug/dL 10/08/2024 11:23 AM EDT [facility] % Iron Saturation SEE COMMENT 15.0 - 55.0 % 10/08/2024 11:23 AM EDT [facility] Comment:Unable to calculate result because contributing result outside reportable range.. TIBC SEE COMMENT 261 - 462 ug/dL 10/08/2024 11:23 AM EDT [facility] Comment:Unable to calculate result because contributing result outside reportable range.. Serum 10/08/2024 10:2 5 AM EDT 10/08/2024 10:49 AM EDT us Gerri Peterson MD LAB BLOOD ORDERABLES Final Resu lt Performing Organization Address [facility]/ZIP Co de Phone Number [facility] [address] [facility] * (ABNORMAL) Ferritin (10/08/2024 10:25 AM EDT) Ferritin 706.9(H) 23.9 - 336.2 ng/mL 10/08/2024 11:35 AM EDT [facility] Serum 10/08/2024 10:2 5 AM EDT 10/08/2024 10:49 AM EDT us Gerri Peterson MD LAB BLOOD ORDERABLES Final Resu lt [facility] [address] [facility] * QuantiFERON TB2 Ag (10/08/2024 10:25 AM EDT) QuantiFERON TB2 Ag Value 0.07 10/10/2024 10:41 AM EDT [facility] Plasma 10/08/2024 10:2 5 AM EDT 10/08/2024 11:05 AM EDT Gerri Peterson MD LAB BLOOD ORDERABLES Final Resu lt [facility] [address] [place] [address]. [address] * QuantiFERON TB1 Ag (10/08/2024 10:25 AM EDT) QuantiFERON TB1 Ag Value 0.06 10/10/2024 10:41 AM EDT [facility] Plasma 10/08/2024 10:2 5 AM EDT 10/08/2024 11:05 AM EDT Result [facility] Gerri Peterson MD LAB BLOOD ORDERABLES Final Resu lt Performing Organization Address [facility] Co de Phone Number [facility] [address] [facility] * QuantiFERON Nil (10/08/2024 10:25 AM EDT) QuantiFERON Nil 0.06 10:41 AM EDT [facility] Plasma 10/08/2024 10:2 5 AM EDT 10/08/2024 11:05 AM EDT Result [facility] Gerri Peterson MD LAB BLOOD ORDERABLES Final Resu lt Performing Organization Address [facility] Co de Phone Number [facility] [address] [place] [address]. [address] * QuantiFERON Mitogen (10/08/2024 10:25 AM EDT) QuantiFERON Interpretation Negative Negative 10/10/2024 10:41 AM EDT [facility] Comment:Negative result geovanny cates M. tuberculosis infection is NOT likely. Negative results do not preclude tuberculosis infection (especially in immunosuppressed patients). Negative results have a TB antigen minus Nil value less than 0.35 IU/mL. In cases with high suspicion of disease, retesting or additional testing with medical evaluation may be useful. QuantiFERON Mitogen 4.87 10/10 10:41 AM EDT [facility] Plasma 10/08/2024 10:2 5 AM EDT 10/08/2024 11:05 AM EDT Narrative [facility] - 10/10/2024 10:41 AM [...] MD LAB BLOOD ORDERABLES Final Resu lt [facility] [address] [place], [place] [address] * Reticulocyte Count, Auto (10/08/2024 7:41 AM EDT) Retic Ct Pct 1.35 0.50 - 2.00 % 10/08/2024 9:12 AM EDT [facility] Retic Ct Abs 26,190 25,000 - 90,000 /uL 10/08/2024 9:14 AM EDT [facility] Immature Retic Fract 0.37 0.09 - 0.56 10/08/2024 9:12 AM EDT [facility] Whole Blood 10/08/2024 7:41 AM EDT 10/08/2024 8:51 AM EDT us Angie Blanchard MD LAB BLOOD ORDERABLES Final Res ult [facility] [address] [place] [address], [facility] * (ABNORMAL) Haptoglobin (10/08/2024 7:41 AM EDT) Haptoglobin <30(L) 44 - 215 mg/dL 10/08/2024 8:53 AM EDT [facility] Serum 10/08/2024 7:41 AM EDT 10/08/2024 7:51 AM EDT us iEleen Schroeder MD, PhD LAB BLOOD ORDERABLES Final Result Performing Organization Address [facility]/ZIP Co de Phone Number [facility] [address] [facility]. [address] * (ABNORMAL) CBC - Post Transfusion (10/08/2024 7:41 AM EDT) WBC 3.7(L) 3.8 - 10.8 10E3/uL 10/08/2024 8:34 AM EDT [facility] RBC 1.94(L) 4.20 - 5.80 10E6/uL 10/08/2024 8:34 AM EDT [facility] Hemoglobin 7.1(L) 13.2 - 17.1 g/dL 10/08/2024 8:34 AM EDT [facility] Hematocrit 20.0(L) 38.5 - 50.0 % 10/08/2024 8:34 AM EDT [facility] MCV 103.1(H) 80.0 - 100.0 fL 10/08/2024 8:34 AM EDT [facility] MCH 36.5(H) 27.0 - 33.0 pg 10/08/2024 8:34 AM EDT [facility] MCHC 35.4 32.0 - 36.0 g/dL 10/08/2024 8:34 AM EDT [facility] RDW 17.2(H) 11.0 - 15.0 % 10/08/2024 8:34 AM EDT [facility] Platelets 37(L) 140 - 400 10E3/uL 10/08/2024 8:34 AM EDT [facility] Comment: Specimen checked for clots. None detected. Slide Reviewed for PLT Clumps. None Seen. _Platelet Morphology Normal _Platelets Appear Decreased MPV 8.7 7.5 - 11.5 fL 10/08/2024 8:34 AM EDT [facility] Whole Blood 10/08/2024 7:41 AM EDT 10/08/2024 7:52 AM EDT Narrative [facility] - 10/08/2024 8:34 AM EDT Post-transfusion Eileen Schroeder MD, PhD LAB BLOOD ORDERABLES Final Result [facility] [address] [place] [address]. [address] * Antibody Screen (10/08/2024 7:41 AM EDT) Antibody Screen Negative 10/08/2024 8:26 AM EDT [facility] Blood 10/08/2024 7:41 AM EDT 10/08/2024 7:57 AM EDT Narrative [facility] - 10/08/2024 8:32 AM EDT Testing performed by [facility] Eileen Schroeder MD, PhD BLOOD BANK TEST ORDER PAL Final Result Performing Organization Address City/[facility]/ZIP Co de Phone Number [facility] [address] [facility] * ABO/Rh (10/08/2024 7:41 AM EDT) ABO Grouping O 10/08/2024 8:14 AM EDT [facility] Rh Type Positive 10/08/2024 8:14 AM EDT [facility] Blood 10/08/2024 7:41 AM EDT 10/08/2024 7:57 AM EDT Eileen Schroeder MD, PhD BLOOD BANK TEST ORDER PAL Final Result [facility] [address] * (ABNORMAL) Lactate dehydrogenase (10/08/2024 5:36 AM EDT) LD 102(L) 110 - 270 U/L 10/08/2024 8:20 AM EDT [facility] Plasma 10/08/2024 5:36 AM EDT 10/08/2024 7:58 AM EDT us Angie Blanchard MD LAB BLOOD ORDERABLES Final Res ult [facility] [address] [facility]. [address] * (ABNORMAL) Protime-INR (10/08/2024 5:36 AM EDT) Pathologist [facility] Protime 26.9(H) 12.1 - 15.1 seconds 10/08/2024 6:11 AM EDT [facility] INR 2.4(H) 0.9 - 1.1 10/08/2024 6:11 AM EDT [facility] Comment: RECOMMENDED THERAPEUTIC RANGES USING INR : Stable oral anticoagulant therapy: 2.0 - 3.0 Mechanical prosthetic heart valve: 2.5 - 3.5 Recurrent acute myocardial infarction: 2.5 - 3.5 Plasma 10/08/2024 5:36 AM EDT 10/08/2024 5:52 AM EDT us Eileen Schroeder MD, PhD LAB BLOOD ORDERABLES Final Result [facility] [address] * (ABNORMAL) Hepatic Function Panel (10/08/2024 5:36 AM EDT) Total Bilirubin 7.7(H) 0.0 - 1.5 mg/dL 10/08/2024 6:25 AM EDT [facility] Bilirubin, Direct 4.28(H) 0.00 - 0.40 mg/dL 10/08/2024 6:25 AM EDT [facility] AST 34 13 - 39 U/L 10/08/2024 6:25 AM EDT [facility] ALT 16 7 - 52 U/L 10/08/2024 6:25 AM EDT [facility] Alkaline Phosphatase 103 36 - 125 U/L 10/08/2024 6:25 AM EDT [facility] Total Protein 4.7(L) 6.4 - 8.9 g/dL 10/08/2024 6:25 AM EDT [facility] Albumin 3.5 3.5 - 5.7 g/dL 10/08/2024 6:25 AM EDT [facility] Bilirubin, Indirect 3.42(H) 0.00 - 1.10 mg/dL 10/08/2024 6:25 AM EDT [facility] Plasma 10/08/2024 5:36 AM EDT 10/08/2024 5:52 AM EDT Eileen Schroeder MD, PhD LAB BLOOD ORDERABLES Final Result Performing Organization Address [facility]/ZIP Co de Phone Number [facility] [address] * Magnesium (10/08/2024 5:36 AM EDT) Magnesium 1.9 1.5 - 2.5 mg/dL 10/08/2024 6:25 AM EDT [facility] Plasma 10/08/2024 5:36 AM EDT 10/08/2024 5:52 AM EDT Eileen Schroeder MD, PhD LAB BLOOD ORDERABLES Final Result [facility] [address] * (ABNORMAL) Renal Function Panel w/EGFR (10/08/2024 5:36 AM EDT) Sodium 135 133 - 146 mmol/L 10/08/2024 6:25 AM EDT [facility] Potassium 3.2(L) 3.5 - 5.3 mmol/L 10/08/2024 6:25 AM EDT [facility] Chloride 106 98 - 110 mmol/L 10/08/2024 6:25 AM EDT [facility] CO2 17(L) 21 - 33 mmol/L 10/08/2024 6:25 AM EDT [facility] Anion Gap 12 3 - 16 mmol/L 10/08/2024 6:25 AM EDT [facility] BUN 61(H) 7 - 25 mg/dL 10/08/2024 6:25 AM EDT [facility] Creatinine 3.10(H) 0.60 - 1.30 mg/dL 10/08/2024 6:25 AM EDT [facility] Glucose 106(H) 70 - 100 mg/dL 10/08/2024 6:25 AM EDT [facility] Calcium 9.0 8.6 - 10.3 mg/dL 10/08/2024 6:25 AM EDT [facility] Phosphorus 4.0 2.1 - 4.7 mg/dL 10/08/2024 6:25 AM EDT [facility] Albumin 3.5 3.5 - 5.7 g/dL 10/08/2024 6:25 AM EDT [facility] Osmolality, Calculated 298 278 - 305 mOsm/kg 10/08/2024 6:25 AM EDT [facility] EGFR 25 10/08/2024 6:25 AM EDT [facility] Comment:As of 2021, the [...] MD, PhD LAB BLOOD ORDERABLES Final Result [facility] [address] [place] [address], [facility] * (ABNORMAL) CBC (10/08/2024 5:36 AM EDT) WBC 3.2(L) 3.8 - 10.8 10E3/uL 10/08/2024 6:41 AM EDT [facility] RBC 1.86(L) 4.20 - 5.80 10E6/uL 10/08/2024 6:41 AM EDT [facility] Hemoglobin 6.9(L) 13.2 - 17.1 g/dL 10/08/2024 6:41 AM EDT [facility] Hematocrit 18.9(L) 38.5 - 50.0 % 10/08/2024 6:41 AM EDT [facility] MCV 101.6(H) 80.0 - 100.0 fL 10/08/2024 6:41 AM EDT [facility] MCH 36.9(H) 27.0 - 33.0 pg 10/08/2024 6:41 AM EDT [facility] MCHC 36.3(H) 32.0 - 36.0 g/dL 10/08/2024 6:41 AM EDT [facility] RDW 17.0(H) 11.0 - 15.0 % 10/08/2024 6:41 AM EDT [facility] Platelets 34(L) 140 - 400 10E3/uL 10/08/2024 6:41 AM EDT [facility] Comment: Specimen checked for clots. None detected. Slide Reviewed for PLT Clumps. None Seen. Platelet Estimate Decreased 10/08/2024 6:41 AM EDT [facility] MPV 8.4 7.5 - 11.5 fL 10/08/2024 6:41 AM EDT [facility] Whole Blood 10/08/2024 5:36 AM EDT 10/08/2024 5:53 AM EDT [facility] - 10/08/2024 6:41 AM EDT Peripheral blood smear was scanned per review criteria approved by the laboratory medical health researcher. us Eileen Schroeder MD, PhD LAB BLOOD ORDERABLES Final Result Performing Organization Address City/[facility]/ZIP Co de Phone Number [facility] [address] [facility] * Vancomycin, random (10/08/2024 5:36 AM EDT) Vancomycin Random 16.0 ug/mL 10/08/2024 6:20 AM EDT [facility] Comment:Reference range not established for this test. Plasma 10/08/2024 5:36 AM EDT 10/08/2024 5:52 AM EDT us Jodi Ortiz PharmD LAB BLOOD ORDERABLES Final Result Performing Organization Address [facility] Co de Phone Number [facility] [address] [facility]. [address] * Urine Drug Confirmation (10/07/2024 10:50 PM EDT) BARBITURATES NOT PRESENT 10/09/2024 1:33 PM EDT [facility] BENZODIAZEPINES PRESENT 1:33 PM EDT [facility] Nordiazepam 3 ng/mL 10/09/2024 1:33 PM EDT [facility] Temazepam 6 ng/mL 10/09/2024 1:33 PM EDT [facility] CANNABINOIDS NOT PRESENT 10/09/2024 1:33 PM EDT [facility] GROUP CONTRACT ANALYST STIMULANTS NOT PRESENT 1:33 PM EDT [facility] OPIOID ANALGESICS PRESENT 025 1:33 PM EDT [facility] Oxycodone 300 ng/mL 10/09/2024 1:33 PM EDT [facility] Oxymorphone 32 ng/mL 10/09/2024 1:33 PM EDT [facility] Tramadol >1000 ng/mL 10/09/2024 1:33 PM EDT [facility] OPIOID ANTAGONISTS NOT PRESENT 10/09 1:33 PM EDT [facility] SEDATIVES/MUSCLE RELAXANTS NOT PRESENT 10/09/2024 1:33 PM EDT [facility] TRICYCLIC ANTIDEPRESSANTS NOT PRESENT 10/09/2024 1:33 PM EDT [facility] Urine 10/07/2024 10:5 0 PM EDT 10/08/2024 3:00 AM EDT Gerri Peterson MD URINE ORDERABLES Final Result Performing Organization Address [facility] Co de Phone Number [facility] [address] [facility] * Giardia Cryptosporidium Antigens (10/07/2024 10:50 PM EDT) Cryptosporidium Ag Negative Negative 2024 7:59 AM EDT [facility] Giardia Ag Negative Negative 10/08/2024 7:59 AM EDT [facility] Comment: Detection of Giardia and Cryptosporidium antigen is more sensitive and specific than microscopy. Because antigens are shed continuously, repeat testing is rarely warranted. Feces 10/07/2024 10:5 0 PM EDT 10/08/2024 1:53 AM EDT Comment:F Bisi Hernandez DO MICROBIOLOGY - GENERAL ORDERABLE S Final Result Performing Organization Address [facility] de Phone Number [facility] [address] [facility] * (ABNORMAL) Urine Drug Screen Reflex to Confirmation (10/07/2024 10:50 PM EDT) Amphetamine, 500 ng/mL Cutoff Negative Negative 10/08/2024 3:00 AM EDT [facility] Barbiturates UR, 300 ng/mL Cutoff Negative Negative 10/08/2024 3:00 AM EDT [facility] Buprenorphine, 5 ng/mL Cutoff Negative Negative 10/08/2024 3:00 AM EDT [facility] Benzodiazepines UR, 300 ng/mL Cutoff Negative Negative 10/08/2024 3:00 AM EDT [facility] Cocaine UR, 300 ng/mL Cutoff Negative Negative 10/08/2024 3:00 AM EDT [facility] Methadone, UR, 300 ng/mL Cutoff Negative Negative 10/08/2024 3:00 AM EDT [facility] Opiates UR, 300 ng/mL Cutoff Negative Negative 10/08/2024 3:00 AM EDT [facility] Oxycodone, 100 ng/mL Cutoff Presumptive Positive(A) Negative 10/08/2024 3:00 AM EDT [facility] Tricyclic Antidepressants, 300 ng/mL Cutoff Negative Negative 10/08/2024 3:00 AM EDT [facility] Comment:This test has been d eveloped and its performance characteristics determined by [facility] which is certified under the Clinical [...] Cutoff Negative Negative 10/08/2024 3:00 AM EDT [facility] Comment:This is a screening method only and may be associated with false positive and/or false negative results. Results are not definitive without additional confirmatory testing by mass spectrometry. Fentanyl, 2 ng/mL Cutoff Negative Negative 10/08/2024 3:00 AM EDT [facility] Comment:This test has been d eveloped and its performance characteristics determined by [facility] which is certified under the Clinical [...] PM EDT 10/08/2024 2:08 AM EDT Narrative [facility] - 10/08/2024 3:00 AM EDT CONFIRMATION TO FOLLOW us Gerri Peterson MD URINE ORDERABLES Final Result [facility] [address] [place], [place] [address] * Comprehensive Drug Screen (10/07/2024 10:50 PM EDT) Creatinine, Ur CANCELED mg/dL 10/08/2024 7:09 AM EDT [facility] Comment:The released value 8 7.30 was canceled by YAQUELIN on 10/08/2024 07:09 BARBITURATES CANCELED [facility] Butalbital CANCELED [facility] Phenobarbital CANCELED [facility] Secobarbital CANCELED [facility] BENZODIAZEPINES CANCELED [facility] Alprazolam CANCELED [facility] Clonazepam CANCELED [facility] Diazepam CANCELED [facility] Alpha-Hydroxyalprazo mcknight CANCELED [facility] Lorazepam CANCELED [facility] Midazolam CANCELED [facility] Nordiazepam CANCELED [facility] Oxazepam CANCELED [facility] Temazepam CANCELED [facility] CANNABINOIDS CANCELED [facility] THC-COOH CANCELED [facility] GROUP CONTRACT ANALYST STIMULANTS CANCELED [facility] Cocaine Metabolite(benzoylec gonine) CANCELED [facility] Amphetamine CANCELED [facility] Methamphetamine CANCELED [facility] MDA CANCELED [facility] MDEA CANCELED [facility] Phencyclindine (PCP) CANCELED [facility] OPIOID ANALGESICS CANCELED [facility] Heroin Metabolite(6-RAMONA) CANCELED [facility] Codeine CANCELED [facility] Morphine CANCELED [facility] Hydrocodone CANCELED [facility] Hydromorphone CANCELED [facility] Oxycodone CANCELED [facility] Oxymorphone CANCELED [facility] Meperidine CANCELED [facility] Normeperidine CANCELED [facility] Methadone CANCELED [facility] Methadone Metabolite (EDDP) CANCELED [facility] Tramadol CANCELED [facility] Fentanyl CANCELED [facility] Norfentanyl CANCELED [facility] Sufentanil CANCELED [facility] OPIOID ANTAGONISTS CANCELED [facility] Buprenorphine CANCELED [facility] Norbuprenorphine CANCELED [facility] Naltrexone CANCELED [facility] Naloxone [facility] SEDATIVES/MUSCLE RELAXANTS [facility] Carisoprodol [facility] Meprobamate [facility] TRICYCLIC ANTIDEPRESSANTS [facility] Amitriptyline [facility] Clomipramine [facility] Desipramine [facility] Doxepin [facility] Imipramine [facility] Nortriptyline [facility] Urine Creatinine CANCELED mg/dL [facility] Nitrite CANCELED [facility] Glutaraldehyde CANCELED [facility] pH CANCELED 10/08/2024 7:09 AM EDT [facility] Comment:The released value 5 .6 was canceled by YAQUELIN on 10/08/2024 07:09 Specific [place] CANCELED 10/09/19 7:09 AM EDT [facility] Comment:The released value 1 .009 was canceled by YAQUELIN on 10/08/2024 07:09 Bleach CANCELED [facility] Pyridinium Chlorochromate CANCELED [facility] Urine 10/07/2024 10:5 0 PM EDT 10/08/2024 2:07 AM EDT Narrative [facility] - 10/08/2024 7:09 AM EDT See accn [id number] Gerri Peterson MD URINE ORDERABLES Edited Result - Final [facility] [address] * Ova and Parasite Comprehensive w/ Giardia/Crypto (10/07/2024 10:50 PM EDT) O & P Method: Concentration and Trichrome Stain [facility] Results No Amoeba, Ova, Or Parasites Seen. -- O and P examination of additional specimens is recommended only for symptomatic patients, immunosuppressed patients or those with an appropriate travel history. [facility] Feces FECES / Unknown 10/07/2024 1 0:50 PM EDT 10/08/2024 1:53 AM EDT Comment:F Bisi Hernandez DO MICROBIOLOGY - GENERAL ORDERABLE S Final Result Performing Organization Address City/State/ZIP Tn de Phone Number [facility] [address] [place] [address], [facility] * Enteric Pathogen Panel (10/07/2024 10:50 PM EDT) Campylobacter Group (C. ecoli, C. jejuni, C. trino) Not Detected Not Detected 10/08/2024 4:40 AM EDT [facility] Salmonella species Not Detected Not Detected 10/08/2024 4:40 AM EDT [facility] Shigella species Not Detected Not Detected 10/08/2024 4:40 AM EDT [facility] Vibrio Group (Vibrio cholerae, Vibrio parahaemolyticus) Not Detected Not Detected 10/08/2024 4:40 AM EDT [facility] Yersinia enterocolitica Not Detected Not Detected 10/08/2024 4:40 AM EDT [facility] Shiga toxin 1 Not Detected Not Detected 10/08/2024 4:40 AM EDT [facility] Shiga toxin 2 Not Detected Not Detected 10/08/2024 4:40 AM EDT [facility] Norovirus Not Detected Not Detected 10/08/2024 4:40 AM EDT [facility] Rotavirus Not Detected Not Detected 10/08/2024 4:40 AM EDT [facility] Comment: The Enteric Pathogen [...] ORDERABLE S Final Result Performing Organization Address City/State/[facility] Co de Phone Number [facility] [address] * Hepatitis C Antibody (10/07/2024 6:38 PM EDT) HCV Ab Nonreactive Nonreactive 10/07/2024 7:56 PM EDT [facility] Comment:Health Department no tified in accordance with reportable infectious disease guidelines. Serum 10/07/2024 6:38 PM EDT 10/07/2024 6:52 PM EDT [facility] - 10/07/2024 7:56 PM EDT Antibodies to HCV not detected; does not exclude the possibility of exposure to HCV. Gerri Peterson MD LAB BLOOD ORDERABLES Final Resu lt Performing Organization Address [facility] Co de Phone Number [facility] [address] [facility]. [address] * Hepatitis B Surface Antibody, Quantitati (10/07/2024 6:38 PM EDT) Hep B S Ab Nonreactive Nonreactive 10/07/2024 8:00 PM EDT [facility] HBSAB NUMBER 7.88 0.00 - 7.99 mIU/mL 10/07/2024 8:00 PM EDT [facility] Serum 10/07/2024 6:38 PM EDT 10/07/2024 6:52 PM EDT Narrative [facility] - 10/07/2024 8:00 PM EDT Individual is considered not immune to HBV infection. Gerri Peterson MD LAB BLOOD ORDERABLES Final Resu lt Performing Organization Address City/[facility]/ZIP Co de Phone Number [facility] [address] [facility]. [address] * Hepatitis B surface antigen (10/07/2024 6:38 PM EDT) Hep B Surface Ag Nonreactive Nonreactive 10/07/2024 7:51 PM EDT [facility] Comment:Health Department no tified in accordance with reportable infectious disease guidelines. Serum 10/07/2024 6:38 PM EDT 10/07/2024 6:52 PM EDT [facility] - 10/07/2024 7:51 PM EDT Specimen is considered negative for HBsAg. Gerri Peterson MD LAB BLOOD ORDERABLES Final Resu lt Performing Organization Address City/[facility]/ZIP Co de Phone Number [facility] [address] [facility] * Hepatitis A Antibody Total (10/07/2024 6:38 PM EDT) Anti-HAV Total (IgG + IgM) Nonreactive 10/07/2024 7:53 PM EDT [facility] Serum 10/07/2024 6:38 PM EDT 10/07/2024 6:52 PM EDT [facility] - 10/07/2024 7:53 PM EDT HAV antibodies not detected Gerri Peterson MD LAB BLOOD ORDERABLES Final Resu lt Performing Organization Address [facility] Co de Phone Number [facility] [address] [facility] * Hepatitis A IgM (10/07/2024 6:38 PM EDT) Hep A IgM Nonreactive Nonreactive 10/07/2024 7:46 PM EDT [facility] Serum 10/07/2024 6:38 PM EDT 10/07/2024 6:52 PM EDT [facility] - 10/07/2024 7:46 PM EDT IgM anti-HAV not detected. Does not exclude the possibility of exposure to or infection with HAV. Levels of IgM anti-HAV may be below the cut-off in early infection. Gerri Peterson MD LAB BLOOD ORDERABLES Final Resu lt Performing Organization Address City/[facility]/ZIP Co de Phone Number [facility] [address] [facility] * (ABNORMAL) Lipid Profile (10/07/2024 6:37 PM EDT) Non-HDL Cholesterol, Calculated See Note 0 - 129 mg/dL 10/07/2024 7:42 PM EDT [facility] Comment: Desirable: < 130 mg/dL Above Desirable: 130-159 mg/dL Borderline High: 160-189 mg/dL High: 190-219 mg/dL Very High: > 219 mg/dL Unable to calculate result either because contributing result(s) are outside of reportable range or are not available. Cholesterol, Total <25 0 - 200 mg/dL 10/07/2024 7:42 PM EDT [facility] Triglycerides 30 10 - 149 mg/dL 10/07/2024 7:42 PM EDT [facility] HDL 4(L) 60 - 92 mg/dL 10/07/2024 7:42 PM EDT [facility] Comment: LIPID PROFILE INTERPRETATION [...] Cholesterol See Note mg/dL 7:42 PM EDT [facility] Comment:Unable to calculate result either because contributing result(s) are outside of reportable range or are not available. Plasma 10/07/2024 6:37 PM EDT 10/07/2024 7:06 PM EDT [facility] - 10/07/2024 7:42 PM EDT LDL cholesterol calculated using the Friedewald equation. us Gerri Peterson MD LAB BLOOD ORDERABLES Final Resu lt [facility] [address] [place] [address], [facility] * (ABNORMAL) Alpha 1 Antitrypsin AAT Quant & Mutation (10/07/2024 6:37 PM EDT) A-1 Antitrypsin 99(L) 101 - 187 mg/dL 10/09/2024 4:28 AM EDT [facility] A-1 Antitrypsin Pheno Comment 10/10/2024 4:05 PM EDT [facility] Comment: A1A Phenotype is consistent with a heterozygous phenotype consisting of one M (normal) allele and one allele that cannot be identified at this time. The unknown allele is not consistent with Z (deficient), S (deficient), or F (deficient). MM Phenotype is considered to be normal , producing normal serum levels of gjkfu-2-vnoormho inhibitor and not associated with clinical disease. [...] - 10/10/2024 4:08 PM EDT PERFORMED AT: [facility] [id number] BSS SOLUTION ARCHITECT: Bassam Khalil, PhD PHONE: [phone] PERFORMED AT: [facility] [id number] BSS SOLUTION ARCHITECT: Mandy Abdul MD PHONE: [phone] Result [facility] Gerri Peterson MD LAB BLOOD ORDERABLES Final Resu lt [facility] [address] [facility] * (ABNORMAL) CMV IgG Antibody (10/07/2024 6:37 PM EDT) Pathologist [facility] CMV IgG Positive(A ) Negative 10/07/2024 8:26 PM EDT [facility] CMV IGG NUM 8.40(H) 0.00 - 0.59 U/mL 10/07/2024 8:26 PM EDT [facility] Serum 10/07/2024 6:37 PM EDT 10/07/2024 6:50 PM EDT Gerri Peterson MD LAB BLOOD ORDERABLES Final Resu lt Performing Organization Address [facility]/ZIP Co de Phone Number [facility] [address] [facility] * HIV-1 and HIV-2 Antibodies w Reflex (10/07/2024 6:37 PM EDT) Pathologist [facility] HIV 1+2 AB/AGN Nonreactive Nonreactive 10/07/2024 7:54 PM EDT [facility] Serum 10/07/2024 6:37 PM EDT 10/07/2024 7:06 PM EDT Narrative [facility] - 10/07/2024 7:54 PM EDT \HIVRNR Result [facility] Gerri Peterson MD LAB BLOOD ORDERABLES Final Resu lt [facility] [address] [facility] * TSH (Thyroid Stimulating Hormone) (10/07/2024 6:37 PM EDT) Pathologist [facility] TSH 0.81 0.45 - 4.12 uIU/mL 10/07/2024 8:17 PM EDT [facility] Serum 10/07/2024 6:37 PM EDT 10/07/2024 6:50 PM EDT Gerri Peterson MD LAB BLOOD ORDERABLES Final Resu lt Performing Organization Address City/[facility] Co de Phone Number [facility] [address] [place] [address] * Katie-Watkins virus early antigen antibody, IgG (10/07/2024 6:37 PM EDT) [facility] EBV Early Antigen Ab, IgG <9.0 0.0 - 8.9 U/mL 10/09/2024 2:16 PM EDT [facility] Comment: Negative < 9.0 Equivocal 9.0 - 10.9 Positive >10.9 Serum Frozen 10/07/2024 6:37 PM EDT 10/09/2024 3:07 PM EDT Narrative [facility] - 10/09/2024 3:07 PM EDT PERFORMED AT: [facility] [address] [id number] BSS SOLUTION ARCHITECT: Bassam Khalil, PhD PHONE: [phone] Gerri Peterson MD LAB BLOOD ORDERABLES Final Resu lt Performing Organization Address [facility] de Phone Number [facility] [address] [place] [address] * (ABNORMAL) Varicella zoster antibody, IgG (10/07/2024 6:37 PM EDT) Pathologist [facility] Varicella IgG Positive( A) Negative S/CO 10/07/2024 8:34 PM EDT [facility] Comment:Result indicates the presence [...] - 0.99 S/CO 10/07/2024 8:34 PM EDT [facility] Serum 10/07/2024 6:37 PM EDT 10/07/2024 6:50 PM EDT Gerri Peterson MD LAB BLOOD ORDERABLES Final Resu lt Performing Organization Address [facility] de Phone Number [facility] [address] [place] [address] * Toxoplasma gondii antibody, IgG (10/07/2024 6:37 PM EDT) Toxoplasma Gondii IgG <3.0 0.0 - 7.1 IU/mL 10/09/2024 7:53 AM EDT [facility] Comment: Negative <7.2 Equivocal 7.2 - 8.7 Positive >8.7 Serum 10/07/2024 6:37 PM EDT 10/09/2024 8:07 AM EDT Narrative [facility] - 10/09/2024 8:07 AM EDT PERFORMED AT: [facility] [id number] BSS SOLUTION ARCHITECT: Bassam Khalil, PhD PHONE: [phone] Gerri Peterson MD LAB BLOOD ORDERABLES Final Resu lt Performing Organization Address [facility] de Phone Number [facility] [address] [place] [address]. [address] * Syphilis Screening (Trepia) (10/07/2024 6:37 PM EDT) Treponema Pallidum Negative Negative 10/07/2024 8:27 PM EDT [facility] Comment: No serological evidence of infection with Treponema pallidum (incubating or early primary syphilis cannot be excluded). Serum 10/07/2024 6:37 PM EDT 10/07/2024 6:50 PM EDT Gerri Peterson MD LAB BLOOD ORDERABLES Final Resu lt [facility] [address] [facility]. [address] * Strongyloides Ab (10/07/2024 6:37 PM EDT) Strongyloides Ab Negative Negative 10/11/19 11:51 AM EDT [facility] Serum 10/07/2024 6:37 PM EDT 10/10/2024 12:07 PM EDT Narrative [facility] - 10/10/2024 12:07 PM EDT PERFORMED AT: [facility] [id number] BSS SOLUTION ARCHITECT: Mandy Abdul MD PHONE: [phone] us Gerri Peterson MD LAB BLOOD ORDERABLES Final Resu lt Performing Organization Address [facility]/ZIP Co de Phone Number [facility] [address] [facility]. [address] * Phosphatidylethanol Confirmation, B (10/07/2024 6:37 PM EDT) PETH 16:0/18.1 (POPETH) <10 Cutoff: 10 ng/mL 10/10/2024 10:42 AM EDT [facility] Comment: Phosphatidylethanol (PEth) homologues [...] Cutoff: 10 ng/mL 10/10/2024 10:42 AM EDT [facility] Comment: PEth 16:0/18:2 (PLPEth) Reference ranges are not well established PEth Interpretation Negative. 10/10 10:42 AM EDT [facility] Comment: ADDITIONAL INFORMATION This report is intended for use in clinical monitoring and management of patients. It is not intended for use in employment-related testing. This test was developed and its performance characteristics determined by [facility] in a manner consistent with CLIA requirements. This test has not been cleared or approved by the U.S. Food and Drug Administration. Test Performed by: [facility] [address] [place] [address] New Account Interviewer: Kathy Ortiz Ph.D.; CLIA# [id number] Whole Blood 10/07/2024 6:37 PM EDT 10/10/2024 10:42 AM EDT us Gerri Peterson MD LAB BLOOD ORDERABLES Final Resu lt [facility] [address] * (ABNORMAL) MMR(IgG) Panel (Measles, Mumps, Rubella) (10/07/2024 6:37 PM EDT) Mumps IgG Positive 10/07/2024 8:26 PM EDT [facility] MUMPS IGG NUM 77.80(H) 0.0 - 8.9 U/mL 10/07/2024 8:26 PM EDT [facility] Rubella IgG Scr Positive 10/07/2024 8:28 PM EDT [facility] RUB NUM 3.04(H) 0.00 - 0.89 INDEX 10/07/2024 8:28 PM EDT [facility] Rubeola Ab, IgG Positive 10/07/2024 8:26 PM EDT [facility] RUB IGG NUM 192.00(H) 0.00 - 13.40 U/mL 10/07/2024 8:26 PM EDT [facility] Serum 10/07/2024 6:37 PM EDT 10/07/2024 6:50 PM EDT Narrative [facility] - 10/07/2024 8:28 PM [...] ORDERABLES Final Resu lt Performing Organization Address [facility] Co de Phone Number [facility] [address] [place] [address]. [address] * IgA (10/07/2024 6:37 PM EDT) IgA 227.0 70.0 - 400.0 mg/dL 10/08/2024 11:07 AM EDT [facility] Comment:Please interpret the se findings in conjunction with clinical findings, protein electrophoresis, and immunotyping/immunofixation results. Serum 10/07/2024 6:37 PM EDT 10/07/2024 6:50 PM EDT Result [facility] Gerri Peterson MD LAB BLOOD ORDERABLES Final Resu lt Performing Organization Address [facility] Co de Phone Number [facility] [address] [place] [address]. [address] * Ethanol, Serum (10/07/2024 6:37 PM EDT) Ethanol <10 0 - 10 mg/dL 10/07/2024 8:36 PM EDT [facility] Serum 10/07/2024 6:37 PM EDT 10/07/2024 6:50 PM EDT Result [facility] Gerri Peterson MD LAB BLOOD ORDERABLES Final Resu lt Performing Organization Address [facility] Co de Phone Number [facility] [address] [place] [address]. [address] * ABO/Rh - Second (10/07/2024 6:37 PM EDT) ABO Grouping O 10/07/2024 7:16 PM EDT [facility] Rh Type Positive 10/07/2024 7:16 PM EDT [facility] Blood 10/07/2024 6:37 PM EDT 10/07/2024 6:56 PM EDT Narrative [facility] - 10/07/2024 7:18 PM EDT This is not a duplicate order. It is required that ABO be drawn twice for LIVER TRANSPLANT Gerri Peterson MD BLOOD BANK TEST ORDERABLES Denisse l Result Performing Organization Address City/[facility]/ZIP Co de Phone Number [facility] [address] * ABO/Rh- Initial (10/07/2024 6:37 PM EDT) ABO Grouping O 10/07/2024 7:59 PM EDT [facility] Rh Type Positive 10/07/2024 7:59 PM EDT [facility] Blood 10/07/2024 6:37 PM EDT 10/07/2024 7:25 PM EDT Gerri Peterson MD BLOOD BANK TEST ORDERABLES Denisse l Result Performing Organization Address City/[facility] Co de Phone Number [facility] [address] [facility] * X-ray Mandible minimum 4-views (10/07/2024 [...] EXAM: US ABDOMEN COMPLETE EXAM: US DUPLEX [id number] COMPLETE INDICATION: elevated bilirubin COMPARISON: Ultrasound and [...] EXAM: US ABDOMEN COMPLETE EXAM: US DUPLEX [id number] COMPLETE INDICATION: elevated bilirubin COMPARISON: Ultrasound and [...] 4:26 PM EDT us Bisi Hernandez DO [facility] US ORDERABLES Final Result * US Duplex Rcg-Rrp-Afnngip Comp (10/07/2024 3:48 PM EDT) Anatomical Region [...] EXAM: US ABDOMEN COMPLETE EXAM: US DUPLEX [id number] COMPLETE INDICATION: elevated bilirubin COMPARISON: Ultrasound and [...] EXAM: US ABDOMEN COMPLETE EXAM: US DUPLEX [id number] COMPLETE INDICATION: elevated bilirubin COMPARISON: Ultrasound and [...] DO IMG US ORDERABLES Final Result * CARIAS Rhythm Strip - Scan (10/07/2024 3:30 PM [...] MD, PhD LAB BLOOD ORDERABLES Final Result [facility] [address] * (ABNORMAL) Hepatic Function Panel (10/07/2024 6:00 AM EDT) Total Bilirubin 9.7(H) 0.0 - 1.5 mg/dL 10/07/2024 7:10 AM EDT [facility] Bilirubin, Direct 5.21(H) 0.00 - 0.40 mg/dL 10/07/2024 7:10 AM EDT [facility] AST 39 13 - 39 U/L 10/07/2024 7:10 AM EDT [facility] ALT 18 7 - 52 U/L 10/07/2024 7:10 AM EDT [facility] Alkaline Phosphatase 98 36 - 125 U/L 10/07/2024 7:10 AM EDT [facility] Total Protein 4.8(L) 6.4 - 8.9 g/dL 10/07/2024 7:10 AM EDT [facility] Albumin 3.6 3.5 - 5.7 g/dL 10/07/2024 7:10 AM EDT [facility] Bilirubin, Indirect 4.49(H) 0.00 - 1.10 mg/dL 10/07/2024 7:10 AM EDT [facility] Plasma 10/07/2024 6:00 AM EDT 10/07/2024 6:39 AM EDT us Eileen Schroeder MD, PhD LAB BLOOD ORDERABLES Final Result [facility] [address] [facility]. [address] * Magnesium (10/07/2024 6:00 AM EDT) Magnesium 1.7 1.5 - 2.5 mg/dL 10/07/2024 7:10 AM EDT [facility] Plasma 10/07/2024 6:00 AM EDT 10/07/2024 6:39 AM EDT Eileen Schroeder MD, PhD LAB BLOOD ORDERABLES Final Result [facility] [address] [place] [address], [facility] * (ABNORMAL) Renal Function Panel w/EGFR (10/07/2024 6:00 AM EDT) Sodium 132(L) 133 - 146 mmol/L 10/07/2024 7:10 AM EDT [facility] Potassium 3.9 3.5 - 5.3 mmol/L 10/07/2024 7:10 AM EDT [facility] Chloride 103 98 - 110 mmol/L 10/07/2024 7:10 AM EDT [facility] CO2 19(L) 21 - 33 mmol/L 10/07/2024 7:10 AM EDT [facility] Anion Gap 10 3 - 16 mmol/L 10/07/2024 7:10 AM EDT [facility] BUN 64(H) 7 - 25 mg/dL 10/07/2024 7:10 AM EDT [facility] Creatinine 3.38(H) 0.60 - 1.30 mg/dL 10/07/2024 7:10 AM EDT [facility] Glucose 111(H) 70 - 100 mg/dL 10/07/2024 7:10 AM EDT [facility] Calcium 9.1 8.6 - 10.3 mg/dL 10/07/2024 7:10 AM EDT [facility] Phosphorus 4.2 2.1 - 4.7 mg/dL 10/07/2024 7:10 AM EDT [facility] Albumin 3.6 3.5 - 5.7 g/dL 10/07/2024 7:10 AM EDT [facility] Osmolality, Calculated 293 278 - 305 mOsm/kg 10/07/2024 7:10 AM EDT [facility] EGFR 22 10/07/2024 7:10 AM EDT [facility] Comment:As of 2021, the [...] MD, PhD LAB BLOOD ORDERABLES Final Result [facility] [address] [place] [address], [facility] * (ABNORMAL) CBC (10/07/2024 6:00 AM EDT) WBC 3.3(L) 3.8 - 10.8 10E3/uL 10/07/2024 7:55 AM EDT [facility] RBC 2.06(L) 4.20 - 5.80 10E6/uL 10/07/2024 7:55 AM EDT [facility] Hemoglobin 7.4(L) 13.2 - 17.1 g/dL 10/07/2024 7:55 AM EDT [facility] Hematocrit 21.5(L) 38.5 - 50.0 % 10/07/2024 7:55 AM EDT [facility] MCV 104.1(H) 80.0 - 100.0 fL 10/07/2024 7:55 AM EDT [facility] MCH 35.8(H) 27.0 - 33.0 pg 10/07/2024 7:55 AM EDT [facility] MCHC 34.4 32.0 - 36.0 g/dL 10/07/2024 7:55 AM EDT [facility] RDW 17.5(H) 11.0 - 15.0 % 10/07/2024 7:55 AM EDT [facility] Platelets 35(L) 140 - 400 10E3/uL 10/07/2024 7:55 AM EDT [facility] Comment: Specimen checked for clots. None detected. Slide Reviewed for PLT Clumps. None Seen. _Platelet Morphology Normal _Platelets Appear Decreased Platelet Estimate Decreased 10/07/2024 7:55 AM EDT [facility] MPV 8.0 7.5 - 11.5 fL 10/07/2024 7:55 AM EDT [facility] Whole Blood 10/07/2024 6:00 AM EDT 10/07/2024 6:40 AM EDT [facility] - 10/07/2024 7:55 AM EDT Peripheral blood smear was scanned per review criteria approved by the laboratory medical health researcher. Eileen Schroeder MD, PhD LAB BLOOD ORDERABLES Final Result Performing Organization Address [facility] Co de Phone Number [facility] [address] [facility]. [address] * AFP Tumor Marker (10/07/2024 6:00 AM EDT) [facility] AFP-Tumor Marker 2.0 0.0 - 9.0 ng/mL 10/07/2024 7:11 AM EDT [facility] Serum 10/07/2024 6:00 AM EDT 10/07/2024 6:39 AM EDT [facility] - 10/07/2024 7:11 AM EDT The testing method for AFP is a chemiluminescent immunoassay manufactured by [employer] Concentrations of AFP obtained by different assay methods or kits may vary and cannot be used interchangeably. AFP results cannot be interpreted as absolute evidence of the presence or absence of malignant disease. Shila Rivera MD LAB BLOOD ORDERABLES Final Resul t Performing Organization Address [facility]/ZIP Co de Phone Number [facility] [address]. [address] * Vancomycin, random (10/07/2024 6:00 AM EDT) Pathologist [facility] Vancomycin Random 21.1 ug/mL 10/07/2024 7:08 AM EDT [facility] Comment:Reference range not established for this test. Plasma 10/07/2024 6:00 AM EDT 10/07/2024 6:39 AM EDT Kiet FreireD LAB BLOOD ORDERABLES Final Re sult [facility] [address] * Osmolality (10/06/2024 2:50 PM EDT) Osmolality, Measured 304 278 - 305 mOsm/kg 10/06/2024 3:49 PM EDT [facility] Serum 10/06/2024 2:50 PM EDT 10/06/2024 2:56 PM EDT Chari Vanegas MD LAB BLOOD ORDERABLES Final Resul t Performing Organization Address [facility] Co de Phone Number [facility] [address] * CT Head WO contrast (10/06/2024 [...] Eileen Schroeder MD, PhD IMG CT ORDERABLES [facility] al Result * Chloride, urine, random (10/06/2024 1:25 PM EDT) Chloride, Ur <15 mmol/L 10/06/2024 1:56 PM EDT [facility] Comment:Reference range not established for this test. Urine 10/06/2024 1:25 PM EDT 10/06/2024 1:32 PM EDT Chari Vanegas MD URINE ORDERABLES Final Result [facility] [address] * Potassium, urine, random (10/06/2024 1:25 PM EDT) Potassium Urine Random 50.0 mmol/L 10/06/2024 1:56 PM EDT [facility] Comment:Reference range not established for this test. Urine 10/06/2024 1:25 PM EDT 10/06/2024 1:32 PM EDT us Chari Vanegas MD URINE ORDERABLES Final Result Performing Organization Address [facility] Co de Phone Number [facility] [address] * Sodium, urine, random (10/06/2024 1:25 PM EDT) Sodium, Ur <10 mmol/L 10/06/2024 1:56 PM EDT [facility] Comment:Reference range not established for this test. Urine 10/06/2024 1:25 PM EDT 10/06/2024 1:32 PM EDT us Chari Vanegas MD URINE ORDERABLES Final Result Performing Organization Address [facility] Co de Phone Number [facility] [address] * Creatinine, Urine, Random (10/06/2024 1:25 PM EDT) Creatinine, Urine 87.40 mg/dL 10/06/2024 1:56 PM EDT [facility] Comment:Reference range not established for this test. Urine 10/06/2024 1:25 PM EDT 10/06/2024 1:32 PM EDT us Chari Vanegas MD URINE ORDERABLES Final Result Performing Organization Address [facility] Co de Phone Number [facility] [address] * Osmolality, Urine (10/06/2024 1:25 PM EDT) Osmolality, Ur 386 50 - 1,200 mOsm/kg 10/06/2024 1:55 PM EDT [facility] Urine 10/06/2024 1:25 PM EDT 10/06/2024 1:32 PM EDT us Chari Vanegas MD URINE ORDERABLES Final Result Performing Organization Address [facility] Co de Phone Number [facility] [address] * Urine Drug Confirmation (10/06/2024 11:51 AM EDT) BARBITURATES NOT PRESENT 10/09/2024 3:23 PM EDT [facility] Comment:Results were recheck ed. BENZODIAZEPINES PRESENT 3:23 PM EDT [facility] Nordiazepam 3 ng/mL 10/09/2024 3:23 PM EDT [facility] Comment:Results were recheck ed. Temazepam 8 ng/mL 10/09/2024 3:23 PM EDT [facility] Comment:Results were recheck ed. CANNABINOIDS NOT PRESENT 10/09/2024 3:23 PM EDT [facility] GROUP CONTRACT ANALYST STIMULANTS NOT PRESENT 3:23 PM EDT [facility] OPIOID ANALGESICS PRESENT 025 3:23 PM EDT [facility] Oxycodone 329 ng/mL 10/09/2024 3:23 PM EDT [facility] Oxymorphone 61 ng/mL 10/09/2024 3:23 PM EDT [facility] Tramadol >1000 ng/mL 10/09/2024 3:23 PM EDT [facility] OPIOID ANTAGONISTS NOT PRESENT 10/09 3:23 PM EDT [facility] SEDATIVES/MUSCLE RELAXANTS NOT PRESENT 10/09/2024 3:23 PM EDT [facility] TRICYCLIC ANTIDEPRESSANTS NOT PRESENT 10/09/2024 3:23 PM EDT [facility] Urine 10/06/2024 11:5 1 AM EDT 10/06/2024 1:13 PM EDT us Bisi Hernandez DO URINE ORDERABLES Final Result [facility] [address] * (ABNORMAL) Urine Drug Screen Reflex to Confirmation (10/06/2024 11:51 AM EDT) Amphetamine, 500 ng/mL Cutoff Negative Negative 10/06/2024 1:13 PM EDT [facility] Barbiturates UR, 300 ng/mL Cutoff Negative Negative 10/06/2024 1:13 PM EDT [facility] Buprenorphine, 5 ng/mL Cutoff Negative Negative 10/06/2024 1:13 PM EDT [facility] Benzodiazepines UR, 300 ng/mL Cutoff Negative Negative 10/06/2024 1:13 PM EDT [facility] Cocaine UR, 300 ng/mL Cutoff Negative Negative 10/06/2024 1:13 PM EDT [facility] Methadone, UR, 300 ng/mL Cutoff Negative Negative 10/06/2024 1:13 PM EDT [facility] Opiates UR, 300 ng/mL Cutoff Negative Negative 10/06/2024 1:13 PM EDT [facility] Oxycodone, 100 ng/mL Cutoff Presumptive Positive(A) Negative 10/06/2024 1:13 PM EDT [facility] Tricyclic Antidepressants, 300 ng/mL Cutoff Negative Negative 10/06/2024 1:13 PM EDT [facility] Comment:This test has been d eveloped and its performance characteristics determined by [facility] which is certified under the Clinical [...] Cutoff Negative Negative 10/06/2024 1:13 PM EDT [facility] Comment:This is a screening method only and may be associated with false positive and/or false negative results. Results are not definitive without additional confirmatory testing by mass spectrometry. Fentanyl, 2 ng/mL Cutoff Negative Negative 10/06/2024 1:13 PM EDT [facility] Comment:This test has been d eveloped and its performance characteristics determined by [facility] which is certified under the Clinical [...] AM EDT 10/06/2024 11:58 AM EDT Narrative [facility] - 10/06/2024 1:13 PM EDT CONFIRMATION TO FOLLOW us Bisi Hernandez DO URINE ORDERABLES Final Result Performing Organization Address [facility] Co de Phone Number [facility] [address] * Chloride, urine, random (10/06/2024 11:51 AM EDT) Chloride, Ur <15 mmol/L 10/06/2024 1:13 PM EDT [facility] Comment:Reference range not established for this test. Urine 10/06/2024 11:5 1 AM EDT 10/06/2024 11:57 AM EDT Bisi Hernandez DO URINE ORDERABLES Final Result Performing Organization Address [facility] Co de Phone Number [facility] [address] * Potassium, urine, random (10/06/2024 11:51 AM EDT) Potassium Urine Random 49.0 mmol/L 10/06/2024 1:13 PM EDT [facility] Comment:Reference range not established for this test. Urine 10/06/2024 11:5 1 AM EDT 10/06/2024 11:57 AM EDT us Bisi Hernandez DO URINE ORDERABLES Final Result Performing Organization Address [facility] Co de Phone Number [facility] [address] * Sodium, urine, random (10/06/2024 11:51 AM EDT) Sodium, Ur <10 mmol/L 10/06/2024 1:13 PM EDT [facility] Comment:Reference range not established for this test. Urine 10/06/2024 11:5 1 AM EDT 10/06/2024 11:57 AM EDT us Bisidante Hernandez DO URINE ORDERABLES Final Result [facility] [address] * Urinalysis w/Rfl to Microscopic (10/06/2024 11:51 AM EDT) Color, UA Yellow Yellow,Straw 10/06/2024 12:25 PM EDT [facility] Clarity, UA Clear Clear 10/06/2024 12:25 PM EDT [facility] Specific [place], UA 1.014 1.005 - 1.035 10/06/2024 12:25 PM EDT [facility] pH, UA 6.0 5.0 - 8.0 10/06/2024 12:25 PM EDT [facility] Protein, UA Negative Negative mg/dL 10/06/2024 12:25 PM EDT [facility] Glucose, UA Negative Negative mg/dL 10/06/2024 12:25 PM EDT [facility] Ketones, UA Negative Negative mg/dL 10/06/2024 12:25 PM EDT [facility] Bilirubin, UA Negative Negative 10/06/2024 12:25 PM EDT [facility] Blood, UA Negative Negative 10/06/2024 12:25 PM EDT [facility] Nitrite, UA Negative Negative 10/06/2024 12:25 PM EDT [facility] Urobilinogen, UA <2.0 0.2 - 1.9 mg/dL 10/06/2024 12:25 PM EDT [facility] Leukocyte Esterase, UA Negative Negative 10/06/2024 12:25 PM EDT [facility] Urine 10/06/2024 11:5 1 AM EDT 10/06/2024 11:57 AM EDT Narrative [facility] - 10/06/2024 12:25 PM EDT Microscopic testing is not performed when the dipstick is negative for blood, leukocyte, protein and nitrite. us Bisi Hernandez DO URINE ORDERABLES Final Result [facility] [address] * Lactic Acid, STAT (10/06/2024 7:38 AM EDT) Lactate 0.9 0.5 - 2.2 mmol/L 10/06/2024 8:05 AM EDT [facility] Plasma 10/06/2024 7:38 AM EDT 10/06/2024 7:42 AM EDT Chari Vanegas MD LAB BLOOD ORDERABLES Final Resul t [facility] [address] * (ABNORMAL) CBC, STAT (10/06/2024 7:37 AM EDT) WBC 5.6 3.8 - 10.8 10E3/uL 10/06/2024 8:22 AM EDT [facility] RBC 2.50(L) 4.20 - 5.80 10E6/uL 10/06/2024 8:22 AM EDT [facility] Hemoglobin 9.0(L) 13.2 - 17.1 g/dL 10/06/2024 8:22 AM EDT [facility] Hematocrit 25.3(L) 38.5 - 50.0 % 10/06/2024 8:22 AM EDT [facility] MCV 101.2(H) 80.0 - 100.0 fL 10/06/2024 8:22 AM EDT [facility] MCH 36.0(H) 27.0 - 33.0 pg 10/06/2024 8:22 AM EDT [facility] MCHC 35.6 32.0 - 36.0 g/dL 10/06/2024 8:22 AM EDT [facility] RDW 17.7(H) 11.0 - 15.0 % 10/06/2024 8:22 AM EDT [facility] Platelets 52(L) 140 - 400 10E3/uL 10/06/2024 8:22 AM EDT [facility] Comment: Specimen checked for clots. None detected. Slide Reviewed for PLT Clumps. None Seen. MPV 8.2 7.5 - 11.5 fL 10/06/2024 8:22 AM EDT [facility] Whole Blood 10/06/2024 7:37 AM EDT 10/06/2024 7:43 AM EDT us Chari Vanegas MD LAB BLOOD ORDERABLES Final Resul t [facility] [address] * (ABNORMAL) Comprehensive Metabolic Panel (10/06/2024 7:37 AM EDT) Sodium 129(L) 133 - 146 mmol/L 10/06/2024 8:16 AM EDT [facility] Potassium 4.4 3.5 - 5.3 mmol/L 10/06/2024 8:16 AM EDT [facility] Chloride 100 98 - 110 mmol/L 10/06/2024 8:16 AM EDT [facility] CO2 18(L) 21 - 33 mmol/L 10/06/2024 8:16 AM EDT [facility] Anion Gap 11 3 - 16 mmol/L 10/06/2024 8:16 AM EDT [facility] BUN 62(H) 7 - 25 mg/dL 10/06/2024 8:16 AM EDT [facility] Creatinine 3.40(H) 0.60 - 1.30 mg/dL 10/06/2024 8:16 AM EDT [facility] Glucose 98 70 - 100 mg/dL 10/06/2024 8:16 AM EDT [facility] Calcium 9.5 8.6 - 10.3 mg/dL 10/06/2024 8:16 AM EDT [facility] Total Bilirubin 14.3(H) 0.0 - 1.5 mg/dL 10/06/2024 8:16 AM EDT [facility] AST 57(H) 13 - 39 U/L 10/06/2024 8:16 AM EDT [facility] ALT 29 7 - 52 U/L 10/06/2024 8:16 AM EDT [facility] Alkaline Phosphatase 158(H) 36 - 125 U/L 10/06/2024 8:16 AM EDT [facility] Total Protein 5.6(L) 6.4 - 8.9 g/dL 10/06/2024 8:16 AM EDT [facility] Albumin 3.6 3.5 - 5.7 g/dL 10/06/2024 8:16 AM EDT [facility] Osmolality, Calculated 286 278 - 305 mOsm/kg 10/06/2024 8:16 AM EDT [facility] EGFR 22 10/06/2024 8:16 AM EDT [facility] Comment:As of 2021, the [...] MD LAB BLOOD ORDERABLES Final Resul t [facility] [address] [place] [id number] * (ABNORMAL) Venous Blood Gas, Line/Syringe, STAT (10/06/2024 7:37 AM EDT) PH-Line Draw 7.27(L) 7.32 - 7.42 10/06/2024 7:46 AM EDT [facility] PCO2-Line Draw 36(L) 41 - 51 mm Hg 10/06/2024 7:46 AM EDT [facility] PO2-Line Draw 44(H) 25 - 40 mm Hg 10/06/2024 7:46 AM EDT [facility] HCO3-Line Draw 17(L) 24 - 28 mmol/L 10/06/2024 7:46 AM EDT [facility] CO2 Content-Line Draw 18(L) 25 - 29 mmol/L 10/06/2024 7:46 AM EDT [facility] Base Excess-Line Draw -9.6(L) -2.0 - 3.0 mmol/L 10/06/2024 7:46 AM EDT [facility] %HBO2-Line Draw 69.8 40.0 - 70.0 % 10/06/2024 7:46 AM EDT [facility] Carboxyhgb-Ludivina e Draw 0.7 % 10/06/2024 7:46 AM EDT [facility] Comment: CARBOXYHEMOGLOBIN (CO) REFERENCE RANGES: Non-Smokers: <2 % Smokers: <8 % TOXIC: >20 % Methemoglobin- Line Draw 0.3 0.0 - 1.5 % 10/06/2024 7:46 AM EDT [facility] Reduced Hemoglobin-Ludivina e Draw 29.2(H) 0.0 - 5.0 % 10/06/2024 7:46 AM EDT [facility] Venous, Line Draw 10/06/2024 7:37 AM EDT 10/06/2024 7:43 AM EDT Chari Vanegas MD LAB BLOOD ORDERABLES Final Resul t Performing Organization Address City/State/[facility] Co de Phone Number [facility] [address] [place] [address], [facility] * (ABNORMAL) Venous Blood Gas, Line/Syringe, STAT (10/06/2024 4:03 AM EDT) PH-Line Draw 7.21(L) 7.32 - 7.42 10/06/2024 4:16 AM EDT [facility] PCO2-Line Draw 41 41 - 51 mm Hg 10/06/2024 4:16 AM EDT [facility] PO2-Line Draw 32 25 - 40 mm Hg 10/06/2024 4:16 AM EDT [facility] HCO3-Line Draw 16(L) 24 - 28 mmol/L 10/06/2024 4:16 AM EDT [facility] CO2 Content-Line Draw 18(L) 25 - 29 mmol/L 10/06/2024 4:16 AM EDT [facility] Base Excess-Line Draw -10.8(L) -2.0 - 3.0 mmol/L 10/06/2024 4:16 AM EDT [facility] %HBO2-Line Draw 47.5 40.0 - 70.0 % 10/06/2024 4:16 AM EDT [facility] Carboxyhgb-Ludivina e Draw 2.0 % 10/06/2024 4:16 AM EDT [facility] Comment: CARBOXYHEMOGLOBIN (CO) REFERENCE RANGES: Non-Smokers: <2 % Smokers: <8 % TOXIC: >20 % Methemoglobin- Line Draw 0.7 0.0 - 1.5 % 10/06/2024 4:16 AM EDT [facility] Reduced Hemoglobin-Ludivina e Draw 49.8(H) 0.0 - 5.0 % 10/06/2024 4:16 AM EDT [facility] Venous, Line Draw 10/06/2024 4:03 AM EDT 10/06/2024 4:12 AM EDT us Bisi Hernandez DO LAB BLOOD ORDERABLES Final Resul t [facility] [address] [place] [address], [facility] * (ABNORMAL) Protime-INR (10/06/2024 4:01 AM EDT) Protime 21.3(H) 12.1 - 15.1 seconds 10/06/2024 4:40 AM EDT [facility] INR 1.8(H) 0.9 - 1.1 10/06/2024 4:40 AM EDT [facility] Comment: RECOMMENDED THERAPEUTIC RANGES USING INR : Stable oral anticoagulant therapy: 2.0 - 3.0 Mechanical prosthetic heart valve: 2.5 - 3.5 Recurrent acute myocardial infarction: 2.5 - 3.5 Plasma 10/06/2024 4:01 AM EDT 10/06/2024 4:11 AM EDT [employer] DO LAB BLOOD ORDERABLES Final Resul t [facility] [address] [place] [address], [facility] * (ABNORMAL) Hepatic Function Panel, AM (10/06/2024 4:01 AM EDT) Total Bilirubin 14.7(H) 0.0 - 1.5 mg/dL 10/06/2024 4:57 AM EDT [facility] Bilirubin, Direct 7.08(H) 0.00 - 0.40 mg/dL 10/06/2024 4:57 AM EDT [facility] AST 60(H) 13 - 39 U/L 10/06/2024 4:57 AM EDT [facility] ALT 31 7 - 52 U/L 10/06/2024 4:57 AM EDT [facility] Alkaline Phosphatase 162(H) 36 - 125 U/L 10/06/2024 4:57 AM EDT [facility] Total Protein 5.3(L) 6.4 - 8.9 g/dL 10/06/2024 4:57 AM EDT [facility] Albumin 3.4(L) 3.5 - 5.7 g/dL 10/06/2024 4:57 AM EDT [facility] Bilirubin, Indirect 7.62(H) 0.00 - 1.10 mg/dL 10/06/2024 4:57 AM EDT [facility] Plasma 10/06/2024 4:01 AM EDT 10/06/2024 4:22 AM EDT [facility] DO LAB BLOOD ORDERABLES Final Resul t [facility] [address] [place] [address], [facility] * Magnesium (10/06/2024 4:01 AM EDT) Magnesium 1.8 1.5 - 2.5 mg/dL 10/06/2024 4:57 AM EDT [facility] Plasma 10/06/2024 4:01 AM EDT 10/06/2024 4:22 AM EDT us Bisi Hernandez DO LAB BLOOD ORDERABLES Final Resul t [facility] [address] [place] [address], [facility] * (ABNORMAL) Renal Function Panel w/EGFR (10/06/2024 4:01 AM EDT) Sodium 129(L) 133 - 146 mmol/L 10/06/2024 4:57 AM EDT [facility] Potassium 4.7 3.5 - 5.3 mmol/L 10/06/2024 4:57 AM EDT [facility] Chloride 100 98 - 110 mmol/L 10/06/2024 4:57 AM EDT [facility] CO2 16(L) 21 - 33 mmol/L 10/06/2024 4:57 AM EDT [facility] Anion Gap 13 3 - 16 mmol/L 10/06/2024 4:57 AM EDT [facility] BUN 61(H) 7 - 25 mg/dL 10/06/2024 4:57 AM EDT [facility] Creatinine 3.49(H) 0.60 - 1.30 mg/dL 10/06/2024 4:57 AM EDT [facility] Glucose 104(H) 70 - 100 mg/dL 10/06/2024 4:57 AM EDT [facility] Calcium 9.2 8.6 - 10.3 mg/dL 10/06/2024 4:57 AM EDT [facility] Phosphorus 5.3(H) 2.1 - 4.7 mg/dL 10/06/2024 4:57 AM EDT [facility] Albumin 3.4(L) 3.5 - 5.7 g/dL 10/06/2024 4:57 AM EDT [facility] Osmolality, Calculated 286 278 - 305 mOsm/kg 10/06/2024 4:57 AM EDT [facility] EGFR 22 10/06/2024 4:57 AM EDT [facility] Comment:As of 2021, the [...] DO LAB BLOOD ORDERABLES Final Resul t [facility] [address] * (ABNORMAL) CBC (10/06/2024 4:01 AM EDT) WBC 7.6 3.8 - 10.8 10E3/uL 10/06/2024 5:16 AM EDT [facility] RBC 2.77(L) 4.20 - 5.80 10E6/uL 10/06/2024 5:16 AM EDT [facility] Hemoglobin 10.1(L) 13.2 - 17.1 g/dL 10/06/2024 5:16 AM EDT [facility] Hematocrit 28.4(L) 38.5 - 50.0 % 10/06/2024 5:16 AM EDT [facility] MCV 102.4(H) 80.0 - 100.0 fL 10/06/2024 5:16 AM EDT [facility] MCH 36.4(H) 27.0 - 33.0 pg 10/06/2024 5:16 AM EDT [facility] MCHC 35.5 32.0 - 36.0 g/dL 10/06/2024 5:16 AM EDT [facility] RDW 18.0(H) 11.0 - 15.0 % 10/06/2024 5:16 AM EDT [facility] Platelets 53(L) 140 - 400 10E3/uL 10/06/2024 5:16 AM EDT [facility] Comment:Specimen checked for clots. None detected. MPV 8.4 7.5 - 11.5 fL 10/06/2024 5:16 AM EDT [facility] Whole Blood 10/06/2024 4:01 AM EDT 10/06/2024 4:11 AM EDT [employer] LAB BLOOD ORDERABLES Final Resul t Performing Organization Address [facility] Co de Phone Number [facility] [address] [place] [address]. [address] * Hepatitis C Antibody (10/06/2024 4:01 AM EDT) HCV Ab Nonreactive Nonreactive 10/06/2024 5:12 AM EDT [facility] Comment:Health Department no tified in accordance with reportable infectious disease guidelines. Serum 10/06/2024 4:01 AM EDT 10/06/2024 4:11 AM EDT Narrative [facility] - 10/06/2024 5:12 AM EDT Antibodies to HCV not detected; does not exclude the possibility of exposure to HCV. [employer] LAB BLOOD ORDERABLES Final Resul t Performing Organization Address City/[facility]/ZIP Co de Phone Number [facility] [address] [facility] * (ABNORMAL) Hepatitis B Surface Antibody, Quantitati (10/06/2024 4:01 AM EDT) Hep B S Ab Reactive( A) Nonreactive 10/06/2024 5:16 AM EDT [facility] HBSAB NUMBER 11.50(H) 0.00 - 7.99 mIU/mL 10/06/2024 5:16 AM EDT [facility] Serum 10/06/2024 4:01 AM EDT 10/06/2024 4:11 AM EDT [facility] - 10/06/2024 5:16 AM EDT Individual is considered immune to HBV infection. [employer] LAB BLOOD ORDERABLES Final Resul t Performing Organization Address City/[facility] Co de Phone Number [facility] [address] * Hepatitis B surface antigen (10/06/2024 4:01 AM EDT) Hep B Surface Ag Nonreactive Nonreactive 10/06/2024 5:07 AM EDT [facility] Comment:Health Department no tified in accordance with reportable infectious disease guidelines. Serum 10/06/2024 4:01 AM EDT 10/06/2024 4:11 AM EDT [facility] - 10/06/2024 5:07 AM EDT Specimen is considered negative for HBsAg. [employer] LAB BLOOD ORDERABLES Final Resul t Performing Organization Address [facility] Co de Phone Number [facility] [address] [facility] * Hepatitis A Antibody Total (10/06/2024 4:01 AM EDT) Anti-HAV Total (IgG + IgM) Nonreactive 10/06/2024 5:08 AM EDT [facility] Serum 10/06/2024 4:01 AM EDT 10/06/2024 4:11 AM EDT [facility] - 10/06/2024 5:08 AM EDT HAV antibodies not detected [employer] LAB BLOOD ORDERABLES Final Resul t [facility] [address] * Hepatitis A IgM (10/06/2024 4:01 AM EDT) Hep A IgM Nonreactive Nonreactive 10/06/2024 5:02 AM EDT [facility] Serum 10/06/2024 4:01 AM EDT 10/06/2024 4:11 AM EDT Narrative [facility] - 10/06/2024 5:02 AM EDT IgM anti-HAV not detected. Does not exclude the possibility of exposure to or infection with HAV. Levels of IgM anti-HAV may be below the cut-off in early infection. [employer] LAB BLOOD ORDERABLES Final Resul t Performing Organization Address City/[facility]/ZIP Co de Phone Number [facility] [address] [facility] * (ABNORMAL) Salicylate Level (10/06/2024 4:01 AM EDT) Salicylate Lvl <3(L) 10 - 30 mg/dL 10/06/2024 4:58 AM EDT [facility] Serum 10/06/2024 4:01 AM EDT 10/06/2024 4:22 AM EDT [employer] LAB BLOOD ORDERABLES Final Resul t Performing Organization Address [facility] Co de Phone Number [facility] [address] * AFP Tumor Marker (10/06/2024 4:01 AM EDT) AFP-Tumor Marker 2.6 0.0 - 9.0 ng/mL 10/06/2024 4:55 AM EDT [facility] Serum 10/06/2024 4:01 AM EDT 10/06/2024 4:22 AM EDT Narrative [facility] - 10/06/2024 4:55 AM EDT The testing method for AFP is a chemiluminescent immunoassay manufactured by [employer] Concentrations of AFP obtained by different assay methods or kits may vary and cannot be used interchangeably. AFP results cannot be interpreted as absolute evidence of the presence or absence of malignant disease. [employer] LAB BLOOD ORDERABLES Final Resul t [facility] [address] [place] [address], [facility] * Upper Respiratory Viral/Bacterial Panel-[employer] Only (10/06/2024 3:12 AM EDT) Adenovirus Not Detected Not Detected 10/06/2024 11:38 PM EDT [facility] Coronavirus (229E,HKU1,NL63,OC 43) Not Detected Not Detected 10/06/2024 11:38 PM EDT [facility] SARS-CoV-2 Not Detected Not Detected 10/06/2024 11:38 PM EDT [facility] Human Metapneumovirus Not Detected Not Detected 10/06/2024 11:38 PM EDT [facility] Human Rhinovirus/Enterov irus Not Detected Not Detected 10/06/2024 11:38 PM EDT [facility] Influenza A Not Detected Not Detected 10/06/2024 11:38 PM EDT [facility] Influenza A H1 Not Detected Not Detected 10/06/2024 11:38 PM EDT [facility] Influenza A/H1-2009 Not Detected Not Detected 10/06/2024 11:38 PM EDT [facility] Influenza A H3 Not Detected Not Detected 10/06/2024 11:38 PM EDT [facility] Influenza B Not Detected Not Detected 10/06/2024 11:38 PM EDT [facility] Parainfluenza 1 Not Detected Not Detected 10/06/2024 11:38 PM EDT [facility] Parainfluenza 2 Not Detected Not Detected 10/06/2024 11:38 PM EDT [facility] Parainfluenza 3 Not Detected Not Detected 10/06/2024 11:38 PM EDT [facility] Parainfluenza 4 Not Detected Not Detected 10/06/2024 11:38 PM EDT [facility] Resp. Syncycial Virus A Not Detected Not Detected 10/06/2024 11:38 PM EDT [facility] Resp. Syncycial Virus B Not Detected Not Detected 10/06/2024 11:38 PM EDT [facility] Chlamydia pneumoniae Not Detected Not Detected 10/06/2024 11:38 PM EDT [facility] Mycoplasma pneumoniae Not Detected Not Detected 10/06/2024 11:38 PM EDT [facility] Comment: The Respiratory Viral-Bacterial [...] Test results have been sent to the [facility] in accordance with state requirements. For a fact sheet for healthcare providers, see https://www.fda.gov/media/748944/download. For a fact sheet for patients, see https://www.fda.gov/media/028058/download. Nasopharyngeal Swab NASOPHARYNGEAL SWAB / Unknown 10/06/2024 3:12 AM EDT 10/06/2024 5:41 PM EDT Comment:[employer] us Bisi Hernandez DO BODY FLUIDS AND STOOLS ORDERABLE S Final Result [facility] [address] * X-ray Portable Chest (10/06/2024 1:16 [...] 10/06/2024 2:33 AM EDT Bisi Hernandez DO [facility] ORDERABLE S Final Result * [...] developed and its performance characteristics determined by [facility] in a manner consistent with CLIA requirements. This test has not been cleared or approved by the U.S. Food and Drug Administration. Test Performed by: [place] [address] New Account Interviewer: Kathy Ortiz Ph.D.; CLIA# [id number] Whole Blood 10/06/2024 1:04 AM EDT 10/10/2024 3:11 AM EDT [employer] LAB BLOOD ORDERABLES Final Resul t Performing Organization Address City/[facility]/ZIP Co de Phone Number [facility] [address] * (ABNORMAL) Acetaminophen Level (10/06/2024 1:04 AM EDT) Acetaminophen Level <10(L) 10 - 30 ug/mL 10/06/2024 2:08 AM EDT [facility] Serum 10/06/2024 1:04 AM EDT 10/06/2024 1:30 AM EDT [employer] LAB BLOOD ORDERABLES Final Resul t [facility] [address] * Ethanol, Serum (10/06/2024 1:04 AM EDT) Ethanol <10 0 - 10 mg/dL 10/06/2024 2:08 AM EDT [facility] Serum 10/06/2024 1:04 AM EDT 10/06/2024 1:30 AM EDT [employer] LAB BLOOD ORDERABLES Final Resul t [facility] [address] [facility]. [address] * #2 Blood culture-Peripheral site 2 (10/06/2024 1:04 AM EDT) Culture Result No Growth After 5 Days [facility] Blood BLOOD SPECIMEN / Unknown 10/06/2024 1:04 AM EDT 10/06/2024 4:57 AM EDT Narrative [facility] - 10/11/2024 5:05 AM EDT Suboptimal volume of blood received. Interpret results with caution. Bisi Hernandez MICROBIOLOGY - GENERAL ORDERABLE S Final Result Performing Organization Address City/[facility]/ZIP Co de Phone Number [facility] [address] [facility]. [address] * #1 Blood culture-Peripheral site 1 (10/06/2024 1:04 AM EDT) Culture Result No Growth After 5 Days [facility] Blood BLOOD SPECIMEN / Unknown 10/06/2024 1:04 AM EDT 10/06/2024 4:57 AM EDT Narrative [facility] - 10/11/2024 5:01 AM EDT Suboptimal volume of blood received. Interpret results with caution. Bisi Akana maría DO MICROBIOLOGY - GENERAL ORDERABLE S Final Result [facility] [address] * Ammonia (10/06/2024 1:04 AM EDT) Ammonia 77 27 - 90 ug/dL 10/06/2024 2:00 AM EDT [facility] Plasma 10/06/2024 1:04 AM EDT 10/06/2024 1:30 AM EDT [employer] LAB BLOOD ORDERABLES Final Resul t Performing Organization Address City/[facility] Co de Phone Number [facility] [address] * Thyroid Function [place] (10/06/2024 1:04 AM EDT) TSH 0.84 0.45 - 4.12 uIU/mL 10/06/2024 2:20 AM EDT [facility] Serum 10/06/2024 1:04 AM EDT 10/06/2024 1:39 AM EDT [employer] LAB BLOOD ORDERABLES Final Resul t Performing Organization Address City/[facility] Co de Phone Number [facility] [address] * (ABNORMAL) Protime-INR (10/06/2024 1:04 AM EDT) Protime 22.8(H) 12.1 - 15.1 seconds 10/06/2024 1:48 AM EDT [facility] INR 1.9(H) 0.9 - 1.1 10/06/2024 1:48 AM EDT [facility] Comment: RECOMMENDED THERAPEUTIC RANGES USING INR : Stable oral anticoagulant therapy: 2.0 - 3.0 Mechanical prosthetic heart valve: 2.5 - 3.5 Recurrent acute myocardial infarction: 2.5 - 3.5 Plasma 10/06/2024 1:04 AM EDT 10/06/2024 1:30 AM EDT us [employer] DO LAB BLOOD ORDERABLES Final Resul t [facility] [address] [facility] * Lactic Acid, STAT (10/06/2024 1:04 AM EDT) Lactate 1.2 0.5 - 2.2 mmol/L 10/06/2024 1:59 AM EDT [facility] Plasma 10/06/2024 1:04 AM EDT 10/06/2024 1:30 AM EDT us [employer] DO LAB BLOOD ORDERABLES Final Resul t Performing Organization Address [facility] Co de Phone Number [facility] [address] * (ABNORMAL) CBC, STAT (10/06/2024 1:04 AM EDT) WBC 7.9 3.8 - 10.8 10E3/uL 10/06/2024 2:36 AM EDT [facility] RBC 2.76(L) 4.20 - 5.80 10E6/uL 10/06/2024 2:36 AM EDT [facility] Hemoglobin 9.9(L) 13.2 - 17.1 g/dL 10/06/2024 2:36 AM EDT [facility] Hematocrit 28.0(L) 38.5 - 50.0 % 10/06/2024 2:36 AM EDT [facility] MCV 101.5(H) 80.0 - 100.0 fL 10/06/2024 2:36 AM EDT [facility] MCH 35.7(H) 27.0 - 33.0 pg 10/06/2024 2:36 AM EDT [facility] MCHC 35.2 32.0 - 36.0 g/dL 10/06/2024 2:36 AM EDT [facility] RDW 17.9(H) 11.0 - 15.0 % 10/06/2024 2:36 AM EDT [facility] Platelets 58(L) 140 - 400 10E3/uL 10/06/2024 2:36 AM EDT [facility] Comment: Specimen checked for clots. None detected. Slide Reviewed for PLT Clumps. None Seen. MPV 8.2 7.5 - 11.5 fL 10/06/2024 2:36 AM EDT [facility] Whole Blood 10/06/2024 1:04 AM EDT 10/06/2024 1:31 AM EDT us Bisi Hernandez DO LAB BLOOD ORDERABLES Final Resul t [facility] [address] [place] [address], [facility] * (ABNORMAL) Comprehensive Metabolic Panel (10/06/2024 1:04 AM EDT) Sodium 127(L) 133 - 146 mmol/L 10/06/2024 2:05 AM EDT [facility] Potassium 4.5 3.5 - 5.3 mmol/L 10/06/2024 2:05 AM EDT [facility] Chloride 99 98 - 110 mmol/L 10/06/2024 2:05 AM EDT [facility] CO2 18(L) 21 - 33 mmol/L 10/06/2024 2:05 AM EDT [facility] Anion Gap 10 3 - 16 mmol/L 10/06/2024 2:05 AM EDT [facility] BUN 59(H) 7 - 25 mg/dL 10/06/2024 2:05 AM EDT [facility] Creatinine 3.54(H) 0.60 - 1.30 mg/dL 10/06/2024 2:05 AM EDT [facility] Glucose 116(H) 70 - 100 mg/dL 10/06/2024 2:05 AM EDT [facility] Calcium 9.0 8.6 - 10.3 mg/dL 10/06/2024 2:05 AM EDT [facility] Total Bilirubin 14.8(H) 0.0 - 1.5 mg/dL 10/06/2024 2:05 AM EDT [facility] AST 61(H) 13 - 39 U/L 10/06/2024 2:05 AM EDT [facility] ALT 33 7 - 52 U/L 10/06/2024 2:05 AM EDT [facility] Alkaline Phosphatase 174(H) 36 - 125 U/L 10/06/2024 2:05 AM EDT [facility] Total Protein 5.2(L) 6.4 - 8.9 g/dL 10/06/2024 2:05 AM EDT [facility] Albumin 3.3(L) 3.5 - 5.7 g/dL 10/06/2024 2:05 AM EDT [facility] Osmolality, Calculated 282 278 - 305 mOsm/kg 10/06/2024 2:05 AM EDT [facility] EGFR 21 10/06/2024 2:05 AM EDT [facility] Comment:As of 2021, the [...] DO LAB BLOOD ORDERABLES Final Resul t [facility] [address] [place] [address], [facility] documented in this encounter Visit Diagnoses [...] Alcoholic cirrhosis of liver with ascites (CMS-HCC) documented in this encounter Administered Medications [...] Oral, 3 times daily, First dose on [facility] 10/09/24 at 1300 Given 10/17/2024 8:49 AM EDT 10 mg Given 10/16/2024 8:23 PM EDT 10 mg Given 10/16/2024 1:17 PM EDT 10 mg ondansetron (ZOFRAN) injection 4 mg 4 mg, Intravenous, Every 8 hours PRN, Nausea and/or Vomiting, Starting on 10/14/24 at 1947 Given 10/14/2024 8 :20 PM EDT 4 mg oxyCODONE (ROXICODONE) immediate release tablet 2.5 mg 2.5 mg, Oral, Every 6 hours PRN, moderate pain (NRS 4-6) or if patient is non-communicative (CPOT 3-5), Starting on [facility] 10/07/24 at 1205 oxyCODONE (ROXICODONE) immediate release tablet 5 mg 5 mg, Oral, Every 6 hours PRN, severe pain (NRS 7-10) or if patient is non-communicative (CPOT 6-8), Starting on [facility] 10/07/24 at 1205 Given 10/17/2024 8:48 AM [...] Anu Wolff RN)2104 (Given - Provider: Chelsy Bush, ЮЛИЯ) 0834 (Given - Provider: Anu Wolff RN)1316 [...] Provider: Anu Wolff RN)1317 (Given - Provider: Aun Wolff RN)2022 (Given - Provider: Soco Milton, [...] 0606 (Given - Provider: Soco Milton, ЮЛИЯ) potassium chloride (KLOR-CON M20) CR tablet 40 [...] Anu Wolff RN)2022 (Given - Provider: Soco Mitlon, ЮЛИЯ) 0850 (Given - Provider: Suzette Arciniega [...] Allergies, itching, Starting on Sun10/11/24 at 1030 metoprolol tartrate (LOPRESSOR) injection 2.5 [...] hours PRN, Nausea and/or Vomiting, Starting on 10/14/24 at 1947 oxyCODONE (ROXICODONE) immediate release tablet 2.5 mg(Linked Group 1) 2.5 mg, Oral, Every 6 hours PRN, moderate pain (NRS 4-6) or if patient is non-communicative (CPOT 3-5), Starting on 10/07/24 at 1205 2108 (See Alternative - Provider: Chelsy Bush RN) 0156 (See Alternative - Provider: Chelsy Bush RN)0635 (See Alternative - Provider: Chelsy Bush RN)1322 (See Alternative - Provider: Anu Wolff RN)2030 (See Alternative - Provider: Soco Milton RN) 0245 (See Alternative - Provider: Soco Milton, ЮЛИЯ)0848 (See Alternative - Provider: Suzette Arciniega, ЮЛИЯ) oxyCODONE (ROXICODONE) immediate release tablet 5 mg(Linked Group 1) 5 mg, Oral, Every 6 hours PRN, severe pain (NRS 7-10) or if patient is non-communicative (CPOT 6-8), Starting on [facility] 10/07/24 at 1205 2108 (Given - Provider: Chelsy [...] documented as of this encounter Care Teams Wedger Relationship Specialty Start Date End Date Enedina Mcguire NP [address] [place] [address] PCP - General Internal Medicine 10/05/24 documented as of this encounter
--- OUTSIDE RECORDS SUMMARY | 2024-10-10 12:01 | XMS_ITS | Encounter Summary ---
Author Organization [facility] Address [address] [place] [address] Care Team Providers Care Access Services Representative Name Role Phone Enedina Mcguire NP Primary Care Provider [phone] Source Comments This information has been disclosed [...] release of HIV test results or diagnoses. [id number] [facility] Reason for Visit * Auth/Cert (Routine) Specialty Diagnoses / Procedures Referred By Shane hernadez Referred To Contact General Internal Medicine Diagnoses [facility] [address] [place] [address] Phone: tel: Referral ID Status Reason Start Date Expiration Date Visits Re quested Visits Authorized [id number] 1 1 Encounter Details Date Type Department Care Team (Late st Contact Info) Description 10/10/2024 12:01 PM EDT Anesthesia Event [facility] ENDOSCOPY [address] [place] [address] Cady Bhat MD [address] [place] [address] Bob Leggett MD [address] [facility] [address] [place] [address] Anesthesia Record Procedure Summary Procedure [...] Recorded In the past 12 months has [employer], [employer], or [employer] threatened to shut off services in your [...] No 10/06/2024 Housing Stability Vital Sign Answer Obb e Recorded In the last 12 months, was t here a time when you were not able to pay the mortgage or rent on time? No 10/06/2024 In the past 12 months, how m any times have you moved where you were living? 0 10/06/2024 At any time in the past 12 m [facility], were you homeless or living in a skilled nursing (including now)? No 10/06/2024 Yearly Questionnaire Answer [...] Bhat MD - 10/10/2024 10:15 AM EDT [facility] DEPARTMENT OF ANESTHESIOLOGY PRE-PROCEDURAL EVALUATION Julien Anderson [...] Low Risk (07/09/2024) Received from [facility] Overall Financial Resource Strain (CARDIA) Difficulty [...] No Physical Activity: Unknown (07/14/2024) Received from [facility] Exercise Vital Sign Days of Exercise per Week: Patient unable to answer Minutes of Exercise per Session: Not on file Stress: Patient Unable To Answer (07/14/2024) Received from [facility] [place] of Occupational Health - Occupational Stress Questionnaire Feeling of Stress : Patient unable to answer Social Connections: Patient Unable To Answer (07/14/2024) Received from [facility] Social Connection and Isolation Panel [NHANES] Frequency of Communication with Friends and Family: Patient unable to answer Frequency of Social Gatherings with Friends and Family: Patient unable to answer Attends Congregation Services: Patient unable to answer Active Member [...] in detail. Questions answered. Plan discussed with RN CHILD. [1] Allergies Allergen Reactions Adhesive Itching and [...] 0659 10/10/24 07 - 10/11/24 0659 Shift 9681-1790 3539-0957 9049-4791 24 Hour Total 4857-3239 3061-2079 9402-5733 24 Hour Total INTAKE P.O. 210 210 [...] documented as of this encounter Care Teams Access Services Representative Relationship Specialty Start [place] [address] [place], [place] [id number] PCP - General Internal Medicine 10/05/24 documented as of this encounter
--- OUTSIDE RECORDS SUMMARY | 2024-10-14 08:42 | XMS_ITS | Encounter Summary ---
Author Organization [facility] Address [facility] [place] [address] Care Team Providers Care Rail Engineer Name Role Phone Enedina Mcguire NP Primary Care Provider [phone] Source Comments This information has been disclosed [...] release of HIV test results or diagnoses. [id number] Health Reason for Visit * Auth/Cert (Routine) Specialty Diagnoses / Procedures Referred By Shane hernadez Referred To Contact General Internal Medicine Diagnoses AMS [facility] [address] [place] [address] Phone: tel: Referral ID Status Reason Start Date Expiration Date Visits Re quested Visits Authorized [id number] 1 1 Encounter Details Date Type Department Care Team (Late st Contact Info) Description 10/14/2024 8:42 AM EDT - 10/14/2024 9:27 AM EDT Surgery [facility] Cardiac Real Estate Utilization Officer [address] [place] [address] Irving Matta MD [address] [facility] [place] [address] Left Heart Cath Surgery Details [...] the past 12 months has th e [employer], gas, oil, or water [employer] threatened to shut off services in your [...] any time in the past 12 m [facility], were you homeless or [...] Kandy Fuentes - 10/17/2024 10:29 AM EDT [facility] Care Management Discharge Summary Patient [...] Home post discharge: Not Applicable Kandy [facility] [phone] * William Blount MD - 10/17/2024 8:50 AM EDT [facility] Inpatient Discharge Summary Patient: Julien Gilbert Age: 39 y.o. CSN: [id number] Date of Admission: 10/05/2024 Date of Discharge: [...] Case IDs Date Procedure Surgeon Location Status [id number] 10/10/24 EGD Lino Soto MD ENDOSCOPY Comp [id number] 10/14/24 Left Heart Cath Irving Matta MD [...] at 10/08/2024 1:12 PM EDT US Duplex Dat-Enh-Oxbetvi Comp Final Result IMPRESSION: ABDOMEN 1. Cirrhotic [...] 90 tablet Refills: 0 naloxone 4 mg/actuation [place] Commonly known as: NARCAN Apply 1 spray [...] Medications These medications were sent to [facility] [address] Hours: Sunday - Sunday: 8:00AM - 6:00PM FLUoxetine 20 MG capsule lactulose 10 gram/15 mL solution loratadine 10 mg tablet methocarbamoL 500 MG tablet midodrine 10 MG tablet naloxone 4 mg/actuation [place] oxyCODONE 5 MG immediate release tablet Discharge [...] Order Questions: Select Supplement: Boost-1 kcal/ml supplement ([facility] only) As listed above, low [...] AM EDT 10/17/2024 naloxone (NARCAN) 4 mg/actuation [place] Apply 1 spray in one nostril if [...] [facility] PROGRESS NOTE Name: Julien Gilbert CSN: [id number] Consulted by: Chelsy Lerner MD Reason for [...] Yes Past Week naloxone (NARCAN) 4 mg/actuation [place] Apply 1 spray in one nostril if [...] nucleated cells, <2000 RBCs 10% Polynuclear, 90% Audrain nuc. There were initial reports of gram [...] of chemical dependency treatment as outpatient. - [facility] with no obstructive coronary disease - Psych eval for PTSD With recommendation of sertraline - Given his renal dysfunction, will plan to list for [facility] when he qualifies on 10/22/2024. Labs next week - Plan for d/c today Bobby Sidhu MD Transplant Customer Support Assistant Please see the body of the resident, [...] remains <30 until October 22. Waiting for [facility] today. ASSESSMENT NADIYA on CKD, last [...] Staff. Jeremiah Gamino PGY4 Nephrology. Pager no. [phone] Chief Complaint No chief complaint on file. [...] Hypertension, Other hyperlipidemia (07/26/2024), Renal cell carcinoma ([facility]), Thrombocytopenia ([facility]), and Thyroid disease. he has [...] at 10/08/2024 1:12 PM EDT US Duplex Zgj-Tir-Mesvjng Comp Final Result IMPRESSION: ABDOMEN 1. Cirrhotic [...] head imaging has been performed at [facility]. -CT Head w/o contrast -Imaging [...] Order Questions: Select Supplement: Boost-1 kcal/ml supplement ([facility] only) Code Status: Full Code [...] another specialty or practice, other licensed professional (PT/OT/AGRICULTURE DEPARTMENT CHAIR/RT), or a non-medical community professional: Hepatology, Interventional [...] due to positioning during LHC on 10/14. [place] the worst in CVR, but has improved [...] Kumar, DMITRY - 10/16/2024 1:08 PM EDT [facility] Medical Nutrition Therapy Follow-Up Diet Order/Nutrition Support: Regular diet, Boost TID - Vanilla preference Pertinent Information: This is a 39 year old male history of ETOH cirrhosis d/b HE, ascites with SBP who is admitted for AMS. Precipitant of his HE likely SBP. Diagnostic paracentesis at OSH reportedly showed 61 nucleated cells, <2000 RBCs 10% Polynuclear, 90% Audrain nuc. There were initial reports of gram [...] Based on CBW of 119.5 kg Kcals/day: 3431-6878 (18-21 kcals/kg) Protein g/day: 119-143 (1-1.2 g/kg) [...] Kumar RD, LD Clinical Dietitian Contact via ikeGPS * Jerad Hughes MD - 10/16/2024 11:03 AM EDT [facility] PROGRESS NOTE Name: Julien Gilbert CSN: [id number] Consulted by: Chelsy Lerner MD Reason for [...] nucleated cells, <2000 RBCs 10% Polynuclear, 90% Audrain nuc. There were initial reports of gram [...] of chemical dependency treatment as outpatient. - [facility] with no obstructive coronary disease - Psych eval for PTSD With recommendation of sertraline - Given his renal dysfunction, will plan to list for [facility] when he qualifies on 10/22/2024. - Will follow Bobby Sidhu MD Transplant Customer Support Assistant Please see the body of the resident, [...] remains <30 until October 22. Waiting for [facility] today. ASSESSMENT NADIYA on CKD, last [...] COMMENT on 10/08/2024 Iron%- Iron replete PLAN -[facility] yesterday- patient remains at risk of contrast related injury on top of exisiting NADIYA for 24-48 hrs after contrast load. -He is volume overloaded -patient needs to follow up closely with nephrology after discharge Thank you for allowing us to participate in this patient's care. Discussed with Consult Staff. Jeremiah Gamino PGY4 Nephrology. Pager no. [phone] Chief Complaint No chief complaint on file. [...] at 10/08/2024 1:12 PM EDT US Duplex Juq-Nur-Uzoyjvw Comp Final Result IMPRESSION: ABDOMEN 1. Cirrhotic [...] not tolerate Stress ECHO on 10/09 - [facility] today -Per GI recs, started on [...] head imaging has been performed at [facility]. -CT Head w/o contrast -Imaging [...] Order Questions: Select Supplement: Boost-1 kcal/ml supplement ([facility] only) Code Status: Full Code [...] another specialty or practice, other licensed professional (PT/OT/AGRICULTURE DEPARTMENT CHAIR/RT), or a non-medical community professional: Hepatology, Interventional [...] due to positioning during LHC on 10/14. [place] the worst in CVR, but has improved [...] [facility] PROGRESS NOTE Name: Julien Gilbert CSN: [id number] Consulted by: Chelsy Lerner MD Reason for [...] nucleated cells, <2000 RBCs 10% Polynuclear, 90% Audrain nuc. There were initial reports of gram [...] of chemical dependency treatment as outpatient. - [facility] yesterday with no obstructive coronary disease - Psych eval for PTSD and medical management - Given his renal dysfunction, will plan to list for [facility] when he qualifies on 10/22/2024. - Will follow Bobby Sidhu MD Transplant Customer Support Assistant Please see the body of the resident, [...] Quan MD - 10/14/2024 2:34 PM EDT [facility] Department of Cardiovascular Health and Diseases [...] remains <30 until October 22. Waiting for [facility] today. ASSESSMENT NADIYA on CKD, last discharge creatinine 2.4 Baseline Creatinine 1.2-1.3, HRS- NADIYA as no response to holding lasix and albumin UA bland Urine lytes <10/< 15/ 50 Holding lasix give [facility] today Renal Function: Recent Labs 10/14/24 [...] Staff. Jeremiah Gamino PGY4 Nephrology. Pager no. [phone] Chief Complaint No chief complaint on file. [...] is Acute kidney injury superimposed on CKD ([facility]). No acute events overnight. Pt with [...] at 10/08/2024 1:12 PM EDT US Duplex Orq-Ixf-Tutkxuy Comp Final Result IMPRESSION: ABDOMEN 1. Cirrhotic [...] not tolerate Stress ECHO on 10/09 - [facility] today -Per GI recs, started on [...] head imaging has been performed at [facility]. -CT Head w/o contrast -Imaging [...] never required dialysis. Patient is going for [facility] today and will receive contrast, okay [...] Order Questions: Select Supplement: Boost-1 kcal/ml supplement ([facility] only) Code Status: Full Code [...] another specialty or practice, other licensed professional (PT/OT/AGRICULTURE DEPARTMENT CHAIR/RT), or a non-medical community professional: Hepatology, Interventional [...] [facility] PROGRESS NOTE Name: Julien Gilbert CSN: [id number] Consulted by: Chelsy Lerner MD Reason for [...] nucleated cells, <2000 RBCs 10% Polynuclear, 90% Audrain nuc. There were initial reports of gram [...] eval ongoing. Transplant work up ongoing - [facility] today - Transplant nephrology following for [...] - Will follow Bobby Sidhu MD Transplant Customer Support Assistant Please see the body of the resident, [...] Staff. Jeremiah Gamino PGY4 Nephrology. Pager no. [phone] Chief Complaint No chief complaint on file. [...] [facility] PROGRESS NOTE Name: Julien Gilbert CSN: [id number] Consulted by: Fouzia Rene MD Reason for [...] nucleated cells, <2000 RBCs 10% Polynuclear, 90% Audrain nuc. There were initial reports of gram [...] eval ongoing. Transplant work up ongoing - [facility] today - Transplant nephrology following for [...] - Will follow Bobby Sidhu MD Transplant Customer Support Assistant Please see the body of the resident, [...] no psychomotor abnormalities Cognition: short term and chcf memory intact Attitude: cooperative Affect: full range [...] Fabian, RD - 10/13/2024 10:49 AM EDT [facility] Medical Nutrition Therapy Reason(s) for Completion: [...] Order Questions: Select Supplement: Boost-1 kcal/ml supplement ([facility] only) Pertinent Information: Julien Gilbert is a 39 y.o. Male admitted for Acute kidney injury superimposedon CKD ([facility]) Pt noted to have waxing [...] kg) Body mass index is 32.07 kg/m??. [place] Body Weight: 202 lbs (91.8 kg) +/- 10% Weight History: Wt Readings from Last 10 Encounters: 10/10/24 (!) 263 lb 8 oz (119.5 kg) 09/05/24 (!) 262 lb 9.6 oz (119.1 kg) 09/02/24 (!) 258 lb (117 kg) 08/17/24 (!) 242 lb 11.2 oz (110.1 kg) 07/28/24 (!) 245 lb (111.1 kg) Estimated Nutrition Needs: Based on CBW of 119.5 kg Kcals/day: 0710-4690 (18-21 kcals/kg) Protein g/day: 119-143 (1-1-2 g/kg) [...] Dietitian - Solid Organ Transplant Contact via Lecere Chat * Eileen Schroeder MD, PhD - 10/13/2024 8:19 AM EDT Department of Internal Medicine Daily Progress Note Chief Complaint / Reason for Follow-Up Julien Gilbert is a 39 y.o. male on hospital day 8. The principal reason for today's follow up visit is Acute kidney injury superimposed on CKD ([facility]). NAEON Pt felt well this [...] at 10/08/2024 1:12 PM EDT US Duplex Bfg-Hll-Fkfaosy Comp Final Result IMPRESSION: ABDOMEN 1. Cirrhotic [...] head imaging has been performed at [facility]. -CT Head w/o contrast -Imaging [...] Order Questions: Select Supplement: Boost-1 kcal/ml supplement ([facility] only) Code Status: Full Code [...] reviewed the documentation by the medical steam press tender and agree as documented. Any additions [...] was non-diagnostic due to hypotension. Plan for [facility] today, but now moved to tomorrow. [...] another specialty or practice, other licensed professional (PT/OT/AGRICULTURE DEPARTMENT CHAIR/RT), or a non-medical community professional: Nephrology, Hepatology [...] at 10/08/2024 1:12 PM EDT US Duplex Imz-Jpg-Syrhjgc Comp Final Result IMPRESSION: ABDOMEN 1. Cirrhotic [...] head imaging has been performed at [facility]. -CT Head w/o contrast -Imaging [...] Order Questions: Select Supplement: Boost-1 kcal/ml supplement ([facility] only) Code Status: Full Code [...] reviewed the documentation by the medical steam press tender and agree as documented. Any additions or clarifications are listed below. Daily plan was discussed with patient at bedside and questions addressed. Patient ID: Julien Gilbert is a 39 y.o. male currently admitted for Acute kidney injury superimposed on CKD ([facility]) Supplemental History/ ROS: No acute [...] AM Medical Decision Making/ Assessment & Plan: Julein Gilbert is a 39 y.o. male with admitted for Acute kidney injury superimposed on CKD ([facility]) Active Problems: NADIYA (acute kidney injury) on CKD ([facility]): Hepatorenal syndrome. Appreciate nephrology consult. S/p albumin X3. baseline creatinine presumed to be around 2.5. Creatinine improved from its peak and may be now fluctuating around a new baseline. We will continue to monitor. Spontaneous Bacterial Peritonitis ([facility]): He remains afebrile and vital signs have been stable. Received 4 days of vancomycin, Ceftriaxone x 5d. - Restart Cipro prophylaxis Anemia: Multiple contributors. S/p 1 unit PRBC. Hemoglobin responded appropriately and remained stable. Will continue to monitor. Metabolic encephalopathy: Resolved. Likely related to combination of hepatic, metabolic, and possibly infectious insults. - Continue home lactulose and rifaximin Decompensated cirrhosis ([facility]): Appreciate hepatology consult. He has [...] another specialty or practice, other licensed professional (PT/OT/AGRICULTURE DEPARTMENT CHAIR/RT), or a non-medical community professional: Nephrology, Hepatology [...] tid. cardiac workup pre txp. pLan for [facility] Sunday Liver transplant workup per GI/ [...] 706.9 (H) 10/08/2024 No results found for: [id number] , FOLATE Lab Results Component Value Date [...] CRUR No results found for: MICROALBUR , [id number] In addition to the above an extensive [...] 4.6 10/12/2024 Lab Results Component Value Date OYHS24R 7.1 (L) 10/08/2024 PLAN Monitor renal panel [...] AM Colten Huertas MD, KISHOR LIN, CATHYF foundry tender Div. of Nephrology [facility] E-mail: [email or web address] This note was completely [...] Rene MD Interval hx No issues. Pending [facility]. Assessment: Renal Function: Cr: 2.77 Bun: [...] 706.9 (H) 10/08/2024 No results found for: [id number] , FOLATE Lab Results Component Value Date [...] CRUR No results found for: MICROALBUR , [id number] In addition to the above an extensive [...] 3.5 10/11/2024 Lab Results Component Value Date ILSP46U 7.1 (L) 10/08/2024 PLAN Monitor renal panel [...] AM Colten Huertas MD, KISHOR LIN FNKF foundry tender Div. of Nephrology [facility] E-mail: [email or web address] This note was completely [...] is Acute kidney injury superimposed on CKD ([facility]). NAEON Pt felt much better today. [...] at 10/08/2024 1:12 PM EDT US Duplex Uqt-Wzd-Awekfao Comp Final Result IMPRESSION: ABDOMEN 1. Cirrhotic [...] from outside facility. Will engage with them daily([phone]. Ask to speak to a tech) about [...] head imaging has been performed at [facility]. -CT Head w/o contrast -Imaging [...] Order Questions: Select Supplement: Boost-1 kcal/ml supplement ([facility] only) Code Status: Full Code [...] reviewed the documentation by the medical steam press tender and agree as documented. Any additions or clarifications are listed below. Daily plan was discussed with patient at bedside and questions addressed. Patient ID: Julien iGlbert is a 39 y.o. male currently admitted [...] another specialty or practice, other licensed professional (PT/OT/AGRICULTURE DEPARTMENT CHAIR/RT), or a non-medical community professional: Nephrology, Hepatology, [...] Strictly monitor urine output No Indication for PACKING CHECKER 3. Not a candidate for terlipressin per [...] Ignacio Queen MD Renal Fellow Pager # [phone] Chief Complaint No chief complaint on file. [...] PHOS -- < > 3.5 3.4 3.3 VNEA13N 7.1* -- -- -- -- < > = values in this interval not displayed. Lab Results Component Value Date IRON 81 10/08/2024 TIBC SEE COMMENT 10/08/2024 FERRITIN 706.9 (H) 10/08/2024 No results found for: [id number] , FOLATE Lab Results Component Value Date [...] CRUR No results found for: MICROALBUR , [id number] In addition to the above an extensive [...] 3.3 10/10/2024 Lab Results Component Value Date RLHT42C 7.1 (L) 10/08/2024 PLAN Continue IV albumin [...] AM Colten Huertas MD, DELIA, KISHOR, FNKF foundry tender Div. of Nephrology [facility] E-mail: [email or web address] This note was completely [...] to follow pt while pt is at [facility]. * Jodi Ortiz PharmD - 10/10/2024 10:27 AM EDT Clinical Pharmacy Service: Vancomycin Consult Progress Note Patient has been transitioned off of vancomycin therapy per team notes and orders. Pharmacy will sign-off at this time, please do not hesitate to consult again as needs arise. Thank you for involving pharmacy in the care of this patient. Jodi Ortiz PharmD Clinical Ship Joiner, Internal Medicine Preferred contact: Lecere Secure Chat Clinical Tggaqdw-Nv-Jdmb Pager: [phone] October 10, 2024 10:27 AM Laboratory Data [...] 10/07/2024 10:50 PM Giardia Cryptosporidium Antigens Final [id number] 10/07/2024 10:50 PM Ova and Parasite Comprehensive w/ Giardia/Crypto Final [id number] Feces 10/06/2024 1:04 AM #2 Blood culture-Peripheral site 2 Preliminary [id number] Peripheral 10/06/2024 1:04 AM #1 Blood culture-Peripheral site 1 Preliminary [id number] Peripheral Pharmacokinetics Lab Results (Last 7 days) Today 0523 Yesterday 10/08 0536 Vanc Rdm 16.4 11.0 16.0 * Gerri Peterson MD - 10/10/2024 10:09 AM EDT [facility] PROGRESS NOTE Name: Julien Gilbert CSN: [id number] Consulted by: Fouzia Rene MD Reason for [...] nucleated cells, <2000 RBCs 10% Polynuclear, 90% Audrain nuc. Per OSH reports, ascitic fluid cultures [...] to achieving target HR. -cardiology consult for [facility] on Sunday - Transplant nephrology following [...] from the original note were not included. [facility] Clinical Pharmacy Service: Vancomycin Monitoring [...] in sodium chloride 0.9 % 250 mL Wmdy4Dqu (Completed) 1,500 mg Once 10/09/2024 10/09/2024 Admin Instructions: Contact pharmacy if there is a question/concern of whether vancomycin should begiven based on serum drug levels. Use Voup7Bce Adapter - Mix Thoroughly Before Administration Route: Intravenous vancomycin (VANCOCIN) 1,500 mg in sodium chloride 0.9 % 250 mL Emeo9Yfc 1,500 mg Once 10/10/2024 10/11/2024 Admin Instructions: Contact pharmacy if there is a question/concern of whether vancomycin should begiven based on serum drug levels. Use Ojwr8Irr Adapter - Mix Thoroughly Before Administration Route: [...] in sodium chloride 0.9 % 250 mL Jlxi2Rkw 1,500 mg 166.7 mL/hr 10/08/24 1259 New Bag vancomycin (VANCOCIN) 1,000 mg in sodium chloride 0.9 % 250 mL Fiyg3Pcc 1,000 mg 250 mL/hr --Objective Data-- Vitals: [...] 53 53 54 Creatinine 2.85 2.89 3.04 [place] body weight: 86.8 kg (191 lb 5.7 oz) Adjusted ideal body weight: 99.9 kg (220 lb 3.5 oz) Estimated CrCl: ~35-45 mL/min --Cultures-- Microbiology Results Date and Time Order Name Sensitivity Status Organisms Specimen ID Source 10/07/2024 10:50 PM Giardia Cryptosporidium Antigens Final [id number] 10/07/2024 10:50 PM Ova and Parasite Comprehensive w/ Giardia/Crypto Final [id number] Feces 10/06/2024 1:04 AM #2 Blood culture-Peripheral site 2 Preliminary [id number] Peripheral 10/06/2024 1:04 AM #1 Blood culture-Peripheral site 1 Preliminary [id number] Peripheral --Vancomycin Concentrations-- Lab Results (Last 7 [...] for the consult. Jodi Ortiz PharmD Clinical Ship Joiner, Internal Medicine Preferred contact: [email or web address] Clinical Xsoaoet-Jj-Qxxa Pager: [phone] October 10, 2024 9:13 AM * Eileen Schroeder MD, PhD - 10/10/2024 8:17 AM EDT Department of Internal Medicine Daily Progress Note Chief Complaint / Reason for Follow-Up Julien Gilbert is a 39 y.o. male on hospital day 5. The principal reason for today's follow up visit is Acute kidney injury superimposed on CKD ([facility]). CORTNEYON Pt was very conversational today. [...] at 10/08/2024 1:12 PM EDT US Duplex Smd-Neu-Xbtrggl Comp Final Result IMPRESSION: ABDOMEN 1. Cirrhotic [...] from outside facility. Will engage with them daily([phone]. Ask to speak to a tech) about [...] head imaging has been performed at [facility]. -CT Head w/o contrast -Imaging [...] Order Questions: Select Supplement: Boost-1 kcal/ml supplement ([facility] only) Code Status: Full Code [...] reviewed the documentation by the medical steam press tender and agree as documented. Any additions or clarifications are listed below. Daily plan was discussed with patient at bedside and questions addressed. Patient ID: Julien Gilbert is a 39 y.o. male currently admitted for Acute kidney injury superimposed on CKD ([facility]) Supplemental History/ ROS: No acute [...] for Acute kidney injury superimposed on CKD ([facility]) Active Problems: Spontaneous Bacterial Peritonitis ([facility]): Cultures from OSH were reported [...] Continue home lactulose and rifaximin Decompensated cirrhosis ([facility]): Appreciate hepatology consult. He has [...] IR. NADIYA (acute kidney injury) on CKD ([facility]): Appreciate nephrology consult. Likely due [...] another specialty or practice, other licensed professional (PT/OT/AGRICULTURE DEPARTMENT CHAIR/RT), or a non-medical community professional: Nephrology, Hepatology, [...] Strictly monitor urine output No Indication for PACKING CHECKER Not a candidate for terlipressin per liver due to HE, liver and kidney failure, on midodrine tid. Considering para today, cardiac workup pre txp Liver transplant workup per GI/ Primary team, considering for [facility], seen by renal transplant team Thank you for allowing us to participate in this patient's care. Discussed with Consult Staff. Ignacio Queen MD Renal Fellow Pager # [phone] Chief Complaint No chief complaint on file. [...] 9.0 9.3 PHOS -- 3.5 3.5 3.4 XTWY32H 7.1* -- -- -- Lab Results Component Value Date IRON 81 10/08/2024 TIBC SEE COMMENT 10/08/2024 FERRITIN 706.9 (H) 10/08/2024 No results found for: [id number] , FOLATE Lab Results Component Value Date [...] CRUR No results found for: MICROALBUR , [id number] In addition to the above an extensive [...] 3.4 10/09/2024 Lab Results Component Value Date LVOK87D 7.1 (L) 10/08/2024 PLAN Continue IV albumin [...] PM Colten Huertas MD, KISHOR LIN, CATHYF foundry tender Div. of Nephrology [facility] E-mail: [email or web address] This note was completely [...] [facility] [facility] HEPATOLOGY PROGRESS NOTE Name: Julien Gilbert CSN: [id number] Consulted by: Fouzia Rene MD Reason for [...] nucleated cells, <2000 RBCs 10% Polynuclear, 90% Audrain nuc. Fluid cultures reportedly grew gram + [...] from the original note were not included. [facility] Clinical Pharmacy Service: Vancomycin Monitoring [...] in sodium chloride 0.9 % 250 mL Ooxq2Imm (Completed) 1,000 mg Once 10/08/2024 10/08/2024 Admin Instructions: Contact pharmacy if there is a question/concern of whether vancomycin should begiven based on serum drug levels. Use Yxqw0Udr Adapter - Mix Thoroughly Before Administration Route: Intravenous vancomycin (VANCOCIN) 1,500 mg in sodium chloride 0.9 % 250 mL Psvq1Vrd 1,500 mg Once 10/09/2024 10/10/2024 Admin Instructions: Contact pharmacy if there is a question/concern of whether vancomycin should begiven based on serum drug levels. Use Cehf2Atf Adapter - Mix Thoroughly Before Administration Route: [...] in sodium chloride 0.9 % 250 mL Ztdr0Vax 1,000 mg 250 mL/hr 10/06/24 1413 New [...] 10/07/2024 10:50 PM Giardia Cryptosporidium Antigens Final [id number] 10/07/2024 10:50 PM Ova and Parasite Comprehensive w/ Giardia/Crypto Final [id number] Feces 10/06/2024 1:04 AM #2 Blood culture-Peripheral site 2 Preliminary [id number] Peripheral 10/06/2024 1:04 AM #1 Blood culture-Peripheral site 1 Preliminary [id number] Peripheral --Vancomycin Concentrations-- Lab Results (Last 7 [...] for the consult. Jodi Ortiz PharmD Clinical Ship Joiner, Internal Medicine Preferred contact: adflyer Clinical Mthyawl-Ur-Dipm Pager: [phone] October 09, 2024 8:29 AM * Eileen Schroeder MD, PhD - 10/09/2024 8:00 AM EDT Department of Internal Medicine Daily Progress Note Chief Complaint / Reason for Follow-Up Julien Gilbert is a 39 y.o. male on hospital day 4. The principal reason for today's follow up visit is Acute kidney injury superimposed on CKD ([facility]). DREW and father at bedside [...] at 10/08/2024 1:12 PM EDT US Duplex Jyo-Hck-Qwnmpbd Comp Final Result IMPRESSION: ABDOMEN 1. Cirrhotic [...] from outside facility. Will engage with them daily([phone]. Ask to speak to a tech) about [...] head imaging has been performed at [facility]. -CT Head w/o contrast -Imaging [...] Order Questions: Select Supplement: Boost-1 kcal/ml supplement ([facility] only) Code Status: Full Code [...] reviewed the documentation by the medical steam press tender and agree as documented. Any additions or clarifications are listed below. Daily plan was discussed with patient at bedside and questions addressed. Patient ID: Julien Gilbert is a 39 y.o. male currently admitted for Acute kidney injury superimposed on CKD ([facility]) Supplemental History/ ROS: No acute [...] for Acute kidney injury superimposed on CKD ([facility]) Active Problems: Anemia: S/p 1 unit PRBC from yesterday. Hemoglobin responded appropriately and remained stable. Will continue to monitor. Metabolic encephalopathy: Mostly resolved. Likely related to combination of hepatic, metabolic, andpossibly infectious insults. - Continue home lactulose and rifaximin Spontaneous Bacterial Peritonitis ([facility]): Cultures from OSH are growing gram- positive organisms.We continue to await speciation. He remains afebrile and vital signs have been stable. - Continue vancomycin and ceftriaxone for now. - Will follow-up on speciation and sensitivities. Decompensated cirrhosis ([facility]): Appreciate hepatology consult. He has started his transplant evaluation and will continue while inpatient. - MELD labs daily - Continue home regimen with ursodiol, rifaximin and lactulose - Start midodrine 3 times daily - EGD postponed until tomorrow -Planning for stress test today - Due for therapeutic paracentesis in the next day or so. NADIYA (acute kidney injury) on CKD ([facility]): Appreciate nephrology consult. Likely due to hepatorenal syndrome. Now s/p albumin X3. baseline creatinine presumed to be around 2.5. Creatinine slightly lower today. We will continue to monitor. Electrolyte derangements: Replete as needed Neck Pain: He has a history of cervical surgery. Continue oxycodone as needed for pain. Continue tomonitor. Principal Problem: Acute kidney injury superimposed on CKD ([facility]) Active Problems: Decompensated cirrhosis ([facility]) Metabolic encephalopathy Thrombocytopenia ([facility]) Renal mass, left Metabolic acidosis with normal anion gap and bicarbonate losses GERD (gastroesophageal reflux disease) Anemia SBP (spontaneous bacterial peritonitis) ([facility]) Neck pain with history of [...] another specialty or practice, other licensed professional (PT/OT/AGRICULTURE DEPARTMENT CHAIR/RT), or a non-medical community professional: Nephrology, Hepatology Labs reviewed (1 pt each): CBC, CMP, INR & other daily labs Review of notes from a different specialty or different practice: Nephrology, Anesthesiology hepatology, * Gerri Peterson MD - 10/08/2024 1:40 PM EDT [facility] HEPATOLOGY PROGRESS NOTE Name: Julien Gilbert CSN: [id number] Consulted by: Fouzia Rene MD Reason for [...] nucleated cells, <2000 RBCs 10% Polynuclear, 90% Audrain nuc. Fluid cultures reportedly grew gram + [...] disease (ESRD) patient in a hospital based, [facility] based, or home setting. -At the time [...] I have discussed this plan with the regulatory affairs coordinator and the liver transplant team. Cosigned [...] from the original note were not included. [facility] Clinical Pharmacy Service: Vancomycin Monitoring [...] in sodium chloride 0.9 % 250 mL Rsgc2Jvh 1,000 mg Once 10/08/2024 10/09/2024 Admin Instructions: Contact pharmacy if there is a question/concern of whether vancomycin should begiven based on serum drug levels. Use Jrkm3Pie Adapter - Mix Thoroughly Before Administration Route: [...] 10/07/2024 10:50 PM Giardia Cryptosporidium Antigens Final [id number] 10/07/2024 10:50 PM Ova and Parasite Comprehensive w/ Giardia/Crypto In process [id number] Feces 10/06/2024 1:04 AM #2 Blood culture-Peripheral site 2 Preliminary [id number] Peripheral 10/06/2024 1:04 AM #1 Blood culture-Peripheral site 1 Preliminary [id number] Peripheral --Vancomycin Concentrations-- Lab Results (Last 7 [...] for the consult. Jodi Ortiz, PharmD Clinical Ship Joiner, Internal Medicine Preferred contact: adflyer Clinical Wxkqmqi-Ya-Xacp Pager: [phone] October 08, 2024 9:13 AM * Eileen [...] FREET4 0.74 09/03/2024 Diagnostic Studies US Duplex Cbr-Uew-Tvuysar Comp Final Result IMPRESSION: ABDOMEN 1. Cirrhotic [...] head imaging has been performed at [facility]. -CT Head w/o contrast -Imaging [...] Order Questions: Select Supplement: Boost-1 kcal/ml supplement ([facility] only) Code Status: Full Code [...] reviewed the documentation by the medical steam press tender and agree as documented. Any additions [...] tomorrow NADIYA (acute kidney injury) on CKD ([facility]): Appreciate nephrology consult. Likely has [...] Problem: Metabolic encephalopathy Active Problems: Decompensated cirrhosis ([facility]) Acute kidney injury superimposed on CKD ([facility]) Thrombocytopenia ([facility]) Renal mass, left Metabolic acidosis with normal anion gap and bicarbonate losses GERD (gastroesophageal reflux disease) Anemia SBP (spontaneous bacterial peritonitis) ([facility]) Neck pain with history of [...] another specialty or practice, other licensed professional (PT/OT/AGRICULTURE DEPARTMENT CHAIR/RT), or a non-medical community professional: Nephrology, Hepatology [...] Strictly monitor urine output No Indication for PACKING CHECKER Not a candidate for terlipressin per liver due to HE, liver ans kidney failure, on midodrine tid Liver transplant workup per GI/ Primary team, considering for SLK Thank you for allowing us to participate in this patient's care. Discussed with Consult Staff. Ignacio Queen MD Renal Fellow Pager # [phone] Chief Complaint No chief complaint on file. [...] TIBC , FERRITIN No results found for: [id number] , FOLATE Lab Results Component Value Date [...] <15 No results found for: MICROALBUR , [id number] In addition to the above an extensive [...] 4.0 10/08/2024 Lab Results Component Value Date XJDI01R 7.1 (L) 10/08/2024 PLAN Continue IV albumin [...] AM Colten Huertas MD, DELIA, KISHOR, FNKF foundry tender Div. of Nephrology [facility] E-mail: [email or web address] This note was completely [...] from the original note were not included. [facility] Clinical Pharmacy Service: Vancomycin Monitoring [...] AM #2 Blood culture-Peripheral site 2 Preliminary [id number] Peripheral 10/06/2024 1:04 AM #1 Blood culture-Peripheral site 1 Preliminary [id number] Peripheral --Vancomycin Concentrations-- Lab Results (Last 7 [...] for the consult. Jodi Ortiz PharmD Clinical Ship Joiner, Internal Medicine Preferred contact: adflyer Clinical Zzowfdy-Ud-Bqye Pager: [phone] October 07, 2024 5:01 PM * Yamile [...] [facility] HE[facility]Y PROGRESS NOTE Name: Julien Gilbert CSN: [id number] Consulted by: Fouzia Rene MD Reason for [...] nucleated cells, <2000 RBCs 10% Polynuclear, 90% Audrain nuc. Fluid cultures reportedly grewgram + rods. [...] in liver selection meeting and clearance by child protective services social worker. Please order CT cardiac coronary [...] Strictly monitor urine output No Indication for PACKING CHECKER Liver transplant workup per GI/ Primary team Thank you for allowing us to participate in this patient's care. Discussed with Consult Staff. Ignacio Queen MD Renal Fellow Pager # [phone] Chief Complaint No chief complaint on file. [...] TIBC , FERRITIN No results found for: [id number] , FOLATE Lab Results Component Value Date [...] <15 No results found for: MICROALBUR , [id number] In addition to the above an extensive [...] PHOS 4.2 10/07/2024 No results found for: [id number] PLAN Continue IV albumin Monitor renal panel [...] AM Colten Huertas MD, KISHOR LIN FNKF foundry tender Div. of Nephrology [facility] E-mail: [email or web address] * Carmen Bernal, OT - 10/07/2024 11:09 AM EDT Occupational Therapy Initial Assessment and Discharge Name: Julien Gilbert : 1985 Attending Physician: Fouzia Rene MD Admission Diagnosis: AMS Date: 10/07/2024 Room: [email or web address] Reviewed Pertinent hospital course: Yes Hospital Course [...] at 10/06/2024 2:33 AM EDT US Duplex Pqw-Kht-Ucunakr Comp (Results Pending) US Abdomen Complete (Results [...] head imaging has been performed at [facility]. -CT Head w/o contrast -Imaging [...] Order Questions: Select Supplement: Boost-1 kcal/ml supplement ([facility] only) Code Status: Full Code [...] reviewed the documentation by the medical steam press tender and agree as documented. Any additions [...] home lactulose and rifaximin Spontaneous Bacterial Peritonitis ([facility]): Cultures from OSH are growing [...] kidney disease) stage 4, GFR 15-29 ml/min ([facility]) Metabolic acidosis with normal anion [...] another specialty or practice, other licensed professional (PT/OT/AGRICULTURE DEPARTMENT CHAIR/RT), or a non-medical community professional: Nephrology, Hepatology Labs reviewed (1 pt each): CMP, CBC Test results reviewed (1 pt each): CXR, Head CT Review of notes from a different specialty or different practice: Nephrology, hepatology Use of parenteral controlled substances * Kiet Gardiner, PharmD - 10/06/2024 1:07 PM EDT Images from the original note were not included. [facility] Clinical Pharmacy Service: Vancomycin Monitoring [...] AM #2 Blood culture-Peripheral site 2 Preliminary [id number] Peripheral 10/06/2024 1:04 AM #1 Blood culture-Peripheral site 1 Preliminary [id number] Peripheral --Vancomycin Concentrations-- Lab Results (Last 7 [...] US Retroperitoneal complete (Results Pending) US Duplex Xsd-Czz-Dpzymcq Comp (Results Pending) CT Head WO contrast [...] PM EDT Hospital Medicine Attending Supervision Note [facility] // [facility] Julien Gilbert was seen 10/06/24 [...] MD - 10/05/2024 2:42 PM EDT [facility] Department of Medicine TRANSFER [...] nearest ED, with plan to transfer to [facility] if needing admission. In the [...] Studies: Na 129 K 4.2 Cl 101 Huvzvo65 BUN 62 (up from baseline) Cr 3.6 [...] Quan MD - 10/14/2024 1:10 PM EDT [facility] PRE-SEDATION ASSESSMENT, HISTORY & PHYSICAL Date: [...] Neuro: AOx3 AUC For Cath Indication(s) for Real Estate Utilization Officer Visit: Visit Indicators: Suspected CAD 2. Chest Pain Symptom Assessment: Asymptomatic 3. Heart Failure: Yes Class II 4. CHSA Clinical Frailty Scale: Mildly Frail Sedation Plan: Moderate Sedation with Local Anesthesia Antibiotic prophylaxis is not indicated. Mani Quan Interventional Pot Feeder Pager: [phone] [1] Patient Active Problem List Diagnosis Decompensated cirrhosis ([facility]) Acute kidney injury superimposed on CKD ([facility]) Alcohol use disorder Metabolic encephalopathy Hypertension Other hyperlipidemia Thrombocytopenia ([facility]) Renal mass, left Abdominal pain Hypokalemia CKD (chronic kidney disease) stage 4, GFR 15-29 ml/min ([facility]) Metabolic acidosis with normal anion gap and bicarbonate losses GERD (gastroesophageal reflux disease) Hypothyroidism Itching Anemia BRBPR (bright red blood per rectum) SBP (spontaneous bacterial peritonitis) ([facility]) C Diff Diarrhea C. difficile diarrhea Neck pain with history of cervical spinal surgery Cosigned by Irving Matta MD at 10/16/2024 10:54 AM EDT Associated attestation - Irving Matta MD - 10/16/2024 10:54 AM EDT Agree * Gerri Peterson MD - 10/10/2024 10:05 AM EDT [facility] PRE-SEDATION ASSESSMENT, HISTORY & PHYSICAL Date: [...] Patient Active Problem List Diagnosis Decompensated cirrhosis ([facility]) Acute kidney injury superimposed on CKD ([facility]) Alcohol use disorder Metabolic encephalopathy Hypertension Other hyperlipidemia Thrombocytopenia ([facility]) Renal mass, left Abdominal pain Hypokalemia CKD (chronic kidney disease) stage 4, GFR 15-29 ml/min ([facility]) Metabolic acidosis with normal anion gap and bicarbonate losses GERD (gastroesophageal reflux disease) Hypothyroidism Itching Anemia BRBPR (bright red blood per rectum) SBP (spontaneous bacterial peritonitis) ([facility]) C Diff Diarrhea C. difficile [...] Low Risk (07/09/2024) Received from [facility] Overall Financial Resource Strain (CARDIA) Difficulty [...] Activity: Unknown (07/14/2024) Received from [facility] Exercise Vital Sign Days of Exercise per Week: Patient unable to answer Minutes of Exercise per Session: Not on file Stress: Patient Unable To Answer (07/14/2024) Received from [facility] [place] of Occupational Health - Occupational Stress Questionnaire Feeling of Stress : Patient unable to answer Social Connections: Patient Unable To Answer (07/14/2024) Received from [facility] Social Connection and Isolation Panel [NHANES] Frequency of Communication with Friends and Family: Patient unable to answer Frequency of Social Gatherings with Friends and Family: Patient unable to answer Attends Islam Services: Patient unable to answer Active Member [...] Henriquez MD midodrine 10 mg TID Chari Vaneags MD 10 mg at 10/09/24 1308 oxyCODONE [...] values in this interval not displayed. Imaging: @[id number]@ I have personally reviewed the imaging and have noted the following: Large recanalized umbilical vein Perihilar varices Replaced right hepatic artery Splenomegaly Spontaneous splenorenal shunt Large volume ascites, No portal vein thrombosis Assessment/Plan: A 39 y.o. male with ETOH decompensated by ascites, hepatic encephalopathy,bleeding esophageal Varices. Use and allocation of SCD, GAS PUMPER, DCD and LDLT allografts discussed in detail. [...] from surgery (5%). I also explained the longwall machine operator helper risks of transplantation and immunosuppression including viral infection and cancer both solid organand lymphoma. Kemar Sahni MD, Fellow, Multiorgan Abdominal Transplant Surgery. [facility]. 10/09/2024 3:16 PM [1] Allergies Allergen Reactions Adhesive Itching and Rash Tegaderm adhesive on Ivs, pt states its tolerable Duloxetine Other (See Comments) Became Manic Cosigned by Harvey Domínguez III, MD at 10/20/2024 9:55 AM EDT Associated attestation - aHrvey Domínguez III, MD - 10/20/2024 9:55 AM [...] Ortiz MD - 10/06/2024 12:00 AM EDT [facility] Internal Medicine - History and Physical [...] taken to Radiology overnight for imaging upload. [facility] performed a bedside paracentesis and sent studies for SBP analysis. Willcontact [facility] to see if labs have resulted. Review of Systems 14 pt ROS conducted and negative aside from that mentioned in above HPI Past Medical and Social History Lives in [place], [place] at bedside Notes that the patient [...] OSH Repeat labs pending on admission to [facility] Assessment & Plan Julien Gilbert [...] AM EDT Hospital Medicine Attending Supervision Note [facility] // [facility] Julien Gilbert was seen 10/06/24 [...] at OSH for K 4.2 Cl 101 Kfqfln86 BUN 62 (up from baseline) Cr 3.6 [...] another specialty or practice, other licensed professional (PT/OT/AGRICULTURE DEPARTMENT CHAIR/RT), or a non-medical community professional: ed team [...] Medicine Department of Internal Medicine Pager ID: [phone] 6:04 AM, 10/06/2024 documented in this encounter [...] CNP Vascular & Interventional Radiology 10/10/2024,1:55 PM [facility]: [phone]) * Lino Soto MD - 10/10/2024 12:06 PM EDT EGD Brief Op Note Julien Gilbert 10/05/2024 - 10/10/2024 Pre-op Diagnosis: Alcoholic cirrhosis of liver with ascites (CMS-HCC) [K70.31] Post-op Diagnosis: Portal gastropathy, Medium size, non-bleeding esophageal varices Procedure(s): EGD Surgeon(s): Lino Soto MD Anesthesia: MAC (Monitor Anesthesia Care) Staff: Fellow: Gerri Peterson MD Endoscopy Nurse: Kandice Castaneda RN Wildfire Prevention Specialist: Diana Kemp Estimated Blood Loss: Minimal Specimens: Drains: There were no complications unless listed below. LINO SOTO MD Date: 10/10/2024 Time: 12:18 PM * Lino Soto MD - 10/10/2024 11:48 AM EDT [id number] Procedure Date: 10/10/2024 11:48 AM Patient Name: Julien Gilbert Date of : 1985 Admit Type: Inpatient Age: 39 Gender: Male Note Status: Finalized Attending MD: Lino Soto MD, [id number] Procedure: Upper GI endoscopy Indications: Gastroesopahgeal variceal [...] verified by the physician, the nurse, the technical support internship and the oil and gas exploration technician in the pre-procedure area in the [...] to hypotension Procedure Code(s): --- Professional --- 47526, GC, Esophagogastroduodenoscopy, flexible, transoral; diagnostic, including collection of specimen(s) by brushing or washing, when performed (separate procedure) Diagnosis Code(s): --- Professional --- I85.00, Esophageal varices without bleeding K76.6, Portal hypertension K31.89, Other diseases of stomach and duodenum CPT copyright 2022 [employer]. All rights reserved. The codes documented in this report are preliminary and upon ornamental metal fabricator apprentice review may be revised to meet current [...] In: 12:10:16 PM Scope Out: 12:17:[address] [place] [address], [facility] * Gill Le RN - 10/09/2024 4:00 [...] due to request for PTSD medication recommendations. Juline reported along history of anxiety, flashbacks, hypervigilance [...] time. 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 Describes significant anxiety [...] mother is and his father resides in [facility]. Patient earned a graduate degree and never [...] or other abnormalities Cognition/Memory: short term and longwall machine operator helper memory intact. Attention and concentration: is not [...] patient on 10/15/24. I have participated in albardao portions of decision-making. Initially discussed sertraline, but [...] from the original note were not included. [facility] General Cardiology Consult Note Referring Physician: [...] at baseline or with provocation, shows no fjuli-uw-yifz atrial level shunt. - Pulmonary arteries: Systolic [...] with Cardiology can be scheduled by calling [phone]. Thank you for the opportunity to participate in this patient's care. Please call orpage with any questions. Leonor Garcia MD Pot Feeder I have personally seen, examined, reviewed all [...] 0659 10/11/24 0700 - 10/12/24 0659 Shift [id number] 2949-3476 24 Hour Total 9191-5478 4474-1685 1730-1250 24 Hour Total INTAKE P.O. 8332 497 3767 P.O. 6778 799 5041 Boost (mL) - [facility] only 240 240 I.V.(mL/kg) 450(3.8) [...] (See Comments) Became Manic * Bakari Wahl, BOOKMAKER'S CLERK - 10/10/2024 10:07 AM EDT Interventional Radiology [...] Please call with any questions. BAKARI WAHL, BOOKMAKER'S CLERK Vascular & Interventional Radiology 10/10/2024,1:54 PM [facility]: [phone]) [1] Social History Tobacco Use Smoking Status [...] EDTAssociated Order(s): IP CONSULT TO INFECTIOUS DISEASES [facility] DEPARTMENT OF INFECTIOUS DISEASE INITIAL NOTE Referring Physician: Fouzia Rene MD Consult Attending: Daria Garcia Patient: Julien Gilbert CSN: [id number] Reason for Consult: CC: Abx management History [...] He was born and raised in [place] [facility] . No travel to the mission [...] Low Risk (07/09/2024) Received from [facility] Overall Financial Resource Strain (CARDIA) Difficulty [...] Activity: Unknown (07/14/2024) Received from [facility] Exercise Vital Sign Days of Exercise per Week: Patient unable to answer Minutes of Exercise per Session: Not on file Stress: Patient Unable To Answer (07/14/2024) Received from [facility] [place] of Occupational Health - Occupational Stress Questionnaire Feeling of Stress : Patient unable to answer Social Connections: Patient Unable To Answer (07/14/2024) Received from [facility] Social Connection and Isolation Panel [NHANES] Frequency of Communication with Friends and Family: Patient unable to answer Frequency of Social Gatherings with Friends and Family: Patient unable to answer Attends Islam Services: Patient unable to answer Active Member [...] day. Qty: 60 tablet, Refills: 0 Comments: [facility] [place] [address] sodium bicarbonate 650 MG tablet Take 2 [...] Aphasia [R47.01] 10/06/2024 SBP (spontaneous bacterial peritonitis) ([facility]) [K65.2] 09/08/2024 Metabolic acidosis with normal anion gap and bicarbonate losses [E87.20] 09/03/2024 CKD (chronic kidney disease) stage 4, GFR 15-29 ml/min ([facility]) [N18.4] 09/03/2024 GERD (gastroesophageal reflux disease) [K21.9] 09/03/2024 Renal mass, left [N28.89] 08/18/2024 Thrombocytopenia ([facility]) [D69.6] Decompensated cirrhosis ([facility]) [K72.90, K74.60] 07/25/2024 NADIYA (acute kidney injury) ([facility]) [N17.9] 07/25/2024 Resolved Hospital Problems No resolved [...] Signed: Daria Garcia MD 10/08/2024, 9:46 AM [phone] [1] Allergies Allergen Reactions Adhesive Itching and [...] Low Risk (07/09/2024) Received from [facility] Overall Financial Resource Strain (CARDIA) Difficulty [...] Activity: Unknown (07/14/2024) Received from [facility] Exercise Vital Sign Days of Exercise per Week: Patient unable to answer Minutes of Exercise per Session: Not on file Stress: Patient Unable To Answer (07/14/2024) Received from [facility] [place] of Occupational Health - Occupational Stress Questionnaire Feeling of Stress : Patient unable to answer Social Connections: Patient Unable To Answer (07/14/2024) Received from [facility] Social Connection and Isolation Panel [NHANES] Frequency of Communication with Friends and Family: Patient unable to answer Frequency of Social Gatherings with Friends and Family: Patient unable to answer Attends Islam Services: Patient unable to answer Active Member [...] is no recent study available for direct aeyf-ia-xife comparison. Left Ventricle The left ventricle is [...] pressures < 35 mmHgon resting echo from [facility] 07/15/24. No ischemic workup noted. [...] surgery with risk (OLT/OKT) Los Broussard MD, [facility] Department of Anesthesiology [1] Allergies Allergen Reactions Adhesive Itching and Rash Tegaderm adhesive on Ivs, pt states its tolerable Duloxetine Other (See Comments) Became Manic [2] Patient Active Problem List Diagnosis Decompensated cirrhosis ([facility]) NADIYA (acute kidney injury) ([facility]) Alcohol use disorder Metabolic encephalopathy Hypertension Other hyperlipidemia Thrombocytopenia ([facility]) Renal mass, left Abdominal pain Hypokalemia CKD (chronic kidney disease) stage 4, GFR 15-29 ml/min ([facility]) Metabolic acidosis with normal anion gap and bicarbonate losses GERD (gastroesophageal reflux disease) Hypothyroidism Itching Anemia BRBPR (bright red blood per rectum) SBP (spontaneous bacterial peritonitis) ([facility]) C Diff Diarrhea C. difficile [...] MD PCP: Enedina Mcguire NP Home Pharmacy: [facility] [address] [place], [place] [address] [address] [address] [facility] [address] [facility] [address] Issues related to obtaining medications: Payor Information Medical Insurance Coverage: Payor: [employer] / Plan: [facility] / Product Type: *No Producttype* / Secondary Payor: Functional Assessment Functional Assessment Assessment Information Obtained From:: Patient Current Mental Status: Awake, Oriented to Person, Oriented to Place, Oriented to Time, Oriented to Situation Mental Health History: Yes Behavioral Health Agency Involvement: Yes Behavioral Health Agency Name: Other (Comment) (states he used [facility] for mental health help) Do you need [...] Was any abuse reported by patient?: No [place] Status & Connection to [facility] Status [...] and started on empiric CTX. BSN RN Home Administrator Neisha Fuentes met with patient at [...] years ago where he did rehab through [facility]. No history of home health care service. [...] are disclosed as appropriate. Kandy Fuentes [facility] * Gladys Banda, AGRICULTURE DEPARTMENT CHAIR - 10/07/2024 11:15 AM EDT Speech Language Pathology Speech, Language and Cognitive Initial Assessment Name: Julien Gilbert : 1985 Attending Physician: Fouzia Rene MD Admission Diagnosis: AMS Date: 10/07/2024 Reviewed Pertinent hospital course: Yes Hospital Course AGRICULTURE DEPARTMENT CHAIR: 39 y/o male with a past medical [...] 2. No intracranial mass effect or hemorrhage. AGRICULTURE DEPARTMENT CHAIR Hx: 08/15/24: BSE with recs for regular [...] if new needs arise. No further acute AGRICULTURE DEPARTMENT CHAIR services are warranted for speech, language, or cognition at this time. Plan/Recommendation: - Discharge from AGRICULTURE DEPARTMENT CHAIR - no acute needs at this time - AGRICULTURE DEPARTMENT CHAIR at discharge is not recommended Problem List Problem List[1] Past Medical History Past Medical History: Diagnosis Date Alcoholic cirrhosis of liver (CMS-HCC) Alcoholic hepatitis Esophageal varices (CMS-HCC) Hepatorenal syndrome (CMS-HCC) Hypertension Other hyperlipidemia 07/26/2024 Renal cell carcinoma (CMS-HCC) Thrombocytopenia ([facility]) Thyroid disease Past Surgical History No [...] Patient educated on: Family educated on;role of AGRICULTURE DEPARTMENT CHAIR, current POC, and discharge recommendations forSLP therapy Patient response: Patient verbalized understanding;Family demonstrated understanding End of Session: Patient was left in bed with call light within reach and all needs met. Gladys Banda M.A, CCC-AGRICULTURE DEPARTMENT CHAIR Speech Language Pathologist--Rehab Services [facility] MBSImP Certified Clinician Time Start Time: 1055 Stop Time: 1109 Time Calculation (min): 14 min Charges $Eval Speech Sound Prd w/Lng Comp & Expr: 1 Procedure Patient Class Inpatient [1] Patient Active Problem List Diagnosis Decompensated cirrhosis ([facility]) NADIYA (acute kidney injury) ([facility]) Alcohol use disorder Metabolic encephalopathy Hypertension Other hyperlipidemia Thrombocytopenia ([facility]) Renal mass, left Abdominal pain Hypokalemia CKD (chronic kidney disease) stage 4, GFR 15-29 ml/min ([facility]) Metabolic acidosis with normal anion [...] NAGMA related to diarrhea No Indication for PACKING CHECKER Liver transplant workup per GI/ Primary team Thank you for allowing us to participate in this patient's care. Discussed with Consult Staff. Ignacio Queen MD Renal Fellow Pager # [phone] Chief Complaint No chief complaint on file. [...] TIBC , FERRITIN No results found for: [id number] , FOLATE Lab Results Component Value Date [...] CRUR No results found for: MICROALBUR , [id number] In addition to the above an extensive [...] 5.3 (H) 10/06/2024 No results found for: [id number] PLAN Patient seen labs reviewed Unclear baseline serum creat Recent episode of acute kidney injury requiring hospitalization Now has [id number]-[id number] episode of NADIYA Underwent paracentesis 3 days [...] team Colten Huertas MD, KISHOR LIN FNKF foundry tender Div. of Nephrology [facility] E-mail: [email or web address] * Jerad Hughes MD - 10/06/2024 9:28 AM EDTAssociated Order(s): IP CONSULT TO [facility] HE[facility]OLOGY CONSULT NOTE Name: Julien Gilbert CSN: [id number] Consulted by: Angie Blanchard MD Reason for [...] to diarrhea. Patient was recently referred to [facility] for liver transplant evaluation. Patient was evaluated by transplant child protective services social worker on 09/25/2024 and it was [...] verbalize understanding. Transported via wheelchair to the [facility] to bepicked up for a lyft. 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 Bedside report received from fence laborer, RN. Pt placed on telemetry, serial vital signs set up. Access site: RRA. Site is soft, no bleeding/hematoma, [address] Sheath removed in fence laborer at 1402, TR band placed to [...] EDT Pt arrived with and admitted into [facility] from [facility] with AMS. Hosiptalist [...] Patient will remain free of falls Goal: Calvin Fall Precautions Outcome: Progressing Problem: Daily Care Goal: Daily care needs are met Description: Assess and monitor ability to perform self care and identify potential discharge needs. Outcome: Progressing * Care Coordination - Kandy Fuentes - 10/16/2024 11:33 AM EDT [facility] Case Management/Social Work Department Progress Note Patient Information Patient Name: Julien Gilbert Hospital day: 11 Inpatient/Observation: Inpatient Level of Care: kinsey Admit date: 10/05/2024 Admission diagnosis: AMS PMH: has a past medical history of Alcoholic cirrhosis of liver (CMS-HCC), Esophageal varices (CMS-HCC), Hepatorenal syndrome ([facility]), Hypertension, Other hyperlipidemia (07/26/2024), Renal cell carcinoma (CMS-HCC), Thrombocytopenia ([facility]), and Thyroid disease. PCP: Enedina Mcguire NP Home Pharmacy: [facility] [address] [place] [address] [address] [facility] [address] [facility] [id number] Medical Insurance Coverage: Payor: [employer] Agent Partner / Plan: [facility] / Product Type: *No Producttype* / Other Pertinent Information RN/CM received update from team and completed chart review. Pt is not medically ready for discharge. Nephrology to see today. Here for pre-transplant work up. Discharge Plan Anticipated discharge plan: home Anticipated discharge date: 10/17/24 CM/SW will continue to follow and remain available for discharge planning needs. Kandy BAE [facility] * Plan of Care - [...] Patient will remain free of falls Goal: Calvin Fall Precautions Outcome: Progressing Problem: Daily Care [...] Patient will remain free of falls Goal: Calvin Fall Precautions Outcome: Progressing Problem: Daily Care [...] Kandy Fuentes - 10/15/2024 2:26 PM EDT [facility] Case Management/Social Work Department Progress Note Patient Information Patient Name: Julien Gilbert Hospital day: 10 Inpatient/Observation: Inpatient Level of Care: blue Admit date: 10/05/2024 Admission diagnosis: AMS PMH: has a past medical history of Alcoholic cirrhosis of liver (CMS-HCC), Esophageal varices ([facility]), Hepatorenal syndrome ([facility]), Hypertension, Other hyperlipidemia (07/26/2024), Renal cell carcinoma (CMS-HCC), Thrombocytopenia ([facility]), and Thyroid disease. PCP: Enedina Mcguire NP Home Pharmacy: [facility] [address] [place] [facility] [address] [place] [address] [facility] [address] [facility] [id number] Medical Insurance Coverage: Payor: [facility] / Plan: [facility] / Product Type: *No Producttype* [...] Patient will remain free of falls Goal: Calvin Fall Precautions Outcome: Progressing Problem: Daily Care [...] Kandy Fuentes - 10/14/2024 11:10 AM EDT [facility] Case Management/Social Work Department Progress Note Patient Information Patient Name: Julien Gilbert Hospital day: 9 Inpatient/Observation: Inpatient Level of Care: blue Admit date: 10/05/2024 Admission diagnosis: AMS PMH: has a past medical history of Alcoholic cirrhosis of liver (CMS-HCC), Esophageal varices ([facility]), Hepatorenal syndrome ([facility]), Hypertension, Other hyperlipidemia (07/26/2024), Renal cell carcinoma ([facility]), Thrombocytopenia ([facility]), and Thyroid disease. PCP: Enedina Mcguire NP Home Pharmacy: [facility] [address] [place] [id number] [facility] [address] [facility] [id number] Medical Insurance Coverage: Payor: [employer] / Plan: [facility] / Product Type: *No Producttype* [...] Kandy Fuentes - 10/13/2024 11:53 AM EDT [facility] Case Management/Social Work Department Progress Note Patient Information Patient Name: Julien Gilbert Hospital day: 8 Inpatient/Observation: Inpatient Level of Care: blue Admit date: 10/05/2024 Admission diagnosis: AMS PMH: has a past medical history of Alcoholic cirrhosis of liver (CMS-HCC), Alcoholic hepatitis, Esophageal varices (CMS-HCC), Hepatorenal syndrome ([facility]), Hypertension, Other hyperlipidemia (07/26/2024), Renal cell carcinoma ([facility]), Thrombocytopenia ([facility]), and Thyroid disease. PCP: Enedina Mcguire NP Home Pharmacy: [facility] [address] [place] [address] [place] [address] [facility] [address] [facility] [id number] Medical Insurance Coverage: Payor: [facility] / Plan: [facility] / Product Type: *No Producttype* / Other Pertinent Information RN/CM received update from team and completed chart review. Pt is not medically ready for discharge. Patient is going to have left heart cath today. Discharge Plan Anticipated discharge plan: home Anticipated discharge date: 10/14/24 CM/SW will continue to follow and remain available for discharge planning needs. Kandy [facility]AE [facility] * Plan of Care - [...] Kandy Fuentes - 10/10/2024 12:00 PM EDT [facility] Case Management/Social Work Department Progress [...] disease. PCP: Enedina Mcguire NP Home Pharmacy: [facility] [address] [address] [facility] [address] [facility] [address] Medical Insurance Coverage: Payor: [facility] / Plan: [facility] / Product Type: *No Producttype* [...] available for discharge planning needs. Kandy [facility]AE [facility] * Plan of Care - [...] Patient will remain free of falls Goal: Calvin Fall Precautions Outcome: Progressing Problem: Daily Care [...] Patient will remain free of falls Goal: Calvin Fall Precautions Outcome: Progressing Problem: Daily Care [...] Kandy Fuentes - 10/09/2024 12:05 PM EDT [facility] Case Management/Social Work Department Progress [...] disease. PCP: Enedina Mcguire NP Home Pharmacy: [facility] [address] - [place], [place] - [address] [address] [facility] [address] [facility] [id number] Medical Insurance Coverage: Payor: [facility] / Plan: [facility] / Product Type: *No Producttype* [...] Kandy Fuentes - 10/08/2024 3:41 PM EDT [facility] Case Management/Social Work Department Progress Note Patient Information Patient Name: Julien Gilbert Hospital day: 3 Inpatient/Observation: Inpatient Level of Care: blue Admit date: 10/05/2024 Admission diagnosis: AMS PMH: has a past medical history of Alcoholic cirrhosis of liver (CMS-HCC), Alcoholic hepatitis, Esophageal varices ([facility]), Hepatorenal syndrome ([facility]), Hypertension, Other hyperlipidemia (07/26/2024), Renal cell carcinoma ([facility]), Thrombocytopenia ([facility]), and Thyroid disease. PCP: Eneidna Mcguire NP Home Pharmacy: [facility] [address] [place] [id number] [facility] [address] [facility] [address] Medical Insurance Coverage: Payor: [facility] / Plan: [facility] / Product Type: *No Producttype* [...] Kandy Fuentes - 10/07/2024 3:22 PM EDT [facility] Case Management/Social Work Department Progress Note Patient Information Patient Name: Julien Gilbert Hospital day: 2 Inpatient/Observation: Inpatient Level of Care: blue Admit date: 10/05/2024 Admission diagnosis: AMS PMH: has a past medical history of Alcoholic cirrhosis of liver ([facility]), Alcoholic hepatitis, Esophageal varices ([facility]), Hepatorenal syndrome ([facility]), Hypertension, Other hyperlipidemia (07/26/2024), Renal cell carcinoma ([facility]), Thrombocytopenia ([facility]), and Thyroid disease. PCP: Enedina Mcguire NP Home Pharmacy: [address] [address] [facility] [address] [facility] [id number] Medical Insurance Coverage: Payor: [facility] / Plan: [facility] / Product Type: *No Producttype* [...] Patient will remain free of falls Goal: Calvin Fall Precautions Outcome: Progressing Problem: Daily Care [...] IGG ANTIBODY Routine 10/07/2024 6:37 PM EDT [id number] (AAT) QUANTITATION & MUTATION Routine 10/07/2024 6:37 [...] Routine 10/07/2024 6:19 PM EDT US DUPLEX [id number] COMPLETE Routine 10/07/2024 3:48 PM EDT US [...] 10/06/2024 4:01 AM EDT UPPER RESPIRATORY VIRAL/BACTERIAL PANEL-FUNERAL SERVICE APPRENTICE ONLY Routine 10/06/2024 3:12 AM EDT XR [...] - 146 mmol/L 10/17/2024 7:02 AM EDT [facility] Potassium 3.4(L) 3.5 - 5.3 mmol/L 10/17/2024 7:02 AM EDT [facility] Chloride 104 98 - 110 mmol/L 10/17/2024 7:02 AM EDT [facility] CO2 18(L) 21 - 33 mmol/L 10/17/2024 7:02 AM EDT [facility] Anion Gap 11 3 - 16 mmol/L 10/17/2024 7:02 AM EDT [facility] BUN 54(H) 7 - 25 mg/dL 10/17/2024 7:02 AM EDT [facility] Creatinine 2.88(H) 0.60 - 1.30 mg/dL 10/17/2024 7:02 AM EDT [facility] Glucose 127(H) 70 - 100 mg/dL 10/17/2024 7:02 AM EDT [facility] Calcium 8.2(L) 8.6 - 10.3 mg/dL 10/17/2024 7:02 AM EDT [facility] Phosphorus 4.5 2.1 - 4.7 mg/dL 10/17/2024 7:02 AM EDT [facility] Albumin 3.1(L) 3.5 - 5.7 g/dL 10/17/2024 7:02 AM EDT [facility] Osmolality, Calculated 292 278 - 305 mOsm/kg 10/17/2024 7:02 AM EDT [facility] EGFR 27 10/17/2024 7:02 AM EDT [facility] Comment:As of 2021, the estimated [...] BLOOD ORDERABLES Final Result [facility] [address] [place] [address] * (ABNORMAL) Protime-INR (10/16/2024 6:31 AM EDT) Protime 22.5(H) 12.1 - 15.1 seconds 10/16/2024 8:04 AM EDT [facility] INR 1.9(H) 0.9 - 1.1 10/16/2024 8:04 AM EDT [facility] Comment: RECOMMENDED THERAPEUTIC RANGES USING INR : Stable oral anticoagulant therapy: 2.0 - 3.0 Mechanical prosthetic heart valve: 2.5 - 3.5 Recurrent acute myocardial infarction: 2.5 - 3.5 Plasma 10/16/2024 6:31 AM EDT 10/16/2024 6:56 AM EDT Eileen Schroeder MD, PhD LAB BLOOD ORDERABLES Final Result Performing Organization Address City/[facility]/ZIP Co de Phone Number [facility] [address] * (ABNORMAL) Hepatic Function Panel (10/16/2024 6:31 AM EDT) Total Bilirubin 7.6(H) 0.0 - 1.5 mg/dL 10/16/2024 7:24 AM EDT [facility] Bilirubin, Direct 3.97(H) 0.00 - 0.40 mg/dL 10/16/2024 7:24 AM EDT [facility] AST 45(H) 13 - 39 U/L 10/16/2024 7:24 AM EDT [facility] ALT 23 7 - 52 U/L 10/16/2024 7:24 AM EDT [facility] Alkaline Phosphatase 137(H) 36 - 125 U/L 10/16/2024 7:24 AM EDT [facility] Total Protein 5.1(L) 6.4 - 8.9 g/dL 10/16/2024 7:24 AM EDT [facility] Albumin 3.4(L) 3.5 - 5.7 g/dL 10/16/2024 7:24 AM EDT [facility] Bilirubin, Indirect 3.63(H) 0.00 - 1.10 mg/dL 10/16/2024 7:24 AM EDT [facility] Plasma 10/16/2024 6:31 AM EDT 10/16/2024 6:56 AM EDT us Eileen Schroeder MD, PhD LAB BLOOD ORDERABLES Final Result Performing Organization Address City/[facility]/ZIP Co de Phone Number [facility] [address] [facility], [place]. [address] * Magnesium (10/16/2024 6:31 AM EDT) Magnesium 2.1 1.5 - 2.5 mg/dL 10/16/2024 7:24 AM EDT [facility] Plasma 10/16/2024 6:31 AM EDT 10/16/2024 6:56 AM EDT us Eileen Schroeder MD, PhD LAB BLOOD ORDERABLES Final Result [facility] [address] * (ABNORMAL) Renal Function Panel w/EGFR (10/16/2024 6:31 AM EDT) Sodium 135 133 - 146 mmol/L 10/16/2024 7:24 AM EDT [facility] Potassium 3.7 3.5 - 5.3 mmol/L 10/16/2024 7:24 AM EDT [facility] Chloride 106 98 - 110 mmol/L 10/16/2024 7:24 AM EDT [facility] CO2 16(L) 21 - 33 mmol/L 10/16/2024 7:24 AM EDT [facility] Anion Gap 13 3 - 16 mmol/L 10/16/2024 7:24 AM EDT [facility] BUN 55(H) 7 - 25 mg/dL 10/16/2024 7:24 AM EDT [facility] Creatinine 3.20(H) 0.60 - 1.30 mg/dL 10/16/2024 7:24 AM EDT [facility] Glucose 121(H) 70 - 100 mg/dL 10/16/2024 7:24 AM EDT [facility] Calcium 8.5(L) 8.6 - 10.3 mg/dL 10/16/2024 7:24 AM EDT [facility] Phosphorus 4.2 2.1 - 4.7 mg/dL 10/16/2024 7:24 AM EDT [facility] Albumin 3.4(L) 3.5 - 5.7 g/dL 10/16/2024 7:24 AM EDT [facility] Osmolality, Calculated 296 278 - 305 mOsm/kg 10/16/2024 7:24 AM EDT [facility] EGFR 24 10/16/2024 7:24 AM EDT [facility] Comment:As of 2021, the estimated [...] BLOOD ORDERABLES Final Result [facility] [address] [id number], [facility] * (ABNORMAL) CBC (10/16/2024 6:31 AM EDT) WBC 5.8 3.8 - 10.8 10E3/uL 10/16/2024 8:00 AM EDT [facility] RBC 2.16(L) 4.20 - 5.80 10E6/uL 10/16/2024 8:00 AM EDT [facility] Hemoglobin 7.7(L) 13.2 - 17.1 g/dL 10/16/2024 8:00 AM EDT [facility] Hematocrit 22.1(L) 38.5 - 50.0 % 10/16/2024 8:00 AM EDT [facility] MCV 102.3(H) 80.0 - 100.0 fL 10/16/2024 8:00 AM EDT [facility] MCH 35.7(H) 27.0 - 33.0 pg 10/16/2024 8:00 AM EDT [facility] MCHC 34.9 32.0 - 36.0 g/dL 10/16/2024 8:00 AM EDT [facility] RDW 17.7(H) 11.0 - 15.0 % 10/16/2024 8:00 AM EDT [facility] Platelets 43(L) 140 - 400 10E3/uL 10/16/2024 8:00 AM EDT [facility] Comment: Specimen checked for clots. None detected. Slide Reviewed for PLT Clumps. None Seen. Platelet Estimate Decreased 10/16/2024 8:00 AM EDT [facility] [facility] MPV 8.6 7.5 - 11.5 fL 10/16/2024 8:00 AM EDT [facility] Whole Blood 10/16/2024 6:31 AM EDT 10/16/2024 6:57 AM EDT Narrative [facility] - 10/16/2024 8:00 AM EDT Peripheral blood smear was scanned per review criteria approved by the laboratory medical record technician. us Eileen Schroeder MD, PhD LAB BLOOD ORDERABLES Final Result [facility] [address] * CARISA Rhythm Strip - Scan (10/15/2024 8:02 PM EDT) us Scanning [facility] SCAN DOCS - NO RESULTS Final Res ult * CARISA Rhythm Strip - Scan (10/15/2024 8:02 PM EDT) us Scanning [employer] SCAN DOCS - NO RESULTS Final Res ult * Prepare Platelets, leukoreduced, 1 Units (10/15/2024 6:16 AM EDT) [facility] Signature Product Code [id number] HCLL Unit Number [id number] HCLL Dispense Status Presumed Transfused_PT HCLL Blood Expiration Date HCLL Coding System [id number] HCLL Blood Bank Product us Eleazar Nguyễn MD BLOOD BANK PRODUCT ORDE LILIA Final Result Performing Organization Address [facility] Co de Phone Number HCLL * Prepare Fresh Frozen Plasma, 1 Units (10/15/2024 6:15 AM EDT) Product Code [id number] HCLL Unit Number [id number] HCLL Dispense Status Presumed Transfused_PT HCLL Blood Expiration Date [id number] HCLL Coding System [id number] HCLL Blood Bank Product us Eleazar Nguyễn MD BLOOD BANK PRODUCT ORDE LILIA Final Result Performing Organization Address [facility] Co de Phone Number HCLL * (ABNORMAL) Protime-INR (10/15/2024 6:08 AM EDT) Protime 21.6(H) 12.1 - 15.1 seconds 10/15/2024 6:36 AM EDT [facility] INR 1.8(H) 0.9 - 1.1 10/15/2024 6:36 AM EDT [facility] Comment: RECOMMENDED THERAPEUTIC RANGES USING INR : Stable oral anticoagulant therapy: 2.0 - 3.0 Mechanical prosthetic heart valve: 2.5 - 3.5 Recurrent acute myocardial infarction: 2.5 - 3.5 Plasma 10/15/2024 6:08 AM EDT 10/15/2024 6:17 AM EDT us Eileen Schroeder MD, PhD LAB BLOOD ORDERABLES Final Result Performing Organization Address City/[facility]/ZIP Co de Phone Number [facility] [address] * (ABNORMAL) Hepatic Function Panel (10/15/2024 6:08 AM EDT) Total Bilirubin 7.1(H) 0.0 - 1.5 mg/dL 10/15/2024 6:45 AM EDT [facility] Bilirubin, Direct 3.77(H) 0.00 - 0.40 mg/dL 10/15/2024 6:45 AM EDT [facility] AST 39 13 - 39 U/L 10/15/2024 6:45 AM EDT [facility] ALT 22 7 - 52 U/L 10/15/2024 6:45 AM EDT [facility] Alkaline Phosphatase 115 36 - 125 U/L 10/15/2024 6:45 AM EDT [facility] Total Protein 4.8(L) 6.4 - 8.9 g/dL 10/15/2024 6:45 AM EDT [facility] Albumin 3.2(L) 3.5 - 5.7 g/dL 10/15/2024 6:45 AM EDT [facility] Bilirubin, Indirect 3.33(H) 0.00 - 1.10 mg/dL 10/15/2024 6:45 AM EDT [facility] Plasma 10/15/2024 6:08 AM EDT 10/15/2024 6:17 AM EDT us Eileen Schroeder MD, PhD LAB BLOOD ORDERABLES Final Result Performing Organization Address [facility]/ZIP Co de Phone Number [facility] [address] [place] [address] * Magnesium (10/15/2024 6:08 AM EDT) Magnesium 1.8 1.5 - 2.5 mg/dL 10/15/2024 6:45 AM EDT [facility] Plasma 10/15/2024 6:08 AM EDT 10/15/2024 6:17 AM EDT Eileen Schroeder MD, PhD LAB BLOOD ORDERABLES Final Result Performing Organization Address [facility]/ZIP Co de Phone Number [facility] [address] * (ABNORMAL) Renal Function Panel w/EGFR (10/15/2024 6:08 AM EDT) Sodium 135 133 - 146 mmol/L 10/15/2024 6:45 AM EDT [facility] Potassium 3.4(L) 3.5 - 5.3 mmol/L 10/15/2024 6:45 AM EDT [facility] Chloride 107 98 - 110 mmol/L 10/15/2024 6:45 AM EDT [facility] CO2 17(L) 21 - 33 mmol/L 10/15/2024 6:45 AM EDT [facility] Anion Gap 11 3 - 16 mmol/L 10/15/2024 6:45 AM EDT [facility] BUN 55(H) 7 - 25 mg/dL 10/15/2024 6:45 AM T [facility] Creatinine 2.88(H) 0.60 - 1.30 mg/dL 10/15/2024 6:45 AM T [facility] Glucose 125(H) 70 - 100 mg/dL 10/15/2024 6:45 AM EDT [facility] Calcium 8.4(L) 8.6 - 10.3 mg/dL 10/15/2024 6:45 AM EDT [facility] Phosphorus 3.9 2.1 - 4.7 mg/dL 10/15/2024 6:45 AM EDT [facility] Albumin 3.2(L) 3.5 - 5.7 g/dL 10/15/2024 6:45 AM [facility] Osmolality, Calculated 297 278 - 305 mOsm/kg 10/15/2024 6:45 AM EDT [facility] EGFR 27 10/15/2024 6:45 AM [facility] Comment:As of 2021, the [...] BLOOD ORDERABLES Final Result [facility] [address] [place], [place] [address] * (ABNORMAL) CBC (10/15/2024 6:08 AM EDT) WBC 4.6 3.8 - 10.8 10E3/uL 10/15/2024 6:51 AM EDT [facility] RBC 1.94(L) 4.20 - 5.80 10E6/uL 10/15/2024 6:51 AM EDT [facility] Hemoglobin 7.1(L) 13.2 - 17.1 g/dL 10/15/2024 6:51 AM EDT [facility] Hematocrit 19.6(L) 38.5 - 50.0 % 10/15/2024 6:51 AM EDT [facility] MCV 100.8(H) 80.0 - 100.0 fL 10/15/2024 6:51 AM EDT [facility] MCH 36.7(H) 27.0 - 33.0 pg 10/15/2024 6:51 AM EDT [facility] MCHC 36.4(H) 32.0 - 36.0 g/dL 10/15/2024 6:51 AM EDT [facility] RDW 17.3(H) 11.0 - 15.0 % 10/15/2024 6:51 AM EDT [facility] Platelets 34(L) 140 - 400 10E3/uL 10/15/2024 6:51 AM EDT [facility] Comment:Specimen checked for clots. None detected. MPV 8.7 7.5 - 11.5 fL 10/15/2024 6:51 AM EDT [facility] Whole Blood 10/15/2024 6:08 AM EDT 10/15/2024 6:17 AM EDT us Eileen Schroeder MD, PhD LAB BLOOD ORDERABLES Final Result Performing Organization Address [facility] Co de Phone Number [address] * PRA-HLA Ab Screen (Cytotoxic) (10/15/2024 6:08 AM EDT) Pathologist [facility] The request and specimen(s) for this test have been received and transported to the [facility] at [address] [place] [address]. The [facility] will report results directly to the client. 10/15/2024 6:42 AM EDT [facility] Comment:The request and spec imen(s) for this test have been received and transported to the [facility] at [address] [place] [address]. The [facility] will report results directly to the client. Serum 10/15/2024 6:08 AM EDT 10/15/2024 6:42 AM EDT us Cosmo Pacheco MD LAB BLOOD ORDERABLES Final Resul t Performing Organization Address [facility] Co de Phone Number [facility] [address] [place] [address] * LEFT HEART CATH (10/14/2024 2:09 PM EDT) 10/14/2024 11:4 7 AM EDT Narrative [facility] - 10/14/2024 9:27 PM EDT *[facility]* Cardiac Real Estate Utilization Officer [address] [place] [address] CATHETERIZATION LAB STUDY Patient: Julien Gilbert Age: [...] manner. 3. Right radial artery access. A [id number] Glidesheath - Slender - .021 sheath was [...] + !LV pressure s/d, ed !, 22, dP/lz=8350eo Hg/s! + + + !Aortic pressure s/d (m)!106/58 (75) ! + + + ATTESTATION: Dr. Matta was present for the entire procedure. Dr. Jay Quan was the initial author of this report. Prepared and electronically signed by Irving Matta MD [id number] Procedure Note Irving Matta MD - 10/14/2024 *[facility]* Cardiac Real Estate Utilization Officer [address] [place] [address] CATHETERIZATION LAB STUDY Patient: Julien Gilbert Age: [...] manner. 3. Right radial artery access. A [id number] Glidesheath - Slender - .021sheath was advanced [...] complications. Contrast: Omnipaque 350 25ml (total dose). Kgyddlznk172 125ml (wasted). Radiation: Fluoroscopy time: 15min. Total [...] + + !LV pressure s/d, ed !, dP/vt=1136dl Hg/s! + + + !Aortic pressure s/d (m)!106/58 (75) ! + + + ATTESTATION: Dr. Matta was present for the entire procedure. Dr. Jay Quan wasthe initial author of this report. Prepared and electronically signed by Irving Matta MD [id number] [place] [id number] Final Result [facility] * Transfuse Fresh Frozen [...] Final Result Performing Organization Address [facility]/ZIP Co de Phone Number EXTERNAL * Transfuse Platelets Transfusion Rate: Per dept routine, 1 Units (10/14/2024 12:43 PM EDT) us Eleazar Nguyễn MD NURSING TREATMENT ORDER PAL - BLOOD ADMIN Final Result EXTERNAL * Antibody Screen (10/14/2024 8:21 AM EDT) Pathologist [facility] Antibody Screen Negative 10/14/2024 9:11 AM EDT [facility] Blood 10/14/2024 8:21 AM EDT 10/14/2024 8:33 AM EDT Narrative [facility]ALTH [facility] - 10/14/2024 9:26 AM EDT Testing performed by [facility] Transfusion Service us Eleazar Nguyễn MD BLOOD BANK TEST ORDERAB LES Final Result Performing Organization Address City/[facility]/ZIP Co de Phone Number [facility] [address] [place] [address], [facility] * ABO/Rh (10/14/2024 8:21 AM EDT) ABO Grouping O 10/14/2024 8:55 AM EDT [facility] Rh Type Positive 10/14/2024 8:55 AM EDT [facility] Blood 10/14/2024 8:21 AM EDT 10/14/2024 8:33 AM EDT us Eleazar Nguyễn MD BLOOD BANK TEST ORDERAB LES Final Result Performing Organization Address [facility] Co de Phone Number [facility] [address] * (ABNORMAL) Protime-INR (10/14/2024 2:53 AM EDT) Protime 23.8(H) 12.1 - 15.1 seconds 10/14/2024 4:34 AM EDT [facility] INR 2.1(H) 0.9 - 1.1 10/14/2024 4:34 AM EDT [facility] Comment: RECOMMENDED THERAPEUTIC RANGES USING INR : Stable oral anticoagulant therapy: 2.0 - 3.0 Mechanical prosthetic heart valve: 2.5 - 3.5 Recurrent acute myocardial infarction: 2.5 - 3.5 Plasma 10/14/2024 2:53 AM EDT 10/14/2024 4:16 AM EDT us Eileen Schroeder MD, PhD LAB BLOOD ORDERABLES Final Result Performing Organization Address [facility] Co de Phone Number [facility] [address] [facility]. [address] * (ABNORMAL) Hepatic Function Panel (10/14/2024 2:53 AM EDT) Total Bilirubin 7.2(H) 0.0 - 1.5 mg/dL 10/14/2024 4:45 AM EDT [facility] Bilirubin, Direct 3.86(H) 0.00 - 0.40 mg/dL 10/14/2024 4:45 AM EDT [facility] AST 41(H) 13 - 39 U/L 10/14/2024 4:45 AM EDT [facility] ALT 22 7 - 52 U/L 10/14/2024 4:45 AM EDT [facility] Alkaline Phosphatase 119 36 - 125 U/L 10/14/2024 4:45 AM EDT [facility] Total Protein 4.6(L) 6.4 - 8.9 g/dL 10/14/2024 4:45 AM EDT [facility] Albumin 3.3(L) 3.5 - 5.7 g/dL 10/14/2024 4:45 AM EDT [facility] Bilirubin, Indirect 3.34(H) 0.00 - 1.10 mg/dL 10/14/2024 4:45 AM EDT [facility] Plasma 10/14/2024 2:53 AM EDT 10/14/2024 4:16 AM EDT Eileen Schroeder MD, PhD LAB BLOOD ORDERABLES Final Result Performing Organization Address [facility]/ZIP Co de Phone Number [facility] [address] [place] [address] * Magnesium (10/14/2024 2:53 AM EDT) Magnesium 1.9 1.5 - 2.5 mg/dL 10/14/2024 4:45 AM EDT [facility] Plasma 10/14/2024 2:53 AM EDT 10/14/2024 4:16 AM EDT Eileen Schroeder MD, PhD LAB BLOOD ORDERABLES Final Result [facility] [address] [place] [address] * (ABNORMAL) Renal Function Panel w/EGFR (10/14/2024 2:53 AM EDT) Sodium 136 133 - 146 mmol/L 10/14/2024 4:45 AM EDT [facility] Potassium 3.5 3.5 - 5.3 mmol/L 10/14/2024 4:45 AM EDT [facility] Chloride 107 98 - 110 mmol/L 10/14/2024 4:45 AM EDT [facility] CO2 16(L) 21 - 33 mmol/L 10/14/2024 4:45 AM EDT [facility] Anion Gap 13 3 - 16 mmol/L 10/14/2024 4:45 AM EDT [facility] BUN 55(H) 7 - 25 mg/dL 10/14/2024 4:45 AM EDT [facility] Creatinine 3.01(H) 0.60 - 1.30 mg/dL 10/14/2024 4:45 AM EDT [facility] Glucose 95 70 - 100 mg/dL 10/14/2024 4:45 AM EDT [facility] Calcium 8.5(L) 8.6 - 10.3 mg/dL 10/14/2024 4:45 AM EDT [facility] Phosphorus 4.4 2.1 - 4.7 mg/dL 10/14/2024 4:45 AM EDT [facility] Albumin 3.3(L) 3.5 - 5.7 g/dL 10/14/2024 4:45 AM EDT [facility] Osmolality, Calculated 297 278 - 305 mOsm/kg 10/14/2024 4:45 AM EDT [facility] EGFR 26 10/14/2024 4:45 AM EDT [facility] Comment:As of 2021, the estimated [...] BLOOD ORDERABLES Final Result [facility] [address] * (ABNORMAL) CBC (10/14/2024 2:53 AM EDT) WBC 5.5 3.8 - 10.8 10E3/uL 10/14/2024 5:00 AM EDT [facility] RBC 2.09(L) 4.20 - 5.80 10E6/uL 10/14/2024 5:00 AM EDT [facility] Hemoglobin 7.6(L) 13.2 - 17.1 g/dL 10/14/2024 5:00 AM EDT [facility] Hematocrit 21.3(L) 38.5 - 50.0 % 10/14/2024 5:00 AM EDT [facility] MCV 101.7(H) 80.0 - 100.0 fL 10/14/2024 5:00 AM EDT [facility] MCH 36.3(H) 27.0 - 33.0 pg 10/14/2024 5:00 AM EDT [facility] MCHC 35.7 32.0 - 36.0 g/dL 10/14/2024 5:00 AM EDT [facility] RDW 17.6(H) 11.0 - 15.0 % 10/14/2024 5:00 AM EDT [facility] Platelets 35(L) 140 - 400 10E3/uL 10/14/2024 5:00 AM EDT [facility] Comment: Specimen checked for clots. None detected. Slide Reviewed for PLT Clumps. None Seen. MPV 8.5 7.5 - 11.5 fL 10/14/2024 5:00 AM EDT [facility] Whole Blood 10/14/2024 2:53 AM EDT 10/14/2024 4:17 AM EDT Eileen Schroeder MD, PhD LAB BLOOD ORDERABLES Final Result [facility] [address] * Cardiac Cath Documents Scan (10/14/2024 2:06 AM EDT) us Scanning [facility] SCAN DOCS - NO RESULTS Final [...] mL of GADOBUTROL 1 MMOL/ML [facility] ([facility]) administered intravenously COMPARISON: CT 09/03/2024. [...] mL of GADOBUTROL 1 MMOL/ML INTRAVENOUS SYRINGE ([facility])administered intravenously COMPARISON: CT 09/03/2024. Ultrasound [...] - 15.1 seconds 10/13/2024 6:12 AM EDT [facility] INR 2.1(H) 0.9 - 1.1 10/13/2024 6:12 AM EDT [facility] Comment: RECOMMENDED THERAPEUTIC RANGES USING INR : Stable oral anticoagulant therapy: 2.0 - 3.0 Mechanical prosthetic heart valve: 2.5 - 3.5 Recurrent acute myocardial infarction: 2.5 - 3.5 Plasma 10/13/2024 5:35 AM EDT 10/13/2024 5:52 AM EDT Eileen Schroeder MD, PhD LAB BLOOD ORDERABLES Final Result [facility] [address] [place] [address], [facility] * (ABNORMAL) Hepatic Function Panel (10/13/2024 5:35 AM EDT) Total Bilirubin 6.5(H) 0.0 - 1.5 mg/dL 10/13/2024 6:30 AM EDT [facility] Bilirubin, Direct 3.53(H) 0.00 - 0.40 mg/dL 10/13/2024 6:30 AM EDT [facility] AST 42(H) 13 - 39 U/L 10/13/2024 6:30 AM EDT [facility] ALT 19 7 - 52 U/L 10/13/2024 6:30 AM EDT [facility] Alkaline Phosphatase 108 36 - 125 U/L 10/13/2024 6:30 AM EDT [facility] Total Protein 4.4(L) 6.4 - 8.9 g/dL 10/13/2024 6:30 AM EDT [facility] Albumin 3.1(L) 3.5 - 5.7 g/dL 10/13/2024 6:30 AM EDT [facility] Bilirubin, Indirect 2.97(H) 0.00 - 1.10 mg/dL 10/13/2024 6:30 AM EDT [facility] Plasma 10/13/2024 5:35 AM EDT 10/13/2024 5:52 AM EDT Eileen Schroeder MD, PhD LAB BLOOD ORDERABLES Final Result Performing Organization Address [facility] Co de Phone Number [facility] [address] * Magnesium (10/13/2024 5:35 AM EDT) Magnesium 2.0 1.5 - 2.5 mg/dL 10/13/2024 6:30 AM EDT [facility] Plasma 10/13/2024 5:35 AM EDT 10/13/2024 5:52 AM EDT Eileen Schroeder MD, PhD LAB BLOOD ORDERABLES Final Result Performing Organization Address City/[facility]/ZIP Co de Phone Number [facility] [address] * (ABNORMAL) Renal Function Panel w/EGFR (10/13/2024 5:35 AM EDT) Sodium 134 133 - 146 mmol/L 10/13/2024 6:30 AM EDT [facility] Potassium 3.7 3.5 - 5.3 mmol/L 10/13/2024 6:30 AM EDT [facility] Chloride 109 98 - 110 mmol/L 10/13/2024 6:30 AM EDT [facility] CO2 14(L) 21 - 33 mmol/L 10/13/2024 6:30 AM EDT [facility] Anion Gap 11 3 - 16 mmol/L 10/13/2024 6:30 AM EDT [facility] BUN 54(H) 7 - 25 mg/dL 10/13/2024 6:30 AM EDT [facility] Creatinine 2.99(H) 0.60 - 1.30 mg/dL 10/13/2024 6:30 AM EDT [facility] Glucose 116(H) 70 - 100 mg/dL 10/13/2024 6:30 AM EDT [facility] Calcium 8.3(L) 8.6 - 10.3 mg/dL 10/13/2024 6:30 AM EDT [facility] Phosphorus 4.5 2.1 - 4.7 mg/dL 10/13/2024 6:30 AM EDT [facility] Albumin 3.1(L) 3.5 - 5.7 g/dL 10/13/2024 6:30 AM EDT [facility] Osmolality, Calculated 294 278 - 305 mOsm/kg 10/13/2024 6:30 AM EDT [facility] EGFR 26 10/13/2024 6:30 AM EDT [facility] Comment:As of 2021, the estimated [...] BLOOD ORDERABLES Final Result [facility] [address] [place] [address], [facility] * (ABNORMAL) CBC (10/13/2024 5:35 AM EDT) WBC 4.7 3.8 - 10.8 10E3/uL 10/13/2024 6:22 AM EDT [facility] RBC 2.06(L) 4.20 - 5.80 10E6/uL 10/13/2024 6:22 AM EDT [facility] Hemoglobin 7.4(L) 13.2 - 17.1 g/dL 10/13/2024 6:22 AM EDT [facility] Hematocrit 21.7(L) 38.5 - 50.0 % 10/13/2024 6:22 AM EDT [facility] MCV 105.4(H) 80.0 - 100.0 fL 10/13/2024 6:22 AM EDT [facility] MCH 35.9(H) 27.0 - 33.0 pg 10/13/2024 6:22 AM EDT [facility] MCHC 34.0 32.0 - 36.0 g/dL 10/13/2024 6:22 AM EDT [facility] RDW 18.5(H) 11.0 - 15.0 % 10/13/2024 6:22 AM EDT [facility] Platelets 35(L) 140 - 400 10E3/uL 10/13/2024 6:22 AM EDT [facility] Comment: CNV Specimen checked for clots. None detected. MPV 8.4 7.5 - 11.5 fL 10/13/2024 6:22 AM EDT [facility] Whole Blood 10/13/2024 5:35 AM EDT 10/13/2024 5:53 AM EDT us Eileen Schroeder MD, PhD LAB BLOOD ORDERABLES Final Result Performing Organization Address [facility]/ZIP Co de Phone Number [facility] [address] [facility] [place]. [address] * (ABNORMAL) Ammonia (10/13/2024 5:35 AM EDT) Ammonia 203(HH) 27 - 90 ug/dL 10/13/2024 7:16 AM EDT [facility] Comment: HEMOLYSIS EVIDENT. RESULTS MAY BE INFLUENCED. Critical Result [id number] Called to and read back by: KEY MELO RN at: 10/13/2024 07:15:55 by:NISREEN Plasma 10/13/2024 5:35 AM EDT 10/13/2024 6:19 AM EDT us Ellis Mays DO LAB BLOOD ORDERABLES Final Resul t Performing Organization Address [facility]/ZIP Co de Phone Number [facility] [address] [facility]. [address] * CARISA Rhythm Strip - Scan (10/12/2024 10:30 PM EDT) us Scanning [facility] SCAN DOCS - NO RESULTS Final Res ult * (ABNORMAL) Protime-INR (10/12/2024 5:44 AM EDT) Protime 25.7(H) 12.1 - 15.1 seconds 10/12/2024 6:12 AM EDT [facility] INR 2.3(H) 0.9 - 1.1 10/12/2024 6:12 AM EDT [facility] Comment: RECOMMENDED THERAPEUTIC RANGES USING INR : Stable oral anticoagulant therapy: 2.0 - 3.0 Mechanical prosthetic heart valve: 2.5 - 3.5 Recurrent acute myocardial infarction: 2.5 - 3.5 Plasma 10/12/2024 5:44 AM EDT 10/12/2024 5:58 AM EDT Eileen Schroeder MD, PhD LAB BLOOD ORDERABLES Final Result Performing Organization Address [facility] de Phone Number [facility] [address] * (ABNORMAL) Hepatic Function Panel (10/12/2024 5:44 AM EDT) Total Bilirubin 6.5(H) 0.0 - 1.5 mg/dL 10/12/2024 6:29 AM EDT [facility] Bilirubin, Direct 3.64(H) 0.00 - 0.40 mg/dL 10/12/2024 6:29 AM EDT [facility] AST 40(H) 13 - 39 U/L 10/12/2024 6:29 AM EDT [facility] ALT 19 7 - 52 U/L 10/12/2024 6:29 AM EDT [facility] Alkaline Phosphatase 99 36 - 125 U/L 10/12/2024 6:29 AM EDT [facility] Total Protein 4.2(L) 6.4 - 8.9 g/dL 10/12/2024 6:29 AM EDT [facility] Albumin 3.1(L) 3.5 - 5.7 g/dL 10/12/2024 6:29 AM EDT [facility] Bilirubin, Indirect 2.86(H) 0.00 - 1.10 mg/dL 10/12/2024 6:29 AM EDT [facility] Plasma 10/12/2024 5:44 AM EDT 10/12/2024 5:58 AM EDT Eileen Schroeder MD, PhD LAB BLOOD ORDERABLES Final Result Performing Organization Address [facility] Co de Phone Number [facility] [address] * Magnesium (10/12/2024 5:44 AM EDT) Magnesium 1.9 1.5 - 2.5 mg/dL 10/12/2024 6:29 AM EDT [facility] Plasma 10/12/2024 5:4 4 AM EDT 10/12/2024 5:58 AM EDT us Eileen Schroeder MD, PhD LAB BLOOD ORDERABLES Final Result [facility] [address] [place], [place] [address] * (ABNORMAL) Renal Function Panel w/EGFR (10/12/2024 5:44 AM EDT) Sodium 135 133 - 146 mmol/L 10/12/2024 6:29 AM EDT [facility] Potassium 3.7 3.5 - 5.3 mmol/L 10/12/2024 6:29 AM EDT [facility] Chloride 109 98 - 110 mmol/L 10/12/2024 6:29 AM EDT [facility] CO2 17(L) 21 - 33 mmol/L 10/12/2024 6:29 AM EDT [facility] [facility] Anion Gap 9 3 - 16 mmol/L 10/12/2024 6:29 AM EDT [facility] BUN 52(H) 7 - 25 mg/dL 10/12/2024 6:29 AM EDT [facility] Creatinine 2.94(H) 0.60 - 1.30 mg/dL 10/12/2024 6:29 AM EDT [facility] Glucose 121(H) 70 - 100 mg/dL 10/12/2024 6:29 AM EDT [facility] Calcium 8.5(L) 8.6 - 10.3 mg/dL 10/12/2024 6:29 AM EDT [facility] Phosphorus 4.6 2.1 - 4.7 mg/dL 10/12/2024 6:29 AM EDT [facility] Albumin 3.1(L) 3.5 - 5.7 g/dL 10/12/2024 6:29 AM EDT [facility] Osmolality, Calculated 295 278 - 305 mOsm/kg 10/12/2024 6:29 AM EDT [facility] EGFR 27 10/12/2024 6:29 AM [...] BLOOD ORDERABLES Final Result [facility] [address] [place] [address], [facility] * (ABNORMAL) CBC (10/12/2024 5:44 AM EDT) WBC 3.3(L) 3.8 - 10.8 10E3/uL 10/12/2024 7:06 AM EDT [facility] RBC 1.95(L) 4.20 - 5.80 10E6/uL 10/12/2024 7:06 AM EDT [facility] Hemoglobin 7.2(L) 13.2 - 17.1 g/dL 10/12/2024 7:06 AM EDT [facility] Hematocrit 19.7(L) 38.5 - 50.0 % 10/12/2024 7:06 AM EDT [facility] MCV 101.2(H) 80.0 - 100.0 fL 10/12/2024 7:06 AM EDT [facility] MCH 37.0(H) 27.0 - 33.0 pg 10/12/2024 7:06 AM EDT [facility] MCHC 36.5(H) 32.0 - 36.0 g/dL 10/12/2024 7:06 AM EDT [facility] RDW 17.6(H) 11.0 - 15.0 % 10/12/2024 7:06 AM EDT [facility] Platelets 30(L) 140 - 400 10E3/uL 10/12/2024 7:06 AM EDT [facility] Comment: Specimen checked for clots. None detected. Slide Reviewed for PLT Clumps. None Seen. Platelet Estimate Decreased 10/12/2024 7:06 AM EDT [facility] MPV 8.3 7.5 - 11.5 fL 10/12/2024 7:06 AM EDT [facility] Whole Blood 10/12/2024 5:44 AM EDT 10/12/2024 5:58 AM EDT Narrative [facility] - 10/12/2024 7:06 AM EDT Peripheral blood smear was scanned per review criteria approved by the laboratory medical record technician. us Eileen Schroeder MD, PhD LAB BLOOD ORDERABLES Final Result [facility] [address] * CARISA Rhythm Strip - Scan (10/11/2024 10:04 PM EDT) us Scanning [facility] SCAN DOCS - NO RESULTS Final Res ult * (ABNORMAL) Protime-INR (10/11/2024 3:02 AM EDT) Protime 26.8(H) 12.1 - 15.1 seconds 10/11/2024 3:30 AM EDT [facility] INR 2.4(H) 0.9 - 1.1 10/11/2024 3:30 AM EDT [facility] Comment: RECOMMENDED THERAPEUTIC RANGES USING INR : Stable oral anticoagulant therapy: 2.0 - 3.0 Mechanical prosthetic heart valve: 2.5 - 3.5 Recurrent acute myocardial infarction: 2.5 - 3.5 Plasma 10/11/2024 3:02 AM EDT 10/11/2024 3:08 AM EDT us Eileen Schroeder MD, PhD LAB BLOOD ORDERABLES Final Result Performing Organization Address [facility] Co de Phone Number [facility] [address] * (ABNORMAL) Hepatic Function Panel (10/11/2024 3:02 AM EDT) Total Bilirubin 7.3(H) 0.0 - 1.5 mg/dL 10/11/2024 3:38 AM EDT [facility] Bilirubin, Direct 3.85(H) 0.00 - 0.40 mg/dL 10/11/2024 3:38 AM EDT [facility] AST 39 13 - 39 U/L 10/11/2024 3:38 AM EDT [facility] ALT 20 7 - 52 U/L 10/11/2024 3:38 AM EDT [facility] Alkaline Phosphatase 88 36 - 125 U/L 10/11/2024 3:38 AM EDT [facility] Total Protein 4.5(L) 6.4 - 8.9 g/dL 10/11/2024 3:38 AM EDT [facility] Albumin 3.3(L) 3.5 - 5.7 g/dL 10/11/2024 3:38 AM EDT [facility] Bilirubin, Indirect 3.45(H) 0.00 - 1.10 mg/dL 10/11/2024 3:38 AM EDT [facility] Plasma 10/11/2024 3:02 AM EDT 10/11/2024 3:08 AM EDT us Eileen Schroeder MD, PhD LAB BLOOD ORDERABLES Final Result Performing Organization Address [facility] Co de Phone Number [facility] [address] * Magnesium (10/11/2024 3:02 AM EDT) Magnesium 2.0 1.5 - 2.5 mg/dL 10/11/2024 3:38 AM EDT [facility] Plasma 10/11/2024 3:02 AM EDT 10/11/2024 3:08 AM EDT Eileen Schroeder MD, PhD LAB BLOOD ORDERABLES Final Result [facility] [address] [place] [address], [facility] * (ABNORMAL) Renal Function Panel w/EGFR (10/11/2024 3:02 AM EDT) Sodium 134 133 - 146 mmol/L 10/11/2024 3:38 AM EDT [facility] Potassium 3.6 3.5 - 5.3 mmol/L 10/11/2024 3:38 AM EDT [facility] Chloride 108 98 - 110 mmol/L 10/11/2024 3:38 AM EDT [facility] CO2 16(L) 21 - 33 mmol/L 10/11/2024 3:38 AM EDT [facility] Anion Gap 10 3 - 16 mmol/L 10/11/2024 3:38 AM EDT [facility] BUN 49(H) 7 - 25 mg/dL 10/11/2024 3:38 AM EDT [facility] Creatinine 2.77(H) 0.60 - 1.30 mg/dL 10/11/2024 3:38 AM EDT [facility] Glucose 112(H) 70 - 100 mg/dL 10/11/2024 3:38 AM EDT [facility] Calcium 8.9 8.6 - 10.3 mg/dL 10/11/2024 3:38 AM EDT [facility] Phosphorus 3.5 2.1 - 4.7 mg/dL 10/11/2024 3:38 AM EDT [facility] Albumin 3.3(L) 3.5 - 5.7 g/dL 10/11/2024 3:38 AM EDT [facility] Osmolality, Calculated 292 278 - 305 mOsm/kg 10/11/2024 3:38 AM EDT [facility] EGFR 29 10/11/2024 3:38 AM EDT [facility] Comment:As of 2021, the estimated [...] BLOOD ORDERABLES Final Result Performing Organization Address City/State/[facility] Co de Phone Number [facility] [address] * (ABNORMAL) CBC (10/11/2024 3:02 AM EDT) WBC 4.0 3.8 - 10.8 10E3/uL 10/11/2024 3:55 AM EDT [facility] RBC 2.11(L) 4.20 - 5.80 10E6/uL 10/11/2024 3:55 AM EDT [facility] Hemoglobin 7.7(L) 13.2 - 17.1 g/dL 10/11/2024 3:55 AM EDT [facility] Hematocrit 21.2(L) 38.5 - 50.0 % 10/11/2024 3:55 AM EDT [facility] MCV 100.5(H) 80.0 - 100.0 fL 10/11/2024 3:55 AM EDT [facility] MCH 36.4(H) 27.0 - 33.0 pg 10/11/2024 3:55 AM EDT [facility] MCHC 36.2(H) 32.0 - 36.0 g/dL 10/11/2024 3:55 AM EDT [facility] RDW 17.9(H) 11.0 - 15.0 % 10/11/2024 3:55 AM EDT [facility] Platelets 32(L) 140 - 400 10E3/uL 10/11/2024 3:55 AM EDT [facility] Comment: Specimen checked for clots. None detected. Slide Reviewed for PLT Clumps. None Seen. Platelet Estimate Decreased 10/11/2024 3:55 AM EDT [facility] MPV 8.1 7.5 - 11.5 fL 10/11/2024 3:55 AM EDT [facility] Whole Blood 10/11/2024 3:02 AM EDT 10/11/2024 3:08 AM EDT Narrative [facility] - 10/11/2024 3:55 AM EDT Peripheral blood smear was scanned per review criteria approved by the laboratory medical record technician. us Eileen Schroeder MD, PhD LAB BLOOD ORDERABLES Final Result [facility] [address] [facility] * Vancomycin, random (10/11/2024 3:02 AM EDT) Vancomycin Random 13.4 ug/mL 10/11/2024 3:37 AM EDT [facility] Comment:Reference range not established for this test. Plasma 10/11/2024 3:02 AM EDT 10/11/2024 3:08 AM EDT us Jodi FreireD LAB BLOOD ORDERABLES Final Result Performing Organization Address City/[facility]/ZIP Co de Phone Number [facility] [address] [facility]. [address] * IR Paracentesis incl imaging guide [...] diagnostic and therapeutic paracentesis. Bakari Wahl CNP, Manager Mobility Procedure and Findings: The procedure was performed [...] Using ultrasound guidance, a 10 cm, 5-F Synter[employer] Centesis catheter was placed into the right [...] for diagnostic andtherapeutic paracentesis. Bakari Wahl CNP, Manager Mobility Procedure and Findings: The procedure was performed [...] Using ultrasound guidance, a 10 cm, 5-F [employer] Centesis catheter was placedinto the right lower [...] 10/10/2024 3:31 PM EDT Chari Vanegas MD [facility] IR ORDERABLES Final Result * Stress Testing Lab - scan (10/10/2024 3:08 PM EDT) [facility] - NO RESULTS Final Res ult * (ABNORMAL) Body fluid cell count (10/10/2024 1:51 PM EDT) Color, Fluid Yellow(A) Colorless, Pale Yellow 10/10/2024 5:29 PM EDT [facility] Clarity, Fluid Clear 10/10/2024 5:29 PM EDT [facility] Neutrophil %, Fluid 9 % 10/10/2024 5:29 PM EDT [facility] Lymphocytes %, Fluid 13 % 10/10/2024 5:29 PM EDT [facility] Mesothelial %, Fluid 6 % 10/10/2024 5:29 PM EDT [facility] Macrophage %, Fluid 72 % 10/10/2024 5:29 PM EDT [facility] RBC, Fluid 2,662 /uL 10/10/2024 4:41 PM EDT [facility] Total Nucleated Cells, Fluid 89 /uL 10/10/2024 4:41 PM EDT [facility] Comment:Total Nucleated Cell s represent WBCs and other nucleated cells in the fluid such as lining cells. Ascitic Fluid ABDOMEN / Unknown 1:51 PM EDT 10/10/2024 3:56 PM EDT Gerri Peterson MD BODY FLUIDS AND STOOLS ORDERABL ES Final Result Performing Organization Address City/[facility]/ZIP Co de Phone Number [facility] [address] [facility]. [address] * Body Fluid Culture plus Stain (10/10/2024 1:51 PM EDT) Gram Stain Result Cytospin Results: [facility] Gram Stain Result Polymorphonuclear Leukocytes Seen; [facility] Gram Stain Result No Organisms Seen; [facility] Culture Result No Growth After 5 Days [facility] Fluid ABDOMEN / Unknown 10/10/2024 1:51 PM EDT 10/10/2024 3:56 PM EDT Gerri Peterson MD MICROBIOLOGY - GENERAL ORDERABL ES Final Result [facility] [address] [facility]. [address] * UPPER GI ENDOSCOPY (10/10/2024 11:48 AM EDT) 10/10/2024 11:4 8 AM EDT Narrative [facility] - 10/10/2024 12:34 PM EDT [id number] Procedure Date: 10/10/2024 11:48 AM Patient Name: Julien Gilbert Date of : 1985 Admit Type: Inpatient Age: 39 Gender: Male Note Status: Finalized Attending MD: Lino Soto MD, [id number] Procedure: Upper GI endoscopy Indications: Gastroesopahgeal variceal [...] verified by the physician, the nurse, the technical support internship and the oil and gas exploration technician in the pre-procedure area in the [...] to hypotension Procedure Code(s): --- Professional --- 21343, GC, Esophagogastroduodenoscopy, flexible, transoral; diagnostic, including collection of specimen(s) by brushing or washing, when performed (separate procedure) Diagnosis Code(s): --- Professional --- I85.00, Esophageal varices without bleeding K76.6, Portal hypertension K31.89, Other diseases of stomach and duodenum CPT copyright 2022 [employer]. All rights reserved. The codes documented in this report are preliminary and upon ornamental metal fabricator apprentice review may be revised to meet current [...] In: 12:10:16 PM Scope Out: 12:17:[address] [place] [address], [facility] us Provider Not In System PROCEDURE/MINOR SURGICAL ORDERABLES Final Result Performing Organization Address City/[facility] Co de Phone Number [facility] * (ABNORMAL) Protime-INR (10/10/2024 5:23 AM EDT) Protime 23.9(H) 12.1 - 15.1 seconds 10/10/2024 6:11 AM EDT [facility] INR 2.1(H) 0.9 - 1.1 10/10/2024 6:11 AM EDT [facility] Comment: RECOMMENDED THERAPEUTIC RANGES USING INR : Stable oral anticoagulant therapy: 2.0 - 3.0 Mechanical prosthetic heart valve: 2.5 - 3.5 Recurrent acute myocardial infarction: 2.5 - 3.5 Plasma 10/10/2024 5:23 AM EDT 10/10/2024 5:50 AM EDT us Eileen Schroeder MD, PhD LAB BLOOD ORDERABLES Final Result Performing Organization Address City/[facility]/ZIP Co de Phone Number [facility] [address] [place] [address] * (ABNORMAL) Hepatic Function Panel (10/10/2024 5:23 AM EDT) Total Bilirubin 8.6(H) 0.0 - 1.5 mg/dL 10/10/2024 6:21 AM EDT [facility] Bilirubin, Direct 4.65(H) 0.00 - 0.40 mg/dL 10/10/2024 6:21 AM EDT [facility] AST 40(H) 13 - 39 U/L 10/10/2024 6:21 AM EDT [facility] ALT 22 7 - 52 U/L 10/10/2024 6:21 AM EDT [facility] Alkaline Phosphatase 118 36 - 125 U/L 10/10/2024 6:21 AM EDT [facility] Total Protein 4.6(L) 6.4 - 8.9 g/dL 10/10/2024 6:21 AM EDT [facility] Albumin 3.3(L) 3.5 - 5.7 g/dL 10/10/2024 6:21 AM EDT [facility] Bilirubin, Indirect 3.95(H) 0.00 - 1.10 mg/dL 10/10/2024 6:21 AM EDT [facility] Plasma 10/10/2024 5:23 AM EDT 10/10/2024 5:50 AM EDT Eileen Schroeder MD, PhD LAB BLOOD ORDERABLES Final Result Performing Organization Address City/[facility]/ZIP Co de Phone Number [facility] [address] * Magnesium (10/10/2024 5:23 AM EDT) Magnesium 1.9 1.5 - 2.5 mg/dL 10/10/2024 6:21 AM EDT [facility] Plasma 10/10/2024 5:23 AM EDT 10/10/2024 5:50 AM EDT Eileen Schroeder MD, PhD LAB BLOOD ORDERABLES Final Result [facility] [address] * (ABNORMAL) Renal Function Panel w/EGFR (10/10/2024 5:23 AM EDT) Sodium 135 133 - 146 mmol/L 10/10/2024 6:21 AM EDT [facility] Potassium 3.6 3.5 - 5.3 mmol/L 10/10/2024 6:21 AM EDT [facility] Chloride 108 98 - 110 mmol/L 10/10/2024 6:21 AM EDT [facility] CO2 17(L) 21 - 33 mmol/L 10/10/2024 6:21 AM EDT [facility] Anion Gap 10 3 - 16 mmol/L 10/10/2024 6:21 AM EDT [facility] BUN 53(H) 7 - 25 mg/dL 10/10/2024 6:21 AM EDT [facility] Creatinine 2.85(H) 0.60 - 1.30 mg/dL 10/10/2024 6:21 AM EDT [facility] Glucose 113(H) 70 - 100 mg/dL 10/10/2024 6:21 AM EDT [facility] Calcium 9.0 8.6 - 10.3 mg/dL 10/10/2024 6:21 AM EDT [facility] Phosphorus 3.3 2.1 - 4.7 mg/dL 10/10/2024 6:21 AM EDT [facility] Albumin 3.3(L) 3.5 - 5.7 g/dL 10/10/2024 6:21 AM EDT [facility] Osmolality, Calculated 295 278 - 305 mOsm/kg 10/10/2024 6:21 AM EDT [facility] EGFR 28 10/10/2024 6:21 AM EDT [facility] Comment:As of 2021, the estimated [...] BLOOD ORDERABLES Final Result [facility] [address] [place] [address], [facility] * (ABNORMAL) CBC (10/10/2024 5:23 AM EDT) WBC 5.1 3.8 - 10.8 10E3/uL 10/10/2024 6:14 AM EDT [facility] RBC 2.04(L) 4.20 - 5.80 10E6/uL 10/10/2024 6:14 AM EDT [facility] Hemoglobin 7.3(L) 13.2 - 17.1 g/dL 10/10/2024 6:14 AM EDT [facility] Hematocrit 20.6(L) 38.5 - 50.0 % 10/10/2024 6:14 AM EDT [facility] MCV 101.2(H) 80.0 - 100.0 fL 10/10/2024 6:14 AM EDT [facility] MCH 36.0(H) 27.0 - 33.0 pg 10/10/2024 6:14 AM EDT [facility] MCHC 35.5 32.0 - 36.0 g/dL 10/10/2024 6:14 AM EDT [facility] RDW 17.6(H) 11.0 - 15.0 % 10/10/2024 6:14 AM EDT [facility] Platelets 39(L) 140 - 400 10E3/uL 10/10/2024 6:14 AM EDT [facility] Comment: CNV Specimen checked for clots. None detected. MPV 9.8 7.5 - 11.5 fL 10/10/2024 6:14 AM EDT [facility] Whole Blood 10/10/2024 5:23 AM EDT 10/10/2024 5:51 AM EDT us Eileen Schroeder MD, PhD LAB BLOOD ORDERABLES Final Result [facility] [address] * Vancomycin, random (10/10/2024 5:23 AM EDT) Vancomycin Random 16.4 ug/mL 10/10/2024 6:22 AM EDT [facility] Comment:Reference range not established for this test. Plasma 10/10/2024 5:23 AM EDT 10/10/2024 5:51 AM EDT us Jodi Ortiz PharmD LAB BLOOD ORDERABLES Final Result [facility] [address] * ECHO STRESS W/ CONTRAST (10/09/2024 4:37 PM EDT) Anatomical Region Laterality Modality Chest Ultrasound 10/09/2024 2:40 PM EDT Narrative 10/09/2024 6:45 PM EDT * [facility]* [address] [place] [address] Stress Echocardiogram Patient: Julien Gilbert Room: 8142 Height: 76in MR Number: [id number] : 1985 Weight: 262lb Account: [id number] Gender: M BP: 125 / 77 Study Date: 10/09/2024 Age: 39 BSA: 2.48m^2 Referring physician: Gerri Peterson Interpreting physician: Tonya Henriquez MD FELLOW Lisa Jha MD PERFORMING Tonya 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 The infusion was terminated [...] at baseline or with provocation, shows no xsufi-yu-znqh atrial level shunt. - Pulmonary arteries: Systolic [...] at baseline or with provocation, shows no yhesa-pb-umia atrial level shunt. Pulmonary artery: - Systolic [...] at baseline or with provocation, shows no xcxwq-fi-mupy atrial level shunt. Pericardium: - There is [...] peak heart rate and blood pressure was 37623jo Hg/min. 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 PMH: EtOH Use Disorder. Risk factors: Hypertension. Dyslipidemia. Study data: Height: 76in. 193cm. Weight: 262lb. 118.8kg. The previousstudy was not available, so comparison was made to the report of 07/15/2024. Study status: Routine. [facility]. Intravenous [...] was augmented by the addition of hand crisis mental health therapist and leg lifts. The infusion was terminated [...] at baseline or with provocation, shows no dfwst-jd-rzuj atrial level shunt. - Pulmonary arteries: Systolic [...] study at baseline or with provocation, showsno ywode-pm-pbvf atrial level shunt. Pulmonary artery: - Systolic [...] at baseline or with provocation, shows no fszcx-iq-yxng atrial level shunt. Pericardium: - There is [...] heart rate). The maximal predicted heart rate [id number]. The target heart rate was 152bpm. The target heart rate was achieved.The heart rate response to stress is normal. There is a normal resting blood pressure with an appropriate response to stress. The rate-pressureproduct for the peak heart rate and blood pressure was 16194ic Hg/min. Stress testing did not produce any [...] Reviewed and confirmed by Tonya Henriquez MD [id number] us Gerri Peterson MD CV ECHO ORDERABLES Final Result * (ABNORMAL) Renal Function Panel w/EGFR, STAT (10/09/2024 1:05 PM EDT) Sodium 134 133 - 146 mmol/L 10/09/2024 2:10 PM EDT [facility] Potassium 3.7 3.5 - 5.3 mmol/L 10/09/2024 2:10 PM EDT [facility] Chloride 105 98 - 110 mmol/L 10/09/2024 2:10 PM EDT [facility] CO2 17(L) 21 - 33 mmol/L 10/09/2024 2:10 PM EDT [facility] Anion Gap 12 3 - 16 mmol/L 10/09/2024 2:10 PM EDT [facility] BUN 53(H) 7 - 25 mg/dL 10/09/2024 2:10 PM EDT [facility] Creatinine 2.89(H) 0.60 - 1.30 mg/dL 10/09/2024 2:10 PM EDT [facility] Glucose 108(H) 70 - 100 mg/dL 10/09/2024 2:10 PM EDT [facility] Calcium 9.3 8.6 - 10.3 mg/dL 10/09/2024 2:10 PM EDT [facility] Phosphorus 3.4 2.1 - 4.7 mg/dL 10/09/2024 2:10 PM EDT [facility] Albumin 3.6 3.5 - 5.7 g/dL 10/09/2024 2:10 PM EDT [facility] Osmolality, Calculated 293 278 - 305 mOsm/kg 10/09/2024 2:10 PM EDT [facility] EGFR 27 10/09/2024 2:10 PM EDT [facility] Comment:As of 2021, the estimated [...] BLOOD ORDERABLES Final Result [facility] [address] [place] [address], [facility] * (ABNORMAL) Renal Function Panel w/EGFR, STAT (10/09/2024 8:14 AM EDT) Sodium 134 133 - 146 mmol/L 10/09/2024 8:47 AM T [facility] Potassium 3.4(L) 3.5 - 5.3 mmol/L 10/09/2024 8:47 AM T [facility] Chloride 107 98 - 110 mmol/L 10/09/2024 8:47 AM EDT [facility] CO2 17(L) 21 - 33 mmol/L 10/09/2024 8:47 AM EDT [facility] Anion Gap 10 3 - 16 mmol/L 10/09/2024 8:47 AM T [facility] BUN 54(H) 7 - 25 mg/dL 10/09/2024 8:47 AM [facility] Creatinine 3.04(H) 0.60 - 1.30 mg/dL 10/09/2024 8:47 AM [facility] Glucose 124(H) 70 - 100 mg/dL 10/09/2024 8:47 AM [facility] Calcium 9.0 8.6 - 10.3 mg/dL 10/09/2024 8:47 AM [facility] Phosphorus 3.5 2.1 - 4.7 mg/dL 10/09/2024 8:47 AM [facility] Albumin 3.4(L) 3.5 - 5.7 g/dL 10/09/2024 8:47 AM [facility] Osmolality, Calculated 294 278 - 305 mOsm/kg 10/09/2024 8:47 AM [facility] EGFR 26 10/09/2024 8:47 AM [facility] Comment:As of 2021, the [...] MD LAB BLOOD ORDERABLES Final Resu lt [facility] [address] * Prepare RBC, leukoreduced, 1 Units (10/09/2024 6:16 AM EDT) Product Code [id number] [facility] Unit Number [id number] [facility] Dispense Status Presumed Transfused_PT [facility] Blood Expiration Date [id number] [facility] Coding System [id number] [facility] Product us Eileen Schroeder MD, PhD BLOOD BANK PRODUCT OR DERABLES Final Result Performing Organization Address [facility]/ZIP Co de Phone Number HCLL * (ABNORMAL) Protime-INR (10/09/2024 4:59 AM EDT) Protime 26.5(H) 12.1 - 15.1 seconds 10/09/2024 6:30 AM EDT [facility] [facility] INR 2.4(H) 0.9 - 1.1 10/09/2024 6:30 AM EDT [facility] Comment: RECOMMENDED THERAPEUTIC RANGES USING INR : Stable oral anticoagulant therapy: 2.0 - 3.0 Mechanical prosthetic heart valve: 2.5 - 3.5 Recurrent acute myocardial infarction: 2.5 - 3.5 Plasma 10/09/2024 4:59 AM EDT 10/09/2024 5:55 AM EDT Eileen Schroeder MD, PhD LAB BLOOD ORDERABLES Final Result Performing Organization Address City/[facility]/ZIP Co de Phone Number [facility] [address] * (ABNORMAL) Hepatic Function Panel (10/09/2024 4:59 AM EDT) Total Bilirubin 9.0(H) 0.0 - 1.5 mg/dL 10/09/2024 6:42 AM EDT [facility] Bilirubin, Direct 4.60(H) 0.00 - 0.40 mg/dL 10/09/2024 6:42 AM EDT [facility] AST 38 13 - 39 U/L 10/09/2024 6:42 AM EDT [facility] ALT 18 7 - 52 U/L 10/09/2024 6:42 AM EDT [facility] Alkaline Phosphatase 122 36 - 125 U/L 10/09/2024 6:42 AM EDT [facility] Total Protein 4.8(L) 6.4 - 8.9 g/dL 10/09/2024 6:42 AM EDT [facility] Albumin 3.4(L) 3.5 - 5.7 g/dL 10/09/2024 6:42 AM EDT [facility] Bilirubin, Indirect 4.40(H) 0.00 - 1.10 mg/dL 10/09/2024 6:42 AM EDT [facility] Plasma 10/09/2024 4:59 AM EDT 10/09/2024 5:57 AM EDT Eileen Schroeder MD, PhD LAB BLOOD ORDERABLES Final Result [facility] [address] * Magnesium (10/09/2024 4:59 AM EDT) Magnesium 1.8 1.5 - 2.5 mg/dL 10/09/2024 6:42 AM EDT [facility] Plasma 10/09/2024 4:59 AM EDT 10/09/2024 5:57 AM EDT Eileen Schroeder MD, PhD LAB BLOOD ORDERABLES Final Result [facility] [address] [place] [address], [facility] * (ABNORMAL) Renal Function Panel w/EGFR (10/09/2024 4:59 AM EDT) Sodium 134 133 - 146 mmol/L 10/09/2024 6:42 AM EDT [facility] Potassium 3.3(L) 3.5 - 5.3 mmol/L 10/09/2024 6:42 AM EDT [facility] Chloride 107 98 - 110 mmol/L 10/09/2024 6:42 AM EDT [facility] CO2 16(L) 21 - 33 mmol/L 10/09/2024 6:42 AM EDT [facility] Anion Gap 11 3 - 16 mmol/L 10/09/2024 6:42 AM EDT [facility] BUN 56(H) 7 - 25 mg/dL 10/09/2024 6:42 AM EDT [facility] Creatinine 2.98(H) 0.60 - 1.30 mg/dL 10/09/2024 6:42 AM EDT [facility] Glucose 112(H) 70 - 100 mg/dL 10/09/2024 6:42 AM EDT [facility] Calcium 9.0 8.6 - 10.3 mg/dL 10/09/2024 6:42 AM EDT [facility] Phosphorus 3.5 2.1 - 4.7 mg/dL 10/09/2024 6:42 AM EDT [facility] Albumin 3.4(L) 3.5 - 5.7 g/dL 10/09/2024 6:42 AM EDT [facility] Osmolality, Calculated 294 278 - 305 mOsm/kg 10/09/2024 6:42 AM EDT [facility] EGFR 26 10/09/2024 6:42 AM EDT [facility] Comment:As of 2021, the estimated [...] BLOOD ORDERABLES Final Result [facility] [address] [id number], [facility] * (ABNORMAL) CBC (10/09/2024 4:59 AM EDT) WBC 4.6 3.8 - 10.8 10E3/uL 10/09/2024 6:21 AM EDT [facility] RBC 2.17(L) 4.20 - 5.80 10E6/uL 10/09/2024 6:21 AM EDT [facility] Hemoglobin 8.0(L) 13.2 - 17.1 g/dL 10/09/2024 6:21 AM EDT [facility] Hematocrit 21.8(L) 38.5 - 50.0 % 10/09/2024 6:21 AM EDT [facility] MCV 100.5(H) 80.0 - 100.0 fL 10/09/2024 6:21 AM EDT [facility] MCH 36.7(H) 27.0 - 33.0 pg 10/09/2024 6:21 AM EDT [facility] MCHC 36.5(H) 32.0 - 36.0 g/dL 10/09/2024 6:21 AM EDT [facility] RDW 18.1(H) 11.0 - 15.0 % 10/09/2024 6:21 AM EDT [facility] Platelets 36(L) 140 - 400 10E3/uL 10/09/2024 6:21 AM EDT [facility] Comment:Specimen checked for clots. None detected. MPV 8.3 7.5 - 11.5 fL 10/09/2024 6:21 AM EDT [facility] Whole Blood 10/09/2024 4:59 AM EDT 10/09/2024 5:56 AM EDT us Eileen Schroeder MD, PhD LAB BLOOD ORDERABLES Final Result Performing Organization Address City/[facility]/ZIP Co de Phone Number [facility] [address] * Renal Tx Recipient (10/09/2024 4:59 AM EDT) Pathologist [facility] Renal Transplant Recipient The request and specimen(s) for this test have been received and transported to the [facility] at [address] [place] [address]. The [facility] will report results directly to the client. 10/09/2024 7:26 AM EDT [facility] Blood 10/09/2024 4:59 AM EDT 10/09/2024 7:26 AM EDT us Aaron Gonzalez MD LAB BLOOD ORDERABLES Final Resu lt Performing Organization Address [facility] Co de Phone Number [facility] [address] * Vancomycin, random (10/09/2024 4:59 AM EDT) Pathologist [facility] Vancomycin Random 11.0 ug/mL 10/09/2024 6:33 AM EDT [facility] Comment:Reference range not established for this test. Plasma 10/09/2024 4:59 AM EDT 10/09/2024 5:56 AM EDT us Jodi FreireD LAB BLOOD ORDERABLES Final Result Performing Organization Address [facility] Co de Phone Number [facility] [address] * (ABNORMAL) CBC (10/08/2024 5:52 PM EDT) WBC 5.6 3.8 - 10.8 10E3/uL 10/08/2024 6:52 PM EDT [facility] RBC 2.38(L) 4.20 - 5.80 10E6/uL 10/08/2024 6:52 PM EDT [facility] Hemoglobin 8.3(L) 13.2 - 17.1 g/dL 10/08/2024 6:52 PM EDT [facility] Hematocrit 24.6(L) 38.5 - 50.0 % 10/08/2024 6:52 PM EDT [facility] MCV 103.2(H) 80.0 - 100.0 fL 10/08/2024 6:52 PM EDT [facility] MCH 34.7(H) 27.0 - 33.0 pg 10/08/2024 6:52 PM EDT [facility] MCHC 33.6 32.0 - 36.0 g/dL 10/08/2024 6:52 PM EDT [facility] RDW 18.5(H) 11.0 - 15.0 % 10/08/2024 6:52 PM EDT [facility] Platelets 39(L) 140 - 400 10E3/uL 10/08/2024 6:52 PM EDT [facility] Comment:CNV MPV 8.1 7.5 - 11.5 fL 10/08/2024 6:52 PM EDT [facility] Whole Blood 10/08/2024 5:52 PM EDT 10/08/2024 6:45 PM EDT us Eileen Schroeder MD, PhD LAB BLOOD ORDERABLES Final Result [facility] [address] * Transfuse RBC Has consent been [...] Mumps IgG Positive 10/08/2024 11:39 AM EDT [facility] MUMPS IGG NUM 99.00(H) 0.0 - 8.9 U/mL 10/08/2024 11:39 AM EDT [facility] Rubella IgG Scr Positive 10/08/2024 11:40 AM EDT [facility] RUB NUM 4.15(H) 0.00 - 0.89 INDEX 10/08/2024 11:40 AM EDT [facility] Rubeola Ab, IgG Positive 10/08/2024 11:39 AM EDT [facility] RUB IGG NUM 273.00(H) 0.00 - 13.40 U/mL 10/08/2024 11:39 AM EDT [facility] Serum 10/08/2024 10:2 5 AM EDT 10/08/2024 10:49 AM EDT Narrative [facility] - 10/08/2024 11:40 AM EDT [...] MD LAB BLOOD ORDERABLES Final Resu lt [facility] [address] [place] [address], [facility] * (ABNORMAL) Hemoglobin A1C (10/08/2024 10:25 AM EDT) Hemoglobin A1C 3.7(L) 4.0 - 5.6 % 10/09/2024 1:22 PM EDT [facility] Comment: Hemoglobin A1c Interpretation Guidelines: [...] MD LAB BLOOD ORDERABLES Final Resu lt [facility] [address] * (ABNORMAL) Vitamin D 25 Hydroxy (10/08/2024 10:25 AM EDT) Vit D, 25-Hydroxy 7.1(L) 30.0 - 100.0 ng/mL 10/08/2024 11:36 AM EDT [facility] Comment: Vitamin D deficiency has been defined by the [place] of [employer] (IOM) and an Endocrine Society [...] Final Resu lt Performing Organization Address City/[facility]/ZIP Co de Phone Number [facility] [address] [facility]. [address] * Iron Studies (Iron + TIBC) (10/08/2024 10:25 AM EDT) Iron 81 50 - 212 ug/dL 10/08/2024 11:23 AM EDT [facility] % Iron Saturation SEE COMMENT 15.0 - 55.0 % 10/08/2024 11:23 AM EDT [facility] Comment:Unable to calculate result because contributing result outside reportable range.. TIBC SEE COMMENT 261 - 462 ug/dL 10/08/2024 11:23 AM EDT [facility] Comment:Unable to calculate result because contributing result outside reportable range.. Serum 10/08/2024 10:2 5 AM EDT 10/08/2024 10:49 AM EDT Gerri Peterson MD LAB BLOOD ORDERABLES Final Resu lt Performing Organization Address [facility]/ZIP Co de Phone Number [facility] [address] * (ABNORMAL) Ferritin (10/08/2024 10:25 AM EDT) Ferritin 706.9(H) 23.9 - 336.2 ng/mL 10/08/2024 11:35 AM EDT [facility] Serum 10/08/2024 10:2 5 AM EDT 10/08/2024 10:49 AM EDT Gerri Peterson MD LAB BLOOD ORDERABLES Final Resu lt [facility] [address] [facility]. [address] * QuantiFERON TB2 Ag (10/08/2024 10:25 AM EDT) QuantiFERON TB2 Ag Value 0.07 10/10/2024 10:41 AM EDT [facility] Plasma 10/08/2024 10:2 5 AM EDT 10/08/2024 11:05 AM EDT Gerri Peterson MD LAB BLOOD ORDERABLES Final Resu lt [facility] [address] [facility]. [address] * QuantiFERON TB1 Ag (10/08/2024 10:25 AM EDT) QuantiFERON TB1 Ag Value 0.06 10/10/2024 10:41 AM EDT [facility] Plasma 10/08/2024 10:2 5 AM EDT 10/08/2024 11:05 AM EDT Result [facility] Gerri Peterson MD LAB BLOOD ORDERABLES Final Resu lt Performing Organization Address City/[facility]/ZIP Co de Phone Number [facility] [address] [facility]. [address] * QuantiFERON Nil (10/08/2024 10:25 AM EDT) QuantiFERON Nil 0.06 10:41 AM EDT [facility] Plasma 10/08/2024 10:2 5 AM EDT 10/08/2024 11:05 AM EDT Result [facility] Gerri Peterson MD LAB BLOOD ORDERABLES Final Resu lt [facility] [address] [facility]. [address] * QuantiFERON Mitogen (10/08/2024 10:25 AM EDT) QuantiFERON Interpretation Negative Negative 10/10/2024 10:41 AM EDT [facility] Comment:Negative result geovanny cates M. tuberculosis infection is NOT likely. Negative results do not preclude tuberculosis infection (especially in immunosuppressed patients). Negative results have a TB antigen minus Nil value less than 0.35 IU/mL. In cases with high suspicion of disease, retesting or additional testing with medical evaluation may be useful. QuantiFERON Mitogen 4.87 10/10 10:41 AM EDT [facility] Plasma 10/08/2024 10:2 5 AM EDT 10/08/2024 11:05 AM EDT Narrative [facility] - 10/10/2024 10:41 AM EDT [...] LAB BLOOD ORDERABLES Final Resu lt [facility] [address] [place] [address] * Reticulocyte Count, Auto (10/08/2024 7:41 AM EDT) Retic Ct Pct 1.35 0.50 - 2.00 % 10/08/2024 9:12 AM EDT [facility] Retic Ct Abs 26,190 25,000 - 90,000 /uL 10/08/2024 9:14 AM EDT [facility] Immature Retic Fract 0.37 0.09 - 0.56 10/08/2024 9:12 AM EDT [facility] Whole Blood 10/08/2024 7:41 AM EDT 10/08/2024 8:51 AM EDT Angie Blanchard MD LAB BLOOD ORDERABLES Final Res ult [facility] [address] [facility]. [address] * (ABNORMAL) Haptoglobin (10/08/2024 7:41 AM EDT) Haptoglobin <30(L) 44 - 215 mg/dL 10/08/2024 8:53 AM EDT [facility] Serum 10/08/2024 7:41 AM EDT 10/08/2024 7:51 AM EDT Eileen Schroeder MD, PhD LAB BLOOD ORDERABLES Final Result [facility] [address] [place] [address], [facility] * (ABNORMAL) CBC - Post Transfusion (10/08/2024 7:41 AM EDT) WBC 3.7(L) 3.8 - 10.8 10E3/uL 10/08/2024 8:34 AM EDT [facility] RBC 1.94(L) 4.20 - 5.80 10E6/uL 10/08/2024 8:34 AM EDT [facility] Hemoglobin 7.1(L) 13.2 - 17.1 g/dL 10/08/2024 8:34 AM EDT [facility] Hematocrit 20.0(L) 38.5 - 50.0 % 10/08/2024 8:34 AM EDT [facility] MCV 103.1(H) 80.0 - 100.0 fL 10/08/2024 8:34 AM EDT [facility] MCH 36.5(H) 27.0 - 33.0 pg 10/08/2024 8:34 AM EDT [facility] MCHC 35.4 32.0 - 36.0 g/dL 10/08/2024 8:34 AM EDT [facility] RDW 17.2(H) 11.0 - 15.0 % 10/08/2024 8:34 AM EDT [facility] Platelets 37(L) 140 - 400 10E3/uL 10/08/2024 8:34 AM EDT [facility] Comment: Specimen checked for clots. None detected. Slide Reviewed for PLT Clumps. None Seen. _Platelet Morphology Normal _Platelets Appear Decreased MPV 8.7 7.5 - 11.5 fL 10/08/2024 8:34 AM EDT [facility] Whole Blood 10/08/2024 7:41 AM EDT 10/08/2024 7:52 AM EDT Narrative [facility] - 10/08/2024 8:34 AM EDT Post-transfusion Eileen Schroeder MD, PhD LAB BLOOD ORDERABLES Final Result [facility] [address] * Antibody Screen (10/08/2024 7:41 AM EDT) Antibody Screen Negative 10/08/2024 8:26 AM EDT [facility] Blood 10/08/2024 7:41 AM EDT 10/08/2024 7:57 AM EDT Narrative [facility] - 10/08/2024 8:32 AM EDT Testing performed by [facility] Transfusion Service Eileen Schroeder MD, PhD BLOOD BANK TEST ORDER PAL Final Result Performing Organization Address City/[facility]/ZIP Co de Phone Number [facility] [address] [facility] [place]. [address] * ABO/Rh (10/08/2024 7:41 AM EDT) ABO Grouping O 10/08/2024 8:14 AM EDT [facility] Rh Type Positive 10/08/2024 8:14 AM EDT [facility] Blood 10/08/2024 7:41 AM EDT 10/08/2024 7:57 AM EDT Eileen Schroeder MD, PhD BLOOD BANK TEST ORDER PAL Final Result [facility] [address] * (ABNORMAL) Lactate dehydrogenase (10/08/2024 5:36 AM EDT) LD 102(L) 110 - 270 U/L 10/08/2024 8:20 AM EDT [facility] Plasma 10/08/2024 5:36 AM EDT 10/08/2024 7:58 AM EDT Angie Blanchard MD LAB BLOOD ORDERABLES Final Res ult Performing Organization Address [facility] Co de Phone Number [facility] [address] [facility]. [address] * (ABNORMAL) Protime-INR (10/08/2024 5:36 AM EDT) Protime 26.9(H) 12.1 - 15.1 seconds 10/08/2024 6:11 AM EDT [facility] INR 2.4(H) 0.9 - 1.1 10/08/2024 6:11 AM EDT [facility] Comment: RECOMMENDED THERAPEUTIC RANGES USING INR : Stable oral anticoagulant therapy: 2.0 - 3.0 Mechanical prosthetic heart valve: 2.5 - 3.5 Recurrent acute myocardial infarction: 2.5 - 3.5 Plasma 10/08/2024 5:36 AM EDT 10/08/2024 5:52 AM EDT Eileen Schroeder MD, PhD LAB BLOOD ORDERABLES Final Result Performing Organization Address [facility] Co de Phone Number [facility] [address] [facility]. [address] * (ABNORMAL) Hepatic Function Panel (10/08/2024 5:36 AM EDT) Total Bilirubin 7.7(H) 0.0 - 1.5 mg/dL 10/08/2024 6:25 AM EDT [facility] Bilirubin, Direct 4.28(H) 0.00 - 0.40 mg/dL 10/08/2024 6:25 AM EDT [facility] AST 34 13 - 39 U/L 10/08/2024 6:25 AM EDT [facility] ALT 16 7 - 52 U/L 10/08/2024 6:25 AM EDT [facility] Alkaline Phosphatase 103 36 - 125 U/L 10/08/2024 6:25 AM EDT [facility] Total Protein 4.7(L) 6.4 - 8.9 g/dL 10/08/2024 6:25 AM EDT [facility] Albumin 3.5 3.5 - 5.7 g/dL 10/08/2024 6:25 AM EDT [facility] Bilirubin, Indirect 3.42(H) 0.00 - 1.10 mg/dL 10/08/2024 6:25 AM EDT [facility] Plasma 10/08/2024 5:36 AM EDT 10/08/2024 5:52 AM EDT us Eileen Schroeder MD, PhD LAB BLOOD ORDERABLES Final Result Performing Organization Address [facility]/ZIP Co de Phone Number [facility] [address] * Magnesium (10/08/2024 5:36 AM EDT) Magnesium 1.9 1.5 - 2.5 mg/dL 10/08/2024 6:25 AM EDT [facility] Plasma 10/08/2024 5:36 AM EDT 10/08/2024 5:52 AM EDT Eileen Schroeder MD, PhD LAB BLOOD ORDERABLES Final Result [facility] [address] * (ABNORMAL) Renal Function Panel w/EGFR (10/08/2024 5:36 AM EDT) Sodium 135 133 - 146 mmol/L 10/08/2024 6:25 AM EDT [facility] Potassium 3.2(L) 3.5 - 5.3 mmol/L 10/08/2024 6:25 AM EDT [facility] Chloride 106 98 - 110 mmol/L 10/08/2024 6:25 AM EDT [facility] CO2 17(L) 21 - 33 mmol/L 10/08/2024 6:25 AM EDT [facility] Anion Gap 12 3 - 16 mmol/L 10/08/2024 6:25 AM EDT [facility] BUN 61(H) 7 - 25 mg/dL 10/08/2024 6:25 AM EDT [facility] Creatinine 3.10(H) 0.60 - 1.30 mg/dL 10/08/2024 6:25 AM EDT [facility] Glucose 106(H) 70 - 100 mg/dL 10/08/2024 6:25 AM EDT [facility] Calcium 9.0 8.6 - 10.3 mg/dL 10/08/2024 6:25 AM EDT [facility] Phosphorus 4.0 2.1 - 4.7 mg/dL 10/08/2024 6:25 AM EDT [facility] Albumin 3.5 3.5 - 5.7 g/dL 10/08/2024 6:25 AM EDT [facility] Osmolality, Calculated 298 278 - 305 mOsm/kg 10/08/2024 6:25 AM EDT [facility] EGFR 25 10/08/2024 6:25 AM EDT [facility] Comment:As of 2021, the estimated [...] BLOOD ORDERABLES Final Result [facility] [address] [place] [address], [facility] * (ABNORMAL) CBC (10/08/2024 5:36 AM EDT) WBC 3.2(L) 3.8 - 10.8 10E3/uL 10/08/2024 6:41 AM EDT [facility] RBC 1.86(L) 4.20 - 5.80 10E6/uL 10/08/2024 6:41 AM EDT [facility] Hemoglobin 6.9(L) 13.2 - 17.1 g/dL 10/08/2024 6:41 AM EDT [facility] Hematocrit 18.9(L) 38.5 - 50.0 % 10/08/2024 6:41 AM EDT [facility] MCV 101.6(H) 80.0 - 100.0 fL 10/08/2024 6:41 AM EDT [facility] MCH 36.9(H) 27.0 - 33.0 pg 10/08/2024 6:41 AM EDT [facility] MCHC 36.3(H) 32.0 - 36.0 g/dL 10/08/2024 6:41 AM EDT [facility] RDW 17.0(H) 11.0 - 15.0 % 10/08/2024 6:41 AM EDT [facility] Platelets 34(L) 140 - 400 10E3/uL 10/08/2024 6:41 AM EDT [facility] Comment: Specimen checked for clots. None detected. Slide Reviewed for PLT Clumps. None Seen. Platelet Estimate Decreased 10/08/2024 6:41 AM EDT [facility] MPV 8.4 7.5 - 11.5 fL 10/08/2024 6:41 AM EDT [facility] Whole Blood 10/08/2024 5:36 AM EDT 10/08/2024 5:53 AM EDT Narrative [facility] - 10/08/2024 6:41 AM EDT Peripheral blood smear was scanned per review criteria approved by the laboratory medical record technician. Eileen Schroeder MD, PhD LAB BLOOD ORDERABLES Final Result [facility] [address] [facility] [place]. [address] * Vancomycin, random (10/08/2024 5:36 AM EDT) Vancomycin Random 16.0 ug/mL 10/08/2024 6:20 AM EDT [facility] Comment:Reference range not established for this test. Plasma 10/08/2024 5:36 AM EDT 10/08/2024 5:52 AM EDT us Jodi FreireD LAB BLOOD ORDERABLES Final Result Performing Organization Address City/[facility]/ZIP Co de Phone Number [facility] [address] [facility]. [address] * Urine Drug Confirmation (10/07/2024 10:50 PM EDT) BARBITURATES NOT PRESENT 10/09/2024 1:33 PM EDT [facility]ALTH [facility] BENZODIAZEPINES PRESENT 1:33 PM EDT [facility]ALTH LAB Nordiazepam 3 ng/mL 10/09/2024 1:33 PM EDT [facility] Temazepam 6 ng/mL 10/09/2024 1:33 PM EDT [facility] CANNABINOIDS NOT PRESENT 10/09/2024 1:33 PM EDT [facility]ALTH [facility] MANAGER UNIVERSAL STIMULANTS NOT PRESENT 1:33 PM EDT [facility] OPIOID ANALGESICS PRESENT 025 1:33 PM EDT [facility]ALTH [facility] Oxycodone 300 ng/mL 10/09/2024 1:33 PM EDT [facility] Oxymorphone 32 ng/mL 10/09/2024 1:33 PM EDT [facility] Tramadol >1000 ng/mL 10/09/2024 1:33 PM EDT [facility] OPIOID ANTAGONISTS NOT PRESENT 10/09 1:33 PM EDT [facility] SEDATIVES/MUSCLE RELAXANTS NOT PRESENT 10/09/2024 1:33 PM EDT [facility] TRICYCLIC ANTIDEPRESSANTS NOT PRESENT 10/09/2024 1:33 PM EDT [facility] Urine 10/07/2024 10:5 0 PM EDT 10/08/2024 3:00 AM EDT Gerri Peterson MD URINE ORDERABLES Final Result Performing Organization Address [facility]/ZIP Co de Phone Number [facility] [address] * Giardia Cryptosporidium Antigens (10/07/2024 10:50 PM EDT) Cryptosporidium Ag Negative Negative 2024 7:59 AM EDT [facility] Giardia Ag Negative Negative 10/08/2024 7:59 AM EDT [facility] Comment: Detection of Giardia and Cryptosporidium antigen is more sensitive and specific than microscopy. Because antigens are shed continuously, repeat testing is rarely warranted. Feces 10/07/2024 10:5 0 PM EDT 10/08/2024 1:53 AM EDT Comment:F Bisi Hernandez DO MICROBIOLOGY - GENERAL ORDERABLE S Final Result Performing Organization Address [facility] Co de Phone Number [facility] [address] [place] [address]. [address] * (ABNORMAL) Urine Drug Screen Reflex to Confirmation (10/07/2024 10:50 PM EDT) Amphetamine, 500 ng/mL Cutoff Negative Negative 10/08/2024 3:00 AM EDT [facility] Barbiturates UR, 300 ng/mL Cutoff Negative Negative 10/08/2024 3:00 AM EDT [facility] Buprenorphine, 5 ng/mL Cutoff Negative Negative 10/08/2024 3:00 AM EDT [facility] Benzodiazepines UR, 300 ng/mL Cutoff Negative Negative 10/08/2024 3:00 AM EDT [facility] [facility] Cocaine UR, 300 ng/mL Cutoff Negative Negative 10/08/2024 3:00 AM EDT [facility] Methadone, UR, 300 ng/mL Cutoff Negative Negative 10/08/2024 3:00 AM EDT [facility] Opiates UR, 300 ng/mL Cutoff Negative Negative 10/08/2024 3:00 AM EDT [facility] Oxycodone, 100 ng/mL Cutoff Presumptive Positive(A) Negative 10/08/2024 3:00 AM EDT [facility] Tricyclic Antidepressants, 300 ng/mL Cutoff Negative Negative 10/08/2024 3:00 AM EDT [facility] Comment:This test has been d eveloped and its performance characteristics determined by [facility] which is certified under [...] Cutoff Negative Negative 10/08/2024 3:00 AM EDT [facility] Comment:This is a screening method only and may be associated with false positive and/or false negative results. Results are not definitive without additional confirmatory testing by mass spectrometry. Fentanyl, 2 ng/mL Cutoff Negative Negative 10/08/2024 3:00 AM EDT [facility] Comment:This test has been d eveloped and its performance characteristics determined by [facility] which is certified under [...] PM EDT 10/08/2024 2:08 AM EDT Narrative [facility] - 10/08/2024 3:00 AM EDT CONFIRMATION TO FOLLOW Gerri Peterson MD URINE ORDERABLES Final Result [facility] [address] [place] [address], [facility] * Comprehensive Drug Screen (10/07/2024 10:50 PM EDT) Creatinine, Ur CANCELED mg/dL 10/08/2024 7:09 AM EDT [facility] Comment:The released value 8 7.30 was canceled by YAQUELIN on 10/08/2024 07:09 BARBITURATES CANCELED [facility] Butalbital CANCELED [facility] Phenobarbital CANCELED [facility] Secobarbital CANCELED [facility] BENZODIAZEPINES CANCELED [facility] Alprazolam CANCELED [facility] Clonazepam CANCELED [facility] Diazepam CANCELED [facility] Alpha-Hydroxyalprazo mcknight CANCELED [facility] Lorazepam CANCELED [facility] Midazolam CANCELED [facility] Nordiazepam [facility]ELED [facility] Oxazepam CANCELED [facility] Temazepam CANCELED [facility] CANNABINOIDS CANCELED [facility] THC-COOH CANCELED [facility] MANAGER UNIVERSAL STIMULANTS CAN[facility]ELED [facility] Cocaine Metabolite(benzoylec gonine) CANCELED [facility] Amphetamine CAN[facility]ELED [facility] Methamphetamine CANCELED [facility] MDA CANCELED [facility] MDEA CANCELED [facility] Phencyclindine (PCP) CANCELED [facility] OPIOID ANALGESICS CANCELED [facility] Heroin Metabolite(6-RAMONA) CANCELED [facility] Codeine CANCELED [facility] Morphine CANCELED [facility] Hydrocodone CANCELED [facility] Hydromorphone CANCELED [facility] Oxycodone CANCELED [facility] Oxymorphone CANCELED [facility] Meperidine CANCELED [facility] Normeperidine CANCELED [facility] Methadone CANCELED [facility] Methadone Metabolite (EDDP) CANCELED [facility] Tramadol CANCELED [facility] Fentanyl CANCELED [facility] Norfentanyl [facility]ELED [facility] Sufentanil CANCELED [facility] OPIOID ANTAGONISTS CANCELED [facility] Buprenorphine CANCELED [facility] Norbuprenorphine CANCELED [facility] Naltrexone CANCELED [facility] Naloxone CANCELED [facility] SEDATIVES/MUSCLE RELAXANTS CANCELED [facility] Carisoprodol CANCELED [facility] Meprobamate [facility] TRICYCLIC ANTIDEPRESSANTS [facility] Amitriptyline [facility] Clomipramine [facility] Desipramine [facility] Doxepin [facility] Imipramine [facility] Nortriptyline [facility] Urine Creatinine CANCELED mg/dL [facility] LAB Nitrite [facility] Glutaraldehyde [facility]ED [facility] pH CANCELED 10/08/2024 7:09 AM EDT [facility] Comment:The released value 5 .6 was canceled by MABLEE on 10/08/2024 07:09 Specific [place] CANCELED 10/09/19 7:09 AM EDT [facility] Comment:The released value 1 .009 was canceled by MABLEE on 10/08/2024 07:09 Bleach CANCELED [facility] Pyridinium Chlorochromate CANCELED [facility] Urine 10/07/2024 10:5 0 PM EDT 10/08/2024 2:07 AM EDT Narrative [facility] - 10/08/2024 7:09 AM EDT See accn [id number] Gerri Peterson MD URINE ORDERABLES Edited Result - Final Performing Organization Address City/State/[facility] Co de Phone Number [facility] [address] * Ova and Parasite Comprehensive w/ Giardia/Crypto (10/07/2024 10:50 PM EDT) O & P Method: Concentration and Trichrome Stain [facility] Results No Amoeba, Ova, Or Parasites Seen. -- O and P examination of additional specimens is recommended only for symptomatic patients, immunosuppressed patients or those with an appropriate travel history. [facility] Feces FECES / Unknown 10/07/2024 1 0:50 PM EDT 10/08/2024 1:53 AM EDT Comment:F Bisi Hernandez DO MICROBIOLOGY - GENERAL ORDERABLE S Final Result Performing Organization Address City/[facility]/ZIP Co de Phone Number [facility] [address] * Enteric Pathogen Panel (10/07/2024 10:50 PM EDT) Campylobacter Group (C. ecoli, C. jejuni, C. trino) Not Detected Not Detected 10/08/2024 4:40 AM EDT [facility] Salmonella species Not Detected Not Detected 10/08/2024 4:40 AM EDT [facility] Shigella species Not Detected Not Detected 10/08/2024 4:40 AM EDT [facility] Vibrio Group (Vibrio cholerae, Vibrio parahaemolyticus) Not Detected Not Detected 10/08/2024 4:40 AM EDT [facility] Yersinia enterocolitica Not Detected Not Detected 10/08/2024 4:40 AM EDT [facility] Shiga toxin 1 Not Detected Not Detected 10/08/2024 4:40 AM EDT [facility] Shiga toxin 2 Not Detected Not Detected 10/08/2024 4:40 AM EDT [facility] Norovirus Not Detected Not Detected 10/08/2024 4:40 AM EDT [facility] Rotavirus Not Detected Not Detected 10/08/2024 4:40 AM EDT [facility] Comment: The Enteric Pathogen Panel [...] ORDERABLE S Final Result Performing Organization Address City/[facility]/ZIP Co de Phone Number [facility] [address] * Hepatitis C Antibody (10/07/2024 6:38 PM EDT) HCV Ab Nonreactive Nonreactive 10/07/2024 7:56 PM EDT [facility] Comment:Health Department no tified in accordance with reportable infectious disease guidelines. Serum 10/07/2024 6:38 PM EDT 10/07/2024 6:52 PM EDT [facility] - 10/07/2024 7:56 PM EDT Antibodies to HCV not detected; does not exclude the possibility of exposure to HCV. Gerri Peterson MD LAB BLOOD ORDERABLES Final Resu lt Performing Organization Address City/[facility]/ZIP Co de Phone Number [facility] [address] [facility]. [address] * Hepatitis B Surface Antibody, Quantitati (10/07/2024 6:38 PM EDT) Hep B S Ab Nonreactive Nonreactive 10/07/2024 8:00 PM EDT [facility] HBSAB NUMBER 7.88 0.00 - 7.99 mIU/mL 10/07/2024 8:00 PM EDT [facility] Serum 10/07/2024 6:38 PM EDT 10/07/2024 6:52 PM EDT [facility] - 10/07/2024 8:00 PM EDT Individual is considered not immune to HBV infection. Gerri Peterson MD LAB BLOOD ORDERABLES Final Resu lt [facility] [address] [facility]. [address] * Hepatitis B surface antigen (10/07/2024 6:38 PM EDT) Hep B Surface Ag Nonreactive Nonreactive 10/07/2024 7:51 PM EDT [facility] Comment:Health Department no tified in accordance with reportable infectious disease guidelines. Serum 10/07/2024 6:38 PM EDT 10/07/2024 6:52 PM EDT [facility] - 10/07/2024 7:51 PM EDT Specimen is considered negative for HBsAg. Result [facility] Gerri Peterson MD LAB BLOOD ORDERABLES Final Resu lt Performing Organization Address City/[facility]/ZIP Co de Phone Number [facility] [address] [facility]. [address] * Hepatitis A Antibody Total (10/07/2024 6:38 PM EDT) Anti-HAV Total (IgG + IgM) Nonreactive 10/07/2024 7:53 PM EDT [facility] Serum 10/07/2024 6:38 PM EDT 10/07/2024 6:52 PM EDT [facility] - 10/07/2024 7:53 PM EDT HAV antibodies not detected Gerri Peterson MD LAB BLOOD ORDERABLES Final Resu lt Performing Organization Address [facility] Co de Phone Number [facility] [address] [facility]. [address] * Hepatitis A IgM (10/07/2024 6:38 PM EDT) Pathologist [facility] Hep A IgM Nonreactive Nonreactive 10/07/2024 7:46 PM EDT [facility] Serum 10/07/2024 6:38 PM EDT 10/07/2024 6:52 PM EDT [facility] - 10/07/2024 7:46 PM EDT IgM anti-HAV not detected. Does not exclude the possibility of exposure to or infection with HAV. Levels of IgM anti-HAV may be below the cut-off in early infection. Result [facility] Gerri Peterson MD LAB BLOOD ORDERABLES Final Resu lt Performing Organization Address [facility]/ZIP Co de Phone Number [facility] [address] [facility]. [address] * (ABNORMAL) Lipid Profile (10/07/2024 6:37 PM EDT) Pathologist [facility] Non-HDL Cholesterol, Calculated See Note 0 - 129 mg/dL 10/07/2024 7:42 PM EDT [facility] Comment: Desirable: < 130 mg/dL Above Desirable: 130-159 mg/dL Borderline High: 160-189 mg/dL High: 190-219 mg/dL Very High: > 219 mg/dL Unable to calculate result either because contributing result(s) are outside of reportable range or are not available. Cholesterol, Total <25 0 - 200 mg/dL 10/07/2024 7:42 PM EDT [facility] Triglycerides 30 10 - 149 mg/dL 10/07/2024 7:42 PM EDT [facility] HDL 4(L) 60 - 92 mg/dL 10/07/2024 7:42 PM EDT [facility] Comment: LIPID PROFILE INTERPRETATION CHOLESTEROL,TOTAL(mg/dL) [...] Cholesterol See Note mg/dL 7:42 PM EDT [facility] Comment:Unable to calculate result either because contributing result(s) are outside of reportable range or are not available. Plasma 10/07/2024 6:37 PM EDT 10/07/2024 7:06 PM EDT Narrative [facility] - 10/07/2024 7:42 PM EDT LDL cholesterol calculated using the Friedewald equation. us Gerri Peterson MD LAB BLOOD ORDERABLES Final Resu lt [facility] [address] [place], [place] [id number] [place] [address] * (ABNORMAL) Alpha 1 Antitrypsin AAT Quant & Mutation (10/07/2024 6:37 PM EDT) A-1 Antitrypsin 99(L) 101 - 187 mg/dL 10/09/2024 4:28 AM EDT [facility] A-1 Antitrypsin Pheno Comment 10/10/2024 4:05 PM EDT [facility] Comment: A1A Phenotype is consistent with a heterozygous phenotype consisting of one M (normal) allele and one allele that cannot be identified at this time. The unknown allele is not consistent with Z (deficient), S (deficient), or F (deficient). MM Phenotype is considered to be normal , producing normal serum levels of xqlfv-5-levijihl inhibitor and not associated with clinical disease. [...] - 10/10/2024 4:08 PM EDT PERFORMED AT: [facility] [id number] TUBE MOLDER FIBERGLASS: Bassam Khalil, PhD PHONE: [phone] PERFORMED AT: [facility] [address] [id number] [employer] M[employer]DER [employer]: Mandy Abdul MD PHONE: [phone] Gerri Peterson MD LAB BLOOD ORDERABLES Final Resu lt [facility] [address] * (ABNORMAL) CMV IgG Antibody (10/07/2024 6:37 PM EDT) CMV IgG Positive(A ) Negative 10/07/2024 8:26 PM EDT [facility] CMV IGG NUM 8.40(H) 0.00 - 0.59 U/mL 10/07/2024 8:26 PM EDT [facility] Serum 10/07/2024 6:37 PM EDT 10/07/2024 6:50 PM EDT Gerri Peterson MD LAB BLOOD ORDERABLES Final Resu lt Performing Organization Address City/[facility]/ZIP Co de Phone Number [facility] [address] [facility]. [address] * HIV-1 and HIV-2 Antibodies w Reflex (10/07/2024 6:37 PM EDT) HIV 1+2 AB/AGN Nonreactive Nonreactive 10/07/2024 7:54 PM EDT [facility] Serum 10/07/2024 6:37 PM EDT 10/07/2024 7:06 PM EDT Narrative [facility] - 10/07/2024 7:54 PM EDT \HIVRNR Gerri Peterson MD LAB BLOOD ORDERABLES Final Resu lt [facility] [address] [facility]. [address] * TSH (Thyroid Stimulating Hormone) (10/07/2024 6:37 PM EDT) TSH 0.81 0.45 - 4.12 uIU/mL 10/07/2024 8:17 PM EDT [facility] Serum 10/07/2024 6:37 PM EDT 10/07/2024 6:50 PM EDT Gerri Peterson MD LAB BLOOD ORDERABLES Final Resu lt Performing Organization Address [facility]/State/[facility] Co de Phone Number [facility] [address] * Katie-Watkins virus early antigen antibody, IgG (10/07/2024 6:37 PM EDT) Pathologist [facility] EBV Early Antigen Ab, IgG <9.0 0.0 - 8.9 U/mL 10/09/2024 2:16 PM EDT [facility] Comment: Negative < 9.0 Equivocal 9.0 - 10.9 Positive >10.9 Serum Frozen 10/07/2024 6:37 PM EDT 10/09/2024 3:07 PM EDT Narrative [facility] - 10/09/2024 3:07 PM EDT PERFORMED AT: [facility] [id number] TUBE M[employer]DER F[employer]ASS: Bassam Khalil, PhD PHONE: [phone] Gerri Peterson MD LAB BLOOD ORDERABLES Final Resu lt Performing Organization Address [facility] de Phone Number [facility] [address] * (ABNORMAL) Varicella zoster antibody, IgG (10/07/2024 6:37 PM EDT) Pathologist [facility] Varicella IgG Positive( A) Negative S/CO 10/07/2024 8:34 PM EDT [facility] Comment:Result indicates the presence of detectable VZV IgG antibodies. A positive result is generally indicative of exposure to the pathogen or administration of specific immunoglobulins, but it is no indication of active infection or stage of disease. This test is not approved for determining vaccine-induced immunity to varicella zoster virus. VZV NUM 6.76(H) 0.00 - 0.99 S/CO 10/07/2024 8:34 PM EDT [facility] Serum 10/07/2024 6:37 PM EDT 10/07/2024 6:50 PM EDT Gerri Peterson MD LAB BLOOD ORDERABLES Final Resu lt Performing Organization Address City/[facility]/ZIP Co de Phone Number [facility] [address] * Toxoplasma gondii antibody, IgG (10/07/2024 6:37 PM EDT) Toxoplasma Gondii IgG <3.0 0.0 - 7.1 IU/mL 10/09/2024 7:53 AM EDT [facility] Comment: Negative <7.2 Equivocal 7.2 - 8.7 Positive >8.7 Serum 10/07/2024 6:37 PM EDT 10/09/2024 8:07 AM EDT Narrative [facility] - 10/09/2024 8:07 AM EDT PERFORMED AT: [facility] [id number] TUBE MOLDER F[employer]ERGLASS: Bassam Khalil, PhD PHONE: [phone] Gerri Peterson MD LAB BLOOD ORDERABLES Final Resu lt Performing Organization Address [facility] Co de Phone Number [facility] [address] * Syphilis Screening (Trepia) (10/07/2024 6:37 PM EDT) Treponema Pallidum Negative Negative 10/07/2024 8:27 PM EDT [facility] Comment: No serological evidence of infection with Treponema pallidum (incubating or early primary syphilis cannot be excluded). Serum 10/07/2024 6:37 PM EDT 10/07/2024 6:50 PM EDT Gerri Peterson MD LAB BLOOD ORDERABLES Final Resu lt Performing Organization Address City/[facility]/ZIP Co de Phone Number [facility] [address] [facility]. [address] * Strongyloides Ab (10/07/2024 6:37 PM EDT) Strongyloides Ab Negative Negative 10/11/19 11:51 AM EDT [facility] Serum 10/07/2024 6:37 PM EDT 10/10/2024 12:07 PM EDT Narrative [facility] - 10/10/2024 12:07 PM EDT PERFORMED AT: [facility] [id number] TUBE MOLDER FIBERGLASS: Mandy Abdul MD PHONE: [phone] us Gerri Peterson MD LAB BLOOD ORDERABLES Final Resu lt [facility] [address] * Phosphatidylethanol Confirmation, B (10/07/2024 6:37 PM EDT) PETH 16:0/18.1 (POPETH) <10 Cutoff: 10 ng/mL 10/10/2024 10:42 AM EDT [facility] Comment: Phosphatidylethanol (PEth) homologues result [...] Cutoff: 10 ng/mL 10/10/2024 10:42 AM EDT [facility] Comment: PEth 16:0/18:2 (PLPEth) Reference ranges are not well established PEth Interpretation Negative. 10/10 10:42 AM EDT [facility] Comment: ADDITIONAL INFORMATION This report is intended for use in clinical monitoring and management of patients. It is not intended for use in employment-related testing. This test was developed and its performance characteristics determined by [facility] in a manner consistent with CLIA requirements. This test has not been cleared or approved by the U.S. Food and Drug Administration. Test Performed by: [facility] [address] [place] [address] Brick Pitcher: Kathy Ortiz Ph.D.; CLIA# [id number] Whole Blood 10/07/2024 6:37 PM EDT 10/10/2024 10:42 AM EDT us Gerri Peterson MD LAB BLOOD ORDERABLES Final Resu lt [facility] [address] [facility] [place] [address], [facility] * (ABNORMAL) MMR(IgG) Panel (Measles, Mumps, Rubella) (10/07/2024 6:37 PM EDT) Mumps IgG Positive 10/07/2024 8:26 PM EDT [facility] MUMPS IGG NUM 77.80(H) 0.0 - 8.9 U/mL 10/07/2024 8:26 PM EDT [facility] Rubella IgG Scr Positive 10/07/2024 8:28 PM EDT [facility] RUB NUM 3.04(H) 0.00 - 0.89 INDEX 10/07/2024 8:28 PM EDT [facility] Rubeola Ab, IgG Positive 10/07/2024 8:26 PM EDT [facility] RUB IGG NUM 192.00(H) 0.00 - 13.40 U/mL 10/07/2024 8:26 PM EDT [facility] Serum 10/07/2024 6:37 PM EDT 10/07/2024 6:50 PM EDT Narrative [facility] - 10/07/2024 8:28 PM EDT [...] MD LAB BLOOD ORDERABLES Final Resu lt [facility] [address] * IgA (10/07/2024 6:37 PM EDT) IgA 227.0 70.0 - 400.0 mg/dL 10/08/2024 11:07 AM EDT [facility] Comment:Please interpret the se findings in conjunction with clinical findings, protein electrophoresis, and immunotyping/immunofixation results. Serum 10/07/2024 6:37 PM EDT 10/07/2024 6:50 PM EDT Gerri Peterson MD LAB BLOOD ORDERABLES Final Resu lt [facility] [address] [facility] * Ethanol, Serum (10/07/2024 6:37 PM EDT) Ethanol <10 0 - 10 mg/dL 10/07/2024 8:36 PM EDT [facility] Serum 10/07/2024 6:37 PM EDT 10/07/2024 6:50 PM EDT Gerri Peterson MD LAB BLOOD ORDERABLES Final Resu lt [facility] [address] [facility] * ABO/Rh - Second (10/07/2024 6:37 PM EDT) ABO Grouping O 10/07/2024 7:16 PM EDT [facility] Rh Type Positive 10/07/2024 7:16 PM EDT [facility] Blood 10/07/2024 6:37 PM EDT 10/07/2024 6:56 PM EDT Narrative [facility] - 10/07/2024 7:18 PM EDT This is not a duplicate order. It is required that ABO be drawn twice for LIVER TRANSPLANT Gerri Peterson MD BLOOD BANK TEST ORDERABLES Denisse l Result [facility] [address] [facility] [place]. [address] * ABO/Rh- Initial (10/07/2024 6:37 PM EDT) ABO Grouping O 10/07/2024 7:59 PM EDT [facility] Rh Type Positive 10/07/2024 7:59 PM EDT [facility] Blood 10/07/2024 6:37 PM EDT 10/07/2024 7:25 PM EDT Gerri Peterson MD BLOOD BANK TEST ORDERABLES Denisse l Result Performing Organization Address [facility] Co de Phone Number [facility] [address] [facility] [place]. [address] * X-ray Mandible minimum 4-views (10/07/2024 [...] from prior ACDF partially visualized. Procedure Note Dinaa Devlin MD - 05/28/2025 EXAM: XR MANDIBLE [...] EXAM: US ABDOMEN COMPLETE EXAM: US DUPLEX [id number] COMPLETE INDICATION: elevated bilirubin COMPARISON: Ultrasound and [...] EXAM: US ABDOMEN COMPLETE EXAM: US DUPLEX [id number] COMPLETE INDICATION: elevated bilirubin COMPARISON: Ultrasound and [...] US ORDERABLES Final Result * US Duplex Xto-Mub-Pnkapad Comp (10/07/2024 3:48 PM EDT) Anatomical Region [...] EXAM: US ABDOMEN COMPLETE EXAM: US DUPLEX [id number] COMPLETE INDICATION: elevated bilirubin COMPARISON: Ultrasound and [...] EXAM: US ABDOMEN COMPLETE EXAM: US DUPLEX [id number] COMPLETE INDICATION: elevated bilirubin COMPARISON: Ultrasound and [...] 4:26 PM EDT us Bisi Hernandez DO [facility] US ORDERABLES Final Result * CARISA Rhythm [...] BLOOD ORDERABLES Final Result [facility] [address] [facility] * (ABNORMAL) Hepatic Function Panel (10/07/2024 6:00 AM EDT) Total Bilirubin 9.7(H) 0.0 - 1.5 mg/dL 10/07/2024 7:10 AM EDT [facility] Bilirubin, Direct 5.21(H) 0.00 - 0.40 mg/dL 10/07/2024 7:10 AM EDT [facility] AST 39 13 - 39 U/L 10/07/2024 7:10 AM EDT [facility] ALT 18 7 - 52 U/L 10/07/2024 7:10 AM EDT [facility] Alkaline Phosphatase 98 36 - 125 U/L 10/07/2024 7:10 AM EDT [facility] [facility] Total Protein 4.8(L) 6.4 - 8.9 g/dL 10/07/2024 7:10 AM EDT [facility] Albumin 3.6 3.5 - 5.7 g/dL 10/07/2024 7:10 AM EDT [facility] Bilirubin, Indirect 4.49(H) 0.00 - 1.10 mg/dL 10/07/2024 7:10 AM EDT [facility] Plasma 10/07/2024 6:00 AM EDT 10/07/2024 6:39 AM EDT Eileen Schroeder MD, PhD LAB BLOOD ORDERABLES Final Result Performing Organization Address [facility] de Phone Number [facility] [address] * Magnesium (10/07/2024 6:00 AM EDT) Pathologist [facility] Magnesium 1.7 1.5 - 2.5 mg/dL 10/07/2024 7:10 AM EDT [facility] Plasma 10/07/2024 6:00 AM EDT 10/07/2024 6:39 AM EDT Eileen Schroeder MD, PhD LAB BLOOD ORDERABLES Final Result Performing Organization Address [facility] Co de Phone Number [facility] [address] * (ABNORMAL) Renal Function Panel w/EGFR (10/07/2024 6:00 AM EDT) Sodium 132(L) 133 - 146 mmol/L 10/07/2024 7:10 AM EDT [facility] Potassium 3.9 3.5 - 5.3 mmol/L 10/07/2024 7:10 AM EDT [facility] Chloride 103 98 - 110 mmol/L 10/07/2024 7:10 AM EDT [facility] CO2 19(L) 21 - 33 mmol/L 10/07/2024 7:10 AM EDT [facility] Anion Gap 10 3 - 16 mmol/L 10/07/2024 7:10 AM EDT [facility] BUN 64(H) 7 - 25 mg/dL 10/07/2024 7:10 AM EDT [facility] Creatinine 3.38(H) 0.60 - 1.30 mg/dL 10/07/2024 7:10 AM EDT [facility] Glucose 111(H) 70 - 100 mg/dL 10/07/2024 7:10 AM EDT [facility] Calcium 9.1 8.6 - 10.3 mg/dL 10/07/2024 7:10 AM EDT [facility] Phosphorus 4.2 2.1 - 4.7 mg/dL 10/07/2024 7:10 AM EDT [facility] Albumin 3.6 3.5 - 5.7 g/dL 10/07/2024 7:10 AM EDT [facility] Osmolality, Calculated 293 278 - 305 mOsm/kg 10/07/2024 7:10 AM EDT [facility] EGFR 22 10/07/2024 7:10 AM EDT [facility] Comment:As of 2021, the estimated [...] M, Olivia DC, Emerita ND, Madelyn CA, Academic Specialist [place], et al. A Unifying Approach for GFR Estimation: Recommendations of the NKF-ASN Task Force on Reassessing the inclusion of Race in Diagnosing Kidney Disease. Am J Kidney Dis. 2020. Plasma 10/07/2024 6:00 AM EDT 10/07/2024 6:39 AM EDT us Eileen Schroeder MD, PhD LAB BLOOD ORDERABLES Final Result [facility] [address] [place] [address], [facility] * (ABNORMAL) CBC (10/07/2024 6:00 AM EDT) WBC 3.3(L) 3.8 - 10.8 10E3/uL 10/07/2024 7:55 AM EDT [facility] RBC 2.06(L) 4.20 - 5.80 10E6/uL 10/07/2024 7:55 AM EDT [facility] Hemoglobin 7.4(L) 13.2 - 17.1 g/dL 10/07/2024 7:55 AM EDT [facility] Hematocrit 21.5(L) 38.5 - 50.0 % 10/07/2024 7:55 AM EDT [facility] MCV 104.1(H) 80.0 - 100.0 fL 10/07/2024 7:55 AM EDT [facility] MCH 35.8(H) 27.0 - 33.0 pg 10/07/2024 7:55 AM EDT [facility] MCHC 34.4 32.0 - 36.0 g/dL 10/07/2024 7:55 AM EDT [facility] RDW 17.5(H) 11.0 - 15.0 % 10/07/2024 7:55 AM EDT [facility] Platelets 35(L) 140 - 400 10E3/uL 10/07/2024 7:55 AM EDT [facility] Comment: Specimen checked for clots. None detected. Slide Reviewed for PLT Clumps. None Seen. _Platelet Morphology Normal _Platelets Appear Decreased Platelet Estimate Decreased 10/07/2024 7:55 AM EDT [facility] MPV 8.0 7.5 - 11.5 fL 10/07/2024 7:55 AM EDT [facility] Whole Blood 10/07/2024 6:00 AM EDT 10/07/2024 6:40 AM EDT Narrative [facility] - 10/07/2024 7:55 AM EDT Peripheral blood smear was scanned per review criteria approved by the laboratory medical record technician. Eileen Schroeder MD, PhD LAB BLOOD ORDERABLES Final Result Performing Organization Address [facility] Co de Phone Number [facility] [address] * AFP Tumor Marker (10/07/2024 6:00 AM EDT) Pathologist [facility] AFP-Tumor Marker 2.0 0.0 - 9.0 ng/mL 10/07/2024 7:11 AM EDT [facility] Serum 10/07/2024 6:00 AM EDT 10/07/2024 6:39 AM EDT [facility] - 10/07/2024 7:11 AM EDT The testing method for AFP is a chemiluminescent immunoassay manufactured by [employer] Concentrations of AFP obtained by different assay methods or kits may vary and cannot be used interchangeably. AFP results cannot be interpreted as absolute evidence of the presence or absence of malignant disease. Shila Rivera MD LAB BLOOD ORDERABLES Final Resul t Performing Organization Address City/[facility]/ZIP Co de Phone Number [facility] [address] [facility]. [address] * Vancomycin, random (10/07/2024 6:00 AM EDT) Pathologist [facility] Vancomycin Random 21.1 ug/mL 10/07/2024 7:08 AM EDT [facility] Comment:Reference range not established for this test. Plasma 10/07/2024 6:0 0 AM EDT 10/07/2024 6:39 AM EDT Kiet Shuder PharmD LAB BLOOD ORDERABLES Final Re sult [facility] [address] * Osmolality (10/06/2024 2:50 PM EDT) Osmolality, Measured 304 278 - 305 mOsm/kg 10/06/2024 3:49 PM EDT [facility] Serum 10/06/2024 2:50 PM EDT 10/06/2024 2:56 PM EDT us Chari Vanegas MD LAB BLOOD ORDERABLES Final Resul t Performing Organization Address City/[facility]/ZIP Co de Phone Number [facility] [address] * CT Head WO contrast (10/06/2024 [...] Ur <15 mmol/L 10/06/2024 1:56 PM EDT [facility] Comment:Reference range not established for this test. Urine 10/06/2024 1:25 PM EDT 10/06/2024 1:32 PM EDT Chari Vanegas MD URINE ORDERABLES Final Result Performing Organization Address [facility] Co de Phone Number [facility] [address] [facility]. [address] * Potassium, urine, random (10/06/2024 1:25 PM EDT) Potassium Urine Random 50.0 mmol/L 10/06/2024 1:56 PM EDT [facility] Comment:Reference range not established for this test. Urine 10/06/2024 1:25 PM EDT 10/06/2024 1:32 PM EDT Chari Vanegas MD URINE ORDERABLES Final Result [facility] [address] * Sodium, urine, random (10/06/2024 1:25 PM EDT) Sodium, Ur <10 mmol/L 10/06/2024 1:56 PM EDT [facility] Comment:Reference range not established for this test. Urine 10/06/2024 1:25 PM EDT 10/06/2024 1:32 PM EDT Chari Vanegas MD URINE ORDERABLES Final Result Performing Organization Address City/[facility] Co de Phone Number [facility] [address] [facility]. [address] * Creatinine, Urine, Random (10/06/2024 1:25 PM EDT) Creatinine, Urine 87.40 mg/dL 10/06/2024 1:56 PM EDT [facility] Comment:Reference range not established for this test. Urine 10/06/2024 1:25 PM EDT 10/06/2024 1:32 PM EDT Chari Vanegas MD URINE ORDERABLES Final Result Performing Organization Address [facility] Co de Phone Number [facility] [address] [facility]. [address] * Osmolality, Urine (10/06/2024 1:25 PM EDT) Osmolality, Ur 386 50 - 1,200 mOsm/kg 10/06/2024 1:55 PM EDT [facility] Urine 10/06/2024 1:25 PM EDT 10/06/2024 1:32 PM EDT us Chari Vanegas MD URINE ORDERABLES Final Result Performing Organization Address [facility] Co de Phone Number [facility] [address] [facility]. [address] * Urine Drug Confirmation (10/06/2024 11:51 AM EDT) BARBITURATES NOT PRESENT 10/09/2024 3:23 PM EDT [facility] Comment:Results were recheck ed. BENZODIAZEPINES PRESENT 3:23 PM EDT [facility] Nordiazepam 3 ng/mL 10/09/2024 3:23 PM EDT [facility] Comment:Results were recheck ed. Temazepam 8 ng/mL 10/09/2024 3:23 PM EDT [facility] Comment:Results were recheck ed. CANNABINOIDS NOT PRESENT 10/09/2024 3:23 PM EDT [facility] MANAGER UNIVERSAL STIMULANTS NOT PRESENT 3:23 PM EDT [facility] OPIOID ANALGESICS PRESENT 025 3:23 PM EDT [facility] Oxycodone 329 ng/mL 10/09/2024 3:23 PM EDT [facility] Oxymorphone 61 ng/mL 10/09/2024 3:23 PM EDT [facility] Tramadol >1000 ng/mL 10/09/2024 3:23 PM EDT [facility] OPIOID ANTAGONISTS NOT PRESENT 10/09 3:23 PM EDT [facility] SEDATIVES/MUSCLE RELAXANTS NOT PRESENT 10/09/2024 3:23 PM EDT [facility] TRICYCLIC ANTIDEPRESSANTS NOT PRESENT 10/09/2024 3:23 PM EDT [facility] Urine 10/06/2024 11:5 1 AM EDT 10/06/2024 1:13 PM EDT Bisi Hernandez DO URINE ORDERABLES Final Result [facility] [address] * (ABNORMAL) Urine Drug Screen Reflex to Confirmation (10/06/2024 11:51 AM EDT) Amphetamine, 500 ng/mL Cutoff Negative Negative 10/06/2024 1:13 PM EDT [facility] Barbiturates UR, 300 ng/mL Cutoff Negative Negative 10/06/2024 1:13 PM EDT [facility] Buprenorphine, 5 ng/mL Cutoff Negative Negative 10/06/2024 1:13 PM EDT [facility] Benzodiazepines UR, 300 ng/mL Cutoff Negative Negative 10/06/2024 1:13 PM EDT [facility] Cocaine UR, 300 ng/mL Cutoff Negative Negative 10/06/2024 1:13 PM EDT [facility] Methadone, UR, 300 ng/mL Cutoff Negative Negative 10/06/2024 1:13 PM EDT [facility] Opiates UR, 300 ng/mL Cutoff Negative Negative 10/06/2024 1:13 PM EDT [facility] Oxycodone, 100 ng/mL Cutoff Presumptive Positive(A) Negative 10/06/2024 1:13 PM EDT [facility] Tricyclic Antidepressants, 300 ng/mL Cutoff Negative Negative 10/06/2024 1:13 PM EDT [facility] Comment:This test has been d eveloped and its performance characteristics determined by [facility] which is certified under [...] Cutoff Negative Negative 10/06/2024 1:13 PM EDT [facility] Comment:This is a screening method only and may be associated with false positive and/or false negative results. Results are not definitive without additional confirmatory testing by mass spectrometry. Fentanyl, 2 ng/mL Cutoff Negative Negative 10/06/2024 1:13 PM EDT [facility] Comment:This test has been d eveloped and its performance characteristics determined by [facility] which is certified under [...] AM EDT 10/06/2024 11:58 AM EDT Narrative [facility] - 10/06/2024 1:13 PM EDT CONFIRMATION TO FOLLOW Bisi Hernandezella DO URINE ORDERABLES Final Result Performing Organization Address [facility] de Phone Number [facility] [address] * Chloride, urine, random (10/06/2024 11:51 AM EDT) Chloride, Ur <15 mmol/L 10/06/2024 1:13 PM EDT [facility] Comment:Reference range not established for this test. Urine 10/06/2024 11:5 1 AM EDT 10/06/2024 11:57 AM EDT Bisi Hernandez DO URINE ORDERABLES Final Result Performing Organization Address [facility] de Phone Number [facility] [address] * Potassium, urine, random (10/06/2024 11:51 AM EDT) Potassium Urine Random 49.0 mmol/L 10/06/2024 1:13 PM EDT [facility] Comment:Reference range not established for this test. Urine 10/06/2024 11:5 1 AM EDT 10/06/2024 11:57 AM EDT Bisi Hernandez DO URINE ORDERABLES Final Result Performing Organization Address [facility] de Phone Number [facility] [address] * Sodium, urine, random (10/06/2024 11:51 AM EDT) Sodium, Ur <10 mmol/L 10/06/2024 1:13 PM EDT [facility] Comment:Reference range not established for this test. Urine 10/06/2024 11:5 1 AM EDT 10/06/2024 11:57 AM EDT us Bisi Akella DO URINE ORDERABLES Final Result [facility] [address] [facility] [place] [address], [facility] * Urinalysis w/Rfl to Microscopic (10/06/2024 11:51 AM EDT) Color, UA Yellow Yellow,Straw 10/06/2024 12:25 PM EDT [facility] Clarity, UA Clear Clear 10/06/2024 12:25 PM EDT [facility] Specific [place], UA 1.014 1.005 - 1.035 10/06/2024 12:25 PM EDT [facility] pH, UA 6.0 5.0 - 8.0 10/06/2024 12:25 PM EDT [facility] Protein, UA Negative Negative mg/dL 10/06/2024 12:25 PM EDT [facility] Glucose, UA Negative Negative mg/dL 10/06/2024 12:25 PM EDT [facility] Ketones, UA Negative Negative mg/dL 10/06/2024 12:25 PM EDT [facility] Bilirubin, UA Negative Negative 10/06/2024 12:25 PM EDT [facility] Blood, UA Negative Negative 10/06/2024 12:25 PM EDT [facility] Nitrite, UA Negative Negative 10/06/2024 12:25 PM EDT [facility] Urobilinogen, UA <2.0 0.2 - 1.9 mg/dL 10/06/2024 12:25 PM EDT [facility] Leukocyte Esterase, UA Negative Negative 10/06/2024 12:25 PM EDT [facility] Urine 10/06/2024 11:5 1 AM EDT 10/06/2024 11:57 AM EDT Narrative [facility] - 10/06/2024 12:25 PM EDT Microscopic testing is not performed when the dipstick is negative for blood, leukocyte, protein and nitrite. us Bisi Hernandez DO URINE ORDERABLES Final Result [facility] [address] [address], [facility] * Lactic Acid, STAT (10/06/2024 7:38 AM EDT) Lactate 0.9 0.5 - 2.2 mmol/L 10/06/2024 8:05 AM EDT [facility] Plasma 10/06/2024 7:38 AM EDT 10/06/2024 7:42 AM EDT us Chari Vanegas MD LAB BLOOD ORDERABLES Final Resul t [facility] [address] [place], [place] [address] * (ABNORMAL) CBC, STAT (10/06/2024 7:37 AM EDT) WBC 5.6 3.8 - 10.8 10E3/uL 10/06/2024 8:22 AM EDT [facility] RBC 2.50(L) 4.20 - 5.80 10E6/uL 10/06/2024 8:22 AM EDT [facility] Hemoglobin 9.0(L) 13.2 - 17.1 g/dL 10/06/2024 8:22 AM EDT [facility] Hematocrit 25.3(L) 38.5 - 50.0 % 10/06/2024 8:22 AM EDT [facility] MCV 101.2(H) 80.0 - 100.0 fL 10/06/2024 8:22 AM EDT [facility] MCH 36.0(H) 27.0 - 33.0 pg 10/06/2024 8:22 AM EDT [facility] MCHC 35.6 32.0 - 36.0 g/dL 10/06/2024 8:22 AM EDT [facility] RDW 17.7(H) 11.0 - 15.0 % 10/06/2024 8:22 AM EDT [facility] Platelets 52(L) 140 - 400 10E3/uL 10/06/2024 8:22 AM EDT [facility] Comment: Specimen checked for clots. None detected. Slide Reviewed for PLT Clumps. None Seen. MPV 8.2 7.5 - 11.5 fL 10/06/2024 8:22 AM EDT [facility] Whole Blood 10/06/2024 7:37 AM EDT 10/06/2024 7:43 AM EDT us Chari Vanegas MD LAB BLOOD ORDERABLES Final Resul t [facility] [address] [place] [address], [facility] * (ABNORMAL) Comprehensive Metabolic Panel (10/06/2024 7:37 AM EDT) Sodium 129(L) 133 - 146 mmol/L 10/06/2024 8:16 AM EDT [facility] Potassium 4.4 3.5 - 5.3 mmol/L 10/06/2024 8:16 AM EDT [facility] Chloride 100 98 - 110 mmol/L 10/06/2024 8:16 AM EDT [facility] CO2 18(L) 21 - 33 mmol/L 10/06/2024 8:16 AM EDT [facility] Anion Gap 11 3 - 16 mmol/L 10/06/2024 8:16 AM EDT [facility] BUN 62(H) 7 - 25 mg/dL 10/06/2024 8:16 AM EDT [facility] Creatinine 3.40(H) 0.60 - 1.30 mg/dL 10/06/2024 8:16 AM EDT [facility] Glucose 98 70 - 100 mg/dL 10/06/2024 8:16 AM EDT [facility] Calcium 9.5 8.6 - 10.3 mg/dL 10/06/2024 8:16 AM EDT [facility] Total Bilirubin 14.3(H) 0.0 - 1.5 mg/dL 10/06/2024 8:16 AM EDT [facility] AST 57(H) 13 - 39 U/L 10/06/2024 8:16 AM EDT [facility] ALT 29 7 - 52 U/L 10/06/2024 8:16 AM EDT [facility] Alkaline Phosphatase 158(H) 36 - 125 U/L 10/06/2024 8:16 AM EDT [facility] Total Protein 5.6(L) 6.4 - 8.9 g/dL 10/06/2024 8:16 AM EDT [facility] Albumin 3.6 3.5 - 5.7 g/dL 10/06/2024 8:16 AM EDT [facility] Osmolality, Calculated 286 278 - 305 mOsm/kg 10/06/2024 8:16 AM EDT [facility] EGFR 22 10/06/2024 8:16 AM EDT [facility] Comment:As of 2021, the estimated [...] ORDERABLES Final Resul t [facility] [address] [place] [address], [facility] * (ABNORMAL) Venous Blood Gas, Line/Syringe, STAT (10/06/2024 7:37 AM EDT) PH-Line Draw 7.27(L) 7.32 - 7.42 10/06/2024 7:46 AM EDT [facility] PCO2-Line Draw 36(L) 41 - 51 mm Hg 10/06/2024 7:46 AM EDT [facility] PO2-Line Draw 44(H) 25 - 40 mm Hg 10/06/2024 7:46 AM EDT [facility] HCO3-Line Draw 17(L) 24 - 28 mmol/L 10/06/2024 7:46 AM EDT [facility] CO2 Content-Line Draw 18(L) 25 - 29 mmol/L 10/06/2024 7:46 AM EDT [facility] Base Excess-Line Draw -9.6(L) -2.0 - 3.0 mmol/L 10/06/2024 7:46 AM EDT [facility] %HBO2-Line Draw 69.8 40.0 - 70.0 % 10/06/2024 7:46 AM EDT [facility] Carboxyhgb-Ludivina e Draw 0.7 % 10/06/2024 7:46 AM EDT [facility] Comment: CARBOXYHEMOGLOBIN (CO) REFERENCE RANGES: Non-Smokers: <2 % Smokers: <8 % TOXIC: >20 % Methemoglobin- Line Draw 0.3 0.0 - 1.5 % 10/06/2024 7:46 AM EDT [facility] Reduced Hemoglobin-Ludivina e Draw 29.2(H) 0.0 - 5.0 % 10/06/2024 7:46 AM EDT [facility] Venous, Line Draw 10/06/2024 7:37 AM EDT 10/06/2024 7:43 AM EDT us Chari Vanegas MD LAB BLOOD ORDERABLES Final Resul t Performing Organization Address City/State/[facility] Co de Phone Number [facility] [address] [id number], [facility] * (ABNORMAL) Venous Blood Gas, Line/Syringe, STAT (10/06/2024 4:03 AM EDT) PH-Line Draw 7.21(L) 7.32 - 7.42 10/06/2024 4:16 AM EDT [facility] PCO2-Line Draw 41 41 - 51 mm Hg 10/06/2024 4:16 AM EDT [facility] PO2-Line Draw 32 25 - 40 mm Hg 10/06/2024 4:16 AM EDT [facility] HCO3-Line Draw 16(L) 24 - 28 mmol/L 10/06/2024 4:16 AM EDT [facility] CO2 Content-Line Draw 18(L) 25 - 29 mmol/L 10/06/2024 4:16 AM EDT [facility] Base Excess-Line Draw -10.8(L) -2.0 - 3.0 mmol/L 10/06/2024 4:16 AM EDT [facility] %HBO2-Line Draw 47.5 40.0 - 70.0 % 10/06/2024 4:16 AM EDT [facility] Carboxyhgb-Ludivina e Draw 2.0 % 10/06/2024 4:16 AM EDT [facility] Comment: CARBOXYHEMOGLOBIN (CO) REFERENCE RANGES: Non-Smokers: <2 % Smokers: <8 % TOXIC: >20 % Methemoglobin- Line Draw 0.7 0.0 - 1.5 % 10/06/2024 4:16 AM EDT [facility] Reduced Hemoglobin-Ludivina e Draw 49.8(H) 0.0 - 5.0 % 10/06/2024 4:16 AM EDT [facility] Venous, Line Draw 10/06/2024 4:03 AM EDT 10/06/2024 4:12 AM EDT [employer] LAB BLOOD ORDERABLES Final Resul t Performing Organization Address City/[facility] Co de Phone Number [facility] [address] * (ABNORMAL) Protime-INR (10/06/2024 4:01 AM EDT) Protime 21.3(H) 12.1 - 15.1 seconds 10/06/2024 4:40 AM EDT [facility] INR 1.8(H) 0.9 - 1.1 10/06/2024 4:40 AM EDT [facility] Comment: RECOMMENDED THERAPEUTIC RANGES USING INR : Stable oral anticoagulant therapy: 2.0 - 3.0 Mechanical prosthetic heart valve: 2.5 - 3.5 Recurrent acute myocardial infarction: 2.5 - 3.5 Plasma 10/06/2024 4:01 AM EDT 10/06/2024 4:11 AM EDT Szl DO LAB BLOOD ORDERABLES Final Resul t [facility] [address] * (ABNORMAL) Hepatic Function Panel, AM (10/06/2024 4:01 AM EDT) Total Bilirubin 14.7(H) 0.0 - 1.5 mg/dL 10/06/2024 4:57 AM EDT [facility] Bilirubin, Direct 7.08(H) 0.00 - 0.40 mg/dL 10/06/2024 4:57 AM EDT [facility] AST 60(H) 13 - 39 U/L 10/06/2024 4:57 AM EDT [facility] ALT 31 7 - 52 U/L 10/06/2024 4:57 AM EDT [facility] Alkaline Phosphatase 162(H) 36 - 125 U/L 10/06/2024 4:57 AM EDT [facility] Total Protein 5.3(L) 6.4 - 8.9 g/dL 10/06/2024 4:57 AM EDT [facility] Albumin 3.4(L) 3.5 - 5.7 g/dL 10/06/2024 4:57 AM EDT [facility] Bilirubin, Indirect 7.62(H) 0.00 - 1.10 mg/dL 10/06/2024 4:57 AM EDT [facility] Plasma 10/06/2024 4:01 AM EDT 10/06/2024 4:22 AM EDT Bisi Hernandez DO LAB BLOOD ORDERABLES Final Resul t [facility] [address] * Magnesium (10/06/2024 4:01 AM EDT) Magnesium 1.8 1.5 - 2.5 mg/dL 10/06/2024 4:57 AM EDT [facility] Plasma 10/06/2024 4:01 AM EDT 10/06/2024 4:22 AM EDT us Bisi Hernandez DO LAB BLOOD ORDERABLES Final Resul t [facility] [address] [place] [address], [facility] * (ABNORMAL) Renal Function Panel w/EGFR (10/06/2024 4:01 AM EDT) Sodium 129(L) 133 - 146 mmol/L 10/06/2024 4:57 AM EDT [facility] Potassium 4.7 3.5 - 5.3 mmol/L 10/06/2024 4:57 AM EDT [facility] Chloride 100 98 - 110 mmol/L 10/06/2024 4:57 AM EDT [facility] CO2 16(L) 21 - 33 mmol/L 10/06/2024 4:57 AM EDT [facility] Anion Gap 13 3 - 16 mmol/L 10/06/2024 4:57 AM EDT [facility] BUN 61(H) 7 - 25 mg/dL 10/06/2024 4:57 AM EDT [facility] Creatinine 3.49(H) 0.60 - 1.30 mg/dL 10/06/2024 4:57 AM EDT [facility] Glucose 104(H) 70 - 100 mg/dL 10/06/2024 4:57 AM EDT [facility] Calcium 9.2 8.6 - 10.3 mg/dL 10/06/2024 4:57 AM EDT [facility] Phosphorus 5.3(H) 2.1 - 4.7 mg/dL 10/06/2024 4:57 AM EDT [facility] Albumin 3.4(L) 3.5 - 5.7 g/dL 10/06/2024 4:57 AM EDT [facility] Osmolality, Calculated 286 278 - 305 mOsm/kg 10/06/2024 4:57 AM EDT [facility] EGFR 22 10/06/2024 4:57 AM EDT [facility] Comment:As of 2021, the estimated [...] DO LAB BLOOD ORDERABLES Final Resul t [facility] [address] [place] [address], [facility] * (ABNORMAL) CBC (10/06/2024 4:01 AM EDT) WBC 7.6 3.8 - 10.8 10E3/uL 10/06/2024 5:16 AM EDT [facility] RBC 2.77(L) 4.20 - 5.80 10E6/uL 10/06/2024 5:16 AM EDT [facility] Hemoglobin 10.1(L) 13.2 - 17.1 g/dL 10/06/2024 5:16 AM EDT [facility] Hematocrit 28.4(L) 38.5 - 50.0 % 10/06/2024 5:16 AM EDT [facility] MCV 102.4(H) 80.0 - 100.0 fL 10/06/2024 5:16 AM EDT [facility] MCH 36.4(H) 27.0 - 33.0 pg 10/06/2024 5:16 AM EDT [facility] MCHC 35.5 32.0 - 36.0 g/dL 10/06/2024 5:16 AM EDT [facility] RDW 18.0(H) 11.0 - 15.0 % 10/06/2024 5:16 AM EDT [facility] Platelets 53(L) 140 - 400 10E3/uL 10/06/2024 5:16 AM EDT [facility] Comment:Specimen checked for clots. None detected. MPV 8.4 7.5 - 11.5 fL 10/06/2024 5:16 AM EDT [facility] Whole Blood 10/06/2024 4:01 AM EDT 10/06/2024 4:11 AM EDT [facility] B[facility]LES Final Resul t Performing Organization Address [facility] de Phone Number [facility] [address] [place] [address]. [address] * Hepatitis C Antibody (10/06/2024 4:01 AM EDT) HCV Ab Nonreactive Nonreactive 10/06/2024 5:12 AM EDT [facility] Comment:Health Department no tified in accordance with reportable infectious disease guidelines. Serum 10/06/2024 4:01 AM EDT 10/06/2024 4:11 AM EDT Narrative [facility] - 10/06/2024 5:12 AM EDT Antibodies to HCV not detected; does not exclude the possibility of exposure to HCV. [facility] BLOOD ORDERABLES Final Resul t Performing Organization Address [facility] de Phone Number [facility] [address] [place] [address]. [address] * (ABNORMAL) Hepatitis B Surface Antibody, Quantitati (10/06/2024 4:01 AM EDT) Hep B S Ab Reactive( A) Nonreactive 10/06/2024 5:16 AM EDT [facility] HBSAB NUMBER 11.50(H) 0.00 - 7.99 mIU/mL 10/06/2024 5:16 AM EDT [facility] Serum 10/06/2024 4:01 AM EDT 10/06/2024 4:11 AM EDT [facility] - 10/06/2024 5:16 AM EDT Individual is considered immune to HBV infection. [employer] LAB BLOOD ORDERABLES Final Resul t Performing Organization Address City/[facility] Co de Phone Number [facility] [address] [place] [address]. [address] * Hepatitis B surface antigen (10/06/2024 4:01 AM EDT) Hep B Surface Ag Nonreactive Nonreactive 10/06/2024 5:07 AM EDT [facility] Comment:Health Department no tified in accordance with reportable infectious disease guidelines. Serum 10/06/2024 4:01 AM EDT 10/06/2024 4:11 AM EDT [facility] - 10/06/2024 5:07 AM EDT Specimen is considered negative for HBsAg. [employer] LAB BLOOD ORDERABLES Final Resul t Performing Organization Address [facility] Co de Phone Number [facility] [address] [place] [address]. [address] * Hepatitis A Antibody Total (10/06/2024 4:01 AM EDT) Anti-HAV Total (IgG + IgM) Nonreactive 10/06/2024 5:08 AM EDT [facility] Serum 10/06/2024 4:01 AM EDT 10/06/2024 4:11 AM EDT [facility] - 10/06/2024 5:08 AM EDT HAV antibodies not detected [employer] LAB BLOOD ORDERABLES Final Resul t [facility] [address] [facility]. [address] * Hepatitis A IgM (10/06/2024 4:01 AM EDT) Hep A IgM Nonreactive Nonreactive 10/06/2024 5:02 AM EDT [facility] Serum 10/06/2024 4:01 AM EDT 10/06/2024 4:11 AM EDT Narrative [facility] - 10/06/2024 5:02 AM EDT IgM anti-HAV not detected. Does not exclude the possibility of exposure to or infection with HAV. Levels of IgM anti-HAV may be below the cut-off in early infection. [employer] LAB BLOOD ORDERABLES Final Resul t Performing Organization Address City/[facility]/ZIP Co de Phone Number [facility] [address] * (ABNORMAL) Salicylate Level (10/06/2024 4:01 AM EDT) Salicylate Lvl <3(L) 10 - 30 mg/dL 10/06/2024 4:58 AM EDT [facility] Serum 10/06/2024 4:01 AM EDT 10/06/2024 4:22 AM EDT [employer] LAB BLOOD ORDERABLES Final Resul t Performing Organization Address [facility] Co de Phone Number [facility] [address] * AFP Tumor Marker (10/06/2024 4:01 AM EDT) AFP-Tumor Marker 2.6 0.0 - 9.0 ng/mL 10/06/2024 4:55 AM EDT [facility] Serum 10/06/2024 4:01 AM EDT 10/06/2024 4:22 AM EDT [facility] - 10/06/2024 4:55 AM EDT The testing method for AFP is a chemiluminescent immunoassay manufactured by [employer] Concentrations of AFP obtained by different assay methods or kits may vary and cannot be used interchangeably. AFP results cannot be interpreted as absolute evidence of the presence or absence of malignant disease. [employer] LAB BLOOD ORDERABLES Final Resul t Performing Organization Address [facility] Co de Phone Number [facility] [address] * Upper Respiratory Viral/Bacterial Panel-FUNERAL SERVICE APPRENTICE Only (10/06/2024 3:12 AM EDT) [facility] Adenovirus Not Detected Not Detected 10/06/2024 11:38 PM EDT [facility] Coronavirus (229E,HKU1,NL63,OC 43) Not Detected Not Detected 10/06/2024 11:38 PM EDT [facility] SARS-CoV-2 Not Detected Not Detected 10/06/2024 11:38 PM EDT [facility] Human Metapneumovirus Not Detected Not Detected 10/06/2024 11:38 PM EDT [facility] Human Rhinovirus/Enterov irus Not Detected Not Detected 10/06/2024 11:38 PM EDT [facility] Influenza A Not Detected Not Detected 10/06/2024 11:38 PM EDT [facility] Influenza A H1 Not Detected Not Detected 10/06/2024 11:38 PM EDT [facility] Influenza A/H1-2009 Not Detected Not Detected 10/06/2024 11:38 PM EDT [facility] Influenza A H3 Not Detected Not Detected 10/06/2024 11:38 PM EDT [facility] Influenza B Not Detected Not Detected 10/06/2024 11:38 PM EDT [facility] Parainfluenza 1 Not Detected Not Detected 10/06/2024 11:38 PM EDT [facility] Parainfluenza 2 Not Detected Not Detected 10/06/2024 11:38 PM EDT [facility] Parainfluenza 3 Not Detected Not Detected 10/06/2024 11:38 PM EDT [facility] Parainfluenza 4 Not Detected Not Detected 10/06/2024 11:38 PM EDT [facility] Resp. Syncycial Virus A Not Detected Not Detected 10/06/2024 11:38 PM EDT [facility] Resp. Syncycial Virus B Not Detected Not Detected 10/06/2024 11:38 PM EDT [facility] Chlamydia pneumoniae Not Detected Not Detected 10/06/2024 11:38 PM EDT [facility] Mycoplasma pneumoniae Not Detected Not Detected 10/06/2024 11:38 PM EDT [facility] Comment: The Respiratory Viral-Bacterial Panel [...] Test results have been sent to the [facility] in accordance with state requirements. For a fact sheet for healthcare providers, see https://www.fda.gov/media/592921/download. For a fact sheet for patients, see https://www.fda.gov/media/622723/download. Nasopharyngeal Swab NASOPHARYNGEAL SWAB / Unknown 10/06/2024 3:12 AM EDT 10/06/2024 5:41 PM EDT Comment:FUNERAL SERVICE APPRENTICE Bisi Hernandez DO BODY FLUIDS AND STOOLS ORDERABLE S Final Result Performing Organization Address City/State/[facility] Co de Phone Number [facility] [address] [id number] * X-ray Portable Chest (10/06/2024 1:16 AM [...] 10/06/2024 2:33 AM EDT Bisi Hernandez DO [facility] DIAGNOSTIC IMAGING ORDERABLE S Final Result * Phosphatidylethanol Confirmation, B (10/06/2024 1:04 AM EDT) PETH 16:0/18.1 (POPETH) <10 Cutoff: 10 ng/mL 10/10/2024 3:11 AM EDT [facility] Comment: Phosphatidylethanol (PEth) homologues result [...] developed and its performance characteristics determined by [facility] in a manner consistent with CLIA requirements. This test has not been cleared or approved by the U.S. Food and Drug Administration. Test Performed by: [place] [address] Brick Pitcher: Kathy Ortiz Ph.D.; CLIA# [id number] Whole Blood 10/06/2024 1:04 AM EDT 10/10/2024 3:11 AM EDT Szl LAB BLOOD ORDERABLES Final Resul t Performing Organization Address City/[facility] Co de Phone Number [facility] [address] * (ABNORMAL) Acetaminophen Level (10/06/2024 1:04 AM EDT) Acetaminophen Level <10(L) 10 - 30 ug/mL 10/06/2024 2:08 AM EDT [facility] Serum 10/06/2024 1:04 AM EDT 10/06/2024 1:30 AM EDT Szl LAB BLOOD ORDERABLES Final Resul t Performing Organization Address [facility] Co de Phone Number [facility] [address] * Ethanol, Serum (10/06/2024 1:04 AM EDT) Ethanol <10 0 - 10 mg/dL 10/06/2024 2:08 AM EDT [facility] Serum 10/06/2024 1:04 AM EDT 10/06/2024 1:30 AM EDT Bisi [employer] maría DOZIER LAB BLOOD ORDERABLES Final Resul t [facility] [address] [facility] [place]. [address] * #2 Blood culture-Peripheral site 2 (10/06/2024 1:04 AM EDT) Culture Result No Growth After 5 Days [facility] Blood BLOOD SPECIMEN / Unknown 10/06/2024 1:04 AM EDT 10/06/2024 4:57 AM EDT Narrative [facility] - 10/11/2024 5:05 AM EDT Suboptimal volume of blood received. Interpret results with caution. Bisi Mary DOZIER MICROBIOLOGY - GENERAL ORDERABLE S Final Result Performing Organization Address City/[facility]/ZIP Co de Phone Number [facility] [address] [facility]. [address] * #1 Blood culture-Peripheral site 1 (10/06/2024 1:04 AM EDT) Culture Result No Growth After 5 Days [facility] Blood BLOOD SPECIMEN / Unknown 10/06/2024 1:04 AM EDT 10/06/2024 4:57 AM EDT [facility] - 10/11/2024 5:01 AM EDT Suboptimal volume of blood received. Interpret results with caution. Bisi Hernandez DO MICROBIOLOGY - GENERAL ORDERABLE S Final Result Performing Organization Address City/[facility]/ZIP Co de Phone Number [facility] [address] * Ammonia (10/06/2024 1:04 AM EDT) Ammonia 77 27 - 90 ug/dL 10/06/2024 2:00 AM EDT [facility] Plasma 10/06/2024 1:04 AM EDT 10/06/2024 1:30 AM EDT Szl DO LAB BLOOD ORDERABLES Final Resul t Performing Organization Address City/[facility] Co de Phone Number [facility] [address] [facility]. [address] * Thyroid Function Mellette (10/06/2024 1:04 AM EDT) TSH 0.84 0.45 - 4.12 uIU/mL 10/06/2024 2:20 AM EDT [facility] Serum 10/06/2024 1:04 AM EDT 10/06/2024 1:39 AM EDT [employer] LAB BLOOD ORDERABLES Final Resul t Performing Organization Address [facility] Phone Number [facility] [address] [facility]. [address] * (ABNORMAL) Protime-INR (10/06/2024 1:04 AM EDT) Protime 22.8(H) 12.1 - 15.1 seconds 10/06/2024 1:48 AM EDT [facility] INR 1.9(H) 0.9 - 1.1 10/06/2024 1:48 AM EDT [facility] Comment: RECOMMENDED THERAPEUTIC RANGES USING INR : Stable oral anticoagulant therapy: 2.0 - 3.0 Mechanical prosthetic heart valve: 2.5 - 3.5 Recurrent acute myocardial infarction: 2.5 - 3.5 Plasma 10/06/2024 1:04 AM EDT 10/06/2024 1:30 AM EDT Szl DO LAB BLOOD ORDERABLES Final Resul t Performing Organization Address [facility]/ZIP Co de Phone Number [facility] [address] * Lactic Acid, STAT (10/06/2024 1:04 AM EDT) Lactate 1.2 0.5 - 2.2 mmol/L 10/06/2024 1:59 AM EDT [facility] Plasma 10/06/2024 1:04 AM EDT 10/06/2024 1:30 AM EDT us Bisi Mary DOZIER LAB BLOOD ORDERABLES Final Resul t [facility] [address] [place] * (ABNORMAL) CBC, STAT (10/06/2024 1:04 AM EDT) WBC 7.9 3.8 - 10.8 10E3/uL 10/06/2024 2:36 AM EDT [facility] RBC 2.76(L) 4.20 - 5.80 10E6/uL 10/06/2024 2:36 AM EDT [facility] Hemoglobin 9.9(L) 13.2 - 17.1 g/dL 10/06/2024 2:36 AM EDT [facility] Hematocrit 28.0(L) 38.5 - 50.0 % 10/06/2024 2:36 AM EDT [facility] MCV 101.5(H) 80.0 - 100.0 fL 10/06/2024 2:36 AM EDT [facility] MCH 35.7(H) 27.0 - 33.0 pg 10/06/2024 2:36 AM EDT [facility] MCHC 35.2 32.0 - 36.0 g/dL 10/06/2024 2:36 AM EDT [facility] RDW 17.9(H) 11.0 - 15.0 % 10/06/2024 2:36 AM EDT [facility] Platelets 58(L) 140 - 400 10E3/uL 10/06/2024 2:36 AM EDT [facility] Comment: Specimen checked for clots. None detected. Slide Reviewed for PLT Clumps. None Seen. MPV 8.2 7.5 - 11.5 fL 10/06/2024 2:36 AM EDT [facility] Whole Blood 10/06/2024 1:04 AM EDT 10/06/2024 1:31 AM EDT us Bisi Hernandez DO LAB BLOOD ORDERABLES Final Resul t [facility] [address] [place] [address], [facility] * (ABNORMAL) Comprehensive Metabolic Panel (10/06/2024 1:04 AM EDT) Sodium 127(L) 133 - 146 mmol/L 10/06/2024 2:05 AM EDT [facility] Potassium 4.5 3.5 - 5.3 mmol/L 10/06/2024 2:05 AM EDT [facility] Chloride 99 98 - 110 mmol/L 10/06/2024 2:05 AM EDT [facility] CO2 18(L) 21 - 33 mmol/L 10/06/2024 2:05 AM EDT [facility] Anion Gap 10 3 - 16 mmol/L 10/06/2024 2:05 AM EDT [facility] BUN 59(H) 7 - 25 mg/dL 10/06/2024 2:05 AM EDT [facility] Creatinine 3.54(H) 0.60 - 1.30 mg/dL 10/06/2024 2:05 AM EDT [facility] Glucose 116(H) 70 - 100 mg/dL 10/06/2024 2:05 AM EDT [facility] Calcium 9.0 8.6 - 10.3 mg/dL 10/06/2024 2:05 AM EDT [facility] Total Bilirubin 14.8(H) 0.0 - 1.5 mg/dL 10/06/2024 2:05 AM EDT [facility] AST 61(H) 13 - 39 U/L 10/06/2024 2:05 AM EDT [facility] ALT 33 7 - 52 U/L 10/06/2024 2:05 AM EDT [facility] Alkaline Phosphatase 174(H) 36 - 125 U/L 10/06/2024 2:05 AM EDT [facility] Total Protein 5.2(L) 6.4 - 8.9 g/dL 10/06/2024 2:05 AM EDT [facility] Albumin 3.3(L) 3.5 - 5.7 g/dL 10/06/2024 2:05 AM EDT [facility] Osmolality, Calculated 282 278 - 305 mOsm/kg 10/06/2024 2:05 AM EDT [facility] EGFR 21 10/06/2024 2:05 AM EDT [facility] Comment:As of 2021, the estimated [...] DO LAB BLOOD ORDERABLES Final Resul t [facility] [address] [place] [address], [facility] documented in this encounter Visit Diagnoses Not [...] 10 mg nitroGLYCERIN in D5W injection - [employer]K [employer] AGENT ONLY Intra-op PRN, Starting on Sun10/14/24 at [...] documented as of this encounter Care Teams Rail Engineer Relationship Specialty Start Date End Date Enedina Mcguire NP [address] [place] [address] PCP - General Internal Medicine 10/05/24 documented as of this encounter
--- OUTSIDE RECORDS SUMMARY | 2024-10-20 09:10 | XMS_ITS | Encounter Summary ---
Author Organization [facility] Address [facility] [place] [address] Care Team Providers Care Security Support Analyst Name Role Phone Enedina Mcguire NP Primary Care Provider [phone] Source Comments This information has been disclosed [...] release of HIV test results or diagnoses. [id number] Encounter Details Date Type Department Care Team (Latest Contact Info) Description 10/20/2024 9:10 AM EDT - 10/20/2024 11:59 PM EDT Hospital Encounter [facility] Radiology [address] [place] [phone] System, Provider Not In Discharge Disposition: Home or Self Care WITHOUT [...] Recorded In the past 12 months has [employer], gas, oil, or water [employer] threatened to shut off services in your [...] were you homeless or living in a detention (including now)? No 10/06/2024 Yearly Questionnaire Answer [...] on file documented as of this encounter Medications at Time of Discharge levothyroxine (SYNTHROID) 75 MCG tablet Take 1 tablet (75 mcg total) by mouth every morning before breakfast. loratadine (CLARITIN) 10 mg tablet Take 1 tablet (10 mg total) by mouth daily as needed for Allergies (itching). 30 tablet 10/17/2024 10:24 AM EDT 10/17/2024 naloxone (NARCAN) 4 mg/actuation [place] Apply 1 spray in one nostril if needed. Call 911. May repeat dose in other nostril if no response in 3 minutes. 2 each 1 10/17/2024 10:25 AM EDT 10/17/2024 ciprofloxacin HCl (CIPRO) 500 MG tablet Take 1 tablet (500 mg total) by mouth daily. 30 tablet 10/20/2024 5 FLUoxetine (PROZAC) 20 MG capsule Take [...] mouth 2 times a day. 60 tablet 10/20/2024 5 sodium bicarbonate 650 MG tablet Take 2 tablets (1,300 mg total) by mouth 3 times a day. 90 tablet 10/20/2024 thiamine HCl (VITAMIN B-1) 100 MG tablet [...] 08/20/2024 5 documented as of this encounter Plan of Treatment Not on file documented as of this encounter Procedures Procedure Name Priority Date/Time Associated Diagnosis Comments XR COMPARISON IMAGES Routine 10/20/2024 9:10 AM EDT documented in this encounter Results * X-ray Comparison Images (10/20/2024 9:10 AM EDT) Narrative EXTERNAL - 10/20/2024 9:10 AM EDT Images associated with this accession number were presented to us for comparison to an examination performed here. us Provider Not In System IMG DIAGNOSTIC IMAGING OR DERABLES Final Result EXTERNAL documented in this encounter Visit Diagnoses Not on filedocumented in this encounter Additional Health Concerns Infection Onset Date Last Indicated Resolved Time C. difficile 09/09/2024 09/09/2024 10/27/2024 8:30 AM EDT Assessment Noted Time PHQ-9 Depression Total Score: 17 05/2 025 11:00 AM EDT documented as of this encounter Care Teams Security Support Analyst Relationship Specialty Start Date End Date Enedina Mcguire NP [address] [place] [address] PCP - General Internal Medicine 10/05/24 documented as of this encounter
--- OUTSIDE RECORDS SUMMARY | 2024-10-20 09:10 | XMS_ITS | Encounter Summary ---
Author Organization [facility] Address [facility] [place] [address] Care Team Providers Care Wrap Knitting Machine Operator Name Role Phone Enedina Mcguire NP Primary Care Provider [phone] Source Comments This information has been disclosed [...] release of HIV test results or diagnoses. [id number] Encounter Details Date Type Department Care Team (Latest Contact Info) Description 10/20/2024 9:10 AM EDT - 10/20/2024 11:59 PM EDT Hospital Encounter [facility] Radiology [address] [place] [phone] System, Provider Not In Discharge Disposition: Home [...] In the past 12 months has [employer], gas, oil, or water [employer] threatened to shut off services in [...] AM EDT 10/17/2024 naloxone (NARCAN) 4 mg/actuation [place] Apply 1 spray in one nostril if [...] documented as of this encounter Care Teams Wrap Knitting Machine Operator Relationship Specialty Start Date End Date Enedina Mcguire NP [address] [place] [address] PCP - General Internal Medicine 10/05/24 documented as of this encounter
--- OUTSIDE RECORDS SUMMARY | 2024-10-20 09:10 | XMS_ITS | Encounter Summary ---
Author Organization [facility] Address [facility] [place] [address] Care Team Providers Care Cytogenetic Technologist Name Role Phone Enedina Mcguire NP Primary Care Provider [phone] Source Comments This information has been disclosed [...] release of HIV test results or diagnoses. [id number] Encounter Details Date Type Department Care Team (Latest Contact Info) Description 10/20/2024 9:10 AM EDT - 10/20/2024 11:59 PM EDT Hospital Encounter [facility] Radiology [address] [place] [phone] System, Provider Not In Discharge Disposition: Home [...] Recorded In the past 12 months has [employer], gas, oil, or water [employer] threatened to shut off services in your [...] any time in the past 12 m [facility], were you homeless or [...] AM EDT 10/17/2024 naloxone (NARCAN) 4 mg/actuation [place] Apply 1 spray in one nostril if [...] documented as of this encounter Care Teams Cytogenetic Technologist Relationship Specialty Start Date End Date Enedina Mcguire NP [address] [place] [address] PCP - General Internal Medicine 10/05/24 documented as of this encounter
--- OUTSIDE RECORDS SUMMARY | 2024-10-20 09:10 | XMS_ITS | Encounter Summary ---
Author Organization [facility] Address [facility] [place] [address] Care Team Providers Care Fire Marshal Refinery Name Role Phone Enedina Mcguire NP Primary Care Provider [phone] Source Comments This information has been disclosed [...] release of HIV test results or diagnoses. [id number] Encounter Details Date Type Department Care Team (Latest Contact Info) Description 10/20/2024 9:10 AM EDT - 10/20/2024 11:59 PM EDT Hospital Encounter [facility] Radiology [address] [place] [phone] System, Provider Not In Discharge Disposition: Home [...] Recorded In the past 12 months has [employer], gas, oil, or water [employer] threatened to shut off services in your [...] AM EDT 10/17/2024 naloxone (NARCAN) 4 mg/actuation [place] Apply 1 spray in one nostril if [...] documented as of this encounter Care Teams Fire Marshal Refinery Relationship Specialty Start Date End Date Enedina Mcguire NP [address] [place] [address] PCP - General Internal Medicine 10/05/24 documented as of this encounter
--- OUTSIDE RECORDS SUMMARY | 2024-10-20 09:10 | XMS_ITS | Encounter Summary ---
Author Organization [facility] Address [facility] [place] [address] Care Team Providers Care Car Electronics Installer Name Role Phone Enedina Mcguire NP Primary Care Provider [phone] Source Comments This information has been disclosed [...] release of HIV test results or diagnoses. [id number] Encounter Details Date Type Department Care Team (Latest Contact Info) Description 10/20/2024 9:10 AM EDT - 10/20/2024 11:59 PM EDT Hospital Encounter [facility] Radiology [address] [place] [address] System, Provider Not In Discharge Disposition: Home [...] Recorded In the past 12 months has [employer], gas, oil, or water [employer] threatened to shut off services in your [...] AM EDT 10/17/2024 naloxone (NARCAN) 4 mg/actuation [place] Apply 1 spray in one nostril if [...] documented as of this encounter Care Teams Car Electronics Installer Relationship Specialty Start Date End Date Enedina Mcguire NP [address] [place] [address] PCP - General Internal Medicine 10/05/24 documented as of this encounter
--- OUTSIDE RECORDS SUMMARY | 2024-10-20 09:10 | XMS_ITS | Encounter Summary ---
Author Organization [facility] Address [facility] [place] [address] Care Team Providers Care Optoelectronic Technician Name Role Phone Enedina Mcguire NP Primary Care Provider [phone] Source Comments This information has been disclosed [...] release of HIV test results or diagnoses. [id number] Encounter Details Date Type Department Care Team (Latest Contact Info) Description 10/20/2024 9:10 AM EDT - 10/20/2024 11:59 PM EDT Hospital Encounter [facility] Radiology [address] [place] [address] System, Provider Not In Discharge Disposition: Home [...] Recorded In the past 12 months has [email or web address], gas, oil, or water [employer] threatened to shut off services in [...] living in a residential (including now)? No 10/06/2024 Yearly Questionnaire Answer [...] AM EDT 10/17/2024 naloxone (NARCAN) 4 mg/actuation [place] Apply 1 spray in one nostril if [...] documented as of this encounter Care Teams Optoelectronic Technician Relationship Specialty Start Date End Date Enedina Mcguire NP [address] [place] [address] PCP - General Internal Medicine 10/05/24 documented as of this encounter
--- OUTSIDE RECORDS SUMMARY | 2024-10-20 09:10 | XMS_ITS | Encounter Summary ---
Author Organization [facility] Address [facility] [place] [address] Care Team Providers Care Research Associate Molecular Biology Name Role Phone Enedina Mcguire NP Primary Care Provider [phone] Source Comments This information has been disclosed [...] release of HIV test results or diagnoses. [id number] Encounter Details Date Type Department Care Team (Latest Contact Info) Description 10/20/2024 9:10 AM EDT - 10/20/2024 11:59 PM EDT Hospital Encounter [facility] Radiology [address] [place] [phone] System, Provider Not In Discharge Disposition: Home [...] Recorded In the past 12 months has [employer], gas, oil, or water [employer] threatened to shut off services in your [...] AM EDT 10/17/2024 naloxone (NARCAN) 4 mg/actuation [place] Apply 1 spray in one nostril if [...] documented as of this encounter Care Teams Research Associate Molecular Biology Relationship Specialty Start Date End Date Enedina Mcguire NP [address] [place] [address] PCP - General Internal Medicine 10/05/24 documented as of this encounter
--- OUTSIDE RECORDS SUMMARY | 2024-10-22 14:15 | XMS_ITS | Encounter Summary ---
Author Organization [facility] Address [address] [place] [address] Care Team Providers Care Hiv/Aids Care Nurse Name Role Phone Soco Patel APRN Primary Care Provid er Reason for Visit * Reason Comments Neck Pain Follow-up Encounter Details Date Type Department Care Team (Late st Contact Info) Description 10/22/2024 2:15 PM EDT Office Visit [facility] [address] [place] [phone] Vazquez Christie PA-C [address] [place] [address] Cervical radiculopathy (Primary Dx); Cervical spondylosis without [...] alcohol) 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 [facility] Utilities Answer Date Recorded In the past 12 months has [employer], gas, oil, or water [employer] threatened to shut off services in your [...] Brief Depression Severity Measure Score 0 10/02/2022 [facility] - Occupational [...] GED or equivalent No 07/09/2024 Preferred Language Trinidadian 07/09/2024 PHQ-2 Answer Date Recorded Patient Health [...] was hospitalizedapproximately [facility] at the [facility] due to confusion and lethargy secondary to [...] Surgeon: Presley Montes De Oca MD; Location: [facility]; Service: Gastroenterology; Laterality: N/A; ENDOSCOPY N/A 07/29/2022 Procedure: ESOPHAGOGASTRODUODENOSCOPY; Surgeon: Presley Montes De Oca MD; Location: [facility]; Service: Gastroenterology; Laterality: N/A; WITH APC [...] goals: Follow-up 1 month for medication management [facility] Management Vazquez Christie PA-C documented in this encounter Plan of Treatment Upcoming Encounters Date Type Department Care Team (Late st Contact Info) Description 12/04/2024 2:15 PM EDT Office Visit [facility] [address] [facility] [address] [place] [address] Vazquez Christie PA-C [address] [facility] [address] [place] [address] Scheduled Orders Name Type Priority [...] documented as of this encounter Care Teams Hiv/Aids Care Nurse Relationship Specialty Start Date End Date Soco Patel APRN [address] [facility] [address] [place] [address] PCP - General Family Medicine 10/22/24 10/26/24 documented as of this encounter
--- OUTSIDE RECORDS SUMMARY | 2024-10-25 20:46 | XMS_ITS | Encounter Summary ---
Author Organization [facility] Address [address] [place] [id number] Care Team Providers Care Mechanical Integrity Specialist Name Role Phone Enedina Mcguire NP Primary Care Provider + [phone] Alicia Pantoja RN Unavailable Unavail able Source [...] release of HIV test results or diagnoses. [id number] Reason for Referral * Surgical (Routine) - Authorized Specialty Diagnoses / Procedures Referred By Shane hernadez Referred To Contact Surgery Diagnoses Acute kidney injury superimposed on CKD (CMS-HCC) Procedures Case request operating room: TRANSPLANT KIDNEY with bile duct reconstruction Sveta Judge MD [address] [facility] [address] Surgery [place] [address] Phone: tel: fax: Referral ID Status Reason Start Date Expiration Date V isits Requested Visits Authorized [id number] Authorized 10/26/2024 04/24/2025 1 1 Reason for Visit * Auth/Cert (Routine) Specialty Diagnoses / Procedures Referred By Shane hernadez Referred To Contact Surgical Intensive Care Diagnoses Liver transplant recipient (CMS-HCC) cirrhosis and CKD Procedures LIVER-KIDNEY TRANSPLANT [facility] [address] [place] [address] Phone: tel: Referral ID Status Reason Start Date Expiration Date Visits Re quested Visits Authorized [id number] 1 1 Encounter Details Date Type Department Care Team (Latest Contact Info) Description 10/25/2024 8:46 PM EDT - 11/02/2024 6:23 PM EDT Hospital Encounter [address] [place] [address] Harvey Domínguez III, MD [address] [facility] [address] Transplant [place] [address] Lydia Sanchez MD [address] [facility] Liver/[place] [address] Acute kidney injury superimposed on CKD ([facility]-H[facility]) (Primary Dx); Prophylactic antibiotic; Prolonged QT interval; Immunosuppression ([facility]-HCC); Abdominal pain, unspecified abdominal location Discharge Disposition: [...] Recorded In the past 12 months has [employer], [employer], or water [employer] threatened to shut off services in your [...] in the past 12 m [facility], were you homeless or living in a group home (including now)? No 10/29/2024 Yearly Questionnaire Answer [...] Plata MD - 11/02/2024 2:04 PM EDT [facility] Liver Transplant Surgical Service Inpatient Discharge Summary Patient: Blair Gilbert : 1985 CSN: [id number] Date of Admission: 10/25/2024 Date of Discharge: [...] Case IDs Date Procedure Surgeon Location Status [id number] 10/25/24 LIVER TRANSPLANT Harvey Domínguez III, MD OR Comp [id number] 10/27/24 Donor Kidney Transplant , Back Bench [...] EXAM: US ABDOMEN LIMITED EXAM: US DUPLEX YMG-MARCJQ-QWMQAIR COMPLETE INDICATION: Post-op liver transplant COMPARISON: None [...] visualized secondary to poor acoustic windows. The kake right kidney measures 11.6 cm in length. [...] 30 tablet Refills: 0 naloxone 4 mg/actuation Skelp Commonly known as: NARCAN Apply 1 spray [...] Your Medications These medications were sent to [facility] [address] [address] mycophenolate 250 mg capsule tacrolimus 1 MG capsule These medications were sent to [facility] [address] [facility] [address] Hours: Sunday - Sunday: 8:00AM - 6:00PM [...] Case IDs Date Procedure Surgeon Location Status [id number] 10/25/24 LIVER TRANSPLANT Harvey Domínguez III, MD OR Comp [id number] 10/27/24 Donor Kidney Transplant , Back Bench [...] discharge. NEURO/PAIN - Patient placed on Dilaudid SERVICE ADMINISTRATOR once extubated, then transitioned to multi-modal pain [...] stent is scheduled for removal on 11/25 [facility] - PT/OT evaluated patient and recommended Home PT/OT, outpatient PT/OT only available. ENDO - A1C is 5.0. Pt was not on diabetic regimen prior to arrival. Patient developed steroid-induced hyperglycemia 2/2 steroid regimen. Discharged home on the following regimen: HDSSI. Patient met w/ rn diabetes prior to discharge. HEME - Post-operatively, monitored [...] Patient and family received post-transplant education from medical front desk coordinator as well as medication teaching [...] Department Center 11/04/2024 8:40 AM LTRA SURGERY, [facility] 11/04/2024 10:10 AM LTRA HEPATORENAL [facility] 11/25/2024 9:00 AM NAA Merida [facility] URO [facility] M[facility] 12/02/2024 2:00 PM Bossman Huffman MD [facility]IANGEL [facility] 02/25/2025 10:50 AM Bruno Gonzalez MD [facility] HOX HOX Kenyettafahad Hartman, MS-4 [facility] SHAY PLATA MD 11/02/2024 12:50 PM Cosigned [...] up appointments. Diet: Regular diet Drain/Dressing/Wound Care: [place] will be removed in clinic approximately 3-4 [...] kept under 2 gm/day. Please discuss withyour venue coordinator if you have any question about appropriate dose to take. Other Instructions: Call post-liver transplant clinic with questions [phone] [facility] at [phone] and ask for the liver medical front desk coordinator contact worker if you experience any of the following: [...] Department Center 11/04/2024 8:40 AM LTRA SURGERY, [facility] 11/04/2024 10:10 AM LTRA HEPATORENAL [facility] 11/25/2024 9:00 AM NAA Merida [facility] M[facility] 12/02/2024 2:00 PM Bossman Huffman MD [facility] MARIANGEL MAB MAB 02/25/2025 10:50 AM [...] AM EDT 10/27/2024 lancets (ACCU-CHEK SOFTCLIX LANCETS) [facility] Use to test blood sugar up to [...] AM EDT 10/30/2024 naloxone (NARCAN) 4 mg/actuation Skelp Apply 1 spray in one nostril if [...] tacrolimus and mycophenolate which were dispensed through [facility] per insurance requirements. Patient's confirms [...] fair Expected caregiver involvement?: is primary med information resources manager Need for additional education in clinic?: routine reinforcement only Future medications to be obtained from, if known (select one): Tac/MMF to be filled from [facility] Financial concerns (if any): [...] R-11 blood-glucose meter (TRUE METRIX GLUCOSE METER) [facility] Use to test blood sugar up to [...] Disp-15 mL, R-2 lancets (ACCU-CHEK SOFTCLIX LANCETS) [facility] Use to test blood sugar up to [...] Disp-30 tablet, R-0 naloxone (NARCAN) 4 mg/actuation Skelp Apply 1 spray in one nostril if [...] Solid Organ Transplant Clinical Specialist Contact via [email or web address] Secure Chat * Froylan Hendrickson MD - 11/01/2024 8:04 AM EDT Liver Transplant Surgery Progress Note Name: Blair Gilbert CSN: [id number] Date: 11/01/2024 8:06 AM OR Date: 10/25/2024 [...] at 10/31/2024 4:38 PM EDT US Duplex Zyz-Ogj-Ogcrtbf Comp Result Date: 10/31/2024 IMPRESSION: RIGHT UPPER [...] 10/25/2024 - 10/27/2024. Plan: Liver transplant recipient ([facility]-HCC) [Z94.4] Neuro: - Multimodal pain control: tylenol, [...] 3:24 PM EDT TXP - Follow Up [facility] Medical Nutrition Therapy Transplant Brief Note Diet Order/Nutrition Support: Diet/Nutrition Orders Diet Regular(7) high calorie 3000 kcal a day Frequency: Effective Now Number of Occurrences: Until Specified Order Questions: Additional restrictions: high calorie 3000 kcal a day Suicide/Behavior Risk Modification? No Dietary nutrition supplements Frequency: TID Number of Occurrences: Until Specified Order Questions: Select Supplement: Boost VHC- very high calorie protein supplement ([facility]) Pertinent Information: Pt seen for brief [...] Based on DBW of 93.1 kg Kcals/day: 1129-4446 (25-30 kcals/kg) Protein g/day: 140-190 (1.5-2.0 g/kg) [...] Dietitian - Solid Organ Transplant Contact via [email or web address] Chat * Keon Dobson - 10/31/2024 2:35 PM EDT [facility] Spiritual Care Volunteer Visit PATIENT NAME: Blair Gilbert ROOM:80/[id number] Mosque Affiliation:Confucianist Blair Gilbert was visited by a volunteer today. No needs requiring a visit from a staff dramatic reader were expressed at that time. Care Provided: Communion, Prayer/ blessing Please page our service at [phone] as needs arise for patient and/or family. Fr Dean Dobson Confucianist dramatic reader Spiritual Care Dept * Brittany Horne PT - 10/31/2024 1:42 PM EDT Physical Therapy Reason Patient Not Seen Name: Blair Gilbert : 1985 Attending Physician: Lydia Sanchez MD Admission Diagnosis: Liver transplant recipient ([facility]-HCC) [Z94.4] Date: 10/31/2024 Precautions: Precautions: none Reviewed [...] issued by OT: Long-handled sponge, Sock aid, Rounding Machine Tender, Other (comment) Equipment issued by OT comment: leg acid condenser Assessment Assessment: Decreased ADL status, Decreased IADLs, [...] IADL task (Goal met and continued 10/31) Mcc Goal : Pt will complete bathing assessment and transfer long-term goal to be met in: 2 weeks [...] Alcoholic cirrhosis of liver (CMS-HCC) Esophageal varices ([facility]-HCC) Hepatorenal syndrome ([facility]-HCC) Hypertension Other hyperlipidemia 07/26/2024 Renal cell [...] Patient Active Problem List Diagnosis Decompensated cirrhosis ([facility]) Acute kidney injury superimposed on CKD ([facility]) Alcohol use disorder Metabolic encephalopathy Hypertension Other hyperlipidemia Thrombocytopenia ([facility]) Renal mass, left Abdominal pain Hypokalemia CKD (chronic kidney disease) stage 4, GFR 15-29 ml/min ([facility]) Metabolic acidosis with normal anion gap and bicarbonate losses GERD (gastroesophageal reflux disease) Hypothyroidism Itching Anemia BRBPR (bright red blood per rectum) SBP (spontaneous bacterial peritonitis) ([facility]) C Diff Diarrhea C. difficile diarrhea Neck [...] 10/30/24699 - 10/31/2465810/31/24699 - 11/01/24 0659 Shift 7532-3793 8960-8575 6523-5472 24 Hour Total 5879-4598 5518-3579 1424-2499 24 Hour Total INTAKE P.O. 240 240 P.O. 240 240 Shift Total(mL/kg) 240(1.9) 240(1.9) OUTPUT Urine(mL/kg/hr) 1850(1.8) 600(0.6) 600(0.6) 3050(1) 350 350 Urine 800 172 646 3062 350 350 Urine Occurrence 2 x 2 [...] with further concerns Lavell Kramer MD 10/31/[phone] * Priti Geiger CNP - 10/31/2024 10:06 AM EDT Liver Transplant Surgery Progress Note Name: Blair Gilbert CSN: [id number] Date: 10/31/2024 10:06 AM OR Date: 10/25/2024 [...] 10/28/24 1109 LACTATE 0.3* Imaging US Duplex Hzn-Ioc-Ycreeqb Comp Result Date: 10/28/2024 IMPRESSION: ABDOMINAL ULTRASOUND [...] 10/25/2024 - 10/27/2024. Plan: Liver transplant recipient ([facility]-HCC) [Z94.4] Neuro: - Multimodal pain control: tylenol, [...] MD PhD Transplant Surgery * Caron Santos, PRENATAL GENETIC COUNSELOR - 10/31/2024 9:30 AM EDT Images from the original note were not included. Transplant Nephrology Progress Note Patient: Blair Gilbert [id number]/[id number] Date of Admit: 10/25/2024. 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 BMD: Ca: 8.7 PO4: 4.1 Alb: [...] 10/27/2024 PCO2 35 10/27/2024 PO2ART 92 10/27/2024 EAV0BSO 21 (L) 10/27/2024 BEART -4.6 (L) 10/27/2024 LOB8RNG 95.4 10/27/2024 R2ZDEKMS 98 10/27/2024 Hemodynamics / Cardiovascular Status: Goal [...] % Iron Saturation: SEE COMMENT on 10/25/2024 PwcxinvJ96: No results found for requested labs within [...] preliminary until attending attestation. Lauren Santos, DNP, CLAM SHUCKER, PROVIDER RELATIONS MANAGER- Transplant Nephrology [phone] Preferred contact: secure chat The HPI, ROS, [...] 0659 10/30/24 07 - 10/31/24 0659 Shift 9637-1678 2600-4909 6967-9488 24 Hour Total 0857-1971 0293-0913 9306-6170 24 Hour Total INTAKE P.O. 240 240 480 P.O. 240 240 480 IV Piggyback 87.2 87.2 Volume (mL) (micafungin (MYCAMINE) 50 mg in sodium chloride 0.9 % 100 mL Gnlm7Efa IVPB) 87.2 87.2 Shift Total(mL/kg) 240(2) 327.2(2.7) 567.2(4.4) OUTPUT Urine(mL/kg/hr) 600(0.6) 1175(1.2) 450(0.4) 2225(0.7) 550 550 Output (mL) (IUC (Berkowitz) Triple-lumen (3-Way) 18 Fr.) 600 5854 892 1169 550 550 Drains 175 245 100 520 [...] month of prophylaxis Lavell Kramer MD 10/30/[phone] * Priti Geiger, PRENATAL GENETIC COUNSELOR - 10/30/2024 10:36 AM EDT Liver Transplant Surgery Progress Note Name: Blair Gilbert CSN: [id number] Date: 10/30/2024 10:37 AM OR Date: 10/25/2024 [...] 1109 LACTATE 0.5 0.3* Imaging US Duplex Lvy-Scd-Ziqmxae Comp Result Date: 10/28/2024 IMPRESSION: ABDOMINAL ULTRASOUND [...] 10/25/2024 - 10/27/2024. Plan: Liver transplant recipient ([facility]-H[facility]) [Z94.4] Neuro: - Multimodal pain control: tylenol, [...] Transplant Nephrology Progress Note Patient: Blair Gilbert [id number] 8025/[id number] Date of Admit: 10/25/2024. 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 Lauren Santos, DNP, CLAM SHUCKER, PROVIDER RELATIONS MANAGER- Transplant Nephrology [phone] Preferred contact: secure chat The HPI, ROS, [...] EDT Pt seen, examined, and discussed with PRENATAL GENETIC COUNSELOR on 10/30/2024. reviewed the chart including the [...] 3:36 PM EDT TXP - Follow Up [facility] Medical Nutrition Therapy [...] I/O: +23.3L net volume. Last BM Date: (sole stitcher hand). Admit Weight: 270 lb (122.5 kg) Current [...] Based on DBW of 93.1 kg Kcals/day: 0323-8605 (25-30 kcals/kg) Protein g/day: 140-190 (1.5-2.0 g/kg) [...] Dietitian - Solid Organ Transplant Contact via [email or web address] Chat * Anita Crystal, PT - 10/29/2024 2:04 PM EDT Physical Therapy Initial Assessment Name: Blair Gilbert : 1985 Attending Physician: Harvey Domínguez III, MD Admission Diagnosis: Liver transplant recipient (CMS-HCC) [Z94.4] Date: 10/29/2024 Room: [place] [address] [address] Reviewed Pertinent hospital course: Yes Hospital Course [...] with functional mobility at: 4/10 or less Mcc Goal : Pt will ambulate 250' mod [...] liver (CMS-HCC) Esophageal varices (CMS-HCC) Hepatorenal syndrome ([facility]-H[facility]) Hypertension Other hyperlipidemia 07/26/2024 Renal cell [...] Patient Active Problem List Diagnosis Decompensated cirrhosis ([facility]) Acute kidney injury superimposed on CKD ([facility]) Alcohol use disorder Metabolic encephalopathy Hypertension Other hyperlipidemia Thrombocytopenia ([facility]) Renal mass, left Abdominal pain Hypokalemia CKD (chronic kidney disease) stage 4, GFR 15-29 ml/min ([facility]) Metabolic acidosis with normal anion gap and bicarbonate losses GERD (gastroesophageal reflux disease) Hypothyroidism Itching Anemia BRBPR (bright red blood per rectum) SBP (spontaneous bacterial peritonitis) ([facility]) C Diff Diarrhea C. difficile diarrhea Neck pain with history of cervical spinal surgery * Shanel Pabon, OT - 10/29/2024 1:23 PM EDT Occupational Therapy Initial Assessment Name: Blair Gilbert : 1985 Attending Physician: Harvey Domínguez III, MD Admission Diagnosis: Liver transplant recipient ([facility]) [Z94.4] Date: 10/29/2024 Room: [place] [address] [address] Reviewed Pertinent hospital course: Yes Hospital Course [...] Intervention(s): Ambulation/increased activity;Repositioned Therapist reported pain to: transmission maintenance supervisor Oxygen Supplemental Oxygen Supplemental Oxygen: None (Room [...] distance ambulation in prep for IADL task Application Packager Goal : Pt will complete bathing assessment and transfer long-term goal to be met in: 2 weeks [...] kidney disease) stage 4, GFR 15-29 ml/min ([facility]) Metabolic acidosis with normal anion gap and bicarbonate losses GERD (gastroesophageal reflux disease) Hypothyroidism Itching Anemia BRBPR (bright red blood per rectum) SBP (spontaneous bacterial peritonitis) ([facility]) C Diff Diarrhea C. difficile diarrhea Neck pain with history of cervical spinal surgery * Caron Santos CNP - 10/29/2024 10:30 AM EDT Images from the original note were not included. Transplant Nephrology Progress Note Patient: Blair Gilbert [id number] SICU-28/IC-28 Date of Admit: 10/25/2024. 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 Lauren Santos, DNP, CLAM SHUCKER, PROVIDER RELATIONS MANAGER- Transplant Nephrology [phone] Preferred contact: secure chat The HPI, ROS, [...] EDT Pt seen, examined, and discussed with PRENATAL GENETIC COUNSELOR on 10/29/2024. reviewed the chart including the labs and imaging studies. My additional comments below. 39 y.o. 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 S/p SLK 10/25-10/26 Has great UOP 4.2L; 720 drain output Aaron Gonzalez MD, MEd, FASN * Kenyetta Hartman - 10/29/2024 10:07 AM EDT Liver Transplant Surgery Progress Note Name: Blair Gilbert CSN: [id number] Date: 10/29/2024 10:08 AM OR Date: 10/25/2024 [...] LACTATE 0.4* 0.5 0.3* Imaging US Duplex Rdt-Thv-Uytumar Comp Result Date: 10/28/2024 IMPRESSION: ABDOMINAL ULTRASOUND [...] at 10/27/2024 10:38 AM EDT US Duplex Owx-Mim-Ozqwvbz Comp Result Date: 10/27/2024 IMPRESSION: RIGHT UPPER [...] 10/25/2024 - 10/27/2024. Plan: Liver transplant recipient ([facility]-H[facility]) [Z94.4] Neuro: - Multimodal pain control: tylenol, [...] SQH, SCDs DISPO: floor KENYETTA HARTMAN, MS4 [facility] General Surgery 10:08 AM 10/29/2024 Cosigned by [...] 0659 10/29/24 07 - 10/30/24 0659 Shift 0587-9725 3548-3161 6436-0578 24 Hour Total 5200-8941 6487-9790 7390-1999 24 Hour Total INTAKE P.O. 240 0 [...] IV infusion) 253.9 374.7 775.6 1404.2 Blood 1989 371 6990 Albumin 750 750 Volume (Transfuse RBC Transfusion Rate: Per dept routine) 310 310 Volume (Transfuse RBC Transfusion Rate: Per dept routine) 271 271 IV Piggyback 918.4 065 83 0358.4 Volume (mL) (micafungin (MYCAMINE) 50 mg in sodium chloride 0.9 % 100 mL Whql2Sqr IVPB) 99.9 99.9 Volume (mL) (albumin human [...] month of prophylaxis Lavell Kramer MD 10/29/[phone] * John Moreno MD - 10/29/2024 6:47 AM EDT SURGICAL ICU PROGRESS NOTE 10/29/2024 6:47 AM Name: Blair Gilbert CSN: [id number] HPI: Blair Gilbert is a 39 y.o. [...] to 4 times a day. DEXCOM G7 BAGGAGE SMASHER Misc Use reader as directed. DEXCOM G7 [...] times a day. naloxone (NARCAN) 4 mg/actuation Skelp Apply 1 spray in one nostril if [...] 37 37 35 PO2ART 245* 182* 92 NUV4HAC 22 21* 21* BEART -4.2* -4.8* -4.6* [...] at baseline or with provocation, shows no zfvvb-rj-ijan atrial level shunt. - Pulmonary arteries: Systolic [...] Home pantoprazole 40mg daily, continue Last BM: OPTICAL ASSISTANT - suppository today Bowel regimen: Miralax today, [...] results for input(s): TEGANGLE , TEGKTIME , VJRGHOSA90 , TEGMAXAMPL , TEGRTIME , CBMZ in [...] in sodium chloride 0.9 % 100 mL Bdiv0Psw IVPB 50 mg Every 24 hours 10/27/2024 -- Admin Instructions: PROTECT FROM LIGHT FLUSH LINE w/NSS PRIOR TO ADMINISTRATION Use Whbd3Wde Adapter - Mix Thoroughly Before Administration Route: [...] BID Continuous Infusions: HYDROmorphone 6 mg/30 mL SERVICE ADMINISTRATOR norepinephrine 4 mcg/min (10/27/24 2318) sodium chloride [...] - 10/28/2465810/28/24 07 - 10/29/24 0659 Shift 2828-4826 3959-0218 9435-9141 24 Hour Total 8896-0601 0403-7536 8097-1127 24 Hour Total INTAKE P.O. 0 120 [...] in sodium chloride 0.9 % 100 mL Joil9Cog IVPB) 100 100 Volume (mL) (albumin human 5%) 126 126 Volume (mL) (potassium chloride (KCl)/Sterile water 50 mL 20 mEq/50 mL IVPB 20 mEq) 100 100 Volume (mL) (AMPicillin 1 g in sodium chloride 0.9% 100 mL IVPB (Nyjo6Wkx)) 100.1 57 42.9 200 Volume (mL) (mycophenolate (CELLCEPT) 500 mg in dextrose 5% in water (D5W) 50 mL IVPB) 50 5.3 55.3 Shift Total(mL/kg) 2079.3(17) 1161(9.5) 787.3(6.4) 4027.6(32.9) OUTPUT Urine(mL/kg/hr) 2195(2.2) 1000(1) 900(0.9) 4095(1.4) 490 490 Urine 360 360 Output (mL) (IUC (Berkowitz) Triple-lumen (3-Way) 18 Fr.) 1835 0219 523 3755 490 490 Emesis/NG output 50 50 Drainage [...] month of prophylaxis Lavell Kramer MD 10/28/[phone] * Caron Santos CNP - 10/28/2024 9:00 AM EDT Images from the original note were not included. Transplant Nephrology Progress Note Patient: Blair Gilbert [id number] SICU-28/USIC-28 Date of Admit: 10/25/2024. 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 Lauren Santos, SAMSON, CLAM SHUCKER, PROVIDER RELATIONS MANAGER- Transplant Nephrology [phone] Preferred contact: secure chat The HPI, ROS, [...] Surgery Progress Note Name: Blair Gilbert CSN: [id number] Date: 10/28/2024 11:05 AM OR Date: 10/25/2024 - 10/27/2024 Subjective: 1 Day Post-Op Received one unit pRBCs overnight On low dose levo this morning Increasing tachycardia Reports worsening pain, on SERVICE ADMINISTRATOR Tolerated sips of clears No nausea/vomiting, no [...] Oral BID Continuous: HYDROmorphone 6 mg/30 mL SERVICE ADMINISTRATOR norepinephrine Stopped (10/28/24 0637) sodium chloride 0.9 [...] at 10/27/2024 10:38 AM EDT US Duplex Oko-Joc-Toihyna Comp Result Date: 10/27/2024 IMPRESSION: RIGHT UPPER [...] 10/25/2024 - 10/27/2024. Plan: Liver transplant recipient ([facility]) [Z94.4] Neuro: - Multimodal pain control: dilaudid SERVICE ADMINISTRATOR, tylenol, robaxin. PRN dilaudid for breakthrough CV: [...] SCDs DISPO: SICU SHAY PLATA MD, MS4 [facility] Surgery 11:05 AM 10/28/2024 Cosigned by Lydia [...] 10/28/2024 6:17 AM Name: Blair Gilbert CSN: [id number] HPI: Blair Gilbert is a 39 y.o. [...] day. blood-glucose meter (TRUE METRIX GLUCOSE METER) [facility] Use to test blood sugar up to 4 times a day. DEXCOM G7 BAGGAGE SMASHER Misc Use reader as directed. DEXCOM G7 [...] and at bedtime. lancets (ACCU-CHEK SOFTCLIX LANCETS) [facility] Use to test blood sugar up to 4 times a day. methocarbamoL (ROBAXIN) 500 MG tablet Take 1 tablet (500 mg total) by mouth 3 times a day. naloxone (NARCAN) 4 mg/actuation Skelp Apply 1 spray in one nostril if [...] Oral BID Continuous: HYDROmorphone 6 mg/30 mL SERVICE ADMINISTRATOR insulin regular in 0.9 % sodium chloride [...] 37 37 35 PO2ART 245* 182* 92 KQF9AHP 22 21* 21* BEART -4.2* -4.8* -4.6* [...] at baseline or with provocation, shows no lfwkz-jd-iwys atrial level shunt. - Pulmonary arteries: Systolic [...] while intubated,convert to PO today Last BM: OPTICAL ASSISTANT Bowel regimen: Miralax today, hold senna til [...] ml IV Fluids: HYDROmorphone 6 mg/30 mL SERVICE ADMINISTRATOR insulin regular in 0.9 % sodium chloride, [...] results for input(s): TEGANGLE , TEGKTIME , RHWNBDEW21 , TEGMAXAMPL , TEGRTIME , CBMZ in [...] in sodium chloride 0.9% 100 mL IVPB (Lwer7Otw) (Completed) 1 g Every 6 hours scheduled 10/26/2024 10/28/2024 Admin Instructions: Dosage may need to be adjusted for renal dysfunction. Full dose is 1g IV q6h Use Jadj0Ipz Adapter - Mix Thoroughly Before Administration Notes to Pharmacy: On order booker estimated creatinine clearance is 35.9 mL/min (A) [...] in sodium chloride 0.9 % 100 mL Wtlk7Kcp IVPB 50 mg Every 24 hours 10/27/2024 -- Admin Instructions: PROTECT FROM LIGHT FLUSH LINE w/NSS PRIOR TO ADMINISTRATION Use Omgu1Mhp Adapter - Mix Thoroughly Before Administration Route: [...] the Caprini Risk Score of 10 and [facility] transplant protocol, I recommend discharging on heparin [...] Solid Organ Transplant Clinical Specialist Contact via [email or web address] Secure Chat Preferred O. [phone] * Chinedu Almeida FINISHER COLD ROLLING - 10/27/2024 1:10 PM EDT Patient extubated [...] Yes MD Order No SBT No Yes [place] Coma Scale > 8 Yes Lab Results Component Value Date PHART 7.36 10/27/2024 PCO2 37 10/27/2024 PO2ART 245 (H) 10/27/2024 BXP1FBM 22 10/27/2024 BEART -4.2 (L) 10/27/2024 WNO9URU 96.5 10/27/2024 B0HQARSZ 100 10/27/2024 Based on this SBT assessment [...] Surgery Progress Note Name: Blair Gilbert CSN: [id number] Date: 10/27/2024 11:40 AM OR Date: 10/25/2024 - 10/27/2024 Subjective: * Day of Surgery * Remains intubated in SICU Sedated but appropriately nods to questions No acute distress Objective: BP 100/48 Pulse 89 Temp 99 ??F (37.2 ??C) ([place]) Resp 9 Ht 6' 4 (1.93 m) [...] at 10/27/2024 10:38 AM EDT US Duplex Ozl-Lfi-Ntpmjvz Comp Result Date: 10/27/2024 IMPRESSION: RIGHT UPPER [...] 10/27/2024. Problem List[1] Plan: Liver transplant recipient ([facility]) [Z94.4] Neuro: - Propofol/fentanyl CV: - Wean [...] SQH, SCDs DISPO: SICU KENYETTA HARTMAN, MS4 [facility] 11:40 AM 10/27/2024 [1] Patient Active Problem List Diagnosis Decompensated cirrhosis ([facility]) Acute kidney injury superimposed on CKD ([facility]) Alcohol use disorder Metabolic encephalopathy Hypertension Other hyperlipidemia Thrombocytopenia ([facility]) Renal mass, left Abdominal pain Hypokalemia CKD (chronic kidney disease) stage 4, GFR 15-29 ml/min ([facility]) Metabolic acidosis with normal anion gap and bicarbonate losses GERD (gastroesophageal reflux disease) Hypothyroidism Itching Anemia BRBPR (bright red blood per rectum) SBP (spontaneous bacterial peritonitis) ([facility]) C Diff Diarrhea C. difficile diarrhea Neck [...] MD Transplant Surgery (cell) * Chinedu Almeida, FINISHER COLD ROLLING - 10/27/2024 11:14 AM EDT Placed on SBT at this time. * Chinedu Almeida RRT - 10/27/2024 10:31 AM EDT ECG performed on patient Blair Gilbert in SICU-28/USIC-28. Test transmitted and paper copy placed inpatient's chart. * Chinedu Almeida RRT - 10/27/2024 7:45 AM EDT Patient [...] 10/27/2024 7:16 AM Name: Blair Gilbert CSN: [id number] HPI: Blair Gilbert is a 39 y.o. [...] for 30 days. FREESTYLE NIDA 3 READER [facility] Use 1 each as directed Use as [...] in the morning and at bedtime. lancets [facility] Use to test blood sugar up to 4 times a day. Dx: 9.65. Brand per pharmacy / insurance preference. methocarbamoL (ROBAXIN) 500 MG tablet Take 1 tablet (500 mg total) by mouth 3 times a day. mycophenolate (CELLCEPT) 250 mg capsule Take 2 capsules (500 mg total) by mouth 2 times a day. naloxone (NARCAN) 4 mg/actuation Skelp Apply 1 spray in one nostril if [...] 47* 36 37 PO2ART 127* 91 137* GGD8MPU 21* 22 20* BEART -5.4* -3.9* -6.4* [...] at baseline or with provocation, shows no ndzni-lf-xeji atrial level shunt. - Pulmonary arteries: Systolic [...] IV pantoprazole while intubated, NPO Last BM: OPTICAL ASSISTANT Bowel regimen: Senna/Miralax when able Nausea: Zofran [...] 10/27/2024 0715 Gross per 24 hour Intake 48104.82 ml Output 7060 ml Net 6224.82 ml [...] results for input(s): TEGANGLE , TEGKTIME , IHAHEDUB85 , TEGMAXAMPL , TEGRTIME , CBMZ in [...] in sodium chloride 0.9% 100 mL IVPB (Lprg3Fmm) 1 g Every 6 hours scheduled Admin Instructions: Dosage may need to be adjusted for renal dysfunction. Full dose is 1g IV q6h Use Dkdd4Ayr Adapter - Mix Thoroughly Before Administration Notes to Pharmacy: On order booker estimated creatinine clearance is 35.9 mL/min (A) (based on SCr of 3.87 mg/dL (H)). Route: Intravenous Linked Group 1: Placed in And Linked Group cefTRIAXone (ROCEPHIN) 2 g in sodium chloride 0.9 % 100 mL Cbfa6Lzi Continuous - One Step Medications Only 10/27/2024 [...] R IJ Mac Arterial Line? R radial [place] Urinary Catheter? Berkowitz - Reason: Adequate I/O [...] Solid Organ Transplant Clinical Specialist Contact via [email or web address] Secure Chat Preferred * Simeon Guzman RN [...] 10/26/2024 0725 Gross per 24 hour Intake 17926.32 ml Output 2075 ml Net 46957.32 ml Consitutional: Intubated/sedated HEENT: Mucous membranes moist [...] History and Physical Patient: Blair Gilbert CSN: [id number] History CC: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 naloxone (NARCAN) 4 mg/actuation Skelp Apply 1 spray in one nostril if [...] No Physical Activity: Unknown (07/14/2024) Received from [facility] Exercise Vital Sign Days of Exercise per Week: Patient unable to answer Minutes of Exercise per Session: Not on file Stress: Patient Unable To Answer (07/14/2024) Received from [facility] [place] [employer] Occupational [employer] - Occupational Stress Questionnaire Feeling of Stress : Patient unable to answer Social Connections: Patient Unable To Answer (07/14/2024) Received from [facility] Social Connection and Isolation Panel [NHANES] Frequency of Communication with Friends and Family: Patient unable to answer Frequency of Social Gatherings with Friends and Family: Patient unable to answer Attends Mosque Services: Patient unable to answer Active Member [...] admitted to SICU post-op. LEANDRA OG MD [facility] Liver Transplant Pager: [phone] 8:24 PM 10/25/2024 Cosigned by Harvey [...] Name: Blair Gilbert Date: 1985 Billing #: [id number] Date of Procedure: 10/25/2024 Diagnosis: End Stage Renal Disease Procedure: 1. Donor Kidney Transplant 2. Back Bench Preparation Donor Kidney 3. Baseline Kidney transplant biopsy 4. Insertion of Indwelling Stent 5. Removal of Perihepatic packing Surgeons * Flaquito Ba MD Supervisor Delivery Department MD Shayan Findings: Low Hockey stick incision [...] donor was ABO O and UNOS ID [id number], Match Run [id number] (K). 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 The incision was ex tented 2 inches [...] and closure. Flaquito Ba MD Transplant Surgeon aging room operator * Flaquito Ba MD - 10/27/2024 6:15 AM EDT TRANSPLANT KIDNEY with bile duct reconstruction Brief Op Note Blair Gilbert 10/27/2024 Pre-op Diagnosis: Acute kidney injury superimposed on CKD (CMS-HCC) [N17.9, N18.9] Post-op Diagnosis: same Procedure(s): TRANSPLANT KIDNEY Surgeon(s): MD Harvey Washington III, MD Anesthesia: General Endotracheal Staff: Tool And Die Maker Apprentice: Chinedu Quinn RN Scrub Person: ST Angela Fellow: Kemar Sahni MD 2nd Tool And Die Maker Apprentice: Marty Clark RN 3rd Tool And Die Maker Apprentice: Candis Mcdaniel RN FINDINGS Berkowitz 3 day Drains: Intraabdominal (perihepatic) UNOS ID [id number], Match Run [id number] Kid WIT 27 min Kid CIT 33 [...] (Berkowitz) Triple-lumen (3-Way) 18 Fr. (Active) Status [place] 10/26/241999 Collection Container Standard drainage bag [...] Washington III, MD Anesthesia: General Endotracheal Staff: Tool And Die Maker Apprentice: Chinedu Quinn RN Relief Tool And Die Maker Apprentice: Michela Amos RN Relief Scrub: Stephani Blake RN Scrub Person: ST Angela Fellow: Kemar Sahni MD 2nd Tool And Die Maker Apprentice: Marty Clark RN 3rd Tool And Die Maker Apprentice: Candis Mcdaniel RN Estimated Blood Loss: 300 [...] (Berkowitz) Triple-lumen (3-Way) 18 Fr. (Active) Status [place] 10/26/241999 Collection Container Standard drainage bag [...] day Drains: 2 Intraabdominal (perihepatic) UNOS ID [id number], Match Run [id number] Donor: young DCD NRP Kid WIT 27 min Kid CIT 33 hours Removal of Perihepatic packing- 5 Raytecs 2 laps There were no complications unless listed below. KEMAR SAHNI MD Date: 10/27/2024 Time: 7:35 AM Cosigned by Harvey Domínguez III, MD at 10/30/2024 10:46 AM EDT Associated attestation - Harvey Domínguez III, MD - 10/30/2024 10:46 AM EDT --- Daindra Domínguez III, MD Transplant Surgery (cell) * Harvey Domínguez III, MD - 10/27/2024 12:00 AM EDT [facility] PATIENT NAME: BLAIR GILBERT DATE OF : 1985 CSN: [id number] PHYSICIAN: Harvey Domínguez III, MD ADMIT DATE: 10/25/2024 DICTATED BY: Harvey Domínguez III, MD SURGERY DATE: 10/27/2024 OPERATIVE REPORT SURGEON: Harvey Domínguez III, MD ISOBUTYLENE OPERATOR CHIEF SURGEON: Kemar Sahni MD. PREOPERATIVE DIAGNOSIS: Open [...] were made hemostatic with the argon beam mate relief. We assessed the flows of the portal [...] a mucocele formation. We then performed a xvgu-cy-qnnm choledochocholedochostomy in an end to end fashion [...] small umbilicalhernia that was closed with a bhnkiv-fk-hokwu 0 PDS suture. At this point, we [...] immediate complications. MD TEODORA HARMON IIIQ/AQ JOB#: [id number] * Harvey Domínguez III, MD - 10/26/2024 7:00 AM EDT Patient Name: Blair Gilbert Date: 1985 Billing #: [id number] Date of Procedure: 10/25/2024 - 10/26/2024 Diagnosis: Chronic Hepatic Failure without coma Procedure: 1. Orthotopic Liver Transplant 2. Back Bench Preparation Donor Liver 3. Temporary portocaval shunt 4. Perihepatic packing for control of hemorrhage 5. Placement of external choledochal stent 6. Temporary abdominal closure Attending surgeons: Harvey Domínguez III, MD Supervisor Delivery Department Surgeon(s): Sveta Judge MD Findings: Whole organ placed in piggyback fashion with suprahepatic cava of donor to common orifice of all three hepatic veins for IVC anastomosis. Donor main portal vein to recipient main portal vein. Donor common hepatic artery to recipient right hepatic artery. Temporary abdominal with perihepatic packingfor control of hemorrhage. Externalization of bile duct with 8 Indian pediatric feeding tube. Portal Flow Modulation No [...] This donor was ABO O and UNOSID [id number], Match Run [id number]. This was a 42-year-old donation after circulatory [...] After completion of the outflow anastomosis, a Upper Sor[place] clamp was placed across the donor suprahepatic [...] artery flows were then measured with the [employer] device. The portal flow was 3.4 L/min [...] do a temporary abdominal closure. An 8 Indian pediatric feeding tube was brought through the [...] Sveta Alves III, MD Anesthesia: General Staff: Tool And Die Maker Apprentice: Mak Maher RN; Marty Clark RN Scrub Person: ST Angela Resident: Thuy Leon MD mold carpenter: Jose Daniel Arana RRT Estimated Blood Loss: [...] Number of days: 5 Surgery Information: -UNOS#: [id number] -ABO: O to O -Recipient: SLK candidate [...] 1:19 PM EDTAssociated Order(s): IP CONSULT TO DIRECTOR PHARMACOLOGY [facility] Transplant Discharge Education Note Assessment: Received referral [...] for reference. Education Outcome: 3 - Comprehends albarado points Elle Gomez, OLIVE, RN, NPD- Diabetes Education Office [phone] Schedule: M-F 8:00am-4:30pm * Ben Weiss RD - 10/27/2024 4:06 PM EDTAssociated Order(s): IP CONSULT TO NUTRITION SERVICES; IP CONSULT TO NUTRITION SERVICES TXP - Initial [facility] Medical Nutrition Therapy Reason(s) for Completion: Physician/Nursing [...] I/O: +23.2L net volume. Last BM Date: (OPTICAL ASSISTANT). Admit Weight: 270 lb (122.5 kg) Current [...] Based on DBW of 93.1 kg Kcals/day: 5239-8763 (25-30 kcals/kg) Protein g/day: 140-190 (1.5-2.0 g/kg) [...] Dietitian - Solid Organ Transplant Contact via [email or web address] Chat * Lavell Kramer MD - 10/27/2024 11:09 AM EDTAssociated Order(s): INPATIENT CONSULT TO TRANSPLANT INFECTIOUS DISEASES Infectious Disease Consultation Patient: Blair Gilbert CSN: [id number] Assessment & Plan 39 y.o. M s/p [...] blood cx's if febrile Lavell Kramer MD [phone] Chief Complaint Long Qtc History of Present [...] No Physical Activity: Unknown (07/14/2024) Received from [facility] Exercise Vital Sign Days of Exercise per Week: Patient unable to answer Minutes of Exercise per Session: Not on file Stress: Patient Unable To Answer (07/14/2024) Received from [facility] [place] [employer] - Occupational Stress Questionnaire Feeling of Stress : Patient unable to answer Social Connections: Patient Unable To Answer (07/14/2024) Received from [facility] Social Connection and Isolation Panel [NHANES] Frequency of Communication with Friends and Family: Patient unable to answer Frequency of Social Gatherings with Friends and Family: Patient unable to answer Attends Mosque Services: Patient unable to answer Active Member [...] this morning; liver 10/25/24. Review of Systems EDAWRD s/t sedation Past Medical History: Diagnosis Date [...] to 4 times a day. DEXCOM G7 BAGGAGE SMASHER Misc Use reader as directed. DEXCOM G7 [...] and at bedtime. lancets (ACCU-CHEK SOFTCLIX LANCETS) [facility] Use to test blood sugar up to 4 times a day. methocarbamoL (ROBAXIN) 500 MG tablet Take 1 tablet (500 mg total) by mouth 3 times a day. mycophenolate (CELLCEPT) 250 mg capsule Take 2 capsules (500 mg total) by mouth 2 times a day. naloxone (NARCAN) 4 mg/actuation Skelp Apply 1 spray in one nostril if [...] CKD IIIb/IV: - Presumed s/t HRS - Academic Dean: Yovanny Curran at [facility] Allograft Function: S/p SLK 10/25- (kidney preemptive) [...] 10/27/2024 1500 Gross per 24 hour Intake 81133.28 ml Output 5950 ml Net 6403.28 ml Heme/Anemia: WBC: 5.8 Goal HgB 10-12 mg/dL Hgb: 7.5 Plt 50 Iron: 128 on 10/25/2024 Ferritin 623.2 on 10/25/2024 TIBC: SEE COMMENT on 10/25/2024 % Iron Saturation: SEE COMMENT on 10/25/2024 LwyptioX94: No results found for requested labs within [...] - Monitor renal function. No indications for FINISHER COLD ROLLING. Good UOP - Noted KT US WNL [...] preliminary until attending attestation. Lauren Santos, DNP, CLAM SHUCKER, PROVIDER RELATIONS MANAGER- Transplant Nephrology [phone] Preferred contact: secure chat [1] Allergies Allergen [...] Gonzalez MD, MEd, FASN * Marcellus Hebert, STOCK BLENDER, SPECIALTY THERAPIST - 10/27/2024 10:21 AM EDT HEALTH Care Management/Social Work Assessment Patient Information Patient Name: Blair Gilbert Hospital Day: 2 Inpatient/Observation: Inpatient Admit Date: 10/25/2024 Admission Diagnosis: Liver transplant recipient ([facility]) [Z94.4] Attending provider: Harvey Domínguez III, MD PCP: Enedina Mcguire NP Home Pharmacy: [facility] [address] [place], [place] [address] [address] [facility] [address] [facility] [address] Issues related to obtaining medications: N/A Payor Information Medical Insurance Coverage: Payor: [employer] / Plan: [facility] / Product Type: *No [...] History: 12 weeks of CD Treatement at [facility] Do you need Substance Abuse Treatment Resources?: [...] Was any abuse reported by patient?: No [place] Status & Connection to VA Services Status [...] resides with his spouse at their [facility] in [place]. 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 Patient's LNOK:Spouse, Abdiaziz Gilbert, Patient has no current or past history of suicidal/homicidal ideation. Patient has a history of mental health diagnoses, PTSD and Generalized Anxiety Disorder. Patient is connected with TransplantPsychiatrist and prescribed Prozac. Patient has a history of alcohol use and has completed 12 weeksof CD Treatment at [facility]. Spouse explained that he will complete a 6 month virtual program post transplant but could not recall the name of the program. Patient has no current tobacco use. No previous need or recommendation for home health care services and no previous placements at senior living facility and/or inpatient rehab program. Patient has [...] as appropriate. NUBIA Escalera, RONALDO Phone Number: [phone] * John Moreno MD - 10/26/2024 3:41 AM EDT SURGICAL ICU CONSULT NOTE 10/26/2024 3:41 AM Name: Blair Gilbert CSN: [id number] HPI: Blair Gilbert is a 39 y.o. [...] at 9:00 PM naloxone (NARCAN) 4 mg/actuation Skelp Apply 1 spray in one nostril if [...] % 250 mL infusion 2.5 mcg/min (10/26/24 7609) insulin regular in 0.9 % sodium chloride [...] input(s): PHART , PCO2 , PO2ART , GOT2LAM , BEART in the last 72 hours. [...] at baseline or with provocation, shows no myfuv-xi-tqox atrial level shunt. - Pulmonary arteries: Systolic [...] IV pantoprazole while intubated, NPO Last BM: OPTICAL ASSISTANT Bowel regimen: Senna/Miralax when able Nausea: Zofran PRN FLUID/ELECTROLYTES Recent Labs 10/25/24 2217 NA 137 K 2.1* CL 100 CO2 20* BUN 74* CREATININE 3.87* CALCIUM 9.3 PHOS 5.9* GLUCOSE 114* Intake/Output Summary (Last 24 hours) at 10/26/2024 0341 Last data filed at 10/26/2024 0326 Gross per 24 hour Intake 74625 ml Output 675 ml Net 25158 ml IV Fluids: EPINEPHrine (ADRENALIN) 10 mg in sodium chloride 0.9 % 250 mL infusion, Last Rate: 2.5 mcg/min (10/26/24 6366) insulin regular in 0.9 % sodium chloride norepinephrine, Last Rate: 18 mcg/min (10/26/24 365) vasopressin, Last Rate: 0.04 Units/min (10/26/24 2924) A/P: - Goal UOP >0.5 cc/kg/hr - [...] results for input(s): TEGANGLE , TEGKTIME , XOWPJWLK75 , TEGMAXAMPL , TEGRTIME , CBMZ in [...] in sodium chloride 0.9% 100 mL IVPB (Yaad7Whr) 2 g Every 6 hours 10/26/2024 -- Admin Instructions: Use Qius0Gnm Adapter - Mix Thoroughly Before Administration Notes to Pharmacy: On order booker estimated creatinine clearance is 35.9 mL/min (A) (based on SCr of 3.87 mg/dL (H)). Route: Intravenous AMPicillin 2 g in sodium chloride 0.9% 100 mL IVPB (Gaiv8Xho) 2 g Once 10/26/2024 -- Admin Instructions: Use Dmha9Qcv Adapter - Mix Thoroughly Before Administration Notes to Pharmacy: On order booker estimated creatinine clearance is 35.9 mL/min (A) (based on SCr of 3.87 mg/dL (H)). Route: Intravenous cefTRIAXone (ROCEPHIN) 2 g in sodium chloride 0.9 % 100 mL Uigj8Flv (Completed) 2 g Once 10/25/2024 10/26/2024 Admin Instructions: Use Xlkq0Jle Adapter - Mix Thoroughly Before Administration Route: [...] R IJ Mac Arterial Line? R radial [place] Urinary Catheter? Berkowitz - Reason: Adequate I/O DVT Prophylaxis: Subcutaneous Heparin GI Prophylaxis: PPI PT/OT: will engage when appropriate Activity: Bed in chair position DISPOSITION Remain in SICU JOHN MORNEO MD 10/26/2024 3:41 AM [1] Allergies Allergen [...] 47 (H) 10/26/2024 PO2ART 127 (H) 10/26/2024 RCT1BXB 21 (L) 10/26/2024 BEART -5.4 (L) 10/26/2024 RFT5QRW 94.6 (L) 10/26/2024 M6OOCTVB 98 10/26/2024 P:F ratio = 363 CARDIOVASCULAR: [...] Acute Care Surgery, and Surgical Critical Care [facility] Academic Office [phone] For Transfers, call [phone] documented in this encounter Nursing Notes * [...] Escalera, RONALDO - 10/31/2024 11:34 AM EDT [facility] Case Management/Social Work Department Progress Note [...] disease. PCP: Enedina Mcguire NP Home Pharmacy: [facility] [address] [place] [address] [address] [facility] [address] [facility] [address] [facility] SPECIALTY [facility] 105 [facility] [address] [facility] [id number] Medical Insurance Coverage: Payor: [employer] CARE / Plan: [employer] / [...] aware that there were no accepting C agencies([facility], [facility], [facility]) and patient would need to outpatient for PT/OT and labs. Discharge Plan Anticipated discharge plan: Home with HHC vs Home with outpatient Anticipated discharge date: 11/01 CM/SW will continue to follow and remain available for discharge planning needs. NUBIA Escalera, RONALDO Cell [phone] * Plan of Care - Paulette Flannery [...] hyperlipidemia (07/26/2024), Renal cell carcinoma (CMS-HCC), Thrombocytopenia ([facility]), and Thyroid disease. PCP: Enedina Mcguire NP Home Pharmacy: [facility] [address] [place], [place] [address] [address] [address] [facility] [address] [facility] [address] [facility] 105 [facility] [address] [facility] [address] Medical Insurance Coverage: Payor: [facility] / Plan: [employer] / [...] MEREDITH submitted blanket HHC referral to [facility] [place], [employer] [facility], [employer] [facility], and [facility]. Awaiting responses. SW to followpending clearance [...] for discharge planning needs. Citlaly Nova MSW, SPECIALTY THERAPIST Inpatient Mold Chipper/Care Coordination [phone] * Plan of Care - Soco Yap [...] Escalera, RONALDO - 10/28/2024 2:29 PM EDT [facility] Case Management/Social Work Department Progress Note [...] disease. PCP: Enedina Mcguire NP [facility] KHAD[facility] [address] [facility] [address] [facility] [address] [facility] [address] [facility] [address] [place] [id number] Medical Insurance Coverage: Payor: [employer] [...] discharge planning needs. NUBIA Escalera, RONALDO Cell [phone] * Plan of Care - Elaine Carrillo [...] at all times. Outcome: Completed Problem: Non-violent, kli-ywxy-tvfztbfjmwq restraints Description: Less restrictive alternative interventions will [...] protection of medical procedures, or protection of district medical examiner access. Outcome: Completed * Plan of Care [...] foods as appropriate. Outcome: Progressing Problem: Non-violent, vts-grai-tdfwhdwkkxc restraints Description: Less restrictive alternative interventions will [...] protection of medical procedures, or protection of district medical examiner access. Outcome: Progressing * Plan of Care - Shanel Shen RN - 10/27/2024 9:00 AM EDT Problem: Non-violent, hne-yftx-kvbazqoreci restraints Description: Less restrictive alternative interventions will [...] - 10/26/2024 7:41 PM EDT Problem: Non-violent, ika-keql-pdghfrbacbd restraints Description: Less restrictive alternative interventions will [...] protection of medical procedures, or protection of district medical examiner access. Outcome: Not Progressing Patient in bilateral [...] restraint flowsheet for further documentation. Problem: Non-violent, krs-zldy-pxazswxiqhr restraints Description: Less restrictive alternative interventions will [...] protection of medical procedures, or protection of district medical examiner access. Outcome: Progressing * Plan of Care [...] Routine Acute kidney injury superimposed on CKD ([facility]) Release Upon Ordering for 1 Occurrences starting 10/27/2024 Fungus culture Microbiology Routine Acute kidney injury superimposed on CKD ([facility]) Release Upon Ordering for 1 Occurrences starting 10/27/2024 Routine Culture plus Stain Microbiology Routine Acute kidney injury superimposed on CKD ([facility]) Release Upon Ordering for 1 Occurrences starting [...] Routine 10/31/2024 11:59 AM EDT US DUPLEX [id number] COMPLETE Routine 10/31/2024 10:19 AM EDT US [...] Routine 10/28/2024 5:31 PM EDT US DUPLEX [id number] COMPLETE STAT 10/28/2024 4:23 PM EDT US [...] Routine 10/27/2024 10:00 AM EDT US DUPLEX [id number] COMPLETE STAT 10/27/2024 9:51 AM EDT US [...] Acute kidney injury superimposed on CKD (CMS-HCC) DC RENAL ALTRNSPLJ IMPLTJ GRF W/ENROLLMENT NURSE NEPHRECTOMY 10/27/2024 2:32 AM EDT Acute kidney [...] - 100 mg/dL 11/02/2024 5:45 PM EDT [facility] Blood 11/02/2024 5:44 PM EDT 11/02/2024 5:45 PM EDT us Harvey Domínguez III, MD POINT OF CARE TEST ORDERABLES Final Result [facility] [address] * (ABNORMAL) POC Glucose Monitoring Device (11/02/2024 3:34 PM EDT) POC Glucose Monitoring Device 208(H) 70 - 100 mg/dL 11/02/2024 3:35 PM EDT [facility] Blood 11/02/2024 3:34 PM EDT 11/02/2024 3:35 PM EDT Harvey Domínguez III, MD POINT OF CARE TEST ORDERABLES Final Result [facility] [address] * (ABNORMAL) POC Glucose Monitoring Device (11/02/2024 1:18 PM EDT) POC Glucose Monitoring Device 225(H) 70 - 100 mg/dL 11/02/2024 1:19 PM EDT [facility] Blood 11/02/2024 1:18 PM EDT 11/02/2024 1:19 PM EDT Harvey Domínguez III, MD POINT OF CARE TEST ORDERABLES Final Result Performing Organization Address [facility] Co de Phone Number [facility] [address] [place] [address]. [address] * (ABNORMAL) POC Glucose Monitoring Device (11/02/2024 8:59 AM EDT) POC Glucose Monitoring Device 129(H) 70 - 100 mg/dL 11/02/2024 9:00 AM EDT [facility] Blood 11/02/2024 8:59 AM EDT 11/02/2024 9:00 AM EDT Harvey Domínguez III, MD POINT OF CARE TEST ORDERABLES Final Result Performing Organization Address City/[facility] Co de Phone Number [facility] [address] * Tacrolimus level (11/02/2024 5:53 AM EDT) Tacrolimus (LC-MS) 7.4 3.0 - 15.0 ng/mL 11/02/2024 2:23 PM EDT [facility] Comment:Performed via liquid chromatography tandem mass spectrometry. Detection limit: 1 ng/mL. Individual target concentrations may vary due to target organ and time after transplant. This test has been developed and its performance characteristics determined by [facility] which is certified under the [...] PharmD LAB BLOOD ORDERABLES Denisse valle Result [facility] [address] [place] [address], [facility] * (ABNORMAL) Renal Function Panel w/EGFR (11/02/2024 5:53 AM EDT) Sodium 140 133 - 146 mmol/L 11/02/2024 6:47 AM EDT [facility] Potassium 3.3(L) 3.5 - 5.3 mmol/L 11/02/2024 6:47 AM EDT [facility] Chloride 107 98 - 110 mmol/L 11/02/2024 6:47 AM EDT [facility] CO2 25 21 - 33 mmol/L 11/02/2024 6:47 AM EDT [facility] Anion Gap 8 3 - 16 mmol/L 11/02/2024 6:47 AM EDT [facility] BUN 31(H) 7 - 25 mg/dL 11/02/2024 6:47 AM EDT [facility] Creatinine 1.08 0.60 - 1.30 mg/dL 11/02/2024 6:47 AM EDT [facility] Glucose 150(H) 70 - 100 mg/dL 11/02/2024 6:47 AM EDT [facility] Calcium 7.8(L) 8.6 - 10.3 mg/dL 11/02/2024 6:47 AM EDT [facility] Phosphorus 2.0(L) 2.1 - 4.7 mg/dL 11/02/2024 6:47 AM EDT [facility] Albumin 3.2(L) 3.5 - 5.7 g/dL 11/02/2024 6:47 AM EDT [facility] Osmolality, Calculated 299 278 - 305 mOsm/kg 11/02/2024 6:47 AM EDT [facility] EGFR 88 11/02/2024 6:47 AM EDT [facility] Comment:As of 2021, [...] 5:53 AM EDT 11/02/2024 6:12 AM EDT [employer] PRENATAL GENETIC COUNSELOR LAB BLOOD ORDERABLES Denisse l Result Performing Organization Address City/[facility]/ZIP Co de Phone Number [facility] [address] [place] [address] * (ABNORMAL) Magnesium (11/02/2024 5:53 AM EDT) Magnesium 1.3(L) 1.5 - 2.5 mg/dL 11/02/2024 6:47 AM EDT [facility] Plasma 11/02/2024 5:53 AM EDT 11/02/2024 6:12 AM EDT [employer] PRENATAL GENETIC COUNSELOR LAB BLOOD ORDERABLES Denisse l Result Performing Organization Address [facility]/ZIP Co de Phone Number [facility] [address] * (ABNORMAL) Hepatic Function Panel (11/02/2024 5:53 AM EDT) Total Bilirubin 1.6(H) 0.0 - 1.5 mg/dL 11/02/2024 6:47 AM EDT [facility] Bilirubin, Direct 0.81(H) 0.00 - 0.40 mg/dL 11/02/2024 6:47 AM EDT [facility] AST 30 13 - 39 U/L 11/02/2024 6:47 AM EDT [facility] ALT 66(H) 7 - 52 U/L 11/02/2024 6:47 AM EDT [facility] Alkaline Phosphatase 126(H) 36 - 125 U/L 11/02/2024 6:47 AM EDT [facility] Total Protein 4.6(L) 6.4 - 8.9 g/dL 11/02/2024 6:47 AM EDT [facility] Albumin 3.2(L) 3.5 - 5.7 g/dL 11/02/2024 6:47 AM EDT [facility] Bilirubin, Indirect 0.79 0.00 - 1.10 mg/dL 11/02/2024 6:47 AM EDT [facility] Plasma 11/02/2024 5:53 AM EDT 11/02/2024 6:12 AM EDT Beata Horner [facility] BLOOD ORDERABLES Denisse valle Result Performing Organization Address City/State/[facility] Co de Phone Number [facility] [address] * (ABNORMAL) CBC (11/02/2024 5:53 AM EDT) WBC 5.8 3.8 - 10.8 10E3/uL 11/02/2024 6:21 AM EDT [facility] RBC 3.12(L) 4.20 - 5.80 10E6/uL 11/02/2024 6:21 AM EDT [facility] Hemoglobin 9.2(L) 13.2 - 17.1 g/dL 11/02/2024 6:21 AM EDT [facility] Hematocrit 27.5(L) 38.5 - 50.0 % 11/02/2024 6:21 AM EDT [facility] MCV 87.9 80.0 - 100.0 fL 11/02/2024 6:21 AM EDT [facility] MCH 29.5 27.0 - 33.0 pg 11/02/2024 6:21 AM EDT [facility] MCHC 33.5 32.0 - 36.0 g/dL 11/02/2024 6:21 AM EDT [facility] RDW 17.5(H) 11.0 - 15.0 % 11/02/2024 6:21 AM EDT [facility] Platelets 61(L) 140 - 400 10E3/uL 11/02/2024 6:21 AM EDT [facility] MPV 7.9 7.5 - 11.5 fL 11/02/2024 6:21 AM EDT [facility] Whole Blood 11/02/2024 5:53 AM EDT 11/02/2024 6:12 AM EDT us Beata Horner [facility] BLOOD ORDERABLES Denisse l Result [facility] [address] * (ABNORMAL) POC Glucose Monitoring Device (11/01/2024 9:26 PM EDT) POC Glucose Monitoring Device 199(H) 70 - 100 mg/dL 11/01/2024 9:27 PM EDT [facility] Blood 11/01/2024 9:26 PM EDT 11/01/2024 9:27 PM EDT Harvey Domínguez III, MD POINT OF CARE TEST ORDERABLES Final Result [facility] [address] * (ABNORMAL) POC Glucose Monitoring Device (11/01/2024 5:04 PM EDT) POC Glucose Monitoring Device 255(H) 70 - 100 mg/dL 11/01/2024 5:05 PM EDT [facility] Blood 11/01/2024 5:04 PM EDT 11/01/2024 5:05 PM EDT Harvey Domínguez III, MD POINT OF CARE TEST ORDERABLES Final Result [facility] [address] [place] [address], [facility] * (ABNORMAL) Renal Function Panel w/EGFR, STAT (11/01/2024 2:17 PM EDT) Sodium 139 133 - 146 mmol/L 11/01/2024 3:10 PM EDT [facility] Potassium 3.3(L) 3.5 - 5.3 mmol/L 11/01/2024 3:10 PM EDT [facility] Chloride 107 98 - 110 mmol/L 11/01/2024 3:10 PM EDT [facility] CO2 24 21 - 33 mmol/L 11/01/2024 3:10 PM EDT [facility] Anion Gap 8 3 - 16 mmol/L 11/01/2024 3:10 PM EDT [facility] BUN 35(H) 7 - 25 mg/dL 11/01/2024 3:10 PM EDT [facility] Creatinine 1.22 0.60 - 1.30 mg/dL 11/01/2024 3:10 PM EDT [facility] Glucose 203(H) 70 - 100 mg/dL 11/01/2024 3:10 PM EDT [facility] Calcium 8.3(L) 8.6 - 10.3 mg/dL 11/01/2024 3:10 PM EDT [facility] Phosphorus 2.2 2.1 - 4.7 mg/dL 11/01/2024 3:10 PM EDT [facility] Albumin 3.4(L) 3.5 - 5.7 g/dL 11/01/2024 3:10 PM EDT [facility] Osmolality, Calculated 302 278 - 305 mOsm/kg 11/01/2024 3:10 PM EDT [facility] EGFR 76 11/01/2024 3:10 PM EDT [facility] Comment:As of 2021, [...] ORDERABLES Final Result Performing Organization Address City/State/[facility] Co de Phone Number [facility] [address] [place] [address], [facility] * X-ray Portable Abdomen AP view (11/01/2024 [...] visualized. Moderate colonic stool burden. Procedure Note Anglican, Shakib, MD - 11/01/2024 EXAM: XR PORTABLE [...] - 100 mg/dL 11/01/2024 12:23 PM EDT [facility] Blood 11/01/2024 12:2 2 PM EDT 11/01/2024 12:23 PM EDT Harvey Domínguez III, MD POINT OF CARE TEST ORDERABLES Final Result Performing Organization Address City/State/[facility] Co de Phone Number [facility] [address] [place], [place] [address] * (ABNORMAL) POC Glucose Monitoring Device (11/01/2024 8:50 AM EDT) POC Glucose Monitoring Device 175(H) 70 - 100 mg/dL 11/01/2024 8:51 AM EDT [facility] Blood 11/01/2024 8:50 AM EDT 11/01/2024 8:51 AM EDT Harvey Domínguez III, MD POINT OF CARE TEST ORDERABLES Final Result [facility] [address] [facility]. [address] * Tacrolimus level (11/01/2024 6:01 AM EDT) Pathologist [facility] Tacrolimus (LC-MS) 7.5 3.0 - 15.0 ng/mL 11/01/2024 12:14 PM EDT [facility] Comment:Performed via liquid chromatography tandem mass spectrometry. Detection limit: 1 ng/mL. Individual target concentrations may vary due to target organ and time after transplant. This test has been developed and its performance characteristics determined by [facility] which is certified under the [...] Result Performing Organization Address [facility] Co de Phone Number [facility] [address] [facility]. [address] * (ABNORMAL) Renal Function Panel w/EGFR (11/01/2024 6:01 AM EDT) Pathologist [facility] Sodium 139 133 - 146 mmol/L 11/01/2024 6:57 AM EDT [facility] Potassium 3.3(L) 3.5 - 5.3 mmol/L 11/01/2024 6:57 AM EDT [facility] Chloride 108 98 - 110 mmol/L 11/01/2024 6:57 AM EDT [facility] CO2 22 21 - 33 mmol/L 11/01/2024 6:57 AM EDT [facility] Anion Gap 9 3 - 16 mmol/L 11/01/2024 6:57 AM EDT [facility] BUN 37(H) 7 - 25 mg/dL 11/01/2024 6:57 AM EDT [facility] Creatinine 1.30 0.60 - 1.30 mg/dL 11/01/2024 6:57 AM EDT [facility] Glucose 163(H) 70 - 100 mg/dL 11/01/2024 6:57 AM EDT [facility] Calcium 8.2(L) 8.6 - 10.3 mg/dL 11/01/2024 6:57 AM EDT [facility] Phosphorus 2.9 2.1 - 4.7 mg/dL 11/01/2024 6:57 AM EDT [facility] Albumin 3.1(L) 3.5 - 5.7 g/dL 11/01/2024 6:57 AM EDT [facility] Osmolality, Calculated 300 278 - 305 mOsm/kg 11/01/2024 6:57 AM EDT [facility] EGFR 71 11/01/2024 6:57 AM EDT [facility] Comment:As of 2021, [...] 11/01/2024 6:20 AM EDT us Beata Horner PRENATAL GENETIC COUNSELOR LAB BLOOD ORDERABLES Denisse valle Result [facility] [address] [place] [address], [facility] * Magnesium (11/01/2024 6:01 AM EDT) Magnesium 1.5 1.5 - 2.5 mg/dL 11/01/2024 6:57 AM EDT [facility] Plasma 11/01/2024 6:01 AM EDT 11/01/2024 6:20 AM EDT Beata Horner PRENATAL GENETIC COUNSELOR LAB BLOOD ORDERABLES Denisse l Result Performing Organization Address [facility] Co de Phone Number [facility] [address] * (ABNORMAL) Hepatic Function Panel (11/01/2024 6:01 AM EDT) Total Bilirubin 2.0(H) 0.0 - 1.5 mg/dL 11/01/2024 6:57 AM EDT [facility] Bilirubin, Direct 1.06(H) 0.00 - 0.40 mg/dL 11/01/2024 6:57 AM EDT [facility] AST 21 13 - 39 U/L 11/01/2024 6:57 AM EDT [facility] ALT 62(H) 7 - 52 U/L 11/01/2024 6:57 AM EDT [facility] Alkaline Phosphatase 114 36 - 125 U/L 11/01/2024 6:57 AM EDT [facility] Total Protein 4.6(L) 6.4 - 8.9 g/dL 11/01/2024 6:57 AM EDT [facility] Albumin 3.1(L) 3.5 - 5.7 g/dL 11/01/2024 6:57 AM EDT [facility] Bilirubin, Indirect 0.94 0.00 - 1.10 mg/dL 11/01/2024 6:57 AM EDT [facility] Plasma 11/01/2024 6:01 AM EDT 11/01/2024 6:20 AM EDT Beata Horner PRENATAL GENETIC COUNSELOR LAB BLOOD ORDERABLES Denisse l Result [facility] [address] [facility]. [address] * (ABNORMAL) CBC (11/01/2024 6:01 AM EDT) WBC 5.9 3.8 - 10.8 10E3/uL 11/01/2024 6:29 AM EDT [facility] RBC 3.19(L) 4.20 - 5.80 10E6/uL 11/01/2024 6:29 AM EDT [facility] Hemoglobin 9.5(L) 13.2 - 17.1 g/dL 11/01/2024 6:29 AM EDT [facility] Hematocrit 27.8(L) 38.5 - 50.0 % 11/01/2024 6:29 AM EDT [facility] MCV 87.1 80.0 - 100.0 fL 11/01/2024 6:29 AM EDT [facility] MCH 29.9 27.0 - 33.0 pg 11/01/2024 6:29 AM EDT [facility] MCHC 34.3 32.0 - 36.0 g/dL 11/01/2024 6:29 AM EDT [facility] RDW 17.4(H) 11.0 - 15.0 % 11/01/2024 6:29 AM EDT [facility] Platelets 56(L) 140 - 400 10E3/uL 11/01/2024 6:29 AM EDT [facility] MPV 8.3 7.5 - 11.5 fL 11/01/2024 6:29 AM EDT [facility] Whole Blood 11/01/2024 6:01 AM EDT 11/01/2024 6:19 AM EDT us Beata Horner PRENATAL GENETIC COUNSELOR LAB BLOOD ORDERABLES Denisse l Result [facility] [address] [place] [address], [facility] * (ABNORMAL) POC Glucose Monitoring Device (10/31/2024 9:15 PM EDT) POC Glucose Monitoring Device 171(H) 70 - 100 mg/dL 10/31/2024 9:15 PM EDT [facility] Blood 10/31/2024 9:15 PM EDT 10/31/2024 9:15 PM EDT Harvey Domínguez III, MD POINT OF CARE TEST ORDERABLES Final Result [facility] [address] * (ABNORMAL) POC Glucose Monitoring Device (10/31/2024 5:56 PM EDT) POC Glucose Monitoring Device 179(H) 70 - 100 mg/dL 10/31/2024 5:57 PM EDT [facility] Blood 10/31/2024 5:56 PM EDT 10/31/2024 5:57 PM EDT Harvey Domínguez III, MD POINT OF CARE TEST ORDERABLES Final Result Performing Organization Address City/[facility] Co de Phone Number [facility] [address] * CT Abdomen and Pelvis WO [...] Adrenal gland: No focal nodule seen. Kidneys: [place] kidneys noted with nonobstructing calcifications on the right. Findings of postsurgical changes in the left k[place] kidney. Mild right hydronephrosis without an obstructive [...] Adrenal gland: No focal nodule seen. Kidneys: [place] kidneys noted with nonobstructing calcifications on theright. Findings of postsurgical changes in the left kake kidney. Mildright hydronephrosis without an obstructive course [...] QT: 400 ms QTc: 456 ms P [place]: 49 degrees R [place]: 3 degrees T [place]: 14 degrees Diagnosis Line: NORMAL SINUS RHYTHM ^ NORMAL ECG ^ ^ Confirmed by MD REID JAMES ([id number]) on 11/02/2024 6:56:52 AM Priti Geiger CNP ECG ORDERABLES Final Result [facility] * (ABNORMAL) Urinalysis w/Rfl to Microscopic (10/31/2024 1:18 PM EDT) Color, UA Straw Yellow,Straw 10/31/2024 1:46 PM EDT [facility] Clarity, UA Clear Clear 10/31/2024 1:46 PM EDT [facility] Specific [place], UA 1.013 1.005 - 1.035 10/31/2024 1:46 PM EDT [facility] pH, UA 6.5 5.0 - 8.0 10/31/2024 1:46 PM EDT [facility] Protein, UA Negative Negative mg/dL 10/31/2024 1:46 PM EDT [facility] Glucose, UA Negative Negative mg/dL 10/31/2024 1:46 PM EDT [facility] Ketones, UA Negative Negative mg/dL 10/31/2024 1:46 PM EDT [facility] Bilirubin, UA Negative Negative 10/31/2024 1:46 PM EDT [facility] Blood, UA Large(A) Negative 10/31/2024 1:46 PM EDT [facility] Nitrite, UA Negative Negative 10/31/2024 1:46 PM EDT [facility] Urobilinogen, UA <2.0 0.2 - 1.9 mg/dL 10/31/2024 1:46 PM EDT [facility] Leukocyte Esterase, UA Negative Negative 10/31/2024 1:46 PM EDT [facility] RBC, UA >100(H) 0 - 3 /HPF 10/31/2024 1:46 PM EDT [facility] WBC, UA 3 0 - 5 /HPF 10/31/2024 1:46 PM EDT [facility] Hyaline Casts, UA 3(H) 0 - 2 /LPF 10/31/2024 1:46 PM EDT [facility] Urine 10/31/2024 1:18 PM EDT 10/31/2024 1:32 PM EDT Priti Geiger [facility] URINE ORDERABLES Final Result Performing Organization Address City/State/[facility] Co de Phone Number [facility] [address] * (ABNORMAL) Post Kidney Transplant Urine Culture (10/31/2024 1:18 PM EDT) Culture Result Enterococcus faecium, Vancomycin Resistant(A) [facility] Comment: 1,000- <10,000 cfu/mL Identified by [...] SARMAD >=32: Resistant Comment:See Results Priti Geiger PRENATAL GENETIC COUNSELOR MICROBIOLOGY - GENERAL ORDERA BLES Final Result Performing Organization Address [facility] Co de Phone Number [facility] [address] * (ABNORMAL) POC Glucose Monitoring Device (10/31/2024 11:59 AM EDT) [facility] POC Glucose Monitoring Device 130(H) 70 - 100 mg/dL 10/31/2024 12:21 PM EDT [facility] Blood 10/31/2024 11:5 9 AM EDT 10/31/2024 12:21 PM EDT Harvey Domínguez III, MD POINT OF CARE TEST ORDERABLES Final Result Performing Organization Address [facility] Co de Phone Number [facility] [address] [facility]. [address] * US Abdomen Limited (10/31/2024 10:19 [...] EXAM: US ABDOMEN LIMITED EXAM: US DUPLEX [id number] COMPLETE INDICATION: Post-op liver transplant COMPARISON: None [...] visualized secondary to poor acoustic windows. The kake right kidney measures 11.6 cm in length. [...] EXAM: US ABDOMEN LIMITED EXAM: US DUPLEX [id number] COMPLETE INDICATION: Post-op liver transplant COMPARISON: None [...] well visualized secondary to poor acousticwindows. The kake right kidney measures 11.6 cm in length. [...] 10/31/2024 10:35 AM EDT us Beata Horner PRENATAL GENETIC COUNSELOR IMG US ORDERABLES Final R esult * [...] at 10/31/2024 10:29 AM EDT us Beata Horenr [facility] IMG US ORDERABLES Final R esult * US Duplex Glg-Bgp-[id number] Comp (10/31/2024 10:19 AM EDT) Anatomical Region [...] EXAM: US ABDOMEN LIMITED EXAM: US DUPLEX [id number] COMPLETE INDICATION: Post-op liver transplant COMPARISON: None [...] visualized secondary to poor acoustic windows. The kake right kidney measures 11.6 cm in length. [...] EXAM: US ABDOMEN LIMITED EXAM: US DUPLEX [id number] COMPLETE INDICATION: Post-op liver transplant COMPARISON: None [...] well visualized secondary to poor acousticwindows. The kake right kidney measures 11.6 cm in length. [...] at 10/31/2024 10:35 AM EDT Beata Horner PRENATAL GENETIC COUNSELOR IMG US ORDERABLES Final R esult * ECG 12-lead (MUSE) (10/31/2024 8:57 AM EDT) 10/31/2024 8:57 AM EDT Narrative MUSE - 11/01/2024 9:21 AM EDT Ventricular Rate: 83 BPM Atrial Rate: 83 BPM P-R Interval: 168 ms QRS Duration: 102 ms QT: 392 ms QTc: 460 ms P [place]: 64 degrees R [place]: -18 degrees T [place]: 7 degrees Diagnosis Line: NORMAL SINUS RHYTHM ^ NORMAL ECG ^ ^ Confirmed by MD JOE, ANISIIA ([id number]) on 11/01/2024 9:21:13 AM Priti Geiger [facility] ECG ORDERABLES Final Result MUSE * (ABNORMAL) POC Glucose Monitoring Device (10/31/2024 8:44 AM EDT) [facility] POC Glucose Monitoring Device 145(H) 70 - 100 mg/dL 10/31/2024 8:45 AM EDT [facility] Blood 10/31/2024 8:44 AM EDT 10/31/2024 8:44 AM EDT Harvey Domínguez III, MD POINT OF CARE TEST ORDERABLES Final Result [facility] [address] [place] [address], [facility] * Tacrolimus level (10/31/2024 6:40 AM EDT) Pathologist [facility] Tacrolimus (LC-MS) 8.4 3.0 - 15.0 ng/mL 10/31/2024 10:05 AM EDT [facility] Comment:Performed via liquid chromatography tandem mass spectrometry. Detection limit: 1 ng/mL. Individual target concentrations may vary due to target organ and time after transplant. This test has been developed and its performance characteristics determined by [facility] which is certified under the [...] PharmD LAB BLOOD ORDERABLES Denisse valle Result [facility] [address] * (ABNORMAL) Renal Function Panel w/EGFR (10/31/2024 6:40 AM EDT) [facility] Sodium 141 133 - 146 mmol/L 10/31/2024 8:09 AM EDT [facility] Potassium 3.5 3.5 - 5.3 mmol/L 10/31/2024 8:09 AM EDT [facility] Chloride 111(H) 98 - 110 mmol/L 10/31/2024 8:09 AM EDT [facility] CO2 20(L) 21 - 33 mmol/L 10/31/2024 8:09 AM EDT [facility] Anion Gap 10 3 - 16 mmol/L 10/31/2024 8:09 AM EDT [facility] BUN 54(H) 7 - 25 mg/dL 10/31/2024 8:09 AM EDT [facility] Creatinine 1.75(H) 0.60 - 1.30 mg/dL 10/31/2024 8:09 AM EDT [facility] Glucose 136(H) 70 - 100 mg/dL 10/31/2024 8:09 AM EDT [facility] Calcium 8.7 8.6 - 10.3 mg/dL 10/31/2024 8:09 AM EDT [facility] Phosphorus 4.1 2.1 - 4.7 mg/dL 10/31/2024 8:09 AM EDT [facility] Albumin 3.2(L) 3.5 - 5.7 g/dL 10/31/2024 8:09 AM EDT [facility] Osmolality, Calculated 309(H) 278 - 305 mOsm/kg 10/31/2024 8:09 AM EDT [facility] EGFR 50 10/31/2024 8:09 AM EDT [facility] Comment:As of 2021, [...] EDT 10/31/2024 7:35 AM EDT Beata Hor[facility] BLOOD ORDERABLES Denisse l Result [facility] [address] [place] [address], [facility] * Magnesium (10/31/2024 6:40 AM EDT) Magnesium 1.8 1.5 - 2.5 mg/dL 10/31/2024 8:09 AM EDT [facility] Plasma 10/31/2024 6:40 AM EDT 10/31/2024 7:35 AM EDT Be[facility] Hor[facility] BLOOD ORDERABLES Denisse l Result Performing Organization Address City/[facility]/ZIP Co de Phone Number [facility] [address] * (ABNORMAL) Hepatic Function Panel (10/31/2024 6:40 AM EDT) Total Bilirubin 2.7(H) 0.0 - 1.5 mg/dL 10/31/2024 8:09 AM EDT [facility] Bilirubin, Direct 1.57(H) 0.00 - 0.40 mg/dL 10/31/2024 8:09 AM EDT [facility] AST 26 13 - 39 U/L 10/31/2024 8:09 AM EDT [facility] ALT 68(H) 7 - 52 U/L 10/31/2024 8:09 AM EDT [facility] Alkaline Phosphatase 112 36 - 125 U/L 10/31/2024 8:09 AM EDT [facility] Total Protein 4.7(L) 6.4 - 8.9 g/dL 10/31/2024 8:09 AM EDT [facility] Albumin 3.2(L) 3.5 - 5.7 g/dL 10/31/2024 8:09 AM EDT [facility] Bilirubin, Indirect 1.13(H) 0.00 - 1.10 mg/dL 10/31/2024 8:09 AM EDT [facility] Plasma 10/31/2024 6:40 AM EDT 10/31/2024 7:35 AM EDT Beata Horner [employer] LAB BLOOD ORDERABLES Denisse l Result [facility] [address] [facility]. [address] * (ABNORMAL) CBC (10/31/2024 6:40 AM EDT) WBC 6.0 3.8 - 10.8 10E3/uL 10/31/2024 8:05 AM EDT [facility] RBC 3.14(L) 4.20 - 5.80 10E6/uL 10/31/2024 8:05 AM EDT [facility] Hemoglobin 9.6(L) 13.2 - 17.1 g/dL 10/31/2024 8:05 AM EDT [facility] Hematocrit 27.5(L) 38.5 - 50.0 % 10/31/2024 8:05 AM EDT [facility] MCV 87.6 80.0 - 100.0 fL 10/31/2024 8:05 AM EDT [facility] MCH 30.7 27.0 - 33.0 pg 10/31/2024 8:05 AM EDT [facility] MCHC 35.0 32.0 - 36.0 g/dL 10/31/2024 8:05 AM EDT [facility] RDW 17.9(H) 11.0 - 15.0 % 10/31/2024 8:05 AM EDT [facility] Platelets 44(L) 140 - 400 10E3/uL 10/31/2024 8:05 AM EDT [facility] Comment: CNV Specimen checked for clots. None detected. MPV 8.9 7.5 - 11.5 fL 10/31/2024 8:05 AM EDT [facility] Whole Blood 10/31/2024 6:40 AM EDT 10/31/2024 7:34 AM EDT us Beata Horner [facility] BLOOD ORDERABLES Denisse l Result Performing Organization Address City/State/[facility] Co de Phone Number [facility] [address] * (ABNORMAL) POC Glucose Monitoring Device (10/30/2024 9:01 PM EDT) POC Glucose Monitoring Device 144(H) 70 - 100 mg/dL 10/30/2024 9:02 PM EDT [facility] Blood 10/30/2024 9:01 PM EDT 10/30/2024 9:01 PM EDT us Harvey Domínguez III, MD POINT OF CARE TEST ORDERABLES Final Result [facility] [address] * (ABNORMAL) POC Glucose Monitoring Device (10/30/2024 5:37 PM EDT) POC Glucose Monitoring Device 124(H) 70 - 100 mg/dL 10/30/2024 5:47 PM EDT [facility] Blood 10/30/2024 5:37 PM EDT 10/30/2024 5:47 PM EDT us Harvey Domínguez III, MD POINT OF CARE TEST ORDERABLES Final Result Performing Organization Address City/[facility] Co de Phone Number [facility] [address] [facility]. [address] * (ABNORMAL) POC Glucose Monitoring Device (10/30/2024 7:26 AM EDT) POC Glucose Monitoring Device 150(H) 70 - 100 mg/dL 10/30/2024 7:27 AM EDT [facility] Blood 10/30/2024 7:26 AM EDT 10/30/2024 7:27 AM EDT us Harvey Domínguez III, MD POINT OF CARE TEST ORDERABLES Final Result Performing Organization Address City/[facility]/ZIP Co de Phone Number [facility] [address] [facility]. [address] * Tacrolimus level (10/30/2024 7:13 AM EDT) Tacrolimus (LC-MS) 9.5 3.0 - 15.0 ng/mL 10/30/2024 2:53 PM EDT [facility] Comment:Performed via liquid chromatography tandem mass spectrometry. Detection limit: 1 ng/mL. Individual target concentrations may vary due to target organ and time after transplant. This test has been developed and its performance characteristics determined by [facility] which is certified under the [...] 7:13 AM EDT 10/30/2024 7:26 AM EDT Appy Couple [facility] BLOOD ORDERABLES Final Re sult Performing Organization Address City/[facility] Co de Phone Number [facility] [address] * ECG 12-lead (MUSE) (10/30/2024 6:51 AM EDT) 10/30/2024 6:51 AM EDT Narrative MUSE - 11/01/2024 9:21 AM EDT Ventricular Rate: 92 BPM Atrial Rate: 92 BPM P-R Interval: 174 ms QRS Duration: 96 ms QT: 376 ms QTc: 464 ms P [place]: 54 degrees R [place]: -24 degrees T [place]: 11 degrees Diagnosis Line: NORMAL SINUS RHYTHM ^ NORMAL ECG ^ ^ Confirmed by MD JOE, OTIS ([id number]) on 11/01/2024 9:21:09 AM Appy Couple [facility] ECG ORDERABLES Final Result Performing Organization Address City/[facility] Co de Phone Number MUSE * (ABNORMAL) Renal Function Panel w/EGFR (10/30/2024 5:41 AM EDT) Sodium 140 133 - 146 mmol/L 10/30/2024 6:18 AM EDT [facility] Potassium 3.8 3.5 - 5.3 mmol/L 10/30/2024 6:18 AM EDT [facility] Chloride 111(H) 98 - 110 mmol/L 10/30/2024 6:18 AM EDT [facility] CO2 17(L) 21 - 33 mmol/L 10/30/2024 6:18 AM EDT [facility] Anion Gap 12 3 - 16 mmol/L 10/30/2024 6:18 AM EDT [facility] BUN 62(H) 7 - 25 mg/dL 10/30/2024 6:18 AM EDT [facility] Creatinine 1.96(H) 0.60 - 1.30 mg/dL 10/30/2024 6:18 AM EDT [facility] Glucose 116(H) 70 - 100 mg/dL 10/30/2024 6:18 AM EDT [facility] Calcium 9.0 8.6 - 10.3 mg/dL 10/30/2024 6:18 AM EDT [facility] Phosphorus 4.6 2.1 - 4.7 mg/dL 10/30/2024 6:18 AM EDT [facility] Albumin 3.2(L) 3.5 - 5.7 g/dL 10/30/2024 6:18 AM EDT [facility] Osmolality, Calculated 309(H) 278 - 305 mOsm/kg 10/30/2024 6:18 AM EDT [facility] EGFR 43 10/30/2024 6:18 AM EDT [facility] Comment:As of 2021, [...] EDT 10/30/2024 5:47 AM EDT Beata Horner [facility] BLOOD ORDERABLES Denisse valle Result [facility] [address] * Magnesium (10/30/2024 5:41 AM EDT) Magnesium 2.2 1.5 - 2.5 mg/dL 10/30/2024 6:18 AM EDT [facility] Plasma 10/30/2024 5:41 AM EDT 10/30/2024 5:47 AM EDT Beata Horner [facility] BLOOD ORDERABLES Denisse l Result Performing Organization Address City/[facility]/ZIP Co de Phone Number [facility] [address] [facility]. [address] * (ABNORMAL) Hepatic Function Panel (10/30/2024 5:41 AM EDT) Total Bilirubin 3.6(H) 0.0 - 1.5 mg/dL 10/30/2024 6:18 AM EDT [facility] Bilirubin, Direct 1.95(H) 0.00 - 0.40 mg/dL 10/30/2024 6:18 AM EDT [facility] AST 33 13 - 39 U/L 10/30/2024 6:18 AM EDT [facility] ALT 71(H) 7 - 52 U/L 10/30/2024 6:18 AM EDT [facility] Alkaline Phosphatase 80 36 - 125 U/L 10/30/2024 6:18 AM EDT [facility] Total Protein 4.8(L) 6.4 - 8.9 g/dL 10/30/2024 6:18 AM EDT [facility] Albumin 3.2(L) 3.5 - 5.7 g/dL 10/30/2024 6:18 AM EDT [facility] Bilirubin, Indirect 1.65(H) 0.00 - 1.10 mg/dL 10/30/2024 6:18 AM EDT [facility] Plasma 10/30/2024 5:41 AM EDT 10/30/2024 5:47 AM EDT Beata Horner [facility] BLOOD ORDERABLES Denisse l Result [facility] [address] [facility]. [address] * (ABNORMAL) CBC (10/30/2024 5:41 AM EDT) Pathologist [facility] WBC 8.1 3.8 - 10.8 10E3/uL 10/30/2024 8:06 AM EDT [facility] RBC 3.29(L) 4.20 - 5.80 10E6/uL 10/30/2024 8:06 AM EDT [facility] Hemoglobin 10.1(L) 13.2 - 17.1 g/dL 10/30/2024 8:06 AM EDT [facility] Hematocrit 28.8(L) 38.5 - 50.0 % 10/30/2024 8:06 AM EDT [facility] MCV 87.6 80.0 - 100.0 fL 10/30/2024 8:06 AM EDT [facility] MCH 30.6 27.0 - 33.0 pg 10/30/2024 8:06 AM EDT [facility] MCHC 34.9 32.0 - 36.0 g/dL 10/30/2024 8:06 AM EDT [facility] RDW 18.1(H) 11.0 - 15.0 % 10/30/2024 8:06 AM EDT [facility] Platelets 44(L) 140 - 400 10E3/uL 10/30/2024 8:06 AM EDT [facility] Comment: CNV Specimen checked for clots. None detected. MPV 8.3 7.5 - 11.5 fL 10/30/2024 8:06 AM EDT [facility] Whole Blood 10/30/2024 5:41 AM EDT 10/30/2024 5:50 AM EDT us Beata Horner [employer] LAB BLOOD ORDERABLES Denisse valle Result [facility] [address] [facility]. [address] * (ABNORMAL) POC Glucose Monitoring Device (10/29/2024 10:18 PM EDT) [facility] POC Glucose Monitoring Device 140(H) 70 - 100 mg/dL 10/29/2024 10:18 PM EDT [facility] Blood 10/29/2024 10:1 8 PM EDT 10/29/2024 10:18 PM EDT us Harvey Domínguez III, MD POINT OF CARE TEST ORDERABLES Final Result [facility] [address] * (ABNORMAL) POC Glucose Monitoring Device (10/29/2024 6:42 PM EDT) POC Glucose Monitoring Device 152(H) 70 - 100 mg/dL 10/29/2024 6:43 PM EDT [facility] Blood 10/29/2024 6:42 PM EDT 10/29/2024 6:43 PM EDT us Harvey Domínguez III, MD POINT OF CARE TEST ORDERABLES Final Result Performing Organization Address [facility] Co de Phone Number [facility] [address] [place], [place] [address]ue [facility]. [address] * (ABNORMAL) POC Glucose Monitoring Device (10/29/2024 11:35 AM EDT) POC Glucose Monitoring Device 130(H) 70 - 100 mg/dL 10/29/2024 11:36 AM EDT [facility] Blood 10/29/2024 11:3 5 AM EDT 10/29/2024 11:36 AM EDT us Harvey Domínguez III, MD POINT OF CARE TEST ORDERABLES Final Result Performing Organization Address City/[facility] Co de Phone Number [facility] [address] [facility]. [address] * ECG 12 lead (MUSE) (10/29/2024 9:34 AM EDT) 10/29/2024 9:34 AM EDT Narrative MUSE - 10/29/2024 10:34 PM EDT Ventricular Rate: 97 BPM Atrial Rate: 97 BPM P-R Interval: 186 ms QRS Duration: 104 ms QT: 382 ms QTc: 485 ms P [place]: 54 degrees R [place]: -21 degrees T [place]: 1 degrees Diagnosis Line: NORMAL SINUS RHYTHM ^ NORMAL ECG ^ Confirmed by JORGE MACIAS ([id number]) on 10/29/2024 10:34:50 PM Afshan Bear MD ECG ORDERABLES Final Result Performing Organization Address [facility] de Phone Number MUSE * Tacrolimus level (10/29/2024 8:08 AM EDT) Pathologist [facility] Tacrolimus (LC-MS) 10.4 3.0 - 15.0 ng/mL 10/29/2024 2:07 PM EDT [facility] Comment:Performed via liquid chromatography tandem mass spectrometry. Detection limit: 1 ng/mL. Individual target concentrations may vary due to target organ and time after transplant. This test has been developed and its performance characteristics determined by [facility] which is certified under the [...] EDT 10/29/2024 8:21 AM EDT Priti Geiger [employer] LAB BLOOD ORDERABLES Final Re sult Performing Organization Address [facility] Co de Phone Number [facility] [address] [place] [address], [facility] * Prepare RBC, leukoreduced, 1 Units (10/29/2024 6:16 AM EDT) Product Code B5462I60 [facility] Unit Number [id number] [facility] Dispense Status Presumed Transfused_PT [facility] Blood Expiration Date [id number] [facility] Coding System [id number] [facility] Blood Bank Product Shay Plata MD BLOOD BANK PRODUCT O RDERABLES Final Result [facility] * Prepare RBC, leukoreduced, 1 Units (10/29/2024 6:15 AM EDT) Product Code H0353E47 [facility] Unit Number [id number] [facility] Dispense Status Presumed Transfused_PT [facility] Blood Expiration Date [id number] [facility] Coding System [id number] [facility] Blood Bank Product Carlos Marks MD BLOOD BANK PRODUCT ORDERABL ES Final Result Performing Organization Address [facility] de Phone Number [facility] * Prepare RBC, leukoreduced, 1 Units (10/29/2024 6:15 AM EDT) Product Code C7237Y45 [facility] Unit Number [id number] [facility] Dispense Status Presumed Transfused_PT [facility] Blood Expiration Date [id number] [facility] Coding System [id number] [facility] Blood Bank Product John Moreno MD BLOOD BANK PRODUCT ORDERABLE S Final Result Performing Organization Address [facility] de Phone Number [facility] * (ABNORMAL) Renal Function Panel w/EGFR (10/29/2024 5:07 AM EDT) Sodium 144 133 - 146 mmol/L 10/29/2024 5:49 AM EDT [facility] Potassium 3.8 3.5 - 5.3 mmol/L 10/29/2024 5:49 AM EDT [facility] Chloride 113(H) 98 - 110 mmol/L 10/29/2024 5:49 AM EDT [facility] CO2 17(L) 21 - 33 mmol/L 10/29/2024 5:49 AM EDT [facility] Anion Gap 14 3 - 16 mmol/L 10/29/2024 5:49 AM EDT [facility] BUN 57(H) 7 - 25 mg/dL 10/29/2024 5:49 AM EDT [facility] Creatinine 1.93(H) 0.60 - 1.30 mg/dL 10/29/2024 5:49 AM EDT [facility] Glucose 110(H) 70 - 100 mg/dL 10/29/2024 5:49 AM EDT [facility] Calcium 9.3 8.6 - 10.3 mg/dL 10/29/2024 5:49 AM EDT [facility] Phosphorus 4.8(H) 2.1 - 4.7 mg/dL 10/29/2024 5:49 AM EDT [facility] Albumin 3.5 3.5 - 5.7 g/dL 10/29/2024 5:49 AM EDT [facility] Osmolality, Calculated 314(H) 278 - 305 mOsm/kg 10/29/2024 5:49 AM EDT [facility] EGFR 44 10/29/2024 5:49 AM EDT [facility] Comment:As of 2021, [...] EDT 10/29/2024 5:13 AM EDT Beata Horner [employer] LAB BLOOD ORDERABLES Denisse valle Result [facility] [address] * Magnesium (10/29/2024 5:07 AM EDT) Magnesium 2.1 1.5 - 2.5 mg/dL 10/29/2024 5:49 AM EDT [facility] Plasma 10/29/2024 5:07 AM EDT 10/29/2024 5:13 AM EDT Beata Horner [facility] BLOOD ORDERABLES Denisse l Result Performing Organization Address City/[facility]/ZIP Co de Phone Number [facility] [address] [facility]. [address] * (ABNORMAL) Hepatic Function Panel (10/29/2024 5:07 AM EDT) Total Bilirubin 4.2(H) 0.0 - 1.5 mg/dL 10/29/2024 5:49 AM EDT [facility] Bilirubin, Direct 2.85(H) 0.00 - 0.40 mg/dL 10/29/2024 5:49 AM EDT [facility] AST 31 13 - 39 U/L 10/29/2024 5:49 AM EDT [facility] ALT 88(H) 7 - 52 U/L 10/29/2024 5:49 AM EDT [facility] Alkaline Phosphatase 51 36 - 125 U/L 10/29/2024 5:49 AM EDT [facility] Total Protein 5.2(L) 6.4 - 8.9 g/dL 10/29/2024 5:49 AM EDT [facility] Albumin 3.5 3.5 - 5.7 g/dL 10/29/2024 5:49 AM EDT [facility] Bilirubin, Indirect 1.35(H) 0.00 - 1.10 mg/dL 10/29/2024 5:49 AM EDT [facility] Plasma 10/29/2024 5:07 AM EDT 10/29/2024 5:13 AM EDT Beata Horner [employer] LAB BLOOD ORDERABLES Denisse l Result [facility] [address] * (ABNORMAL) CBC (10/29/2024 5:07 AM EDT) WBC 7.8 3.8 - 10.8 10E3/uL 10/29/2024 5:38 AM EDT [facility] RBC 3.05(L) 4.20 - 5.80 10E6/uL 10/29/2024 5:38 AM EDT [facility] Hemoglobin 9.0(L) 13.2 - 17.1 g/dL 10/29/2024 5:38 AM EDT [facility] Hematocrit 26.7(L) 38.5 - 50.0 % 10/29/2024 5:38 AM EDT [facility] MCV 87.4 80.0 - 100.0 fL 10/29/2024 5:38 AM EDT [facility] MCH 29.7 27.0 - 33.0 pg 10/29/2024 5:38 AM EDT [facility] MCHC 33.9 32.0 - 36.0 g/dL 10/29/2024 5:38 AM EDT [facility] RDW 18.3(H) 11.0 - 15.0 % 10/29/2024 5:38 AM EDT [facility] Platelets 41(L) 140 - 400 10E3/uL 10/29/2024 5:38 AM EDT [facility] Comment: CNV Specimen checked for clots. None detected. MPV 7.5 7.5 - 11.5 fL 10/29/2024 5:38 AM EDT [facility] Whole Blood 10/29/2024 5:07 AM EDT 10/29/2024 5:13 AM EDT us Beata Horner [employer] LAB BLOOD ORDERABLES Denisse tori Result [facility] [address] * (ABNORMAL) TEG-Bypass/ECMO/Liver HN (Factor function, Platelet/Fibrin Clot Strength w/Clot Breakdown, Heparinase In All Channels) (10/29/2024 5:07 AM EDT) Citrated Kaolin Reaction Time (TEGECMOLIVER) 8.9 4.6 - 9.1 minutes 10/29/2024 7:04 AM EDT [facility] Citrated Kaolin W/Heparinase Reaction Time (TEGECMOLIVER) 7.4 4.3 - 8.3 minutes 10/29/2024 7:04 AM EDT [facility] Citrated Kaolin Maximum Amplitude (TEGECMOLIVER) 52.9 52.0 - 69.0 mm 10/29/2024 7:04 AM EDT [facility] Citrated Functional Fibrinogen W/Heparinase Maximum Amplitude(TEGEC MOLIVER) 20.7 15.0 - 34.0 mm 10/29/2024 7:04 AM EDT [facility] Citrated Rapid Teg W/Heparinase Maximum Amplitude (TEGECMOLIVER) 49.7(L) 53.0 - 69.0 mm 10/29/2024 7:04 AM EDT [facility] Citrated Kaolin w/Heparinase Percent Lysis (TEGECMOLIVER) 0.0 0.0 - 3.2 % 10/29/2024 7:04 AM EDT [facility] Whole Blood (Citrate) 10/29/2024 5:07 AM EDT 10/29/2024 5:10 AM EDT us Kemar Sahni MD LAB BLOOD ORDERABLES Final Result [facility] [address] [place] [id number] * (ABNORMAL) TEG-Bypass/ECMO/Liver HN (Factor function, Platelet/Fibrin Clot Strength w/Clot Breakdown, Heparinase In All Channels) (10/28/2024 11:55 PM EDT) Citrated Kaolin Reaction Time (TEGECMOLIVER) 8.6 4.6 - 9.1 minutes 10/29/2024 2:01 AM EDT [facility] Citrated Kaolin W/Heparinase Reaction Time (TEGECMOLIVER) 8.7(H) 4.3 - 8.3 minutes 10/29/2024 2:01 AM EDT [facility] Citrated Kaolin Maximum Amplitude (TEGECMOLIVER) 47.9(L) 52.0 - 69.0 mm 10/29/2024 2:01 AM EDT [facility] Citrated Functional Fibrinogen W/Heparinase Maximum Amplitude(TEGEC MOLIVER) 22.0 15.0 - 34.0 mm 10/29/2024 2:01 AM EDT [facility] Citrated Rapid Teg W/Heparinase Maximum Amplitude (TEGECMOLIVER) 45.9(L) 53.0 - 69.0 mm 10/29/2024 2:01 AM EDT [facility] Citrated Kaolin w/Heparinase Percent Lysis (TEGECMOLIVER) 0.0 0.0 - 3.2 % 10/29/2024 2:01 AM EDT [facility] Whole Blood (Citrate) 10/28/2024 11:55 PM EDT 10/28/2024 11:58 PM EDT Kemar Sahni MD LAB BLOOD ORDERABLES Final Result [facility] [address] * (ABNORMAL) CBC, STAT (10/28/2024 8:04 PM EDT) WBC 3.9 3.8 - 10.8 10E3/uL 10/28/2024 8:36 PM EDT [facility] RBC 2.66(L) 4.20 - 5.80 10E6/uL 10/28/2024 8:36 PM EDT [facility] Hemoglobin 8.0(L) 13.2 - 17.1 g/dL 10/28/2024 8:36 PM EDT [facility] Hematocrit 23.0(L) 38.5 - 50.0 % 10/28/2024 8:36 PM EDT [facility] MCV 86.4 80.0 - 100.0 fL 10/28/2024 8:36 PM EDT [facility] MCH 29.9 27.0 - 33.0 pg 10/28/2024 8:36 PM EDT [facility] MCHC 34.6 32.0 - 36.0 g/dL 10/28/2024 8:36 PM EDT [facility] RDW 18.6(H) 11.0 - 15.0 % 10/28/2024 8:36 PM EDT [facility] Platelets 29(L) 140 - 400 10E3/uL 10/28/2024 8:36 PM EDT [facility] Comment: CNV Specimen checked for clots. None detected. MPV 7.8 7.5 - 11.5 fL 10/28/2024 8:36 PM EDT [facility] Whole Blood 10/28/2024 8:04 PM EDT 10/28/2024 8:14 PM EDT Carlos Marks MD LAB BLOOD ORDERABLES Final Result Performing Organization Address City/[facility]/ZIP Co de Phone Number [facility] [address] * (ABNORMAL) POC Glucose Monitoring Device (10/28/2024 8:03 PM EDT) POC Glucose Monitoring Device 122(H) 70 - 100 mg/dL 10/28/2024 8:04 PM EDT [facility] Blood 10/28/2024 8:03 PM EDT 10/28/2024 8:04 PM EDT Harvey Domínguez III, MD POINT OF CARE TEST ORDERABLES Final Result [facility] [address] * (ABNORMAL) TEG-Bypass/ECMO/Liver HN (Factor function, Platelet/Fibrin Clot Strength w/Clot Breakdown, Heparinase In All Channels) (10/28/2024 6:39 PM EDT) Citrated Kaolin Reaction Time (TEGECMOLIVER) 9.0 4.6 - 9.1 minutes 10/28/2024 7:50 PM EDT [facility] Citrated Kaolin W/Heparinase Reaction Time (TEGECMOLIVER) 8.3 4.3 - 8.3 minutes 10/28/2024 7:50 PM EDT [facility] Citrated Kaolin Maximum Amplitude (TEGECMOLIVER) 47.6(L) 52.0 - 69.0 mm 10/28/2024 7:50 PM EDT [facility] Citrated Functional Fibrinogen W/Heparinase Maximum Amplitude(TEGEC MOLIVER) 20.4 15.0 - 34.0 mm 10/28/2024 7:50 PM EDT [facility] Citrated Rapid Teg W/Heparinase Maximum Amplitude (TEGECMOLIVER) 44.0(L) 53.0 - 69.0 mm 10/28/2024 7:50 PM EDT [facility] Citrated Kaolin w/Heparinase Percent Lysis (TEGECMOLIVER) 0.0 0.0 - 3.2 % 10/28/2024 7:50 PM EDT [facility] Whole Blood (Citrate) 10/28/2024 6:39 PM EDT 10/28/2024 6:42 PM EDT us Kemar Sahni MD LAB BLOOD ORDERABLES Final Result [facility] [address] * (ABNORMAL) POC Glucose Monitoring Device (10/28/2024 5:31 PM EDT) [facility] POC Glucose Monitoring Device 130(H) 70 - 100 mg/dL 10/28/2024 5:31 PM EDT [facility] Blood 10/28/2024 5:31 PM EDT 10/28/2024 5:31 PM EDT us Harvey Domínguez III, MD POINT OF CARE TEST ORDERABLES Final Result [facility] [address] * Transfuse RBC Transfusion Rate: Per dept routine (10/28/2024 5:23 PM EDT) us Shay Plata MD NURSING TREATMENT OR DERABLES - BLOOD ADMIN Final Result EXTERNAL * Transfuse RBC Transfusion Rate: Per dept routine, 1 Units (10/28/2024 5:23 PM EDT) Shay Plata MD NURSING TREATMENT OR DERABLES - BLOOD ADMIN Final Result Performing Organization Address City/[facility]/ZIP Co de Phone Number EXTERNAL [...] EXAM: US ABDOMEN LIMITED EXAM: US DUPLEX [id number] COMPLETE INDICATION: Post-op liver transplant DATE: 10/28/2024 [...] retrohepatic inferior vena cava is patent. The kake right kidney is partially visualized. A prominent [...] EXAM: US ABDOMEN LIMITED EXAM: US DUPLEX [id number] COMPLETE INDICATION: Post-op liver transplant DATE: 10/28/2024 [...] retrohepatic inferior vena cava is patent. The [place] right kidney is partially visualized. A prominent [...] ORDERABLES Fi nal Result * US Duplex [id number] (10/28/2024 4:23 PM EDT) Anatomical Region [...] EXAM: US ABDOMEN LIMITED EXAM: US DUPLEX [id number] COMPLETE INDICATION: Post-op liver transplant DATE: 10/28/2024 [...] retrohepatic inferior vena cava is patent. The [place] right kidney is partially visualized. A prominent [...] EXAM: US ABDOMEN LIMITED EXAM: US DUPLEX [id number] COMPLETE INDICATION: Post-op liver transplant DATE: 10/28/2024 [...] retrohepatic inferior vena cava is patent. The k[place] right kidney is partially visualized. A prominent [...] Wasserman MD at 10/28/2024 4:42 PM EDT [facility] Vi Plata MD [facility] [place] ORDERABLES Fi nal Result * (ABNORMAL) CBC, STAT (10/28/2024 2:49 PM EDT) WBC 4.0 3.8 - 10.8 10E3/uL 10/28/2024 3:07 PM EDT [facility] RBC 2.44(L) 4.20 - 5.80 10E6/uL 10/28/2024 3:07 PM EDT [facility] Hemoglobin 7.5(L) 13.2 - 17.1 g/dL 10/28/2024 3:07 PM EDT [facility] Hematocrit 21.4(L) 38.5 - 50.0 % 10/28/2024 3:07 PM EDT [facility] MCV 87.6 80.0 - 100.0 fL 10/28/2024 3:07 PM EDT [facility] MCH 30.6 27.0 - 33.0 pg 10/28/2024 3:07 PM EDT [facility] MCHC 34.9 32.0 - 36.0 g/dL 10/28/2024 3:07 PM EDT [facility] RDW 18.4(H) 11.0 - 15.0 % 10/28/2024 3:07 PM EDT [facility] Platelets 30(L) 140 - 400 10E3/uL 10/28/2024 3:07 PM EDT [facility] Comment: CNV Specimen checked for clots. None detected. MPV 7.7 7.5 - 11.5 fL 10/28/2024 3:07 PM EDT [facility] Whole Blood 10/28/2024 2:49 PM EDT 10/28/2024 2:53 PM EDT us Carlos Marks MD LAB BLOOD ORDERABLES Final Result [facility] [address] * ECG 12 lead (MUSE) (10/28/2024 1:22 PM EDT) 10/28/2024 1:22 PM EDT Narrative MUSE - 10/29/2024 10:34 PM EDT Ventricular Rate: 104 BPM Atrial Rate: 104 BPM P-R Interval: 172 ms QRS Duration: 90 ms QT: 354 ms QTc: 465 ms P [place]: 58 degrees R [place]: -19 degrees T [place]: 38 degrees Diagnosis Line: SINUS TACHYCARDIA ^ OTHERWISE NORMAL ECG ^ ^ Confirmed by JORGE MACIAS ([id number]) on 10/29/2024 10:34:22 PM Hillary Fernandes PharmD ECG ORDERABLES Final Res ult Performing Organization Address City/[facility]/ZIP Co de Phone Number MUSE * (ABNORMAL) POC Glucose Monitoring Device (10/28/2024 12:54 PM EDT) POC Glucose Monitoring Device 119(H) 70 - 100 mg/dL 10/28/2024 12:55 PM EDT [facility] Blood 10/28/2024 12:5 4 PM EDT 10/28/2024 12:55 PM EDT Harvey Domínguez III, MD POINT OF CARE TEST ORDERABLES Final Result [facility] [address] [facility]. [address] * Transfuse RBC Transfusion Rate: Per dept routine (10/28/2024 12:31 PM EDT) us Carlos Marks MD NURSING TREATMENT ORDERABLE S - BLOOD ADMIN Final Result Performing Organization Address [facility] Co de Phone Number EXTERNAL * Transfuse RBC Transfusion Rate: Per dept routine, 1 Units (10/28/2024 12:31 PM EDT) us Carlos Marks MD NURSING TREATMENT ORDERABLE S - BLOOD ADMIN Final Result Performing Organization Address City/[facility] Co de Phone Number EXTERNAL * Protime-INR, STAT (10/28/2024 11:09 AM EDT) Protime 14.3 12.1 - 15.1 seconds 10/28/2024 11:29 AM EDT [facility] INR 1.1 0.9 - 1.1 10/28/2024 11:29 AM EDT [facility] Comment: RECOMMENDED THERAPEUTIC RANGES USING INR : Stable oral anticoagulant therapy: 2.0 - 3.0 Mechanical prosthetic heart valve: 2.5 - 3.5 Recurrent acute myocardial infarction: 2.5 - 3.5 Plasma 10/28/2024 11:0 9 AM EDT 10/28/2024 11:16 AM EDT us Carlos Marks MD LAB BLOOD ORDERABLES Final Result Performing Organization Address [facility] Co de Phone Number [facility] [address] [facility] * (ABNORMAL) Lactic Acid, STAT (10/28/2024 11:09 AM EDT) Lactate 0.3(L) 0.5 - 2.2 mmol/L 10/28/2024 11:37 AM EDT [facility] Plasma 10/28/2024 11:0 9 AM EDT 10/28/2024 11:15 AM EDT us Carlos Kulshrestha MD LAB BLOOD ORDERABLES Final Result [facility] [address] * Magnesium, STAT (10/28/2024 11:09 AM EDT) Magnesium 2.1 1.5 - 2.5 mg/dL 10/28/2024 11:47 AM EDT [facility] Plasma 10/28/2024 11:0 9 AM EDT 10/28/2024 11:16 AM EDT us Carlos Marks MD LAB BLOOD ORDERABLES Final Result Performing Organization Address [facility] Co de Phone Number [facility] [address] * (ABNORMAL) Renal Function Panel w/EGFR, STAT (10/28/2024 11:09 AM EDT) Sodium 144 133 - 146 mmol/L 10/28/2024 11:47 AM EDT [facility] Potassium 3.4(L) 3.5 - 5.3 mmol/L 10/28/2024 11:47 AM EDT [facility] Chloride 112(H) 98 - 110 mmol/L 10/28/2024 11:47 AM EDT [facility] CO2 22 21 - 33 mmol/L 10/28/2024 11:47 AM EDT [facility] Anion Gap 10 3 - 16 mmol/L 10/28/2024 11:47 AM EDT [facility] BUN 57(H) 7 - 25 mg/dL 10/28/2024 11:47 AM EDT [facility] Creatinine 2.01(H) 0.60 - 1.30 mg/dL 10/28/2024 11:47 AM EDT [facility] Glucose 108(H) 70 - 100 mg/dL 10/28/2024 11:47 AM EDT [facility] Calcium 8.8 8.6 - 10.3 mg/dL 10/28/2024 11:47 AM EDT [facility] Phosphorus 4.0 2.1 - 4.7 mg/dL 10/28/2024 11:47 AM EDT [facility] Albumin 3.3(L) 3.5 - 5.7 g/dL 10/28/2024 11:47 AM EDT [facility] Osmolality, Calculated 314(H) 278 - 305 mOsm/kg 10/28/2024 11:47 AM EDT [facility] EGFR 42 10/28/2024 11:47 AM EDT [facility] Comment:As of 2021, [...] Marks MD LAB BLOOD ORDERABLES Final Result [facility] [address] [place], [place] [address] * (ABNORMAL) TEG-Bypass/ECMO/Liver HN (Factor function, Platelet/Fibrin Clot Strength w/Clot Breakdown, Heparinase In All Channels) (10/28/2024 11:09 AM EDT) Citrated Kaolin Reaction Time (TEGECMOLIVER) 9.2(H) 4.6 - 9.1 minutes 10/28/2024 12:30 PM EDT [facility] Citrated Kaolin W/Heparinase Reaction Time (TEGECMOLIVER) 9.6(H) 4.3 - 8.3 minutes 10/28/2024 12:30 PM EDT [facility] Citrated Kaolin Maximum Amplitude (TEGECMOLIVER) 51.2(L) 52.0 - 69.0 mm 10/28/2024 12:30 PM EDT [facility] Citrated Functional Fibrinogen W/Heparinase Maximum Amplitude(TEGEC MOLIVER) 21.6 15.0 - 34.0 mm 10/28/2024 12:30 PM EDT [facility] Citrated Rapid Teg W/Heparinase Maximum Amplitude (TEGECMOLIVER) 49.3(L) 53.0 - 69.0 mm 10/28/2024 12:30 PM EDT [facility] Citrated Kaolin w/Heparinase Percent Lysis (TEGECMOLIVER) 0.0 0.0 - 3.2 % 10/28/2024 12:30 PM EDT [facility] Whole Blood (Citrate) 10/28/2024 11:09 AM EDT 10/28/2024 11:14 AM EDT Kemar Sahni MD LAB BLOOD ORDERABLES Final Result Performing Organization Address City/State/[facility] Co de Phone Number [facility] [address] * (ABNORMAL) CBC (10/28/2024 10:21 AM EDT) WBC 4.1 3.8 - 10.8 10E3/uL 10/28/2024 10:41 AM EDT [facility] RBC 2.30(L) 4.20 - 5.80 10E6/uL 10/28/2024 10:41 AM EDT [facility] Hemoglobin 7.1(L) 13.2 - 17.1 g/dL 10/28/2024 10:41 AM EDT [facility] Hematocrit 20.4(L) 38.5 - 50.0 % 10/28/2024 10:41 AM EDT [facility] MCV 88.5 80.0 - 100.0 fL 10/28/2024 10:41 AM EDT [facility] MCH 30.7 27.0 - 33.0 pg 10/28/2024 10:41 AM EDT [facility] MCHC 34.7 32.0 - 36.0 g/dL 10/28/2024 10:41 AM EDT [facility] RDW 18.7(H) 11.0 - 15.0 % 10/28/2024 10:41 AM EDT [facility] Platelets 37(L) 140 - 400 10E3/uL 10/28/2024 10:41 AM EDT [facility] Comment: CNV Specimen checked for clots. None detected. MPV 7.6 7.5 - 11.5 fL 10/28/2024 10:41 AM EDT [facility] Whole Blood 10/28/2024 10:2 1 AM EDT 10/28/2024 10:29 AM EDT Carlos Marks MD LAB BLOOD ORDERABLES Final Result Performing Organization Address City/[facility]/ZIP Co de Phone Number [facility] [address] [facility]. [address] * POC Glucose Monitoring Device (10/28/2024 9:07 AM EDT) POC Glucose Monitoring Device 97 70 - 100 mg/dL 10/28/2024 9:08 AM EDT [facility] Blood 10/28/2024 9:07 AM EDT 10/28/2024 9:08 AM EDT Harvey Domínguez III, MD POINT OF CARE TEST ORDERABLES Final Result Performing Organization Address City/[facility]/ZIP Co de Phone Number [facility] [address] [facility] * (ABNORMAL) Tacrolimus level (10/28/2024 8:20 AM EDT) Tacrolimus (LC-MS) <1.0(L) 3.0 - 15.0 ng/mL 10/28/2024 2:02 PM EDT [facility] Comment:Performed via liquid chromatography tandem mass spectrometry. Detection limit: 1 ng/mL. Individual target concentrations may vary due to target organ and time after transplant. This test has been developed and its performance characteristics determined by [facility] which is certified under the Clinical [...] EDT 10/28/2024 8:29 AM EDT Priti Geiger [facility] BLOOD ORDERABLES Final Re sult Performing Organization Address [facility]/ZIP Co de Phone Number [facility] [address] [facility] * (ABNORMAL) POC Glucose Monitoring Device (10/28/2024 8:10 AM EDT) POC Glucose Monitoring Device 102(H) 70 - 100 mg/dL 10/28/2024 8:11 AM EDT [facility] Blood 10/28/2024 8:10 AM EDT 10/28/2024 8:11 AM EDT Harvey Domínguez III, MD POINT OF CARE TEST ORDERABLES Final Result Performing Organization Address [facility] Co de Phone Number [facility] [address] [facility] * POC Glucose Monitoring Device (10/28/2024 6:17 AM EDT) POC Glucose Monitoring Device 100 70 - 100 mg/dL 10/28/2024 6:18 AM EDT [facility] Blood 10/28/2024 6:17 AM EDT 10/28/2024 6:18 AM EDT Harvey Domínguez III, MD POINT OF CARE TEST ORDERABLES Final Result Performing Organization Address City/[facility] Co de Phone Number [facility] [address] [facility] * Prepare Platelets, leukoreduced (10/28/2024 6:15 AM EDT) Product Code P4528E35 HCLL Unit Number [id number] HCLL Dispense Status Presumed Transfused_PT HCLL Blood Expiration Date HCLL Coding System [id number] HCLL Product Code X7269O35 HCLL Unit Number [id number] HCLL Dispense Status Presumed Transfused_PT HCLL Blood Expiration Date [id number] HCLL Coding System [id number] HCLL us Attending Provider Unknown BLOOD BANK PRODUCT OR DERABLES Final Result Performing Organization Address [facility] de Phone Number HCLL * Prepare Fresh Frozen Plasma (10/28/2024 6:15 AM EDT) Product Code Y5678J61 HCLL Unit Number [id number] HCLL Dispense Status Released from Crossmatch_RE HCLL Blood Expiration Date HCLL Coding System [id number] HCLL Product Code L2495J15 HCLL Unit Number [id number] HCLL Dispense Status Presumed Transfused_PT HCLL Blood Expiration Date HCLL Coding System [id number] HCLL Product Code S0969V73 HCLL Unit Number [id number] HCLL Dispense Status Released from Crossmatch_RE HCLL Blood Expiration Date HCLL Coding System ROEM768 HCLL Product Code E4690X69 HCLL Unit Number [id number] HCLL Dispense Status Presumed Transfused_PT HCLL Blood Expiration Date HCLL Coding System SKTG324 HCLL Product Code X5468C69 HCLL Unit Number [id number] HCLL Dispense Status Released from Crossmatch_RE HCLL Blood Expiration Date HCLL Coding System [id number] HCLL us Attending Provider Unknown BLOOD BANK PRODUCT OR DERABLES Final Result Performing Organization Address City/[facility] Co de Phone Number HCLL * Prepare RBC, leukoreduced (10/28/2024 6:15 AM EDT) Product Code R1514M68 HCLL Unit Number [id number] HCLL Dispense Status Released from Crossmatch_RE HCLL Blood Expiration Date 817484144399 HCLL Coding System VVIS081 HCLL Product Code F9835M50 HCLL Unit Number [id number] HCLL Dispense Status Presumed Transfused_PT HCLL Blood Expiration Date 109682983727 HCLL Coding System [id number] HCLL Product Code H1855T41 HCLL Unit Number [id number] HCLL Dispense Status Released from Crossmatch_RE HCLL Blood Expiration Date 308386765038 HCLL Coding System BVTC435 HCLL Product Code Y0435P44 HCLL Unit Number [id number] HCLL Dispense Status Presumed Transfused_PT HCLL Blood Expiration Date 253528046121 HCLL Coding System [id number] HCLL Product Code I9625D73 HCLL Unit Number [id number] HCLL Dispense Status Released from Crossmatch_RE HCLL Blood Expiration Date 100579805914 HCLL Coding System [id number] HCLL us Attending Provider Unknown BLOOD BANK PRODUCT OR DERABLES Final Result Performing Organization Address City/[facility] Co de Phone Number HCLL * Prepare Platelets, leukoreduced, 1 Units (10/28/2024 6:15 AM EDT) Product Code C6640G28 HCLL Unit Number [id number] HCLL Dispense Status Presumed Transfused_PT HCLL Blood Expiration Date [id number] HCLL Coding System [id number] HCLL Blood Bank Product us John Pina MD BLOOD BANK PRODUCT ORDERABLES F inal Result Performing Organization Address City/[facility]/ZIP Co de Phone Number HCLL * Prepare Cryoprecipitate, 1 Units (10/28/2024 6:15 AM EDT) Product Code W5202U11 HCLL Unit Number [id number] HCLL Dispense Status Presumed Transfused_PT HCLL Blood Expiration Date HCLL Coding System [id number] HCLL Product Code O4390D98 HCLL Unit Number [id number] HCLL Dispense Status Presumed Transfused_PT HCLL Blood Expiration Date HCLL Coding System [id number] HCLL Blood Bank Product John Pina MD BLOOD BANK PRODUCT ORDERABLES F inal Result Performing Organization Address [facility] Co de Phone Number HCLL * Prepare Fresh Frozen Plasma, 1 Units (10/28/2024 6:15 AM EDT) Product Code S6213K24 HCLL Unit Number [id number] Dispense Status Presumed Transfused_PT HCLL Blood Expiration Date HCLL Coding System [id number] HCLL Blood Bank Product John Pina MD BLOOD BANK PRODUCT ORDERABLES F inal Result Performing Organization Address [facility] Co de Phone Number HCLL * Prepare Cryoprecipitate, 1 Units (10/28/2024 6:15 AM EDT) Product Code S9937J18 HCLL Unit Number [id number] HCLL Dispense Status Presumed Transfused_PT HCLL Blood Expiration Date HCLL Coding System VNQL496 HCLL Product Code K8186R65 HCLL Unit Number [id number] HCLL Dispense Status Presumed Transfused_PT HCLL Blood Expiration Date 286376227122 HCLL Coding System ELKZ397 HCLL Product Code D9669P23 HCLL Unit Number [id number] HCLL Dispense Status Presumed Transfused_PT HCLL Blood Expiration Date 817901630765 HCLL Coding System QJRW913 HCLL Product Code E6393S92 HCLL Unit Number [id number] HCLL Dispense Status Presumed Transfused_PT HCLL Blood Expiration Date [id number] [facility] Coding System [id number] HCLL Blood Bank Product us John Pina MD BLOOD BANK PRODUCT ORDERABLES F inal Result [facility] * (ABNORMAL) POC Glucose Monitoring Device (10/28/2024 4:55 AM EDT) [facility] Signature POC Glucose Monitoring Device 104(H) 70 - 100 mg/dL 10/28/2024 4:57 AM EDT [facility] Blood 10/28/2024 4:55 AM EDT 10/28/2024 4:57 AM EDT us Harvey Domínguez III, MD POINT OF CARE TEST ORDERABLES Final Result Performing Organization Address City/[facility]/ZIP Co de Phone Number [facility] [address] * TEG-Bypass/ECMO/Liver HN (Factor function, Platelet/Fibrin Clot Strength w/Clot Breakdown, Heparinase In All Channels) (10/28/2024 4:13 AM EDT) Citrated Kaolin Reaction Time (TEGECMOLIVER) 7.2 4.6 - 9.1 minutes 10/28/2024 5:38 AM EDT [facility] Citrated Kaolin W/Heparinase Reaction Time (TEGECMOLIVER) 7.8 4.3 - 8.3 minutes 10/28/2024 5:38 AM EDT [facility] Citrated Kaolin Maximum Amplitude (TEGECMOLIVER) 53.0 52.0 - 69.0 mm 10/28/2024 5:38 AM EDT [facility] Citrated Functional Fibrinogen W/Heparinase Maximum Amplitude(TEGEC MOLIVER) 21.4 15.0 - 34.0 mm 10/28/2024 5:38 AM EDT [facility] Citrated Rapid Teg W/Heparinase Maximum Amplitude (TEGECMOLIVER) 54.7 53.0 - 69.0 mm 10/28/2024 5:38 AM EDT [facility] Citrated Kaolin w/Heparinase Percent Lysis (TEGECMOLIVER) 0.0 0.0 - 3.2 % 10/28/2024 5:38 AM EDT [facility] Whole Blood (Citrate) 10/28/2024 4:13 AM EDT 10/28/2024 4:28 AM EDT Kemar Sahni MD LAB BLOOD ORDERABLES Final Result Performing Organization Address City/[facility] Co de Phone Number [facility] [address] [facility] * Protime-INR (10/28/2024 4:13 AM EDT) Protime 14.6 12.1 - 15.1 seconds 10/28/2024 4:53 AM EDT [facility] INR 1.1 0.9 - 1.1 10/28/2024 4:53 AM EDT [facility] Comment: RECOMMENDED THERAPEUTIC RANGES USING INR : Stable oral anticoagulant therapy: 2.0 - 3.0 Mechanical prosthetic heart valve: 2.5 - 3.5 Recurrent acute myocardial infarction: 2.5 - 3.5 Plasma 10/28/2024 4:13 AM EDT 10/28/2024 4:41 AM EDT Kemar Sahni MD LAB BLOOD ORDERABLES Final Result [facility] [address] [facility] * Magnesium (10/28/2024 4:13 AM EDT) Magnesium 2.2 1.5 - 2.5 mg/dL 10/28/2024 5:15 AM EDT [facility] Plasma 10/28/2024 4:13 AM EDT 10/28/2024 4:41 AM EDT Kemar Sahni MD LAB BLOOD ORDERABLES Final Result [facility] [address] [place] [address], [facility] * (ABNORMAL) Hepatic Function Panel (10/28/2024 4:13 AM EDT) Total Bilirubin 2.3(H) 0.0 - 1.5 mg/dL 10/28/2024 5:15 AM EDT [facility] Bilirubin, Direct 1.67(H) 0.00 - 0.40 mg/dL 10/28/2024 5:15 AM EDT [facility] AST 44(H) 13 - 39 U/L 10/28/2024 5:15 AM EDT [facility] ALT 101(H) 7 - 52 U/L 10/28/2024 5:15 AM EDT [facility] Alkaline Phosphatase 26(L) 36 - 125 U/L 10/28/2024 5:15 AM EDT [facility] Total Protein 4.5(L) 6.4 - 8.9 g/dL 10/28/2024 5:15 AM EDT [facility] Albumin 3.1(L) 3.5 - 5.7 g/dL 10/28/2024 5:15 AM EDT [facility] Bilirubin, Indirect 0.63 0.00 - 1.10 mg/dL 10/28/2024 5:15 AM EDT [facility] Plasma 10/28/2024 4:13 AM EDT 10/28/2024 4:41 AM EDT us Kemar Sahni MD LAB BLOOD ORDERABLES Final Result [facility] [address] [place] [address], [facility] * (ABNORMAL) Renal Function Panel w/EGFR (10/28/2024 4:13 AM EDT) Sodium 142 133 - 146 mmol/L 10/28/2024 5:15 AM EDT [facility] Potassium 3.5 3.5 - 5.3 mmol/L 10/28/2024 5:15 AM EDT [facility] Chloride 111(H) 98 - 110 mmol/L 10/28/2024 5:15 AM EDT [facility] CO2 22 21 - 33 mmol/L 10/28/2024 5:15 AM EDT [facility] Anion Gap 9 3 - 16 mmol/L 10/28/2024 5:15 AM EDT [facility] BUN 58(H) 7 - 25 mg/dL 10/28/2024 5:15 AM EDT [facility] Creatinine 2.24(H) 0.60 - 1.30 mg/dL 10/28/2024 5:15 AM EDT [facility] Glucose 103(H) 70 - 100 mg/dL 10/28/2024 5:15 AM EDT [facility] Calcium 9.1 8.6 - 10.3 mg/dL 10/28/2024 5:15 AM EDT [facility] Phosphorus 4.8(H) 2.1 - 4.7 mg/dL 10/28/2024 5:15 AM EDT [facility] Albumin 3.1(L) 3.5 - 5.7 g/dL 10/28/2024 5:15 AM EDT [facility] Osmolality, Calculated 310(H) 278 - 305 mOsm/kg 10/28/2024 5:15 AM EDT [facility] EGFR 37 10/28/2024 5:15 AM EDT [facility] Comment:As of 2021, [...] Sahni MD LAB BLOOD ORDERABLES Final Result [facility] [address] [place] [address], [facility] * (ABNORMAL) CBC (10/28/2024 4:13 AM EDT) WBC 4.5 3.8 - 10.8 10E3/uL 10/28/2024 5:09 AM EDT [facility] RBC 2.39(L) 4.20 - 5.80 10E6/uL 10/28/2024 5:09 AM EDT [facility] Hemoglobin 7.3(L) 13.2 - 17.1 g/dL 10/28/2024 5:09 AM EDT [facility] Hematocrit 21.0(L) 38.5 - 50.0 % 10/28/2024 5:09 AM EDT [facility] MCV 87.8 80.0 - 100.0 fL 10/28/2024 5:09 AM EDT [facility] MCH 30.5 27.0 - 33.0 pg 10/28/2024 5:09 AM EDT [facility] MCHC 34.7 32.0 - 36.0 g/dL 10/28/2024 5:09 AM EDT [facility] RDW 18.7(H) 11.0 - 15.0 % 10/28/2024 5:09 AM EDT [facility] Platelets 38(L) 140 - 400 10E3/uL 10/28/2024 5:09 AM EDT [facility] Comment: CNV Specimen checked for clots. None detected. MPV 7.6 7.5 - 11.5 fL 10/28/2024 5:09 AM EDT [facility] Whole Blood 10/28/2024 4:13 AM EDT 10/28/2024 4:41 AM EDT Kemar Sahni MD LAB BLOOD ORDERABLES Final Result [facility] [address] * (ABNORMAL) POC Glucose Monitoring Device (10/28/2024 4:04 AM EDT) POC Glucose Monitoring Device 103(H) 70 - 100 mg/dL 10/28/2024 4:05 AM EDT [facility] Blood 10/28/2024 4:04 AM EDT 10/28/2024 4:05 AM EDT us Harvey Domínguez III, MD POINT OF CARE TEST ORDERABLES Final Result Performing Organization Address City/[facility]/ZIP Co de Phone Number [facility] [address] * (ABNORMAL) POC Glucose Monitoring Device (10/28/2024 3:00 AM EDT) POC Glucose Monitoring Device 106(H) 70 - 100 mg/dL 10/28/2024 3:01 AM EDT [facility] Blood 10/28/2024 3:00 AM EDT 10/28/2024 3:01 AM EDT us Harvey Domínguez III, MD POINT OF CARE TEST ORDERABLES Final Result Performing Organization Address [facility] Co de Phone Number [facility] [address] * (ABNORMAL) POC Glucose Monitoring Device (10/28/2024 2:32 AM EDT) POC Glucose Monitoring Device 109(H) 70 - 100 mg/dL 10/28/2024 2:33 AM EDT [facility] Blood 10/28/2024 2:32 AM EDT 10/28/2024 2:33 AM EDT us Harvey Domínguez III, MD POINT OF CARE TEST ORDERABLES Final Result [facility] [address] * (ABNORMAL) POC Glucose Monitoring Device (10/28/2024 2:14 AM EDT) POC Glucose Monitoring Device 115(H) 70 - 100 mg/dL 10/28/2024 2:15 AM EDT [facility] Blood 10/28/2024 2:14 AM EDT 10/28/2024 2:15 AM EDT Result [facility] Harvey Domínguez III, MD POINT OF CARE TEST ORDERABLES Final Result [facility] [address] * (ABNORMAL) POC Glucose Monitoring Device (10/28/2024 2:03 AM EDT) POC Glucose Monitoring Device 101(H) 70 - 100 mg/dL 10/28/2024 2:04 AM EDT [facility] Blood 10/28/2024 2:03 AM EDT 10/28/2024 2:04 AM EDT Harvey Domínguez III, MD POINT OF CARE TEST ORDERABLES Final Result Performing Organization Address City/[facility]/ZIP Co de Phone Number [facility] [address] [facility]. [address] * Transfuse RBC Transfusion Rate: Per dept routine (10/28/2024 1:51 AM EDT) John Moreno MD NURSING TREATMENT ORDERABLES - BLOOD ADMIN Final Result EXTERNAL * Transfuse RBC Transfusion Rate: Per dept routine, 1 Units (10/28/2024 1:51 AM EDT) Jhon Moreno MD NURSING TREATMENT ORDERABLES - BLOOD ADMIN Final Result EXTERNAL * (ABNORMAL) TEG-Bypass/ECMO/Liver HN (Factor function, Platelet/Fibrin Clot Strength w/Clot Breakdown, Heparinase In All Channels) (10/28/2024 12:05 AM EDT) Citrated Kaolin Reaction Time (TEGECMOLIVER) 7.5 4.6 - 9.1 minutes 10/28/2024 1:22 AM EDT [facility] Citrated Kaolin W/Heparinase Reaction Time (TEGECMOLIVER) 7.7 4.3 - 8.3 minutes 10/28/2024 1:22 AM EDT [facility] Citrated Kaolin Maximum Amplitude (TEGECMOLIVER) 54.4 52.0 - 69.0 mm 10/28/2024 1:22 AM EDT [facility] Citrated Functional Fibrinogen W/Heparinase Maximum Amplitude(TEGEC MOLIVER) 20.4 15.0 - 34.0 mm 10/28/2024 1:22 AM EDT [facility] Citrated Rapid Teg W/Heparinase Maximum Amplitude (TEGECMOLIVER) 51.0(L) 53.0 - 69.0 mm 10/28/2024 1:22 AM EDT [facility] Citrated Kaolin w/Heparinase Percent Lysis (TEGECMOLIVER) 0.0 0.0 - 3.2 % 10/28/2024 1:22 AM EDT [facility] Whole Blood (Citrate) 10/28/2024 12:05 AM EDT 10/28/2024 12:09 AM EDT Kemar Sahni MD LAB BLOOD ORDERABLES Final Result Performing Organization Address City/State/[facility] Co de Phone Number [facility] [address] [id number] * Magnesium (10/28/2024 12:05 AM EDT) Magnesium 2.2 1.5 - 2.5 mg/dL 10/28/2024 1:59 AM EDT [facility] Plasma 10/28/2024 12:0 5 AM EDT 10/28/2024 12:11 AM EDT Kemar Sahni MD LAB BLOOD ORDERABLES Final Result [facility] [address] [id number], [facility] * (ABNORMAL) Renal Function Panel w/EGFR (10/28/2024 12:05 AM EDT) Sodium 144 133 - 146 mmol/L 10/28/2024 1:59 AM EDT [facility] Potassium 3.4(L) 3.5 - 5.3 mmol/L 10/28/2024 1:59 AM EDT [facility] Chloride 112(H) 98 - 110 mmol/L 10/28/2024 1:59 AM EDT [facility] CO2 19(L) 21 - 33 mmol/L 10/28/2024 1:59 AM EDT [facility] Anion Gap 13 3 - 16 mmol/L 10/28/2024 1:59 AM EDT [facility] BUN 59(H) 7 - 25 mg/dL 10/28/2024 1:59 AM EDT [facility] Creatinine 2.42(H) 0.60 - 1.30 mg/dL 10/28/2024 1:59 AM EDT [facility] Glucose 118(H) 70 - 100 mg/dL 10/28/2024 1:59 AM EDT [facility] Calcium 9.0 8.6 - 10.3 mg/dL 10/28/2024 1:59 AM EDT [facility] Phosphorus 5.3(H) 2.1 - 4.7 mg/dL 10/28/2024 1:59 AM EDT [facility] Albumin 3.1(L) 3.5 - 5.7 g/dL 10/28/2024 1:59 AM EDT [facility] Osmolality, Calculated 316(H) 278 - 305 mOsm/kg 10/28/2024 1:59 AM EDT [facility] EGFR 34 10/28/2024 1:59 AM EDT [facility] Comment:As of 2021, [...] Sahni MD LAB BLOOD ORDERABLES Final Result [facility] [address] [id number], [facility] * (ABNORMAL) Differential (10/28/2024 12:05 AM EDT) Neutrophils Relative 88.6(H) 40.0 - 80.0 % 10/28/2024 12:41 AM EDT [facility] Lymphocytes Relative 2.5(L) 15.0 - 45.0 % 10/28/2024 12:41 AM EDT [facility] Monocytes Relative 6.1 0.0 - 12.0 % 10/28/2024 12:41 AM EDT [facility] Eosinophils Relative 2.4 0.0 - 8.0 % 10/28/2024 12:41 AM EDT [facility] Basophils Relative 0.4 0.0 - 1.0 % 10/28/2024 12:41 AM EDT [facility] nRBC 0 0 - 0 /100 WBC 10/28/2024 12:41 AM EDT [facility] Neutrophils Absolute 4,341 1,520 - 8,640 /uL 10/28/2024 12:41 AM EDT [facility] Lymphocytes Absolute 123(L) 570 - 4,860 /uL 10/28/2024 12:41 AM EDT [facility] Monocytes Absolute 299 0 - 1,296 /uL 10/28/2024 12:41 AM EDT [facility] Eosinophils Absolute 118 0 - 864 /uL 10/28/2024 12:41 AM EDT [facility] Basophils Absolute 20 0 - 108 /uL 10/28/2024 12:41 AM EDT [facility] Whole Blood 10/28/2024 12:0 5 AM EDT 10/28/2024 12:11 AM EDT Kemar Sahni MD LAB BLOOD ORDERABLES Final Result Performing Organization Address City/State/[facility] Co de Phone Number [facility] [address] [place] [address], [facility] * (ABNORMAL) CBC (10/28/2024 12:05 AM EDT) WBC 4.9 3.8 - 10.8 10E3/uL 10/28/2024 12:41 AM EDT [facility] RBC 2.18(L) 4.20 - 5.80 10E6/uL 10/28/2024 12:41 AM EDT [facility] Hemoglobin 6.7(L) 13.2 - 17.1 g/dL 10/28/2024 12:41 AM EDT [facility] Hematocrit 19.2(L) 38.5 - 50.0 % 10/28/2024 12:41 AM EDT [facility] MCV 87.8 80.0 - 100.0 fL 10/28/2024 12:41 AM EDT [facility] MCH 30.6 27.0 - 33.0 pg 10/28/2024 12:41 AM EDT [facility] MCHC 34.8 32.0 - 36.0 g/dL 10/28/2024 12:41 AM EDT [facility] RDW 19.6(H) 11.0 - 15.0 % 10/28/2024 12:41 AM EDT [facility] Platelets 45(L) 140 - 400 10E3/uL 10/28/2024 12:41 AM EDT [facility] Comment: CNV Specimen checked for clots. None detected. MPV 7.8 7.5 - 11.5 fL 10/28/2024 12:41 AM EDT [facility] Whole Blood 10/28/2024 12:0 5 AM EDT 10/28/2024 12:11 AM EDT Kemar Sahni MD LAB BLOOD ORDERABLES Final Result Performing Organization Address City/[facility]/ZIP Co de Phone Number [facility] [address] [place] [address]. [address] * (ABNORMAL) POC Glucose Monitoring Device (10/28/2024 12:03 AM EDT) POC Glucose Monitoring Device 122(H) 70 - 100 mg/dL 10/28/2024 12:04 AM EDT [facility] Blood 10/28/2024 12:0 3 AM EDT 10/28/2024 12:04 AM EDT Harvey Domínguez III, MD POINT OF CARE TEST ORDERABLES Final Result Performing Organization Address City/[facility] Co de Phone Number [facility] [address] [facility]. [address] * (ABNORMAL) POC Glucose Monitoring Device (10/27/2024 10:03 PM EDT) POC Glucose Monitoring Device 127(H) 70 - 100 mg/dL 10/27/2024 10:03 PM EDT [facility] Blood 10/27/2024 10:0 3 PM EDT 10/27/2024 10:03 PM EDT Harvey Domínguez III, MD POINT OF CARE TEST ORDERABLES Final Result [facility] [address] [facility]. [address] * (ABNORMAL) POC Glucose Monitoring Device (10/27/2024 8:06 PM EDT) POC Glucose Monitoring Device 128(H) 70 - 100 mg/dL 10/27/2024 8:45 PM EDT [facility] Blood 10/27/2024 8:06 PM EDT 10/27/2024 8:45 PM EDT Harvey Domínguez III, MD POINT OF CARE TEST ORDERABLES Final Result Performing Organization Address City/[facility]/ZIP Co de Phone Number [facility] [address] * (ABNORMAL) POC Glucose Monitoring Device (10/27/2024 6:00 PM EDT) POC Glucose Monitoring Device 128(H) 70 - 100 mg/dL 10/27/2024 6:00 PM EDT [facility] Blood 10/27/2024 6:00 PM EDT 10/27/2024 6:00 PM EDT Harvey Domínguez III, MD POINT OF CARE TEST ORDERABLES Final Result Performing Organization Address [facility] Co de Phone Number [facility] [address] [facility]. [address] * Lactic Acid, STAT (10/27/2024 5:41 PM EDT) Lactate 0.5 0.5 - 2.2 mmol/L 10/27/2024 6:28 PM EDT [facility] Plasma 10/27/2024 5:41 PM EDT 10/27/2024 5:49 PM EDT Narrative [facility] - 10/27/2024 6:28 PM EDT Redraw John Moreno MD LAB BLOOD ORDERABLES Final R esult [facility] [address] [facility]. [address] * (ABNORMAL) Hepatic Function Panel, STAT (10/27/2024 5:13 PM EDT) Total Bilirubin 1.7(H) 0.0 - 1.5 mg/dL 10/27/2024 5:50 PM EDT [facility] Bilirubin, Direct 1.17(H) 0.00 - 0.40 mg/dL 10/27/2024 5:50 PM EDT [facility] AST 60(H) 13 - 39 U/L 10/27/2024 5:50 PM EDT [facility] ALT 134(H) 7 - 52 U/L 10/27/2024 5:50 PM EDT [facility] Alkaline Phosphatase 27(L) 36 - 125 U/L 10/27/2024 5:50 PM EDT [facility] Total Protein 4.1(L) 6.4 - 8.9 g/dL 10/27/2024 5:50 PM EDT [facility] Albumin 2.9(L) 3.5 - 5.7 g/dL 10/27/2024 5:50 PM EDT [facility] Bilirubin, Indirect 0.53 0.00 - 1.10 mg/dL 10/27/2024 5:50 PM EDT [facility] Plasma 10/27/2024 5:13 PM EDT 10/27/2024 5:23 PM EDT Shay Plata MD LAB BLOOD ORDERABLES Final Result [facility] [address] [place] [address], [facility] * (ABNORMAL) TEG-Bypass/ECMO/Liver HN (Factor function, Platelet/Fibrin Clot Strength w/Clot Breakdown, Heparinase In All Channels) (10/27/2024 5:13 PM EDT) Citrated Kaolin Reaction Time (TEGECMOLIVER) 8.0 4.6 - 9.1 minutes 10/27/2024 6:56 PM EDT [facility] Citrated Kaolin W/Heparinase Reaction Time (TEGECMOLIVER) 6.8 4.3 - 8.3 minutes 10/27/2024 6:56 PM EDT [facility] Citrated Kaolin Maximum Amplitude (TEGECMOLIVER) 55.4 52.0 - 69.0 mm 10/27/2024 6:56 PM EDT [facility] Citrated Functional Fibrinogen W/Heparinase Maximum Amplitude(TEGEC MOLIVER) 22.9 15.0 - 34.0 mm 10/27/2024 6:56 PM EDT [facility] Citrated Rapid Teg W/Heparinase Maximum Amplitude (TEGECMOLIVER) 50.8(L) 53.0 - 69.0 mm 10/27/2024 6:56 PM EDT [facility] Citrated Kaolin w/Heparinase Percent Lysis (TEGECMOLIVER) 0.1 0.0 - 3.2 % 10/27/2024 6:56 PM EDT [facility] Whole Blood (Citrate) 10/27/2024 5:13 PM EDT 10/27/2024 5:20 PM EDT Kemar Sahni MD LAB BLOOD ORDERABLES Final Result Performing Organization Address City/[facility] Co de Phone Number [facility] [address] [facility]. [address] * (ABNORMAL) Protime-INR (10/27/2024 5:13 PM EDT) Protime 15.2(H) 12.1 - 15.1 seconds 10/27/2024 5:40 PM EDT [facility] INR 1.1 0.9 - 1.1 10/27/2024 5:40 PM EDT [facility] Comment: RECOMMENDED THERAPEUTIC RANGES USING INR : Stable oral anticoagulant therapy: 2.0 - 3.0 Mechanical prosthetic heart valve: 2.5 - 3.5 Recurrent acute myocardial infarction: 2.5 - 3.5 Plasma 10/27/2024 5:13 PM EDT 10/27/2024 5:23 PM EDT Kemar Sahni MD LAB BLOOD ORDERABLES Final Result [facility] [address] [facility] * Magnesium (10/27/2024 5:13 PM EDT) Magnesium 2.4 1.5 - 2.5 mg/dL 10/27/2024 5:53 PM EDT [facility] Plasma 10/27/2024 5:13 PM EDT 10/27/2024 5:23 PM EDT Kemar Sahni MD LAB BLOOD ORDERABLES Final Result [facility] [address] * (ABNORMAL) Hepatic Function Panel (10/27/2024 5:13 PM EDT) Total Bilirubin 1.7(H) 0.0 - 1.5 mg/dL 10/27/2024 5:53 PM EDT [facility] Bilirubin, Direct 1.10(H) 0.00 - 0.40 mg/dL 10/27/2024 5:53 PM EDT [facility] AST 62(H) 13 - 39 U/L 10/27/2024 5:53 PM EDT [facility] ALT 134(H) 7 - 52 U/L 10/27/2024 5:53 PM EDT [facility] Alkaline Phosphatase 27(L) 36 - 125 U/L 10/27/2024 5:53 PM EDT [facility] Total Protein 4.1(L) 6.4 - 8.9 g/dL 10/27/2024 5:53 PM EDT [facility] Albumin 2.9(L) 3.5 - 5.7 g/dL 10/27/2024 5:53 PM EDT [facility] Bilirubin, Indirect 0.60 0.00 - 1.10 mg/dL 10/27/2024 5:53 PM EDT [facility] Plasma 10/27/2024 5:13 PM EDT 10/27/2024 5:23 PM EDT Kemar Sahni MD LAB BLOOD ORDERABLES Final Result [facility] [address] * (ABNORMAL) Renal Function Panel w/EGFR (10/27/2024 5:13 PM EDT) Sodium 142 133 - 146 mmol/L 10/27/2024 5:53 PM EDT [facility] Potassium 3.4(L) 3.5 - 5.3 mmol/L 10/27/2024 5:53 PM EDT [facility] Chloride 109 98 - 110 mmol/L 10/27/2024 5:53 PM EDT [facility] CO2 22 21 - 33 mmol/L 10/27/2024 5:53 PM EDT [facility] Anion Gap 11 3 - 16 mmol/L 10/27/2024 5:53 PM EDT [facility] BUN 61(H) 7 - 25 mg/dL 10/27/2024 5:53 PM EDT [facility] Creatinine 2.42(H) 0.60 - 1.30 mg/dL 10/27/2024 5:53 PM EDT [facility] Glucose 125(H) 70 - 100 mg/dL 10/27/2024 5:53 PM EDT [facility] Calcium 8.8 8.6 - 10.3 mg/dL 10/27/2024 5:53 PM EDT [facility] Phosphorus 5.7(H) 2.1 - 4.7 mg/dL 10/27/2024 5:53 PM EDT [facility] Albumin 2.9(L) 3.5 - 5.7 g/dL 10/27/2024 5:53 PM EDT [facility] Osmolality, Calculated 313(H) 278 - 305 mOsm/kg 10/27/2024 5:53 PM EDT [facility] EGFR 34 10/27/2024 5:53 PM EDT [facility] Comment:As of 2021, [...] Sahni MD LAB BLOOD ORDERABLES Final Result [facility] [address] [place] [address], [facility] * (ABNORMAL) CBC (10/27/2024 5:13 PM EDT) WBC 4.9 3.8 - 10.8 10E3/uL 10/27/2024 6:14 PM EDT [facility] RBC 2.44(L) 4.20 - 5.80 10E6/uL 10/27/2024 6:14 PM EDT [facility] Hemoglobin 7.4(L) 13.2 - 17.1 g/dL 10/27/2024 6:14 PM EDT [facility] Hematocrit 21.4(L) 38.5 - 50.0 % 10/27/2024 6:14 PM EDT [facility] MCV 87.6 80.0 - 100.0 fL 10/27/2024 6:14 PM EDT [facility] MCH 30.3 27.0 - 33.0 pg 10/27/2024 6:14 PM EDT [facility] MCHC 34.6 32.0 - 36.0 g/dL 10/27/2024 6:14 PM EDT [facility] RDW 19.6(H) 11.0 - 15.0 % 10/27/2024 6:14 PM EDT [facility] Platelets 47(L) 140 - 400 10E3/uL 10/27/2024 6:14 PM EDT [facility] Comment: CNV Specimen checked for clots. None detected. MPV 8.1 7.5 - 11.5 fL 10/27/2024 6:14 PM EDT [facility] Whole Blood 10/27/2024 5:13 PM EDT 10/27/2024 5:23 PM EDT us Kemar Sahni MD LAB BLOOD ORDERABLES Final Result [facility] [address] [facility] * (ABNORMAL) POC Glucose Monitoring Device (10/27/2024 3:57 PM EDT) POC Glucose Monitoring Device 131(H) 70 - 100 mg/dL 10/27/2024 3:58 PM EDT [facility] Blood 10/27/2024 3:57 PM EDT 10/27/2024 3:58 PM EDT Harvey Domínguez III, MD POINT OF CARE TEST ORDERABLES Final Result Performing Organization Address [facility]/ZIP Co de Phone Number [facility] [address] * (ABNORMAL) CBC, STAT (10/27/2024 2:40 PM EDT) WBC 5.8 3.8 - 10.8 10E3/uL 10/27/2024 2:54 PM EDT [facility] RBC 2.43(L) 4.20 - 5.80 10E6/uL 10/27/2024 2:54 PM EDT [facility] Hemoglobin 7.5(L) 13.2 - 17.1 g/dL 10/27/2024 2:54 PM EDT [facility] Hematocrit 21.5(L) 38.5 - 50.0 % 10/27/2024 2:54 PM EDT [facility] MCV 88.2 80.0 - 100.0 fL 10/27/2024 2:54 PM EDT [facility] MCH 30.7 27.0 - 33.0 pg 10/27/2024 2:54 PM EDT [facility] MCHC 34.8 32.0 - 36.0 g/dL 10/27/2024 2:54 PM EDT [facility] RDW 19.1(H) 11.0 - 15.0 % 10/27/2024 2:54 PM EDT [facility] Platelets 50(L) 140 - 400 10E3/uL 10/27/2024 2:54 PM EDT [facility] MPV 7.5 7.5 - 11.5 fL 10/27/2024 2:54 PM EDT [facility] Whole Blood 10/27/2024 2:40 PM EDT 10/27/2024 2:44 PM EDT us John Moreno MD LAB BLOOD ORDERABLES Final R esult [facility] [address] [id number], [facility] * (ABNORMAL) Blood Gas, Arterial, STAT (10/27/2024 2:40 PM EDT) O2 Sat, Arterial 98 10/27/2024 2:46 PM EDT [facility] FIO2 RA 10/27/2024 2:46 PM EDT [facility] pH, Arterial 7.37 7.35 - 7.45 10/27/2024 2:46 PM EDT [facility] pCO2, Arterial 35 35 - 45 mm Hg 10/27/2024 2:46 PM EDT [facility] pO2, Arterial 92 80 - 100 mm Hg 10/27/2024 2:46 PM EDT [facility] HCO3, Arterial 21(L) 22 - 26 mmol/L 10/27/2024 2:46 PM EDT [facility] CO2 Content,Arteri al 21(L) 23 - 27 mmol/L 10/27/2024 2:46 PM EDT [facility] Base Excess, Arterial -4.6(L) -2.0 - 3.0 mmol/L 10/27/2024 2:46 PM EDT [facility] %HBO2, Arterial 95.4 95.0 - 98.0 % 10/27/2024 2:46 PM EDT [facility] Carboxyhemoglo bin, Arterial 1.6 % 10/27/2024 2:46 PM EDT [facility] Comment: CARBOXYHEMOGLOBIN (CO) REFERENCE RANGES: Non-Smokers: <2 % Smokers: <8 % TOXIC: >20 % Methemoglobin, Arterial 1.0 0.0 - 1.5 % 10/27/2024 2:46 PM EDT [facility] Reduced hemoglobin, Arterial 2.1 0.0 - 5.0 % 10/27/2024 2:46 PM EDT [facility] Blood, Arterial 10/27/2024 2 :40 PM EDT 10/27/2024 2:44 PM EDT Narrative [facility] - 10/27/2024 2:46 PM EDT Post extubation John Moreno MD LAB BLOOD ORDERABLES Final R esult Performing Organization Address [facility]/ZIP Co de Phone Number [facility] [address] * (ABNORMAL) POC Glucose Monitoring Device (10/27/2024 2:06 PM EDT) [facility] Signature POC Glucose Monitoring Device 134(H) 70 - 100 mg/dL 10/27/2024 2:06 PM EDT [facility] Blood 10/27/2024 2:06 PM EDT 10/27/2024 2:06 PM EDT Harvey Domínguez III, MD POINT OF CARE TEST ORDERABLES Final Result Performing Organization Address [facility] de Phone Number [facility] [address] * (ABNORMAL) Blood gas, arterial (10/27/2024 12:35 PM EDT) O2 Sat, Arterial 99 10/27/2024 12:46 PM EDT [facility] FIO2 SBT 30% 10/27/2024 12:46 PM EDT [facility] pH, Arterial 7.35 7.35 - 7.45 10/27/2024 12:46 PM EDT [facility] pCO2, Arterial 37 35 - 45 mm Hg 10/27/2024 12:46 PM EDT [facility] pO2, Arterial 182(H) 80 - 100 mm Hg 10/27/2024 12:46 PM EDT [facility] HCO3, Arterial 21(L) 22 - 26 mmol/L 10/27/2024 12:46 PM EDT [facility] CO2 Content,Arteri al 22(L) 23 - 27 mmol/L 10/27/2024 12:46 PM EDT [facility] Base Excess, Arterial -4.8(L) -2.0 - 3.0 mmol/L 10/27/2024 12:46 PM EDT [facility] %HBO2, Arterial 96.3 95.0 - 98.0 % 10/27/2024 12:46 PM EDT [facility] Carboxyhemoglo bin, Arterial 1.7 % 10/27/2024 12:46 PM EDT [facility] Comment: CARBOXYHEMOGLOBIN (CO) REFERENCE RANGES: Non-Smokers: <2 % Smokers: <8 % TOXIC: >20 % Methemoglobin, Arterial 1.4 0.0 - 1.5 % 10/27/2024 12:46 PM EDT [facility] Reduced hemoglobin, Arterial 0.6 0.0 - 5.0 % 10/27/2024 12:46 PM EDT [facility] Blood, Arterial 10/27/2024 1 2:35 PM EDT 10/27/2024 12:42 PM EDT Narrative [facility] - 10/27/2024 12:46 PM EDT Please obtain post SBT us Shay Sifuentes MD LAB BLOOD ORDERABLES Final Resu lt [facility] [address] [place] [address], [facility] * (ABNORMAL) TEG-Bypass/ECMO/Liver HN (Factor function, Platelet/Fibrin Clot Strength w/Clot Breakdown, Heparinase In All Channels) (10/27/2024 12:07 PM EDT) [facility] Signature Citrated Kaolin Reaction Time (TEGECMOLIVER) 7.9 4.6 - 9.1 minutes 10/27/2024 1:24 PM EDT [facility] Citrated Kaolin W/Heparinase Reaction Time (TEGECMOLIVER) 8.3 4.3 - 8.3 minutes 10/27/2024 1:24 PM EDT [facility] Citrated Kaolin Maximum Amplitude (TEGECMOLIVER) 52.0 52.0 - 69.0 mm 10/27/2024 1:24 PM EDT [facility] Citrated Functional Fibrinogen W/Heparinase Maximum Amplitude(TEGEC MOLIVER) 20.1 15.0 - 34.0 mm 10/27/2024 1:24 PM EDT [facility] Citrated Rapid Teg W/Heparinase Maximum Amplitude (TEGECMOLIVER) 49.4(L) 53.0 - 69.0 mm 10/27/2024 1:24 PM EDT [facility] Citrated Kaolin w/Heparinase Percent Lysis (TEGECMOLIVER) 0.0 0.0 - 3.2 % 10/27/2024 1:24 PM EDT [facility] Whole Blood (Citrate) 10/27/2024 12:07 PM EDT 10/27/2024 12:09 PM EDT Kemar Sahni MD LAB BLOOD ORDERABLES Final Result Performing Organization Address [facility]/ZIP Co de Phone Number [facility] [address] [facility] * (ABNORMAL) POC Glucose Monitoring Device (10/27/2024 12:01 PM EDT) POC Glucose Monitoring Device 121(H) 70 - 100 mg/dL 10/27/2024 12:02 PM EDT [facility] Blood 10/27/2024 12:0 1 PM EDT 10/27/2024 12:01 PM EDT Harvey Domínguez III, MD POINT OF CARE TEST ORDERABLES Final Result [facility] [address] * (ABNORMAL) POC Glucose Monitoring Device (10/27/2024 10:59 AM EDT) POC Glucose Monitoring Device 126(H) 70 - 100 mg/dL 10/27/2024 11:10 AM EDT [facility] Blood 10/27/2024 10:5 9 AM EDT 10/27/2024 11:10 AM EDT Harvey Domínguez III, MD POINT OF CARE TEST ORDERABLES Final Result Performing Organization Address [facility] Co de Phone Number [facility] [address] * ECG 12 lead (MUSE) (10/27/2024 10:17 AM EDT) 10/27/2024 10:1 7 AM EDT Narrative MUSE - 10/27/2024 2:51 PM EDT Ventricular Rate: 91 BPM Atrial Rate: 91 BPM P-R Interval: 168 ms QRS Duration: 90 ms QT: 274 ms QTc: 337 ms P [place]: 60 degrees R [place]: -30 degrees T [place]: -15 degrees Diagnosis Line: NORMAL SINUS RHYTHM ^ LEFT AXIS DEVIATION, LEFT ANTERIOR HEMIBLOCK ^ NONSPECIFIC T WAVE CHANGE ^ ABNORMAL ECG ^ ^ Confirmed by MD ROLLY, [facility] ([id number]) on 10/27/2024 2:51:52 PM Shay Sifuentes MD ECG ORDERABLES Final Result Performing Organization Address [facility] Co de Phone Number MUSE * (ABNORMAL) POC Glucose Monitoring Device (10/27/2024 10:00 AM EDT) [facility] POC Glucose Monitoring Device 121(H) 70 - 100 mg/dL 10/27/2024 10:01 AM EDT [facility] Blood 10/27/2024 10:0 0 AM EDT 10/27/2024 10:01 AM EDT Harvey Domínguez III, MD POINT OF CARE TEST ORDERABLES Final Result Performing Organization Address City/[facility] Co de Phone Number [facility] [address] [facility] [place] [address], [facility] * US Renal Transplant (10/27/2024 9:51 AM [...] US ORDERABLES Final Result * US Duplex [id number] Comp (10/27/2024 9:51 AM EDT) Anatomical Region [...] EXAM: US ABDOMEN LIMITED EXAM: US DUPLEX [id number] COMPLETE INDICATION: Post-op liver transplant COMPARISON: None [...] absent.. Pancreas: Obscured by overlying bowel gas. [place] right kidney: 12.5 cm in length. Normal [...] EXAM: US ABDOMEN LIMITED EXAM: US DUPLEX [id number] COMPLETE INDICATION: Post-op liver transplant COMPARISON: None [...] absent.. Pancreas: Obscured by overlying bowel gas. [place] right kidney: 12.5 cm in length. Normal [...] 10:38 AM EDT us Sveta Judge MD [facility] [place] EXAM: US ABDOMEN LIMITED EXAM: US DUPLEX [id number] COMPLETE INDICATION: Post-op liver transplant COMPARISON: None [...] absent.. Pancreas: Obscured by overlying bowel gas. [place] right kidney: 12.5 cm in length. Normal [...] EXAM: US ABDOMEN LIMITED EXAM: US DUPLEX [id number] COMPLETE INDICATION: Post-op liver transplant COMPARISON: None [...] absent.. Pancreas: Obscured by overlying bowel gas. [place] right kidney: 12.5 cm in length. Normal [...] 10:38 AM EDT us Sveta Judge MD IMG US ORDERABLES Final Result * CARISA Rhythm Strip - Scan (10/27/2024 9:25 AM EDT) us Scanning [place] SCAN DOCS - NO RESULTS Final Res ult * (ABNORMAL) POC Glucose Monitoring Device (10/27/2024 9:05 AM EDT) POC Glucose Monitoring Device 118(H) 70 - 100 mg/dL 10/27/2024 9:06 AM EDT [facility] Blood 10/27/2024 9:05 AM EDT 10/27/2024 9:06 AM EDT us Harvey Domínguez III, MD POINT OF CARE TEST ORDERABLES Final Result [facility] [address] [place] [address], [facility] * X-ray Portable Chest (10/27/2024 8:58 AM [...] - 15.1 seconds 10/27/2024 8:35 AM EDT [facility] INR 1.2(H) 0.9 - 1.1 10/27/2024 8:35 AM EDT [facility] Comment: RECOMMENDED THERAPEUTIC RANGES USING INR : Stable oral anticoagulant therapy: 2.0 - 3.0 Mechanical prosthetic heart valve: 2.5 - 3.5 Recurrent acute myocardial infarction: 2.5 - 3.5 Plasma 10/27/2024 8:16 AM EDT 10/27/2024 8:20 AM EDT John Moreno MD LAB BLOOD ORDERABLES Final R esult Performing Organization Address City/[facility]/ZIP Co de Phone Number [facility] [address] * Magnesium (10/27/2024 8:00 AM EDT) Pathologist [facility] Magnesium 1.8 1.5 - 2.5 mg/dL 10/27/2024 10:50 AM EDT [facility] Plasma 10/27/2024 8:00 AM EDT 10/27/2024 10:31 AM EDT Kemar Sahni MD LAB BLOOD ORDERABLES Final Result [facility] [address] * (ABNORMAL) Renal Function Panel w/EGFR (10/27/2024 8:00 AM EDT) Sodium 142 133 - 146 mmol/L 10/27/2024 10:18 AM EDT [facility] Potassium 3.0(L) 3.5 - 5.3 mmol/L 10/27/2024 10:18 AM EDT [facility] Chloride 109 98 - 110 mmol/L 10/27/2024 10:18 AM EDT [facility] CO2 21 21 - 33 mmol/L 10/27/2024 10:18 AM EDT [facility] Anion Gap 12 3 - 16 mmol/L 10/27/2024 10:18 AM EDT [facility] BUN 59(H) 7 - 25 mg/dL 10/27/2024 10:18 AM EDT [facility] Creatinine 2.54(H) 0.60 - 1.30 mg/dL 10/27/2024 10:18 AM EDT [facility] Glucose 111(H) 70 - 100 mg/dL 10/27/2024 10:18 AM EDT [facility] Calcium 9.1 8.6 - 10.3 mg/dL 10/27/2024 10:18 AM EDT [facility] Phosphorus 5.5(H) 2.1 - 4.7 mg/dL 10/27/2024 10:18 AM EDT [facility] Albumin 3.0(L) 3.5 - 5.7 g/dL 10/27/2024 10:18 AM EDT [facility] Osmolality, Calculated 311(H) 278 - 305 mOsm/kg 10/27/2024 10:18 AM EDT [facility] EGFR 32 10/27/2024 10:18 AM T [facility] Comment:As of 2021, [...] AM EDT 10/27/2024 9:58 AM EDT us Kemar Sahni MD LAB BLOOD ORDERABLES Final Result [facility] [address] [place] [address], [facility] * (ABNORMAL) Hepatic Function Panel, STAT (10/27/2024 8:00 AM EDT) Total Bilirubin 1.3 0.0 - 1.5 mg/dL 10/27/2024 8:51 AM EDT [facility] Bilirubin, Direct 0.93(H) 0.00 - 0.40 mg/dL 10/27/2024 8:51 AM EDT [facility] AST 88(H) 13 - 39 U/L 10/27/2024 8:51 AM EDT [facility] ALT 149(H) 7 - 52 U/L 10/27/2024 8:51 AM EDT [facility] Alkaline Phosphatase 26(L) 36 - 125 U/L 10/27/2024 8:51 AM EDT [facility] Total Protein 4.0(L) 6.4 - 8.9 g/dL 10/27/2024 8:51 AM EDT [facility] Albumin 3.0(L) 3.5 - 5.7 g/dL 10/27/2024 8:51 AM EDT [facility] Bilirubin, Indirect 0.37 0.00 - 1.10 mg/dL 10/27/2024 8:51 AM EDT [facility] Plasma 10/27/2024 8:00 AM EDT 10/27/2024 8:20 AM EDT us Harvey Domínguez III, MD LAB BLOOD ORDERABLE S Final Result [facility] [address] [place] [address], [facility] * (ABNORMAL) Lactic Acid, STAT (10/27/2024 8:00 AM EDT) Lactate 0.4(L) 0.5 - 2.2 mmol/L 10/27/2024 8:43 AM EDT [facility] Plasma 10/27/2024 8:00 AM EDT 10/27/2024 8:20 AM EDT us Harvey Domínguez III, MD LAB BLOOD ORDERABLE S Final Result [facility] [address] [place] [address], [facility] * (ABNORMAL) Blood Gas, Arterial, STAT (10/27/2024 8:00 AM EDT) O2 Sat, Arterial 100 10/27/2024 8:23 AM EDT [facility] pH, Arterial 7.36 7.35 - 7.45 10/27/2024 8:23 AM EDT [facility] pCO2, Arterial 37 35 - 45 mm Hg 10/27/2024 8:23 AM EDT [facility] pO2, Arterial 245(H) 80 - 100 mm Hg 10/27/2024 8:23 AM EDT [facility] HCO3, Arterial 22 22 - 26 mmol/L 10/27/2024 8:23 AM EDT [facility] CO2 Content,Arteri al 22(L) 23 - 27 mmol/L 10/27/2024 8:23 AM EDT [facility] Base Excess, Arterial -4.2(L) -2.0 - 3.0 mmol/L 10/27/2024 8:23 AM EDT [facility] %HBO2, Arterial 96.5 95.0 - 98.0 % 10/27/2024 8:23 AM EDT [facility] Carboxyhemoglo bin, Arterial 2.2 % 10/27/2024 8:23 AM EDT [facility] Comment: CARBOXYHEMOGLOBIN (CO) REFERENCE RANGES: Non-Smokers: <2 % Smokers: <8 % TOXIC: >20 % Methemoglobin, Arterial 1.2 0.0 - 1.5 % 10/27/2024 8:23 AM EDT [facility] Reduced hemoglobin, Arterial 0.0 0.0 - 5.0 % 10/27/2024 8:23 AM EDT [facility] Blood, Arterial 10/27/2024 8 :00 AM EDT 10/27/2024 8:19 AM EDT Narrative [facility] - 10/27/2024 8:23 AM EDT Specimen is beyond 15 minutes from time of collection. Results may be compromised. Review results critically. Kemar Sahni MD LAB BLOOD ORDERABLES Final Result Performing Organization Address City/[facility]/ZIP Co de Phone Number [facility] [address] * (ABNORMAL) TEG-Bypass/ECMO/Liver HN (Factor function, Platelet/Fibrin Clot Strength w/Clot Breakdown, Heparinase In All Channels) (10/27/2024 8:00 AM EDT) [facility] Citrated Kaolin Reaction Time (TEGECMOLIVER) 7.8 4.6 - 9.1 minutes 10/27/2024 9:39 AM EDT [facility] Citrated Kaolin W/Heparinase Reaction Time (TEGECMOLIVER) 8.0 4.3 - 8.3 minutes 10/27/2024 9:39 AM EDT [facility] Citrated Kaolin Maximum Amplitude (TEGECMOLIVER) 52.7 52.0 - 69.0 mm 10/27/2024 9:39 AM EDT [facility] Citrated Functional Fibrinogen W/Heparinase Maximum Amplitude(TEGEC MOLIVER) 19.0 15.0 - 34.0 mm 10/27/2024 9:39 AM EDT [facility] Citrated Rapid Teg W/Heparinase Maximum Amplitude (TEGECMOLIVER) 49.5(L) 53.0 - 69.0 mm 10/27/2024 9:39 AM EDT [facility] Citrated Kaolin w/Heparinase Percent Lysis (TEGECMOLIVER) 0.0 0.0 - 3.2 % 10/27/2024 9:39 AM EDT [facility] Whole Blood (Citrate) 10/27/2024 8:00 AM EDT 10/27/2024 8:19 AM EDT Kemar Sahni MD LAB BLOOD ORDERABLES Final Result [facility] [address] * (ABNORMAL) Katie-Watkins virus VCA IgG Antibody (10/27/2024 8:00 AM EDT) EBV VCA IgG Positive( A) Negative 10/27/2024 11:30 AM EDT [facility] Comment:Presence of detectab le VCA IgG antibodies. 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 EBV IGG NUM 314.00(H) 0.00 - 17.99 U/mL 10/27/2024 11:30 AM EDT [facility] Serum 10/27/2024 8:00 AM EDT 10/27/2024 8:20 AM EDT Kemar Sahni MD LAB BLOOD ORDERABLES Final Result Performing Organization Address [facility] Co de Phone Number [facility] [address] [facility]. [address] * Hemoglobin A1c (10/27/2024 8:00 AM EDT) Hemoglobin A1C 5.0 4.0 - 5.6 % 10/27/2024 11:12 AM EDT [facility] Comment: Hemoglobin A1c Interpretation [...] Result Performing Organization Address [facility] Co de Phone Number [facility] [address] * (ABNORMAL) POC Glucose Monitoring Device (10/27/2024 7:59 AM EDT) POC Glucose Monitoring Device 113(H) 70 - 100 mg/dL 10/27/2024 7:59 AM EDT [facility] Blood 10/27/2024 7:59 AM EDT 10/27/2024 7:59 AM EDT us Harvey Domínguez III, MD POINT OF CARE TEST ORDERABLES Final Result [facility] [address] * X-ray Abdomen AP view (10/27/2024 [...] Cryoprecipitate, 1 Units (10/27/2024 6:16 AM EDT) [facility] Signature Product Code Q8823O83 HCLL Unit Number [id number] HCLL Dispense Status Presumed Transfused_PT HCLL Blood Expiration Date HCLL Coding System KHVV253 HCLL Product Code C5041T41 HCLL Unit Number [id number] HCLL Dispense Status Presumed Transfused_PT HCLL Blood Expiration Date 175904859670 HCLL Coding System BVTN245 HCLL Blood Bank Product John Pina MD BLOOD BANK PRODUCT ORDERABLES F inal Result HCLL * Prepare Platelets, leukoreduced, 1 Units (10/27/2024 6:16 AM EDT) Product Code A5257P68 HCLL Unit Number [id number] HCLL Dispense Status Presumed Transfused_PT HCLL Blood Expiration Date 770708218020 HCLL Coding System BDKV076 HCLL Blood Bank Product Eber Quinones MD BLOOD BANK PRODUCT ORDER PAL Final Result Performing Organization Address [facility] de Phone Number HCLL * Prepare Cryoprecipitate, 1 Units (10/27/2024 6:16 AM EDT) Product Code J7274O67 HCLL Unit Number [id number] HCLL Dispense Status Presumed Transfused_PT HCLL Blood Expiration Date HCLL Coding System BPVZ239 HCLL Product Code G1838H26 HCLL Unit Number [id number] HCLL Dispense Status Presumed Transfused_PT HCLL Blood Expiration Date 134993091266 HCLL Coding System ENLR632 HCLL Blood Bank Product Eber Quinones MD BLOOD BANK PRODUCT ORDER PAL Final Result Performing Organization Address [facility] de Phone Number HCLL * Prepare Fresh Frozen Plasma, 10 Units (10/27/2024 6:16 AM EDT) Product Code N8762G26 HCLL Unit Number [id number] HCLL Dispense Status Presumed Transfused_PT HCLL Blood Expiration Date HCLL Coding System FIAD723 HCLL Product Code D7091W59 HCLL Unit Number [id number] HCLL Dispense Status Presumed Transfused_PT HCLL Blood Expiration Date 447078701740 HCLL Coding System LVNJ552 HCLL Product Code M3502H47 HCLL Unit Number [id number] HCLL Dispense Status Presumed Transfused_PT HCLL Blood Expiration Date 285409191329 HCLL Coding System NKGH990 HCLL Product Code U7163D92 HCLL Unit Number [id number] HCLL Dispense Status Presumed Transfused_PT HCLL Blood Expiration Date 224703784763 HCLL Coding System FAMA978 HCLL Product Code P3850D99 HCLL Unit Number [id number] HCLL Dispense Status Released from Crossmatch_RE HCLL Blood Expiration Date 670710129522 HCLL Coding System ERDP354 HCLL Product Code N8091X51 HCLL Unit Number [id number] HCLL Dispense Status Released from Crossmatch_RE HCLL Blood Expiration Date HCLL Coding System CJGO542 HCLL Product Code F3178R81 HCLL Unit Number [id number] HCLL Dispense Status Presumed Transfused_PT HCLL Blood Expiration Date HCLL Coding System UESF143 HCLL Product Code S4248S08 HCLL Unit Number [id number] HCLL Dispense Status Presumed Transfused_PT HCLL Blood Expiration Date 659812676797 HCLL Coding System BWQR432 HCLL Product Code R3921A10 HCLL Unit Number [id number] HCLL Dispense Status Presumed Transfused_PT HCLL Blood Expiration Date 530951357427 HCLL Coding System JITT379 HCLL Product Code U0009V18 HCLL Unit Number [id number] HCLL Dispense Status Presumed Transfused_PT HCLL Blood Expiration Date 039725951463 HCLL Coding System KCFD229 HCLL Blood Bank Product us Leandra Og MD BLOOD BANK PRODUCT ORD ERABLES Final Result HC[facility] * Prepare Platelets, leukoreduced, 1 Units (10/27/2024 6:16 AM EDT) Product Code P2156M81 HCLL Unit Number [id number] HCLL Dispense Status Presumed Transfused_PT HCLL Blood Expiration Date 656301508154 HCLL Coding System FBXY305 HCLL Blood Bank Product Ben Blake MD BLOOD BANK PRODUCT ORDERABLES Final Result [facility] * Prepare Fresh Frozen Plasma (10/27/2024 6:15 AM EDT) Product Code E1219Q29 HCLL Unit Number [id number] HCLL Dispense Status Presumed Transfused_PT HCLL Blood Expiration Date HCLL Coding System RGMN515 HCLL Product Code G4174J73 HCLL Unit Number [id number] HCLL Dispense Status Released from Crossmatch_RE HCLL Blood Expiration Date HCLL Coding System JFRB969 HCLL Product Code H2439Z13 HCLL Unit Number [id number] HCLL Dispense Status Presumed Transfused_PT HCLL Blood Expiration Date HCLL Coding System SXSC589 HCLL Product Code P3069F02 HCLL Unit Number [id number] HCLL Dispense Status Presumed Transfused_PT HCLL Blood Expiration Date HCLL Coding System TJTG821 HCLL Product Code M9281E18 HCLL Unit Number [id number] HCLL Dispense Status Released from Crossmatch_RE HCLL Blood Expiration Date HCLL Coding System LNQI156 HCLL Attending Provider Unknown BLOOD BANK PRODUCT OR DERABLES Final Result HC[facility] * Prepare RBC, leukoreduced (10/27/2024 6:15 AM EDT) Product Code L7950K57 HCLL Unit Number [id number] HCLL Dispense Status Presumed Transfused_PT HCLL Blood Expiration Date 922432385982 HCLL Coding System LNJM026 HCLL Product Code F9070K02 HCLL Unit Number [id number] HCLL Dispense Status Released from Crossmatch_RE HCLL Blood Expiration Date HCLL Coding System OKFZ999 HCLL Product Code J9863I01 HCLL Unit Number [id number] HCLL Dispense Status Released from Crossmatch_RE HCLL Blood Expiration Date 740497510591 HCLL Coding System SFJP491 HCLL Product Code Z2850A43 HCLL Unit Number [id number] HCLL Dispense Status Released from Crossmatch_RE HCLL Blood Expiration Date 427051477430 HCLL Coding System ELWS746 HCLL Product Code F1260O52 HCLL Unit Number [id number] HCLL Dispense Status Released from Crossmatch_RE HCLL Blood Expiration Date 615267660813 HCLL Coding System GXYJ098 HCLL us Attending Provider Unknown BLOOD BANK PRODUCT OR DERABLES Final Result [facility] * Prepare RBC, leukoreduced, 10 Units (10/27/2024 6:15 AM EDT) Product Code H9166D68 HCLL Unit Number [id number] HCLL Dispense Status Presumed Transfused_PT HCLL Blood Expiration Date HCLL Coding System PHCF263 HCLL Product Code H6723B70 HCLL Unit Number [id number] HCLL Dispense Status Presumed Transfused_PT HCLL Blood Expiration Date 439037054935 HCLL Coding System AEVG272 HCLL Product Code N0078D71 HCLL Unit Number [id number] HCLL Dispense Status Presumed Transfused_PT HCLL Blood Expiration Date HCLL Coding System OCIV108 HCLL Product Code F1651U70 HCLL Unit Number [id number] HCLL Dispense Status Presumed Transfused_PT HCLL Blood Expiration Date HCLL Coding System DFQB328 HCLL Product Code D5342H23 HCLL Unit Number [id number] HCLL Dispense Status Presumed Transfused_PT HCLL Blood Expiration Date HCLL Coding System HAWF264 HCLL Product Code V4727G48 HCLL Unit Number [id number] HCLL Dispense Status Presumed Transfused_PT HCLL Blood Expiration Date HCLL Coding System HZKM160 HCLL Product Code O8546T56 HCLL Unit Number [id number] HCLL Dispense Status Presumed Transfused_PT HCLL Blood Expiration Date HCLL Coding System OGSS605 HCLL Product Code N3321D62 HCLL Unit Number [id number] HCLL Dispense Status Presumed Transfused_PT HCLL Blood Expiration Date HCLL Coding System MROY620 HCLL Product Code N3867Q71 HCLL Unit Number [id number] HCLL Dispense Status Presumed Transfused_PT HCLL Blood Expiration Date HCLL Coding System JEYP888 HCLL Product Code F4296I30 HCLL Unit Number [id number] HCLL Dispense Status Presumed Transfused_PT HCLL Blood Expiration Date 016630376427 HCLL Coding System VJWK182 HCLL Blood Bank Product Leandra Og MD BLOOD BANK PRODUCT ORD ERABLES Final Result [facility] * Transfuse Platelets (10/27/2024 6:09 AM EDT) Ben Blake MD NURSING TREATMENT ORDERABLES - BLOOD ADMIN Final Result * (ABNORMAL) Arterial Blood Gas Panel (10/27/2024 6:09 AM EDT) O2Sat (ABGP) 100 10/27/2024 6:17 AM EDT [facility] pH (ABGP) 7.30(L) 7.35 - 7.45 10/27/2024 6:17 AM EDT [facility] PCO2 (ABGP) 41 35 - 45 mm Hg 10/27/2024 6:17 AM EDT [facility] PO2 (ABGP) 192(H) 80 - 100 mm Hg 10/27/2024 6:17 AM EDT [facility] HCO3 (ABGP) 21(L) 22 - 26 mmol/L 10/27/2024 6:17 AM EDT [facility] CO2 Content (ABGP) 22(L) 23 - 27 mmol/L 10/27/2024 6:17 AM T [facility] Base Excess (ABGP) -5.7(L) -2.0 - 3.0 mmol/L 10/27/2024 6:17 AM T [facility] Sodium (ABGP) 138 136 - 146 mEq/L 10/27/2024 6:17 AM [facility] Potassium (ABGP) 3.3(L) 3.5 - 5.0 mEq/L 10/27/2024 6:17 AM [facility] Comment:In the event of in-v itro hemolysis, potassium results may be falsely elevated. Always interpret lab results in conjunction with clinical findings. If hemolysis is suspected, a serum sample may be collected for repeat assessment of potassium. Calcium, Free (ABGP) 5.28 4.50 - 5.30 mg/dL 10/27/2024 6:17 AM [facility] Glucose (ABGP) 112(H) 70 - 100 mg/dL 10/27/2024 6:17 AM [facility] Comment:There is interferenc e with whole blood glucose results on this method when Hematocrit is <25% or >60%. HCT (ABGP) 20.0(L) 40.0 - 52.0 % 10/27/2024 6:17 AM [facility] HGB (ABGP) 6.5(L) 14.0 - 18.0 g/dL 10/27/2024 6:17 AM [facility] %HBO2 (ABGP) 96.8 95.0 - 98.0 % 10/27/2024 6:17 AM [facility] Carboxyhgb (ABGP) 2.1 % 025 6:17 AM [facility] Comment: CARBOXYHEMOGLOBIN (CO) REFERENCE RANGES: Non-Smokers: <2 % Smokers: <8 % TOXIC: >20 % Methemoglobin (ABGP) 1.0 0.0 - 1.5 % 10/27/2024 6:17 AM [facility] Reduced Hemoglobin (ABGP) 0.2 0.0 - 5.0 % 10/27/2024 6:17 AM [facility] Lactic Acid (ABGP) 0.4(L) 0.5 - 1.6 mmol/L 10/27/2024 6:17 AM EDT [facility] Blood, Arterial 10/27/2024 6 :09 AM EDT 10/27/2024 6:14 AM EDT us Ben Blake MD LAB BLOOD ORDERABLES Final Re sult Performing Organization Address [facility]/ZIP Co de Phone Number [facility] [address] [facility]. [address] * Transfuse Fresh Frozen Plasma (10/27/2024 [...] Glucose Monitoring Device (10/27/2024 4:46 AM EDT) [facility] POC Glucose Monitoring Device 124(H) 70 - 100 mg/dL 10/27/2024 4:47 AM EDT [facility] Blood 10/27/2024 4:46 AM EDT 10/27/2024 4:47 AM EDT Harvey Domínguez III, MD POINT OF CARE TEST ORDERABLES Final Result Performing Organization Address [facility]/ZIP Co de Phone Number [facility] [address] [facility]. [address] * Transfuse Platelets (10/27/2024 4:24 AM [...] O2Sat (ABGP) 100 10/27/2024 3:21 AM EDT [facility] pH (ABGP) 7.32(L) 7.35 - 7.45 10/27/2024 3:21 AM EDT [facility] PCO2 (ABGP) 38 35 - 45 mm Hg 10/27/2024 3:21 AM EDT [facility] PO2 (ABGP) 176(H) 80 - 100 mm Hg 10/27/2024 3:21 AM EDT [facility] HCO3 (ABGP) 20(L) 22 - 26 mmol/L 10/27/2024 3:21 AM EDT [facility] CO2 Content (ABGP) 21(L) 23 - 27 mmol/L 10/27/2024 3:21 AM EDT [facility] Base Excess (ABGP) -6.0(L) -2.0 - 3.0 mmol/L 10/27/2024 3:21 AM EDT [facility] Sodium (ABGP) 138 136 - 146 mEq/L 10/27/2024 3:21 AM EDT [facility] Potassium (ABGP) 3.0(L) 3.5 - 5.0 mEq/L 10/27/2024 3:21 AM EDT [facility] Comment:In the event of in-v itro hemolysis, potassium results may be falsely elevated. Always interpret lab results in conjunction with clinical findings. If hemolysis is suspected, a serum sample may be collected for repeat assessment of potassium. Calcium, Free (ABGP) 5.28 4.50 - 5.30 mg/dL 10/27/2024 3:21 AM EDT [facility] Glucose (ABGP) 108(H) 70 - 100 mg/dL 10/27/2024 3:21 AM EDT [facility] Comment:There is interferenc e with whole blood glucose results on this method when Hematocrit is <25% or >60%. HCT (ABGP) 22.0(L) 40.0 - 52.0 % 10/27/2024 3:21 AM EDT [facility] HGB (ABGP) 7.3(L) 14.0 - 18.0 g/dL 10/27/2024 3:21 AM EDT [facility] %HBO2 (ABGP) 97.3 95.0 - 98.0 % 10/27/2024 3:21 AM EDT [facility] Carboxyhgb (ABGP) 1.9 % 025 3:21 AM EDT [facility] Comment: CARBOXYHEMOGLOBIN (CO) REFERENCE RANGES: Non-Smokers: <2 % Smokers: <8 % TOXIC: >20 % Methemoglobin (ABGP) 0.8 0.0 - 1.5 % 10/27/2024 3:21 AM EDT [facility] Reduced Hemoglobin (ABGP) 0.0 0.0 - 5.0 % 10/27/2024 3:21 AM EDT [facility] Lactic Acid (ABGP) 0.3(L) 0.5 - 1.6 mmol/L 10/27/2024 3:21 AM EDT [facility] Blood, Arterial 10/27/2024 3 :07 AM EDT 10/27/2024 3:14 AM EDT Ben Blake MD LAB BLOOD ORDERABLES Final Re sult Performing Organization Address City/State/[facility] Co de Phone Number [facility] [address] * Surgical Pathology Exam (10/27/2024 2:38 AM EDT) Tissue LEFT KIDNEY STRUCTURE / Unknown 10/27/2024 2:38 AM EDT Narrative [facility] - 10/27/2024 12:00 AM EDT CASE: [id number] PATIENT: BLAIR GILBERT Clinical History: Transplant kidney with bile duct reconstruction Pre-Operative Diagnosis: Acute kidney injury superimposed on CKD Post-Operative Diagnosis: None Given Specimen(s) Submitted: A. baseline renal biopsy ; B. right lobe liver biopsy; C. left lobe liver biopsy CPT Code(s): 20560 X 1; 78319 X 2; 69348 X 4 Additional Information: FINAL DIAGNOSIS: A. [...] parenchyma, which is entirely submitted in cassette [id number] A1. (NAA Mckeon/rr) B. Received in formalin, [...] submitted between blue biopsy sponges in cassette [id number] C1-C2. (NAA Mckeon/ns) Microscopic Description: I, the attending pathologist, have personally reviewed all prosector/resident work and pathology slides to determine final diagnosis. Control Materials Reacted Appropriately. Final Diagnosis performed by CLARE FALL MD Pathologist Electronically signed 10/31/2024 01:07:09 PM The Pathologist signing this report is located at [facility], [address] [place] [address], [id number], , CLIA ID: [id number] ADDENDUM: A. Kidney, allograft, baseline, wedge biopsy: [...] Pathologist signing this report is located at [facility], [address] [place] [address], [id number], , CLIA ID: [id number] Kemar Sahni MD PATHOLOGY/CYTOLOGY ORDERABL ES Edited Result - Final Performing Organization Address [facility]/ZIP Co de Phone Number [facility] * Anaerobic culture (10/27/2024 2:15 AM EDT) Culture Result No Anaerobes Isolated in 5 Days [facility] Fluid SPECIMEN FROM KIDNEY / Unknown 10/27/2024 2:15 AM EDT 10/27/2024 4:24 AM EDT Narrative [facility] - 10/31/2024 11:43 AM EDT 1) perfusate Harvey Domínguez III, MD MICROBIOLOGY - GENE RAL ORDERABLES Final Result Performing Organization Address [facility]/ZIP Co de Phone Number [address] * Fungus culture (10/27/2024 2:15 AM EDT) Culture Result No Fungus Isolated At 4 Weeks [facility] Fluid SPECIMEN FROM KIDNEY / Unknown 10/27/2024 2:15 AM EDT 10/27/2024 4:24 AM EDT Narrative [facility] - 11/24/2024 7:52 AM EDT 1) perfusate Harvey Domínguez III, MD MICROBIOLOGY - GENE RAL ORDERABLES Final Result Performing Organization Address [facility] de Phone Number [facility] [address] [facility] * Routine Culture plus Stain (10/27/2024 2:15 AM EDT) Gram Stain Result No Polymorphonuclear Leukocytes Seen [facility] Gram Stain Result No Organisms Seen; [facility] Culture Result No Growth After 3 Days [facility] Fluid SPECIMEN FROM KIDNEY / Unknown 10/27/2024 2:15 AM EDT 10/27/2024 4:24 AM EDT Narrative [facility] - 10/30/2024 9:26 AM EDT 1) perfusate Harvey Domínguez III, MD MICROBIOLOGY - GENE RAL ORDERABLES Final Result Performing Organization Address [facility] de Phone Number [facility] [address] [facility] * Transfuse Platelets Transfusion Rate: Per dept routine (10/27/2024 1:52 AM EDT) John Pina MD NURSING TREATMENT ORDERABLES - BLOOD ADMIN Final Result Performing Organization Address [facility] de Phone Number EXTERNAL * Transfuse Platelets Transfusion Rate: Per dept routine, 1 Units (10/27/2024 1:52 AM EDT) John Pina MD NURSING TREATMENT ORDERABLES - BLOOD ADMIN Final Result Performing Organization Address [facility] de Phone Number EXTERNAL * (ABNORMAL) TEG-Standard Global Hemostasis (Rapid TEG with Heparin Effect, Contains a Baseline TEG) (10/27/2024 1:51 AM EDT) Citrated Kaolin Reaction Time (TEGHEPARINASE) 10.6(H) 4.6 - 9.1 minutes 10/27/2024 2:44 AM EDT [facility] Citrated Rapid Teg Maximum Amplitude (TEGHEPARINASE) 42.3(L) 52.0 - 70.0 mm 10/27/2024 2:44 AM EDT [facility] Citrated Functional Fibrinogen Maximum Amplitude (TEGHEPARINASE) 15.0 15.0 - 32.0 mm 10/27/2024 2:44 AM EDT [facility] Citrated Kaolin W/Heparinase Reaction Time (TEGHEPARINASE) 10.5(H) 4.3 - 8.3 minutes 10/27/2024 2:44 AM EDT [facility] Citrated Kaolin K-Time (TEGHEPARINASE) 2.9(A) 0.8 - 2.1 minutes 10/27/2024 2:44 AM EDT [facility] Citrated Kaolin Angle (TEGHEPARINASE) 60.4(A) 63.0 - 78.0 degrees 10/27/2024 2:44 AM EDT [facility] Citrated Kaolin Maximum Amplitude (TEGHEPARINASE) 42.9(L) 52.0 - 69.0 mm 10/27/2024 2:44 AM EDT [facility] Citrated Functional Fibrinogen- Fibrinogen Level (TEGHEPARINASE) 273.7(L) 278.0 - 581.0 mg/dL 10/27/2024 2:44 AM EDT [facility] Whole Blood (Citrate) 10/27/2024 1:51 AM EDT 10/27/2024 2:03 AM EDT us John Pina MD LAB BLOOD ORDERABLES Final Resu lt [facility] [address] [place] [address], [facility] * (ABNORMAL) POC Glucose Monitoring Device (10/27/2024 1:50 AM EDT) Pathologist [facility] POC Glucose Monitoring Device 121(H) 70 - 100 mg/dL 10/27/2024 1:51 AM EDT [facility] Blood 10/27/2024 1:50 AM EDT 10/27/2024 1:51 AM EDT us Harvey Domínguez III, MD POINT OF CARE TEST ORDERABLES Final Result Performing Organization Address [facility] de Phone Number [facility] [address] [facility] * Transfuse Cryoprecipitate Transfusion Rate: Per dept routine (10/27/2024 1:25 AM EDT) us John Pina MD NURSING TREATMENT ORDERABLES - BLOOD ADMIN Final Result Performing Organization Address [facility] de Phone Number EXTERNAL * Transfuse Cryoprecipitate Transfusion Rate: Per dept routine, 1 Units (10/27/2024 1:25 AM EDT) us John Pina MD NURSING TREATMENT ORDERABLES - BLOOD ADMIN Final Result Performing Organization Address [facility] de Phone Number EXTERNAL * (ABNORMAL) POC Glucose Monitoring Device (10/27/2024 1:21 AM EDT) [facility] POC Glucose Monitoring Device 123(H) 70 - 100 mg/dL 10/27/2024 1:22 AM EDT [facility] Blood 10/27/2024 1:21 AM EDT 10/27/2024 1:21 AM EDT us Harvey Domínguez III, MD POINT OF CARE TEST ORDERABLES Final Result Performing Organization Address [facility] de Phone Number [facility] [address] [facility] * Transfuse Fresh Frozen Plasma Transfusion Rate: Per dept routine (10/27/2024 1:03 AM EDT) us John Pina MD NURSING TREATMENT ORDERABLES - BLOOD ADMIN Final Result Performing Organization Address [facility] de Phone Number EXTERNAL * Transfuse Fresh Frozen Plasma Transfusion Rate: Per dept routine, 1 Units (10/27/2024 1:03 AM EDT) us John Pina MD NURSING TREATMENT ORDERABLES - BLOOD ADMIN Final Result Performing Organization Address [facility]/ZIP Co de Phone Number EXTERNAL * Calcium Free, Serum (10/27/2024 12:13 AM EDT) Free Calcium, Ser 5.20 4.40 - 5.40 mg/dL 10/27/2024 12:37 AM EDT [facility] Comment:Free calcium levels vary inversely with pH by approximately 5% for each 0.1 unit of pH change. Assay results have been normalized to pH = 7.40. Serum 10/27/2024 12:1 3 AM EDT 10/27/2024 12:29 AM EDT Narrative [facility] - 10/27/2024 12:37 AM EDT This test has been developed and its performance characteristics determined by [facility] which is certified under the [...] MD LAB BLOOD ORDERABLES Final Resu lt [facility] [address] [place] [address], [facility] * (ABNORMAL) Blood Gas, Arterial, STAT (10/27/2024 12:13 AM EDT) O2 Sat, Arterial 100 10/27/2024 12:23 AM EDT [facility] FIO2 30 10/27/2024 12:23 AM EDT [facility] pH, Arterial 7.32(L) 7.35 - 7.45 10/27/2024 12:23 AM EDT [facility] pCO2, Arterial 37 35 - 45 mm Hg 10/27/2024 12:23 AM EDT [facility] pO2, Arterial 137(H) 80 - 100 mm Hg 10/27/2024 12:23 AM EDT [facility] HCO3, Arterial 20(L) 22 - 26 mmol/L 10/27/2024 12:23 AM EDT [facility] CO2 Content,Arteri al 20(L) 23 - 27 mmol/L 10/27/2024 12:23 AM EDT [facility] Base Excess, Arterial -6.4(L) -2.0 - 3.0 mmol/L 10/27/2024 12:23 AM EDT [facility] %HBO2, Arterial 96.2 95.0 - 98.0 % 10/27/2024 12:23 AM EDT [facility] Carboxyhemoglo bin, Arterial 1.9 % 10/27/2024 12:23 AM EDT [facility] Comment: CARBOXYHEMOGLOBIN (CO) REFERENCE RANGES: Non-Smokers: <2 % Smokers: <8 % TOXIC: >20 % Methemoglobin, Arterial 1.5 0.0 - 1.5 % 10/27/2024 12:23 AM EDT [facility] Reduced hemoglobin, Arterial 0.4 0.0 - 5.0 % 10/27/2024 12:23 AM EDT [facility] Blood, Arterial 10/27/2024 1 2:13 AM EDT 10/27/2024 12:18 AM EDT us John Pina MD LAB BLOOD ORDERABLES Final Resu lt [facility] [address] [place] [id number], [facility] * (ABNORMAL) TEG-Bypass/ECMO/Liver HN (Factor function, Platelet/Fibrin Clot Strength w/Clot Breakdown, Heparinase In All Channels) (10/27/2024 12:13 AM EDT) [facility] Citrated Kaolin Reaction Time (TEGECMOLIVER) 9.1 4.6 - 9.1 minutes 10/27/2024 1:43 AM EDT [facility] Citrated Kaolin W/Heparinase Reaction Time (TEGECMOLIVER) 9.7(H) 4.3 - 8.3 minutes 10/27/2024 1:43 AM EDT [facility] Citrated Kaolin Maximum Amplitude (TEGECMOLIVER) <40.0(L) 52.0 - 69.0 mm 10/27/2024 1:43 AM EDT [facility] Citrated Functional Fibrinogen W/Heparinase Maximum Amplitude(TEGEC MOLIVER) 11.9(L) 15.0 - 34.0 mm 10/27/2024 1:43 AM EDT [facility] Citrated Rapid Teg W/Heparinase Maximum Amplitude (TEGECMOLIVER) 31.6(L) 53.0 - 69.0 mm 10/27/2024 1:43 AM EDT [facility] Citrated Kaolin w/Heparinase Percent Lysis (TEGECMOLIVER) 0.0 0.0 - 3.2 % 10/27/2024 1:43 AM EDT [facility] Whole Blood (Citrate) 10/27/2024 12:13 AM EDT 10/27/2024 12:18 AM EDT Kemar Sahni MD LAB BLOOD ORDERABLES Final Result [facility] [address] * (ABNORMAL) Lactic Acid (10/27/2024 12:13 AM EDT) Lactate 0.2(L) 0.5 - 2.2 mmol/L 10/27/2024 12:59 AM EDT [facility] Plasma 10/27/2024 12:1 3 AM EDT 10/27/2024 12:31 AM EDT Kemar Sahni MD LAB BLOOD ORDERABLES Final Result [facility] [address] * Magnesium (10/27/2024 12:13 AM EDT) Magnesium 1.8 1.5 - 2.5 mg/dL 10/27/2024 12:52 AM EDT [facility] Plasma 10/27/2024 12:1 3 AM EDT 10/27/2024 12:29 AM EDT Kemar Sahni MD LAB BLOOD ORDERABLES Final Result [facility] [address] [place] [address], [facility] * (ABNORMAL) Hepatic Function Panel (10/27/2024 12:13 AM EDT) Total Bilirubin 1.6(H) 0.0 - 1.5 mg/dL 10/27/2024 12:52 AM EDT [facility] Bilirubin, Direct 1.17(H) 0.00 - 0.40 mg/dL 10/27/2024 12:52 AM EDT [facility] AST 157(H) 13 - 39 U/L 10/27/2024 12:52 AM EDT [facility] ALT 261(H) 7 - 52 U/L 10/27/2024 12:52 AM EDT [facility] Alkaline Phosphatase 26(L) 36 - 125 U/L 10/27/2024 12:52 AM EDT [facility] Total Protein 3.8(L) 6.4 - 8.9 g/dL 10/27/2024 12:52 AM EDT [facility] Albumin 2.8(L) 3.5 - 5.7 g/dL 10/27/2024 12:52 AM EDT [facility] Bilirubin, Indirect 0.43 0.00 - 1.10 mg/dL 10/27/2024 12:52 AM EDT [facility] Plasma 10/27/2024 12:1 3 AM EDT 10/27/2024 12:29 AM EDT Kemar Sahni MD LAB BLOOD ORDERABLES Final Result [facility] [address] [facility] [place] [address], [facility] * (ABNORMAL) Protime-INR (10/27/2024 12:13 AM EDT) Protime 18.6(H) 12.1 - 15.1 seconds 10/27/2024 12:43 AM EDT [facility] INR 1.5(H) 0.9 - 1.1 10/27/2024 12:43 AM EDT [facility] Comment: RECOMMENDED THERAPEUTIC RANGES USING INR : Stable oral anticoagulant therapy: 2.0 - 3.0 Mechanical prosthetic heart valve: 2.5 - 3.5 Recurrent acute myocardial infarction: 2.5 - 3.5 Plasma 10/27/2024 12:1 3 AM EDT 10/27/2024 12:29 AM EDT Kemar Sahni MD LAB BLOOD ORDERABLES Final Result [facility] [address] [facility] [place] [id number], [facility] * (ABNORMAL) CBC (10/27/2024 12:13 AM EDT) WBC 5.0 3.8 - 10.8 10E3/uL 10/27/2024 12:59 AM EDT [facility] RBC 2.70(L) 4.20 - 5.80 10E6/uL 10/27/2024 12:59 AM EDT [facility] Hemoglobin 8.5(L) 13.2 - 17.1 g/dL 10/27/2024 12:59 AM EDT [facility] Hematocrit 23.9(L) 38.5 - 50.0 % 10/27/2024 12:59 AM EDT [facility] MCV 88.5 80.0 - 100.0 fL 10/27/2024 12:59 AM EDT [facility] MCH 31.5 27.0 - 33.0 pg 10/27/2024 12:59 AM EDT [facility] MCHC 35.6 32.0 - 36.0 g/dL 10/27/2024 12:59 AM EDT [facility] RDW 20.6(H) 11.0 - 15.0 % 10/27/2024 12:59 AM EDT [facility] Platelets 35(L) 140 - 400 10E3/uL 10/27/2024 12:59 AM EDT [facility] Comment: CNV Specimen checked for clots. None detected. MPV 7.6 7.5 - 11.5 fL 10/27/2024 12:59 AM EDT [facility] Whole Blood 10/27/2024 12:1 3 AM EDT 10/27/2024 12:29 AM EDT Kemar Sahni MD LAB BLOOD ORDERABLES Final Result [facility] [address] [place] [address], [facility] * (ABNORMAL) Renal Function Panel w/EGFR (10/27/2024 12:13 AM EDT) Sodium 141 133 - 146 mmol/L 10/27/2024 12:52 AM EDT [facility] Potassium 3.2(L) 3.5 - 5.3 mmol/L 10/27/2024 12:52 AM EDT [facility] Chloride 109 98 - 110 mmol/L 10/27/2024 12:52 AM EDT [facility] CO2 21 21 - 33 mmol/L 10/27/2024 12:52 AM EDT [facility] Anion Gap 11 3 - 16 mmol/L 10/27/2024 12:52 AM EDT [facility] BUN 64(H) 7 - 25 mg/dL 10/27/2024 12:52 AM EDT [facility] Creatinine 2.58(H) 0.60 - 1.30 mg/dL 10/27/2024 12:52 AM EDT [facility] Glucose 126(H) 70 - 100 mg/dL 10/27/2024 12:52 AM EDT [facility] Calcium 8.9 8.6 - 10.3 mg/dL 10/27/2024 12:52 AM EDT [facility] Phosphorus 5.3(H) 2.1 - 4.7 mg/dL 10/27/2024 12:52 AM EDT [facility] Albumin 2.8(L) 3.5 - 5.7 g/dL 10/27/2024 12:52 AM EDT [facility] Osmolality, Calculated 312(H) 278 - 305 mOsm/kg 10/27/2024 12:52 AM EDT [facility] EGFR 31 10/27/2024 12:52 AM EDT [facility] Comment:As of 2021, [...] Result Performing Organization Address [facility] Co de Phone Number [facility] [address] [facility] * (ABNORMAL) POC Glucose Monitoring Device (10/27/2024 12:08 AM EDT) POC Glucose Monitoring Device 121(H) 70 - 100 mg/dL 10/27/2024 12:08 AM EDT [facility] Blood 10/27/2024 12:0 8 AM EDT 10/27/2024 12:08 AM EDT Harvey Domínguez III, MD POINT OF CARE TEST ORDERABLES Final Result Performing Organization Address [facility]/ZIP Co de Phone Number [facility] [address] * (ABNORMAL) POC Glucose Monitoring Device (10/26/2024 11:15 PM EDT) POC Glucose Monitoring Device 120(H) 70 - 100 mg/dL 10/26/2024 11:15 PM EDT [facility] Blood 10/26/2024 11:1 5 PM EDT 10/26/2024 11:15 PM EDT Harvey Domínguez III, MD POINT OF CARE TEST ORDERABLES Final Result [facility] [address] [facility]. [address] * (ABNORMAL) TEG-Bypass/ECMO/Liver HN (Factor function, Platelet/Fibrin Clot Strength w/Clot Breakdown, Heparinase In All Channels) (10/26/2024 10:36 PM EDT) [facility] Citrated Kaolin Reaction Time (TEGECMOLIVER) 10.0(H) 4.6 - 9.1 minutes 10/26/2024 11:53 PM EDT [facility] Citrated Kaolin W/Heparinase Reaction Time (TEGECMOLIVER) 10.2(H) 4.3 - 8.3 minutes 10/26/2024 11:53 PM EDT [facility] Citrated Kaolin Maximum Amplitude (TEGECMOLIVER) <40.0(L) 52.0 - 69.0 mm 10/26/2024 11:53 PM EDT [facility] Citrated Functional Fibrinogen W/Heparinase Maximum Amplitude(TEGEC MOLIVER) 11.3(L) 15.0 - 34.0 mm 10/26/2024 11:53 PM EDT [facility] Citrated Rapid Teg W/Heparinase Maximum Amplitude (TEGECMOLIVER) 41.8(L) 53.0 - 69.0 mm 10/26/2024 11:53 PM EDT [facility] Citrated Kaolin w/Heparinase Percent Lysis (TEGECMOLIVER) 0.0 0.0 - 3.2 % 10/26/2024 11:53 PM EDT [facility] Whole Blood (Citrate) 10/26/2024 10:36 PM EDT 10/26/2024 10:43 PM EDT us Kemar Sahni MD LAB BLOOD ORDERABLES Final Result [facility] [address] [facility]. [address] * (ABNORMAL) POC Glucose Monitoring Device (10/26/2024 10:14 PM EDT) POC Glucose Monitoring Device 124(H) 70 - 100 mg/dL 10/26/2024 11:11 PM EDT [facility] Blood 10/26/2024 10:1 4 PM EDT 10/26/2024 11:11 PM EDT Harvey Domínguez III, MD POINT OF CARE TEST ORDERABLES Final Result [facility] [address] [facility] * (ABNORMAL) POC Glucose Monitoring Device (10/26/2024 9:16 PM EDT) POC Glucose Monitoring Device 119(H) 70 - 100 mg/dL 10/26/2024 9:18 PM EDT [facility] Blood 10/26/2024 9:16 PM EDT 10/26/2024 9:18 PM EDT Harvey Domínguez III, MD POINT OF CARE TEST ORDERABLES Final Result Performing Organization Address City/[facility]/ZIP Co de Phone Number [facility] [address] [facility] * (ABNORMAL) POC Glucose Monitoring Device (10/26/2024 8:05 PM EDT) POC Glucose Monitoring Device 113(H) 70 - 100 mg/dL 10/26/2024 8:06 PM EDT [facility] Blood 10/26/2024 8:05 PM EDT 10/26/2024 8:06 PM EDT us Harvey Domínguez III, MD POINT OF CARE TEST ORDERABLES Final Result [facility] [address] [facility] * (ABNORMAL) POC Glucose Monitoring Device (10/26/2024 7:02 PM EDT) POC Glucose Monitoring Device 111(H) 70 - 100 mg/dL 10/26/2024 7:03 PM EDT [facility] Blood 10/26/2024 7:02 PM EDT 10/26/2024 7:03 PM EDT us Harvey Domínguez III, MD POINT OF CARE TEST ORDERABLES Final Result [facility] [address] [facility] * Transfuse Cryoprecipitate Transfusion Rate: Per dept routine (10/26/2024 6:39 PM EDT) Result Tiburcio Pina MD NURSING TREATMENT ORDERABLES - BLOOD ADMIN Final Result Performing Organization Address City/[facility] Co de Phone Number EXTERNAL * Transfuse Cryoprecipitate Transfusion Rate: Per dept routine, 1 Units (10/26/2024 6:39 PM EDT) Result Tiburcio Pina MD NURSING TREATMENT ORDERABLES - BLOOD ADMIN Final Result Performing Organization Address City/[facility] Co de Phone Number EXTERNAL * (ABNORMAL) POC Glucose Monitoring Device (10/26/2024 6:33 PM EDT) POC Glucose Monitoring Device 110(H) 70 - 100 mg/dL 10/26/2024 6:34 PM EDT [facility] Blood 10/26/2024 6:33 PM EDT 10/26/2024 6:34 PM EDT Result Tiburcio Domínguez III, MD POINT OF CARE TEST ORDERABLES Final Result Performing Organization Address City/[facility] Co de Phone Number [facility] [address] * Transfuse Cryoprecipitate Transfusion Rate: Per dept routine (10/26/2024 6:22 PM EDT) Result Tiburcio Pina MD NURSING TREATMENT ORDERABLES - BLOOD ADMIN Final Result Performing Organization Address [facility] de Phone Number EXTERNAL * Transfuse Cryoprecipitate Transfusion Rate: Per dept routine, 1 Units (10/26/2024 6:22 PM EDT) John Pina MD NURSING TREATMENT ORDERABLES - BLOOD ADMIN Final Result Performing Organization Address [facility] Co de Phone Number EXTERNAL * (ABNORMAL) POC Glucose Monitoring Device (10/26/2024 6:17 PM EDT) POC Glucose Monitoring Device 104(H) 70 - 100 mg/dL 10/26/2024 6:18 PM EDT [facility] Blood 10/26/2024 6:17 PM EDT 10/26/2024 6:18 PM EDT Harvey Domínguez III, MD POINT OF CARE TEST ORDERABLES Final Result Performing Organization Address [facility] Co de Phone Number [facility] [address] [facility] * (ABNORMAL) POC Glucose Monitoring Device (10/26/2024 4:58 PM EDT) POC Glucose Monitoring Device 115(H) 70 - 100 mg/dL 10/26/2024 4:59 PM EDT [facility] Blood 10/26/2024 4:58 PM EDT 10/26/2024 4:58 PM EDT Harvey Domínguez III, MD POINT OF CARE TEST ORDERABLES Final Result Performing Organization Address [facility] Co de Phone Number [facility] [address] * (ABNORMAL) Calcium Free, Serum (10/26/2024 4:42 PM EDT) Free Calcium, Ser 5.67(H) 4.40 - 5.40 mg/dL 10/26/2024 4:55 PM EDT [facility] Comment:Free calcium levels vary inversely with pH by approximately 5% for each 0.1 unit of pH change. Assay results have been normalized to pH = 7.40. Serum 10/26/2024 4:42 PM EDT 10/26/2024 4:47 PM EDT Narrative [facility] - 10/26/2024 4:55 PM EDT This test has been developed and its performance characteristics determined by [facility] which is certified under the Clinical [...] lt Performing Organization Address [facility] Co de Phone Number [address] * Repeat Crossmatch (Recipient Sample) (10/26/2024 4:42 PM EDT) Repeat Cx - Recipient The request and specimen(s) for this test have been received and transported to the [facility] at [address] [place] [address] [facility] will report results directly to the client. 10/26/2024 4:49 PM EDT [facility] Whole Blood 10/26/2024 4:42 PM EDT 10/26/2024 4:49 PM EDT Narrative [facility] - 10/26/2024 4:49 PM EDT To be sent to [facility] for Donor UNOS#[id number] cross match with Blair Gilbert Sveta Judge MD LAB BLOOD ORDERABLES Final Resu lt Performing Organization Address [facility] Co de Phone Number [facility] [address] * (ABNORMAL) Lactic Acid (10/26/2024 4:42 PM EDT) Lactate 0.3(L) 0.5 - 2.2 mmol/L 10/26/2024 5:19 PM EDT [facility] Plasma 10/26/2024 4:42 PM EDT 10/26/2024 4:47 PM EDT Kemar Sahni MD LAB BLOOD ORDERABLES Final Result [facility] [address] [facility] * Magnesium (10/26/2024 4:42 PM EDT) Magnesium 2.0 1.5 - 2.5 mg/dL 10/26/2024 5:24 PM EDT [facility] Plasma 10/26/2024 4:42 PM EDT 10/26/2024 4:47 PM EDT Kemar Sahni MD LAB BLOOD ORDERABLES Final Result Performing Organization Address [facility] de Phone Number [facility] [address] [facility] * (ABNORMAL) Hepatic Function Panel (10/26/2024 4:42 PM EDT) Total Bilirubin 2.3(H) 0.0 - 1.5 mg/dL 10/26/2024 5:24 PM EDT [facility] Bilirubin, Direct 1.85(H) 0.00 - 0.40 mg/dL 10/26/2024 5:24 PM EDT [facility] AST 374(H) 13 - 39 U/L 10/26/2024 5:24 PM EDT [facility] ALT 458(H) 7 - 52 U/L 10/26/2024 5:24 PM EDT [facility] Alkaline Phosphatase 39 36 - 125 U/L 10/26/2024 5:24 PM EDT [facility] Total Protein 3.8(L) 6.4 - 8.9 g/dL 10/26/2024 5:24 PM EDT [facility] Albumin 3.0(L) 3.5 - 5.7 g/dL 10/26/2024 5:24 PM EDT [facility] Bilirubin, Indirect 0.45 0.00 - 1.10 mg/dL 10/26/2024 5:24 PM EDT [facility] Plasma 10/26/2024 4:42 PM EDT 10/26/2024 4:47 PM EDT Kemar Sahni MD LAB BLOOD ORDERABLES Final Result Performing Organization Address [facility] Co de Phone Number [facility] [address] [facility] * (ABNORMAL) Protime-INR (10/26/2024 4:42 PM EDT) Protime 20.3(H) 12.1 - 15.1 seconds 10/26/2024 5:12 PM EDT [facility] INR 1.7(H) 0.9 - 1.1 10/26/2024 5:12 PM EDT [facility] Comment: RECOMMENDED THERAPEUTIC RANGES USING INR : Stable oral anticoagulant therapy: 2.0 - 3.0 Mechanical prosthetic heart valve: 2.5 - 3.5 Recurrent acute myocardial infarction: 2.5 - 3.5 Plasma 10/26/2024 4:42 PM EDT 10/26/2024 4:47 PM EDT Kemar Sahni MD LAB BLOOD ORDERABLES Final Result Performing Organization Address [facility] Co de Phone Number [facility] [id number] [facility] * (ABNORMAL) CBC (10/26/2024 4:42 PM EDT) WBC 10.0 3.8 - 10.8 10E3/uL 10/26/2024 5:00 PM EDT [facility] RBC 3.44(L) 4.20 - 5.80 10E6/uL 10/26/2024 5:00 PM EDT [facility] Hemoglobin 10.5(L) 13.2 - 17.1 g/dL 10/26/2024 5:00 PM EDT [facility] Hematocrit 30.2(L) 38.5 - 50.0 % 10/26/2024 5:00 PM EDT [facility] MCV 87.7 80.0 - 100.0 fL 10/26/2024 5:00 PM EDT [facility] MCH 30.6 27.0 - 33.0 pg 10/26/2024 5:00 PM EDT [facility] MCHC 34.8 32.0 - 36.0 g/dL 10/26/2024 5:00 PM EDT [facility] RDW 20.1(H) 11.0 - 15.0 % 10/26/2024 5:00 PM EDT [facility] Platelets 48(L) 140 - 400 10E3/uL 10/26/2024 5:00 PM EDT [facility] Comment:Specimen checked for clots. None detected. MPV 7.9 7.5 - 11.5 fL 10/26/2024 5:00 PM EDT [facility] Whole Blood 10/26/2024 4:42 PM EDT 10/26/2024 4:47 PM EDT Kemar Sahni MD LAB BLOOD ORDERABLES Final Result [facility] [address] * (ABNORMAL) Renal Function Panel w/EGFR (10/26/2024 4:42 PM EDT) Sodium 142 133 - 146 mmol/L 10/26/2024 5:24 PM EDT [facility] Potassium 3.3(L) 3.5 - 5.3 mmol/L 10/26/2024 5:24 PM EDT [facility] Chloride 109 98 - 110 mmol/L 10/26/2024 5:24 PM EDT [facility] CO2 23 21 - 33 mmol/L 10/26/2024 5:24 PM EDT [facility] Anion Gap 10 3 - 16 mmol/L 10/26/2024 5:24 PM EDT [facility] BUN 63(H) 7 - 25 mg/dL 10/26/2024 5:24 PM EDT [facility] Creatinine 2.85(H) 0.60 - 1.30 mg/dL 10/26/2024 5:24 PM EDT [facility] Glucose 127(H) 70 - 100 mg/dL 10/26/2024 5:24 PM EDT [facility] Calcium 8.9 8.6 - 10.3 mg/dL 10/26/2024 5:24 PM EDT [facility] Phosphorus 4.4 2.1 - 4.7 mg/dL 10/26/2024 5:24 PM EDT [facility] Albumin 3.0(L) 3.5 - 5.7 g/dL 10/26/2024 5:24 PM EDT [facility] Osmolality, Calculated 314(H) 278 - 305 mOsm/kg 10/26/2024 5:24 PM EDT [facility] EGFR 28 10/26/2024 5:24 PM EDT [facility] Comment:As of 2021, [...] Sahni MD LAB BLOOD ORDERABLES Final Result [facility] [address] [place] [address], [facility] * (ABNORMAL) POC Glucose Monitoring Device (10/26/2024 3:54 PM EDT) POC Glucose Monitoring Device 126(H) 70 - 100 mg/dL 10/26/2024 3:55 PM EDT [facility] Blood 10/26/2024 3:54 PM EDT 10/26/2024 3:55 PM EDT Harvey Domínguez III, MD POINT OF CARE TEST ORDERABLES Final Result Performing Organization Address City/[facility] Co de Phone Number [facility] [address] [place] [address]. [address] * (ABNORMAL) POC Glucose Monitoring Device (10/26/2024 3:06 PM EDT) POC Glucose Monitoring Device 144(H) 70 - 100 mg/dL 10/26/2024 3:14 PM EDT [facility] Blood 10/26/2024 3:06 PM EDT 10/26/2024 3:13 PM EDT Harvey Domínguez III, MD POINT OF CARE TEST ORDERABLES Final Result Performing Organization Address [facility] de Phone Number [facility] [address] [place] [address] * (ABNORMAL) TEG-Bypass/ECMO/Liver HN (Factor function, Platelet/Fibrin Clot Strength w/Clot Breakdown, Heparinase In All Channels) (10/26/2024 3:03 PM EDT) Citrated Kaolin Reaction Time (TEGECMOLIVER) 8.2 4.6 - 9.1 minutes 10/26/2024 4:43 PM EDT [facility] Citrated Kaolin W/Heparinase Reaction Time (TEGECMOLIVER) 8.2 4.3 - 8.3 minutes 10/26/2024 4:43 PM EDT [facility] Citrated Kaolin Maximum Amplitude (TEGECMOLIVER) 41.7(L) 52.0 - 69.0 mm 10/26/2024 4:43 PM EDT [facility] Citrated Functional Fibrinogen W/Heparinase Maximum Amplitude(TEGEC MOLIVER) 11.4(L) 15.0 - 34.0 mm 10/26/2024 4:43 PM EDT [facility] Citrated Rapid Teg W/Heparinase Maximum Amplitude (TEGECMOLIVER) 38.6(L) 53.0 - 69.0 mm 10/26/2024 4:43 PM EDT [facility] Citrated Kaolin w/Heparinase Percent Lysis (TEGECMOLIVER) 0.0 0.0 - 3.2 % 10/26/2024 4:43 PM EDT [facility] Whole Blood (Citrate) 10/26/2024 3:03 PM EDT 10/26/2024 3:10 PM EDT Jani Mooney MD LAB BLOOD ORDERABLES Final Resul t Performing Organization Address [facility] de Phone Number [facility] [address] * ECG 12 lead (MUSE) (10/26/2024 2:19 PM EDT) 10/26/2024 2:19 PM EDT Narrative MUSE - 10/27/2024 10:09 AM EDT Ventricular Rate: 105 BPM Atrial Rate: 105 BPM P-R Interval: 128 ms QRS Duration: 94 ms QT: 474 ms QTc: 626 ms R [place]: -37 degrees T [place]: 35 degrees Diagnosis Line: Critical Test Result: Long QTc ^ SINUS TACHYCARDIA ^ LEFT AXIS DEVIATION, LEFT ANTERIOR HEMIBLOCK ^ PROLONGED QT ^ ABNORMAL ECG ^ ^ Confirmed by MD HA, [facility] ([id number]) on 10/27/2024 10:09:25 AM Quinten Best MD ECG ORDERABLES Final Result Performing Organization Address City/[facility]/ZIP Co de Phone Number MUSE * (ABNORMAL) POC Glucose Monitoring Device (10/26/2024 2:00 PM EDT) [facility] POC Glucose Monitoring Device 183(H) 70 - 100 mg/dL 10/26/2024 2:01 PM EDT [facility] Blood 10/26/2024 2:00 PM EDT 10/26/2024 2:01 PM EDT us Harvey Domínguez III, MD POINT OF CARE TEST ORDERABLES Final Result Performing Organization Address [facility] de Phone Number [facility] [address] * (ABNORMAL) POC Glucose Monitoring Device (10/26/2024 1:05 PM EDT) POC Glucose Monitoring Device 212(H) 70 - 100 mg/dL 10/26/2024 1:06 PM EDT [facility] Blood 10/26/2024 1:05 PM EDT 10/26/2024 1:06 PM EDT Harvey Domínguez III, MD POINT OF CARE TEST ORDERABLES Final Result Performing Organization Address [facility] de Phone Number [facility] [address] * Transfuse Cryoprecipitate Has consent been obtained? Yes; Transfusion Rate: Per dept routine (10/26/2024 12:25 PM EDT) us Shay Sifuentes MD NURSING TREATMENT ORDERABLES - BLOOD ADMIN Final Result Performing Organization Address [facility] de Phone Number EXTERNAL * Transfuse Cryoprecipitate Has consent been obtained? Yes; Transfusion Rate: Per dept routine, 1 Units (10/26/2024 12:25 PM EDT) Shay Sifuentes MD NURSING TREATMENT ORDERABLES - BLOOD ADMIN Final Result Performing Organization Address [facility] de Phone Number EXTERNAL * (ABNORMAL) POC Glucose Monitoring Device (10/26/2024 12:06 PM EDT) POC Glucose Monitoring Device 226(H) 70 - 100 mg/dL 10/26/2024 12:07 PM EDT [facility] Blood 10/26/2024 12:0 6 PM EDT 10/26/2024 12:07 PM EDT Harvey Domínguez III, MD POINT OF CARE TEST ORDERABLES Final Result Performing Organization Address [facility] Co de Phone Number [facility] [address] * Transfuse Cryoprecipitate Transfusion Rate: Per dept routine (10/26/2024 12:01 PM EDT) John Pina MD NURSING TREATMENT ORDERABLES - BLOOD ADMIN Final Result Performing Organization Address [facility] Co de Phone Number EXTERNAL * Transfuse Cryoprecipitate Transfusion Rate: Per dept routine, 1 Units (10/26/2024 12:01 PM EDT) John Pina MD NURSING TREATMENT ORDERABLES - BLOOD ADMIN Final Result Performing Organization Address [facility] de Phone Number EXTERNAL * Lactic Acid (10/26/2024 10:48 AM EDT) Lactate 1.2 0.5 - 2.2 mmol/L 10/26/2024 11:27 AM EDT [facility] Plasma 10/26/2024 10:4 8 AM EDT 10/26/2024 10:53 AM EDT Kemar Sahni MD LAB BLOOD ORDERABLES Final Result Performing Organization Address [facility] de Phone Number [facility] [address] * Magnesium (10/26/2024 10:48 AM EDT) Magnesium 2.0 1.5 - 2.5 mg/dL 10/26/2024 11:26 AM EDT [facility] Plasma 10/26/2024 10:4 8 AM EDT 10/26/2024 10:53 AM EDT Kemar Sahni MD LAB BLOOD ORDERABLES Final Result Performing Organization Address City/[facility] Co de Phone Number [facility] [address] * (ABNORMAL) Hepatic Function Panel (10/26/2024 10:48 AM EDT) Total Bilirubin 5.9(H) 0.0 - 1.5 mg/dL 10/26/2024 11:26 AM EDT [facility] Bilirubin, Direct 4.74(H) 0.00 - 0.40 mg/dL 10/26/2024 11:26 AM EDT [facility] AST 872(H) 13 - 39 U/L 10/26/2024 11:26 AM EDT [facility] ALT 736(H) 7 - 52 U/L 10/26/2024 11:26 AM EDT [facility] Alkaline Phosphatase 56 36 - 125 U/L 10/26/2024 11:26 AM EDT [facility] Total Protein 3.5(L) 6.4 - 8.9 g/dL 10/26/2024 11:26 AM EDT [facility] Albumin 2.5(L) 3.5 - 5.7 g/dL 10/26/2024 11:26 AM EDT [facility] Bilirubin, Indirect 1.16(H) 0.00 - 1.10 mg/dL 10/26/2024 11:26 AM EDT [facility] Plasma 10/26/2024 10:4 8 AM EDT 10/26/2024 10:53 AM EDT Kemar Sahni MD LAB BLOOD ORDERABLES Final Result [facility] [address] [place], [place] [id number] [place] [address] * (ABNORMAL) Protime-INR (10/26/2024 10:48 AM EDT) Protime 23.0(H) 12.1 - 15.1 seconds 10/26/2024 11:26 AM EDT [facility] INR 2.0(H) 0.9 - 1.1 10/26/2024 11:26 AM EDT [facility] Comment: RECOMMENDED THERAPEUTIC RANGES USING INR : Stable oral anticoagulant therapy: 2.0 - 3.0 Mechanical prosthetic heart valve: 2.5 - 3.5 Recurrent acute myocardial infarction: 2.5 - 3.5 Plasma 10/26/2024 10:4 8 AM EDT 10/26/2024 10:53 AM EDT Kemar Sahni MD LAB BLOOD ORDERABLES Final Result Performing Organization Address City/State/[facility] Co de Phone Number [facility] [address] * (ABNORMAL) CBC (10/26/2024 10:48 AM EDT) WBC 17.3(H) 3.8 - 10.8 10E3/uL 10/26/2024 11:14 AM EDT [facility] RBC 4.22 4.20 - 5.80 10E6/uL 10/26/2024 11:14 AM EDT [facility] Hemoglobin 12.8(L) 13.2 - 17.1 g/dL 10/26/2024 11:14 AM EDT [facility] Hematocrit 37.2(L) 38.5 - 50.0 % 10/26/2024 11:14 AM EDT [facility] MCV 88.3 80.0 - 100.0 fL 10/26/2024 11:14 AM EDT [facility] MCH 30.4 27.0 - 33.0 pg 10/26/2024 11:14 AM EDT [facility] MCHC 34.4 32.0 - 36.0 g/dL 10/26/2024 11:14 AM EDT [facility] RDW 20.8(H) 11.0 - 15.0 % 10/26/2024 11:14 AM EDT [facility] Platelets 109(L) 140 - 400 10E3/uL 10/26/2024 11:14 AM EDT [facility] MPV 7.5 7.5 - 11.5 fL 10/26/2024 11:14 AM EDT [facility] Whole Blood 10/26/2024 10:4 8 AM EDT 10/26/2024 10:53 AM EDT Kemar Sahni MD LAB BLOOD ORDERABLES Final Result [facility] [address] [place] [address], [facility] * (ABNORMAL) Blood gas, arterial (10/26/2024 10:48 AM EDT) O2 Sat, Arterial 97 10/26/2024 10:54 AM EDT [facility] FIO2 35% 10/26/2024 10:54 AM EDT [facility] pH, Arterial 7.37 7.35 - 7.45 10/26/2024 10:54 AM EDT [facility] pCO2, Arterial 36 35 - 45 mm Hg 10/26/2024 10:54 AM EDT [facility] pO2, Arterial 91 80 - 100 mm Hg 10/26/2024 10:54 AM EDT [facility] HCO3, Arterial 22 22 - 26 mmol/L 10/26/2024 10:54 AM EDT [facility] CO2 Content,Arteri al 22(L) 23 - 27 mmol/L 10/26/2024 10:54 AM EDT [facility] Base Excess, Arterial -3.9(L) -2.0 - 3.0 mmol/L 10/26/2024 10:54 AM EDT [facility] %HBO2, Arterial 94.8(L) 95.0 - 98.0 % 10/26/2024 10:54 AM EDT [facility] Carboxyhemoglo bin, Arterial 1.9 % 10/26/2024 10:54 AM EDT [facility] Comment: CARBOXYHEMOGLOBIN (CO) REFERENCE RANGES: Non-Smokers: <2 % Smokers: <8 % TOXIC: >20 % Methemoglobin, Arterial 0.7 0.0 - 1.5 % 10/26/2024 10:54 AM EDT [facility] Reduced hemoglobin, Arterial 2.5 0.0 - 5.0 % 10/26/2024 10:54 AM EDT [facility] Blood, Arterial 10/26/2024 1 0:48 AM EDT 10/26/2024 10:52 AM EDT Shay Sifuentes MD LAB BLOOD ORDERABLES Final Resu lt [facility] [address] [place] [address], [facility] * (ABNORMAL) Renal Function Panel w/EGFR (10/26/2024 10:48 AM EDT) Sodium 139 133 - 146 mmol/L 10/26/2024 11:26 AM EDT [facility] Potassium 2.9(LL) 3.5 - 5.3 mmol/L 10/26/2024 11:26 AM EDT [facility] Comment:K CRITICAL VALUE WAS PREVIOUSLY CALLED Chloride 107 98 - 110 mmol/L 10/26/2024 11:26 AM EDT [facility] CO2 22 21 - 33 mmol/L 10/26/2024 11:26 AM EDT [facility] Anion Gap 10 3 - 16 mmol/L 10/26/2024 11:26 AM EDT [facility] BUN 61(H) 7 - 25 mg/dL 10/26/2024 11:26 AM EDT [facility] Creatinine 2.78(H) 0.60 - 1.30 mg/dL 10/26/2024 11:26 AM EDT [facility] Glucose 253(H) 70 - 100 mg/dL 10/26/2024 11:26 AM EDT [facility] Calcium 8.8 8.6 - 10.3 mg/dL 10/26/2024 11:26 AM EDT [facility] Phosphorus 4.1 2.1 - 4.7 mg/dL 10/26/2024 11:26 AM EDT [facility] Albumin 2.5(L) 3.5 - 5.7 g/dL 10/26/2024 11:26 AM EDT [facility] Osmolality, Calculated 314(H) 278 - 305 mOsm/kg 10/26/2024 11:26 AM EDT [facility] EGFR 28 10/26/2024 11:26 AM EDT [facility] Comment:As of 2021, [...] BLOOD ORDERABLES Final Result Performing Organization Address City/[facility]/ZIP Co de Phone Number [facility] [address] * (ABNORMAL) POC Glucose Monitoring Device (10/26/2024 10:47 AM EDT) POC Glucose Monitoring Device 234(H) 70 - 100 mg/dL 10/26/2024 10:48 AM EDT [facility] Blood 10/26/2024 10:4 7 AM EDT 10/26/2024 10:48 AM EDT Harvey Domínguez III, MD POINT OF CARE TEST ORDERABLES Final Result Performing Organization Address City/[facility]/ZIP Co de Phone Number [facility] [address] [facility] * CARISA Rhythm Strip - Scan (10/26/2024 10:45 AM EDT) Scanning Uchhim SCAN DOCS - NO RESULTS Final Res ult * (ABNORMAL) POC Glucose Monitoring Device (10/26/2024 10:08 AM EDT) POC Glucose Monitoring Device 235(H) 70 - 100 mg/dL 10/26/2024 10:09 AM EDT [facility] Blood 10/26/2024 10:0 8 AM EDT 10/26/2024 10:09 AM EDT Harvey Domínguez III, MD POINT OF CARE TEST ORDERABLES Final Result Performing Organization Address [facility] Co de Phone Number [facility] [address] * (ABNORMAL) POC Glucose Monitoring Device (10/26/2024 8:57 AM EDT) [facility] POC Glucose Monitoring Device 232(H) 70 - 100 mg/dL 10/26/2024 8:59 AM EDT [facility] Blood 10/26/2024 8:57 AM EDT 10/26/2024 8:58 AM EDT Harvey Domínguez III, MD POINT OF CARE TEST ORDERABLES Final Result Performing Organization Address [facility] de Phone Number [facility] [address] * ECG 12 lead (MUSE) (10/26/2024 8:16 AM EDT) 10/26/2024 8:16 AM EDT Narrative MUSE - 10/27/2024 10:09 AM EDT Ventricular Rate: 112 BPM QRS Duration: 96 ms QT: 452 ms QTc: 616 ms R [place]: -41 degrees T [place]: 40 degrees Diagnosis Line: Critical Test Result: Long QTc ^ SINUS TACHYCARDIA OCCASIONAL PREMATURE VENTRICULAR COMPLEXES ^ LEFT AXIS DEVIATION, LEFT ANTERIOR HEMIBLOCK ^ PROLONGED QT ^ ABNORMAL ECG ^ ^ Confirmed by MD HA, ERICK ([id number]) on 10/27/2024 10:09:18 AM Shay Sifuentes MD ECG ORDERABLES Final Result Performing Organization Address [facility] Co de Phone Number MUSE * X-ray [...] Bones and soft tissues: Unchanged. Procedure Note Doron Castro MD - 10/26/2024 EXAM: XR PORTABLE [...] - 100 mg/dL 10/26/2024 8:01 AM EDT [facility] Blood 10/26/2024 7:59 AM EDT 10/26/2024 8:00 AM EDT Harvey Domínguez III, MD POINT OF CARE TEST ORDERABLES Final Result Performing Organization Address City/[facility]/ZIP Co de Phone Number [facility] [address] [facility]. [address] * (ABNORMAL) TEG-Bypass/ECMO/Liver HN (Factor function, Platelet/Fibrin Clot Strength w/Clot Breakdown, Heparinase In All Channels) (10/26/2024 7:59 AM EDT) [facility] Citrated Kaolin Reaction Time (TEGECMOLIVER) 8.2 4.6 - 9.1 minutes 10/26/2024 10:36 AM EDT [facility] Citrated Kaolin W/Heparinase Reaction Time (TEGECMOLIVER) 8.1 4.3 - 8.3 minutes 10/26/2024 10:36 AM EDT [facility] Citrated Kaolin Maximum Amplitude (TEGECMOLIVER) 46.8(L) 52.0 - 69.0 mm 10/26/2024 10:36 AM EDT [facility] Citrated Functional Fibrinogen W/Heparinase Maximum Amplitude(TEGEC MOLIVER) 10.5(L) 15.0 - 34.0 mm 10/26/2024 10:36 AM EDT [facility] Citrated Rapid Teg W/Heparinase Maximum Amplitude (TEGECMOLIVER) 45.5(L) 53.0 - 69.0 mm 10/26/2024 10:36 AM EDT [facility] Citrated Kaolin w/Heparinase Percent Lysis (TEGECMOLIVER) 0.0 0.0 - 3.2 % 10/26/2024 10:36 AM EDT [facility] Whole Blood (Citrate) 10/26/2024 7:59 AM EDT 10/26/2024 8:05 AM EDT us Shay Sifuentes MD LAB BLOOD ORDERABLES Final Resu lt [facility] [address] * (ABNORMAL) POC Glucose Monitoring Device (10/26/2024 6:12 AM EDT) [facility] POC Glucose Monitoring Device 196(H) 70 - 100 mg/dL 10/26/2024 6:13 AM EDT [facility] Blood 10/26/2024 6:12 AM EDT 10/26/2024 6:13 AM EDT Harvey Domínguez III, MD POINT OF CARE TEST ORDERABLES Final Result Performing Organization Address City/[facility]/ZIP Co de Phone Number [facility] [address] [place] [address]. [address] * Lactic Acid (10/26/2024 6:10 AM EDT) [facility] Lactate 1.2 0.5 - 2.2 mmol/L 10/26/2024 6:39 AM EDT [facility] Plasma 10/26/2024 6:10 AM EDT 10/26/2024 6:19 AM EDT Sveta Judge MD LAB BLOOD ORDERABLES Final Resu lt Performing Organization Address [facility] Co de Phone Number [facility] [address] [place] [address]. [address] * (ABNORMAL) Fibrinogen (10/26/2024 6:10 AM EDT) [facility] Fibrinogen 160(L) 218 - 406 mg/dL 10/26/2024 6:41 AM EDT [facility] Plasma 10/26/2024 6:10 AM EDT 10/26/2024 6:26 AM EDT Sveta Judge MD LAB BLOOD ORDERABLES Final Resu lt Performing Organization Address [facility] Co de Phone Number [facility] [address] [place] [address]. [address] * (ABNORMAL) Protime-INR (10/26/2024 6:10 AM EDT) Protime 25.0(H) 12.1 - 15.1 seconds 10/26/2024 6:41 AM EDT [facility] INR 2.2(H) 0.9 - 1.1 10/26/2024 6:41 AM EDT [facility] Comment: RECOMMENDED THERAPEUTIC RANGES USING INR : Stable oral anticoagulant therapy: 2.0 - 3.0 Mechanical prosthetic heart valve: 2.5 - 3.5 Recurrent acute myocardial infarction: 2.5 - 3.5 Plasma 10/26/2024 6:10 AM EDT 10/26/2024 6:26 AM EDT us Sveta Judge MD LAB BLOOD ORDERABLES Final Resu lt [facility] [address] [place] [address], [facility] * (ABNORMAL) Blood gas, arterial (10/26/2024 6:10 AM EDT) Pathologist [facility] O2 Sat, Arterial 98 10/26/2024 6:23 AM EDT [facility] FIO2 60 10/26/2024 6:23 AM EDT [facility] pH, Arterial 7.27(L) 7.35 - 7.45 10/26/2024 6:23 AM EDT [facility] pCO2, Arterial 47(H) 35 - 45 mm Hg 10/26/2024 6:23 AM EDT [facility] pO2, Arterial 127(H) 80 - 100 mm Hg 10/26/2024 6:23 AM EDT [facility] HCO3, Arterial 21(L) 22 - 26 mmol/L 10/26/2024 6:23 AM EDT [facility] CO2 Content,Arteri al 23 23 - 27 mmol/L 10/26/2024 6:23 AM EDT [facility] Base Excess, Arterial -5.4(L) -2.0 - 3.0 mmol/L 10/26/2024 6:23 AM EDT [facility] %HBO2, Arterial 94.6(L) 95.0 - 98.0 % 10/26/2024 6:23 AM EDT [facility] Carboxyhemoglo bin, Arterial 2.0 % 10/26/2024 6:23 AM EDT [facility] Comment: CARBOXYHEMOGLOBIN (CO) REFERENCE RANGES: Non-Smokers: <2 % Smokers: <8 % TOXIC: >20 % Methemoglobin, Arterial 1.6(H) 0.0 - 1.5 % 10/26/2024 6:23 AM EDT [facility] Reduced hemoglobin, Arterial 1.8 0.0 - 5.0 % 10/26/2024 6:23 AM EDT [facility] Blood, Arterial 10/26/2024 6 :10 AM EDT 10/26/2024 6:20 AM EDT us Sveta Judge MD LAB BLOOD ORDERABLES Final Resu lt Performing Organization Address City/[facility]/ZIP Co de Phone Number [facility] [address] [facility]. [address] * Magnesium (10/26/2024 6:10 AM EDT) Magnesium 1.5 1.5 - 2.5 mg/dL 10/26/2024 7:09 AM EDT [facility] Plasma 10/26/2024 6:10 AM EDT 10/26/2024 6:23 AM EDT Sveta Judge MD LAB BLOOD ORDERABLES Final Resu lt Performing Organization Address City/[facility] Co de Phone Number [facility] [address] [facility] * (ABNORMAL) Hepatic Function Panel (10/26/2024 6:10 AM EDT) Total Bilirubin 6.2(H) 0.0 - 1.5 mg/dL 10/26/2024 7:11 AM EDT [facility] Bilirubin, Direct 5.26(H) 0.00 - 0.40 mg/dL 10/26/2024 7:11 AM EDT [facility] AST 1,071(H) 13 - 39 U/L 10/26/2024 7:11 AM EDT [facility] ALT 805(H) 7 - 52 U/L 10/26/2024 7:11 AM EDT [facility] Alkaline Phosphatase 55 36 - 125 U/L 10/26/2024 7:11 AM EDT [facility] Total Protein <3.0(L) 6.4 - 8.9 g/dL 10/26/2024 7:11 AM EDT [facility] Albumin 1.9(L) 3.5 - 5.7 g/dL 10/26/2024 7:11 AM EDT [facility] Bilirubin, Indirect 0.94 0.00 - 1.10 mg/dL 10/26/2024 7:11 AM EDT [facility] Plasma 10/26/2024 6:10 AM EDT 10/26/2024 6:23 AM EDT us Sveta Judge MD LAB BLOOD ORDERABLES Final Resu lt [facility] [id number] [id number], [facility] * (ABNORMAL) Renal Function Panel w/EGFR (10/26/2024 6:10 AM EDT) Sodium 141 133 - 146 mmol/L 10/26/2024 7:09 AM EDT [facility] Potassium 2.8(LL) 3.5 - 5.3 mmol/L 10/26/2024 7:09 AM EDT [facility] Comment:Critical value previ ously called. Chloride 106 98 - 110 mmol/L 10/26/2024 7:09 AM EDT [facility] CO2 25 21 - 33 mmol/L 10/26/2024 7:09 AM EDT [facility] Anion Gap 10 3 - 16 mmol/L 10/26/2024 7:09 AM EDT [facility] BUN 57(H) 7 - 25 mg/dL 10/26/2024 7:09 AM EDT [facility] Creatinine 2.70(H) 0.60 - 1.30 mg/dL 10/26/2024 7:09 AM EDT [facility] Glucose 210(H) 70 - 100 mg/dL 10/26/2024 7:09 AM EDT [facility] Calcium 8.7 8.6 - 10.3 mg/dL 10/26/2024 7:09 AM EDT [facility] Phosphorus 5.4(H) 2.1 - 4.7 mg/dL 10/26/2024 7:09 AM EDT [facility] Albumin 1.9(L) 3.5 - 5.7 g/dL 10/26/2024 7:11 AM EDT [facility] Osmolality, Calculated 314(H) 278 - 305 mOsm/kg 10/26/2024 7:09 AM EDT [facility] EGFR 29 10/26/2024 7:09 AM EDT [facility] Comment:As of 2021, [...] MD LAB BLOOD ORDERABLES Final Resu lt [facility] [address] * (ABNORMAL) CBC (10/26/2024 6:10 AM EDT) WBC 14.8(H) 3.8 - 10.8 10E3/uL 10/26/2024 6:46 AM EDT [facility] RBC 4.04(L) 4.20 - 5.80 10E6/uL 10/26/2024 6:46 AM EDT [facility] Hemoglobin 12.7(L) 13.2 - 17.1 g/dL 10/26/2024 6:46 AM EDT [facility] Hematocrit 35.9(L) 38.5 - 50.0 % 10/26/2024 6:46 AM EDT [facility] MCV 89.0 80.0 - 100.0 fL 10/26/2024 6:46 AM EDT [facility] MCH 31.3 27.0 - 33.0 pg 10/26/2024 6:46 AM EDT [facility] MCHC 35.2 32.0 - 36.0 g/dL 10/26/2024 6:46 AM EDT [facility] RDW 19.7(H) 11.0 - 15.0 % 10/26/2024 6:46 AM EDT [facility] Platelets 107(L) 140 - 400 10E3/uL 10/26/2024 6:46 AM EDT [facility] MPV 7.4(L) 7.5 - 11.5 fL 10/26/2024 6:46 AM EDT [facility] Whole Blood 10/26/2024 6:10 AM EDT 10/26/2024 6:26 AM EDT Sveta Judge MD LAB BLOOD ORDERABLES Final Resu lt [facility] [address] [place] [address], [facility] * (ABNORMAL) POC INR (10/26/2024 5:16 AM EDT) Pathologist [facility] Prothrombin Time INR, POC 2.4(H) 0.8 - 1.4 10/27/2024 6:51 AM EDT [facility] Comment: Test results may vary using [...] TEST ORDERABLES Final Result Performing Organization Address City/[facility] Co de Phone Number [facility] [address] [facility]. [address] * POC Sample Type (10/26/2024 5:14 AM EDT) POC Sample Type Arterial 10/26/2024 5:31 AM EDT [facility] Blood, Arterial 10/26/2024 5 :14 AM EDT 10/26/2024 5:31 AM EDT us Harvey Domínguez III, MD POINT OF CARE TEST ORDERABLES Final Result Performing Organization Address [facility] Co de Phone Number [facility] [address] [facility]. [address] * POC Anion Gap (10/26/2024 5:14 AM EDT) POC Anion Gap, Arterial 12 3 - 16 mmol/L 10/26/2024 5:31 AM EDT [facility] Blood, Arterial 10/26/2024 5 :14 AM EDT 10/26/2024 5:31 AM EDT us Harvey Domínguez III, MD POINT OF CARE TEST ORDERABLES Final Result Performing Organization Address City/[facility] Co de Phone Number [facility] [address] [place] [address]. [address] * POC Chloride (10/26/2024 5:14 AM EDT) POC Chloride 104 98 - 110 mmol/L 10/26/2024 5:31 AM EDT [facility] Blood, Arterial 10/26/2024 5 :14 AM EDT 10/26/2024 5:31 AM EDT us Harvey Domínguez III, MD POINT OF CARE TEST ORDERABLES Final Result Performing Organization Address City/[facility] Co de Phone Number [facility] [address] [facility]. [address] * (ABNORMAL) POC Hemoglobin (10/26/2024 5:14 AM EDT) POC Hemoglobin 9.5(L) 14.0 - 18.0 g/dL 10/26/2024 5:31 AM EDT [facility] Blood, Arterial 10/26/2024 5 :14 AM EDT 10/26/2024 5:31 AM EDT us Harvey Domínguez III, MD POINT OF CARE TEST ORDERABLES Final Result Performing Organization Address [facility] Co de Phone Number [facility] [address] [facility]. [address] * (ABNORMAL) POC hematocrit (10/26/2024 5:14 AM EDT) POC Hematocrit 28.0(L) 40 - 52 % 10/26/2024 5:31 AM EDT [facility] Blood, Arterial 10/26/2024 5 :14 AM EDT 10/26/2024 5:31 AM EDT us Harvey Domínguez III, MD POINT OF CARE TEST ORDERABLES Final Result Performing Organization Address [facility] Co de Phone Number [facility] [address] [facility]. [address] * POC Lactate (10/26/2024 5:14 AM EDT) POC Lactate 1.76 0.50 - 2.20 mmol/L 10/26/2024 5:31 AM EDT [facility] Blood, Arterial 10/26/2024 5 :14 AM EDT 10/26/2024 5:31 AM EDT us Harvey Domínguez III, MD POINT OF CARE TEST ORDERABLES Final Result [facility] [address] * (ABNORMAL) POC Glucose (10/26/2024 5:14 AM EDT) POC Glucose, Arterial 183(H) 70 - 100 mg/dL 10/26/2024 5:31 AM EDT [facility] Blood, Arterial 10/26/2024 5 :14 AM EDT 10/26/2024 5:31 AM EDT us Harvey Domínguez III, MD POINT OF CARE TEST ORDERABLES Final Result Performing Organization Address City/[facility]/ZIP Co de Phone Number [facility] [address] * (ABNORMAL) POC Ionized Calcium (10/26/2024 5:14 AM EDT) POC Ionized Calcium 5.50(H) 4.50 - 5.30 mg/dL 10/26/2024 5:31 AM EDT [facility] Blood, Arterial 10/26/2024 5 :14 AM EDT 10/26/2024 5:31 AM EDT us Harvey Domínguez III, MD POINT OF CARE TEST ORDERABLES Final Result Performing Organization Address [facility] Co de Phone Number [facility] [address] [facility]. [address] * (ABNORMAL) POC Potassium (10/26/2024 5:14 AM EDT) POC Potassium 2.8(LL) 3.5 - 5.3 mmol/L 10/26/2024 5:31 AM EDT [facility] Blood, Arterial 10/26/2024 5 :14 AM EDT 10/26/2024 5:31 AM EDT us Harvey Domínguez III, MD POINT OF CARE TEST ORDERABLES Final Result [facility] [address] * POC Sodium (10/26/2024 5:14 AM EDT) POC Sodium 138 136 - 146 mmol/L 10/26/2024 5:31 AM EDT [facility] Blood, Arterial 10/26/2024 5 :14 AM EDT 10/26/2024 5:31 AM EDT Harvey Domínguez III, MD POINT OF CARE TEST ORDERABLES Final Result [facility] [address] * POC TCO2 (10/26/2024 5:14 AM EDT) POC TCO2, Arterial 23 23 - 27 mmol/L 10/26/2024 5:31 AM EDT [facility] Blood, Arterial 10/26/2024 5 :14 AM EDT 10/26/2024 5:31 AM EDT us Harvey Domínguez III, MD POINT OF CARE TEST ORDERABLES Final Result Performing Organization Address [facility]/State/ZIP Co de Phone Number [facility] [address] * (ABNORMAL) POC O2 SAT (10/26/2024 5:14 AM EDT) POC O2 Saturation, Arterial 99(H) 95 - 98 % 10/26/2024 5:31 AM EDT [facility] Blood, Arterial 10/26/2024 5 :14 AM EDT 10/26/2024 5:31 AM EDT us Harvey Domínguez III, MD POINT OF CARE TEST ORDERABLES Final Result [facility] [address] * (ABNORMAL) POC Base Excess (10/26/2024 5:14 AM EDT) POC Base Excess, Arterial -5(L) -2 - 3 mmol/L 10/26/2024 5:31 AM EDT [facility] Blood, Arterial 10/26/2024 5 :14 AM EDT 10/26/2024 5:31 AM EDT Harvey Domínguez III, MD POINT OF CARE TEST ORDERABLES Final Result [facility] [address] * POC HCO3 (10/26/2024 5:14 AM EDT) POC HCO3, Arterial 22 22 - 26 mmol/L 10/26/2024 5:31 AM EDT [facility] Blood, Arterial 10/26/2024 5 :14 AM EDT 10/26/2024 5:31 AM EDT Harvey Domínguez III, MD POINT OF CARE TEST ORDERABLES Final Result Performing Organization Address [facility] Co de Phone Number [facility] [address] [facility]. [address] * (ABNORMAL) POC PO2 (10/26/2024 5:14 AM EDT) POC pO2, Arterial 133(H) 80 - 100 mm Hg 10/26/2024 5:31 AM EDT [facility] Blood, Arterial 10/26/2024 5 :14 AM EDT 10/26/2024 5:31 AM EDT Harvey Domínguez III, MD POINT OF CARE TEST ORDERABLES Final Result Performing Organization Address City/[facility]/ZIP Co de Phone Number [facility] [address] * POC PCO2 (10/26/2024 5:14 AM EDT) POC pCO2, Arterial 45 35 - 45 mm Hg 10/26/2024 5:31 AM EDT [facility] Blood, Arterial 10/26/2024 5 :14 AM EDT 10/26/2024 5:31 AM EDT Harvey Domínguez III, MD POINT OF CARE TEST ORDERABLES Final Result Performing Organization Address [facility] Co de Phone Number [facility] [address] [facility] * (ABNORMAL) POC pH (10/26/2024 5:14 AM EDT) Pathologist [facility] POC pH, Arterial 7.29(L) 7.35 - 7.45 10/26/2024 5:31 AM EDT [facility] Blood, Arterial 10/26/2024 5 :14 AM EDT 10/26/2024 5:31 AM EDT Harvey Domínguez III, MD POINT OF CARE TEST ORDERABLES Final Result Performing Organization Address [facility] de Phone Number [facility] [address] [facility] * Transfuse Cryoprecipitate (10/26/2024 4:37 AM EDT) Result [facility] Eber Quinones MD NURSING TREATMENT ORDERA BLES - BLOOD ADMIN Final Result * Transfuse Cryoprecipitate (10/26/2024 4:37 AM EDT) Eber Quinones MD NURSING TREATMENT ORDERA BLES - BLOOD ADMIN Final Result * (ABNORMAL) POC INR (10/26/2024 4:27 AM EDT) Prothrombin Time INR, POC 2.3(H) 0.8 - 1.4 10/27/2024 6:51 AM EDT [facility] Comment: Test results may vary using [...] POINT OF CARE TEST ORDERABLES Final Result [facility] 318[facility] * POC Sample Type (10/26/2024 4:24 AM EDT) POC Sample Type Arterial 10/26/2024 5:09 AM EDT [facility] Blood, Arterial 10/26/2024 4 :24 AM EDT 10/26/2024 5:09 AM EDT Harvey Domínguez III, MD POINT OF CARE TEST ORDERABLES Final Result Performing Organization Address [facility] Co de Phone Number [facility] [address] [facility]. [address] * POC Anion Gap (10/26/2024 4:24 AM EDT) POC Anion Gap, Arterial 14 3 - 16 mmol/L 10/26/2024 5:09 AM EDT [facility] Blood, Arterial 10/26/2024 4 :24 AM EDT 10/26/2024 5:09 AM EDT us Harvey Domínguez III, MD POINT OF CARE TEST ORDERABLES Final Result Performing Organization Address City/[facility] Co de Phone Number [facility] [address] [place] [address]. [address] * POC Chloride (10/26/2024 4:24 AM EDT) POC Chloride 103 98 - 110 mmol/L 10/26/2024 5:09 AM EDT [facility] Blood, Arterial 10/26/2024 4 :24 AM EDT 10/26/2024 5:09 AM EDT us Harvey Domínguez III, MD POINT OF CARE TEST ORDERABLES Final Result Performing Organization Address City/[facility]/ZIP Co de Phone Number [facility] [address] [facility]. [address] * (ABNORMAL) POC Hemoglobin (10/26/2024 4:24 AM EDT) POC Hemoglobin 10.3(L) 14.0 - 18.0 g/dL 10/26/2024 5:09 AM EDT [facility] Blood, Arterial 10/26/2024 4 :24 AM EDT 10/26/2024 5:09 AM EDT us Harvey Domínguez III, MD POINT OF CARE TEST ORDERABLES Final Result Performing Organization Address [facility] Co de Phone Number [facility] [address] [facility]. [address] * (ABNORMAL) POC hematocrit (10/26/2024 4:24 AM EDT) POC Hematocrit 30.0(L) 40 - 52 % 10/26/2024 5:09 AM EDT [facility] Blood, Arterial 10/26/2024 4 :24 AM EDT 10/26/2024 5:09 AM EDT us Harvey Domínguez III, MD POINT OF CARE TEST ORDERABLES Final Result Performing Organization Address City/[facility] Co de Phone Number [facility] [address] [facility]. [address] * (ABNORMAL) POC Lactate (10/26/2024 4:24 AM EDT) POC Lactate 2.43(H) 0.50 - 2.20 mmol/L 10/26/2024 5:09 AM EDT [facility] Blood, Arterial 10/26/2024 4 :24 AM EDT 10/26/2024 5:09 AM EDT us Harvey Domínguez III, MD POINT OF CARE TEST ORDERABLES Final Result Performing Organization Address City/[facility]/ZIP Co de Phone Number [facility] [address] [facility]. [address] * (ABNORMAL) POC Glucose (10/26/2024 4:24 AM EDT) POC Glucose, Arterial 185(H) 70 - 100 mg/dL 10/26/2024 5:09 AM EDT [facility] Blood, Arterial 10/26/2024 4 :24 AM EDT 10/26/2024 5:09 AM EDT us Harvey Domínguez III, MD POINT OF CARE TEST ORDERABLES Final Result Performing Organization Address [facility] Co de Phone Number [facility] [address] [facility]. [address] * POC Ionized Calcium (10/26/2024 4:24 AM EDT) POC Ionized Calcium 5.20 4.50 - 5.30 mg/dL 10/26/2024 5:09 AM EDT [facility] Blood, Arterial 10/26/2024 4 :24 AM EDT 10/26/2024 5:09 AM EDT us Harvey Domínguez III, MD POINT OF CARE TEST ORDERABLES Final Result Performing Organization Address City/[facility] Co de Phone Number [facility] [address] [facility]. [address] * (ABNORMAL) POC Potassium (10/26/2024 4:24 AM EDT) POC Potassium 2.8(LL) 3.5 - 5.3 mmol/L 10/26/2024 5:09 AM EDT [facility] Blood, Arterial 10/26/2024 4 :24 AM EDT 10/26/2024 5:09 AM EDT us Harvey Domínguez III, MD POINT OF CARE TEST ORDERABLES Final Result Performing Organization Address City/[facility]/ZIP Co de Phone Number [facility] [address] [facility]. [address] * POC Sodium (10/26/2024 4:24 AM EDT) POC Sodium 139 136 - 146 mmol/L 10/26/2024 5:09 AM EDT [facility] Blood, Arterial 10/26/2024 4 :24 AM EDT 10/26/2024 5:09 AM EDT us Harvey Domínguez III, MD POINT OF CARE TEST ORDERABLES Final Result Performing Organization Address [facility] Co de Phone Number [facility] [address] * POC TCO2 (10/26/2024 4:24 AM EDT) POC TCO2, Arterial 23 23 - 27 mmol/L 10/26/2024 5:09 AM EDT [facility] Blood, Arterial 10/26/2024 4 :24 AM EDT 10/26/2024 5:09 AM EDT Harvey Domínguez III, MD POINT OF CARE TEST ORDERABLES Final Result [facility] [address] [facility]. [address] * POC O2 SAT (10/26/2024 4:24 AM EDT) POC O2 Saturation, Arterial 96 95 - 98 % 10/26/2024 5:09 AM EDT [facility] Blood, Arterial 10/26/2024 4 :24 AM EDT 10/26/2024 5:09 AM EDT us Harvey Domínguez III, MD POINT OF CARE TEST ORDERABLES Final Result Performing Organization Address [facility] Co de Phone Number [facility] [address] * (ABNORMAL) POC Base Excess (10/26/2024 4:24 AM EDT) POC Base Excess, Arterial -5(L) -2 - 3 mmol/L 10/26/2024 5:09 AM EDT [facility] Blood, Arterial 10/26/2024 4 :24 AM EDT 10/26/2024 5:09 AM EDT us Harvey Domínguez III, MD POINT OF CARE TEST ORDERABLES Final Result Performing Organization Address [facility] Co de Phone Number [facility] [address]3][address] [facility]. [address] * POC HCO3 (10/26/2024 4:24 AM EDT) POC HCO3, Arterial 22 22 - 26 mmol/L 10/26/2024 5:09 AM EDT [facility] Blood, Arterial 10/26/2024 4 :24 AM EDT 10/26/2024 5:09 AM EDT us Harvey Domínguez III, MD POINT OF CARE TEST ORDERABLES Final Result Performing Organization Address City/[facility] Co de Phone Number [facility] [address] [facility]. [address] * POC PO2 (10/26/2024 4:24 AM EDT) POC pO2, Arterial 93 80 - 100 mm Hg 10/26/2024 5:09 AM EDT [facility] Blood, Arterial 10/26/2024 4 :24 AM EDT 10/26/2024 5:09 AM EDT Harvey Domínguez III, MD POINT OF CARE TEST ORDERABLES Final Result Performing Organization Address [facility] Co de Phone Number [facility] [address] [place] [address]. [address] * POC PCO2 (10/26/2024 4:24 AM EDT) POC pCO2, Arterial 44 35 - 45 mm Hg 10/26/2024 5:09 AM EDT [facility] Blood, Arterial 10/26/2024 4 :24 AM EDT 10/26/2024 5:09 AM EDT Harvey Domínguez III, MD POINT OF CARE TEST ORDERABLES Final Result Performing Organization Address [facility] Co de Phone Number [facility] [address] [place] [address]. [address] * (ABNORMAL) POC pH (10/26/2024 4:24 AM EDT) POC pH, Arterial 7.30(L) 7.35 - 7.45 10/26/2024 5:09 AM EDT [facility] Blood, Arterial 10/26/2024 4 :24 AM EDT 10/26/2024 5:09 AM EDT Harvey Domínguez III, MD POINT OF CARE TEST ORDERABLES Final Result Performing Organization Address [facility] Co de Phone Number [address] * Transfuse Platelets (10/26/2024 4:14 AM EDT) Ben Blake MD NURSING TREATMENT ORDERABLES - BLOOD ADMIN Final Result * Transfuse Fresh Frozen Plasma (10/26/2024 3:47 AM EDT) Ben Blake MD NURSING TREATMENT ORDERABLES - BLOOD ADMIN Final Result * (ABNORMAL) POC INR (10/26/2024 3:34 AM EDT) Prothrombin Time INR, POC 2.8(H) 0.8 - 1.4 10/27/2024 6:51 AM EDT [facility] Comment: Test results may vary using [...] TEST ORDERABLES Final Result Performing Organization Address City/[facility] Co de Phone Number [facility] [address] [facility]. [address] * POC Sample Type (10/26/2024 3:31 AM EDT) Pathologist [facility] POC Sample Type Arterial 10/26/2024 4:11 AM EDT [facility] Blood, Arterial 10/26/2024 3 :31 AM EDT 10/26/2024 4:11 AM EDT us Harvey Domínguez III, MD POINT OF CARE TEST ORDERABLES Final Result Performing Organization Address [facility] Co de Phone Number [facility] [address] * POC Anion Gap (10/26/2024 3:31 AM EDT) POC Anion Gap, Arterial 15 3 - 16 mmol/L 10/26/2024 4:11 AM EDT [facility] Blood, Arterial 10/26/2024 3 :31 AM EDT 10/26/2024 4:11 AM EDT us Harvey Domínguez III, MD POINT OF CARE TEST ORDERABLES Final Result Performing Organization Address City/[facility]/ZIP Co de Phone Number [facility] [address] * POC Chloride (10/26/2024 3:31 AM EDT) POC Chloride 105 98 - 110 mmol/L 10/26/2024 4:11 AM EDT [facility] Blood, Arterial 10/26/2024 3 :31 AM EDT 10/26/2024 4:11 AM EDT us Harvey Domínguez III, MD POINT OF CARE TEST ORDERABLES Final Result [facility] [address] * (ABNORMAL) POC Hemoglobin (10/26/2024 3:31 AM EDT) Pathologist [facility] POC Hemoglobin 9.7(L) 14.0 - 18.0 g/dL 10/26/2024 4:11 AM EDT [facility] Blood, Arterial 10/26/2024 3 :31 AM EDT 10/26/2024 4:11 AM EDT us Harvey Domínguez III, MD POINT OF CARE TEST ORDERABLES Final Result Performing Organization Address City/[facility]/ZIP Co de Phone Number [facility] [address] * (ABNORMAL) POC hematocrit (10/26/2024 3:31 AM EDT) Pathologist [facility] POC Hematocrit 29.0(L) 40 - 52 % 10/26/2024 4:11 AM EDT [facility] Blood, Arterial 10/26/2024 3 :31 AM EDT 10/26/2024 4:11 AM EDT us Harvey Domínguez III, MD POINT OF CARE TEST ORDERABLES Final Result [facility] [address] * (ABNORMAL) POC Lactate (10/26/2024 3:31 AM EDT) POC Lactate 3.54(H) 0.50 - 2.20 mmol/L 10/26/2024 4:11 AM EDT [facility] Blood, Arterial 10/26/2024 3 :31 AM EDT 10/26/2024 4:11 AM EDT us Harvey Domínguez III, MD POINT OF CARE TEST ORDERABLES Final Result Performing Organization Address City/[facility]/ZIP Co de Phone Number [facility] [address] [facility] * (ABNORMAL) POC Glucose (10/26/2024 3:31 AM EDT) POC Glucose, Arterial 153(H) 70 - 100 mg/dL 10/26/2024 4:11 AM EDT [facility] Blood, Arterial 10/26/2024 3 :31 AM EDT 10/26/2024 4:11 AM EDT us Harvey Domínguez III, MD POINT OF CARE TEST ORDERABLES Final Result Performing Organization Address [facility] Co de Phone Number [facility] [address] [facility] * POC Ionized Calcium (10/26/2024 3:31 AM EDT) POC Ionized Calcium 5.10 4.50 - 5.30 mg/dL 10/26/2024 4:11 AM EDT [facility] Blood, Arterial 10/26/2024 3 :31 AM EDT 10/26/2024 4:11 AM EDT us Harvey Domínguez III, MD POINT OF CARE TEST ORDERABLES Final Result Performing Organization Address City/[facility]/ZIP Co de Phone Number [facility] [address] [facility] * (ABNORMAL) POC Potassium (10/26/2024 3:31 AM EDT) POC Potassium 2.6(LL) 3.5 - 5.3 mmol/L 10/26/2024 4:11 AM EDT [facility] Blood, Arterial 10/26/2024 3 :31 AM EDT 10/26/2024 4:11 AM EDT us Harvey Domínguez III, MD POINT OF CARE TEST ORDERABLES Final Result [facility] [address] [facility] * POC Sodium (10/26/2024 3:31 AM EDT) POC Sodium 138 136 - 146 mmol/L 10/26/2024 4:11 AM EDT [facility] Blood, Arterial 10/26/2024 3 :31 AM EDT 10/26/2024 4:11 AM EDT us Harvey Domínguez III, MD POINT OF CARE TEST ORDERABLES Final Result Performing Organization Address [facility] Co de Phone Number [facility] [address] [facility]. [address] * (ABNORMAL) POC TCO2 (10/26/2024 3:31 AM EDT) POC TCO2, Arterial 19(L) 23 - 27 mmol/L 10/26/2024 4:11 AM EDT [facility] Blood, Arterial 10/26/2024 3 :31 AM EDT 10/26/2024 4:11 AM EDT us Harvey Domínguez III, MD POINT OF CARE TEST ORDERABLES Final Result Performing Organization Address City/[facility]/ZIP Co de Phone Number [facility] [address] [facility]. [address] * POC O2 SAT (10/26/2024 3:31 AM EDT) POC O2 Saturation, Arterial 97 95 - 98 % 10/26/2024 4:11 AM EDT [facility] Blood, Arterial 10/26/2024 3 :31 AM EDT 10/26/2024 4:11 AM EDT us Harvey Domínguez III, MD POINT OF CARE TEST ORDERABLES Final Result Performing Organization Address City/[facility]/ZIP Co de Phone Number [facility] [address] * (ABNORMAL) POC Base Excess (10/26/2024 3:31 AM EDT) POC Base Excess, Arterial -9(L) -2 - 3 mmol/L 10/26/2024 4:11 AM EDT [facility] Blood, Arterial 10/26/2024 3 :31 AM EDT 10/26/2024 4:11 AM EDT us Harvey Domínguez III, MD POINT OF CARE TEST ORDERABLES Final Result Performing Organization Address [facility] Co de Phone Number [facility] [address] [place] [address]. [address] * (ABNORMAL) POC HCO3 (10/26/2024 3:31 AM EDT) POC HCO3, Arterial 18(L) 22 - 26 mmol/L 10/26/2024 4:11 AM EDT [facility] Blood, Arterial 10/26/2024 3 :31 AM EDT 10/26/2024 4:11 AM EDT us Harvey Domínguez III, MD POINT OF CARE TEST ORDERABLES Final Result Performing Organization Address City/[facility] Co de Phone Number [facility] [address] [facility]. [address] * (ABNORMAL) POC PO2 (10/26/2024 3:31 AM EDT) POC pO2, Arterial 104(H) 80 - 100 mm Hg 10/26/2024 4:11 AM EDT [facility] Blood, Arterial 10/26/2024 3 :31 AM EDT 10/26/2024 4:11 AM EDT us Harvey Domínguez III, MD POINT OF CARE TEST ORDERABLES Final Result Performing Organization Address City/[facility] Co de Phone Number [facility] [address] [place] [address]. [address] * POC PCO2 (10/26/2024 3:31 AM EDT) POC pCO2, Arterial 42 35 - 45 mm Hg 10/26/2024 4:11 AM EDT [facility] Blood, Arterial 10/26/2024 3 :31 AM EDT 10/26/2024 4:11 AM EDT Harvey Domínguez III, MD POINT OF CARE TEST ORDERABLES Final Result Performing Organization Address [facility] de Phone Number [facility] [address] [facility]. [address] * (ABNORMAL) POC pH (10/26/2024 3:31 AM EDT) POC pH, Arterial 7.24(L) 7.35 - 7.45 10/26/2024 4:11 AM EDT [facility] Blood, Arterial 10/26/2024 3 :31 AM EDT 10/26/2024 4:11 AM EDT us Harvey Domínguez III, MD POINT OF CARE TEST ORDERABLES Final Result Performing Organization Address [facility] de Phone Number [facility] [address] [place] [address]. [address] * (ABNORMAL) TEG-Global With Lysis (Baseline TEG with LY30, Will NOT Show Heparin Effect) (53:31 AM EDT) Pathologist [facility] Citrated Kaolin Reaction Time (TEGLYSIS) 6.8 4.6 - 9.1 minutes 10/26/2024 5:02 AM EDT [facility] Citrated Rapid Teg Maximum Amplitude (TEGLYSIS) <40.0(L) 52.0 - 70.0 mm 10/26/2024 5:02 AM EDT [facility] Citrated Functional Fibrinogen Maximum Amplitude (TEGLYSIS) <4.0(L) 15.0 - 32.0 mm 10/26/2024 5:02 AM EDT [facility] Citrated Kaolin Percent Lysis (TEGLYSIS) 1.4 0.0 - 2.6 % 10/26/2024 5:02 AM EDT [facility] Whole Blood (Citrate) 10/26/2024 3:31 AM EDT 10/26/2024 3:40 AM EDT Eber Quinones MD LAB BLOOD ORDERABLES Fin al Result Performing Organization Address City/State/[facility] Co de Phone Number [facility] [address] * (ABNORMAL) CBC (10/26/2024 3:31 AM EDT) [facility] WBC 9.5 3.8 - 10.8 10E3/uL 10/26/2024 3:48 AM EDT [facility] RBC 3.68(L) 4.20 - 5.80 10E6/uL 10/26/2024 3:48 AM EDT [facility] Hemoglobin 11.5(L) 13.2 - 17.1 g/dL 10/26/2024 3:48 AM EDT [facility] Hematocrit 33.0(L) 38.5 - 50.0 % 10/26/2024 3:48 AM EDT [facility] MCV 89.6 80.0 - 100.0 fL 10/26/2024 3:48 AM EDT [facility] MCH 31.1 27.0 - 33.0 pg 10/26/2024 3:48 AM EDT [facility] MCHC 34.8 32.0 - 36.0 g/dL 10/26/2024 3:48 AM EDT [facility] RDW 19.3(H) 11.0 - 15.0 % 10/26/2024 3:48 AM EDT [facility] Platelets 67(L) 140 - 400 10E3/uL 10/26/2024 3:48 AM EDT [facility] MPV 7.9 7.5 - 11.5 fL 10/26/2024 3:48 AM EDT [facility] Whole Blood 10/26/2024 3:31 AM EDT 10/26/2024 3:40 AM EDT Eber Quinones MD LAB BLOOD ORDERABLES Fin al Result Performing Organization Address [facility] de Phone Number [facility] [address] [facility] * (ABNORMAL) Protime-INR (10/26/2024 3:31 AM EDT) Protime 27.0(H) 12.1 - 15.1 seconds 10/26/2024 3:51 AM EDT [facility] INR 2.4(H) 0.9 - 1.1 10/26/2024 3:51 AM EDT [facility] Comment: RECOMMENDED THERAPEUTIC RANGES USING INR : Stable oral anticoagulant therapy: 2.0 - 3.0 Mechanical prosthetic heart valve: 2.5 - 3.5 Recurrent acute myocardial infarction: 2.5 - 3.5 Plasma 10/26/2024 3:31 AM EDT 10/26/2024 3:40 AM EDT Eber Quinones MD LAB BLOOD ORDERABLES Fin al Result Performing Organization Address [facility] Co de Phone Number [facility] [address] [facility] * (ABNORMAL) Fibrinogen (10/26/2024 3:31 AM EDT) Fibrinogen 104(L) 218 - 406 mg/dL 10/26/2024 3:56 AM EDT [facility] Plasma 10/26/2024 3:31 AM EDT 10/26/2024 3:40 AM EDT Eber Quinones MD LAB BLOOD ORDERABLES Fin al Result [facility] [address] [place] [address], [facility] * Transfuse Fresh Frozen Plasma (10/26/2024 3:16 [...] Transfuse RBC (10/26/2024 2:01 AM EDT) us eBn Blake MD NURSING TREATMENT ORDERABLES - BLOOD [...] 0.8 - 1.4 10/27/2024 6:51 AM EDT [facility] Comment: Test results may vary using [...] TEST ORDERABLES Final Result Performing Organization Address [facility] Co de Phone Number [facility] [address] * Transfuse Fresh Frozen Plasma (10/26/2024 1:41 AM EDT) us Ben Blake MD NURSING TREATMENT ORDERABLES - BLOOD ADMIN Final Result * Transfuse RBC (10/26/2024 1:40 AM EDT) us Ben Blake MD NURSING TREATMENT ORDERABLES - BLOOD ADMIN Final Result * POC Sample Type (10/26/2024 1:40 AM EDT) POC Sample Type Arterial 10/26/2024 2:32 AM EDT [facility] Blood, Arterial 10/26/2024 1 :40 AM EDT 10/26/2024 2:32 AM EDT us Harvey Domínguez III, MD POINT OF CARE TEST ORDERABLES Final Result Performing Organization Address City/[facility] Co de Phone Number [facility] [address] [id number], [place] * POC Anion Gap (10/26/2024 1:40 AM EDT) POC Anion Gap, Arterial 13 3 - 16 mmol/L 10/26/2024 2:32 AM EDT [facility] Blood, Arterial 10/26/2024 1 :40 AM EDT 10/26/2024 2:32 AM EDT us Harvey Domínguez III, MD POINT OF CARE TEST ORDERABLES Final Result [facility] [address] * POC Chloride (10/26/2024 1:40 AM EDT) Pathologist [facility] POC Chloride 104 98 - 110 mmol/L 10/26/2024 2:32 AM EDT [facility] Blood, Arterial 10/26/2024 1 :40 AM EDT 10/26/2024 2:32 AM EDT us Harvey Domínguez III, MD POINT OF CARE TEST ORDERABLES Final Result Performing Organization Address City/[facility]/ZIP Co de Phone Number [facility] [address] * (ABNORMAL) POC Hemoglobin (10/26/2024 1:40 AM EDT) Pathologist [facility] POC Hemoglobin 7.4(L) 14.0 - 18.0 g/dL 10/26/2024 2:32 AM EDT [facility] Blood, Arterial 10/26/2024 1 :40 AM EDT 10/26/2024 2:32 AM EDT us Harvey Domínguez III, MD POINT OF CARE TEST ORDERABLES Final Result Performing Organization Address City/[facility]/ZIP Co de Phone Number [facility] [address] * (ABNORMAL) POC hematocrit (10/26/2024 1:40 AM EDT) POC Hematocrit 22.0(L) 40 - 52 % 10/26/2024 2:32 AM EDT [facility] Blood, Arterial 10/26/2024 1 :40 AM EDT 10/26/2024 2:32 AM EDT us Harvey Domínguez III, MD POINT OF CARE TEST ORDERABLES Final Result Performing Organization Address City/[facility] Co de Phone Number [facility] [address] [facility] * (ABNORMAL) POC Lactate (10/26/2024 1:40 AM EDT) Pathologist [facility] POC Lactate 2.30(H) 0.50 - 2.20 mmol/L 10/26/2024 2:32 AM EDT [facility] Blood, Arterial 10/26/2024 1 :40 AM EDT 10/26/2024 2:32 AM EDT us Harvey Domínguez III, MD POINT OF CARE TEST ORDERABLES Final Result Performing Organization Address [facility] Co de Phone Number [facility] [address] [facility] * (ABNORMAL) POC Glucose (10/26/2024 1:40 AM EDT) POC Glucose, Arterial 116(H) 70 - 100 mg/dL 10/26/2024 2:32 AM EDT [facility] Blood, Arterial 10/26/2024 1 :40 AM EDT 10/26/2024 2:32 AM EDT us Harvey Domínguez III, MD POINT OF CARE TEST ORDERABLES Final Result Performing Organization Address City/[facility] Co de Phone Number [facility] [address] [facility] * (ABNORMAL) POC Ionized Calcium (10/26/2024 1:40 AM EDT) POC Ionized Calcium 4.10(L) 4.50 - 5.30 mg/dL 10/26/2024 2:32 AM EDT [facility] Blood, Arterial 10/26/2024 1 :40 AM EDT 10/26/2024 2:32 AM EDT us Harvey Domínguez III, MD POINT OF CARE TEST ORDERABLES Final Result Performing Organization Address City/[facility]/ZIP Co de Phone Number [facility] [address] [facility] * (ABNORMAL) POC Potassium (10/26/2024 1:40 AM EDT) Pathologist [facility] POC Potassium 2.6(LL) 3.5 - 5.3 mmol/L 10/26/2024 2:32 AM EDT [facility] Blood, Arterial 10/26/2024 1 :40 AM EDT 10/26/2024 2:32 AM EDT us Harvey Domínguez III, MD POINT OF CARE TEST ORDERABLES Final Result Performing Organization Address [facility] Co de Phone Number [facility] [address] [place] [address]. [address] * (ABNORMAL) POC Sodium (10/26/2024 1:40 AM EDT) Pathologist [facility] POC Sodium 135(L) 136 - 146 mmol/L 10/26/2024 2:32 AM EDT [facility] Blood, Arterial 10/26/2024 1 :40 AM EDT 10/26/2024 2:32 AM EDT us Harvey Domínguez III, MD POINT OF CARE TEST ORDERABLES Final Result Performing Organization Address City/[facility] Co de Phone Number [facility] [address] [facility] * (ABNORMAL) POC TCO2 (10/26/2024 1:40 AM EDT) POC TCO2, Arterial 19(L) 23 - 27 mmol/L 10/26/2024 2:32 AM EDT [facility] Blood, Arterial 10/26/2024 1 :40 AM EDT 10/26/2024 2:32 AM EDT us Harvey Domínguez III, MD POINT OF CARE TEST ORDERABLES Final Result Performing Organization Address City/[facility]/ZIP Co de Phone Number [facility] [address] * (ABNORMAL) POC O2 SAT (10/26/2024 1:40 AM EDT) POC O2 Saturation, Arterial 99(H) 95 - 98 % 10/26/2024 2:32 AM EDT [facility] Blood, Arterial 10/26/2024 1 :40 AM EDT 10/26/2024 2:32 AM EDT us Harvey Domínguez III, MD POINT OF CARE TEST ORDERABLES Final Result Performing Organization Address [facility] Co de Phone Number [facility] [address] [facility] * (ABNORMAL) POC Base Excess (10/26/2024 1:40 AM EDT) POC Base Excess, Arterial -7(L) -2 - 3 mmol/L 10/26/2024 2:32 AM EDT [facility] Blood, Arterial 10/26/2024 1 :40 AM EDT 10/26/2024 2:32 AM EDT us Harvey Domínguez III, MD POINT OF CARE TEST ORDERABLES Final Result Performing Organization Address City/[facility] Co de Phone Number [facility] [address] [facility] * (ABNORMAL) POC HCO3 (10/26/2024 1:40 AM EDT) POC HCO3, Arterial 18(L) 22 - 26 mmol/L 10/26/2024 2:32 AM EDT [facility] Blood, Arterial 10/26/2024 1 :40 AM EDT 10/26/2024 2:32 AM EDT us Harvey Domínguez III, MD POINT OF CARE TEST ORDERABLES Final Result Performing Organization Address City/[facility] Co de Phone Number [facility] [address] [facility] * (ABNORMAL) POC PO2 (10/26/2024 1:40 AM EDT) POC pO2, Arterial 145(H) 80 - 100 mm Hg 10/26/2024 2:32 AM EDT [facility] Blood, Arterial 10/26/2024 1 :40 AM EDT 10/26/2024 2:32 AM EDT us Harvey Domínguez III, MD POINT OF CARE TEST ORDERABLES Final Result Performing Organization Address [facility] Co de Phone Number [facility] [address] [place] [address]. [address] * (ABNORMAL) POC PCO2 (10/26/2024 1:40 AM EDT) POC pCO2, Arterial 33(L) 35 - 45 mm Hg 10/26/2024 2:32 AM EDT [facility] Blood, Arterial 10/26/2024 1 :40 AM EDT 10/26/2024 2:32 AM EDT us Harvey Domínguez III, MD POINT OF CARE TEST ORDERABLES Final Result Performing Organization Address City/[facility] Co de Phone Number [facility] [address] [facility] * POC pH (10/26/2024 1:40 AM EDT) POC pH, Arterial 7.35 7.35 - 7.45 10/26/2024 2:32 AM EDT [facility] Blood, Arterial 10/26/2024 1 :40 AM EDT 10/26/2024 2:32 AM EDT us Harvey Domínguez III, MD POINT OF CARE TEST ORDERABLES Final Result Performing Organization Address City/[facility]/ZIP Co de Phone Number [facility] [address] * Transfuse Fresh Frozen Plasma (10/26/2024 1:20 AM EDT) us Ben Blake MD NURSING TREATMENT ORDERABLES - BLOOD ADMIN Final Result * Transfuse RBC (10/26/2024 12:56 AM EDT) us Ben Blake MD NURSING TREATMENT ORDERABLES - BLOOD ADMIN Final Result * (ABNORMAL) POC INR (10/26/2024 12:41 AM EDT) Pathologist [facility] Prothrombin Time INR, POC 2.0(H) 0.8 - 1.4 10/27/2024 6:51 AM EDT [facility] Comment: Test results may vary using [...] TEST ORDERABLES Final Result Performing Organization Address City/[facility] Co de Phone Number [facility] [address] * POC Sample Type (10/26/2024 12:39 AM EDT) POC Sample Type Arterial 10/26/2024 1:38 AM EDT [facility] Blood, Arterial 10/26/2024 1 2:39 AM EDT 10/26/2024 1:38 AM EDT us Harvey Domínguez III, MD POINT OF CARE TEST ORDERABLES Final Result Performing Organization Address City/[facility] Co de Phone Number [facility] [address] [facility] * POC Anion Gap (10/26/2024 12:39 AM EDT) POC Anion Gap, Arterial 13 3 - 16 mmol/L 10/26/2024 1:38 AM EDT [facility] Blood, Arterial 10/26/2024 1 2:39 AM EDT 10/26/2024 1:38 AM EDT us Harvey Domínguez III, MD POINT OF CARE TEST ORDERABLES Final Result Performing Organization Address [facility] Co de Phone Number [facility] [address] [facility]. [address] * POC Chloride (10/26/2024 12:39 AM EDT) POC Chloride 103 98 - 110 mmol/L 10/26/2024 1:38 AM EDT [facility] Blood, Arterial 10/26/2024 1 2:39 AM EDT 10/26/2024 1:38 AM EDT us Harvey Domínguez III, MD POINT OF CARE TEST ORDERABLES Final Result Performing Organization Address City/[facility] Co de Phone Number [facility] [address] [facility] * (ABNORMAL) POC Hemoglobin (10/26/2024 12:39 AM EDT) POC Hemoglobin 7.9(L) 14.0 - 18.0 g/dL 10/26/2024 1:38 AM EDT [facility] Blood, Arterial 10/26/2024 1 2:39 AM EDT 10/26/2024 1:38 AM EDT us Harvey Domínguez III, MD POINT OF CARE TEST ORDERABLES Final Result Performing Organization Address [facility] Co de Phone Number [facility] [address] [facility]. [address] * (ABNORMAL) POC hematocrit (10/26/2024 12:39 AM EDT) POC Hematocrit 23.0(L) 40 - 52 % 10/26/2024 1:38 AM EDT [facility] Blood, Arterial 10/26/2024 1 2:39 AM EDT 10/26/2024 1:38 AM EDT us Harvey Domínguez III, MD POINT OF CARE TEST ORDERABLES Final Result Performing Organization Address [facility] Co de Phone Number [facility] [address] [facility]. [address] * POC Lactate (10/26/2024 12:39 AM EDT) Pathologist [facility] POC Lactate 1.39 0.50 - 2.20 mmol/L 10/26/2024 1:38 AM EDT [facility] Blood, Arterial 10/26/2024 1 2:39 AM EDT 10/26/2024 1:38 AM EDT us Harvey Domínguez III, MD POINT OF CARE TEST ORDERABLES Final Result Performing Organization Address City/[facility] Co de Phone Number [facility] [address] * (ABNORMAL) POC Glucose (10/26/2024 12:39 AM EDT) POC Glucose, Arterial 116(H) 70 - 100 mg/dL 10/26/2024 1:38 AM EDT [facility] Blood, Arterial 10/26/2024 1 2:39 AM EDT 10/26/2024 1:38 AM EDT us Harvey Domínguez III, MD POINT OF CARE TEST ORDERABLES Final Result Performing Organization Address City/[facility]/ZIP Co de Phone Number [facility] [address] * (ABNORMAL) POC Ionized Calcium (10/26/2024 12:39 AM EDT) POC Ionized Calcium 4.30(L) 4.50 - 5.30 mg/dL 10/26/2024 1:38 AM EDT [facility] Blood, Arterial 10/26/2024 1 2:39 AM EDT 10/26/2024 1:38 AM EDT us Harvey Domínguez III, MD POINT OF CARE TEST ORDERABLES Final Result Performing Organization Address City/[facility] Co de Phone Number [facility] [address] [facility]. [address] * (ABNORMAL) POC Potassium (10/26/2024 12:39 AM EDT) Pathologist [facility] POC Potassium 2.4(LL) 3.5 - 5.3 mmol/L 10/26/2024 1:38 AM EDT [facility] Blood, Arterial 10/26/2024 1 2:39 AM EDT 10/26/2024 1:38 AM EDT us Harvey Domínguez III, MD POINT OF CARE TEST ORDERABLES Final Result Performing Organization Address City/[facility] Co de Phone Number [facility] [address] [facility]. [address] * POC Sodium (10/26/2024 12:39 AM EDT) POC Sodium 136 136 - 146 mmol/L 10/26/2024 1:38 AM EDT [facility] Blood, Arterial 10/26/2024 1 2:39 AM EDT 10/26/2024 1:38 AM EDT us Harvey Domínguez III, MD POINT OF CARE TEST ORDERABLES Final Result Performing Organization Address City/[facility]/ZIP Co de Phone Number [facility] [address] * (ABNORMAL) POC TCO2 (10/26/2024 12:39 AM EDT) POC TCO2, Arterial 21(L) 23 - 27 mmol/L 10/26/2024 1:38 AM EDT [facility] Blood, Arterial 10/26/2024 1 2:39 AM EDT 10/26/2024 1:38 AM EDT us Harvey Domínguez III, MD POINT OF CARE TEST ORDERABLES Final Result Performing Organization Address [facility] Co de Phone Number [facility] [address] [facility]. [address] * POC O2 SAT (10/26/2024 12:39 AM EDT) POC O2 Saturation, Arterial 98 95 - 98 % 10/26/2024 1:38 AM EDT [facility] Blood, Arterial 10/26/2024 1 2:39 AM EDT 10/26/2024 1:38 AM EDT us Harvey Domínguez III, MD POINT OF CARE TEST ORDERABLES Final Result Performing Organization Address City/[facility]/ZIP Co de Phone Number [facility] [address] * (ABNORMAL) POC Base Excess (10/26/2024 12:39 AM EDT) POC Base Excess, Arterial -7(L) -2 - 3 mmol/L 10/26/2024 1:38 AM EDT [facility] Blood, Arterial 10/26/2024 1 2:39 AM EDT 10/26/2024 1:38 AM EDT Harvey Domínguez III, MD POINT OF CARE TEST ORDERABLES Final Result Performing Organization Address [facility] Co de Phone Number [facility] [address] * (ABNORMAL) POC HCO3 (10/26/2024 12:39 AM EDT) POC HCO3, Arterial 20(L) 22 - 26 mmol/L 10/26/2024 1:38 AM EDT [facility] Blood, Arterial 10/26/2024 1 2:39 AM EDT 10/26/2024 1:38 AM EDT Harvey Domínguez III, MD POINT OF CARE TEST ORDERABLES Final Result Performing Organization Address [facility] Co de Phone Number [facility] - [facility] [address] [facility]. [address] * (ABNORMAL) POC PO2 (10/26/2024 12:39 AM EDT) POC pO2, Arterial 117(H) 80 - 100 mm Hg 10/26/2024 1:38 AM EDT [facility] Blood, Arterial 10/26/2024 1 2:39 AM EDT 10/26/2024 1:38 AM EDT Harvey Domínguez III, MD POINT OF CARE TEST ORDERABLES Final Result Performing Organization Address [facility] Co de Phone Number [facility] [address] * (ABNORMAL) POC PCO2 (10/26/2024 12:39 AM EDT) POC pCO2, Arterial 46(H) 35 - 45 mm Hg 10/26/2024 1:38 AM EDT [facility] Blood, Arterial 10/26/2024 1 2:39 AM EDT 10/26/2024 1:38 AM EDT Harvey Domínguez III, MD POINT OF CARE TEST ORDERABLES Final Result Performing Organization Address City/[facility]/ZIP Co de Phone Number [facility] [address] * (ABNORMAL) POC pH (10/26/2024 12:39 AM EDT) POC pH, Arterial 7.24(L) 7.35 - 7.45 10/26/2024 1:38 AM EDT [facility] Blood, Arterial 10/26/2024 1 2:39 AM EDT 10/26/2024 1:38 AM EDT Harvey Domínguez III, MD POINT OF CARE TEST ORDERABLES Final Result Performing Organization Address [facility] Co de Phone Number [facility] [address] * Transfuse Platelets (10/26/2024 12:37 AM [...] AM EDT) Gram Stain Result Cytospin Results: [facility] Gram Stain Result Polymorphonuclear Leukocytes Seen; [facility] Gram Stain Result No Organisms Seen; [facility] Culture Result No Growth After 3 Days [facility] Surgical Swab ABDOMEN / Unknown 12:03 AM EDT Comment:2.) Ascites Anaerobhic culture Fungus culture Routine culture plus stain Narrative [facility] - 10/28/2024 9:38 PM EDT 2.) Ascites Anaerobhic culture Fungus culture Routine culture plus stain 2.) Ascites Harvey Domínguez III, MD MICROBIOLOGY - GENE RAL ORDERABLES Final Result [facility] [address] [place] [address], [facility] * Surgical Pathology Exam (10/26/2024 12:00 AM EDT) 10/26/2024 10/27/2024 Narrative [facility] - 10/26/2024 12:00 AM EDT CASE: [id number] PATIENT: BLAIR GILBERT Clinical History: Liver - kidney transplant Pre-Operative Diagnosis: Alcoholic cirrhosis of liver Post-Operative Diagnosis: Alcoholic cirrhosis of liver Specimen(s) Submitted: A. kake liver CPT Code(s): 56045 X 1; 71291 X 5 Additional Information: FINAL DIAGNOSIS: A. 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 - Negative for neoplasm. - Increased hepatocellular iron deposition (3+; Modified Scheuer). Gall bladder: -Intramucosal and submucosal vascular congestion and hemorrhage. - Negative for dysplasia or malignancy. Gross Description: Received in formalin, labeled Blair Gilbert and kake liver , is a 2338-gram, hepatectomy specimen [...] discrete masses or other lesions are identified. Structural Engineering Drafting Officer sections are submitted in cassettes [id number] as follows: A1: Hilar margins, en face. [...] Pathologist signing this report is located at [facility], [address] [place] [address], [facility] [phone], CLIA ID: [id number] Harvey Domínguez III, MD PATHOLOGY/CYTOLOGY ORDERABLES Final [...] (ABNORMAL) POC INR (10/25/2024 11:43 PM EDT) [facility] Prothrombin Time INR, POC 1.7(H) 0.8 - 1.4 10/27/2024 6:51 AM EDT [facility] Comment: Test results may vary using [...] TEST ORDERABLES Final Result Performing Organization Address City/[facility]/ZIP Co de Phone Number [facility] [address] * POC Sample Type (10/25/2024 11:40 PM EDT) [facility] POC Sample Type Arterial 10/25/2024 11:57 PM EDT [facility] Blood, Arterial 10/25/2024 1 1:40 PM EDT 10/25/2024 11:57 PM EDT Harvey Domínguez III, MD POINT OF CARE TEST ORDERABLES Final Result [facility] [address] * POC Anion Gap (10/25/2024 11:40 PM EDT) [facility] POC Anion Gap, Arterial 13 3 - 16 mmol/L 10/25/2024 11:57 PM EDT [facility] Blood, Arterial 10/25/2024 1 1:40 PM EDT 10/25/2024 11:57 PM EDT Harvey Domínguez III, MD POINT OF CARE TEST ORDERABLES Final Result Performing Organization Address City/[facility] Co de Phone Number [facility] [address] * POC Chloride (10/25/2024 11:40 PM EDT) POC Chloride 102 98 - 110 mmol/L 10/25/2024 11:57 PM EDT [facility] Blood, Arterial 10/25/2024 1 1:40 PM EDT 10/25/2024 11:57 PM EDT Harvey Domínguez III, MD POINT OF CARE TEST ORDERABLES Final Result Performing Organization Address [facility] Co de Phone Number [facility] [address] [facility]. [address] * (ABNORMAL) POC Hemoglobin (10/25/2024 11:40 PM EDT) POC Hemoglobin 6.6(L) 14.0 - 18.0 g/dL 10/25/2024 11:57 PM EDT [facility] Blood, Arterial 10/25/2024 1 1:40 PM EDT 10/25/2024 11:57 PM EDT Harvey Domínguez III, MD POINT OF CARE TEST ORDERABLES Final Result Performing Organization Address [facility] Co de Phone Number [facility] [address] * (ABNORMAL) POC hematocrit (10/25/2024 11:40 PM EDT) POC Hematocrit 19.0(L) 40 - 52 % 10/25/2024 11:57 PM EDT [facility] Blood, Arterial 10/25/2024 1 1:40 PM EDT 10/25/2024 11:57 PM EDT us Harvey Domínguez III, MD POINT OF CARE TEST ORDERABLES Final Result [facility] [address] * POC Lactate (10/25/2024 11:40 PM EDT) POC Lactate 1.36 0.50 - 2.20 mmol/L 10/25/2024 11:57 PM EDT [facility] Blood, Arterial 10/25/2024 1 1:40 PM EDT 10/25/2024 11:57 PM EDT Harvey Domínguez III, MD POINT OF CARE TEST ORDERABLES Final Result Performing Organization Address City/[facility] Co de Phone Number [facility] [address] * (ABNORMAL) POC Glucose (10/25/2024 11:40 PM EDT) POC Glucose, Arterial 101(H) 70 - 100 mg/dL 10/25/2024 11:57 PM EDT [facility] Blood, Arterial 10/25/2024 1 1:40 PM EDT 10/25/2024 11:57 PM EDT Harvey Domínguez III, MD POINT OF CARE TEST ORDERABLES Final Result [facility] [address] * POC Ionized Calcium (10/25/2024 11:40 PM EDT) POC Ionized Calcium 4.50 4.50 - 5.30 mg/dL 10/25/2024 11:57 PM EDT [facility] Blood, Arterial 10/25/2024 1 1:40 PM EDT 10/25/2024 11:57 PM EDT us Harvey Domínguez III, MD POINT OF CARE TEST ORDERABLES Final Result Performing Organization Address [facility] Co de Phone Number [address] * (ABNORMAL) POC Potassium (10/25/2024 11:40 PM EDT) POC Potassium 1.9(LL) 3.5 - 5.3 mmol/L 10/25/2024 11:57 PM EDT [facility] Blood, Arterial 10/25/2024 1 1:40 PM EDT 10/25/2024 11:57 PM EDT Harvey Domínguez III, MD POINT OF CARE TEST ORDERABLES Final Result Performing Organization Address [facility] Co de Phone Number [address] * (ABNORMAL) POC Sodium (10/25/2024 11:40 PM EDT) POC Sodium 135(L) 136 - 146 mmol/L 10/25/2024 11:57 PM EDT [facility] Blood, Arterial 10/25/2024 1 1:40 PM EDT 10/25/2024 11:57 PM EDT Harvey Domínguez III, MD POINT OF CARE TEST ORDERABLES Final Result Performing Organization Address City/[facility] Co de Phone Number [address] [facility]. [address] * (ABNORMAL) POC TCO2 (10/25/2024 11:40 PM EDT) POC TCO2, Arterial 21(L) 23 - 27 mmol/L 10/25/2024 11:57 PM EDT [facility] Blood, Arterial 10/25/2024 1 1:40 PM EDT 10/25/2024 11:57 PM EDT us Harvey Domínguez III, MD POINT OF CARE TEST ORDERABLES Final Result Performing Organization Address City/[facility]/ZIP Co de Phone Number [facility] [address] [place] [address]. [address] * POC O2 SAT (10/25/2024 11:40 PM EDT) POC O2 Saturation, Arterial 98 95 - 98 % 10/25/2024 11:57 PM EDT [facility] Blood, Arterial 10/25/2024 1 1:40 PM EDT 10/25/2024 11:57 PM EDT Harvey Domínguez III, MD POINT OF CARE TEST ORDERABLES Final Result Performing Organization Address [facility] Co de Phone Number [address] * (ABNORMAL) POC Base Excess (10/25/2024 11:40 PM EDT) POC Base Excess, Arterial -6(L) -2 - 3 mmol/L 10/25/2024 11:57 PM EDT [facility] Blood, Arterial 10/25/2024 1 1:40 PM EDT 10/25/2024 11:57 PM EDT Harvey Domínguez III, MD POINT OF CARE TEST ORDERABLES Final Result Performing Organization Address City/[facility]/ZIP Co de Phone Number [address] * (ABNORMAL) POC HCO3 (10/25/2024 11:40 PM EDT) POC HCO3, Arterial 20(L) 22 - 26 mmol/L 10/25/2024 11:57 PM EDT [facility] Blood, Arterial 10/25/2024 1 1:40 PM EDT 10/25/2024 11:57 PM EDT Harvey Domínguez III, MD POINT OF CARE TEST ORDERABLES Final Result [facility] [address] [facility]. [address] * (ABNORMAL) POC PO2 (10/25/2024 11:40 PM EDT) POC pO2, Arterial 107(H) 80 - 100 mm Hg 10/25/2024 11:57 PM EDT [facility] Blood, Arterial 10/25/2024 1 1:40 PM EDT 10/25/2024 11:57 PM EDT Harvey Domínguez III, MD POINT OF CARE TEST ORDERABLES Final Result Performing Organization Address [facility] Co de Phone Number [facility] [address] [facility]. [address] * POC PCO2 (10/25/2024 11:40 PM EDT) POC pCO2, Arterial 41 35 - 45 mm Hg 10/25/2024 11:57 PM EDT [facility] Blood, Arterial 10/25/2024 1 1:40 PM EDT 10/25/2024 11:57 PM EDT Harvey Domínguez III, MD POINT OF CARE TEST ORDERABLES Final Result Performing Organization Address City/[facility]/ZIP Co de Phone Number [facility] [address] * (ABNORMAL) POC pH (10/25/2024 11:40 PM EDT) POC pH, Arterial 7.29(L) 7.35 - 7.45 10/25/2024 11:57 PM EDT [facility] Blood, Arterial 10/25/2024 1 1:40 PM EDT 10/25/2024 11:57 PM EDT us Harvey Domínguez III, MD POINT OF CARE TEST ORDERABLES Final Result [facility] [address] * Urine culture (10/25/2024 11:08 PM EDT) Culture Result <1,000 cfu/mL [facility] Culture Result Skin/Urogeni rony Mckayla. No Further Workup. [facility] Newly Placed Brekowitz Urine URINE SPECIMEN / Unknown 10/25/2024 11:08 PM EDT Comment:urine culture Narrative [facility] - 10/28/2024 9:59 AM EDT urine culture urine culture Harvey Domínguez III, MD MICROBIOLOGY - GENE RAL ORDERABLES Final Result Performing Organization Address City/[facility]/ZIP Co de Phone Number [facility] [address] * X-ray Portable Chest (10/25/2024 10:19 [...] - 2.2 mmol/L 10/25/2024 10:39 PM EDT [facility] Plasma 10/25/2024 10:1 7 PM EDT 10/25/2024 10:17 PM EDT us Ben Blake MD LAB BLOOD ORDERABLES Final Re sult [facility] [address] * (ABNORMAL) Ferritin (10/25/2024 10:17 PM EDT) Ferritin 623.2(H) 23.9 - 336.2 ng/mL 10/25/2024 11:02 PM EDT [facility] Serum 10/25/2024 10:1 7 PM EDT 10/25/2024 10:17 PM EDT us Leandra Og MD LAB BLOOD ORDERABLES F inal Result [facility] [address] [facility]. [address] * Iron Studies (Iron + TIBC) (10/25/2024 10:17 PM EDT) Iron 128 50 - 212 ug/dL 10/25/2024 10:44 PM EDT [facility] % Iron Saturation SEE COMMENT 15.0 - 55.0 % 10/25/2024 10:44 PM EDT [facility] Comment:Unable to calculate result because contributing result outside reportable range.. TIBC SEE COMMENT 261 - 462 ug/dL 10/25/2024 10:44 PM EDT [facility] Comment:Unable to calculate result because contributing result outside reportable range.. Serum 10/25/2024 10:1 7 PM EDT 10/25/2024 10:17 PM EDT Leandra Og MD LAB BLOOD ORDERABLES F inal Result Performing Organization Address City/[facility]/ZIP Co de Phone Number [facility] [address] [facility]. [address] * PTH (10/25/2024 10:17 PM EDT) Pathologist [facility] PTH 36.0 12.0 - 88.0 pg/mL 10/25/2024 11:01 PM EDT [facility] Serum 10/25/2024 10:1 7 PM EDT 10/25/2024 10:17 PM EDT Leandra Og MD LAB BLOOD ORDERABLES F inal Result [facility] [address] [facility] * HIV 1+2 Antibody/Antigen with Reflex (10/25/2024 10:17 PM EDT) Pathologist [facility] HIV 1+2 AB/AGN Nonreactive Nonreactive 10/25/2024 11:03 PM EDT [facility] Serum 10/25/2024 10:1 7 PM EDT 10/25/2024 10:16 PM EDT [facility] - 10/25/2024 11:03 PM EDT \HIVRNR us Leandra Og MD LAB BLOOD ORDERABLES F inal Result Performing Organization Address [facility] Co de Phone Number [facility] [address] [place] [address]. [address] * Hepatitis B Core Antibody (10/25/2024 10:17 PM EDT) Hep B Core Total Ab Nonreactive Nonreactive 10/25/2024 11:07 PM EDT [facility] Comment:Health Department no tified in accordance with reportable infectious disease guidelines. Serum 10/25/2024 10:1 7 PM EDT 10/25/2024 10:17 PM EDT [facility] - 10/25/2024 11:07 PM EDT A nonreactive final interpretation indicates that anti-HBc antibodies were not detected in the sample; it is possible that the individual is not infected with HBV. us Leandra Og MD LAB BLOOD ORDERABLES F inal Result Performing Organization Address [facility] Co de Phone Number [facility] [address] [place] [address]. [address] * Hepatitis C Antibody (10/25/2024 10:17 PM EDT) HCV Ab Nonreactive Nonreactive 10/25/2024 11:16 PM EDT [facility] Comment:Health Department no tified in accordance with reportable infectious disease guidelines. Serum 10/25/2024 10:1 7 PM EDT 10/25/2024 10:17 PM EDT [facility] - 10/25/2024 11:16 PM EDT Antibodies to HCV not detected; does not exclude the possibility of exposure to HCV. us Leandra Og MD LAB BLOOD ORDERABLES F inal Result [facility] [address] [facility]. [address] * (ABNORMAL) Hepatitis B Surface Antibody, Quantitati (10/25/2024 10:17 PM EDT) HBSAB NUMBER 10.70(H) 0.00 - 9.99 mIU/mL 10/25/2024 11:52 PM EDT [facility] Hep B S Ab Equivocal (A) Nonreactive 10/25/2024 11:52 PM EDT [facility] Serum 10/25/2024 10:1 7 PM EDT 10/25/2024 10:17 PM EDT Leandra Og MD LAB BLOOD ORDERABLES F inal Result Performing Organization Address [facility]/ZIP Co de Phone Number [facility] [address] [facility]. [address] * Hepatitis B surface antigen (10/25/2024 10:17 PM EDT) Pathologist [facility] Hep B Surface Ag Nonreactive Nonreactive 10/25/2024 11:12 PM EDT [facility] Comment:Health Department no tified in accordance with reportable infectious disease guidelines. Serum 10/25/2024 10:1 7 PM EDT 10/25/2024 10:17 PM EDT Narrative [facility] - 10/25/2024 11:12 PM EDT Specimen is considered negative for HBsAg. Leandra Og MD LAB BLOOD ORDERABLES F inal Result [facility] [address] [facility]. [address] * Hepatitis A Antibody Total (10/25/2024 10:17 PM EDT) Anti-HAV Total (IgG + IgM) Nonreactive 10/25/2024 11:13 PM EDT [facility] Serum 10/25/2024 10:1 7 PM EDT 10/25/2024 10:17 PM EDT Narrative [facility] - 10/25/2024 11:13 PM EDT HAV antibodies not detected Leandra Og MD LAB BLOOD ORDERABLES F inal Result Performing Organization Address [facility] Co de Phone Number [facility] [address] [facility] * (ABNORMAL) Hepatic Function Panel (10/25/2024 10:17 PM EDT) Total Bilirubin 9.1(H) 0.0 - 1.5 mg/dL 10/25/2024 10:47 PM EDT [facility] Bilirubin, Direct 4.58(H) 0.00 - 0.40 mg/dL 10/25/2024 10:47 PM EDT [facility] AST 51(H) 13 - 39 U/L 10/25/2024 10:47 PM EDT [facility] ALT 23 7 - 52 U/L 10/25/2024 10:47 PM EDT [facility] Alkaline Phosphatase 144(H) 36 - 125 U/L 10/25/2024 10:47 PM EDT [facility] Total Protein 5.5(L) 6.4 - 8.9 g/dL 10/25/2024 10:47 PM EDT [facility] Albumin 3.5 3.5 - 5.7 g/dL 10/25/2024 10:47 PM EDT [facility] Bilirubin, Indirect 4.52(H) 0.00 - 1.10 mg/dL 10/25/2024 10:47 PM EDT [facility] Plasma 10/25/2024 10:1 7 PM EDT 10/25/2024 10:17 PM EDT us Leandra Og MD LAB BLOOD ORDERABLES F inal Result Performing Organization Address [facility]/ZIP Co de Phone Number [facility] [address] * (ABNORMAL) Renal Function Panel w/EGFR (10/25/2024 10:17 PM EDT) Sodium 137 133 - 146 mmol/L 10/25/2024 10:47 PM EDT [facility] Potassium 2.1(LL) 3.5 - 5.3 mmol/L 10/25/2024 10:47 PM EDT [facility] Comment:Critical Result K:2. 1 Called to and read back by: ALICIA CARCAMO RN at: 10/25/2024 22:47:45 by:NANCY Chloride 100 98 - 110 mmol/L 10/25/2024 10:47 PM EDT [facility] CO2 20(L) 21 - 33 mmol/L 10/25/2024 10:47 PM EDT [facility] Anion Gap 17(H) 3 - 16 mmol/L 10/25/2024 10:47 PM EDT [facility] BUN 74(H) 7 - 25 mg/dL 10/25/2024 10:47 PM EDT [facility] Creatinine 3.87(H) 0.60 - 1.30 mg/dL 10/25/2024 10:47 PM EDT [facility] Glucose 114(H) 70 - 100 mg/dL 10/25/2024 10:47 PM EDT [facility] Calcium 9.3 8.6 - 10.3 mg/dL 10/25/2024 10:47 PM EDT [facility] Phosphorus 5.9(H) 2.1 - 4.7 mg/dL 10/25/2024 10:47 PM EDT [facility] Albumin 3.5 3.5 - 5.7 g/dL 10/25/2024 10:47 PM T [facility] Osmolality, Calculated 307(H) 278 - 305 mOsm/kg 10/25/2024 10:47 PM EDT [facility] EGFR 19 10/25/2024 10:47 PM T [facility] Comment:As of 2021, [...] ORDERABLES F inal Result Performing Organization Address City/[facility]/ZIP Co de Phone Number [facility] [address] [facility] * (ABNORMAL) APTT, NO ANTICOAGULANT (10/25/2024 10:17 PM EDT) aPTT 41.7(H) 25.5 - 35.0 seconds 10/25/2024 10:36 PM EDT [facility] Plasma 10/25/2024 10:1 7 PM EDT 10/25/2024 10:17 PM EDT Leandra Og MD LAB BLOOD ORDERABLES F inal Result Performing Organization Address City/[facility]/ZIP Co de Phone Number [facility] [address] [facility] * (ABNORMAL) Protime-INR (10/25/2024 10:17 PM EDT) Protime 21.7(H) 12.1 - 15.1 seconds 10/25/2024 10:35 PM EDT [facility] INR 1.8(H) 0.9 - 1.1 10/25/2024 10:35 PM EDT [facility] Comment: RECOMMENDED THERAPEUTIC RANGES USING INR : Stable oral anticoagulant therapy: 2.0 - 3.0 Mechanical prosthetic heart valve: 2.5 - 3.5 Recurrent acute myocardial infarction: 2.5 - 3.5 Plasma 10/25/2024 10:1 7 PM EDT 10/25/2024 10:17 PM EDT us Leandra Og MD LAB BLOOD ORDERABLES F inal Result [facility] [address] [place] [address], [facility] * (ABNORMAL) Differential (10/25/2024 10:17 PM EDT) Differential Comments See Note 10/25/2024 10:54 PM EDT [facility] Comment: _Platelets Appear Decreased _Platelet Morphology Normal Scan Result PERFORMED 10/25/2024 10:54 PM EDT [facility] Neutrophils Relative 79.8 40.0 - 80.0 % 10/25/2024 10:54 PM EDT [facility] Lymphocytes Relative 9.6(L) 15.0 - 45.0 % 10/25/2024 10:54 PM EDT [facility] Monocytes Relative 8.9 0.0 - 12.0 % 10/25/2024 10:54 PM EDT [facility] Eosinophils Relative 1.3 0.0 - 8.0 % 10/25/2024 10:54 PM EDT [facility] Basophils Relative 0.4 0.0 - 1.0 % 10/25/2024 10:54 PM EDT [facility] nRBC 0 0 - 0 /100 WBC 10/25/2024 10:54 PM EDT [facility] Neutrophils Absolute 4,948 1,520 - 8,640 /uL 10/25/2024 10:54 PM EDT [facility] Lymphocytes Absolute 595 570 - 4,860 /uL 10/25/2024 10:54 PM EDT [facility] Monocytes Absolute 552 0 - 1,296 /uL 10/25/2024 10:54 PM EDT [facility] Eosinophils Absolute 81 0 - 864 /uL 10/25/2024 10:54 PM EDT [facility] Basophils Absolute 25 0 - 108 /uL 10/25/2024 10:54 PM EDT [facility] PLT Morphology Platelet morphology appears normal 10/25/2024 10:54 PM EDT [facility] Whole Blood 10/25/2024 10:1 7 PM EDT 10/25/2024 10:17 PM EDT us Leandra Og MD LAB BLOOD ORDERABLES F inal Result [facility] [address] [place] [address], [facility] * (ABNORMAL) CBC (10/25/2024 10:17 PM EDT) WBC 6.2 3.8 - 10.8 10E3/uL 10/25/2024 10:54 PM EDT [facility] RBC 2.40(L) 4.20 - 5.80 10E6/uL 10/25/2024 10:54 PM EDT [facility] Hemoglobin 8.3(L) 13.2 - 17.1 g/dL 10/25/2024 10:54 PM EDT [facility] Hematocrit 23.7(L) 38.5 - 50.0 % 10/25/2024 10:54 PM EDT [facility] MCV 98.9 80.0 - 100.0 fL 10/25/2024 10:54 PM EDT [facility] MCH 34.6(H) 27.0 - 33.0 pg 10/25/2024 10:54 PM EDT [facility] MCHC 35.0 32.0 - 36.0 g/dL 10/25/2024 10:54 PM EDT [facility] RDW 17.8(H) 11.0 - 15.0 % 10/25/2024 10:54 PM EDT [facility] Platelets 56(L) 140 - 400 10E3/uL 10/25/2024 10:54 PM EDT [facility] Comment: Specimen checked for clots. None detected. Slide Reviewed for PLT Clumps. None Seen. Platelet Estimate Decreased 10/25/2024 10:54 PM EDT [facility] MPV 8.1 7.5 - 11.5 fL 10/25/2024 10:54 PM EDT [facility] [facility] Whole Blood 10/25/2024 10:1 7 PM EDT 10/25/2024 10:17 PM EDT Narrative [facility] - 10/25/2024 10:54 PM EDT Peripheral blood smear was scanned per review criteria approved by the laboratory medical claims processor. Leandra Og MD LAB BLOOD ORDERABLES F inal Result Performing Organization Address [facility] Co de Phone Number [facility] [address] [place] [address], [facility] * Donor Specific Antibody (DSA) (10/25/2024 10:00 PM EDT) Pathologist [facility] AntiDonor Antibodies The request and specimen(s) for this test have been received and transported to the [facility] at [address] [place] [address]. [address] [facility] will report results directly to the client. 10/25/2024 10:20 PM EDT [facility] Comment:Testing performed by [facility], [facility], [address] [place] [address] [facility] report has been forwarded to the appropriate ordering location. Please refer to this report for patient results. Serum 10/25/2024 10:0 0 PM EDT 10/25/2024 10:20 PM EDT Leandra Og MD LAB BLOOD ORDERABLES F inal Result Performing Organization Address [facility] Co de Phone Number [facility] [address] [id number], [facility] * (ABNORMAL) Venous Blood Gas, Line/Syringe (10/25/2024 10:00 PM EDT) PH-Line Draw 7.38 7.32 - 7.42 10/25/2024 10:08 PM EDT [facility] PCO2-Line Draw 33(L) 41 - 51 mm Hg 10/25/2024 10:08 PM EDT [facility] PO2-Line Draw 33 25 - 40 mm Hg 10/25/2024 10:08 PM EDT [facility] HCO3-Line Draw 20(L) 24 - 28 mmol/L 10/25/2024 10:08 PM EDT [facility] CO2 Content-Line Draw 21(L) 25 - 29 mmol/L 10/25/2024 10:08 PM EDT [facility] Base Excess-Line Draw -5.0(L) -2.0 - 3.0 mmol/L 10/25/2024 10:08 PM EDT [facility] %HBO2-Line Draw 53.8 40.0 - 70.0 % 10/25/2024 10:08 PM EDT [facility] Carboxyhgb-Ludivina e Draw 1.9 % 10/25/2024 10:08 PM EDT [facility] Comment: CARBOXYHEMOGLOBIN (CO) REFERENCE RANGES: Non-Smokers: <2 % Smokers: <8 % TOXIC: >20 % Methemoglobin- Line Draw 0.2 0.0 - 1.5 % 10/25/2024 10:08 PM EDT [facility] Reduced Hemoglobin-Ludivina e Draw 44.1(H) 0.0 - 5.0 % 10/25/2024 10:08 PM EDT [facility] Venous, Line Draw 10/25/2024 10:00 PM EDT 10/25/2024 10:04 PM EDT us Leandra Og MD LAB BLOOD ORDERABLES F inal Result [facility] [address] * (ABNORMAL) POC Glucose Monitoring Device (10/25/2024 9:56 PM EDT) POC Glucose Monitoring Device 103(H) 70 - 100 mg/dL 10/25/2024 9:58 PM EDT [facility] Blood 10/25/2024 9:56 PM EDT 10/25/2024 9:57 PM EDT Harvey Domínguez III, MD POINT OF CARE TEST ORDERABLES Final Result [facility] [address] * ECG 12 lead (MUSE) (10/25/2024 9:34 PM EDT) 10/25/2024 9:34 PM EDT Narrative MUSE - 10/27/2024 10:08 AM EDT Ventricular Rate: 97 BPM Atrial Rate: 86 BPM QRS Duration: 106 ms QT: 532 ms QTc: 675 ms P [place]: 38 degrees R [place]: -29 degrees T [place]: 32 degrees Diagnosis Line: Critical Test Result: Long QTc , AV Block ^ SINUS RHYTHM WITH PREMATURE VENTRICULAR COMPLEXES ^ PROLONGED QT ^ NONSPECIFIC ST AND T WAVE CHANGES ^ ABNORMAL ECG ^ ^ Confirmed by MD HA, NOAHYAKady ([id number]) on 10/27/2024 10:08:26 AM Leandra Og MD ECG ORDERABLES Final Result Performing Organization Address City/[facility]/ZIP Co de Phone Number MUSE * Hepatitis C RNA, Quant Reflex to Genotyp (10/25/2024 8:18 PM EDT) Pathologist [facility] International Units Not Detected IU/mL 10/27/2024 11:03 AM EDT [facility] Comment:Test methodology for HCV RNA quantification is an FDA-approved nucleic acid amplification assay. The Lower Limit of Quantitation (LLOQ) is 15 IU/mL. The linear range of the assay is 15-100,000,000 IU/mL. The Limit of Detection (LoD) is 12.0 IU/mL for EDTA plasma. The reference range is Not Detected. IU log10 See Note log 10 IU/mL 10/27/2024 11:03 AM EDT [facility] Comment:HCV RNA not detected . Plasma 10/25/2024 8:18 PM EDT 10/25/2024 10:27 PM EDT us Leandra Og MD LAB BLOOD ORDERABLES F inal Result [facility] [address] [place] [address], [facility] * Urinalysis w/Rfl to Microscopic (10/25/2024 8:18 PM EDT) Color, UA Yellow Yellow,Straw 10/25/2024 10:38 PM EDT [facility] Clarity, UA Clear Clear 10/25/2024 10:38 PM EDT [facility] Specific [place], UA 1.010 1.005 - 1.035 10/25/2024 10:38 PM EDT [facility] pH, UA 6.0 5.0 - 8.0 10/25/2024 10:38 PM EDT [facility] Protein, UA Negative Negative mg/dL 10/25/2024 10:38 PM EDT [facility] Glucose, UA Negative Negative mg/dL 10/25/2024 10:38 PM EDT [facility] Ketones, UA Negative Negative mg/dL 10/25/2024 10:38 PM EDT [facility] Bilirubin, UA Negative Negative 10/25/2024 10:38 PM EDT [facility] Blood, UA Negative Negative 10/25/2024 10:38 PM EDT [facility] Nitrite, UA Negative Negative 10/25/2024 10:38 PM EDT [facility] Urobilinogen, UA <2.0 0.2 - 1.9 mg/dL 10/25/2024 10:38 PM EDT [facility] Leukocyte Esterase, UA Negative Negative 10/25/2024 10:38 PM EDT [facility] Urine 10/25/2024 8:18 PM EDT 10/25/2024 10:35 PM EDT [facility] - 10/25/2024 10:38 PM EDT Microscopic testing is not performed when the dipstick is negative for blood, leukocyte, protein and nitrite. us Leandra Og MD URINE ORDERABLES Final Result Performing Organization Address City/State/[facility] Co de Phone Number [facility] [address] * Toxoplasma gondii antibody, IgG (10/25/2024 8:18 PM EDT) Toxoplasma Gondii IgG <3.0 0.0 - 7.1 IU/mL 10/27/2024 7:55 AM EDT [facility] Comment: Negative <7.2 Equivocal 7.2 - 8.7 Positive >8.7 Serum 10/25/2024 8:18 PM EDT 10/27/2024 8:06 AM EDT Narrative [facility] - 10/27/2024 8:06 AM EDT PERFORMED AT: [address] [id number] HEAD WAITER: Bassam Khalil, PhD PHONE: [phone] Leandra Og MD LAB BLOOD ORDERABLES F inal Result [facility] [address] [facility] * Antibody Screen (10/25/2024 7:46 PM EDT) Antibody Screen Negative 10/25/2024 10:41 PM EDT [facility] Blood 10/25/2024 7:46 PM EDT 10/25/2024 9:54 PM EDT Narrative [facility] - 10/25/2024 10:44 PM EDT Testing performed by [facility] Transfusion Service Ben Blake MD BLOOD BANK TEST ORDERABLES Fi nal Result Performing Organization Address City/[facility]/ZIP Co de Phone Number [facility] [address] [facility] [address] * ABO/Rh (10/25/2024 7:46 PM EDT) Pathologist [facility] ABO Grouping O 10/25/2024 10:23 PM EDT [facility] Rh Type Positive 10/25/2024 10:23 PM EDT [facility] Blood 10/25/2024 7:46 PM EDT 10/25/2024 9:54 PM EDT Ben Blake MD BLOOD BANK TEST ORDERABLES Fi nal Result Performing Organization Address City/[facility]/ZIP Co de Phone Number [facility] [address] [place] [address]. [address] * (ABNORMAL) TEG-Standard Global Hemostasis (Rapid TEG with Heparin Effect, Contains a Baseline TEG) (10/25/2024 7:46 PM EDT) Citrated Kaolin Reaction Time (TEGHEPARINASE) 8.4 4.6 - 9.1 minutes 10/25/2024 10:49 PM EDT [facility] Citrated Rapid Teg Maximum Amplitude (TEGHEPARINASE) <40.0(L) 52.0 - 70.0 mm 10/25/2024 10:49 PM EDT [facility] Citrated Functional Fibrinogen Maximum Amplitude (TEGHEPARINASE) 6.7(L) 15.0 - 32.0 mm 10/25/2024 10:49 PM EDT [facility] Citrated Kaolin W/Heparinase Reaction Time (TEGHEPARINASE) 8.1 4.3 - 8.3 minutes 10/25/2024 10:49 PM EDT [facility] Citrated Kaolin K-Time (TEGHEPARINASE) 2.5(A) 0.8 - 2.1 minutes 10/25/2024 10:49 PM EDT [facility] Citrated Kaolin Angle (TEGHEPARINASE) 65.7(A) 63.0 - 78.0 degrees 10/25/2024 10:49 PM EDT [facility] Citrated Kaolin Maximum Amplitude (TEGHEPARINASE) <40.0(L) 52.0 - 69.0 mm 10/25/2024 10:49 PM EDT [facility] Citrated Functional Fibrinogen- Fibrinogen Level (TEGHEPARINASE) 159.5(L) 278.0 - 581.0 mg/dL 10/25/2024 10:49 PM EDT [facility] Whole Blood (Citrate) 10/25/2024 7:46 PM EDT 10/25/2024 10:15 PM EDT us Ben Blake MD LAB BLOOD ORDERABLES Final Re sult [facility] [address] [place] [address], [facility] documented in this encounter Visit Diagnoses Diagnosis Acute kidney injury superimposed on CKD ([facility])- Primary Prophylactic antibiotic Encounter for long-term (current) use of antibiotics Prolonged QT interval Nonspecific abnormal electrocardiogram (ECG) (EKG) Immunosuppression ([facility]) Abdominal pain, unspecified abdominal location documented in [...] AM EDT 250 mLs 100 mL/hr Rate/Dose [facility] 10/26/2024 10:16 PM EDT 83.3 m L/hr [...] in sodium chloride 0.9% 100 mL IVPB ([id number]) 1 g, Intravenous, at 200 mL/hr, Every 6 hours scheduled (4 times per day), First dose on Sun10/26/24 at 0630, For 2 days, Dosage may need to be adjusted for renal dysfunction. Full dose is 1g IV q6h Use [id number] Adapter - Mix Thoroughly Before Administration New [...] Once underlying shock sufficiently improved, defined as kon-buwymfmispj-ON-presso r requirement ? 0.2 mcg/kg/min (norepinephrine equivalent) [...] Eyes, 2 times daily, First dose on [place] 10/26/24 at 1230 Given 10/31/2024 10:29 AM EDT Given 10/27/2024 8:46 PM EDT Given 10/27/2024 8:54 AM EDT famotidine (PF) (PEPCID) injection 20 mg 20 mg, Intravenous, Every 12 hours scheduled (2 times per day), First dose on [place] 10/26/24 at 0900 Given 10/27/2024 9:10 AM EDT 20 mg Given 10/26/2024 7:59 PM EDT 20 mg Given 10/26/2024 9:20 AM EDT 20 mg FentaNYL (SUBLIMAZE) 2500 mcg (10 mcg/mL) in NSS 250 mL IV infusion Intravenous, at 0-20 mL/hr, Continuous, Starting on [place] 10/26/24 at 0630, If the patient is [...] 6:48 PM EDT 1 mg HYDROmorphone (DILAUDID) SERVICE ADMINISTRATOR 6 mg/30 mL syringe *Standard Conc* Intravenous, Continuous, Starting on Sun10/27/24 at 1730, HIGH ALERT MEDICATION New Syringe/Cartridge 10/28/2024 3:59 AM EDT New Syringe/Cartridge 10/27/2024 7:09 PM EDT HYDROmorphone (DILAUDID) SERVICE ADMINISTRATOR 6 mg/30 mL syringe *Standard Conc* Intravenous, [...] in sodium chloride 0.9 % 100 mL [id number] IVPB 50 mg, Intravenous, at 100 mL/hr, Every 24 hours, First dose on Sun10/27/24 at 1400, PROTECT FROM LIGHT FLUSH LINE w/NSS PRIOR TO ADMINISTRATION Use [id number] Adapter - Mix Thoroughly Before Administration Rate/Dose [...] paralyzed: Do not titrate - follow policy [id number]. Start infusion if unable to maintain goal [...] documented as of this encounter Care Teams Mechanical Integrity Specialist Relationship Specialty Start Date End Date Enedina Mcguire NP [address] [place] [address] PCP - General Internal Medicine 10/05/24 Alicia Pantoja, RN Txp Post Coordinator Transplant Hepatology 10/28/24 documented as of this encounter
--- OUTSIDE RECORDS SUMMARY | 2024-10-25 22:30 | XMS_ITS | Encounter Summary ---
Author Organization [facility] Address [address] [place] [id number] Care Team Providers Care Phytopathology Teacher Name Role Phone Enedina Mcguire NP Primary Care Provider [phone] Source Comments This information has been disclosed [...] release of HIV test results or diagnoses. [id number] Reason for Visit * Auth/Cert (Routine) Specialty Diagnoses / Procedures Referred By Shane hernadez Referred To Contact Surgical Intensive Care Diagnoses Liver transplant recipient (CMS-HCC) cirrhosis and CKD Procedures LIVER-KIDNEY TRANSPLANT [facility] SICU [address] [place] [address] Phone: tel: Referral ID Status Reason Start Date Expiration Date Visits Re quested Visits Authorized [id number] 1 1 Encounter Details Date Type Department Care Team (Late st Contact Info) Description 10/25/2024 10:30 PM EDT - 10/26/2024 6:12 AM EDT Surgery [facility] PERIOP [address] [place] [address] Semaj Mcnair III, MD [address] [facility] [address] [place] [address] LIVER TRANSPLANT Surgery Details Date/Time [...] the past 12 months has th e Rated People, gas, oil, or water [employer] threatened to shut off services in your [...] Plata MD - 11/02/2024 2:04 PM EDT [facility] Liver Transplant Surgical Service Inpatient Discharge Summary Patient: Blair Gilbert : 1985 CSN: [id number] Date of Admission: 10/25/2024 Date of Discharge: [...] Case IDs Date Procedure Surgeon Location Status [id number] 10/25/24 LIVER TRANSPLANT Semaj Mcnair III, MD OR Comp [id number] 10/27/24 Donor Kidney Transplant , Back Bench [...] EXAM: US ABDOMEN LIMITED EXAM: US DUPLEX VFL-DHWEVG-CUFMXLH COMPLETE INDICATION: Post-op liver transplant COMPARISON: None [...] visualized secondary to poor acoustic windows. The northway right kidney measures 11.6 cm in length. [...] 30 tablet Refills: 0 naloxone 4 mg/actuation Falun Commonly known as: NARCAN Apply 1 spray [...] Your Medications These medications were sent to [facility] NAA Baum - [address] [facility] Mya 105Mal Deya Roque [address] mycophenolate 250 mg capsule tacrolimus 1 MG capsule These medications were sent to [facility] [address] [place] [address] Hours: Sunday - Sunday: 8:00AM - 6:00PM [...] Case IDs Date Procedure Surgeon Location Status [id number] 10/25/24 LIVER TRANSPLANT Semaj Mcnair III, MD OR Comp [id number] 10/27/24 Donor Kidney Transplant , Back Bench [...] discharge. NEURO/PAIN - Patient placed on Dilaudid CONCRETE PAVING SUPERVISOR once extubated, then transitioned to multi-modal pain [...] Ureteral stentis scheduled for removal on 11/25 [facility] - PT/OT evaluated patient and recommended Home PT/OT, outpatient PT/OT only available. ENDO - A1C is 5.0. Pt was not on diabetic regimen prior to arrival. Patient developed steroid-induced hyperglycemia 2/2 steroid regimen. Discharged home on the following regimen: HDSSI. Patient met w/ parent educator prior to discharge. HEME - Post-operatively, [...] Patient and family received post-transplant education from sales marketing coordinator as well as medication teaching [...] Department Center 11/04/2024 8:40 AM LTRA SURGERY, [facility] LTRA HOX HOX 11/04/2024 10:10 AM LTRA HEPATORENAL HOX LTRA HOX HOX 11/25/2024 9:00 AM NAA Merida [facility] URO MAB MAB 12/02/2024 2:00 PM Bossman Huffman MD [facility] MARIANGEL MAB MAB 02/25/2025 10:50 AM Bruno Gonzalez MD KTSP HOX HOX Kenyetta Hartman, MS-4 [facility] SHAY PLATA MD 11/02/2024 12:50 [...] up appointments. Diet: Regular diet Drain/Dressing/Wound Care: [place] will be removed in clinic approximately 3-4 [...] kept under 2 gm/day. Please discuss withyour brownfield program coordinator if you have any question about appropriate dose to take. Other Instructions: Call post-liver transplant clinic with questions [phone] or call [facility] at [phone] and ask for the liver sales marketing coordinator microelectronics assembler if you experience any of the following: [...] Department Center 11/04/2024 8:40 AM LTRA SURGERY, [facility] LTRA HOX HOX 11/04/2024 10:10 AM LTRA HEPATORENAL HOX LTRA HOX HOX 11/25/2024 9:00 AM NAA Merida [facility] URO MAB MAB 12/02/2024 2:00 PM Bossman Huffman MD [facility] MARIANGEL MAB MAB 02/25/2025 10:50 [...] AM EDT 10/30/2024 naloxone (NARCAN) 4 mg/actuation Falun Apply 1 spray in one nostril if [...] tacrolimus and mycophenolate which were dispensed through [facility] per insurance requirements. Patient's confirms [...] Expected caregiver involvement?: is primary med campaign marketing manager Need for additional education in clinic?: routine reinforcement only Future medications to be obtained from, if known (select one): Tac/MMF to be filled from [facility] Financial concerns (if any): no Discharge Medication List as of 11/02/2024 5:17 PM START taking these medications Details acetaminophen (TYLENOL) 325 MG tablet Take 3 tablets (975 mg total) by mouth every 8 hours., Starting 10/27/2024, Normal, Disp-200 tablet, R-0 alcohol swabs PadM Use as instructed., Normal, Disp-200 each, R-1 blood sugar diagnostic (GLUCOSE BLOOD) [facility] Use to test blood sugar up to 4 times a day., Normal, Disp-100 strip, R-11 blood-glucose meter (TRUE METRIX GLUCOSE METER) [facility] Use to test blood sugar [...] lancets (ACCU-CHEK SOFTCLIX LANCETS) [facility] Use to test blood sugar [...] Disp-30 tablet, R-0 naloxone (NARCAN) 4 mg/actuation Falun Apply 1 spray in one nostril if [...] Comments: Reason for Stopping: Eduardo Gamino, Pharm.D., [facility] Solid [facility] Transplant Clinical Specialist Contact via [email or web address] Secure Chat * Froylan Hendrickson MD - 11/01/2024 8:04 AM EDT Liver Transplant Surgery Progress Note Name: Blair Gilbert CSN: [id number] Date: 11/01/2024 8:06 AM OR Date: 10/25/2024 [...] at 10/31/2024 4:38 PM EDT US Duplex Dxd-Utj-Qanwjwp Comp Result Date: 10/31/2024 IMPRESSION: RIGHT UPPER [...] 10/25/2024 - 10/27/2024. Plan: Liver transplant recipient ([facility]) [Z94.4] Neuro: - Multimodal pain control: [...] 3:24 PM EDT TXP - Follow Up [facility] Medical Nutrition Therapy Transplant Brief Note Diet Order/Nutrition Support: Diet/Nutrition Orders Diet Regular(7) high calorie 3000 kcal a day Frequency: Effective Now Number of Occurrences: Until Specified Order Questions: Additional restrictions: high calorie 3000 kcal a day Suicide/Behavior Risk Modification? No Dietary nutrition supplements Frequency: TID Number of Occurrences: Until Specified Order Questions: Select Supplement: Boost VHC- very high calorie protein supplement ([facility] only) Pertinent Information: Pt seen for [...] Based on DBW of 93.1 kg Kcals/day: 1732-3932 (25-30 kcals/kg) Protein g/day: 140-190 (1.5-2.0 g/kg) [...] Dietitian - Solid Organ Transplant Contact via [email or web address] Chat * Keon Dobson - 10/31/2024 2:35 PM EDT [facility] Spiritual Care Volunteer Visit PATIENT NAME: Blair Gilbert ROOM:8025/U8025 Congregational Affiliation:Jew Blair Gilbert was visited by a volunteer today. No needs requiring a visit from a staff burnisher and bumper were expressed at that time. Care Provided: Communion, Prayer/ blessing Please page our service at [phone] as needs arise for patient and/or family. Fr Dean Dobson Jew burnisher and bumper Spiritual Care Dept * Brittany Horne PT [...] issued by OT: Long-handled sponge, Sock aid, Customer Service Professional, Other (comment) Equipment issued by OT comment: leg park worker Assessment Assessment: Decreased ADL status, Decreased IADLs, [...] IADL task (Goal met and continued 10/31) Fdc Goal : Pt will complete bathing assessment and transfer snf goal to be met in: 2 weeks [...] Hypertension Other hyperlipidemia 07/26/2024 Renal cell carcinoma ([facility]) Thrombocytopenia ([facility]) Thyroid disease Past Surgical History Past Surgical [...] Patient Active Problem List Diagnosis Decompensated cirrhosis ([facility]) Acute kidney injury superimposed on CKD ([facility]) Alcohol use disorder Metabolic encephalopathy Hypertension Other hyperlipidemia Thrombocytopenia ([facility]) Renal mass, left Abdominal pain Hypokalemia CKD (chronic kidney disease) stage 4, GFR 15-29 ml/min ([facility]) Metabolic acidosis with normal anion gap and bicarbonate losses GERD (gastroesophageal reflux disease) Hypothyroidism Itching Anemia BRBPR (bright red blood per rectum) SBP (spontaneous bacterial peritonitis) ([facility]) C Diff Diarrhea C. [...] 0659 10/31/24 07 - 11/01/24 0659 Shift 3082-2215 3926-8913 8676-4293 24 Hour Total 3197-0837 1847-6470 9203-8594 24 Hour Total INTAKE P.O. 240 240 P.O. 240 240 Shift Total(mL/kg) 240(1.9) 240(1.9) OUTPUT Urine(mL/kg/hr) 1850(1.8) 600(0.6) 600(0.6) 3050(1) 350 350 Urine 800 438 385 4898 350 350 Urine Occurrence 2 x 2 [...] with further concerns Lavell Kramer MD 10/31/[phone] * Priti Geiger CNP - 10/31/2024 10:06 AM EDT Liver Transplant Surgery Progress Note Name: Blair Gilbert CSN: [id number] Date: 10/31/2024 10:06 AM OR Date: 10/25/2024 [...] 10/28/24 1109 LACTATE 0.3* Imaging US Duplex Eyy-Sah-Xmlqwxp Comp Result Date: 10/28/2024 IMPRESSION: ABDOMINAL ULTRASOUND [...] 10/25/2024 - 10/27/2024. Plan: Liver transplant recipient ([facility]) [Z94.4] Neuro: - Multimodal pain control: [...] Transplant Nephrology Progress Note Patient: Blair Gilbert [id number] 8025/[id number] Date of Admit: 10/25/2024. 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 Lauren Santos, DNP, ADMITTING OFFICE ESCORT, RECYCLING SPECIALIST- Transplant Nephrology [phone] Preferred contact: secure chat The HPI, ROS, [...] 10/30/24 0659 10/30/24699 - 10/31/24 0659 Shift 5500-9188 6108-7299 1923-4154 24 Hour Total 3632-1336 9795-8787 4014-4990 24 Hour Total INTAKE P.O. 240 240 480 P.O. 240 240 480 IV Piggyback 87.2 87.2 Volume (mL) (micafungin (MYCAMINE) 50 mg in sodium chloride 0.9 % 100 mL Wgqt9Fqe IVPB) 87.2 87.2 Shift Total(mL/kg) 240(2) 327.2(2.7) 567.2(4.4) OUTPUT Urine(mL/kg/hr) 600(0.6) 1175(1.2) 450(0.4) 2225(0.7) 550 550 Output (mL) (IUC (Berkowitz) Triple-lumen (3-Way) 18 Fr.) 600 8559 303 7121 550 550 Drains 175 245 100 520 [...] month of prophylaxis Lavell Kramer MD 10/30/[phone] * Priti Geiger CNP - 10/30/2024 10:36 AM EDT Liver Transplant Surgery Progress Note Name: Blair Gilbert CSN: [id number] Date: 10/30/2024 10:37 AM OR Date: 10/25/2024 [...] 1109 LACTATE 0.5 0.3* Imaging US Duplex Grj-Nff-Xkzjngj Comp Result Date: 10/28/2024 IMPRESSION: ABDOMINAL ULTRASOUND [...] 10/25/2024 - 10/27/2024. Plan: Liver transplant recipient ([facility]) [Z94.4] Neuro: - Multimodal pain control: [...] Transplant Nephrology Progress Note Patient: Blair Gilbert [id number] 8025/U8025 Date of Admit: 10/25/2024. 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 Lauren Santos, DNP, ADMITTING OFFICE ESCORT, RECYCLING SPECIALIST- Transplant Nephrology [phone] Preferred contact: secure chat The HPI, ROS, [...] EDT Pt seen, examined, and discussed with DIRECTOR OF INSTRUMENTAL MUSIC on 10/30/2024. reviewed the chart including the labs and imaging studies. My additional comments below. 39 y.o. 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 S/p SLK 10/25-10/26 Good uop Mild MA, will monitor for now for needs of po bicarb Aaron Gonzalez MD, MEd, FASN * Ben Weiss, RD - 10/29/2024 3:36 PM EDT TXP - Follow Up [facility] Medical Nutrition Therapy Follow-Up Diet Order/Nutrition Support: [...] I/O: +23.3L net volume. Last BM Date: (travel pta). Admit Weight: 270 lb (122.5 kg) Current [...] Based on DBW of 93.1 kg Kcals/day: 0328-5418 (25-30 kcals/kg) Protein g/day: 140-190 (1.5-2.0 g/kg) [...] transplant recipient (CMS-HCC) [Z94.4] Date: 10/29/2024 Room: [place] [address] [address] Reviewed Pertinent hospital course: Yes Hospital Course [...] with functional mobility at: 10 or less Contract Sheltered Workshop Supervisor Goal : Pt will ambulate 250' [...] hyperlipidemia 07/26/2024 Renal cell carcinoma (CMS-HCC) Thrombocytopenia ([facility]) Thyroid disease Past Surgical History Past Surgical [...] Patient Active Problem List Diagnosis Decompensated cirrhosis ([facility]) Acute kidney injury superimposed on CKD ([facility]) Alcohol use disorder Metabolic encephalopathy Hypertension Other [...] III, MD Admission Diagnosis: Liver transplant recipient ([facility]) [Z94.4] Date: 10/29/2024 Room: [place] [address] [address] Reviewed Pertinent hospital course: Yes Hospital Course [...] Intervention(s): Ambulation/increased activity;Repositioned Therapist reported pain to: room service associate Oxygen Supplemental Oxygen Supplemental Oxygen: None (Room [...] distance ambulation in prep for IADL task Contract Sheltered Workshop Supervisor Goal : Pt will complete bathing assessment and transfer snf goal to be met in: 2 weeks [...] Patient Active Problem List Diagnosis Decompensated cirrhosis ([facility]) Acute kidney injury superimposed on CKD ([facility]) Alcohol use disorder Metabolic encephalopathy Hypertension Other hyperlipidemia Thrombocytopenia ([facility]) Renal mass, left Abdominal [...] Transplant Nephrology Progress Note Patient: Blair Gilbert [id number] SICU-28/USIC-28 Date of Admit: 10/25/2024. 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 Lauren Santos, SAMSON, ADMITTING OFFICE ESCORT, RECYCLING SPECIALIST- Transplant Nephrology [phone] Preferred contact: secure chat The HPI, ROS, [...] Surgery Progress Note Name: Blair Gilbert CSN: [id number] Date: 10/29/2024 10:08 AM OR Date: 10/25/2024 [...] LACTATE 0.4* 0.5 0.3* Imaging US Duplex Hoy-Gfn-Toojtve Comp Result Date: 10/28/2024 IMPRESSION: ABDOMINAL ULTRASOUND [...] at 10/27/2024 10:38 AM EDT US Duplex Hgk-Zub-Cjofdyh Comp Result Date: 10/27/2024 IMPRESSION: RIGHT UPPER [...] 10/25/2024 - 10/27/2024. Plan: Liver transplant recipient ([facility]) [Z94.4] Neuro: - Multimodal pain control: [...] Date 10/28/24699 - 10/29/2465810/29/24699 - 10/30/24658 Shift 7142-3762 4301-7351 9005-4859 24 Hour Total 0814-0250 2951-5313 9248-9969 24 Hour Total INTAKE P.O. 240 0 [...] IV infusion) 253.9 374.7 775.6 1404.2 Blood 4507 750 5639 Albumin 750 750 Volume (Transfuse RBC Transfusion Rate: Per dept routine) 310 310 Volume (Transfuse RBC Transfusion Rate: Per dept routine) 271 271 IV Piggyback 918.4 686 45 1249.4 Volume (mL) (micafungin (MYCAMINE) 50 mg in sodium chloride 0.9 % 100 mL Qoji0Kfh IVPB) 99.9 99.9 Volume (mL) (albumin human [...] month of prophylaxis Lavell Kramer MD 10/29/[phone] * John Moreno MD - 10/29/2024 6:47 AM EDT SURGICAL ICU PROGRESS NOTE 10/29/2024 6:47 AM Name: Blair Gilbert [facility]: [id number] HPI: Blair Gilbert is a 39 y.o. [...] to 4 times a day. DEXCOM G7 FOREST AIDE Misc Use reader as directed. DEXCOM G7 [...] lancets (ACCU-CHEK SOFTCLIX LANCETS) [facility] Use to test blood sugar up to 4 times a day. methocarbamoL (ROBAXIN) 500 MG tablet Take 1 tablet (500 mg total) by mouth 3 times a day. naloxone (NARCAN) 4 mg/actuation Falun Apply 1 spray in one nostril if [...] 37 37 35 PO2ART 245* 182* 92 QML3LLZ 22 21* 21* BEART -4.2* -4.8* -4.6* [...] at baseline or with provocation, shows no zyldw-bi-qvbq atrial level shunt. - Pulmonary arteries: Systolic [...] Home pantoprazole 40mg daily, continue Last BM: SWATCH FOLDER - suppository today Bowel regimen: Miralax today, [...] results for input(s): TEGANGLE , TEGKTIME , TIJZCSWL36 , TEGMAXAMPL , TEGRTIME , CBMZ in [...] in sodium chloride 0.9 % 100 mL Ucbq5Amd IVPB 50 mg Every 24 hours 10/27/2024 -- Admin Instructions: PROTECT FROM LIGHT FLUSH LINE w/NSS PRIOR TO ADMINISTRATION Use Xvuf4Fkt Adapter - Mix Thoroughly Before Administration Route: [...] po robaxin, oxycodone PSYCHIATRIC Exam: Mood/affect appropriate Brath Agitation Sedation Scale: 0 Overall CAM-ICU : [...] instability DC today Arterial Line? R radial [place]- DC today Urinary Catheter? Berkowitz - Reason: [...] BID Continuous Infusions: HYDROmorphone 6 mg/30 mL CONCRETE PAVING SUPERVISOR norepinephrine 4 mcg/min (10/27/248) sodium chloride 0.45% [...] 0659 10/28/24 07 - 10/29/24 0659 Shift 5795-3659 1962-6964 8002-2837 24 Hour Total 8088-8101 4703-5989 3944-3628 24 Hour Total INTAKE P.O. 0 120 [...] in sodium chloride 0.9 % 100 mL Jbwy4Ure IVPB) 100 100 Volume (mL) (albumin human 5%) 126 126 Volume (mL) (potassium chloride (KCl)/Sterile water 50 mL 20 mEq/50 mL IVPB 20 mEq) 100 100 Volume (mL) (AMPicillin 1 g in sodium chloride 0.9% 100 mL IVPB (Huxf6Yrc)) 100.1 57 42.9 200 Volume (mL) (mycophenolate (CELLCEPT) 500 mg in dextrose 5% in water (D5W) 50 mL IVPB) 50 5.3 55.3 Shift Total(mL/kg) 2079.3(17) 1161(9.5) 787.3(6.4) 4027.6(32.9) OUTPUT Urine(mL/kg/hr) 2195(2.2) 1000(1) 900(0.9) 4095(1.4) 490 490 Urine 360 360 Output (mL) (IUC (Berkowitz) Triple-lumen (3-Way) 18 Fr.) 1835 9258 755 5911 490 490 Emesis/NG output 50 50 Drainage [...] month of prophylaxis Lavell Kramer MD 10/28/[phone] * Caron Santos CNP - 10/28/2024 9:00 AM EDT Images from the original note were not included. Transplant Nephrology Progress Note Patient: Blair Gilbert [id number] SICU-28/USIC- Date of Admit: 10/25/2024. 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 Lauren Santos, DNP, ADMITTING OFFICE ESCORT, RECYCLING SPECIALIST- Transplant Nephrology [phone] Preferred contact: secure chat The HPI, ROS, [...] EDT Pt seen, examined, and discussed with DIRECTOR OF INSTRUMENTAL MUSIC on 10/28/2024. reviewed the chart including the labs and imaging studies. My additional comments below. 39 y.o. 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.] at 10/27/2024 10:38 AM EDT US Duplex Xwi-Xgd-Zrcgbgn Comp Result Date: 10/27/2024 IMPRESSION: RIGHT UPPER [...] 10/25/2024 - 10/27/2024. Plan: Liver transplant recipient ([facility]) [Z94.4] Neuro: - Multimodal pain control: dilaudid CONCRETE PAVING SUPERVISOR, tylenol, robaxin. PRN dilaudid for breakthrough CV: [...] SICU SHAY PLATA MD, MS4 [facility] 11:05 AM 10/28/2024 Cosigned by Lydia [...] 10/28/2024 6:17 AM Name: Blair Gilbert CSN: [id number] HPI: Blair Gilbert is a 39 y.o. [...] to 4 times a day. DEXCOM G7 FOREST AIDE Misc Use reader as directed. DEXCOM G7 [...] times a day. naloxone (NARCAN) 4 mg/actuation Falun Apply 1 spray in one nostril if [...] Oral BID Continuous: HYDROmorphone 6 mg/30 mL CONCRETE PAVING SUPERVISOR insulin regular in 0.9 % sodium chloride [...] 37 37 35 PO2ART 245* 182* 92 BFN8TJG 22 21* 21* BEART -4.2* -4.8* -4.6* [...] at baseline or with provocation, shows no djokf-nf-mnjw atrial level shunt. - Pulmonary arteries: Systolic [...] while intubated,convert to PO today Last BM: SWATCH FOLDER Bowel regimen: Miralax today, hold senna til [...] ml IV Fluids: HYDROmorphone 6 mg/30 mL CONCRETE PAVING SUPERVISOR insulin regular in 0.9 % sodium chloride, [...] appropriate flows, no concerns - 3 day berkoiwtz - fl 10/30 - Makes urine at baseline - Has never required dialysis - Continue bekrowitz SKIN/MUSCULOSKELETAL Exam: Warm, dry; no significant edema [...] results for input(s): TEGANGLE , TEGKTIME , RIOMFUQN25 , TEGMAXAMPL , TEGRTIME , CBMZ in [...] in sodium chloride 0.9% 100 mL IVPB (Ldfk4Lfy) (Completed) 1 g Every 6 hours scheduled 10/26/2024 10/28/2024 Admin Instructions: Dosage may need to be adjusted for renal dysfunction. Full dose is 1g IV q6h Use Gwej1Uos Adapter - Mix Thoroughly Before Administration Notes to Pharmacy: On sales order coordinator estimated creatinine clearance is 35.9 mL/min (A) [...] in sodium chloride 0.9 % 100 mL Oqod4Vce IVPB 50 mg Every 24 hours 10/27/2024 -- Admin Instructions: PROTECT FROM LIGHT FLUSH LINE w/NSS PRIOR TO ADMINISTRATION Use Ksbb9Dln Adapter - Mix Thoroughly Before Administration Route: [...] R IJ Mac Arterial Line? R radial [place] Urinary Catheter? Berkowitz - Reason: Adequate I/O [...] the Caprini Risk Score of 10 and [facility] transplant protocol, I recommend discharging on [...] the patient as needed. Hillary Fernandes PharmD, [facility] Solid Organ Transplant Clinical Specialist Contact via [email or web address] Secure Chat Preferred O. [phone] * Chinedu Almeida RRT - 10/27/2024 1:10 [...] Yes MD Order No SBT No Yes [place] Coma Scale > 8 Yes Lab Results Component Value Date PHART 7.36 10/27/2024 PCO2 37 10/27/2024 PO2ART 245 (H) 10/27/2024 YHC3JVN 22 10/27/2024 BEART -4.2 (L) 10/27/2024 VNK6QZT 96.5 10/27/2024 F2TZHTOS 100 10/27/2024 Based on this SBT assessment [...] Surgery Progress Note Name: Blair Gilbert CSN: [id number] Date: 10/27/2024 11:40 AM OR Date: 10/25/2024 - 10/27/2024 Subjective: * Day of Surgery * Remains intubated in SICU Sedated but appropriately nods to questions No acute distress Objective: BP 100/48 Pulse 89 Temp 99 ??F (37.2 ??C) ([place]) Resp 9 Ht 6' 4 (1.93 m) [...] at 10/27/2024 10:38 AM EDT US Duplex Wkf-Fmw-Dnullfh Comp Result Date: 10/27/2024 IMPRESSION: RIGHT UPPER [...] 10/27/2024. Problem List[1] Plan: Liver transplant recipient ([facility]) [Z94.4] Neuro: - Propofol/fentanyl CV: - [...] DISPO: SICU KENYETTA HARTMAN, MS4 [facility] 11:40 AM 10/27/2024 [1] Patient Active Problem List Diagnosis Decompensated cirrhosis ([facility]) Acute kidney injury superimposed on CKD ([facility]) Alcohol use disorder Metabolic encephalopathy Hypertension Other hyperlipidemia Thrombocytopenia ([facility]) Renal mass, left Abdominal pain Hypokalemia CKD (chronic kidney disease) stage 4, GFR 15-29 ml/min ([facility]) Metabolic acidosis with normal anion gap and bicarbonate losses GERD (gastroesophageal reflux disease) Hypothyroidism Itching Anemia BRBPR (bright red blood per rectum) SBP (spontaneous bacterial peritonitis) ([facility]) C Diff Diarrhea C. [...] 10/27/2024 7:16 AM Name: Blair Gilbert CSN: [id number] HPI: Blair Gilbert is a 39 y.o. [...] times a day. naloxone (NARCAN) 4 mg/actuation Falun Apply 1 spray in one nostril if [...] 47* 36 37 PO2ART 127* 91 137* BMB9YLW 21* 22 20* BEART -5.4* -3.9* -6.4* [...] at baseline or with provocation, shows no xdzpx-ma-yvpi atrial level shunt. - Pulmonary arteries: Systolic [...] IV pantoprazole while intubated, NPO Last BM: SWATCH FOLDER Bowel regimen: Senna/Miralax when able Nausea: Zofran [...] 10/27/2024 0715 Gross per 24 hour Intake 67162.82 ml Output 7060 ml Net 6224.82 ml [...] results for input(s): TEGANGLE , TEGKTIME , MOBBTEET22 , TEGMAXAMPL , TEGRTIME , CBMZ in [...] in sodium chloride 0.9% 100 mL IVPB (Qnvg3Nid) 1 g Every 6 hours scheduled Admin Instructions: Dosage may need to be adjusted for renal dysfunction. Full dose is 1g IV q6h Use Ivvd1Aze Adapter - Mix Thoroughly Before Administration Notes to Pharmacy: On sales order coordinator estimated creatinine clearance is 35.9 mL/min (A) (based on SCr of 3.87 mg/dL (H)). 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 naloxone (NARCAN) 4 mg/actuation Falun Apply 1 spray in one nostril if [...] Low Risk (07/09/2024) Received from [facility] Overall Financial Resource Strain (CARDIA) Difficulty [...] Physical Activity: Unknown (07/14/2024) Received from [facility] Exercise Vital Sign Days of Exercise per Week: Patient unable to answer Minutes of Exercise per Session: Not on file Stress: Patient Unable To Answer (07/14/2024) Received from [facility] [place] of Occupational Health - Occupational Stress Questionnaire Feeling of Stress : Patient unable to answer Social Connections: Patient Unable To Answer (07/14/2024) Received from [facility] Social Connection and Isolation Panel [NHANES] [...] -- 5.4 ALBUMIN 3.2* 3.1* Invalid input(s): [facility] Other labs: Imaging Studies No results found. [...] SICU post-op. LEANDRA OG MD [facility] Liver Transplant Pager: [phone] 8:24 PM 10/25/2024 Cosigned by Semaj [...] Name: Blair Gilbert Date: 1985 Billing #: [id number] Date of Procedure: 10/25/2024 Diagnosis: End Stage Renal Disease Procedure: 1. Donor Kidney Transplant 2. Back Bench Preparation Donor Kidney 3. Baseline Kidney transplant biopsy 4. Insertion of Indwelling Stent 5. Removal of Perihepatic packing Surgeons * Flaquito Ba MD Meals On Wheels Driver MD Shayan Findings: Low Hockey stick incision [...] donor was ABO O and UNOS ID [id number], Match Run [id number] ([facility]). This donor was [...] then wanded with the lap detection assistant professor of geography. The incision was ex tented 2 inches [...] and closure. Flaquito Ba MD Transplant Surgeon scooping machine tender * Flaquito Ba MD - 10/27/2024 6:15 AM EDT TRANSPLANT KIDNEY with bile duct reconstruction Brief Op Note Blair Gilbert 10/27/2024 Pre-op Diagnosis: Acute kidney injury superimposed on CKD (CMS-HCC) [N17.9, N18.9] Post-op Diagnosis: same Procedure(s): TRANSPLANT KIDNEY Surgeon(s): MD Semaj Washington III, MD Anesthesia: General Endotracheal Staff: Bow Maker Machine Tender: Chinedu Quinn RN Scrub Person: ST Angela Fellow: Kemar Sahni MD 2nd Bow Maker Machine Tender: Marty Clark RN 3rd Bow Maker Machine Tender: Candis Mcdaniel RN FINDINGS Berkowitz 3 day Drains: Intraabdominal (perihepatic) UNOS ID [id number], Match Run [id number] Kid WIT 27 min Kid CIT 33 [...] (Berkowitz) Triple-lumen (3-Way) 18 Fr. (Active) Status Industry Drainage 10/26/241999 Collection Container Standard drainage bag [...] Washington III, MD Anesthesia: General Endotracheal Staff: Bow Maker Machine Tender: Chinedu Quinn RN Relief Bow Maker Machine Tender: Michela Amos RN Relief Scrub: Stephani Blake RN Scrub Person: ST Angela Fellow: Kemar Sahni MD 2nd Bow Maker Machine Tender: Marty Clark RN 3rd Bow Maker Machine Tender: Candis Mcdaniel RN Estimated Blood Loss: [...] (Berkowitz) Triple-lumen (3-Way) 18 Fr. (Active) Status Industry Drainage 10/26/241999 Collection Container Standard drainage bag [...] (Removed) Number of days: 24 [REMOVED] IUC (Berkowtiz) Temperature probe 16 Fr. (Removed) Number of days: 5 End to end choledochocholedochostomy Berkowitz 3 day Drains: 2 Intraabdominal (perihepatic) UNOS ID [id number], Match Run [id number] Donor: young DCD NRP Kid WIT 27 [...] MD - 10/27/2024 12:00 AM EDT [facility] PATIENT NAME: BLAIR GILBERT DATE OF : 1985 CSN: [id number] PHYSICIAN: Semaj Mcnair III, MD ADMIT DATE: 10/25/2024 DICTATED BY: Semaj Mcnair III, MD SURGERY DATE: 10/27/2024 OPERATIVE REPORT SURGEON: Semaj Mcnair III, MD WINDOWS ADMIN SURGEON: Kemar Sahni MD. PREOPERATIVE DIAGNOSIS: Open [...] were made hemostatic with the argon beam mail order sorter. We assessed the flows of the portal [...] a mucocele formation. We then performed a ceip-yp-kbfa choledochocholedochostomy in an end to end fashion [...] small umbilicalhernia that was closed with a zitajj-fq-kettw 0 PDS suture. At this point, we [...] complications. SEMAJ MCNAIR III, MD RCQ/AQ JOB#: [id number] * Semaj Mcnair III, MD - 10/26/2024 7:00 AM EDT Patient Name: Blair Gilbert Date: 1985 Billing #: [id number] Date of Procedure: 10/25/2024 - 10/26/2024 Diagnosis: Chronic Hepatic Failure without coma Procedure: 1. Orthotopic Liver Transplant 2. Back Bench Preparation Donor Liver 3. Temporary portocaval shunt 4. Perihepatic packing for control of hemorrhage 5. Placement of external choledochal stent 6. Temporary abdominal closure Attending surgeons: Semaj Mcnair III, MD Meals On Wheels Driver Surgeon(s): Sveta Judge MD Findings: Whole organ placed in piggyback fashion with suprahepatic cava of donor to common orifice of all three hepatic veins for IVC anastomosis. Donor main portal vein to recipient main portal vein. Donor common hepatic artery to recipient right hepatic artery. Temporary abdominal with perihepatic packingfor control of hemorrhage. Externalization of bile duct with 8 Macedonian pediatric feeding tube. Portal Flow Modulation No [...] This donor was ABO O and UNOSID [id number], Match Run [id number]. This was a 42-year-old donation after circulatory [...] After completion of the outflow anastomosis, a [place] clamp was placed across the donor suprahepatic [...] do a temporary abdominal closure. An 8 Macedonian pediatric feeding tube was brought through the [...] Sveta Alves III, MD Anesthesia: General Staff: Bow Maker Machine Tender: Mak Maher RN; Marty Clark RN Scrub Person: ST Angela Resident: Thuy Leon MD clinical applications manager: Jose Daniel Arana RRT Estimated Blood Loss: [...] Number of days: 5 Surgery Information: -UNOS#: [id number] -ABO: O to O -Recipient: SLK candidate [...] 1:19 PM EDTAssociated Order(s): IP CONSULT TO POLYSOMNOGRAPH TECH [facility] Transplant Discharge Education Note Assessment: Received referral [...] Gomez, MSN, RN, NPD- Diabetes Education Office [phone] Schedule: M-F 8:00am-4:30pm * Ben Weiss, RD - 10/27/2024 4:06 PM EDTAssociated Order(s): IP CONSULT TO NUTRITION SERVICES; IP CONSULT TO NUTRITION SERVICES TXP - Initial [facility] Medical Nutrition Therapy Reason(s) for Completion: Physician/Nursing [...] I/O: +23.2L net volume. Last BM Date: (SWATCH FOLDER). Admit Weight: 270 lb (122.5 kg) Current [...] Based on DBW of 93.1 kg Kcals/day: 4123-6519 (25-30 kcals/kg) Protein g/day: 140-190 (1.5-2.0 g/kg) [...] Dietitian - Solid Organ Transplant Contact via [email or web address] Chat * Lavell Kramer MD - 10/27/2024 11:09 AM EDTAssociated Order(s): INPATIENT CONSULT TO TRANSPLANT INFECTIOUS DISEASES Infectious Disease Consultation Patient: Blair Gilbert CSN: [id number] Assessment & Plan 39 y.o. M s/p [...] blood cx's if febrile Lavell Kramer MD [phone] Chief Complaint Long Qtc History of Present [...] Low Risk (07/09/2024) Received from [facility] Overall Financial Resource Strain (CARDIA) Difficulty [...] Physical Activity: Unknown (07/14/2024) Received from [facility] Exercise Vital Sign Days of Exercise per Week: Patient unable to answer Minutes of Exercise per Session: Not on file Stress: Patient Unable To Answer (07/14/2024) Received from [facility] [place] of Occupational Health - Occupational Stress Questionnaire Feeling of Stress : Patient unable to answer Social Connections: Patient Unable To Answer (07/14/2024) Received from [facility] Social Connection and Isolation Panel [NHANES] [...] to 4 times a day. DEXCOM G7 FOREST AIDE Misc Use reader as directed. DEXCOM G7 [...] times a day. naloxone (NARCAN) 4 mg/actuation Falun Apply 1 spray in one nostril if [...] CKD IIIb/IV: - Presumed s/t HRS - Slip Seat Coverer: Yovanny Curran at [facility] Allograft Function: S/p SLK 10/25- (kidney preemptive) [...] 10/27/2024 1500 Gross per 24 hour Intake 89496.28 ml Output 5950 ml Net 6403.28 ml Heme/Anemia: WBC: 5.8 Goal HgB 10-12 mg/dL Hgb: 7.5 Plt 50 Iron: 128 on 10/25/2024 Ferritin 623.2 on 10/25/2024 TIBC: SEE COMMENT on 10/25/2024 % Iron Saturation: SEE COMMENT on 10/25/2024 LturhvxN32: No results found for requested labs within [...] - Monitor renal function. No indications for BRAIN WAVE TECHNICIAN. Good UOP - Noted KT US WNL [...] preliminary until attending attestation. Lauren Santos, SAMSON, ADMITTING OFFICE ESCORT, RECYCLING SPECIALIST- Transplant Nephrology [phone] Preferred contact: secure chat [1] Allergies Allergen [...] Gonzalez MD, MEd, FASN * Marcellus Anup, MANAGER WOUND, CLIP RIVETER - 10/27/2024 10:21 AM EDT HEALTH Care Management/Social Work Assessment Patient Information Patient Name: Blair Gilbert Hospital Day: 2 Inpatient/Observation: Inpatient Admit Date: 10/25/2024 Admission Diagnosis: Liver transplant recipient ([facility]) [Z94.4] Attending provider: Semaj Mcnair III, MD PCP: Enedina Mcguire NP Home Pharmacy: [facility] [address] [place] [address] [address] [facility] [address] [facility] [address] Issues related to obtaining medications: N/A Payor Information Medical Insurance Coverage: Payor: [facility] / Plan: [facility] [...] History: 12 weeks of CD Treatement at [facility] Do you need Substance Abuse Treatment [...] resides with his spouse at their one carey home in [place]. 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 Patient's LNOK:Spouse, Abdiaziz Gilbert, Patient has no current or past history of suicidal/homicidal ideation. Patient has a history of mental health diagnoses, PTSD and Generalized Anxiety Disorder. Patient is connected with TransplantPsychiatrist and prescribed Prozac. Patient has a history of alcohol use and has completed 12 weeksof CD Treatment at [facility]. Spouse explained that he will complete a 6 month virtual program post transplant but could not recall the name of the program. Patient has no current tobacco use. No previous need or recommendation for home health care services and no previous placements at usp facility and/or inpatient rehab program. Patient has [...] as appropriate. NUBIA Escalera, RONALDO Phone Number: [phone] * John Moreno MD - 10/26/2024 3:41 AM EDT SURGICAL ICU CONSULT NOTE 10/26/2024 3:41 AM Name: Blair Gilbert [facility]: [id number] HPI: Blair Gilbert is a 39 y.o. [...] at 9:00 PM naloxone (NARCAN) 4 mg/actuation Falun Apply 1 spray in one nostril if [...] % 250 mL infusion 2.5 mcg/min (10/26/24 0330) insulin regular in 0.9 % sodium chloride [...] input(s): PHART , PCO2 , PO2ART , AFB8ZKR , BEART in the last 72 hours. [...] at baseline or with provocation, shows no wnsqd-nu-bjel atrial level shunt. - Pulmonary arteries: Systolic [...] IV pantoprazole while intubated, NPO Last BM: SWATCH FOLDER Bowel regimen: Senna/Miralax when able Nausea: Zofran PRN FLUID/ELECTROLYTES Recent Labs 10/25/24 2217 NA 137 K 2.1* CL 100 CO2 20* BUN 74* CREATININE 3.87* CALCIUM 9.3 PHOS 5.9* GLUCOSE 114* Intake/Output Summary (Last 24 hours) at 10/26/2024 0341 Last data filed at 10/26/2024 0326 Gross per 24 hour Intake 36414 ml Output 675 ml Net 79722 ml IV Fluids: EPINEPHrine (ADRENALIN) 10 mg [...] results for input(s): TEGANGLE , TEGKTIME , ZYMTHHJK35 , TEGMAXAMPL , TEGRTIME , CBMZ in [...] in sodium chloride 0.9% 100 mL IVPB (Eciq6Njk) 2 g Every 6 hours 10/26/2024 -- Admin Instructions: Use Gveq8Kag Adapter - Mix Thoroughly Before Administration Notes to Pharmacy: On sales order coordinator estimated creatinine clearance is 35.9 mL/min (A) (based on SCr of 3.87 mg/dL (H)). Route: Intravenous AMPicillin 2 g in sodium chloride 0.9% 100 mL IVPB (Llbp2Tod) 2 g Once 10/26/2024 -- Admin Instructions: Use Kebf2Glz Adapter - Mix Thoroughly Before Administration Notes to Pharmacy: On sales order coordinator estimated creatinine clearance is 35.9 mL/min (A) (based on SCr of 3.87 mg/dL (H)). Route: Intravenous cefTRIAXone (ROCEPHIN) 2 g in sodium chloride 0.9 % 100 mL Dnsk5Bvz (Completed) 2 g Once 10/25/2024 10/26/2024 Admin Instructions: Use Sbed1Wlg Adapter - Mix Thoroughly Before Administration Route: [...] R IJ Mac Arterial Line? R radial [place] Urinary Catheter? Berkowitz - Reason: Adequate I/O [...] 47 (H) 10/26/2024 PO2ART 127 (H) 10/26/2024 DQW9FSL 21 (L) 10/26/2024 BEART -5.4 (L) 10/26/2024 NPE4LEG 94.6 (L) 10/26/2024 D7MIEXJZ 98 10/26/2024 P:F ratio = 363 CARDIOVASCULAR: [...] Acute Care Surgery, and Surgical Critical Care [facility] Academic Office [phone] For Transfers, call [phone] documented in this encounter Nursing Notes * [...] Progressing * Care Coordination - NUBIA Escalera, CLIP RIVETER - 10/31/2024 11:34 AM EDT [facility] Case Management/Social Work Department Progress Note Patient Information Patient Name: Blair Gilbetr Hospital day: 6 Inpatient/Observation: Inpatient Level of Care: Transplant Admit date: 10/25/2024 Admission diagnosis: Liver transplant recipient (CMS-HCC) [Z94.4] PMH: has a past medical history of Alcoholic cirrhosis of liver (CMS-HCC), Esophageal varices (CMS-HCC), Hepatorenal syndrome (CMS-HCC), Hypertension, Other hyperlipidemia (07/26/2024), Renal cell carcinoma (CMS-HCC), Thrombocytopenia ([facility]), and Thyroid disease. PCP: Enedina Mcguire NP Home Pharmacy: [facility] [address] [place] [address] [facility] [address] [place] [address] [facility] [place] [address] [facility] [address] [place] [address] Medical Insurance Coverage: Payor: [employer] [...] that there were no accepting HHC agencies([facility], [facility], [facility]) and patient would need to outpatient for PT/OT and labs. Discharge Plan Anticipated discharge plan: Home with HHC vs Home with outpatient Anticipated discharge date: 11/01 CM/SW will continue to follow and remain available for discharge planning needs. NUBIA Escalera, RONALDO Cell [phone] * Plan of Care - Paulette Flannery [...] - 10/29/2024 1:53 PM EDT [facility] Case Management/Social Work Department Progress [...] Enedina Mcguire NP Home Pharmacy: [facility] [address] [place] [phone] [place] [address] [facility] [address] [facility] [address] [facility] [place] - [place] [address] [place] [address] Medical Insurance Coverage: Payor: [employer] [facility] [facility] [...] SW submitted blanket HHC referral to [facility] [employer], [employer], [facility], and [facility]. Awaiting responses. SW to followpending [...] available for discharge planning needs. NUBIA Rhodes, CLIP RIVETER Inpatient Humanities Division Chair/Care Coordination [phone] * Plan of Care - Soco Yap [...] - 10/28/2024 2:29 PM EDT [facility] Case Management/Social Work Department Progress Note Patient Information Patient Name: Blair Gilbert Hospital day: 3 Inpatient/Observation: Inpatient Level of Care: Transplant Admit date: 10/25/2024 Admission diagnosis: Liver transplant recipient ([facility]) [Z94.4] PMH: has a past medical history of Alcoholic cirrhosis of liver (CMS-HCC), Esophageal varices (CMS-HCC), Hepatorenal syndrome (CMS-HCC), Hypertension, Other hyperlipidemia (07/26/2024), Renal cell carcinoma (CMS-HCC), Thrombocytopenia ([facility]), and Thyroid disease. PCP: Enedina Mcguire NP Home Pharmacy: [facility] [address] [place] [address] [place] [address] [facility] [address] [facility] [address] [facility] [place] [address] [facility] [address] [place] [address] Medical Insurance Coverage: Payor: [facility] / Plan: [employer] / [...] available for discharge planning needs. NUBIA Escalera, CLIP RIVETER Cell [phone] * Plan of Care - Elaine Carrillo [...] at all times. Outcome: Completed Problem: Non-violent, brn-nxbd-uvnngtfytbe restraints Description: Less restrictive alternative interventions will [...] of medical procedures, or protection of medical services assistant access. Outcome: Completed * Plan of Care [...] foods as appropriate. Outcome: Progressing Problem: Non-violent, xjn-tgpd-xmfqzvywcyg restraints Description: Less restrictive alternative interventions will [...] of medical procedures, or protection of medical services assistant access. Outcome: Progressing * Plan of Care - Shanel Shen RN - 10/27/2024 9:00 AM EDT Problem: Non-violent, axr-zlty-mpvlzbysdrl restraints Description: Less restrictive alternative interventions will [...] - 10/26/2024 7:41 PM EDT Problem: Non-violent, hyy-xvjr-nkarsfyhcbt restraints Description: Less restrictive alternative interventions will [...] of medical procedures, or protection of medical services assistant access. Outcome: Not Progressing Patient in bilateral [...] restraint flowsheet for further documentation. Problem: Non-violent, rpe-zkmz-sgbrackxbcu restraints Description: Less restrictive alternative interventions will [...] of medical procedures, or protection of medical services assistant access. Outcome: Progressing * Plan of Care [...] Routine Acute kidney injury superimposed on CKD ([facility]) Release Upon Ordering for 1 Occurrences starting 10/27/2024 Fungus culture Microbiology Routine Acute kidney injury superimposed on CKD ([facility]) Release Upon Ordering for 1 Occurrences starting 10/27/2024 Routine Culture plus Stain Microbiology Routine Acute kidney injury superimposed on CKD ([facility]) Release Upon Ordering for 1 Occurrences starting 10/27/2024 Surgical Pathology Exam Pathology and Cytology Routine Acute kidney injury superimposed on CKD ([facility]) Release Upon Ordering for 1 Occurrences starting [...] Routine 10/31/2024 11:59 AM EDT US DUPLEX PAE-XSTQJI-FALZJQC COMPLETE Routine 10/31/2024 10:19 AM EDT US [...] Routine 10/28/2024 5:31 PM EDT US DUPLEX SAJ-KDFVWD-GXPBSQV COMPLETE STAT 10/28/2024 4:23 PM EDT US [...] Routine 10/27/2024 10:00 AM EDT US DUPLEX UMQ-KBSEGP-YLHYGSS COMPLETE STAT 10/27/2024 9:51 AM EDT US [...] EDT Acute kidney injury superimposed on CKD ([facility]) ROUTINE CULTURE PLUS STAIN Routine 10/27/2024 2:15 [...] - 100 mg/dL 11/02/2024 5:45 PM EDT [facility] Blood 11/02/2024 5:44 PM EDT 11/02/2024 5:45 PM EDT us Semaj Mcnair III, MD POINT OF CARE TEST ORDERABLES Final Result [facility] [address] * (ABNORMAL) POC Glucose Monitoring Device (11/02/2024 3:34 PM EDT) POC Glucose Monitoring Device 208(H) 70 - 100 mg/dL 11/02/2024 3:35 PM EDT [facility] Blood 11/02/2024 3:34 PM EDT 11/02/2024 3:35 PM EDT Semaj Mcnair III, MD POINT OF CARE TEST ORDERABLES Final Result Performing Organization Address City/[facility]/ZIP Co de Phone Number [facility] [address] * (ABNORMAL) POC Glucose Monitoring Device (11/02/2024 1:18 PM EDT) POC Glucose Monitoring Device 225(H) 70 - 100 mg/dL 11/02/2024 1:19 PM EDT [facility] Blood 11/02/2024 1:18 PM EDT 11/02/2024 1:19 PM EDT us Semaj Mcnair III, MD POINT OF CARE TEST ORDERABLES Final Result Performing Organization Address City/[facility]/ZIP Co de Phone Number [facility] [address] * (ABNORMAL) POC Glucose Monitoring Device (11/02/2024 8:59 AM EDT) POC Glucose Monitoring Device 129(H) 70 - 100 mg/dL 11/02/2024 9:00 AM EDT [facility] Blood 11/02/2024 8:59 AM EDT 11/02/2024 9:00 AM EDT us Semaj Mcnair III, MD POINT OF CARE TEST ORDERABLES Final Result [facility] [address] * Tacrolimus level (11/02/2024 5:53 AM EDT) Pathologist [facility] Tacrolimus (LC-MS) 7.4 3.0 - 15.0 ng/mL 11/02/2024 2:23 PM EDT [facility] Comment:Performed via liquid chromatography tandem mass spectrometry. Detection limit: 1 ng/mL. Individual target concentrations may vary due to target organ and time after transplant. This test has been developed and its performance characteristics determined by [facility] which is certified under the Clinical Laboratory [...] PharmD LAB BLOOD ORDERABLES Denisse l Result [facility] [address] [facility]. [address] * (ABNORMAL) Renal Function Panel w/EGFR (11/02/2024 5:53 AM EDT) Pathologist [facility] [place] Sodium 140 133 - 146 mmol/L 11/02/2024 6:47 AM EDT [facility] Potassium 3.3(L) 3.5 - 5.3 mmol/L 11/02/2024 6:47 AM EDT [facility] Chloride 107 98 - 110 mmol/L 11/02/2024 6:47 AM EDT [facility] CO2 25 21 - 33 mmol/L 11/02/2024 6:47 AM EDT [facility] Anion Gap 8 3 - 16 mmol/L 11/02/2024 6:47 AM EDT [facility] BUN 31(H) 7 - 25 mg/dL 11/02/2024 6:47 AM EDT [facility] Creatinine 1.08 0.60 - 1.30 mg/dL 11/02/2024 6:47 AM EDT [facility] Glucose 150(H) 70 - 100 mg/dL 11/02/2024 6:47 AM EDT [facility] Calcium 7.8(L) 8.6 - 10.3 mg/dL 11/02/2024 6:47 AM EDT [facility] Phosphorus 2.0(L) 2.1 - 4.7 mg/dL 11/02/2024 6:47 AM EDT [facility] Albumin 3.2(L) 3.5 - 5.7 g/dL 11/02/2024 6:47 AM EDT [facility] Osmolality, Calculated 299 278 - 305 mOsm/kg 11/02/2024 6:47 AM EDT [facility] EGFR 88 11/02/2024 6:47 AM EDT [facility] Comment:As of 2021, the estimated [...] 11/02/2024 6:12 AM EDT us Beata Horner DIRECTOR OF INSTRUMENTAL MUSIC LAB BLOOD ORDERABLES Denisse valle Result [facility] [address] [place], [place] [address] * (ABNORMAL) Magnesium (11/02/2024 5:53 AM EDT) Magnesium 1.3(L) 1.5 - 2.5 mg/dL 11/02/2024 6:47 AM EDT [facility] Plasma 11/02/2024 5:53 AM EDT 11/02/2024 6:12 AM EDT Beata Horner [facility] BLOOD ORDERABLES Denisse l Result Performing Organization Address [facility] Co de Phone Number [facility] [address] [facility]. [address] * (ABNORMAL) Hepatic Function Panel (11/02/2024 5:53 AM EDT) Total Bilirubin 1.6(H) 0.0 - 1.5 mg/dL 11/02/2024 6:47 AM EDT [facility] Bilirubin, Direct 0.81(H) 0.00 - 0.40 mg/dL 11/02/2024 6:47 AM EDT [facility] AST 30 13 - 39 U/L 11/02/2024 6:47 AM EDT [facility] ALT 66(H) 7 - 52 U/L 11/02/2024 6:47 AM EDT [facility] Alkaline Phosphatase 126(H) 36 - 125 U/L 11/02/2024 6:47 AM EDT [facility] Total Protein 4.6(L) 6.4 - 8.9 g/dL 11/02/2024 6:47 AM EDT [facility] Albumin 3.2(L) 3.5 - 5.7 g/dL 11/02/2024 6:47 AM EDT [facility] Bilirubin, Indirect 0.79 0.00 - 1.10 mg/dL 11/02/2024 6:47 AM EDT [facility] Plasma 11/02/2024 5:53 AM EDT 11/02/2024 6:12 AM EDT Beata Horner [facility] BLOOD ORDERABLES Denisse l Result [facility] [address] [facility]. [address] * (ABNORMAL) CBC (11/02/2024 5:53 AM EDT) Pathologist [facility] [place] WBC 5.8 3.8 - 10.8 10E3/uL 11/02/2024 6:21 AM EDT [facility] RBC 3.12(L) 4.20 - 5.80 10E6/uL 11/02/2024 6:21 AM EDT [facility] Hemoglobin 9.2(L) 13.2 - 17.1 g/dL 11/02/2024 6:21 AM EDT [facility] Hematocrit 27.5(L) 38.5 - 50.0 % 11/02/2024 6:21 AM EDT [facility] MCV 87.9 80.0 - 100.0 fL 11/02/2024 6:21 AM EDT [facility] MCH 29.5 27.0 - 33.0 pg 11/02/2024 6:21 AM EDT [facility] MCHC 33.5 32.0 - 36.0 g/dL 11/02/2024 6:21 AM EDT [facility] RDW 17.5(H) 11.0 - 15.0 % 11/02/2024 6:21 AM EDT [facility] Platelets 61(L) 140 - 400 10E3/uL 11/02/2024 6:21 AM EDT [facility] MPV 7.9 7.5 - 11.5 fL 11/02/2024 6:21 AM EDT [facility] Whole Blood 11/02/2024 5:53 AM EDT 11/02/2024 6:12 AM EDT Beata Horner [facility] BLOOD ORDERABLES Denisse l Result [facility] [address] [place] [address], [facility] * (ABNORMAL) POC Glucose Monitoring Device (11/01/2024 9:26 PM EDT) Pathologist [facility] [place] POC Glucose Monitoring Device 199(H) 70 - 100 mg/dL 11/01/2024 9:27 PM EDT [facility] Blood 11/01/2024 9:26 PM EDT 11/01/2024 9:27 PM EDT Semaj Mcnair III, MD POINT OF CARE TEST ORDERABLES Final Result [facility] [address] * (ABNORMAL) POC Glucose Monitoring Device (11/01/2024 5:04 PM EDT) POC Glucose Monitoring Device 255(H) 70 - 100 mg/dL 11/01/2024 5:05 PM EDT [facility] Blood 11/01/2024 5:04 PM EDT 11/01/2024 5:05 PM EDT Semaj Mcnair III, MD POINT OF CARE TEST ORDERABLES Final Result Performing Organization Address City/[facility] Co de Phone Number [facility] [address] * (ABNORMAL) Renal Function Panel w/EGFR, STAT (11/01/2024 2:17 PM EDT) Sodium 139 133 - 146 mmol/L 11/01/2024 3:10 PM EDT [facility] Potassium 3.3(L) 3.5 - 5.3 mmol/L 11/01/2024 3:10 PM EDT [facility] Chloride 107 98 - 110 mmol/L 11/01/2024 3:10 PM EDT [facility] CO2 24 21 - 33 mmol/L 11/01/2024 3:10 PM EDT [facility] Anion Gap 8 3 - 16 mmol/L 11/01/2024 3:10 PM EDT [facility] BUN 35(H) 7 - 25 mg/dL 11/01/2024 3:10 PM EDT [facility] Creatinine 1.22 0.60 - 1.30 mg/dL 11/01/2024 3:10 PM EDT [facility] Glucose 203(H) 70 - 100 mg/dL 11/01/2024 3:10 PM EDT [facility] Calcium 8.3(L) 8.6 - 10.3 mg/dL 11/01/2024 3:10 PM EDT [facility] Phosphorus 2.2 2.1 - 4.7 mg/dL 11/01/2024 3:10 PM EDT [facility] Albumin 3.4(L) 3.5 - 5.7 g/dL 11/01/2024 3:10 PM EDT [facility] Osmolality, Calculated 302 278 - 305 mOsm/kg 11/01/2024 3:10 PM EDT [facility] EGFR 76 11/01/2024 3:10 PM EDT [facility] Comment:As of 2021, the estimated [...] Marks MD LAB BLOOD ORDERABLES Final Result [facility] [address] [place] [address], [facility] * X-ray Portable Abdomen AP view (11/01/2024 [...] - 100 mg/dL 11/01/2024 12:23 PM EDT [facility] Blood 11/01/2024 12:2 2 PM EDT 11/01/2024 12:23 PM EDT Semaj Mcnair III, MD POINT OF CARE TEST ORDERABLES Final Result [facility] [address] * (ABNORMAL) POC Glucose Monitoring Device (11/01/2024 8:50 AM EDT) [facility] POC Glucose Monitoring Device 175(H) 70 - 100 mg/dL 11/01/2024 8:51 AM EDT [facility] Blood 11/01/2024 8:50 AM EDT 11/01/2024 8:51 AM EDT Semaj Mcnair III, MD POINT OF CARE TEST ORDERABLES Final Result [facility] [address] [facility]. [address] * Tacrolimus level (11/01/2024 6:01 AM EDT) [facility] Tacrolimus (LC-MS) 7.5 3.0 - 15.0 ng/mL 11/01/2024 12:14 PM EDT [facility] Comment:Performed via liquid chromatography tandem mass spectrometry. Detection limit: 1 ng/mL. Individual target concentrations may vary due to target organ and time after transplant. This test has been developed and its performance characteristics determined by [facility] which is certified under [...] PharmD LAB BLOOD ORDERABLES Denisse l Result [facility] [address] [facility]. [address] * (ABNORMAL) Renal Function Panel w/EGFR (11/01/2024 6:01 AM EDT) [facility] Sodium 139 133 - 146 mmol/L 11/01/2024 6:57 AM EDT [facility] Potassium 3.3(L) 3.5 - 5.3 mmol/L 11/01/2024 6:57 AM EDT [facility] Chloride 108 98 - 110 mmol/L 11/01/2024 6:57 AM EDT [facility] CO2 22 21 - 33 mmol/L 11/01/2024 6:57 AM EDT [facility] Anion Gap 9 3 - 16 mmol/L 11/01/2024 6:57 AM EDT [facility] BUN 37(H) 7 - 25 mg/dL 11/01/2024 6:57 AM EDT [facility] Creatinine 1.30 0.60 - 1.30 mg/dL 11/01/2024 6:57 AM T [facility] Glucose 163(H) 70 - 100 mg/dL 11/01/2024 6:57 AM EDT [facility] Calcium 8.2(L) 8.6 - 10.3 mg/dL 11/01/2024 6:57 AM EDT [facility] Phosphorus 2.9 2.1 - 4.7 mg/dL 11/01/2024 6:57 AM EDT [facility] Albumin 3.1(L) 3.5 - 5.7 g/dL 11/01/2024 6:57 AM EDT [facility] Osmolality, Calculated 300 278 - 305 mOsm/kg 11/01/2024 6:57 AM EDT [facility] EGFR 71 11/01/2024 6:57 AM EDT [facility] Comment:As of 2021, the estimated [...] 11/01/2024 6:20 AM EDT Beata Garlandbrook Horner DIRECTOR OF INSTRUMENTAL MUSIC LAB BLOOD ORDERABLES Denisse l Result Performing Organization Address City/[facility]/ZIP Co de Phone Number [facility] [address] * Magnesium (11/01/2024 6:01 AM EDT) Magnesium 1.5 1.5 - 2.5 mg/dL 11/01/2024 6:57 AM EDT [facility] Plasma 11/01/2024 6:01 AM EDT 11/01/2024 6:20 AM EDT Beata Horner [facility] BLOOD ORDERABLES Denisse l Result Performing Organization Address [facility] Co de Phone Number [facility] [address] * (ABNORMAL) Hepatic Function Panel (11/01/2024 6:01 AM EDT) Total Bilirubin 2.0(H) 0.0 - 1.5 mg/dL 11/01/2024 6:57 AM EDT [facility] Bilirubin, Direct 1.06(H) 0.00 - 0.40 mg/dL 11/01/2024 6:57 AM EDT [facility] AST 21 13 - 39 U/L 11/01/2024 6:57 AM EDT [facility] ALT 62(H) 7 - 52 U/L 11/01/2024 6:57 AM EDT [facility] Alkaline Phosphatase 114 36 - 125 U/L 11/01/2024 6:57 AM EDT [facility] Total Protein 4.6(L) 6.4 - 8.9 g/dL 11/01/2024 6:57 AM EDT [facility] Albumin 3.1(L) 3.5 - 5.7 g/dL 11/01/2024 6:57 AM EDT [facility] Bilirubin, Indirect 0.94 0.00 - 1.10 mg/dL 11/01/2024 6:57 AM EDT [facility] Plasma 11/01/2024 6:01 AM EDT 11/01/2024 6:20 AM EDT Beata Horner DIRECTOR OF INSTRUMENTAL MUSIC LAB BLOOD ORDERABLES Denisse l Result [facility] [address] [id number] * (ABNORMAL) CBC (11/01/2024 6:01 AM EDT) WBC 5.9 3.8 - 10.8 10E3/uL 11/01/2024 6:29 AM EDT [facility] RBC 3.19(L) 4.20 - 5.80 10E6/uL 11/01/2024 6:29 AM EDT [facility] Hemoglobin 9.5(L) 13.2 - 17.1 g/dL 11/01/2024 6:29 AM EDT [facility] Hematocrit 27.8(L) 38.5 - 50.0 % 11/01/2024 6:29 AM EDT [facility] MCV 87.1 80.0 - 100.0 fL 11/01/2024 6:29 AM EDT [facility] MCH 29.9 27.0 - 33.0 pg 11/01/2024 6:29 AM EDT [facility] MCHC 34.3 32.0 - 36.0 g/dL 11/01/2024 6:29 AM EDT [facility] RDW 17.4(H) 11.0 - 15.0 % 11/01/2024 6:29 AM EDT [facility] Platelets 56(L) 140 - 400 10E3/uL 11/01/2024 6:29 AM EDT [facility] MPV 8.3 7.5 - 11.5 fL 11/01/2024 6:29 AM EDT [facility] Whole Blood 11/01/2024 6:01 AM EDT 11/01/2024 6:19 AM EDT us Beata Horner [facility] BLOOD ORDERABLES Denisse l Result [facility] [address] [facility]. [address] * (ABNORMAL) POC Glucose Monitoring Device (10/31/2024 9:15 PM EDT) POC Glucose Monitoring Device 171(H) 70 - 100 mg/dL 10/31/2024 9:15 PM EDT [facility] Blood 10/31/2024 9:15 PM EDT 10/31/2024 9:15 PM EDT Semaj Mcnair III, MD POINT OF CARE TEST ORDERABLES Final Result Performing Organization Address [facility] Co de Phone Number [facility] [address] [facility]. [address] * (ABNORMAL) POC Glucose Monitoring Device (10/31/2024 5:56 PM EDT) POC Glucose Monitoring Device 179(H) 70 - 100 mg/dL 10/31/2024 5:57 PM EDT [facility] Blood 10/31/2024 5:56 PM EDT 10/31/2024 5:57 PM EDT Semaj Mcnair III, MD POINT OF CARE TEST ORDERABLES Final Result [facility] [address] [facility]. [address] * CT Abdomen and Pelvis WO [...] Adrenal gland: No focal nodule seen. Kidneys: [place] kidneys noted with nonobstructing calcifications on the right. Findings of postsurgical changes in the left northway kidney. Mild right hydronephrosis without an obstructive [...] Adrenal gland: No focal nodule seen. Kidneys: [place] kidneys noted with nonobstructing calcifications on theright. Findings of postsurgical changes in the left northway kidney. Mildright hydronephrosis without an obstructive course [...] QT: 400 ms QTc: 456 ms P Middleton: 49 degrees R Middleton: 3 degrees T Middleton: 14 degrees Diagnosis Line: NORMAL SINUS RHYTHM ^ NORMAL ECG ^ ^ Confirmed by MD REID JAMES ([id number]) on 11/02/2024 6:56:52 AM Priti Geiger CNP ECG ORDERABLES Final Result [facility] * (ABNORMAL) Urinalysis w/Rfl to Microscopic (10/31/2024 1:18 PM EDT) Color, UA Straw Yellow,Straw 10/31/2024 1:46 PM EDT [facility] Clarity, UA Clear Clear 10/31/2024 1:46 PM EDT [facility] Specific Industry, UA 1.013 1.005 - 1.035 10/31/2024 1:46 PM EDT [facility] pH, UA 6.5 5.0 - 8.0 10/31/2024 1:46 PM EDT [facility] Protein, UA Negative Negative mg/dL 10/31/2024 1:46 PM EDT [facility] Glucose, UA Negative Negative mg/dL 10/31/2024 1:46 PM EDT [facility] Ketones, UA Negative Negative mg/dL 10/31/2024 1:46 PM EDT [facility] Bilirubin, UA Negative Negative 10/31/2024 1:46 PM EDT [facility] Blood, UA Large(A) Negative 10/31/2024 1:46 PM EDT [facility] Nitrite, UA Negative Negative 10/31/2024 1:46 PM EDT [facility] Urobilinogen, UA <2.0 0.2 - 1.9 mg/dL 10/31/2024 1:46 PM EDT [facility] Leukocyte Esterase, UA Negative Negative 10/31/2024 1:46 PM EDT [facility] RBC, UA >100(H) 0 - 3 /HPF 10/31/2024 1:46 PM EDT [facility] WBC, UA 3 0 - 5 /HPF 10/31/2024 1:46 PM EDT [facility] Hyaline Casts, UA 3(H) 0 - 2 /LPF 10/31/2024 1:46 PM EDT [facility] Urine 10/31/2024 1:18 PM EDT 10/31/2024 1:32 PM EDT Priti Geiger CNP URINE ORDERABLES Final Result [facility] [address] * (ABNORMAL) Post Kidney Transplant Urine Culture (10/31/2024 1:18 PM EDT) Culture Result Enterococcus faecium, Vancomycin Resistant(A) [facility] Comment: 1,000- <10,000 cfu/mL Identified [...] MICROBIOLOGY - GENERAL ORDERA BLES Final Result [facility] [address] * (ABNORMAL) POC Glucose Monitoring Device (10/31/2024 11:59 AM EDT) Pathologist [facility] [place] POC Glucose Monitoring Device 130(H) 70 - 100 mg/dL 10/31/2024 12:21 PM EDT [facility] Blood 10/31/2024 11:5 9 AM EDT 10/31/2024 12:21 PM EDT Semaj Mcnair III, MD POINT OF CARE TEST ORDERABLES Final Result [facility] [address] * US Abdomen Limited (10/31/2024 10:19 [...] EXAM: US ABDOMEN LIMITED EXAM: US DUPLEX [id number] COMPLETE INDICATION: Post-op liver transplant COMPARISON: None [...] visualized secondary to poor acoustic windows. The northway right kidney measures 11.6 cm in length. [...] EXAM: US ABDOMEN LIMITED EXAM: US DUPLEX [id number] COMPLETE INDICATION: Post-op liver transplant COMPARISON: None [...] well visualized secondary to poor acousticwindows. The [place] right kidney measures 11.6 cm in length. [...] at 10/31/2024 10:35 AM EDT Beata Horner [facility] US ORDERABLES Final R esult [...] 10/31/2024 10:29 AM EDT us Beata Horner [facility] IM US ORDERABLES Final R esult * US Duplex Nps-Wun-Ucpzepz Comp (10/31/2024 10:19 AM EDT) Anatomical Region [...] EXAM: US ABDOMEN LIMITED EXAM: US DUPLEX [id number] COMPLETE INDICATION: Post-op liver transplant COMPARISON: None [...] visualized secondary to poor acoustic windows. The [place] right kidney measures 11.6 cm in length. [...] EXAM: US ABDOMEN LIMITED EXAM: US DUPLEX [id number] COMPLETE INDICATION: Post-op liver transplant COMPARISON: None [...] well visualized secondary to poor acousticwindows. The [place] right kidney measures 11.6 cm in length. [...] at 10/31/2024 10:35 AM EDT Beata Horner [facility] US ORDERABLES Final R esult * ECG 12-lead (MUSE) (10/31/2024 8:57 AM EDT) 10/31/2024 8:57 AM EDT Narrative MUSE - 11/01/2024 9:21 AM EDT Ventricular Rate: 83 BPM Atrial Rate: 83 BPM P-R Interval: 168 ms QRS Duration: 102 ms QT: 392 ms QTc: 460 ms P Middleton: 64 degrees R Middleton: -18 degrees T Middleton: 7 degrees Diagnosis Line: NORMAL SINUS RHYTHM ^ NORMAL ECG ^ ^ Confirmed by MD JOE, KIMBERLYIIA ([id number]) on 11/01/2024 9:21:13 AM Priti Geiger DIRECTOR OF INSTRUMENTAL MUSIC ECG ORDERABLES Final Result [facility] * (ABNORMAL) POC Glucose Monitoring Device (10/31/2024 8:44 AM EDT) POC Glucose Monitoring Device 145(H) 70 - 100 mg/dL 10/31/2024 8:45 AM EDT [facility] Blood 10/31/2024 8:44 AM EDT 10/31/2024 8:44 AM EDT Semaj Mcnair III, MD POINT OF CARE TEST ORDERABLES Final Result Performing Organization Address [facility] de Phone Number [facility] [address] * Tacrolimus level (10/31/2024 6:40 AM EDT) Pathologist [facility] [place] Tacrolimus (LC-MS) 8.4 3.0 - 15.0 ng/mL 10/31/2024 10:05 AM EDT [facility] Comment:Performed via liquid chromatography tandem mass spectrometry. Detection limit: 1 ng/mL. Individual target concentrations may vary due to target organ and time after transplant. This test has been developed and its performance characteristics determined by [facility] which is certified under [...] l Result Performing Organization Address [facility] Co de Phone Number [facility] [address] [facility]. [address] * (ABNORMAL) Renal Function Panel w/EGFR (10/31/2024 6:40 AM EDT) Sodium 141 133 - 146 mmol/L 10/31/2024 8:09 AM EDT [facility] Potassium 3.5 3.5 - 5.3 mmol/L 10/31/2024 8:09 AM EDT [facility] Chloride 111(H) 98 - 110 mmol/L 10/31/2024 8:09 AM EDT [facility] CO2 20(L) 21 - 33 mmol/L 10/31/2024 8:09 AM EDT [facility] Anion Gap 10 3 - 16 mmol/L 10/31/2024 8:09 AM EDT [facility] BUN 54(H) 7 - 25 mg/dL 10/31/2024 8:09 AM EDT [facility] Creatinine 1.75(H) 0.60 - 1.30 mg/dL 10/31/2024 8:09 AM EDT [facility] Glucose 136(H) 70 - 100 mg/dL 10/31/2024 8:09 AM EDT [facility] Calcium 8.7 8.6 - 10.3 mg/dL 10/31/2024 8:09 AM EDT [facility] Phosphorus 4.1 2.1 - 4.7 mg/dL 10/31/2024 8:09 AM T [facility] Albumin 3.2(L) 3.5 - 5.7 g/dL 10/31/2024 8:09 AM [facility] Osmolality, Calculated 309(H) 278 - 305 mOsm/kg 10/31/2024 8:09 AM [facility] EGFR 50 10/31/2024 8:09 AM T [facility] Comment:As of 2021, the estimated [...] EDT 10/31/2024 7:35 AM EDT Beata Horner [facility] BLOOD ORDERABLES Denisse l Result [facility] [address] [facility]. [address] * Magnesium (10/31/2024 6:40 AM EDT) Magnesium 1.8 1.5 - 2.5 mg/dL 10/31/2024 8:09 AM EDT [facility] Plasma 10/31/2024 6:40 AM EDT 10/31/2024 7:35 AM EDT Beata Garland Evens DIRECTOR OF [employer]STRUMENTAL [employer]IC LAB BLOOD ORDERABLES Denisse l Result Performing Organization Address City/[facility] Co de Phone Number [facility] [address] [facility]. [address] * (ABNORMAL) Hepatic Function Panel (10/31/2024 6:40 AM EDT) Total Bilirubin 2.7(H) 0.0 - 1.5 mg/dL 10/31/2024 8:09 AM EDT [facility] Bilirubin, Direct 1.57(H) 0.00 - 0.40 mg/dL 10/31/2024 8:09 AM EDT [facility] AST 26 13 - 39 U/L 10/31/2024 8:09 AM EDT [facility] ALT 68(H) 7 - 52 U/L 10/31/2024 8:09 AM EDT [facility] Alkaline Phosphatase 112 36 - 125 U/L 10/31/2024 8:09 AM EDT [facility] Total Protein 4.7(L) 6.4 - 8.9 g/dL 10/31/2024 8:09 AM EDT [facility] Albumin 3.2(L) 3.5 - 5.7 g/dL 10/31/2024 8:09 AM EDT [facility] Bilirubin, Indirect 1.13(H) 0.00 - 1.10 mg/dL 10/31/2024 8:09 AM EDT [facility] Plasma 10/31/2024 6:40 AM EDT 10/31/2024 7:35 AM EDT us Beata Dada Bessn [facility] BLOOD ORDERABLES Denisse l Result [facility] [address] [facility]. [address] * (ABNORMAL) CBC (10/31/2024 6:40 AM EDT) WBC 6.0 3.8 - 10.8 10E3/uL 10/31/2024 8:05 AM EDT [facility] RBC 3.14(L) 4.20 - 5.80 10E6/uL 10/31/2024 8:05 AM EDT [facility] Hemoglobin 9.6(L) 13.2 - 17.1 g/dL 10/31/2024 8:05 AM EDT [facility] Hematocrit 27.5(L) 38.5 - 50.0 % 10/31/2024 8:05 AM EDT [facility] MCV 87.6 80.0 - 100.0 fL 10/31/2024 8:05 AM EDT [facility] MCH 30.7 27.0 - 33.0 pg 10/31/2024 8:05 AM EDT [facility] MCHC 35.0 32.0 - 36.0 g/dL 10/31/2024 8:05 AM EDT [facility] RDW 17.9(H) 11.0 - 15.0 % 10/31/2024 8:05 AM EDT [facility] Platelets 44(L) 140 - 400 10E3/uL 10/31/2024 8:05 AM EDT [facility] Comment: CNV Specimen checked for clots. None detected. MPV 8.9 7.5 - 11.5 fL 10/31/2024 8:05 AM EDT [facility] Whole Blood 10/31/2024 6:40 AM EDT 10/31/2024 7:34 AM EDT Beata Horner [facility] BLOOD ORDERABLES Denisse l Result [facility] [address] * (ABNORMAL) POC Glucose Monitoring Device (10/30/2024 9:01 PM EDT) POC Glucose Monitoring Device 144(H) 70 - 100 mg/dL 10/30/2024 9:02 PM EDT [facility] Blood 10/30/2024 9:01 PM EDT 10/30/2024 9:01 PM EDT Semaj Mcnair III, MD POINT OF CARE TEST ORDERABLES Final Result [facility] [address] * (ABNORMAL) POC Glucose Monitoring Device (10/30/2024 5:37 PM EDT) POC Glucose Monitoring Device 124(H) 70 - 100 mg/dL 10/30/2024 5:47 PM EDT [facility] Blood 10/30/2024 5:37 PM EDT 10/30/2024 5:47 PM EDT us Semaj Mcnair III, MD POINT OF CARE TEST ORDERABLES Final Result [facility] [address] * (ABNORMAL) POC Glucose Monitoring Device (10/30/2024 7:26 AM EDT) POC Glucose Monitoring Device 150(H) 70 - 100 mg/dL 10/30/2024 7:27 AM EDT [facility] Blood 10/30/2024 7:26 AM EDT 10/30/2024 7:27 AM EDT us Semaj Mcnair III, MD POINT OF CARE TEST ORDERABLES Final Result [facility] [address] * Tacrolimus level (10/30/2024 7:13 AM EDT) Tacrolimus (LC-MS) 9.5 3.0 - 15.0 ng/mL 10/30/2024 2:53 PM EDT [facility] Comment:Performed via liquid chromatography tandem mass spectrometry. Detection limit: 1 ng/mL. Individual target concentrations may vary due to target organ and time after transplant. This test has been developed and its performance characteristics determined by [facility] which is certified under the Clinical Laboratory [...] 7:13 AM EDT 10/30/2024 7:26 AM EDT [facility] BLOOD ORDERABLES Final Re sult [facility] [address] * ECG 12-lead (MUSE) (10/30/2024 6:51 AM EDT) 10/30/2024 6:51 AM EDT Narrative MUSE - 11/01/2024 9:21 AM EDT Ventricular Rate: 92 BPM Atrial Rate: 92 BPM P-R Interval: 174 ms QRS Duration: 96 ms QT: 376 ms QTc: 464 ms P Middleton: 54 degrees R Middleton: -24 degrees T Middleton: 11 degrees Diagnosis Line: NORMAL SINUS RHYTHM ^ NORMAL ECG ^ ^ Confirmed by MD JOE, OTIS ([id number]) on 11/01/2024 9:21:09 AM [facility] ECG ORDERABLES Final Result MUSE * (ABNORMAL) Renal Function Panel w/EGFR (10/30/2024 5:41 AM EDT) Sodium 140 133 - 146 mmol/L 10/30/2024 6:18 AM EDT [facility] Potassium 3.8 3.5 - 5.3 mmol/L 10/30/2024 6:18 AM EDT [facility] Chloride 111(H) 98 - 110 mmol/L 10/30/2024 6:18 AM EDT [facility] CO2 17(L) 21 - 33 mmol/L 10/30/2024 6:18 AM EDT [facility] Anion Gap 12 3 - 16 mmol/L 10/30/2024 6:18 AM EDT [facility] BUN 62(H) 7 - 25 mg/dL 10/30/2024 6:18 AM EDT [facility] Creatinine 1.96(H) 0.60 - 1.30 mg/dL 10/30/2024 6:18 AM EDT [facility] Glucose 116(H) 70 - 100 mg/dL 10/30/2024 6:18 AM EDT [facility] Calcium 9.0 8.6 - 10.3 mg/dL 10/30/2024 6:18 AM EDT [facility] Phosphorus 4.6 2.1 - 4.7 mg/dL 10/30/2024 6:18 AM EDT [facility] Albumin 3.2(L) 3.5 - 5.7 g/dL 10/30/2024 6:18 AM EDT [facility] Osmolality, Calculated 309(H) 278 - 305 mOsm/kg 10/30/2024 6:18 AM EDT [facility] EGFR 43 10/30/2024 6:18 AM EDT [facility] Comment:As of 2021, the estimated [...] 10/30/2024 5:47 AM EDT Beata Newberrybrook Horner DIRECTOR OF INSTRUMENTAL MUSIC LAB BLOOD ORDERABLES Denisse l Result Performing Organization Address City/[facility]/ZIP Co de Phone Number [facility] [address] * Magnesium (10/30/2024 5:41 AM EDT) Magnesium 2.2 1.5 - 2.5 mg/dL 10/30/2024 6:18 AM EDT [facility] Plasma 10/30/2024 5:41 AM EDT 10/30/2024 5:[address] [facility] BLOOD ORDERABLES Denisse l Result Performing Organization Address [facility] Co de Phone Number [facility] [address] * (ABNORMAL) Hepatic Function Panel (10/30/2024 5:41 AM EDT) Total Bilirubin 3.6(H) 0.0 - 1.5 mg/dL 10/30/2024 6:18 AM EDT [facility] Bilirubin, Direct 1.95(H) 0.00 - 0.40 mg/dL 10/30/2024 6:18 AM EDT [facility] AST 33 13 - 39 U/L 10/30/2024 6:18 AM EDT [facility] ALT 71(H) 7 - 52 U/L 10/30/2024 6:18 AM EDT [facility] Alkaline Phosphatase 80 36 - 125 U/L 10/30/2024 6:18 AM EDT [facility] Total Protein 4.8(L) 6.4 - 8.9 g/dL 10/30/2024 6:18 AM EDT [facility] Albumin 3.2(L) 3.5 - 5.7 g/dL 10/30/2024 6:18 AM EDT [facility] Bilirubin, Indirect 1.65(H) 0.00 - 1.10 mg/dL 10/30/2024 6:18 AM EDT [facility] Plasma 10/30/2024 5:41 AM EDT 10/30/2024 5:47 AM EDT us Beata Horner DIRECTOR OF INSTRUMENTAL MUSIC LAB BLOOD ORDERABLES Denisse valle Result [facility] [address] [place] [address], [facility] * (ABNORMAL) CBC (10/30/2024 5:41 AM EDT) WBC 8.1 3.8 - 10.8 10E3/uL 10/30/2024 8:06 AM EDT [facility] RBC 3.29(L) 4.20 - 5.80 10E6/uL 10/30/2024 8:06 AM EDT [facility] Hemoglobin 10.1(L) 13.2 - 17.1 g/dL 10/30/2024 8:06 AM EDT [facility] Hematocrit 28.8(L) 38.5 - 50.0 % 10/30/2024 8:06 AM EDT [facility] MCV 87.6 80.0 - 100.0 fL 10/30/2024 8:06 AM EDT [facility] MCH 30.6 27.0 - 33.0 pg 10/30/2024 8:06 AM EDT [facility] MCHC 34.9 32.0 - 36.0 g/dL 10/30/2024 8:06 AM EDT [facility] RDW 18.1(H) 11.0 - 15.0 % 10/30/2024 8:06 AM EDT [facility] Platelets 44(L) 140 - 400 10E3/uL 10/30/2024 8:06 AM EDT [facility] Comment: CNV Specimen checked for clots. None detected. MPV 8.3 7.5 - 11.5 fL 10/30/2024 8:06 AM EDT [facility] Whole Blood 10/30/2024 5:41 AM EDT 10/30/2024 5:50 AM EDT Beata Horner [facility] BLOOD ORDERABLES Denisse l Result Performing Organization Address City/[facility]/ZIP Co de Phone Number [facility] [address] [place] [address]. [address] * (ABNORMAL) POC Glucose Monitoring Device (10/29/2024 10:18 PM EDT) POC Glucose Monitoring Device 140(H) 70 - 100 mg/dL 10/29/2024 10:18 PM EDT [facility] Blood 10/29/2024 10:1 8 PM EDT 10/29/2024 10:18 PM EDT us Semaj Mcnair III, MD POINT OF CARE TEST ORDERABLES Final Result Performing Organization Address [facility] Co de Phone Number [facility] [address] [place] [address]. [address] * (ABNORMAL) POC Glucose Monitoring Device (10/29/2024 6:42 PM EDT) POC Glucose Monitoring Device 152(H) 70 - 100 mg/dL 10/29/2024 6:43 PM EDT [facility] Blood 10/29/2024 6:4 2 PM EDT 10/29/2024 6:43 PM EDT us Semaj Mcnair III, MD POINT OF CARE TEST ORDERABLES Final Result Performing Organization Address City/[facility]/ZIP Co de Phone Number [facility] [address] [place] [address]. [address] * (ABNORMAL) POC Glucose Monitoring Device (10/29/2024 11:35 AM EDT) POC Glucose Monitoring Device 130(H) 70 - 100 mg/dL 10/29/2024 11:36 AM EDT [facility] Blood 10/29/2024 11:3 5 AM EDT 10/29/2024 11:36 AM EDT Semaj Mcnair III, MD POINT OF CARE TEST ORDERABLES Final Result Performing Organization Address City/[facility] Co de Phone Number [facility] [address] [place] [address], [facility] * ECG 12 lead (MUSE) (10/29/2024 9:34 AM EDT) 10/29/2024 9:34 AM EDT Narrative MUSE - 10/29/2024 10:34 PM EDT Ventricular Rate: 97 BPM Atrial Rate: 97 BPM P-R Interval: 186 ms QRS Duration: 104 ms QT: 382 ms QTc: 485 ms P Middleton: 54 degrees R Middleton: -21 degrees T Middleton: 1 degrees Diagnosis Line: NORMAL SINUS RHYTHM ^ NORMAL ECG ^ Confirmed by JORGE MACIAS ([id number]) on 10/29/2024 10:34:50 PM Afshan Bear MD ECG ORDERABLES Final Result Performing Organization Address [facility] Co de Phone Number MUSE * Tacrolimus level (10/29/2024 8:08 AM EDT) Tacrolimus (LC-MS) 10.4 3.0 - 15.0 ng/mL 10/29/2024 2:07 PM EDT [facility] Comment:Performed via liquid chromatography tandem mass spectrometry. Detection limit: 1 ng/mL. Individual target concentrations may vary due to target organ and time after transplant. This test has been developed and its performance characteristics determined by [facility] which is certified under [...] EDT 10/29/2024 8:21 AM EDT Priti Geiger [facility] BLOOD ORDERABLES Final Re sult [facility] [address] [place] [address], [facility] * Prepare RBC, leukoreduced, 1 Units (10/29/2024 6:16 AM EDT) Product Code H3272M42 HCLL Unit Number [id number] HCLL Dispense Status Presumed Transfused_PT HCLL Blood Expiration Date 141288007675 HCLL Coding System [id number] HCLL Blood Bank Product Shay Plata MD BLOOD BANK PRODUCT O RDERABLES Final Result Performing Organization Address [facility] Co de Phone Number HCLL * Prepare RBC, leukoreduced, 1 Units (10/29/2024 6:15 AM EDT) Product Code H9472H01 HCLL Unit Number [id number] HCLL Dispense Status Presumed Transfused_PT HCLL Blood Expiration Date [id number] HCLL Coding System [id number] HCLL Blood Bank Product Carlos Marks MD BLOOD BANK PRODUCT ORDERABL ES Final Result Performing Organization Address [facility] Co de Phone Number HCLL * Prepare RBC, leukoreduced, 1 Units (10/29/2024 6:15 AM EDT) Product Code A1661E44 HCLL Unit Number [id number] HCLL Dispense Status Presumed Transfused_PT HCLL Blood Expiration Date [id number] HCLL Coding System [id number] HCLL Blood Bank Product John Moreno MD BLOOD BANK PRODUCT ORDERABLE S Final Result Performing Organization Address [facility] Co de Phone Number HCLL * (ABNORMAL) Renal Function Panel w/EGFR (10/29/2024 5:07 AM EDT) Sodium 144 133 - 146 mmol/L 10/29/2024 5:49 AM EDT [facility] Potassium 3.8 3.5 - 5.3 mmol/L 10/29/2024 5:49 AM EDT [facility] Chloride 113(H) 98 - 110 mmol/L 10/29/2024 5:49 AM EDT [facility] CO2 17(L) 21 - 33 mmol/L 10/29/2024 5:49 AM EDT [facility] Anion Gap 14 3 - 16 mmol/L 10/29/2024 5:49 AM EDT [facility] BUN 57(H) 7 - 25 mg/dL 10/29/2024 5:49 AM EDT [facility] Creatinine 1.93(H) 0.60 - 1.30 mg/dL 10/29/2024 5:49 AM EDT [facility] Glucose 110(H) 70 - 100 mg/dL 10/29/2024 5:49 AM EDT [facility] Calcium 9.3 8.6 - 10.3 mg/dL 10/29/2024 5:49 AM EDT [facility] Phosphorus 4.8(H) 2.1 - 4.7 mg/dL 10/29/2024 5:49 AM EDT [facility] Albumin 3.5 3.5 - 5.7 g/dL 10/29/2024 5:49 AM EDT [facility] Osmolality, Calculated 314(H) 278 - 305 mOsm/kg 10/29/2024 5:49 AM EDT [facility] EGFR 44 10/29/2024 5:49 AM EDT [facility] Comment:As of 2021, the estimated [...] 10/29/2024 5:13 AM EDT Beata Newberrybrook Horner DIRECTOR OF INSTRUMENTAL MUSIC LAB BLOOD ORDERABLES Denisse l Result Performing Organization Address City/[facility]/ZIP Co de Phone Number [facility] [address] * Magnesium (10/29/2024 5:07 AM EDT) Magnesium 2.1 1.5 - 2.5 mg/dL 10/29/2024 5:49 AM EDT [facility] Plasma 10/29/2024 5:07 AM EDT 10/29/2024 5:[address] [facility] [facility] [place] [facility] BLOOD ORDERABLES Denisse l Result Performing Organization Address [facility] Co de Phone Number [facility] [address] * (ABNORMAL) Hepatic Function Panel (10/29/2024 5:07 AM EDT) Total Bilirubin 4.2(H) 0.0 - 1.5 mg/dL 10/29/2024 5:49 AM EDT [facility] Bilirubin, Direct 2.85(H) 0.00 - 0.40 mg/dL 10/29/2024 5:49 AM EDT [facility] AST 31 13 - 39 U/L 10/29/2024 5:49 AM EDT [facility] ALT 88(H) 7 - 52 U/L 10/29/2024 5:49 AM EDT [facility] Alkaline Phosphatase 51 36 - 125 U/L 10/29/2024 5:49 AM EDT [facility] Total Protein 5.2(L) 6.4 - 8.9 g/dL 10/29/2024 5:49 AM EDT [facility] Albumin 3.5 3.5 - 5.7 g/dL 10/29/2024 5:49 AM EDT [facility] Bilirubin, Indirect 1.35(H) 0.00 - 1.10 mg/dL 10/29/2024 5:49 AM EDT [facility] Plasma 10/29/2024 5:07 AM EDT 10/29/2024 5:13 AM EDT us Beata Horner DIRECTOR OF INSTRUMENTAL MUSIC LAB BLOOD ORDERABLES Denisse l Result [facility] [address] [facility] [place] [address], [facility] * (ABNORMAL) CBC (10/29/2024 5:07 AM EDT) WBC 7.8 3.8 - 10.8 10E3/uL 10/29/2024 5:38 AM EDT [facility] RBC 3.05(L) 4.20 - 5.80 10E6/uL 10/29/2024 5:38 AM EDT [facility] Hemoglobin 9.0(L) 13.2 - 17.1 g/dL 10/29/2024 5:38 AM EDT [facility] Hematocrit 26.7(L) 38.5 - 50.0 % 10/29/2024 5:38 AM EDT [facility] MCV 87.4 80.0 - 100.0 fL 10/29/2024 5:38 AM EDT [facility] MCH 29.7 27.0 - 33.0 pg 10/29/2024 5:38 AM EDT [facility] MCHC 33.9 32.0 - 36.0 g/dL 10/29/2024 5:38 AM EDT [facility] RDW 18.3(H) 11.0 - 15.0 % 10/29/2024 5:38 AM EDT [facility] Platelets 41(L) 140 - 400 10E3/uL 10/29/2024 5:38 AM EDT [facility] Comment: CNV Specimen checked for clots. None detected. MPV 7.5 7.5 - 11.5 fL 10/29/2024 5:38 AM EDT [facility] Whole Blood 10/29/2024 5:07 AM EDT 10/29/2024 5:13 AM EDT Beata Newbrerybrook Horner CNP LAB BLOOD ORDERABLES Denisse l Result [facility] [address] * (ABNORMAL) TEG-Bypass/ECMO/Liver HN (Factor function, Platelet/Fibrin Clot Strength w/Clot Breakdown, Heparinase In All Channels) (10/29/2024 5:07 AM EDT) [facility] Citrated Kaolin Reaction Time (TEGECMOLIVER) 8.9 4.6 - 9.1 minutes 10/29/2024 7:04 AM EDT [facility] Citrated Kaolin W/Heparinase Reaction Time (TEGECMOLIVER) 7.4 4.3 - 8.3 minutes 10/29/2024 7:04 AM EDT [facility] Citrated Kaolin Maximum Amplitude (TEGECMOLIVER) 52.9 52.0 - 69.0 mm 10/29/2024 7:04 AM EDT [facility] Citrated Functional Fibrinogen W/Heparinase Maximum Amplitude(TEGEC MOLIVER) 20.7 15.0 - 34.0 mm 10/29/2024 7:04 AM EDT [facility] Citrated Rapid Teg W/Heparinase Maximum Amplitude (TEGECMOLIVER) 49.7(L) 53.0 - 69.0 mm 10/29/2024 7:04 AM EDT [facility] Citrated Kaolin w/Heparinase Percent Lysis (TEGECMOLIVER) 0.0 0.0 - 3.2 % 10/29/2024 7:04 AM EDT [facility] Whole Blood (Citrate) 10/29/2024 5:07 AM EDT 10/29/2024 5:10 AM EDT Kemar Sahni MD LAB BLOOD ORDERABLES Final Result [facility] [address] * (ABNORMAL) TEG-Bypass/ECMO/Liver HN (Factor function, Platelet/Fibrin Clot Strength w/Clot Breakdown, Heparinase In All Channels) (10/28/2024 11:55 PM EDT) Citrated Kaolin Reaction Time (TEGECMOLIVER) 8.6 4.6 - 9.1 minutes 10/29/2024 2:01 AM EDT [facility] Citrated Kaolin W/Heparinase Reaction Time (TEGECMOLIVER) 8.7(H) 4.3 - 8.3 minutes 10/29/2024 2:01 AM EDT [facility] Citrated Kaolin Maximum Amplitude (TEGECMOLIVER) 47.9(L) 52.0 - 69.0 mm 10/29/2024 2:01 AM EDT [facility] Citrated Functional Fibrinogen W/Heparinase Maximum Amplitude(TEGEC MOLIVER) 22.0 15.0 - 34.0 mm 10/29/2024 2:01 AM EDT [facility] Citrated Rapid Teg W/Heparinase Maximum Amplitude (TEGECMOLIVER) 45.9(L) 53.0 - 69.0 mm 10/29/2024 2:01 AM EDT [facility] Citrated Kaolin w/Heparinase Percent Lysis (TEGECMOLIVER) 0.0 0.0 - 3.2 % 10/29/2024 2:01 AM EDT [facility] Whole Blood (Citrate) 10/28/2024 11:55 PM EDT 10/28/2024 11:58 PM EDT Kemar Sahni MD LAB BLOOD ORDERABLES Final Result [facility] [address] [place] [address], [facility] * (ABNORMAL) CBC, STAT (10/28/2024 8:04 PM EDT) WBC 3.9 3.8 - 10.8 10E3/uL 10/28/2024 8:36 PM EDT [facility] RBC 2.66(L) 4.20 - 5.80 10E6/uL 10/28/2024 8:36 PM EDT [facility] Hemoglobin 8.0(L) 13.2 - 17.1 g/dL 10/28/2024 8:36 PM EDT [facility] Hematocrit 23.0(L) 38.5 - 50.0 % 10/28/2024 8:36 PM EDT [facility] MCV 86.4 80.0 - 100.0 fL 10/28/2024 8:36 PM EDT [facility] MCH 29.9 27.0 - 33.0 pg 10/28/2024 8:36 PM EDT [facility] MCHC 34.6 32.0 - 36.0 g/dL 10/28/2024 8:36 PM EDT [facility] RDW 18.6(H) 11.0 - 15.0 % 10/28/2024 8:36 PM EDT [facility] Platelets 29(L) 140 - 400 10E3/uL 10/28/2024 8:36 PM EDT [facility] Comment: CNV Specimen checked for clots. None detected. MPV 7.8 7.5 - 11.5 fL 10/28/2024 8:36 PM EDT [facility] Whole Blood 10/28/2024 8:04 PM EDT 10/28/2024 8:14 PM EDT us Carlos Marks MD LAB BLOOD ORDERABLES Final Result Performing Organization Address City/[facility]/ZIP Co de Phone Number [facility] [address] * (ABNORMAL) POC Glucose Monitoring Device (10/28/2024 8:03 PM EDT) POC Glucose Monitoring Device 122(H) 70 - 100 mg/dL 10/28/2024 8:04 PM EDT [facility] Blood 10/28/2024 8:03 PM EDT 10/28/2024 8:04 PM EDT Semaj Mcnair III, MD POINT OF CARE TEST ORDERABLES Final Result [facility] [address] * (ABNORMAL) TEG-Bypass/ECMO/Liver HN (Factor function, Platelet/Fibrin Clot Strength w/Clot Breakdown, Heparinase In All Channels) (10/28/2024 6:39 PM EDT) Pathologist [facility] Citrated Kaolin Reaction Time (TEGECMOLIVER) 9.0 4.6 - 9.1 minutes 10/28/2024 7:50 PM EDT [facility] Citrated Kaolin W/Heparinase Reaction Time (TEGECMOLIVER) 8.3 4.3 - 8.3 minutes 10/28/2024 7:50 PM EDT [facility] Citrated Kaolin Maximum Amplitude (TEGECMOLIVER) 47.6(L) 52.0 - 69.0 mm 10/28/2024 7:50 PM EDT [facility] Citrated Functional Fibrinogen W/Heparinase Maximum Amplitude(TEGEC MOLIVER) 20.4 15.0 - 34.0 mm 10/28/2024 7:50 PM EDT [facility] Citrated Rapid Teg W/Heparinase Maximum Amplitude (TEGECMOLIVER) 44.0(L) 53.0 - 69.0 mm 10/28/2024 7:50 PM EDT [facility] Citrated Kaolin w/Heparinase Percent Lysis (TEGECMOLIVER) 0.0 0.0 - 3.2 % 10/28/2024 7:50 PM EDT [facility] Whole Blood (Citrate) 10/28/2024 6:39 PM EDT 10/28/2024 6:42 PM EDT us Kemar Sahni MD LAB BLOOD ORDERABLES Final Result [facility] [address] [facility] [place] [address], [facility] * (ABNORMAL) POC Glucose Monitoring Device (10/28/2024 5:31 PM EDT) [facility] POC Glucose Monitoring Device 130(H) 70 - 100 mg/dL 10/28/2024 5:31 PM EDT [facility] Blood 10/28/2024 5:31 PM EDT 10/28/2024 5:31 PM EDT us Semaj Mcnair III, MD POINT OF CARE TEST ORDERABLES Final Result [facility] [address] [place] [address], [facility] * Transfuse RBC Transfusion Rate: Per dept routine (10/28/2024 5:23 PM EDT) us Shay Plata MD NURSING TREATMENT OR DERABLES - BLOOD ADMIN Final Result Performing Organization Address City/[facility]/ZIP Co de Phone Number EXTERNAL * Transfuse RBC Transfusion Rate: Per dept routine, 1 Units (10/28/2024 5:23 PM EDT) Shay Plata MD NURSING TREATMENT OR DERABLES - BLOOD ADMIN Final Result Performing Organization Address [facility] Co de Phone Number EXTERNAL * US [...] EXAM: US ABDOMEN LIMITED EXAM: US DUPLEX [id number] COMPLETE INDICATION: Post-op liver transplant DATE: 10/28/2024 [...] retrohepatic inferior vena cava is patent. The [place]way right kidney is partially visualized. A prominent [...] EXAM: US ABDOMEN LIMITED EXAM: US DUPLEX [id number] COMPLETE INDICATION: Post-op liver transplant DATE: 10/28/2024 [...] retrohepatic inferior vena cava is patent. The northway right kidney is partially visualized. A prominent [...] ORDERABLES Fi nal Result * US Duplex Ots-Olc-Kgrvhyr Comp (10/28/2024 4:23 PM EDT) Anatomical Region [...] EXAM: US ABDOMEN LIMITED EXAM: US DUPLEX [id number] COMPLETE INDICATION: Post-op liver transplant DATE: 10/28/2024 [...] retrohepatic inferior vena cava is patent. The [place] right kidney is partially visualized. A prominent [...] EXAM: US ABDOMEN LIMITED EXAM: US DUPLEX [id number] COMPLETE INDICATION: Post-op liver transplant DATE: 10/28/2024 [...] retrohepatic inferior vena cava is patent. The [place] right kidney is partially visualized. A prominent [...] 10/28/2024 4:42 PM EDT Shay Plata MD [facility] [place] US ORDERABLES Fi nal Result * (ABNORMAL) CBC, STAT (10/28/2024 2:49 PM EDT) WBC 4.0 3.8 - 10.8 10E3/uL 10/28/2024 3:07 PM EDT [facility] RBC 2.44(L) 4.20 - 5.80 10E6/uL 10/28/2024 3:07 PM EDT [facility] Hemoglobin 7.5(L) 13.2 - 17.1 g/dL 10/28/2024 3:07 PM EDT [facility] Hematocrit 21.4(L) 38.5 - 50.0 % 10/28/2024 3:07 PM EDT [facility] MCV 87.6 80.0 - 100.0 fL 10/28/2024 3:07 PM EDT [facility] MCH 30.6 27.0 - 33.0 pg 10/28/2024 3:07 PM EDT [facility] MCHC 34.9 32.0 - 36.0 g/dL 10/28/2024 3:07 PM EDT [facility] RDW 18.4(H) 11.0 - 15.0 % 10/28/2024 3:07 PM EDT [facility] Platelets 30(L) 140 - 400 10E3/uL 10/28/2024 3:07 PM EDT [facility] Comment: CNV Specimen checked for clots. None detected. MPV 7.7 7.5 - 11.5 fL 10/28/2024 3:07 PM EDT [facility] Whole Blood 10/28/2024 2:49 PM EDT 10/28/2024 2:53 PM EDT us Carlos Marks MD LAB BLOOD ORDERABLES Final Result [facility] [address] * ECG 12 lead (MUSE) (10/28/2024 1:22 PM EDT) 10/28/2024 1:22 PM EDT Narrative MUSE - 10/29/2024 10:34 PM EDT Ventricular Rate: 104 BPM Atrial Rate: 104 BPM P-R Interval: 172 ms QRS Duration: 90 ms QT: 354 ms QTc: 465 ms P [place]: 58 degrees R [place]: -19 degrees T [place]: 38 degrees Diagnosis Line: SINUS TACHYCARDIA ^ OTHERWISE NORMAL ECG ^ ^ Confirmed by JORGE MACIAS ([id number]) on 10/29/2024 10:34:22 PM us Hillary Fernandes PharmD ECG ORDERABLES Final Res ult MUSE * (ABNORMAL) POC Glucose Monitoring Device (10/28/2024 12:54 PM EDT) POC Glucose Monitoring Device 119(H) 70 - 100 mg/dL 10/28/2024 12:55 PM EDT [facility] Blood 10/28/2024 12:5 4 PM EDT 10/28/2024 12:55 PM EDT us Semaj Mcnair III, MD POINT OF CARE TEST ORDERABLES Final Result [facility] [address] * Transfuse RBC Transfusion Rate: Per dept routine (10/28/2024 12:31 PM EDT) us Carlos Marks MD NURSING TREATMENT ORDERABLE S - BLOOD ADMIN Final Result Performing Organization Address City/[facility]/ZIP Co de Phone Number EXTERNAL * Transfuse RBC Transfusion Rate: Per dept routine, 1 Units (10/28/2024 12:31 PM EDT) us Carlos Marks MD NURSING TREATMENT ORDERABLE S - BLOOD ADMIN Final Result Performing Organization Address City/[facility] Co de Phone Number EXTERNAL * Protime-INR, STAT (10/28/2024 11:09 AM EDT) Protime 14.3 12.1 - 15.1 seconds 10/28/2024 11:29 AM EDT [facility] INR 1.1 0.9 - 1.1 10/28/2024 11:29 AM EDT [facility] Comment: RECOMMENDED THERAPEUTIC RANGES USING INR : Stable oral anticoagulant therapy: 2.0 - 3.0 Mechanical prosthetic heart valve: 2.5 - 3.5 Recurrent acute myocardial infarction: 2.5 - 3.5 Plasma 10/28/2024 11:0 9 AM EDT 10/28/2024 11:16 AM EDT us Carlos Marks MD LAB BLOOD ORDERABLES Final Result Performing Organization Address City/[facility]/ZIP Co de Phone Number [facility] [address] * (ABNORMAL) Lactic Acid, STAT (10/28/2024 11:09 AM EDT) Lactate 0.3(L) 0.5 - 2.2 mmol/L 10/28/2024 11:37 AM EDT [facility] Plasma 10/28/2024 11:0 9 AM EDT 10/28/2024 11:15 AM EDT us Carlos Marks MD LAB BLOOD ORDERABLES Final Result [facility] [address] [place] [address] * Magnesium, STAT (10/28/2024 11:09 AM EDT) Pathologist [facility] [place] Magnesium 2.1 1.5 - 2.5 mg/dL 10/28/2024 11:47 AM EDT [facility] Plasma 10/28/2024 11:0 9 AM EDT 10/28/2024 11:16 AM EDT us Carlos Marks MD LAB BLOOD ORDERABLES Final Result [facility] [address] * (ABNORMAL) Renal Function Panel w/EGFR, STAT (10/28/2024 11:09 AM EDT) Sodium 144 133 - 146 mmol/L 10/28/2024 11:47 AM EDT [facility] Potassium 3.4(L) 3.5 - 5.3 mmol/L 10/28/2024 11:47 AM EDT [facility] Chloride 112(H) 98 - 110 mmol/L 10/28/2024 11:47 AM EDT [facility] CO2 22 21 - 33 mmol/L 10/28/2024 11:47 AM EDT [facility] Anion Gap 10 3 - 16 mmol/L 10/28/2024 11:47 AM EDT [facility] BUN 57(H) 7 - 25 mg/dL 10/28/2024 11:47 AM EDT [facility] Creatinine 2.01(H) 0.60 - 1.30 mg/dL 10/28/2024 11:47 AM EDT [facility] Glucose 108(H) 70 - 100 mg/dL 10/28/2024 11:47 AM EDT [facility] Calcium 8.8 8.6 - 10.3 mg/dL 10/28/2024 11:47 AM EDT [facility] Phosphorus 4.0 2.1 - 4.7 mg/dL 10/28/2024 11:47 AM EDT [facility] Albumin 3.3(L) 3.5 - 5.7 g/dL 10/28/2024 11:47 AM EDT [facility] Osmolality, Calculated 314(H) 278 - 305 mOsm/kg 10/28/2024 11:47 AM EDT [facility] EGFR 42 10/28/2024 11:47 AM EDT [facility] Comment:As of 2021, the estimated [...] Marks MD LAB BLOOD ORDERABLES Final Result [facility] [address] [place] [address], [place] * (ABNORMAL) TEG-Bypass/ECMO/Liver HN (Factor function, Platelet/Fibrin Clot Strength w/Clot Breakdown, Heparinase In All Channels) (10/28/2024 11:09 AM EDT) Citrated Kaolin Reaction Time (TEGECMOLIVER) 9.2(H) 4.6 - 9.1 minutes 10/28/2024 12:30 PM EDT [facility] Citrated Kaolin W/Heparinase Reaction Time (TEGECMOLIVER) 9.6(H) 4.3 - 8.3 minutes 10/28/2024 12:30 PM EDT [facility] Citrated Kaolin Maximum Amplitude (TEGECMOLIVER) 51.2(L) 52.0 - 69.0 mm 10/28/2024 12:30 PM EDT [facility] Citrated Functional Fibrinogen W/Heparinase Maximum Amplitude(TEGEC MOLIVER) 21.6 15.0 - 34.0 mm 10/28/2024 12:30 PM EDT [facility] Citrated Rapid Teg W/Heparinase Maximum Amplitude (TEGECMOLIVER) 49.3(L) 53.0 - 69.0 mm 10/28/2024 12:30 PM EDT [facility] Citrated Kaolin w/Heparinase Percent Lysis (TEGECMOLIVER) 0.0 0.0 - 3.2 % 10/28/2024 12:30 PM EDT [facility] Whole Blood (Citrate) 10/28/2024 11:09 AM EDT 10/28/2024 11:14 AM EDT us Kemar Sahni MD LAB BLOOD ORDERABLES Final Result [facility] [address] [place] [address], [facility] * (ABNORMAL) CBC (10/28/2024 10:21 AM EDT) WBC 4.1 3.8 - 10.8 10E3/uL 10/28/2024 10:41 AM EDT [facility] RBC 2.30(L) 4.20 - 5.80 10E6/uL 10/28/2024 10:41 AM EDT [facility] Hemoglobin 7.1(L) 13.2 - 17.1 g/dL 10/28/2024 10:41 AM EDT [facility] Hematocrit 20.4(L) 38.5 - 50.0 % 10/28/2024 10:41 AM EDT [facility] MCV 88.5 80.0 - 100.0 fL 10/28/2024 10:41 AM EDT [facility] MCH 30.7 27.0 - 33.0 pg 10/28/2024 10:41 AM EDT [facility] MCHC 34.7 32.0 - 36.0 g/dL 10/28/2024 10:41 AM EDT [facility] RDW 18.7(H) 11.0 - 15.0 % 10/28/2024 10:41 AM EDT [facility] Platelets 37(L) 140 - 400 10E3/uL 10/28/2024 10:41 AM EDT [facility] Comment: CNV Specimen checked for clots. None detected. MPV 7.6 7.5 - 11.5 fL 10/28/2024 10:41 AM EDT [facility] Whole Blood 10/28/2024 10:2 1 AM EDT 10/28/2024 10:29 AM EDT Carlos Marks MD LAB BLOOD ORDERABLES Final Result [facility] [address] * POC Glucose Monitoring Device (10/28/2024 9:07 AM EDT) [facility] POC Glucose Monitoring Device 97 70 - 100 mg/dL 10/28/2024 9:08 AM EDT [facility] Blood 10/28/2024 9:07 AM EDT 10/28/2024 9:08 AM EDT Semaj Mcnair III, MD POINT OF CARE TEST ORDERABLES Final Result [facility] [address] * (ABNORMAL) Tacrolimus level (10/28/2024 8:20 AM EDT) Tacrolimus (LC-MS) <1.0(L) 3.0 - 15.0 ng/mL 10/28/2024 2:02 PM EDT [facility] Comment:Performed via liquid chromatography tandem mass spectrometry. Detection limit: 1 ng/mL. Individual target concentrations may vary due to target organ and time after transplant. This test has been developed and its performance characteristics determined by [facility] which is certified under [...] EDT 10/28/2024 8:29 AM EDT Priti Geiger [facility] BLOOD ORDERABLES Final Re sult [facility] [address] [place] [address]. [address] * (ABNORMAL) POC Glucose Monitoring Device (10/28/2024 8:10 AM EDT) [facility] POC Glucose Monitoring Device 102(H) 70 - 100 mg/dL 10/28/2024 8:11 AM EDT [facility] Blood 10/28/2024 8:10 AM EDT 10/28/2024 8:11 AM EDT Semaj Mcnair III, MD POINT OF CARE TEST ORDERABLES Final Result [facility] [address] [facility]. [address] * POC Glucose Monitoring Device (10/28/2024 6:17 AM EDT) [facility] POC Glucose Monitoring Device 100 70 - 100 mg/dL 10/28/2024 6:18 AM EDT [facility] Blood 10/28/2024 6:17 AM EDT 10/28/2024 6:18 AM EDT Semaj Mcnair III, MD POINT OF CARE TEST ORDERABLES Final Result [facility] [address] * Prepare Platelets, leukoreduced (10/28/2024 6:15 AM EDT) Product Code T9436T24 HCLL Unit Number [id number] HCLL Dispense Status Presumed Transfused_PT HCLL Blood Expiration Date HCLL Coding System [id number] HCLL Product Code M5435P41 HCLL Unit Number [id number] HCLL Dispense Status Presumed Transfused_PT HCLL Blood Expiration Date [id number] HCLL Coding System [id number] HCLL us Attending Provider Unknown BLOOD BANK PRODUCT OR DERABLES Final Result HCLL * Prepare Fresh Frozen Plasma (10/28/2024 6:15 AM EDT) Product Code E6460E90 HCLL Unit Number [id number] HCLL Dispense Status Released from Crossmatch_RE HCLL Blood Expiration Date HCLL Coding System [id number] HCLL Product Code A5419F31 HCLL Unit Number [id number] HCLL Dispense Status Presumed Transfused_PT HCLL Blood Expiration Date HCLL Coding System [id number] HCLL Product Code Z8964L74 HCLL Unit Number [id number] HCLL Dispense Status Released from Crossmatch_RE HCLL Blood Expiration Date HCLL Coding System [id number] HCLL Product Code U9508Y45 HCLL Unit Number [id number] HCLL Dispense Status Presumed Transfused_PT HCLL Blood Expiration Date [id number] HCLL Coding System [id number] HCLL Product Code O0721D90 HCLL Unit Number [id number] HCLL Dispense Status Released from Crossmatch_RE HCLL Blood Expiration Date [id number] HCLL Coding System [id number] HCLL us Attending Provider Unknown BLOOD BANK PRODUCT OR DERABLES Final Result Performing Organization Address City/[facility]/ZIP Co de Phone Number HCLL * Prepare RBC, leukoreduced (10/28/2024 6:15 AM EDT) Product Code T5470Y12 HCLL Unit Number [id number] HCLL Dispense Status Released from Crossmatch_RE HCLL Blood Expiration Date [id number] HCLL Coding System LSPM956 HCLL Product Code Y5385D53 HCLL Unit Number [id number] HCLL Dispense Status Presumed Transfused_PT HCLL Blood Expiration Date 491058715181 HCLL Coding System [id number] HCLL Product Code C1524P48 HCLL Unit Number [id number] HCLL Dispense Status Released from Crossmatch_RE HCLL Blood Expiration Date 553223441128 HCLL Coding System YRXE318 HCLL Product Code F0716U10 HCLL Unit Number [id number] HCLL Dispense Status Presumed Transfused_PT HCLL Blood Expiration Date 271047572265 HCLL Coding System QHDJ636 HCLL Product Code F8545G76 HCLL Unit Number [id number] HCLL Dispense Status Released from Crossmatch_RE HCLL Blood Expiration Date 625828149098 HCLL Coding System [id number] HCLL us Attending Provider Unknown BLOOD BANK PRODUCT OR DERABLES Final Result HCLL * Prepare Platelets, leukoreduced, 1 Units (10/28/2024 6:15 AM EDT) Product Code V5438C19 HCLL Unit Number [id number] HCLL Dispense Status Presumed Transfused_PT HCLL Blood Expiration Date 237189415312 HCLL Coding System WXZB778 HCLL Blood Bank Product John Pina MD BLOOD BANK PRODUCT ORDERABLES F inal Result Performing Organization Address [facility] Co de Phone Number HCLL * Prepare Cryoprecipitate, 1 Units (10/28/2024 6:15 AM EDT) Product Code D3981M42 HCLL Unit Number [id number] HCLL Dispense Status Presumed Transfused_PT HCLL Blood Expiration Date HCLL Coding System NOVP861 HCLL Product Code L4251C70 HCLL Unit Number [id number] HCLL Dispense Status Presumed Transfused_PT HCLL Blood Expiration Date HCLL Coding System NFIO562 HCLL Blood Bank Product John Pina MD BLOOD BANK PRODUCT ORDERABLES F inal Result Performing Organization Address [facility] de Phone Number HCLL * Prepare Fresh Frozen Plasma, 1 Units (10/28/2024 6:15 AM EDT) Product Code X9831N54 HCLL Unit Number [id number] HCLL Dispense Status Presumed Transfused_PT HCLL Blood Expiration Date 934707291428 HCLL Coding System SRTF951 HCLL Blood Bank Product John Pina MD BLOOD BANK PRODUCT ORDERABLES F inal Result Performing Organization Address [facility] de Phone Number HCLL * Prepare Cryoprecipitate, 1 Units (10/28/2024 6:15 AM EDT) Product Code L9983S49 HCLL Unit Number [id number] HCLL Dispense Status Presumed Transfused_PT HCLL Blood Expiration Date HCLL Coding System SKEP936 HCLL Product Code F8957V12 HCLL Unit Number [id number] HCLL Dispense Status Presumed Transfused_PT HCLL Blood Expiration Date HCLL Coding System LMUS734 HCLL Product Code J9545F93 HCLL Unit Number [id number] HCLL Dispense Status Presumed Transfused_PT HCLL Blood Expiration Date HCLL Coding System IWPL061 HCLL Product Code O3318P96 HCLL Unit Number [id number] HCLL Dispense Status Presumed Transfused_PT HCLL Blood Expiration Date HCLL Coding System WTLF911 HCLL Blood Bank Product John Pina MD BLOOD BANK PRODUCT ORDERABLES F inal Result Performing Organization Address City/[facility]/ZIP Co de Phone Number HCLL * (ABNORMAL) POC Glucose Monitoring Device (10/28/2024 4:55 AM EDT) POC Glucose Monitoring Device 104(H) 70 - 100 mg/dL 10/28/2024 4:57 AM EDT [facility] Blood 10/28/2024 4:55 AM EDT 10/28/2024 4:57 AM EDT Semaj Mcnair III, MD POINT OF CARE TEST ORDERABLES Final Result [facility] [address] * TEG-Bypass/ECMO/Liver HN (Factor function, Platelet/Fibrin Clot Strength w/Clot Breakdown, Heparinase In All Channels) (10/28/2024 4:13 AM EDT) Citrated Kaolin Reaction Time (TEGECMOLIVER) 7.2 4.6 - 9.1 minutes 10/28/2024 5:38 AM EDT [facility] Citrated Kaolin W/Heparinase Reaction Time (TEGECMOLIVER) 7.8 4.3 - 8.3 minutes 10/28/2024 5:38 AM EDT [facility] Citrated Kaolin Maximum Amplitude (TEGECMOLIVER) 53.0 52.0 - 69.0 mm 10/28/2024 5:38 AM EDT [facility] Citrated Functional Fibrinogen W/Heparinase Maximum Amplitude(TEGEC MOLIVER) 21.4 15.0 - 34.0 mm 10/28/2024 5:38 AM EDT [facility] Citrated Rapid Teg W/Heparinase Maximum Amplitude (TEGECMOLIVER) 54.7 53.0 - 69.0 mm 10/28/2024 5:38 AM EDT [facility] Citrated Kaolin w/Heparinase Percent Lysis (TEGECMOLIVER) 0.0 0.0 - 3.2 % 10/28/2024 5:38 AM EDT [facility] Whole Blood (Citrate) 10/28/2024 4:13 AM EDT 10/28/2024 4:28 AM EDT Kemar Sahni MD LAB BLOOD ORDERABLES Final Result [facility] [address] * Protime-INR (10/28/2024 4:13 AM EDT) Protime 14.6 12.1 - 15.1 seconds 10/28/2024 4:53 AM EDT [facility] INR 1.1 0.9 - 1.1 10/28/2024 4:53 AM EDT [facility] Comment: RECOMMENDED THERAPEUTIC RANGES USING INR : Stable oral anticoagulant therapy: 2.0 - 3.0 Mechanical prosthetic heart valve: 2.5 - 3.5 Recurrent acute myocardial infarction: 2.5 - 3.5 Plasma 10/28/2024 4:13 AM EDT 10/28/2024 4:41 AM EDT Kemar Sahni MD LAB BLOOD ORDERABLES Final Result [facility] [address] [facility]. [address] * Magnesium (10/28/2024 4:13 AM EDT) Magnesium 2.2 1.5 - 2.5 mg/dL 10/28/2024 5:15 AM EDT [facility] Plasma 10/28/2024 4:13 AM EDT 10/28/2024 4:41 AM EDT us Kemar Sahni MD LAB BLOOD ORDERABLES Final Result Performing Organization Address City/[facility]/ZIP Co de Phone Number [facility] [address] * (ABNORMAL) Hepatic Function Panel (10/28/2024 4:13 AM EDT) Total Bilirubin 2.3(H) 0.0 - 1.5 mg/dL 10/28/2024 5:15 AM EDT [facility] Bilirubin, Direct 1.67(H) 0.00 - 0.40 mg/dL 10/28/2024 5:15 AM EDT [facility] AST 44(H) 13 - 39 U/L 10/28/2024 5:15 AM EDT [facility] ALT 101(H) 7 - 52 U/L 10/28/2024 5:15 AM EDT [facility] Alkaline Phosphatase 26(L) 36 - 125 U/L 10/28/2024 5:15 AM EDT [facility] Total Protein 4.5(L) 6.4 - 8.9 g/dL 10/28/2024 5:15 AM EDT [facility] Albumin 3.1(L) 3.5 - 5.7 g/dL 10/28/2024 5:15 AM EDT [facility] Bilirubin, Indirect 0.63 0.00 - 1.10 mg/dL 10/28/2024 5:15 AM EDT [facility] Plasma 10/28/2024 4:13 AM EDT 10/28/2024 4:41 AM EDT us Kemar Sahni MD LAB BLOOD ORDERABLES Final Result [facility] [address] [place] [address], [facility] * (ABNORMAL) Renal Function Panel w/EGFR (10/28/2024 4:13 AM EDT) Sodium 142 133 - 146 mmol/L 10/28/2024 5:15 AM EDT [facility] Potassium 3.5 3.5 - 5.3 mmol/L 10/28/2024 5:15 AM EDT [facility] Chloride 111(H) 98 - 110 mmol/L 10/28/2024 5:15 AM EDT [facility] CO2 22 21 - 33 mmol/L 10/28/2024 5:15 AM EDT [facility] Anion Gap 9 3 - 16 mmol/L 10/28/2024 5:15 AM EDT [facility] BUN 58(H) 7 - 25 mg/dL 10/28/2024 5:15 AM EDT [facility] Creatinine 2.24(H) 0.60 - 1.30 mg/dL 10/28/2024 5:15 AM EDT [facility] Glucose 103(H) 70 - 100 mg/dL 10/28/2024 5:15 AM EDT [facility] Calcium 9.1 8.6 - 10.3 mg/dL 10/28/2024 5:15 AM EDT [facility] Phosphorus 4.8(H) 2.1 - 4.7 mg/dL 10/28/2024 5:15 AM EDT [facility] Albumin 3.1(L) 3.5 - 5.7 g/dL 10/28/2024 5:15 AM EDT [facility] Osmolality, Calculated 310(H) 278 - 305 mOsm/kg 10/28/2024 5:15 AM EDT [facility] EGFR 37 10/28/2024 5:15 AM EDT [facility] Comment:As of 2021, the estimated [...] Sahni MD LAB BLOOD ORDERABLES Final Result [facility] [address] [place] [address], [facility] * (ABNORMAL) CBC (10/28/2024 4:13 AM EDT) WBC 4.5 3.8 - 10.8 10E3/uL 10/28/2024 5:09 AM EDT [facility] RBC 2.39(L) 4.20 - 5.80 10E6/uL 10/28/2024 5:09 AM EDT [facility] Hemoglobin 7.3(L) 13.2 - 17.1 g/dL 10/28/2024 5:09 AM EDT [facility] Hematocrit 21.0(L) 38.5 - 50.0 % 10/28/2024 5:09 AM EDT [facility] MCV 87.8 80.0 - 100.0 fL 10/28/2024 5:09 AM EDT [facility] MCH 30.5 27.0 - 33.0 pg 10/28/2024 5:09 AM EDT [facility] MCHC 34.7 32.0 - 36.0 g/dL 10/28/2024 5:09 AM EDT [facility] RDW 18.7(H) 11.0 - 15.0 % 10/28/2024 5:09 AM EDT [facility] Platelets 38(L) 140 - 400 10E3/uL 10/28/2024 5:09 AM EDT [facility] Comment: CNV Specimen checked for clots. None detected. MPV 7.6 7.5 - 11.5 fL 10/28/2024 5:09 AM EDT [facility] Whole Blood 10/28/2024 4:13 AM EDT 10/28/2024 4:41 AM EDT Kemar Sahni MD LAB BLOOD ORDERABLES Final Result [facility] [address] [facility]. [address] * (ABNORMAL) POC Glucose Monitoring Device (10/28/2024 4:04 AM EDT) POC Glucose Monitoring Device 103(H) 70 - 100 mg/dL 10/28/2024 4:05 AM EDT [facility] Blood 10/28/2024 4:04 AM EDT 10/28/2024 4:05 AM EDT Semaj Mcnair III, MD POINT OF CARE TEST ORDERABLES Final Result Performing Organization Address [facility] Co de Phone Number [facility] [address] [facility]. [address] * (ABNORMAL) POC Glucose Monitoring Device (10/28/2024 3:00 AM EDT) POC Glucose Monitoring Device 106(H) 70 - 100 mg/dL 10/28/2024 3:01 AM EDT [facility] Blood 10/28/2024 3:00 AM EDT 10/28/2024 3:01 AM EDT Semaj Mcnair III, MD POINT OF CARE TEST ORDERABLES Final Result Performing Organization Address City/[facility]/ZIP Co de Phone Number [facility] [address] [facility]. [address] * (ABNORMAL) POC Glucose Monitoring Device (10/28/2024 2:32 AM EDT) POC Glucose Monitoring Device 109(H) 70 - 100 mg/dL 10/28/2024 2:33 AM EDT [facility] Blood 10/28/2024 2:32 AM EDT 10/28/2024 2:33 AM EDT us Semaj Mcnair III, MD POINT OF CARE TEST ORDERABLES Final Result Performing Organization Address City/[facility]/ZIP Co de Phone Number [facility] [address] [facility]. [address] * (ABNORMAL) POC Glucose Monitoring Device (10/28/2024 2:14 AM EDT) POC Glucose Monitoring Device 115(H) 70 - 100 mg/dL 10/28/2024 2:15 AM EDT [facility] Blood 10/28/2024 2:14 AM EDT 10/28/2024 2:15 AM EDT us Semaj Mcnair III, MD POINT OF CARE TEST ORDERABLES Final Result Performing Organization Address [facility] Co de Phone Number [facility] [address] [place] [address]. [address] * (ABNORMAL) POC Glucose Monitoring Device (10/28/2024 2:03 AM EDT) POC Glucose Monitoring Device 101(H) 70 - 100 mg/dL 10/28/2024 2:04 AM EDT [facility] Blood 10/28/2024 2:03 AM EDT 10/28/2024 2:04 AM EDT us Semaj Mcnair III, MD POINT OF CARE TEST ORDERABLES Final Result Performing Organization Address City/[facility] Co de Phone Number [facility] [address] * Transfuse RBC Transfusion Rate: Per [...] In All Channels) (10/28/2024 12:05 AM EDT) [facility] Citrated Kaolin Reaction Time (TEGECMOLIVER) 7.5 4.6 - 9.1 minutes 10/28/2024 1:22 AM EDT [facility] Citrated Kaolin W/Heparinase Reaction Time (TEGECMOLIVER) 7.7 4.3 - 8.3 minutes 10/28/2024 1:22 AM EDT [facility] Citrated Kaolin Maximum Amplitude (TEGECMOLIVER) 54.4 52.0 - 69.0 mm 10/28/2024 1:22 AM EDT [facility] Citrated Functional Fibrinogen W/Heparinase Maximum Amplitude(TEGEC MOLIVER) 20.4 15.0 - 34.0 mm 10/28/2024 1:22 AM EDT [facility] Citrated Rapid Teg W/Heparinase Maximum Amplitude (TEGECMOLIVER) 51.0(L) 53.0 - 69.0 mm 10/28/2024 1:22 AM EDT [facility] Citrated Kaolin w/Heparinase Percent Lysis (TEGECMOLIVER) 0.0 0.0 - 3.2 % 10/28/2024 1:22 AM EDT [facility] Whole Blood (Citrate) 10/28/2024 12:05 AM EDT 10/28/2024 12:09 AM EDT Kemar Sahni MD LAB BLOOD ORDERABLES Final Result [facility] [address] * Magnesium (10/28/2024 12:05 AM EDT) Magnesium 2.2 1.5 - 2.5 mg/dL 10/28/2024 1:59 AM EDT [facility] Plasma 10/28/2024 12:0 5 AM EDT 10/28/2024 12:11 AM EDT Kemar Sahni MD LAB BLOOD ORDERABLES Final Result [facility] [address] * (ABNORMAL) Renal Function Panel w/EGFR (10/28/2024 12:05 AM EDT) Sodium 144 133 - 146 mmol/L 10/28/2024 1:59 AM EDT [facility] Potassium 3.4(L) 3.5 - 5.3 mmol/L 10/28/2024 1:59 AM EDT [facility] Chloride 112(H) 98 - 110 mmol/L 10/28/2024 1:59 AM EDT [facility] CO2 19(L) 21 - 33 mmol/L 10/28/2024 1:59 AM EDT [facility] Anion Gap 13 3 - 16 mmol/L 10/28/2024 1:59 AM EDT [facility] BUN 59(H) 7 - 25 mg/dL 10/28/2024 1:59 AM EDT [facility] Creatinine 2.42(H) 0.60 - 1.30 mg/dL 10/28/2024 1:59 AM EDT [facility] Glucose 118(H) 70 - 100 mg/dL 10/28/2024 1:59 AM EDT [facility] Calcium 9.0 8.6 - 10.3 mg/dL 10/28/2024 1:59 AM EDT [facility] Phosphorus 5.3(H) 2.1 - 4.7 mg/dL 10/28/2024 1:59 AM EDT [facility] Albumin 3.1(L) 3.5 - 5.7 g/dL 10/28/2024 1:59 AM EDT [facility] Osmolality, Calculated 316(H) 278 - 305 mOsm/kg 10/28/2024 1:59 AM EDT [facility] EGFR 34 10/28/2024 1:59 AM EDT [facility] Comment:As of 2021, the estimated [...] Sahni MD LAB BLOOD ORDERABLES Final Result [facility] [address] * (ABNORMAL) Differential (10/28/2024 12:05 AM EDT) Neutrophils Relative 88.6(H) 40.0 - 80.0 % 10/28/2024 12:41 AM EDT [facility] Lymphocytes Relative 2.5(L) 15.0 - 45.0 % 10/28/2024 12:41 AM EDT [facility] Monocytes Relative 6.1 0.0 - 12.0 % 10/28/2024 12:41 AM EDT [facility] Eosinophils Relative 2.4 0.0 - 8.0 % 10/28/2024 12:41 AM EDT [facility] Basophils Relative 0.4 0.0 - 1.0 % 10/28/2024 12:41 AM EDT [facility] nRBC 0 0 - 0 /100 WBC 10/28/2024 12:41 AM EDT [facility] Neutrophils Absolute 4,341 1,520 - 8,640 /uL 10/28/2024 12:41 AM EDT [facility] Lymphocytes Absolute 123(L) 570 - 4,860 /uL 10/28/2024 12:41 AM EDT [facility] Monocytes Absolute 299 0 - 1,296 /uL 10/28/2024 12:41 AM EDT [facility] Eosinophils Absolute 118 0 - 864 /uL 10/28/2024 12:41 AM EDT [facility] Basophils Absolute 20 0 - 108 /uL 10/28/2024 12:41 AM EDT [facility] Whole Blood 10/28/2024 12:0 5 AM EDT 10/28/2024 12:11 AM EDT Kemar Sahni MD LAB BLOOD ORDERABLES Final Result Performing Organization Address City/State/[facility] Co de Phone Number [facility] [address] * (ABNORMAL) CBC (10/28/2024 12:05 AM EDT) WBC 4.9 3.8 - 10.8 10E3/uL 10/28/2024 12:41 AM EDT [facility] RBC 2.18(L) 4.20 - 5.80 10E6/uL 10/28/2024 12:41 AM EDT [facility] Hemoglobin 6.7(L) 13.2 - 17.1 g/dL 10/28/2024 12:41 AM EDT [facility] Hematocrit 19.2(L) 38.5 - 50.0 % 10/28/2024 12:41 AM EDT [facility] MCV 87.8 80.0 - 100.0 fL 10/28/2024 12:41 AM EDT [facility] MCH 30.6 27.0 - 33.0 pg 10/28/2024 12:41 AM EDT [facility] MCHC 34.8 32.0 - 36.0 g/dL 10/28/2024 12:41 AM EDT [facility] RDW 19.6(H) 11.0 - 15.0 % 10/28/2024 12:41 AM EDT [facility] Platelets 45(L) 140 - 400 10E3/uL 10/28/2024 12:41 AM EDT [facility] Comment: CNV Specimen checked for clots. None detected. MPV 7.8 7.5 - 11.5 fL 10/28/2024 12:41 AM EDT [facility] Whole Blood 10/28/2024 12:0 5 AM EDT 10/28/2024 12:11 AM EDT Kemar Sahni MD LAB BLOOD ORDERABLES Final Result Performing Organization Address City/[facility]/ZIP Co de Phone Number [facility] [address] * (ABNORMAL) POC Glucose Monitoring Device (10/28/2024 12:03 AM EDT) POC Glucose Monitoring Device 122(H) 70 - 100 mg/dL 10/28/2024 12:04 AM EDT [facility] Blood 10/28/2024 12:0 3 AM EDT 10/28/2024 12:04 AM EDT Semaj Mcnair III, MD POINT OF CARE TEST ORDERABLES Final Result Performing Organization Address City/[facility]/ZIP Co de Phone Number [facility] [address] [facility]. [address] * (ABNORMAL) POC Glucose Monitoring Device (10/27/2024 10:03 PM EDT) POC Glucose Monitoring Device 127(H) 70 - 100 mg/dL 10/27/2024 10:03 PM EDT [facility] Blood 10/27/2024 10:0 3 PM EDT 10/27/2024 10:03 PM EDT us Semaj Mcnair III, MD POINT OF CARE TEST ORDERABLES Final Result [facility] [address] [facility]. [address] * (ABNORMAL) POC Glucose Monitoring Device (10/27/2024 8:06 PM EDT) POC Glucose Monitoring Device 128(H) 70 - 100 mg/dL 10/27/2024 8:45 PM EDT [facility] Blood 10/27/2024 8:06 PM EDT 10/27/2024 8:45 PM EDT us Semaj Mcnair III, MD POINT OF CARE TEST ORDERABLES Final Result Performing Organization Address [facility]/ZIP Co de Phone Number [facility] [address] [facility]. [address] * (ABNORMAL) POC Glucose Monitoring Device (10/27/2024 6:00 PM EDT) POC Glucose Monitoring Device 128(H) 70 - 100 mg/dL 10/27/2024 6:00 PM EDT [facility] Blood 10/27/2024 6:00 PM EDT 10/27/2024 6:00 PM EDT Semaj Mcnair III, MD POINT OF CARE TEST ORDERABLES Final Result Performing Organization Address City/[facility]/ZIP Co de Phone Number [facility] [address] [facility]. [address] * Lactic Acid, STAT (10/27/2024 5:41 PM EDT) Lactate 0.5 0.5 - 2.2 mmol/L 10/27/2024 6:28 PM EDT [facility] Plasma 10/27/2024 5:41 PM EDT 10/27/2024 5:49 PM EDT Narrative [facility] - 10/27/2024 6:28 PM EDT Redraw John Moreno MD LAB BLOOD ORDERABLES Final R esult [facility] [address] [facility] [place] [address], [facility] * (ABNORMAL) Hepatic Function Panel, STAT (10/27/2024 5:13 PM EDT) Total Bilirubin 1.7(H) 0.0 - 1.5 mg/dL 10/27/2024 5:50 PM EDT [facility] Bilirubin, Direct 1.17(H) 0.00 - 0.40 mg/dL 10/27/2024 5:50 PM EDT [facility] AST 60(H) 13 - 39 U/L 10/27/2024 5:50 PM EDT [facility] ALT 134(H) 7 - 52 U/L 10/27/2024 5:50 PM EDT [facility] Alkaline Phosphatase 27(L) 36 - 125 U/L 10/27/2024 5:50 PM EDT [facility] Total Protein 4.1(L) 6.4 - 8.9 g/dL 10/27/2024 5:50 PM EDT [facility] Albumin 2.9(L) 3.5 - 5.7 g/dL 10/27/2024 5:50 PM EDT [facility] Bilirubin, Indirect 0.53 0.00 - 1.10 mg/dL 10/27/2024 5:50 PM EDT [facility] Plasma 10/27/2024 5:13 PM EDT 10/27/2024 5:23 PM EDT us Shay Plata MD LAB BLOOD ORDERABLES Final Result [facility] [address] [facility] [address], [facility] * (ABNORMAL) TEG-Bypass/ECMO/Liver HN (Factor function, Platelet/Fibrin Clot Strength w/Clot Breakdown, Heparinase In All Channels) (10/27/2024 5:13 PM EDT) Citrated Kaolin Reaction Time (TEGECMOLIVER) 8.0 4.6 - 9.1 minutes 10/27/2024 6:56 PM EDT [facility] Citrated Kaolin W/Heparinase Reaction Time (TEGECMOLIVER) 6.8 4.3 - 8.3 minutes 10/27/2024 6:56 PM EDT [facility] Citrated Kaolin Maximum Amplitude (TEGECMOLIVER) 55.4 52.0 - 69.0 mm 10/27/2024 6:56 PM EDT [facility] Citrated Functional Fibrinogen W/Heparinase Maximum Amplitude(TEGEC MOLIVER) 22.9 15.0 - 34.0 mm 10/27/2024 6:56 PM EDT [facility] Citrated Rapid Teg W/Heparinase Maximum Amplitude (TEGECMOLIVER) 50.8(L) 53.0 - 69.0 mm 10/27/2024 6:56 PM EDT [facility] Citrated Kaolin w/Heparinase Percent Lysis (TEGECMOLIVER) 0.1 0.0 - 3.2 % 10/27/2024 6:56 PM EDT [facility] Whole Blood (Citrate) 10/27/2024 5:13 PM EDT 10/27/2024 5:20 PM EDT us Kemar Sahni MD LAB BLOOD ORDERABLES Final Result [facility] [address] [place] [address], [facility] * (ABNORMAL) Protime-INR (10/27/2024 5:13 PM EDT) Protime 15.2(H) 12.1 - 15.1 seconds 10/27/2024 5:40 PM EDT [facility] INR 1.1 0.9 - 1.1 10/27/2024 5:40 PM EDT [facility] Comment: RECOMMENDED THERAPEUTIC RANGES USING INR : Stable oral anticoagulant therapy: 2.0 - 3.0 Mechanical prosthetic heart valve: 2.5 - 3.5 Recurrent acute myocardial infarction: 2.5 - 3.5 Plasma 10/27/2024 5:13 PM EDT 10/27/2024 5:23 PM EDT Kemar Sahni MD LAB BLOOD ORDERABLES Final Result [facility] [address] [facility]. [address] * Magnesium (10/27/2024 5:13 PM EDT) Magnesium 2.4 1.5 - 2.5 mg/dL 10/27/2024 5:53 PM EDT [facility] Plasma 10/27/2024 5:13 PM EDT 10/27/2024 5:23 PM EDT Kemar Sahni MD LAB BLOOD ORDERABLES Final Result [facility] [address] [facility]. [address] * (ABNORMAL) Hepatic Function Panel (10/27/2024 5:13 PM EDT) Total Bilirubin 1.7(H) 0.0 - 1.5 mg/dL 10/27/2024 5:53 PM EDT [facility] Bilirubin, Direct 1.10(H) 0.00 - 0.40 mg/dL 10/27/2024 5:53 PM EDT [facility] AST 62(H) 13 - 39 U/L 10/27/2024 5:53 PM EDT [facility] ALT 134(H) 7 - 52 U/L 10/27/2024 5:53 PM EDT [facility] Alkaline Phosphatase 27(L) 36 - 125 U/L 10/27/2024 5:53 PM EDT [facility] Total Protein 4.1(L) 6.4 - 8.9 g/dL 10/27/2024 5:53 PM EDT [facility] Albumin 2.9(L) 3.5 - 5.7 g/dL 10/27/2024 5:53 PM EDT [facility] Bilirubin, Indirect 0.60 0.00 - 1.10 mg/dL 10/27/2024 5:53 PM EDT [facility] Plasma 10/27/2024 5:13 PM EDT 10/27/2024 5:23 PM EDT Kemar Sahni MD LAB BLOOD ORDERABLES Final Result [facility] [address] [place] [id number], [facility] * (ABNORMAL) Renal Function Panel w/EGFR (10/27/2024 5:13 PM EDT) Sodium 142 133 - 146 mmol/L 10/27/2024 5:53 PM EDT [facility] Potassium 3.4(L) 3.5 - 5.3 mmol/L 10/27/2024 5:53 PM EDT [facility] Chloride 109 98 - 110 mmol/L 10/27/2024 5:53 PM EDT [facility] CO2 22 21 - 33 mmol/L 10/27/2024 5:53 PM EDT [facility] Anion Gap 11 3 - 16 mmol/L 10/27/2024 5:53 PM EDT [facility] BUN 61(H) 7 - 25 mg/dL 10/27/2024 5:53 PM EDT [facility] Creatinine 2.42(H) 0.60 - 1.30 mg/dL 10/27/2024 5:53 PM EDT [facility] Glucose 125(H) 70 - 100 mg/dL 10/27/2024 5:53 PM EDT [facility] Calcium 8.8 8.6 - 10.3 mg/dL 10/27/2024 5:53 PM EDT [facility] Phosphorus 5.7(H) 2.1 - 4.7 mg/dL 10/27/2024 5:53 PM EDT [facility] Albumin 2.9(L) 3.5 - 5.7 g/dL 10/27/2024 5:53 PM EDT [facility] Osmolality, Calculated 313(H) 278 - 305 mOsm/kg 10/27/2024 5:53 PM EDT [facility] EGFR 34 10/27/2024 5:53 PM EDT [facility] Comment:As of 2021, the estimated [...] Sahni MD LAB BLOOD ORDERABLES Final Result [facility] [address] * (ABNORMAL) CBC (10/27/2024 5:13 PM EDT) WBC 4.9 3.8 - 10.8 10E3/uL 10/27/2024 6:14 PM EDT [facility] RBC 2.44(L) 4.20 - 5.80 10E6/uL 10/27/2024 6:14 PM EDT [facility] Hemoglobin 7.4(L) 13.2 - 17.1 g/dL 10/27/2024 6:14 PM EDT [facility] Hematocrit 21.4(L) 38.5 - 50.0 % 10/27/2024 6:14 PM EDT [facility] MCV 87.6 80.0 - 100.0 fL 10/27/2024 6:14 PM EDT [facility] MCH 30.3 27.0 - 33.0 pg 10/27/2024 6:14 PM EDT [facility] MCHC 34.6 32.0 - 36.0 g/dL 10/27/2024 6:14 PM EDT [facility] RDW 19.6(H) 11.0 - 15.0 % 10/27/2024 6:14 PM EDT [facility] Platelets 47(L) 140 - 400 10E3/uL 10/27/2024 6:14 PM EDT [facility] Comment: CNV Specimen checked for clots. None detected. MPV 8.1 7.5 - 11.5 fL 10/27/2024 6:14 PM EDT [facility] Whole Blood 10/27/2024 5:13 PM EDT 10/27/2024 5:23 PM EDT Kemar Sahni MD LAB BLOOD ORDERABLES Final Result [facility] [address] [facility]. [address] * (ABNORMAL) POC Glucose Monitoring Device (10/27/2024 3:57 PM EDT) [facility] POC Glucose Monitoring Device 131(H) 70 - 100 mg/dL 10/27/2024 3:58 PM EDT [facility] Blood 10/27/2024 3:57 PM EDT 10/27/2024 3:58 PM EDT Semaj Mcnair III, MD POINT OF CARE TEST ORDERABLES Final Result Performing Organization Address City/[facility]/ZIP Co de Phone Number [facility] [address] * (ABNORMAL) CBC, STAT (10/27/2024 2:40 PM EDT) WBC 5.8 3.8 - 10.8 10E3/uL 10/27/2024 2:54 PM EDT [facility] RBC 2.43(L) 4.20 - 5.80 10E6/uL 10/27/2024 2:54 PM EDT [facility] Hemoglobin 7.5(L) 13.2 - 17.1 g/dL 10/27/2024 2:54 PM EDT [facility] Hematocrit 21.5(L) 38.5 - 50.0 % 10/27/2024 2:54 PM EDT [facility] MCV 88.2 80.0 - 100.0 fL 10/27/2024 2:54 PM EDT [facility] MCH 30.7 27.0 - 33.0 pg 10/27/2024 2:54 PM EDT [facility] MCHC 34.8 32.0 - 36.0 g/dL 10/27/2024 2:54 PM EDT [facility] RDW 19.1(H) 11.0 - 15.0 % 10/27/2024 2:54 PM EDT [facility] Platelets 50(L) 140 - 400 10E3/uL 10/27/2024 2:54 PM EDT [facility] MPV 7.5 7.5 - 11.5 fL 10/27/2024 2:54 PM EDT [facility] Whole Blood 10/27/2024 2:40 PM EDT 10/27/2024 2:44 PM EDT us John Moreno MD LAB BLOOD ORDERABLES Final R esult [facility] [address] [place] [address], [facility] * (ABNORMAL) Blood Gas, Arterial, STAT (10/27/2024 2:40 PM EDT) O2 Sat, Arterial 98 10/27/2024 2:46 PM EDT [facility] FIO2 RA 10/27/2024 2:46 PM EDT [facility] pH, Arterial 7.37 7.35 - 7.45 10/27/2024 2:46 PM EDT [facility] pCO2, Arterial 35 35 - 45 mm Hg 10/27/2024 2:46 PM EDT [facility] pO2, Arterial 92 80 - 100 mm Hg 10/27/2024 2:46 PM EDT [facility] HCO3, Arterial 21(L) 22 - 26 mmol/L 10/27/2024 2:46 PM EDT [facility] CO2 Content,Arteri al 21(L) 23 - 27 mmol/L 10/27/2024 2:46 PM EDT [facility] Base Excess, Arterial -4.6(L) -2.0 - 3.0 mmol/L 10/27/2024 2:46 PM EDT [facility] %HBO2, Arterial 95.4 95.0 - 98.0 % 10/27/2024 2:46 PM EDT [facility] Carboxyhemoglo bin, Arterial 1.6 % 10/27/2024 2:46 PM EDT [facility] Comment: CARBOXYHEMOGLOBIN (CO) REFERENCE RANGES: Non-Smokers: <2 % Smokers: <8 % TOXIC: >20 % Methemoglobin, Arterial 1.0 0.0 - 1.5 % 10/27/2024 2:46 PM EDT [facility] Reduced hemoglobin, Arterial 2.1 0.0 - 5.0 % 10/27/2024 2:46 PM EDT [facility] Blood, Arterial 10/27/2024 2 :40 PM EDT 10/27/2024 2:44 PM EDT Narrative [facility] - 10/27/2024 2:46 PM EDT Post extubation John Moreno MD LAB BLOOD ORDERABLES Final R esult [facility] [address] * (ABNORMAL) POC Glucose Monitoring Device (10/27/2024 2:06 PM EDT) POC Glucose Monitoring Device 134(H) 70 - 100 mg/dL 10/27/2024 2:06 PM EDT [facility] Blood 10/27/2024 2:06 PM EDT 10/27/2024 2:06 PM EDT Semaj Mcnair III, MD POINT OF CARE TEST ORDERABLES Final Result [facility] [address] * (ABNORMAL) Blood gas, arterial (10/27/2024 12:35 PM EDT) O2 Sat, Arterial 99 10/27/2024 12:46 PM EDT [facility] FIO2 SBT 30% 10/27/2024 12:46 PM EDT [facility] pH, Arterial 7.35 7.35 - 7.45 10/27/2024 12:46 PM EDT [facility] pCO2, Arterial 37 35 - 45 mm Hg 10/27/2024 12:46 PM EDT [facility] pO2, Arterial 182(H) 80 - 100 mm Hg 10/27/2024 12:46 PM EDT [facility] HCO3, Arterial 21(L) 22 - 26 mmol/L 10/27/2024 12:46 PM EDT [facility] CO2 Content,Arteri al 22(L) 23 - 27 mmol/L 10/27/2024 12:46 PM EDT [facility] Base Excess, Arterial -4.8(L) -2.0 - 3.0 mmol/L 10/27/2024 12:46 PM EDT [facility] %HBO2, Arterial 96.3 95.0 - 98.0 % 10/27/2024 12:46 PM EDT [facility] Carboxyhemoglo bin, Arterial 1.7 % 10/27/2024 12:46 PM EDT [facility] Comment: CARBOXYHEMOGLOBIN (CO) REFERENCE RANGES: Non-Smokers: <2 % Smokers: <8 % TOXIC: >20 % Methemoglobin, Arterial 1.4 0.0 - 1.5 % 10/27/2024 12:46 PM EDT [facility] Reduced hemoglobin, Arterial 0.6 0.0 - 5.0 % 10/27/2024 12:46 PM EDT [facility] Blood, Arterial 10/27/2024 1 2:35 PM EDT 10/27/2024 12:42 PM EDT Narrative [facility] - 10/27/2024 12:46 PM EDT Please obtain post SBT us Shay Sifuentes MD LAB BLOOD ORDERABLES Final Resu lt [facility] [address] [place] [address], [facility] * (ABNORMAL) TEG-Bypass/ECMO/Liver HN (Factor function, Platelet/Fibrin Clot Strength w/Clot Breakdown, Heparinase In All Channels) (10/27/2024 12:07 PM EDT) Citrated Kaolin Reaction Time (TEGECMOLIVER) 7.9 4.6 - 9.1 minutes 10/27/2024 1:24 PM EDT [facility] Citrated Kaolin W/Heparinase Reaction Time (TEGECMOLIVER) 8.3 4.3 - 8.3 minutes 10/27/2024 1:24 PM EDT [facility] Citrated Kaolin Maximum Amplitude (TEGECMOLIVER) 52.0 52.0 - 69.0 mm 10/27/2024 1:24 PM EDT [facility] Citrated Functional Fibrinogen W/Heparinase Maximum Amplitude(TEGEC MOLIVER) 20.1 15.0 - 34.0 mm 10/27/2024 1:24 PM EDT [facility] Citrated Rapid Teg W/Heparinase Maximum Amplitude (TEGECMOLIVER) 49.4(L) 53.0 - 69.0 mm 10/27/2024 1:24 PM EDT [facility] Citrated Kaolin w/Heparinase Percent Lysis (TEGECMOLIVER) 0.0 0.0 - 3.2 % 10/27/2024 1:24 PM EDT [facility] Whole Blood (Citrate) 10/27/2024 12:07 PM EDT 10/27/2024 12:09 PM EDT Kemar Sahni MD LAB BLOOD ORDERABLES Final Result Performing Organization Address City/State/[facility] Co de Phone Number [facility] [address] * (ABNORMAL) POC Glucose Monitoring Device (10/27/2024 12:01 PM EDT) POC Glucose Monitoring Device 121(H) 70 - 100 mg/dL 10/27/2024 12:02 PM EDT [facility] Blood 10/27/2024 12:0 1 PM EDT 10/27/2024 12:01 PM EDT Semaj Mcnair III, MD POINT OF CARE TEST ORDERABLES Final Result Performing Organization Address [facility] Co de Phone Number [facility] [address] * (ABNORMAL) POC Glucose Monitoring Device (10/27/2024 10:59 AM EDT) POC Glucose Monitoring Device 126(H) 70 - 100 mg/dL 10/27/2024 11:10 AM EDT [facility] Blood 10/27/2024 10:5 9 AM EDT 10/27/2024 11:10 AM EDT us Semaj Mcnair III, MD POINT OF CARE TEST ORDERABLES Final Result Performing Organization Address [facility] de Phone Number [facility] [address] * ECG 12 lead (MUSE) (10/27/2024 10:17 AM EDT) 10/27/2024 10:1 7 AM EDT Narrative MUSE - 10/27/2024 2:51 PM EDT Ventricular Rate: 91 BPM Atrial Rate: 91 BPM P-R Interval: 168 ms QRS Duration: 90 ms QT: 274 ms QTc: 337 ms P [place]: 60 degrees R [place]: -30 degrees T [place]: -15 degrees Diagnosis Line: NORMAL SINUS RHYTHM ^ LEFT AXIS DEVIATION, LEFT ANTERIOR HEMIBLOCK ^ NONSPECIFIC T WAVE CHANGE ^ ABNORMAL ECG ^ ^ Confirmed by MD ROLLY, [facility] ([id number]) on 10/27/2024 2:51:52 PM us Shay Sifuentes MD ECG ORDERABLES Final Result Performing Organization Address [facility] Co de Phone Number MUSE * (ABNORMAL) POC Glucose Monitoring Device (10/27/2024 10:00 AM EDT) POC Glucose Monitoring Device 121(H) 70 - 100 mg/dL 10/27/2024 10:01 AM EDT [facility] Blood 10/27/2024 10:0 0 AM EDT 10/27/2024 10:01 AM EDT Semaj Mcniar III, MD POINT OF CARE TEST ORDERABLES Final Result [facility] [address] [place] [address], [facility] * US Renal Transplant (10/27/2024 9:51 AM [...] US ORDERABLES Final Result * US Duplex [id number]-[id number] Comp (10/27/2024 9:51 AM EDT) Anatomical Region [...] EXAM: US ABDOMEN LIMITED EXAM: US DUPLEX [id number] COMPLETE INDICATION: Post-op liver transplant COMPARISON: None [...] absent.. Pancreas: Obscured by overlying bowel gas. [place] right kidney: 12.5 cm in length. Normal [...] EXAM: US ABDOMEN LIMITED EXAM: US DUPLEX [id number] COMPLETE INDICATION: Post-op liver transplant COMPARISON: None [...] absent.. Pancreas: Obscured by overlying bowel gas. [place] right kidney: 12.5 cm in length. Normal [...] EXAM: US ABDOMEN LIMITED EXAM: US DUPLEX [id number] COMPLETE INDICATION: Post-op liver transplant COMPARISON: None [...] absent.. Pancreas: Obscured by overlying bowel gas. [place] right kidney: 12.5 cm in length. Normal [...] EXAM: US ABDOMEN LIMITED EXAM: US DUPLEX [id number] COMPLETE INDICATION: Post-op liver transplant COMPARISON: None [...] absent.. Pancreas: Obscured by overlying bowel gas. [place] right kidney: 12.5 cm in length. Normal [...] Glucose Monitoring Device (10/27/2024 9:05 AM EDT) [facility] POC Glucose Monitoring Device 118(H) 70 - 100 mg/dL 10/27/2024 9:06 AM EDT [facility] Blood 10/27/2024 9:05 AM EDT 10/27/2024 9:06 AM EDT us Semaj Mcnair III, MD POINT OF CARE TEST ORDERABLES Final Result [facility] [address] [place] [address], [facility] * X-ray Portable Chest (10/27/2024 8:58 AM [...] - 15.1 seconds 10/27/2024 8:35 AM EDT [facility] INR 1.2(H) 0.9 - 1.1 10/27/2024 8:35 AM EDT [facility] Comment: RECOMMENDED THERAPEUTIC RANGES USING INR : Stable oral anticoagulant therapy: 2.0 - 3.0 Mechanical prosthetic heart valve: 2.5 - 3.5 Recurrent acute myocardial infarction: 2.5 - 3.5 Plasma 10/27/2024 8:16 AM EDT 10/27/2024 8:20 AM EDT John Moreno MD LAB BLOOD ORDERABLES Final R esult Performing Organization Address City/[facility] Co de Phone Number [facility] [address] * Magnesium (10/27/2024 8:00 AM EDT) Magnesium 1.8 1.5 - 2.5 mg/dL 10/27/2024 10:50 AM EDT [facility] Plasma 10/27/2024 8:00 AM EDT 10/27/2024 10:31 AM EDT Kemar Sahni MD LAB BLOOD ORDERABLES Final Result [facility] [address] [place] [address], [facility] * (ABNORMAL) Renal Function Panel w/EGFR (10/27/2024 8:00 AM EDT) Sodium 142 133 - 146 mmol/L 10/27/2024 10:18 AM EDT [facility] Potassium 3.0(L) 3.5 - 5.3 mmol/L 10/27/2024 10:18 AM EDT [facility] Chloride 109 98 - 110 mmol/L 10/27/2024 10:18 AM EDT [facility] CO2 21 21 - 33 mmol/L 10/27/2024 10:18 AM EDT [facility] Anion Gap 12 3 - 16 mmol/L 10/27/2024 10:18 AM EDT [facility] BUN 59(H) 7 - 25 mg/dL 10/27/2024 10:18 AM EDT [facility] Creatinine 2.54(H) 0.60 - 1.30 mg/dL 10/27/2024 10:18 AM EDT [facility] Glucose 111(H) 70 - 100 mg/dL 10/27/2024 10:18 AM EDT [facility] Calcium 9.1 8.6 - 10.3 mg/dL 10/27/2024 10:18 AM EDT [facility] Phosphorus 5.5(H) 2.1 - 4.7 mg/dL 10/27/2024 10:18 AM EDT [facility] Albumin 3.0(L) 3.5 - 5.7 g/dL 10/27/2024 10:18 AM EDT [facility] Osmolality, Calculated 311(H) 278 - 305 mOsm/kg 10/27/2024 10:18 AM EDT [facility] EGFR 32 10/27/2024 10:18 AM EDT [facility] Comment:As of 2021, the estimated [...] M, Olivia DC, Emerita ND, Madelyn [place], Feilcia [place], et al. A Unifying Approach for GFR Estimation: Recommendations of the NKF-ASN Task Force on Reassessing the inclusion of Race in Diagnosing Kidney Disease. Am J Kidney Dis. 2020. Plasma 10/27/2024 8:00 AM EDT 10/27/2024 9:58 AM EDT us Kemar Sahni MD LAB BLOOD ORDERABLES Final Result [facility] [address] * (ABNORMAL) Hepatic Function Panel, STAT (10/27/2024 8:00 AM EDT) Total Bilirubin 1.3 0.0 - 1.5 mg/dL 10/27/2024 8:51 AM EDT [facility] Bilirubin, Direct 0.93(H) 0.00 - 0.40 mg/dL 10/27/2024 8:51 AM EDT [facility] AST 88(H) 13 - 39 U/L 10/27/2024 8:51 AM EDT [facility] ALT 149(H) 7 - 52 U/L 10/27/2024 8:51 AM EDT [facility] Alkaline Phosphatase 26(L) 36 - 125 U/L 10/27/2024 8:51 AM EDT [facility] Total Protein 4.0(L) 6.4 - 8.9 g/dL 10/27/2024 8:51 AM EDT [facility] Albumin 3.0(L) 3.5 - 5.7 g/dL 10/27/2024 8:51 AM EDT [facility] Bilirubin, Indirect 0.37 0.00 - 1.10 mg/dL 10/27/2024 8:51 AM EDT [facility] Plasma 10/27/2024 8:00 AM EDT 10/27/2024 8:20 AM EDT Semaj Mcnair III, MD LAB BLOOD ORDERABLE S Final Result Performing Organization Address City/[facility]/ZIP Co de Phone Number [facility] [address] [facility]. [address] * (ABNORMAL) Lactic Acid, STAT (10/27/2024 8:00 AM EDT) Lactate 0.4(L) 0.5 - 2.2 mmol/L 10/27/2024 8:43 AM EDT [facility] Plasma 10/27/2024 8:00 AM EDT 10/27/2024 8:20 AM EDT Semaj Mcnair III, MD LAB BLOOD ORDERABLE S Final Result Performing Organization Address [facility] [facility] de Phone Number [facility] [address] [facility]. [address] * (ABNORMAL) Blood Gas, Arterial, STAT (10/27/2024 8:00 AM EDT) O2 Sat, Arterial 100 10/27/2024 8:23 AM EDT [facility] pH, Arterial 7.36 7.35 - 7.45 10/27/2024 8:23 AM EDT [facility] pCO2, Arterial 37 35 - 45 mm Hg 10/27/2024 8:23 AM EDT [facility] pO2, Arterial 245(H) 80 - 100 mm Hg 10/27/2024 8:23 AM EDT [facility] HCO3, Arterial 22 22 - 26 mmol/L 10/27/2024 8:23 AM EDT [facility] CO2 Content,Arteri al 22(L) 23 - 27 mmol/L 10/27/2024 8:23 AM EDT [facility] Base Excess, Arterial -4.2(L) -2.0 - 3.0 mmol/L 10/27/2024 8:23 AM EDT [facility] %HBO2, Arterial 96.5 95.0 - 98.0 % 10/27/2024 8:23 AM EDT [facility] Carboxyhemoglo bin, Arterial 2.2 % 10/27/2024 8:23 AM EDT [facility] Comment: CARBOXYHEMOGLOBIN (CO) REFERENCE RANGES: Non-Smokers: <2 % Smokers: <8 % TOXIC: >20 % Methemoglobin, Arterial 1.2 0.0 - 1.5 % 10/27/2024 8:23 AM EDT [facility] Reduced hemoglobin, Arterial 0.0 0.0 - 5.0 % 10/27/2024 8:23 AM EDT [facility] Blood, Arterial 10/27/2024 8 :00 AM EDT 10/27/2024 8:19 AM EDT Narrative [facility] - 10/27/2024 8:23 AM EDT Specimen is beyond 15 minutes from time of collection. Results may be compromised. Review results critically. Kemar Sahni MD LAB BLOOD ORDERABLES Final Result [facility] [address] [address], [facility] * (ABNORMAL) TEG-Bypass/ECMO/Liver HN (Factor function, Platelet/Fibrin Clot Strength w/Clot Breakdown, Heparinase In All Channels) (10/27/2024 8:00 AM EDT) [facility] Citrated Kaolin Reaction Time (TEGECMOLIVER) 7.8 4.6 - 9.1 minutes 10/27/2024 9:39 AM EDT [facility] Citrated Kaolin W/Heparinase Reaction Time (TEGECMOLIVER) 8.0 4.3 - 8.3 minutes 10/27/2024 9:39 AM EDT [facility] Citrated Kaolin Maximum Amplitude (TEGECMOLIVER) 52.7 52.0 - 69.0 mm 10/27/2024 9:39 AM EDT [facility] Citrated Functional Fibrinogen W/Heparinase Maximum Amplitude(TEGEC MOLIVER) 19.0 15.0 - 34.0 mm 10/27/2024 9:39 AM EDT [facility] Citrated Rapid Teg W/Heparinase Maximum Amplitude (TEGECMOLIVER) 49.5(L) 53.0 - 69.0 mm 10/27/2024 9:39 AM EDT [facility] Citrated Kaolin w/Heparinase Percent Lysis (TEGECMOLIVER) 0.0 0.0 - 3.2 % 10/27/2024 9:39 AM EDT [facility] Whole Blood (Citrate) 10/27/2024 8:00 AM EDT 10/27/2024 8:19 AM EDT Kemar Sahni MD LAB BLOOD ORDERABLES Final Result Performing Organization Address [facility] de Phone Number [facility] [address] [facility]. [address] * (ABNORMAL) Katie-Watkins virus VCA IgG Antibody (10/27/2024 8:00 AM EDT) EBV VCA IgG Positive( A) Negative 10/27/2024 11:30 AM EDT [facility] Comment:Presence of detectab le VCA IgG antibodies. 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 EBV IGG NUM 314.00(H) 0.00 - 17.99 U/mL 10/27/2024 11:30 AM EDT [facility] Serum 10/27/2024 8:00 AM EDT 10/27/2024 8:20 AM EDT Kemar Sahni MD LAB BLOOD ORDERABLES Final Result Performing Organization Address [facility] de Phone Number [facility] [address] [facility]. [address] * Hemoglobin A1c (10/27/2024 8:00 AM EDT) Hemoglobin A1C 5.0 4.0 - 5.6 % 10/27/2024 11:12 AM EDT [facility] Comment: Hemoglobin A1c Interpretation Guidelines: [...] Organization Address City/[facility]/ZIP Co de Phone Number [facility] [address] * (ABNORMAL) POC Glucose Monitoring Device (10/27/2024 7:59 AM EDT) [facility] Signature POC Glucose Monitoring Device 113(H) 70 - 100 mg/dL 10/27/2024 7:59 AM EDT [facility] Blood 10/27/2024 7:59 AM EDT 10/27/2024 7:59 AM EDT Semaj Mcnair III, MD POINT OF CARE TEST ORDERABLES Final Result Performing Organization Address [facility] de Phone Number [facility] [address] * X-ray Abdomen AP view (10/27/2024 [...] Units (10/27/2024 6:16 AM EDT) Product Code A5234R26 HCLL Unit Number [id number] HCLL Dispense Status Presumed Transfused_PT HCLL Blood Expiration Date [id number] HCLL Coding System IXKT040 HCLL Product Code P5848K47 HCLL Unit Number [id number] HCLL Dispense Status Presumed Transfused_PT HCLL Blood Expiration Date 342427534880 HCLL Coding System [id number] HCLL Blood Bank Product John Pina MD BLOOD BANK PRODUCT ORDERABLES F inal Result Performing Organization Address [facility] Co de Phone Number HCLL * Prepare Platelets, leukoreduced, 1 Units (10/27/2024 6:16 AM EDT) Product Code Z8008U46 HCLL Unit Number [id number] HCLL Dispense Status Presumed Transfused_PT HCLL Blood Expiration Date 524052577889 HCLL Coding System ACLE343 HCLL Blood Bank Product Eber Quinones MD BLOOD BANK PRODUCT ORDER PAL Final Result Performing Organization Address [facility] de Phone Number HCLL * Prepare Cryoprecipitate, 1 Units (10/27/2024 6:16 AM EDT) Product Code Y8754Z38 HCLL Unit Number [id number] HCLL Dispense Status Presumed Transfused_PT HCLL Blood Expiration Date HCLL Coding System GNLU428 HCLL Product Code G4713L31 HCLL Unit Number [id number] HCLL Dispense Status Presumed Transfused_PT HCLL Blood Expiration Date 752677449305 HCLL Coding System QNJU509 HCLL Blood Bank Product Eber Quinones MD BLOOD BANK PRODUCT ORDER PAL Final Result Performing Organization Address City/[facility] Co de Phone Number HCLL * Prepare Fresh Frozen Plasma, 10 Units (10/27/2024 6:16 AM EDT) Product Code A8718C97 HCLL Unit Number [id number] HCLL Dispense Status Presumed Transfused_PT HCLL Blood Expiration Date 210351043640 HCLL Coding System YBJA214 HCLL Product Code M4122C44 HCLL Unit Number [id number] HCLL Dispense Status Presumed Transfused_PT HCLL Blood Expiration Date 680718228369 HCLL Coding System XNEB720 HCLL Product Code C1313X83 HCLL Unit Number [id number] HCLL Dispense Status Presumed Transfused_PT HCLL Blood Expiration Date 091162595332 HCLL Coding System YZIR490 HCLL Product Code F2970S14 HCLL Unit Number [id number] HCLL Dispense Status Presumed Transfused_PT HCLL Blood Expiration Date HCLL Coding System CRCN028 HCLL Product Code J1694S67 HCLL Unit Number [id number] HCLL Dispense Status Released from Crossmatch_RE HCLL Blood Expiration Date 240075828091 HCLL Coding System QJBC246 HCLL Product Code A0464K08 HCLL Unit Number [id number] HCLL Dispense Status Released from Crossmatch_RE HCLL Blood Expiration Date HCLL Coding System WGDN370 HCLL Product Code O6296Z54 HCLL Unit Number [id number] HCLL Dispense Status Presumed Transfused_PT HCLL Blood Expiration Date HCLL Coding System TGFK494 HCLL Product Code I3158X23 HCLL Unit Number [id number] HCLL Dispense Status Presumed Transfused_PT HCLL Blood Expiration Date 882334064295 HCLL Coding System BYSC244 HCLL Product Code B7761L78 HCLL Unit Number [id number] HCLL Dispense Status Presumed Transfused_PT HCLL Blood Expiration Date HCLL Coding System ICIF098 HCLL Product Code A1344A81 HCLL Unit Number [id number] HCLL Dispense Status Presumed Transfused_PT HCLL Blood Expiration Date 762589086932 HCLL Coding System ZYHT043 HCLL Blood Bank Product us Leandra Og MD BLOOD BANK PRODUCT ORD ERABLES Final Result [facility] * Prepare Platelets, leukoreduced, 1 Units (10/27/2024 6:16 AM EDT) Product Code P5263T60 HCLL Unit Number [id number] HCLL Dispense Status Presumed Transfused_PT HCLL Blood Expiration Date 838029743194 HCLL Coding System MEXV760 HCLL Blood Bank Product us Ben Blake MD BLOOD BANK PRODUCT ORDERABLES Final Result Performing Organization Address [facility] de Phone Number HCLL * Prepare Fresh Frozen Plasma (10/27/2024 6:15 AM EDT) Product Code I4941D57 HCLL Unit Number [id number] HCLL Dispense Status Presumed Transfused_PT HCLL Blood Expiration Date HCLL Coding System SUSF810 HCLL Product Code V8589L98 HCLL Unit Number [id number] HCLL Dispense Status Released from Crossmatch_RE HCLL Blood Expiration Date 272995700551 HCLL Coding System BDRQ975 HCLL Product Code G9757J73 HCLL Unit Number [id number] HCLL Dispense Status Presumed Transfused_PT HCLL Blood Expiration Date HCLL Coding System VYFG808 HCLL Product Code V8405Q46 HCLL Unit Number [id number] HCLL Dispense Status Presumed Transfused_PT HCLL Blood Expiration Date HCLL Coding System WPPU503 HCLL Product Code T1644T25 HCLL Unit Number [id number] HCLL Dispense Status Released from Crossmatch_RE HCLL Blood Expiration Date HCLL Coding System HMKV355 HCLL us Attending Provider Unknown BLOOD BANK PRODUCT OR DERABLES Final Result Performing Organization Address [facility] Co de Phone Number HCLL * Prepare RBC, leukoreduced (10/27/2024 6:15 AM EDT) Product Code M2890O32 HCLL Unit Number [id number] HCLL Dispense Status Presumed Transfused_PT HCLL Blood Expiration Date HCLL Coding System RTAB119 HCLL Product Code F4977N69 HCLL Unit Number [id number] HCLL Dispense Status Released from Crossmatch_RE HCLL Blood Expiration Date HCLL Coding System BTDU113 HCLL Product Code P5012U43 HCLL Unit Number [id number] HCLL Dispense Status Released from Crossmatch_RE HCLL Blood Expiration Date 516022101308 HCLL Coding System HECI479 HCLL Product Code G8314G97 HCLL Unit Number [id number] HCLL Dispense Status Released from Crossmatch_RE HCLL Blood Expiration Date 425658046710 HCLL Coding System CLUX399 HCLL Product Code L2514U74 HCLL Unit Number [id number] HCLL Dispense Status Released from Crossmatch_RE HCLL Blood Expiration Date 495469908915 HCLL Coding System FZCN267 HCLL Attending Provider Unknown BLOOD BANK PRODUCT OR DERABLES Final Result HC[facility] * Prepare RBC, leukoreduced, 10 Units (10/27/2024 6:15 AM EDT) Product Code Z9211B49 HCLL Unit Number [id number] HCLL Dispense Status Presumed Transfused_PT HCLL Blood Expiration Date HCLL Coding System MIUX532 HCLL Product Code Y6960N11 HCLL Unit Number [id number] HCLL Dispense Status Presumed Transfused_PT HCLL Blood Expiration Date HCLL Coding System OFKC210 HCLL Product Code F8039K64 HCLL Unit Number [id number] HCLL Dispense Status Presumed Transfused_PT HCLL Blood Expiration Date HCLL Coding System NWGS890 HCLL Product Code A4283Y60 HCLL Unit Number [id number] HCLL Dispense Status Presumed Transfused_PT HCLL Blood Expiration Date 470958237510 HCLL Coding System NEKW090 HCLL Product Code Y5270T88 HCLL Unit Number [id number] HCLL Dispense Status Presumed Transfused_PT HCLL Blood Expiration Date HCLL Coding System KBSU961 HCLL Product Code F3481Q69 HCLL Unit Number [id number] HCLL Dispense Status Presumed Transfused_PT HCLL Blood Expiration Date HCLL Coding System FCFT300 HCLL Product Code V7467U98 HCLL Unit Number [id number] HCLL Dispense Status Presumed Transfused_PT HCLL Blood Expiration Date HCLL Coding System SIFD368 HCLL Product Code W1946E51 HCLL Unit Number [id number] HCLL Dispense Status Presumed Transfused_PT HCLL Blood Expiration Date HCLL Coding System YMMD813 HCLL Product Code C1926H23 HCLL Unit Number [id number] HCLL Dispense Status Presumed Transfused_PT HCLL Blood Expiration Date HCLL Coding System SLKP585 HCLL Product Code J5701G30 HCLL Unit Number [id number] HCLL Dispense Status Presumed Transfused_PT HCLL Blood Expiration Date 655450079626 HCLL Coding System SKDZ460 HCLL Blood Bank Product us Leandra Og MD BLOOD BANK PRODUCT ORD ERABLES Final Result HC[facility] * Transfuse Platelets (10/27/2024 6:09 AM EDT) us Ben Blake MD NURSING TREATMENT ORDERABLES - BLOOD ADMIN Final Result * (ABNORMAL) Arterial Blood Gas Panel (10/27/2024 6:09 AM EDT) O2Sat (ABGP) 100 10/27/2024 6:17 AM [facility] pH (ABGP) 7.30(L) 7.35 - 7.45 10/27/2024 6:17 AM [facility] PCO2 (ABGP) 41 35 - 45 mm Hg 10/27/2024 6:17 AM [facility] PO2 (ABGP) 192(H) 80 - 100 mm Hg 10/27/2024 6:17 AM [facility] HCO3 (ABGP) 21(L) 22 - 26 mmol/L 10/27/2024 6:17 AM [facility] CO2 Content (ABGP) 22(L) 23 - 27 mmol/L 10/27/2024 6:17 AM [facility] Base Excess (ABGP) -5.7(L) -2.0 - 3.0 mmol/L 10/27/2024 6:17 AM [facility] Sodium (ABGP) 138 136 - 146 mEq/L 10/27/2024 6:17 AM [facility] Potassium (ABGP) 3.3(L) 3.5 - 5.0 mEq/L 10/27/2024 6:17 AM [facility] Comment:In the event of in-v itro hemolysis, potassium results may be falsely elevated. Always interpret lab results in conjunction with clinical findings. If hemolysis is suspected, a serum sample may be collected for repeat assessment of potassium. Calcium, Free (ABGP) 5.28 4.50 - 5.30 mg/dL 10/27/2024 6:17 AM [facility] Glucose (ABGP) 112(H) 70 - 100 mg/dL 10/27/2024 6:17 AM [facility] Comment:There is interferenc e with whole blood glucose results on this method when Hematocrit is <25% or >60%. HCT (ABGP) 20.0(L) 40.0 - 52.0 % 10/27/2024 6:17 AM [facility] HGB (ABGP) 6.5(L) 14.0 - 18.0 g/dL 10/27/2024 6:17 AM [facility] %HBO2 (ABGP) 96.8 95.0 - 98.0 % 10/27/2024 6:17 AM [facility] Carboxyhgb (ABGP) 2.1 % 025 6:17 AM EDT [facility] Comment: CARBOXYHEMOGLOBIN (CO) REFERENCE RANGES: Non-Smokers: <2 % Smokers: <8 % TOXIC: >20 % Methemoglobin (ABGP) 1.0 0.0 - 1.5 % 10/27/2024 6:17 AM EDT [facility] Reduced Hemoglobin (ABGP) 0.2 0.0 - 5.0 % 10/27/2024 6:17 AM EDT [facility] Lactic Acid (ABGP) 0.4(L) 0.5 - 1.6 mmol/L 10/27/2024 6:17 AM EDT [facility] Blood, Arterial 10/27/2024 6 :09 AM EDT 10/27/2024 6:14 AM EDT us Ben Blake MD LAB BLOOD ORDERABLES Final Re sult [facility] [address] * Transfuse Fresh Frozen Plasma (10/27/2024 [...] Glucose Monitoring Device (10/27/2024 4:46 AM EDT) [facility] POC Glucose Monitoring Device 124(H) 70 - 100 mg/dL 10/27/2024 4:47 AM EDT [facility] Blood 10/27/2024 4:46 AM EDT 10/27/2024 4:47 AM EDT us Semaj Mcnair III, MD POINT OF CARE TEST ORDERABLES Final Result [facility] [address] [id number], [facility] * Transfuse Platelets (10/27/2024 4:24 AM EDT) [...] O2Sat (ABGP) 100 10/27/2024 3:21 AM EDT [facility] pH (ABGP) 7.32(L) 7.35 - 7.45 10/27/2024 3:21 AM EDT [facility] PCO2 (ABGP) 38 35 - 45 mm Hg 10/27/2024 3:21 AM EDT [facility] PO2 (ABGP) 176(H) 80 - 100 mm Hg 10/27/2024 3:21 AM EDT [facility] HCO3 (ABGP) 20(L) 22 - 26 mmol/L 10/27/2024 3:21 AM EDT [facility] CO2 Content (ABGP) 21(L) 23 - 27 mmol/L 10/27/2024 3:21 AM EDT [facility] Base Excess (ABGP) -6.0(L) -2.0 - 3.0 mmol/L 10/27/2024 3:21 AM EDT [facility] Sodium (ABGP) 138 136 - 146 mEq/L 10/27/2024 3:21 AM EDT [facility] Potassium (ABGP) 3.0(L) 3.5 - 5.0 mEq/L 10/27/2024 3:21 AM EDT [facility] Comment:In the event of in-v itro hemolysis, potassium results may be falsely elevated. Always interpret lab results in conjunction with clinical findings. If hemolysis is suspected, a serum sample may be collected for repeat assessment of potassium. Calcium, Free (ABGP) 5.28 4.50 - 5.30 mg/dL 10/27/2024 3:21 AM EDT [facility] Glucose (ABGP) 108(H) 70 - 100 mg/dL 10/27/2024 3:21 AM EDT [facility] Comment:There is interferenc e with whole blood glucose results on this method when Hematocrit is <25% or >60%. HCT (ABGP) 22.0(L) 40.0 - 52.0 % 10/27/2024 3:21 AM EDT [facility] HGB (ABGP) 7.3(L) 14.0 - 18.0 g/dL 10/27/2024 3:21 AM EDT [facility] %HBO2 (ABGP) 97.3 95.0 - 98.0 % 10/27/2024 3:21 AM EDT [facility] Carboxyhgb (ABGP) 1.9 % 025 3:21 AM EDT [facility] Comment: CARBOXYHEMOGLOBIN (CO) REFERENCE RANGES: Non-Smokers: <2 % Smokers: <8 % TOXIC: >20 % Methemoglobin (ABGP) 0.8 0.0 - 1.5 % 10/27/2024 3:21 AM EDT [facility] Reduced Hemoglobin (ABGP) 0.0 0.0 - 5.0 % 10/27/2024 3:21 AM EDT [facility] Lactic Acid (ABGP) 0.3(L) 0.5 - 1.6 mmol/L 10/27/2024 3:21 AM EDT [facility] Blood, Arterial 10/27/2024 3 :07 AM EDT 10/27/2024 3:14 AM EDT us Ben Blake MD LAB BLOOD ORDERABLES Final Re sult [facility] [address] [place] [address], [facility] * Surgical Pathology Exam (10/27/2024 2:38 AM EDT) Tissue LEFT KIDNEY STRUCTURE / Unknown 10/27/2024 2:38 AM EDT Narrative [facility] - 10/27/2024 12:00 AM EDT CASE: [id number] PATIENT: BLAIR GILBERT Clinical History: Transplant kidney with bile duct reconstruction Pre-Operative Diagnosis: Acute kidney injury superimposed on CKD Post-Operative Diagnosis: None Given Specimen(s) Submitted: A. baseline renal biopsy ; B. right lobe liver biopsy; C. left lobe liver biopsy CPT Code(s): 13487 X 1; 38062 X 2; 05000 X 4 Additional Information: FINAL DIAGNOSIS: A. [...] parenchyma, which is entirely submitted in cassette [id number] A1. (NAA Mckeon/rr) B. Received in formalin, labeled with the patient's name Blair Gilbert and right lobe liver biopsy are two green-brown tissue cores measuring 1.8 and 2.0 cm in length, each with a diameter of 0.1 cm, which are entirely submitted between blue biopsy sponges in cassette [id number]. (NAA Mckeon/ns) C. Received in formalin, [...] Pathologist signing this report is located at [facility], [address] [place] [address], [id number], , CLIA ID: [id number] ADDENDUM: A. Kidney, allograft, baseline, wedge biopsy: [...] Pathologist signing this report is located at [facility], [address] [place] [address], [id number], , CLIA ID: [id number] us Kemar Sahni MD PATHOLOGY/CYTOLOGY ORDERABL ES [...] RAL ORDERABLES Final Result Performing Organization Address City/[facility]/ZIP Co de Phone Number [facility] [address] * Fungus culture (10/27/2024 2:15 AM EDT) Culture Result No Fungus Isolated At 4 Weeks [facility] Fluid SPECIMEN FROM KIDNEY / Unknown 10/27/2024 2:15 AM EDT 10/27/2024 4:24 AM EDT Narrative [facility] - 11/24/2024 7:52 AM EDT 1) perfusate Semaj Mcnair III, MD MICROBIOLOGY - GENE RAL ORDERABLES Final Result Performing Organization Address [facility] Co de Phone Number [facility] [address] * Routine Culture plus Stain (10/27/2024 2:15 AM EDT) Gram Stain Result No Polymorphonuclear Leukocytes Seen [facility] Gram Stain Result No Organisms Seen; [facility] Culture Result No Growth After 3 Days [facility] Fluid SPECIMEN FROM KIDNEY / Unknown 10/27/2024 2:15 AM EDT 10/27/2024 4:24 AM EDT Narrative [facility] - 10/30/2024 9:26 AM EDT 1) perfusate Semaj Mcnair III, MD MICROBIOLOGY - GENE RAL ORDERABLES Final Result Performing Organization Address City/[facility]/ZIP Co de Phone Number [facility] [address] * Transfuse Platelets Transfusion Rate: Per [...] - 9.1 minutes 10/27/2024 2:44 AM EDT [facility] Citrated Rapid Teg Maximum Amplitude (TEGHEPARINASE) 42.3(L) 52.0 - 70.0 mm 10/27/2024 2:44 AM EDT [facility] Citrated Functional Fibrinogen Maximum Amplitude (TEGHEPARINASE) 15.0 15.0 - 32.0 mm 10/27/2024 2:44 AM EDT [facility] Citrated Kaolin W/Heparinase Reaction Time (TEGHEPARINASE) 10.5(H) 4.3 - 8.3 minutes 10/27/2024 2:44 AM EDT [facility] Citrated Kaolin K-Time (TEGHEPARINASE) 2.9(A) 0.8 - 2.1 minutes 10/27/2024 2:44 AM EDT [facility] Citrated Kaolin Angle (TEGHEPARINASE) 60.4(A) 63.0 - 78.0 degrees 10/27/2024 2:44 AM EDT [facility] Citrated Kaolin Maximum Amplitude (TEGHEPARINASE) 42.9(L) 52.0 - 69.0 mm 10/27/2024 2:44 AM EDT [facility] Citrated Functional Fibrinogen- Fibrinogen Level (TEGHEPARINASE) 273.7(L) 278.0 - 581.0 mg/dL 10/27/2024 2:44 AM EDT [facility] Whole Blood (Citrate) 10/27/2024 1:51 AM EDT 10/27/2024 2:03 AM EDT John Pina MD LAB BLOOD ORDERABLES Final Resu lt [facility] [address] * (ABNORMAL) POC Glucose Monitoring Device (10/27/2024 1:50 AM EDT) POC Glucose Monitoring Device 121(H) 70 - 100 mg/dL 10/27/2024 1:51 AM EDT [facility] Blood 10/27/2024 1:50 AM EDT 10/27/2024 1:51 AM EDT us Semaj Mcnair III, MD POINT OF CARE TEST ORDERABLES Final Result Performing Organization Address City/[facility]/ZIP Co de Phone Number [facility] [address] * Transfuse Cryoprecipitate Transfusion Rate: Per dept routine (10/27/2024 1:25 AM EDT) us John Pina MD NURSING TREATMENT ORDERABLES - BLOOD ADMIN Final Result Performing Organization Address City/[facility]/ZIP Co de Phone Number EXTERNAL * Transfuse Cryoprecipitate Transfusion Rate: Per dept routine, 1 Units (10/27/2024 1:25 AM EDT) us John Pina MD NURSING TREATMENT ORDERABLES - BLOOD ADMIN Final Result Performing Organization Address City/[facility]/ZIP Co de Phone Number EXTERNAL * (ABNORMAL) POC Glucose Monitoring Device (10/27/2024 1:21 AM EDT) POC Glucose Monitoring Device 123(H) 70 - 100 mg/dL 10/27/2024 1:22 AM EDT [facility] Blood 10/27/2024 1:21 AM EDT 10/27/2024 1:21 AM EDT us Semaj Mcnair III, MD POINT OF CARE TEST ORDERABLES Final Result Performing Organization Address City/[facility]/ZIP Co de Phone Number [facility] [address] * Transfuse Fresh Frozen Plasma Transfusion Rate: Per dept routine (10/27/2024 1:03 AM EDT) us John Pina MD NURSING TREATMENT ORDERABLES - BLOOD ADMIN Final Result Performing Organization Address [facility] de Phone Number EXTERNAL * Transfuse Fresh Frozen Plasma Transfusion Rate: Per dept routine, 1 Units (10/27/2024 1:03 AM EDT) us Jonh Pina MD NURSING TREATMENT ORDERABLES - BLOOD ADMIN Final Result Performing Organization Address [facility] de Phone Number EXTERNAL * Calcium Free, Serum (10/27/2024 12:13 AM EDT) Free Calcium, Ser 5.20 4.40 - 5.40 mg/dL 10/27/2024 12:37 AM EDT [facility] Comment:Free calcium levels vary inversely with pH by approximately 5% for each 0.1 unit of pH change. Assay results have been normalized to pH = 7.40. Serum 10/27/2024 12:1 3 AM EDT 10/27/2024 12:29 AM EDT Narrative [facility] - 10/27/2024 12:37 AM EDT This test has been developed and its performance characteristics determined by [facility] which is certified under [...] Resu lt Performing Organization Address [facility] de Phone Number [facility] [address] [place] [address], [facility] * (ABNORMAL) Blood Gas, Arterial, STAT (10/27/2024 12:13 AM EDT) O2 Sat, Arterial 100 10/27/2024 12:23 AM EDT [facility] FIO2 30 10/27/2024 12:23 AM EDT [facility] pH, Arterial 7.32(L) 7.35 - 7.45 10/27/2024 12:23 AM EDT [facility] pCO2, Arterial 37 35 - 45 mm Hg 10/27/2024 12:23 AM EDT [facility] pO2, Arterial 137(H) 80 - 100 mm Hg 10/27/2024 12:23 AM EDT [facility] HCO3, Arterial 20(L) 22 - 26 mmol/L 10/27/2024 12:23 AM EDT [facility] CO2 Content,Arteri al 20(L) 23 - 27 mmol/L 10/27/2024 12:23 AM EDT [facility] Base Excess, Arterial -6.4(L) -2.0 - 3.0 mmol/L 10/27/2024 12:23 AM EDT [facility] %HBO2, Arterial 96.2 95.0 - 98.0 % 10/27/2024 12:23 AM EDT [facility] Carboxyhemoglo bin, Arterial 1.9 % 10/27/2024 12:23 AM EDT [facility] Comment: CARBOXYHEMOGLOBIN (CO) REFERENCE RANGES: Non-Smokers: <2 % Smokers: <8 % TOXIC: >20 % Methemoglobin, Arterial 1.5 0.0 - 1.5 % 10/27/2024 12:23 AM EDT [facility] Reduced hemoglobin, Arterial 0.4 0.0 - 5.0 % 10/27/2024 12:23 AM EDT [facility] Blood, Arterial 10/27/2024 1 2:13 AM EDT 10/27/2024 12:18 AM EDT us John Pina MD LAB BLOOD ORDERABLES Final Resu lt [facility] [address] [address], [facility] * (ABNORMAL) TEG-Bypass/ECMO/Liver HN (Factor function, Platelet/Fibrin Clot Strength w/Clot Breakdown, Heparinase In All Channels) (10/27/2024 12:13 AM EDT) [facility] Signature Citrated Kaolin Reaction Time (TEGECMOLIVER) 9.1 4.6 - 9.1 minutes 10/27/2024 1:43 AM EDT [facility] Citrated Kaolin W/Heparinase Reaction Time (TEGECMOLIVER) 9.7(H) 4.3 - 8.3 minutes 10/27/2024 1:43 AM EDT [facility] Citrated Kaolin Maximum Amplitude (TEGECMOLIVER) <40.0(L) 52.0 - 69.0 mm 10/27/2024 1:43 AM EDT [facility] Citrated Functional Fibrinogen W/Heparinase Maximum Amplitude(TEGEC MOLIVER) 11.9(L) 15.0 - 34.0 mm 10/27/2024 1:43 AM EDT [facility] Citrated Rapid Teg W/Heparinase Maximum Amplitude (TEGECMOLIVER) 31.6(L) 53.0 - 69.0 mm 10/27/2024 1:43 AM EDT [facility] Citrated Kaolin w/Heparinase Percent Lysis (TEGECMOLIVER) 0.0 0.0 - 3.2 % 10/27/2024 1:43 AM EDT [facility] Whole Blood (Citrate) 10/27/2024 12:13 AM EDT 10/27/2024 12:18 AM EDT Kemar Sahni MD LAB BLOOD ORDERABLES Final Result Performing Organization Address [facility]/ZIP Co de Phone Number [facility] [address] [facility]. [address] * (ABNORMAL) Lactic Acid (10/27/2024 12:13 AM EDT) Lactate 0.2(L) 0.5 - 2.2 mmol/L 10/27/2024 12:59 AM EDT [facility] Plasma 10/27/2024 12:1 3 AM EDT 10/27/2024 12:31 AM EDT Kemar Sahni MD LAB BLOOD ORDERABLES Final Result [facility] [address] * Magnesium (10/27/2024 12:13 AM EDT) Magnesium 1.8 1.5 - 2.5 mg/dL 10/27/2024 12:52 AM EDT [facility] Plasma 10/27/2024 12:1 3 AM EDT 10/27/2024 12:29 AM EDT Kemar Sahni MD LAB BLOOD ORDERABLES Final Result [facility] [address] * (ABNORMAL) Hepatic Function Panel (10/27/2024 12:13 AM EDT) Total Bilirubin 1.6(H) 0.0 - 1.5 mg/dL 10/27/2024 12:52 AM EDT [facility] Bilirubin, Direct 1.17(H) 0.00 - 0.40 mg/dL 10/27/2024 12:52 AM EDT [facility] AST 157(H) 13 - 39 U/L 10/27/2024 12:52 AM EDT [facility] ALT 261(H) 7 - 52 U/L 10/27/2024 12:52 AM EDT [facility] Alkaline Phosphatase 26(L) 36 - 125 U/L 10/27/2024 12:52 AM EDT [facility] Total Protein 3.8(L) 6.4 - 8.9 g/dL 10/27/2024 12:52 AM EDT [facility] Albumin 2.8(L) 3.5 - 5.7 g/dL 10/27/2024 12:52 AM EDT [facility] Bilirubin, Indirect 0.43 0.00 - 1.10 mg/dL 10/27/2024 12:52 AM EDT [facility] Plasma 10/27/2024 12:1 3 AM EDT 10/27/2024 12:29 AM EDT Kemar Sahni MD LAB BLOOD ORDERABLES Final Result Performing Organization Address [facility] Co de Phone Number [facility] [address] * (ABNORMAL) Protime-INR (10/27/2024 12:13 AM EDT) Protime 18.6(H) 12.1 - 15.1 seconds 10/27/2024 12:43 AM EDT [facility] INR 1.5(H) 0.9 - 1.1 10/27/2024 12:43 AM EDT [facility] Comment: RECOMMENDED THERAPEUTIC RANGES USING INR : Stable oral anticoagulant therapy: 2.0 - 3.0 Mechanical prosthetic heart valve: 2.5 - 3.5 Recurrent acute myocardial infarction: 2.5 - 3.5 Plasma 10/27/2024 12:1 3 AM EDT 10/27/2024 12:29 AM EDT Kemar Sahni MD LAB BLOOD ORDERABLES Final Result Performing Organization Address [facility] Co de Phone Number [facility] [address] [facility]. [address] * (ABNORMAL) CBC (10/27/2024 12:13 AM EDT) WBC 5.0 3.8 - 10.8 10E3/uL 10/27/2024 12:59 AM EDT [facility] RBC 2.70(L) 4.20 - 5.80 10E6/uL 10/27/2024 12:59 AM EDT [facility] Hemoglobin 8.5(L) 13.2 - 17.1 g/dL 10/27/2024 12:59 AM EDT [facility] Hematocrit 23.9(L) 38.5 - 50.0 % 10/27/2024 12:59 AM EDT [facility] MCV 88.5 80.0 - 100.0 fL 10/27/2024 12:59 AM EDT [facility] MCH 31.5 27.0 - 33.0 pg 10/27/2024 12:59 AM EDT [facility] MCHC 35.6 32.0 - 36.0 g/dL 10/27/2024 12:59 AM EDT [facility] RDW 20.6(H) 11.0 - 15.0 % 10/27/2024 12:59 AM EDT [facility] Platelets 35(L) 140 - 400 10E3/uL 10/27/2024 12:59 AM EDT [facility] Comment: CNV Specimen checked for clots. None detected. MPV 7.6 7.5 - 11.5 fL 10/27/2024 12:59 AM EDT [facility] Whole Blood 10/27/2024 12:1 3 AM EDT 10/27/2024 12:29 AM EDT us Kemar Sahni MD LAB BLOOD ORDERABLES Final Result [facility] [address] [place] [address], [facility] * (ABNORMAL) Renal Function Panel w/EGFR (10/27/2024 12:13 AM EDT) Sodium 141 133 - 146 mmol/L 10/27/2024 12:52 AM EDT [facility] Potassium 3.2(L) 3.5 - 5.3 mmol/L 10/27/2024 12:52 AM EDT [facility] Chloride 109 98 - 110 mmol/L 10/27/2024 12:52 AM EDT [facility] CO2 21 21 - 33 mmol/L 10/27/2024 12:52 AM EDT [facility] Anion Gap 11 3 - 16 mmol/L 10/27/2024 12:52 AM EDT [facility] BUN 64(H) 7 - 25 mg/dL 10/27/2024 12:52 AM EDT [facility] Creatinine 2.58(H) 0.60 - 1.30 mg/dL 10/27/2024 12:52 AM EDT [facility] Glucose 126(H) 70 - 100 mg/dL 10/27/2024 12:52 AM EDT [facility] Calcium 8.9 8.6 - 10.3 mg/dL 10/27/2024 12:52 AM EDT [facility] Phosphorus 5.3(H) 2.1 - 4.7 mg/dL 10/27/2024 12:52 AM EDT [facility] Albumin 2.8(L) 3.5 - 5.7 g/dL 10/27/2024 12:52 AM EDT [facility] Osmolality, Calculated 312(H) 278 - 305 mOsm/kg 10/27/2024 12:52 AM EDT [facility] EGFR 31 10/27/2024 12:52 AM EDT [facility] Comment:As of 2021, the estimated [...] Sahni MD LAB BLOOD ORDERABLES Final Result [facility] [address] * (ABNORMAL) POC Glucose Monitoring Device (10/27/2024 12:08 AM EDT) POC Glucose Monitoring Device 121(H) 70 - 100 mg/dL 10/27/2024 12:08 AM EDT [facility] Blood 10/27/2024 12:0 8 AM EDT 10/27/2024 12:08 AM EDT Semaj Mcnair III, MD POINT OF CARE TEST ORDERABLES Final Result [facility] [address] [facility] [address], [facility] * (ABNORMAL) POC Glucose Monitoring Device (10/26/2024 11:15 PM EDT) [facility] POC Glucose Monitoring Device 120(H) 70 - 100 mg/dL 10/26/2024 11:15 PM EDT [facility] Blood 10/26/2024 11:1 5 PM EDT 10/26/2024 11:15 PM EDT Semaj Mcnair III, MD POINT OF CARE TEST ORDERABLES Final Result [facility] [address] [facility]. [address] * (ABNORMAL) TEG-Bypass/ECMO/Liver HN (Factor function, Platelet/Fibrin Clot Strength w/Clot Breakdown, Heparinase In All Channels) (10/26/2024 10:36 PM EDT) Citrated Kaolin Reaction Time (TEGECMOLIVER) 10.0(H) 4.6 - 9.1 minutes 10/26/2024 11:53 PM EDT [facility] Citrated Kaolin W/Heparinase Reaction Time (TEGECMOLIVER) 10.2(H) 4.3 - 8.3 minutes 10/26/2024 11:53 PM EDT [facility] Citrated Kaolin Maximum Amplitude (TEGECMOLIVER) <40.0(L) 52.0 - 69.0 mm 10/26/2024 11:53 PM EDT [facility] Citrated Functional Fibrinogen W/Heparinase Maximum Amplitude(TEGEC MOLIVER) 11.3(L) 15.0 - 34.0 mm 10/26/2024 11:53 PM EDT [facility] Citrated Rapid Teg W/Heparinase Maximum Amplitude (TEGECMOLIVER) 41.8(L) 53.0 - 69.0 mm 10/26/2024 11:53 PM EDT [facility] Citrated Kaolin w/Heparinase Percent Lysis (TEGECMOLIVER) 0.0 0.0 - 3.2 % 10/26/2024 11:53 PM EDT [facility] Whole Blood (Citrate) 10/26/2024 10:36 PM EDT 10/26/2024 10:43 PM EDT Kemar Sahni MD LAB BLOOD ORDERABLES Final Result Performing Organization Address City/[facility]/ZIP Co de Phone Number [facility] [address] [place] [address]. [address] * (ABNORMAL) POC Glucose Monitoring Device (10/26/2024 10:14 PM EDT) POC Glucose Monitoring Device 124(H) 70 - 100 mg/dL 10/26/2024 11:11 PM EDT [facility] Blood 10/26/2024 10:1 4 PM EDT 10/26/2024 11:11 PM EDT Semaj Mcnair III, MD POINT OF CARE TEST ORDERABLES Final Result Performing Organization Address [facility] Co de Phone Number [facility] [address] [facility]. [address] * (ABNORMAL) POC Glucose Monitoring Device (10/26/2024 9:16 PM EDT) POC Glucose Monitoring Device 119(H) 70 - 100 mg/dL 10/26/2024 9:18 PM EDT [facility] Blood 10/26/2024 9:16 PM EDT 10/26/2024 9:18 PM EDT Semaj Mcnair III, MD POINT OF CARE TEST ORDERABLES Final Result Performing Organization Address City/[facility] Co de Phone Number [facility] [address] * (ABNORMAL) POC Glucose Monitoring Device (10/26/2024 8:05 PM EDT) POC Glucose Monitoring Device 113(H) 70 - 100 mg/dL 10/26/2024 8:06 PM EDT [facility] Blood 10/26/2024 8:05 PM EDT 10/26/2024 8:06 PM EDT Semaj Mcnair III, MD POINT OF CARE TEST ORDERABLES Final Result Performing Organization Address [facility] Co de Phone Number [facility] [address] * (ABNORMAL) POC Glucose Monitoring Device (10/26/2024 7:02 PM EDT) POC Glucose Monitoring Device 111(H) 70 - 100 mg/dL 10/26/2024 7:03 PM EDT [facility] Blood 10/26/2024 7:02 PM EDT 10/26/2024 7:03 PM EDT Semaj Mcnair III, MD POINT OF CARE TEST ORDERABLES Final Result Performing Organization Address [facility] Co de Phone Number [facility] [address] * Transfuse Cryoprecipitate Transfusion Rate: Per dept routine (10/26/2024 6:39 PM EDT) John Pina MD NURSING TREATMENT ORDERABLES - BLOOD ADMIN Final Result Performing Organization Address City/[facility] Co de Phone Number EXTERNAL * Transfuse Cryoprecipitate Transfusion Rate: Per dept routine, 1 Units (10/26/2024 6:39 PM EDT) John Pina MD NURSING TREATMENT ORDERABLES - BLOOD ADMIN Final Result Performing Organization Address City/[facility] Co de Phone Number EXTERNAL * (ABNORMAL) POC Glucose Monitoring Device (10/26/2024 6:33 PM EDT) POC Glucose Monitoring Device 110(H) 70 - 100 mg/dL 10/26/2024 6:34 PM EDT [facility] Blood 10/26/2024 6:33 PM EDT 10/26/2024 6:34 PM EDT us Semaj Mcnair III, MD POINT OF CARE TEST ORDERABLES Final Result Performing Organization Address [facility] Co de Phone Number [facility] [address] [facility]. [address] * Transfuse Cryoprecipitate Transfusion Rate: Per dept routine (10/26/2024 6:22 PM EDT) us John Pina MD NURSING TREATMENT ORDERABLES - BLOOD ADMIN Final Result Performing Organization Address [facility] Co de Phone Number EXTERNAL * Transfuse Cryoprecipitate Transfusion Rate: Per dept routine, 1 Units (10/26/2024 6:22 PM EDT) us John Pina MD NURSING TREATMENT ORDERABLES - BLOOD ADMIN Final Result Performing Organization Address [facility] Co de Phone Number EXTERNAL * (ABNORMAL) POC Glucose Monitoring Device (10/26/2024 6:17 PM EDT) POC Glucose Monitoring Device 104(H) 70 - 100 mg/dL 10/26/2024 6:18 PM EDT [facility] Blood 10/26/2024 6:17 PM EDT 10/26/2024 6:18 PM EDT us Semaj Mcnair III, MD POINT OF CARE TEST ORDERABLES Final Result Performing Organization Address [facility] Co de Phone Number [facility] [address] [facility]. [address] * (ABNORMAL) POC Glucose Monitoring Device (10/26/2024 4:58 PM EDT) POC Glucose Monitoring Device 115(H) 70 - 100 mg/dL 10/26/2024 4:59 PM EDT [facility] Blood 10/26/2024 4:58 PM EDT 10/26/2024 4:58 PM EDT us Semaj Mcnair III, MD POINT OF CARE TEST ORDERABLES Final Result Performing Organization Address [facility] Co de Phone Number [facility] [address] * (ABNORMAL) Calcium Free, Serum (10/26/2024 4:42 PM EDT) Free Calcium, Ser 5.67(H) 4.40 - 5.40 mg/dL 10/26/2024 4:55 PM EDT [facility] Comment:Free calcium levels vary inversely with pH by approximately 5% for each 0.1 unit of pH change. Assay results have been normalized to pH = 7.40. Serum 10/26/2024 4:42 PM EDT 10/26/2024 4:47 PM EDT [facility] - 10/26/2024 4:55 PM EDT This test has been developed and its performance characteristics determined by [facility] which is certified under [...] Resu lt Performing Organization Address [facility] [place] [address], [facility] * Repeat Crossmatch (Recipient Sample) (10/26/2024 4:42 PM EDT) Repeat Cx - Recipient The request and specimen(s) for this test have been received and transported to the [facility] at [address] [place] [address]. The [facility] will report results directly to the client. 10/26/2024 4:49 PM EDT [facility] Whole Blood 10/26/2024 4:42 PM EDT 10/26/2024 4:49 PM EDT [facility] - 10/26/2024 4:49 PM EDT To be sent to [facility] for Donor UNOS#[id number] cross match with Blair Gilbert Sveta Judge MD LAB BLOOD ORDERABLES Final Resu lt [facility] [address] * (ABNORMAL) Lactic Acid (10/26/2024 4:42 PM EDT) Lactate 0.3(L) 0.5 - 2.2 mmol/L 10/26/2024 5:19 PM EDT [facility] Plasma 10/26/2024 4:42 PM EDT 10/26/2024 4:47 PM EDT Kemar Sahni MD LAB BLOOD ORDERABLES Final Result Performing Organization Address [facility]/ZIP Co de Phone Number [facility] [address] [facility] * Magnesium (10/26/2024 4:42 PM EDT) Magnesium 2.0 1.5 - 2.5 mg/dL 10/26/2024 5:24 PM EDT [facility] Plasma 10/26/2024 4:42 PM EDT 10/26/2024 4:47 PM EDT Kemar Sahni MD LAB BLOOD ORDERABLES Final Result [facility] [address] [facility] * (ABNORMAL) Hepatic Function Panel (10/26/2024 4:42 PM EDT) Total Bilirubin 2.3(H) 0.0 - 1.5 mg/dL 10/26/2024 5:24 PM EDT [facility] Bilirubin, Direct 1.85(H) 0.00 - 0.40 mg/dL 10/26/2024 5:24 PM EDT [facility] AST 374(H) 13 - 39 U/L 10/26/2024 5:24 PM EDT [facility] ALT 458(H) 7 - 52 U/L 10/26/2024 5:24 PM EDT [facility] Alkaline Phosphatase 39 36 - 125 U/L 10/26/2024 5:24 PM EDT [facility] Total Protein 3.8(L) 6.4 - 8.9 g/dL 10/26/2024 5:24 PM EDT [facility] Albumin 3.0(L) 3.5 - 5.7 g/dL 10/26/2024 5:24 PM EDT [facility] Bilirubin, Indirect 0.45 0.00 - 1.10 mg/dL 10/26/2024 5:24 PM EDT [facility] Plasma 10/26/2024 4:42 PM EDT 10/26/2024 4:47 PM EDT Kemar Sahni MD LAB BLOOD ORDERABLES Final Result [facility] [address] * (ABNORMAL) Protime-INR (10/26/2024 4:42 PM EDT) Protime 20.3(H) 12.1 - 15.1 seconds 10/26/2024 5:12 PM EDT [facility] INR 1.7(H) 0.9 - 1.1 10/26/2024 5:12 PM EDT [facility] Comment: RECOMMENDED THERAPEUTIC RANGES USING INR : Stable oral anticoagulant therapy: 2.0 - 3.0 Mechanical prosthetic heart valve: 2.5 - 3.5 Recurrent acute myocardial infarction: 2.5 - 3.5 Plasma 10/26/2024 4:42 PM EDT 10/26/2024 4:47 PM EDT Kemar Sahni MD LAB BLOOD ORDERABLES Final Result [facility] [address] [place] [address], [facility] * (ABNORMAL) CBC (10/26/2024 4:42 PM EDT) WBC 10.0 3.8 - 10.8 10E3/uL 10/26/2024 5:00 PM EDT [facility] RBC 3.44(L) 4.20 - 5.80 10E6/uL 10/26/2024 5:00 PM EDT [facility] Hemoglobin 10.5(L) 13.2 - 17.1 g/dL 10/26/2024 5:00 PM EDT [facility] Hematocrit 30.2(L) 38.5 - 50.0 % 10/26/2024 5:00 PM EDT [facility] MCV 87.7 80.0 - 100.0 fL 10/26/2024 5:00 PM EDT [facility] MCH 30.6 27.0 - 33.0 pg 10/26/2024 5:00 PM EDT [facility] MCHC 34.8 32.0 - 36.0 g/dL 10/26/2024 5:00 PM EDT [facility] RDW 20.1(H) 11.0 - 15.0 % 10/26/2024 5:00 PM EDT [facility] Platelets 48(L) 140 - 400 10E3/uL 10/26/2024 5:00 PM EDT [facility] Comment:Specimen checked for clots. None detected. MPV 7.9 7.5 - 11.5 fL 10/26/2024 5:00 PM EDT [facility] Whole Blood 10/26/2024 4:42 PM EDT 10/26/2024 4:47 PM EDT us Kemar Sahni MD LAB BLOOD ORDERABLES Final Result [facility] [address] [place] [address], [facility] * (ABNORMAL) Renal Function Panel w/EGFR (10/26/2024 4:42 PM EDT) Pathologist [facility] [place] Sodium 142 133 - 146 mmol/L 10/26/2024 5:24 PM EDT [facility] Potassium 3.3(L) 3.5 - 5.3 mmol/L 10/26/2024 5:24 PM EDT [facility] Chloride 109 98 - 110 mmol/L 10/26/2024 5:24 PM EDT [facility] CO2 23 21 - 33 mmol/L 10/26/2024 5:24 PM EDT [facility] Anion Gap 10 3 - 16 mmol/L 10/26/2024 5:24 PM EDT [facility] BUN 63(H) 7 - 25 mg/dL 10/26/2024 5:24 PM EDT [facility] Creatinine 2.85(H) 0.60 - 1.30 mg/dL 10/26/2024 5:24 PM EDT [facility] Glucose 127(H) 70 - 100 mg/dL 10/26/2024 5:24 PM EDT [facility] Calcium 8.9 8.6 - 10.3 mg/dL 10/26/2024 5:24 PM EDT [facility] Phosphorus 4.4 2.1 - 4.7 mg/dL 10/26/2024 5:24 PM EDT [facility] Albumin 3.0(L) 3.5 - 5.7 g/dL 10/26/2024 5:24 PM EDT [facility] Osmolality, Calculated 314(H) 278 - 305 mOsm/kg 10/26/2024 5:24 PM EDT [facility] EGFR 28 10/26/2024 5:24 PM EDT [facility] Comment:As of 2021, the estimated [...] Final Result Performing Organization Address [facility] Co de Phone Number [facility] [address] [facility]. [address] * (ABNORMAL) POC Glucose Monitoring Device (10/26/2024 3:54 PM EDT) POC Glucose Monitoring Device 126(H) 70 - 100 mg/dL 10/26/2024 3:55 PM EDT [facility] Blood 10/26/2024 3:54 PM EDT 10/26/2024 3:55 PM EDT Semaj Mcnair III, MD POINT OF CARE TEST ORDERABLES Final Result Performing Organization Address [facility] Co de Phone Number [facility] [address] [facility]. [address] * (ABNORMAL) POC Glucose Monitoring Device (10/26/2024 3:06 PM EDT) POC Glucose Monitoring Device 144(H) 70 - 100 mg/dL 10/26/2024 3:14 PM EDT [facility] Blood 10/26/2024 3:06 PM EDT 10/26/2024 3:13 PM EDT Semaj Mcnair III, MD POINT OF CARE TEST ORDERABLES Final Result Performing Organization Address [facility] Co de Phone Number [facility] [address] [facility]. [address] * (ABNORMAL) TEG-Bypass/ECMO/Liver HN (Factor function, Platelet/Fibrin Clot Strength w/Clot Breakdown, Heparinase In All Channels) (10/26/2024 3:03 PM EDT) Citrated Kaolin Reaction Time (TEGECMOLIVER) 8.2 4.6 - 9.1 minutes 10/26/2024 4:43 PM EDT [facility] Citrated Kaolin W/Heparinase Reaction Time (TEGECMOLIVER) 8.2 4.3 - 8.3 minutes 10/26/2024 4:43 PM EDT [facility] Citrated Kaolin Maximum Amplitude (TEGECMOLIVER) 41.7(L) 52.0 - 69.0 mm 10/26/2024 4:43 PM EDT [facility] Citrated Functional Fibrinogen W/Heparinase Maximum Amplitude(TEGEC MOLIVER) 11.4(L) 15.0 - 34.0 mm 10/26/2024 4:43 PM EDT [facility] Citrated Rapid Teg W/Heparinase Maximum Amplitude (TEGECMOLIVER) 38.6(L) 53.0 - 69.0 mm 10/26/2024 4:43 PM EDT [facility] Citrated Kaolin w/Heparinase Percent Lysis (TEGECMOLIVER) 0.0 0.0 - 3.2 % 10/26/2024 4:43 PM EDT [facility] Whole Blood (Citrate) 10/26/2024 3:03 PM EDT 10/26/2024 3:10 PM EDT Jani Mooney MD LAB BLOOD ORDERABLES Final Resul t Performing Organization Address City/State/[facility] Co de Phone Number [facility] [address] * ECG 12 lead (MUSE) (10/26/2024 2:19 PM EDT) 10/26/2024 2:19 PM EDT Narrative MUSE - 10/27/2024 10:09 AM EDT Ventricular Rate: 105 BPM Atrial Rate: 105 BPM P-R Interval: 128 ms QRS Duration: 94 ms QT: 474 ms QTc: 626 ms R Middleton: -37 degrees T Middleton: 35 degrees Diagnosis Line: Critical Test Result: [...] - 100 mg/dL 10/26/2024 2:01 PM EDT [facility] Blood 10/26/2024 2:00 PM EDT 10/26/2024 2:01 PM EDT Semaj Mcnair III, MD POINT OF CARE TEST ORDERABLES Final Result Performing Organization Address [facility] Co de Phone Number [facility] [address] [facility]. [address] * (ABNORMAL) POC Glucose Monitoring Device (10/26/2024 1:05 PM EDT) POC Glucose Monitoring Device 212(H) 70 - 100 mg/dL 10/26/2024 1:06 PM EDT [facility] Blood 10/26/2024 1:05 PM EDT 10/26/2024 1:06 PM EDT Semaj Mcnair III, MD POINT OF CARE TEST ORDERABLES Final Result Performing Organization Address [facility] Co de Phone Number [facility] [address] [facility]. [address] * Transfuse Cryoprecipitate Has consent been [...] Final Result Performing Organization Address [facility] de Phone Number EXTERNAL * (ABNORMAL) POC Glucose Monitoring Device (10/26/2024 12:06 PM EDT) POC Glucose Monitoring Device 226(H) 70 - 100 mg/dL 10/26/2024 12:07 PM EDT [facility] Blood 10/26/2024 12:0 6 PM EDT 10/26/2024 12:07 PM EDT Semaj Mcnair III, MD POINT OF CARE TEST ORDERABLES Final Result Performing Organization Address [facility] de Phone Number [facility] [address] [facility]. [address] * Transfuse Cryoprecipitate Transfusion Rate: Per dept routine (10/26/2024 12:01 PM EDT) John Pina MD NURSING TREATMENT ORDERABLES - BLOOD ADMIN Final Result Performing Organization Address [facility] de Phone Number EXTERNAL * Transfuse Cryoprecipitate Transfusion Rate: Per dept routine, 1 Units (10/26/2024 12:01 PM EDT) John Pina MD NURSING TREATMENT ORDERABLES - BLOOD ADMIN Final Result Performing Organization Address [facility] de Phone Number EXTERNAL * Lactic Acid (10/26/2024 10:48 AM EDT) Lactate 1.2 0.5 - 2.2 mmol/L 10/26/2024 11:27 AM EDT [facility] Plasma 10/26/2024 10:4 8 AM EDT 10/26/2024 10:53 AM EDT Kemar Sahni MD LAB BLOOD ORDERABLES Final Result Performing Organization Address [facility] Co de Phone Number [facility] [address] * Magnesium (10/26/2024 10:48 AM EDT) Magnesium 2.0 1.5 - 2.5 mg/dL 10/26/2024 11:26 AM EDT [facility] Plasma 10/26/2024 10:4 8 AM EDT 10/26/2024 10:53 AM EDT us Kemar Sahni MD LAB BLOOD ORDERABLES Final Result [facility] [address] * (ABNORMAL) Hepatic Function Panel (10/26/2024 10:48 AM EDT) Total Bilirubin 5.9(H) 0.0 - 1.5 mg/dL 10/26/2024 11:26 AM EDT [facility] Bilirubin, Direct 4.74(H) 0.00 - 0.40 mg/dL 10/26/2024 11:26 AM EDT [facility] AST 872(H) 13 - 39 U/L 10/26/2024 11:26 AM EDT [facility] ALT 736(H) 7 - 52 U/L 10/26/2024 11:26 AM EDT [facility] Alkaline Phosphatase 56 36 - 125 U/L 10/26/2024 11:26 AM EDT [facility] Total Protein 3.5(L) 6.4 - 8.9 g/dL 10/26/2024 11:26 AM EDT [facility] Albumin 2.5(L) 3.5 - 5.7 g/dL 10/26/2024 11:26 AM EDT [facility] Bilirubin, Indirect 1.16(H) 0.00 - 1.10 mg/dL 10/26/2024 11:26 AM EDT [facility] Plasma 10/26/2024 10:4 8 AM EDT 10/26/2024 10:53 AM EDT us Kemar Sahni MD LAB BLOOD ORDERABLES Final Result [facility] [address] * (ABNORMAL) Protime-INR (10/26/2024 10:48 AM EDT) Protime 23.0(H) 12.1 - 15.1 seconds 10/26/2024 11:26 AM EDT [facility] INR 2.0(H) 0.9 - 1.1 10/26/2024 11:26 AM EDT [facility] Comment: RECOMMENDED THERAPEUTIC RANGES USING INR : Stable oral anticoagulant therapy: 2.0 - 3.0 Mechanical prosthetic heart valve: 2.5 - 3.5 Recurrent acute myocardial infarction: 2.5 - 3.5 Plasma 10/26/2024 10:4 8 AM EDT 10/26/2024 10:53 AM EDT Kemar Sahni MD LAB BLOOD ORDERABLES Final Result [facility] [address] * (ABNORMAL) CBC (10/26/2024 10:48 AM EDT) WBC 17.3(H) 3.8 - 10.8 10E3/uL 10/26/2024 11:14 AM EDT [facility] RBC 4.22 4.20 - 5.80 10E6/uL 10/26/2024 11:14 AM EDT [facility] Hemoglobin 12.8(L) 13.2 - 17.1 g/dL 10/26/2024 11:14 AM EDT [facility] Hematocrit 37.2(L) 38.5 - 50.0 % 10/26/2024 11:14 AM EDT [facility] MCV 88.3 80.0 - 100.0 fL 10/26/2024 11:14 AM EDT [facility] MCH 30.4 27.0 - 33.0 pg 10/26/2024 11:14 AM EDT [facility] MCHC 34.4 32.0 - 36.0 g/dL 10/26/2024 11:14 AM EDT [facility] RDW 20.8(H) 11.0 - 15.0 % 10/26/2024 11:14 AM EDT [facility] Platelets 109(L) 140 - 400 10E3/uL 10/26/2024 11:14 AM EDT [facility] MPV 7.5 7.5 - 11.5 fL 10/26/2024 11:14 AM EDT [facility] Whole Blood 10/26/2024 10:4 8 AM EDT 10/26/2024 10:53 AM EDT us Kemar Sahni MD LAB BLOOD ORDERABLES Final Result [facility] [address] [place] [address], [facility] * (ABNORMAL) Blood gas, arterial (10/26/2024 10:48 AM EDT) O2 Sat, Arterial 97 10/26/2024 10:54 AM EDT [facility] FIO2 35% 10/26/2024 10:54 AM EDT [facility] pH, Arterial 7.37 7.35 - 7.45 10/26/2024 10:54 AM EDT [facility] pCO2, Arterial 36 35 - 45 mm Hg 10/26/2024 10:54 AM EDT [facility] pO2, Arterial 91 80 - 100 mm Hg 10/26/2024 10:54 AM EDT [facility] HCO3, Arterial 22 22 - 26 mmol/L 10/26/2024 10:54 AM EDT [facility] CO2 Content,Arteri al 22(L) 23 - 27 mmol/L 10/26/2024 10:54 AM EDT [facility] Base Excess, Arterial -3.9(L) -2.0 - 3.0 mmol/L 10/26/2024 10:54 AM EDT [facility] %HBO2, Arterial 94.8(L) 95.0 - 98.0 % 10/26/2024 10:54 AM EDT [facility] Carboxyhemoglo bin, Arterial 1.9 % 10/26/2024 10:54 AM EDT [facility] Comment: CARBOXYHEMOGLOBIN (CO) REFERENCE RANGES: Non-Smokers: <2 % Smokers: <8 % TOXIC: >20 % Methemoglobin, Arterial 0.7 0.0 - 1.5 % 10/26/2024 10:54 AM EDT [facility] Reduced hemoglobin, Arterial 2.5 0.0 - 5.0 % 10/26/2024 10:54 AM EDT [facility] Blood, Arterial 10/26/2024 1 0:48 AM EDT 10/26/2024 10:52 AM EDT us Shay Sifuentes MD LAB BLOOD ORDERABLES Final Resu lt [facility] [address] [place] [address], [facility] * (ABNORMAL) Renal Function Panel w/EGFR (10/26/2024 10:48 AM EDT) Sodium 139 133 - 146 mmol/L 10/26/2024 11:26 AM EDT [facility] Potassium 2.9(LL) 3.5 - 5.3 mmol/L 10/26/2024 11:26 AM EDT [facility] Comment:K CRITICAL VALUE WAS PREVIOUSLY CALLED Chloride 107 98 - 110 mmol/L 10/26/2024 11:26 AM EDT [facility] CO2 22 21 - 33 mmol/L 10/26/2024 11:26 AM EDT [facility] Anion Gap 10 3 - 16 mmol/L 10/26/2024 11:26 AM EDT [facility] BUN 61(H) 7 - 25 mg/dL 10/26/2024 11:26 AM EDT [facility] Creatinine 2.78(H) 0.60 - 1.30 mg/dL 10/26/2024 11:26 AM EDT [facility] Glucose 253(H) 70 - 100 mg/dL 10/26/2024 11:26 AM EDT [facility] Calcium 8.8 8.6 - 10.3 mg/dL 10/26/2024 11:26 AM EDT [facility] Phosphorus 4.1 2.1 - 4.7 mg/dL 10/26/2024 11:26 AM EDT [facility] Albumin 2.5(L) 3.5 - 5.7 g/dL 10/26/2024 11:26 AM EDT [facility] Osmolality, Calculated 314(H) 278 - 305 mOsm/kg 10/26/2024 11:26 AM EDT [facility] EGFR 28 10/26/2024 11:26 AM EDT [facility] Comment:As of 2021, the estimated [...] Sahni MD LAB BLOOD ORDERABLES Final Result [facility] [address] * (ABNORMAL) POC Glucose Monitoring Device (10/26/2024 10:47 AM EDT) POC Glucose Monitoring Device 234(H) 70 - 100 mg/dL 10/26/2024 10:48 AM EDT [facility] Blood 10/26/2024 10:4 7 AM EDT 10/26/2024 10:48 AM EDT us Semaj Mcnair III, MD POINT OF CARE TEST ORDERABLES Final Result [facility] [address] [facility]. [address] * CARISA Rhythm Strip - Scan (10/26/2024 10:45 AM EDT) us Scanning Uchhim SCAN DOCS - NO RESULTS Final Res ult * (ABNORMAL) POC Glucose Monitoring Device (10/26/2024 10:08 AM EDT) POC Glucose Monitoring Device 235(H) 70 - 100 mg/dL 10/26/2024 10:09 AM EDT [facility] Blood 10/26/2024 10:0 8 AM EDT 10/26/2024 10:09 AM EDT Semaj Mcnair III, MD POINT OF CARE TEST ORDERABLES Final Result Performing Organization Address City/[facility]/ZIP Co de Phone Number [facility] [address] [facility]. [address] * (ABNORMAL) POC Glucose Monitoring Device (10/26/2024 8:57 AM EDT) POC Glucose Monitoring Device 232(H) 70 - 100 mg/dL 10/26/2024 8:59 AM EDT [facility] Blood 10/26/2024 8:57 AM EDT 10/26/2024 8:58 AM EDT Semaj Mcnair III, MD POINT OF CARE TEST ORDERABLES Final Result [facility] [address] [place] [address]. [address] * ECG 12 lead (MUSE) (10/26/2024 8:16 AM EDT) 10/26/2024 8:16 AM EDT Narrative MUSE - 10/27/2024 10:09 AM EDT Ventricular Rate: 112 BPM QRS Duration: 96 ms QT: 452 ms QTc: 616 ms R Middleton: -41 degrees T Middleton: 40 degrees Diagnosis Line: Critical Test Result: Long QTc ^ SINUS TACHYCARDIA OCCASIONAL PREMATURE VENTRICULAR COMPLEXES ^ LEFT AXIS DEVIATION, LEFT ANTERIOR HEMIBLOCK ^ PROLONGED QT ^ ABNORMAL ECG ^ ^ Confirmed by MD HA, [facility] ([id number][facility] on 10/27/2024 10:09:18 AM us Shay [...] - 100 mg/dL 10/26/2024 8:01 AM EDT [facility] Blood 10/26/2024 7:59 AM EDT 10/26/2024 8:00 AM EDT Semaj Mcnair III, MD POINT OF CARE TEST ORDERABLES Final Result [facility] [address] [place] [address], [facility] * (ABNORMAL) TEG-Bypass/ECMO/Liver HN (Factor function, Platelet/Fibrin Clot Strength w/Clot Breakdown, Heparinase In All Channels) (10/26/2024 7:59 AM EDT) Citrated Kaolin Reaction Time (TEGECMOLIVER) 8.2 4.6 - 9.1 minutes 10/26/2024 10:36 AM EDT [facility] Citrated Kaolin W/Heparinase Reaction Time (TEGECMOLIVER) 8.1 4.3 - 8.3 minutes 10/26/2024 10:36 AM EDT [facility] Citrated Kaolin Maximum Amplitude (TEGECMOLIVER) 46.8(L) 52.0 - 69.0 mm 10/26/2024 10:36 AM EDT [facility] Citrated Functional Fibrinogen W/Heparinase Maximum Amplitude(TEGEC MOLIVER) 10.5(L) 15.0 - 34.0 mm 10/26/2024 10:36 AM EDT [facility] Citrated Rapid Teg W/Heparinase Maximum Amplitude (TEGECMOLIVER) 45.5(L) 53.0 - 69.0 mm 10/26/2024 10:36 AM EDT [facility] Citrated Kaolin w/Heparinase Percent Lysis (TEGECMOLIVER) 0.0 0.0 - 3.2 % 10/26/2024 10:36 AM EDT [facility] Whole Blood (Citrate) 10/26/2024 7:59 AM EDT 10/26/2024 8:05 AM EDT Shay Sifuentes MD LAB BLOOD ORDERABLES Final Resu lt Performing Organization Address City/[facility]/ZIP Co de Phone Number [facility] [address] [place] [address]. [address] * (ABNORMAL) POC Glucose Monitoring Device (10/26/2024 6:12 AM EDT) POC Glucose Monitoring Device 196(H) 70 - 100 mg/dL 10/26/2024 6:13 AM EDT [facility] Blood 10/26/2024 6:12 AM EDT 10/26/2024 6:13 AM EDT Semaj Mcnair III, MD POINT OF CARE TEST ORDERABLES Final Result Performing Organization Address [facility]/ZIP Co de Phone Number [facility] [address] [facility]. [address] * Lactic Acid (10/26/2024 6:10 AM EDT) Lactate 1.2 0.5 - 2.2 mmol/L 10/26/2024 6:39 AM EDT [facility] Plasma 10/26/2024 6:10 AM EDT 10/26/2024 6:19 AM EDT us Sveta Judge MD LAB BLOOD ORDERABLES Final Resu lt Performing Organization Address City/[facility]/ZIP Co de Phone Number [facility] [address] [facility]. [address] * (ABNORMAL) Fibrinogen (10/26/2024 6:10 AM EDT) Fibrinogen 160(L) 218 - 406 mg/dL 10/26/2024 6:41 AM EDT [facility] Plasma 10/26/2024 6:10 AM EDT 10/26/2024 6:26 AM EDT Sveta Judge MD LAB BLOOD ORDERABLES Final Resu lt Performing Organization Address [facility] de Phone Number [facility] [address] [facility]. [address] * (ABNORMAL) Protime-INR (10/26/2024 6:10 AM EDT) Protime 25.0(H) 12.1 - 15.1 seconds 10/26/2024 6:41 AM EDT [facility] INR 2.2(H) 0.9 - 1.1 10/26/2024 6:41 AM EDT [facility] Comment: RECOMMENDED THERAPEUTIC RANGES USING INR : Stable oral anticoagulant therapy: 2.0 - 3.0 Mechanical prosthetic heart valve: 2.5 - 3.5 Recurrent acute myocardial infarction: 2.5 - 3.5 Plasma 10/26/2024 6:10 AM EDT 10/26/2024 6:26 AM EDT Sveta Judge MD LAB BLOOD ORDERABLES Final Resu lt Performing Organization Address [facility] Co de Phone Number [facility] [address] [facility]. [address] * (ABNORMAL) Blood gas, arterial (10/26/2024 6:10 AM EDT) O2 Sat, Arterial 98 10/26/2024 6:23 AM EDT [facility] FIO2 60 10/26/2024 6:23 AM EDT [facility] pH, Arterial 7.27(L) 7.35 - 7.45 10/26/2024 6:23 AM EDT [facility] pCO2, Arterial 47(H) 35 - 45 mm Hg 10/26/2024 6:23 AM EDT [facility] pO2, Arterial 127(H) 80 - 100 mm Hg 10/26/2024 6:23 AM EDT [facility] HCO3, Arterial 21(L) 22 - 26 mmol/L 10/26/2024 6:23 AM EDT [facility] CO2 Content,Arteri al 23 23 - 27 mmol/L 10/26/2024 6:23 AM EDT [facility] Base Excess, Arterial -5.4(L) -2.0 - 3.0 mmol/L 10/26/2024 6:23 AM EDT [facility] %HBO2, Arterial 94.6(L) 95.0 - 98.0 % 10/26/2024 6:23 AM EDT [facility] Carboxyhemoglo bin, Arterial 2.0 % 10/26/2024 6:23 AM EDT [facility] Comment: CARBOXYHEMOGLOBIN (CO) REFERENCE RANGES: Non-Smokers: <2 % Smokers: <8 % TOXIC: >20 % Methemoglobin, Arterial 1.6(H) 0.0 - 1.5 % 10/26/2024 6:23 AM EDT [facility] Reduced hemoglobin, Arterial 1.8 0.0 - 5.0 % 10/26/2024 6:23 AM EDT [facility] Blood, Arterial 10/26/2024 6 :10 AM EDT 10/26/2024 6:20 AM EDT Sveta Judge MD LAB BLOOD ORDERABLES Final Resu lt Performing Organization Address [facility] Co de Phone Number [facility] [address] [facility]. [address] * Magnesium (10/26/2024 6:10 AM EDT) Magnesium 1.5 1.5 - 2.5 mg/dL 10/26/2024 7:09 AM EDT [facility] Plasma 10/26/2024 6:10 AM EDT 10/26/2024 6:23 AM EDT Sveta Judge MD LAB BLOOD ORDERABLES Final Resu lt Performing Organization Address City/[facility] Co de Phone Number [facility] [address] * (ABNORMAL) Hepatic Function Panel (10/26/2024 6:10 AM EDT) Total Bilirubin 6.2(H) 0.0 - 1.5 mg/dL 10/26/2024 7:11 AM EDT [facility] Bilirubin, Direct 5.26(H) 0.00 - 0.40 mg/dL 10/26/2024 7:11 AM EDT [facility] AST 1,071(H) 13 - 39 U/L 10/26/2024 7:11 AM EDT [facility] ALT 805(H) 7 - 52 U/L 10/26/2024 7:11 AM EDT [facility] Alkaline Phosphatase 55 36 - 125 U/L 10/26/2024 7:11 AM EDT [facility] Total Protein <3.0(L) 6.4 - 8.9 g/dL 10/26/2024 7:11 AM EDT [facility] Albumin 1.9(L) 3.5 - 5.7 g/dL 10/26/2024 7:11 AM EDT [facility] Bilirubin, Indirect 0.94 0.00 - 1.10 mg/dL 10/26/2024 7:11 AM EDT [facility] Plasma 10/26/2024 6:10 AM EDT 10/26/2024 6:23 AM EDT us Sveta Judge MD LAB BLOOD ORDERABLES Final Resu lt [facility] [address] [address] * (ABNORMAL) Renal Function Panel w/EGFR (10/26/2024 6:10 AM EDT) Sodium 141 133 - 146 mmol/L 10/26/2024 7:09 AM EDT [facility] Potassium 2.8(LL) 3.5 - 5.3 mmol/L 10/26/2024 7:09 AM EDT [facility] Comment:Critical value previ ously called. Chloride 106 98 - 110 mmol/L 10/26/2024 7:09 AM EDT [facility] CO2 25 21 - 33 mmol/L 10/26/2024 7:09 AM EDT [facility] Anion Gap 10 3 - 16 mmol/L 10/26/2024 7:09 AM EDT [facility] BUN 57(H) 7 - 25 mg/dL 10/26/2024 7:09 AM EDT [facility] Creatinine 2.70(H) 0.60 - 1.30 mg/dL 10/26/2024 7:09 AM EDT [facility] Glucose 210(H) 70 - 100 mg/dL 10/26/2024 7:09 AM EDT [facility] Calcium 8.7 8.6 - 10.3 mg/dL 10/26/2024 7:09 AM EDT [facility] Phosphorus 5.4(H) 2.1 - 4.7 mg/dL 10/26/2024 7:09 AM EDT [facility] Albumin 1.9(L) 3.5 - 5.7 g/dL 10/26/2024 7:11 AM EDT [facility] Osmolality, Calculated 314(H) 278 - 305 mOsm/kg 10/26/2024 7:09 AM EDT [facility] EGFR 29 10/26/2024 7:09 AM EDT [facility] Comment:As of 2021, the estimated [...] AM EDT 10/26/2024 6:23 AM EDT us Sveat Judge MD LAB BLOOD ORDERABLES Final Resu lt [facility] [address] * (ABNORMAL) CBC (10/26/2024 6:10 AM EDT) WBC 14.8(H) 3.8 - 10.8 10E3/uL 10/26/2024 6:46 AM EDT [facility] RBC 4.04(L) 4.20 - 5.80 10E6/uL 10/26/2024 6:46 AM EDT [facility] Hemoglobin 12.7(L) 13.2 - 17.1 g/dL 10/26/2024 6:46 AM EDT [facility] Hematocrit 35.9(L) 38.5 - 50.0 % 10/26/2024 6:46 AM EDT [facility] MCV 89.0 80.0 - 100.0 fL 10/26/2024 6:46 AM EDT [facility] MCH 31.3 27.0 - 33.0 pg 10/26/2024 6:46 AM EDT [facility] MCHC 35.2 32.0 - 36.0 g/dL 10/26/2024 6:46 AM EDT [facility] RDW 19.7(H) 11.0 - 15.0 % 10/26/2024 6:46 AM EDT [facility] Platelets 107(L) 140 - 400 10E3/uL 10/26/2024 6:46 AM EDT [facility] MPV 7.4(L) 7.5 - 11.5 fL 10/26/2024 6:46 AM EDT [facility] Whole Blood 10/26/2024 6:10 AM EDT 10/26/2024 6:26 AM EDT us Sveta Judge MD LAB BLOOD ORDERABLES Final Resu lt [facility] [address] * (ABNORMAL) POC INR (10/26/2024 5:16 AM EDT) Prothrombin Time INR, POC 2.4(H) 0.8 - 1.4 10/27/2024 6:51 AM EDT [facility] Comment: Test results may vary [...] TEST ORDERABLES Final Result Performing Organization Address City/[facility]/ZIP Co de Phone Number [facility] [address] [facility]. [address] * POC Sample Type (10/26/2024 5:14 AM EDT) POC Sample Type Arterial 10/26/2024 5:31 AM EDT [facility] Blood, Arterial 10/26/2024 5 :14 AM EDT 10/26/2024 5:31 AM EDT Semaj Mcnair III, MD POINT OF CARE TEST ORDERABLES Final Result Performing Organization Address City/[facility] Co de Phone Number [facility] [address] [facility]. [address] * POC Anion Gap (10/26/2024 5:14 AM EDT) POC Anion Gap, Arterial 12 3 - 16 mmol/L 10/26/2024 5:31 AM EDT [facility] Blood, Arterial 10/26/2024 5 :14 AM EDT 10/26/2024 5:31 AM EDT us Semaj Mcnair III, MD POINT OF CARE TEST ORDERABLES Final Result Performing Organization Address City/[facility]/ZIP Co de Phone Number [facility] [address] [facility]. [address] * POC Chloride (10/26/2024 5:14 AM EDT) Pathologist [facility] POC Chloride 104 98 - 110 mmol/L 10/26/2024 5:31 AM EDT [facility] Blood, Arterial 10/26/2024 5 :14 AM EDT 10/26/2024 5:31 AM EDT us Semaj Mcnair III, MD POINT OF CARE TEST ORDERABLES Final Result [facility] [address] [facility]. [address] * (ABNORMAL) POC Hemoglobin (10/26/2024 5:14 AM EDT) [facility] POC Hemoglobin 9.5(L) 14.0 - 18.0 g/dL 10/26/2024 5:31 AM EDT [facility] Blood, Arterial 10/26/2024 5:14 AM EDT 10/26/2024 5:31 AM EDT us Semaj Mcnair III, MD POINT OF CARE TEST ORDERABLES Final Result Performing Organization Address [facility] Co de Phone Number [facility] [address] [place] [address]. [address] * (ABNORMAL) POC hematocrit (10/26/2024 5:14 AM EDT) [facility] POC Hematocrit 28.0(L) 40 - 52 % 10/26/2024 5:31 AM EDT [facility] Blood, Arterial 10/26/2024 5 :14 AM EDT 10/26/2024 5:31 AM EDT us Semaj Mcnair III, MD POINT OF CARE TEST ORDERABLES Final Result Performing Organization Address City/[facility] [place]/ZIP Co de Phone Number [facility] [address] [facility]. [address] * POC Lactate (10/26/2024 5:14 AM EDT) POC Lactate 1.76 0.50 - 2.20 mmol/L 10/26/2024 5:31 AM EDT [facility] Blood, Arterial 10/26/2024 5 :14 AM EDT 10/26/2024 5:31 AM EDT us Semaj Mcnair III, MD POINT OF CARE TEST ORDERABLES Final Result Performing Organization Address City/[facility] [place]/ZIP Co de Phone Number [facility] [address] [facility]. [address] * (ABNORMAL) POC Glucose (10/26/2024 5:14 AM EDT) POC Glucose, Arterial 183(H) 70 - 100 mg/dL 10/26/2024 5:31 AM EDT [facility] Blood, Arterial 10/26/2024 5 :14 AM EDT 10/26/2024 5:31 AM EDT us Semaj Mcnair III, MD POINT OF CARE TEST ORDERABLES Final Result Performing Organization Address [facility] [place]/[facility] Co de Phone Number [facility] [address] [place] [address]. [address] * (ABNORMAL) POC Ionized Calcium (10/26/2024 5:14 AM EDT) POC Ionized Calcium 5.50(H) 4.50 - 5.30 mg/dL 10/26/2024 5:31 AM EDT [facility] Blood, Arterial 10/26/2024 5 :14 AM EDT 10/26/2024 5:31 AM EDT us Semaj Mcnair III, MD POINT OF CARE TEST ORDERABLES Final Result Performing Organization Address City/[facility] [place]/[facility] Co de Phone Number [facility] [address] [facility]. [address] * (ABNORMAL) POC Potassium (10/26/2024 5:14 AM EDT) POC Potassium 2.8(LL) 3.5 - 5.3 mmol/L 10/26/2024 5:31 AM EDT [facility] Blood, Arterial 10/26/2024 5 :14 AM EDT 10/26/2024 5:31 AM EDT us Semaj Mcnair III, MD POINT OF CARE TEST ORDERABLES Final Result [facility] [address] [facility]. [address] * POC Sodium (10/26/2024 5:14 AM EDT) Pathologist [facility] [place] POC Sodium 138 136 - 146 mmol/L 10/26/2024 5:31 AM EDT [facility] Blood, Arterial 10/26/2024 5 :14 AM EDT 10/26/2024 5:31 AM EDT us Semaj Mcnair III, MD POINT OF CARE TEST ORDERABLES Final Result Performing Organization Address City/[facility] [place]/[facility] Co de Phone Number [facility] [address] [place] [address]. [address] * POC TCO2 (10/26/2024 5:14 AM EDT) Pathologist [facility] [place] POC TCO2, Arterial 23 23 - 27 mmol/L 10/26/2024 5:31 AM EDT [facility] Blood, Arterial 10/26/2024 5 :14 AM EDT 10/26/2024 5:31 AM EDT us Semaj Mcnair III, MD POINT OF CARE TEST ORDERABLES Final Result Performing Organization Address City/[facility] [place]/[facility] Co de Phone Number [facility] [address] [facility]. [address] * (ABNORMAL) POC O2 SAT (10/26/2024 5:14 AM EDT) Pathologist [facility] [place] POC O2 Saturation, Arterial 99(H) 95 - 98 % 10/26/2024 5:31 AM EDT [facility] Blood, Arterial 10/26/2024 5 :14 AM EDT 10/26/2024 5:31 AM EDT us Semaj Mcnair III, MD POINT OF CARE TEST ORDERABLES Final Result Performing Organization Address City/[facility] [place]/ZIP Co de Phone Number [facility] [address] [place] [address]. [address] * (ABNORMAL) POC Base Excess (10/26/2024 5:14 AM EDT) POC Base Excess, Arterial -5(L) -2 - 3 mmol/L 10/26/2024 5:31 AM EDT [facility] Blood, Arterial 10/26/2024 5 :14 AM EDT 10/26/2024 5:31 AM EDT us Semaj Mcnair III, MD POINT OF CARE TEST ORDERABLES Final Result Performing Organization Address City/[facility] [place]/[facility] Co de Phone Number [facility] [address] [facility]. [address] * POC HCO3 (10/26/2024 5:14 AM EDT) POC HCO3, Arterial 22 22 - 26 mmol/L 10/26/2024 5:31 AM EDT [facility] Blood, Arterial 10/26/2024 5 :14 AM EDT 10/26/2024 5:31 AM EDT us Semaj Mcnair III, MD POINT OF CARE TEST ORDERABLES Final Result Performing Organization Address City/[facility] [place]/[facility] Co de Phone Number [facility] [address] [place] [address]. [address] * (ABNORMAL) POC PO2 (10/26/2024 5:14 AM EDT) POC pO2, Arterial 133(H) 80 - 100 mm Hg 10/26/2024 5:31 AM EDT [facility] Blood, Arterial 10/26/2024 5 :14 AM EDT 10/26/2024 5:31 AM EDT us Semaj Mcnair III, MD POINT OF CARE TEST ORDERABLES Final Result Performing Organization Address City/[facility] [place]/ZIP Co de Phone Number [facility] [address] * POC PCO2 (10/26/2024 5:14 AM EDT) POC pCO2, Arterial 45 35 - 45 mm Hg 10/26/2024 5:31 AM EDT [facility] Blood, Arterial 10/26/2024 5 :14 AM EDT 10/26/2024 5:31 AM EDT Semaj Mcnair III, MD POINT OF CARE TEST ORDERABLES Final Result Performing Organization Address [facility] [place]/[facility] Co de Phone Number [facility] [address] * (ABNORMAL) POC pH (10/26/2024 5:14 AM EDT) POC pH, Arterial 7.29(L) 7.35 - 7.45 10/26/2024 5:31 AM EDT [facility] Blood, Arterial 10/26/2024 5 :14 AM EDT 10/26/2024 5:31 AM EDT us Semaj Mcnair III, MD POINT OF CARE TEST ORDERABLES Final Result Performing Organization Address City/[facility] [place]/[facility] Co de Phone Number [facility] [address] * Transfuse Cryoprecipitate (10/26/2024 4:37 AM [...] 0.8 - 1.4 10/27/2024 6:51 AM EDT [facility] Comment: Test results may vary [...] POINT OF CARE TEST ORDERABLES Final Result [facility] [address] [facility]. [address] * POC Sample Type (10/26/2024 4:24 AM EDT) [facility] POC Sample Type Arterial 10/26/2024 5:09 AM EDT [facility] Blood, Arterial 10/26/2024 4 :24 AM EDT 10/26/2024 5:09 AM EDT Result [facility] Semaj Mcnair III, MD POINT OF CARE TEST ORDERABLES Final Result [facility] [address] * POC Anion Gap (10/26/2024 4:24 AM EDT) Pathologist [facility] [place] POC Anion Gap, Arterial 14 3 - 16 mmol/L 10/26/2024 5:09 AM EDT [facility] Blood, Arterial 10/26/2024 4 :24 AM EDT 10/26/2024 5:09 AM EDT us Semaj Mcnair III, MD POINT OF CARE TEST ORDERABLES Final Result Performing Organization Address City/[facility] [place]/ZIP Co de Phone Number [facility] [address] * POC Chloride (10/26/2024 4:24 AM EDT) POC Chloride 103 98 - 110 mmol/L 10/26/2024 5:09 AM EDT [facility] Blood, Arterial 10/26/2024 4 :24 AM EDT 10/26/2024 5:09 AM EDT us Semaj Mcnair III, MD POINT OF CARE TEST ORDERABLES Final Result Performing Organization Address City/[facility] [place]/[facility] Co de Phone Number [facility] [address] [facility]. [address] * (ABNORMAL) POC Hemoglobin (10/26/2024 4:24 AM EDT) POC Hemoglobin 10.3(L) 14.0 - 18.0 g/dL 10/26/2024 5:09 AM EDT [facility] Blood, Arterial 10/26/2024 4 :24 AM EDT 10/26/2024 5:09 AM EDT us Semaj Mcnair III, MD POINT OF CARE TEST ORDERABLES Final Result [facility] [address] [facility]. [address] * (ABNORMAL) POC hematocrit (10/26/2024 4:24 AM EDT) POC Hematocrit 30.0(L) 40 - 52 % 10/26/2024 5:09 AM EDT [facility] Blood, Arterial 10/26/2024 4 :24 AM EDT 10/26/2024 5:09 AM EDT us Semaj Mcnair III, MD POINT OF CARE TEST ORDERABLES Final Result Performing Organization Address [facility] [place]/[facility] Co de Phone Number [facility] [address] * (ABNORMAL) POC Lactate (10/26/2024 4:24 AM EDT) POC Lactate 2.43(H) 0.50 - 2.20 mmol/L 10/26/2024 5:09 AM EDT [facility] Blood, Arterial 10/26/2024 4 :24 AM EDT 10/26/2024 5:09 AM EDT us Semaj Mcnair III, MD POINT OF CARE TEST ORDERABLES Final Result Performing Organization Address [facility] [place]/[facility] de Phone Number [facility] [address] [facility]. [address] * (ABNORMAL) POC Glucose (10/26/2024 4:24 AM EDT) POC Glucose, Arterial 185(H) 70 - 100 mg/dL 10/26/2024 5:09 AM EDT [facility] Blood, Arterial 10/26/2024 4 :24 AM EDT 10/26/2024 5:09 AM EDT us Semaj Mcnair III, MD POINT OF CARE TEST ORDERABLES Final Result Performing Organization Address [facility] [place]/[facility] Co de Phone Number [facility] [address] * POC Ionized Calcium (10/26/2024 4:24 AM EDT) POC Ionized Calcium 5.20 4.50 - 5.30 mg/dL 10/26/2024 5:09 AM EDT [facility] Blood, Arterial 10/26/2024 4 :24 AM EDT 10/26/2024 5:09 AM EDT us Semaj Mcnair III, MD POINT OF CARE TEST ORDERABLES Final Result Performing Organization Address City/[facility] [place]/ZIP Co de Phone Number [facility] [address] * (ABNORMAL) POC Potassium (10/26/2024 4:24 AM EDT) POC Potassium 2.8(LL) 3.5 - 5.3 mmol/L 10/26/2024 5:09 AM EDT [facility] Blood, Arterial 10/26/2024 4 :24 AM EDT 10/26/2024 5:09 AM EDT us Semaj Mcnair III, MD POINT OF CARE TEST ORDERABLES Final Result Performing Organization Address [facility] [place]/[facility] Co de Phone Number [facility] [address] [facility]. [address] * POC Sodium (10/26/2024 4:24 AM EDT) POC Sodium 139 136 - 146 mmol/L 10/26/2024 5:09 AM EDT [facility] Blood, Arterial 10/26/2024 4 :24 AM EDT 10/26/2024 5:09 AM EDT us Semaj Mcnair III, MD POINT OF CARE TEST ORDERABLES Final Result Performing Organization Address City/[facility] [place]/[facility] Co de Phone Number [place] [address] [facility]. [address] * POC TCO2 (10/26/2024 4:24 AM EDT) POC TCO2, Arterial 23 23 - 27 mmol/L 10/26/2024 5:09 AM EDT [facility] Blood, Arterial 10/26/2024 4 :24 AM EDT 10/26/2024 5:09 AM EDT us Semaj Mcnair III, MD POINT OF CARE TEST ORDERABLES Final Result Performing Organization Address City/[facility] [place]/ZIP Co de Phone Number [facility] [address] [facility]. [address] * POC O2 SAT (10/26/2024 4:24 AM EDT) POC O2 Saturation, Arterial 96 95 - 98 % 10/26/2024 5:09 AM EDT [facility] Blood, Arterial 10/26/2024 4 :24 AM EDT 10/26/2024 5:09 AM EDT us Semaj Mcnair III, MD POINT OF CARE TEST ORDERABLES Final Result Performing Organization Address [facility] [place]/[facility] Co de Phone Number [facility] [address] [facility]. [address] * (ABNORMAL) POC Base Excess (10/26/2024 4:24 AM EDT) POC Base Excess, Arterial -5(L) -2 - 3 mmol/L 10/26/2024 5:09 AM EDT [facility] Blood, Arterial 10/26/2024 4 :24 AM EDT 10/26/2024 5:09 AM EDT us Semaj Mcnair III, MD POINT OF CARE TEST ORDERABLES Final Result Performing Organization Address City/[facility] [place]/ZIP Co de Phone Number [facility] [address] [facility]. [address] * POC HCO3 (10/26/2024 4:24 AM EDT) POC HCO3, Arterial 22 22 - 26 mmol/L 10/26/2024 5:09 AM EDT [facility] Blood, Arterial 10/26/2024 4 :24 AM EDT 10/26/2024 5:09 AM EDT us Semaj Mcnair III, MD POINT OF CARE TEST ORDERABLES Final Result [facility] [address] * POC PO2 (10/26/2024 4:24 AM EDT) POC pO2, Arterial 93 80 - 100 mm Hg 10/26/2024 5:09 AM EDT [facility] Blood, Arterial 10/26/2024 4 :24 AM EDT 10/26/2024 5:09 AM EDT us Semaj Mcnair III, MD POINT OF CARE TEST ORDERABLES Final Result Performing Organization Address [facility] [place]/ZIP Co de Phone Number [facility] [address] * POC PCO2 (10/26/2024 4:24 AM EDT) POC pCO2, Arterial 44 35 - 45 mm Hg 10/26/2024 5:09 AM EDT [facility] Blood, Arterial 10/26/2024 4 :24 AM EDT 10/26/2024 5:09 AM EDT us Semaj Mcnair III, MD POINT OF CARE TEST ORDERABLES Final Result Performing Organization Address City/[facility] [place]/ZIP Co de Phone Number [facility] [address] * (ABNORMAL) POC pH (10/26/2024 4:24 AM EDT) POC pH, Arterial 7.30(L) 7.35 - 7.45 10/26/2024 5:09 AM EDT [facility] Blood, Arterial 10/26/2024 4 :24 AM EDT 10/26/2024 5:09 AM EDT us Semaj Mcnair III, MD POINT OF CARE TEST ORDERABLES Final Result [facility] [address] * Transfuse Platelets (10/26/2024 4:14 AM EDT) Ben Blake MD NURSING TREATMENT ORDERABLES - BLOOD ADMIN Final Result * Transfuse Fresh Frozen Plasma (10/26/2024 3:47 AM EDT) Ben Blake MD NURSING TREATMENT ORDERABLES - BLOOD ADMIN Final Result * (ABNORMAL) POC INR (10/26/2024 3:34 AM EDT) Prothrombin Time INR, POC 2.8(H) 0.8 - 1.4 10/27/2024 6:51 AM EDT [facility] Comment: Test results may vary [...] POINT OF CARE TEST ORDERABLES Final Result [facility] [address] [facility]. [address] * POC Sample Type (10/26/2024 3:31 AM EDT) POC Sample Type Arterial 10/26/2024 4:11 AM EDT [facility] Blood, Arterial 10/26/2024 3 :31 AM EDT 10/26/2024 4:11 AM EDT Semaj Mcnair III, MD POINT OF CARE TEST ORDERABLES Final Result [facility] [address] [facility]. [address] * POC Anion Gap (10/26/2024 3:31 AM EDT) POC Anion Gap, Arterial 15 3 - 16 mmol/L 10/26/2024 4:11 AM EDT [facility] Blood, Arterial 10/26/2024 3 :31 AM EDT 10/26/2024 4:11 AM EDT us Semaj Mcnair III, MD POINT OF CARE TEST ORDERABLES Final Result Performing Organization Address City/[facility] [place]/[facility] Co de Phone Number [facility] [address] [place] [address]. [address] * POC Chloride (10/26/2024 3:31 AM EDT) Pathologist [facility] POC Chloride 105 98 - 110 mmol/L 10/26/2024 4:11 AM EDT [facility] Blood, Arterial 10/26/2024 3 :31 AM EDT 10/26/2024 4:11 AM EDT us Semaj Mcnair III, MD POINT OF CARE TEST ORDERABLES Final Result Performing Organization Address [facility] [place]/[facility] de Phone Number [facility] [address] [place] [address]. [address] * (ABNORMAL) POC Hemoglobin (10/26/2024 3:31 AM EDT) [facility] POC Hemoglobin 9.7(L) 14.0 - 18.0 g/dL 10/26/2024 4:11 AM EDT [facility] Blood, Arterial 10/26/2024 3 :31 AM EDT 10/26/2024 4:11 AM EDT us Semaj Mcnair III, MD POINT OF CARE TEST ORDERABLES Final Result Performing Organization Address [facility] [place]/[facility] Co de Phone Number [facility] [address] [place] [address]. [address] * (ABNORMAL) POC hematocrit (10/26/2024 3:31 AM EDT) Pathologist [facility] POC Hematocrit 29.0(L) 40 - 52 % 10/26/2024 4:11 AM EDT [facility] Blood, Arterial 10/26/2024 3 :31 AM EDT 10/26/2024 4:11 AM EDT us Semaj Mcnair III, MD POINT OF CARE TEST ORDERABLES Final Result Performing Organization Address City/[facility] [place]/ZIP Co de Phone Number [facility] [address] * (ABNORMAL) POC Lactate (10/26/2024 3:31 AM EDT) POC Lactate 3.54(H) 0.50 - 2.20 mmol/L 10/26/2024 4:11 AM EDT [facility] Blood, Arterial 10/26/2024 3 :31 AM EDT 10/26/2024 4:11 AM EDT us Semaj Mcnair III, MD POINT OF CARE TEST ORDERABLES Final Result Performing Organization Address [facility] [place]/[facility] Co de Phone Number [facility] [address] Center[facility]. [address] * (ABNORMAL) POC Glucose (10/26/2024 3:31 AM EDT) POC Glucose, Arterial 153(H) 70 - 100 mg/dL 10/26/2024 4:11 AM EDT [facility] Blood, Arterial 10/26/2024 3 :31 AM EDT 10/26/2024 4:11 AM EDT us Semaj Mcnair III, MD POINT OF CARE TEST ORDERABLES Final Result Performing Organization Address City/[facility] [place]/[facility] Co de Phone Number [facility] [address] [facility]. [address] * POC Ionized Calcium (10/26/2024 3:31 AM EDT) POC Ionized Calcium 5.10 4.50 - 5.30 mg/dL 10/26/2024 4:11 AM EDT [facility] Blood, Arterial 10/26/2024 3 :31 AM EDT 10/26/2024 4:11 AM EDT us Semaj Mcnair III, MD POINT OF CARE TEST ORDERABLES Final Result Performing Organization Address City/[facility] [place]/ZIP Co de Phone Number [facility] [address] [facility]. [address] * (ABNORMAL) POC Potassium (10/26/2024 3:31 AM EDT) POC Potassium 2.6(LL) 3.5 - 5.3 mmol/L 10/26/2024 4:11 AM EDT [facility] Blood, Arterial 10/26/2024 3 :31 AM EDT 10/26/2024 4:11 AM EDT us Semaj Mcnair III, MD POINT OF CARE TEST ORDERABLES Final Result Performing Organization Address [facility] [place]/[facility] Co de Phone Number [facility] [address] [facility]. [address] * POC Sodium (10/26/2024 3:31 AM EDT) POC Sodium 138 136 - 146 mmol/L 10/26/2024 4:11 AM EDT [facility] Blood, Arterial 10/26/2024 3 :31 AM EDT 10/26/2024 4:11 AM EDT us Semaj Mcnair III, MD POINT OF CARE TEST ORDERABLES Final Result Performing Organization Address City/[facility] [place]/[facility] Co de Phone Number [facility] [address] [facility]. [address] * (ABNORMAL) POC TCO2 (10/26/2024 3:31 AM EDT) POC TCO2, Arterial 19(L) 23 - 27 mmol/L 10/26/2024 4:11 AM EDT [facility] Blood, Arterial 10/26/2024 3 :31 AM EDT 10/26/2024 4:11 AM EDT us Semaj Mcnair III, MD POINT OF CARE TEST ORDERABLES Final Result Performing Organization Address City/[facility] [place]/ZIP Co de Phone Number [facility] [address] * POC O2 SAT (10/26/2024 3:31 AM EDT) POC O2 Saturation, Arterial 97 95 - 98 % 10/26/2024 4:11 AM EDT [facility] Blood, Arterial 10/26/2024 3 :31 AM EDT 10/26/2024 4:11 AM EDT us Semaj Mcnair III, MD POINT OF CARE TEST ORDERABLES Final Result Performing Organization Address [facility] [place]/[facility] Co de Phone Number [facility] [address] * (ABNORMAL) POC Base Excess (10/26/2024 3:31 AM EDT) POC Base Excess, Arterial -9(L) -2 - 3 mmol/L 10/26/2024 4:11 AM EDT [facility] Blood, Arterial 10/26/2024 3 :31 AM EDT 10/26/2024 4:11 AM EDT us Semaj Mcnair III, MD POINT OF CARE TEST ORDERABLES Final Result Performing Organization Address City/[facility] [place]/ZIP Co de Phone Number [facility] [address] [facility]. [address] * (ABNORMAL) POC HCO3 (10/26/2024 3:31 AM EDT) POC HCO3, Arterial 18(L) 22 - 26 mmol/L 10/26/2024 4:11 AM EDT [facility] Blood, Arterial 10/26/2024 3 :31 AM EDT 10/26/2024 4:11 AM EDT us Semaj Mcnair III, MD POINT OF CARE TEST ORDERABLES Final Result Performing Organization Address City/[facility] [place]/[facility] Co de Phone Number [facility] [address] * (ABNORMAL) POC PO2 (10/26/2024 3:31 AM EDT) POC pO2, Arterial 104(H) 80 - 100 mm Hg 10/26/2024 4:11 AM EDT [facility] Blood, Arterial 10/26/2024 3 :31 AM EDT 10/26/2024 4:11 AM EDT us Semaj Mcnair III, MD POINT OF CARE TEST ORDERABLES Final Result Performing Organization Address [facility] [place]/[facility] Co de Phone Number [facility] [address] * POC PCO2 (10/26/2024 3:31 AM EDT) POC pCO2, Arterial 42 35 - 45 mm Hg 10/26/2024 4:11 AM EDT [facility] Blood, Arterial 10/26/2024 3 :31 AM EDT 10/26/2024 4:11 AM EDT Semaj Mcnair III, MD POINT OF CARE TEST ORDERABLES Final Result Performing Organization Address City/[facility] Co de Phone Number [facility] [address] [facility]. [address] * (ABNORMAL) POC pH (10/26/2024 3:31 AM EDT) POC pH, Arterial 7.24(L) 7.35 - 7.45 10/26/2024 4:11 AM EDT [facility] Blood, Arterial 10/26/2024 3 :31 AM EDT 10/26/2024 4:11 AM EDT us Semaj Mcnair III, MD POINT OF CARE TEST ORDERABLES Final Result Performing Organization Address [facility] Co de Phone Number [facility] [address] * (ABNORMAL) TEG-Global With Lysis (Baseline TEG with LY30, Will NOT Show Heparin Effect) (53:31 AM EDT) Citrated Kaolin Reaction Time (TEGLYSIS) 6.8 4.6 - 9.1 minutes 10/26/2024 5:02 AM EDT [facility] Citrated Rapid Teg Maximum Amplitude (TEGLYSIS) <40.0(L) 52.0 - 70.0 mm 10/26/2024 5:02 AM EDT [facility] Citrated Functional Fibrinogen Maximum Amplitude (TEGLYSIS) <4.0(L) 15.0 - 32.0 mm 10/26/2024 5:02 AM EDT [facility] Citrated Kaolin Percent Lysis (TEGLYSIS) 1.4 0.0 - 2.6 % 10/26/2024 5:02 AM EDT [facility] Whole Blood (Citrate) 10/26/2024 3:31 AM EDT 10/26/2024 3:40 AM EDT us Eber Quinones MD LAB BLOOD ORDERABLES Fin al Result Performing Organization Address [facility] Co de Phone Number [facility] [address] [facility]. [address] * (ABNORMAL) CBC (10/26/2024 3:31 AM EDT) WBC 9.5 3.8 - 10.8 10E3/uL 10/26/2024 3:48 AM EDT [facility] RBC 3.68(L) 4.20 - 5.80 10E6/uL 10/26/2024 3:48 AM EDT [facility] Hemoglobin 11.5(L) 13.2 - 17.1 g/dL 10/26/2024 3:48 AM EDT [facility] Hematocrit 33.0(L) 38.5 - 50.0 % 10/26/2024 3:48 AM EDT [facility] MCV 89.6 80.0 - 100.0 fL 10/26/2024 3:48 AM EDT [facility] MCH 31.1 27.0 - 33.0 pg 10/26/2024 3:48 AM EDT [facility] MCHC 34.8 32.0 - 36.0 g/dL 10/26/2024 3:48 AM EDT [facility] RDW 19.3(H) 11.0 - 15.0 % 10/26/2024 3:48 AM EDT [facility] Platelets 67(L) 140 - 400 10E3/uL 10/26/2024 3:48 AM EDT [facility] MPV 7.9 7.5 - 11.5 fL 10/26/2024 3:48 AM EDT [facility] Whole Blood 10/26/2024 3:31 AM EDT 10/26/2024 3:40 AM EDT us Eber Quinones MD LAB BLOOD ORDERABLES Fin al Result [facility] [address] * (ABNORMAL) Protime-INR (10/26/2024 3:31 AM EDT) Protime 27.0(H) 12.1 - 15.1 seconds 10/26/2024 3:51 AM EDT [facility] INR 2.4(H) 0.9 - 1.1 10/26/2024 3:51 AM EDT [facility] Comment: RECOMMENDED THERAPEUTIC RANGES USING INR : Stable oral anticoagulant therapy: 2.0 - 3.0 Mechanical prosthetic heart valve: 2.5 - 3.5 Recurrent acute myocardial infarction: 2.5 - 3.5 Plasma 10/26/2024 3:31 AM EDT 10/26/2024 3:40 AM EDT us Eber Quinones MD LAB BLOOD ORDERABLES Fin al Result [facility] [address] [facility]. [address] * (ABNORMAL) Fibrinogen (10/26/2024 3:31 AM EDT) Fibrinogen 104(L) 218 - 406 mg/dL 10/26/2024 3:56 AM EDT [facility] Plasma 10/26/2024 3:31 AM EDT 10/26/2024 3:40 AM EDT Eber Quinones MD LAB BLOOD ORDERABLES Fin al Result Performing Organization Address [facility] Co de Phone Number [facility] [address] [facility]. [address] * Transfuse Fresh Frozen Plasma (10/26/2024 [...] Frozen Plasma (10/26/2024 2:03 AM EDT) Result [facility] Ben Blake MD NURSING TREATMENT ORDERABLES - BLOOD ADMIN Final Result * Transfuse RBC (10/26/2024 2:01 AM EDT) Result [facility] Ben Blake MD NURSING TREATMENT ORDERABLES - BLOOD ADMIN Final Result * Transfuse RBC (10/26/2024 1:45 AM EDT) Result [facility] Ben Blake MD NURSING TREATMENT ORDERABLES - BLOOD ADMIN Final Result * Transfuse RBC (10/26/2024 1:45 AM EDT) Result [facility] Ben Blake MD NURSING TREATMENT ORDERABLES - BLOOD ADMIN Final Result * (ABNORMAL) POC INR (10/26/2024 1:43 AM EDT) [facility] Signature Prothrombin Time INR, POC 1.9(H) [...] AM EDT 10/27/2024 6:51 AM EDT Result [facility] Semaj Mcnair III, MD POINT OF CARE TEST ORDERABLES Final Result [facility] [address] [place] [address], [facility] * Transfuse Fresh Frozen Plasma (10/26/2024 1:41 AM EDT) Result [facility] Ben Blake MD NURSING TREATMENT ORDERABLES - BLOOD ADMIN Final Result * Transfuse RBC (10/26/2024 1:40 AM EDT) Result [facility] Ben Blake MD NURSING TREATMENT ORDERABLES - BLOOD ADMIN Final Result * POC Sample Type (10/26/2024 1:40 AM EDT) [facility] POC Sample Type Arterial 10/26/2024 2:32 AM EDT [facility] Blood, Arterial 10/26/2024 1 :40 AM EDT 10/26/2024 2:32 AM EDT us Semaj Mcnair III, MD POINT OF CARE TEST ORDERABLES Final Result [facility] [address] [place] [address]. [address] * POC Anion Gap (10/26/2024 1:40 AM EDT) [facility] POC Anion Gap, Arterial 13 3 - 16 mmol/L 10/26/2024 2:32 AM EDT [facility] Blood, Arterial 10/26/2024 1 :40 AM EDT 10/26/2024 2:32 AM EDT us Semaj Mcnair III, MD POINT OF CARE TEST ORDERABLES Final Result Performing Organization Address [facility] Co de Phone Number [facility] [address] * POC Chloride (10/26/2024 1:40 AM EDT) [facility] POC Chloride 104 98 - 110 mmol/L 10/26/2024 2:32 AM EDT [facility] Blood, Arterial 10/26/2024 1 :40 AM EDT 10/26/2024 2:32 AM EDT us Semaj Mcnair III, MD POINT OF CARE TEST ORDERABLES Final Result Performing Organization Address City/[facility] Co de Phone Number [facility] [address] * (ABNORMAL) POC Hemoglobin (10/26/2024 1:40 AM EDT) [facility] POC Hemoglobin 7.4(L) 14.0 - 18.0 g/dL 10/26/2024 2:32 AM EDT [facility] Blood, Arterial 10/26/2024 1 :40 AM EDT 10/26/2024 2:32 AM EDT us Semaj Mcnair III, MD POINT OF CARE TEST ORDERABLES Final Result Performing Organization Address City/[facility]/ZIP Co de Phone Number [facility] [address]. [address] * (ABNORMAL) POC hematocrit (10/26/2024 1:40 AM EDT) POC Hematocrit 22.0(L) 40 - 52 % 10/26/2024 2:32 AM EDT [facility] Blood, Arterial 10/26/2024 1 :40 AM EDT 10/26/2024 2:32 AM EDT us Semaj Mcnair III, MD POINT OF CARE TEST ORDERABLES Final Result Performing Organization Address [facility] Co de Phone Number [facility] [address] [facility]. [address] * (ABNORMAL) POC Lactate (10/26/2024 1:40 AM EDT) POC Lactate 2.30(H) 0.50 - 2.20 mmol/L 10/26/2024 2:32 AM EDT [facility] Blood, Arterial 10/26/2024 1 :40 AM EDT 10/26/2024 2:32 AM EDT us Semaj Mcnair III, MD POINT OF CARE TEST ORDERABLES Final Result Performing Organization Address City/[facility] Co de Phone Number [facility] [address] [facility]. [address] * (ABNORMAL) POC Glucose (10/26/2024 1:40 AM EDT) POC Glucose, Arterial 116(H) 70 - 100 mg/dL 10/26/2024 2:32 AM EDT [facility] Blood, Arterial 10/26/2024 1 :40 AM EDT 10/26/2024 2:32 AM EDT us Semaj Mcnair III, MD POINT OF CARE TEST ORDERABLES Final Result Performing Organization Address City/[facility] Co de Phone Number [facility] [address] [place] [address]. [address] * (ABNORMAL) POC Ionized Calcium (10/26/2024 1:40 AM EDT) POC Ionized Calcium 4.10(L) 4.50 - 5.30 mg/dL 10/26/2024 2:32 AM EDT [facility] Blood, Arterial 10/26/2024 1 :40 AM EDT 10/26/2024 2:32 AM EDT us Semaj Mcnair III, MD POINT OF CARE TEST ORDERABLES Final Result Performing Organization Address [facility] Co de Phone Number [facility] [address] [facility]. [address] * (ABNORMAL) POC Potassium (10/26/2024 1:40 AM EDT) POC Potassium 2.6(LL) 3.5 - 5.3 mmol/L 10/26/2024 2:32 AM EDT [facility] Blood, Arterial 10/26/2024 1 :40 AM EDT 10/26/2024 2:32 AM EDT us Semaj Mcnair III, MD POINT OF CARE TEST ORDERABLES Final Result Performing Organization Address City/[facility] Co de Phone Number [facility] [address] [facility]. [address] * (ABNORMAL) POC Sodium (10/26/2024 1:40 AM EDT) POC Sodium 135(L) 136 - 146 mmol/L 10/26/2024 2:32 AM EDT [facility] Blood, Arterial 10/26/2024 1 :40 AM EDT 10/26/2024 2:32 AM EDT us Semaj Mcnair III, MD POINT OF CARE TEST ORDERABLES Final Result Performing Organization Address City/[facility] Co de Phone Number [facility] [address] [facility]. [address] * (ABNORMAL) POC TCO2 (10/26/2024 1:40 AM EDT) POC TCO2, Arterial 19(L) 23 - 27 mmol/L 10/26/2024 2:32 AM EDT [facility] Blood, Arterial 10/26/2024 1 :40 AM EDT 10/26/2024 2:32 AM EDT Semaj Mcnair III, MD POINT OF CARE TEST ORDERABLES Final Result Performing Organization Address [facility] Co de Phone Number [facility] [address] [facility]. [address] * (ABNORMAL) POC O2 SAT (10/26/2024 1:40 AM EDT) POC O2 Saturation, Arterial 99(H) 95 - 98 % 10/26/2024 2:32 AM EDT [facility] Blood, Arterial 10/26/2024 1 :40 AM EDT 10/26/2024 2:32 AM EDT Semaj Mcnair III, MD POINT OF CARE TEST ORDERABLES Final Result Performing Organization Address City/[facility] Co de Phone Number [facility] [address] [facility]. [address] * (ABNORMAL) POC Base Excess (10/26/2024 1:40 AM EDT) POC Base Excess, Arterial -7(L) -2 - 3 mmol/L 10/26/2024 2:32 AM EDT [facility] Blood, Arterial 10/26/2024 1 :40 AM EDT 10/26/2024 2:32 AM EDT us Semaj Mcnair III, MD POINT OF CARE TEST ORDERABLES Final Result [facility] [address] [facility]. [address] * (ABNORMAL) POC HCO3 (10/26/2024 1:40 AM EDT) POC HCO3, Arterial 18(L) 22 - 26 mmol/L 10/26/2024 2:32 AM EDT [facility] Blood, Arterial 10/26/2024 1 :40 AM EDT 10/26/2024 2:32 AM EDT us Semaj Mcnair III, MD POINT OF CARE TEST ORDERABLES Final Result Performing Organization Address [facility]/ZIP Co de Phone Number [facility] [address] * (ABNORMAL) POC PO2 (10/26/2024 1:40 AM EDT) POC pO2, Arterial 145(H) 80 - 100 mm Hg 10/26/2024 2:32 AM EDT [facility] Blood, Arterial 10/26/2024 1 :40 AM EDT 10/26/2024 2:32 AM EDT us Semaj Mcnair III, MD POINT OF CARE TEST ORDERABLES Final Result [facility] [address] [facility]. [address] * (ABNORMAL) POC PCO2 (10/26/2024 1:40 AM EDT) POC pCO2, Arterial 33(L) 35 - 45 mm Hg 10/26/2024 2:32 AM EDT [facility] Blood, Arterial 10/26/2024 1 :40 AM EDT 10/26/2024 2:32 AM EDT us Semaj Mcnair III, MD POINT OF CARE TEST ORDERABLES Final Result Performing Organization Address [facility] Co de Phone Number [facility] [address] * POC pH (10/26/2024 1:40 AM EDT) POC pH, Arterial 7.35 7.35 - 7.45 10/26/2024 2:32 AM EDT [facility] Blood, Arterial 10/26/2024 1 :40 AM EDT 10/26/2024 2:32 AM EDT us Semaj Mcnair III, MD POINT OF CARE TEST ORDERABLES Final Result Performing Organization Address [facility] Co de Phone Number [facility] [address] * Transfuse Fresh Frozen Plasma (10/26/2024 1:20 AM EDT) Result [facility] Ben Blake MD NURSING TREATMENT ORDERABLES - BLOOD ADMIN Final Result * Transfuse RBC (10/26/2024 12:56 AM EDT) Result [facility] Ben Blake MD NURSING TREATMENT ORDERABLES - BLOOD ADMIN Final Result * (ABNORMAL) POC INR (10/26/2024 12:41 AM EDT) Prothrombin Time INR, POC 2.0(H) 0.8 - 1.4 10/27/2024 6:51 AM EDT [facility] Comment: Test results may vary [...] TEST ORDERABLES Final Result Performing Organization Address City/[facility] Co de Phone Number [facility] [address] [place] [address]. [address] * POC Sample Type (10/26/2024 12:39 AM EDT) POC Sample Type Arterial 10/26/2024 1:38 AM EDT [facility] Blood, Arterial 10/26/2024 1 2:39 AM EDT 10/26/2024 1:38 AM EDT us Semaj Mcnair III, MD POINT OF CARE TEST ORDERABLES Final Result Performing Organization Address [facility] Co de Phone Number [facility] [address] [place] [address]. [address] * POC Anion Gap (10/26/2024 12:39 AM EDT) POC Anion Gap, Arterial 13 3 - 16 mmol/L 10/26/2024 1:38 AM EDT [facility] Blood, Arterial 10/26/2024 1 2:39 AM EDT 10/26/2024 1:38 AM EDT us Semaj Mcnair III, MD POINT OF CARE TEST ORDERABLES Final Result Performing Organization Address City/[facility] Co de Phone Number [facility] [address] [place] [address]. [address] * POC Chloride (10/26/2024 12:39 AM EDT) POC Chloride 103 98 - 110 mmol/L 10/26/2024 1:38 AM EDT [facility] Blood, Arterial 10/26/2024 1 2:39 AM EDT 10/26/2024 1:38 AM EDT us Semaj Mcnair III, MD POINT OF CARE TEST ORDERABLES Final Result Performing Organization Address City/[facility]/ZIP Co de Phone Number [facility] [address] [facility]. [address] * (ABNORMAL) POC Hemoglobin (10/26/2024 12:39 AM EDT) POC Hemoglobin 7.9(L) 14.0 - 18.0 g/dL 10/26/2024 1:38 AM EDT [facility] Blood, Arterial 10/26/2024 1 2:39 AM EDT 10/26/2024 1:38 AM EDT Semaj Mcnair III, MD POINT OF CARE TEST ORDERABLES Final Result Performing Organization Address [facility] Co de Phone Number [facility] [address] [facility]. [address] * (ABNORMAL) POC hematocrit (10/26/2024 12:39 AM EDT) Pathologist [facility] POC Hematocrit 23.0(L) 40 - 52 % 10/26/2024 1:38 AM EDT [facility] Blood, Arterial 10/26/2024 1 2:39 AM EDT 10/26/2024 1:38 AM EDT us Semaj Mcnair III, MD POINT OF CARE TEST ORDERABLES Final Result Performing Organization Address City/[facility] Co de Phone Number [facility] [address] [facility]. [address] * POC Lactate (10/26/2024 12:39 AM EDT) POC Lactate 1.39 0.50 - 2.20 mmol/L 10/26/2024 1:38 AM EDT [facility] Blood, Arterial 10/26/2024 1 2:39 AM EDT 10/26/2024 1:38 AM EDT us Semaj Mcnair III, MD POINT OF CARE TEST ORDERABLES Final Result Performing Organization Address [facility] Co de Phone Number [facility] [address] [facility]. [address] * (ABNORMAL) POC Glucose (10/26/2024 12:39 AM EDT) POC Glucose, Arterial 116(H) 70 - 100 mg/dL 10/26/2024 1:38 AM EDT [facility] Blood, Arterial 10/26/2024 1 2:39 AM EDT 10/26/2024 1:38 AM EDT us Semaj Mcnair III, MD POINT OF CARE TEST ORDERABLES Final Result Performing Organization Address [facility] Co de Phone Number [facility] [address] [facility]. [address] * (ABNORMAL) POC Ionized Calcium (10/26/2024 12:39 AM EDT) Pathologist [facility] POC Ionized Calcium 4.30(L) 4.50 - 5.30 mg/dL 10/26/2024 1:38 AM EDT [facility] Blood, Arterial 10/26/2024 1 2:39 AM EDT 10/26/2024 1:38 AM EDT us Semaj Mcnair III, MD POINT OF CARE TEST ORDERABLES Final Result Performing Organization Address City/[facility] Co de Phone Number [facility] [address] [facility]. [address] * (ABNORMAL) POC Potassium (10/26/2024 12:39 AM EDT) POC Potassium 2.4(LL) 3.5 - 5.3 mmol/L 10/26/2024 1:38 AM EDT [facility] Blood, Arterial 10/26/2024 1 2:39 AM EDT 10/26/2024 1:38 AM EDT us Semaj Mcnair III, MD POINT OF CARE TEST ORDERABLES Final Result Performing Organization Address [facility] Co de Phone Number [facility] [address] * POC Sodium (10/26/2024 12:39 AM EDT) POC Sodium 136 136 - 146 mmol/L 10/26/2024 1:38 AM EDT [facility] Blood, Arterial 10/26/2024 1 2:39 AM EDT 10/26/2024 1:38 AM EDT us Semaj Mcnair III, MD POINT OF CARE TEST ORDERABLES Final Result Performing Organization Address [facility] Co de Phone Number [facility] [address] [facility]. [address] * (ABNORMAL) POC TCO2 (10/26/2024 12:39 AM EDT) POC TCO2, Arterial 21(L) 23 - 27 mmol/L 10/26/2024 1:38 AM EDT [facility] Blood, Arterial 10/26/2024 1 2:39 AM EDT 10/26/2024 1:38 AM EDT us Semaj Mcnair III, MD POINT OF CARE TEST ORDERABLES Final Result Performing Organization Address City/[facility] Co de Phone Number [facility] [address] [facility]. [address] * POC O2 SAT (10/26/2024 12:39 AM EDT) POC O2 Saturation, Arterial 98 95 - 98 % 10/26/2024 1:38 AM EDT [facility] Blood, Arterial 10/26/2024 1 2:39 AM EDT 10/26/2024 1:38 AM EDT us Semaj Mcnair III, MD POINT OF CARE TEST ORDERABLES Final Result Performing Organization Address City/State/[facility] Co de Phone Number [facility] [address] * (ABNORMAL) POC Base Excess (10/26/2024 12:39 AM EDT) POC Base Excess, Arterial -7(L) -2 - 3 mmol/L 10/26/2024 1:38 AM EDT [facility] Blood, Arterial 10/26/2024 1 2:39 AM EDT 10/26/2024 1:38 AM EDT us Semaj Mcnair III, MD POINT OF CARE TEST ORDERABLES Final Result Performing Organization Address [facility] Co de Phone Number [facility] [address] * (ABNORMAL) POC HCO3 (10/26/2024 12:39 AM EDT) POC HCO3, Arterial 20(L) 22 - 26 mmol/L 10/26/2024 1:38 AM EDT [facility] Blood, Arterial 10/26/2024 1 2:39 AM EDT 10/26/2024 1:38 AM EDT us Semaj Mcnair III, MD POINT OF CARE TEST ORDERABLES Final Result Performing Organization Address [facility] Co de Phone Number [facility] [address] [facility]. [address] * (ABNORMAL) POC PO2 (10/26/2024 12:39 AM EDT) POC pO2, Arterial 117(H) 80 - 100 mm Hg 10/26/2024 1:38 AM EDT [facility] Blood, Arterial 10/26/2024 1 2:39 AM EDT 10/26/2024 1:38 AM EDT us Semaj Mcnair III, MD POINT OF CARE TEST ORDERABLES Final Result [facility] [address] * (ABNORMAL) POC PCO2 (10/26/2024 12:39 AM EDT) POC pCO2, Arterial 46(H) 35 - 45 mm Hg 10/26/2024 1:38 AM EDT [facility] Blood, Arterial 10/26/2024 1 2:39 AM EDT 10/26/2024 1:38 AM EDT Semaj Mcnair III, MD POINT OF CARE TEST ORDERABLES Final Result Performing Organization Address [facility] Co de Phone Number [facility] [address] * (ABNORMAL) POC pH (10/26/2024 12:39 AM EDT) POC pH, Arterial 7.24(L) 7.35 - 7.45 10/26/2024 1:38 AM EDT [facility] Blood, Arterial 10/26/2024 1 2:39 AM EDT 10/26/2024 1:38 AM EDT Semaj Mcnair III, MD POINT OF CARE TEST ORDERABLES Final Result Performing Organization Address [facility] Co de Phone Number [facility] [address] * Transfuse Platelets (10/26/2024 12:37 AM [...] AM EDT) Gram Stain Result Cytospin Results: [facility] Gram Stain Result Polymorphonuclear Leukocytes Seen; [facility] Gram Stain Result No Organisms Seen; [facility] Culture Result No Growth After 3 Days [facility] Surgical Swab ABDOMEN / Unknown 12:03 AM EDT Comment:2.) Ascites Anaerobhic culture Fungus culture Routine culture plus stain Narrative [facility] - 10/28/2024 9:38 PM EDT 2.) Ascites Anaerobhic culture Fungus culture Routine culture plus stain 2.) Ascites Semaj Mcnair III, MD MICROBIOLOGY - GENE RAL ORDERABLES Final Result Performing Organization Address City/State/[facility] Co de Phone Number [facility] [address] * Surgical Pathology Exam (10/26/2024 12:00 AM EDT) 10/26/2024 10/27/2024 Narrative [facility] - 10/26/2024 12:00 AM EDT CASE: [id number] PATIENT: BLAIR GILBERT Clinical History: Liver - kidney transplant Pre-Operative Diagnosis: Alcoholic cirrhosis of liver Post-Operative Diagnosis: Alcoholic cirrhosis of liver Specimen(s) Submitted: A. [facility] CPT Code(s): 67555 X 1; 68392 X 5 Additional Information: FINAL DIAGNOSIS: A. 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 - Negative for neoplasm. - Increased hepatocellular iron deposition (3+; Modified Scheuer). Gall bladder: -Intramucosal and submucosal vascular congestion and hemorrhage. - Negative for dysplasia or malignancy. Gross Description: Received in formalin, labeled Blair Gilbert and [facility] liver , is a 2338-gram, hepatectomy specimen [...] discrete masses or other lesions are identified. Broaching Machine Set Up Operator sections are submitted in cassettes [id number] as follows: A1: Hilar margins, en face. [...] Pathologist signing this report is located at [facility], [address] [place] [address], [place], [place], [facility], , CLIA ID: [id number] us Semaj Mcnair III, MD PATHOLOGY/CYTOLOGY ORDERABLES Final Result [facility] * Transfuse Fresh Frozen Plasma (10/25/2024 11:47 PM EDT) Result [facility] Ben Blake MD NURSING TREATMENT ORDERABLES - BLOOD ADMIN Final Result * Transfuse RBC (10/25/2024 11:45 PM EDT) Result [facility] Ben Blake MD NURSING TREATMENT ORDERABLES - BLOOD ADMIN Final Result * Transfuse RBC (10/25/2024 11:45 PM EDT) Result [facility] Ben Blake MD NURSING TREATMENT ORDERABLES - BLOOD ADMIN Final Result * (ABNORMAL) POC INR (10/25/2024 11:43 PM EDT) Prothrombin Time INR, POC 1.7(H) 0.8 - 1.4 10/27/2024 6:51 AM EDT [facility] Comment: Test results may vary [...] POINT OF CARE TEST ORDERABLES Final Result [facility] [address] * POC Sample Type (10/25/2024 11:40 PM EDT) POC Sample Type Arterial 10/25/2024 11:57 PM EDT [facility] Blood, Arterial 10/25/2024 1 1:40 PM EDT 10/25/2024 11:57 PM EDT us Semaj Mcnair III, MD POINT OF CARE TEST ORDERABLES Final Result Performing Organization Address City/[facility]/ZIP Co de Phone Number [facility] [address] * POC Anion Gap (10/25/2024 11:40 PM EDT) POC Anion Gap, Arterial 13 3 - 16 mmol/L 10/25/2024 11:57 PM EDT [facility] Blood, Arterial 10/25/2024 1 1:40 PM EDT 10/25/2024 11:57 PM EDT us Semaj Mcnair III, MD POINT OF CARE TEST ORDERABLES Final Result Performing Organization Address [facility] Co de Phone Number [facility] [address] [facility]. [address] * POC Chloride (10/25/2024 11:40 PM EDT) POC Chloride 102 98 - 110 mmol/L 10/25/2024 11:57 PM EDT [facility] Blood, Arterial 10/25/2024 1 1:40 PM EDT 10/25/2024 11:57 PM EDT us Semaj Mcnair III, MD POINT OF CARE TEST ORDERABLES Final Result Performing Organization Address [facility] Co de Phone Number [facility] [address] [facility]. [address] * (ABNORMAL) POC Hemoglobin (10/25/2024 11:40 PM EDT) POC Hemoglobin 6.6(L) 14.0 - 18.0 g/dL 10/25/2024 11:57 PM EDT [facility] Blood, Arterial 10/25/2024 1 1:40 PM EDT 10/25/2024 11:57 PM EDT us Semaj Mcnair III, MD POINT OF CARE TEST ORDERABLES Final Result [facility] [address] * (ABNORMAL) POC hematocrit (10/25/2024 11:40 PM EDT) POC Hematocrit 19.0(L) 40 - 52 % 10/25/2024 11:57 PM EDT [facility] Blood, Arterial 10/25/2024 1 1:40 PM EDT 10/25/2024 11:57 PM EDT us Semaj Mcnair III, MD POINT OF CARE TEST ORDERABLES Final Result Performing Organization Address [facility] Co de Phone Number [facility] [address] * POC Lactate (10/25/2024 11:40 PM EDT) POC Lactate 1.36 0.50 - 2.20 mmol/L 10/25/2024 11:57 PM EDT [facility] Blood, Arterial 10/25/2024 1 1:40 PM EDT 10/25/2024 11:57 PM EDT us Semaj Mcnair III, MD POINT OF CARE TEST ORDERABLES Final Result Performing Organization Address [facility] Co de Phone Number [facility] [address] [facility]. [address] * (ABNORMAL) POC Glucose (10/25/2024 11:40 PM EDT) POC Glucose, Arterial 101(H) 70 - 100 mg/dL 10/25/2024 11:57 PM EDT [facility] Blood, Arterial 10/25/2024 1 1:40 PM EDT 10/25/2024 11:57 PM EDT us Semaj Mcnair III, MD POINT OF CARE TEST ORDERABLES Final Result Performing Organization Address City/[facility]/ZIP Co de Phone Number [facility] [address] * POC Ionized Calcium (10/25/2024 11:40 PM EDT) POC Ionized Calcium 4.50 4.50 - 5.30 mg/dL 10/25/2024 11:57 PM EDT [facility] Blood, Arterial 10/25/2024 1 1:40 PM EDT 10/25/2024 11:57 PM EDT us Semaj Mcnair III, MD POINT OF CARE TEST ORDERABLES Final Result [facility] [address] * (ABNORMAL) POC Potassium (10/25/2024 11:40 PM EDT) POC Potassium 1.9(LL) 3.5 - 5.3 mmol/L 10/25/2024 11:57 PM EDT [facility] Blood, Arterial 10/25/2024 1 1:40 PM EDT 10/25/2024 11:57 PM EDT us Semaj Mcnair III, MD POINT OF CARE TEST ORDERABLES Final Result Performing Organization Address City/[facility]/ZIP Co de Phone Number [facility] [address] * (ABNORMAL) POC Sodium (10/25/2024 11:40 PM EDT) POC Sodium 135(L) 136 - 146 mmol/L 10/25/2024 11:57 PM EDT [facility] Blood, Arterial 10/25/2024 1 1:40 PM EDT 10/25/2024 11:57 PM EDT us Semaj Mcnair III, MD POINT OF CARE TEST ORDERABLES Final Result [facility] [address] * (ABNORMAL) POC TCO2 (10/25/2024 11:40 PM EDT) POC TCO2, Arterial 21(L) 23 - 27 mmol/L 10/25/2024 11:57 PM EDT [facility] Blood, Arterial 10/25/2024 1 1:40 PM EDT 10/25/2024 11:57 PM EDT us Semaj Mcnair III, MD POINT OF CARE TEST ORDERABLES Final Result [facility] [address] * POC O2 SAT (10/25/2024 11:40 PM EDT) POC O2 Saturation, Arterial 98 95 - 98 % 10/25/2024 11:57 PM EDT [facility] Blood, Arterial 10/25/2024 1 1:40 PM EDT 10/25/2024 11:57 PM EDT us Semaj Mcnair III, MD POINT OF CARE TEST ORDERABLES Final Result [facility] [address] * (ABNORMAL) POC Base Excess (10/25/2024 11:40 PM EDT) POC Base Excess, Arterial -6(L) -2 - 3 mmol/L 10/25/2024 11:57 PM EDT [facility] Blood, Arterial 10/25/2024 1 1:40 PM EDT 10/25/2024 11:57 PM EDT Semaj Mcnair III, MD POINT OF CARE TEST ORDERABLES Final Result [facility] [address] * (ABNORMAL) POC HCO3 (10/25/2024 11:40 PM EDT) POC HCO3, Arterial 20(L) 22 - 26 mmol/L 10/25/2024 11:57 PM EDT [facility] Blood, Arterial 10/25/2024 1 1:40 PM EDT 10/25/2024 11:57 PM EDT Semaj Mcnair III, MD POINT OF CARE TEST ORDERABLES Final Result [facility] [address] [facility]. [address] * (ABNORMAL) POC PO2 (10/25/2024 11:40 PM EDT) POC pO2, Arterial 107(H) 80 - 100 mm Hg 10/25/2024 11:57 PM EDT [facility] Blood, Arterial 10/25/2024 1 1:40 PM EDT 10/25/2024 11:57 PM EDT Semaj Mcnair III, MD POINT OF CARE TEST ORDERABLES Final Result [facility] [address] [facility]. [address] * POC PCO2 (10/25/2024 11:40 PM EDT) POC pCO2, Arterial 41 35 - 45 mm Hg 10/25/2024 11:57 PM EDT [facility] Blood, Arterial 10/25/2024 1 1:40 PM EDT 10/25/2024 11:57 PM EDT Semaj Mcnair III, MD POINT OF CARE TEST ORDERABLES Final Result [facility] [address] * (ABNORMAL) POC pH (10/25/2024 11:40 PM EDT) POC pH, Arterial 7.29(L) 7.35 - 7.45 10/25/2024 11:57 PM EDT [facility] Blood, Arterial 10/25/2024 1 1:40 PM EDT 10/25/2024 11:57 PM EDT us Semaj Mcnair III, MD POINT OF CARE TEST ORDERABLES Final Result Performing Organization Address City/[facility]/ZIP Co de Phone Number [facility] [address] [facility]. [address] * Urine culture (10/25/2024 11:08 PM EDT) Culture Result <1,000 cfu/mL [facility] Culture Result Skin/Urogeni rony Mckayla. No Further Workup. [facility] Newly Placed Berkowitz Urine URINE SPECIMEN / Unknown 10/25/2024 11:08 PM EDT Comment:urine culture Narrative [facility] - 10/28/2024 9:59 AM EDT urine culture urine culture us Semaj Mcnair III, MD MICROBIOLOGY - GENE RAL ORDERABLES Final Result Performing Organization Address [facility] Co de Phone Number [facility] [address] [facility]. [address] * X-ray Portable Chest (10/25/2024 10:19 [...] - 2.2 mmol/L 10/25/2024 10:39 PM EDT [facility] Plasma 10/25/2024 10:1 7 PM EDT 10/25/2024 10:17 PM EDT Ben Blake MD LAB BLOOD ORDERABLES Final Re sult [facility] [address] * (ABNORMAL) Ferritin (10/25/2024 10:17 PM EDT) Ferritin 623.2(H) 23.9 - 336.2 ng/mL 10/25/2024 11:02 PM EDT [facility] Serum 10/25/2024 10:1 7 PM EDT 10/25/2024 10:17 PM EDT Leandra Og MD LAB BLOOD ORDERABLES F inal Result [facility] [address] [facility]. [address] * Iron Studies (Iron + TIBC) (10/25/2024 10:17 PM EDT) Iron 128 50 - 212 ug/dL 10/25/2024 10:44 PM EDT [facility] % Iron Saturation SEE COMMENT 15.0 - 55.0 % 10/25/2024 10:44 PM EDT [facility] Comment:Unable to calculate result because contributing result outside reportable range.. TIBC SEE COMMENT 261 - 462 ug/dL 10/25/2024 10:44 PM EDT [facility] Comment:Unable to calculate result because contributing result outside reportable range.. Serum 10/25/2024 10:1 7 PM EDT 10/25/2024 10:17 PM EDT Leandra Og MD LAB BLOOD ORDERABLES F inal Result [facility] [address] [facility]. [address] * PTH (10/25/2024 10:17 PM EDT) PTH 36.0 12.0 - 88.0 pg/mL 10/25/2024 11:01 PM EDT [facility] Serum 10/25/2024 10:1 7 PM EDT 10/25/2024 10:17 PM EDT Leandra Og MD LAB BLOOD ORDERABLES F inal Result [facility] [address] [facility]. [address] * HIV 1+2 Antibody/Antigen with Reflex (10/25/2024 10:17 PM EDT) HIV 1+2 AB/AGN Nonreactive Nonreactive 10/25/2024 11:03 PM EDT [facility] Serum 10/25/2024 10:1 7 PM EDT 10/25/2024 10:16 PM EDT Narrative [facility] - 10/25/2024 11:03 PM EDT \HIVRNR Leandra Og MD LAB BLOOD ORDERABLES F inal Result Performing Organization Address City/[facility]/ZIP Co de Phone Number [facility] [address] [facility]. [address] * Hepatitis B Core Antibody (10/25/2024 10:17 PM EDT) Pathologist [facility] Hep B Core Total Ab Nonreactive Nonreactive 10/25/2024 11:07 PM EDT [facility] Comment:Health Department no tified in accordance with reportable infectious disease guidelines. Serum 10/25/2024 10:1 7 PM EDT 10/25/2024 10:17 PM EDT Narrative [facility] - 10/25/2024 11:07 PM EDT A nonreactive final interpretation indicates that anti-HBc antibodies were not detected in the sample; it is possible that the individual is not infected with HBV. Leandra Og MD LAB BLOOD ORDERABLES F inal Result [facility] [address] [facility]. [address] * Hepatitis C Antibody (10/25/2024 10:17 PM EDT) HCV Ab Nonreactive Nonreactive 10/25/2024 11:16 PM EDT [facility] Comment:Health Department no tified in accordance with reportable infectious disease guidelines. Serum 10/25/2024 10:1 7 PM EDT 10/25/2024 10:17 PM EDT Narrative [facility] - 10/25/2024 11:16 PM EDT Antibodies to HCV not detected; does not exclude the possibility of exposure to HCV. us Leandra Og MD LAB BLOOD ORDERABLES F inal Result Performing Organization Address City/[facility]/ZIP Co de Phone Number [facility] [address] [facility]. [address] * (ABNORMAL) Hepatitis B Surface Antibody, Quantitati (10/25/2024 10:17 PM EDT) HBSAB NUMBER 10.70(H) 0.00 - 9.99 mIU/mL 10/25/2024 11:52 PM EDT [facility] Hep B S Ab Equivocal (A) Nonreactive 10/25/2024 11:52 PM EDT [facility] Serum 10/25/2024 10:1 7 PM EDT 10/25/2024 10:17 PM EDT us Leandra Og MD LAB BLOOD ORDERABLES F inal Result Performing Organization Address City/[facility]/ZIP Co de Phone Number [facility] [address] [facility]. [address] * Hepatitis B surface antigen (10/25/2024 10:17 PM EDT) Hep B Surface Ag Nonreactive Nonreactive 10/25/2024 11:12 PM EDT [facility] Comment:Health Department no tified in accordance with reportable infectious disease guidelines. Serum 10/25/2024 10:1 7 PM EDT 10/25/2024 10:17 PM EDT Narrative [facility] - 10/25/2024 11:12 PM EDT Specimen is considered negative for HBsAg. us Leandra Og MD LAB BLOOD ORDERABLES F inal Result Performing Organization Address City/[facility]/ZIP Co de Phone Number [facility] [address] * Hepatitis A Antibody Total (10/25/2024 10:17 PM EDT) Anti-HAV Total (IgG + IgM) Nonreactive 10/25/2024 11:13 PM EDT [facility] Serum 10/25/2024 10:1 7 PM EDT 10/25/2024 10:17 PM EDT Narrative [facility] - 10/25/2024 11:13 PM EDT HAV antibodies not detected Leandra Og MD LAB BLOOD ORDERABLES F inal Result Performing Organization Address [facility] Co de Phone Number [facility] [address] [facility]. [address] * (ABNORMAL) Hepatic Function Panel (10/25/2024 10:17 PM EDT) Total Bilirubin 9.1(H) 0.0 - 1.5 mg/dL 10/25/2024 10:47 PM EDT [facility] Bilirubin, Direct 4.58(H) 0.00 - 0.40 mg/dL 10/25/2024 10:47 PM EDT [facility] AST 51(H) 13 - 39 U/L 10/25/2024 10:47 PM EDT [facility] ALT 23 7 - 52 U/L 10/25/2024 10:47 PM EDT [facility] Alkaline Phosphatase 144(H) 36 - 125 U/L 10/25/2024 10:47 PM EDT [facility] Total Protein 5.5(L) 6.4 - 8.9 g/dL 10/25/2024 10:47 PM EDT [facility] Albumin 3.5 3.5 - 5.7 g/dL 10/25/2024 10:47 PM EDT [facility] Bilirubin, Indirect 4.52(H) 0.00 - 1.10 mg/dL 10/25/2024 10:47 PM EDT [facility] Plasma 10/25/2024 10:1 7 PM EDT 10/25/2024 10:17 PM EDT us Leandra Og MD LAB BLOOD ORDERABLES F inal Result [facility] [address] * (ABNORMAL) Renal Function Panel w/EGFR (10/25/2024 10:17 PM EDT) Sodium 137 133 - 146 mmol/L 10/25/2024 10:47 PM EDT [facility] Potassium 2.1(LL) 3.5 - 5.3 mmol/L 10/25/2024 10:47 PM EDT [facility] Comment:Critical Result K:2. 1 Called to and read back by: ALICIA CARCAMO RN at: 10/25/2024 22:47:45 by:NANCY Chloride 100 98 - 110 mmol/L 10/25/2024 10:47 PM EDT [facility] CO2 20(L) 21 - 33 mmol/L 10/25/2024 10:47 PM EDT [facility] Anion Gap 17(H) 3 - 16 mmol/L 10/25/2024 10:47 PM EDT [facility] BUN 74(H) 7 - 25 mg/dL 10/25/2024 10:47 PM EDT [facility] Creatinine 3.87(H) 0.60 - 1.30 mg/dL 10/25/2024 10:47 PM EDT [facility] Glucose 114(H) 70 - 100 mg/dL 10/25/2024 10:47 PM EDT [facility] Calcium 9.3 8.6 - 10.3 mg/dL 10/25/2024 10:47 PM EDT [facility] Phosphorus 5.9(H) 2.1 - 4.7 mg/dL 10/25/2024 10:47 PM EDT [facility] Albumin 3.5 3.5 - 5.7 g/dL 10/25/2024 10:47 PM EDT [facility] Osmolality, Calculated 307(H) 278 - 305 mOsm/kg 10/25/2024 10:47 PM EDT [facility] EGFR 19 10/25/2024 10:47 PM EDT [facility] Comment:As of 2021, the estimated [...] ORDERABLES F inal Result Performing Organization Address City/[facility]/ZIP Co de Phone Number [facility] [address] [facility]. [address] * (ABNORMAL) APTT, NO ANTICOAGULANT (10/25/2024 10:17 PM EDT) Pathologist [facility] aPTT 41.7(H) 25.5 - 35.0 seconds 10/25/2024 10:36 PM EDT [facility] Plasma 10/25/2024 10:1 7 PM EDT 10/25/2024 10:17 PM EDT Leandra Og MD LAB BLOOD ORDERABLES F inal Result [facility] [address] [facility]. [address] * (ABNORMAL) Protime-INR (10/25/2024 10:17 PM EDT) Protime 21.7(H) 12.1 - 15.1 seconds 10/25/2024 10:35 PM EDT [facility] INR 1.8(H) 0.9 - 1.1 10/25/2024 10:35 PM EDT [facility] Comment: RECOMMENDED THERAPEUTIC RANGES USING INR : Stable oral anticoagulant therapy: 2.0 - 3.0 Mechanical prosthetic heart valve: 2.5 - 3.5 Recurrent acute myocardial infarction: 2.5 - 3.5 Plasma 10/25/2024 10:1 7 PM EDT 10/25/2024 10:17 PM EDT us Leandra Og MD LAB BLOOD ORDERABLES F inal Result [facility] [address] * (ABNORMAL) Differential (10/25/2024 10:17 PM EDT) [facility] Differential Comments See Note 10/25/2024 10:54 PM EDT [facility] Comment: _Platelets Appear Decreased _Platelet Morphology Normal Scan Result PERFORMED 10/25/2024 10:54 PM EDT [facility] Neutrophils Relative 79.8 40.0 - 80.0 % 10/25/2024 10:54 PM EDT [facility] Lymphocytes Relative 9.6(L) 15.0 - 45.0 % 10/25/2024 10:54 PM EDT [facility] Monocytes Relative 8.9 0.0 - 12.0 % 10/25/2024 10:54 PM EDT [facility] Eosinophils Relative 1.3 0.0 - 8.0 % 10/25/2024 10:54 PM EDT [facility] Basophils Relative 0.4 0.0 - 1.0 % 10/25/2024 10:54 PM EDT [facility] nRBC 0 0 - 0 /100 WBC 10/25/2024 10:54 PM EDT [facility] Neutrophils Absolute 4,948 1,520 - 8,640 /uL 10/25/2024 10:54 PM EDT [facility] Lymphocytes Absolute 595 570 - 4,860 /uL 10/25/2024 10:54 PM EDT [facility] Monocytes Absolute 552 0 - 1,296 /uL 10/25/2024 10:54 PM EDT [facility] Eosinophils Absolute 81 0 - 864 /uL 10/25/2024 10:54 PM EDT [facility] Basophils Absolute 25 0 - 108 /uL 10/25/2024 10:54 PM EDT [facility] PLT Morphology Platelet morphology appears normal 10/25/2024 10:54 PM EDT [facility] Whole Blood 10/25/2024 10:1 7 PM EDT 10/25/2024 10:17 PM EDT us Leandra Og MD LAB BLOOD ORDERABLES F inal Result [facility] [address] [facility] [place] [address], [facility] * (ABNORMAL) CBC (10/25/2024 10:17 PM EDT) WBC 6.2 3.8 - 10.8 10E3/uL 10/25/2024 10:54 PM EDT [facility] RBC 2.40(L) 4.20 - 5.80 10E6/uL 10/25/2024 10:54 PM EDT [facility] Hemoglobin 8.3(L) 13.2 - 17.1 g/dL 10/25/2024 10:54 PM EDT [facility] Hematocrit 23.7(L) 38.5 - 50.0 % 10/25/2024 10:54 PM EDT [facility] MCV 98.9 80.0 - 100.0 fL 10/25/2024 10:54 PM EDT [facility] MCH 34.6(H) 27.0 - 33.0 pg 10/25/2024 10:54 PM EDT [facility] MCHC 35.0 32.0 - 36.0 g/dL 10/25/2024 10:54 PM EDT [facility] RDW 17.8(H) 11.0 - 15.0 % 10/25/2024 10:54 PM EDT [facility] Platelets 56(L) 140 - 400 10E3/uL 10/25/2024 10:54 PM EDT [facility] Comment: Specimen checked for clots. None detected. Slide Reviewed for PLT Clumps. None Seen. Platelet Estimate Decreased 10/25/2024 10:54 PM EDT [facility] MPV 8.1 7.5 - 11.5 fL 10/25/2024 10:54 PM EDT [facility] Whole Blood 10/25/2024 10:1 7 PM EDT 10/25/2024 10:17 PM EDT Narrative [facility] - 10/25/2024 10:54 PM EDT Peripheral blood smear was scanned per review criteria approved by the laboratory rn medical inpatient services. Leandra Og MD LAB BLOOD ORDERABLES F inal Result [address] * Donor Specific Antibody (DSA) (10/25/2024 10:00 PM EDT) Pathologist [facility] AntiDonor Antibodies The request and specimen(s) for this test have been received and transported to the [facility] at [address] [place] [address]. The [facility] will report results directly to the client. 10/25/2024 10:20 PM EDT [facility] Comment:Testing performed by [facility], [address] [place] [address]. The [facility] report has been forwarded to the appropriate ordering location. Please refer to this report for patient results. Serum 10/25/2024 10:0 0 PM EDT 10/25/2024 10:20 PM EDT us Leandra Og MD LAB BLOOD ORDERABLES F inal Result [address] * (ABNORMAL) Venous Blood Gas, Line/Syringe (10/25/2024 10:00 PM EDT) PH-Line Draw 7.38 7.32 - 7.42 10/25/2024 10:08 PM EDT [facility] PCO2-Line Draw 33(L) 41 - 51 mm Hg 10/25/2024 10:08 PM EDT [facility] PO2-Line Draw 33 25 - 40 mm Hg 10/25/2024 10:08 PM EDT [facility] HCO3-Line Draw 20(L) 24 - 28 mmol/L 10/25/2024 10:08 PM EDT [facility] CO2 Content-Line Draw 21(L) 25 - 29 mmol/L 10/25/2024 10:08 PM EDT [facility] Base Excess-Line Draw -5.0(L) -2.0 - 3.0 mmol/L 10/25/2024 10:08 PM EDT [facility] %HBO2-Line Draw 53.8 40.0 - 70.0 % 10/25/2024 10:08 PM EDT [facility] Carboxyhgb-Ludivina e Draw 1.9 % 10/25/2024 10:08 PM EDT [facility] Comment: CARBOXYHEMOGLOBIN (CO) REFERENCE RANGES: Non-Smokers: <2 % Smokers: <8 % TOXIC: >20 % Methemoglobin- Line Draw 0.2 0.0 - 1.5 % 10/25/2024 10:08 PM EDT [facility] Reduced Hemoglobin-Ludivina e Draw 44.1(H) 0.0 - 5.0 % 10/25/2024 10:08 PM EDT [facility] Venous, Line Draw 10/25/2024 10:00 PM EDT 10/25/2024 10:04 PM EDT us Leandra Og MD LAB BLOOD ORDERABLES F inal Result [facility] [address] [id number], [facility] * (ABNORMAL) POC Glucose Monitoring Device (10/25/2024 9:56 PM EDT) POC Glucose Monitoring Device 103(H) 70 - 100 mg/dL 10/25/2024 9:58 PM EDT [facility] Blood 10/25/2024 9:5 6 PM EDT 10/25/2024 9:57 PM EDT Semaj Mcnair III, MD POINT OF CARE TEST ORDERABLES Final Result [facility] [address] * ECG 12 lead (MUSE) (10/25/2024 9:34 PM EDT) 10/25/2024 9:34 PM EDT Narrative MUSE - 10/27/2024 10:08 AM EDT Ventricular Rate: 97 BPM Atrial Rate: 86 BPM QRS Duration: 106 ms QT: 532 ms QTc: 675 ms P [place]: 38 degrees R [place]: -29 degrees T [place]: 32 degrees Diagnosis Line: Critical Test Result: Long QTc , AV Block ^ SINUS RHYTHM WITH PREMATURE VENTRICULAR COMPLEXES ^ PROLONGED QT ^ NONSPECIFIC ST AND T WAVE CHANGES ^ ABNORMAL ECG ^ ^ Confirmed by MD HA, [facility] ([facility]) on 10/27/2024 10:08:26 AM Leandra Og MD ECG ORDERABLES Final Result Performing Organization Address City/[facility] Co de Phone Number MUSE * Hepatitis C RNA, Quant Reflex to Genotyp (10/25/2024 8:18 PM EDT) International Units Not Detected IU/mL 10/27/2024 11:03 AM EDT [facility] Comment:Test methodology for HCV RNA quantification is an FDA-approved nucleic acid amplification assay. The Lower Limit of Quantitation (LLOQ) is 15 IU/mL. The linear range of the assay is 15-100,000,000 IU/mL. The Limit of Detection (LoD) is 12.0 IU/mL for EDTA plasma. The reference range is Not Detected. IU log10 See Note log 10 IU/mL 10/27/2024 11:03 AM EDT [facility] Comment:HCV RNA not detected . Plasma 10/25/2024 8:18 PM EDT 10/25/2024 10:27 PM EDT Leandra Og MD LAB BLOOD ORDERABLES F inal Result [facility] [address] * Urinalysis w/Rfl to Microscopic (10/25/2024 8:18 PM EDT) Color, UA Yellow Yellow,Straw 10/25/2024 10:38 PM EDT [facility] Clarity, UA Clear Clear 10/25/2024 10:38 PM EDT [facility] Specific Industry, UA 1.010 1.005 - 1.035 10/25/2024 10:38 PM EDT [facility] pH, UA 6.0 5.0 - 8.0 10/25/2024 10:38 PM EDT [facility] Protein, UA Negative Negative mg/dL 10/25/2024 10:38 PM EDT [facility] Glucose, UA Negative Negative mg/dL 10/25/2024 10:38 PM EDT [facility] Ketones, UA Negative Negative mg/dL 10/25/2024 10:38 PM EDT [facility] Bilirubin, UA Negative Negative 10/25/2024 10:38 PM EDT [facility] Blood, UA Negative Negative 10/25/2024 10:38 PM EDT [facility] Nitrite, UA Negative Negative 10/25/2024 10:38 PM EDT [facility] Urobilinogen, UA <2.0 0.2 - 1.9 mg/dL 10/25/2024 10:38 PM EDT [facility] Leukocyte Esterase, UA Negative Negative 10/25/2024 10:38 PM EDT [facility] Urine 10/25/2024 8:18 PM EDT 10/25/2024 10:35 PM EDT Narrative [facility] - 10/25/2024 10:38 PM EDT Microscopic testing is not performed when the dipstick is negative for blood, leukocyte, protein and nitrite. Leandra Og MD URINE ORDERABLES Final Result [facility] [address] * Toxoplasma gondii antibody, IgG (10/25/2024 8:18 PM EDT) Toxoplasma Gondii IgG <3.0 0.0 - 7.1 IU/mL 10/27/2024 7:55 AM EDT [facility] Comment: Negative <7.2 Equivocal 7.2 - 8.7 Positive >8.7 Serum 10/25/2024 8:18 PM EDT 10/27/2024 8:06 AM EDT [facility] - 10/27/2024 8:06 AM EDT PERFORMED AT: [facility] [id number] FOLD SKIVER: Bassam Khalil, PhD PHONE: [phone] Leandra Og MD LAB BLOOD ORDERABLES F inal Result [address] * Antibody Screen (10/25/2024 7:46 PM EDT) Antibody Screen Negative 10/25/2024 10:41 PM EDT [facility] Blood 10/25/2024 7:46 PM EDT 10/25/2024 9:54 PM EDT Critical access hospital LAB - 10/25/2024 10:44 PM EDT Testing performed by [facility] Transfusion Service Ben Blake MD BLOOD BANK TEST ORDERABLES Fi nal Result [facility] [address] [place] [address]. [address] * ABO/Rh (10/25/2024 7:46 PM EDT) ABO Grouping O 10/25/2024 10:23 PM EDT [facility] Rh Type Positive 10/25/2024 10:23 PM EDT [facility] Blood 10/25/2024 7:46 PM EDT 10/25/2024 9:54 PM EDT us Ben Blake MD BLOOD BANK TEST ORDERABLES Fi nal Result [facility] [address] [place] [address], [facility] * (ABNORMAL) TEG-Standard Global Hemostasis (Rapid TEG with Heparin Effect, Contains a Baseline TEG) (10/25/2024 7:46 PM EDT) [facility] Citrated Kaolin Reaction Time (TEGHEPARINASE) 8.4 4.6 - 9.1 minutes 10/25/2024 10:49 PM EDT [facility] Citrated Rapid Teg Maximum Amplitude (TEGHEPARINASE) <40.0(L) 52.0 - 70.0 mm 10/25/2024 10:49 PM EDT [facility] Citrated Functional Fibrinogen Maximum Amplitude (TEGHEPARINASE) 6.7(L) 15.0 - 32.0 mm 10/25/2024 10:49 PM EDT [facility] Citrated Kaolin W/Heparinase Reaction Time (TEGHEPARINASE) 8.1 4.3 - 8.3 minutes 10/25/2024 10:49 PM EDT [facility] Citrated Kaolin K-Time (TEGHEPARINASE) 2.5(A) 0.8 - 2.1 minutes 10/25/2024 10:49 PM EDT [facility] Citrated Kaolin Angle (TEGHEPARINASE) 65.7(A) 63.0 - 78.0 degrees 10/25/2024 10:49 PM EDT [facility] Citrated Kaolin Maximum Amplitude (TEGHEPARINASE) <40.0(L) 52.0 - 69.0 mm 10/25/2024 10:49 PM EDT [facility] Citrated Functional Fibrinogen- Fibrinogen Level (TEGHEPARINASE) 159.5(L) 278.0 - 581.0 mg/dL 10/25/2024 10:49 PM EDT [facility] Whole Blood (Citrate) 10/25/2024 7:46 PM EDT 10/25/2024 10:15 PM EDT us Ben Blake MD LAB BLOOD ORDERABLES Final Re sult [facility] [address] [place] [address], [facility] documented in this encounter Visit Diagnoses Not [...] documented as of this encounter Care Teams Phytopathology Teacher Relationship Specialty Start Date End Date Enedina Mcguire NP [address] [place] [id number] PCP - General Internal Medicine 10/05/24 documented as of this encounter
--- OUTSIDE RECORDS SUMMARY | 2024-10-25 22:54 | XMS_ITS | Encounter Summary ---
Author Organization [facility] Address [facility] [place] [address] Care Team Providers Care Livestock Counter Name Role Phone Enedina Mcguire NP Primary Care Provider [phone] Source Comments This information has been disclosed [...] release of HIV test results or diagnoses. [id number] Reason for Visit * Auth/Cert (Routine) Specialty Diagnoses / Procedures Referred By Shane t Referred To Contact Surgical Intensive Care Diagnoses Liver transplant recipient (CMS-HCC) cirrhosis and CKD Procedures LIVER-KIDNEY TRANSPLANT [facility] [address] [place] [address] Phone: tel: Referral ID Status Reason Start Date Expiration Date Visits Re quested Visits Authorized [id number] 1 1 Encounter Details Date Type Department Care Team (Late st Contact Info) Description 10/25/2024 10:54 PM EDT Anesthesia Event [facility] [address] [place] [address] Eber Quinones MD [address] [address] Maureen Fleming MD [address] [place] [address] Anesthesia Record Procedure Summary Procedure Name Responsible [...] sodium chloride 0.9% 1 00 mL IVPB (Ejhn1Blg) 4 g cefTRIAXone (ROCEPHIN) 2 g in sodium chl oride 0.9 % 100 mL Lnod6Tez 8 g fluconazole (DIFLUCAN) 200 mg in [...] the past 12 months has th e [employer], oil, or water [employer] threatened to shut off services in [...] any time in the past 12 m [facility], were you homeless or [...] Blake MD - 10/25/2024 7:26 PM EDT [facility] DEPARTMENT OF ANESTHESIOLOGY PRE-PROCEDURAL EVALUATION Julien [...] dysrhythmias, angina, orthopnea. ECG reviewed. ROS comment: [facility] 10/14/24: IMPRESSIONS: - Patent coronary arteries [...] is no recent study available for direct fora-xz-fcao comparison. Stress echo 10/09/24: - Left ventricle: [...] at baseline or with provocation, shows no cmdot-gd-ehpm atrial level shunt. - Pulmonary arteries: Systolic [...] Strain: Low Risk (07/09/2024) Received from [facility] Overall Financial Resource Strain (CARDIA) Difficulty [...] To Answer (07/14/2024) Received from [facility] [place] of Occupational Health - Occupational Stress Questionnaire [...] times a day. naloxone (NARCAN) 4 mg/actuation [place] Apply 1 spray in one nostril if [...] MD - 10/25/2024 11:54 PM EDTAssociated Order(s): [place] Emily Cath [place] Emily Cath Date/Time: 10/25/2024 11:13 PM Performed [...] procedure performed. Ben Blake MD Attending Anesthesiologist [facility] * Jimmy Gonzalez MD - 10/25/2024 [...] procedure performed. Ben Blake MD Attending Anesthesiologist [facility] documented in this encounter Plan of [...] EDT Ben Blake MD 10/26/2024 7:45 PM [place] Emily Cath Date/Time: 10/25/2024 11:13 PM Performed [...] - 10/26/2459 10/26/24699 - 10/27/24 0659 Shift 7751-0311 1094-6271 9114-8676 24 Hour Total 1652-4297 8053-6391 3051-7391 24 Hour Total INTAKE I.V. 9100(74.3) 9100(74.3) [...] in sodium chloride 0.9 % 100 mL Iiau3Fqt) 100 100 Volume (mL) (AMPicillin 2 g in sodium chloride 0.9% 100 mL IVPB (Mdia1Gbt)) 200 200 Volume (mL) (albumin human bottle 5%) 1000 1000 Volume (mL) (potassium chloride (KCl)/Sterile water 100 mL 10 mEq/100 mL IVPB) 200 200 Shift Total(mL/kg) 83507(151.9) 87863(151.9) OUTPUT Urine 150(0.2) 1375 1525 Urine 150 [...] in sodium chloride 0.9% 100 mL IVPB (Ikje2Ipr) 2 g, Intravenous, at 200 mL/hr, Every 6 hours, First dose on 10/26/24 at 0000, Use Jjrt6Kgk Adapter - Mix Thoroughly Before Administration Bolus [...] in sodium chloride 0.9 % 100 mL Vkba0Kgf 2 g, Intravenous, Administer over 30 Minutes, Once, Use Jgih5Err Adapter - Mix Thoroughly Before Administration, Indication? [...] documented as of this encounter Care Teams Livestock Counter Relationship Specialty Start Date End Date Enedina Mcguire NP [address] [place] [address] PCP - General Internal Medicine 10/05/24 documented as of this encounter
--- OUTSIDE RECORDS SUMMARY | 2024-10-27 02:00 | XMS_ITS | Encounter Summary ---
Author Organization [facility] Address [address] [place] [address] Care Team Providers Care Hot Box Spotter Name Role Phone Enedina Mcguire NP Primary Care Provider [phone] Source Comments This information has been disclosed [...] release of HIV test results or diagnoses. [id number] Reason for Visit * Auth/Cert (Routine) Specialty Diagnoses / Procedures Referred By Shane hernadez Referred To Contact Surgical Intensive Care Diagnoses Liver transplant recipient (CMS-HCC) cirrhosis and CKD Procedures LIVER-KIDNEY TRANSPLANT [facility] SICU [address] [place] [address] Phone: tel: Referral ID Status Reason Start Date Expiration Date Visits Re quested Visits Authorized [id number] 1 1 Encounter Details Date Type Department Care Team (Late st Contact Info) Description 10/27/2024 2:00 AM EDT - 10/27/2024 6:54 AM EDT Surgery [facility] PERIOP [address] [place] [address] Semaj Mcnair III, MD [address] [facility] [address] [place] [address] Donor Kidney Transplant , Back [...] Recorded In the past 12 months has Hel[employer]ia, oil, or water [employer] threatened to shut off services in your [...] Plata MD - 11/02/2024 2:04 PM EDT [facility] Liver Transplant Surgical Service Inpatient Discharge Summary Patient: Blair Gilbert : 1985 [facility]: [id number] Date of Admission: 10/25/2024 Date of Discharge: [...] Case IDs Date Procedure Surgeon Location Status [id number] 10/25/24 LIVER TRANSPLANT Semaj Mcnair III, MD OR Comp [id number] 10/27/24 Donor Kidney Transplant , Back Bench [...] EXAM: US ABDOMEN LIMITED EXAM: US DUPLEX RGM-[id number]-DKUHZVB COMPLETE INDICATION: Post-op liver transplant COMPARISON: None [...] visualized secondary to poor acoustic windows. The false pass right kidney measures 11.6 cm in length. [...] 30 tablet Refills: 0 naloxone 4 mg/actuation [place] Commonly known as: NARCAN Apply 1 spray [...] Your Medications These medications were sent to [facility] NAA Baum [address] Mya [address] [place] [address] mycophenolate 250 mg capsule tacrolimus 1 MG capsule These medications were sent to [facility] [address] [place] [id number] Hours: Sunday - Sunday: 8:00AM - 6:00PM [...] Case IDs Date Procedure Surgeon Location Status [id number] 10/25/24 LIVER TRANSPLANT Semaj Mcnair III, MD OR Comp [id number] 10/27/24 Donor Kidney Transplant , Back Bench [...] discharge. NEURO/PAIN - Patient placed on Dilaudid CARPET CUTTER once extubated, then transitioned to multi-modal pain [...] Ureteral stentis scheduled for removal on 11/25 [facility] - PT/OT evaluated patient and recommended Home [...] Patient and family received post-transplant education from customer supply coordinator as well as medication teaching from [...] Department Center 11/04/2024 8:40 AM LTRA SURGERY, REPLACED BY [facility] LTRA HOX HOX 11/04/2024 10:10 AM LTRA HEPATORENAL HOX LTRA HOX HOX 11/25/2024 9:00 AM NAA Merida [facility] URO MAB MAB 12/02/2024 2:00 PM Bossman Huffman MD [facility] MARIANGEL MAB MAB 02/25/2025 10:50 AM Bruno Gonzalez MD KTSP HOX HOX Kenyetta Hartman, MS-4 [facility] SHAY PLATA MD 11/02/2024 12:50 PM [...] kept under 2 gm/day. Please discuss withyour campus recruiting coordinator if you have any question about appropriate dose to take. Other Instructions: Call post-liver transplant clinic with questions [phone] or call [facility] at [phone] and ask for the liver customer supply coordinator chronic specialist if you experience any of the [...] Department Center 11/04/2024 8:40 AM LTRA SURGERY, REPLACED BY [facility] LTRA HOX HOX 11/04/2024 10:10 AM LTRA HEPATORENAL [facility] LTRA HOX HOX 11/25/2024 9:00 AM NAA Merida [facility] URO MAB MAB 12/02/2024 2:00 [...] AM EDT 10/30/2024 naloxone (NARCAN) 4 mg/actuation [place] Apply 1 spray in one nostril if [...] tacrolimus and mycophenolate which were dispensed through [facility] per insurance requirements. Patient's confirms [...] Expected caregiver involvement?: is primary med manager intensive care unit Need for additional education in clinic?: routine reinforcement only Future medications to be obtained from, if known (select one): Tac/MMF to be filled from [facility] Financial concerns (if any): [...] Disp-30 tablet, R-0 naloxone (NARCAN) 4 mg/actuation [place] Apply 1 spray in one nostril if [...] Solid Organ Transplant Clinical Specialist Contact via [employer] Secure Chat * Froylan Hendrickson MD - 11/01/2024 8:04 AM EDT Liver Transplant Surgery Progress Note Name: Blair Gilbert CSN: [id number] Date: 11/01/2024 8:06 AM OR Date: 10/25/2024 [...] at 10/31/2024 4:38 PM EDT US Duplex Ctj-Obh-Hyrcjjg Comp Result Date: 10/31/2024 IMPRESSION: RIGHT UPPER [...] Otherwise normal exam. Report Verified by: Declan Cedra MD at 10/31/2024 10:29 AM EDT Assessment: [...] 10/25/2024 - 10/27/2024. Plan: Liver transplant recipient ([facility]) [Z94.4] Neuro: - [...] 3:24 PM EDT TXP - Follow Up [facility] Medical Nutrition Therapy Transplant Brief Note Diet Order/Nutrition Support: Diet/Nutrition Orders Diet Regular(7) high calorie 3000 kcal a day Frequency: Effective Now Number of Occurrences: Until Specified Order Questions: Additional restrictions: high calorie 3000 kcal a day Suicide/Behavior Risk Modification? No Dietary nutrition supplements Frequency: TID Number of Occurrences: Until Specified Order Questions: Select Supplement: Boost VHC- very high calorie protein supplement ([facility] only) Pertinent Information: Pt seen for brief [...] Based on DBW of 93.1 kg Kcals/day: 6832-2246 (25-30 kcals/kg) Protein g/day: 140-190 (1.5-2.0 g/kg) [...] Dietitian - Solid Organ Transplant Contact via [employer] Chat * Keon Dobson - 10/31/2024 2:35 PM EDT [facility] Spiritual Care Volunteer Visit PATIENT NAME: Blair Gilbert ROOM:[address] [place] [address] Yazdanism Affiliation:Oriental Orthodox Blair Gilbert was visited by a volunteer today. No needs requiring a visit from a staff water systems engineer were expressed at that time. Care Provided: Communion, Prayer/ blessing Please page our service at [phone] as needs arise for patient and/or family. Fr Dean Dobson Oriental Orthodox water systems engineer Spiritual Care Dept * Brittany Horne PT [...] transplant recipient (CMS-HCC) [Z94.4] Date: 10/31/2024 Room: [facility] Reviewed Pertinent hospital course: Yes [...] issued by OT: Long-handled sponge, Sock aid, Pet Groomer, Other (comment) Equipment issued by OT comment: leg telegraph mechanic Assessment Assessment: Decreased ADL status, Decreased IADLs, [...] IADL task (Goal met and continued 10/31) Care Home Goal : Pt will complete [...] Patient Active Problem List Diagnosis Decompensated cirrhosis ([facility]-HCC) Acute kidney injury superimposed on CKD ([facility]) Alcohol use disorder Metabolic encephalopathy Hypertension Other hyperlipidemia Thrombocytopenia ([facility]) Renal mass, left Abdominal pain Hypokalemia CKD (chronic kidney disease) stage 4, GFR 15-29 ml/min ([facility]-HCC) Metabolic acidosis with normal anion gap and bicarbonate losses GERD (gastroesophageal reflux disease) Hypothyroidism Itching Anemia BRBPR (bright red blood per rectum) SBP (spontaneous bacterial peritonitis) ([facility]) C Diff Diarrhea C. difficile diarrhea Neck [...] 0659 10/31/24 07 - 11/01/24 0659 Shift 9043-0888 7460-0964 7478-8671 24 Hour Total 0816-6924 0209-4418 7879-7395 24 Hour Total INTAKE P.O. 240 240 P.O. 240 240 Shift Total(mL/kg) 240(1.9) 240(1.9) OUTPUT Urine(mL/kg/hr) 1850(1.8) 600(0.6) 600(0.6) 3050(1) 350 350 Urine 800 614 444 9850 350 350 Urine Occurrence 2 x 2 [...] with further concerns Lavell Kramer MD 10/31/[phone] * Priti Geiger CNP - 10/31/2024 10:06 AM EDT Liver Transplant Surgery Progress Note Name: Blair Gilbert CSN: [id number] Date: 10/31/2024 10:06 AM OR Date: 10/25/2024 [...] 10/28/24 1109 LACTATE 0.3* Imaging US Duplex Grd-Sdg-Gxfhcvs Comp Result Date: 10/28/2024 IMPRESSION: ABDOMINAL ULTRASOUND [...] 10/25/2024 - 10/27/2024. Plan: Liver transplant recipient ([facility]-H[facility]) [Z94.4] Neuro: - [...] Transplant Nephrology Progress Note Patient: Blair Gilbert [id number] Date of Admit: 10/25/2024. LOS: 6 [...] CKD IIIb/IV: - Presumed s/t HRS - Electronics Engineering Manager: Yovanny Curran at [facility] Allograft Function: S/p SLK 10/25- (kidney [...] 10/27/2024 PCO2 35 10/27/2024 PO2ART 92 10/27/2024 [id number] 21 (L) 10/27/2024 BEART -4.6 (L) 10/27/2024 GAM6TIO 95.4 10/27/2024 [id number] 98 10/27/2024 Hemodynamics / Cardiovascular Status: Goal [...] % Iron Saturation: SEE COMMENT on 10/25/2024 UbcoowtN77: No results found for requested labs within [...] preliminary until attending attestation. Lauren Santos, SAMSON, STRATEGY INTERN, HAND ALMOND BLANCHER- Transplant Nephrology [phone] Preferred contact: secure chat The HPI, ROS, [...] - 10/30/24 0610/30/24699 - 10/31/24 06 Shift 5854-7421 2738-5405 3979-1489 24 Hour Total 5173-9976 7539-8204 8747-5746 24 Hour Total INTAKE P.O. 240 240 480 P.O. 240 240 480 IV Piggyback 87.2 87.2 Volume (mL) (micafungin (MYCAMINE) 50 mg in sodium chloride 0.9 % 100 mL Qnhl7Npq IVPB) 87.2 87.2 Shift Total(mL/kg) 240(2) 327.2(2.7) 567.2(4.4) OUTPUT Urine(mL/kg/hr) 600(0.6) 1175(1.2) 450(0.4) 2225(0.7) 550 550 Output (mL) (IUC (Berkowitz) Triple-lumen (3-Way) 18 Fr.) 600 1921 889 0471 550 550 Drains 175 245 100 520 [...] month of prophylaxis Lavell Kramer MD 10/30/[phone] * Priti Geiger CNP - 10/30/2024 10:36 AM EDT Liver Transplant Surgery Progress Note Name: Blair Gilbert CSN: [id number] Date: 10/30/2024 10:37 AM OR Date: 10/25/2024 [...] 1109 LACTATE 0.5 0.3* Imaging US Duplex Omo-Tkj-Wsgupqj Comp Result Date: 10/28/2024 IMPRESSION: ABDOMINAL ULTRASOUND [...] 10/25/2024 - 10/27/2024. Plan: Liver transplant recipient ([facility]-H[facility]) [Z94.4] Neuro: - [...] Transplant Nephrology Progress Note Patient: Blair Gilbert [id number] Date of Admit: 10/25/2024. 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 Lauren Santos, DNP, STRATEGY INTERN, HAND ALMOND BLANCHER- Transplant Nephrology [phone] Preferred contact: secure chat The HPI, ROS, [...] EDT Pt seen, examined, and discussed with SODA JERKER on 10/30/2024. reviewed the chart including the labs and imaging studies. My additional comments below. 39 y.o. 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 S/p SLK 10/25-10/26 Good uop Mild MA, will monitor for now for needs of po bicarb Aaron Gonzalez MD, MEd, FASN * Ben Weiss, RD - 10/29/2024 3:36 PM EDT TXP - Follow Up [facility] Medical Nutrition Therapy Follow-Up Diet Order/Nutrition [...] I/O: +23.3L net volume. 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 Admit Weight: 270 lb (122.5 kg) [...] Based on DBW of 93.1 kg Kcals/day: 5084-0749 (25-30 kcals/kg) Protein g/day: 140-190 (1.5-2.0 g/kg) [...] Dietitian - Solid Organ Transplant Contact via [employer] Chat * Anita Carrascoradha, PT - 10/29/2024 2:04 PM EDT Physical Therapy Initial Assessment Name: Blair Gilbert : 1985 Attending Physician: Semaj Mcnair III, MD Admission Diagnosis: Liver transplant recipient (CMS-HCC) [Z94.4] Date: 10/29/2024 Room: [place] [address] [address] Reviewed Pertinent hospital course: Yes Hospital Course [...] with functional mobility at: 4/10 or less Brim Cutter Goal : Pt will ambulate 250' mod [...] transplant recipient (CMS-HCC) [Z94.4] Date: 10/29/2024 Room: [place] [address] [address] Reviewed Pertinent hospital course: Yes Hospital Course [...] Intervention(s): Ambulation/increased activity;Repositioned Therapist reported pain to: clinical engineer Oxygen Supplemental Oxygen Supplemental Oxygen: None (Room [...] distance ambulation in prep for IADL task Brim Cutter Goal : Pt will complete bathing assessment [...] Patient Active Problem List Diagnosis Decompensated cirrhosis ([facility]) Acute kidney injury superimposed on CKD ([facility]) Alcohol use disorder Metabolic encephalopathy Hypertension Other hyperlipidemia Thrombocytopenia ([facility]) Renal mass, left Abdominal pain Hypokalemia CKD (chronic kidney disease) stage 4, GFR 15-29 ml/min ([facility]) Metabolic acidosis with normal anion gap and bicarbonate losses GERD (gastroesophageal reflux disease) Hypothyroidism Itching Anemia BRBPR (bright red blood per rectum) SBP (spontaneous bacterial peritonitis) ([facility]) C Diff Diarrhea C. difficile diarrhea Neck pain with history of cervical spinal surgery * Caron Santos CNP - 10/29/2024 10:30 AM EDT Images from the original note were not included. Transplant Nephrology Progress Note Patient: Blair Gilbert [id number] SICU-28/USIC-28 Date of Admit: 10/25/2024. 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 Lauren Santos, SAMSON, STRATEGY INTERN, HAND ALMOND BLANCHER- Transplant Nephrology [phone] Preferred contact: secure chat The HPI, ROS, [...] EDT Pt seen, examined, and discussed with SODA JERKER on 10/29/2024. reviewed the chart including the labs and imaging studies. My additional comments below. 39 y.o. 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 Plan: Liver transplant recipient ([facility]) [Z94.4] Neuro: - [...] SQH, SCDs DISPO: floor KENYETTA DEVAN, MS4 [facility] Surgery 10:08 AM 10/29/2024 Cosigned by Lydia [...] - 10/29/2465810/29/24 07 - 10/30/24 0659 Shift 2467-0763 0163-3587 4580-7922 24 Hour Total 1811-9646 6258-3064 9167-3205 24 Hour Total INTAKE P.O. 240 0 [...] IV infusion) 253.9 374.7 775.6 1404.2 Blood 7488 263 3013 Albumin 750 750 Volume (Transfuse RBC Transfusion Rate: Per dept routine) 310 310 Volume (Transfuse RBC Transfusion Rate: Per dept routine) 271 271 IV Piggyback 918.4 725 94 8185.4 Volume (mL) (micafungin (MYCAMINE) 50 mg in sodium chloride 0.9 % 100 mL Jiyt9Kpv IVPB) 99.9 99.9 Volume (mL) (albumin human [...] month of prophylaxis Lavell Kramer MD 10/29/[phone] * John Moreno MD - 10/29/2024 6:47 AM EDT SURGICAL ICU PROGRESS NOTE 10/29/2024 6:47 AM Name: Blair Gilbert CSN: [id number] HPI: Blair Gilbert is a 39 y.o. [...] day. blood-glucose meter (TRUE METRIX GLUCOSE METER) [facility] Use to test blood sugar up to 4 times a day. DEXCOM G7 AUTOMOBILE SPRING REPAIRER Misc Use reader as directed. DEXCOM G7 [...] and at bedtime. lancets (ACCU-CHEK SOFTCLIX LANCETS) [facility] Use to test blood sugar up to 4 times a day. methocarbamoL (ROBAXIN) 500 MG tablet Take 1 tablet (500 mg total) by mouth 3 times a day. naloxone (NARCAN) 4 mg/actuation [place] Apply 1 spray in one nostril if [...] 37 37 35 PO2ART 245* 182* 92 WMY3IHM 22 21* 21* BEART -4.2* -4.8* -4.6* [...] at baseline or with provocation, shows no yjmir-aj-tzjr atrial level shunt. - Pulmonary arteries: Systolic [...] Home pantoprazole 40mg daily, continue Last BM: GOVERNMENT RELATIONS DIRECTOR - suppository today Bowel regimen: Miralax [...] results for input(s): TEGANGLE , TEGKTIME , XIJUTYWR69 , TEGMAXAMPL , TEGRTIME , CBMZ in [...] in sodium chloride 0.9 % 100 mL Gvhb8Wee IVPB 50 mg Every 24 hours 10/27/2024 -- Admin Instructions: PROTECT FROM LIGHT FLUSH LINE w/NSS PRIOR TO ADMINISTRATION Use Eicy2Vpc Adapter - Mix Thoroughly Before Administration Route: [...] BID Continuous Infusions: HYDROmorphone 6 mg/30 mL CARPET CUTTER norepinephrine 4 mcg/min (10/27/24 2318) sodium chloride [...] 10/28/2459 10/28/24 07 - 10/29/24 0659 Shift 4291-0304 3200-4972 3814-0749 24 Hour Total 2165-6300 3857-9690 7718-6680 24 Hour Total INTAKE P.O. 0 120 [...] in sodium chloride 0.9 % 100 mL Ixes6Ype IVPB) 100 100 Volume (mL) (albumin human 5%) 126 126 Volume (mL) (potassium chloride (KCl)/Sterile water 50 mL 20 mEq/50 mL IVPB 20 mEq) 100 100 Volume (mL) (AMPicillin 1 g in sodium chloride 0.9% 100 mL IVPB (Zisg1Lkw)) 100.1 57 42.9 200 Volume (mL) (mycophenolate (CELLCEPT) 500 mg in dextrose 5% in water (D5W) 50 mL IVPB) 50 5.3 55.3 Shift Total(mL/kg) 2079.3(17) 1161(9.5) 787.3(6.4) 4027.6(32.9) OUTPUT Urine(mL/kg/hr) 2195(2.2) 1000(1) 900(0.9) 4095(1.4) 490 490 Urine 360 360 Output (mL) (IUC (Berkowitz) Triple-lumen (3-Way) 18 Fr.) 1835 1022 264 6190 490 490 Emesis/NG output 50 50 Drainage [...] month of prophylaxis Lavell Kramer MD 10/28/[phone] * Caron Santos CNP - 10/28/2024 9:00 AM EDT Images from the original note were not included. Transplant Nephrology Progress Note Patient: Blair Gilbert [id number] SICU-28/USIC-28 Date of Admit: 10/25/2024. 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 Lauren aSntos, DNP, STRATEGY INTERN, HAND ALMOND BLANCHER- Transplant Nephrology [phone] Preferred contact: secure chat The HPI, ROS, [...] EDT Pt seen, examined, and discussed with SODA JERKER on 10/28/2024. reviewed the chart including the labs and imaging studies. My additional comments below. 39 y.o. 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 S/p SLK 10/25-10/26 Has great UOP 4.2L Aaron Gonzalez MD, MEd, FASN * Shay Plata MD - 10/28/2024 7:41 AM EDT Liver Transplant Surgery Progress Note Name: Blair Gilbert CSN: [id number] Date: 10/28/2024 11:05 AM OR Date: 10/25/2024 - 10/27/2024 Subjective: 1 Day Post-Op Received one unit pRBCs overnight On low dose levo this morning Increasing tachycardia Reports worsening pain, on CARPET CUTTER Tolerated sips of clears No nausea/vomiting, no [...] Oral BID Continuous: HYDROmorphone 6 mg/30 mL CARPET CUTTER norepinephrine Stopped (10/28/24 0637) sodium chloride 0.9 [...] at 10/27/2024 10:38 AM EDT US Duplex Reu-Lzp-Heketkz Comp Result Date: 10/27/2024 IMPRESSION: RIGHT UPPER [...] 10/25/2024 - 10/27/2024. Plan: Liver transplant recipient ([facility]) [Z94.4] Neuro: - Multimodal pain control: dilaudid CARPET CUTTER, tylenol, robaxin. PRN dilaudid for breakthrough CV: [...] SCDs DISPO: SICU SHAY PLATA MD, MS4 [facility] 11:05 AM 10/28/2024 Cosigned by Lydia [...] 10/28/2024 6:17 AM Name: Blair Gilbert CSN: [id number] HPI: Blair Gilbert is a 39 y.o. [...] to 4 times a day. DEXCOM G7 AUTOMOBILE SPRING REPAIRER Misc Use reader as directed. DEXCOM G7 [...] times a day. naloxone (NARCAN) 4 mg/actuation [place] Apply 1 spray in one nostril if [...] Oral BID Continuous: HYDROmorphone 6 mg/30 mL CARPET CUTTER insulin regular in 0.9 % sodium chloride [...] 37 37 35 PO2ART 245* 182* 92 PLM5ATZ 22 21* 21* BEART -4.2* -4.8* -4.6* [...] at baseline or with provocation, shows no ycsxq-bc-omky atrial level shunt. - Pulmonary arteries: Systolic [...] while intubated,convert to PO today Last BM: GOVERNMENT RELATIONS DIRECTOR Bowel regimen: Miralax today, hold senna [...] ml IV Fluids: HYDROmorphone 6 mg/30 mL CARPET CUTTER insulin regular in 0.9 % sodium chloride, [...] no concerns - 3 day berkowitz - sc 10/30 - Makes urine at baseline - [...] results for input(s): TEGANGLE , TEGKTIME , EAPHTFQP98 , TEGMAXAMPL , TEGRTIME , CBMZ in [...] in sodium chloride 0.9% 100 mL IVPB (Nbyp8Sfh) (Completed) 1 g Every 6 hours scheduled 10/26/2024 10/28/2024 Admin Instructions: Dosage may need to be adjusted for renal dysfunction. Full dose is 1g IV q6h Use Xlhj6Bwe Adapter - Mix Thoroughly Before Administration Notes to Pharmacy: On parcel post order clerk estimated creatinine clearance is 35.9 [...] in sodium chloride 0.9 % 100 mL Konh8Fpt IVPB 50 mg Every 24 hours 10/27/2024 -- Admin Instructions: PROTECT FROM LIGHT FLUSH LINE w/NSS PRIOR TO ADMINISTRATION Use Mjys5Ehc Adapter - Mix Thoroughly Before Administration Route: [...] defined as the inhalation of anything that dvais [eg, tobacco, marijuana], or vaping) [] 14. [...] the Caprini Risk Score of 10 and [facility] transplant protocol, I recommend discharging on heparin 5,000 units subcutaneously q8h (facility) or Eliquis 2.5 mg PO BID (home) for 30 days total. Endof chemoprophylaxis: 11/25/24. Farhana Velasquez PharmD Candidate, 2025 Cosigned by Hillary Fernandes PharmD at 10/28/2024 11:50 AM EDT Associated attestation - Hillary eFrnandes PharmD - 10/28/2024 11:50 AM EDT I agree with the plan of care as outlined below by the resident/fellow, and will oversee and assistin the transplant-related pharmaceutical care of the patient as needed. Hillary Fernandes PharmD, BCTXP Solid Organ Transplant Clinical Specialist Contact via [employer] Secure Chat Preferred O. [phone] * Chinedu Almeida RRT - 10/27/2024 1:10 [...] PCO2 37 10/27/2024 PO2ART 245 (H) 10/27/2024 YKX7JFL 22 10/27/2024 BEART -4.2 (L) 10/27/2024 JIZ0DLI 96.5 10/27/2024 C6BRLFIL 100 10/27/2024 Based on this SBT assessment [...] Transplant Surgery Progress Note Name: Blair Gilbert [facility]: [id number] Date: 10/27/2024 11:40 AM OR Date: 10/25/2024 - 10/27/2024 Subjective: * Day of Surgery * Remains intubated in SICU Sedated but appropriately nods to questions No acute distress Objective: BP 100/48 Pulse 89 Temp 99 ??F (37.2 ??C) ([place]) Resp 9 Ht 6' 4 (1.93 m) [...] at 10/27/2024 10:38 AM EDT US Duplex Clu-Lbo-Nomenqm Comp Result Date: 10/27/2024 IMPRESSION: RIGHT UPPER [...] DISPO: SICU KENYETTA HARTMAN, MS4 [facility] 11:40 AM 10/27/2024 [1] Patient Active Problem List Diagnosis Decompensated cirrhosis [place] Acute kidney injury superimposed on CKD ([facility]) Alcohol use disorder Metabolic encephalopathy Hypertension Other hyperlipidemia Thrombocytopenia ([facility]) Renal mass, left Abdominal pain Hypokalemia CKD (chronic kidney disease) stage 4, GFR 15-29 ml/min ([facility] Metabolic acidosis with normal anion gap and bicarbonate losses GERD (gastroesophageal reflux disease) Hypothyroidism Itching Anemia BRBPR (bright red blood per rectum) SBP (spontaneous bacterial peritonitis) ([facility]) C Diff Diarrhea C. difficile diarrhea Neck [...] 10/27/2024 7:16 AM Name: Blair Gilbert CSN: [id number] HPI: Blair Gilbert is a 39 y.o. [...] times a day. naloxone (NARCAN) 4 mg/actuation [place] Apply 1 spray in one nostril if [...] 47* 36 37 PO2ART 127* 91 137* PPO6GYL 21* 22 20* BEART -5.4* -3.9* -6.4* [...] at baseline or with provocation, shows no orjrb-tp-pdal atrial level shunt. - Pulmonary arteries: Systolic [...] IV pantoprazole while intubated, NPO Last BM: GOVERNMENT RELATIONS DIRECTOR Bowel regimen: Senna/Miralax when able Nausea: [...] 10/27/2024 0715 Gross per 24 hour Intake 53528.82 ml Output 7060 ml Net 6224.82 ml [...] results for input(s): TEGANGLE , TEGKTIME , [id number] , TEGMAXAMPL , TEGRTIME , CBMZ in [...] in sodium chloride 0.9% 100 mL IVPB (Azdz1Zop) 1 g Every 6 hours scheduled Admin Instructions: Dosage may need to be adjusted for renal dysfunction. Full dose is 1g IV q6h Use Lqre3Kag Adapter - Mix Thoroughly Before Administration Notes to Pharmacy: On parcel post order clerk estimated creatinine clearance is 35.9 mL/min (A) (based on SCr of 3.87 mg/dL (H)). Route: Intravenous Linked Group 1: Placed in And Linked Group cefTRIAXone (ROCEPHIN) 2 g in sodium chloride 0.9 % 100 mL Swmy2Fys Continuous - One Step Medications Only 10/27/2024 [...] R IJ Mac Arterial Line? R radial Benedict Urinary Catheter? 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 naloxone (NARCAN) 4 mg/actuation [place] Apply 1 spray in one nostril if [...] Low Risk (07/09/2024) Received from [facility] Overall Financial Resource Strain (CARDIA) Difficulty of [...] No Physical Activity: Unknown (07/14/2024) Received from [facility] Exercise Vital Sign Days of Exercise per Week: Patient unable to answer Minutes of Exercise per Session: Not on file Stress: Patient Unable To Answer (07/14/2024) Received from [facility] Ivorian Alexis of Occupational Health - Occupational Stress Questionnaire Feeling of Stress : Patient unable to answer Social Connections: Patient Unable To Answer (07/14/2024) Received from [facility] Social Connection and Isolation Panel [NHANES] [...] -- 5.4 ALBUMIN 3.2* 3.1* Invalid input(s): [facility] Other labs: Imaging Studies No results [...] SICU post-op. LEANDRA OG MD [facility] Liver Transplant Pager: [phone] 8:24 PM 10/25/2024 Cosigned by Semaj [...] Name: Blair Gilbert Date: 1985 Billing #: [id number] Date of Procedure: 10/25/2024 Diagnosis: End Stage Renal Disease Procedure: 1. Donor Kidney Transplant 2. Back Bench Preparation Donor Kidney 3. Baseline Kidney transplant biopsy 4. Insertion of Indwelling Stent 5. Removal of Perihepatic packing Surgeons * Flaquito Ba MD Photo Retoucher MD Shayan Findings: Low Hockey stick incision [...] donor was ABO O and UNOS ID [id number], Match Run [id number] (SLK). This donor was a Donor after [...] then wanded with the lap detection assistant tennis coach. The incision was ex tented 2 inches [...] and closure. Flaquito Ba MD Transplant Surgeon podiatrist * Flaquito Ba MD - 10/27/2024 6:15 AM EDT TRANSPLANT KIDNEY with bile duct reconstruction Brief Op Note Blair Gilbert 10/27/2024 Pre-op Diagnosis: Acute kidney injury superimposed on CKD (CMS-HCC) [N17.9, N18.9] Post-op Diagnosis: same Procedure(s): TRANSPLANT KIDNEY Surgeon(s): MD Semaj Washington III, MD Anesthesia: General Endotracheal Staff: Final Cigar And Box Examiner: Chinedu Quinn RN Scrub Person: ST Angela Fellow: Kemar Sahni MD 2nd Final Cigar And Box Examiner: Marty Clark RN 3rd Final Cigar And Box Examiner: Candis Mcdaniel RN FINDINGS Berkowitz 3 day Drains: Intraabdominal (perihepatic) UNOS ID [id number], Match Run [id number] Kid WIT 27 min Kid CIT 33 [...] (Berkowitz) Triple-lumen (3-Way) 18 Fr. (Active) Status [place] Drainage 10/26/241999 Collection Container Standard drainage bag [...] Washington III, MD Anesthesia: General Endotracheal Staff: Final Cigar And Box Examiner: Chinedu Quinn RN Relief Final Cigar And Box Examiner: Michela Amos RN Relief Scrub: Stephani Blake RN Scrub Person: ST Anegla Fellow: Kemar Sahni MD 2nd Final Cigar And Box Examiner: Marty Clark RN 3rd Final Cigar And Box Examiner: Candis Mcdaniel RN Estimated Blood Loss: 300 [...] (Berkowitz) Triple-lumen (3-Way) 18 Fr. (Active) Status [place] Drainage 10/26/241999 Collection Container Standard drainage bag [...] day Drains: 2 Intraabdominal (perihepatic) UNOS ID [id number], Match Run [id number] Donor: young DCD NRP Kid WIT 27 [...] - 10/27/2024 12:00 AM EDT [facility] PATIENT NAME: BLAIR GILBERT DATE OF : 1985 CSN: [id number] PHYSICIAN: Semaj Mcnair III, MD ADMIT DATE: 10/25/2024 DICTATED BY: Semaj Mcnair III, MD SURGERY DATE: 10/27/2024 OPERATIVE REPORT SURGEON: Semaj Mcnair III, MD LEGAL INTERNSHIP SURGEON: Kemar Sahni MD. PREOPERATIVE DIAGNOSIS: Open [...] were made hemostatic with the argon beam slate splitter. We assessed the flows of the portal [...] a mucocele formation. We then performed a bzlk-lj-hltf choledochocholedochostomy in an end to end fashion [...] small umbilicalhernia that was closed with a dbexcv-sf-vvjqm 0 PDS suture. At this point, we [...] complications. SEMAJ MCNAIR III, MD RCQ/AQ JOB#: [id number] * Semaj Mcnair III, MD - 10/26/2024 7:00 AM EDT Patient Name: Blair Gilbert Date: 1985 Billing #: [id number] Date of Procedure: 10/25/2024 - 10/26/2024 Diagnosis: Chronic Hepatic Failure without coma Procedure: 1. Orthotopic Liver Transplant 2. Back Bench Preparation Donor Liver 3. Temporary portocaval shunt 4. Perihepatic packing for control of hemorrhage 5. Placement of external choledochal stent 6. Temporary abdominal closure Attending surgeons: Semaj Mcnair III, MD Photo Retoucher Surgeon(s): Sveta Judge MD Findings: Whole organ placed in piggyback fashion with suprahepatic cava of donor to common orifice of all three hepatic veins for IVC anastomosis. Donor main portal vein to recipient main portal vein. Donor common hepatic artery to recipient right hepatic artery. Temporary abdominal with perihepatic packingfor control of hemorrhage. Externalization of bile duct with 8 Uzbek pediatric feeding tube. Portal Flow Modulation No [...] This donor was ABO O and UNOSID [id number], Match Run [id number]. This was a 42-year-old donation after circulatory [...] After completion of the outflow anastomosis, a Estonian clamp was placed across the donor suprahepatic [...] artery flows were then measured with the Frock Advisor device. The portal flow was 3.4 L/min [...] do a temporary abdominal closure. An 8 Uzbek pediatric feeding tube was brought through the [...] Sveta Alves III, MD Anesthesia: General Staff: Final Cigar And Box Examiner: Mak Maher RN; Marty Clark RN Scrub Person: ST Angela Resident: Thuy Leon MD drum stock clerk: Jose Daniel Arana RRT Estimated Blood Loss: [...] Number of days: 5 Surgery Information: -UNOS#: [id number] -ABO: O to O -Recipient: SLK candidate [...] 1:19 PM EDTAssociated Order(s): IP CONSULT TO SOA INTEGRATION DEVELOPER [facility] Transplant Discharge Education Note Assessment: Received [...] Gomez, MSN, RN, NPD- Diabetes Education Office [phone] Schedule: M-F 8:00am-4:30pm * Ben Weiss, RD - 10/27/2024 4:06 PM EDTAssociated Order(s): IP CONSULT TO NUTRITION SERVICES; IP CONSULT TO NUTRITION SERVICES TXP - Initial [facility] Medical Nutrition Therapy Reason(s) for Completion: [...] I/O: +23.2L net volume. Last BM Date: (GOVERNMENT RELATIONS DIRECTOR). Admit Weight: 270 lb (122.5 kg) [...] hyperlipidemia 07/26/2024 Renal cell carcinoma (CMS-HCC) Thrombocytopenia ([facility]) Thyroid disease Past Surgical History: [...] Based on DBW of 93.1 kg Kcals/day: 4386-2204 (25-30 kcals/kg) Protein g/day: 140-190 (1.5-2.0 g/kg) [...] Dietitian - Solid Organ Transplant Contact via [employer] Chat * Lavell Kramer MD - 10/27/2024 11:09 AM EDTAssociated Order(s): INPATIENT CONSULT TO TRANSPLANT INFECTIOUS DISEASES Infectious Disease Consultation Patient: Blair Gilbert CSN: [id number] Assessment & Plan 39 y.o. M s/p [...] blood cx's if febrile Lavell Kramer MD [phone] Chief Complaint Long Qtc History of Present [...] Low Risk (07/09/2024) Received from [facility] Overall Financial Resource Strain (CARDIA) Difficulty of [...] No Physical Activity: Unknown (07/14/2024) Received from [facility] Exercise Vital Sign Days of Exercise per Week: Patient unable to answer Minutes of Exercise per Session: Not on file Stress: Patient Unable To Answer (07/14/2024) Received from [facility] of Occupational Health - Occupational Stress Questionnaire Feeling of Stress : Patient unable to answer Social Connections: Patient Unable To Answer (07/14/2024) Received from [facility] Social Connection and Isolation Panel [NHANES] [...] to 4 times a day. DEXCOM G7 AUTOMOBILE SPRING REPAIRER Misc Use reader as directed. DEXCOM G7 [...] times a day. 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 No indications for ENTRY LEVEL MECHANICAL ENGINEER. Good UOP - Noted KT US WNL [...] preliminary until attending attestation. Lauren Santos, SAMSON, STRATEGY INTERN, HAND ALMOND BLANCHER- Transplant Nephrology [phone] Preferred contact: secure chat [1] Allergies Allergen [...] Gonzalez MD, MEd, FASN * Marcellus Hebert, ANTICHECKING IRON WORKER, GOLF TEACHER - 10/27/2024 10:21 AM EDT HEALTH Care Management/Social Work Assessment Patient Information Patient Name: Blair Gilbert Hospital Day: 2 Inpatient/Observation: Inpatient Admit Date: 10/25/2024 Admission Diagnosis: Liver transplant recipient (CMS-HCC) [Z94.4] Attending provider: Semaj Mcnair III, MD PCP: Enedina Mcguire NP Home Pharmacy: [facility] [address] [place] [address], [facility] [id number] [address] [facility] [address] [facility] [address] Issues related to obtaining medications: N/A Payor Information Medical Insurance Coverage: Payor: [facility] / Plan: [facility] [employer] / Product Type: *No Producttype* [...] Was any abuse reported by patient?: No [place] Status & Connection to [facility] Services [place] Status & Connection to [facility] Services Are [...] spouse at their one story home in [place]. 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 Patient's LNOK:Spouse, Abdiaizz Gilbert, Patient has no current or past history of suicidal/homicidal ideation. Patient has a history of mental health diagnoses, PTSD and Generalized Anxiety Disorder. Patient is connected with TransplantPsychiatrist and prescribed Prozac. Patient has a history of alcohol use and has completed 12 weeksof CD Treatment at [facility]. Spouse explained that he will [...] as appropriate. NUBIA Escalera, RONALDO Phone Number: [phone] * John Moreno MD - 10/26/2024 3:41 AM EDT SURGICAL ICU CONSULT NOTE 10/26/2024 3:41 AM Name: Blair Gilbert CSN: [id number] HPI: Blair Gilbert is a 39 y.o. [...] at 9:00 PM naloxone (NARCAN) 4 mg/actuation [place] Apply 1 spray in one nostril if [...] % 250 mL infusion 2.5 mcg/min (10/26/24 4819) insulin regular in 0.9 % sodium chloride norepinephrine 18 mcg/min (10/26/24 2963) vasopressin 0.04 Units/min (10/26/24 8764) PRN Meds: heparin (porcine) 5,000 unit/mL 10,000 [...] input(s): PHART , PCO2 , PO2ART , QJM0XAJ , BEART in the last 72 hours. [...] at baseline or with provocation, shows no ehkvz-kh-zffo atrial level shunt. - Pulmonary arteries: Systolic [...] IV pantoprazole while intubated, NPO Last BM: GOVERNMENT RELATIONS DIRECTOR Bowel regimen: Senna/Miralax when able Nausea: Zofran PRN FLUID/ELECTROLYTES Recent Labs 10/25/242216 NA 137 K 2.1* CL 100 CO2 20* BUN 74* CREATININE 3.87* CALCIUM 9.3 PHOS 5.9* GLUCOSE 114* Intake/Output Summary (Last 24 hours) at 10/26/2024 0341 Last data filed at 10/26/2024 0326 Gross per 24 hour Intake 28849 ml Output 675 ml Net 47780 ml IV Fluids: EPINEPHrine (ADRENALIN) 10 mg [...] results for input(s): TEGANGLE , TEGKTIME , PMHUVZVZ45 , TEGMAXAMPL , TEGRTIME , CBMZ in [...] in sodium chloride 0.9% 100 mL IVPB (Xxwq2Uss) 2 g Every 6 hours 10/26/2024 -- Admin Instructions: Use Cwoc7Clf Adapter - Mix Thoroughly Before Administration Notes to Pharmacy: On parcel post order clerk estimated creatinine clearance is 35.9 mL/min (A) (based on SCr of 3.87 mg/dL (H)). Route: Intravenous AMPicillin 2 g in sodium chloride 0.9% 100 mL IVPB (Fmsc9Ndc) 2 g Once 10/26/2024 -- Admin Instructions: Use Fkai4Lzd Adapter - Mix Thoroughly Before Administration Notes to Pharmacy: On parcel post order clerk estimated creatinine clearance is 35.9 mL/min (A) (based on SCr of 3.87 mg/dL (H)). Route: Intravenous cefTRIAXone (ROCEPHIN) 2 g in sodium chloride 0.9 % 100 mL Qxlu9Jxd (Completed) 2 g Once 10/25/2024 10/26/2024 Admin Instructions: Use Xdeh0Tnq Adapter - Mix Thoroughly Before Administration Route: [...] 47 (H) 10/26/2024 PO2ART 127 (H) 10/26/2024 QNC1LOQ 21 (L) 10/26/2024 BEART -5.4 (L) 10/26/2024 ZCJ6IRP 94.6 (L) 10/26/2024 K7RVIHRQ 98 10/26/2024 P:F ratio = 363 CARDIOVASCULAR: [...] Acute Care Surgery, and Surgical Critical Care [facility] Academic Office [phone] For Transfers, call [phone] documented in this encounter Nursing Notes * [...] Progressing * Care Coordination - NUBIA Escalera, GOLF TEACHER - 10/31/2024 11:34 AM EDT [facility] Case Management/Social Work Department Progress Note Patient [...] disease. PCP: Enedina Mcguire NP Home Pharmacy: [facility] [address] [place] [address] [facility] [address] [facility] [address] [facility] [address] Ba[address] - [address] [facility] [place] [id number] Medical Insurance Coverage: Payor: [facility] / Plan: [employer] / Product Type: *No Product type* / Other Pertinent Information MEREDITH received report from Transplant medical team. SW completed chart review. Per report patient is not medically ready to discharge. Patient recommended for home PT/OT and 2x weekly labs. SW followed up on [facility] referrals and submitted a few more [facility] referrals. Update: MEREDITH made nurse educator aware that there were no accepting [facility] agencies([facility], [facility], [facility]) and patient would need to outpatient for PT/OT and labs. Discharge Plan Anticipated discharge plan: Home with HHC vs Home with outpatient Anticipated discharge date: 11/01 CM/SW will continue to follow and remain available for discharge planning needs. NUBIA Escalera, RONALDO Cell [phone] * Plan of Care - Paulette Flannery [...] Citlaly Nova - 10/29/2024 1:53 PM EDT [facility] Case Management/Social Work Department Progress Note Patient [...] disease. PCP: Enedina Mcguire NP Home Pharmacy: [facility] [address] [address] [facility] [address] [facility] [address] [facility] NAA Baum - [address] [place] [id number] Medical Insurance Coverage: Payor: [facility] [...] referral. SW submitted blanket HHC referral to [facility], [facility] [place], [facility], and [facility]. Awaiting responses. SW to followpending clearance [...] available for discharge planning needs. NUBIA Rhodes, GOLF TEACHER Inpatient Car Repair Supervisor/Care Coordination [phone] * Plan of Care - Soco Yap [...] Escalera LSW - 10/28/2024 2:29 PM EDT [facility] Case Management/Social Work Department Progress Note Patient Information Patient Name: Blair Gilbert Hospital day: 3 Inpatient/Observation: Inpatient Level of Care: Transplant Admit date: 10/25/2024 Admission diagnosis: Liver transplant recipient (CMS-HCC) [Z94.4] PMH: has a past medical history of Alcoholic cirrhosis of liver (CMS-HCC), Esophageal varices (CMS-HCC), Hepatorenal syndrome ([facility]), Hypertension, Other hyperlipidemia (07/26/2024), Renal cell carcinoma ([facility]), Thrombocytopenia ([facility]), and Thyroid disease. PCP: Enedina Mcguire NP Home Pharmacy: [facility] [address] [place] [address] [facility] [address] [facility] [address] [facility] [place] NAA Falk - [address] [facility] [place] [address] [facility] [place] [address] Medical Insurance Coverage: Payor: [facility] / Plan: [employer] [...] discharge planning needs. NUBIA Escalera, RONALDO Cell [phone] * Plan of Care - Elaine Carrillo [...] at all times. Outcome: Completed Problem: Non-violent, llp-xtou-dwugnsrkrqc restraints Description: Less restrictive alternative interventions will [...] protection of medical procedures, or protection of durable medical equipment technician access. Outcome: Completed * Plan of [...] foods as appropriate. Outcome: Progressing Problem: Non-violent, ykn-rdyg-buycboknurd restraints Description: Less restrictive alternative interventions will [...] protection of medical procedures, or protection of durable medical equipment technician access. Outcome: Progressing * Plan of Care - Shanel Shen RN - 10/27/2024 9:00 AM EDT Problem: Non-violent, cvh-vkwk-gyqdkrfzghh restraints Description: Less restrictive alternative interventions will [...] - 10/26/2024 7:41 PM EDT Problem: Non-violent, ghe-vpln-jibttftmyye restraints Description: Less restrictive alternative interventions will [...] protection of medical procedures, or protection of durable medical equipment technician access. Outcome: Not Progressing Patient in [...] restraint flowsheet for further documentation. Problem: Non-violent, rms-njmn-givdjvjyjos restraints Description: Less restrictive alternative interventions will [...] protection of medical procedures, or protection of durable medical equipment technician access. Outcome: Progressing * Plan of [...] Routine Acute kidney injury superimposed on CKD ([facility]) Release Upon Ordering for 1 Occurrences starting 10/27/2024 Fungus culture Microbiology Routine Acute kidney injury superimposed on CKD ([facility] Release Upon Ordering for 1 Occurrences starting 10/27/2024 Routine Culture plus Stain Microbiology Routine Acute kidney injury superimposed on CKD ([facility]) Release Upon Ordering for 1 Occurrences starting 10/27/2024 Surgical Pathology Exam Pathology and Cytology Routine Acute kidney injury superimposed on CKD ([facility]) Release Upon Ordering for 1 Occurrences starting [...] Routine 10/31/2024 11:59 AM EDT US DUPLEX DSC-FMBEUS-XWKSCOE COMPLETE Routine 10/31/2024 10:19 AM EDT US [...] Routine 10/28/2024 5:31 PM EDT US DUPLEX JTR-GAQTNZ-XVWLPTZ COMPLETE STAT 10/28/2024 4:23 PM EDT US [...] Routine 10/27/2024 10:00 AM EDT US DUPLEX GQE-HISDFD-LISCUDA COMPLETE STAT 10/27/2024 9:51 AM EDT US [...] EDT Acute kidney injury superimposed on CKD ([facility]) DE RENAL ALTRNSPLJ IMPLTJ GRF W/LIAISON PLANNER NEPHRECTOMY 10/27/2024 2:32 AM EDT Acute kidney injury superimposed on CKD ([facility]) 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 smith [...] - 100 mg/dL 11/02/2024 5:45 PM EDT [facility] Blood 11/02/2024 5:44 PM EDT 11/02/2024 5:45 PM EDT Semaj Mcnair III, MD POINT OF CARE TEST ORDERABLES Final Result Performing Organization Address [facility] Co de Phone Number [facility] [address] [facility]. [address] * (ABNORMAL) POC Glucose Monitoring Device (11/02/2024 3:34 PM EDT) POC Glucose Monitoring Device 208(H) 70 - 100 mg/dL 11/02/2024 3:35 PM EDT [facility] Blood 11/02/2024 3:34 PM EDT 11/02/2024 3:35 PM EDT Semaj Mcnair III, MD POINT OF CARE TEST ORDERABLES Final Result Performing Organization Address [facility] Co de Phone Number [facility] [address] [facility]. [address] * (ABNORMAL) POC Glucose Monitoring Device (11/02/2024 1:18 PM EDT) POC Glucose Monitoring Device 225(H) 70 - 100 mg/dL 11/02/2024 1:19 PM EDT [facility] Blood 11/02/2024 1:18 PM EDT 11/02/2024 1:19 PM EDT Semaj Mcnair III, MD POINT OF CARE TEST ORDERABLES Final Result Performing Organization Address City/[facility] Co de Phone Number [facility] [address] [facility]. [address] * (ABNORMAL) POC Glucose Monitoring Device (11/02/2024 8:59 AM EDT) POC Glucose Monitoring Device 129(H) 70 - 100 mg/dL 11/02/2024 9:00 AM EDT [facility] Blood 11/02/2024 8:59 AM EDT 11/02/2024 9:00 AM EDT Semaj Mcnair III, MD POINT OF CARE TEST ORDERABLES Final Result Performing Organization Address City/[facility]/ZIP Co de Phone Number [facility] [address] * Tacrolimus level (11/02/2024 5:53 AM EDT) Tacrolimus (LC-MS) 7.4 3.0 - 15.0 ng/mL 11/02/2024 2:23 PM EDT [facility] Comment:Performed via liquid chromatography tandem mass spectrometry. Detection limit: 1 ng/mL. Individual target concentrations may vary due to target organ and time after transplant. This test has been developed and its performance characteristics determined by [facility] which is certified under the Clinical [...] ORDERABLES Denisse l Result Performing Organization Address City/[facility] Co de Phone Number [facility] [address] [facility]. [address] * (ABNORMAL) Renal Function Panel w/EGFR (11/02/2024 5:53 AM EDT) Sodium 140 133 - 146 mmol/L 11/02/2024 6:47 AM EDT [facility] Potassium 3.3(L) 3.5 - 5.3 mmol/L 11/02/2024 6:47 AM EDT [facility] Chloride 107 98 - 110 mmol/L 11/02/2024 6:47 AM EDT [facility] CO2 25 21 - 33 mmol/L 11/02/2024 6:47 AM EDT [facility] Anion Gap 8 3 - 16 mmol/L 11/02/2024 6:47 AM EDT [facility] BUN 31(H) 7 - 25 mg/dL 11/02/2024 6:47 AM EDT [facility] Creatinine 1.08 0.60 - 1.30 mg/dL 11/02/2024 6:47 AM EDT [facility] Glucose 150(H) 70 - 100 mg/dL 11/02/2024 6:47 AM EDT [facility] Calcium 7.8(L) 8.6 - 10.3 mg/dL 11/02/2024 6:47 AM EDT [facility] Phosphorus 2.0(L) 2.1 - 4.7 mg/dL 11/02/2024 6:47 AM EDT [facility] Albumin 3.2(L) 3.5 - 5.7 g/dL 11/02/2024 6:47 AM EDT [facility] Osmolality, Calculated 299 278 - 305 mOsm/kg 11/02/2024 6:47 AM EDT [facility] EGFR 88 11/02/2024 6:47 AM EDT [facility] Comment:As of 2021, [...] 11/02/2024 6:12 AM EDT us Beata Horner [facility] BLOOD ORDERABLES Denisse l Result [facility] [address] * (ABNORMAL) Magnesium (11/02/2024 5:53 AM EDT) Magnesium 1.3(L) 1.5 - 2.5 mg/dL 11/02/2024 6:47 AM EDT [facility] Plasma 11/02/2024 5:53 AM EDT 11/02/2024 6:12 AM EDT Beata Horner [facility] BLOOD ORDERABLES Denisse l Result [facility] [address] [facility]. [address] * (ABNORMAL) Hepatic Function Panel (11/02/2024 5:53 AM EDT) Total Bilirubin 1.6(H) 0.0 - 1.5 mg/dL 11/02/2024 6:47 AM EDT [facility] Bilirubin, Direct 0.81(H) 0.00 - 0.40 mg/dL 11/02/2024 6:47 AM EDT [facility] AST 30 13 - 39 U/L 11/02/2024 6:47 AM EDT [facility] ALT 66(H) 7 - 52 U/L 11/02/2024 6:47 AM EDT [facility] Alkaline Phosphatase 126(H) 36 - 125 U/L 11/02/2024 6:47 AM EDT [facility] Total Protein 4.6(L) 6.4 - 8.9 g/dL 11/02/2024 6:47 AM EDT [facility] Albumin 3.2(L) 3.5 - 5.7 g/dL 11/02/2024 6:47 AM EDT [facility] Bilirubin, Indirect 0.79 0.00 - 1.10 mg/dL 11/02/2024 6:47 AM EDT [facility] Plasma 11/02/2024 5:53 AM EDT 11/02/2024 6:12 AM EDT [employer] Horner [facility] BLOOD ORDERABLES Denisse l Result [facility] [address] * (ABNORMAL) CBC (11/02/2024 5:53 AM EDT) [facility] WBC 5.8 3.8 - 10.8 10E3/uL 11/02/2024 6:21 AM EDT [facility] RBC 3.12(L) 4.20 - 5.80 10E6/uL 11/02/2024 6:21 AM EDT [facility] Hemoglobin 9.2(L) 13.2 - 17.1 g/dL 11/02/2024 6:21 AM EDT [facility] Hematocrit 27.5(L) 38.5 - 50.0 % 11/02/2024 6:21 AM EDT [facility] MCV 87.9 80.0 - 100.0 fL 11/02/2024 6:21 AM EDT [facility] MCH 29.5 27.0 - 33.0 pg 11/02/2024 6:21 AM EDT [facility] MCHC 33.5 32.0 - 36.0 g/dL 11/02/2024 6:21 AM EDT [facility] RDW 17.5(H) 11.0 - 15.0 % 11/02/2024 6:21 AM EDT [facility] Platelets 61(L) 140 - 400 10E3/uL 11/02/2024 6:21 AM EDT [facility] MPV 7.9 7.5 - 11.5 fL 11/02/2024 6:21 AM EDT [facility] Whole Blood 11/02/2024 5:53 AM EDT 11/02/2024 6:[address] [facility] D[facility] Horner [facility] BLOOD ORDERABLES Denisse l Result [facility] [address] [place] [address], [facility] * (ABNORMAL) POC Glucose Monitoring Device (11/01/2024 9:26 PM EDT) POC Glucose Monitoring Device 199(H) 70 - 100 mg/dL 11/01/2024 9:27 PM EDT [facility] Blood 11/01/2024 9:26 PM EDT 11/01/2024 9:27 PM EDT Semaj Mcnair III, MD POINT OF CARE TEST ORDERABLES Final Result [facility] [address] * (ABNORMAL) POC Glucose Monitoring Device (11/01/2024 5:04 PM EDT) POC Glucose Monitoring Device 255(H) 70 - 100 mg/dL 11/01/2024 5:05 PM EDT [facility] Blood 11/01/2024 5:04 PM EDT 11/01/2024 5:05 PM EDT Semaj Mcnair III, MD POINT OF CARE TEST ORDERABLES Final Result Performing Organization Address City/[facility] Co de Phone Number [facility] [address] [place] [address] * (ABNORMAL) Renal Function Panel w/EGFR, STAT (11/01/2024 2:17 PM EDT) Sodium 139 133 - 146 mmol/L 11/01/2024 3:10 PM EDT [facility] Potassium 3.3(L) 3.5 - 5.3 mmol/L 11/01/2024 3:10 PM EDT [facility] Chloride 107 98 - 110 mmol/L 11/01/2024 3:10 PM EDT [facility] CO2 24 21 - 33 mmol/L 11/01/2024 3:10 PM EDT [facility] Anion Gap 8 3 - 16 mmol/L 11/01/2024 3:10 PM EDT [facility] BUN 35(H) 7 - 25 mg/dL 11/01/2024 3:10 PM EDT [facility] Creatinine 1.22 0.60 - 1.30 mg/dL 11/01/2024 3:10 PM EDT [facility] Glucose 203(H) 70 - 100 mg/dL 11/01/2024 3:10 PM EDT [facility] Calcium 8.3(L) 8.6 - 10.3 mg/dL 11/01/2024 3:10 PM EDT [facility] Phosphorus 2.2 2.1 - 4.7 mg/dL 11/01/2024 3:10 PM EDT [facility] Albumin 3.4(L) 3.5 - 5.7 g/dL 11/01/2024 3:10 PM EDT [facility] Osmolality, Calculated 302 278 - 305 mOsm/kg 11/01/2024 3:10 PM EDT [facility] EGFR 76 11/01/2024 3:10 PM EDT [facility] Comment:As of 2021, [...] Marks MD LAB BLOOD ORDERABLES Final Result [facility] [address] [facility] [place] [address], [facility] * X-ray Portable Abdomen AP view [...] - 100 mg/dL 11/01/2024 12:23 PM EDT [facility] Blood 11/01/2024 12:2 2 PM EDT 11/01/2024 12:23 PM EDT Semaj Mcnair III, MD POINT OF CARE TEST ORDERABLES Final Result Performing Organization Address City/[facility] Co de Phone Number [facility] [address] * (ABNORMAL) POC Glucose Monitoring Device (11/01/2024 8:50 AM EDT) POC Glucose Monitoring Device 175(H) 70 - 100 mg/dL 11/01/2024 8:51 AM EDT [facility] Blood 11/01/2024 8:50 AM EDT 11/01/2024 8:51 AM EDT Semaj Mcnair III, MD POINT OF CARE TEST ORDERABLES Final Result Performing Organization Address [facility] de Phone Number [facility] [address] [place] [address]. [address] * Tacrolimus level (11/01/2024 6:01 AM EDT) Tacrolimus (LC-MS) 7.5 3.0 - 15.0 ng/mL 11/01/2024 12:14 PM EDT [facility] Comment:Performed via liquid chromatography tandem mass spectrometry. Detection limit: 1 ng/mL. Individual target concentrations may vary due to target organ and time after transplant. This test has been developed and its performance characteristics determined by [facility] which is certified under the Clinical [...] ORDERABLES Denisse l Result Performing Organization Address City/[facility]/ZIP Co de Phone Number [facility] [address] [place] [address], [facility] * (ABNORMAL) Renal Function Panel w/EGFR (11/01/2024 6:01 AM EDT) Sodium 139 133 - 146 mmol/L 11/01/2024 6:57 AM EDT [facility] Potassium 3.3(L) 3.5 - 5.3 mmol/L 11/01/2024 6:57 AM EDT [facility] Chloride 108 98 - 110 mmol/L 11/01/2024 6:57 AM EDT [facility] CO2 22 21 - 33 mmol/L 11/01/2024 6:57 AM EDT [facility] Anion Gap 9 3 - 16 mmol/L 11/01/2024 6:57 AM EDT [facility] BUN 37(H) 7 - 25 mg/dL 11/01/2024 6:57 AM EDT [facility] Creatinine 1.30 0.60 - 1.30 mg/dL 11/01/2024 6:57 AM EDT [facility] Glucose 163(H) 70 - 100 mg/dL 11/01/2024 6:57 AM EDT [facility] Calcium 8.2(L) 8.6 - 10.3 mg/dL 11/01/2024 6:57 AM EDT [facility] Phosphorus 2.9 2.1 - 4.7 mg/dL 11/01/2024 6:57 AM EDT [facility] Albumin 3.1(L) 3.5 - 5.7 g/dL 11/01/2024 6:57 AM EDT [facility] Osmolality, Calculated 300 278 - 305 mOsm/kg 11/01/2024 6:57 AM EDT [facility] EGFR 71 11/01/2024 6:57 AM EDT [facility] Comment:As of 2021, [...] M, Olivia DC, Emerita ND, Madelyn [place], Felicai [place], et al. A Unifying Approach for GFR Estimation: Recommendations of the NKF-ASN Task Force on Reassessing the inclusion of Race in Diagnosing Kidney Disease. Am J Kidney Dis. 2020. Plasma 11/01/2024 6:01 AM EDT 11/01/2024 6:20 AM EDT Beata Garland Evens [facility] BLOOD ORDERABLES Denisse l Result Performing Organization Address City/[facility]/ZIP Co de Phone Number [facility] [address] [facility]. [address] * Magnesium (11/01/2024 6:01 AM EDT) Magnesium 1.5 1.5 - 2.5 mg/dL 11/01/2024 6:57 AM EDT [facility] Plasma 11/01/2024 6:01 AM EDT 11/01/2024 6:20 AM EDT [facility] BLOOD ORDERABLES Denisse l Result Performing Organization Address [facility] Co de Phone Number [facility] [address] [place] [address]. [address] * (ABNORMAL) Hepatic Function Panel (11/01/2024 6:01 AM EDT) Total Bilirubin 2.0(H) 0.0 - 1.5 mg/dL 11/01/2024 6:57 AM EDT [facility] Bilirubin, Direct 1.06(H) 0.00 - 0.40 mg/dL 11/01/2024 6:57 AM EDT [facility] AST 21 13 - 39 U/L 11/01/2024 6:57 AM EDT [facility] ALT 62(H) 7 - 52 U/L 11/01/2024 6:57 AM EDT [facility] Alkaline Phosphatase 114 36 - 125 U/L 11/01/2024 6:57 AM EDT [facility] Total Protein 4.6(L) 6.4 - 8.9 g/dL 11/01/2024 6:57 AM EDT [facility] Albumin 3.1(L) 3.5 - 5.7 g/dL 11/01/2024 6:57 AM EDT [facility] Bilirubin, Indirect 0.94 0.00 - 1.10 mg/dL 11/01/2024 6:57 AM EDT [facility] Plasma 11/01/2024 6:01 AM EDT 11/01/2024 6:20 AM EDT us Beata Horner [facility] BLOOD ORDERABLES Denisse l Result [facility] [address] [place] [address], [facility] * (ABNORMAL) CBC (11/01/2024 6:01 AM EDT) WBC 5.9 3.8 - 10.8 10E3/uL 11/01/2024 6:29 AM EDT [facility] RBC 3.19(L) 4.20 - 5.80 10E6/uL 11/01/2024 6:29 AM EDT [facility] Hemoglobin 9.5(L) 13.2 - 17.1 g/dL 11/01/2024 6:29 AM EDT [facility] Hematocrit 27.8(L) 38.5 - 50.0 % 11/01/2024 6:29 AM EDT [facility] MCV 87.1 80.0 - 100.0 fL 11/01/2024 6:29 AM EDT [facility] MCH 29.9 27.0 - 33.0 pg 11/01/2024 6:29 AM EDT [facility] MCHC 34.3 32.0 - 36.0 g/dL 11/01/2024 6:29 AM EDT [facility] RDW 17.4(H) 11.0 - 15.0 % 11/01/2024 6:29 AM EDT [facility] Platelets 56(L) 140 - 400 10E3/uL 11/01/2024 6:29 AM EDT [facility] MPV 8.3 7.5 - 11.5 fL 11/01/2024 6:29 AM EDT [facility] Whole Blood 11/01/2024 6:01 AM EDT 11/01/2024 6:19 AM EDT Beata Horner [facility] BLOOD ORDERABLES Denisse l Result [facility] [address] [facility]. [address] * (ABNORMAL) POC Glucose Monitoring Device (10/31/2024 9:15 PM EDT) POC Glucose Monitoring Device 171(H) 70 - 100 mg/dL 10/31/2024 9:15 PM EDT [facility] Blood 10/31/2024 9:15 PM EDT 10/31/2024 9:15 PM EDT Semaj Mcnair III, MD POINT OF CARE TEST ORDERABLES Final Result Performing Organization Address City/[facility]/ZIP Co de Phone Number [facility] [address] [facility]. [address] * (ABNORMAL) POC Glucose Monitoring Device (10/31/2024 5:56 PM EDT) POC Glucose Monitoring Device 179(H) 70 - 100 mg/dL 10/31/2024 5:57 PM EDT [facility] Blood 10/31/2024 5:56 PM EDT 10/31/2024 5:57 PM EDT Semaj Mcnair III, MD POINT OF CARE TEST ORDERABLES Final Result [facility] [address] [facility]. [address] * CT Abdomen and Pelvis WO [...] Adrenal gland: No focal nodule seen. Kidneys: [place] kidneys noted with nonobstructing calcifications on the right. Findings of postsurgical changes in the left false pass kidney. Mild right hydronephrosis without an obstructive [...] Adrenal gland: No focal nodule seen. Kidneys: [place] kidneys noted with nonobstructing calcifications on theright. Findings of postsurgical changes in the left false pass kidney. Mildright hydronephrosis without an obstructive course [...] QT: 400 ms QTc: 456 ms P Elizabeth: 49 degrees R Elizabeth: 3 degrees T Elizabeth: 14 degrees Diagnosis Line: NORMAL SINUS RHYTHM ^ NORMAL ECG ^ ^ Confirmed by MD JEANETTE, TORI ([id number]) on 11/02/2024 6:56:52 AM Priti Geiegr [facility] ECG ORDERABLES Final Result MUSE * (ABNORMAL) Urinalysis w/Rfl to Microscopic (10/31/2024 1:18 PM EDT) Color, UA Straw Yellow,Straw 10/31/2024 1:46 PM EDT [facility] Clarity, UA Clear Clear 10/31/2024 1:46 PM EDT [facility] Specific [place], UA 1.013 1.005 - 1.035 10/31/2024 1:46 PM EDT [facility] pH, UA 6.5 5.0 - 8.0 10/31/2024 1:46 PM EDT [facility] Protein, UA Negative Negative mg/dL 10/31/2024 1:46 PM EDT [facility] Glucose, UA Negative Negative mg/dL 10/31/2024 1:46 PM EDT [facility] Ketones, UA Negative Negative mg/dL 10/31/2024 1:46 PM EDT [facility] Bilirubin, UA Negative Negative 10/31/2024 1:46 PM EDT [facility] Blood, UA Large(A) Negative 10/31/2024 1:46 PM EDT [facility] Nitrite, UA Negative Negative 10/31/2024 1:46 PM EDT [facility] Urobilinogen, UA <2.0 0.2 - 1.9 mg/dL 10/31/2024 1:46 PM EDT [facility] Leukocyte Esterase, UA Negative Negative 10/31/2024 1:46 PM EDT [facility] RBC, UA >100(H) 0 - 3 /HPF 10/31/2024 1:46 PM EDT [facility] WBC, UA 3 0 - 5 /HPF 10/31/2024 1:46 PM EDT [facility] Hyaline Casts, UA 3(H) 0 - 2 /LPF 10/31/2024 1:46 PM EDT [facility] Urine 10/31/2024 1:18 PM EDT 10/31/2024 1:32 PM EDT Priti Geiger CNP URINE ORDERABLES Final Result Performing Organization Address City/[facility] Co de Phone Number [facility] [address] * (ABNORMAL) Post Kidney Transplant Urine Culture (10/31/2024 1:18 PM EDT) Culture Result Enterococcus faecium, Vancomycin Resistant(A) [facility] Comment: 1,000- <10,000 [...] ORDERA BLES Final Result Performing Organization Address [facility] Co de Phone Number [facility] [address] [facility]. [address] * (ABNORMAL) POC Glucose Monitoring Device (10/31/2024 11:59 AM EDT) POC Glucose Monitoring Device 130(H) 70 - 100 mg/dL 10/31/2024 12:21 PM EDT [facility] Blood 10/31/2024 11:5 9 AM EDT 10/31/2024 12:21 PM EDT Semaj Mcnair III, MD POINT OF CARE TEST ORDERABLES Final Result [facility] [address] [place] [address], [facility] * US Abdomen Limited (10/31/2024 10:19 [...] EXAM: US ABDOMEN LIMITED EXAM: US DUPLEX [id number] COMPLETE INDICATION: Post-op liver transplant COMPARISON: None [...] visualized secondary to poor acoustic windows. The false pass right kidney measures 11.6 cm in length. [...] EXAM: US ABDOMEN LIMITED EXAM: US DUPLEX [id number] COMPLETE INDICATION: Post-op liver transplant COMPARISON: None [...] well visualized secondary to poor acousticwindows. The false pass right kidney measures 11.6 cm in length. [...] at 10/31/2024 10:35 AM EDT Beata Horner [facility] US ORDERABLES Final R esult * US [...] 10/31/2024 10:29 AM EDT us Beata Horner [facility] IM US ORDERABLES Final R esult * US Duplex [id number]-Cwi-[id number] Comp (10/31/2024 10:19 AM EDT) Anatomical Region [...] EXAM: US ABDOMEN LIMITED EXAM: US DUPLEX [id number] COMPLETE INDICATION: Post-op liver transplant COMPARISON: None [...] visualized secondary to poor acoustic windows. The false pass right kidney measures 11.6 cm in length. [...] EXAM: US ABDOMEN LIMITED EXAM: US DUPLEX [id number] COMPLETE INDICATION: Post-op liver transplant COMPARISON: None [...] well visualized secondary to poor acousticwindows. The false pass right kidney measures 11.6 cm in length. [...] 10/31/2024 10:35 AM EDT us Beata Horner [facility] US ORDERABLES Final R esult * ECG 12-lead (MUSE) (10/31/2024 8:57 AM EDT) 10/31/2024 8:57 AM EDT Narrative MUSE - 11/01/2024 9:21 AM EDT Ventricular Rate: 83 BPM Atrial Rate: 83 BPM P-R Interval: 168 ms QRS Duration: 102 ms QT: 392 ms QTc: 460 ms P Elizabeth: 64 degrees R Elizabeth: -18 degrees T Elizabeth: 7 degrees Diagnosis Line: NORMAL SINUS RHYTHM ^ NORMAL ECG ^ ^ Confirmed by MD JOE, OTIS ([id number]) on 11/01/2024 9:21:13 AM us Priti Geiger [facility] ECG ORDERABLES Final Result Performing Organization Address City/[facility]/ZIP Co de Phone Number MUSE * (ABNORMAL) POC Glucose Monitoring Device (10/31/2024 8:44 AM EDT) [facility] POC Glucose Monitoring Device 145(H) 70 - 100 mg/dL 10/31/2024 8:45 AM EDT [facility] Blood 10/31/2024 8:44 AM EDT 10/31/2024 8:44 AM EDT Semaj Mcnair III, MD POINT OF CARE TEST ORDERABLES Final Result Performing Organization Address [facility] Co de Phone Number [facility] [address] [facility]. [address] * Tacrolimus level (10/31/2024 6:40 AM EDT) [facility] Tacrolimus (LC-MS) 8.4 3.0 - 15.0 ng/mL 10/31/2024 10:05 AM EDT [facility] Comment:Performed via liquid chromatography tandem mass spectrometry. Detection limit: 1 ng/mL. Individual target concentrations may vary due to target organ and time after transplant. This test has been developed and its performance characteristics determined by [facility] which is certified under the Clinical [...] ORDERABLES Denisse l Result Performing Organization Address [facility]/ZIP Co de Phone Number [facility] [address] [facility]. [address] * (ABNORMAL) Renal Function Panel w/EGFR (10/31/2024 6:40 AM EDT) [facility] Sodium 141 133 - 146 mmol/L 10/31/2024 8:09 AM EDT [facility] Potassium 3.5 3.5 - 5.3 mmol/L 10/31/2024 8:09 AM EDT [facility] Chloride 111(H) 98 - 110 mmol/L 10/31/2024 8:09 AM EDT [facility] CO2 20(L) 21 - 33 mmol/L 10/31/2024 8:09 AM EDT [facility] Anion Gap 10 3 - 16 mmol/L 10/31/2024 8:09 AM EDT [facility] BUN 54(H) 7 - 25 mg/dL 10/31/2024 8:09 AM EDT [facility] Creatinine 1.75(H) 0.60 - 1.30 mg/dL 10/31/2024 8:09 AM EDT [facility] Glucose 136(H) 70 - 100 mg/dL 10/31/2024 8:09 AM EDT [facility] Calcium 8.7 8.6 - 10.3 mg/dL 10/31/2024 8:09 AM EDT [facility] Phosphorus 4.1 2.1 - 4.7 mg/dL 10/31/2024 8:09 AM EDT [facility] Albumin 3.2(L) 3.5 - 5.7 g/dL 10/31/2024 8:09 AM EDT [facility] Osmolality, Calculated 309(H) 278 - 305 mOsm/kg 10/31/2024 8:09 AM EDT [facility] EGFR 50 10/31/2024 8:09 AM EDT [facility] Comment:As of 2021, [...] 10/31/2024 7:35 AM EDT [facility] [place] [facility] BLOOD ORDERABLES Denisse l Result Performing Organization Address City/[facility]/ZIP Co de Phone Number [facility] [address] [facility]. [address] * Magnesium (10/31/2024 6:40 AM EDT) Magnesium 1.8 1.5 - 2.5 mg/dL 10/31/2024 8:09 AM EDT [facility] Plasma 10/31/2024 6:40 AM EDT 10/31/2024 7:35 AM EDT [facility] [place] [facility] BLOOD ORDERABLES Denisse l Result Performing Organization Address [facility] Co de Phone Number [facility] [address] [facility]. [address] * (ABNORMAL) Hepatic Function Panel (10/31/2024 6:40 AM EDT) Total Bilirubin 2.7(H) 0.0 - 1.5 mg/dL 10/31/2024 8:09 AM EDT [facility] Bilirubin, Direct 1.57(H) 0.00 - 0.40 mg/dL 10/31/2024 8:09 AM EDT [facility] AST 26 13 - 39 U/L 10/31/2024 8:09 AM EDT [facility] [facility] ALT 68(H) 7 - 52 U/L 10/31/2024 8:09 AM EDT [facility] Alkaline Phosphatase 112 36 - 125 U/L 10/31/2024 8:09 AM EDT [facility] Total Protein 4.7(L) 6.4 - 8.9 g/dL 10/31/2024 8:09 AM EDT [facility] Albumin 3.2(L) 3.5 - 5.7 g/dL 10/31/2024 8:09 AM EDT [facility] Bilirubin, Indirect 1.13(H) 0.00 - 1.10 mg/dL 10/31/2024 8:09 AM EDT [facility] Plasma 10/31/2024 6:40 AM EDT 10/31/2024 7:35 AM EDT us Beata Horner [facility] BLOOD ORDERABLES Denisse l Result [facility] [address] [place] [address], [facility] * (ABNORMAL) CBC (10/31/2024 6:40 AM EDT) WBC 6.0 3.8 - 10.8 10E3/uL 10/31/2024 8:05 AM EDT [facility] RBC 3.14(L) 4.20 - 5.80 10E6/uL 10/31/2024 8:05 AM EDT [facility] Hemoglobin 9.6(L) 13.2 - 17.1 g/dL 10/31/2024 8:05 AM EDT [facility] Hematocrit 27.5(L) 38.5 - 50.0 % 10/31/2024 8:05 AM EDT [facility] MCV 87.6 80.0 - 100.0 fL 10/31/2024 8:05 AM EDT [facility] MCH 30.7 27.0 - 33.0 pg 10/31/2024 8:05 AM EDT [facility] MCHC 35.0 32.0 - 36.0 g/dL 10/31/2024 8:05 AM EDT [facility] RDW 17.9(H) 11.0 - 15.0 % 10/31/2024 8:05 AM EDT [facility] Platelets 44(L) 140 - 400 10E3/uL 10/31/2024 8:05 AM EDT [facility] Comment: CNV Specimen checked for clots. None detected. MPV 8.9 7.5 - 11.5 fL 10/31/2024 8:05 AM EDT [facility] Whole Blood 10/31/2024 6:40 AM EDT 10/31/2024 7:34 AM EDT Beata Horner [facility] BLOOD ORDERABLES Denisse l Result [facility] [address] [facility]. [address] * (ABNORMAL) POC Glucose Monitoring Device (10/30/2024 9:01 PM EDT) POC Glucose Monitoring Device 144(H) 70 - 100 mg/dL 10/30/2024 9:02 PM EDT [facility] Blood 10/30/2024 9:01 PM EDT 10/30/2024 9:01 PM EDT us Semaj Mcnair III, MD POINT OF CARE TEST ORDERABLES Final Result Performing Organization Address City/[facility]/ZIP Co de Phone Number [facility] [address] [facility]. [address] * (ABNORMAL) POC Glucose Monitoring Device (10/30/2024 5:37 PM EDT) POC Glucose Monitoring Device 124(H) 70 - 100 mg/dL 10/30/2024 5:47 PM EDT [facility] Blood 10/30/2024 5:37 PM EDT 10/30/2024 5:47 PM EDT Semaj Mcnair III, MD POINT OF CARE TEST ORDERABLES Final Result [facility] [address] [facility]. [address] * (ABNORMAL) POC Glucose Monitoring Device (10/30/2024 7:26 AM EDT) POC Glucose Monitoring Device 150(H) 70 - 100 mg/dL 10/30/2024 7:27 AM EDT [facility] Blood 10/30/2024 7:26 AM EDT 10/30/2024 7:27 AM EDT Semaj Mcnair III, MD POINT OF CARE TEST ORDERABLES Final Result Performing Organization Address [facility] Co de Phone Number [facility] [address] * Tacrolimus level (10/30/2024 7:13 AM EDT) Tacrolimus (LC-MS) 9.5 3.0 - 15.0 ng/mL 10/30/2024 2:53 PM EDT [facility] Comment:Performed via liquid chromatography tandem mass spectrometry. Detection limit: 1 ng/mL. Individual target concentrations may vary due to target organ and time after transplant. This test has been developed and its performance characteristics determined by [facility] which is certified under the Clinical Laboratory [...] ORDERABLES Final Re sult Performing Organization Address [facility] Co de Phone Number [facility] [address] [facility]. [address] * ECG 12-lead (MUSE) (10/30/2024 6:51 AM EDT) 10/30/2024 6:51 AM EDT Narrative MUSE - 11/01/2024 9:21 AM EDT Ventricular Rate: 92 BPM Atrial Rate: 92 BPM P-R Interval: 174 ms QRS Duration: 96 ms QT: 376 ms QTc: 464 ms P Elizabeth: 54 degrees R Elizabeth: -24 degrees T Elizabeth: 11 degrees Diagnosis Line: NORMAL SINUS RHYTHM ^ NORMAL ECG ^ ^ Confirmed by MD JOE, OTIS ([id number]) on 11/01/2024 9:21:09 AM Priti Geiger [facility] ECG ORDERABLES Final Result MUSE * (ABNORMAL) Renal Function Panel w/EGFR (10/30/2024 5:41 AM EDT) Sodium 140 133 - 146 mmol/L 10/30/2024 6:18 AM EDT [facility] Potassium 3.8 3.5 - 5.3 mmol/L 10/30/2024 6:18 AM EDT [facility] Chloride 111(H) 98 - 110 mmol/L 10/30/2024 6:18 AM EDT [facility] CO2 17(L) 21 - 33 mmol/L 10/30/2024 6:18 AM EDT [facility] Anion Gap 12 3 - 16 mmol/L 10/30/2024 6:18 AM EDT [facility] BUN 62(H) 7 - 25 mg/dL 10/30/2024 6:18 AM EDT [facility] Creatinine 1.96(H) 0.60 - 1.30 mg/dL 10/30/2024 6:18 AM EDT [facility] Glucose 116(H) 70 - 100 mg/dL 10/30/2024 6:18 AM EDT [facility] Calcium 9.0 8.6 - 10.3 mg/dL 10/30/2024 6:18 AM EDT [facility] Phosphorus 4.6 2.1 - 4.7 mg/dL 10/30/2024 6:18 AM EDT [facility] Albumin 3.2(L) 3.5 - 5.7 g/dL 10/30/2024 6:18 AM EDT [facility] Osmolality, Calculated 309(H) 278 - 305 mOsm/kg 10/30/2024 6:18 AM EDT [facility] EGFR 43 10/30/2024 6:18 AM EDT [facility] Comment:As of 2021, [...] 5:41 AM EDT 10/30/2024 5:47 AM EDT [employer] Horner [facility] BLOOD ORDERABLES Denisse l Result Performing Organization Address City/[facility]/ZIP Co de Phone Number [facility] [address] [facility]. [address] * Magnesium (10/30/2024 5:41 AM EDT) Magnesium 2.2 1.5 - 2.5 mg/dL 10/30/2024 6:18 AM EDT [facility] Plasma 10/30/2024 5:41 AM EDT 10/30/2024 5:[address] [facility] BLOOD ORDERABLES Denisse l Result [facility] [address] [facility]. [address] * (ABNORMAL) Hepatic Function Panel (10/30/2024 5:41 AM EDT) Total Bilirubin 3.6(H) 0.0 - 1.5 mg/dL 10/30/2024 6:18 AM EDT [facility] Bilirubin, Direct 1.95(H) 0.00 - 0.40 mg/dL 10/30/2024 6:18 AM EDT [facility] AST 33 13 - 39 U/L 10/30/2024 6:18 AM EDT [facility] ALT 71(H) 7 - 52 U/L 10/30/2024 6:18 AM EDT [facility] Alkaline Phosphatase 80 36 - 125 U/L 10/30/2024 6:18 AM EDT [facility] Total Protein 4.8(L) 6.4 - 8.9 g/dL 10/30/2024 6:18 AM EDT [facility] Albumin 3.2(L) 3.5 - 5.7 g/dL 10/30/2024 6:18 AM EDT [facility] Bilirubin, Indirect 1.65(H) 0.00 - 1.10 mg/dL 10/30/2024 6:18 AM EDT [facility] Plasma 10/30/2024 5:41 AM EDT 10/30/2024 5:47 AM EDT Beata Horner [facility] BLOOD ORDERABLES Denisse valle Result [facility] [address] [place] [address], [facility] * (ABNORMAL) CBC (10/30/2024 5:41 AM EDT) WBC 8.1 3.8 - 10.8 10E3/uL 10/30/2024 8:06 AM EDT [facility] RBC 3.29(L) 4.20 - 5.80 10E6/uL 10/30/2024 8:06 AM EDT [facility] Hemoglobin 10.1(L) 13.2 - 17.1 g/dL 10/30/2024 8:06 AM EDT [facility] Hematocrit 28.8(L) 38.5 - 50.0 % 10/30/2024 8:06 AM EDT [facility] MCV 87.6 80.0 - 100.0 fL 10/30/2024 8:06 AM EDT [facility] MCH 30.6 27.0 - 33.0 pg 10/30/2024 8:06 AM EDT [facility] MCHC 34.9 32.0 - 36.0 g/dL 10/30/2024 8:06 AM EDT [facility] RDW 18.1(H) 11.0 - 15.0 % 10/30/2024 8:06 AM EDT [facility] Platelets 44(L) 140 - 400 10E3/uL 10/30/2024 8:06 AM EDT [facility] Comment: CNV Specimen checked for clots. None detected. MPV 8.3 7.5 - 11.5 fL 10/30/2024 8:06 AM EDT [facility] Whole Blood 10/30/2024 5:41 AM EDT 10/30/2024 5:50 AM EDT Beata Horner [facility] BLOOD ORDERABLES Denisse l Result [facility] [address] [facility]. [address] * (ABNORMAL) POC Glucose Monitoring Device (10/29/2024 10:18 PM EDT) POC Glucose Monitoring Device 140(H) 70 - 100 mg/dL 10/29/2024 10:18 PM EDT [facility] Blood 10/29/2024 10:1 8 PM EDT 10/29/2024 10:18 PM EDT Semaj Mcnair III, MD POINT OF CARE TEST ORDERABLES Final Result Performing Organization Address [facility] Co de Phone Number [facility] [address] [facility]. [address] * (ABNORMAL) POC Glucose Monitoring Device (10/29/2024 6:42 PM EDT) POC Glucose Monitoring Device 152(H) 70 - 100 mg/dL 10/29/2024 6:43 PM EDT [facility] Blood 10/29/2024 6:42 PM EDT 10/29/2024 6:43 PM EDT Semaj Mcnair III, MD POINT OF CARE TEST ORDERABLES Final Result Performing Organization Address City/[facility]/ZIP Co de Phone Number [facility] [address] [facility]. [address] * (ABNORMAL) POC Glucose Monitoring Device (10/29/2024 11:35 AM EDT) Pathologist [facility] POC Glucose Monitoring Device 130(H) 70 - 100 mg/dL 10/29/2024 11:36 AM EDT [facility] Blood 10/29/2024 11:3 5 AM EDT 10/29/2024 11:36 AM EDT Semaj Mcnair III, MD POINT OF CARE TEST ORDERABLES Final Result Performing Organization Address City/[facility] Co de Phone Number [facility] [address] * ECG 12 lead (MUSE) (10/29/2024 9:34 AM EDT) 10/29/2024 9:34 AM EDT Narrative MUSE - 10/29/2024 10:34 PM EDT Ventricular Rate: 97 BPM Atrial Rate: 97 BPM P-R Interval: 186 ms QRS Duration: 104 ms QT: 382 ms QTc: 485 ms P Elizabeth: 54 degrees R Elizabeth: -21 degrees T Elizabeth: 1 degrees Diagnosis Line: NORMAL SINUS RHYTHM ^ NORMAL ECG ^ Confirmed by JORGE MACIAS ([id number]) on 10/29/2024 10:34:50 PM Afshan Bear MD ECG ORDERABLES Final Result Performing Organization Address [facility] de Phone Number MUSE * Tacrolimus level (10/29/2024 8:08 AM EDT) [facility] Tacrolimus (LC-MS) 10.4 3.0 - 15.0 ng/mL 10/29/2024 2:07 PM EDT [facility] Comment:Performed via liquid chromatography tandem mass spectrometry. Detection limit: 1 ng/mL. Individual target concentrations may vary due to target organ and time after transplant. This test has been developed and its performance characteristics determined by [facility] which is certified under the Clinical [...] EDT 10/29/2024 8:21 AM EDT Priti Geiger [facility] BLOOD ORDERABLES Final Re sult Performing Organization Address City/[facility]/ZIP Co de Phone Number [facility] [address] [place] [address], [facility] * Prepare RBC, leukoreduced, 1 Units (10/29/2024 6:16 AM EDT) Product Code L7051A96 [facility] Unit Number [id number] [facility] Dispense Status Presumed Transfused_PT [facility]LL Blood Expiration Date 915449091075 HCLL Coding System [id number] [facility] Blood Bank Product Shay Plata MD BLOOD BANK PRODUCT O RDERABLES Final Result Performing Organization Address City/[facility]/ZIP Co de Phone Number [facility] * Prepare RBC, leukoreduced, 1 Units (10/29/2024 6:15 AM EDT) Product Code R4064P63 [facility] Unit Number [id number] [facility] Dispense Status Presumed Transfused_PT [facility] Blood Expiration Date [id number] HCLL Coding System [id number] [facility] Blood Bank Product Carlos Marks MD BLOOD BANK PRODUCT ORDERABL ES Final Result Performing Organization Address City/[facility]/ZIP Co de Phone Number HC[facility] * Prepare RBC, leukoreduced, 1 Units (10/29/2024 6:15 AM EDT) Product Code V3648Q16 [facility] Unit Number [id number] [facility] Dispense Status Presumed Transfused_PT [facility] Blood Expiration Date [id number] HCLL Coding System [id number] [facility] Blood Bank Product John Moreno MD BLOOD BANK PRODUCT ORDERABLE S Final Result [facility] * (ABNORMAL) Renal Function Panel w/EGFR (10/29/2024 5:07 AM EDT) Sodium 144 133 - 146 mmol/L 10/29/2024 5:49 AM EDT [facility] Potassium 3.8 3.5 - 5.3 mmol/L 10/29/2024 5:49 AM EDT [facility] Chloride 113(H) 98 - 110 mmol/L 10/29/2024 5:49 AM EDT [facility] CO2 17(L) 21 - 33 mmol/L 10/29/2024 5:49 AM EDT [facility] Anion Gap 14 3 - 16 mmol/L 10/29/2024 5:49 AM EDT [facility] BUN 57(H) 7 - 25 mg/dL 10/29/2024 5:49 AM EDT [facility] Creatinine 1.93(H) 0.60 - 1.30 mg/dL 10/29/2024 5:49 AM EDT [facility] Glucose 110(H) 70 - 100 mg/dL 10/29/2024 5:49 AM EDT [facility] Calcium 9.3 8.6 - 10.3 mg/dL 10/29/2024 5:49 AM EDT [facility] Phosphorus 4.8(H) 2.1 - 4.7 mg/dL 10/29/2024 5:49 AM EDT [facility] Albumin 3.5 3.5 - 5.7 g/dL 10/29/2024 5:49 AM EDT [facility] Osmolality, Calculated 314(H) 278 - 305 mOsm/kg 10/29/2024 5:49 AM EDT [facility] EGFR 44 10/29/2024 5:49 AM EDT [facility] Comment:As of 2021, [...] 5:07 AM EDT 10/29/2024 5:13 AM EDT [employer] Horner [facility] BLOOD ORDERABLES Denisse l Result [facility] [address] [facility]. [address] * Magnesium (10/29/2024 5:07 AM EDT) Magnesium 2.1 1.5 - 2.5 mg/dL 10/29/2024 5:49 AM EDT [facility] Plasma 10/29/2024 5:07 AM EDT 10/29/2024 5:13 AM EDT [employer] [facility] BLOOD ORDERABLES Denisse l Result Performing Organization Address City/[facility]/ZIP Co de Phone Number [facility] [address] [facility]. [address] * (ABNORMAL) Hepatic Function Panel (10/29/2024 5:07 AM EDT) Total Bilirubin 4.2(H) 0.0 - 1.5 mg/dL 10/29/2024 5:49 AM EDT [facility] Bilirubin, Direct 2.85(H) 0.00 - 0.40 mg/dL 10/29/2024 5:49 AM EDT [facility] AST 31 13 - 39 U/L 10/29/2024 5:49 AM EDT [facility] ALT 88(H) 7 - 52 U/L 10/29/2024 5:49 AM EDT [facility] Alkaline Phosphatase 51 36 - 125 U/L 10/29/2024 5:49 AM EDT [facility] Total Protein 5.2(L) 6.4 - 8.9 g/dL 10/29/2024 5:49 AM EDT [facility] Albumin 3.5 3.5 - 5.7 g/dL 10/29/2024 5:49 AM EDT [facility] Bilirubin, Indirect 1.35(H) 0.00 - 1.10 mg/dL 10/29/2024 5:49 AM EDT [facility] Plasma 10/29/2024 5:07 AM EDT 10/29/2024 5:13 AM EDT us Beata Horner [facility] BLOOD ORDERABLES Denisse valle Result [facility] [address] [place] [address], [facility] * (ABNORMAL) CBC (10/29/2024 5:07 AM EDT) WBC 7.8 3.8 - 10.8 10E3/uL 10/29/2024 5:38 AM EDT [facility] RBC 3.05(L) 4.20 - 5.80 10E6/uL 10/29/2024 5:38 AM EDT [facility] Hemoglobin 9.0(L) 13.2 - 17.1 g/dL 10/29/2024 5:38 AM EDT [facility] Hematocrit 26.7(L) 38.5 - 50.0 % 10/29/2024 5:38 AM EDT [facility] MCV 87.4 80.0 - 100.0 fL 10/29/2024 5:38 AM EDT [facility] MCH 29.7 27.0 - 33.0 pg 10/29/2024 5:38 AM EDT [facility] MCHC 33.9 32.0 - 36.0 g/dL 10/29/2024 5:38 AM EDT [facility] RDW 18.3(H) 11.0 - 15.0 % 10/29/2024 5:38 AM EDT [facility] Platelets 41(L) 140 - 400 10E3/uL 10/29/2024 5:38 AM EDT [facility] Comment: CNV Specimen checked for clots. None detected. MPV 7.5 7.5 - 11.5 fL 10/29/2024 5:38 AM EDT [facility] Whole Blood 10/29/2024 5:07 AM EDT 10/29/2024 5:13 AM EDT us Beata Dada Horner [facility] BLOOD ORDERABLES Denisse l Result [facility] [address] [place] [address], [facility] * (ABNORMAL) TEG-Bypass/ECMO/Liver HN (Factor function, Platelet/Fibrin Clot Strength w/Clot Breakdown, Heparinase In All Channels) (10/29/2024 5:07 AM EDT) Citrated Kaolin Reaction Time (TEGECMOLIVER) 8.9 4.6 - 9.1 minutes 10/29/2024 7:04 AM EDT [facility] Citrated Kaolin W/Heparinase Reaction Time (TEGECMOLIVER) 7.4 4.3 - 8.3 minutes 10/29/2024 7:04 AM EDT [facility] Citrated Kaolin Maximum Amplitude (TEGECMOLIVER) 52.9 52.0 - 69.0 mm 10/29/2024 7:04 AM EDT [facility] Citrated Functional Fibrinogen W/Heparinase Maximum Amplitude(TEGEC MOLIVER) 20.7 15.0 - 34.0 mm 10/29/2024 7:04 AM EDT [facility] Citrated Rapid Teg W/Heparinase Maximum Amplitude (TEGECMOLIVER) 49.7(L) 53.0 - 69.0 mm 10/29/2024 7:04 AM EDT [facility] Citrated Kaolin w/Heparinase Percent Lysis (TEGECMOLIVER) 0.0 0.0 - 3.2 % 10/29/2024 7:04 AM EDT [facility] Whole Blood (Citrate) 10/29/2024 5:07 AM EDT 10/29/2024 5:10 AM EDT Kemar Sahni MD LAB BLOOD ORDERABLES Final Result [facility] [address] [facility]. [address] * (ABNORMAL) TEG-Bypass/ECMO/Liver HN (Factor function, Platelet/Fibrin Clot Strength w/Clot Breakdown, Heparinase In All Channels) (10/28/2024 11:55 PM EDT) [facility] Citrated Kaolin Reaction Time (TEGECMOLIVER) 8.6 4.6 - 9.1 minutes 10/29/2024 2:01 AM EDT [facility] Citrated Kaolin W/Heparinase Reaction Time (TEGECMOLIVER) 8.7(H) 4.3 - 8.3 minutes 10/29/2024 2:01 AM EDT [facility] Citrated Kaolin Maximum Amplitude (TEGECMOLIVER) 47.9(L) 52.0 - 69.0 mm 10/29/2024 2:01 AM EDT [facility] Citrated Functional Fibrinogen W/Heparinase Maximum Amplitude(TEGEC MOLIVER) 22.0 15.0 - 34.0 mm 10/29/2024 2:01 AM EDT [facility] Citrated Rapid Teg W/Heparinase Maximum Amplitude (TEGECMOLIVER) 45.9(L) 53.0 - 69.0 mm 10/29/2024 2:01 AM EDT [facility] Citrated Kaolin w/Heparinase Percent Lysis (TEGECMOLIVER) 0.0 0.0 - 3.2 % 10/29/2024 2:01 AM EDT [facility] Whole Blood (Citrate) 10/28/2024 11:55 PM EDT 10/28/2024 11:58 PM EDT Kemar Sahni MD LAB BLOOD ORDERABLES Final Result [facility] [address] * (ABNORMAL) CBC, STAT (10/28/2024 8:04 PM EDT) WBC 3.9 3.8 - 10.8 10E3/uL 10/28/2024 8:36 PM EDT [facility] RBC 2.66(L) 4.20 - 5.80 10E6/uL 10/28/2024 8:36 PM EDT [facility] Hemoglobin 8.0(L) 13.2 - 17.1 g/dL 10/28/2024 8:36 PM EDT [facility] Hematocrit 23.0(L) 38.5 - 50.0 % 10/28/2024 8:36 PM EDT [facility] MCV 86.4 80.0 - 100.0 fL 10/28/2024 8:36 PM EDT [facility] MCH 29.9 27.0 - 33.0 pg 10/28/2024 8:36 PM EDT [facility] MCHC 34.6 32.0 - 36.0 g/dL 10/28/2024 8:36 PM EDT [facility] RDW 18.6(H) 11.0 - 15.0 % 10/28/2024 8:36 PM EDT [facility] Platelets 29(L) 140 - 400 10E3/uL 10/28/2024 8:36 PM EDT [facility] Comment: CNV Specimen checked for clots. None detected. MPV 7.8 7.5 - 11.5 fL 10/28/2024 8:36 PM EDT [facility] Whole Blood 10/28/2024 8:04 PM EDT 10/28/2024 8:14 PM EDT us Carlos Marks MD LAB BLOOD ORDERABLES Final Result [facility] [address] [place] [address], [facility] * (ABNORMAL) POC Glucose Monitoring Device (10/28/2024 8:03 PM EDT) POC Glucose Monitoring Device 122(H) 70 - 100 mg/dL 10/28/2024 8:04 PM EDT [facility] Blood 10/28/2024 8:03 PM EDT 10/28/2024 8:04 PM EDT Semaj Mcnair III, MD POINT OF CARE TEST ORDERABLES Final Result [facility] [address] * (ABNORMAL) TEG-Bypass/ECMO/Liver HN (Factor function, Platelet/Fibrin Clot Strength w/Clot Breakdown, Heparinase In All Channels) (10/28/2024 6:39 PM EDT) [facility] Citrated Kaolin Reaction Time (TEGECMOLIVER) 9.0 4.6 - 9.1 minutes 10/28/2024 7:50 PM EDT [facility] Citrated Kaolin W/Heparinase Reaction Time (TEGECMOLIVER) 8.3 4.3 - 8.3 minutes 10/28/2024 7:50 PM EDT [facility] Citrated Kaolin Maximum Amplitude (TEGECMOLIVER) 47.6(L) 52.0 - 69.0 mm 10/28/2024 7:50 PM EDT [facility] Citrated Functional Fibrinogen W/Heparinase Maximum Amplitude(TEGEC MOLIVER) 20.4 15.0 - 34.0 mm 10/28/2024 7:50 PM EDT [facility] Citrated Rapid Teg W/Heparinase Maximum Amplitude (TEGECMOLIVER) 44.0(L) 53.0 - 69.0 mm 10/28/2024 7:50 PM EDT [facility] Citrated Kaolin w/Heparinase Percent Lysis (TEGECMOLIVER) 0.0 0.0 - 3.2 % 10/28/2024 7:50 PM EDT [facility] Whole Blood (Citrate) 10/28/2024 6:39 PM EDT 10/28/2024 6:42 PM EDT us Kemar Sahni MD LAB BLOOD ORDERABLES Final Result [facility] [address] [facility]. [address] * (ABNORMAL) POC Glucose Monitoring Device (10/28/2024 5:31 PM EDT) POC Glucose Monitoring Device 130(H) 70 - 100 mg/dL 10/28/2024 5:31 PM EDT [facility] Blood 10/28/2024 5:31 PM EDT 10/28/2024 5:31 PM EDT us Semaj Mcnair III, MD POINT OF CARE TEST ORDERABLES Final Result Performing Organization Address City/[facility]/ZIP Co de Phone Number [facility] [address] * Transfuse RBC Transfusion Rate: Per dept routine (10/28/2024 5:23 PM EDT) us Shay Plata MD NURSING TREATMENT OR DERABLES - BLOOD ADMIN Final Result Performing Organization Address [facility] Hospital/[facility] Co de Phone Number EXTERNAL * Transfuse RBC Transfusion Rate: Per dept routine, 1 Units (10/28/2024 5:23 PM EDT) us Shay Plata MD NURSING TREATMENT OR DERABLES - BLOOD ADMIN Final Result Performing Organization Address [facility] Co de Phone Number [...] EXAM: US ABDOMEN LIMITED EXAM: US DUPLEX [id number] COMPLETE INDICATION: Post-op liver transplant DATE: 10/28/2024 [...] retrohepatic inferior vena cava is patent. The false pass right kidney is partially visualized. A prominent [...] EXAM: US ABDOMEN LIMITED EXAM: US DUPLEX [id number] COMPLETE INDICATION: Post-op liver transplant DATE: 10/28/2024 [...] retrohepatic inferior vena cava is patent. The false pass right kidney is partially visualized. A prominent [...] 4:42 PM EDT us Shay Plata MD [facility] ORDERABLES Fi nal Result * US Duplex [id number]-Qzt-[id number] Comp (10/28/2024 4:23 PM EDT) Anatomical Region [...] EXAM: US ABDOMEN LIMITED EXAM: US DUPLEX [id number] COMPLETE INDICATION: Post-op liver transplant DATE: 10/28/2024 [...] retrohepatic inferior vena cava is patent. The false pass right kidney is partially visualized. A prominent [...] EXAM: US ABDOMEN LIMITED EXAM: US DUPLEX [id number] COMPLETE INDICATION: Post-op liver transplant DATE: 10/28/2024 [...] retrohepatic inferior vena cava is patent. The false pass right kidney is partially visualized. A prominent [...] 10/28/2024 4:42 PM EDT Shay Plata MD [facility] ORDERABLES Fi nal Result * (ABNORMAL) CBC, STAT (10/28/2024 2:49 PM EDT) [facility] Signature WBC 4.0 3.8 - 10.8 10E3/uL 10/28/2024 3:07 PM EDT [facility] RBC 2.44(L) 4.20 - 5.80 10E6/uL 10/28/2024 3:07 PM EDT [facility] Hemoglobin 7.5(L) 13.2 - 17.1 g/dL 10/28/2024 3:07 PM EDT [facility] Hematocrit 21.4(L) 38.5 - 50.0 % 10/28/2024 3:07 PM EDT [facility] MCV 87.6 80.0 - 100.0 fL 10/28/2024 3:07 PM EDT [facility] MCH 30.6 27.0 - 33.0 pg 10/28/2024 3:07 PM EDT [facility] MCHC 34.9 32.0 - 36.0 g/dL 10/28/2024 3:07 PM EDT [facility] RDW 18.4(H) 11.0 - 15.0 % 10/28/2024 3:07 PM EDT [facility] Platelets 30(L) 140 - 400 10E3/uL 10/28/2024 3:07 PM EDT [facility] Comment: CNV Specimen checked for clots. None detected. MPV 7.7 7.5 - 11.5 fL 10/28/2024 3:07 PM EDT [facility] Whole Blood 10/28/2024 2:49 PM EDT 10/28/2024 2:53 PM EDT us Carlos Marks MD LAB BLOOD ORDERABLES Final Result Performing Organization Address City/State/[facility] Co de Phone Number [facility] [address] * ECG 12 lead (MUSE) (10/28/2024 1:22 PM EDT) 10/28/2024 1:22 PM EDT Narrative MUSE - 10/29/2024 10:34 PM EDT Ventricular Rate: 104 BPM Atrial Rate: 104 BPM P-R Interval: 172 ms QRS Duration: 90 ms QT: 354 ms QTc: 465 ms P Elizabeth: 58 degrees R Elizabeth: -19 degrees T Elizabeth: 38 degrees Diagnosis Line: SINUS TACHYCARDIA ^ OTHERWISE NORMAL ECG ^ ^ Confirmed by JOREG MACIAS ([id number]) on 10/29/2024 10:34:22 PM us Hillary Fernandes PharmD ECG ORDERABLES Final Res ult MUSE * (ABNORMAL) POC Glucose Monitoring Device (10/28/2024 12:54 PM EDT) POC Glucose Monitoring Device 119(H) 70 - 100 mg/dL 10/28/2024 12:55 PM EDT [facility] Blood 10/28/2024 12:5 4 PM EDT 10/28/2024 12:55 PM EDT us Semaj Mcnair III, MD POINT OF CARE TEST ORDERABLES Final Result Performing Organization Address City/[facility]/ZIP Co de Phone Number [facility] [address] * Transfuse RBC Transfusion Rate: Per dept routine (10/28/2024 12:31 PM EDT) us Carlos Marks MD NURSING TREATMENT ORDERABLE S - BLOOD ADMIN Final Result Performing Organization Address City/[facility]/ZIP Co de Phone Number EXTERNAL * Transfuse RBC Transfusion Rate: Per dept routine, 1 Units (10/28/2024 12:31 PM EDT) us Carlos Marks MD NURSING TREATMENT ORDERABLE S - BLOOD ADMIN Final Result Performing Organization Address City/[facility] Co de Phone Number EXTERNAL * Protime-INR, STAT (10/28/2024 11:09 AM EDT) Protime 14.3 12.1 - 15.1 seconds 10/28/2024 11:29 AM EDT [facility] INR 1.1 0.9 - 1.1 10/28/2024 11:29 AM EDT [facility] Comment: RECOMMENDED THERAPEUTIC RANGES USING INR : Stable oral anticoagulant therapy: 2.0 - 3.0 Mechanical prosthetic heart valve: 2.5 - 3.5 Recurrent acute myocardial infarction: 2.5 - 3.5 Plasma 10/28/2024 11:0 9 AM EDT 10/28/2024 11:16 AM EDT us Carlos Marks MD LAB BLOOD ORDERABLES Final Result Performing Organization Address [facility] Co de Phone Number [facility] [address] * (ABNORMAL) Lactic Acid, STAT (10/28/2024 11:09 AM EDT) Lactate 0.3(L) 0.5 - 2.2 mmol/L 10/28/2024 11:37 AM EDT [facility] Plasma 10/28/2024 11:0 9 AM EDT 10/28/2024 11:15 AM EDT us Carlos Marks MD LAB BLOOD ORDERABLES Final Result Performing Organization Address [facility] Co de Phone Number [facility] [address] [facility]. [address] * Magnesium, STAT (10/28/2024 11:09 AM EDT) Magnesium 2.1 1.5 - 2.5 mg/dL 10/28/2024 11:47 AM EDT [facility] Plasma 10/28/2024 11:0 9 AM EDT 10/28/2024 11:16 AM EDT us Carlos Marks MD LAB BLOOD ORDERABLES Final Result Performing Organization Address [facility] Co de Phone Number [facility] [address] [facility]. [address] * (ABNORMAL) Renal Function Panel w/EGFR, STAT (10/28/2024 11:09 AM EDT) Sodium 144 133 - 146 mmol/L 10/28/2024 11:47 AM EDT [facility] Potassium 3.4(L) 3.5 - 5.3 mmol/L 10/28/2024 11:47 AM EDT [facility] Chloride 112(H) 98 - 110 mmol/L 10/28/2024 11:47 AM EDT [facility] CO2 22 21 - 33 mmol/L 10/28/2024 11:47 AM EDT [facility] Anion Gap 10 3 - 16 mmol/L 10/28/2024 11:47 AM EDT [facility] BUN 57(H) 7 - 25 mg/dL 10/28/2024 11:47 AM EDT [facility] Creatinine 2.01(H) 0.60 - 1.30 mg/dL 10/28/2024 11:47 AM EDT [facility] Glucose 108(H) 70 - 100 mg/dL 10/28/2024 11:47 AM EDT [facility] Calcium 8.8 8.6 - 10.3 mg/dL 10/28/2024 11:47 AM EDT [facility] Phosphorus 4.0 2.1 - 4.7 mg/dL 10/28/2024 11:47 AM EDT [facility] Albumin 3.3(L) 3.5 - 5.7 g/dL 10/28/2024 11:47 AM EDT [facility] Osmolality, Calculated 314(H) 278 - 305 mOsm/kg 10/28/2024 11:47 AM EDT [facility] EGFR 42 10/28/2024 11:47 AM [facility] Comment:As of 2021, the [...] Marks MD LAB BLOOD ORDERABLES Final Result [facility] [address] * (ABNORMAL) TEG-Bypass/ECMO/Liver HN (Factor function, Platelet/Fibrin Clot Strength w/Clot Breakdown, Heparinase In All Channels) (10/28/2024 11:09 AM EDT) [facility] Citrated Kaolin Reaction Time (TEGECMOLIVER) 9.2(H) 4.6 - 9.1 minutes 10/28/2024 12:30 PM EDT [facility] Citrated Kaolin W/Heparinase Reaction Time (TEGECMOLIVER) 9.6(H) 4.3 - 8.3 minutes 10/28/2024 12:30 PM EDT [facility] Citrated Kaolin Maximum Amplitude (TEGECMOLIVER) 51.2(L) 52.0 - 69.0 mm 10/28/2024 12:30 PM EDT [facility] Citrated Functional Fibrinogen W/Heparinase Maximum Amplitude(TEGEC MOLIVER) 21.6 15.0 - 34.0 mm 10/28/2024 12:30 PM EDT [facility] Citrated Rapid Teg W/Heparinase Maximum Amplitude (TEGECMOLIVER) 49.3(L) 53.0 - 69.0 mm 10/28/2024 12:30 PM EDT [facility] Citrated Kaolin w/Heparinase Percent Lysis (TEGECMOLIVER) 0.0 0.0 - 3.2 % 10/28/2024 12:30 PM EDT [facility] Whole Blood (Citrate) 10/28/2024 11:09 AM EDT 10/28/2024 11:14 AM EDT Kemar Sahni MD LAB BLOOD ORDERABLES Final Result [facility] [address] * (ABNORMAL) CBC (10/28/2024 10:21 AM EDT) WBC 4.1 3.8 - 10.8 10E3/uL 10/28/2024 10:41 AM EDT [facility] RBC 2.30(L) 4.20 - 5.80 10E6/uL 10/28/2024 10:41 AM EDT [facility] Hemoglobin 7.1(L) 13.2 - 17.1 g/dL 10/28/2024 10:41 AM EDT [facility] Hematocrit 20.4(L) 38.5 - 50.0 % 10/28/2024 10:41 AM EDT [facility] MCV 88.5 80.0 - 100.0 fL 10/28/2024 10:41 AM EDT [facility] MCH 30.7 27.0 - 33.0 pg 10/28/2024 10:41 AM EDT [facility] MCHC 34.7 32.0 - 36.0 g/dL 10/28/2024 10:41 AM EDT [facility] RDW 18.7(H) 11.0 - 15.0 % 10/28/2024 10:41 AM EDT [facility] Platelets 37(L) 140 - 400 10E3/uL 10/28/2024 10:41 AM EDT [facility] Comment: CNV Specimen checked for clots. None detected. MPV 7.6 7.5 - 11.5 fL 10/28/2024 10:41 AM EDT [facility] Whole Blood 10/28/2024 10:2 1 AM EDT 10/28/2024 10:29 AM EDT us Carlos Marks MD LAB BLOOD ORDERABLES Final Result [facility] [address] [place] [address], [facility] * POC Glucose Monitoring Device (10/28/2024 9:07 AM EDT) POC Glucose Monitoring Device 97 70 - 100 mg/dL 10/28/2024 9:08 AM EDT [facility] Blood 10/28/2024 9:07 AM EDT 10/28/2024 9:08 AM EDT Semaj Mcnair III, MD POINT OF CARE TEST ORDERABLES Final Result Performing Organization Address [facility] Co de Phone Number [facility] [address] [facility]. [address] * (ABNORMAL) Tacrolimus level (10/28/2024 8:20 AM EDT) Pathologist [facility] Tacrolimus (LC-MS) <1.0(L) 3.0 - 15.0 ng/mL 10/28/2024 2:02 PM EDT [facility] Comment:Performed via liquid chromatography tandem mass spectrometry. Detection limit: 1 ng/mL. Individual target concentrations may vary due to target organ and time after transplant. This test has been developed and its performance characteristics determined by [facility] which is certified under the Clinical [...] EDT 10/28/2024 8:29 AM EDT Priti Geiger [facility] BLOOD ORDERABLES Final Re sult Performing Organization Address [facility] Co de Phone Number [facility] [address] [facility]. [address] * (ABNORMAL) POC Glucose Monitoring Device (10/28/2024 8:10 AM EDT) POC Glucose Monitoring Device 102(H) 70 - 100 mg/dL 10/28/2024 8:11 AM EDT [facility] Blood 10/28/2024 8:10 AM EDT 10/28/2024 8:11 AM EDT Semaj Mcnair III, MD POINT OF CARE TEST ORDERABLES Final Result Performing Organization Address [facility] Co de Phone Number [facility] [address] * POC Glucose Monitoring Device (10/28/2024 6:17 AM EDT) POC Glucose Monitoring Device 100 70 - 100 mg/dL 10/28/2024 6:18 AM EDT [facility] Blood 10/28/2024 6:17 AM EDT 10/28/2024 6:18 AM EDT Semaj Mcnair III, MD POINT OF CARE TEST ORDERABLES Final Result Performing Organization Address [facility] de Phone Number [facility] [address] [facility]. [address] * Prepare Platelets, leukoreduced (10/28/2024 6:15 AM EDT) Product Code F2865C51 HCLL Unit Number [id number] HCLL Dispense Status Presumed Transfused_PT HCLL Blood Expiration Date HCLL Coding System [id number] HCLL Product Code Z6450L09 HCLL Unit Number [id number] HCLL Dispense Status Presumed Transfused_PT HCLL Blood Expiration Date HCLL Coding System [id number] HCLL us Attending Provider Unknown BLOOD BANK PRODUCT OR DERABLES Final Result Performing Organization Address [facility] Co de Phone Number HCLL * Prepare Fresh Frozen Plasma (10/28/2024 6:15 AM EDT) Product Code B2462B76 HCLL Unit Number [id number] HCLL Dispense Status Released from Crossmatch_RE HCLL Blood Expiration Date HCLL Coding System GPXB872 HCLL Product Code M9760L67 HCLL Unit Number [id number] HCLL Dispense Status Presumed Transfused_PT HCLL Blood Expiration Date HCLL Coding System IZHB937 HCLL Product Code P0047G43 HCLL Unit Number [id number] HCLL Dispense Status Released from Crossmatch_RE HCLL Blood Expiration Date HCLL Coding System BEZO745 HCLL Product Code M6661D99 HCLL Unit Number [id number] HCLL Dispense Status Presumed Transfused_PT HCLL Blood Expiration Date HCLL Coding System UKDR219 HCLL Product Code W4350L07 HCLL Unit Number [id number] HCLL Dispense Status Released from Crossmatch_RE HCLL Blood Expiration Date [id number] HCLL Coding System GSJP983 HCLL us Attending Provider Unknown BLOOD BANK PRODUCT OR DERABLES Final Result HCLL * Prepare RBC, leukoreduced (10/28/2024 6:15 AM EDT) Product Code D9941M39 HCLL Unit Number [id number] HCLL Dispense Status Released from Crossmatch_RE HCLL Blood Expiration Date HCLL Coding System VZFS960 HCLL Product Code C0644I45 HCLL Unit Number [id number] HCLL Dispense Status Presumed Transfused_PT HCLL Blood Expiration Date 379053694027 HCLL Coding System VPLM295 HCLL Product Code F3506O59 HCLL Unit Number [id number] HCLL Dispense Status Released from Crossmatch_RE HCLL Blood Expiration Date HCLL Coding System CLAS285 HCLL Product Code P4280H41 HCLL Unit Number [id number] HCLL Dispense Status Presumed Transfused_PT HCLL Blood Expiration Date HCLL Coding System NWSQ361 HCLL Product Code W4838H06 HCLL Unit Number [id number] HCLL Dispense Status Released from Crossmatch_RE HCLL Blood Expiration Date HCLL Coding System ZIVU129 HCLL Attending Provider Unknown BLOOD BANK PRODUCT OR DERABLES Final Result Performing Organization Address [facility] Co de Phone Number HCLL * Prepare Platelets, leukoreduced, 1 Units (10/28/2024 6:15 AM EDT) Product Code I5956D14 HCLL Unit Number [id number] HCLL Dispense Status Presumed Transfused_PT HCLL Blood Expiration Date [id number] HCLL Coding System RTSB344 HCLL Blood Bank Product John Pina MD BLOOD BANK PRODUCT ORDERABLES F inal Result Performing Organization Address [facility] de Phone Number HCLL * Prepare Cryoprecipitate, 1 Units (10/28/2024 6:15 AM EDT) Product Code X2213J36 HCLL Unit Number [id number] HCLL Dispense Status Presumed Transfused_PT HCLL Blood Expiration Date HCLL Coding System NPBH345 HCLL Product Code G8018T44 HCLL Unit Number [id number] HCLL Dispense Status Presumed Transfused_PT HCLL Blood Expiration Date [id number] HCLL Coding System TQVI505 HCLL Blood Bank Product John Pina MD BLOOD BANK PRODUCT ORDERABLES F inal Result Performing Organization Address [facility] Co de Phone Number HCLL * Prepare Fresh Frozen Plasma, 1 Units (10/28/2024 6:15 AM EDT) Product Code L3689L84 HCLL Unit Number [id number] HCLL Dispense Status Presumed Transfused_PT HCLL Blood Expiration Date 098339504183 HCLL Coding System WADS730 HCLL Blood Bank Product John Pina MD BLOOD BANK PRODUCT ORDERABLES F inal Result Performing Organization Address [facility] Co de Phone Number HCLL * Prepare Cryoprecipitate, 1 Units (10/28/2024 6:15 AM EDT) Product Code A9014R68 HCLL Unit Number [id number] HCLL Dispense Status Presumed Transfused_PT HCLL Blood Expiration Date HCLL Coding System IYRZ594 HCLL Product Code F5493O06 HCLL Unit Number [id number] HCLL Dispense Status Presumed Transfused_PT HCLL Blood Expiration Date HCLL Coding System VJVD158 HCLL Product Code J4263X63 HCLL Unit Number [id number] HCLL Dispense Status Presumed Transfused_PT HCLL Blood Expiration Date HCLL Coding System OVMZ905 HCLL Product Code B3368U88 HCLL Unit Number [id number] HCLL Dispense Status Presumed Transfused_PT HCLL Blood Expiration Date 080391308054 HCLL Coding System BWIU632 HCLL Blood Bank Product John Pina MD BLOOD BANK PRODUCT ORDERABLES F inal Result Performing Organization Address [facility] de Phone Number HCLL * (ABNORMAL) POC Glucose Monitoring Device (10/28/2024 4:55 AM EDT) POC Glucose Monitoring Device 104(H) 70 - 100 mg/dL 10/28/2024 4:57 AM EDT [facility] Blood 10/28/2024 4:55 AM EDT 10/28/2024 4:57 AM EDT Semaj Mcnair III, MD POINT OF CARE TEST ORDERABLES Final Result Performing Organization Address [facility] Co de Phone Number [facility] [address] [place] [address], [facility] * TEG-Bypass/ECMO/Liver HN (Factor function, Platelet/Fibrin Clot Strength w/Clot Breakdown, Heparinase In All Channels) (10/28/2024 4:13 AM EDT) Citrated Kaolin Reaction Time (TEGECMOLIVER) 7.2 4.6 - 9.1 minutes 10/28/2024 5:38 AM EDT [facility] Citrated Kaolin W/Heparinase Reaction Time (TEGECMOLIVER) 7.8 4.3 - 8.3 minutes 10/28/2024 5:38 AM EDT [facility] Citrated Kaolin Maximum Amplitude (TEGECMOLIVER) 53.0 52.0 - 69.0 mm 10/28/2024 5:38 AM EDT [facility] Citrated Functional Fibrinogen W/Heparinase Maximum Amplitude(TEGEC MOLIVER) 21.4 15.0 - 34.0 mm 10/28/2024 5:38 AM EDT [facility] Citrated Rapid Teg W/Heparinase Maximum Amplitude (TEGECMOLIVER) 54.7 53.0 - 69.0 mm 10/28/2024 5:38 AM EDT [facility] Citrated Kaolin w/Heparinase Percent Lysis (TEGECMOLIVER) 0.0 0.0 - 3.2 % 10/28/2024 5:38 AM EDT [facility] Whole Blood (Citrate) 10/28/2024 4:13 AM EDT 10/28/2024 4:28 AM EDT us Kemar Sahni MD LAB BLOOD ORDERABLES Final Result Performing Organization Address City/State/[facility] Co de Phone Number [facility] [address] [id number] * Protime-INR (10/28/2024 4:13 AM EDT) Protime 14.6 12.1 - 15.1 seconds 10/28/2024 4:53 AM EDT [facility] INR 1.1 0.9 - 1.1 10/28/2024 4:53 AM EDT [facility] Comment: RECOMMENDED THERAPEUTIC RANGES USING INR : Stable oral anticoagulant therapy: 2.0 - 3.0 Mechanical prosthetic heart valve: 2.5 - 3.5 Recurrent acute myocardial infarction: 2.5 - 3.5 Plasma 10/28/2024 4:13 AM EDT 10/28/2024 4:41 AM EDT Kemar Sahni MD LAB BLOOD ORDERABLES Final Result [facility] [address] * Magnesium (10/28/2024 4:13 AM EDT) Magnesium 2.2 1.5 - 2.5 mg/dL 10/28/2024 5:15 AM EDT [facility] Plasma 10/28/2024 4:13 AM EDT 10/28/2024 4:41 AM EDT Kemar Sahni MD LAB BLOOD ORDERABLES Final Result Performing Organization Address [facility] Co de Phone Number [facility] [address] * (ABNORMAL) Hepatic Function Panel (10/28/2024 4:13 AM EDT) Total Bilirubin 2.3(H) 0.0 - 1.5 mg/dL 10/28/2024 5:15 AM EDT [facility] Bilirubin, Direct 1.67(H) 0.00 - 0.40 mg/dL 10/28/2024 5:15 AM EDT [facility] AST 44(H) 13 - 39 U/L 10/28/2024 5:15 AM EDT [facility] ALT 101(H) 7 - 52 U/L 10/28/2024 5:15 AM EDT [facility] Alkaline Phosphatase 26(L) 36 - 125 U/L 10/28/2024 5:15 AM EDT [facility] Total Protein 4.5(L) 6.4 - 8.9 g/dL 10/28/2024 5:15 AM EDT [facility] Albumin 3.1(L) 3.5 - 5.7 g/dL 10/28/2024 5:15 AM EDT [facility] Bilirubin, Indirect 0.63 0.00 - 1.10 mg/dL 10/28/2024 5:15 AM EDT [facility] Plasma 10/28/2024 4:13 AM EDT 10/28/2024 4:41 AM EDT Kemar Sahni MD LAB BLOOD ORDERABLES Final Result [facility] [address] [place], [place] [address] * (ABNORMAL) Renal Function Panel w/EGFR (10/28/2024 4:13 AM EDT) Sodium 142 133 - 146 mmol/L 10/28/2024 5:15 AM EDT [facility] Potassium 3.5 3.5 - 5.3 mmol/L 10/28/2024 5:15 AM EDT [facility] Chloride 111(H) 98 - 110 mmol/L 10/28/2024 5:15 AM EDT [facility] CO2 22 21 - 33 mmol/L 10/28/2024 5:15 AM EDT [facility] Anion Gap 9 3 - 16 mmol/L 10/28/2024 5:15 AM EDT [facility] BUN 58(H) 7 - 25 mg/dL 10/28/2024 5:15 AM EDT [facility] Creatinine 2.24(H) 0.60 - 1.30 mg/dL 10/28/2024 5:15 AM EDT [facility] Glucose 103(H) 70 - 100 mg/dL 10/28/2024 5:15 AM EDT [facility] Calcium 9.1 8.6 - 10.3 mg/dL 10/28/2024 5:15 AM EDT [facility] Phosphorus 4.8(H) 2.1 - 4.7 mg/dL 10/28/2024 5:15 AM EDT [facility] Albumin 3.1(L) 3.5 - 5.7 g/dL 10/28/2024 5:15 AM EDT [facility] Osmolality, Calculated 310(H) 278 - 305 mOsm/kg 10/28/2024 5:15 AM EDT [facility] EGFR 37 10/28/2024 [...] Sahni MD LAB BLOOD ORDERABLES Final Result [facility] [id number] [place] [address], [facility] * (ABNORMAL) CBC (10/28/2024 4:13 AM EDT) WBC 4.5 3.8 - 10.8 10E3/uL 10/28/2024 5:09 AM EDT [facility] RBC 2.39(L) 4.20 - 5.80 10E6/uL 10/28/2024 5:09 AM EDT [facility] Hemoglobin 7.3(L) 13.2 - 17.1 g/dL 10/28/2024 5:09 AM EDT [facility] Hematocrit 21.0(L) 38.5 - 50.0 % 10/28/2024 5:09 AM EDT [facility] MCV 87.8 80.0 - 100.0 fL 10/28/2024 5:09 AM EDT [facility] MCH 30.5 27.0 - 33.0 pg 10/28/2024 5:09 AM EDT [facility] [facility] MCHC 34.7 32.0 - 36.0 g/dL 10/28/2024 5:09 AM EDT [facility] RDW 18.7(H) 11.0 - 15.0 % 10/28/2024 5:09 AM EDT [facility] Platelets 38(L) 140 - 400 10E3/uL 10/28/2024 5:09 AM EDT [facility] Comment: CNV Specimen checked for clots. None detected. MPV 7.6 7.5 - 11.5 fL 10/28/2024 5:09 AM EDT [facility] Whole Blood 10/28/2024 4:13 AM EDT 10/28/2024 4:41 AM EDT Kemar Sahni MD LAB BLOOD ORDERABLES Final Result [facility] [address] * (ABNORMAL) POC Glucose Monitoring Device (10/28/2024 4:04 AM EDT) POC Glucose Monitoring Device 103(H) 70 - 100 mg/dL 10/28/2024 4:05 AM EDT [facility] Blood 10/28/2024 4:04 AM EDT 10/28/2024 4:05 AM EDT Semaj Mcnair III, MD POINT OF CARE TEST ORDERABLES Final Result [facility] [address] [facility]. [address] * (ABNORMAL) POC Glucose Monitoring Device (10/28/2024 3:00 AM EDT) POC Glucose Monitoring Device 106(H) 70 - 100 mg/dL 10/28/2024 3:01 AM EDT [facility] Blood 10/28/2024 3:0 0 AM EDT 10/28/2024 3:01 AM EDT us Semaj Mcnair III, MD POINT OF CARE TEST ORDERABLES Final Result [facility] [address] [facility]. [address] * (ABNORMAL) POC Glucose Monitoring Device (10/28/2024 2:32 AM EDT) POC Glucose Monitoring Device 109(H) 70 - 100 mg/dL 10/28/2024 2:33 AM EDT [facility] Blood 10/28/2024 2:32 AM EDT 10/28/2024 2:33 AM EDT Semaj Mcnair III, MD POINT OF CARE TEST ORDERABLES Final Result Performing Organization Address City/[facility]/ZIP Co de Phone Number [facility] [address] [place] [facility]. [address] * (ABNORMAL) POC Glucose Monitoring Device (10/28/2024 2:14 AM EDT) POC Glucose Monitoring Device 115(H) 70 - 100 mg/dL 10/28/2024 2:15 AM EDT [facility] Blood 10/28/2024 2:14 AM EDT 10/28/2024 2:15 AM EDT us Semaj Mcnair III, MD POINT OF CARE TEST ORDERABLES Final Result Performing Organization Address City/[facility]/ZIP Co de Phone Number [facility] [address] [facility]. [address] * (ABNORMAL) POC Glucose Monitoring Device (10/28/2024 2:03 AM EDT) POC Glucose Monitoring Device 101(H) 70 - 100 mg/dL 10/28/2024 2:04 AM EDT [facility] Blood 10/28/2024 2:03 AM EDT 10/28/2024 2:04 AM EDT us Semaj Mcnair III, MD POINT OF CARE TEST ORDERABLES Final Result [facility] [address] * Transfuse RBC Transfusion Rate: Per dept routine (10/28/2024 1:51 AM EDT) John Moreno MD NURSING TREATMENT ORDERABLES - BLOOD ADMIN Final Result Performing Organization Address City/[facility]/ZIP Co de Phone Number EXTERNAL * Transfuse RBC Transfusion Rate: Per dept routine, 1 Units (10/28/2024 1:51 AM EDT) John Moreno MD NURSING TREATMENT ORDERABLES - BLOOD ADMIN Final Result Performing Organization Address City/[facility] Co de Phone Number EXTERNAL * (ABNORMAL) TEG-Bypass/ECMO/Liver HN (Factor function, Platelet/Fibrin Clot Strength w/Clot Breakdown, Heparinase In All Channels) (10/28/2024 12:05 AM EDT) [facility] Citrated Kaolin Reaction Time (TEGECMOLIVER) 7.5 4.6 - 9.1 minutes 10/28/2024 1:22 AM EDT [facility] Citrated Kaolin W/Heparinase Reaction Time (TEGECMOLIVER) 7.7 4.3 - 8.3 minutes 10/28/2024 1:22 AM EDT [facility] Citrated Kaolin Maximum Amplitude (TEGECMOLIVER) 54.4 52.0 - 69.0 mm 10/28/2024 1:22 AM EDT [facility] Citrated Functional Fibrinogen W/Heparinase Maximum Amplitude(TEGEC MOLIVER) 20.4 15.0 - 34.0 mm 10/28/2024 1:22 AM EDT [facility] Citrated Rapid Teg W/Heparinase Maximum Amplitude (TEGECMOLIVER) 51.0(L) 53.0 - 69.0 mm 10/28/2024 1:22 AM EDT [facility] Citrated Kaolin w/Heparinase Percent Lysis (TEGECMOLIVER) 0.0 0.0 - 3.2 % 10/28/2024 1:22 AM EDT [facility] Whole Blood (Citrate) 10/28/2024 12:05 AM EDT 10/28/2024 12:09 AM EDT Kemar Sahni MD LAB BLOOD ORDERABLES Final Result [facility] [address] [facility]. [address] * Magnesium (10/28/2024 12:05 AM EDT) Magnesium 2.2 1.5 - 2.5 mg/dL 10/28/2024 1:59 AM EDT [facility] Plasma 10/28/2024 12:0 5 AM EDT 10/28/2024 12:11 AM EDT Kemar Sahni MD LAB BLOOD ORDERABLES Final Result Performing Organization Address [facility] de Phone Number [facility] [address] * (ABNORMAL) Renal Function Panel w/EGFR (10/28/2024 12:05 AM EDT) Sodium 144 133 - 146 mmol/L 10/28/2024 1:59 AM EDT [facility] Potassium 3.4(L) 3.5 - 5.3 mmol/L 10/28/2024 1:59 AM EDT [facility] Chloride 112(H) 98 - 110 mmol/L 10/28/2024 1:59 AM EDT [facility] CO2 19(L) 21 - 33 mmol/L 10/28/2024 1:59 AM EDT [facility] Anion Gap 13 3 - 16 mmol/L 10/28/2024 1:59 AM EDT [facility] BUN 59(H) 7 - 25 mg/dL 10/28/2024 1:59 AM EDT [facility] Creatinine 2.42(H) 0.60 - 1.30 mg/dL 10/28/2024 1:59 AM EDT [facility] Glucose 118(H) 70 - 100 mg/dL 10/28/2024 1:59 AM EDT [facility] Calcium 9.0 8.6 - 10.3 mg/dL 10/28/2024 1:59 AM EDT [facility] Phosphorus 5.3(H) 2.1 - 4.7 mg/dL 10/28/2024 1:59 AM EDT [facility] Albumin 3.1(L) 3.5 - 5.7 g/dL 10/28/2024 1:59 AM EDT [facility] Osmolality, Calculated 316(H) 278 - 305 mOsm/kg 10/28/2024 1:59 AM EDT [facility] EGFR 34 10/28/2024 1:59 AM EDT [facility] Comment:As of 2021, [...] Sahni MD LAB BLOOD ORDERABLES Final Result [facility] [address] [id number] * (ABNORMAL) Differential (10/28/2024 12:05 AM EDT) Neutrophils Relative 88.6(H) 40.0 - 80.0 % 10/28/2024 12:41 AM EDT [facility] Lymphocytes Relative 2.5(L) 15.0 - 45.0 % 10/28/2024 12:41 AM EDT [facility] Monocytes Relative 6.1 0.0 - 12.0 % 10/28/2024 12:41 AM EDT [facility] Eosinophils Relative 2.4 0.0 - 8.0 % 10/28/2024 12:41 AM EDT [facility] Basophils Relative 0.4 0.0 - 1.0 % 10/28/2024 12:41 AM EDT [facility] nRBC 0 0 - 0 /100 WBC 10/28/2024 12:41 AM EDT [facility] Neutrophils Absolute 4,341 1,520 - 8,640 /uL 10/28/2024 12:41 AM EDT [facility] Lymphocytes Absolute 123(L) 570 - 4,860 /uL 10/28/2024 12:41 AM EDT [facility] Monocytes Absolute 299 0 - 1,296 /uL 10/28/2024 12:41 AM EDT [facility] Eosinophils Absolute 118 0 - 864 /uL 10/28/2024 12:41 AM EDT [facility] Basophils Absolute 20 0 - 108 /uL 10/28/2024 12:41 AM EDT [facility] Whole Blood 10/28/2024 12:0 5 AM EDT 10/28/2024 12:11 AM EDT Kemar Sahni MD LAB BLOOD ORDERABLES Final Result Performing Organization Address City/State/[facility] Co de Phone Number [facility] [address] [place] [address], [facility] * (ABNORMAL) CBC (10/28/2024 12:05 AM EDT) WBC 4.9 3.8 - 10.8 10E3/uL 10/28/2024 12:41 AM EDT [facility] RBC 2.18(L) 4.20 - 5.80 10E6/uL 10/28/2024 12:41 AM EDT [facility] Hemoglobin 6.7(L) 13.2 - 17.1 g/dL 10/28/2024 12:41 AM EDT [facility] Hematocrit 19.2(L) 38.5 - 50.0 % 10/28/2024 12:41 AM EDT [facility] MCV 87.8 80.0 - 100.0 fL 10/28/2024 12:41 AM EDT [facility] MCH 30.6 27.0 - 33.0 pg 10/28/2024 12:41 AM EDT [facility] MCHC 34.8 32.0 - 36.0 g/dL 10/28/2024 12:41 AM EDT [facility] RDW 19.6(H) 11.0 - 15.0 % 10/28/2024 12:41 AM EDT [facility] Platelets 45(L) 140 - 400 10E3/uL 10/28/2024 12:41 AM EDT [facility] Comment: CNV Specimen checked for clots. None detected. MPV 7.8 7.5 - 11.5 fL 10/28/2024 12:41 AM EDT [facility] Whole Blood 10/28/2024 12:0 5 AM EDT 10/28/2024 12:11 AM EDT Kemar Sahni MD LAB BLOOD ORDERABLES Final Result [facility] [address] * (ABNORMAL) POC Glucose Monitoring Device (10/28/2024 12:03 AM EDT) POC Glucose Monitoring Device 122(H) 70 - 100 mg/dL 10/28/2024 12:04 AM EDT [facility] Blood 10/28/2024 12:0 3 AM EDT 10/28/2024 12:04 AM EDT us Semaj Mcnair III, MD POINT OF CARE TEST ORDERABLES Final Result [facility] [address] * (ABNORMAL) POC Glucose Monitoring Device (10/27/2024 10:03 PM EDT) POC Glucose Monitoring Device 127(H) 70 - 100 mg/dL 10/27/2024 10:03 PM EDT [facility] Blood 10/27/2024 10:0 3 PM EDT 10/27/2024 10:03 PM EDT us Semaj Mcnair III, MD POINT OF CARE TEST ORDERABLES Final Result [facility] [address] [facility]. [address] * (ABNORMAL) POC Glucose Monitoring Device (10/27/2024 8:06 PM EDT) POC Glucose Monitoring Device 128(H) 70 - 100 mg/dL 10/27/2024 8:45 PM EDT [facility] Blood 10/27/2024 8:06 PM EDT 10/27/2024 8:45 PM EDT us Semaj Mcnair III, MD POINT OF CARE TEST ORDERABLES Final Result Performing Organization Address City/[facility]/ZIP Co de Phone Number [facility] [address] [facility]. [address] * (ABNORMAL) POC Glucose Monitoring Device (10/27/2024 6:00 PM EDT) POC Glucose Monitoring Device 128(H) 70 - 100 mg/dL 10/27/2024 6:00 PM EDT [facility] Blood 10/27/2024 6:00 PM EDT 10/27/2024 6:00 PM EDT us Semaj Mcnair III, MD POINT OF CARE TEST ORDERABLES Final Result [facility] [address] [facility]. [address] * Lactic Acid, STAT (10/27/2024 5:41 PM EDT) Lactate 0.5 0.5 - 2.2 mmol/L 10/27/2024 6:28 PM EDT [facility] Plasma 10/27/2024 5:41 PM EDT 10/27/2024 5:49 PM EDT Narrative [facility] - 10/27/2024 6:28 PM EDT Redraw John Moreno MD LAB BLOOD ORDERABLES Final R esult Performing Organization Address City/[facility]/ZIP Co de Phone Number [facility] [address] [facility]. [address] * (ABNORMAL) Hepatic Function Panel, STAT (10/27/2024 5:13 PM EDT) Total Bilirubin 1.7(H) 0.0 - 1.5 mg/dL 10/27/2024 5:50 PM EDT [facility] Bilirubin, Direct 1.17(H) 0.00 - 0.40 mg/dL 10/27/2024 5:50 PM EDT [facility] AST 60(H) 13 - 39 U/L 10/27/2024 5:50 PM EDT [facility] ALT 134(H) 7 - 52 U/L 10/27/2024 5:50 PM EDT [facility] Alkaline Phosphatase 27(L) 36 - 125 U/L 10/27/2024 5:50 PM EDT [facility] Total Protein 4.1(L) 6.4 - 8.9 g/dL 10/27/2024 5:50 PM EDT [facility] Albumin 2.9(L) 3.5 - 5.7 g/dL 10/27/2024 5:50 PM EDT [facility] Bilirubin, Indirect 0.53 0.00 - 1.10 mg/dL 10/27/2024 5:50 PM EDT [facility] Plasma 10/27/2024 5:13 PM EDT 10/27/2024 5:23 PM EDT Shay Plata MD LAB BLOOD ORDERABLES Final Result Performing Organization Address [facility]/ZIP Co de Phone Number [facility] [address] * (ABNORMAL) TEG-Bypass/ECMO/Liver HN (Factor function, Platelet/Fibrin Clot Strength w/Clot Breakdown, Heparinase In All Channels) (10/27/2024 5:13 PM EDT) Citrated Kaolin Reaction Time (TEGECMOLIVER) 8.0 4.6 - 9.1 minutes 10/27/2024 6:56 PM EDT [facility] Citrated Kaolin W/Heparinase Reaction Time (TEGECMOLIVER) 6.8 4.3 - 8.3 minutes 10/27/2024 6:56 PM EDT [facility] Citrated Kaolin Maximum Amplitude (TEGECMOLIVER) 55.4 52.0 - 69.0 mm 10/27/2024 6:56 PM EDT [facility] Citrated Functional Fibrinogen W/Heparinase Maximum Amplitude(TEGEC MOLIVER) 22.9 15.0 - 34.0 mm 10/27/2024 6:56 PM EDT [facility] Citrated Rapid Teg W/Heparinase Maximum Amplitude (TEGECMOLIVER) 50.8(L) 53.0 - 69.0 mm 10/27/2024 6:56 PM EDT [facility] Citrated Kaolin w/Heparinase Percent Lysis (TEGECMOLIVER) 0.1 0.0 - 3.2 % 10/27/2024 6:56 PM EDT [facility] Whole Blood (Citrate) 10/27/2024 5:13 PM EDT 10/27/2024 5:20 PM EDT us Kemar Sahni MD LAB BLOOD ORDERABLES Final Result [facility] [address] * (ABNORMAL) Protime-INR (10/27/2024 5:13 PM EDT) Protime 15.2(H) 12.1 - 15.1 seconds 10/27/2024 5:40 PM EDT [facility] INR 1.1 0.9 - 1.1 10/27/2024 5:40 PM EDT [facility] Comment: RECOMMENDED THERAPEUTIC RANGES USING INR : Stable oral anticoagulant therapy: 2.0 - 3.0 Mechanical prosthetic heart valve: 2.5 - 3.5 Recurrent acute myocardial infarction: 2.5 - 3.5 Plasma 10/27/2024 5:13 PM EDT 10/27/2024 5:23 PM EDT Kemar Sahni MD LAB BLOOD ORDERABLES Final Result Performing Organization Address City/[facility]/ZIP Co de Phone Number [facility] [address] [facility]. [address] * Magnesium (10/27/2024 5:13 PM EDT) Magnesium 2.4 1.5 - 2.5 mg/dL 10/27/2024 5:53 PM EDT [facility] Plasma 10/27/2024 5:13 PM EDT 10/27/2024 5:23 PM EDT Kemar Sahni MD LAB BLOOD ORDERABLES Final Result Performing Organization Address [facility] de Phone Number [facility] [address] * (ABNORMAL) Hepatic Function Panel (10/27/2024 5:13 PM EDT) Total Bilirubin 1.7(H) 0.0 - 1.5 mg/dL 10/27/2024 5:53 PM EDT [facility] Bilirubin, Direct 1.10(H) 0.00 - 0.40 mg/dL 10/27/2024 5:53 PM EDT [facility] AST 62(H) 13 - 39 U/L 10/27/2024 5:53 PM EDT [facility] ALT 134(H) 7 - 52 U/L 10/27/2024 5:53 PM EDT [facility] Alkaline Phosphatase 27(L) 36 - 125 U/L 10/27/2024 5:53 PM EDT [facility] Total Protein 4.1(L) 6.4 - 8.9 g/dL 10/27/2024 5:53 PM EDT [facility] Albumin 2.9(L) 3.5 - 5.7 g/dL 10/27/2024 5:53 PM EDT [facility] Bilirubin, Indirect 0.60 0.00 - 1.10 mg/dL 10/27/2024 5:53 PM EDT [facility] Plasma 10/27/2024 5:13 PM EDT 10/27/2024 5:23 PM EDT Kemar Sahni MD LAB BLOOD ORDERABLES Final Result [facility] [address] [place] [address], [facility] * (ABNORMAL) Renal Function Panel w/EGFR (10/27/2024 5:13 PM EDT) Sodium 142 133 - 146 mmol/L 10/27/2024 5:53 PM EDT [facility] Potassium 3.4(L) 3.5 - 5.3 mmol/L 10/27/2024 5:53 PM EDT [facility] Chloride 109 98 - 110 mmol/L 10/27/2024 5:53 PM EDT [facility] CO2 22 21 - 33 mmol/L 10/27/2024 5:53 PM EDT [facility] Anion Gap 11 3 - 16 mmol/L 10/27/2024 5:53 PM EDT [facility] BUN 61(H) 7 - 25 mg/dL 10/27/2024 5:53 PM EDT [facility] Creatinine 2.42(H) 0.60 - 1.30 mg/dL 10/27/2024 5:53 PM EDT [facility] Glucose 125(H) 70 - 100 mg/dL 10/27/2024 5:53 PM EDT [facility] Calcium 8.8 8.6 - 10.3 mg/dL 10/27/2024 5:53 PM EDT [facility] Phosphorus 5.7(H) 2.1 - 4.7 mg/dL 10/27/2024 5:53 PM EDT [facility] Albumin 2.9(L) 3.5 - 5.7 g/dL 10/27/2024 5:53 PM EDT [facility] Osmolality, Calculated 313(H) 278 - 305 mOsm/kg 10/27/2024 5:53 PM EDT [facility] EGFR 34 10/27/2024 5:53 PM EDT [facility] Comment:As of 2021, [...] Sahni MD LAB BLOOD ORDERABLES Final Result [facility] [address] * (ABNORMAL) CBC (10/27/2024 5:13 PM EDT) WBC 4.9 3.8 - 10.8 10E3/uL 10/27/2024 6:14 PM EDT [facility] RBC 2.44(L) 4.20 - 5.80 10E6/uL 10/27/2024 6:14 PM EDT [facility] Hemoglobin 7.4(L) 13.2 - 17.1 g/dL 10/27/2024 6:14 PM EDT [facility] Hematocrit 21.4(L) 38.5 - 50.0 % 10/27/2024 6:14 PM EDT [facility] MCV 87.6 80.0 - 100.0 fL 10/27/2024 6:14 PM EDT [facility] MCH 30.3 27.0 - 33.0 pg 10/27/2024 6:14 PM EDT [facility] MCHC 34.6 32.0 - 36.0 g/dL 10/27/2024 6:14 PM EDT [facility] RDW 19.6(H) 11.0 - 15.0 % 10/27/2024 6:14 PM EDT [facility] Platelets 47(L) 140 - 400 10E3/uL 10/27/2024 6:14 PM EDT [facility] Comment: CNV Specimen checked for clots. None detected. MPV 8.1 7.5 - 11.5 fL 10/27/2024 6:14 PM EDT [facility] Whole Blood 10/27/2024 5:13 PM EDT 10/27/2024 5:23 PM EDT Kemar Sahni MD LAB BLOOD ORDERABLES Final Result Performing Organization Address City/[facility]/ZIP Co de Phone Number [facility] [address] * (ABNORMAL) POC Glucose Monitoring Device (10/27/2024 3:57 PM EDT) [facility] POC Glucose Monitoring Device 131(H) 70 - 100 mg/dL 10/27/2024 3:58 PM EDT [facility] Blood 10/27/2024 3:57 PM EDT 10/27/2024 3:58 PM EDT Semaj Mcnair III, MD POINT OF CARE TEST ORDERABLES Final Result [facility] [address] * (ABNORMAL) CBC, STAT (10/27/2024 2:40 PM EDT) Pathologist [facility] WBC 5.8 3.8 - 10.8 10E3/uL 10/27/2024 2:54 PM EDT [facility] RBC 2.43(L) 4.20 - 5.80 10E6/uL 10/27/2024 2:54 PM EDT [facility] Hemoglobin 7.5(L) 13.2 - 17.1 g/dL 10/27/2024 2:54 PM EDT [facility] Hematocrit 21.5(L) 38.5 - 50.0 % 10/27/2024 2:54 PM EDT [facility] MCV 88.2 80.0 - 100.0 fL 10/27/2024 2:54 PM EDT [facility] MCH 30.7 27.0 - 33.0 pg 10/27/2024 2:54 PM EDT [facility] MCHC 34.8 32.0 - 36.0 g/dL 10/27/2024 2:54 PM EDT [facility] RDW 19.1(H) 11.0 - 15.0 % 10/27/2024 2:54 PM EDT [facility] Platelets 50(L) 140 - 400 10E3/uL 10/27/2024 2:54 PM EDT [facility] MPV 7.5 7.5 - 11.5 fL 10/27/2024 2:54 PM EDT [facility] Whole Blood 10/27/2024 2:40 PM EDT 10/27/2024 2:44 PM EDT us John Moreno MD LAB BLOOD ORDERABLES Final R esult [facility] [address] [place] [address], [facility] * (ABNORMAL) Blood Gas, Arterial, STAT (10/27/2024 2:40 PM EDT) O2 Sat, Arterial 98 10/27/2024 2:46 PM EDT [facility] FIO2 RA 10/27/2024 2:46 PM EDT [facility] pH, Arterial 7.37 7.35 - 7.45 10/27/2024 2:46 PM EDT [facility] pCO2, Arterial 35 35 - 45 mm Hg 10/27/2024 2:46 PM EDT [facility] pO2, Arterial 92 80 - 100 mm Hg 10/27/2024 2:46 PM EDT [facility] HCO3, Arterial 21(L) 22 - 26 mmol/L 10/27/2024 2:46 PM EDT [facility] CO2 Content,Arteri al 21(L) 23 - 27 mmol/L 10/27/2024 2:46 PM EDT [facility] Base Excess, Arterial -4.6(L) -2.0 - 3.0 mmol/L 10/27/2024 2:46 PM EDT [facility] %HBO2, Arterial 95.4 95.0 - 98.0 % 10/27/2024 2:46 PM EDT [facility] Carboxyhemoglo bin, Arterial 1.6 % 10/27/2024 2:46 PM EDT [facility] Comment: CARBOXYHEMOGLOBIN (CO) REFERENCE RANGES: Non-Smokers: <2 % Smokers: <8 % TOXIC: >20 % Methemoglobin, Arterial 1.0 0.0 - 1.5 % 10/27/2024 2:46 PM EDT [facility] Reduced hemoglobin, Arterial 2.1 0.0 - 5.0 % 10/27/2024 2:46 PM EDT [facility] Blood, Arterial 10/27/2024 2 :40 PM EDT 10/27/2024 2:44 PM EDT Narrative [facility] - 10/27/2024 2:46 PM EDT Post extubation John Moreno MD LAB BLOOD ORDERABLES Final R esult Performing Organization Address City/[facility]/ZIP Co de Phone Number [facility] [address] * (ABNORMAL) POC Glucose Monitoring Device (10/27/2024 2:06 PM EDT) [facility] Signature POC Glucose Monitoring Device 134(H) 70 - 100 mg/dL 10/27/2024 2:06 PM EDT [facility] Blood 10/27/2024 2:06 PM EDT 10/27/2024 2:06 PM EDT Semaj Mcnair III, MD POINT OF CARE TEST ORDERABLES Final Result [facility] [address] [id number] * (ABNORMAL) Blood gas, arterial (10/27/2024 12:35 PM EDT) O2 Sat, Arterial 99 10/27/2024 12:46 PM EDT [facility] FIO2 SBT 30% 10/27/2024 12:46 PM EDT [facility] pH, Arterial 7.35 7.35 - 7.45 10/27/2024 12:46 PM EDT [facility] pCO2, Arterial 37 35 - 45 mm Hg 10/27/2024 12:46 PM EDT [facility] pO2, Arterial 182(H) 80 - 100 mm Hg 10/27/2024 12:46 PM EDT [facility] HCO3, Arterial 21(L) 22 - 26 mmol/L 10/27/2024 12:46 PM EDT [facility] CO2 Content,Arteri al 22(L) 23 - 27 mmol/L 10/27/2024 12:46 PM EDT [facility] Base Excess, Arterial -4.8(L) -2.0 - 3.0 mmol/L 10/27/2024 12:46 PM EDT [facility] %HBO2, Arterial 96.3 95.0 - 98.0 % 10/27/2024 12:46 PM EDT [facility] Carboxyhemoglo bin, Arterial 1.7 % 10/27/2024 12:46 PM EDT [facility] Comment: CARBOXYHEMOGLOBIN (CO) REFERENCE RANGES: Non-Smokers: <2 % Smokers: <8 % TOXIC: >20 % Methemoglobin, Arterial 1.4 0.0 - 1.5 % 10/27/2024 12:46 PM EDT [facility] Reduced hemoglobin, Arterial 0.6 0.0 - 5.0 % 10/27/2024 12:46 PM EDT [facility] Blood, Arterial 10/27/2024 1 2:35 PM EDT 10/27/2024 12:42 PM EDT Narrative [facility] - 10/27/2024 12:46 PM EDT Please obtain post SBT us Shay Sifuentes MD LAB BLOOD ORDERABLES Final Resu lt [facility] [address] [place] [address], [facility] * (ABNORMAL) TEG-Bypass/ECMO/Liver HN (Factor function, Platelet/Fibrin Clot Strength w/Clot Breakdown, Heparinase In All Channels) (10/27/2024 12:07 PM EDT) Citrated Kaolin Reaction Time (TEGECMOLIVER) 7.9 4.6 - 9.1 minutes 10/27/2024 1:24 PM EDT [facility] Citrated Kaolin W/Heparinase Reaction Time (TEGECMOLIVER) 8.3 4.3 - 8.3 minutes 10/27/2024 1:24 PM EDT [facility] Citrated Kaolin Maximum Amplitude (TEGECMOLIVER) 52.0 52.0 - 69.0 mm 10/27/2024 1:24 PM EDT [facility] Citrated Functional Fibrinogen W/Heparinase Maximum Amplitude(TEGEC MOLIVER) 20.1 15.0 - 34.0 mm 10/27/2024 1:24 PM EDT [facility] Citrated Rapid Teg W/Heparinase Maximum Amplitude (TEGECMOLIVER) 49.4(L) 53.0 - 69.0 mm 10/27/2024 1:24 PM EDT [facility] Citrated Kaolin w/Heparinase Percent Lysis (TEGECMOLIVER) 0.0 0.0 - 3.2 % 10/27/2024 1:24 PM EDT [facility] Whole Blood (Citrate) 10/27/2024 12:07 PM EDT 10/27/2024 12:09 PM EDT us Kemar Sahni MD LAB BLOOD ORDERABLES Final Result [facility] [address] [place] [address], [facility] * (ABNORMAL) POC Glucose Monitoring Device (10/27/2024 12:01 PM EDT) POC Glucose Monitoring Device 121(H) 70 - 100 mg/dL 10/27/2024 12:02 PM EDT [facility] Blood 10/27/2024 12:0 1 PM EDT 10/27/2024 12:01 PM EDT Semaj Mcnair III, MD POINT OF CARE TEST ORDERABLES Final Result Performing Organization Address [facility] Co de Phone Number [facility] [address] * (ABNORMAL) POC Glucose Monitoring Device (10/27/2024 10:59 AM EDT) POC Glucose Monitoring Device 126(H) 70 - 100 mg/dL 10/27/2024 11:10 AM EDT [facility] Blood 10/27/2024 10:5 9 AM EDT 10/27/2024 11:10 AM EDT Semaj Mcnair III, MD POINT OF CARE TEST ORDERABLES Final Result Performing Organization Address [facility] de Phone Number [facility] [address] * ECG 12 lead (MUSE) (10/27/2024 10:17 AM EDT) 10/27/2024 10:1 7 AM EDT Narrative MUSE - 10/27/2024 2:51 PM EDT Ventricular Rate: 91 BPM Atrial Rate: 91 BPM P-R Interval: 168 ms QRS Duration: 90 ms QT: 274 ms QTc: 337 ms P Elizabeth: 60 degrees R Elizabeth: -30 degrees T Elizabeth: -15 degrees Diagnosis Line: NORMAL SINUS RHYTHM ^ LEFT AXIS DEVIATION, LEFT ANTERIOR HEMIBLOCK ^ NONSPECIFIC T WAVE CHANGE ^ ABNORMAL ECG ^ ^ Confirmed by MD ROLLY, [facility] ([id number]) on 10/27/2024 2:51:52 PM Shay Sifuentes MD ECG ORDERABLES Final Result Performing Organization Address City/[facility] Co de Phone Number MUSE * (ABNORMAL) POC Glucose Monitoring Device (10/27/2024 10:00 AM EDT) POC Glucose Monitoring Device 121(H) 70 - 100 mg/dL 10/27/2024 10:01 AM EDT [facility] Blood 10/27/2024 10:0 0 AM EDT 10/27/2024 10:01 AM EDT Semaj Mcnair III, MD POINT OF CARE TEST ORDERABLES Final Result [facility] [address] [place] [address], [facility] * US Renal Transplant (10/27/2024 9:51 [...] US ORDERABLES Final Result * US Duplex Blg-Vix-Iwonnra Comp (10/27/2024 9:51 AM EDT) Anatomical Region [...] EXAM: US ABDOMEN LIMITED EXAM: US DUPLEX [id number] COMPLETE INDICATION: Post-op liver transplant COMPARISON: None [...] absent.. Pancreas: Obscured by overlying bowel gas. [place] right kidney: 12.5 cm in length. Normal [...] EXAM: US ABDOMEN LIMITED EXAM: US DUPLEX [id number] COMPLETE INDICATION: Post-op liver transplant COMPARISON: None [...] absent.. Pancreas: Obscured by overlying bowel gas. [place] right kidney: 12.5 cm in length. Normal [...] EXAM: US ABDOMEN LIMITED EXAM: US DUPLEX [id number] COMPLETE INDICATION: Post-op liver transplant COMPARISON: None [...] absent.. Pancreas: Obscured by overlying bowel gas. [place] right kidney: 12.5 cm in length. Normal [...] EXAM: US ABDOMEN LIMITED EXAM: US DUPLEX [id number] COMPLETE INDICATION: Post-op liver transplant COMPARISON: None [...] absent.. Pancreas: Obscured by overlying bowel gas. [place] right kidney: 12.5 cm in length. Normal [...] - 100 mg/dL 10/27/2024 9:06 AM EDT [facility] Blood 10/27/2024 9:05 AM EDT 10/27/2024 9:06 AM EDT Semaj Mcnair III, MD POINT OF CARE TEST ORDERABLES Final Result [facility] [address] [place] [id number], [facility] * X-ray Portable Chest (10/27/2024 8:58 [...] - 15.1 seconds 10/27/2024 8:35 AM EDT [facility] INR 1.2(H) 0.9 - 1.1 10/27/2024 8:35 AM EDT [facility] Comment: RECOMMENDED THERAPEUTIC RANGES USING INR : Stable oral anticoagulant therapy: 2.0 - 3.0 Mechanical prosthetic heart valve: 2.5 - 3.5 Recurrent acute myocardial infarction: 2.5 - 3.5 Plasma 10/27/2024 8:16 AM EDT 10/27/2024 8:20 AM EDT us John Moreno MD LAB BLOOD ORDERABLES Final R esult [facility] [address] [place], [place] [address] * Magnesium (10/27/2024 8:00 AM EDT) Magnesium 1.8 1.5 - 2.5 mg/dL 10/27/2024 10:50 AM EDT [facility] Plasma 10/27/2024 8:00 AM EDT 10/27/2024 10:31 AM EDT Kemar Sahni MD LAB BLOOD ORDERABLES Final Result [facility] [address] [place] [address], [facility] * (ABNORMAL) Renal Function Panel w/EGFR (10/27/2024 8:00 AM EDT) Sodium 142 133 - 146 mmol/L 10/27/2024 10:18 AM EDT [facility] Potassium 3.0(L) 3.5 - 5.3 mmol/L 10/27/2024 10:18 AM EDT [facility] Chloride 109 98 - 110 mmol/L 10/27/2024 10:18 AM EDT [facility] CO2 21 21 - 33 mmol/L 10/27/2024 10:18 AM EDT [facility] Anion Gap 12 3 - 16 mmol/L 10/27/2024 10:18 AM EDT [facility] BUN 59(H) 7 - 25 mg/dL 10/27/2024 10:18 AM EDT [facility] Creatinine 2.54(H) 0.60 - 1.30 mg/dL 10/27/2024 10:18 AM EDT [facility] Glucose 111(H) 70 - 100 mg/dL 10/27/2024 10:18 AM EDT [facility] Calcium 9.1 8.6 - 10.3 mg/dL 10/27/2024 10:18 AM EDT [facility] Phosphorus 5.5(H) 2.1 - 4.7 mg/dL 10/27/2024 10:18 AM EDT [facility] Albumin 3.0(L) 3.5 - 5.7 g/dL 10/27/2024 10:18 AM EDT [facility] Osmolality, Calculated 311(H) 278 - 305 mOsm/kg 10/27/2024 10:18 AM EDT [facility] EGFR 32 10/27/2024 10:18 AM EDT [facility] Comment:As of 2021, [...] ORDERABLES Final Result Performing Organization Address City/State/[facility] Co de Phone Number [facility] [address] * (ABNORMAL) Hepatic Function Panel, STAT (10/27/2024 8:00 AM EDT) Total Bilirubin 1.3 0.0 - 1.5 mg/dL 10/27/2024 8:51 AM EDT [facility] Bilirubin, Direct 0.93(H) 0.00 - 0.40 mg/dL 10/27/2024 8:51 AM EDT [facility] AST 88(H) 13 - 39 U/L 10/27/2024 8:51 AM EDT [facility] ALT 149(H) 7 - 52 U/L 10/27/2024 8:51 AM EDT [facility] Alkaline Phosphatase 26(L) 36 - 125 U/L 10/27/2024 8:51 AM EDT [facility] Total Protein 4.0(L) 6.4 - 8.9 g/dL 10/27/2024 8:51 AM EDT [facility] Albumin 3.0(L) 3.5 - 5.7 g/dL 10/27/2024 8:51 AM EDT [facility] Bilirubin, Indirect 0.37 0.00 - 1.10 mg/dL 10/27/2024 8:51 AM EDT [facility] Plasma 10/27/2024 8:00 AM EDT 10/27/2024 8:20 AM EDT Semaj Mcnair III, MD LAB BLOOD ORDERABLE S Final Result Performing Organization Address [facility] Co de Phone Number [facility] [address] * (ABNORMAL) Lactic Acid, STAT (10/27/2024 8:00 AM EDT) Lactate 0.4(L) 0.5 - 2.2 mmol/L 10/27/2024 8:43 AM EDT [facility] Plasma 10/27/2024 8:00 AM EDT 10/27/2024 8:20 AM EDT Semaj Mcnair III, MD LAB BLOOD ORDERABLE S Final Result Performing Organization Address [facility] Co de Phone Number [facility] [address] * (ABNORMAL) Blood Gas, Arterial, STAT (10/27/2024 8:00 AM EDT) O2 Sat, Arterial 100 10/27/2024 8:23 AM EDT [facility] pH, Arterial 7.36 7.35 - 7.45 10/27/2024 8:23 AM EDT [facility] pCO2, Arterial 37 35 - 45 mm Hg 10/27/2024 8:23 AM EDT [facility] pO2, Arterial 245(H) 80 - 100 mm Hg 10/27/2024 8:23 AM EDT [facility] HCO3, Arterial 22 22 - 26 mmol/L 10/27/2024 8:23 AM EDT [facility] CO2 Content,Arteri al 22(L) 23 - 27 mmol/L 10/27/2024 8:23 AM EDT [facility] Base Excess, Arterial -4.2(L) -2.0 - 3.0 mmol/L 10/27/2024 8:23 AM EDT [facility] %HBO2, Arterial 96.5 95.0 - 98.0 % 10/27/2024 8:23 AM EDT [facility] Carboxyhemoglo bin, Arterial 2.2 % 10/27/2024 8:23 AM EDT [facility] Comment: CARBOXYHEMOGLOBIN (CO) REFERENCE RANGES: Non-Smokers: <2 % Smokers: <8 % TOXIC: >20 % Methemoglobin, Arterial 1.2 0.0 - 1.5 % 10/27/2024 8:23 AM EDT [facility] Reduced hemoglobin, Arterial 0.0 0.0 - 5.0 % 10/27/2024 8:23 AM EDT [facility] Blood, Arterial 10/27/2024 8 :00 AM EDT 10/27/2024 8:19 AM EDT Narrative [facility] - 10/27/2024 8:23 AM EDT Specimen is beyond 15 minutes from time of collection. Results may be compromised. Review results critically. us Kemar Sahni MD LAB BLOOD ORDERABLES Final Result [facility] [address] [id number], [facility] * (ABNORMAL) TEG-Bypass/ECMO/Liver HN (Factor function, Platelet/Fibrin Clot Strength w/Clot Breakdown, Heparinase In All Channels) (10/27/2024 8:00 AM EDT) Citrated Kaolin Reaction Time (TEGECMOLIVER) 7.8 4.6 - 9.1 minutes 10/27/2024 9:39 AM EDT [facility] Citrated Kaolin W/Heparinase Reaction Time (TEGECMOLIVER) 8.0 4.3 - 8.3 minutes 10/27/2024 9:39 AM EDT [facility] Citrated Kaolin Maximum Amplitude (TEGECMOLIVER) 52.7 52.0 - 69.0 mm 10/27/2024 9:39 AM EDT [facility] Citrated Functional Fibrinogen W/Heparinase Maximum Amplitude(TEGEC MOLIVER) 19.0 15.0 - 34.0 mm 10/27/2024 9:39 AM EDT [facility] Citrated Rapid Teg W/Heparinase Maximum Amplitude (TEGECMOLIVER) 49.5(L) 53.0 - 69.0 mm 10/27/2024 9:39 AM EDT [facility] Citrated Kaolin w/Heparinase Percent Lysis (TEGECMOLIVER) 0.0 0.0 - 3.2 % 10/27/2024 9:39 AM EDT [facility] Whole Blood (Citrate) 10/27/2024 8:00 AM EDT 10/27/2024 8:19 AM EDT Kemar Sahni MD LAB BLOOD ORDERABLES Final Result Performing Organization Address [facility] Co de Phone Number [facility] [address] [place] [address] * (ABNORMAL) Katie-Watkins virus VCA IgG Antibody (10/27/2024 8:00 AM EDT) EBV VCA IgG Positive( A) Negative 10/27/2024 11:30 AM EDT [facility] Comment:Presence of detectab le VCA IgG antibodies. 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 EBV IGG NUM 314.00(H) 0.00 - 17.99 U/mL 10/27/2024 11:30 AM EDT [facility] Serum 10/27/2024 8:00 AM EDT 10/27/2024 8:20 AM EDT eKmar Sahni MD LAB BLOOD ORDERABLES Final Result Performing Organization Address City/[facility]/ZIP Co de Phone Number [facility] [address] [place] [address] * Hemoglobin A1c (10/27/2024 8:00 AM EDT) [...] BLOOD ORDERABLES Final Result Performing Organization Address City/[facility] Co de Phone Number [facility] [address] [facility]. [address] * (ABNORMAL) POC Glucose Monitoring Device (10/27/2024 7:59 AM EDT) POC Glucose Monitoring Device 113(H) 70 - 100 mg/dL 10/27/2024 7:59 AM EDT [facility] Blood 10/27/2024 7:59 AM EDT 10/27/2024 7:59 AM EDT Semaj Mcnair III, MD POINT OF CARE TEST ORDERABLES Final Result Performing Organization Address City/[facility] Co de Phone Number [facility] [address] [facility]. [address] * X-ray Abdomen AP view (10/27/2024 [...] to Michela Szymanski, RN via telephone by gA Garcia MD [...] Units (10/27/2024 6:16 AM EDT) Product Code J1552H74 HCLL Unit Number [id number] HCLL Dispense Status Presumed Transfused_PT HCLL Blood Expiration Date [id number] HCLL Coding System LCJQ829 HCLL Product Code A3604N40 HCLL Unit Number [id number] HCLL Dispense Status Presumed Transfused_PT HCLL Blood Expiration Date 364542870747 HCLL Coding System [id number] HCLL Blood Bank Product John Pina MD BLOOD BANK PRODUCT ORDERABLES F inal Result Performing Organization Address City/[facility]/ZIP Co de Phone Number HCLL * Prepare Platelets, leukoreduced, 1 Units (10/27/2024 6:16 AM EDT) Product Code Z2368W35 HCLL Unit Number [id number] HCLL Dispense Status Presumed Transfused_PT HCLL Blood Expiration Date 744327634535 HCLL Coding System [id number] HCLL Blood Bank Product Eber Quinones MD BLOOD BANK PRODUCT ORDER PAL Final Result Performing Organization Address [facility] Co de Phone Number HCLL * Prepare Cryoprecipitate, 1 Units (10/27/2024 6:16 AM EDT) Product Code P3704I33 HCLL Unit Number [id number] HCLL Dispense Status Presumed Transfused_PT HCLL Blood Expiration Date HCLL Coding System GZNN880 HCLL Product Code B6373R23 HCLL Unit Number [id number] HCLL Dispense Status Presumed Transfused_PT HCLL Blood Expiration Date 713100953431 HCLL Coding System FJVQ493 HCLL Blood Bank Product Eber Quinones MD BLOOD BANK PRODUCT ORDER PAL Final Result Performing Organization Address City/[facility]/ZIP Co de Phone Number HCLL * Prepare Fresh Frozen Plasma, 10 Units (10/27/2024 6:16 AM EDT) Product Code Y7403F59 HCLL Unit Number [id number] HCLL Dispense Status Presumed Transfused_PT HCLL Blood Expiration Date HCLL Coding System HGWN255 HCLL Product Code L0445K12 HCLL Unit Number [id number] HCLL Dispense Status Presumed Transfused_PT HCLL Blood Expiration Date HCLL Coding System QWMW299 HCLL Product Code S0887C02 HCLL Unit Number [id number] HCLL Dispense Status Presumed Transfused_PT HCLL Blood Expiration Date HCLL Coding System YBJB003 HCLL Product Code N4754W17 HCLL Unit Number [id number] HCLL Dispense Status Presumed Transfused_PT HCLL Blood Expiration Date HCLL Coding System HQJG944 HCLL Product Code L1650S32 HCLL Unit Number [id number] HCLL Dispense Status Released from Crossmatch_RE HCLL Blood Expiration Date 432227496208 HCLL Coding System FUPA118 HCLL Product Code T8755K99 HCLL Unit Number [id number] HCLL Dispense Status Released from Crossmatch_RE HCLL Blood Expiration Date HCLL Coding System TGUK828 HCLL Product Code G2164Z06 HCLL Unit Number [id number] HCLL Dispense Status Presumed Transfused_PT HCLL Blood Expiration Date HCLL Coding System YSIJ869 HCLL Product Code R3146Y78 HCLL Unit Number [id number] HCLL Dispense Status Presumed Transfused_PT HCLL Blood Expiration Date 133981293507 HCLL Coding System ZJYB017 HCLL Product Code C5133C79 HCLL Unit Number [id number] HCLL Dispense Status Presumed Transfused_PT HCLL Blood Expiration Date HCLL Coding System FZTZ161 HCLL Product Code U6363U94 HCLL Unit Number [id number] HCLL Dispense Status Presumed Transfused_PT HCLL Blood Expiration Date HCLL Coding System QSSA647 HCLL Blood Bank Product Leandra Og MD BLOOD BANK PRODUCT ORD ERABLES Final Result HCLL * Prepare Platelets, leukoreduced, 1 Units (10/27/2024 6:16 AM EDT) Product Code L5577B71 HCLL Unit Number [id number] HCLL Dispense Status Presumed Transfused_PT HCLL Blood Expiration Date 906444315821 HCLL Coding System ROLW503 HCLL Blood Bank Product Ben Blake MD BLOOD BANK PRODUCT ORDERABLES Final Result Performing Organization Address City/[facility] Co de Phone Number HCLL * Prepare Fresh Frozen Plasma (10/27/2024 6:15 AM EDT) Product Code F6360N88 HCLL Unit Number [id number] HCLL Dispense Status Presumed Transfused_PT HCLL Blood Expiration Date HCLL Coding System KHKR771 HCLL Product Code H0579H32 HCLL Unit Number [id number] HCLL Dispense Status Released from Crossmatch_RE HCLL Blood Expiration Date HCLL Coding System GKGQ651 HCLL Product Code J7333L27 HCLL Unit Number [id number] HCLL Dispense Status Presumed Transfused_PT HCLL Blood Expiration Date HCLL Coding System HDRK480 HCLL Product Code A2314L64 HCLL Unit Number [id number] HCLL Dispense Status Presumed Transfused_PT HCLL Blood Expiration Date HCLL Coding System WDRR784 HCLL Product Code P9590S39 HCLL Unit Number [id number] HCLL Dispense Status Released from Crossmatch_RE HCLL Blood Expiration Date HCLL Coding System YNUP351 HCLL us Attending Provider Unknown BLOOD BANK PRODUCT OR DERABLES Final Result Performing Organization Address City/[facility] Co de Phone Number HCLL * Prepare RBC, leukoreduced (10/27/2024 6:15 AM EDT) Product Code S8860O54 HCLL Unit Number [id number] HCLL Dispense Status Presumed Transfused_PT HCLL Blood Expiration Date 667731737068 HCLL Coding System FBAG531 HCLL Product Code T5401G90 HCLL Unit Number [id number] HCLL Dispense Status Released from Crossmatch_RE HCLL Blood Expiration Date HCLL Coding System OPMF742 HCLL Product Code B8598U43 HCLL Unit Number [id number] HCLL Dispense Status Released from Crossmatch_RE HCLL Blood Expiration Date 876925784170 HCLL Coding System MDIY894 HCLL Product Code L1448H89 HCLL Unit Number [id number] HCLL Dispense Status Released from Crossmatch_RE HCLL Blood Expiration Date 109779066755 HCLL Coding System GKTH904 HCLL Product Code C7016F28 HCLL Unit Number [id number] HCLL Dispense Status Released from Crossmatch_RE HCLL Blood Expiration Date 646597086263 HCLL Coding System THNK606 HCLL us Attending Provider Unknown BLOOD BANK PRODUCT OR DERABLES Final Result Performing Organization Address City/[facility] Co de Phone Number HCLL * Prepare RBC, leukoreduced, 10 Units (10/27/2024 6:15 AM EDT) Product Code W9248L28 HCLL Unit Number [id number] HCLL Dispense Status Presumed Transfused_PT HCLL Blood Expiration Date 447623487736 HCLL Coding System NJVD102 HCLL Product Code M0543E76 HCLL Unit Number [id number] HCLL Dispense Status Presumed Transfused_PT HCLL Blood Expiration Date 221520279558 HCLL Coding System GAIR824 HCLL Product Code U5628W23 HCLL Unit Number [id number] HCLL Dispense Status Presumed Transfused_PT HCLL Blood Expiration Date 124633986972 HCLL Coding System ZTFG135 HCLL Product Code Q5473X50 HCLL Unit Number [id number] HCLL Dispense Status Presumed Transfused_PT HCLL Blood Expiration Date 628679816491 HCLL Coding System EINQ377 HCLL Product Code J3338I18 HCLL Unit Number [id number] HCLL Dispense Status Presumed Transfused_PT HCLL Blood Expiration Date 781231515668 HCLL Coding System HWRF385 HCLL Product Code Z2154G45 HCLL Unit Number [id number] HCLL Dispense Status Presumed Transfused_PT HCLL Blood Expiration Date 471965985244 HCLL Coding System RBBX990 HCLL Product Code O3569S95 HCLL Unit Number [id number] HCLL Dispense Status Presumed Transfused_PT HCLL Blood Expiration Date 972454891261 HCLL Coding System MRIH951 HCLL Product Code X8121K53 HCLL Unit Number [id number] HCLL Dispense Status Presumed Transfused_PT HCLL Blood Expiration Date 518468774905 HCLL Coding System GJKO478 HCLL Product Code A0811W13 HCLL Unit Number [id number] HCLL Dispense Status Presumed Transfused_PT HCLL Blood Expiration Date 384313734534 HCLL Coding System XUPO436 HCLL Product Code K0161X17 HCLL Unit Number [id number] HCLL Dispense Status Presumed Transfused_PT HCLL Blood Expiration Date 785301551056 HCLL Coding System ZAUR185 HCLL Blood Bank Product us Leandra Og MD BLOOD BANK PRODUCT ORD ERABLES Final Result HCLL * Transfuse Platelets (10/27/2024 6:09 AM EDT) us Ben Blake MD NURSING TREATMENT ORDERABLES - BLOOD ADMIN Final Result * (ABNORMAL) Arterial Blood Gas Panel (10/27/2024 6:09 AM EDT) O2Sat (ABGP) 100 10/27/2024 6:17 AM EDT [facility] pH (ABGP) 7.30(L) 7.35 - 7.45 10/27/2024 6:17 AM EDT [facility] PCO2 (ABGP) 41 35 - 45 mm Hg 10/27/2024 6:17 AM EDT [facility] PO2 (ABGP) 192(H) 80 - 100 mm Hg 10/27/2024 6:17 AM T [facility] HCO3 (ABGP) 21(L) 22 - 26 mmol/L 10/27/2024 6:17 AM T [facility] CO2 Content (ABGP) 22(L) 23 - 27 mmol/L 10/27/2024 6:17 AM T [facility] Base Excess (ABGP) -5.7(L) -2.0 - 3.0 mmol/L 10/27/2024 6:17 AM EDT [facility] Sodium (ABGP) 138 136 - 146 mEq/L 10/27/2024 6:17 AM T [facility] Potassium (ABGP) 3.3(L) 3.5 - 5.0 mEq/L 10/27/2024 6:17 AM [facility] Comment:In the event of in-v itro hemolysis, potassium results may be falsely elevated. Always interpret lab results in conjunction with clinical findings. If hemolysis is suspected, a serum sample may be collected for repeat assessment of potassium. Calcium, Free (ABGP) 5.28 4.50 - 5.30 mg/dL 10/27/2024 6:17 AM T [facility] Glucose (ABGP) 112(H) 70 - 100 mg/dL 10/27/2024 6:17 AM [facility] Comment:There is interferenc e with whole blood glucose results on this method when Hematocrit is <25% or >60%. HCT (ABGP) 20.0(L) 40.0 - 52.0 % 10/27/2024 6:17 AM T [facility] HGB (ABGP) 6.5(L) 14.0 - 18.0 g/dL 10/27/2024 6:17 AM [facility] [facility] %HBO2 (ABGP) 96.8 95.0 - 98.0 % 10/27/2024 6:17 AM EDT [facility] Carboxyhgb (ABGP) 2.1 % 025 6:17 AM EDT [facility] Comment: CARBOXYHEMOGLOBIN (CO) REFERENCE RANGES: Non-Smokers: <2 % Smokers: <8 % TOXIC: >20 % Methemoglobin (ABGP) 1.0 0.0 - 1.5 % 10/27/2024 6:17 AM EDT [facility] Reduced Hemoglobin (ABGP) 0.2 0.0 - 5.0 % 10/27/2024 6:17 AM EDT [facility] Lactic Acid (ABGP) 0.4(L) 0.5 - 1.6 mmol/L 10/27/2024 6:17 AM EDT [facility] Blood, Arterial 10/27/2024 6 :09 AM EDT 10/27/2024 6:14 AM EDT Ben Blake MD LAB BLOOD ORDERABLES Final Re sult [facility] [address] [place] [address], [facility] * Transfuse Fresh Frozen Plasma (10/27/2024 [...] Monitoring Device (10/27/2024 4:46 AM EDT) Pathologist [facility] POC Glucose Monitoring Device 124(H) 70 - 100 mg/dL 10/27/2024 4:47 AM EDT [facility] Blood 10/27/2024 4:46 AM EDT 10/27/2024 4:47 AM EDT Semaj Mcnair III, MD POINT OF CARE TEST ORDERABLES Final Result [facility] [address] [id number], [facility] * Transfuse Platelets (10/27/2024 4:24 AM EDT) Ben Blake MD NURSING TREATMENT ORDERABLES - BLOOD ADMIN Final Result * Transfuse Fresh Frozen Plasma (10/27/2024 4:07 AM EDT) Ben Blake MD NURSING TREATMENT ORDERABLES - BLOOD ADMIN Final Result * Transfuse RBC (10/27/2024 3:52 AM EDT) Result [facility] Ben Blake MD NURSING TREATMENT ORDERABLES - BLOOD ADMIN Final Result * (ABNORMAL) Arterial Blood Gas Panel (10/27/2024 3:07 AM EDT) O2Sat (ABGP) 100 10/27/2024 3:21 AM EDT [facility] pH (ABGP) 7.32(L) 7.35 - 7.45 10/27/2024 3:21 AM EDT [facility] PCO2 (ABGP) 38 35 - 45 mm Hg 10/27/2024 3:21 AM EDT [facility] PO2 (ABGP) 176(H) 80 - 100 mm Hg 10/27/2024 3:21 AM EDT [facility] HCO3 (ABGP) 20(L) 22 - 26 mmol/L 10/27/2024 3:21 AM EDT [facility] CO2 Content (ABGP) 21(L) 23 - 27 mmol/L 10/27/2024 3:21 AM EDT [facility] Base Excess (ABGP) -6.0(L) -2.0 - 3.0 mmol/L 10/27/2024 3:21 AM EDT [facility] Sodium (ABGP) 138 136 - 146 mEq/L 10/27/2024 3:21 AM EDT [facility] Potassium (ABGP) 3.0(L) 3.5 - 5.0 mEq/L 10/27/2024 3:21 AM [facility] Comment:In the event of in-v itro hemolysis, potassium results may be falsely elevated. Always interpret lab results in conjunction with clinical findings. If hemolysis is suspected, a serum sample may be collected for repeat assessment of potassium. Calcium, Free (ABGP) 5.28 4.50 - 5.30 mg/dL 10/27/2024 3:21 AM EDT [facility] Glucose (ABGP) 108(H) 70 - 100 mg/dL 10/27/2024 3:21 AM T [facility] Comment:There is interferenc e with whole blood glucose results on this method when Hematocrit is <25% or >60%. HCT (ABGP) 22.0(L) 40.0 - 52.0 % 10/27/2024 3:21 AM EDT [facility] HGB (ABGP) 7.3(L) 14.0 - 18.0 g/dL 10/27/2024 3:21 AM T [facility] %HBO2 (ABGP) 97.3 95.0 - 98.0 % 10/27/2024 3:21 AM T [facility] Carboxyhgb (ABGP) 1.9 % 025 3:21 AM T [facility] Comment: CARBOXYHEMOGLOBIN (CO) REFERENCE RANGES: Non-Smokers: <2 % Smokers: <8 % TOXIC: >20 % Methemoglobin (ABGP) 0.8 0.0 - 1.5 % 10/27/2024 3:21 AM EDT [facility] Reduced Hemoglobin (ABGP) 0.0 0.0 - 5.0 % 10/27/2024 3:21 AM T [facility] Lactic Acid (ABGP) 0.3(L) 0.5 - 1.6 mmol/L 10/27/2024 3:21 AM [facility] Blood, Arterial 10/27/2024 3 :07 AM EDT 10/27/2024 3:14 AM EDT us Ben Blake MD LAB BLOOD ORDERABLES Final Re sult [facility] [address] [place] [address], [facility] * Surgical Pathology Exam (10/27/2024 2:38 AM EDT) Tissue LEFT KIDNEY STRUCTURE / Unknown 10/27/2024 2:38 AM EDT Narrative [facility] - 10/27/2024 12:00 AM EDT CASE: [id number] PATIENT: BLAIR GILBERT Clinical History: Transplant kidney with bile duct reconstruction Pre-Operative Diagnosis: Acute kidney injury superimposed on CKD Post-Operative Diagnosis: None Given Specimen(s) Submitted: A. baseline renal biopsy ; B. right lobe liver biopsy; C. left lobe liver biopsy CPT Code(s): 11251 X 1; 29815 X 2; 86193 X 4 Additional Information: FINAL DIAGNOSIS: A. [...] submitted between blue biopsy sponges in cassette [facility]-[id number] B1-B2. (NAA Mckeon/nereida) C. Received in formalin, labeled with the patient's name Blair Gilbert and left lobe liver biopsy are two green-georges tissue cores measuring 1.2 and 1.4 cm in length, each with a diameter of 0.1 cm, which are entirely submitted between blue biopsy sponges in cassette [facility]-[id number] C1-C2. (NAA Mckeon/ns) Microscopic Description: I, the attending pathologist, have personally reviewed all prosector/resident work and pathology slides to determine final diagnosis. Control Materials Reacted Appropriately. Final Diagnosis performed by CLARE FALL MD Pathologist Electronically signed 10/31/2024 01:07:09 PM The Pathologist signing this report is located at [facility], [address] [place] [address], [id number], , CLIA ID: [id number] ADDENDUM: A. Kidney, allograft, baseline, wedge biopsy: [...] Pathologist signing this report is located at [facility], [address] [place] [address], [id number], , CLIA ID: [id number] us Kemar Sahni MD PATHOLOGY/CYTOLOGY ORDERABL ES Edited Result - Final [facility] * Anaerobic culture (10/27/2024 2:15 AM EDT) Culture Result No Anaerobes Isolated in 5 Days [facility] Fluid SPECIMEN FROM KIDNEY / Unknown 10/27/2024 2:15 AM EDT 10/27/2024 4:24 AM EDT [facility] - 10/31/2024 11:43 AM EDT 1) perfusate us Semaj Mcnair III, MD MICROBIOLOGY - GENE RAL ORDERABLES Final Result [facility] [address] [facility]. [address] * Fungus culture (10/27/2024 2:15 AM EDT) Culture Result No Fungus Isolated At 4 Weeks [facility] Fluid SPECIMEN FROM KIDNEY / Unknown 10/27/2024 2:15 AM EDT 10/27/2024 4:24 AM EDT Narrative [facility] - 11/24/2024 7:52 AM EDT 1) perfusate us Semaj Mcnair III, MD MICROBIOLOGY - GENE RAL ORDERABLES Final Result Performing Organization Address [facility] Co de Phone Number [facility] [address] [facility]. [address] * Routine Culture plus Stain (10/27/2024 2:15 AM EDT) Gram Stain Result No Polymorphonuclear Leukocytes Seen [facility] Gram Stain Result No Organisms Seen; [facility] Culture Result No Growth After 3 Days [facility] Fluid SPECIMEN FROM KIDNEY / Unknown 10/27/2024 2:15 AM EDT 10/27/2024 4:24 AM EDT [facility] - 10/30/2024 9:26 AM EDT 1) perfusate us Semaj Mcnair III, MD MICROBIOLOGY - GENE RAL ORDERABLES Final Result [facility] [address] [facility]. [address] * Transfuse Platelets Transfusion Rate: Per [...] a Baseline TEG) (10/27/2024 1:51 AM EDT) [facility] Citrated Kaolin Reaction Time (TEGHEPARINASE) 10.6(H) 4.6 - 9.1 minutes 10/27/2024 2:44 AM EDT [facility] Citrated Rapid Teg Maximum Amplitude (TEGHEPARINASE) 42.3(L) 52.0 - 70.0 mm 10/27/2024 2:44 AM EDT [facility] Citrated Functional Fibrinogen Maximum Amplitude (TEGHEPARINASE) 15.0 15.0 - 32.0 mm 10/27/2024 2:44 AM EDT [facility] Citrated Kaolin W/Heparinase Reaction Time (TEGHEPARINASE) 10.5(H) 4.3 - 8.3 minutes 10/27/2024 2:44 AM EDT [facility] Citrated Kaolin K-Time (TEGHEPARINASE) 2.9(A) 0.8 - 2.1 minutes 10/27/2024 2:44 AM EDT [facility] Citrated Kaolin Angle (TEGHEPARINASE) 60.4(A) 63.0 - 78.0 degrees 10/27/2024 2:44 AM EDT [facility] Citrated Kaolin Maximum Amplitude (TEGHEPARINASE) 42.9(L) 52.0 - 69.0 mm 10/27/2024 2:44 AM EDT [facility] Citrated Functional Fibrinogen- Fibrinogen Level (TEGHEPARINASE) 273.7(L) 278.0 - 581.0 mg/dL 10/27/2024 2:44 AM EDT [facility] Whole Blood (Citrate) 10/27/2024 1:51 AM EDT 10/27/2024 2:03 AM EDT us John Pina MD LAB BLOOD ORDERABLES Final Resu lt Performing Organization Address [facility] de Phone Number [facility] [address] * (ABNORMAL) POC Glucose Monitoring Device (10/27/2024 1:50 AM EDT) POC Glucose Monitoring Device 121(H) 70 - 100 mg/dL 10/27/2024 1:51 AM EDT [facility] Blood 10/27/2024 1:50 AM EDT 10/27/2024 1:51 AM EDT us Semaj Mcnair III, MD POINT OF CARE TEST ORDERABLES Final Result Performing Organization Address [facility] de Phone Number [facility] [address] [facility]. [address] * Transfuse Cryoprecipitate Transfusion Rate: Per dept routine (10/27/2024 1:25 AM EDT) us John Pina MD NURSING TREATMENT ORDERABLES - BLOOD ADMIN Final Result Performing Organization Address [facility] de Phone Number EXTERNAL * Transfuse Cryoprecipitate Transfusion Rate: Per dept routine, 1 Units (10/27/2024 1:25 AM EDT) us John Pina MD NURSING TREATMENT ORDERABLES - BLOOD ADMIN Final Result Performing Organization Address [facility] de Phone Number EXTERNAL * (ABNORMAL) POC Glucose Monitoring Device (10/27/2024 1:21 AM EDT) POC Glucose Monitoring Device 123(H) 70 - 100 mg/dL 10/27/2024 1:22 AM EDT [facility] Blood 10/27/2024 1:21 AM EDT 10/27/2024 1:21 AM EDT Semaj Mcnair III, MD POINT OF CARE TEST ORDERABLES Final Result Performing Organization Address [facility] de Phone Number [facility] [address] * Transfuse Fresh Frozen Plasma Transfusion Rate: Per dept routine (10/27/2024 1:03 AM EDT) us John Pina MD NURSING TREATMENT ORDERABLES - BLOOD ADMIN Final Result Performing Organization Address [facility] de Phone Number EXTERNAL * Transfuse Fresh Frozen Plasma Transfusion Rate: Per dept routine, 1 Units (10/27/2024 1:03 AM EDT) us John Pina MD NURSING TREATMENT ORDERABLES - BLOOD ADMIN Final Result Performing Organization Address [facility] de Phone Number EXTERNAL * Calcium Free, Serum (10/27/2024 12:13 AM EDT) [facility] Signature Free Calcium, Ser 5.20 4.40 - 5.40 mg/dL 10/27/2024 12:37 AM EDT [facility] Comment:Free calcium levels vary inversely with pH by approximately 5% for each 0.1 unit of pH change. Assay results have been normalized to pH = 7.40. Serum 10/27/2024 12:1 3 AM EDT 10/27/2024 12:29 AM EDT Narrative [facility] - 10/27/2024 12:37 AM EDT This test has been developed and its performance characteristics determined by [facility] which is certified under the Clinical [...] ORDERABLES Final Resu lt Performing Organization Address [facility] de Phone Number [facility] [address] * (ABNORMAL) Blood Gas, Arterial, STAT (10/27/2024 12:13 AM EDT) O2 Sat, Arterial 100 10/27/2024 12:23 AM EDT [facility] FIO2 30 10/27/2024 12:23 AM EDT [facility] pH, Arterial 7.32(L) 7.35 - 7.45 10/27/2024 12:23 AM EDT [facility] pCO2, Arterial 37 35 - 45 mm Hg 10/27/2024 12:23 AM EDT [facility] pO2, Arterial 137(H) 80 - 100 mm Hg 10/27/2024 12:23 AM EDT [facility] HCO3, Arterial 20(L) 22 - 26 mmol/L 10/27/2024 12:23 AM EDT [facility] CO2 Content,Arteri al 20(L) 23 - 27 mmol/L 10/27/2024 12:23 AM EDT [facility] Base Excess, Arterial -6.4(L) -2.0 - 3.0 mmol/L 10/27/2024 12:23 AM EDT [facility] %HBO2, Arterial 96.2 95.0 - 98.0 % 10/27/2024 12:23 AM EDT [facility] Carboxyhemoglo bin, Arterial 1.9 % 10/27/2024 12:23 AM EDT [facility] Comment: CARBOXYHEMOGLOBIN (CO) REFERENCE RANGES: Non-Smokers: <2 % Smokers: <8 % TOXIC: >20 % Methemoglobin, Arterial 1.5 0.0 - 1.5 % 10/27/2024 12:23 AM EDT [facility] Reduced hemoglobin, Arterial 0.4 0.0 - 5.0 % 10/27/2024 12:23 AM EDT [facility] Blood, Arterial 10/27/2024 1 2:13 AM EDT 10/27/2024 12:18 AM EDT us John Pina MD LAB BLOOD ORDERABLES Final Resu lt [facility] [address] [place] [address], [facility] * (ABNORMAL) TEG-Bypass/ECMO/Liver HN (Factor function, Platelet/Fibrin Clot Strength w/Clot Breakdown, Heparinase In All Channels) (10/27/2024 12:13 AM EDT) Citrated Kaolin Reaction Time (TEGECMOLIVER) 9.1 4.6 - 9.1 minutes 10/27/2024 1:43 AM EDT [facility] Citrated Kaolin W/Heparinase Reaction Time (TEGECMOLIVER) 9.7(H) 4.3 - 8.3 minutes 10/27/2024 1:43 AM EDT [facility] Citrated Kaolin Maximum Amplitude (TEGECMOLIVER) <40.0(L) 52.0 - 69.0 mm 10/27/2024 1:43 AM EDT [facility] Citrated Functional Fibrinogen W/Heparinase Maximum Amplitude(TEGEC MOLIVER) 11.9(L) 15.0 - 34.0 mm 10/27/2024 1:43 AM EDT [facility] Citrated Rapid Teg W/Heparinase Maximum Amplitude (TEGECMOLIVER) 31.6(L) 53.0 - 69.0 mm 10/27/2024 1:43 AM EDT [facility] Citrated Kaolin w/Heparinase Percent Lysis (TEGECMOLIVER) 0.0 0.0 - 3.2 % 10/27/2024 1:43 AM EDT [facility] Whole Blood (Citrate) 10/27/2024 12:13 AM EDT 10/27/2024 12:18 AM EDT us Kemar Sahni MD LAB BLOOD ORDERABLES Final Result [facility] [address] * (ABNORMAL) Lactic Acid (10/27/2024 12:13 AM EDT) Lactate 0.2(L) 0.5 - 2.2 mmol/L 10/27/2024 12:59 AM EDT [facility] Plasma 10/27/2024 12:1 3 AM EDT 10/27/2024 12:31 AM EDT Kemar Sahni MD LAB BLOOD ORDERABLES Final Result [facility] [address] [facility]. [address] * Magnesium (10/27/2024 12:13 AM EDT) Magnesium 1.8 1.5 - 2.5 mg/dL 10/27/2024 12:52 AM EDT [facility] Plasma 10/27/2024 12:1 3 AM EDT 10/27/2024 12:29 AM EDT Kemar Sahni MD LAB BLOOD ORDERABLES Final Result Performing Organization Address [facility] de Phone Number [facility] [address] [facility]. [address] * (ABNORMAL) Hepatic Function Panel (10/27/2024 12:13 AM EDT) Total Bilirubin 1.6(H) 0.0 - 1.5 mg/dL 10/27/2024 12:52 AM EDT [facility] Bilirubin, Direct 1.17(H) 0.00 - 0.40 mg/dL 10/27/2024 12:52 AM EDT [facility] AST 157(H) 13 - 39 U/L 10/27/2024 12:52 AM EDT [facility] ALT 261(H) 7 - 52 U/L 10/27/2024 12:52 AM EDT [facility] Alkaline Phosphatase 26(L) 36 - 125 U/L 10/27/2024 12:52 AM EDT [facility] Total Protein 3.8(L) 6.4 - 8.9 g/dL 10/27/2024 12:52 AM EDT [facility] Albumin 2.8(L) 3.5 - 5.7 g/dL 10/27/2024 12:52 AM EDT [facility] Bilirubin, Indirect 0.43 0.00 - 1.10 mg/dL 10/27/2024 12:52 AM EDT [facility] Plasma 10/27/2024 12:1 3 AM EDT 10/27/2024 12:29 AM EDT Kemar Sahni MD LAB BLOOD ORDERABLES Final Result Performing Organization Address [facility] de Phone Number [facility] [address] [facility]. [address] * (ABNORMAL) Protime-INR (10/27/2024 12:13 AM EDT) Protime 18.6(H) 12.1 - 15.1 seconds 10/27/2024 12:43 AM EDT [facility] INR 1.5(H) 0.9 - 1.1 10/27/2024 12:43 AM EDT [facility] Comment: RECOMMENDED THERAPEUTIC RANGES USING INR : Stable oral anticoagulant therapy: 2.0 - 3.0 Mechanical prosthetic heart valve: 2.5 - 3.5 Recurrent acute myocardial infarction: 2.5 - 3.5 Plasma 10/27/2024 12:1 3 AM EDT 10/27/2024 12:29 AM EDT Kemar Sahni MD LAB BLOOD ORDERABLES Final Result Performing Organization Address [facility] de Phone Number [facility] [address] [facility] * (ABNORMAL) CBC (10/27/2024 12:13 AM EDT) WBC 5.0 3.8 - 10.8 10E3/uL 10/27/2024 12:59 AM EDT [facility] RBC 2.70(L) 4.20 - 5.80 10E6/uL 10/27/2024 12:59 AM EDT [facility] Hemoglobin 8.5(L) 13.2 - 17.1 g/dL 10/27/2024 12:59 AM EDT [facility] Hematocrit 23.9(L) 38.5 - 50.0 % 10/27/2024 12:59 AM EDT [facility] MCV 88.5 80.0 - 100.0 fL 10/27/2024 12:59 AM EDT [facility] MCH 31.5 27.0 - 33.0 pg 10/27/2024 12:59 AM EDT [facility] MCHC 35.6 32.0 - 36.0 g/dL 10/27/2024 12:59 AM EDT [facility] RDW 20.6(H) 11.0 - 15.0 % 10/27/2024 12:59 AM EDT [facility] Platelets 35(L) 140 - 400 10E3/uL 10/27/2024 12:59 AM EDT [facility] Comment: CNV Specimen checked for clots. None detected. MPV 7.6 7.5 - 11.5 fL 10/27/2024 12:59 AM EDT [facility] Whole Blood 10/27/2024 12:1 3 AM EDT 10/27/2024 12:29 AM EDT Kemar Sahni MD LAB BLOOD ORDERABLES Final Result [facility] [address] * (ABNORMAL) Renal Function Panel w/EGFR (10/27/2024 12:13 AM EDT) Sodium 141 133 - 146 mmol/L 10/27/2024 12:52 AM EDT [facility] Potassium 3.2(L) 3.5 - 5.3 mmol/L 10/27/2024 12:52 AM EDT [facility] Chloride 109 98 - 110 mmol/L 10/27/2024 12:52 AM EDT [facility] CO2 21 21 - 33 mmol/L 10/27/2024 12:52 AM EDT [facility] Anion Gap 11 3 - 16 mmol/L 10/27/2024 12:52 AM EDT [facility] BUN 64(H) 7 - 25 mg/dL 10/27/2024 12:52 AM EDT [facility] Creatinine 2.58(H) 0.60 - 1.30 mg/dL 10/27/2024 12:52 AM EDT [facility] Glucose 126(H) 70 - 100 mg/dL 10/27/2024 12:52 AM EDT [facility] Calcium 8.9 8.6 - 10.3 mg/dL 10/27/2024 12:52 AM EDT [facility] Phosphorus 5.3(H) 2.1 - 4.7 mg/dL 10/27/2024 12:52 AM EDT [facility] Albumin 2.8(L) 3.5 - 5.7 g/dL 10/27/2024 12:52 AM EDT [facility] Osmolality, Calculated 312(H) 278 - 305 mOsm/kg 10/27/2024 12:52 AM EDT [facility] EGFR 31 10/27/2024 12:52 AM EDT [facility] Comment:As of 2021, [...] Sahni MD LAB BLOOD ORDERABLES Final Result [facility] [address] [place], [place] [address] * (ABNORMAL) POC Glucose Monitoring Device (10/27/2024 12:08 AM EDT) POC Glucose Monitoring Device 121(H) 70 - 100 mg/dL 10/27/2024 12:08 AM EDT [facility] Blood 10/27/2024 12:0 8 AM EDT 10/27/2024 12:08 AM EDT us Semaj Mcnair III, MD POINT OF CARE TEST ORDERABLES Final Result Performing Organization Address [facility] de Phone Number [facility] [address] * (ABNORMAL) POC Glucose Monitoring Device (10/26/2024 11:15 PM EDT) POC Glucose Monitoring Device 120(H) 70 - 100 mg/dL 10/26/2024 11:15 PM EDT [facility] Blood 10/26/2024 11:1 5 PM EDT 10/26/2024 11:15 PM EDT us Semaj Mcnair III, MD POINT OF CARE TEST ORDERABLES Final Result Performing Organization Address [facility] de Phone Number [facility] [address] * (ABNORMAL) TEG-Bypass/ECMO/Liver HN (Factor function, Platelet/Fibrin Clot Strength w/Clot Breakdown, Heparinase In All Channels) (10/26/2024 10:36 PM EDT) Citrated Kaolin Reaction Time (TEGECMOLIVER) 10.0(H) 4.6 - 9.1 minutes 10/26/2024 11:53 PM EDT [facility] Citrated Kaolin W/Heparinase Reaction Time (TEGECMOLIVER) 10.2(H) 4.3 - 8.3 minutes 10/26/2024 11:53 PM EDT [facility] Citrated Kaolin Maximum Amplitude (TEGECMOLIVER) <40.0(L) 52.0 - 69.0 mm 10/26/2024 11:53 PM EDT [facility] Citrated Functional Fibrinogen W/Heparinase Maximum Amplitude(TEGEC MOLIVER) 11.3(L) 15.0 - 34.0 mm 10/26/2024 11:53 PM EDT [facility] Citrated Rapid Teg W/Heparinase Maximum Amplitude (TEGECMOLIVER) 41.8(L) 53.0 - 69.0 mm 10/26/2024 11:53 PM EDT [facility] Citrated Kaolin w/Heparinase Percent Lysis (TEGECMOLIVER) 0.0 0.0 - 3.2 % 10/26/2024 11:53 PM EDT [facility] Whole Blood (Citrate) 10/26/2024 10:36 PM EDT 10/26/2024 10:43 PM EDT Kemar Sahni MD LAB BLOOD ORDERABLES Final Result Performing Organization Address City/[facility]/ZIP Co de Phone Number [facility] [address] [facility]. [address] * (ABNORMAL) POC Glucose Monitoring Device (10/26/2024 10:14 PM EDT) POC Glucose Monitoring Device 124(H) 70 - 100 mg/dL 10/26/2024 11:11 PM EDT [facility] Blood 10/26/2024 10:1 4 PM EDT 10/26/2024 11:11 PM EDT Semaj Mcnair III, MD POINT OF CARE TEST ORDERABLES Final Result Performing Organization Address City/[facility]/ZIP Co de Phone Number [facility] [address] [facility]. [address] * (ABNORMAL) POC Glucose Monitoring Device (10/26/2024 9:16 PM EDT) POC Glucose Monitoring Device 119(H) 70 - 100 mg/dL 10/26/2024 9:18 PM [facility]T [facility] [facility] Blood 10/26/2024 9:16 PM EDT 10/26/2024 9:18 PM EDT us Semaj Mcnair III, MD POINT OF CARE TEST ORDERABLES Final Result [facility] [address] * (ABNORMAL) POC Glucose Monitoring Device (10/26/2024 8:05 PM EDT) POC Glucose Monitoring Device 113(H) 70 - 100 mg/dL 10/26/2024 8:06 PM EDT [facility] Blood 10/26/2024 8:05 PM EDT 10/26/2024 8:06 PM EDT Semaj Mcnair III, MD POINT OF CARE TEST ORDERABLES Final Result Performing Organization Address [facility] Co de Phone Number [facility] [address] * (ABNORMAL) POC Glucose Monitoring Device (10/26/2024 7:02 PM EDT) POC Glucose Monitoring Device 111(H) 70 - 100 mg/dL 10/26/2024 7:03 PM EDT [facility] Blood 10/26/2024 7:02 PM EDT 10/26/2024 7:03 PM EDT Semaj Mcnair III, MD POINT OF CARE TEST ORDERABLES Final Result Performing Organization Address [facility] de Phone Number [facility] [address] [facility]. [address] * Transfuse Cryoprecipitate Transfusion Rate: Per dept routine (10/26/2024 6:39 PM EDT) John Pina MD NURSING TREATMENT ORDERABLES - BLOOD ADMIN Final Result Performing Organization Address City/[facility] Co de Phone Number EXTERNAL * Transfuse Cryoprecipitate Transfusion Rate: Per dept routine, 1 Units (10/26/2024 6:39 PM EDT) John Pina MD NURSING TREATMENT ORDERABLES - BLOOD ADMIN Final Result Performing Organization Address City/[facility]/ZIP Co de Phone Number EXTERNAL * (ABNORMAL) POC Glucose Monitoring Device (10/26/2024 6:33 PM EDT) POC Glucose Monitoring Device 110(H) 70 - 100 mg/dL 10/26/2024 6:34 PM EDT [facility] Blood 10/26/2024 6:33 PM EDT 10/26/2024 6:34 PM EDT us Semaj Mcnair III, MD POINT OF CARE TEST ORDERABLES Final Result [facility] [address] [facility]. [address] * Transfuse Cryoprecipitate Transfusion Rate: Per dept routine (10/26/2024 6:22 PM EDT) us John Pina MD NURSING TREATMENT ORDERABLES - BLOOD ADMIN Final Result Performing Organization Address City/[facility]/ZIP Co de Phone Number EXTERNAL * Transfuse Cryoprecipitate Transfusion Rate: Per dept routine, 1 Units (10/26/2024 6:22 PM EDT) us John Pina MD NURSING TREATMENT ORDERABLES - BLOOD ADMIN Final Result Performing Organization Address City/[facility] Co de Phone Number EXTERNAL * (ABNORMAL) POC Glucose Monitoring Device (10/26/2024 6:17 PM EDT) POC Glucose Monitoring Device 104(H) 70 - 100 mg/dL 10/26/2024 6:18 PM EDT [facility] Blood 10/26/2024 6:17 PM EDT 10/26/2024 6:18 PM EDT us Semaj Mcnair III, MD POINT OF CARE TEST ORDERABLES Final Result Performing Organization Address City/[facility] Co de Phone Number [facility] [address] * (ABNORMAL) POC Glucose Monitoring Device (10/26/2024 4:58 PM EDT) POC Glucose Monitoring Device 115(H) 70 - 100 mg/dL 10/26/2024 4:59 PM EDT [facility] Blood 10/26/2024 4:58 PM EDT 10/26/2024 4:58 PM EDT Semaj Mcnair III, MD POINT OF CARE TEST ORDERABLES Final Result Performing Organization Address [facility] Co de Phone Number [facility] [address] [place] [address] * (ABNORMAL) Calcium Free, Serum (10/26/2024 4:42 PM EDT) Free Calcium, Ser 5.67(H) 4.40 - 5.40 mg/dL 10/26/2024 4:55 PM EDT [facility] Comment:Free calcium levels vary inversely with pH by approximately 5% for each 0.1 unit of pH change. Assay results have been normalized to pH = 7.40. Serum 10/26/2024 4:42 PM EDT 10/26/2024 4:47 PM EDT Narrative [facility] - 10/26/2024 4:55 PM EDT This test has been developed and its performance characteristics determined by [facility] which is certified under the Clinical Laboratory Improvement Amendment of 1988 (CLIA-88) to perform high complexity testing. The test has not been cleared or approved by the US Food and Drug Administration (FDA). The FDA has determined that such clearance is not necessary. The test should be used for clinical purposes and is not regarded as investigational. us Jhon Pina MD LAB BLOOD ORDERABLES Final Resu lt Performing Organization Address City/[facility]/ZIP Co de Phone Number [facility] [address] * Repeat Crossmatch (Recipient Sample) (10/26/2024 4:42 PM EDT) Repeat Cx - Recipient The request and specimen(s) for this test have been received and transported to the [facility] at [address] [place] [address]. The [facility] will report results directly to the client. 10/26/2024 4:49 PM EDT [facility] Whole Blood 10/26/2024 4:42 PM EDT 10/26/2024 4:49 PM EDT Narrative [facility] - 10/26/2024 4:49 PM EDT To be sent to [facility] for Donor UNOS#[id number] cross match with Blair Gilbert Sveta Judge MD LAB BLOOD ORDERABLES Final Resu lt [facility] [address] * (ABNORMAL) Lactic Acid (10/26/2024 4:42 PM EDT) Lactate 0.3(L) 0.5 - 2.2 mmol/L 10/26/2024 5:19 PM EDT [facility] Plasma 10/26/2024 4:42 PM EDT 10/26/2024 4:47 PM EDT Kemar Sahni MD LAB BLOOD ORDERABLES Final Result Performing Organization Address City/[facility]/ZIP Co de Phone Number [facility] [address] [facility]. [address] * Magnesium (10/26/2024 4:42 PM EDT) Magnesium 2.0 1.5 - 2.5 mg/dL 10/26/2024 5:24 PM EDT [facility] Plasma 10/26/2024 4:42 PM EDT 10/26/2024 4:47 PM EDT Kemar Sahni MD LAB BLOOD ORDERABLES Final Result [facility] [address] * (ABNORMAL) Hepatic Function Panel (10/26/2024 4:42 PM EDT) Total Bilirubin 2.3(H) 0.0 - 1.5 mg/dL 10/26/2024 5:24 PM EDT [facility] Bilirubin, Direct 1.85(H) 0.00 - 0.40 mg/dL 10/26/2024 5:24 PM EDT [facility] AST 374(H) 13 - 39 U/L 10/26/2024 5:24 PM EDT [facility] ALT 458(H) 7 - 52 U/L 10/26/2024 5:24 PM EDT [facility] Alkaline Phosphatase 39 36 - 125 U/L 10/26/2024 5:24 PM EDT [facility] Total Protein 3.8(L) 6.4 - 8.9 g/dL 10/26/2024 5:24 PM EDT [facility] Albumin 3.0(L) 3.5 - 5.7 g/dL 10/26/2024 5:24 PM EDT [facility] Bilirubin, Indirect 0.45 0.00 - 1.10 mg/dL 10/26/2024 5:24 PM EDT [facility] Plasma 10/26/2024 4:42 PM EDT 10/26/2024 4:47 PM EDT Kemar Sahni MD LAB BLOOD ORDERABLES Final Result Performing Organization Address City/State/[facility] Co de Phone Number [facility] [address] * (ABNORMAL) Protime-INR (10/26/2024 4:42 PM EDT) Protime 20.3(H) 12.1 - 15.1 seconds 10/26/2024 5:12 PM EDT [facility] INR 1.7(H) 0.9 - 1.1 10/26/2024 5:12 PM EDT [facility] Comment: RECOMMENDED THERAPEUTIC RANGES USING INR : Stable oral anticoagulant therapy: 2.0 - 3.0 Mechanical prosthetic heart valve: 2.5 - 3.5 Recurrent acute myocardial infarction: 2.5 - 3.5 Plasma 10/26/2024 4:42 PM EDT 10/26/2024 4:47 PM EDT Kemar Sahni MD LAB BLOOD ORDERABLES Final Result [facility] [address] [place] [address], [facility] * (ABNORMAL) CBC (10/26/2024 4:42 PM EDT) WBC 10.0 3.8 - 10.8 10E3/uL 10/26/2024 5:00 PM EDT [facility] RBC 3.44(L) 4.20 - 5.80 10E6/uL 10/26/2024 5:00 PM EDT [facility] Hemoglobin 10.5(L) 13.2 - 17.1 g/dL 10/26/2024 5:00 PM EDT [facility] Hematocrit 30.2(L) 38.5 - 50.0 % 10/26/2024 5:00 PM EDT [facility] MCV 87.7 80.0 - 100.0 fL 10/26/2024 5:00 PM EDT [facility] MCH 30.6 27.0 - 33.0 pg 10/26/2024 5:00 PM EDT [facility] MCHC 34.8 32.0 - 36.0 g/dL 10/26/2024 5:00 PM EDT [facility] RDW 20.1(H) 11.0 - 15.0 % 10/26/2024 5:00 PM EDT [facility] Platelets 48(L) 140 - 400 10E3/uL 10/26/2024 5:00 PM EDT [facility] Comment:Specimen checked for clots. None detected. MPV 7.9 7.5 - 11.5 fL 10/26/2024 5:00 PM EDT [facility] Whole Blood 10/26/2024 4:42 PM EDT 10/26/2024 4:47 PM EDT Kemar Sahni MD LAB BLOOD ORDERABLES Final Result [facility] [address] [place] [address], [facility] * (ABNORMAL) Renal Function Panel w/EGFR (10/26/2024 4:42 PM EDT) Sodium 142 133 - 146 mmol/L 10/26/2024 5:24 PM EDT [facility] Potassium 3.3(L) 3.5 - 5.3 mmol/L 10/26/2024 5:24 PM EDT [facility] Chloride 109 98 - 110 mmol/L 10/26/2024 5:24 PM EDT [facility] CO2 23 21 - 33 mmol/L 10/26/2024 5:24 PM EDT [facility] Anion Gap 10 3 - 16 mmol/L 10/26/2024 5:24 PM EDT [facility] BUN 63(H) 7 - 25 mg/dL 10/26/2024 5:24 PM EDT [facility] Creatinine 2.85(H) 0.60 - 1.30 mg/dL 10/26/2024 5:24 PM EDT [facility] Glucose 127(H) 70 - 100 mg/dL 10/26/2024 5:24 PM EDT [facility] Calcium 8.9 8.6 - 10.3 mg/dL 10/26/2024 5:24 PM EDT [facility] Phosphorus 4.4 2.1 - 4.7 mg/dL 10/26/2024 5:24 PM EDT [facility] Albumin 3.0(L) 3.5 - 5.7 g/dL 10/26/2024 5:24 PM EDT [facility] Osmolality, Calculated 314(H) 278 - 305 mOsm/kg 10/26/2024 5:24 PM EDT [facility] EGFR 28 10/26/2024 5:24 PM EDT [facility] Comment:As of 2021, [...] BLOOD ORDERABLES Final Result Performing Organization Address City/[facility]/ZIP Co de Phone Number [facility] [address] [facility]. [address] * (ABNORMAL) POC Glucose Monitoring Device (10/26/2024 3:54 PM EDT) POC Glucose Monitoring Device 126(H) 70 - 100 mg/dL 10/26/2024 3:55 PM EDT [facility] Blood 10/26/2024 3:54 PM EDT 10/26/2024 3:55 PM EDT Semaj Mcnair III, MD POINT OF CARE TEST ORDERABLES Final Result Performing Organization Address [facility] Co de Phone Number [facility] [address] [facility]. [address] * (ABNORMAL) POC Glucose Monitoring Device (10/26/2024 3:06 PM EDT) POC Glucose Monitoring Device 144(H) 70 - 100 mg/dL 10/26/2024 3:14 PM EDT [facility] Blood 10/26/2024 3:06 PM EDT 10/26/2024 3:13 PM EDT Semaj Mcnair III, MD POINT OF CARE TEST ORDERABLES Final Result Performing Organization Address City/[facility]/ZIP Co de Phone Number [facility] [address] [facility]. [address] * (ABNORMAL) TEG-Bypass/ECMO/Liver HN (Factor function, Platelet/Fibrin Clot Strength w/Clot Breakdown, Heparinase In All Channels) (10/26/2024 3:03 PM EDT) [facility] Citrated Kaolin Reaction Time (TEGECMOLIVER) 8.2 4.6 - 9.1 minutes 10/26/2024 4:43 PM EDT [facility] Citrated Kaolin W/Heparinase Reaction Time (TEGECMOLIVER) 8.2 4.3 - 8.3 minutes 10/26/2024 4:43 PM EDT [facility] Citrated Kaolin Maximum Amplitude (TEGECMOLIVER) 41.7(L) 52.0 - 69.0 mm 10/26/2024 4:43 PM EDT [facility] Citrated Functional Fibrinogen W/Heparinase Maximum Amplitude(TEGEC MOLIVER) 11.4(L) 15.0 - 34.0 mm 10/26/2024 4:43 PM EDT [facility] Citrated Rapid Teg W/Heparinase Maximum Amplitude (TEGECMOLIVER) 38.6(L) 53.0 - 69.0 mm 10/26/2024 4:43 PM EDT [facility] Citrated Kaolin w/Heparinase Percent Lysis (TEGECMOLIVER) 0.0 0.0 - 3.2 % 10/26/2024 4:43 PM EDT [facility] Whole Blood (Citrate) 10/26/2024 3:03 PM EDT 10/26/2024 3:10 PM EDT us Jani Mooney MD LAB BLOOD ORDERABLES Final Resul t [facility] [address] * ECG 12 lead (MUSE) (10/26/2024 2:19 PM EDT) 10/26/2024 2:19 PM EDT Narrative MUSE - 10/27/2024 10:09 AM EDT Ventricular Rate: 105 BPM Atrial Rate: 105 BPM P-R Interval: 128 ms QRS Duration: 94 ms QT: 474 ms QTc: 626 ms R Elizabeth: -37 degrees T Elizabeth: 35 degrees Diagnosis Line: Critical Test Result: Long QTc ^ SINUS TACHYCARDIA ^ LEFT AXIS DEVIATION, LEFT ANTERIOR HEMIBLOCK ^ PROLONGED QT ^ ABNORMAL ECG ^ ^ Confirmed by MD HA, NOAHYAR ([id number]) on 10/27/2024 10:09:25 AM Quinten Best MD ECG ORDERABLES Final Result Performing Organization Address [facility] Co de Phone Number MUSE * (ABNORMAL) POC Glucose Monitoring Device (10/26/2024 2:00 PM EDT) POC Glucose Monitoring Device 183(H) 70 - 100 mg/dL 10/26/2024 2:01 PM EDT [facility] Blood 10/26/2024 2:00 PM EDT 10/26/2024 2:01 PM EDT Semaj Mcnair III, MD POINT OF CARE TEST ORDERABLES Final Result Performing Organization Address [facility] de Phone Number [facility] [address] * (ABNORMAL) POC Glucose Monitoring Device (10/26/2024 1:05 PM EDT) POC Glucose Monitoring Device 212(H) 70 - 100 mg/dL 10/26/2024 1:06 PM EDT [facility] Blood 10/26/2024 1:05 PM EDT 10/26/2024 1:06 PM EDT Semaj Mcnair III, MD POINT OF CARE TEST ORDERABLES Final Result Performing Organization Address [facility] Co de Phone Number [facility] [address] * Transfuse Cryoprecipitate Has consent been obtained? Yes; Transfusion Rate: Per dept routine (10/26/2024 12:25 PM EDT) Result [facility] Shay Sifuentes MD NURSING TREATMENT ORDERABLES - BLOOD ADMIN Final Result Performing Organization Address [facility] de Phone Number EXTERNAL * Transfuse Cryoprecipitate Has consent been obtained? Yes; Transfusion Rate: Per dept routine, 1 Units (10/26/2024 12:25 PM EDT) Shay Sifuentes MD NURSING TREATMENT ORDERABLES - BLOOD ADMIN Final Result Performing Organization Address [facility] de Phone Number EXTERNAL * (ABNORMAL) POC Glucose Monitoring Device (10/26/2024 12:06 PM EDT) POC Glucose Monitoring Device 226(H) 70 - 100 mg/dL 10/26/2024 12:07 PM EDT [facility] Blood 10/26/2024 12:0 6 PM EDT 10/26/2024 12:07 PM EDT Semaj Mcnair III, MD POINT OF CARE TEST ORDERABLES Final Result Performing Organization Address [facility] de Phone Number [facility] [address] * Transfuse Cryoprecipitate Transfusion Rate: Per dept routine (10/26/2024 12:01 PM EDT) Result [facility] John Pina MD NURSING TREATMENT ORDERABLES - BLOOD ADMIN Final Result Performing Organization Address [facility] de Phone Number EXTERNAL * Transfuse Cryoprecipitate Transfusion Rate: Per dept routine, 1 Units (10/26/2024 12:01 PM EDT) John Pina MD NURSING TREATMENT ORDERABLES - BLOOD ADMIN Final Result Performing Organization Address [facility] de Phone Number EXTERNAL * Lactic Acid (10/26/2024 10:48 AM EDT) Lactate 1.2 0.5 - 2.2 mmol/L 10/26/2024 11:27 AM EDT [facility] Plasma 10/26/2024 10:4 8 AM EDT 10/26/2024 10:53 AM EDT Kemar Sahni MD LAB BLOOD ORDERABLES Final Result [facility] [address] [facility]. [address] * Magnesium (10/26/2024 10:48 AM EDT) Magnesium 2.0 1.5 - 2.5 mg/dL 10/26/2024 11:26 AM EDT [facility] Plasma 10/26/2024 10:4 8 AM EDT 10/26/2024 10:53 AM EDT Kemar Sahni MD LAB BLOOD ORDERABLES Final Result Performing Organization Address City/[facility] Co de Phone Number [facility] [address] [facility]. [address] * (ABNORMAL) Hepatic Function Panel (10/26/2024 10:48 AM EDT) Total Bilirubin 5.9(H) 0.0 - 1.5 mg/dL 10/26/2024 11:26 AM EDT [facility] Bilirubin, Direct 4.74(H) 0.00 - 0.40 mg/dL 10/26/2024 11:26 AM EDT [facility] AST 872(H) 13 - 39 U/L 10/26/2024 11:26 AM EDT [facility] ALT 736(H) 7 - 52 U/L 10/26/2024 11:26 AM EDT [facility] Alkaline Phosphatase 56 36 - 125 U/L 10/26/2024 11:26 AM EDT [facility] Total Protein 3.5(L) 6.4 - 8.9 g/dL 10/26/2024 11:26 AM EDT [facility] Albumin 2.5(L) 3.5 - 5.7 g/dL 10/26/2024 11:26 AM EDT [facility] Bilirubin, Indirect 1.16(H) 0.00 - 1.10 mg/dL 10/26/2024 11:26 AM EDT [facility] Plasma 10/26/2024 10:4 8 AM EDT 10/26/2024 10:53 AM EDT Kemar Sahni MD LAB BLOOD ORDERABLES Final Result Performing Organization Address [facility] de Phone Number [facility] [address] [facility]. [address] * (ABNORMAL) Protime-INR (10/26/2024 10:48 AM EDT) Protime 23.0(H) 12.1 - 15.1 seconds 10/26/2024 11:26 AM EDT [facility] INR 2.0(H) 0.9 - 1.1 10/26/2024 11:26 AM EDT [facility] Comment: RECOMMENDED THERAPEUTIC RANGES USING INR : Stable oral anticoagulant therapy: 2.0 - 3.0 Mechanical prosthetic heart valve: 2.5 - 3.5 Recurrent acute myocardial infarction: 2.5 - 3.5 Plasma 10/26/2024 10:4 8 AM EDT 10/26/2024 10:53 AM EDT Kemar Sahni MD LAB BLOOD ORDERABLES Final Result Performing Organization Address [facility] de Phone Number [facility] [address] [facility]. [address] * (ABNORMAL) CBC (10/26/2024 10:48 AM EDT) WBC 17.3(H) 3.8 - 10.8 10E3/uL 10/26/2024 11:14 AM EDT [facility] RBC 4.22 4.20 - 5.80 10E6/uL 10/26/2024 11:14 AM EDT [facility] Hemoglobin 12.8(L) 13.2 - 17.1 g/dL 10/26/2024 11:14 AM EDT [facility] Hematocrit 37.2(L) 38.5 - 50.0 % 10/26/2024 11:14 AM EDT [facility] MCV 88.3 80.0 - 100.0 fL 10/26/2024 11:14 AM EDT [facility] MCH 30.4 27.0 - 33.0 pg 10/26/2024 11:14 AM EDT [facility] MCHC 34.4 32.0 - 36.0 g/dL 10/26/2024 11:14 AM EDT [facility] RDW 20.8(H) 11.0 - 15.0 % 10/26/2024 11:14 AM EDT [facility] Platelets 109(L) 140 - 400 10E3/uL 10/26/2024 11:14 AM EDT [facility] MPV 7.5 7.5 - 11.5 fL 10/26/2024 11:14 AM EDT [facility] Whole Blood 10/26/2024 10:4 8 AM EDT 10/26/2024 10:53 AM EDT us Kemar Sahni MD LAB BLOOD ORDERABLES Final Result Performing Organization Address City/State/[facility] Co de Phone Number [facility] [address] * (ABNORMAL) Blood gas, arterial (10/26/2024 10:48 AM EDT) O2 Sat, Arterial 97 10/26/2024 10:54 AM EDT [facility] FIO2 35% 10/26/2024 10:54 AM EDT [facility] pH, Arterial 7.37 7.35 - 7.45 10/26/2024 10:54 AM EDT [facility] pCO2, Arterial 36 35 - 45 mm Hg 10/26/2024 10:54 AM EDT [facility] pO2, Arterial 91 80 - 100 mm Hg 10/26/2024 10:54 AM EDT [facility] HCO3, Arterial 22 22 - 26 mmol/L 10/26/2024 10:54 AM EDT [facility] CO2 Content,Arteri al 22(L) 23 - 27 mmol/L 10/26/2024 10:54 AM EDT [facility] Base Excess, Arterial -3.9(L) -2.0 - 3.0 mmol/L 10/26/2024 10:54 AM EDT [facility] %HBO2, Arterial 94.8(L) 95.0 - 98.0 % 10/26/2024 10:54 AM EDT [facility] Carboxyhemoglo bin, Arterial 1.9 % 10/26/2024 10:54 AM EDT [facility] Comment: CARBOXYHEMOGLOBIN (CO) REFERENCE RANGES: Non-Smokers: <2 % Smokers: <8 % TOXIC: >20 % Methemoglobin, Arterial 0.7 0.0 - 1.5 % 10/26/2024 10:54 AM EDT [facility] Reduced hemoglobin, Arterial 2.5 0.0 - 5.0 % 10/26/2024 10:54 AM EDT [facility] Blood, Arterial 10/26/2024 1 0:48 AM EDT 10/26/2024 10:52 AM EDT us Sahy Sifuentes MD LAB BLOOD ORDERABLES Final Resu lt [facility] [address] * (ABNORMAL) Renal Function Panel w/EGFR (10/26/2024 10:48 AM EDT) Sodium 139 133 - 146 mmol/L 10/26/2024 11:26 AM EDT [facility] Potassium 2.9(LL) 3.5 - 5.3 mmol/L 10/26/2024 11:26 AM EDT [facility] Comment:K CRITICAL VALUE WAS PREVIOUSLY CALLED Chloride 107 98 - 110 mmol/L 10/26/2024 11:26 AM EDT [facility] CO2 22 21 - 33 mmol/L 10/26/2024 11:26 AM EDT [facility] Anion Gap 10 3 - 16 mmol/L 10/26/2024 11:26 AM EDT [facility] BUN 61(H) 7 - 25 mg/dL 10/26/2024 11:26 AM EDT [facility] Creatinine 2.78(H) 0.60 - 1.30 mg/dL 10/26/2024 11:26 AM EDT [facility] Glucose 253(H) 70 - 100 mg/dL 10/26/2024 11:26 AM EDT [facility] Calcium 8.8 8.6 - 10.3 mg/dL 10/26/2024 11:26 AM EDT [facility] Phosphorus 4.1 2.1 - 4.7 mg/dL 10/26/2024 11:26 AM EDT [facility] Albumin 2.5(L) 3.5 - 5.7 g/dL 10/26/2024 11:26 AM EDT [facility] Osmolality, Calculated 314(H) 278 - 305 mOsm/kg 10/26/2024 11:26 AM EDT [facility] EGFR 28 10/26/2024 11:26 AM EDT [facility] Comment:As of 2021, [...] Sahni MD LAB BLOOD ORDERABLES Final Result [facility] [address] [id number], [facility] * (ABNORMAL) POC Glucose Monitoring Device (10/26/2024 10:47 AM EDT) POC Glucose Monitoring Device 234(H) 70 - 100 mg/dL 10/26/2024 10:48 AM EDT [facility] Blood 10/26/2024 10:4 7 AM EDT 10/26/2024 10:48 AM EDT us Semaj Mcnair III, MD POINT OF CARE TEST ORDERABLES Final Result Performing Organization Address [facility] Co de Phone Number [facility] [address] [place] [address] * CARISA Rhythm Strip - Scan (10/26/2024 10:45 AM EDT) us Scanning Uchhim SCAN DOCS - NO RESULTS Final Res ult * (ABNORMAL) POC Glucose Monitoring Device (10/26/2024 10:08 AM EDT) POC Glucose Monitoring Device 235(H) 70 - 100 mg/dL 10/26/2024 10:09 AM EDT [facility] Blood 10/26/2024 10:0 8 AM EDT 10/26/2024 10:09 AM EDT Semaj Mcnair III, MD POINT OF CARE TEST ORDERABLES Final Result Performing Organization Address [facility] Co de Phone Number [facility] [address] [facility]. [address] * (ABNORMAL) POC Glucose Monitoring Device (10/26/2024 8:57 AM EDT) POC Glucose Monitoring Device 232(H) 70 - 100 mg/dL 10/26/2024 8:59 AM EDT [facility] Blood 10/26/2024 8:57 AM EDT 10/26/2024 8:58 AM EDT us Semaj Mcnair III, MD POINT OF CARE TEST ORDERABLES Final Result Performing Organization Address City/[facility] Co de Phone Number [facility] [address] * ECG 12 lead (MUSE) (10/26/2024 8:16 AM EDT) 10/26/2024 8:16 AM EDT Narrative MUSE - 10/27/2024 10:09 AM EDT Ventricular Rate: 112 BPM QRS Duration: 96 ms QT: 452 ms QTc: 616 ms R Elizabeth: -41 degrees T Elizabeth: 40 degrees Diagnosis Line: Critical Test Result: Long QTc ^ SINUS TACHYCARDIA OCCASIONAL PREMATURE VENTRICULAR COMPLEXES ^ LEFT AXIS DEVIATION, LEFT ANTERIOR HEMIBLOCK ^ PROLONGED QT ^ ABNORMAL ECG ^ ^ Confirmed by MD HA, [facility] ([id number]) on 10/27/2024 10:09:18 AM [...] Glucose Monitoring Device (10/26/2024 7:59 AM EDT) [facility] POC Glucose Monitoring Device 229(H) 70 - 100 mg/dL 10/26/2024 8:01 AM EDT [facility] Blood 10/26/2024 7:59 AM EDT 10/26/2024 8:00 AM EDT Semaj Mcnair III, MD POINT OF CARE TEST ORDERABLES Final Result [facility] [address] * (ABNORMAL) TEG-Bypass/ECMO/Liver HN (Factor function, Platelet/Fibrin Clot Strength w/Clot Breakdown, Heparinase In All Channels) (10/26/2024 7:59 AM EDT) Citrated Kaolin Reaction Time (TEGECMOLIVER) 8.2 4.6 - 9.1 minutes 10/26/2024 10:36 AM EDT [facility] Citrated Kaolin W/Heparinase Reaction Time (TEGECMOLIVER) 8.1 4.3 - 8.3 minutes 10/26/2024 10:36 AM EDT [facility] Citrated Kaolin Maximum Amplitude (TEGECMOLIVER) 46.8(L) 52.0 - 69.0 mm 10/26/2024 10:36 AM EDT [facility] Citrated Functional Fibrinogen W/Heparinase Maximum Amplitude(TEGEC MOLIVER) 10.5(L) 15.0 - 34.0 mm 10/26/2024 10:36 AM EDT [facility] Citrated Rapid Teg W/Heparinase Maximum Amplitude (TEGECMOLIVER) 45.5(L) 53.0 - 69.0 mm 10/26/2024 10:36 AM EDT [facility] Citrated Kaolin w/Heparinase Percent Lysis (TEGECMOLIVER) 0.0 0.0 - 3.2 % 10/26/2024 10:36 AM EDT [facility] Whole Blood (Citrate) 10/26/2024 7:59 AM EDT 10/26/2024 8:05 AM EDT Shay Sifuentes MD LAB BLOOD ORDERABLES Final Resu lt Performing Organization Address [facility]/ZIP Co de Phone Number [facility] [address] [facility]. [address] * (ABNORMAL) POC Glucose Monitoring Device (10/26/2024 6:12 AM EDT) POC Glucose Monitoring Device 196(H) 70 - 100 mg/dL 10/26/2024 6:13 AM EDT [facility] Blood 10/26/2024 6:12 AM EDT 10/26/2024 6:13 AM EDT Semaj Mcnair III, MD POINT OF CARE TEST ORDERABLES Final Result Performing Organization Address [facility] Co de Phone Number [facility] [address] [facility]. [address] * Lactic Acid (10/26/2024 6:10 AM EDT) Lactate 1.2 0.5 - 2.2 mmol/L 10/26/2024 6:39 AM EDT [facility] Plasma 10/26/2024 6:10 AM EDT 10/26/2024 6:19 AM EDT Sveta Judge MD LAB BLOOD ORDERABLES Final Resu lt Performing Organization Address [facility]/ZIP Co de Phone Number [facility] [address] [facility]. [address] * (ABNORMAL) Fibrinogen (10/26/2024 6:10 AM EDT) Fibrinogen 160(L) 218 - 406 mg/dL 10/26/2024 6:41 AM EDT [facility] Plasma 10/26/2024 6:10 AM EDT 10/26/2024 6:26 AM EDT Sveta Judge MD LAB BLOOD ORDERABLES Final Resu lt Performing Organization Address [facility] Co de Phone Number [facility] [address] * (ABNORMAL) Protime-INR (10/26/2024 6:10 AM EDT) Protime 25.0(H) 12.1 - 15.1 seconds 10/26/2024 6:41 AM EDT [facility] INR 2.2(H) 0.9 - 1.1 10/26/2024 6:41 AM EDT [facility] Comment: RECOMMENDED THERAPEUTIC RANGES USING INR : Stable oral anticoagulant therapy: 2.0 - 3.0 Mechanical prosthetic heart valve: 2.5 - 3.5 Recurrent acute myocardial infarction: 2.5 - 3.5 Plasma 10/26/2024 6:10 AM EDT 10/26/2024 6:26 AM EDT Sveta Judge MD LAB BLOOD ORDERABLES Final Resu lt [facility] [address] * (ABNORMAL) Blood gas, arterial (10/26/2024 6:10 AM EDT) O2 Sat, Arterial 98 10/26/2024 6:23 AM EDT [facility] FIO2 60 10/26/2024 6:23 AM EDT [facility] pH, Arterial 7.27(L) 7.35 - 7.45 10/26/2024 6:23 AM EDT [facility] pCO2, Arterial 47(H) 35 - 45 mm Hg 10/26/2024 6:23 AM EDT [facility] pO2, Arterial 127(H) 80 - 100 mm Hg 10/26/2024 6:23 AM EDT [facility] HCO3, Arterial 21(L) 22 - 26 mmol/L 10/26/2024 6:23 AM EDT [facility] CO2 Content,Arteri al 23 23 - 27 mmol/L 10/26/2024 6:23 AM EDT [facility] Base Excess, Arterial -5.4(L) -2.0 - 3.0 mmol/L 10/26/2024 6:23 AM EDT [facility] %HBO2, Arterial 94.6(L) 95.0 - 98.0 % 10/26/2024 6:23 AM EDT [facility] Carboxyhemoglo bin, Arterial 2.0 % 10/26/2024 6:23 AM EDT [facility] Comment: CARBOXYHEMOGLOBIN (CO) REFERENCE RANGES: Non-Smokers: <2 % Smokers: <8 % TOXIC: >20 % Methemoglobin, Arterial 1.6(H) 0.0 - 1.5 % 10/26/2024 6:23 AM EDT [facility] Reduced hemoglobin, Arterial 1.8 0.0 - 5.0 % 10/26/2024 6:23 AM EDT [facility] Blood, Arterial 10/26/2024 6 :10 AM EDT 10/26/2024 6:20 AM EDT Sveta Judge MD LAB BLOOD ORDERABLES Final Resu lt [facility] [address] * Magnesium (10/26/2024 6:10 AM EDT) Magnesium 1.5 1.5 - 2.5 mg/dL 10/26/2024 7:09 AM EDT [facility] Plasma 10/26/2024 6:10 AM EDT 10/26/2024 6:23 AM EDT vSeta Judge MD LAB BLOOD ORDERABLES Final Resu lt [facility] [address] [place] [address], [facility] * (ABNORMAL) Hepatic Function Panel (10/26/2024 6:10 AM EDT) Total Bilirubin 6.2(H) 0.0 - 1.5 mg/dL 10/26/2024 7:11 AM EDT [facility] Bilirubin, Direct 5.26(H) 0.00 - 0.40 mg/dL 10/26/2024 7:11 AM EDT [facility] AST 1,071(H) 13 - 39 U/L 10/26/2024 7:11 AM EDT [facility] ALT 805(H) 7 - 52 U/L 10/26/2024 7:11 AM EDT [facility] Alkaline Phosphatase 55 36 - 125 U/L 10/26/2024 7:11 AM EDT [facility] Total Protein <3.0(L) 6.4 - 8.9 g/dL 10/26/2024 7:11 AM EDT [facility] Albumin 1.9(L) 3.5 - 5.7 g/dL 10/26/2024 7:11 AM EDT [facility] Bilirubin, Indirect 0.94 0.00 - 1.10 mg/dL 10/26/2024 7:11 AM EDT [facility] Plasma 10/26/2024 6:10 AM EDT 10/26/2024 6:23 AM EDT Sveta Judge MD LAB BLOOD ORDERABLES Final Resu lt [facility] [address] [place] [address], [facility] * (ABNORMAL) Renal Function Panel w/EGFR (10/26/2024 6:10 AM EDT) Sodium 141 133 - 146 mmol/L 10/26/2024 7:09 AM EDT [facility] Potassium 2.8(LL) 3.5 - 5.3 mmol/L 10/26/2024 7:09 AM EDT [facility] Comment:Critical value previ ously called. Chloride 106 98 - 110 mmol/L 10/26/2024 7:09 AM EDT [facility] CO2 25 21 - 33 mmol/L 10/26/2024 7:09 AM EDT [facility] Anion Gap 10 3 - 16 mmol/L 10/26/2024 7:09 AM EDT [facility] BUN 57(H) 7 - 25 mg/dL 10/26/2024 7:09 AM EDT [facility] Creatinine 2.70(H) 0.60 - 1.30 mg/dL 10/26/2024 7:09 AM EDT [facility] Glucose 210(H) 70 - 100 mg/dL 10/26/2024 7:09 AM EDT [facility] Calcium 8.7 8.6 - 10.3 mg/dL 10/26/2024 7:09 AM EDT [facility] Phosphorus 5.4(H) 2.1 - 4.7 mg/dL 10/26/2024 7:09 AM EDT [facility] Albumin 1.9(L) 3.5 - 5.7 g/dL 10/26/2024 7:11 AM EDT [facility] Osmolality, Calculated 314(H) 278 - 305 mOsm/kg 10/26/2024 7:09 AM EDT [facility] EGFR 29 10/26/2024 7:09 AM EDT [facility] Comment:As of 2021, [...] MD LAB BLOOD ORDERABLES Final Resu lt [facility] [address] [id number], [facility] * (ABNORMAL) CBC (10/26/2024 6:10 AM EDT) WBC 14.8(H) 3.8 - 10.8 10E3/uL 10/26/2024 6:46 AM EDT [facility] RBC 4.04(L) 4.20 - 5.80 10E6/uL 10/26/2024 6:46 AM EDT [facility] Hemoglobin 12.7(L) 13.2 - 17.1 g/dL 10/26/2024 6:46 AM EDT [facility] Hematocrit 35.9(L) 38.5 - 50.0 % 10/26/2024 6:46 AM EDT [facility] MCV 89.0 80.0 - 100.0 fL 10/26/2024 6:46 AM EDT [facility] MCH 31.3 27.0 - 33.0 pg 10/26/2024 6:46 AM EDT [facility] MCHC 35.2 32.0 - 36.0 g/dL 10/26/2024 6:46 AM EDT [facility] RDW 19.7(H) 11.0 - 15.0 % 10/26/2024 6:46 AM EDT [facility] Platelets 107(L) 140 - 400 10E3/uL 10/26/2024 6:46 AM EDT [facility] MPV 7.4(L) 7.5 - 11.5 fL 10/26/2024 6:46 AM EDT [facility] Whole Blood 10/26/2024 6:10 AM EDT 10/26/2024 6:26 AM EDT us Sveta Judge MD LAB BLOOD ORDERABLES Final Resu lt [facility] [address] * (ABNORMAL) POC INR (10/26/2024 5:16 AM EDT) Pathologist [facility] Prothrombin Time INR, POC 2.4(H) 0.8 - 1.4 10/27/2024 6:51 AM EDT [facility] Comment: Test results [...] TEST ORDERABLES Final Result Performing Organization Address [facility] Co de Phone Number [facility] [address] [facility]. [address] * POC Sample Type (10/26/2024 5:14 AM EDT) [facility] POC Sample Type Arterial 10/26/2024 5:31 AM EDT [facility] Blood, Arterial 10/26/2024 5 :14 AM EDT 10/26/2024 5:31 AM EDT us Semaj Mcnair III, MD POINT OF CARE TEST ORDERABLES Final Result Performing Organization Address [facility]/ZIP Co de Phone Number [facility] [address] [facility]. [address] * POC Anion Gap (10/26/2024 5:14 AM EDT) [facility] POC Anion Gap, Arterial 12 3 - 16 mmol/L 10/26/2024 5:31 AM EDT [facility] Blood, Arterial 10/26/2024 5 :14 AM EDT 10/26/2024 5:31 AM EDT Semaj Mcnair III, MD POINT OF CARE TEST ORDERABLES Final Result Performing Organization Address City/[facility] Co de Phone Number [facility] [address] [facility]. [address] * POC Chloride (10/26/2024 5:14 AM EDT) POC Chloride 104 98 - 110 mmol/L 10/26/2024 5:31 AM EDT [facility] Blood, Arterial 10/26/2024 5 :14 AM EDT 10/26/2024 5:31 AM EDT Semaj Mcnair III, MD POINT OF CARE TEST ORDERABLES Final Result Performing Organization Address [facility] Co de Phone Number [facility] [address] [facility]. [address] * (ABNORMAL) POC Hemoglobin (10/26/2024 5:14 AM EDT) POC Hemoglobin 9.5(L) 14.0 - 18.0 g/dL 10/26/2024 5:31 AM EDT [facility] Blood, Arterial 10/26/2024 5 :14 AM EDT 10/26/2024 5:31 AM EDT Semaj Mcnair III, MD POINT OF CARE TEST ORDERABLES Final Result Performing Organization Address City/[facility] Co de Phone Number [facility] [address] [facility]. [address] * (ABNORMAL) POC hematocrit (10/26/2024 5:14 AM EDT) POC Hematocrit 28.0(L) 40 - 52 % 10/26/2024 5:31 AM EDT [facility] Blood, Arterial 10/26/2024 5 :14 AM EDT 10/26/2024 5:31 AM EDT us Semaj Haines Quillin III, MD POINT OF CARE TEST ORDERABLES Final Result Performing Organization Address City/[facility]/ZIP Co de Phone Number [facility] [address] * POC Lactate (10/26/2024 5:14 AM EDT) POC Lactate 1.76 0.50 - 2.20 mmol/L 10/26/2024 5:31 AM EDT [facility] Blood, Arterial 10/26/2024 5 :14 AM EDT 10/26/2024 5:31 AM EDT us Semaj Mcnair III, MD POINT OF CARE TEST ORDERABLES Final Result Performing Organization Address [facility] Co de Phone Number [facility] [address] [place] [address]. [address] * (ABNORMAL) POC Glucose (10/26/2024 5:14 AM EDT) POC Glucose, Arterial 183(H) 70 - 100 mg/dL 10/26/2024 5:31 AM EDT [facility] Blood, Arterial 10/26/2024 5 :14 AM EDT 10/26/2024 5:31 AM EDT us Semaj Mcnair III, MD POINT OF CARE TEST ORDERABLES Final Result [facility] [address]. [address] * (ABNORMAL) POC Ionized Calcium (10/26/2024 5:14 AM EDT) POC Ionized Calcium 5.50(H) 4.50 - 5.30 mg/dL 10/26/2024 5:31 AM EDT [facility] Blood, Arterial 10/26/2024 5 :14 AM EDT 10/26/2024 5:31 AM EDT us Semaj Mcnair III, MD POINT OF CARE TEST ORDERABLES Final Result [facility] [address] * (ABNORMAL) POC Potassium (10/26/2024 5:14 AM EDT) POC Potassium 2.8(LL) 3.5 - 5.3 mmol/L 10/26/2024 5:31 AM EDT [facility] Blood, Arterial 10/26/2024 5 :14 AM EDT 10/26/2024 5:31 AM EDT Semaj Mcnair III, MD POINT OF CARE TEST ORDERABLES Final Result Performing Organization Address [facility] Co de Phone Number [facility] [address]. [address] * POC Sodium (10/26/2024 5:14 AM EDT) POC Sodium 138 136 - 146 mmol/L 10/26/2024 5:31 AM EDT [facility] Blood, Arterial 10/26/2024 5 :14 AM EDT 10/26/2024 5:31 AM EDT us Semaj Mcnair III, MD POINT OF CARE TEST ORDERABLES Final Result Performing Organization Address City/[facility]/ZIP Co de Phone Number [facility] [address] [facility]. [address] * POC TCO2 (10/26/2024 5:14 AM EDT) POC TCO2, Arterial 23 23 - 27 mmol/L 10/26/2024 5:31 AM EDT [facility] Blood, Arterial 10/26/2024 5 :14 AM EDT 10/26/2024 5:31 AM EDT us Semaj Mcnair III, MD POINT OF CARE TEST ORDERABLES Final Result Performing Organization Address City/[facility]/ZIP Co de Phone Number [facility] [address] * (ABNORMAL) POC O2 SAT (10/26/2024 5:14 AM EDT) POC O2 Saturation, Arterial 99(H) 95 - 98 % 10/26/2024 5:31 AM EDT [facility] Blood, Arterial 10/26/2024 5 :14 AM EDT 10/26/2024 5:31 AM EDT us Semaj Mcnair III, MD POINT OF CARE TEST ORDERABLES Final Result Performing Organization Address [facility] Co de Phone Number [facility] [address] [facility]. [address] * (ABNORMAL) POC Base Excess (10/26/2024 5:14 AM EDT) POC Base Excess, Arterial -5(L) -2 - 3 mmol/L 10/26/2024 5:31 AM EDT [facility] Blood, Arterial 10/26/2024 5 :14 AM EDT 10/26/2024 5:31 AM EDT us Semaj Mcnair III, MD POINT OF CARE TEST ORDERABLES Final Result Performing Organization Address City/[facility] Co de Phone Number [facility] [address] [facility]. [address] * POC HCO3 (10/26/2024 5:14 AM EDT) POC HCO3, Arterial 22 22 - 26 mmol/L 10/26/2024 5:31 AM EDT [facility] Blood, Arterial 10/26/2024 5 :14 AM EDT 10/26/2024 5:31 AM EDT us Semaj Mcnair III, MD POINT OF CARE TEST ORDERABLES Final Result [facility] [address] * (ABNORMAL) POC PO2 (10/26/2024 5:14 AM EDT) POC pO2, Arterial 133(H) 80 - 100 mm Hg 10/26/2024 5:31 AM EDT [facility] Blood, Arterial 10/26/2024 5 :14 AM EDT 10/26/2024 5:31 AM EDT us Semaj Mcnair III, MD POINT OF CARE TEST ORDERABLES Final Result Performing Organization Address City/[facility]/ZIP Co de Phone Number [facility] [address] * POC PCO2 (10/26/2024 5:14 AM EDT) POC pCO2, Arterial 45 35 - 45 mm Hg 10/26/2024 5:31 AM EDT [facility] Blood, Arterial 10/26/2024 5 :14 AM EDT 10/26/2024 5:31 AM EDT us Semaj Mcnair III, MD POINT OF CARE TEST ORDERABLES Final Result Performing Organization Address City/[facility]/ZIP Co de Phone Number [facility] [address] * (ABNORMAL) POC pH (10/26/2024 5:14 AM EDT) POC pH, Arterial 7.29(L) 7.35 - 7.45 10/26/2024 5:31 AM EDT [facility] Blood, Arterial 10/26/2024 5 :14 AM EDT 10/26/2024 5:31 AM EDT us Semaj Mcnair III, MD POINT OF CARE TEST ORDERABLES Final Result [facility] [address] * Transfuse Cryoprecipitate (10/26/2024 4:37 AM [...] AM EDT 10/27/2024 6:51 AM EDT Result [facility] Semaj Mcnair III, MD POINT OF CARE TEST ORDERABLES Final Result [facility] [address] [facility]. [address] * POC Sample Type (10/26/2024 4:24 AM EDT) POC Sample Type Arterial 10/26/2024 5:09 AM EDT [facility] Blood, Arterial 10/26/2024 4 :24 AM EDT 10/26/2024 5:09 AM EDT Result [facility] Seamj Mcnair III, MD POINT OF CARE TEST ORDERABLES Final Result [facility] [address] * POC Anion Gap (10/26/2024 4:24 AM EDT) POC Anion Gap, Arterial 14 3 - 16 mmol/L 10/26/2024 5:09 AM EDT [facility] Blood, Arterial 10/26/2024 4 :24 AM EDT 10/26/2024 5:09 AM EDT us Semaj Mcnair III, MD POINT OF CARE TEST ORDERABLES Final Result [facility] [address] [facility]. [address] * POC Chloride (10/26/2024 4:24 AM EDT) [facility] POC Chloride 103 98 - 110 mmol/L 10/26/2024 5:09 AM EDT [facility] Blood, Arterial 10/26/2024 4 :24 AM EDT 10/26/2024 5:09 AM EDT us Semaj Mcnair III, MD POINT OF CARE TEST ORDERABLES Final Result Performing Organization Address City/[facility] Co de Phone Number [facility] [address] [facility]. [address] * (ABNORMAL) POC Hemoglobin (10/26/2024 4:24 AM EDT) [facility] POC Hemoglobin 10.3(L) 14.0 - 18.0 g/dL 10/26/2024 5:09 AM EDT [facility] Blood, Arterial 10/26/2024 4 :24 AM EDT 10/26/2024 5:09 AM EDT us Semaj Mcnair III, MD POINT OF CARE TEST ORDERABLES Final Result Performing Organization Address City/[facility]/ZIP Co de Phone Number [facility] [address] [facility]. [address] * (ABNORMAL) POC hematocrit (10/26/2024 4:24 AM EDT) POC Hematocrit 30.0(L) 40 - 52 % 10/26/2024 5:09 AM EDT [facility] Blood, Arterial 10/26/2024 4 :24 AM EDT 10/26/2024 5:09 AM EDT us Semaj Mcnair III, MD POINT OF CARE TEST ORDERABLES Final Result [facility] [address] [place] [address]. [address] * (ABNORMAL) POC Lactate (10/26/2024 4:24 AM EDT) Pathologist [facility] POC Lactate 2.43(H) 0.50 - 2.20 mmol/L 10/26/2024 5:09 AM EDT [facility] Blood, Arterial 10/26/2024 4 :24 AM EDT 10/26/2024 5:09 AM EDT us Semaj Mcnair III, MD POINT OF CARE TEST ORDERABLES Final Result Performing Organization Address City/[facility] Co de Phone Number [facility] [address] [place] [address]. [address] * (ABNORMAL) POC Glucose (10/26/2024 4:24 AM EDT) Pathologist [facility] POC Glucose, Arterial 185(H) 70 - 100 mg/dL 10/26/2024 5:09 AM EDT [facility] Blood, Arterial 10/26/2024 4 :24 AM EDT 10/26/2024 5:09 AM EDT us Semaj Mcnair III, MD POINT OF CARE TEST ORDERABLES Final Result Performing Organization Address City/[facility] Co de Phone Number [facility] [address] [facility] [facility] [address] * POC Ionized Calcium (10/26/2024 4:24 AM EDT) POC Ionized Calcium 5.20 4.50 - 5.30 mg/dL 10/26/2024 5:09 AM EDT [facility] Blood, Arterial 10/26/2024 4 :24 AM EDT 10/26/2024 5:09 AM EDT us Semaj Mcnair III, MD POINT OF CARE TEST ORDERABLES Final Result Performing Organization Address City/[facility]/ZIP Co de Phone Number [facility] [address] [place] [address]. [address] * (ABNORMAL) POC Potassium (10/26/2024 4:24 AM EDT) [facility] POC Potassium 2.8(LL) 3.5 - 5.3 mmol/L 10/26/2024 5:09 AM EDT [facility] Blood, Arterial 10/26/2024 4 :24 AM EDT 10/26/2024 5:09 AM EDT us Semaj Mcnair III, MD POINT OF CARE TEST ORDERABLES Final Result Performing Organization Address City/[facility] Co de Phone Number [address] * POC Sodium (10/26/2024 4:24 AM EDT) [facility] POC Sodium 139 136 - 146 mmol/L 10/26/2024 5:09 AM EDT [facility] Blood, Arterial 10/26/2024 4 :24 AM EDT 10/26/2024 5:09 AM EDT us Semaj Mcnair III, MD POINT OF CARE TEST ORDERABLES Final Result Performing Organization Address City/[facility] Co de Phone Number [address] * POC TCO2 (10/26/2024 4:24 AM EDT) Pathologist [facility] POC TCO2, Arterial 23 23 - 27 mmol/L 10/26/2024 5:09 AM EDT [facility] Blood, Arterial 10/26/2024 4 :24 AM EDT 10/26/2024 5:09 AM EDT us Semaj Mcnair III, MD POINT OF CARE TEST ORDERABLES Final Result [facility] [address] * POC O2 SAT (10/26/2024 4:24 AM EDT) POC O2 Saturation, Arterial 96 95 - 98 % 10/26/2024 5:09 AM EDT [facility] Blood, Arterial 10/26/2024 4 :24 AM EDT 10/26/2024 5:09 AM EDT Semaj Mcnair III, MD POINT OF CARE TEST ORDERABLES Final Result Performing Organization Address City/[facility]/ZIP Co de Phone Number [facility] [address] * (ABNORMAL) POC Base Excess (10/26/2024 4:24 AM EDT) POC Base Excess, Arterial -5(L) -2 - 3 mmol/L 10/26/2024 5:09 AM EDT [facility] Blood, Arterial 10/26/2024 4 :24 AM EDT 10/26/2024 5:09 AM EDT Semaj Mcnair III, MD POINT OF CARE TEST ORDERABLES Final Result [facility] [address] * POC HCO3 (10/26/2024 4:24 AM EDT) POC HCO3, Arterial 22 22 - 26 mmol/L 10/26/2024 5:09 AM EDT [facility] Blood, Arterial 10/26/2024 4 :24 AM EDT 10/26/2024 5:09 AM EDT us Semaj Mcnair III, MD POINT OF CARE TEST ORDERABLES Final Result Performing Organization Address City/[facility]/ZIP Co de Phone Number [facility] [address] * POC PO2 (10/26/2024 4:24 AM EDT) POC pO2, Arterial 93 80 - 100 mm Hg 10/26/2024 5:09 AM EDT [facility] Blood, Arterial 10/26/2024 4 :24 AM EDT 10/26/2024 5:09 AM EDT us Semaj Mcnair III, MD POINT OF CARE TEST ORDERABLES Final Result Performing Organization Address [facility] Co de Phone Number [facility] [address] [facility]. [address] * POC PCO2 (10/26/2024 4:24 AM EDT) POC pCO2, Arterial 44 35 - 45 mm Hg 10/26/2024 5:09 AM EDT [facility] Blood, Arterial 10/26/2024 4 :24 AM EDT 10/26/2024 5:09 AM EDT us Semaj Mcnair III, MD POINT OF CARE TEST ORDERABLES Final Result Performing Organization Address City/[facility] Co de Phone Number [facility] [address] [facility]. [address] * (ABNORMAL) POC pH (10/26/2024 4:24 AM EDT) POC pH, Arterial 7.30(L) 7.35 - 7.45 10/26/2024 5:09 AM EDT [facility] Blood, Arterial 10/26/2024 4 :24 AM EDT 10/26/2024 5:09 AM EDT us Semaj Mcnair III, MD POINT OF CARE TEST ORDERABLES Final Result Performing Organization Address [facility] Co de Phone Number [facility] [address] [facility]. [address] * Transfuse Platelets (10/26/2024 4:14 AM EDT) Result [facility] Ben Blake MD NURSING TREATMENT [...] TEST ORDERABLES Final Result Performing Organization Address [facility] Co de Phone Number [facility] [address] [facility]. [address] * POC Sample Type (10/26/2024 3:31 AM EDT) POC Sample Type Arterial 10/26/2024 4:11 AM EDT [facility] Blood, Arterial 10/26/2024 3 :31 AM EDT 10/26/2024 4:11 AM EDT us Semaj Mcnair III, MD POINT OF CARE TEST ORDERABLES Final Result Performing Organization Address [facility]/ZIP Co de Phone Number [facility] [address] [facility]. [address] * POC Anion Gap (10/26/2024 3:31 AM EDT) POC Anion Gap, Arterial 15 3 - 16 mmol/L 10/26/2024 4:11 AM EDT [facility] Blood, Arterial 10/26/2024 3 :31 AM EDT 10/26/2024 4:11 AM EDT us Semaj Mcnair III, MD POINT OF CARE TEST ORDERABLES Final Result Performing Organization Address [facility] Co de Phone Number [facility] [address] [facility]. [address] * POC Chloride (10/26/2024 3:31 AM EDT) POC Chloride 105 98 - 110 mmol/L 10/26/2024 4:11 AM EDT [facility] Blood, Arterial 10/26/2024 3 :31 AM EDT 10/26/2024 4:11 AM EDT us Semaj Mcnair III, MD POINT OF CARE TEST ORDERABLES Final Result Performing Organization Address [facility] Co de Phone Number [facility]. [address] * (ABNORMAL) POC Hemoglobin (10/26/2024 3:31 AM EDT) POC Hemoglobin 9.7(L) 14.0 - 18.0 g/dL 10/26/2024 4:11 AM EDT [facility] Blood, Arterial 10/26/2024 3 :31 AM EDT 10/26/2024 4:11 AM EDT us Semaj Mcnair III, MD POINT OF CARE TEST ORDERABLES Final Result Performing Organization Address City/[facility] Co de Phone Number [facility] [address] [facility]. [address] * (ABNORMAL) POC hematocrit (10/26/2024 3:31 AM EDT) POC Hematocrit 29.0(L) 40 - 52 % 10/26/2024 4:11 AM EDT [facility] Blood, Arterial 10/26/2024 3 :31 AM EDT 10/26/2024 4:11 AM EDT us Semaj Mcnair III, MD POINT OF CARE TEST ORDERABLES Final Result Performing Organization Address [facility] de Phone Number [facility] [address] [facility]. [address] * (ABNORMAL) POC Lactate (10/26/2024 3:31 AM EDT) POC Lactate 3.54(H) 0.50 - 2.20 mmol/L 10/26/2024 4:11 AM EDT [facility] Blood, Arterial 10/26/2024 3 :31 AM EDT 10/26/2024 4:11 AM EDT us Semaj Mcnair III, MD POINT OF CARE TEST ORDERABLES Final Result Performing Organization Address [facility] de Phone Number [facility] [address] [facility]. [address] * (ABNORMAL) POC Glucose (10/26/2024 3:31 AM EDT) POC Glucose, Arterial 153(H) 70 - 100 mg/dL 10/26/2024 4:11 AM EDT [facility] Blood, Arterial 10/26/2024 3 :31 AM EDT 10/26/2024 4:11 AM EDT us Semaj Mcnair III, MD POINT OF CARE TEST ORDERABLES Final Result Performing Organization Address [facility]/ZIP Co de Phone Number [facility] [address] * POC Ionized Calcium (10/26/2024 3:31 AM EDT) POC Ionized Calcium 5.10 4.50 - 5.30 mg/dL 10/26/2024 4:11 AM EDT [facility] Blood, Arterial 10/26/2024 3 :31 AM EDT 10/26/2024 4:11 AM EDT us Semaj Mcnair III, MD POINT OF CARE TEST ORDERABLES Final Result Performing Organization Address [facility] Co de Phone Number [facility] [address] * (ABNORMAL) POC Potassium (10/26/2024 3:31 AM EDT) POC Potassium 2.6(LL) 3.5 - 5.3 mmol/L 10/26/2024 4:11 AM EDT [facility] Blood, Arterial 10/26/2024 3 :31 AM EDT 10/26/2024 4:11 AM EDT us Semaj Mcnair III, MD POINT OF CARE TEST ORDERABLES Final Result Performing Organization Address [facility] Co de Phone Number [facility] [address] * POC Sodium (10/26/2024 3:31 AM EDT) POC Sodium 138 136 - 146 mmol/L 10/26/2024 4:11 AM EDT [facility] Blood, Arterial 10/26/2024 3 :31 AM EDT 10/26/2024 4:11 AM EDT us Semaj Mcnair III, MD POINT OF CARE TEST ORDERABLES Final Result Performing Organization Address City/[facility]/ZIP Co de Phone Number [facility] [address] * (ABNORMAL) POC TCO2 (10/26/2024 3:31 AM EDT) POC TCO2, Arterial 19(L) 23 - 27 mmol/L 10/26/2024 4:11 AM EDT [facility] Blood, Arterial 10/26/2024 3 :31 AM EDT 10/26/2024 4:11 AM EDT Semaj Mcnair III, MD POINT OF CARE TEST ORDERABLES Final Result [facility] [address] [facility]. [address] * POC O2 SAT (10/26/2024 3:31 AM EDT) POC O2 Saturation, Arterial 97 95 - 98 % 10/26/2024 4:11 AM EDT [facility] Blood, Arterial 10/26/2024 3 :31 AM EDT 10/26/2024 4:11 AM EDT us Semaj Mcnair III, MD POINT OF CARE TEST ORDERABLES Final Result [facility] [address] [facility]. [address] * (ABNORMAL) POC Base Excess (10/26/2024 3:31 AM EDT) POC Base Excess, Arterial -9(L) -2 - 3 mmol/L 10/26/2024 4:11 AM EDT [facility] Blood, Arterial 10/26/2024 3 :31 AM EDT 10/26/2024 4:11 AM EDT us Semaj Mcnair III, MD POINT OF CARE TEST ORDERABLES Final Result [facility] [address] [facility]. [address] * (ABNORMAL) POC HCO3 (10/26/2024 3:31 AM EDT) POC HCO3, Arterial 18(L) 22 - 26 mmol/L 10/26/2024 4:11 AM EDT [facility] Blood, Arterial 10/26/2024 3 :31 AM EDT 10/26/2024 4:11 AM EDT Semaj Mcnair III, MD POINT OF CARE TEST ORDERABLES Final Result [facility] [address] * (ABNORMAL) POC PO2 (10/26/2024 3:31 AM EDT) POC pO2, Arterial 104(H) 80 - 100 mm Hg 10/26/2024 4:11 AM EDT [facility] Blood, Arterial 10/26/2024 3 :31 AM EDT 10/26/2024 4:11 AM EDT us Semaj Mcnair III, MD POINT OF CARE TEST ORDERABLES Final Result Performing Organization Address [facility]/ZIP Co de Phone Number [facility] [address] * POC PCO2 (10/26/2024 3:31 AM EDT) POC pCO2, Arterial 42 35 - 45 mm Hg 10/26/2024 4:11 AM EDT [facility] Blood, Arterial 10/26/2024 3 :31 AM EDT 10/26/2024 4:11 AM EDT us Semaj Mcnair III, MD POINT OF CARE TEST ORDERABLES Final Result Performing Organization Address City/[facility]/ZIP Co de Phone Number [facility] [address] * (ABNORMAL) POC pH (10/26/2024 3:31 AM EDT) [facility] POC pH, Arterial 7.24(L) 7.35 - 7.45 10/26/2024 4:11 AM EDT [facility] Blood, Arterial 10/26/2024 3 :31 AM EDT 10/26/2024 4:11 AM EDT us Semaj Mcnair III, MD POINT OF CARE TEST ORDERABLES Final Result Performing Organization Address [facility]/ZIP Co de Phone Number [facility] [address] * (ABNORMAL) TEG-Global With Lysis (Baseline TEG with LY30, Will NOT Show Heparin Effect) (53:31 AM EDT) [facility] Citrated Kaolin Reaction Time (TEGLYSIS) 6.8 4.6 - 9.1 minutes 10/26/2024 5:02 AM EDT [facility] Citrated Rapid Teg Maximum Amplitude (TEGLYSIS) <40.0(L) 52.0 - 70.0 mm 10/26/2024 5:02 AM EDT [facility] Citrated Functional Fibrinogen Maximum Amplitude (TEGLYSIS) <4.0(L) 15.0 - 32.0 mm 10/26/2024 5:02 AM EDT [facility] Citrated Kaolin Percent Lysis (TEGLYSIS) 1.4 0.0 - 2.6 % 10/26/2024 5:02 AM EDT [facility] Whole Blood (Citrate) 10/26/2024 3:31 AM EDT 10/26/2024 3:40 AM EDT us Eber Quinones MD LAB BLOOD ORDERABLES Fin al Result [facility] [address] [facility]. [address] * (ABNORMAL) CBC (10/26/2024 3:31 AM EDT) [facility] WBC 9.5 3.8 - 10.8 10E3/uL 10/26/2024 3:48 AM EDT [facility] RBC 3.68(L) 4.20 - 5.80 10E6/uL 10/26/2024 3:48 AM EDT [facility] Hemoglobin 11.5(L) 13.2 - 17.1 g/dL 10/26/2024 3:48 AM EDT [facility] Hematocrit 33.0(L) 38.5 - 50.0 % 10/26/2024 3:48 AM EDT [facility] MCV 89.6 80.0 - 100.0 fL 10/26/2024 3:48 AM EDT [facility] MCH 31.1 27.0 - 33.0 pg 10/26/2024 3:48 AM EDT [facility] MCHC 34.8 32.0 - 36.0 g/dL 10/26/2024 3:48 AM EDT [facility] RDW 19.3(H) 11.0 - 15.0 % 10/26/2024 3:48 AM EDT [facility] Platelets 67(L) 140 - 400 10E3/uL 10/26/2024 3:48 AM EDT [facility] MPV 7.9 7.5 - 11.5 fL 10/26/2024 3:48 AM EDT [facility] Whole Blood 10/26/2024 3:31 AM EDT 10/26/2024 3:40 AM EDT us Eber Quinones MD LAB BLOOD ORDERABLES Fin al Result Performing Organization Address City/State/[facility] Co de Phone Number [facility] [address] * (ABNORMAL) Protime-INR (10/26/2024 3:31 AM EDT) Protime 27.0(H) 12.1 - 15.1 seconds 10/26/2024 3:51 AM EDT [facility] INR 2.4(H) 0.9 - 1.1 10/26/2024 3:51 AM EDT [facility] Comment: RECOMMENDED THERAPEUTIC RANGES USING INR : Stable oral anticoagulant therapy: 2.0 - 3.0 Mechanical prosthetic heart valve: 2.5 - 3.5 Recurrent acute myocardial infarction: 2.5 - 3.5 Plasma 10/26/2024 3:31 AM EDT 10/26/2024 3:40 AM EDT Result [facility] Eber Quinones MD LAB BLOOD ORDERABLES Fin al Result Performing Organization Address [facility] Co de Phone Number [facility] [address] [facility]. [address] * (ABNORMAL) Fibrinogen (10/26/2024 3:31 AM EDT) [facility] Fibrinogen 104(L) 218 - 406 mg/dL 10/26/2024 3:56 AM EDT [facility] Plasma 10/26/2024 3:31 AM EDT 10/26/2024 3:40 AM EDT Result [facility] Eber Quinones MD LAB BLOOD ORDERABLES Fin al Result Performing Organization Address [facility] Co de Phone Number [facility] [address] [facility]. [address] * Transfuse Fresh Frozen Plasma (10/26/2024 [...] (ABNORMAL) POC INR (10/26/2024 1:43 AM EDT) [facility] Prothrombin Time INR, POC 1.9(H) 0.8 - [...] AM EDT 10/27/2024 6:51 AM EDT Result [facility] Semaj Mcnair III, MD POINT OF CARE TEST ORDERABLES Final Result [facility] [address] [place] [address], [facility] * Transfuse Fresh Frozen Plasma (10/26/2024 1:41 AM EDT) us Ben Blake MD NURSING TREATMENT ORDERABLES - BLOOD ADMIN Final Result * Transfuse RBC (10/26/2024 1:40 AM EDT) Ben Blake MD NURSING TREATMENT ORDERABLES - BLOOD ADMIN Final Result * POC Sample Type (10/26/2024 1:40 AM EDT) POC Sample Type Arterial 10/26/2024 2:32 AM EDT [facility] Blood, Arterial 10/26/2024 1 :40 AM EDT 10/26/2024 2:32 AM EDT Semaj Mcnair III, MD POINT OF CARE TEST ORDERABLES Final Result Performing Organization Address [facility] Co de Phone Number [facility] [address] [place] [address]. [address] * POC Anion Gap (10/26/2024 1:40 AM EDT) POC Anion Gap, Arterial 13 3 - 16 mmol/L 10/26/2024 2:32 AM EDT [facility] Blood, Arterial 10/26/2024 1 :40 AM EDT 10/26/2024 2:32 AM EDT Semaj Mcnair III, MD POINT OF CARE TEST ORDERABLES Final Result Performing Organization Address [facility] Co de Phone Number [facility] [address] [place] [address]. [address] * POC Chloride (10/26/2024 1:40 AM EDT) POC Chloride 104 98 - 110 mmol/L 10/26/2024 2:32 AM EDT [facility] Blood, Arterial 10/26/2024 1 :40 AM EDT 10/26/2024 2:32 AM EDT us Semaj Mcnair III, MD POINT OF CARE TEST ORDERABLES Final Result Performing Organization Address City/[facility]/ZIP Co de Phone Number [facility] [address] * (ABNORMAL) POC Hemoglobin (10/26/2024 1:40 AM EDT) POC Hemoglobin 7.4(L) 14.0 - 18.0 g/dL 10/26/2024 2:32 AM EDT [facility] Blood, Arterial 10/26/2024 1 :40 AM EDT 10/26/2024 2:32 AM EDT us Semaj Mcnair III, MD POINT OF CARE TEST ORDERABLES Final Result Performing Organization Address City/[facility]/ZIP Co de Phone Number [facility] [address] * (ABNORMAL) POC hematocrit (10/26/2024 1:40 AM EDT) POC Hematocrit 22.0(L) 40 - 52 % 10/26/2024 2:32 AM EDT [facility] Blood, Arterial 10/26/2024 1 :40 AM EDT 10/26/2024 2:32 AM EDT us Semaj Mcnair III, MD POINT OF CARE TEST ORDERABLES Final Result Performing Organization Address City/[facility]/ZIP Co de Phone Number [facility] [address] * (ABNORMAL) POC Lactate (10/26/2024 1:40 AM EDT) POC Lactate 2.30(H) 0.50 - 2.20 mmol/L 10/26/2024 2:32 AM EDT [facility] Blood, Arterial 10/26/2024 1 :40 AM EDT 10/26/2024 2:32 AM EDT us Semaj Mcnair III, MD POINT OF CARE TEST ORDERABLES Final Result [facility] [address] * (ABNORMAL) POC Glucose (10/26/2024 1:40 AM EDT) POC Glucose, Arterial 116(H) 70 - 100 mg/dL 10/26/2024 2:32 AM EDT [facility] Blood, Arterial 10/26/2024 1 :40 AM EDT 10/26/2024 2:32 AM EDT us Semaj Mcnair III, MD POINT OF CARE TEST ORDERABLES Final Result [facility] [address] [facility]. [address] * (ABNORMAL) POC Ionized Calcium (10/26/2024 1:40 AM EDT) POC Ionized Calcium 4.10(L) 4.50 - 5.30 mg/dL 10/26/2024 2:32 AM EDT [facility] Blood, Arterial 10/26/2024 1 :40 AM EDT 10/26/2024 2:32 AM EDT us Semaj Mcnair III, MD POINT OF CARE TEST ORDERABLES Final Result Performing Organization Address City/[facility]/ZIP Co de Phone Number [facility] [address] [facility]. [address] * (ABNORMAL) POC Potassium (10/26/2024 1:40 AM EDT) POC Potassium 2.6(LL) 3.5 - 5.3 mmol/L 10/26/2024 2:32 AM EDT [facility] Blood, Arterial 10/26/2024 1 :40 AM EDT 10/26/2024 2:32 AM EDT us Semaj Mcnair III, MD POINT OF CARE TEST ORDERABLES Final Result [facility] [address] * (ABNORMAL) POC Sodium (10/26/2024 1:40 AM EDT) POC Sodium 135(L) 136 - 146 mmol/L 10/26/2024 2:32 AM EDT [facility] Blood, Arterial 10/26/2024 1 :40 AM EDT 10/26/2024 2:32 AM EDT Semaj Mcnair III, MD POINT OF CARE TEST ORDERABLES Final Result [facility] [address] * (ABNORMAL) POC TCO2 (10/26/2024 1:40 AM EDT) POC TCO2, Arterial 19(L) 23 - 27 mmol/L 10/26/2024 2:32 AM EDT [facility] Blood, Arterial 10/26/2024 1 :40 AM EDT 10/26/2024 2:32 AM EDT us Semaj Mcnair III, MD POINT OF CARE TEST ORDERABLES Final Result Performing Organization Address City/[facility]/ZIP Co de Phone Number [facility] [address] * (ABNORMAL) POC O2 SAT (10/26/2024 1:40 AM EDT) POC O2 Saturation, Arterial 99(H) 95 - 98 % 10/26/2024 2:32 AM EDT [facility] Blood, Arterial 10/26/2024 1 :40 AM EDT 10/26/2024 2:32 AM EDT us Semaj Mcnair III, MD POINT OF CARE TEST ORDERABLES Final Result [facility] [address] * (ABNORMAL) POC Base Excess (10/26/2024 1:40 AM EDT) POC Base Excess, Arterial -7(L) -2 - 3 mmol/L 10/26/2024 2:32 AM EDT [facility] Blood, Arterial 10/26/2024 1 :40 AM EDT 10/26/2024 2:32 AM EDT Semaj Mcnair III, MD POINT OF CARE TEST ORDERABLES Final Result [facility] [address] * (ABNORMAL) POC HCO3 (10/26/2024 1:40 AM EDT) POC HCO3, Arterial 18(L) 22 - 26 mmol/L 10/26/2024 2:32 AM EDT [facility] Blood, Arterial 10/26/2024 1 :40 AM EDT 10/26/2024 2:32 AM EDT us Semaj Mcnair III, MD POINT OF CARE TEST ORDERABLES Final Result [facility] [address] * (ABNORMAL) POC PO2 (10/26/2024 1:40 AM EDT) POC pO2, Arterial 145(H) 80 - 100 mm Hg 10/26/2024 2:32 AM EDT [facility] Blood, Arterial 10/26/2024 1 :40 AM EDT 10/26/2024 2:32 AM EDT us Semaj Mcnair III, MD POINT OF CARE TEST ORDERABLES Final Result [facility] [address] * (ABNORMAL) POC PCO2 (10/26/2024 1:40 AM EDT) POC pCO2, Arterial 33(L) 35 - 45 mm Hg 10/26/2024 2:32 AM EDT [facility] Blood, Arterial 10/26/2024 1 :40 AM EDT 10/26/2024 2:32 AM EDT Semaj Mcnair III, MD POINT OF CARE TEST ORDERABLES Final Result Performing Organization Address City/[facility]/ZIP Co de Phone Number [facility] [address] * POC pH (10/26/2024 1:40 AM EDT) POC pH, Arterial 7.35 7.35 - 7.45 10/26/2024 2:32 AM EDT [facility] Blood, Arterial 10/26/2024 1 :40 AM EDT 10/26/2024 2:32 AM EDT Semaj Mcnair III, MD POINT OF CARE TEST ORDERABLES Final Result Performing Organization Address City/[facility]/ZIP Co de Phone Number [facility] [address] * Transfuse Fresh Frozen Plasma (10/26/2024 1:20 AM EDT) Ben Blake MD NURSING TREATMENT ORDERABLES - BLOOD ADMIN Final Result * Transfuse RBC (10/26/2024 12:56 AM EDT) Ben Blake MD NURSING TREATMENT ORDERABLES - BLOOD ADMIN Final Result * (ABNORMAL) POC INR (10/26/2024 12:41 AM EDT) Prothrombin Time INR, POC 2.0(H) 0.8 - 1.4 10/27/2024 6:51 AM EDT [facility] Comment: Test results [...] TEST ORDERABLES Final Result Performing Organization Address City/[facility] Co de Phone Number [facility] [address] [place] [address]. [address] * POC Sample Type (10/26/2024 12:39 AM EDT) POC Sample Type Arterial 10/26/2024 1:38 AM EDT [facility] Blood, Arterial 10/26/2024 1 2:39 AM EDT 10/26/2024 1:38 AM EDT Semaj Mcnair III, MD POINT OF CARE TEST ORDERABLES Final Result Performing Organization Address [facility] Co de Phone Number [facility] [address] [place] [address]. [address] * POC Anion Gap (10/26/2024 12:39 AM EDT) POC Anion Gap, Arterial 13 3 - 16 mmol/L 10/26/2024 1:38 AM EDT [facility] Blood, Arterial 10/26/2024 1 2:39 AM EDT 10/26/2024 1:38 AM EDT us Semaj Mcnair III, MD POINT OF CARE TEST ORDERABLES Final Result Performing Organization Address City/[facility] Co de Phone Number [facility] [address] [place] [address]. [address] * POC Chloride (10/26/2024 12:39 AM EDT) POC Chloride 103 98 - 110 mmol/L 10/26/2024 1:38 AM EDT [facility] Blood, Arterial 10/26/2024 1 2:39 AM EDT 10/26/2024 1:38 AM EDT us Semaj Mcnair III, MD POINT OF CARE TEST ORDERABLES Final Result [facility] [address] [facility]. [address] * (ABNORMAL) POC Hemoglobin (10/26/2024 12:39 AM EDT) POC Hemoglobin 7.9(L) 14.0 - 18.0 g/dL 10/26/2024 1:38 AM EDT [facility] Blood, Arterial 10/26/2024 1 2:39 AM EDT 10/26/2024 1:38 AM EDT us Semaj Mcnair III, MD POINT OF CARE TEST ORDERABLES Final Result Performing Organization Address [facility] Co de Phone Number [facility] [address] [facility]. [address] * (ABNORMAL) POC hematocrit (10/26/2024 12:39 AM EDT) POC Hematocrit 23.0(L) 40 - 52 % 10/26/2024 1:38 AM EDT [facility] Blood, Arterial 10/26/2024 1 2:39 AM EDT 10/26/2024 1:38 AM EDT us Semaj Mcnair III, MD POINT OF CARE TEST ORDERABLES Final Result Performing Organization Address City/[facility] Co de Phone Number [facility] [address] [facility]. [address] * POC Lactate (10/26/2024 12:39 AM EDT) POC Lactate 1.39 0.50 - 2.20 mmol/L 10/26/2024 1:38 AM EDT [facility] Blood, Arterial 10/26/2024 1 2:39 AM EDT 10/26/2024 1:38 AM EDT us Semaj Mcnair III, MD POINT OF CARE TEST ORDERABLES Final Result Performing Organization Address City/[facility]/ZIP Co de Phone Number [facility] [address] * (ABNORMAL) POC Glucose (10/26/2024 12:39 AM EDT) POC Glucose, Arterial 116(H) 70 - 100 mg/dL 10/26/2024 1:38 AM EDT [facility] Blood, Arterial 10/26/2024 1 2:39 AM EDT 10/26/2024 1:38 AM EDT us Semaj Mcnair III, MD POINT OF CARE TEST ORDERABLES Final Result Performing Organization Address [facility] Co de Phone Number [facility] [address] [facility]. [address] * (ABNORMAL) POC Ionized Calcium (10/26/2024 12:39 AM EDT) POC Ionized Calcium 4.30(L) 4.50 - 5.30 mg/dL 10/26/2024 1:38 AM EDT [facility] Blood, Arterial 10/26/2024 1 2:39 AM EDT 10/26/2024 1:38 AM EDT us Semaj Mcnair III, MD POINT OF CARE TEST ORDERABLES Final Result Performing Organization Address City/[facility] Co de Phone Number [facility] [address] [facility]. [address] * (ABNORMAL) POC Potassium (10/26/2024 12:39 AM EDT) POC Potassium 2.4(LL) 3.5 - 5.3 mmol/L 10/26/2024 1:38 AM EDT [facility] Blood, Arterial 10/26/2024 1 2:39 AM EDT 10/26/2024 1:38 AM EDT us Semaj Mcnair III, MD POINT OF CARE TEST ORDERABLES Final Result [facility] [address] [facility]. [address] * POC Sodium (10/26/2024 12:39 AM EDT) POC Sodium 136 136 - 146 mmol/L 10/26/2024 1:38 AM EDT [facility] Blood, Arterial 10/26/2024 1 2:39 AM EDT 10/26/2024 1:38 AM EDT us Semaj Mcnair III, MD POINT OF CARE TEST ORDERABLES Final Result Performing Organization Address [facility] Co de Phone Number [facility] [address] [facility]. [address] * (ABNORMAL) POC TCO2 (10/26/2024 12:39 AM EDT) POC TCO2, Arterial 21(L) 23 - 27 mmol/L 10/26/2024 1:38 AM EDT [facility] Blood, Arterial 10/26/2024 1 2:39 AM EDT 10/26/2024 1:38 AM EDT us Semaj Mcnair III, MD POINT OF CARE TEST ORDERABLES Final Result Performing Organization Address City/[facility]/ZIP Co de Phone Number [facility] [address] [facility]. [address] * POC O2 SAT (10/26/2024 12:39 AM EDT) POC O2 Saturation, Arterial 98 95 - 98 % 10/26/2024 1:38 AM EDT [facility] Blood, Arterial 10/26/2024 1 2:39 AM EDT 10/26/2024 1:38 AM EDT us Seamj Mcnair III, MD POINT OF CARE TEST ORDERABLES Final Result Performing Organization Address City/[facility]/ZIP Co de Phone Number [facility] [address] [facility]. [address] * (ABNORMAL) POC Base Excess (10/26/2024 12:39 AM EDT) POC Base Excess, Arterial -7(L) -2 - 3 mmol/L 10/26/2024 1:38 AM EDT [facility] Blood, Arterial 10/26/2024 1 2:39 AM EDT 10/26/2024 1:38 AM EDT us Semaj Mcnair III, MD POINT OF CARE TEST ORDERABLES Final Result Performing Organization Address [facility] Co de Phone Number [facility] [address] * (ABNORMAL) POC HCO3 (10/26/2024 12:39 AM EDT) POC HCO3, Arterial 20(L) 22 - 26 mmol/L 10/26/2024 1:38 AM EDT [facility] Blood, Arterial 10/26/2024 1 2:39 AM EDT 10/26/2024 1:38 AM EDT us Semaj Mcnair III, MD POINT OF CARE TEST ORDERABLES Final Result Performing Organization Address City/[facility]/ZIP Co de Phone Number [facility] [address] [facility]. [address] * (ABNORMAL) POC PO2 (10/26/2024 12:39 AM EDT) POC pO2, Arterial 117(H) 80 - 100 mm Hg 10/26/2024 1:38 AM EDT [facility] Blood, Arterial 10/26/2024 1 2:39 AM EDT 10/26/2024 1:38 AM EDT Semaj Mcnair III, MD POINT OF CARE TEST ORDERABLES Final Result Performing Organization Address City/[facility]/ZIP Co de Phone Number [facility] [address] * (ABNORMAL) POC PCO2 (10/26/2024 12:39 AM EDT) POC pCO2, Arterial 46(H) 35 - 45 mm Hg 10/26/2024 1:38 AM EDT [facility] Blood, Arterial 10/26/2024 1 2:39 AM EDT 10/26/2024 1:38 AM EDT Semaj Mcnair III, MD POINT OF CARE TEST ORDERABLES Final Result Performing Organization Address [facility] Co de Phone Number [facility] [address] [facility]. [address] * (ABNORMAL) POC pH (10/26/2024 12:39 AM EDT) POC pH, Arterial 7.24(L) 7.35 - 7.45 10/26/2024 1:38 AM EDT [facility] Blood, Arterial 10/26/2024 1 2:39 AM EDT 10/26/2024 1:38 AM EDT Seamj Mcnair III, MD POINT OF CARE TEST ORDERABLES Final Result Performing Organization Address City/[facility] Co de Phone Number [facility] [address] [facility]. [address] * Transfuse Platelets (10/26/2024 12:37 AM EDT) Result [facility] Ben Blake MD NURSING TREATMENT [...] AM EDT) Gram Stain Result Cytospin Results: [facility] Gram Stain Result Polymorphonuclear Leukocytes Seen; [facility] Gram Stain Result No Organisms Seen; [facility] Culture Result No Growth After 3 Days [facility] Surgical Swab ABDOMEN / Unknown 12:03 AM EDT Comment:2.) Ascites Anaerobhic culture Fungus culture Routine culture plus stain Narrative [facility] - 10/28/2024 9:38 PM EDT 2.) Ascites Anaerobhic culture Fungus culture Routine culture plus stain 2.) Ascites Semaj Mcnair III, MD MICROBIOLOGY - GENE RAL ORDERABLES Final Result [facility] [address] * Surgical Pathology Exam (10/26/2024 12:00 AM EDT) 10/26/2024 10/27/2024 Narrative [facility] - 10/26/2024 12:00 AM EDT CASE: [id number] PATIENT: BLAIR GILBERT Clinical History: Liver - kidney transplant Pre-Operative Diagnosis: Alcoholic cirrhosis of liver Post-Operative Diagnosis: Alcoholic cirrhosis of liver Specimen(s) Submitted: A. false pass liver CPT Code(s): 14938 X 1; 07602 X 5 Additional Information: FINAL DIAGNOSIS: A. 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 - Negative for neoplasm. - Increased hepatocellular iron deposition (3+; Modified Scheuer). Gall bladder: -Intramucosal and submucosal vascular congestion and hemorrhage. - Negative for dysplasia or malignancy. Gross Description: Received in formalin, labeled Blair Gilbert and false pass liver , is a 2338-gram, hepatectomy specimen [...] discrete masses or other lesions are identified. Traveling Secretary sections are submitted in cassettes [id number] as follows: A1: Hilar margins, en face. [...] Pathologist signing this report is located at [facility], [address] [place] [address], [place], [place], [facility], , CLIA ID: [id number] us Semaj Mcnair III, MD PATHOLOGY/CYTOLOGY ORDERABLES [...] 0.8 - 1.4 10/27/2024 6:51 AM EDT [facility] Comment: Test results [...] POINT OF CARE TEST ORDERABLES Final Result [facility] [address] [place] [address] * POC Sample Type (10/25/2024 11:40 PM EDT) POC Sample Type Arterial 10/25/2024 11:57 PM EDT [facility] Blood, Arterial 10/25/2024 1 1:40 PM EDT 10/25/2024 11:57 PM EDT us Semaj Mcnair III, MD POINT OF CARE TEST ORDERABLES Final Result [facility] [address] [facility]. [address] * POC Anion Gap (10/25/2024 11:40 PM EDT) POC Anion Gap, Arterial 13 3 - 16 mmol/L 10/25/2024 11:57 PM EDT [facility] Blood, Arterial 10/25/2024 1 1:40 PM EDT 10/25/2024 11:57 PM EDT us Semaj Mcnair III, MD POINT OF CARE TEST ORDERABLES Final Result Performing Organization Address City/[facility]/ZIP Co de Phone Number [facility] [address] * POC Chloride (10/25/2024 11:40 PM EDT) Pathologist [facility] POC Chloride 102 98 - 110 mmol/L 10/25/2024 11:57 PM EDT [facility] Blood, Arterial 10/25/2024 1 1:40 PM EDT 10/25/2024 11:57 PM EDT us Semaj Mcnair III, MD POINT OF CARE TEST ORDERABLES Final Result [facility] [address] [facility]. [address] * (ABNORMAL) POC Hemoglobin (10/25/2024 11:40 PM EDT) Pathologist [facility] POC Hemoglobin 6.6(L) 14.0 - 18.0 g/dL 10/25/2024 11:57 PM EDT [facility] Blood, Arterial 10/25/2024 1 1:40 PM EDT 10/25/2024 11:57 PM EDT us Semaj Mcnair III, MD POINT OF CARE TEST ORDERABLES Final Result Performing Organization Address City/[facility]/ZIP Co de Phone Number [facility] [address] [facility]. [address] * (ABNORMAL) POC hematocrit (10/25/2024 11:40 PM EDT) POC Hematocrit 19.0(L) 40 - 52 % 10/25/2024 11:57 PM EDT [facility] Blood, Arterial 10/25/2024 1 1:40 PM EDT 10/25/2024 11:57 PM EDT us Semaj Mcnair III, MD POINT OF CARE TEST ORDERABLES Final Result Performing Organization Address [facility]/ZIP Co de Phone Number [facility] [address] [facility]. [address] * POC Lactate (10/25/2024 11:40 PM EDT) Pathologist [facility] POC Lactate 1.36 0.50 - 2.20 mmol/L 10/25/2024 11:57 PM EDT [facility] Blood, Arterial 10/25/2024 1 1:40 PM EDT 10/25/2024 11:57 PM EDT Semaj Mcnair III, MD POINT OF CARE TEST ORDERABLES Final Result [facility] [address] [facility]. [address] * (ABNORMAL) POC Glucose (10/25/2024 11:40 PM EDT) POC Glucose, Arterial 101(H) 70 - 100 mg/dL 10/25/2024 11:57 PM EDT [facility] Blood, Arterial 10/25/2024 1 1:40 PM EDT 10/25/2024 11:57 PM EDT Semaj Mcnair III, MD POINT OF CARE TEST ORDERABLES Final Result Performing Organization Address [facility] Co de Phone Number [facility] [address] * POC Ionized Calcium (10/25/2024 11:40 PM EDT) POC Ionized Calcium 4.50 4.50 - 5.30 mg/dL 10/25/2024 11:57 PM EDT [facility] Blood, Arterial 10/25/2024 1 1:40 PM EDT 10/25/2024 11:57 PM EDT Semaj Mcnair III, MD POINT OF CARE TEST ORDERABLES Final Result Performing Organization Address [facility] Co de Phone Number [facility] [address] [facility]. [address] * (ABNORMAL) POC Potassium (10/25/2024 11:40 PM EDT) Pathologist [facility] POC Potassium 1.9(LL) 3.5 - 5.3 mmol/L 10/25/2024 11:57 PM EDT [facility] Blood, Arterial 10/25/2024 1 1:40 PM EDT 10/25/2024 11:57 PM EDT Semaj Mcnair III, MD POINT OF CARE TEST ORDERABLES Final Result Performing Organization Address [facility] Co de Phone Number [facility] [address] [facility]. [address] * (ABNORMAL) POC Sodium (10/25/2024 11:40 PM EDT) POC Sodium 135(L) 136 - 146 mmol/L 10/25/2024 11:57 PM EDT [facility] Blood, Arterial 10/25/2024 1 1:40 PM EDT 10/25/2024 11:57 PM EDT us Semaj Mcnair III, MD POINT OF CARE TEST ORDERABLES Final Result Performing Organization Address [facility] Co de Phone Number [facility] [address] [facility]. [address] * (ABNORMAL) POC TCO2 (10/25/2024 11:40 PM EDT) POC TCO2, Arterial 21(L) 23 - 27 mmol/L 10/25/2024 11:57 PM EDT [facility] Blood, Arterial 10/25/2024 1 1:40 PM EDT 10/25/2024 11:57 PM EDT us Semaj Mcnair III, MD POINT OF CARE TEST ORDERABLES Final Result Performing Organization Address [facility] Co de Phone Number [facility] [address] Hospital[facility]. [address] * POC O2 SAT (10/25/2024 11:40 PM EDT) Pathologist [facility] POC O2 Saturation, Arterial 98 95 - 98 % 10/25/2024 11:57 PM EDT [facility] Blood, Arterial 10/25/2024 1 1:40 PM EDT 10/25/2024 11:57 PM EDT us Semaj Mcnair III, MD POINT OF CARE TEST ORDERABLES Final Result Performing Organization Address [facility] Co de Phone Number [facility] [address] HospitalMar[facility]za [facility]. [address] * (ABNORMAL) POC Base Excess (10/25/2024 11:40 PM EDT) POC Base Excess, Arterial -6(L) -2 - 3 mmol/L 10/25/2024 11:57 PM EDT [facility] Blood, Arterial 10/25/2024 1 1:40 PM EDT 10/25/2024 11:57 PM EDT us Semaj Mcnair III, MD POINT OF CARE TEST ORDERABLES Final Result Performing Organization Address [facility] Co de Phone Number [facility] [address] * (ABNORMAL) POC HCO3 (10/25/2024 11:40 PM EDT) POC HCO3, Arterial 20(L) 22 - 26 mmol/L 10/25/2024 11:57 PM EDT [facility] Blood, Arterial 10/25/2024 1 1:40 PM EDT 10/25/2024 11:57 PM EDT Semaj Mcnair III, MD POINT OF CARE TEST ORDERABLES Final Result Performing Organization Address [facility] Co de Phone Number [facility] [address] [facility]. [address] * (ABNORMAL) POC PO2 (10/25/2024 11:40 PM EDT) POC pO2, Arterial 107(H) 80 - 100 mm Hg 10/25/2024 11:57 PM EDT [facility] Blood, Arterial 10/25/2024 1 1:40 PM EDT 10/25/2024 11:57 PM EDT Semaj Mcnair III, MD POINT OF CARE TEST ORDERABLES Final Result Performing Organization Address [facility] Co de Phone Number [facility] [address] [facility]. [address] * POC PCO2 (10/25/2024 11:40 PM EDT) POC pCO2, Arterial 41 35 - 45 mm Hg 10/25/2024 11:57 PM EDT [facility] Blood, Arterial 10/25/2024 1 1:40 PM EDT 10/25/2024 11:57 PM EDT us Semaj Mcnair III, MD POINT OF CARE TEST ORDERABLES Final Result Performing Organization Address City/[facility]/ZIP Co de Phone Number [facility] [address] * (ABNORMAL) POC pH (10/25/2024 11:40 PM EDT) POC pH, Arterial 7.29(L) 7.35 - 7.45 10/25/2024 11:57 PM EDT [facility] Blood, Arterial 10/25/2024 1 1:40 PM EDT 10/25/2024 11:57 PM EDT Semaj Mcnair III, MD POINT OF CARE TEST ORDERABLES Final Result Performing Organization Address [facility] Co de Phone Number [facility] [address] * Urine culture (10/25/2024 11:08 PM EDT) Culture Result <1,000 cfu/mL [facility] Culture Result Skin/Urogeni rony Mckayla. No Further Workup. [facility] Newly Placed Berkowitz Urine URINE SPECIMEN / Unknown 10/25/2024 11:08 PM EDT Comment:urine culture Narrative [facility] - 10/28/2024 9:59 AM EDT urine culture urine culture us Semaj Mcnair III, MD MICROBIOLOGY - GENE RAL ORDERABLES Final Result Performing Organization Address City/[facility]/ZIP Co de Phone Number [facility] [address] * X-ray Portable Chest (10/25/2024 10:19 [...] 10/25/2024 10:38 PM EDT Leandra Og MD [facility] ORDERABLES Final Result * Lactic Acid, STAT (10/25/2024 10:17 PM EDT) Lactate 1.6 0.5 - 2.2 mmol/L 10/25/2024 10:39 PM EDT [facility] Plasma 10/25/2024 10:1 7 PM EDT 10/25/2024 10:17 PM EDT Ben Blake MD LAB BLOOD ORDERABLES Final Re sult [facility] [address] [facility] * (ABNORMAL) Ferritin (10/25/2024 10:17 PM EDT) Ferritin 623.2(H) 23.9 - 336.2 ng/mL 10/25/2024 11:02 PM EDT [facility] Serum 10/25/2024 10:1 7 PM EDT 10/25/2024 10:17 PM EDT Result [facility] Leandra Og MD LAB BLOOD ORDERABLES F inal Result Performing Organization Address [facility]/ZIP Co de Phone Number [facility] [address] [facility]. [address] * Iron Studies (Iron + TIBC) [...] PM EDT 10/25/2024 10:17 PM EDT Result [facility] Leandra Og MD LAB BLOOD ORDERABLES F inal Result [facility] [address] * PTH (10/25/2024 10:17 PM EDT) PTH 36.0 12.0 - 88.0 pg/mL 10/25/2024 11:01 PM EDT [facility] Serum 10/25/2024 10:1 7 PM EDT 10/25/2024 10:17 PM EDT us Leandra Og MD LAB BLOOD ORDERABLES F inal Result Performing Organization Address City/[facility]/ZIP Co de Phone Number [facility] [address] [place] [address]. [address] * HIV 1+2 Antibody/Antigen with Reflex (10/25/2024 10:17 PM EDT) Pathologist [facility] HIV 1+2 AB/AGN Nonreactive Nonreactive 10/25/2024 11:03 PM EDT [facility] Serum 10/25/2024 10:1 7 PM EDT 10/25/2024 10:16 PM EDT Narrative [facility] - 10/25/2024 11:03 PM EDT \HIVRNR us Leandra Og MD LAB BLOOD ORDERABLES F inal Result Performing Organization Address City/[facility] Co de Phone Number [facility] [address] [place] [address]. [address] * Hepatitis B Core Antibody (10/25/2024 10:17 PM EDT) Hep B Core Total Ab Nonreactive Nonreactive 10/25/2024 11:07 PM EDT [facility] Comment:Health Department no tified in accordance with reportable infectious disease guidelines. Serum 10/25/2024 10:1 7 PM EDT 10/25/2024 10:17 PM EDT Narrative [facility] - 10/25/2024 11:07 PM EDT A nonreactive final interpretation indicates that anti-HBc antibodies were not detected in the sample; it is possible that the individual is not infected with HBV. us Leandra Og MD LAB BLOOD ORDERABLES F inal Result [facility] [address] * Hepatitis C Antibody (10/25/2024 10:17 PM EDT) HCV Ab Nonreactive Nonreactive 10/25/2024 11:16 PM EDT [facility] Comment:Health Department no tified in accordance with reportable infectious disease guidelines. Serum 10/25/2024 10:1 7 PM EDT 10/25/2024 10:17 PM EDT Narrative [facility] - 10/25/2024 11:16 PM EDT Antibodies to HCV not detected; does not exclude the possibility of exposure to HCV. Leandra Og MD LAB BLOOD ORDERABLES F inal Result Performing Organization Address [facility] Co de Phone Number [facility] [address] * (ABNORMAL) Hepatitis B Surface Antibody, Quantitati (10/25/2024 10:17 PM EDT) HBSAB NUMBER 10.70(H) 0.00 - 9.99 mIU/mL 10/25/2024 11:52 PM EDT [facility] Hep B S Ab Equivocal (A) Nonreactive 10/25/2024 11:52 PM EDT [facility] Serum 10/25/2024 10:1 7 PM EDT 10/25/2024 10:17 PM EDT Leandra Og MD LAB BLOOD ORDERABLES F inal Result Performing Organization Address City/[facility]/ZIP Co de Phone Number [facility] [address] [facility]. [address] * Hepatitis B surface antigen (10/25/2024 10:17 PM EDT) Hep B Surface Ag Nonreactive Nonreactive 10/25/2024 11:12 PM EDT [facility] Comment:Health Department no tified in accordance with reportable infectious disease guidelines. Serum 10/25/2024 10:1 7 PM EDT 10/25/2024 10:17 PM EDT Narrative [facility] - 10/25/2024 11:12 PM EDT Specimen is considered negative for HBsAg. Leandra Og MD LAB BLOOD ORDERABLES F inal Result Performing Organization Address City/[facility]/ZIP Co de Phone Number [facility] [address] [facility]. [address] * Hepatitis A Antibody Total (10/25/2024 10:17 PM EDT) Anti-HAV Total (IgG + IgM) Nonreactive 10/25/2024 11:13 PM EDT [facility] Serum 10/25/2024 10:1 7 PM EDT 10/25/2024 10:17 PM EDT Narrative [facility] - 10/25/2024 11:13 PM EDT HAV antibodies not detected Leandra Og MD LAB BLOOD ORDERABLES F inal Result Performing Organization Address [facility] Co de Phone Number [facility] [address] [facility]. [address] * (ABNORMAL) Hepatic Function Panel (10/25/2024 10:17 PM EDT) Total Bilirubin 9.1(H) 0.0 - 1.5 mg/dL 10/25/2024 10:47 PM EDT [facility] Bilirubin, Direct 4.58(H) 0.00 - 0.40 mg/dL 10/25/2024 10:47 PM EDT [facility] AST 51(H) 13 - 39 U/L 10/25/2024 10:47 PM EDT [facility] ALT 23 7 - 52 U/L 10/25/2024 10:47 PM EDT [facility] Alkaline Phosphatase 144(H) 36 - 125 U/L 10/25/2024 10:47 PM EDT [facility] Total Protein 5.5(L) 6.4 - 8.9 g/dL 10/25/2024 10:47 PM EDT [facility] Albumin 3.5 3.5 - 5.7 g/dL 10/25/2024 10:47 PM EDT [facility] Bilirubin, Indirect 4.52(H) 0.00 - 1.10 mg/dL 10/25/2024 10:47 PM EDT [facility] Plasma 10/25/2024 10:1 7 PM EDT 10/25/2024 10:17 PM EDT us Leandra Og MD LAB BLOOD ORDERABLES F inal Result [facility] [address] [facility] [place] [address], [facility] * (ABNORMAL) Renal Function Panel w/EGFR (10/25/2024 10:17 PM EDT) Sodium 137 133 - 146 mmol/L 10/25/2024 10:47 PM EDT [facility] Potassium 2.1(LL) 3.5 - 5.3 mmol/L 10/25/2024 10:47 PM EDT [facility] Comment:Critical Result K:2. 1 Called to and read back by: ALICIA CARCAMO RN at: 10/25/2024 22:47:45 by:NANCY Chloride 100 98 - 110 mmol/L 10/25/2024 10:47 PM EDT [facility] CO2 20(L) 21 - 33 mmol/L 10/25/2024 10:47 PM EDT [facility] Anion Gap 17(H) 3 - 16 mmol/L 10/25/2024 10:47 PM EDT [facility] BUN 74(H) 7 - 25 mg/dL 10/25/2024 10:47 PM EDT [facility] Creatinine 3.87(H) 0.60 - 1.30 mg/dL 10/25/2024 10:47 PM EDT [facility] Glucose 114(H) 70 - 100 mg/dL 10/25/2024 10:47 PM EDT [facility] Calcium 9.3 8.6 - 10.3 mg/dL 10/25/2024 10:47 PM EDT [facility] Phosphorus 5.9(H) 2.1 - 4.7 mg/dL 10/25/2024 10:47 PM EDT [facility] Albumin 3.5 3.5 - 5.7 g/dL 10/25/2024 10:47 PM EDT [facility] Osmolality, Calculated 307(H) 278 - 305 mOsm/kg 10/25/2024 10:47 PM EDT [facility] EGFR 19 10/25/2024 10:47 PM EDT [facility] Comment:As of 2021, [...] MD LAB BLOOD ORDERABLES F inal Result [facility] [address] * (ABNORMAL) APTT, NO ANTICOAGULANT (10/25/2024 10:17 PM EDT) aPTT 41.7(H) 25.5 - 35.0 seconds 10/25/2024 10:36 PM EDT [facility] Plasma 10/25/2024 10:1 7 PM EDT 10/25/2024 10:17 PM EDT us Leandra Og MD LAB BLOOD ORDERABLES F inal Result Performing Organization Address [facility] Co de Phone Number [facility] [address] [facility]. [address] * (ABNORMAL) Protime-INR (10/25/2024 10:17 PM EDT) Pathologist [facility] Protime 21.7(H) 12.1 - 15.1 seconds 10/25/2024 10:35 PM EDT [facility] INR 1.8(H) 0.9 - 1.1 10/25/2024 10:35 PM EDT [facility] Comment: RECOMMENDED THERAPEUTIC RANGES USING INR : Stable oral anticoagulant therapy: 2.0 - 3.0 Mechanical prosthetic heart valve: 2.5 - 3.5 Recurrent acute myocardial infarction: 2.5 - 3.5 Plasma 10/25/2024 10:1 7 PM EDT 10/25/2024 10:17 PM EDT Leandra Og MD LAB BLOOD ORDERABLES F inal Result Performing Organization Address [facility] Co de Phone Number [facility] [address] [facility]. [address] * (ABNORMAL) Differential (10/25/2024 10:17 PM EDT) [facility] Differential Comments See Note 10/25/2024 10:54 PM EDT [facility] Comment: _Platelets Appear Decreased _Platelet Morphology Normal Scan Result PERFORMED 10/25/2024 10:54 PM EDT [facility] Neutrophils Relative 79.8 40.0 - 80.0 % 10/25/2024 10:54 PM EDT [facility] Lymphocytes Relative 9.6(L) 15.0 - 45.0 % 10/25/2024 10:54 PM EDT [facility] Monocytes Relative 8.9 0.0 - 12.0 % 10/25/2024 10:54 PM EDT [facility] Eosinophils Relative 1.3 0.0 - 8.0 % 10/25/2024 10:54 PM EDT [facility] Basophils Relative 0.4 0.0 - 1.0 % 10/25/2024 10:54 PM EDT [facility] nRBC 0 0 - 0 /100 WBC 10/25/2024 10:54 PM EDT [facility] Neutrophils Absolute 4,948 1,520 - 8,640 /uL 10/25/2024 10:54 PM EDT [facility] Lymphocytes Absolute 595 570 - 4,860 /uL 10/25/2024 10:54 PM EDT [facility] Monocytes Absolute 552 0 - 1,296 /uL 10/25/2024 10:54 PM EDT [facility] Eosinophils Absolute 81 0 - 864 /uL 10/25/2024 10:54 PM EDT [facility] Basophils Absolute 25 0 - 108 /uL 10/25/2024 10:54 PM EDT [facility] PLT Morphology Platelet morphology appears normal 10/25/2024 10:54 PM EDT [facility] Whole Blood 10/25/2024 10:1 7 PM EDT 10/25/2024 10:17 PM EDT us Leandra Og MD LAB BLOOD ORDERABLES F inal Result [facility] [address] * (ABNORMAL) CBC (10/25/2024 10:17 PM EDT) WBC 6.2 3.8 - 10.8 10E3/uL 10/25/2024 10:54 PM EDT [facility] RBC 2.40(L) 4.20 - 5.80 10E6/uL 10/25/2024 10:54 PM EDT [facility] Hemoglobin 8.3(L) 13.2 - 17.1 g/dL 10/25/2024 10:54 PM EDT [facility] Hematocrit 23.7(L) 38.5 - 50.0 % 10/25/2024 10:54 PM EDT [facility] MCV 98.9 80.0 - 100.0 fL 10/25/2024 10:54 PM EDT [facility] MCH 34.6(H) 27.0 - 33.0 pg 10/25/2024 10:54 PM EDT [facility] MCHC 35.0 32.0 - 36.0 g/dL 10/25/2024 10:54 PM EDT [facility] RDW 17.8(H) 11.0 - 15.0 % 10/25/2024 10:54 PM EDT [facility] Platelets 56(L) 140 - 400 10E3/uL 10/25/2024 10:54 PM EDT [facility] Comment: Specimen checked for clots. None detected. Slide Reviewed for PLT Clumps. None Seen. Platelet Estimate Decreased 10/25/2024 10:54 PM EDT [facility] MPV 8.1 7.5 - 11.5 fL 10/25/2024 10:54 PM EDT [facility] Whole Blood 10/25/2024 10:1 7 PM EDT 10/25/2024 10:17 PM EDT Narrative [facility] - 10/25/2024 10:54 PM EDT Peripheral blood smear was scanned per review criteria approved by the laboratory medical practice administrator. Leandra Og MD LAB BLOOD ORDERABLES F inal Result Performing Organization Address [facility] Co de Phone Number [facility] [address] [place] [address] * Donor Specific Antibody (DSA) (10/25/2024 10:00 PM EDT) AntiDonor Antibodies The request and specimen(s) for this test have been received and transported to the [facility] at [address] [place] [address]. The [facility] will report results directly to the client. 10/25/2024 10:20 PM EDT [facility] Comment:Testing performed by [facility], [facility], [address] [place] [address]. The [facility] report has been forwarded to the appropriate ordering location. Please refer to this report for patient results. Serum 10/25/2024 10:0 0 PM EDT 10/25/2024 10:20 PM EDT Leandra Og MD LAB BLOOD ORDERABLES F inal Result [facility] [address] * (ABNORMAL) Venous Blood Gas, Line/Syringe (10/25/2024 10:00 PM EDT) PH-Line Draw 7.38 7.32 - 7.42 10/25/2024 10:08 PM EDT [facility] PCO2-Line Draw 33(L) 41 - 51 mm Hg 10/25/2024 10:08 PM EDT [facility] PO2-Line Draw 33 25 - 40 mm Hg 10/25/2024 10:08 PM EDT [facility] HCO3-Line Draw 20(L) 24 - 28 mmol/L 10/25/2024 10:08 PM EDT [facility] CO2 Content-Line Draw 21(L) 25 - 29 mmol/L 10/25/2024 10:08 PM EDT [facility] Base Excess-Line Draw -5.0(L) -2.0 - 3.0 mmol/L 10/25/2024 10:08 PM EDT [facility] %HBO2-Line Draw 53.8 40.0 - 70.0 % 10/25/2024 10:08 PM EDT [facility] Carboxyhgb-Ludivina e Draw 1.9 % 10/25/2024 10:08 PM EDT [facility] Comment: CARBOXYHEMOGLOBIN (CO) REFERENCE RANGES: Non-Smokers: <2 % Smokers: <8 % TOXIC: >20 % Methemoglobin- Line Draw 0.2 0.0 - 1.5 % 10/25/2024 10:08 PM EDT [facility] Reduced Hemoglobin-Ludivina e Draw 44.1(H) 0.0 - 5.0 % 10/25/2024 10:08 PM EDT [facility] Venous, Line Draw 10/25/2024 10:00 PM EDT 10/25/2024 10:04 PM EDT us Leandra Og MD LAB BLOOD ORDERABLES F inal Result [facility] [address] [place] [address], [facility] * (ABNORMAL) POC Glucose Monitoring Device (10/25/2024 9:56 PM EDT) POC Glucose Monitoring Device 103(H) 70 - 100 mg/dL 10/25/2024 9:58 PM EDT [facility] Blood 10/25/2024 9:56 PM EDT 10/25/2024 9:57 PM EDT Semaj Mcnair III, MD POINT OF CARE TEST ORDERABLES Final Result Performing Organization Address [facility] Co de Phone Number [facility] [address] * ECG 12 lead (MUSE) (10/25/2024 9:34 PM EDT) 10/25/2024 9:34 PM EDT Narrative MUSE - 10/27/2024 10:08 AM EDT Ventricular Rate: 97 BPM Atrial Rate: 86 BPM QRS Duration: 106 ms QT: 532 ms QTc: 675 ms P Elizabeth: 38 degrees R Elizabeth: -29 degrees T Elizabeth: 32 degrees Diagnosis Line: Critical Test Result: Long QTc , AV Block ^ SINUS RHYTHM WITH PREMATURE VENTRICULAR COMPLEXES ^ PROLONGED QT ^ NONSPECIFIC ST AND T WAVE CHANGES ^ ABNORMAL ECG ^ ^ Confirmed by MD HA, [facility] ([facility]) on 10/27/2024 10:08:26 AM Leandra Og MD ECG ORDERABLES Final Result Performing Organization Address [facility] Co de Phone Number [...] log 10 IU/mL 10/27/2024 11:03 AM EDT [facility] Comment:HCV RNA not detected . Plasma 10/25/2024 8:18 PM EDT 10/25/2024 10:27 PM EDT us Leadnra Og MD LAB BLOOD ORDERABLES F inal Result [facility] [address] [place], [place] [address] * Urinalysis w/Rfl to Microscopic (10/25/2024 8:18 PM EDT) Color, UA Yellow Yellow,Straw 10/25/2024 10:38 PM EDT [facility] Clarity, UA Clear Clear 10/25/2024 10:38 PM EDT [facility] Specific [place], UA 1.010 1.005 - 1.035 10/25/2024 10:38 PM EDT [facility] pH, UA 6.0 5.0 - 8.0 10/25/2024 10:38 PM EDT [facility] Protein, UA Negative Negative mg/dL 10/25/2024 10:38 PM EDT [facility] Glucose, UA Negative Negative mg/dL 10/25/2024 10:38 PM EDT [facility] Ketones, UA Negative Negative mg/dL 10/25/2024 10:38 PM EDT [facility] Bilirubin, UA Negative Negative 10/25/2024 10:38 PM EDT [facility] Blood, UA Negative Negative 10/25/2024 10:38 PM EDT [facility] Nitrite, UA Negative Negative 10/25/2024 10:38 PM EDT [facility] Urobilinogen, UA <2.0 0.2 - 1.9 mg/dL 10/25/2024 10:38 PM EDT [facility] Leukocyte Esterase, UA Negative Negative 10/25/2024 10:38 PM EDT [facility] Urine 10/25/2024 8:18 PM EDT 10/25/2024 10:35 PM EDT Narrative [facility] - 10/25/2024 10:38 PM EDT Microscopic testing is not performed when the dipstick is negative for blood, leukocyte, protein and nitrite. Leandra Og MD URINE ORDERABLES Final Result Performing Organization Address City/[facility]/ZIP Co de Phone Number [facility] [address] [place] [address] * Toxoplasma gondii antibody, IgG (10/25/2024 8:18 PM EDT) Pathologist [facility] Toxoplasma Gondii IgG <3.0 0.0 - 7.1 IU/mL 10/27/2024 7:55 AM EDT [facility] Comment: Negative <7.2 Equivocal 7.2 - 8.7 Positive >8.7 Serum 10/25/2024 8:18 PM EDT 10/27/2024 8:06 AM EDT Narrative [facility] - 10/27/2024 8:06 AM EDT PERFORMED AT: [facility] [id number] [employer] OFFICER: Bassam Khalil, PhD PHONE: [phone] Leandra Og MD LAB BLOOD ORDERABLES F inal Result Performing Organization Address [facility] Co de Phone Number [facility] [address] [place] [address]. [address] * Antibody Screen (10/25/2024 7:46 PM EDT) Pathologist [facility] Antibody Screen Negative 10/25/2024 10:41 PM EDT [facility] Blood 10/25/2024 7:46 PM EDT 10/25/2024 9:54 PM EDT Narrative [facility] - 10/25/2024 10:44 PM EDT Testing performed by [facility] Transfusion Service Ben Blake MD BLOOD BANK TEST ORDERABLES Fi nal Result [facility] [address] * ABO/Rh (10/25/2024 7:46 PM EDT) ABO Grouping O 10/25/2024 10:23 PM EDT [facility] Rh Type Positive 10/25/2024 10:23 PM EDT [facility] Blood 10/25/2024 7:46 PM EDT 10/25/2024 9:54 PM EDT us Ben Blake MD BLOOD BANK TEST ORDERABLES Fi nal Result [facility] [address] [place] [address], [facility] * (ABNORMAL) TEG-Standard Global Hemostasis (Rapid TEG with Heparin Effect, Contains a Baseline TEG) (10/25/2024 7:46 PM EDT) Citrated Kaolin Reaction Time (TEGHEPARINASE) 8.4 4.6 - 9.1 minutes 10/25/2024 10:49 PM EDT [facility] Citrated Rapid Teg Maximum Amplitude (TEGHEPARINASE) <40.0(L) 52.0 - 70.0 mm 10/25/2024 10:49 PM EDT [facility] Citrated Functional Fibrinogen Maximum Amplitude (TEGHEPARINASE) 6.7(L) 15.0 - 32.0 mm 10/25/2024 10:49 PM EDT [facility] Citrated Kaolin W/Heparinase Reaction Time (TEGHEPARINASE) 8.1 4.3 - 8.3 minutes 10/25/2024 10:49 PM EDT [facility] Citrated Kaolin K-Time (TEGHEPARINASE) 2.5(A) 0.8 - 2.1 minutes 10/25/2024 10:49 PM EDT [facility] Citrated Kaolin Angle (TEGHEPARINASE) 65.7(A) 63.0 - 78.0 degrees 10/25/2024 10:49 PM EDT [facility] Citrated Kaolin Maximum Amplitude (TEGHEPARINASE) <40.0(L) 52.0 - 69.0 mm 10/25/2024 10:49 PM EDT [facility] Citrated Functional Fibrinogen- Fibrinogen Level (TEGHEPARINASE) 159.5(L) 278.0 - 581.0 mg/dL 10/25/2024 10:49 PM EDT [facility] Whole Blood (Citrate) 10/25/2024 7:46 PM EDT 10/25/2024 10:15 PM EDT us Ben Blake MD LAB BLOOD ORDERABLES Final Re sult [facility] [address] [place] [address], [facility] documented in this encounter Visit Diagnoses Diagnosis Acute kidney injury superimposed on CKD ([facility])- Primary Prophylactic antibiotic Encounter for long-term (current) use of antibiotics Prolonged QT interval Nonspecific abnormal electrocardiogram (ECG) (EKG) Immunosuppression ([facility]) Abdominal pain, unspecified abdominal location Acute kidney injury superimposed on CKD ([facility]) documented in this encounter Administered Medications Inactive [...] Yvonne Gale RN)[id number] (Given - Provider: Yvonne aGle, ЮЛИЯ)[id number] (Given - Provider: Paulette Flannery, ЮЛИЯ) [...] documented as of this encounter Care Teams Hot Box Spotter Relationship Specialty Start Date End Date Enedina Mcguire NP [address] [place], [place] [id number] PCP - General Internal Medicine 10/05/24 documented as of this encounter
--- OUTSIDE RECORDS SUMMARY | 2024-10-27 02:34 | XMS_ITS | Encounter Summary ---
Author Organization [facility] Address [facility] [place] [address] Care Team Providers Care Syrup Mixer Name Role Phone Enedina Mcguire NP Primary Care Provider [phone] Source Comments This information has been disclosed [...] release of HIV test results or diagnoses. [id number] Reason for Visit * Auth/Cert (Routine) Specialty Diagnoses / Procedures Referred By Shane t Referred To Contact Surgical Intensive Care Diagnoses Liver transplant recipient (CMS-HCC) cirrhosis and CKD Procedures LIVER-KIDNEY TRANSPLANT [facility] SICU [address] [place] [address] Phone: tel: Referral ID Status Reason Start Date Expiration Date Visits Re quested Visits Authorized [id number] 1 1 Encounter Details Date Type Department Care Team (Late st Contact Info) Description 10/27/2024 2:34 AM EDT Anesthesia Event [facility] PERIOP [address] [place] [address] Rocky Manning MD [address] [phone] Con Gramajo MD [address] [place] [address] Anesthesia Record Procedure Summary Procedure Name Responsible [...] % 100 mL IVPB 250 mg phenylephrine (HNUG-SYNEPHRINE) injection 100 mcg potassium chloride (KCl) 10 mEq in 100 m L IVPB 20 mEq calcium chloride 10% injection 1.75 g furosemide (LASIX) 10 mg/ml injection 10 0 mg heparin (porcine) injection 5,000 Units 5,000 Units AMPicillin 1 g in sodium chloride 0.9% 1 00 mL IVPB (Fxaj7Dcg) 1 g cefTRIAXone (ROCEPHIN) 2 g in sodium chl oride 0.9 % 100 mL Lkls0Uux 2 g electrolyte-r (pH 7.4)(NORMOSOL-R pH 7.4 [...] Sounds Confirmed 10/26/24 0622 by Martha Phillip, FIREBRICK LAYER 10/27/24 1310 by Chinedu Almeida, FIREBRICK LAYER Drain 10/27/24; 0636; Bulb ; Abdomen; Inferior, Right; 19 Fr.; 1109; Per order 10/27/24 0636 by Chinedu Qunin RN 10/30/24 1109 by Mery Sullivan RN [...] the past 12 months has th e [employer], gas, oil, or water [email or web address] threatened to shut off services in your [...] in a care home (including now)? No 10/29/2024 Yearly Questionnaire [...] Blake MD - 10/26/2024 8:01 PM EDT [facility] DEPARTMENT OF ANESTHESIOLOGY PRE-PROCEDURAL EVALUATION Julien Anderson is a 39 y.o. year old male presenting for: Procedure(s): TRANSPLANT KIDNEY with bile duct reconstruction Surgeon: Harvey Domínguez III, MD Chief Complaint cirrhosis and CKD; Liver transplant recipient ([facility]) EtOH cirrhosis decompensated by esophageal varices, hepatic [...] dysrhythmias, angina, orthopnea. ECG reviewed. ROS comment: [facility] 10/14/24: IMPRESSIONS: - Patent coronary arteries without [...] is no recent study available for direct waas-bp-xfud comparison. Stress echo 10/09/24: - Left ventricle: [...] at baseline or with provocation, shows no nxwtw-di-wtxj atrial level shunt. - Pulmonary arteries: Systolic [...] Resource Strain: Low Risk (07/09/2024) Received from [facility] Overall Financial Resource Strain (CARDIA) Difficulty [...] No Physical Activity: Unknown (07/14/2024) Received from [facility] Exercise Vital Sign Days of Exercise per Week: Patient unable to answer Minutes of Exercise per Session: Not on file Stress: Patient Unable To Answer (07/14/2024) Received from [facility] [place] of Occupational Health - Occupational Stress Questionnaire Feeling of Stress : Patient unable to answer Social Connections: Patient Unable To Answer (07/14/2024) Received from [facility] Social Connection and Isolation Panel [NHANES] Frequency of Communication with Friends and Family: Patient unable to answer Frequency of Social Gatherings with Friends and Family: Patient unable to answer Attends Restorationist Services: Patient unable to answer Active Member [...] at 9:00 PM naloxone (NARCAN) 4 mg/actuation [place] Apply 1 spray in one nostril if [...] Blood products not discussed. Plan discussed with WATERSHED PROGRAM MANAGER and attending. no trial extubation [1] Allergies [...] Date 10/26/24699 - 10/27/2465810/27/24699 - 10/28/2459 Shift 9742-4289 3852-6172 5953-4850 24 Hour Total 4219-7145 9874-0596 3569-4096 24 Hour Total INTAKE I.V.(mL/kg) 1450.8(11.8) 999.1(8.2) [...] 1 x 1 x 3 x Albumin 9110 330 8130 Volume (Transfuse Cryoprecipitate Transfusion Rate: Per dept [...] in sodium chloride 0.9 % 100 mL Fjsd7Rag) 20 20 Volume (mL) (methylPREDNISolone sodium succinate (SOLU-medrol) 250 mg in sodium chloride 0.9 % 100 mL IVPB) 100 100 Volume (mL) (AMPicillin 1 g in sodium chloride 0.9% 100 mL IVPB (Gnnz5Kmt)) 200.2 100 120 420.1 Volume (mL) (mycophenolate [...] 99.3 99.3 Shift Total(mL/kg) 3124.1(25.5) 4253.7(34.7) 6907(56.4) 20824.8(116.6) OUTPUT Urine(mL/kg/hr) 955(1) 505(0.5) 690(0.7) 2150(0.7) 360 360 Urine 315 315 360 360 Output (mL) (IUC (Berkowitz) Triple-lumen (3-Way) 18 Fr.) 955 230 066 2204 Emesis/NG output 250 600 850 Drainage Output (mL) (NG/OG Tube Orogastric) 250 600 850 Drains 1700 9179 835 0229 Output (mL) (Drain Bilary Abdomen Inferior;Right) 100 150 250 Output (mL) ([REMOVED] Drain 1 Abdomen Right;Superior) 800 064 165 2745 Output (mL) (Drain 2 Left;Superior) 800 755 91 2420 Blood 300 300 Est Blood Loss 300 [...] in sodium chloride 0.9% 100 mL IVPB (Pmgl0Aoc) 1 g, Intravenous, at 200 mL/hr, Every 6 hours scheduled (4 times per day), First dose on Sun10/26/24 at 0630, For 2 days, Dosage may need to be adjusted for renal dysfunction. Full dose is 1g IV q6h Use Kjji8Pbv Adapter - Mix Thoroughly Before Administration New [...] Once underlying shock sufficiently improved, defined as gwk-kfhnvunxoah-YY-presso r requirement ? 0.2 mcg/kg/min (norepinephrine equivalent) [...] in sodium chloride 0.9 % 100 mL Dcam7Ibq Intravenous, Administer over 30 Minutes, Continuous - [...] paralyzed: Do not titrate - follow policy [id number]. Start infusion if unable to maintain goal [...] documented as of this encounter Care Teams Syrup Mixer Relationship Specialty Start Date End Date Enedina Mcguire NP [address] [place] [address] PCP - General Internal Medicine 10/05/24 documented as of this encounter
--- OUTSIDE RECORDS SUMMARY | 2024-11-04 08:40 | XMS_ITS | Encounter Summary ---
Author Organization [facility] Address [address] [place] [address] Care Team Providers Care Glove Finisher Name Role Phone Enedina Mcguire NP Primary Care Provider + [phone] Maureen Pantoja RN Unavailable Unavail able Source [...] release of HIV test results or diagnoses. [id number] Reason for Visit * Reason Comments Liver Transplant Follow-up Encounter Details Date Type Department Care Team (Late st Contact Info) Description 11/04/2024 8:40 AM EDT Office Visit [facility] Liver Transplant at [place] [address] [facility] [address] [place] [address] Cosmo Pacheco MD [address] [place] [address] [address] [place] [address] Liver transplant recipient (CMS-HCC) (Primary [...] the past 12 months has th e [employer], [employer], oil, or water company threatened to shut [...] living in a fci (including now)? No 10/29/2024 Yearly Questionnaire Answer [...] Nutrition: patient continues close f/u w/ transplant shot packer. - Bone health: Vit D level to be drawn ~POD#90. - Labs: Labs (CBC w/ diff, renal panel, liver panel, tacro level) twice a week. Lipid panel, [id number] Vit D level to be drawn at [...] management for this patient. Cosmo Pacheco MD Filter Tank Tender of Transplant Surgery [phone] (m) [1] Allergies Allergen Reactions Adhesive Itching [...] encounter Visit Diagnoses Diagnosis Liver transplant recipient ([facility])- Primary Alcoholic cirrhosis of liver with ascites ([facility]) Kidney transplant recipient Acute kidney injury superimposed on CKD ([facility]) CKD (chronic kidney disease) stage 4, GFR 15-29 ml/min ([facility]) Chronic kidney disease, Stage IV (severe) Immunosuppressive management encounter following liver transplant ([facility]) Abdominal pain, unspecified abdominal location documented in this encounter Additional Health Concerns Infection Onset Date Last Indicated Resolved Time 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
--- OUTSIDE RECORDS SUMMARY | 2024-11-04 10:10 | XMS_ITS | Encounter Summary ---
Author Organization [facility] Address [facility] [place] [address] Care Team Providers Care Dentofacial Orthopedics Dentist Name Role Phone Enedina Mcguire NP Primary Care Provider + [phone] Maureen Pantoja RN Unavailable Unavail able Source [...] release of HIV test results or diagnoses. [id number] Reason for Visit * Reason Comments Kidney Transplant Follow-up Encounter Details Date Type Department Care Team (Late st Contact Info) Description 11/04/2024 10:10 AM EDT [facility] [address] [facility] [address] [place] [address] Leisa Juarez MD [facility] 2nd [place] [address] Kidney transplant recipient (Primary Dx); [...] the past 12 months has th e [employer], [employer], oil, or water [employer] threatened to shut off services in your [...] packing; Surgeon: Harvey Domínguez III, MD; Location: [facility]; Service: Transplant; Laterality: N/A; Family History: [...] Received from [facility] Exercise Vital Sign Days of Exercise per Week: Patient unable to answer Minutes of Exercise per Session: Not on file Stress: Patient Unable To Answer (07/14/2024) Received from [facility] [place] [facility] Occupational Health - Occupational Stress Questionnaire Feeling of Stress : Patient unable to answer Social Connections: Patient Unable To Answer (07/14/2024) Received from [facility] Social Connection and Isolation Panel [NHANES] Frequency [...] = 12 units lancets (ACCU-CHEK SOFTCLIX LANCETS) [facility] Use to test blood sugar up to [...] times a day. naloxone (NARCAN) 4 mg/actuation [place] Apply 1 spray in one nostril if [...] Results Component Value Date PTH 36.0 10/25/2024 [id number] 7.1 (L) 10/08/2024 Hemoglobin A1C: Lab Results [...] - 2.5 mg/dL 11/25/2024 10:20 AM EDT [facility] Plasma 11/25/2024 8:42 AM EDT 11/25/2024 9:47 AM EDT Yareli Zaragoza [facility] BLOOD ORDERABLES Denisse l Result Performing Organization Address City/[facility]/ZIP Co de Phone Number [facility] [address] * (ABNORMAL) Magnesium (11/11/2024 9:13 AM EDT) Magnesium 1.2(L) 1.5 - 2.5 mg/dL 11/11/2024 10:51 AM EDT [facility] Plasma 11/11/2024 9:13 AM EDT 11/11/2024 10:19 AM EDT Yareli Zaragoza [facility] BLOOD ORDERABLES Denisse l Result [facility] [address] * (ABNORMAL) Post Kidney Transplant Urine Culture (11/11/2024 9:13 AM EDT) Culture Result Enterococcus faecium(A) [facility] Comment: <1,000 cfu/mL Identified by MALDI-TOF MS No Further Workup Midstream Urine URINE SPECIMEN / Unknown 11/11/2024 9:13 AM EDT 11/11/2024 10:17 AM EDT Yareli Zaragoza CNP MICROBIOLOGY - GENERAL OR DERABLES Final Result Performing Organization Address [facility] Co de Phone Number [facility] [address] [facility] * Protein / creatinine ratio, urine (11/11/2024 9:13 AM EDT) Creatinine, Urine 71.40 mg/dL 11/11/2024 10:38 AM EDT [facility] Comment:Reference range not established for this test. Total Protein, Ur 28 mg/dL 11/11/2024 10:38 AM EDT [facility] Comment:Reference range not established for this test. Prot/Creat Ratio, Ur 0.39 ratio 11/11/2024 10:38 AM EDT [facility] Urine 11/11/2024 9:13 AM EDT 11/11/2024 10:12 AM EDT us Yareli Zaragoza CNP URINE ORDERABLES Final Re sult Performing Organization Address [facility]/ZIP Co de Phone Number [facility] [address] [facility] * (ABNORMAL) Urinalysis w/Rfl to Microscopic (11/11/2024 9:13 AM EDT) Color, UA Straw Yellow,Straw 11/11/2024 10:36 AM EDT [facility] Clarity, UA Clear Clear 11/11/2024 10:36 AM EDT [facility] Specific [place], UA 1.015 1.005 - 1.035 11/11/2024 10:36 AM EDT [facility] pH, UA 6.0 5.0 - 8.0 11/11/2024 10:36 AM EDT [facility] Protein, UA Negative Negative mg/dL 11/11/2024 10:36 AM EDT [facility] Glucose, UA Negative Negative mg/dL 11/11/2024 10:36 AM EDT [facility] Ketones, UA Negative Negative mg/dL 11/11/2024 10:36 AM EDT [facility] Bilirubin, UA Negative Negative 11/11/2024 10:36 AM EDT [facility] Blood, UA Small(A) Negative 11/11/2024 10:36 AM EDT [facility] Nitrite, UA Negative Negative 11/11/2024 10:36 AM EDT [facility] Urobilinogen, UA <2.0 0.2 - 1.9 mg/dL 11/11/2024 10:36 AM EDT [facility] Leukocyte Esterase, UA Negative Negative 11/11/2024 10:36 AM EDT [facility] RBC, UA 13(H) 0 - 3 /HPF 11/11/2024 10:36 AM EDT [facility] WBC, UA 4 0 - 5 /HPF 11/11/2024 10:36 AM EDT [facility] Urine 11/11/2024 9:13 AM EDT 11/11/2024 10:10 AM EDT Yareli Zaragoza DOOR MACHINE OPERATOR URINE ORDERABLES Final Re sult Performing Organization Address [facility]/ZIP Co de Phone Number [facility] [address] * (ABNORMAL) Magnesium (11/04/2024 8:46 AM EDT) Magnesium 1.0(L) 1.5 - 2.5 mg/dL 11/04/2024 10:06 AM EDT [facility] Plasma 11/04/2024 8:46 AM EDT 11/04/2024 9:32 AM EDT Yareli Zaragoza [facility] BLOOD ORDERABLES Denisse l Result Performing Organization Address [facility]/ZIP Co de Phone Number [facility] [address] * (ABNORMAL) Post Kidney Transplant Urine Culture (11/04/2024 8:46 AM EDT) Culture Result Enterococcus faecium, Vancomycin Resistant(A) [facility] Comment: 1,000- <10,000 cfu/mL Identified [...] OR DERABLES Final Result Performing Organization Address [facility] Co de Phone Number [facility] [address] [facility] * Protein / creatinine ratio, urine (11/04/2024 8:46 AM EDT) Creatinine, Urine 37.30 mg/dL 11/04/2024 2:55 PM EDT [facility] Comment:Reference range not established for this test. Total Protein, Ur 42 mg/dL 11/04/2024 2:55 PM EDT [facility] Comment:Reference range not established for this test. Prot/Creat Ratio, Ur 1.13 ratio 11/04/2024 2:55 PM EDT [facility] Urine 11/04/2024 8:46 AM EDT 11/04/2024 9:32 AM EDT Yareli Zaragoza CNP URINE ORDERABLES Final Re sult Performing Organization Address [facility]/ZIP Co de Phone Number [facility] [address] [facility] * (ABNORMAL) Urinalysis w/Rfl to Microscopic (11/04/2024 8:46 AM EDT) Color, UA Straw Yellow,Straw 11/04/2024 10:07 AM EDT [facility] Clarity, UA Clear Clear 11/04/2024 10:07 AM EDT [facility] Specific [place], UA 1.012 1.005 - 1.035 11/04/2024 10:07 AM EDT [facility] pH, UA 6.5 5.0 - 8.0 11/04/2024 10:07 AM EDT [facility] Protein, UA Trace(A) Negative mg/dL 11/04/2024 10:07 AM EDT [facility] Glucose, UA Negative Negative mg/dL 11/04/2024 10:07 AM EDT [facility] Ketones, UA Negative Negative mg/dL 11/04/2024 10:07 AM EDT [facility] Bilirubin, UA Negative Negative 11/04/2024 10:07 AM EDT [facility] Blood, UA Large(A) Negative 11/04/2024 10:07 AM EDT [facility] Nitrite, UA Negative Negative 11/04/2024 10:07 AM EDT [facility] Urobilinogen, UA <2.0 0.2 - 1.9 mg/dL 11/04/2024 10:07 AM EDT [facility] Leukocyte Esterase, UA Negative Negative 11/04/2024 10:07 AM EDT [facility] RBC, UA >100(H) 0 - 3 /HPF 11/04/2024 10:07 AM EDT [facility] WBC, UA 2 0 - 5 /HPF 11/04/2024 10:07 AM EDT [facility] Bacteria, UA Rare(A) None Seen /HPF 11/04/2024 10:07 AM EDT [facility] Hyaline Casts, UA 3(H) 0 - 2 /LPF 11/04/2024 10:07 AM T [facility] Urine 11/04/2024 8:46 AM EDT 11/04/2024 9:33 AM EDT Yareli Zaragoza DOOR MACHINE OPERATOR URINE ORDERABLES Final Re sult [facility] [address] [place] [address], [facility] documented in this encounter Visit Diagnoses [...] documented as of this encounter Care Teams Dentofacial Orthopedics Dentist Relationship Specialty Start Date End Date Enedina Mcguire NP [address] [place] [address] PCP - General Internal Medicine 10/05/24 Maureen Pantoja, ЮЛИЯ Txp Post Coordinator Transplant Hepatology 10/28/24 documented as of this encounter
--- OUTSIDE RECORDS SUMMARY | 2024-11-11 08:50 | XMS_ITS | Encounter Summary ---
Author Organization [facility] Address [facility] [place] [address] Care Team Providers Care Prototype Engineer Name Role Phone Enedina Mcguire NP Primary Care Provider + [phone] Maureen Pantoja RN Unavailable Unavail able Source [...] release of HIV test results or diagnoses. [id number] Reason for Visit * Reason Comments Labs Only Encounter Details Date Type Department Care Team (Late st Contact Info) Description 11/11/2024 8:50 AM EDT Specimen [facility] Outreach Lab [address] [place] [address] Harvey Domínguez III, MD [facility] [address] [place] [address] Liver replaced by transplant ([facility]); Immunosuppressive management encounter following liver transplant ([facility]); Kidney transplant recipient Social History Tobacco [...] the past 12 months has th e [employer], oil, or water company threatened to shut [...] mg/dL 11/11/2024 10:51 AM EDT [facility] Plasma 11/11/2024 9:13 AM EDT 11/11/2024 10:19 AM EDT Caron Santos CNP LAB BLOOD ORDERABLES Denisse l Result Performing Organization Address [facility] Co de Phone Number [facility] [address] [place] [address]. [address] * (ABNORMAL) Post Kidney Transplant Urine Culture (11/11/2024 9:13 AM EDT) Culture Result Enterococcus faecium(A) [facility] Comment: <1,000 cfu/mL Identified by MALDI-TOF MS No Further Workup Midstream Urine URINE SPECIMEN / Unknown 11/11/2024 9:13 AM EDT 11/11/2024 10:17 AM EDT Caron Santos MATERIALS MANAGEMENT SUPERVISOR MICROBIOLOGY - GENERAL OR DERABLES Final Result Performing Organization Address [facility] de Phone Number [facility] [address] [place] [address]. [address] * Protein / creatinine ratio, urine (11/11/2024 9:13 AM EDT) Creatinine, Urine 71.40 mg/dL 11/11/2024 10:38 AM EDT [facility] Comment:Reference range not established for this test. Total Protein, Ur 28 mg/dL 11/11/2024 10:38 AM EDT [facility] Comment:Reference range not established for this test. Prot/Creat Ratio, Ur 0.39 ratio 11/11/2024 10:38 AM EDT [facility] Urine 11/11/2024 9:13 AM EDT 11/11/2024 10:12 AM EDT Caron Santos CNP URINE ORDERABLES Final Re sult Performing Organization Address City/[facility]/ZIP Co de Phone Number [facility] [address] * (ABNORMAL) Urinalysis w/Rfl to Microscopic (11/11/2024 9:13 AM EDT) Color, UA Straw Yellow,Straw 11/11/2024 10:36 AM EDT [facility] Clarity, UA Clear Clear 11/11/2024 10:36 AM EDT [facility] Specific [place], UA 1.015 1.005 - 1.035 11/11/2024 10:36 AM EDT [facility] pH, UA 6.0 5.0 - 8.0 11/11/2024 10:36 AM EDT [facility] Protein, UA Negative Negative mg/dL 11/11/2024 10:36 AM EDT [facility] Glucose, UA Negative Negative mg/dL 11/11/2024 10:36 AM EDT [facility] Ketones, UA Negative Negative mg/dL 11/11/2024 10:36 AM EDT [facility] Bilirubin, UA Negative Negative 11/11/2024 10:36 AM EDT [facility] Blood, UA Small(A) Negative 11/11/2024 10:36 AM EDT [facility] Nitrite, UA Negative Negative 11/11/2024 10:36 AM EDT [facility] Urobilinogen, UA <2.0 0.2 - 1.9 mg/dL 11/11/2024 10:36 AM EDT [facility] Leukocyte Esterase, UA Negative Negative 11/11/2024 10:36 AM EDT [facility] RBC, UA 13(H) 0 - 3 /HPF 11/11/2024 10:36 AM EDT [facility] WBC, UA 4 0 - 5 /HPF 11/11/2024 10:36 AM EDT [facility] Urine 11/11/2024 9:13 AM EDT 11/11/2024 10:10 AM EDT us Caron Santos MATERIALS MANAGEMENT SUPERVISOR URINE ORDERABLES Final Re sult [facility] [address] * (ABNORMAL) Differential (11/11/2024 9:13 AM EDT) Neutrophils Relative 69.3 40.0 - 80.0 % 11/11/2024 10:31 AM EDT [facility] Lymphocytes Relative 17.6 15.0 - 45.0 % 11/11/2024 10:31 AM EDT [facility] Monocytes Relative 8.5 0.0 - 12.0 % 11/11/2024 10:31 AM EDT [facility] Eosinophils Relative 2.0 0.0 - 8.0 % 11/11/2024 10:31 AM EDT [facility] Basophils Relative 2.6(H) 0.0 - 1.0 % 11/11/2024 10:31 AM EDT [facility] nRBC 0 0 - 0 /100 WBC 11/11/2024 10:31 AM EDT [facility] Neutrophils Absolute 4,920 1,520 - 8,640 /uL 11/11/2024 10:31 AM EDT [facility] Lymphocytes Absolute 1,250 570 - 4,860 /uL 11/11/2024 10:31 AM EDT [facility] Monocytes Absolute 604 0 - 1,296 /uL 11/11/2024 10:31 AM EDT [facility] Eosinophils Absolute 142 0 - 864 /uL 11/11/2024 10:31 AM EDT [facility] Basophils Absolute 185(H) 0 - 108 /uL 11/11/2024 10:31 AM EDT [facility] Whole Blood 11/11/2024 9:13 AM EDT 11/11/2024 10:19 AM EDT Narrative [facility] - 11/11/2024 10:31 AM EDT Standing orders to be drawn: Every Sunday and before 9am and prior to patient taking morning medications. Liver Transplant Fax results to [phone] Call Critical results to [phone] us Harvey Domínguez III, MD LAB BLOOD ORDERABLE S Final Result [facility] [address] [place], [place] [facility], [facility] * (ABNORMAL) CBC (11/11/2024 9:13 AM EDT) WBC 7.1 3.8 - 10.8 10E3/uL 11/11/2024 10:31 AM EDT [facility] RBC 3.42(L) 4.20 - 5.80 10E6/uL 11/11/2024 10:31 AM EDT [facility] Hemoglobin 10.6(L) 13.2 - 17.1 g/dL 11/11/2024 10:31 AM EDT [facility] Hematocrit 31.3(L) 38.5 - 50.0 % 11/11/2024 10:31 AM EDT [facility] MCV 91.5 80.0 - 100.0 fL 11/11/2024 10:31 AM EDT [facility] MCH 31.0 27.0 - 33.0 pg 11/11/2024 10:31 AM EDT [facility] MCHC 33.8 32.0 - 36.0 g/dL 11/11/2024 10:31 AM EDT [facility] RDW 20.5(H) 11.0 - 15.0 % 11/11/2024 10:31 AM EDT [facility] Platelets 308 140 - 400 10E3/uL 11/11/2024 10:31 AM EDT [facility] MPV 6.1(L) 7.5 - 11.5 fL 11/11/2024 10:31 AM EDT [facility] Whole Blood 11/11/2024 9:13 AM EDT 11/11/2024 10:19 AM EDT Narrative [facility] - 11/11/2024 10:31 AM EDT Standing orders to be drawn: Every Sunday and before 9am and prior to patient taking morning medications. Liver Transplant Fax results to [phone] Call Critical results to [phone] us Harvey Domínguez III, MD LAB BLOOD ORDERABLE S Final Result [facility] [address] [place] [address], [facility] * (ABNORMAL) Renal Function Panel w/EGFR (11/11/2024 9:13 AM EDT) Sodium 141 133 - 146 mmol/L 11/11/2024 10:51 AM EDT [facility] Potassium 4.6 3.5 - 5.3 mmol/L 11/11/2024 10:51 AM EDT [facility] Chloride 108 98 - 110 mmol/L 11/11/2024 10:51 AM EDT [facility] CO2 24 21 - 33 mmol/L 11/11/2024 10:51 AM EDT [facility] Anion Gap 9 3 - 16 mmol/L 11/11/2024 10:51 AM EDT [facility] BUN 27(H) 7 - 25 mg/dL 11/11/2024 10:51 AM EDT [facility] Creatinine 1.14 0.60 - 1.30 mg/dL 11/11/2024 10:51 AM EDT [facility] Glucose 97 70 - 100 mg/dL 11/11/2024 10:51 AM EDT [facility] Calcium 8.6 8.6 - 10.3 mg/dL 11/11/2024 10:51 AM EDT [facility] Phosphorus 4.4 2.1 - 4.7 mg/dL 11/11/2024 10:51 AM EDT [facility] Albumin 3.8 3.5 - 5.7 g/dL 11/11/2024 10:51 AM EDT [facility] Osmolality, Calculated 297 278 - 305 mOsm/kg 11/11/2024 10:51 AM EDT [facility] EGFR 83 11/11/2024 10:51 AM EDT [facility] Comment:As of 2021, the estimated [...] morning medications. Liver Transplant Fax results to [phone] Call Critical results to [phone] DO NOT REPLACE RENAL PANEL or HEPATIC FUNCTION PANEL w/ CMP, BMP or HEPATIC PROFILE us Harvey Domínguez III, MD LAB BLOOD ORDERABLE S Final Result [facility] [address] [place] [address], [facility] * (ABNORMAL) Hepatic Function Panel (11/11/2024 9:13 AM EDT) Total Bilirubin 1.0 0.0 - 1.5 mg/dL 11/11/2024 10:51 AM EDT [facility] Bilirubin, Direct 0.39 0.00 - 0.40 mg/dL 11/11/2024 10:51 AM EDT [facility] AST 15 13 - 39 U/L 11/11/2024 10:51 AM EDT [facility] ALT 26 7 - 52 U/L 11/11/2024 10:51 AM EDT [facility] Alkaline Phosphatase 125 36 - 125 U/L 11/11/2024 10:51 AM EDT [facility] Total Protein 5.9(L) 6.4 - 8.9 g/dL 11/11/2024 10:51 AM EDT [facility] Albumin 3.8 3.5 - 5.7 g/dL 11/11/2024 10:51 AM EDT [facility] Bilirubin, Indirect 0.61 0.00 - 1.10 mg/dL 11/11/2024 10:51 AM EDT [facility] Plasma 11/11/2024 9:13 AM EDT 11/11/2024 10:19 AM EDT Narrative [facility] - 11/11/2024 10:51 AM EDT Standing orders to be drawn: Every Sunday and before 9am and prior to patient taking morning medications. Liver Transplant Fax results to [phone] Call Critical results to [phone] DO NOT REPLACE RENAL PANEL or HEPATIC FUNCTION PANEL w/ CMP, BMP or HEPATIC PROFILE Harvey Domínguez III, MD LAB BLOOD ORDERABLE S Final Result Performing Organization Address City/[facility] Co de Phone Number [facility] [address] [facility]. [address] * Tacrolimus level (11/11/2024 9:13 AM EDT) [facility] Tacrolimus (LC-MS) 10.4 3.0 - 15.0 ng/mL 11/11/2024 1:22 PM EDT [facility] Comment:Performed via liquid chromatography tandem [...] 11/11/2024 10:19 AM EDT Narrative [facility] - 11/11/2024 1:22 PM EDT Standing orders to be drawn: Every Sunday and before 9am and prior to patient taking morning medications. Liver Transplant Fax results to [phone] Call Critical results to [phone] Harvey Domínguez III, MD LAB BLOOD ORDERABLE S Final Result Performing Organization Address City/[facility]/ZIP Co de Phone Number [facility] [address] documented in this encounter Visit Diagnoses [...] documented as of this encounter Care Teams Prototype Engineer Relationship Specialty Start Date End Date Enedina Mcguire NP [address] [place] [address] PCP - General Internal Medicine 10/05/24 Maureen Pantoja, RN Txp Post Coordinator Transplant Hepatology 10/28/24 documented as of this encounter
--- OUTSIDE RECORDS SUMMARY | 2024-11-11 09:30 | XMS_ITS | Encounter Summary ---
Author Organization [facility] Address [address] [place] [address] Care Team Providers Care Tank Truck Operator Name Role Phone Enedina Mcguire NP Primary Care Provider + [phone] Maureen Pantoja RN Unavailable Unavail able Source [...] release of HIV test results or diagnoses. [id number] Health Encounter Details Date Type Department Care Team (Late st Contact Info) Description 11/11/2024 9:30 AM EDT Office Visit [facility] Psychiatry Transplant at [facility] [address] [facility] [address] [place] [address] Craig Warren PsyD [address] [facility] [address] [place] [address] PTSD (post-traumatic stress disorder) (Primary [...] In the past 12 months has th [employer], [employer], or [employer] threatened to shut off services in your [...] alcohol and CKD IIIb/IV. Seen by this radio news writer for pre-surgical evaluation. PMH includes PTSD [...] documented as of this encounter Care Teams Tank Truck Operator Relationship Specialty Start Date End Date Enedina Mcguire NP [address] [place] [address] PCP - General Internal Medicine 10/05/24 Maureen Pantoja, RN Txp Post Coordinator Transplant Hepatology 10/28/24 documented as of this encounter
--- OUTSIDE RECORDS SUMMARY | 2024-11-11 10:00 | XMS_ITS | Encounter Summary ---
Author Organization [facility] Address [address] [place] [address] Care Team Providers Care Seismograph Computer Name Role Phone Enedina Mcguire NP Primary Care Provider + [phone] Maureen Pantoaj RN Unavailable Unavail able Source Comments This [...] release of HIV test results or diagnoses. [id number] Reason for Visit * Reason Comments Liver Transplant Follow-up Encounter Details Date Type Department Care Team (Late st Contact Info) Description 11/11/2024 10:00 AM EDT Office Visit [facility] Liver Transplant at [place] [address] [place] [address] Cosmo Pacheco MD [address] [place], [place] [address] Surgery [place] [address] Harvey Domínguez III, MD [address] [place] [address] 3200 Transplant [place] [address] Encounter for therapeutic drug monitoring [...] the past 12 months has th e [employer], oil, or water company threatened to shut [...] living in a longterm (including now)? No 10/29/2024 Yearly Questionnaire Answer [...] = 12 units lancets (ACCU-CHEK SOFTCLIX LANCETS) [facility] Use to test blood sugar up to [...] times a day. naloxone (NARCAN) 4 mg/actuation [place] Apply 1 spray in one nostril [...] Nutrition: patient continues close f/u w/ transplant environmental conflict manager. - Bone health: Vit D level to be drawn ~POD#90. - Labs: Labs (CBC w/ diff, renal panel, liver panel, tacro level) twice a week. Lipid panel, [id number] Vit D level to be drawn at POD#90, HgbA1C and Vit D level to be drawn at POD#180. - Follow up: RTC 2 weeks Kemar Sahni MD, Fellow, Multiorgan Abdominal Transplant Surgery. [facility]. [1] Allergies Allergen Reactions Adhesive [...] documented as of this encounter Care Teams Seismograph Computer Relationship Specialty Start Date End Date Enedina Mcguire NP [address] [place] [address] PCP - General Internal Medicine 10/05/24 Maureen Pantoja, RN Txp Post Coordinator Transplant Hepatology 10/28/24 documented as of this encounter
--- OUTSIDE RECORDS SUMMARY | 2024-11-11 10:30 | XMS_ITS | Encounter Summary ---
Author Organization [facility] Address [address] [place] [address] Care Team Providers Care Venetian Blind Tape Cutter Name Role Phone Enedina Mcguire NP Primary Care Provider [phone] Maureen Pantoja RN Unavailable Unavail able Source [...] release of HIV test results or diagnoses. [id number] Reason for Visit * Reason Comments Kidney Transplant Follow-up Encounter Details Date Type Department Care Team (Late st Contact Info) Description 11/11/2024 10:30 AM EDT Office Visit [facility] Liver Transplant at [facility] [address] [facility] [address] [place] [address] Unknown, Attending Provider Seble Colon [address] [facility], [facility] [address] [place] [address] Kidney replaced by transplant (Primary [...] Unknown (07/14/2024) Received from [facility] Exercise Vital Sign Days of Exercise per Week: Patient unable to answer Minutes of Exercise per Session: Not on file Stress: Patient Unable To Answer (07/14/2024) Received from [facility] Tajik [place] of Occupational Health - Occupational Stress Questionnaire Feeling of Stress : Patient unable to answer Social Connections: Patient Unable To Answer (07/14/2024) Received from [facility] Social Connection and Isolation Panel [NHANES] Frequency of Communication with Friends and Family: Patient unable to answer Frequency of Social Gatherings with Friends and Family: Patient unable to answer Attends Anabaptist Services: Patient unable to answer Active Member [...] Lastdose 11/26/24 blood sugar diagnostic (GLUCOSE BLOOD) [facility] Use to test blood sugar up to 4 times a day. blood-glucose meter (TRUE METRIX GLUCOSE METER) [facility] Use [...] times a day. naloxone (NARCAN) 4 mg/actuation [place] Apply 1 spray in one nostril if [...] Results Component Value Date PTH 36.0 10/25/2024 [id number] 7.1 (L) 10/08/2024 Hemoglobin A1C: Lab Results [...] documented as of this encounter Care Teams Venetian Blind Tape Cutter Relationship Specialty Start Date End Date Enedina Mcguire NP [address] [place] [address] PCP - General Internal Medicine 10/05/24 Maureen Pantoja, RN Txp Post Coordinator Transplant Hepatology 10/28/24 documented as of this encounter
--- OUTSIDE RECORDS SUMMARY | 2024-11-25 09:00 | XMS_ITS | Encounter Summary ---
Author Organization [facility] Address [address] [place] [address] Care Team Providers Care Dumper Mold Cleaner Name Role Phone Enedina Mcguire NP Primary Care Provider + [phone] Maureen Pantoja RN Unavailable Unavail able Source [...] release of HIV test results or diagnoses. [id number] Health Encounter Details Date Type Department Care Team (Late st Contact Info) Description 11/25/2024 9:00 AM EDT Procedure visit [facility] Urology at [place] [facility] [address] [facility] [address] [place] [address] Julieta Rogers PA 222 [facility] [address] [place] [address] Retained ureteral stent of transplanted kidney ([facility]-HCC) (Primary Dx) Social History Tobacco Use Types [...] the past 12 months has th e [employer], [employer], oil, or water company threatened to shut [...] used for procedure: Flex Uro Loaner [address] [facility] Urology Flexible Cystoscope Log Cystoscope Label Serial Number Model Flex Uro 1 [id number] Olympus CYF-VHR Flex Uro 2 2527149 Olympus CYF Type V2R Flex Uro 3 7263481 Olympus CYF Type V2R Flex Uro 4 6159539 Olympus CYF Type V2R Flex Uro 5 1050389 Olympus CYF Type V2R Flex Uro 6 1198875 Olympus CYF Type V2R Flex Uro 7 1391242 CYF VHR Flex Uro 8 7942681 CYF VHR Flex Uro 9 3279950 CYF VHR Flex Uro 10 3893336 CYF VHR Flex Uro 11 6285924 CYF VHR Flex Uro 12 [id number] CYF VHR Uro Loaner 12 [id number] CYF VHR Uro Loaner 13 [id number] CYF VHR Uro Loaner 14 [id number] CYF VHR * NAA Merida - 11/25/2024 [...] documented as of this encounter Care Teams Dumper Mold Cleaner Relationship Specialty Start Date End Date Enedina Mcguire NP [address] [place] [address] PCP - General Internal Medicine 10/05/24 Maureen Pantoja, ЮЛИЯ Txp Post Coordinator Transplant Hepatology 10/28/24 documented as of this encounter
--- OUTSIDE RECORDS SUMMARY | 2024-11-25 10:20 | XMS_ITS | Encounter Summary ---
Author Organization [facility] Address [address] [place] [address] Care Team Providers Care Warpman Name Role Phone Enedina Mcguire NP Primary Care Provider + [phone] Alicia Rankin RN Unavailable Unavail able Source [...] release of HIV test results or diagnoses. [id number] Reason for Visit * Reason Comments Liver Transplant Follow-up Encounter Details Date Type Department Care Team (Late st Contact Info) Description 11/25/2024 10:20 AM EDT Office Visit [facility] Liver Transplant at [address] [place] [address] Lydia Sanchez MD [address] [place] [address] [place] [address] Encounter for therapeutic drug monitoring [...] the past 12 months has th e [employer], [employer], oil, or water company threatened to shut [...] Nutrition: patient continues close f/u w/ transplant associate store manager. - Bone health: Vit D level to be drawn ~POD#90. - Labs: Labs (CBC w/ diff, renal panel, liver panel, tacro level) twice a week. Lipid panel, [id number] Vit D level to be drawn at POD#90, HgbA1C and Vit D level to be drawn at POD#180. - Follow up: RTC 2 weeks Trinidad Godinez MD, Fellow, Multiorgan Abdominal Transplant Surgery. [facility]. [1] Allergies Allergen Reactions Adhesive Itching [...] per week. Follow up in 2 weeks. [place] out today. Stop fluconazole, eliquis, and torsemide. [...] therapeutic drug monitoring- Primary S/P liver transplant ([facility]-H[facility]) Hypomagnesemia Disorders of magnesium metabolism Kidney transplant [...] documented as of this encounter Care Teams Warpman Relationship Specialty Start Date End Date Enedina Mcguire NP [address] [place] [address] PCP - General Internal Medicine 10/05/24 Alicia Rankin, ЮЛИЯ Txp Post Coordinator Transplant Hepatology 10/28/24 documented as of this encounter
--- OUTSIDE RECORDS SUMMARY | 2024-11-25 10:50 | XMS_ITS | Encounter Summary ---
Author Organization [facility] Address [address] [place] [address] Care Team Providers Care Extension Work Director Name Role Phone Enedina Mcguire NP Primary Care Provider + [phone] Maureen Pantoja RN Unavailable Unavail able Source [...] release of HIV test results or diagnoses. [id number] Reason for Visit * Reason Comments Liver Transplant Follow-up Encounter Details Date Type Department Care Team (Late st Contact Info) Description 11/25/2024 10:50 AM EDT Office Visit [place] Liver Transplant at [place] [address] [address] [place] [address] Leisa Juarez MD [address] [place] [address] 2nd [place] [address] Se[facility] Colon [facility] [address] [place] [address] NADIYA (acute kidney injury) ([facility]) (Primary Dx); Kidney replaced by transplant; [...] the past 12 months has th e [employer], [employer], oil, or water company threatened to shut [...] Hypertension Other hyperlipidemia 07/26/2024 Renal cell carcinoma ([facility]) Thrombocytopenia ([facility]) Thyroid disease Surgical History: Past Surgical [...] Low Risk (07/09/2024) Received from [facility] Overall Financial Resource Strain (CARDIA) Difficulty [...] Answer (07/14/2024) Received from [facility] Austrian [place] of Occupational Health - Occupational Stress Questionnaire [...] times a day. naloxone (NARCAN) 4 mg/actuation [place] Apply 1 spray in one nostril if [...] Results Component Value Date PTH 36.0 10/25/2024 [id number] 7.1 (L) 10/08/2024 Hemoglobin A1C: Lab Results [...] documented as of this encounter Care Teams Extension Work Director Relationship Specialty Start Date End Date Enedina Mcguire NP [address] [place], [place] [id number] PCP - General Internal Medicine 10/05/24 Maureen Pantoja, RN Txp Post Coordinator Transplant Hepatology 10/28/24 documented as of this encounter
--- OUTSIDE RECORDS SUMMARY | 2024-12-02 07:56 | XMS_ITS | Encounter Summary ---
Author Organization [facility] Address [address] [place] [address] Care Team Providers Care Sack Maker Name Role Phone Enedina Mcguire NP Primary Care Provider [phone] Maureen Pantoja RN Unavailable Unavail able Source [...] release of HIV test results or diagnoses. [id number] Reason for Visit * Reason Comments Medication Management Requesting RX for New Medication Encounter Details Date Type Department Care Team (Late st Contact Info) Description 10/21/2024 Telephone [facility] [address] [place] [phone] Gerri Peterson MD [address] [place] [address] Medication Management (Requesting RX for [...] In the past 12 months has th [employer], oil, or [employer] threatened to shut off services in [...] Pt called. States he was discharged from [facility] on 10/17 with instructions to contact PCP to start Rx Torsemide 20 mg one tablet a day. PCP is out of town and was advised by financial sales manager in office to contact gastro MD to obtain Rx. Pt states he is retaining 30 pounds of fluid and needs MD to send a prescription or return call dali. Pt can be reached at [phone] documented in this encounter Plan of [...] documented as of this encounter Care Teams Sack Maker Relationship Specialty Start Date End Date Enedina Mcguire NP [address] [place] [address] PCP - General Internal Medicine 10/05/24 Maureen Pantoja, RN Txp Post Coordinator Transplant Hepatology 10/28/24 documented as of this encounter
--- OUTSIDE RECORDS SUMMARY | 2024-12-02 07:56 | XMS_ITS | Encounter Summary ---
Author Organization [facility] Address [address] [place] [address] Care Team Providers Care Green Hide Inspector Name Role Phone Enedina Mcguire NP Primary Care Provider [phone] Source Comments This information has been disclosed [...] release of HIV test results or diagnoses. [id number] Encounter Details Date Type Department Care Team (Late st Contact Info) Description 10/17/2024 Chart Note [facility] Kidney Transplant at [address] [place] [phone] Anny Cote, RN Copy of HLA [...] In the past 12 months has [employer], gas, oil, or water [employer] threatened to shut off services in your [...] as of this encounter Care Teams Green Hide Inspector Relationship Specialty Start Date End Date Enedina Mcguire NP [address] [place] [address] PCP - General Internal Medicine 10/05/24 documented as of this encounter
--- OUTSIDE RECORDS SUMMARY | 2024-12-02 07:56 | XMS_ITS | Encounter Summary ---
Author Organization [facility] Address [address] [place] [address] Care Team Providers Care Woodwork Salvage Inspector Name Role Phone Enedina Mcguire NP Primary Care Provider [phone] Maureen Pantoja RN Unavailable Unavail able Source [...] release of HIV test results or diagnoses. [id number] Reason for Visit * Reason Comments Medication Refill Refill Request 1st A ttempt Encounter Details Date Type Department Care Team (Late st Contact Info) Description 10/21/2024 Refill [facility] [address] [place] [phone] Gerri Peterson MD [address] [place] [address] Social History Tobacco Use Types Packs/Day Years Used Date Smoking Tobacco: Former Cigarettes Smokeless Tobacco: Current Alcohol Use Standard Drinks/Week Comments Yes 0 (1 standard drink = 0.6 oz pure alcohol) History of alcohol abuse, reports no use in 3 week- typically endorses use as 4 glasses of wine a days Utilities Answer Date Recorded In the past 12 months has [employer], gas, oil, or water [employer] threatened to shut off services in your [...] documented as of this encounter Care Teams Woodwork Salvage Inspector Relationship Specialty Start Date End Date Enedina Mcguire NP [address] [place] [address] PCP - General Internal Medicine 10/05/24 Maureen Pantoja, ЮЛИЯ Txp Post Coordinator Transplant Hepatology 10/28/24 documented as of this encounter
--- OUTSIDE RECORDS SUMMARY | 2024-12-02 07:56 | XMS_ITS | Encounter Summary ---
Author Organization [facility] Address [address] [place] [address] Care Team Providers Care Memorial Adviser Name Role Phone Enedina Mcguire NP Primary Care Provider + [phone] Maureen Pantoja RN Unavailable Unavail able Source [...] release of HIV test results or diagnoses. [id number] Health Encounter Details Date Type Department Care Team (Late st Contact Info) Description 11/27/2024 Chart Note [facility] Liver Transplant at [address] [place] [phone] Marlene Ro MA FK Pending 11/27 Labs Social History Tobacco Use Types Packs/Day Years Used Date Smoking Tobacco: Former Cigarettes Smokeless Tobacco: Current Alcohol Use Standard Drinks/Week Comments Yes 0 (1 standard drink = 0.6 oz pure alcohol) History of alcohol abuse, reports no use in 3 week- typically endorses use as 4 glasses of wine a days Utilities Answer Date Recorded In the past 12 months has e [employer], gas, oil, or water [employer] threatened to shut off services in your [...] Progress Notes * Marlene Ro MA - 11/27/2024 11:08 AM EDT FK Pending 11/27 Labs documented in this encounter Plan of Treatment Not on file documented as of this encounter Procedures Procedure Name Priority Date/Time Associated Diagnosis Comments HEPATIC FUNCTION PANEL Routine 11/27/2024 7:50 AM EDT TACROLIMUS LEVEL Routine 11/27/2024 7:50 AM EDT PROTIME-INR Routine 11/27/2024 7:50 AM EDT CBC AND DIFFERENTIAL Routine 11/27/2024 7:50 AM EDT RENAL FUNCTION PANEL W/O EGFR Routine 11/27/2024 7:50 AM EDT documented in this encounter Results * Tacrolimus level (11/27/2024 7:50 AM EDT) Tacrolimus Lvl 9.9 6 - 15 ng/mL Whole Blood Historical Provider LAB BLOOD ORDERABLES Denisse l Result * (ABNORMAL) Renal Function Panel w/o EGFR (11/27/2024 7:50 AM EDT) Glucose 104 mg/dL BUN 42(A) 4 - 21 mg/dL CO2 22 13 - 22 mmol/L Creatinine 1.10 0.6 - 1.3 mg/dL Potassium 4.4 3.4 - 5.3 mmol/L Sodium 139 137 - 147 mmol/L Chloride 103 99 - 108 mmol/L Phosphorus 5.8(A) 2.5 - 4.9 mg/dL Calcium 10.5 8.7 - 10.7 mg/dL EGFR 74 mg/dL Albumin 4.3 3.5 - 5.0 g/dL Blood Narrative Resulting Agency Comment [facility] Result [facility] Provider LAB BLOOD ORDERABLES Denisse l Result * Protime-INR (11/27/2024 7:50 AM EDT) Pathologist [facility] INR 0.93 0.9 - 1.1 Plasma Narrative Resulting Agency Comment [facility] Result [facility] Provider LAB BLOOD ORDERABLES Denisse l Result * (ABNORMAL) CBC and differential (11/27/2024 7:50 AM EDT) [facility] Hemoglobin 10.2(A) 13.5 - 17.5 g/dL Hematocrit 31.3(A) 41 - 53 % RDW 17.7(A) 11.5 - 14.5 % Lymphocytes Absolute 1.2 / L Monocytes Absolute 0.4 / L Eosinophils Absolute 0.0 / L Basophils Absolute 0.0 / L Neutrophils Relative 74.0 46 - 78 % Lymphocytes Relative 18.0 18 - 52 % Monocytes Relative 6.3 3 - 10 % Eosinophils Relative 0.6 0 - 6 % Basophils Relative 0.6 0 - 3 % Neutrophils Absolute 4.9 / L MCH 30.2 26.0 - 34.0 pg MCHC 32.6 30 - 37 g/dL MCV 92.6 82.0 - 108.0 fL Platelets 158 K/ L RBC 3.38(A) 4.50 - 5.90 10^6/ L WBC 6.6 10^3/mL Blood Narrative Resulting Agency Comment [facility] Result [facility] Provider LAB BLOOD ORDERABLES Denisse l Result * Hepatic Function Panel (11/27/2024 7:50 AM EDT) Pathologist [facility] Bilirubin, Direct 0.4 Bilirubin, Indirect 0.1 Alkaline Phosphatase 149 U/L ALT 19 U/L AST 13 U/L Total Bilirubin 0.5 0.1 - 1.4 mg/dL Total Protein 6.4 6.4 - 8.2 g/dL Plasma Narrative Resulting Agency Comment 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
--- OUTSIDE RECORDS SUMMARY | 2024-12-02 07:56 | XMS_ITS | Encounter Summary ---
Author Organization [facility] Address [address] [place] [address] Care Team Providers Care Battery Assembler Plastic Name Role Phone Enedina Mcguire NP Primary Care Provider [phone] Source Comments This information has been disclosed [...] release of HIV test results or diagnoses. [id number] [facility] Encounter Details Date Type Department Care Team (Late st Contact Info) Description 10/17/2024 Chart Note [facility] Kidney Transplant at [address] [place] [phone] Anny Cote RN Social History Tobacco Use [...] Recorded In the past 12 months has [employer], gas, oil, or water [employer] threatened to shut off services in your [...] Date Enedina Mcguire NP [address] [place] [address] PCP - General Internal Medicine 10/05/24 documented as of this encounter
--- OUTSIDE RECORDS SUMMARY | 2024-12-02 07:56 | XMS_ITS | Encounter Summary ---
Author Organization [facility] Address [address] [place] [address] Care Team Providers Care Manager Emergency Name Role Phone Enedina Mcguire NP Primary Care Provider + [phone] Maureen Pantoja RN Unavailable Unavail able Source [...] release of HIV test results or diagnoses. [id number] Health Encounter Details Date Type Department Care Team (Late st Contact Info) Description 11/10/2024 Orders Only [facility] Liver Transplant at [address] [place] [phone] Maureen Pantoja, ЮЛИЯ Liver transplant recipient ([facility]) (Primary Dx); Kidney transplant recipient; Immunosuppressive management encounter following liver transplant ([facility]) Social History Tobacco Use Types Packs/Day Years Used Date Smoking Tobacco: Former Cigarettes Smokeless Tobacco: Current Alcohol Use Standard Drinks/Week Comments Yes 0 (1 standard drink = 0.6 oz pure alcohol) History of alcohol abuse, reports no use in 3 week- typically endorses use as 4 glasses of wine a days Utilities Answer Date Recorded In the past 12 months has [email or web address], gas, oil, or water [employer] threatened to shut off services in your [...] Immunosuppressive management encounter following liver transplant (CMS-HCC) documented in this encounter Additional Health Concerns Infection Onset Date Last Indicated Resolved Time 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
--- OUTSIDE RECORDS SUMMARY | 2024-12-02 07:56 | XMS_ITS | Encounter Summary ---
Author Organization [facility] Address [address] [place] [address] Care Team Providers Care Residential Gas Heat Technician Name Role Phone Enedina Mcguire NP Primary Care Provider + [phone] Maureen Pantoja RN Unavailable Unavail able Source [...] release of HIV test results or diagnoses. [id number] Reason for Visit * Reason Comments Results Encounter Details Date Type Department Care Team (Riky st Contact Info) Description 11/27/2024 Telephone [facility] Liver Transplant at [address] [phone] Maureen Pantoja, RN Results Social [...] In the past 12 months has e [employer], gas, oil, or water [employer] threatened to shut off services in [...] Progress Notes * Maureen Pantoja RN - 12/01/2024 3:53 PM EDT FK 9.9 Will continue to monitor as per previously determined lab intervals. * Maureen Pantoja RN - 11/27/2024 4:35 PM EDT Lab results from 11/27/24 reviewed. Cr improved to 1.10 (from 1.59); BUN 42 (from 43). LFTs stable. Alk phos 149 (from 198) and AST/ALT . FK pending. Will follow-up. 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
--- OUTSIDE RECORDS SUMMARY | 2024-12-02 07:56 | XMS_ITS | Encounter Summary ---
Author Organization [facility] Address [address] [place] [address] Care Team Providers Care Petroleum Production Engineer Name Role Phone Enedina Mcguire NP Primary Care Provider + [phone] Maureen Pantoja RN Unavailable Unavail able Source [...] release of HIV test results or diagnoses. [id number] Health Encounter Details Date Type Department Care Team (Late st Contact Info) Description 12/01/2024 Telephone [facility] Liver Transplant at [address] [place] [phone] Gladis Chisholm MA Social History Tobacco Use Types Packs/Day Years Used Date Smoking Tobacco: Former Cigarettes Smokeless Tobacco: Current Alcohol Use Standard Drinks/Week Comments Yes 0 (1 standard drink = 0.6 oz pure alcohol) History of alcohol abuse, reports no use in 3 week- typically endorses use as 4 glasses of wine a days Utilities Answer Date Recorded In the past 12 months has [employer], gas, oil, or water [employer] threatened to shut off services in your [...] Progress Notes * Marlene Ro MA - 12/01/2024 4:24 PM EDT LVM asking pt to call [phone] to let the team know if he will be going to the lab tomorrow morning, asI have tried to fax his orders through [employer] but was unsuccessful. The plan is to send him a copy via but wanted confirmation that he had a way to print them out. * Gladis Chisholm MA - 12/01/2024 3:08 PM EDT Pt called to request that an order for a urinalysis be put in for him to get done at [facility]. Please advise. 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
--- OUTSIDE RECORDS SUMMARY | 2024-12-02 07:56 | XMS_ITS | Encounter Summary ---
Author Organization [facility] Address [address] [place] [address] Care Team Providers Care Hogshead Filler Name Role Phone Enedina Mcguire NP Primary Care Provider + [phone] Maureen Pantoja RN Unavailable Unavail able Source [...] release of HIV test results or diagnoses. [id number] Health Encounter Details Date Type Department Care Team (Late st Contact Info) Description 11/10/2024 Orders Only [facility] Liver Transplant at [address] [place] [address] Maureen Pantoja, RN Social History Tobacco Use [...] Recorded In the past 12 months has [employer], gas, oil, or water [employer] threatened to shut off services in [...] documented as of this encounter Care Teams Hogshead Filler Relationship Specialty Start Date End Date Enedina Mcguire NP [address] [place] [address] PCP - General Internal Medicine 10/05/24 Maureen Pantoja, ЮЛИЯ Txp Post Coordinator Transplant Hepatology 10/28/24 documented as of this encounter
--- OUTSIDE RECORDS SUMMARY | 2024-12-02 07:57 | XMS_ITS | Encounter Summary ---
Author Organization [facility] Address [facility] [place] [address] Care Team Providers Care Lacing Cutter Name Role Phone Enedina Mcguire NP Primary Care Provider [phone] Source Comments This information has been disclosed [...] release of HIV test results or diagnoses. [id number] Health Encounter Details Date Type Department Care Team (Late st Contact Info) Description 10/20/2024 Orders Only [facility] [address] [place] [address] Abdulkadir Gaspar MD [address] [facility] [address] [place] [address] Social History Tobacco Use Types Packs/Day Years Used Date Smoking Tobacco: Former Cigarettes Smokeless Tobacco: Current Alcohol Use Standard Drinks/Week Comments Yes 0 (1 standard drink = 0.6 oz pure alcohol) History of alcohol abuse, reports no use in 3 week- typically endorses use as 4 glasses of wine a days Utilities Answer Date Recorded In the past 12 months has [employer], gas, oil, or water company threatened to [...] Performing Organization Address [facility] Co de Phone Number [facility] [address] [place], [place] [address] [place] [address] * [facility]ox - ABO Typing Report (10/20/2024 5:03 PM EDT) 10/20/2024 5:03 PM EDT us Abdulkadir Gaspar MD LAB BLOOD ORDERABLES Final Resul t Performing Organization Address [facility] Co de Phone Number [facility] [address] [place] [address] documented in this encounter Visit Diagnoses Not on filedocumented in this encounter Additional Health Concerns Infection Onset Date Last Indicated Resolved Time C. difficile 09/09/2024 09/09/2024 10/27/2024 8:30 AM EDT Assessment Noted Time PHQ-9 Depression Total Score: 17 025 11:00 AM EDT documented as of this encounter Care Teams Lacing Cutter Relationship Specialty Start Date End Date Enedina Mcguire NP [address] [place] [address] PCP - General Internal Medicine 10/05/24 documented as of this encounter
--- OUTSIDE RECORDS SUMMARY | 2024-12-02 07:57 | XMS_ITS | Encounter Summary ---
Author Organization [facility] Address [address] [place] [address] Care Team Providers Care Machining Engineer Name Role Phone Enedina Mcguire NP Primary Care Provider [phone] Source Comments This information has been disclosed [...] release of HIV test results or diagnoses. [id number] Health Encounter Details Date Type Department Care Team (Late st Contact Info) Description 10/20/2024 Telephone [facility] Liver Transplant at [address] [phone] Mary Butler, RN Social History Tobacco Use [...] Recorded In the past 12 months has [employer], gas, oil, or water [employer] threatened to shut off services in your [...] Hep C donors. He'll also go to [facility] later today vs tomorrow morning for follow up MELD labs that I'll need in order to list him. All questions answered at this time. Lab orders faxed to [facility] at [phone] and emailed to patient. documented in this encounter Plan of Treatment Not on file documented as of this encounter Visit Diagnoses Diagnosis Patient on waiting list for liver transplant- Primary documented in this encounter Additional Health Concerns Infection Onset Date Last Indicated Resolved Time C. difficile 09/09/2024 09/09/2024 10/27/2024 8:30 AM EDT Assessment Noted Time PHQ-9 Depression Total Score: 17 025 11:00 AM EDT documented as of this encounter Care Teams Machining Engineer Relationship Specialty Start Date End Date Enedina Mcguire NP [address] [place] [address] PCP - General Internal Medicine 10/05/24 documented as of this encounter
--- OUTSIDE RECORDS SUMMARY | 2024-12-02 07:57 | XMS_ITS | Encounter Summary ---
Author Organization [facility] Address [address] [place] [address] Care Team Providers Care Armature Winder Repair Helper Name Role Phone Enedina Mcguire NP Primary Care Provider + [phone] Maureen Pantoja RN Unavailable Unavail able Source [...] release of HIV test results or diagnoses. [id number] Health Encounter Details Date Type Department Care Team (Late st Contact Info) Description 11/07/2024 Chart Note [facility] Liver Transplant at [address] [place] [phone] Marlene Ro MA FK Pending Social History [...] Recorded In the past 12 months has [employer], gas, oil, or water [employer] threatened to shut off services in your [...] Panel w/o EGFR (11/06/2024 8:36 AM EDT) Glucose 108 mg/dL BUN 35(A) 4 - [...] 5.0 g/dL Blood Narrative Resulting Agency Comment [facility] Historical Provider LAB BLOOD ORDERABLES Denisse l Result * (ABNORMAL) CBC and differential (11/06/2024 8:36 AM EDT) Hemoglobin 9.3(A) 13.5 - 17.5 g/dL Hematocrit [...] 7.5 10^3/mL Blood Narrative Resulting Agency Comment [facility] Historical Provider LAB BLOOD ORDERABLES Denisse l Result * (ABNORMAL) Hepatic Function Panel (11/06/2024 8:36 AM EDT) Pathologist [facility] Bilirubin, Direct 0.7 Bilirubin, Indirect 0.2 Alkaline Phosphatase 142 U/L ALT 59 U/L AST 24 U/L Total Bilirubin 0.9 0.1 - 1.4 mg/dL Total Protein 5.4(A) 6.4 - 8.2 g/dL Plasma Narrative Resulting Agency Comment [facility] Historical Provider LAB BLOOD ORDERABLES Denisse l Result documented in this encounter Visit Diagnoses Not on filedocumented in this encounter Additional Health Concerns Infection Onset Date Last Indicated Resolved Time 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
--- OUTSIDE RECORDS SUMMARY | 2024-12-02 07:57 | XMS_ITS | Encounter Summary ---
Author Organization [facility] Address [address] [place] [address] Care Team Providers Care Military Pay Clerk Name Role Phone Enedina Mcguire NP Primary Care Provider [phone] Source Comments This information has been disclosed [...] release of HIV test results or diagnoses. [id number] Health Reason for Visit * Reason Comments Prescription Issue RX Clarification Req uest Encounter Details Date Type Department Care Team (Late st Contact Info) Description 10/20/2024 Telephone [facility] Office [address] [place] [phone] Gerri Peterson MD [address] [place] [address] Prescription Issue (RX Clarification Request [...] Recorded In the past 12 months has [employer], gas, oil, or water [employer] threatened to shut off services in [...] to be filled Please return call to [phone]. documented in this encounter Plan of Treatment Not on file documented as of this encounter Visit Diagnoses Not on filedocumented in this encounter Additional Health Concerns Infection Onset Date Last Indicated Resolved Time C. difficile 09/09/2024 09/09/2024 10/27/2024 8:30 AM EDT Assessment Noted Time PHQ-9 Depression Total Score: 17 05/19/2 025 11:00 AM EDT documented as of this encounter Care Teams Military Pay Clerk Relationship Specialty Start Date End Date Enedina Mcguire NP [address] [place] [address] PCP - General Internal Medicine 10/05/24 documented as of this encounter
--- OUTSIDE RECORDS SUMMARY | 2024-12-02 07:57 | XMS_ITS | Encounter Summary ---
Author Organization [facility] Address [address] [place] [address] Care Team Providers Care Binder Folder Operator Name Role Phone Enedina Mcguire NP Primary Care Provider + [phone] Maureen Pantoja RN Unavailable Unavail able Source [...] release of HIV test results or diagnoses. [id number] Health Encounter Details Date Type Department Care Team (Late st Contact Info) Description 11/20/2024 Orders Only [facility] Liver Transplant at [address] [place] [address] Maureen Pantoja, ЮЛИЯ S/P liver transplant (CMS-HCC) (Primary Dx); Immunosuppression ([facility]); Viral disease exposure; Alcohol use Social History [...] Recorded In the past 12 months has [employer], gas, oil, or water [employer] threatened [...] documented as of this encounter Results * Phosphatidylethanol Confirmation, B (11/25/2024 8:42 AM EDT) PETH 16:0/18.1 (POPETH) 14 Cutoff: 10 ng/mL 11/28/2024 8:24 AM EDT [facility] Comment: Phosphatidylethanol (PEth) homologues result interpretation [...] 2018 J. Forensic Sci) PETH 16:0/18.2 (PLPETH) 12 Cutoff: 10 ng/mL 11/28/2024 8:24 AM EDT [facility] Comment: PEth 16:0/18:2 (PLPEth) Reference ranges are not well established PEth Interpretation Positive. 11/28 8:24 AM T [facility] Comment: ADDITIONAL INFORMATION This report is [...] and Drug Administration. Test Performed by: [facility] - [address] [address] Dictating Machine Transcriber: Kathy Ortiz Ph.D.; CLIA# [id number] Whole Blood 11/25/2024 8:42 AM EDT 11/28/2024 8:24 AM EDT [facility] - 11/28/2024 8:24 AM EDT One time lab order to be collected with next set of standing liver transplant labs. Please fax all results to [phone]. Call critical results to [phone]. Harvey Domínguez III, MD LAB BLOOD ORDERABLE S Final Result Performing Organization Address City/[facility]/ZIP Co de Phone Number [facility] [address] [facility]. [address] * HIV-1 RNA, Quantitative, PCR (11/25/2024 8:42 AM EDT) Pathologist [facility] HIV 1 Copies Not Detected copies/mL 11/26/2024 10:57 AM EDT [facility] Comment:Test methodology for HIV-1 RNA quantification is an FDA-approved nucleic acid amplification assay. The Lower Limit of Quantitation (LLoQ) is 20 copies/mL. The linear range is 20- to 10,000,000 copies/mL. The Limit of Detection (LoD) is 13.2 copies/mL. The reference range is Not Detected. HIV [id number] See Note [id number] /mL 11/26/2024 10:57 AM EDT [facility] Comment:HIV-1 RNA not detect ed. Plasma 11/25/2024 8:42 AM EDT 11/25/2024 10:59 AM EDT [facility] - 11/26/2024 10:57 AM EDT One time lab order to be collected with next set of standing liver transplant labs. UNOS requirement. Please fax all results to [phone]. Call critical results to [phone]. Harvey Domínguez III, MD LAB BLOOD ORDERABLE S Final Result Performing Organization Address City/[facility]/ZIP Co de Phone Number [facility] [address]. [address] * Hepatitis C RNA, Quantitative PCR (11/25/2024 8:42 AM EDT) Pathologist [facility] International Units Not Detected IU/mL 11/27/2024 11:35 AM EDT [facility] Comment:Test methodology for HCV RNA quantification is an FDA-approved nucleic acid amplification assay. The Lower Limit of Quantitation (LLOQ) is 15 IU/mL. The linear range of the assay is 15-100,000,000 IU/mL. The Limit of Detection (LoD) is 12.0 IU/mL for EDTA plasma. The reference range is Not Detected. IU log10 See Note log 10 IU/mL 11/27/2024 11:35 AM EDT [facility] Comment:HCV RNA not detected . Plasma 11/25/2024 8:42 AM EDT 11/25/2024 10:59 AM EDT [facility] - 11/27/2024 11:35 AM EDT One time lab order to be collected with next set of standing liver transplant labs. UNOS requirement. Please fax all results to [phone]. Call critical results to [phone]. Harvey Domínguez III, MD LAB BLOOD ORDERABLE S Final Result [facility] [address] [place] [address], [facility] * Hepatitis B Virus (HBV), PCR, Quant (11/25/2024 8:42 AM EDT) Hep B Viral DNA IU/ML Not Detected IU/mL 11/28/2024 10:09 AM EDT [facility] Comment:Test methodology for HBV DNA quantification is an FDA-approved nucleic acid amplification assay. The lower limit of quantitation (LLOQ) is 10 IU/mL. The linear range of the assay is 10-1,000,000,000 IU/mL. The limit of detection (LoD) for plasma is 2.7 IU/mL. The reference range is Not Detected. log 10 HBV as IU/mL See Note log 10 IU/mL 11/28/2024 10:09 AM EDT [facility] Comment:HBV DNA not detected . Plasma 11/25/2024 8:42 AM EDT 11/25/2024 10:59 AM EDT Narrative [facility] - 11/28/2024 10:09 AM EDT One time lab order to be collected with next set of standing liver transplant labs. UNOS requirement. Please fax all results to [phone]. Call critical results to [phone]. 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
--- OUTSIDE RECORDS SUMMARY | 2024-12-02 07:57 | XMS_ITS | Encounter Summary ---
Author Organization [facility] Address [address] [place] [address] Care Team Providers Care Garageman Name Role Phone Enedina Mcguire NP Primary Care Provider + [phone] Maureen Pantoja RN Unavailable Unavail able Source [...] release of HIV test results or diagnoses. [id number] Health Encounter Details Date Type Department Care Team (Late st Contact Info) Description 11/24/2024 Orders Only [facility] Liver Transplant at [address] [place] [address] Maureen Panotja, RN Social History Tobacco Use Types Packs/Day Years Used Date Smoking Tobacco: Former Cigarettes Smokeless Tobacco: Current Alcohol Use Standard Drinks/Week Comments Yes 0 (1 standard drink = 0.6 oz pure alcohol) History of alcohol abuse, reports no use in 3 week- typically endorses use as 4 glasses of wine a days Utilities Answer Date Recorded In the past 12 months has [employer], gas, oil, or water [employer] threatened to shut off services in your [...] documented as of this encounter Care Teams Garageman Relationship Specialty Start Date End Date Enedina Mcguire NP [address] [place] [address] PCP - General Internal Medicine 10/05/24 Maureen Pantoja, ЮЛИЯ Txp Post Coordinator Transplant Hepatology 10/28/24 documented as of this encounter
--- OUTSIDE RECORDS SUMMARY | 2024-12-02 07:57 | XMS_ITS | Encounter Summary ---
Author Organization [facility] Address [address] [place] [address] Care Team Providers Care Continuing Education Director Name Role Phone Enedina Mcguire NP Primary Care Provider + [phone] Maureen Pantoja RN Unavailable Unavail able Source [...] release of HIV test results or diagnoses. [id number] Health Encounter Details Date Type Department Care Team (Late st Contact Info) Description 11/07/2024 Telephone [facility] Liver Transplant at [address] [address] Marlene Ro MA Social History [...] Recorded In the past 12 months has [employer], gas, oil, or water [employer] threatened to shut off services in [...] documented as of this encounter Care Teams Continuing Education Director Relationship Specialty Start Date End Date Enedina Mcguire NP [address] [place] [address] PCP - General Internal Medicine 10/05/24 Maureen Pantoja, ЮЛИЯ Txp Post Coordinator Transplant Hepatology 10/28/24 documented as of this encounter
--- OUTSIDE RECORDS SUMMARY | 2024-12-02 07:57 | XMS_ITS | Encounter Summary ---
Author Organization [facility] Address [address] [place] [address] Care Team Providers Care Sales Performance Analyst Name Role Phone Enedina Mcguire NP Primary Care Provider + [phone] Maureen Pantoja RN Unavailable Unavail able Source [...] release of HIV test results or diagnoses. [id number] Reason for Visit * Reason Comments Medication Refill Refill Request 1st A ttempt Encounter Details Date Type Department Care Team (Late st Contact Info) Description 10/20/2024 Refill [facility] Gastroenterology at [facility] Office [address] [place] [address] Gerri Peterson MD [address] [place] [address] Social History Tobacco Use Types Packs/Day Years Used Date Smoking Tobacco: Former Cigarettes Smokeless Tobacco: Current Alcohol Use Standard Drinks/Week Comments Yes 0 (1 standard drink = 0.6 oz pure alcohol) History of alcohol abuse, reports no use in 3 week- typically endorses use as 4 glasses of wine a days Utilities Answer Date Recorded In the past 12 months has [employer], gas, oil, or water [employer] threatened to shut off services in your [...] need filled today. PHARMACY & PHONE #: [facility] [address] [place], [place] [address] [address] DATE OF LAST APPT: 09/02/2024 Gerri Peterson [...] as of this encounter Care Teams Sales Performance Analyst Relationship Specialty Start Date End Date Enedina Mcguire NP [address] [place] [address] PCP - General Internal Medicine 10/05/24 Maureen Pantoja, RN Txp Post Coordinator Transplant Hepatology 10/28/24 documented as of this encounter
--- OUTSIDE RECORDS SUMMARY | 2024-12-02 07:57 | XMS_ITS | Encounter Summary ---
Author Organization [facility] Address [facility] [place] [address] Care Team Providers Care Doll Wig Maker Rooted Hair Name Role Phone Enedina Mcguire NP Primary Care Provider + [phone] Maureen Pantoja RN Unavailable Unavail able Source [...] release of HIV test results or diagnoses. [id number] Reason for Visit * Reason Comments After Hours Call Passing blood throug h stool states started this morning has had 3 bloody bowel movements kidney and liver txp done 2 weeks ago Encounter Details Date Type Department Care Team (Late st Contact Info) Description 11/09/2024 Telephone [facility] [address] [place] [address] Unknown, Attending Provider After Hours [...] Recorded In the past 12 months has [employer], gas, oil, or water [employer] threatened to shut off services in your [...] Caller to Patient and Callback: dionna anderson [phone] Patient of: liver txp txp team Nature of Call: Passing blood through stool states started this morning has had 3 bloody bowel movements kidney and liver txp done 2 weeks ago Credentialing Specialist Provider Contacted: del turner Time and Method of Contact: via cell phone 1133 am connected coordinator to dionna at 1135 am Advise Caller: If provider does not call back within 30 minutes, please call us back. ROUTE TELEPHONE NOTE - Follow Qgenda and/or Route Directly to Provider. COPY this note into [facility] Teams chat. 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
--- OUTSIDE RECORDS SUMMARY | 2024-12-02 07:57 | XMS_ITS | Encounter Summary ---
Author Organization [facility] Address [address] [place] [address] Care Team Providers Care Wrapper And Preserver Name Role Phone Enedina Mcguire NP Primary Care Provider + [phone] Maureen Pantoja RN Unavailable Unavail able Source [...] release of HIV test results or diagnoses. [id number] Health Encounter Details Date Type Department Care Team (Late st Contact Info) Description 11/21/2024 Orders Only [facility] [address] [facility] [address] [place] [address] Vasile Gordillo MA Social History [...] Recorded In the past 12 months has [employer], gas, oil, or water [employer] threatened to shut off services in your [...] documented as of this encounter Care Teams Wrapper And Preserver Relationship Specialty Start Date End Date Enedina Mcguire NP [address] [place] [address] PCP - General Internal Medicine 10/05/24 Maureen Pantoja, ЮЛИЯ Txp Post Coordinator Transplant Hepatology 10/28/24 documented as of this encounter
--- OUTSIDE RECORDS SUMMARY | 2024-12-02 07:57 | XMS_ITS | Encounter Summary ---
Author Organization [facility] Address [address] [place] [address] Care Team Providers Care Buyer Broker Name Role Phone Enedina Mcguire NP Primary Care Provider + [phone] Maureen Pantoja RN Unavailable Unavail able Source [...] release of HIV test results or diagnoses. [id number] Health Encounter Details Date Type Department Care Team (Late st Contact Info) Description 11/20/2024 Refill [facility] Liver Transplant at [address] [place] [phone] Maureen Pantoja, RN Social History Tobacco Use [...] Recorded In the past 12 months has [employer], gas, oil, or water [employer] threatened to shut off services in your [...] documented as of this encounter Care Teams Buyer Broker Relationship Specialty Start Date End Date Enedina Mcguire NP [address] [place] [address] PCP - General Internal Medicine 10/05/24 Maureen Pantoja, ЮЛИЯ Txp Post Coordinator Transplant Hepatology 10/28/24 documented as of this encounter
--- OUTSIDE RECORDS SUMMARY | 2024-12-02 07:57 | XMS_ITS | Encounter Summary ---
Author Organization [facility] Address [address] [place] [address] Care Team Providers Care Endocrinology Teacher Name Role Phone Enedina Mcguire NP Primary Care Provider + [phone] Maureen Pantoja RN Unavailable Unavail able Source [...] release of HIV test results or diagnoses. [id number] Reason for Visit * Reason Comments Results Encounter Details Date Type Department Care Team (Riky st Contact Info) Description 11/21/2024 Telephone [facility] Liver Transplant at [address] [address] Maureen Pantoja, RN Results Social [...] In the past 12 months has [employer], gas, oil, or water [employer] threatened to shut off services in [...] of this encounter Progress Notes * Maureen Pnatoja RN - 11/24/2024 9:04 AM EDT FK [...] documented as of this encounter Care Teams Endocrinology Teacher Relationship Specialty Start Date End Date Enedina Mcguire NP [address] [place] [address] PCP - General Internal Medicine 10/05/24 Maureen Pantoja, RN Txp Post Coordinator Transplant Hepatology 10/28/24 documented as of this encounter
--- OUTSIDE RECORDS SUMMARY | 2024-12-02 07:57 | XMS_ITS | Encounter Summary ---
Author Organization [facility] Address [address] [place] [address] Care Team Providers Care Bay Stocker Name Role Phone Enedina Mcguire NP Primary Care Provider + [phone] Maureen Pantoja RN Unavailable Unavail able Source [...] release of HIV test results or diagnoses. [id number] Health Encounter Details Date Type Department Care Team (Late st Contact Info) Description 11/20/2024 Refill [facility] Liver Transplant at [address] [place] [address] Maureen Pantoja, RN Social History Tobacco Use [...] months has [employer], gas, oil, or water [employer] threatened to shut off services in your [...] documented as of this encounter Care Teams Bay Stocker Relationship Specialty Start Date End Date Enedina Mcguire NP [address] [place] [address] PCP - General Internal Medicine 10/05/24 Maureen Pantoja, ЮЛИЯ Txp Post Coordinator Transplant Hepatology 10/28/24 documented as of this encounter
--- OUTSIDE RECORDS SUMMARY | 2024-12-02 07:57 | XMS_ITS | Data Portability ---
Author Organization [facility],, Main Office Address [address] [place] [address] Assessment No assessment recorded. Plan of Treatment [...] Available No t Available BD Regular Bevel [place] 18 gauge x 1 active Not Available [...] Updated DateTime 3 193.04 cm 29.1 kg/m2 457765. 58 g 112 /min 97.7 [degF] 141/84 mm[Hg] [facility], 3 13:14:11 Date Recorded Body height Body mass index (BMI) Body weight Heart rate Body temperature Systolic And Diastolic Provider Name and Address Organization Details Last Updated DateTime 4 193.04 cm 30.4 kg/m2 839426. 09 g 92 /min 97.5 [degF] 176/104 mm[Hg] [facility], 4 14:06:31 Date Recorded Body temperature Provider Name a nd Address Organization Details Last Updated DateTime 12/27/2020 99.5 [degF] Cuca Strickland [facility], 12/27/2020 13:41:33 Date Recorded Body weight Heart rate Body temperature Systolic And Diastolic Provider Name and Address Organization Details Last Updated DateTime 04/03/2022 952562.95 g 93 /min 97.6 [degF] 114/83 mm[Hg] Ashley Wallace [facility], 04/03/2022 14:42:57 Social History None recorded. Functional Status None recorded. Mental Status None recorded. Family History Nothing Reported. Medical History No medical history recorded. Past Encounters Encounter ID Performer Location Encounter Start Date Encounter Closed Date Diagnosis/Indication Diagnosis SNOMED-CT Code Diagnosis ICD10 Code Diagnosis Note [id number] Yung Felipe DO Main Office [address] [place] [address] 12/27/2020 13:24:24 12/27/2020 14:00:19 Evaluation of semen fertility [id number] N46.9 semen analysis [id number] Yung Felipe DO Main Office [address] [facility] [place] [address] 07/04/2021 14:47:56 07/04/2021 16:00:05 Evaluation of semen fertility 183078084 N46.9 semen analysis [id number] Yung Felipe DO Main Office [address] [place] [address] 05/31/2022 13:04:00 05/31/2022 13:50:01 Evaluation of semen fertility 139486909 N46.9 semen analysis + viability: analysis by Dr. Ruiz [id number] Yung Felipe DO Main Office [address] [place] [address] 10/22/2023 13:58:48 10/22/2023 14:31:18 Evaluation of semen fertility 670455356 N46.9 semen analysis + viability: analysis by [...] analysis Yung Felipe DO [address], [place], [address], [facility], 08/06/2021 23:24:22 05/31/2022 text/html semen analysis + viability [address], [place], [address], [facility], 05/31/2022 13:57:30 10/22/2023 text/html semen analysis [address], [place], [address], [facility], 10/22/2023 16:29:00
--- OUTSIDE RECORDS SUMMARY | 2024-12-02 07:57 | XMS_ITS | Encounter Summary ---
Author Organization [facility] Address [address] [place] [address] Care Team Providers Care Wool Shearer Name Role Phone Enedina Mcguire NP Primary Care Provider + [phone] Maureen Pantoja RN Unavailable Unavail able Source [...] release of HIV test results or diagnoses. [id number] Health Encounter Details Date Type Department Care Team (Late st Contact Info) Description 11/25/2024 Social Work [facility] Liver Transplant at [address] [place] [phone] Kaylin Willard MSW Social History Tobacco Use [...] Recorded In the past 12 months has [employer], gas, oil, or water [employer] threatened to shut off services in your [...] AM 09/29/2024 11:00 AM 11/25/2024 3:00 PM [id number] Score MAGALYS-7 Total Score 17 13 4 Scores are not concerning for depression/anxiety. No further SW needs identified. 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
--- OUTSIDE RECORDS SUMMARY | 2024-12-02 07:57 | XMS_ITS | Encounter Summary ---
Author Organization [facility] Address [address] [place] [address] Care Team Providers Care Hide And Skin Fleshing Machine Operator Name Role Phone Enedina Mcguire NP Primary Care Provider + [phone] Maureen Pantoja RN Unavailable Unavail able Source [...] release of HIV test results or diagnoses. [id number] Health Encounter Details Date Type Department Care Team (Late st Contact Info) Description 11/21/2024 Chart Note [facility] Liver Transplant at [address] [place] [phone] Marlene Ro MA FK: 11/18 & 11/20 [...] Recorded In the past 12 months has [employer], gas, oil, or water [employer] threatened to shut off services in your [...] Tacrolimus level (11/20/2024 8:00 AM EDT) Pathologist [facility] Tacrolimus Lvl 11.5 6 - 15 ng/mL Whole Blood us Historical Provider LAB BLOOD ORDERABLES Denisse valle Result * (ABNORMAL) Renal Function Panel w/o EGFR (11/20/2024 8:00 AM EDT) Glucose 97 mg/dL BUN 36(A) 4 - [...] g/dL Blood Narrative Resulting Agency Comment [facility] Historical Provider LAB BLOOD ORDERABLES Denisse l Result * (ABNORMAL) CBC and differential (11/20/2024 8:00 AM EDT) Hemoglobin 10.5(A) 13.5 - 17.5 g/dL Hematocrit [...] 6.4 10^3/mL Blood Narrative Resulting Agency Comment [facility] Historical Provider LAB BLOOD ORDERABLES Denisse l Result * Hepatic Function Panel (11/20/2024 8:00 AM EDT) Bilirubin, Direct 0.4 Bilirubin, Indirect 0.1 Alkaline Phosphatase 285 U/L ALT 60 U/L AST 25 U/L Total Bilirubin 0.5 0.1 - 1.4 mg/dL Total Protein 6.4 6.4 - 8.2 g/dL Plasma Narrative Resulting Agency Comment [facility] Result [facility] MD LAB BLOOD ORDERABLES Denisse l Result * Tacrolimus level (11/18/2024 7:45 AM EDT) Pathologist [facility] Tacrolimus Lvl 12.5 6 - 15 ng/mL Whole Blood Result [facility] MD LAB BLOOD ORDERABLES Denisse l Result * (ABNORMAL) Hepatic Function Panel (11/18/2024 7:45 AM EDT) [facility] Bilirubin, Direct 0.5 Bilirubin, Indirect 0.1 Alkaline Phosphatase 189 U/L ALT 41 U/L AST 23 U/L Total Bilirubin 0.6 0.1 - 1.4 mg/dL Total Protein 6.1(A) 6.4 - 8.2 g/dL Plasma Narrative Resulting Agency Comment [facility] Result [facility] LAB BLOOD ORDERABLES Denisse l Result * (ABNORMAL) Renal Function Panel w/o EGFR (11/18/2024 7:45 AM EDT) [facility] Glucose 100 mg/dL BUN 43(A) 4 - [...] g/dL Blood Narrative Resulting Agency Comment [facility] Result [facility] MD LAB BLOOD ORDERABLES Denisse l Result * (ABNORMAL) CBC and differential (11/18/2024 7:45 AM EDT) [facility] Hemoglobin 10.2(A) 13.5 - 17.5 g/dL Hematocrit [...] 6.0 10^3/mL Blood Narrative Resulting Agency Comment [facility] us Historical Provider LAB BLOOD ORDERABLES Denisse l Result documented in this encounter Visit Diagnoses Not on filedocumented in this encounter Additional Health Concerns Infection Onset Date Last Indicated Resolved Time 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
--- OUTSIDE RECORDS SUMMARY | 2024-12-02 07:57 | XMS_ITS | Encounter Summary ---
Author Organization [facility] Address [address] [place] [address] Care Team Providers Care Banking Pin Adjuster Name Role Phone Enedina Mcguire NP Primary Care Provider + [phone] Maureen Pantoja RN Unavailable Unavail able Source [...] release of HIV test results or diagnoses. [id number] Reason for Visit * Reason Comments Results Encounter Details Date Type Department Care Team (Late st Contact Info) Description 11/07/2024 Telephone [facility] Liver Transplant at [address] [address] Maureen Pantoja, RN Results Social [...] In the past 12 months has e [employer], gas, oil, or water [employer] threatened to shut off services in [...] documented as of this encounter Care Teams Banking Pin Adjuster Relationship Specialty Start Date End Date Enedina Mcguire NP [address] [place] [address] PCP - General Internal Medicine 10/05/24 Maureen Pantoja, RN Txp Post Coordinator Transplant Hepatology 10/28/24 documented as of this encounter
--- OUTSIDE RECORDS SUMMARY | 2024-12-02 07:57 | XMS_ITS | Encounter Summary ---
Author Organization [facility] Address [address] [place] [address] Care Team Providers Care Field Checker Name Role Phone Enedina Mcguire NP Primary Care Provider + [phone] Maureen Pantoja RN Unavailable Unavail able Source [...] release of HIV test results or diagnoses. [id number] Reason for Visit * Reason Comments Results Encounter Details Date Type Department Care Team (Riky st Contact Info) Description 11/11/2024 Telephone [facility] Liver Transplant at [address] [address] Maureen Pantoja, RN Results Social [...] In the past 12 months has e [employer], gas, oil, or water [email or web address] threatened to shut off services in your [...] as of this encounter Care Teams Field Checker Relationship Specialty Start Date End Date Enedina Mcguire NP [address] [place] [address] PCP - General Internal Medicine 10/05/24 Maureen Pantoja, RN Txp Post Coordinator Transplant Hepatology 10/28/24 documented as of this encounter
--- OUTSIDE RECORDS SUMMARY | 2024-12-02 07:59 | XMS_ITS | Encounter Summary ---
Author Organization [facility] Address [address] [place] [address] Care Team Providers Care Automotive Warranty Administrator Name Role Phone Enedina Mcguire NP Primary Care Provider [phone] Source Comments This information has been disclosed [...] release of HIV test results or diagnoses. [id number] Encounter Details Date Type Department Care Team (Late st Contact Info) Description 10/26/2024 Chart Note [facility] Liver Transplant at [address] [place] [phone] Geri Vasquez, ЮЛИЯ Social History Tobacco Use [...] Recorded In the past 12 months has [employer], gas, oil, or water [employer] threatened to shut off services in your [...] No 10/06/2024 Housing Stability Vital Sign Answer Bbo e Recorded In the last 12 months, [...] documented as of this encounter Care Teams Automotive Warranty Administrator Relationship Specialty Start Date End Date Enedina Mcguire NP [address] [place] [address] PCP - General Internal Medicine 10/05/24 documented as of this encounter
--- OUTSIDE RECORDS SUMMARY | 2024-12-02 07:59 | XMS_ITS | Encounter Summary ---
Author Organization [facility] Address [address] [place] [address] Care Team Providers Care Grout Machine Operator Name Role Phone Enedina Mcguire NP Primary Care Provider [phone] Source Comments This information has been disclosed [...] release of HIV test results or diagnoses. [id number] Encounter Details Date Type Department Care [...] Recorded In the past 12 months has [employer], oil, or water [employer] threatened to shut off services in your [...] documented as of this encounter Care Teams Grout Machine Operator Relationship Specialty Start Date End Date Enedina Mcguire NP [address] [place], [place] [id number] PCP - General Internal Medicine 10/05/24 documented as of this encounter
--- OUTSIDE RECORDS SUMMARY | 2024-12-02 08:00 | XMS_ITS | Encounter Summary ---
Author Organization [facility] Address [address] [place] [address] Care Team Providers Care Art Museum Aide Name Role Phone Enedina Mcguire NP Primary Care Provider [phone] Source Comments This information has been disclosed [...] release of HIV test results or diagnoses. [id number] Reason for Visit * Reason Comments DDLT patient instructions Encounter Details Date Type Department Care Team (Late st Contact Info) Description 10/25/2024 Telephone [facility] Liver Transplant at [address] [address] Krissy Crowell RN DDLT patient [...] Recorded In the past 12 months has [employer], gas, oil, or water [employer] threatened to shut off services in [...] - 10/25/2024 7:[address] Doímnguez, please bring patient in for SLK. Patient will arrive to PACU, ETA is [phone]. Nursing Employment Agency Manager (Humaira), PACU (Emily), SICU (Lizeth), OR (Omar), [...] documented as of this encounter Care Teams Art Museum Aide Relationship Specialty Start Date End Date Enedina Mcguire NP [address] [place], [place] [phone] PCP - General Internal Medicine 10/05/24 documented as of this encounter
--- OUTSIDE RECORDS SUMMARY | 2024-12-02 08:02 | XMS_ITS | Encounter Summary ---
Author Organization [facility] Address [address] [place] [address] Care Team Providers Care Bridge Design Engineer Name Role Phone Enedina Mcguire NP Primary Care Provider [phone] Source Comments This information has been disclosed [...] release of HIV test results or diagnoses. [id number] Encounter Details Date Type Department Care Team (Late st Contact Info) Description 10/22/2024 Chart Note [facility] Liver Transplant at [address] [place] [phone] Mary Butler, RN Social History Tobacco Use [...] Recorded In the past 12 months has [employer], gas, oil, or water [employer] threatened to shut off services in [...] Albumin 3.2(A) 3.5 - 5.0 g/dL Blood Historical Provider LAB BLOOD ORDERABLES Denisse [...] Albumin 3.1(A) 3.5 - 5.0 g/dL Blood Historical Provider LAB BLOOD ORDERABLES Denisse l Result * (ABNORMAL) Protime-INR (10/21/2024) INR 1.52(A) 0.9 - 1.1 Protime 16.4 Plasma Historical Provider LAB BLOOD ORDERABLES Denisse l Result * (ABNORMAL) Hepatic Function Panel (10/21/2024) Bilirubin, Direct 5.4 Alkaline Phosphatase 190 U/L ALT 32 U/L AST 57 U/L Total Bilirubin 7.3(A) 0.1 - 1.4 mg/dL Total Protein 5.4(A) 6.4 - 8.2 g/dL Plasma Historical Provider LAB BLOOD ORDERABLES Denisse l Result documented in this encounter Visit Diagnoses Not on filedocumented in this encounter Additional Health Concerns Infection Onset Date Last Indicated Resolved Time C. difficile 09/09/2024 09/09/2024 10/27/2024 8:30 AM EDT Assessment Noted Time PHQ-9 Depression Total Score: 17 025 11:00 AM EDT documented as of this encounter Care Teams Bridge Design Engineer Relationship Specialty Start Date End Date Enedina Mcguire NP [address] [place] [address] PCP - General Internal Medicine 10/05/24 documented as of this encounter
--- OUTSIDE RECORDS SUMMARY | 2024-12-02 08:02 | XMS_ITS | Encounter Summary ---
Author Organization [facility] Address [address] [place] [address] Care Team Providers Care Supervisor Type Photography Name Role Phone Enedina Mcguire NP Primary Care Provider [phone] Source Comments This information has been disclosed [...] release of HIV test results or diagnoses. [id number] Encounter Details Date Type Department Care Team (Late st Contact Info) Description 10/26/2024 Chart Note [facility] Kidney Transplant at [address] [place] [phone] Geri Vasquez, ЮЛИЯ Social History Tobacco Use [...] Recorded In the past 12 months has [employer], gas, oil, or water [employer] threatened to shut off services in your [...] as of this encounter Care Teams Supervisor Type Photography Relationship Specialty Start Date End Date Enedina Mcguire NP [address] [place] [address] PCP - General Internal Medicine 10/05/24 documented as of this encounter
--- OUTSIDE RECORDS SUMMARY | 2024-12-02 08:02 | XMS_ITS | Encounter Summary ---
Author Organization [facility] Address [address] [place] [address] Care Team Providers Care Business Operations Analyst Name Role Phone Enedina Mcguire APRN Primary Care Provider + Reason for Visit * Reason Comments Med Refill Encounter Details Date Type Department Care Team (Late st Contact Info) Description 07/20/2022 Refill [facility] [address] [facility] [address] [place] [address] Lj Tapia APRN [address] [place] [address] Secondary esophageal varices without bleeding Social History Tobacco Use Types Packs/Day Years Used Date Smoking Tobacco: Every Day Cigarettes Smokeless Tobacco: Current Comments:MARIJUANA USE ABOUT 2X PER WEEK Alcohol Use Standard Drinks/Week Comments Not Currently 0 (1 standard drink = 0.6 oz pur e alcohol) 2 drinks per day (doubles) AUDIT-C Answer Date Recorded Q1: How often do you have a drink containing alcohol? 4 or more times a week 07/02/2022 Q2: How many drinks containi ng alcohol do you have on a typical day when you are drinking? 3 or 4 Q3: How often do you have si x or more drinks on one occasion? Less than monthly 07/02/2022 Hunger Vital Sign Answer Date Recorded Within the past 12 months, y ou worried that your food would run out before you got the money to buy more. Never true 07/03/19 23 Within the past 12 months, t he food you bought just didn't last and you didn't have money to get more. Never true 07/03/2022 Education Answer Date Recorded Help with school or training? Not on file Preferred Language Citizen Of [place] 07/03/2022 Sex and Gender Information Value Date Recorded Sex Assigned at Male 08/20/2024 8:28 PM EDT Legal Sex Male 7:45 AM EDT Gender Identity Not on file Sexual Orientation Not on file documented as of this encounter Plan of Treatment Upcoming Encounters Date Type Department Care Team (Late st Contact Info) Description 12/04/2024 2:15 PM EDT Office Visit [facility] PAIN MANAGEMENT [address] [facility] [address] [place] [address] Vazquez Christie PA-C [address] [place] [address] documented as of this encounter Visit Diagnoses Diagnosis Secondary esophageal varices without bleeding documented in this encounter Additional Health Concerns Infection Onset Date Last Indicated Resolved Time COVID Screen (preop/placement) 07/28/2022 07/28/2022 07/29/2022 12:00 AM EDT documented as of this encounter Care Teams Business Operations Analyst Relationship Specialty Start Date End Date Enedina Mcguire APRN [address] [place] [address] PCP - General Nurse Practitioner 10/27/24 documented as of this encounter
--- OUTSIDE RECORDS SUMMARY | 2024-12-02 08:02 | XMS_ITS | Encounter Summary ---
Author Organization [facility] Address [address] [place] [address] Care Team Providers Care Baker Pastry Name Role Phone Enedina Mcguire APRN Primary Care Provider + Reason for Visit * Reason Onset Date Comments DR SONG - RX REFILL 10/20/2024 Encounter Details Date Type Department Care Team (Late st Contact Info) Description 10/20/2024 Telephone [facility] PAIN MANAGEMENT [address] [phone] Tye Song MD [address] [facility] [address] [place] [address] DR SONG - RX REFILL Social History Tobacco Use Types Packs/Day Years Used Date Smoking Tobacco: Former Cigarettes 4 20 Passive Smoke Exposure: Past Smokeless Tobacco: Current Comments:MARIJUANA USE ABOUT 2X PER WEEK - reports no use 08-05-2024 Alcohol Use Standard Drinks/Week Comments Not Currently 0 (1 standard drink = 0.6 oz pure alcohol) 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 [facility] Utilities Answer Date Recorded In the past 12 months has [employer], gas, oil, or water [employer] threatened to shut off services in your [...] Brief Depression Severity Measure Score 0 10/02/2022 [facility] - Occupational Stress Questionnaire Answer Date [...] GED or equivalent No 07/09/2024 Preferred Language Honduran 07/09/2024 PHQ-2 Answer Date Recorded Patient Health Questionnaire-9 Score 14 10/22/2024 Sex and Gender Information Value Date Recorded Sex Assigned at Male 08/20/2024 8:28 PM EDT Legal Sex Male 7:45 AM EDT Gender Identity Not on file Sexual Orientation Not on file documented as of this encounter Miscellaneous Notes * Telephone Encounter - Zina Marshall RN - 10/21/2024 2:32 PM EDT Spoke with patient and schedule for follow up tomorrow * Telephone Encounter - Marcellus Alexandra - 10/20/2024 11:26 AM EDT Caller: Julien Anderson Relationship: Self Best call back number: [phone]* Requested Prescriptions: OXYCODONE 5MG - ONCE EVERY 6 HOURS Pharmacy where request should be sent: [facility] [place] [place] [place] [facility] [address] [phone] [facility] [phone] FX [phone] Last office visit with prescribing clinician: 08/06/2023 Last telemedicine visit with prescribing clinician: Visit date not found Next office visit with prescribing clinician: Visit date not found Additional details provided by patient: PCP IS OUT OF TOWN AND CANNOT REFILL IT AT THE MOMENT.. WASUSING TRAMADOL BEFORE BUT THE HOSPITAL HAS CHANGED IT TO OXYCODONE.. PLEASE ADVISE.. Does the patient have less than a 3 day supply: [x] Yes [] No Would you like a call back once the refill request has been completed: [x] Yes [] No If the office needs to give you a call back, can they leave a voicemail: [x] Yes [] No Marcellus Alexandra 10/20/24 11:26 EDT documented in this encounter Plan of Treatment Upcoming Encounters Date Type Department Care Team (Late st Contact Info) Description 12/04/2024 2:15 PM EDT Office Visit [facility] PAIN MANAGEMENT [address] [address] Vazquez Christie PA-C [address] [address] documented as of this encounter Visit Diagnoses Not on filedocumented in this encounter Additional Health Concerns Assessment Noted Time PHQ-2 Depression Total Score: 1 12/31/19 24 3:25 PM EDT documented as of this encounter Care Teams Baker Pastry Relationship Specialty Start Date End Date Enedina Mcguire APRN [address] [place] [address] PCP - General Nurse Practitioner 09/04/22 10/21/24 documented as of this encounter
--- OUTSIDE RECORDS SUMMARY | 2024-12-02 08:02 | XMS_ITS | Encounter Summary ---
[facility] Organization [facility] Address [address] [place] [address] Care Team Providers Care Trench Trimmer Fine Name Role Phone Enedina Mcguire APRN Primary Care Provider + Encounter Details Date Type Department Care Team ([facility] st Contact Info) Description 10/07/2024 Results Follow-Up [facility] INTERNAL MEDICINE [address] [place] [address] Enedina Mcguire APRN [address] [place], [place] [id number] Social History Tobacco Use Types Packs/Day Years Used Date Smoking Tobacco: Former Cigarettes 4 20 Passive Smoke Exposure: Past Smokeless Tobacco: Current Comments:MARIJUANA USE ABOUT 2X PER WEEK - reports no use 08-05-2024 Alcohol Use Standard Drinks/Week Comments Not Currently 0 (1 standard drink = 0.6 oz pure alcohol) 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 [facility] Utilities Answer Date Recorded In the past 12 months has [employer], oil, or water [employer] threatened to shut off services in [...] Brief Depression Severity Measure Score 0 10/02/2022 [facility] - Occupational [...] GED or equivalent No 07/09/2024 Preferred Language Namibian 07/09/2024 PHQ-2 Answer Date Recorded Patient Health Questionnaire-2 Score 0 07/09/2024 Sex and Gender Information Value Date Recorded Sex Assigned at Male 08/20/2024 8:28 PM EDT Legal Sex Male 7:45 AM EDT Gender Identity Not on file Sexual Orientation Not on file documented as of this encounter Plan of Treatment Upcoming Encounters Date Type Department Care Team (Late st Contact Info) Description 12/04/2024 2:15 PM EDT Office Visit [facility] PAIN MANAGEMENT [address] [phone] Vazquez Christie PA-C [address] [place] [address] documented as of this encounter Visit Diagnoses Not on filedocumented in this encounter Additional Health Concerns Assessment Noted Time PHQ-2 Depression Total Score: 1 12/31/19 24 3:25 PM EDT documented as of this encounter Care Teams Trench Trimmer Fine Relationship Specialty Start Date End Date Enedina Mcguire APRN [address] [place] [address] PCP - General Nurse Practitioner 10/27/24 documented as of this encounter
--- OUTSIDE RECORDS SUMMARY | 2024-12-02 08:02 | XMS_ITS | Encounter Summary ---
Author Organization [facility] Address [address] [place] [address] Care Team Providers Care Pediatrician/Medical Doctor Name Role Phone Enedina Mcguire NP Primary Care Provider [phone] Source Comments This information has been disclosed [...] release of HIV test results or diagnoses. [id number] Health Encounter Details Date Type Department Care Team (Late st Contact Info) Description 10/22/2024 Chart Note [facility] [address] [place] [address] Aaron Gonzalez MD [address] [place] [phone] Candidacy for a simultaneous liver-kidney transplant Social [...] Recorded In the past 12 months has [employer], gas, oil, or water [employer] threatened to shut off services in your [...] (ESRD) patient in a hospital based, [facility]-hospital based, or home setting. -At the [...] I have discussed this plan with the massage coordinator and the liver transplant team. documented [...] documented as of this encounter Care Teams Pediatrician/Medical Doctor Relationship Specialty Start Date End Date Enedina Mcguire NP [address] [place] [address] PCP - General Internal Medicine 10/05/24 documented as of this encounter
--- OUTSIDE RECORDS SUMMARY | 2024-12-02 08:02 | XMS_ITS | Encounter Summary ---
Author Organization [facility] Address [address] [place] [address] Care Team Providers Care Engagement Executive Name Role Phone Enedina Mcguire NP Primary Care Provider [phone] Source Comments This information has been disclosed [...] release of HIV test results or diagnoses. [id number] Encounter Details Date Type Department Care Team (Late st Contact Info) Description 10/22/2024 Status Update [facility] Kidney Transplant at [facility] [address] [facility] [address] [place] [address] Aaron Gonzalez MD [address] [facility] [place] [address] Social History Tobacco Use Types Packs/Day Years Used Date Smoking Tobacco: Former Cigarettes Smokeless Tobacco: Current Alcohol Use Standard Drinks/Week Comments Yes 0 (1 standard drink = 0.6 oz pure alcohol) History of alcohol abuse, reports no use in 3 week- typically endorses use as 4 glasses of wine a days Utilities Answer Date Recorded In the past 12 months has [employer], gas, oil, or water [employer] threatened to shut off services in your [...] documented as of this encounter Care Teams Engagement Executive Relationship Specialty Start Date End Date Enedina Mcguire NP [address] [place] [address] PCP - General Internal Medicine 10/05/24 documented as of this encounter
--- OUTSIDE RECORDS SUMMARY | 2024-12-02 08:02 | XMS_ITS | Encounter Summary ---
Author Organization [facility] Address [address] [place] [address] Care Team Providers Care Aluminum Molding Machine Operator Name Role Phone Enedina Mcguire NP Primary Care Provider [phone] Source Comments This information has been disclosed [...] release of HIV test results or diagnoses. [id number] [facility] Encounter Details Date Type Department Care Team (Late st Contact Info) Description 10/22/2024 Chart Note [facility] Liver Transplant at [address] [place] [phone] Mary Butler, RN [facility]OS VERIFICATION CHECK FORM [...] Recorded In the past 12 months has [employer], [employer], oil, or water [employer] threatened to shut off services in your [...] Multidisciplinary Team documentation Initial Hepatology assessment sb harvest worker field crop within the last year sb Dietitian within [...] Multidisciplinary Team documentation Initial Hepatology assessment nlc harvest worker field crop within the last year nlc Dietitian within [...] documented as of this encounter Care Teams Aluminum Molding Machine Operator Relationship Specialty Start Date End Date Enedina Mcguire NP [address] [place], [place] [id number] PCP - General Internal Medicine 10/05/24 documented as of this encounter
--- OUTSIDE RECORDS SUMMARY | 2024-12-02 08:02 | XMS_ITS | Encounter Summary ---
Author Organization [facility] Address [facility] [place] [place] [address] Care Team Providers Care Learning Operations Specialist Name Role Phone Enedina Mcguire NP Primary Care Provider [phone] Source Comments This information has been disclosed [...] release of HIV test results or diagnoses. [id number] Health Encounter Details Date Type Department Care Team (Late st Contact Info) Description 10/22/2024 Orders Only [facility] [address] [place] [address] Abdulkadir Gaspar MD 3130 [facility] 3200 [place] [address] Social History Tobacco Use Types Packs/Day Years Used Date Smoking Tobacco: Former Cigarettes Smokeless Tobacco: Current Alcohol Use Standard Drinks/Week Comments Yes 0 (1 standard drink = 0.6 oz pure alcohol) History of alcohol abuse, reports no use in 3 week- typically endorses use as 4 glasses of wine a days Utilities Answer Date Recorded In the past 12 months has [employer], gas, oil, or water company threatened [...] the past 12 m [facility], were you homeless or living in a [...] [facility] [address] [place] [address] documented in this encounter Visit Diagnoses Not on filedocumented in this encounter Additional Health Concerns Infection Onset Date Last Indicated Resolved Time C. difficile 09/09/2024 09/09/2024 10/27/2024 8:30 AM EDT Assessment Noted Time PHQ-9 Depression Total Score: 17 025 11:00 AM EDT documented as of this encounter Care Teams Learning Operations Specialist Relationship Specialty Start Date End Date Enedina Mcguire NP [address] [place] [address] PCP - General Internal Medicine 10/05/24 documented as of this encounter
--- OUTSIDE RECORDS SUMMARY | 2024-12-02 08:02 | XMS_ITS | Encounter Summary ---
Author Organization [facility] Address [address] [place] [address] Care Team Providers Care Mechanical Press Operator Name Role Phone Enedina Mcguire NP Primary Care Provider [phone] Source Comments This information has been disclosed [...] release of HIV test results or diagnoses. [id number] Health Encounter Details Date Type Department Care Team (Late st Contact Info) Description 10/22/2024 Telephone [facility] Psychiatry Transplant at [facility] 3[address] [facility] [address] [place] [address] Lizeth Warren PsyD [address] [facility] [address] [place] [address] Social History Tobacco Use Types Packs/Day Years Used Date Smoking Tobacco: Former Cigarettes Smokeless Tobacco: Current Alcohol Use Standard Drinks/Week Comments Yes 0 (1 standard drink = 0.6 oz pure alcohol) History of alcohol abuse, reports no use in 3 week- typically endorses use as 4 glasses of wine a days Utilities Answer Date Recorded In the past 12 months has [employer], gas, oil, or water [employer] threatened to shut off services in [...] appts. Went to voicemail. Left vm referencing [employer] message with availability times listed. Encouraged patient [...] as of this encounter Care Teams Mechanical Press Operator Relationship Specialty Start Date End Date Enedina Mcguire NP [address] [place] [address] PCP - General Internal Medicine 10/05/24 documented as of this encounter
--- OUTSIDE RECORDS SUMMARY | 2024-12-02 08:02 | XMS_ITS | Encounter Summary ---
Author Organization [facility] Address [address] [place] [address] Care Team Providers Care Pack Puller Name Role Phone Enedina Mcguire NP Primary Care Provider [phone] Source Comments This information has been disclosed [...] release of HIV test results or diagnoses. [id number] Encounter Details Date Type Department Care Team (Late st Contact Info) Description 10/22/2024 Chart Note [facility] Liver Transplant at [address] [place] [phone] Faraz Carballo RN 2nd ABO verified for [...] In the past 12 months has e [employer], gas, oil, or water [employer] threatened to shut off services in your [...] documented as of this encounter Care Teams Pack Puller Relationship Specialty Start Date End Date Enedina Mcguire NP [address] [place] [address] PCP - General Internal Medicine 10/05/24 documented as of this encounter
--- OUTSIDE RECORDS SUMMARY | 2024-12-02 08:02 | XMS_ITS | Encounter Summary ---
Author Organization [facility] Address [address] [place] [address] Care Team Providers Care Product Demonstrator Name Role Phone Enedina Mcguire NP Primary Care Provider [phone] Source Comments This information has been disclosed [...] release of HIV test results or diagnoses. [id number] Health Encounter Details Date Type Department Care Team (Late st Contact Info) Description 10/22/2024 Telephone [facility] Liver Transplant at [address] [address] Mary Butler, RN Social History Tobacco Use [...] Recorded In the past 12 months has [employer], gas, oil, or water [employer] threatened to shut off services in your [...] will need ~[address] [facility]. documented in this encounter Plan of Treatment Not on file documented as of this encounter Visit Diagnoses Not on filedocumented in this encounter Additional Health Concerns Infection Onset Date Last Indicated Resolved Time C. difficile 09/09/2024 09/09/2024 10/27/2024 8:30 AM EDT Assessment Noted Time PHQ-9 Depression Total Score: 17 025 11:00 AM EDT documented as of this encounter Care Teams Product Demonstrator Relationship Specialty Start Date End Date Enedina Mcguire NP [address] [place] [address] PCP - General Internal Medicine 10/05/24 documented as of this encounter
--- OUTSIDE RECORDS SUMMARY | 2024-12-02 08:02 | XMS_ITS | Encounter Summary ---
Author Organization [facility] Address [address] [place] [address] Care Team Providers Care Upholstery Covers Inspector Name Role Phone Enedina Mcguire NP Primary Care Provider [phone] Source Comments This information has been disclosed [...] release of HIV test results or diagnoses. [id number] Encounter Details Date Type Department Care Team (Late st Contact Info) Description 10/25/[address] [facility] Liver Transplant at [address] [address] Krissy Crowell RN Social History Tobacco Use [...] Recorded In the past 12 months has [employer], gas, oil, or water [employer] threatened to shut off services in your [...] granted: N/A OPO: CHACHA OPO Contact: Kiet [phone] Recent illnesses (surgeon aware) [x] Yes [] [...] need to bring equipment or solution to [facility]. They will get supplies from dialysis [...] Notifications: Department Phone Comments Time/Name Capacity Management [phone] Notified of patient's pending TXP ORGANS: Liver Kidney Time: Spoke to: OR [phone] OR scheduled for: per Dr. Domínguez Recipient in the OR time 10/25/2024 @ 2200 Acute donor Risk (according to OPTN policy) YES (HCV, HBV, HIV, COVID) Notified Donor is DCD Time: 1145, spoke to Faraz OR wire bound box machine helper: Gladys RAMIREZ ORGAN Time: yes 1155 BLOOD BANK [phone] For Liver and Heart only Spoke to [place] 1213 Nursing Electrical Designer [phone] For delayed call in [facility] at 1158 PACU or Sameday [phone] Delayed call in: If recipient OR is 2 hrs or less from admission, call PACU/Sameday (basedon where nursing plater supervisor assigns patient) Abdominal Transplant 8CCP [phone] Transfer of care reported for abdominal txp Notified of dialysis type and last session if applicable Time: 8CCP wire bound box machine helper: SICU [phone] Notify about abdominal txp admissions Time: 1215 SICU wire bound box machine helper: Aleks Transplant Surgery Resident/PA QGenda Time: 1219 Spoke to: Dr. Corbett Transplant Surgery Fellow QGenda Time: 1200 Spoke to: Sveta Mojica MD Transplant Research Team [phone] Time: 1218 Spoke to: Macey If applicable, Dialysis Unit EMR Time: Spoke to: Pharmacy IV Room [phone] Liver Only Contact pharmacy to alert that HBIG will be needed when all the following are present: Donor: *HBsAg negative *HBV DNA/KIANA negative Recipient: *HBsAg positive *HBV DNA is detectable on most recent check Time: Spoke to: Heart Transplant CVICU [phone] Transfer of care reported for heart txp Time: CVICU wire bound box machine helper: Email notification to Transplant Team(s) and OR wire bound box machine helper. [Send the following information below to the [...] Venoveno bypass: No Donor info: Donor ID: [id number] Match ID: [id number] Anti-HBc: Negative HBV KIANA: Negative HBsAg: Negative [...] documented as of this encounter Care Teams Upholstery Covers Inspector Relationship Specialty Start Date End Date Enedina Mcguire NP [address] [place] [address] PCP - General Internal Medicine 10/05/24 documented as of this encounter
--- OUTSIDE RECORDS SUMMARY | 2024-12-02 08:02 | XMS_ITS | Encounter Summary ---
Author Organization [facility] Address [facility] [place] [address] Care Team Providers Care Contact Lens Fitter Name Role Phone Enedina Mcguire NP Primary Care Provider [phone] Source Comments This information has been disclosed [...] release of HIV test results or diagnoses. [id number] Health Encounter Details Date Type Department Care Team (Late st Contact Info) Description 10/27/2024 Orders Only [facility] [address] [place] [address] Abdulkadir Gaspar MD 3130 [facility] 3200 Kid[facility] [place] [address] Social History Tobacco Use Types Packs/Day Years Used Date Smoking Tobacco: Former Cigarettes Smokeless Tobacco: Current Alcohol Use Standard Drinks/Week Comments Yes 0 (1 standard drink = 0.6 oz pure alcohol) History of alcohol abuse, reports no use in 3 week- typically endorses use as 4 glasses of wine a days Utilities Answer Date Recorded In the past 12 months has [employer], gas, oil, or water company threatened to [...] BLOOD ORDERABLES Final Resul t [facility] [address] [place] [address] documented in this encounter Visit Diagnoses Not on filedocumented in this encounter Additional Health Concerns Infection Onset Date Last Indicated Resolved Time C. difficile 09/09/2024 09/09/2024 10/27/2024 8:30 AM EDT Assessment Noted Time PHQ-9 Depression Total Score: 17 025 11:00 AM EDT documented as of this encounter Care Teams Contact Lens Fitter Relationship Specialty Start Date End Date Enedina Mcguire NP [address] [place] [address] PCP - General Internal Medicine 10/05/24 documented as of this encounter
--- OUTSIDE RECORDS SUMMARY | 2024-12-02 08:02 | XMS_ITS | Encounter Summary ---
Author Organization [facility] Address [address] [place] [address] Care Team Providers Care Container Shop Welder Name Role Phone Enedina Mcguire APRN Primary Care Provider + Reason for Visit * Reason Onset Date Comments CALLBACK 10/27/2024 Encounter Details Date Type Department Care Team ([facility] st Contact Info) Description 10/27/[address] [facility] INTERNAL MEDICINE [address] [place] [address] Enedina Mcguire APRN [address] [place] [address] CALLBACK Social History Tobacco Use Types Packs/Day Years Used Date Smoking Tobacco: Former Cigarettes 4 20 Passive Smoke Exposure: Past Smokeless Tobacco: Current Comments:MARIJUANA USE ABOUT 2X PER WEEK - reports no use 08-05-2024 Alcohol Use Standard Drinks/Week Comments Not Currently 0 (1 standard drink = 0.6 oz pure alcohol) 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 [facility] Utilities Answer Date Recorded In the past 12 months has [employer], [employer], oil, or water [employer] threatened to shut off services in [...] Depression Severity Measure Score 0 10/02/2022 [facility] - Occupational Stress Questionnaire Answer [...] money to buy more. Never true 07/09/19 Within the past 12 months, t he [...] GED or equivalent No 07/09/2024 Preferred Language Marshallese 07/09/2024 PHQ-2 Answer Date Recorded Patient Health Questionnaire-9 Score 14 10/22/2024 Sex and Gender Information Value Date Recorded Sex Assigned at Male 08/20/2024 8:28 PM EDT Legal Sex Male 7:45 AM EDT Gender Identity Not on file Sexual Orientation Not on file documented as of this encounter Miscellaneous Notes * Telephone Encounter - Enedina Mcguire APRN - 10/27/2024 5:06 PM EDT Called and spoke with patient and * Telephone Encounter - Josiane Welch RegSched Rep - 10/27/2024 4:20 PM EDT Caller: ABDIAZIZ ZELAYA Relationship: Emergency Contact Best call back number: [phone] What was the call regarding: WOULD LIKE A CALL BACK FROM FRANCESCA MCGUIRE HERSELF. SHE WOULD LIKE TO DISCUSS HER 'S TRANSPLANT LIST STATUS. THEY HAVE SOME GOOD NEWS TO REPORT. documented in this encounter Plan of Treatment Upcoming Encounters Date Type Department Care Team (Late st Contact Info) Description 12/04/2024 2:15 PM EDT Office Visit [facility]IN [facility]EMENT [address] [facility] [address] [place] [address] Vazquez Christie PA-C [address] [place] [phone] documented as of this encounter Visit Diagnoses Not on filedocumented in this encounter Additional Health Concerns Assessment Noted Time PHQ-2 Depression Total Score: 1 12/31/19 24 3:25 PM EDT documented as of this encounter Care Teams Container Shop Welder Relationship Specialty Start Date End Date Enedina Mcguire APRN [address] [place] [address] PCP - General Nurse Practitioner 10/27/24 documented as of this encounter
--- OUTSIDE RECORDS SUMMARY | 2024-12-02 08:02 | XMS_ITS | Encounter Summary ---
Author Organization [facility] Address [address] [place] [address] Care Team Providers Care Main Line Station Engineer Name Role Phone Enedina Mcguire NP Primary Care Provider [phone] Alicia Rankin RN Unavailable Unavail able Source [...] release of HIV test results or diagnoses. [id number] Reason for Visit * Reason Comments Results Encounter Details Date Type Department Care Team (Riky st Contact Info) Description 11/26/2024 Telephone [facility] Liver Transplant at [address] [address] Alicia Rankin, RN Results Social History Tobacco Use Types [...] In the past 12 months has e [employer], gas, oil, or water [facility] threatened to shut off services in [...] as of this encounter Progress Notes * Alicia Rankin RN - 12/01/2024 3:03 PM EDTAddended by: ALICIA RANKIN on: 12/01/2024 03:03 PM Modules accepted: Orders * Alicia Rankin RN - 11/28/2024 10:42 AM EDT 30-day acute risk labs collected. HBV, HCV, HIV all not detected. PEth 14 - Will forward to Txp SW and Txp Provider for communication. * Alicia Rankin RN - 11/26/2024 7:17 AM EDT Lab results from 11/25/24 reviewed. Cr 1.59 (from 1.00); BUN 43 (from 36). Patient was instructed by Liver Txp Team yesterday to stop torsemide. LFTs stable. Alk phos 198 (from 285), AST/ALT 9/22 (from 25/60). 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
--- OUTSIDE RECORDS SUMMARY | 2024-12-02 08:02 | XMS_ITS | Encounter Summary ---
Author Organization [facility] Address [address] [place] [address] Care Team Providers Care Bulldozer Operator Name Role Phone Enedina Mcguire NP Primary Care Provider [phone] Source Comments This information has been disclosed [...] release of HIV test results or diagnoses. [id number] Health Encounter Details Date Type Department Care Team (Late st Contact Info) Description 10/22/2024 Chart Note [facility] Kidney Transplant at [address] [place] [address] Gladis Rainey RN Received most recent [...] Recorded In the past 12 months has [employer], gas, oil, or water [employer] threatened to shut off services in your [...] Rainey RN - 10/22/2024 1:51 PM EDT [facility] VERIFICATION CHECK FORM Julien Anderson [id number] or answer yes or no next to each item to note you have verified the information for listing on this patient in [facility]. First Name nh Last Name sd Middle Initial N/a Date of sd SS# sd Center ID# (MRN) sd ABO x 2 sd / sd I have verified the two (2) blood type results for this candidate are the same blood type and matchthe results reported in UNet. 2728 date [facility] N/a 2728 date [facility] N/a If patient is not on Dialysis Verify date of GFR and GFR 19 on 08/13/24 *Meets CKD Criteria for [facility] listing today with today eGFR 21 on 10/22/24 *Kidney checked in Liver registration as additional organ Listing date in [facility] match nh Listing date notification letter match [facility] Updated consent on file [x] Yes [...] Team documentation Nephrology within the last year sd coal chute worker within the last year sd Dietitian within the last year sd Finance within the last year sd Pharmacy within the last year sd Initial surgery assessment sd RN coordinator documentation nh * Terra Pyle RN - 10/22/2024 1:51 PM EDT [facility] VERIFICATION CHECK FORM Julien Anderson [id number] or answer yes or no next to each item to note you have verified the information for listing on this patient in [facility]. First Name MW Last Name MW Middle Initial N/A Date of MW SS# MW Center ID# (MRN) MW ABO x 2 MW / MW I have verified the two (2) blood type results for this candidate are the same blood type and matchthe results reported in [facility]et. 2727 date [facility] N/A 2727 date [facility] N/A If patient is not on Dialysis Verify date of GFR and GFR 19 on 08/13/24 Verified that liver was checked on kidney registration Verified that kidney was checked on liver registration Listing date in [facility] match MW Listing date notification letter match [facility] Updated consent on file [x] Yes [] [...] documentation Nephrology within the last year MW coal chute worker within the last year MW Dietitian within the last year MW Finance within the last year MW Pharmacy within the last year Initial surgery assessment RN coordinator documentation MW [...] documented as of this encounter Care Teams Bulldozer Operator Relationship Specialty Start Date End Date Enedina Mcguire NP [address] [place] [address] PCP - General Internal Medicine 10/05/24 documented as of this encounter
--- OUTSIDE RECORDS SUMMARY | 2024-12-02 08:02 | XMS_ITS | Encounter Summary ---
Author Organization [facility] Address [address] [place] [address] Care Team Providers Care Adjunct Physical Education Instructor Name Role Phone Enedina Mcguire APRN Primary Care Provider + Encounter Details Date Type Department Care Team ([facility] st Contact Info) Description 10/07/2024 Results Follow-Up [facility] INTERNAL MEDICINE [address] [place] [address] Enedina Mcguire APRN [address] [place], [place] [phone] Social History Tobacco Use Types Packs/Day Years Used Date Smoking Tobacco: Former Cigarettes 4 20 Passive Smoke Exposure: Past Smokeless Tobacco: Current Comments:MARIJUANA USE ABOUT 2X PER WEEK - reports no use 08-05-2024 Alcohol Use Standard Drinks/Week Comments Not Currently 0 (1 standard drink = 0.6 oz pure alcohol) 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 [facility] Utilities Answer Date Recorded In the past 12 months has [employer], [employer], oil, or water [employer] threatened to shut off services in your [...] Brief Depression Severity Measure Score 0 10/02/2022 [facility] - [...] GED or equivalent No 07/09/2024 Preferred Language Turkish 07/09/2024 PHQ-2 Answer Date Recorded Patient Health [...] Description 12/04/2024 2:15 PM EDT Office Visit [facility] PAIN [facility]GEMENT [address] [phone] Vazquez Christie PA-C [address] [place] [address] documented as of this encounter Visit Diagnoses Not on filedocumented in this encounter Additional Health Concerns Assessment Noted Time PHQ-2 Depression Total Score: 1 12/31/19 24 3:25 PM EDT documented as of this encounter Care Teams Adjunct Physical Education Instructor Relationship Specialty Start Date End Date Enedina Mcguire APRN [address] [place] [address] PCP - General Nurse Practitioner 10/27/24 documented as of this encounter
--- OUTSIDE RECORDS SUMMARY | 2024-12-02 08:02 | XMS_ITS | Encounter Summary ---
[facility] Address [address] [place] [address] Care Team Providers Care Turn Supervisor Name Role Phone Enedina Mcguire APRN Primary Care Provider + Encounter Details Date Type Department Care Team ([facility] st Contact Info) Description 10/17/2024 Telephone [facility] INTERNAL MEDICINE [address] [place] [address] Enedina Mcguire APRN [address] [place] [address] Social History Tobacco Use Types Packs/Day Years Used Date Smoking Tobacco: Former Cigarettes 4 20 Passive Smoke Exposure: Past Smokeless Tobacco: Current Comments:MARIJUANA USE ABOUT 2X PER WEEK - reports no use 08-05-2024 Alcohol Use Standard Drinks/Week Comments Not Currently 0 (1 standard drink = 0.6 oz pure alcohol) 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 [facility] Utilities Answer Date Recorded In the past 12 months has [employer], oil, or water [employer] threatened to shut off services in [...] Brief Depression Severity Measure Score 0 10/02/2022 [facility]ational Stress Questionnaire Answer Date [...] GED or equivalent No 07/09/2024 Preferred Language Brazilian 07/09/2024 PHQ-2 Answer Date Recorded Patient Health Questionnaire-9 Score 14 10/22/2024 Sex and Gender Information Value Date Recorded Sex Assigned at Male 08/20/2024 8:28 PM EDT Legal Sex Male 7:45 AM EDT Gender Identity Not on file Sexual Orientation Not on file documented as of this encounter Functional Status documented as of this encounter Miscellaneous Notes * Telephone Encounter - Nancy Plummer - 10/17/2024 5:36 PM EDT Per pt he was removed from the tramadol due to anxiety and they placed him on oxycodone. Pt has medication til Sunday. Please advise. * Telephone Encounter - Trinity Vinson RegSched Rep - 10/17/2024 4:02 PM EDT PATIENT WAS JUST DISCHARGE FROM [facility] AND THEY HAVE PLACED THE PATIENT ON OXY 5MG. THE HOSPITAL ONLY GAVE THE PATIENT 3 DAYS OF MEDS. PATIENT IS REQUESTING A REFILL TO GET HIM TO THE APPT WITH PCP ON 10/27. PHARM: [facility] [place] [phone] CALL BACK: [phone] documented in this encounter Plan of Treatment Upcoming Encounters Date Type Department Care Team (Late st Contact Info) Description 12/04/2024 2:15 PM EDT Office Visit [facility] PAIN MANAGEMENT [address] [phone] Vazquez Christie PA-C [address] [address] documented as of this encounter Visit Diagnoses Not on filedocumented in this encounter Additional Health Concerns Assessment Noted Time PHQ-2 Depression Total Score: 1 12/31/19 24 3:25 PM EDT documented as of this encounter Care Teams Turn Supervisor Relationship Specialty Start Date End Date Enedina Mcguire APRN [address] [place] [address] PCP - General Nurse Practitioner 10/27/24 documented as of this encounter
--- OUTSIDE RECORDS SUMMARY | 2024-12-02 08:02 | XMS_ITS | Encounter Summary ---
Author Organization [facility] Address [address] [place] [id number] Care Team Providers Care Nursing Home Aide Name Role Phone Enedina Mcguire NP Primary Care Provider [phone] Source Comments This information has been disclosed [...] release of HIV test results or diagnoses. [id number] Reason for Visit * Reason Comments Appointment Encounter Details Date Type Department Care Team ([facility] st Contact Info) Description 10/24/2024 Telephone [facility] at [address] [place] [phone] Joann Davies MA Appointment Social History Tobacco [...] Recorded In the past 12 months has [employer], oil, or water [employer] threatened to shut off services in your [...] 11:19 AM EDT ----- Message from Fellow Sraa Gamino MD sent at 10/16/2024 8:25 PM [...] as of this encounter Care Teams Nursing Home Aide Relationship Specialty Start Date End Date Enedina Mcguire NP [address] [place] [id number] PCP - General Internal Medicine 10/05/24 documented as of this encounter
--- OUTSIDE RECORDS SUMMARY | 2024-12-02 08:02 | XMS_ITS | Encounter Summary ---
Author Organization [facility] Address [address] [place] [address] Care Team Providers Care Casket Trimmer Name Role Phone Soco Patel APRN Primary Care Provid er Encounter Details Date Type Department Care Team (Latest Contact Info) Description 10/22/2024 Travel Social History Tobacco Use Types Packs/Day Years Used Date Smoking Tobacco: Former Cigarettes 4 20 Passive Smoke Exposure: Past Smokeless Tobacco: Current Comments:MARIJUANA USE ABOUT 2X PER WEEK - reports no use 08-05-2024 Alcohol Use Standard Drinks/Week Comments Not Currently 0 (1 standard drink = 0.6 oz pure alcohol) 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 [facility] Utilities Answer Date Recorded In the past 12 months has [email or web address], gas, oil, or water [employer] threatened to shut off services in [...] Brief Depression Severity Measure Score 0 10/02/2022 [facility] [place] [facility] Occupat ional Health - Occupational Stress [...] GED or equivalent No 07/09/2024 Preferred Language Haitian 07/09/2024 PHQ-2 Answer Date Recorded Patient Health Questionnaire-9 Score 14 10/22/2024 Sex and Gender Information Value Date Recorded Sex Assigned at Male 08/20/2024 8:28 PM EDT Legal Sex Male 7:45 AM EDT Gender Identity Not on file Sexual Orientation Not on file documented as of this encounter Functional Status documented as of this encounter Plan of Treatment Upcoming Encounters Date Type Department Care Team (Late st Contact Info) Description 12/04/2024 2:15 PM EDT Office Visit [facility]IN [facility] [address] [facility] [address] [place] [address] Vazquez Christie PA-C [address] [place] [address] [address] [place] [id number] documented as of this encounter Visit Diagnoses Not on filedocumented in this encounter Additional Health Concerns Assessment Noted Time PHQ-2 Depression Total Score: 1 12/31/19 24 3:25 PM EDT documented as of this encounter Care Teams Casket Trimmer Relationship Specialty Start Date End Date Soco Patel APRN [address] [facility] [address] [facility] [address] [place] [address] PCP - General Family Medicine 10/22/24 10/26/24 documented as of this encounter
--- OUTSIDE RECORDS SUMMARY | 2024-12-02 08:03 | XMS_ITS | Encounter Summary ---
Author Organization [facility] Address [facility] [place] [address] Care Team Providers Care Cardiology Coordinator Name Role Phone Enedina Mcguire NP Primary Care Provider + [phone] Maureen Pantoja RN Unavailable Unavail able Source [...] release of HIV test results or diagnoses. [id number] Health Encounter Details Date Type Department Care Team (Late st Contact Info) Description 10/31/2024 Orders Only [facility] Liver Transplant at [facility] [address] [facility] [address] [place] [address] Harvey Domínguez III, MD [address] [place] [address] [address] [place] [address] Liver replaced by transplant ([facility]) (Primary Dx); Immunosuppressive management encounter following liver transplant ([facility]) Social History Tobacco Use Types Packs/Day Years [...] past 12 months has th e electric, [employer], [employer], or water [employer] threatened to shut off services in your [...] as of this encounter Plan of Treatment Scheduled Orders Name Type Priority Associated Diagnoses Orde r Schedule Tacrolimus level Lab Routine Liver replaced by transplant ([facility]) Immunosuppressive management encounter following liver transplant ([facility]) 70 Occurrences starting 11/03/2024 until 10/31/2025, 3 completed Hepatic Function Panel Lab Routine Liver replaced by transplant ([facility]) Immunosuppressive management encounter following liver transplant ([facility]) 70 Occurrences starting 11/03/2024 until 10/31/2025, 3 completed Renal Function Panel w/EGFR Lab Routine Liver replaced by transplant ([facility]) Immunosuppressive management encounter following liver transplant ([facility]) 70 Occurrences starting 11/03/2024 until 10/31/2025, 2 completed CBC Lab Routine Liver replaced by transplant ([facility]) Immunosuppressive management encounter following liver transplant ([facility]) 70 Occurrences starting 11/03/2024 until 10/31/2025, 2 completed Differential Lab Routine Liver replaced by transplant ([facility]) Immunosuppressive management encounter following liver transplant ([facility]) 70 Occurrences starting 11/03/2024 until 10/31/2025, 3 completed documented as of this encounter Results * Differential (11/25/2024 8:42 AM EDT) Neutrophils Relative 73.2 40.0 - 80.0 % 11/25/2024 10:25 AM EDT [facility] Lymphocytes Relative 19.2 15.0 - 45.0 % 11/25/2024 10:25 AM EDT [facility] Monocytes Relative 6.3 0.0 - 12.0 % 11/25/2024 10:25 AM EDT [facility] Eosinophils Relative 0.4 0.0 - 8.0 % 11/25/2024 10:25 AM EDT [facility] Basophils Relative 0.9 0.0 - 1.0 % 11/25/2024 10:25 AM EDT [facility] nRBC 0 0 - 0 /100 WBC 11/25/2024 10:25 AM EDT [facility] Neutrophils Absolute 5,929 1,520 - 8,640 /uL 11/25/2024 10:25 AM EDT [facility] Lymphocytes Absolute 1,555 570 - 4,860 /uL 11/25/2024 10:25 AM EDT [facility] Monocytes Absolute 510 0 - 1,296 /uL 11/25/2024 10:25 AM EDT [facility] Eosinophils Absolute 32 0 - 864 /uL 11/25/2024 10:25 AM EDT [facility] Basophils Absolute 73 0 - 108 /uL 11/25/2024 10:25 AM EDT [facility] Whole Blood 11/25/2024 8:42 AM EDT 11/25/2024 9:44 AM EDT Narrative [facility] - 11/25/2024 10:25 AM EDT Standing orders to be drawn: Every Sunday and before 9am and prior to patient taking morning medications. Liver Transplant Fax results to [phone] Call Critical results to [phone] us Harvey Domínguez III, MD LAB BLOOD ORDERABLE S Final Result [facility] [address] [place] [address], [facility] * (ABNORMAL) Hepatic Function Panel (11/25/2024 8:42 AM EDT) Total Bilirubin 0.7 0.0 - 1.5 mg/dL 11/25/2024 10:20 AM EDT [facility] Bilirubin, Direct 0.20 0.00 - 0.40 mg/dL 11/25/2024 10:20 AM EDT [facility] AST 9(L) 13 - 39 U/L 11/25/2024 10:20 AM EDT [facility] ALT 22 7 - 52 U/L 11/25/2024 10:20 AM EDT [facility] Alkaline Phosphatase 198(H) 36 - 125 U/L 11/25/2024 10:20 AM EDT [facility] Total Protein 7.0 6.4 - 8.9 g/dL 11/25/2024 10:20 AM EDT [facility] Albumin 4.5 3.5 - 5.7 g/dL 11/25/2024 10:20 AM EDT [facility] Bilirubin, Indirect 0.50 0.00 - 1.10 mg/dL 11/25/2024 10:20 AM EDT [facility] Plasma 11/25/2024 8:42 AM EDT 11/25/2024 9:47 AM EDT [facility] - 11/25/2024 10:20 AM EDT Standing orders to be drawn: Every Sunday and before 9am and prior to patient taking morning medications. Liver Transplant Fax results to [phone] Call Critical results to [phone] DO NOT REPLACE RENAL PANEL or HEPATIC FUNCTION PANEL w/ CMP, BMP or HEPATIC PROFILE Harvey Domínguez III, MD LAB BLOOD ORDERABLE S Final Result [facility] [address] * Tacrolimus level (11/25/2024 8:42 AM EDT) Tacrolimus (LC-MS) 11.6 3.0 - 15.0 ng/mL 11/25/2024 1:14 PM EDT [facility] Comment:Performed via liquid chromatography tandem mass spectrometry. Detection limit: 1 ng/mL. Individual target concentrations may vary due to target organ and time after transplant. This test has been developed and its performance characteristics determined by [facility] which is certified under the [...] 8:42 AM EDT 11/25/2024 9:44 AM EDT [facility] - 11/25/2024 1:14 PM EDT Standing orders to be drawn: Every Sunday and before 9am and prior to patient taking morning medications. Liver Transplant Fax results to [phone] Call Critical results to [phone] us Harvey Domínguez III, MD LAB BLOOD ORDERABLE S Final Result [facility] [address] [facility] [place] [address], [facility] * (ABNORMAL) Differential (11/11/2024 9:13 AM EDT) Neutrophils Relative 69.3 40.0 - 80.0 % 11/11/2024 10:31 AM EDT [facility] Lymphocytes Relative 17.6 15.0 - 45.0 % 11/11/2024 10:31 AM EDT [facility] Monocytes Relative 8.5 0.0 - 12.0 % 11/11/2024 10:31 AM EDT [facility] Eosinophils Relative 2.0 0.0 - 8.0 % 11/11/2024 10:31 AM EDT [facility] Basophils Relative 2.6(H) 0.0 - 1.0 % 11/11/2024 10:31 AM EDT [facility] nRBC 0 0 - 0 /100 WBC 11/11/2024 10:31 AM EDT [facility] Neutrophils Absolute 4,920 1,520 - 8,640 /uL 11/11/2024 10:31 AM EDT [facility] Lymphocytes Absolute 1,250 570 - 4,860 /uL 11/11/2024 10:31 AM EDT [facility] Monocytes Absolute 604 0 - 1,296 /uL 11/11/2024 10:31 AM EDT [facility] Eosinophils Absolute 142 0 - 864 /uL 11/11/2024 10:31 AM EDT [facility] Basophils Absolute 185(H) 0 - 108 /uL 11/11/2024 10:31 AM EDT [facility] Whole Blood 11/11/2024 9:13 AM EDT 11/11/2024 10:19 AM EDT Narrative [facility] - 11/11/2024 10:31 AM EDT Standing orders to be drawn: Every Sunday and before 9am and prior to patient taking morning medications. Liver Transplant Fax results to [phone] Call Critical results to [phone] us Harvey Domínguez III, MD LAB BLOOD ORDERABLE S Final Result [facility] [address] [facility]. [place] [address], [facility] * (ABNORMAL) CBC (11/11/2024 9:13 AM EDT) WBC 7.1 3.8 - 10.8 10E3/uL 11/11/2024 10:31 AM EDT [facility] RBC 3.42(L) 4.20 - 5.80 10E6/uL 11/11/2024 10:31 AM EDT [facility] Hemoglobin 10.6(L) 13.2 - 17.1 g/dL 11/11/2024 10:31 AM EDT [facility] Hematocrit 31.3(L) 38.5 - 50.0 % 11/11/2024 10:31 AM EDT [facility] MCV 91.5 80.0 - 100.0 fL 11/11/2024 10:31 AM EDT [facility] MCH 31.0 27.0 - 33.0 pg 11/11/2024 10:31 AM EDT [facility] MCHC 33.8 32.0 - 36.0 g/dL 11/11/2024 10:31 AM EDT [facility] RDW 20.5(H) 11.0 - 15.0 % 11/11/2024 10:31 AM EDT [facility] Platelets 308 140 - 400 10E3/uL 11/11/2024 10:31 AM EDT [facility] MPV 6.1(L) 7.5 - 11.5 fL 11/11/2024 10:31 AM EDT [facility] Whole Blood 11/11/2024 9:13 AM EDT 11/11/2024 10:19 AM EDT Narrative [facility] - 11/11/2024 10:31 AM EDT Standing orders to be drawn: Every Sunday and before 9am and prior to patient taking morning medications. Liver Transplant Fax results to [phone] Call Critical results to [phone] us Harvey Domíngeuz III, MD LAB BLOOD ORDERABLE S Final Result [facility] [address] [place] [address], [facility] * (ABNORMAL) Renal Function Panel w/EGFR (11/11/2024 9:13 AM EDT) Sodium 141 133 - 146 mmol/L 11/11/2024 10:51 AM EDT [facility] Potassium 4.6 3.5 - 5.3 mmol/L 11/11/2024 10:51 AM EDT [facility] Chloride 108 98 - 110 mmol/L 11/11/2024 10:51 AM EDT [facility] CO2 24 21 - 33 mmol/L 11/11/2024 10:51 AM EDT [facility] Anion Gap 9 3 - 16 mmol/L 11/11/2024 10:51 AM EDT [facility] BUN 27(H) 7 - 25 mg/dL 11/11/2024 10:51 AM EDT [facility] Creatinine 1.14 0.60 - 1.30 mg/dL 11/11/2024 10:51 AM EDT [facility] Glucose 97 70 - 100 mg/dL 11/11/2024 10:51 AM EDT [facility] Calcium 8.6 8.6 - 10.3 mg/dL 11/11/2024 10:51 AM EDT [facility] Phosphorus 4.4 2.1 - 4.7 mg/dL 11/11/2024 10:51 AM EDT [facility] Albumin 3.8 3.5 - 5.7 g/dL 11/11/2024 10:51 AM EDT [facility] Osmolality, Calculated 297 278 - 305 mOsm/kg 11/11/2024 10:51 AM EDT [facility] EGFR 83 11/11/2024 10:51 AM EDT [facility] [...] 9:13 AM EDT 11/11/2024 10:19 AM EDT [facility] - 11/11/2024 10:51 AM EDT Standing orders to be drawn: Every Sunday and before 9am and prior to patient taking morning medications. Liver Transplant Fax results to [phone] Call Critical results to [phone] DO NOT REPLACE RENAL PANEL or HEPATIC FUNCTION PANEL w/ CMP, BMP or HEPATIC PROFILE us Harvey Domínguez III, MD LAB BLOOD ORDERABLE S Final Result [facility] [address] [place] [address], [facility] * (ABNORMAL) Hepatic Function Panel (11/11/2024 9:13 AM EDT) Total Bilirubin 1.0 0.0 - 1.5 mg/dL 11/11/2024 10:51 AM EDT [facility] Bilirubin, Direct 0.39 0.00 - 0.40 mg/dL 11/11/2024 10:51 AM EDT [facility] AST 15 13 - 39 U/L 11/11/2024 10:51 AM EDT [facility] ALT 26 7 - 52 U/L 11/11/2024 10:51 AM EDT [facility] Alkaline Phosphatase 125 36 - 125 U/L 11/11/2024 10:51 AM EDT [facility] Total Protein 5.9(L) 6.4 - 8.9 g/dL 11/11/2024 10:51 AM EDT [facility] Albumin 3.8 3.5 - 5.7 g/dL 11/11/2024 10:51 AM EDT [facility] Bilirubin, Indirect 0.61 0.00 - 1.10 mg/dL 11/11/2024 10:51 AM EDT [facility] Plasma 11/11/2024 9:13 AM EDT 11/11/2024 10:19 AM EDT [facility] - 11/11/2024 10:51 AM EDT Standing orders to be drawn: Every Sunday and before 9am and prior to patient taking morning medications. Liver Transplant Fax results to [phone] Call Critical results to [phone] DO NOT REPLACE RENAL PANEL or HEPATIC FUNCTION PANEL w/ CMP, BMP or HEPATIC PROFILE Harvey Domínguez III, MD LAB BLOOD ORDERABLE S Final Result [facility] [address] * Tacrolimus level (11/11/2024 9:13 AM EDT) Tacrolimus (LC-MS) 10.4 3.0 - 15.0 ng/mL 11/11/2024 1:22 PM EDT [facility] Comment:Performed via liquid chromatography tandem mass spectrometry. Detection limit: 1 ng/mL. Individual target concentrations may vary due to target organ and time after transplant. This test has been developed and its performance characteristics determined by [facility] which is certified under the [...] AM EDT 11/11/2024 10:19 AM EDT Narrative [facility] - 11/11/2024 1:22 PM EDT Standing orders to be drawn: Every Sunday and before 9am and prior to patient taking morning medications. Liver Transplant Fax results to [phone] Call Critical results to [phone] us Harvey Domínguez III, MD LAB BLOOD ORDERABLE S Final Result [facility] [address] [place] [address], [facility] * (ABNORMAL) Differential (11/04/2024 8:46 AM EDT) Differential Comments See Note 11/05/2024 12:05 AM EDT [facility] Comment: _Platelets Appear Decreased _Platelet Morphology Normal Myelocytes Relative 3.0(H) 0.0 - 0.0 % 11/05/2024 12:05 AM EDT [facility] Neutrophils Relative 73.0 40.0 - 80.0 % 11/05/2024 12:05 AM EDT [facility] Lymphocytes Relative 17.0 15.0 - 45.0 % 11/05/2024 12:05 AM EDT [facility] Monocytes Relative 6.0 0.0 - 12.0 % 11/05/2024 12:05 AM EDT [facility] Eosinophils Relative 1.0 0.0 - 8.0 % 11/05/2024 12:05 AM EDT [facility] Basophils Relative 0.0 0.0 - 1.0 % 11/05/2024 12:05 AM EDT [facility] Neutrophils Absolute 5,256 1,520 - 8,640 /uL 11/05/2024 12:05 AM EDT [facility] Myelocytes Absolute 216(H) 0 - 0 /uL 11/05/2024 12:05 AM EDT [facility] Lymphocytes Absolute 1,224 570 - 4,860 /uL 11/05/2024 12:05 AM EDT [facility] Monocytes Absolute 432 0 - 1,296 /uL 11/05/2024 12:05 AM EDT [facility] Eosinophils Absolute 72 0 - 864 /uL 11/05/2024 12:05 AM EDT [facility] Basophils Absolute 0 0 - 108 /uL 11/05/2024 12:05 AM EDT [facility] PLT Morphology Platelet morphology appears normal 11/05/2024 12:05 AM EDT [facility] Whole Blood 11/04/2024 8:46 AM EDT 11/04/2024 11:01 PM EDT Narrative [facility] - 11/05/2024 12:05 AM EDT Standing orders to be drawn: Every Sunday and before 9am and prior to patient taking morning medications. Liver Transplant Fax results to [phone] Call Critical results to [phone] Manual WBC differential performed per review criteria approved by the medical officer. us Harvey Domínguez III, MD LAB BLOOD ORDERABLE S Final Result [facility] [address] [facility] [place] [place] [address], [facility] * (ABNORMAL) CBC (11/04/2024 8:46 AM EDT) WBC 7.2 3.8 - 10.8 10E3/uL 11/05/2024 12:05 AM EDT [facility] RBC 3.17(L) 4.20 - 5.80 10E6/uL 11/05/2024 12:05 AM EDT [facility] Hemoglobin 9.7(L) 13.2 - 17.1 g/dL 11/05/2024 12:05 AM EDT [facility] Hematocrit 28.6(L) 38.5 - 50.0 % 11/05/2024 12:05 AM EDT [facility] MCV 90.2 80.0 - 100.0 fL 11/05/2024 12:05 AM EDT [facility] MCH 30.5 27.0 - 33.0 pg 11/05/2024 12:05 AM EDT [facility] MCHC 33.8 32.0 - 36.0 g/dL 11/05/2024 12:05 AM EDT [facility] RDW 17.9(H) 11.0 - 15.0 % 11/05/2024 12:05 AM EDT [facility] Platelets 137(L) 140 - 400 10E3/uL 11/05/2024 12:05 AM EDT [facility] Platelet Estimate Decreased 11/05/2024 12:05 AM EDT [facility] MPV 8.4 7.5 - 11.5 fL 11/05/2024 12:05 AM EDT [facility] Whole Blood 11/04/2024 8:46 AM EDT 11/04/2024 11:01 PM EDT Narrative [facility] - 11/05/2024 12:05 AM EDT Standing orders to be drawn: Every Sunday and before 9am and prior to patient taking morning medications. Liver Transplant Fax results to [phone] Call Critical results to [phone] Peripheral blood smear was scanned per review criteria approved by the laboratory medical officer. us Harvey Domínguez III, MD LAB BLOOD ORDERABLE S Final Result [facility] [address] * (ABNORMAL) Renal Function Panel w/EGFR (11/04/2024 8:46 AM EDT) Sodium 139 133 - 146 mmol/L 11/04/2024 10:06 AM EDT [facility] Potassium 3.8 3.5 - 5.3 mmol/L 11/04/2024 10:06 AM EDT [facility] Chloride 106 98 - 110 mmol/L 11/04/2024 10:06 AM EDT [facility] CO2 25 21 - 33 mmol/L 11/04/2024 10:06 AM EDT [facility] Anion Gap 8 3 - 16 mmol/L 11/04/2024 10:06 AM EDT [facility] BUN 34(H) 7 - 25 mg/dL 11/04/2024 10:06 AM EDT [facility] Creatinine 1.08 0.60 - 1.30 mg/dL 11/04/2024 10:06 AM EDT [facility] Glucose 92 70 - 100 mg/dL 11/04/2024 10:06 AM EDT [facility] Calcium 7.8(L) 8.6 - 10.3 mg/dL 11/04/2024 10:06 AM EDT [facility] Phosphorus 1.9(L) 2.1 - 4.7 mg/dL 11/04/2024 10:06 AM EDT [facility] Albumin 3.5 3.5 - 5.7 g/dL 11/04/2024 10:06 AM EDT [facility] Osmolality, Calculated 295 278 - 305 mOsm/kg 11/04/2024 10:06 AM EDT [facility] EGFR 88 11/04/2024 10:06 AM EDT [facility] [...] AM EDT 11/04/2024 9:32 AM EDT Narrative [facility] - 11/04/2024 10:06 AM EDT Standing orders to be drawn: Every Sunday and before 9am and prior to patient taking morning medications. Liver Transplant Fax results to [phone] Call Critical results to [phone] DO NOT REPLACE RENAL PANEL or HEPATIC FUNCTION PANEL w/ CMP, BMP or HEPATIC PROFILE us Harvey Domínguez III, MD LAB BLOOD ORDERABLE S Final Result [facility] [address] [place] [address], [facility] * (ABNORMAL) Hepatic Function Panel (11/04/2024 8:46 AM EDT) Total Bilirubin 1.3 0.0 - 1.5 mg/dL 11/04/2024 10:06 AM EDT [facility] Bilirubin, Direct 0.57(H) 0.00 - 0.40 mg/dL 11/04/2024 10:06 AM EDT [facility] AST 20 13 - 39 U/L 11/04/2024 10:06 AM EDT [facility] ALT 67(H) 7 - 52 U/L 11/04/2024 10:06 AM EDT [facility] Alkaline Phosphatase 133(H) 36 - 125 U/L 11/04/2024 10:06 AM EDT [facility] Total Protein 5.4(L) 6.4 - 8.9 g/dL 11/04/2024 10:06 AM EDT [facility] Albumin 3.5 3.5 - 5.7 g/dL 11/04/2024 10:06 AM EDT [facility] Bilirubin, Indirect 0.73 0.00 - 1.10 mg/dL 11/04/2024 10:06 AM EDT [facility] Plasma 11/04/2024 8:46 AM EDT 11/04/2024 9:32 AM EDT Narrative [facility] - 11/04/2024 10:06 AM EDT Standing orders to be drawn: Every Sunday and before 9am and prior to patient taking morning medications. Liver Transplant Fax results to [phone] Call Critical results to [phone] DO NOT REPLACE RENAL PANEL or HEPATIC FUNCTION PANEL w/ CMP, BMP or HEPATIC PROFILE us Harvey Domínguez III, MD LAB BLOOD ORDERABLE S Final Result [facility] [address] [place] [address], [facility] * Tacrolimus level (11/04/2024 8:46 AM EDT) Tacrolimus (LC-MS) 9.0 3.0 - 15.0 ng/mL 11/04/2024 3:14 PM EDT [facility] Comment:Performed via liquid chromatography tandem mass spectrometry. Detection limit: 1 ng/mL. Individual target concentrations may vary due to target organ and time after transplant. This test has been developed and its performance characteristics determined by [facility] which is certified under the [...] morning medications. Liver Transplant Fax results to [phone] Call Critical results to [phone] us Harvey Domínguez III, MD LAB BLOOD ORDERABLE S Final Result [facility] [address] documented in this encounter Visit Diagnoses [...] documented as of this encounter Care Teams Cardiology Coordinator Relationship Specialty Start Date End Date Enedina Mcguire NP [address] [place] [address] PCP - General Internal Medicine 10/05/24 Maureen Pantoja, ЮЛИЯ Txp Post Coordinator Transplant Hepatology 10/28/24 documented as of this encounter
--- OUTSIDE RECORDS SUMMARY | 2024-12-02 08:03 | XMS_ITS | Encounter Summary ---
Author Organization Healthcare Address [address] [place] [address] Care Team Providers Care Senior Site Manager Name Role Phone Jony Conde MD Primary Care Provider [phone] Lj Tapia FIXED INCOME PORTFOLIO MANAGER Unavailable [phone] Enedina Mcguire FIXED INCOME PORTFOLIO MANAGER Primary Care Provider + Nuria Fall FRACTIONATING STILL OPERATOR Unavailable Unavaila ble Encounter Details Date Type Department Care Team (Late st Contact Info) Description 07/02/2022 Orders Only External Location [address] [place] [id number] Provider, External Social History Tobacco Use Types [...] Care Team (Late st Contact Info) Description 01/08/2025 3:20 PM EDT Office Visit [facility] [place] [address] [facility], [address] [place] [address] Vincent Braga MD [address] [facility] [address] [place] [id number] documented as of this encounter Procedures Procedure [...] on filedocumented in this encounter Care Teams Senior Site Manager Relationship Specialty Start Date End Date Jony Conde MD [address] [place] [address] [address] [place] [address] PCP - General 07/18/22 12/03/22 Enedina Mcguire APRN [address] [place] [address] PCP - General 12/04/22 Lj Tapia APRN [facility] [place] [address] Referring Physician Gastroenterology 07/18/22 Nuria Fall LPN [facility] TCM Nurse 07/24/24 08/23/24 documented as of this encounter
--- OUTSIDE RECORDS SUMMARY | 2024-12-02 08:03 | XMS_ITS | Encounter Summary ---
Author Organization [facility] Address [address] [place] [address] Care Team Providers Care Forest Management Teacher Name Role Phone Enedina Mcguire NP Primary Care Provider + [phone] Maureen Pantoja RN Unavailable Unavail able Source [...] release of HIV test results or diagnoses. [id number] Health Encounter Details Date Type Department Care Team (Late st Contact Info) Description 10/27/2024 Chart Note [facility] Liver Transplant at [address] [place] [address] Crista Power, RN I introduced myself as inpatient liver/kidney stars coordinator, Social History Tobacco Use Types Packs/Day Years Used Date Smoking Tobacco: Former Cigarettes Smokeless Tobacco: Current Alcohol Use Standard Drinks/Week Comments Yes 0 (1 standard drink = 0.6 oz pure alcohol) History of alcohol abuse, reports no use in 3 week- typically endorses use as 4 glasses of wine a days Utilities Answer Date Recorded In the past 12 months has [employer], gas, oil, or water [employer] threatened to shut off services in your [...] EDT I introduced myself as inpatient liver/kidney stars coordinator, explained role and provided my contact [...] documented as of this encounter Care Teams Forest Management Teacher Relationship Specialty Start Date End Date Enedina Mcguire NP [address] [place] [address] PCP - General Internal Medicine 10/05/24 Maureen Pantoja, ЮЛИЯ Txp Post Coordinator Transplant Hepatology 10/28/24 documented as of this encounter
--- OUTSIDE RECORDS SUMMARY | 2024-12-02 08:03 | XMS_ITS | Encounter Summary ---
Author Organization Healthcare Address [address] [place] [address] Care Team Providers Care Gristmiller Name Role Phone Masury, Lj Nova APRN Unavailable [phone] Enedina Mcguire APRN Primary Care Provider + Encounter Details Date Type Department Care Team ([facility] st Contact Info) Description 11/27/2024 Telephone [facility] Nephrology, Bone & Mineral Metabolism [address] [facility], [address] [place] [address] Chelsy Villanueva Social History Tobacco [...] often do you attend chur ch or temple services? Patient unable to answer 07/14/2024 Do [...] Recorded Patient Health Questionnaire-2 Score 2 09/29/2024 [facility] - Occupational Stress Questionnaire Answer [...] drink first t deborah in the morning (EYE-SALESPERSON [employer]) to steady your nerves or to get [...] encounter Miscellaneous Notes * Telephone Encounter - Chelsy Villanueva - 11/27/2024 10:[address] Hairston pt is now s/p transplant can follow with transplant housing counselor, please cancel appt. documented in this encounter Plan of Treatment Upcoming Encounters Date Type Department Care Team (Late st Contact Info) Description 01/08/2025 3:20 PM EDT Office [facility] [place] [address] [facility], [address] [place] [address] Vincent Braga MD [address] [place] [address] documented as of this encounter Visit Diagnoses [...] documented as of this encounter Care Teams Gristmiller Relationship Specialty Start Date End Date Enedina Mcguire APRN [address] [place] [address] PCP - General 12/04/22 Lj Tapia APRN [address] [place] [address] Referring Physician Gastroenterology 07/18/22 documented as of this encounter
--- OUTSIDE RECORDS SUMMARY | 2024-12-02 08:03 | XMS_ITS | Clinical Summary ---
Author Organization Healthcare Address [address] [place] [address] Care Team Providers Care Crown Perforator Operator Name Role Phone Lj Tapia Rohini RICKS Unavailable [phone] Enedina Mcguire APRN Primary Care Provider + [...] Encounters Date Type Department Care Team Description 11/27/2024 Telephone [facility] Nephrology, Bone & Mineral Metabolism [address] [facility], [address] [place] [address] Chelsy Villanueva 09/29/2024 2:20 PM EDT Office Visit [facility] Nephrology, Bone & Mineral Metabolism [address], [address] [place] [address] Yovanny Flores MD NADIYA (acute kidney injury) ([facility]) (Primary Dx); Portal hypertension ([facility]); Secondary esophageal varices with bleeding ([facility]) 09/29/2024 Travel 09/25/2024 Telephone [facility] Nephrology, Bone & Mineral Metabolism [address], [address] [place] [address] Chelsy Villanueva from Last 3 [...] often do you attend chur ch or latter day services? Patient unable to [...] Recorded Patient Health Questionnaire-2 Score 2 09/29/2024 [facility] - Occupational Stress Questionnaire Answer [...] place to sleep or slept in a detention (including now)? No 11/19/2023 PHQ-9 Answer Date [...] living in a detention (including now)? 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-INSURANCE SALES ASSOCIATE) to steady your nerves or to get [...] Upcoming Encounters Date Type Department Care Team ([facility] st Contact Info) Description 01/08/2025 3:20 PM EDT Office Visit [facility] [place] [address] [facility], [address] [place] [address] Vincent Braga MD [address] [place] [address] Health Maintenance Due Date Last Done Comments [...] 2 - 13+ 2-dose series) 10/11/2010 09/13/2010 [id number]-40 Vaccine (4 - season) 2024 03/17/2021, 07/25/2020, 06/27/2020 [facility]-Influenza Vaccine [...] 07/11/2024, Additional history exists [facility]-HIV Screening Completed 11/25/2024, , 10/07/2024, Additional history exists [facility]-HIB Vaccines Aged Out No longer e ligible based on patient's age to complete this topic [facility]-IPV Vaccines Aged Out No longer e ligible based on patient's age to complete this topic [facility]-Rotavirus Vaccines Aged Out No lo nger eligible based on patient's age to complete this topic Medical Devices Implanted Type Area Veneer Matcher Device Identifier Shelf Expiration Date Model / Serial / Lot Concerto [place] Coil-07/03/2022 Implanted:06/15 by Timmy Brunner MD (Quantity not on file) Coil Abdomen Description:Multiple Coil Co ncerto Pgla [place] Detach COILS implanted on 07/03/2022 by Timmy Brunner MD at [facility]--info can be found in Care Everywhere for [facility] as of 11/15/23 Dona Coil-07/03/2022 Implanted:06/15 by Timmy Brunner MD (Quantity not on file) Coil Abdomen [employer] Description:Coil Emb Dona 3.7/Implanted: Qty: 1 on 07/03/2022 by Timmy Brunner MD at [facility] Plate Plate N/A: Neck Plug Vasc Anton Emb Amplatzer Implanted:06/15 by Timmy Brunner MD (Quantity not on file) Plug Other Vein / / [id number] Description:Plug Vasc Anton Em b Ampltz .[id number] - [id number] Implanted: Qty: 1 on 07/03/2022 by Timmy Brunner MD at [facility] Stent Gastro Panc 5fr 5cm - [id number] Implanted:Qty: 1 on 11/20/2023 by Devang Mcghee, ЮЛИЯ at [facility] Pancreas [employer]-[id number] 08/13/2026 [id number] / / [id number] Procedures Procedure Name Priority Date/Time Associated Diagnosis [...] EST 07/14/2024 4:56 PM EST Laureano Salinas ACTIVITIES AIDE, DNP LAB BLOOD ORDERA BLES Final Result [facility] [address] [place] [address] * Hepatitis C Antibody (07/14/2024 4:31 PM EST) Hepatitis C Antibody Negative Negative 07/14/2024 5:27 PM EST HEALTHCARE LAB Blood Venous blood specimen / Unknown Venipuncture / Unknown 07/14/2024 4:31 PM EST 07/14/2024 4:54 PM EST Laureano Salinas APRN, [facility] LAB BLOOD ORDERA BLES Final Result [facility] [address] [place] [address] from Last 3 Months or Most Recently Relevant to Health Maintenance Insurance [facility] Advance Directives * Full Code (Latest Code Status on File) Date Activated Date Inactivated Comments 07/11/2024 11:04 PM 07/23/2024 6:27 PM Question Answer Comments Patient has decision-making capacity? Yes * Full Code Date Activated Date Inactivated Comments 11/14/2023 10:15 PM 11/27/2023 9:08 PM Question Answer Comments Patient has decision-making capacity? Yes Care Teams Crown Perforator Operator Relationship Specialty Start Date End Date Enedina Mcguire APRN [address] [place] [address] PCP - General 12/04/22 Lj Tapia APRN [address] [place] [address] Referring Physician Gastroenterology 07/18/22
--- OUTSIDE RECORDS SUMMARY | 2024-12-02 08:03 | XMS_ITS | Encounter Summary ---
Author Organization [facility] Address [address] [place] [address] Care Team Providers Care Watch Parts Grinder Name Role Phone Enedina Mcguire NP Primary Care Provider + [phone] Maureen Pantoja RN Unavailable Unavail able Source [...] release of HIV test results or diagnoses. [id number] Reason for Visit * Reason Comments Results Encounter Details Date Type Department Care Team (Late st Contact Info) Description 11/04/2024 Telephone [facility] Liver Transplant at [address] [address] Maureen Pantoja, RN Results Social [...] In the past 12 months has e [employer], gas, oil, or water [employer] threatened to shut off services in your [...] documented as of this encounter Care Teams Watch Parts Grinder Relationship Specialty Start Date End Date Enedina Mcguire NP [address] [place] [address] PCP - General Internal Medicine 10/05/24 Maureen Pantoja, ЮЛИЯ Txp Post Coordinator Transplant Hepatology 10/28/24 documented as of this encounter
--- OUTSIDE RECORDS SUMMARY | 2024-12-02 08:03 | XMS_ITS | Encounter Summary ---
Author Organization [facility] Address [address] [place] [address] Care Team Providers Care Pump Operator Byproducts Name Role Phone Soco Patel APRN Primary Care Provid er Reason for Visit * Reason Onset Date Comments New Med Request 10/21/2024 Encounter Details Date Type Department Care Team ([facility] st Contact Info) Description 10/21/2024 Telephone [facility] INTERNAL MEDICINE [address] [place] [address] Enedina Mcguire APRN [address] [place] [address] New Med Request Social History Tobacco Use Types Packs/Day Years Used Date Smoking Tobacco: Former Cigarettes 4 20 Passive Smoke Exposure: Past Smokeless Tobacco: Current Comments:MARIJUANA USE ABOUT 2X PER WEEK - reports no use 08-05-2024 Alcohol Use Standard Drinks/Week Comments Not Currently 0 (1 standard drink = 0.6 oz pure alcohol) 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 [facility] Utilities Answer Date Recorded In the past 12 months has [employer], gas, oil, or water [employer] threatened to shut off services in your [...] Brief Depression Severity Measure Score 0 10/02/2022 [facility] - Occupational Stress Questionnaire [...] GED or equivalent No 07/09/2024 Preferred Language Omani 07/09/2024 PHQ-2 Answer Date Recorded Patient Health Questionnaire-9 Score 14 10/22/2024 Sex and Gender Information Value Date Recorded Sex Assigned at Male 08/20/2024 8:28 PM EDT Legal Sex Male 7:45 AM EDT Gender Identity Not on file Sexual Orientation Not on file documented as of this encounter Miscellaneous Notes * Telephone Encounter - Anjelica Mcfarland MA - 10/22/2024 2:20 PM EDT Called and spoke to patient and let him know we cannot refill medications AD didn't prescribe he would have to call transplant team or provider who sent the medications for him. Patient stated it wasall taken care of and he needed nothing further. * Telephone Encounter - Nancy Plummer - 10/21/2024 4:18 PM EDT Pt returned call. Gave message from provider that This medication was not prescribed by his provider and providers have no records of when these were prescribed/what for/duration. Request records please. Pt stated he had his discharge summary and the medication was 20mg per day. Pt stated he understood the need to get the meds from liver doctor but voiced frustration with having to jump through so many hoops when he was only trying to get the medications he needed. Pt stated he had an apt with PCP on Sunday and was only asking for medications to get him to apt. Pt again voiced frustration. Pt stated he would hate for Enedina to lose a patient over one little medication not getting filled. MA again explained that there is no documentation in pt's chart for the medication being requested,which is why Provider requested records, pt stated, I am holding discharge summary in my hand, I need 20mg daily. Pt requested provider reconsider request as he was carrying around additional weight while he awaited his transplant Please advise. * Telephone Encounter - Nancy Plummer - 10/21/2024 1:05 PM EDT Called and left VM for pt to return call to office. 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 [phone] FX Additional notes: PATIENT STATES HE HAS LIVER AND KIDNEY FAILURE WHICH HAS LED TO ABOUT 30 POUNDS OF WATER RETENTION. HE STATES HE IS TO BE PLACED ON THE TRANSPLANT LIST TOMORROW AND NEEDS THIS MEDICATION TO HELP HIM GET RID OF THE FLUID. documented in this encounter Plan of Treatment Upcoming Encounters Date Type Department Care Team (Late st Contact Info) Description 12/04/2024 2:15 PM EDT Office Visit [facility] PAIN [facility]EMENT [address] [facility] [address] [place] [address] Vazquez Christie PA-C [address] [facility] [address] [place] [address] documented as of this encounter Visit Diagnoses Not on filedocumented in this encounter Additional Health Concerns Assessment Noted Time PHQ-2 Depression Total Score: 1 12/31/19 24 3:25 PM EDT documented as of this encounter Care Teams Pump Operator Byproducts Relationship Specialty Start Date End Date Soco Patel APRN [address] [facility] [address] [place] [address] PCP - General Family Medicine 10/22/24 10/26/24 documented as of this encounter
--- OUTSIDE RECORDS SUMMARY | 2024-12-02 08:03 | XMS_ITS | Encounter Summary ---
Author Organization Healthcare Address [address] [place] [address] Care Team Providers Care Video Games Storywriter Name Role Phone Jony Conde MD Primary Care Provider [phone] Lj Tapia PROGRAM MANAGEMENT INTERN Unavailable [phone] Enedina Mcguire PROGRAM MANAGEMENT INTERN Primary Care Provider + Nuria Fall MEDICATION MANAGER Unavailable Unavaila ble Encounter Details Date Type Department Care Team (Late st Contact Info) Description 07/04/2022 Orders Only External Location [address] [place] [address] Presley Montes De Oca MD [address] [facility] [address] [place], [place] [id number] Social History Tobacco Use Types Packs/Day Years Used Date Smoking Tobacco: Never Assessed Sex and Gender Information Value Date Recorded Sex Assigned at Male 07/08/2024 5:21 PM EST Legal Sex Male 8:30 PM EDT Gender Identity Not on file Sexual Orientation Not on file documented as of this encounter Plan of Treatment Upcoming Encounters Date Type Department Care Team (Late Contact Info) Description 01/08/2025 3:20 PM EDT [facility] [address], [address] [place] [address] Vincent Braga MD [address] [facility] [address] [place] [phone] documented as of this encounter Procedures Procedure [...] on filedocumented in this encounter Care Teams Video Games Storywriter Relationship Specialty Start Date End Date Jony Conde MD [address] [facility] [address] [place] [address] PCP - General 07/18/22 12/03/22 Enedina Mcguire APRN [address] [place] [address] PCP - General 12/04/22 Lj Tapia APRN [address] [place] [address] Referring Physician Gastroenterology 07/18/22 Nuria Fall LPN [facility] TCM Nurse 07/24/24 08/23/24 documented as of this encounter
--- OUTSIDE RECORDS SUMMARY | 2024-12-02 08:03 | XMS_ITS | Encounter Summary ---
Author Organization [facility] Address [address] [place] [address] Care Team Providers Care Batch Trucker Name Role Phone Enedina Mcguire NP Primary Care Provider + [phone] Maureen Pantoja RN Unavailable Unavail able Source [...] release of HIV test results or diagnoses. [id number] Health Encounter Details Date Type Department Care Team (Late st Contact Info) Description 11/04/2024 Results Follow-Up [facility] Liver Transplant at [address] [address] Maureen Pantoja, ЮЛИЯ Tacrolimus level, Hepatic Function [...] Recorded In the past 12 months has [employer], gas, oil, or water [employer] threatened to shut off services in your [...] documented as of this encounter Care Teams Batch Trucker Relationship Specialty Start Date End Date Enedina Mcguire NP [address] [place] [address] PCP - General Internal Medicine 10/05/24 Maureen Pantoja, RN Txp Post Coordinator Transplant Hepatology 10/28/24 documented as of this encounter
--- OUTSIDE RECORDS SUMMARY | 2024-12-02 08:03 | XMS_ITS | Encounter Summary ---
Author Organization [facility] Address [address] [place] [address] Care Team Providers Care Gear Inspector Name Role Phone Enedina Mcguire APRN Primary Care Provider + Reason for Visit * Reason Comments Med Refill Encounter Details Date Type Department Care Team (Late st Contact Info) Description 09/12/2022 Refill [facility] GASTROENTEROLOGY [address] [facility] [address] [place] [address] Lj Tapia APRN [address] [place] [address] Social History Tobacco Use Types Packs/Day Years [...] alcohol? 4 or more times a week 07/29/2022 Q2: How many drinks containi ng alcohol do you have on a typical day when you are drinking? 3 or 4 Q3: How often do you have si x or more drinks on one occasion? Less than monthly 07/29/2022 Hunger Vital Sign Answer Date Recorded Within the past 12 months, y ou worried that your food would run out before you got the money to buy more. Never true 07/03/19 23 Within the past 12 months, t he food you bought just didn't last and you didn't have money to get more. Never true 07/03/2022 Abuse Screen Answer Date Recorded Feels Unsafe at Home or Work/School no 07/29/2022 Feels Threatened by Someone no 07/12 Does Anyone Try to Keep You From Having Contact with Others or Doing Things Outside Your Home? no 07/29/2022 Physical Signs of Abuse Present no 07/29/2022 Housing Stability Answer Date Recorded Current Living Arrangements home 07/12 Potentially Unsafe Housing Conditions Not on deib e 07/29/2022 Disabilities Answer Date Recorded Difficulty Concentrating, Remembering or Making Decisions no 07/29/2022 Difficulty Managing Errands Independently no 07/29/2022 Education Answer Date Recorded Help with school or training? Not on file Preferred Language Sierra Leonean 07/03/2022 Sex and Gender Information Value Date Recorded Sex Assigned at Male 08/20/2024 8:28 PM EDT Legal Sex Male 7:45 AM EDT Gender Identity Not on file Sexual Orientation Not on file documented as of this encounter Plan of Treatment Upcoming Encounters Date Type Department Care Team (Late st Contact Info) Description 12/04/2024 2:15 PM EDT Office Visit [facility] [address] [address] Vazquez Christie PA-C [address] [place] [address] documented as of this encounter Visit Diagnoses Not on filedocumented in this encounter Care Teams Gear Inspector Relationship Specialty Start Date End Date Enedina Mcguire APRN [address] [place] [address] PCP - General Nurse Practitioner 10/27/24 documented as of this encounter
--- OUTSIDE RECORDS SUMMARY | 2024-12-02 08:03 | XMS_ITS | Encounter Summary ---
Author Organization [facility] Address [address] [place] [address] Care Team Providers Care Director Of Ancillary Services Name Role Phone Enedina Mcguire NP Primary Care Provider + [phone] Maureen Pantoja RN Unavailable Unavail able Source [...] release of HIV test results or diagnoses. [id number] Health Encounter Details Date Type Department Care Team (Late st Contact Info) Description 11/04/2024 Social Work [facility] Liver Transplant at [address] [place] [phone] Kaylin Willard MSW Social History Tobacco Use [...] Recorded In the past 12 months has [employer], gas, oil, or water [employer] threatened to shut off services in [...] Patient reports he completed CD treatment with [facility] and was referred to [facility] for aftercare and will be attending 1 week virtual individual counseling sessions.He reports he was due to start this while hospitalized for the transplant and plans to reschedule his next session. Hope Stone given. SW discussed process for writing to Donor family and confirmed Pt/family have [facility] brochure. No further SW needs identified. 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
--- OUTSIDE RECORDS SUMMARY | 2024-12-02 08:03 | XMS_ITS | Encounter Summary ---
Author Organization [facility] Address [address] [place] [address] Care Team Providers Care Shoe Clerk Name Role Phone Enednia Mcguire NP Primary Care Provider [phone] Source Comments This information has been disclosed [...] release of HIV test results or diagnoses. [id number] Health Encounter Details Date Type Department Care Team (Late st Contact Info) Description 10/27/2024 Chart Note [facility] Kidney Transplant at [address] [place] [phone] Karen Rosen, RN I have verified that the donor serologies entered in [facility] match the donor Social History [...] Recorded In the past 12 months has [facility], gas, oil, or water [employer] threatened to shut off services in your [...] serologies entered in Epic match the donor serologies that are listed [...] as of this encounter Care Teams Shoe Clerk Relationship Specialty Start Date End Date Enedina Mcguire NP [address] [place] [address] PCP - General Internal Medicine 10/05/24 documented as of this encounter
--- OUTSIDE RECORDS SUMMARY | 2024-12-02 08:03 | XMS_ITS | Encounter Summary ---
Author Organization [facility] Address [address] [place] [address] Care Team Providers Care Clerical Car Checker Name Role Phone Enedina Mcguire NP Primary Care Provider + [phone] Maureen Pantoja RN Unavailable Unavail able Source [...] release of HIV test results or diagnoses. [id number] Reason for Visit * Reason Comments Transplant Review Encounter Details Date Type Department Care Team (Late st Contact Info) Description 10/27/2024 Pharmacy Services [facility] [address] [place] [id number] Opal Cox, TaniD Social History Tobacco [...] Recorded In the past 12 months has [employer], gas, oil, or water [employer] threatened to shut off services in your [...] of Care Patient's prescriptions were sent to [facility] for a Transplant benefits review. Julien Anderson received a Kidney/Liver Transplant on 10/26-10/27/24 at [facility]. The patient's discharge medications were sent to [facility] for anticipated discharge of 11/03/24. The patient has a [employer] [facility] commercial insurance plan to cover prescriptions. Currently, the patient's co-pay for all medications is listed below: Acetaminophen 325 mg - $4 Alcohol swabs - $0 Aspiring 81mg - $4 Atovaquone 750 mg/5 ml - $0 Dexcom G7 Dermatology Procedural Physician- $0 Dexcom G7 Sensor- $0 Eliquis 2.5mg [...] $0 Specialty Pharmacy Requirements: Name of Pharmacy: [facility] Specialty Phone Number: Prescriptions Transferred at Discharge Date: The patient could have potential eligibility for the pharmaceutical company medication assistance program for each of these medications. Mr Anderson's total cost of discharge prescriptions is currently $16. This total is subject to changewith the addition or change in any of the prescriptions sent to [facility]. A call was placed to Mr Anderson's room to discuss total cost amount from above and encourage patientto set up profile with [facility] Specialty. [facility] Specialty Pharmacy confirmed delivery of immunosuppressants to [...] The patient has been referred to the [facility] Transplant Team. The patient should visit Medication Access for assistance if problems arise with the prescriptions. If questions arise regarding discharge medications, please call [phone]. Opal Cox Pharm D Transitions of Care [phone] documented in this encounter Plan of Treatment [...] documented as of this encounter Care Teams Clerical Car Checker Relationship Specialty Start Date End Date Enedina Mcguire NP [address] [place] [address] PCP - General Internal Medicine 10/05/24 Maureen Pantoja, ЮЛИЯ Txp Post Coordinator Transplant Hepatology 10/28/24 documented as of this encounter
--- OUTSIDE RECORDS SUMMARY | 2024-12-02 08:03 | XMS_ITS | Encounter Summary ---
[facility] Address [address] [place] [address] Care Team Providers Care Hollow Tile Partition Erector Name Role Phone Enedina Mcguire APRN Primary Care Provider + Reason for Visit * Reason Onset Date Comments Med Management 10/20/2024 Encounter Details Date Type Department Care Team ([facility] st Contact Info) Description 10/20/2024 Telephone [facility] INTERNAL MEDICINE [address] [place] [address] Enedina Mcguire APRN [address] [place] [address] Med Management Social History Tobacco Use Types Packs/Day Years Used Date Smoking Tobacco: Former Cigarettes 4 20 Passive Smoke Exposure: Past Smokeless Tobacco: Current Comments:MARIJUANA USE ABOUT 2X PER WEEK - reports no use 08-05-2024 Alcohol Use Standard Drinks/Week Comments Not Currently 0 (1 standard drink = 0.6 oz pure alcohol) 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 - Occupational Stress Questionnaire Answer [...] GED or equivalent No 07/09/2024 Preferred Language Tongan 07/09/2024 PHQ-2 Answer Date Recorded Patient Health Questionnaire-2 Score 0 07/09/2024 Sex and Gender Information Value Date Recorded Sex Assigned at Male 08/20/2024 8:28 PM EDT Legal Sex Male 7:45 AM EDT Gender Identity Not on file Sexual Orientation Not on file documented as of this encounter Miscellaneous Notes * Telephone Encounter - Crystal Saez RegSched Rep - 10/20/2024 10:27 AM EDT Caller: Julien Anderson Relationship: Self Best call back number: [phone] What medication are you requesting: POTASSIUM CHLORIDE 20 MEQ 2 TIMES A DAY SODIUM BICARB CIPROFLAXIN 500 MG DAILY URSODIAL 200 MG CAPSULE TORSEMIDE 20 MG ONCE DAILY OXYCODONE 5 MG ONE TIME EVERY SIX HOURS NEEDED If a prescription is needed, what is your preferred pharmacy and phone number: [facility] [place] [facility] [address] [phone] [facility] [phone] Additional notes: PATIENT IS CURRENTLY UNABLE TO COME IN FOR AN APPOINTMENT, BUT NEEDS THESE MEDICATIONS. documented in this encounter Plan of Treatment Upcoming Encounters Date Type Department Care Team (Late st Contact Info) Description 12/04/2024 2:15 PM EDT Office Visit [facility]IN [facility]EMENT [address] [facility] [address] [place] [address] Vazquez Christie PA-C [address] [address] documented as of this encounter Visit Diagnoses Diagnosis Acquired hypothyroidism Unspecified hypothyroidism Secondary esophageal varices without bleeding documented in this encounter Additional Health Concerns Assessment Noted Time PHQ-2 Depression Total Score: 1 12/31/19 24 3:25 PM EDT documented as of this encounter Care Teams Hollow Tile Partition Erector Relationship Specialty Start Date End Date Enedina Mcguire APRN [address] [place] [address] PCP - General Nurse Practitioner 09/04/22 10/21/24 documented as of this encounter
--- OUTSIDE RECORDS SUMMARY | 2024-12-02 08:03 | XMS_ITS | Encounter Summary ---
Author Organization Healthcare Address [address] [place] [address] Care Team Providers Care Coconut Candy Maker Name Role Phone Jony Conde MD Primary Care Provider [phone] Lj Tapia DISPATCHER RADIOACTIVE WASTE DISPOSAL Unavailable [phone] Enedina Mcguire DISPATCHER RADIOACTIVE WASTE DISPOSAL Primary Care Provider + Nuria Fall AGRONOMIST Unavailable Unavaila ble Encounter Details Date Type Department Care Team (Late st Contact Info) Description 07/04/2022 Orders Only External Location [address] [place] [address] Presley Montes De Oca MD [address] [facility] [address] [place], [place] [id number] Social History Tobacco Use Types Packs/Day Years [...] PM EDT [facility] [address], [address] [place] [address] Vincent Braga MD [address] [facility] [address] [place] [id number] documented as of this encounter Procedures Procedure [...] on filedocumented in this encounter Care Teams Coconut Candy Maker Relationship Specialty Start Date End Date Jony Conde MD [address] [place] [address] [address] [place] [address] PCP - General 07/18/22 12/03/22 Enedina Mcguire APRN [address] [place] [address] PCP - General 12/04/22 Lj Tapia APRN [address] [place] [address] Referring Physician Gastroenterology 07/18/22 Nuria Fall LPN [facility] TCM Nurse 07/24/24 08/23/24 documented as of this encounter
--- OUTSIDE RECORDS SUMMARY | 2024-12-02 08:03 | XMS_ITS | Encounter Summary ---
Author Organization Healthcare Address [address] [place] [address] Care Team Providers Care Driver Sales Name Role Phone Jony Conde MD Primary Care Provider [phone] Lj Tapia SENIOR JAVA WEB APPLICATION DEVELOPER Unavailable [phone] Enedina Mcguire SENIOR JAVA WEB APPLICATION DEVELOPER Primary Care Provider + Nuria Fall PC SUPPORT SPECIALIST Unavailable Unavaila ble Encounter Details Date Type Department Care Team (Late st Contact Info) Description 07/03/2022 Orders Only External Location [address] [place] [address] Presley Montes De Oca MD [address] [facility] [address] [place], [place] [id number] Social History Tobacco Use Types Packs/Day Years [...] PM EDT [facility] [address], [address] [place] [address] Vincent Braga MD [address] [facility] [address] [place] [phone] documented as of this encounter Procedures Procedure [...] on filedocumented in this encounter Care Teams Driver Sales Relationship Specialty Start Date End Date Jony Conde MD [address] [place] [address] [address] [place] [address] PCP - General 07/18/22 12/03/22 Enedina Mcguire APRN [address] [place] [address] PCP - General 12/04/22 Lj Tapia APRN [address] [place] [address] Referring Physician Gastroenterology 07/18/22 Nuria Fall LPN [facility] TCM Nurse 07/24/24 08/23/24 documented as of this encounter
--- OUTSIDE RECORDS SUMMARY | 2024-12-02 08:03 | XMS_ITS | Encounter Summary ---
[facility] Address [address] [place] [address] Care Team Providers Care Propeller Engineer Name Role Phone Enedina Mcguire APRN Primary Care Provider + Reason for Visit * Reason Onset Date Comments Med Refill 10/20/2024 Encounter Details Date Type Department Care Team (Late st Contact Info) Description 10/20/2024 Refill [facility] INTERNAL MEDICINE [address] [place] [address] Enedina Mcguire APRN [address] [place] [address] Hepatic encephalopathy; Acquired hypothyroidism; Secondary esophageal varices without bleeding Social History Tobacco Use Types Packs/Day Years Used Date Smoking Tobacco: Former Cigarettes 4 20 Passive Smoke Exposure: Past Smokeless Tobacco: Current Comments:MARIJUANA USE ABOUT 2X PER WEEK - reports no use 08-05-2024 Alcohol Use Standard Drinks/Week Comments Not Currently 0 (1 standard drink = 0.6 oz pure alcohol) 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 - Occupational Stress Questionnaire Answer Date Recorded [...] GED or equivalent No 07/09/2024 Preferred Language Ghanaian 07/09/2024 PHQ-2 Answer Date Recorded Patient Health Questionnaire-2 Score 0 07/09/2024 Sex and Gender Information Value Date Recorded Sex Assigned at Male 08/20/2024 8:28 PM EDT Legal Sex Male 7:45 AM EDT Gender Identity Not on file Sexual Orientation Not on file documented as of this encounter Miscellaneous Notes * Telephone Encounter - Crystal Saez RegSched Rep - 10/20/2024 10:22 AM EDT Caller: Julien Anderson Relationship: Self Best call back number: [phone] Requested Prescriptions: Requested Prescriptions Pending Prescriptions Disp Refills Bempedoic Acid-Ezetimibe (Nexlizet) 180-10 MG tablet 30 tablet Sig: Take 1 tablet by mouth Daily. riFAXIMin (Xifaxan) 550 MG tablet 180 tablet 0 Sig: Take 1 tablet by mouth Every 12 (Twelve) Hours. levothyroxine (SYNTHROID, LEVOTHROID) 75 MCG tablet 90 tablet 3 Sig: Take 1 tablet by mouth Daily. pantoprazole (PROTONIX) 40 MG EC tablet 90 tablet 3 Sig: Take 1 tablet by mouth Daily. Pharmacy where request should be sent: [facility] [address] [place], [place] [address]DO [address] [phone] [facility] [phone] FX Last office visit with prescribing clinician: 08/05/2024 Last telemedicine visit with prescribing clinician: 08/21/2024 Next office visit with prescribing clinician: 10/27/2024 Additional details provided by patient: PATIENT HAS ONE DAY LEFT Does the patient have less than a 3 day supply: [x] Yes [] No Would you like a call back once the refill request has been completed: [] Yes [x] No If the office needs to give you a call back, can they leave a voicemail: [x] Yes [] No Teetee Ratliff 10/20/24 10:25 EDT documented in this encounter Plan of Treatment Upcoming Encounters Date Type Department Care Team (Late st Contact Info) Description 12/04/2024 2:15 PM EDT Office Visit [facility] PAIN MANAGEMENT [address] [address] Vazquez Christie PA-C [address] [place] [address] documented as of this encounter Visit Diagnoses Diagnosis Hepatic encephalopathy Acquired hypothyroidism Unspecified hypothyroidism Secondary esophageal varices without bleeding documented in this encounter Additional Health Concerns Assessment Noted Time PHQ-2 Depression Total Score: 1 12/31/19 24 3:25 PM EDT documented as of this encounter Care Teams Propeller Engineer Relationship Specialty Start Date End Date Enedina Mcguire APRN [address] [place] [address] PCP - General Nurse Practitioner 09/04/22 10/21/24 documented as of this encounter
--- OUTSIDE RECORDS SUMMARY | 2024-12-02 08:03 | XMS_ITS | Clinical Summary ---
Author Organization [facility] Address [address] [place] [address] Care Team Providers Care Machine Shorthand Reporter Name Role Phone Enedina Mcguire APRN Primary Care Provider + Allergies No known active allergies Medications riFAXIMin (Xifaxan) 550 MG tabletIndications: Hepatic encephalopathy Take 1 tablet by mouth Every 12 (Twelve) Hours. 180 tablet 3 Active folic acid (FOLVITE) 1 MG tablet Take 1 tablet by mouth Daily. 5 Active lactulose (CHRONULAC) 10 GM/15ML solution Take 30 mL by mouth 2 (Two) Times a Day. 5 Active multivitamin with minerals tablet tablet Take 1 tablet by mouth Daily. 5 Active thiamine (VITAMIN B1) 100 MG tablet Take 1 tablet by mouth Daily. 5 Active topiramate (TOPAMAX) 25 MG tablet Take by mouth. 5 Active naloxone (NARCAN) 4 MG/0.1ML nasal spray Administer 1 spray into the nostril(s) as directed by provider. 5 Active lidocaine (LIDODERM) 5 % Place 1 patch on the skin as directed by provider Daily. 5 Active Bempedoic Acid-Ezetimibe (Nexlizet) 180-10 MG tablet Take 1 tablet by mouth Daily. Active levothyroxine (SYNTHROID, LEVOTHROID) 75 MCG tabletIndications: Acquired hypothyroidism Take 1 tablet by mouth Daily. 30 tablet 5 Active pantoprazole (PROTONIX) 40 MG EC tabletIndications: Secondary esophageal varices without bleeding Take 1 tablet by mouth Daily. 30 tablet Active ciprofloxacin (CIPRO) 500 MG tablet Take 1 tablet by mouth Daily. Active FLUoxetine (PROzac) 20 MG capsule Take 1 capsule by mouth Daily. Active lactulose (CHRONULAC) 10 GM/15ML solution solution (encephalopathy) Take 30 mL by mouth 3 (Three) Times a Day. 5 Active loratadine (CLARITIN) 10 MG tablet Take 1 tablet by mouth. Active methocarbamol (ROBAXIN) 500 MG tablet Take 1 tablet by mouth 3 (Three) Times a Day. Active midodrine (PROAMATINE) 10 MG tablet Take 1 tablet by mouth 3 (Three) Times a Day. 5 Active potassium chloride ER (K-TAB) 20 MEQ tablet controlled-release ER tablet Take 2 tablets by mouth Daily. Active torsemide (DEMADEX) 20 MG tablet Active ursodiol (ACTIGALL) 300 MG capsule Take 1 capsule by mouth. Active zinc sulfate (ZINCATE) 220 (50 Zn) MG capsule Take 1 capsule by mouth Daily. Active traMADol (ULTRAM) 50 MG tabletIndications: Cervical pain (neck),Long-term use of high-risk medication Take 1 tablet by mouth Every 12 (Twelve) Hours As Needed for Moderate Pain. 50 tablet Active Active Problems Problem Noted Date Diagnosed Date Liver failure 07/09/2024 Hyperammonemia 07/09/2024 Portal hypertension 07/09/2024 Serous otitis media 03/28/2023 Sinusitis 03/28/2023 Vertigo 03/28/2023 Alcoholic cirrhosis of liver without ascites Esophageal varices in cirrhosis 12/03/2022 Upper GI bleed 07/29/2022 Tobacco abuse 07/29/2022 VANESSA (obstructive sleep apnea) 07/29/2022 Hypomagnesemia 07/29/2022 Left renal mass 07/29/2022 Severe malnutrition 07/06/2022 Hypothyroidism 07/02/2022 GIB (gastrointestinal bleeding) 07/02/2022 Lisfranc dislocation, left, sequela 09/27/2018 Venous stasis 09/27/2018 Hypertension Hyperbilirubinemia Thrombocytopenia Cirrhosis of liver Alcohol dependence Hyperlipidemia Esophageal varices Resolved Problems Problem Noted Date Diagnosed Date Resolved Date NADIYA (acute kidney injury) Acute blood loss anemia 06/15 Hyperkalemia 07/10/2022 Hypomagnesemia 07/10/2022 Encounters Date Type Department Care Team Description 10/27/2024 Telephone [facility] [address] [place] [phone] Enedina Mcguire, VISION SPECIALIST CALLBACK 10/22/2024 2:15 PM EDT Office Visit [facility] [address] [phone] Vazquez Christie PA-C Cervical radiculopathy (Primary Dx); Cervical spondylosis without myelopathy; Cervical pain (neck); Long-term use of high-risk medication; Therapeutic drug monitoring 10/22/2024 Travel 10/21/2024 Telephone [facility] [address] [place] [phone] Enedina Mcguire APRN New Med Request 10/20/2024 Telephone [facility] [address] [phone] BURGESS - RX REFILL 10/20/2024 Telephone [facility] [address] [place] [phone] Enedina Mcguire APRN Med Management 10/20/2024 Refill [facility] [address] [place] [phone] Enedina Mcguire, VISION SPECIALIST Hepatic encephalopathy; Acquired hypothyroidism; Secondary esophageal varices without bleeding 10/17/2024 Telephone [facility] [address] [place] [phone] Enedina Mcguire APRN 10/07/2024 Results Follow-Up [facility] [address] [place] [address] Shayla Enedina G, VISION SPECIALIST 10/07/2024 Results Follow-Up [facility] [address] [place] [phone] Enedina Mcguire, VISION SPECIALIST 09/19/2024 Refill [facility] [address] [place] [address] Enedina Mcguire, VISION SPECIALIST Cervical pain (neck); Long-term use of high-risk medication from Last 3 Months Immunizations Immunization Administration Dates Next Due COVID-19 (MODERNA) 1st,2nd,3 rd Dose Monovalent 03/17/2021,07/25/2020,06/27/2020 Hep B, Unspecified 09/13/2010 Influenza, Unspecified 03/12/2024,03/12/2023 Tdap 06/03/2018,09/13/2010 Varicella 09/13/2010 Family History Medical History Relation Name Comments No Known Problems Brother Arthritis Father Richa Anderson Hyperlipidemia Father Richa Anderson Hypertension Father Richa Anderson Osteoarthritis Father Richa Anderson Alcohol abuse Maternal Grandfather Elton Pascal Stroke Maternal Grandmother Sudha Tenorio Cancer Mother Elle Anderson Osteoarthritis Mother Elle Anderson Stroke Mother Elle Anderson Liver cancer Neg Hx Liver disease Neg Hx Relation Name Status Comments Brother Alive Father Richa Anderson Alive Maternal Grandfather Elton Pascal Maternal Grandmother Sudha Tenorio Mother Elle Anderson Alive Social History Tobacco Use Types Packs/Day Years Used Date Smoking Tobacco: Former Cigarettes 4 20 Passive Smoke Exposure: Past Smokeless Tobacco: Current Comments:MARIJUANA USE ABOUT 2X PER WEEK - reports no use 08-05-2024 Alcohol Use Standard Drinks/Week Comments Not Currently 0 (1 standard drink = 0.6 oz pure alcohol) 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 [facility] Utilities Answer Date Recorded In the past 12 months has e [employer], gas, oil, or water company threatened to [...] Depression Severity Measure Score 0 10/02/2022 [facility] - Occupational [...] GED or equivalent No 07/09/2024 Preferred Language Spanish 07/09/2024 PHQ-2 Answer Date Recorded Patient Health Questionnaire-9 Score 14 10/22/2024 Sex and Gender Information Value Date Recorded Sex Assigned at Male 08/20/2024 8:28 PM EDT Legal Sex Male 7:45 AM EDT Gender Identity Not on file Sexual Orientation Not on file Last Filed Vital Signs Vital Sign Reading Time Taken Comments Blood Pressure 118/62 08/05/2024 3:12 PM EDT Pulse 76 08/05/2024 3:12 PM EDT Temperature 37.5 C (99.5 F) 08/05/2024 3:12 PM EDT Respiratory Rate 16 08/05/2024 3:12 PM EDT Oxygen Saturation 100% 08/05/2024 3:12 PM EDT Inhaled Oxygen Concentration - - Weight 115 kg (253 lb) 10/22/2024 2:29 PM EDT Height 193 cm (6' 4 ) 10/22/2024 2:29 PM EDT Body Mass Index 30.8 10/22/2024 2:29 PM EDT Plan of Treatment Upcoming Encounters Date Type Department Care Team (Late st Contact Info) Description 12/04/2024 2:15 PM EDT Office Visit [facility] [address] [facility] [address] [place] [address] Vazquez Christie PA-C [address] [facility] [address] [place] [address] Health Maintenance Due Date Last Done Comments Hepatitis B (2 of 3 - 19+ 3- dose series) 10/11/2010 09/13/2010 ANNUAL PHYSICAL 10/14/2024 10/15/2023, 10/02/2022 INFLUENZA VACCINE 02/11/2025 03/12/2024, 03/12/2023 LIPID PANEL 10/07/2025 10/07/2024, 03/0 07/2024, 07/14/2024, Additional history exists TDAP/TD VACCINES (3 - Td or Tdap) 06/03/2028 019, 09/13/2010 COVID-19 Vaccine Discontinued 03/17/2021, , 06/27/2020 HEPATITIS C SCREENING Completed 10/25/2024 , 10/25/2024, 10/07/2024, Additional history exists Pneumococcal Vaccine 0-49 Discontinued Medical Devices Implanted Type Area Commercial Management Accountant Device Identifier Shelf Expiration Date Model / Serial / Lot Coil Concerto Pgla Hel Detach Sys 10mm 30cm - [id number] Implanted:Qty: 1 on 07/03/2022 by Timmy Brunner MD at [facility] Implant Left: Vein EV3 A [employer] [id number] / / [id number] Description:Coil is in the s hort gastric vein Coil Concerto Nyl [place] Detach Sys 10mm 30cm - [id number] Implanted:Qty: 1 on 07/03/2022 by Timmy Brunner MD at [facility] Implant Left: Vein EV3 A [employer] [id number] / / [id number] Description:Short gastric ve in Coil Concerto Nyl [place] Detach Sys 10mm 30cm - [id number] Implanted:Qty: 1 on 07/03/2022 by Timmy Brunner MD at [facility] Implant Left: Vein EV3 A [employer] [id number] / / [id number] Description:Short gasrtic ve in Coil Concerto Nyl [place] Detach Sys 10mm 30cm - [id number] Implanted:Qty: 1 on 07/03/2022 by Timmy Brunner MD at [facility] Implant Left: Vein EV3 A [employer] [id number] / / [id number] Description:Short gastric ve in Coil Concerto Nyl [place] Detach Sys 8mm 30cm - [id number] Implanted:Qty: 1 on 07/03/2022 by Timmy Brunner MD at [facility] Implant Left: Vein EV3 A [employer] [id number] / / [id number] Description:Short gastric ve in Coil Concerto Nyl [place] Detach Sys 8mm 30cm - [id number] Implanted:Qty: 1 on 07/03/2022 by Timmy Brunner MD at [facility] Implant Left: Vein EV3 A [employer] [id number] / / [id number] Description:Short gastric ve in Sys Del Liq Emb Trufill Nbca 1g Vl - [id number] Implanted:Qty: 1 on 07/03/2022 by Timmy Brunner MD at [facility] Implant Left: Vein [facility] [id number] / / [id number] Description:Short gastric ve in Plug Vasc Anton Emb Ampltz .027 [id number] - [id number] Implanted:Qty: 1 on 07/03/2022 by Timmy Brunner MD at [facility] Implant Left: Vein [employer] [id number] / / [id number] Description:Coronary vein Coil Concerto Nyl [place] Detach Sys 8mm 30cm - [id number] Implanted:Qty: 1 on 07/03/2022 by Timmy Brunner MD at [facility] Implant Left: Vein EV3 A [employer] [id number] / / [id number] Description:CORONARY VEIN Gelatin Emb Embocube 5.02mm 50mg Red - [id number] Implanted:Qty: 1 on 07/03/2022 by Timmy Brunner MD at [facility] Implant Left: Vein [employer] [id number] / / [id number] Description:SHORT GASTRIC VE IN Coil Emb Dona 3.7/Lp .035in 14cm 12mm - [id number] Implanted:Qty: 1 on 07/03/2022 by Timmy Brunner MD at [facility] Implant Left: Vein DAVID [id number] / / [id number] Description:SHORT GASTRIC VE IN Coil Concerto Pgla [place] Detach Sys 12mm 30cm - [id number] Implanted:Qty: 1 on 07/03/2022 by Timmy Brunner MD at [facility] Implant Left: Vein EV3 A [employer] [id number] / / [id number] Description:Short gastric ve in Coil Concerto Nyl [place] Detach Sys 8mm 30cm - [id number] Implanted:Qty: 1 on 07/03/2022 by Timmy Brunner MD at [facility] Implant Left: Vein EV3 A [employer] [id number] / / [id number] Description:SHORT GASTRIC VE IN Coil Concerto Nyl [place] Detach Sys 8mm 30cm - [id number] Implanted:Qty: 1 on 07/03/2022 by Timmy Brunner MD at [facility] Implant Left: Vein EV3 A [employer] [id number] / / [id number] Description:Short gastric ve in Coil Concerto Nyl [place] Detach Sys 8mm 30cm - [id number] Implanted:Qty: 1 on 07/03/2022 by Timmy Brunner MD at [facility] Implant Left: Vein EV3 A [employer] [id number] / / [id number] Description:Short gastric ve in Coil Concerto Pgla Hel Detach Sys 14mm 40cm - [id number] Implanted:Qty: 1 on 07/03/2022 by Timmy Brunner MD at [facility] Implant Left: Vein EV3 A [employer] [id number] / / [id number] Description:Short gastric ve in Coil Concerto Pgla Hel Detach Sys 14mm 40cm - [id number] Implanted:Qty: 1 on 07/03/2022 by Timmy Brunner MD at [facility] Implant Left: Vein EV3 A [employer] [id number] / / [id number] Description:Short gastric ve in Coil Concerto Pgla [place] Detach Sys 14mm 30cm - [id number] Implanted:Qty: 1 on 07/03/2022 by Timmy Brunner MD at [facility] Implant Left: Vein EV3 A [employer] [id number] / / [id number] Description:Short gastric ve in Coil Concerto Pgla [place] Detach Sys 14mm 30cm - [id number] Implanted:Qty: 1 on 07/03/2022 by Timmy Brunner MD at [facility] Implant Left: Vein EV3 A [employer] [id number] / / [id number] Description:Short gastric ve in Coil Concerto Pgla [place] Detach Sys 14mm 30cm - [id number] Implanted:Qty: 1 on 07/03/2022 by Timmy Brunner MD at [facility] Implant Left: Vein EV3 A [employer] [id number] / / [id number] Description:Short gastric ve in Procedures Procedure Name Priority Date/Time Associated Diagnosis Comments SCANNED - LABS 11/20/2024 SCANNED - LABS 11/20/2024 SCANNED - LABS 11/18/2024 SCANNED - LABS 11/18/2024 SCANNED - LABS 11/18/2024 SCANNED - LABS 11/13/2024 SCANNED - LABS 11/13/2024 SCANNED - LABS 11/13/2024 SCANNED - LABS 11/09/2024 SCANNED - LABS 11/06/2024 SCANNED - LABS 11/06/2024 SCANNED - LABS 11/06/2024 SCANNED - LABS 11/06/2024 SCANNED - IMAGING 10/17/2024 SCANNED - LABS 10/05/2024 SCANNED - LABS 10/05/2024 SCANNED - LABS 10/05/2024 SCANNED - LABS 10/05/2024 SCANNED - LABS 10/05/2024 SCANNED - IMAGING 10/05/2024 SCANNED - IMAGING 10/05/2024 SCANNED - IMAGING 10/05/2024 SCANNED - IMAGING 10/03/2024 SCANNED - LABS 09/26/2024 SCANNED - LABS 09/26/2024 SCANNED - IMAGING 09/26/2024 HEPATITIS PANEL, ACUTE Add-On 07/08/2024 10:33 PM EST LIPID PANEL Routine 10/15/2023 4:16 PM EDT Mixed hyperlipidemia from Last 3 Months or Most Recently Relevant to Health Maintenance Results * LABS SCANNED (11/20/2024) Only the most recent of20 resultswithin the time period is included. Enedina Mcguire APRN LAB BLOOD ORDERABLES Fin al Result * IMAGING SCANNED (10/17/2024) Only the most recent of6 resultswithin the time period is included. Anatomical Region Laterality Modality Radiographic Rachel ging us Enedina Mcguire APRN IMG DIAGNOSTIC IMAGING O RDERABLES Final Result from Last 3 Months Insurance [facility] Advance Directives * CPR (Attempt to Resuscitate) (Latest Code Status on File) Date Activated Date Inactivated Comments 07/09/2024 2:52 AM 07/12/2024 12:54 AM Question Answer Comments Code Status (Patient has no pulse and is not breathing): CPR (Attempt to Resuscitate) Medical Interventions (Patie nt has pulse or is breathing): Full Support * CPR (Attempt to Resuscitate) Date Activated Date Inactivated Comments 07/29/2022 2:22 AM 07/30/2022 1:16 PM Question Answer Comments Code Status (Patient has no pulse and is not breathing): CPR (Attempt to Resuscitate) Medical Interventions (Patie nt has pulse or is breathing): Full Support Level Of Support Discussed With: Patient * CPR (Attempt to Resuscitate) Date Activated Date Inactivated Comments 07/02/2022 5:16 PM 07/10/2022 7:04 PM Question Answer Comments Code Status (Patient has no pulse and is not breathing): CPR (Attempt to Resuscitate) Medical Interventions (Patie nt has pulse or is breathing): Full Support Level Of Support Discussed With: Patient Care Teams Machine Shorthand Reporter Relationship Specialty Start Date End Date Enedina Mcguire APRN [address] [place] [address] PCP - General Nurse Practitioner 10/27/24
--- OUTSIDE RECORDS SUMMARY | 2024-12-02 08:03 | XMS_ITS | Encounter Summary ---
Author Organization [facility] Address [address] [place] [address] Care Team Providers Care Staff Antisubmarine Officer Name Role Phone Enedina Mcguire NP Primary Care Provider + [phone] Maureen Pantoja RN Unavailable Unavail able Source [...] release of HIV test results or diagnoses. [id number] Health Encounter Details Date Type Department Care Team (Late st Contact Info) Description 11/04/2024 Nutrition [facility] Transplant at [address] [place] [phone] Ben Weiss, DMITRY Social History Tobacco Use [...] months has [employer], gas, oil, or water [employer] threatened to shut off services in your [...] day. blood-glucose meter (TRUE METRIX GLUCOSE METER) [facility] Use to test blood sugar up to [...] = 12 units lancets (ACCU-CHEK SOFTCLIX LANCETS) [facility] Use to test blood sugar up to [...] times a day. naloxone (NARCAN) 4 mg/actuation Lyon Apply 1 spray in one nostril if [...] documented as of this encounter Care Teams Staff Antisubmarine Officer Relationship Specialty Start Date End Date Enedina Mcguire NP [address] [place] [address] PCP - General Internal Medicine 10/05/24 Maureen Pantoja, RN Txp Post Coordinator Transplant Hepatology 10/28/24 documented as of this encounter
[2024-12-02 08:05] LABS: Microscopic, Urine URINE MICROSCOPIC (MICROSCOPIC)
--- OUTSIDE RECORDS SUMMARY | 2024-12-02 08:05 | XMS_ITS | Encounter Summary ---
Author Organization [facility] Address [facility] [place] [address] Care Team Providers Care Deportation Officer Name Role Phone Enedina Mcguire NP Primary Care Provider + [phone] Maureen Pantoja RN Unavailable Unavail able Source [...] release of HIV test results or diagnoses. [id number] Health Encounter Details Date Type Department Care [...] Recorded In the past 12 months has [employer], [employer], oil, or water [employer] threatened to shut off services in your [...] documented as of this encounter Care Teams Deportation Officer Relationship Specialty Start Date End Date Enedina Mcguire NP [address] [place] [address] PCP - General Internal Medicine 10/05/24 Maureen Pantoja, ЮЛИЯ Txp Post Coordinator Transplant Hepatology 10/28/24 documented as of this encounter
--- OUTSIDE RECORDS SUMMARY | 2024-12-02 08:05 | XMS_ITS | Encounter Summary ---
Author Organization [facility] Address [address] [place] [address] Care Team Providers Care Legal Recruiter Name Role Phone Enedina Mcguire NP Primary Care Provider + [phone] Maureen Pantoja RN Unavailable Unavail able Source [...] release of HIV test results or diagnoses. [id number] Health Encounter Details Date Type Department Care Team (Late st Contact Info) Description 10/29/2024 Education Chart Note [facility] Liver Transplant at [address] [place] [phone] Crista Power, RN Social History Tobacco [...] Recorded In the past 12 months has [employer], gas, oil, or water [employer] threatened to shut off services in your [...] of Infection/Rejection [x] 5. When to call trauma coordinator [x] 6. Outpatient follow up including [...] times 0900/2100. Julien Anderson has to use [facility]. Meds are getting delivered 10/31/24. documented in this encounter Plan of Treatment Not on file documented as of this encounter Visit Diagnoses Not on filedocumented in this encounter Additional Health Concerns Assessment Noted Time PHQ-9 Depression Total Score: 17 025 11:00 AM EDT documented as of this encounter Care Teams Legal Recruiter Relationship Specialty Start Date End Date Enedina Mcguire NP [address] [place] [address] PCP - General Internal Medicine 10/05/24 Maureen Pantoja, ЮЛИЯ Txp Post Coordinator Transplant Hepatology 10/28/24 documented as of this encounter
--- OUTSIDE RECORDS SUMMARY | 2024-12-02 08:06 | XMS_ITS | Encounter Summary ---
Author Organization [facility] Address [address] [place] [address] Care Team Providers Care Home Hospice Rn Name Role Phone Enedina Mcguire NP Primary Care Provider + [phone] Maureen Pantoja RN Unavailable Unavail able Source [...] release of HIV test results or diagnoses. [id number] Health Encounter Details Date Type Department Care Team (Late st Contact Info) Description 11/03/2024 Telephone [facility] Liver Transplant at [address] [place] [phone] Marisela Martinez MA Social History Tobacco [...] Recorded In the past 12 months has [employer], gas, oil, or water [employer] threatened to shut off services in your [...] he will have his labs drawn at [facility] prior to clinic on 11/03. documented in [...] documented as of this encounter Care Teams Home Hospice Rn Relationship Specialty Start Date End Date Enedina Mcguire NP [address] [place] [address] PCP - General Internal Medicine 10/05/24 Maureen Pantoja, ЮЛИЯ Txp Post Coordinator Transplant Hepatology 10/28/24 documented as of this encounter
--- OUTSIDE RECORDS SUMMARY | 2024-12-02 08:06 | XMS_ITS | Encounter Summary ---
Author Organization [facility] Address [address] [place] [address] Care Team Providers Care Jockey Valet Name Role Phone Enedina Mcguire NP Primary Care Provider [phone] Source Comments This information has been disclosed [...] release of HIV test results or diagnoses. [id number] Health Encounter Details Date Type Department Care Team (Late st Contact Info) Description 10/17/2024 Pharmacy Services [facility] [address] [place] [phone] Qu, Ridge, RPh Social History Tobacco [...] Recorded In the past 12 months has [employer], gas, oil, or water company threatened to [...] this encounter Progress Notes * Ridge Menjivar, [facility] - 10/17/2024 9:47 AM EDT [...] member, friend, or other person (including a retail loan officer). The at-risk individual reports no known [...] documented as of this encounter Care Teams Jockey Valet Relationship Specialty Start Date End Date Enedina Mcguire NP [address] [place] [address] PCP - General Internal Medicine 10/05/24 documented as of this encounter
--- OUTSIDE RECORDS SUMMARY | 2024-12-02 08:06 | XMS_ITS | Encounter Summary ---
Author Organization [facility] Address [address] [place] [id number] Care Team Providers Care Bag Bundler Name Role Phone Enedina Mcguire NP Primary Care Provider + [phone] Maureen Pantoja RN Unavailable Unavail able Source [...] release of HIV test results or diagnoses. [id number] Health Encounter Details Date Type Department Care Team (Late st Contact Info) Description 11/03/2024 Chart Note [facility] Transplant at [address] [place] [phone] Hillary Fernandes, [facility] Discharge [...] In the past 12 months has e [employer], gas, oil, or water [employer] threatened to shut off services in your [...] day. blood-glucose meter (TRUE METRIX GLUCOSE METER) [facility] Use [...] times a day. 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
--- OUTSIDE RECORDS SUMMARY | 2024-12-02 08:07 | XMS_ITS | Clinical Summary ---
Author Organization [facility] Address [facility] [place] [facility] [place] [address] Care Team Providers Care Claims Adjuster Supervisor Name Role Phone Enedina Mcguire NP Primary Care Provider + [phone] Maureen Pantoja RN Unavailable Unavail able Source [...] therelease of HIV test results or diagnoses. [id number] Allergies Active Allergy Reactions Criticality Noted [...] EDT 025 Active naloxone (NARCAN) 4 mg/actuation [place] Apply 1 spray in one nostril if [...] Active blood-glucose meter (TRUE METRIX GLUCOSE METER) [facility] Use to test blood sugar up to 4 times a day. 1 each 11/03/19 10:20 AM EDT Active blood sugar diagnostic (GLUCOSE BLOOD) Strp Use to test blood sugar up to 4 times a day. 100 strip 11 11/03/19 10:20 AM EDT Active lancets (ACCU-CHEK SOFTCLIX LANCETS) [facility] Use to test blood sugar up to [...] Encounter for therapeutic drug monitoring,S/P liver transplant ([facility]Hypomagn esemia,Kidney transplant recipient,Hyperten kevin, unspecified type,Gastroesophag eal reflux disease, unspecified whether esophagitis present Take 3 tablets (975 mg total) by mouth every 8 hours. 200 tablet Active ergocalciferol (ERGOCALCIFEROL) 1,250 mcg (50,000 unit) capsuleIndications :Encounter for therapeutic drug monitoring,S/P liver transplant ([facility]),Hypomagn esemia,Kidney transplant recipient,Hyperten kevin, unspecified type,Gastroesophag eal reflux disease, unspecified whether esophagitis present Take 1 capsule (50,000 Units total) by mouth once a week. 4 capsule 2 025 Active famotidine (PEPCID) 20 MG tabletIndications: Encounter for therapeutic drug monitoring,S/P liver transplant ([facility]),Hypomagn esemia,Kidney transplant recipient,Hyperten kevin, unspecified type,Gastroesophag eal reflux disease, unspecified whether esophagitis present Take 1 tablet (20 mg total) by mouth 2 times a day. 60 tablet 2 025 Active NIFEdipine (PROCARDIA-XL) 30 MG (OSM) 24 hr tabletIndications: Encounter for therapeutic drug monitoring,S/P liver transplant ([facility]),Hypomagn esemia,Kidney transplant recipient,Hyperten kevin, unspecified type,Gastroesophag eal [...] Encounter for therapeutic drug monitoring,S/P liver transplant ([facility]),Hypomagn esemia,Kidney transplant recipient,Hyperten kevin, unspecified type,Gastroesophag eal reflux disease, unspecified whether esophagitis present Take 1 tablet by mouth daily. 30 tablet 2 Active valGANciclovir (VALCYTE) 450 mg tabletIndications: Encounter for therapeutic drug monitoring,S/P liver transplant ([facility]),Hypomagn esemia,Kidney transplant recipient,Hyperten kevin, unspecified type,Gastroesophag eal reflux disease, unspecified whether esophagitis present Take 1 tablet (450 mg total) by mouth daily. 30 tablet 2 Active mycophenolate (CELLCEPT) 250 mg capsuleIndications :Encounter for therapeutic drug monitoring,S/P liver transplant ([facility]),Hypomagn esemia,Kidney transplant recipient,Hyperten kevin, unspecified type,Gastroesophag eal [...] :Encounter for therapeutic drug monitoring,S/P liver transplant ([facility]),Hypomagn esemia,Kidney transplant recipient,Hyperten kevin, unspecified type,Gastroesophag eal [...] (10 mg total) by mouth daily. Active FLUoxetine (PROZAC) 20 MG capsule Take 1 capsule (20 mg total) by mouth daily. 30 capsule 2 10/18/19 25 10:24 AM EDT 11/20 Discontinued( Refill / Reorder) ergocalciferol (ERGOCALCIFEROL) 1,250 mcg (50,000 unit) capsule Take 1 capsule (50,000 Units total) by mouth once a week. 4 capsule 2 11/03/19 25 10:20 AM EDT 11/25 Discontinued( Refill / Reorder) sulfamethoxazole-t rimethoprim (BACTRIM) 400-80 mg per tablet Take 1 tablet by mouth daily. 30 tablet 2 11/03/19 25 10:20 AM EDT 11/25 Discontinued( Refill / Reorder) predniSONE (DELTASONE) 5 MG tablet Take 4 tablets (20 mg total) by mouth daily. 120 tablet 2 11/03/19 25 10:20 AM EDT 11/11 Discontinued valGANciclovir (VALCYTE) 450 mg tablet Take 1 tablet (450 mg total) by mouth daily. 30 tablet 2 11/03/19 25 10:20 AM EDT 11/25 Discontinued( Refill / Reorder) acetaminophen (TYLENOL) 325 MG tablet Take 3 tablets (975 mg total) by mouth every 8 hours. 200 tablet 11/03/19 10:20 AM EDT 11/25 Discontinued( Refill / Reorder) famotidine (PEPCID) 20 MG tablet Take 1 tablet (20 mg total) by mouth 2 times a day. 60 tablet 2 11/03/19 25 10:20 AM EDT 11/25 Discontinued( Refill / Reorder) mycophenolate (CELLCEPT) 250 mg capsule Take 2 capsules (500 mg total) by mouth 2 times a day. 120 capsule 5 11/25 Discontinued( Refill / Reorder) sodium bicarbonate 650 MG tablet Take 2 tablets (1,300 mg total) by mouth 2 times a day. 28 tablet 11/03/19 25 10:20 AM EDT 11/04 Discontinued( Therapy Completed [...] days. 28 tablet 11/03/19 10:20 AM EDT 11/04 Discontinued( Refill / Reorder) NIFEdipine (PROCARDIA-XL) 30 MG (OSM) 24 hr tablet Take 1 tablet (30 mg total) by mouth daily. 30 tablet 11/03/19 10:20 AM EDT 11/25 Discontinued( Refill / Reorder) torsemide (DEMADEX) 20 MG tablet Take 1 [...] Discontinued( Therapy Completed / No Longer Needed) linezolid (ZYVOX) 600 mg tablet Take 1 [...] up to 7 days. 28 tablet 025 11/11 Discontinued( Refill / Reorder) torsemide (DEMADEX) [...] for up to 7 days. 28 tablet 11/25 Discontinued( Refill / Reorder) sodium bicarbonate 650 MG tabletIndications: metabolic acidosis Take 1 tablet (650 mg total) by mouth 2 times a day. Indications: metabolic acidosis 60 tablet 025 11/25 Discontinued( Refill / Reorder) gabapentin (NEURONTIN) 100 MG capsuleIndications :Encounter for therapeutic drug monitoring,S/P liver transplant ([facility]),Hypomagn esemia,Kidney transplant recipient,Hyperten kevin, unspecified type,Gastroesophag eal reflux disease, unspecified whether esophagitis present Take 1 capsule (100 mg total) by mouth 3 times a day. 90 capsule 11/25 Discontinued( Refill / Reorder) tacrolimus (PROGRAF) 1 MG capsuleIndications :Encounter for therapeutic drug monitoring,S/P liver transplant ([facility]),Hypomagn esemia,Kidney transplant recipient,Hyperten kevin, unspecified type,Gastroesophag eal reflux disease, unspecified whether esophagitis present Take 6 capsules (6 mg total) by mouth 2 times a day. Use as directed 600 capsule 5 11/25 Discontinued Hospital, Clinic, or Other Facility Administered Medication Ordered Dose Route Frequency Start Date End Date Status lidocaine HCL (XYLOCAINE) 2 % JelP 10 mLIndications:Retained ureteral stent of transplanted kidney ([facility]) 10 mL MM Once 11/25/2024 11/25/2024 Ended [...] with SBP, s/p CTX x5d; will cont director it project ppx with Cipro 500mg daily - HE: [...] Encounters Date Type Department Care Team Description 12/01/2024 Telephone [facility] at [address] [address] Gladis Chisholm MA 11/27/2024 Telephone [facility] at [address] [place] [address] Maureen Pantoja, RN Results 11/27/2024 Chart Note [facility] at [address] [place] [address] Marlene Ro MA FK Pending 11/27 Labs 11/26/2024 Telephone [facility] at [address] [place] [address] Maureen Pantoja, RN Results 11/25/2024 10:50 AM EDT Office Visit [facility] at [address] [place] [address] Leisa Juarez MD Kaur, Taranpreet NADIYA (acute kidney injury) ([facility]) (Primary Dx); Kidney replaced by transplant; Metabolic acidosis; Hypervolemia associated with renal insufficiency 11/25/2024 10:20 AM EDT Office Visit [facility] at [address] [place] [phone] Lydia Sanchez MD Encounter for therapeutic drug monitoring (Primary Dx); S/P liver transplant ([facility]); Hypomagnesemia; Kidney transplant recipient; Hypertension, unspecified type; Gastroesophageal reflux disease, unspecified whether esophagitis present; Abdominal pain, unspecified abdominal location 11/25/2024 9:00 AM EDT Procedure visit [facility] [address] [facility] [address] [place] [phone] Julieta Rogers PA Retained ureteral stent of transplanted kidney ([facility]) (Primary Dx) 11/25/2024 Social Work [facility] at [address] [place] [address] Kaylin Willard MSW 11/24/2024 Orders Only [facility] at [address] [place] [address] Maureen Pantoja, ЮЛИЯ 11/21/2024 Orders Only [facility] [address] [facility] [address] [place] [address] Vasile Gordillo MA 11/21/2024 Telephone [facility] at [address] [place] [address] Maureen Pantoja, RN Results 11/21/2024 Chart Note [facility] at [place] [address] [place] [address] Marlene Ro MA FK: 11/18 & 11/20 Pending 11/20/2024 Refill [facility] at [address] [place] [address] Maureen Pantoja, RN 11/20/2024 Refill [facility] at [place] [address] [place] [address] Maureen Pantoja, ЮЛИЯ 11/20/2024 Orders Only [facility] at [place] [address] [place] [address] Maureen Pantoja, RN S/P liver transplant ([facility]) (Primary Dx); Immunosuppression ([facility]); Viral disease exposure; Alcohol use 11/18/2024 Telephone [facility] at [place] [address] [place] [address] Maureen Pantoja, RN Results 11/18/2024 Chart Note [facility] at [address] [place] [address] Marlene Ro MA 11/11/2024 10:30 AM EDT Office Visit [facility] at [address] [place] [address] Unknown, Attending Provider Jessica Colon Kidney replaced by transplant (Primary Dx); Hypervolemia associated with renal insufficiency 11/11/2024 10:00 AM EDT Office Visit [facility] at [address] [place] [address] Cosmo Pacheco MD Quillin, Ralph Cutler III, MD Encounter for therapeutic drug monitoring (Primary Dx); Abdominal pain, unspecified abdominal location 11/11/2024 9:30 AM EDT Office Visit [facility] at [place] [address] [place] [address] Lizeth Warren PsyD PTSD (post-traumatic stress disorder) (Primary Dx) 11/11/2024 8:50 AM EDT [facility] [address] [place] [address] Harvey Domínguez III, MD Liver replaced by transplant ([facility]); Immunosuppressive management encounter following liver transplant ([facility]); Kidney transplant recipient 11/11/2024 Telephone [facility] at [address] [address] Maureen Pantoja, RN Results 11/10/2024 Orders Only [facility] at [address] [address] Maureen Pantoja, RN Liver transplant recipient ([facility]) (Primary Dx); Kidney transplant recipient; Immunosuppressive management encounter following liver transplant ([facility]) 11/10/2024 Orders Only [facility] at [place] [address] [place] [address] Maureen Pantoja, RN 11/09/2024 Telephone [facility] [address] [place] [address] Unknown, Attending Provider After Hours Call (Passing blood through stool states started this morning has had 3 bloody bowel movements kidney and liver txp done 2 weeks ago) 11/07/2024 Telephone [facility] at [place] [address] [place] [address] Marlene Ro MA 11/07/2024 Telephone [facility] at [place] [address] [place] [address] Maureen Pantoja, RN Results 11/07/2024 Chart Note [facility] at [place] [address] [place] [address] Marlene Ro MA FK Pending 11/04/2024 10:10 AM EDT Office Visit [facility] at [address] [address] Leisa Juarez MD Kidney transplant recipient (Primary Dx); Diarrhea of presumed infectious origin; Hypomagnesemia; Hypervolemia, unspecified hypervolemia type; Liver transplant recipient (CMS-HCC); Other hypervolemia; Hyperparathyroidism (CMS-HCC); Nausea and vomiting, unspecified vomiting type 11/04/2024 8:40 AM EDT Office Visit [facility] at [place] [address] [place] [address] Cosmo Pacheco MD Liver transplant recipient (CMS-HCC) (Primary Dx); Alcoholic cirrhosis of liver with ascites (CMS-HCC); Kidney transplant recipient; Acute kidney injury superimposed on CKD (CMS-HCC); CKD (chronic kidney disease) stage 4, GFR 15-29 ml/min (CMS-HCC); Immunosuppressive management encounter following liver transplant (CMS-HCC); Abdominal pain, unspecified abdominal location 11/04/2024 Telephone [facility] at [place] [address] [place] [address] Maureen Pantoja, RN Results 11/04/2024 Results Follow-Up [facility] at [address] [place] [address] Maureen Pantoja, RN Tacrolimus level, Hepatic Function Panel, Renal Function Panel w/EGFR, Additional followed-up results: 3 11/04/2024 Social Work [facility] at [address] [place] [phone] Kaylin Willard MSW 11/04/2024 Nutrition [facility] at [address] [place] [address] Ben Weiss, DMITRY 11/03/2024 Chart Note [facility] at [address] [place] [address] Hillary Fernandes, [facility] Liver Transplant Pharmacy Discharge Note 11/03/2024 Telephone [facility] at [address] [place] [address] Marisela Martinez MA 10/31/2024 Orders Only [facility] at [address] [place] [phone] Harvey Domínguez III, MD Liver replaced by transplant ([facility]) (Primary Dx); Immunosuppressive management encounter following liver transplant ([facility]) 10/29/2024 Travel 10/29/2024 Education Chart Note [facility] at [address] [place] [address] Crista Power RN 10/27/2024 2:34 AM EDT Anesthesia Event [facility] [address] [place] [address] Rocky Manning MD Kopel, Lior, MD 10/27/2024 2:00 AM EDT - 10/27/2024 6:54 AM EDT Surgery [facility] [address] [place] [address] Harvey Domínguez III, MD Donor Kidney Transplant , Back Bench Preparation Donor Kidney, Baseline Kidney transplant biopsy , Insertion of Indwelling Stent , Removal of Perihepatic packing 10/27/2024 Pharmacy Services [facility] [address] [place] [address] Opal Cox, Lissett 10/27/2024 Chart Note [facility] at [address] [place] [address] Karen Rosen, RN I have verified that the donor serologies entered in Epic match the donor 10/27/2024 Chart Note [facility] at [address] [place] [address] Crista Power, RN I introduced myself as inpatient liver/kidney rental coordinator, 10/27/2024 Orders Only [facility] [address] [place] [address] Abdulkadir Gaspar MD 10/26/2024 Chart Note [facility] at [address] [place] [address] Geri Vasquez RN 10/26/2024 Chart Note [facility] at [address] [place] [address] Geri Vasquez RN 10/25/2024 10:54 PM EDT Anesthesia Event [facility] [place] [place] [address] Eber Quinones MD Edwards, Anna, MD 10/25/2024 10:30 PM EDT - 10/26/2024 6:12 AM EDT Surgery [facility] [address] [facility] [address] Harvey Domínguez III, MD LIVER TRANSPLANT 10/25/2024 8:46 PM EDT - 11/02/2024 6:23 PM EDT Hospital Encounter [facility] [address] [place] [address] Harvey Domínguez III, MD Haugen, Christine, MD Acute kidney injury superimposed on CKD (CMS-HCC) (Primary Dx); Prophylactic antibiotic; Prolonged QT interval; Immunosuppression (CMS-HCC); Abdominal pain, unspecified abdominal location Discharge Disposition: Home or Self Care WITHOUT Home Care Services 10/25/2024 Travel 10/25/2024 Telephone [facility] at [address] [address] Krissy Crowell, RN DDLT patient instructions 10/25/2024 Telephone [facility] at [address] [address] Krissy Crowell, ЮЛИЯ 10/24/2024 Telephone [facility] at [address] [place] [address] Joann Davies, RAFFI Appointment 10/22/2024 Telephone [facility] at [address] [address] Mary Butler RN 10/22/2024 Chart Note [facility] at [address] [address] Gladis Rainey RN Received most recent eGFR from today with result of 21. Pt meets CKD 10/22/2024 Chart Note [facility] [place] [address] [place] [address] Faraz Carballo, ЮЛИЯ 2nd ABO verified for [facility] listing at the request of JOSE G Butler. 10/22/2024 Telephone [facility] at [address] [phone] Lizeth Warren PsyD 10/22/2024 Chart Note [facility] [address] [place], [place] [phone] Aaron Gonzalez MD Candidacy for a simultaneous liver-kidney transplant 10/22/2024 Status Update [facility] at [address] [place] [phone] Aaron Gonzalez MD 10/22/2024 Chart Note [facility] at [address] [place] [address] Mary Butler, RN UNOS VERIFICATION CHECK FORM 10/22/2024 Orders Only [facility] [address] [place] [address] Abdulkadir Gaspar MD 10/22/2024 Chart Note [facility] at [address] [place] [address] Mary Butler RN 10/21/2024 Telephone [facility] [address] [facility] [address] [place] [address] Gerri Peterson MD Medication Management (Requesting RX for New Medication ) 10/21/2024 Refill [facility] [address] [facility] [address] [place] [phone] Gerri Peterson MD 10/20/2024 9:10 AM EDT - 10/20/2024 11:59 PM EDT Hospital Encounter [facility] [address] [place] [phone] System, Provider Not In Discharge Disposition: Home or Self Care WITHOUT Home Care Services 10/20/2024 9:10 AM EDT - 10/20/2024 11:59 PM EDT Hospital Encounter [facility] [address] [place] [address] System, Provider Not In Discharge Disposition: Home or Self Care WITHOUT Home Care Services 10/20/2024 9:10 AM EDT - 10/20/2024 11:59 PM EDT Hospital Encounter [facility] [address] [place] [address] System, Provider Not In Discharge Disposition: Home or Self Care WITHOUT Home Care Services 10/20/2024 9:10 AM EDT - 10/20/2024 11:59 PM EDT Hospital Encounter [facility] [address] [place] [address] System, Provider Not In Discharge Disposition: Home or Self Care WITHOUT Home Care Services 10/20/2024 9:10 AM EDT - 10/20/2024 11:59 PM EDT Hospital Encounter [facility] [address] [place] [address] System, Provider Not In Discharge Disposition: Home or Self Care WITHOUT Home Care Services 10/20/2024 9:10 AM EDT - 10/20/2024 11:59 PM EDT Hospital Encounter [facility] [address] [place] [address] System, Provider Not In Discharge Disposition: Home or Self Care WITHOUT Home Care Services 10/20/2024 9:10 AM EDT - 10/20/2024 11:59 PM EDT Hospital Encounter [facility] [address] [place] [address] System, Provider Not In Discharge Disposition: Home or Self Care WITHOUT Home Care Services 10/20/2024 Orders Only [facility] [address] [place] [address] Abdulkadir Gaspar MD 10/20/2024 Telephone [facility] [address] [place] [phone] Gerri Peterson MD Prescription Issue (RX Clarification Request ) 10/20/2024 Refill [facility] Office [address] [facility] [address] [place] [phone] Gerri Peterson MD 10/20/2024 Telephone [facility] at [address] [address] Mary Butler, ЮЛИЯ 10/17/2024 Chart Note [facility] at [address] [address] Anny Cote, RN Copy of HLA report scanned into the media tab. Will follow up on GFR 10/17/2024 Chart Note [facility] at [address] [address] Anny Cote RN 10/17/2024 Pharmacy Services [facility] [address] [place] [address] Ridge Menjivar RPh 10/14/2024 8:42 AM EDT - 10/14/2024 9:27 AM EDT Surgery [facility] [employer] [address] [place] [phone] Irving Matta MD Left Heart Cath 10/14/2024 Chart Note [facility] at [address] [phone] Dean Robles [facility] [address] 10/10/2024 12:01 PM EDT Anesthesia Event [facility] ENDOSCOPY [address] [place] [phone] BhatCady MD Nguyen, Quinn, MD 10/10/2024 10:36 AM EDT - 10/10/2024 11:06 AM EDT Surgery [facility] ENDOSCOPY [address] [place] [address] Lino Soto MD EGD 10/09/2024 Social Work [facility] at [address] [address] Kaylin Willard MSW 10/09/2024 Chart Note [facility] at [address] [address] Dean Robles [facility] [address] call from [facility] fx [phone] 10/09/2024 Chart Note [facility] [place] [address] [place] [address] Dean Robles [facility] [address] 10/07/2024 Chart Note [facility] [place] [address] [place] [address] Mary Butler, RN Spoke with Blair Anderson today for evaluation for a combined liver and 10/07/2024 Chart Note [facility] [place] [address] [place] [address] Anny Cote, ЮЛИЯ Received notice of in house evaluation. Message to nephrology 10/07/2024 Chart Note [facility] [place] [address] [place] [address] Chey Nicole MA This MA received new referral for PT. Will FU once financially cleared. 10/07/2024 Chart Note [facility] at [address] [place] [address] Anny Cote RN Simultaneous Liver-Kidney Transplant Referral 10/06/2024 Travel 10/05/2024 11:12 PM EDT - 10/17/2024 10:29 AM EDT Hospital Encounter [facility] [address] [place] [phone] Gómez Blanchard MD Wood, Sharice N, MD [...] Care WITHOUT Home Care Services 10/05/2024 Telephone [facility] [address] [place], [place] [phone] Unknown, Attending Provider After Hours Call 10/01/2024 Telephone [facility] at [address] [place] [address] Armand Salinas RN 09/30/2024 Social Work [facility] at [address] [place] [phone] Kaylin Willard MSW 09/29/2024 11:00 AM EDT Office Visit [facility] at [address] [place] [address] Lizeth Warren PsyD PTSD (post-traumatic stress disorder) (Primary Dx); Alcohol use disorder 09/26/2024 Abstract [facility] [address] [facility] [address] [place] [address] Gerri Peterson MD 09/25/2024 11:25 AM EDT [facility] [facility] [address] [place] [address] [phone] Gerri Peterson MD Cirrhosis of liver with ascites, unspecified hepatic cirrhosis type (CMS-HCC); Pre-transplant evaluation for chronic liver disease; Alcoholic cirrhosis of liver without ascites (CMS-HCC) 09/25/2024 Social Work [facility] at [address] [place] [address] Kaylin Willard MSW 09/25/2024 Telephone [facility] [address] [place] [address] [phone] Thad De Leon Appointment 09/25/2024 Orders Only [facility] at [address] [place] [address] Mary Butler, ЮЛИЯ Pre-transplant evaluation for chronic liver disease (Primary Dx); Alcoholic cirrhosis of liver without ascites (CMS-HCC) 09/24/2024 Orders Only [facility] [address] [facility] [address] [place] [address] Gerri Peterson MD Cirrhosis of liver with ascites, unspecified hepatic cirrhosis type (CMS-HCC) (Primary Dx) 09/24/2024 Orders Only [facility] [address] [facility] [address] [place] [address] Gerri Peterson MD Cirrhosis of liver with ascites, unspecified hepatic cirrhosis type (CMS-HCC) (Primary Dx) 09/23/2024 Telephone [facility] [address] [facility] [address] [place] [address] Gerri Peterson MD Orders (Order Clarification Request/) 09/22/2024 Telephone [facility] [address] [facility] [address] [place] [address] Gerri Peterson MD Orders (Order Clarification Request ) 09/17/2024 Telephone [facility] at [address] [place] [phone] Kaylin Willard, HISTOLOGY AIDE 09/17/2024 Abstract [facility] [address] [facility] [address] [place] [address] Gerri Peterson MD 09/17/2024 Telephone [facility] at [address] [place] [address] Kaylin Willard, HISTOLOGY AIDE 09/16/2024 Telephone [facility] [address] [facility] [address] [place] [address] Gerri Peterson MD Medical Management (Plan of Care Inquiry/Question ) 09/10/2024 Telephone [facility] at [address] [place] [address] Kaylin Willard, HISTOLOGY AIDE 09/05/2024 Orders Only [facility] [address] [facility] [address] [place] [address] Chris Orosco MD Cirrhosis of liver with ascites, unspecified hepatic cirrhosis type (CMS-HCC) (Primary Dx) 09/05/2024 Travel 09/03/2024 4:56 AM EDT - 09/09/2024 6:25 PM EDT Hospital Encounter [facility] [address] [place] [address] Sabedra, Ana Maria, MD BishopJarrod taylor MD Morgenlander, Adam M, MD Liebler, Hillary, MD Stickles, Allison Michele, MD Alcoholic cirrhosis of liver with ascites (CMS-HCC) (Primary Dx); Abdominal pain, unspecified abdominal location; NADIYA (acute kidney injury) (CMS-HCC) [N17.9] Discharge Disposition: Home or Self Care WITHOUT Home Care Services 09/03/2024 Telephone [facility] [address] [place] [phone] Thad De Leon Appointment 09/02/2024 4:00 PM EDT [facility] [address] [facility] [address] [place] [phone] Doron Botello MD Alcoholic cirrhosis of liver without ascites (CMS-HCC); Cirrhosis of liver with ascites, unspecified hepatic cirrhosis type (CMS-HCC) 09/02/2024 2:40 PM EDT Office Visit [facility] [address] [facility] [address] [place] [phone] Gerri Peterson MD Cirrhosis of liver with ascites, unspecified hepatic cirrhosis type (CMS-HCC) (Primary Dx); Alcoholic cirrhosis of liver without ascites (CMS-HCC) 09/02/2024 Orders Only [facility] [address] [place], [place] [phone] Noé Giordano MD Hypokalemia (Primary Dx) 09/02/2024 Telephone [facility] [address] [place], [place] [phone] Unknown, Attending Provider After Hours Call 09/02/2024 Orders Only [facility] at [facility] [address] [facility] [address] [place] [phone] Mary Butler RN Pre-transplant evaluation for chronic liver disease (Primary Dx); Alcoholic cirrhosis of liver without ascites (CMS-HCC) 09/02/2024 Telephone [facility] [address] [facility] [address] [place] [address] Gerri Peterson MD Orders (Order Request (New) ) 09/02/2024 Telephone [facility] [address] [facility] [address] [place] [address] Chris Orosco MD from Last [...] the past 12 months has th e [employer], gas, oil, or water [email or web address] threatened to shut off services in your [...] 11/25/2024 10:39 AM EDT Plan of Treatment Health Maintenance Due Date Last Done Comments [...] 11/25/2024, 09/29/2024, Additional history exists Renal Function/GFR 11/27/2025 11/27/2024, 0 11/25/2024, 11/20/2024, Additional history exists Immunization: DTaP/Tdap/Td ( 3 - Td or Tdap) 06/03/2028 06/03/2018, 09/13/2010 Hepatitis C Screening (MyChart) Completed 10/25/2024, 10/07/2024, 10/06/2024, Additional history exists HIV Screening Completed 11/25/2024, 10/12, 10/07/2024 Procedures Procedure Name Priority Date/Time Associated Diagnosis Comments TACROLIMUS LEVEL Routine 11/27/2024 7:50 AM EDT RENAL FUNCTION PANEL W/O EGFR Routine 11/27/2024 7:50 AM EDT PROTIME-INR Routine 11/27/2024 7:50 AM EDT CBC AND DIFFERENTIAL Routine 11/27/2024 7:50 AM EDT HEPATIC FUNCTION PANEL Routine 7:50 AM EDT PHOSPHATIDYLETHANOL CONFIRMATION, B Routine 11/25/2024 8:42 AM EDT S/P liver transplant (CMS-HCC) Immunosuppression (CMS-HCC) Alcohol use HIV-1 RNA, QUANTITATIVE, PCR Routine 11/25/2024 8:42 AM EDT S/P liver transplant (CMS-HCC) Immunosuppression (CMS-HCC) Viral disease exposure HEPATITIS C RNA, QUANTITATIVE PCR Routine 11/25/2024 8:42 AM EDT S/P liver transplant (CMS-HCC) Immunosuppression (CMS-HCC) Viral disease exposure HEPATITIS B VIRUS (HBV), REAL-TIME PCR, QUANT Routine 11/25/2024 8:42 AM EDT S/P liver transplant (CMS-HCC) Immunosuppression (CMS-HCC) Viral disease exposure MAGNESIUM Routine 11/25/2024 8:42 [...] Routine 10/31/2024 10:19 AM EDT US DUPLEX [id number] COMPLETE Routine 10/31/2024 10:19 AM EDT ECG [...] STAT 10/28/2024 4:23 PM EDT US DUPLEX TSH-[id number]-GLQGJUV COMPLETE STAT 10/28/2024 4:23 PM EDT TRANSFUSE [...] STAT 10/27/2024 9:51 AM EDT US DUPLEX CAY-[id number]-[id number] COMPLETE STAT 10/27/2024 9:51 AM EDT US [...] EDT Acute kidney injury superimposed on CKD ([facility]) IN RENAL ALTRNSPLJ IMPLTJ GRF W/DOCUMENTATION LIAISON NEPHRECTOMY 10/27/2024 2:32 AM EDT Acute kidney injury superimposed on CKD ([facility]) Special Needs 3rd crank [...] LIPID PANEL Routine 10/07/2024 6:37 PM EDT GORYG-2-IHFTFNVGETD (AAT) QUANTITATION & MUTATION Routine 10/07/2024 6:37 [...] Routine 10/07/2024 3:48 PM EDT US DUPLEX [id number]-[id number] COMPLETE Routine 10/07/2024 3:48 PM EDT CARISA [...] 10/06/2024 4:01 AM EDT UPPER RESPIRATORY VIRAL/BACTERIAL PANEL-EVENT PROMOTIONS COORDINATOR ONLY Routine 10/06/2024 3:12 AM EDT XR [...] STAT 09/03/2024 10:30 AM EDT US DUPLEX [id number]-[id number]-XZJVMFH COMPLETE STAT 09/03/2024 10:30 AM EDT URINALYSIS, [...] (CMS-HCC) from Last 3 Months Results * Hepatic Function Panel (11/27/2024 7:50 AM EDT) Only the most recent of44 resultswithin the time period is included. Bilirubin, Direct 0.4 Bilirubin, Indirect 0.1 Alkaline Phosphatase 149 U/L ALT 19 U/L AST 13 U/L Total Bilirubin 0.5 0.1 - 1.4 mg/dL Total Protein 6.4 6.4 - 8.2 g/dL Plasma Narrative Resulting Agency Comment [facility] Result [facility] Provider MD LAB BLOOD ORDERABLES Denisse l Result * Tacrolimus level (11/27/2024 7:50 AM EDT) Only the most recent of14 resultswithin the time period is included. Tacrolimus Lvl 9.9 6 - 15 ng/mL Whole Blood Result [facility] Provider MD LAB BLOOD ORDERABLES Denisse l Result * Protime-INR (11/27/2024 7:50 AM EDT) Only the most recent of34 resultswithin the time period is included. INR 0.93 0.9 - 1.1 Plasma Narrative Resulting Agency Comment [facility] Provider MD LAB BLOOD ORDERABLES Denisse l Result * (ABNORMAL) CBC and differential (11/27/2024 7:50 AM EDT) Only the most recent of6 resultswithin the time period is included. Hemoglobin 10.2(A) 13.5 - 17.5 g/dL Hematocrit [...] 6.6 10^3/mL Blood Narrative Resulting Agency Comment [facility] Historical Provider MD LAB BLOOD ORDERABLES Denisse l Result * (ABNORMAL) Renal Function Panel w/o EGFR (11/27/2024 7:50 AM EDT) Only the most recent of8 resultswithin the time period is included. Glucose 104 mg/dL BUN 42(A) 4 - [...] 5.0 g/dL Blood Narrative Resulting Agency Comment [facility] us Historical Provider MD LAB BLOOD ORDERABLES Denisse l Result * Phosphatidylethanol Confirmation, B (11/25/2024 8:42 AM EDT) Only the most recent of5 resultswithin the time period is included. PETH 16:0/18.1 (POPETH) 14 Cutoff: 10 ng/mL 11/28/2024 8:24 AM EDT [facility] Comment: Phosphatidylethanol (PEth) homologues result interpretation [...] Cutoff: 10 ng/mL 11/28/2024 8:24 AM EDT [facility] Comment: PEth 16:0/18:2 (PLPEth) Reference ranges are not well established PEth Interpretation Positive. 11/28 8:24 AM EDT [facility] Comment: ADDITIONAL INFORMATION This report is [...] by: [facility] [place] [address] [place] [id number] [employer] Driver: Kathy Ortiz Ph.D.; CLIA# [id number] Whole Blood 11/25/2024 8:42 AM EDT 11/28/2024 8:24 AM EDT Narrative [facility]ALTH [facility] - 11/28/2024 8:24 AM EDT One time lab order to be collected with next set of standing liver transplant labs. Please fax all results to [phone]. Call critical results to [phone]. Harvey Domínguez III, MD LAB BLOOD ORDERABLE S Final Result Performing Organization Address [facility]/ZIP Co de Phone Number [facility] [address] * Hepatitis B Virus (HBV), PCR, Quant (11/25/2024 8:42 AM EDT) Hep B Viral DNA IU/ML Not Detected IU/mL 11/28/2024 10:09 AM EDT [facility] Comment:Test methodology for HBV DNA quantification is an FDA-approved nucleic acid amplification assay. The lower limit of quantitation (LLOQ) is 10 IU/mL. The linear range of the assay is 10-1,000,000,000 IU/mL. The limit of detection (LoD) for plasma is 2.7 IU/mL. The reference range is Not Detected. log 10 HBV as IU/mL See Note log 10 IU/mL 11/28/2024 10:09 AM EDT [facility] Comment:HBV DNA not detected . Plasma 11/25/2024 8:42 AM EDT 11/25/2024 10:59 AM EDT Narrative [facility] - 11/28/2024 10:09 AM EDT One time lab order to be collected with next set of standing liver transplant labs. UNOS requirement. Please fax all results to [phone]. Call critical results to [phone]. Harvey Domínguez III, MD LAB BLOOD ORDERABLE S Final Result Performing Organization Address City/[facility]/ZIP Co de Phone Number [facility] [address] * HIV-1 RNA, Quantitative, PCR (11/25/2024 8:42 AM EDT) HIV 1 Copies Not Detected copies/mL 11/26/2024 10:57 AM EDT [facility] Comment:Test methodology for HIV-1 RNA quantification is an FDA-approved nucleic acid amplification assay. The Lower Limit of Quantitation (LLoQ) is 20 copies/mL. The linear range is 20- to 10,000,000 copies/mL. The Limit of Detection (LoD) is 13.2 copies/mL. The reference range is Not Detected. HIV [id number] See Note [id number] /mL 11/26/2024 10:57 AM EDT [facility] Comment:HIV-1 RNA not detect ed. Plasma 11/25/2024 8:42 AM EDT 11/25/2024 10:59 AM EDT [facility] - 11/26/2024 10:57 AM EDT One time lab order to be collected with next set of standing liver transplant labs. UNOS requirement. Please fax all results to [phone]. Call critical results to [phone]. us Harvey Domínguez III, MD LAB BLOOD ORDERABLE S Final Result [facility] [address] * Hepatitis C RNA, Quantitative PCR (11/25/2024 8:42 AM EDT) Pathologist [employer] Not Detected IU/mL 11/27/2024 11:35 AM EDT [facility] Comment:Test methodology for HCV RNA quantification is an FDA-approved nucleic acid amplification assay. The Lower Limit of Quantitation (LLOQ) is 15 IU/mL. The linear range of the assay is 15-100,000,000 IU/mL. The Limit of Detection (LoD) is 12.0 IU/mL for EDTA plasma. The reference range is Not Detected. IU log10 See Note log 10 IU/mL 11/27/2024 11:35 AM EDT [facility] Comment:HCV RNA not detected . Plasma 11/25/2024 8:42 AM EDT 11/25/2024 10:59 AM EDT [facility] - 11/27/2024 11:35 AM EDT One time lab order to be collected with next set of standing liver transplant labs. UNOS requirement. Please fax all results to [phone]. Call critical results to [phone]. us Harvey Domínguez III, MD LAB BLOOD ORDERABLE S Final Result [facility] [address] [place] [address], [facility] * Differential (11/25/2024 8:42 AM EDT) Only the most recent of7 resultswithin the time period is included. Neutrophils Relative 73.2 40.0 - 80.0 % 11/25/2024 10:25 AM EDT [facility] Lymphocytes Relative 19.2 15.0 - 45.0 % 11/25/2024 10:25 AM EDT [facility] Monocytes Relative 6.3 0.0 - 12.0 % 11/25/2024 10:25 AM EDT [facility] Eosinophils Relative 0.4 0.0 - 8.0 % 11/25/2024 10:25 AM EDT [facility] Basophils Relative 0.9 0.0 - 1.0 % 11/25/2024 10:25 AM EDT [facility] nRBC 0 0 - 0 /100 WBC 11/25/2024 10:25 AM EDT [facility] Neutrophils Absolute 5,929 1,520 - 8,640 /uL 11/25/2024 10:25 AM EDT [facility] Lymphocytes Absolute 1,555 570 - 4,860 /uL 11/25/2024 10:25 AM EDT [facility] Monocytes Absolute 510 0 - 1,296 /uL 11/25/2024 10:25 AM EDT [facility] Eosinophils Absolute 32 0 - 864 /uL 11/25/2024 10:25 AM EDT [facility] Basophils Absolute 73 0 - 108 /uL 11/25/2024 10:25 AM EDT [facility] Whole Blood 11/25/2024 8:42 AM EDT 11/25/2024 9:44 AM EDT Narrative [facility]ALTH [facility] - 11/25/2024 10:25 AM EDT Standing orders to be drawn: Every Sunday and before 9am and prior to patient taking morning medications. Liver Transplant Fax results to [phone] Call Critical results to [phone] us Harvey Domínguez III, MD LAB BLOOD ORDERABLE S Final Result Performing Organization Address City/State/[facility] Co de Phone Number [facility] [address] [place] [address], [facility] * (ABNORMAL) CBC (11/25/2024 8:42 AM EDT) Only the most recent of48 resultswithin the time period is included. WBC 8.1 3.8 - 10.8 10E3/uL 11/25/2024 10:25 AM EDT [facility] RBC 3.71(L) 4.20 - 5.80 10E6/uL 11/25/2024 10:25 AM EDT [facility] Hemoglobin 11.7(L) 13.2 - 17.1 g/dL 11/25/2024 10:25 AM EDT [facility] Hematocrit 33.8(L) 38.5 - 50.0 % 11/25/2024 10:25 AM EDT [facility] MCV 91.1 80.0 - 100.0 fL 11/25/2024 10:25 AM EDT [facility] MCH 31.5 27.0 - 33.0 pg 11/25/2024 10:25 AM EDT [facility] MCHC 34.6 32.0 - 36.0 g/dL 11/25/2024 10:25 AM EDT [facility] RDW 20.0(H) 11.0 - 15.0 % 11/25/2024 10:25 AM EDT [facility] Platelets 193 140 - 400 10E3/uL 11/25/2024 10:25 AM EDT [facility] Comment:Slide Reviewed for P LT Clumps. None Seen. MPV 6.9(L) 7.5 - 11.5 fL 11/25/2024 10:25 AM EDT [facility] Whole Blood 11/25/2024 8:42 AM EDT 11/25/2024 9:44 AM EDT us Gerri Peterson MD LAB BLOOD ORDERABLES Final Resu lt [facility] [address] [facility] * (ABNORMAL) Magnesium (11/25/2024 8:42 AM EDT) Only the most recent of42 resultswithin the time period is included. Magnesium 1.4(L) 1.5 - 2.5 mg/dL 11/25/2024 10:20 AM EDT [facility] Plasma 11/25/2024 8:42 AM EDT 11/25/2024 9:47 AM EDT us Caron Santos [facility] BLOOD ORDERABLES Denisse l Result Performing Organization Address [facility] Co de Phone Number [facility] [address] [facility] * (ABNORMAL) Comprehensive metabolic panel (11/25/2024 8:42 AM EDT) Only the most recent of6 resultswithin the time period is included. Sodium 141 133 - 146 mmol/L 11/25/2024 10:20 AM EDT [facility] Potassium 4.3 3.5 - 5.3 mmol/L 11/25/2024 10:20 AM EDT [facility] Chloride 106 98 - 110 mmol/L 11/25/2024 10:20 AM EDT [facility] CO2 23 21 - 33 mmol/L 11/25/2024 10:20 AM EDT [facility] Anion Gap 12 3 - 16 mmol/L 11/25/2024 10:20 AM EDT [facility] BUN 43(H) 7 - 25 mg/dL 11/25/2024 10:20 AM EDT [facility] Creatinine 1.59(H) 0.60 - 1.30 mg/dL 11/25/2024 10:20 AM EDT [facility] Glucose 93 70 - 100 mg/dL 11/25/2024 10:20 AM EDT [facility] Calcium 10.0 8.6 - 10.3 mg/dL 11/25/2024 10:20 AM EDT [facility] Total Bilirubin 0.7 0.0 - 1.5 mg/dL 11/25/2024 10:20 AM EDT [facility] AST 9(L) 13 - 39 U/L 11/25/2024 10:20 AM EDT [facility] ALT 22 7 - 52 U/L 11/25/2024 10:20 AM EDT [facility] Alkaline Phosphatase 198(H) 36 - 125 U/L 11/25/2024 10:20 AM EDT [facility] Total Protein 7.0 6.4 - 8.9 g/dL 11/25/2024 10:20 AM EDT [facility] Albumin 4.5 3.5 - 5.7 g/dL 11/25/2024 10:20 AM EDT [facility] Osmolality, Calculated 303 278 - 305 mOsm/kg 11/25/2024 10:20 AM EDT [facility] EGFR 56 11/25/2024 10:20 AM EDT [facility] Comment:As of 2021, the estimated GFR [...] AM EDT 11/25/2024 9:47 AM EDT us Gerri Peterson MD LAB BLOOD ORDERABLES Final Resu lt [facility] [address] [facility] [place] [address], [facility] * (ABNORMAL) Post Kidney Transplant Urine Culture [...] GENERAL OR DERABLES Final Result [facility] [address] * (ABNORMAL) Renal Function Panel w/EGFR (11/11/2024 9:13 AM EDT) Only the most recent of40 resultswithin the time period is included. Sodium 141 133 - 146 mmol/L 11/11/2024 10:51 AM EDT [facility] Potassium 4.6 3.5 - 5.3 mmol/L 11/11/2024 10:51 AM EDT [facility] Chloride 108 98 - 110 mmol/L 11/11/2024 10:51 AM EDT [facility] CO2 24 21 - 33 mmol/L 11/11/2024 10:51 AM EDT [facility] Anion Gap 9 3 - 16 mmol/L 11/11/2024 10:51 AM EDT [facility] BUN 27(H) 7 - 25 mg/dL 11/11/2024 10:51 AM EDT [facility] Creatinine 1.14 0.60 - 1.30 mg/dL 11/11/2024 10:51 AM EDT [facility] Glucose 97 70 - 100 mg/dL 11/11/2024 10:51 AM EDT [facility] Calcium 8.6 8.6 - 10.3 mg/dL 11/11/2024 10:51 AM EDT [facility] Phosphorus 4.4 2.1 - 4.7 mg/dL 11/11/2024 10:51 AM EDT [facility] Albumin 3.8 3.5 - 5.7 g/dL 11/11/2024 10:51 AM EDT [facility] Osmolality, Calculated 297 278 - 305 mOsm/kg 11/11/2024 10:51 AM EDT [facility] EGFR 83 11/11/2024 10:51 AM EDT [facility] Comment:As of 2021, the estimated GFR [...] AM EDT 11/11/2024 10:19 AM EDT Narrative [facility] - 11/11/2024 10:51 AM EDT Standing orders to be drawn: Every Sunday and before 9am and prior to patient taking morning medications. Liver Transplant Fax results to [phone] Call Critical results to [phone] DO NOT REPLACE RENAL PANEL or HEPATIC FUNCTION PANEL w/ CMP, BMP or HEPATIC PROFILE us Harvey Domínguez III, MD LAB BLOOD ORDERABLE S Final Result [facility] [address] [place], [place] [address] * Protein / creatinine ratio, urine (11/11/2024 9:13 AM EDT) Only the most recent of2 resultswithin the time period is included. Creatinine, Urine 71.40 mg/dL 11/11/2024 10:38 AM EDT [facility] Comment:Reference range not established for this test. Total Protein, Ur 28 mg/dL 11/11/2024 10:38 AM EDT [facility] Comment:Reference range not established for this test. Prot/Creat Ratio, Ur 0.39 ratio 11/11/2024 10:38 AM EDT [facility] [facility] Urine 11/11/2024 9:13 AM EDT 11/11/2024 10:12 AM EDT Carno Santos PHOTOGRAPHY TEACHER URINE ORDERABLES Final Re sult [facility] [address] * (ABNORMAL) Urinalysis w/Rfl to Microscopic (11/11/2024 9:13 AM EDT) Only the most recent of5 resultswithin the time period is included. Color, UA Straw Yellow,Straw 11/11/2024 10:36 AM EDT [facility] Clarity, UA Clear Clear 11/11/2024 10:36 AM EDT [facility] Specific [place], UA 1.015 1.005 - 1.035 11/11/2024 10:36 AM EDT [facility] pH, UA 6.0 5.0 - 8.0 11/11/2024 10:36 AM EDT [facility] Protein, UA Negative Negative mg/dL 11/11/2024 10:36 AM EDT [facility] Glucose, UA Negative Negative mg/dL 11/11/2024 10:36 AM EDT [facility] Ketones, UA Negative Negative mg/dL 11/11/2024 10:36 AM EDT [facility] Bilirubin, UA Negative Negative 11/11/2024 10:36 AM EDT [facility] Blood, UA Small(A) Negative 11/11/2024 10:36 AM EDT [facility] Nitrite, UA Negative Negative 11/11/2024 10:36 AM EDT [facility] Urobilinogen, UA <2.0 0.2 - 1.9 mg/dL 11/11/2024 10:36 AM EDT [facility] Leukocyte Esterase, UA Negative Negative 11/11/2024 10:36 AM EDT [facility] RBC, UA 13(H) 0 - 3 /HPF 11/11/2024 10:36 AM EDT [facility] WBC, UA 4 0 - 5 /HPF 11/11/2024 10:36 AM EDT [facility] Urine 11/11/2024 9:13 AM EDT 11/11/2024 10:10 AM EDT us Caron Santos PHOTOGRAPHY TEACHER URINE ORDERABLES Final Re sult Performing Organization Address City/[facility]/ZIP Co de Phone Number [facility] [address] [facility] * EKG - scan (11/03/2024 9:07 [...] mg/dL 11/02/2024 5:45 PM EDT [facility] Blood 11/02/2024 5:44 PM EDT 11/02/2024 5:45 PM EDT us Harvey Domínguez III, MD POINT OF CARE TEST ORDERABLES Final Result [facility] [address] * X-ray Portable Abdomen AP view [...] Adrenal gland: No focal nodule seen. Kidneys: [place] kidneys noted with nonobstructing calcifications on the right. Findings of postsurgical changes in the left [place] kidney. Mild right hydronephrosis without an obstructive [...] Adrenal gland: No focal nodule seen. Kidneys: [place] kidneys noted with nonobstructing calcifications on theright. Findings of postsurgical changes in the left [place] kidney. Mildright hydronephrosis without an obstructive course [...] QT: 400 ms QTc: 456 ms P Watson: 49 degrees R Watson: 3 degrees T Watson: 14 degrees Diagnosis Line: NORMAL SINUS RHYTHM ^ NORMAL ECG ^ ^ Confirmed by MD REID JAMES ([id number]) on 11/02/2024 6:56:52 AM us Priti Alex PHOTOGRAPHY TEACHER ECG ORDERABLES Final Result MUSE * US Duplex [id number]-[id number] Comp (10/31/2024 10:19 AM EDT) Only the [...] EXAM: US ABDOMEN LIMITED EXAM: US DUPLEX [id number] COMPLETE INDICATION: Post-op liver transplant COMPARISON: None [...] visualized secondary to poor acoustic windows. The [place] right kidney measures 11.6 cm in length. [...] EXAM: US ABDOMEN LIMITED EXAM: US DUPLEX [id number] COMPLETE INDICATION: Post-op liver transplant COMPARISON: None [...] well visualized secondary to poor acousticwindows. The [place] right kidney measures 11.6 cm in length. [...] 10:35 AM EDT Beata Horner [facility] US ORDERABLES Final R esult [...] EXAM: US ABDOMEN LIMITED EXAM: US DUPLEX [id number] COMPLETE INDICATION: Post-op liver transplant COMPARISON: None [...] visualized secondary to poor acoustic windows. The [place] right kidney measures 11.6 cm in length. [...] EXAM: US ABDOMEN LIMITED EXAM: US DUPLEX [id number] COMPLETE INDICATION: Post-op liver transplant COMPARISON: None [...] well visualized secondary to poor acousticwindows. The [place] right kidney measures 11.6 cm in length. [...] 10:35 AM EDT Beata Horner [facility] US ORDERABLES Final R esult [...] at 10/31/2024 10:29 AM EDT Beata Horner [facility] US ORDERABLES Final R esult * Prepare RBC, leukoreduced, 1 Units (10/29/2024 6:16 AM EDT) Only the most recent of7 resultswithin the time period is included. Product Code U0761L53 [facility] Unit Number [id number] [facility] Dispense Status Presumed Transfused_PT [facility] Blood Expiration Date [id number] [facility] Coding System [id number] [facility] Blood Bank Product us Shay Guzmán MD BLOOD BANK PRODUCT O RDERABLES Final Result [facility] * (ABNORMAL) TEG-Bypass/ECMO/Liver HN (Factor function, Platelet/Fibrin Clot Strength w/Clot Breakdown, Heparinase In All Channels) (10/29/2024 5:07 AM EDT) Only the most recent of13 resultswithin the time period is included. [facility] Citrated Kaolin Reaction Time (TEGECMOLIVER) 8.9 4.6 - 9.1 minutes 10/29/2024 7:04 AM EDT [facility] Citrated Kaolin W/Heparinase Reaction Time (TEGECMOLIVER) 7.4 4.3 - 8.3 minutes 10/29/2024 7:04 AM EDT [facility] Citrated Kaolin Maximum Amplitude (TEGECMOLIVER) 52.9 52.0 - 69.0 mm 10/29/2024 7:04 AM EDT [facility] Citrated Functional Fibrinogen W/Heparinase Maximum Amplitude(TEGEC MOLIVER) 20.7 15.0 - 34.0 mm 10/29/2024 7:04 AM EDT [facility] Citrated Rapid Teg W/Heparinase Maximum Amplitude (TEGECMOLIVER) 49.7(L) 53.0 - 69.0 mm 10/29/2024 7:04 AM EDT [facility] Citrated Kaolin w/Heparinase Percent Lysis (TEGECMOLIVER) 0.0 0.0 - 3.2 % 10/29/2024 7:04 AM EDT [facility] Whole Blood (Citrate) 10/29/2024 5:07 AM EDT 10/29/2024 5:10 AM EDT Kemar Sahni MD LAB BLOOD ORDERABLES Final Result [facility] [address] * Transfuse RBC Transfusion Rate: Per dept routine (10/28/2024 5:23 PM EDT) Only the most recent of17 resultswithin the time period is included. Shay Guzmán MD NURSING TREATMENT OR DERABLES - BLOOD ADMIN Final Result Performing Organization Address City/[facility]/ZIP Co de Phone Number EXTERNAL * (ABNORMAL) Lactic Acid, STAT (10/28/2024 11:09 AM EDT) Only the most recent of12 resultswithin the time period is included. Lactate 0.3(L) 0.5 - 2.2 mmol/L 10/28/2024 11:37 AM EDT [facility] Plasma 10/28/2024 11:0 9 AM EDT 10/28/2024 11:15 AM EDT Carlos Marks MD LAB BLOOD ORDERABLES Final Result Performing Organization Address [facility] Co de Phone Number [facility] [address] * Prepare Platelets, leukoreduced (10/28/2024 6:15 AM EDT) Only the most recent of5 resultswithin the time period is included. Product Code D7204F82 [facility] Unit Number [id number] [facility] Dispense Status Presumed Transfused_PT [facility] Blood Expiration Date [facility] Coding System [id number] [facility] Product Code J2873I86 [facility] Unit Number [id number] [facility] Dispense Status Presumed Transfused_PT [facility] Blood Expiration Date [facility] Coding System [id number] [facility] Attending Provider Unknown BLOOD BANK PRODUCT OR DERABLES Final Result Performing Organization Address City/[facility]/ZIP Co de Phone Number [facility] * Prepare Fresh Frozen Plasma (10/28/2024 6:15 AM EDT) Only the most recent of5 resultswithin the time period is included. Product Code W6910L07 [facility] Unit Number [id number] [facility] Dispense Status Released from Crossmatch_RE [facility]LL Blood Expiration Date [facility] Coding System [id number] [facility] Product Code M0236W20 [facility] Unit Number [id number] [facility] Dispense Status Presumed Transfused_PT [facility] Blood Expiration Date [facility] Coding System [id number] [facility] Product Code I0901F10 [facility] Unit Number [id number] [facility] Dispense Status Released from Crossmatch_RE HCLL Blood Expiration Date HCLL Coding System YPRM730 [facility] Product Code Z9909B39 [facility] Unit Number [id number] [facility] Dispense Status Presumed Transfused_PT [facility] Blood Expiration Date HCLL Coding System [id number] [facility] Product Code H9865Q72 [facility] Unit Number [id number] [facility] Dispense Status Released from Crossmatch_RE HCLL Blood Expiration Date [id number] [facility] Coding System [id number] HC[facility] Attending Provider Unknown BLOOD BANK PRODUCT OR DERABLES Final Result [facility] * Prepare Cryoprecipitate, 1 Units (10/28/2024 6:15 AM EDT) Only the most recent of4 resultswithin the time period is included. Product Code G8933C28 [facility] Unit Number [id number] [facility] Dispense Status Presumed Transfused_PT [facility] Blood Expiration Date HCLL Coding System [id number] [facility] Product Code W6205N54 [facility] Unit Number [id number] [facility] Dispense Status Presumed Transfused_PT HCLL Blood Expiration Date HCLL Coding System [id number] [facility] Blood Bank Product John Pina MD BLOOD BANK PRODUCT ORDERABLES F inal Result [facility] * (ABNORMAL) Blood Gas, Arterial, STAT (10/27/2024 2:40 PM EDT) Only the most recent of6 resultswithin the time period is included. O2 Sat, Arterial 98 10/27/2024 2:46 PM EDT [facility] FIO2 RA 10/27/2024 2:46 PM EDT [facility] pH, Arterial 7.37 7.35 - 7.45 10/27/2024 2:46 PM EDT [facility] pCO2, Arterial 35 35 - 45 mm Hg 10/27/2024 2:46 PM EDT [facility] pO2, Arterial 92 80 - 100 mm Hg 10/27/2024 2:46 PM EDT [facility] HCO3, Arterial 21(L) 22 - 26 mmol/L 10/27/2024 2:46 PM EDT [facility] CO2 Content,Arteri al 21(L) 23 - 27 mmol/L 10/27/2024 2:46 PM EDT [facility] Base Excess, Arterial -4.6(L) -2.0 - 3.0 mmol/L 10/27/2024 2:46 PM EDT [facility] %HBO2, Arterial 95.4 95.0 - 98.0 % 10/27/2024 2:46 PM EDT [facility] Carboxyhemoglo bin, Arterial 1.6 % 10/27/2024 2:46 PM EDT [facility] Comment: CARBOXYHEMOGLOBIN (CO) REFERENCE RANGES: Non-Smokers: <2 % Smokers: <8 % TOXIC: >20 % Methemoglobin, Arterial 1.0 0.0 - 1.5 % 10/27/2024 2:46 PM EDT [facility] Reduced hemoglobin, Arterial 2.1 0.0 - 5.0 % 10/27/2024 2:46 PM EDT [facility] Blood, Arterial 10/27/2024 2 :40 PM EDT 10/27/2024 2:44 PM EDT Narrative [facility] - 10/27/2024 2:46 PM EDT Post extubation John Coulter MD LAB BLOOD ORDERABLES Final R esult [facility] [address] [place] [address], [facility] * CARISA Rhythm Strip - Scan (10/27/2024 [...] Positive( A) Negative 10/27/2024 11:30 AM EDT [facility] Comment:Presence of detectab le VCA IgG antibodies. 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 EBV IGG NUM 314.00(H) 0.00 - 17.99 U/mL 10/27/2024 11:30 AM EDT [facility] Serum 10/27/2024 8:00 AM EDT 10/27/2024 8:20 AM EDT Kemar Sahni MD LAB BLOOD ORDERABLES Final Result [facility] [address] [place] [address], [facility] * Hemoglobin A1c (10/27/2024 8:00 AM EDT) Only the most recent of2 resultswithin the time period is included. Hemoglobin A1C 5.0 4.0 - 5.6 % 10/27/2024 11:12 AM EDT [facility] Comment: Hemoglobin A1c Interpretation Guidelines: Normal: [...] LAB BLOOD ORDERABLES Final Result [facility] [address] [facility] [place] [address], [facility] * X-ray Abdomen AP view (10/27/2024 7:47 [...] 100 10/27/2024 6:17 AM EDT [facility] pH (ABGP) 7.30(L) 7.35 - 7.45 10/27/2024 6:17 AM EDT [facility] PCO2 (ABGP) 41 35 - 45 mm Hg 10/27/2024 6:17 AM EDT [facility] PO2 (ABGP) 192(H) 80 - 100 mm Hg 10/27/2024 6:17 AM EDT [facility] HCO3 (ABGP) 21(L) 22 - 26 mmol/L 10/27/2024 6:17 AM EDT [facility] CO2 Content (ABGP) 22(L) 23 - 27 mmol/L 10/27/2024 6:17 AM [facility] Base Excess (ABGP) -5.7(L) -2.0 - 3.0 mmol/L 10/27/2024 6:17 AM EDT [facility] Sodium (ABGP) 138 136 - 146 mEq/L 10/27/2024 6:17 AM [facility] Potassium (ABGP) 3.3(L) 3.5 - 5.0 mEq/L 10/27/2024 6:17 AM [facility] Comment:In the event of in-v itro hemolysis, potassium results may be falsely elevated. Always interpret lab results in conjunction with clinical findings. If hemolysis is suspected, a serum sample may be collected for repeat assessment of potassium. Calcium, Free (ABGP) 5.28 4.50 - 5.30 mg/dL 10/27/2024 6:17 AM [facility] Glucose (ABGP) 112(H) 70 - 100 mg/dL 10/27/2024 6:17 AM [facility] Comment:There is interferenc e with whole blood glucose results on this method when Hematocrit is <25% or >60%. HCT (ABGP) 20.0(L) 40.0 - 52.0 % 10/27/2024 6:17 AM [facility] HGB (ABGP) 6.5(L) 14.0 - 18.0 g/dL 10/27/2024 6:17 AM [facility] %HBO2 (ABGP) 96.8 95.0 - 98.0 % 10/27/2024 6:17 AM [facility] Carboxyhgb (ABGP) 2.1 % 025 6:17 AM [facility] Comment: CARBOXYHEMOGLOBIN (CO) REFERENCE RANGES: Non-Smokers: <2 % Smokers: <8 % TOXIC: >20 % Methemoglobin (ABGP) 1.0 0.0 - 1.5 % 10/27/2024 6:[facility] Reduced Hemoglobin (ABGP) 0.2 0.0 - 5.0 % 10/27/2024 6:17 AM [facility] Lactic Acid (ABGP) 0.4(L) 0.5 - 1.6 mmol/L 10/27/2024 6:17 AM EDT [facility] Blood, Arterial 10/27/2024 6 :09 AM EDT 10/27/2024 6:14 AM EDT Ben Blake MD LAB BLOOD ORDERABLES Final Re sult Performing Organization Address City/[facility]/ZIP Co de Phone Number [facility] [address] [place], [place] [address] [place] [address] * Transfuse Fresh Frozen Plasma (10/27/2024 5:49 [...] Organization Address City/[facility] Co de Phone Number [facility] [address] [facility] [address] [address] [facility] [place] [address] * Surgical Pathology Exam (10/27/2024 2:38 AM EDT) Only the most recent of2 resultswithin the time period is included. Tissue LEFT KIDNEY STRUCTURE / Unknown 10/27/2024 2:38 AM EDT Narrative [facility] - 10/27/2024 12:00 AM EDT CASE: [id number] PATIENT: BLAIR ANDERSON Clinical History: Transplant kidney with bile duct reconstruction Pre-Operative Diagnosis: Acute kidney injury superimposed on CKD Post-Operative Diagnosis: None Given Specimen(s) Submitted: A. baseline renal biopsy ; B. right lobe liver biopsy; C. left lobe liver biopsy CPT Code(s): 93150 X 1; 57104 X 2; 52782 X 4 Additional Information: FINAL DIAGNOSIS: A. [...] Pathologist signing this report is located at [facility], [address] [place] [address], [id number], , CLIA ID: [id number] ADDENDUM: A. Kidney, allograft, baseline, wedge biopsy: [...] Pathologist signing this report is located at [facility], [address] [place] [address], [id number], , CLIA ID: [id number] Kemar Sahni MD PATHOLOGY/CYTOLOGY ORDERABL ES Edited Result - Final Performing Organization Address City/[facility]/ZIP Co de Phone Number [facility] * Routine Culture plus Stain (10/27/2024 2:15 AM EDT) Only the most recent of2 resultswithin the time period is included. Gram Stain Result No Polymorphonuclear Leukocytes Seen [facility] Gram Stain Result No Organisms Seen; [facility] Culture Result No Growth After 3 Days [facility] Fluid SPECIMEN FROM KIDNEY / Unknown 10/27/2024 2:15 AM EDT 10/27/2024 4:24 AM EDT Narrative [facility] - 10/30/2024 9:26 AM EDT 1) perfusate Harvey Domínguez III, MD MICROBIOLOGY - GENE RAL ORDERABLES Final Result Performing Organization Address [facility]/ZIP Co de Phone Number [facility] [address] [place] [address] * Fungus culture (10/27/2024 2:15 AM EDT) Culture Result No Fungus Isolated At 4 Weeks [facility] Fluid SPECIMEN FROM KIDNEY / Unknown 10/27/2024 2:15 AM EDT 10/27/2024 4:24 AM EDT Narrative [facility] - 11/24/2024 7:52 AM EDT 1) perfusate Harvey Domínguez III, MD MICROBIOLOGY - GENE RAL ORDERABLES Final Result Performing Organization Address City/[facility]/ZIP Co de Phone Number [facility] [address] [facility] * Anaerobic culture (10/27/2024 2:15 AM EDT) Only the most recent of2 resultswithin the time period is included. Culture Result No Anaerobes Isolated in 5 Days [facility] Fluid SPECIMEN FROM KIDNEY / Unknown 10/27/2024 2:15 AM EDT 10/27/2024 4:24 AM EDT Narrative [facility] - 10/31/2024 11:43 AM EDT 1) perfusate Harvey Domínguez III, MD MICROBIOLOGY - GENE [facility] ORDERABLES Final Result Performing Organization Address [facility] de Phone Number [facility] [address] [facility] * (ABNORMAL) TEG-Standard Global Hemostasis (Rapid TEG with Heparin Effect, Contains a Baseline TEG) (10/27/2024 1:51 AM EDT) Only the most recent of2 resultswithin the time period is included. Citrated Kaolin Reaction Time (TEGHEPARINASE) 10.6(H) 4.6 - 9.1 minutes 10/27/2024 2:44 AM EDT [facility] Citrated Rapid Teg Maximum Amplitude (TEGHEPARINASE) 42.3(L) 52.0 - 70.0 mm 10/27/2024 2:44 AM EDT [facility] Citrated Functional Fibrinogen Maximum Amplitude (TEGHEPARINASE) 15.0 15.0 - 32.0 mm 10/27/2024 2:44 AM EDT [facility] Citrated Kaolin W/Heparinase Reaction Time (TEGHEPARINASE) 10.5(H) 4.3 - 8.3 minutes 10/27/2024 2:44 AM EDT [facility] Citrated Kaolin K-Time (TEGHEPARINASE) 2.9(A) 0.8 - 2.1 minutes 10/27/2024 2:44 AM EDT [facility] Citrated Kaolin Angle (TEGHEPARINASE) 60.4(A) 63.0 - 78.0 degrees 10/27/2024 2:44 AM EDT [facility] Citrated Kaolin Maximum Amplitude (TEGHEPARINASE) 42.9(L) 52.0 - 69.0 mm 10/27/2024 2:44 AM EDT [facility] Citrated Functional Fibrinogen- Fibrinogen Level (TEGHEPARINASE) 273.7(L) 278.0 - 581.0 mg/dL 10/27/2024 2:44 AM EDT [facility] Whole Blood (Citrate) 10/27/2024 1:51 AM EDT 10/27/2024 2:03 AM EDT us John Pina MD LAB BLOOD ORDERABLES Final Resu lt [facility] [address] [place] [address], [facility] * Calcium Free, Serum (10/27/2024 12:13 AM EDT) Only the most recent of3 resultswithin the time period is included. Free Calcium, Ser 5.20 4.40 - 5.40 mg/dL 10/27/2024 12:37 AM EDT [facility] Comment:Free calcium levels vary inversely with pH by approximately 5% for each 0.1 unit of pH change. Assay results have been normalized to pH = 7.40. Serum 10/27/2024 12:1 3 AM EDT 10/27/2024 12:29 AM EDT Narrative [facility] - 10/27/2024 12:37 AM EDT This test has been developed and its performance characteristics determined by [facility] which is certified under [...] ORDERABLES Final Resu lt Performing Organization Address [facility] de Phone Number [facility] [address] * Repeat Crossmatch (Recipient Sample) (10/26/2024 4:42 PM EDT) Repeat Cx - Recipient The request and specimen(s) for this test have been received and transported to the [facility] [place] at [address] [place] [address]. The [facility] [place] will report results directly to the client. 10/26/2024 4:49 PM EDT [facility] Whole Blood 10/26/2024 4:42 PM EDT 10/26/2024 4:49 PM EDT Narrative [facility] - 10/26/2024 4:49 PM EDT To be sent to [facility] for Donor UNOS#[id number] cross match with Blair [place] Sveta Mojica MD LAB BLOOD ORDERABLES Final Resu lt Performing Organization Address [facility] Co de Phone Number [facility] [address] [place] [address] * (ABNORMAL) Fibrinogen (10/26/2024 6:10 AM EDT) Only the most recent of2 resultswithin the time period is included. Fibrinogen 160(L) 218 - 406 mg/dL 10/26/2024 6:41 AM EDT [facility] Plasma 10/26/2024 6:10 AM EDT 10/26/2024 6:26 AM EDT Sveta Mojica MD LAB BLOOD ORDERABLES Final Resu lt [facility] [address] [facility] * (ABNORMAL) POC INR (10/26/2024 5:16 AM EDT) Only the most recent of6 resultswithin the time period is included. Prothrombin Time INR, POC 2.4(H) 0.8 - 1.4 10/27/2024 6:51 AM EDT [facility] Comment: Test results may vary using [...] CARE TEST ORDERABLES Final Result [facility] [address] [facility] * POC Lactate (10/26/2024 5:14 AM EDT) Only the most recent of6 resultswithin the time period is included. POC Lactate 1.76 0.50 - 2.20 mmol/L 10/26/2024 5:31 AM EDT [facility] Blood, Arterial 10/26/2024 5 :14 AM EDT 10/26/2024 5:31 AM EDT Harvey Domínguez III, MD POINT OF CARE TEST ORDERABLES Final Result [facility] [address] [facility] * POC TCO2 (10/26/2024 5:14 AM EDT) Only the most recent of6 resultswithin the time period is included. POC TCO2, Arterial 23 23 - 27 mmol/L 10/26/2024 5:31 AM EDT [facility] Blood, Arterial 10/26/2024 5 :14 AM EDT 10/26/2024 5:31 AM EDT us Harvey Domínguez III, MD POINT OF CARE TEST ORDERABLES Final Result Performing Organization Address City/[facility] Co de Phone Number [facility] [address] [facility] * POC Sodium (10/26/2024 5:14 AM EDT) Only the most recent of6 resultswithin the time period is included. POC Sodium 138 136 - 146 mmol/L 10/26/2024 5:31 AM EDT [facility] Blood, Arterial 10/26/2024 5 :14 AM EDT 10/26/2024 5:31 AM EDT us Harvey Domínguez III, MD POINT OF CARE TEST ORDERABLES Final Result Performing Organization Address [facility] de Phone Number [facility] [address]. [address] * (ABNORMAL) POC Potassium (10/26/2024 5:14 AM EDT) Only the most recent of6 resultswithin the time period is included. POC Potassium 2.8(LL) 3.5 - 5.3 mmol/L 10/26/2024 5:31 AM EDT [facility] Blood, Arterial 10/26/2024 5 :14 AM EDT 10/26/2024 5:31 AM EDT us Harvey Domínguez III, MD POINT OF CARE TEST ORDERABLES Final Result Performing Organization Address City/[facility] Co de Phone Number [facility] [address] * (ABNORMAL) POC PO2 (10/26/2024 5:14 AM EDT) Only the most recent of6 resultswithin the time period is included. POC pO2, Arterial 133(H) 80 - 100 mm Hg 10/26/2024 5:31 AM EDT [facility] Blood, Arterial 10/26/2024 5 :14 AM EDT 10/26/2024 5:31 AM EDT us Harvey Domínguez III, MD POINT OF CARE TEST ORDERABLES Final Result Performing Organization Address City/[facility]/ZIP Co de Phone Number [place] [address] [address] [facility]. [address] * POC PCO2 (10/26/2024 5:14 AM EDT) Only the most recent of6 resultswithin the time period is included. POC pCO2, Arterial 45 35 - 45 mm Hg 10/26/2024 5:31 AM EDT [facility] Blood, Arterial 10/26/2024 5 :14 AM EDT 10/26/2024 5:31 AM EDT us Harvey Domínguez III, MD POINT OF CARE TEST ORDERABLES Final Result Performing Organization Address City/[facility]/ZIP Co de Phone Number [facility] [address] * (ABNORMAL) POC O2 SAT (10/26/2024 5:14 AM EDT) Only the most recent of6 resultswithin the time period is included. POC O2 Saturation, Arterial 99(H) 95 - 98 % 10/26/2024 5:31 AM EDT [facility] Blood, Arterial 10/26/2024 5 :14 AM EDT 10/26/2024 5:31 AM EDT us Harvey Domínguez III, MD POINT OF CARE TEST ORDERABLES Final Result Performing Organization Address [facility] Co de Phone Number [facility] [address] [facility] * POC HCO3 (10/26/2024 5:14 AM EDT) Only the most recent of6 resultswithin the time period is included. POC HCO3, Arterial 22 22 - 26 mmol/L 10/26/2024 5:31 AM EDT [facility] Blood, Arterial 10/26/2024 5 :14 AM EDT 10/26/2024 5:31 AM EDT us Harvey Domínguez III, MD POINT OF CARE TEST ORDERABLES Final Result Performing Organization Address [facility] Co de Phone Number [facility] [address] [facility] * POC Chloride (10/26/2024 5:14 AM EDT) Only the most recent of6 resultswithin the time period is included. POC Chloride 104 98 - 110 mmol/L 10/26/2024 5:31 AM EDT [facility] Blood, Arterial 10/26/2024 5 :14 AM EDT 10/26/2024 5:31 AM EDT us Harvey Domínguez III, MD POINT OF CARE TEST ORDERABLES Final Result Performing Organization Address City/[facility] Co de Phone Number [facility] [address] [facility] * (ABNORMAL) POC Base Excess (10/26/2024 5:14 AM EDT) Only the most recent of6 resultswithin the time period is included. POC Base Excess, Arterial -5(L) -2 - 3 mmol/L 10/26/2024 5:31 AM EDT [facility] Blood, Arterial 10/26/2024 5 :14 AM EDT 10/26/2024 5:31 AM EDT us Harvey Domínguez III, MD POINT OF CARE TEST ORDERABLES Final Result Performing Organization Address City/[facility] Co de Phone Number [facility] [address] * POC Anion Gap (10/26/2024 5:14 AM EDT) Only the most recent of6 resultswithin the time period is included. POC Anion Gap, Arterial 12 3 - 16 mmol/L 10/26/2024 5:31 AM EDT [facility] Blood, Arterial 10/26/2024 5 :14 AM EDT 10/26/2024 5:31 AM EDT us Harvey Domínguez III, MD POINT OF CARE TEST ORDERABLES Final Result Performing Organization Address [facility] Co de Phone Number [facility] [address] [facility]. [address] * POC Sample Type (10/26/2024 5:14 AM EDT) Only the most recent of6 resultswithin the time period is included. POC Sample Type Arterial 10/26/2024 5:31 AM EDT [facility] Blood, Arterial 10/26/2024 5 :14 AM EDT 10/26/2024 5:31 AM EDT us Harvey Domínguez III, MD POINT OF CARE TEST ORDERABLES Final Result Performing Organization Address City/[facility] Co de Phone Number [facility] [address] * (ABNORMAL) POC pH (10/26/2024 5:14 AM EDT) Only the most recent of6 resultswithin the time period is included. POC pH, Arterial 7.29(L) 7.35 - 7.45 10/26/2024 5:31 AM EDT [facility] Blood, Arterial 10/26/2024 5 :14 AM EDT 10/26/2024 5:31 AM EDT us Harvey Domínguez III, MD POINT OF CARE TEST ORDERABLES Final Result Performing Organization Address [facility] de Phone Number [facility] [address] [place] [address]. [address] * (ABNORMAL) POC hematocrit (10/26/2024 5:14 AM EDT) Only the most recent of6 resultswithin the time period is included. POC Hematocrit 28.0(L) 40 - 52 % 10/26/2024 5:31 AM EDT [facility] Blood, Arterial 10/26/2024 5 :14 AM EDT 10/26/2024 5:31 AM EDT us Harvey Domínguez III, MD POINT OF CARE TEST ORDERABLES Final Result Performing Organization Address [facility] de Phone Number [facility] [address] [place] [address]. [address] * (ABNORMAL) POC Ionized Calcium (10/26/2024 5:14 AM EDT) Only the most recent of6 resultswithin the time period is included. POC Ionized Calcium 5.50(H) 4.50 - 5.30 mg/dL 10/26/2024 5:31 AM EDT [facility] Blood, Arterial 10/26/2024 5 :14 AM EDT 10/26/2024 5:31 AM EDT us Harvey Domínguez III, MD POINT OF CARE TEST ORDERABLES Final Result Performing Organization Address [facility] de Phone Number [facility] [address] [place] [address]. [address] * (ABNORMAL) POC Glucose (10/26/2024 5:14 AM EDT) Only the most recent of6 resultswithin the time period is included. POC Glucose, Arterial 183(H) 70 - 100 mg/dL 10/26/2024 5:31 AM EDT [facility] Blood, Arterial 10/26/2024 5 :14 AM EDT 10/26/2024 5:31 AM EDT Harvey Domínguez III, MD POINT OF CARE TEST ORDERABLES Final Result Performing Organization Address City/[facility] Co de Phone Number [facility] [address] * (ABNORMAL) POC Hemoglobin (10/26/2024 5:14 AM EDT) Only the most recent of6 resultswithin the time period is included. [facility] POC Hemoglobin 9.5(L) 14.0 - 18.0 g/dL 10/26/2024 5:31 AM EDT [facility] Blood, Arterial 10/26/2024 5 :14 AM EDT 10/26/2024 5:31 AM EDT Harvey Domínguez III, MD POINT OF CARE TEST ORDERABLES Final Result Performing Organization Address City/[facility] Co de Phone Number [facility] [address] * (ABNORMAL) TEG-Global With Lysis (Baseline TEG with LY30, Will NOT Show Heparin Effect) (53:31 AM EDT) [facility] Citrated Kaolin Reaction Time (TEGLYSIS) 6.8 4.6 - 9.1 minutes 10/26/2024 5:02 AM EDT [facility] Citrated Rapid Teg Maximum Amplitude (TEGLYSIS) <40.0(L) 52.0 - 70.0 mm 10/26/2024 5:02 AM EDT [facility] Citrated Functional Fibrinogen Maximum Amplitude (TEGLYSIS) <4.0(L) 15.0 - 32.0 mm 10/26/2024 5:02 AM EDT [facility] Citrated Kaolin Percent Lysis (TEGLYSIS) 1.4 0.0 - 2.6 % 10/26/2024 5:02 AM EDT [facility] Whole Blood (Citrate) 10/26/2024 3:31 AM EDT 10/26/2024 3:40 AM EDT Eber Quinones MD LAB BLOOD ORDERABLES Fin al Result [facility] [address] * CENTRAL LINE SINGLE LUMEN PERFORMABLE (10/25/2024 11:13 PM EDT) Narrative Ben Blake MD - 10/25/2024 11:13 PM EDT Ben Blake MD 10/26/2024 7:45 PM [place] Emily Cath Date/Time: 10/25/2024 11:13 PM Performed [...] EDT) Culture Result <1,000 cfu/mL [facility] Culture Result Skin/Urogeni rony Mckayla. No Further Workup. [facility] Newly Placed Berkowitz Urine URINE SPECIMEN / Unknown 10/25/2024 11:08 PM EDT Comment:urine culture Narrative [facility] - 10/28/2024 9:59 AM EDT urine culture urine culture Harvey Domínguez III, MD MICROBIOLOGY - GENE RAL ORDERABLES Final Result [facility] [address] * Insert Arterial Line (10/25/2024 10:45 PM [...] period is included. Pathologist [facility] Anti-HAV Total (IgG + IgM) Nonreactive 10/25/2024 11:13 PM EDT [facility] Serum 10/25/2024 10:1 7 PM EDT 10/25/2024 10:17 PM EDT Narrative [facility] - 10/25/2024 11:13 PM EDT HAV antibodies not detected us Aysha Gill MD LAB BLOOD ORDERABLES F inal Result [facility] [address] * Iron Studies (Iron + TIBC) (10/25/2024 10:17 PM EDT) Only the most recent of2 resultswithin the time period is included. Iron 128 50 - 212 ug/dL 10/25/2024 10:44 PM EDT [facility] % Iron Saturation SEE COMMENT 15.0 - 55.0 % 10/25/2024 10:44 PM EDT [facility] Comment:Unable to calculate result because contributing result outside reportable range.. TIBC SEE COMMENT 261 - 462 ug/dL 10/25/2024 10:44 PM EDT [facility] Comment:Unable to calculate result because contributing result outside reportable range.. Serum 10/25/2024 10:1 7 PM EDT 10/25/2024 10:17 PM EDT Aysha Gill MD LAB BLOOD ORDERABLES F inal Result Performing Organization Address [facility] Co de Phone Number [facility] [address] [facility] * Hepatitis B Core Antibody (10/25/2024 10:17 PM EDT) Hep B Core Total Ab Nonreactive Nonreactive 10/25/2024 11:07 PM EDT [facility] Comment:Health Department no tified in accordance with reportable infectious disease guidelines. Serum 10/25/2024 10:1 7 PM EDT 10/25/2024 10:17 PM EDT Narrative [facility] - 10/25/2024 11:07 PM EDT A nonreactive final interpretation indicates that anti-HBc antibodies were not detected in the sample; it is possible that the individual is not infected with HBV. Aysha Gill MD LAB BLOOD ORDERABLES F inal Result Performing Organization Address [facility] Co de Phone Number [facility] [address] [facility] * Hepatitis C Antibody (10/25/2024 10:17 PM EDT) Only the most recent of4 resultswithin the time period is included. HCV Ab Nonreactive Nonreactive 10/25/2024 11:16 PM EDT [facility] Comment:Health Department no tified in accordance with reportable infectious disease guidelines. Serum 10/25/2024 10:1 7 PM EDT 10/25/2024 10:17 PM EDT Narrative [facility] - 10/25/2024 11:16 PM EDT Antibodies to HCV not detected; does not exclude the possibility of exposure to HCV. us Aysha Gill MD LAB BLOOD ORDERABLES F inal Result [facility] [address] [place] [address]. [address] * HIV 1+2 Antibody/Antigen with Reflex (10/25/2024 10:17 PM EDT) Only the most recent of2 resultswithin the time period is included. Pathologist [facility] HIV 1+2 AB/AGN Nonreactive Nonreactive 10/25/2024 11:03 PM EDT [facility] Serum 10/25/2024 10:1 7 PM EDT 10/25/2024 10:16 PM EDT Narrative [facility] - 10/25/2024 11:03 PM EDT \HIVRNR us Aysha Gill MD LAB BLOOD ORDERABLES F inal Result Performing Organization Address [facility] Co de Phone Number [facility] [address] [place] [address]. [address] * (ABNORMAL) Hepatitis B Surface Antibody, Quantitati (10/25/2024 10:17 PM EDT) Only the most recent of3 resultswithin the time period is included. HBSAB NUMBER 10.70(H) 0.00 - 9.99 mIU/mL 10/25/2024 11:52 PM EDT [facility] Hep B S Ab Equivocal (A) Nonreactive 10/25/2024 11:52 PM EDT [facility] Serum 10/25/2024 10:1 7 PM EDT 10/25/2024 10:17 PM EDT us Aysha Gill MD LAB BLOOD ORDERABLES F inal Result [facility] [address] [facility]. [address] * Hepatitis B surface antigen (10/25/2024 10:17 PM EDT) Only the most recent of4 resultswithin the time period is included. Hep B Surface Ag Nonreactive Nonreactive 10/25/2024 11:12 PM EDT [facility] Comment:Health Department no tified in accordance with reportable infectious disease guidelines. Serum 10/25/2024 10:1 7 PM EDT 10/25/2024 10:17 PM EDT Narrative [facility] - 10/25/2024 11:12 PM EDT Specimen is considered negative for HBsAg. us Aysha Gill MD LAB BLOOD ORDERABLES F inal Result Performing Organization Address City/State/[facility] Co de Phone Number [facility] [address] [facility] * (ABNORMAL) APTT, NO ANTICOAGULANT (10/25/2024 10:17 PM EDT) aPTT 41.7(H) 25.5 - 35.0 seconds 10/25/2024 10:36 PM EDT [facility] Plasma 10/25/2024 10:1 7 PM EDT 10/25/2024 10:17 PM EDT us Aysha Gill MD LAB BLOOD ORDERABLES F inal Result [facility] [address] [facility]. [address] * PTH (10/25/2024 10:17 PM EDT) PTH 36.0 12.0 - 88.0 pg/mL 10/25/2024 11:01 PM EDT [facility] Serum 10/25/2024 10:1 7 PM EDT 10/25/2024 10:17 PM EDT us Aysha Gill MD LAB BLOOD ORDERABLES F inal Result Performing Organization Address City/[facility]/ZIP Co de Phone Number [facility] [address] [facility]. [address] * (ABNORMAL) Ferritin (10/25/2024 10:17 PM EDT) Only the most recent of2 resultswithin the time period is included. Ferritin 623.2(H) 23.9 - 336.2 ng/mL 10/25/2024 11:02 PM EDT [facility] Serum 10/25/2024 10:1 7 PM EDT 10/25/2024 10:17 PM EDT Aysha Gill MD LAB BLOOD ORDERABLES F inal Result Performing Organization Address [facility] Co de Phone Number [facility] [address] [facility] * (ABNORMAL) Venous Blood Gas, Line/Syringe (10/25/2024 10:00 PM EDT) Only the most recent of5 resultswithin the time period is included. PH-Line Draw 7.38 7.32 - 7.42 10/25/2024 10:08 PM EDT [facility] PCO2-Line Draw 33(L) 41 - 51 mm Hg 10/25/2024 10:08 PM EDT [facility] PO2-Line Draw 33 25 - 40 mm Hg 10/25/2024 10:08 PM EDT [facility] HCO3-Line Draw 20(L) 24 - 28 mmol/L 10/25/2024 10:08 PM EDT [facility] CO2 Content-Line Draw 21(L) 25 - 29 mmol/L 10/25/2024 10:08 PM EDT [facility] Base Excess-Line Draw -5.0(L) -2.0 - 3.0 mmol/L 10/25/2024 10:08 PM EDT [facility] %HBO2-Line Draw 53.8 40.0 - 70.0 % 10/25/2024 10:08 PM EDT [facility] Carboxyhgb-Ludivina e Draw 1.9 % 10/25/2024 10:08 PM EDT [facility] Comment: CARBOXYHEMOGLOBIN (CO) REFERENCE RANGES: Non-Smokers: <2 % Smokers: <8 % TOXIC: >20 % Methemoglobin- Line Draw 0.2 0.0 - 1.5 % 10/25/2024 10:08 PM EDT [facility] Reduced Hemoglobin-Ludivina e Draw 44.1(H) 0.0 - 5.0 % 10/25/2024 10:08 PM EDT [facility] Venous, Line Draw 10/25/2024 10:00 PM EDT 10/25/2024 10:04 PM EDT Aysha Gill MD LAB BLOOD ORDERABLES F inal Result Performing Organization Address [facility] Co de Phone Number [facility] [address] [place] [address] * Donor Specific Antibody (DSA) (10/25/2024 10:00 PM EDT) AntiDonor Antibodies The request and specimen(s) for this test have been received and transported to the [facility] [place] at [address] [place] [address]. The [facility] will report results directly to the client. 10/25/2024 10:20 PM EDT [facility] Comment:Testing performed by [facility], [address] [place] [address]. The [facility] report has been forwarded to the appropriate ordering location. Please refer to this report for patient results. Serum 10/25/2024 10:0 0 PM EDT 10/25/2024 10:20 PM EDT us Aysha Gill MD LAB BLOOD ORDERABLES F inal Result Performing Organization Address [facility] Co de Phone Number [facility] [address] * Hepatitis C RNA, Quant Reflex to Genotyp (10/25/2024 8:18 PM EDT) International Units Not Detected IU/mL 10/27/2024 11:03 AM EDT [facility] Comment:Test methodology for HCV RNA quantification is an FDA-approved nucleic acid amplification assay. The Lower Limit of Quantitation (LLOQ) is 15 IU/mL. The linear range of the assay is 15-100,000,000 IU/mL. The Limit of Detection (LoD) is 12.0 IU/mL for EDTA plasma. The reference range is Not Detected. IU log10 See Note log 10 IU/mL 10/27/2024 11:03 AM EDT [facility] Comment:HCV RNA not detected . Plasma 10/25/2024 8:18 PM EDT 10/25/2024 10:27 PM EDT Aysha Gill MD LAB BLOOD ORDERABLES F inal Result Performing Organization Address [facility] de Phone Number [facility] [address] [place] [address]. [address] * Toxoplasma gondii antibody, IgG (10/25/2024 8:18 PM EDT) Only the most recent of2 resultswithin the time period is included. [facility] Toxoplasma Gondii IgG <3.0 0.0 - 7.1 IU/mL 10/27/2024 7:55 AM EDT [facility] Comment: Negative <7.2 Equivocal 7.2 - 8.7 Positive >8.7 Serum 10/25/2024 8:18 PM EDT 10/27/2024 8:06 AM EDT Narrative [facility] - 10/27/2024 8:06 AM EDT PERFORMED AT: [facility] [address] [id number] COUNSEL: Bassam Khalil, PhD PHONE: [phone] Aysha Gill MD LAB BLOOD ORDERABLES F inal Result Performing Organization Address [facility] Co de Phone Number [facility] [address] [facility] * ABO/Rh (10/25/2024 7:46 PM EDT) Only the most recent of5 resultswithin the time period is included. ABO Grouping O 10/25/2024 10:23 PM EDT [facility] Rh Type Positive 10/25/2024 10:23 PM EDT [facility] Blood 10/25/2024 7:46 PM EDT 10/25/2024 9:54 PM EDT Ben Blake MD BLOOD BANK TEST ORDERABLES Fi nal Result [facility] [address] [place] [address], [facility] * Antibody Screen (10/25/2024 7:46 PM EDT) Only the most recent of3 resultswithin the time period is included. Antibody Screen Negative 10/25/2024 10:41 PM EDT [facility] Blood 10/25/2024 7:46 PM EDT 10/25/2024 9:54 PM EDT Narrative [facility] - 10/25/2024 10:44 PM EDT Testing performed by [facility] Transfusion [facility] Ben Blake MD BLOOD BANK TEST ORDERABLES Fi nal Result Performing Organization Address City/[facility]/ZIP Co de Phone Number [facility] [address] [facility] * Hox - HLA Antibody-Detailed Report (10/22/2024 12:32 PM EDT) 10/22/2024 12:3 2 PM EDT Abdulkadir Gaspar MD LAB BLOOD ORDERABLES Final Resul t [facility] [address] [facility] [place] [facility] [place] [address] * HOX - HLA CROSSMATCH + Detailed Antibody (10/20/2024 5:04 PM EDT) 10/20/2024 5:04 PM EDT Abdulkadir Gaspar MD LAB BLOOD ORDERABLES Final Resul t Performing Organization Address [facility] Co de Phone Number [facility] [address] [facility] [place] [address] * Hox - ABO Typing Report (10/20/2024 5:03 PM EDT) 10/20/2024 5:03 PM EDT Abdulkadir Gaspar MD LAB BLOOD ORDERABLES Final Resul t Performing Organization Address [facility] de Phone Number [facility] [address] [facility] [place] [address] * X-ray Comparison Images (10/20/2024 9:10 AM EDT) Only the most recent of7 resultswithin the time period is included. Narrative EXTERNAL - 10/20/2024 9:10 AM EDT Images associated with this accession number were presented to us for comparison to an examination performed here. Provider Not In System IMG DIAGNOSTIC IMAGING OR DERABLES Final Result Performing Organization Address [facility] de Phone Number EXTERNAL * PRA-HLA Ab Screen (Cytotoxic) (10/15/2024 6:08 AM EDT) [facility] The request and specimen(s) for this test have been received and transported to the [facility] at [address] [place] [address]. The [facility] will report results directly to the client. 10/15/2024 6:42 AM EDT [facility] Comment:The request and spec imen(s) for this test have been received and transported to the [facility] at [address] [place] [address]. The [facility] will report results directly to the client. Serum 10/15/2024 6:08 AM EDT 10/15/2024 6:42 AM EDT Cosmo Pacheco MD LAB BLOOD ORDERABLES Final Resul t Performing Organization Address [facility] Co de Phone Number [facility] [address] [place] [address], [place] [address], [place] * LEFT HEART CATH (10/14/2024 2:09 PM EDT) 10/14/2024 11:4 7 AM EDT Narrative [facility] - 10/14/2024 9:27 PM EDT *[facility]* Cardiac Stonecutter Apprentice Hand [facility] [address] CATHETERIZATION LAB STUDY Patient: Blair Anderson Age: [...] manner. 3. Right radial artery access. A [id number] Glidesheath - Slender - .021 sheath was [...] + + !LV pressure s/d, ed !, dP/xi=7702uz Hg/s! + + + !Aortic pressure s/d (m)!106/58 (75) ! + + + ATTESTATION: Dr. Matta was present for the entire procedure. Dr. Jay Quan was the initial author of this report. Prepared and electronically signed by Irving Matta MD [id number] Procedure Note Irving Matta MD - 10/14/2024 *[facility]* Cardiac Stonecutter Apprentice Hand [address] [place] [address] CATHETERIZATION LAB STUDY Patient: Blair Anderson Age: [...] manner. 3. Right radial artery access. A [id number] Glidesheath - Slender - .021sheath was advanced [...] complications. Contrast: Omnipaque 350 25ml (total dose). Iawftohgy205 125ml (wasted). Radiation: Fluoroscopy time: 15min. Total [...] + !LV pressure s/d, ed !112/1, 22, dP/bc=6496tj Hg/s! + + + !Aortic pressure s/d (m)!106/58 (75) ! + + + ATTESTATION: Dr. Matta was present for the entire procedure. Dr. Jay Quan wasthe initial author of this report. Prepared and electronically signed by Irving Matta MD [id number]:50 [place] [id number] Final Result [facility] * Cardiac Cath Documents [...] mL of GADOBUTROL 1 MMOL/ML INTRAVENOUS SYRINGE ([facility]) administered intravenously COMPARISON: CT 09/03/2024. Ultrasound [...] mL of GADOBUTROL 1 MMOL/ML INTRAVENOUS SYRINGE ([facility])administered intravenously COMPARISON: CT 09/03/2024. Ultrasound 10/07/2024. [...] PM EDT us Kush Posada MD, PhD [facility] MRI ORDERABLES Fi nal Result * (ABNORMAL) Ammonia (10/13/2024 5:35 AM EDT) Only the most recent of3 resultswithin the time period is included. Ammonia 203(HH) 27 - 90 ug/dL 10/13/2024 7:16 AM EDT [facility] Comment: HEMOLYSIS EVIDENT. RESULTS MAY BE INFLUENCED. Critical Result [id number] Called to and read back by: KEY MELO RN at: 10/13/2024 07:15:55 by:NISREEN Plasma 10/13/2024 5:35 AM EDT 10/13/2024 6:19 AM EDT us Ellis Bangff DO LAB BLOOD ORDERABLES Final Resul t Performing Organization Address [facility] Co de Phone Number [facility] [address] * Vancomycin, random (10/11/2024 3:02 AM EDT) Only the most recent of5 resultswithin the time period is included. Vancomycin Random 13.4 ug/mL 10/11/2024 3:37 AM EDT [facility] Comment:Reference range not established for this test. Plasma 10/11/2024 3:02 AM EDT 10/11/2024 3:08 AM EDT us Jodi Ortiz PharmD LAB BLOOD ORDERABLES Final Result Performing Organization Address [facility] de Phone Number [facility] [address] [facility] * IR Paracentesis incl imaging guide [...] and therapeutic paracentesis. Bakari Wahl CNP, Assistant Associate Full Professor Procedure and Findings: The procedure was [...] Using ultrasound guidance, a 10 cm, 5-F LoraxAg Centesis catheter was placed into the right [...] diagnostic andtherapeutic paracentesis. Bakari Wahl CNP, Assistant Associate Full Professor Procedure and Findings: The procedure was [...] Using ultrasound guidance, a 10 cm, 5-F LoraxAg Centesis catheter was placedinto the right lower [...] Culture Result No Growth After 5 Days [facility] Fluid ABDOMEN / Unknown 10/10/2024 1:51 PM EDT 10/10/2024 3:56 PM EDT us Gerri Peterson MD MICROBIOLOGY - GENERAL ORDERABL ES Final Result [facility] [address] * (ABNORMAL) Body fluid cell count (10/10/2024 1:51 PM EDT) Only the most recent of4 resultswithin the time period is included. Color, Fluid Yellow(A) Colorless, Pale Yellow 10/10/2024 5:29 PM EDT [facility] Clarity, Fluid Clear 10/10/2024 5:29 PM EDT [facility] Neutrophil %, Fluid 9 % 10/10/2024 5:29 PM EDT [facility] Lymphocytes %, Fluid 13 % 10/10/2024 5:29 PM EDT [facility] Mesothelial %, Fluid 6 % 10/10/2024 5:29 PM EDT [facility] Macrophage %, Fluid 72 % 10/10/2024 5:29 PM EDT [facility] RBC, Fluid 2,662 /uL 10/10/2024 4:41 PM EDT [facility] Total Nucleated Cells, Fluid 89 /uL 10/10/2024 4:41 PM EDT [facility] Comment:Total Nucleated Cell s represent WBCs and other nucleated cells in the fluid such as lining cells. Ascitic Fluid ABDOMEN / Unknown 1:51 PM EDT 10/10/2024 3:56 PM EDT us Gerri Peterson MD BODY FLUIDS AND STOOLS ORDERABL ES Final Result [facility] [address] [facility]. [address] * UPPER GI ENDOSCOPY (10/10/2024 11:48 AM EDT) 10/10/2024 11:4 8 AM EDT Narrative [facility] - 10/10/2024 12:34 PM EDT [id number] Procedure Date: 10/10/2024 11:48 AM Patient Name: Blair Anderson Date of : 1985 Admit Type: Inpatient Age: 39 Gender: Male Note Status: Finalized Attending MD: Lino Soto MD, [id number] Procedure: Upper GI endoscopy Indications: Gastroesopahgeal variceal [...] verified by the physician, the nurse, the bakery products checker and the air and hydronic balancing technician [...] to hypotension Procedure Code(s): --- Professional --- 63742, GC, Esophagogastroduodenoscopy, flexible, transoral; diagnostic, including collection of specimen(s) by brushing or washing, when performed (separate procedure) Diagnosis Code(s): --- Professional --- I85.00, Esophageal varices 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 All rights reserved. The codes documented in this report are preliminary and upon analytical lab analyst review may be revised to meet current [...] 12:10:16 PM Scope Out: 12:17:[address] [place] [address], [address] us Provider Not In System PROCEDURE/MINOR SURGICAL ORDERABLES Final Result [facility] * ECHO STRESS W/ CONTRAST (10/09/2024 4:37 PM EDT) Anatomical Region Laterality Modality Chest Ultrasound 10/09/2024 2:40 PM EDT Narrative 10/09/2024 6:45 PM EDT * [facility]* [address] [place] [address] Stress Echocardiogram Patient: Blair Anderson Room: 8142 Height: 76in MR Number: [id number] : 1985 Weight: 262lb Account: [id number] Gender: M BP: 125 / 77 Study Date: 10/09/2024 Age: 39 BSA: 2.48m^2 Referring physician: Gerri Peterson Interpreting physician: Tonya Henriquez MD FELLOW Lisa Jha MD PERFORMING Tonya Henriquez MD NAILING MACHINE FEEDER [employer] ORDERING Gerri Peterson REFERRING Gerri [...] was augmented by the addition of hand security sme and leg lifts. The infusion was terminated [...] at baseline or with provocation, shows no ageic-eu-lbmg atrial level shunt. - Pulmonary arteries: Systolic [...] at baseline or with provocation, shows no ebvqk-og-qjzz atrial level shunt. Pulmonary artery: - Systolic [...] at baseline or with provocation, shows no nzrgb-qk-xgxj atrial level shunt. Pericardium: - There is [...] peak heart rate and blood pressure was 45600sc Hg/min. Stress testing did not produce any [...] Reviewed and confirmed by Tonya Henriquez MD [id number]:20 Procedure Note Tonya Henriquez MD - 10/09/2024 * [facility]* [address] [place], [place] [address] Stress Echocardiogram Patient: Blair Anderson Room: 8142 Height: 76in MR Number: [id number] : 1985 Weight: 262lb Account: [id number] Gender: M BP: 125 / 77 Study Date: 10/09/2024 Age: 39 BSA: 2.48m^2 Referring physician: Gerri Peterson Interpreting physician: Tonya Henriquez MD FELLOW Lisa Jha MD PERFORMING Tonya Henriquez MD NAILING MACHINE FEEDER [employer] [place] REFERRING Gerri Peterson Sharice N ADMITTING Gómez Blanchard Procedure:STRESS ECHO - PHARMACOLOGIC Order: Indications: Pre-Operative Clearance (Z01.818). PMH: EtOH Use Disorder. Risk factors: Hypertension. Dyslipidemia. Study data: Height: 76in. 193cm. Weight: 262lb. 118.8kg. The previousstudy was not available, so comparison was made to the report of 07/15/2024. Study status: Routine. Procedure: [facility] A baseline ECG was recorded. Intravenous [...] was augmented by the addition of hand security sme and leg lifts. The infusion was terminated [...] at baseline or with provocation, shows no zmagm-qr-pfjd atrial level shunt. - Pulmonary arteries: Systolic [...] study at baseline or with provocation, showsno ivlco-ib-eiiu atrial level shunt. Pulmonary artery: - Systolic [...] at baseline or with provocation, shows no ncqek-od-ggof atrial level shunt. Pericardium: - There is [...] heart rate). The maximal predicted heart rate [id number]. The target heart rate was 152bpm. The target heart rate was achieved.The heart rate response to stress is normal. There is a normal resting blood pressure with an appropriate response to stress. The rate-pressureproduct for the peak heart rate and blood pressure was 42829pa Hg/min. Stress testing did not produce any [...] Reviewed and confirmed by Tonya Henriquez MD [id number]:20 us Gerri Peterson MD CV ECHO ORDERABLES Final Result * Renal Tx Recipient (10/09/2024 4:59 AM EDT) [facility] Renal Transplant Recipient The request and specimen(s) for this test have been received and transported to the [facility] at [address] [place] [address]. The [facility] will report results directly to the client. 10/09/2024 7:26 AM EDT [facility] Blood 10/09/2024 4:59 AM EDT 10/09/2024 7:26 AM EDT us Aaron Gonzalez MD LAB BLOOD ORDERABLES Final Resu lt [facility] [address] [place] [address], [facility] * (ABNORMAL) MMR(IgG) Panel (Measles, Mumps, Rubella) (10/08/2024 10:25 AM EDT) Only the most recent of2 resultswithin the time period is included. [facility] IgG Positive 10/08/2024 11:39 AM EDT [facility] MUMPS IGG NUM 99.00(H) 0.0 - 8.9 U/mL 10/08/2024 11:39 AM EDT [facility] Rubella IgG Scr Positive 10/08/2024 11:40 AM EDT [facility] RUB NUM 4.15(H) 0.00 - 0.89 INDEX 10/08/2024 11:40 AM EDT [facility] Rubeola Ab, IgG Positive 10/08/2024 11:39 AM EDT [facility] RUB IGG NUM 273.00(H) 0.00 - 13.40 U/mL 10/08/2024 11:39 AM EDT [facility] Serum 10/08/2024 10:2 5 AM EDT 10/08/2024 10:49 AM EDT Narrative [facility] - 10/08/2024 11:40 AM EDT Presence [...] BLOOD ORDERABLES Final Resu lt [facility] [address] * QuantiFERON TB2 Ag (10/08/2024 10:25 AM EDT) QuantiFERON TB2 Ag Value 0.07 10/10/2024 10:41 AM EDT [facility] Plasma 10/08/2024 10:2 5 AM EDT 10/08/2024 11:05 AM EDT Gerri Peterson MD LAB BLOOD ORDERABLES Final Resu lt [facility] [address] * QuantiFERON TB1 Ag (10/08/2024 10:25 AM EDT) QuantiFERON TB1 Ag Value 0.06 10/10/2024 10:41 AM EDT [facility] Plasma 10/08/2024 10:2 5 AM EDT 10/08/2024 11:05 AM EDT Gerri Peterson MD LAB BLOOD ORDERABLES Final Resu lt [facility] [address] [facility] * QuantiFERON Nil (10/08/2024 10:25 AM EDT) Pathologist [facility] QuantiFERON Nil 0.06 10:41 AM EDT [facility] Plasma 10/08/2024 10:2 5 AM EDT 10/08/2024 11:05 AM EDT Result [facility] Gerri Peterson MD LAB BLOOD ORDERABLES Final Resu lt Performing Organization Address City/[facility] Co de Phone Number [facility] [address] [facility] * QuantiFERON Mitogen (10/08/2024 10:25 AM EDT) Pathologist [facility] QuantiFERON Interpretation Negative Negative 10/10/2024 10:41 AM EDT [facility] Comment:Negative result geovanny cates M. tuberculosis infection is NOT likely. Negative results do not preclude tuberculosis infection (especially in immunosuppressed patients). Negative results have a TB antigen minus Nil value less than 0.35 IU/mL. In cases with high suspicion of disease, retesting or additional testing with medical evaluation may be useful. QuantiFERON Mitogen 4.87 10/10 10:41 AM EDT [facility] Plasma 10/08/2024 10:2 5 AM EDT 10/08/2024 11:05 AM EDT Narrative [facility] - 10/10/2024 10:41 AM EDT The [...] ORDERABLES Final Resu lt Performing Organization Address [facility] Co de Phone Number [facility] [address] [facility]. [address] * (ABNORMAL) Vitamin D 25 Hydroxy (10/08/2024 10:25 AM EDT) Vit D, 25-Hydroxy 7.1(L) 30.0 - 100.0 ng/mL 10/08/2024 11:36 AM EDT [facility] Comment: Vitamin D deficiency has been defined by the [place] of [employer] (IOM) and an Endocrine Society [...] ORDERABLES Final Resu lt Performing Organization Address [facility] Co de Phone Number [facility] [address] * Reticulocyte Count, Auto (10/08/2024 7:41 AM EDT) Retic Ct Pct 1.35 0.50 - 2.00 % 10/08/2024 9:12 AM EDT [facility] Retic Ct Abs 26,190 25,000 - 90,000 /uL 10/08/2024 9:14 AM EDT [facility] Immature Retic Fract 0.37 0.09 - 0.56 10/08/2024 9:12 AM EDT [facility] Whole Blood 10/08/2024 7:41 AM EDT 10/08/2024 8:51 AM EDT Gómez Blanchard MD LAB BLOOD ORDERABLES Final Res ult Performing Organization Address [facility]/ZIP Co de Phone Number [facility] [address] [place] [address] * (ABNORMAL) Haptoglobin (10/08/2024 7:41 AM EDT) Haptoglobin <30(L) 44 - 215 mg/dL 10/08/2024 8:53 AM EDT [facility] Serum 10/08/2024 7:41 AM EDT 10/08/2024 7:51 AM EDT Kush Posada MD, PhD LAB BLOOD ORDERABLES Final Result Performing Organization Address [facility] Co de Phone Number [facility] [address] * (ABNORMAL) Lactate dehydrogenase (10/08/2024 5:36 AM EDT) LD 102(L) 110 - 270 U/L 10/08/2024 8:20 AM EDT [facility] Plasma 10/08/2024 5:36 AM EDT 10/08/2024 7:58 AM EDT Gómez Blanchard MD LAB BLOOD ORDERABLES Final Res ult [facility] [address] * Enteric Pathogen Panel (10/07/2024 10:50 PM EDT) Only the most recent of2 resultswithin the time period is included. Campylobacter Group (C. ecoli, C. jejuni, C. trino) Not Detected Not Detected 10/08/2024 4:40 AM EDT [facility] Salmonella species Not Detected Not Detected 10/08/2024 4:40 AM EDT [facility] Shigella species Not Detected Not Detected 10/08/2024 4:40 AM EDT [facility] Vibrio Group (Vibrio cholerae, Vibrio parahaemolyticus) Not Detected Not Detected 10/08/2024 4:40 AM EDT [facility] Yersinia enterocolitica Not Detected Not Detected 10/08/2024 4:40 AM EDT [facility] Shiga toxin 1 Not Detected Not Detected 10/08/2024 4:40 AM EDT [facility] Shiga toxin 2 Not Detected Not Detected 10/08/2024 4:40 AM EDT [facility] Norovirus Not Detected Not Detected 10/08/2024 4:40 AM EDT [facility] Rotavirus Not Detected Not Detected 10/08/2024 4:40 AM EDT [facility] Comment: The Enteric Pathogen Panel is [...] STOOLS ORDERABLE S Final Result [facility] [address] [place] [address], [facility] * Urine Drug Confirmation (10/07/2024 10:50 PM EDT) Only the most recent of2 resultswithin the time period is included. BARBITURATES NOT PRESENT 10/09/2024 1:33 PM EDT [facility] BENZODIAZEPINES PRESENT 1:33 PM EDT [facility] Nordiazepam 3 ng/mL 10/09/2024 1:33 PM EDT [facility] Temazepam 6 ng/mL 10/09/2024 1:33 PM EDT [facility] CANNABINOIDS NOT PRESENT 10/09/2024 1:33 PM EDT [facility] MUSIC PROFESSIONALS STIMULANTS NOT PRESENT 1:33 PM EDT [facility] OPIOID ANALGESICS PRESENT 025 1:33 PM EDT [facility] Oxycodone 300 ng/mL 10/09/2024 1:33 PM EDT [facility] Oxymorphone 32 ng/mL 10/09/2024 1:33 PM EDT [facility] Tramadol >1000 ng/mL 10/09/2024 1:33 PM EDT [facility] OPIOID ANTAGONISTS NOT PRESENT 10/09 1:33 PM EDT [facility] SEDATIVES/MUSCLE RELAXANTS NOT PRESENT 10/09/2024 1:33 PM EDT [facility] TRICYCLIC ANTIDEPRESSANTS NOT PRESENT 10/09/2024 1:33 PM EDT [facility] Urine 10/07/2024 10:5 0 PM EDT 10/08/2024 3:00 AM EDT Gerri Peterson MD URINE ORDERABLES Final Result [facility] [address] [place] [address], [facility] * Giardia Cryptosporidium Antigens (10/07/2024 10:50 PM [...] 10/08/2024 1:53 AM EDT Comment:F Bisijusten Hernandez MICROBIOLOGY - GENERAL ORDERABLE S Final Result [facility] [address] [facility]. [place] [id number], [facility] * Comprehensive Drug Screen (10/07/2024 10:50 PM EDT) Only the most recent of2 resultswithin the time period is included. Creatinine, Ur CANCELED mg/dL 10/08/2024 7:09 AM EDT [facility] Comment:The released value 8 7.30 was canceled by YAQUELIN on 10/08/2024 07:09 BARBITURATES CANCELED [facility] Butalbital CANCELED [facility] Phenobarbital CANCELED [facility] Secobarbital CANCELED [facility] BENZODIAZEPINES CANCELED [facility] Alprazolam CANCELED [facility] Clonazepam CANCELED [facility] Diazepam CANCELED [facility] Alpha-Hydroxyalprazo mcknight CANCELED [facility] Lorazepam CANCELED [facility] Midazolam CANCELED [facility] Nordiazepam CANCELED [facility] Oxazepam CANCELED [facility] Temazepam CANCELED [facility] CANNABINOIDS CANCELED [facility] THC-COOH CANCELED [facility] MUSIC PROFESSIONALS STIMULANTS CANCELED [facility] Cocaine Metabolite(benzoylec gonine) CANCELED [facility] Amphetamine CANCELED [facility] Methamphetamine CANCELED [facility] MDA CANCELED [facility] MDEA CANCELED [facility] Phencyclindine (PCP) CANCELED [facility] OPIOID ANALGESICS CANCELED [facility] Heroin Metabolite(6-RAMONA) CANCELED [facility] Codeine CANCELED [facility] Morphine CANCELED [facility] Hydrocodone CANCELED [facility] Hydromorphone [facility] Oxycodone CANCELED [facility] Oxymorphone [facility]ED [facility] Meperidine CANCELED [facility] Normeperidine CANCELED [facility] Methadone CANCELED [facility] Methadone Metabolite (EDDP) CANCELED [facility] Tramadol CANCELED [facility] Fentanyl CANCELED [facility] Norfentanyl CANCELED [facility] Sufentanil CANCELED [facility] OPIOID ANTAGONISTS CANCELED [facility] Buprenorphine [facility]ED [facility] Norbuprenorphine CANCELED [facility] Naltrexone CANCELED [facility] Naloxone CANCELED [facility] SEDATIVES/MUSCLE RELAXANTS CANCELED [facility] Carisoprodol CANCELED [facility] Meprobamate CANCELED [facility] TRICYCLIC ANTIDEPRESSANTS CANCELED [facility] Amitriptyline CANCELED [facility] Clomipramine CANCELED [facility] Desipramine [facility] Doxepin CANCELED [facility] Imipramine CANCELED [facility] Nortriptyline [facility] Urine Creatinine CANCELED mg/dL [facility] Nitrite CANCELED [facility] Glutaraldehyde CANCELED [facility] pH CANCELED 10/08/2024 7:09 AM EDT [facility] Comment:The released value 5 .6 was canceled by YAQUELIN on 10/08/2024 07:09 Specific [place] CANCELED 10/09/19 7:09 AM EDT [facility] Comment:The released value 1 .009 was canceled by YAQUELIN on 10/08/2024 07:09 Bleach CANCELED [facility] Pyridinium Chlorochromate CANCELED [facility] Urine 10/07/2024 10:5 0 PM EDT 10/08/2024 2:07 AM EDT Narrative [facility] - 10/08/2024 7:09 AM EDT See accn [id number] us Gerri Peterson MD URINE ORDERABLES Edited Result - Final [facility] [address] [place] [address], [facility] * (ABNORMAL) Urine Drug Screen Reflex to Confirmation (10/07/2024 10:50 PM EDT) Only the most recent of2 resultswithin the time period is included. Amphetamine, 500 ng/mL Cutoff Negative Negative 10/08/2024 3:00 AM EDT [facility] Barbiturates UR, 300 ng/mL Cutoff Negative Negative 10/08/2024 3:00 AM EDT [facility] Buprenorphine, 5 ng/mL Cutoff Negative Negative 10/08/2024 3:00 AM EDT [facility] Benzodiazepines UR, 300 ng/mL Cutoff Negative Negative 10/08/2024 3:00 AM EDT [facility] Cocaine UR, 300 ng/mL Cutoff Negative Negative 10/08/2024 3:00 AM EDT [facility] Methadone, UR, 300 ng/mL Cutoff Negative Negative 10/08/2024 3:00 AM EDT [facility] Opiates UR, 300 ng/mL Cutoff Negative Negative 10/08/2024 3:00 AM EDT [facility] Oxycodone, 100 ng/mL Cutoff Presumptive Positive(A) Negative 10/08/2024 3:00 AM EDT [facility] Tricyclic Antidepressants, 300 ng/mL Cutoff Negative Negative 10/08/2024 3:00 AM EDT [facility] Comment:This test has been d eveloped and its performance characteristics determined by [facility] which is certified under [...] Negative 10/08/2024 3:00 AM EDT [facility] Comment:This is a screening method only and may be associated with false positive and/or false negative results. Results are not definitive without additional confirmatory testing by mass spectrometry. Fentanyl, 2 ng/mL Cutoff Negative Negative 10/08/2024 3:00 AM EDT [facility] Comment:This test has been d eveloped and its performance characteristics determined by [facility] which is certified under [...] 10/08/2024 2:08 AM EDT Narrative [facility] - 10/08/2024 3:00 AM EDT CONFIRMATION TO FOLLOW Gerri Peterson MD URINE ORDERABLES Final Result Performing Organization Address [facility] Co de Phone Number [facility] [address] [place] [address]. [address] * Ova and Parasite Comprehensive w/ Giardia/Crypto (10/07/2024 10:50 PM EDT) O & P Method: Concentration and Trichrome Stain [facility] Results No Amoeba, Ova, Or Parasites Seen. -- O and P examination of additional specimens is recommended only for symptomatic patients, immunosuppressed patients or those with an appropriate travel history. [facility] Feces FECES / Unknown 10/07/2024 1 0:50 PM EDT 10/08/2024 1:53 AM EDT Comment:F Bisi Hernandez DO MICROBIOLOGY - GENERAL ORDERABLE S Final Result Performing Organization Address [facility] de Phone Number [facility] [address] [place] [address]. [address] * Hepatitis A IgM (10/07/2024 6:38 PM EDT) Only the most recent of3 resultswithin the time period is included. Hep A IgM Nonreactive Nonreactive 10/07/2024 7:46 PM EDT [facility] Serum 10/07/2024 6:38 PM EDT 10/07/2024 6:52 PM EDT Narrative [facility] - 10/07/2024 7:46 PM EDT IgM anti-HAV not detected. Does not exclude the possibility of exposure to or infection with HAV. Levels of IgM anti-HAV may be below the cut-off in early infection. Gerri Peterson MD LAB BLOOD ORDERABLES Final Resu lt Performing Organization Address [facility] Co de Phone Number [facility] [address] * Syphilis Screening (Trepia) (10/07/2024 6:37 PM EDT) Treponema Pallidum Negative Negative 10/07/2024 8:27 PM EDT [facility] Comment: No serological evidence of infection with Treponema pallidum (incubating or early primary syphilis cannot be excluded). Serum 10/07/2024 6:3 7 PM EDT 10/07/2024 6:50 PM EDT Gerri Peterson MD LAB BLOOD ORDERABLES Final Resu lt Performing Organization Address [facility] Co de Phone Number [facility] [address] [facility] * (ABNORMAL) CMV IgG Antibody (10/07/2024 6:37 PM EDT) CMV IgG Positive(A ) Negative 10/07/2024 8:26 PM EDT [facility] CMV IGG NUM 8.40(H) 0.00 - 0.59 U/mL 10/07/2024 8:26 PM EDT [facility] Serum 10/07/2024 6:37 PM EDT 10/07/2024 6:50 PM EDT Gerri Peterson MD LAB BLOOD ORDERABLES Final Resu lt Performing Organization Address City/[facility]/ZIP Co de Phone Number [facility] [address] [facility] * (ABNORMAL) Alpha 1 Antitrypsin AAT Quant & Mutation (10/07/2024 6:37 PM EDT) A-1 Antitrypsin 99(L) 101 - 187 mg/dL 10/09/2024 4:28 AM EDT [facility] A-1 Antitrypsin Pheno Comment 10/10/2024 4:05 PM EDT [facility] Comment: A1A Phenotype is consistent with a heterozygous phenotype consisting of one M (normal) allele and one allele that cannot be identified at this time. The unknown allele is not consistent with Z (deficient), S (deficient), or F (deficient). MM Phenotype is considered to be normal , producing normal serum levels of [id number] inhibitor and not associated with clinical disease. [...] 10/10/2024 4:08 PM EDT Narrative [facility] - 10/10/2024 4:08 PM EDT PERFORMED AT: [facility] [address] [id number] COUNSEL: Bassam Khalil, PhD PHONE: [phone] PERFORMED AT: [facility] [address] [id number] COUNSEL: Mandy Abdul MD PHONE: [phone] us Gerri Peterson MD LAB BLOOD ORDERABLES Final Resu lt [facility] [address] [place] [address], [facility] * Strongyloides Ab (10/07/2024 6:37 PM EDT) Strongyloides Ab Negative Negative 10/11/19 11:51 AM EDT [facility] Serum 10/07/2024 6:37 PM EDT 10/10/2024 12:07 PM EDT Narrative [facility] - 10/10/2024 12:07 PM EDT PERFORMED AT: [facility] [id number] COUNSEL: Mandy Abdul MD PHONE: [phone] Gerri Peterson MD LAB BLOOD ORDERABLES Final Resu lt Performing Organization Address City/[facility]/ZIP Co de Phone Number [facility] [address] [facility] * Ethanol, Serum (10/07/2024 6:37 PM EDT) Only the most recent of3 resultswithin the time period is included. Pathologist [facility] Ethanol <10 0 - 10 mg/dL 10/07/2024 8:36 PM EDT [facility] Serum 10/07/2024 6:37 PM EDT 10/07/2024 6:50 PM EDT Gerri Peterson MD LAB BLOOD ORDERABLES Final Resu lt [facility] [address] [facility] * Katie-Watkins virus early antigen antibody, IgG (10/07/2024 6:37 PM EDT) Pathologist [facility] EBV Early Antigen Ab, IgG <9.0 0.0 - 8.9 U/mL 10/09/2024 2:16 PM EDT [facility] Comment: Negative < 9.0 Equivocal 9.0 - 10.9 Positive >10.9 Serum Frozen 10/07/2024 6:37 PM EDT 10/09/2024 3:07 PM EDT Narrative [facility] - 10/09/2024 3:07 PM EDT PERFORMED AT: [facility] [id number] COUNSEL: Bassam Khalil, PhD PHONE: [phone] Result [facility] Gerri Pteerson MD LAB BLOOD ORDERABLES Final Resu lt Performing Organization Address [facility] Co de Phone Number [facility] [address] * (ABNORMAL) Varicella zoster antibody, IgG (10/07/2024 6:37 PM EDT) Varicella IgG Positive( A) Negative S/CO 10/07/2024 8:34 PM EDT [facility] Comment:Result indicates the presence of detectable [...] S/CO 10/07/2024 8:34 PM EDT [facility] Serum 10/07/2024 6:37 PM EDT 10/07/2024 6:50 PM EDT Result [facility] Gerri Peterson MD LAB BLOOD ORDERABLES Final Resu lt Performing Organization Address [facility] Co de Phone Number [facility] [address] [facility] * TSH (Thyroid Stimulating Hormone) (10/07/2024 6:37 PM EDT) Only the most recent of2 resultswithin the time period is included. TSH 0.81 0.45 - 4.12 uIU/mL 10/07/2024 8:17 PM EDT [facility] Serum 10/07/2024 6:37 PM EDT 10/07/2024 6:50 PM EDT Result [facility] Gerri Peterson MD LAB BLOOD ORDERABLES Final Resu lt Performing Organization Address City/[facility]/ZIP Co de Phone Number [facility] [address] [facility] * IgA (10/07/2024 6:37 PM EDT) IgA 227.0 70.0 - 400.0 mg/dL 10/08/2024 11:07 AM EDT [facility]ALTH [facility] Comment:Please interpret the se findings in conjunction with clinical findings, protein electrophoresis, and immunotyping/immunofixation results. Serum 10/07/2024 6:37 PM EDT 10/07/2024 6:50 PM EDT Gerri Peterson MD LAB BLOOD ORDERABLES Final Resu lt Performing Organization Address [facility]/ZIP Co de Phone Number [facility] [address] [facility] * (ABNORMAL) Lipid Profile (10/07/2024 6:37 PM EDT) Pathologist [facility] Non-HDL Cholesterol, Calculated See Note 0 - [...] mg/dL 10/07/2024 7:42 PM EDT [facility] HDL 4(L) 60 - 92 mg/dL [...] 10/07/2024 7:06 PM EDT Narrative [facility] - 10/07/2024 7:42 PM EDT LDL cholesterol calculated using the Friedewald equation. us Gerri Peterson MD LAB BLOOD ORDERABLES Final Resu lt Performing Organization Address City/State/[facility] Co de Phone Number [facility] [address] * X-ray Mandible minimum 4-views (10/07/2024 [...] EXAM: US ABDOMEN COMPLETE EXAM: US DUPLEX [id number] COMPLETE INDICATION: elevated bilirubin COMPARISON: Ultrasound and [...] 0.68-0.79 Left hepatic artery: 0.66-0.72 Procedure Note Albreto Rodriguez MD - 10/07/2024 EXAM: US ABDOMEN COMPLETE EXAM: US DUPLEX [id number] COMPLETE INDICATION: elevated bilirubin COMPARISON: Ultrasound and [...] MD at 10/07/2024 4:26 PM EDT Bisi Mary [facility]IER [facility] US ORDERABLES Final Result * AFP Tumor Marker (10/07/2024 6:00 AM EDT) Only the most recent of3 resultswithin the time period is included. [facility] AFP-Tumor Marker 2.0 0.0 - 9.0 ng/mL 10/07/2024 7:11 AM EDT [facility] Serum 10/07/2024 6:00 AM EDT 10/07/2024 6:39 AM EDT Narrative [facility]ALTH [facility] - 10/07/2024 7:11 AM EDT The testing method for AFP is a chemiluminescent immunoassay manufactured by [employer] Concentrations of AFP obtained by different assay methods or kits may vary and cannot be used interchangeably. AFP results cannot be interpreted as absolute evidence of the presence or absence of malignant disease. Ni Rivera MD LAB BLOOD ORDERABLES Final Resul t Performing Organization Address [facility] Co de Phone Number [facility] [address] [facility] * Osmolality (10/06/2024 2:50 PM EDT) Pathologist [facility] Osmolality, Measured 304 278 - 305 mOsm/kg 10/06/2024 3:49 PM EDT [facility] Serum 10/06/2024 2:50 PM EDT 10/06/2024 2:56 PM EDT Jani Vanegas MD LAB BLOOD ORDERABLES Final Resul t Performing Organization Address [facility] Co de Phone Number [facility] [address] [facility] [place] [id number] * CT Head WO contrast (10/06/2024 1:56 PM EDT) Anatomical Region Laterality Modality Head Computed Tomogra phy 10/06/2024 1:50 PM EDT Impressions 10/06/2024 4:50 PM EDT IMPRESSION: 1. No acute intracranial abnormality. 2. No intracranial mass effect or hemorrhage. Report Verified by: Sehr Abrams MD at 10/06/2024 4:50 PM EDT [...] mmol/L 10/06/2024 1:56 PM EDT [facility] Comment:Reference range not established for this test. Urine 10/06/2024 1:25 PM EDT 10/06/2024 1:32 PM EDT us Jani Vanegas MD URINE ORDERABLES Final Result Performing Organization Address [facility] Co de Phone Number [facility] [address] [place] [address]. [address] * Potassium, urine, random (10/06/2024 1:25 PM EDT) Only the most recent of3 resultswithin the time period is included. Potassium Urine Random 50.0 mmol/L 10/06/2024 1:56 PM EDT [facility] Comment:Reference range not established for this test. Urine 10/06/2024 1:25 PM EDT 10/06/2024 1:32 PM EDT us Jani Vanegas MD URINE ORDERABLES Final Result Performing Organization Address [facility] Co de Phone Number [facility] [address] [facility] * Osmolality, Urine (10/06/2024 1:25 PM EDT) Osmolality, Ur 386 50 - 1,200 mOsm/kg 10/06/2024 1:55 PM EDT [facility] Urine 10/06/2024 1:25 PM EDT 10/06/2024 1:32 PM EDT us Jani Vanegas MD URINE ORDERABLES Final Result Performing Organization Address [facility] Co de Phone Number [facility] [address] [facility] * Creatinine, Urine, Random (10/06/2024 1:25 PM EDT) Only the most recent of2 resultswithin the time period is included. Creatinine, Urine 87.40 mg/dL 10/06/2024 1:56 PM EDT [facility] Comment:Reference range not established for this test. Urine 10/06/2024 1:25 PM EDT 10/06/2024 1:32 PM EDT us Jani Vanegas MD URINE ORDERABLES Final Result Performing Organization Address [facility] Co de Phone Number [facility] [address] [facility]. [address] * Chloride, urine, random (10/06/2024 1:25 PM EDT) Only the most recent of3 resultswithin the time period is included. Chloride, Ur <15 mmol/L 10/06/2024 1:56 PM EDT [facility] Comment:Reference range not established for this test. Urine 10/06/2024 1:25 PM EDT 10/06/2024 1:32 PM EDT Jani Vanegas MD URINE ORDERABLES Final Result Performing Organization Address [facility] Co de Phone Number [facility] [address] * (ABNORMAL) Salicylate Level (10/06/2024 4:01 AM EDT) Salicylate Lvl <3(L) 10 - 30 mg/dL 10/06/2024 4:58 AM EDT [facility] Serum 10/06/2024 4:01 AM EDT 10/06/2024 4:22 AM EDT Bisi Hernandez DO LAB BLOOD ORDERABLES Final Resul t [facility] [address] [place] [id number] * Upper Respiratory Viral/Bacterial Panel-EVENT PROMOTIONS COORDINATOR Only (10/06/2024 3:12 AM EDT) [facility] Adenovirus Not Detected Not Detected 10/06/2024 11:38 PM EDT [facility] Coronavirus ([id number],OC 43) Not Detected Not Detected 10/06/2024 11:38 PM EDT [facility] [facility] SARS-CoV-2 Not Detected Not Detected 10/06/2024 11:38 PM EDT [facility] Human Metapneumovirus Not Detected Not Detected 10/06/2024 11:38 PM EDT [facility] Human Rhinovirus/Enterov irus Not Detected Not Detected 10/06/2024 11:38 PM EDT [facility] Influenza A Not Detected Not Detected 10/06/2024 11:38 PM EDT [facility] Influenza A H1 Not Detected Not Detected 10/06/2024 11:38 PM EDT [facility] Influenza A/H1-2009 Not Detected Not Detected 10/06/2024 11:38 PM EDT [facility] Influenza A H3 Not Detected Not Detected 10/06/2024 11:38 PM EDT [facility] Influenza B Not Detected Not Detected 10/06/2024 11:38 PM EDT [facility] Parainfluenza 1 Not Detected Not Detected 10/06/2024 11:38 PM EDT [facility] Parainfluenza 2 Not Detected Not Detected 10/06/2024 11:38 PM EDT [facility] Parainfluenza 3 Not Detected Not Detected 10/06/2024 11:38 PM EDT [facility] Parainfluenza 4 Not Detected Not Detected 10/06/2024 11:38 PM EDT [facility] Resp. Syncycial Virus A Not Detected Not Detected 10/06/2024 11:38 PM EDT [facility] Resp. Syncycial Virus B Not Detected Not Detected 10/06/2024 11:38 PM EDT [facility] Chlamydia pneumoniae Not Detected Not Detected 10/06/2024 11:38 PM EDT [facility] Mycoplasma pneumoniae Not Detected Not Detected 10/06/2024 11:38 PM EDT [facility] Comment: The Respiratory Viral-Bacterial Panel is [...] sent to the [place] [facility] in accordance with state requirements. For a fact sheet for healthcare providers, see https://www.fda.gov/media/315908/download. For a fact sheet for patients, see https://www.fda.gov/media/922123/download. Nasopharyngeal Swab NASOPHARYNGEAL SWAB / Unknown 10/06/2024 3:12 AM EDT 10/06/2024 5:41 PM EDT Comment:EVENT PROMOTIONS COORDINATOR Bisi Hernandez DO BODY FLUIDS AND STOOLS ORDERABLE S Final Result Performing Organization Address City/State/[facility] Co de Phone Number [facility] [address] [place], [place] [address] * Thyroid Function [place] (10/06/2024 1:04 AM EDT) TSH 0.84 0.45 - 4.12 uIU/mL 10/06/2024 2:20 AM EDT [facility] Serum 10/06/2024 1:04 AM EDT 10/06/2024 1:39 AM EDT us Bisi Hernandez DO LAB BLOOD ORDERABLES Final Resul t Performing Organization Address [facility] Co de Phone Number [facility] [address] * #2 Blood culture-Peripheral site 2 (10/06/2024 1:04 AM EDT) Only the most recent of4 resultswithin the time period is included. Culture Result No Growth After 5 Days [facility] Blood BLOOD SPECIMEN / Unknown 10/06/2024 1:04 AM EDT 10/06/2024 4:57 AM EDT Narrative [facility] - 10/11/2024 5:05 AM EDT Suboptimal volume of blood received. Interpret results with caution. Bisi Hernandez DO MICROBIOLOGY - GENERAL ORDERABLE S Final Result Performing Organization Address [facility] Co de Phone Number [facility] [address] * (ABNORMAL) Acetaminophen Level (10/06/2024 1:04 AM EDT) Acetaminophen Level <10(L) 10 - 30 ug/mL 10/06/2024 2:08 AM EDT [facility] Serum 10/06/2024 1:04 AM EDT 10/06/2024 1:30 AM EDT Bisi Hernandez DO LAB BLOOD ORDERABLES Final Resul t Performing Organization Address [facility] Co de Phone Number [facility] [address] [facility]. [address] * Renal Function Panel, Fasting (09/16/2024 [...] RODRIGUEZ us Ashley JACOME PROCEDURE/MINOR SURGICAL ORDE RABJOSE R Final Result * (ABNORMAL) Clostridium difficile DNA Amplification (09/09/2024 4:58 AM EDT) [facility] Clost. Diff DNA Amp. Positive( A) Negative [...] ORDERA BLES Final Result Performing Organization Address [facility] de Phone Number [facility] [address] [facility] * Clostridium Difficile Toxin A/B Antigen (09/09/2024 4:58 AM EDT) [facility] CDIFF Tox AGN Negative Negative 09/09/2024 1:57 [...] ORDERA BLES Final Result Performing Organization Address [facility] de Phone Number [facility] [address] [facility] [address] * Phosphorus, AM (09/05/2024 7:24 AM EDT) Only the most recent of3 resultswithin the time period is included. [facility] Phosphorus 2.1 2.1 - 4.7 mg/dL 09/05/2024 8:25 AM EDT [facility] Plasma 09/05/2024 7:24 AM EDT 09/05/2024 7:38 AM EDT us Kiet Ramirez MD LAB BLOOD ORDERABLES Denisse tori Result [facility] [address] [place] [id number], [facility] * (ABNORMAL) Basic Metabolic panel, AM (09/05/2024 7:24 AM EDT) Only the most recent of10 resultswithin the time period is included. Sodium 134 133 - 146 mmol/L 09/05/2024 8:25 AM EDT [facility] Potassium 3.6 3.5 - 5.3 mmol/L 09/05/2024 8:25 AM EDT [facility] Chloride 107 98 - 110 mmol/L 09/05/2024 8:25 AM EDT [facility] CO2 19(L) 21 - 33 mmol/L 09/05/2024 8:25 AM EDT [facility] Anion Gap 8 3 - 16 mmol/L 09/05/2024 8:25 AM EDT [facility] BUN 42(H) 7 - 25 mg/dL 09/05/2024 8:25 AM EDT [facility] Creatinine 2.92(H) 0.60 - 1.30 mg/dL 09/05/2024 8:25 AM EDT [facility] Glucose 108(H) 70 - 100 mg/dL 09/05/2024 8:25 AM EDT [facility] Calcium 8.6 8.6 - 10.3 mg/dL 09/05/2024 8:25 AM EDT [facility] Osmolality, Calculated 289 278 - 305 mOsm/kg 09/05/2024 8:25 AM EDT [facility] EGFR 27 09/05/2024 8:25 AM EDT [facility] Comment:As of 2021, the estimated GFR [...] ORDERABLES Denisse l Result Performing Organization Address [facility] Co de Phone Number [facility] [address] [facility] * Fluid Creatinine (09/04/2024 11:01 AM EDT) Creat, Fluid 3.17 mg/dL 09/04/2024 6:15 PM EDT [facility] Comment:Reference range not established for this test. Abdominal Fluid ABDOMEN / Unknown 025 11:01 AM EDT 09/04/2024 5:25 PM EDT Narrative [facility] - 09/04/2024 6:15 PM EDT This assay has been modified from the motor vehicle license clerk's specifications and has been validated with performance characteristics determined by [facility] in accordance with federal [...] OR DERABLES Final Result Performing Organization Address [facility] Co de Phone Number [facility] [address] [facility] * Protein, Body fluid (09/04/2024 11:01 AM EDT) Only the most recent of2 resultswithin the time period is included. Protein, Fluid <3.0 g/dL 09/04/2024 6:15 PM EDT [facility] Comment:Reference range not established for this test. Ascitic Fluid ABDOMEN / Unknown 11:01 AM EDT 09/04/2024 5:25 PM EDT Narrative [facility] - 09/04/2024 6:15 PM EDT This assay has been modified from the motor vehicle license clerk's specifications and has been validated with performance characteristics determined by [facility] in accordance with federal [...] OR DERABLES Final Result Performing Organization Address [facility] de Phone Number [facility] [address] * Albumin, fluid (09/04/2024 11:01 AM EDT) Only the most recent of2 resultswithin the time period is included. Albumin, Fluid <1.5 g/dL 09/04/2024 6:15 PM EDT [facility] Comment:Reference range not established for this test. Abdominal Fluid ABDOMEN / Unknown 025 11:01 AM EDT 09/04/2024 5:[address] [facility] - 09/04/2024 6:15 PM EDT This assay has been modified from the motor vehicle license clerk's specifications and has been validated with performance characteristics determined by [facility] in accordance with federal [...] OR DERABLES Final Result Performing Organization Address [facility] de Phone Number [facility] [address] [place] [id number], [place] * Lipase (09/04/2024 5:22 AM EDT) Only the most recent of2 resultswithin the time period is included. Lipase 40 4 - 82 U/L 09/04/2024 11:41 AM EDT [facility] Plasma 09/04/2024 5:22 AM EDT 09/04/2024 11:23 AM EDT Kiet Ramirez MD LAB BLOOD ORDERABLES Denisse l Result Performing Organization Address City/[facility]/ZIP Co de Phone Number [facility] [address] [facility] * MRSA/Staph aureus DNA ??? Diagnostic testing for pneumonia (09/03/2024 3:21 PM EDT) MRSA, PCR Negative Negative 09/03/2024 7:48 PM EDT [facility] Staph Aureus, PCR Negative Negative 09/03/2024 7:48 PM EDT [facility] Comment:Test method is a FDA approved amplified DNA assay. Nares Swab BOTH ANTERIOR NARES / Unknown 09/03/2024 3:21 PM EDT 09/03/2024 4:25 PM EDT Narrative [facility] - 09/03/2024 7:48 PM EDT Diagnosis of MRSA Pneumonia->Yes - Place [id number] (this order) Kiet Ramirez MD MICROBIOLOGY - GENERAL OR DERABLES Final Result [facility] [address] [facility] * (ABNORMAL) Urine Drug Screen without Confirmation, STAT (09/03/2024 3:21 PM EDT) Amphetamine, 500 ng/mL Cutoff Negative Negative 09/03/2024 4:17 PM EDT [facility] Barbiturates UR, 300 ng/mL Cutoff Negative Negative 09/03/2024 4:17 PM EDT [facility] Buprenorphine, 5 ng/mL Cutoff Negative Negative 09/03/2024 4:17 PM EDT [facility] Benzodiazepines UR, 300 ng/mL Cutoff Negative Negative 09/03/2024 4:17 PM EDT [facility] Cocaine UR, 300 ng/mL Cutoff Negative Negative 09/03/2024 4:17 PM EDT [facility] Methadone, UR, 300 ng/mL Cutoff Negative Negative 09/03/2024 4:17 PM EDT [facility] Opiates UR, 300 ng/mL Cutoff Presumptive Positive(A) Negative 09/03/2024 4:17 PM EDT [facility] Oxycodone, 100 ng/mL Cutoff Negative Negative 09/03/2024 4:17 PM EDT [facility] Tricyclic Antidepressants, 300 ng/mL Cutoff Negative Negative 09/03/2024 4:17 PM EDT [facility] Comment:This test has been d eveloped and its performance characteristics determined by [facility] which is certified under [...] Negative 09/03/2024 4:17 PM EDT [facility] Comment:This is a screening method only and may be associated with false positive and/or false negative results. Results are not definitive without additional confirmatory testing by mass spectrometry. Fentanyl, 2 ng/mL Cutoff Negative Negative 09/03/2024 4:17 PM EDT [facility] Comment:This test has been d eveloped and its performance characteristics determined by [facility] which is certified under [...] sult [facility] [address] * Urea Nitrogen, Urine (09/03/2024 3:21 PM EDT) Pathologist [facility] Urea Nitrogen, Ur 350 mg/dL 09/03/2024 4:12 PM EDT [facility] Comment:Reference range not established for this test. Urine 09/03/2024 3:21 PM EDT 09/03/2024 3:30 PM EDT us Kiet Ramirez MD URINE ORDERABLES Final Re sult Performing Organization Address [facility] Co de Phone Number [facility] [address] [facility] * Hepatitis B Core IgM (09/03/2024 1:43 PM EDT) [facility] Hep B Core IgM Nonreactive Nonreactive 09/03/2024 3:50 PM EDT [facility] Serum 09/03/2024 1:43 PM EDT 09/03/2024 2:17 PM EDT Narrative [facility] - 09/03/2024 3:50 PM EDT The result will be immediately released to [facility] when marked final. Do you believe the result release to [facility] should be delayed based on either the Preventing Harm or Privacy exceptions of the Cures Rule?->No IgM anti-HBc not detected. Does not exclude the possibility of exposure to or infection with HBV. us Kiet Ramirez MD LAB BLOOD ORDERABLES Denisse l Result Performing Organization Address [facility]/ZIP Co de Phone Number [facility] [address] [facility] * T4, Free (09/03/2024 1:43 PM EDT) Pathologist [facility] Free T4 0.74 0.61 - 1.76 ng/dL 09/03/2024 6:34 PM EDT [facility] Comment:Biotin megadosing (c onsumption >300 mcg/day) may falsely elevate free T4. When indicated, discontinue megadosing for 1 week and repeat testing. Serum 09/03/2024 1:43 PM EDT 09/03/2024 2:17 PM EDT Kiet Ramirez MD LAB BLOOD ORDERABLES Denisse l Result Performing Organization Address [facility] Co de Phone Number [facility] [address] * (ABNORMAL) Urinalysis, Microscopic (09/03/2024 10:28 AM EDT) RBC, UA 1 0 - 3 /HPF 09/03/2024 11:51 AM EDT [facility] WBC, UA 1 0 - 5 /HPF 09/03/2024 11:51 AM EDT [facility] Squam Epithel, UA <1 0 - 5 /HPF 09/03/2024 11:51 AM EDT [facility] Bacteria, UA Occasional (A) None Seen /HPF 09/03/2024 11:51 AM EDT [facility] Mucus, UA Present(A) None Seen /HPF 09/03/2024 11:51 AM EDT [facility] Urine 09/03/2024 10:2 8 AM EDT 09/03/2024 11:24 AM EDT Kiet Ramirez MD URINE ORDERABLES Final Re sult Performing Organization Address [facility] Co de Phone Number [facility] [address] [place] [address]. [address] * (ABNORMAL) Urinalysis-Macroscopic w/Rfx to Microsco (09/03/2024 10:28 AM EDT) Color, UA Yellow Yellow,Straw 09/03/2024 11:51 AM EDT [facility] Clarity, UA Cloudy(A) Clear 09/03/2024 11:51 AM EDT [facility] Specific [place], UA >1.035(H) 1.005 - 1.035 09/03/2024 11:51 AM EDT [facility] pH, UA 6.5 5.0 - 8.0 09/03/2024 11:51 AM EDT [facility] Protein, UA Trace(A) Negative mg/dL 09/03/2024 11:51 AM EDT [facility] Glucose, UA Negative Negative mg/dL 09/03/2024 11:51 AM EDT [facility] Ketones, UA Negative Negative mg/dL 09/03/2024 11:51 AM EDT [facility] Bilirubin, UA Small(A) Negative 09/03/2024 11:51 AM EDT [facility] Blood, UA Negative Negative 09/03/2024 11:51 AM EDT [facility] Nitrite, UA Negative Negative 09/03/2024 11:51 AM EDT [facility] Urobilinogen, UA <2.0 0.2 - 1.9 mg/dL 09/03/2024 11:51 AM EDT [facility] Leukocyte Esterase, UA Negative Negative 09/03/2024 11:51 AM EDT [facility] Urine 09/03/2024 10:2 8 AM EDT 09/03/2024 10:55 AM EDT us Kiet Ramirez MD URINE ORDERABLES Final Re sult Performing Organization Address City/[facility]/ZIP Co de Phone Number [facility] [address] * Lactic acid, venous (09/03/2024 7:55 AM EDT) Lactate, Shakeel 1.8 0.5 - 2.2 mmol/L 09/03/2024 8:02 AM EDT [facility] Whole Blood VENOUS STRUCTURE / Unknown 09/03/2024 7:55 AM EDT 09/03/2024 7:59 AM EDT us Jarrod Alas MD LAB BLOOD ORDERABLES Final Res ult [facility] [address] * High Sensitivity Troponin (60min) (09/03/2024 7:18 AM EDT) Only the most recent of2 resultswithin the time period is included. High Sensitivity Troponin 14 0 - 20 ng/L 09/03/2024 7:49 AM EDT [facility] Serum 09/03/2024 7:18 AM EDT 09/03/2024 7:18 AM EDT Narrative [facility] - 09/03/2024 7:49 AM EDT Please draw 60min after time that first troponin is drawn. us Rommel Garland MD LAB BLOOD ORDERABLES Final Resul t [facility] [address] * Paracentesis (09/03/2024 7:01 AM EDT) [...] infection and pain Alternatives discussed: No treatment [place] protocol: Procedure explained and questions answered [...] QT: 456 ms QTc: 557 ms P Watson: 76 degrees R Watson: -37 degrees T Watson: 16 degrees Diagnosis Line: INTERPRETATION NOT AVAILABLE--ECG READ IN ER ^ Reconfirmed by PHYSICIAN, ER ([id number]), film or videotape editor Tonya BUTLER ([id number]) on 09/03/2024 8:00:24 AM us Rommel Garland MD ECG ORDERABLES Edited Result - Final MUSE from Last 3 Months Additional Health Concerns 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, VRE- urine 10/31/2024 06/08/2024 Insurance [facility] [employer] [place] [id number] [facility] [employer] Member Subscriber Plan / Payer (Ef fective 2024-Present) Name:Blair Anderson Relation to Subscriber:Self Name:Blair Anderson Payer ID:[id number] Group ID:Not on file Type:Transplant Address: [address] [place] [address] Advance Directives For more information, please contact: [phone] * Full Code (Latest Code Status on [...] 9:55 PM 08/19/2024 4:56 PM Care Teams Claims Adjuster Supervisor Relationship Specialty Start Date End Date Enedina Mcguire NP [address] [place] [address] PCP - General Internal Medicine 10/05/24 Maureen Pantoja, RN Txp Post Coordinator Transplant Hepatology 10/28/24
--- OUTSIDE RECORDS SUMMARY | 2024-12-02 08:08 | XMS_ITS | Encounter Summary ---
Author Organization [facility] Address [address] [place] [address] Care Team Providers Care Gage Designer Name Role Phone Enedina Mcguire NP Primary Care Provider [phone] Source Comments This information has been disclosed [...] release of HIV test results or diagnoses. [id number] Health Encounter Details Date Type Department Care Team (Late st Contact Info) Description 10/14/2024 Chart Note [facility] Kidney Transplant at [address] [place] [phone] Dean Robles [facility] [address] Social History Tobacco Use Types Packs/Day Years Used Date Smoking Tobacco: Former Cigarettes Smokeless Tobacco: Current Alcohol Use Standard Drinks/Week Comments Yes 0 (1 standard drink = 0.6 oz pure alcohol) History of alcohol abuse, reports no use in 3 week- typically endorses use as 4 glasses of wine a days Utilities Answer Date Recorded In the past 12 months has [employer], [employer], oil, or water [email or web address] threatened to shut off services in your [...] Guillen 10/14/2024 9:49 AM EDT Dean berman [facility] [address] Case opened CM Elle ph [phone] Fx [phone] Liver requested urgent review for slk Approved by [facility] letter to files documented in this encounter Plan of Treatment Not on file documented as of this encounter Visit Diagnoses Not on filedocumented in this encounter Additional Health Concerns Infection Onset Date Last Indicated Resolved Time C. difficile 09/09/2024 09/09/2024 10/27/2024 8:30 AM EDT Assessment Noted Time PHQ-9 Depression Total Score: 17 025 11:00 AM EDT documented as of this encounter Care Teams Gage Designer Relationship Specialty Start Date End Date Enedina Mcguire NP [address] [place] [address] PCP - General Internal Medicine 10/05/24 documented as of this encounter
--- OUTSIDE RECORDS SUMMARY | 2024-12-02 08:10 | XMS_ITS | Encounter Summary ---
Author Organization [facility] Address [address] [place] [address] Care Team Providers Care Paper Products Machine Operator Name Role Phone Enedina Mcguire NP Primary Care Provider [phone] Source Comments This information has been disclosed [...] release of HIV test results or diagnoses. [id number] Health Encounter Details Date Type Department Care [...] Recorded In the past 12 months has [employer], oil, or water [email or web address] threatened to shut off services in your [...] as of this encounter Care Teams Paper Products Machine Operator Relationship Specialty Start Date End Date Enedina Mcguire NP [address] [place] [address] PCP - General Internal Medicine 10/05/24 documented as of this encounter
--- OUTSIDE RECORDS SUMMARY | 2024-12-02 08:10 | XMS_ITS | Encounter Summary ---
Author Organization [facility] Address [address] [place] [address] Care Team Providers Care Square Shear Operator Name Role Phone Enedina Mcguire NP Primary Care Provider [phone] Source Comments This information has been disclosed [...] release of HIV test results or diagnoses. [id number] Health Encounter Details Date Type Department Care Team (Late st Contact Info) Description 10/07/2024 Chart Note [facility] Kidney Transplant at [address] [phone] Anny Cote RN Simultaneous Liver-Kidney Transplant Referral [...] Recorded In the past 12 months has [employer], gas, oil, or water [employer] threatened to shut off services in [...] [x] Financial Clearance is pending sent to director of student financial services [x] HLA testing to be ordered once [...] Dialysis Unit: (Not currently on dialysis) Outside warp splitter: Dr. Curran, Yovanny Nicholson MD Routed to [...] documented as of this encounter Care Teams Square Shear Operator Relationship Specialty Start Date End Date Enedina Mcguire NP [address] [place] [address] PCP - General Internal Medicine 10/05/24 documented as of this encounter
--- OUTSIDE RECORDS SUMMARY | 2024-12-02 08:10 | XMS_ITS | Encounter Summary ---
Author Organization [facility] Address [address] [place] [address] Care Team Providers Care Assembler Radio And Electrical Name Role Phone Enedina Mcguire NP Primary Care Provider [phone] Source Comments This information has been disclosed [...] release of HIV test results or diagnoses. [id number] Health Encounter Details Date Type Department Care Team (Late st Contact Info) Description 10/07/2024 Chart Note [facility] Liver Transplant at [address] [place] [phone] Alexandro Sams, RN Spoke with Julien Anderson [...] Recorded In the past 12 months has [employer], gas, oil, or water [employer] threatened to shut off services in [...] documented as of this encounter Care Teams Assembler Radio And Electrical Relationship Specialty Start Date End Date Enedina Mcguire NP [address] [place] [address] PCP - General Internal Medicine 10/05/24 documented as of this encounter
--- OUTSIDE RECORDS SUMMARY | 2024-12-02 08:10 | XMS_ITS | Encounter Summary ---
Author Organization [facility] Address [address] [place] [address] Care Team Providers Care Char Puller Name Role Phone Enedina Mcguire NP Primary Care Provider [phone] Source Comments This information has been disclosed [...] release of HIV test results or diagnoses. [id number] Health Encounter Details Date Type Department Care Team (Late st Contact Info) Description 10/09/2024 Chart Note [facility] Kidney Transplant at [address] [place] [phone] Dean Robles [facility] [phone] call from Elle [facility] fx [phone] Social History Tobacco Use Types Packs/Day Years Used Date Smoking Tobacco: Former Cigarettes Smokeless Tobacco: Current Alcohol Use Standard Drinks/Week Comments Yes 0 (1 standard drink = 0.6 oz pure alcohol) History of alcohol abuse, reports no use in 3 week- typically endorses use as 4 glasses of wine a days Utilities Answer Date Recorded In the past 12 months has [employer], gas, oil, or water company threatened [...] - 10/09/2024 11:57 AM EDT Dean berman [facility] [phone] call from Elle [facility] fx [phone] Set her all clinical Rquesting a urgent [...] documented as of this encounter Care Teams Char Puller Relationship Specialty Start Date End Date Enedina Mcguire NP [address] [place] [address] PCP - General Internal Medicine 10/05/24 documented as of this encounter
--- OUTSIDE RECORDS SUMMARY | 2024-12-02 08:10 | XMS_ITS | Encounter Summary ---
Author Organization [facility] Address [address] [place] [address] Care Team Providers Care Chemical Plant Technical Director Name Role Phone Enedina Mcguire NP Primary Care Provider [phone] Source Comments This information has been disclosed [...] release of HIV test results or diagnoses. [id number] Health Encounter Details Date Type Department Care Team (Late st Contact Info) Description 10/09/2024 Social Work [facility] Liver Transplant at [address] [phone] Kaylin Willard MSW Social History Tobacco Use [...] Recorded In the past 12 months has [employer], gas, oil, or water [employer] threatened to shut off services in your [...] Transplant Patient has been referred to [facility] for liver transplant evaluation. Patient was evaluated by transplant psychiatric social worker on 09/25/2024 and it was determined that patient will need to complete 12 weeks of CD treatment. Patient is engaged in CD treatment with: [facility] [phone] SW met with patient and spouse at [...] during hospitalization pending mental status. NUBIA Barros, INSTRUMENT LENS GRINDER APPRENTICE documented in this encounter Plan of Treatment Not on file documented as of this encounter Visit Diagnoses Not on filedocumented in this encounter Additional Health Concerns Infection Onset Date Last Indicated Resolved Time C. difficile 09/09/2024 09/09/2024 10/27/2024 8:30 AM EDT Assessment Noted Time PHQ-9 Depression Total Score: 17 09/29/2 025 11:00 AM EDT documented as of this encounter Care Teams Chemical Plant Technical Director Relationship Specialty Start Date End Date Enedina Mcguire NP [address] [place] [address] PCP - General Internal Medicine 10/05/24 documented as of this encounter
--- OUTSIDE RECORDS SUMMARY | 2024-12-02 08:10 | XMS_ITS | Encounter Summary ---
Author Organization [facility] Address [address] [place] [address] Care Team Providers Care Medical Reimbursement Specialist Name Role Phone Enedina Mcguire NP Primary Care Provider [phone] Source Comments This information has been disclosed [...] release of HIV test results or diagnoses. [id number] Health Encounter Details Date Type Department Care Team (Late st Contact Info) Description 10/07/2024 Chart Note [facility] Kidney Transplant at [address] [place] [phone] Chey Nicole MA This MA received new [...] In the past 12 months has e [employer], gas, oil, or water [employer] threatened to shut off services in your [...] for PT. Raul NICHOLAS once financially cleared. An [employer] fax was sent to [place] and or [...] as of this encounter Care Teams Medical Reimbursement Specialist Relationship Specialty Start Date End Date Enedina Mcguire NP [address] [place] [address] PCP - General Internal Medicine 10/05/24 documented as of this encounter
--- OUTSIDE RECORDS SUMMARY | 2024-12-02 08:10 | XMS_ITS | Encounter Summary ---
Author Organization [facility] Address [address] [place] [address] Care Team Providers Care Rate Inserter Name Role Phone Enedina Mcguire NP Primary Care Provider [phone] Source Comments This information has been disclosed [...] release of HIV test results or diagnoses. [id number] Health Encounter Details Date Type Department Care Team (Late st Contact Info) Description 10/07/2024 Chart Note [facility] Kidney Transplant at [address] [place] [phone] Anny Cote RN Received notice of [...] Recorded In the past 12 months has [employer], gas, oil, or water [employer] threatened to shut off services in your [...] documented as of this encounter Care Teams Rate Inserter Relationship Specialty Start Date End Date Enedina Mcguire NP [address] [place] [address] PCP - General Internal Medicine 10/05/24 documented as of this encounter
--- OUTSIDE RECORDS SUMMARY | 2024-12-02 08:10 | XMS_ITS | Encounter Summary ---
Author Organization [facility] Address [address] [place] [address] Care Team Providers Care Warehouse Order Picker Name Role Phone Enedina Mcguire NP Primary Care Provider [phone] Source Comments This information has been disclosed [...] release of HIV test results or diagnoses. [id number] Health Encounter Details Date Type Department Care Team (Late st Contact Info) Description 10/09/2024 Chart Note [facility] Kidney Transplant at [address] [place] [phone] Dean Robles [facility] [address] Social History Tobacco Use Types Packs/Day Years Used Date Smoking Tobacco: Former Cigarettes Smokeless Tobacco: Current Alcohol Use Standard Drinks/Week Comments Yes 0 (1 standard drink = 0.6 oz pure alcohol) History of alcohol abuse, reports no use in 3 week- typically endorses use as 4 glasses of wine a days Utilities Answer Date Recorded In the past 12 months has [employer], [facility] [place], oil, or water [employer] threatened to shut off services in your [...] Guillen 10/09/2024 10:37 AM EDT Dean berman [facility] [phone] Called Cammie Wing [phone] Advised of brandon martínez she was aware [...] as of this encounter Care Teams Warehouse Order Picker Relationship Specialty Start Date End Date Enedina Mcguire NP [address] [place] [address] PCP - General Internal Medicine 10/05/24 documented as of this encounter
--- OUTSIDE RECORDS SUMMARY | 2024-12-02 08:10 | XMS_ITS | Encounter Summary ---
Author Organization [facility] Address [facility] [place] [address] Care Team Providers Care Seam Checker Name Role Phone Enedina Mcguire NP Primary Care Provider [phone] Source Comments This information has been disclosed [...] release of HIV test results or diagnoses. [id number] Reason for Visit * Reason Comments After Hours Call Encounter Details Date Type Department Care Team ([facility] Contact Info) Description 10/05/2024 Telephone [facility] PATIENT SERVICES [address] [place] [address] Unknown, Attending Provider After Hours [...] Recorded In the past 12 months has [employer], gas, oil, or water [employer] threatened to shut off services in your [...] ER w/ plans to transfer to [facility] if higher level of care required. [...] Relationship of Caller to Patient and Callback: ABDIAZIZ()[phone] Patient of: DR. LINARES Nature of Call: STATES PT IS SHOWING SIGNS OF CONFUSION. PLEASE ADVISE. Director Of Teaching And Learning Provider Contacted: DR. RETANA Time and Method of Contact: PAGE 10:23AM Advise Caller: If provider does not call back within 30 minutes, please call us back. ROUTE TELEPHONE NOTE - Follow Qgenda and/or Route Directly to Provider. COPY this note into [employer] Teams chat. documented in this encounter Plan of Treatment Not on file documented as of this encounter Visit Diagnoses Not on filedocumented in this encounter Additional Health Concerns Infection Onset Date Last Indicated Resolved Time C. difficile 09/09/2024 09/09/2024 10/27/2024 8:30 AM EDT Assessment Noted Time PHQ-9 Depression Total Score: 17 025 11:00 AM EDT documented as of this encounter Care Teams Seam Checker Relationship Specialty Start Date End Date Enedina Mcguire NP [address] [place] [address] PCP - General Internal Medicine 10/05/24 documented as of this encounter
--- OUTSIDE RECORDS SUMMARY | 2024-12-02 08:12 | XMS_ITS | Referral Summary ---
Author Organization [employer] ([place], [place], [place], [place]) Address [address] [place] [address] Care Team Providers Care Home Hospice Rn Name Role Phone Unavailable Primary Care Provider [...]
--- OUTSIDE RECORDS SUMMARY | 2024-12-02 08:12 | XMS_ITS | Encounter Summary ---
Author Organization [facility] Address [facility] [place] [address] Care Team Providers Care Drama Teacher Name Role Phone Unavailable Primary Care [...] release of HIV test results or diagnoses. [id number] Reason for Visit * Reason Comments After Hours Call Encounter Details Date Type Department Care Team (Late st Contact Info) Description 09/02/2024 Telephone [facility] PATIENT SERVICES [address] [place] [address] Unknown, Attending Provider After Hours [...] Recorded In the past 12 months has [employer], gas, oil, or water [employer] threatened to shut off services in your [...] to Patient and Callback: ALICIA ([facility]) [phone] Patient of: DR. LINARES Nature of Call: CRITICAL LAB RESULT Patient Care Assistant Provider Contacted: DR. VINES Time and Method of Contact:PAGED @ 8:54PM Advise Caller: If provider does not call back within 30 minutes, please call us back. ROUTE TELEPHONE NOTE - Follow Qgenda and/or Route Directly to Provider. COPY this note into [facility] chat. documented in this encounter Plan of [...]
--- OUTSIDE RECORDS SUMMARY | 2024-12-02 08:12 | XMS_ITS ---
Author Organization [facility] Address [address] [place] [address] Care Team Providers Care Finger Waver Name Role Phone Enedina Mcguire NP Primary Care Provider [phone] Maureen Pantoja RN Unavailable Unavail able Transplant Episode Liver Recipient [facility] [place] Organ Received: Liver Transplanted on 10/26/2024 Marked as Active Follow-up on 10/26/2024 Liver CoordinatorMaureen Pantoja RN Phone: N/A Fax: N/A Email: N/A [place] Organ Diagnosis Organ Primary Contributory Liver Alcohol-Associated [...] N/A N/A Chris Orosco MD Referring Physician [phone] N/A Maureen Pantoja RN Txp Post Coordinator N/A N/A N/A NUBIA Barros Txp Charcoal Kiln Burner N/A N/A N/A Harvey Domínguez III, MD Txp Surgeon [phone] N/A Mary Butler RN Txp Pre Coordinator N/A N/A N/A Events Post-Transplant Pre-Transplant Admitted: 10/25/2024 Referred: 08/13/2024 Transplanted: 10/26/2024 Evaluation began: 5 Discharged: 11/02/2024 Committee: 10/14/2024 Center waitlisted: 5 Appointments (11/02/2024 - 01/02/2025) When With Visit Type Description 11/04/2024 Txp Jose Hanna Established Patient Kidney transplant recipient (Primary Dx); Diarrhea of presumed infectious origin; Hypomagnesemia; Hypervolemia, unspecified hypervolemia type; Liver transplant recipient ([facility]); Other hypervolemia; Hyperparathyroidism ([facility]); Nausea and vomiting, unspecified vomiting type 11/04/2024 Txp Ebony Watkins Established Patient Li jemma transplant recipient ([facility]) (Primary Dx); Alcoholic cirrhosis of liver with ascites ([facility]); Kidney transplant recipient; Acute kidney injury superimposed on CKD ([facility]); CKD (chronic kidney disease) stage 4, GFR 15-29 ml/min ([facility]); Immunosuppressive management encounter following liver transplant ([facility]); Abdominal pain, unspecified abdominal location 11/11/2024 Txp Kady De La Rosa Established Patient Encounter for therapeutic drug monitoring (Primary Dx); Abdominal pain, unspecified abdominal location 11/11/2024 Txp Lorrie Mascorro Established Patient Kid haylee replaced by transplant (Primary Dx); Hypervolemia associated with renal insufficiency 11/25/2024 Txp Lalit Oscar Established Patient E ncounter for therapeutic drug monitoring (Primary Dx); S/P liver transplant ([facility]); Hypomagnesemia; Kidney transplant recipient; Hypertension, unspecified type; Gastroesophageal reflux disease, unspecified whether esophagitis present; Abdominal pain, unspecified abdominal location 11/25/2024 TxLorrie Poe Established Patient NADIYA (acute kidney injury) (CMS-HCC) (Primary Dx); Kidney replaced by transplant; Metabolic acidosis; Hypervolemia associated with renal insufficiency
--- OUTSIDE RECORDS SUMMARY | 2024-12-02 08:12 | XMS_ITS | Encounter Summary ---
Author Organization [employer] ([place], [place], [place], [place]) Address [address] [place] [address] Care Team Providers Care Breaker Operator Name Role Phone Unavailable Primary Care Provider Unavailabl e Encounter Details Date Type Department Care Team (Late st Contact Info) Description 06/03/2018 Transcribed Document [facility] [address] [place] [address] ProviderEbenezer MD [address] [place], [place] [id number] Social History Tobacco Use Types Packs/Day Years [...] - Historical ProviderMD - 06/03/2018 2:24 PM FANCY WIRE DRAWER Electronically signed by Gabriela [facility] Conversion Zipper Slide Attacher Cerner at 08/29/2022 6:41 PM CDT documented in this encounter Plan of Treatment Not on file documented as of this encounter Visit Diagnoses Not on filedocumented in this encounter
--- OUTSIDE RECORDS SUMMARY | 2024-12-02 08:12 | XMS_ITS | Encounter Summary ---
Author Organization [employer] ([place], [place], [place], [place]) Address [address] [place] [address] Care Team Providers Care Adjunct Psychology Faculty Member Name Role Phone Unavailable Primary Care Provider Unavailabl e Encounter Details Date Type Department Care Team (Late st Contact Info) Description 06/03/2018 Transcribed Document [facility] Family Medicine [address] [place] [address] ProviderEbenezer MD [address] [place] [address] Social History Tobacco Use Types [...] - Historical ProviderMD - 06/03/2018 3:04 PM PLYWOOD AND VENEER REPAIRER [place] [address] [facility] [place] [address] PERSON INFORMATION Name JULIEN ZELAYA Age 33 Years 1985 Sex Male Language Haitian PCP SALLY EVERETT (REF) T Marital Status Single Med Service Emergency Medicine Acct# Arrival 06/03/2018 12:08:00 Visit Reason Finger laceration; CUT FINGERS Acuity 3 - Urgent LOS 000 02:56 Depart Date: 06/03/18 03:04 PM Address: [address] [facility] [address] Comment: PROVIDER INFORMATION Provider Role Assigned Unassigned Lizeth Almeida, MANAGER COSMETICS Nurse 06/03/2018 12:39:09 DOMINIQUE BREWER PA-C ED [...] PURI # [address]C [address] [place], [place] [id number] [employer] Within 2 to 3 days Comment: documented in this encounter Plan of Treatment Not on file documented as of this encounter Visit Diagnoses Not on filedocumented in this encounter
--- OUTSIDE RECORDS SUMMARY | 2024-12-02 08:12 | XMS_ITS | Encounter Summary ---
Author Organization [employer] ([place], [place], [place], [place]) Address [address] [place] [address] Care Team Providers Care Account Group Supervisor Name Role Phone Unavailable Primary Care Provider Carmen e Encounter Details Date Type Department Care Team (Late st Contact Info) Description 06/03/2018 Transcribed Document [facility] Family Medicine [address] [place] [address] ProviderEbenezer MD [address] [place] [address] Social History Tobacco Use Types [...] - Historical ProviderMD - 06/03/2018 3:04 PM HYDRAULIC BILLET MAKER [address] [place] [address] Patient Information Name: JULIEN ZELAYA [...] [address] [place] [address] [employer] (1) Within 2 to 3 days Patient [...] off of the skin. General Instructions??? Take fkie-plo-ausvjqj and prescription medicines only as told by [...] 04/30/2006 Document Revised: 09/29/2016 Document Reviewed: 04/26/2015 [employer] Interactive Patient Education ? 2017 [employer] Allergies: No Known Medication Allergies Medication [...] verify that JULIEN ZELAYA was seen at [facility] Emergency Department on ,06/03/2018 15:04:17. This [...] Assistance with quitting is available by contacting 7-725-ADFN-NOW. This is a free resource providing counseling, [...] Electronic Communications Privacy Act 18 U.S.C. ???Sections 4059-8568,?? and contain information intended for the specified [...] sure to sign up for the [facility] patient portal, which gives you 04/12 access to your medical information ??? including these discharge instructions ??? using your computer, smartphone, or tablet. Just go to [employer] to get started. Questions? Call . Acknowledgment [...]
--- OUTSIDE RECORDS SUMMARY | 2024-12-02 08:12 | XMS_ITS | Clinical Summary ---
Author Organization [employer] ([place], [place], [place], [place]) Address [address] [place] [address] Care Team Providers Care Quality Worker Name Role Phone Unavailable Primary Care [...]
--- OUTSIDE RECORDS SUMMARY | 2024-12-02 08:12 | XMS_ITS | Encounter Summary ---
Author Organization [facility] Address [address] [place] [address] Care Team Providers Care Robotic Welder Name Role Phone Enedina Mcguire NP Primary Care Provider + [phone] Maureen Pantoja RN Unavailable Unavail able Source [...] release of HIV test results or diagnoses. [id number] Health Encounter Details Date Type Department Care Team (Late st Contact Info) Description 11/18/2024 Chart Note [facility] Liver Transplant at [address] [place] [phone] Marlene Ro MA Social History Tobacco Use [...] Recorded In the past 12 months has [employer], gas, oil, or water [employer] threatened to shut off services in your [...] Panel w/o EGFR (11/13/2024 8:44 AM EDT) Pathologist [facility] Glucose 108 mg/dL BUN 25(A) 4 - [...] 5.0 g/dL Blood Narrative Resulting Agency Comment [facility] Historical Provider LAB BLOOD ORDERABLES Denisse l Result * Tacrolimus level (11/13/2024 8:44 AM EDT) Pathologist [facility] Tacrolimus Lvl 10.9 6 - 15 ng/mL Whole Blood Narrative Resulting Agency Comment [facility] Historical Provider LAB BLOOD ORDERABLES Denisse l Result * (ABNORMAL) CBC and differential (11/13/2024 8:44 AM EDT) Pathologist [facility] Hemoglobin 9.8(A) 13.5 - 17.5 g/dL Hematocrit [...] 5.7 10^3/mL Blood Narrative Resulting Agency Comment [facility] Historical Provider LAB BLOOD ORDERABLES Denisse l Result * (ABNORMAL) Hepatic Function Panel (11/13/2024 8:44 AM EDT) Bilirubin, Direct 0.6 Bilirubin, Indirect 0.2 Alkaline Phosphatase 137 U/L ALT 29 U/L AST 20 U/L Total Bilirubin 0.8 0.1 - 1.4 mg/dL Total Protein 5.8(A) 6.4 - 8.2 g/dL Plasma Narrative Resulting Agency Comment [facility] Historical Provider LAB BLOOD ORDERABLES Denisse l Result documented in this encounter Visit Diagnoses Not on filedocumented in this encounter Additional Health Concerns Infection Onset Date Last Indicated Resolved Time 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
--- OUTSIDE RECORDS SUMMARY | 2024-12-02 08:12 | XMS_ITS | Encounter Summary ---
Author Organization [employer] ([place], [place], [place], [place]) Address [address] [place] [address] Care Team Providers Care Curb Setter Name Role Phone Unavailable Primary Care Provider Unavailabl e Encounter Details Date Type Department Care Team (Late st Contact Info) Description 06/03/2018 Transcribed Document [facility] Family Medicine [address] [place] [address] ProviderEbenezer MD [address] [place], [place] [id number] Social History Tobacco Use Types Packs/Day Years [...] - Historical ProviderMD - 06/03/2018 12:08 PM CONCRETE PUMP OPERATOR ED Assessment Entered On: 06/03/2018 14:51 EST Performed On: 06/03/2018 13:50 EST by Lizeth Almeida, CYLINDER PRESS OPERATOR HELPER Quick Look Assessment Level of Consciousness : Alert Affect/Behavior : Calm, Cooperative Orientation : Oriented x 4 Skin Color : Other: [place] Skin Temperature : Warm Skin Description : Dry Lizeth Almeida, RN - 06/03/2018 14:50 EST ED General-Functional Assess Communication Barrier : None Primary Language : Persian Any Spiritual/Cultural Needs or Requests : No [...] - 06/03/2018 14:50 EST Electronically signed by Luis Eduardo Ochoa Conversion Instructional Technology Coach Cerner at 08/29/2022 6:34 PM CDT documented in this encounter Plan of Treatment Not on file documented as of this encounter Visit Diagnoses Not on filedocumented in this encounter
--- OUTSIDE RECORDS SUMMARY | 2024-12-02 08:12 | XMS_ITS ---
Author Organization [facility] Address [address] [place] [address] Care Team Providers Care Glue Sprayer Name Role Phone Enedina Mcguire NP Primary Care Provider [phone] Maureen Pantoja RN Unavailable Unavail able Transplant Episode Kidney Recipient [facility] ([place], [place]) - [facility] Organ Received: Left Kidney Transplanted on 10/27/2024 Marked as Active Follow-up on 10/27/2024 Kidney CoordinatorJosr Weber RN Phone: N/A Fax: N/A Email: N/A Koi Organ Diagnosis Organ Primary Contributory Kidney Hepatorenal [...] N/A N/A Flaquito Mayen MD Txp Surgeon [phone] N/A Bruno Gonzalez MD Txp Money Room Teller [phone] N/A Yovanny Curran MD Referring Physician [phone] N/A Events Post-Transplant Pre-Transplant Admitted: 10/25/2024 Referred: 10/07/2024 Transplanted: 10/27/2024 Evaluation began: Discharged: 11/02/2024 Committee: 10/20/2024 Center waitlisted: 5
--- OUTSIDE RECORDS SUMMARY | 2024-12-02 08:12 | XMS_ITS | Encounter Summary ---
Author Organization [employer] ([place], [place], [place], [place]) Address [address] [place] [address] Care Team Providers Care Fiberglass Ski Maker Name Role Phone Unavailable Primary Care Provider Unavailabl e Encounter Details Date Type Department Care Team (Late st Contact Info) Description 06/03/2018 Transcribed Document [facility] Family Medicine [address] [place] [address] ProviderEbenezer MD [address] [place], [place] [id number] Social History Tobacco Use Types Packs/Day Years [...] - Historical ProviderMD - 06/03/2018 3:03 PM EMERGENCY TECHNICIAN ED Discharge Entered On: 06/03/2018 15:03 EST Performed On: 06/03/2018 15:03 EST by Lizeth Almeida, pan pusher Process Patient Disposition : Discharge Personal Belongings [...] Lizeth Almeida, RN - 06/03/2018 15:03 EST documented in this encounter Plan of Treatment Not on file documented as of this encounter Visit Diagnoses Not on filedocumented in this encounter
--- OUTSIDE RECORDS SUMMARY | 2024-12-02 08:12 | XMS_ITS | Encounter Summary ---
Author Organization [employer] ([place], [place], [place], [place]) Address [address] [place] [address] Care Team Providers Care Lumber Scaler Name Role Phone Unavailable Primary Care Provider Unavailabl e Encounter Details Date Type Department Care Team (Late st Contact Info) Description 06/03/2018 Transcribed Document [facility] Family Medicine [address] [place] [address] ProviderEbenezer MD [address] [place] [address] Social History Tobacco Use Types [...] - Historical ProviderMD - 06/03/2018 12:08 PM TANK SYSTEMS MAINTAINER ED Triage Entered On: 06/03/2018 12:17 EST Performed On: 06/03/2018 12:12 EST by KANU VELEZ RN ED Triage Across the Room Triage Date/Time : 06/03/2018 12:12 EST Chief Complaint : lacerations to rt index and left middle finger s/p picking up a glass that shattered captain of guards. lacerations noted with bleeding controlled KANU VELEZ RN - 06/03/2018 12:12 EST DCP GENERIC CODE Tracking Acuity : 3 - Urgent Tracking Group : [facility] ED [place] KANU VELEZ RN [...] Estimated Onset Date: Unspecified ; Created By: AKNU VELEZ RN; Reaction Status: Active ; Category: Drug ; Substance: No Known Medication Allergies ; Type: Allergy ; Updated By: KANU VELEZ RN; Reviewed Date: 06/03/2018 12:15 EST Diagnosis Control ED (As Of: 06/03/2018 12:17:41 EST) Problems(Active) HTN (hypertension) (SNOMED CT :3925904614 ) Name of Problem: HTN (hypertension) ; Recorder: KANU VELEZ RN; Confirmation: Confirmed ; Classification: Medical ; Code: [id number] ; Contributor System: Wishabi ; Last Updated: 06/03/2018 12:14 EST ; Life Cycle Date: 06/03/2018 ; Life Cycle Status: Active ; Vocabulary: SNOMED CT Diagnoses(Active) Finger laceration Date: 06/03/2018 ; Diagnosis Type: Reason For Visit ; Confirmation: Complaint of ; Clinical Dx: Finger laceration ; Classification: Medical ; Clinical Service: Emergency medicine ; Code: PNED ; Probability: 0 ; Diagnosis Code: [id number] ED Height and Weight Height Source : Stated Height Entry Format : [place] Height, Feet : 6 ft(Converted to: 183 cm, 72 Inch) Height, Inches : 4 Inch(Converted to: 0 ft 4 Inch, 10.16 cm) Clinical Height : 193.04 cm Weight Source, ED : Standing scale Weight Entry Format : [place] Weight, Pounds : 265 lb Clinical Dosing Weight : 120.45 kg Body Surface Area (BSA) : 2.5 m2 Body Mass Index : 32.3 kg/m2 (HI) [place] Body Weight (IBW) : 85.74 kg KANU [...]
--- OUTSIDE RECORDS SUMMARY | 2024-12-02 08:12 | XMS_ITS | Encounter Summary ---
Author Organization [facility] Address [address] [place] [address] Care Team Providers Care Cell Plasterer Name Role Phone Enedina Mcguire NP Primary Care Provider + [phone] Maureen Pantoja RN Unavailable Unavail able Source [...] release of HIV test results or diagnoses. [id number] Reason for Visit * Reason Comments Results Encounter Details Date Type Department Care Team (Riky st Contact Info) Description 11/18/2024 Telephone [facility] Liver Transplant at [address] [phone] Maureen Pantoja, RN Results Social [...] In the past 12 months has e [employer], gas, oil, or water [employer] threatened to shut off services in your [...] as of this encounter Care Teams Cell Plasterer Relationship Specialty Start Date End Date Enedina Mcguire NP [address] [place] [address] PCP - General Internal Medicine 10/05/24 Maureen Pantoja, RN Txp Post Coordinator Transplant Hepatology 10/28/24 documented as of this encounter
--- OUTSIDE RECORDS SUMMARY | 2024-12-02 08:12 | XMS_ITS | Encounter Summary ---
Author Organization [employer] ([place], [place], [place], [place]) Address [address] [place] [address] Care Team Providers Care Leaflet Or Newspaper Deliverer Name Role Phone Unavailable Primary Care Provider Unavaillia e Encounter Details Date Type Department Care Team (Late st Contact Info) Description 06/03/2018 Transcribed Document [facility] Family Medicine [address] [place] [address] ProviderEbenezer MD [address], [place] [phone] Social History Tobacco Use Types Packs/Day Years [...] - Historical ProviderMD - 06/03/2018 1:05 PM PLATING EQUIPMENT TENDER Patient: JULIEN ZELAYA Age: 33 years Sex: [...] s/p picking up a glass that shattered aircraft captain. lacerations noted with bleeding controlled . [...] EST Height Source Stated Height Entry Format [place] Height/Length, KOSOVAN (ft) 6 ft Height/Length KOS[place]AN 4 Inch CLINICALHEIGHT 193.04 cm [place] Body Weight 85.74 kg Weight Source, ED Standing scale Weight Entry Format [place] Weight Bengali lb 265 lb CLINICALWEIGHT 120.45 kg Body [...] 14:22 EST, Discharge to: Home. Prescriptions: Prescription [facility]: Keflex 500 mg oral capsule (Prescribe): [...] Electronically signed by Luis Eduardo Ochoa Conversion Mechanical Maintenance Foreman Cerner at 08/29/2022 6:34 PM CDT documented in this encounter Plan of Treatment Not on file documented as of this encounter Visit Diagnoses Not on filedocumented in this encounter
[2024-12-02 08:26] LABS: Hematocrit 31.6 % (42.0-52.0); Hemoglobin 10.2 g/dL (14.1-18.0); Immature Granulocytes % 0.8 %; Mean Corpuscular HGB Conc 32.3 g/dL (31.8-35.4); Mean Corpuscular Hemoglobin 29.8 pg (27.0-31.2); Mean Corpuscular Volume 92.4 fl (80-94); Nucleated Red Blood Cells % 0 %; Platelet Count 144 K/mm3 (142-424); Red Blood Count 3.42 M/mm3 (4.60-6.20); Red Cell Distribution Width-SD 57.3 fL; White Blood Count 6.0 K/mm3 (4.8-10.8)
[2024-12-02 09:00] LABS: Albumin Level 3.9 g/dl (3.5-5.0); Chloride 104 mmol/L (98-107)
[2024-12-02 09:01] LABS: Potassium 4.4 mmoL/L (3.5-5.1); Sodium 136 mmol/L (136-145)
[2024-12-02 09:03] LABS: Alanine Aminotransferase 16 U/L (12-78); Anion Gap 11.4 mEq/L (5-15); Aspartate Amino Transferase 15 U/L (17-59); Bilirubin,Unconjugated 0.2 mg/dL (0.0-1.1); Blood Urea Nitrogen 29 mg/dl (9-20); Carbon Dioxide 25 mmol/L (22.0-30.0); Creatinine,Serum 0.80 mg/dl (0.66-1.25); Estimated Glomerular Filt Rate 107 ml/min (>60); GFR (African American) 129 ML/MIN (>60); Phosphorous 5.6 mg/dl (2.5-4.5); Total Protein,Serum 6.0 g/dl (6.3-8.2)
[2024-12-02 09:04] LABS: Alkaline Phosphatase 109 U/L (38-126); Bilirubin,Direct 0.5 mg/dl (0.0-0.4); Bilirubin,Indirect 0.2 mg/dL (0.0-0.9); Bilirubin,Total 0.7 mg/dl (0.2-1.3); Calcium 9.6 mg/dl (8.4-10.2); Glucose 97 mg/dl (74-100); Magnesium 1.5 mg/dl (1.6-2.3)
[2024-12-02 10:00] LABS: Bilirubin,Urine Negative (Negative); Color,Urine YELLOW (Yellow); Glucose,Urine (UA) Negative (Negative); Ketones,Urine Negative (Negative); Leukocyte Esterase,Urine Negative (Negative); PH,Urine 6.0 (5.0-8.5); Protein,Urine Negative (Negative); Specific Gravity, Urine 1.010 (1.005-1.030); Urobilinogen,Urine 0.2 EU/dl (0.2)
[2024-12-02 10:24] LABS: Squamous Epithelial Cell,Urine Occasional #/hpf (0-5)
== END 2024-12-02 23:59 | disposition home or self-care (01) ==
PROVIDERS: PCP Nurse Practitioner Family; Visit Provider Surgery
DX: Z48.23 Encounter for aftercare following liver transplant (principal); Z94.4 Liver transplant status; Z79.60 Long term (current) use of unspecified immunomodulators and immunosuppressants
CPT/HCPCS: 36415; 80069; 80076; 81001; 82570; 83735; 84156; 85025; 87086

== ENCOUNTER 2024-12-04 07:42 | Outpatient (CLI) | payer OTHER, SELFPAY ==
--- OUTSIDE RECORDS SUMMARY | 2024-10-05 23:12 | XMS_ITS | Encounter Summary ---
Author Organization [facility] Address [facility] [place] [address] Care Team Providers Care Hospitalist Physician Name Role Phone Enedina Mcguire NP Primary Care Provider [phone] Source Comments This information has been disclosed [...] release of HIV test results or diagnoses. [id number] Reason for Referral * Surgical (Routine) - Pending Review Specialty Diagnoses / Procedures Referred By Shane hernadez Referred To Contact Gastroenterology Diagnoses Alcoholic cirrhosis of liver with ascites (CMS-HCC) Procedures Case request GI: EGGerri Min MD [address] [place] [address] Phone: tel: fax: Referral ID Status Reason Start Date Expiration Date V isits Requested Visits Authorized [id number] Pending Review 10/08/2024 04/06/2025 1 1 Reason for Visit * Auth/Cert (Routine) Specialty Diagnoses / Procedures Referred By Shane hernadez Referred To Contact General Internal Medicine Diagnoses [facility] [address] [place] [address] Phone: tel: Referral ID Status Reason Start Date Expiration Date Visits Re quested Visits Authorized [id number] 1 1 Encounter Details Date Type Department Care Team (Latest Contact Info) Description 10/05/2024 11:12 PM EDT - 10/17/2024 10:29 AM EDT Hospital Encounter [facility] [address] [place] [phone] Angie Blanchard MD [address] [place] [address] Fouzia Rene MD [address] [place] [address] Med/[place] [address] Chelsy Lerner MD [address] [place] [address] [place] [address] Alcoholic cirrhosis of liver with [...] Recorded In the past 12 months has [employer], gas, oil, or water [employer] threatened to shut off services in your [...] any time in the past 12 m [facility], were you homeless or living in a [place] health care facility (including now)? No 10/06/2024 Yearly Questionnaire Answer [...] of this encounter Discharge Summaries * Kandy Funetes - 10/17/2024 10:29 AM EDT Health Care [...] Home post discharge: Not Applicable Kandy BAE [facility] [phone] * William Blount MD - 10/17/2024 8:50 AM EDT [facility] Inpatient Discharge Summary Patient: Julien Gilbert Age: 39 y.o. CSN: [id number] Date of Admission: 10/05/2024 Date of Discharge: 10/17/2024 Attending Physician: Chelsy Lerner MD Primary Care Physician: Enedina Mcguire NP Diagnoses Present on Admission Past Medical History: Diagnosis Date Alcoholic cirrhosis of liver (CMS-HCC) Esophageal varices (CMS-HCC) Hepatorenal syndrome (CMS-HCC) Hypertension Other hyperlipidemia 07/26/2024 Renal cell carcinoma (CMS-HCC) Thrombocytopenia ([facility]) Thyroid disease Discharge Diagnoses Active Hospital Problems [...] Case IDs Date Procedure Surgeon Location Status [id number] 10/10/24 EGD Lino Soto MD ENDOSCOPY Comp [id number] 10/14/24 Left Heart Cath Irving Matta MD [...] at 10/08/2024 1:12 PM EDT US Duplex Pde-Cpc-Bsyjoqm Comp Final Result IMPRESSION: ABDOMEN 1. Cirrhotic [...] 90 tablet Refills: 0 naloxone 4 mg/actuation Frankford Commonly known as: NARCAN Apply 1 spray [...] Medications These medications were sent to [facility] [address] [place] [id number] Hours: Sunday - Sunday: 8:00AM - 6:00PM FLUoxetine 20 MG capsule lactulose 10 gram/15 mL solution loratadine 10 mg tablet methocarbamoL 500 MG tablet midodrine 10 MG tablet naloxone 4 mg/actuation [place] oxyCODONE 5 MG immediate release tablet Discharge [...] Order Questions: Select Supplement: Boost-1 kcal/ml supplement ([facility] only) As listed above, low sodium diet [...] AM EDT 10/17/2024 naloxone (NARCAN) 4 mg/actuation Frankford Apply 1 spray in one nostril if [...] tablet 09/09/2024 3:56 PM EDT 09/10/2024 5 FLUoxetine (PROZAC) 20 MG capsule Take 1 capsule (20 mg total) by mouth daily. 30 capsule 2 10/17/2024 10:24 AM EDT 10/17/2024 5 folic acid (FOLVITE) 1 MG tablet [...] Hughes MD - 10/17/2024 10:23 AM EDT [facility] HEPATOLOGY PROGRESS NOTE Name: Julien Gilbert CSN: [id number] Consulted by: Chelsy Lerner MD Reason for [...] Yes Past Week naloxone (NARCAN) 4 mg/actuation Frankford Apply 1 spray in one nostril if [...] nucleated cells, <2000 RBCs 10% Polynuclear, 90% Osborne nuc. There were initial reports of gram [...] of chemical dependency treatment as outpatient. - [facility] with no obstructive coronary disease - Psych eval for PTSD With recommendation of sertraline - Given his renal dysfunction, will plan to list for [facility] when he qualifies on 10/22/2024. Labs next week - Plan for d/c today Bobby Sidhu MD [employer] Please see the body of the resident, [...] remains <30 until October 22. Waiting for [facility] today. ASSESSMENT NADIYA on CKD, last discharge [...] Staff. Jeremiah Gamino PGY4 Nephrology. Pager no. [phone] Chief Complaint No chief complaint on file. [...] at 10/08/2024 1:12 PM EDT US Duplex Kbe-Lch-Uaexcza Comp Final Result IMPRESSION: ABDOMEN 1. Cirrhotic [...] no head imaging has been performed at [facility]. -CT Head w/o contrast -Imaging showed no [...] Order Questions: Select Supplement: Boost-1 kcal/ml supplement ([facility] only) Code Status: Full Code Signed: WILLIAM BLOUNT MD 10/16/2024, 2:16 PM Cosigned by Chelsy Lerner MD at 10/16/2024 5:38 PM EDT Associated attestation - Chelsy Lerner MD - 10/16/2024 5:38 PM EDT [facility] Medicine Attending Supervision Note Julien Gilbert was [...] another specialty or practice, other licensed professional (PT/OT/WINE CONSULTANT/RT), or a non-medical community professional: Hepatology, Interventional [...] due to positioning during LHC on 10/14. [place] the worst in CVR, but has improved [...] Kumar, RD - 10/16/2024 1:08 PM EDT [facility] Medical Nutrition Therapy Follow-Up Diet Order/Nutrition Support: Regular diet, Boost TID - Vanilla preference Pertinent Information: This is a 39 year old male history of ETOH cirrhosis d/b HE, ascites with SBP who is admitted for AMS. Precipitant of his HE likely SBP. Diagnostic paracentesis at OSH reportedly showed 61 nucleated cells, <2000 RBCs 10% Polynuclear, 90% Osborne nuc. There were initial reports of gram [...] Based on CBW of 119.5 kg Kcals/day: 1817-0903 (18-21 kcals/kg) Protein g/day: 119-143 (1-1.2 g/kg) [...] Kumar RD, LD Clinical Dietitian Contact via Attributor * Jerad Hughes MD - 10/16/2024 11:03 AM EDT [facility] HEPATOLOGY PROGRESS NOTE Name: Julien Gilbert CSN: [id number] Consulted by: Chelsy Lerner MD Reason for [...] nucleated cells, <2000 RBCs 10% Polynuclear, 90% Osborne nuc. There were initial reports of gram [...] of chemical dependency treatment as outpatient. - [facility] with no obstructive coronary disease - Psych eval for PTSD With recommendation of sertraline - Given his renal dysfunction, will plan to list for [facility] when he qualifies on 10/22/2024. - Will follow Bobby Sidhu MD [employer] Please see the body of the resident, [...] remains <30 until October 22. Waiting for [facility] today. ASSESSMENT NADIYA on CKD, last discharge [...] COMMENT on 10/08/2024 Iron%- Iron replete PLAN -[facility] yesterday- patient remains at risk of contrast related injury on top of exisiting NADIYA for 24-48 hrs after contrast load. -He is volume overloaded -patient needs to follow up closely with nephrology after discharge Thank you for allowing us to participate in this patient's care. Discussed with Consult Staff. Jeremiah Gamino PGY4 Nephrology. Pager no. [phone] Chief Complaint No chief complaint on file. [...] visitis Acute kidney injury superimposed on CKD ([facility]-HCC). NAEON. Pt's C yesterday without concern for severe coronary artery [...] at 10/08/2024 1:12 PM EDT US Duplex Rrj-Hmx-Etesgqn Comp Final Result IMPRESSION: ABDOMEN 1. Cirrhotic [...] no head imaging has been performed at [facility]. -CT Head w/o contrast -Imaging showed no [...] Order Questions: Select Supplement: Boost-1 kcal/ml supplement ([facility] only) Code Status: Full Code Signed: WILLIAM BLOUNT MD 10/15/2024, 10:49 AM Cosigned by Chelsy Lerner MD at 10/15/2024 2:47 PM EDT Associated attestation - Chelsy Lerner MD - 10/15/2024 2:47 PM EDT Hospital Medicine Attending Supervision Note [...] another specialty or practice, other licensed professional (PT/OT/WINE CONSULTANT/RT), or a non-medical community professional: Hepatology, Interventional [...] due to positioning during LHC on 10/14. [place] the worst in CVR, but has improved [...] Hughes MD - 10/15/2024 10:15 AM EDT [facility] HEPATOLOGY PROGRESS NOTE Name: Julien Gilbert CSN: [id number] Consulted by: Chelsy Lerner MD Reason for [...] hyperlipidemia 07/26/2024 Renal cell carcinoma (CMS-HCC) Thrombocytopenia ([facility]) Thyroid disease Past Surgical History: Procedure Laterality [...] nucleated cells, <2000 RBCs 10% Polynuclear, 90% Osborne nuc. There were initial reports of gram [...] - Will follow Bobby Sidhu MD [employer] Please see the body of the resident, [...] Quan MD - 10/14/2024 2:34 PM EDT [facility] Department of Cardiovascular Health and Diseases Cardiology Post Sedation Note Patient: Julien Gilbert Procedure(s) Performed: Left heart catheterization via right [...] remains <30 until October 22. Waiting for [facility] today. ASSESSMENT NADIYA on CKD, last discharge creatinine 2.4 Baseline Creatinine 1.2-1.3, HRS- NADIYA as no response to holding lasix and albumin UA bland Urine lytes <10/< 15/ 50 Holding lasix give [facility] today Renal Function: Recent Labs 10/14/24 0253 [...] COMMENT on 10/08/2024 Iron%- Iron replete PLAN -[facility] today -pt is volume up slightly -standing weights daily -c.w sodium bicarb tablets -discssed with the patient anad family about risk of needing HD after [facility] Thank you for allowing us to participate in this patient's care. Discussed with Consult Staff. Jeremiah Gamino PGY4 Nephrology. Pager no. [phone] Chief Complaint No chief complaint on file. [...] on CKD (CMS-HCC). No acute events overnight. Pt with chronic [...] at 10/08/2024 1:12 PM EDT US Duplex Bek-Jbu-Xbqrtfn Comp Final Result IMPRESSION: ABDOMEN 1. Cirrhotic [...] not tolerate Stress ECHO on 10/09 - [facility] today -Per GI recs, started on midodrine [...] no head imaging has been performed at [facility]. -CT Head w/o contrast -Imaging showed no [...] never required dialysis. Patient is going for [facility] today and will receive contrast, okay per [...] Order Questions: Select Supplement: Boost-1 kcal/ml supplement ([facility] only) Code Status: Full Code Signed: WILLIAM BLOUNT MD 10/14/2024, 10:26 AM Cosigned by Chelsy Lerner MD at 10/14/2024 11:53 AM EDT Associated attestation - Chelsy Lerner MD - 10/14/2024 11:53 AM EDT [facility] Medicine Attending Supervision Note Julien Gilbert was [...] another specialty or practice, other licensed professional (PT/OT/WINE CONSULTANT/RT), or a non-medical community professional: Hepatology, Interventional [...] Hughes MD - 10/14/2024 7:42 AM EDT [facility] HEPATOLOGY PROGRESS NOTE Name: Julien Gilbert CSN: [id number] Consulted by: Chelsy Lerner MD Reason for [...] nucleated cells, <2000 RBCs 10% Polynuclear, 90% Osborne nuc. There were initial reports of gram [...] eval ongoing. Transplant work up ongoing - [facility] today - Transplant nephrology following for consideration [...] - Will follow Bobby Sidhu MD [employer] Please see the body of the resident, [...] Staff. Jeremiah Gamino PGY4 Nephrology. Pager no. [phone] Chief Complaint No chief complaint on file. [...] Hughes MD - 10/13/2024 12:33 PM EDT [facility] HEPATOLOGY PROGRESS NOTE Name: Julien Gilbert CSN: [id number] Consulted by: Fouzia Rene MD Reason for [...] Alcoholic hepatitis Esophageal varices (CMS-HCC) Hepatorenal syndrome ([facility]-H[facility]) Hypertension Other hyperlipidemia 07/26/2024 Renal cell carcinoma [...] nucleated cells, <2000 RBCs 10% Polynuclear, 90% Osborne nuc. There were initial reports of gram [...] eval ongoing. Transplant work up ongoing - [facility] today - Transplant nephrology following for consideration [...] - Will follow Bobby Sidhu MD [employer] Please see the body of the resident, [...] any interval liver pathology. * Rebekah Linares, [facility] - 10/13/2024 12:30 PM EDT Start Time: [...] no psychomotor abnormalities Cognition: short term and prison memory intact Attitude: cooperative Affect: full range [...] to his home to continue counseling. * Ctilaly Fabian, RD - 10/13/2024 10:49 AM EDT [facility] Medical Nutrition Therapy Reason(s) for [...] Order Questions: Select Supplement: Boost-1 kcal/ml supplement ([facility] only) Pertinent Information: Julien Gilbert is a 39 y.o. Male admitted for Acute kidney injury superimposedon CKD (CMS-HCC) Pt noted to have waxing and waning [...] kg) Body mass index is 32.07 kg/m??. [place] Body Weight: 202 lbs (91.8 kg) +/- 10% Weight History: Wt Readings from Last 10 Encounters: 10/10/24 (!) 263 lb 8 oz (119.5 kg) 09/05/24 (!) 262 lb 9.6 oz (119.1 kg) 09/02/24 (!) 258 lb (117 kg) 08/17/24 (!) 242 lb 11.2 oz (110.1 kg) 07/28/24 (!) 245 lb (111.1 kg) Estimated Nutrition Needs: Based on CBW of 119.5 kg Kcals/day: 2801-9866 (18-21 kcals/kg) Protein g/day: 119-143 (1-1-2 g/kg) [...] Dietitian - Solid Organ Transplant Contact via [employer] Chat * Eileen Schroeder MD, PhD - [...] at 10/08/2024 1:12 PM EDT US Duplex Mxs-Nmi-Wtcdsfy Comp Final Result IMPRESSION: ABDOMEN 1. Cirrhotic [...] no head imaging has been performed at [facility]. -CT Head w/o contrast -Imaging showed no [...] Order Questions: Select Supplement: Boost-1 kcal/ml supplement ([facility] only) Code Status: Full Code Signed: EILEEN [...] I reviewed the documentation by the medical steam plant records clerk and agree as documented. Any additions or clarifications are listed below. Daily plan was discussed with patient at bedside and questions addressed. Patient ID: Julien Gilbert is a 39 y.o. male currently admitted for Acute kidney injury superimposed on CKD ([facility]) Supplemental History/ ROS: No acute events overnight [...] for Acute kidney injury superimposed on CKD ([facility]) Active Problems: NADIYA (acute kidney injury) on CKD ([facility]-H[facility]): Hepatorenal syndrome. Appreciate nephrology consult. S/p albumin X3. Baseline creatinine presumed to be around 2.5. Creatinine now seems to be fluctuating between 2.5-2.9 which may be his new baseline. We will continue to monitor. Spontaneous Bacterial Peritonitis ([facility]-HCC): Received 4 days of vancomycin, Ceftriaxone x 5d. Recent therapeutic paracentesis shows resolution. Continue Cipro prophylaxis Anemia: Multiple contributors. S/p 1 unit PRBC. Hemoglobin responded appropriately and remained stable. Will continue to monitor. Metabolic encephalopathy: Resolved. Likely related to combination of hepatic, metabolic, and possibly infectious insults. - Continue home lactulose and rifaximin Decompensated cirrhosis ([facility]-HCC): Appreciate hepatology consult. He has started his transplant evaluation and will continue while inpatient. - Continue lactulose, rifaximin, ursodiol, and midodrine - MELD labs daily - Continue home regimen with ursodiol, rifaximin and lactulose - Continue midodrine TID. - Requires therapeutic paracentesis frequently. Last on 10/10 (8L). May benefit from another prior to discharge - Stress test was non-diagnostic due to hypotension. Plan for [facility] today, but now moved to tomorrow. - [...] when medically ready. Consider d/c home after [facility] tomorrow. FOUZIA RENE MD Attending Physician Department of Internal Medicine 10/13/2024 Medical Decision Making: // LEVEL 2 MOD One chronic illness with exacerbation, progression, or side effects of treatment Discussed with physician/SAWYER from another specialty or practice, other licensed professional (PT/OT/WINE CONSULTANT/RT), or a non-medical community professional: Nephrology, Hepatology [...] kidney injury superimposed on CKD (CMS-HCC). NAEON Pt felt well this AM. A&O x [...] 3.64 / 40 \ / / \ 99 \ PT/INR/PTT - 10/12/2024 PT 25.7 [...] at 10/08/2024 1:12 PM EDT US Duplex Bwx-Lfz-Osvkemp Comp Final Result IMPRESSION: ABDOMEN 1. Cirrhotic [...] no head imaging has been performed at [facility]. -CT Head w/o contrast -Imaging showed no [...] Order Questions: Select Supplement: Boost-1 kcal/ml supplement ([facility] only) Code Status: Full Code Signed: CHARI [...] I reviewed the documentation by the medical steam plant records clerk and agree as documented. Any additions or clarifications are listed below. Daily plan was discussed with patient at bedside and questions addressed. Patient ID: Julien Gilbert is a 39 y.o. male currently admitted for Acute kidney injury superimposed on CKD ([facility]) Supplemental History/ ROS: No acute events overnight [...] was non-diagnostic due to hypotension. Plan for [facility] tomorrow. - EGD completed. - Imaging requiring [...] another specialty or practice, other licensed professional (PT/OT/WINE CONSULTANT/RT), or a non-medical community professional: Nephrology, Hepatology [...] tid. cardiac workup pre txp. pLan for [facility] Sunday Liver transplant workup per GI/ Primary [...] concern for hepatorenal syndrome.` Patient came from [facility], paracentesis was performed yesterday on 10/05? Fluid [...] appropriately Laboratory Data and Imaging Recent Labs 10/10/24 0510/11/24 0302 10/12/24 0544 WBC 5.1 4.0 3.3* HGB 7.3* 7.7* 7.2* HCT 20.6* 21.2* 19.7* MCV 101.2* 100.5* 101.2* PLT 39* 32* 30* Recent Labs 10/10/24 0510/11/24 0302 10/12/24 0544 NA 135 134 135 [...] 706.9 (H) 10/08/2024 No results found for: [id number] , FOLATE Lab Results Component Value Date [...] CRUR No results found for: MICROALBUR , [id number] In addition to the above an extensive [...] 4.6 10/12/2024 Lab Results Component Value Date [id number] 7.1 (L) 10/08/2024 PLAN Monitor renal panel [...] AM Colten Huertas MD, KISHOR LIN FNKF public health dentist Div. of Nephrology [facility] E-mail: [email or web address] This note was completely edited, written and [...] Rene MD Interval hx No issues. Pending [facility]. Assessment: Renal Function: Cr: 2.77 Bun: 49 [...] concern for hepatorenal syndrome.` Patient came from [facility], paracentesis was performed yesterday on 10/05? Fluid [...] 706.9 (H) 10/08/2024 No results found for: [id number] , FOLATE Lab Results Component Value Date COLORU Yellow 10/06/2024 CLARITYU Clear 10/06/2024 PROTEINUA Negative 10/06/2024 PHUR 6.0 10/06/2024 LABSPEC 1.014 10/06/2024 GLUCOSEU Negative 10/06/2024 BLOODU Negative 10/06/2024 LEUKOCYTESUR Negative 10/06/2024 NITRITE Negative 10/06/2024 BILIRUBINUR Negative 10/06/2024 UROBILINOGEN <2.0 10/06/2024 RBCUA 1 09/03/2024 WBCUA 1 09/03/2024 BACTERIA Occasional (A) 09/03/2024 No results for input(s): NAPEDRO , ISAAC , CLPEDRO in the last 72 hours. Invalid input(s): CO2UR , CRUR No results found for: MICROALBUR , [id number] In addition to the above an extensive [...] 3.5 10/11/2024 Lab Results Component Value Date [id number] 7.1 (L) 10/08/2024 PLAN Monitor renal panel [...] at 10/11/2024 3:02 AM Colten Huertas MD, KISHOR LIN, FNDeclanF public health dentist Div. of Nephrology [facility] E-mail: [email or web address] This note was completely edited, written and [...] is Acute kidney injury superimposed on CKD ([facility]). NAEON Pt felt much better today. A&O [...] / \ 3.85 / 39 \ / / \ PT/INR/PTT - 10/11/2024 PT 26.8 [...] at 10/08/2024 1:12 PM EDT US Duplex Hzr-Zwv-Yozgbmo Comp Final Result IMPRESSION: ABDOMEN 1. Cirrhotic [...] from outside facility. Will engage with them daily([phone]. Ask to speak to a tech) about [...] no head imaging has been performed at [facility]. -CT Head w/o contrast -Imaging showed no [...] Order Questions: Select Supplement: Boost-1 kcal/ml supplement ([facility] only) Code Status: Full Code Signed: CHARI [...] I reviewed the documentation by the medical steam plant records clerk and agree as documented. Any additions or clarifications are listed below. Daily plan was discussed with patient at bedside and questions addressed. Patient ID: Julien Gilbert is a 39 y.o. 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 Not a candidate for terlipressin per [...] Ignacio Queen MD Renal Fellow Pager # [phone] Chief Complaint No chief complaint on file. [...] concern for hepatorenal syndrome.` Patient came from [facility], paracentesis was performed yesterday on 10/05? Fluid [...] PHOS -- < > 3.5 3.4 3.3 IUDP30A 7.1* -- -- -- -- < > = values in this interval not displayed. Lab Results Component Value Date IRON 81 10/08/2024 TIBC SEE COMMENT 10/08/2024 FERRITIN 706.9 (H) 10/08/2024 No results found for: [id number] , FOLATE Lab Results Component Value Date [...] CRUR No results found for: MICROALBUR , [id number] In addition to the above an extensive [...] Manic Cosigned by Colten Huertas MD at 10/10/2024 2:33 PM EDT Associated [...] 3.3 10/10/2024 Lab Results Component Value Date [id number] 7.1 (L) 10/08/2024 PLAN Continue IV albumin [...] 10/10/2024 5:23 AM Colten Huertas MD, KISHOR LIN, CATHYF public health dentist Div. of Nephrology [facility] E-mail: [email or web address] This note was completely edited, written and [...] to follow pt while pt is at [facility]. * Jodi Ortiz PharmD - 10/10/2024 10:27 AM EDT Clinical Pharmacy Service: Vancomycin Consult Progress Note Patient has been transitioned off of vancomycin therapy per team notes and orders. Pharmacy will sign-off at this time, please do not hesitate to consult again as needs arise. Thank you for involving pharmacy in the care of this patient. Jodi Ortiz PharmD Clinical Director [employer], Internal Medicine Preferred contact: [facility] [employer] [facility] [employer] Pager: [phone] October 10, 2024 10:27 AM Laboratory Data [...] 10/07/2024 10:50 PM Giardia Cryptosporidium Antigens Final [id number] 10/07/2024 10:50 PM Ova and Parasite Comprehensive w/ Giardia/Crypto Final [id number] Feces 10/06/2024 1:04 AM #2 Blood culture-Peripheral site 2 Preliminary [id number] Peripheral 10/06/2024 1:04 AM #1 Blood culture-Peripheral site 1 Preliminary [id number] Peripheral Pharmacokinetics Lab Results (Last 7 days) Today 0523 Yesterday 0459 10/08 0536 Vanc Rdm 16.4 11.0 16.0 * Gerri Peterson MD - 10/10/2024 10:09 AM EDT [facility] HEPATOLOGY PROGRESS NOTE Name: Julien Gilbert CSN: [id number] Consulted by: Fouzia Rene MD Reason for [...] nucleated cells, <2000 RBCs 10% Polynuclear, 90% Osborne nuc. Per OSH reports, ascitic fluid cultures [...] to achieving target HR. -cardiology consult for C on Sunday - Transplant nephrology following for [...] MD GI and Hepatology Staff * Jodi Ortiz PharmD - 10/10/2024 9:13 AM EDT Images from the original note were not included. [facility] Clinical Pharmacy Service: Vancomycin Monitoring Consult [...] in sodium chloride 0.9 % 250 mL Qozc5Biy (Completed) 1,500 mg Once 10/09/2024 10/09/2024 Admin Instructions: Contact pharmacy if there is a question/concern of whether vancomycin should begiven based on serum drug levels. Use Sjwn5Gje Adapter - Mix Thoroughly Before Administration Route: Intravenous vancomycin (VANCOCIN) 1,500 mg in sodium chloride 0.9 % 250 mL Asic5Xli 1,500 mg Once 10/10/2024 10/11/2024 Admin Instructions: Contact pharmacy if there is a question/concern of whether vancomycin should begiven based on serum drug levels. Use Uwyy1Jyb Adapter - Mix Thoroughly Before Administration Route: [...] in sodium chloride 0.9 % 250 mL Ormg0Lwe 1,500 mg 166.7 mL/hr 10/08/24 1259 New Bag vancomycin (VANCOCIN) 1,000 mg in sodium chloride 0.9 % 250 mL Ablo3Eue 1,000 mg 250 mL/hr --Objective Data-- Vitals: 10/10/24 0248 10/10/24 0654 10/10/24 0720 10/10/24 0850 BP: 107/62 102/55 Pulse: 94 98 93 Resp: 18 16 Temp: 98 ??F (36.7 ??C) TempSrc: Oral SpO2: 100% 100% 99% Weight: (!) 263 lb 8 oz (119.5 kg) No intake/output data recorded. WBC, BUN, Creatinine (Last 7 days) Today 05 Yesterday 1305 Yesterday 0814 WBC 5.1 -- -- BUN 53 53 54 Creatinine 2.85 2.89 3.04 [place] body weight: 86.8 kg (191 lb 5.7 oz) Adjusted ideal body weight: 99.9 kg (220 lb 3.5 oz) Estimated CrCl: ~35-45 mL/min --Cultures-- Microbiology Results Date and Time Order Name Sensitivity Status Organisms Specimen ID Source 10/07/2024 10:50 PM Giardia Cryptosporidium Antigens Final [id number] 10/07/2024 10:50 PM Ova and Parasite Comprehensive w/ Giardia/Crypto Final [id number] Feces 10/06/2024 1:04 AM #2 Blood culture-Peripheral site 2 Preliminary [id number] Peripheral 10/06/2024 1:04 AM #1 Blood culture-Peripheral site 1 Preliminary [id number] Peripheral --Vancomycin Concentrations-- Lab Results (Last 7 [...] for the consult. Jodi Ortiz, PharmD Clinical Director Smb Sales, Internal Medicine Preferred contact: [employer] [facility] Zjjxofa-Qi-Bslc Pager: [phone] October 10, 2024 9:13 AM * Eileen Schroeder MD, PhD - 10/10/2024 8:17 AM EDT Department of Internal Medicine Daily Progress Note Chief Complaint / Reason for Follow-Up Julien Gilbert is a 39 y.o. male on hospital day 5. The principal reason for today's follow up visit is Acute kidney injury superimposed on CKD ([facility]). KARENEMERLINE Pt was very conversational today. A&O [...] at 10/08/2024 1:12 PM EDT US Duplex Mmf-Wer-Vggemmf Comp Final Result IMPRESSION: ABDOMEN 1. Cirrhotic [...] from outside facility. Will engage with them daily([phone]. Ask to speak to a tech) about [...] no head imaging has been performed at [facility]. -CT Head w/o contrast -Imaging showed no [...] Order Questions: Select Supplement: Boost-1 kcal/ml supplement ([facility] only) Code Status: Full Code Signed: EILEEN [...] I reviewed the documentation by the medical steam plant records clerk and agree as documented. Any additions or clarifications are listed below. Daily plan was discussed with patient at bedside and questions addressed. Patient ID: Julien Gilbert is a 39 y.o. male currently admitted for Acute kidney injury superimposed on CKD ([facility]) Supplemental History/ ROS: No acute events overnight [...] (CMS-HCC) Active Problems: Spontaneous Bacterial Peritonitis (CMS-HCC): Cultures from OSH were reported as growing [...] IR. 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 Considering para today, cardiac workup pre txp Liver transplant workup per GI/ Primary team, considering for SLK, seen by renal transplant team Thank you for allowing us to participate in this patient's care. Discussed with Consult Staff. Ignacio Queen MD Renal Fellow Pager # [phone] Chief Complaint No chief complaint on file. [...] concern for hepatorenal syndrome.` Patient came from [facility], paracentesis was performed yesterday on 10/05? Fluid [...] 9.0 9.3 PHOS -- 3.5 3.5 3.4 BJPA30N 7.1* -- -- -- Lab Results Component Value Date IRON 81 10/08/2024 TIBC SEE COMMENT 10/08/2024 FERRITIN 706.9 (H) 10/08/2024 No results found for: NZHODQAQ24 , FOLATE Lab Results Component Value Date [...] CRUR No results found for: MICROALBUR , BUPV50GRL In addition to the above an extensive [...] 3.4 10/09/2024 Lab Results Component Value Date NLUI32Y 7.1 (L) 10/08/2024 PLAN Continue IV albumin [...] PM Colten Huertas MD, KISHOR LIN FNKF public health dentist Div. of Nephrology [facility] E-mail: [email or web address] This note was completely edited, written and [...] Peterson MD - 10/09/2024 1:07 PM EDT [facility] HEPATOLOGY PROGRESS NOTE Name: Julien Gilbert CSN: [id number] Consulted by: Fouzia Rene MD Reason for [...] nucleated cells, <2000 RBCs 10% Polynuclear, 90% Osborne nuc. Fluid cultures reportedly grew gram + [...] from the original note were not included. [facility] Clinical Pharmacy Service: Vancomycin Monitoring Consult [...] in sodium chloride 0.9 % 250 mL Zppt1Qit (Completed) 1,000 mg Once 10/08/2024 10/08/2024 Admin Instructions: Contact pharmacy if there is a question/concern of whether vancomycin should begiven based on serum drug levels. Use Blbl3Rxx Adapter - Mix Thoroughly Before Administration Route: Intravenous vancomycin (VANCOCIN) 1,500 mg in sodium chloride 0.9 % 250 mL Upie8Cfi 1,500 mg Once 10/09/2024 10/10/2024 Admin Instructions: Contact pharmacy if there is a question/concern of whether vancomycin should begiven based on serum drug levels. Use Bkdn9Lws Adapter - Mix Thoroughly Before Administration Route: [...] in sodium chloride 0.9 % 250 mL Djho8Yif 1,000 mg 250 mL/hr 10/06/24 1413 New [...] 10/07/2024 10:50 PM Giardia Cryptosporidium Antigens Final [id number] 10/07/2024 10:50 PM Ova and Parasite Comprehensive w/ Giardia/Crypto Final [id number] Feces 10/06/2024 1:04 AM #2 Blood culture-Peripheral site 2 Preliminary [id number] Peripheral 10/06/2024 1:04 AM #1 Blood culture-Peripheral site 1 Preliminary [id number] Peripheral --Vancomycin Concentrations-- Lab Results (Last 7 [...] for the consult. Jodi Ortiz PharmD Clinical Director Smb Sales, Internal Medicine Preferred contact: [employer] [facility] Zchbwkm-Fc-Awir Pager: [phone] October 09, 2024 8:29 AM * Eileen [...] at 10/08/2024 1:12 PM EDT US Duplex Sgl-Xpf-Bngnfsq Comp Final Result IMPRESSION: ABDOMEN 1. Cirrhotic [...] from outside facility. Will engage with them daily([phone]. Ask to speak to a tech) about [...] no head imaging has been performed at [facility]. -CT Head w/o contrast -Imaging showed no [...] Order Questions: Select Supplement: Boost-1 kcal/ml supplement ([facility] only) Code Status: Full Code Signed: EILEEN [...] I reviewed the documentation by the medical steam plant records clerk and agree as documented. Any additions or clarifications are listed below. Daily plan was discussed with patient at bedside and questions addressed. Patient ID: Julien Gilbert is a 39 y.o. male currently admitted for Acute kidney injury superimposed on CKD ([facility]) Supplemental History/ ROS: No acute events overnight [...] for Acute kidney injury superimposed on CKD ([facility]) Active Problems: Anemia: S/p 1 unit PRBC from yesterday. Hemoglobin responded appropriately and remained stable. Will continue to monitor. Metabolic encephalopathy: Mostly resolved. Likely related to combination of hepatic, metabolic, andpossibly infectious insults. - Continue home lactulose and rifaximin Spontaneous Bacterial Peritonitis ([facility]): Cultures from OSH are growing gram- positive organisms.We continue to await speciation. He remains afebrile and vital signs have been stable. - Continue vancomycin and ceftriaxone for now. - Will follow-up on speciation and sensitivities. Decompensated cirrhosis ([facility]): Appreciate hepatology consult. He has started his [...] another specialty or practice, other licensed professional (PT/OT/WINE CONSULTANT/RT), or a non-medical community professional: Nephrology, Hepatology Labs reviewed (1 pt each): CBC, CMP, INR & other daily labs Review of notes from a different specialty or different practice: Nephrology, Anesthesiology hepatology, * Gerri Peterson MD - 10/08/2024 1:40 PM EDT [facility] HEPATOLOGY PROGRESS NOTE Name: Julien Gilbert CSN: [id number] Consulted by: Fouzia Rene MD Reason for [...] nucleated cells, <2000 RBCs 10% Polynuclear, 90% Osborne nuc. Fluid cultures reportedly grew gram + [...] disease (ESRD) patient in a hospital based, [facility] based, or home setting. -At the time [...] I have discussed this plan with the spa coordinator and the liver transplant team. Cosigned [...] from the original note were not included. [facility] Clinical Pharmacy Service: Vancomycin Monitoring Consult [...] in sodium chloride 0.9 % 250 mL Pudz4Loj 1,000 mg Once 10/08/2024 10/09/2024 Admin Instructions: Contact pharmacy if there is a question/concern of whether vancomycin should begiven based on serum drug levels. Use Cxbs7Ahh Adapter - Mix Thoroughly Before Administration Route: [...] mg 200 mL/hr --Objective Data-- Vitals: 10/07/24 2020 10/07/24 2135 10/07/24 2334 10/08/24 0728 BP: 107/57 [...] 10/07/2024 10:50 PM Giardia Cryptosporidium Antigens Final [id number] 10/07/2024 10:50 PM Ova and Parasite Comprehensive w/ Giardia/Crypto In process [id number] Feces 10/06/2024 1:04 AM #2 Blood culture-Peripheral site 2 Preliminary [id number] Peripheral 10/06/2024 1:04 AM #1 Blood culture-Peripheral site 1 Preliminary [id number] Peripheral --Vancomycin Concentrations-- Lab Results (Last 7 [...] for the consult. Jodi Ortiz PharmD Clinical Director Smb Sales, Internal Medicine Preferred contact: [employer] [facility] Xunnldv-Eg-Hirc Pager: [phone] October 08, 2024 9:13 AM * Eileen [...] FREET4 0.74 09/03/2024 Diagnostic Studies US Duplex Eia-Gil-Djrtjwi Comp Final Result IMPRESSION: ABDOMEN 1. Cirrhotic [...] no head imaging has been performed at [facility]. -CT Head w/o contrast -Imaging showed no [...] Order Questions: Select Supplement: Boost-1 kcal/ml supplement ([facility] only) Code Status: Full Code Signed: EILEEN [...] I reviewed the documentation by the medical steam plant records clerk and agree as documented. Any additions or [...] home lactulose and rifaximin Spontaneous Bacterial Peritonitis ([facility]): Cultures from OSH are growing gram- positive organisms.We continue to await speciation. He remains afebrile and vital signs have been stable. - Continue vancomycin and ceftriaxone for now. - Will follow-up on speciation and sensitivities. Decompensated cirrhosis ([facility]): Appreciate hepatology consult. He has started his [...] tomorrow NADIYA (acute kidney injury) on CKD ([facility]): Appreciate nephrology consult. Likely has hepatorenal syndrome. 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 Discussed with Consult Staff. Ignacio Queen MD Renal Fellow Pager # [phone] Chief Complaint No chief complaint on file. [...] concern for hepatorenal syndrome.` Patient came from [facility], paracentesis was performed yesterday on 10/05? Fluid pending for SBP analysis Histories he has a past medical history of Alcoholic cirrhosis of liver (CMS-HCC), Alcoholic hepatitis, Esophageal varices ([facility]), Hepatorenal syndrome ([facility]), Hypertension, Other hyperlipidemia (07/26/2024), Renal cell [...] TIBC , FERRITIN No results found for: MMOBWIGP78 , FOLATE Lab Results Component Value Date [...] <15 No results found for: MICROALBUR , [id number] In addition to the above an extensive [...] 4.0 10/08/2024 Lab Results Component Value Date YFWM35N 7.1 (L) 10/08/2024 PLAN Continue IV albumin [...] AM Colten Huertas MD, KISHOR LIN FNKF public health dentist Div. of Nephrology [facility] E-mail: [email or web address] This note was completely edited, written and [...] patient which was performed on 10/08/2024 * Jodi Ortiz PharmD - 10/07/2024 5:01 PM EDT Images from the original note were not included. [facility] Clinical Pharmacy Service: Vancomycin Monitoring Consult Julien Gilbert is a 39 y.o. male currently being treated empirically for Abdominal/Pelvic Infection Patient is allergic to adhesive and duloxetine. Pharmacy consulted for vancomycin management by Kinsey Umanozr. Current Anti-Infectives Dose Frequency Start End cefTRIAXone [...] AM #2 Blood culture-Peripheral site 2 Preliminary [id number] Peripheral 10/06/2024 1:04 AM #1 Blood culture-Peripheral site 1 Preliminary [id number] Peripheral --Vancomycin Concentrations-- Lab Results (Last 7 [...] for the consult. Jodi Ortiz PharmD Clinical Director Smb Sales, Internal Medicine Preferred contact: [employer] [facility] Lhegihf-Ra-Emnh Pager: [phone] October 07, 2024 5:01 PM * Yamile Paige, PT - 10/07/2024 11:45 AM EDT Physical Therapy Initial Assessment and Discharge Name: Julien Gilbert : 1985 Attending Physician: Fouzia Rene MD Admission Diagnosis: AMS Date: 10/07/2024 [facility] Pertinent hospital course: Yes Hospital Course [...] Peterson MD - 10/07/2024 11:33 AM EDT [facility] HEPATOLOGY PROGRESS NOTE Name: Julien Gilbert CSN: [id number] Consulted by: Fouzia Rene MD Reason for [...] nucleated cells, <2000 RBCs 10% Polynuclear, 90% Osborne nuc. Fluid cultures reportedly grewgram + rods. [...] liver selection meeting and clearance by social service coordinator. 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 Discussed with Consult Staff. Ignacio Queen MD Renal Fellow Pager # [phone] Chief Complaint No chief complaint on file. [...] concern for hepatorenal syndrome.` Patient came from [facility], paracentesis was performed yesterday on 10/05? Fluid [...] TIBC , FERRITIN No results found for: ALUMBJGP10 , FOLATE Lab Results Component Value Date [...] <15 No results found for: MICROALBUR , [id number] In addition to the above an extensive [...] PHOS 4.2 10/07/2024 No results found for: KFZL38P PLAN Continue IV albumin Monitor renal panel [...] 10/07/2024 6:00 AM Colten Huertas MD, KISHOR LIN, FNDeclanF public health dentist Div. of Nephrology [facility] E-mail: [email or web address] * Carmen Bernal OT - 10/07/2024 11:09 [...] today's follow up visit is Metabolic encephalopathy. KARENEMERLINE Pt fully conversational today. A&O x 3. [...] at 10/06/2024 2:33 AM EDT US Duplex Gfv-Ekk-Glolywl Comp (Results Pending) US Abdomen Complete (Results [...] no head imaging has been performed at [facility]. -CT Head w/o contrast -Imaging showed no [...] Order Questions: Select Supplement: Boost-1 kcal/ml supplement ([facility] only) Code Status: Full Code Signed: EILEEN [...] I reviewed the documentation by the medical steam plant records clerk and agree as documented. Any additions or [...] and mental status is improving. Decompensated cirrhosis ([facility]): Appreciate hepatology consult. He has started his transplant evaluation as an outpatient. We will follow-up with hepatology to discuss any inpatient testing that may need to be needed. - MELD labs daily - Continue home regimen with ursodiol, rifaximin and lactulose NADIYA (acute kidney injury) ([facility]): Appreciate nephrology consult. Likely has hepatorenal syndrome. [...] needed for pain. Continue to monitor. Thrombocytopenia ([facility]) Renal mass, left CKD (chronic kidney disease) stage 4, GFR 15-29 ml/min ([facility]) Metabolic acidosis with normal anion gap and [...] another specialty or practice, other licensed professional (PT/OT/WINE CONSULTANT/RT), or a non-medical community professional: Nephrology, Hepatology Labs reviewed (1 pt each): CMP, CBC Test results reviewed (1 pt each): CXR, Head CT Review of notes from a different specialty or different practice: Nephrology, hepatology Use of parenteral controlled substances * Kiet Gardiner, PharmD - 10/06/2024 1:07 PM EDT Images from the original note were not included. [facility] Clinical Pharmacy Service: Vancomycin Monitoring Consult Julien Gilbert is a 39 y.o. male currently being treated empirically for Abdominal/Pelvic Infection Patient is allergic to adhesive and duloxetine. Pharmacy consulted for vancomycin management by Kinsey Umanzor. Current Anti-Infectives Dose Frequency Start End [...] Pulse: 98 95 95 101 Resp: 16 19 Temp: 97.6 ??F (36.4 ??C) 97.4 [...] AM #2 Blood culture-Peripheral site 2 Preliminary [id number] Peripheral 10/06/2024 1:04 AM #1 Blood culture-Peripheral site 1 Preliminary [id number] Peripheral --Vancomycin Concentrations-- Lab Results (Last 7 [...] US Retroperitoneal complete (Results Pending) US Duplex Yxc-Isj-Ntcknxs Comp (Results Pending) CT Head WO contrast [...] PM EDT Hospital Medicine Attending Supervision Note [facility] // [facility] Julien Gilbert was seen 10/06/24 on rounds [...] Lerner MD - 10/05/2024 2:42 PM EDT [facility] Department of Medicine TRANSFER CALL NOTE Location [facility] ED History of Present Illness Julien Gilbert [...] nearest ED, with plan to transfer to [facility] if needing admission. In the ED, pt [...] Studies: Na 129 K 4.2 Cl 101 Pchjkn69 BUN 62 (up from baseline) Cr 3.6 [...] Quan MD - 10/14/2024 1:10 PM EDT [facility] PRE-[facility] ASSESSMENT, HISTORY & PHYSICAL Date: [...] Neuro: AOx3 AUC For Cath Indication(s) for Microfilmer Visit: Visit Indicators: Suspected CAD 2. Chest Pain Symptom Assessment: Asymptomatic 3. Heart Failure: Yes Class II 4. [facility] Clinical Frailty Scale: Mildly Frail Sedation Plan: Moderate Sedation with Local Anesthesia Antibiotic prophylaxis is not indicated. Mani Quan Interventional Sealer Sander Pager: [phone] [1] Patient Active Problem List Diagnosis Decompensated [...] Peterson MD - 10/10/2024 10:05 AM EDT [facility] ASSESSMENT, HISTORY & PHYSICAL Date: [...] Resource Strain: Low Risk (07/09/2024) Received from [facility] Overall Financial Resource Strain (CARDIA) Difficulty of [...] No Physical Activity: Unknown (07/14/2024) Received from [facility] Exercise Vital Sign Days of Exercise per Week: Patient unable to answer Minutes of Exercise per Session: Not on file Stress: Patient Unable To Answer (07/14/2024) Received from [facility] [employer] - Occupational Stress Questionnaire Feeling of Stress : Patient unable to answer Social Connections: Patient Unable To Answer (07/14/2024) Received from [facility] Social Connection and Isolation Panel [NHANES] Frequency of Communication with Friends and Family: Patient unable to answer Frequency of Social Gatherings with Friends and Family: Patient unable to answer Attends Mandaeism Services: Patient unable to answer Active Member [...] folic acid 1 mg Daily 0900 Bisi Akana maría, DO 1 mg at 10/09/24 0801 heparin 5,000 Units 3 times per day Bisi Hernandez, DO 5,000 Units at 10/09/24 1306 lactulose 20 g TID Bisi Hernandezella, DO 20 g at 10/09/24 1305 levothyroxine 75 mcg QAM Bisi Hernandez, DO 75 mcg at 10/09/24 0801 methocarbamoL [...] at 10/09/24 1418 pantoprazole 40 mg QAM AC Bisi Hernandezella, DO 40 mg at 10/09/24 0802 potassium chloride ER 40 mEq Once Chari Vanegas MD rifAXIMin 550 mg BID Bisi Akana maría, DO 550 mg at 10/09/24 0802 sodium bicarbonate 1,300 mg TID Bisi Hernandezella, DO 1,300 mg at 10/09/24 1305 sodium chloride 0.9 % 250 mL Once Tonya Henriquez MD thiamine HCl 100 mg Daily 0900 Bisi Hernandez, DO 100 mg at 10/09/24 0801 ursodioL 300 mg BID Bisi Hernandez, DO 300 mg at 10/09/24 0801 vancomycin intermittent/pulse dosing PLACEHOLDER ORDER LUCIANO Blanchard MD zinc sulfate 220 mg Daily 0900 Bisi Hernandez, DO 220 mg at 10/09/24 0802 Allergies: [...] values in this interval not displayed. Imaging: @[id number]@ I have personally reviewed the imaging and have noted the following: Large recanalized umbilical vein Perihilar varices Replaced right hepatic artery Splenomegaly Spontaneous splenorenal shunt Large volume ascites, No portal vein thrombosis Assessment/Plan: A 39 y.o. male with ETOH decompensated by ascites, hepatic encephalopathy,bleeding esophageal Varices. Use and allocation of SCD, WIND TURBINE BLADE REPAIR TECHNICIAN, DCD and LDLT allografts discussed in detail. [...] from surgery (5%). I also explained the keno terminal operator risks of transplantation and immunosuppression including viral infection and cancer both solid organand lymphoma. Kemar Sahni MD, Fellow, Multiorgan Abdominal Transplant Surgery. [facility]. 10/09/2024 3:16 PM [1] Allergies [...] Ortiz MD - 10/06/2024 12:00 AM EDT [facility] Internal Medicine - History and [...] for him to report. Pt arrived with [employer] folder of paperwork from OSH and a disk that was taken to Radiology overnight for imaging upload. [facility] performed a bedside paracentesis and sent studies for SBP analysis. Willcontact [facility] to see if labs have resulted. Review of Systems 14 pt ROS conducted and negative aside from that mentioned in above HPI Past Medical and Social History Lives in [place], [place] at bedside Notes that the patient [...] OSH Repeat labs pending on admission to [facility] Assessment & Plan Julien Gilbert is a [...] lytes - Albumin challenge tonight given his NADYIA in setting of hepatic disease - Continue [...] AM EDT Hospital Medicine Attending Supervision Note [facility] [facility] Julien Gilbert was seen 10/06/24 on rounds [...] confusion and lethargy. HE was seen at [facility] ED were CT head unremarkable and RUQ with gallstones, abdominal ascites diagnostic para done and started on empiric CTX. Labs remarkable at OSH for K 4.2 Cl 101 [id number] BUN 62 (up from baseline) Cr 3.6 [...] another specialty or practice, other licensed professional (PT/OT/WINE CONSULTANT/RT), or a non-medical community professional: ed team [...] Medicine Department of Internal Medicine Pager ID: [phone] 6:04 AM, 10/06/2024 documented in this encounter [...] CNP Vascular & Interventional Radiology 10/10/2024,1:55 PM [facility]: [phone]) * Lino Soto MD - 10/10/2024 12:06 PM EDT EGD Brief Op Note Julien Gilbert 10/05/2024 - 10/10/2024 Pre-op Diagnosis: Alcoholic cirrhosis of liver with ascites (CMS-HCC) [K70.31] Post-op Diagnosis: Portal gastropathy, Medium size, non-bleeding esophageal varices Procedure(s): EGD Surgeon(s): Lino Soto MD Anesthesia: MAC (Monitor Anesthesia Care) Staff: Fellow: Gerri Peterson MD Endoscopy Nurse: Kandice Castaneda RN Transportation Department Head: Diana Kemp Estimated Blood Loss: Minimal Specimens: Drains: There were no complications unless listed below. LINO SOTO MD Date: 10/10/2024 Time: 12:18 PM * Lino Soto MD - 10/10/2024 11:48 AM EDT [id number] Procedure Date: 10/10/2024 11:48 AM Patient Name: Julien Gilbert Date of : 1985 Admit Type: Inpatient Age: 39 Gender: Male Note Status: Finalized Attending MD: Lino Soto MD, [id number] Procedure: Upper GI endoscopy Indications: Gastroesopahgeal variceal [...] verified by the physician, the nurse, the pharmacy services director and the hot cell technician in the pre-procedure area in the [...] to hypotension Procedure Code(s): --- Professional --- 29087, GC, Esophagogastroduodenoscopy, flexible, transoral; diagnostic, including collection of specimen(s) by brushing or washing, when performed (separate procedure) Diagnosis Code(s): --- Professional --- I85.00, Esophageal 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 All rights reserved. The codes documented in this report are preliminary and upon continuity writer review may be revised to meet current [...] In: 12:10:16 PM Scope Out: 12:17:[address] [place] [address], [facility] * Gill Le RN - 10/09/2024 4:00 [...] this time. Selena Mosher, Psych Consult Pager: [phone] Patient seen, plan discussed and agreed upon with attending Dr. Morales HPI: Julien Gilbert is a 39 y.o. 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 Describes significant anxiety that occasionally limits his ability to drive, and stated he has to hook puller occasionally to collect himself, thought denied [...] need for sleep. Has not been on [employer] for mental health since stopping the cymbalta. [...] mother is and his father resides in [place]. Patient earned a graduate degree and never served in the . 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 He was raised Hindu and denied current engagement in any community [...] or other abnormalities Cognition/Memory: short term and keno terminal operator memory intact. Attention and concentration: is not [...] from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 EDT [facility] RDW 17.7(H) 11.0 - 15.0 % 10/16/2024 8:00 AM EDT [facility] Platelets 43(L) 140 - 400 10E3/uL 10/16/2024 8:00 AM EDT [facility] Comment: Specimen checked for clots. None detected. Slide Reviewed for PLT Clumps. None Seen. Platelet Estimate Decreased 10/16/2024 8:00 AM EDT [facility] MPV 8.6 7.5 - 11.5 fL 10/16/2024 8:00 AM EDT [facility] Whole Blood 10/16/2024 6:31 AM EDT 10/16/2024 6:57 AM EDT Narrative [facility] - 10/16/2024 8:00 AM EDT Peripheral blood smear was scanned per review criteria approved by the laboratory medical records clerk. us Eileen Schroeder MD, PhD LAB BLOOD ORDERABLES Final Result [facility] [address] [place] [address], [facility] * CARISA Rhythm Strip - Scan (10/15/2024 8:02 PM EDT) us Scanning Uchhim SCAN DOCS - NO RESULTS Final Res ult * CARISA Rhythm Strip - Scan (10/15/2024 8:02 PM EDT) us Scanning Uchhim SCAN DOCS - NO RESULTS Final Res ult * Prepare Platelets, leukoreduced, 1 Units (10/15/2024 6:16 AM EDT) Product Code U1854L81 [facility] Unit Number [id number] [facility] Dispense Status Presumed Transfused_PT [facility] Blood Expiration Date [facility] Coding System [id number] [facility] Blood Bank Product us Eleazar Nguyễn MD BLOOD BANK PRODUCT ORDE LILIA Final Result [facility] * Prepare Fresh Frozen Plasma, 1 Units (10/15/2024 6:15 AM EDT) Product Code W4523L91 [facility] Unit Number [id number] [facility] Dispense Status Presumed Transfused_PT [facility] Blood Expiration Date [facility] Coding System [id number] [facility] Blood Bank Product us Eleazra Nguyễn MD BLOOD BANK PRODUCT ORDE LILIA Final Result [facility] * (ABNORMAL) Protime-INR (10/15/2024 6:08 AM EDT) Protime 21.6(H) 12.1 - 15.1 seconds 10/15/2024 6:36 AM EDT [facility] INR 1.8(H) 0.9 - 1.1 10/15/2024 6:36 AM EDT [facility] Comment: RECOMMENDED THERAPEUTIC RANGES USING INR : Stable oral anticoagulant therapy: 2.0 - 3.0 Mechanical prosthetic heart valve: 2.5 - 3.5 Recurrent acute myocardial infarction: 2.5 - 3.5 Plasma 10/15/2024 6:08 AM EDT 10/15/2024 6:17 AM EDT us Eileen Schroeder MD, PhD LAB BLOOD ORDERABLES Final Result Performing Organization Address City/[facility]/ZIP Co de Phone Number [facility] [address] * (ABNORMAL) Hepatic Function Panel (10/15/2024 6:08 AM EDT) Total Bilirubin 7.1(H) 0.0 - 1.5 mg/dL 10/15/2024 6:45 AM EDT [facility] Bilirubin, Direct 3.77(H) 0.00 - 0.40 mg/dL 10/15/2024 6:45 AM EDT [facility] AST 39 13 - 39 U/L 10/15/2024 6:45 AM EDT [facility] ALT 22 7 - 52 U/L 10/15/2024 6:45 AM EDT [facility] Alkaline Phosphatase 115 36 - 125 U/L 10/15/2024 6:45 AM EDT [facility] Total Protein 4.8(L) 6.4 - 8.9 g/dL 10/15/2024 6:45 AM EDT [facility] Albumin 3.2(L) 3.5 - 5.7 g/dL 10/15/2024 6:45 AM EDT [facility] Bilirubin, Indirect 3.33(H) 0.00 - 1.10 mg/dL 10/15/2024 6:45 AM EDT [facility] Plasma 10/15/2024 6:08 AM EDT 10/15/2024 6:17 AM EDT Eileen Schroeder MD, PhD LAB BLOOD ORDERABLES Final Result Performing Organization Address [facility] Co de Phone Number [facility] [address] * Magnesium (10/15/2024 6:08 AM EDT) Magnesium 1.8 1.5 - 2.5 mg/dL 10/15/2024 6:45 AM EDT [facility] Plasma 10/15/2024 6:08 AM EDT 10/15/2024 6:17 AM EDT Eileen Schroeder MD, PhD LAB BLOOD ORDERABLES Final Result Performing Organization Address [facility] de Phone Number [facility] [address] * (ABNORMAL) Renal Function Panel w/EGFR (10/15/2024 6:08 AM EDT) Sodium 135 133 - 146 mmol/L 10/15/2024 6:45 AM EDT [facility] Potassium 3.4(L) 3.5 - 5.3 mmol/L 10/15/2024 6:45 AM EDT [facility] Chloride 107 98 - 110 mmol/L 10/15/2024 6:45 AM EDT [facility] CO2 17(L) 21 - 33 mmol/L 10/15/2024 6:45 AM EDT [facility] Anion Gap 11 3 - 16 mmol/L 10/15/2024 6:45 AM EDT [facility] BUN 55(H) 7 - 25 mg/dL 10/15/2024 6:45 AM EDT [facility] Creatinine 2.88(H) 0.60 - 1.30 mg/dL 10/15/2024 6:45 AM EDT [facility] Glucose 125(H) 70 - 100 mg/dL 10/15/2024 6:45 AM EDT [facility] Calcium 8.4(L) 8.6 - 10.3 mg/dL 10/15/2024 6:45 AM EDT [facility] Phosphorus 3.9 2.1 - 4.7 mg/dL 10/15/2024 6:45 AM EDT [facility] Albumin 3.2(L) 3.5 - 5.7 g/dL 10/15/2024 6:45 AM EDT [facility] Osmolality, Calculated 297 278 - 305 mOsm/kg 10/15/2024 6:45 AM EDT [facility] EGFR 27 10/15/2024 6:45 AM EDT [facility] Comment:As of 2021, [...] MD, PhD LAB BLOOD ORDERABLES Final Result [facility] [address] [place] [address], [facility] * (ABNORMAL) CBC (10/15/2024 6:08 AM EDT) Pathologist [facility] WBC 4.6 3.8 - 10.8 10E3/uL 10/15/2024 6:51 AM EDT [facility] RBC 1.94(L) 4.20 - 5.80 10E6/uL 10/15/2024 6:51 AM EDT [facility] Hemoglobin 7.1(L) 13.2 - 17.1 g/dL 10/15/2024 6:51 AM EDT [facility] Hematocrit 19.6(L) 38.5 - 50.0 % 10/15/2024 6:51 AM EDT [facility] MCV 100.8(H) 80.0 - 100.0 fL 10/15/2024 6:51 AM EDT [facility] MCH 36.7(H) 27.0 - 33.0 pg 10/15/2024 6:51 AM EDT [facility] MCHC 36.4(H) 32.0 - 36.0 g/dL 10/15/2024 6:51 AM EDT [facility] RDW 17.3(H) 11.0 - 15.0 % 10/15/2024 6:51 AM EDT [facility] Platelets 34(L) 140 - 400 10E3/uL 10/15/2024 6:51 AM EDT [facility] Comment:Specimen checked for clots. None detected. MPV 8.7 7.5 - 11.5 fL 10/15/2024 6:51 AM EDT [facility] Whole Blood 10/15/2024 6:08 AM EDT 10/15/2024 6:17 AM EDT us Eileen Schroeder MD, PhD LAB BLOOD ORDERABLES Final Result [facility] [address] [place] [address], [facility] * PRA-HLA Ab Screen (Cytotoxic) (10/15/2024 6:08 AM EDT) Pathologist [facility] The request and specimen(s) for this test have been received and transported to the [facility] at [address] [place] [address]. The [facility] will report results directly to the client. 10/15/2024 6:42 AM EDT [facility] Comment:The request and spec imen(s) for this test have been received and transported to the [facility] at [address] [place] [address]. The [facility] will report results directly to the client. Serum 10/15/2024 6:08 AM EDT 10/15/2024 6:42 AM EDT us Cosmo Pacheco MD LAB BLOOD ORDERABLES Final Resul t [facility] [address] [place] [address] * LEFT HEART CATH (10/14/2024 2:09 PM EDT) 10/14/2024 11:4 7 AM EDT Narrative [facility] - 10/14/2024 9:27 PM EDT *[facility]* Cardiac Microfilmer [address] [place] [address] CATHETERIZATION LAB STUDY Patient: Julien Gilbert Age: [...] manner. 3. Right radial artery access. A 4Ph26bw Glidesheath - Slender - .021 sheath was [...] + + !LV pressure s/d, ed !, 22, dP/xr=1859lg Hg/s! + + + !Aortic pressure s/d (m)!106/58 (75) ! + + + ATTESTATION: Dr. Matta was present for the entire procedure. Dr. Jay Quan was the initial author of this report. Prepared and electronically signed by Irving Matta MD [id number] Procedure Note Irving Matta MD - 10/14/2024 *[facility]* Cardiac Microfilmer [address] [place] [id number] CATHETERIZATION LAB STUDY Patient: Julien Gilbert Age: [...] manner. 3. Right radial artery access. A 5Ph82oa Glidesheath - Slender - .021sheath was advanced [...] complications. Contrast: Omnipaque 350 25ml (total dose). [id number] 125ml (wasted). Radiation: Fluoroscopy time: 15min. Total [...] + + + !LV pressure s/d, ed !112/ 22, dP/fg=6678dw Hg/s! + + + !Aortic pressure s/d (m)!106/58 (75) ! + + + ATTESTATION: Dr. Matta was present for the entire procedure. Dr. Jay Quan wasthe initial author of this report. Prepared and electronically signed by Irving Matta MD [id number] [place] [id number] Final Result Performing Organization Address [facility] de Phone Number [facility] * Transfuse Fresh Frozen Plasma Transfusion Rate: Per dept routine (10/14/2024 2:08 PM EDT) us Eleazar Nguyễn MD NURSING TREATMENT ORDER PAL - BLOOD ADMIN Final Result Performing Organization Address [facility] de Phone Number EXTERNAL * Transfuse Fresh Frozen Plasma Transfusion Rate: Per dept routine, 1 Units (10/14/2024 2:08 PM EDT) Eleazar Nguyễn MD NURSING TREATMENT ORDER PAL - BLOOD ADMIN Final Result Performing Organization Address [facility]/ZIP Co de Phone Number EXTERNAL * Transfuse Platelets Transfusion Rate: Per dept routine (10/14/2024 12:43 PM EDT) us Eleazar Nguyễn MD NURSING TREATMENT ORDER PAL - BLOOD ADMIN Final Result Performing Organization Address [facility] Co de Phone Number EXTERNAL * Transfuse Platelets Transfusion Rate: Per dept routine, 1 Units (10/14/2024 12:43 PM EDT) us Eleazar Nguyễn MD NURSING TREATMENT ORDER PAL - BLOOD ADMIN Final Result Performing Organization Address City/[facility] Co de Phone Number EXTERNAL * Antibody Screen (10/14/2024 8:21 AM EDT) Antibody Screen Negative 10/14/2024 9:11 AM EDT [facility] Blood 10/14/2024 8:21 AM EDT 10/14/2024 8:33 AM EDT Narrative [facility] - 10/14/2024 9:26 AM EDT Testing performed by [facility] Transfusion Service us Eleazar Nguyễn MD BLOOD BANK TEST ORDERAB LES Final Result Performing Organization Address [facility] Co de Phone Number [facility] [address] [facility]. [address] * ABO/Rh (10/14/2024 8:21 AM EDT) ABO Grouping O 10/14/2024 8:55 AM EDT [facility] Rh Type Positive 10/14/2024 8:55 AM EDT [facility] Blood 10/14/2024 8:21 AM EDT 10/14/2024 8:33 AM EDT us Eleazar Nguyễn MD BLOOD BANK TEST ORDERAB LES Final Result Performing Organization Address [facility] Co de Phone Number [facility] [address] * (ABNORMAL) Protime-INR (10/14/2024 2:53 AM EDT) Protime 23.8(H) 12.1 - 15.1 seconds 10/14/2024 4:34 AM EDT [facility] INR 2.1(H) 0.9 - 1.1 10/14/2024 4:34 AM EDT [facility] Comment: RECOMMENDED THERAPEUTIC RANGES USING INR : Stable oral anticoagulant therapy: 2.0 - 3.0 Mechanical prosthetic heart valve: 2.5 - 3.5 Recurrent acute myocardial infarction: 2.5 - 3.5 Plasma 10/14/2024 2:53 AM EDT 10/14/2024 4:16 AM EDT us Eileen Schroeder MD, PhD LAB BLOOD ORDERABLES Final Result [facility] [address] [place] [id number], [facility] * (ABNORMAL) Hepatic Function Panel (10/14/2024 2:53 AM EDT) Total Bilirubin 7.2(H) 0.0 - 1.5 mg/dL 10/14/2024 4:45 AM EDT [facility] Bilirubin, Direct 3.86(H) 0.00 - 0.40 mg/dL 10/14/2024 4:45 AM EDT [facility] AST 41(H) 13 - 39 U/L 10/14/2024 4:45 AM EDT [facility] ALT 22 7 - 52 U/L 10/14/2024 4:45 AM EDT [facility] Alkaline Phosphatase 119 36 - 125 U/L 10/14/2024 4:45 AM EDT [facility] Total Protein 4.6(L) 6.4 - 8.9 g/dL 10/14/2024 4:45 AM EDT [facility] Albumin 3.3(L) 3.5 - 5.7 g/dL 10/14/2024 4:45 AM EDT [facility] Bilirubin, Indirect 3.34(H) 0.00 - 1.10 mg/dL 10/14/2024 4:45 AM EDT [facility] Plasma 10/14/2024 2:53 AM EDT 10/14/2024 4:16 AM EDT us Eileen Schroeder MD, PhD LAB BLOOD ORDERABLES Final Result Performing Organization Address City/[facility]/ZIP Co de Phone Number [facility] [address] * Magnesium (10/14/2024 2:53 AM EDT) Magnesium 1.9 1.5 - 2.5 mg/dL 10/14/2024 4:45 AM EDT [facility] Plasma 10/14/2024 2:53 AM EDT 10/14/2024 4:16 AM EDT us Eileen Schroeder MD, PhD LAB BLOOD ORDERABLES Final Result Performing Organization Address [facility] Co de Phone Number [facility] [address] * (ABNORMAL) Renal Function Panel w/EGFR (10/14/2024 2:53 AM EDT) Sodium 136 133 - 146 mmol/L 10/14/2024 4:45 AM EDT [facility] Potassium 3.5 3.5 - 5.3 mmol/L 10/14/2024 4:45 AM EDT [facility] Chloride 107 98 - 110 mmol/L 10/14/2024 4:45 AM EDT [facility] CO2 16(L) 21 - 33 mmol/L 10/14/2024 4:45 AM EDT [facility] Anion Gap 13 3 - 16 mmol/L 10/14/2024 4:45 AM EDT [facility] BUN 55(H) 7 - 25 mg/dL 10/14/2024 4:45 AM EDT [facility] Creatinine 3.01(H) 0.60 - 1.30 mg/dL 10/14/2024 4:45 AM EDT [facility] Glucose 95 70 - 100 mg/dL 10/14/2024 4:45 AM EDT [facility] Calcium 8.5(L) 8.6 - 10.3 mg/dL 10/14/2024 4:45 AM EDT [facility] Phosphorus 4.4 2.1 - 4.7 mg/dL 10/14/2024 4:45 AM EDT [facility] Albumin 3.3(L) 3.5 - 5.7 g/dL 10/14/2024 4:45 AM EDT [facility] Osmolality, Calculated 297 278 - 305 mOsm/kg 10/14/2024 4:45 AM EDT [facility] EGFR 26 10/14/2024 4:45 AM EDT [facility] Comment:As of 2021, [...] MD, PhD LAB BLOOD ORDERABLES Final Result [facility] [address] [id number] * (ABNORMAL) CBC (10/14/2024 2:53 AM EDT) WBC 5.5 3.8 - 10.8 10E3/uL 10/14/2024 5:00 AM EDT [facility] RBC 2.09(L) 4.20 - 5.80 10E6/uL 10/14/2024 5:00 AM EDT [facility] Hemoglobin 7.6(L) 13.2 - 17.1 g/dL 10/14/2024 5:00 AM EDT [facility] Hematocrit 21.3(L) 38.5 - 50.0 % 10/14/2024 5:00 AM EDT [facility] MCV 101.7(H) 80.0 - 100.0 fL 10/14/2024 5:00 AM EDT [facility] MCH 36.3(H) 27.0 - 33.0 pg 10/14/2024 5:00 AM EDT [facility] MCHC 35.7 32.0 - 36.0 g/dL 10/14/2024 5:00 AM EDT [facility] RDW 17.6(H) 11.0 - 15.0 % 10/14/2024 5:00 AM EDT [facility] Platelets 35(L) 140 - 400 10E3/uL 10/14/2024 5:00 AM EDT [facility] Comment: Specimen checked for clots. None detected. Slide Reviewed for PLT Clumps. None Seen. MPV 8.5 7.5 - 11.5 fL 10/14/2024 5:00 AM EDT [facility] Whole Blood 10/14/2024 2:53 AM EDT 10/14/2024 4:17 AM EDT us Eileen Schroeder MD, PhD LAB BLOOD ORDERABLES Final Result [facility] [address] * Cardiac Cath Documents Scan (10/14/2024 2:06 [...] mL of GADOBUTROL 1 MMOL/ML [facility] ([facility]) administered intravenously COMPARISON: CT 09/03/2024. Ultrasound 10/07/2024. [...] mL of GADOBUTROL 1 MMOL/ML [facility] ([facility])administered intravenously COMPARISON: CT 09/03/2024. Ultrasound 10/07/2024. Outside [...] Rodriguez MD at 10/14/2024 12:02 PM EDT us Eileen Schroeder MD, PhD IMG MRI ORDERABLES Fi nal Result * (ABNORMAL) Protime-INR (10/13/2024 5:35 AM EDT) Pathologist [facility] Protime 24.4(H) 12.1 - 15.1 seconds 10/13/2024 6:12 AM EDT [facility] INR 2.1(H) 0.9 - 1.1 10/13/2024 6:12 AM EDT [facility] Comment: RECOMMENDED THERAPEUTIC RANGES USING INR : Stable oral anticoagulant therapy: 2.0 - 3.0 Mechanical prosthetic heart valve: 2.5 - 3.5 Recurrent acute myocardial infarction: 2.5 - 3.5 Plasma 10/13/2024 5:35 AM EDT 10/13/2024 5:52 AM EDT us Eileen Schroeder MD, PhD LAB BLOOD ORDERABLES Final Result [facility] [address] * (ABNORMAL) Hepatic Function Panel (10/13/2024 5:35 AM EDT) Total Bilirubin 6.5(H) 0.0 - 1.5 mg/dL 10/13/2024 6:30 AM EDT [facility] Bilirubin, Direct 3.53(H) 0.00 - 0.40 mg/dL 10/13/2024 6:30 AM EDT [facility] AST 42(H) 13 - 39 U/L 10/13/2024 6:30 AM EDT [facility] ALT 19 7 - 52 U/L 10/13/2024 6:30 AM EDT [facility] Alkaline Phosphatase 108 36 - 125 U/L 10/13/2024 6:30 AM EDT [facility] Total Protein 4.4(L) 6.4 - 8.9 g/dL 10/13/2024 6:30 AM EDT [facility] Albumin 3.1(L) 3.5 - 5.7 g/dL 10/13/2024 6:30 AM EDT [facility] Bilirubin, Indirect 2.97(H) 0.00 - 1.10 mg/dL 10/13/2024 6:30 AM EDT [facility] Plasma 10/13/2024 5:35 AM EDT 10/13/2024 5:52 AM EDT Eileen Schroeder MD, PhD LAB BLOOD ORDERABLES Final Result Performing Organization Address [facility]/ZIP Co de Phone Number [facility] [address] [facility]. [address] * Magnesium (10/13/2024 5:35 AM EDT) Magnesium 2.0 1.5 - 2.5 mg/dL 10/13/2024 6:30 AM EDT [facility] Plasma 10/13/2024 5:35 AM EDT 10/13/2024 5:52 AM EDT Eileen Schroeder MD, PhD LAB BLOOD ORDERABLES Final Result Performing Organization Address [facility]/ZIP Co de Phone Number [facility] [address] * (ABNORMAL) Renal Function Panel w/EGFR (10/13/2024 5:35 AM EDT) Sodium 134 133 - 146 mmol/L 10/13/2024 6:30 AM EDT [facility] Potassium 3.7 3.5 - 5.3 mmol/L 10/13/2024 6:30 AM EDT [facility] Chloride 109 98 - 110 mmol/L 10/13/2024 6:30 AM EDT [facility] CO2 14(L) 21 - 33 mmol/L 10/13/2024 6:30 AM EDT [facility] Anion Gap 11 3 - 16 mmol/L 10/13/2024 6:30 AM EDT [facility] BUN 54(H) 7 - 25 mg/dL 10/13/2024 6:30 AM EDT [facility] Creatinine 2.99(H) 0.60 - 1.30 mg/dL 10/13/2024 6:30 AM EDT [facility] Glucose 116(H) 70 - 100 mg/dL 10/13/2024 6:30 AM EDT [facility] Calcium 8.3(L) 8.6 - 10.3 mg/dL 10/13/2024 6:30 AM EDT [facility] Phosphorus 4.5 2.1 - 4.7 mg/dL 10/13/2024 6:30 AM EDT [facility] Albumin 3.1(L) 3.5 - 5.7 g/dL 10/13/2024 6:30 AM EDT [facility] Osmolality, Calculated 294 278 - 305 mOsm/kg 10/13/2024 6:30 AM EDT [facility] EGFR 26 10/13/2024 6:30 AM EDT [facility] Comment:As of 2021, [...] MD, PhD LAB BLOOD ORDERABLES Final Result [facility] [address] [place] [address], [facility] * (ABNORMAL) CBC (10/13/2024 5:35 AM EDT) WBC 4.7 3.8 - 10.8 10E3/uL 10/13/2024 6:22 AM EDT [facility] RBC 2.06(L) 4.20 - 5.80 10E6/uL 10/13/2024 6:22 AM EDT [facility] Hemoglobin 7.4(L) 13.2 - 17.1 g/dL 10/13/2024 6:22 AM EDT [facility] Hematocrit 21.7(L) 38.5 - 50.0 % 10/13/2024 6:22 AM EDT [facility] MCV 105.4(H) 80.0 - 100.0 fL 10/13/2024 6:22 AM EDT [facility] MCH 35.9(H) 27.0 - 33.0 pg 10/13/2024 6:22 AM EDT [facility] MCHC 34.0 32.0 - 36.0 g/dL 10/13/2024 6:22 AM EDT [facility] RDW 18.5(H) 11.0 - 15.0 % 10/13/2024 6:22 AM EDT [facility] Platelets 35(L) 140 - 400 10E3/uL 10/13/2024 6:22 AM EDT [facility] Comment: CNV Specimen checked for clots. None detected. MPV 8.4 7.5 - 11.5 fL 10/13/2024 6:22 AM EDT [facility] Whole Blood 10/13/2024 5:35 AM EDT 10/13/2024 5:53 AM EDT us Eileen Schroeder MD, PhD LAB BLOOD ORDERABLES Final Result [facility] [address] [place], [place] [address] * (ABNORMAL) Ammonia (10/13/2024 5:35 AM EDT) Ammonia 203(HH) 27 - 90 ug/dL 10/13/2024 7:16 AM EDT [facility] Comment: HEMOLYSIS EVIDENT. RESULTS MAY BE INFLUENCED. Critical Result [id number]_[id number] Called to and read back by: KEY MELO RN at: 10/13/2024 07:15:55 by:NISREEN Plasma 10/13/2024 5:35 AM EDT 10/13/2024 6:19 AM EDT us Ellis Mays DO LAB BLOOD ORDERABLES Final Resul t [facility] [address] [facility]. [address] * CARISA Rhythm Strip - Scan (10/12/2024 10:30 PM EDT) us Scanning [facility] SCAN DOCS - NO RESULTS Final Res ult * (ABNORMAL) Protime-INR (10/12/2024 5:44 AM EDT) Protime 25.7(H) 12.1 - 15.1 seconds 10/12/2024 6:12 AM EDT [facility] INR 2.3(H) 0.9 - 1.1 10/12/2024 6:12 AM EDT [facility] Comment: RECOMMENDED THERAPEUTIC RANGES USING INR : Stable oral anticoagulant therapy: 2.0 - 3.0 Mechanical prosthetic heart valve: 2.5 - 3.5 Recurrent acute myocardial infarction: 2.5 - 3.5 Plasma 10/12/2024 5:44 AM EDT 10/12/2024 5:58 AM EDT us Eileen Schroeder MD, PhD LAB BLOOD ORDERABLES Final Result Performing Organization Address [facility]/ZIP Co de Phone Number [facility] [address] * (ABNORMAL) Hepatic Function Panel (10/12/2024 5:44 AM EDT) Total Bilirubin 6.5(H) 0.0 - 1.5 mg/dL 10/12/2024 6:29 AM EDT [facility] Bilirubin, Direct 3.64(H) 0.00 - 0.40 mg/dL 10/12/2024 6:29 AM EDT [facility] AST 40(H) 13 - 39 U/L 10/12/2024 6:29 AM EDT [facility] ALT 19 7 - 52 U/L 10/12/2024 6:29 AM EDT [facility] Alkaline Phosphatase 99 36 - 125 U/L 10/12/2024 6:29 AM EDT [facility] Total Protein 4.2(L) 6.4 - 8.9 g/dL 10/12/2024 6:29 AM EDT [facility] Albumin 3.1(L) 3.5 - 5.7 g/dL 10/12/2024 6:29 AM EDT [facility] Bilirubin, Indirect 2.86(H) 0.00 - 1.10 mg/dL 10/12/2024 6:29 AM EDT [facility] Plasma 10/12/2024 5:44 AM EDT 10/12/2024 5:58 AM EDT Eileen Schroeder MD, PhD LAB BLOOD ORDERABLES Final Result Performing Organization Address [facility]/ZIP Co de Phone Number [facility] [address] [place] [address] * Magnesium (10/12/2024 5:44 AM EDT) Magnesium 1.9 1.5 - 2.5 mg/dL 10/12/2024 6:29 AM EDT [facility] Plasma 10/12/2024 5:44 AM EDT 10/12/2024 5:58 AM EDT Eileen Schroeder MD, PhD LAB BLOOD ORDERABLES Final Result Performing Organization Address [facility] Co de Phone Number [facility] [address] * (ABNORMAL) Renal Function Panel w/EGFR (10/12/2024 5:44 AM EDT) Sodium 135 133 - 146 mmol/L 10/12/2024 6:29 AM EDT [facility] Potassium 3.7 3.5 - 5.3 mmol/L 10/12/2024 6:29 AM EDT [facility] Chloride 109 98 - 110 mmol/L 10/12/2024 6:29 AM EDT [facility] CO2 17(L) 21 - 33 mmol/L 10/12/2024 6:29 AM EDT [facility] Anion Gap 9 3 - 16 mmol/L 10/12/2024 6:29 AM EDT [facility] BUN 52(H) 7 - 25 mg/dL 10/12/2024 6:29 AM T [facility] Creatinine 2.94(H) 0.60 - 1.30 mg/dL 10/12/2024 6:29 AM EDT [facility] Glucose 121(H) 70 - 100 mg/dL 10/12/2024 6:29 AM EDT [facility] Calcium 8.5(L) 8.6 - 10.3 mg/dL 10/12/2024 6:29 AM EDT [facility] Phosphorus 4.6 2.1 - 4.7 mg/dL 10/12/2024 6:29 AM EDT [facility] Albumin 3.1(L) 3.5 - 5.7 g/dL 10/12/2024 6:29 AM [facility] Osmolality, Calculated 295 278 - 305 mOsm/kg 10/12/2024 6:29 AM [facility] EGFR 27 10/12/2024 6:29 AM [facility] Comment:As of 2021, the estimated [...] 5:44 AM EDT 10/12/2024 5:58 AM EDT Eileen Schroeder MD, PhD LAB BLOOD ORDERABLES Final Result [facility] [address] [place], [place] [address] * (ABNORMAL) CBC (10/12/2024 5:44 AM EDT) WBC 3.3(L) 3.8 - 10.8 10E3/uL 10/12/2024 7:06 AM EDT [facility] RBC 1.95(L) 4.20 - 5.80 10E6/uL 10/12/2024 7:06 AM EDT [facility] Hemoglobin 7.2(L) 13.2 - 17.1 g/dL 10/12/2024 7:06 AM EDT [facility] Hematocrit 19.7(L) 38.5 - 50.0 % 10/12/2024 7:06 AM EDT [facility] MCV 101.2(H) 80.0 - 100.0 fL 10/12/2024 7:06 AM EDT [facility] MCH 37.0(H) 27.0 - 33.0 pg 10/12/2024 7:06 AM EDT [facility] MCHC 36.5(H) 32.0 - 36.0 g/dL 10/12/2024 7:06 AM EDT [facility] RDW 17.6(H) 11.0 - 15.0 % 10/12/2024 7:06 AM EDT [facility] Platelets 30(L) 140 - 400 10E3/uL 10/12/2024 7:06 AM EDT [facility] Comment: Specimen checked for clots. None detected. Slide Reviewed for PLT Clumps. None Seen. Platelet Estimate Decreased 10/12/2024 7:06 AM EDT [facility] MPV 8.3 7.5 - 11.5 fL 10/12/2024 7:06 AM EDT [facility] Whole Blood 10/12/2024 5:44 AM EDT 10/12/2024 5:58 AM EDT Narrative [facility] - 10/12/2024 7:06 AM EDT Peripheral blood smear was scanned per review criteria approved by the laboratory medical records clerk. us Eileen Schroeder MD, PhD LAB BLOOD ORDERABLES Final Result [facility] [address] [facility]. [address] * CARISA Rhythm Strip - Scan (10/11/2024 10:04 PM EDT) us Scanning [facility] SCAN DOCS - NO RESULTS Final Res ult * (ABNORMAL) Protime-INR (10/11/2024 3:02 AM EDT) Protime 26.8(H) 12.1 - 15.1 seconds 10/11/2024 3:30 AM EDT [facility] INR 2.4(H) 0.9 - 1.1 10/11/2024 3:30 AM EDT [facility] Comment: RECOMMENDED THERAPEUTIC RANGES USING INR : Stable oral anticoagulant therapy: 2.0 - 3.0 Mechanical prosthetic heart valve: 2.5 - 3.5 Recurrent acute myocardial infarction: 2.5 - 3.5 Plasma 10/11/2024 3:02 AM EDT 10/11/2024 3:08 AM EDT us Eileen Schroeder MD, PhD LAB BLOOD ORDERABLES Final Result Performing Organization Address City/[facility]/ZIP Co de Phone Number [facility] [address] [facility]. [address] * (ABNORMAL) Hepatic Function Panel (10/11/2024 3:02 AM EDT) Total Bilirubin 7.3(H) 0.0 - 1.5 mg/dL 10/11/2024 3:38 AM EDT [facility] Bilirubin, Direct 3.85(H) 0.00 - 0.40 mg/dL 10/11/2024 3:38 AM EDT [facility] AST 39 13 - 39 U/L 10/11/2024 3:38 AM EDT [facility] ALT 20 7 - 52 U/L 10/11/2024 3:38 AM EDT [facility] Alkaline Phosphatase 88 36 - 125 U/L 10/11/2024 3:38 AM EDT [facility] Total Protein 4.5(L) 6.4 - 8.9 g/dL 10/11/2024 3:38 AM EDT [facility] Albumin 3.3(L) 3.5 - 5.7 g/dL 10/11/2024 3:38 AM EDT [facility] Bilirubin, Indirect 3.45(H) 0.00 - 1.10 mg/dL 10/11/2024 3:38 AM EDT [facility] Plasma 10/11/2024 3:02 AM EDT 10/11/2024 3:08 AM EDT us Eileen Schroeder MD, PhD LAB BLOOD ORDERABLES Final Result Performing Organization Address [facility]/ZIP Co de Phone Number [facility] [address] * Magnesium (10/11/2024 3:02 AM EDT) Magnesium 2.0 1.5 - 2.5 mg/dL 10/11/2024 3:38 AM EDT [facility] Plasma 10/11/2024 3:02 AM EDT 10/11/2024 3:08 AM EDT Eileen Schroeder MD, PhD LAB BLOOD ORDERABLES Final Result [facility] [address] * (ABNORMAL) Renal Function Panel w/EGFR (10/11/2024 3:02 AM EDT) Sodium 134 133 - 146 mmol/L 10/11/2024 3:38 AM EDT [facility] Potassium 3.6 3.5 - 5.3 mmol/L 10/11/2024 3:38 AM EDT [facility] Chloride 108 98 - 110 mmol/L 10/11/2024 3:38 AM EDT [facility] CO2 16(L) 21 - 33 mmol/L 10/11/2024 3:38 AM EDT [facility] Anion Gap 10 3 - 16 mmol/L 10/11/2024 3:38 AM EDT [facility] BUN 49(H) 7 - 25 mg/dL 10/11/2024 3:38 AM EDT [facility] Creatinine 2.77(H) 0.60 - 1.30 mg/dL 10/11/2024 3:38 AM EDT [facility] Glucose 112(H) 70 - 100 mg/dL 10/11/2024 3:38 AM EDT [facility] Calcium 8.9 8.6 - 10.3 mg/dL 10/11/2024 3:38 AM EDT [facility] Phosphorus 3.5 2.1 - 4.7 mg/dL 10/11/2024 3:38 AM EDT [facility] Albumin 3.3(L) 3.5 - 5.7 g/dL 10/11/2024 3:38 AM EDT [facility] Osmolality, Calculated 292 278 - 305 mOsm/kg 10/11/2024 3:38 AM EDT [facility] EGFR 29 10/11/2024 3:38 AM EDT [facility] Comment:As of 2021, [...] 3:02 AM EDT 10/11/2024 3:08 AM EDT Eileen Schroeder MD, PhD LAB BLOOD ORDERABLES Final Result [facility] [address] [place] [address], [facility] * (ABNORMAL) CBC (10/11/2024 3:02 AM EDT) WBC 4.0 3.8 - 10.8 10E3/uL 10/11/2024 3:55 AM EDT [facility] RBC 2.11(L) 4.20 - 5.80 10E6/uL 10/11/2024 3:55 AM EDT [facility] Hemoglobin 7.7(L) 13.2 - 17.1 g/dL 10/11/2024 3:55 AM EDT [facility] Hematocrit 21.2(L) 38.5 - 50.0 % 10/11/2024 3:55 AM EDT [facility] MCV 100.5(H) 80.0 - 100.0 fL 10/11/2024 3:55 AM EDT [facility] MCH 36.4(H) 27.0 - 33.0 pg 10/11/2024 3:55 AM EDT [facility] MCHC 36.2(H) 32.0 - 36.0 g/dL 10/11/2024 3:55 AM EDT [facility] RDW 17.9(H) 11.0 - 15.0 % 10/11/2024 3:55 AM EDT [facility] Platelets 32(L) 140 - 400 10E3/uL 10/11/2024 3:55 AM EDT [facility] Comment: Specimen checked for clots. None detected. Slide Reviewed for PLT Clumps. None Seen. Platelet Estimate Decreased 10/11/2024 3:55 AM EDT [facility] MPV 8.1 7.5 - 11.5 fL 10/11/2024 3:55 AM EDT [facility] Whole Blood 10/11/2024 3:02 AM EDT 10/11/2024 3:08 AM EDT Narrative [facility] - 10/11/2024 3:55 AM EDT Peripheral blood smear was scanned per review criteria approved by the laboratory medical records clerk. us Eileen Schroeder MD, PhD LAB BLOOD ORDERABLES Final Result [facility] [address] [facility]. [address] * Vancomycin, random (10/11/2024 3:02 AM EDT) Vancomycin Random 13.4 ug/mL 10/11/2024 3:37 AM EDT [facility] Comment:Reference range not established for this test. Plasma 10/11/2024 3:02 AM EDT 10/11/2024 3:08 AM EDT us Jodi FreireD LAB BLOOD ORDERABLES Final Result Performing Organization Address [facility] Co de Phone Number [facility] [address] [facility]. [address] * IR Paracentesis incl imaging guide (10/10/2024 [...] diagnostic and therapeutic paracentesis. Bakari Wahl CNP, Director Of Undergraduate Admissions Procedure and Findings: The procedure was performed [...] Using ultrasound guidance, a 10 cm, 5-F Talkray Centesis catheter was placed into the right [...] for diagnostic andtherapeutic paracentesis. Bakari Wahl CNP, Director Of Undergraduate Admissions Procedure and Findings: The procedure was performed [...] 10/10/2024 3:31 PM EDT Chari Vanegas MD IMG IR ORDERABLES Final Result * Stress Testing Lab - scan (10/10/2024 3:08 PM EDT) us Scanning [facility] SCAN DOCS - NO RESULTS Final Res ult * (ABNORMAL) Body fluid cell count (10/10/2024 1:51 PM EDT) Color, Fluid Yellow(A) Colorless, Pale Yellow 10/10/2024 5:29 PM EDT [facility] Clarity, Fluid Clear 10/10/2024 5:29 PM EDT [facility] Neutrophil %, Fluid 9 % 10/10/2024 5:29 PM EDT [facility] Lymphocytes %, Fluid 13 % 10/10/2024 5:29 PM EDT [facility] Mesothelial %, Fluid 6 % 10/10/2024 5:29 PM EDT [facility] Macrophage %, Fluid 72 % 10/10/2024 5:29 PM EDT [facility] RBC, Fluid 2,662 /uL 10/10/2024 4:41 PM EDT [facility] Total Nucleated Cells, Fluid 89 /uL 10/10/2024 4:41 PM EDT [facility] Comment:Total Nucleated Cell s represent WBCs and other nucleated cells in the fluid such as lining cells. Ascitic Fluid ABDOMEN / Unknown 1:51 PM EDT 10/10/2024 3:56 PM EDT Gerri Peterson MD BODY FLUIDS AND STOOLS ORDERABL ES Final Result Performing Organization Address [facility] de Phone Number [facility] [address] * Body Fluid Culture plus Stain (10/10/2024 1:51 PM EDT) Gram Stain Result Cytospin Results: [facility] Gram Stain Result Polymorphonuclear Leukocytes Seen; [facility] Gram Stain Result No Organisms Seen; [facility] Culture Result No Growth After 5 Days [facility] Fluid ABDOMEN / Unknown 10/10/2024 1:51 PM EDT 10/10/2024 3:56 PM EDT Gerri Peterson MD MICROBIOLOGY - GENERAL ORDERABL ES Final Result Performing Organization Address [facility] de Phone Number [facility] [address] * UPPER GI ENDOSCOPY (10/10/2024 11:48 AM EDT) 10/10/2024 11:4 8 AM EDT Narrative [facility] - 10/10/2024 12:34 PM EDT [id number] Procedure Date: 10/10/2024 11:48 AM Patient Name: Julien Gilbert Date of : 1985 Admit Type: Inpatient Age: 39 Gender: Male Note Status: Finalized Attending MD: Lino Soto MD, [id number] Procedure: Upper GI endoscopy Indications: Gastroesopahgeal variceal [...] verified by the physician, the nurse, the pharmacy services director and the hot cell technician in the pre-procedure area in the [...] to hypotension Procedure Code(s): --- Professional --- 77143, GC, Esophagogastroduodenoscopy, flexible, transoral; diagnostic, including collection of specimen(s) by brushing or washing, when performed (separate procedure) Diagnosis Code(s): --- Professional --- I85.00, Esophageal 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 All rights reserved. The codes documented in this report are preliminary and upon continuity writer review may be revised to meet current [...] In: 12:10:16 PM Scope Out: 12:17:[address] [place] [address], [id number] us Provider Not In System PROCEDURE/MINOR SURGICAL ORDERABLES Final Result [facility] * (ABNORMAL) Protime-INR (10/10/2024 5:23 AM EDT) Protime 23.9(H) 12.1 - 15.1 seconds 10/10/2024 6:11 AM EDT [facility] INR 2.1(H) 0.9 - 1.1 10/10/2024 6:11 AM EDT [facility] Comment: RECOMMENDED THERAPEUTIC RANGES USING INR : Stable oral anticoagulant therapy: 2.0 - 3.0 Mechanical prosthetic heart valve: 2.5 - 3.5 Recurrent acute myocardial infarction: 2.5 - 3.5 Plasma 10/10/2024 5:23 AM EDT 10/10/2024 5:50 AM EDT Eileen Schroeder MD, PhD LAB BLOOD ORDERABLES Final Result Performing Organization Address [facility] Co de Phone Number [facility] [address] * (ABNORMAL) Hepatic Function Panel (10/10/2024 5:23 AM EDT) Total Bilirubin 8.6(H) 0.0 - 1.5 mg/dL 10/10/2024 6:21 AM EDT [facility] Bilirubin, Direct 4.65(H) 0.00 - 0.40 mg/dL 10/10/2024 6:21 AM EDT [facility] AST 40(H) 13 - 39 U/L 10/10/2024 6:21 AM EDT [facility] ALT 22 7 - 52 U/L 10/10/2024 6:21 AM EDT [facility] Alkaline Phosphatase 118 36 - 125 U/L 10/10/2024 6:21 AM EDT [facility] Total Protein 4.6(L) 6.4 - 8.9 g/dL 10/10/2024 6:21 AM EDT [facility] Albumin 3.3(L) 3.5 - 5.7 g/dL 10/10/2024 6:21 AM EDT [facility] Bilirubin, Indirect 3.95(H) 0.00 - 1.10 mg/dL 10/10/2024 6:21 AM EDT [facility] Plasma 10/10/2024 5:23 AM EDT 10/10/2024 5:50 AM EDT Eileen Schroeder MD, PhD LAB BLOOD ORDERABLES Final Result Performing Organization Address City/[facility]/ZIP Co de Phone Number [facility] [address] * Magnesium (10/10/2024 5:23 AM EDT) Magnesium 1.9 1.5 - 2.5 mg/dL 10/10/2024 6:21 AM EDT [facility] Plasma 10/10/2024 5:23 AM EDT 10/10/2024 5:50 AM EDT Eileen Schroeder MD, PhD LAB BLOOD ORDERABLES Final Result Performing Organization Address [facility] Co de Phone Number [facility] [address] * (ABNORMAL) Renal Function Panel w/EGFR (10/10/2024 5:23 AM EDT) Sodium 135 133 - 146 mmol/L 10/10/2024 6:21 AM EDT [facility] Potassium 3.6 3.5 - 5.3 mmol/L 10/10/2024 6:21 AM EDT [facility] Chloride 108 98 - 110 mmol/L 10/10/2024 6:21 AM EDT [facility] CO2 17(L) 21 - 33 mmol/L 10/10/2024 6:21 AM EDT [facility] Anion Gap 10 3 - 16 mmol/L 10/10/2024 6:21 AM EDT [facility] BUN 53(H) 7 - 25 mg/dL 10/10/2024 6:21 AM EDT [facility] Creatinine 2.85(H) 0.60 - 1.30 mg/dL 10/10/2024 6:21 AM EDT [facility] Glucose 113(H) 70 - 100 mg/dL 10/10/2024 6:21 AM EDT [facility] Calcium 9.0 8.6 - 10.3 mg/dL 10/10/2024 6:21 AM EDT [facility] Phosphorus 3.3 2.1 - 4.7 mg/dL 10/10/2024 6:21 AM EDT [facility] Albumin 3.3(L) 3.5 - 5.7 g/dL 10/10/2024 6:21 AM EDT [facility] Osmolality, Calculated 295 278 - 305 mOsm/kg 10/10/2024 6:21 AM EDT [facility] EGFR 28 10/10/2024 6:21 AM EDT [facility] Comment:As of 2021, [...] MD, PhD LAB BLOOD ORDERABLES Final Result [facility] [address] [place] [address], [facility] * (ABNORMAL) CBC (10/10/2024 5:23 AM EDT) WBC 5.1 3.8 - 10.8 10E3/uL 10/10/2024 6:14 AM EDT [facility] RBC 2.04(L) 4.20 - 5.80 10E6/uL 10/10/2024 6:14 AM EDT [facility] Hemoglobin 7.3(L) 13.2 - 17.1 g/dL 10/10/2024 6:14 AM EDT [facility] Hematocrit 20.6(L) 38.5 - 50.0 % 10/10/2024 6:14 AM EDT [facility] MCV 101.2(H) 80.0 - 100.0 fL 10/10/2024 6:14 AM EDT [facility] MCH 36.0(H) 27.0 - 33.0 pg 10/10/2024 6:14 AM EDT [facility] MCHC 35.5 32.0 - 36.0 g/dL 10/10/2024 6:14 AM EDT [facility] RDW 17.6(H) 11.0 - 15.0 % 10/10/2024 6:14 AM EDT [facility] Platelets 39(L) 140 - 400 10E3/uL 10/10/2024 6:14 AM EDT [facility] Comment: CNV Specimen checked for clots. None detected. MPV 9.8 7.5 - 11.5 fL 10/10/2024 6:14 AM EDT [facility] Whole Blood 10/10/2024 5:23 AM EDT 10/10/2024 5:51 AM EDT us Eileen Schroeder MD, PhD LAB BLOOD ORDERABLES Final Result Performing Organization Address [facility] de Phone Number [facility] [address] * Vancomycin, random (10/10/2024 5:23 AM EDT) Vancomycin Random 16.4 ug/mL 10/10/2024 6:22 AM EDT [facility] Comment:Reference range not established for this test. Plasma 10/10/2024 5:23 AM EDT 10/10/2024 5:51 AM EDT us Jodi FreireD LAB BLOOD ORDERABLES Final Result [facility] [address] [facility] [place] [address], [facility] * ECHO STRESS W/ CONTRAST (10/09/2024 4:37 PM EDT) Anatomical Region Laterality Modality Chest Ultrasound 10/09/2024 2:40 PM EDT Narrative 10/09/2024 6:45 PM EDT * [facility]* [address] [place] [address] Stress Echocardiogram Patient: Julien Gilbert Room: 8142 Height: 76in MR Number: [id number] : 1985 Weight: 262lb Account: [id number] Gender: M BP: 125 / 77 Study Date: 10/09/2024 Age: 39 BSA: 2.48m^2 Referring physician: Gerri Peterson Interpreting physician: Tonya Henriquez MD FELLOW Lisa Jha MD PERFORMING Tonya Henriquez MD REFRIGERATOR [employer] ORDERING Gerri Peterson REFERRING Gerri [...] was augmented by the addition of hand assistant branch operations manager and leg lifts. The infusion was terminated [...] at baseline or with provocation, shows no cfitb-eo-dvrc atrial level shunt. - Pulmonary arteries: Systolic [...] at baseline or with provocation, shows no nyvtm-rs-disv atrial level shunt. Pulmonary artery: - Systolic [...] at baseline or with provocation, shows no qtpgc-wc-aplx atrial level shunt. Pericardium: - There is [...] peak heart rate and blood pressure was 15875yp Hg/min. Stress testing did not produce any [...] Reviewed and confirmed by Tonya Henriquez MD [id number] Procedure Note Tonya Henriquez MD - 10/09/2024 * [facility]* [address] [place] [address] [id number] Stress Echocardiogram Patient: Julien Gilbert Room: 8142 Height: 76in MR Number: [id number] : 1985 Weight: 262lb Account: [id number] Gender: M BP: 125 / 77 Study Date: 10/09/2024 Age: 39 BSA: 2.48m^2 Referring physician: Gerri Peterson Interpreting physician: Tonya Henriquez MD FELLOW Lisa Jha MD PERFORMING Tonya Henriquez MD REFRIGERATOR [employer] ORDERING Gerri Peterson REFERRING Gerri Peterson ATTENDING Fouzia Rene ADMITTING Angie Blanchard Procedure:STRESS ECHO - PHARMACOLOGIC Order: Indications: Pre-Operative Clearance (Z01.818). PMH: EtOH Use Disorder. Risk factors: Hypertension. Dyslipidemia. Study data: Height: 76in. 193cm. Weight: 262lb. 118.8kg. The previousstudy was not available, so comparison was made to the report of 07/15/2024. Study status: Routine. Procedure: [facility]. Intravenous access [...] was augmented by the addition of hand assistant branch operations manager and leg lifts. The infusion was terminated [...] at baseline or with provocation, shows no hhjfx-ur-hdyw atrial level shunt. - Pulmonary arteries: Systolic [...] study at baseline or with provocation, showsno jnpwo-qq-mqbd atrial level shunt. Pulmonary artery: - Systolic [...] at baseline or with provocation, shows no zcthm-mt-agcm atrial level shunt. Pericardium: - There is [...] heart rate). The maximal predicted heart rate [id number]. The target heart rate was 152bpm. The target heart rate was achieved.The heart rate response to stress is normal. There is a normal resting blood pressure with an appropriate response to stress. The rate-pressureproduct for the peak heart rate and blood pressure was 18805bb Hg/min. Stress testing did not produce any [...] Reviewed and confirmed by Tonya Henriquez MD [id number] us Gerri Peterson MD CV ECHO ORDERABLES Final Result * (ABNORMAL) Renal Function Panel w/EGFR, STAT (10/09/2024 1:05 PM EDT) Sodium 134 133 - 146 mmol/L 10/09/2024 2:10 PM EDT [facility] Potassium 3.7 3.5 - 5.3 mmol/L 10/09/2024 2:10 PM EDT [facility] Chloride 105 98 - 110 mmol/L 10/09/2024 2:10 PM EDT [facility] CO2 17(L) 21 - 33 mmol/L 10/09/2024 2:10 PM EDT [facility] Anion Gap 12 3 - 16 mmol/L 10/09/2024 2:10 PM EDT [facility] BUN 53(H) 7 - 25 mg/dL 10/09/2024 2:10 PM EDT [facility] Creatinine 2.89(H) 0.60 - 1.30 mg/dL 10/09/2024 2:10 PM EDT [facility] Glucose 108(H) 70 - 100 mg/dL 10/09/2024 2:10 PM EDT [facility] Calcium 9.3 8.6 - 10.3 mg/dL 10/09/2024 2:10 PM EDT [facility] Phosphorus 3.4 2.1 - 4.7 mg/dL 10/09/2024 2:10 PM EDT [facility] Albumin 3.6 3.5 - 5.7 g/dL 10/09/2024 2:10 PM EDT [facility] Osmolality, Calculated 293 278 - 305 mOsm/kg 10/09/2024 2:10 PM EDT [facility] EGFR 27 10/09/2024 2:10 PM EDT [facility] Comment:As of 2021, [...] LAB BLOOD ORDERABLES Final Result [facility] [address] [facility]. [place] [id number], [facility] * (ABNORMAL) Renal Function Panel w/EGFR, STAT (10/09/2024 8:14 AM EDT) Sodium 134 133 - 146 mmol/L 10/09/2024 8:47 AM EDT [facility] Potassium 3.4(L) 3.5 - 5.3 mmol/L 10/09/2024 8:47 AM EDT [facility] Chloride 107 98 - 110 mmol/L 10/09/2024 8:47 AM EDT [facility] CO2 17(L) 21 - 33 mmol/L 10/09/2024 8:47 AM EDT [facility] Anion Gap 10 3 - 16 mmol/L 10/09/2024 8:47 AM EDT [facility] BUN 54(H) 7 - 25 mg/dL 10/09/2024 8:47 AM EDT [facility] Creatinine 3.04(H) 0.60 - 1.30 mg/dL 10/09/2024 8:47 AM EDT [facility] Glucose 124(H) 70 - 100 mg/dL 10/09/2024 8:47 AM EDT [facility] Calcium 9.0 8.6 - 10.3 mg/dL 10/09/2024 8:47 AM EDT [facility] Phosphorus 3.5 2.1 - 4.7 mg/dL 10/09/2024 8:47 AM EDT [facility] Albumin 3.4(L) 3.5 - 5.7 g/dL 10/09/2024 8:47 AM EDT [facility] Osmolality, Calculated 294 278 - 305 mOsm/kg 10/09/2024 8:47 AM EDT [facility] EGFR 26 10/09/2024 8:47 AM EDT [facility] Comment:As of 2021, [...] ORDERABLES Final Resu lt [facility] [address] [id number], [facility] * Prepare RBC, leukoreduced, 1 Units (10/09/2024 6:16 AM EDT) Product Code [id number] HCLL Unit Number [id number] HCLL Dispense Status Presumed Transfused_PT HCLL Blood Expiration Date [id number] HCLL Coding System [id number] [facility] Product Eileen Schroeder MD, PhD BLOOD BANK PRODUCT OR DERABLES Final Result [facility] * (ABNORMAL) Protime-INR (10/09/2024 4:59 AM EDT) Protime 26.5(H) 12.1 - 15.1 seconds 10/09/2024 6:30 AM EDT [facility] INR 2.4(H) 0.9 - 1.1 10/09/2024 6:30 AM EDT [facility] Comment: RECOMMENDED THERAPEUTIC RANGES USING INR : Stable oral anticoagulant therapy: 2.0 - 3.0 Mechanical prosthetic heart valve: 2.5 - 3.5 Recurrent acute myocardial infarction: 2.5 - 3.5 Plasma 10/09/2024 4:59 AM EDT 10/09/2024 5:55 AM EDT Eileen Schroeder MD, PhD LAB BLOOD ORDERABLES Final Result Performing Organization Address [facility] Co de Phone Number [facility] [address] * (ABNORMAL) Hepatic Function Panel (10/09/2024 4:59 AM EDT) Total Bilirubin 9.0(H) 0.0 - 1.5 mg/dL 10/09/2024 6:42 AM EDT [facility] Bilirubin, Direct 4.60(H) 0.00 - 0.40 mg/dL 10/09/2024 6:42 AM EDT [facility] AST 38 13 - 39 U/L 10/09/2024 6:42 AM EDT [facility] ALT 18 7 - 52 U/L 10/09/2024 6:42 AM EDT [facility] Alkaline Phosphatase 122 36 - 125 U/L 10/09/2024 6:42 AM EDT [facility] Total Protein 4.8(L) 6.4 - 8.9 g/dL 10/09/2024 6:42 AM EDT [facility] Albumin 3.4(L) 3.5 - 5.7 g/dL 10/09/2024 6:42 AM EDT [facility] Bilirubin, Indirect 4.40(H) 0.00 - 1.10 mg/dL 10/09/2024 6:42 AM EDT [facility] Plasma 10/09/2024 4:59 AM EDT 10/09/2024 5:57 AM EDT Eileen Schroeder MD, PhD LAB BLOOD ORDERABLES Final Result Performing Organization Address [facility] Co de Phone Number [facility] [address] * Magnesium (10/09/2024 4:59 AM EDT) Magnesium 1.8 1.5 - 2.5 mg/dL 10/09/2024 6:42 AM EDT [facility] Plasma 10/09/2024 4:59 AM EDT 10/09/2024 5:57 AM EDT Eileen Schroeder MD, PhD LAB BLOOD ORDERABLES Final Result Performing Organization Address [facility] Co de Phone Number [facility] [address] * (ABNORMAL) Renal Function Panel w/EGFR (10/09/2024 4:59 AM EDT) Sodium 134 133 - 146 mmol/L 10/09/2024 6:42 AM EDT [facility] Potassium 3.3(L) 3.5 - 5.3 mmol/L 10/09/2024 6:42 AM EDT [facility] Chloride 107 98 - 110 mmol/L 10/09/2024 6:42 AM EDT [facility] CO2 16(L) 21 - 33 mmol/L 10/09/2024 6:42 AM EDT [facility] Anion Gap 11 3 - 16 mmol/L 10/09/2024 6:42 AM EDT [facility] BUN 56(H) 7 - 25 mg/dL 10/09/2024 6:42 AM EDT [facility] Creatinine 2.98(H) 0.60 - 1.30 mg/dL 10/09/2024 6:42 AM EDT [facility] Glucose 112(H) 70 - 100 mg/dL 10/09/2024 6:42 AM EDT [facility] Calcium 9.0 8.6 - 10.3 mg/dL 10/09/2024 6:42 AM EDT [facility] Phosphorus 3.5 2.1 - 4.7 mg/dL 10/09/2024 6:42 AM EDT [facility] Albumin 3.4(L) 3.5 - 5.7 g/dL 10/09/2024 6:42 AM EDT [facility] Osmolality, Calculated 294 278 - 305 mOsm/kg 10/09/2024 6:42 AM EDT [facility] EGFR 26 10/09/2024 6:42 AM EDT [facility] Comment:As of 2021, [...] reported as >90mL/min/1.73m2. Reference: Luis Eduardo C, aTlia M, Olivia DC, Emerita ND, Madelyn [place], Felicia [place], et al. A Unifying Approach for GFR Estimation: Recommendations of the NKF-ASN Task Force on Reassessing the inclusion of Race in Diagnosing Kidney Disease. Am J Kidney Dis. 2020. Plasma 10/09/2024 4:59 AM EDT 10/09/2024 5:57 AM EDT Eileen Schroeder MD, PhD LAB BLOOD ORDERABLES Final Result [facility] [address] [place] [address], [facility] * (ABNORMAL) CBC (10/09/2024 4:59 AM EDT) WBC 4.6 3.8 - 10.8 10E3/uL 10/09/2024 6:21 AM EDT [facility] RBC 2.17(L) 4.20 - 5.80 10E6/uL 10/09/2024 6:21 AM EDT [facility] Hemoglobin 8.0(L) 13.2 - 17.1 g/dL 10/09/2024 6:21 AM EDT [facility] Hematocrit 21.8(L) 38.5 - 50.0 % 10/09/2024 6:21 AM EDT [facility] MCV 100.5(H) 80.0 - 100.0 fL 10/09/2024 6:21 AM EDT [facility] MCH 36.7(H) 27.0 - 33.0 pg 10/09/2024 6:21 AM EDT [facility] MCHC 36.5(H) 32.0 - 36.0 g/dL 10/09/2024 6:21 AM EDT [facility] RDW 18.1(H) 11.0 - 15.0 % 10/09/2024 6:21 AM EDT [facility] Platelets 36(L) 140 - 400 10E3/uL 10/09/2024 6:21 AM EDT [facility] Comment:Specimen checked for clots. None detected. MPV 8.3 7.5 - 11.5 fL 10/09/2024 6:21 AM EDT [facility] Whole Blood 10/09/2024 4:59 AM EDT 10/09/2024 5:56 AM EDT us Eileen Schroeder MD, PhD LAB BLOOD ORDERABLES Final Result [facility] [address] [place] [address], [facility] * Renal Tx Recipient (10/09/2024 4:59 AM EDT) [facility] Renal Transplant Recipient The request and specimen(s) for this test have been received and transported to the [facility] at [address] [place] [address]. The [facility] will report results directly to the client. 10/09/2024 7:26 AM EDT [facility] Blood 10/09/2024 4:59 AM EDT 10/09/2024 7:26 AM EDT us Aaron Gonzalez MD LAB BLOOD ORDERABLES Final Resu lt [facility] [address] * Vancomycin, random (10/09/2024 4:59 AM EDT) [facility] Vancomycin Random 11.0 ug/mL 10/09/2024 6:33 AM EDT [facility] Comment:Reference range not established for this test. Plasma 10/09/2024 4:59 AM EDT 10/09/2024 5:56 AM EDT us Jodi Ortiz PharmD LAB BLOOD ORDERABLES Final Result [facility] [address] * (ABNORMAL) CBC (10/08/2024 5:52 PM EDT) [facility] WBC 5.6 3.8 - 10.8 10E3/uL 10/08/2024 6:52 PM EDT [facility] RBC 2.38(L) 4.20 - 5.80 10E6/uL 10/08/2024 6:52 PM EDT [facility] Hemoglobin 8.3(L) 13.2 - 17.1 g/dL 10/08/2024 6:52 PM EDT [facility] Hematocrit 24.6(L) 38.5 - 50.0 % 10/08/2024 6:52 PM EDT [facility] MCV 103.2(H) 80.0 - 100.0 fL 10/08/2024 6:52 PM EDT [facility] MCH 34.7(H) 27.0 - 33.0 pg 10/08/2024 6:52 PM EDT [facility] MCHC 33.6 32.0 - 36.0 g/dL 10/08/2024 6:52 PM EDT [facility] RDW 18.5(H) 11.0 - 15.0 % 10/08/2024 6:52 PM EDT [facility] Platelets 39(L) 140 - 400 10E3/uL 10/08/2024 6:52 PM EDT [facility] Comment:CNV MPV 8.1 7.5 - 11.5 fL 10/08/2024 6:52 PM EDT [facility] Whole Blood 10/08/2024 5:52 PM EDT 10/08/2024 6:45 PM EDT us Eileen Schroeder MD, PhD LAB BLOOD ORDERABLES Final Result Performing Organization Address [facility] Co de Phone Number [facility] [address] * Transfuse RBC Has consent been obtained? Yes; Transfusion Rate: Per dept routine (10/08/2024 1:17 PM EDT) us Eileen Schroeder MD, PhD NURSING TREATMENT ORD ERABLES - BLOOD ADMIN Final Result Performing Organization Address City/[facility]/ZIP Co de Phone Number EXTERNAL * Transfuse RBC Has consent been obtained? Yes; Transfusion Rate: Per dept routine, 1 Units (10/08/2024 1:17 PM EDT) us Eileen Schroeder MD, PhD NURSING TREATMENT ORD ERABLES - BLOOD ADMIN Final Result Performing Organization Address City/[facility] Co de Phone Number EXTERNAL * (ABNORMAL) MMR(IgG) Panel (Measles, Mumps, Rubella) (10/08/2024 10:25 AM EDT) Mumps IgG Positive 10/08/2024 11:39 AM EDT [facility] MUMPS IGG NUM 99.00(H) 0.0 - 8.9 U/mL 10/08/2024 11:39 AM EDT [facility] Rubella IgG Scr Positive 10/08/2024 11:40 AM EDT [facility] RUB NUM 4.15(H) 0.00 - 0.89 INDEX 10/08/2024 11:40 AM EDT [facility] Rubeola Ab, IgG Positive 10/08/2024 11:39 AM EDT [facility] RUB IGG NUM 273.00(H) 0.00 - 13.40 U/mL 10/08/2024 11:39 AM EDT [facility] Serum 10/08/2024 10:2 5 AM EDT 10/08/2024 10:49 AM EDT Narrative [facility] - 10/08/2024 11:40 AM EDT Presence of detectable measles virus IgG antibodies. A positive result generally indicates exposure to measles virus or previous vaccination. Presence of detectable mumps virus IgG antibodies. A positive result generally indicates past exposure to mumps virus or previous vaccination. Sample is considered positive for IgG antibodies to rubella virus. us Gerri Peterson MD LAB BLOOD ORDERABLES Final Resu lt [facility] [address] [place] [id number], [facility] * (ABNORMAL) Hemoglobin A1C (10/08/2024 10:25 AM EDT) Hemoglobin A1C 3.7(L) 4.0 - 5.6 % 10/09/2024 1:22 PM EDT [facility] Comment: Hemoglobin A1c Interpretation Guidelines: Normal: [...] 5 AM EDT 10/08/2024 10:51 AM EDT us Gerri Peterson MD LAB BLOOD ORDERABLES Final Resu lt Performing Organization Address [facility]/ZIP Co de Phone Number [facility] [address] * (ABNORMAL) Vitamin D 25 Hydroxy (10/08/2024 10:25 AM EDT) Vit D, 25-Hydroxy 7.1(L) 30.0 - 100.0 ng/mL 10/08/2024 11:36 AM EDT [facility] Comment: Vitamin D deficiency has been defined by the [place] of [employer] (IOM) and an Endocrine Society practice guideline as a level of serum 25-OH Vitamin D less than 20 ng/mL. The Endocrine Society went on to further define Vitamin D insufficiency as a level between 21-29 ng/mL. 1) IOM. 2011 Dietary reference intakes for calcium and D. Majano D.C: The National Academies Press 2) Allison MF, Saturnino DELEON, Tory MILLER, et al. Evaluation, treatment, and prevention of Vitamin D deficiency: an Endocrine Society clinical practice guideline. JCEM. 2011 Nov; 96(7):1911-30. Serum 10/08/2024 10:2 5 AM EDT 10/08/2024 10:49 AM EDT us Gerri Peterson MD LAB BLOOD ORDERABLES Final Resu lt [facility] [address] [facility] * Iron Studies (Iron + TIBC) (10/08/2024 10:25 AM EDT) Iron 81 50 - 212 ug/dL 10/08/2024 11:23 AM EDT [facility] % Iron Saturation SEE COMMENT 15.0 - 55.0 % 10/08/2024 11:23 AM EDT [facility] Comment:Unable to calculate result because contributing result outside reportable range.. TIBC SEE COMMENT 261 - 462 ug/dL 10/08/2024 11:23 AM EDT [facility] Comment:Unable to calculate result because contributing result outside reportable range.. Serum 10/08/2024 10:2 5 AM EDT 10/08/2024 10:49 AM EDT Result [facility] Gerri Peterson MD LAB BLOOD ORDERABLES Final Resu lt [facility] [address] [facility] * (ABNORMAL) Ferritin (10/08/2024 10:25 AM EDT) Ferritin 706.9(H) 23.9 - 336.2 ng/mL 10/08/2024 11:35 AM EDT [facility] Serum 10/08/2024 10:2 5 AM EDT 10/08/2024 10:49 AM EDT Result [facility] Gerri Peterson MD LAB BLOOD ORDERABLES Final Resu lt Performing Organization Address City/[facility]/ZIP Co de Phone Number [facility] [address] [facility] * QuantiFERON TB2 Ag (10/08/2024 10:25 AM EDT) QuantiFERON TB2 Ag Value 0.07 10/10/2024 10:41 AM EDT [facility] Plasma 10/08/2024 10:2 5 AM EDT 10/08/2024 11:05 AM EDT Result [facility] Gerri Peterson MD LAB BLOOD ORDERABLES Final Resu lt [facility] [address] * QuantiFERON TB1 Ag (10/08/2024 10:25 AM EDT) QuantiFERON TB1 Ag Value 0.06 10/10/2024 10:41 AM EDT [facility] Plasma 10/08/2024 10:2 5 AM EDT 10/08/2024 11:05 AM EDT Gerri Peterson MD LAB BLOOD ORDERABLES Final Resu lt Performing Organization Address [facility]/ZIP Co de Phone Number [facility] [address] [facility] * QuantiFERON Nil (10/08/2024 10:25 AM EDT) QuantiFERON Nil 0.06 10:41 AM EDT [facility] Plasma 10/08/2024 10:2 5 AM EDT 10/08/2024 11:05 AM EDT Result [facility] Gerri Peterson MD LAB BLOOD ORDERABLES Final Resu lt Performing Organization Address [facility] de Phone Number [facility] [address] [facility] * QuantiFERON Mitogen (10/08/2024 10:25 AM EDT) QuantiFERON Interpretation Negative Negative 10/10/2024 10:41 AM EDT [facility] Comment:Negative result geovanny cates M. tuberculosis infection is NOT likely. Negative results do not preclude tuberculosis infection (especially in immunosuppressed patients). Negative results have a TB antigen minus Nil value less than 0.35 IU/mL. In cases with high suspicion of disease, retesting or additional testing with medical evaluation may be useful. QuantiFERON Mitogen 4.87 10/10 10:41 AM EDT [facility] Plasma 10/08/2024 10:2 5 AM EDT 10/08/2024 11:05 AM EDT Narrative [facility] - 10/10/2024 10:41 AM EDT [...] especially in immunosuppressed states. Please see www.cdc.gov/tb. Result [facility] Gerri Peterson MD LAB BLOOD ORDERABLES Final Resu lt Performing Organization Address City/[facility] Co de Phone Number [facility] [address] [place] * Reticulocyte Count, Auto (10/08/2024 7:41 AM EDT) Retic Ct Pct 1.35 0.50 - 2.00 % 10/08/2024 9:12 AM EDT [facility] Retic Ct Abs 26,190 25,000 - 90,000 /uL 10/08/2024 9:14 AM EDT [facility] Immature Retic Fract 0.37 0.09 - 0.56 10/08/2024 9:12 AM EDT [facility] Whole Blood 10/08/2024 7:41 AM EDT 10/08/2024 8:51 AM EDT Result [facility] Angie Blanchard MD LAB BLOOD ORDERABLES Final Res ult Performing Organization Address [facility] Co de Phone Number [facility] [address] [place] * (ABNORMAL) Haptoglobin (10/08/2024 7:41 AM EDT) Haptoglobin <30(L) 44 - 215 mg/dL 10/08/2024 8:53 AM EDT [facility] Serum 10/08/2024 7:41 AM EDT 10/08/2024 7:51 AM EDT Result [facility] Eileen Schroeder MD, PhD LAB BLOOD ORDERABLES Final Result Performing Organization Address City/[facility] Co de Phone Number [facility] [address] * (ABNORMAL) CBC - Post Transfusion (10/08/2024 7:41 AM EDT) WBC 3.7(L) 3.8 - 10.8 10E3/uL 10/08/2024 8:34 AM EDT [facility] RBC 1.94(L) 4.20 - 5.80 10E6/uL 10/08/2024 8:34 AM EDT [facility] Hemoglobin 7.1(L) 13.2 - 17.1 g/dL 10/08/2024 8:34 AM EDT [facility] Hematocrit 20.0(L) 38.5 - 50.0 % 10/08/2024 8:34 AM EDT [facility] MCV 103.1(H) 80.0 - 100.0 fL 10/08/2024 8:34 AM EDT [facility] MCH 36.5(H) 27.0 - 33.0 pg 10/08/2024 8:34 AM EDT [facility] MCHC 35.4 32.0 - 36.0 g/dL 10/08/2024 8:34 AM EDT [facility] RDW 17.2(H) 11.0 - 15.0 % 10/08/2024 8:34 AM EDT [facility] Platelets 37(L) 140 - 400 10E3/uL 10/08/2024 8:34 AM EDT [facility] Comment: Specimen checked for clots. None detected. Slide Reviewed for PLT Clumps. None Seen. _Platelet Morphology Normal _Platelets Appear Decreased MPV 8.7 7.5 - 11.5 fL 10/08/2024 8:34 AM EDT [facility] Whole Blood 10/08/2024 7:41 AM EDT 10/08/2024 7:52 AM EDT Narrative [facility] - 10/08/2024 8:34 AM EDT Post-transfusion us Eileen Schroeder MD, PhD LAB BLOOD ORDERABLES Final Result [facility] [address] * Antibody Screen (10/08/2024 7:41 AM EDT) Antibody Screen Negative 10/08/2024 8:26 AM EDT [facility] Blood 10/08/2024 7:41 AM EDT 10/08/2024 7:57 AM EDT Narrative [facility] - 10/08/2024 8:32 AM EDT Testing performed by [facility] Transfusion Service Eileen Schroeder MD, PhD BLOOD BANK TEST ORDER PAL Final Result [facility] [address] * ABO/Rh (10/08/2024 7:41 AM EDT) ABO Grouping O 10/08/2024 8:14 AM EDT [facility] Rh Type Positive 10/08/2024 8:14 AM EDT [facility] Blood 10/08/2024 7:41 AM EDT 10/08/2024 7:57 AM EDT Eileen Schroeder MD, PhD BLOOD BANK TEST ORDER PAL Final Result [facility] [address] * (ABNORMAL) Lactate dehydrogenase (10/08/2024 5:36 AM EDT) LD 102(L) 110 - 270 U/L 10/08/2024 8:20 AM EDT [facility] Plasma 10/08/2024 5:36 AM EDT 10/08/2024 7:58 AM EDT Angie Blanchard MD LAB BLOOD ORDERABLES Final Res ult [facility] [address] * (ABNORMAL) Protime-INR (10/08/2024 5:36 AM EDT) Protime 26.9(H) 12.1 - 15.1 seconds 10/08/2024 6:11 AM EDT [facility] INR 2.4(H) 0.9 - 1.1 10/08/2024 6:11 AM EDT [facility] Comment: RECOMMENDED THERAPEUTIC RANGES USING INR : Stable oral anticoagulant therapy: 2.0 - 3.0 Mechanical prosthetic heart valve: 2.5 - 3.5 Recurrent acute myocardial infarction: 2.5 - 3.5 Plasma 10/08/2024 5:36 AM EDT 10/08/2024 5:52 AM EDT us Eileen Schroeder MD, PhD LAB BLOOD ORDERABLES Final Result Performing Organization Address City/State/[facility] Co de Phone Number [facility] [address] * (ABNORMAL) Hepatic Function Panel (10/08/2024 5:36 AM EDT) Total Bilirubin 7.7(H) 0.0 - 1.5 mg/dL 10/08/2024 6:25 AM EDT [facility] Bilirubin, Direct 4.28(H) 0.00 - 0.40 mg/dL 10/08/2024 6:25 AM EDT [facility] AST 34 13 - 39 U/L 10/08/2024 6:25 AM EDT [facility] ALT 16 7 - 52 U/L 10/08/2024 6:25 AM EDT [facility] Alkaline Phosphatase 103 36 - 125 U/L 10/08/2024 6:25 AM EDT [facility] Total Protein 4.7(L) 6.4 - 8.9 g/dL 10/08/2024 6:25 AM EDT [facility] Albumin 3.5 3.5 - 5.7 g/dL 10/08/2024 6:25 AM EDT [facility] Bilirubin, Indirect 3.42(H) 0.00 - 1.10 mg/dL 10/08/2024 6:25 AM EDT [facility] Plasma 10/08/2024 5:36 AM EDT 10/08/2024 5:52 AM EDT Eileen Schroeder MD, PhD LAB BLOOD ORDERABLES Final Result Performing Organization Address City/[facility]/ZIP Co de Phone Number [facility] [address] * Magnesium (10/08/2024 5:36 AM EDT) Magnesium 1.9 1.5 - 2.5 mg/dL 10/08/2024 6:25 AM EDT [facility] Plasma 10/08/2024 5:36 AM EDT 10/08/2024 5:52 AM EDT Eileen Schroeder MD, PhD LAB BLOOD ORDERABLES Final Result Performing Organization Address [facility] Co de Phone Number [facility] [address] * (ABNORMAL) Renal Function Panel w/EGFR (10/08/2024 5:36 AM EDT) Sodium 135 133 - 146 mmol/L 10/08/2024 6:25 AM EDT [facility] Potassium 3.2(L) 3.5 - 5.3 mmol/L 10/08/2024 6:25 AM EDT [facility] Chloride 106 98 - 110 mmol/L 10/08/2024 6:25 AM EDT [facility] CO2 17(L) 21 - 33 mmol/L 10/08/2024 6:25 AM EDT [facility] Anion Gap 12 3 - 16 mmol/L 10/08/2024 6:25 AM EDT [facility] BUN 61(H) 7 - 25 mg/dL 10/08/2024 6:25 AM EDT [facility] Creatinine 3.10(H) 0.60 - 1.30 mg/dL 10/08/2024 6:25 AM EDT [facility] Glucose 106(H) 70 - 100 mg/dL 10/08/2024 6:25 AM EDT [facility] Calcium 9.0 8.6 - 10.3 mg/dL 10/08/2024 6:25 AM EDT [facility] Phosphorus 4.0 2.1 - 4.7 mg/dL 10/08/2024 6:25 AM EDT [facility] Albumin 3.5 3.5 - 5.7 g/dL 10/08/2024 6:25 AM EDT [facility] Osmolality, Calculated 298 278 - 305 mOsm/kg 10/08/2024 6:25 AM EDT [facility] EGFR 10/08/2024 6:25 AM EDT [facility] Comment:As of 2021, [...] MD, PhD LAB BLOOD ORDERABLES Final Result [facility] [address] [place] [address], [facility] * (ABNORMAL) CBC (10/08/2024 5:36 AM EDT) WBC 3.2(L) 3.8 - 10.8 10E3/uL 10/08/2024 6:41 AM EDT [facility] RBC 1.86(L) 4.20 - 5.80 10E6/uL 10/08/2024 6:41 AM EDT [facility] Hemoglobin 6.9(L) 13.2 - 17.1 g/dL 10/08/2024 6:41 AM EDT [facility] Hematocrit 18.9(L) 38.5 - 50.0 % 10/08/2024 6:41 AM EDT [facility] MCV 101.6(H) 80.0 - 100.0 fL 10/08/2024 6:41 AM EDT [facility] MCH 36.9(H) 27.0 - 33.0 pg 10/08/2024 6:41 AM EDT [facility] MCHC 36.3(H) 32.0 - 36.0 g/dL 10/08/2024 6:41 AM EDT [facility] RDW 17.0(H) 11.0 - 15.0 % 10/08/2024 6:41 AM EDT [facility] Platelets 34(L) 140 - 400 10E3/uL 10/08/2024 6:41 AM EDT [facility] Comment: Specimen checked for clots. None detected. Slide Reviewed for PLT Clumps. None Seen. Platelet Estimate Decreased 10/08/2024 6:41 AM EDT [facility] MPV 8.4 7.5 - 11.5 fL 10/08/2024 6:41 AM EDT [facility] Whole Blood 10/08/2024 5:36 AM EDT 10/08/2024 5:53 AM EDT Narrative [facility] - 10/08/2024 6:41 AM EDT Peripheral blood smear was scanned per review criteria approved by the laboratory medical records clerk. us Eileen Schroeder MD, PhD LAB BLOOD ORDERABLES Final Result [facility] [address] [place] [address], [facility] * Vancomycin, random (10/08/2024 5:36 AM EDT) Vancomycin Random 16.0 ug/mL 10/08/2024 6:20 AM EDT [facility] Comment:Reference range not established for this test. Plasma 10/08/2024 5:36 AM EDT 10/08/2024 5:52 AM EDT us Jodi Ortiz PharmD LAB BLOOD ORDERABLES Final Result Performing Organization Address City/[facility]/ZIP Co de Phone Number [facility] [facility] [address] * Urine Drug Confirmation (10/07/2024 10:50 PM EDT) BARBITURATES NOT PRESENT 10/09/2024 1:33 PM EDT [facility] BENZODIAZEPINES PRESENT 1:33 PM EDT [facility] Nordiazepam 3 ng/mL 10/09/2024 1:33 PM EDT [facility] Temazepam 6 ng/mL 10/09/2024 1:33 PM EDT [facility] CANNABINOIDS NOT PRESENT 10/09/2024 1:33 PM EDT [facility] LAB SPECIALIST STIMULANTS NOT PRESENT 1:33 PM EDT [facility] OPIOID ANALGESICS PRESENT 025 1:33 PM EDT [facility] Oxycodone 300 ng/mL 10/09/2024 1:33 PM EDT [facility] Oxymorphone 32 ng/mL 10/09/2024 1:33 PM EDT [facility] Tramadol >1000 ng/mL 10/09/2024 1:33 PM EDT [facility] OPIOID ANTAGONISTS NOT PRESENT 10/09 1:33 PM EDT [facility] SEDATIVES/MUSCLE RELAXANTS NOT PRESENT 10/09/2024 1:33 PM EDT [facility] TRICYCLIC ANTIDEPRESSANTS NOT PRESENT 10/09/2024 1:33 PM EDT [facility] Urine 10/07/2024 10:5 0 PM EDT 10/08/2024 3:00 AM EDT us Gerri Peterson MD URINE ORDERABLES Final Result Performing Organization Address [facility] Co de Phone Number [facility] [address] * Giardia Cryptosporidium Antigens (10/07/2024 10:50 PM EDT) Cryptosporidium Ag Negative Negative 2024 7:59 AM EDT [facility] Giardia Ag Negative Negative 10/08/2024 7:59 AM EDT [facility] Comment: Detection of Giardia and Cryptosporidium antigen is more sensitive and specific than microscopy. Because antigens are shed continuously, repeat testing is rarely warranted. Feces 10/07/2024 10:5 0 PM EDT 10/08/2024 1:53 AM EDT Comment:F Bisi Hernandez DO MICROBIOLOGY - GENERAL ORDERABLE S Final Result [facility] [address] [place] [address], [facility] * (ABNORMAL) Urine Drug Screen Reflex to Confirmation (10/07/2024 10:50 PM EDT) Amphetamine, 500 ng/mL Cutoff Negative Negative 10/08/2024 3:00 AM EDT [facility] Barbiturates UR, 300 ng/mL Cutoff Negative Negative 10/08/2024 3:00 AM EDT [facility] Buprenorphine, 5 ng/mL Cutoff Negative Negative 10/08/2024 3:00 AM EDT [facility] Benzodiazepines UR, 300 ng/mL Cutoff Negative Negative 10/08/2024 3:00 AM EDT [facility] Cocaine UR, 300 ng/mL Cutoff Negative Negative 10/08/2024 3:00 AM EDT [facility] Methadone, UR, 300 ng/mL Cutoff Negative Negative 10/08/2024 3:00 AM EDT [facility] Opiates UR, 300 ng/mL Cutoff Negative Negative 10/08/2024 3:00 AM EDT [facility] Oxycodone, 100 ng/mL Cutoff Presumptive Positive(A) Negative 10/08/2024 3:00 AM EDT [facility] Tricyclic Antidepressants, 300 ng/mL Cutoff Negative Negative 10/08/2024 3:00 AM EDT [facility] Comment:This test has been d eveloped and its performance characteristics determined by [facility] which is certified under the [...] Cutoff Negative Negative 10/08/2024 3:00 AM EDT [facility] Comment:This is a screening method only and may be associated with false positive and/or false negative results. Results are not definitive without additional confirmatory testing by mass spectrometry. Fentanyl, 2 ng/mL Cutoff Negative Negative 10/08/2024 3:00 AM EDT [facility] Comment:This test has been d eveloped and its performance characteristics determined by [facility] which is certified under the [...] PM EDT 10/08/2024 2:08 AM EDT Narrative [facility] - 10/08/2024 3:00 AM EDT CONFIRMATION TO FOLLOW Gerri Peterson MD URINE ORDERABLES Final Result [facility] [address] [id number], [facility] * Comprehensive Drug Screen (10/07/2024 10:50 PM EDT) Creatinine, Ur CANCELED mg/dL 10/08/2024 7:09 AM EDT [facility] Comment:The released value 8 7.30 was canceled by YAQUELIN on 10/08/2024 07:09 BARBITURATES CANCELED [facility] Butalbital [facility] Phenobarbital [facility] Secobarbital [facility] BENZODIAZEPINES [facility] Alprazolam [facility] Clonazepam [facility] Diazepam [facility] Alpha-Hydroxyalprazo mcknight [facility] Lorazepam [facility] Midazolam [facility] Nordiazepam CANCELED [facility] Oxazepam CANCELED [facility] Temazepam CANCELED [facility] CANNABINOIDS CANCELED [facility] THC-COOH CANCELED [facility] LAB SPECIALIST STIMULANTS CANCELED [facility] Cocaine Metabolite(benzoylec gonine) CANCELED [facility] Amphetamine CANCELED [facility] Methamphetamine CANCELED [facility] MDA CANCELED [facility] MDEA CANCELED [facility] Phencyclindine (PCP) CANCELED [facility] OPIOID ANALGESICS CANCELED [facility] Heroin Metabolite(6-RAMONA) CANCELED [facility] Codeine CANCELED [facility] Morphine CANCELED [facility] Hydrocodone CANCELED [facility] Hydromorphone CANCELED [facility] Oxycodone CANCELED [facility] Oxymorphone CANCELED [facility] Meperidine CANCELED [facility] Normeperidine CANCELED [facility] Methadone CANCELED [facility] Methadone Metabolite (EDDP) CANCELED [facility] Tramadol CANCELED [facility] Fentanyl CANCELED [facility] Norfentanyl CANCELED [facility] Sufentanil CANCELED [facility] OPIOID ANTAGONISTS CANCELED [facility] Buprenorphine CANCELED [facility] Norbuprenorphine CANCELED [facility] Naltrexone CANCELED [facility] Naloxone CANCELED [facility] SEDATIVES/MUSCLE RELAXANTS CANCELED [facility] Carisoprodol CANCELED [facility] Meprobamate CANCELED [facility] TRICYCLIC ANTIDEPRESSANTS CANCELED [facility] Amitriptyline CANCELED [facility] Clomipramine CANCELED [facility] Desipramine CANCELED [facility] Doxepin CANCELED [facility] Imipramine CANCELED [facility] Nortriptyline CANCELED [facility] Urine Creatinine CANCELED mg/dL [facility] Nitrite CANCELED [facility] Glutaraldehyde CANCELED [facility] pH CANCELED 10/08/2024 7:09 AM EDT [facility] Comment:The released value 5 .6 was canceled by YAQUELIN on 10/08/2024 07:09 Specific Myrtle CANCELED 10/09/19 7:09 AM EDT [facility] Comment:The released value 1 .009 was canceled by YAQUELIN on 10/08/2024 07:09 Bleach CANCELED [facility] Pyridinium Chlorochromate CANCELED [facility] Urine 10/07/2024 10:5 0 PM EDT 10/08/2024 2:07 AM EDT Narrative [facility] - 10/08/2024 7:09 AM EDT See accn [id number] Gerri Peterson MD URINE ORDERABLES Edited Result - Final Performing Organization Address [facility] Co de Phone Number [facility] [address] [facility]. [address] * Ova and Parasite Comprehensive w/ Giardia/Crypto (10/07/2024 10:50 PM EDT) O & P Method: Concentration and Trichrome Stain [facility] Results No Amoeba, Ova, Or Parasites Seen. -- O and P examination of additional specimens is recommended only for symptomatic patients, immunosuppressed patients or those with an appropriate travel history. [facility] Feces FECES / Unknown 10/07/2024 1 0:50 PM EDT 10/08/2024 1:53 AM EDT Comment:F Bisi Hernandez DO MICROBIOLOGY - GENERAL ORDERABLE S Final Result Performing Organization Address [facility] Co de Phone Number [facility] [address] [facility]. [address] * Enteric Pathogen Panel (10/07/2024 10:50 PM EDT) Campylobacter Group (C. ecoli, C. jejuni, C. trino) Not Detected Not Detected 10/08/2024 4:40 AM EDT [facility] Salmonella species Not Detected Not Detected 10/08/2024 4:40 AM EDT [facility] Shigella species Not Detected Not Detected 10/08/2024 4:40 AM EDT [facility] Vibrio Group (Vibrio cholerae, Vibrio parahaemolyticus) Not Detected Not Detected 10/08/2024 4:40 AM EDT [facility] Yersinia enterocolitica Not Detected Not Detected 10/08/2024 4:40 AM EDT [facility] Shiga toxin 1 Not Detected Not Detected 10/08/2024 4:40 AM EDT [facility] Shiga toxin 2 Not Detected Not Detected 10/08/2024 4:40 AM EDT [facility] Norovirus Not Detected Not Detected 10/08/2024 4:40 AM EDT [facility] Rotavirus Not Detected Not Detected 10/08/2024 4:40 AM EDT [facility] Comment: The Enteric Pathogen Panel [...] FLUIDS AND STOOLS ORDERABLE S Final Result [facility] [address] [place] [address], [facility] * Hepatitis C Antibody (10/07/2024 6:38 PM EDT) HCV Ab Nonreactive Nonreactive 10/07/2024 7:56 PM EDT [facility] Comment:Health Department no tified in accordance with reportable infectious disease guidelines. Serum 10/07/2024 6:38 PM EDT 10/07/2024 6:52 PM EDT Narrative [facility] - 10/07/2024 7:56 PM EDT Antibodies to HCV not detected; does not exclude the possibility of exposure to HCV. Gerri Peterson MD LAB BLOOD ORDERABLES Final Resu lt Performing Organization Address City/[facility]/ZIP Co de Phone Number [facility] [address] * Hepatitis B Surface Antibody, Quantitati (10/07/2024 6:38 PM EDT) Hep B S Ab Nonreactive Nonreactive 10/07/2024 8:00 PM EDT [facility] HBSAB NUMBER 7.88 0.00 - 7.99 mIU/mL 10/07/2024 8:00 PM EDT [facility] Serum 10/07/2024 6:38 PM EDT 10/07/2024 6:52 PM EDT [facility] - 10/07/2024 8:00 PM EDT Individual is considered not immune to HBV infection. Gerri Peterson MD LAB BLOOD ORDERABLES Final Resu lt Performing Organization Address [facility] Co de Phone Number [facility] [address] [facility]. [address] * Hepatitis B surface antigen (10/07/2024 6:38 PM EDT) Hep B Surface Ag Nonreactive Nonreactive 10/07/2024 7:51 PM EDT [facility] Comment:Health Department no tified in accordance with reportable infectious disease guidelines. Serum 10/07/2024 6:38 PM EDT 10/07/2024 6:52 PM EDT [facility] - 10/07/2024 7:51 PM EDT Specimen is considered negative for HBsAg. Gerri Peterson MD LAB BLOOD ORDERABLES Final Resu lt Performing Organization Address City/[facility] Co de Phone Number [facility] [address] [facility]. [address] * Hepatitis A Antibody Total (10/07/2024 6:38 PM EDT) Anti-HAV Total (IgG + IgM) Nonreactive 10/07/2024 7:53 PM EDT [facility] Serum 10/07/2024 6:38 PM EDT 10/07/2024 6:52 PM EDT Narrative [facility] - 10/07/2024 7:53 PM EDT HAV antibodies not detected Gerri Peterson MD LAB BLOOD ORDERABLES Final Resu lt Performing Organization Address [facility]/ZIP Co de Phone Number [facility] [address] [facility]. [address] * Hepatitis A IgM (10/07/2024 6:38 PM EDT) Hep A IgM Nonreactive Nonreactive 10/07/2024 7:46 PM EDT [facility] Serum 10/07/2024 6:38 PM EDT 10/07/2024 6:52 PM EDT [facility] - 10/07/2024 7:46 PM EDT IgM anti-HAV not detected. Does not exclude the possibility of exposure to or infection with HAV. Levels of IgM anti-HAV may be below the cut-off in early infection. Gerri Peterson MD LAB BLOOD ORDERABLES Final Resu lt Performing Organization Address [facility] Co de Phone Number [facility] [address] * (ABNORMAL) Lipid Profile (10/07/2024 6:37 PM EDT) Non-HDL Cholesterol, Calculated See Note 0 - 129 mg/dL 10/07/2024 7:42 PM EDT [facility] Comment: Desirable: < 130 mg/dL Above Desirable: 130-159 mg/dL Borderline High: 160-189 mg/dL High: 190-219 mg/dL Very High: > 219 mg/dL Unable to calculate result either because contributing result(s) are outside of reportable range or are not available. Cholesterol, Total <25 0 - 200 mg/dL 10/07/2024 7:42 PM EDT [facility] Triglycerides 30 10 - 149 mg/dL 10/07/2024 7:42 PM EDT [facility] HDL 4(L) 60 - 92 mg/dL 10/07/2024 7:42 PM EDT [facility] Comment: LIPID PROFILE INTERPRETATION CHOLESTEROL,TOTAL(mg/dL) DESIRABLE: [...] Cholesterol See Note mg/dL 7:42 PM EDT [facility] Comment:Unable to calculate result either because contributing result(s) are outside of reportable range or are not available. Plasma 10/07/2024 6:37 PM EDT 10/07/2024 7:06 PM EDT Narrative [facility] - 10/07/2024 7:42 PM EDT LDL cholesterol calculated using the Friedewald equation. us Gerri Peterson MD LAB BLOOD ORDERABLES Final Resu lt [facility] [address] [place] [address], [facility] * (ABNORMAL) Alpha 1 Antitrypsin AAT Quant & Mutation (10/07/2024 6:37 PM EDT) A-1 Antitrypsin 99(L) 101 - 187 mg/dL 10/09/2024 4:28 AM EDT [facility] A-1 Antitrypsin Pheno Comment 10/10/2024 4:05 PM EDT [facility] Comment: A1A Phenotype is consistent with a heterozygous phenotype consisting of one M (normal) allele and one allele that cannot be identified at this time. The unknown allele is not consistent with Z (deficient), S (deficient), or F (deficient). MM Phenotype is considered to be normal , producing normal serum levels of vlmyy-6-bbzvikdo inhibitor and not associated with clinical disease. [...] PM EDT 10/10/2024 4:08 PM EDT Narrative [facility] - 10/10/2024 4:08 PM EDT PERFORMED AT: [facility] [address] [id number] SERVICE STATION OPERATOR: Bassam Khalil, PhD PHONE: [phone] PERFORMED AT: [facility] [address] [id number] SERVICE STATION OPERATOR: Mandy Abdul MD PHONE: [phone] us Gerri Peterson MD LAB BLOOD ORDERABLES Final Resu lt [facility] [address] * (ABNORMAL) CMV IgG Antibody (10/07/2024 6:37 PM EDT) CMV IgG Positive(A ) Negative 10/07/2024 8:26 PM EDT [facility] CMV IGG NUM 8.40(H) 0.00 - 0.59 U/mL 10/07/2024 8:26 PM EDT [facility] Serum 10/07/2024 6:37 PM EDT 10/07/2024 6:50 PM EDT Gerri Peterson MD LAB BLOOD ORDERABLES Final Resu lt [facility] [address] [facility]. [address] * HIV-1 and HIV-2 Antibodies w Reflex (10/07/2024 6:37 PM EDT) HIV 1+2 AB/AGN Nonreactive Nonreactive 10/07/2024 7:54 PM EDT [facility] Serum 10/07/2024 6:37 PM EDT 10/07/2024 7:06 PM EDT Narrative [facility] - 10/07/2024 7:54 PM EDT \HIVRNR Gerri Peterson MD LAB BLOOD ORDERABLES Final Resu lt [facility] [address] [facility]. [address] * TSH (Thyroid Stimulating Hormone) (10/07/2024 6:37 PM EDT) TSH 0.81 0.45 - 4.12 uIU/mL 10/07/2024 8:17 PM EDT [facility] Serum 10/07/2024 6:37 PM EDT 10/07/2024 6:50 PM EDT Result [facility] Gerri Peterson MD LAB BLOOD ORDERABLES Final Resu lt [facility] [address] [facility]. [address] * Katie-Watkins virus early antigen antibody, IgG (10/07/2024 6:37 PM EDT) EBV Early Antigen Ab, IgG <9.0 0.0 - 8.9 U/mL 10/09/2024 2:16 PM EDT [facility] Comment: Negative < 9.0 Equivocal 9.0 - 10.9 Positive >10.9 Serum Frozen 10/07/2024 6:37 PM EDT 10/09/2024 3:07 PM EDT Narrative [facility] - 10/09/2024 3:07 PM EDT PERFORMED AT: [address] [id number] SERVICE STATION OPERATOR: Bassam Khalil, PhD PHONE: [phone] Gerri Peterson MD LAB BLOOD ORDERABLES Final Resu lt Performing Organization Address [facility] Co de Phone Number [facility] [address] * (ABNORMAL) Varicella zoster antibody, IgG (10/07/2024 6:37 PM EDT) Varicella IgG Positive( A) Negative S/CO 10/07/2024 8:34 PM EDT [facility] Comment:Result indicates the presence of detectable VZV IgG antibodies. A positive result is generally indicative of exposure to the pathogen or administration of specific immunoglobulins, but it is no indication of active infection or stage of disease. This test is not approved for determining vaccine-induced immunity to varicella zoster virus. VZV NUM 6.76(H) 0.00 - 0.99 S/CO 10/07/2024 8:34 PM EDT [facility] Serum 10/07/2024 6:37 PM EDT 10/07/2024 6:50 PM EDT Gerri Peterson MD LAB BLOOD ORDERABLES Final Resu lt Performing Organization Address City/[facility]/ZIP Co de Phone Number [facility] [address] * Toxoplasma gondii antibody, IgG (10/07/2024 6:37 PM EDT) Toxoplasma Gondii IgG <3.0 0.0 - 7.1 IU/mL 10/09/2024 7:53 AM EDT [facility] Comment: Negative <7.2 Equivocal 7.2 - 8.7 Positive >8.7 Serum 10/07/2024 6:37 PM EDT 10/09/2024 8:07 AM EDT Narrative [facility] - 10/09/2024 8:07 AM EDT PERFORMED AT: [facility] [address] [id number] SERVICE STATION OPERATOR: Bassam Khalil, PhD PHONE: [phone] Gerri Peterson MD LAB BLOOD ORDERABLES Final Resu lt Performing Organization Address City/[facility]/ZIP Co de Phone Number [facility] [address] [facility]. [address] * Syphilis Screening (Trepia) (10/07/2024 6:37 PM EDT) Treponema Pallidum Negative Negative 10/07/2024 8:27 PM EDT [facility] Comment: No serological evidence of infection with Treponema pallidum (incubating or early primary syphilis cannot be excluded). Serum 10/07/2024 6:37 PM EDT 10/07/2024 6:50 PM EDT Gerri Peterson MD LAB BLOOD ORDERABLES Final Resu lt Performing Organization Address City/[facility]/ZIP Co de Phone Number [facility] [address] [facility]. [address] * Strongyloides Ab (10/07/2024 6:37 PM EDT) Strongyloides Ab Negative Negative 10/11/19 11:51 AM EDT [facility] Serum 10/07/2024 6:37 PM EDT 10/10/2024 12:07 PM EDT Narrative [facility] - 10/10/2024 12:07 PM EDT PERFORMED AT: [facility] [address] [id number] SERVICE STATION OPERATOR: Mandy Abdul MD PHONE: [phone] us Gerri Peterson MD LAB BLOOD ORDERABLES Final Resu lt [facility] [address] [place] [address], [facility] * Phosphatidylethanol Confirmation, B (10/07/2024 6:37 PM EDT) PETH 16:0/18.1 (POPETH) <10 Cutoff: 10 ng/mL 10/10/2024 10:42 AM EDT [facility] Comment: Phosphatidylethanol (PEth) [...] Cutoff: 10 ng/mL 10/10/2024 10:42 AM EDT [facility] Comment: PEth 16:0/18:2 (PLPEth) Reference ranges are not well established PEth Interpretation Negative. 10/10 10:42 AM EDT [facility] Comment: ADDITIONAL INFORMATION This report is intended for use in clinical monitoring and management of patients. It is not intended for use in employment-related testing. This test was developed and its performance characteristics determined by [facility] in a manner consistent with CLIA requirements. This test has not been cleared or approved by the U.S. Food and Drug Administration. Test Performed by: [address] [place] [address] Supervisor Intermediates: Kathy Ortiz Ph.D.; CLIA# [id number] Whole Blood 10/07/2024 6:37 PM EDT 10/10/2024 10:42 AM EDT Gerri Peterson MD LAB BLOOD ORDERABLES Final Resu lt [facility] [address] * (ABNORMAL) MMR(IgG) Panel (Measles, Mumps, Rubella) (10/07/2024 6:37 PM EDT) Mumps IgG Positive 10/07/2024 8:26 PM EDT [facility] MUMPS IGG NUM 77.80(H) 0.0 - 8.9 U/mL 10/07/2024 8:26 PM EDT [facility] Rubella IgG Scr Positive 10/07/2024 8:28 PM EDT [facility] RUB NUM 3.04(H) 0.00 - 0.89 INDEX 10/07/2024 8:28 PM EDT [facility] Rubeola Ab, IgG Positive 10/07/2024 8:26 PM EDT [facility] RUB IGG NUM 192.00(H) 0.00 - 13.40 U/mL 10/07/2024 8:26 PM EDT [facility] Serum 10/07/2024 6:37 PM EDT 10/07/2024 6:50 PM EDT Narrative [facility] - 10/07/2024 8:28 PM EDT Presence of detectable measles virus IgG antibodies. A positive result generally indicates exposure to measles virus or previous vaccination. Presence of detectable mumps virus IgG antibodies. A positive result generally indicates past exposure to mumps virus or previous vaccination. Sample is considered positive for IgG antibodies to rubella virus. us Gerri Peterson MD LAB BLOOD ORDERABLES Final Resu lt [facility] [address] * IgA (10/07/2024 6:37 PM EDT) IgA 227.0 70.0 - 400.0 mg/dL 10/08/2024 11:07 AM EDT [facility] Comment:Please interpret the se findings in conjunction with clinical findings, protein electrophoresis, and immunotyping/immunofixation results. Serum 10/07/2024 6:37 PM EDT 10/07/2024 6:50 PM EDT Result [facility] Gerri Peterson MD LAB BLOOD ORDERABLES Final Resu lt Performing Organization Address City/[facility]/ZIP Co de Phone Number [facility] [address] [facility]. [address] * Ethanol, Serum (10/07/2024 6:37 PM EDT) Ethanol <10 0 - 10 mg/dL 10/07/2024 8:36 PM EDT [facility] Serum 10/07/2024 6:37 PM EDT 10/07/2024 6:50 PM EDT Result [facility] Gerri Peterson MD LAB BLOOD ORDERABLES Final Resu lt Performing Organization Address [facility]/ZIP Co de Phone Number [facility] [address] [facility] * ABO/Rh - Second (10/07/2024 6:37 PM EDT) ABO Grouping O 10/07/2024 7:16 PM EDT [facility] Rh Type Positive 10/07/2024 7:16 PM EDT [facility] Blood 10/07/2024 6:37 PM EDT 10/07/2024 6:56 PM EDT Narrative [facility] - 10/07/2024 7:18 PM EDT This is not a duplicate order. It is required that ABO be drawn twice for LIVER TRANSPLANT Result [facility] Gerri Peterson MD BLOOD BANK TEST ORDERABLES Denisse l Result Performing Organization Address City/[facility]/ZIP Co de Phone Number [facility] [address] [facility]. [address] * ABO/Rh- Initial (10/07/2024 6:37 PM EDT) ABO Grouping O 10/07/2024 7:59 PM EDT [facility] Rh Type Positive 10/07/2024 7:59 PM EDT [facility] Blood 10/07/2024 6:37 PM EDT 10/07/2024 7:25 PM EDT Gerri Peterson MD BLOOD BANK TEST ORDERABLES Denisse l Result [facility] [address] [place] [address] * X-ray Mandible minimum 4-views (10/07/2024 6:19 [...] Devlin MD at 10/08/2024 1:12 PM EDT us Gerri Peterson MD IMG DIAGNOSTIC IMAGING ORDERABL ES Final [...] EXAM: US ABDOMEN COMPLETE EXAM: US DUPLEX [id number] COMPLETE INDICATION: elevated bilirubin COMPARISON: Ultrasound and [...] EXAM: US ABDOMEN COMPLETE EXAM: US DUPLEX [id number] COMPLETE INDICATION: elevated bilirubin COMPARISON: Ultrasound and [...] 4:26 PM EDT us Bisi Hernandez DO [facility] US ORDERABLES Final Result * US Duplex Ofx-[id number]-[id number] Comp (10/07/2024 3:48 PM EDT) Anatomical Region [...] EXAM: US ABDOMEN COMPLETE EXAM: US DUPLEX [id number] COMPLETE INDICATION: elevated bilirubin COMPARISON: Ultrasound and [...] EXAM: US ABDOMEN COMPLETE EXAM: US DUPLEX [id number] COMPLETE INDICATION: elevated bilirubin COMPARISON: Ultrasound and [...] 4:26 PM EDT us Bisi Hernandez DO IMG US ORDERABLES Final Result * CARISA Rhythm Strip - Scan (10/07/2024 3:30 PM EDT) us Scanning Uchhim SCAN DOCS - NO RESULTS Final Res ult * (ABNORMAL) Protime-INR (10/07/2024 6:00 AM EDT) Protime 26.9(H) 12.1 - 15.1 seconds 10/07/2024 6:55 AM EDT [facility] INR 2.4(H) 0.9 - 1.1 10/07/2024 6:55 AM EDT [facility] Comment: RECOMMENDED THERAPEUTIC RANGES USING INR : Stable oral anticoagulant therapy: 2.0 - 3.0 Mechanical prosthetic heart valve: 2.5 - 3.5 Recurrent acute myocardial infarction: 2.5 - 3.5 Plasma 10/07/2024 6:00 AM EDT 10/07/2024 6:39 AM EDT us Eileen Schroeder MD, PhD LAB BLOOD ORDERABLES Final Result Performing Organization Address City/State/[facility] Co de Phone Number [facility] [address] * (ABNORMAL) Hepatic Function Panel (10/07/2024 6:00 AM EDT) Total Bilirubin 9.7(H) 0.0 - 1.5 mg/dL 10/07/2024 7:10 AM EDT [facility] Bilirubin, Direct 5.21(H) 0.00 - 0.40 mg/dL 10/07/2024 7:10 AM EDT [facility] AST 39 13 - 39 U/L 10/07/2024 7:10 AM EDT [facility] ALT 18 7 - 52 U/L 10/07/2024 7:10 AM EDT [facility] Alkaline Phosphatase 98 36 - 125 U/L 10/07/2024 7:10 AM EDT [facility] Total Protein 4.8(L) 6.4 - 8.9 g/dL 10/07/2024 7:10 AM EDT [facility] Albumin 3.6 3.5 - 5.7 g/dL 10/07/2024 7:10 AM EDT [facility] Bilirubin, Indirect 4.49(H) 0.00 - 1.10 mg/dL 10/07/2024 7:10 AM EDT [facility] Plasma 10/07/2024 6:00 AM EDT 10/07/2024 6:39 AM EDT Eileen Schroeder MD, PhD LAB BLOOD ORDERABLES Final Result Performing Organization Address [facility]/ZIP Co de Phone Number [facility] [address] [facility]. [address] * Magnesium (10/07/2024 6:00 AM EDT) Magnesium 1.7 1.5 - 2.5 mg/dL 10/07/2024 7:10 AM EDT [facility] Plasma 10/07/2024 6:00 AM EDT 10/07/2024 6:39 AM EDT Eileen Schroeder MD, PhD LAB BLOOD ORDERABLES Final Result Performing Organization Address [facility] Co de Phone Number [facility] [address] * (ABNORMAL) Renal Function Panel w/EGFR (10/07/2024 6:00 AM EDT) Sodium 132(L) 133 - 146 mmol/L 10/07/2024 7:10 AM EDT [facility] Potassium 3.9 3.5 - 5.3 mmol/L 10/07/2024 7:10 AM EDT [facility] Chloride 103 98 - 110 mmol/L 10/07/2024 7:10 AM EDT [facility] CO2 19(L) 21 - 33 mmol/L 10/07/2024 7:10 AM EDT [facility] Anion Gap 10 3 - 16 mmol/L 10/07/2024 7:10 AM EDT [facility] BUN 64(H) 7 - 25 mg/dL 10/07/2024 7:10 AM EDT [facility] Creatinine 3.38(H) 0.60 - 1.30 mg/dL 10/07/2024 7:10 AM EDT [facility] Glucose 111(H) 70 - 100 mg/dL 10/07/2024 7:10 AM EDT [facility] Calcium 9.1 8.6 - 10.3 mg/dL 10/07/2024 7:10 AM EDT [facility] Phosphorus 4.2 2.1 - 4.7 mg/dL 10/07/2024 7:10 AM EDT [facility] Albumin 3.6 3.5 - 5.7 g/dL 10/07/2024 7:10 AM EDT [facility] Osmolality, Calculated 293 278 - 305 mOsm/kg 10/07/2024 7:10 AM EDT [facility] EGFR 22 10/07/2024 7:10 AM EDT [facility] Comment:As of 2021, [...] MD, PhD LAB BLOOD ORDERABLES Final Result [facility] [address] [place] [address], [facility] * (ABNORMAL) CBC (10/07/2024 6:00 AM EDT) WBC 3.3(L) 3.8 - 10.8 10E3/uL 10/07/2024 7:55 AM EDT [facility] RBC 2.06(L) 4.20 - 5.80 10E6/uL 10/07/2024 7:55 AM EDT [facility] Hemoglobin 7.4(L) 13.2 - 17.1 g/dL 10/07/2024 7:55 AM EDT [facility] Hematocrit 21.5(L) 38.5 - 50.0 % 10/07/2024 7:55 AM EDT [facility] MCV 104.1(H) 80.0 - 100.0 fL 10/07/2024 7:55 AM EDT [facility] MCH 35.8(H) 27.0 - 33.0 pg 10/07/2024 7:55 AM EDT [facility] MCHC 34.4 32.0 - 36.0 g/dL 10/07/2024 7:55 AM EDT [facility] RDW 17.5(H) 11.0 - 15.0 % 10/07/2024 7:55 AM EDT [facility] Platelets 35(L) 140 - 400 10E3/uL 10/07/2024 7:55 AM EDT [facility] Comment: Specimen checked for clots. None detected. Slide Reviewed for PLT Clumps. None Seen. _Platelet Morphology Normal _Platelets Appear Decreased Platelet Estimate Decreased 10/07/2024 7:55 AM EDT [facility] MPV 8.0 7.5 - 11.5 fL 10/07/2024 7:55 AM EDT [facility] Whole Blood 10/07/2024 6:00 AM EDT 10/07/2024 6:40 AM EDT Narrative [facility] - 10/07/2024 7:55 AM EDT Peripheral blood smear was scanned per review criteria approved by the laboratory medical records clerk. us Eileen Schroeder MD, PhD LAB BLOOD ORDERABLES Final Result [facility] [address] * AFP Tumor Marker (10/07/2024 6:00 AM EDT) [facility] AFP-Tumor Marker 2.0 0.0 - 9.0 ng/mL 10/07/2024 7:11 AM EDT [facility] Serum 10/07/2024 6:00 AM EDT 10/07/2024 6:39 AM EDT Narrative [facility] - 10/07/2024 7:11 AM EDT The testing method for AFP is a chemiluminescent immunoassay manufactured by [employer] Concentrations of AFP obtained by different assay methods or kits may vary and cannot be used interchangeably. AFP results cannot be interpreted as absolute evidence of the presence or absence of malignant disease. Shila Rivera MD LAB BLOOD ORDERABLES Final Resul t Performing Organization Address City/[facility]/ZIP Co de Phone Number [facility] [address] [facility]. [address] * Vancomycin, random (10/07/2024 6:00 AM EDT) [facility] Vancomycin Random 21.1 ug/mL 10/07/2024 7:08 AM EDT [facility] Comment:Reference range not established for this test. Plasma 10/07/2024 6:00 AM EDT 10/07/2024 6:39 AM EDT Kiet Gardiner PharmD LAB BLOOD ORDERABLES Final Re sult [facility] [address] [facility]. [address] * Osmolality (10/06/2024 2:50 PM EDT) [facility] Osmolality, Measured 304 278 - 305 mOsm/kg 10/06/2024 3:49 PM EDT [facility] Serum 10/06/2024 2:50 PM EDT 10/06/2024 2:56 PM EDT Chari Vanegas MD LAB BLOOD ORDERABLES Final Resul t [facility] [address] [place] [address], [facility] * CT Head WO contrast (10/06/2024 1:56 [...] Eileen Schroeder MD, PhD IMG CT ORDERABLES Fin al Result * Chloride, urine, random (10/06/2024 1:25 PM EDT) Chloride, Ur <15 mmol/L 10/06/2024 1:56 PM EDT [facility] Comment:Reference range not established for this test. Urine 10/06/2024 1:25 PM EDT 10/06/2024 1:32 PM EDT Chari Vanegas MD URINE ORDERABLES Final Result Performing Organization Address [facility] de Phone Number [facility] [address] [place] [address] * Potassium, urine, random (10/06/2024 1:25 PM EDT) Potassium Urine Random 50.0 mmol/L 10/06/2024 1:56 PM EDT [facility] Comment:Reference range not established for this test. Urine 10/06/2024 1:25 PM EDT 10/06/2024 1:32 PM EDT Chari Vanegas MD URINE ORDERABLES Final Result Performing Organization Address [facility] de Phone Number [facility] [address] [facility]. [address] * Sodium, urine, random (10/06/2024 1:25 PM EDT) Sodium, Ur <10 mmol/L 10/06/2024 1:56 PM EDT [facility] Comment:Reference range not established for this test. Urine 10/06/2024 1:25 PM EDT 10/06/2024 1:32 PM EDT Chari Vanegas MD URINE ORDERABLES Final Result Performing Organization Address [facility]/State/ZIP Co de Phone Number [facility] [address] * Creatinine, Urine, Random (10/06/2024 1:25 PM EDT) Creatinine, Urine 87.40 mg/dL 10/06/2024 1:56 PM EDT [facility] Comment:Reference range not established for this test. Urine 10/06/2024 1:25 PM EDT 10/06/2024 1:32 PM EDT us Chari Vanegas MD URINE ORDERABLES Final Result Performing Organization Address City/[facility]/ZIP Co de Phone Number [facility] [address] [facility]. [address] * Osmolality, Urine (10/06/2024 1:25 PM EDT) Osmolality, Ur 386 50 - 1,200 mOsm/kg 10/06/2024 1:55 PM EDT [facility] Urine 10/06/2024 1:25 PM EDT 10/06/2024 1:32 PM EDT us Chari Vanegas MD URINE ORDERABLES Final Result Performing Organization Address [facility] Co de Phone Number [facility] [address] [facility]. [address] * Urine Drug Confirmation (10/06/2024 11:51 AM EDT) BARBITURATES NOT PRESENT 10/09/2024 3:23 PM EDT [facility] Comment:Results were recheck ed. BENZODIAZEPINES PRESENT 3:23 PM EDT [facility] Nordiazepam 3 ng/mL 10/09/2024 3:23 PM EDT [facility] Comment:Results were recheck ed. Temazepam 8 ng/mL 10/09/2024 3:23 PM EDT [facility] Comment:Results were recheck ed. CANNABINOIDS NOT PRESENT 10/09/2024 3:23 PM EDT [facility] LAB SPECIALIST STIMULANTS NOT PRESENT 3:23 PM EDT [facility] OPIOID ANALGESICS PRESENT 025 3:23 PM EDT [facility] Oxycodone 329 ng/mL 10/09/2024 3:23 PM EDT [facility] Oxymorphone 61 ng/mL 10/09/2024 3:23 PM EDT [facility] Tramadol >1000 ng/mL 10/09/2024 3:23 PM EDT [facility] OPIOID ANTAGONISTS NOT PRESENT 10/09 3:23 PM EDT [facility] SEDATIVES/MUSCLE RELAXANTS NOT PRESENT 10/09/2024 3:23 PM EDT [facility] TRICYCLIC ANTIDEPRESSANTS NOT PRESENT 10/09/2024 3:23 PM EDT [facility] Urine 10/06/2024 11:5 1 AM EDT 10/06/2024 1:13 PM EDT us Bisi Hernandez DO URINE ORDERABLES Final Result Performing Organization Address City/State/[facility] Co de Phone Number [facility] [address] * (ABNORMAL) Urine Drug Screen Reflex to Confirmation (10/06/2024 11:51 AM EDT) Amphetamine, 500 ng/mL Cutoff Negative Negative 10/06/2024 1:13 PM EDT [facility] Barbiturates UR, 300 ng/mL Cutoff Negative Negative 10/06/2024 1:13 PM EDT [facility] Buprenorphine, 5 ng/mL Cutoff Negative Negative 10/06/2024 1:13 PM EDT [facility] Benzodiazepines UR, 300 ng/mL Cutoff Negative Negative 10/06/2024 1:13 PM EDT [facility] Cocaine UR, 300 ng/mL Cutoff Negative Negative 10/06/2024 1:13 PM EDT [facility] Methadone, UR, 300 ng/mL Cutoff Negative Negative 10/06/2024 1:13 PM EDT [facility] Opiates UR, 300 ng/mL Cutoff Negative Negative 10/06/2024 1:13 PM EDT [facility] Oxycodone, 100 ng/mL Cutoff Presumptive Positive(A) Negative 10/06/2024 1:13 PM EDT [facility] Tricyclic Antidepressants, 300 ng/mL Cutoff Negative Negative 10/06/2024 1:13 PM EDT [facility] Comment:This test has been d eveloped and its performance characteristics determined by [facility] which is certified under the [...] Cutoff Negative Negative 10/06/2024 1:13 PM EDT [facility] Comment:This is a screening method only and may be associated with false positive and/or false negative results. Results are not definitive without additional confirmatory testing by mass spectrometry. Fentanyl, 2 ng/mL Cutoff Negative Negative 10/06/2024 1:13 PM EDT [facility] Comment:This test has been d eveloped and its performance characteristics determined by [facility] which is certified under the [...] AM EDT 10/06/2024 11:58 AM EDT Narrative [facility] - 10/06/2024 1:13 PM EDT CONFIRMATION TO FOLLOW Bisi Hernandez DO URINE ORDERABLES Final Result [facility] [address] * Chloride, urine, random (10/06/2024 11:51 AM EDT) Chloride, Ur <15 mmol/L 10/06/2024 1:13 PM EDT [facility] Comment:Reference range not established for this test. Urine 10/06/2024 11:5 1 AM EDT 10/06/2024 11:57 AM EDT us Bisi Hernandez DO URINE ORDERABLES Final Result Performing Organization Address [facility]/ZIP Co de Phone Number [facility] [address] * Potassium, urine, random (10/06/2024 11:51 AM EDT) Potassium Urine Random 49.0 mmol/L 10/06/2024 1:13 PM EDT [facility] Comment:Reference range not established for this test. Urine 10/06/2024 11:5 1 AM EDT 10/06/2024 11:57 AM EDT Bisi Hernandez DO URINE ORDERABLES Final Result Performing Organization Address [facility] Co de Phone Number [facility] [address] * Sodium, urine, random (10/06/2024 11:51 AM EDT) Sodium, Ur <10 mmol/L 10/06/2024 1:13 PM EDT [facility] Comment:Reference range not established for this test. Urine 10/06/2024 11:5 1 AM EDT 10/06/2024 11:57 AM EDT Bisi Hernandez DO URINE ORDERABLES Final Result Performing Organization Address [facility] Co de Phone Number [facility] [address] * Urinalysis w/Rfl to Microscopic (10/06/2024 11:51 AM EDT) Color, UA Yellow Yellow,Straw 10/06/2024 12:25 PM EDT [facility] Clarity, UA Clear Clear 10/06/2024 12:25 PM EDT [facility] Specific Myrtle, UA 1.014 1.005 - 1.035 10/06/2024 12:25 PM EDT [facility] pH, UA 6.0 5.0 - 8.0 10/06/2024 12:25 PM EDT [facility] Protein, UA Negative Negative mg/dL 10/06/2024 12:25 PM EDT [facility] Glucose, UA Negative Negative mg/dL 10/06/2024 12:25 PM EDT [facility] Ketones, UA Negative Negative mg/dL 10/06/2024 12:25 PM EDT [facility] Bilirubin, UA Negative Negative 10/06/2024 12:25 PM EDT [facility] Blood, UA Negative Negative 10/06/2024 12:25 PM EDT [facility] Nitrite, UA Negative Negative 10/06/2024 12:25 PM EDT [facility] Urobilinogen, UA <2.0 0.2 - 1.9 mg/dL 10/06/2024 12:25 PM EDT [facility] Leukocyte Esterase, UA Negative Negative 10/06/2024 12:25 PM EDT [facility] Urine 10/06/2024 11:5 1 AM EDT 10/06/2024 11:57 AM EDT Narrative [facility] - 10/06/2024 12:25 PM EDT Microscopic testing is not performed when the dipstick is negative for blood, leukocyte, protein and nitrite. us Bisi Hernandez DO URINE ORDERABLES Final Result Performing Organization Address [facility] Co de Phone Number [facility] [address] * Lactic Acid, STAT (10/06/2024 7:38 AM EDT) Lactate 0.9 0.5 - 2.2 mmol/L 10/06/2024 8:05 AM EDT [facility] Plasma 10/06/2024 7:38 AM EDT 10/06/2024 7:42 AM EDT us Chari Vanegas MD LAB BLOOD ORDERABLES Final Resul t Performing Organization Address City/[facility] Co de Phone Number [facility] [address] * (ABNORMAL) CBC, STAT (10/06/2024 7:37 AM EDT) WBC 5.6 3.8 - 10.8 10E3/uL 10/06/2024 8:22 AM EDT [facility] RBC 2.50(L) 4.20 - 5.80 10E6/uL 10/06/2024 8:22 AM EDT [facility] Hemoglobin 9.0(L) 13.2 - 17.1 g/dL 10/06/2024 8:22 AM EDT [facility] Hematocrit 25.3(L) 38.5 - 50.0 % 10/06/2024 8:22 AM EDT [facility] MCV 101.2(H) 80.0 - 100.0 fL 10/06/2024 8:22 AM EDT [facility] MCH 36.0(H) 27.0 - 33.0 pg 10/06/2024 8:22 AM EDT [facility] MCHC 35.6 32.0 - 36.0 g/dL 10/06/2024 8:22 AM EDT [facility] RDW 17.7(H) 11.0 - 15.0 % 10/06/2024 8:22 AM EDT [facility] Platelets 52(L) 140 - 400 10E3/uL 10/06/2024 8:22 AM EDT [facility] Comment: Specimen checked for clots. None detected. Slide Reviewed for PLT Clumps. None Seen. MPV 8.2 7.5 - 11.5 fL 10/06/2024 8:22 AM EDT [facility] Whole Blood 10/06/2024 7:37 AM EDT 10/06/2024 7:43 AM EDT us Chari Vanegas MD LAB BLOOD ORDERABLES Final Resul t [facility] [address] [place] [address], [facility] * (ABNORMAL) Comprehensive Metabolic Panel (10/06/2024 7:37 AM EDT) Sodium 129(L) 133 - 146 mmol/L 10/06/2024 8:16 AM EDT [facility] Potassium 4.4 3.5 - 5.3 mmol/L 10/06/2024 8:16 AM EDT [facility] Chloride 100 98 - 110 mmol/L 10/06/2024 8:16 AM EDT [facility] CO2 18(L) 21 - 33 mmol/L 10/06/2024 8:16 [facility] Anion Gap 11 3 - 16 mmol/L 10/06/2024 8:16 AM T [facility] BUN 62(H) 7 - 25 mg/dL 10/06/2024 8:16 AM T [facility] Creatinine 3.40(H) 0.60 - 1.30 mg/dL 10/06/2024 8:16 AM T [facility] Glucose 98 70 - 100 mg/dL 10/06/2024 8:16 AM T [facility] Calcium 9.5 8.6 - 10.3 mg/dL 10/06/2024 8:16 AM [facility] Total Bilirubin 14.3(H) 0.0 - 1.5 mg/dL 10/06/2024 8:16 AM T [facility] AST 57(H) 13 - 39 U/L 10/06/2024 8:16 AM T [facility] ALT 29 7 - 52 U/L 10/06/2024 8:16 AM [facility] Alkaline Phosphatase 158(H) 36 - 125 U/L 10/06/2024 8:16 AM [facility] Total Protein 5.6(L) 6.4 - 8.9 g/dL 10/06/2024 8:16 AM [facility] Albumin 3.6 3.5 - 5.7 g/dL 10/06/2024 8:16 AM [facility] Osmolality, Calculated 286 278 - 305 mOsm/kg 10/06/2024 8:16 AM [facility] EGFR 22 10/06/2024 8:16 AM [facility] Comment:As of 2021, the estimated [...] MD LAB BLOOD ORDERABLES Final Resul t [facility] [address] [place] [address], [facility] * (ABNORMAL) Venous Blood Gas, Line/Syringe, STAT (10/06/2024 7:37 AM EDT) PH-Line Draw 7.27(L) 7.32 - 7.42 10/06/2024 7:46 AM EDT [facility] PCO2-Line Draw 36(L) 41 - 51 mm Hg 10/06/2024 7:46 AM EDT [facility] PO2-Line Draw 44(H) 25 - 40 mm Hg 10/06/2024 7:46 AM EDT [facility] HCO3-Line Draw 17(L) 24 - 28 mmol/L 10/06/2024 7:46 AM EDT [facility] CO2 Content-Line Draw 18(L) 25 - 29 mmol/L 10/06/2024 7:46 AM EDT [facility] Base Excess-Line Draw -9.6(L) -2.0 - 3.0 mmol/L 10/06/2024 7:46 AM EDT [facility] %HBO2-Line Draw 69.8 40.0 - 70.0 % 10/06/2024 7:46 AM EDT [facility] Carboxyhgb-Ludivina e Draw 0.7 % 10/06/2024 7:46 AM EDT [facility] Comment: CARBOXYHEMOGLOBIN (CO) REFERENCE RANGES: Non-Smokers: <2 % Smokers: <8 % TOXIC: >20 % Methemoglobin- Line Draw 0.3 0.0 - 1.5 % 10/06/2024 7:46 AM EDT [facility] Reduced Hemoglobin-Ludivina e Draw 29.2(H) 0.0 - 5.0 % 10/06/2024 7:46 AM EDT [facility] Venous, Line Draw 10/06/2024 7:37 AM EDT 10/06/2024 7:43 AM EDT Chari Vanegas MD LAB BLOOD ORDERABLES Final Resul t [facility] [address] [place] [address], [facility] * (ABNORMAL) Venous Blood Gas, Line/Syringe, STAT (10/06/2024 4:03 AM EDT) PH-Line Draw 7.21(L) 7.32 - 7.42 10/06/2024 4:16 AM EDT [facility] PCO2-Line Draw 41 41 - 51 mm Hg 10/06/2024 4:16 AM EDT [facility] PO2-Line Draw 32 25 - 40 mm Hg 10/06/2024 4:16 AM EDT [facility] HCO3-Line Draw 16(L) 24 - 28 mmol/L 10/06/2024 4:16 AM EDT [facility] CO2 Content-Line Draw 18(L) 25 - 29 mmol/L 10/06/2024 4:16 AM EDT [facility] Base Excess-Line Draw -10.8(L) -2.0 - 3.0 mmol/L 10/06/2024 4:16 AM EDT [facility] %HBO2-Line Draw 47.5 40.0 - 70.0 % 10/06/2024 4:16 AM EDT [facility] Carboxyhgb-Ludivina e Draw 2.0 % 10/06/2024 4:16 AM EDT [facility] Comment: CARBOXYHEMOGLOBIN (CO) REFERENCE RANGES: Non-Smokers: <2 % Smokers: <8 % TOXIC: >20 % Methemoglobin- Line Draw 0.7 0.0 - 1.5 % 10/06/2024 4:16 AM EDT [facility] Reduced Hemoglobin-Ludivina e Draw 49.8(H) 0.0 - 5.0 % 10/06/2024 4:16 AM EDT [facility] Venous, Line Draw 10/06/2024 4:03 AM EDT 10/06/2024 4:12 AM EDT [employer] LAB BLOOD ORDERABLES Final Resul t Performing Organization Address [facility] de Phone Number [facility] [address] [facility]. [address] * (ABNORMAL) Protime-INR (10/06/2024 4:01 AM EDT) Protime 21.3(H) 12.1 - 15.1 seconds 10/06/2024 4:40 AM EDT [facility] INR 1.8(H) 0.9 - 1.1 10/06/2024 4:40 AM EDT [facility] Comment: RECOMMENDED THERAPEUTIC RANGES USING INR : Stable oral anticoagulant therapy: 2.0 - 3.0 Mechanical prosthetic heart valve: 2.5 - 3.5 Recurrent acute myocardial infarction: 2.5 - 3.5 Plasma 10/06/2024 4:01 AM EDT 10/06/2024 4:11 AM EDT [facility] Final Resul t Performing Organization Address [facility] de Phone Number [facility] [address] [facility]. [address] * (ABNORMAL) Hepatic Function Panel, AM (10/06/2024 4:01 AM EDT) Total Bilirubin 14.7(H) 0.0 - 1.5 mg/dL 10/06/2024 4:57 AM EDT [facility] Bilirubin, Direct 7.08(H) 0.00 - 0.40 mg/dL 10/06/2024 4:57 AM EDT [facility] AST 60(H) 13 - 39 U/L 10/06/2024 4:57 AM EDT [facility] ALT 31 7 - 52 U/L 10/06/2024 4:57 AM EDT [facility] Alkaline Phosphatase 162(H) 36 - 125 U/L 10/06/2024 4:57 AM EDT [facility] Total Protein 5.3(L) 6.4 - 8.9 g/dL 10/06/2024 4:57 AM EDT [facility] Albumin 3.4(L) 3.5 - 5.7 g/dL 10/06/2024 4:57 AM EDT [facility] Bilirubin, Indirect 7.62(H) 0.00 - 1.10 mg/dL 10/06/2024 4:57 AM EDT [facility] Plasma 10/06/2024 4:01 AM EDT 10/06/2024 4:22 AM EDT [employer] LAB BLOOD ORDERABLES Final Resul t Performing Organization Address City/[facility] de Phone Number [facility] [address] * Magnesium (10/06/2024 4:01 AM EDT) Magnesium 1.8 1.5 - 2.5 mg/dL 10/06/2024 4:57 AM EDT [facility] Plasma 10/06/2024 4:01 AM EDT 10/06/2024 4:22 AM EDT [employer] 360 LAB BLOOD ORDERABLES Final Resul t Performing Organization Address City/[facility] Co de Phone Number [facility] [address] * (ABNORMAL) Renal Function Panel w/EGFR (10/06/2024 4:01 AM EDT) Sodium 129(L) 133 - 146 mmol/L 10/06/2024 4:57 AM EDT [facility] Potassium 4.7 3.5 - 5.3 mmol/L 10/06/2024 4:57 AM EDT [facility] Chloride 100 98 - 110 mmol/L 10/06/2024 4:57 AM EDT [facility] CO2 16(L) 21 - 33 mmol/L 10/06/2024 4:57 AM EDT [facility] Anion Gap 13 3 - 16 mmol/L 10/06/2024 4:57 AM EDT [facility] BUN 61(H) 7 - 25 mg/dL 10/06/2024 4:57 AM EDT [facility] Creatinine 3.49(H) 0.60 - 1.30 mg/dL 10/06/2024 4:57 AM EDT [facility] Glucose 104(H) 70 - 100 mg/dL 10/06/2024 4:57 AM EDT [facility] Calcium 9.2 8.6 - 10.3 mg/dL 10/06/2024 4:57 AM EDT [facility] Phosphorus 5.3(H) 2.1 - 4.7 mg/dL 10/06/2024 4:57 AM EDT [facility] Albumin 3.4(L) 3.5 - 5.7 g/dL 10/06/2024 4:57 AM EDT [facility] Osmolality, Calculated 286 278 - 305 mOsm/kg 10/06/2024 4:57 AM T [facility] EGFR 22 10/06/2024 4:57 AM T [facility] Comment:As of 2021, the [...] EDT 10/06/2024 4:22 AM EDT us Bisi Akella DO LAB BLOOD ORDERABLES Final Resul t [facility] [address] * (ABNORMAL) CBC (10/06/2024 4:01 AM EDT) WBC 7.6 3.8 - 10.8 10E3/uL 10/06/2024 5:16 AM EDT [facility] RBC 2.77(L) 4.20 - 5.80 10E6/uL 10/06/2024 5:16 AM EDT [facility] Hemoglobin 10.1(L) 13.2 - 17.1 g/dL 10/06/2024 5:16 AM EDT [facility] Hematocrit 28.4(L) 38.5 - 50.0 % 10/06/2024 5:16 AM EDT [facility] MCV 102.4(H) 80.0 - 100.0 fL 10/06/2024 5:16 AM EDT [facility] MCH 36.4(H) 27.0 - 33.0 pg 10/06/2024 5:16 AM EDT [facility] MCHC 35.5 32.0 - 36.0 g/dL 10/06/2024 5:16 AM EDT [facility] RDW 18.0(H) 11.0 - 15.0 % 10/06/2024 5:16 AM EDT [facility] Platelets 53(L) 140 - 400 10E3/uL 10/06/2024 5:16 AM EDT [facility] Comment:Specimen checked for clots. None detected. MPV 8.4 7.5 - 11.5 fL 10/06/2024 5:16 AM EDT [facility] Whole Blood 10/06/2024 4:01 AM EDT 10/06/2024 4:11 AM EDT us [facility] DO LAB BLOOD ORDERABLES Final Resul t [facility] [address] * Hepatitis C Antibody (10/06/2024 4:01 AM EDT) HCV Ab Nonreactive Nonreactive 10/06/2024 5:12 AM EDT [facility] Comment:Health Department no tified in accordance with reportable infectious disease guidelines. Serum 10/06/2024 4:01 AM EDT 10/06/2024 4:11 AM EDT Narrative HEALTH LAB - 10/06/2024 5:12 AM EDT Antibodies to HCV not detected; does not exclude the possibility of exposure to HCV. [employer] 360 LAB BLOOD ORDERABLES Final Resul t Performing Organization Address [facility] Co de Phone Number [facility] [address] [facility]. [address] * (ABNORMAL) Hepatitis B Surface Antibody, Quantitati (10/06/2024 4:01 AM EDT) Hep B S Ab Reactive( A) Nonreactive 10/06/2024 5:16 AM EDT [facility] HBSAB NUMBER 11.50(H) 0.00 - 7.99 mIU/mL 10/06/2024 5:16 AM EDT [facility] Serum 10/06/2024 4:01 AM EDT 10/06/2024 4:11 AM EDT [facility] - 10/06/2024 5:16 AM EDT Individual is considered immune to HBV infection. [employer] 360 LAB BLOOD ORDERABLES Final Resul t Performing Organization Address City/[facility]/ZIP Co de Phone Number [facility] [address] [facility]. [address] * Hepatitis B surface antigen (10/06/2024 4:01 AM EDT) Hep B Surface Ag Nonreactive Nonreactive 10/06/2024 5:07 AM EDT [facility] Comment:Health Department no tified in accordance with reportable infectious disease guidelines. Serum 10/06/2024 4:01 AM EDT 10/06/2024 4:11 AM EDT [facility] HEALTH LAB - 10/06/2024 5:07 AM EDT Specimen is considered negative for HBsAg. [employer] 360 LAB BLOOD ORDERABLES Final Resul t Performing Organization Address City/[facility]/ZIP Co de Phone Number [facility] [address] [facility]. [address] * Hepatitis A Antibody Total (10/06/2024 4:01 AM EDT) Anti-HAV Total (IgG + IgM) Nonreactive 10/06/2024 5:08 AM EDT [facility] Serum 10/06/2024 4:01 AM EDT 10/06/2024 4:11 AM EDT [facility] - 10/06/2024 5:08 AM EDT HAV antibodies not detected [employer] 360 LAB BLOOD ORDERABLES Final Resul t Performing Organization Address [facility] de Phone Number [facility] [address] [facility]. [address] * Hepatitis A IgM (10/06/2024 4:01 AM EDT) Hep A IgM Nonreactive Nonreactive 10/06/2024 5:02 AM EDT [facility] Serum 10/06/2024 4:01 AM EDT 10/06/2024 4:11 AM EDT [facility] - 10/06/2024 5:02 AM EDT IgM anti-HAV not detected. Does not exclude the possibility of exposure to or infection with HAV. Levels of IgM anti-HAV may be below the cut-off in early infection. [employer] LAB BLOOD ORDERABLES Final Resul t Performing Organization Address City/[facility]/ZIP Co de Phone Number [facility] [address] [facility]. [address] * (ABNORMAL) Salicylate Level (10/06/2024 4:01 AM EDT) [facility] Salicylate Lvl <3(L) 10 - 30 mg/dL 10/06/2024 4:58 AM EDT [facility] Serum 10/06/2024 4:01 AM EDT 10/06/2024 4:22 AM EDT [facility] B[facility] ORDER[facility] Final Resul t Performing Organization Address [facility] Co de Phone Number [facility] [address] [facility]. [address] * AFP Tumor Marker (10/06/2024 4:01 AM EDT) [facility] AFP-Tumor Marker 2.6 0.0 - 9.0 ng/mL 10/06/2024 4:55 AM EDT [facility] Serum 10/06/2024 4:01 AM EDT 10/06/2024 4:22 AM EDT Narrative [facility] - 10/06/2024 4:55 AM EDT The testing method for AFP is a chemiluminescent immunoassay manufactured by [employer] Concentrations of AFP obtained by different assay methods or kits may vary and cannot be used interchangeably. AFP results cannot be interpreted as absolute evidence of the presence or absence of malignant disease. [employer] LAB BLOOD ORDERABLES Final Resul t Performing Organization Address [facility] Co de Phone Number [facility] [address] [facility] * Upper Respiratory Viral/Bacterial Panel-GERMINATION TESTING MANAGER Only (10/06/2024 3:12 AM EDT) [facility] Adenovirus Not Detected Not Detected 10/06/2024 11:38 PM EDT [facility] Coronavirus (229E,HKU1,NL63,OC 43) Not Detected Not Detected 10/06/2024 11:38 PM EDT [facility] SARS-CoV-2 Not Detected Not Detected 10/06/2024 11:38 PM EDT [facility] Human Metapneumovirus Not Detected Not Detected 10/06/2024 11:38 PM EDT [facility] Human Rhinovirus/Enterov irus Not Detected Not Detected 10/06/2024 11:38 PM EDT [facility] Influenza A Not Detected Not Detected 10/06/2024 11:38 PM EDT [facility] Influenza A H1 Not Detected Not Detected 10/06/2024 11:38 PM EDT [facility] Influenza A/H1-2009 Not Detected Not Detected 10/06/2024 11:38 PM EDT [facility] Influenza A H3 Not Detected Not Detected 10/06/2024 11:38 PM EDT [facility] Influenza B Not Detected Not Detected 10/06/2024 11:38 PM EDT [facility] Parainfluenza 1 Not Detected Not Detected 10/06/2024 11:38 PM EDT [facility] Parainfluenza 2 Not Detected Not Detected 10/06/2024 11:38 PM EDT [facility] Parainfluenza 3 Not Detected Not Detected 10/06/2024 11:38 PM EDT [facility] Parainfluenza 4 Not Detected Not Detected 10/06/2024 11:38 PM EDT [facility] Resp. Syncycial Virus A Not Detected Not Detected 10/06/2024 11:38 PM EDT [facility] Resp. Syncycial Virus B Not Detected Not Detected 10/06/2024 11:38 PM EDT [facility] Chlamydia pneumoniae Not Detected Not Detected 10/06/2024 11:38 PM EDT [facility] Mycoplasma pneumoniae Not Detected Not Detected 10/06/2024 11:38 PM EDT [facility] Comment: The Respiratory Viral-Bacterial Panel [...] Test results have been sent to the [facility] in accordance with state requirements. For a fact sheet for healthcare providers, see https://www.fda.gov/media/908044/download. For a fact sheet for patients, see https://www.fda.gov/media/414388/download. Nasopharyngeal Swab NASOPHARYNGEAL SWAB / Unknown 10/06/2024 3:12 AM EDT 10/06/2024 5:41 PM EDT Comment:GERMINATION TESTING MANAGER Bisi Mary DO BODY FLUIDS AND STOOLS ORDERABLE S Final Result [facility] [address] * X-ray Portable Chest (10/06/2024 1:16 AM [...] 10/06/2024 2:33 AM EDT us Bisi Hernandez [facility] ORDERABLE S Final Result * Phosphatidylethanol Confirmation, B (10/06/2024 1:04 AM EDT) PETH 16:0/18.1 (POPETH) <10 Cutoff: 10 ng/mL 10/10/2024 3:11 AM EDT [facility] Comment: Phosphatidylethanol (PEth) homologues result interpretation [...] Cutoff: 10 ng/mL 10/10/2024 3:11 AM EDT [facility] Comment: PEth 16:0/18:2 (PLPEth) Reference ranges are not well established PEth Interpretation Negative. 10/10 3:11 AM EDT [facility] Comment: ADDITIONAL INFORMATION This report is intended for use in clinical monitoring and management of patients. It is not intended for use in employment-related testing. This test was developed and its performance characteristics determined by [facility] in a manner consistent with CLIA requirements. This test has not been cleared or approved by the U.S. Food and Drug Administration. Test Performed by: [facility] [address] [place] [address] Supervisor Intermediates: Kathy Ortiz Ph.D.; CLIA# [id number] Whole Blood 10/06/2024 1:04 AM EDT 10/10/2024 3:11 AM EDT [employer] 360 LAB BLOOD ORDERABLES Final Resul t Performing Organization Address [facility] Co de Phone Number [facility] [address] [place] [address]. [address] * (ABNORMAL) Acetaminophen Level (10/06/2024 1:04 AM EDT) Acetaminophen Level <10(L) 10 - 30 ug/mL 10/06/2024 2:08 AM EDT [facility] Serum 10/06/2024 1:04 AM EDT 10/06/2024 1:30 AM EDT [employer] 360 LAB BLOOD ORDERABLES Final Resul t Performing Organization Address [facility] Co de Phone Number [facility] [address] [place] [address]. [address] * Ethanol, Serum (10/06/2024 1:04 AM EDT) Ethanol <10 0 - 10 mg/dL 10/06/2024 2:08 AM EDT [facility] Serum 10/06/2024 1:04 AM EDT 10/06/2024 1:30 AM EDT [employer] 360 LAB BLOOD ORDERABLES Final Resul t Performing Organization Address [facility] Co de Phone Number [facility] [address] [place] [address]. [address] * #2 Blood culture-Peripheral site 2 (10/06/2024 1:04 AM EDT) Culture Result No Growth After 5 Days [facility] Blood BLOOD SPECIMEN / Unknown 10/06/2024 1:04 AM EDT 10/06/2024 4:57 AM EDT Narrative HEALTH LAB - 10/11/2024 5:05 AM EDT Suboptimal volume of blood received. Interpret results with caution. Bisi Akana maría MICROBIOLOGY - GENERAL ORDERABLE S Final Result [facility] [address] * #1 Blood culture-Peripheral site 1 (10/06/2024 1:04 AM EDT) Culture Result No Growth After 5 Days [facility] Blood BLOOD SPECIMEN / Unknown 10/06/2024 1:04 AM EDT 10/06/2024 4:57 AM EDT Narrative HEALTH LAB - 10/11/2024 5:01 AM EDT Suboptimal volume of blood received. Interpret results with caution. [employer] maría MICROBIOLOGY - GENERAL ORDERABLE S Final Result Performing Organization Address City/[facility]/ZIP Co de Phone Number [facility] [address] * Ammonia (10/06/2024 1:04 AM EDT) Ammonia 77 27 - 90 ug/dL 10/06/2024 2:00 AM EDT [facility] Plasma 10/06/2024 1:04 AM EDT 10/06/2024 1:30 AM EDT [employer] LAB BLOOD ORDERABLES Final Resul t Performing Organization Address City/[facility]/ZIP Co de Phone Number [facility] [address] * Thyroid Function [place] (10/06/2024 1:04 AM EDT) TSH 0.84 0.45 - 4.12 uIU/mL 10/06/2024 2:20 AM EDT [facility] Serum 10/06/2024 1:04 AM EDT 10/06/2024 1:39 AM EDT us [employer] LAB BLOOD ORDERABLES Final Resul t Performing Organization Address [facility] de Phone Number [facility] [address] * (ABNORMAL) Protime-INR (10/06/2024 1:04 AM EDT) Protime 22.8(H) 12.1 - 15.1 seconds 10/06/2024 1:48 AM EDT [facility] INR 1.9(H) 0.9 - 1.1 10/06/2024 1:48 AM EDT [facility] Comment: RECOMMENDED THERAPEUTIC RANGES USING INR : Stable oral anticoagulant therapy: 2.0 - 3.0 Mechanical prosthetic heart valve: 2.5 - 3.5 Recurrent acute myocardial infarction: 2.5 - 3.5 Plasma 10/06/2024 1:04 AM EDT 10/06/2024 1:30 AM EDT [employer] 360 LAB BLOOD ORDERABLES Final Resul t Performing Organization Address [facility] de Phone Number [facility] [address] [facility]. [address] * Lactic Acid, STAT (10/06/2024 1:04 AM EDT) Lactate 1.2 0.5 - 2.2 mmol/L 10/06/2024 1:59 AM EDT [facility] Plasma 10/06/2024 1:04 AM EDT 10/06/2024 1:30 AM EDT [employer] 360 LAB BLOOD ORDERABLES Final Resul t [facility] [address] [place] [address], [facility] * (ABNORMAL) CBC, STAT (10/06/2024 1:04 AM EDT) WBC 7.9 3.8 - 10.8 10E3/uL 10/06/2024 2:36 AM EDT [facility] RBC 2.76(L) 4.20 - 5.80 10E6/uL 10/06/2024 2:36 AM EDT [facility] Hemoglobin 9.9(L) 13.2 - 17.1 g/dL 10/06/2024 2:36 AM EDT [facility] Hematocrit 28.0(L) 38.5 - 50.0 % 10/06/2024 2:36 AM EDT [facility] MCV 101.5(H) 80.0 - 100.0 fL 10/06/2024 2:36 AM EDT [facility] MCH 35.7(H) 27.0 - 33.0 pg 10/06/2024 2:36 AM EDT [facility] MCHC 35.2 32.0 - 36.0 g/dL 10/06/2024 2:36 AM EDT [facility] RDW 17.9(H) 11.0 - 15.0 % 10/06/2024 2:36 AM EDT [facility] Platelets 58(L) 140 - 400 10E3/uL 10/06/2024 2:36 AM EDT [facility] Comment: Specimen checked for clots. None detected. Slide Reviewed for PLT Clumps. None Seen. MPV 8.2 7.5 - 11.5 fL 10/06/2024 2:36 AM EDT [facility] Whole Blood 10/06/2024 1:04 AM EDT 10/06/2024 1:31 AM EDT us Bisi Hernandez DO LAB BLOOD ORDERABLES Final Resul t [facility] [address] [place] [address], [facility] * (ABNORMAL) Comprehensive Metabolic Panel (10/06/2024 1:04 AM ED) Sodium 127(L) 133 - 146 mmol/L 10/06/2024 2:05 AM [facility] Potassium 4.5 3.5 - 5.3 mmol/L 10/06/2024 2:05 AM [facility] Chloride 99 98 - 110 mmol/L 10/06/2024 2:05 AM [facility] CO2 18(L) 21 - 33 mmol/L 10/06/2024 2:05 AM [facility] Anion Gap 10 3 - 16 mmol/L 10/06/2024 2:05 AM [facility] BUN 59(H) 7 - 25 mg/dL 10/06/2024 2:05 AM [facility] Creatinine 3.54(H) 0.60 - 1.30 mg/dL 10/06/2024 2:05 AM [facility] Glucose 116(H) 70 - 100 mg/dL 10/06/2024 2:05 AM [facility] Calcium 9.0 8.6 - 10.3 mg/dL 10/06/2024 2:05 AM [facility] Total Bilirubin 14.8(H) 0.0 - 1.5 mg/dL 10/06/2024 2:05 AM [facility] AST 61(H) 13 - 39 U/L 10/06/2024 2:05 AM [facility] ALT 33 7 - 52 U/L 10/06/2024 2:05 AM [facility] Alkaline Phosphatase 174(H) 36 - 125 U/L 10/06/2024 2:05 AM [facility] Total Protein 5.2(L) 6.4 - 8.9 g/dL 10/06/2024 2:05 AM [facility] Albumin 3.3(L) 3.5 - 5.7 g/dL 10/06/2024 2:05 AM [facility] Osmolality, Calculated 282 278 - 305 mOsm/kg 10/06/2024 2:05 AM [facility] EGFR 21 10/06/2024 2:05 AM [facility] Comment:As of 2021, the estimated GFR is calculated using the 2021 Chronic Kidney Disease Epidemiology Collaboration (CKD-EPI) equation. [...] DO LAB BLOOD ORDERABLES Final Resul t [facility] [address] documented in this encounter Visit Diagnoses [...] of cervical spinal surgery Anemia Unspecified anemia documented in this encounter Administered Medications Inactive [...] AM EDT 12.5 g 100 mL/hr New 10/06/2024 9:32 AM EDT 12.5 g 100 mL/hr New 10/06/2024 8:38 AM EDT 12.5 g 100 mL/hr albumin human 25% 12.5 g, Intravenous, Every 30 min, First dose on Sun10/06/24 at 1600, For 8 doses, In Emergencies, may administer as rapidly as needed to improve clinical status., Select indication for use: Cirrhosis: Hepatorenal Syndrome, at 100 mL/hr New Bag 10/06/2024 9:15 PM EDT 12.5 g 100 mL/hr New 10/06/2024 8:43 PM EDT 12.5 g 100 mL/hr New 10/06/2024 8:09 PM EDT 12.5 g 100 [...] g, Intravenous, at 100 mL/hr, Once, On Sun10/12/24 at 0700, For 1 dose New 10/12/2024 8:31 AM EDT 1 g 100 mL/hr magnesium sulfate in sterile water 50 mL IVPB 2 g 2 g, Intravenous, Administer over 120 Minutes, Once, On Sun10/07/24 at 0730, For 1 dose 10/07/2024 10:18 AM EDT 2 g 25 mL/hr magnesium sulfate in sterile water 50 mL IVPB 2 g 2 g, Intravenous, Administer over 120 Minutes, Once, On Sun10/09/24 at 0800, For 1 dose 10/09/2024 8:20 AM EDT 2 g 25 mL/hr magnesium sulfate in sterile water 50 mL IVPB 2 g 2 g, Intravenous, Administer over 120 Minutes, Once, On Sun10/10/24 at 0730, For 1 dose New 10/10/2024 9:14 AM EDT 2 g 25 mL/hr magnesium sulfate in sterile water 50 mL IVPB 2 g 2 g, Intravenous, Administer over 120 Minutes, Once, On Sun10/15/24 at 0730, For 1 dose New 10/15/2024 8:27 AM EDT 2 g 25 [...] daily, First dose on Sun10/09/24 at 1300 Given 10/17/2024 8:49 AM EDT [...] (CPOT 3-5), Starting on Sun10/07/24 at 1205 oxyCODONE (ROXICODONE) immediate release tablet 5 mg 5 mg, Oral, Every 6 hours PRN, severe pain (NRS 7-10) or if patient is non-communicative (CPOT 6-8), Starting on Sun10/07/24 at 1205 Given 10/17/2024 8:48 AM EDT 5 mg Given 10/17/2024 2:45 AM EDT 5 mg Given 10/16/2024 8:31 PM EDT 5 mg oxyCODONE (ROXICODONE) immediate release tablet 5 mg 5 mg, Oral, Once, On Sun10/14/24 at 0130, For 1 dose Given 10/14/2024 [...] IMG once as needed, contrast, Starting on Sun10/09/24 at 1536, For 1 dose Given 10/09/2024 [...] mEq 40 mEq, Oral, Once, On Tish 10/09/24 at 1430, For 1 dose, FOR PATIENTS [...] in sodium chloride 0.9 % 250 mL [id number] 1,000 mg, Intravenous, Administer over 60 Minutes, Once, Contact pharmacy if there is a question/concern of whether vancomycin should be given based on serum drug levels. Use [id number] Adapter - Mix Thoroughly Before Administration, Indication? Infection-Suspected, Site of diagnosed infections (select all that apply): Abdominal/Pelvic New Bag 10/08/2024 12:59 PM EDT 1,000 mg 250 mL/hr vancomycin (VANCOCIN) 1,500 mg in sodium chloride 0.9 % 250 mL [id number] 1,500 mg, Intravenous, Administer over 90 Minutes, Once, Contact pharmacy if there is a question/concern of whether vancomycin should be given based on serum drug levels. Use [id number] Adapter - Mix Thoroughly Before Administration, Indication? [...] Wolff RN) 0850 (Given - Provider: Suzette Arciniega RN) FLUoxetine (PROZAC) capsule 20 mg 20 mg, Oral, Daily, First dose on Sun10/17/24 at 0900 0938 (Given - Provider: Suzette Arciniega, ЮЛИЯ) folic acid (FOLVITE) tablet 1 mg 1 mg, Oral, Daily, First dose on Sun10/06/24 at 0900 0820 (Given - Provider: Anu Wolff RN) 0834 (Given - Provider: Anu Wolff RN) 0848 (Given - Provider: Suzette Arciniega RN) heparin (porcine) injection 5,000 Units 5,000 Units, Subcutaneous, Every 8 hours scheduled (3 times per day), First dose on Sun10/06/24 at 0500 0622 (Not Given - Provider: Minh Torres RN - Reason: Patient/family refused)1335 (Given - Provider: Anu Wolff RN)210 (Given - Provider: Chelsy Bush, ЮЛИЯ) 0636 (Given - Provider: Chelsy Bush, ЮЛИЯ)1317 (Given - Provider: Anu Wolff RN)2022 (Given - Provider: Soco Milton RN) 0607 (Not Given - Provider: Soco Milton RN - Reason: Patient/family refused) lactulose (CHRONULAC) 10 gram/15 mL solution 20 g 20 g, Oral, 3 times daily, First dose (after last modification) on Sun10/06/24 at 0900, Titrate to 2-3 bowel movements a day 0820 (Given - Provider: Anu Wolff RN)1354 (Given - Provider: Anu Wolff RN)2104 (Given - Provider: Chelsy Bush RN) 0834 (Given - Provider: Anu Wolff RN)1316 (Given - Provider: Anu Wolff RN)2022 (Not Given - Provider: Soco Milton RN - Reason: Order parameters not met) 0851 (Not Given - Provider: Suzette Arciniega RN - Reason: Patient/family refused) levothyroxine (SYNTHROID) tablet 75 mcg 75 mcg, Oral, Every morning before breakfast, First dose on Sun10/06/24 at 0730, Please hold tube feeds 30 minutes before and 90 minutes after levothyroxine administration. 0820 (Given - Provider: Anu Wolff RN) 0636 (Given - Provider: Chelsy Bush, ЮЛИЯ) 0606 (Given - Provider: Soco Milton RN) magnesium sulfate in sterile water 50 [...] Anu Wolff RN)2102 (Given - Provider: Chelsy Bush RN) 0833 (Given - Provider: Anu Wolff RN)131 (Given - Provider: Anu Wolff RN)2022 (Given - Provider: Soco Milton RN) 0850 (Given - Provider: Suzette Arciniega RN) midodrine (PROAMATINE) tablet 10 mg 10 mg, Oral, 3 times daily, First dose on Sun10/09/24 at 1300 0820 (Given - Provider: Anu Wolff RN)1335 (Given - Provider: Anu Wolff RN)2103 (Given - Provider: Chelsy uBsh RN) 0833 (Given - Provider: Anu Wolff RN)1317 (Given - Provider: Anu Wolff RN)2022 (Given - Provider: Soco Milton RN) 0849 (Given - Provider: Suzette Arciniega RN) [...] 0200 0820 (Given - Provider: Anu Wolff RN)2102 (Given - Provider: Chelsy Bush RN) 0834 (Given - Provider: Anu Wolff RN)2022 (Given - Provider: Soco Milton RN) 0850 (Given - Provider: Suzette Arciniega, ЮЛИЯ) sertraline (ZOLOFT) tablet 50 mg (CANCELED) 50 mg, Oral, Daily, First dose on Sun10/16/24 at 0900 0833 (Given - Provider: Anu [...] 0200 0820 (Given - Provider: Anu Wolff RN)3 (Given - Provider: Chelsy Bush RN) 0833 (Given - Provider: Anu Wolff RN)2022 (Given - Provider: Soco Milton RN) 0849 (Given - Provider: Suzette Arciniega RN) zinc sulfate (ZINCATE) capsule 220 mg 220 mg, Oral, Daily, First dose on Sun10/06/24 at 0900, each capsule contains 50 mg elemental zinc 0820 (Given - Provider: Anu Wolff RN) 0834 (Given - Provider: Anu Wolff RN) 0849 (Given - Provider: Suzette Arciniega RN) PRN Medication Order 10/15/2024 10/16/2024 10/17/2024 acetaminophen [...] 3 times daily PRN, Itching, Starting on 10/10/24 at 1139 loratadine (CLARITIN) tablet 10 mg [...] 1205 2108 (See Alternative - Provider: Chelsy Bush RN) 0156 (See Alternative - Provider: Chelsy Bush RN)0635 (See Alternative - Provider: Chelsy Bush RN)1322 (See Alternative - Provider: Anu Wolff RN)2030 (See Alternative - Provider: Soco Milton RN) 0245 (See Alternative - Provider: Soco Milton RN)0848 (See Alternative - Provider: Suzette Arciniega, ЮЛИЯ) oxyCODONE (ROXICODONE) immediate release tablet 5 mg(Linked Group 1) 5 mg, Oral, Every 6 hours PRN, severe pain (NRS 7-10) or if patient is non-communicative (CPOT 6-8), Starting on Sun10/07/24 at 1205 2108 (Given - Provider: Chelsy Bush RN) 0156 (Given - Provider: Chelsy Bush RN)0635 (Given - Provider: Chelsy Bush RN)1322 (Given - Provider: Anu Wolff RN)2030 (Given - Provider: Soco Milton RN) 0245 (Given - Provider: Soco Milton RN)0848 (Given - Provider: Suzette Arciniega, ЮЛИЯ) Linked Groups Order Group 1: oxyCODONE (ROXICODONE) [...] documented as of this encounter Care Teams Hospitalist Physician Relationship Specialty Start Date End Date Enedina Mcguire NP [address] [place] [id number] PCP - General Internal Medicine 10/05/24 documented as of this encounter
--- OUTSIDE RECORDS SUMMARY | 2024-10-10 10:36 | XMS_ITS | Encounter Summary ---
Author Organization [facility] Address [facility] [place] [address] Care Team Providers Care Senior Interaction Designer Name Role Phone Enedina Mcguire NP Primary Care Provider [phone] Source Comments This information has been disclosed [...] release of HIV test results or diagnoses. FFL5296.24 Health Reason for Visit * Auth/Cert (Routine) Specialty Diagnoses / Procedures Referred By Shane hernadez Referred To Contact General Internal Medicine Diagnoses [facility] [address] [place] [address] Phone: tel: Referral ID Status Reason Start Date Expiration Date Visits Re quested Visits Authorized [id number] 1 1 Encounter Details Date Type Department Care Team (Late st Contact Info) Description 10/10/2024 10:36 AM EDT - 10/10/2024 11:06 AM EDT Surgery [facility] ENDOSCOPY [address] [place] [address] Lino Soto MD [address] [place] [id number] EGD Surgery Details Date/Time Status Location OR Service Patient Class Case Class Case Type Trauma Case? 10/10/2024 10:36 AM Posted ENDOSCOPY E2 Gastroenterology Inpatient EGD/Sm Bowel Panel 1 Procedure LRB Anes Op Region Wound Class Comments EGD N/A MAC (Monitor [facility]) Clean Contaminated Surgeon Surgeon Role Service Panel [...] any time in the past 12 m [facility], were you homeless or living in a [...] Kandy Fuentes - 10/17/2024 10:29 AM EDT [facility] Care Management Discharge Summary Patient name: Julien [...] post discharge: Not Applicable Kandy BAE RN [phone] * William Blount MD - 10/17/2024 8:50 AM EDT [facility] Inpatient Discharge Summary Patient: Julien Gilbert Age: 39 y.o. CSN: [id number] Date of Admission: 10/05/2024 Date of Discharge: [...] Case IDs Date Procedure Surgeon Location Status [id number] 10/10/24 EGD Lino Soto MD ENDOSCOPY Comp [id number] 10/14/24 Left Heart Cath Irving Matta MD [...] at 10/08/2024 1:12 PM EDT US Duplex Vtg-Ghh-Uslwtap Comp Final Result IMPRESSION: ABDOMEN 1. Cirrhotic [...] 90 tablet Refills: 0 naloxone 4 mg/actuation [place] Commonly known as: NARCAN Apply 1 spray [...] Your Medications These medications were [facility] to [facility] [address] [facility] [address] Hours: Sunday - Sunday: 8:00AM - 6:00PM FLUoxetine 20 MG capsule lactulose 10 gram/15 mL solution loratadine 10 mg tablet methocarbamoL 500 MG tablet midodrine 10 MG tablet naloxone 4 mg/actuation [place] oxyCODONE 5 MG immediate release tablet Discharge [...] Order Questions: Select Supplement: Boost-1 kcal/ml supplement ([facility] only) As listed above, low [...] AM EDT 10/17/2024 naloxone (NARCAN) 4 mg/actuation [place] Apply 1 spray in one nostril if [...] Hughes MD - 10/17/2024 10:23 AM EDT [facility] HEPATOLOGY PROGRESS NOTE Name: Julien Gilbert CSN: [id number] Consulted by: Chelsy Lerner MD Reason for [...] Yes Past Week naloxone (NARCAN) 4 mg/actuation [place] Apply 1 spray in one nostril if [...] nucleated cells, <2000 RBCs 10% Polynuclear, 90% Amador nuc. There were initial reports of gram [...] chemical dependency treatment as outpatient. - [facility] with no obstructive coronary disease - Psych eval for PTSD With recommendation of sertraline - Given his renal dysfunction, will plan to list for [facility] when he qualifies on 10/22/2024. Labs next week - Plan for d/c today Bobby Sidhu MD Transplant Environmental Construction Engineer Please see the body of the resident, [...] <30 until October 22. Waiting for [facility] today. ASSESSMENT NADIYA on CKD, last discharge creatinine 2.4 Baseline Creatinine 1.2-1.3, HRS- NADIAY as no response to holding lasix and [...] Staff. Jeremiah Gamino PGY4 Nephrology. Pager no. [phone] Chief Complaint No chief complaint on file. [...] Hypertension, Other hyperlipidemia (07/26/2024), Renal cell carcinoma ([facility]), Thrombocytopenia ([facility]), and Thyroid disease. he has a past [...] at 10/08/2024 1:12 PM EDT US Duplex Opj-Ylw-Ftqjljb Comp Final Result IMPRESSION: ABDOMEN 1. Cirrhotic [...] has been performed at [facility]. -CT Head w/o contrast -Imaging showed [...] Order Questions: Select Supplement: Boost-1 kcal/ml supplement ([facility] only) Code Status: Full Code Signed: WILLIAM BLOUNT MD 10/16/2024, 2:16 PM Cosigned by Chelsy Lerner MD at 10/16/2024 5:38 PM EDT Associated attestation - Chelsy Lerner MD - 10/16/2024 5:38 PM EDT [facility] Medicine Attending Supervision Note Julien [...] another specialty or practice, other licensed professional (PT/OT/LOCOMOTIVE ENGINEER DIESEL/RT), or a non-medical community professional: Hepatology, Interventional [...] due to positioning during LHC on 10/14. [place] the worst in CVR, but has improved [...] Kumar, DMITRY - 10/16/2024 1:08 PM EDT [facility] Medical Nutrition Therapy Follow-Up Diet Order/Nutrition Support: Regular diet, Boost TID - Vanilla preference Pertinent Information: This is a 39 year old male history of ETOH cirrhosis d/b HE, ascites with SBP who is admitted for AMS. Precipitant of his HE likely SBP. Diagnostic paracentesis at OSH reportedly showed 61 nucleated cells, <2000 RBCs 10% Polynuclear, 90% Amador nuc. There were initial reports of gram [...] Based on CBW of 119.5 kg Kcals/day: 5538-1056 (18-21 kcals/kg) Protein g/day: 119-143 (1-1.2 g/kg) [...] Kumar RD, LD Clinical Dietitian Contact via First Coverage * Jerad Hughes MD - 10/16/2024 11:03 AM EDT [facility] HEPATOLOGY PROGRESS NOTE Name: Julien Gilbert CSN: [id number] Consulted by: Chelsy Lerner MD Reason for [...] nucleated cells, <2000 RBCs 10% Polynuclear, 90% Amador nuc. There were initial reports of gram [...] chemical dependency treatment as outpatient. - [facility] with no obstructive coronary disease - Psych eval for PTSD With recommendation of sertraline - Given his renal dysfunction, will plan to list for [facility] when he qualifies on 10/22/2024. - Will follow Bobby Sidhu MD Transplant Environmental Construction Engineer Please see the body of the resident, [...] <30 until October 22. Waiting for [facility] today. ASSESSMENT NADIYA on CKD, last [...] on 10/08/2024 Iron%- Iron replete PLAN -[facility] yesterday- patient remains at risk of contrast related injury on top of exisiting NADIYA for 24-48 hrs after contrast load. -He is volume overloaded -patient needs to follow up closely with nephrology after discharge Thank you for allowing us to participate in this patient's care. Discussed with Consult Staff. Jeremiah Gamino PGY4 Nephrology. Pager no. [phone] Chief Complaint No chief complaint on file. [...] at 10/08/2024 1:12 PM EDT US Duplex Nyv-Coa-Octrnzf Comp Final Result IMPRESSION: ABDOMEN 1. Cirrhotic [...] tolerate Stress ECHO on 10/09 - [facility] today -Per GI recs, started on [...] has been performed at [facility]. -CT Head w/o contrast -Imaging showed [...] Order Questions: Select Supplement: Boost-1 kcal/ml supplement ([facility] only) Code Status: Full Code [...] another specialty or practice, other licensed professional (PT/OT/LOCOMOTIVE ENGINEER DIESEL/RT), or a non-medical community professional: Hepatology, Interventional [...] due to positioning during LHC on 10/14. [place] the worst in CVR, but has improved [...] Hughes MD - 10/15/2024 10:15 AM EDT [facility] HEPATOLOGY PROGRESS NOTE Name: Julien Gilbert CSN: [id number] Consulted by: Chelsy Lerner MD Reason for [...] nucleated cells, <2000 RBCs 10% Polynuclear, 90% Amador nuc. There were initial reports of gram [...] chemical dependency treatment as outpatient. - [facility] yesterday with no obstructive coronary disease - Psych eval for PTSD and medical management - Given his renal dysfunction, will plan to list for [facility] when he qualifies on 10/22/2024. - Will follow Bobby Sidhu MD Transplant Environmental Construction Engineer Please see the body of the resident, [...] Quan MD - 10/14/2024 2:34 PM EDT [facility] Department of Cardiovascular Health and [...] <30 until October 22. Waiting for [facility] today. ASSESSMENT NADIYA on CKD, last discharge creatinine 2.4 Baseline Creatinine 1.2-1.3, HRS- NADIYA as no response to holding lasix and albumin UA bland Urine lytes <10/< 15/ 50 Holding lasix give [facility] today Renal Function: Recent Labs 10/14/24 [...] Staff. Jeremiah Gamino PGY4 Nephrology. Pager no. [phone] Chief Complaint No chief complaint on file. [...] is Acute kidney injury superimposed on CKD ([facility]). No acute events overnight. Pt with chronic [...] at 10/08/2024 1:12 PM EDT US Duplex Kwv-Bxx-Zhigjff Comp Final Result IMPRESSION: ABDOMEN 1. Cirrhotic [...] tolerate Stress ECHO on 10/09 - [facility] today -Per GI recs, started on [...] has been performed at [facility]. -CT Head w/o contrast -Imaging showed [...] required dialysis. Patient is going for [facility] today and will receive contrast, okay [...] Order Questions: Select Supplement: Boost-1 kcal/ml supplement ([facility] only) Code Status: Full Code [...] another specialty or practice, other licensed professional (PT/OT/LOCOMOTIVE ENGINEER DIESEL/RT), or a non-medical community professional: Hepatology, Interventional [...] Hughes MD - 10/14/2024 7:42 AM EDT [facility] HEPATOLOGY PROGRESS NOTE Name: Julien Gilbert CSN: [id number] Consulted by: Chelsy Lerner MD Reason for [...] nucleated cells, <2000 RBCs 10% Polynuclear, 90% Amador nuc. There were initial reports of gram [...] ongoing. Transplant work up ongoing - [facility] today - Transplant nephrology following for [...] - Will follow Bobby Sidhu MD Transplant Environmental Construction Engineer Please see the body of the resident, [...] Staff. Jeremiah Gamino PGY4 Nephrology. Pager no. [phone] Chief Complaint No chief complaint on file. [...] and management for this patient. * Jerad Hughse MD - 10/13/2024 12:33 PM EDT [facility] HEPATOLOGY PROGRESS NOTE Name: Julien Gilbert CSN: [id number] Consulted by: Fouzia Rene MD Reason for [...] nucleated cells, <2000 RBCs 10% Polynuclear, 90% Amador nuc. There were initial reports of gram [...] ongoing. Transplant work up ongoing - [facility] today - Transplant nephrology following for [...] - Will follow Bobby Sidhu MD Transplant Environmental Construction Engineer Please see the body of the resident, [...] what will trigger him, like going to [employer] to eat wings. Julien, and Juilen's father were present in hospitalroom. Abdiaziz (Julien's [...] no psychomotor abnormalities Cognition: short term and oysterman memory intact Attitude: cooperative Affect: full range [...] Fabian, RD - 10/13/2024 10:49 AM EDT [facility] Medical Nutrition Therapy Reason(s) for [...] Order Questions: Select Supplement: Boost-1 kcal/ml supplement ([facility] only) Pertinent Information: Julien Gilbert is a 39 y.o. Male admitted for Acute kidney injury superimposedon CKD ([facility]) Pt noted to have waxing and waning [...] kg) Body mass index is 32.07 kg/m??. [place] Body Weight: 202 lbs (91.8 kg) +/- 10% Weight History: Wt Readings from Last 10 Encounters: 10/10/24 (!) 263 lb 8 oz (119.5 kg) 09/05/24 (!) 262 lb 9.6 oz (119.1 kg) 09/02/24 (!) 258 lb (117 kg) 08/17/24 (!) 242 lb 11.2 oz (110.1 kg) 07/28/24 (!) 245 lb (111.1 kg) Estimated Nutrition Needs: Based on CBW of 119.5 kg Kcals/day: 0561-3793 (18-21 kcals/kg) Protein g/day: 119-143 (1-1-2 g/kg) [...] Dietitian - Solid Organ Transplant Contact via ClickScanShare Chat * Eileen Schroeder MD, PhD - [...] at 10/08/2024 1:12 PM EDT US Duplex Jsm-Itu-Uativmf Comp Final Result IMPRESSION: ABDOMEN 1. Cirrhotic [...] has been performed at [facility]. -CT Head w/o contrast -Imaging showed [...] Order Questions: Select Supplement: Boost-1 kcal/ml supplement ([facility] only) Code Status: Full Code [...] I reviewed the documentation by the medical produce team member and agree as documented. Any [...] non-diagnostic due to hypotension. Plan for [facility] today, but now moved to tomorrow. [...] medically ready. Consider d/c home after [facility] tomorrow. FOUZIA RENE MD Attending Physician Department of Internal Medicine 10/13/2024 Medical Decision Making: // LEVEL 2 MOD One chronic illness with exacerbation, progression, or side effects of treatment Discussed with physician/SAWYER from another specialty or practice, other licensed professional (PT/OT/LOCOMOTIVE ENGINEER DIESEL/RT), or a non-medical community professional: Nephrology, Hepatology [...] at 10/08/2024 1:12 PM EDT US Duplex Yso-Pvu-Lkjtpbp Comp Final Result IMPRESSION: ABDOMEN 1. Cirrhotic [...] has been performed at [facility]. -CT Head w/o contrast -Imaging showed [...] Order Questions: Select Supplement: Boost-1 kcal/ml supplement ([facility] only) Code Status: Full Code [...] I reviewed the documentation by the medical produce team member and agree as documented. Any additions or clarifications are listed below. Daily plan was discussed with patient at bedside and questions addressed. Patient ID: Julien Gilbert is a 39 y.o. male currently admitted for Acute kidney injury superimposed on CKD ([facility]) Supplemental History/ ROS: No acute events overnight [...] for Acute kidney injury superimposed on CKD ([facility]) Active Problems: NADIYA (acute kidney injury) on [...] another specialty or practice, other licensed professional (PT/OT/LOCOMOTIVE ENGINEER DIESEL/RT), or a non-medical community professional: Nephrology, Hepatology [...] cardiac workup pre txp. pLan for [facility] Sunday Liver transplant workup per GI/ [...] hepatorenal syndrome.` Patient came from [facility], paracentesis was performed yesterday on 10/05? Fluid [...] 706.9 (H) 10/08/2024 No results found for: [id number] , FOLATE Lab Results Component Value Date [...] CRUR No results found for: MICROALBUR , [id number] In addition to the above an extensive [...] PM EDT ATTESTATION I saw Mr/Ms Julien iGlbert with renal [...] 4.6 10/12/2024 Lab Results Component Value Date [id number] 7.1 (L) 10/08/2024 PLAN Monitor renal panel [...] AM Colten Huertas MD, KISHOR LIN, CATHYF generation technician Div. of Nephrology [facility] E-mail: [email or web address] This note was completely edited, written and [...] MD Interval hx No issues. Pending [facility]. Assessment: Renal Function: Cr: 2.77 Bun: [...] cardiac workup pre txp. pLan for [facility] Sunday 4. Liver transplant workup per [...] hepatorenal syndrome.` Patient came from [facility], paracentesis was performed yesterday on 10/05? Fluid [...] 706.9 (H) 10/08/2024 No results found for: [id number] , FOLATE Lab Results Component Value Date [...] CRUR No results found for: MICROALBUR , [id number] In addition to the above an extensive [...] 3.5 10/11/2024 Lab Results Component Value Date CLHA63O 7.1 (L) 10/08/2024 PLAN Monitor renal panel [...] AM Colten Huertas MD, KISHOR LIN FNKF generation technician Div. of Nephrology [facility] E-mail: [email or web address] This note was completely edited, written and [...] at 10/08/2024 1:12 PM EDT US Duplex Nfz-Noc-Mlcoeft Comp Final Result IMPRESSION: ABDOMEN 1. Cirrhotic [...] from outside facility. Will engage with them daily([phone]. Ask to speak to a tech) about [...] has been performed at [facility]. -CT Head w/o contrast -Imaging showed [...] Order Questions: Select Supplement: Boost-1 kcal/ml supplement ([facility] only) Code Status: Full Code [...] I reviewed the documentation by the medical produce team member and agree as documented. Any [...] another specialty or practice, other licensed professional (PT/OT/LOCOMOTIVE ENGINEER DIESEL/RT), or a non-medical community professional: Nephrology, Hepatology, [...] Strictly monitor urine output No Indication for GLOBAL LOGISTICS MANAGER 3. Not a candidate for terlipressin per [...] Ignacio Queen MD Renal Fellow Pager # [phone] Chief Complaint No chief complaint on file. [...] hepatorenal syndrome.` Patient came from [facility], paracentesis was performed yesterday on 10/05? Fluid [...] PHOS -- < > 3.5 3.4 3.3 IMVF22S 7.1* -- -- -- -- < > = values in this interval not displayed. Lab Results Component Value Date IRON 81 10/08/2024 TIBC SEE COMMENT 10/08/2024 FERRITIN 706.9 (H) 10/08/2024 No results found for: [id number] , FOLATE Lab Results Component Value Date [...] CRUR No results found for: MICROALBUR , [id number] In addition to the above an extensive [...] 3.3 10/10/2024 Lab Results Component Value Date LSYX15L 7.1 (L) 10/08/2024 PLAN Continue IV albumin [...] AM Colten Huertas MD, KISHOR LIN, FNDeclanF generation technician Div. of Nephrology [facility] E-mail: [email or web address] This note was completely edited, written and [...] to follow pt while pt is at [facility]. * Jodi Ortiz PharmD - 10/10/2024 10:27 AM EDT Clinical Pharmacy Service: Vancomycin Consult Progress Note Patient has been transitioned off of vancomycin therapy per team notes and orders. Pharmacy will sign-off at this time, please do not hesitate to consult again as needs arise. Thank you for involving pharmacy in the care of this patient. Jodi Ortiz PharmD Clinical [address] [employer], Internal Medicine Preferred contact: [employer] Secure Chat Clinical Swoszae-Ao-Lkwm Pager: [phone] October 10, 2024 10:27 AM Laboratory Data [...] 10/07/2024 10:50 PM Giardia Cryptosporidium Antigens Final [id number] 10/07/2024 10:50 PM Ova and Parasite Comprehensive w/ Giardia/Crypto Final [id number] Feces 10/06/2024 1:04 AM #2 Blood culture-Peripheral site 2 Preliminary [id number] Peripheral 10/06/2024 1:04 AM #1 Blood culture-Peripheral site 1 Preliminary [id number] Peripheral Pharmacokinetics Lab Results (Last 7 days) Today 522 Yesterday 10/08 0536 Vanc Rdm 16.4 11.0 16.0 * Gerri Peterson MD - 10/10/2024 10:09 AM EDT [facility] HEPATOLOGY PROGRESS NOTE Name: Julien Gilbert CSN: [id number] Consulted by: Fouzia Rene MD Reason for [...] nucleated cells, <2000 RBCs 10% Polynuclear, 90% Amador nuc. Per OSH reports, ascitic fluid cultures [...] to achieving target HR. -cardiology consult for [facility] on Sunday - Transplant nephrology following [...] from the original note were not included. [facility] Clinical Pharmacy Service: Vancomycin Monitoring Consult Julien [...] in sodium chloride 0.9 % 250 mL Vuui0Tjh (Completed) 1,500 mg Once 10/09/2024 10/09/2024 Admin Instructions: Contact pharmacy if there is a question/concern of whether vancomycin should begiven based on serum drug levels. Use Sngj1Lhi Adapter - Mix Thoroughly Before Administration Route: Intravenous vancomycin (VANCOCIN) 1,500 mg in sodium chloride 0.9 % 250 mL Enfy0Egq 1,500 mg Once 10/10/2024 10/11/2024 Admin Instructions: Contact pharmacy if there is a question/concern of whether vancomycin should begiven based on serum drug levels. Use Gznc3Kbz Adapter - Mix Thoroughly Before Administration Route: [...] in sodium chloride 0.9 % 250 mL Exaa2Dht 1,500 mg 166.7 mL/hr 10/08/24 1259 New Bag vancomycin (VANCOCIN) 1,000 mg in sodium chloride 0.9 % 250 mL Jyhe1Kja 1,000 mg 250 mL/hr --Objective Data-- Vitals: [...] 53 53 54 Creatinine 2.85 2.89 3.04 [place] body weight: 86.8 kg (191 lb 5.7 oz) Adjusted ideal body weight: 99.9 kg (220 lb 3.5 oz) Estimated CrCl: ~35-45 mL/min --Cultures-- Microbiology Results Date and Time Order Name Sensitivity Status Organisms Specimen ID Source 10/07/2024 10:50 PM Giardia Cryptosporidium Antigens Final [id number] 10/07/2024 10:50 PM Ova and Parasite Comprehensive w/ Giardia/Crypto Final [id number] Feces 10/06/2024 1:04 AM #2 Blood culture-Peripheral site 2 Preliminary [id number] Peripheral 10/06/2024 1:04 AM #1 Blood culture-Peripheral site 1 Preliminary [id number] Peripheral --Vancomycin Concentrations-- Lab Results (Last 7 [...] for the consult. Jodi Ortiz PharmD Clinical [address] [address] [employer], Internal Medicine Preferred contact: [employer] Clinical Pzxfgxg-Ip-Ybos Pager: [phone] October 10, 2024 9:13 AM * Eileen Schroeder MD, PhD - 10/10/2024 8:17 AM EDT Department of Internal Medicine Daily Progress Note Chief Complaint / Reason for Follow-Up Julien Gilbert is a 39 y.o. male on hospital day 5. The principal reason for today's follow up visit is Acute kidney injury superimposed on CKD ([facility]). DREW Pt was very conversational today. A&O [...] at 10/08/2024 1:12 PM EDT US Duplex Pro-Lyn-Avsdwqd Comp Final Result IMPRESSION: ABDOMEN 1. Cirrhotic [...] from outside facility. Will engage with them daily([phone]. Ask to speak to a tech) about [...] has been performed at [facility]. -CT Head w/o contrast -Imaging showed [...] Order Questions: Select Supplement: Boost-1 kcal/ml supplement ([facility] only) Code Status: Full Code [...] I reviewed the documentation by the medical produce team member and agree as documented. Any additions or clarifications are listed below. Daily plan was discussed with patient at bedside and questions addressed. Patient ID: Julien Gilbert is a 39 y.o. male currently admitted for Acute kidney injury superimposed on CKD ([facility]) Supplemental History/ ROS: No acute events overnight [...] for Acute kidney injury superimposed on CKD ([facility]) Active Problems: Spontaneous Bacterial Peritonitis ([facility]): Cultures from OSH were reported as growing gram-positive organisms. Today, after secondary review, a rep from OSH lab reports that they do not think the Gram+ organisms were seen. He remains afebrile and vital signs have been stable. - He received 4 days of vancomycin. Will d/c today. - Continue ceftriaxone for full days. [facility] Anemia: Multiple contributors. S/p 1 unit PRBC. Hemoglobin responded appropriately and remained stable. Will continue to monitor. Metabolic encephalopathy: Mostly resolved. Likely related to combination of hepatic, metabolic, andpossibly infectious insults. - Continue home lactulose and rifaximin Decompensated cirrhosis ([facility]): Appreciate hepatology consult. He has started his [...] IR. NADIYA (acute kidney injury) on CKD ([facility]): Appreciate nephrology consult. Likely due to hepatorenal [...] another specialty or practice, other licensed professional (PT/OT/LOCOMOTIVE ENGINEER DIESEL/RT), or a non-medical community professional: Nephrology, Hepatology, [...] Strictly monitor urine output No Indication for GLOBAL LOGISTICS MANAGER Not a candidate for terlipressin per liver due to HE, liver and kidney failure, on midodrine tid. Considering para today, cardiac workup pre txp Liver transplant workup per GI/ Primary team, considering for [facility], seen by renal transplant team Thank you for allowing us to participate in this patient's care. Discussed with Consult Staff. Ignacio Queen MD Renal Fellow Pager # [phone] Chief Complaint No chief complaint on file. [...] hepatorenal syndrome.` Patient came from [facility], paracentesis was performed yesterday on 10/05? Fluid [...] 9.0 9.3 PHOS -- 3.5 3.5 3.4 PZIO09Y 7.1* -- -- -- Lab Results Component Value Date IRON 81 10/08/2024 TIBC SEE COMMENT 10/08/2024 FERRITIN 706.9 (H) 10/08/2024 No results found for: VFEQDCNS77 , FOLATE Lab Results Component Value Date [...] CRUR No results found for: MICROALBUR , [id number] In addition to the above an extensive [...] 3.4 10/09/2024 Lab Results Component Value Date CRWD67D 7.1 (L) 10/08/2024 PLAN Continue IV albumin [...] PM Colten Huertas MD, KISHOR LIN, CATHYF generation technician Div. of Nephrology [facility] E-mail: [email or web address] This note was completely edited, written and [...] Peterson MD - 10/09/2024 1:07 PM EDT [facility] HEPATOLOGY PROGRESS NOTE Name: Julien Gilbert CSN: [id number] Consulted by: Fouzia Rene MD Reason for [...] nucleated cells, <2000 RBCs 10% Polynuclear, 90% Amador nuc. Fluid cultures reportedly grew gram + [...] from the original note were not included. [facility] Clinical Pharmacy Service: Vancomycin Monitoring Consult Julien [...] in sodium chloride 0.9 % 250 mL Lsjm3Omh (Completed) 1,000 mg Once 10/08/2024 10/08/2024 Admin Instructions: Contact pharmacy if there is a question/concern of whether vancomycin should begiven based on serum drug levels. Use Ityx8Awr Adapter - Mix Thoroughly Before Administration Route: Intravenous vancomycin (VANCOCIN) 1,500 mg in sodium chloride 0.9 % 250 mL Pfkk5Zzq 1,500 mg Once 10/09/2024 10/10/2024 Admin Instructions: Contact pharmacy if there is a question/concern of whether vancomycin should begiven based on serum drug levels. Use Bofx6Skd Adapter - Mix Thoroughly Before Administration Route: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 DIESEL: 39 y/o male with a past medical [...] 2. No intracranial mass effect or hemorrhage. LOCOMOTIVE ENGINEER DIESEL Hx: 08/15/24: BSE with recs for regular [...] if new needs arise. No further acute LOCOMOTIVE ENGINEER DIESEL services are warranted for speech, language, or cognition at this time. Plan/Recommendation: - Discharge from LOCOMOTIVE ENGINEER DIESEL - no acute needs at this time - LOCOMOTIVE ENGINEER DIESEL at discharge is not recommended Problem List Problem List[1] Past Medical History Past Medical History: Diagnosis Date Alcoholic cirrhosis of liver (CMS-HCC) Alcoholic hepatitis Esophageal varices (CMS-HCC) Hepatorenal syndrome (CMS-HCC) Hypertension Other hyperlipidemia 07/26/2024 Renal cell carcinoma ([facility]) Thrombocytopenia ([facility]) Thyroid disease Past Surgical History No past [...] Primary Mode of Expression: Verbal Primary Language: [place]orese Confrontation Naming: Within Functional Limits Word Level [...] Patient educated on: Family educated on;role of LOCOMOTIVE ENGINEER DIESEL, current POC, and discharge recommendations forSLP therapy Patient response: Patient verbalized understanding;Family demonstrated understanding End of Session: Patient was left in bed with call light within reach and all needs met. Gladys Banda M.A, YUE-LOCOMOTIVE ENGINEER DIESEL Speech Language Pathologist--Rehab Services [facility] MBSImP Certified Clinician Time Start Time: 1055 Stop Time: 1109 Time Calculation (min): 14 min Charges $Eval Speech Sound Prd w/Lng Comp & Expr: 1 Procedure Patient Class Inpatient [1] Patient Active Problem List Diagnosis Decompensated cirrhosis ([facility]) NADIYA (acute kidney injury) ([facility]) Alcohol use disorder Metabolic encephalopathy Hypertension Other hyperlipidemia Thrombocytopenia ([facility]) Renal mass, left Abdominal pain Hypokalemia CKD (chronic kidney disease) stage 4, GFR 15-29 ml/min ([facility]) Metabolic acidosis with normal anion gap and [...] NAGMA related to diarrhea No Indication for GLOBAL LOGISTICS MANAGER Liver transplant workup per GI/ Primary team Thank you for allowing us to participate in this patient's care. Discussed with Consult Staff. Ignacio Queen MD Renal Fellow Pager # [phone] Chief Complaint No chief complaint on file. [...] hepatorenal syndrome.` Patient came from [facility], paracentesis was performed yesterday on 10/05? Fluid [...] TIBC , FERRITIN No results found for: [id number] , FOLATE Lab Results Component Value Date [...] CRUR No results found for: MICROALBUR , [id number] In addition to the above an extensive [...] 5.3 (H) 10/06/2024 No results found for: CNOE11H PLAN Patient seen labs reviewed Unclear baseline serum creat Recent episode of acute kidney injury requiring hospitalization Now has agaz-ve-ouca episode of NADIYA Underwent paracentesis 3 days [...] team Colten Huertas MD, KISHOR LIN, FNDeclanF generation technician Div. of Nephrology [facility] E-mail: [email or web address] * Jerad Hughes MD - 10/06/2024 9:28 AM EDTAssociated Order(s): IP CONSULT TO LIVER [facility] HEPATOLOGY CONSULT NOTE Name: Julien Gilbert CSN: [id number] Consulted by: Angie Blanchard MD Reason for Consult: Decompensated Cirrhosis History of Present Illness: Julien Gilbert is a 39 y.o. with history of decompensated EtOH cirrhosis (complicated by EV, HRS, ascites, HE), HTN, and CKD. Patient admitted as transfer from [facility] ED with confusion and lethargy. Diagnostic paracentesis [...] to diarrhea. Patient was recently referred to [facility] for liver transplant evaluation. Patient was evaluated by transplant elementary school social worker on 09/25/2024 and it was [...] HEPBIGM Nonreactive 09/03/2024 No results found for: JHON No results found for: SMOOTHMUSCAB No results [...] verbalize understanding. Transported via wheelchair to the [facility] to bepicked up for a lyft. * Dylan Dong RN - 10/14/2024 2:20 PM EDT Pt returned from slabber status post [facility]. Bedside report received from slabber, RN. Pt placed on telemetry, serial vital signs set up. Access site: RRA. Site is soft, no bleeding/hematoma, [address] Sheath removed in slabber at 1402, TR band placed to site [...] EDT Pt arrived with and admitted into [employer] from [facility] with AMS. Hosiptalist paged to the bedside [...] Patient will remain free of falls Goal: Thomson Fall Precautions Outcome: Progressing Problem: Daily Care [...] Alcoholic cirrhosis of liver (CMS-HCC), Esophageal varices ([facility]), Hepatorenal syndrome ([facility]), Hypertension, Other hyperlipidemia (07/26/2024), Renal cell carcinoma ([facility]), Thrombocytopenia ([facility]), and Thyroid disease. PCP: Enedina Mcguire NP Home Pharmacy: [facility] [address] [place] [address] [address] [facility] [address] [facility] [id number] Medical Insurance Coverage: Payor: [facility] / Plan: [facility] GLOBAL [...] available for discharge planning needs. Kandy BAE [facility] * Plan of Care - [...] Patient will remain free of falls Goal: Thomson Fall Precautions Outcome: Progressing Problem: Daily Care [...] Patient will remain free of falls Goal: Thomson Fall Precautions Outcome: Progressing Problem: Daily Care [...] Kandy Fuentes - 10/15/2024 2:26 PM EDT [facility] Case Management/Social Work Department Progress Note Patient Information Patient Name: Julien Gilbert Hospital day: 10 Inpatient/Observation: Inpatient Level of Care: blue Admit date: 10/05/2024 Admission diagnosis: AMS PMH: has a past medical history of Alcoholic cirrhosis of liver (CMS-HCC), Esophageal varices ([facility]), Hepatorenal syndrome ([facility]), Hypertension, Other hyperlipidemia (07/26/2024), Renal cell carcinoma (CMS-HCC), Thrombocytopenia ([facility]), and Thyroid disease. PCP: Enedina Mcguire NP Home Pharmacy: [facility] [place] [address] [address] [facility] [address] [facility] [facility] [id number] Medical Insurance Coverage: Payor: [facility] / Plan: [facility] GLOBAL [...] Patient will remain free of falls Goal: Thomson Fall Precautions Outcome: Progressing Problem: Daily Care [...] Kandy Fuentes - 10/14/2024 11:10 AM EDT [facility] Case Management/Social Work Department Progress Note Patient Information Patient Name: Julien Gilbert Hospital day: 9 Inpatient/Observation: Inpatient Level of Care: blue Admit date: 10/05/2024 Admission diagnosis: AMS PMH: has a past medical history of Alcoholic cirrhosis of liver ([facility]), Esophageal varices ([facility]), Hepatorenal syndrome ([facility]), Hypertension, Other hyperlipidemia (07/26/2024), Renal cell carcinoma ([facility]), Thrombocytopenia ([facility]), and Thyroid disease. PCP: Enedina Mcguire NP Home Pharmacy: [facility] [address] [place] [address] [place] [address] [facility] [address] [facility] [id number] Medical Insurance Coverage: Payor: [facility] / Plan: [facility] GLOBAL [...] Kandy Fuentes - 10/13/2024 11:53 AM EDT [facility] Case Management/Social Work Department Progress Note Patient Information Patient Name: Julien Gilbert Hospital day: 8 Inpatient/Observation: Inpatient Level of Care: blue Admit date: 10/05/2024 Admission diagnosis: AMS PMH: has a past medical history of Alcoholic cirrhosis of liver (CMS-HCC), Alcoholic hepatitis, Esophageal varices ([facility]), Hepatorenal syndrome ([facility]), Hypertension, Other hyperlipidemia (07/26/2024), Renal cell carcinoma ([facility]), Thrombocytopenia ([facility]), and Thyroid disease. PCP: Enedina Mcguire NP Home Pharm[facility]: [facility] [address] [facility] [address] [address] [facility] [address] [facility] [address] Medical Insurance Coverage: Payor: [facility] / Plan: [facility] GLOBAL [...] available for discharge planning needs. Kandy BAE [facility] * Plan of Care - [...] Kandy Fuentes - 10/10/2024 12:00 PM EDT [facility] Case Management/Social Work Department Progress Note Patient [...] disease. PCP: Enedina Mcguire NP Home Pharmacy: [facility] [address] [place], [place] [address] [address] [facility] [address] [facility] [id number] Medical Insurance Coverage: Payor: [facility] / Plan: [facility] GLOBAL [...] available for discharge planning needs. Kandy BAE [facility] * Plan of Care - [...] Patient will remain free of falls Goal: Thomson Fall Precautions Outcome: Progressing Problem: Daily Care [...] Patient will remain free of falls Goal: Thomson Fall Precautions Outcome: Progressing Problem: Daily Care [...] Kandy Fuentes - 10/09/2024 12:05 PM EDT [facility] Case Management/Social Work Department Progress Note Patient [...] disease. PCP: Enedina Mcguire NP Home Pharmacy: [facility] [address] [place] [facility] [place] [address] [address] [facility] [address] [facility] [id number] Medical Insurance Coverage: Payor: [facility] / Plan: [facility] iPinYou / Product Type: *No Producttype* / Other [...] Kandy Fuentes - 10/08/2024 3:41 PM EDT [facility] Case Management/Social Work Department Progress Note Patient Information Patient Name: Julien Gilbert Hospital day: 3 Inpatient/Observation: Inpatient Level of Care: blue Admit date: 10/05/2024 Admission diagnosis: AMS PMH: has a past medical history of Alcoholic cirrhosis of liver ([facility]), Alcoholic hepatitis, Esophageal varices (CMS-HCC), Hepatorenal syndrome ([facility]), Hypertension, Other hyperlipidemia (07/26/2024), Renal cell carcinoma ([facility]), Thrombocytopenia ([facility]), and Thyroid disease. PCP: Enedina Mcguire NP Home Pharmacy: [facility] [address] [place] [address] [facility] [address] [facility] [id number] Medical Insurance Coverage: Payor: [facility] / Plan: [facility] i[employer]You / Product Type: *No Producttype* / Other [...] Kandy Fuentes - 10/07/2024 3:22 PM EDT [facility] Case Management/Social Work Department Progress Note Patient Information Patient Name: Julien Gilbert Hospital day: 2 Inpatient/Observation: Inpatient Level of Care: blue Admit date: 10/05/2024 Admission diagnosis: AMS PMH: has a past medical history of Alcoholic cirrhosis of liver (CMS-HCC), Alcoholic hepatitis, Esophageal varices (CMS-HCC), Hepatorenal syndrome (CMS- HCC), Hypertension, Other hyperlipidemia (07/26/2024), Renal cell carcinoma ([facility]), Thrombocytopenia ([facility]), and Thyroid disease. PCP: Enedina Mcguire NP Home Pharmacy: [address] [address] [facility] [address] [facility] [id number] Medical Insurance Coverage: Payor: [facility] / Plan: [facility] GLOBAL [...] Patient will remain free of falls Goal: Thomson Fall Precautions Outcome: Progressing Problem: Daily Care [...] IGG ANTIBODY Routine 10/07/2024 6:37 PM EDT [id number] (AAT) QUANTITATION & MUTATION Routine 10/07/2024 6:37 [...] Routine 10/07/2024 6:19 PM EDT US DUPLEX IGI-TYRHBR-UYHMZPT COMPLETE Routine 10/07/2024 3:48 PM EDT US [...] 10/06/2024 4:01 AM EDT UPPER RESPIRATORY VIRAL/BACTERIAL PANEL-INSTRUCTOR OF SPANISH ONLY Routine 10/06/2024 3:12 AM EDT XR [...] - 146 mmol/L 10/17/2024 7:02 AM EDT [facility] Potassium 3.4(L) 3.5 - 5.3 mmol/L 10/17/2024 7:02 AM EDT [facility] Chloride 104 98 - 110 mmol/L 10/17/2024 7:02 AM EDT [facility] CO2 18(L) 21 - 33 mmol/L 10/17/2024 7:02 AM EDT [facility] Anion Gap 11 3 - 16 mmol/L 10/17/2024 7:02 AM EDT [facility] BUN 54(H) 7 - 25 mg/dL 10/17/2024 7:02 AM EDT [facility] Creatinine 2.88(H) 0.60 - 1.30 mg/dL 10/17/2024 7:02 AM EDT [facility] Glucose 127(H) 70 - 100 mg/dL 10/17/2024 7:02 AM EDT [facility] Calcium 8.2(L) 8.6 - 10.3 mg/dL 10/17/2024 7:02 AM EDT [facility] Phosphorus 4.5 2.1 - 4.7 mg/dL 10/17/2024 7:02 AM EDT [facility] Albumin 3.1(L) 3.5 - 5.7 g/dL 10/17/2024 7:02 AM EDT [facility] Osmolality, Calculated 292 278 - 305 mOsm/kg 10/17/2024 7:02 AM EDT [facility] EGFR 27 10/17/2024 7:02 AM EDT [facility] Comment:As of 2021, the estimated [...] MD, PhD LAB BLOOD ORDERABLES Final Result [facility] [address] [place] [address], [facility] * (ABNORMAL) Protime-INR (10/16/2024 6:31 AM EDT) Protime 22.5(H) 12.1 - 15.1 seconds 10/16/2024 8:04 AM EDT [facility] INR 1.9(H) 0.9 - 1.1 10/16/2024 8:04 AM EDT [facility] Comment: RECOMMENDED THERAPEUTIC RANGES USING INR : Stable oral anticoagulant therapy: 2.0 - 3.0 Mechanical prosthetic heart valve: 2.5 - 3.5 Recurrent acute myocardial infarction: 2.5 - 3.5 Plasma 10/16/2024 6:31 AM EDT 10/16/2024 6:56 AM EDT Eileen Schroeder MD, PhD LAB BLOOD ORDERABLES Final Result Performing Organization Address City/State/[facility] Co de Phone Number [facility] [address] [place] [address], [facility] * (ABNORMAL) Hepatic Function Panel (10/16/2024 6:31 AM EDT) Total Bilirubin 7.6(H) 0.0 - 1.5 mg/dL 10/16/2024 7:24 AM EDT [facility] Bilirubin, Direct 3.97(H) 0.00 - 0.40 mg/dL 10/16/2024 7:24 AM EDT [facility] AST 45(H) 13 - 39 U/L 10/16/2024 7:24 AM EDT [facility] ALT 23 7 - 52 U/L 10/16/2024 7:24 AM EDT [facility] Alkaline Phosphatase 137(H) 36 - 125 U/L 10/16/2024 7:24 AM EDT [facility] Total Protein 5.1(L) 6.4 - 8.9 g/dL 10/16/2024 7:24 AM EDT [facility] Albumin 3.4(L) 3.5 - 5.7 g/dL 10/16/2024 7:24 AM EDT [facility] Bilirubin, Indirect 3.63(H) 0.00 - 1.10 mg/dL 10/16/2024 7:24 AM EDT [facility] Plasma 10/16/2024 6:31 AM EDT 10/16/2024 6:56 AM EDT Eileen Schroeder MD, PhD LAB BLOOD ORDERABLES Final Result [facility] [address] [facility]. [address] * Magnesium (10/16/2024 6:31 AM EDT) Magnesium 2.1 1.5 - 2.5 mg/dL 10/16/2024 7:24 AM EDT [facility] Plasma 10/16/2024 6:31 AM EDT 10/16/2024 6:56 AM EDT us Eileen Schroeder MD, PhD LAB BLOOD ORDERABLES Final Result [facility] [address] * (ABNORMAL) Renal Function Panel w/EGFR (10/16/2024 6:31 AM EDT) Sodium 135 133 - 146 mmol/L 10/16/2024 7:24 AM EDT [facility] Potassium 3.7 3.5 - 5.3 mmol/L 10/16/2024 7:24 AM EDT [facility] Chloride 106 98 - 110 mmol/L 10/16/2024 7:24 AM EDT [facility] CO2 16(L) 21 - 33 mmol/L 10/16/2024 7:24 AM EDT [facility] Anion Gap 13 3 - 16 mmol/L 10/16/2024 7:24 AM EDT [facility] BUN 55(H) 7 - 25 mg/dL 10/16/2024 7:24 AM EDT [facility] Creatinine 3.20(H) 0.60 - 1.30 mg/dL 10/16/2024 7:24 AM EDT [facility] Glucose 121(H) 70 - 100 mg/dL 10/16/2024 7:24 AM EDT [facility] Calcium 8.5(L) 8.6 - 10.3 mg/dL 10/16/2024 7:24 AM EDT [facility] Phosphorus 4.2 2.1 - 4.7 mg/dL 10/16/2024 7:24 AM EDT [facility] Albumin 3.4(L) 3.5 - 5.7 g/dL 10/16/2024 7:24 AM EDT [facility] Osmolality, Calculated 296 278 - 305 mOsm/kg 10/16/2024 7:24 AM EDT [facility] EGFR 24 10/16/2024 7:24 AM EDT [facility] Comment:As of 2021, the estimated [...] MD, PhD LAB BLOOD ORDERABLES Final Result [facility] [address] [place] [address], [facility] * (ABNORMAL) CBC (10/16/2024 6:31 AM EDT) WBC 5.8 3.8 - 10.8 10E3/uL 10/16/2024 8:00 AM EDT [facility] RBC 2.16(L) 4.20 - 5.80 10E6/uL 10/16/2024 8:00 AM EDT [facility] Hemoglobin 7.7(L) 13.2 - 17.1 g/dL 10/16/2024 8:00 AM EDT [facility] Hematocrit 22.1(L) 38.5 - 50.0 % 10/16/2024 8:00 AM EDT [facility] MCV 102.3(H) 80.0 - 100.0 fL 10/16/2024 8:00 AM EDT [facility] MCH 35.7(H) 27.0 - 33.0 pg 10/16/2024 8:00 AM EDT [facility] MCHC 34.9 32.0 - 36.0 g/dL 10/16/2024 8:00 AM EDT [facility] RDW 17.7(H) 11.0 - 15.0 % 10/16/2024 8:00 AM EDT [facility] Platelets 43(L) 140 - 400 10E3/uL 10/16/2024 8:00 AM EDT [facility] Comment: Specimen checked for clots. None detected. Slide Reviewed for PLT Clumps. None Seen. Platelet Estimate Decreased 10/16/2024 8:00 AM EDT [facility] MPV 8.6 7.5 - 11.5 fL 10/16/2024 8:00 AM EDT [facility] Whole Blood 10/16/2024 6:31 AM EDT 10/16/2024 6:57 AM EDT Narrative [facility] - 10/16/2024 8:00 AM EDT Peripheral blood smear was scanned per review criteria approved by the laboratory medical dir. us Eileen Schroeder MD, PhD LAB BLOOD ORDERABLES Final Result [facility] [address] [place] [address], [facility] * CARISA Rhythm Strip - Scan (10/15/2024 8:02 PM EDT) us Scanning [place] SCAN DOCS - NO RESULTS Final Res ult * CARISA Rhythm Strip - Scan (10/15/2024 8:02 PM EDT) us Scanning [place] SCAN DOCS - NO RESULTS Final Res ult * Prepare Platelets, leukoreduced, 1 Units (10/15/2024 6:16 AM EDT) [facility] Product Code N3860L96 [facility] Unit Number [id number] [facility] Dispense Status Presumed Transfused_PT [facility] Blood Expiration Date [id number] [facility]LL Coding System CKUN028 [facility] Blood Bank Product Eleazar Nguyễn MD BLOOD BANK PRODUCT ORDE RABJOSE R Final Result [facility] * Prepare Fresh Frozen Plasma, 1 Units (10/15/2024 6:15 AM EDT) Product Code T0509Q30 [facility] Unit Number [id number] [facility] Dispense Status Presumed Transfused_PT [facility]LL Blood Expiration Date HCLL Coding System BELV213 [facility] Blood Bank Product Eleazar Nguyễn MD BLOOD BANK PRODUCT ORDE RABJOSE R Final Result Performing Organization Address City/[facility]/ZIP Co de Phone Number HCLL * [...] BLOOD ORDERABLES Final Result Performing Organization Address City/[facility]/ZIP Co de Phone Number [facility] [address] * (ABNORMAL) Hepatic Function Panel (10/15/2024 6:08 AM EDT) Total Bilirubin 7.1(H) 0.0 - 1.5 mg/dL 10/15/2024 6:45 AM EDT [facility] Bilirubin, Direct 3.77(H) 0.00 - 0.40 mg/dL 10/15/2024 6:45 AM EDT [facility] AST 39 13 - 39 U/L 10/15/2024 6:45 AM EDT [facility] ALT 22 7 - 52 U/L 10/15/2024 6:45 AM EDT [facility] Alkaline Phosphatase 115 36 - 125 U/L 10/15/2024 6:45 AM EDT [facility] Total Protein 4.8(L) 6.4 - 8.9 g/dL 10/15/2024 6:45 AM EDT [facility] Albumin 3.2(L) 3.5 - 5.7 g/dL 10/15/2024 6:45 AM EDT [facility] Bilirubin, Indirect 3.33(H) 0.00 - 1.10 mg/dL 10/15/2024 6:45 AM EDT [facility] Plasma 10/15/2024 6:08 AM EDT 10/15/2024 6:17 AM EDT Eileen Schroeder MD, PhD LAB BLOOD ORDERABLES Final Result Performing Organization Address [facility] Co de Phone Number [facility] [address] * Magnesium (10/15/2024 6:08 AM EDT) Magnesium 1.8 1.5 - 2.5 mg/dL 10/15/2024 6:45 AM EDT [facility] Plasma 10/15/2024 6:08 AM EDT 10/15/2024 6:17 AM EDT Eileen Schroeder MD, PhD LAB BLOOD ORDERABLES Final Result Performing Organization Address City/[facility]/ZIP Co de Phone Number [facility] [address] [place] [address], [place] * (ABNORMAL) Renal Function Panel w/EGFR (10/15/2024 6:08 AM EDT) Sodium 135 133 - 146 mmol/L 10/15/2024 6:45 AM EDT [facility] Potassium 3.4(L) 3.5 - 5.3 mmol/L 10/15/2024 6:45 AM EDT [facility] Chloride 107 98 - 110 mmol/L 10/15/2024 6:45 AM EDT [facility] CO2 17(L) 21 - 33 mmol/L 10/15/2024 6:45 AM EDT [facility] Anion Gap 11 3 - 16 mmol/L 10/15/2024 6:45 AM EDT [facility] BUN 55(H) 7 - 25 mg/dL 10/15/2024 6:45 AM EDT [facility] Creatinine 2.88(H) 0.60 - 1.30 mg/dL 10/15/2024 6:45 AM EDT [facility] Glucose 125(H) 70 - 100 mg/dL 10/15/2024 6:45 AM EDT [facility] Calcium 8.4(L) 8.6 - 10.3 mg/dL 10/15/2024 6:45 AM EDT [facility] Phosphorus 3.9 2.1 - 4.7 mg/dL 10/15/2024 6:45 AM EDT [facility] Albumin 3.2(L) 3.5 - 5.7 g/dL 10/15/2024 6:45 AM EDT [facility] Osmolality, Calculated 297 278 - 305 mOsm/kg 10/15/2024 6:45 AM EDT [facility] EGFR 27 10/15/2024 6:45 AM EDT [facility] Comment:As of 2021, the estimated [...] MD, PhD LAB BLOOD ORDERABLES Final Result [facility] [address] [place] [address], [facility] * (ABNORMAL) CBC (10/15/2024 6:08 AM EDT) WBC 4.6 3.8 - 10.8 10E3/uL 10/15/2024 6:51 AM EDT [facility] RBC 1.94(L) 4.20 - 5.80 10E6/uL 10/15/2024 6:51 AM EDT [facility] Hemoglobin 7.1(L) 13.2 - 17.1 g/dL 10/15/2024 6:51 AM EDT [facility] Hematocrit 19.6(L) 38.5 - 50.0 % 10/15/2024 6:51 AM EDT [facility] MCV 100.8(H) 80.0 - 100.0 fL 10/15/2024 6:51 AM EDT [facility] MCH 36.7(H) 27.0 - 33.0 pg 10/15/2024 6:51 AM EDT [facility] MCHC 36.4(H) 32.0 - 36.0 g/dL 10/15/2024 6:51 AM EDT [facility] RDW 17.3(H) 11.0 - 15.0 % 10/15/2024 6:51 AM EDT [facility] Platelets 34(L) 140 - 400 10E3/uL 10/15/2024 6:51 AM EDT [facility] Comment:Specimen checked for clots. None detected. MPV 8.7 7.5 - 11.5 fL 10/15/2024 6:51 AM EDT [facility] Whole Blood 10/15/2024 6:08 AM EDT 10/15/2024 6:17 AM EDT us Eileen Schroeder MD, PhD LAB BLOOD ORDERABLES Final Result Performing Organization Address [facility] de Phone Number [facility] [address] [place] [address] * PRA-HLA Ab Screen (Cytotoxic) (10/15/2024 6:08 AM EDT) [facility] The request and specimen(s) for this test have been received and transported to the [facility] at [address] [place] [address]. The [facility] will report results directly to the client. 10/15/2024 6:42 AM EDT [facility] Comment:The request and spec imen(s) for this test have been received and transported to the [facility] at [address] [place] [address]. The [facility] will report results directly to the client. Serum 10/15/2024 6:08 AM EDT 10/15/2024 6:42 AM EDT us Cosmo Pacheco MD LAB BLOOD ORDERABLES Final Resul t Performing Organization Address [facility] de Phone Number [facility] [address] [place] [address] * LEFT HEART CATH (10/14/2024 2:09 PM EDT) 10/14/2024 11:4 7 AM EDT Narrative [facility] - 10/14/2024 9:27 PM EDT *[facility]* Cardiac Palliative Nurse [address] [place] [address] CATHETERIZATION LAB STUDY Patient: Julien Gilbert Age: [...] manner. 3. Right radial artery access. A [id number] Glidesheath - Slender - .021 sheath was [...] + + !LV pressure s/d, ed !112, dP/ae=9242gl Hg/s! + + + !Aortic pressure s/d (m)!106/58 (75) ! + + + ATTESTATION: Dr. Matta was present for the entire procedure. Dr. Jay Quan was the initial author of this report. Prepared and electronically signed by Irving Matta MD [id number] Procedure Note Irving Matta MD - 10/14/2024 *[facility]* Cardiac Palliative Nurse [address] [place] [address] CATHETERIZATION LAB STUDY Patient: Julien Gilbert Age: [...] manner. 3. Right radial artery access. A 9Ir53ml Glidesheath - Slender - .021sheath was advanced [...] complications. Contrast: Omnipaque 350 25ml (total dose). Mreduxofj071 125ml (wasted). Radiation: Fluoroscopy time: 15min. Total [...] + !LV pressure s/d, ed !, 22, dP/cd=8615hy Hg/s! + + + !Aortic pressure s/d (m)!106/58 (75) ! + + + ATTESTATION: Dr. Matta was present for the entire procedure. Dr. Jay Quan wasthe initial author of this report. Prepared and electronically signed by Irving Matta MD [id number] [place] [id number] Final Result [facility] * Transfuse Fresh Frozen Plasma Transfusion Rate: Per dept routine (10/14/2024 2:08 PM EDT) us Eleazar Nguyễn MD NURSING TREATMENT ORDER PAL - BLOOD ADMIN Final Result EXTERNAL * Transfuse Fresh Frozen Plasma Transfusion Rate: Per dept routine, 1 Units (10/14/2024 2:08 PM EDT) us Eleazar Nguyễn MD NURSING TREATMENT ORDER PAL - BLOOD ADMIN Final Result Performing Organization Address City/[facility]/ZIP Co de Phone Number EXTERNAL * Transfuse Platelets Transfusion Rate: Per dept routine (10/14/2024 12:43 PM EDT) us Eleazar Nguyễn MD NURSING TREATMENT ORDER PAL - BLOOD ADMIN Final Result Performing Organization Address City/[facility]/ZIP Co de Phone Number EXTERNAL * Transfuse Platelets Transfusion Rate: Per dept routine, 1 Units (10/14/2024 12:43 PM EDT) us Eleazar Nguyễn MD NURSING TREATMENT ORDER PAL - BLOOD ADMIN Final Result Performing Organization Address City/[facility]/ZIP Co de Phone Number EXTERNAL * Antibody Screen (10/14/2024 8:21 AM EDT) [facility] Antibody Screen Negative 10/14/2024 9:11 AM EDT [facility] Blood 10/14/2024 8:21 AM EDT 10/14/2024 8:33 AM EDT Narrative [facility] - 10/14/2024 9:26 AM EDT Testing performed by [facility] Transfusion Service us Eleazar Nguyễn MD BLOOD BANK TEST ORDERAB LES Final Result [facility] [address] [place] [address], [facility] * ABO/Rh (10/14/2024 8:21 AM EDT) ABO Grouping O 10/14/2024 8:55 AM EDT [facility] Rh Type Positive 10/14/2024 8:55 AM EDT [facility] Blood 10/14/2024 8:21 AM EDT 10/14/2024 8:33 AM EDT us Eleazar Nguyễn MD BLOOD BANK TEST ORDERAB LES Final Result Performing Organization Address [facility] Co de Phone Number [facility] [address] * (ABNORMAL) Protime-INR (10/14/2024 2:53 AM EDT) Protime 23.8(H) 12.1 - 15.1 seconds 10/14/2024 4:34 AM EDT [facility] INR 2.1(H) 0.9 - 1.1 10/14/2024 4:34 AM EDT [facility] Comment: RECOMMENDED THERAPEUTIC RANGES USING INR : Stable oral anticoagulant therapy: 2.0 - 3.0 Mechanical prosthetic heart valve: 2.5 - 3.5 Recurrent acute myocardial infarction: 2.5 - 3.5 Plasma 10/14/2024 2:53 AM EDT 10/14/2024 4:16 AM EDT us Eileen Schroeder MD, PhD LAB BLOOD ORDERABLES Final Result Performing Organization Address [facility] Co de Phone Number [facility] [address] [facility]. [address] * (ABNORMAL) Hepatic Function Panel (10/14/2024 2:53 AM EDT) Total Bilirubin 7.2(H) 0.0 - 1.5 mg/dL 10/14/2024 4:45 AM EDT [facility] Bilirubin, Direct 3.86(H) 0.00 - 0.40 mg/dL 10/14/2024 4:45 AM EDT [facility] AST 41(H) 13 - 39 U/L 10/14/2024 4:45 AM EDT [facility] ALT 22 7 - 52 U/L 10/14/2024 4:45 AM EDT [facility] Alkaline Phosphatase 119 36 - 125 U/L 10/14/2024 4:45 AM EDT [facility] Total Protein 4.6(L) 6.4 - 8.9 g/dL 10/14/2024 4:45 AM EDT [facility] Albumin 3.3(L) 3.5 - 5.7 g/dL 10/14/2024 4:45 AM EDT [facility] Bilirubin, Indirect 3.34(H) 0.00 - 1.10 mg/dL 10/14/2024 4:45 AM EDT [facility] Plasma 10/14/2024 2:53 AM EDT 10/14/2024 4:16 AM EDT Eileen Schroeder MD, PhD LAB BLOOD ORDERABLES Final Result [facility] [address] * Magnesium (10/14/2024 2:53 AM EDT) Magnesium 1.9 1.5 - 2.5 mg/dL 10/14/2024 4:45 AM EDT [facility] Plasma 10/14/2024 2:53 AM EDT 10/14/2024 4:16 AM EDT Eileen Schroeder MD, PhD LAB BLOOD ORDERABLES Final Result [facility] [address] * (ABNORMAL) Renal Function Panel w/EGFR (10/14/2024 2:53 AM EDT) Sodium 136 133 - 146 mmol/L 10/14/2024 4:45 AM EDT [facility] Potassium 3.5 3.5 - 5.3 mmol/L 10/14/2024 4:45 AM EDT [facility] Chloride 107 98 - 110 mmol/L 10/14/2024 4:45 AM EDT [facility] CO2 16(L) 21 - 33 mmol/L 10/14/2024 4:45 AM EDT [facility] Anion Gap 13 3 - 16 mmol/L 10/14/2024 4:45 AM EDT [facility] BUN 55(H) 7 - 25 mg/dL 10/14/2024 4:45 AM EDT [facility] Creatinine 3.01(H) 0.60 - 1.30 mg/dL 10/14/2024 4:45 AM EDT [facility] Glucose 95 70 - 100 mg/dL 10/14/2024 4:45 AM EDT [facility] Calcium 8.5(L) 8.6 - 10.3 mg/dL 10/14/2024 4:45 AM EDT [facility] Phosphorus 4.4 2.1 - 4.7 mg/dL 10/14/2024 4:45 AM EDT [facility] Albumin 3.3(L) 3.5 - 5.7 g/dL 10/14/2024 4:45 AM EDT [facility] Osmolality, Calculated 297 278 - 305 mOsm/kg 10/14/2024 4:45 AM EDT [facility] EGFR 26 10/14[facility]24 4[facility] Comment:As of 2021, the [...] MD, PhD LAB BLOOD ORDERABLES Final Result [facility] [address] [place] [address], [facility] * (ABNORMAL) CBC (10/14/2024 2:53 AM EDT) WBC 5.5 3.8 - 10.8 10E3/uL 10/14/2024 5:00 AM EDT [facility] RBC 2.09(L) 4.20 - 5.80 10E6/uL 10/14/2024 5:00 AM EDT [facility] Hemoglobin 7.6(L) 13.2 - 17.1 g/dL 10/14/2024 5:00 AM EDT [facility] Hematocrit 21.3(L) 38.5 - 50.0 % 10/14/2024 5:00 AM EDT [facility] MCV 101.7(H) 80.0 - 100.0 fL 10/14/2024 5:00 AM EDT [facility] MCH 36.3(H) 27.0 - 33.0 pg 10/14/2024 5:00 AM EDT [facility] MCHC 35.7 32.0 - 36.0 g/dL 10/14/2024 5:00 AM EDT [facility] RDW 17.6(H) 11.0 - 15.0 % 10/14/2024 5:00 AM EDT [facility] Platelets 35(L) 140 - 400 10E3/uL 10/14/2024 5:00 AM EDT [facility] Comment: Specimen checked for clots. None detected. Slide Reviewed for PLT Clumps. None Seen. MPV 8.5 7.5 - 11.5 fL 10/14/2024 5:00 AM EDT [facility] Whole Blood 10/14/2024 2:53 AM EDT 10/14/2024 4:17 AM EDT us Eileen Schroeder MD, PhD LAB BLOOD ORDERABLES Final Result [facility] [address] [place] [address], [facility] * Cardiac Cath Documents Scan [...] mL of GADOBUTROL 1 MMOL/ML INTRAVENOUS SYRINGE ([facility]) administered intravenously COMPARISON: CT 09/03/2024. [...] mL of GADOBUTROL 1 MMOL/ML INTRAVENOUS SYRINGE ([facility])administered intravenously COMPARISON: CT 09/03/2024. Ultrasound [...] 0.9 - 1.1 10/13/2024 6:12 AM EDT [facility] Comment: RECOMMENDED THERAPEUTIC RANGES USING INR : Stable oral anticoagulant therapy: 2.0 - 3.0 Mechanical prosthetic heart valve: 2.5 - 3.5 Recurrent acute myocardial infarction: 2.5 - 3.5 Plasma 10/13/2024 5:35 AM EDT 10/13/2024 5:52 AM EDT us Eileen Schroeder MD, PhD LAB BLOOD ORDERABLES Final Result [facility] [address] * (ABNORMAL) Hepatic Function Panel (10/13/2024 5:35 AM EDT) Total Bilirubin 6.5(H) 0.0 - 1.5 mg/dL 10/13/2024 6:30 AM EDT [facility] Bilirubin, Direct 3.53(H) 0.00 - 0.40 mg/dL 10/13/2024 6:30 AM EDT [facility] AST 42(H) 13 - 39 U/L 10/13/2024 6:30 AM EDT [facility] ALT 19 7 - 52 U/L 10/13/2024 6:30 AM EDT [facility] Alkaline Phosphatase 108 36 - 125 U/L 10/13/2024 6:30 AM EDT [facility] Total Protein 4.4(L) 6.4 - 8.9 g/dL 10/13/2024 6:30 AM EDT [facility] Albumin 3.1(L) 3.5 - 5.7 g/dL 10/13/2024 6:30 AM EDT [facility] Bilirubin, Indirect 2.97(H) 0.00 - 1.10 mg/dL 10/13/2024 6:30 AM EDT [facility] Plasma 10/13/2024 5:35 AM EDT 10/13/2024 5:52 AM EDT Eileen Schroeder MD, PhD LAB BLOOD ORDERABLES Final Result [facility] [address] [facility]. [address] * Magnesium (10/13/2024 5:35 AM EDT) Magnesium 2.0 1.5 - 2.5 mg/dL 10/13/2024 6:30 AM EDT [facility] Plasma 10/13/2024 5:35 AM EDT 10/13/2024 5:52 AM EDT Eileen Schroeder MD, PhD LAB BLOOD ORDERABLES Final Result [facility] [address] [place] [id number], [facility] * (ABNORMAL) Renal Function Panel w/EGFR (10/13/2024 5:35 AM EDT) Sodium 134 133 - 146 mmol/L 10/13/2024 6:30 AM EDT [facility] Potassium 3.7 3.5 - 5.3 mmol/L 10/13/2024 6:30 AM EDT [facility] Chloride 109 98 - 110 mmol/L 10/13/2024 6:30 AM EDT [facility] CO2 14(L) 21 - 33 mmol/L 10/13/2024 6:30 AM EDT [facility] Anion Gap 11 3 - 16 mmol/L 10/13/2024 6:30 AM EDT [facility] BUN 54(H) 7 - 25 mg/dL 10/13/2024 6:30 AM EDT [facility] Creatinine 2.99(H) 0.60 - 1.30 mg/dL 10/13/2024 6:30 AM EDT [facility] Glucose 116(H) 70 - 100 mg/dL 10/13/2024 6:30 AM EDT [facility] Calcium 8.3(L) 8.6 - 10.3 mg/dL 10/13/2024 6:30 AM EDT [facility] Phosphorus 4.5 2.1 - 4.7 mg/dL 10/13/2024 6:30 AM EDT [facility] Albumin 3.1(L) 3.5 - 5.7 g/dL 10/13/2024 6:30 AM EDT [facility] Osmolality, Calculated 294 278 - 305 mOsm/kg 10/13/2024 6:30 AM EDT [facility] EGFR 26 10/13/2024 6:30 AM EDT [facility] Comment:As of 2021, the estimated [...] MD, PhD LAB BLOOD ORDERABLES Final Result [facility] [address] [place] [address], [facility] * (ABNORMAL) CBC (10/13/2024 5:35 AM EDT) WBC 4.7 3.8 - 10.8 10E3/uL 10/13/2024 6:22 AM EDT [facility] RBC 2.06(L) 4.20 - 5.80 10E6/uL 10/13/2024 6:22 AM EDT [facility] Hemoglobin 7.4(L) 13.2 - 17.1 g/dL 10/13/2024 6:22 AM EDT [facility] Hematocrit 21.7(L) 38.5 - 50.0 % 10/13/2024 6:22 AM EDT [facility] MCV 105.4(H) 80.0 - 100.0 fL 10/13/2024 6:22 AM EDT [facility] MCH 35.9(H) 27.0 - 33.0 pg 10/13/2024 6:22 AM EDT [facility] MCHC 34.0 32.0 - 36.0 g/dL 10/13/2024 6:22 AM EDT [facility] RDW 18.5(H) 11.0 - 15.0 % 10/13/2024 6:22 AM EDT [facility] Platelets 35(L) 140 - 400 10E3/uL 10/13/2024 6:22 AM EDT [facility] Comment: CNV Specimen checked for clots. None detected. MPV 8.4 7.5 - 11.5 fL 10/13/2024 6:22 AM EDT [facility] Whole Blood 10/13/2024 5:35 AM EDT 10/13/2024 5:53 AM EDT us Eileen Schroeder MD, PhD LAB BLOOD ORDERABLES Final Result Performing Organization Address City/[facility] Co de Phone Number [facility] [address] [facility]. [address] * (ABNORMAL) Ammonia (10/13/2024 5:35 AM EDT) Ammonia 203(HH) 27 - 90 ug/dL 10/13/2024 7:16 AM EDT [facility] Comment: HEMOLYSIS EVIDENT. RESULTS MAY BE INFLUENCED. Critical Result [id number] Called to and read back by: KEY MELO RN at: 10/13/2024 07:15:55 by:NISREEN Plasma 10/13/2024 5:35 AM EDT 10/13/2024 6:19 AM EDT us Ellis Mays DO LAB BLOOD ORDERABLES Final Resul t Performing Organization Address [facility] Co de Phone Number [facility] [address] [facility]. [address] * CARISA Rhythm Strip - Scan (10/12/2024 10:30 PM EDT) us Scanning Uchhim SCAN DOCS - NO RESULTS Final Res ult * (ABNORMAL) Protime-INR (10/12/2024 5:44 AM EDT) Protime 25.7(H) 12.1 - 15.1 seconds 10/12/2024 6:12 AM EDT [facility] INR 2.3(H) 0.9 - 1.1 10/12/2024 6:12 AM EDT [facility] Comment: RECOMMENDED THERAPEUTIC RANGES USING INR : Stable oral anticoagulant therapy: 2.0 - 3.0 Mechanical prosthetic heart valve: 2.5 - 3.5 Recurrent acute myocardial infarction: 2.5 - 3.5 Plasma 10/12/2024 5:44 AM EDT 10/12/2024 5:58 AM EDT Eileen Schroeder MD, PhD LAB BLOOD ORDERABLES Final Result Performing Organization Address [facility] Co de Phone Number [facility] [address] * (ABNORMAL) Hepatic Function Panel (10/12/2024 5:44 AM EDT) Total Bilirubin 6.5(H) 0.0 - 1.5 mg/dL 10/12/2024 6:29 AM EDT [facility] Bilirubin, Direct 3.64(H) 0.00 - 0.40 mg/dL 10/12/2024 6:29 AM EDT [facility] AST 40(H) 13 - 39 U/L 10/12/2024 6:29 AM EDT [facility] ALT 19 7 - 52 U/L 10/12/2024 6:29 AM EDT [facility] Alkaline Phosphatase 99 36 - 125 U/L 10/12/2024 6:29 AM EDT [facility] Total Protein 4.2(L) 6.4 - 8.9 g/dL 10/12/2024 6:29 AM EDT [facility] Albumin 3.1(L) 3.5 - 5.7 g/dL 10/12/2024 6:29 AM EDT [facility] Bilirubin, Indirect 2.86(H) 0.00 - 1.10 mg/dL 10/12/2024 6:29 AM EDT [facility] Plasma 10/12/2024 5:44 AM EDT 10/12/2024 5:58 AM EDT Eileen Schroeder MD, PhD LAB BLOOD ORDERABLES Final Result Performing Organization Address City/[facility]/ZIP Co de Phone Number [facility] [address] [facility]. [address] * Magnesium (10/12/2024 5:44 AM EDT) Magnesium 1.9 1.5 - 2.5 mg/dL 10/12/2024 6:29 AM EDT [facility] Plasma 10/12/2024 5:44 AM EDT 10/12/2024 5:58 AM EDT us Eileen Schroeder MD, PhD LAB BLOOD ORDERABLES Final Result [facility] [address] [facility]. [address] * (ABNORMAL) Renal Function Panel w/EGFR (10/12/2024 5:44 AM EDT) Sodium 135 133 - 146 mmol/L 10/12/2024 6:29 AM EDT [facility] Potassium 3.7 3.5 - 5.3 mmol/L 10/12/2024 6:29 AM EDT [facility] Chloride 109 98 - 110 mmol/L 10/12/2024 6:29 AM EDT [facility] CO2 17(L) 21 - 33 mmol/L 10/12/2024 6:29 AM EDT [facility] Anion Gap 9 3 - 16 mmol/L 10/12/2024 6:29 AM EDT [facility] BUN 52(H) 7 - 25 mg/dL 10/12/2024 6:29 AM EDT [facility] Creatinine 2.94(H) 0.60 - 1.30 mg/dL 10/12/2024 6:29 AM EDT [facility] Glucose 121(H) 70 - 100 mg/dL 10/12/2024 6:29 AM EDT [facility] Calcium 8.5(L) 8.6 - 10.3 mg/dL 10/12/2024 6:29 AM EDT [facility] Phosphorus 4.6 2.1 - 4.7 mg/dL 10/12/2024 6:29 AM EDT [facility] Albumin 3.1(L) 3.5 - 5.7 g/dL 10/12/2024 6:29 AM EDT [facility] Osmolality, Calculated 295 278 - 305 mOsm/kg 10/12/2024 6:29 AM EDT [facility] EGFR 27 10/12/2024 6:29 AM EDT [facility] Comment:As of 2021, the estimated [...] MD, PhD LAB BLOOD ORDERABLES Final Result [facility] [address] [id number], [facility] * (ABNORMAL) CBC (10/12/2024 5:44 AM EDT) WBC 3.3(L) 3.8 - 10.8 10E3/uL 10/12/2024 7:06 AM EDT [facility] RBC 1.95(L) 4.20 - 5.80 10E6/uL 10/12/2024 7:06 AM EDT [facility] Hemoglobin 7.2(L) 13.2 - 17.1 g/dL 10/12/2024 7:06 AM EDT [facility] Hematocrit 19.7(L) 38.5 - 50.0 % 10/12/2024 7:06 AM EDT [facility] MCV 101.2(H) 80.0 - 100.0 fL 10/12/2024 7:06 AM EDT [facility] MCH 37.0(H) 27.0 - 33.0 pg 10/12/2024 7:06 AM EDT [facility] MCHC 36.5(H) 32.0 - 36.0 g/dL 10/12/2024 7:06 AM EDT [facility] RDW 17.6(H) 11.0 - 15.0 % 10/12/2024 7:06 AM EDT [facility] Platelets 30(L) 140 - 400 10E3/uL 10/12/2024 7:06 AM EDT [facility] Comment: Specimen checked for clots. None detected. Slide Reviewed for PLT Clumps. None Seen. Platelet Estimate Decreased 10/12/2024 7:06 AM EDT [facility] MPV 8.3 7.5 - 11.5 fL 10/12/2024 7:06 AM EDT [facility] Whole Blood 10/12/2024 5:44 AM EDT 10/12/2024 5:58 AM EDT Narrative [facility] - 10/12/2024 7:06 AM EDT Peripheral blood smear was scanned per review criteria approved by the laboratory medical dir. us Eileen Schroeder MD, PhD LAB BLOOD ORDERABLES Final Result [facility] [address] * CARISA Rhythm Strip - Scan (10/11/2024 10:04 PM EDT) us Scanning [employer] SCAN DOCS - NO RESULTS Final Res ult * (ABNORMAL) Protime-INR (10/11/2024 3:02 AM EDT) Protime 26.8(H) 12.1 - 15.1 seconds 10/11/2024 3:30 AM EDT [facility] INR 2.4(H) 0.9 - 1.1 10/11/2024 3:30 AM EDT [facility] Comment: RECOMMENDED THERAPEUTIC RANGES USING INR : Stable oral anticoagulant therapy: 2.0 - 3.0 Mechanical prosthetic heart valve: 2.5 - 3.5 Recurrent acute myocardial infarction: 2.5 - 3.5 Plasma 10/11/2024 3:02 AM EDT 10/11/2024 3:08 AM EDT Eileen Schroeder MD, PhD LAB BLOOD ORDERABLES Final Result Performing Organization Address City/[facility]/ZIP Co de Phone Number [facility] [address] [facility]. [address] [address] * (ABNORMAL) Hepatic Function Panel (10/11/2024 3:02 AM EDT) Total Bilirubin 7.3(H) 0.0 - 1.5 mg/dL 10/11/2024 3:38 AM EDT [facility] Bilirubin, Direct 3.85(H) 0.00 - 0.40 mg/dL 10/11/2024 3:38 AM EDT [facility] AST 39 13 - 39 U/L 10/11/2024 3:38 AM EDT [facility] ALT 20 7 - 52 U/L 10/11/2024 3:38 AM EDT [facility] Alkaline Phosphatase 88 36 - 125 U/L 10/11/2024 3:38 AM EDT [facility] Total Protein 4.5(L) 6.4 - 8.9 g/dL 10/11/2024 3:38 AM EDT [facility] Albumin 3.3(L) 3.5 - 5.7 g/dL 10/11/2024 3:38 AM EDT [facility] Bilirubin, Indirect 3.45(H) 0.00 - 1.10 mg/dL 10/11/2024 3:38 AM EDT [facility] Plasma 10/11/2024 3:02 AM EDT 10/11/2024 3:08 AM EDT Eileen Schroeder MD, PhD LAB BLOOD ORDERABLES Final Result Performing Organization Address City/[facility]/ZIP Co de Phone Number [facility] [address] [facility]. [address] * Magnesium (10/11/2024 3:02 AM EDT) Magnesium 2.0 1.5 - 2.5 mg/dL 10/11/2024 3:38 AM EDT [facility] Plasma 10/11/2024 3:02 AM EDT 10/11/2024 3:08 AM EDT us Eileen Schroeder MD, PhD LAB BLOOD ORDERABLES Final Result [facility] [address] [place] [id number] * (ABNORMAL) Renal Function Panel w/EGFR (10/11/2024 3:02 AM EDT) Sodium 134 133 - 146 mmol/L 10/11/2024 3:38 AM EDT [facility] Potassium 3.6 3.5 - 5.3 mmol/L 10/11/2024 3:38 AM EDT [facility] Chloride 108 98 - 110 mmol/L 10/11/2024 3:38 AM EDT [facility] CO2 16(L) 21 - 33 mmol/L 10/11/2024 3:38 AM EDT [facility] Anion Gap 10 3 - 16 mmol/L 10/11/2024 3:38 AM EDT [facility] BUN 49(H) 7 - 25 mg/dL 10/11/2024 3:38 AM EDT [facility] Creatinine 2.77(H) 0.60 - 1.30 mg/dL 10/11/2024 3:38 AM EDT [facility] Glucose 112(H) 70 - 100 mg/dL 10/11/2024 3:38 AM EDT [facility] Calcium 8.9 8.6 - 10.3 mg/dL 10/11/2024 3:38 AM EDT [facility] Phosphorus 3.5 2.1 - 4.7 mg/dL 10/11/2024 3:38 AM EDT [facility] Albumin 3.3(L) 3.5 - 5.7 g/dL 10/11/2024 3:38 AM EDT [facility] Osmolality, Calculated 292 278 - 305 mOsm/kg 10/11/2024 3:38 AM EDT [facility] EGFR 29 10/11/2024 3:38 AM EDT [facility] Comment:As of 2021, the estimated [...] MD, PhD LAB BLOOD ORDERABLES Final Result [facility] [address] [place] [address], [facility] * (ABNORMAL) CBC (10/11/2024 3:02 AM EDT) WBC 4.0 3.8 - 10.8 10E3/uL 10/11/2024 3:55 AM EDT [facility] RBC 2.11(L) 4.20 - 5.80 10E6/uL 10/11/2024 3:55 AM EDT [facility] Hemoglobin 7.7(L) 13.2 - 17.1 g/dL 10/11/2024 3:55 AM EDT [facility] Hematocrit 21.2(L) 38.5 - 50.0 % 10/11/2024 3:55 AM EDT [facility] MCV 100.5(H) 80.0 - 100.0 fL 10/11/2024 3:55 AM EDT [facility] MCH 36.4(H) 27.0 - 33.0 pg 10/11/2024 3:55 AM EDT [facility] MCHC 36.2(H) 32.0 - 36.0 g/dL 10/11/2024 3:55 AM EDT [facility] RDW 17.9(H) 11.0 - 15.0 % 10/11/2024 3:55 AM EDT [facility] Platelets 32(L) 140 - 400 10E3/uL 10/11/2024 3:55 AM EDT [facility] Comment: Specimen checked for clots. None detected. Slide Reviewed for PLT Clumps. None Seen. Platelet Estimate Decreased 10/11/2024 3:55 AM EDT [facility] MPV 8.1 7.5 - 11.5 fL 10/11/2024 3:55 AM EDT [facility] Whole Blood 10/11/2024 3:02 AM EDT 10/11/2024 3:08 AM EDT Narrative [facility] - 10/11/2024 3:55 AM EDT Peripheral blood smear was scanned per review criteria approved by the laboratory medical dir. us Eileen Schroeder MD, PhD LAB BLOOD ORDERABLES Final Result [facility] [address] * Vancomycin, random (10/11/2024 3:02 AM EDT) Vancomycin Random 13.4 ug/mL 10/11/2024 3:37 AM EDT [facility] Comment:Reference range not established for this test. Plasma 10/11/2024 3:02 AM EDT 10/11/2024 3:08 AM EDT us Jodi FreireD LAB BLOOD ORDERABLES Final Result [facility] [address] [facility]. [address] * IR Paracentesis incl imaging guide [...] diagnostic and therapeutic paracentesis. Bakari Wahl CNP, Forms Analyst Procedure and Findings: The procedure was performed [...] Using ultrasound guidance, a 10 cm, 5-F [employer] Centesis catheter was placed into the right [...] for diagnostic andtherapeutic paracentesis. Bakari Wahl CNP, Forms Analyst Procedure and Findings: The procedure was performed [...] Using ultrasound guidance, a 10 cm, 5-F [employer] Centesis catheter was placedinto the right lower [...] Colorless, Pale Yellow 10/10/2024 5:29 PM EDT [facility] Clarity, Fluid Clear 10/10/2024 5:29 PM EDT [facility] Neutrophil %, Fluid 9 % 10/10/2024 5:29 PM EDT [facility] Lymphocytes %, Fluid 13 % 10/10/2024 5:29 PM EDT [facility] Mesothelial %, Fluid 6 % 10/10/2024 5:29 PM EDT [facility] Macrophage %, Fluid 72 % 10/10/2024 5:29 PM EDT [facility] RBC, Fluid 2,662 /uL 10/10/2024 4:41 PM EDT [facility] Total Nucleated Cells, Fluid 89 /uL 10/10/2024 4:41 PM EDT [facility] Comment:Total Nucleated Cell s represent WBCs and other nucleated cells in the fluid such as lining cells. Ascitic Fluid ABDOMEN / Unknown 1:51 PM EDT 10/10/2024 3:56 PM EDT Gerri Peterson MD BODY FLUIDS AND STOOLS ORDERABL ES Final Result Performing Organization Address City/[facility]/ZIP Co de Phone Number [facility] [address] * Body Fluid Culture plus Stain (10/10/2024 1:51 PM EDT) Gram Stain Result Cytospin Results: [facility] Gram Stain Result Polymorphonuclear Leukocytes Seen; [facility] Gram Stain Result No Organisms Seen; [facility] Culture Result No Growth After 5 Days [facility] Fluid ABDOMEN / Unknown 10/10/2024 1:51 PM EDT 10/10/2024 3:56 PM EDT Gerri Peterson MD MICROBIOLOGY - GENERAL ORDERABL ES Final Result [facility] [address] * UPPER GI ENDOSCOPY (10/10/2024 11:48 AM EDT) 10/10/2024 11:4 8 AM EDT Narrative [facility] - 10/10/2024 12:34 PM EDT [id number] Procedure Date: 10/10/2024 11:48 AM Patient Name: Julien Gilbert Date of : 1985 Admit Type: Inpatient Age: 39 Gender: Male Note Status: Finalized Attending MD: Lino Soto MD, [id number] Procedure: Upper GI endoscopy Indications: Gastroesopahgeal variceal [...] verified by the physician, the nurse, the assistant women's basketball coach and the satellite tv technician installer in the pre-procedure area in the procedure [...] to hypotension Procedure Code(s): --- Professional --- 34146, GC, Esophagogastroduodenoscopy, flexible, transoral; diagnostic, including collection of specimen(s) by brushing or washing, when performed (separate procedure) Diagnosis Code(s): --- Professional --- I85.00, Esophageal varices without bleeding K76.6, Portal hypertension K31.89, Other diseases of stomach and duodenum CPT copyright 2022 [employer]. All rights reserved. The codes documented in this report are preliminary and upon deputy sheriff custody review may be revised to meet current [...] In: 12:10:16 PM Scope Out: 12:17:[address] [place] [address], [facility] us Provider Not In System PROCEDURE/MINOR SURGICAL ORDERABLES Final Result Performing Organization Address [facility] Co de Phone Number [facility] * (ABNORMAL) Protime-INR (10/10/2024 5:23 AM EDT) Protime 23.9(H) 12.1 - 15.1 seconds 10/10/2024 6:11 AM EDT [facility] INR 2.1(H) 0.9 - 1.1 10/10/2024 6:11 AM EDT [facility] Comment: RECOMMENDED THERAPEUTIC RANGES USING INR : Stable oral anticoagulant therapy: 2.0 - 3.0 Mechanical prosthetic heart valve: 2.5 - 3.5 Recurrent acute myocardial infarction: 2.5 - 3.5 Plasma 10/10/2024 5:23 AM EDT 10/10/2024 5:50 AM EDT us Eileen Schroeder MD, PhD LAB BLOOD ORDERABLES Final Result Performing Organization Address City/[facility] Co de Phone Number [facility] [address] [place] [address] * (ABNORMAL) Hepatic Function Panel (10/10/2024 5:23 AM EDT) Total Bilirubin 8.6(H) 0.0 - 1.5 mg/dL 10/10/2024 6:21 AM EDT [facility] Bilirubin, Direct 4.65(H) 0.00 - 0.40 mg/dL 10/10/2024 6:21 AM EDT [facility] AST 40(H) 13 - 39 U/L 10/10/2024 6:21 AM EDT [facility] ALT 22 7 - 52 U/L 10/10/2024 6:21 AM EDT [facility] Alkaline Phosphatase 118 36 - 125 U/L 10/10/2024 6:21 AM EDT [facility] Total Protein 4.6(L) 6.4 - 8.9 g/dL 10/10/2024 6:21 AM EDT [facility] Albumin 3.3(L) 3.5 - 5.7 g/dL 10/10/2024 6:21 AM EDT [facility] Bilirubin, Indirect 3.95(H) 0.00 - 1.10 mg/dL 10/10/2024 6:21 AM EDT [facility] Plasma 10/10/2024 5:23 AM EDT 10/10/2024 5:50 AM EDT us Eileen Schroeder MD, PhD LAB BLOOD ORDERABLES Final Result Performing Organization Address City/[facility]/ZIP Co de Phone Number [facility] [address] * Magnesium (10/10/2024 5:23 AM EDT) Magnesium 1.9 1.5 - 2.5 mg/dL 10/10/2024 6:21 AM EDT [facility] Plasma 10/10/2024 5:23 AM EDT 10/10/2024 5:50 AM EDT Eileen Schroeder MD, PhD LAB BLOOD ORDERABLES Final Result Performing Organization Address City/[facility]/ZIP Co de Phone Number [facility] [address] * (ABNORMAL) Renal Function Panel w/EGFR (10/10/2024 5:23 AM EDT) Sodium 135 133 - 146 mmol/L 10/10/2024 6:21 AM EDT [facility] Potassium 3.6 3.5 - 5.3 mmol/L 10/10/2024 6:21 AM EDT [facility] Chloride 108 98 - 110 mmol/L 10/10/2024 6:21 AM EDT [facility] CO2 17(L) 21 - 33 mmol/L 10/10/2024 6:21 AM EDT [facility] Anion Gap 10 3 - 16 mmol/L 10/10/2024 6:21 AM EDT [facility] BUN 53(H) 7 - 25 mg/dL 10/10/2024 6:21 AM EDT [facility] Creatinine 2.85(H) 0.60 - 1.30 mg/dL 10/10/2024 6:21 AM EDT [facility] Glucose 113(H) 70 - 100 mg/dL 10/10/2024 6:21 AM EDT [facility] Calcium 9.0 8.6 - 10.3 mg/dL 10/10/2024 6:21 AM EDT [facility] Phosphorus 3.3 2.1 - 4.7 mg/dL 10/10/2024 6:21 AM EDT [facility] Albumin 3.3(L) 3.5 - 5.7 g/dL 10/10/2024 6:21 AM EDT [facility] Osmolality, Calculated 295 278 - 305 mOsm/kg 10/10/2024 6:21 AM EDT [facility] EGFR 28 10/10/2024 6:21 AM EDT [facility] Comment:As of 2021, the estimated [...] MD, PhD LAB BLOOD ORDERABLES Final Result [facility] [address] [place] [address], [facility] * (ABNORMAL) CBC (10/10/2024 5:23 AM EDT) WBC 5.1 3.8 - 10.8 10E3/uL 10/10/2024 6:14 AM EDT [facility] RBC 2.04(L) 4.20 - 5.80 10E6/uL 10/10/2024 6:14 AM EDT [facility] Hemoglobin 7.3(L) 13.2 - 17.1 g/dL 10/10/2024 6:14 AM EDT [facility] Hematocrit 20.6(L) 38.5 - 50.0 % 10/10/2024 6:14 AM EDT [facility] MCV 101.2(H) 80.0 - 100.0 fL 10/10/2024 6:14 AM EDT [facility] MCH 36.0(H) 27.0 - 33.0 pg 10/10/2024 6:14 AM EDT [facility] MCHC 35.5 32.0 - 36.0 g/dL 10/10/2024 6:14 AM EDT [facility] RDW 17.6(H) 11.0 - 15.0 % 10/10/2024 6:14 AM EDT [facility] Platelets 39(L) 140 - 400 10E3/uL 10/10/2024 6:14 AM EDT [facility] Comment: CNV Specimen checked for clots. None detected. MPV 9.8 7.5 - 11.5 fL 10/10/2024 6:14 AM EDT [facility] Whole Blood 10/10/2024 5:23 AM EDT 10/10/2024 5:51 AM EDT us Eileen Schroeder MD, PhD LAB BLOOD ORDERABLES Final Result Performing Organization Address City/[facility]/ZIP Co de Phone Number [facility] [address] [place] [address] * Vancomycin, random (10/10/2024 5:23 AM EDT) Vancomycin Random 16.4 ug/mL 10/10/2024 6:22 AM EDT [facility] Comment:Reference range not established for this test. Plasma 10/10/2024 5:23 AM EDT 10/10/2024 5:51 AM EDT us Jodi FreireD LAB BLOOD ORDERABLES Final Result Performing Organization Address [facility] Co de Phone Number [facility] [address] [place] [address] * ECHO STRESS W/ CONTRAST (10/09/2024 4:37 PM EDT) Anatomical Region Laterality Modality Chest Ultrasound 10/09/2024 2:40 PM EDT Narrative 10/09/2024 6:45 PM EDT * [facility]* [address] [place] [address] Stress Echocardiogram Patient: Julien Gilbert Room: 8142 Height: 76in MR Number: [id number] : 1985 Weight: 262lb Account: [id number] Gender: M BP: 125 / 77 Study Date: 10/09/2024 Age: 39 BSA: 2.48m^2 Referring physician: Gerri Peterson Interpreting physician: Tonya Henriquez MD FELLOW Lisa Jha MD PERFORMING Tonya Henriquez MD BANKRUPTCY ASSISTANT Soco Gan ORDERING Gerri Peterson REFERRING Gerri [...] was augmented by the addition of hand lead programmer analyst and leg lifts. The infusion was terminated [...] at baseline or with provocation, shows no qipmw-qp-dokc atrial level shunt. - Pulmonary arteries: Systolic [...] at baseline or with provocation, shows no jljdj-xd-ptnr atrial level shunt. Pulmonary artery: - Systolic [...] at baseline or with provocation, shows no mgrte-ao-olxn atrial level shunt. Pericardium: - There is [...] peak heart rate and blood pressure was 44621vu Hg/min. Stress testing did not produce any [...] Reviewed and confirmed by Tonya Henriquez MD [id number] Procedure Note Tonya Henriquez MD - 10/09/2024 * [facility]* [address] [place] [address] Stress Echocardiogram Patient: Julien Gilbert Room: 8142 Height: 76in MR Number: [id number] : 1985 Weight: 262lb Account: [id number] Gender: M BP: 125 / 77 Study Date: 10/09/2024 Age: 39 BSA: 2.48m^2 Referring physician: Gerri Peterson Interpreting physician: Tonya Henriquez MD FELLOW Lisa Jha MD PERFORMING Tonya Henriquez MD BANKRUPTCY ASSISTANT Soco Gan ORDERING Gerri Peterson REFERRING Gerri Peterson ATTENDING Fouzia Rene ADMITTING Angie Blanchard Procedure:STRESS ECHO - PHARMACOLOGIC Order: Indications: Pre-Operative Clearance (Z01.818). PMH: EtOH Use Disorder. Risk factors: Hypertension. Dyslipidemia. Study data: Height: 76in. 193cm. Weight: 262lb. 118.8kg. The previousstudy was not available, so comparison was made to the report of 07/15/2024. Study status: Routine. [facility]. Intravenous [...] was augmented by the addition of hand lead programmer analyst and leg lifts. The infusion was terminated [...] at baseline or with provocation, shows no suwjn-pg-ixqk atrial level shunt. - Pulmonary arteries: Systolic [...] study at baseline or with provocation, showsno jtbta-cr-azom atrial level shunt. Pulmonary artery: - Systolic [...] at baseline or with provocation, shows no mifum-ri-uihg atrial level shunt. Pericardium: - There is [...] heart rate). The maximal predicted heart rate [id number]. The target heart rate was 152bpm. The target heart rate was achieved.The heart rate response to stress is normal. There is a normal resting blood pressure with an appropriate response to stress. The rate-pressureproduct for the peak heart rate and blood pressure was 53431qk Hg/min. Stress testing did not produce any [...] interpretation ofthe resident. Reviewed and confirmed by Tnoya Henriquez MD [id number] Gerri Peterson MD CV ECHO ORDERABLES Final Result * (ABNORMAL) Renal Function Panel w/EGFR, STAT (10/09/2024 1:05 PM EDT) Sodium 134 133 - 146 mmol/L 10/09/2024 2:10 PM EDT [facility] Potassium 3.7 3.5 - 5.3 mmol/L 10/09/2024 2:10 PM EDT [facility] Chloride 105 98 - 110 mmol/L 10/09/2024 2:10 PM EDT [facility]ALTH LAB CO2 17(L) 21 - 33 mmol/L 10/09/2024 2:10 PM EDT [facility] Anion Gap 12 3 - 16 mmol/L 10/09/2024 2:10 PM EDT [facility] BUN 53(H) 7 - 25 mg/dL 10/09/2024 2:10 PM EDT [facility] Creatinine 2.89(H) 0.60 - 1.30 mg/dL 10/09/2024 2:10 PM EDT [facility] Glucose 108(H) 70 - 100 mg/dL 10/09/2024 2:10 PM EDT [facility] Calcium 9.3 8.6 - 10.3 mg/dL 10/09/2024 2:10 PM EDT [facility] Phosphorus 3.4 2.1 - 4.7 mg/dL 10/09/2024 2:10 PM EDT [facility] Albumin 3.6 3.5 - 5.7 g/dL 10/09/2024 2:10 PM EDT [facility] Osmolality, Calculated 293 278 - 305 mOsm/kg 10/09/2024 2:10 PM EDT [facility] EGFR 27 10/09/2024 2:10 PM EDT [facility] Comment:As of 2021, the estimated [...] MD, PhD LAB BLOOD ORDERABLES Final Result [facility] [address] * (ABNORMAL) Renal Function Panel w/EGFR, STAT (10/09/2024 8:14 AM EDT) Sodium 134 133 - 146 mmol/L 10/09/2024 8:47 AM EDT [facility] Potassium 3.4(L) 3.5 - 5.3 mmol/L 10/09/2024 8:47 AM EDT [facility] Chloride 107 98 - 110 mmol/L 10/09/2024 8:47 AM EDT [facility] CO2 17(L) 21 - 33 mmol/L 10/09/2024 8:47 AM EDT [facility] Anion Gap 10 3 - 16 mmol/L 10/09/2024 8:47 AM T [facility] BUN 54(H) 7 - 25 mg/dL 10/09/2024 8:47 AM EDT [facility] Creatinine 3.04(H) 0.60 - 1.30 mg/dL 10/09/2024 8:47 AM EDT [facility] Glucose 124(H) 70 - 100 mg/dL 10/09/2024 8:47 AM EDT [facility] Calcium 9.0 8.6 - 10.3 mg/dL 10/09/2024 8:47 AM EDT [facility] Phosphorus 3.5 2.1 - 4.7 mg/dL 10/09/2024 8:47 AM EDT [facility] Albumin 3.4(L) 3.5 - 5.7 g/dL 10/09/2024 8:47 AM T [facility] Osmolality, Calculated 294 278 - 305 mOsm/kg 10/09/2024 8:47 AM EDT [facility] EGFR 26 10/09/2024 8:47 AM EDT [facility] Comment:As of 2021, the estimated [...] MD LAB BLOOD ORDERABLES Final Resu lt [facility] [address] * Prepare RBC, leukoreduced, 1 Units (10/09/2024 6:16 AM EDT) Product Code B7586L80 [facility] Unit Number [id number] [facility] Dispense Status Presumed Transfused_PT [facility] Blood Expiration Date [id number] [facility] Coding System [id number] [facility] Blood Bank Product Eileen Schroeder MD, PhD BLOOD BANK PRODUCT OR DERABLES Final Result Performing Organization Address City/[facility]/ZIP Co de Phone Number [facility] * (ABNORMAL) Protime-INR (10/09/2024 4:59 AM EDT) Protime 26.5(H) 12.1 - 15.1 seconds 10/09/2024 6:30 AM EDT [facility] INR 2.4(H) 0.9 - 1.1 10/09/2024 6:30 AM EDT [facility] Comment: RECOMMENDED THERAPEUTIC RANGES USING INR : Stable oral anticoagulant therapy: 2.0 - 3.0 Mechanical prosthetic heart valve: 2.5 - 3.5 Recurrent acute myocardial infarction: 2.5 - 3.5 Plasma 10/09/2024 4:59 AM EDT 10/09/2024 5:55 AM EDT Eileen Schroeder MD, PhD LAB BLOOD ORDERABLES Final Result Performing Organization Address City/[facility]/ZIP Co de Phone Number [facility] [address] [facility]. [address] * (ABNORMAL) Hepatic Function Panel (10/09/2024 4:59 AM EDT) Total Bilirubin 9.0(H) 0.0 - 1.5 mg/dL 10/09/2024 6:42 AM EDT [facility] Bilirubin, Direct 4.60(H) 0.00 - 0.40 mg/dL 10/09/2024 6:42 AM EDT [facility] AST 38 13 - 39 U/L 10/09/2024 6:42 AM EDT [facility] ALT 18 7 - 52 U/L 10/09/2024 6:42 AM EDT [facility] Alkaline Phosphatase 122 36 - 125 U/L 10/09/2024 6:42 AM EDT [facility] Total Protein 4.8(L) 6.4 - 8.9 g/dL 10/09/2024 6:42 AM EDT [facility] Albumin 3.4(L) 3.5 - 5.7 g/dL 10/09/2024 6:42 AM EDT [facility] Bilirubin, Indirect 4.40(H) 0.00 - 1.10 mg/dL 10/09/2024 6:42 AM EDT [facility] Plasma 10/09/2024 4:59 AM EDT 10/09/2024 5:57 AM EDT Eileen Schroeder MD, PhD LAB BLOOD ORDERABLES Final Result [facility] [address] [facility]. [address] * Magnesium (10/09/2024 4:59 AM EDT) Magnesium 1.8 1.5 - 2.5 mg/dL 10/09/2024 6:42 AM EDT [facility] Plasma 10/09/2024 4:59 AM EDT 10/09/2024 5:57 AM EDT us Eileen Schroeder MD, PhD LAB BLOOD ORDERABLES Final Result [facility] [address] [place] [address], [facility] * (ABNORMAL) Renal Function Panel w/EGFR (10/09/2024 4:59 AM EDT) Sodium 134 133 - 146 mmol/L 10/09/2024 6:42 AM EDT [facility] Potassium 3.3(L) 3.5 - 5.3 mmol/L 10/09/2024 6:42 AM EDT [facility] Chloride 107 98 - 110 mmol/L 10/09/2024 6:42 AM EDT [facility] CO2 16(L) 21 - 33 mmol/L 10/09/2024 6:42 AM EDT [facility] Anion Gap 11 3 - 16 mmol/L 10/09/2024 6:42 AM EDT [facility] BUN 56(H) 7 - 25 mg/dL 10/09/2024 6:42 AM EDT [facility] Creatinine 2.98(H) 0.60 - 1.30 mg/dL 10/09/2024 6:42 AM EDT [facility] Glucose 112(H) 70 - 100 mg/dL 10/09/2024 6:42 AM EDT [facility] Calcium 9.0 8.6 - 10.3 mg/dL 10/09/2024 6:42 AM EDT [facility] Phosphorus 3.5 2.1 - 4.7 mg/dL 10/09/2024 6:42 AM EDT [facility] Albumin 3.4(L) 3.5 - 5.7 g/dL 10/09/2024 6:42 AM EDT [facility] Osmolality, Calculated 294 278 - 305 mOsm/kg 10/09/2024 6:42 AM EDT [facility] EGFR 26 10/09/2024 6:42 AM EDT [facility] Comment:As of 2021, the estimated [...] MD, PhD LAB BLOOD ORDERABLES Final Result [facility] [address] [place] [address], [facility] * (ABNORMAL) CBC (10/09/2024 4:59 AM EDT) WBC 4.6 3.8 - 10.8 10E3/uL 10/09/2024 6:21 AM EDT [facility] RBC 2.17(L) 4.20 - 5.80 10E6/uL 10/09/2024 6:21 AM EDT [facility] Hemoglobin 8.0(L) 13.2 - 17.1 g/dL 10/09/2024 6:21 AM EDT [facility] Hematocrit 21.8(L) 38.5 - 50.0 % 10/09/2024 6:21 AM EDT [facility] MCV 100.5(H) 80.0 - 100.0 fL 10/09/2024 6:21 AM EDT [facility] MCH 36.7(H) 27.0 - 33.0 pg 10/09/2024 6:21 AM EDT [facility] MCHC 36.5(H) 32.0 - 36.0 g/dL 10/09/2024 6:21 AM EDT [facility] RDW 18.1(H) 11.0 - 15.0 % 10/09/2024 6:21 AM EDT [facility] Platelets 36(L) 140 - 400 10E3/uL 10/09/2024 6:21 AM EDT [facility] Comment:Specimen checked for clots. None detected. MPV 8.3 7.5 - 11.5 fL 10/09/2024 6:21 AM EDT [facility] Whole Blood 10/09/2024 4:59 AM EDT 10/09/2024 5:56 AM EDT us Eileen Schroeder MD, PhD LAB BLOOD ORDERABLES Final Result Performing Organization Address [facility] Co de Phone Number [facility] [address] * Renal Tx Recipient (10/09/2024 4:59 AM EDT) Renal Transplant Recipient The request and specimen(s) for this test have been received and transported to the [facility] at [address] [place] [address]. The [facility] will report results directly to the client. 10/09/2024 7:26 AM EDT [facility] Blood 10/09/2024 4:59 AM EDT 10/09/2024 7:26 AM EDT us Aaron Gonzalez MD LAB BLOOD ORDERABLES Final Resu lt Performing Organization Address [facility] Co de Phone Number [facility] [address] * Vancomycin, random (10/09/2024 4:59 AM EDT) Pathologist [facility] Vancomycin Random 11.0 ug/mL 10/09/2024 6:33 AM EDT [facility] Comment:Reference range not established for this test. Plasma 10/09/2024 4:5 9 AM EDT 10/09/2024 5:56 AM EDT us Jodi FreireD LAB BLOOD ORDERABLES Final Result [facility] [address] * (ABNORMAL) CBC (10/08/2024 5:52 PM EDT) WBC 5.6 3.8 - 10.8 10E3/uL 10/08/2024 6:52 PM EDT [facility] RBC 2.38(L) 4.20 - 5.80 10E6/uL 10/08/2024 6:52 PM EDT [facility] Hemoglobin 8.3(L) 13.2 - 17.1 g/dL 10/08/2024 6:52 PM EDT [facility] Hematocrit 24.6(L) 38.5 - 50.0 % 10/08/2024 6:52 PM EDT [facility] MCV 103.2(H) 80.0 - 100.0 fL 10/08/2024 6:52 PM EDT [facility] MCH 34.7(H) 27.0 - 33.0 pg 10/08/2024 6:52 PM EDT [facility] MCHC 33.6 32.0 - 36.0 g/dL 10/08/2024 6:52 PM EDT [facility] RDW 18.5(H) 11.0 - 15.0 % 10/08/2024 6:52 PM EDT [facility] Platelets 39(L) 140 - 400 10E3/uL 10/08/2024 6:52 PM EDT [facility] Comment:CNV MPV 8.1 7.5 - 11.5 fL 10/08/2024 6:52 PM EDT [facility] Whole Blood 10/08/2024 5:52 PM EDT 10/08/2024 6:45 PM EDT us Eileen Schroeder MD, PhD LAB BLOOD ORDERABLES Final Result [facility] [address] * Transfuse RBC Has consent been obtained? Yes; Transfusion Rate: Per dept routine (10/08/2024 1:17 PM EDT) us Eileen Schroeder MD, PhD NURSING TREATMENT ORD ERABLES - BLOOD ADMIN Final Result Performing Organization Address City/[facility]/ZIP Co de Phone Number EXTERNAL * Transfuse RBC Has consent been obtained? Yes; Transfusion Rate: Per dept routine, 1 Units (10/08/2024 1:17 PM EDT) Eileen Schroeder MD, PhD NURSING TREATMENT ORD ERABLES - BLOOD ADMIN Final Result Performing Organization Address City/[facility] Co de Phone Number EXTERNAL * (ABNORMAL) MMR(IgG) Panel (Measles, Mumps, Rubella) (10/08/2024 10:25 AM EDT) Mumps IgG Positive 10/08/2024 11:39 AM EDT [facility] MUMPS IGG NUM 99.00(H) 0.0 - 8.9 U/mL 10/08/2024 11:39 AM EDT [facility] Rubella IgG Scr Positive 10/08/2024 11:40 AM EDT [facility] RUB NUM 4.15(H) 0.00 - 0.89 INDEX 10/08/2024 11:40 AM EDT [facility] Rubeola Ab, IgG Positive 10/08/2024 11:39 AM EDT [facility] RUB IGG NUM 273.00(H) 0.00 - 13.40 U/mL 10/08/2024 11:39 AM EDT [facility] Serum 10/08/2024 10:2 5 AM [...] ORDERABLES Final Resu lt Performing Organization Address City/[facility]/ZIP Co de Phone Number [facility] [address] * (ABNORMAL) Hemoglobin A1C (10/08/2024 10:25 AM EDT) Hemoglobin A1C 3.7(L) 4.0 - 5.6 % 10/09/2024 1:22 PM EDT [facility] Comment: Hemoglobin A1c Interpretation Guidelines: [...] MD LAB BLOOD ORDERABLES Final Resu lt [facility] [address] * (ABNORMAL) Vitamin D 25 Hydroxy (10/08/2024 10:25 AM EDT) Vit D, 25-Hydroxy 7.1(L) 30.0 - 100.0 ng/mL 10/08/2024 11:36 AM EDT [facility] Comment: Vitamin D deficiency has been defined by the [place] [employer] (IOM) and an Endocrine Society [...] ORDERABLES Final Resu lt Performing Organization Address City/[facility]/ZIP Co de Phone Number [facility] [address] [facility]. [address] * Iron Studies (Iron + TIBC) (10/08/2024 10:25 AM EDT) Iron 81 50 - 212 ug/dL 10/08/2024 11:23 AM EDT [facility] % Iron Saturation SEE COMMENT 15.0 - 55.0 % 10/08/2024 11:23 AM EDT [facility] Comment:Unable to calculate result because contributing result outside reportable range.. TIBC SEE COMMENT 261 - 462 ug/dL 10/08/2024 11:23 AM EDT [facility] Comment:Unable to calculate result because contributing result outside reportable range.. Serum 10/08/2024 10:2 5 AM EDT 10/08/2024 10:49 AM EDT us Gerri Peterson MD LAB BLOOD ORDERABLES Final Resu lt Performing Organization Address [facility]/ZIP Co de Phone Number [facility] [address] [facility]. [address] * (ABNORMAL) Ferritin (10/08/2024 10:25 AM EDT) Ferritin 706.9(H) 23.9 - 336.2 ng/mL 10/08/2024 11:35 AM EDT [facility] Serum 10/08/2024 10:2 5 AM EDT 10/08/2024 10:49 AM EDT us Gerri Peterson MD LAB BLOOD ORDERABLES Final Resu lt [facility] [address] [facility]. [address] * QuantiFERON TB2 Ag (10/08/2024 10:25 AM EDT) QuantiFERON TB2 Ag Value 0.07 10/10/2024 10:41 AM EDT [facility] Plasma 10/08/2024 10:2 5 AM EDT 10/08/2024 11:05 AM EDT Gerri Peterson MD LAB BLOOD ORDERABLES Final Resu lt [facility] [address] [place] [address]. [address] * QuantiFERON TB1 Ag (10/08/2024 10:25 AM EDT) QuantiFERON TB1 Ag Value 0.06 10/10/2024 10:41 AM EDT [facility] Plasma 10/08/2024 10:2 5 AM EDT 10/08/2024 11:05 AM EDT Result [facility] Gerri Peterson MD LAB BLOOD ORDERABLES Final Resu lt Performing Organization Address [facility] Co de Phone Number [facility] [address] [facility]. [address] * QuantiFERON Nil (10/08/2024 10:25 AM EDT) QuantiFERON Nil 0.06 10:41 AM EDT [facility] Plasma 10/08/2024 10:2 5 AM EDT 10/08/2024 11:05 AM EDT Result [facility] Gerri Peterson MD LAB BLOOD ORDERABLES Final Resu lt Performing Organization Address [facility] Co de Phone Number [facility] [address] [place] [address]. [address] * QuantiFERON Mitogen (10/08/2024 10:25 AM EDT) QuantiFERON Interpretation Negative Negative 10/10/2024 10:41 AM EDT [facility] Comment:Negative result geovanny cates M. tuberculosis infection is NOT likely. Negative results do not preclude tuberculosis infection (especially in immunosuppressed patients). Negative results have a TB antigen minus Nil value less than 0.35 IU/mL. In cases with high suspicion of disease, retesting or additional testing with medical evaluation may be useful. QuantiFERON Mitogen 4.87 10/10 10:41 AM EDT [facility] Plasma 10/08/2024 10:2 5 AM EDT 10/08/2024 11:05 AM EDT Narrative [facility] - 10/10/2024 10:41 AM EDT [...] MD LAB BLOOD ORDERABLES Final Resu lt [facility] [address] [place], [place] [address] * Reticulocyte Count, Auto (10/08/2024 7:41 AM EDT) Retic Ct Pct 1.35 0.50 - 2.00 % 10/08/2024 9:12 AM EDT [facility] Retic Ct Abs 26,190 25,000 - 90,000 /uL 10/08/2024 9:14 AM EDT [facility] Immature Retic Fract 0.37 0.09 - 0.56 10/08/2024 9:12 AM EDT [facility] Whole Blood 10/08/2024 7:41 AM EDT 10/08/2024 8:51 AM EDT us Angie Blanchard MD LAB BLOOD ORDERABLES Final Res ult [facility] [address] [place] [address], [facility] * (ABNORMAL) Haptoglobin (10/08/2024 7:41 AM EDT) Haptoglobin <30(L) 44 - 215 mg/dL 10/08/2024 8:53 AM EDT [facility] Serum 10/08/2024 7:41 AM EDT 10/08/2024 7:51 AM EDT us Eileen Schroeder MD, PhD LAB BLOOD ORDERABLES Final Result Performing Organization Address [facility]/ZIP Co de Phone Number [facility] [address] [facility]. [address] * (ABNORMAL) CBC - Post Transfusion (10/08/2024 7:41 AM EDT) WBC 3.7(L) 3.8 - 10.8 10E3/uL 10/08/2024 8:34 AM EDT [facility] RBC 1.94(L) 4.20 - 5.80 10E6/uL 10/08/2024 8:34 AM EDT [facility] Hemoglobin 7.1(L) 13.2 - 17.1 g/dL 10/08/2024 8:34 AM EDT [facility] Hematocrit 20.0(L) 38.5 - 50.0 % 10/08/2024 8:34 AM EDT [facility] MCV 103.1(H) 80.0 - 100.0 fL 10/08/2024 8:34 AM EDT [facility] MCH 36.5(H) 27.0 - 33.0 pg 10/08/2024 8:34 AM EDT [facility] MCHC 35.4 32.0 - 36.0 g/dL 10/08/2024 8:34 AM EDT [facility] RDW 17.2(H) 11.0 - 15.0 % 10/08/2024 8:34 AM EDT [facility] Platelets 37(L) 140 - 400 10E3/uL 10/08/2024 8:34 AM EDT [facility] Comment: Specimen checked for clots. None detected. Slide Reviewed for PLT Clumps. None Seen. _Platelet Morphology Normal _Platelets Appear Decreased MPV 8.7 7.5 - 11.5 fL 10/08/2024 8:34 AM EDT [facility] Whole Blood 10/08/2024 7:41 AM EDT 10/08/2024 7:52 AM EDT Narrative [facility] - 10/08/2024 8:34 AM EDT Post-transfusion Eileen Schroeder MD, PhD LAB BLOOD ORDERABLES Final Result [facility] [address] [place] [address]. [address] * Antibody Screen (10/08/2024 7:41 AM EDT) Antibody Screen Negative 10/08/2024 8:26 AM EDT [facility] Blood 10/08/2024 7:41 AM EDT 10/08/2024 7:57 AM EDT Narrative [facility] - 10/08/2024 8:32 AM EDT Testing performed by [facility] Transfusion Service Eileen Schroeder MD, PhD BLOOD BANK TEST ORDER PAL Final Result Performing Organization Address City/[facility]/ZIP Co de Phone Number [facility] [address] [facility]. [address] * ABO/Rh (10/08/2024 7:41 AM EDT) ABO Grouping O 10/08/2024 8:14 AM EDT [facility] Rh Type Positive 10/08/2024 8:14 AM EDT [facility] Blood 10/08/2024 7:41 AM EDT 10/08/2024 7:57 AM EDT Eileen Schroeder MD, PhD BLOOD BANK TEST ORDER PAL Final Result [facility] [address] * (ABNORMAL) Lactate dehydrogenase (10/08/2024 5:36 AM EDT) LD 102(L) 110 - 270 U/L 10/08/2024 8:20 AM EDT [facility] Plasma 10/08/2024 5:36 AM EDT 10/08/2024 7:58 AM EDT us Angie Blanchard MD LAB BLOOD ORDERABLES Final Res ult [facility] [address] [facility]. [address] * (ABNORMAL) Protime-INR (10/08/2024 5:36 AM EDT) Pathologist [facility] Protime 26.9(H) 12.1 - 15.1 seconds 10/08/2024 6:11 AM EDT [facility] INR 2.4(H) 0.9 - 1.1 10/08/2024 6:11 AM EDT [facility] Comment: RECOMMENDED THERAPEUTIC RANGES USING INR : Stable oral anticoagulant therapy: 2.0 - 3.0 Mechanical prosthetic heart valve: 2.5 - 3.5 Recurrent acute myocardial infarction: 2.5 - 3.5 Plasma 10/08/2024 5:36 AM EDT 10/08/2024 5:52 AM EDT us Eileen Schroeder MD, PhD LAB BLOOD ORDERABLES Final Result [facility] [address] * (ABNORMAL) Hepatic Function Panel (10/08/2024 5:36 AM EDT) Total Bilirubin 7.7(H) 0.0 - 1.5 mg/dL 10/08/2024 6:25 AM EDT [facility] Bilirubin, Direct 4.28(H) 0.00 - 0.40 mg/dL 10/08/2024 6:25 AM EDT [facility] AST 34 13 - 39 U/L 10/08/2024 6:25 AM EDT [facility] ALT 16 7 - 52 U/L 10/08/2024 6:25 AM EDT [facility] Alkaline Phosphatase 103 36 - 125 U/L 10/08/2024 6:25 AM EDT [facility] Total Protein 4.7(L) 6.4 - 8.9 g/dL 10/08/2024 6:25 AM EDT [facility] Albumin 3.5 3.5 - 5.7 g/dL 10/08/2024 6:25 AM EDT [facility] Bilirubin, Indirect 3.42(H) 0.00 - 1.10 mg/dL 10/08/2024 6:25 AM EDT [facility] Plasma 10/08/2024 5:36 AM EDT 10/08/2024 5:52 AM EDT Eileen Schroeder MD, PhD LAB BLOOD ORDERABLES Final Result Performing Organization Address [facility]/ZIP Co de Phone Number [facility] [address] * Magnesium (10/08/2024 5:36 AM EDT) Magnesium 1.9 1.5 - 2.5 mg/dL 10/08/2024 6:25 AM EDT [facility] Plasma 10/08/2024 5:36 AM EDT 10/08/2024 5:52 AM EDT Eileen Schroeder MD, PhD LAB BLOOD ORDERABLES Final Result [facility] [address] * (ABNORMAL) Renal Function Panel w/EGFR (10/08/2024 5:36 AM EDT) Sodium 135 133 - 146 mmol/L 10/08/2024 6:25 AM EDT [facility] Potassium 3.2(L) 3.5 - 5.3 mmol/L 10/08/2024 6:25 AM EDT [facility] Chloride 106 98 - 110 mmol/L 10/08/2024 6:25 AM EDT [facility] CO2 17(L) 21 - 33 mmol/L 10/08/2024 6:25 AM EDT [facility] Anion Gap 12 3 - 16 mmol/L 10/08/2024 6:25 AM EDT [facility] BUN 61(H) 7 - 25 mg/dL 10/08/2024 6:25 AM EDT [facility] Creatinine 3.10(H) 0.60 - 1.30 mg/dL 10/08/2024 6:25 AM EDT [facility] Glucose 106(H) 70 - 100 mg/dL 10/08/2024 6:25 AM EDT [facility] Calcium 9.0 8.6 - 10.3 mg/dL 10/08/2024 6:25 AM EDT [facility] Phosphorus 4.0 2.1 - 4.7 mg/dL 10/08/2024 6:25 AM EDT [facility] Albumin 3.5 3.5 - 5.7 g/dL 10/08/2024 6:25 AM EDT [facility] Osmolality, Calculated 298 278 - 305 mOsm/kg 10/08/2024 6:25 AM EDT [facility] EGFR 25 10/08/2024 6:25 AM EDT [facility] Comment:As of 2021, the estimated [...] MD, PhD LAB BLOOD ORDERABLES Final Result [facility] [address] [place] [address], [facility] * (ABNORMAL) CBC (10/08/2024 5:36 AM EDT) WBC 3.2(L) 3.8 - 10.8 10E3/uL 10/08/2024 6:41 AM EDT [facility] RBC 1.86(L) 4.20 - 5.80 10E6/uL 10/08/2024 6:41 AM EDT [facility] Hemoglobin 6.9(L) 13.2 - 17.1 g/dL 10/08/2024 6:41 AM EDT [facility] Hematocrit 18.9(L) 38.5 - 50.0 % 10/08/2024 6:41 AM EDT [facility] MCV 101.6(H) 80.0 - 100.0 fL 10/08/2024 6:41 AM EDT [facility] MCH 36.9(H) 27.0 - 33.0 pg 10/08/2024 6:41 AM EDT [facility] MCHC 36.3(H) 32.0 - 36.0 g/dL 10/08/2024 6:41 AM EDT [facility] RDW 17.0(H) 11.0 - 15.0 % 10/08/2024 6:41 AM EDT [facility] Platelets 34(L) 140 - 400 10E3/uL 10/08/2024 6:41 AM EDT [facility] Comment: Specimen checked for clots. None detected. Slide Reviewed for PLT Clumps. None Seen. Platelet Estimate Decreased 10/08/2024 6:41 AM EDT [facility] MPV 8.4 7.5 - 11.5 fL 10/08/2024 6:41 AM EDT [facility] Whole Blood 10/08/2024 5:36 AM EDT 10/08/2024 5:53 AM EDT Narrative [facility] - 10/08/2024 6:41 AM EDT Peripheral blood smear was scanned per review criteria approved by the laboratory medical dir. us Eileen Schroeder MD, PhD LAB BLOOD ORDERABLES Final Result Performing Organization Address City/[facility]/ZIP Co de Phone Number [facility] [address] [facility]. [address] * Vancomycin, random (10/08/2024 5:36 AM EDT) Vancomycin Random 16.0 ug/mL 10/08/2024 6:20 AM EDT [facility] Comment:Reference range not established for this test. Plasma 10/08/2024 5:36 AM EDT 10/08/2024 5:52 AM EDT us Jodi Ortiz PharmD LAB BLOOD ORDERABLES Final Result Performing Organization Address [facility] Co de Phone Number [facility] [address] [facility]. [address] * Urine Drug Confirmation (10/07/2024 10:50 PM EDT) BARBITURATES NOT PRESENT 10/09/2024 1:33 PM EDT [facility] BENZODIAZEPINES PRESENT 1:33 PM EDT [facility] Nordiazepam 3 ng/mL 10/09/2024 1:33 PM EDT [facility] Temazepam 6 ng/mL 10/09/2024 1:33 PM EDT [facility] CANNABINOIDS NOT PRESENT 10/09/2024 1:33 PM EDT [facility] [employer] STIMULANTS NOT PRESENT 1:33 PM EDT [facility] OPIOID ANALGESICS PRESENT 025 1:33 PM EDT [facility] Oxycodone 300 ng/mL 10/09/2024 1:33 PM EDT [facility] Oxymorphone 32 ng/mL 10/09/2024 1:33 PM EDT [facility] Tramadol >1000 ng/mL 10/09/2024 1:33 PM EDT [facility] OPIOID ANTAGONISTS NOT PRESENT 10/09 1:33 PM EDT [facility] SEDATIVES/MUSCLE RELAXANTS NOT PRESENT 10/09/2024 1:33 PM EDT [facility] TRICYCLIC ANTIDEPRESSANTS NOT PRESENT 10/09/2024 1:33 PM EDT [facility] Urine 10/07/2024 10:5 0 PM EDT 10/08/2024 3:00 AM EDT Gerri Peterson MD URINE ORDERABLES Final Result Performing Organization Address [facility] Co de Phone Number [facility] [address] [facility]. [address] * Giardia Cryptosporidium Antigens (10/07/2024 10:50 PM EDT) Cryptosporidium Ag Negative Negative 2024 7:59 AM EDT [facility] Giardia Ag Negative Negative 10/08/2024 7:59 AM EDT [facility] Comment: Detection of Giardia and Cryptosporidium antigen is more sensitive and specific than microscopy. Because antigens are shed continuously, repeat testing is rarely warranted. Feces 10/07/2024 10:5 0 PM EDT 10/08/2024 1:53 AM EDT Comment:F Bisi Hernandez DO MICROBIOLOGY - GENERAL ORDERABLE S Final Result Performing Organization Address [facility] de Phone Number [facility] [address] [facility]. [address] * (ABNORMAL) Urine Drug Screen Reflex to Confirmation (10/07/2024 10:50 PM EDT) Amphetamine, 500 ng/mL Cutoff Negative Negative 10/08/2024 3:00 AM EDT [facility] Barbiturates UR, 300 ng/mL Cutoff Negative Negative 10/08/2024 3:00 AM EDT [facility] Buprenorphine, 5 ng/mL Cutoff Negative Negative 10/08/2024 3:00 AM EDT [facility] Benzodiazepines UR, 300 ng/mL Cutoff Negative Negative 10/08/2024 3:00 AM EDT [facility] Cocaine UR, 300 ng/mL Cutoff Negative Negative 10/08/2024 3:00 AM EDT [facility] Methadone, UR, 300 ng/mL Cutoff Negative Negative 10/08/2024 3:00 AM EDT [facility] Opiates UR, 300 ng/mL Cutoff Negative Negative 10/08/2024 3:00 AM EDT [facility] Oxycodone, 100 ng/mL Cutoff Presumptive Positive(A) Negative 10/08/2024 3:00 AM EDT [facility] Tricyclic Antidepressants, 300 ng/mL Cutoff Negative Negative 10/08/2024 3:00 AM EDT [facility] Comment:This test has been d eveloped and its performance characteristics determined by [facility] which is certified under the Clinical [...] Cutoff Negative Negative 10/08/2024 3:00 AM EDT [facility] Comment:This is a screening method only and may be associated with false positive and/or false negative results. Results are not definitive without additional confirmatory testing by mass spectrometry. Fentanyl, 2 ng/mL Cutoff Negative Negative 10/08/2024 3:00 AM EDT [facility] Comment:This test has been d eveloped and its performance characteristics determined by [facility] which is certified under the Clinical [...] PM EDT 10/08/2024 2:08 AM EDT Narrative [facility] - 10/08/2024 3:00 AM EDT CONFIRMATION TO FOLLOW us Gerri Peterson MD URINE ORDERABLES Final Result [facility] [address] [place], [place] [address] * Comprehensive Drug Screen (10/07/2024 10:50 PM EDT) Creatinine, Ur CANCELED mg/dL 10/08/2024 7:09 AM EDT [facility] Comment:The released value 8 7.30 was canceled by YAQUELIN on 10/08/2024 07:09 BARBITURATES CANCELED [facility] Butalbital CANCELED [facility] Phenobarbital CANCELED [facility] Secobarbital CANCELED [facility] BENZODIAZEPINES CANCELED [facility] Alprazolam CANCELED [facility] Clonazepam CANCELED [facility] Diazepam CANCELED [facility] Alpha-Hydroxyalprazo mcknight CANCELED [facility] Lorazepam CANCELED [facility] Midazolam CANCELED [facility] Nordiazepam CANCELED [facility] Oxazepam CANCELED [facility] Temazepam CANCELED [facility] CANNABINOIDS CANCELED [facility] THC-COOH CANCELED [facility] [employer] CANCELED [facility] Cocaine Metabolite(benzoylec gonine) CANCELED [facility] Amphetamine CANCELED [facility] Methamphetamine CANCELED [facility] MDA CANCELED [facility] MDEA CANCELED [facility] Phencyclindine (PCP) CANCELED [facility] OPIOID ANALGESICS CANCELED [facility] Heroin Metabolite(6-RAMONA) CANCELED [facility] Codeine CANCELED [facility] Morphine CANCELED [facility] Hydrocodone CANCELED [facility] Hydromorphone CANCELED [facility] Oxycodone CANCELED [facility] Oxymorphone CANCELED [facility] Meperidine CANCELED [facility] Normeperidine CANCELED [facility] [facility] Methadone CANCELED [facility] Methadone Metabolite (EDDP) CANCELED [facility] Tramadol CANCELED [facility] Fentanyl CANCELED [facility] Norfentanyl CANCELED [facility] Sufentanil CANCELED [facility] OPIOID ANTAGONISTS CANCELED [facility] Buprenorphine CANCELED [facility] Norbuprenorphine CANCELED [facility] Naltrexone CANCELED [facility] Naloxone [facility] SEDATIVES/MUSCLE RELAXANTS [facility] Carisoprodol [facility] Meprobamate [facility] TRICYCLIC ANTIDEPRESSANTS [facility] Amitriptyline [facility] Clomipramine [facility] Desipramine [facility] Doxepin [facility] Imipramine [facility] Nortriptyline [facility] Urine Creatinine CANCELED mg/dL [facility] Nitrite CANCELED [facility] Glutaraldehyde CANCELED [facility] pH CANCELED 10/08/2024 7:09 AM EDT [facility] Comment:The released value 5 .6 was canceled by YAQUELIN on 10/08/2024 07:09 Specific [place] CANCELED 10/09/19 7:09 AM EDT [facility] Comment:The released value 1 .009 was canceled by YAQUELIN on 10/08/2024 07:09 Bleach CANCELED [facility] Pyridinium Chlorochromate CANCELED [facility] Urine 10/07/2024 10:5 0 PM EDT 10/08/2024 2:07 AM EDT Narrative [facility] - 10/08/2024 7:09 AM EDT See accn [id number] Gerri Peterson MD URINE ORDERABLES Edited Result - Final [facility] [address] * Ova and Parasite Comprehensive w/ Giardia/Crypto (10/07/2024 10:50 PM EDT) O & P Method: Concentration and Trichrome Stain [facility] Results No Amoeba, Ova, Or Parasites Seen. -- O and P examination of additional specimens is recommended only for symptomatic patients, immunosuppressed patients or those with an appropriate travel history. [facility] Feces FECES / Unknown 10/07/2024 1 0:50 PM EDT 10/08/2024 1:53 AM EDT Comment:F Bisi Hernandez DO MICROBIOLOGY - GENERAL ORDERABLE S Final Result Performing Organization Address City/State/ZIP [place] de Phone Number [facility] [address] [place] [address], [facility] * Enteric Pathogen Panel (10/07/2024 10:50 PM EDT) Campylobacter Group (C. ecoli, C. jejuni, C. trino) Not Detected Not Detected 10/08/2024 4:40 AM EDT [facility] Salmonella species Not Detected Not Detected 10/08/2024 4:40 AM EDT [facility] Shigella species Not Detected Not Detected 10/08/2024 4:40 AM EDT [facility] Vibrio Group (Vibrio cholerae, Vibrio parahaemolyticus) Not Detected Not Detected 10/08/2024 4:40 AM EDT [facility] Yersinia enterocolitica Not Detected Not Detected 10/08/2024 4:40 AM EDT [facility] Shiga toxin 1 Not Detected Not Detected 10/08/2024 4:40 AM EDT [facility] Shiga toxin 2 Not Detected Not Detected 10/08/2024 4:40 AM EDT [facility] Norovirus Not Detected Not Detected 10/08/2024 4:40 AM EDT [facility] Rotavirus Not Detected Not Detected 10/08/2024 4:40 AM EDT [facility] Comment: The Enteric Pathogen Panel [...] ORDERABLE S Final Result Performing Organization Address City/State/[facility] Co de Phone Number [facility] [address] * Hepatitis C Antibody (10/07/2024 6:38 PM EDT) HCV Ab Nonreactive Nonreactive 10/07/2024 7:56 PM EDT [facility] Comment:Health Department no tified in accordance with reportable infectious disease guidelines. Serum 10/07/2024 6:38 PM EDT 10/07/2024 6:52 PM EDT [facility] - 10/07/2024 7:56 PM EDT Antibodies to HCV not detected; does not exclude the possibility of exposure to HCV. Gerri Peterson MD LAB BLOOD ORDERABLES Final Resu lt Performing Organization Address [facility] Co de Phone Number [facility] [address] [facility]. [address] * Hepatitis B Surface Antibody, Quantitati (10/07/2024 6:38 PM EDT) Hep B S Ab Nonreactive Nonreactive 10/07/2024 8:00 PM EDT [facility] HBSAB NUMBER 7.88 0.00 - 7.99 mIU/mL 10/07/2024 8:00 PM EDT [facility] Serum 10/07/2024 6:38 PM EDT 10/07/2024 6:52 PM EDT Narrative [facility] - 10/07/2024 8:00 PM EDT Individual is considered not immune to HBV infection. Gerri Peterson MD LAB BLOOD ORDERABLES Final Resu lt Performing Organization Address City/[facility]/ZIP Co de Phone Number [facility] [address] [facility]. [address] * Hepatitis B surface antigen (10/07/2024 6:38 PM EDT) Hep B Surface Ag Nonreactive Nonreactive 10/07/2024 7:51 PM EDT [facility] Comment:Health Department no tified in accordance with reportable infectious disease guidelines. Serum 10/07/2024 6:38 PM EDT 10/07/2024 6:52 PM EDT [facility] - 10/07/2024 7:51 PM EDT Specimen is considered negative for HBsAg. Gerri Peterson MD LAB BLOOD ORDERABLES Final Resu lt Performing Organization Address City/[facility]/ZIP Co de Phone Number [facility] [address] [facility]. [address] * Hepatitis A Antibody Total (10/07/2024 6:38 PM EDT) Anti-HAV Total (IgG + IgM) Nonreactive 10/07/2024 7:53 PM EDT [facility] Serum 10/07/2024 6:38 PM EDT 10/07/2024 6:52 PM EDT [facility] - 10/07/2024 7:53 PM EDT HAV antibodies not detected Gerri Peterson MD LAB BLOOD ORDERABLES Final Resu lt Performing Organization Address [facility] Co de Phone Number [facility] [address] [facility]. [address] * Hepatitis A IgM (10/07/2024 6:38 PM EDT) Hep A IgM Nonreactive Nonreactive 10/07/2024 7:46 PM EDT [facility] Serum 10/07/2024 6:38 PM EDT 10/07/2024 6:52 PM EDT [facility] - 10/07/2024 7:46 PM EDT IgM anti-HAV not detected. Does not exclude the possibility of exposure to or infection with HAV. Levels of IgM anti-HAV may be below the cut-off in early infection. Gerri Peterson MD LAB BLOOD ORDERABLES Final Resu lt Performing Organization Address City/[facility]/ZIP Co de Phone Number [facility] [address] [facility]. [address] * (ABNORMAL) Lipid Profile (10/07/2024 6:37 PM EDT) Non-HDL Cholesterol, Calculated See Note 0 - 129 mg/dL 10/07/2024 7:42 PM EDT [facility] Comment: Desirable: < 130 mg/dL Above Desirable: 130-159 mg/dL Borderline High: 160-189 mg/dL High: 190-219 mg/dL Very High: > 219 mg/dL Unable to calculate result either because contributing result(s) are outside of reportable range or are not available. Cholesterol, Total <25 0 - 200 mg/dL 10/07/2024 7:42 PM EDT [facility] Triglycerides 30 10 - 149 mg/dL 10/07/2024 7:42 PM EDT [facility] HDL 4(L) 60 - 92 mg/dL 10/07/2024 7:42 PM EDT [facility] Comment: LIPID PROFILE INTERPRETATION CHOLESTEROL,TOTAL(mg/dL) [...] Cholesterol See Note mg/dL 7:42 PM EDT [facility] Comment:Unable to calculate result either because contributing result(s) are outside of reportable range or are not available. Plasma 10/07/2024 6:37 PM EDT 10/07/2024 7:06 PM EDT [facility]ative [facility] - 10/07/2024 7:42 PM EDT LDL cholesterol calculated using the Friedewald equation. us Gerri Peterson MD LAB BLOOD ORDERABLES Final Resu lt [facility] [address] [place] [address], [facility] * (ABNORMAL) Alpha 1 Antitrypsin AAT Quant & Mutation (10/07/2024 6:37 PM EDT) A-1 Antitrypsin 99(L) 101 - 187 mg/dL 10/09/2024 4:28 AM EDT [facility] A-1 Antitrypsin Pheno Comment 10/10/2024 4:05 PM EDT [facility] Comment: A1A Phenotype is consistent with a heterozygous phenotype consisting of one M (normal) allele and one allele that cannot be identified at this time. The unknown allele is not consistent with Z (deficient), S (deficient), or F (deficient). MM Phenotype is considered to be normal , producing normal serum levels of vzmtd-1-xoehogzq inhibitor and not associated with clinical disease. [...] - 10/10/2024 4:08 PM EDT PERFORMED AT: [facility] [id number] HAND BUTTON SPLITTER: Bassam Khalil, PhD PHONE: [phone] PERFORMED AT: [facility] [id number] HAND BUTTON SPLITTER: Mandy Abdul MD PHONE: [phone] Result [facility] Gerri Peterson MD LAB BLOOD ORDERABLES Final Resu lt [facility] [address] [facility]. [address] * (ABNORMAL) CMV IgG Antibody (10/07/2024 6:37 PM EDT) Pathologist [facility] CMV IgG Positive(A ) Negative 10/07/2024 8:26 PM EDT [facility] CMV IGG NUM 8.40(H) 0.00 - 0.59 U/mL 10/07/2024 8:26 PM EDT [facility] Serum 10/07/2024 6:37 PM EDT 10/07/2024 6:50 PM EDT Gerri Peterson MD LAB BLOOD ORDERABLES Final Resu lt Performing Organization Address [facility]/ZIP Co de Phone Number [facility] [address] [facility]. [address] * HIV-1 and HIV-2 Antibodies w Reflex (10/07/2024 6:37 PM EDT) Pathologist [facility] HIV 1+2 AB/AGN Nonreactive Nonreactive 10/07/2024 7:54 PM EDT [facility] Serum 10/07/2024 6:37 PM EDT 10/07/2024 7:06 PM EDT Narrative [facility] - 10/07/2024 7:54 PM EDT \HIVRNR Result [facility] Gerri Peterson MD LAB BLOOD ORDERABLES Final Resu lt [facility] [address] [facility]. [address] * TSH (Thyroid Stimulating Hormone) (10/07/2024 6:37 PM EDT) Pathologist [facility] TSH 0.81 0.45 - 4.12 uIU/mL 10/07/2024 8:17 PM EDT [facility] Serum 10/07/2024 6:37 PM EDT 10/07/2024 6:50 PM EDT Gerri Peterson MD LAB BLOOD ORDERABLES Final Resu lt Performing Organization Address City/[facility] Co de Phone Number [facility] [address] [place] [address] * Katie-Watkins virus early antigen antibody, IgG (10/07/2024 6:37 PM EDT) [facility] EBV Early Antigen Ab, IgG <9.0 0.0 - 8.9 U/mL 10/09/2024 2:16 PM EDT [facility] Comment: Negative < 9.0 Equivocal 9.0 - 10.9 Positive >10.9 Serum Frozen 10/07/2024 6:37 PM EDT 10/09/2024 3:07 PM EDT Narrative [facility] - 10/09/2024 3:07 PM EDT PERFORMED AT: [facility] [address] [id number] HAND BUTTON SPLITTER: Bassam Khalil, PhD PHONE: [phone] Gerri Peterson MD LAB BLOOD ORDERABLES Final Resu lt Performing Organization Address [facility] de Phone Number [facility] [address] [place] [address] * (ABNORMAL) Varicella zoster antibody, IgG (10/07/2024 6:37 PM EDT) Pathologist [facility] Varicella IgG Positive( A) Negative S/CO 10/07/2024 8:34 PM EDT [facility] Comment:Result indicates the presence of detectable VZV IgG antibodies. A positive result is generally indicative of exposure to the pathogen or administration of specific immunoglobulins, but it is no indication of active infection or stage of disease. This test is not approved for determining vaccine-induced immunity to varicella zoster virus. VZV NUM 6.76(H) 0.00 - 0.99 S/CO 10/07/2024 8:34 PM EDT [facility] Serum 10/07/2024 6:37 PM EDT 10/07/2024 6:50 PM EDT Gerri Peterson MD LAB BLOOD ORDERABLES Final Resu lt Performing Organization Address [facility] de Phone Number [facility] [address] [place] [address] * Toxoplasma gondii antibody, IgG (10/07/2024 6:37 PM EDT) Toxoplasma Gondii IgG <3.0 0.0 - 7.1 IU/mL 10/09/2024 7:53 AM EDT [facility] Comment: Negative <7.2 Equivocal 7.2 - 8.7 Positive >8.7 Serum 10/07/2024 6:37 PM EDT 10/09/2024 8:07 AM EDT Narrative [facility] - 10/09/2024 8:07 AM EDT PERFORMED AT: [facility] [id number] HAND BUTTON SPLITTER: Bassam Khalil, PhD PHONE: [phone] Gerri Peterson MD LAB BLOOD ORDERABLES Final Resu lt Performing Organization Address [facility] de Phone Number [facility] [address] [place] [address]. [address] * Syphilis Screening (Trepia) (10/07/2024 6:37 PM EDT) Treponema Pallidum Negative Negative 10/07/2024 8:27 PM EDT [facility] Comment: No serological evidence of infection with Treponema pallidum (incubating or early primary syphilis cannot be excluded). Serum 10/07/2024 6:37 PM EDT 10/07/2024 6:50 PM EDT Gerri Peterson MD LAB BLOOD ORDERABLES Final Resu lt [facility] [address] [facility]. [address] * Strongyloides Ab (10/07/2024 6:37 PM EDT) Strongyloides Ab Negative Negative 10/11/19 11:51 AM EDT [facility] Serum 10/07/2024 6:37 PM EDT 10/10/2024 12:07 PM EDT Narrative [facility] - 10/10/2024 12:07 PM EDT PERFORMED AT: [facility] [id number] HAND BUTTON SPLITTER: Mandy Abdul MD PHONE: [phone] us Gerri Peterson MD LAB BLOOD ORDERABLES Final Resu lt Performing Organization Address [facility]/ZIP Co de Phone Number [facility] [address] [facility]. [address] * Phosphatidylethanol Confirmation, B (10/07/2024 6:37 PM EDT) PETH 16:0/18.1 (POPETH) <10 Cutoff: 10 ng/mL 10/10/2024 10:42 AM EDT [facility] Comment: Phosphatidylethanol (PEth) homologues result [...] Cutoff: 10 ng/mL 10/10/2024 10:42 AM EDT [facility] Comment: PEth 16:0/18:2 (PLPEth) Reference ranges are not well established PEth Interpretation Negative. 10/10 10:42 AM EDT [facility] Comment: ADDITIONAL INFORMATION This report is intended for use in clinical monitoring and management of patients. It is not intended for use in employment-related testing. This test was developed and its performance characteristics determined by [facility] in a manner consistent with CLIA requirements. This test has not been cleared or approved by the U.S. Food and Drug Administration. Test Performed by: [facility] [address] [place] [address] Lumber Sorter: Kathy Ortiz Ph.D.; CLIA# [id number] Whole Blood 10/07/2024 6:37 PM EDT 10/10/2024 10:42 AM EDT us Gerri Peterson MD LAB BLOOD ORDERABLES Final Resu lt [facility] [address] * (ABNORMAL) MMR(IgG) Panel (Measles, Mumps, Rubella) (10/07/2024 6:37 PM EDT) Mumps IgG Positive 10/07/2024 8:26 PM EDT [facility] MUMPS IGG NUM 77.80(H) 0.0 - 8.9 U/mL 10/07/2024 8:26 PM EDT [facility] Rubella IgG Scr Positive 10/07/2024 8:28 PM EDT [facility] RUB NUM 3.04(H) 0.00 - 0.89 INDEX 10/07/2024 8:28 PM EDT [facility] Rubeola Ab, IgG Positive 10/07/2024 8:26 PM EDT [facility] RUB IGG NUM 192.00(H) 0.00 - 13.40 U/mL 10/07/2024 8:26 PM EDT [facility] Serum 10/07/2024 6:37 PM EDT 10/07/2024 6:50 PM EDT Narrative [facility] - 10/07/2024 8:28 PM EDT [...] Final Resu lt Performing Organization Address [facility] Co de Phone Number [facility] [address] [place] [address]. [address] * IgA (10/07/2024 6:37 PM EDT) IgA 227.0 70.0 - 400.0 mg/dL 10/08/2024 11:07 AM EDT [facility] Comment:Please interpret the se findings in conjunction with clinical findings, protein electrophoresis, and immunotyping/immunofixation results. Serum 10/07/2024 6:37 PM EDT 10/07/2024 6:50 PM EDT Result [facility] Gerri Peterson MD LAB BLOOD ORDERABLES Final Resu lt Performing Organization Address [facility] Co de Phone Number [facility] [address] [place] [address]. [address] * Ethanol, Serum (10/07/2024 6:37 PM EDT) Ethanol <10 0 - 10 mg/dL 10/07/2024 8:36 PM EDT [facility] Serum 10/07/2024 6:37 PM EDT 10/07/2024 6:50 PM EDT Result [facility] Gerri Peterson MD LAB BLOOD ORDERABLES Final Resu lt Performing Organization Address [facility] Co de Phone Number [facility] [address] [place] [address]. [address] * ABO/Rh - Second (10/07/2024 6:37 PM EDT) ABO Grouping O 10/07/2024 7:16 PM EDT [facility] Rh Type Positive 10/07/2024 7:16 PM EDT [facility] Blood 10/07/2024 6:37 PM EDT 10/07/2024 6:56 PM EDT Narrative [facility] - 10/07/2024 7:18 PM EDT This is not a duplicate order. It is required that ABO be drawn twice for LIVER TRANSPLANT Gerri Peterson MD BLOOD BANK TEST ORDERABLES Denisse l Result Performing Organization Address City/[facility]/ZIP Co de Phone Number [facility] [address] * ABO/Rh- Initial (10/07/2024 6:37 PM EDT) ABO Grouping O 10/07/2024 7:59 PM EDT [facility] Rh Type Positive 10/07/2024 7:59 PM EDT [facility] Blood 10/07/2024 6:37 PM EDT 10/07/2024 7:25 PM EDT Gerri Peterson MD BLOOD BANK TEST ORDERABLES Denisse l Result Performing Organization Address City/[facility] Co de Phone Number [facility] [address] [facility]. [address] * X-ray Mandible minimum 4-views (10/07/2024 [...] EXAM: US ABDOMEN COMPLETE EXAM: US DUPLEX [id number] COMPLETE INDICATION: elevated bilirubin COMPARISON: Ultrasound and [...] EXAM: US ABDOMEN COMPLETE EXAM: US DUPLEX [id number] COMPLETE INDICATION: elevated bilirubin COMPARISON: Ultrasound and [...] 4:26 PM EDT us Bisi Hernandez DO [facility] [place] ORDERABLES Final Result * US Duplex [id number] Comp (10/07/2024 3:48 PM EDT) Anatomical Region [...] EXAM: US ABDOMEN COMPLETE EXAM: US DUPLEX [id number] COMPLETE INDICATION: elevated bilirubin COMPARISON: Ultrasound and [...] EXAM: US ABDOMEN COMPLETE EXAM: US DUPLEX [id number] COMPLETE INDICATION: elevated bilirubin COMPARISON: Ultrasound and [...] MD, PhD LAB BLOOD ORDERABLES Final Result [facility] [address] * (ABNORMAL) Hepatic Function Panel (10/07/2024 6:00 AM EDT) Total Bilirubin 9.7(H) 0.0 - 1.5 mg/dL 10/07/2024 7:10 AM EDT [facility] Bilirubin, Direct 5.21(H) 0.00 - 0.40 mg/dL 10/07/2024 7:10 AM EDT [facility] AST 39 13 - 39 U/L 10/07/2024 7:10 AM EDT [facility] ALT 18 7 - 52 U/L 10/07/2024 7:10 AM EDT [facility] Alkaline Phosphatase 98 36 - 125 U/L 10/07/2024 7:10 AM EDT [facility] Total Protein 4.8(L) 6.4 - 8.9 g/dL 10/07/2024 7:10 AM EDT [facility] Albumin 3.6 3.5 - 5.7 g/dL 10/07/2024 7:10 AM EDT [facility] Bilirubin, Indirect 4.49(H) 0.00 - 1.10 mg/dL 10/07/2024 7:10 AM EDT [facility] Plasma 10/07/2024 6:00 AM EDT 10/07/2024 6:39 AM EDT us Eileen Schroeder MD, PhD LAB BLOOD ORDERABLES Final Result [facility] [address] [facility]. [address] * Magnesium (10/07/2024 6:00 AM EDT) Magnesium 1.7 1.5 - 2.5 mg/dL 10/07/2024 7:10 AM EDT [facility] Plasma 10/07/2024 6:00 AM EDT 10/07/2024 6:39 AM EDT Eileen Schroeder MD, PhD LAB BLOOD ORDERABLES Final Result [facility] [address] [place] [address], [facility] * (ABNORMAL) Renal Function Panel w/EGFR (10/07/2024 6:00 AM EDT) Sodium 132(L) 133 - 146 mmol/L 10/07/2024 7:10 AM EDT [facility] Potassium 3.9 3.5 - 5.3 mmol/L 10/07/2024 7:10 AM EDT [facility] Chloride 103 98 - 110 mmol/L 10/07/2024 7:10 AM EDT [facility] CO2 19(L) 21 - 33 mmol/L 10/07/2024 7:10 AM EDT [facility] Anion Gap 10 3 - 16 mmol/L 10/07/2024 7:10 AM EDT [facility] BUN 64(H) 7 - 25 mg/dL 10/07/2024 7:10 AM EDT [facility] Creatinine 3.38(H) 0.60 - 1.30 mg/dL 10/07/2024 7:10 AM EDT [facility] Glucose 111(H) 70 - 100 mg/dL 10/07/2024 7:10 AM EDT [facility] Calcium 9.1 8.6 - 10.3 mg/dL 10/07/2024 7:10 AM EDT [facility] Phosphorus 4.2 2.1 - 4.7 mg/dL 10/07/2024 7:10 AM EDT [facility] Albumin 3.6 3.5 - 5.7 g/dL 10/07/2024 7:10 AM EDT [facility] Osmolality, Calculated 293 278 - 305 mOsm/kg 10/07/2024 7:10 AM EDT [facility] EGFR 22 10/07/2024 7:10 AM EDT [facility] Comment:As of 2021, the estimated [...] MD, PhD LAB BLOOD ORDERABLES Final Result [facility] [address] [place] [address], [facility] * (ABNORMAL) CBC (10/07/2024 6:00 AM EDT) WBC 3.3(L) 3.8 - 10.8 10E3/uL 10/07/2024 7:55 AM EDT [facility] RBC 2.06(L) 4.20 - 5.80 10E6/uL 10/07/2024 7:55 AM EDT [facility] Hemoglobin 7.4(L) 13.2 - 17.1 g/dL 10/07/2024 7:55 AM EDT [facility] Hematocrit 21.5(L) 38.5 - 50.0 % 10/07/2024 7:55 AM EDT [facility] MCV 104.1(H) 80.0 - 100.0 fL 10/07/2024 7:55 AM EDT [facility] MCH 35.8(H) 27.0 - 33.0 pg 10/07/2024 7:55 AM EDT [facility] MCHC 34.4 32.0 - 36.0 g/dL 10/07/2024 7:55 AM EDT [facility] RDW 17.5(H) 11.0 - 15.0 % 10/07/2024 7:55 AM EDT [facility] Platelets 35(L) 140 - 400 10E3/uL 10/07/2024 7:55 AM EDT [facility] Comment: Specimen checked for clots. None detected. Slide Reviewed for PLT Clumps. None Seen. _Platelet Morphology Normal _Platelets Appear Decreased Platelet Estimate Decreased 10/07/2024 7:55 AM EDT [facility] MPV 8.0 7.5 - 11.5 fL 10/07/2024 7:55 AM EDT [facility] Whole Blood 10/07/2024 6:00 AM EDT 10/07/2024 6:40 AM EDT [facility] - 10/07/2024 7:55 AM EDT Peripheral blood smear was scanned per review criteria approved by the laboratory medical dir. Eileen Schroeder MD, PhD LAB BLOOD ORDERABLES Final Result Performing Organization Address The [facility] Co de Phone Number [facility] [address] [facility]. [address] * AFP Tumor Marker (10/07/2024 6:00 AM EDT) [facility] AFP-Tumor Marker 2.0 0.0 - 9.0 ng/mL 10/07/2024 7:11 AM EDT [facility] Serum 10/07/2024 6:00 AM EDT 10/07/2024 6:39 AM EDT [facility] - 10/07/2024 7:11 AM EDT The testing method for AFP is a chemiluminescent immunoassay manufactured by [employer] Concentrations of AFP obtained by different assay methods or kits may vary and cannot be used interchangeably. AFP results cannot be interpreted as absolute evidence of the presence or absence of malignant disease. Shila Rivera MD LAB BLOOD ORDERABLES Final Resul t Performing Organization Address [facility]/ZIP Co de Phone Number [facility] [address] [facility]. [address] * Vancomycin, random (10/07/2024 6:00 AM EDT) Pathologist [facility] Vancomycin Random 21.1 ug/mL 10/07/2024 7:08 AM EDT [facility] Comment:Reference range not established for this test. Plasma 10/07/2024 6:00 AM EDT 10/07/2024 6:39 AM EDT Kiet FreireD LAB BLOOD ORDERABLES Final Re sult [facility] [address] * Osmolality (10/06/2024 2:50 PM EDT) Osmolality, Measured 304 278 - 305 mOsm/kg 10/06/2024 3:49 PM EDT [facility] Serum 10/06/2024 2:50 PM EDT 10/06/2024 2:56 PM EDT Chari Vanegas MD LAB BLOOD ORDERABLES Final Resul t Performing Organization Address [facility] Co de Phone Number [facility] [address] * CT Head WO contrast (10/06/2024 [...] Eileen Schroeder MD, PhD IMG CT ORDERABLES [facility] al Result * Chloride, urine, random (10/06/2024 1:25 PM EDT) Chloride, Ur <15 mmol/L 10/06/2024 1:56 PM EDT [facility] Comment:Reference range not established for this test. Urine 10/06/2024 1:25 PM EDT 10/06/2024 1:32 PM EDT Chari Vanegas MD URINE ORDERABLES Final Result [facility] [address] * Potassium, urine, random (10/06/2024 1:25 PM EDT) Potassium Urine Random 50.0 mmol/L 10/06/2024 1:56 PM EDT [facility] Comment:Reference range not established for this test. Urine 10/06/2024 1:25 PM EDT 10/06/2024 1:32 PM EDT us Chari Vanegas MD URINE ORDERABLES Final Result Performing Organization Address [facility] Co de Phone Number [facility] [address] [facility]. [address] * Sodium, urine, random (10/06/2024 1:25 PM EDT) Sodium, Ur <10 mmol/L 10/06/2024 1:56 PM EDT [facility] Comment:Reference range not established for this test. Urine 10/06/2024 1:25 PM EDT 10/06/2024 1:32 PM EDT us Chari Vanegas MD URINE ORDERABLES Final Result Performing Organization Address [facility] Co de Phone Number [facility] [address] [facility]. [address] * Creatinine, Urine, Random (10/06/2024 1:25 PM EDT) Creatinine, Urine 87.40 mg/dL 10/06/2024 1:56 PM EDT [facility] Comment:Reference range not established for this test. Urine 10/06/2024 1:25 PM EDT 10/06/2024 1:32 PM EDT us Chari Vanegas MD URINE ORDERABLES Final Result Performing Organization Address [facility] Co de Phone Number [facility] [address] [facility]. [address] * Osmolality, Urine (10/06/2024 1:25 PM EDT) Osmolality, Ur 386 50 - 1,200 mOsm/kg 10/06/2024 1:55 PM EDT [facility] Urine 10/06/2024 1:25 PM EDT 10/06/2024 1:32 PM EDT us Chari Vanegas MD URINE ORDERABLES Final Result Performing Organization Address [facility] Co de Phone Number [facility] [address] * Urine Drug Confirmation (10/06/2024 11:51 AM EDT) BARBITURATES NOT PRESENT 10/09/2024 3:23 PM EDT [facility] Comment:Results were recheck ed. BENZODIAZEPINES PRESENT 3:23 PM EDT [facility] Nordiazepam 3 ng/mL 10/09/2024 3:23 PM EDT [facility] Comment:Results were recheck ed. Temazepam 8 ng/mL 10/09/2024 3:23 PM EDT [facility] Comment:Results were recheck ed. CANNABINOIDS NOT PRESENT 10/09/2024 3:23 PM EDT [facility] [employer] STIMULANTS NOT PRESENT 3:23 PM EDT [facility] OPIOID ANALGESICS PRESENT 025 3:23 PM EDT [facility] Oxycodone 329 ng/mL 10/09/2024 3:23 PM EDT [facility] Oxymorphone 61 ng/mL 10/09/2024 3:23 PM EDT [facility] Tramadol >1000 ng/mL 10/09/2024 3:23 PM EDT [facility] OPIOID ANTAGONISTS NOT PRESENT 10/09 3:23 PM EDT [facility] SEDATIVES/MUSCLE RELAXANTS NOT PRESENT 10/09/2024 3:23 PM EDT [facility] TRICYCLIC ANTIDEPRESSANTS NOT PRESENT 10/09/2024 3:23 PM EDT [facility] Urine 10/06/2024 11:5 1 AM EDT 10/06/2024 1:13 PM EDT us Bisi Hernandez DO URINE ORDERABLES Final Result [facility] [address]. [address] * (ABNORMAL) Urine Drug Screen Reflex to Confirmation (10/06/2024 11:51 AM EDT) Amphetamine, 500 ng/mL Cutoff Negative Negative 10/06/2024 1:13 PM EDT [facility] Barbiturates UR, 300 ng/mL Cutoff Negative Negative 10/06/2024 1:13 PM EDT [facility] Buprenorphine, 5 ng/mL Cutoff Negative Negative 10/06/2024 1:13 PM EDT [facility] Benzodiazepines UR, 300 ng/mL Cutoff Negative Negative 10/06/2024 1:13 PM EDT [facility] Cocaine UR, 300 ng/mL Cutoff Negative Negative 10/06/2024 1:13 PM EDT [facility] Methadone, UR, 300 ng/mL Cutoff Negative Negative 10/06/2024 1:13 PM EDT [facility] Opiates UR, 300 ng/mL Cutoff Negative Negative 10/06/2024 1:13 PM EDT [facility] Oxycodone, 100 ng/mL Cutoff Presumptive Positive(A) Negative 10/06/2024 1:13 PM EDT [facility] Tricyclic Antidepressants, 300 ng/mL Cutoff Negative Negative 10/06/2024 1:13 PM EDT [facility] Comment:This test has been d eveloped and its performance characteristics determined by [facility] which is certified under the Clinical [...] Cutoff Negative Negative 10/06/2024 1:13 PM EDT [facility] Comment:This is a screening method only and may be associated with false positive and/or false negative results. Results are not definitive without additional confirmatory testing by mass spectrometry. Fentanyl, 2 ng/mL Cutoff Negative Negative 10/06/2024 1:13 PM EDT [facility] Comment:This test has been d eveloped and its performance characteristics determined by [facility] which is certified under the Clinical [...] AM EDT 10/06/2024 11:58 AM EDT Narrative [facility] - 10/06/2024 1:13 PM EDT CONFIRMATION TO FOLLOW us Bisi Hernandez DO URINE ORDERABLES Final Result Performing Organization Address [facility] Co de Phone Number [facility] [address] * Chloride, urine, random (10/06/2024 11:51 AM EDT) Chloride, Ur <15 mmol/L 10/06/2024 1:13 PM EDT [facility] Comment:Reference range not established for this test. Urine 10/06/2024 11:5 1 AM EDT 10/06/2024 11:57 AM EDT Bisi Hernandez DO URINE ORDERABLES Final Result Performing Organization Address [facility] Co de Phone Number [facility] [address] * Potassium, urine, random (10/06/2024 11:51 AM EDT) Potassium Urine Random 49.0 mmol/L 10/06/2024 1:13 PM EDT [facility] Comment:Reference range not established for this test. Urine 10/06/2024 11:5 1 AM EDT 10/06/2024 11:57 AM EDT us Bisi Hernandez DO URINE ORDERABLES Final Result Performing Organization Address [facility] Co de Phone Number [facility] [address] * Sodium, urine, random (10/06/2024 11:51 AM EDT) Sodium, Ur <10 mmol/L 10/06/2024 1:13 PM EDT [facility] Comment:Reference range not established for this test. Urine 10/06/2024 11:5 1 AM EDT 10/06/2024 11:57 AM EDT us Bisidante Hernandez DO URINE ORDERABLES Final Result [facility] [address] * Urinalysis w/Rfl to Microscopic (10/06/2024 11:51 AM EDT) Color, UA Yellow Yellow,Straw 10/06/2024 12:25 PM EDT [facility] Clarity, UA Clear Clear 10/06/2024 12:25 PM EDT [facility] Specific [place], UA 1.014 1.005 - 1.035 10/06/2024 12:25 PM EDT [facility] pH, UA 6.0 5.0 - 8.0 10/06/2024 12:25 PM EDT [facility] Protein, UA Negative Negative mg/dL 10/06/2024 12:25 PM EDT [facility] Glucose, UA Negative Negative mg/dL 10/06/2024 12:25 PM EDT [facility] Ketones, UA Negative Negative mg/dL 10/06/2024 12:25 PM EDT [facility] Bilirubin, UA Negative Negative 10/06/2024 12:25 PM EDT [facility] Blood, UA Negative Negative 10/06/2024 12:25 PM EDT [facility] Nitrite, UA Negative Negative 10/06/2024 12:25 PM EDT [facility] Urobilinogen, UA <2.0 0.2 - 1.9 mg/dL 10/06/2024 12:25 PM EDT [facility] Leukocyte Esterase, UA Negative Negative 10/06/2024 12:25 PM EDT [facility] Urine 10/06/2024 11:5 1 AM EDT 10/06/2024 11:57 AM EDT Narrative [facility] - 10/06/2024 12:25 PM EDT Microscopic testing is not performed when the dipstick is negative for blood, leukocyte, protein and nitrite. us Bisi Hernandez DO URINE ORDERABLES Final Result [facility] [address] * Lactic Acid, STAT (10/06/2024 7:38 AM EDT) Lactate 0.9 0.5 - 2.2 mmol/L 10/06/2024 8:05 AM EDT [facility] Plasma 10/06/2024 7:38 AM EDT 10/06/2024 7:42 AM EDT Chari Vanegas MD LAB BLOOD ORDERABLES Final Resul t [facility] [address] * (ABNORMAL) CBC, STAT (10/06/2024 7:37 AM EDT) WBC 5.6 3.8 - 10.8 10E3/uL 10/06/2024 8:22 AM EDT [facility] RBC 2.50(L) 4.20 - 5.80 10E6/uL 10/06/2024 8:22 AM EDT [facility] Hemoglobin 9.0(L) 13.2 - 17.1 g/dL 10/06/2024 8:22 AM EDT [facility] Hematocrit 25.3(L) 38.5 - 50.0 % 10/06/2024 8:22 AM EDT [facility] MCV 101.2(H) 80.0 - 100.0 fL 10/06/2024 8:22 AM EDT [facility] MCH 36.0(H) 27.0 - 33.0 pg 10/06/2024 8:22 AM EDT [facility] MCHC 35.6 32.0 - 36.0 g/dL 10/06/2024 8:22 AM EDT [facility] RDW 17.7(H) 11.0 - 15.0 % 10/06/2024 8:22 AM EDT [facility] Platelets 52(L) 140 - 400 10E3/uL 10/06/2024 8:22 AM EDT [facility] Comment: Specimen checked for clots. None detected. Slide Reviewed for PLT Clumps. None Seen. MPV 8.2 7.5 - 11.5 fL 10/06/2024 8:22 AM EDT [facility] Whole Blood 10/06/2024 7:37 AM EDT 10/06/2024 7:43 AM EDT us Chari Vanegas MD LAB BLOOD ORDERABLES Final Resul t [facility] [address] * (ABNORMAL) Comprehensive Metabolic Panel (10/06/2024 7:37 AM EDT) Sodium 129(L) 133 - 146 mmol/L 10/06/2024 8:16 AM EDT [facility] Potassium 4.4 3.5 - 5.3 mmol/L 10/06/2024 8:16 AM EDT [facility] Chloride 100 98 - 110 mmol/L 10/06/2024 8:16 AM EDT [facility] CO2 18(L) 21 - 33 mmol/L 10/06/2024 8:16 AM EDT [facility] Anion Gap 11 3 - 16 mmol/L 10/06/2024 8:16 AM EDT [facility] BUN 62(H) 7 - 25 mg/dL 10/06/2024 8:16 AM EDT [facility] Creatinine 3.40(H) 0.60 - 1.30 mg/dL 10/06/2024 8:16 AM EDT [facility] Glucose 98 70 - 100 mg/dL 10/06/2024 8:16 AM EDT [facility] Calcium 9.5 8.6 - 10.3 mg/dL 10/06/2024 8:16 AM EDT [facility] Total Bilirubin 14.3(H) 0.0 - 1.5 mg/dL 10/06/2024 8:16 AM EDT [facility] AST 57(H) 13 - 39 U/L 10/06/2024 8:16 AM EDT [facility] ALT 29 7 - 52 U/L 10/06/2024 8:16 AM EDT [facility] Alkaline Phosphatase 158(H) 36 - 125 U/L 10/06/2024 8:16 AM EDT [facility] Total Protein 5.6(L) 6.4 - 8.9 g/dL 10/06/2024 8:16 AM EDT [facility] Albumin 3.6 3.5 - 5.7 g/dL 10/06/2024 8:16 AM EDT [facility] Osmolality, Calculated 286 278 - 305 mOsm/kg 10/06/2024 8:16 AM EDT [facility] EGFR 22 10/06/2024 8:16 AM EDT [facility] Comment:As of 2021, the estimated [...] MD LAB BLOOD ORDERABLES Final Resul t [facility] [address] [place] [id number] * (ABNORMAL) Venous Blood Gas, Line/Syringe, STAT (10/06/2024 7:37 AM EDT) PH-Line Draw 7.27(L) 7.32 - 7.42 10/06/2024 7:46 AM EDT [facility] PCO2-Line Draw 36(L) 41 - 51 mm Hg 10/06/2024 7:46 AM EDT [facility] PO2-Line Draw 44(H) 25 - 40 mm Hg 10/06/2024 7:46 AM EDT [facility] HCO3-Line Draw 17(L) 24 - 28 mmol/L 10/06/2024 7:46 AM EDT [facility] CO2 Content-Line Draw 18(L) 25 - 29 mmol/L 10/06/2024 7:46 AM EDT [facility] Base Excess-Line Draw -9.6(L) -2.0 - 3.0 mmol/L 10/06/2024 7:46 AM EDT [facility] %HBO2-Line Draw 69.8 40.0 - 70.0 % 10/06/2024 7:46 AM EDT [facility] Carboxyhgb-Ludivina e Draw 0.7 % 10/06/2024 7:46 AM EDT [facility] Comment: CARBOXYHEMOGLOBIN (CO) REFERENCE RANGES: Non-Smokers: <2 % Smokers: <8 % TOXIC: >20 % Methemoglobin- Line Draw 0.3 0.0 - 1.5 % 10/06/2024 7:46 AM EDT [facility] Reduced Hemoglobin-Ludivina e Draw 29.2(H) 0.0 - 5.0 % 10/06/2024 7:46 AM EDT [facility] Venous, Line Draw 10/06/2024 7:37 AM EDT 10/06/2024 7:43 AM EDT Chari Vanegas MD LAB BLOOD ORDERABLES Final Resul t Performing Organization Address City/State/[facility] Co de Phone Number [facility] [address] [place] [address], [facility] * (ABNORMAL) Venous Blood Gas, Line/Syringe, STAT (10/06/2024 4:03 AM EDT) PH-Line Draw 7.21(L) 7.32 - 7.42 10/06/2024 4:16 AM EDT [facility] PCO2-Line Draw 41 41 - 51 mm Hg 10/06/2024 4:16 AM EDT [facility] PO2-Line Draw 32 25 - 40 mm Hg 10/06/2024 4:16 AM EDT [facility] HCO3-Line Draw 16(L) 24 - 28 mmol/L 10/06/2024 4:16 AM EDT [facility] CO2 Content-Line Draw 18(L) 25 - 29 mmol/L 10/06/2024 4:16 AM EDT [facility] Base Excess-Line Draw -10.8(L) -2.0 - 3.0 mmol/L 10/06/2024 4:16 AM EDT [facility] %HBO2-Line Draw 47.5 40.0 - 70.0 % 10/06/2024 4:16 AM EDT [facility] Carboxyhgb-Ludivina e Draw 2.0 % 10/06/2024 4:16 AM EDT [facility] Comment: CARBOXYHEMOGLOBIN (CO) REFERENCE RANGES: Non-Smokers: <2 % Smokers: <8 % TOXIC: >20 % Methemoglobin- Line Draw 0.7 0.0 - 1.5 % 10/06/2024 4:16 AM EDT [facility] Reduced Hemoglobin-Ludivina e Draw 49.8(H) 0.0 - 5.0 % 10/06/2024 4:16 AM EDT [facility] Venous, Line Draw 10/06/2024 4:03 AM EDT 10/06/2024 4:12 AM EDT us Bisi Hernandez DO LAB BLOOD ORDERABLES Final Resul t [facility] [address] [place] [address], [facility] * (ABNORMAL) Protime-INR (10/06/2024 4:01 AM EDT) Protime 21.3(H) 12.1 - 15.1 seconds 10/06/2024 4:40 AM EDT [facility] INR 1.8(H) 0.9 - 1.1 10/06/2024 4:40 AM EDT [facility] Comment: RECOMMENDED THERAPEUTIC RANGES USING INR : Stable oral anticoagulant therapy: 2.0 - 3.0 Mechanical prosthetic heart valve: 2.5 - 3.5 Recurrent acute myocardial infarction: 2.5 - 3.5 Plasma 10/06/2024 4:01 AM EDT 10/06/2024 4:11 AM EDT [employer]ashion [employer] DO LAB BLOOD ORDERABLES Final Resul t [facility] [address] [place] [address], [facility] * (ABNORMAL) Hepatic Function Panel, AM (10/06/2024 4:01 AM EDT) Total Bilirubin 14.7(H) 0.0 - 1.5 mg/dL 10/06/2024 4:57 AM EDT [facility] Bilirubin, Direct 7.08(H) 0.00 - 0.40 mg/dL 10/06/2024 4:57 AM EDT [facility] AST 60(H) 13 - 39 U/L 10/06/2024 4:57 AM EDT [facility] ALT 31 7 - 52 U/L 10/06/2024 4:57 AM EDT [facility] Alkaline Phosphatase 162(H) 36 - 125 U/L 10/06/2024 4:57 AM EDT [facility] Total Protein 5.3(L) 6.4 - 8.9 g/dL 10/06/2024 4:57 AM EDT [facility] Albumin 3.4(L) 3.5 - 5.7 g/dL 10/06/2024 4:57 AM EDT [facility] Bilirubin, Indirect 7.62(H) 0.00 - 1.10 mg/dL 10/06/2024 4:57 AM EDT [facility] Plasma 10/06/2024 4:01 AM EDT 10/06/2024 4:22 AM EDT [facility] DO LAB BLOOD ORDERABLES Final Resul t [facility] [address] [facility] [place] [address], [facility] * Magnesium (10/06/2024 4:01 AM EDT) Magnesium 1.8 1.5 - 2.5 mg/dL 10/06/2024 4:57 AM EDT [facility] Plasma 10/06/2024 4:01 AM EDT 10/06/2024 4:22 AM EDT us Bisi Hernandez DO LAB BLOOD ORDERABLES Final Resul t [facility] [address] [place] [address], [facility] * (ABNORMAL) Renal Function Panel w/EGFR (10/06/2024 4:01 AM EDT) Sodium 129(L) 133 - 146 mmol/L 10/06/2024 4:57 AM EDT [facility] Potassium 4.7 3.5 - 5.3 mmol/L 10/06/2024 4:57 AM EDT [facility] Chloride 100 98 - 110 mmol/L 10/06/2024 4:57 AM EDT [facility] CO2 16(L) 21 - 33 mmol/L 10/06/2024 4:57 AM EDT [facility] Anion Gap 13 3 - 16 mmol/L 10/06/2024 4:57 AM EDT [facility] BUN 61(H) 7 - 25 mg/dL 10/06/2024 4:57 AM EDT [facility] Creatinine 3.49(H) 0.60 - 1.30 mg/dL 10/06/2024 4:57 AM EDT [facility] Glucose 104(H) 70 - 100 mg/dL 10/06/2024 4:57 AM EDT [facility] Calcium 9.2 8.6 - 10.3 mg/dL 10/06/2024 4:57 AM EDT [facility] Phosphorus 5.3(H) 2.1 - 4.7 mg/dL 10/06/2024 4:57 AM EDT [facility] Albumin 3.4(L) 3.5 - 5.7 g/dL 10/06/2024 4:57 AM EDT [facility] Osmolality, Calculated 286 278 - 305 mOsm/kg 10/06/2024 4:57 AM EDT [facility] EGFR 22 10/06/2024 4:57 AM EDT [facility] Comment:As of 2021, the estimated [...] DO LAB BLOOD ORDERABLES Final Resul t [facility] [address] * (ABNORMAL) CBC (10/06/2024 4:01 AM EDT) WBC 7.6 3.8 - 10.8 10E3/uL 10/06/2024 5:16 AM EDT [facility] RBC 2.77(L) 4.20 - 5.80 10E6/uL 10/06/2024 5:16 AM EDT [facility] Hemoglobin 10.1(L) 13.2 - 17.1 g/dL 10/06/2024 5:16 AM EDT [facility] Hematocrit 28.4(L) 38.5 - 50.0 % 10/06/2024 5:16 AM EDT [facility] MCV 102.4(H) 80.0 - 100.0 fL 10/06/2024 5:16 AM EDT [facility] MCH 36.4(H) 27.0 - 33.0 pg 10/06/2024 5:16 AM EDT [facility] MCHC 35.5 32.0 - 36.0 g/dL 10/06/2024 5:16 AM EDT [facility] RDW 18.0(H) 11.0 - 15.0 % 10/06/2024 5:16 AM EDT [facility] Platelets 53(L) 140 - 400 10E3/uL 10/06/2024 5:16 AM EDT [facility] Comment:Specimen checked for clots. None detected. MPV 8.4 7.5 - 11.5 fL 10/06/2024 5:16 AM EDT [facility] Whole Blood 10/06/2024 4:01 AM EDT 10/06/2024 4:11 AM EDT [facility] LAB BLOOD ORDERABLES Final Resul t Performing Organization Address [facility] Co de Phone Number [facility] [address] [place] [address]. [address] * Hepatitis C Antibody (10/06/2024 4:01 AM EDT) HCV Ab Nonreactive Nonreactive 10/06/2024 5:12 AM EDT [facility] Comment:Health Department no tified in accordance with reportable infectious disease guidelines. Serum 10/06/2024 4:01 AM EDT 10/06/2024 4:11 AM EDT Narrative [facility] - 10/06/2024 5:12 AM EDT Antibodies to HCV not detected; does not exclude the possibility of exposure to HCV. [facility] BLOOD ORDERABLES Final Resul t Performing Organization Address City/[facility]/ZIP Co de Phone Number [facility] [address] [facility]. [address] * (ABNORMAL) Hepatitis B Surface Antibody, Quantitati (10/06/2024 4:01 AM EDT) Hep B S Ab Reactive( A) Nonreactive 10/06/2024 5:16 AM EDT [facility] HBSAB NUMBER 11.50(H) 0.00 - 7.99 mIU/mL 10/06/2024 5:16 AM EDT [facility] Serum 10/06/2024 4:01 AM EDT 10/06/2024 4:11 AM EDT [facility] - 10/06/2024 5:16 AM EDT Individual is considered immune to HBV infection. [facility] BLOOD ORDERABLES Final Resul t Performing Organization Address City/[facility] Co de Phone Number [facility] [address] * Hepatitis B surface antigen (10/06/2024 4:01 AM EDT) Hep B Surface Ag Nonreactive Nonreactive 10/06/2024 5:07 AM EDT [facility] Comment:Health Department no tified in accordance with reportable infectious disease guidelines. Serum 10/06/2024 4:01 AM EDT 10/06/2024 4:11 AM EDT [facility] - 10/06/2024 5:07 AM EDT Specimen is considered negative for HBsAg. [facility] BLOOD ORDERABLES Final Resul t Performing Organization Address [facility] Co de Phone Number [facility] [address] [facility]. [address] * Hepatitis A Antibody Total (10/06/2024 4:01 AM EDT) Anti-HAV Total (IgG + IgM) Nonreactive 10/06/2024 5:08 AM EDT [facility] Serum 10/06/2024 4:01 AM EDT 10/06/2024 4:11 AM EDT [facility] - 10/06/2024 5:08 AM EDT HAV antibodies not detected [facility] BLOOD ORDERABLES Final Resul t [facility] [address] * Hepatitis A IgM (10/06/2024 4:01 AM EDT) Hep A IgM Nonreactive Nonreactive 10/06/2024 5:02 AM EDT [facility] Serum 10/06/2024 4:01 AM EDT 10/06/2024 4:11 AM EDT Narrative [facility] - 10/06/2024 5:02 AM EDT IgM anti-HAV not detected. Does not exclude the possibility of exposure to or infection with HAV. Levels of IgM anti-HAV may be below the cut-off in early infection. [facility] LAB BLOOD ORDERABLES Final Resul t Performing Organization Address City/[facility]/ZIP Co de Phone Number [facility] [address] [facility]. [address] * (ABNORMAL) Salicylate Level (10/06/2024 4:01 AM EDT) Salicylate Lvl <3(L) 10 - 30 mg/dL 10/06/2024 4:58 AM EDT [facility] Serum 10/06/2024 4:01 AM EDT 10/06/2024 4:22 AM EDT [facility] LAB BLOOD ORDERABLES Final Resul t Performing Organization Address [facility] Co de Phone Number [facility] [address] * AFP Tumor Marker (10/06/2024 4:01 AM EDT) AFP-Tumor Marker 2.6 0.0 - 9.0 ng/mL 10/06/2024 4:55 AM EDT [facility] Serum 10/06/2024 4:01 AM EDT 10/06/2024 4:22 AM EDT Narrative [facility] - 10/06/2024 4:55 AM EDT The testing method for AFP is a chemiluminescent immunoassay manufactured by [employer] Concentrations of AFP obtained by different assay methods or kits may vary and cannot be used interchangeably. AFP results cannot be interpreted as absolute evidence of the presence or absence of malignant disease. Bisi Hernandez LAB BLOOD ORDERABLES Final Resul t [facility] [address] [place] [address], [facility] * Upper Respiratory Viral/Bacterial Panel-[employer] Only (10/06/2024 3:12 AM EDT) Adenovirus Not Detected Not Detected 10/06/2024 11:38 PM EDT [facility] Coronavirus (229E,HKU1,NL63,OC 43) Not Detected Not Detected 10/06/2024 11:38 PM EDT [facility] SARS-CoV-2 Not Detected Not Detected 10/06/2024 11:38 PM EDT [facility] Human Metapneumovirus Not Detected Not Detected 10/06/2024 11:38 PM EDT [facility] Human Rhinovirus/Enterov irus Not Detected Not Detected 10/06/2024 11:38 PM EDT [facility] Influenza A Not Detected Not Detected 10/06/2024 11:38 PM EDT [facility] Influenza A H1 Not Detected Not Detected 10/06/2024 11:38 PM EDT [facility] Influenza A/H1-2009 Not Detected Not Detected 10/06/2024 11:38 PM EDT [facility] Influenza A H3 Not Detected Not Detected 10/06/2024 11:38 PM EDT [facility] Influenza B Not Detected Not Detected 10/06/2024 11:38 PM EDT [facility] Parainfluenza 1 Not Detected Not Detected 10/06/2024 11:38 PM EDT [facility] Parainfluenza 2 Not Detected Not Detected 10/06/2024 11:38 PM EDT [facility] Parainfluenza 3 Not Detected Not Detected 10/06/2024 11:38 PM EDT [facility] Parainfluenza 4 Not Detected Not Detected 10/06/2024 11:38 PM EDT [facility] Resp. Syncycial Virus A Not Detected Not Detected 10/06/2024 11:38 PM EDT [facility] Resp. Syncycial Virus B Not Detected Not Detected 10/06/2024 11:38 PM EDT [facility] Chlamydia pneumoniae Not Detected Not Detected 10/06/2024 11:38 PM EDT [facility] Mycoplasma pneumoniae Not Detected Not Detected 10/06/2024 11:38 PM EDT [facility] Comment: The Respiratory Viral-Bacterial Panel [...] Test results have been sent to the [facility] in accordance with state requirements. For a fact sheet for healthcare providers, see https://www.fda.gov/media/390365/download. For a fact sheet for patients, see https://www.fda.gov/media/946272/download. Nasopharyngeal Swab NASOPHARYNGEAL SWAB / Unknown 10/06/2024 3:12 AM EDT 10/06/2024 5:41 PM EDT Comment:[employer] us Bisi Hernandez DO BODY FLUIDS AND STOOLS ORDERABLE S Final Result [facility] [address] * X-ray Portable Chest (10/06/2024 1:16 [...] 10/06/2024 2:33 AM EDT Bisi Hernandez DO [facility] ORDERABLE S Final Result * [...] and its performance characteristics determined by [facility] in a manner consistent with CLIA requirements. This test has not been cleared or approved by the U.S. Food and Drug Administration. Test Performed by: [place] [address] Lumber Sorter: Kathy Ortiz Ph.D.; CLIA# [id number] Whole Blood 10/06/2024 1:04 AM EDT 10/10/2024 3:11 AM EDT [facility] LAB BLOOD ORDERABLES Final Resul t Performing Organization Address City/[facility]/ZIP Co de Phone Number [facility] [address] * (ABNORMAL) Acetaminophen Level (10/06/2024 1:04 AM EDT) Acetaminophen Level <10(L) 10 - 30 ug/mL 10/06/2024 2:08 AM EDT [facility] Serum 10/06/2024 1:04 AM EDT 10/06/2024 1:30 AM EDT [facility] LAB BLOOD ORDERABLES Final Resul t [facility] [address] * Ethanol, Serum (10/06/2024 1:04 AM EDT) Ethanol <10 0 - 10 mg/dL 10/06/2024 2:08 AM EDT [facility] Serum 10/06/2024 1:04 AM EDT 10/06/2024 1:30 AM EDT [employer] LAB BLOOD ORDERABLES Final Resul t [facility] [address] [facility]. [address] * #2 Blood culture-Peripheral site 2 (10/06/2024 1:04 AM EDT) Culture Result No Growth After 5 Days [facility] Blood BLOOD SPECIMEN / Unknown 10/06/2024 1:04 AM EDT 10/06/2024 4:57 AM EDT Narrative [facility] - 10/11/2024 5:05 AM EDT Suboptimal volume of blood received. Interpret results with caution. Bisi Hernandez MICROBIOLOGY - GENERAL ORDERABLE S Final Result Performing Organization Address City/[facility]/ZIP Co de Phone Number [facility] [address] [facility]. [address] * #1 Blood culture-Peripheral site 1 (10/06/2024 1:04 AM EDT) Culture Result No Growth After 5 Days [facility] Blood BLOOD SPECIMEN / Unknown 10/06/2024 1:04 AM EDT 10/06/2024 4:57 AM EDT Narrative [facility] - 10/11/2024 5:01 AM EDT Suboptimal volume of blood received. Interpret results with caution. Bisi Akana maría DO MICROBIOLOGY - GENERAL ORDERABLE S Final Result [facility] [address] * Ammonia (10/06/2024 1:04 AM EDT) Ammonia 77 27 - 90 ug/dL 10/06/2024 2:00 AM EDT [facility] Plasma 10/06/2024 1:04 AM EDT 10/06/2024 1:30 AM EDT [facility] LAB BLOOD ORDERABLES Final Resul t Performing Organization Address City/[facility] Co de Phone Number [facility] [address] * Thyroid Function [place] (10/06/2024 1:04 AM EDT) TSH 0.84 0.45 - 4.12 uIU/mL 10/06/2024 2:20 AM EDT [facility] Serum 10/06/2024 1:04 AM EDT 10/06/2024 1:39 AM EDT [facility] LAB BLOOD ORDERABLES Final Resul t Performing Organization Address City/[facility] Co de Phone Number [facility] [address] * (ABNORMAL) Protime-INR (10/06/2024 1:04 AM EDT) Protime 22.8(H) 12.1 - 15.1 seconds 10/06/2024 1:48 AM EDT [facility] INR 1.9(H) 0.9 - 1.1 10/06/2024 1:48 AM EDT [facility] Comment: RECOMMENDED THERAPEUTIC RANGES USING INR : Stable oral anticoagulant therapy: 2.0 - 3.0 Mechanical prosthetic heart valve: 2.5 - 3.5 Recurrent acute myocardial infarction: 2.5 - 3.5 Plasma 10/06/2024 1:04 AM EDT 10/06/2024 1:30 AM EDT us [employer] DO LAB BLOOD ORDERABLES Final Resul t [facility] [address] [facility]. [address] * Lactic Acid, STAT (10/06/2024 1:04 AM EDT) Lactate 1.2 0.5 - 2.2 mmol/L 10/06/2024 1:59 AM EDT [facility] Plasma 10/06/2024 1:04 AM EDT 10/06/2024 1:30 AM EDT us [employer] DO LAB BLOOD ORDERABLES Final Resul t Performing Organization Address [facility] Co de Phone Number [facility] [address] * (ABNORMAL) CBC, STAT (10/06/2024 1:04 AM EDT) WBC 7.9 3.8 - 10.8 10E3/uL 10/06/2024 2:36 AM EDT [facility] RBC 2.76(L) 4.20 - 5.80 10E6/uL 10/06/2024 2:36 AM EDT [facility] Hemoglobin 9.9(L) 13.2 - 17.1 g/dL 10/06/2024 2:36 AM EDT [facility] Hematocrit 28.0(L) 38.5 - 50.0 % 10/06/2024 2:36 AM EDT [facility] MCV 101.5(H) 80.0 - 100.0 fL 10/06/2024 2:36 AM EDT [facility] MCH 35.7(H) 27.0 - 33.0 pg 10/06/2024 2:36 AM EDT [facility] MCHC 35.2 32.0 - 36.0 g/dL 10/06/2024 2:36 AM EDT [facility] RDW 17.9(H) 11.0 - 15.0 % 10/06/2024 2:36 AM EDT [facility] Platelets 58(L) 140 - 400 10E3/uL 10/06/2024 2:36 AM EDT [facility] Comment: Specimen checked for clots. None detected. Slide Reviewed for PLT Clumps. None Seen. MPV 8.2 7.5 - 11.5 fL 10/06/2024 2:36 AM EDT [facility] Whole Blood 10/06/2024 1:04 AM EDT 10/06/2024 1:31 AM EDT us Bisi Hernandez DO LAB BLOOD ORDERABLES Final Resul t [facility] [address] [place] [address], [facility] * (ABNORMAL) Comprehensive Metabolic Panel (10/06/2024 1:04 AM EDT) Sodium 127(L) 133 - 146 mmol/L 10/06/2024 2:05 AM EDT [facility] Potassium 4.5 3.5 - 5.3 mmol/L 10/06/2024 2:05 AM EDT [facility] Chloride 99 98 - 110 mmol/L 10/06/2024 2:05 AM EDT [facility] CO2 18(L) 21 - 33 mmol/L 10/06/2024 2:05 AM EDT [facility] Anion Gap 10 3 - 16 mmol/L 10/06/2024 2:05 AM EDT [facility] BUN 59(H) 7 - 25 mg/dL 10/06/2024 2:05 AM EDT [facility] Creatinine 3.54(H) 0.60 - 1.30 mg/dL 10/06/2024 2:05 AM EDT [facility] Glucose 116(H) 70 - 100 mg/dL 10/06/2024 2:05 AM EDT [facility] Calcium 9.0 8.6 - 10.3 mg/dL 10/06/2024 2:05 AM EDT [facility] Total Bilirubin 14.8(H) 0.0 - 1.5 mg/dL 10/06/2024 2:05 AM EDT [facility] AST 61(H) 13 - 39 U/L 10/06/2024 2:05 AM EDT [facility] ALT 33 7 - 52 U/L 10/06/2024 2:05 AM EDT [facility] Alkaline Phosphatase 174(H) 36 - 125 U/L 10/06/2024 2:05 AM EDT [facility] Total Protein 5.2(L) 6.4 - 8.9 g/dL 10/06/2024 2:05 AM EDT [facility] Albumin 3.3(L) 3.5 - 5.7 g/dL 10/06/2024 2:05 AM EDT [facility] Osmolality, Calculated 282 278 - 305 mOsm/kg 10/06/2024 2:05 AM EDT [facility] EGFR 21 10/06/2024 2:05 AM EDT [facility] Comment:As of 2021, the estimated [...] DO LAB BLOOD ORDERABLES Final Resul t [facility] [address] [place] [address], [facility] documented in this encounter Visit [...] Oral, 3 times daily, First dose on [facility] 10/09/24 at 1300 Given 10/17/2024 8:49 [...] patient is non-communicative (CPOT 3-5), Starting on [facility] 10/07/24 at 1205 oxyCODONE (ROXICODONE) immediate release tablet 5 mg 5 mg, Oral, Every 6 hours PRN, severe pain (NRS 7-10) or if patient is non-communicative (CPOT 6-8), Starting on [facility] 10/07/24 at 1205 Given 10/17/2024 8:48 AM [...] Provider: Anu Wolff RN)[id number] (Given - Provider: nAu Wolff RN)2022 (Given - Provider: Soco [place], [...] patient is non-communicative (CPOT 6-8), Starting on [facility] 10/07/24 at 1205 2108 (Given - Provider: [...] documented as of this encounter Care Teams Senior Interaction Designer Relationship Specialty Start Date End Date Enedina Mcguire NP [address] [place] [address] PCP - General Internal Medicine 10/05/24 documented as of this encounter
--- OUTSIDE RECORDS SUMMARY | 2024-10-10 12:01 | XMS_ITS | Encounter Summary ---
Author Organization [facility] Address [address] [place] [address] Care Team Providers Care Recreation Therapy Aides Teacher Name Role Phone Enedina Mcguire NP Primary Care Provider [phone] Source Comments This information has been disclosed [...] release of HIV test results or diagnoses. [id number] Reason for Visit * Auth/Cert (Routine) Specialty Diagnoses / Procedures Referred By Shane hernadez Referred To Contact General Internal Medicine Diagnoses [facility] [address] [place] [address] Phone: tel: Referral ID Status Reason Start Date Expiration Date Visits Re quested Visits Authorized [id number] 1 1 Encounter Details Date Type Department Care Team (Late st Contact Info) Description 10/10/2024 12:01 PM EDT Anesthesia Event [facility] ENDOSCOPY [address] [place] [address] Cady Bhat MD [address] [place] [address] Bob Leggett MD [address] [place] [facility] [address] [place] [address] Anesthesia Record Procedure Summary Procedure [...] Recorded In the past 12 months has [employer], [employer], or [employer] threatened to shut off services in your [...] in the past 12 m [facility], were you homeless or living [...] Bhat MD - 10/10/2024 10:15 AM EDT [facility] DEPARTMENT OF ANESTHESIOLOGY PRE-PROCEDURAL EVALUATION [...] Strain: Low Risk (07/09/2024) Received from [facility] Overall Financial Resource Strain (CARDIA) Difficulty of [...] No Physical Activity: Unknown (07/14/2024) Received from [facility] Exercise Vital Sign Days of Exercise per Week: Patient unable to answer Minutes of Exercise per Session: Not on file Stress: Patient Unable To Answer (07/14/2024) Received from [facility] [place]ian [place] of Occupational Health - Occupational Stress Questionnaire Feeling of Stress : Patient unable to answer Social Connections: Patient Unable To Answer (07/14/2024) Received from [facility] Social Connection and Isolation Panel [NHANES] Frequency of Communication with Friends and Family: Patient unable to answer Frequency of Social Gatherings with Friends and Family: Patient unable to answer Attends Tenriism Services: Patient unable to answer Active Member [...] in detail. Questions answered. Plan discussed with FARM WORKER. [1] Allergies Allergen Reactions Adhesive Itching and [...] 0659 10/10/24 07 - 10/11/24 0659 Shift 3539-1159 2152-6567 6625-8994 24 Hour Total 0241-8967 8658-5610 0930-9933 24 Hour Total INTAKE P.O. [address] 210 [...] documented as of this encounter Care Teams Recreation Therapy Aides Teacher Relationship Specialty [place] [address] [place], [place] [phone] PCP - General Internal Medicine 10/05/24 documented as of this encounter
--- OUTSIDE RECORDS SUMMARY | 2024-10-14 08:42 | XMS_ITS | Encounter Summary ---
Author Organization [facility] Address [facility] [place] [address] Care Team Providers Care Irrigation Technician Name Role Phone Enedina Mcguire NP Primary Care Provider [phone] Source Comments This information has been disclosed [...] release of HIV test results or diagnoses. ZRR0217.24 Health Reason for Visit * Auth/Cert (Routine) Specialty Diagnoses / Procedures Referred By Shane hernadez Referred To Contact General Internal Medicine Diagnoses AMS [facility] [address] [place] [address] Phone: tel: Referral ID Status Reason Start Date Expiration Date Visits Re quested Visits Authorized [id number] 1 1 Encounter Details Date Type Department Care Team (Late st Contact Info) Description 10/14/2024 8:42 AM EDT - 10/14/2024 9:27 AM EDT Surgery [facility] Cardiac Radiology Receptionist [address] [place] [address] Irving Matta MD [address] [facility] [place] [address] Left Heart Cath Surgery Details Date/Time Status Location OR Service Patient Class Case Class Case Type Trauma Case? 10/14/2024 8:42 AM Posted CARDIAC CATH LABS CATH 02 Cath Inpatient Panel 1 Procedure LRB Anes Op Region Wound Class Comments Left Heart Cath N/A Moderate Sedation Surgeon Surgeon Role Service Panel Irving Matta MD Primary Cath 1 documented in this encounter Social History [...] the past 12 months has th e Rain[place], gas, oil, or water [employer] threatened to shut off services in your [...] were you homeless or living in a usp (including now)? No 10/06/2024 Yearly Questionnaire Answer [...] Sign Reading Time Taken Comments Blood Pressure 126/57 10/14/2024 9:00 AM EDT Pulse 96 10/14/2024 9:00 AM EDT Temperature 36.5 C (97.7 F) 10/14/2024 9:00 AM EDT Respiratory Rate 20 10/14/2024 9:00 AM EDT Oxygen Saturation 100% 10/14/2024 9:00 AM EDT Inhaled Oxygen Concentration 100% 10/14/2024 9 :00 AM EDT Weight 119.5 kg (263 lb 8 oz) 10/10/2024 6:54 A M EDT Height - - Body Mass Index [...] Kandy Fuentes - 10/17/2024 10:29 AM EDT [facility] Care Management Discharge Summary Patient name: [...] Home post discharge: Not Applicable Kandy BAE [facility] [phone] * William Blount MD - 10/17/2024 8:50 AM EDT [facility] Inpatient Discharge Summary Patient: Julien Gilbert Age: 39 y.o. CSN: [id number] Date of Admission: 10/05/2024 Date of Discharge: [...] Case IDs Date Procedure Surgeon Location Status [id number] 10/10/24 EGD Lino Soto MD ENDOSCOPY Comp [id number] 10/14/24 Left Heart Cath Irving Matta MD [...] at 10/08/2024 1:12 PM EDT US Duplex Con-Ice-Msmorkl Comp Final Result IMPRESSION: ABDOMEN 1. Cirrhotic [...] 90 tablet Refills: 0 naloxone 4 mg/actuation [place] Commonly known as: NARCAN Apply 1 spray [...] Your Medications These medications were sent to [facility] [address] Hours: Sunday - Sunday: 8:00AM - 6:00PM FLUoxetine 20 MG capsule lactulose 10 gram/15 mL solution loratadine 10 mg tablet methocarbamoL 500 MG tablet midodrine 10 MG tablet naloxone 4 mg/actuation [place] oxyCODONE 5 MG immediate release tablet Discharge [...] Select Supplement: Boost-1 kcal/ml supplement ([facility] only) As listed above, low sodium [...] Will need follow up with nephrology around 6/11 when plan will be made to list [...] AM EDT 10/17/2024 naloxone (NARCAN) 4 mg/actuation [place] Apply 1 spray in one nostril if [...] Hughes MD - 10/17/2024 10:23 AM EDT [facility] HEPATOLOGY PROGRESS NOTE Name: Julien Gilbert CSN: [id number] Consulted by: Chelsy Lerner MD Reason for [...] Yes Past Week naloxone (NARCAN) 4 mg/actuation [place] Apply 1 spray in one nostril if [...] nucleated cells, <2000 RBCs 10% Polynuclear, 90% [place] nuc. There were initial reports of gram [...] of chemical dependency treatment as outpatient. - [facility] with no obstructive coronary disease - Psych eval for PTSD With recommendation of sertraline - Given his renal dysfunction, will plan to list for [facility] when he qualifies on 10/22/2024. Labs next week - Plan for d/c today Bobby Sidhu MD Transplant Food Service Order Clerk Please see the body of the resident, [...] remains <30 until October 22. Waiting for [facility] today. ASSESSMENT NADIYA on CKD, [...] Staff. Jeremiah Gamino PGY4 Nephrology. Pager no. [phone] Chief Complaint No chief complaint on file. [...] ([facility]), and Thyroid disease. he has a past [...] at 10/08/2024 1:12 PM EDT US Duplex Jee-Igt-Plvbbzo Comp Final Result IMPRESSION: ABDOMEN 1. Cirrhotic [...] head imaging has been performed at [facility]. -CT Head w/o contrast -Imaging showed [...] Select Supplement: Boost-1 kcal/ml supplement ([facility] only) Code Status: Full Code Signed: WILLIAM BLOUNT MD 10/16/2024, 2:16 PM Cosigned by Chelsy Lerner MD at 10/16/2024 5:38 PM EDT Associated attestation - Chelsy Lerner MD - 10/16/2024 5:38 PM EDT [facility] Medicine Attending Supervision Note Julien Gilbert [...] another specialty or practice, other licensed professional (PT/OT/BIAS CUTTING MACHINE OPERATOR VERTICAL/RT), or a non-medical community professional: Hepatology, Interventional [...] due to positioning during LHC on 10/14. [place] the worst in CVR, but has improved [...] nucleated cells, <2000 RBCs 10% Polynuclear, 90% Charlotte nuc. There were initial reports of gram [...] Based on CBW of 119.5 kg Kcals/day: 8459-6598 (18-21 kcals/kg) Protein g/day: 119-143 (1-1.2 g/kg) [...] Kumar RD, LD Clinical Dietitian Contact via [employer] * Jerad Hughes MD - 10/16/2024 11:03 AM EDT [facility] HEPATOLOGY PROGRESS NOTE Name: Julien Gilbert CSN: [id number] Consulted by: Chelsy Lerner MD Reason for [...] nucleated cells, <2000 RBCs 10% Polynuclear, 90% [place] nuc. There were initial reports of gram [...] of chemical dependency treatment as outpatient. - [facility] with no obstructive coronary disease - Psych eval for PTSD With recommendation of sertraline - Given his renal dysfunction, will plan to list for [facility] when he qualifies on 10/22/2024. - Will follow Bobby Sidhu MD Transplant Food Service Order Clerk Please see the body of the resident, [...] remains <30 until October 22. Waiting for [facility] today. ASSESSMENT NADIYA on CKD, [...] COMMENT on 10/08/2024 Iron%- Iron replete PLAN -[facility] yesterday- patient remains at risk of contrast related injury on top of exisiting NADIYA for 24-48 hrs after contrast load. -He is volume overloaded -patient needs to follow up closely with nephrology after discharge Thank you for allowing us to participate in this patient's care. Discussed with Consult Staff. Jeremiah Gamino PGY4 Nephrology. Pager no. [phone] Chief Complaint No chief complaint on file. [...] at 10/08/2024 1:12 PM EDT US Duplex Rbr-Bbn-Svxyveo Comp Final Result IMPRESSION: ABDOMEN 1. Cirrhotic [...] not tolerate Stress ECHO on 10/09 - [facility] today -Per GI recs, started [...] head imaging has been performed at [facility]. -CT Head w/o contrast -Imaging showed [...] Select Supplement: Boost-1 kcal/ml supplement ([facility] only) Code Status: Full Code Signed: [...] another specialty or practice, other licensed professional (PT/OT/BIAS CUTTING MACHINE OPERATOR VERTICAL/RT), or a non-medical community professional: Hepatology, Interventional [...] due to positioning during LHC on 10/14. [place] the worst in CVR, but has improved [...] Hughes MD - 10/15/2024 10:15 AM EDT [facility] HEPATOLOGY PROGRESS NOTE Name: Julien Gilbert CSN: [id number] Consulted by: Chelsy Lerner MD Reason for [...] nucleated cells, <2000 RBCs 10% Polynuclear, 90% [place] nuc. There were initial reports of gram [...] of chemical dependency treatment as outpatient. - [facility] yesterday with no obstructive coronary disease - Psych eval for PTSD and medical management - Given his renal dysfunction, will plan to list for [facility] when he qualifies on 10/22/2024. - Will follow Bobby Sidhu MD Transplant Food Service Order Clerk Please see the body of the resident, [...] remains <30 until October 22. Waiting for [facility] today. ASSESSMENT NADIYA on CKD, last discharge creatinine 2.4 Baseline Creatinine 1.2-1.3, HRS- NADIYA as no response to holding lasix and albumin UA bland Urine lytes <10/< 15/ 50 Holding lasix give [facility] today Renal Function: Recent Labs [...] Staff. Jeremiah Gamino PGY4 Nephrology. Pager no. [phone] Chief Complaint No chief complaint on file. [...] at 10/08/2024 1:12 PM EDT US Duplex Gec-Nof-Nbqjijc Comp Final Result IMPRESSION: ABDOMEN 1. Cirrhotic [...] not tolerate Stress ECHO on 10/09 - [facility] today -Per GI recs, started [...] head imaging has been performed at [facility]. -CT Head w/o contrast -Imaging showed [...] never required dialysis. Patient is going for [facility] today and will receive contrast, [...] Select Supplement: Boost-1 kcal/ml supplement ([facility] only) Code Status: Full Code Signed: [...] another specialty or practice, other licensed professional (PT/OT/BIAS CUTTING MACHINE OPERATOR VERTICAL/RT), or a non-medical community professional: Hepatology, Interventional [...] diagnostics or treatments Assessment & Plan Julien Gilbetr is a 39 y.o. male on hospital [...] Hughes MD - 10/14/2024 7:42 AM EDT [facility] HEPATOLOGY PROGRESS NOTE Name: Julien Gilbert CSN: [id number] Consulted by: Chelsy Lerner MD Reason for Consult: Decompensated Cirrhosis History of Present Illness: Julien Gilbert is a 39 y.o. 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 Interval History -Patient is alert and oriented today - Renal function is unchanged today - C was pushed yesterday, planned for today - [...] nucleated cells, <2000 RBCs 10% Polynuclear, 90% [place] nuc. There were initial reports of gram [...] eval ongoing. Transplant work up ongoing - [facility] today - Transplant nephrology following [...] - Will follow Bobby Sidhu MD Transplant Food Service Order Clerk Please see the body of the resident, [...] Staff. Jeremiah Gamino PGY4 Nephrology. Pager no. [phone] Chief Complaint No chief complaint on file. [...] Hughes MD - 10/13/2024 12:33 PM EDT [facility] HEPATOLOGY PROGRESS NOTE Name: Julien Gilbert CSN: [id number] Consulted by: Fouzia Rene MD Reason for [...] nucleated cells, <2000 RBCs 10% Polynuclear, 90% [place] nuc. There were initial reports of gram [...] eval ongoing. Transplant work up ongoing - [facility] today - Transplant nephrology following [...] - Will follow Bobby Sidhu MD Transplant Food Service Order Clerk Please see the body of the resident, fellow, and my note for supportive documentation related to the level of service for this complex medical patient. I have reviewed all prior notes. I have reviewed interval / recent lab work including: CBC, renal, hepatic, INR, viral studies, and all other labsfor chronic liver disease relating to their medical [...] no psychomotor abnormalities Cognition: short term and shelter memory intact Attitude: cooperative Affect: full range [...] Select Supplement: Boost-1 kcal/ml supplement ([facility] only) Pertinent Information: Julien Gilbert is [...] kg) Body mass index is 32.07 kg/m??. Harrell Body Weight: 202 lbs (91.8 kg) +/- 10% Weight History: Wt Readings from Last 10 Encounters: 10/10/24 (!) 263 lb 8 oz (119.5 kg) 09/05/24 (!) 262 lb 9.6 oz (119.1 kg) 09/02/24 (!) 258 lb (117 kg) 08/17/24 (!) 242 lb 11.2 oz (110.1 kg) 07/28/24 (!) 245 lb (111.1 kg) Estimated Nutrition Needs: Based on CBW of 119.5 kg Kcals/day: 3814-2001 (18-21 kcals/kg) Protein g/day: 119-143 (1-1-2 g/kg) [...] Dietitian - Solid Organ Transplant Contact via [employer] Chat * Eileen Schroeder MD, PhD - 10/13/2024 8:19 AM EDT Department of Internal Medicine Daily Progress Note Chief Complaint / Reason for Follow-Up Julien Gilbert is a 39 y.o. male on hospital day 8. The principal reason for today's follow up visit is Acute kidney injury superimposed on CKD ([facility]). NAEON Pt felt well this AM. A&O [...] at 10/08/2024 1:12 PM EDT US Duplex Dfc-Ofr-Qtxqcia Comp Final Result IMPRESSION: ABDOMEN 1. Cirrhotic [...] head imaging has been performed at [facility]. -CT Head w/o contrast -Imaging showed [...] Select Supplement: Boost-1 kcal/ml supplement ([facility] only) Code Status: Full Code Signed: [...] I reviewed the documentation by the medical endless steamer tender and agree as documented. Any additions or [...] was non-diagnostic due to hypotension. Plan for [facility] today, but now moved to [...] another specialty or practice, other licensed professional (PT/OT/BIAS CUTTING MACHINE OPERATOR VERTICAL/RT), or a non-medical community professional: Nephrology, Hepatology [...] at 10/08/2024 1:12 PM EDT US Duplex Xua-Eku-Lnnqnat Comp Final Result IMPRESSION: ABDOMEN 1. Cirrhotic [...] head imaging has been performed at [facility]. -CT Head w/o contrast -Imaging showed [...] Select Supplement: Boost-1 kcal/ml supplement ([facility] only) Code Status: Full Code Signed: [...] I reviewed the documentation by the medical endless steamer tender and agree as documented. Any additions or [...] CKD ([facility]) Active Problems: NADIYA (acute kidney injury) on CKD ([facility]): Hepatorenal syndrome. Appreciate nephrology consult. S/p albumin X3. baseline creatinine presumed to be around 2.5. Creatinine improved from its peak and may be now fluctuating around a new baseline. We will continue to monitor. Spontaneous Bacterial Peritonitis ([facility]): He remains afebrile and vital signs have been stable. Received 4 days of vancomycin, Ceftriaxone x 5d. - Restart Cipro prophylaxis Anemia: Multiple contributors. S/p 1 unit PRBC. Hemoglobin responded appropriately and remained stable. Will continue to monitor. Metabolic encephalopathy: Resolved. Likely related to combination of hepatic, metabolic, and possibly infectious insults. - Continue home lactulose and rifaximin Decompensated cirrhosis ([facility]): Appreciate [...] another specialty or practice, other licensed professional (PT/OT/BIAS CUTTING MACHINE OPERATOR VERTICAL/RT), or a non-medical community professional: Nephrology, Hepatology [...] tid. cardiac workup pre txp. pLan for [facility] Sunday Liver transplant workup per [...] concern for hepatorenal syndrome.` Patient came from [facility], paracentesis was performed yesterday on [...] 706.9 (H) 10/08/2024 No results found for: [id number] , FOLATE Lab Results Component Value Date [...] CRUR No results found for: MICROALBUR , [id number] In addition to the above an extensive [...] 4.6 10/12/2024 Lab Results Component Value Date MDUI41F 7.1 (L) 10/08/2024 PLAN Monitor renal panel [...] AM Colten Huertas MD, KISHOR LIN, CATHYF block engraver Div. of Nephrology [facility] E-mail: [email or web address] This note was completely edited, written [...] Rene MD Interval hx No issues. Pending [facility]. Assessment: Renal Function: Cr: 2.77 [...] concern for hepatorenal syndrome.` Patient came from [facility], paracentesis was performed yesterday on [...] 706.9 (H) 10/08/2024 No results found for: [id number] , FOLATE Lab Results Component Value Date [...] CRUR No results found for: MICROALBUR , [id number] In addition to the above an extensive [...] 3.5 10/11/2024 Lab Results Component Value Date ZAMJ33V 7.1 (L) 10/08/2024 PLAN Monitor renal panel No indication for dialysis Pt seen by TxP neph for SLK assessment -not a candidate for kidney transplant yet Patient is being worked up for liver transplant Will continue to monitor renal panel closely Left heart cath planned for [place] Javeir Patient is aware about implications of contrast [...] AM Colten Huertas MD, KISHOR LIN FNKF block engraver Div. of Nephrology [facility] E-mail: [email or web address] This note was completely edited, written [...] at 10/08/2024 1:12 PM EDT US Duplex Rxj-Gva-Zssoblz Comp Final Result IMPRESSION: ABDOMEN 1. Cirrhotic [...] from outside facility. Will engage with them daily([phone]. Ask to speak to a tech) about [...] head imaging has been performed at [facility]. -CT Head w/o contrast -Imaging showed [...] Select Supplement: Boost-1 kcal/ml supplement ([facility] only) Code Status: Full Code Signed: [...] I reviewed the documentation by the medical endless steamer tender and agree as documented. Any additions or [...] another specialty or practice, other licensed professional (PT/OT/BIAS CUTTING MACHINE OPERATOR VERTICAL/RT), or a non-medical community professional: Nephrology, Hepatology, [...] urine output No Indication for WEB CONTENT MANAGER 3. Not a candidate for terlipressin [...] Ignacio Queen MD Renal Fellow Pager # [phone] Chief Complaint No chief complaint on file. [...] concern for hepatorenal syndrome.` Patient came from [facility], paracentesis was performed yesterday on [...] PHOS -- < > 3.5 3.4 3.3 CCJB55H 7.1* -- -- -- -- < > = values in this interval not displayed. Lab Results Component Value Date IRON 81 10/08/2024 TIBC SEE COMMENT 10/08/2024 FERRITIN 706.9 (H) 10/08/2024 No results found for: [id number] , FOLATE Lab Results Component Value Date COLORU Yellow 10/06/2024 CLARITYU Clear 10/06/2024 PROTEINUA Negative 10/06/2024 PHUR 6.0 10/06/2024 LABSPEC 1.014 10/06/2024 GLUCOSEU Negative 10/06/2024 BLOODU Negative 10/06/2024 LEUKOCYTESUR Negative 10/06/2024 NITRITE Negative 10/06/2024 BILIRUBINUR Negative 10/06/2024 UROBILINOGEN <2.0 10/06/2024 RBCUA 1 09/03/2024 WBCUA 1 09/03/2024 BACTERIA Occasional (A) 09/03/2024 No results for input(s): NAUR , KUR , RICHIE in the last 72 hours. Invalid input(s): CO2UR , CRUR No results found for: MICROALBUR , [id number] In addition to the above an extensive [...] 3.3 10/10/2024 Lab Results Component Value Date VEJY44E 7.1 (L) 10/08/2024 PLAN Continue IV albumin [...] AM Colten Huertas MD, DELIA, KISHOR, FNKF block engraver Div. of Nephrology [facility] E-mail: [email or web address] This note was completely edited, written [...] pt while pt is at [facility]. * Jodi Ortiz PharmD - 10/10/2024 10:27 AM EDT Clinical Pharmacy Service: Vancomycin Consult Progress Note Patient has been transitioned off of vancomycin therapy per team notes and orders. Pharmacy will sign-off at this time, please do not hesitate to consult again as needs arise. Thank you for involving pharmacy in the care of this patient. Jodi Ortiz PharmD Clinical Referral Nurse, Internal Medicine Preferred contact: [employer] Clinical Exknauo-Nh-Bwkn Pager: [phone] October 10, 2024 10:27 AM Laboratory Data [...] 10/07/2024 10:50 PM Giardia Cryptosporidium Antigens Final [id number] 10/07/2024 10:50 PM Ova and Parasite Comprehensive w/ Giardia/Crypto Final [id number] Feces 10/06/2024 1:04 AM #2 Blood culture-Peripheral site 2 Preliminary [id number] Peripheral 10/06/2024 1:04 AM #1 Blood culture-Peripheral site 1 Preliminary [id number] Peripheral Pharmacokinetics Lab Results (Last 7 days) Today 0523 Yesterday 10/08 0536 Vanc Rdm 16.4 11.0 16.0 * Gerri Peterson MD - 10/10/2024 10:09 AM EDT [facility] HEPATOLOGY PROGRESS NOTE Name: Julien Gilbert CSN: [id number] Consulted by: Fouzia Rene MD Reason for [...] nucleated cells, <2000 RBCs 10% Polynuclear, 90% [place] nuc. Per OSH reports, ascitic fluid cultures [...] to achieving target HR. -cardiology consult for [facility] on Sunday - Transplant nephrology [...] from the original note were not included. [facility] Clinical Pharmacy Service: Vancomycin Monitoring Consult [...] in sodium chloride 0.9 % 250 mL Jorc8Fia (Completed) 1,500 mg Once 10/09/2024 10/09/2024 Admin Instructions: Contact pharmacy if there is a question/concern of whether vancomycin should begiven based on serum drug levels. Use Sdma3Sfm Adapter - Mix Thoroughly Before Administration Route: Intravenous vancomycin (VANCOCIN) 1,500 mg in sodium chloride 0.9 % 250 mL Jocg6Zuu 1,500 mg Once 10/10/2024 10/11/2024 Admin Instructions: Contact pharmacy if there is a question/concern of whether vancomycin should begiven based on serum drug levels. Use Pcow6Tuj Adapter - Mix Thoroughly Before Administration Route: [...] in sodium chloride 0.9 % 250 mL Brbj8Lci 1,500 mg 166.7 mL/hr 10/08/24 1259 New Bag vancomycin (VANCOCIN) 1,000 mg in sodium chloride 0.9 % 250 mL Cbst5Isj 1,000 mg 250 mL/hr --Objective Data-- Vitals: [...] 53 53 54 Creatinine 2.85 2.89 3.04 Harrell body weight: 86.8 kg (191 lb 5.7 oz) Adjusted ideal body weight: 99.9 kg (220 lb 3.5 oz) Estimated CrCl: ~35-45 mL/min --Cultures-- Microbiology Results Date and Time Order Name Sensitivity Status Organisms Specimen ID Source 10/07/2024 10:50 PM Giardia Cryptosporidium Antigens Final [id number] 10/07/2024 10:50 PM Ova and Parasite Comprehensive w/ Giardia/Crypto Final [id number] Feces 10/06/2024 1:04 AM #2 Blood culture-Peripheral site 2 Preliminary [id number] Peripheral 10/06/2024 1:04 AM #1 Blood culture-Peripheral site 1 Preliminary [id number] Peripheral --Vancomycin Concentrations-- Lab Results (Last 7 [...] for the consult. Jodi Ortiz PharmD Clinical Referral Nurse, Internal Medicine Preferred contact: [employer] Clinical Tzqnzuw-Jx-Pxzx Pager: [phone] October 10, 2024 9:13 AM * Eileen Schroeder MD, PhD - 10/10/2024 8:17 AM EDT Department of Internal Medicine Daily Progress Note Chief Complaint / Reason for Follow-Up Julien Gilbert is a 39 y.o. male on hospital day 5. The principal reason for today's follow up visit is Acute kidney injury superimposed on CKD ([facility]). [place]ORTNEYON Pt was very conversational today. A&O x [...] at 10/08/2024 1:12 PM EDT US Duplex Ezy-Adk-Vssmdsb Comp Final Result IMPRESSION: ABDOMEN 1. Cirrhotic [...] from outside facility. Will engage with them daily([phone]. Ask to speak to a tech) about [...] head imaging has been performed at [facility]. -CT Head w/o contrast -Imaging showed [...] Select Supplement: Boost-1 kcal/ml supplement ([facility] only) Code Status: Full Code Signed: [...] I reviewed the documentation by the medical endless steamer tender and agree as documented. Any additions or [...] CKD ([facility]) Active Problems: Spontaneous Bacterial Peritonitis ([facility] [...] and rifaximin Decompensated cirrhosis ([facility]): Appreciate [...] IR. NADIYA (acute kidney injury) on CKD ([facility]): Appreciate nephrology consult. Likely due to hepatorenal [...] another specialty or practice, other licensed professional (PT/OT/BIAS CUTTING MACHINE OPERATOR VERTICAL/RT), or a non-medical community professional: Nephrology, Hepatology, [...] urine output No Indication for WEB CONTENT MANAGER Not a candidate for terlipressin per liver due to HE, liver and kidney failure, on midodrine tid. Considering para today, cardiac workup pre txp Liver transplant workup per GI/ Primary team, considering for SLK, seen by renal transplant team Thank you for allowing us to participate in this patient's care. Discussed with Consult Staff. Ignacio Queen MD Renal Fellow Pager # [phone] Chief Complaint No chief complaint on file. [...] concern for hepatorenal syndrome.` [facility], paracentesis was performed yesterday on [...] 9.0 9.3 PHOS -- 3.5 3.5 3.4 KVOQ88C 7.1* -- -- -- Lab Results Component Value Date IRON 81 10/08/2024 TIBC SEE COMMENT 10/08/2024 FERRITIN 706.9 (H) 10/08/2024 No results found for: ZYQDQCJG09 , FOLATE Lab Results Component Value Date [...] CRUR No results found for: MICROALBUR , PTOC30ZFM In addition to the above an extensive [...] 3.4 10/09/2024 Lab Results Component Value Date XZEG70G 7.1 (L) 10/08/2024 PLAN Continue IV albumin [...] PM Colten Huertas MD, KISHOR LIN, CATHYF block engraver Div. of Nephrology [facility] E-mail: [email or web address] This note was completely edited, written [...] Peterson MD - 10/09/2024 1:07 PM EDT [facility] HEPATOLOGY PROGRESS NOTE Name: Julien Gilbert CSN: [id number] Consulted by: Fouzia Rene MD Reason for [...] nucleated cells, <2000 RBCs 10% Polynuclear, 90% Charlotte nuc. Fluid cultures reportedly grew gram + [...] from the original note were not included. [facility] Clinical Pharmacy Service: Vancomycin Monitoring Consult [...] in sodium chloride 0.9 % 250 mL Jhvw4Wab (Completed) 1,000 mg Once 10/08/2024 10/08/2024 Admin Instructions: Contact pharmacy if there is a question/concern of whether vancomycin should begiven based on serum drug levels. Use Jtpr9Dut Adapter - Mix Thoroughly Before Administration Route: Intravenous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 Patient educated on: Family educated on;role of BIAS CUTTING MACHINE OPERATOR VERTICAL, current POC, and discharge recommendations forSLP therapy Patient response: Patient verbalized understanding;Family demonstrated understanding End of Session: Patient was left in bed with call light within reach and all needs met. Gladys Banda M.A, CCC-BIAS CUTTING MACHINE OPERATOR VERTICAL Speech Language Pathologist--Rehab Services [facility] MBSImP Certified Clinician Time Start Time: 1055 Stop Time: 1109 Time Calculation (min): 14 min Charges $Eval Speech Sound Prd w/Lng Comp & Expr: 1 Procedure Patient Class Inpatient [1] Patient Active Problem List Diagnosis Decompensated cirrhosis ([facility]) NADIYA (acute kidney injury) ([facility] Alcohol use disorder Metabolic encephalopathy Hypertension Other hyperlipidemia Thrombocytopenia ([facility]) Renal mass, left Abdominal pain Hypokalemia CKD (chronic kidney disease) stage 4, GFR 15-29 ml/min ([facility]) Metabolic acidosis with normal anion gap [...] Function: Cr: 3.40 Bun: 62 on 10/06/2024 NAIDYA on CKD, last discharge creatinine 2.4 Likely [...] to diarrhea No Indication for WEB CONTENT MANAGER Liver transplant workup per GI/ Primary team Thank you for allowing us to participate in this patient's care. Discussed with Consult Staff. Ignacio Queen MD Renal Fellow Pager # [phone] Chief Complaint No chief complaint on file. [...] concern for hepatorenal syndrome.` Patient came from [facility], paracentesis was performed yesterday on [...] TIBC , FERRITIN No results found for: [id number] , FOLATE Lab Results Component Value Date [...] CRUR No results found for: MICROALBUR , [id number] In addition to the above an extensive [...] 5.3 (H) 10/06/2024 No results found for: [id number] PLAN Patient seen labs reviewed Unclear baseline serum creat Recent episode of acute kidney injury requiring hospitalization Now has [id number] episode of NADIYA Underwent paracentesis 3 days [...] team Colten Huertas MD, KISHOR LIN FNKF block engraver Div. of Nephrology [facility] E-mail: [email or web address] * Jerad Hughes MD - 10/06/2024 9:28 AM EDTAssociated Order(s): IP CONSULT TO LIVER [facility] HEPATOLOGY CONSULT NOTE Name: Julien Gilbert CSN: [id number] Consulted by: Angie Blanchard MD Reason for Consult: Decompensated Cirrhosis History of Present Illness: Julien Gilbert is a 39 y.o. with history of decompensated EtOH cirrhosis (complicated by EV, HRS, ascites, HE), HTN, and CKD. Patient admitted as transfer from [facility] ED with confusion and lethargy. Diagnostic paracentesis [...] Patient was recently referred to [facility] for liver transplant evaluation. Patient was evaluated by transplant nursing home social worker on 09/25/2024 and it was [...] returned from lift slab operator status post [facility]. Bedside report received from lift [...] admitted into [facility] from [facility] with AMS. Hosiptalist paged to the bedside [...] Patient will remain free of falls Goal: [place] Precautions Outcome: Progressing Problem: Daily Care Goal: Daily care needs are met Description: Assess and monitor ability to perform self care and identify potential discharge needs. Outcome: Progressing * Care Coordination - Kandy Fuentes - 10/16/2024 11:33 AM EDT [facility] Case Management/Social Work Department Progress Note Patient Information Patient Name: Julien Gilbert Hospital day: 11 Inpatient/Observation: Inpatient Level of Care: kinsey Admit date: 10/05/2024 Admission diagnosis: AMS PMH: has a past medical history of Alcoholic cirrhosis of liver (CMS-HCC), Esophageal varices (CMS-HCC), Hepatorenal syndrome ([facility]), Hypertension, Other hyperlipidemia (07/26/2024), Renal cell carcinoma (CMS-HCC), Thrombocytopenia ([facility]), and Thyroid disease. PCP: Enedina Mcguire NP Home Pharmacy: [facility] [address] [facility] [place] [address] [address] [facility] [address] [facility] [id number] Medical Insurance Coverage: Payor: [employer] / Plan: [facility] / Product Type: *No Producttype* / [...] Patient will remain free of falls Goal: [place] Precautions Outcome: Progressing Problem: Daily Care [...] Patient will remain free of falls Goal: [place] Precautions Outcome: Progressing Problem: Daily Care [...] Kandy Fuentes - 10/15/2024 2:26 PM EDT [facility] Case Management/Social Work Department Progress Note [...] disease. PCP: Enedina Mcguire NP Home Pharmacy: [facility] [address] [place] [address] [facility] [address] [facility] [id number] Medical Insurance Coverage: Payor: [facility] / Plan: [facility] / Product Type: *No Producttype* / [...] Patient will remain free of falls Goal: [place] Precautions Outcome: Progressing Problem: Daily Care [...] Kandy Fuentes - 10/14/2024 11:10 AM EDT [facility] Case Management/Social Work Department Progress Note [...] disease. PCP: Enedina Mcguire NP Home Pharmacy: [facility] [address] [place] [address] [facility] [address] [facility] [address] Medical Insurance Coverage: Payor: [facility] / Plan: [facility] / Product Type: *No Producttype* / [...] Kandy Fuentes - 10/13/2024 11:53 AM EDT [facility] Case Management/Social Work Department Progress Note [...] disease. PCP: Enedina Mcguire NP Home Pharmacy: [facility] [address] [place] [address] [place] [address] [facility] [address] [facility] [address] Medical Insurance Coverage: Payor: [facility] / Plan: [facility] / Product Type: *No Producttype* / [...] Kandy Fuentes - 10/10/2024 12:00 PM EDT [facility] Case Management/Social Work Department Progress Note [...] disease. PCP: Enedina Mcguire NP Home Pharmacy: [facility] [address] [address] [facility] [address] [facility] [phone] Medical Insurance Coverage: Payor: [facility] / Plan: [facility] / Product Type: *No Producttype* / [...] Patient will remain free of falls Goal: [place] Precautions Outcome: Progressing Problem: Daily Care [...] Patient will remain free of falls Goal: [place] Precautions Outcome: Progressing Problem: Daily Care [...] Kandy Fuentes - 10/09/2024 12:05 PM EDT [facility] Case Management/Social Work Department Progress Note [...] disease. PCP: Enedina Mcguire NP Home Pharmacy: [facility] - [place], [place] - [address] [address] [facility] [address] [facility] [id number] Medical Insurance Coverage: Payor: [facility] / Plan: [facility] / Product Type: *No Producttype* / [...] Kandy Fuentes - 10/08/2024 3:41 PM EDT [facility] Case Management/Social Work Department Progress Note [...] disease. PCP: Enedina Mcguire NP Home Pharmacy: [facility] [address] [place] [id number] [facility] [address] [facility] [address] Medical Insurance Coverage: Payor: [facility] / Plan: [facility] / Product Type: *No Producttype* / [...] Kandy Fuentes - 10/07/2024 3:22 PM EDT [facility] Case Management/Social Work Department Progress Note Patient Information Patient Name: Julien Gilbert Hospital day: 2 Inpatient/Observation: Inpatient Level of Care: blue Admit date: 10/05/2024 Admission diagnosis: AMS PMH: has a past medical history of Alcoholic cirrhosis of liver ([facility]), Alcoholic hepatitis, Esophageal varices ([facility]), Hepatorenal syndrome ([facility]), Hypertension, Other hyperlipidemia (07/26/2024), Renal cell carcinoma ([facility]), Thrombocytopenia ([facility]), and Thyroid disease. PCP: Enedina Mcguire NP Home Pharmacy: [address] [address] [facility] [address] [facility] [id number] Medical Insurance Coverage: Payor: [facility] / Plan: [facility] / Product Type: *No Producttype* / [...] Patient will remain free of falls Goal: [place] Precautions Outcome: Progressing Problem: Daily Care [...] with ascites, unspecified hepatic cirrhosis type (CMS-HCC) UPPER GI ENDOSCOPY Routine 10/10/2024 11 :48 AM EDT HEPATIC FUNCTION PANEL STAT 5:23 [...] AM EDT QUANTIFERON TB2 AG Routine 10/08/2024 10 :25 AM EDT QUANTIFERON TB1 AG Routine 10/08/2024 10 :25 AM EDT QUANTIFERON NIL Routine 10/08/2024 10:25 AM EDT QUANTIFERON MITOGEN Routine 10/08/2024 1 0:25 AM EDT IRON STUDIES Routine 10/08/2024 10:25 [...] PM EDT HEPATITIS A ANTIBODY TOTAL Routine 10/07 6:38 PM EDT HEPATITIS A IGM Routine [...] IGG ANTIBODY Routine 10/07/2024 6:37 PM EDT [id number] (AAT) QUANTITATION & MUTATION Routine 10/07/2024 6:37 [...] Routine 10/07/2024 6:19 PM EDT US DUPLEX [id number] COMPLETE Routine 10/07/2024 3:48 PM EDT US [...] AM EDT HEPATITIS A ANTIBODY TOTAL Routine 10/06 4:01 AM EDT HEPATIC FUNCTION PANEL Routine [...] 10/06/2024 4:01 AM EDT UPPER RESPIRATORY VIRAL/BACTERIAL PANEL-CLINICAL PROGRAM MANAGER ONLY Routine 10/06/2024 3:12 AM EDT [...] - 146 mmol/L 10/17/2024 7:02 AM EDT [facility] Potassium 3.4(L) 3.5 - 5.3 mmol/L 10/17/2024 7:02 AM EDT [facility] Chloride 104 98 - 110 mmol/L 10/17/2024 7:02 AM EDT [facility] CO2 18(L) 21 - 33 mmol/L 10/17/2024 7:02 AM EDT [facility] Anion Gap 11 3 - 16 mmol/L 10/17/2024 7:02 AM EDT [facility] BUN 54(H) 7 - 25 mg/dL 10/17/2024 7:02 AM EDT [facility] Creatinine 2.88(H) 0.60 - 1.30 mg/dL 10/17/2024 7:02 AM EDT [facility] Glucose 127(H) 70 - 100 mg/dL 10/17/2024 7:02 AM EDT [facility] Calcium 8.2(L) 8.6 - 10.3 mg/dL 10/17/2024 7:02 AM EDT [facility] Phosphorus 4.5 2.1 - 4.7 mg/dL 10/17/2024 7:02 AM EDT [facility] Albumin 3.1(L) 3.5 - 5.7 g/dL 10/17/2024 7:02 AM EDT [facility] Osmolality, Calculated 292 278 - 305 mOsm/kg 10/17/2024 7:02 AM EDT [facility] EGFR 27 10/17/2024 7:02 AM EDT [facility] Comment:As of 2021, the estimated [...] MD, PhD LAB BLOOD ORDERABLES Final Result [facility] [address] * (ABNORMAL) Protime-INR (10/16/2024 6:31 AM EDT) Protime 22.5(H) 12.1 - 15.1 seconds 10/16/2024 8:04 AM EDT [facility] INR 1.9(H) 0.9 - 1.1 10/16/2024 8:04 AM EDT [facility] Comment: RECOMMENDED THERAPEUTIC RANGES USING INR : Stable oral anticoagulant therapy: 2.0 - 3.0 Mechanical prosthetic heart valve: 2.5 - 3.5 Recurrent acute myocardial infarction: 2.5 - 3.5 Plasma 10/16/2024 6:31 AM EDT 10/16/2024 6:56 AM EDT Eileen Schroeder MD, PhD LAB BLOOD ORDERABLES Final Result Performing Organization Address City/[facility]/ZIP Co de Phone Number [facility] [address] * (ABNORMAL) Hepatic Function Panel (10/16/2024 6:31 AM EDT) Total Bilirubin 7.6(H) 0.0 - 1.5 mg/dL 10/16/2024 7:24 AM EDT [facility] Bilirubin, Direct 3.97(H) 0.00 - 0.40 mg/dL 10/16/2024 7:24 AM EDT [facility] AST 45(H) 13 - 39 U/L 10/16/2024 7:24 AM EDT [facility] ALT 23 7 - 52 U/L 10/16/2024 7:24 AM EDT [facility] Alkaline Phosphatase 137(H) 36 - 125 U/L 10/16/2024 7:24 AM EDT [facility] Total Protein 5.1(L) 6.4 - 8.9 g/dL 10/16/2024 7:24 AM EDT [facility] Albumin 3.4(L) 3.5 - 5.7 g/dL 10/16/2024 7:24 AM EDT [facility] Bilirubin, Indirect 3.63(H) 0.00 - 1.10 mg/dL 10/16/2024 7:24 AM EDT [facility] Plasma 10/16/2024 6:31 AM EDT 10/16/2024 6:56 AM EDT us Eileen Schroeder MD, PhD LAB BLOOD ORDERABLES Final Result Performing Organization Address City/[facility]/ZIP Co de Phone Number [facility] [address] [facility] [address] * Magnesium (10/16/2024 6:31 AM EDT) Magnesium 2.1 1.5 - 2.5 mg/dL 10/16/2024 7:24 AM EDT [facility] Plasma 10/16/2024 6:31 AM EDT 10/16/2024 6:56 AM EDT us Eileen Schroeder MD, PhD LAB BLOOD ORDERABLES Final Result [facility] [address] * (ABNORMAL) Renal Function Panel w/EGFR (10/16/2024 6:31 AM EDT) Sodium 135 133 - 146 mmol/L 10/16/2024 7:24 AM EDT [facility] Potassium 3.7 3.5 - 5.3 mmol/L 10/16/2024 7:24 AM EDT [facility] Chloride 106 98 - 110 mmol/L 10/16/2024 7:24 AM EDT [facility] CO2 16(L) 21 - 33 mmol/L 10/16/2024 7:24 AM EDT [facility] Anion Gap 13 3 - 16 mmol/L 10/16/2024 7:24 AM EDT [facility] BUN 55(H) 7 - 25 mg/dL 10/16/2024 7:24 AM EDT [facility] Creatinine 3.20(H) 0.60 - 1.30 mg/dL 10/16/2024 7:24 AM EDT [facility] Glucose 121(H) 70 - 100 mg/dL 10/16/2024 7:24 AM EDT [facility] Calcium 8.5(L) 8.6 - 10.3 mg/dL 10/16/2024 7:24 AM EDT [facility] Phosphorus 4.2 2.1 - 4.7 mg/dL 10/16/2024 7:24 AM EDT [facility] Albumin 3.4(L) 3.5 - 5.7 g/dL 10/16/2024 7:24 AM EDT [facility] Osmolality, Calculated 296 278 - 305 mOsm/kg 10/16/2024 7:24 AM EDT [facility] EGFR 24 10/16/2024 7:24 AM EDT [facility] Comment:As of 2021, the estimated [...] MD, PhD LAB BLOOD ORDERABLES Final Result [facility] [address] [id number], [facility] * (ABNORMAL) CBC (10/16/2024 6:31 AM EDT) WBC 5.8 3.8 - 10.8 10E3/uL 10/16/2024 8:00 AM EDT [facility] RBC 2.16(L) 4.20 - 5.80 10E6/uL 10/16/2024 8:00 AM EDT [facility] Hemoglobin 7.7(L) 13.2 - 17.1 g/dL 10/16/2024 8:00 AM EDT [facility] Hematocrit 22.1(L) 38.5 - 50.0 % 10/16/2024 8:00 AM EDT [facility] MCV 102.3(H) 80.0 - 100.0 fL 10/16/2024 8:00 AM EDT [facility] MCH 35.7(H) 27.0 - 33.0 pg 10/16/2024 8:00 AM EDT [facility] MCHC 34.9 32.0 - 36.0 g/dL 10/16/2024 8:00 AM EDT [facility] RDW 17.7(H) 11.0 - 15.0 % 10/16/2024 8:00 AM EDT [facility] Platelets 43(L) 140 - 400 10E3/uL 10/16/2024 8:00 AM EDT [facility] Comment: Specimen checked for clots. None detected. Slide Reviewed for PLT Clumps. None Seen. Platelet Estimate Decreased 10/16/2024 8:00 AM EDT [facility] MPV 8.6 7.5 - 11.5 fL 10/16/2024 8:00 AM EDT [facility] Whole Blood 10/16/2024 6:31 AM EDT 10/16/2024 6:57 AM EDT Narrative [facility] - 10/16/2024 8:00 AM EDT Peripheral blood smear was scanned per review criteria approved by the laboratory medical appliance maker. us Eileen Schroeder MD, PhD LAB BLOOD ORDERABLES Final Result [facility] [address] * CARISA Rhythm Strip - Scan (10/15/2024 8:02 PM EDT) us Scanning [employer] SCAN DOCS - NO RESULTS Final Res ult * CARISA Rhythm Strip - Scan (10/15/2024 8:02 PM EDT) us Scanning [employer] SCAN DOCS - NO RESULTS Final Res ult * Prepare Platelets, leukoreduced, 1 Units (10/15/2024 6:16 AM EDT) [facility] Signature Product Code [id number] [facility] Unit Number [id number] [facility]LL Dispense Status Presumed Transfused_PT [facility] Blood Expiration Date [facility] Coding System [id number] [facility] Blood Bank Product us Eleazar Nguyễn MD BLOOD BANK PRODUCT ORDE LILIA Final Result Performing Organization Address [facility] Co de Phone Number [facility] * Prepare Fresh Frozen Plasma, 1 Units (10/15/2024 6:15 AM EDT) Product Code [id number] [facility] Unit Number [id number] [facility]LL Dispense Status Presumed Transfused_PT [facility] Blood Expiration Date [id number] HCLL Coding System [id number] [facility] Blood Bank Product us Eleazar Nguyễn MD BLOOD BANK PRODUCT ORDE LILIA Final Result Performing Organization Address [facility] Co de Phone Number [facility] * (ABNORMAL) Protime-INR (10/15/2024 6:08 AM EDT) Protime 21.6(H) 12.1 - 15.1 seconds 10/15/2024 6:36 AM EDT [facility] INR 1.8(H) 0.9 - 1.1 10/15/2024 6:36 AM EDT [facility] Comment: RECOMMENDED THERAPEUTIC RANGES USING INR : Stable oral anticoagulant therapy: 2.0 - 3.0 Mechanical prosthetic heart valve: 2.5 - 3.5 Recurrent acute myocardial infarction: 2.5 - 3.5 Plasma 10/15/2024 6:08 AM EDT 10/15/2024 6:17 AM EDT us Eileen Schroeder MD, PhD LAB BLOOD ORDERABLES Final Result Performing Organization Address City/[facility]/ZIP Co de Phone Number [facility] [address] * (ABNORMAL) Hepatic Function Panel (10/15/2024 6:08 AM EDT) Total Bilirubin 7.1(H) 0.0 - 1.5 mg/dL 10/15/2024 6:45 AM EDT [facility] Bilirubin, Direct 3.77(H) 0.00 - 0.40 mg/dL 10/15/2024 6:45 AM EDT [facility] AST 39 13 - 39 U/L 10/15/2024 6:45 AM EDT [facility] ALT 22 7 - 52 U/L 10/15/2024 6:45 AM EDT [facility] Alkaline Phosphatase 115 36 - 125 U/L 10/15/2024 6:45 AM EDT [facility] Total Protein 4.8(L) 6.4 - 8.9 g/dL 10/15/2024 6:45 AM EDT [facility] Albumin 3.2(L) 3.5 - 5.7 g/dL 10/15/2024 6:45 AM EDT [facility] Bilirubin, Indirect 3.33(H) 0.00 - 1.10 mg/dL 10/15/2024 6:45 AM EDT [facility] Plasma 10/15/2024 6:08 AM EDT 10/15/2024 6:17 AM EDT us Eileen Schroeder MD, PhD LAB BLOOD ORDERABLES Final Result Performing Organization Address [facility]/ZIP Co de Phone Number [facility] [address] [place] [address] * Magnesium (10/15/2024 6:08 AM EDT) Magnesium 1.8 1.5 - 2.5 mg/dL 10/15/2024 6:45 AM EDT [facility] Plasma 10/15/2024 6:08 AM EDT 10/15/2024 6:17 AM EDT Eileen Schroeder MD, PhD LAB BLOOD ORDERABLES Final Result Performing Organization Address [facility]/ZIP Co de Phone Number [facility] [address] * (ABNORMAL) Renal Function Panel w/EGFR (10/15/2024 6:08 AM EDT) Sodium 135 133 - 146 mmol/L 10/15/2024 6:45 AM EDT [facility] Potassium 3.4(L) 3.5 - 5.3 mmol/L 10/15/2024 6:45 AM EDT [facility] Chloride 107 98 - 110 mmol/L 10/15/2024 6:45 AM EDT [facility] CO2 17(L) 21 - 33 mmol/L 10/15/2024 6:45 AM EDT [facility] Anion Gap 11 3 - 16 mmol/L 10/15/2024 6:45 AM EDT [facility] BUN 55(H) 7 - 25 mg/dL 10/15/2024 6:45 AM T [facility] Creatinine 2.88(H) 0.60 - 1.30 mg/dL 10/15/2024 6:45 AM T [facility] Glucose 125(H) 70 - 100 mg/dL 10/15/2024 6:45 AM EDT [facility] Calcium 8.4(L) 8.6 - 10.3 mg/dL 10/15/2024 6:45 AM EDT [facility] Phosphorus 3.9 2.1 - 4.7 mg/dL 10/15/2024 6:45 AM EDT [facility] Albumin 3.2(L) 3.5 - 5.7 g/dL 10/15/2024 6:45 AM [facility] Osmolality, Calculated 297 278 - 305 mOsm/kg 10/15/2024 6:45 AM EDT [facility] EGFR 27 10/15/2024 6:45 AM [facility] Comment:As of 2021, the [...] MD, PhD LAB BLOOD ORDERABLES Final Result [facility] [address] [place], [place] [address] * (ABNORMAL) CBC (10/15/2024 6:08 AM EDT) WBC 4.6 3.8 - 10.8 10E3/uL 10/15/2024 6:51 AM EDT [facility] RBC 1.94(L) 4.20 - 5.80 10E6/uL 10/15/2024 6:51 AM EDT [facility] Hemoglobin 7.1(L) 13.2 - 17.1 g/dL 10/15/2024 6:51 AM EDT [facility] Hematocrit 19.6(L) 38.5 - 50.0 % 10/15/2024 6:51 AM EDT [facility] MCV 100.8(H) 80.0 - 100.0 fL 10/15/2024 6:51 AM EDT [facility] MCH 36.7(H) 27.0 - 33.0 pg 10/15/2024 6:51 AM EDT [facility] MCHC 36.4(H) 32.0 - 36.0 g/dL 10/15/2024 6:51 AM EDT [facility] RDW 17.3(H) 11.0 - 15.0 % 10/15/2024 6:51 AM EDT [facility] Platelets 34(L) 140 - 400 10E3/uL 10/15/2024 6:51 AM EDT [facility] Comment:Specimen checked for clots. None detected. MPV 8.7 7.5 - 11.5 fL 10/15/2024 6:51 AM EDT [facility] Whole Blood 10/15/2024 6:08 AM EDT 10/15/2024 6:17 AM EDT us Eileen Schroeder MD, PhD LAB BLOOD ORDERABLES Final Result Performing Organization Address [facility] Co de Phone Number [address] * PRA-HLA Ab Screen (Cytotoxic) (10/15/2024 6:08 AM EDT) Pathologist [facility] The request and specimen(s) for this test have been received and transported to the [facility] at [address] [place] [address]. The [facility] will report results directly to the client. 10/15/2024 6:42 AM EDT [facility] Comment:The request and spec imen(s) for this test have been received and transported to the [facility] [place] at [address] [place] [address]. The [facility] will report results directly to the client. Serum 10/15/2024 6:08 AM EDT 10/15/2024 6:42 AM EDT us Cosmo Pacheco MD LAB BLOOD ORDERABLES Final Resul t Performing Organization Address [facility] Co de Phone Number [facility] [address] [place] [address] * LEFT HEART CATH (10/14/2024 2:09 PM EDT) 10/14/2024 11:4 7 AM EDT Narrative [facility] - 10/14/2024 9:27 PM EDT *[facility]* Cardiac Radiology Receptionist [address] [place] [address] CATHETERIZATION LAB STUDY Patient: Julien Gilbert Age: [...] manner. 3. Right radial artery access. A [id number] Glidesheath - Slender - .021 sheath was [...] + !LV pressure s/d, ed !, 22, dP/ft=9275gx Hg/s! + + + !Aortic pressure s/d (m)!106/58 (75) ! + + + ATTESTATION: Dr. Matta was present for the entire procedure. Dr. Jay Quan was the initial author of this report. Prepared and electronically signed by Irving Matta MD [id number] Procedure Note Irving Matta MD - 10/14/2024 *[facility]* Cardiac Radiology Receptionist [address] [place] [address] CATHETERIZATION LAB STUDY Patient: Julien Gilbert Age: [...] manner. 3. Right radial artery access. A [id number] Glidesheath - Slender - .021sheath was advanced [...] complications. Contrast: Omnipaque 350 25ml (total dose). [id number] 125ml (wasted). Radiation: Fluoroscopy time: 15min. Total [...] + + !LV pressure s/d, ed !, dP/br=9537zl Hg/s! + + + !Aortic pressure s/d (m)!106/58 (75) ! + + + ATTESTATION: Dr. Matta was present for the entire procedure. Dr. Jay Quan wasthe initial author of this report. Prepared and electronically signed by Irving Matta MD [id number] [place] [id number] Final Result [facility] * Transfuse Fresh Frozen [...] ADMIN Final Result Performing Organization Address [facility]/ZIP Co de Phone Number EXTERNAL * Transfuse Platelets Transfusion Rate: Per dept routine, 1 Units (10/14/2024 12:43 PM EDT) us Eleazar Nguyễn MD NURSING TREATMENT ORDER PAL - BLOOD ADMIN Final Result EXTERNAL * Antibody Screen (10/14/2024 8:21 AM EDT) Pathologist [facility] Antibody Screen Negative 10/14/2024 9:11 AM EDT [facility] Blood 10/14/2024 8:21 AM EDT 10/14/2024 8:33 AM EDT Narrative HEALTH LAB - 10/14/2024 9:26 AM EDT Testing performed by [facility] Transfusion Service us Eleazar Nguyễn MD BLOOD BANK TEST ORDERAB LES Final Result Performing Organization Address City/[facility]/ZIP Co de Phone Number [facility] [address] [place] [address], [facility] * ABO/Rh (10/14/2024 8:21 AM EDT) ABO Grouping O 10/14/2024 8:55 AM EDT [facility] Rh Type Positive 10/14/2024 8:55 AM EDT [facility] Blood 10/14/2024 8:21 AM EDT 10/14/2024 8:33 AM EDT us Eleazar Nguyễn MD BLOOD BANK TEST ORDERAB LES Final Result Performing Organization Address [facility] Co de Phone Number [facility] [address] * (ABNORMAL) Protime-INR (10/14/2024 2:53 AM EDT) Protime 23.8(H) 12.1 - 15.1 seconds 10/14/2024 4:34 AM EDT [facility] INR 2.1(H) 0.9 - 1.1 10/14/2024 4:34 AM EDT [facility] Comment: RECOMMENDED THERAPEUTIC RANGES USING INR : Stable oral anticoagulant therapy: 2.0 - 3.0 Mechanical prosthetic heart valve: 2.5 - 3.5 Recurrent acute myocardial infarction: 2.5 - 3.5 Plasma 10/14/2024 2:53 AM EDT 10/14/2024 4:16 AM EDT us Eileen Schroeder MD, PhD LAB BLOOD ORDERABLES Final Result Performing Organization Address City/[facility] Co de Phone Number [facility] [address] [facility]. [address] * (ABNORMAL) Hepatic Function Panel (10/14/2024 2:53 AM EDT) Total Bilirubin 7.2(H) 0.0 - 1.5 mg/dL 10/14/2024 4:45 AM EDT [facility] Bilirubin, Direct 3.86(H) 0.00 - 0.40 mg/dL 10/14/2024 4:45 AM EDT [facility] AST 41(H) 13 - 39 U/L 10/14/2024 4:45 AM EDT [facility] ALT 22 7 - 52 U/L 10/14/2024 4:45 AM EDT [facility] Alkaline Phosphatase 119 36 - 125 U/L 10/14/2024 4:45 AM EDT [facility] Total Protein 4.6(L) 6.4 - 8.9 g/dL 10/14/2024 4:45 AM EDT [facility] Albumin 3.3(L) 3.5 - 5.7 g/dL 10/14/2024 4:45 AM EDT [facility] Bilirubin, Indirect 3.34(H) 0.00 - 1.10 mg/dL 10/14/2024 4:45 AM EDT [facility] Plasma 10/14/2024 2:53 AM EDT 10/14/2024 4:16 AM EDT Eileen Schroeder MD, PhD LAB BLOOD ORDERABLES Final Result Performing Organization Address City/[facility]/ZIP Co de Phone Number [facility] [address] [place] [address] * Magnesium (10/14/2024 2:53 AM EDT) Magnesium 1.9 1.5 - 2.5 mg/dL 10/14/2024 4:45 AM EDT [facility] Plasma 10/14/2024 2:53 AM EDT 10/14/2024 4:16 AM EDT Eileen Schroeder MD, PhD LAB BLOOD ORDERABLES Final Result [facility] [address] [place] [address] * (ABNORMAL) Renal Function Panel w/EGFR (10/14/2024 2:53 AM EDT) Sodium 136 133 - 146 mmol/L 10/14/2024 4:45 AM EDT [facility] Potassium 3.5 3.5 - 5.3 mmol/L 10/14/2024 4:45 AM EDT [facility] Chloride 107 98 - 110 mmol/L 10/14/2024 4:45 AM EDT [facility] CO2 16(L) 21 - 33 mmol/L 10/14/2024 4:45 AM EDT [facility] Anion Gap 13 3 - 16 mmol/L 10/14/2024 4:45 AM EDT [facility] BUN 55(H) 7 - 25 mg/dL 10/14/2024 4:45 AM EDT [facility] Creatinine 3.01(H) 0.60 - 1.30 mg/dL 10/14/2024 4:45 AM EDT [facility] Glucose 95 70 - 100 mg/dL 10/14/2024 4:45 AM EDT [facility] Calcium 8.5(L) 8.6 - 10.3 mg/dL 10/14/2024 4:45 AM EDT [facility] Phosphorus 4.4 2.1 - 4.7 mg/dL 10/14/2024 4:45 AM EDT [facility] Albumin 3.3(L) 3.5 - 5.7 g/dL 10/14/2024 4:45 AM EDT [facility] Osmolality, Calculated 297 278 - 305 mOsm/kg 10/14/2024 4:45 AM EDT [facility] EGFR 26 10/14/2024 4:45 AM EDT [facility] Comment:As of 2021, the estimated [...] MD, PhD LAB BLOOD ORDERABLES Final Result [facility] [address] * (ABNORMAL) CBC (10/14/2024 2:53 AM EDT) WBC 5.5 3.8 - 10.8 10E3/uL 10/14/2024 5:00 AM EDT [facility] RBC 2.09(L) 4.20 - 5.80 10E6/uL 10/14/2024 5:00 AM EDT [facility] Hemoglobin 7.6(L) 13.2 - 17.1 g/dL 10/14/2024 5:00 AM EDT [facility] Hematocrit 21.3(L) 38.5 - 50.0 % 10/14/2024 5:00 AM EDT [facility] MCV 101.7(H) 80.0 - 100.0 fL 10/14/2024 5:00 AM EDT [facility] MCH 36.3(H) 27.0 - 33.0 pg 10/14/2024 5:00 AM EDT [facility] MCHC 35.7 32.0 - 36.0 g/dL 10/14/2024 5:00 AM EDT [facility] RDW 17.6(H) 11.0 - 15.0 % 10/14/2024 5:00 AM EDT [facility] Platelets 35(L) 140 - 400 10E3/uL 10/14/2024 5:00 AM EDT [facility] Comment: Specimen checked for clots. None detected. Slide Reviewed for PLT Clumps. None Seen. MPV 8.5 7.5 - 11.5 fL 10/14/2024 5:00 AM EDT [facility] Whole Blood 10/14/2024 2:53 AM EDT 10/14/2024 4:17 AM EDT Eileen Schroeder MD, PhD LAB BLOOD ORDERABLES Final Result [facility] [address] * Cardiac Cath Documents Scan (10/14/2024 2:06 AM EDT) us Scanning [facility] SCAN DOCS - NO RESULTS Final [...] GADOBUTROL 1 MMOL/ML INTRAVENOUS SYRINGE ([facility]) administered intravenously COMPARISON: CT 09/03/2024. Ultrasound [...] GADOBUTROL 1 MMOL/ML INTRAVENOUS SYRINGE ([facility])administered intravenously COMPARISON: CT 09/03/2024. Ultrasound 10/07/2024. [...] - 15.1 seconds 10/13/2024 6:12 AM EDT [facility] INR 2.1(H) 0.9 - 1.1 10/13/2024 6:12 AM EDT [facility] Comment: RECOMMENDED THERAPEUTIC RANGES USING INR : Stable oral anticoagulant therapy: 2.0 - 3.0 Mechanical prosthetic heart valve: 2.5 - 3.5 Recurrent acute myocardial infarction: 2.5 - 3.5 Plasma 10/13/2024 5:35 AM EDT 10/13/2024 5:52 AM EDT Eileen Schroeder MD, PhD LAB BLOOD ORDERABLES Final Result [facility] [address] [place] [address], [facility] * (ABNORMAL) Hepatic Function Panel (10/13/2024 5:35 AM EDT) Total Bilirubin 6.5(H) 0.0 - 1.5 mg/dL 10/13/2024 6:30 AM EDT [facility] Bilirubin, Direct 3.53(H) 0.00 - 0.40 mg/dL 10/13/2024 6:30 AM EDT [facility] AST 42(H) 13 - 39 U/L 10/13/2024 6:30 AM EDT [facility] ALT 19 7 - 52 U/L 10/13/2024 6:30 AM EDT [facility] Alkaline Phosphatase 108 36 - 125 U/L 10/13/2024 6:30 AM EDT [facility] Total Protein 4.4(L) 6.4 - 8.9 g/dL 10/13/2024 6:30 AM EDT [facility] Albumin 3.1(L) 3.5 - 5.7 g/dL 10/13/2024 6:30 AM EDT [facility] Bilirubin, Indirect 2.97(H) 0.00 - 1.10 mg/dL 10/13/2024 6:30 AM EDT [facility] Plasma 10/13/2024 5:35 AM EDT 10/13/2024 5:52 AM EDT Eileen Schroeder MD, PhD LAB BLOOD ORDERABLES Final Result Performing Organization Address [facility] Co de Phone Number [facility] [address] * Magnesium (10/13/2024 5:35 AM EDT) Magnesium 2.0 1.5 - 2.5 mg/dL 10/13/2024 6:30 AM EDT [facility] Plasma 10/13/2024 5:35 AM EDT 10/13/2024 5:52 AM EDT Eileen Schroeder MD, PhD LAB BLOOD ORDERABLES Final Result Performing Organization Address City/[facility]/ZIP Co de Phone Number [facility] [address] * (ABNORMAL) Renal Function Panel w/EGFR (10/13/2024 5:35 AM EDT) Sodium 134 133 - 146 mmol/L 10/13/2024 6:30 AM EDT [facility] Potassium 3.7 3.5 - 5.3 mmol/L 10/13/2024 6:30 AM EDT [facility] Chloride 109 98 - 110 mmol/L 10/13/2024 6:30 AM EDT [facility] CO2 14(L) 21 - 33 mmol/L 10/13/2024 6:30 AM EDT [facility] Anion Gap 11 3 - 16 mmol/L 10/13/2024 6:30 AM EDT [facility] BUN 54(H) 7 - 25 mg/dL 10/13/2024 6:30 AM EDT [facility] Creatinine 2.99(H) 0.60 - 1.30 mg/dL 10/13/2024 6:30 AM EDT [facility] Glucose 116(H) 70 - 100 mg/dL 10/13/2024 6:30 AM EDT [facility] Calcium 8.3(L) 8.6 - 10.3 mg/dL 10/13/2024 6:30 AM EDT [facility] Phosphorus 4.5 2.1 - 4.7 mg/dL 10/13/2024 6:30 AM EDT [facility] Albumin 3.1(L) 3.5 - 5.7 g/dL 10/13/2024 6:30 AM EDT [facility] Osmolality, Calculated 294 278 - 305 mOsm/kg 10/13/2024 6:30 AM EDT [facility] EGFR 26 10/13/2024 6:30 AM EDT [facility] Comment:As of 2021, the estimated [...] MD, PhD LAB BLOOD ORDERABLES Final Result [facility] [address] [place] [address], [facility] * (ABNORMAL) CBC (10/13/2024 5:35 AM EDT) WBC 4.7 3.8 - 10.8 10E3/uL 10/13/2024 6:22 AM EDT [facility] RBC 2.06(L) 4.20 - 5.80 10E6/uL 10/13/2024 6:22 AM EDT [facility] Hemoglobin 7.4(L) 13.2 - 17.1 g/dL 10/13/2024 6:22 AM EDT [facility] Hematocrit 21.7(L) 38.5 - 50.0 % 10/13/2024 6:22 AM EDT [facility] MCV 105.4(H) 80.0 - 100.0 fL 10/13/2024 6:22 AM EDT [facility] MCH 35.9(H) 27.0 - 33.0 pg 10/13/2024 6:22 AM EDT [facility] MCHC 34.0 32.0 - 36.0 g/dL 10/13/2024 6:22 AM EDT [facility] RDW 18.5(H) 11.0 - 15.0 % 10/13/2024 6:22 AM EDT [facility] Platelets 35(L) 140 - 400 10E3/uL 10/13/2024 6:22 AM EDT [facility] Comment: CNV Specimen checked for clots. None detected. MPV 8.4 7.5 - 11.5 fL 10/13/2024 6:22 AM EDT [facility] Whole Blood 10/13/2024 5:35 AM EDT 10/13/2024 5:53 AM EDT us Eileen Schroeder MD, PhD LAB BLOOD ORDERABLES Final Result Performing Organization Address [facility]/ZIP Co de Phone Number [facility] [address] [facility]. [address] * (ABNORMAL) Ammonia (10/13/2024 5:35 AM EDT) Ammonia 203(HH) 27 - 90 ug/dL 10/13/2024 7:16 AM EDT [facility] Comment: HEMOLYSIS EVIDENT. RESULTS MAY BE INFLUENCED. Critical Result [id number] Called to and read back by: KEY MELO RN at: 10/13/2024 07:15:55 by:NISREEN Plasma 10/13/2024 5:35 AM EDT 10/13/2024 6:19 AM EDT us Ellis Mays DO LAB BLOOD ORDERABLES Final Resul t Performing Organization Address [facility]/ZIP Co de Phone Number [facility] [address] [facility]. [address] * CARISA Rhythm Strip - Scan (10/12/2024 10:30 PM EDT) us Scanning [facility] SCAN DOCS - NO RESULTS Final Res ult * (ABNORMAL) Protime-INR (10/12/2024 5:44 AM EDT) Protime 25.7(H) 12.1 - 15.1 seconds 10/12/2024 6:12 AM EDT [facility] INR 2.3(H) 0.9 - 1.1 10/12/2024 6:12 AM EDT [facility] Comment: RECOMMENDED THERAPEUTIC RANGES USING INR : Stable oral anticoagulant therapy: 2.0 - 3.0 Mechanical prosthetic heart valve: 2.5 - 3.5 Recurrent acute myocardial infarction: 2.5 - 3.5 Plasma 10/12/2024 5:44 AM EDT 10/12/2024 5:58 AM EDT Eileen Schroeder MD, PhD LAB BLOOD ORDERABLES Final Result Performing Organization Address [facility] de Phone Number [facility] [address] * (ABNORMAL) Hepatic Function Panel (10/12/2024 5:44 AM EDT) Total Bilirubin 6.5(H) 0.0 - 1.5 mg/dL 10/12/2024 6:29 AM EDT [facility] Bilirubin, Direct 3.64(H) 0.00 - 0.40 mg/dL 10/12/2024 6:29 AM EDT [facility] AST 40(H) 13 - 39 U/L 10/12/2024 6:29 AM EDT [facility] ALT 19 7 - 52 U/L 10/12/2024 6:29 AM EDT [facility] Alkaline Phosphatase 99 36 - 125 U/L 10/12/2024 6:29 AM EDT [facility] Total Protein 4.2(L) 6.4 - 8.9 g/dL 10/12/2024 6:29 AM EDT [facility] Albumin 3.1(L) 3.5 - 5.7 g/dL 10/12/2024 6:29 AM EDT [facility] Bilirubin, Indirect 2.86(H) 0.00 - 1.10 mg/dL 10/12/2024 6:29 AM EDT [facility] Plasma 10/12/2024 5:44 AM EDT 10/12/2024 5:58 AM EDT Eileen Schroeder MD, PhD LAB BLOOD ORDERABLES Final Result Performing Organization Address [facility] Co de Phone Number [facility] [address] * Magnesium (10/12/2024 5:44 AM EDT) Magnesium 1.9 1.5 - 2.5 mg/dL 10/12/2024 6:29 AM EDT [facility] Plasma 10/12/2024 5:4 4 AM EDT 10/12/2024 5:58 AM EDT us Eileen Schroeder MD, PhD LAB BLOOD ORDERABLES Final Result [facility] [address] [place], [place] [address] * (ABNORMAL) Renal Function Panel w/EGFR (10/12/2024 5:44 AM EDT) Sodium 135 133 - 146 mmol/L 10/12/2024 6:29 AM EDT [facility] Potassium 3.7 3.5 - 5.3 mmol/L 10/12/2024 6:29 AM EDT [facility] Chloride 109 98 - 110 mmol/L 10/12/2024 6:29 AM EDT [facility] CO2 17(L) 21 - 33 mmol/L 10/12/2024 6:29 AM EDT [facility] Anion Gap 9 3 - 16 mmol/L 10/12/2024 6:29 AM EDT [facility] BUN 52(H) 7 - 25 mg/dL 10/12/2024 6:29 AM EDT [facility] Creatinine 2.94(H) 0.60 - 1.30 mg/dL 10/12/2024 6:29 AM EDT [facility] Glucose 121(H) 70 - 100 mg/dL 10/12/2024 6:29 AM EDT [facility] Calcium 8.5(L) 8.6 - 10.3 mg/dL 10/12/2024 6:29 AM EDT [facility] Phosphorus 4.6 2.1 - 4.7 mg/dL 10/12/2024 6:29 AM EDT [facility] Albumin 3.1(L) 3.5 - 5.7 g/dL 10/12/2024 6:29 AM EDT [facility] Osmolality, Calculated 295 278 - 305 mOsm/kg 10/12/2024 6:29 AM EDT [facility] EGFR 27 10/12/2024 6:29 AM EDT [facility] Comment:As of [...] MD, PhD LAB BLOOD ORDERABLES Final Result [facility] [address] [place] [address], [facility] * (ABNORMAL) CBC (10/12/2024 5:44 AM EDT) WBC 3.3(L) 3.8 - 10.8 10E3/uL 10/12/2024 7:06 AM EDT [facility] RBC 1.95(L) 4.20 - 5.80 10E6/uL 10/12/2024 7:06 AM EDT [facility] Hemoglobin 7.2(L) 13.2 - 17.1 g/dL 10/12/2024 7:06 AM EDT [facility] Hematocrit 19.7(L) 38.5 - 50.0 % 10/12/2024 7:06 AM EDT [facility] MCV 101.2(H) 80.0 - 100.0 fL 10/12/2024 7:06 AM EDT [facility] MCH 37.0(H) 27.0 - 33.0 pg 10/12/2024 7:06 AM EDT [facility] MCHC 36.5(H) 32.0 - 36.0 g/dL 10/12/2024 7:06 AM EDT [facility] RDW 17.6(H) 11.0 - 15.0 % 10/12/2024 7:06 AM EDT [facility] Platelets 30(L) 140 - 400 10E3/uL 10/12/2024 7:06 AM EDT [facility] Comment: Specimen checked for clots. None detected. Slide Reviewed for PLT Clumps. None Seen. Platelet Estimate Decreased 10/12/2024 7:06 AM EDT [facility] MPV 8.3 7.5 - 11.5 fL 10/12/2024 7:06 AM EDT [facility] Whole Blood 10/12/2024 5:44 AM EDT 10/12/2024 5:58 AM EDT Narrative [facility] - 10/12/2024 7:06 AM EDT Peripheral blood smear was scanned per review criteria approved by the laboratory medical appliance maker. us Eileen Schroeder MD, PhD LAB BLOOD ORDERABLES Final Result [facility] [address] * CARISA Rhythm Strip - Scan (10/11/2024 10:04 PM EDT) us Scanning [facility] SCAN DOCS - NO RESULTS Final Res ult * (ABNORMAL) Protime-INR (10/11/2024 3:02 AM EDT) Protime 26.8(H) 12.1 - 15.1 seconds 10/11/2024 3:30 AM EDT [facility] INR 2.4(H) 0.9 - 1.1 10/11/2024 3:30 AM EDT [facility] Comment: RECOMMENDED THERAPEUTIC RANGES USING INR : Stable oral anticoagulant therapy: 2.0 - 3.0 Mechanical prosthetic heart valve: 2.5 - 3.5 Recurrent acute myocardial infarction: 2.5 - 3.5 Plasma 10/11/2024 3:02 AM EDT 10/11/2024 3:08 AM EDT us Eileen Schroeder MD, PhD LAB BLOOD ORDERABLES Final Result Performing Organization Address [facility] Co de Phone Number [facility] [address] * (ABNORMAL) Hepatic Function Panel (10/11/2024 3:02 AM EDT) Total Bilirubin 7.3(H) 0.0 - 1.5 mg/dL 10/11/2024 3:38 AM EDT [facility] Bilirubin, Direct 3.85(H) 0.00 - 0.40 mg/dL 10/11/2024 3:38 AM EDT [facility] AST 39 13 - 39 U/L 10/11/2024 3:38 AM EDT [facility] ALT 20 7 - 52 U/L 10/11/2024 3:38 AM EDT [facility] Alkaline Phosphatase 88 36 - 125 U/L 10/11/2024 3:38 AM EDT [facility] Total Protein 4.5(L) 6.4 - 8.9 g/dL 10/11/2024 3:38 AM EDT [facility] Albumin 3.3(L) 3.5 - 5.7 g/dL 10/11/2024 3:38 AM EDT [facility] Bilirubin, Indirect 3.45(H) 0.00 - 1.10 mg/dL 10/11/2024 3:38 AM EDT [facility] Plasma 10/11/2024 3:02 AM EDT 10/11/2024 3:08 AM EDT us Eileen Schroeder MD, PhD LAB BLOOD ORDERABLES Final Result Performing Organization Address [facility] Co de Phone Number [facility] [address] * Magnesium (10/11/2024 3:02 AM EDT) Magnesium 2.0 1.5 - 2.5 mg/dL 10/11/2024 3:38 AM EDT [facility] Plasma 10/11/2024 3:02 AM EDT 10/11/2024 3:08 AM EDT Eileen Schroeder MD, PhD LAB BLOOD ORDERABLES Final Result [facility] [address] [place] [address], [facility] * (ABNORMAL) Renal Function Panel w/EGFR (10/11/2024 3:02 AM EDT) Sodium 134 133 - 146 mmol/L 10/11/2024 3:38 AM EDT [facility] Potassium 3.6 3.5 - 5.3 mmol/L 10/11/2024 3:38 AM EDT [facility] Chloride 108 98 - 110 mmol/L 10/11/2024 3:38 AM EDT [facility] CO2 16(L) 21 - 33 mmol/L 10/11/2024 3:38 AM EDT [facility] Anion Gap 10 3 - 16 mmol/L 10/11/2024 3:38 AM EDT [facility] BUN 49(H) 7 - 25 mg/dL 10/11/2024 3:38 AM EDT [facility] Creatinine 2.77(H) 0.60 - 1.30 mg/dL 10/11/2024 3:38 AM EDT [facility] Glucose 112(H) 70 - 100 mg/dL 10/11/2024 3:38 AM EDT [facility] Calcium 8.9 8.6 - 10.3 mg/dL 10/11/2024 3:38 AM EDT [facility] Phosphorus 3.5 2.1 - 4.7 mg/dL 10/11/2024 3:38 AM EDT [facility] Albumin 3.3(L) 3.5 - 5.7 g/dL 10/11/2024 3:38 AM EDT [facility] Osmolality, Calculated 292 278 - 305 mOsm/kg 10/11/2024 3:38 AM EDT [facility] EGFR 29 10/11/2024 3:38 AM EDT [facility] Comment:As of 2021, the estimated [...] BLOOD ORDERABLES Final Result Performing Organization Address City/State/[facility] Co de Phone Number [facility] [address] * (ABNORMAL) CBC (10/11/2024 3:02 AM EDT) WBC 4.0 3.8 - 10.8 10E3/uL 10/11/2024 3:55 AM EDT [facility] RBC 2.11(L) 4.20 - 5.80 10E6/uL 10/11/2024 3:55 AM EDT [facility] Hemoglobin 7.7(L) 13.2 - 17.1 g/dL 10/11/2024 3:55 AM EDT [facility] Hematocrit 21.2(L) 38.5 - 50.0 % 10/11/2024 3:55 AM EDT [facility] MCV 100.5(H) 80.0 - 100.0 fL 10/11/2024 3:55 AM EDT [facility] MCH 36.4(H) 27.0 - 33.0 pg 10/11/2024 3:55 AM EDT [facility] MCHC 36.2(H) 32.0 - 36.0 g/dL 10/11/2024 3:55 AM EDT [facility] RDW 17.9(H) 11.0 - 15.0 % 10/11/2024 3:55 AM EDT [facility] Platelets 32(L) 140 - 400 10E3/uL 10/11/2024 3:55 AM EDT [facility] Comment: Specimen checked for clots. None detected. Slide Reviewed for PLT Clumps. None Seen. Platelet Estimate Decreased 10/11/2024 3:55 AM EDT [facility] MPV 8.1 7.5 - 11.5 fL 10/11/2024 3:55 AM EDT [facility] Whole Blood 10/11/2024 3:02 AM EDT 10/11/2024 3:08 AM EDT Narrative [facility] - 10/11/2024 3:55 AM EDT Peripheral blood smear was scanned per review criteria approved by the laboratory medical appliance maker. us Eileen Schroeder MD, PhD LAB BLOOD ORDERABLES Final Result [facility] [address] [facility]. [address] * Vancomycin, random (10/11/2024 3:02 AM EDT) Vancomycin Random 13.4 ug/mL 10/11/2024 3:37 AM EDT [facility] Comment:Reference range not established for this test. Plasma 10/11/2024 3:02 AM EDT 10/11/2024 3:08 AM EDT us Jodi FreireD LAB BLOOD ORDERABLES Final Result Performing Organization Address City/[facility]/ZIP Co de Phone Number [facility] [address] [facility]. [address] * IR Paracentesis incl imaging guide [...] diagnostic and therapeutic paracentesis. Bakari Wahl CNP, Printed Circuit Board Pcb Designer Procedure and Findings: The procedure was performed [...] Using ultrasound guidance, a 10 cm, 5-F CereScan Centesis catheter was placed into the right [...] for diagnostic andtherapeutic paracentesis. Bakari Wahl CNP, Printed Circuit Board Pcb Designer Procedure and Findings: The procedure was performed [...] Using ultrasound guidance, a 10 cm, 5-F CereScan Centesis catheter was placedinto the right lower [...] 10/10/2024 3:31 PM EDT Chari Vanegas MD [facility] IR ORDERABLES Final Result * Stress Testing Lab - scan (10/10/2024 3:08 PM EDT) us Scanning [facility] SCAN DOCS - NO RESULTS Final Res ult * (ABNORMAL) Body fluid cell count (10/10/2024 1:51 PM EDT) Color, Fluid Yellow(A) Colorless, Pale Yellow 10/10/2024 5:29 PM EDT [facility] Clarity, Fluid Clear 10/10/2024 5:29 PM EDT [facility] Neutrophil %, Fluid 9 % 10/10/2024 5:29 PM EDT [facility] Lymphocytes %, Fluid 13 % 10/10/2024 5:29 PM EDT [facility] Mesothelial %, Fluid 6 % 10/10/2024 5:29 PM EDT [facility] Macrophage %, Fluid 72 % 10/10/2024 5:29 PM EDT [facility] RBC, Fluid 2,662 /uL 10/10/2024 4:41 PM EDT [facility] Total Nucleated Cells, Fluid 89 /uL 10/10/2024 4:41 PM EDT [facility] Comment:Total Nucleated Cell s represent WBCs and other nucleated cells in the fluid such as lining cells. Ascitic Fluid ABDOMEN / Unknown 1:51 PM EDT 10/10/2024 3:56 PM EDT Gerri Peterson MD BODY FLUIDS AND STOOLS ORDERABL ES Final Result Performing Organization Address City/[facility]/ZIP Co de Phone Number [facility] [address] [facility]. [address] * Body Fluid Culture plus Stain (10/10/2024 1:51 PM EDT) Gram Stain Result Cytospin Results: [facility] Gram Stain Result Polymorphonuclear Leukocytes Seen; [facility] Gram Stain Result No Organisms Seen; [facility] Culture Result No Growth After 5 Days [facility] Fluid ABDOMEN / Unknown 10/10/2024 1:51 PM EDT 10/10/2024 3:56 PM EDT Gerri Peterson MD MICROBIOLOGY - GENERAL ORDERABL ES Final Result [facility] [address] [facility]. [address] * UPPER GI ENDOSCOPY (10/10/2024 11:48 AM EDT) 10/10/2024 11:4 8 AM EDT Narrative [facility] - 10/10/2024 12:34 PM EDT [id number] Procedure Date: 10/10/2024 11:48 AM Patient Name: Julien Gilbert Date of : 1985 Admit Type: Inpatient Age: 39 Gender: Male Note Status: Finalized Attending MD: Lino Soto MD, [id number] Procedure: Upper GI endoscopy Indications: Gastroesopahgeal variceal [...] verified by the physician, the nurse, the records management specialist and the radio/tv technician in the pre-procedure area in the [...] to hypotension Procedure Code(s): --- Professional --- 26054, GC, Esophagogastroduodenoscopy, flexible, transoral; diagnostic, including collection of specimen(s) by brushing or washing, when performed (separate procedure) Diagnosis Code(s): --- Professional --- I85.00, Esophageal varices without bleeding K76.6, Portal hypertension K31.89, Other diseases of stomach and duodenum CPT copyright 2022 [employer]. All rights reserved. The codes documented in this report are preliminary and upon belt notcher review may be revised to meet current [...] In: 12:10:16 PM Scope Out: 12:17:[address] [place] [address], [facility] us Provider Not In System PROCEDURE/MINOR SURGICAL ORDERABLES Final Result Performing Organization Address City/[facility] Co de Phone Number [facility] * (ABNORMAL) Protime-INR (10/10/2024 5:23 AM EDT) Protime 23.9(H) 12.1 - 15.1 seconds 10/10/2024 6:11 AM EDT [facility] INR 2.1(H) 0.9 - 1.1 10/10/2024 6:11 AM EDT [facility] Comment: RECOMMENDED THERAPEUTIC RANGES USING INR : Stable oral anticoagulant therapy: 2.0 - 3.0 Mechanical prosthetic heart valve: 2.5 - 3.5 Recurrent acute myocardial infarction: 2.5 - 3.5 Plasma 10/10/2024 5:23 AM EDT 10/10/2024 5:50 AM EDT us Eileen Schroeder MD, PhD LAB BLOOD ORDERABLES Final Result Performing Organization Address City/[facility]/ZIP Co de Phone Number [facility] [address] [place] [address] * (ABNORMAL) Hepatic Function Panel (10/10/2024 5:23 AM EDT) Total Bilirubin 8.6(H) 0.0 - 1.5 mg/dL 10/10/2024 6:21 AM EDT [facility] Bilirubin, Direct 4.65(H) 0.00 - 0.40 mg/dL 10/10/2024 6:21 AM EDT [facility] AST 40(H) 13 - 39 U/L 10/10/2024 6:21 AM EDT [facility] ALT 22 7 - 52 U/L 10/10/2024 6:21 AM EDT [facility] Alkaline Phosphatase 118 36 - 125 U/L 10/10/2024 6:21 AM EDT [facility] Total Protein 4.6(L) 6.4 - 8.9 g/dL 10/10/2024 6:21 AM EDT [facility] Albumin 3.3(L) 3.5 - 5.7 g/dL 10/10/2024 6:21 AM EDT [facility] Bilirubin, Indirect 3.95(H) 0.00 - 1.10 mg/dL 10/10/2024 6:21 AM EDT [facility] Plasma 10/10/2024 5:23 AM EDT 10/10/2024 5:50 AM EDT Eileen Schroeder MD, PhD LAB BLOOD ORDERABLES Final Result Performing Organization Address City/[facility]/ZIP Co de Phone Number [facility] [address] * Magnesium (10/10/2024 5:23 AM EDT) Magnesium 1.9 1.5 - 2.5 mg/dL 10/10/2024 6:21 AM EDT [facility] Plasma 10/10/2024 5:23 AM EDT 10/10/2024 5:50 AM EDT Eileen Schroeder MD, PhD LAB BLOOD ORDERABLES Final Result [facility] [address] * (ABNORMAL) Renal Function Panel w/EGFR (10/10/2024 5:23 AM EDT) Sodium 135 133 - 146 mmol/L 10/10/2024 6:21 AM EDT [facility] Potassium 3.6 3.5 - 5.3 mmol/L 10/10/2024 6:21 AM EDT [facility] Chloride 108 98 - 110 mmol/L 10/10/2024 6:21 AM EDT [facility] CO2 17(L) 21 - 33 mmol/L 10/10/2024 6:21 AM EDT [facility] Anion Gap 10 3 - 16 mmol/L 10/10/2024 6:21 AM EDT [facility] BUN 53(H) 7 - 25 mg/dL 10/10/2024 6:21 AM EDT [facility] Creatinine 2.85(H) 0.60 - 1.30 mg/dL 10/10/2024 6:21 AM EDT [facility] Glucose 113(H) 70 - 100 mg/dL 10/10/2024 6:21 AM EDT [facility] Calcium 9.0 8.6 - 10.3 mg/dL 10/10/2024 6:21 AM EDT [facility] Phosphorus 3.3 2.1 - 4.7 mg/dL 10/10/2024 6:21 AM EDT [facility] Albumin 3.3(L) 3.5 - 5.7 g/dL 10/10/2024 6:21 AM EDT [facility] Osmolality, Calculated 295 278 - 305 mOsm/kg 10/10/2024 6:21 AM EDT [facility] EGFR 28 10/10/2024 6:21 AM EDT [facility] Comment:As of 2021, the estimated [...] MD, PhD LAB BLOOD ORDERABLES Final Result [facility] [address] [place] [address], [facility] * (ABNORMAL) CBC (10/10/2024 5:23 AM EDT) WBC 5.1 3.8 - 10.8 10E3/uL 10/10/2024 6:14 AM EDT [facility] RBC 2.04(L) 4.20 - 5.80 10E6/uL 10/10/2024 6:14 AM EDT [facility] Hemoglobin 7.3(L) 13.2 - 17.1 g/dL 10/10/2024 6:14 AM EDT [facility] Hematocrit 20.6(L) 38.5 - 50.0 % 10/10/2024 6:14 AM EDT [facility] MCV 101.2(H) 80.0 - 100.0 fL 10/10/2024 6:14 AM EDT [facility] MCH 36.0(H) 27.0 - 33.0 pg 10/10/2024 6:14 AM EDT [facility] MCHC 35.5 32.0 - 36.0 g/dL 10/10/2024 6:14 AM EDT [facility] RDW 17.6(H) 11.0 - 15.0 % 10/10/2024 6:14 AM EDT [facility] Platelets 39(L) 140 - 400 10E3/uL 10/10/2024 6:14 AM EDT [facility] Comment: CNV Specimen checked for clots. None detected. MPV 9.8 7.5 - 11.5 fL 10/10/2024 6:14 AM EDT [facility] Whole Blood 10/10/2024 5:23 AM EDT 10/10/2024 5:51 AM EDT us Eileen Schroeder MD, PhD LAB BLOOD ORDERABLES Final Result [facility] [address] * Vancomycin, random (10/10/2024 5:23 AM EDT) Vancomycin Random 16.4 ug/mL 10/10/2024 6:22 AM EDT [facility] Comment:Reference range not established for this test. Plasma 10/10/2024 5:23 AM EDT 10/10/2024 5:51 AM EDT us Jodi Ortiz PharmD LAB BLOOD ORDERABLES Final Result [facility] [address] * ECHO STRESS W/ CONTRAST (10/09/2024 4:37 PM EDT) Anatomical Region Laterality Modality Chest Ultrasound 10/09/2024 2:40 PM EDT Narrative 10/09/2024 6:45 PM EDT * [facility]* [address] [place] [address] Stress Echocardiogram Patient: Julien Gilbert Room: 8142 Height: 76in MR Number: [id number] : 1985 Weight: 262lb Account: [id number] Gender: M BP: 125 / 77 Study Date: 10/09/2024 Age: 39 BSA: 2.48m^2 Referring physician: Gerri Peterson Interpreting physician: Tonya Henriquez MD FELLOW Lisa Jha MD PERFORMING Tonya Henriquez MD BINDER SELECTOR [employer] ORDERING Gerri Peterson REFERRING Gerri [...] was augmented by the addition of hand professor of anthropology and leg lifts. The infusion was terminated [...] at baseline or with provocation, shows no kgmqt-bs-wuup atrial level shunt. - Pulmonary arteries: Systolic [...] at baseline or with provocation, shows no kkxti-bp-ckpb atrial level shunt. Pulmonary artery: - Systolic [...] at baseline or with provocation, shows no pnnii-km-tcao atrial level shunt. Pericardium: - There is [...] peak heart rate and blood pressure was 16618zc Hg/min. Stress testing did not produce any [...] Reviewed and confirmed by Tonya Henriquez MD [id number] Procedure Note Tonya Henriquez MD - 10/09/2024 * [facility]* [address] [place] [address] [id number] Stress Echocardiogram Patient: Julien Gilbert Room: 8142 Height: 76in MR Number: [id number] : 1985 Weight: 262lb Account: [id number] Gender: M BP: 125 / 77 Study Date: 10/09/2024 Age: 39 BSA: 2.48m^2 Referring physician: Gerri Peterson Interpreting physician: Tonya Henriquez MD FELLOW Lisa Jha MD PERFORMING Tonya Henriquez MD BINDER SELECTOR [employer] Askanda REFERRING Gerri Peterson ATTENDING Fouzia Rene ADMITTING Angie Blanchard Procedure:STRESS ECHO - PHARMACOLOGIC Order: Indications: Pre-Operative Clearance (Z01.818). PMH: EtOH Use Disorder. Risk factors: Hypertension. Dyslipidemia. Study data: Height: 76in. 193cm. Weight: 262lb. 118.8kg. The previousstudy was not available, so comparison was made to the report of 07/15/2024. Study status: Routine. [facility]. Intravenous [...] was augmented by the addition of hand professor of anthropology and leg lifts. The infusion was terminated [...] at baseline or with provocation, shows no gkftf-ch-seef atrial level shunt. - Pulmonary arteries: Systolic [...] study at baseline or with provocation, showsno fjyxb-fc-rbdo atrial level shunt. Pulmonary artery: - Systolic [...] at baseline or with provocation, shows no aoumh-my-ktzv atrial level shunt. Pericardium: - There is [...] heart rate). The maximal predicted heart rate [id number]. The target heart rate was 152bpm. The target heart rate was achieved.The heart rate response to stress is normal. There is a normal resting blood pressure with an appropriate response to stress. The rate-pressureproduct for the peak heart rate and blood pressure was 66467cm Hg/min. Stress testing did not produce any [...] Reviewed and confirmed by Tonya Henriquez MD [id number] us Gerri Peterson MD CV ECHO ORDERABLES Final Result * (ABNORMAL) Renal Function Panel w/EGFR, STAT (10/09/2024 1:05 PM EDT) Sodium 134 133 - 146 mmol/L 10/09/2024 2:10 PM [facility] Potassium 3.7 3.5 - 5.3 mmol/L 10/09/2024 2:10 PM EDT [facility] Chloride 105 98 - 110 mmol/L 10/09/2024 2:10 PM EDT [facility] CO2 17(L) 21 - 33 mmol/L 10/09/2024 2:10 PM EDT [facility] Anion Gap 12 3 - 16 mmol/L 10/09/2024 2:10 PM EDT [facility] BUN 53(H) 7 - 25 mg/dL 10/09/2024 2:10 PM EDT [facility] Creatinine 2.89(H) 0.60 - 1.30 mg/dL 10/09/2024 2:10 PM EDT [facility] Glucose 108(H) 70 - 100 mg/dL 10/09/2024 2:10 PM EDT [facility] Calcium 9.3 8.6 - 10.3 mg/dL 10/09/2024 2:10 PM EDT [facility] Phosphorus 3.4 2.1 - 4.7 mg/dL 10/09/2024 2:10 PM EDT [facility] Albumin 3.6 3.5 - 5.7 g/dL 10/09/2024 2:10 PM EDT [facility] Osmolality, Calculated 293 278 - 305 mOsm/kg 10/09/2024 2:10 PM EDT [facility] EGFR 27 10/09/2024 2:10 PM EDT [facility] Comment:As of 2021, the estimated [...] MD, PhD LAB BLOOD ORDERABLES Final Result [facility] [address] [place] [address], [facility] * (ABNORMAL) Renal Function Panel w/EGFR, STAT (10/09/2024 8:14 AM EDT) Sodium 134 133 - 146 mmol/L 10/09/2024 8:47 AM T [facility] Potassium 3.4(L) 3.5 - 5.3 mmol/L 10/09/2024 8:47 AM T [facility] Chloride 107 98 - 110 mmol/L 10/09/2024 8:47 AM EDT [facility] CO2 17(L) 21 - 33 mmol/L 10/09/2024 8:47 AM EDT [facility] Anion Gap 10 3 - 16 mmol/L 10/09/2024 8:47 AM T [facility] BUN 54(H) 7 - 25 mg/dL 10/09/2024 8:47 AM [facility] Creatinine 3.04(H) 0.60 - 1.30 mg/dL 10/09/2024 8:47 AM [facility] Glucose 124(H) 70 - 100 mg/dL 10/09/2024 8:47 AM [facility] Calcium 9.0 8.6 - 10.3 mg/dL 10/09/2024 8:47 AM [facility] Phosphorus 3.5 2.1 - 4.7 mg/dL 10/09/2024 8:47 AM [facility] Albumin 3.4(L) 3.5 - 5.7 g/dL 10/09/2024 8:47 AM [facility] Osmolality, Calculated 294 278 - 305 mOsm/kg 10/09/2024 8:47 AM [facility] EGFR 26 10/09/2024 8:47 AM [facility] Comment:As of 2021, the [...] MD LAB BLOOD ORDERABLES Final Resu lt [facility] [address] * Prepare RBC, leukoreduced, 1 Units (10/09/2024 6:16 AM EDT) Product Code N7541D39 [facility] Unit Number [id number] [facility] Dispense Status Presumed Transfused_PT [facility] Blood Expiration Date [id number] [facility] Coding System [id number] [facility] Blood Bank Product us Eileen Schroeder MD, PhD BLOOD BANK PRODUCT OR DERABLES Final Result Performing Organization Address [facility]/ZIP Co de Phone Number [facility] * (ABNORMAL) Protime-INR (10/09/2024 4:59 AM EDT) Protime 26.5(H) 12.1 - 15.1 seconds 10/09/2024 6:30 AM EDT [facility] INR 2.4(H) 0.9 - 1.1 10/09/2024 6:30 AM EDT [facility] Comment: RECOMMENDED THERAPEUTIC RANGES USING INR : Stable oral anticoagulant therapy: 2.0 - 3.0 Mechanical prosthetic heart valve: 2.5 - 3.5 Recurrent acute myocardial infarction: 2.5 - 3.5 Plasma 10/09/2024 4:59 AM EDT 10/09/2024 5:55 AM EDT Eileen Schroeder MD, PhD LAB BLOOD ORDERABLES Final Result Performing Organization Address City/[facility]/ZIP Co de Phone Number [facility] [address] * (ABNORMAL) Hepatic Function Panel (10/09/2024 4:59 AM EDT) Total Bilirubin 9.0(H) 0.0 - 1.5 mg/dL 10/09/2024 6:42 AM EDT [facility] Bilirubin, Direct 4.60(H) 0.00 - 0.40 mg/dL 10/09/2024 6:42 AM EDT [facility] AST 38 13 - 39 U/L 10/09/2024 6:42 AM EDT [facility] ALT 18 7 - 52 U/L 10/09/2024 6:42 AM EDT [facility] Alkaline Phosphatase 122 36 - 125 U/L 10/09/2024 6:42 AM EDT [facility] Total Protein 4.8(L) 6.4 - 8.9 g/dL 10/09/2024 6:42 AM EDT [facility] Albumin 3.4(L) 3.5 - 5.7 g/dL 10/09/2024 6:42 AM EDT [facility] Bilirubin, Indirect 4.40(H) 0.00 - 1.10 mg/dL 10/09/2024 6:42 AM EDT [facility] Plasma 10/09/2024 4:59 AM EDT 10/09/2024 5:57 AM EDT Eileen Schroeder MD, PhD LAB BLOOD ORDERABLES Final Result [facility] [address] * Magnesium (10/09/2024 4:59 AM EDT) Magnesium 1.8 1.5 - 2.5 mg/dL 10/09/2024 6:42 AM EDT [facility] Plasma 10/09/2024 4:59 AM EDT 10/09/2024 5:57 AM EDT Eileen Schroeder MD, PhD LAB BLOOD ORDERABLES Final Result [facility] [address] [place] [address], [facility] * (ABNORMAL) Renal Function Panel w/EGFR (10/09/2024 4:59 AM EDT) Sodium 134 133 - 146 mmol/L 10/09/2024 6:42 AM EDT [facility] Potassium 3.3(L) 3.5 - 5.3 mmol/L 10/09/2024 6:42 AM EDT [facility] Chloride 107 98 - 110 mmol/L 10/09/2024 6:42 AM EDT [facility] CO2 16(L) 21 - 33 mmol/L 10/09/2024 6:42 AM EDT [facility] Anion Gap 11 3 - 16 mmol/L 10/09/2024 6:42 AM EDT [facility] BUN 56(H) 7 - 25 mg/dL 10/09/2024 6:42 AM EDT [facility] Creatinine 2.98(H) 0.60 - 1.30 mg/dL 10/09/2024 6:42 AM EDT [facility] Glucose 112(H) 70 - 100 mg/dL 10/09/2024 6:42 AM EDT [facility] Calcium 9.0 8.6 - 10.3 mg/dL 10/09/2024 6:42 AM EDT [facility] Phosphorus 3.5 2.1 - 4.7 mg/dL 10/09/2024 6:42 AM EDT [facility] Albumin 3.4(L) 3.5 - 5.7 g/dL 10/09/2024 6:42 AM EDT [facility] Osmolality, Calculated 294 278 - 305 mOsm/kg 10/09/2024 6:42 AM EDT [facility] EGFR 26 10/09/2024 6:42 AM EDT [facility] Comment:As of 2021, the estimated [...] MD, PhD LAB BLOOD ORDERABLES Final Result [facility] [address] [id number], [facility] * (ABNORMAL) CBC (10/09/2024 4:59 AM EDT) WBC 4.6 3.8 - 10.8 10E3/uL 10/09/2024 6:21 AM EDT [facility] RBC 2.17(L) 4.20 - 5.80 10E6/uL 10/09/2024 6:21 AM EDT [facility] Hemoglobin 8.0(L) 13.2 - 17.1 g/dL 10/09/2024 6:21 AM EDT [facility] Hematocrit 21.8(L) 38.5 - 50.0 % 10/09/2024 6:21 AM EDT [facility] MCV 100.5(H) 80.0 - 100.0 fL 10/09/2024 6:21 AM EDT [facility] MCH 36.7(H) 27.0 - 33.0 pg 10/09/2024 6:21 AM EDT [facility] MCHC 36.5(H) 32.0 - 36.0 g/dL 10/09/2024 6:21 AM EDT [facility] RDW 18.1(H) 11.0 - 15.0 % 10/09/2024 6:21 AM EDT [facility] Platelets 36(L) 140 - 400 10E3/uL 10/09/2024 6:21 AM EDT [facility] Comment:Specimen checked for clots. None detected. MPV 8.3 7.5 - 11.5 fL 10/09/2024 6:21 AM EDT [facility] Whole Blood 10/09/2024 4:59 AM EDT 10/09/2024 5:56 AM EDT us Eileen Schroeder MD, PhD LAB BLOOD ORDERABLES Final Result Performing Organization Address City/[facility]/ZIP Co de Phone Number [facility] [address] * Renal Tx Recipient (10/09/2024 4:59 AM EDT) Pathologist [facility] Renal Transplant Recipient The request and specimen(s) for this test have been received and transported to the [facility] at [address] [place] [address]. The [facility] will report results directly to the client. 10/09/2024 7:26 AM EDT [facility] Blood 10/09/2024 4:59 AM EDT 10/09/2024 7:26 AM EDT us Aaron Gonzalez MD LAB BLOOD ORDERABLES Final Resu lt Performing Organization Address [facility] Co de Phone Number [facility] [address] * Vancomycin, random (10/09/2024 4:59 AM EDT) Pathologist [facility] Vancomycin Random 11.0 ug/mL 10/09/2024 6:33 AM EDT [facility] Comment:Reference range not established for this test. Plasma 10/09/2024 4:59 AM EDT 10/09/2024 5:56 AM EDT us Jodi FreireD LAB BLOOD ORDERABLES Final Result Performing Organization Address [facility] Co de Phone Number [facility] [address] * (ABNORMAL) CBC (10/08/2024 5:52 PM EDT) WBC 5.6 3.8 - 10.8 10E3/uL 10/08/2024 6:52 PM EDT [facility] RBC 2.38(L) 4.20 - 5.80 10E6/uL 10/08/2024 6:52 PM EDT [facility] Hemoglobin 8.3(L) 13.2 - 17.1 g/dL 10/08/2024 6:52 PM EDT [facility] Hematocrit 24.6(L) 38.5 - 50.0 % 10/08/2024 6:52 PM EDT [facility] MCV 103.2(H) 80.0 - 100.0 fL 10/08/2024 6:52 PM EDT [facility] MCH 34.7(H) 27.0 - 33.0 pg 10/08/2024 6:52 PM EDT [facility] MCHC 33.6 32.0 - 36.0 g/dL 10/08/2024 6:52 PM EDT [facility] RDW 18.5(H) 11.0 - 15.0 % 10/08/2024 6:52 PM EDT [facility] Platelets 39(L) 140 - 400 10E3/uL 10/08/2024 6:52 PM EDT [facility] Comment:CNV MPV 8.1 7.5 - 11.5 fL 10/08/2024 6:52 PM EDT [facility] Whole Blood 10/08/2024 5:52 PM EDT 10/08/2024 6:45 PM EDT us Eileen Schroeder MD, PhD LAB BLOOD ORDERABLES Final Result [facility] [address] * Transfuse RBC Has consent been [...] - BLOOD ADMIN Final Result EXTERNAL * (ABNORMAL) MMR(IgG) Panel (Measles, Mumps, Rubella) (10/08/2024 10:25 AM EDT) Mumps IgG Positive 10/08/2024 11:39 AM EDT [facility] MUMPS IGG NUM 99.00(H) 0.0 - 8.9 U/mL 10/08/2024 11:39 AM EDT [facility] Rubella IgG Scr Positive 10/08/2024 11:40 AM EDT [facility] RUB NUM 4.15(H) 0.00 - 0.89 INDEX 10/08/2024 11:40 AM EDT [facility] Rubeola Ab, IgG Positive 10/08/2024 11:39 AM EDT [facility] RUB IGG NUM 273.00(H) 0.00 - 13.40 U/mL 10/08/2024 11:39 AM EDT [facility] Serum 10/08/2024 10:2 5 AM EDT 10/08/2024 10:49 AM EDT Narrative [facility] - 10/08/2024 11:40 AM EDT [...] MD LAB BLOOD ORDERABLES Final Resu lt [facility] [address] [place] [address], [facility] * (ABNORMAL) Hemoglobin A1C (10/08/2024 10:25 AM EDT) Hemoglobin A1C 3.7(L) 4.0 - 5.6 % 10/09/2024 1:22 PM EDT [facility] Comment: Hemoglobin A1c Interpretation Guidelines: [...] MD LAB BLOOD ORDERABLES Final Resu lt [facility] [address] * (ABNORMAL) Vitamin D 25 Hydroxy (10/08/2024 10:25 AM EDT) Vit D, 25-Hydroxy 7.1(L) 30.0 - 100.0 ng/mL 10/08/2024 11:36 AM EDT [facility] Comment: Vitamin D deficiency has been defined by the [place] [employer] (IOM) and an Endocrine Society [...] Performing Organization Address City/[facility]/ZIP Co de Phone Number [facility] [address] [facility]. [address] * Iron Studies (Iron + TIBC) (10/08/2024 10:25 AM EDT) Iron 81 50 - 212 ug/dL 10/08/2024 11:23 AM EDT [facility] % Iron Saturation SEE COMMENT 15.0 - 55.0 % 10/08/2024 11:23 AM EDT [facility] Comment:Unable to calculate result because contributing result outside reportable range.. TIBC SEE COMMENT 261 - 462 ug/dL 10/08/2024 11:23 AM EDT [facility] Comment:Unable to calculate result because contributing result outside reportable range.. Serum 10/08/2024 10:2 5 AM EDT 10/08/2024 10:49 AM EDT Gerri Peterson MD LAB BLOOD ORDERABLES Final Resu lt Performing Organization Address [facility]/ZIP Co de Phone Number [facility] [address] * (ABNORMAL) Ferritin (10/08/2024 10:25 AM EDT) Ferritin 706.9(H) 23.9 - 336.2 ng/mL 10/08/2024 11:35 AM EDT [facility] Serum 10/08/2024 10:2 5 AM EDT 10/08/2024 10:49 AM EDT Gerri Peterson MD LAB BLOOD ORDERABLES Final Resu lt [facility] [address] [facility]. [address] * QuantiFERON TB2 Ag (10/08/2024 10:25 AM EDT) QuantiFERON TB2 Ag Value 0.07 10/10/2024 10:41 AM EDT [facility] Plasma 10/08/2024 10:2 5 AM EDT 10/08/2024 11:05 AM EDT Gerri Peterson MD LAB BLOOD ORDERABLES Final Resu lt [facility] [address] [facility]. [address] * QuantiFERON TB1 Ag (10/08/2024 10:25 AM EDT) QuantiFERON TB1 Ag Value 0.06 10/10/2024 10:41 AM EDT [facility] Plasma 10/08/2024 10:2 5 AM EDT 10/08/2024 11:05 AM EDT Result [facility] Gerri Peterson MD LAB BLOOD ORDERABLES Final Resu lt Performing Organization Address City/[facility]/ZIP Co de Phone Number [facility] [address] [facility]. [address] * QuantiFERON Nil (10/08/2024 10:25 AM EDT) QuantiFERON Nil 0.06 10:41 AM EDT [facility] Plasma 10/08/2024 10:2 5 AM EDT 10/08/2024 11:05 AM EDT Result [facility] Gerri Peterson MD LAB BLOOD ORDERABLES Final Resu lt [facility] [address] [facility]. [address] * QuantiFERON Mitogen (10/08/2024 10:25 AM EDT) QuantiFERON Interpretation Negative Negative 10/10/2024 10:41 AM EDT [facility] Comment:Negative result geovanny cates M. tuberculosis infection is NOT likely. Negative results do not preclude tuberculosis infection (especially in immunosuppressed patients). Negative results have a TB antigen minus Nil value less than 0.35 IU/mL. In cases with high suspicion of disease, retesting or additional testing with medical evaluation may be useful. QuantiFERON Mitogen 4.87 10/10 10:41 AM EDT [facility] Plasma 10/08/2024 10:2 5 AM EDT 10/08/2024 11:05 AM EDT Narrative [facility] - 10/10/2024 10:41 AM EDT [...] LAB BLOOD ORDERABLES Final Resu lt [facility] [address] * Reticulocyte Count, Auto (10/08/2024 7:41 AM EDT) Retic Ct Pct 1.35 0.50 - 2.00 % 10/08/2024 9:12 AM EDT [facility] Retic Ct Abs 26,190 25,000 - 90,000 /uL 10/08/2024 9:14 AM EDT [facility] Immature Retic Fract 0.37 0.09 - 0.56 10/08/2024 9:12 AM EDT [facility] Whole Blood 10/08/2024 7:41 AM EDT 10/08/2024 8:51 AM EDT Angie Blanchard MD LAB BLOOD ORDERABLES Final Res ult [facility] [address] [facility]. [address] * (ABNORMAL) Haptoglobin (10/08/2024 7:41 AM EDT) Haptoglobin <30(L) 44 - 215 mg/dL 10/08/2024 8:53 AM EDT [facility] Serum 10/08/2024 7:41 AM EDT 10/08/2024 7:51 AM EDT Eileen Schroeder MD, PhD LAB BLOOD ORDERABLES Final Result [facility] [address] [place] [address], [facility] * (ABNORMAL) CBC - Post Transfusion (10/08/2024 7:41 AM EDT) WBC 3.7(L) 3.8 - 10.8 10E3/uL 10/08/2024 8:34 AM EDT [facility] RBC 1.94(L) 4.20 - 5.80 10E6/uL 10/08/2024 8:34 AM EDT [facility] Hemoglobin 7.1(L) 13.2 - 17.1 g/dL 10/08/2024 8:34 AM EDT [facility] Hematocrit 20.0(L) 38.5 - 50.0 % 10/08/2024 8:34 AM EDT [facility] MCV 103.1(H) 80.0 - 100.0 fL 10/08/2024 8:34 AM EDT [facility] MCH 36.5(H) 27.0 - 33.0 pg 10/08/2024 8:34 AM EDT [facility] MCHC 35.4 32.0 - 36.0 g/dL 10/08/2024 8:34 AM EDT [facility] RDW 17.2(H) 11.0 - 15.0 % 10/08/2024 8:34 AM EDT [facility] Platelets 37(L) 140 - 400 10E3/uL 10/08/2024 8:34 AM EDT [facility] Comment: Specimen checked for clots. None detected. Slide Reviewed for PLT Clumps. None Seen. _Platelet Morphology Normal _Platelets Appear Decreased MPV 8.7 7.5 - 11.5 fL 10/08/2024 8:34 AM EDT [facility] Whole Blood 10/08/2024 7:41 AM EDT 10/08/2024 7:52 AM EDT Narrative [facility] - 10/08/2024 8:34 AM EDT Post-transfusion Eileen Schroeder MD, PhD LAB BLOOD ORDERABLES Final Result [facility] [address] * Antibody Screen (10/08/2024 7:41 AM EDT) Antibody Screen Negative 10/08/2024 8:26 AM EDT [facility] Blood 10/08/2024 7:41 AM EDT 10/08/2024 7:57 AM EDT Narrative [facility] - 10/08/2024 8:32 AM EDT Testing performed by [facility] Transfusion Service Eileen Schroeder MD, PhD BLOOD BANK TEST ORDER PAL Final Result Performing Organization Address City/[facility]/ZIP Co de Phone Number [facility] [address] [facility]. [address] * ABO/Rh (10/08/2024 7:41 AM EDT) ABO Grouping O 10/08/2024 8:14 AM EDT [facility] Rh Type Positive 10/08/2024 8:14 AM EDT [facility] Blood 10/08/2024 7:41 AM EDT 10/08/2024 7:57 AM EDT Eileen Schroeder MD, PhD BLOOD BANK TEST ORDER PAL Final Result [facility] [address] * (ABNORMAL) Lactate dehydrogenase (10/08/2024 5:36 AM EDT) LD 102(L) 110 - 270 U/L 10/08/2024 8:20 AM EDT [facility] Plasma 10/08/2024 5:36 AM EDT 10/08/2024 7:58 AM EDT Angie Blanchard MD LAB BLOOD ORDERABLES Final Res ult Performing Organization Address [facility] Co de Phone Number [facility] [address] [facility]. [address] * (ABNORMAL) Protime-INR (10/08/2024 5:36 AM EDT) Protime 26.9(H) 12.1 - 15.1 seconds 10/08/2024 6:11 AM EDT [facility] INR 2.4(H) 0.9 - 1.1 10/08/2024 6:11 AM EDT [facility] Comment: RECOMMENDED THERAPEUTIC RANGES USING INR : Stable oral anticoagulant therapy: 2.0 - 3.0 Mechanical prosthetic heart valve: 2.5 - 3.5 Recurrent acute myocardial infarction: 2.5 - 3.5 Plasma 10/08/2024 5:36 AM EDT 10/08/2024 5:52 AM EDT Eileen Schroeder MD, PhD LAB BLOOD ORDERABLES Final Result Performing Organization Address [facility] Co de Phone Number [facility] [address] [facility]. [address] * (ABNORMAL) Hepatic Function Panel (10/08/2024 5:36 AM EDT) Total Bilirubin 7.7(H) 0.0 - 1.5 mg/dL 10/08/2024 6:25 AM EDT [facility] Bilirubin, Direct 4.28(H) 0.00 - 0.40 mg/dL 10/08/2024 6:25 AM EDT [facility] AST 34 13 - 39 U/L 10/08/2024 6:25 AM EDT [facility] ALT 16 7 - 52 U/L 10/08/2024 6:25 AM EDT [facility] Alkaline Phosphatase 103 36 - 125 U/L 10/08/2024 6:25 AM EDT [facility] Total Protein 4.7(L) 6.4 - 8.9 g/dL 10/08/2024 6:25 AM EDT [facility] Albumin 3.5 3.5 - 5.7 g/dL 10/08/2024 6:25 AM EDT [facility] Bilirubin, Indirect 3.42(H) 0.00 - 1.10 mg/dL 10/08/2024 6:25 AM EDT [facility] Plasma 10/08/2024 5:36 AM EDT 10/08/2024 5:52 AM EDT us Eileen Schroeder MD, PhD LAB BLOOD ORDERABLES Final Result Performing Organization Address [facility]/ZIP Co de Phone Number [facility] [address] * Magnesium (10/08/2024 5:36 AM EDT) Magnesium 1.9 1.5 - 2.5 mg/dL 10/08/2024 6:25 AM EDT [facility] Plasma 10/08/2024 5:36 AM EDT 10/08/2024 5:52 AM EDT Eileen Schroeder MD, PhD LAB BLOOD ORDERABLES Final Result [facility] [address] * (ABNORMAL) Renal Function Panel w/EGFR (10/08/2024 5:36 AM EDT) Sodium 135 133 - 146 mmol/L 10/08/2024 6:25 AM EDT [facility] Potassium 3.2(L) 3.5 - 5.3 mmol/L 10/08/2024 6:25 AM EDT [facility] Chloride 106 98 - 110 mmol/L 10/08/2024 6:25 AM EDT [facility] CO2 17(L) 21 - 33 mmol/L 10/08/2024 6:25 AM EDT [facility] Anion Gap 12 3 - 16 mmol/L 10/08/2024 6:25 AM EDT [facility] BUN 61(H) 7 - 25 mg/dL 10/08/2024 6:25 AM EDT [facility] Creatinine 3.10(H) 0.60 - 1.30 mg/dL 10/08/2024 6:25 AM EDT [facility] Glucose 106(H) 70 - 100 mg/dL 10/08/2024 6:25 AM EDT [facility] Calcium 9.0 8.6 - 10.3 mg/dL 10/08/2024 6:25 AM EDT [facility] Phosphorus 4.0 2.1 - 4.7 mg/dL 10/08/2024 6:25 AM EDT [facility] Albumin 3.5 3.5 - 5.7 g/dL 10/08/2024 6:25 AM EDT [facility] Osmolality, Calculated 298 278 - 305 mOsm/kg 10/08/2024 6:25 AM EDT [facility] EGFR 25 10/08/2024 6:25 AM EDT [facility] Comment:As of 2021, the estimated [...] EDT 10/08/2024 5:52 AM EDT us Eileen Urbano Albino MD, PhD LAB BLOOD ORDERABLES Final Result [facility] [address] [place] [address], [facility] * (ABNORMAL) CBC (10/08/2024 5:36 AM EDT) WBC 3.2(L) 3.8 - 10.8 10E3/uL 10/08/2024 6:41 AM EDT [facility] RBC 1.86(L) 4.20 - 5.80 10E6/uL 10/08/2024 6:41 AM EDT [facility] Hemoglobin 6.9(L) 13.2 - 17.1 g/dL 10/08/2024 6:41 AM EDT [facility] Hematocrit 18.9(L) 38.5 - 50.0 % 10/08/2024 6:41 AM EDT [facility] MCV 101.6(H) 80.0 - 100.0 fL 10/08/2024 6:41 AM EDT [facility] MCH 36.9(H) 27.0 - 33.0 pg 10/08/2024 6:41 AM EDT [facility] MCHC 36.3(H) 32.0 - 36.0 g/dL 10/08/2024 6:41 AM EDT [facility] RDW 17.0(H) 11.0 - 15.0 % 10/08/2024 6:41 AM EDT [facility] Platelets 34(L) 140 - 400 10E3/uL 10/08/2024 6:41 AM EDT [facility] Comment: Specimen checked for clots. None detected. Slide Reviewed for PLT Clumps. None Seen. Platelet Estimate Decreased 10/08/2024 6:41 AM EDT [facility] MPV 8.4 7.5 - 11.5 fL 10/08/2024 6:41 AM EDT [facility] Whole Blood 10/08/2024 5:36 AM EDT 10/08/2024 5:53 AM EDT Narrative [facility] - 10/08/2024 6:41 AM EDT Peripheral blood smear was scanned per review criteria approved by the laboratory medical appliance maker. Eileen Schroeder MD, PhD LAB BLOOD ORDERABLES Final Result [facility] [address] [facility]. [address] * Vancomycin, random (10/08/2024 5:36 AM EDT) Vancomycin Random 16.0 ug/mL 10/08/2024 6:20 AM EDT [facility] Comment:Reference range not established for this test. Plasma 10/08/2024 5:36 AM EDT 10/08/2024 5:52 AM EDT us Jodi FreireD LAB BLOOD ORDERABLES Final Result Performing Organization Address City/[facility]/ZIP Co de Phone Number [facility] [address] [facility]. [address] * Urine Drug Confirmation (10/07/2024 10:50 PM EDT) BARBITURATES NOT PRESENT 10/09/2024 1:33 PM EDT [facility] BENZODIAZEPINES PRESENT 1:33 PM EDT [facility] Nordiazepam 3 ng/mL 10/09/2024 1:33 PM EDT [facility] Temazepam 6 ng/mL 10/09/2024 1:33 PM EDT [facility] CANNABINOIDS NOT PRESENT 10/09/2024 1:33 PM EDT [facility] GROUT MACHINE TENDER STIMULANTS NOT PRESENT 1:33 PM EDT [facility] OPIOID ANALGESICS PRESENT 025 1:33 PM EDT [facility] Oxycodone 300 ng/mL 10/09/2024 1:33 PM EDT [facility] Oxymorphone 32 ng/mL 10/09/2024 1:33 PM EDT [facility] Tramadol >1000 ng/mL 10/09/2024 1:33 PM EDT [facility] OPIOID ANTAGONISTS NOT PRESENT 10/09 1:33 PM EDT [facility] SEDATIVES/MUSCLE RELAXANTS NOT PRESENT 10/09/2024 1:33 PM EDT [facility] TRICYCLIC ANTIDEPRESSANTS NOT PRESENT 10/09/2024 1:33 PM EDT [facility] Urine 10/07/2024 10:5 0 PM EDT 10/08/2024 3:00 AM EDT Gerri Peterson MD URINE ORDERABLES Final Result Performing Organization Address [facility]/ZIP Co de Phone Number [facility] [address] * Giardia Cryptosporidium Antigens (10/07/2024 10:50 PM EDT) Cryptosporidium Ag Negative Negative 2024 7:59 AM EDT [facility] Giardia Ag Negative Negative 10/08/2024 7:59 AM EDT [facility] Comment: Detection of Giardia and Cryptosporidium antigen is more sensitive and specific than microscopy. Because antigens are shed continuously, repeat testing is rarely warranted. Feces 10/07/2024 10:5 0 PM EDT 10/08/2024 1:53 AM EDT Comment:F Bisi Hernandez DO MICROBIOLOGY - GENERAL ORDERABLE S Final Result Performing Organization Address [facility] Co de Phone Number [facility] [address] [place] [address]. [address] * (ABNORMAL) Urine Drug Screen Reflex to Confirmation (10/07/2024 10:50 PM EDT) Amphetamine, 500 ng/mL Cutoff Negative Negative 10/08/2024 3:00 AM EDT [facility] Barbiturates UR, 300 ng/mL Cutoff Negative Negative 10/08/2024 3:00 AM EDT [facility] Buprenorphine, 5 ng/mL Cutoff Negative Negative 10/08/2024 3:00 AM EDT [facility] Benzodiazepines UR, 300 ng/mL Cutoff Negative Negative 10/08/2024 3:00 AM EDT [facility] Cocaine UR, 300 ng/mL Cutoff Negative Negative 10/08/2024 3:00 AM EDT [facility] Methadone, UR, 300 ng/mL Cutoff Negative Negative 10/08/2024 3:00 AM EDT [facility] Opiates UR, 300 ng/mL Cutoff Negative Negative 10/08/2024 3:00 AM EDT [facility] Oxycodone, 100 ng/mL Cutoff Presumptive Positive(A) Negative 10/08/2024 3:00 AM EDT [facility] Tricyclic Antidepressants, 300 ng/mL Cutoff Negative Negative 10/08/2024 3:00 AM EDT [facility] Comment:This test has been d eveloped and its performance characteristics determined by [facility] which is certified under [...] Cutoff Negative Negative 10/08/2024 3:00 AM EDT [facility] Comment:This is a screening method only and may be associated with false positive and/or false negative results. Results are not definitive without additional confirmatory testing by mass spectrometry. Fentanyl, 2 ng/mL Cutoff Negative Negative 10/08/2024 3:00 AM EDT [facility] Comment:This test has been d eveloped and its performance characteristics determined by [facility] which is certified under [...] PM EDT 10/08/2024 2:08 AM EDT Narrative [facility] - 10/08/2024 3:00 AM EDT CONFIRMATION TO FOLLOW Gerri Peterson MD URINE ORDERABLES Final Result [facility] [address] [place] [address], [facility] * Comprehensive Drug Screen (10/07/2024 10:50 PM EDT) Creatinine, Ur CANCELED mg/dL 10/08/2024 7:09 AM EDT [facility] Comment:The released value 8 7.30 was canceled by YAQUELIN on 10/08/2024 07:09 BARBITURATES CANCELED [facility] Butalbital CANCELED [facility] Phenobarbital CANCELED [facility] Secobarbital CANCELED [facility] BENZODIAZEPINES CANCELED [facility] Alprazolam CANCELED [facility] Clonazepam CANCELED [facility] Diazepam CANCELED [facility] Alpha-Hydroxyalprazo mcknight CANCELED [facility] Lorazepam CANCELED [facility] Midazolam [facility]ELED [facility] Nordiazepam CANCELED [facility] Oxazepam CANCELED [facility] Temazepam CANCELED [facility] CANNABINOIDS CANCELED [facility] THC-COOH CANCELED [facility] GROUT MACHINE TENDER STIMULANTS CANCELED [facility] Cocaine Metabolite(benzoylec gonine) CANCELED [facility] Amphetamine CANCELED [facility] Methamphetamine CANCELED [facility] MDA CANCELED [facility] MDEA CANCELED [facility] Phencyclindine (PCP) CANCELED [facility] OPIOID ANALGESICS [facility] Heroin Metabolite(6-RAMONA) CANCELED [facility] Codeine [facility]ELED [facility] Morphine [facility]CELED [facility] Hydrocodone CANCELED [facility] Hydromorphone CANCELED [facility] Oxycodone [facility]CELED [facility] Oxymorphone CANCELED [facility] Meperidine [facility]ELED [facility] Normeperidine CANCELED [facility] Methadone [facility]CELED [facility] Methadone Metabolite (EDDP) [facility]CELED [facility] Tramadol [facility]ELED [facility] Fentanyl [facility]ELED [facility] Norfentanyl CANCELED [facility] Sufentanil [facility]CELED [facility] OPIOID ANTAGONISTS CANCELED [facility] Buprenorphine CANCELED [facility] Norbuprenorphine [facility]ELED [facility] Naltrexone [facility] Naloxone [facility] SEDATIVES/MUSCLE RELAXANTS [facility]ED [facility] Carisoprodol [facility]CELED [facility] Meprobamate [facility] TRICYCLIC ANTIDEPRESSANTS [facility] Amitriptyline [facility] Clomipramine [facility] Desipramine [facility] Doxepin [facility] Imipramine [facility] Nortriptyline [facility] Urine Creatinine CANCELED mg/dL [facility] Nitrite [facility] Glutaraldehyde [facility]ED [facility] pH CANCELED 10/08/2024 7:09 AM EDT [facility] Comment:The released value 5 .6 was canceled by MABLEE on 10/08/2024 07:09 Specific [place] CANCELED 10/09/19 7:09 AM EDT [facility] Comment:The released value 1 .009 was canceled by MABLEE on 10/08/2024 07:09 Bleach CANCELED [facility] Pyridinium Chlorochromate CANCELED [facility] Urine 10/07/2024 10:5 0 PM EDT 10/08/2024 2:07 AM EDT Narrative [facility] - 10/08/2024 7:09 AM EDT See accn [id number] Gerri Peterson MD URINE ORDERABLES Edited Result - Final Performing Organization Address City/State/[facility] Co de Phone Number [facility] [address] * Ova and Parasite Comprehensive w/ Giardia/Crypto (10/07/2024 10:50 PM EDT) O & P Method: Concentration and Trichrome Stain [facility] Results No Amoeba, Ova, Or Parasites Seen. -- O and P examination of additional specimens is recommended only for symptomatic patients, immunosuppressed patients or those with an appropriate travel history. [facility] Feces FECES / Unknown 10/07/2024 1 0:50 PM EDT 10/08/2024 1:53 AM EDT Comment:F Bisi Hernandez DO MICROBIOLOGY - GENERAL ORDERABLE S Final Result Performing Organization Address City/[facility]/ZIP Co de Phone Number [facility] [address] * Enteric Pathogen Panel (10/07/2024 10:50 PM EDT) Campylobacter Group (C. ecoli, C. jejuni, C. trino) Not Detected Not Detected 10/08/2024 4:40 AM EDT [facility] Salmonella species Not Detected Not Detected 10/08/2024 4:40 AM EDT [facility] Shigella species Not Detected Not Detected 10/08/2024 4:40 AM EDT [facility] Vibrio Group (Vibrio cholerae, Vibrio parahaemolyticus) Not Detected Not Detected 10/08/2024 4:40 AM EDT [facility] Yersinia enterocolitica Not Detected Not Detected 10/08/2024 4:40 AM EDT [facility] Shiga toxin 1 Not Detected Not Detected 10/08/2024 4:40 AM EDT [facility] Shiga toxin 2 Not Detected Not Detected 10/08/2024 4:40 AM EDT [facility] Norovirus Not Detected Not Detected 10/08/2024 4:40 AM EDT [facility] Rotavirus Not Detected Not Detected 10/08/2024 4:40 AM EDT [facility] Comment: The Enteric Pathogen Panel [...] Performing Organization Address City/[facility]/ZIP Co de Phone Number [facility] [address] * Hepatitis C Antibody (10/07/2024 6:38 PM EDT) HCV Ab Nonreactive Nonreactive 10/07/2024 7:56 PM EDT [facility] Comment:Health Department no tified in accordance with reportable infectious disease guidelines. Serum 10/07/2024 6:38 PM EDT 10/07/2024 6:52 PM EDT [facility] - 10/07/2024 7:56 PM EDT Antibodies to HCV not detected; does not exclude the possibility of exposure to HCV. Gerri Peterson MD LAB BLOOD ORDERABLES Final Resu lt Performing Organization Address City/[facility]/ZIP Co de Phone Number [facility] [address] [facility]. [address] * Hepatitis B Surface Antibody, Quantitati (10/07/2024 6:38 PM EDT) Hep B S Ab Nonreactive Nonreactive 10/07/2024 8:00 PM EDT [facility] HBSAB NUMBER 7.88 0.00 - 7.99 mIU/mL 10/07/2024 8:00 PM EDT [facility] Serum 10/07/2024 6:38 PM EDT 10/07/2024 6:52 PM EDT [facility] - 10/07/2024 8:00 PM EDT Individual is considered not immune to HBV infection. Gerri Peterson MD LAB BLOOD ORDERABLES Final Resu lt [facility] [address] [facility]. [address] * Hepatitis B surface antigen (10/07/2024 6:38 PM EDT) Hep B Surface Ag Nonreactive Nonreactive 10/07/2024 7:51 PM EDT [facility] Comment:Health Department no tified in accordance with reportable infectious disease guidelines. Serum 10/07/2024 6:38 PM EDT 10/07/2024 6:52 PM EDT [facility] - 10/07/2024 7:51 PM EDT Specimen is considered negative for HBsAg. Result [facility] Gerri Peterson MD LAB BLOOD ORDERABLES Final Resu lt Performing Organization Address City/[facility]/ZIP Co de Phone Number [facility] [address] [facility]. [address] * Hepatitis A Antibody Total (10/07/2024 6:38 PM EDT) Anti-HAV Total (IgG + IgM) Nonreactive 10/07/2024 7:53 PM EDT [facility] Serum 10/07/2024 6:38 PM EDT 10/07/2024 6:52 PM EDT [facility] - 10/07/2024 7:53 PM EDT HAV antibodies not detected Gerri Peterson MD LAB BLOOD ORDERABLES Final Resu lt Performing Organization Address [facility] Co de Phone Number [facility] [address] [facility]. [address] * Hepatitis A IgM (10/07/2024 6:38 PM EDT) Pathologist [facility] Hep A IgM Nonreactive Nonreactive 10/07/2024 7:46 PM EDT [facility] Serum 10/07/2024 6:38 PM EDT 10/07/2024 6:52 PM EDT [facility] - 10/07/2024 7:46 PM EDT IgM anti-HAV not detected. Does not exclude the possibility of exposure to or infection with HAV. Levels of IgM anti-HAV may be below the cut-off in early infection. Result [facility] Gerri Peterson MD LAB BLOOD ORDERABLES Final Resu lt Performing Organization Address [facility]/ZIP Co de Phone Number [facility] [address] [facility]. [address] * (ABNORMAL) Lipid Profile (10/07/2024 6:37 PM EDT) Pathologist [facility] Non-HDL Cholesterol, Calculated See Note 0 - 129 mg/dL 10/07/2024 7:42 PM EDT [facility] Comment: Desirable: < 130 mg/dL Above Desirable: 130-159 mg/dL Borderline High: 160-189 mg/dL High: 190-219 mg/dL Very High: > 219 mg/dL Unable to calculate result either because contributing result(s) are outside of reportable range or are not available. Cholesterol, Total <25 0 - 200 mg/dL 10/07/2024 7:42 PM EDT [facility] Triglycerides 30 10 - 149 mg/dL 10/07/2024 7:42 PM EDT [facility] HDL 4(L) 60 - 92 mg/dL 10/07/2024 7:42 PM EDT [facility] Comment: LIPID PROFILE INTERPRETATION CHOLESTEROL,TOTAL(mg/dL) [...] Cholesterol See Note mg/dL 7:42 PM EDT [facility] Comment:Unable to calculate result either because contributing result(s) are outside of reportable range or are not available. Plasma 10/07/2024 6:37 PM EDT 10/07/2024 7:06 PM EDT Narrative [facility] - 10/07/2024 7:42 PM EDT LDL cholesterol calculated using the Friedewald equation. us Gerri Peterson MD LAB BLOOD ORDERABLES Final Resu lt [facility] [address] [place], [place] [id number] [place] [address] * (ABNORMAL) Alpha 1 Antitrypsin AAT Quant & Mutation (10/07/2024 6:37 PM EDT) A-1 Antitrypsin 99(L) 101 - 187 mg/dL 10/09/2024 4:28 AM EDT [facility] A-1 Antitrypsin Pheno Comment 10/10/2024 4:05 PM EDT [facility] Comment: A1A Phenotype is consistent with a heterozygous phenotype consisting of one M (normal) allele and one allele that cannot be identified at this time. The unknown allele is not consistent with Z (deficient), S (deficient), or F (deficient). MM Phenotype is considered to be normal , producing normal serum levels of exvwg-[id number] inhibitor and not associated with clinical disease. [...] - 10/10/2024 4:08 PM EDT PERFORMED AT: [facility] [id number] PREMIX OPERATOR CONCENTRATE: Bassam Khalil, PhD PHONE: [phone] PERFORMED AT: [facility] [address] [id number] PREMIX OPERATOR CONCENTRATE: Mandy Abdul MD PHONE: [phone] Gerri Peterson MD LAB BLOOD ORDERABLES Final Resu lt [facility] [address] * (ABNORMAL) CMV IgG Antibody (10/07/2024 6:37 PM EDT) CMV IgG Positive(A ) Negative 10/07/2024 8:26 PM EDT [facility] CMV IGG NUM 8.40(H) 0.00 - 0.59 U/mL 10/07/2024 8:26 PM EDT [facility] Serum 10/07/2024 6:37 PM EDT 10/07/2024 6:50 PM EDT Gerri Peterson MD LAB BLOOD ORDERABLES Final Resu lt Performing Organization Address City/[facility]/ZIP Co de Phone Number [facility] [address] [facility]. [address] * HIV-1 and HIV-2 Antibodies w Reflex (10/07/2024 6:37 PM EDT) HIV 1+2 AB/AGN Nonreactive Nonreactive 10/07/2024 7:54 PM EDT [facility] Serum 10/07/2024 6:37 PM EDT 10/07/2024 7:06 PM EDT Narrative [facility] - 10/07/2024 7:54 PM EDT \HIVRNR Gerri Peterson MD LAB BLOOD ORDERABLES Final Resu lt [facility] [address] [facility]. [address] * TSH (Thyroid Stimulating Hormone) (10/07/2024 6:37 PM EDT) TSH 0.81 0.45 - 4.12 uIU/mL 10/07/2024 8:17 PM EDT [facility] Serum 10/07/2024 6:37 PM EDT 10/07/2024 6:50 PM EDT Gerri Peterson MD LAB BLOOD ORDERABLES Final Resu lt Performing Organization Address [facility]/State/[facility] Co de Phone Number [facility] [address] * Katie-Watkins virus early antigen antibody, IgG (10/07/2024 6:37 PM EDT) Pathologist [facility] EBV Early Antigen Ab, IgG <9.0 0.0 - 8.9 U/mL 10/09/2024 2:16 PM EDT [facility] Comment: Negative < 9.0 Equivocal 9.0 - 10.9 Positive >10.9 Serum Frozen 10/07/2024 6:37 PM EDT 10/09/2024 3:07 PM EDT Narrative [facility] - 10/09/2024 3:07 PM EDT PERFORMED AT: [facility] [id number] PREMIX OPERATOR CONCENTRATE: Bassam Khalil, PhD PHONE: [phone] Gerri Peterson MD LAB BLOOD ORDERABLES Final Resu lt Performing Organization Address [facility] de Phone Number [facility] [address] * (ABNORMAL) Varicella zoster antibody, IgG (10/07/2024 6:37 PM EDT) Pathologist [facility] Varicella IgG Positive( A) Negative S/CO 10/07/2024 8:34 PM EDT [facility] Comment:Result indicates the presence of detectable VZV IgG antibodies. A positive result is generally indicative of exposure to the pathogen or administration of specific immunoglobulins, but it is no indication of active infection or stage of disease. This test is not approved for determining vaccine-induced immunity to varicella zoster virus. VZV NUM 6.76(H) 0.00 - 0.99 S/CO 10/07/2024 8:34 PM EDT [facility] Serum 10/07/2024 6:37 PM EDT 10/07/2024 6:50 PM EDT Gerri Peterson MD LAB BLOOD ORDERABLES Final Resu lt Performing Organization Address City/[facility]/ZIP Co de Phone Number [facility] [address] * Toxoplasma gondii antibody, IgG (10/07/2024 6:37 PM EDT) Toxoplasma Gondii IgG <3.0 0.0 - 7.1 IU/mL 10/09/2024 7:53 AM EDT [facility] Comment: Negative <7.2 Equivocal 7.2 - 8.7 Positive >8.7 Serum 10/07/2024 6:37 PM EDT 10/09/2024 8:07 AM EDT Narrative [facility] - 10/09/2024 8:07 AM EDT PERFORMED AT: [facility] [id number] PREMIX OPERATOR CONCENTRATE: Bassam Khalil, PhD PHONE: [phone] Gerri Peterson MD LAB BLOOD ORDERABLES Final Resu lt Performing Organization Address [facility] Co de Phone Number [facility] [address] * Syphilis Screening (Trepia) (10/07/2024 6:37 PM EDT) Treponema Pallidum Negative Negative 10/07/2024 8:27 PM EDT [facility] Comment: No serological evidence of infection with Treponema pallidum (incubating or early primary syphilis cannot be excluded). Serum 10/07/2024 6:37 PM EDT 10/07/2024 6:50 PM EDT Gerri Peterson MD LAB BLOOD ORDERABLES Final Resu lt Performing Organization Address City/[facility]/ZIP Co de Phone Number [facility] [address] [facility]. [address] * Strongyloides Ab (10/07/2024 6:37 PM EDT) Strongyloides Ab Negative Negative 10/11/19 11:51 AM EDT [facility] Serum 10/07/2024 6:37 PM EDT 10/10/2024 12:07 PM EDT Narrative [facility] - 10/10/2024 12:07 PM EDT PERFORMED AT: [facility] [id number] PREMIX OPERATOR CONCENTRATE: Mandy Abdul MD PHONE: [phone] us Gerri Peterson MD LAB BLOOD ORDERABLES Final Resu lt [facility] [address] * Phosphatidylethanol Confirmation, B (10/07/2024 6:37 PM EDT) PETH 16:0/18.1 (POPETH) <10 Cutoff: 10 ng/mL 10/10/2024 10:42 AM EDT [facility] Comment: Phosphatidylethanol (PEth) homologues result [...] Cutoff: 10 ng/mL 10/10/2024 10:42 AM EDT [facility] Comment: PEth 16:0/18:2 (PLPEth) Reference ranges are not well established PEth Interpretation Negative. 10/10 10:42 AM EDT [facility] Comment: ADDITIONAL INFORMATION This report is intended for use in clinical monitoring and management of patients. It is not intended for use in employment-related testing. This test was developed and its performance characteristics determined by [facility] in a manner consistent with CLIA requirements. This test has not been cleared or approved by the U.S. Food and Drug Administration. Test Performed by: [facility] [address] [place] [address] Die Keeper: Kathy Ortiz Ph.D.; CLIA# [id number] Whole Blood 10/07/2024 6:37 PM EDT 10/10/2024 10:42 AM EDT us Gerri Peterson MD LAB BLOOD ORDERABLES Final Resu lt [facility] [address] [facility] [place] [address], [facility] * (ABNORMAL) MMR(IgG) Panel (Measles, Mumps, Rubella) (10/07/2024 6:37 PM EDT) Mumps IgG Positive 10/07/2024 8:26 PM EDT [facility] MUMPS IGG NUM 77.80(H) 0.0 - 8.9 U/mL 10/07/2024 8:26 PM EDT [facility] Rubella IgG Scr Positive 10/07/2024 8:28 PM EDT [facility] RUB NUM 3.04(H) 0.00 - 0.89 INDEX 10/07/2024 8:28 PM EDT [facility] Rubeola Ab, IgG Positive 10/07/2024 8:26 PM EDT [facility] RUB IGG NUM 192.00(H) 0.00 - 13.40 U/mL 10/07/2024 8:26 PM EDT [facility] Serum 10/07/2024 6:37 PM EDT 10/07/2024 6:50 PM EDT Narrative [facility] - 10/07/2024 8:28 PM EDT [...] MD LAB BLOOD ORDERABLES Final Resu lt [facility] [address] * IgA (10/07/2024 6:37 PM EDT) IgA 227.0 70.0 - 400.0 mg/dL 10/08/2024 11:07 AM EDT [facility] Comment:Please interpret the se findings in conjunction with clinical findings, protein electrophoresis, and immunotyping/immunofixation results. Serum 10/07/2024 6:37 PM EDT 10/07/2024 6:50 PM EDT Gerri Peterson MD LAB BLOOD ORDERABLES Final Resu lt [facility] [address] [facility]. [address] * Ethanol, Serum (10/07/2024 6:37 PM EDT) Ethanol <10 0 - 10 mg/dL 10/07/2024 8:36 PM EDT [facility] Serum 10/07/2024 6:37 PM EDT 10/07/2024 6:50 PM EDT Gerri Peterson MD LAB BLOOD ORDERABLES Final Resu lt [facility] [address] [facility]. [address] * ABO/Rh - Second (10/07/2024 6:37 PM EDT) ABO Grouping O 10/07/2024 7:16 PM EDT [facility] Rh Type Positive 10/07/2024 7:16 PM EDT [facility] Blood 10/07/2024 6:37 PM EDT 10/07/2024 6:56 PM EDT Narrative [facility] - 10/07/2024 7:18 PM EDT This is not a duplicate order. It is required that ABO be drawn twice for LIVER TRANSPLANT Gerri Peterson MD BLOOD BANK TEST ORDERABLES Denisse l Result [facility] [address] [facility]. [address] * ABO/Rh- Initial (10/07/2024 6:37 PM EDT) ABO Grouping O 10/07/2024 7:59 PM EDT [facility] Rh Type Positive 10/07/2024 7:59 PM EDT [facility] Blood 10/07/2024 6:37 PM EDT 10/07/2024 7:25 PM EDT Gerri Peterson MD BLOOD BANK TEST ORDERABLES Denisse l Result Performing Organization Address [facility] Co de Phone Number [facility] [address] [facility]. [address] * X-ray Mandible minimum 4-views (10/07/2024 [...] visualized. Procedure Note Diana Devlin MD - 05/28/2025 EXAM: XR MANDIBLE MINIMUM 4-VIEWS INDICATION: r/o [...] EXAM: US ABDOMEN COMPLETE EXAM: US DUPLEX [id number] COMPLETE INDICATION: elevated bilirubin COMPARISON: Ultrasound and [...] EXAM: US ABDOMEN COMPLETE EXAM: US DUPLEX [id number] COMPLETE INDICATION: elevated bilirubin COMPARISON: Ultrasound and [...] US ORDERABLES Final Result * US Duplex Xxt-Drj-Qsklynk Comp (10/07/2024 3:48 PM EDT) Anatomical Region [...] EXAM: US ABDOMEN COMPLETE EXAM: US DUPLEX [id number] COMPLETE INDICATION: elevated bilirubin COMPARISON: Ultrasound and [...] EXAM: US ABDOMEN COMPLETE EXAM: US DUPLEX [id number] COMPLETE INDICATION: elevated bilirubin COMPARISON: Ultrasound and [...] PM EDT us Bisi Hernandez DO [facility] US ORDERABLES Final Result * CARISA Rhythm [...] MD, PhD LAB BLOOD ORDERABLES Final Result [facility] [address] [facility]. [address] * (ABNORMAL) Hepatic Function Panel (10/07/2024 6:00 AM EDT) Total Bilirubin 9.7(H) 0.0 - 1.5 mg/dL 10/07/2024 7:10 AM EDT [facility] Bilirubin, Direct 5.21(H) 0.00 - 0.40 mg/dL 10/07/2024 7:10 AM EDT [facility] AST 39 13 - 39 U/L 10/07/2024 7:10 AM EDT [facility] ALT 18 7 - 52 U/L 10/07/2024 7:10 AM EDT [facility] Alkaline Phosphatase 98 36 - 125 U/L 10/07/2024 7:10 AM EDT [facility] Total Protein 4.8(L) 6.4 - 8.9 g/dL 10/07/2024 7:10 AM EDT [facility] Albumin 3.6 3.5 - 5.7 g/dL 10/07/2024 7:10 AM EDT [facility] Bilirubin, Indirect 4.49(H) 0.00 - 1.10 mg/dL 10/07/2024 7:10 AM EDT [facility] Plasma 10/07/2024 6:00 AM EDT 10/07/2024 6:39 AM EDT Eileen Schroeder MD, PhD LAB BLOOD ORDERABLES Final Result Performing Organization Address [facility] de Phone Number [facility] [address] * Magnesium (10/07/2024 6:00 AM EDT) Pathologist [facility] Magnesium 1.7 1.5 - 2.5 mg/dL 10/07/2024 7:10 AM EDT [facility] Plasma 10/07/2024 6:00 AM EDT 10/07/2024 6:39 AM EDT Eileen Schroeder MD, PhD LAB BLOOD ORDERABLES Final Result Performing Organization Address [facility] Co de Phone Number [facility] [address] * (ABNORMAL) Renal Function Panel w/EGFR (10/07/2024 6:00 AM EDT) Sodium 132(L) 133 - 146 mmol/L 10/07/2024 7:10 AM EDT [facility] Potassium 3.9 3.5 - 5.3 mmol/L 10/07/2024 7:10 AM EDT [facility] Chloride 103 98 - 110 mmol/L 10/07/2024 7:10 AM EDT [facility] CO2 19(L) 21 - 33 mmol/L 10/07/2024 7:10 AM EDT [facility] Anion Gap 10 3 - 16 mmol/L 10/07/2024 7:10 AM EDT [facility] BUN 64(H) 7 - 25 mg/dL 10/07/2024 7:10 AM EDT [facility] Creatinine 3.38(H) 0.60 - 1.30 mg/dL 10/07/2024 7:10 AM EDT [facility] Glucose 111(H) 70 - 100 mg/dL 10/07/2024 7:10 AM EDT [facility] Calcium 9.1 8.6 - 10.3 mg/dL 10/07/2024 7:10 AM EDT [facility] Phosphorus 4.2 2.1 - 4.7 mg/dL 10/07/2024 7:10 AM EDT [facility] Albumin 3.6 3.5 - 5.7 g/dL 10/07/2024 7:10 AM EDT [facility] Osmolality, Calculated 293 278 - 305 mOsm/kg 10/07/2024 7:10 AM EDT [facility] EGFR 22 10/07/2024 7:10 AM EDT [facility] Comment:As of 2021, the estimated [...] M, Oilvia [place], Emerita [place], Madelyn [place], Assistant Mechanic [place], et al. A Unifying Approach for GFR Estimation: Recommendations of the NKF-ASN Task Force on Reassessing the inclusion of Race in Diagnosing Kidney Disease. Am J Kidney Dis. 2020. Plasma 10/07/2024 6:00 AM EDT 10/07/2024 6:39 AM EDT us Eileen Schroeder MD, PhD LAB BLOOD ORDERABLES Final Result [facility] [address] [place] [address], [facility] * (ABNORMAL) CBC (10/07/2024 6:00 AM EDT) WBC 3.3(L) 3.8 - 10.8 10E3/uL 10/07/2024 7:55 AM EDT [facility] RBC 2.06(L) 4.20 - 5.80 10E6/uL 10/07/2024 7:55 AM EDT [facility] Hemoglobin 7.4(L) 13.2 - 17.1 g/dL 10/07/2024 7:55 AM EDT [facility] Hematocrit 21.5(L) 38.5 - 50.0 % 10/07/2024 7:55 AM EDT [facility] MCV 104.1(H) 80.0 - 100.0 fL 10/07/2024 7:55 AM EDT [facility] MCH 35.8(H) 27.0 - 33.0 pg 10/07/2024 7:55 AM EDT [facility] MCHC 34.4 32.0 - 36.0 g/dL 10/07/2024 7:55 AM EDT [facility] RDW 17.5(H) 11.0 - 15.0 % 10/07/2024 7:55 AM EDT [facility] Platelets 35(L) 140 - 400 10E3/uL 10/07/2024 7:55 AM EDT [facility] Comment: Specimen checked for clots. None detected. Slide Reviewed for PLT Clumps. None Seen. _Platelet Morphology Normal _Platelets Appear Decreased Platelet Estimate Decreased 10/07/2024 7:55 AM EDT [facility] MPV 8.0 7.5 - 11.5 fL 10/07/2024 7:55 AM EDT [facility] Whole Blood 10/07/2024 6:00 AM EDT 10/07/2024 6:40 AM EDT Narrative [facility] - 10/07/2024 7:55 AM EDT Peripheral blood smear was scanned per review criteria approved by the laboratory medical appliance maker. Eileen Schroeder MD, PhD LAB BLOOD ORDERABLES Final Result Performing Organization Address [facility] Co de Phone Number [facility] [address] * AFP Tumor Marker (10/07/2024 6:00 AM EDT) Pathologist [facility] AFP-Tumor Marker 2.0 0.0 - 9.0 ng/mL 10/07/2024 7:11 AM EDT [facility] Serum 10/07/2024 6:00 AM EDT 10/07/2024 6:39 AM EDT [facility] - 10/07/2024 7:11 AM EDT The testing method for AFP is a chemiluminescent immunoassay manufactured by [employer] Concentrations of AFP obtained by different assay methods or kits may vary and cannot be used interchangeably. AFP results cannot be interpreted as absolute evidence of the presence or absence of malignant disease. Shila Rivera MD LAB BLOOD ORDERABLES Final Resul t Performing Organization Address City/[facility]/ZIP Co de Phone Number [facility] [address] [facility]. [address] * Vancomycin, random (10/07/2024 6:00 AM EDT) Pathologist [facility] Vancomycin Random 21.1 ug/mL 10/07/2024 7:08 AM EDT [facility] Comment:Reference range not established for this test. Plasma 10/07/2024 6:0 0 AM EDT 10/07/2024 6:39 AM EDT Kiet Shuder PharmD LAB BLOOD ORDERABLES Final Re sult [facility] [address] * Osmolality (10/06/2024 2:50 PM EDT) Osmolality, Measured 304 278 - 305 mOsm/kg 10/06/2024 3:49 PM EDT [facility] Serum 10/06/2024 2:50 PM EDT 10/06/2024 2:56 PM EDT us Chari Vanegas MD LAB BLOOD ORDERABLES Final Resul t Performing Organization Address City/[facility]/ZIP Co de Phone Number [facility] [address] * CT Head WO contrast (10/06/2024 [...] Ur <15 mmol/L 10/06/2024 1:56 PM EDT [facility] Comment:Reference range not established for this test. Urine 10/06/2024 1:25 PM EDT 10/06/2024 1:32 PM EDT Chari Vanegas MD URINE ORDERABLES Final Result Performing Organization Address [facility] Co de Phone Number [facility] [address] [facility]. [address] * Potassium, urine, random (10/06/2024 1:25 PM EDT) Potassium Urine Random 50.0 mmol/L 10/06/2024 1:56 PM EDT [facility] Comment:Reference range not established for this test. Urine 10/06/2024 1:25 PM EDT 10/06/2024 1:32 PM EDT Chari Vanegas MD URINE ORDERABLES Final Result [facility] [address] * Sodium, urine, random (10/06/2024 1:25 PM EDT) Sodium, Ur <10 mmol/L 10/06/2024 1:56 PM EDT [facility] Comment:Reference range not established for this test. Urine 10/06/2024 1:25 PM EDT 10/06/2024 1:32 PM EDT Chari Vanegas MD URINE ORDERABLES Final Result Performing Organization Address City/[facility] Co de Phone Number [facility] [address] [facility]. [address] * Creatinine, Urine, Random (10/06/2024 1:25 PM EDT) Creatinine, Urine 87.40 mg/dL 10/06/2024 1:56 PM EDT [facility] Comment:Reference range not established for this test. Urine 10/06/2024 1:25 PM EDT 10/06/2024 1:32 PM EDT Chari Vanegas MD URINE ORDERABLES Final Result Performing Organization Address [facility] Co de Phone Number [facility] [address] [facility]. [address] * Osmolality, Urine (10/06/2024 1:25 PM EDT) Osmolality, Ur 386 50 - 1,200 mOsm/kg 10/06/2024 1:55 PM EDT [facility] Urine 10/06/2024 1:25 PM EDT 10/06/2024 1:32 PM EDT us Chari Vanegas MD URINE ORDERABLES Final Result Performing Organization Address [facility] Co de Phone Number [facility] [address] [facility]. [address] * Urine Drug Confirmation (10/06/2024 11:51 AM EDT) BARBITURATES NOT PRESENT 10/09/2024 3:23 PM EDT [facility] Comment:Results were recheck ed. BENZODIAZEPINES PRESENT 3:23 PM EDT [facility] Nordiazepam 3 ng/mL 10/09/2024 3:23 PM EDT [facility] Comment:Results were recheck ed. Temazepam 8 ng/mL 10/09/2024 3:23 PM EDT [facility] Comment:Results were recheck ed. CANNABINOIDS NOT PRESENT 10/09/2024 3:23 PM EDT [facility] GROUT MACHINE TENDER STIMULANTS NOT PRESENT 3:23 PM EDT [facility] OPIOID ANALGESICS PRESENT 025 3:23 PM EDT [facility] Oxycodone 329 ng/mL 10/09/2024 3:23 PM EDT [facility] Oxymorphone 61 ng/mL 10/09/2024 3:23 PM EDT [facility] Tramadol >1000 ng/mL 10/09/2024 3:23 PM EDT [facility] OPIOID ANTAGONISTS NOT PRESENT 10/09 3:23 PM EDT [facility] SEDATIVES/MUSCLE RELAXANTS NOT PRESENT 10/09/2024 3:23 PM EDT [facility] TRICYCLIC ANTIDEPRESSANTS NOT PRESENT 10/09/2024 3:23 PM EDT [facility] Urine 10/06/2024 11:5 1 AM EDT 10/06/2024 1:13 PM EDT Bisi Hernandez DO URINE ORDERABLES Final Result [facility] [address] * (ABNORMAL) Urine Drug Screen Reflex to Confirmation (10/06/2024 11:51 AM EDT) Amphetamine, 500 ng/mL Cutoff Negative Negative 10/06/2024 1:13 PM EDT [facility] Barbiturates UR, 300 ng/mL Cutoff Negative Negative 10/06/2024 1:13 PM EDT [facility] Buprenorphine, 5 ng/mL Cutoff Negative Negative 10/06/2024 1:13 PM EDT [facility] Benzodiazepines UR, 300 ng/mL Cutoff Negative Negative 10/06/2024 1:13 PM EDT [facility] Cocaine UR, 300 ng/mL Cutoff Negative Negative 10/06/2024 1:13 PM EDT [facility] Methadone, UR, 300 ng/mL Cutoff Negative Negative 10/06/2024 1:13 PM EDT [facility] Opiates UR, 300 ng/mL Cutoff Negative Negative 10/06/2024 1:13 PM EDT [facility] Oxycodone, 100 ng/mL Cutoff Presumptive Positive(A) Negative 10/06/2024 1:13 PM EDT [facility] Tricyclic Antidepressants, 300 ng/mL Cutoff Negative Negative 10/06/2024 1:13 PM EDT [facility] Comment:This test has been d eveloped and its performance characteristics determined by [facility] which is certified under [...] Cutoff Negative Negative 10/06/2024 1:13 PM EDT [facility] Comment:This is a screening method only and may be associated with false positive and/or false negative results. Results are not definitive without additional confirmatory testing by mass spectrometry. Fentanyl, 2 ng/mL Cutoff Negative Negative 10/06/2024 1:13 PM EDT [facility] Comment:This test has been d eveloped and its performance characteristics determined by [facility] which is certified under [...] AM EDT 10/06/2024 11:58 AM EDT Narrative [facility] - 10/06/2024 1:13 PM EDT CONFIRMATION TO FOLLOW Bisi Hernandezella DO URINE ORDERABLES Final Result Performing Organization Address [facility] de Phone Number [facility] [address] * Chloride, urine, random (10/06/2024 11:51 AM EDT) Chloride, Ur <15 mmol/L 10/06/2024 1:13 PM EDT [facility] Comment:Reference range not established for this test. Urine 10/06/2024 11:5 1 AM EDT 10/06/2024 11:57 AM EDT Bisi Hernandez DO URINE ORDERABLES Final Result Performing Organization Address [facility] de Phone Number [facility] [address] * Potassium, urine, random (10/06/2024 11:51 AM EDT) Potassium Urine Random 49.0 mmol/L 10/06/2024 1:13 PM EDT [facility] Comment:Reference range not established for this test. Urine 10/06/2024 11:5 1 AM EDT 10/06/2024 11:57 AM EDT Bisi Hernandez DO URINE ORDERABLES Final Result Performing Organization Address [facility] de Phone Number [facility] [address] * Sodium, urine, random (10/06/2024 11:51 AM EDT) Sodium, Ur <10 mmol/L 10/06/2024 1:13 PM EDT [facility] Comment:Reference range not established for this test. Urine 10/06/2024 11:5 1 AM EDT 10/06/2024 11:57 AM EDT us Bisi Akella DO URINE ORDERABLES Final Result [facility] [address] [facility] [place] [address], [facility] * Urinalysis w/Rfl to Microscopic (10/06/2024 11:51 AM EDT) Color, UA Yellow Yellow,Straw 10/06/2024 12:25 PM EDT [facility] Clarity, UA Clear Clear 10/06/2024 12:25 PM EDT [facility] Specific [place], UA 1.014 1.005 - 1.035 10/06/2024 12:25 PM EDT [facility] pH, UA 6.0 5.0 - 8.0 10/06/2024 12:25 PM EDT [facility] Protein, UA Negative Negative mg/dL 10/06/2024 12:25 PM EDT [facility] Glucose, UA Negative Negative mg/dL 10/06/2024 12:25 PM EDT [facility] Ketones, UA Negative Negative mg/dL 10/06/2024 12:25 PM EDT [facility] Bilirubin, UA Negative Negative 10/06/2024 12:25 PM EDT [facility] Blood, UA Negative Negative 10/06/2024 12:25 PM EDT [facility] Nitrite, UA Negative Negative 10/06/2024 12:25 PM EDT [facility] Urobilinogen, UA <2.0 0.2 - 1.9 mg/dL 10/06/2024 12:25 PM EDT [facility] Leukocyte Esterase, UA Negative Negative 10/06/2024 12:25 PM EDT [facility] Urine 10/06/2024 11:5 1 AM EDT 10/06/2024 11:57 AM EDT Narrative [facility] - 10/06/2024 12:25 PM EDT Microscopic testing is not performed when the dipstick is negative for blood, leukocyte, protein and nitrite. us Bisi Hernandez DO URINE ORDERABLES Final Result [facility] [address] [address], [facility] * Lactic Acid, STAT (10/06/2024 7:38 AM EDT) Lactate 0.9 0.5 - 2.2 mmol/L 10/06/2024 8:05 AM EDT [facility] Plasma 10/06/2024 7:38 AM EDT 10/06/2024 7:42 AM EDT us Chari Vanegas MD LAB BLOOD ORDERABLES Final Resul t [facility] [address] [place], [place] [address] * (ABNORMAL) CBC, STAT (10/06/2024 7:37 AM EDT) WBC 5.6 3.8 - 10.8 10E3/uL 10/06/2024 8:22 AM EDT [facility] RBC 2.50(L) 4.20 - 5.80 10E6/uL 10/06/2024 8:22 AM EDT [facility] Hemoglobin 9.0(L) 13.2 - 17.1 g/dL 10/06/2024 8:22 AM EDT [facility] Hematocrit 25.3(L) 38.5 - 50.0 % 10/06/2024 8:22 AM EDT [facility] MCV 101.2(H) 80.0 - 100.0 fL 10/06/2024 8:22 AM EDT [facility] MCH 36.0(H) 27.0 - 33.0 pg 10/06/2024 8:22 AM EDT [facility] MCHC 35.6 32.0 - 36.0 g/dL 10/06/2024 8:22 AM EDT [facility] RDW 17.7(H) 11.0 - 15.0 % 10/06/2024 8:22 AM EDT [facility] Platelets 52(L) 140 - 400 10E3/uL 10/06/2024 8:22 AM EDT [facility] Comment: Specimen checked for clots. None detected. Slide Reviewed for PLT Clumps. None Seen. MPV 8.2 7.5 - 11.5 fL 10/06/2024 8:22 AM EDT [facility] Whole Blood 10/06/2024 7:37 AM EDT 10/06/2024 7:43 AM EDT us Chari Vanegas MD LAB BLOOD ORDERABLES Final Resul t [facility] [address] [place] [address], [facility] * (ABNORMAL) Comprehensive Metabolic Panel (10/06/2024 7:37 AM EDT) Sodium 129(L) 133 - 146 mmol/L 10/06/2024 8:16 AM EDT [facility] Potassium 4.4 3.5 - 5.3 mmol/L 10/06/2024 8:16 AM EDT [facility] Chloride 100 98 - 110 mmol/L 10/06/2024 8:16 AM EDT [facility] CO2 18(L) 21 - 33 mmol/L 10/06/2024 8:16 AM EDT [facility] Anion Gap 11 3 - 16 mmol/L 10/06/2024 8:16 AM EDT [facility] BUN 62(H) 7 - 25 mg/dL 10/06/2024 8:16 AM EDT [facility] Creatinine 3.40(H) 0.60 - 1.30 mg/dL 10/06/2024 8:16 AM EDT [facility] Glucose 98 70 - 100 mg/dL 10/06/2024 8:16 AM EDT [facility] Calcium 9.5 8.6 - 10.3 mg/dL 10/06/2024 8:16 AM EDT [facility] Total Bilirubin 14.3(H) 0.0 - 1.5 mg/dL 10/06/2024 8:16 AM EDT [facility] AST 57(H) 13 - 39 U/L 10/06/2024 8:16 AM EDT [facility] ALT 29 7 - 52 U/L 10/06/2024 8:16 AM EDT [facility] Alkaline Phosphatase 158(H) 36 - 125 U/L 10/06/2024 8:16 AM EDT [facility] Total Protein 5.6(L) 6.4 - 8.9 g/dL 10/06/2024 8:16 AM EDT [facility] Albumin 3.6 3.5 - 5.7 g/dL 10/06/2024 8:16 AM EDT [facility] Osmolality, Calculated 286 278 - 305 mOsm/kg 10/06/2024 8:16 AM EDT [facility] EGFR 22 10/06/2024 8:16 AM EDT [facility] Comment:As of 2021, the estimated [...] MD LAB BLOOD ORDERABLES Final Resul t [facility] [address] [place] [address], [facility] * (ABNORMAL) Venous Blood Gas, Line/Syringe, STAT (10/06/2024 7:37 AM EDT) PH-Line Draw 7.27(L) 7.32 - 7.42 10/06/2024 7:46 AM EDT [facility] PCO2-Line Draw 36(L) 41 - 51 mm Hg 10/06/2024 7:46 AM EDT [facility] PO2-Line Draw 44(H) 25 - 40 mm Hg 10/06/2024 7:46 AM EDT [facility] HCO3-Line Draw 17(L) 24 - 28 mmol/L 10/06/2024 7:46 AM EDT [facility] CO2 Content-Line Draw 18(L) 25 - 29 mmol/L 10/06/2024 7:46 AM EDT [facility] Base Excess-Line Draw -9.6(L) -2.0 - 3.0 mmol/L 10/06/2024 7:46 AM EDT [facility] %HBO2-Line Draw 69.8 40.0 - 70.0 % 10/06/2024 7:46 AM EDT [facility] Carboxyhgb-Ludivina e Draw 0.7 % 10/06/2024 7:46 AM EDT [facility] Comment: CARBOXYHEMOGLOBIN (CO) REFERENCE RANGES: Non-Smokers: <2 % Smokers: <8 % TOXIC: >20 % Methemoglobin- Line Draw 0.3 0.0 - 1.5 % 10/06/2024 7:46 AM EDT [facility] Reduced Hemoglobin-Ludivina e Draw 29.2(H) 0.0 - 5.0 % 10/06/2024 7:46 AM EDT [facility] Venous, Line Draw 10/06/2024 7:37 AM EDT 10/06/2024 7:43 AM EDT us Chari Vanegas MD LAB BLOOD ORDERABLES Final Resul t Performing Organization Address City/State/[facility] Co de Phone Number [facility] [address] [id number], [facility] * (ABNORMAL) Venous Blood Gas, Line/Syringe, STAT (10/06/2024 4:03 AM EDT) PH-Line Draw 7.21(L) 7.32 - 7.42 10/06/2024 4:16 AM EDT [facility] PCO2-Line Draw 41 41 - 51 mm Hg 10/06/2024 4:16 AM EDT [facility] PO2-Line Draw 32 25 - 40 mm Hg 10/06/2024 4:16 AM EDT [facility] HCO3-Line Draw 16(L) 24 - 28 mmol/L 10/06/2024 4:16 AM EDT [facility] CO2 Content-Line Draw 18(L) 25 - 29 mmol/L 10/06/2024 4:16 AM EDT [facility] Base Excess-Line Draw -10.8(L) -2.0 - 3.0 mmol/L 10/06/2024 4:16 AM EDT [facility] %HBO2-Line Draw 47.5 40.0 - 70.0 % 10/06/2024 4:16 AM EDT [facility] Carboxyhgb-Ludivina e Draw 2.0 % 10/06/2024 4:16 AM EDT [facility] Comment: CARBOXYHEMOGLOBIN (CO) REFERENCE RANGES: Non-Smokers: <2 % Smokers: <8 % TOXIC: >20 % Methemoglobin- Line Draw 0.7 0.0 - 1.5 % 10/06/2024 4:16 AM EDT [facility] Reduced Hemoglobin-Ludivina e Draw 49.8(H) 0.0 - 5.0 % 10/06/2024 4:16 AM EDT [facility] Venous, Line Draw 10/06/2024 4:03 AM EDT 10/06/2024 4:12 AM EDT [facility] LAB BLOOD ORDERABLES Final Resul t Performing Organization Address City/[facility] Co de Phone Number [facility] [address] * (ABNORMAL) Protime-INR (10/06/2024 4:01 AM EDT) Protime 21.3(H) 12.1 - 15.1 seconds 10/06/2024 4:40 AM EDT [facility] INR 1.8(H) 0.9 - 1.1 10/06/2024 4:40 AM EDT [facility] Comment: RECOMMENDED THERAPEUTIC RANGES USING INR : Stable oral anticoagulant therapy: 2.0 - 3.0 Mechanical prosthetic heart valve: 2.5 - 3.5 Recurrent acute myocardial infarction: 2.5 - 3.5 Plasma 10/06/2024 4:01 AM EDT 10/06/2024 4:11 AM EDT [employer] DO LAB BLOOD ORDERABLES Final Resul t [facility] [address] * (ABNORMAL) Hepatic Function Panel, AM (10/06/2024 4:01 AM EDT) Total Bilirubin 14.7(H) 0.0 - 1.5 mg/dL 10/06/2024 4:57 AM EDT [facility] Bilirubin, Direct 7.08(H) 0.00 - 0.40 mg/dL 10/06/2024 4:57 AM EDT [facility] AST 60(H) 13 - 39 U/L 10/06/2024 4:57 AM EDT [facility] ALT 31 7 - 52 U/L 10/06/2024 4:57 AM EDT [facility] Alkaline Phosphatase 162(H) 36 - 125 U/L 10/06/2024 4:57 AM EDT [facility] Total Protein 5.3(L) 6.4 - 8.9 g/dL 10/06/2024 4:57 AM EDT [facility] Albumin 3.4(L) 3.5 - 5.7 g/dL 10/06/2024 4:57 AM EDT [facility] Bilirubin, Indirect 7.62(H) 0.00 - 1.10 mg/dL 10/06/2024 4:57 AM EDT [facility] Plasma 10/06/2024 4:01 AM EDT 10/06/2024 4:22 AM EDT Bisi Hernandez DO LAB BLOOD ORDERABLES Final Resul t [facility] [address] * Magnesium (10/06/2024 4:01 AM EDT) Magnesium 1.8 1.5 - 2.5 mg/dL 10/06/2024 4:57 AM EDT [facility] Plasma 10/06/2024 4:01 AM EDT 10/06/2024 4:22 AM EDT us Bisi Hernandez DO LAB BLOOD ORDERABLES Final Resul t [facility] [address] [place] [address], [facility] * (ABNORMAL) Renal Function Panel w/EGFR (10/06/2024 4:01 AM EDT) Sodium 129(L) 133 - 146 mmol/L 10/06/2024 4:57 AM EDT [facility] Potassium 4.7 3.5 - 5.3 mmol/L 10/06/2024 4:57 AM EDT [facility] Chloride 100 98 - 110 mmol/L 10/06/2024 4:57 AM EDT [facility] CO2 16(L) 21 - 33 mmol/L 10/06/2024 4:57 AM EDT [facility] Anion Gap 13 3 - 16 mmol/L 10/06/2024 4:57 AM EDT [facility] BUN 61(H) 7 - 25 mg/dL 10/06/2024 4:57 AM EDT [facility] Creatinine 3.49(H) 0.60 - 1.30 mg/dL 10/06/2024 4:57 AM EDT [facility] Glucose 104(H) 70 - 100 mg/dL 10/06/2024 4:57 AM EDT [facility] Calcium 9.2 8.6 - 10.3 mg/dL 10/06/2024 4:57 AM EDT [facility] Phosphorus 5.3(H) 2.1 - 4.7 mg/dL 10/06/2024 4:57 AM EDT [facility] Albumin 3.4(L) 3.5 - 5.7 g/dL 10/06/2024 4:57 AM EDT [facility] Osmolality, Calculated 286 278 - 305 mOsm/kg 10/06/2024 4:57 AM EDT [facility] EGFR 22 10/06/2024 4:57 AM EDT [facility] Comment:As of 2021, the estimated [...] DO LAB BLOOD ORDERABLES Final Resul t [facility] [address] [place] [address], [facility] * (ABNORMAL) CBC (10/06/2024 4:01 AM EDT) WBC 7.6 3.8 - 10.8 10E3/uL 10/06/2024 5:16 AM EDT [facility] RBC 2.77(L) 4.20 - 5.80 10E6/uL 10/06/2024 5:16 AM EDT [facility] Hemoglobin 10.1(L) 13.2 - 17.1 g/dL 10/06/2024 5:16 AM EDT [facility] Hematocrit 28.4(L) 38.5 - 50.0 % 10/06/2024 5:16 AM EDT [facility] MCV 102.4(H) 80.0 - 100.0 fL 10/06/2024 5:16 AM EDT [facility] MCH 36.4(H) 27.0 - 33.0 pg 10/06/2024 5:16 AM EDT [facility] MCHC 35.5 32.0 - 36.0 g/dL 10/06/2024 5:16 AM EDT [facility] RDW 18.0(H) 11.0 - 15.0 % 10/06/2024 5:16 AM EDT [facility] Platelets 53(L) 140 - 400 10E3/uL 10/06/2024 5:16 AM EDT [facility] Comment:Specimen checked for clots. None detected. MPV 8.4 7.5 - 11.5 fL 10/06/2024 5:16 AM EDT [facility] Whole Blood 10/06/2024 4:01 AM EDT 10/06/2024 4:11 AM EDT [facility] Final Resul t Performing Organization Address [facility] de Phone Number [facility] [address] [place] [address]. [address] * Hepatitis C Antibody (10/06/2024 4:01 AM EDT) HCV Ab Nonreactive Nonreactive 10/06/2024 5:12 AM EDT [facility] Comment:Health Department no tified in accordance with reportable infectious disease guidelines. Serum 10/06/2024 4:01 AM EDT 10/06/2024 4:11 AM EDT Narrative [facility] - 10/06/2024 5:12 AM EDT Antibodies to HCV not detected; does not exclude the possibility of exposure to HCV. [facility] BLOOD ORDERABLES Final Resul t Performing Organization Address [facility] de Phone Number [facility] [address] [place] [address]. [address] * (ABNORMAL) Hepatitis B Surface Antibody, Quantitati (10/06/2024 4:01 AM EDT) Hep B S Ab Reactive( A) Nonreactive 10/06/2024 5:16 AM EDT [facility] HBSAB NUMBER 11.50(H) 0.00 - 7.99 mIU/mL 10/06/2024 5:16 AM EDT [facility] Serum 10/06/2024 4:01 AM EDT 10/06/2024 4:11 AM EDT [facility] - 10/06/2024 5:16 AM EDT Individual is considered immune to HBV infection. [facility] LAB BLOOD ORDERABLES Final Resul t Performing Organization Address City/[facility] Co de Phone Number [facility] [address] [place] [address]. [address] * Hepatitis B surface antigen (10/06/2024 4:01 AM EDT) Hep B Surface Ag Nonreactive Nonreactive 10/06/2024 5:07 AM EDT [facility] Comment:Health Department no tified in accordance with reportable infectious disease guidelines. Serum 10/06/2024 4:01 AM EDT 10/06/2024 4:11 AM EDT [facility] - 10/06/2024 5:07 AM EDT Specimen is considered negative for HBsAg. [facility] LAB BLOOD ORDERABLES Final Resul t Performing Organization Address [facility] Co de Phone Number [facility] [address] [place] [address]. [address] * Hepatitis A Antibody Total (10/06/2024 4:01 AM EDT) Anti-HAV Total (IgG + IgM) Nonreactive 10/06/2024 5:08 AM EDT [facility] Serum 10/06/2024 4:01 AM EDT 10/06/2024 4:11 AM EDT [facility] - 10/06/2024 5:08 AM EDT HAV antibodies not detected [facility] LAB BLOOD ORDERABLES Final Resul t [facility] [address] [facility]. [address] * Hepatitis A IgM (10/06/2024 4:01 AM EDT) Hep A IgM Nonreactive Nonreactive 10/06/2024 5:02 AM EDT [facility] Serum 10/06/2024 4:01 AM EDT 10/06/2024 4:11 AM EDT Narrative [facility] - 10/06/2024 5:02 AM EDT IgM anti-HAV not detected. Does not exclude the possibility of exposure to or infection with HAV. Levels of IgM anti-HAV may be below the cut-off in early infection. [facility] LAB BLOOD ORDERABLES Final Resul t Performing Organization Address City/[facility]/ZIP Co de Phone Number [facility] [address] * (ABNORMAL) Salicylate Level (10/06/2024 4:01 AM EDT) Salicylate Lvl <3(L) 10 - 30 mg/dL 10/06/2024 4:58 AM EDT [facility] Serum 10/06/2024 4:01 AM EDT 10/06/2024 4:22 AM EDT [facility] LAB BLOOD ORDERABLES Final Resul t Performing Organization Address [facility] Co de Phone Number [facility] [address] * AFP Tumor Marker (10/06/2024 4:01 AM EDT) AFP-Tumor Marker 2.6 0.0 - 9.0 ng/mL 10/06/2024 4:55 AM EDT [facility] Serum 10/06/2024 4:01 AM EDT 10/06/2024 4:22 AM EDT [facility] - 10/06/2024 4:55 AM EDT The testing method for AFP is a chemiluminescent immunoassay manufactured by [employer] Concentrations of AFP obtained by different assay methods or kits may vary and cannot be used interchangeably. AFP results cannot be interpreted as absolute evidence of the presence or absence of malignant disease. [facility] LAB BLOOD ORDERABLES Final Resul t Performing Organization Address [facility] Co de Phone Number [facility] [address] * Upper Respiratory Viral/Bacterial Panel-CLINICAL PROGRAM MANAGER Only (10/06/2024 3:12 AM EDT) [facility] Adenovirus Not Detected Not Detected 10/06/2024 11:38 PM EDT [facility] Coronavirus (229E,HKU1,NL63,OC 43) Not Detected Not Detected 10/06/2024 11:38 PM EDT [facility] SARS-CoV-2 Not Detected Not Detected 10/06/2024 11:38 PM EDT [facility] Human Metapneumovirus Not Detected Not Detected 10/06/2024 11:38 PM EDT [facility] Human Rhinovirus/Enterov irus Not Detected Not Detected 10/06/2024 11:38 PM EDT [facility] Influenza A Not Detected Not Detected 10/06/2024 11:38 PM EDT [facility] Influenza A H1 Not Detected Not Detected 10/06/2024 11:38 PM EDT [facility] Influenza A/H1-2009 Not Detected Not Detected 10/06/2024 11:38 PM EDT [facility] Influenza A H3 Not Detected Not Detected 10/06/2024 11:38 PM EDT [facility] Influenza B Not Detected Not Detected 10/06/2024 11:38 PM EDT [facility] Parainfluenza 1 Not Detected Not Detected 10/06/2024 11:38 PM EDT [facility] Parainfluenza 2 Not Detected Not Detected 10/06/2024 11:38 PM EDT [facility] Parainfluenza 3 Not Detected Not Detected 10/06/2024 11:38 PM EDT [facility] Parainfluenza 4 Not Detected Not Detected 10/06/2024 11:38 PM EDT [facility] Resp. Syncycial Virus A Not Detected Not Detected 10/06/2024 11:38 PM EDT [facility] Resp. Syncycial Virus B Not Detected Not Detected 10/06/2024 11:38 PM EDT [facility] Chlamydia pneumoniae Not Detected Not Detected 10/06/2024 11:38 PM EDT [facility] Mycoplasma pneumoniae Not Detected Not Detected 10/06/2024 11:38 PM EDT [facility] Comment: The Respiratory Viral-Bacterial Panel [...] Test results have been sent to the [facility] in accordance with state requirements. For a fact sheet for healthcare providers, see https://www.fda.gov/media/088306/download. For a fact sheet for patients, see https://www.fda.gov/media/178197/download. Nasopharyngeal Swab NASOPHARYNGEAL SWAB / Unknown 10/06/2024 3:12 AM EDT 10/06/2024 5:41 PM EDT Comment:CLINICAL PROGRAM MANAGER Bisi Hernandez DO BODY FLUIDS AND STOOLS ORDERABLE S Final Result Performing Organization Address City/State/[facility] Co de Phone Number [facility] [address] [id number] * X-ray Portable Chest [...] AM EDT Bisi Hernandez DO [facility] DIAGNOSTIC IMAGING ORDERABLE S Final Result * Phosphatidylethanol Confirmation, B (10/06/2024 1:04 AM EDT) PETH 16:0/18.1 (POPETH) <10 Cutoff: 10 ng/mL 10/10/2024 3:11 AM EDT [facility] Comment: Phosphatidylethanol (PEth) homologues result [...] its performance characteristics determined by [facility] in a manner consistent with CLIA requirements. This test has not been cleared or approved by the U.S. Food and Drug Administration. Test Performed by: [place] [address] Die Keeper: Kathy Ortiz Ph.D.; CLIA# [id number] Whole Blood 10/06/2024 1:04 AM EDT 10/10/2024 3:11 AM EDT [facility] LAB BLOOD ORDERABLES Final Resul t Performing Organization Address City/[facility] Co de Phone Number [facility] [address] * (ABNORMAL) Acetaminophen Level (10/06/2024 1:04 AM EDT) Acetaminophen Level <10(L) 10 - 30 ug/mL 10/06/2024 2:08 AM EDT [facility] Serum 10/06/2024 1:04 AM EDT 10/06/2024 1:30 AM EDT [facility] LAB BLOOD ORDERABLES Final Resul t Performing Organization Address [facility] Co de Phone Number [facility] [address] * Ethanol, Serum (10/06/2024 1:04 AM EDT) Ethanol <10 0 - 10 mg/dL 10/06/2024 2:08 AM EDT [facility] Serum 10/06/2024 1:04 AM EDT 10/06/2024 1:30 AM EDT Bisi [employer] maría DOZIER LAB BLOOD ORDERABLES Final Resul t [facility] [address] [facility]. [address] * #2 Blood culture-Peripheral site 2 (10/06/2024 1:04 AM EDT) Culture Result No Growth After 5 Days [facility] Blood BLOOD SPECIMEN / Unknown 10/06/2024 1:04 AM EDT 10/06/2024 4:57 AM EDT Narrative [facility] - 10/11/2024 5:05 AM EDT Suboptimal volume of blood received. Interpret results with caution. Bisi Mary DOZIER MICROBIOLOGY - GENERAL ORDERABLE S Final Result Performing Organization Address City/[facility]/ZIP Co de Phone Number [facility] [address] [facility]. [address] * #1 Blood culture-Peripheral site 1 (10/06/2024 1:04 AM EDT) Culture Result No Growth After 5 Days [facility] Blood BLOOD SPECIMEN / Unknown 10/06/2024 1:04 AM EDT 10/06/2024 4:57 AM EDT [facility] - 10/11/2024 5:01 AM EDT Suboptimal volume of blood received. Interpret results with caution. Bisi Hernandez DO MICROBIOLOGY - GENERAL ORDERABLE S Final Result Performing Organization Address City/[facility]/ZIP Co de Phone Number [facility] [address] * Ammonia (10/06/2024 1:04 AM EDT) Ammonia 77 27 - 90 ug/dL 10/06/2024 2:00 AM EDT [facility] Plasma 10/06/2024 1:04 AM EDT 10/06/2024 1:30 AM EDT [facility] DO LAB BLOOD ORDERABLES Final Resul t Performing Organization Address City/[facility] Co de Phone Number [facility] [address] [facility]. [address] * Thyroid Function [place] (10/06/2024 1:04 AM EDT) TSH 0.84 0.45 - 4.12 uIU/mL 10/06/2024 2:20 AM EDT [facility] Serum 10/06/2024 1:04 AM EDT 10/06/2024 1:39 AM EDT [facility] LAB BLOOD ORDERABLES Final Resul t Performing Organization Address [facility] Phone Number [facility] [address] [facility]. [address] * (ABNORMAL) Protime-INR (10/06/2024 1:04 AM EDT) Protime 22.8(H) 12.1 - 15.1 seconds 10/06/2024 1:48 AM EDT [facility] INR 1.9(H) 0.9 - 1.1 10/06/2024 1:48 AM EDT [facility] Comment: RECOMMENDED THERAPEUTIC RANGES USING INR : Stable oral anticoagulant therapy: 2.0 - 3.0 Mechanical prosthetic heart valve: 2.5 - 3.5 Recurrent acute myocardial infarction: 2.5 - 3.5 Plasma 10/06/2024 1:04 AM EDT 10/06/2024 1:30 AM EDT Jelastic DO LAB BLOOD ORDERABLES Final Resul t Performing Organization Address [facility]/ZIP Co de Phone Number [facility] [address] * Lactic Acid, STAT (10/06/2024 1:04 AM EDT) Lactate 1.2 0.5 - 2.2 mmol/L 10/06/2024 1:59 AM EDT [facility] Plasma 10/06/2024 1:04 AM EDT 10/06/2024 1:30 AM EDT us B[facility] LAB BLOOD ORDERABLES Final Resul t [facility] [address] * (ABNORMAL) CBC, STAT (10/06/2024 1:04 AM EDT) WBC 7.9 3.8 - 10.8 10E3/uL 10/06/2024 2:36 AM EDT [facility] RBC 2.76(L) 4.20 - 5.80 10E6/uL 10/06/2024 2:36 AM EDT [facility] Hemoglobin 9.9(L) 13.2 - 17.1 g/dL 10/06/2024 2:36 AM EDT [facility] Hematocrit 28.0(L) 38.5 - 50.0 % 10/06/2024 2:36 AM EDT [facility] MCV 101.5(H) 80.0 - 100.0 fL 10/06/2024 2:36 AM EDT [facility] MCH 35.7(H) 27.0 - 33.0 pg 10/06/2024 2:36 AM EDT [facility] MCHC 35.2 32.0 - 36.0 g/dL 10/06/2024 2:36 AM EDT [facility] RDW 17.9(H) 11.0 - 15.0 % 10/06/2024 2:36 AM EDT [facility] Platelets 58(L) 140 - 400 10E3/uL 10/06/2024 2:36 AM EDT [facility] Comment: Specimen checked for clots. None detected. Slide Reviewed for PLT Clumps. None Seen. MPV 8.2 7.5 - 11.5 fL 10/06/2024 2:36 AM EDT [facility] Whole Blood 10/06/2024 1:04 AM EDT 10/06/2024 1:31 AM EDT us Bisi Hernandez DO LAB BLOOD ORDERABLES Final Resul t [facility] [address] [place] [address], [facility] * (ABNORMAL) Comprehensive Metabolic Panel (10/06/2024 1:04 AM EDT) Sodium 127(L) 133 - 146 mmol/L 10/06/2024 2:05 AM EDT [facility] Potassium 4.5 3.5 - 5.3 mmol/L 10/06/2024 2:05 AM EDT [facility] Chloride 99 98 - 110 mmol/L 10/06/2024 2:05 AM EDT [facility] CO2 18(L) 21 - 33 mmol/L 10/06/2024 2:05 AM EDT [facility] Anion Gap 10 3 - 16 mmol/L 10/06/2024 2:05 AM EDT [facility] BUN 59(H) 7 - 25 mg/dL 10/06/2024 2:05 AM EDT [facility] Creatinine 3.54(H) 0.60 - 1.30 mg/dL 10/06/2024 2:05 AM EDT [facility] Glucose 116(H) 70 - 100 mg/dL 10/06/2024 2:05 AM EDT [facility] Calcium 9.0 8.6 - 10.3 mg/dL 10/06/2024 2:05 AM EDT [facility] Total Bilirubin 14.8(H) 0.0 - 1.5 mg/dL 10/06/2024 2:05 AM EDT [facility] AST 61(H) 13 - 39 U/L 10/06/2024 2:05 AM EDT [facility] ALT 33 7 - 52 U/L 10/06/2024 2:05 AM EDT [facility] Alkaline Phosphatase 174(H) 36 - 125 U/L 10/06/2024 2:05 AM EDT [facility] Total Protein 5.2(L) 6.4 - 8.9 g/dL 10/06/2024 2:05 AM EDT [facility] Albumin 3.3(L) 3.5 - 5.7 g/dL 10/06/2024 2:05 AM EDT [facility] Osmolality, Calculated 282 278 - 305 mOsm/kg 10/06/2024 2:05 AM EDT [facility] EGFR 21 10/06/2024 2:05 AM EDT [facility] Comment:As of 2021, the estimated [...] 1:04 AM EDT 10/06/2024 1:40 AM EDT Bisi Hernandez DO LAB BLOOD ORDERABLES Final Resul t [facility] [address] [place] [address], [facility] documented in this encounter Visit Diagnoses Not on filedocumented in this encounter Administered Medications Inactive Administered [...] PRN, Itching, Starting on Sun10/10/24 at 1139 fentaNYL (SUBLIMAZE) injection Intra-op PRN, Starting on Sun10/14/24 at 1317, Intra-procedure(Invasive Cardiology) Given 10/14/2024 1:26 PM EDT 25 mcg Given 10/14/2024 1:21 PM EDT 12.5 mcg Given 10/14/2024 1:17 PM EDT 25 mcg FLUoxetine (PROZAC) capsule 20 mg 20 mg, [...] Telemetry Monitoring Required, do not discontinue CMU. midazolam (PF) (VERSED) injection Intra-op PRN, Starting on Sun10/14/24 at 1317, Intra-procedure(Invasive Cardiology) Given 10/14/2024 1:26 PM EDT 0.5 mg Given 10/14/2024 1:21 PM EDT 1 mg Given 10/14/2024 1:17 PM EDT 0.5 mg midodrine (PROAMATINE) tablet 10 mg 10 mg, Oral, 3 times daily, First dose on Tish 10/09/24 at 1300 Given 10/17/2024 8:49 AM EDT 10 mg Given 10/16/2024 8:23 PM EDT 10 mg Given 10/16/2024 1:17 PM EDT 10 mg nitroGLYCERIN in D5W injection - COURT BAILIFF OR SHERIFF ONLY Intra-op PRN, Starting on Sun10/14/24 at 1321, Intra-procedure(Invasive Cardiology) Given 10/14/2024 1:45 PM EDT 200 mcg Right Arm Given 10/14/2024 1:38 PM EDT 200 mcg Ri ght Arm Given 10/14/2024 1:21 PM EDT 200 mcg Ri ght Arm OMNIPAQUE (iohexol) 350 mg iodine/mL Intra-op PRN, Starting on Sun10/14/24 at 1407, Intra-procedure(Invasive Cardiology) Given 10/14/2024 2:07 PM EDT 35 mLs ondansetron (ZOFRAN) injection 4 mg 4 mg, Intravenous, Every 8 hours PRN, Nausea and/or Vomiting, Starting on Sun10/14/24 at 1947 Given 10/14/2024 8:20 PM EDT 4 mg oxyCODONE (ROXICODONE) immediate [...] Given 10/15/2024 8:20 AM EDT 40 mg phenylephrine (HUNG-SYNEPHRINE) injection Intra-op PRN, Starting on Sun10/14/24 at 1340, Intra-procedure(Invasive Cardiology) Given 10/14/2024 1:40 PM ED T 200 mcg rifAXIMin (XIFAXAN) tablet 550 mg 550 mg, [...] Given 10/16/2024 8:33 AM EDT 300 mg verapamiL (ISOPTIN) injection Intra-op PRN, Starting on Sun10/14/24 at 1319, Intra-procedure(Invasive Cardiology) Given 10/14/2024 1:45 PM EDT 2.5 mg Right Arm Given 10/14/2024 1:37 PM EDT 2.5 mg Ri ght Arm Given 10/14/2024 1:21 PM EDT 2.5 mg Ri ght Arm zinc sulfate (ZINCATE) capsule 220 mg 220 [...] Wolff RN)202 (Given - Provider: Soco Milton, RN) 0849 (Given - Provider: Suzette Arciniega [...] Wolff RN)203 (See Alternative - Provider: Soco Milton, ЮЛИЯ) [...] Chelsy Bush, RN)0635 (Given - Provider: Chelsy Bush RN)1322 [...] documented as of this encounter Care Teams Irrigation Technician Relationship Specialty Start Date End Date Enedina Mcguire NP [address] [place] [address] PCP - General Internal Medicine 10/05/24 documented as of this encounter
--- OUTSIDE RECORDS SUMMARY | 2024-10-20 09:10 | XMS_ITS | Encounter Summary ---
Author Organization [facility] Address [facility] [place] [address] Care Team Providers Care Leguillon Debeader Name Role Phone Enedina Mcguire NP Primary Care Provider [phone] Source Comments This information has been disclosed [...] release of HIV test results or diagnoses. [id number] Encounter Details Date Type Department Care Team (Latest Contact Info) Description 10/20/2024 9:10 AM EDT - 10/20/2024 11:59 PM EDT Hospital Encounter [facility] Radiology [address] [place] [phone] System, Provider Not In Discharge Disposition: Home [...] Recorded In the past 12 months has [employer], gas, oil, or water [employer] threatened to shut off services in your [...] any time in the past 12 m [facility], were you homeless or [...] AM EDT 10/17/2024 naloxone (NARCAN) 4 mg/actuation [place] Apply 1 spray in one nostril if [...] documented as of this encounter Care Teams Leguillon Debeader Relationship Specialty Start Date End Date Enedina Mcguire NP [address] [place] [address] PCP - General Internal Medicine 10/05/24 documented as of this encounter
--- OUTSIDE RECORDS SUMMARY | 2024-10-20 09:10 | XMS_ITS | Encounter Summary ---
Author Organization [facility] Address [facility] [place] [address] Care Team Providers Care Medical Management Trainer Name Role Phone Enedina Mcguire NP Primary Care Provider [phone] Source Comments This information has been disclosed [...] release of HIV test results or diagnoses. [id number] Encounter Details Date Type Department Care Team (Latest Contact Info) Description 10/20/2024 9:10 AM EDT - 10/20/2024 11:59 PM EDT Hospital Encounter [facility] Radiology [address] [place] [phone] System, Provider Not In Discharge Disposition: Home [...] Recorded In the past 12 months has [employer], gas, oil, or water [employer] threatened to shut off services in your [...] AM EDT 10/17/2024 naloxone (NARCAN) 4 mg/actuation [place] Apply 1 spray in one nostril if [...] documented as of this encounter Care Teams Medical Management Trainer Relationship Specialty Start Date End Date Enedina Mcguire NP [address] [place] [address] PCP - General Internal Medicine 10/05/24 documented as of this encounter
--- OUTSIDE RECORDS SUMMARY | 2024-10-20 09:10 | XMS_ITS | Encounter Summary ---
Author Organization [facility] Address [facility] [place] [address] Care Team Providers Care Paraffin Plant Sweater Operator Name Role Phone Enedina Mcguire NP Primary Care Provider [phone] Source Comments This information has been disclosed [...] release of HIV test results or diagnoses. [id number] Encounter Details Date Type Department Care Team (Latest Contact Info) Description 10/20/2024 9:10 AM EDT - 10/20/2024 11:59 PM EDT Hospital Encounter [facility] Radiology [address] [place] [address] System, Provider Not In Discharge Disposition: Home [...] Recorded In the past 12 months has [employer], gas, oil, or water [employer] threatened to shut off services in your [...] time in the past 12 m [facility], were you homeless or living in [...] AM EDT 10/17/2024 naloxone (NARCAN) 4 mg/actuation [place] Apply 1 spray in one nostril if [...] documented as of this encounter Care Teams Paraffin Plant Sweater Operator Relationship Specialty Start Date End Date Enedina Mcguire NP [address] [place] [address] PCP - General Internal Medicine 10/05/24 documented as of this encounter
--- OUTSIDE RECORDS SUMMARY | 2024-10-20 09:10 | XMS_ITS | Encounter Summary ---
Author Organization [facility] Address [facility] [place] [address] Care Team Providers Care Stock Receiver Name Role Phone Enedina Mcguire NP Primary Care Provider [phone] Source Comments This information has been disclosed [...] release of HIV test results or diagnoses. [id number] Encounter Details Date Type Department Care Team (Latest Contact Info) Description 10/20/2024 9:10 AM EDT - 10/20/2024 11:59 PM EDT Hospital Encounter [facility] Radiology [address] [place] [address] System, Provider Not In Discharge Disposition: Home [...] Recorded In the past 12 months has [employer], gas, oil, or water [employer] threatened to shut off services in your [...] any time in the past 12 m [facility], were you homeless or living [...] AM EDT 10/17/2024 naloxone (NARCAN) 4 mg/actuation [place] Apply 1 spray in one nostril if [...] documented as of this encounter Care Teams Stock Receiver Relationship Specialty Start Date End Date Enedina Mcguire NP [address] [place] [address] PCP - General Internal Medicine 10/05/24 documented as of this encounter
--- OUTSIDE RECORDS SUMMARY | 2024-10-20 09:10 | XMS_ITS | Encounter Summary ---
Author Organization [facility] Address [facility] [place] [address] Care Team Providers Care Clarity Specialists Name Role Phone Enedina Mcguire NP Primary Care Provider [phone] Source Comments This information has been disclosed [...] release of HIV test results or diagnoses. [id number] Encounter Details Date Type Department Care Team (Latest Contact Info) Description 10/20/2024 9:10 AM EDT - 10/20/2024 11:59 PM EDT Hospital Encounter [facility] Radiology [address] [place] [phone] System, Provider Not In Discharge Disposition: Home [...] Recorded In the past 12 months has [employer], gas, oil, or water [employer] threatened to shut off services in your [...] AM EDT 10/17/2024 naloxone (NARCAN) 4 mg/actuation [place] Apply 1 spray in one nostril if [...] documented as of this encounter Care Teams Clarity Specialists Relationship Specialty Start Date End Date Enedina Mcguire NP [address] [place] [address] PCP - General Internal Medicine 10/05/24 documented as of this encounter
--- OUTSIDE RECORDS SUMMARY | 2024-10-20 09:10 | XMS_ITS | Encounter Summary ---
Author Organization [facility] Address [facility] [place] [address] Care Team Providers Care Special Machine Operator Name Role Phone Enedina Mcguire NP Primary Care Provider [phone] Source Comments This information has been disclosed [...] release of HIV test results or diagnoses. [id number] Encounter Details Date Type Department Care Team (Latest Contact Info) Description 10/20/2024 9:10 AM EDT - 10/20/2024 11:59 PM EDT Hospital Encounter [facility] Radiology [address] [place] [address] System, Provider Not In Discharge Disposition: Home [...] Recorded In the past 12 months has [employer], gas, oil, or water [employer] threatened to shut off services in your [...] AM EDT 10/17/2024 naloxone (NARCAN) 4 mg/actuation [place] Apply 1 spray in one nostril if [...] documented as of this encounter Care Teams Special Machine Operator Relationship Specialty Start Date End Date Endeina Mcguire NP [address] [place] [address] PCP - General Internal Medicine 10/05/24 documented as of this encounter
--- OUTSIDE RECORDS SUMMARY | 2024-10-20 09:10 | XMS_ITS | Encounter Summary ---
Author Organization [facility] Address [facility] [place] [address] Care Team Providers Care C Unix Developer Name Role Phone Enedina Mcguire NP Primary Care Provider [phone] Source Comments This information has been disclosed [...] release of HIV test results or diagnoses. [id number] Encounter Details Date Type Department Care Team (Latest Contact Info) Description 10/20/2024 9:10 AM EDT - 10/20/2024 11:59 PM EDT Hospital Encounter [facility] Radiology [address] [place] [phone] System, Provider Not In Discharge Disposition: Home [...] Recorded In the past 12 months has [employer], gas, oil, or water [employer] threatened to shut off services in your [...] AM EDT 10/17/2024 naloxone (NARCAN) 4 mg/actuation [place] Apply 1 spray in one nostril if [...] as of this encounter Care Teams C Unix Developer Relationship Specialty Start Date End Date Enedina Mcguire NP [address] [place] [address] PCP - General Internal Medicine 10/05/24 documented as of this encounter
--- OUTSIDE RECORDS SUMMARY | 2024-10-22 14:15 | XMS_ITS | Encounter Summary ---
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 ENDOSCOPY; Service: Gastroenterology; Laterality: N/A; ENDOSCOPY N/A 07/29/2022 Procedure: ESOPHAGOGASTRODUODENOSCOPY; Surgeon: Presley Montes De Oca MD; Location: [facility] ENDOSCOPY; Service: Gastroenterology; Laterality: N/A; WITH APC [...] goals: Follow-up 1 month for medication management [facility] Pain Management Vazquez Christie PA-C documented in this encounter Plan of Treatment Upcoming Encounters Date Type Department Care Team (Late st Contact Info) Description 12/04/2024 2:15 PM EDT Office Visit [facility] [address] [facility] [address] [place] [address] Vazquez Christie PA-C [address] [facility] [address] [place] [address] Scheduled Orders Name Type Priority [...] documented as of this encounter Care Teams Attendant Child Activity Relationship Specialty Start Date End Date Soco Patel APRN [address] [facility] [address] [facility] [address] [place] [address] PCP - General Family Medicine 10/22/24 10/26/24 documented as of this encounter
--- OUTSIDE RECORDS SUMMARY | 2024-10-25 20:46 | XMS_ITS | Encounter Summary ---
Author Organization [facility] Address [address] [place] [id number] Care Team Providers Care Smash Piecer Name Role Phone Enedina Mcguire NP Primary Care Provider + [phone] Alicia Pantoja RN Unavailable Unavail able Source Comments [...] release of HIV test results or diagnoses. [id number] Reason for Referral * Surgical (Routine) - Authorized Specialty Diagnoses / Procedures Referred By Shane hernadez Referred To Contact Surgery Diagnoses Acute kidney injury superimposed on CKD (CMS-HCC) Procedures Case request operating room: TRANSPLANT KIDNEY with bile duct reconstruction Sveta Judge MD [id number] [facility] [address] [place] [address] Phone: tel: fax: Referral ID Status Reason Start Date Expiration Date V isits Requested Visits Authorized [id number] Authorized 10/26/2024 04/24/2025 1 1 Reason for Visit * Auth/Cert (Routine) Specialty Diagnoses / Procedures Referred By Shane hernadez Referred To Contact Surgical Intensive Care Diagnoses Liver transplant recipient (CMS-HCC) cirrhosis and CKD Procedures LIVER-KIDNEY TRANSPLANT [facility] [address] [place] [address] Phone: tel: Referral ID Status Reason Start Date Expiration Date Visits Re quested Visits Authorized [id number] 1 1 Encounter Details Date Type Department Care Team (Latest Contact Info) Description 10/25/2024 8:46 PM EDT - 11/02/2024 6:23 PM EDT Hospital Encounter [address] [place] [address] Harvey Domínguez III, MD [address] [facility] [address] [place] [address] Lydia Sanchez MD [address] [facility] [place] [address] Acute kidney injury superimposed on CKD ([facility]-HCC) (Primary Dx); Prophylactic antibiotic; Prolonged QT interval; Immunosuppression ([facility]-HCC); Abdominal pain, unspecified abdominal location Discharge Disposition: Home or Self Care WITHOUT [...] Recorded In the past 12 months has [place], [employer], or water [employer] threatened to shut off services in your home? No 10/29/2024 AUDIT-C Answer Date Recorded Q1: How often do you have a drink containing alcohol? Never 10/29/2024 Q2: How many drinks containi ng alcohol do you have on a typical day when you are drinking? Patient does not drink Q3: How often do you have si x or more drinks on one occasion? Never 10/29/2024 PHQ-2 Answer Date Recorded PHQ-2 Total Score 3 09/29/2024 Hunger Vital Sign Answer Date Recorded Within the past 12 months, y ou worried that your food would run out before you got the money to buy more. Never true 10/30/19 25 Within the past 12 months, t he food you bought just didn't last and you didn't have money to get more. Never true 10/29/2024 PRAPARE - Transportation Answer Date Re corded In the past 12 months, has l ack of transportation kept you from medical appointments or from getting medications? No 10/12 In the past 12 months, has l ack of transportation kept you from meetings, work, or from getting things needed for daily living? No 10/29/2024 Housing Stability Vital Sign Answer Bob e Recorded In the last 12 months, was t here a time when you were not able to pay the mortgage or rent on time? No 10/29/2024 In the past 12 months, how m any times have you moved where you were living? 0 10/29/2024 At any time in the past 12 m [facility], were you homeless or living in a fpc (including now)? No 10/29/2024 Yearly Questionnaire Answer Date Record ed Do [...] Sign Reading Time Taken Comments Blood Pressure 142/76 11/02/2024 4:01 PM EDT Pulse 86 11/02/2024 4:01 PM EDT Temperature 36.9 C (98.4 F) 11/02/2024 4:01 PM EDT Respiratory Rate 16 11/02/2024 4:01 PM EDT Oxygen Saturation 100% 11/02/2024 4:01 PM EDT Inhaled Oxygen Concentration 100% 11/02/2024 4 :01 PM EDT Weight 121.5 kg (267 lb 12.8 oz) 11/01/2024 5:41 AM EDT Height 193 cm (6' 4 ) 10/26/2024 11:26 AM EDT Body Mass Index 32.6 10/26/2024 11:26 AM EDT documented in this encounter Functional Status * Audit-C Score Answer Date of Assessment Author 0 10/29/2024 10:02 PM EDT Vandana Vilchis RN * Question Answer Date of Assessment Author Q1: How often do you have a drink containing alcohol? Never 10/29/2024 10:02 PM EDT Vandana Vilchis RN Q2: How many drinks containing alcohol do you have on a typical day when you are drinking? Patient does not drink 10/29/2024 10:02 PM EDT Vandana Vilchis RN Q3: How often do you have six or more drinks on one occasion? Never 10/29/2024 10:02 PM EDT Vandana Vilchis RN documented as of this encounter Discharge Summaries * Shay Plata MD - 11/02/2024 2:04 PM EDT [facility] Liver Transplant Surgical Service Inpatient Discharge Summary Patient: Blair Gilbert : 1985 CSN: [id number] Date of Admission: 10/25/2024 Date of Discharge: 11/02/2024 Attending Physician: Lydia Sanchez MD Admission Diagnoses Past Medical History: Diagnosis Date Alcoholic cirrhosis of liver (CMS-HCC) Esophageal varices (CMS-HCC) Hepatorenal syndrome (CMS-HCC) Hypertension Other hyperlipidemia 07/26/2024 Renal cell carcinoma (CMS-HCC) Thrombocytopenia (CMS-HCC) Thyroid disease Discharge Diagnoses As above Operations and Imaging Studies Surgeries: Surgical/Procedural Cases on this Admission Case IDs Date Procedure Surgeon Location Status [id number] 10/25/24 LIVER TRANSPLANT Harvey Domínguez III, MD OR Comp [id number] 10/27/24 Donor Kidney Transplant , Back Bench Preparation Donor Kidney, Baseline Kidney transplant biopsy , Insertion of Indwelling Stent , Removal of Perihepatic packing Harvey Domínguez III, MD OR Comp Notable Imaging Studies: Results for orders placed during the hospital encounter of 10/25/24 CT ABDOMEN AND PELVIS WO IV CONTRAST Impression Limited examination without intravenous contrast. 1. Postsurgical changes of hepatic transplant. The transplant liver is unremarkable in this noncontrast study. Please also see same day ultrasound report. 2. Right lower quadrant renal transplant with a ureteral stent seen, the proximal tip of the ureteral stent is in the proximal/mid ureter and its distal tip is within the urinary bladder. Gas seen within the collecting systems of the right lower quadrant renal transplant and in the urinary bladder,this may be postsurgical/post procedural in etiology. Correlation with urinalysis would be useful. 3. Small bowel dilatation without a focal transition point seen, this is favored to represent ileus. 4. Small amount of free air in the abdomen is likely postsurgical in etiology. Report Verified by: Winnie Hollis MD at 10/31/2024 4:38 PM EDT Signed by: Winnie Hollis MD on 10/31/2024 4:38 PM Results for orders placed during the hospital encounter of 10/25/24 US ABDOMEN LIMITED Impression RIGHT UPPER QUADRANT Normal sonographic appearance of the transplant liver with small volume of ascites. LIVER DOPPLER Duplex Doppler evaluation of transplant hepatic vasculature within normal limits. Report Verified by: Declan Cerda MD at 10/31/2024 10:35 AM EDT Signed by: Declan Cerda MD on 10/31/2024 10:35 AM Results for orders placed during the hospital encounter of 10/25/24 US Abdomen Limited Narrative EXAM: US ABDOMEN LIMITED EXAM: US DUPLEX [id number] COMPLETE INDICATION: Post-op liver transplant COMPARISON: None TECHNIQUE: Grayscale sonographic imaging was performed with attention to the right upper quadrant; color and spectral (duplex) Doppler analysis of the hepatic vasculature was also performed. FINDINGS: The transplant liver parenchyma is within normal limits in echogenicity and echotexture. No focal lesions seen on imaging provided. No evidence of biliary ductal dilation. The common duct measures 4 mm. No significant perihepatic fluid collections. Small volume of ascites. Right-sided pleural effusion. Pancreas and aorta are not well visualized secondary to poor acoustic windows. The [place] right kidney measures 11.6 cm in length. There is mild pyelocaliectasis. Imaging of the renal transplant withbe reported separately. On duplex Doppler imaging there is hepatopedal flow in the main portal vein. Velocities measure up to 102.8 cm/s. Normal-appearing hepatopedal flow is seen in the intrahepatic right and left portal veins. Spectral duplex Doppler hepatic arterial waveforms are within normal limits in morphology. In the main hepatic artery the resistive index measures up to 0.61. In the right hepatic artery the resistive index measures up to 0.60. In the left hepatic artery the resistive index measures up to 0.73. Hepatic venous waveforms are normal. Flow is present in the intrahepatic portion of the IVC. Other Procedures: None Consulting Services SICU Nutrition Infectious Disease Renal Care Management Discharge Medications Medication List TAKE these medications, which are NEW Quantity/Refills Accu-Chek Guide Glucose Meter Misc Generic drug: blood-glucose meter Use to test blood sugar up to 4 times a day. Quantity: 1 each Refills: 0 Accu-Chek Guide test strips Strp Generic drug: blood sugar diagnostic Use to test blood sugar up to 4 times a day. Quantity: 100 strip Refills: 11 Accu-Chek Softclix Lancets lancets Generic drug: lancets Use to test blood sugar up to 4 times a day. Quantity: 100 each Refills: 11 acetaminophen 325 MG tablet Commonly known as: TYLENOL Take 3 tablets (975 mg total) by mouth every 8 hours. Quantity: 200 tablet Refills: 0 BD Ultra-Fine Lisa Pen Needle 32 gauge x 5/32 Ndle Generic drug: pen needle, diabetic For use with insulin pen. Use as instructed. Quantity: 100 each Refills: 2 Easy Touch Alcohol Prep Pads Padm Generic drug: alcohol swabs Use as instructed. Quantity: 200 each Refills: 1 Eliquis 2.5 mg Tab Generic drug: apixaban Take 1 tablet (2.5 mg total) by mouth 2 times a day for 24 days. Last dose 11/26/24 Quantity: 48 tablet Refills: 0 ergocalciferol 1,250 mcg (50,000 unit) capsule Commonly known as: ERGOCALCIFEROL Take 1 capsule (50,000 Units total) by mouth once a week. Quantity: 4 capsule Refills: 2 famotidine 20 MG tablet Commonly known as: Pepcid Take 1 tablet (20 mg total) by mouth 2 times a day. Quantity: 60 tablet Refills: 2 Fiasp FlexTouch U-100 Insulin 100 unit/mL (3 mL) Inpn Generic drug: insulin aspart (niacinamide) Administer insulin with meals per sliding scale: Blood glucose 150-199 mg/dL =2 units, Blood glucose 200-249 mg/dL =4 units, Blood glucose 250-299 mg/dL =7 units, Blood glucose 300-349 mg/dL =10 units, Blood glucose greater than 349 mg/dL = 12 units Quantity: 15 mL Refills: 2 fluconazole 200 MG tablet Commonly known as: DIFLUCAN Take 1 tablet (200 mg total) by mouth daily for 24 days. Last day 11/26/24 Quantity: 24 tablet Refills: 0 gabapentin 100 MG capsule Commonly known as: NEURONTIN Take 1 capsule (100 mg total) by mouth 3 times a day. Quantity: 90 capsule Refills: 0 HYDROmorphone 2 MG tablet Commonly known as: DILAUDID Take 1 tablet (2 mg total) by mouth every 6 hours as needed for up to 7 days. Quantity: 28 tablet Refills: 0 linezolid 600 mg tablet Commonly known as: ZYVOX Take 1 tablet (600 mg total) by mouth 2 times a day. Quantity: 28 tablet Refills: 0 mycophenolate 250 mg capsule Commonly known as: CELLCEPT Take 2 capsules (500 mg total) by mouth 2 times a day. Quantity: 120 capsule Refills: 5 NIFEdipine 30 MG (OSM) 24 hr tablet Commonly known as: PROCARDIA-XL Take 1 tablet (30 mg total) by mouth daily. Quantity: 30 tablet Refills: 0 polyethylene glycol 17 gram/dose powder Commonly known as: GLYCOLAX Mix one capful (17 grams) in 8 ounces of liquid and drink by mouth daily as needed (Constipation). Quantity: 238 g Refills: 0 predniSONE 5 MG tablet Commonly known as: DELTASONE Take 4 tablets (20 mg total) by mouth daily. Quantity: 120 tablet Refills: 2 Stimulant Laxative Plus 8.6-50 mg per tablet Generic drug: senna-docusate Take 1 tablet by mouth at bedtime as needed for Constipation. Quantity: 30 tablet Refills: 0 sulfamethoxazole-trimethoprim 400-80 mg per tablet Commonly known as: BACTRIM Take 1 tablet by mouth daily. Quantity: 30 tablet Refills: 2 tacrolimus 1 MG capsule Commonly known as: PROGRAF Take 5 capsules (5 mg total) by mouth 2 times a day. Use as directed Quantity: 600 capsule Refills: 5 torsemide 20 MG tablet Commonly known as: DEMADEX Take 1 tablet (20 mg total) by mouth daily. Quantity: 30 tablet Refills: 0 valGANciclovir 450 mg tablet Commonly known as: VALCYTE Take 1 tablet (450 mg total) by mouth daily. Quantity: 30 tablet Refills: 2 TAKE these medication, which have CHANGED Quantity/Refills methocarbamoL 500 MG tablet Commonly known as: ROBAXIN Take 2 tablets (1,000 mg total) by mouth 3 times a day. What changed: how much to take Quantity: 180 tablet Refills: 0 sodium bicarbonate 650 MG tablet Take 2 tablets (1,300 mg total) by mouth 2 times a day. What changed: when to take this Quantity: 28 tablet Refills: 0 TAKE these medications, which you were ALREADY TAKING Quantity/Refills FLUoxetine 20 MG capsule Commonly known as: PROZAC Take 1 capsule (20 mg total) by mouth daily. Quantity: 30 capsule Refills: 2 levothyroxine 75 MCG tablet Commonly known as: SYNTHROID Take 1 tablet (75 mcg total) by mouth every morning before breakfast. Refills: 0 loratadine 10 mg tablet Commonly known as: CLARITIN Take 1 tablet (10 mg total) by mouth daily as needed for Allergies (itching). Quantity: 30 tablet Refills: 0 naloxone 4 mg/actuation [place] Commonly known as: NARCAN Apply 1 spray in one nostril if needed. Call 911. May repeat dose in other nostril if no response in 3 minutes. Quantity: 2 each Refills: 1 STOP taking these medications ciprofloxacin HCl 500 MG tablet Commonly known as: CIPRO Constulose 10 gram/15 mL solution Generic drug: lactulose folic acid 1 MG tablet Commonly known as: FOLVITE midodrine 10 MG tablet Commonly known as: PROAMATINE pantoprazole 40 MG tablet Commonly known as: PROTONIX potassium chloride 20 MEQ tablet Commonly known as: KLOR-CON M20 rifAXIMin 550 mg Tab tablet Commonly known as: XIFAXAN thiamine HCl 100 MG tablet Commonly known as: VITAMIN B-1 ursodioL 300 mg capsule Commonly known as: ACTIGALL zinc sulfate 50 mg zinc (220 mg) capsule Commonly known as: ZINCATE Where to Get Your Medications These medications were sent to [facility] [address] [address] [place] [address] mycophenolate 250 mg capsule tacrolimus 1 MG capsule These medications were sent to [facility] [address] [facility] [address] Hours: Sunday - Sunday: 8:00AM - 6:00PM Accu-Chek Guide Glucose Meter Misc Accu-Chek Guide test strips Strp Accu-Chek Softclix Lancets lancets acetaminophen 325 MG tablet BD Ultra-Fine Lisa Pen Needle 32 gauge x 5/32 Ndle Easy Touch Alcohol Prep Pads Padm Eliquis 2.5 mg Tab ergocalciferol 1,250 mcg (50,000 unit) capsule famotidine 20 MG tablet Fiasp FlexTouch U-100 Insulin 100 unit/mL (3 mL) Inpn fluconazole 200 MG tablet gabapentin 100 MG capsule HYDROmorphone 2 MG tablet linezolid 600 mg tablet methocarbamoL 500 MG tablet NIFEdipine 30 MG (OSM) 24 hr tablet polyethylene glycol 17 gram/dose powder predniSONE 5 MG tablet sodium bicarbonate 650 MG tablet Stimulant Laxative Plus 8.6-50 mg per tablet sulfamethoxazole-trimethoprim 400-80 mg per tablet torsemide 20 MG tablet valGANciclovir 450 mg tablet Reason for Admission Blair Gilbert is a 39 y.o. 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 Hospital Course Patient admitted on 10/25/2024 and underwent Surgical/Procedural Cases on this Admission Case IDs Date Procedure Surgeon Location Status [id number] 10/25/24 LIVER TRANSPLANT Harvey Domínguez III, MD OR Comp [id number] 10/27/24 Donor Kidney Transplant , Back Bench Preparation Donor Kidney, Baseline Kidney transplant biopsy , Insertion of Indwelling Stent , Removal of Perihepatic packing Harvey Domínguez III, MD OR Comp on 10/25/2024 - 10/27/2024. MELD 32. decompensated by hepatic encephalopathy, ascites, varices, and hepato- renal syndrome who underwent OLT on 10/25/2024 and DDKT on 10/27/2024. Other comorbidities include: hypertension and thyroid disease. Cold ischemia time on the liver was 9 hours . See separate op-note for further operativedetails. Post-operative course complicated by no significant events. Explant pathology: no malignancy LFT's were downtrending and on day of discharge AST/ALT 30/66; AlkPhos 126; Tbili 1.6; stable. RENAL - S/p renal transplant. Nephrology following. Urine output was 1 ml/kg/hr on day of discharge. Creatinine trended down throughout admission and was 1.08 on day of discharge. 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 Discharged on scheduled Tylenol, robaxin, gabapentin, and prn dilaudid for 7 days. CV - Patient with initial hemodynamic instability following OLT requiring large volume transfusion.He was initially brought to the SICU on pressors. Following takeback for DDKT, he was weaned from pressors and remained hemodynamically stable throughout rest of postoperative course. Pt with h/o HTN, and was discharged on nifedipine and torsemide. PULM - Patient was extubated following liver transplant and weaned to RA. IS encouraged. ID - patient received janneth-operative antibiotics as per protocol. Patient was initiated on Diflucan, Bactrim and Valcyte for ID prophylaxis. CMV status was D- /R+ (donor/recipient). IMMUNOSUPPRESSION - Immunosuppression was standard. Patient initiated on Cellcept and steroid taperas per protocol Prograf was initiated post-operatively with levels monitored daily. The patient wasdischarged on the following immunosuppresion: Cellcept 500 mg BID; Steroid taper per protocol; Tacro 5 mg BID FEN/GI - patient placed on IVF post-op which were weaned as diet advanced. Patient initiated on clears and advanced as tolerated. Electrolytes replaced prn. Discharged on a bowel regimen of Miralax and Senna-docusate. - Berkowitz was removed and patient voided spontaneously. Post void residual was WNL. Ureteral stent is scheduled for removal on 11/25 [facility] - PT/OT evaluated patient and recommended Home PT/OT, outpatient PT/OT only available. ENDO - A1C is 5.0. Pt was not on diabetic regimen prior to arrival. Patient developed steroid-induced hyperglycemia 2/2 steroid regimen. Discharged home on the following regimen: HDSSI. Patient met w/ primary special educator prior to discharge. HEME - Post-operatively, monitored for bleeding, hemodynamic stability, also serial TEGs, CBCs, anddrain output. Transfused for hgb <7g. At discharge hgb remained stable. Caprini risk score evaluated and patient identified to be Very High risk. Discharged on Eliquis prophylaxis for 30 days post-op. PSYCH - No issues. PROPHYLAXIS - patient initiated on SQ heparin and had SCDs on in bed for DVT prophylaxis. DISPO - patient was discharged to home with outpatient PT/OT and labs to be drawn qMon/Thurs. Patient and family received post-transplant education from help desk coordinator as well as medication teaching from transplant pharmacist. At time of discharge, the patient was tolerating oral food and hydration, voiding spontaneously, had return of bowel function, was ambulating without difficulty, and pain was controlled on oral medications. The patient was determined to be suitable for discharge and the patient felt comfortable with that decision. Condition on Discharge Discharge Condition: stable Discharge Physical Exam: BP 140/88 (BP Location: Right upper arm, Patient Position: Lying) Pulse 90 Temp 98.2 ??F (36.8 ??C) (Oral) Resp 16 Ht 6' 4 (1.93 m) Wt (!) 267 lb 12.8 oz (121.5 kg) SpO2 100% BMI 32.60kg/m?? Physical Exam: Constitutional: No acute distress, cooperative, lying in bed comfortably. HEENT: Moist mucous membranes. Respiratory: Normal work of breathing on room air, equal chest rise bilaterally Cardiovascular: Regular rate and rhythm. Abdomen: Wound with dressing intact, R nia drain with serosanguinous fluid, L nia with thinning bloody fluid. Abdomen is moderately-distended, with mild surgical site tenderness. No rebound or guarding. /Anorectal: Berkowitz in place Extremities: No gross deformities, acyanotic Neuro: Attends well to exam, cooperative, no focal deficits Disposition Home independent Follow-up Appointments Follow up in 2 days Future Appointments Date Time Provider Department Center 11/04/2024 8:40 AM [facility] SURGERY, [facility] 11/04/2024 10:10 AM [facility]PATORENAL [facility] LTRA [facility]OX [facility] 11/25/2024 9:00 AM NAA Mer[facility] 12/02/2024 2:00 PM Bossman Huffman MD [facility] 02/25/2025 10:50 AM Bruno Gonzalez MD [facility] HOX HOX Kenyettafahad Hartman, MS-4 [facility] SHAY PLATA MD 11/02/2024 12:50 PM Cosigned by Lydia Sanchez MD at 11/16/2024 11:01 AM EDT Associated attestation - Lydia Sanchez MD - 11/16/2024 11:01 AM EDT This patient was seen and examined by the SAWYER/Resident team on 11/02/24 I have discussed the patient's care with the team. Immunosuppression reviewed and discussed with multidisciplinary team. I have personally seen and examined this patient on 11/02/24. Lydia Sanchez MD PhD Transplant Surgery documented in this encounter Discharge Instructions * Discharge Instructions* Shay Plata MD - 11/02/2024 1:05 PM EDT Activity: As tolerated. Get out of bed and walk frequently. You should not drive for 2 weeks from your surgery date, and should be off all narcotic pain medications prior to driving. You should not lift over 10# for 6 weeks from your surgery date. Return to work: TBD in clinic follow up appointments. Diet: Regular diet Drain/Dressing/Wound Care: Thida will be removed in clinic approximately 3-4 weeks from your surgery date. You may shower on day of discharge. Wash incision gently with soap and water and pat dry. Do not soak incisions in bath water or swim for at least two weeks. Drainage from incision is common in first few weeks, but call if you have any questions or concerns. Medications: Please call if you have ANY questions about your medications. Please take sure that your immunosuppression medications are taken as directed by the medical staff(ie, timing is very important). Please discuss any new medications with the transplant team prior to starting. Tylenol is OK to take for pain control, but dose should be kept under 2 gm/day. Please discuss withyour cable television access coordinator if you have any question about appropriate dose to take. Other Instructions: Call post-liver transplant clinic with questions [phone] or call [facility] at [phone] and ask for the liver help desk coordinator occupational therapy asst if you experience any of the following: - Worsening pain, nausea, or vomiting not reieved by medications - Temperature greater than 101.5 F or fever/chills - Redness around incision, drainage from incision, or wound edge separation - Chest pain, shortness of breath, persistent dizziness, swelling in one or both legs - Blood sugars consistently above 150 or one reading above 300 - Weight gain of greater than 5# in 24 hours Follow-Up: You will need Labs every Sun/Th - your coordinator will review the results with you and make any necessary medication adjustments. Follow up appts in liver transplant clinic in outpatient building on 3rd floor. Future Appointments Date Time Provider Department Center 11/04/2024 8:40 AM [facility]TRA SURGERY, [facility] 11/04/2024 10:10 AM [facility] LTRA [facility] 11/25/2024 9:00 AM NAA Mer[facility] URO MAB MAB 12/02/2024 2:00 PM Bossman Huffman MD [facility] MARIANGEL MAB MAB 02/25/2025 10:50 AM Bruno Gonzalez MD [facility] HOX HOX documented in this encounter Medications at Time of Discharge alcohol swabs PadM Use as instructed. 200 each 1 11/02/2024 10:20 AM EDT 10/27/2024 blood sugar diagnostic (GLUCOSE BLOOD) Strp Use to test blood sugar up to 4 times a day. 100 strip 11 11/02/2024 10:20 AM EDT 10/27/2024 blood-glucose meter (TRUE METRIX GLUCOSE METER) Misc Use to test blood sugar up to 4 times a day. 1 each 11/02/2024 10:20 AM EDT 10/27/2024 insulin aspart, niacinamide, (FIASP FLEXTOUCH U-100 INSULIN) 100 unit/mL (3 mL) InPn Administer insulin with meals per sliding scale: Blood glucose 150-199 mg/dL =2 units, Blood glucose 200-249 mg/dL =4 units, Blood glucose 250-299 mg/dL =7 units, Blood glucose 300-349 mg/dL =10 units, Blood glucose greater than 349 mg/dL = 12 units 15 mL 2 11/02/2024 10:20 AM EDT 10/27/2024 lancets (ACCU-CHEK SOFTCLIX LANCETS) [facility] [place] test blood sugar up to 4 times a day. 100 each 11 11/02/2024 10:20 AM EDT 10/27/2024 levothyroxine (SYNTHROID) 75 MCG tablet Take 1 tablet (75 mcg total) by mouth every morning before breakfast. loratadine (CLARITIN) 10 mg tablet Take 1 tablet (10 mg total) by mouth daily as needed for Allergies (itching). 30 tablet 10/17/2024 10:24 AM EDT 10/17/2024 methocarbamoL (ROBAXIN) 500 MG tablet Take 2 tablets (1,000 mg total) by mouth 3 times a day. 180 tablet 11/02/2024 10:20 AM EDT 10/30/2024 naloxone (NARCAN) 4 mg/actuation [place] Apply 1 spray in one nostril if needed. Call 911. May repeat dose in other nostril if no response in 3 minutes. 2 each 1 10/17/2024 10:25 AM EDT 10/17/2024 pen needle, diabetic 32 gauge x 5/32 Ndle For use with insulin pen. Use as instructed. 100 each 2 11/02/2024 10:20 AM EDT 10/27/2024 polyethylene glycol (GLYCOLAX) 17 gram/dose powder Mix one capful (17 grams) in 8 ounces of liquid and drink by mouth daily as needed (Constipation). 238 g 11/02/2024 10:20 AM EDT 10/27/2024 senna-docusate (SENNOSIDES-DOCUS ATE SODIUM) 8.6-50 mg per tablet Take 1 tablet by mouth at bedtime as needed for Constipation. 30 tablet 11/02/2024 10:20 AM EDT 10/27/2024 acetaminophen (TYLENOL) 325 MG tablet Take 3 tablets (975 mg total) by mouth every 8 hours. 200 tablet 11/02/2024 10:20 AM EDT 10/27/2024 5 apixaban (ELIQUIS) 2.5 mg Tab Take 1 tablet (2.5 mg total) by mouth 2 times a day for 24 days. Last dose 11/26/24 48 tablet 11/02/2024 10:20 AM EDT 11/02/2024 5 ergocalciferol (ERGOCALCIFEROL) 1,250 mcg (50,000 unit) capsule Take 1 capsule (50,000 Units total) by mouth once a week. 4 capsule 2 11/02/2024 10:20 AM EDT 10/27/2024 5 famotidine (PEPCID) 20 MG tablet Take 1 tablet (20 mg total) by mouth 2 times a day. 60 tablet 2 11/02/2024 10:20 AM EDT 10/27/2024 5 fluconazole (DIFLUCAN) 200 MG tablet Take 1 tablet (200 mg total) by mouth daily for 24 days. Last day 11/26/24 24 tablet 11/02/2024 10:20 AM EDT 11/02/2024 5 FLUoxetine (PROZAC) 20 MG capsule Take 1 capsule (20 mg total) by mouth daily. 30 capsule 2 10/17/2024 10:24 AM EDT 10/17/2024 5 gabapentin (NEURONTIN) 100 MG capsule Take 1 capsule (100 mg total) by mouth 3 times a day. 90 capsule 11/02/2024 10:20 AM EDT 10/31/2024 5 HYDROmorphone (DILAUDID) 2 MG tabletIndications :Abdominal pain, unspecified abdominal location Take 1 tablet (2 mg total) by mouth every 6 hours as needed for up to 7 days. 28 tablet 11/02/2024 10:20 AM EDT 10/31/2024 5 linezolid (ZYVOX) 600 mg tablet Take 1 tablet (600 mg total) by mouth 2 times a day. 28 tablet 11/02/2024 3:06 PM EDT 11/02/2024 5 mycophenolate (CELLCEPT) 250 mg capsule Take 2 capsules (500 mg total) by mouth 2 times a day. 120 capsule 5 10/27/2024 5 NIFEdipine (PROCARDIA-XL) 30 MG (OSM) 24 hr tablet Take 1 tablet (30 mg total) by mouth daily. 30 tablet 11/02/2024 10:20 AM EDT 11/02/2024 5 predniSONE (DELTASONE) 5 MG tablet Take 4 tablets (20 mg total) by mouth daily. 120 tablet 2 11/02/2024 10:20 AM EDT 10/27/2024 5 sodium bicarbonate 650 MG tablet Take 2 tablets (1,300 mg total) by mouth 2 times a day. 28 tablet 11/02/2024 10:20 AM EDT 10/31/2024 5 sulfamethoxazole- trimethoprim (BACTRIM) 400-80 mg per tablet Take 1 tablet by mouth daily. 30 tablet 2 11/02/2024 10:20 AM EDT 10/27/2024 5 tacrolimus (PROGRAF) 1 MG capsule Take 6 capsules (6 mg total) by mouth 2 times a day. Use as directed 600 capsule 5 11/02/2024 5 torsemide (DEMADEX) 20 MG tablet Take 1 tablet (20 mg total) by mouth daily. 30 tablet 11/02/2024 5 valGANciclovir (VALCYTE) 450 mg tablet Take 1 tablet (450 mg total) by mouth daily. 30 tablet 2 11/02/2024 10:20 AM EDT 10/27/2024 5 documented as of this encounter Progress Notes * Shaji Gamino, PharmD - 11/02/2024 10:34 AM EDT Transplant Pharmacy Note Discharge Medication Education, Evaluation and Transition Name: Blair Gilbert Discharge prescriptions were dispensed from Discharge Pharmacy, other than tacrolimus and mycophenolate which were dispensed through [facility] per insurance requirements. Patient's confirms those were received at their home. The patient was given a completed medication instruction card, according to discharge instructions (see medication list below) Medication schedule was adjusted to correlate with outpatient lab draws: 0900/2100 for most liver transplants with home health care labs; corresponding to upcoming clinic appointment times for kidney/pancreas transplants getting blood draws at clinic) Patient and family members were presented with instructional videos regarding discharge medication regimen, and given the opportunity to ask pharmacy team any clarifying questions. Pillbox at discharge (select one): A pillbox and completed medication card was provided for patient/caregiver to fill at home after discharge The patient was instructed to add the following medications from home supply: Levothyroxine, fluoxetine Reviewed discharge medications and importance of adherence with patient/ Information reviewed includes: Brand and generic names Strength(s) supplied; instructed patient to confirm strength and dose while filling pillbox Dose/frequency Indication Expected duration Other drug-specific clinical pearls Importance of adherence in preventing rejection Assessment of patient's capabilities to self-medicate: fair Personal assessment of patient's medication knowledge: fair Expected caregiver involvement?: 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 Need for additional education in clinic?: routine reinforcement only Future medications to be obtained from, if known (select one): Tac/MMF to be filled from [facility] Financial concerns (if any): no Discharge Medication List as of 11/02/2024 5:17 PM START taking these medications Details acetaminophen (TYLENOL) 325 MG tablet Take 3 tablets (975 mg total) by mouth every 8 hours., Starting 10/27/2024, Normal, Disp-200 tablet, R-0 alcohol swabs PadM Use as instructed., Normal, Disp-200 each, R-1 blood sugar diagnostic (GLUCOSE BLOOD) Strp Use to test blood sugar up to 4 times a day., Normal, Disp-100 strip, R-11 blood-glucose meter (TRUE METRIX GLUCOSE METER) [facility] [place] to test blood sugar up to 4 times a day., Normal, Disp-1 each, R-0 ergocalciferol (ERGOCALCIFEROL) 1,250 mcg (50,000 unit) capsule Take 1 capsule (50,000 Units total)by mouth once a week., Starting 10/27/2024, Normal, Disp- 4 capsule, R-2 famotidine (PEPCID) 20 MG tablet Take 1 tablet (20 mg total) by mouth 2 times a day., Starting Sun10/27/2024, Normal, Disp-60 tablet, R-2 gabapentin (NEURONTIN) 100 MG capsule Take 1 capsule (100 mg total) by mouth 3 times a day., Starting Sun10/31/2024, Normal, Disp-90 capsule, R-0 insulin aspart, niacinamide, (FIASP FLEXTOUCH U-100 INSULIN) 100 unit/mL (3 mL) InPn Administer insulin with meals per sliding scale: Blood glucose 150-199 mg/dL =2 units, Blood glucose 200-249 mg/dL=4 units, Blood glucose 250-299 mg/dL =7 units, Blood glucose 300-349 mg/dL =10 units, Blood glucose greater than 349 mg/dL = 12 units, Nor mal, Disp-15 mL, R-2 lancets (ACCU-CHEK SOFTCLIX LANCETS) [facility] [place] to test blood sugar up to 4 times a day., Starting Sun10/27/2024, Normal, Disp-100 each, R-11 linezolid (ZYVOX) 600 mg tablet Take 1 tablet (600 mg total) by mouth 2 times a day., Starting Sun11/02/2024, Normal, Disp-28 tablet, R-0 NIFEdipine (PROCARDIA-XL) 30 MG (OSM) 24 hr tablet Take 1 tablet (30 mg total) by mouth daily., Starting Sun11/02/2024, Normal, Disp-30 tablet, R-0 pen needle, diabetic 32 gauge x 5/32 Ndle For use with insulin pen. Use as instructed., Normal, Disp-100 each, R-2 polyethylene glycol (GLYCOLAX) 17 gram/dose powder Mix one capful (17 grams) in 8 ounces of liquid and drink by mouth daily as needed (Constipation)., Starting Sun10/27/2024, Normal, Disp-238 g, R-0 predniSONE (DELTASONE) 5 MG tablet Take 4 tablets (20 mg total) by mouth daily., Starting Sun10/27/2024, Normal, Disp-120 tablet, R-2 senna-docusate (SENNOSIDES-DOCUSATE SODIUM) 8.6-50 mg per tablet Take 1 tablet by mouth at bedtime as needed for Constipation., Starting Sun10/27/2024, Normal, Disp-30 tablet, R-0 sulfamethoxazole-trimethoprim (BACTRIM) 400-80 mg per tablet Take 1 tablet by mouth daily., Starting Sun10/27/2024, Normal, Disp-30 tablet, R-2 torsemide (DEMADEX) 20 MG tablet Take 1 tablet (20 mg total) by mouth daily., Starting Sun11/02/2024, Normal, Disp-30 tablet, R-0 valGANciclovir (VALCYTE) 450 mg tablet Take 1 tablet (450 mg total) by mouth daily., Starting Sun10/27/2024, Normal, Disp-30 tablet, R-2 HYDROmorphone (DILAUDID) 2 MG tablet Take 1 tablet (2 mg total) by mouth every 6 hours as needed for up to 7 days., Starting Sun10/31/2024, Until Sun11/09/2024 at 2359, Normal, Disp-28 tablet, R-0 CONTINUE these medications which have CHANGED Details apixaban (ELIQUIS) 2.5 mg Tab Take 1 tablet (2.5 mg total) by mouth 2 times a day for 24 days. Lastdose 11/26/24, Starting Sun11/02/2024, Until Sun11/26/2024, Normal, Disp-48 tablet, R-0 fluconazole (DIFLUCAN) 200 MG tablet Take 1 tablet (200 mg total) by mouth daily for 24 days. Last day 11/26/24, Starting Sun11/02/2024, Until Sun11/26/2024, Normal, Disp-24 tablet, R-0 methocarbamoL (ROBAXIN) 500 MG tablet Take 2 tablets (1,000 mg total) by mouth 3 times a day., Starting Sun10/30/2024, Normal, Disp-180 tablet, R-0 mycophenolate (CELLCEPT) 250 mg capsule Take 2 capsules (500 mg total) by mouth 2 times a day., Starting Sun10/27/2024, Normal, Disp-120 capsule, R-5 tacrolimus (PROGRAF) 1 MG capsule Take 6 capsules (6 mg total) by mouth 2 times a day. Use as directed, Starting Sun11/02/2024, Normal, Disp-600 capsule, R-5 sodium bicarbonate 650 MG tablet Take 2 tablets (1,300 mg total) by mouth 2 times a day., Starting Sun10/31/2024, Normal, Disp-28 tablet, R-0 CONTINUE these medications which have NOT CHANGED Details FLUoxetine (PROZAC) 20 MG capsule Take 1 capsule (20 mg total) by mouth daily., Starting Sun10/17/2024, Normal, Disp-30 capsule, R-2 levothyroxine (SYNTHROID) 75 MCG tablet Take 1 tablet (75 mcg total) by mouth every morning before breakfast., Historical Med loratadine (CLARITIN) 10 mg tablet Take 1 tablet (10 mg total) by mouth daily as needed for Allergies (itching)., Starting Sun10/17/2024, Normal, Disp-30 tablet, R-0 naloxone (NARCAN) 4 mg/actuation [place] Apply 1 spray in one nostril if needed. Call 911. May repeat dose in other nostril if no response in 3 minutes., Starting Sun10/17/2024, Normal, Disp-2 each, R-1 STOP taking these medications ciprofloxacin HCl (CIPRO) 500 MG tablet Comments: Reason for Stopping: folic acid (FOLVITE) 1 MG tablet Comments: Reason for Stopping: lactulose (CHRONULAC) 10 gram/15 mL solution Comments: Reason for Stopping: midodrine (PROAMATINE) 10 MG tablet Comments: Reason for Stopping: pantoprazole (PROTONIX) 40 MG tablet Comments: Reason for Stopping: potassium chloride (KLOR-CON M20) 20 MEQ tablet Comments: Reason for Stopping: rifAXIMin (XIFAXAN) 550 mg Tab tablet Comments: Reason for Stopping: thiamine HCl (VITAMIN B-1) 100 MG tablet Comments: Reason for Stopping: ursodioL (ACTIGALL) 300 mg capsule Comments: Reason for Stopping: zinc sulfate (ZINCATE) 50 mg zinc (220 mg) capsule Comments: Reason for Stopping: Eduardo Gamino, Pharm.D., BCTXP Solid Organ Transplant Clinical Specialist Contact via [employer] Secure Chat * Froylan Hendrickson MD - 11/01/2024 8:04 AM EDT Liver Transplant Surgery Progress Note Name: Blair Gilbert CSN: [id number] Date: 11/01/2024 8:06 AM OR Date: 10/25/2024 - 10/27/2024 Subjective: POD 6 liver. POD 5 kidney NAEON, VSS AF CT scan with findings consistent with post-surgical changes consistent with an SLK and bowel gas pattern consistent with an ileus Objective: BP 141/80 (BP Location: Left upper arm, Patient Position: Lying) Pulse 81 Temp 97.5 ??F (36.4 ??C) (Oral) Resp 16 Ht 6' 4 (1.93 m) Wt (!) 267 lb 12.8 oz (121.5 kg) SpO2 100% BMI 32.60 kg/m?? Physical Exam: Constitutional: No acute distress, cooperative, lying in bed comfortably. HEENT: Moist mucous membranes. Respiratory: Normal work of breathing on room air, equal chest rise bilaterally Cardiovascular: Regular rate and rhythm. Abdomen: Wound with dressing intact, R nia drain with serosanguinous fluid, L nia with thinning bloody fluid. Abdomen is moderately-distended, with mild surgical site tenderness. No rebound or guarding. /Anorectal: Berkowitz in place Extremities: No gross deformities, acyanotic Neuro: Attends well to exam, cooperative, no focal deficits Medications Scheduled Meds: acetaminophen 975 mg Oral Q8H albumin human 25% (12.5 g/ 50 mL) 50 mL Intravenous Q30 Min eye ointment Both Eyes BID fluconazole 200 mg Oral Daily 0900 FLUoxetine 20 mg Oral Daily 0900 gabapentin 100 mg Oral TID heparin 5,000 Units Subcutaneous 3 times per day insulin lispro 0-10 Units Subcutaneous Nightly (2100) insulin lispro 0-12 Units Subcutaneous TID AC levothyroxine 75 mcg Oral DAILY 0600 lidocaine 2 patch Transdermal Daily 0900 loratadine 10 mg Oral Daily 0900 melatonin 6 mg Oral Nightly (2100) methocarbamoL 1,000 mg Oral QID mycophenolate 500 mg Oral BID NIFEdipine 30 mg Oral Daily 0900 pantoprazole 40 mg Oral DAILY 0600 polyethylene glycol 17 g Oral BID predniSONE 30 mg Oral Once Followed by [START ON 11/02/2024] predniSONE 25 mg Oral Once Followed by [START ON 11/03/2024] predniSONE 20 mg Oral Daily 0900 senna-docusate 1 tablet Oral BID sodium bicarbonate 1,300 mg Oral TID sulfamethoxazole-trimethoprim 1 tablet Oral Daily 0900 tacrolimus 4 mg Oral BID7 valGANciclovir 450 mg Oral Daily 0900 Continuous: PRN Meds: bisacodyL, 10 mg, Daily PRN dextrose 10% in water, 12.5 g, Q15 Min PRN Or dextrose 10% in water, 25 g, Q15 Min PRN HYDROmorphone, 2 mg, Q4H PRN ondansetron, 4 mg, Q6H PRN Recent Labs 10/30/24 0541 10/31/24 0640 11/01/24 0601 WBC 8.1 6.0 5.9 HGB 10.1* 9.6* 9.5* HCT 28.8* 27.5* 27.8* MCV 87.6 87.6 87.1 PLT 44* 44* 56* Recent Labs 10/30/24 0541 10/31/24 0640 11/01/24 0601 AST 33 26 21 ALT 71* 68* 62* ALKPHOS 80 112 114 BILITOT 3.6* 2.7* 2.0* ALBUMIN 3.2* 3.2* 3.2* 3.2* 3.1* 3.1* BILIDIRECT 1.95* 1.57* 1.06* PROT 4.8* 4.7* 4.6* No results for input(s): INR , PROTIME , PTT in the last 72 hours. Recent Labs 10/30/24 0541 10/31/24 0640 11/01/24 0601 NA 140 141 139 K 3.8 3.5 3.3* CL 111* 111* 108 CO2 17* 20* 22 BUN 62* 54* 37* CREATININE 1.96* 1.75* 1.30 CALCIUM 9.0 8.7 8.2* MG 2.2 1.8 1.5 PHOS 4.6 4.1 2.9 GLUCOSE 116* 136* 163* No results for input(s): LACTATE in the last [address] Abdomen and Pelvis WO IV contrast Result Date: 10/31/2024 IMPRESSION: Limited examination without intravenous contrast. 1. Postsurgical changes of hepatic transplant. The transplant liver is unremarkable in this noncontrast study. Please also see same day ultrasound report. 2. Right lower quadrant renal transplant with a ureteral stent seen, the proximal tip of the ureteral stent is in the proximal/mid ureter and its distal tip is within the urinary bladder. Gas seen within the collecting systems of the right lower quadrant renal transplant and in theurinary bladder, this may be postsurgical/post procedural in etiology. Correlation with urinalysis would be useful. 3. Small bowel dilatation without a focal transition point seen, this is favored torepresent ileus. 4. Small amount of free air in the abdomen is likely postsurgical in etiology. Report Verified by: Winnie Hollis MD at 10/31/2024 4:38 PM EDT US Duplex [id number] Comp Result Date: 10/31/2024 IMPRESSION: RIGHT UPPER QUADRANT Normal sonographic appearance of the transplant liver with small volume of ascites. LIVER DOPPLER Duplex Doppler evaluation of transplant hepatic vasculature within normal limits. Report Verified by: Declan Cerda MD at 10/31/2024 10:35 AM EDT US Abdomen Limited Result Date: 10/31/2024 IMPRESSION: RIGHT UPPER QUADRANT Normal sonographic appearance of the transplant liver with small volume of ascites. LIVER DOPPLER Duplex Doppler evaluation of transplant hepatic vasculature within normal limits. Report Verified by: Declan Cerda MD at 10/31/2024 10:35 AM EDT US Renal Transplant Result Date: 10/31/2024 IMPRESSION: 1. Findings most compatible with small amount of gas within the transplant renal collecting system. Otherwise normal exam. Report Verified by: Declan Cerda MD at 10/31/2024 10:29 AM EDT Assessment: Blair Gilbert is a 39 y.o. 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 Plan: Liver transplant recipient ([facility]) [Z94.4] Neuro: - Multimodal pain control: tylenol, robaxin. PRN oxycodone CV: - HDS - Off pressors - Monitor Qtc (prolonged earlier in admission). Recently started fluc. Continue to monitor QTC withdaily QTC Pulm: - room air - Continue IS - Home loratadine FEN/GI s/p OLT: Tachycardia improved and hgb responsive to transfusion. Will continue to monitor - Liver enzymes generally improving (though bili 4.2 from 2.5) - POD 0 RUQ ultrasound: small areas of parenchymal heterogeneity in liver; patent hepatic vasculature - Repeat ultrasound POD 5 - normal liver small volume ascites - small gas in transplanted kidney otherwise normal - Diet: Regular - Protonix 40 mg - small BM On senna and miralax. - Intermittent nausea. Zofran PRN. If symptoms continue consider ABD CT today with PO contrast -left drain out after US - Repletion for ascites volume loss this morning 3x 25% albumin /Renal s/p DDKT: Bicarb low at 17 this am, plan to start bicitra. - Bicitra 30 mL BID - Cr 1.9. baseline ~3.5, making good urine - POD 0 renal ultrasound: patent renal transplant vasculature and waveforms. If creatine continues to stall repeat US tomorrow. Albumin -d/c berkowitz. PVR WNL Heme: -HGB stable - Transfuse to maintain hgb >7 g/dL - Trend TEG per protocol and transfuse as appropriate (significant OR blood loss 10/26) Endo: - Insulin: NPH Q AM, HDSSI with meals - Home Synthroid MSK: - PT/OT-home PT/OT ID: - Transplant ID following - CMV R+: valganciclovir, 3 months - PJP prophylaxis: bactrim SS, 6 months - Antifungal prophylaxis: stefano. fluc - Perioperative antibiotics complete - Intraoperative cultures: No growth after 2 days, fungal NGTD - Will consider Cdiff testing in the setting of increased bowel movements IS: - Pred taper - Cellcept 500 mg BID - Tacrolimus BID PPX: SQH, SCDs DISPO: floor FROYLAN HENDRICKSON MD Transplant Surgery 8:06 AM 11/01/2024 Cosigned by Lydia Sanchez MD at 11/05/2024 8:57 AM EDT Associated attestation - Lydia Sanchez MD - 11/05/2024 8:57 AM EDT This patient was seen and examined by the [facility]/Resident team on 11/01/24. I have discussed the patient's care with the team. Immunosuppression reviewed and discussed with multidisciplinary team. I have personally seen and examined this patient on 11/01/24. Lydia Sanchez MD PhD Transplant Surgery * Ben Weiss, RD - 10/31/2024 3:24 PM EDT TXP - Follow Up [facility] Medical Nutrition Therapy Transplant Brief Note Diet Order/Nutrition Support: Diet/Nutrition Orders Diet Regular(7) high calorie 3000 kcal a day Frequency: Effective Now Number of Occurrences: Until Specified Order Questions: Additional restrictions: high calorie 3000 kcal a day Suicide/Behavior Risk Modification? No Dietary nutrition supplements Frequency: TID Number of Occurrences: Until Specified Order Questions: Select Supplement: Boost VHC- very high calorie protein supplement ([facility] and [facility] only) Pertinent Information: Pt seen for brief follow-up. Family present during visit. There are concernsfrom both the team and family that pt is not eating well. He is 6 days w/ minimal nutrition. No appetite and intermittent nausea. Discussed need for FT. Pt is amenable. Given increased nutrient needs, will try hypertonic formula for now to reduce overall volume. Goal rate accounts for time off for S ynthroid. Monitor for tolerance. Diet liberalize and Boost VHC ordered. Will continue to follow. EN Access: n/a Nutren 2.0 @ goal rate of 60 mL/hr provides 1200 mL total volume, 2400 kcals, 100 gm of protein, 0 gm fiber, and 830 mL free water. Provide 1 packet Prosource TF20 TID to meet protein needs (240 kcals, 60 gm protein). Total EN regimen will provide 2640 kcals and 160 gm protein. Vital Signs: Temp: [97.4 ??F (36.3 ??C)-98.3 ??F (36.8 ??C)] 97.4 ??F (36.3 ??C) Heart Rate: [78-91] 78 Resp: [16] 16 BP: (142-151)/(87-96) 147/96 Ventilator Settings: Estimated Nutrition Needs: Based on DBW of 93.1 kg Kcals/day: 6210-2723 (25-30 kcals/kg) Protein g/day: 140-190 (1.5-2.0 g/kg) - DBW Carbohydrates g/day: 45-55% of total calories Fluid ml/day: 1 ml/kcal or per MD *Needs based on clinical status at this time and subject to change. Additional Recommendation(s) to Physicians: Start tube feed of Nutren 2.0 at 20 mL/hr Increase by 20 mL/hr every 8 hours as tolerated until goal rate of 60 mL/hr is reached Monitor EN tolerance (abdominal distention, bowel movements) Provide 1 packet of ProSource TF20 TID Kingston Weiss RD, LD Clinical Dietitian - Solid Organ Transplant Contact via [employer] Chat * Keon Dobson - 10/31/2024 2:35 PM EDT [facility] Spiritual Care Volunteer Visit PATIENT NAME: Blair Gilbert ROOM:[id number] Temple Affiliation:Jainism Blair Gilbert was visited by a volunteer today. No needs requiring a visit from a staff charge account authorizer were expressed at that time. Care Provided: Communion, Prayer/ blessing Please page our service at [phone] as needs arise for patient and/or family. Fr Dean Dobson Jainism charge account authorizer Spiritual Care Dept * Brittany Horne PT - 10/31/2024 1:42 PM EDT Physical Therapy Reason Patient Not Seen Name: Blair Gilbert : 1985 Attending Physician: Lydia Sanchez MD Admission Diagnosis: Liver transplant recipient ([facility]) [Z94.4] Date: 10/31/2024 Precautions: Precautions: none Reviewed Pertinent hospital course: Yes Unable to see patient due to: Patient politely declining therapy at this time. Will follow-up with patient as medically appropriate and as schedule permits. Time Attempted: 1338 * Shanel Kaminski - 10/31/2024 12:14 PM EDT Occupational Therapy Treatment Name: Blair Gilbert : 1985 Attending Physician: Lydia Sanchez MD Admission Diagnosis: Liver transplant recipient (CMS-HCC) [Z94.4] Date: 10/31/2024 Room: 8025/[id number] Reviewed Pertinent hospital course: Yes Hospital Course PT/OT: 39 y/o male presents for SLK. 10/25 OR: OLT, TAC. 10/27 return to OR: DDKT, bile duct anastomosis, abdominal closure. Extubated post-op. 10/31 Abd US and Duplex: stable. 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 Precautions: none Activity Level: Activity as tolerated Assist: OT CI Evy Recommendation Recommendation: Home OT Equipment Recommendations: Patient already has needed DME Patient already has needed DME: shower chair Equipment issued by OT: Long-handled sponge, Sock aid, Patient Transportation Driver, Other (comment) Equipment issued by OT comment: leg certified medical records coder Assessment Assessment: Decreased ADL status, Decreased IADLs, Decreased Functional Mobility, Decreased activity tolerance, Decreased Balance, Decreased self-care transfers Prognosis for OT goals: Good Pt was agreeable to participate in OT treatment on this date. Pt required CGA for bed mobility, Arthur for STS from low surface, and CGA for functional mobility for short household distance from bed<>bathroom<>chair with RW. Pt required max A to CGA for ADL participation. Pt expressed increased fatigue and decreased activity tolerance during functional movement. Pt stated he felt slightly SOB but VSS throughout session (02 90-110%, HR in 90s bpm), RN informed. Pt was provided with LEAE to provide addition support with LB dressing. Pt verbalized understanding of LE AE use. Pt remains limited by decreased activity tolerance, LB swelling, decreased balance, LE weakness, and increased pain. Pt presents well below his IND and active PLOF. Pt will continue to benefit from skilled acu te OT services to increase functional independence. Outcome Measures AM-PAC 6 Clicks Daily Activity Inpatient Short Form: OT 6 Clicks Score: 18 Cognition Overall Cognitive Status: Within Functional Limits Arousal/Alertness: Alert Orientation Level: Oriented X4 Behavior: Appropriate;Cooperative;Flat affect Following Commands: Follows all commands and directions without difficulty Safety Judgment: Good awareness of safety precautions Insight: Demonstrated intact insight into limitation and abilities to complete ADL's safely Pain Pain Score: 8 Pain Location: Abdomen Pain Descriptors: Aching Pain Intervention(s): Ambulation/increased activity;Repositioned Therapist reported pain to: RN aware Functional Mobility Bed Mobility Supine to Sit: Contact Guard assistance;head of bed elevated;towards the right;use of handrail Functional Transfers Sit to Stand: Minimal assistance;increased time to complete task;from elevated surface;up to assistive device (Pt completed x2 STS from bed; initial STS bed was low and pt utilized railings to support his STS; second STS pt expressed difficulty with standing so bed was elevated) Sit to Stand Assistive Device: Rolling walker Toilet Transfers: Contact guard assistance;with assistive device;grab bar (Pt utilized x2 grab barsto support his stand from the toilet) Toilet Transfers Assistive Device: Rolling walker Functional Mobility: Contact guard assistance;with assistive device;increased time to complete task Functional Mobility Assistive Device: Rolling walker Balance Sitting - Static: Supervision Sitting - Dynamic: Stand by assistance Standing - Static: Stand-by assistance;With Assistive Device Standing-Static Assistive Device: Rolling walker Standing - Dynamic: Contact Guard Assistance;With Assistive Device Standing-Dynamic Assistive Device: Rolling walker Gait belt used: Yes ADL Grooming Deficit: Pt declined Lower Body Dressing: Maximum assistance Lower Body Dressing Deficit: Set-up;Don/doff L sock;Don/doff R sock Location Assessed LE Dressing: Seated edge of bed Lower Body Dressing Deficit Additional Comments: Pt required increased assistance with LB dressing 2/2 increased LE swelling and abdominal pain Toileting: Contact guard assistance Toileting Deficit: Steadying;Increased time to complete;Grab bar use Location Assessed Toileting: Toilet Position after Treatment/Safety Handoff Position after therapy session: Chair Details: RN notified;visitor present;Call light/ needs within reach Alarms: Chair Alarms Status: Activated and Interfaced with call system Goals Goals to be met in: 1 week Patient stated goal: to go home, to increase independence Patient will complete supine to sit in prep for ADLs: Stand-by assistance Patient will complete functional chair transfer: Stand-by assistance Patient will complete toileting: Stand-by assistance (Goal met and updated 10/31) Patient will complete lower body dressing: Moderate assistance Miscellaneous Goal #1: Pt will tolerate household distance ambulation in prep for IADL task (Goal met and continued 10/31) Halfway Goal : Pt will complete bathing assessment and transfer assisted goal to be met in: 2 weeks Collaborated with: Patient Plan Plan Treatment Interventions: ADL retraining, IADL retraining, Functional transfer training, UE strengthening/ROM, Lower Extremity Intervention, Activity Tolerance training, Equipment eval/education, Energy Conservation, Patient/Family training, Therapeutic Activity, Excercise, Compensatory technique education OT Frequency: minimum 3x/week The plan of care [...] family verbalized understanding. OT Time Start Time: 1125 Stop Time: 1153 Time Calculation (min): 28 min OT Charges $Self Care/ADL/Home Management Trainin-37 mins Problem List Problem List[1] Past Medical History Past Medical History: Diagnosis Date Alcoholic cirrhosis of liver (CMS-HCC) Esophageal varices ([facility]) Hepatorenal syndrome ([facility]-HCC) Hypertension Other hyperlipidemia 07/26/2024 Renal cell carcinoma (CMS-HCC) Thrombocytopenia (CMS-HCC) Thyroid disease Past Surgical History Past Surgical History: Procedure Laterality Date ESOPHAGOGASTRODUODENOSCOPY N/A 10/10/2024 Procedure: EGD; Surgeon: Lino Soto MD; Location: ENDOSCOPY; Service: Gastroenterology; Laterality: N/A; LEFT HEART CATH N/A 10/14/2024 Procedure: Left Heart Cath; Surgeon: Irving Matta MD; Location: CARDIAC CATH LABS; Service:Cath; Laterality: N/A; LIVER-KIDNEY TRANSPLANT N/A 10/25/2024 Procedure: LIVER TRANSPLANT; Surgeon: Harvey Domínguez III, MD; Location: OR; Service: Transplant; Laterality: N/A; NEPHRECTOMY TRANSPLANTED ORGAN N/A 10/27/2024 Procedure: Donor Kidney Transplant , Back Bench Preparation Donor Kidney, Baseline Kidney transplant biopsy , Insertion of Indwelling Stent , Removal of Perihepatic packing; Surgeon: Harvey Domínguez III, MD; Location: OR; Service: Transplant; Laterality: N/A; [1] Patient Active Problem List Diagnosis Decompensated [place] [place]) Acute kidney injury superimposed on CKD ([facility] [place]) Alcohol use disorder Metabolic encephalopathy Hypertension Other hyperlipidemia Thrombocytopenia ([facility] [place]) Renal mass, left Abdominal pain Hypokalemia CKD (chronic kidney disease) stage 4, GFR 15-29 ml/min ([facility] [place]) Metabolic acidosis with normal anion gap and bicarbonate losses GERD (gastroesophageal reflux disease) Hypothyroidism Itching Anemia BRBPR (bright red blood per rectum) SBP (spontaneous bacterial peritonitis) ([facility] [place]) C Diff Diarrhea C. difficile diarrhea Neck pain with history of cervical spinal surgery Cosigned by Evy Phillips OT at 10/31/2024 12:24 PM EDT Associated attestation - Evy Phillips OT - 10/31/2024 12:24 PM EDT I have read and agree with the Student Occupational Therapist's assessment and documentation. * Lavell Kramer MD - 10/31/2024 10:25 AM EDT INFECTIOUS DISEASE PROGRESS NOTE 10/31/2024 10:23 AM Blair Gilbert is a 39 y.o. male patient. Hospital Day: 6 Chief Complaint/Reason for Follow-up: antibiotics Subjective: Afebrile Repeat Qtc 460 today No new concerns Review of Systems Constitutional: Positive for fatigue. Negative for chills and fever. Respiratory: Negative for cough and shortness of breath. Cardiovascular: Positive for leg swelling. Negative for chest pain. Gastrointestinal: Positive for abdominal pain. Negative for diarrhea. Skin: Positive for wound. Negative for rash. Objective: Vital signs: Vitals: 10/31/24 0839 BP: (!) 151/95 Pulse: 80 Resp: 16 Temp: 97.5 ??F (36.4 ??C) SpO2: 100% Temp last 24 hours:Temp (24hrs), Av.7 ??F (36.5 ??C), Min:97.2 ??F (36.2 ??C), Max:98.3 ??F (36.8 ??C) Scheduled Meds: acetaminophen 975 mg Oral Q8H citric acid-sodium citrate 30 mL Oral BID eye ointment Both Eyes BID fluconazole 200 mg Oral Daily 0900 FLUoxetine 20 mg Oral Daily 0900 gabapentin 100 mg Oral TID heparin 5,000 Units Subcutaneous 3 times per day insulin lispro 0-10 Units Subcutaneous Nightly (2099) insulin lispro 0-12 Units Subcutaneous TID AC levothyroxine 75 mcg Oral DAILY 0600 lidocaine 2 patch Transdermal Daily 0900 loratadine 10 mg Oral Daily 0900 melatonin 6 mg Oral Nightly (2100) methocarbamoL 1,000 mg Oral QID mycophenolate 500 mg Oral BID pantoprazole 40 mg Oral DAILY 0600 polyethylene glycol 17 g Oral BID [START ON 11/01/2024] predniSONE 30 mg Oral Once Followed by [START ON 11/02/2024] predniSONE 25 mg Oral Once Followed by [START ON 11/03/2024] predniSONE 20 mg Oral Daily 0900 senna-docusate 1 tablet Oral BID sulfamethoxazole-trimethoprim 1 tablet Oral Daily 0900 tacrolimus 3 mg Oral BID7 valGANciclovir 450 mg Oral Daily 0900 Continuous Infusions: PRN Meds:bisacodyL, dextrose 10% in water OR dextrose 10% in water, HYDROmorphone, ondansetron Intake/Output last 3 shifts: Date 10/30/24699 - 10/31/2465810/31/24699 - 11/01/24 0659 Shift 8806-5825 1878-4159 7610-6908 24 Hour Total 5814-4433 8255-6966 6743-0385 24 Hour Total INTAKE P.O. 240 240 P.O. 240 240 Shift Total(mL/kg) 240(1.9) 240(1.9) OUTPUT Urine(mL/kg/hr) 1850(1.8) 600(0.6) 600(0.6) 3050(1) 350 350 Urine 800 598 870 5306 350 350 Urine Occurrence 2 x 2 x Output (mL) ([REMOVED] IUC (Berkowitz) Triple-lumen (3-Way) 18 Fr.) 1050 1050 Drains 100 25 125 Output (mL) ([REMOVED] Drain Abdomen Inferior;Right) 100 100 Output (mL) (Drain 2 Left;Superior) 25 25 Stool Stool Occurrence 1 x 1 x Shift Total(mL/kg) 1950(15.1) 625(4.8) 600(4.7) 3175(25) 350(2.8) 350(2.8) Weight (kg) 129.2 129.2 126.8 126.8 126.8 126.8 126.8 126.8 Physical Exam Constitutional: General: He is not in acute distress. HENT: Head: Normocephalic and atraumatic. Eyes: General: Scleral icterus present. Conjunctiva/sclera: Conjunctivae normal. Pulmonary: Breath sounds: Rales present. No wheezing. Abdominal: Tenderness: There is abdominal tenderness. Comments: Incision clean and dressed Musculoskeletal: General: Swelling present. No deformity. Skin: General: Skin is warm. Coloration: Skin is not jaundiced. Neurological: General: No focal deficit present. Mental Status: He is alert and oriented to person, place, and time. Labs: Lab 10/31/24 0640 WBC 6.0 HEMOGLOBIN 9.6* HEMATOCRIT 27.5* MEAN CORPUSCULAR VOLUME 87.6 PLATELETS 44* Lab 10/31/24 0640 SODIUM 141 POTASSIUM 3.5 CHLORIDE 111* CO2 20* BUN 54* CREATININE 1.75* GLUCOSE 136* CALCIUM 8.7 MAGNESIUM 1.8 PHOSPHORUS 4.1 Lab 10/31/24 0640 ALK PHOS 112 AST 26 ALT 68* BILIRUBIN TOTAL 2.7* BILIRUBIN DIRECT 1.57* Lab 10/28/24 1109 10/25/24 2343 10/25/24 2217 PROTHROMBIN TIME 14.3 < > 21.7* INR POC -- < > -- INR 1.1 < > 1.8* APTT -- -- 41.7* < > = values in this interval not displayed. Assessment/Plan: 39 y.o. M s/p SLK with prolonged Qtc on routine EKG Prophylactic abx - CMV R+, will need 3 months VGCV - will need 6 months PJP proph, ideally with Bactrim SS daily - needs 1 month antifungal prophylaxis; end 11/25/24 - repeat EKG today with Qtc ~460 after Flucoanzole was resumed - ok to complete his prophylaxis course with Fluconazole 2. 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 POD 4 kidney Some intermittent nausea. Small BM Abdominal and back pain not controlled by dilaudid Objective: BP (!) 151/95 (BP Location: Right upper arm, Patient Position: Lying) Comment: rn notified Pulse 80 Temp 97.5 ??F (36.4 ??C) (Oral) Resp 16 Ht 6' 4 (1.93 m) Wt (!) 279 lb 8 oz (126.8 kg) SpO2 100% BMI 34.02 kg/m?? Physical Exam: Constitutional: No acute distress, cooperative, lying in bed comfortably. HEENT: Moist mucous membranes. Respiratory: Normal work of breathing on room air, equal chest rise bilaterally Cardiovascular: Regular rate and rhythm. Abdomen: Wound with dressing intact, R nia drain with serosanguinous fluid, L nia with thinning bloody fluid. Abdomen is moderately-distended, with mild surgical site tenderness. No rebound or guarding. /Anorectal: Berkowitz in place Extremities: No gross deformities, acyanotic Neuro: Attends well to exam, cooperative, no focal deficits Medications Scheduled Meds: acetaminophen 975 mg Oral Q8H citric acid-sodium citrate 30 mL Oral BID eye ointment Both Eyes BID fluconazole 200 mg Oral Daily 0900 FLUoxetine 20 mg Oral Daily 0900 gabapentin 100 mg Oral TID heparin 5,000 Units Subcutaneous 3 times per day insulin lispro 0-10 Units Subcutaneous Nightly (2100) insulin lispro 0-12 Units Subcutaneous TID AC levothyroxine 75 mcg Oral DAILY 0600 lidocaine 2 patch Transdermal Daily 0900 loratadine 10 mg Oral Daily 0900 melatonin 6 mg Oral Nightly (2100) methocarbamoL 1,000 mg Oral QID mycophenolate 500 mg Oral BID pantoprazole 40 mg Oral DAILY 0600 polyethylene glycol 17 g Oral BID [START ON 11/01/2024] predniSONE 30 mg Oral Once Followed by [START ON 11/02/2024] predniSONE 25 mg Oral Once Followed by [START ON 11/03/2024] predniSONE 20 mg Oral Daily 0900 senna-docusate 1 tablet Oral BID sulfamethoxazole-trimethoprim 1 tablet Oral Daily 0900 tacrolimus 3 mg Oral BID7 valGANciclovir 450 mg Oral Daily 0900 Continuous: PRN Meds: bisacodyL, 10 mg, Daily PRN dextrose 10% in water, 12.5 g, Q15 Min PRN Or dextrose 10% in water, 25 g, Q15 Min PRN HYDROmorphone, 2 mg, Q4H PRN ondansetron, 4 mg, Q6H PRN Recent Labs 10/29/24 0507 10/30/24 0541 10/31/24 0640 WBC 7.8 8.1 6.0 HGB 9.0* 10.1* 9.6* HCT 26.7* 28.8* 27.5* MCV 87.4 87.6 87.6 PLT 41* 44* 44* Recent Labs 10/29/24 0507 10/30/24 0541 10/31/24 0640 AST 31 33 26 ALT 88* 71* 68* ALKPHOS 51 80 112 BILITOT 4.2* 3.6* 2.7* ALBUMIN 3.5 3.5 3.2* 3.2* 3.2* 3.2* BILIDIRECT 2.85* 1.95* 1.57* PROT 5.2* 4.8* 4.7* Recent Labs 10/28/24 1109 INR 1.1 PROTIME 14.3 Recent Labs 10/29/24 0507 10/30/24 0541 10/31/24 0640 NA 144 140 141 K 3.8 3.8 3.5 CL 113* 111* 111* CO2 17* 17* 20* BUN 57* 62* 54* CREATININE 1.93* 1.96* 1.75* CALCIUM 9.3 9.0 8.7 MG 2.1 2.2 1.8 PHOS 4.8* 4.6 4.1 GLUCOSE 110* 116* 136* Recent Labs 10/28/24 1109 LACTATE 0.3* Imaging US Duplex [id number] Comp Result Date: 10/28/2024 IMPRESSION: ABDOMINAL ULTRASOUND Heterogeneous echogenicity in the region of the gallbladder fossa suspicious for a hematoma. Perihepatic fluid. ABDOMINAL DOPPLER Patent hepatic vasculature with antegrade flow. Report Verified by: Scotty Wasserman MD at 10/28/2024 4:42 PM EDT US Abdomen Limited Result Date: 10/28/2024 IMPRESSION: ABDOMINAL ULTRASOUND Heterogeneous echogenicity in the region of the gallbladder fossa suspicious for a hematoma. Perihepatic fluid. ABDOMINAL DOPPLER Patent hepatic vasculature with antegrade flow. Report Verified by: Scotty Wasserman MD at 10/28/2024 4:42 PM EDT Assessment: Blair Gilbert is a 39 y.o. 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 Plan: Liver transplant recipient ([facility]) [Z94.4] Neuro: - Multimodal pain control: tylenol, robaxin. PRN oxycodone CV: - HDS - Off pressors - Monitor Qtc (prolonged earlier in admission). Recently started fluc. Continue to monitor QTC withdaily QTC Pulm: - room air - Continue IS - Home loratadine FEN/GI s/p OLT: Tachycardia improved and hgb responsive to transfusion. Will continue to monitor - Liver enzymes generally improving (though bili 4.2 from 2.5) - POD 0 RUQ ultrasound: small areas of parenchymal heterogeneity in liver; patent hepatic vasculature - Repeat ultrasound POD 5 today - Diet: Regular - Protonix 40 mg - small BM On senna and miralax. - Intermittent nausea. Zofran PRN. If symptoms continue consider ABD CT today with PO contrast -left drain out after US /Renal s/p DDKT: Bicarb low at 17 this am, plan to start bicitra. - Bicitra 30 mL BID - Cr 1.9. baseline ~3.5, making good urine - POD 0 renal ultrasound: patent renal transplant vasculature and waveforms. If creatine continues to stall repeat US tomorrow. Albumin -d/c berkowitz. PVR WNL Heme: -HGB stable - Transfuse to maintain hgb >7 g/dL - Trend TEG per protocol and transfuse as appropriate (significant OR blood loss 10/26) Endo: - Insulin: NPH Q AM, HDSSI with meals - Home Synthroid MSK: - PT/OT-home PT/OT ID: - Transplant ID following - CMV R+: valganciclovir, 3 months - PJP prophylaxis: bactrim SS, 6 months - Antifungal prophylaxis: stefano. fluc - Perioperative antibiotics complete - Intraoperative cultures: No growth after 2 days, fungal NGTD IS: - Pred taper - Cellcept 500 mg BID - Tacrolimus BID PPX: SQH, SCDs DISPO: floor PRITI GEIGER CNP Transplant Surgery 10:06 AM 10/31/2024 Cosigned by Lydia Sanchez MD at 10/31/2024 11:16 AM EDT Associated attestation - Lydia Sanchez MD - 10/31/2024 11:16 AM EDT This patient was seen and examined by the [facility]/Resident team on 10/31/2024. I have discussed the patient's care with the team. Immunosuppression reviewed and discussed with multidisciplinary team. I have personally seen and examined this patient on 10/31/2024. AFVSS Pain well controlled Liver allograft function excellent Cr normalizing Drains serosang Reg diet Liver duplex and CT scan today HSQ IS: tacro, mmf, prednisone Lydia Sanchez MD PhD Transplant Surgery * Caron Santos, [employer] - 10/31/2024 9:30 AM EDT Images from the original note were not included. Transplant Nephrology Progress Note Patient: Blair Gilbert [id number] Date of Admit: 10/25/2024. LOS: 6 days. Referring physician: Lydia Sanchez MD Chief Complaint: Direct admission for SLK Reason for Consult: Co-management of SLK recipient Interval History: Patient seen and evaluated at bedside. - NAEO. - Denies chest pain, SOB, N/V/D, and dysuria. Reports ongoing abdominal pain. US pending this am - AF, HDS; BP today: (!) 151/95 - Allograft function: Cr 1.75, 24 hour urine output: 2,400 mL Review of Systems: 10 point ROS was negative unless otherwise specified. ALLERGY: Allergies[1] PHYSICAL EXAM: Temp: [97.5 ??F (36.4 ??C)-98.3 ??F (36.8 ??C)] 97.5 ??F (36.4 ??C) Heart Rate: [80-93] 80 Resp: [16-18] 16 BP: (133-151)/(87-98) 151/95 Wt Readings from Last 3 Encounters: 10/31/24 (!) 279 lb 8 oz (126.8 kg) 10/10/24 (!) 263 lb 8 oz (119.5 kg) 09/05/24 (!) 262 lb 9.6 oz (119.1 kg) Physical Exam Vitals reviewed. Constitutional: General: He is not in acute distress. HENT: Head: Normocephalic and atraumatic. Eyes: Extraocular Movements: Extraocular movements intact. Cardiovascular: Rate and Rhythm: Normal rate and regular rhythm. Pulmonary: Effort: Pulmonary effort is normal. No respiratory distress. Breath sounds: Normal breath sounds. Abdominal: Palpations: Abdomen is soft. Musculoskeletal: Right lower leg: Edema present. Left lower leg: Edema present. Skin: General: Skin is warm and dry. Neurological: Mental Status: He is alert and oriented to person, place, and time. Psychiatric: Mood and Affect: Mood normal. Behavior: Behavior normal. Reviewed/updated 10/31/2024 MEDS: Scheduled Meds: acetaminophen 975 mg Oral Q8H citric acid-sodium citrate 30 mL Oral BID eye ointment Both Eyes BID fluconazole 200 mg Oral Daily 0900 FLUoxetine 20 mg Oral Daily 0900 gabapentin 100 mg Oral TID heparin 5,000 Units Subcutaneous 3 times per day insulin lispro 0-10 Units Subcutaneous Nightly (2100) insulin lispro 0-12 Units Subcutaneous TID AC levothyroxine 75 mcg Oral DAILY 0600 lidocaine 2 patch Transdermal Daily 0900 loratadine 10 mg Oral Daily 0900 melatonin 6 mg Oral Nightly (2100) methocarbamoL 1,000 mg Oral QID mycophenolate 500 mg Oral BID pantoprazole 40 mg Oral DAILY 0600 polyethylene glycol 17 g Oral BID [START ON 11/01/2024] predniSONE 30 mg Oral Once Followed by [START ON 11/02/2024] predniSONE 25 mg Oral Once Followed by [START ON 11/03/2024] predniSONE 20 mg Oral Daily 0900 senna-docusate 1 tablet Oral BID sulfamethoxazole-trimethoprim 1 tablet Oral Daily 0900 tacrolimus 3 mg Oral BID7 valGANciclovir 450 mg Oral Daily 0900 Continuous Infusions: DATA: Reviewed in EMR Radiology last 48 hours: Reviewed in EMR Assessment: Blair Gilbert is a pleasant 39 y.o. 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 Presents as direct admission for SLK on 10/25/24. Medical problems being addressed in this encounter include the following: CKD IIIb/IV: - Presumed s/t HRS - [employer]: Yovanny Curran at [facility] Allograft Function: S/p SLK 10/25- (kidney preemptive) - OLT 10/25-. EBL 19 L. Blood: 11 pRBC, 11 FFP, 2 plts, 1 cryo. Cell Saver 6.1 L. IVF: 9 L crystalloid. Pressors: Levo, Vaso, Epi, and methylene blue. - DDKT, washout, and bile duct reconstruction 6/16/25. cPRA 63 as of 10/15/24. DCD - NRP. KDPI 20. tCr 0.2. Kidney CIT 33:17 and WIT 27 min. Virtual and flow crossmatches negative. KT 10/27/24: WNL Renal Function: Cr: 1.75 Bun: 54 Pre-op Cr: 3.87 Cr trend: Down UOP: 3 L Electrolytes: Na: 141 K: 3.5 Cl: 111 Ma.8 Ca: 8.7 Phos: 4.1 Hypokalemia, improving with repletion Immunosuppression: Per transplant surgery. Current IS: Pred taper, MMF 500 mg BID, and tacrolimus 3 mg BID FK level: 8.4 (9.5) FK goal: 10-12 per protocol Infectious disease/ppx: Relevant serologies: CMV D-/R+, EBV D+/R+, Toxo D-/R- CMV ppx: Valcyte PJP ppx: Bactrim Fungal ppx: Fluconazole Estimated Creatinine Clearance: 80.8 mL/min (A) (based on SCr of 1.75 mg/dL (H)). Donor urine culture w/ 6K cfu/mL Burkholderia from Ebrkowitz sample. BMD: Ca: 8.7 PO4: 4.1 Alb: 3.2; 3.2 PTH: 36.0 on 10/25/2024 Vit D: 7.1 on 10/08/2024 Acid/base electrolytes: NAGMA - Improving with Bicitra 30 mL BID Anion Gap: 10 Bicarb: 20 Lab Results Component Value Date CREATININE 1.75 (H) 10/31/2024 BUN 54 (H) 10/31/2024 NA 141 10/31/2024 K 3.5 10/31/2024 CL 111 (H) 10/31/2024 CO2 20 (L) 10/31/2024 Lab Results Component Value Date PHART 7.37 10/27/2024 PCO2 35 10/27/2024 PO2ART 92 10/27/2024 [id number] 21 (L) 10/27/2024 BEART -4.6 (L) 10/27/2024 [id number] 95.4 10/27/2024 [id number] 98 10/27/2024 Hemodynamics / Cardiovascular Status: Goal <130/80 BP: (!) 151/95 Volume Status: Intake/Output Summary (Last 24 hours) at 10/31/2024 1146 Last data filed at 10/31/2024 0839 Gross per 24 hour Intake 240 ml Output 2425 ml Net -2185 ml Heme/Anemia of Chronic Disease: WBC 6.0 Goal HgB 10-12 mg/dL Hgb 9.6 Plt 44 Iron 128 on 10/25/2024 Ferritin 623.2 on 10/25/2024 TIBC: SEE COMMENT on 10/25/2024 % Iron Saturation: SEE COMMENT on 10/25/2024 [id number]: No results found for requested labs within last 3600 days. on No results found for requested labs within last 3600 days. Folate: No results found for requested labs within last 3600 days. on No results found for requested labs within last 3600 days. LDH: 102 on 10/08/2024 Haptoglobin: <30 on 10/08/2024 Bilirubin, Direct: No results found for requested labs within last 3600 days. on No results found for requested labs within last 3600 days. Bilirubin, Indirect: No results found for requested labs within last 3600 days. on No results foundfor requested labs within last 3600 days. General Recommendations: - Monitor urine output closely, strict I/O, daily weights. - Avoid nephrotoxins (NSAIDs, NIKKI-I, ARB, Contrast dye) - Monitor renal panel with phosphorus and magnesium levels. - Renally dose all medications. - Avoid supratherapeutic FK levels. Plan: - Cr improving with good UOP, continue to monitor - IS per transplant surgery - Renally dosed prophylaxis - Check UA and urine cx per ID recs - MA: PO Bicarb - Hgb and WBC stable. Plts low, but stable. Continue to monitor CBC. Case discussed with consult attending. Agreed on the plan of care Please do not hesitate to give us a call for any questions. All recommendations are preliminary until attending attestation. Lauren Santos, DNP, [employer] OPERATOR, SALVAGER- Transplant Nephrology [phone] Preferred contact: secure chat The HPI, ROS, physical exam, test results, and assessment & plan were reviewed and copied forward (with edits) from a note written by me on 10/30/24. I have reviewed and updated the history, physical exam, data, assessment, and plan of the note so that it reflects my evaluation and management ofthe patient. [1] Allergies Allergen Reactions Adhesive Itching and Rash Tegaderm adhesive on Ivs, pt states its tolerable Duloxetine Other (See Comments) Became Manic * Lavell Kramer MD - 10/30/2024 11:09 AM EDT INFECTIOUS DISEASE PROGRESS NOTE 10/30/2024 11:06 AM Blair Gilbert is a 39 y.o. male patient. Hospital Day: 5 Chief Complaint/Reason for Follow-up: antibiotics Subjective: Afebrile Resting comfortably Repeat Qtc 460 Resumed Fluc Review of Systems Constitutional: Positive for fatigue. Negative for chills and fever. Respiratory: Negative for cough and shortness of breath. Cardiovascular: Positive for leg swelling. Negative for chest pain. Gastrointestinal: Positive for abdominal pain. Negative for diarrhea. Skin: Positive for wound. Negative for rash. Objective: Vital signs: Vitals: 10/30/24 0718 BP: (!) 146/100 Pulse: 93 Resp: 15 Temp: 97.9 ??F (36.6 ??C) SpO2: 95% Temp last 24 hours:Temp (24hrs), Av.6 ??F (36.4 ??C), Min:97.4 ??F (36.3 ??C), Max:97.9 ??F (36.6 ??C) Scheduled Meds: acetaminophen 975 mg Oral Q8H albumin human 5% 250 mL Intravenous Q3HRS bisacodyL 10 mg Rectal Once citric acid-sodium citrate 30 mL Oral BID eye ointment Both Eyes BID fluconazole 200 mg Oral Daily 0900 FLUoxetine 20 mg Oral Daily 0900 heparin 5,000 Units Subcutaneous 3 times per day insulin lispro 0-10 Units Subcutaneous Nightly (2100) insulin lispro 0-12 Units Subcutaneous TID AC insulin NPH 7 Units Subcutaneous QAM levothyroxine 75 mcg Oral DAILY 0600 lidocaine 2 patch Transdermal Daily 0900 loratadine 10 mg Oral Daily 0900 melatonin 6 mg Oral Nightly (2100) methocarbamoL 1,000 mg Oral QID mycophenolate 500 mg Oral BID pantoprazole 40 mg Oral DAILY 0600 polyethylene glycol 17 g Oral BID [START ON 10/31/2024] predniSONE 40 mg Oral Once Followed by [START ON 11/01/2024] predniSONE 30 mg Oral Once Followed by [START ON 11/02/2024] predniSONE 25 mg Oral Once Followed by [START ON 11/03/2024] predniSONE 20 mg Oral Daily 0900 senna-docusate 1 tablet Oral BID sulfamethoxazole-trimethoprim 1 tablet Oral Daily 0900 tacrolimus 3 mg Oral BID valGANciclovir 450 mg Oral Daily 0900 Continuous Infusions: PRN Meds:bisacodyL, dextrose 10% in water OR dextrose 10% in water, ondansetron, oxyCODONE OR oxyCODONE Intake/Output last 3 shifts: Date 10/29/24 07 - 10/30/24 0659 10/30/24 07 - 10/31/24 0659 Shift 8408-6064 2681-3142 0465-9930 24 Hour Total 7220-1965 5525-5733 7098-1214 24 Hour Total INTAKE P.O. 240 240 480 P.O. 240 240 480 IV Piggyback 87.2 87.2 Volume (mL) (micafungin (MYCAMINE) 50 mg in sodium chloride 0.9 % 100 mL [id number] IVPB) 87.2 87.2 Shift Total(mL/kg) 240(2) 327.2(2.7) 567.2(4.4) OUTPUT Urine(mL/kg/hr) 600(0.6) 1175(1.2) 450(0.4) 2225(0.7) 550 550 Output (mL) (IUC (Berkowitz) Triple-lumen (3-Way) 18 Fr.) 600 5823 927 2769 550 550 Drains 175 245 100 520 Output (mL) (Drain Abdomen Inferior;Right) 150 225 100 475 Output (mL) (Drain 2 Left;Superior) 25 20 45 Stool Stool Occurrence 0 x 0 x Shift Total(mL/kg) 775(6.3) 1420(11.6) 550(4.3) 2745(21.2) 550(4.3) 550(4.3) Weight (kg) 122.5 122.5 129.2 129.2 129.2 129.2 129.2 129.2 Physical Exam Constitutional: General: He is not in acute distress. HENT: Head: Normocephalic and atraumatic. Eyes: General: Scleral icterus present. Conjunctiva/sclera: Conjunctivae normal. Pulmonary: Breath sounds: Rales present. No wheezing. Abdominal: Tenderness: There is abdominal tenderness. Comments: Incision clean and dressed Musculoskeletal: General: Swelling present. No deformity. Skin: General: Skin is warm. Coloration: Skin is not jaundiced. Neurological: General: No focal deficit present. Mental Status: He is alert and oriented to person, place, and time. Labs: Lab 10/30/24 0541 WBC 8.1 HEMOGLOBIN 10.1* HEMATOCRIT 28.8* MEAN CORPUSCULAR VOLUME 87.6 PLATELETS 44* Lab 10/30/24 0541 SODIUM 140 POTASSIUM 3.8 CHLORIDE 111* CO2 17* BUN 62* CREATININE 1.96* GLUCOSE 116* CALCIUM 9.0 MAGNESIUM 2.2 PHOSPHORUS 4.6 Lab 10/30/24 0541 ALK PHOS 80 AST 33 ALT 71* BILIRUBIN TOTAL 3.6* BILIRUBIN DIRECT 1.95* Lab 10/28/24 1109 10/25/24 2343 10/25/24 2217 PROTHROMBIN TIME 14.3 < > 21.7* INR POC -- < > -- INR 1.1 < > 1.8* APTT -- -- 41.7* < > = values in this interval not displayed. Assessment/Plan: 39 y.o. M s/p SLK with prolonged Qtc on routine EKG Prophylactic abx - CMV R+, will need 3 months VGCV - will need 6 months PJP proph, ideally with Bactrim SS daily - needs 1 month antifungal prophylaxis; end 11/25/24 - repeat EKG today with Qtc ~460 and Flucoanzole was resumed - check another EKG tomorrow AM and if Qtc not longer, ok to complete the course with Fluconazole - if Qtc prolonged again, could consider weekly IV Rezafungin 400mg IV once then 200mg weekly or oral Isavuconazole 372mg daily to complete the month of prophylaxis Lavell Kramer MD 10/30/[phone] * Priti Geiger, [employer] - 10/30/2024 10:36 AM EDT Liver Transplant Surgery Progress Note Name: Blair Gilbert CSN: [id number] Date: 10/30/2024 10:37 AM OR Date: 10/25/2024 - 10/27/2024 Subjective: 3 Days Post-Op HDS afebrile. Alert and oriented. No BM yet. Passing gas. Some nausea. Objective: BP (!) 146/100 (BP Location: Left upper arm, Patient Position: Lying) Pulse 93 Temp 97.9 ??F (36.6 ??C) (Oral) Resp 15 Ht 6' 4 (1.93 m) Wt (!) 284 lb 12.8 oz (129.2 kg) SpO2 95% BMI 34.67 kg/m?? Physical Exam: Constitutional: No acute distress, cooperative, lying in bed comfortably. HEENT: Moist mucous membranes. Respiratory: Normal work of breathing on room air, equal chest rise bilaterally Cardiovascular: Regular rate and rhythm. Abdomen: Wound with dressing intact, R nia drain with serosanguinous fluid, L nia with thinning bloody fluid. Abdomen is moderately-distended, with mild surgical site tenderness. No rebound or guarding. /Anorectal: Berkowitz in place Extremities: No gross deformities, acyanotic Neuro: Attends well to exam, cooperative, no focal deficits Medications Scheduled Meds: acetaminophen 975 mg Oral Q8H albumin human 5% 250 mL Intravenous Q3HRS bisacodyL 10 mg Rectal Once citric acid-sodium citrate 30 mL Oral BID eye ointment Both Eyes BID fluconazole 200 mg Oral Daily 0900 FLUoxetine 20 mg Oral Daily 0900 heparin 5,000 Units Subcutaneous 3 times per day insulin lispro 0-10 Units Subcutaneous Nightly (2099) insulin lispro 0-12 Units Subcutaneous TID AC insulin NPH 7 Units Subcutaneous QAM levothyroxine 75 mcg Oral DAILY 0600 lidocaine 2 patch Transdermal Daily 0900 loratadine 10 mg Oral Daily 0900 melatonin 6 mg Oral Nightly (2099) methocarbamoL 1,000 mg Oral QID mycophenolate 500 mg Oral BID pantoprazole 40 mg Oral DAILY 0600 polyethylene glycol 17 g Oral BID [START ON 10/31/2024] predniSONE 40 mg Oral Once Followed by [START ON 11/01/2024] predniSONE 30 mg Oral Once Followed by [START ON 11/02/2024] predniSONE 25 mg Oral Once Followed by [START ON 11/03/2024] predniSONE 20 mg Oral Daily 0900 senna-docusate 1 tablet Oral BID sulfamethoxazole-trimethoprim 1 tablet Oral Daily 0900 tacrolimus 3 mg Oral BID valGANciclovir 450 mg Oral Daily 0900 Continuous: PRN Meds: bisacodyL, 10 mg, Daily PRN dextrose 10% in water, 12.5 g, Q15 Min PRN Or dextrose 10% in water, 25 g, Q15 Min PRN ondansetron, 4 mg, Q6H PRN oxyCODONE, 5 mg, Q4H PRN Or oxyCODONE, 10 mg, Q4H PRN Recent Labs 10/28/24200310/29/24 0507 10/30/24 0541 WBC 3.9 7.8 8.1 HGB 8.0* 9.0* 10.1* HCT 23.0* 26.7* 28.8* MCV 86.4 87.4 87.6 PLT 29* 41* 44* Recent Labs 10/28/24 0413 10/28/24 1109 10/29/24 0507 10/30/24 0541 AST 44* -- 31 33 ALT 101* -- 88* 71* ALKPHOS 26* -- 51 80 BILITOT 2.3* -- 4.2* 3.6* ALBUMIN 3.1* 3.1* < > 3.5 3.5 3.2* 3.2* BILIDIRECT 1.67* -- 2.85* 1.95* PROT 4.5* -- 5.2* 4.8* < > = values in this interval not displayed. Recent Labs 10/27/24 1713 10/28/24 0413 10/28/24 1109 INR 1.1 1.1 1.1 PROTIME 15.2* 14.6 14.3 Recent Labs 10/28/24 11010/29/24 0507 10/30/24 0541 NA 144 144 140 K 3.4* 3.8 3.8 CL 112* 113* 111* CO2 22 17* 17* BUN 57* 57* 62* CREATININE 2.01* 1.93* 1.96* CALCIUM 8.8 9.3 9.0 MG 2.1 2.1 2.2 PHOS 4.0 4.8* 4.6 GLUCOSE 108* 110* 116* Recent Labs 10/27/24 1741 10/28/24 1109 LACTATE 0.5 0.3* Imaging US Duplex [id number] Comp Result Date: 10/28/2024 IMPRESSION: ABDOMINAL ULTRASOUND Heterogeneous echogenicity in the region of the gallbladder fossa suspicious for a hematoma. Perihepatic fluid. ABDOMINAL DOPPLER Patent hepatic vasculature with antegrade flow. Report Verified by: Scotty Wasserman MD at 10/28/2024 4:42 PM EDT US Abdomen Limited Result Date: 10/28/2024 IMPRESSION: ABDOMINAL ULTRASOUND Heterogeneous echogenicity in the region of the gallbladder fossa suspicious for a hematoma. Perihepatic fluid. ABDOMINAL DOPPLER Patent hepatic vasculature with antegrade flow. Report Verified by: Scotty Wasserman MD at 10/28/2024 4:42 PM EDT Assessment: Blair Gilbert is a 39 y.o. 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 Plan: Liver transplant recipient ([facility]) [Z94.4] Neuro: - Multimodal pain control: tylenol, robaxin. PRN oxycodone CV: - HDS - Off pressors - Monitor Qtc (prolonged earlier in admission) with repeat EKG today Pulm: - room air - Continue IS - Home loratadine FEN/GI s/p OLT: Tachycardia improved and hgb responsive to transfusion. Will continue to monitor - Liver enzymes generally improving (though bili 4.2 from 2.5) - POD 0 RUQ ultrasound: small areas of parenchymal heterogeneity in liver; patent hepatic vasculature - Repeat ultrasound POD 5 tomorrow - Diet: Regular - Protonix 40 mg - No BM yet. On senna and miralax. Suppository today - Intermittent nausea. Zofran PRN. If symptoms continue consider ABD CT tomorrow - right drain out. /Renal s/p DDKT: Bicarb low at 17 this am, plan to start bicitra. - Bicitra 30 mL BID - Cr 1.9. baseline ~3.5, making good urine - POD 0 renal ultrasound: patent renal transplant vasculature and waveforms. If creatine continues to stall repeat US tomorrow. Albumin -d/c berkowitz. PVR Heme: -HGB stable - Transfuse to maintain hgb >7 g/dL - Trend TEG per protocol and transfuse as appropriate (significant OR blood loss 10/26) Endo: - Insulin: NPH Q AM, HDSSI with meals - Home Synthroid MSK: - PT/OT-home PT/OT ID: - Transplant ID following - CMV R+: valganciclovir, 3 months - PJP prophylaxis: bactrim SS, 6 months - Antifungal prophylaxis: stefano. Switch to fluc pending QTC. - Perioperative antibiotics complete - Intraoperative cultures: No growth after 2 days, fungal NGTD IS: - Pred taper - Cellcept 500 mg BID - Tacrolimus BID PPX: SQH, SCDs DISPO: floor PRITI GEIGER CNP Transplant Surgery 10:37 AM 10/30/2024 Cosigned by Lydia Sanchez MD at 10/30/2024 11:19 AM EDT Associated attestation - Lydia Sanchez MD - 10/30/2024 11:19 AM EDT This patient was seen and examined by the SAWYER/Resident team on 10/30/2024. I have discussed the patient's care with the team. Immunosuppression reviewed and discussed with multidisciplinary team. I have personally seen and examined this patient on 10/30/2024. AFVSS Pain well controlled Mild nausea, passing gas Liver allograft function excellent Cr normalizing Drains serosang Advance diet as tolerated HSQ IS: tacro, mmf, prednisone Lydia Sanchez MD PhD Transplant Surgery * Caron Santos CNP - 10/30/2024 10:00 AM EDT Images from the original note were not included. Transplant Nephrology Progress Note Patient: Blair Gilbert [id number] Date of Admit: 10/25/2024. LOS: 5 days. Referring physician: Lydia Sanchez MD Chief Complaint: Direct admission for SLK Reason for Consult: Co-management of SLK recipient Interval History: Patient seen and evaluated at bedside. - NAEO - Denies chest pain, SOB, V/D. Reports abdominal pain and nausea - AF, HDS; BP today: 136/70 - Allograft function: Cr 1.96, 24 hour urine output: 2,665 mL Review of Systems: 10 point ROS was negative unless otherwise specified. ALLERGY: Allergies[1] PHYSICAL EXAM: Temp: [97.2 ??F (36.2 ??C)-97.9 ??F (36.6 ??C)] 97.2 ??F (36.2 ??C) Heart Rate: [91-112] 92 Resp: [12-22] 16 BP: (136-156)/(70-103) 136/70 Wt Readings from Last 3 Encounters: 10/30/24 (!) 284 lb 12.8 oz (129.2 kg) 10/10/24 (!) 263 lb 8 oz (119.5 kg) 09/05/24 (!) 262 lb 9.6 oz (119.1 kg) Physical Exam Vitals reviewed. Constitutional: General: He is not in acute distress. Appearance: He is ill-appearing. HENT: Head: Normocephalic and atraumatic. Eyes: Extraocular Movements: Extraocular movements intact. Cardiovascular: Rate and Rhythm: Normal rate and regular rhythm. Pulmonary: Effort: Pulmonary effort is normal. No respiratory distress. Breath sounds: Normal breath sounds. Abdominal: Palpations: Abdomen is soft. Genitourinary: Comments: +Berkowitz with blue-tinged urine Musculoskeletal: Right lower leg: Edema present. Left lower leg: Edema present. Skin: General: Skin is warm and dry. Neurological: Mental Status: He is alert and oriented to person, place, and time. Psychiatric: Mood and Affect: Mood normal. Behavior: Behavior normal. Reviewed/updated 10/30/2024 MEDS: Scheduled Meds: acetaminophen 975 mg Oral Q8H albumin human 5% 250 mL Intravenous Q3HRS bisacodyL 10 mg Rectal Once citric acid-sodium citrate 30 mL Oral BID eye ointment Both Eyes BID fluconazole 200 mg Oral Daily 0900 FLUoxetine 20 mg Oral Daily 0900 heparin 5,000 Units Subcutaneous 3 times per day insulin lispro 0-10 Units Subcutaneous Nightly (2100) insulin lispro 0-12 Units Subcutaneous TID AC insulin NPH 7 Units Subcutaneous QAM levothyroxine 75 mcg Oral DAILY 0600 lidocaine 2 patch Transdermal Daily 0900 loratadine 10 mg Oral Daily 0900 melatonin 6 mg Oral Nightly (2100) methocarbamoL 1,000 mg Oral QID mycophenolate 500 mg Oral BID pantoprazole 40 mg Oral DAILY 0600 polyethylene glycol 17 g Oral BID [START ON 10/31/2024] predniSONE 40 mg Oral Once Followed by [START ON 11/01/2024] predniSONE 30 mg Oral Once Followed by [START ON 11/02/2024] predniSONE 25 mg Oral Once Followed by [START ON 11/03/2024] predniSONE 20 mg Oral Daily 0900 senna-docusate 1 tablet Oral BID sulfamethoxazole-trimethoprim 1 tablet Oral Daily 0900 tacrolimus 3 mg Oral BID valGANciclovir 450 mg Oral Daily 0900 Continuous Infusions: DATA: Reviewed in EMR Radiology last 48 hours: Reviewed in EMR Assessment: Blair Gilbert is a pleasant 39 y.o. 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 Presents as direct admission for SLK on 10/25/24. Medical problems being addressed in this encounter include the following: CKD IIIb/IV: - Presumed s/t HRS - [employer]: Yovanny Curran at [facility] Allograft Function: S/p SLK 10/25- (kidney preemptive) - OLT 10/25-. EBL 19 L. Blood: 11 pRBC, 11 FFP, 2 plts, 1 cryo. Cell Saver 6.1 L. IVF: 9 L crystalloid. Pressors: Levo, Vaso, Epi, and methylene blue. - DDKT, washout, and bile duct reconstruction 10/27/24. cPRA 63 as of 10/15/24. DCD - NRP. KDPI 20. tCr 0.2. Kidney CIT 33:17 and WIT 27 min. Virtual and flow crossmatches negative. KT US 10/27/24: WNL Renal Function: Cr: 1.96 Bun: 62 Pre-op Cr: 3.87 Cr trend: Stable UOP: 2.2 L Electrolytes: Na: 140 K: 3.8 Cl: 111 Ma.2 Ca: 9.0 Phos: 4.6 Hypokalemia, improving with repletion Immunosuppression: Per transplant surgery. Current IS: Pred taper, MMF 500 mg BID, and tacrolimus 3 mg BID FK level: Pending (10.4) FK goal: 10-12 per protocol Infectious disease/ppx: Relevant serologies: CMV D-/R+, EBV D+/R+, Toxo D-/R- CMV ppx: Valcyte PJP ppx: Bactrim Fungal ppx: Fluconazole Estimated Creatinine Clearance: 72.8 mL/min (A) (based on SCr of 1.96 mg/dL (H)). BMD: Ca: 9.0 PO4: 4.6 Alb: 3.2; 3.2 PTH: 36.0 on 10/25/2024 Vit D: 7.1 on 10/08/2024 Acid/base electrolytes: NAGMA - Bicitra 30 mL BID Anion Gap: 12 Bicarb: 17 Lab Results Component Value Date CREATININE 1.96 (H) 10/30/2024 BUN 62 (H) 10/30/2024 NA 140 10/30/2024 K 3.8 10/30/2024 CL 111 (H) 10/30/2024 CO2 17 (L) 10/30/2024 Lab Results Component Value Date PHART 7.37 10/27/2024 PCO2 35 10/27/2024 PO2ART 92 10/27/2024 [id number] 21 (L) 10/27/2024 BEART -4.6 (L) 10/27/2024 [id number] 95.4 10/27/2024 [id number] 98 10/27/2024 Hemodynamics / Cardiovascular Status: Goal <130/80 BP: 136/70 Volume Status: Intake/Output Summary (Last 24 hours) at 10/30/2024 1203 Last data filed at 10/30/2024 1141 Gross per 24 hour Intake 327.16 ml Output 3110 ml Net -2782.84 ml Heme/Anemia of Chronic Disease: WBC 8.1 Goal HgB 10-12 mg/dL Hgb 10.1 Plt 44 Iron 128 on 10/25/2024 Ferritin 623.2 on 10/25/2024 TIBC: SEE COMMENT on 10/25/2024 % Iron Saturation: SEE COMMENT on 10/25/2024 [id number]: No results found for requested labs within last 3600 days. on No results found for requested labs within last 3600 days. Folate: No results found for requested labs within last 3600 days. on No results found for requested labs within last 3600 days. LDH: 102 on 10/08/2024 Haptoglobin: <30 on 10/08/2024 Bilirubin, Direct: No results found for requested labs within last 3600 days. on No results found for requested labs within last 3600 days. Bilirubin, Indirect: No results found for requested labs within last 3600 days. on No results foundfor requested labs within last 3600 days. General Recommendations: - Monitor urine output closely, strict I/O, daily weights. - Avoid nephrotoxins (NSAIDs, NIKKI-I, ARB, Contrast dye) - Monitor renal panel with phosphorus and magnesium levels. - Renally dose all medications. - Avoid supratherapeutic FK levels. Plan: - Cr stabilizing ~1.9 with good UOP. Continue to monitor - IS per transplant surgery - Renally dosed prophylaxis - Hgb improving, WBC stable, and plts remain low. Continue to monitor CBC. Case discussed with consult attending. Agreed on the plan of care Please do not hesitate to give us a call for any questions. All recommendations are preliminary until attending attestation. Lauren Santos, DNP, [employer] OPERATOR, SALVAGER- Transplant Nephrology [phone] Preferred contact: secure chat The HPI, ROS, physical exam, test results, and assessment & plan were reviewed and copied forward (with edits) from a note written by me on 10/29/24. I have reviewed and updated the history, physical exam, data, assessment, and plan of the note so that it reflects my evaluation and management ofthe patient. [1] Allergies Allergen Reactions Adhesive Itching and Rash Tegaderm adhesive on Ivs, pt states its tolerable Duloxetine Other (See Comments) Became Manic Cosigned by Aaron Gonzalez MD at 10/30/2024 4:24 PM EDT Associated attestation - Aaron Gonzalez MD - 10/30/2024 4:24 PM EDT Pt seen, examined, and discussed with [employer] on 10/30/2024. reviewed the chart including the labs and imaging studies. My additional comments below. 39 y.o. 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 S/p SLK 10/25-10/26 Good uop Mild MA, will monitor for now for needs of po bicarb Aaron Gonzalez MD, MEd, FASN * Ben S Abhishek, RD - 10/29/2024 3:36 PM EDT TXP - Follow Up [facility] Medical Nutrition Therapy Follow-Up Diet Order/Nutrition Support: Diet/Nutrition Orders Diet Regular(7) Frequency: Effective Now Number of Occurrences: Until Specified Order Questions: Suicide/Behavior Risk Modification? No Dietary nutrition supplements Frequency: TID Number of Occurrences: Until Specified Order Questions: Select Supplement: Boost Max - High Protein Pertinent Information: Pt seen for follow-up. Multiple family members present. Endorses fair appetite. Diet advanced this am. ONS ordered. Denies n/v/d. Reviewed post-txp nutrition guidelines with pt. Discussed nutrition related lab values s/p SLK transplant and increased intake of appropriate foods. Emphasized the importance of food safety including cooking meats and reheating foods to proper temperatures, avoiding cross-contamination when preparing foods, washing fruits and vegetables, and avoiding unpasteurized food products. Encouraged pt to avoid buffets, potlucks, etc. where the preparation and exposure of food is unknown. Also discussed food/drug interaction associated with grapefruit, as well as maintaining adequate hydration. Pt verbalizes basic understanding of diet guidelines. Contact info and Food Safety Nutrition Therapy/High Magnesium Foods handouts provided. Glucose: 97-130 x 24 hours. I/O: +23.3L net volume. 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 Admit Weight: 270 lb (122.5 kg) Current Weight: (!) 270 lb (122.5 kg) Pertinent Labs: Recent Labs 10/28/24 1449 10/28/24 2004 10/29/24 0507 WBC 4.0 3.9 7.8 HGB 7.5* 8.0* 9.0* HCT 21.4* 23.0* 26.7* PLT 30* 29* 41* Recent Labs 10/28/24 0413 10/28/24 1109 10/29/24 0507 NA 142 144 144 K 3.5 3.4* 3.8 CL 111* 112* 113* CO2 22 22 17* BUN 58* 57* 57* CREATININE 2.24* 2.01* 1.93* GLUCOSE 103* 108* 110* CALCIUM 9.1 8.8 9.3 MG 2.2 2.1 2.1 PHOS 4.8* 4.0 4.8* Recent Labs 10/27/24 1713 10/28/24 0005 10/28/24 0413 10/28/24 1109 10/29/24 0507 AST 62* 60* -- 44* -- 31 ALT 134* 134* -- 101* -- 88* BILITOT 1.7* 1.7* -- 2.3* -- 4.2* BILIDIRECT 1.10* 1.17* -- 1.67* -- 2.85* ALKPHOS 27* 27* -- 26* -- 51 ALBUMIN 2.9* 2.9* 2.9* < > 3.1* 3.1* 3.3* 3.5 3.5 < > = values in this interval not displayed. Scheduled Meds: acetaminophen 975 mg Oral Q8H citric acid-sodium citrate 30 mL Oral BID eye ointment Both Eyes BID FLUoxetine 20 mg Oral Daily 0900 heparin 5,000 Units Subcutaneous 3 times per day insulin lispro 0-10 Units Subcutaneous Nightly (2100) insulin lispro 0-12 Units Subcutaneous TID AC insulin NPH 10 Units Subcutaneous BID levothyroxine 75 mcg Oral DAILY 0600 loratadine 10 mg Oral Daily 0900 melatonin 6 mg Oral Nightly (2100) methocarbamoL 1,000 mg Oral QID [START ON 10/30/2024] methylPREDNISolone sod suc(PF) 50 mg Intravenous Once Followed by [START ON 10/31/2024] predniSONE 40 mg Oral Once Followed by [START ON 11/01/2024] predniSONE 30 mg Oral Once Followed by [START ON 11/02/2024] predniSONE 25 mg Oral Once Followed by [START ON 11/03/2024] predniSONE 20 mg Oral Daily 0900 micafungin 50 mg Intravenous Q24H mycophenolate 500 mg Oral BID pantoprazole 40 mg Oral DAILY 0600 polyethylene glycol 17 g Oral BID senna-docusate 1 tablet Oral BID sulfamethoxazole-trimethoprim 1 tablet Oral Daily 0900 [START ON 10/30/2024] tacrolimus 3 mg Oral BID valGANciclovir 450 mg Oral Daily 0900 Continuous Infusions: PRN Meds:bisacodyL, dextrose 10% in water OR dextrose 10% in water, oxyCODONE OR oxyCODONE Vital Signs: Temp: [97.5 ??F (36.4 ??C)-98.4 ??F (36.9 ??C)] 97.8 ??F (36.6 ??C) Heart Rate: [94-107] 98 Resp: [12-19] 14 BP: (130-155)/(76-105) 147/97 Arterial Line BP: (113-156)/(56-81) 156/74 Skin Integrity: Abdominal incision Yusuf Scale Score: 17 Edema: Generalized Edema: Moderate pitting, indentation subsides rapidly RUE Edema: Moderate pitting, indentation subsides rapidly LUE Edema: Moderate pitting, indentation subsides rapidly RLE Edema: Deep pitting, indentation remains for a short time LLE Edema: Deep pitting, indentation remains for a short time GI: Abdomen Inspection: Soft, Rounded Bowel Sounds (All Quadrants): Hypoactive Palpation/Percussion: Soft Passing Flatus: No Ventilator Settings: Anthropometrics: Ht Readings from Last 1 Encounters: 10/26/24 6' 4 (1.93 m) Wt Readings from Last 1 Encounters: 10/25/24 (!) 270 lb (122.5 kg) Body mass index is 32.87 kg/m??. Estimated Nutrition Needs: Based on DBW of 93.1 kg Kcals/day: 0830-0344 (25-30 kcals/kg) Protein g/day: 140-190 (1.5-2.0 g/kg) - DBW Carbohydrates g/day: 45-55% of total calories Fluid ml/day: 1 ml/kcal or per MD *Needs based on clinical status at this time and subject to change. Nutrition Diagnosis Problem: Increased kcal/protein needs Related To: Increased demand for nutrients As Evidenced By: Recent liver transplant, medically complex Nutrition Diagnosis Problem: Food- and nutrition-related knowledge deficit Related to: Exposure to new information As evidenced by: Recent liver transplant and subsequent need for medical nutrition therapy education Established Nutrition Intervention: Monitor PO Intake/Tolerance and Education/Counseling: Food Safety Established Goals: Total energy intake improved as evidenced by PO intake at least 75% of meals/supplements/snacks within 1-3 days and Voices/demonstrates knowledge of Food Safety education/counseling Goals: Met Coordination of Nutrition Care: Currently there are no further barriers to discharge from a nutrition perspective and will further assess patient on an as needed basis as identified by the transplantmultidisciplinary team This information has been communicated to the transplant multidisciplinary team Follow up: per policy while inpatient. If patient is discharged, dietitian will be available for consultation on an as needed basis as identified by the multidisciplinary team. Additional Recommendation(s) to Physicians: No New Recommendations Kingston Weiss RD, LD Clinical Dietitian - Solid Organ Transplant Contact via [employer] Chat * Anita Crystal, PT - 10/29/2024 2:04 PM EDT Physical Therapy Initial Assessment Name: Blair Gilbert : 1985 Attending Physician: Harvey Domínguez III, MD Admission Diagnosis: Liver transplant recipient (CMS-HCC) [Z94.4] Date: 10/29/2024 Room: [place] [address]/[place] [address] Reviewed Pertinent hospital course: Yes Hospital Course PT/OT: 39 y/o male presents for SLK. 10/25 OR: OLT, TAC. 10/27 return to OR: DDKT, bile duct anastomosis, abdominal closure. Extubated post-op. 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 Precautions: none Activity Level: Activity as tolerated Assist: Co-evaluation performed Assessment Assessment: Impaired Bed Mobility, Impaired Transfers, Impaired Gait, Impaired Balance, Impaired Stair Negotiation, Impaired Activity Tolerance Prognosis: Good Pt is cooperative with PT this date. Requires Arthur-CGA for bed mobility, sit to stand, and a few steps to chair with RW. Pt rates his exertion at 7-8/10 on mRPE scale after completing transfer to chair, with notable increase in work of breathing. VSS throughout on room air. Anticipate pt will progress well with improved pain management, as he was independent prior to admission. Pt demonstrates impaired balance, endurance, and activity tolerance and will continue to benefit from skilled physicaltherapy to address functional mobility impairments. Recommendation Recommendation: Home PT (pending further mobility assessment) Equipment Recommended: Rolling walker Justification for DME ordered: Walker Walker: Patient has decreased weight bearing or impaired balance putting them at risk for falling without use of a walker. They are unable to utilize crutches or a cane to provide adequate support AM-PAC 6 Clicks Basic Mobility Inpatient Short Form: PT 6 Clicks Score: 15 Mobility Recommendations for Staff Patient ability: Patient transfers to chair/ bedside commode Assist needed: with 1 person assist (+1 for line management) Home Living/Prior Function Patient able to provide accurate information at this time: Yes Lives With: Spouse Assistance available: 24 hour assistance Type of Home: House Home Entry: No steps to enter Home Layout: One level Bathroom Shower/Tub: Tub/shower unit;Walk-in shower Bathroom Equipment: Shower chair Bathroom Accessibility: Accessible via walker Home Equipment: Crutches (adjustable bed) Prior Function Functional Mobility: Independent ( no assistive device) ADL Assistance: Independent IADL Assistance: Independent 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, 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) Leisure Activities: exercise, playing with his chun retriever Pain Pain Score: 7 Pain Location: Abdomen (R side) Pain Descriptors: Aching;Throbbing Pain Intervention(s): Ambulation/increased activity;Repositioned Therapist reported pain [...] ADL's safely Communication: Verbalization Neuromuscular Overall Sensation: Impaired Impairments: Light touch Additional Comments: diminished light touch in B toes for a few months Upper Extremity UE Assessment: Defer to OT evaluation for formal assessment Lower Extremity Lower Extremity LE Assessment: Strength WFL (at least 3+/5) as observed during functional activity;ROM grossly WFL;Impaired Impairments: Edema Edema: Pitting;4+ Severe (6-8mm, 30+seconds to rebound) Functional Mobility Bed Mobility Supine to Sit: Minimal assistance;head of bed elevated;towards the right;increased time to completetask;cues for log rolling Transfers Sit to Stand: Minimal assistance;from elevated surface;up to assistive device;cues for hand placement Sit to Stand Assistive Device: Rolling walker Stand to Sit: Minimal assistance;with assistive device;cues for hand placement (decreased eccentriccontrol) Stand to Sit Assistive Device: Rolling walker Bed to Chair: Contact guard assistance;stand step;with assistive device;towards the right Bed to Chair Assistive Device: Rolling walker Unable to progress further due to: fatigue, increased work of breathing with transfer to chair Balance Sitting - Static: Supervision Sitting-Dynamic: Stand by assistance Standing-Static: Contact Guard Assistance;With Assistive Device Standing-Static Assistive Device: Rolling walker Standing-Dynamic: Contact Guard Assistance;With Assistive Device Standing-Dynamic Assistive Device: Rolling walker Gait belt used: Yes Outcome Measures Position after Therapy/Safety Handoff Position after treatment and safety handoff Position after therapy session: Chair Details: RN notified;Call light/ needs within reach;visitor present Alarms: Chair Alarms Status: Activated and unable to be interfaced with call system Goals Collaborated with: Patient, Family Patient Stated Goal: to return to baseline/PLOF, to go home Goals to be met by: 11/05/24 Patient will transition from supine to sit: Modified Independent, head of bed elevated Patient will transition from sit to supine: Modified Independent, head of bed elevated Patient will transfer from sit to stand: Stand-By assistance, up to assistive device Patient will ambulate: Will tolerate assessment Patient will participate in bilateral lower extremeity HEP in preperation for further functional mobility: 10 repetitions Pt Will report pain with functional mobility at: 4/10 or less Halfway Goal : Pt will ambulate 250' mod I with LRAD Patient/Family Education Educated patient and patient's family on the role of physical therapy, goals, plan of care, importance of increased activity, discharge recommendations, and transfer training and fall prevention strategies, including need for supervision/ assistance with OOB activity and use of call light; patient and patient's family verbalized understanding. Handout(s) issued: none. Pt encouraged to sit up in chair 3x/day with assist from nursing staff, verbalizes understanding. Plan Plan Treatment/Interventions: Endurance training, Patient/family training, Equipment eval/education, Gait training, Therapeutic Activity, Therapeutic Exercise, Compensatory technique education PT Frequency: minimum 3x/week The plan of care and recommendations assesses the patient's and/or caregiver's readiness, willingness, and ability to provide or support functional mobility and ADL tasks as needed upon discharge. Time Start Time: 08 Stop Time: 926 Time Calculation (min): 38 min Charges $PT Evaluation Mod Complex 30 Min: 1 Procedure $Therapeutic Activity: 1 unit Problem List Problem List[1] Past Medical History Past Medical History: Diagnosis Date Alcoholic cirrhosis of liver (CMS-HCC) Esophageal varices (CMS-HCC) Hepatorenal syndrome ([facility]-HCC) Hypertension Other hyperlipidemia 07/26/2024 Renal cell carcinoma (CMS-HCC) Thrombocytopenia (CMS-HCC) Thyroid disease Past Surgical History Past Surgical History: Procedure Laterality Date ESOPHAGOGASTRODUODENOSCOPY N/A 10/10/2024 Procedure: EGD; Surgeon: Lino Soto MD; Location: ENDOSCOPY; Service: Gastroenterology; Laterality: N/A; LEFT HEART CATH N/A 10/14/2024 Procedure: Left Heart Cath; Surgeon: Irving Matta MD; Location: CARDIAC CATH LABS; Service:Cath; Laterality: N/A; LIVER-KIDNEY TRANSPLANT N/A 10/25/2024 Procedure: LIVER TRANSPLANT; Surgeon: Harvey Domínguez III, MD; Location: OR; Service: Transplant; Laterality: N/A; NEPHRECTOMY TRANSPLANTED ORGAN N/A 10/27/2024 Procedure: Donor Kidney Transplant , Back Bench Preparation Donor Kidney, Baseline Kidney transplant biopsy , Insertion of Indwelling Stent , Removal of Perihepatic packing; Surgeon: Harvey Domínguez III, MD; Location: OR; Service: Transplant; Laterality: N/A; [1] Patient Active Problem List Diagnosis Decompensated [place]) Acute kidney injury superimposed on CKD ([facility]) Alcohol use disorder Metabolic encephalopathy Hypertension Other hyperlipidemia Thrombocytopenia ([facility]) Renal mass, left Abdominal pain Hypokalemia CKD (chronic kidney disease) stage 4, GFR 15-29 ml/min ([facility]) Metabolic acidosis with normal anion gap and bicarbonate losses GERD (gastroesophageal reflux disease) Hypothyroidism Itching Anemia BRBPR (bright red blood per rectum) SBP (spontaneous bacterial peritonitis) ([facility]) C Diff Diarrhea C. difficile diarrhea Neck pain with history of cervical spinal surgery * Shanel Pabon, OT - 10/29/2024 1:23 PM EDT Occupational Therapy Initial Assessment Name: Blair Gilbert : 1985 Attending Physician: Harvey Domínguez III, MD Admission Diagnosis: Liver transplant recipient ([facility]) [Z94.4] Date: 10/29/2024 Room: [place] [address]/[place] [address] Reviewed Pertinent hospital course: Yes Hospital Course PT/OT: 39 y/o male presents for SLK. 10/25 OR: OLT, TAC. 10/27 return to OR: DDKT, bile duct anastomosis, abdominal closure. Extubated post-op. 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 Precautions: none Activity Level: Activity as tolerated Assist: Co-evaluation performed Recommendation Recommendation: Home OT (pending further mobility and ADL task) Equipment Recommendations: Patient already has needed DME Patient already has needed DME: shower chair Assessment Assessment: Decreased ADL status, Decreased IADLs, Decreased Functional Mobility, Decreased activity tolerance, Decreased Balance, Decreased self-care transfers Prognosis for OT goals: Good Pt agreeable to OT eval. Pt demonstrates decreased functional mobility and ADL participation from reported functional baseline. Pt required increased assistance to complete all functional mobility and self-care ADLs. Pt is limited by decreased balance, decreased strength, decreased activity tolerance, global deconditioning, and increased pain. Pt would benefit from continued OT services to increase safety and independence in ADLs/IADLS and functional mobility. Outcome Measures AM-PAC 6 Clicks Daily Activity Inpatient Short Form: OT 6 Clicks Score: 18 Functional Status Score ICU (FSS-ICU): Functional Status Score - ICU: 16 Home Living/Prior Function Patient able to provide accurate information at this time: Yes Lives With: Spouse Assistance available: 24 hour assistance Type of Home: House Home Entry: No steps to enter Home Layout: One level Bathroom Shower/Tub: Tub/shower unit, Walk-in shower Bathroom Equipment: Shower chair Bathroom Accessibility: Accessible via walker Home Equipment: Crutches (adjustable bed) Prior Function Functional Mobility: Independent ( no assistive device) ADL Assistance: Independent IADL Assistance: Independent 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, 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) Leisure: Hobbies-yes (Comment) Leisure Activities: exercise, playing with his chun retriever Currently recieving therapy services: No Pain Pain Score: 7 Pain Location: Abdomen (R side) Pain Descriptors: Aching;Throbbing Pain Intervention(s): Ambulation/increased activity;Repositioned Therapist reported 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 to: air crew member Oxygen Supplemental Oxygen Supplemental Oxygen: None (Room air) Vitals Vitals Therapy Vitals : VSS throughout Cognition Overall Cognitive Status: Within Functional Limits Cognitive Assessment: Arousal/ Alertness;Orientation Level;Behavior;Following Commands;Safety Judgment;Insight;Communication Arousal/Alertness: Alert Orientation Level: Oriented X4 Behavior: Appropriate;Cooperative Following Commands: Follows all commands and directions without difficulty Safety Judgment: Good awareness of safety precautions Insight: Demonstrated intact insight into limitation and abilities to complete ADL's safely Communication: Verbalization Barth Agitation Sedation Scale: Alert and calm Vision Hearing: No hearing deficits noted Baseline [...] observed during functional activites Neuromuscular Overall Sensation: Impaired Impairments: Light touch Additional Comments: diminished light touch in B toes for a few months Functional Mobility Bed Mobility Supine to Sit: Minimal assistance Transfers Sit to Stand: Minimal assistance;from elevated surface;up to assistive device Sit to Stand Assistive Device: Rolling walker Stand to Sit: Minimal assistance;with assistive device Stand to Sit Assistive Device: Rolling walker Chair to Bed: Contact guard assistance;stand step;increased time to complete task;with assistive device;towards the right Chair to Bed Assistive Device: Rolling walker Balance Sitting - Static: Stand by Assistance Sitting-Dynamic: Stand by assistance Standing-Static: Contact Guard Assistance;With Assistive Device Standing-Static Assistive Device: Rolling walker Standing-Dynamic: Contact Guard Assistance;With Assistive Device Standing-Dynamic Assistive Device: Rolling walker Gait belt used: Yes ADL Lower Body Dressing: Maximum assistnace Lower Body Dressing Deficit: Don/doff R sock;Don/doff L sock Location Assessed LE Dressing: Seated edge of bed Treatment provided during OT evaluation: Activities of Daily Living;Patient Education Treatment provided during/after evaluation Total treatment time (minutes): 15 Position after Treatment/Safety Handoff Position after therapy session: Chair Details: RN notified;visitor present;Call light/ needs within reach Alarms: Chair Alarms Status: Activated and unable to be interfaced with call system Plan Plan Treatment Interventions: ADL retraining, IADL retraining, Functional transfer training, UE strengthening/ROM, Lower Extremity Intervention, Activity Tolerance training, Equipment eval/education, Energy Conservation, Patient/Family training, Therapeutic Activity, Excercise, Compensatory technique education OT Frequency: minimum 3x/week The plan of care and recommendations assesses the patient's and/or caregiver's readiness, willingness, and ability to provide or support functional mobility and ADL tasks as needed upon discharge. Goals Goals to be met in: 1 week Patient stated goal: to go home, to increase independence Patient will complete supine to sit in prep for ADLs: Stand-by assistance Patient will complete functional chair transfer: Stand-by assistance Patient will complete toileting: Will tolerate assessment Patient will complete lower body dressing: Moderate assistance Miscellaneous Goal #1: Pt will tolerate household distance ambulation in prep for IADL task Reference Test Clerk Goal : Pt will complete bathing assessment and transfer assisted goal to be met in: 2 weeks Collaborated with: Patient Patient/Family Education Educated patient on the role of occupational therapy, OT goals, OT plan of care, discharge recommendation, ADL training, functional mobility training, and the importance of safety and fall preventionstrategies including need for supervision/ assistance with OOB activity and use of call light. patient verbalized understanding. OT Time Start Time: 848 Stop Time: 927 Time Calculation (min): 39 min OT Charges $OT Evaluation Mod Complex 45 Min: 1 Procedure $Therapeutic Activity: 8-22 mins Problem List Problem List[1] Past Medical History Past Medical History: Diagnosis Date Alcoholic cirrhosis of liver (CMS-HCC) Esophageal varices (CMS-HCC) Hepatorenal syndrome (CMS-HCC) Hypertension Other hyperlipidemia 07/26/2024 Renal cell carcinoma (CMS-HCC) Thrombocytopenia (CMS-HCC) Thyroid disease Past Surgical History Past Surgical History: Procedure Laterality Date ESOPHAGOGASTRODUODENOSCOPY N/A 10/10/2024 Procedure: EGD; Surgeon: Lino Soto MD; Location: ENDOSCOPY; Service: Gastroenterology; Laterality: N/A; LEFT HEART CATH N/A 10/14/2024 Procedure: Left Heart Cath; Surgeon: Irving Matta MD; Location: CARDIAC CATH LABS; Service:Cath; Laterality: N/A; LIVER-KIDNEY TRANSPLANT N/A 10/25/2024 Procedure: LIVER TRANSPLANT; Surgeon: Harvey Domínguez III, MD; Location: OR; Service: Transplant; Laterality: N/A; NEPHRECTOMY TRANSPLANTED ORGAN N/A 10/27/2024 Procedure: Donor Kidney Transplant , Back Bench Preparation Donor Kidney, Baseline Kidney transplant biopsy , Insertion of Indwelling Stent , Removal of Perihepatic packing; Surgeon: Harvey Domínguez III, MD; Location: OR; Service: Transplant; Laterality: N/A; [1] Patient Active Problem List Diagnosis Decompensated cirrhosis (CMS-HCC) Acute kidney injury superimposed on CKD (CMS-HCC) Alcohol use disorder Metabolic encephalopathy Hypertension Other hyperlipidemia Thrombocytopenia (CMS-HCC) Renal mass, left Abdominal pain Hypokalemia CKD (chronic kidney disease) stage 4, GFR 15-29 ml/min ([facility]) Metabolic acidosis with normal anion gap and bicarbonate losses GERD (gastroesophageal reflux disease) Hypothyroidism Itching Anemia BRBPR (bright red blood per rectum) SBP (spontaneous bacterial peritonitis) ([facility]) C Diff Diarrhea C. difficile diarrhea Neck pain with history of cervical spinal surgery * Caron Santos CNP - 10/29/2024 10:30 AM EDT Images from the original note were not included. Transplant Nephrology Progress Note Patient: Blair Gilbert [id number] [id number]/[id number] Date of Admit: 10/25/2024. LOS: 4 days. Referring physician: Harvey Domínguez III, MD Chief Complaint: Direct admission for SLK Reason for Consult: Co-management of SLK recipient Interval History: Patient seen and evaluated at bedside in SICU - NAEO - Denies chest pain, SOB, N/V/D - AF, HDS; BP today: (!) 147/97 - Allograft function: Cr 1.93, 24 hour urine output: 3,905 mL, drain output 720 mL - Intake: 5.3 L. Output 5 L. Net +300 mL. Review of Systems: 10 point ROS was negative unless otherwise specified. ALLERGY: Allergies[1] PHYSICAL EXAM: Temp: [97.5 ??F (36.4 ??C)-98.4 ??F (36.9 ??C)] 97.5 ??F (36.4 ??C) Heart Rate: [94-111] 98 Resp: [12-20] 14 BP: (127-155)/(75-105) 147/97 Arterial Line BP: (98-156)/(50-81) 156/74 Wt Readings from Last 3 Encounters: 10/25/24 (!) 270 lb (122.5 kg) 10/10/24 (!) 263 lb 8 oz (119.5 kg) 09/05/24 (!) 262 lb 9.6 oz (119.1 kg) Physical Exam Vitals reviewed. Constitutional: General: He is not in acute distress. Appearance: He is ill-appearing. HENT: Head: Normocephalic and atraumatic. Eyes: Extraocular Movements: Extraocular movements intact. Cardiovascular: Rate and Rhythm: Normal rate and regular rhythm. Pulmonary: Effort: Pulmonary effort is normal. No respiratory distress. Breath sounds: Normal breath sounds. Abdominal: Palpations: Abdomen is soft. Genitourinary: Comments: +Berkowitz with blue-tinged urine Musculoskeletal: Right lower leg: Edema present. Left lower leg: Edema present. Skin: General: Skin is warm and dry. Neurological: Mental Status: He is alert and oriented to person, place, and time. Psychiatric: Mood and Affect: Mood normal. Behavior: Behavior normal. Reviewed/updated 10/29/2024 MEDS: Scheduled Meds: acetaminophen 975 mg Oral Q8H citric acid-sodium citrate 30 mL Oral BID eye ointment Both Eyes BID FLUoxetine 20 mg Oral Daily 0900 heparin 5,000 Units Subcutaneous 3 times per day insulin lispro 0-10 Units Subcutaneous Nightly (2100) insulin lispro 0-12 Units Subcutaneous TID AC insulin NPH 10 Units Subcutaneous BID levothyroxine 75 mcg Oral DAILY 0600 loratadine 10 mg Oral Daily 0900 melatonin 6 mg Oral Nightly (2100) methocarbamoL 1,000 mg Oral QID [START ON 10/30/2024] methylPREDNISolone sod suc(PF) 50 mg Intravenous Once Followed by [START ON 10/31/2024] predniSONE 40 mg Oral Once Followed by [START ON 11/01/2024] predniSONE 30 mg Oral Once Followed by [START ON 11/02/2024] predniSONE 25 mg Oral Once Followed by [START ON 11/03/2024] predniSONE 20 mg Oral Daily 0900 micafungin 50 mg Intravenous Q24H mycophenolate 500 mg Oral BID pantoprazole 40 mg Oral DAILY 0600 potassium chloride (KCl) 20 mEq Intravenous Q1H PILAR sulfamethoxazole-trimethoprim 1 tablet Oral Daily 0900 tacrolimus 5 mg Oral BID valGANciclovir 450 mg Oral Daily 0900 Continuous Infusions: DATA: Reviewed in EMR Radiology last 48 hours: Reviewed in EMR Assessment: Blair Gilbert is a pleasant 39 y.o. 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 Presents as direct admission for SLK on 10/25/24. Medical problems being addressed in this encounter include the following: CKD IIIb/IV: - Presumed s/t HRS - [employer]: Yovanny Curran at [facility] Allograft Function: S/p SLK 10/25- (kidney preemptive) - OLT 10/25-. EBL 19 L. Blood: 11 pRBC, 11 FFP, 2 plts, 1 cryo. Cell Saver 6.1 L. IVF: 9 L crystalloid. Pressors: Levo, Vaso, Epi, and methylene blue. - DDKT, washout, and bile duct reconstruction 10/27/24. cPRA 63 as of 10/15/24. DCD - NRP. KDPI 20. tCr 0.2. Kidney CIT 33:17 and WIT 27 min. Virtual and flow crossmatches negative. KT US 10/27/24: WNL Renal Function: Cr: 1.93 Bun: 57 Pre-op Cr: 3.87 Cr trend: Down UOP: 4.2 L Electrolytes: Na: 144 K: 3.8 Cl: 113 Ma.1 Ca: 9.3 Phos: 4.8 Hypokalemia, improving with repletion Immunosuppression: Per transplant surgery. Current IS: Pred taper, MMF 500 mg BID, and tacrolimus 5 mg BID FK level: Pending (<1) FK goal: 10-12 per protocol Infectious disease/ppx: Relevant serologies: CMV D-/R+, EBV D+/R+, Toxo D-/R- CMV ppx: Valcyte PJP ppx: Bactrim Fungal ppx: Micafungin Estimated Creatinine Clearance: 72 mL/min (A) (based on SCr of 1.93 mg/dL (H)). BMD: Ca: 9.3 PO4: 4.8 Alb: 3.5; 3.5 PTH: 36.0 on 10/25/2024 Vit D: 7.1 on 10/08/2024 Acid/base electrolytes: NAGMA - Bicitra 30 mL BID Anion Gap: 14 Bicarb: 17 Lab Results Component Value Date CREATININE 1.93 (H) 10/29/2024 BUN 57 (H) 10/29/2024 NA 144 10/29/2024 K 3.8 10/29/2024 CL 113 (H) 10/29/2024 CO2 17 (L) 10/29/2024 Lab Results Component Value Date PHART 7.37 10/27/2024 PCO2 35 10/27/2024 PO2ART 92 10/27/2024 [id number] 21 (L) 10/27/2024 BEART -4.6 (L) 10/27/2024 [id number] 95.4 10/27/2024 [id number] 98 10/27/2024 Hemodynamics / Cardiovascular Status: Goal <130/80 BP: (!) 147/97 Volume Status: Intake/Output Summary (Last 24 hours) at 10/29/2024 1158 Last data filed at 10/29/2024 1000 Gross per 24 hour Intake 3075.61 ml Output 4700 ml Net -1624.39 ml Heme/Anemia of Chronic Disease: WBC 7.8 Goal HgB 10-12 mg/dL Hgb 9.0 Plt 41 Iron 128 on 10/25/2024 Ferritin 623.2 on 10/25/2024 TIBC: SEE COMMENT on 10/25/2024 % Iron Saturation: SEE COMMENT on 10/25/2024 [id number]: No results found for requested labs within last 3600 days. on No results found for requested labs within last 3600 days. Folate: No results found for requested labs within last 3600 days. on No results found for requested labs within last 3600 days. LDH: 102 on 10/08/2024 Haptoglobin: <30 on 10/08/2024 Bilirubin, Direct: No results found for requested labs within last 3600 days. on No results found for requested labs within last 3600 days. Bilirubin, Indirect: No results found for requested labs within last 3600 days. on No results foundfor requested labs within last 3600 days. General Recommendations: - Monitor urine output closely, strict I/O, daily weights. - Avoid nephrotoxins (NSAIDs, NIKKI-I, ARB, Contrast dye) - Monitor renal panel with phosphorus and magnesium levels. - Renally dose all medications. - Avoid supratherapeutic FK levels. Plan: - Cr continues to slowly downtrend with good UOP, continue to monitor - IS per transplant surgery - Renally dosed prophylaxis - Hgb improved, WBC stable, and plts a little better. Continue to monitor CBC Case discussed with consult attending. Agreed on the plan of care Please do not hesitate to give us a call for any questions. All recommendations are preliminary until attending attestation. Lauren Santos, DNP, [employer] OPERATOR, [facility]ER- Transplant Nephrology [phone] Preferred contact: secure chat The HPI, ROS, physical exam, test results, and assessment & plan were reviewed and copied forward (with edits) from a note written by me on 10/28/24. I have reviewed and updated the history, physical exam, data, assessment, and plan of the note so that it reflects my evaluation and management ofthe patient. [1] Allergies Allergen Reactions Adhesive Itching and Rash Tegaderm adhesive on Ivs, pt states its tolerable Duloxetine Other (See Comments) Became Manic Cosigned by Aaron Gonzalez MD at 10/29/2024 1:15 PM EDT Associated attestation - Aaron Gonzalez MD - 10/29/2024 1:15 PM EDT Pt seen, examined, and discussed with [employer] on 10/29/2024. reviewed the chart including the labs and imaging studies. My additional comments below. 39 y.o. 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 S/p SLK 10/25-10/26 Has great UOP 4.2L; 720 drain output Aaron Gonzalez MD, MEd, FASN * Kenyetta Hartman - 10/29/2024 10:07 AM EDT Liver Transplant Surgery Progress Note Name: Blair Gilbert CSN: [id number] Date: 10/29/2024 10:08 AM OR Date: 10/25/2024 - 10/27/2024 Subjective: 2 Days Post-Op Remains off pressors this am Passing flatus, no BM yet No nausea/vomiting Received 2 units of blood overnight Objective: BP (!) 141/98 (BP Location: Left upper arm, Patient Position: Lying, BP Cuff Size: Regular) Pulse95 Temp 97.5 ??F (36.4 ??C) (Oral) Resp 13 Ht 6' 4 (1.93 m) Wt (!) 270 lb (122.5 kg) SpO2 95% BMI 32.87 kg/m?? Physical Exam: Constitutional: No acute distress, cooperative, lying in bed comfortably. HEENT: Moist mucous membranes. Respiratory: Normal work of breathing on room air, equal chest rise bilaterally Cardiovascular: Regular rate and rhythm. Abdomen: Wound with dressing intact, R nia drain with serosanguinous fluid, L nia with thinning bloody fluid. Abdomen is moderately-distended, with mild surgical site tenderness. No rebound or guarding. /Anorectal: Berkowitz in place Extremities: No gross deformities, acyanotic Neuro: Attends well to exam, cooperative, no focal deficits Medications Scheduled Meds: acetaminophen 975 mg Oral Q8H citric acid-sodium citrate 30 mL Oral BID eye ointment Both Eyes BID FLUoxetine 20 mg Oral Daily 0900 heparin 5,000 Units Subcutaneous 3 times per day insulin lispro 0-10 Units Subcutaneous Nightly (2100) insulin lispro 0-12 Units Subcutaneous TID AC insulin NPH 10 Units Subcutaneous BID levothyroxine 75 mcg Oral DAILY 0600 loratadine 10 mg Oral Daily 0900 melatonin 6 mg Oral Nightly (2100) methocarbamoL 1,000 mg Oral QID [START ON 10/30/2024] methylPREDNISolone sod suc(PF) 50 mg Intravenous Once Followed by [START ON 10/31/2024] predniSONE 40 mg Oral Once Followed by [START ON 11/01/2024] predniSONE 30 mg Oral Once Followed by [START ON 11/02/2024] predniSONE 25 mg Oral Once Followed by [START ON 11/03/2024] predniSONE 20 mg Oral Daily 0900 micafungin 50 mg Intravenous Q24H mycophenolate (CELLCEPT) IVPB 500 mg Intravenous BID mycophenolate 500 mg Oral BID pantoprazole 40 mg Oral DAILY 0600 potassium chloride (KCl) 20 mEq Intravenous Q1H PILAR sulfamethoxazole-trimethoprim 1 tablet Oral Daily 0900 tacrolimus 5 mg Oral BID valGANciclovir 450 mg Oral Daily 0900 Continuous: electrolyte 75 mL/hr (10/29/24 0947) PRN Meds: bisacodyL, 10 mg, Daily PRN dextrose 10% in water, 12.5 g, Q15 Min PRN Or dextrose 10% in water, 25 g, Q15 Min PRN HYDROmorphone, 0.5 mg, Q4H PRN Or HYDROmorphone, 1 mg, Q4H PRN oxyCODONE, 5 mg, Q4H PRN Or oxyCODONE, 10 mg, Q4H PRN Recent Labs 10/28/24 1449 10/28/24 2004 10/29/24 0507 WBC 4.0 3.9 7.8 HGB 7.5* 8.0* 9.0* HCT 21.4* 23.0* 26.7* MCV 87.6 86.4 87.4 PLT 30* 29* 41* Recent Labs 10/27/24 1713 10/28/24 0005 10/28/2441210/28/24 11010/29/24 0507 AST 62* 60* -- 44* -- 31 ALT 134* 134* -- 101* -- 88* ALKPHOS 27* 27* -- 26* -- 51 BILITOT 1.7* 1.7* -- 2.3* -- 4.2* ALBUMIN 2.9* 2.9* 2.9* < > 3.1* 3.1* 3.3* 3.5 3.5 BILIDIRECT 1.10* 1.17* -- 1.67* -- 2.85* PROT 4.1* 4.1* -- 4.5* -- 5.2* < > = values in this interval not displayed. Recent Labs 10/27/24 1713 10/28/243 10/28/24 110 INR 1.1 1.1 1.1 PROTIME 15.2* 14.6 14.3 Recent Labs 10/28/24 0413 10/28/24 1109 10/29/24 0507 NA 142 144 144 K 3.5 3.4* 3.8 CL 111* 112* 113* CO2 22 22 17* BUN 58* 57* 57* CREATININE 2.24* 2.01* 1.93* CALCIUM 9.1 8.8 9.3 MG 2.2 2.1 2.1 PHOS 4.8* 4.0 4.8* GLUCOSE 103* 108* 110* Recent Labs 10/27/24 0800 10/27/24 1741 10/28/24 1109 LACTATE 0.4* 0.5 0.3* Imaging US Duplex Iwi-Jwf-Dtipkzf Comp Result Date: 10/28/2024 IMPRESSION: ABDOMINAL ULTRASOUND Heterogeneous echogenicity in the region of the gallbladder fossa suspicious for a hematoma. Perihepatic fluid. ABDOMINAL DOPPLER Patent hepatic vasculature with antegrade flow. Report Verified by: Scotty Wasserman MD at 10/28/2024 4:42 PM EDT US Abdomen Limited Result Date: 10/28/2024 IMPRESSION: ABDOMINAL ULTRASOUND Heterogeneous echogenicity in the region of the gallbladder fossa suspicious for a hematoma. Perihepatic fluid. ABDOMINAL DOPPLER Patent hepatic vasculature with antegrade flow. Report Verified by: Scotty Wasserman MD at 10/28/2024 4:42 PM EDT US Abdomen Limited Result Date: 10/27/2024 IMPRESSION: RIGHT UPPER QUADRANT 1. Small area of parenchymal heterogeneity in the liver transplantnear the falciform ligament fissure, possibly representing fat, small intraparenchymal hematoma, orhemostatic material. This can be reassessed on follow-up. The liver allograft otherwise appears normal. 2. Small volume of perihepatic free fluid. LIVER DOPPLER 1. Patent hepatic vasculature with normal directional flow. Waveforms within normal limits. Report Verified by: Alberto Rodriguez MD at 10/27/2024 10:38 AM EDT US Duplex Lzj-Iey-Ljjvyca Comp Result Date: 10/27/2024 IMPRESSION: RIGHT UPPER QUADRANT 1. Small area of parenchymal heterogeneity in the liver transplant near the falciform ligament fissure, possibly representing fat, small intraparenchymal hematoma, or hemostatic material. This can be reassessed on follow-up. The liver allograft otherwise appears normal. 2. Small volume of perihepatic free fluid. LIVER DOPPLER 1. Patent hepatic vasculature with normal directional flow. Waveforms within normal limits. Report Verified by: Alberto Rodriguez MD at 10/27/2024 10:38 AM EDT US Renal Transplant Result Date: 10/27/2024 IMPRESSION: 1. Normal grayscale appearance of the renal transplant allograft. 2. Patent renal transplant vasculature and waveforms within normal limits. Report Verified by: Alberto Rodriguez MD at 10/27/2024 10:28 AM EDT X-ray Portable Chest Result Date: 10/27/2024 IMPRESSION: Endotracheal tube tip 7 cm above the sean. Consider advancement. Changed configuration of the PA catheter as detailed above, the tip projecting over the central mediastinum. Repositioning recommended. Bibasilar parenchymal opacities without significant change. No overt edema. Report Verified by: Chinedu Rodriges MD at 10/27/2024 9:22 AM EDT X-ray Abdomen AP view Result Date: 10/27/2024 FINDINGS/IMPRESSION: No unexpected retained radiopaque surgical instrument. Enteric suction catheter sidehole projects over the gastric antrum and tip projects over the peripyloric region. Right upper quadrant and mid abdominal surgical drains. Right lower quadrant ureteral stent. Embolization material and surgical clips in the left upper quadrant and mid abdomen. Surgical jerry project over the left hip and left chest wall. Findings communicated to Michela Szymanski RN via telephone by Ag Garcia MD on 10/27/2024 7:20 AM EDT. Approved by Ag Garcia MD on 10/27/2024 7:48 AM EDT I have personally reviewed the images and I agree with this report. Report Verified by: Lexx Hansen MD at 10/27/2024 7:49 AM EDT Assessment: Blair Gilbert is a 39 y.o. 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 Plan: Liver transplant recipient ([facility]) [Z94.4] Neuro: - Multimodal pain control: tylenol, robaxin. PRN oxycodone/dilaudid CV: Improvement of tachycardia overnight, suspect vasopalegia vs hypovolemic. - Off pressors - D/c MAC and arterial line - Monitor Qtc (prolonged earlier in admission) with repeat EKG today Pulm: - On 1L this am, wean as tolerated - Continue IS - Home loratadine FEN/GI s/p OLT: Tachycardia improved and hgb responsive to transfusion. Will continue to monitor - Liver enzymes generally improving (though bili 4.2 from 2.5) - POD 0 RUQ ultrasound: small areas of parenchymal heterogeneity in liver; patent hepatic vasculature - Repeat ultrasound POD 5 - DC IVF - Diet: Regular - Protonix 40 mg /Renal s/p DDKT: Bicarb low at 17 this am, plan to start bicitra. - Bicitra 30 mL BID - Cr 1.93, baseline ~3.5, making good urine - POD 0 renal ultrasound: patent renal transplant vasculature and waveforms - Plan for berkowitz out tomorrow Heme: Most recent hgb 9.0 g/dL from 8.0 following 2 unit of pRBCs in last 24 hrs. - Transfuse to maintain hgb >7 g/dL - Trend TEG per protocol and transfuse as appropriate (significant OR blood loss 10/26) - Admission plt 56, most recently 41 Endo: - Insulin: NPH 10u BID, HDSSI with meals - Home Synthroid MSK: - PT/OT when able ID: - Transplant ID following - CMV R+: valganciclovir, 3 months - PJP prophylaxis: bactrim SS, 6 months - Antifungal prophylaxis: micafungin - Perioperative antibiotics complete - Intraoperative cultures: No growth after 2 days, fungal NGTD IS: - Pred taper - Cellcept 500 mg BID - Tacrolimus 2 mg BID PPX: SQH, SCDs DISPO: floor KENYETTA HARTMAN, MS4 [facility] General Surgery 10:08 AM 10/29/2024 Cosigned by Lydia Sanchez MD at 10/29/2024 2:12 PM EDT Associated attestation - Lydia Sanchez MD - 10/29/2024 2:12 PM EDT This patient was seen and examined by the SAWYER/Resident team on 10/29/2024. I have discussed the patient's care with the team. Immunosuppression reviewed and discussed with multidisciplinary team. I have personally seen and examined this patient on 10/29/2024. POD SLK, 3 units of blood yesterday AFVSS Pain well controlled Liver allograft function excellent Cr normal Drains serosang Advance diet as tolerated HSQ IS: tacro, mmf, prednisone Lydia Sanchez MD PhD Transplant Surgery * Royer Wells, RONALDO - 10/29/2024 9:53 AM EDT EKG PERFORMED * Lavell Kramer MD - 10/29/2024 8:58 AM EDT INFECTIOUS DISEASE PROGRESS NOTE 10/29/2024 8:57 AM Blair Gilbert is a 39 y.o. male patient. Hospital Day: 4 Chief Complaint/Reason for Follow-up: antibiotics Subjective: Afebrile Tolerating PO meds No diarrhea Feeling well Review of Systems Constitutional: Positive for fatigue. Negative for chills and fever. Respiratory: Negative for cough and shortness of breath. Cardiovascular: Positive for leg swelling. Negative for chest pain. Gastrointestinal: Positive for abdominal pain. Negative for diarrhea. Skin: Positive for wound. Negative for rash. Objective: Vital signs: Vitals: 10/29/24 0600 BP: (!) 143/93 Pulse: 100 Resp: 16 Temp: SpO2: 96% Temp last 24 hours:Temp (24hrs), Av.2 ??F (36.8 ??C), Min:97.9 ??F (36.6 ??C), Max:98.5 ??F (36.9 ??C) Scheduled Meds: acetaminophen 975 mg Oral Q8H citric acid-sodium citrate 30 mL Oral BID eye ointment Both Eyes BID FLUoxetine 20 mg Oral Daily 0900 heparin 5,000 Units Subcutaneous 3 times per day insulin lispro 0-10 Units Subcutaneous Nightly (2099) insulin lispro 0-12 Units Subcutaneous TID AC insulin lispro 4 Units Subcutaneous TID AC insulin NPH 10 Units Subcutaneous BID levothyroxine 75 mcg Oral DAILY 0600 loratadine 10 mg Oral Daily 0900 melatonin 6 mg Oral Nightly (2099) methocarbamoL 1,000 mg Oral QID [START ON 10/30/2024] methylPREDNISolone sod suc(PF) 50 mg Intravenous Once Followed by [START ON 10/31/2024] predniSONE 40 mg Oral Once Followed by [START ON 11/01/2024] predniSONE 30 mg Oral Once Followed by [START ON 11/02/2024] predniSONE 25 mg Oral Once Followed by [START ON 11/03/2024] predniSONE 20 mg Oral Daily 0900 micafungin 50 mg Intravenous Q24H mycophenolate (CELLCEPT) IVPB 500 mg Intravenous BID pantoprazole 40 mg Oral DAILY 0600 sulfamethoxazole-trimethoprim 1 tablet Oral Daily 0900 tacrolimus 5 mg Oral BID valGANciclovir 450 mg Oral Daily 0900 Continuous Infusions: norepinephrine Stopped (10/28/24 0637) sodium chloride 0.9 % 75 mL/hr (10/28/24 1900) PRN Meds:dextrose 10% in water OR dextrose 10% in water, HYDROmorphone OR HYDROmorphone, oxyCODONE OR oxyCODONE Intake/Output last 3 shifts: Date 10/28/24 07 - 10/29/24 0659 10/29/24 07 - 10/30/24 0659 Shift 0729-3150 2283-0669 4116-4807 24 Hour Total 5484-4339 8478-8765 7803-1502 24 Hour Total INTAKE P.O. 240 0 240 P.O. 240 0 240 I.V.(mL/kg) 1348.7(11) 374.7(3.1) 775.6(6.3) 2499(20.4) Volume Infused (mL) 15.5 15.5 Volume (mL) Insulin 6.8 6.8 Volume (mL) Norepinephrine 12.7 12.7 Volume (mL) (sodium chloride 0.9 % IV infusion) 804.8 804.8 Volume (mL) (sodium chloride 0.45% (1/2 NS) infusion) 255 255 Volume (mL) (sodium chloride 0.9 % IV infusion) 253.9 374.7 775.6 1404.2 Blood 7739 145 7409 Albumin 750 750 Volume (Transfuse RBC Transfusion Rate: Per dept routine) 310 310 Volume (Transfuse RBC Transfusion Rate: Per dept routine) 271 271 IV Piggyback 918.4 755 09 8829.4 Volume (mL) (micafungin (MYCAMINE) 50 mg in sodium chloride 0.9 % 100 mL Mebs1Rme IVPB) 99.9 99.9 Volume (mL) (albumin human 5%) 823.7 823.7 Volume (mL) (potassium chloride (KCl)/Sterile water 50 mL 20 mEq/50 mL IVPB 20 mEq) 128.1 128.1 Volume (mL) (mycophenolate (CELLCEPT) 500 mg in dextrose 5% in water (D5W) 50 mL IVPB) 94.7 50 144.7 Shift Total(mL/kg) 3567.2(29.1) 873.7(7.1) 825.6(6.7) 5266.5(43) OUTPUT Urine(mL/kg/hr) 1455(1.5) 1255(1.3) 1650(1.7) 4360(1.5) Output (mL) (IUC (Berkowitz) Triple-lumen (3-Way) 18 Fr.) 1455 1255 1650 4360 Drains 250 205 265 720 Output (mL) (Drain Abdomen Inferior;Right) 200 175 250 625 Output (mL) (Drain 2 Left;Superior) 50 30 15 95 Shift Total(mL/kg) 1705(13.9) 1460(11.9) 1915(15.6) 5080(41.5) Weight (kg) 122.5 122.5 122.5 122.5 122.5 122.5 122.5 122.5 Physical Exam Constitutional: General: He is not in acute distress. HENT: Head: Normocephalic and atraumatic. Eyes: General: Scleral icterus present. Conjunctiva/sclera: Conjunctivae normal. Pulmonary: Breath sounds: Rales present. No wheezing. Abdominal: Tenderness: There is abdominal tenderness. Comments: Incision clean and dressed Musculoskeletal: General: Swelling present. No deformity. Skin: General: Skin is warm. Coloration: Skin is not jaundiced. Neurological: General: No focal deficit present. Mental Status: He is alert and oriented to person, place, and time. Labs: Lab 10/29/24 0507 WBC 7.8 HEMOGLOBIN 9.0* HEMATOCRIT 26.7* MEAN CORPUSCULAR VOLUME 87.4 PLATELETS 41* Lab 10/29/24 0507 SODIUM 144 POTASSIUM 3.8 CHLORIDE 113* CO2 17* BUN 57* CREATININE 1.93* GLUCOSE 110* CALCIUM 9.3 MAGNESIUM 2.1 PHOSPHORUS 4.8* Lab 10/29/24 0507 ALK PHOS 51 AST 31 ALT 88* BILIRUBIN TOTAL 4.2* BILIRUBIN DIRECT 2.85* Lab 10/28/24 1109 10/25/24 2343 10/25/24 2217 PROTHROMBIN TIME 14.3 < > 21.7* INR POC -- < > -- INR 1.1 < > 1.8* APTT -- -- 41.7* < > = values in this interval not displayed. Assessment/Plan: 39 y.o. M s/p SLK with prolonged Qtc on routine EKG Prophylactic abx - CMV R+, will need 3 months VGCV - will need 6 months PJP proph, ideally with Bactrim SS daily - needs 1 month antifungal prophylaxis; currently covered with Micafungin 50mg IV daily - repeat EKG today - if EKG yields reasonable Qtc, could use Fluconazole as per protocol with Qt monitoring after dosegiven - if Qtc prolonged again, could consider weekly IV Rezafungin at d/c to complete the month of prophylaxis Lavell Kramer MD 10/29/[phone] * Jonh Moreno MD - 10/29/2024 6:47 AM EDT SURGICAL ICU PROGRESS NOTE 10/29/2024 6:47 AM Name: Blair Gilbert CSN: [id number] HPI: Blair Gilbert is a 39 y.o. male with a history HLD, RCC (s/p ablation 2022), chronic thrombocytopenia, hypothyroidism, allergies, chronic hypotension, ESLD secondary to EToH cirrhosis, c/b esophageal varices and hepatorenal syndrome, now s/p staged Simultaneous Liver Kidney Transplant. MELD 3.0: 21 at 10/29/2024 5:07 AM Calculated from: Serum Creatinine: 1.93 mg/dL at 10/29/2024 5:07 AM Serum Sodium: 144 mmol/L (Using max of 137 mmol/L) at 10/29/2024 5:07 AM Total Bilirubin: 4.2 mg/dL at 10/29/2024 5:07 AM Serum Albumin: 3.5 g/dL at 10/29/2024 5:07 AM INR(ratio): 1.1 at 10/28/2024 11:09 AM Age at listing (hypothetical): 39 years Sex: Male at 10/29/2024 5:07 AM OR Course (10/26/24): - Procedure: OLT, temp closure, bile duct in discontinuity - IVF: 9 L crystalloid - Blood Products: 11 pRBC, 11FFP, 2 platelet, 1 cryo - Vasopressors: levo, vaso, epi, methylene blue - EBL: 19L - UOP: 1.3L - Other: cell saver 6.1L - Last Hgb: 9.5 OR Course (10/27/24) - Procedure: Bile duct anastomosis, DDKT 24hr events: - No acute events overnight Past Medical History: Diagnosis Date Alcoholic cirrhosis [...] Location: CARDIAC CATH LABS; Service:Cath; Laterality: N/A; LIVER-KIDNEY TRANSPLANT N/A 10/25/2024 Procedure: LIVER TRANSPLANT; Surgeon: Harvey Domínguez III, MD; Location: OR; Service: Transplant; Laterality: N/A; NEPHRECTOMY TRANSPLANTED ORGAN N/A 10/27/2024 Procedure: Donor Kidney Transplant , Back Bench Preparation Donor Kidney, Baseline Kidney transplant biopsy , Insertion of Indwelling Stent , Removal of Perihepatic packing; Surgeon: Harvey Domínguez III, MD; Location: OR; Service:Transplant; Laterality: N/A; Home Medications Medication Sig Taking? Last Dose ciprofloxacin HCl (CIPRO) 500 MG tablet Take 1 tablet (500 mg total) by mouth daily. Yes 10/24/2024 FLUoxetine (PROZAC) 20 MG capsule Take 1 capsule (20 mg total) by mouth daily. Yes 10/25/2024 at 9:00 AM folic acid (FOLVITE) 1 MG tablet Take 1 tablet (1 mg total) by mouth daily. Yes 10/24/2024 levothyroxine (SYNTHROID) 75 MCG tablet Take 1 tablet (75 mcg total) by mouth every morning before breakfast. Yes 10/25/2024 at 9:00 AM loratadine (CLARITIN) 10 mg tablet Take 1 tablet (10 mg total) by mouth daily as needed for Allergies (itching). Yes 10/25/2024 at 9:00 AM midodrine (PROAMATINE) 10 MG tablet Take 1 tablet (10 mg total) by mouth 3 times a day. Yes 10/25/2024 at 9:00 AM mycophenolate (CELLCEPT) 250 mg capsule Take 2 capsules (500 mg total) by mouth 2 times a day. Yes pantoprazole (PROTONIX) 40 MG tablet Take 1 tablet (40 mg total) by mouth every morning before breakfast. Yes 10/25/2024 at 9:00 AM potassium chloride (KLOR-CON M20) 20 MEQ tablet Take 2 tablets (40 mEq total) by mouth daily. Yes 10/24/2024 sodium bicarbonate 650 MG tablet Take 2 tablets (1,300 mg total) by mouth 3 times a day. Yes 10/25/2024 at 9:00 AM tacrolimus (PROGRAF) 1 MG capsule Take 10 capsules (10 mg total) by mouth 2 times a day. Use as directed Yes thiamine HCl (VITAMIN B-1) 100 MG tablet Take 1 tablet (100 mg total) by mouth daily. Yes 10/24/2024t 9:00 PM ursodioL (ACTIGALL) 300 mg capsule Take 1 capsule (300 mg total) by mouth 2 times a day. Yes 10/25/2024 at 9:00 AM zinc sulfate (ZINCATE) 50 mg zinc (220 mg) capsule Take 1 capsule (220 mg total) by mouth daily. Yes 10/25/2024 at 9:00 PM acetaminophen (TYLENOL) 325 MG tablet Take 3 tablets (975 mg total) by mouth every 8 hours. alcohol swabs PadM Use as instructed. apixaban (ELIQUIS) 2.5 mg Tab Take 1 tablet (2.5 mg total) by mouth 2 times a day. aspirin 81 MG chewable tablet Chew 1 tablet (81 mg total) by mouth daily. atovaquone (MEPRON) 750 mg/5 mL suspension Take 10 mLs (1,500 mg total) by mouth daily for 30 doses. blood sugar diagnostic (GLUCOSE BLOOD) Strp Use to test blood sugar up to 4 times a day. blood-glucose meter (TRUE METRIX GLUCOSE METER) Misc Use to test blood sugar up to 4 times a day. DEXCOM G7 PROP WORKER Misc Use reader as directed. DEXCOM G7 SENSOR Radha Use 1 sensor as directed every 10 days. ergocalciferol (ERGOCALCIFEROL) 1,250 mcg (50,000 unit) capsule Take 1 capsule (50,000 Units total)by mouth once a week. famotidine (PEPCID) 20 MG tablet Take 1 tablet (20 mg total) by mouth 2 times a day. fluconazole (DIFLUCAN) 200 MG tablet Take 1 tablet (200 mg total) by mouth daily for 30 days. insulin aspart, niacinamide, (FIASP FLEXTOUCH U-100 INSULIN) 100 unit/mL (3 mL) InPn Administer insulin with meals per sliding scale: Blood glucose 150-199 mg/dL =2 units, Blood glucose 200-249 mg/dL=4 units, Blood glucose 250-299 mg/dL =7 units, Blood glucose 300-349 mg/dL =10 units, Blood glucose greater than 349 mg/dL = 12 units insulin NPH isoph U-100 human 100 unit/mL (3 mL) InPn Inject 5 Units subcutaneously in the morning and at bedtime. lancets (ACCU-CHEK SOFTCLIX LANCETS) Mis Use to test blood sugar up to 4 times a day. methocarbamoL (ROBAXIN) 500 MG tablet Take 1 tablet (500 mg total) by mouth 3 times a day. naloxone (NARCAN) 4 mg/actuation [place] Apply 1 spray in one nostril if needed. Call 911. May repeat dose in other nostril if no response in 3 minutes. pen needle, diabetic 32 gauge x 32 Ndle For use with insulin pen. Use as instructed. polyethylene glycol (GLYCOLAX) 17 gram/dose powder Mix one capful (17 grams) in 8 ounces of liquid and drink by mouth daily as needed (Constipation). predniSONE (DELTASONE) 5 MG tablet Take 4 tablets (20 mg total) by mouth daily. senna-docusate (SENNOSIDES-DOCUSATE SODIUM) 8.6-50 mg per tablet Take 1 tablet by mouth at bedtime as needed for Constipation. sulfamethoxazole-trimethoprim (BACTRIM) 400-80 mg per tablet Take 1 tablet by mouth daily. valGANciclovir (VALCYTE) 450 mg tablet Take 1 tablet (450 mg total) by mouth daily. Scheduled Meds: acetaminophen 975 mg Oral Q8H citric acid-sodium citrate 30 mL Oral BID eye ointment Both Eyes BID FLUoxetine 20 mg Oral Daily 0900 heparin 5,000 Units Subcutaneous 3 times per day insulin lispro 0-10 Units Subcutaneous Nightly (2100) insulin lispro 0-12 Units Subcutaneous TID AC insulin lispro 4 Units Subcutaneous TID AC insulin NPH 10 Units Subcutaneous BID levothyroxine 75 mcg Oral DAILY 0600 loratadine 10 mg Oral Daily 0900 melatonin 6 mg Oral Nightly (2100) methocarbamoL 1,000 mg Oral QID methylPREDNISolone sod suc(PF) 60 mg Intravenous Once Followed by [START ON 10/30/2024] methylPREDNISolone sod suc(PF) 50 mg Intravenous Once Followed by [START ON 10/31/2024] predniSONE 40 mg Oral Once Followed by [START ON 11/01/2024] predniSONE 30 mg Oral Once Followed by [START ON 11/02/2024] predniSONE 25 mg Oral Once Followed by [START ON 11/03/2024] predniSONE 20 mg Oral Daily 0900 micafungin 50 mg Intravenous Q24H mycophenolate (CELLCEPT) IVPB 500 mg Intravenous BID pantoprazole 40 mg Oral DAILY 0600 sulfamethoxazole-trimethoprim 1 tablet Oral Daily 0900 tacrolimus 5 mg Oral BID valGANciclovir 450 mg Oral Daily 0900 Continuous: norepinephrine Stopped (10/28/24 0637) sodium chloride 0.9 % 75 mL/hr (10/28/24 1900) PRN Meds: dextrose 10% in water OR dextrose 10% in water, HYDROmorphone OR HYDROmorphone, oxyCODONE OR oxyCODONE Allergies[1] Social History Tobacco Use Smoking status: Former Types: Cigarettes Smokeless tobacco: Current Substance Use Topics Alcohol use: Yes Comment: History of alcohol abuse, reports no use in 3 week- typically endorses use as 4 glasses ofwine a days History reviewed. No pertinent family history. REVIEW OF SYSTEMS: Review of Systems conducted with patient and pertinent positives are noted in HPI. CONSTITUTIONAL General: Appears well, non acute distress Temp: [97.9 ??F (36.6 ??C)-98.6 ??F (37 ??C)] 97.9 ??F (36.6 ??C) Heart Rate: [94-116] 100 Resp: [11-21] 16 BP: (114-151)/(40-103) 143/93 Arterial Line BP: (98-154)/(41-80) 142/72 HEENT Exam: NC/AT, pupils equal, no facial swelling A/P: - No acute issues RESPIRATORY Exam: Non labored breathing Ventilator Settings: O2 Device: Patient Vitals for the past 4 hrs: O2 Device O2 Flow Rate (L/min) 10/29/24 0400 Nasal Cannula 1 L/min Blood Gas Measurements pH: 7.37 (10/27/24 1440) PCO2: 35 (10/27/24 1440) PO2: 92 (10/27/24 1440) HCO3: (!) 21 (10/27/24 1440) Base Excess: (!) -4.6 (10/27/24 1440) SaO2: 98 (10/27/24 1440) Total RSBI: 11 (10/27/24 1140) Recent Labs 10/27/24 0800 10/27/24 1235 10/27/24 1440 PHART 7.36 7.35 7.37 PCO2 37 37 35 PO2ART 245* 182* 92 [id number] 22 21* 21* BEART -4.2* -4.8* -4.6* A/P: # Acute respiratory insufficiency - Intubated post OR secondary to transfusion, no concerns for oxygenation during case - Extubated 10/27/24 - On 1L O2 - Continue IS, Pulm toilet, OOBAT - Wean O2 as able for SpO2 > 92% # Chronic Allergies - Continue home claritin CARDIOVASCULAR Exam: tachycardic, regular rhythm Troponin: No results found for: TROPONINI Cardiac data: 10/09/24 - Left ventricle: The cavity size is [...] at baseline or with provocation, shows no [id number] atrial level shunt. - Pulmonary arteries: Systolic [...] of stress attained. The study is non-diagnostic. A/P: - MAP goal > 65 # Shock, Hypovolemic - Given large resuscitation during OR - Pressor need levo, vaso, epi, methylene blue bolus immediately OR s/p reperfusion - Pre takeback 1- Off epi, methylene blue - Off pressors 24hrs - MAP 65 on cuff goal - DC dalia today # HLD - Not on statin NUTRITION A/P: - Diet: Clear liquid diet - No acute issues GASTROINTESTINAL Exam: Abdomen soft, ND, Dressing over incisions Recent Labs 10/27/24 1713 10/28/24 0005 10/28/24 0413 10/28/24 1109 10/29/24 0507 ALKPHOS 27* 27* -- 26* -- 51 ALT 134* 134* -- 101* -- 88* AST 62* 60* -- 44* -- 31 BILITOT 1.7* 1.7* -- 2.3* -- 4.2* ALBUMIN 2.9* 2.9* 2.9* < > 3.1* 3.1* 3.3* 3.5 3.5 BILIDIRECT 1.10* 1.17* -- 1.67* -- 2.85* PROT 4.1* 4.1* -- 4.5* -- 5.2* < > = values in this interval not displayed. 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 - suppository today Bowel regimen: Miralax today, hold senna til regular diet Nausea: Zofran PRN FLUID/ELECTROLYTES Recent Labs 10/28/24 0413 10/28/24 1109 10/29/24 0507 NA 142 144 144 K 3.5 3.4* 3.8 CL 111* 112* 113* CO2 22 22 17* BUN 58* 57* 57* CREATININE 2.24* 2.01* 1.93* CALCIUM 9.1 8.8 9.3 MG 2.2 2.1 2.1 PHOS 4.8* 4.0 4.8* GLUCOSE 103* 108* 110* Intake/Output Summary (Last 24 hours) at 10/29/2024 0647 Last data filed at 10/29/2024 0600 Gross per 24 hour Intake 5266.45 ml Output 5080 ml Net 186.45 ml IV Fluids: norepinephrine, Last Rate: Stopped (10/28/24 0637) sodium chloride 0.9 %, Last Rate: 75 mL/hr (10/28/24 1900) A/P: - Goal UOP >0.5 cc/kg/hr - Strict I/Os - Manual Electrolyte Replacement - IVF normal saline 75, consider HLIVF/Diuresis today - torsemide 20 at home Hypokalemia - Chronic - on PO K at baseline - Needs aggressive replacement - Needs K today Low bicarb - 17 likely related to elevated chloride - HLIVF RENAL/ Recent Labs 10/28/24 0413 10/28/24 1109 10/29/24 0507 BUN 58* 57* 57* CREATININE 2.24* 2.01* 1.93* A/P: # Hepatorenal Syndrome # S/p DDKT Baseline Cr 3.5 - Admission Cr 3.87, current 1.93 with downtrending BUN - Sodium bicarb 1300mg TID, hold - Labs per transplant protocol - US 10/27 with appropriate flows, no concerns - 3 day berkowitz - dc 10/30 - Makes urine at baseline - Has never required dialysis - Continue berkowitz Metabolic acidosis - Started Bicitra, per transplant SKIN/MUSCULOSKELETAL Exam: Warm, dry; no significant edema A/P: ADDY HEMATOLOGIC Labs: Recent Labs 10/28/24 1449 10/28/24200310/29/24 0507 WBC 4.0 3.9 7.8 HGB 7.5* 8.0* 9.0* HCT 21.4* 23.0* 26.7* MCV 87.6 86.4 87.4 PLT 30* 29* 41* No results for input(s): ANTIXALMWHEP in the last 72 hours. Recent Labs 10/27/24 1713 10/28/24 0413 10/28/24 1109 INR 1.1 1.1 1.1 PROTIME 15.2* 14.6 14.3 No results for input(s): TEGANGLE , TEGKTIME , AGMAGUXN90 , TEGMAXAMPL , TEGRTIME , CBMZ in the last 72 hours. A/P: # Acute blood loss anemia - Massive OR blood loss/transfusion 10/26/24: EBL 17L, 10 pRBC, 10FFP, 2 platelet, 4 cryo - Hgb stable prior to OR takeback - 1 unit pRBC overnight for drift, okay response 6.7(7.3) - CBCs stable - Trend TEG, normalize with product - none given - If hypotensive consider product resuscitation # Coagulopathy - Received 5 cryo, 1FFP. 1 platelet prior to OR takeback - Trend teg - correct as needed # Chronic Thrombocytopenia - Admission platelet 56 - Monitor with CBC per protocol - Appropriate today Transfusion parameters: -Transfuse pRBC for hgb < 7 -Transfuse FFP for R time > 9 or INR > 1.7 and bleeding -Transfuse Cryoprecipitate for MA CFF < 15, or low fibrinogen -Transfuse platelets for MA < 55 - Give TXA for LY30 > 3% ENDOCRINE Glucose range: Lab 10/29/24 0507 10/28/2410/28/25 1731 10/28/24 1254 10/28/24 1109 10/28/24 0907 10/28/24 0810 10/28/24 0617 10/28/24 0455 10/28/24 0413 10/28/24 0404 10/28/24 0203 10/28/24 0005 10/27/24 1800 10/27/24 1713 10/27/24 0905 10/27/24 0800 10/27/24 0121 10/27/24 0013 10/26/24 1658 10/26/24 1642 10/26/24 0610 10/26/24 0514 10/26/24 0424 10/26/24 0331 10/26/24 0140 10/26/24 0039 10/25/24 2340 POC GLU MONITORING DEVICE -- 122* 130* 119* -- 97 102* 100 104* -- 103* < > -- < > -- < > -- < > -- < > -- < > -- -- -- -- -- -- POCGLUART -- -- -- -- -- -- -- -- -- -- -- -- -- -- -- -- -- -- -- -- -- -- 183* 185* 153* 116* 116* 101* GLUCOSE 110* -- -- -- 108* -- -- -- -- 103* -- -- 118* -- 125* -- 111* -- 126* -- 127* < > ---- -- -- -- -- < > = values in this interval not displayed. Insulin Orders Dose Frequency Start End insulin (HumuLIN R) infusion - TITRATABLE NURSING PROTOCOL (HYPERGLYCEMIA) 0-28 Units/hr Continuous10/25/2024 10/26/2024 Admin Instructions: FOR O.R. USE only. Titrate in O.R. for blood glucose management HIGH ALERT MEDICATION Route: Intravenous A/P: # Stress induced hyperglycemia Home meds: None Last A1c: 3.7 - Insulin gtt on/off - 25 units insulin last 24 hours - No correction last 24 hours, meal time held - Today NPH 02/20, no correction with meals, HDSSI # Hypothyroidism - Home levothyroxine 75 mcg daily, resumed INFECTIOUS DISEASE Micro data: - Intra-op Cultures: - Surgical swab from abdomen: NGTD - Urine culture: NGTD - Anaerobic culture: NGTD - Fungus culture: NGTD - Cultures from kidney with stain: NGTD - Fungus kidney: NGTD - Anaerobic Kidney: NGTD Current Anti-Infectives Dose Frequency Start End cefTRIAXone (ROCEPHIN) 2 g in sodium chloride 0.9% 20 mL IV Push () 2 g Every 12 hours 10/26/2024 10/28/2024 Admin Instructions: Give 24 hours after pre-op dose. ADMINISTER IV PUSH. Infuse over 5 minutes. Draw up 20 mL Sodium Chloride 0.9% into empty syringe. Inject 20 mL into vial of Ceftriaxone. Shake well. Withdraw volume into syringe and administer immediately. Route: Intravenous Linked Group 1: Placed in And Linked Group micafungin (MYCAMINE) 50 mg in sodium chloride 0.9 % 100 mL [id number] IVPB 50 mg Every 24 hours 10/27/2024 -- Admin Instructions: PROTECT FROM LIGHT FLUSH LINE w/NSS PRIOR TO ADMINISTRATION Use Mgdd2Hep Adapter - Mix Thoroughly Before Administration Route: Intravenous sulfamethoxazole-trimethoprim (BACTRIM) 400-80 mg per tablet 1 tablet 1 tablet Daily 10/29/2024 -- Route: Oral valGANciclovir (VALCYTE) tablet 450 mg 450 mg Daily 10/29/2024 -- Admin Instructions: LEVEL 2 HAZARDOUS MEDICATION Route: Oral A/P: # Leukocytosis Likely reactive in s/o surgery - Continue perioperative Abx, ampicillin, micafungin (2/2 QTC, see ID note from 10/27 for plan. - Monitor for clinical s/s of infection # Immunosuppression - pred taper, cellcept, Thymo, tac Prophylaxis - micafungin - Bactrim - valganciclovir NEUROLOGIC Exam: Follows commands in all four extremities A/P: # Agitation - ADDY # Analgesia - MMPC - tylenol, po robaxin, oxycodone PSYCHIATRIC Exam: Mood/affect appropriate Barth Agitation Sedation Scale: 0 Overall CAM-ICU : No Delirium A/P: - ADDY # Mood Disorder - prozac 20 daily, resumed Sleep: ADDY Delirium: ADDY CHECKLIST Patient Lines/Drains/Airways Status Active Epidural Line / PICC Line / PIV Line / ART Line / Line / CVC Line Name Placement date Placement time Site Days Peripheral IV 10/28/24 Anterior;Left Forearm 10/28/24 1200 Forearm less than 1 Arterial Line 10/25/24 Right Radial 10/25/24 2245 Radial 3 Introducer 10/25/24 Internal jugular Right 10/25/24 2355 Internal jugular 3 Central Line? Yes - Reason: Hemodynamic instability DC today Arterial Line? R radial Dalia- DC today Urinary Catheter? Berkowitz - Reason: Adequate I/O DVT Prophylaxis: Subcutaneous Heparin GI Prophylaxis: PPI PT/OT: Engage today Activity: OOB today DISPOSITION Remain in SICU, pending primary JOHN MORENO MD 10/29/2024 6:47 AM DISPOSITION: Remain in ICU [1] Allergies Allergen Reactions Adhesive Itching and Rash Tegaderm adhesive on Ivs, pt states its tolerable Duloxetine Other (See Comments) Became Manic * Lavell Kramer MD - 10/28/2024 9:06 AM EDT INFECTIOUS DISEASE PROGRESS NOTE 10/28/2024 9:03 AM Blair Gilbert is a 39 y.o. male patient. Hospital Day: 3 Chief Complaint/Reason for Follow-up: antibiotics Subjective: Afebrile Extubated Tolerating PO meds Abdo pain managed Review of Systems Constitutional: Positive for fatigue. Negative for chills and fever. Respiratory: Positive for cough. Negative for shortness of breath. Cardiovascular: Positive for leg swelling. Negative for chest pain. Gastrointestinal: Positive for abdominal pain. Negative for diarrhea. Skin: Positive for wound. Negative for rash. Objective: Vital signs: Vitals: 10/28/24 0900 BP: 144/85 Pulse: 116 Resp: 16 Temp: SpO2: 92% Temp last 24 hours:Temp (24hrs), Av.5 ??F (36.9 ??C), Min:97.8 ??F (36.6 ??C), Max:99 ??F (37.2??C) Scheduled Meds: acetaminophen 975 mg Oral Q8H albumin human 5% 250 mL Intravenous Q3HRS cefTRIAXone (ROCEPHIN) IVPB 2 g Intravenous Q12H eye ointment Both Eyes BID FLUoxetine 20 mg Oral Daily 0900 heparin 5,000 Units Subcutaneous 3 times per day insulin lispro 0-10 Units Subcutaneous Nightly (2100) insulin lispro 0-12 Units Subcutaneous TID AC insulin lispro 4 Units Subcutaneous TID AC insulin NPH 10 Units Subcutaneous BID levothyroxine 75 mcg Oral DAILY 0600 loratadine 10 mg Oral Daily 0900 methocarbamoL 1,000 mg Oral QID [START ON 10/29/2024] methylPREDNISolone sod suc(PF) 60 mg Intravenous Once Followed by [START ON 10/30/2024] methylPREDNISolone sod suc(PF) 50 mg Intravenous Once Followed by [START ON 10/31/2024] predniSONE 40 mg Oral Once Followed by [START ON 11/01/2024] predniSONE 30 mg Oral Once Followed by [START ON 11/02/2024] predniSONE 25 mg Oral Once Followed by [START ON 11/03/2024] predniSONE 20 mg Oral Daily 0900 micafungin 50 mg Intravenous Q24H mycophenolate (CELLCEPT) IVPB 500 mg Intravenous BID pantoprazole 40 mg Oral DAILY 0600 tacrolimus 2 mg Oral BID Continuous Infusions: HYDROmorphone 6 mg/30 mL BLEACH BOILER PULLER norepinephrine 4 mcg/min (10/27/24 2318) sodium chloride 0.45% (1/2 NS) 120 mL/hr (10/28/24 0902) sodium chloride 0.9 % Stopped (10/27/24 0252) sodium chloride 0.9 % 100 mL/hr (10/27/24 1900) sodium chloride 0.9 % sodium chloride 0.9 % 20 mL/hr (10/28/24 0205) vasopressin 0.03 Units/min (10/27/24 1000) PRN Meds:dextrose 10% in water OR dextrose 10% in water, HYDROmorphone OR HYDROmorphone, naloxone, ondansetron, sodium chloride 0.45% (1/2 NS), sodium chloride 0.9 % Intake/Output last 3 shifts: Date 10/27/24 07 - 10/28/2465810/28/24 07 - 10/29/24 0659 Shift 0106-7808 6986-8380 1280-1597 24 Hour Total 8814-4392 3702-2200 4317-1296 24 Hour Total INTAKE P.O. 0 120 120 P.O. 0 120 120 I.V.(mL/kg) 1344.9(11) 508(4.1) 229.1(1.9) 2082(17) Volume (mL) Insulin 29.2 11.8 10.4 51.4 Volume (mL) Propofol 64.7 64.7 Volume (mL) Fentanyl 156.3 156.3 Volume (mL) Vasopressin 38.6 38.6 Volume (mL) Norepinephrine 69.7 5.2 2.5 77.4 Volume (mL) (sodium chloride 0.9 % IV infusion) 491 216.1 707.2 Volume (mL) (sodium chloride 0.45% (1/2 NS) infusion) 898.9 898.9 Volume (mL) (sodium chloride 0.9 % IV infusion) 87.7 87.7 Blood 250 310 560 Albumin 250 250 Volume (Transfuse RBC Transfusion Rate: Per dept routine) 310 310 NG/GT 30 30 Flushes (mL) ([REMOVED] NG/OG Tube Orogastric) 30 30 IV Piggyback 704.3 283 248.3 1235.6 Volume (mL) (isavuconazonium sulfate (CRESEMBA) 372 mg in sodium chloride 0.9 % 250 mL IVPB) 454.3 454.3 Volume (mL) (acetaminophen (OFIRMEV) IV infusion 1,000 mg) 100 100 200 Volume (mL) (micafungin (MYCAMINE) 50 mg in sodium chloride 0.9 % 100 mL [id number] IVPB) 100 100 Volume (mL) (albumin human 5%) 126 126 Volume (mL) (potassium chloride (KCl)/Sterile water 50 mL 20 mEq/50 mL IVPB 20 mEq) 100 100 Volume (mL) (AMPicillin 1 g in sodium chloride 0.9% 100 mL IVPB ([id number])) 100.1 57 42.9 200 Volume (mL) (mycophenolate (CELLCEPT) 500 mg in dextrose 5% in water (D5W) 50 mL IVPB) 50 5.3 55.3 Shift Total(mL/kg) 2079.3(17) 1161(9.5) 787.3(6.4) 4027.6(32.9) OUTPUT Urine(mL/kg/hr) 2195(2.2) 1000(1) 900(0.9) 4095(1.4) 490 490 Urine 360 360 Output (mL) (IUC (Berkowitz) Triple-lumen (3-Way) 18 Fr.) 1835 5247 531 6045 490 490 Emesis/NG output 50 50 Drainage Output (mL) ([REMOVED] NG/OG Tube Orogastric) 50 50 Drains 85 70 50 205 100 100 Output (mL) (Drain Abdomen Inferior;Right) 25 45 30 100 75 75 Output (mL) (Drain 2 Left;Superior) 60 25 20 105 25 25 Shift Total(mL/kg) 2330(19) 1070(8.7) 950(7.8) 4350(35.5) 590(4.8) 590(4.8) Weight (kg) 122.5 122.5 122.5 122.5 122.5 122.5 122.5 122.5 Physical Exam Constitutional: General: He is not in acute distress. HENT: Head: Normocephalic and atraumatic. Eyes: General: Scleral icterus present. Conjunctiva/sclera: Conjunctivae normal. Pulmonary: Breath sounds: Rales present. No wheezing. Abdominal: Tenderness: There is abdominal tenderness. Comments: Incision clean and dressed Musculoskeletal: General: Swelling present. No deformity. Skin: General: Skin is warm. Coloration: Skin is not jaundiced. Neurological: General: No focal deficit present. Mental Status: He is alert and oriented to person, place, and time. Labs: Lab 10/28/243 WBC 4.5 HEMOGLOBIN 7.3* HEMATOCRIT 21.0* MEAN CORPUSCULAR VOLUME 87.8 PLATELETS 38* Lab 10/28/24 0413 SODIUM 142 POTASSIUM 3.5 CHLORIDE 111* CO2 22 BUN 58* CREATININE 2.24* GLUCOSE 103* CALCIUM 9.1 MAGNESIUM 2.2 PHOSPHORUS 4.8* Lab 10/28/24 0413 ALK PHOS 26* AST 44* ALT 101* BILIRUBIN TOTAL 2.3* BILIRUBIN DIRECT 1.67* Lab 10/28/24 0413 10/25/24 2343 10/25/247 PROTHROMBIN TIME 14.6 < > 21.7* INR POC -- < > -- INR 1.1 < > 1.8* APTT -- -- 41.7* < > = values in this interval not displayed. Assessment/Plan: 39 y.o. M s/p SLK with prolonged Qtc on routine EKG Prophylactic abx - CMV R+, will need 3 months VGCV - will need 6 months PJP proph, ideally with Bactrim SS daily - needs 1 month antifungal prophylaxis; currently covered with Micafungin 50mg IV daily - repeat EKG today and tomorrow - if both EKGs yield reasonable Qtc, could use Fluconazole as per protocol with Qt monitoring afterdose given - if Qtc prolongs again, could consider weekly IV Rezafungin at d/c to complete the month of prophylaxis Lavell Kramer MD 10/28/[phone] * Caron Santos CNP - 10/28/2024 9:00 AM EDT Images from the original note were not included. Transplant Nephrology Progress Note Patient: Blair Gilbert [id number] SICU-28/USIC-28 Date of Admit: 10/25/2024. LOS: 3 days. Referring physician: Harvey Domínguez III, MD Chief Complaint: Direct admission for SLK Reason for Consult: Co-management of SLK recipient Interval History: Patient seen and evaluated at bedside in SICU. - Now extubated, on RA - 1 unit pRBC for Hgb 6.7 this am. - Denies chest pain, SOB, N/V/D. - AF, HDS; BP today: (!) 137/99. Low dose Levo overnight, off this am. - Allograft function: Cr 2.01, 24 hour urine output: 3,355 mL - Intake: 4.4 L. Output 4.5 L. Net -92 mL. Review of Systems: 10 point ROS was negative unless otherwise specified. ALLERGY: Allergies[1] PHYSICAL EXAM: Temp: [97.8 ??F (36.6 ??C)-99 ??F (37.2 ??C)] 98.3 ??F (36.8 ??C) Heart Rate: [88-116] 108 Resp: [8-21] 20 BP: (91-151)/(31-99) 137/99 Arterial Line BP: (83-137)/(30-61) 103/53 Wt Readings from Last 3 Encounters: 10/25/24 (!) 270 lb (122.5 kg) 10/10/24 (!) 263 lb 8 oz (119.5 kg) 09/05/24 (!) 262 lb 9.6 oz (119.1 kg) Physical Exam Vitals reviewed. Constitutional: General: He is not in acute distress. Appearance: He is ill-appearing. HENT: Head: Normocephalic and atraumatic. Eyes: Extraocular Movements: Extraocular movements intact. Cardiovascular: Rate and Rhythm: Normal rate and regular rhythm. Pulmonary: Effort: Pulmonary effort is normal. No respiratory distress. Breath sounds: Normal breath sounds. Abdominal: Palpations: Abdomen is soft. Genitourinary: Comments: +Berkowitz with dark urine Musculoskeletal: Right lower leg: Edema present. Left lower leg: Edema present. Skin: General: Skin is warm and dry. Neurological: Mental Status: He is alert and oriented to person, place, and time. Psychiatric: Mood and Affect: Mood normal. Behavior: Behavior normal. MEDS: Scheduled Meds: acetaminophen 975 mg Oral Q8H cefTRIAXone (ROCEPHIN) IVPB 2 g Intravenous Q12H eye ointment Both Eyes BID FLUoxetine 20 mg Oral Daily 0900 heparin 5,000 Units Subcutaneous 3 times per day insulin lispro 0-10 Units Subcutaneous Nightly (2100) insulin lispro 0-12 Units Subcutaneous TID AC insulin lispro 4 Units Subcutaneous TID AC insulin NPH 10 Units Subcutaneous BID levothyroxine 75 mcg Oral DAILY 0600 loratadine 10 mg Oral Daily 0900 methocarbamoL 1,000 mg Oral QID [START ON 10/29/2024] methylPREDNISolone sod suc(PF) 60 mg Intravenous Once Followed by [START ON 10/30/2024] methylPREDNISolone sod suc(PF) 50 mg Intravenous Once Followed by [START ON 10/31/2024] predniSONE 40 mg Oral Once Followed by [START ON 11/01/2024] predniSONE 30 mg Oral Once Followed by [START ON 11/02/2024] predniSONE 25 mg Oral Once Followed by [START ON 11/03/2024] predniSONE 20 mg Oral Daily 0900 micafungin 50 mg Intravenous Q24H mycophenolate (CELLCEPT) IVPB 500 mg Intravenous BID pantoprazole 40 mg Oral DAILY 0600 potassium chloride (KCl) 20 mEq Intravenous Q1H PILAR tacrolimus 2 mg Oral BID Continuous Infusions: HYDROmorphone 6 mg/30 mL BLEACH BOILER PULLER norepinephrine Stopped (10/28/24 0637) sodium chloride 0.9 % 75 mL/hr (10/28/24 1310) sodium chloride 0.9 % sodium chloride 0.9 % DATA: Reviewed in EMR Radiology last 48 hours: Reviewed in EMR Assessment: Blair Gilbert is a pleasant 39 y.o. 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 Presents as direct admission for SLK on 10/25/24. Medical problems being addressed in this encounter include the following: CKD IIIb/IV: - Presumed s/t HRS - [employer] Operator: Yovanny Curran at [facility] Allograft Function: S/p SLK 10/25- (kidney preemptive) - OLT 10/25-. EBL 19 L. Blood: 11 pRBC, 11 FFP, 2 plts, 1 cryo. Cell Saver 6.1 L. IVF: 9 L crystalloid. Pressors: Levo, Vaso, Epi, and methylene blue. - DDKT, washout, and bile duct reconstruction 10/27/24. cPRA 63 as of 10/15/24. DCD - NRP. KDPI 20. tCr 0.2. Kidney CIT 33:17 and WIT 27 min. Virtual and flow crossmatches negative. KT US 10/27/24: WNL UOP: 4.2 L B Renal Function: Cr: 2.01 Bun: 57 Pre-op Cr: 3.87 Electrolytes: Na: 144 K: 3.4 Cl: 112 Ma.1 Ca: 8.8 Phos: 4.0 Hypokalemia Immunosuppression: Per transplant surgery. Current IS: Pred taper, MMF 500 mg BID, and tacrolimus 2 mg BID Infectious disease/ppx: Relevant serologies: CMV D-/R+, EBV D+/R+, Toxo D-/R- CMV ppx: PJP ppx: BMD: Ca: 8.8 PO4: 4.0 Alb: 3.3 PTH: 36.0 on 10/25/2024 Vit D: 7.1 on 10/08/2024 Acid/base electrolytes: No acute issues Anion Gap: 10 Bicarb: 22 Lab Results Component Value Date CREATININE 2.01 (H) 10/28/2024 BUN 57 (H) 10/28/2024 NA 144 10/28/2024 K 3.4 (L) 10/28/2024 CL 112 (H) 10/28/2024 CO2 22 10/28/2024 Lab Results Component Value Date PHART 7.37 10/27/2024 PCO2 35 10/27/2024 PO2ART 92 10/27/2024 [id number] 21 (L) 10/27/2024 BEART -4.6 (L) 10/27/2024 [id number] 95.4 10/27/2024 [id number] 98 10/27/2024 Hemodynamics / Cardiovascular Status: Goal <130/80 BP: (!) 137/99 Volume Status: Intake/Output Summary (Last 24 hours) at 10/28/2024 1408 Last data filed at 10/28/2024 1400 Gross per 24 hour Intake 5538.77 ml Output 3725 ml Net 1813.77 ml Heme/Anemia of Chronic Disease: WBC 4.1 Goal HgB 10-12 mg/dL Hgb 7.1 Plt 37 Iron 128 on 10/25/2024 Ferritin 623.2 on 10/25/2024 TIBC: SEE COMMENT on 10/25/2024 % Iron Saturation: SEE COMMENT on 10/25/2024 [id number]: No results found for requested labs within last 3600 days. on No results found for requested labs within last 3600 days. Folate: No results found for requested labs within last 3600 days. on No results found for requested labs within last 3600 days. LDH: 102 on 10/08/2024 Haptoglobin: <30 on 10/08/2024 Bilirubin, Direct: No results found for requested labs within last 3600 days. on No results found for requested labs within last 3600 days. Bilirubin, Indirect: No results found for requested labs within last 3600 days. on No results foundfor requested labs within last 3600 days. General Recommendations: - Monitor urine output closely, strict I/O, daily weights. - Avoid nephrotoxins (NSAIDs, [id number], ARB, Contrast dye) - Monitor renal panel with phosphorus and magnesium levels. - Renally dose all medications. - Avoid supratherapeutic FK levels. Plan: - Cr slowly trending down with great UOP. Continue to monitor. - Noted KT US WNL - IS per transplant surgery - PPX not yet started - Replete K - Monitor CBC, s/p 1 unit pRBC this am Case discussed with consult attending. Agreed on the plan of care Please do not hesitate to give us a call for any questions. All recommendations are preliminary until attending attestation. Lauren Santos, SAMSON, [employer] PLANT OPERATOR, [employer]- Transplant Nephrology [phone] Preferred contact: secure chat The HPI, ROS, physical exam, test results, and assessment & plan were reviewed and copied forward (with edits) from a note written by me on 10/27/24. I have reviewed and updated the history, physical exam, data, assessment, and plan of the note so that it reflects my evaluation and management ofthe patient. [1] Allergies Allergen Reactions Adhesive Itching and Rash Tegaderm adhesive on Ivs, pt states its tolerable Duloxetine Other (See Comments) Became Manic Cosigned by Aaron Gonzalez MD at 10/28/2024 3:27 PM EDT Associated attestation - Aaron Gonzalez MD - 10/28/2024 3:27 PM EDT Pt seen, examined, and discussed with EZEKIEL on 10/28/2024. reviewed the chart including the labs and imaging studies. My additional comments below. 39 y.o. 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 S/p SLK 10/25-10/26 Has great UOP 4.2L Aaron Gonzalez MD, MEd, FASN * Shay Plata MD - 10/28/2024 7:41 AM EDT Liver Transplant Surgery Progress Note Name: Blair Gilbert CSN: [id number] Date: 10/28/2024 11:05 AM OR Date: 10/25/2024 - 10/27/2024 Subjective: 1 Day Post-Op Received one unit pRBCs overnight On low dose levo this morning Increasing tachycardia Reports worsening pain, on BLEACH BOILER PULLER Tolerated sips of clears No nausea/vomiting, no flatus/BMs Objective: BP 114/55 Pulse 112 Temp 98.6 ??F (37 ??C) Resp 15 Ht 6' 4 (1.93 m) Wt (!) 270 lb (122.5kg) SpO2 92% BMI 32.87 kg/m?? Physical Exam: Constitutional: No acute distress, cooperative, lying in bed comfortably. HEENT: Moist mucous membranes. Respiratory: Normal work of breathing on room air, equal chest rise bilaterally Cardiovascular: Tachycardia. Regular rhythm. Abdomen: Wound with dressing intact, R nia drain with serosanguinous fluid, L nia with bloody fluid. Abdomen is moderately-distended, with moderate surgical site tenderness. No rebound or guarding. /Anorectal: Berkowitz in place Extremities: No gross deformities, acyanotic Neuro: Attends well to exam, cooperative Medications Scheduled Meds: acetaminophen 975 mg Oral Q8H albumin human 5% 250 mL Intravenous Q3HRS cefTRIAXone (ROCEPHIN) IVPB 2 g Intravenous Q12H eye ointment Both Eyes BID FLUoxetine 20 mg Oral Daily 0900 heparin 5,000 Units Subcutaneous 3 times per day insulin lispro 0-10 Units Subcutaneous Nightly (2100) insulin lispro 0-12 Units Subcutaneous TID AC insulin lispro 4 Units Subcutaneous TID AC insulin NPH 10 Units Subcutaneous BID levothyroxine 75 mcg Oral DAILY 0600 loratadine 10 mg Oral Daily 0900 methocarbamoL 1,000 mg Oral QID [START ON 10/29/2024] methylPREDNISolone sod suc(PF) 60 mg Intravenous Once Followed by [START ON 10/30/2024] methylPREDNISolone sod suc(PF) 50 mg Intravenous Once Followed by [START ON 10/31/2024] predniSONE 40 mg Oral Once Followed by [START ON 11/01/2024] predniSONE 30 mg Oral Once Followed by [START ON 11/02/2024] predniSONE 25 mg Oral Once Followed by [START ON 11/03/2024] predniSONE 20 mg Oral Daily 0900 micafungin 50 mg Intravenous Q24H mycophenolate (CELLCEPT) IVPB 500 mg Intravenous BID pantoprazole 40 mg Oral DAILY 0600 tacrolimus 2 mg Oral BID Continuous: HYDROmorphone 6 mg/30 mL BLEACH BOILER PULLER norepinephrine Stopped (10/28/24 0637) sodium chloride 0.9 % 75 mL/hr (10/28/24 1033) sodium chloride 0.9 % PRN Meds: dextrose 10% in water, 12.5 g, Q15 Min PRN Or dextrose 10% in water, 25 g, Q15 Min PRN HYDROmorphone, 0.5 mg, Q4H PRN Or HYDROmorphone, 1 mg, Q4H PRN naloxone, 0.1 mg, Q5 Min PRN ondansetron, 4 mg, Q8H PRN sodium chloride 0.9 %, 20 mL/hr, Continuous PRN Recent Labs 10/28/24 0005 10/28/24 0413 10/28/24 1021 WBC 4.9 4.5 4.1 HGB 6.7* 7.3* 7.1* HCT 19.2* 21.0* 20.4* MCV 87.8 87.8 88.5 PLT 45* 38* 37* Recent Labs 10/27/24 0800 10/27/24 1713 10/28/24 0005 10/28/24 0413 AST 88* 62* 60* -- 44* ALT 149* 134* 134* -- 101* ALKPHOS 26* 27* 27* -- 26* BILITOT 1.3 1.7* 1.7* -- 2.3* ALBUMIN 3.0* 3.0* 2.9* 2.9* 2.9* 3.1* 3.1* 3.1* BILIDIRECT 0.93* 1.10* 1.17* -- 1.67* PROT 4.0* 4.1* 4.1* -- 4.5* Recent Labs 10/27/24 0816 10/27/24 1713 10/28/24 0413 INR 1.2* 1.1 1.1 PROTIME 16.2* 15.2* 14.6 Recent Labs 10/27/24 1713 10/28/24 0005 10/28/24 0413 NA 142 144 142 K 3.4* 3.4* 3.5 CL 109 112* 111* CO2 22 19* 22 BUN 61* 59* 58* CREATININE 2.42* 2.42* 2.24* CALCIUM 8.8 9.0 9.1 MG 2.4 2.2 2.2 PHOS 5.7* 5.3* 4.8* GLUCOSE 125* 118* 103* Recent Labs 10/27/24 0013 10/27/24 0800 10/27/24 1741 LACTATE 0.2* 0.4* 0.5 Imaging US Abdomen Limited Result Date: 10/27/2024 IMPRESSION: RIGHT UPPER QUADRANT 1. Small area of parenchymal heterogeneity in the liver transplantnear the falciform ligament fissure, possibly representing fat, small intraparenchymal hematoma, orhemostatic material. This can be reassessed on follow-up. The liver allograft otherwise appears normal. 2. Small volume of perihepatic free fluid. LIVER DOPPLER 1. Patent hepatic vasculature with normal directional flow. Waveforms within normal limits. Report Verified by: Alberto Rodriguez MD at 10/27/2024 10:38 AM EDT US Duplex [id number] Comp Result Date: 10/27/2024 IMPRESSION: RIGHT UPPER QUADRANT 1. Small area of parenchymal heterogeneity in the liver transplantnear the falciform ligament fissure, possibly representing fat, small intraparenchymal hematoma, orhemostatic material. This can be reassessed on follow-up. The liver allograft otherwise appears normal. 2. Small volume of perihepatic free fluid. LIVER DOPPLER 1. Patent hepatic vasculature with normal directional flow. Waveforms within normal limits. Report Verified by: Alberto Rodriguez MD at 10/27/2024 10:38 AM EDT US Renal Transplant Result Date: 10/27/2024 IMPRESSION: 1. Normal grayscale appearance of the renal transplant allograft. 2. Patent renal transplant vasculature and waveforms within normal limits. Report Verified by: Alberto Rodriguez MD at 10/27/2024 10:28 AM EDT X-ray Portable Chest Result Date: 10/27/2024 IMPRESSION: Endotracheal tube tip 7 cm above the sean. Consider advancement. Changed configuration of the PA catheter as detailed above, the tip projecting over the central mediastinum. Repositioning recommended. Bibasilar parenchymal opacities without significant change. No overt edema. Report Verified by: Chinedu Rodriges MD at 10/27/2024 9:22 AM EDT X-ray Abdomen AP view Result Date: 10/27/2024 FINDINGS/IMPRESSION: No unexpected retained radiopaque surgical instrument. Enteric suction catheter sidehole projects over the gastric antrum and tip projects over the peripyloric region. Right upper quadrant and mid abdominal surgical drains. Right lower quadrant ureteral stent. Embolization material and surgical clips in the left upper quadrant and mid abdomen. Surgical jerry project over the left hip and left chest wall. Findings communicated to Michela Szymanski RN via telephone by Ag Garcia MD on 10/27/2024 7:20 AM EDT. Approved by Ag Garcia MD on 10/27/2024 7:48 AM EDT I have personally reviewed the images and I agree with this report. Report Verified by: Lexx Hansen MD at 10/27/2024 7:49 AM EDT X-ray Portable Chest Result Date: 10/26/2024 IMPRESSION: Support devices as above. Report Verified by: Doron Castro MD at 10/26/2024 8:24 AMEDT X-ray Portable Chest Result Date: 10/25/2024 IMPRESSION: Streaky bibasilar parenchymal opacities, likely representing atelectasis. No focal consolidation. Approved by Jony Lakhani DO on 10/25/2024 10:22 PM EDT I have personally reviewed the images and I agree with this report. Report Verified by: Ben Sanderson DO at 10/25/2024 10:38 PM EDT Assessment: Blair Gilbert is a 39 y.o. 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 Plan: Liver transplant recipient ([facility]) [Z94.4] Neuro: - Multimodal pain control: dilaudid BLEACH BOILER PULLER, tylenol, robaxin. PRN dilaudid for breakthrough CV: New onset tachycardia, suspect vasopalegia vs hypovolemic. - Wean levo as tolerated - 1L albumin this morning - Keep MAC and arterial line - Monitor Qtc (prolonged earlier in admission) with repeat EKG today and tomorrow Pulm: - Extubated 10/27, on RA now - Continue IS FEN/GI s/p OLT: In the setting of new tachycardia and anemia, will continue to monitor with additional colloid and repeat CBC this morning. - Liver enzymes generally improving (though bili 2.3 from 1.7) - 1 L 5% albumin this am - POD 0 RUQ ultrasound: small areas of parenchymal heterogeneity in liver; patent hepatic vasculature - Repeat ultrasound POD 5 - Fixed rate NS @ 75 until further diet advancement - Diet: clears, will advance when less distended - Protonix 40 mg /Renal s/p DDKT: - Cr 2.24, baseline ~3.5 - POD 0 renal ultrasound: patent renal transplant vasculature and waveforms - Continue berkowitz Heme: Most recent hgb 7.3 g/dL from 6.7 following 1 unit of pRBCs overnight. - Repeat CBC this am - Transfuse to maintain hgb >7 g/dL - Trend TEG per protocol and transfuse as appropriate (significant OR blood loss 10/26) - Admission plt 56, most recently 38 Endo: - Insulin: NPH 10u BID, lispro 4u mealtime, HDSSI - Home Synthroid MSK: - PT/OT when able ID: - Transplant ID following - CMV R+: will need 3 months of valganciclovir - PJP prophylaxis: will need 6 months, ID planning for bactrim SS - Antifungal prophylaxis: micafungin - Perioperative antibiotics: ceftriaxone - Intraoperative cultures sent, NGTD IS: - Pred taper - Cellcept 500 mg BID - Tacrolimus 2 mg BID PPX: SQH, SCDs DISPO: SICU SHAY PLATA MD, MS4 [facility] 11:05 AM 10/28/2024 Cosigned by Lydia Sanchez MD at 10/29/2024 2:14 PM EDT Associated attestation - Lydia Sanchez MD - 10/29/2024 2:14 PM EDT This patient was seen and examined by the [facility]/Resident team on 10/28/24. I have discussed the patient's care with the team. Immunosuppression reviewed and discussed with multidisciplinary team. I have personally seen and examined this patient on 10/28/24. AF, tachycardiac this am 1U PRBC overnight Pain well controlled Liver allograft function excellent Cr normal Drains serosang NPO HSQ IS: tacro, mmf, prednisone Lydia Sanchez MD PhD Transplant Surgery * Lino Waldrop MD - 10/28/2024 6:16 AM EDT SURGICAL ICU PROGRESS NOTE 10/28/2024 6:17 AM Name: Blair Gilbert CSN: [id number] HPI: Blair Gilbert is a 39 y.o. male with a history HLD, RCC (s/p ablation 2022), chronic thrombocytopenia, hypothyroidism, allergies, chronic hypotension, ESLD secondary to EToH cirrhosis, c/b esophageal varices and hepatorenal syndrome, now s/p staged Simultaneous Liver Kidney Transplant. MELD 3.0: 20 at 10/28/2024 4:13 AM Calculated from: Serum Creatinine: 2.24 mg/dL at 10/28/2024 4:13 AM Serum Sodium: 142 mmol/L (Using max of 137 mmol/L) at 10/28/2024 4:13 AM Total Bilirubin: 2.3 mg/dL at 10/28/2024 4:13 AM Serum Albumin: 3.1 g/dL at 10/28/2024 4:13 AM INR(ratio): 1.1 at 10/28/2024 4:13 AM Age at listing (hypothetical): 39 years Sex: Male at 10/28/2024 4:13 AM OR Course (10/26/24): - Procedure: OLT, temp closure, bile duct in discontinuity - IVF: 9 L crystalloid - Blood Products: 11 pRBC, 11FFP, 2 platelet, 1 cryo - Vasopressors: levo, vaso, epi, methylene blue - EBL: 19L - UOP: 1.3L - Other: cell saver 6.1L - Last Hgb: 9.5 OR Course (10/27/24) - Procedure: Bile duct anastomosis, DDKT 24hr events: - Extubated - Pressors weaned - 1 unit pRBC for hgb drift Past Medical History: Diagnosis Date Alcoholic cirrhosis [...] Location: CARDIAC CATH LABS; Service:Cath; Laterality: N/A; LIVER-KIDNEY TRANSPLANT N/A 10/25/2024 Procedure: LIVER TRANSPLANT; Surgeon: Harvey Domínguez III, MD; Location: OR; Service: Transplant; Laterality: N/A; Home Medications Medication Sig Taking? Last Dose ciprofloxacin HCl (CIPRO) 500 MG tablet Take 1 tablet (500 mg total) by mouth daily. Yes 10/24/2024 FLUoxetine (PROZAC) 20 MG capsule Take 1 capsule (20 mg total) by mouth daily. Yes 10/25/2024 at 9:00 AM folic acid (FOLVITE) 1 MG tablet Take 1 tablet (1 mg total) by mouth daily. Yes 10/24/2024 levothyroxine (SYNTHROID) 75 MCG tablet Take 1 tablet (75 mcg total) by mouth every morning before breakfast. Yes 10/25/2024 at 9:00 AM loratadine (CLARITIN) 10 mg tablet Take 1 tablet (10 mg total) by mouth daily as needed for Allergies (itching). Yes 10/25/2024 at 9:00 AM midodrine (PROAMATINE) 10 MG tablet Take 1 tablet (10 mg total) by mouth 3 times a day. Yes 10/25/2024 at 9:00 AM mycophenolate (CELLCEPT) 250 mg capsule Take 2 capsules (500 mg total) by mouth 2 times a day. Yes pantoprazole (PROTONIX) 40 MG tablet Take 1 tablet (40 mg total) by mouth every morning before breakfast. Yes 10/25/2024 at 9:00 AM potassium chloride (KLOR-CON M20) 20 MEQ tablet Take 2 tablets (40 mEq total) by mouth daily. Yes 10/24/2024 sodium bicarbonate 650 MG tablet Take 2 tablets (1,300 mg total) by mouth 3 times a day. Yes 10/25/2024 at 9:00 AM tacrolimus (PROGRAF) 1 MG capsule Take 10 capsules (10 mg total) by mouth 2 times a day. Use as directed Yes thiamine HCl (VITAMIN B-1) 100 MG tablet Take 1 tablet (100 mg total) by mouth daily. Yes 10/24/2024t 9:00 PM ursodioL (ACTIGALL) 300 mg capsule Take 1 capsule (300 mg total) by mouth 2 times a day. Yes 10/25/2024 at 9:00 AM zinc sulfate (ZINCATE) 50 mg zinc (220 mg) capsule Take 1 capsule (220 mg total) by mouth daily. Yes 10/25/2024 at 9:00 PM acetaminophen (TYLENOL) 325 MG tablet Take 3 tablets (975 mg total) by mouth every 8 hours. alcohol swabs PadM Use as instructed. apixaban (ELIQUIS) 2.5 mg Tab Take 1 tablet (2.5 mg total) by mouth 2 times a day. aspirin 81 MG chewable tablet Chew 1 tablet (81 mg total) by mouth daily. atovaquone (MEPRON) 750 mg/5 mL suspension Take 10 mLs (1,500 mg total) by mouth daily for 30 doses. blood sugar diagnostic (GLUCOSE BLOOD) Str Use to test blood sugar up to 4 times a day. blood-glucose meter (TRUE METRIX GLUCOSE METER[place] [facility] [place] test blood sugar up to 4 times a day. DEXCOM G7 PROP WORKER Misc Use reader as directed. DEXCOM G7 SENSOR Radha Use 1 sensor as directed every 10 days. ergocalciferol (ERGOCALCIFEROL) 1,250 mcg (50,000 unit) capsule Take 1 capsule (50,000 Units total)by mouth once a week. famotidine (PEPCID) 20 MG tablet Take 1 tablet (20 mg total) by mouth 2 times a day. fluconazole (DIFLUCAN) 200 MG tablet Take 1 tablet (200 mg total) by mouth daily for 30 days. insulin aspart, niacinamide, (FIASP FLEXTOUCH U-100 INSULIN) 100 unit/mL (3 mL) InPn Administer insulin with meals per sliding scale: Blood glucose 150-199 mg/dL =2 units, Blood glucose 200-249 mg/dL=4 units, Blood glucose 250-299 mg/dL =7 units, Blood glucose 300-349 mg/dL =10 units, Blood glucose greater than 349 mg/dL = 12 units insulin NPH isoph U-100 human 100 unit/mL (3 mL) InPn Inject 5 Units subcutaneously in the morning and at bedtime. lancets (ACCU-CHEK SOFTCLIX LANCETS) [facility] [place] to test blood sugar up to 4 times a day. methocarbamoL (ROBAXIN) 500 MG tablet Take 1 tablet (500 mg total) by mouth 3 times a day. naloxone (NARCAN) 4 mg/actuation [place] Apply 1 spray in one nostril if needed. Call 911. May repeat dose in other nostril if no response in 3 minutes. pen needle, diabetic 32 gauge x 5/32 Ndle For use with insulin pen. Use as instructed. polyethylene glycol (GLYCOLAX) 17 gram/dose powder Mix one capful (17 grams) in 8 ounces of liquid and drink by mouth daily as needed (Constipation). predniSONE (DELTASONE) 5 MG tablet Take 4 tablets (20 mg total) by mouth daily. senna-docusate (SENNOSIDES-DOCUSATE SODIUM) 8.6-50 mg per tablet Take 1 tablet by mouth at bedtime as needed for Constipation. sulfamethoxazole-trimethoprim (BACTRIM) 400-80 mg per tablet Take 1 tablet by mouth daily. valGANciclovir (VALCYTE) 450 mg tablet Take 1 tablet (450 mg total) by mouth daily. Scheduled Meds: cefTRIAXone (ROCEPHIN) IVPB 2 g Intravenous Q12H eye ointment Both Eyes BID heparin 5,000 Units Subcutaneous 3 times per day methylPREDNISolone sod suc(PF) 125 mg Intravenous Once Followed by [START ON 10/29/2024] methylPREDNISolone sod suc(PF) 60 mg Intravenous Once Followed by [START ON 10/30/2024] methylPREDNISolone sod suc(PF) 50 mg Intravenous Once Followed by [START ON 10/31/2024] predniSONE 40 mg Oral Once Followed by [START ON 11/01/2024] predniSONE 30 mg Oral Once Followed by [START ON 11/02/2024] predniSONE 25 mg Oral Once Followed by [START ON 11/03/2024] predniSONE 20 mg Oral Daily 0900 micafungin 50 mg Intravenous Q24H mycophenolate (CELLCEPT) IVPB 500 mg Intravenous BID pantoprazole (PROTONIX) IV 40 mg Intravenous DAILY 0600 tacrolimus 2 mg Oral BID Continuous: HYDROmorphone 6 mg/30 mL BLEACH BOILER PULLER insulin regular in 0.9 % sodium chloride 2.5 Units/hr (10/27/24 1900) norepinephrine 4 mcg/min (10/27/24 2318) sodium chloride 0.45% (1/2 NS) Stopped (10/27/24 1301) sodium chloride 0.9 % Stopped (10/27/24 0252) sodium chloride 0.9 % 100 mL/hr (10/27/24 1900) sodium chloride 0.9 % sodium chloride 0.9 % 20 mL/hr (10/28/24 0205) vasopressin 0.03 Units/min (10/27/24 1000) PRN Meds: dextrose 10% in water OR dextrose 10% in water, glucose, HYDROmorphone OR HYDROmorphone, naloxone, ondansetron, sodium chloride 0.45% (1/2 NS), sodium chloride 0.9 % Allergies[1] Social History Tobacco Use Smoking status: Former Types: Cigarettes Smokeless tobacco: Current Substance Use Topics Alcohol use: Yes Comment: History of alcohol abuse, reports no use in 3 week- typically endorses use as 4 glasses ofwine a days History reviewed. No pertinent family history. REVIEW OF SYSTEMS: Review of Systems conducted with patient and pertinent positives are noted in HPI. CONSTITUTIONAL General: Appears well, non acute distress Temp: [97.8 ??F (36.6 ??C)-99.4 ??F (37.4 ??C)] 98.2 ??F (36.8 ??C) Heart Rate: [76-110] 101 Resp: [0-19] 15 BP: (91-151)/(31-94) 121/70 Arterial Line BP: (83-140)/(29-61) 121/61 FiO2: [26 %-100 %] 26 % HEENT Exam: NC/AT, pupils equal, no facial swelling A/P: - No acute issues RESPIRATORY Exam: Non labored breathing Ventilator Settings: Vent Mode: Spont PS/PEEP FiO2: [26 %-100 %] 26 % S RR: [0-16] 0 S VT: [550 mL] 550 mL Spont TV: [0 mL-1000 mL] 724 mL Inspiratory Time Set: [1 sec] 1 sec PIP: [4 cm H2O-39 cm H2O] 10 cm H2O Plateau Pressure (cm H2O): [7.6 cm H2O-16 cm H2O] 7.6 cm H2O Delta Pressure Support (cm H2O): [0 cm H2O-10 cm H2O] 5 cm H2O PEEP/CPAP: [0 cm H20-6 cm H20] 5 cm H20 O2 Device: Patient Vitals for the past 4 hrs: O2 Device 10/28/24 0400 None (Room air) Blood Gas Measurements pH: 7.37 (10/27/24 1440) PCO2: 35 (10/27/24 1440) PO2: 92 (10/27/24 1440) HCO3: (!) 21 (10/27/24 1440) Base Excess: (!) -4.6 (10/27/24 1440) SaO2: 98 (10/27/24 1440) Total RSBI: 11 (10/27/24 1140) Recent Labs 10/27/24 0800 10/27/24 1235 10/27/24 1440 PHART 7.36 7.35 7.37 PCO2 37 37 35 PO2ART 245* 182* 92 PPB2BSI 22 21* 21* BEART -4.2* -4.8* -4.6* A/P: # Acute respiratory insufficiency # Acute hypoxic respiratory insufficiency - Intubated post OR secondary to transfusion, no concerns for oxygenation during case - Extubated 10/27/24 - On RA this am - Continue IS, Pulm toilet, OOBAT - Wean O2 as able for SpO2 > 92% # Chronic Allergies - Resume home claritin CARDIOVASCULAR Exam: tachycardic, regular rhythm Troponin: No results found for: TROPONINI Cardiac data: 10/09/24 - Left ventricle: The cavity size is [...] at baseline or with provocation, shows no [id number] atrial level shunt. - Pulmonary arteries: Systolic [...] of stress attained. The study is non-diagnostic. A/P: - MAP goal > 65 # Shock, Hypovolemic - Given large resuscitation during OR - Pressor need levo, vaso, epi, methylene blue bolus immediately OR s/p reperfusion - Pre takeback 1- Off epi, methylene blue - Weaned to levo 3 this morning - MAP 65 on cuff # Chronic Hypotension Home meds: midodrine 10mg TID - Hold at this time # HLD - Not on statin NUTRITION A/P: - Diet: Clear liquid diet - No acute issues GASTROINTESTINAL Exam: Abdomen soft, ND, Dressing over incisions Recent Labs 10/27/24 0800 10/27/24 1713 10/28/24 0005 10/28/24 0413 ALKPHOS 26* 27* 27* -- 26* ALT 149* 134* 134* -- 101* AST 88* 62* 60* -- 44* BILITOT 1.3 1.7* 1.7* -- 2.3* ALBUMIN 3.0* 3.0* 2.9* 2.9* 2.9* 3.1* 3.1* 3.1* BILIDIRECT 0.93* 1.10* 1.17* -- 1.67* PROT 4.0* 4.1* 4.1* -- 4.5* A/P: # Cirrhosis # S/p OLT (piggyback), takeback 10/27 bile duct reconstruction - Pre-op MELD 32 - Bile completed 10/27/24 - NIA drain x2, empty q4hr - Trend LFTs, bilirubin - LFTs downtrending appropriately - Transplant ultrasound yesterday - no concerns # Chronic Ascites - Underwent paracentesis twice weekly pre-op - Hold home lasix, spironolactone - Albumin replacement 25% for 1L output - 0 replacement given - low output # GERD - Home pantoprazole 40mg daily, hold - IV pantoprazole while intubated,convert to PO today Last BM: 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 COUNSELOR Bowel regimen: Miralax today, hold senna til regular diet Nausea: Zofran PRN FLUID/ELECTROLYTES Recent Labs 10/27/24 1713 10/28/24 0005 10/28/24 0413 NA 142 144 142 K 3.4* 3.4* 3.5 CL 109 112* 111* CO2 22 19* 22 BUN 61* 59* 58* CREATININE 2.42* 2.42* 2.24* CALCIUM 8.8 9.0 9.1 MG 2.4 2.2 2.2 PHOS 5.7* 5.3* 4.8* GLUCOSE 125* 118* 103* Intake/Output Summary (Last 24 hours) at 10/28/2024 0617 Last data filed at 10/28/2024 0600 Gross per 24 hour Intake 5647.63 ml Output 4590 ml Net 1057.63 ml IV Fluids: HYDROmorphone 6 mg/30 mL BLEACH BOILER PULLER insulin regular in 0.9 % sodium chloride, Last Rate: 2.5 Units/hr (10/27/24 1900) norepinephrine, Last Rate: 4 mcg/min (10/27/24 2318) sodium chloride 0.45% (1/2 NS), Last Rate: Stopped (10/27/24 1301) sodium chloride 0.9 %, Last Rate: Stopped (10/27/24 0252) sodium chloride 0.9 %, Last Rate: 100 mL/hr (10/27/24 1900) sodium chloride 0.9 % sodium chloride 0.9 %, Last Rate: 20 mL/hr (10/28/24 0205) vasopressin, Last Rate: 0.03 Units/min (10/27/24 1000) A/P: - Goal UOP >0.5 cc/kg/hr - Strict I/Os - Manual Electrolyte Replacement Hypokalemia - Chronic - on PO K at baseline - Needs aggressive replacement - Needs K today RENAL/ Recent Labs 10/27/24 1713 10/28/24 0005 10/28/24 0413 BUN 61* 59* 58* CREATININE 2.42* 2.42* 2.24* A/P: # Hepatorenal Syndrome # S/p DDKT Baseline Cr 3.5 - Admission Cr 3.87, current 2.24 with downtrending BUN - Sodium bicarb 1300mg TID, hold - Labs per transplant protocol - US 10/27 with appropriate flows, no concerns - 3 day berkowitz - dc 10/30 - Makes urine at baseline - Has never required dialysis - Continue berkowitz SKIN/MUSCULOSKELETAL Exam: Warm, dry; no significant edema A/P: ADDY HEMATOLOGIC Labs: Recent Labs 10/27/24171210/28/24 0005 10/28/24 0413 WBC 4.9 4.9 4.5 HGB 7.4* 6.7* 7.3* HCT 21.4* 19.2* 21.0* MCV 87.6 87.8 87.8 PLT 47* 45* 38* No results for input(s): ANTIXALMWHEP in the last 72 hours. Recent Labs 10/27/24 0816 10/27/24171210/28/243 INR 1.2* 1.1 1.1 PROTIME 16.2* 15.2* 14.6 No results for input(s): TEGANGLE , TEGKTIME , KNYAXLQJ15 , TEGMAXAMPL , TEGRTIME , CBMZ in the last 72 hours. A/P: # Acute blood loss anemia - Massive OR blood loss/transfusion 10/26/24: EBL 17L, 10 pRBC, 10FFP, 2 platelet, 4 cryo - Hgb stable prior to OR takeback - 1 unit pRBC overnight for drift, okay response 6.7(7.3) - Repeat 2pm cbc - Trend TEG, normalize with product - none given - If hypotensive consider product resuscitation # Coagulopathy - Received 5 cryo, 1FFP. 1 platelet prior to OR takeback - Trend teg - correct as needed # Chronic Thrombocytopenia - Admission platelet 56 - Monitor with CBC per protocol - Small concern for CHONG as he was given 1 platelet and platelets downtrended Transfusion parameters: -Transfuse pRBC for hgb < 7 -Transfuse FFP for R time > 9 or INR > 1.7 and bleeding -Transfuse Cryoprecipitate for MA CFF < 15, or low fibrinogen -Transfuse platelets for MA < 55 - Give TXA for LY30 > 3% ENDOCRINE Glucose range: Lab 10/28/24 0455 10/28/24 0413 10/28/24 0404 10/28/24 0300 10/28/24 0232 10/28/24 0214 10/28/24 0203 10/28/24 0005 10/28/24 0003 10/27/24 2203 10/27/24 1800 10/27/24 1713 10/27/24 0905 10/27/24 0800 10/27/24 0121 10/27/24 0013 10/26/24 1658 10/26/24 1642 10/26/24 1206 10/26/24 1048 10/26/24 0612 10/26/24 0610 10/26/24 0514 10/26/24 0424 10/26/24 0331 10/26/24 0140 10/26/24 0039 10/25/24 2340 POC GLU MONITORING DEVICE 104* -- 103* 106* 109* 115* 101* -- 122* 127* < > -- < > -- < > -- < > -- < > -- < > -- -- -- -- -- -- -- POCGLUART -- -- -- -- -- -- -- -- -- -- -- -- -- -- -- -- -- -- -- -- -- -- 183* 185* 153* 116* 116* 101* GLUCOSE -- 103* -- -- -- -- -- 118* -- -- -- 125* -- 111* -- 126* -- 127* -- 253* -- 210* -- -- -- -- -- -- < > = values in this interval not displayed. Insulin Orders Dose Frequency Start End insulin (HumuLIN R) infusion - TITRATABLE NURSING PROTOCOL (HYPERGLYCEMIA) 0-28 Units/hr Continuous10/25/2024 10/26/2024 Admin Instructions: FOR O.R. USE only. Titrate in O.R. for blood glucose management HIGH ALERT MEDICATION Route: Intravenous A/P: # Stress induced hyperglycemia Home meds: None Last A1c: 3.7 - Insulin gtt on/off - 25 units insulin last 24 hours - Today NPH 10/, 4 units lispro with meals,HDSSI # Hypothyroidism - Home levothyroxine 75 mcg daily, resume today INFECTIOUS DISEASE Micro data: - Intra-op Cultures: - Surgical swab from abdomen: NGTD - Urine culture: NGTD - Anaerobic culture: NGTD - Fungus culture: NGTD - Cultures from kidney with stain: NGTD - Fungus kidney: NGTD - Anaerobic Kidney: NGTD Current Anti-Infectives Dose Frequency Start End AMPicillin 1 g in sodium chloride 0.9% 100 mL IVPB ([id number]) (Completed) 1 g Every 6 hours scheduled 10/26/2024 10/28/2024 Admin Instructions: Dosage may need to be adjusted for renal dysfunction. Full dose is 1g IV q6h Use [id number] Adapter - Mix Thoroughly Before Administration Notes to Pharmacy: On order processing clerk estimated creatinine clearance is 35.9 mL/min (A) (based on SCr of 3.87 mg/dL (H)). Route: Intravenous Linked Group 1: Placed in And Linked Group cefTRIAXone (ROCEPHIN) 2 g in sodium chloride 0.9% 20 mL IV Push 2 g Every 12 hours 10/26/2024 10/28/2024 Admin Instructions: Give 24 hours after pre-op dose. ADMINISTER IV PUSH. Infuse over 5 minutes. Draw up 20 mL Sodium Chloride 0.9% into empty syringe. Inject 20 mL into vial of Ceftriaxone. Shake well. Withdraw volume into syringe and administer immediately. Route: Intravenous Linked Group 1: Placed in And Linked Group micafungin (MYCAMINE) 50 mg in sodium chloride 0.9 % 100 mL [id number] IVPB 50 mg Every 24 hours 10/27/2024 -- Admin Instructions: PROTECT FROM LIGHT FLUSH LINE w/NSS PRIOR TO ADMINISTRATION Use [id number] Adapter - Mix Thoroughly Before Administration Route: Intravenous A/P: # Leukocytosis Likely reactive in s/o surgery - Continue perioperative Abx, ampicillin, micafungin (2/2 QTC, see ID note from 10/27 for plan. - Monitor for clinical s/s of infection # Immunosuppression - pred taper, cellcept, Thymo, tac today NEUROLOGIC Exam: Follows commands in all four extremities A/P: # Agitation - ADDY # Analgesia - MMPC - tylenol, po robaxin, dPCA PSYCHIATRIC Exam: Mood/affect appropriate Barth Agitation Sedation Scale: +1 Overall CAM-ICU : No Delirium A/P: - ADDY # Mood Disorder - prozac 20 daily, resume today Sleep: ADDY Delirium: ADDY CHECKLIST Patient Lines/Drains/Airways Status Active Epidural Line / PICC Line / PIV Line / ART Line / Line / CVC Line Name Placement date Placement time Site Days Peripheral IV 10/26/24 Anterior;Left Forearm 10/26/24 0609 Forearm 2 Arterial Line 10/25/24 Right Radial 10/25/24 2245 Radial 2 Introducer 10/25/24 Internal jugular Right 10/25/24 2355 Internal jugular 2 Central Line? Yes - Reason: Hemodynamic instability R IJ Mac Arterial Line? R radial Dalia Urinary Catheter? Berkowitz - Reason: Adequate I/O DVT Prophylaxis: Subcutaneous Heparin GI Prophylaxis: PPI PT/OT: Engage today Activity: OOB today DISPOSITION Remain in SICU JOHN MORENO MD 10/28/2024 6:17 AM ICU ATTENDING PROGRESS NOTE: I have examined Blair Gilbert, reviewed the events of the previous 24 hours, reviewed, confirmed andamended the resident's data, history and physical exam as needed. The case has been discussed with the Transplant team. I note the following in my assessment and will implement this plan of coordinated critical care management as follows: This patient was seen by the SICU resident team, nurses, pharmacist, and respiratory therapist. I have personally seen, examined, and discussed this patient with the critical care team on 10/28/2024. My assessment is noted below, and the multidisciplinary recommendations have been discussed with theTransplant team. Blair Gilbert remains in the ICU to address deficits in multiple systems. Each system was discussed on rounds and the details are listed in the resident note above. Adjustments to the note were made while rounds were performed to include changes agreed upon by the multidisciplinary team. My changes were added to the resident note. My assessment reveals: 39 year old male with esld and renal failure. Presents for staged OLT and DDKT. PMH notable for Hypothyroidism On 10/26 underwent OLT On 10/27 underwent DDKT and bile duct reconstruction and closure Signficiant resuscitation after first case. Returned from second case off all pressors except for vaso. Kidney functioning. HEENT: No Acute Issues RESPIRATORY: Hypoxia P:F: Extubated yesterday Doing well Appears slightly more uncomfortable today CARDIOVASCULAR: Shock, Unspecified Likely combination of Hypovolemia and liver dysfunction Remains off pressors Required transfusions overnight NUTRITION: No acute issues Hold on PO diet GASTROINTESTINAL: OLT complete Duct anastomosis complete Await US Drain output decreased Abdomen more distended FLUIDS / ELECTROLYTES: No acute issues Manual replacement RENAL: Renal failure, chronic S/p DDKT Follow urine output Ultrasound pending Fluid replacements per txp protocol SKIN/MUSCULOSKELETAL: ADDY HEMATOLOGIC: Acute post hemorrhagic anemia Transfused overnight Not a full response Recheck today Primary service concerned that they will need to re-explore R time increasesd Ma increased Would recommend giving both PLT and FFP ENDOCRINE: Hyperglycemia Ssi coverage with NPH Hypothyroidism Restart synthroid when taking PO INFECTIOUS DISEASE: No acute issues Prophylaxis per primary NEUROLOGIC: No acute issues PSYCHIATRIC, PAIN, SEDATION: Pain Management INJURY / DISEASE SPECIFIC NEEDS: No acute issues ACTIVE LINES; Patient Lines/Drains/Airways Status Active Epidural Line / PICC Line / PIV Line / ART Line / Line / CVC Line Name Placement date Placement time Site Days Peripheral IV 10/26/24 Anterior;Left Forearm 10/26/24 0609 Forearm 2 Arterial Line 10/25/24 Right Radial 10/25/24 2245 Radial 2 Introducer 10/25/24 Internal jugular Right 10/25/24 2355 Internal jugular 2 Central Line? Yes - Reason: Hemodynamic monitoring and Device introducer ACTIVE /DRAINS: Urinary Catheter? Berkowitz - Reason: Adequate I/O DVT Prophylaxis: Subcutaneous Heparin GI Prophylaxis: PPI DISPOSITION: Remain in ICU Total critical care time spent caring for this patient over the past 24 hours, including direct patient contact, management of life support systems, review of data (i.e.: imaging and lab), discussionwith team members, and excluding time spent on procedures: 34 minutes Lino Waldrop MD 10/28/2024 7:34 PM [1] Allergies Allergen Reactions Adhesive Itching and Rash Tegaderm adhesive on Ivs, pt states its tolerable Duloxetine Other (See Comments) Became Manic * Farhana Velasquez, RXT - 10/27/2024 1:38 PM EDT Caprini Risk Score for Liver Transplant Recipients Caprini risk assessment model for venous thromboembolism adapted for liver transplant recipients Total Points Select age (select one): [] 0 - 40 years old (0 points) [x] 41 - 60 years old (1 point) 1 [] 61 - 74 years old (2 points) [] 75 years old or older (3 points) Select if patient is admitted for a liver transplant surgery (3 points) [x] 2. Admitted for a liver transplant (includes 2 points for planned procedure greater than 45 minutes, and 1 point for major surgery greater than 2 hours) 3 Each of the following criteria that apply now or within the past month, receives 1 point (select all that apply): [] 3. Within the past month, the patient had major surgery under anesthesia that lasted for MORE than 45 minutes (prior to transplant surgery) [] 4. Within the past month, has the patient had varicose veins (NOT spider veins) [] 5. Within the past month, has the patient had swollen legs including pitting edema of any level,loss of definition of the bony prominences, obscured foot veins, or indentation of the leg when a stocking is removed [] 6. Within the past month, has the patient had an episode of myocardial infarction [] 7. Within the past month, has the patient had serious infection requiring hospitalization []8. History of inflammatory bowel disease (including Crohn's or ulcerative colitis) [x] 9. Patient with BMI above 25 kg/m2 1 [] 10. Patient has history of congestive heart failure This risk factor include patients who have had an episode within the last month. Additionally, patients who are currently being treated with medication for CHF are included, even if they had not had an acute episode within the past month. An ejection fraction alone should not be used when determining whether a patient meets this criteria 0 11. Enter number of lung diseases including but not limited to: emphysema, COPD, any interstitiallung disease, patients with abnormal pulmonary function tests, sarcoidosis, pulmonary fibrosis, pulmonary hypertension, and bronchiectasis. Patients who present with more than 1 diagnosis meeting the criteria for lung disease receive 1 point for each diagnosis. Each of these other risk factors that apply now or within the past month receives 1 point (select all that apply): [] 12. BMI above 40 kg/m2 [] 13. Smoking within the last month (smoking is defined as the inhalation of anything that davis [eg, tobacco, marijuana], or vaping) [] 14. Diabetes requiring insulin (does not include oral or parenteral medications used for the treatment of diabetes) [] 15. Chemotherapy (includes chemotherapy treatments used for any medical condition (eg, methotrexate for rheumatoid arthritis, hydroxyurea for essential thrombocytosis) [] 16. History of HIV [x] 17. Blood transfusion(s) (1 point for 1 or more transfusion) 1 [] 18. Restricted mobility defined as unable to ambulate continuously for 30 feet for less than 72 hours For WOMEN only, add 1 point for each statement that applies (select all that apply): [] 19. Patient currently uses control or hormone replacement therapy including estrogen contraceptives of any type, or estrogen-like drugs (tamoxifen, anastrozole, letrozole). Does not include testosterone replacement therapy or progesterone. [] 20. or had a baby within the last month [] 21. History of unexplained stillborn infant, recurrent spontaneous (3 or more), premature with toxemia or growth restricted Each of the following criteria receives 2 points (select all that apply): 1 22. Enter number of current or past malignancies (excluding skin cancer). Every incidence of cancer is considered separately and points are additive. Patients who present with more than 1 diagnosismeeting the criteria for current or past malignancies receive 2 points for each diagnosis. 2 [] 23. Within the past month, has the patient had a nonremovable cast or mold that prevents leg movement. Also includes patients using crutches who are non- weightbearing on one leg. Does not include the use of an assistive device for stability. [x] 24. Within the past month, has the patient had a central line, PICC, or Port? 2 [] 25. Impaired mobility defined as unable to ambulate continuously for 30 feet for more than 72 hours Each of the following criteria receives 3 points (select all that apply): 0 26. Enter number of episodes of blood clots (includes: deep vein thrombosis (DVT), pulmonary embolism (PE); or superficial vein thrombosis (SVT). Each episode is a separate event for scoring. [] 27. Family history of blood clots (includes first-, second-, and third-degree relatives) 0 28. Enter number of personal or family history of positive blood test indicating an increased risk of blood clotting (eg, genetic or acquired thrombophilia) Each of the following criteria that apply now or within the past month receives 5 points (select all that apply): [] 29. Within the past month, the patient had a broken hip, pelvis, or leg (fractures requiring surgical repair receive 5 points for the fracture and additional points for the surgery depending on time [eg, >45 minutes] and type [eg, hip replacement], as well as points for any resulting restricted mobility (eg, cast placed) 0 30. Enter the number of elective hip or knee joint replacements (total or partial; points assessed for each surgical procedure. [] 31. Within the past month, the patient had a serious trauma (eg, multiple broken bones due to a fall or car accident) [] 32. Within the past month, the patient had a spinal cord injury resulting in paralysis [] 33. Within the past month, the patient had a stroke Final Score 10 * We use the Caprini Risk Assessment model for general, abdominal-pelvic, bariatric, vascular, and plastic and reconstructive surgery Leida M, Prasad N, Elizabeth ES, et al. Completion of the Updated Caprini Risk Assessment Model (2013 Version). Clin Appl Thromb Hemost 2019; 25:1. Estimated baseline risk (EBR) of VTE and Chemoprophylaxis Duration by risk category Points Risk Category EBR Chemoprophylaxis Duration 0 - 4 Low/Medium < 0.7% During hospitalization 5 - 8 High 1.5 - 4% 10 days total* >= 9 Very High 10.7% 30 days total* *Including duration during hospitalization Date of liver transplant: 10/26/24 Most recent operative procedure: 10/27/2024 Crcl: Estimated Creatinine Clearance: 54.7 mL/min (A) (based on SCr of 2.54 mg/dL (H)). Based on the Caprini Risk Score of 10 and [facility] transplant protocol, I recommend discharging on heparin 5,000 units subcutaneously q8h (facility) or Eliquis 2.5 mg PO BID (home) for 30 days total. Endof chemoprophylaxis: 11/25/24. Farhana Velasquez PharmD Candidate, 2025 Cosigned by Hillary Fernandes PharmD at 10/28/2024 11:50 AM EDT Associated attestation - Hillary Fernandes PharmD - 10/28/2024 11:50 AM EDT I agree with the plan of care as outlined below by the resident/fellow, and will oversee and assistin the transplant-related pharmaceutical care of the patient as needed. Hillary Fernandes PharmD, BCTXP Solid Organ Transplant Clinical Specialist Contact via [employer] Secure Chat [employer]. [phone] * Chinedu Almeida SHIPS OR BARGES LOADER - 10/27/2024 1:10 PM EDT Patient extubated to 2 LPM HFNC on 10/27/2024 at 1310. * Chinedu Almeida RRT - 10/27/2024 12:36 PM EDT RESPIRATORY THERAPY MECHANICAL VENTILATION WEANING PROTOCOL NOTE Blair Gilbert is a 39 y.o. y.o. male 1985 PRE-TRIAL PATIENT ASSESSMENT COMPLETED AT 1141. Patient Criteria for Spontaneous Breathing Trial (SBT) PARAMETER CRITERIA FOR WEANING MEETS CRITERIA FiO2 < 50% Yes PEEP < 8 Yes Total RR < 30 bpm Yes PCV Mode No Yes Vt (Spontaneous) > 200 mL Yes ABG (pH and BE) Ph >7.32 and BE>-6 Yes MD Order No SBT No Yes [place] Coma Scale > 8 Yes Lab Results Component Value Date PHART 7.36 10/27/2024 PCO2 37 10/27/2024 PO2ART 245 (H) 10/27/2024 [id number] 22 10/27/2024 BEART -4.2 (L) 10/27/2024 [id number] 96.5 10/27/2024 [id number] 100 10/27/2024 Based on this SBT assessment and ICU Ventilator Weaning Protocol, this patient is being placed on Spontaneous Breathing Trial (SBT) at this time. SBT intiated at 1141 Ventilator Settings: CPAP - 5 cmH2O, PS - 0 cmH2O RR is less than or equal to 30, HR < 140 or <20% change from baseline, Systolic BP < 180 or > 90, SaO2 > 90% and patient is in no apparent distress; therefore patient is being left on SBT for up to 30 minutes. SBT concluded at 1235 Weaning Parameters/VS's at conclusion of SBT: Ve 8.7 L RR: 10 b/m VT: 1340 mL (average VT = VE/RR) RSBI: 18 (RR/VT in liters) SPO2: 100 % Patient did tolerate SBT for full 30 minutes with acceptable weaning parameters and vital signs andshowed no signs of distress. * Kenyetta Hartman - 10/27/2024 11:40 AM EDT Liver Transplant Surgery Progress Note Name: Blair Gilbert CSN: [id number] Date: 10/27/2024 11:40 AM OR Date: 10/25/2024 - 10/27/2024 Subjective: * Day of Surgery * Remains intubated in SICU Sedated but appropriately nods to questions No acute distress Objective: BP 100/48 Pulse 89 Temp 99 ??F (37.2 ??C) ([place]) Resp 9 Ht 6' 4 (1.93 m) Wt (!) 270 lb (122.5 kg) SpO2 100% BMI 32.87 kg/m?? Physical Exam: Constitutional: No acute distress, cooperative, lying in bed comfortably. HEENT: Moist mucous membranes. Respiratory: Intubated, equal chest rise bilaterally Cardiovascular: Regular rate and rhythm. Abdomen: Wound with dressing intact, bilateral nia drains with serosanguinous fluid. Abdomen is soft, mildly-distended, without tenderness. No rebound or guarding. /Anorectal: Berkowitz in place Extremities: No gross deformities, acyanotic, mildly jaundiced Neuro: Sedated, alerts to voice, nods appropriately to questions Medications Scheduled Meds: acetaminophen 15 mg/kg Intravenous Q8H cefTRIAXone (ROCEPHIN) IVPB 2 g Intravenous Q12H And AMPicillin IVPB 1 g Intravenous 4 times per day eye ointment Both Eyes BID heparin 5,000 Units Subcutaneous 3 times per day isavuconazonium sulfate (CRESEMBA) 372 mg in sodium chloride 0.9 % 250 mL IVPB 372 mg Intravenous Q8H magnesium sulfate 4 g Intravenous Once [START ON 10/28/2024] methylPREDNISolone sod suc(PF) 125 mg Intravenous Once Followed by [START ON 10/29/2024] methylPREDNISolone sod suc(PF) 60 mg Intravenous Once Followed by [START ON 10/30/2024] methylPREDNISolone sod suc(PF) 50 mg Intravenous Once Followed by [START ON 10/31/2024] predniSONE 40 mg Oral Once Followed by [START ON 11/01/2024] predniSONE 30 mg Oral Once Followed by [START ON 11/02/2024] predniSONE 25 mg Oral Once Followed by [START ON 11/03/2024] predniSONE 20 mg Oral Daily 0900 mycophenolate (CELLCEPT) IVPB 500 mg Intravenous BID pantoprazole (PROTONIX) IV 40 mg Intravenous DAILY 0600 potassium chloride (KCl) 10 mEq Intravenous Q1HRS Continuous: fentanyl (SUBLIMAZE) IV infusion 150 mcg/hr (10/27/24 1000) insulin regular in 0.9 % sodium chloride 2.5 Units/hr (10/27/24 1001) norepinephrine 3 mcg/min (10/27/24 0847) propofol 10 mcg/kg/min (10/27/24 1000) sodium chloride 0.45% (1/2 NS) 231 mL/hr (10/27/24 1057) sodium chloride 0.9 % Stopped (10/27/24 0252) sodium chloride 0.9 % Stopped (10/27/24 0252) sodium chloride 0.9 % Stopped (10/27/24 0252) sodium chloride 0.9 % Stopped (10/27/24 0901) vasopressin 0.03 Units/min (10/27/24 1000) PRN Meds: dextrose 10% in water, 12.5 g, Q15 Min PRN Or dextrose 10% in water, 25 g, Q15 Min PRN fentaNYL, 50 mcg, Q5 Min PRN glucose, 12 g, Q15 Min PRN HYDROmorphone, 0.5 mg, Q4H PRN Or HYDROmorphone, 1 mg, Q4H PRN sodium chloride 0.45% (1/2 NS), 0-999 mL/hr, Continuous PRN Recent Labs 10/26/24 1048 10/26/24164110/27/24 0013 WBC 17.3* 10.0 5.0 HGB 12.8* 10.5* 8.5* HCT 37.2* 30.2* 23.9* MCV 88.3 87.7 88.5 PLT 109* 48* 35* Recent Labs 10/26/24164110/27/24 0013 10/27/24 0800 AST 374* 157* 88* ALT 458* 261* 149* ALKPHOS 39 26* 26* BILITOT 2.3* 1.6* 1.3 ALBUMIN 3.0* 3.0* 2.8* 2.8* 3.0* 3.0* BILIDIRECT 1.85* 1.17* 0.93* PROT 3.8* 3.8* 4.0* Recent Labs 10/26/24164110/27/24 0013 10/27/24 0816 INR 1.7* 1.5* 1.2* PROTIME 20.3* 18.6* 16.2* Recent Labs 10/26/24164110/27/24 0013 10/27/24 0800 NA 142 141 142 K 3.3* 3.2* 3.0* CL 109 109 109 CO2 23 21 21 BUN 63* 64* 59* CREATININE 2.85* 2.58* 2.54* CALCIUM 8.9 8.9 9.1 MG 2.0 1.8 1.8 PHOS 4.4 5.3* 5.5* GLUCOSE 127* 126* 111* Recent Labs 10/26/24164110/27/24 0013 10/27/24 0800 LACTATE 0.3* 0.2* 0.4* Imaging US Abdomen Limited Result Date: 10/27/2024 IMPRESSION: RIGHT UPPER QUADRANT 1. Small area of parenchymal heterogeneity in the liver transplantnear the falciform ligament fissure, possibly representing fat, small intraparenchymal hematoma, orhemostatic material. This can be reassessed on follow-up. The liver allograft otherwise appears normal. 2. Small volume of perihepatic free fluid. LIVER DOPPLER 1. Patent hepatic vasculature with normal directional flow. Waveforms within normal limits. Report Verified by: Alberto Rodriguez MD at 10/27/2024 10:38 AM EDT US Duplex Lha-Ynh-Ueacpwh Comp Result Date: 10/27/2024 IMPRESSION: RIGHT UPPER QUADRANT 1. Small area of parenchymal heterogeneity in the liver transplantnear the falciform ligament fissure, possibly representing fat, small intraparenchymal hematoma, orhemostatic material. This can be reassessed on follow-up. The liver allograft otherwise appears normal. 2. Small volume of perihepatic free fluid. LIVER DOPPLER 1. Patent hepatic vasculature with normal directional flow. Waveforms within normal limits. Report Verified by: Alberto Rodriguez MD at 10/27/2024 10:38 AM EDT US Renal Transplant Result Date: 10/27/2024 IMPRESSION: 1. Normal grayscale appearance of the renal transplant allograft. 2. Patent renal transplant vasculature and waveforms within normal limits. Report Verified by: Alberto Rodriguez MD at 10/27/2024 10:28 AM EDT X-ray Portable Chest Result Date: 10/27/2024 IMPRESSION: Endotracheal tube tip 7 cm above the sean. Consider advancement. Changed configuration of the PA catheter as detailed above, the tip projecting over the central mediastinum. Repositioning recommended. Bibasilar parenchymal opacities without significant change. No overt edema. Report Verified by: Chinedu Rodriges MD at 10/27/2024 9:22 AM EDT X-ray Abdomen AP view Result Date: 10/27/2024 FINDINGS/IMPRESSION: No unexpected retained radiopaque surgical instrument. Enteric suction catheter sidehole projects over the gastric antrum and tip projects over the peripyloric region. Right upper quadrant and mid abdominal surgical drains. Right lower quadrant ureteral stent. Embolization material and surgical clips in the left upper quadrant and mid abdomen. Surgical jerry project over the left hip and left chest wall. Findings communicated to Michela Szymanski RN via telephone by Ag Garcia MD on 10/27/2024 7:20 AM EDT. Approved by Ag Garcia MD on 10/27/2024 7:48 AM EDT I have personally reviewed the images and I agree with this report. Report Verified by: Lexx Hansen MD at 10/27/2024 7:49 AM EDT X-ray Portable Chest Result Date: 10/26/2024 IMPRESSION: Support devices as above. Report Verified by: Doron Castro MD at 10/26/2024 8:24 AMEDT X-ray Portable Chest Result Date: 10/25/2024 IMPRESSION: Streaky bibasilar parenchymal opacities, likely representing atelectasis. No focal consolidation. Approved by Jony Lakhani DO on 10/25/2024 10:22 PM EDT I have personally reviewed the images and I agree with this report. Report Verified by: Ben Sanderson DO at 10/25/2024 10:38 PM EDT Assessment: Blair Gilbert is a 39 y.o. 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 Problem List[1] Plan: Liver transplant recipient ([facility]) [Z94.4] Neuro: - Propofol/fentanyl CV: - Wean levo/vaso per SICU nursing protocol Pulm: - Intubated, ventilatory management per SICU - Extubate when able - Most recent settings: Vent Mode: Spont PS/PEEP FiO2: [26 %-100 %] 26 % S RR: [0-16] 0 S VT: [500 mL-550 mL] 550 mL PEEP/CPAP: [0 cm H20-6 cm H20] 5 cm H20 FEN/GI s/p OLT: - POD 0 RUQ ultrasound: small areas of parenchymal heterogeneity in liver; patent hepatic vasculature - Replete electrolytes PRN - Diet: NPO - IV Protonix while intubated /Renal s/p DDKT: - Cr 2.54, baseline ~3.5 - POD 0 renal ultrasound: patent renal transplant vasculature and waveforms - Continue berkowitz - Renal fluid replacement for urine output Heme: - Most recent hgb 8.5 g/dL - Transfuse to maintain hgb >7 g/dL - Trend TEG per protocol and transfuse as appropriate (significant OR blood loss 10/26) - Admission plt 56, most recently 35 Endo: - Insulin ggt - Home Synthroid when able MSK: - PT/OT when able ID: - Transplant ID following - Low grade fever, leukocytosis - blood cultures if febrile - Prophylaxis: start micafungin, stop isavuconazole - Perioperative ampicillin, ceftriaxone - Intraoperative cultures sent, NGTD IS: - Pred taper - Cellcept 500 mg BID - Tacrolimus initiation on POD 2 PPX: SQH, SCDs DISPO: SICU KENYETTA HARTMAN, MS4 [facility] 11:40 AM 10/27/2024 [1] Patient Active Problem List Diagnosis Decompensated cirrhosis ([facility]) Acute kidney injury superimposed on [place] [place] Alcohol use disorder Metabolic encephalopathy Hypertension Other hyperlipidemia Thrombocytopenia ([facility] Renal mass, left Abdominal pain Hypokalemia CKD (chronic kidney disease) stage 4, GFR 15-29 ml/min ([facility] [place] Metabolic acidosis with normal anion gap and bicarbonate losses GERD (gastroesophageal reflux disease) Hypothyroidism Itching Anemia BRBPR (bright red blood per rectum) SBP (spontaneous bacterial peritonitis) ([facility] [place]) C Diff Diarrhea C. difficile diarrhea Neck pain with history of cervical spinal surgery Cosigned by Harvey Domínguez III, MD at 10/30/2024 10:46 AM EDT Associated attestation - Harvey Domínguez III, MD - 10/30/2024 10:46 AM EDT I saw and evaluated the patient on 10/27/24, and discussed with the SAWYER/resident team. I agree with the SAWYER/resident???s findings and plan as documented in the SAWYER/resident???s note. Immunosuppression reviewed and discussed with multidisciplinary team. --- Diandra Domínguez III, MD Transplant Surgery (cell) * Chinedu Almeida, SHIPS OR BARGES LOADER - 10/27/2024 11:14 AM EDT Placed on SBT at this time. * Chinedu Almeida RRT - 10/27/2024 10:31 AM EDT ECG performed on patient Blair Gilbert in SICU-28/USIC-28. Test transmitted and paper copy placed inpatient's chart. * Chinedu Almeiad RRT - 10/27/2024 7:45 AM EDT Patient Blair Gilbert placed on Transport Vent at current ordered settings and transported to to SICU from OR. After transport complete, patient returned to SICU-28/USIC-28 and placed back on ICU ventat current ordered settings. Patient tolerated transport well. * Lino Waldrop MD - 10/27/2024 7:14 AM EDT SURGICAL ICU PROGRESS NOTE 10/27/2024 7:16 AM Name: Blair Gilbert CSN: [id number] HPI: Blair Gilbert is a 39 y.o. male with a history HLD, RCC (s/p ablation 2022), chronic thrombocytopenia, hypothyroidism, allergies, chronic hypotension, ESLD secondary to EToH cirrhosis, c/b esophageal varices and hepatorenal syndrome, now s/p staged Simultaneous Liver Kidney Transplant. MELD 3.0: 22 at 10/27/2024 12:13 AM Calculated from: Serum Creatinine: 2.58 mg/dL at 10/27/2024 12:13 AM Serum Sodium: 141 mmol/L (Using max of 137 mmol/L) at 10/27/2024 12:13 AM Total Bilirubin: 1.6 mg/dL at 10/27/2024 12:13 AM Serum Albumin: 2.8 g/dL at 10/27/2024 12:13 AM INR(ratio): 1.5 at 10/27/2024 12:13 AM Age at listing (hypothetical): 39 years Sex: Male at 10/27/2024 12:13 AM OR Course (10/26/24): - Procedure: OLT, planned for staged DDKT tonight vs tomorrow - IVF: 9 L crystalloid - Blood Products: 11 pRBC, 11FFP, 2 platelet, 1 cryo - Vasopressors: levo, vaso, epi, methylene blue - EBL: 19L - UOP: 1.3L - Other: cell saver 6.1L - Last Hgb: 9.5 OR Course (10/27/24) - Procedure: - IVF: - Blood product: - Vasopressor: - EBL: - UOP: - Other: - Last Hgb: Past Medical History: Diagnosis Date Alcoholic cirrhosis [...] Location: CARDIAC CATH LABS; Service:Cath; Laterality: N/A; Home Medications Medication Sig Taking? Last Dose ciprofloxacin HCl (CIPRO) 500 MG tablet Take 1 tablet (500 mg total) by mouth daily. Yes 10/24/2024 FLUoxetine (PROZAC) 20 MG capsule Take 1 capsule (20 mg total) by mouth daily. Yes 10/25/2024 at 9:00 AM folic acid (FOLVITE) 1 MG tablet Take 1 tablet (1 mg total) by mouth daily. Yes 10/24/2024 levothyroxine (SYNTHROID) 75 MCG tablet Take 1 tablet (75 mcg total) by mouth every morning before breakfast. Yes 10/25/2024 at 9:00 AM loratadine (CLARITIN) 10 mg tablet Take 1 tablet (10 mg total) by mouth daily as needed for Allergies (itching). Yes 10/25/2024 at 9:00 AM midodrine (PROAMATINE) 10 MG tablet Take 1 tablet (10 mg total) by mouth 3 times a day. Yes 10/25/2024 at 9:00 AM pantoprazole (PROTONIX) 40 MG tablet Take 1 tablet (40 mg total) by mouth every morning before breakfast. Yes 10/25/2024 at 9:00 AM potassium chloride (KLOR-CON M20) 20 MEQ tablet Take 2 tablets (40 mEq total) by mouth daily. Yes 10/24/2024 sodium bicarbonate 650 MG tablet Take 2 tablets (1,300 mg total) by mouth 3 times a day. Yes 10/25/2024 at 9:00 AM thiamine HCl (VITAMIN B-1) 100 MG tablet Take 1 tablet (100 mg total) by mouth daily. Yes 10/24/2024t 9:00 PM ursodioL (ACTIGALL) 300 mg capsule Take 1 capsule (300 mg total) by mouth 2 times a day. Yes 10/25/2024 at 9:00 AM zinc sulfate (ZINCATE) 50 mg zinc (220 mg) capsule Take 1 capsule (220 mg total) by mouth daily. Yes 10/25/2024 at 9:00 PM acetaminophen (TYLENOL) 325 MG tablet Take 3 tablets (975 mg total) by mouth every 8 hours. alcohol swabs PadM Use as instructed. apixaban (ELIQUIS) 2.5 mg Tab Take 1 tablet (2.5 mg total) by mouth 2 times a day. aspirin 81 MG chewable tablet Chew 1 tablet (81 mg total) by mouth daily. atovaquone (MEPRON) 750 mg/5 mL suspension Take 10 mLs (1,500 mg total) by mouth daily for 30 doses. blood sugar diagnostic (GLUCOSE BLOOD) Strp Use to test blood sugar up to 4 times a day. Dx: 9.65. Brand per pharmacy / insurance preference. blood-glucose meter (GLUCOSE MONITORING KIT) kit Use to test blood sugar up to 4 times a day. Dx: 9.65. Brand per pharmacy / insurance preference. blood-glucose sensor (FREESTYLE NIDA 3 PLUS SENSOR) Radha Use 1 sensor as directed every 15 days. ergocalciferol (ERGOCALCIFEROL) 1,250 mcg (50,000 unit) capsule Take 1 capsule (50,000 Units total)by mouth once a week. famotidine (PEPCID) 20 MG tablet Take 1 tablet (20 mg total) by mouth 2 times a day. fluconazole (DIFLUCAN) 200 MG tablet Take 1 tablet (200 mg total) by mouth daily for 30 days. FREESTYLE NIDA 3 READER [facility] 1 each as directed Use as directed. insulin lispro 100 unit/mL In Administer insulin with meals per sliding scale: Blood glucose 150-199 mg/dL =2 units, Blood glucose 200-249 mg/dL =4 units, Blood glucose 250-299 mg/dL =7 units, Blood glucose 300-349 mg/dL =10 units, Blood glucose greater than 349 mg/dL = 12 units insulin NPH isoph U-100 human 100 unit/mL (3 mL) In Inject 5 Units subcutaneously in the morning and at bedtime. lancets [facility] Use to test blood sugar up to 4 times a day. Dx: 9.65. Brand per pharmacy / insurance preference. methocarbamoL (ROBAXIN) 500 MG tablet Take 1 tablet (500 mg total) by mouth 3 times a day. mycophenolate (CELLCEPT) 250 mg capsule Take 2 capsules (500 mg total) by mouth 2 times a day. naloxone (NARCAN) 4 mg/actuation [place] Apply 1 spray in one nostril if needed. Call 911. May repeat dose in other nostril if no response in 3 minutes. pen needle, diabetic 32 gauge x 5/32 Ndle For use with insulin pen. Use as instructed. polyethylene glycol (GLYCOLAX) 17 gram/dose powder Take 17 g by mouth daily as needed (Constipation). predniSONE (DELTASONE) 5 MG tablet Take 4 tablets (20 mg total) by mouth daily. senna-docusate (SENNOSIDES-DOCUSATE SODIUM) 8.6-50 mg per tablet Take 1 tablet by mouth at bedtime as needed for Constipation. sulfamethoxazole-trimethoprim (BACTRIM) 400-80 mg per tablet Take 1 tablet by mouth daily. tacrolimus (PROGRAF) 1 MG capsule Take 10 capsules (10 mg total) by mouth 2 times a day. Use as directed valGANciclovir (VALCYTE) 450 mg tablet Take 1 tablet (450 mg total) by mouth daily. Scheduled Meds: cefTRIAXone (ROCEPHIN) IVPB 2 g Intravenous Q12H And AMPicillin IVPB 1 g Intravenous 4 times per day eye ointment Both Eyes BID famotidine (PF) 20 mg Intravenous 2 times per day heparin 5,000 Units Subcutaneous 3 times per day isavuconazonium sulfate (CRESEMBA) 372 mg in sodium chloride 0.9 % 250 mL IVPB 372 mg Intravenous Q8H [START ON 10/28/2024] methylPREDNISolone sod suc(PF) 125 mg Intravenous Once Followed by [START ON 10/29/2024] methylPREDNISolone sod suc(PF) 60 mg Intravenous Once Followed by [START ON 10/30/2024] methylPREDNISolone sod suc(PF) 50 mg Intravenous Once Followed by [START ON 10/31/2024] predniSONE 40 mg Oral Once Followed by [START ON 11/01/2024] predniSONE 30 mg Oral Once Followed by [START ON 11/02/2024] predniSONE 25 mg Oral Once Followed by [START ON 11/03/2024] predniSONE 20 mg Oral Daily 0900 mycophenolate (CELLCEPT) IVPB 500 mg Intravenous BID Continuous: angiotensin II (GIAPREZA) 0.005 mg/mL in sodium chloride 0.9 % 500 mL infusion Stopped (10/27/24 0500) EPINEPHrine (ADRENALIN) 10 mg in sodium chloride 0.9 % 250 mL infusion Stopped (10/26/24 1251) fentanyl (SUBLIMAZE) IV infusion 150 mcg/hr (10/26/24 2230) insulin regular in 0.9 % sodium chloride 2.5 Units/hr (10/27/24 0458) norepinephrine 10 mcg/min (10/27/24 0706) propofol 30 mcg/kg/min (10/27/24 0713) sodium chloride 0.9 % Stopped (10/27/24 0252) sodium chloride 0.9 % Stopped (10/27/24 0252) sodium chloride 0.9 % Stopped (10/27/24 0252) vasopressin 0.03 Units/min (10/27/24 0140) PRN Meds: dextrose 10% in water OR dextrose 10% in water, fentanyl (SUBLIMAZE) IV infusion AND fentaNYL, glucose, heparin (porcine) 1,000 unit/mL 10,000 Units in sodium chloride 0.9 % 1,000 mL IRRIGATION, lactated Ringers, sterile water Allergies[1] Social History Tobacco Use Smoking status: Former Types: Cigarettes Smokeless tobacco: Current Substance Use Topics Alcohol use: Yes Comment: History of alcohol abuse, reports no use in 3 week- typically endorses use as 4 glasses ofwine a days History reviewed. No pertinent family history. REVIEW OF SYSTEMS: Review of Systems conducted with patient and pertinent positives are noted in HPI. CONSTITUTIONAL General: Intubated, follows commands Temp: [98.2 ??F (36.8 ??C)-100.2 ??F (37.9 ??C)] 98.2 ??F (36.8 ??C) Heart Rate: [83-116] 84 Resp: [0-21] 16 BP: (107-143)/(57-75) 117/75 Arterial Line BP: (90-133)/(28-63) 124/53 FiO2: [30 %-98 %] 56 % HEENT Exam: NC/AT, pupils equal, no facial swelling A/P: - No acute issues RESPIRATORY Exam: Intubated, mechanically ventillated Ventilator Settings: Vent Mode: VC-SIMV/PRVC FiO2: [30 %-98 %] 56 % S RR: [16] 16 S VT: [500 mL] 500 mL Spont TV: [0 mL-902 mL] 0 mL Inspiratory Time Set: [1 sec] 1 sec PIP: [8.9 cm H2O-39 cm H2O] 39 cm H2O Plateau Pressure (cm H2O): [13 cm H2O] 13 cm H2O Delta Pressure Support (cm H2O): [10 cm H2O-12 cm H2O] 10 cm H2O PEEP/CPAP: [0 cm H20-6 cm H20] 5 cm H20 O2 Device: No data found. Blood Gas Measurements pH: (!) 7.32 (10/27/24 001) PCO2: 37 (10/27/2412) PO2: (!) 137 (10/27/2412) HCO3: (!) 20 (10/27/2412) Base Excess: (!) -6.4 (10/27/2412) SaO2: 100 (10/27/24 0013) Recent Labs 10/26/24 0610 10/26/24 1048 10/27/24 0013 PHART 7.27* 7.37 7.32* PCO2 47* 36 37 PO2ART 127* 91 137* [id number] 21* 22 20* BEART -5.4* -3.9* -6.4* A/P: # Acute respiratory insufficiency # Acute hypoxic respiratory insufficiency - Intubated post OR secondary to transfusion, no concerns for oxygenation during case - CXR: - Tolerated SIMV - minimal settings Fi 30, peep 5, RR 16, Tv 500 - Possible SBT this am vs tomorrow AM - Goal wean ventilation needs - ABG post op, then prn - Wean O2 as able for SpO2 > 92% # Chronic Allergies - Hold home claritin CARDIOVASCULAR Exam: tachycardic, regular rhythm Troponin: No results found for: TROPONINI Cardiac data: 10/09/24 - Left ventricle: The cavity size is [...] at baseline or with provocation, shows no [id number] atrial level shunt. - Pulmonary arteries: Systolic [...] of stress attained. The study is non-diagnostic. A/P: - MAP goal > 65 # Shock, Hypovolemic - Given large resuscitation during OR - Pressor need levo, vaso, epi, methylene blue bolus immediately OR s/p reperfusion - Pre takeback - Off epi, methylene blue - Pressor Levo 5, vaso, angiotensin II at 5 - Goal - wean angiotensin II to off (2.5 increment), Goal levo sub 20, then wean to vaso off, goal levo sub 10. - Product given overnight 2/2 to teg: see heme - Also given 25% albumin 3 doses for drain output, 1L 5% albumin for hemoconcentration/hypovolemia - Continue resuscitation today - MAP goal > 65 # Chronic Hypotension Home meds: midodrine 10mg TID - Hold at this time # HLD - Not on statin NUTRITION A/P: - Diet: NPO - No acute issues GASTROINTESTINAL Exam: Abdomen soft, ND, Dressing over incisions Recent Labs 10/26/24 1048 10/26/24 1642 10/27/24 0013 ALKPHOS 56 39 26* ALT 736* 458* 261* AST 872* 374* 157* BILITOT 5.9* 2.3* 1.6* ALBUMIN 2.5* 2.5* 3.0* 3.0* 2.8* 2.8* BILIDIRECT 4.74* 1.85* 1.17* PROT 3.5* 3.8* 3.8* A/P: # Cirrhosis # S/p OLT (piggyback), takeback 10/27 bile duct reconstruction - Pre-op MELD 32 - Bile completed 10/27/24 - NIA drain x2, empty q1hr - Trend LFTs, bilirubin - LFTs downtrending appropriately - Transplant ultrasound today # Chronic Ascites - Underwent paracentesis twice weekly pre-op - Hold home lasix, spironolactone - Albumin replacement 25% for 1L output - given 3x replacement overnight # GERD - Home pantoprazole 40mg daily, hold - IV pantoprazole while intubated, NPO Last BM: SAFETY COUNSELOR Bowel regimen: Senna/Miralax when able Nausea: Zofran PRN FLUID/ELECTROLYTES Recent Labs 10/26/24 1048 10/26/24 1642 10/27/24 0013 NA 139 142 141 K 2.9* 3.3* 3.2* CL 107 109 109 CO2 22 23 21 BUN 61* 63* 64* CREATININE 2.78* 2.85* 2.58* CALCIUM 8.8 8.9 8.9 MG 2.0 2.0 1.8 PHOS 4.1 4.4 5.3* GLUCOSE 253* 127* 126* Intake/Output Summary (Last 24 hours) at 10/27/2024 0716 Last data filed at 10/27/2024 0715 Gross per 24 hour Intake 18454.82 ml Output 7060 ml Net 6224.82 ml IV Fluids: angiotensin II (GIAPREZA) 0.005 mg/mL in sodium chloride 0.9 % 500 mL infusion, Last Rate: Stopped (10/27/24 0500) EPINEPHrine (ADRENALIN) 10 mg in sodium chloride 0.9 % 250 mL infusion, Last Rate: Stopped (10/26/24 1251) fentanyl (SUBLIMAZE) IV infusion, Last Rate: 150 mcg/hr (10/26/242229) insulin regular in 0.9 % sodium chloride, Last Rate: 2.5 Units/hr (10/27/24 0458) norepinephrine, Last Rate: 10 mcg/min (10/27/24 07) propofol, Last Rate: 30 mcg/kg/min (10/27/24 07) sodium chloride 0.9 %, Last Rate: Stopped (10/27/24251) sodium chloride 0.9 %, Last Rate: Stopped (10/27/24251) sodium chloride 0.9 %, Last Rate: Stopped (10/27/24251) vasopressin, Last Rate: 0.03 Units/min (10/27/24 0140) A/P: - Goal UOP >0.5 cc/kg/hr - Strict I/Os - Manual Electrolyte Replacement - Renal labs per protocol - Post op Hypokalemia - Chronic - on PO K at baseline - Needs aggressive replacement - resolved RENAL/ Recent Labs 10/26/24 10410/26/24164110/27/24 0013 BUN 61* 63* 64* CREATININE 2.78* 2.85* 2.58* A/P: # Hepatorenal Syndrome # S/p DDKT Baseline Cr 3.5 - Admission Cr 3.87, current 2.58 - Sodium bicarb 1300mg TID, hold - Labs per transplant protocol - 3 day berkowitz - dc 10/30 - Makes urine at baseline - Has never required dialysis - Continue berkowitz SKIN/MUSCULOSKELETAL Exam: Warm, dry; no significant edema A/P: ADDY HEMATOLOGIC Labs: Recent Labs 10/26/24 10410/26/24164110/27/24 0013 WBC 17.3* 10.0 5.0 HGB 12.8* 10.5* 8.5* HCT 37.2* 30.2* 23.9* MCV 88.3 87.7 88.5 PLT 109* 48* 35* No results for input(s): ANTIXALMWHEP in the last 72 hours. Recent Labs 10/26/24 1048 10/26/24 1642 10/27/24 0013 INR 2.0* 1.7* 1.5* PROTIME 23.0* 20.3* 18.6* No results for input(s): TEGANGLE , TEGKTIME , AGEROEWK29 , TEGMAXAMPL , TEGRTIME , CBMZ in the last 72 hours. A/P: # Acute blood loss anemia - Massive OR blood loss/transfusion 10/26/24: EBL 17L, 10 pRBC, 10FFP, 2 platelet, 4 cryo - Hgb stable prior to OR takeback - Transfusion parameters below - Trend TEG, normalize with product - If hypotensive consider product resuscitation # Coagulopathy - Received 5 cryo, 1FFP. 1 platelet prior to OR takeback - Trend teg - correct as needed # Chronic Thrombocytopenia - Admission platelet 56 - Monitor with CBC per protocol - Small concern for CHONG as he was given 1 platelet and platelets downtrended Transfusion parameters: -Transfuse pRBC for hgb < 7 -Transfuse FFP for R time > 9 or INR > 1.7 and bleeding -Transfuse Cryoprecipitate for MA CFF < 15, or low fibrinogen -Transfuse platelets for MA < 55 - Give TXA for LY30 > 3% ENDOCRINE Glucose range: Lab 10/27/24 0446 10/27/24 0150 10/27/24 0121 10/27/24 0013 10/27/24 0008 10/26/24 2315 10/26/24 2214 10/26/24 2116 10/26/24 2005 10/26/24 1658 10/26/24 1642 10/26/24 1206 10/26/24 1048 10/26/24 0612 10/26/24 0610 10/26/24 0514 10/26/24 0424 10/26/24 0331 10/26/24 0140 10/26/24 0039 10/25/24 2340 10/25/24 2217 10/25/24 2156 10/22/24 0000 10/21/24 0000 POC GLU MONITORING DEVICE 124* 121* 123* -- 121* 120* 124* 119* 113* < > -- < > -- <> -- -- -- -- -- -- -- -- < > -- -- POCGLUART -- -- -- -- -- -- -- -- -- -- -- -- -- -- -- 183* 185* 153* 116* 116* 101* -- -- -- -- GLUCOSE -- -- -- 126* -- -- -- -- -- -- 127* -- 253* -- 210* -- -- -- -- -- -- 114* -- 107 116 < > = values in this interval not displayed. Insulin Orders Dose Frequency Start End insulin (HumuLIN R) infusion - TITRATABLE NURSING PROTOCOL (HYPERGLYCEMIA) 0-28 Units/hr Continuous10/25/2024 10/26/2024 Admin Instructions: FOR O.R. USE only. Titrate in O.R. for blood glucose management HIGH ALERT MEDICATION Route: Intravenous A/P: # Stress induced hyperglycemia Home meds: None Last A1c: 3.7 - Insulin gtt 2.5, titrate with needs, continue # Hypothyroidism - Home levothyroxine 75 mcg daily, hold INFECTIOUS DISEASE Micro data: - Intra-op Cultures: - Surgical swab from abdomen: NGTD - Urine culture: NGTD - Anaerobic culture: NGTD - Fungus culture: NGTD - Cultures from kidney with stain: NGTD - Fungus kidney: NGTD - Anaerobic Kidney: NGTD Current Anti-Infectives Dose Frequency Start End AMPicillin 1 g in sodium chloride 0.9% 100 mL IVPB ([id number]) 1 g Every 6 hours scheduled Admin Instructions: Dosage may need to be adjusted for renal dysfunction. Full dose is 1g IV q6h Use [id number] Adapter - Mix Thoroughly Before Administration Notes to Pharmacy: On order processing clerk estimated creatinine clearance is 35.9 mL/min (A) (based on SCr of 3.87 mg/dL (H)). Route: Intravenous Linked Group 1: Placed in And Linked Group cefTRIAXone (ROCEPHIN) 2 g in sodium chloride 0.9 % 100 mL [id number] Continuous - One Step Medications Only 10/27/2024 -- Route: Intravenous cefTRIAXone (ROCEPHIN) 2 g in sodium chloride 0.9% 20 mL IV Push 2 g Every 12 hours 10/26/2024 10/28/2024 Admin Instructions: Give 24 hours after pre-op dose. ADMINISTER IV PUSH. Infuse over 5 minutes. Draw up 20 mL Sodium Chloride 0.9% into empty syringe. Inject 20 mL into vial of Ceftriaxone. Shake well. Withdraw volume into syringe and administer immediately. Route: Intravenous Linked Group 1: Placed in And Linked Group isavuconazonium sulfate (CRESEMBA) 372 mg in sodium chloride 0.9 % 250 mL IVPB 372 mg Every 8 hours10/26/2024 10/28/2024 Admin Instructions: Flush IV line before and after infusion. Must be administered via an infusion set with a 0.2 micron in-line filter Route: Intravenous A/P: # Leukocytosis Likely reactive in s/o surgery - Continue perioperative Abx, ampicillin, fluconazole (may hold/clarify with pharmacy/transplant due to elevated Qtc 625 last EKG, will repeat) - Monitor for clinical s/s of infection # Immunosuppression - pred taper, cellcept, Thymo, tac when able NEUROLOGIC Exam: Follows commands in all four extremities A/P: # Agitation - Propofol gtt # Analgesia - Fentanyl gtt PSYCHIATRIC Exam: Mood/affect appropriate Barth Agitation Sedation Scale: -2 Overall CAM-ICU : (edward) A/P: - ADDY # Mood Disorder - prozac 20 daily, hold at this time Sleep: ADDY Delirium: ADDY CHECKLIST Patient Lines/Drains/Airways Status Active Epidural Line / PICC Line / PIV Line / ART Line / Line / CVC Line Name Placement date Placement time Site Days Peripheral IV 10/25/24 Anterior;Distal;Left Antecubital 10/25/24 2130 Antecubital 1 Peripheral IV 10/26/24 Anterior;Left Forearm 10/26/24 0609 Forearm 1 Arterial Line 10/25/24 Right Radial 10/25/24 2245 Radial 1 Introducer 10/25/24 Internal jugular Right 10/25/24 2355 Internal jugular 1 Central Line? Yes - Reason: Hemodynamic instability R IJ Mac Arterial Line? R radial [place] Urinary Catheter? Berkowitz - Reason: Adequate I/O DVT Prophylaxis: Subcutaneous Heparin GI Prophylaxis: PPI PT/OT: will engage when appropriate Activity: Bed in chair position DISPOSITION Remain in SICU JOHN MORENO MD 10/27/2024 7:16 AM ICU ATTENDING PROGRESS NOTE: I have examined Blair Gilbert, reviewed the events of the previous 24 hours, reviewed, confirmed andamended the resident's data, history and physical exam as needed. The case has been discussed with the Transplant team. I note the following in my assessment and will implement this plan of coordinated critical care management as follows: This patient was seen by the SICU resident team, nurses, pharmacist, and respiratory therapist. I have personally seen, examined, and discussed this patient with the critical care team on 10/27/2024. My assessment is noted below, and the multidisciplinary recommendations have been discussed with theTransplant team. Blair Gilbert remains in the ICU to address deficits in multiple systems. Each system was discussed on rounds and the details are listed in the resident note above. Adjustments to the note were made while rounds were performed to include changes agreed upon by the multidisciplinary team. My changes were added to the resident note. My assessment reveals: 39 year old male with esld and renal failure. Presents for staged OLT and DDKT. PMH notable for Hypothyroidism On 10/26 underwent OLT On 10/27 underwent DDKT and bile duct reconstruction and closure Signficiant resuscitation after first case. Returned from second case off all pressors except for vaso. Kidney functioning. HEENT: No Acute Issues RESPIRATORY: Acute respiratory failure requiring intubation P:F: Vent Mode: Spont PS/PEEP FiO2: [26 %-100 %] 26 % S RR: [0-16] 0 S VT: [500 mL-550 mL] 550 mL PEEP/CPAP: [0 cm H20-6 cm H20] 5 cm H20 Wean to SBT Attempt extubation today CARDIOVASCULAR: Shock, Unspecified Likely combination of Hypovolemia and liver dysfunction Will plan to extubate with cessation of sedation. At that point I expect we will be able to come off vaso. If we need to restart pressor, will restart levo NUTRITION: No acute issues Hold on PO diet GASTROINTESTINAL: OLT complete Duct anastomosis complete Await US Need clarification on drain management FLUIDS / ELECTROLYTES: No acute issues Manual replacement RENAL: Renal failure, chronic S/p DDKT Follow urine output Ultrasound pending Fluid replacements per txp protocol SKIN/MUSCULOSKELETAL: ADDY HEMATOLOGIC: Acute post hemorrhagic anemia Follow cbc Appears to have stabilized over last 12 hours ENDOCRINE: Hyperglycemia Insulininfusion Hypothyroidism Restart synthroid when taking PO INFECTIOUS DISEASE: No acute issues Prophylaxis per primary NEUROLOGIC: No acute issues PSYCHIATRIC, PAIN, SEDATION: Pain Management INJURY / DISEASE SPECIFIC NEEDS: No acute issues ACTIVE LINES; Patient Lines/Drains/Airways Status Active Epidural Line / PICC Line / PIV Line / ART Line / Line / CVC Line Name Placement date Placement time Site Days Peripheral IV 10/25/24 Anterior;Distal;Left Antecubital 10/25/24 2130 Antecubital 1 Peripheral IV 10/26/24 Anterior;Left Forearm 10/26/24 0609 Forearm 1 Arterial Line 10/25/24 Right Radial 10/25/24 2245 Radial 1 Introducer 10/25/24 Internal jugular Right 10/25/24 2355 Internal jugular 1 Central Line? Yes - Reason: Hemodynamic monitoring and Device introducer ACTIVE /DRAINS: Urinary Catheter? Berkowitz - Reason: Adequate I/O DVT Prophylaxis: Subcutaneous Heparin GI Prophylaxis: PPI DISPOSITION: Remain in ICU Total critical care time spent caring for this patient over the past 24 hours, including direct patient contact, management of life support systems, review of data (i.e.: imaging and lab), discussionwith team members, and excluding time spent on procedures: 35 minutes Lino Waldrop MD 10/27/2024 7:59 PM [1] Allergies Allergen Reactions Adhesive Itching and Rash Tegaderm adhesive on Ivs, pt states its tolerable Duloxetine Other (See Comments) Became Manic * Hillary Fernandes, TaniD - 10/27/2024 6:59 AM EDT Transplant Pharmacy Note Transplant pharmacy is following Blair Gilbert during hospital admission. Patient medical record andtransplant evaluation has been reviewed and home medications will be reinitiated as appropriate. Transplant pharmacy will perform the following activities related to transplant pharmacotherapy: 1. Ensure appropriate management and titration of immunosuppressive, prophylactic, and other supportive care medications; 2. Monitor for any adverse drug effects; 3. Review the patient's medication profile for any potential drug interaction. Per programmatic guidelines, this patient will receive the following immunosuppressive regimen: Liver Transplant - Immunosuppression guidelines: to be determined Protocol Antibody Steroids Antimetabolite Calcineurin Inhibitor STANDARD Includes all recipients (including SLKT) and all types of donors (including SPLIT) None Taper Initiate PRE-op Mycophenolate mofetil (MMF) 500mg po q 12 Initiate on POD#0 Tacrolimus 2-4mg/dose q 12h Initiate by POD#2 Target Levels: POD #0-30: 10-12 ng/mL POD #31-180: 8-10 ng/mL POD #> 180: 3-8 ng/mL Hillary Fernandes PharmD, BCTXP Solid Organ Transplant Clinical Specialist Contact via [employer] Secure Chat Preferred * Simeon Guzman RN - 10/27/2024 2:40 AM EDT Pt was taken to the OR by OR staff. Pt left in B upper extremity limb restraints in place. Care transferred to OR staff at this time. Simeon REDMAN * Jannet Ramires - 10/26/2024 2:30 PM EDT ECG performed on patient Blair Gilbert in SICU-28/USIC-28. Abnormal results noted and given to patient's RN. Test transmitted and paper copy placed in patient's chart. * Quinten Best MD - 10/26/2024 8:17 AM EDT Transplant Surgery Progress Note 10/26/2024 8:17 AM Patient: Blair Gilbert LOS: 1 days Admit Date: 10/25/2024 OR Date: 10/25/2024 - 10/26/2024 Subjective: OR for OLT, temporary closure Arrived to SICU with Levo 24, Epi 5, Vaso 0.03, methylene blue Objective: Vitals: Temp Av.9 ??F (37.2 ??C) Min: 97.6 ??F (36.4 ??C) Max: 100.2 ??F (37.9 ??C) Pulse Av.8 Min: 94 Max: 132 BP Min: 112/56 Max: 147/85 Resp Av.3 Min: 8 Max: 21 SpO2 Av.3 % Min: 98 % Max: 100 % FiO2 Av.6 % Min: 35 % Max: 89 % Vitals: 10/26/24 0815 BP: Pulse: Resp: Temp: SpO2: 98% Intake/Output Summary (Last 24 hours) at 10/26/2024 0817 Last data filed at 10/26/2024 0725 Gross per 24 hour Intake 77934.32 ml Output 2075 ml Net 60624.32 ml Consitutional: Intubated/sedated HEENT: Mucous membranes moist CV: Regular rhythm Pulm: Equal chest rise bilaterally Abdomen: Soft, incision with overlying temporary closure MSK: No obvious deformities Neuro: Sedated Assessment/Plan: Blair Gilbert is a 39 y.o. 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 who is now s/p OLT 10/26/2024, pending kidney transplant Plan: - Post-operative resuscitation, trend labs per protocol Neuro - Propofol/Fentanyl CV - Arrives from OR with Levo, Vaso, Epi, Methylene Blue - Trend labs, TEG based resuscitation, albumin if needs volume - Appreciate SICU assistance - Trend ECG Pulm - Ventilator per SICU GI S/P OLT - Pending bile duct completion - Trend labs per protocol - Replace drain outputs with albumin - POD 0 US ordered - Hold home diuretics - IV PPI FEN - NPO Renal - Renal transplant pending hemodynamic stability/resuscitation Endo - Insulin gtt - Home synthroid when able ID - Perioperative antibiotics - Will need antifungal for temporary closure when QTC okay Immunosuppression - Steroid taper - Cellcept - [place] timing to be discussed Prophylaxis: SCDs, SQH CODE: Full Code DISPO: SICU Quinten Best MD General Surgery Resident Cosigned by Harvey Domínguez III, MD at 10/30/2024 10:46 AM EDT Associated attestation - Harvey Domínguez III, MD - 10/30/2024 10:46 AM EDT I saw and evaluated the patient on 10/26/24, and discussed with the SAWYER/resident team. I agree with the SAWYER/resident???s findings and plan as documented in the SAWYER/resident???s note. Immunosuppression reviewed and discussed with multidisciplinary team. --- Diandra Domínguez III, MD Transplant Surgery (cell) * Jannet Ramires - 10/26/2024 8:15 AM EDT ECG performed on patient Blair Gilbert in SICU-28/USIC-28. Abnormal results noted and given to patient's RN. Test transmitted and paper copy placed in patient's chart. documented in this encounter H&P Notes * Leandra Og MD - 10/25/2024 8:24 PM EDT Transplant Surgery History and Physical Patient: Blair Gilbert CSN: [id number] History CC:ESLD 2/2 alcohol cirrhosis, ESRD 2/2 presumed hepatorenal syndrome HPI: Blair Gilbert is a 39 y.o. 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 Decompensations: large volume ascites (paracentesis twice weekly), hepatic encephalopathy, bleedingesophageal varices, hepatorenal syndrome Hx of Cardiopulmonary Disease: HTN Echo July 2024: LVEF 60%, normal diastolic function Stress Echo September 2024: no echo findings of stress induced ischemia though study was terminated due to profound hypotension Blair Gilbert otherwise feels well though had a recent admission for c/f spontaneous bacterial peritonitis though cultures ultimately were negative. Not discharged home on antibiotics. MELD 3.0: 32 at 10/22/2024 12:00 AM Calculated from: Serum Creatinine: 3.3 mg/dL (Using max of 3 mg/dL) at 10/22/2024 12:00 AM Serum Sodium: 133 mmol/L at 10/22/2024 12:00 AM Total Bilirubin: 7.3 mg/dL at 10/21/2024 12:00 AM Serum Albumin: 3.2 g/dL at 10/22/2024 12:00 AM INR(ratio): 1.52 at 10/21/2024 12:00 AM Age at listin years Sex: Male at 10/22/2024 12:00 AM PMH: Past Medical History: Diagnosis Date Alcoholic cirrhosis of liver (CMS-HCC) Esophageal varices (CMS-HCC) Hepatorenal syndrome (CMS-HCC) Hypertension Other hyperlipidemia 07/26/2024 Renal cell carcinoma (CMS-HCC) Thrombocytopenia (CMS-HCC) Thyroid disease PSH: Past Surgical History: Procedure Laterality Date ESOPHAGOGASTRODUODENOSCOPY N/A 10/10/2024 Procedure: EGD; Surgeon: Lino Soto MD; Location: ENDOSCOPY; Service: Gastroenterology; Laterality: N/A; LEFT HEART CATH N/A 10/14/2024 Procedure: Left Heart Cath; Surgeon: Irving Matta MD; Location: CARDIAC CATH LABS; Service:Cath; Laterality: N/A; Medications: Home Medications Medication Sig Taking? Last Dose ciprofloxacin HCl (CIPRO) 500 MG tablet Take 1 tablet (500 mg total) by mouth daily. FLUoxetine (PROZAC) 20 MG capsule Take 1 capsule (20 mg total) by mouth daily. folic acid (FOLVITE) 1 MG tablet Take 1 tablet (1 mg total) by mouth daily. lactulose (CHRONULAC) 10 gram/15 mL solution Take 30 mLs (20 g total) by mouth 3 times a day. levothyroxine (SYNTHROID) 75 MCG tablet Take 1 tablet (75 mcg total) by mouth every morning before breakfast. loratadine (CLARITIN) 10 mg tablet Take 1 tablet (10 mg total) by mouth daily as needed for Allergies (itching). methocarbamoL (ROBAXIN) 500 MG tablet Take 1 tablet (500 mg total) by mouth 3 times a day. midodrine (PROAMATINE) 10 MG tablet Take 1 tablet (10 mg total) by mouth 3 times a day. naloxone (NARCAN) 4 mg/actuation [place] Apply 1 spray in one nostril if needed. Call 911. May repeat dose in other nostril if no response in 3 minutes. pantoprazole (PROTONIX) 40 MG tablet Take 1 [...] tablet (100 mg total) by mouth daily. ursodioL (ACTIGALL) 300 mg capsule Take 1 capsule (300 mg total) by mouth 2 times a day. zinc sulfate (ZINCATE) 50 mg zinc (220 mg) capsule Take 1 capsule (220 mg total) by mouth daily. Allergies: Adhesive and Duloxetine SH: Social History Socioeconomic History Marital status: Spouse [...] Strain: Low Risk (07/09/2024) Received from [facility] Overall Financial Resource Strain (CARDIA) [...] No Physical Activity: Unknown (07/14/2024) Received from [facility] Exercise Vital Sign Days of Exercise per Week: Patient unable to answer Minutes of Exercise per Session: Not on file Stress: Patient Unable To Answer (07/14/2024) Received from [facility] [place] of Occupational Health - Occupational Stress Questionnaire Feeling of Stress : Patient unable to answer Social Connections: Patient Unable To Answer (07/14/2024) Received from [facility] Social Connection and Isolation Panel [NHANES] [...] answer Intimate Partner Violence: Not At Risk (10/10/2024) Humiliation, Afraid, Rape, and Kick questionnaire Fear of Current or Ex-Partner: No Emotionally Abused: No Physically Abused: No Sexually Abused: No Housing Stability: Low Risk (10/06/2024) Housing Stability Vital Sign Unable to Pay for Housing in the Last Year: No Number of Times Moved in the Last Year: 0 Homeless in the Last Year: No FH: No family history on file. Family history was reviewed and is non-contributory. ROS: Review of Systems Constitutional: Negative for chills and fever. HENT: Negative for congestion and sore throat. Respiratory: Negative for cough and chest tightness. Cardiovascular: Negative for chest pain and palpitations. Gastrointestinal: Negative for constipation and diarrhea. Genitourinary: Negative for dysuria and urgency. Neurological: Negative for light-headedness and headaches. Vital Signs BP: ()/() Arterial Line BP: ()/() There were no vitals filed for this visit. Physical Exam Physical Exam HENT: Head: Normocephalic and atraumatic. Eyes: General: Scleral icterus present. Extraocular Movements: Extraocular movements intact. Cardiovascular: Rate and Rhythm: Normal rate. Comments: Doppler signals in bilateral PT and DP arteries, palpable femoral pulse bilaterally Pulmonary: Effort: Pulmonary effort is normal. Abdominal: General: There is distension. Palpations: Abdomen is soft. Tenderness: There is no guarding. Musculoskeletal: Cervical back: Normal range of motion and neck supple. Right lower leg: Edema present. Left lower leg: Edema present. Skin: General: Skin is warm and dry. Neurological: General: No focal deficit present. Mental Status: He is alert and oriented to person, place, and time. Psychiatric: Mood and Affect: Mood normal. Behavior: Behavior normal. Laboratory Data Invalid input(s): CO2ART , HBO2PE Lab 10/22/24 0000 10/21/24 0000 SODIUM 133* 132* POTASSIUM 3.7 3.8 CHLORIDE 106 105 CO2 18 16 BUN 62* 64* CREATININE 3.30* 3* GLUCOSE 107 116 CALCIUM 9 8.9 PHOSPHORUS 5.8* -- Lab 10/21/24 0000 INR 1.52* PROTHROMBIN TIME 16.4 Lab 10/22/24 0000 10/21/24 0000 ALT -- 32 AST -- 57 ALK PHOS -- 190 BILIRUBIN TOTAL -- 7.3* BILIRUBIN DIRECT -- 5.4 ALBUMIN 3.2* 3.1* Invalid input(s): NICCI Other labs: Imaging Studies No results found. Assessment and Plan Blair Gilbert is a 39 y.o. 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 Consent obtained and patient site marked. Labs, EKG, and CXR order and will be reviewed. Janneth-op antibiotics and immunosuppression ordered. Plan to proceed to OR for liver transplant and will be admitted to SICU post-op. LEANDRA OG MD [facility] Liver Transplant Pager: [phone] 8:24 PM 10/25/2024 Cosigned by Harvey Domínguez III, MD at 10/30/2024 10:46 AM EDT Associated attestation - Harvey Domínguez III, MD - 10/30/2024 10:46 AM EDT I saw and evaluated the patient on 10/25/24, and discussed with the SAWYER/resident team. I agree with the SAWYER/resident???s findings and plan as documented in the SAWYER/resident???s note. Standard induction immunosuppression with methylpred in ahepatic phase. Risks and benefits of OLT reviewed. Plan for delayed kidney txp Does not need dialysis prior to txp or intra-op CRRT --- Diandra Domínguez III, MD Transplant Surgery (cell) documented in this encounter Procedure Notes * Flaquito Ba MD - 10/27/2024 6:29 AM EDT Patient Name: Blair Gilbert Date: 1985 Billing #: [id number] Date of Procedure: 10/25/2024 Diagnosis: End Stage Renal Disease Procedure: 1. Donor Kidney Transplant 2. Back Bench Preparation Donor Kidney 3. Baseline Kidney transplant biopsy 4. Insertion of Indwelling Stent 5. Removal of Perihepatic packing Surgeons * Flaquito Ba MD Automotive Refinish Technician MD Shayan Findings: Low Hockey stick incision extended laterally. Intentionally packed 5 Raytecs and 2 laps removed. Left kidney placed in left iliac fossa. Bladder was normal. Ureter anastomosed to bladder with anterior neocystotomy over double J stent. Berkowitz duration: 3 days Offer Biopsy: Gloms 199 GS 24%, IFTA 6- 25 %, Vascular disease 10-25 % Pump No:70 ml/min RI 0.35 Anesthesia: GETA EBL: 200 cc Cold Ischemic Time: 33 hr 17 min Warm Ischemic Time: 27 min Operative Times: Cross clamp on donor: 10/25/24 192 Incision on recipient: 10/25/24 0325 Kidney taken out of ice: 10/27/24 0416 Kidney reperfused: 10/27/24 0443 All incisions closed: Indications for Procedure: Blair Gilbert is a .39 y.o. who has Liver failure MELD 32 and ESRD on dialysis. cPRA 62%. Earlier today a donor Liver and [place] became available. H underwent the liver implantation earlier, liver was packed and the bile duct was left in discontinuity and drained externally. This donor was ABO O and UNOS ID [id number], Match Run [id number] (K). This donor was a Donor after cardiac with abdominal NRP. The KDPI was 20%. Donor had a h/o DM A1c 7%, BMI 25. The terminal cr was 0.3 (on presentation 1.03, peak 1.03), with urine output 50-68 ml/hr. The kidney was pumped, flows 70 ml/min, RI 0.35. I personally confirmed that the donor ABO was O and the patient was also ABO O prior to implantation in the recipient. The virtual crossmatch was negative. The flow crossmatch was negative. Patient was induced with Solu-Medrol. The donor had risk factors for blood-borne disease transmission. All donors and living donors are tested for HIV, HBV, and HCV so the risk for undetected infections is very low, but not zero. Some donors may have risk factors for acute HIV, HBC and HCV infection related to recent social history of injection drug abuse, risky sexual behavior, incarceration or unknown history within the past 30 days. After transplantation, all transplant recipients will be tested for HIV, HBV, and HCV infection. If transmission occurs, there are effective therapies available. The donor serologies were negative for HBcAb+/HBV KIANA+/HCVAb+/HCV KIANA+. Procedure: Back bench preparation donor left kidney. The kidney was removed from the packing and the UNOS number verified. It was a normal appearing left kidney with no obvious masses. We removed all the fat from the kidney and I dissected the renal vein and renal artery of the kidney. The adrenal branches were tied with 3-0 silk ties. Other phrenic branches were also tied off. The ureter was splayed out to length was not stripped. A wedge biopsy was obtained and the defect closed with 5-0 Chromic .The remaining fibrofatty tissue was removed and the kidney was reimersed into the solution and ready for transplantation. Procedure: Kidney transplant. The patient is brought to the operating room. He had remained intubated after the liver. The abdomen was prepped and draped as standard for kidney transplantation. Time out was performed. The Temporary closure was opened. Mostly serous fluid in the abdomen. Gentle irrigation was used to gain access to the abdomen and things had stated to fuse. Both laps and 5 raytex were then removed. All anastomosis were hemostatic but there was generalized hypocoagulability. The abdomen was then wanded with the lap detection project administrative assistant. The incision was ex tented 2 inches to gain additional visualization. side of the abdomen from the point medial to the anterior iliac spine and the symphysis pubic to the midline and all the layers of the abdomen were divided with electrocautery. Using a muscle sparing approach the retroperitoneum was exposed. At this point, the peritoneum was mobilized medially to expose the iliac vessels. Then, an abdominal retractor was placed to facilitate exposure. The external iliac artery and external iliac vein on the left side were dissected free of the surrounding tissue and were prepared for the anastomosis of the graft and the lymphatic vessels were ligated with silk ties. The graft was brought into the field . A venotomy was made and extended. The renal vein was anastomosed first end-to-side to the external iliac vein of the recipientusing 5-0 Prolene. A bulldog clamp was placed on the renal vein. An arteriotomy was then made and extended with a 4-0 punch. The renal artery was anastomosed end-to-side to the external iliac artery of the recipient using as well as 5-0 Prolene suture. 100mg of lasix were given before releasing the clamps. The kidney was reperfused. It was pink. The ureter appears to be sufficiently perfused. Atthis point, we performed a neoureterocystotomy over a stent. The right lateral aspect of the bladder was exposed, and a muscular tunnel was created by incising the detrusor, thereby exposing the bladder mucosa. We measured out the adequate distance of the ureter, and ligated and divided the adventitial vessels at the level where we planned ureteral implantation. The ureter was then spatulated. Weperformed our cystotomy and noted release of the previously instilled bladder irrigation NS with methylene blue. Ureter passed under the cord structures. We began our anastomosis by placing 5-0 Maxonsuture at the heel and toe of our anastomosis. A double J ureteral stent was then inserted into thehilum of the transplanted kidney. The other end was inserted into the bladder lumen. The Maxon sutures were tied. Each side of the anastomosis was then completed in a running fashion to create a water tight seal. A muscular tunnel was created with a running 4-0 Chromic suture loosely around the anastomosis to provide some anti reflux mechanism. Portal and MILLER flows were measured and case was passed to Dr Domínguez. Please see separately dictatednote for the bile duct reconstruction and closure. Flaquito Ba MD Transplant Surgeon clinical psychiatrist * Flaquito Ba MD - 10/27/2024 6:15 AM EDT TRANSPLANT KIDNEY with bile duct reconstruction Brief Op Note Blair Gilbert 10/27/2024 Pre-op Diagnosis: Acute kidney injury superimposed on CKD (CMS-HCC) [N17.9, N18.9] Post-op Diagnosis: same Procedure(s): TRANSPLANT KIDNEY Surgeon(s): MD Harvey Washington III, MD Anesthesia: General Endotracheal Staff: Stretch Box Tender: Chinedu Quinn RN Scrub Person: ST Angela Fellow: Kemar Sahni MD 2nd Stretch Box Tender: Marty Clark RN 3rd Stretch Box Tender: Candis Mcdaniel RN FINDINGS Berkowitz 3 day Drains: Intraabdominal (perihepatic) UNOS ID [id number], Match Run [id number] Kid WIT 27 min Kid CIT 33 hours Estimated Blood Loss: 200 mL Specimens: Specimens ID Description Commments Type Source Tests Collected By Collected At 1 1) perfusate 1) perfusate Fluid Kidney Left ANAEROBIC CULTURE FUNGUS CULTURE ROUTINE CULTURE PLUS STAIN Harvey Domínguez III, MD 10/27/24 0215 A Baseline Renal Biopsy Tissue Kidney Left SURGICAL PATHOLOGY EXAM Harvey Domínguez III, MD 10/27/24 0238 Drains: NG/OG Tube Orogastric (Active) Placement Verification Yes 10/26/241999 Site Assessment Clean;Dry;Intact 10/26/241999 Status Suction-low intermittent 10/26/241999 Drainage Appearance Bloody;Serosanguineous 10/26/241999 Drainage Output (mL) 450 mL 10/26/24 2200 Flushes (mL) 30 mL 10/26/241999 Number of days: 1 Drain 1 Abdomen Right;Superior (Active) Site Description Unable to view 10/26/241999 Drain Type Bulb 10/26/241999 Drain Status Bulb suction 10/26/241999 Dressing Status Clean;Dry;Intact 10/26/241999 Output (mL) 125 mL 10/27/24 0153 Drainage Appearance Serosanguineous 10/26/241999 Number of days: Drain 2 Left;Superior (Active) Site Description Unable to view 10/26/241999 Drain Type Bulb 10/26/241999 Drain Status Bulb suction 10/26/241999 Dressing Status Clean;Dry;Intact 10/26/241999 Output (mL) 25 mL 10/27/24 0100 Drainage Appearance Serous;Serosanguineous 10/26/241999 Number of days: 1 Drain Bilary Abdomen Inferior;Right (Active) Site Description Unable to view 10/26/241999 Drain Type Bag 10/26/241999 Drain Status Open to gravity drainage 10/26/241999 Dressing Status Clean;Dry;Intact 10/26/241999 Output (mL) 150 mL 10/26/24 2200 Drainage Appearance Bile;Brown 10/26/241999 Number of days: 1 IUC (Berkowitz) Triple-lumen (3-Way) 18 Fr. (Active) Status Spicer Drainage 10/26/241999 Collection Container Standard drainage bag 10/26/241999 Securement Method StatLock 10/26/241999 Indication for IUC continuation Require accurate, continuous UOP measuring in critically ill 10/26/241999 Output (mL) 100 mL 10/27/24 0153 Number of days: 2 Ureteral Drain/Stent Left ureter 6 Fr. (Active) Number of days: 0 [REMOVED] NG/OG Tube Nasogastric Left nostril (Removed) Number of days: 3 [REMOVED] Rectal Pouch (Removed) Number of days: 0 [REMOVED] Rectal Tube With balloon (Removed) Number of days: 24 [REMOVED] IUC (Berkowitz) Temperature probe 16 Fr. (Removed) Number of days: 5 There were no complications unless listed below. MEJIA BA MD Date: 10/27/2024 Time: 6:25 AM * Kemar Sahni MD - 10/27/2024 3:25 AM EDT TRANSPLANT KIDNEY with bile duct reconstruction Brief Op Note Blair Gilbert 10/25/2024 - 10/27/2024 Pre-op Diagnosis: ESLD Post-op Diagnosis: Same Procedure(s): Abdominal washout Removal of Perihepatic packing- 5 Raytecs 2 laps Bile Duct Anastomosis Kidney transplant Surgeon(s): MD Harvey Washington III, MD Anesthesia: General Endotracheal Staff: Stretch Box Tender: Chinedu Quinn RN Relief Stretch Box Tender: Michela Amos RN Relief Scrub: Stephani Blake RN Scrub Person: ST Angela Fellow: Kemar Sahni MD 2nd Stretch Box Tender: Marty Clark RN 3rd Stretch Box Tender: Candis Mcdaniel RN Estimated Blood Loss: 300 mL Specimens: Specimens ID Description Commments Type Source Tests Collected By Collected At 1 1) perfusate 1) perfusate Fluid Kidney Left ANAEROBIC CULTURE FUNGUS CULTURE ROUTINE CULTURE PLUS STAIN Harvey Domínguez III, MD 10/27/24 0215 A Baseline Renal Biopsy Tissue Kidney Left SURGICAL PATHOLOGY EXAM Harvey Domínguez III, MD 10/27/24 0238 B B) Right lobe liver biopsy Tissue Liver SURGICAL PATHOLOGY EXAM Harvey Domínguez III, MD 10/27/24 0620 C C) Left lobe liver biopsy Tissue Liver SURGICAL PATHOLOGY EXAM Harvey Domínguez III, MD 10/27/24 0638 Drains: NG/OG Tube Orogastric (Active) Placement Verification Yes 10/26/241999 Site Assessment Clean;Dry;Intact 10/26/241999 Status Suction-low intermittent 10/26/241999 Drainage Appearance Bloody;Serosanguineous 10/26/241999 Drainage Output (mL) 450 mL 10/26/24 2200 Flushes (mL) 30 mL 10/26/241999 Number of days: 1 Drain 2 Left;Superior (Active) Site Description Unable to view 10/26/241999 Drain Type Bulb 10/26/241999 Drain Status Bulb suction 10/26/241999 Dressing Status Clean;Dry;Intact 10/26/241999 Output (mL) 25 mL 10/27/24 0100 Drainage Appearance Serous;Serosanguineous 10/26/241999 Number of days: 1 Drain Bilary Abdomen Inferior;Right (Active) Site Description Unable to view 10/26/241999 Drain Type Bag 10/26/241999 Drain Status Open to gravity drainage 10/26/241999 Dressing Status Clean;Dry;Intact 10/26/241999 Output (mL) 150 mL 10/26/24 2200 Drainage Appearance Bile;Brown 10/26/241999 Number of days: 1 Drain Abdomen Inferior;Right (Active) Number of days: 0 IUC (Berkowitz) Triple-lumen (3-Way) 18 Fr. (Active) Status Spicer Drainage 10/26/241999 Collection Container Standard drainage bag 10/26/241999 Securement Method StatLock 10/26/241999 Indication for IUC continuation Require accurate, continuous UOP measuring in critically ill 10/26/241999 Output (mL) 100 mL 10/27/24 0153 Number of days: 2 Ureteral Drain/Stent Left ureter 6 Fr. (Active) Number of days: 0 [REMOVED] NG/OG Tube Nasogastric Left nostril (Removed) Number of days: 3 [REMOVED] Drain 1 Abdomen Right;Superior (Removed) Site Description Unable to view 10/26/241999 Drain Type Bulb 10/26/241999 Drain Status Bulb suction 10/26/241999 Dressing Status Clean;Dry;Intact 10/26/241999 Output (mL) 125 mL 10/27/24 0153 Drainage Appearance Serosanguineous 10/26/241999 Number of days: [REMOVED] Rectal Pouch (Removed) Number of days: 0 [REMOVED] Rectal Tube With balloon (Removed) Number of days: 24 [REMOVED] IUC (Berkowitz) Temperature probe 16 Fr. (Removed) Number of days: 5 End to end choledochocholedochostomy Berkowitz 3 day Drains: 2 Intraabdominal (perihepatic) UNOS ID [id number], Match Run [id number] Donor: young DCD NRP Kid WIT 27 min Kid CIT 33 hours Removal of Perihepatic packing- 5 Raytecs 2 laps There were no complications unless listed below. KEMAR SAHNI MD Date: 10/27/2024 Time: 7:35 AM Cosigned by Harvey Domínguez III, MD at 10/30/2024 10:46 AM EDT Associated attestation - Harvey Domínguez III, MD - 10/30/2024 10:46 AM EDT --- Diandra Domínguez III, MD Transplant Surgery (cell) * Harvey Domínguez III, MD - 10/27/2024 12:00 AM EDT [facility] PATIENT NAME: BLAIR GILBERT DATE OF : 1985 CSN: [id number] PHYSICIAN: Harvey Domínguez III, MD ADMIT DATE: 10/25/2024 DICTATED BY: Harvey Domínguez III, MD SURGERY DATE: 10/27/2024 OPERATIVE REPORT SURGEON: Harvey Domínguez III, MD AUDIO/VIDEO ENGINEER SURGEON: Kemar Sahni MD. PREOPERATIVE DIAGNOSIS: Open abdomen, status post liver transplant. POSTOPERATIVE DIAGNOSIS: Abdominal closure, status post simultaneous liver and kidney transplant. OPERATIONS/PROCEDURES PERFORMED: 1. Reopening of recent laparotomy 2. Removal of perihepatic packing for control of hemorrhage 3. Liver allograft biopsy 4. Abdominal washout 5. Suture repair of IVC bleeding 2. Choledochocholedochostomy 3. Umbilical hernia repair 4. Abdominal closure ANESTHESIA: General anesthesia with endotracheal intubation. INDICATION FOR OPERATION: Mr. Gilbert is a 39-year-old gentleman who underwent a liver transplant 1 day ago. He had done well postoperatively. He was temporarily closed given some coagulopathy and high pressor requirement and planning for a delayed kidney transplant. He did well over the course of the day yesterday. Initially had extremely high pressor requirements and was started on angiotensin II and had a significant decrease in his pressor requirements and improvement in his vasoplegia. He required a small amount of resuscitation with blood products and was brought to the operating room this morning for reexploration, kidney transplant, and completion of liver transplant procedure. brought him back 1st and removed perihepatic packing and performed a kidney transplant. Following completion of her kidney transplant, I washed out the liver, performed definitive hemostasis, and completed the biliary reconstruction. Prior to coming back to the operating room, the family was made aware of the risks and benefits of the procedure and agreed to proceed. DESCRIPTION OF PROCEDURE: The patient was brought to the operating room early this morning by Dr. Ba. General anesthesia was induced. He already was endotracheally intubated. The temporary abdominal closure dressing was removed, and the left kidney was implanted in the right iliac fossa by Dr. Ba. This was uncomplicated. I joined at this point, Dr. Ba will dictate the details of the kidney transplant separately. We then moved ourretraction back to the right upper quadrant. We placed the Smith retractor. We copiously irrigated the right upper quadrant. We did a systematic exploration. There was a small amount of bleeding from the donor inferior vena cava just proximal to the anastomosis, was controlled with 4-0 Prolene suture.We copiously irrigated the right upper quadrant. We placed Nu-Knit on all the raw surfaces. We visualized the liver, it was soft, beautiful and healthy in appearance. We took a biopsy of the right and left lobes of the liver with an 18-gauge core needle biopsy device. The biopsy sites were made hemostatic with the argon beam activities leader. We assessed the flows of the portal vein and hepatic artery. The portal flow was 2.8 L/minute with a pulsatility index of 0.2. Hepatic artery flow was 115 with a pulsatility index of 3.7. There was copious bile coming from the donor bile duct. We cut the donor bile duct back for compression of the edges and controlled the peribiliary bleeding vessels with 6- 0 Prolene suture. There was a separate orifice for the cystic duct, which was widely open to prevent a mucocele formation. We then performed a npjk-np-muzp choledochocholedochostomy in an end to end fashion using a running 6-0 PDS suture. The donor duct was about half the size of the recipient duct. The difference between the 2 bile ducts was made up along the length sew, and we imbricated the front wall of the recipient bile duct. We were happy with the anastomosis. It was not on any tension, and there was no evidence of bile leak. We replaced our drain, 1 behind the right lobe of the liver and 1 overlying the charly hepatis. We ensured that the kidney was hemostatic. There was a small umbilicalhernia that was closed with a mhzujm-gi-aoogq 0 PDS suture. At this point, we then closed the fascia with a looped #1 PDS suture. Prior to completing the fascial closure, an x-ray was performed which ensured that there were no retained foreign bodies from the delayed primary closure. Hemostasis of subcutaneous tissue was obtained. It was copiouslyirrigated, and the skin was closed with jerry. At the end of the case, all sponge and needle counts were correct x2. I was scrubbed and present for the entire duration of the operation. There were no immediate complications. MD TEODORA HARMON IIIQ/AQ JOB#: [id number] * Harvey Domínguez III, MD - 10/26/2024 7:00 AM EDT Patient Name: Blair Gilbert Date: 1985 Billing #: [id number] Date of Procedure: 10/25/2024 - 10/26/2024 Diagnosis: Chronic Hepatic Failure without coma Procedure: 1. Orthotopic Liver Transplant 2. Back Bench Preparation Donor Liver 3. Temporary portocaval shunt 4. Perihepatic packing for control of hemorrhage 5. Placement of external choledochal stent 6. Temporary abdominal closure Attending surgeons: Harvey Domínguez III, MD Automotive Refinish Technician Surgeon(s): Sveta Judge MD Findings: Whole organ placed in piggyback fashion with suprahepatic cava of donor to common orifice of all three hepatic veins for IVC anastomosis. Donor main portal vein to recipient main portal vein. Donor common hepatic artery to recipient right hepatic artery. Temporary abdominal with perihepatic packingfor control of hemorrhage. Externalization of bile duct with 8 Lao pediatric feeding tube. Portal Flow Modulation No Portal vein flow - 3.4 L/min, PI 0.2 Hepatic artery flow - 115 L/min, PI 4.2 Anesthesia: GETA Blood/Fluid Products: Allogenic PRBC units: 11 Autologous Cell Saver: 6.1 L FFP: 11 Cryo:1 Platelets: 2 Cold Ischemic Time: 8 hr 30 min Warm Ischemic Time: 24 min Agonal Time (SBP<50 to start of NRP): 16 min NRP Time: 1 hr 4 min Operative Times: Cross clamp on donor: 10/25/24 @ 18:22 Incision on recipient: 10/25/24 @ 23:51 Liver taken out of ice: 10/26/24 @ 02:52 Liver reperfused: 10/26/24 @ 03:16 All incisions closed: 10/26/24 @ 05:25 Donor/Recipient Risk Characteristics DCD Donor: Yes NRP Donor: Yes Machine Perfusion: No LiverGuard Utilized: Yes Portal vein thrombosis (including partial or past PVT): No Previous liver transplant: No Previous other solid organ transplant: No Recipient on ventilator on transport to OR: No Recipient on CRRT or iHD prior to transport to OR: No Recipient on vasopressors prior to transport to OR: No Recipient in ICU prior to transport to OR: No Any previous abdominal surgery: No Prior TIPS: No Donor macrovesicular fat >30%: No Indications for Procedure: This is a 39 y.o.-year-old male who has ETOH cirrhosis decompensated by ascites (requiring twice weekly paracentesis), HE, bleeding-EV and hepatorenal syndrome with renal failure not yet requiring dialysis but meeting criteria for for simultaneous liver kidney transplantation with a MELD score of 34. A donor organ became available. This donor was ABO O and UNOSID [id number], Match Run [id number]. This was a 42-year-old donation after circulatory donor. Normothermic regional perfusion was utilized in the donor operation. Functional warm ischemia time was 16minutes and NRP time was 1 hr and 4 minutes. Initial lactate was 9.9 and terminal lactate on NRP was 5.6. Liver function tests and renal function were normal. KDPI was 20%. The donor did have risk factors for blood-borne disease transmission. All donors and living donors are tested for HIV, HBV, and HCV so the risk for undetected infections is very low, but not zero. Some donors may haverisk factors for acute HIV, HBC and HCV infection related to recent social history of injection drug abuse, risky sexual behavior, incarceration or unknown history within the past 30 days. After transplantation, all transplant recipients will be tested for HIV, HBV, and HCV infection. If transmission occurs, there are effective therapies available. This donor has the following positive serologies: None. I personally confirmed that the donor ABO was O and the patient was ABO O, which are compatibles blood types, prior to implantation in the recipient. Patient was induced with Solu-Medrol. Virtual crossmatch was negative. Procedure: Back bench preparation of donor liver allograft The organ was examined and verified that it was indeed a blood group O organ and was intended for this recipient. This was verified with the operating room team. The liver was then placed in chilled [employer] solution. The liver was well flushed, was soft and had sharp edges - it was a suitable graft. The top cava was freed of diaphragm and pericardium, ligating small phrenic vein branches as we removed this tissue. The adrenal glad was removed from the lower cava and the adrenal vein ligated. The portal vein was identified and dissected free of the investing tissue until the bifurcation of the portal vein was evident. Branches of the portal vein were identified and ligated with ties and clips. Attention was then turned to the arterial dissection. The common hepatic artery was cleaned to the level of the gastroduodenal artery. The splenic artery and left gastric artery were identified and preserved on the celiac axis. The branches from the artery were controlled with clips and ties. The gallbladder was removed in the standard top-down fashion and the cystic duct and artery controlled with clips and ties. The liver was reemerged and preservation solution until ready for implantation Hepatectomy The patient brought to the operating room table. After induction of general endotracheal anesthesia, appropriate lines were placed sterilely. Right arm was tucked and left are was left out and the abdomen and chest was prepped and draped in sterile fashion. Timeout was performed and perioperative antibiotics were confirmed as being given. The abdomen was entered through a long right sided hockey-stick incision with the lateral component extending down to just above the ASIS to facilitate implantation of the kidney through a single incision. There was a massive recanalized umbilical vein that was encountered and was divided with a vascular load of the Endo CHAPINCITO stapler. Ascites was encountered, cultured and removed totalling several liters. The Smith retractor was placed and the liver was exposed. It was clearly cirrhotic. There was no evidence of metastatic cancer. No other abnormalities were found in the abdomen. The liver was then mobilized by taking down the right and left triangle ligaments. The field was very oozy. The bare of the liver was taken all the way down to the levelof the hepatic veins. The right lobe of the liver was then mobilized from the retroperitoneum exposing the lateral border of the IVC. We then turned our attention to the dissection of the charly hepatis. We incised the overlying peritoneum and then identified and ligated the cystic duct. The bile duct was then exposed and divided. The left and right hepatic arteries were dissected free and ligatedwith clips. Finally the portal vein was exposed and freed from the investing tissue down to the level of the pancreas. There was no evidence of portal vein thrombus. We then turned our attention to the piggyback freeing the liver from the IVC by ligating short hepatic veins using either suture ligature or the ligasure. The liver was mobilized from the right to the left off the cava. We ensure that the caudate lobe was mobilized off the cava as well. The portal vein was divided to facilitate theremainder of the mobilization of the liver off of the inferior vena cava. The groove between the right and middle/left hepatic vein confluence was dissected out. The left phrenic vein was circled anddivided where it inserts into the left hepatic vein. Separate clamps were placed on the right hepatic vein as well as the middle/left hepatic veins. The veins were cut close the liver and liver was a from the field. We elected to perform a temporary portocaval shunt to decompress the portal system as the field was quite bloody. The infrahepatic portion of the IVC was cleared. The portal vein was divided close to the liver between clamps. A partial longitudinal clamp was placed on the IVC and a venotomy was made. The portal vein was anastomosed in an end to side fashion to the IVC using a 6-0 prolene suture. Following completion of the anastomosis the clamps were released and there appeared to be good flow through the shunt. Surgical hemostasis was performed after completion of the shunt. When the allograft was ready we positioned our clamps across all 3 hepatic veins for a partial caval clamp. He was on high dose pressors at this point but tolerated the test clamp without issue. After confirming stability with anethesia, the orifice of the right hepatic vein was joined to the common orifice of the middle/left hepatic vein confluence. Liver Transplant Implantation The liver was then brought to the field. The suprahepatic cava of the donor was anastomosed to the common orifice of the right/middle/left hepatic veins using 4-0 prolene in a running fashion with a stay stitch placed along the posterior wall to help with alignment. After completion of the outflow anastomosis, a Nepali clamp was placed across the donor suprahepatic cava and the Klitmann clamp wasremoved from the recipient IVC to increase venous return. The portocaval shunt was then taken down with a vascular load of the Endo CHAPINCITO stapler. The portal vein was then flushed with heparinized saline. The portal vein was then anastomosed to the recipient portal vein. We flushed the portal vein and the flow was strong and adequate. No sentinel clot was evacuated. We made sure to keep the alignment perfect. This was done with a 6-0 Prolene in a running fashion. A growth factor was left. Patientreceived normal anhepatic agents such as bicarbonate, calcium and mannitol. A blood flush was performed through the infrahepatic cava and the infrahepatic cava was controlled with two 0 silk ties. The patient tolerated reperfusion well. The liver reperfused quite nicely. Areas of bleeding were thencontrolled along the diaphragm and the right retroperitoneum. Reperfusion was complete without incident. The hepatic artery was then reconstructed. We dissected the hepatic artery back to the right left bifurcation. This dissection was a little challenging as he had several small varices within theporta hepatis. There was a large replaced right hepatic artery that was dissected out instead. An anastomosis was then constructed with a 7-0 prolene in an interrupted fashion between the donor common hepatic artery and the replaced right hepatic artery of the recipient. There was good pulsatile jael w through GDA and splenic artery following release of the clamp, which were subsequently clipped. There was a good thrill and bruit in the artery. I used a Doppler to confirm flow in the artery and the left side as well. We then used the Doppler to make sure there was flow in the liver itself. The portal vein and hepatic artery flows were then measured with the Talkspace device. The portal flow was 3.4 L/min and the hepatic artery flow was 115 mL/min. An intraoperative doppler ultrasound of the liver was then performed and confirmed normal and appropriate portal venous and hepatic artery waveforms on the right and left of the liver. The outflow was assessed as well and there were normal waveforms in the right, middle and left hepatic veins. The donor liver allograft gallbladder had been removed on the back table. Surgical hemostasis was performed. The liver was well-perfused and soft buthe was on high-dose pressors. Methylene blue was given. The field was temporarily packed while anesthesia gave tach guided resuscitation. We plan to implant the kidney in a delayed fashion. Hemostasis in the field had significantly improved but he still was on a high dose pressors. At this point, we elected to do a temporary abdominal closure. An 8 Lao pediatric feeding tube was brought through the right abdominal wall and placed into the donor common bile duct and secured with a 2-0 silk tie. There was copious bile coming from the liver. We then performed perihepatic packing for control of hemorrhage with 5 Ray-Pau's as well as 2 laparotomy pads. Two #18 round Blair channel drains were placed within the peritoneal cavity, 1 behind the liver and 1 line overlying the charly hepatis. We then did a temporary abdominal closure using 2-0 nylon to close the skin only the fascia was left open. The patient was left intubated and sent to the SICU for recovery. Sponge and needle counts were correct x 2 with the exception of those left behind as internal packing. I was present for the entireprocedure. * Sveta Judge MD - 10/25/2024 11:51 PM EDT LIVER TRANSPLANT Brief Op Note Blair Gilbert 10/25/2024 - 10/26/2024 Pre-op Diagnosis: Alcoholic cirrhosis of liver (CMS-HCC) Post-op Diagnosis: same Procedure(s): LIVER TRANSPLANT Surgeon(s): MD Sveta Alves III, MD Anesthesia: General Staff: Stretch Box Tender: Mak Maher RN; Marty Clark RN Scrub Person: ST Angela Resident: Thuy Leon MD cement based materials pump tender: Jose Daniel Arana RRT Estimated Blood Loss: 19 L Specimens: recipient liver/gallbladder Drains: Drain 1 Abdomen Right;Superior (Active) Number of days: Drain 2 Left;Superior (Active) Number of days: 0 IUC (Berkowitz) Triple-lumen (3-Way) 18 Fr. (Active) Number of days: 1 [REMOVED] NG/OG Tube Nasogastric Left nostril (Removed) Number of days: 3 [REMOVED] Rectal Pouch (Removed) Number of days: 0 [REMOVED] Rectal Tube With balloon (Removed) Number of days: 24 [REMOVED] IUC (Berkowitz) Temperature probe 16 Fr. (Removed) Number of days: 5 Surgery Information: -UNOS#: [id number] -ABO: O to O -Recipient: SLK candidate -Donor: young DCD NRP -CIT: 9 hours -WIT: 24 min -Anatomy: *IVC: piggyback *Portal: end to end without thrombectomy *Artery: right hepatic artery to branch patch of splenic and hepatic proper *Bile duct: incomplete -Drain: 2 standard drains with feeding tube for bile -Abdominal packin raytecs and 2 laps Remaining intubated to have a staged kidney transplant There were no complications unless listed below. SVETA JUDGE MD Date: 10/26/2024 Time: 5:47 AM documented in this encounter Consult Notes * Elle Gomez RN - 10/31/2024 1:19 PM EDTAssociated Order(s): IP CONSULT TO PASTRYCOOK'S ASSISTANT [facility] Transplant Discharge Education Note Assessment: Received referral for education from primary team. Pt is s/p liver transplant. RN met with Mr. Gilbert and his dad sitting in chair at bedside to educate on Blood Glucose monitoring and insulin therapy prior to discharge. Educational Intervention: Reviewed and provided Pt with written educational materials covering the following topics: relationship between illness/pain/steroids and glucose levels, signs/symptoms and treatment of hyper/hypoglycemia, how and when to test with glucometer, insulin types and rationale for use, how to dial and inject insulin using insulin pens, how to draw up and inject using insulin syringe/vial, current insulin regimen. Educated on normal BG values, when to test, and how to record BG values. Pt was instructed on how and when to test with glucose meter (pt declined to go over this skill at this time).and insulin pen use. Pt also instructed on insulin regimen. Pt did well with skills. Pt verbalized understanding of information discussed.Educator answered all questions. Discharge Regimen: HDSSI Provided pt with written insulin regimen for reference. Education Outcome: 3 - Comprehends albardao points Elle Gomez, OLIVE, RN, NPD- Diabetes Education Office [phone] Schedule: M-F 8:00am-4:30pm * Ben Weiss RD - 10/27/2024 4:06 PM EDTAssociated Order(s): IP CONSULT TO NUTRITION SERVICES; IP CONSULT TO NUTRITION SERVICES TXP - Initial [facility] Medical Nutrition Therapy Reason(s) for Completion: Physician/Nursing Referral - Liver TXP post-op admission Diet Order/Nutrition Support: Diet/Nutrition Orders Diet NPO Except for: except sips of clears Frequency: Effective Now Number of Occurrences: Until Specified Order Questions: Except for except sips of clears Pertinent Information: Blair Gilbert is a 39 y.o. Male with history of end stage liver disease secondary to alcohol cirrhosis who was directly admitted for simultaneous liver and kidney transplantation. Pt seen for initial nutrition evaluation. Intubated this am. Extubated earlier this afternoon. Willfollow-up with diet education prior to d/c. Following daily with txp team. Glucose: 111-134 x 24 hours. I/O: +23.2L net volume. Last BM Date: (SAFETY COUNSELOR). Admit Weight: 270 lb (122.5 kg) Current Weight: (!) 270 lb (122.5 kg) Pertinent Labs: Recent Labs 10/26/24164110/27/24 0013 10/27/24 1440 WBC 10.0 5.0 5.8 HGB 10.5* 8.5* 7.5* HCT 30.2* 23.9* 21.5* PLT 48* 35* 50* Recent Labs 10/26/24164110/27/24 0013 10/27/24 0800 NA 142 141 142 K 3.3* 3.2* 3.0* CL 109 109 109 CO2 23 21 21 BUN 63* 64* 59* CREATININE 2.85* 2.58* 2.54* GLUCOSE 127* 126* 111* CALCIUM 8.9 8.9 9.1 MG 2.0 1.8 1.8 PHOS 4.4 5.3* 5.5* Recent Labs 10/26/24164110/27/24 0013 10/27/24 0800 AST 374* 157* 88* ALT 458* 261* 149* BILITOT 2.3* 1.6* 1.3 BILIDIRECT 1.85* 1.17* 0.93* ALKPHOS 39 26* 26* ALBUMIN 3.0* 3.0* 2.8* 2.8* 3.0* 3.0* Recent Labs 10/26/24164110/27/24 0013 10/27/24 0816 INR 1.7* 1.5* 1.2* PROTIME 20.3* 18.6* 16.2* Recent Labs 10/27/24 0800 HGBA1C 5.0 Past Medical History: Diagnosis Date Alcoholic cirrhosis [...] Location: CARDIAC CATH LABS; Service:Cath; Laterality: N/A; LIVER-KIDNEY TRANSPLANT N/A 10/25/2024 Procedure: LIVER TRANSPLANT; Surgeon: Harvey Domínguez III, MD; Location: OR; Service: Transplant; Laterality: N/A; Scheduled Meds: acetaminophen 15 mg/kg Intravenous Q8H cefTRIAXone (ROCEPHIN) IVPB 2 g Intravenous Q12H And AMPicillin IVPB 1 g Intravenous 4 times per day eye ointment Both Eyes BID heparin 5,000 Units Subcutaneous 3 times per day [START ON 10/28/2024] methylPREDNISolone sod suc(PF) 125 mg Intravenous Once Followed by [START ON 10/29/2024] methylPREDNISolone sod suc(PF) 60 mg Intravenous Once Followed by [START ON 10/30/2024] methylPREDNISolone sod suc(PF) 50 mg Intravenous Once Followed by [START ON 10/31/2024] predniSONE 40 mg Oral Once Followed by [START ON 11/01/2024] predniSONE 30 mg Oral Once Followed by [START ON 11/02/2024] predniSONE 25 mg Oral Once Followed by [START ON 11/03/2024] predniSONE 20 mg Oral Daily 0900 micafungin 50 mg Intravenous Q24H mycophenolate (CELLCEPT) IVPB 500 mg Intravenous BID pantoprazole (PROTONIX) IV 40 mg Intravenous DAILY 0600 tacrolimus 2 mg Oral BID Continuous Infusions: insulin regular in 0.9 % sodium chloride 2.5 Units/hr (10/27/24 1001) norepinephrine 2 mcg/min (10/27/24 1416) sodium chloride 0.45% (1/2 NS) 231 mL/hr (10/27/24 1057) sodium chloride 0.9 % Stopped (10/27/24 0252) sodium chloride 0.9 % 100 mL/hr (10/27/24 1403) vasopressin 0.03 Units/min (10/27/24 1000) PRN Meds:dextrose 10% in water OR dextrose 10% in water, glucose, HYDROmorphone OR HYDROmorphone, sodium chloride 0.45% (05/15 NS) Vital Signs: Temp: [98.2 ??F (36.8 ??C)-99.8 ??F (37.7 ??C)] 98.9 ??F (37.2 ??C) Heart Rate: [76-101] 88 Resp: [0-18] 8 BP: (91-122)/(31-75) 97/48 Arterial Line BP: (89-140)/(28-54) 104/33 FiO2: [26 %-100 %] 26 % Skin Integrity: Abdominal incision Yusuf Scale Score: 14 Edema: RLE Edema: Very deep pitting, indentation lasts a long time LLE Edema: Very deep pitting, indentation lasts a long time GI: Abdomen Inspection: Soft, Distended, Surgical Scar Bowel Sounds (All Quadrants): Hypoactive Palpation/Percussion: Soft, Tenderness Passing Flatus: No Ventilator Settings: Vent Mode: Spont PS/PEEP FiO2: [26 %-100 %] 26 % S RR: [0-16] 0 S VT: [500 mL-550 mL] 550 mL PEEP/CPAP: [0 cm H20-6 cm H20] 5 cm H20 Potential Nutrition Related Factor(s): Skin Integrity: Abdominal surgical incision Social needs that may impact access to food: none Food Allergies/Intolerances: none Cultural Requests: none Anthropometrics: Ht Readings from Last 1 Encounters: 10/26/24 6' 4 (1.93 m) Wt Readings from Last 1 Encounters: 10/25/24 (!) 270 lb (122.5 kg) Body mass index is 32.87 kg/m??. Usual Weight: ~250 lbs Desirable Weight: 205 lbs - based on BMI 25 kg/m^2 Weight History: Wt Readings from Last 10 Encounters: 10/25/24 (!) 270 lb (122.5 kg) 10/10/24 (!) 263 lb 8 oz (119.5 kg) 09/05/24 (!) 262 lb 9.6 oz (119.1 kg) 09/02/24 (!) 258 lb (117 kg) 08/17/24 (!) 242 lb 11.2 oz (110.1 kg) 07/28/24 (!) 245 lb (111.1 kg) Estimated Nutrition Needs: Based on DBW of 93.1 kg Kcals/day: 7895-2552 (25-30 kcals/kg) Protein g/day: 140-190 (1.5-2.0 g/kg) - DBW Carbohydrates g/day: 45-55% of total calories Fluid ml/day: 1 ml/kcal or per MD *Needs based on clinical status at this time and subject to change. Nutrition Diagnosis Problem: Increased kcal/protein needs Related To: Increased demand for nutrients As Evidenced By: Recent liver transplant, medically complex Nutrition Diagnosis Problem: Food- and nutrition-related knowledge deficit Related to: Exposure to new information As evidenced by: Recent liver transplant and subsequent need for medical nutrition therapy education Recommended Interventions: Monitor PO Intake/Tolerance and Education/Counseling: Food Safety Goals: Total energy intake improved as evidenced by PO intake at least 75% of meals/supplements/snacks within 1-3 days and Voices/demonstrates knowledge of Food Safety education/counseling Coordination of Nutrition Care: This information has been communicated to the transplant multidisciplinary team Follow up: per policy while inpatient. If patient is discharged, dietitian will be available for consultation on an as needed basis as identified by the multidisciplinary team. Recommendation(s) to Physician: Regular diet as medically able ONS w/ meals Kingston Weiss RD, LD Clinical Dietitian - Solid Organ Transplant Contact via [employer] Chat * Lavell Kramer MD - 10/27/2024 11:09 AM EDTAssociated Order(s): INPATIENT CONSULT TO TRANSPLANT INFECTIOUS DISEASES Infectious Disease Consultation Patient: Blair Gilbert CSN: [id number] Assessment & Plan 39 y.o. M s/p SLK with prolonged Qtc on routine EKG Prophylactic abx - CMV R+, will need 3 months VGCV - will need 6 months PJP proph, ideally with Bactrim SS daily - needs 1 month antifungal prophylaxis - higher order azoles are typically less effective for Keesha, so I would stop Isavuconazole - for now, start proph Micafungin 50mg IV daily - monitor daily EKGs off Isav (which may have falsely decreased his Qtc) - if Qtc remains normal off Isav, could consider rechallenging with Fluconazole as his proph - if Qtc prolongs again, could consider weekly Rezafungin at d/c to complete the month of proph 2. Leukocytosis, low grade fever - observe for now - operative cx's pending - blood cx's if febrile Lavell Kramer MD [phone] Chief Complaint Long Qtc History of Present Illness 39 y.o. 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 OLT on 10/25, DDKT 10/26. In SICU now, pressors already off. Remains intubated and lightly sedated. Doing well from a txp standpoint, had a single low grade temp too 100.2. Found to have prolonged Qt on most recent EKG to 616. Repeat EKG today was QTc 337. He had received 1 dose Fluc on 10/25 and doses Isav 10/26 and this AM. He was on Cipro pre txp. Leukocytosis janneth txp, now resolved. Consulted for janneth-op abx. Review of Systems ROS Past Medical History Past Medical History: Diagnosis Date Alcoholic cirrhosis of liver (CMS-HCC) Esophageal varices (CMS-HCC) Hepatorenal syndrome (CMS-HCC) Hypertension Other hyperlipidemia 07/26/2024 Renal cell carcinoma (CMS-HCC) Thrombocytopenia (CMS-HCC) Thyroid disease Past Surgical History Past Surgical History: Procedure Laterality Date ESOPHAGOGASTRODUODENOSCOPY N/A 10/10/2024 Procedure: EGD; Surgeon: Lino Soto MD; Location: ENDOSCOPY; Service: Gastroenterology; Laterality: N/A; LEFT HEART CATH N/A 10/14/2024 Procedure: Left Heart Cath; Surgeon: Irving Matta MD; Location: CARDIAC CATH LABS; Service:Cath; Laterality: N/A; Family History History reviewed. No pertinent family [...] Strain: Low Risk (07/09/2024) Received from [facility] Overall Financial Resource Strain (CARDIA) [...] No Physical Activity: Unknown (07/14/2024) Received from [facility] Exercise Vital Sign Days of Exercise per Week: Patient unable to answer Minutes of Exercise per Session: Not on file Stress: Patient Unable To Answer (07/14/2024) Received from [facility] [place] of Occupational Health - Occupational Stress Questionnaire Feeling of Stress : Patient unable to answer Social Connections: Patient Unable To Answer (07/14/2024) Received from [facility] Social Connection and Isolation Panel [NHANES] [...] answer Intimate Partner Violence: Not At Risk (10/25/2024) Humiliation, Afraid, Rape, and Kick questionnaire Fear of Current or Ex-Partner: No Emotionally Abused: No Physically Abused: No Sexually Abused: No Housing Stability: Low Risk (10/06/2024) Housing Stability Vital Sign Unable to Pay for Housing in the Last Year: No Number of Times Moved in the Last Year: 0 Homeless in the Last Year: No Medications Inpatient Meds: Scheduled: acetaminophen 15 mg/kg Intravenous Q8H cefTRIAXone (ROCEPHIN) IVPB 2 g Intravenous Q12H And AMPicillin IVPB 1 g Intravenous 4 times per day eye ointment Both Eyes BID heparin 5,000 Units Subcutaneous 3 times per day isavuconazonium sulfate (CRESEMBA) 372 mg in sodium chloride 0.9 % 250 mL IVPB 372 mg Intravenous Q8H magnesium sulfate 4 g Intravenous Once [START ON 10/28/2024] methylPREDNISolone sod suc(PF) 125 mg Intravenous Once Followed by [START ON 10/29/2024] methylPREDNISolone sod suc(PF) 60 mg Intravenous Once Followed by [START ON 10/30/2024] methylPREDNISolone sod suc(PF) 50 mg Intravenous Once Followed by [START ON 10/31/2024] predniSONE 40 mg Oral Once Followed by [START ON 11/01/2024] predniSONE 30 mg Oral Once Followed by [START ON 11/02/2024] predniSONE 25 mg Oral Once Followed by [START ON 11/03/2024] predniSONE 20 mg Oral Daily 0900 mycophenolate (CELLCEPT) IVPB 500 mg Intravenous BID pantoprazole (PROTONIX) IV 40 mg Intravenous DAILY 0600 Continuous: fentanyl (SUBLIMAZE) IV infusion 150 mcg/hr (10/27/24 1000) insulin regular in 0.9 % sodium chloride 2.5 Units/hr (10/27/24 1001) norepinephrine 3 mcg/min (10/27/24 0847) propofol 10 mcg/kg/min (10/27/24 1000) sodium chloride 0.45% (1/2 NS) 202 mL/hr (10/27/24 1003) sodium chloride 0.9 % Stopped (10/27/24 0252) sodium chloride 0.9 % Stopped (10/27/24 0252) sodium chloride 0.9 % Stopped (10/27/24 0252) sodium chloride 0.9 % Stopped (10/27/24 0901) vasopressin 0.03 Units/min (10/27/24 1000) PRN:dextrose 10% in water OR dextrose 10% in water, fentanyl (SUBLIMAZE) IV infusion AND fentaNYL, glucose, HYDROmorphone OR HYDROmorphone, sodium chloride 0.45% (1/2 NS) Vital Signs Temp: [98.2 ??F (36.8 ??C)-100.2 ??F (37.9 ??C)] 99 ??F (37.2 ??C) Heart Rate: [76-116] 87 Resp: [0-21] 16 BP: (98-143)/(46-75) 100/48 Arterial Line BP: (90-140)/(28-63) 128/41 FiO2: [30 %-100 %] 35 % Physical Exam Physical Exam Constitutional: Appearance: He is ill-appearing. Comments: intubated HENT: Head: Normocephalic and atraumatic. Eyes: General: No scleral icterus. Conjunctiva/sclera: Conjunctivae normal. Cardiovascular: Rate and Rhythm: Normal rate and regular rhythm. Pulmonary: Breath sounds: Rales present. No wheezing. Abdominal: General: There is distension. Comments: Txp incision dressed Musculoskeletal: General: Swelling present. No deformity. Skin: General: Skin is warm. Coloration: Skin is not jaundiced. Neurological: Mental Status: He is alert. Comments: Intubated, lightly sedated Laboratory Data Lab 10/27/24 0013 10/26/24 1642 10/26/24 1048 10/26/24 0610 WBC 5.0 10.0 17.3* 14.8* HEMOGLOBIN 8.5* 10.5* 12.8* 12.7* HEMATOCRIT 23.9* 30.2* 37.2* 35.9* MEAN CORPUSCULAR VOLUME 88.5 87.7 88.3 89.0 PLATELETS 35* 48* 109* 107* Lab 10/27/24 0800 10/27/24 0013 10/26/24 1642 SODIUM 142 141 142 POTASSIUM 3.0* 3.2* 3.3* CHLORIDE 109 109 109 CO2 21 21 23 BUN 59* 64* 63* CREATININE 2.54* 2.58* 2.85* EGFR 32 31 28 GLUCOSE 111* 126* 127* CALCIUM 9.1 8.9 8.9 PHOSPHORUS 5.5* 5.3* 4.4 Lab 10/27/24 0800 10/27/24 0013 10/26/24 1642 10/26/24 1048 ALT 149* 261* 458* 736* AST 88* 157* 374* 872* ALK PHOS 26* 26* 39 56 BILIRUBIN TOTAL 1.3 1.6* 2.3* 5.9* BILIRUBIN DIRECT 0.93* 1.17* 1.85* 4.74* ALBUMIN 3.0* 2.8* 3.0* 2.5* ALBUMINKID 3.0* 2.8* 3.0* 2.5* No results found for: CRP No results found for: ESR Lab 10/25/242017 COLOR, URINE Yellow CLARITY Clear PROTEIN UA Negative PH UA 6.0 SPECIFIC GRAVITY, URINE 1.010 GLUCOSE UA Negative BLOOD UA Negative LEUKOCYTES UA Negative NITRITE UA Negative BILIRUBIN UA Negative UROBILINOGEN UA <2.0 Diagnostic Studies US ABDO RIGHT UPPER QUADRANT 1. Small area of parenchymal heterogeneity in the liver transplant near the falciform ligament fissure, possibly representing fat, small intraparenchymal hematoma, or hemostatic material. This can bereassessed on follow-up. The liver allograft otherwise appears normal. 2. Small volume of perihepatic free fluid. LIVER DOPPLER 1. Patent hepatic vasculature with normal directional flow. Waveforms within normal limits. US kidney 1. Normal grayscale appearance of the renal transplant allograft. 2. Patent renal transplant vasculature and waveforms within normal limits. Signed: Lavell Kramer MD 10/27/2024, 10:56 AM * Caron Santos CNP - 10/27/2024 11:00 AM EDTAssociated Order(s): IP CONSULT TO RENAL Images from the original note were not included. Department of Internal Medicine Transplant Nephrology Consult Note Patient: Blair Gilbert Date of Admit: 10/25/2024 Referring physician: Harvey Domínguez III, MD Chief Complaint Direct admission for SLK Reason for Consult Co-management of SLK recipient History of Present Illness Blair Gilbert is a 39 y.o. 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 Presents as direct admission for SLK on 10/25/24. T ransplant nephrology consulted for co-management of SLK recipient. Presently seen and assessed at bedside in SICU. Intubated and sedated; requiring 2 pressors. S/p kidney transplant, washout, and bile duct reconstruction this morning; liver 10/25/24. Review of Systems EDWARD s/t sedation Past Medical History: Diagnosis Date Alcoholic cirrhosis [...] Location: CARDIAC CATH LABS; Service:Cath; Laterality: N/A; LIVER-KIDNEY TRANSPLANT N/A 10/25/2024 Procedure: LIVER TRANSPLANT; Surgeon: Harvey Domínguez III, MD; Location: OR; Service: Transplant; Laterality: N/A; History reviewed. No pertinent family history. Social History Tobacco Use Smoking status: Former Types: Cigarettes Smokeless tobacco: Current Substance Use Topics Alcohol use: Yes Comment: History of alcohol abuse, reports no use in 3 week- typically endorses use as 4 glasses ofwine a days Allergies[1] Medications Home Medications: Home Medications Medication Sig Taking? Last Dose ciprofloxacin HCl (CIPRO) 500 MG tablet Take 1 tablet (500 mg total) by mouth daily. Yes 10/24/2024 FLUoxetine (PROZAC) 20 MG capsule Take 1 capsule (20 mg total) by mouth daily. Yes 10/25/2024 at 9:00 AM folic acid (FOLVITE) 1 MG tablet Take 1 tablet (1 mg total) by mouth daily. Yes 10/24/2024 levothyroxine (SYNTHROID) 75 MCG tablet Take 1 tablet (75 mcg total) by mouth every morning before breakfast. Yes 10/25/2024 at 9:00 AM loratadine (CLARITIN) 10 mg tablet Take 1 tablet (10 mg total) by mouth daily as needed for Allergies (itching). Yes 10/25/2024 at 9:00 AM midodrine (PROAMATINE) 10 MG tablet Take 1 tablet (10 mg total) by mouth 3 times a day. Yes 10/25/2024 at 9:00 AM pantoprazole (PROTONIX) 40 MG tablet Take 1 tablet (40 mg total) by mouth every morning before breakfast. Yes 10/25/2024 at 9:00 AM potassium chloride (KLOR-CON M20) 20 MEQ tablet Take 2 tablets (40 mEq total) by mouth daily. Yes 10/24/2024 sodium bicarbonate 650 MG tablet Take 2 tablets (1,300 mg total) by mouth 3 times a day. Yes 10/25/2024 at 9:00 AM thiamine HCl (VITAMIN B-1) 100 MG tablet Take 1 tablet (100 mg total) by mouth daily. Yes 10/24/2024t 9:00 PM ursodioL (ACTIGALL) 300 mg capsule Take 1 capsule (300 mg total) by mouth 2 times a day. Yes 10/25/2024 at 9:00 AM zinc sulfate (ZINCATE) 50 mg zinc (220 mg) capsule Take 1 capsule (220 mg total) by mouth daily. Yes 10/25/2024 at 9:00 PM acetaminophen (TYLENOL) 325 MG tablet Take 3 tablets (975 mg total) by mouth every 8 hours. alcohol swabs PadM Use as instructed. apixaban (ELIQUIS) 2.5 mg Tab Take 1 tablet (2.5 mg total) by mouth 2 times a day. aspirin 81 MG chewable tablet Chew 1 tablet (81 mg total) by mouth daily. atovaquone (MEPRON) 750 mg/5 mL suspension Take 10 mLs (1,500 mg total) by mouth daily for 30 doses. blood sugar diagnostic (GLUCOSE BLOOD) Strp Use to test blood sugar up to 4 times a day. blood-glucose meter (TRUE METRIX GLUCOSE METER) Mis Use to test blood sugar up to 4 times a day. DEXCOM G7 PROP WORKER Misc Use reader as directed. DEXCOM G7 SENSOR Radha Use 1 sensor as directed every 10 days. ergocalciferol (ERGOCALCIFEROL) 1,250 mcg (50,000 unit) capsule Take 1 capsule (50,000 Units total)by mouth once a week. famotidine (PEPCID) 20 MG tablet Take 1 tablet (20 mg total) by mouth 2 times a day. fluconazole (DIFLUCAN) 200 MG tablet Take 1 tablet (200 mg total) by mouth daily for 30 days. insulin aspart, niacinamide, (FIASP FLEXTOUCH U-100 INSULIN) 100 unit/mL (3 mL) InPn Administer insulin with meals per sliding scale: Blood glucose 150-199 mg/dL =2 units, Blood glucose 200-249 mg/dL=4 units, Blood glucose 250-299 mg/dL =7 units, Blood glucose 300-349 mg/dL =10 units, Blood glucose greater than 349 mg/dL = 12 units insulin NPH isoph U-100 human 100 unit/mL (3 mL) InPn Inject 5 Units subcutaneously in the morning and at bedtime. lancets (ACCU-CHEK SOFTCLIX LANCETS) [facility] [place] to test blood sugar up to 4 times a day. methocarbamoL (ROBAXIN) 500 MG tablet Take 1 tablet (500 mg total) by mouth 3 times a day. mycophenolate (CELLCEPT) 250 mg capsule Take 2 capsules (500 mg total) by mouth 2 times a day. naloxone (NARCAN) 4 mg/actuation [place] Apply 1 spray in one nostril if needed. Call 911. May repeat dose in other nostril if no response in 3 minutes. pen needle, diabetic 32 gauge x 5/32 Ndle For use with insulin pen. Use as instructed. polyethylene glycol (GLYCOLAX) 17 gram/dose powder Mix one capful (17 grams) in 8 ounces of liquid and drink by mouth daily as needed (Constipation). predniSONE (DELTASONE) 5 MG tablet Take 4 tablets (20 mg total) by mouth daily. senna-docusate (SENNOSIDES-DOCUSATE SODIUM) 8.6-50 mg per tablet Take 1 tablet by mouth at bedtime as needed for Constipation. sulfamethoxazole-trimethoprim (BACTRIM) 400-80 mg per tablet Take 1 tablet by mouth daily. tacrolimus (PROGRAF) 1 MG capsule Take 10 capsules (10 mg total) by mouth 2 times a day. Use as directed valGANciclovir (VALCYTE) 450 mg tablet Take 1 tablet (450 mg total) by mouth daily. Inpatient Meds: acetaminophen 15 mg/kg Intravenous Q8H cefTRIAXone (ROCEPHIN) IVPB 2 g Intravenous Q12H And AMPicillin IVPB 1 g Intravenous 4 times per day eye ointment Both Eyes BID heparin 5,000 Units Subcutaneous 3 times per day [START ON 10/28/2024] methylPREDNISolone sod suc(PF) 125 mg Intravenous Once Followed by [START ON 10/29/2024] methylPREDNISolone sod suc(PF) 60 mg Intravenous Once Followed by [START ON 10/30/2024] methylPREDNISolone sod suc(PF) 50 mg Intravenous Once Followed by [START ON 10/31/2024] predniSONE 40 mg Oral Once Followed by [START ON 11/01/2024] predniSONE 30 mg Oral Once Followed by [START ON 11/02/2024] predniSONE 25 mg Oral Once Followed by [START ON 11/03/2024] predniSONE 20 mg Oral Daily 0900 micafungin 50 mg Intravenous Q24H mycophenolate (CELLCEPT) IVPB 500 mg Intravenous BID pantoprazole (PROTONIX) IV 40 mg Intravenous DAILY 0600 tacrolimus 2 mg Oral BID Continuous Infusions: fentanyl (SUBLIMAZE) IV infusion 150 mcg/hr (10/27/24 1000) insulin regular in 0.9 % sodium chloride 2.5 Units/hr (10/27/24 1001) norepinephrine 2 mcg/min (10/27/24 1416) propofol 10 mcg/kg/min (10/27/24 1000) sodium chloride 0.45% (1/2 NS) 231 mL/hr (10/27/24 1057) sodium chloride 0.9 % Stopped (10/27/24 0252) sodium chloride 0.9 % 100 mL/hr (10/27/24 1403) vasopressin 0.03 Units/min (10/27/24 1000) Physical Examination Patient Vitals for the past 4 hrs: BP Temp Pulse Resp SpO2 10/27/24 1455 -- -- -- -- 100 % 10/27/24 1425 97/48 -- 88 8 97 % 10/27/24 1415 (!) / -- -- -- 100 % 10/27/24 1414 99/50 -- -- -- -- 10/27/24 1400 99/57 -- 89 13 100 % 10/27/24 1310 -- -- 91 (!) 7 100 % 10/27/24 1300 103/53 -- 84 (!) 6 100 % 10/27/24 1235 -- -- -- -- 100 % 10/27/24 1200 106/50 98.9 ??F (37.2 ??C) 97 (!) 6 100 % Wt Readings from Last 3 Encounters: 10/25/24 (!) 270 lb (122.5 kg) 10/10/24 (!) 263 lb 8 oz (119.5 kg) 09/05/24 (!) 262 lb 9.6 oz (119.1 kg) Physical Exam Vitals reviewed. Constitutional: General: He is not in acute distress. Interventions: He is sedated and intubated. Cardiovascular: Rate and Rhythm: Normal rate and regular rhythm. Pulmonary: Effort: No respiratory distress. He is intubated. Comments: Mechanically ventilated Abdominal: Comments: +drains, incision covered with dressing Genitourinary: Comments: +Berkowitz with blue-tinged urine Musculoskeletal: Right lower leg: Edema present. Left lower leg: Edema present. Skin: General: Skin is warm and dry. Coloration: Skin is jaundiced. Neurological: Comments: EDWARD Psychiatric: Comments: EDWARD Laboratory Data Reviewed in EMR Diagnostic Studies Reviewed in EMR Assessment Blair Gilbert is a pleasant 39 y.o. 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 Presents as direct admission for SLK on 10/25/24. Medical problems being addressed in this encounter include the following: CKD IIIb/IV: - Presumed s/t HRS - [employer] Switchboard Operator: Yovanny Curran at [facility] Allograft Function: S/p SLK 10/25- (kidney preemptive) - OLT 10/25-. EBL 19 L. Blood: 11 pRBC, 11 FFP, 2 plts, 1 cryo. Cell Saver 6.1 L. IVF: 9 L crystalloid. Pressors: Levo, Vaso, Epi, and methylene blue. - DDKT, washout, and bile duct reconstruction 10/27/24. cPRA 63 as of 10/15/24. DCD - NRP. KDPI 20. tCr 0.2. Kidney CIT 33:17 and WIT 27 min. Virtual and flow crossmatches negative. KT 10/27/24: WNL UOP: 3,075 mL B Renal Function: Cr: 2.54 Bun: 59 Pre-op Cr: 3.87 Electrolytes: Na: 142 K: 3.0 Cl: 109 Ma.8 Ca: 9.1 Phos: 5.5 Immunosuppression: Per transplant surgery. Current IS: Pred taper, MMF 500 mg BID, and tacrolimus 2 mg BID Infectious disease/ppx: Relevant serologies: CMV D-/R+, EBV D+/R+, Toxo D-/R- BMD: Ca: 9.1 PO4: 5.5 Alb: 3.0; 3.0 PTH: 36.0 on 10/25/2024 Vit D: 7.1 on 10/08/2024 Acid/base electrolytes: Anion Gap: 12 Bicarb: 21 Hemodynamics / Cardiovascular Status: Goal <130/80 BP: 97/48 Volume Status: Intake/Output Summary (Last 24 hours) at 10/27/2024 1549 Last data filed at 10/27/2024 1500 Gross per 24 hour Intake 25667.28 ml Output 5950 ml Net 6403.28 ml Heme/Anemia: WBC: 5.8 Goal HgB 10-12 mg/dL Hgb: 7.5 Plt 50 Iron: 128 on 10/25/2024 Ferritin 623.2 on 10/25/2024 TIBC: SEE COMMENT on 10/25/2024 % Iron Saturation: SEE COMMENT on 10/25/2024 [id number]: No results found for requested labs within last 3600 days. on No results found for requested labs within last 3600 days. Folate: No results found for requested labs within last 3600 days. on No results found for requested labs within last 3600 days. LDH: 102 on 10/08/2024 Haptoglobin: <30 on 10/08/2024 Bilirubin, Direct: No results found for requested labs within last 3600 days. on No results found for requested labs within last 3600 days. Bilirubin, Indirect: No results found for requested labs within last 3600 days. on No results foundfor requested labs within last 3600 days. General recommendations: - Monitor urine output closely, strict I/O, daily weights. - Avoid nephrotoxins (NSAIDs, NIKKI-I, ARB, Contrast dye) - Monitor renal panel with magnesium and phosphorus levels. - Renally dose all medications. - Avoid supratherapeutic FK levels. Plan - Monitor renal function. No indications for SHIPS OR BARGES LOADER. Good UOP - Noted KT US WNL - IS per transplant surgery - PPX not yet started - Monitor CBC Thank you for allowing us to participate in the care of this patient. Discussed with consult attending. Agreed on the plan of care Please do not hesitate to give us a call for any questions. All recommendations are preliminary until attending attestation. Lauren Santos, DNP, ABSORPTION PLANT OPERATOR, SALVAGER- Transplant Nephrology [phone] Preferred contact: secure chat [1] Allergies Allergen Reactions Adhesive Itching and Rash Tegaderm adhesive on Ivs, pt states its tolerable Duloxetine Other (See Comments) Became Manic Cosigned by Aaron Gonzalez MD at 10/27/2024 4:48 PM EDT Associated attestation - Aaron Gonzalez MD - 10/27/2024 4:48 PM EDT Pt seen, examined, and discussed with fellow on 10/27/2024. reviewed the chart including the labs and imaging studies. My additional comments below. 39 y.o. 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 S/p SLK 10/25-10/26 Has great UOP K repletion Aaron Gonzalez MD, MEd, FASN * Marcellus Hebert, CRAB PICKER, ANIMAL ASSISTANT - 10/27/2024 10:21 AM EDT HEALTH Care Management/Social Work Assessment Patient Information Patient Name: Blair Gilbert Hospital Day: 2 Inpatient/Observation: Inpatient Admit Date: 10/25/2024 Admission Diagnosis: Liver transplant recipient ([facility]) [Z94.4] Attending provider: Harvey Domínguez III, MD PCP: Enedina Mcguire NP Home Pharmacy: [facility] [address] [place], [place] [address] [address] [facility] [id number] [facility] [id number] Issues related to obtaining medications: N/A Payor Information Medical Insurance Coverage: Payor: [employer] / Plan: [employer] / Product Type: *No Producttype* / Secondary Payor: N/A Functional Assessment Functional Assessment Assessment Information Obtained From:: Spouse (Abdiaziz Gilbert) Current Mental Status: Intubated, Unable to Assess Mental Status Prior to Admission: Unable to Assess Mental Health History: Yes (PTSD,Generalized Anxiety Disorder) Behavioral Health Agency Involvement: ( Transplant Psych) Do you need Mental Health treatment resources?: No Patient Requests Social Work Consult?: No Substance Abuse: Yes Last Substance Abuse Date: 07/09/24 Treatment History: 12 weeks of CD Treatement at Psychiatric Do you need Substance Abuse Treatment Resources?: No Social Work Consult for Substance Abuse Ordered?: No Suicide Attempts: No Activities of Daily Living: Independent Work History: Disabled, Full-time (STD) 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 Marital Status: Relative Search Completed: No Demographics Correct:: Yes Current Living Arrangements Current Living Arrangements Current Living Arrangements: Home Type of Housing: House Who do you live with?: With Family What family member?: Spouse and dog One Story or Two (check all that apply): One Story Enter the number of steps and rails to enter the residence: 0 Enter the number of steps and rails inside the residence: 0 History of Falls?: No Community Services Community Services Community Services at Home: DME, Behavioral Health ( Transplant Psych) DME Current: Shower Chair Was any abuse reported by patient?: No [place] Status & [facility] to [facility] Services Status & Connection to [facility] Services Are you a ?: No Support Systems Emergency contact: Extended Emergency Contact Information Primary Emergency Contact: Abdiaziz Gilbert (next of kin) Mobile Relation: Spouse Secondary Emergency Contact: brown gilbert Mobile Relation: Brother Support Systems Primary Caregiver: Self Marital Status: Relative Search Completed: No Demographics Correct:: Yes Next of Kin: Abdiaziz Gilbert Next of Kin Relationship: Spouse Next of Kin Assessment Information Obtained From:: Spouse (Abdiaziz Gilbert) Other Pertinent Information Per H&P documentation: Blair Gilbert is a 39 y.o. 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 SW met with spouse at bedside to complete psychosocial assessment. SW introduced self, explained role, and verified demographic information. Patient is a 39 year old male who currently resides with his spouse at their [facility] in [place]. 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 Patient's LNOK:Spouse, Abdiaziz Gilbert, Patient has no current or past history of suicidal/homicidal ideation. Patient has a history of mental health diagnoses, PTSD and Generalized Anxiety Disorder. Patient is connected with TransplantPsychiatrist and prescribed Prozac. Patient has a history of alcohol use and has completed 12 weeksof CD Treatment at [facility]. Spouse explained that he will complete a 6 month virtual program post transplant but could not recall the name of the program. Patient has no current tobacco use. No previous need or recommendation for home health care services and no previous placements at [facility] and/or inpatient rehab program. Patient has access to DME,shower chair. No involvement with community hemo-dialysis. Patient has no home O2 needs prior to hospitalization. SW provided active listening and emotional support to patient. SW will work with patient/family, medical team, and any community providers to assist in coordination of care for transitions and discharge planning. SW will provide intervention and contact based on the patient and family's needs. SW will follow-up with patient after pt/ot evaluation to discuss discharge planning. SW will continue to follow patient, communicate with medical team, and assist with discharge planning. This assessment has been reviewed with the multi-disciplinary team. Advance Directives (For Healthcare) Advance Directive: Patient has advance directive, copy not in chart Discharge Plan Met with patient to initiate discussion regarding discharge planning. Introduced self and role of case management/social work and provided contact information. Anticipated Discharge Plan: Pending PT/OT Anticipated Discharge Date: 11/03 Anticipated Transportation: Unknown at this time Patient/Family aware and taking part in the discharge plan. Patient/family educated that once post-acute care needs have been identified, a provider list applicable to the identified post-acute care needs as well as the insurance provider will be provided, and patient/family have the freedom to choose their provider(s); financial interest(s) are disclosed as appropriate. NUBIA Escalera, RONALDO Phone Number: [phone] * John Moreno MD - 10/26/2024 3:41 AM EDT SURGICAL ICU CONSULT NOTE 10/26/2024 3:41 AM Name: Blair Gilbert CSN: [id number] HPI: Blair Gilbert is a 39 y.o. male with a history HLD, RCC (s/p ablation 2022), chronic thrombocytopenia, hypothyroidism, allergies, chronic hypotension, ESLD secondary to EToH cirrhosis, c/b esophageal varices and hepatorenal syndrome, now s/p staged Simultaneous Liver Kidney Transplant. MELD 3.0: 36 at 10/26/2024 3:31 AM Calculated from: Serum Creatinine: 3.87 mg/dL (Using max of 3 mg/dL) at 10/25/2024 10:17 PM Serum Sodium: 137 mmol/L at 10/25/2024 10:17 PM Total Bilirubin: 9.1 mg/dL at 10/25/2024 10:17 PM Serum Albumin: 3.5 g/dL at 10/25/2024 10:17 PM INR(ratio): 2.4 at 10/26/2024 3:31 AM Age at listing (hypothetical): 39 years Sex: Male at 10/26/2024 3:31 AM OR Course (10/26/24): - Procedure: OLT, planned for staged DDKT tonight vs tomorrow - IVF: 9 L crystalloid - Blood Products: 11 pRBC, 11FFP, 2 platelet, 1 cryo - Vasopressors: levo, vaso, epi, methylene blue - EBL: 19L - UOP: 1.3L - Other: cell saver 6.1L - Last Hgb: 9.5 Past Medical History: Diagnosis Date Alcoholic cirrhosis [...] Location: CARDIAC CATH LABS; Service:Cath; Laterality: N/A; Home Medications Medication Sig Taking? Last Dose ciprofloxacin HCl (CIPRO) 500 MG tablet Take 1 tablet (500 mg total) by mouth daily. Yes 10/24/2024 FLUoxetine (PROZAC) 20 MG capsule Take 1 capsule (20 mg total) by mouth daily. Yes 10/25/2024 at 9:00 AM folic acid (FOLVITE) 1 MG tablet Take 1 tablet (1 mg total) by mouth daily. Yes 10/24/2024 lactulose (CHRONULAC) 10 gram/15 mL solution Take 30 mLs (20 g total) by mouth 3 times a day. Yes 10/24/2024 at 9:00 PM levothyroxine (SYNTHROID) 75 MCG tablet Take 1 tablet (75 mcg total) by mouth every morning before breakfast. Yes 10/25/2024 at 9:00 AM loratadine (CLARITIN) 10 mg tablet Take 1 tablet (10 mg total) by mouth daily as needed for Allergies (itching). Yes 10/25/2024 at 9:00 AM methocarbamoL (ROBAXIN) 500 MG tablet Take 1 tablet (500 mg total) by mouth 3 times a day. Yes 10/25/2024 at 9:00 AM midodrine (PROAMATINE) 10 MG tablet Take 1 tablet (10 mg total) by mouth 3 times a day. Yes 10/25/2024 at 9:00 AM pantoprazole (PROTONIX) 40 MG tablet Take 1 tablet (40 mg total) by mouth every morning before breakfast. Yes 10/25/2024 at 9:00 AM potassium chloride (KLOR-CON M20) 20 MEQ tablet Take 2 tablets (40 mEq total) by mouth daily. Yes 10/24/2024 rifAXIMin (XIFAXAN) 550 mg Tab tablet Take 1 tablet (550 mg total) by mouth 2 times a day. Yes 10/25/2024 at 9:00 AM sodium bicarbonate 650 MG tablet Take 2 tablets (1,300 mg total) by mouth 3 times a day. Yes 10/25/2024 at 9:00 AM thiamine HCl (VITAMIN B-1) 100 MG tablet Take 1 tablet (100 mg total) by mouth daily. Yes 10/24/2024t 9:00 PM ursodioL (ACTIGALL) 300 mg capsule Take 1 capsule (300 mg total) by mouth 2 times a day. Yes 10/25/2024 at 9:00 AM zinc sulfate (ZINCATE) 50 mg zinc (220 mg) capsule Take 1 capsule (220 mg total) by mouth daily. Yes 10/25/2024 at 9:00 PM naloxone (NARCAN) 4 mg/actuation [place] Apply 1 spray in one nostril if needed. Call 911. May repeat dose in other nostril if no response in 3 minutes. Scheduled Meds: AMPicillin IVPB 2 g Intravenous Q6H AMPicillin IVPB 2 g Intravenous Once fluconazole in sodium chloride (iso-osm) 200 mg Intravenous Once heparin 5,000 Units Subcutaneous 3 times per day Continuous: EPINEPHrine (ADRENALIN) 10 mg in sodium chloride 0.9 % 250 mL infusion 2.5 mcg/min (10/26/24 5835) insulin regular in 0.9 % sodium chloride norepinephrine 18 mcg/min (10/26/24 0313) vasopressin 0.04 Units/min (10/26/24 0244) PRN Meds: heparin (porcine) 5,000 unit/mL 10,000 Units in sodium chloride 0.9 % 1,000 mL IV infusion, lactated ringers, sodium chloride, sterile water Allergies[1] Social History Tobacco Use Smoking status: Former Types: Cigarettes Smokeless tobacco: Current Substance Use Topics Alcohol use: Yes Comment: History of alcohol abuse, reports no use in 3 week- typically endorses use as 4 glasses ofwine a days History reviewed. No pertinent family history. REVIEW OF SYSTEMS: Review of Systems conducted with patient and pertinent positives are noted in HPI. CONSTITUTIONAL General: Intubated, follows commands Temp: [97.6 ??F (36.4 ??C)] 97.6 ??F (36.4 ??C) Heart Rate: [94-102] 102 Resp: [10-13] 13 BP: (120-128)/(59-64) 120/59 FiO2: [37 %-89 %] 37 % HEENT Exam: NC/AT, pupils equal, no facial swelling A/P: - No acute issues RESPIRATORY Exam: Intubated, mechanically ventillated Ventilator Settings: FiO2: [37 %-89 %] 37 % PIP: [3 cm H2O-23 cm H2O] 20 cm H2O PEEP/CPAP: [2 cm H20-7 cm H20] 5 cm H20 O2 Device: No data found. No results for input(s): PHART , PCO2 , PO2ART , HMI7CYN , BEART in the last 72 hours. A/P: # Acute respiratory insufficiency # Acute hypoxic respiratory insufficiency - Intubated post OR secondary to transfusion, no concerns for oxygenation during case - CXR to confirm ETT placement - Vent- arrived on VC-AC - will trial SIMV - Goal wean ventilation needs - Trend ABGs as needed - Wean O2 as able for SpO2 > 92% # Chronic Allergies - Hold home claritin CARDIOVASCULAR Exam: tachycardic, regular rhythm Troponin: No results found for: TROPONINI Cardiac data: 10/09/24 - Left ventricle: The cavity size is [...] at baseline or with provocation, shows no [id number] atrial level shunt. - Pulmonary arteries: Systolic [...] of stress attained. The study is non-diagnostic. A/P: - MAP goal > 65 # Shock, Hypovolemic - Given large resuscitation during OR - Pressor need levo, vaso, epi, methylene blue bolus in OR s/p reperfusion - Wean epi first, then vaso off if levo reaches 5, restart vaso if levo up to 10, continue methylene blue fixed rate drip 24hrs - 500 albumin - MAP goal > 65 # Chronic Hypotension Home meds: midodrine 10mg TID - Hold at this time # HLD - Listed as diagnosis in medical history, not currently on treatment NUTRITION A/P: - Diet: NPO - No acute issues GASTROINTESTINAL Exam: Abdomen soft, ND, TAC Recent Labs 10/25/24 2217 ALKPHOS 144* ALT 23 AST 51* BILITOT 9.1* ALBUMIN 3.5 3.5 BILIDIRECT 4.58* PROT 5.5* A/P: # Cirrhosis # S/p OLT (piggyback) with Temp closure - Pre-op MELD 32 - Bile duct not completed - Skin whip stitched, NIA drain x2, empty q1hr - Trend LFTs, bilirubin, coags - Transplant ultrasound today # Chronic Ascites - Underwent paracentesis twice weekly pre-op - Hold home lasix, spironolactone - Albumin replacement 25% for 1L output # GERD - Home pantoprazole 40mg daily, hold - IV pantoprazole while intubated, NPO Last BM: SAFETY COUNSELOR Bowel regimen: Senna/Miralax when able Nausea: Zofran PRN FLUID/ELECTROLYTES Recent Labs 10/25/24 2217 NA 137 K 2.1* CL 100 CO2 20* BUN 74* CREATININE 3.87* CALCIUM 9.3 PHOS 5.9* GLUCOSE 114* Intake/Output Summary (Last 24 hours) at 10/26/2024 0341 Last data filed at 10/26/2024 0326 Gross per 24 hour Intake 01142 ml Output 675 ml Net 21617 ml IV Fluids: EPINEPHrine (ADRENALIN) 10 mg in sodium chloride 0.9 % 250 mL infusion, Last Rate: 2.5 mcg/min (10/26/24 2387) insulin regular in 0.9 % sodium chloride norepinephrine, Last Rate: 18 mcg/min (10/26/24 697) vasopressin, Last Rate: 0.04 Units/min (10/26/24 4874) A/P: - Goal UOP >0.5 cc/kg/hr - Strict I/Os - Manual Electrolyte Replacement - IVF NS at 75 - Renal labs per protocol Hypokalemia - Needs aggressive replacement RENAL/ Recent Labs 10/25/242216 BUN 74* CREATININE 3.87* A/P: # Hepatorenal Syndrome Baseline Cr 3.5 - Admission Cr 3.87 - Sodium bicarb 1300mg TID, hold - Labs per transplant protocol - Plan for renal transplant this admission - Makes urine at baseline - Has never required dialysis - Continue berkowitz SKIN/MUSCULOSKELETAL Exam: Warm, dry; no significant edema A/P: ADDY HEMATOLOGIC Labs: Recent Labs 10/25/24221610/25/24 2340 10/26/24 0039 10/26/24 0140 WBC 6.2 -- -- -- HGB 8.3* 6.6* 7.9* 7.4* HCT 23.7* 19.0* 23.0* 22.0* MCV 98.9 -- -- -- PLT 56* -- -- -- No results for input(s): ANTIXALMWHEP in the last 72 hours. Recent Labs 10/25/242216 INR 1.8* PROTIME 21.7* No results for input(s): TEGANGLE , TEGKTIME , AATBGYGG74 , TEGMAXAMPL , TEGRTIME , CBMZ in the last 72 hours. A/P: # Acute blood loss anemia - Massive OR blood loss/transfusion: EBL 17L, 10 pRBC, 10FFP, 2 platelet, 4 cryo - Transfusion parameters below - Trend TEG, normalize with product - If hypotensive consider product resuscitation # Chronic Thrombocytopenia - Admission platelet 56 - Monitor with CBC per protocol Transfusion parameters: -Transfuse pRBC for hgb < 7 -Transfuse FFP for R time > 9 or INR > 1.7 and bleeding -Transfuse Cryoprecipitate for MA CFF < 15, or low fibrinogen -Transfuse platelets for MA < 55 - Give TXA for LY30 > 3% ENDOCRINE Glucose range: Lab 10/26/24 0140 10/26/24 0039 10/25/24 2340 10/25/24 2217 10/25/24 2156 10/22/24 0000 10/21/24 0000 POC GLU MONITORING DEVICE -- -- -- -- 103* -- -- POCGLUART 116* 116* 101* -- -- -- -- GLUCOSE -- -- -- 114* -- 107 116 Insulin Orders Dose Frequency Start End insulin (HumuLIN R) infusion - TITRATABLE NURSING PROTOCOL (HYPERGLYCEMIA) 0-28 Units/hr Continuous10/25/2024 10/26/2024 Admin Instructions: FOR O.R. USE only. Titrate in O.R. for blood glucose management HIGH ALERT MEDICATION Route: Intravenous A/P: # Stress induced hyperglycemia Home meds: None Last A1c: 3.7 - Insulin gtt, continue # Hypothyroidism - Home levothyroxine 75 mcg daily, hold INFECTIOUS DISEASE Micro data: - Intra-op Cultures: - Surgical swab from abdomen: NGTD - Urine culture: NGTD - Anaerobic culture: NGTD - Fungus culture: NGTD Current Anti-Infectives Dose Frequency Start End AMPicillin 2 g in sodium chloride 0.9% 100 mL IVPB (Lupa2Gvn) 2 g Every 6 hours 10/26/2024 -- Admin Instructions: Use [id number] Adapter - Mix Thoroughly Before Administration Notes to Pharmacy: On order processing clerk estimated creatinine clearance is 35.9 mL/min (A) (based on SCr of 3.87 mg/dL (H)). Route: Intravenous AMPicillin 2 g in sodium chloride 0.9% 100 mL IVPB (Flrd2Qyd) 2 g Once 10/26/2024 -- Admin Instructions: Use Eoxz2Gce Adapter - Mix Thoroughly Before Administration Notes to Pharmacy: On order processing clerk estimated creatinine clearance is 35.9 mL/min (A) (based on SCr of 3.87 mg/dL (H)). Route: Intravenous cefTRIAXone (ROCEPHIN) 2 g in sodium chloride 0.9 % 100 mL Ypfm2Muf (Completed) 2 g Once 10/25/2024 10/26/2024 Admin Instructions: Use Sgwg7Ery Adapter - Mix Thoroughly Before Administration Route: Intravenous fluconazole (DIFLUCAN) 200 mg in iso-osm sodium chloride 100 mL 200 mg Once 10/25/2024 10/26/2024 Admin Instructions: Begin infusion 120 minutes prior to incision. DO NOT REFRIGERATE. Route: Intravenous A/P: # Leukocytosis Likely reactive in s/o surgery - Continue perioperative Abx, ampicillin, fluconazole - Monitor for clinical s/s of infection # Immunosuppression - pred taper, cellcept - [place] when able, per transplant NEUROLOGIC Exam: Follows commands in all four extremities A/P: # Agitation - Propofol gtt # Analgesia - Fentanyl gtt PSYCHIATRIC Exam: Mood/affect appropriate A/P: - ADDY # Mood Disorder - prozac 20 daily, hold at this time Sleep: ADDY Delirium: ADDY CHECKLIST Patient Lines/Drains/Airways Status Active Epidural Line / PICC Line / PIV Line / ART Line / Line / CVC Line Name Placement date Placement time Site Days Peripheral IV 10/25/24 Anterior;Distal;Left Upper arm 10/25/242129 Upper arm less than 1 Arterial Line 10/25/24 Right Radial 10/25/24 2245 Radial less than 1 Introducer 10/25/24 Internal jugular Right 10/25/24 2355 Internal jugular less than 1 Central Line? Yes - Reason: Hemodynamic instability R IJ Mac Arterial Line? R radial [place] Urinary Catheter? Berkowitz - Reason: Adequate I/O DVT Prophylaxis: Subcutaneous Heparin GI Prophylaxis: PPI PT/OT: will engage when appropriate Activity: Bed in chair position DISPOSITION Remain in SICU JOHN MORENO MD 10/26/2024 3:41 AM [1] Allergies Allergen Reactions Adhesive Itching and Rash Tegaderm adhesive on Ivs, pt states its tolerable Duloxetine Other (See Comments) Became Manic Cosigned by Afia Ambrosio MD at 10/26/2024 7:55 AM EDT Associated attestation - Afia Ambrosio MD - 10/26/2024 7:55 AM EDT ICU ATTENDING NOTE: This patient was seen by the Surgical ICU team and the Transplant team; I have personally seen thispatient, examined this patient, and my assessment and plan for coordinated critical care managementreveals: I note the following interval events: 39yo male with a history HLD, RCC (s/p ablation 2022), chronic thrombocytopenia, hypothyroidism, allergies, chronic hypotension, ESLD secondary to EToH cirrhosis, c/b esophageal varices and hepatorenal syndrome, now s/p OLT, pending RTOR for bile duct reconstruction and DDKT. OR Course (10/26/24): - Procedure: OLT, planned for staged DDKT tonight vs tomorrow - IVF: 9 L crystalloid - Blood Products: 11 pRBC, 11FFP, 2 platelet, 1 cryo - Vasopressors: levo, vaso, epi, methylene blue - EBL: 19L - UOP: 1.3L - Other: cell saver 6.1L - Last Hgb: 9.5 HEENT: No Acute Issues RESPIRATORY: Atelectasis/pulmonary collapse - vent support, wean FiO2 - SBT when surgery complete - trend ABG and PRN - CXR pending Vent Mode: VC-SIMV/PRVC FiO2: [35 %-89 %] 35 % S RR: [16] 16 S VT: [500 mL] 500 mL PEEP/CPAP: [0 cm H20-8 cm H20] 8 cm H20 Lab Results Component Value Date PHART 7.27 (L) 10/26/2024 PCO2 47 (H) 10/26/2024 PO2ART 127 (H) 10/26/2024 ONE2JDV 21 (L) 10/26/2024 BEART -5.4 (L) 10/26/2024 [id number] 94.6 (L) 10/26/2024 [id number] 98 10/26/2024 P:F ratio = 363 CARDIOVASCULAR: Hypertension, unspecified Shock, Hypovolemic Chronic hypotension HLD - ECHO September 2024 EF 60-65% - wean pressors as able, levo 24 mcg, epi5 mcg, vaso, methylene blue - albumin 500cc bolus - hodl home midodrine - med rec pending - EKG- prolonged QTC, repeat pending NUTRITION: Signs of malnutrition by BMI or weight loss on admission? No No acute issues Diet: NPO GASTROINTESTINAL: Cirrhosis, alcoholic Hepatorenal syndrome Esophageal varices GERD - s/p OLT 10/26 pending bile duct reconstruction - drains Q1h, albumin replacement - liver US today, trend LFTs - hold home lasix, spironolactone - Pepcid FLUIDS / ELECTROLYTES: Hyperphosphatemia Hypokalemia Hypomagnesemia - trend labs Q6h - replace electrolytes as indicated RENAL: ESRD - pending DDKT SKIN/MUSCULOSKELETAL: Surgical site skin closure HEMATOLOGIC: Acute post hemorrhagic anemia Coagulopathy, unspecified Thrombocytopenia, dilutional - trend CBC, TEG - transfuse as indicated, try to avoid platelets ENDOCRINE: Hyperglycemia Hypothyroidism - insulin gtt - hold home synthroid INFECTIOUS DISEASE: Leukocytosis - likely reactive - diflucan held for prolonged QTc NEUROLOGIC: No acute issues PSYCHIATRIC, PAIN, SEDATION: Pain Management Mood disorder - fent, prop - hold prozac OTHER DISEASE SPECIFIC / IMMUNOSUPPRESSION NEEDS: Transplant immunosuppression - pred taper, methyl pred, cellcept ACTIVE LINES: Patient Lines/Drains/Airways Status Active Epidural Line / PICC Line / PIV Line / ART Line / Line / CVC Line Name Placement date Placement time Site Days Peripheral IV 10/25/24 Anterior;Distal;Left Antecubital 10/25/24 2130 Antecubital less than 1 Peripheral IV 10/26/24 Anterior;Left Forearm 10/26/24 0609 Forearm less than 1 Arterial Line 10/25/24 Right Radial 10/25/24 2245 Radial less than 1 Introducer 10/25/24 Internal jugular Right 10/25/24 2355 Internal jugular less than 1 Central Line? Yes - Reason: Hemodynamic instability Arterial line? Yes ACTIVE DRAINS: Urinary Catheter? Berkowitz - Reason: Adequate I/O DVT Prophylaxis: Subcutaneous Heparin GI Prophylaxis: H2 Heather Mobility: Elevate HOB (lay in bed: 1) DISPOSITION: SICU I saw and examined the patient and discussed the case with the resident and agree with the findingsand plan as documented in the resident's note. Total time delivering critical care for this patient including direction of initial assessment, evaluation, development of a plan, discussion with consultants, and family but excluding time spent performing any associated procedures was 45 minutes on 10/26/2024. Afia Ambrosio MD Section of General Surgery Divisions of Trauma, Acute Care Surgery, and Surgical Critical Care [facility] Academic Office [phone] For Transfers, call [phone] documented in this encounter Nursing Notes * Paulette Flannery RN - 11/02/2024 6:23 PM EDT Reviewed and completed AVS with patient. Discharge education completed. Discharge medication delivered to patient room. All PIVs removed. Patient denies any further questions or concerns. Transport called. Patient leaving unit with all belongings. * Vivi Newton RN - 10/31/2024 1:42 PM EDT Oral contrast started at 1340. * Soco Yap RN - 10/29/2024 6:07 PM EDT Pt had tx orders to floor, 8CCP Rm 8025, pt was transferred via bed and RN. Report called to Ellen REDMAN. Pt placed on CMU per order. All belongings gathered and sent w/ pt. * Simeon Guzman RN - 10/26/2024 6:20 AM EDT Blair Gilbert is a 39 y.o. male admitted to the SICU 10/26/2024 at 0615 s/p OLT. Patient arrived to SICU bed SICU-28/USIC-28 via hospital bed . Patient arrived intubated. Patient immediately placed on SICU continuous cardiac and SpO2 monitoring. Report obtained at bedside from OR staff. Please refer to documentation flowsheets for a complete assessment and vital signs. Admission orders reviewed. Ordered labs sent. No family present at this time. SIMEON GUZMAN RN 10/26/2024 7:30 AM documented in this encounter Miscellaneous Notes * Plan of Care - Yvonne Gale RN - 11/02/2024 2:39 AM EDT Problem: Acute Pain Description: Patient's pain progressing toward patient's stated pain goal Goal: Patient displays improved well-being such as baseline levels for pulse, BP, respirations and relaxed muscle tone or body posture Outcome: Progressing Problem: High Fall Risk Precautions Goal: High Fall Risk Precautions Outcome: Progressing Problem: Knowledge Deficit Goal: Patient/family/caregiver demonstrates understanding [...] Outcome: Progressing * Plan of Care - Paulette Flannery RN - 11/01/2024 8:34 PM EDT Problem: Acute Pain Description: Patient's pain progressing toward patient's stated pain goal Goal: Patient displays improved well-being such as baseline levels for pulse, BP, respirations and relaxed muscle tone or body posture Outcome: Progressing Problem: Knowledge Deficit Goal: Patient/family/caregiver demonstrates understanding of disease process, treatment plan, medications, and discharge instructions Description: Complete learning assessment and assess knowledge base. Outcome: Progressing Problem: Potential for Compromised Skin Integrity Goal: Nutritional status is improving Description: Monitor [...] Outcome: Progressing * Plan of Care - Yvonne Gale RN - 11/01/2024 1:29 AM EDT Problem: Acute Pain Description: Patient's pain progressing toward patient's stated pain goal Goal: Patient displays improved well-being such as baseline levels for pulse, BP, respirations and relaxed muscle tone or body posture Outcome: Progressing Problem: High Fall Risk Precautions Goal: High Fall Risk Precautions Outcome: Progressing Problem: Knowledge Deficit Goal: Patient/family/caregiver demonstrates understanding [...] and interventions as needed. Outcome: Progressing Problem: Acute Pain Description: Patient's pain progressing toward patient's stated pain goal Goal: Patient displays improved well-being such as baseline levels for pulse, BP, respirations and relaxed muscle tone or body posture Outcome: Progressing Problem: High Fall Risk Precautions Goal: High Fall Risk Precautions Outcome: Progressing Problem: Knowledge Deficit Goal: Patient/family/caregiver demonstrates understanding [...] and interventions as needed. Outcome: Progressing Problem: Acute Pain Description: Patient's pain progressing toward patient's stated pain goal Goal: Patient displays improved well-being such as baseline levels for pulse, BP, respirations and relaxed muscle tone or body posture Outcome: Progressing Problem: High Fall Risk Precautions Goal: High Fall Risk Precautions Outcome: Progressing Problem: Knowledge Deficit Goal: Patient/family/caregiver demonstrates understanding [...] and interventions as needed. Outcome: Progressing Problem: Acute Pain Description: Patient's pain progressing toward patient's stated pain goal Goal: Patient displays improved well-being such as baseline levels for pulse, BP, respirations and relaxed muscle tone or body posture Outcome: Progressing Problem: High Fall Risk Precautions Goal: High Fall Risk Precautions Outcome: Progressing Problem: Knowledge Deficit Goal: Patient/family/caregiver demonstrates understanding [...] needed. Outcome: Progressing * Care Coordination - NUBIA Escalera, RONALDO - 10/31/2024 11:34 AM EDT [facility] Case Management/Social Work Department Progress Note Patient Information Patient Name: [facility] day: 6 Inpatient/Observation: Inpatient Level of Care: Transplant Admit date: 10/25/2024 Admission diagnosis: Liver transplant recipient (CMS-HCC) [Z94.4] PMH: has a past medical history of Alcoholic cirrhosis of liver (CMS-HCC), Esophageal varices (CMS-HCC), Hepatorenal syndrome (CMS-HCC), Hypertension, Other hyperlipidemia (07/26/2024), Renal cell carcinoma (CMS-HCC), Thrombocytopenia (CMS-HCC), and Thyroid disease. PCP: Enedina Mcguire NP Home Pharmacy: [facility] [address] [place] [address] [address] [facility] [address] [facility] [address] [facility] [address] [facility] [address] [facility] [id number] Medical Insurance Coverage: Payor: [employer]ARE / Plan: [employer] / Product Type: *No Product type* / Other Pertinent Information SW received report from Transplant medical team. SW completed chart review. Per report patient is not medically ready to discharge. Patient recommended for home PT/OT and 2x weekly labs. SW followed up on C referrals and submitted a few more C referrals. Update: MEREDITH made nurse educator aware that there were no accepting C agencies([facility], [facility], [facility]) and patient would need to outpatient for PT/OT and labs. Discharge Plan Anticipated discharge plan: Home with HHC vs Home with outpatient Anticipated discharge date: 11/01 CM/SW will continue to follow and remain available for discharge planning needs. NUBIA Escalera, RONALDO Cell [phone] * Plan of Care - Paulette Flannery RN - 10/31/2024 7:21 AM EDT Problem: Acute Pain Description: Patient's pain progressing toward patient's stated pain goal Goal: Patient displays improved well-being such as baseline levels for pulse, BP, respirations and relaxed muscle tone or body posture Outcome: Progressing Problem: Knowledge Deficit Goal: Patient/family/caregiver demonstrates understanding of disease process, treatment plan, medications, and discharge instructions Description: Complete learning assessment and assess knowledge base. Outcome: Progressing Problem: Potential for Compromised Skin Integrity Goal: Nutritional status is improving Description: Monitor [...] high- caloric foods as appropriate. Outcome: Progressing * Plan of Care - Vandana Vilchis RN - 10/29/2024 10:01 PM EDT Problem: Acute Pain Description: Patient's pain progressing toward patient's stated pain goal Goal: Patient displays improved well-being such as baseline levels for pulse, BP, respirations and relaxed muscle tone or body posture Outcome: Progressing Problem: High Fall Risk Precautions Goal: High Fall Risk Precautions Outcome: Progressing Problem: Knowledge Deficit Goal: Patient/family/caregiver demonstrates understanding [...] high- caloric foods as appropriate. Outcome: Progressing * Care Coordination - Citlaly Rohini - 10/29/2024 1:53 PM EDT Health Case Management/Social Work Department Progress Note Patient Information Patient Name: [facility] day: 4 Inpatient/Observation: Inpatient Level of Care: Transplant Admit date: 10/25/2024 Admission diagnosis: Liver transplant recipient (CMS-HCC) [Z94.4] PMH: has a past medical history of Alcoholic cirrhosis of liver (CMS-HCC), Esophageal varices (CMS-HCC), Hepatorenal syndrome (CMS-HCC), Hypertension, Other hyperlipidemia (07/26/2024), Renal cell carcinoma (CMS-HCC), Thrombocytopenia ([facility]), and Thyroid disease. PCP: Enedina Mcguire NP Home Pharmacy: [facility] [address] [place], [place] [id number] [address] [address] [facility] [address] [facility] [address] [facility] [address] [facility] [address] [facility] [id number] Medical Insurance Coverage: Payor: [facility] CARE / Plan: [employer] / Product Type: *No Product type* / Other Pertinent Information MEREDITH received report from Transplant medical team. MEREDITH completed chart review. Per report patient is not medically ready to discharge. PT/OT recommended Home OT/PT pending further assessment. SW attempted to speak to patient to see ifpatient is agreeable to blanket referral for HHC, patient was busy receiving care. SW called spouseto see if patient would be agreeable to HHC, spouse stated patient/spouse were hoping for assistance and is agreeable to a blanket referral. MEREDITH submitted blanket HHC referral to [facility] [employer] [facility], [facility], [facility], and [facility]. Awaiting responses. SW to followpending clearance home without HHC. 3:19 PM [facility] declined due to being out of network. 4:01 PM SW spoke to patient about rolling walker recommendation. Patient requested that SW hold off on rolling walker referral, stating that his brother works as a Home Health Aide and may have access to a walker. Patient stated he will follow up with SW tomorrow. Discharge Plan Anticipated discharge plan: Home vs. Home w/ HHC. Anticipated discharge date: 10/31 CM/SW will continue to follow and remain available for discharge planning needs. Citlaly Nova MSW, ANIMAL ASSISTANT Inpatient Guest Services Officer/Care Coordination [phone] * Plan of Care - Soco Yap RN - 10/29/2024 8:00 AM EDT Problem: Acute Pain Description: Patient's pain progressing toward patient's stated pain goal Goal: Patient displays improved well-being such as baseline levels for pulse, BP, respirations and relaxed muscle tone or body posture Outcome: Progressing Problem: High Fall Risk Precautions Goal: High Fall Risk Precautions Outcome: Progressing Problem: Potential for Compromised Skin Integrity Goal: Skin integrity is maintained or improved Description: Assess and monitor skin integrity. Identify patients at risk for skin breakdown on admission and per policy. Collaborate with interdisciplinary team and initiate plans and interventions as needed. Outcome: Progressing * Plan of Care - Solange Jj RN - 10/28/2024 9:31 PM EDT Problem: Acute Pain Description: Patient's pain progressing toward patient's stated pain goal Goal: Patient displays improved well-being such as baseline levels for pulse, BP, respirations and relaxed muscle tone or body posture Outcome: Progressing Problem: High Fall Risk Precautions Goal: High Fall Risk Precautions Outcome: Progressing Problem: Knowledge Deficit Goal: Patient/family/caregiver demonstrates understanding [...] high- caloric foods as appropriate. Outcome: Progressing * Care Coordination - NUBIA Escalera, RONALDO - 10/28/2024 2:29 PM EDT [facility] Case Management/Social Work Department Progress Note Patient Information Patient Name: [facility] day: 3 Inpatient/Observation: Inpatient Level of Care: Transplant Admit date: 10/25/2024 Admission diagnosis: Liver transplant recipient (CMS-HCC) [Z94.4] PMH: has a past medical history of Alcoholic cirrhosis of liver (CMS-HCC), Esophageal varices (CMS-HCC), Hepatorenal syndrome (CMS-HCC), Hypertension, Other hyperlipidemia (07/26/2024), Renal cell carcinoma (CMS-HCC), Thrombocytopenia (CMS-HCC), and Thyroid disease. PCP: Enedina Mcguire NP [facility] Pharm[facility]: [facility] [address] [facility] [facility] [address] [facility] [address] [facility] [address] [facility] [address] [place] [id number] Medical Insurance Coverage: Payor: [employer] / Plan: [employer] / Product Type: *No Product type* / Other Pertinent Information SW received report from Transplant medical team. SW completed chart review. Per report patient is not medically ready to discharge. PT/OT to assess once appropriate. Discharge Plan Anticipated discharge plan: Pending PT/OT Anticipated discharge date: 11/03 CM/SW will continue to follow and remain available for discharge planning needs. NUBIA Escalera, RONALDO Cell [phone] * Plan of Care - Elaine Carrillo RN - 10/28/2024 12:00 PM EDT Problem: Acute Pain Description: Patient's pain progressing toward patient's stated pain goal Goal: Patient displays improved well-being such as baseline levels for pulse, BP, respirations and relaxed muscle tone or body posture Outcome: Progressing Problem: High Fall Risk Precautions Goal: High Fall Risk Precautions Outcome: Progressing Problem: Potential for Compromised Skin [...] caloric foods as appropriate. Outcome: Progressing Problem: Mechanical Ventilation Goal: Patient will maintain patent airway Description: Assess and monitor airway secretions and suction as needed per patient's condition andaccording to policy. Outcome: Completed Goal: ET tube will be managed safely Description: Assess and monitor insertion depth at lip/nare line. Utilize ETT securing device and change as necessary to ensure ETT is properly secured to patient. Support ventilator tubing to avoid pressure from drag of tubing. Keep ambu bag, mask, oxygen connection tubing, and extra ETT at bedside and accompanying patient at all times. Outcome: Completed Problem: Non-violent, njx-nxrd-xhfmuvcwyvh restraints Description: Less restrictive alternative interventions will be considered prior to application of restraint devices. Goal: Patient will be restrained only to maintain safety Description: Alternatives to restraints can include; moving the patient closer to the nurses station, video monitoring where available, medicating for pain, agitation or psychosis, psychosocial interventions, manipulation of environment, frequent toileting, diversional activities, bed alarms, having family members sit with patient, frequent reorientation, or repositioning. Outcome: Completed Problem: Non-violent restraint safety Goal: Patient will be free from injury during restraint period Description: Assess and monitor for unsafe behaviors that can include unintentional harm of self orothers, risk for joint dislocation related to post- operative status, risks for potential nutrition/hydration issues related to removing/tampering with medical equipment, protection of medical procedures, or protection of medical diagnostic radiographer access. Outcome: Completed * Plan of Care - Solange Jj RN - 10/27/2024 10:23 PM EDT Problem: Acute Pain Description: Patient's pain progressing toward patient's stated pain goal Goal: Patient displays improved well-being such as baseline levels for pulse, BP, respirations and relaxed muscle tone or body posture Outcome: Progressing Problem: High Fall Risk Precautions Goal: High Fall Risk Precautions Outcome: Progressing Problem: Knowledge Deficit Goal: Patient/family/caregiver demonstrates understanding [...] and interventions as needed. Outcome: Progressing Problem: Mechanical Ventilation Goal: Patient will maintain patent airway Description: Assess and monitor airway secretions and suction as needed per patient's condition andaccording to policy. Outcome: Progressing Goal: ET tube will be managed safely Description: Assess and monitor insertion depth at lip/nare line. Utilize ETT securing device and change as necessary to ensure ETT is properly secured to patient. Support ventilator tubing to avoid pressure from drag of tubing. Keep ambu bag, mask, oxygen connection tubing, and extra ETT at bedside and accompanying patient at all times. Outcome: Progressing * Plan of Care - Elaine Carrillo RN - 10/27/2024 9:11 PM EDT Problem: Acute Pain Description: Patient's pain progressing toward patient's stated pain goal Goal: Patient displays improved well-being such as baseline levels for pulse, BP, respirations and relaxed muscle tone or body posture Outcome: Progressing * Plan of Care - Elaine Carrillo RN - 10/27/2024 12:00 PM EDT Patient in BUE soft nonviolent restraints to maintain patient safety and protect medical devices. See restraint flowsheet for further documentation. Problem: Acute Pain Description: Patient's pain progressing toward patient's stated pain goal Goal: Patient displays improved well-being such as baseline levels for pulse, BP, respirations and relaxed muscle tone or body posture Outcome: Progressing Problem: High Fall Risk Precautions Goal: High Fall Risk Precautions Outcome: Progressing Problem: Potential for Compromised Skin [...] caloric foods as appropriate. Outcome: Progressing Problem: Non-violent, mpg-lcjn-jnialrpdocf restraints Description: Less restrictive alternative interventions will be considered prior to application of restraint devices. Goal: Patient will be restrained only to maintain safety Description: Alternatives to restraints can include; moving the patient closer to the nurses station, video monitoring where available, medicating for pain, agitation or psychosis, psychosocial interventions, manipulation of environment, frequent toileting, diversional activities, bed alarms, having family members sit with patient, frequent reorientation, or repositioning. Outcome: Progressing Problem: Non-violent restraint safety Goal: Patient will be free from injury during restraint period Description: Assess and monitor for unsafe behaviors that can include unintentional harm of self orothers, risk for joint dislocation related to post- operative status, risks for potential nutrition/hydration issues related to removing/tampering with medical equipment, protection of medical procedures, or protection of medical diagnostic radiographer access. Outcome: Progressing * Plan of Care - Shanel Shen RN - 10/27/2024 9:00 AM EDT Problem: Non-violent, mlk-pfkj-eqhheuvmffr restraints Description: Less restrictive alternative interventions will be considered prior to application of restraint devices. Goal: Patient will be restrained only to maintain safety Description: Alternatives to restraints can include; moving the patient closer to the nurses station, video monitoring where available, medicating for pain, agitation or psychosis, psychosocial interventions, manipulation of environment, frequent toileting, diversional activities, bed alarms, having family members sit with patient, frequent reorientation, or repositioning. Note: Patient continues to exhibit impulsive behaviors. Multiple attempts to reorient, increase activity and decrease stimulation. Unable to follow direction. Attempting to pull out medical equipmentand lines. Restraints continued per order. Will continue to monitor. * Plan of Care - Simeon Guzman RN - 10/26/2024 7:41 PM EDT Problem: Non-violent, zmj-wjbn-siiroelwilh restraints Description: Less restrictive alternative interventions will be considered prior to application of restraint devices. Goal: Patient will be restrained only to maintain safety Description: Alternatives to restraints can include; moving the patient closer to the nurses station, video monitoring where available, medicating for pain, agitation or psychosis, psychosocial interventions, manipulation of environment, frequent toileting, diversional activities, bed alarms, having family members sit with patient, frequent reorientation, or repositioning. Outcome: Not Progressing Problem: Non-violent restraint safety Goal: Patient will be free from injury during restraint period Description: Assess and monitor for unsafe behaviors that can include unintentional harm of self orothers, risk for joint dislocation related to post- operative status, risks for potential nutrition/hydration issues related to removing/tampering with medical equipment, protection of medical procedures, or protection of medical diagnostic radiographer access. Outcome: Not Progressing Patient in bilateral soft upper extremity restraints to maintain patient safety and protect medicaldevices. Will continue to monitor and reassess need for restraints. See restraint flowsheet for further documentation. Simeon REDMAN * Plan of Care - Shell Biswas RN - 10/26/2024 11:05 AM EDT Patient in bilateral soft wrist restraints to maintain patient safety and protect medical devices. Will continue to monitor and reassess need for restraints. See restraint flowsheet for further documentation. Problem: Non-violent, yzd-sokr-xrccchefrmm restraints Description: Less restrictive alternative interventions will be considered prior to application of restraint devices. Goal: Patient will be restrained only to maintain safety Description: Alternatives to restraints can include; moving the patient closer to the nurses station, video monitoring where available, medicating for pain, agitation or psychosis, psychosocial interventions, manipulation of environment, frequent toileting, diversional activities, bed alarms, having family members sit with patient, frequent reorientation, or repositioning. Outcome: Progressing Problem: Non-violent restraint safety Goal: Patient will be free from injury during restraint period Description: Assess and monitor for unsafe behaviors that can include unintentional harm of self orothers, risk for joint dislocation related to post- operative status, risks for potential nutrition/hydration issues related to removing/tampering with medical equipment, protection of medical procedures, or protection of medical diagnostic radiographer access. Outcome: Progressing * Plan of Care - Jannet Ramires - 10/26/2024 9:55 AM EDT Problem: Mechanical Ventilation Goal: Patient will maintain patent airway Description: Assess and monitor airway secretions and suction as needed per patient's condition andaccording to policy. Outcome: Progressing Goal: ET tube will be managed safely Description: Assess and monitor insertion depth at lip/nare line. Utilize ETT securing device and change as necessary to ensure ETT is properly secured to patient. Support ventilator tubing to avoid pressure from drag of tubing. Keep ambu bag, mask, oxygen connection tubing, and extra ETT at bedside and accompanying patient at all times. Outcome: Progressing documented in this encounter Plan of Treatment Scheduled Orders Name Type Priority Associated Diagnoses Orde r Schedule Anaerobic culture Microbiology Routine Acute kidney injury superimposed on CKD ([facility]) Release Upon Ordering for 1 Occurrences starting 10/27/2024 Fungus culture Microbiology Routine Acute kidney injury superimposed on CKD ([facility]) Release Upon Ordering for 1 Occurrences starting 10/27/2024 Routine Culture plus Stain Microbiology Routine Acute kidney injury superimposed on CKD ([facility]) Release Upon Ordering for 1 Occurrences starting 10/27/2024 Surgical Pathology Exam Pathology and Cytology Routine Acute kidney injury superimposed on CKD (CMS-HCC) Release Upon Ordering for 1 Occurrences starting 10/27/2024 documented as of this encounter Procedures Procedure Name Priority Date/Time Associated Diagnosis Comments EKG - SCAN 11/03/2024 9:07 AM EDT BLOOD TRANSFUSION - SCAN 11/03/2024 8:24 AM EDT PERFUSION RECORD - SCAN 11/03/2024 8:24 AM EDT POC GLU MONITORING DEVICE Routine 11/02/2024 5:44 PM EDT POC GLU MONITORING DEVICE Routine 11/02/2024 3:34 PM EDT POC GLU MONITORING DEVICE Routine 11/02/2024 1:18 PM EDT POC GLU MONITORING DEVICE Routine 11/02/2024 8:59 AM EDT HEPATIC FUNCTION PANEL Routine 5:53 AM EDT RENAL FUNCTION PANEL W/EGFR Routine 11/02/2024 5:53 AM EDT TACROLIMUS LEVEL Timed 11/02/2024 5:53 AM EDT CBC Routine 11/02/2024 5:53 AM EDT MAGNESIUM Routine 11/02/2024 5:53 AM EDT POC GLU MONITORING DEVICE Routine 11/01/2024 9:26 PM EDT POC GLU MONITORING DEVICE Routine 11/01/2024 5:04 PM EDT RENAL FUNCTION PANEL W/EGFR STAT 11/01/2024 2:17 PM EDT XR PORTABLE ABDOMEN AP Routine 12:34 PM EDT POC GLU MONITORING DEVICE Routine 11/01/2024 12:22 PM EDT POC GLU MONITORING DEVICE Routine 11/01/2024 8:50 AM EDT HEPATIC FUNCTION PANEL Routine 6:01 AM EDT RENAL FUNCTION PANEL W/EGFR Routine 11/01/2024 6:01 AM EDT TACROLIMUS LEVEL Timed 11/01/2024 6:01 AM EDT CBC Routine 11/01/2024 6:01 AM EDT MAGNESIUM Routine 11/01/2024 6:01 AM EDT POC GLU MONITORING DEVICE Routine 10/31/2024 9:15 PM EDT POC GLU MONITORING DEVICE Routine 10/31/2024 5:[address] ABDOMEN AND PELVIS WO IV CONTRAST STAT 10/31/2024 4:08 PM EDT ECG 12-LEAD (MUSE) Routine 10/31/2024 3: 42 PM EDT POST KIDNEY TRANSPLANT URINE CULTURE Routine 10/31/2024 1:18 PM EDT URINALYSIS W/RFL TO MICROSCOPIC Routine 10/31/2024 1:18 PM EDT POC GLU MONITORING DEVICE Routine 10/31/2024 11:59 AM EDT US DUPLEX [id number] COMPLETE Routine 10/31/2024 10:19 AM EDT US ABDOMEN LIMITED Routine 10/31/2024 10:19 AM EDT US RENAL TRANSPLANT Routine 10/31/2024 10:19 AM EDT ECG 12-LEAD (MUSE) STAT 10/31/2024 8: 57 AM EDT POC GLU MONITORING DEVICE Routine 10/31/2024 8:44 AM EDT HEPATIC FUNCTION PANEL Routine 6:40 AM EDT RENAL FUNCTION PANEL W/EGFR Routine 10/31/2024 6:40 AM EDT TACROLIMUS LEVEL Timed 10/31/2024 6:40 AM EDT CBC Routine 10/31/2024 6:40 AM EDT MAGNESIUM Routine 10/31/2024 6:40 AM EDT POC GLU MONITORING DEVICE Routine 10/30/2024 9:01 PM EDT POC GLU MONITORING DEVICE Routine 10/30/2024 5:37 PM EDT POC GLU MONITORING DEVICE Routine 10/30/2024 7:26 AM EDT TACROLIMUS LEVEL Timed 10/30/2024 7:13 AM EDT ECG 12-LEAD (MUSE) STAT 10/30/2024 6: 51 AM EDT HEPATIC FUNCTION PANEL Routine 5:41 AM EDT RENAL FUNCTION PANEL W/EGFR Routine 10/30/2024 5:41 AM EDT CBC Routine 10/30/2024 5:41 AM EDT MAGNESIUM Routine 10/30/2024 5:41 AM EDT POC GLU MONITORING DEVICE Routine 10/29/2024 10:18 PM EDT POC GLU MONITORING DEVICE Routine 10/29/2024 6:42 PM EDT POC GLU MONITORING DEVICE Routine 10/29/2024 11:35 AM EDT ECG 12-LEAD (MUSE) Routine 10/29/2024 9: 34 AM EDT TACROLIMUS LEVEL Timed 10/29/2024 8:08 AM EDT PREPARE RBC, LEUKOREDUCED Routine 10/29/2024 6:16 AM EDT PREPARE RBC, LEUKOREDUCED STAT 10/29/2024 6:15 AM EDT PREPARE RBC, LEUKOREDUCED Routine 10/29/2024 6:15 AM EDT TEG-BYPASS/ECMO/LIVER HN (FACTOR FUNCTION, PLATELET/FIBRIN CLOT STRENGTH W/CLOT BREAKDOWN, HEPARINASE IN ALL CHANNELS) STAT 10/29/2024 5:07 AM EDT HEPATIC FUNCTION PANEL Routine 5:07 AM EDT RENAL FUNCTION PANEL W/EGFR Routine 10/29/2024 5:07 AM EDT CBC Routine 10/29/2024 5:07 AM EDT MAGNESIUM Routine 10/29/2024 5:07 AM EDT TEG-BYPASS/ECMO/LIVER HN (FACTOR FUNCTION, PLATELET/FIBRIN CLOT STRENGTH W/CLOT BREAKDOWN, HEPARINASE IN ALL CHANNELS) STAT 10/28/2024 11:55 PM EDT CBC STAT 10/28/2024 8:04 PM EDT POC GLU MONITORING DEVICE Routine 10/28/2024 8:03 PM EDT TEG-BYPASS/ECMO/LIVER HN (FACTOR FUNCTION, PLATELET/FIBRIN CLOT STRENGTH W/CLOT BREAKDOWN, HEPARINASE IN ALL CHANNELS) STAT 10/28/2024 6:39 PM EDT POC GLU MONITORING DEVICE Routine 10/28/2024 5:31 PM EDT US DUPLEX [id number] COMPLETE STAT 10/28/2024 4:23 PM EDT US ABDOMEN LIMITED STAT 10/28/2024 4: 23 PM EDT TRANSFUSE RED BLOOD CELLS Routine 10/28/2024 3:46 PM EDT CBC STAT 10/28/2024 2:49 PM EDT ECG 12-LEAD (MUSE) Routine 10/28/2024 1: 22 PM EDT POC GLU MONITORING DEVICE Routine 10/28/2024 12:54 PM EDT TRANSFUSE RED BLOOD CELLS STAT 10/28/2024 11:41 AM EDT TEG-BYPASS/ECMO/LIVER HN (FACTOR FUNCTION, PLATELET/FIBRIN CLOT STRENGTH W/CLOT BREAKDOWN, HEPARINASE IN ALL CHANNELS) STAT 10/28/2024 11:09 AM EDT LACTIC ACID STAT 10/28/2024 11:09 AM EDT RENAL FUNCTION PANEL W/EGFR STAT 10/28/2024 11:09 AM EDT PROTIME-INR STAT 10/28/2024 11:09 AM EDT MAGNESIUM STAT 10/28/2024 11:09 AM EDT CBC STAT 10/28/2024 10:21 AM EDT POC GLU MONITORING DEVICE Routine 10/28/2024 9:07 AM EDT TACROLIMUS LEVEL Timed 10/28/2024 8:20 AM EDT POC GLU MONITORING DEVICE Routine 10/28/2024 8:10 AM EDT POC GLU MONITORING DEVICE Routine 10/28/2024 6:17 AM EDT PREPARE PLATELETS, LEUKOREDUCED Routine 10/28/2024 6:15 AM EDT PREPARE PLATELETS, LEUKOREDUCED Routine 10/28/2024 6:15 AM EDT PREPARE FRESH FROZEN PLASMA Routine 10/28/2024 6:15 AM EDT PREPARE FRESH FROZEN PLASMA Routine 10/28/2024 6:15 AM EDT PREPARE CRYOPRECIPITATE Routine 10/28/2024 6:15 AM EDT PREPARE CRYOPRECIPITATE Routine 10/28/2024 6:15 AM EDT PREPARE RBC, LEUKOREDUCED Routine 10/28/2024 6:15 AM EDT POC GLU MONITORING DEVICE Routine 10/28/2024 4:55 AM EDT TEG-BYPASS/ECMO/LIVER HN (FACTOR FUNCTION, PLATELET/FIBRIN CLOT STRENGTH W/CLOT BREAKDOWN, HEPARINASE IN ALL CHANNELS) STAT 10/28/2024 4:13 AM EDT HEPATIC FUNCTION PANEL Routine 4:13 AM EDT RENAL FUNCTION PANEL W/EGFR Routine 10/28/2024 4:13 AM EDT PROTIME-INR Routine 10/28/2024 4:13 AM EDT CBC Routine 10/28/2024 4:13 AM EDT MAGNESIUM Routine 10/28/2024 4:13 AM EDT POC GLU MONITORING DEVICE Routine 10/28/2024 4:04 AM EDT POC GLU MONITORING DEVICE Routine 10/28/2024 3:00 AM EDT POC GLU MONITORING DEVICE Routine 10/28/2024 2:32 AM EDT POC GLU MONITORING DEVICE Routine 10/28/2024 2:14 AM EDT POC GLU MONITORING DEVICE Routine 10/28/2024 2:03 AM EDT TRANSFUSE RED BLOOD CELLS Routine 10/28/2024 1:20 AM EDT TEG-BYPASS/ECMO/LIVER HN (FACTOR FUNCTION, PLATELET/FIBRIN CLOT STRENGTH W/CLOT BREAKDOWN, HEPARINASE IN ALL CHANNELS) STAT 10/28/2024 12:05 AM EDT RENAL FUNCTION PANEL W/EGFR Routine 10/28/2024 12:05 AM EDT DIFFERENTIAL Routine 10/28/2024 12:05 AM EDT CBC Routine 10/28/2024 12:05 AM EDT MAGNESIUM Routine 10/28/2024 12:05 AM EDT POC GLU MONITORING DEVICE Routine 10/28/2024 12:03 AM EDT POC GLU MONITORING DEVICE Routine 10/27/2024 10:03 PM EDT POC GLU MONITORING DEVICE Routine 10/27/2024 8:06 PM EDT POC GLU MONITORING DEVICE Routine 10/27/2024 6:00 PM EDT LACTIC ACID STAT 10/27/2024 5:41 PM EDT TEG-BYPASS/ECMO/LIVER HN (FACTOR FUNCTION, PLATELET/FIBRIN CLOT STRENGTH W/CLOT BREAKDOWN, HEPARINASE IN ALL CHANNELS) STAT 10/27/2024 5:13 PM EDT HEPATIC FUNCTION PANEL STAT 5:13 PM EDT HEPATIC FUNCTION PANEL Routine 5:13 PM EDT RENAL FUNCTION PANEL W/EGFR Routine 10/27/2024 5:13 PM EDT PROTIME-INR Routine 10/27/2024 5:13 PM EDT CBC Routine 10/27/2024 5:13 PM EDT MAGNESIUM Routine 10/27/2024 5:13 PM EDT POC GLU MONITORING DEVICE Routine 10/27/2024 3:57 PM EDT CBC STAT 10/27/2024 2:40 PM EDT BLOOD GAS, ARTERIAL STAT 10/27/2024 2 :40 PM EDT POC GLU MONITORING DEVICE Routine 10/27/2024 2:06 PM EDT BLOOD GAS, ARTERIAL STAT 10/27/2024 12:35 PM EDT TEG-BYPASS/ECMO/LIVER HN (FACTOR FUNCTION, PLATELET/FIBRIN CLOT STRENGTH W/CLOT BREAKDOWN, HEPARINASE IN ALL CHANNELS) STAT 10/27/2024 12:07 PM EDT POC GLU MONITORING DEVICE Routine 10/27/2024 12:01 PM EDT POC GLU MONITORING DEVICE Routine 10/27/2024 10:59 AM EDT ECG 12-LEAD (MUSE) STAT 10/27/2024 10:17 AM EDT POC GLU MONITORING DEVICE Routine 10/27/2024 10:00 AM EDT US DUPLEX YNM-ELEZON-ERCKNXS COMPLETE STAT 10/27/2024 9:51 AM EDT US ABDOMEN LIMITED STAT 10/27/2024 9: 51 AM EDT US RENAL TRANSPLANT STAT 10/27/2024 9 :51 AM EDT CARISA RHYTHM STRIP - SCAN 10/27/2024 9:25 AM EDT POC GLU MONITORING DEVICE Routine 10/27/2024 9:05 AM EDT XR PORTABLE CHEST STAT 10/27/2024 8:5 8 AM EDT PROTIME-INR STAT 10/27/2024 8:16 AM EDT TEG-BYPASS/ECMO/LIVER HN (FACTOR FUNCTION, PLATELET/FIBRIN CLOT STRENGTH W/CLOT BREAKDOWN, HEPARINASE IN ALL CHANNELS) STAT 10/27/2024 8:00 AM EDT HEPATIC FUNCTION PANEL STAT 8:00 AM EDT LACTIC ACID STAT 10/27/2024 8:00 AM EDT RENAL FUNCTION PANEL W/EGFR Routine 10/27/2024 8:00 AM EDT KATIE-WATKINS VIRUS VCA IGG AB Routine 10/27/2024 8:00 AM EDT MAGNESIUM Routine 10/27/2024 8:00 AM EDT HEMOGLOBIN A1C Routine 10/27/2024 8:00 AM EDT BLOOD GAS, ARTERIAL STAT 10/27/2024 8 :00 AM EDT POC GLU MONITORING DEVICE Routine 10/27/2024 7:59 AM EDT XR ABDOMEN AP VIEW ONLY STAT 10/27/2024 7:47 AM EDT TRANSFUSE RED BLOOD CELLS Routine 10/27/2024 6:29 AM EDT PREPARE PLATELETS, LEUKOREDUCED Routine 10/27/2024 6:16 AM EDT PREPARE PLATELETS, LEUKOREDUCED Routine 10/27/2024 6:16 AM EDT PREPARE FRESH FROZEN PLASMA Routine 10/27/2024 6:16 AM EDT PREPARE CRYOPRECIPITATE Routine 10/27/2024 6:16 AM EDT PREPARE CRYOPRECIPITATE Routine 10/27/2024 6:16 AM EDT PREPARE FRESH FROZEN PLASMA Routine 10/27/2024 6:15 AM EDT PREPARE RBC, LEUKOREDUCED Routine 10/27/2024 6:15 AM EDT PREPARE RBC, LEUKOREDUCED Routine 10/27/2024 6:15 AM EDT ARTERIAL BLOOD GAS PANEL STAT 10/27/2024 6:09 AM EDT TRANSFUSE PLATELETS Routine 10/27/2024 6 :09 AM EDT TRANSFUSE FRESH FROZEN PLASMA Routine 10/27/2024 5:49 AM EDT TRANSFUSE CRYOPRECIPITATE Routine 10/27/2024 4:56 AM EDT TRANSFUSE CRYOPRECIPITATE Routine 10/27/2024 4:49 AM EDT POC GLU MONITORING DEVICE Routine 10/27/2024 4:46 AM EDT TRANSFUSE PLATELETS Routine 10/27/2024 4 :24 AM EDT TRANSFUSE FRESH FROZEN PLASMA Routine 10/27/2024 4:07 AM EDT TRANSFUSE RED BLOOD CELLS Routine 10/27/2024 3:52 AM EDT ARTERIAL BLOOD GAS PANEL STAT 10/27/2024 3:07 AM EDT SURGICAL PATHOLOGY EXAM Routine 10/27/2024 2:38 AM EDT Acute kidney injury superimposed on CKD (CMS-HCC) WI RENAL ALTRNSPLJ IMPLTJ 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 10/27/2024 2:32 AM EDT Acute kidney injury superimposed on CKD (CMS-HCC) 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 [employer] ROUTINE CULTURE PLUS STAIN Routine 10/27/2024 2:15 AM EDT FUNGUS CULTURE Routine 10/27/2024 2:15 AM EDT ANAEROBIC CULTURE Routine 10/27/2024 2:1 5 AM EDT TEG-STANDARD GLOBAL HEMOSTASIS (RAPID TEG WITH HEPARIN EFFECT, CONTAINS A BASELINE) STAT 10/27/2024 1:51 AM EDT POC GLU MONITORING DEVICE Routine 10/27/2024 1:50 AM EDT TRANSFUSE PLATELETS Routine 10/27/2024 1 :28 AM EDT POC GLU MONITORING DEVICE Routine 10/27/2024 1:21 AM EDT TRANSFUSE CRYOPRECIPITATE Routine 10/27/2024 1:05 AM EDT TRANSFUSE FRESH FROZEN PLASMA Routine 10/27/2024 12:30 AM EDT TEG-BYPASS/ECMO/LIVER HN (FACTOR FUNCTION, PLATELET/FIBRIN CLOT STRENGTH W/CLOT BREAKDOWN, HEPARINASE IN ALL CHANNELS) STAT 10/27/2024 12:13 AM EDT HEPATIC FUNCTION PANEL Routine 12:13 AM EDT LACTIC ACID Routine 10/27/2024 12:13 AM EDT RENAL FUNCTION PANEL W/EGFR Routine 10/27/2024 12:13 AM EDT CALCIUM FREE, SERUM STAT 10/27/2024 12:13 AM EDT PROTIME-INR Routine 10/27/2024 12:13 AM EDT CBC Routine 10/27/2024 12:13 AM EDT MAGNESIUM Routine 10/27/2024 12:13 AM EDT BLOOD GAS, ARTERIAL STAT 10/27/2024 12:13 AM EDT POC GLU MONITORING DEVICE Routine 10/27/2024 12:08 AM EDT POC GLU MONITORING DEVICE Routine 10/26/2024 11:15 PM EDT TEG-BYPASS/ECMO/LIVER HN (FACTOR FUNCTION, PLATELET/FIBRIN CLOT STRENGTH W/CLOT BREAKDOWN, HEPARINASE IN ALL CHANNELS) STAT 10/26/2024 10:36 PM EDT POC GLU MONITORING DEVICE Routine 10/26/2024 10:14 PM EDT POC GLU MONITORING DEVICE Routine 10/26/2024 9:16 PM EDT POC GLU MONITORING DEVICE Routine 10/26/2024 8:05 PM EDT POC GLU MONITORING DEVICE Routine 10/26/2024 7:02 PM EDT POC GLU MONITORING DEVICE Routine 10/26/2024 6:33 PM EDT TRANSFUSE CRYOPRECIPITATE Routine 10/26/2024 6:23 PM EDT POC GLU MONITORING DEVICE Routine 10/26/2024 6:17 PM EDT TRANSFUSE CRYOPRECIPITATE Routine 10/26/2024 6:12 PM EDT POC GLU MONITORING DEVICE Routine 10/26/2024 4:58 PM EDT HEPATIC FUNCTION PANEL Routine 4:42 PM EDT LACTIC ACID Routine 10/26/2024 4:42 PM EDT RENAL FUNCTION PANEL W/EGFR Routine 10/26/2024 4:42 PM EDT CALCIUM FREE, SERUM STAT 10/26/2024 4 :42 PM EDT REPEAT CROSSMATCH (RECIPIENT SAMPLE) Routine 10/26/2024 4:42 PM EDT PROTIME-INR Routine 10/26/2024 4:42 PM EDT CBC Routine 10/26/2024 4:42 PM EDT MAGNESIUM Routine 10/26/2024 4:42 PM EDT POC GLU MONITORING DEVICE Routine 10/26/2024 3:54 PM EDT POC GLU MONITORING DEVICE Routine 10/26/2024 3:06 PM EDT TEG-BYPASS/ECMO/LIVER HN (FACTOR FUNCTION, PLATELET/FIBRIN CLOT STRENGTH W/CLOT BREAKDOWN, HEPARINASE IN ALL CHANNELS) STAT 10/26/2024 3:03 PM EDT ECG 12-LEAD (MUSE) STAT 10/26/2024 2: 19 PM EDT POC GLU MONITORING DEVICE Routine 10/26/2024 2:00 PM EDT POC GLU MONITORING DEVICE Routine 10/26/2024 1:05 PM EDT POC GLU MONITORING DEVICE Routine 10/26/2024 12:06 PM EDT TRANSFUSE CRYOPRECIPITATE Routine 10/26/2024 12:06 PM EDT TRANSFUSE CRYOPRECIPITATE Routine 10/26/2024 11:49 AM EDT HEPATIC FUNCTION PANEL Routine 10:48 AM EDT LACTIC ACID Routine 10/26/2024 10:48 AM EDT RENAL FUNCTION PANEL W/EGFR Routine 10/26/2024 10:48 AM EDT PROTIME-INR Routine 10/26/2024 10:48 AM EDT CBC Routine 10/26/2024 10:48 AM EDT MAGNESIUM Routine 10/26/2024 10:48 AM EDT BLOOD GAS, ARTERIAL STAT 10/26/2024 10:48 AM EDT POC GLU MONITORING DEVICE Routine 10/26/2024 10:47 AM EDT CARISA RHYTHM STRIP - SCAN 10/26/2024 10:45 AM EDT POC GLU MONITORING DEVICE Routine 10/26/2024 10:08 AM EDT POC GLU MONITORING DEVICE Routine 10/26/2024 8:57 AM EDT ECG 12-LEAD (MUSE) STAT 10/26/2024 8: 16 AM EDT XR PORTABLE CHEST STAT 10/26/2024 8:1 3 AM EDT TEG-BYPASS/ECMO/LIVER HN (FACTOR FUNCTION, PLATELET/FIBRIN CLOT STRENGTH W/CLOT BREAKDOWN, HEPARINASE IN ALL CHANNELS) STAT 10/26/2024 7:59 AM EDT POC GLU MONITORING DEVICE Routine 10/26/2024 7:59 AM EDT POC GLU MONITORING DEVICE Routine 10/26/2024 6:12 AM EDT HEPATIC FUNCTION PANEL STAT 6:10 AM EDT LACTIC ACID STAT 10/26/2024 6:10 AM EDT RENAL FUNCTION PANEL W/EGFR STAT 10/26/2024 6:10 AM EDT PROTIME-INR STAT 10/26/2024 6:10 AM EDT FIBRINOGEN STAT 10/26/2024 6:10 AM EDT CBC STAT 10/26/2024 6:10 AM EDT MAGNESIUM STAT 10/26/2024 6:10 AM EDT BLOOD GAS, ARTERIAL STAT 10/26/2024 6 :10 AM EDT POCT INR Routine 10/26/2024 5:16 AM EDT POC LACTATE Routine 10/26/2024 5:14 AM EDT POC TCO2 Routine 10/26/2024 5:14 AM EDT POC SODIUM Routine 10/26/2024 5:14 AM EDT POC POTASSIUM Routine 10/26/2024 5:14 AM EDT POC PO2 Routine 10/26/2024 5:14 AM EDT POC PCO2 Routine 10/26/2024 5:14 AM EDT POC O2 SAT Routine 10/26/2024 5:14 AM EDT POC HCO3 Routine 10/26/2024 5:14 AM EDT POC CHLORIDE Routine 10/26/2024 5:14 AM EDT POC BASE EXCESS Routine 10/26/2024 5:14 AM EDT POC ANION GAP Routine 10/26/2024 5:14 AM EDT POC SAMPLE TYPE Routine 10/26/2024 5:14 AM EDT POCT PH Routine 10/26/2024 5:14 AM EDT POCT HEMATOCRIT Routine 10/26/2024 5:14 AM EDT POCT CALCIUM, TOTAL Routine 10/26/2024 5 :14 AM EDT POCT GLUCOSE Routine 10/26/2024 5:14 AM EDT POCT HEMOGLOBIN Routine 10/26/2024 5:14 AM EDT TRANSFUSE CRYOPRECIPITATE Routine 10/26/2024 4:37 AM EDT TRANSFUSE CRYOPRECIPITATE Routine 10/26/2024 4:37 AM EDT POCT INR Routine 10/26/2024 4:27 AM EDT POC LACTATE Routine 10/26/2024 4:24 AM EDT POC TCO2 Routine 10/26/2024 4:24 AM EDT POC SODIUM Routine 10/26/2024 4:24 AM EDT POC POTASSIUM Routine 10/26/2024 4:24 AM EDT POC PO2 Routine 10/26/2024 4:24 AM EDT POC PCO2 Routine 10/26/2024 4:24 AM EDT POC O2 SAT Routine 10/26/2024 4:24 AM EDT POC HCO3 Routine 10/26/2024 4:24 AM EDT POC CHLORIDE Routine 10/26/2024 4:24 AM EDT POC BASE EXCESS Routine 10/26/2024 4:24 AM EDT POC ANION GAP Routine 10/26/2024 4:24 AM EDT POC SAMPLE TYPE Routine 10/26/2024 4:24 AM EDT POCT PH Routine 10/26/2024 4:24 AM EDT POCT HEMATOCRIT Routine 10/26/2024 4:24 AM EDT POCT CALCIUM, TOTAL Routine 10/26/2024 4 :24 AM EDT POCT GLUCOSE Routine 10/26/2024 4:24 AM EDT POCT HEMOGLOBIN Routine 10/26/2024 4:24 AM EDT TRANSFUSE PLATELETS Routine 10/26/2024 4 :14 AM EDT TRANSFUSE FRESH FROZEN PLASMA Routine 10/26/2024 3:46 AM EDT POCT INR Routine 10/26/2024 3:34 AM EDT TEG-GLOBAL WITH LYSIS (BASELINE TEG WITH LY30, WILL NOT SHOW HEPARIN EFFECT) STAT 10/26/2024 3:31 AM EDT POC LACTATE Routine 10/26/2024 3:31 AM EDT POC TCO2 Routine 10/26/2024 3:31 AM EDT POC SODIUM Routine 10/26/2024 3:31 AM EDT POC POTASSIUM Routine 10/26/2024 3:31 AM EDT POC PO2 Routine 10/26/2024 3:31 AM EDT POC PCO2 Routine 10/26/2024 3:31 AM EDT POC O2 SAT Routine 10/26/2024 3:31 AM EDT POC HCO3 Routine 10/26/2024 3:31 AM EDT POC CHLORIDE Routine 10/26/2024 3:31 AM EDT POC BASE EXCESS Routine 10/26/2024 3:31 AM EDT POC ANION GAP Routine 10/26/2024 3:31 AM EDT POC SAMPLE TYPE Routine 10/26/2024 3:31 AM EDT POCT PH Routine 10/26/2024 3:31 AM EDT POCT HEMATOCRIT Routine 10/26/2024 3:31 AM EDT POCT CALCIUM, TOTAL Routine 10/26/2024 3 :31 AM EDT PROTIME-INR STAT 10/26/2024 3:31 AM EDT FIBRINOGEN STAT 10/26/2024 3:31 AM EDT CBC STAT 10/26/2024 3:31 AM EDT POCT GLUCOSE Routine 10/26/2024 3:31 AM EDT POCT HEMOGLOBIN Routine 10/26/2024 3:31 AM EDT TRANSFUSE FRESH FROZEN PLASMA Routine 10/26/2024 3:16 AM EDT TRANSFUSE FRESH FROZEN PLASMA Routine 10/26/2024 3:15 AM EDT TRANSFUSE RED BLOOD CELLS Routine 10/26/2024 3:13 AM EDT TRANSFUSE RED BLOOD CELLS Routine 10/26/2024 3:13 AM EDT TRANSFUSE RED BLOOD CELLS Routine 10/26/2024 2:39 AM EDT TRANSFUSE FRESH FROZEN PLASMA Routine 10/26/2024 2:38 AM EDT TRANSFUSE FRESH FROZEN PLASMA Routine 10/26/2024 2:23 AM EDT TRANSFUSE FRESH FROZEN PLASMA Routine 10/26/2024 2:01 AM EDT TRANSFUSE RED BLOOD CELLS Routine 10/26/2024 2:01 AM EDT TRANSFUSE RED BLOOD CELLS Routine 10/26/2024 1:45 AM EDT TRANSFUSE RED BLOOD CELLS Routine 10/26/2024 1:45 AM EDT POCT INR Routine 10/26/2024 1:43 AM EDT POC LACTATE Routine 10/26/2024 1:40 AM EDT POC TCO2 Routine 10/26/2024 1:40 AM EDT POC SODIUM Routine 10/26/2024 1:40 AM EDT POC POTASSIUM Routine 10/26/2024 1:40 AM EDT POC PO2 Routine 10/26/2024 1:40 AM EDT POC PCO2 Routine 10/26/2024 1:40 AM EDT POC O2 SAT Routine 10/26/2024 1:40 AM EDT POC HCO3 Routine 10/26/2024 1:40 AM EDT POC CHLORIDE Routine 10/26/2024 1:40 AM EDT POC BASE EXCESS Routine 10/26/2024 1:40 AM EDT POC ANION GAP Routine 10/26/2024 1:40 AM EDT POC SAMPLE TYPE Routine 10/26/2024 1:40 AM EDT TRANSFUSE FRESH FROZEN PLASMA Routine 10/26/2024 1:40 AM EDT POCT PH Routine 10/26/2024 1:40 AM EDT POCT HEMATOCRIT Routine 10/26/2024 1:40 AM EDT POCT CALCIUM, TOTAL Routine 10/26/2024 1 :40 AM EDT POCT GLUCOSE Routine 10/26/2024 1:40 AM EDT POCT HEMOGLOBIN Routine 10/26/2024 1:40 AM EDT TRANSFUSE RED BLOOD CELLS Routine 10/26/2024 1:39 AM EDT TRANSFUSE FRESH FROZEN PLASMA Routine 10/26/2024 1:17 AM EDT TRANSFUSE RED BLOOD CELLS Routine 10/26/2024 12:55 AM EDT POCT INR Routine 10/26/2024 12:41 AM EDT POC LACTATE Routine 10/26/2024 12:39 AM EDT POC TCO2 Routine 10/26/2024 12:39 AM EDT POC SODIUM Routine 10/26/2024 12:39 AM EDT POC POTASSIUM Routine 10/26/2024 12:39 AM EDT POC PO2 Routine 10/26/2024 12:39 AM EDT POC PCO2 Routine 10/26/2024 12:39 AM EDT POC O2 SAT Routine 10/26/2024 12:39 AM EDT POC HCO3 Routine 10/26/2024 12:39 AM EDT POC CHLORIDE Routine 10/26/2024 12:39 AM EDT POC BASE EXCESS Routine 10/26/2024 12:39 AM EDT POC ANION GAP Routine 10/26/2024 12:39 AM EDT POC SAMPLE TYPE Routine 10/26/2024 12:39 AM EDT POCT PH Routine 10/26/2024 12:39 AM EDT POCT HEMATOCRIT Routine 10/26/2024 12:39 AM EDT POCT CALCIUM, TOTAL Routine 10/26/2024 12:39 AM EDT POCT GLUCOSE Routine 10/26/2024 12:39 AM EDT POCT HEMOGLOBIN Routine 10/26/2024 12:39 AM EDT TRANSFUSE PLATELETS Routine 10/26/2024 12:33 AM EDT TRANSFUSE RED BLOOD CELLS Routine 10/26/2024 12:30 AM EDT TRANSFUSE FRESH FROZEN PLASMA Routine 10/26/2024 12:27 AM EDT TRANSFUSE FRESH FROZEN PLASMA Routine 10/26/2024 12:27 AM EDT ROUTINE CULTURE PLUS STAIN Routine 10/26/2024 12:03 AM EDT SURGICAL PATHOLOGY EXAM Routine 10/26/2024 12:00 AM EDT TRANSFUSE FRESH FROZEN PLASMA Routine 10/25/2024 11:46 PM EDT TRANSFUSE RED BLOOD CELLS Routine 10/25/2024 11:45 PM EDT TRANSFUSE RED BLOOD CELLS Routine 10/25/2024 11:45 PM EDT POCT INR Routine 10/25/2024 11:43 PM EDT POC LACTATE Routine 10/25/2024 11:40 PM EDT POC TCO2 Routine 10/25/2024 11:40 PM EDT POC SODIUM Routine 10/25/2024 11:40 PM EDT POC POTASSIUM Routine 10/25/2024 11:40 PM EDT POC PO2 Routine 10/25/2024 11:40 PM EDT POC PCO2 Routine 10/25/2024 11:40 PM EDT POC O2 SAT Routine 10/25/2024 11:40 PM EDT POC HCO3 Routine 10/25/2024 11:40 PM EDT POC CHLORIDE Routine 10/25/2024 11:40 PM EDT POC BASE EXCESS Routine 10/25/2024 11:40 PM EDT POC ANION GAP Routine 10/25/2024 11:40 PM EDT POC SAMPLE TYPE Routine 10/25/2024 11:40 PM EDT POCT PH Routine 10/25/2024 11:40 PM EDT POCT HEMATOCRIT Routine 10/25/2024 11:40 PM EDT POCT CALCIUM, TOTAL Routine 10/25/2024 11:40 PM EDT POCT GLUCOSE Routine 10/25/2024 11:40 PM EDT POCT HEMOGLOBIN Routine 10/25/2024 11:40 PM EDT URINE CULTURE Routine 10/25/2024 11:08 PM EDT LIVER-KIDNEY TRANSPLANT 10/25/2024 10:53 PM EDT Alcoholic cirrhosis of liver (CMS-HCC) XR PORTABLE CHEST STAT 10/25/2024 10:19 PM EDT HEPATITIS A ANTIBODY TOTAL Routine 10/25/2024 10:17 PM EDT HEPATIC FUNCTION PANEL STAT 10:17 PM EDT LACTIC ACID STAT 10/25/2024 10:17 PM EDT RENAL FUNCTION PANEL W/EGFR STAT 10/25/2024 10:17 PM EDT IRON STUDIES Routine 10/25/2024 10:17 PM EDT HEPATITIS B CORE ANTIBODY STAT 10/25/2024 10:17 PM EDT HEPATITIS C ANTIBODY STAT 10/25/2024 10:17 PM EDT DIFFERENTIAL STAT 10/25/2024 10:17 PM EDT HIV 1+2 ANTIBODY/ANTIGEN WITH REFLEX STAT 10/25/2024 10:17 PM EDT HEPATITIS B SURFACE ANTIBODY, QUANTITATIVE STAT 10/25/2024 10:17 PM EDT HEPATITIS B SURFACE ANTIGEN STAT 10/25/2024 10:17 PM EDT APTT STAT 10/25/2024 10:17 PM EDT PROTIME-INR STAT 10/25/2024 10:17 PM EDT CBC STAT 10/25/2024 10:17 PM EDT PTH, INTACT Routine 10/25/2024 10:17 PM EDT FERRITIN Routine 10/25/2024 10:17 PM EDT VENOUS BLOOD GAS, LINE/SYRINGE STAT 10/25/2024 10:00 PM EDT HLA ANTIBODY ID(POST TXP)DSA-HOXWORTH Routine 10/25/2024 10:00 PM EDT POC GLU MONITORING DEVICE Routine 10/25/2024 9:56 PM EDT ECG 12-LEAD (MUSE) STAT 10/25/2024 9: 34 PM EDT HEPATITIS C RNA, QUANTITATIVE REFLEX TO GENOTYPING Routine 10/25/2024 8:18 PM EDT TOXOPLASMA GONDII ANTIBODY, IGG STAT 10/25/2024 8:18 PM EDT URINALYSIS W/RFL TO MICROSCOPIC STAT 10/25/2024 8:18 PM EDT TEG-STANDARD GLOBAL HEMOSTASIS (RAPID TEG WITH HEPARIN EFFECT, CONTAINS A BASELINE) Routine 10/25/2024 7:46 PM EDT ABO/RH Routine 10/25/2024 7:46 PM EDT ANTIBODY SCREEN Routine 10/25/2024 7:46 PM EDT documented in this encounter Results * EKG - scan (11/03/2024 9:07 AM EDT) us Scanning [facility] SCAN DOCS - NO RESULTS Final Res ult * Blood Transfusion - scan (11/03/2024 8:24 AM EDT) us Scanning [facility] SCAN DOCS - NO RESULTS Final Res ult * Perfusion Record - scan (11/03/2024 8:24 AM EDT) us Scanning [facility] SCAN DOCS - NO RESULTS Final Res ult * (ABNORMAL) POC Glucose Monitoring Device (11/02/2024 5:44 PM EDT) POC Glucose Monitoring Device 180(H) 70 - 100 mg/dL 11/02/2024 5:45 PM EDT [facility] Blood 11/02/2024 5:44 PM EDT 11/02/2024 5:45 PM EDT us Harvey Domínguez III, MD POINT OF CARE TEST ORDERABLES Final Result [facility] [address] * (ABNORMAL) POC Glucose Monitoring Device (11/02/2024 3:34 PM EDT) POC Glucose Monitoring Device 208(H) 70 - 100 mg/dL 11/02/2024 3:35 PM EDT [facility] Blood 11/02/2024 3:34 PM EDT 11/02/2024 3:35 PM EDT Harvey Domínguez III, MD POINT OF CARE TEST ORDERABLES Final Result [facility] [address] * (ABNORMAL) POC Glucose Monitoring Device (11/02/2024 1:18 PM EDT) POC Glucose Monitoring Device 225(H) 70 - 100 mg/dL 11/02/2024 1:19 PM EDT [facility] Blood 11/02/2024 1:18 PM EDT 11/02/2024 1:19 PM EDT Harvey Domínguez III, MD POINT OF CARE TEST ORDERABLES Final Result Performing Organization Address [facility] Co de Phone Number [facility] [address] [place] [address]. [address] * (ABNORMAL) POC Glucose Monitoring Device (11/02/2024 8:59 AM EDT) POC Glucose Monitoring Device 129(H) 70 - 100 mg/dL 11/02/2024 9:00 AM EDT [facility] Blood 11/02/2024 8:59 AM EDT 11/02/2024 9:00 AM EDT Harvey Domínguez III, MD POINT OF CARE TEST ORDERABLES Final Result Performing Organization Address City/[facility] Co de Phone Number [facility] [address] * Tacrolimus level (11/02/2024 5:53 AM EDT) Tacrolimus (LC-MS) 7.4 3.0 - 15.0 ng/mL 11/02/2024 2:23 PM EDT [facility] Comment:Performed via liquid chromatography tandem mass spectrometry. Detection limit: 1 ng/mL. Individual target concentrations may vary due to target organ and time after transplant. This test has been developed and its performance characteristics determined by [facility] which is certified under the Clinical Laboratory Improvement Amendment of 1988 (CLIA-88) to perform high complexity testing. The test has not been cleared or approved by the US Food and Drug Administration (FDA). The FDA has determined that such clearance is not necessary. The test should be used for clinical purposes and is not regarded as investigational. Whole Blood 11/02/2024 5:53 AM EDT 11/02/2024 6:12 AM EDT us Hillary Fernandes PharmD LAB BLOOD ORDERABLES Denisse valle Result [facility] [address] [place] [address], [facility] * (ABNORMAL) Renal Function Panel w/EGFR (11/02/2024 5:53 AM EDT) Sodium 140 133 - 146 mmol/L 11/02/2024 6:47 AM EDT [facility] Potassium 3.3(L) 3.5 - 5.3 mmol/L 11/02/2024 6:47 AM EDT [facility] Chloride 107 98 - 110 mmol/L 11/02/2024 6:47 AM EDT [facility] CO2 25 21 - 33 mmol/L 11/02/2024 6:47 AM EDT [facility] Anion Gap 8 3 - 16 mmol/L 11/02/2024 6:47 AM EDT [facility] BUN 31(H) 7 - 25 mg/dL 11/02/2024 6:47 AM EDT [facility] Creatinine 1.08 0.60 - 1.30 mg/dL 11/02/2024 6:47 AM EDT [facility] Glucose 150(H) 70 - 100 mg/dL 11/02/2024 6:47 AM EDT [facility] Calcium 7.8(L) 8.6 - 10.3 mg/dL 11/02/2024 6:47 AM EDT [facility] Phosphorus 2.0(L) 2.1 - 4.7 mg/dL 11/02/2024 6:47 AM EDT [facility] Albumin 3.2(L) 3.5 - 5.7 g/dL 11/02/2024 6:47 AM EDT [facility] Osmolality, Calculated 299 278 - 305 mOsm/kg 11/02/2024 6:47 AM EDT [facility] EGFR 88 11/02/2024 6:47 AM EDT [facility] Comment:As of 2021, the estimated [...] Disease. Am J Kidney Dis. 2020. Plasma 11/02/2024 5:53 AM EDT 11/02/2024 6:12 AM EDT [employer] [facility] BLOOD ORDERABLES Denisse l Result Performing Organization Address City/[facility]/ZIP Co de Phone Number [facility] [address] [place] [address] * (ABNORMAL) Magnesium (11/02/2024 5:53 AM EDT) Magnesium 1.3(L) 1.5 - 2.5 mg/dL 11/02/2024 6:47 AM EDT [facility] Plasma 11/02/2024 5:53 AM EDT 11/02/2024 6:12 AM EDT [employer] LAB BLOOD ORDERABLES Denisse l Result Performing Organization Address [facility]/ZIP Co de Phone Number [facility] [address] * (ABNORMAL) Hepatic Function Panel (11/02/2024 5:53 AM EDT) Total Bilirubin 1.6(H) 0.0 - 1.5 mg/dL 11/02/2024 6:47 AM EDT [facility] Bilirubin, Direct 0.81(H) 0.00 - 0.40 mg/dL 11/02/2024 6:47 AM EDT [facility] AST 30 13 - 39 U/L 11/02/2024 6:47 AM EDT [facility] ALT 66(H) 7 - 52 U/L 11/02/2024 6:47 AM EDT [facility] Alkaline Phosphatase 126(H) 36 - 125 U/L 11/02/2024 6:47 AM EDT [facility] Total Protein 4.6(L) 6.4 - 8.9 g/dL 11/02/2024 6:47 AM EDT [facility] Albumin 3.2(L) 3.5 - 5.7 g/dL 11/02/2024 6:47 AM EDT [facility] Bilirubin, Indirect 0.79 0.00 - 1.10 mg/dL 11/02/2024 6:47 AM EDT [facility] Plasma 11/02/2024 5:53 AM EDT 11/02/2024 6:12 AM EDT Beata Horner [facility] BLOOD ORDERABLES Denisse valle Result Performing Organization Address City/State/[facility] Co de Phone Number [facility] [address] * (ABNORMAL) CBC (11/02/2024 5:53 AM EDT) WBC 5.8 3.8 - 10.8 10E3/uL 11/02/2024 6:21 AM EDT [facility] RBC 3.12(L) 4.20 - 5.80 10E6/uL 11/02/2024 6:21 AM EDT [facility] Hemoglobin 9.2(L) 13.2 - 17.1 g/dL 11/02/2024 6:21 AM EDT [facility] Hematocrit 27.5(L) 38.5 - 50.0 % 11/02/2024 6:21 AM EDT [facility] MCV 87.9 80.0 - 100.0 fL 11/02/2024 6:21 AM EDT [facility] MCH 29.5 27.0 - 33.0 pg 11/02/2024 6:21 AM EDT [facility] MCHC 33.5 32.0 - 36.0 g/dL 11/02/2024 6:21 AM EDT [facility] RDW 17.5(H) 11.0 - 15.0 % 11/02/2024 6:21 AM EDT [facility] Platelets 61(L) 140 - 400 10E3/uL 11/02/2024 6:21 AM EDT [facility] MPV 7.9 7.5 - 11.5 fL 11/02/2024 6:21 AM EDT [facility] Whole Blood 11/02/2024 5:53 AM EDT 11/02/2024 6:12 AM EDT us Beata Horner [facility] LAB BLOOD ORDERABLES Denisse l Result [facility] [address] * (ABNORMAL) POC Glucose Monitoring Device (11/01/2024 9:26 PM EDT) POC Glucose Monitoring Device 199(H) 70 - 100 mg/dL 11/01/2024 9:27 PM EDT [facility] Blood 11/01/2024 9:26 PM EDT 11/01/2024 9:27 PM EDT Harvey Domínguez III, MD POINT OF CARE TEST ORDERABLES Final Result [facility] [address] * (ABNORMAL) POC Glucose Monitoring Device (11/01/2024 5:04 PM EDT) POC Glucose Monitoring Device 255(H) 70 - 100 mg/dL 11/01/2024 5:05 PM EDT [facility] Blood 11/01/2024 5:04 PM EDT 11/01/2024 5:05 PM EDT Harvey Domínguez III, MD POINT OF CARE TEST ORDERABLES Final Result [facility] [address] [place] [address], [facility] * (ABNORMAL) Renal Function Panel w/EGFR, STAT (11/01/2024 2:17 PM EDT) Sodium 139 133 - 146 mmol/L 11/01/2024 3:10 PM EDT [facility] Potassium 3.3(L) 3.5 - 5.3 mmol/L 11/01/2024 3:10 PM EDT [facility] Chloride 107 98 - 110 mmol/L 11/01/2024 3:10 PM EDT [facility] CO2 24 21 - 33 mmol/L 11/01/2024 3:10 PM EDT [facility] Anion Gap 8 3 - 16 mmol/L 11/01/2024 3:10 PM EDT [facility] BUN 35(H) 7 - 25 mg/dL 11/01/2024 3:10 PM EDT [facility] Creatinine 1.22 0.60 - 1.30 mg/dL 11/01/2024 3:10 PM EDT [facility] Glucose 203(H) 70 - 100 mg/dL 11/01/2024 3:10 PM EDT [facility] Calcium 8.3(L) 8.6 - 10.3 mg/dL 11/01/2024 3:10 PM EDT [facility] Phosphorus 2.2 2.1 - 4.7 mg/dL 11/01/2024 3:10 PM EDT [facility] Albumin 3.4(L) 3.5 - 5.7 g/dL 11/01/2024 3:10 PM EDT [facility] Osmolality, Calculated 302 278 - 305 mOsm/kg 11/01/2024 3:10 PM EDT [facility] EGFR 76 11/01/2024 3:10 PM EDT [facility] Comment:As of 2021, the estimated [...] Disease. Am J Kidney Dis. 2020. Plasma 11/01/2024 2:17 PM EDT 11/01/2024 2:42 PM EDT us Carlos Marks MD LAB BLOOD ORDERABLES Final Result Performing Organization Address City/State/[facility] Co de Phone Number [facility] [address] [place] [address], [facility] * X-ray Portable Abdomen AP view (11/01/2024 12:34 PM EDT) Anatomical Region Laterality Modality Abdomen Radiographic Rachel ging 11/01/2024 11:1 5 AM EDT Impressions 11/01/2024 1:10 PM EDT IMPRESSION: Moderate colonic stool burden in a nonobstructive bowel gas pattern. No visualized enteric contrast. I have personally reviewed the images and I agree with this report. Report Verified by: Edi Arredondo MD at 11/01/2024 1:10 PM EDT Narrative 11/01/2024 1:10 PM EDT EXAM: XR PORTABLE ABDOMEN AP INDICATION: Contrast progression TECHNIQUE: 2 views of the abdomen COMPARISON: CT abdomen/pelvis 20 hours prior FINDINGS: Multiple surgical jerry over the midline and right hemiabdomen. Additional surgical clips projecting over the right upper quadrant. Embolization material projecting over the left upper quadrant. Ureteral stent projects over the right hemipelvis. Bowel gas is visualized within multiple loops of nondistended small and large bowel. No enteric contrast is visualized. Moderate colonic stool burden. Procedure Note Religion, Shakib, MD - 11/01/2024 EXAM: XR PORTABLE ABDOMEN AP INDICATION: Contrast progression TECHNIQUE: 2 views of the abdomen COMPARISON: CT abdomen/pelvis 20 hours prior FINDINGS: Multiple surgical jerry over the midline and right hemiabdomen.Additional surgical clips projecting over the right upper quadrant.Embolization material projecting over the left upper quadrant. Ureteralstent projects over the right hemipelvis. Bowel gas is visualized within multiple loops of nondistended small andlarge bowel. No enteric contrast is visualized. Moderate colonic stoolburden. IMPRESSION: Moderate colonic stool burden in a nonobstructive bowel gas pattern. Novisualized enteric contrast. I have personally reviewed the images and I agree with this report. Report Verified by: Edi Arredondo MD at 11/01/2024 1:10 PM EDT Shay Plata MD IMG DIAGNOSTIC IMAGI NG ORDERABLES Final Result * (ABNORMAL) POC Glucose Monitoring Device (11/01/2024 12:22 PM EDT) POC Glucose Monitoring Device 144(H) 70 - 100 mg/dL 11/01/2024 12:23 PM EDT [facility] Blood 11/01/2024 12:2 2 PM EDT 11/01/2024 12:23 PM EDT Harvey Domínguez III, MD POINT OF CARE TEST ORDERABLES Final Result Performing Organization Address City/State/[facility] Co de Phone Number [facility] [address] [place], [place] [address] * (ABNORMAL) POC Glucose Monitoring Device (11/01/2024 8:50 AM EDT) POC Glucose Monitoring Device 175(H) 70 - 100 mg/dL 11/01/2024 8:51 AM EDT [facility] Blood 11/01/2024 8:50 AM EDT 11/01/2024 8:51 AM EDT Harvey Domínguez III, MD POINT OF CARE TEST ORDERABLES Final Result [facility] [address] [facility]. [address] * Tacrolimus level (11/01/2024 6:01 AM EDT) Pathologist [facility] Tacrolimus (LC-MS) 7.5 3.0 - 15.0 ng/mL 11/01/2024 12:14 PM EDT [facility] Comment:Performed via liquid chromatography tandem mass spectrometry. Detection limit: 1 ng/mL. Individual target concentrations may vary due to target organ and time after transplant. This test has been developed and its performance characteristics determined by [facility] which is certified under the Clinical Laboratory Improvement Amendment of 1988 (CLIA-88) to perform high complexity testing. The test has not been cleared or approved by the US Food and Drug Administration (FDA). The FDA has determined that such clearance is not necessary. The test should be used for clinical purposes and is not regarded as investigational. Whole Blood 11/01/2024 6:01 AM EDT 11/01/2024 6:19 AM EDT Hillary Fernandes PharmD LAB BLOOD ORDERABLES Denisse l Result Performing Organization Address [facility] Co de Phone Number [facility] [address] [facility]. [address] * (ABNORMAL) Renal Function Panel w/EGFR (11/01/2024 6:01 AM EDT) Pathologist [facility] Sodium 139 133 - 146 mmol/L 11/01/2024 6:57 AM EDT [facility] Potassium 3.3(L) 3.5 - 5.3 mmol/L 11/01/2024 6:57 AM EDT [facility] Chloride 108 98 - 110 mmol/L 11/01/2024 6:57 AM EDT [facility] CO2 22 21 - 33 mmol/L 11/01/2024 6:57 AM EDT [facility] Anion Gap 9 3 - 16 mmol/L 11/01/2024 6:57 AM EDT [facility] BUN 37(H) 7 - 25 mg/dL 11/01/2024 6:57 AM EDT [facility] Creatinine 1.30 0.60 - 1.30 mg/dL 11/01/2024 6:57 AM EDT [facility] Glucose 163(H) 70 - 100 mg/dL 11/01/2024 6:57 AM EDT [facility] Calcium 8.2(L) 8.6 - 10.3 mg/dL 11/01/2024 6:57 AM EDT [facility] Phosphorus 2.9 2.1 - 4.7 mg/dL 11/01/2024 6:57 AM EDT [facility] Albumin 3.1(L) 3.5 - 5.7 g/dL 11/01/2024 6:57 AM EDT [facility] Osmolality, Calculated 300 278 - 305 mOsm/kg 11/01/2024 6:57 AM EDT [facility] EGFR 71 11/01/2024 6:57 AM EDT [facility] Comment:As of 2021, the estimated [...] Disease. Am J Kidney Dis. 2020. Plasma 11/01/2024 6:01 AM EDT 11/01/2024 6:20 AM EDT us Beata Horner [employer] LAB BLOOD ORDERABLES Denisse valle Result [facility] [address] [place] [address], [facility] * Magnesium (11/01/2024 6:01 AM EDT) Magnesium 1.5 1.5 - 2.5 mg/dL 11/01/2024 6:57 AM EDT [facility] Plasma 11/01/2024 6:01 AM EDT 11/01/2024 6:20 AM EDT [employer]ata [employer] LAB BLOOD ORDERABLES Denisse l Result Performing Organization Address [facility] Co de Phone Number [facility] [address] * (ABNORMAL) Hepatic Function Panel (11/01/2024 6:01 AM EDT) Total Bilirubin 2.0(H) 0.0 - 1.5 mg/dL 11/01/2024 6:57 AM EDT [facility] Bilirubin, Direct 1.06(H) 0.00 - 0.40 mg/dL 11/01/2024 6:57 AM EDT [facility] AST 21 13 - 39 U/L 11/01/2024 6:57 AM EDT [facility] ALT 62(H) 7 - 52 U/L 11/01/2024 6:57 AM EDT [facility] Alkaline Phosphatase 114 36 - 125 U/L 11/01/2024 6:57 AM EDT [facility] Total Protein 4.6(L) 6.4 - 8.9 g/dL 11/01/2024 6:57 AM EDT [facility] Albumin 3.1(L) 3.5 - 5.7 g/dL 11/01/2024 6:57 AM EDT [facility] Bilirubin, Indirect 0.94 0.00 - 1.10 mg/dL 11/01/2024 6:57 AM EDT [facility] Plasma 11/01/2024 6:01 AM EDT 11/01/2024 6:20 AM EDT Beata Horner [employer] LAB BLOOD ORDERABLES Denisse l Result [facility] [address] [facility]. [address] * (ABNORMAL) CBC (11/01/2024 6:01 AM EDT) WBC 5.9 3.8 - 10.8 10E3/uL 11/01/2024 6:29 AM EDT [facility] RBC 3.19(L) 4.20 - 5.80 10E6/uL 11/01/2024 6:29 AM EDT [facility] Hemoglobin 9.5(L) 13.2 - 17.1 g/dL 11/01/2024 6:29 AM EDT [facility] Hematocrit 27.8(L) 38.5 - 50.0 % 11/01/2024 6:29 AM EDT [facility] MCV 87.1 80.0 - 100.0 fL 11/01/2024 6:29 AM EDT [facility] MCH 29.9 27.0 - 33.0 pg 11/01/2024 6:29 AM EDT [facility] MCHC 34.3 32.0 - 36.0 g/dL 11/01/2024 6:29 AM EDT [facility] RDW 17.4(H) 11.0 - 15.0 % 11/01/2024 6:29 AM EDT [facility] Platelets 56(L) 140 - 400 10E3/uL 11/01/2024 6:29 AM EDT [facility] MPV 8.3 7.5 - 11.5 fL 11/01/2024 6:29 AM EDT [facility] Whole Blood 11/01/2024 6:01 AM EDT 11/01/2024 6:19 AM EDT us [employer] LAB BLOOD ORDERABLES Denisse l Result [facility] [address] [place] [address], [facility] * (ABNORMAL) POC Glucose Monitoring Device (10/31/2024 9:15 PM EDT) POC Glucose Monitoring Device 171(H) 70 - 100 mg/dL 10/31/2024 9:15 PM EDT [facility] Blood 10/31/2024 9:15 PM EDT 10/31/2024 9:15 PM EDT Harvey Domínguez III, MD POINT OF CARE TEST ORDERABLES Final Result [facility] [address] * (ABNORMAL) POC Glucose Monitoring Device (10/31/2024 5:56 PM EDT) POC Glucose Monitoring Device 179(H) 70 - 100 mg/dL 10/31/2024 5:57 PM EDT [facility] Blood 10/31/2024 5:56 PM EDT 10/31/2024 5:57 PM EDT Harvey Domínguez III, MD POINT OF CARE TEST ORDERABLES Final Result Performing Organization Address City/[facility] Co de Phone Number [facility] [address] * CT Abdomen and Pelvis WO IV contrast (10/31/2024 4:08 PM EDT) Anatomical Region Laterality Modality Abdomen, Pelvis Computed Tomogra phy 10/31/2024 4:04 PM EDT Impressions 10/31/2024 4:38 PM EDT IMPRESSION: Limited examination without intravenous contrast. 1. Postsurgical changes of hepatic transplant. The transplant liver is unremarkable in this noncontrast study. Please also see same day ultrasound report. 2. Right lower quadrant renal transplant with a ureteral stent seen, the proximal tip of the ureteral stent is in the proximal/mid ureter and its distal tip is within the urinary bladder. Gas seen within the collecting systems of the right lower quadrant renal transplant and in the urinary bladder, this may be postsurgical/post procedural in etiology. Correlation with urinalysis would be useful. 3. Small bowel dilatation without a focal transition point seen, this is favored to represent ileus. 4. Small amount of free air in the abdomen is likely postsurgical in etiology. Report Verified by: Winnie Hollis MD at 10/31/2024 4:38 PM EDT Narrative 10/31/2024 4:38 PM EDT EXAM: CT ABDOMEN AND PELVIS WO IV CONTRAST INDICATION: Abdominal pain, post-op TECHNIQUE: CT of the abdomen and pelvis was performed without intravenous contrast. Axial images were obtained with coronal and sagittal reconstructions. CONTRAST: 50 mL of IOHEXOL 240 MG IODINE/ML INTRAVENOUS SOLUTION administered orally FIELD OF VIEW: 40 cm COMPARISON: Ultrasound abdomen from earlier today. MR abdomen 10/13/2024. FINDINGS: Limited examination without intravenous contrast. Lungs: Small right pleural effusion. Atelectasis in the visualized lung bases. Trace pericardial effusion. Liver: Postsurgical changes of hepatic transplant. The transplant liver is unremarkable on this noncontrast study. . Gallbladder and biliary tree: Gallbladder surgically absent. Limited evaluation of the biliary tree on this noncontrast study. Adrenal gland: No focal nodule seen. Kidneys: [place] kidneys noted with nonobstructing calcifications on the right. Findings of postsurgical changes in the left [place] kidney. Mild right hydronephrosis without an obstructive course seen. Right lower quadrant renal transplant. No hydronephrosis. Right lower quadrant renal transplant ureteral stent seen with its proximal tip in the proximal/mid ureter and its distal tip is within the urinary bladder. Gas seen within the collecting systems of the right lower quadrant renal transplant and in the urinary bladder. Mild thickening of the urinary bladder wall. Spleen: The spleen is enlarged measuring 22 cm in craniocaudal length. Pancreas: Unremarkable on this noncontrast study. Bowel: Dilated loops of small bowel without a focal transition point seen. No bowel wall thickening. Lymph nodes: No enlarged lymph nodes by size criteria in the abdomen or pelvis. Peritoneum/mesentery: Small amount of free air in the abdomen is likely to be postsurgical in etiology. Small to moderate volume ascites. There is a percutaneous drain in the left anterior abdominal wall with its tip inferior to the liver. Pelvis: Prostate is not enlarged. Vascular: No aneurysmal dilatation of the abdominal aorta. Soft tissues: Postsurgical changes in the anterior abdominal wall. Moderate body wall edema. Hyperdense material at the umbilicus and just deep to the umbilicus in the intraperitoneal space may represent small hematomas. Bilateral inguinal hernias containing fat and a small amount of fluid. Bones: No suspicious osseous lesions. Procedure Note Winnie Hollis MD - 06/20/2025 EXAM: CT ABDOMEN AND PELVIS WO IV CONTRAST INDICATION: Abdominal pain, post-op TECHNIQUE: CT of the abdomen and pelvis was performed without intravenouscontrast. Axial images were obtained with coronal and sagittalreconstructions. CONTRAST: 50 mL of IOHEXOL 240 MG IODINE/ML INTRAVENOUS SOLUTIONadministered orally FIELD OF VIEW: 40 cm COMPARISON: Ultrasound abdomen from earlier today. MR abdomen 10/13/2024. FINDINGS: Limited examination without intravenous contrast. Lungs: Small right pleural effusion. Atelectasis in the visualized lungbases. Trace pericardial effusion. Liver: Postsurgical changes of hepatic transplant. The transplant liver isunremarkable on this noncontrast study. . Gallbladder and biliary tree: Gallbladder surgically absent. Limitedevaluation of the biliary tree on this noncontrast study. Adrenal gland: No focal nodule seen. Kidneys: [place] kidneys noted with nonobstructing calcifications on theright. Findings of postsurgical changes in the left [place] kidney. Mildright hydronephrosis without an obstructive course seen. Right lower quadrant renal transplant. No hydronephrosis. Right lowerquadrant renal transplant ureteral stent seen with its proximal tip in theproximal/mid ureter and its distal tip is within the urinary bladder. Gasseen within the collecting systems of the right lower quadrant renaltransplant and in the urinary bladder. Mild thickening of the urinarybladder wall. Spleen: The spleen is enlarged measuring 22 cm in craniocaudal length. Pancreas: Unremarkable on this noncontrast study. Bowel: Dilated loops of small bowel without a focal transition point seen.No bowel wall thickening. Lymph nodes: No enlarged lymph nodes by size criteria in the abdomen orpelvis. Peritoneum/mesentery: Small amount of free air in the abdomen is likely nica postsurgical in etiology. Small to moderate volume ascites. There is apercutaneous drain in the left anterior abdominal wall with its tipinferior to the liver. Pelvis: Prostate is not enlarged. Vascular: No aneurysmal dilatation of the abdominal aorta. Soft tissues: Postsurgical changes in the anterior abdominal wall.Moderate body wall edema. Hyperdense material at the umbilicus and justdeep to the umbilicus in the intraperitoneal space may represent smallhematomas. Bilateral inguinal hernias containing fat and a small amount offluid. Bones: No suspicious osseous lesions. IMPRESSION: Limited examination without intravenous contrast. 1. Postsurgical changes of hepatic transplant. The transplant liver isunremarkable in this noncontrast study. Please also see same dayultrasound report. 2. Right lower quadrant renal transplant with a ureteral stent seen, theproximal tip of the ureteral stent is in the proximal/mid ureter and itsdistal tip is within the urinary bladder. Gas seen within the collectingsystems of the right lower quadrant renal transplant and in the urinarybladder, this may be postsurgical/post procedural in etiology. Correlationwith urinalysis would be useful. 3. Small bowel dilatation without a focal transition point seen, this isfavored to represent ileus. 4. Small amount of free air in the abdomen is likely postsurgical inetiology. Report Verified by: Winnie Hollis MD at 10/31/2024 4:38 PM EDT Sveta Judge MD IMG CT ORDERABLES Final Result * ECG 12-lead (MUSE) (10/31/2024 3:42 PM EDT) 10/31/2024 3:42 PM EDT Narrative MUSE - 11/02/2024 6:56 AM EDT Ventricular Rate: 78 BPM Atrial Rate: 78 BPM P-R Interval: 166 ms QRS Duration: 88 ms QT: 400 ms QTc: 456 ms P [place]: 49 degrees R [place]: 3 degrees T [place]: 14 degrees Diagnosis Line: NORMAL SINUS RHYTHM ^ NORMAL ECG ^ ^ Confirmed by MD REID JAMES ([id number]) on 11/02/2024 6:56:52 AM Priti Geiger CNP ECG ORDERABLES Final Result MUSE * (ABNORMAL) Urinalysis w/Rfl to Microscopic (10/31/2024 1:18 PM EDT) Color, UA Straw Yellow,Straw 10/31/2024 1:46 PM EDT [facility] Clarity, UA Clear Clear 10/31/2024 1:46 PM EDT [facility] Specific [place], UA 1.013 1.005 - 1.035 10/31/2024 1:46 PM EDT [facility] pH, UA 6.5 5.0 - 8.0 10/31/2024 1:46 PM EDT [facility] Protein, UA Negative Negative mg/dL 10/31/2024 1:46 PM EDT [facility] Glucose, UA Negative Negative mg/dL 10/31/2024 1:46 PM EDT [facility] Ketones, UA Negative Negative mg/dL 10/31/2024 1:46 PM EDT [facility] Bilirubin, UA Negative Negative 10/31/2024 1:46 PM EDT [facility] Blood, UA Large(A) Negative 10/31/2024 1:46 PM EDT [facility] Nitrite, UA Negative Negative 10/31/2024 1:46 PM EDT [facility] Urobilinogen, UA <2.0 0.2 - 1.9 mg/dL 10/31/2024 1:46 PM EDT [facility] Leukocyte Esterase, UA Negative Negative 10/31/2024 1:46 PM EDT [facility] RBC, UA >100(H) 0 - 3 /HPF 10/31/2024 1:46 PM EDT [facility] WBC, UA 3 0 - 5 /HPF 10/31/2024 1:46 PM EDT [facility] Hyaline Casts, UA 3(H) 0 - 2 /LPF 10/31/2024 1:46 PM EDT [facility] Urine 10/31/2024 1:18 PM EDT 10/31/2024 1:32 PM EDT Priti Geiger [facility] URINE ORDERABLES Final Result Performing Organization Address City/State/[facility] Co de Phone Number [facility] [address] * (ABNORMAL) Post Kidney Transplant Urine Culture (10/31/2024 1:18 PM EDT) Culture Result Enterococcus faecium, Vancomycin Resistant(A) [facility] Comment: 1,000- <10,000 cfu/mL Identified by MALDI-TOF MS Testing Performed at Laboratory The critical result was called to, and read back by, licensed caregiver Rickey Lin RN 11/02/24 0850 [place] Midstream Urine URINE SPECIMEN / Unknown 10/31/2024 1:18 PM EDT 10/31/2024 1:59 PM EDT Narrative Organism Antibiotic Method Susceptibility Enterococcus faecium, vancomycin resistant Ampicillin SARMAD >=32: Resistant Enterococcus faecium, vancomycin resistant Doxycycline SARMAD >=16: Resistant Enterococcus faecium, vancomycin resistant Linezolid SARMAD 2: Susceptible Enterococcus faecium, vancomycin resistant Nitrofurant oin SARMAD 64: Intermediate Enterococcus faecium, vancomycin resistant Vancomycin SARMAD >=32: Resistant Comment:See Results Priti Geiger [employer] MICROBIOLOGY - GENERAL ORDERA BLES Final Result Performing Organization Address [facility] Co de Phone Number [facility] [address] * (ABNORMAL) POC Glucose Monitoring Device (10/31/2024 11:59 AM EDT) [facility] POC Glucose Monitoring Device 130(H) 70 - 100 mg/dL 10/31/2024 12:21 PM EDT [facility] Blood 10/31/2024 11:5 9 AM EDT 10/31/2024 12:21 PM EDT Harvey Domínguez III, MD POINT OF CARE TEST ORDERABLES Final Result Performing Organization Address [facility] Co de Phone Number [facility] [address] [facility]. [address] * US Abdomen Limited (10/31/2024 10:19 AM EDT) Anatomical Region Laterality Modality Abdomen, Pelvis Ultrasound 10/31/2024 9:21 AM EDT Impressions 10/31/2024 10:35 AM EDT IMPRESSION: RIGHT UPPER QUADRANT Normal sonographic appearance of the transplant liver with small volume of ascites. LIVER DOPPLER Duplex Doppler evaluation of transplant hepatic vasculature within normal limits. Report Verified by: Declan Cerda MD at 10/31/2024 10:35 AM EDT Narrative 10/31/2024 10:35 AM EDT EXAM: US ABDOMEN LIMITED EXAM: US DUPLEX [id number] COMPLETE INDICATION: Post-op liver transplant COMPARISON: None TECHNIQUE: Grayscale sonographic imaging was performed with attention to the right upper quadrant; color and spectral (duplex) Doppler analysis of the hepatic vasculature was also performed. FINDINGS: The transplant liver parenchyma is within normal limits in echogenicity and echotexture. No focal lesions seen on imaging provided. No evidence of biliary ductal dilation. The common duct measures 4 mm. No significant perihepatic fluid collections. Small volume of ascites. Right-sided pleural effusion. Pancreas and aorta are not well visualized secondary to poor acoustic windows. The [place] right kidney measures 11.6 cm in length. There is mild pyelocaliectasis. Imaging of the renal transplant with be reported separately. On duplex Doppler imaging there is hepatopedal flow in the main portal vein. Velocities measure up to 102.8 cm/s. Normal-appearing hepatopedal flow is seen in the intrahepatic right and left portal veins. Spectral duplex Doppler hepatic arterial waveforms are within normal limits in morphology. In the main hepatic artery the resistive index measures up to 0.61. In the right hepatic artery the resistive index measures up to 0.60. In the left hepatic artery the resistive index measures up to 0.73. Hepatic venous waveforms are normal. Flow is present in the intrahepatic portion of the IVC. Procedure Note Declan Cerda MD - 10/31/2024 EXAM: US ABDOMEN LIMITED EXAM: US DUPLEX [id number] COMPLETE INDICATION: Post-op liver transplant COMPARISON: None TECHNIQUE: Grayscale sonographic imaging was performed with attention tothe right upper quadrant; color and spectral (duplex) Doppler analysis ofthe hepatic vasculature was also performed. FINDINGS: The transplant liver parenchyma is within normal limits in echogenicityand echotexture. No focal lesions seen on imaging provided. No evidence ofbiliary ductal dilation. The common duct measures 4 mm. No significantperihepatic fluid collections. Small volume of ascites. Right-sidedpleural effusion. Pancreas and aorta are not well visualized secondary to poor acousticwindows. The [place] right kidney measures 11.6 cm in length. There is mildpyelocaliectasis. Imaging of the renal transplant with be reportedseparately. On duplex Doppler imaging there is hepatopedal flow in the main portalvein. Velocities measure up to 102.8 cm/s. Normal-appearing hepatopedalflow is seen in the intrahepatic right and left portal veins. Spectral duplex Doppler hepatic arterial waveforms are within normallimits in morphology. In the main hepatic artery the resistive indexmeasures up to 0.61. In the right hepatic artery the resistive indexmeasures up to 0.60. In the left hepatic artery the resistive indexmeasures up to 0.73. Hepatic venous waveforms are normal. Flow is present in the intrahepaticportion of the IVC. IMPRESSION: RIGHT UPPER QUADRANT Normal sonographic appearance of the transplant liver with small volume ofascites. LIVER DOPPLER Duplex Doppler evaluation of transplant hepatic vasculature within normallimits. Report Verified by: Declan Cerda MD at 10/31/2024 10:35 AM EDT us Beata Horner [employer] IM[employer] US ORDERABLES Final R esult * US Renal Transplant (10/31/2024 10:19 AM EDT) Anatomical Region Laterality Modality Abdomen, Pelvis Ultrasound 10/31/2024 9:21 AM EDT Impressions 10/31/2024 10:29 AM EDT IMPRESSION: 1. Findings most compatible with small amount of gas within the transplant renal collecting system. Otherwise normal exam. Report Verified by: Declan Cerda MD at 10/31/2024 10:29 AM EDT Narrative 10/31/2024 10:29 AM EDT EXAM: US RENAL TRANSPLANT INDICATION: Other - Must specify in Comments field; kidney transplant COMPARISON: None TECHNIQUE: Grayscale sonographic imaging acquisition was performed of the transplanted kidney and urinary bladder with limited color and spectral (duplex) Doppler analysis of the renal vasculature. FINDINGS: Renal transplant is localized in the right lower quadrant. It measures 5.4 x 11.9 x 4.8 cm. The cortex is normal in echogenicity and thickness. Echogenic foci with acoustic shadowing are present within the intrarenal collecting system. This may represent a small amount of iatrogenic gas. No perinephric fluid collections are seen. Limited imaging of the urinary bladder is unremarkable. The distal portion of a ureteral stent is present within the bladder lumen. On duplex Doppler imaging the intrarenal arterial resistive indices range from 0.63-0.73. Arterial and venous waveforms in the renal hilar vasculature are within normal limits. Procedure Note Declan Cerda MD - 10/31/2024 EXAM: US RENAL TRANSPLANT INDICATION: Other - Must specify in Comments field; kidney transplant COMPARISON: None TECHNIQUE: Grayscale sonographic imaging acquisition was performed of thetransplanted kidney and urinary bladder with limited color and spectral(duplex) Doppler analysis of the renal vasculature. FINDINGS: Renal transplant is localized in the right lower quadrant. It measures 5.4x 11.9 x 4.8 cm. The cortex is normal in echogenicity and thickness.Echogenic foci with acoustic shadowing are present within the intrarenalcollecting system. This may represent a small amount of iatrogenic gas. Noperinephric fluid collections are seen. Limited imaging of the urinary bladder is unremarkable. The distal portionof a ureteral stent is present within the bladder lumen. On duplex Doppler imaging the intrarenal arterial resistive indices rangefrom 0.63-0.73. Arterial and venous waveforms in the renal hilarvasculature are within normal limits. IMPRESSION: 1. Findings most compatible with small amount of gas within thetransplant renal collecting system. Otherwise normal exam. Report Verified by: Declan Cerda MD at 10/31/2024 10:29 AM EDT us Beata Horner [facility] IMG US ORDERABLES Final R esult * US Duplex [id number] Comp (10/31/2024 10:19 AM EDT) Anatomical Region Laterality Modality Abdomen, Pelvis, Testes, Vascular Ultrasound 10/31/2024 9:21 AM EDT Impressions 10/31/2024 10:35 AM EDT IMPRESSION: RIGHT UPPER QUADRANT Normal sonographic appearance of the transplant liver with small volume of ascites. LIVER DOPPLER Duplex Doppler evaluation of transplant hepatic vasculature within normal limits. Report Verified by: Declan Cerda MD at 10/31/2024 10:35 AM EDT Narrative 10/31/2024 10:35 AM EDT EXAM: US ABDOMEN LIMITED EXAM: US DUPLEX [id number] COMPLETE INDICATION: Post-op liver transplant COMPARISON: None TECHNIQUE: Grayscale sonographic imaging was performed with attention to the right upper quadrant; color and spectral (duplex) Doppler analysis of the hepatic vasculature was also performed. FINDINGS: The transplant liver parenchyma is within normal limits in echogenicity and echotexture. No focal lesions seen on imaging provided. No evidence of biliary ductal dilation. The common duct measures 4 mm. No significant perihepatic fluid collections. Small volume of ascites. Right-sided pleural effusion. Pancreas and aorta are not well visualized secondary to poor acoustic windows. The [place] right kidney measures 11.6 cm in length. There is mild pyelocaliectasis. Imaging of the renal transplant with be reported separately. On duplex Doppler imaging there is hepatopedal flow in the main portal vein. Velocities measure up to 102.8 cm/s. Normal-appearing hepatopedal flow is seen in the intrahepatic right and left portal veins. Spectral duplex Doppler hepatic arterial waveforms are within normal limits in morphology. In the main hepatic artery the resistive index measures up to 0.61. In the right hepatic artery the resistive index measures up to 0.60. In the left hepatic artery the resistive index measures up to 0.73. Hepatic venous waveforms are normal. Flow is present in the intrahepatic portion of the IVC. Procedure Note Declan Cerda MD - 10/31/2024 EXAM: US ABDOMEN LIMITED EXAM: US DUPLEX [id number] COMPLETE INDICATION: Post-op liver transplant COMPARISON: None TECHNIQUE: Grayscale sonographic imaging was performed with attention tothe right upper quadrant; color and spectral (duplex) Doppler analysis ofthe hepatic vasculature was also performed. FINDINGS: The transplant liver parenchyma is within normal limits in echogenicityand echotexture. No focal lesions seen on imaging provided. No evidence ofbiliary ductal dilation. The common duct measures 4 mm. No significantperihepatic fluid collections. Small volume of ascites. Right-sidedpleural effusion. Pancreas and aorta are not well visualized secondary to poor acousticwindows. The [place] right kidney measures 11.6 cm in length. There is mildpyelocaliectasis. Imaging of the renal transplant with be reportedseparately. On duplex Doppler imaging there is hepatopedal flow in the main portalvein. Velocities measure up to 102.8 cm/s. Normal-appearing hepatopedalflow is seen in the intrahepatic right and left portal veins. Spectral duplex Doppler hepatic arterial waveforms are within normallimits in morphology. In the main hepatic artery the resistive indexmeasures up to 0.61. In the right hepatic artery the resistive indexmeasures up to 0.60. In the left hepatic artery the resistive indexmeasures up to 0.73. Hepatic venous waveforms are normal. Flow is present in the intrahepaticportion of the IVC. IMPRESSION: RIGHT UPPER QUADRANT Normal sonographic appearance of the transplant liver with small volume ofascites. LIVER DOPPLER Duplex Doppler evaluation of transplant hepatic vasculature within normallimits. Report Verified by: Declan Cerda MD at 10/31/2024 10:35 AM EDT Beata Horner [employer] US ORDERABLES Final R esult * ECG 12-lead (MUSE) (10/31/2024 8:57 AM EDT) 10/31/2024 8:57 AM EDT Narrative MUSE - 11/01/2024 9:21 AM EDT Ventricular Rate: 83 BPM Atrial Rate: 83 BPM P-R Interval: 168 ms QRS Duration: 102 ms QT: 392 ms QTc: 460 ms P [place]: 64 degrees R [place]: -18 degrees T [place]: 7 degrees Diagnosis Line: NORMAL SINUS RHYTHM ^ NORMAL ECG ^ ^ Confirmed by MD JOE, ANISIIA ([id number]) on 11/01/2024 9:21:13 AM Priti Geiger [facility] ECG ORDERABLES Final Result MUSE * (ABNORMAL) POC Glucose Monitoring Device (10/31/2024 8:44 AM EDT) [facility] POC Glucose Monitoring Device 145(H) 70 - 100 mg/dL 10/31/2024 8:45 AM EDT HEALTH LAB Blood 10/31/2024 8:44 AM EDT 10/31/2024 8:44 AM EDT Harvey Domínguez III, MD POINT OF CARE TEST ORDERABLES Final Result [facility] [address] [place] [address], [facility] * Tacrolimus level (10/31/2024 6:40 AM EDT) Pathologist [facility] Tacrolimus (LC-MS) 8.4 3.0 - 15.0 ng/mL 10/31/2024 10:05 AM EDT [facility] Comment:Performed via liquid chromatography tandem mass spectrometry. Detection limit: 1 ng/mL. Individual target concentrations may vary due to target organ and time after transplant. This test has been developed and its performance characteristics determined by [facility] which is certified under the Clinical Laboratory Improvement Amendment of 1988 (CLIA-88) to perform high complexity testing. The test has not been cleared or approved by the US Food and Drug Administration (FDA). The FDA has determined that such clearance is not necessary. The test should be used for clinical purposes and is not regarded as investigational. Whole Blood 10/31/2024 6:40 AM EDT 10/31/2024 7:43 AM EDT Hillary Fernandes PharmD LAB BLOOD ORDERABLES Denisse valle Result [facility] [address] * (ABNORMAL) Renal Function Panel w/EGFR (10/31/2024 6:40 AM EDT) [facility] Sodium 141 133 - 146 mmol/L 10/31/2024 8:09 AM EDT [facility] Potassium 3.5 3.5 - 5.3 mmol/L 10/31/2024 8:09 AM EDT [facility] Chloride 111(H) 98 - 110 mmol/L 10/31/2024 8:09 AM EDT [facility] CO2 20(L) 21 - 33 mmol/L 10/31/2024 8:09 AM EDT [facility] Anion Gap 10 3 - 16 mmol/L 10/31/2024 8:09 AM EDT [facility] BUN 54(H) 7 - 25 mg/dL 10/31/2024 8:09 AM EDT [facility] Creatinine 1.75(H) 0.60 - 1.30 mg/dL 10/31/2024 8:09 AM EDT [facility] Glucose 136(H) 70 - 100 mg/dL 10/31/2024 8:09 AM EDT [facility] Calcium 8.7 8.6 - 10.3 mg/dL 10/31/2024 8:09 AM EDT [facility] Phosphorus 4.1 2.1 - 4.7 mg/dL 10/31/2024 8:09 AM EDT [facility] Albumin 3.2(L) 3.5 - 5.7 g/dL 10/31/2024 8:09 AM EDT [facility] Osmolality, Calculated 309(H) 278 - 305 mOsm/kg 10/31/2024 8:09 AM EDT [facility] EGFR 50 10/31/2024 8:09 AM EDT [facility] Comment:As of 2021, the estimated [...] Disease. Am J Kidney Dis. 2020. Plasma 10/31/2024 6:40 AM EDT 10/31/2024 7:35 AM EDT Beata Horner [facility] BLOOD ORDERABLES Denisse l Result [facility] [address] [place] [address], [facility] * Magnesium (10/31/2024 6:40 AM EDT) Magnesium 1.8 1.5 - 2.5 mg/dL 10/31/2024 8:09 AM EDT [facility] Plasma 10/31/2024 6:40 AM EDT 10/31/2024 7:35 AM EDT Beata Horner [employer] LAB BLOOD ORDERABLES Denisse l Result Performing Organization Address City/[facility]/ZIP Co de Phone Number [facility] [address] * (ABNORMAL) Hepatic Function Panel (10/31/2024 6:40 AM EDT) Total Bilirubin 2.7(H) 0.0 - 1.5 mg/dL 10/31/2024 8:09 AM EDT [facility] Bilirubin, Direct 1.57(H) 0.00 - 0.40 mg/dL 10/31/2024 8:09 AM EDT [facility] AST 26 13 - 39 U/L 10/31/2024 8:09 AM EDT [facility] ALT 68(H) 7 - 52 U/L 10/31/2024 8:09 AM EDT [facility] Alkaline Phosphatase 112 36 - 125 U/L 10/31/2024 8:09 AM EDT [facility] Total Protein 4.7(L) 6.4 - 8.9 g/dL 10/31/2024 8:09 AM EDT [facility] Albumin 3.2(L) 3.5 - 5.7 g/dL 10/31/2024 8:09 AM EDT [facility] Bilirubin, Indirect 1.13(H) 0.00 - 1.10 mg/dL 10/31/2024 8:09 AM EDT [facility] Plasma 10/31/2024 6:40 AM EDT 10/31/2024 7:35 AM EDT Beata Horner [employer] LAB BLOOD ORDERABLES Denisse l Result [facility] [address] [facility]. [address] * (ABNORMAL) CBC (10/31/2024 6:40 AM EDT) WBC 6.0 3.8 - 10.8 10E3/uL 10/31/2024 8:05 AM EDT [facility] RBC 3.14(L) 4.20 - 5.80 10E6/uL 10/31/2024 8:05 AM EDT [facility] Hemoglobin 9.6(L) 13.2 - 17.1 g/dL 10/31/2024 8:05 AM EDT [facility] Hematocrit 27.5(L) 38.5 - 50.0 % 10/31/2024 8:05 AM EDT [facility] MCV 87.6 80.0 - 100.0 fL 10/31/2024 8:05 AM EDT [facility] MCH 30.7 27.0 - 33.0 pg 10/31/2024 8:05 AM EDT [facility] MCHC 35.0 32.0 - 36.0 g/dL 10/31/2024 8:05 AM EDT [facility] RDW 17.9(H) 11.0 - 15.0 % 10/31/2024 8:05 AM EDT [facility] Platelets 44(L) 140 - 400 10E3/uL 10/31/2024 8:05 AM EDT [facility] Comment: CNV Specimen checked for clots. None detected. MPV 8.9 7.5 - 11.5 fL 10/31/2024 8:05 AM EDT [facility] Whole Blood 10/31/2024 6:40 AM EDT 10/31/2024 7:34 AM EDT us Beata Horner [facility] BLOOD ORDERABLES Denisse l Result Performing Organization Address City/State/[facility] Co de Phone Number [facility] [address] * (ABNORMAL) POC Glucose Monitoring Device (10/30/2024 9:01 PM EDT) POC Glucose Monitoring Device 144(H) 70 - 100 mg/dL 10/30/2024 9:02 PM EDT [facility] Blood 10/30/2024 9:01 PM EDT 10/30/2024 9:01 PM EDT us Harvey Domínguez III, MD POINT OF CARE TEST ORDERABLES Final Result [facility] [address] * (ABNORMAL) POC Glucose Monitoring Device (10/30/2024 5:37 PM EDT) POC Glucose Monitoring Device 124(H) 70 - 100 mg/dL 10/30/2024 5:47 PM EDT [facility] Blood 10/30/2024 5:37 PM EDT 10/30/2024 5:47 PM EDT us Harvey Domínguez III, MD POINT OF CARE TEST ORDERABLES Final Result Performing Organization Address City/[facility] Co de Phone Number [facility] [address] [facility]. [address] * (ABNORMAL) POC Glucose Monitoring Device (10/30/2024 7:26 AM EDT) POC Glucose Monitoring Device 150(H) 70 - 100 mg/dL 10/30/2024 7:27 AM EDT [facility] Blood 10/30/2024 7:26 AM EDT 10/30/2024 7:27 AM EDT us Harvey Domínguez III, MD POINT OF CARE TEST ORDERABLES Final Result Performing Organization Address City/[facility]/ZIP Co de Phone Number [facility] [address] [place] [facility]. [address] * Tacrolimus level (10/30/2024 7:13 AM EDT) Tacrolimus (LC-MS) 9.5 3.0 - 15.0 ng/mL 10/30/2024 2:53 PM EDT [facility] Comment:Performed via liquid chromatography tandem mass spectrometry. Detection limit: 1 ng/mL. Individual target concentrations may vary due to target organ and time after transplant. This test has been developed and its performance characteristics determined by [facility] which is certified under the Clinical Laboratory Improvement Amendment of 1988 (CLIA-88) to perform high complexity testing. The test has not been cleared or approved by the US Food and Drug Administration (FDA). The FDA has determined that such clearance is not necessary. The test should be used for clinical purposes and is not regarded as investigational. Whole Blood 10/30/2024 7:13 AM EDT 10/30/2024 7:26 AM EDT [employer] [facility] BLOOD ORDERABLES Final Re sult Performing Organization Address City/[facility] Co de Phone Number [facility] [address] * ECG 12-lead (MUSE) (10/30/2024 6:51 AM EDT) 10/30/2024 6:51 AM EDT Narrative MUSE - 11/01/2024 9:21 AM EDT Ventricular Rate: 92 BPM Atrial Rate: 92 BPM P-R Interval: 174 ms QRS Duration: 96 ms QT: 376 ms QTc: 464 ms P [place]: 54 degrees R [place]: -24 degrees T [place]: 11 degrees Diagnosis Line: NORMAL SINUS RHYTHM ^ NORMAL ECG ^ ^ Confirmed by MD JOE, OTIS ([id number]) on 11/01/2024 9:21:09 AM [employer] [facility] ECG ORDERABLES Final Result Performing Organization Address City/[facility] Co de Phone Number MUSE * (ABNORMAL) Renal Function Panel w/EGFR (10/30/2024 5:41 AM EDT) Sodium 140 133 - 146 mmol/L 10/30/2024 6:18 AM EDT [facility] Potassium 3.8 3.5 - 5.3 mmol/L 10/30/2024 6:18 AM EDT [facility] Chloride 111(H) 98 - 110 mmol/L 10/30/2024 6:18 AM EDT [facility] CO2 17(L) 21 - 33 mmol/L 10/30/2024 6:18 AM EDT [facility] Anion Gap 12 3 - 16 mmol/L 10/30/2024 6:18 AM EDT [facility] BUN 62(H) 7 - 25 mg/dL 10/30/2024 6:18 AM EDT [facility] Creatinine 1.96(H) 0.60 - 1.30 mg/dL 10/30/2024 6:18 AM EDT [facility] Glucose 116(H) 70 - 100 mg/dL 10/30/2024 6:18 AM EDT [facility] Calcium 9.0 8.6 - 10.3 mg/dL 10/30/2024 6:18 AM EDT [facility] Phosphorus 4.6 2.1 - 4.7 mg/dL 10/30/2024 6:18 AM EDT [facility] Albumin 3.2(L) 3.5 - 5.7 g/dL 10/30/2024 6:18 AM EDT [facility] Osmolality, Calculated 309(H) 278 - 305 mOsm/kg 10/30/2024 6:18 AM EDT [facility] EGFR 43 10/30/2024 6:18 AM EDT [facility] Comment:As of 2021, the estimated [...] Disease. Am J Kidney Dis. 2020. Plasma 10/30/2024 5:41 AM EDT 10/30/2024 5:47 AM EDT Beata Horner [facility] BLOOD ORDERABLES Denisse valle Result [facility] [address] * Magnesium (10/30/2024 5:41 AM EDT) Magnesium 2.2 1.5 - 2.5 mg/dL 10/30/2024 6:18 AM EDT [facility] Plasma 10/30/2024 5:41 AM EDT 10/30/2024 5:47 AM EDT Beata Horner [facility] BLOOD ORDERABLES Denisse l Result Performing Organization Address City/[facility]/ZIP Co de Phone Number [facility] [address] [facility]. [address] * (ABNORMAL) Hepatic Function Panel (10/30/2024 5:41 AM EDT) Total Bilirubin 3.6(H) 0.0 - 1.5 mg/dL 10/30/2024 6:18 AM EDT [facility] Bilirubin, Direct 1.95(H) 0.00 - 0.40 mg/dL 10/30/2024 6:18 AM EDT [facility] AST 33 13 - 39 U/L 10/30/2024 6:18 AM EDT [facility] ALT 71(H) 7 - 52 U/L 10/30/2024 6:18 AM EDT [facility] Alkaline Phosphatase 80 36 - 125 U/L 10/30/2024 6:18 AM EDT [facility] Total Protein 4.8(L) 6.4 - 8.9 g/dL 10/30/2024 6:18 AM EDT [facility] Albumin 3.2(L) 3.5 - 5.7 g/dL 10/30/2024 6:18 AM EDT [facility] Bilirubin, Indirect 1.65(H) 0.00 - 1.10 mg/dL 10/30/2024 6:18 AM EDT [facility] Plasma 10/30/2024 5:41 AM EDT 10/30/2024 5:47 AM EDT Beata Horner [facility] BLOOD ORDERABLES Denisse l Result [facility] [address] [facility]. [address] * (ABNORMAL) CBC (10/30/2024 5:41 AM EDT) Pathologist [facility] WBC 8.1 3.8 - 10.8 10E3/uL 10/30/2024 8:06 AM EDT [facility] RBC 3.29(L) 4.20 - 5.80 10E6/uL 10/30/2024 8:06 AM EDT [facility] Hemoglobin 10.1(L) 13.2 - 17.1 g/dL 10/30/2024 8:06 AM EDT [facility] Hematocrit 28.8(L) 38.5 - 50.0 % 10/30/2024 8:06 AM EDT [facility] MCV 87.6 80.0 - 100.0 fL 10/30/2024 8:06 AM EDT [facility] MCH 30.6 27.0 - 33.0 pg 10/30/2024 8:06 AM EDT [facility] MCHC 34.9 32.0 - 36.0 g/dL 10/30/2024 8:06 AM EDT [facility] RDW 18.1(H) 11.0 - 15.0 % 10/30/2024 8:06 AM EDT [facility] Platelets 44(L) 140 - 400 10E3/uL 10/30/2024 8:06 AM EDT [facility] Comment: CNV Specimen checked for clots. None detected. MPV 8.3 7.5 - 11.5 fL 10/30/2024 8:06 AM EDT [facility] Whole Blood 10/30/2024 5:41 AM EDT 10/30/2024 5:50 AM EDT us Beata Horner [employer] LAB BLOOD ORDERABLES Denisse valle Result [facility] [address] [facility]. [address] * (ABNORMAL) POC Glucose Monitoring Device (10/29/2024 10:18 PM EDT) [facility] POC Glucose Monitoring Device 140(H) 70 - 100 mg/dL 10/29/2024 10:18 PM EDT [facility] Blood 10/29/2024 10:1 8 PM EDT 10/29/2024 10:18 PM EDT us Harvey Domínguez III, MD POINT OF CARE TEST ORDERABLES Final Result [facility] [address] [address] * (ABNORMAL) POC Glucose Monitoring Device (10/29/2024 6:42 PM EDT) POC Glucose Monitoring Device 152(H) 70 - 100 mg/dL 10/29/2024 6:43 PM EDT [facility] Blood 10/29/2024 6:42 PM EDT 10/29/2024 6:43 PM EDT us Harvey Domínguez III, MD POINT OF CARE TEST ORDERABLES Final Result Performing Organization Address [facility] Co de Phone Number [facility] [address] [place], [place] [address]ue [facility]. [address] * (ABNORMAL) POC Glucose Monitoring Device (10/29/2024 11:35 AM EDT) POC Glucose Monitoring Device 130(H) 70 - 100 mg/dL 10/29/2024 11:36 AM EDT [facility] Blood 10/29/2024 11:3 5 AM EDT 10/29/2024 11:36 AM EDT us Harvey Domínguez III, MD POINT OF CARE TEST ORDERABLES Final Result Performing Organization Address City/[facility] Co de Phone Number [facility] [address] [facility]. [address] * ECG 12 lead (MUSE) (10/29/2024 9:34 AM EDT) 10/29/2024 9:34 AM EDT Narrative MUSE - 10/29/2024 10:34 PM EDT Ventricular Rate: 97 BPM Atrial Rate: 97 BPM P-R Interval: 186 ms QRS Duration: 104 ms QT: 382 ms QTc: 485 ms P [place]: 54 degrees R [place]: -21 degrees T [place]: 1 degrees Diagnosis Line: NORMAL SINUS RHYTHM ^ NORMAL ECG ^ Confirmed by JORGE MACIAS ([id number]) on 10/29/2024 10:34:50 PM Afshan Bear MD ECG ORDERABLES Final Result Performing Organization Address [facility] de Phone Number MUSE * Tacrolimus level (10/29/2024 8:08 AM EDT) Pathologist [facility] Tacrolimus (LC-MS) 10.4 3.0 - 15.0 ng/mL 10/29/2024 2:07 PM EDT [facility] Comment:Performed via liquid chromatography tandem mass spectrometry. Detection limit: 1 ng/mL. Individual target concentrations may vary due to target organ and time after transplant. This test has been developed and its performance characteristics determined by [facility] which is certified under the Clinical Laboratory Improvement Amendment of 1988 (CLIA-88) to perform high complexity testing. The test has not been cleared or approved by the US Food and Drug Administration (FDA). The FDA has determined that such clearance is not necessary. The test should be used for clinical purposes and is not regarded as investigational. Whole Blood 10/29/2024 8:08 AM EDT 10/29/2024 8:21 AM EDT Priti Geiger [employer] BLOOD ORDERABLES Final Re sult Performing Organization Address [facility] Co de Phone Number [facility] [address] [place] [address], [facility] * Prepare RBC, leukoreduced, 1 Units (10/29/2024 6:16 AM EDT) Product Code W1125C13 HCLL Unit Number [id number] HCLL Dispense Status Presumed Transfused_PT HCLL Blood Expiration Date [id number] HCLL Coding System [id number] HCLL Blood Bank Product Shay Plata MD BLOOD BANK PRODUCT O RDERABLES Final Result HCLL * Prepare RBC, leukoreduced, 1 Units (10/29/2024 6:15 AM EDT) Product Code Z8170F26 HCLL Unit Number [id number] HCLL Dispense Status Presumed Transfused_PT HCLL Blood Expiration Date [id number] HCLL Coding System [id number] HCLL Blood Bank Product Carlos Marks MD BLOOD BANK PRODUCT ORDERABL ES Final Result Performing Organization Address [facility] de Phone Number HCLL * Prepare RBC, leukoreduced, 1 Units (10/29/2024 6:15 AM EDT) Product Code S5994Z65 HCLL Unit Number [id number] HCLL Dispense Status Presumed Transfused_PT HCLL Blood Expiration Date [id number] HCLL Coding System [id number] HCLL Blood Bank Product John Moreno MD BLOOD BANK PRODUCT ORDERABLE S Final Result Performing Organization Address [facility] de Phone Number HCLL * (ABNORMAL) Renal Function Panel w/EGFR (10/29/2024 5:07 AM EDT) Sodium 144 133 - 146 mmol/L 10/29/2024 5:49 AM EDT [facility] Potassium 3.8 3.5 - 5.3 mmol/L 10/29/2024 5:49 AM EDT [facility] Chloride 113(H) 98 - 110 mmol/L 10/29/2024 5:49 AM EDT [facility] CO2 17(L) 21 - 33 mmol/L 10/29/2024 5:49 AM EDT [facility] Anion Gap 14 3 - 16 mmol/L 10/29/2024 5:49 AM EDT [facility] BUN 57(H) 7 - 25 mg/dL 10/29/2024 5:49 AM EDT [facility] Creatinine 1.93(H) 0.60 - 1.30 mg/dL 10/29/2024 5:49 AM EDT [facility] Glucose 110(H) 70 - 100 mg/dL 10/29/2024 5:49 AM EDT [facility] Calcium 9.3 8.6 - 10.3 mg/dL 10/29/2024 5:49 AM EDT [facility] Phosphorus 4.8(H) 2.1 - 4.7 mg/dL 10/29/2024 5:49 AM EDT [facility] Albumin 3.5 3.5 - 5.7 g/dL 10/29/2024 5:49 AM EDT [facility] Osmolality, Calculated 314(H) 278 - 305 mOsm/kg 10/29/2024 5:49 AM EDT [facility] EGFR 44 10/29/2024 5:49 AM EDT [facility] Comment:As of 2021, the estimated [...] Disease. Am J Kidney Dis. 2020. Plasma 10/29/2024 5:07 AM EDT 10/29/2024 5:13 AM EDT Beata Horner [employer] BLOOD ORDERABLES Denisse valle Result [facility] [address] [place] * Magnesium (10/29/2024 5:07 AM EDT) Magnesium 2.1 1.5 - 2.5 mg/dL 10/29/2024 5:49 AM EDT [facility] Plasma 10/29/2024 5:07 AM EDT 10/29/2024 5:13 AM EDT Beata Horner [facility] BLOOD ORDERABLES Denisse l Result Performing Organization Address City/[facility]/ZIP Co de Phone Number [facility] [address] [facility]. [address] * (ABNORMAL) Hepatic Function Panel (10/29/2024 5:07 AM EDT) Total Bilirubin 4.2(H) 0.0 - 1.5 mg/dL 10/29/2024 5:49 AM EDT [facility] Bilirubin, Direct 2.85(H) 0.00 - 0.40 mg/dL 10/29/2024 5:49 AM EDT [facility] AST 31 13 - 39 U/L 10/29/2024 5:49 AM EDT [facility] ALT 88(H) 7 - 52 U/L 10/29/2024 5:49 AM EDT [facility] Alkaline Phosphatase 51 36 - 125 U/L 10/29/2024 5:49 AM EDT [facility] Total Protein 5.2(L) 6.4 - 8.9 g/dL 10/29/2024 5:49 AM EDT [facility] Albumin 3.5 3.5 - 5.7 g/dL 10/29/2024 5:49 AM EDT [facility] Bilirubin, Indirect 1.35(H) 0.00 - 1.10 mg/dL 10/29/2024 5:49 AM EDT [facility] Plasma 10/29/2024 5:07 AM EDT 10/29/2024 5:13 AM EDT Beata Horner [employer] BLOOD ORDERABLES Denisse l Result [facility] [address] [place] [address] * (ABNORMAL) CBC (10/29/2024 5:07 AM EDT) WBC 7.8 3.8 - 10.8 10E3/uL 10/29/2024 5:38 AM EDT [facility] RBC 3.05(L) 4.20 - 5.80 10E6/uL 10/29/2024 5:38 AM EDT [facility] Hemoglobin 9.0(L) 13.2 - 17.1 g/dL 10/29/2024 5:38 AM EDT [facility] Hematocrit 26.7(L) 38.5 - 50.0 % 10/29/2024 5:38 AM EDT [facility] MCV 87.4 80.0 - 100.0 fL 10/29/2024 5:38 AM EDT [facility] MCH 29.7 27.0 - 33.0 pg 10/29/2024 5:38 AM EDT [facility] MCHC 33.9 32.0 - 36.0 g/dL 10/29/2024 5:38 AM EDT [facility] RDW 18.3(H) 11.0 - 15.0 % 10/29/2024 5:38 AM EDT [facility] Platelets 41(L) 140 - 400 10E3/uL 10/29/2024 5:38 AM EDT [facility] Comment: CNV Specimen checked for clots. None detected. MPV 7.5 7.5 - 11.5 fL 10/29/2024 5:38 AM EDT [facility] Whole Blood 10/29/2024 5:07 AM EDT 10/29/2024 5:13 AM EDT us Beata Horner [employer] BLOOD ORDERABLES Denisse tori Result [facility] [address] * (ABNORMAL) TEG-Bypass/ECMO/Liver HN (Factor function, Platelet/Fibrin Clot Strength w/Clot Breakdown, Heparinase In All Channels) (10/29/2024 5:07 AM EDT) Citrated Kaolin Reaction Time (TEGECMOLIVER) 8.9 4.6 - 9.1 minutes 10/29/2024 7:04 AM EDT [facility] Citrated Kaolin W/Heparinase Reaction Time (TEGECMOLIVER) 7.4 4.3 - 8.3 minutes 10/29/2024 7:04 AM EDT [facility] Citrated Kaolin Maximum Amplitude (TEGECMOLIVER) 52.9 52.0 - 69.0 mm 10/29/2024 7:04 AM EDT [facility] Citrated Functional Fibrinogen W/Heparinase Maximum Amplitude(TEGEC MOLIVER) 20.7 15.0 - 34.0 mm 10/29/2024 7:04 AM EDT [facility] Citrated Rapid Teg W/Heparinase Maximum Amplitude (TEGECMOLIVER) 49.7(L) 53.0 - 69.0 mm 10/29/2024 7:04 AM EDT [facility] Citrated Kaolin w/Heparinase Percent Lysis (TEGECMOLIVER) 0.0 0.0 - 3.2 % 10/29/2024 7:04 AM EDT [facility] Whole Blood (Citrate) 10/29/2024 5:07 AM EDT 10/29/2024 5:10 AM EDT us Kemar Sahni MD LAB BLOOD ORDERABLES Final Result [facility] [address] [place] [id number] * (ABNORMAL) TEG-Bypass/ECMO/Liver HN (Factor function, Platelet/Fibrin Clot Strength w/Clot Breakdown, Heparinase In All Channels) (10/28/2024 11:55 PM EDT) Citrated Kaolin Reaction Time (TEGECMOLIVER) 8.6 4.6 - 9.1 minutes 10/29/2024 2:01 AM EDT [facility] Citrated Kaolin W/Heparinase Reaction Time (TEGECMOLIVER) 8.7(H) 4.3 - 8.3 minutes 10/29/2024 2:01 AM EDT [facility] Citrated Kaolin Maximum Amplitude (TEGECMOLIVER) 47.9(L) 52.0 - 69.0 mm 10/29/2024 2:01 AM EDT [facility] Citrated Functional Fibrinogen W/Heparinase Maximum Amplitude(TEGEC MOLIVER) 22.0 15.0 - 34.0 mm 10/29/2024 2:01 AM EDT [facility] Citrated Rapid Teg W/Heparinase Maximum Amplitude (TEGECMOLIVER) 45.9(L) 53.0 - 69.0 mm 10/29/2024 2:01 AM EDT [facility] Citrated Kaolin w/Heparinase Percent Lysis (TEGECMOLIVER) 0.0 0.0 - 3.2 % 10/29/2024 2:01 AM EDT [facility] Whole Blood (Citrate) 10/28/2024 11:55 PM EDT 10/28/2024 11:58 PM EDT Kemar Sahni MD LAB BLOOD ORDERABLES Final Result [facility] [address] * (ABNORMAL) CBC, STAT (10/28/2024 8:04 PM EDT) WBC 3.9 3.8 - 10.8 10E3/uL 10/28/2024 8:36 PM EDT [facility] RBC 2.66(L) 4.20 - 5.80 10E6/uL 10/28/2024 8:36 PM EDT [facility] Hemoglobin 8.0(L) 13.2 - 17.1 g/dL 10/28/2024 8:36 PM EDT [facility] Hematocrit 23.0(L) 38.5 - 50.0 % 10/28/2024 8:36 PM EDT [facility] MCV 86.4 80.0 - 100.0 fL 10/28/2024 8:36 PM EDT [facility] MCH 29.9 27.0 - 33.0 pg 10/28/2024 8:36 PM EDT [facility] MCHC 34.6 32.0 - 36.0 g/dL 10/28/2024 8:36 PM EDT [facility] RDW 18.6(H) 11.0 - 15.0 % 10/28/2024 8:36 PM EDT [facility] Platelets 29(L) 140 - 400 10E3/uL 10/28/2024 8:36 PM EDT [facility] Comment: CNV Specimen checked for clots. None detected. MPV 7.8 7.5 - 11.5 fL 10/28/2024 8:36 PM EDT [facility] Whole Blood 10/28/2024 8:04 PM EDT 10/28/2024 8:14 PM EDT Carlos Marks MD LAB BLOOD ORDERABLES Final Result Performing Organization Address City/[facility]/ZIP Co de Phone Number [facility] [address] * (ABNORMAL) POC Glucose Monitoring Device (10/28/2024 8:03 PM EDT) POC Glucose Monitoring Device 122(H) 70 - 100 mg/dL 10/28/2024 8:04 PM EDT [facility] Blood 10/28/2024 8:03 PM EDT 10/28/2024 8:04 PM EDT Harvey Domínguez III, MD POINT OF CARE TEST ORDERABLES Final Result [facility] [address] * (ABNORMAL) TEG-Bypass/ECMO/Liver HN (Factor function, Platelet/Fibrin Clot Strength w/Clot Breakdown, Heparinase In All Channels) (10/28/2024 6:39 PM EDT) Citrated Kaolin Reaction Time (TEGECMOLIVER) 9.0 4.6 - 9.1 minutes 10/28/2024 7:50 PM EDT [facility] Citrated Kaolin W/Heparinase Reaction Time (TEGECMOLIVER) 8.3 4.3 - 8.3 minutes 10/28/2024 7:50 PM EDT [facility] Citrated Kaolin Maximum Amplitude (TEGECMOLIVER) 47.6(L) 52.0 - 69.0 mm 10/28/2024 7:50 PM EDT [facility] Citrated Functional Fibrinogen W/Heparinase Maximum Amplitude(TEGEC MOLIVER) 20.4 15.0 - 34.0 mm 10/28/2024 7:50 PM EDT [facility] Citrated Rapid Teg W/Heparinase Maximum Amplitude (TEGECMOLIVER) 44.0(L) 53.0 - 69.0 mm 10/28/2024 7:50 PM EDT [facility] Citrated Kaolin w/Heparinase Percent Lysis (TEGECMOLIVER) 0.0 0.0 - 3.2 % 10/28/2024 7:50 PM EDT [facility] Whole Blood (Citrate) 10/28/2024 6:39 PM EDT 10/28/2024 6:42 PM EDT us Kemar Sahni MD LAB BLOOD ORDERABLES Final Result [facility] [address] * (ABNORMAL) POC Glucose Monitoring Device (10/28/2024 5:31 PM EDT) [facility] POC Glucose Monitoring Device 130(H) 70 - 100 mg/dL 10/28/2024 5:31 PM EDT [facility] Blood 10/28/2024 5:31 PM EDT 10/28/2024 5:31 PM EDT us Harvey Domínguez III, MD POINT OF CARE TEST ORDERABLES Final Result [facility] [address] * Transfuse RBC Transfusion Rate: Per dept routine (10/28/2024 5:23 PM EDT) us Shay Plata MD NURSING TREATMENT OR DERABLES - BLOOD ADMIN Final Result EXTERNAL * Transfuse RBC Transfusion Rate: Per dept routine, 1 Units (10/28/2024 5:23 PM EDT) Shay Plata MD NURSING TREATMENT OR DERABLES - BLOOD ADMIN Final Result Performing Organization Address City/[facility]/ZIP Co de Phone Number EXTERNAL * US Abdomen Limited (10/28/2024 4:23 PM EDT) Anatomical Region Laterality Modality Abdomen, Pelvis Ultrasound 10/28/2024 3:30 PM EDT Impressions 10/28/2024 4:42 PM EDT IMPRESSION: ABDOMINAL ULTRASOUND Heterogeneous echogenicity in the region of the gallbladder fossa suspicious for a hematoma. Perihepatic fluid. ABDOMINAL DOPPLER Patent hepatic vasculature with antegrade flow. Report Verified by: Scotty Wasserman MD at 10/28/2024 4:42 PM EDT Narrative 10/28/2024 4:42 PM EDT EXAM: US ABDOMEN LIMITED EXAM: US DUPLEX [id number] COMPLETE INDICATION: Post-op liver transplant DATE: 10/28/2024 3:30 PM EDT COMPARISON: 10/27/2024 Technique: Grayscale imaging was performed for evaluation of the liver, gallbladder, common bile duct, pancreas, and right kidney; with limited grayscale and color Doppler evaluation of the upper abdominal aorta and inferior vena cava. Color and spectral (duplex) Doppler analysis of the hepatic vasculature was also performed. FINDINGS: As noted on the prior study, there is heterogeneous echogenicity in the region of the gallbladder fossa measuring approximately 3.4 x 5.3 x 5.4 cm. There is prominent fat at the falciform ligament. These findings are best appreciated on the initial transverse cine loop images. The remainder of the liver is normal in echogenicity and homogeneous in echotexture. There is no evidence of intrahepatic or extrahepatic biliary ductal dilation. The common duct measures 5 mm as measured on the cine loop images. The gallbladder surgically absent. There is subphrenic perihepatic fluid, not well visualized. The pancreas is obscured. The visualized abdominal aorta is normal in caliber. The retrohepatic inferior vena cava is patent. The [place] right kidney is partially visualized. A prominent renal pelvis is again noted similar to the pretransplant MR dated 10/13/2024. Duplex Doppler interrogation of the hepatic vasculature was performed. Antegrade flow is seen within the main, right and left portal veins. Antegrade flow is seen within the main, right and left hepatic arteries. The resistive index of the main hepatic artery is 0.74-0.75, in the right hepatic artery is 0.68-0.74. The left hepatic arterial waveform is superimposed on the left portal venous waveform and an accurate resistive index could not be acquired. The right, middle and left hepatic veins are patent with flow towards inferior vena cava. Procedure Note Scotty Wasserman MD - 10/28/2024 EXAM: US ABDOMEN LIMITED EXAM: US DUPLEX [id number] COMPLETE INDICATION: Post-op liver transplant DATE: 10/28/2024 3:30 PM EDT COMPARISON: 10/27/2024 Technique: Grayscale imaging was performed for evaluation of the liver,gallbladder, common bile duct, pancreas, and right kidney; with limitedgrayscale and color Doppler evaluation of the upper abdominal aorta andinferior vena cava. Color and spectral (duplex) Doppler analysis of thehepatic vasculature was also performed. FINDINGS: As noted on the prior study, there is heterogeneous echogenicity in theregion of the gallbladder fossa measuring approximately 3.4 x 5.3 x 5.4cm. There is prominent fat at the falciform ligament. These findings arebest appreciated on the initial transverse cine loop images. The remainderof the liver is normal in echogenicity and homogeneous in echotexture.There is no evidence of intrahepatic or extrahepatic biliary ductaldilation. The common duct measures 5 mm as measured on the cine loopimages. The gallbladder surgically absent. There is subphrenic perihepatic fluid, not well visualized. The pancreas is obscured. The visualized abdominal aorta is normal incaliber. The retrohepatic inferior vena cava is patent. The [place] right kidney is partially visualized. A prominent renal pelvisis again noted similar to the pretransplant MR dated 10/13/2024. Duplex Doppler interrogation of the hepatic vasculature was performed.Antegrade flow is seen within the main, right and left portal veins.Antegrade flow is seen within the main, right and left hepatic arteries.The resistive index of the main hepatic artery is 0.74-0.75, in the righthepatic artery is 0.68-0.74. The left hepatic arterial waveform issuperimposed on the left portal venous waveform and an accurate resistiveindex could not be acquired. The right, middle and left hepatic veins arepatent with flow towards inferior vena cava. IMPRESSION: ABDOMINAL ULTRASOUND Heterogeneous echogenicity in the region of the gallbladder fossasuspicious for a hematoma. Perihepatic fluid. ABDOMINAL DOPPLER Patent hepatic vasculature with antegrade flow. Report Verified by: Scotty Wasserman MD at 10/28/2024 4:42 PM EDT us Shay Plata MD IMG US ORDERABLES Fi nal Result * US Duplex [id number] Comp (10/28/2024 4:23 PM EDT) Anatomical Region Laterality Modality Abdomen, Pelvis, Testes, Vascular Ultrasound 10/28/2024 3:30 PM EDT Impressions 10/28/2024 4:42 PM EDT IMPRESSION: ABDOMINAL ULTRASOUND Heterogeneous echogenicity in the region of the gallbladder fossa suspicious for a hematoma. Perihepatic fluid. ABDOMINAL DOPPLER Patent hepatic vasculature with antegrade flow. Report Verified by: Scotty Wasserman MD at 10/28/2024 4:42 PM EDT Narrative 10/28/2024 4:42 PM EDT EXAM: US ABDOMEN LIMITED EXAM: US DUPLEX [id number] COMPLETE INDICATION: Post-op liver transplant DATE: 10/28/2024 3:30 PM EDT COMPARISON: 10/27/2024 Technique: Grayscale imaging was performed for evaluation of the liver, gallbladder, common bile duct, pancreas, and right kidney; with limited grayscale and color Doppler evaluation of the upper abdominal aorta and inferior vena cava. Color and spectral (duplex) Doppler analysis of the hepatic vasculature was also performed. FINDINGS: As noted on the prior study, there is heterogeneous echogenicity in the region of the gallbladder fossa measuring approximately 3.4 x 5.3 x 5.4 cm. There is prominent fat at the falciform ligament. These findings are best appreciated on the initial transverse cine loop images. The remainder of the liver is normal in echogenicity and homogeneous in echotexture. There is no evidence of intrahepatic or extrahepatic biliary ductal dilation. The common duct measures 5 mm as measured on the cine loop images. The gallbladder surgically absent. There is subphrenic perihepatic fluid, not well visualized. The pancreas is obscured. The visualized abdominal aorta is normal in caliber. The retrohepatic inferior vena cava is patent. The [place] right kidney is partially visualized. A prominent renal pelvis is again noted similar to the pretransplant MR dated 10/13/2024. Duplex Doppler interrogation of the hepatic vasculature was performed. Antegrade flow is seen within the main, right and left portal veins. Antegrade flow is seen within the main, right and left hepatic arteries. The resistive index of the main hepatic artery is 0.74-0.75, in the right hepatic artery is 0.68-0.74. The left hepatic arterial waveform is superimposed on the left portal venous waveform and an accurate resistive index could not be acquired. The right, middle and left hepatic veins are patent with flow towards inferior vena cava. Procedure Note Scotty Wasserman MD - 10/28/2024 EXAM: US ABDOMEN LIMITED EXAM: US DUPLEX [id number] COMPLETE INDICATION: Post-op liver transplant DATE: 10/28/2024 3:30 PM EDT COMPARISON: 10/27/2024 Technique: Grayscale imaging was performed for evaluation of the liver,gallbladder, common bile duct, pancreas, and right kidney; with limitedgrayscale and color Doppler evaluation of the upper abdominal aorta andinferior vena cava. Color and spectral (duplex) Doppler analysis of thehepatic vasculature was also performed. FINDINGS: As noted on the prior study, there is heterogeneous echogenicity in theregion of the gallbladder fossa measuring approximately 3.4 x 5.3 x 5.4cm. There is prominent fat at the falciform ligament. These findings arebest appreciated on the initial transverse cine loop images. The remainderof the liver is normal in echogenicity and homogeneous in echotexture.There is no evidence of intrahepatic or extrahepatic biliary ductaldilation. The common duct measures 5 mm as measured on the cine loopimages. The gallbladder surgically absent. There is subphrenic perihepatic fluid, not well visualized. The pancreas is obscured. The visualized abdominal aorta is normal incaliber. The retrohepatic inferior vena cava is patent. The [place] right kidney is partially visualized. A prominent renal pelvisis again noted similar to the pretransplant MR dated 10/13/2024. Duplex Doppler interrogation of the hepatic vasculature was performed.Antegrade flow is seen within the main, right and left portal veins.Antegrade flow is seen within the main, right and left hepatic arteries.The resistive index of the main hepatic artery is 0.74-0.75, in the righthepatic artery is 0.68-0.74. The left hepatic arterial waveform issuperimposed on the left portal venous waveform and an accurate resistiveindex could not be acquired. The right, middle and left hepatic veins arepatent with flow towards inferior vena cava. IMPRESSION: ABDOMINAL ULTRASOUND Heterogeneous echogenicity in the region of the gallbladder fossasuspicious for a hematoma. Perihepatic fluid. ABDOMINAL DOPPLER Patent hepatic vasculature with antegrade flow. Report Verified by: Scotty Wasserman MD at 10/28/2024 4:[address] [facility] Vi Plata MD [facility] [place] ORDERABLES Fi nal Result * (ABNORMAL) CBC, STAT (10/28/2024 2:49 PM EDT) WBC 4.0 3.8 - 10.8 10E3/uL 10/28/2024 3:07 PM EDT [facility] RBC 2.44(L) 4.20 - 5.80 10E6/uL 10/28/2024 3:07 PM EDT [facility] Hemoglobin 7.5(L) 13.2 - 17.1 g/dL 10/28/2024 3:07 PM EDT [facility] Hematocrit 21.4(L) 38.5 - 50.0 % 10/28/2024 3:07 PM EDT [facility] MCV 87.6 80.0 - 100.0 fL 10/28/2024 3:07 PM EDT [facility] MCH 30.6 27.0 - 33.0 pg 10/28/2024 3:07 PM EDT [facility] MCHC 34.9 32.0 - 36.0 g/dL 10/28/2024 3:07 PM EDT [facility] RDW 18.4(H) 11.0 - 15.0 % 10/28/2024 3:07 PM EDT [facility] Platelets 30(L) 140 - 400 10E3/uL 10/28/2024 3:07 PM EDT [facility] Comment: CNV Specimen checked for clots. None detected. MPV 7.7 7.5 - 11.5 fL 10/28/2024 3:07 PM EDT [facility] Whole Blood 10/28/2024 2:49 PM EDT 10/28/2024 2:53 PM EDT us Carlos Marks MD LAB BLOOD ORDERABLES Final Result [facility] [address] * ECG 12 lead (MUSE) (10/28/2024 1:22 PM EDT) 10/28/2024 1:22 PM EDT Narrative MUSE - 10/29/2024 10:34 PM EDT Ventricular Rate: 104 BPM Atrial Rate: 104 BPM P-R Interval: 172 ms QRS Duration: 90 ms QT: 354 ms QTc: 465 ms P [place]: 58 degrees R [place]: -19 degrees T [place]: 38 degrees Diagnosis Line: SINUS TACHYCARDIA ^ OTHERWISE NORMAL ECG ^ ^ Confirmed by JORGE MACIAS ([id number]) on 10/29/2024 10:34:22 PM Hillary Fernandes PharmD ECG ORDERABLES Final Res ult Performing Organization Address City/[facility]/ZIP Co de Phone Number MUSE * (ABNORMAL) POC Glucose Monitoring Device (10/28/2024 12:54 PM EDT) POC Glucose Monitoring Device 119(H) 70 - 100 mg/dL 10/28/2024 12:55 PM EDT [facility] Blood 10/28/2024 12:5 4 PM EDT 10/28/2024 12:55 PM EDT Harvey Domínguez III, MD POINT OF CARE TEST ORDERABLES Final Result [facility] [address] [facility]. [address] * Transfuse RBC Transfusion Rate: Per dept routine (10/28/2024 12:31 PM EDT) us Carlos Marks MD NURSING TREATMENT ORDERABLE S - BLOOD ADMIN Final Result Performing Organization Address [facility] Co de Phone Number EXTERNAL * Transfuse RBC Transfusion Rate: Per dept routine, 1 Units (10/28/2024 12:31 PM EDT) us Carlos Marks MD NURSING TREATMENT ORDERABLE S - BLOOD ADMIN Final Result Performing Organization Address City/[facility] Co de Phone Number EXTERNAL * Protime-INR, STAT (10/28/2024 11:09 AM EDT) Protime 14.3 12.1 - 15.1 seconds 10/28/2024 11:29 AM EDT [facility] INR 1.1 0.9 - 1.1 10/28/2024 11:29 AM EDT [facility] Comment: RECOMMENDED THERAPEUTIC RANGES USING INR : Stable oral anticoagulant therapy: 2.0 - 3.0 Mechanical prosthetic heart valve: 2.5 - 3.5 Recurrent acute myocardial infarction: 2.5 - 3.5 Plasma 10/28/2024 11:0 9 AM EDT 10/28/2024 11:16 AM EDT us Carlos Marks MD LAB BLOOD ORDERABLES Final Result Performing Organization Address [facility] Co de Phone Number [facility] [address] [facility]. [address] [address] * (ABNORMAL) Lactic Acid, STAT (10/28/2024 11:09 AM EDT) Lactate 0.3(L) 0.5 - 2.2 mmol/L 10/28/2024 11:37 AM EDT [facility] Plasma 10/28/2024 11:0 9 AM EDT 10/28/2024 11:15 AM EDT us Carlos Kulshrestha MD LAB BLOOD ORDERABLES Final Result [facility] [address] * Magnesium, STAT (10/28/2024 11:09 AM EDT) Magnesium 2.1 1.5 - 2.5 mg/dL 10/28/2024 11:47 AM EDT [facility] Plasma 10/28/2024 11:0 9 AM EDT 10/28/2024 11:16 AM EDT us Carlos Marks MD LAB BLOOD ORDERABLES Final Result Performing Organization Address [facility] Co de Phone Number [facility] [address] * (ABNORMAL) Renal Function Panel w/EGFR, STAT (10/28/2024 11:09 AM EDT) Sodium 144 133 - 146 mmol/L 10/28/2024 11:47 AM EDT [facility] Potassium 3.4(L) 3.5 - 5.3 mmol/L 10/28/2024 11:47 AM EDT [facility] Chloride 112(H) 98 - 110 mmol/L 10/28/2024 11:47 AM EDT [facility] CO2 22 21 - 33 mmol/L 10/28/2024 11:47 AM EDT [facility] Anion Gap 10 3 - 16 mmol/L 10/28/2024 11:47 AM EDT [facility] BUN 57(H) 7 - 25 mg/dL 10/28/2024 11:47 AM EDT [facility] Creatinine 2.01(H) 0.60 - 1.30 mg/dL 10/28/2024 11:47 AM EDT [facility] Glucose 108(H) 70 - 100 mg/dL 10/28/2024 11:47 AM EDT [facility] Calcium 8.8 8.6 - 10.3 mg/dL 10/28/2024 11:47 AM EDT [facility] Phosphorus 4.0 2.1 - 4.7 mg/dL 10/28/2024 11:47 AM EDT [facility] Albumin 3.3(L) 3.5 - 5.7 g/dL 10/28/2024 11:47 AM EDT [facility] Osmolality, Calculated 314(H) 278 - 305 mOsm/kg 10/28/2024 11:47 AM EDT [facility] EGFR 42 10/28/2024 11:47 AM EDT [facility] Comment:As of 2021, the estimated [...] Disease. Am J Kidney Dis. 2020. Plasma 10/28/2024 11:0 9 AM EDT 10/28/2024 11:16 AM EDT us Carlos Marks MD LAB BLOOD ORDERABLES Final Result [facility] [address] [place], [place] [address] * (ABNORMAL) TEG-Bypass/ECMO/Liver HN (Factor function, Platelet/Fibrin Clot Strength w/Clot Breakdown, Heparinase In All Channels) (10/28/2024 11:09 AM EDT) Citrated Kaolin Reaction Time (TEGECMOLIVER) 9.2(H) 4.6 - 9.1 minutes 10/28/2024 12:30 PM EDT [facility] Citrated Kaolin W/Heparinase Reaction Time (TEGECMOLIVER) 9.6(H) 4.3 - 8.3 minutes 10/28/2024 12:30 PM EDT [facility] Citrated Kaolin Maximum Amplitude (TEGECMOLIVER) 51.2(L) 52.0 - 69.0 mm 10/28/2024 12:30 PM EDT [facility] Citrated Functional Fibrinogen W/Heparinase Maximum Amplitude(TEGEC MOLIVER) 21.6 15.0 - 34.0 mm 10/28/2024 12:30 PM EDT [facility] Citrated Rapid Teg W/Heparinase Maximum Amplitude (TEGECMOLIVER) 49.3(L) 53.0 - 69.0 mm 10/28/2024 12:30 PM EDT [facility] Citrated Kaolin w/Heparinase Percent Lysis (TEGECMOLIVER) 0.0 0.0 - 3.2 % 10/28/2024 12:30 PM EDT [facility] Whole Blood (Citrate) 10/28/2024 11:09 AM EDT 10/28/2024 11:14 AM EDT Kemar Sahni MD LAB BLOOD ORDERABLES Final Result Performing Organization Address City/State/[facility] Co de Phone Number [facility] [address] * (ABNORMAL) CBC (10/28/2024 10:21 AM EDT) WBC 4.1 3.8 - 10.8 10E3/uL 10/28/2024 10:41 AM EDT [facility] RBC 2.30(L) 4.20 - 5.80 10E6/uL 10/28/2024 10:41 AM EDT [facility] Hemoglobin 7.1(L) 13.2 - 17.1 g/dL 10/28/2024 10:41 AM EDT [facility] Hematocrit 20.4(L) 38.5 - 50.0 % 10/28/2024 10:41 AM EDT [facility] MCV 88.5 80.0 - 100.0 fL 10/28/2024 10:41 AM EDT [facility] MCH 30.7 27.0 - 33.0 pg 10/28/2024 10:41 AM EDT [facility] MCHC 34.7 32.0 - 36.0 g/dL 10/28/2024 10:41 AM EDT [facility] RDW 18.7(H) 11.0 - 15.0 % 10/28/2024 10:41 AM EDT [facility] Platelets 37(L) 140 - 400 10E3/uL 10/28/2024 10:41 AM EDT [facility] Comment: CNV Specimen checked for clots. None detected. MPV 7.6 7.5 - 11.5 fL 10/28/2024 10:41 AM EDT [facility] Whole Blood 10/28/2024 10:2 1 AM EDT 10/28/2024 10:29 AM EDT Carlos Marks MD LAB BLOOD ORDERABLES Final Result Performing Organization Address City/[facility]/ZIP Co de Phone Number [facility] [address] [facility]. [address] * POC Glucose Monitoring Device (10/28/2024 9:07 AM EDT) POC Glucose Monitoring Device 97 70 - 100 mg/dL 10/28/2024 9:08 AM EDT [facility] Blood 10/28/2024 9:07 AM EDT 10/28/2024 9:08 AM EDT Harvey Domínguez III, MD POINT OF CARE TEST ORDERABLES Final Result Performing Organization Address City/[facility]/ZIP Co de Phone Number [facility] [address] [facility]. [address] * (ABNORMAL) Tacrolimus level (10/28/2024 8:20 AM EDT) Tacrolimus (LC-MS) <1.0(L) 3.0 - 15.0 ng/mL 10/28/2024 2:02 PM EDT [facility] Comment:Performed via liquid chromatography tandem mass spectrometry. Detection limit: 1 ng/mL. Individual target concentrations may vary due to target organ and time after transplant. This test has been developed and its performance characteristics determined by [facility] which is certified under the Clinical Laboratory Improvement Amendment of 1988 (CLIA-88) to perform high complexity testing. The test has not been cleared or approved by the US Food and Drug Administration (FDA). The FDA has determined that such clearance is not necessary. The test should be used for clinical purposes and is not regarded as investigational. Whole Blood 10/28/2024 8:20 AM EDT 10/28/2024 8:29 AM EDT Priti Geiger [facility] BLOOD ORDERABLES Final Re sult Performing Organization Address [facility]/ZIP Co de Phone Number [facility] [address] [facility]. [address] * (ABNORMAL) POC Glucose Monitoring Device (10/28/2024 8:10 AM EDT) POC Glucose Monitoring Device 102(H) 70 - 100 mg/dL 10/28/2024 8:11 AM EDT [facility] Blood 10/28/2024 8:10 AM EDT 10/28/2024 8:11 AM EDT Harvey Domínguez III, MD POINT OF CARE TEST ORDERABLES Final Result Performing Organization Address [facility] Co de Phone Number [facility] [address] [facility]. [address] * POC Glucose Monitoring Device (10/28/2024 6:17 AM EDT) POC Glucose Monitoring Device 100 70 - 100 mg/dL 10/28/2024 6:18 AM EDT [facility] Blood 10/28/2024 6:17 AM EDT 10/28/2024 6:18 AM EDT Harvey Domínguez III, MD POINT OF CARE TEST ORDERABLES Final Result Performing Organization Address City/[facility] Co de Phone Number [facility] [address] [facility]. [address] * Prepare Platelets, leukoreduced (10/28/2024 6:15 AM EDT) Product Code A6707G32 HCLL Unit Number [id number] HCLL Dispense Status Presumed Transfused_PT HCLL Blood Expiration Date HCLL Coding System [id number] HCLL Product Code J7022P26 HCLL Unit Number [id number] HCLL Dispense Status Presumed Transfused_PT HCLL Blood Expiration Date [id number] HCLL Coding System [id number] HCLL us Attending Provider Unknown BLOOD BANK PRODUCT OR DERABLES Final Result Performing Organization Address [facility] de Phone Number HCLL * Prepare Fresh Frozen Plasma (10/28/2024 6:15 AM EDT) Product Code P0404O89 HCLL Unit Number [id number] HCLL Dispense Status Released from Crossmatch_RE HCLL Blood Expiration Date HCLL Coding System HIJS204 HCLL Product Code V0898F29 HCLL Unit Number [id number] HCLL Dispense Status Presumed Transfused_PT HCLL Blood Expiration Date HCLL Coding System CRQO304 HCLL Product Code O1351T62 HCLL Unit Number [id number] HCLL Dispense Status Released from Crossmatch_RE HCLL Blood Expiration Date HCLL Coding System [id number] HCLL Product Code G9478C38 HCLL Unit Number [id number] HCLL Dispense Status Presumed Transfused_PT HCLL Blood Expiration Date HCLL Coding System WGQH607 HCLL Product Code N0892M28 HCLL Unit Number [id number] HCLL Dispense Status Released from Crossmatch_RE HCLL Blood Expiration Date HCLL Coding System [id number] HCLL us Attending Provider Unknown BLOOD BANK PRODUCT OR DERABLES Final Result Performing Organization Address City/[facility] Co de Phone Number HCLL * Prepare RBC, leukoreduced (10/28/2024 6:15 AM EDT) Product Code C8687X53 HCLL Unit Number [id number] HCLL Dispense Status Released from Crossmatch_RE HCLL Blood Expiration Date 136997057632 HCLL Coding System [id number] HCLL Product Code N1557J99 HCLL Unit Number [id number] HCLL Dispense Status Presumed Transfused_PT HCLL Blood Expiration Date 201352674619 HCLL Coding System UDML510 HCLL Product Code O8443E94 HCLL Unit Number [id number] HCLL Dispense Status Released from Crossmatch_RE HCLL Blood Expiration Date 280975976012 HCLL Coding System ESXK766 HCLL Product Code V4807F06 HCLL Unit Number [id number] HCLL Dispense Status Presumed Transfused_PT HCLL Blood Expiration Date 699866811779 HCLL Coding System YGXN257 HCLL Product Code X9761A71 HCLL Unit Number [id number] HCLL Dispense Status Released from Crossmatch_RE HCLL Blood Expiration Date 329857558762 HCLL Coding System [id number] HCLL us Attending Provider Unknown BLOOD BANK PRODUCT OR DERABLES Final Result Performing Organization Address City/[facility] Co de Phone Number HCLL * Prepare Platelets, leukoreduced, 1 Units (10/28/2024 6:15 AM EDT) Product Code R3807B10 HCLL Unit Number [id number] HCLL Dispense Status Presumed Transfused_PT HCLL Blood Expiration Date 813973715693 HCLL Coding System PGQG183 HCLL Blood Bank Product us John Pina MD BLOOD BANK PRODUCT ORDERABLES F inal Result Performing Organization Address City/[facility]/ZIP Co de Phone Number HCLL * Prepare Cryoprecipitate, 1 Units (10/28/2024 6:15 AM EDT) Product Code Q0045U20 HCLL Unit Number [id number] HCLL Dispense Status Presumed Transfused_PT HCLL Blood Expiration Date HCLL Coding System BWCS484 HCLL Product Code S9007C83 HCLL Unit Number [id number] HCLL Dispense Status Presumed Transfused_PT HCLL Blood Expiration Date HCLL Coding System NNUF824 HCLL Blood Bank Product John Pina MD BLOOD BANK PRODUCT ORDERABLES F inal Result Performing Organization Address [facility] Co de Phone Number HCLL * Prepare Fresh Frozen Plasma, 1 Units (10/28/2024 6:15 AM EDT) Product Code M4499X06 HCLL Unit Number [id number] HCLL Dispense Status Presumed Transfused_PT HCLL Blood Expiration Date HCLL Coding System GMWR828 HCLL Blood Bank Product John Pina MD BLOOD BANK PRODUCT ORDERABLES F inal Result Performing Organization Address [facility] Co de Phone Number HCLL * Prepare Cryoprecipitate, 1 Units (10/28/2024 6:15 AM EDT) Product Code F5552G22 HCLL Unit Number [id number] HCLL Dispense Status Presumed Transfused_PT HCLL Blood Expiration Date HCLL Coding System LMGI832 HCLL Product Code N4344K86 HCLL Unit Number [id number] HCLL Dispense Status Presumed Transfused_PT HCLL Blood Expiration Date 638226316663 HCLL Coding System VHYF386 HCLL Product Code H6474H40 HCLL Unit Number [id number] HCLL Dispense Status Presumed Transfused_PT HCLL Blood Expiration Date 507884262146 HCLL Coding System GZGL093 HCLL Product Code H1425B12 HCLL Unit Number [id number] HCLL Dispense Status Presumed Transfused_PT HCLL Blood Expiration Date 965361301444 [facility] Coding System [id number] HCLL Blood Bank Product us John Pina MD BLOOD BANK PRODUCT ORDERABLES F inal Result [facility] * (ABNORMAL) POC Glucose Monitoring Device (10/28/2024 4:55 AM EDT) [facility] Signature POC Glucose Monitoring Device 104(H) 70 - 100 mg/dL 10/28/2024 4:57 AM EDT [facility] Blood 10/28/2024 4:55 AM EDT 10/28/2024 4:57 AM EDT us Harvey Domínguez III, MD POINT OF CARE TEST ORDERABLES Final Result Performing Organization Address City/[facility]/ZIP Co de Phone Number [facility] [address] * TEG-Bypass/ECMO/Liver HN (Factor function, Platelet/Fibrin Clot Strength w/Clot Breakdown, Heparinase In All Channels) (10/28/2024 4:13 AM EDT) Citrated Kaolin Reaction Time (TEGECMOLIVER) 7.2 4.6 - 9.1 minutes 10/28/2024 5:38 AM EDT [facility] Citrated Kaolin W/Heparinase Reaction Time (TEGECMOLIVER) 7.8 4.3 - 8.3 minutes 10/28/2024 5:38 AM EDT [facility] Citrated Kaolin Maximum Amplitude (TEGECMOLIVER) 53.0 52.0 - 69.0 mm 10/28/2024 5:38 AM EDT [facility] Citrated Functional Fibrinogen W/Heparinase Maximum Amplitude(TEGEC MOLIVER) 21.4 15.0 - 34.0 mm 10/28/2024 5:38 AM EDT [facility] Citrated Rapid Teg W/Heparinase Maximum Amplitude (TEGECMOLIVER) 54.7 53.0 - 69.0 mm 10/28/2024 5:38 AM EDT [facility] Citrated Kaolin w/Heparinase Percent Lysis (TEGECMOLIVER) 0.0 0.0 - 3.2 % 10/28/2024 5:38 AM EDT [facility] Whole Blood (Citrate) 10/28/2024 4:13 AM EDT 10/28/2024 4:28 AM EDT Kemar Sahni MD LAB BLOOD ORDERABLES Final Result Performing Organization Address City/[facility] Co de Phone Number [facility] [address] [facility]. [address] * Protime-INR (10/28/2024 4:13 AM EDT) Protime 14.6 12.1 - 15.1 seconds 10/28/2024 4:53 AM EDT [facility] INR 1.1 0.9 - 1.1 10/28/2024 4:53 AM EDT [facility] Comment: RECOMMENDED THERAPEUTIC RANGES USING INR : Stable oral anticoagulant therapy: 2.0 - 3.0 Mechanical prosthetic heart valve: 2.5 - 3.5 Recurrent acute myocardial infarction: 2.5 - 3.5 Plasma 10/28/2024 4:13 AM EDT 10/28/2024 4:41 AM EDT Kemar Sahni MD LAB BLOOD ORDERABLES Final Result [facility] [address] [facility]. [address] * Magnesium (10/28/2024 4:13 AM EDT) Magnesium 2.2 1.5 - 2.5 mg/dL 10/28/2024 5:15 AM EDT [facility] Plasma 10/28/2024 4:13 AM EDT 10/28/2024 4:41 AM EDT Kemar Sahni MD LAB BLOOD ORDERABLES Final Result [facility] [address] [place] [address], [facility] * (ABNORMAL) Hepatic Function Panel (10/28/2024 4:13 AM EDT) Total Bilirubin 2.3(H) 0.0 - 1.5 mg/dL 10/28/2024 5:15 AM EDT [facility] Bilirubin, Direct 1.67(H) 0.00 - 0.40 mg/dL 10/28/2024 5:15 AM EDT [facility] AST 44(H) 13 - 39 U/L 10/28/2024 5:15 AM EDT [facility] ALT 101(H) 7 - 52 U/L 10/28/2024 5:15 AM EDT [facility] Alkaline Phosphatase 26(L) 36 - 125 U/L 10/28/2024 5:15 AM EDT [facility] Total Protein 4.5(L) 6.4 - 8.9 g/dL 10/28/2024 5:15 AM EDT [facility] Albumin 3.1(L) 3.5 - 5.7 g/dL 10/28/2024 5:15 AM EDT [facility] Bilirubin, Indirect 0.63 0.00 - 1.10 mg/dL 10/28/2024 5:15 AM EDT [facility] Plasma 10/28/2024 4:13 AM EDT 10/28/2024 4:41 AM EDT us Kemar Sahni MD LAB BLOOD ORDERABLES Final Result [facility] [address] [place] [address], [facility] * (ABNORMAL) Renal Function Panel w/EGFR (10/28/2024 4:13 AM EDT) Sodium 142 133 - 146 mmol/L 10/28/2024 5:15 AM EDT [facility] Potassium 3.5 3.5 - 5.3 mmol/L 10/28/2024 5:15 AM EDT [facility] Chloride 111(H) 98 - 110 mmol/L 10/28/2024 5:15 AM EDT [facility] CO2 22 21 - 33 mmol/L 10/28/2024 5:15 AM EDT [facility] Anion Gap 9 3 - 16 mmol/L 10/28/2024 5:15 AM EDT [facility] BUN 58(H) 7 - 25 mg/dL 10/28/2024 5:15 AM EDT [facility] Creatinine 2.24(H) 0.60 - 1.30 mg/dL 10/28/2024 5:15 AM EDT [facility] Glucose 103(H) 70 - 100 mg/dL 10/28/2024 5:15 AM EDT [facility] Calcium 9.1 8.6 - 10.3 mg/dL 10/28/2024 5:15 AM EDT [facility] Phosphorus 4.8(H) 2.1 - 4.7 mg/dL 10/28/2024 5:15 AM EDT [facility] Albumin 3.1(L) 3.5 - 5.7 g/dL 10/28/2024 5:15 AM EDT [facility] Osmolality, Calculated 310(H) 278 - 305 mOsm/kg 10/28/2024 5:15 AM EDT [facility] EGFR 37 10/28/2024 5:15 AM EDT [facility] Comment:As of 2021, the estimated [...] Disease. Am J Kidney Dis. 2020. Plasma 10/28/2024 4:13 AM EDT 10/28/2024 4:41 AM EDT Kemar Sahni MD LAB BLOOD ORDERABLES Final Result [facility] [address] [place] [address], [facility] * (ABNORMAL) CBC (10/28/2024 4:13 AM EDT) WBC 4.5 3.8 - 10.8 10E3/uL 10/28/2024 5:09 AM EDT [facility] RBC 2.39(L) 4.20 - 5.80 10E6/uL 10/28/2024 5:09 AM EDT [facility] Hemoglobin 7.3(L) 13.2 - 17.1 g/dL 10/28/2024 5:09 AM EDT [facility] Hematocrit 21.0(L) 38.5 - 50.0 % 10/28/2024 5:09 AM EDT [facility] MCV 87.8 80.0 - 100.0 fL 10/28/2024 5:09 AM EDT [facility] MCH 30.5 27.0 - 33.0 pg 10/28/2024 5:09 AM EDT [facility] MCHC 34.7 32.0 - 36.0 g/dL 10/28/2024 5:09 AM EDT [facility] RDW 18.7(H) 11.0 - 15.0 % 10/28/2024 5:09 AM EDT [facility] Platelets 38(L) 140 - 400 10E3/uL 10/28/2024 5:09 AM EDT [facility] Comment: CNV Specimen checked for clots. None detected. MPV 7.6 7.5 - 11.5 fL 10/28/2024 5:09 AM EDT [facility] Whole Blood 10/28/2024 4:13 AM EDT 10/28/2024 4:41 AM EDT Kemar Sanhi MD LAB BLOOD ORDERABLES Final Result [facility] [address] * (ABNORMAL) POC Glucose Monitoring Device (10/28/2024 4:04 AM EDT) POC Glucose Monitoring Device 103(H) 70 - 100 mg/dL 10/28/2024 4:05 AM EDT [facility] Blood 10/28/2024 4:04 AM EDT 10/28/2024 4:05 AM EDT us Harvey Domínguez III, MD POINT OF CARE TEST ORDERABLES Final Result Performing Organization Address City/[facility]/ZIP Co de Phone Number [facility] [address] * (ABNORMAL) POC Glucose Monitoring Device (10/28/2024 3:00 AM EDT) POC Glucose Monitoring Device 106(H) 70 - 100 mg/dL 10/28/2024 3:01 AM EDT [facility] Blood 10/28/2024 3:00 AM EDT 10/28/2024 3:01 AM EDT us Harvey Domínguez III, MD POINT OF CARE TEST ORDERABLES Final Result Performing Organization Address [facility] Co de Phone Number [facility] [address] * (ABNORMAL) POC Glucose Monitoring Device (10/28/2024 2:32 AM EDT) POC Glucose Monitoring Device 109(H) 70 - 100 mg/dL 10/28/2024 2:33 AM EDT [facility] Blood 10/28/2024 2:32 AM EDT 10/28/2024 2:33 AM EDT us Harvey Domínguez III, MD POINT OF CARE TEST ORDERABLES Final Result [facility] [address] * (ABNORMAL) POC Glucose Monitoring Device (10/28/2024 2:14 AM EDT) POC Glucose Monitoring Device 115(H) 70 - 100 mg/dL 10/28/2024 2:15 AM EDT [facility] Blood 10/28/2024 2:14 AM EDT 10/28/2024 2:15 AM EDT Result [facility] Harvey Domínguez III, MD POINT OF CARE TEST ORDERABLES Final Result [facility] [address] * (ABNORMAL) POC Glucose Monitoring Device (10/28/2024 2:03 AM EDT) POC Glucose Monitoring Device 101(H) 70 - 100 mg/dL 10/28/2024 2:04 AM EDT [facility] Blood 10/28/2024 2:03 AM EDT 10/28/2024 2:04 AM EDT Harvey Domínguez III, MD POINT OF CARE TEST ORDERABLES Final Result Performing Organization Address City/[facility]/ZIP Co de Phone Number [facility] [address] [facility]. [address] * Transfuse RBC Transfusion Rate: Per dept routine (10/28/2024 1:51 AM EDT) John Moreno MD NURSING TREATMENT ORDERABLES - BLOOD ADMIN Final Result EXTERNAL * Transfuse RBC Transfusion Rate: Per dept routine, 1 Units (10/28/2024 1:51 AM EDT) John Moreno MD NURSING TREATMENT ORDERABLES - BLOOD ADMIN Final Result EXTERNAL * (ABNORMAL) TEG-Bypass/ECMO/Liver HN (Factor function, Platelet/Fibrin Clot Strength w/Clot Breakdown, Heparinase In All Channels) (10/28/2024 12:05 AM EDT) Citrated Kaolin Reaction Time (TEGECMOLIVER) 7.5 4.6 - 9.1 minutes 10/28/2024 1:22 AM EDT [facility] Citrated Kaolin W/Heparinase Reaction Time (TEGECMOLIVER) 7.7 4.3 - 8.3 minutes 10/28/2024 1:22 AM EDT [facility] Citrated Kaolin Maximum Amplitude (TEGECMOLIVER) 54.4 52.0 - 69.0 mm 10/28/2024 1:22 AM EDT [facility] Citrated Functional Fibrinogen W/Heparinase Maximum Amplitude(TEGEC MOLIVER) 20.4 15.0 - 34.0 mm 10/28/2024 1:22 AM EDT [facility] Citrated Rapid Teg W/Heparinase Maximum Amplitude (TEGECMOLIVER) 51.0(L) 53.0 - 69.0 mm 10/28/2024 1:22 AM EDT [facility] Citrated Kaolin w/Heparinase Percent Lysis (TEGECMOLIVER) 0.0 0.0 - 3.2 % 10/28/2024 1:22 AM EDT [facility] Whole Blood (Citrate) 10/28/2024 12:05 AM EDT 10/28/2024 12:09 AM EDT Kemar Sahni MD LAB BLOOD ORDERABLES Final Result Performing Organization Address City/State/[facility] Co de Phone Number [facility] [address] [id number] * Magnesium (10/28/2024 12:05 AM EDT) Magnesium 2.2 1.5 - 2.5 mg/dL 10/28/2024 1:59 AM EDT [facility] Plasma 10/28/2024 12:0 5 AM EDT 10/28/2024 12:11 AM EDT Kemar Sahni MD LAB BLOOD ORDERABLES Final Result [facility] [address] [id number], [facility] * (ABNORMAL) Renal Function Panel w/EGFR (10/28/2024 12:05 AM EDT) Sodium 144 133 - 146 mmol/L 10/28/2024 1:59 AM EDT [facility] Potassium 3.4(L) 3.5 - 5.3 mmol/L 10/28/2024 1:59 AM EDT [facility] Chloride 112(H) 98 - 110 mmol/L 10/28/2024 1:59 AM EDT [facility] CO2 19(L) 21 - 33 mmol/L 10/28/2024 1:59 AM EDT [facility] Anion Gap 13 3 - 16 mmol/L 10/28/2024 1:59 AM EDT [facility] BUN 59(H) 7 - 25 mg/dL 10/28/2024 1:59 AM EDT [facility] Creatinine 2.42(H) 0.60 - 1.30 mg/dL 10/28/2024 1:59 AM EDT [facility] Glucose 118(H) 70 - 100 mg/dL 10/28/2024 1:59 AM EDT [facility] Calcium 9.0 8.6 - 10.3 mg/dL 10/28/2024 1:59 AM EDT [facility] Phosphorus 5.3(H) 2.1 - 4.7 mg/dL 10/28/2024 1:59 AM EDT [facility] Albumin 3.1(L) 3.5 - 5.7 g/dL 10/28/2024 1:59 AM EDT [facility] Osmolality, Calculated 316(H) 278 - 305 mOsm/kg 10/28/2024 1:59 AM EDT [facility] EGFR 34 10/28/2024 1:59 AM EDT [facility] Comment:As of 2021, the estimated [...] Disease. Am J Kidney Dis. 2020. Plasma 10/28/2024 12:0 5 AM EDT 10/28/2024 12:11 AM EDT us Kemar Sahni MD LAB BLOOD ORDERABLES Final Result [facility] [address] [id number], [facility] * (ABNORMAL) Differential (10/28/2024 12:05 AM EDT) Neutrophils Relative 88.6(H) 40.0 - 80.0 % 10/28/2024 12:41 AM EDT [facility] Lymphocytes Relative 2.5(L) 15.0 - 45.0 % 10/28/2024 12:41 AM EDT [facility] Monocytes Relative 6.1 0.0 - 12.0 % 10/28/2024 12:41 AM EDT [facility] Eosinophils Relative 2.4 0.0 - 8.0 % 10/28/2024 12:41 AM EDT [facility] Basophils Relative 0.4 0.0 - 1.0 % 10/28/2024 12:41 AM EDT [facility] nRBC 0 0 - 0 /100 WBC 10/28/2024 12:41 AM EDT [facility] Neutrophils Absolute 4,341 1,520 - 8,640 /uL 10/28/2024 12:41 AM EDT [facility] Lymphocytes Absolute 123(L) 570 - 4,860 /uL 10/28/2024 12:41 AM EDT [facility] Monocytes Absolute 299 0 - 1,296 /uL 10/28/2024 12:41 AM EDT [facility] Eosinophils Absolute 118 0 - 864 /uL 10/28/2024 12:41 AM EDT [facility] Basophils Absolute 20 0 - 108 /uL 10/28/2024 12:41 AM EDT [facility] Whole Blood 10/28/2024 12:0 5 AM EDT 10/28/2024 12:11 AM EDT Kemar Sahni MD LAB BLOOD ORDERABLES Final Result Performing Organization Address City/State/[facility] Co de Phone Number [facility] [address] [place] [address], [facility] * (ABNORMAL) CBC (10/28/2024 12:05 AM EDT) WBC 4.9 3.8 - 10.8 10E3/uL 10/28/2024 12:41 AM EDT [facility] RBC 2.18(L) 4.20 - 5.80 10E6/uL 10/28/2024 12:41 AM EDT [facility] Hemoglobin 6.7(L) 13.2 - 17.1 g/dL 10/28/2024 12:41 AM EDT [facility] Hematocrit 19.2(L) 38.5 - 50.0 % 10/28/2024 12:41 AM EDT [facility] MCV 87.8 80.0 - 100.0 fL 10/28/2024 12:41 AM EDT [facility] MCH 30.6 27.0 - 33.0 pg 10/28/2024 12:41 AM EDT [facility] MCHC 34.8 32.0 - 36.0 g/dL 10/28/2024 12:41 AM EDT [facility] RDW 19.6(H) 11.0 - 15.0 % 10/28/2024 12:41 AM EDT [facility] Platelets 45(L) 140 - 400 10E3/uL 10/28/2024 12:41 AM EDT [facility] Comment: CNV Specimen checked for clots. None detected. MPV 7.8 7.5 - 11.5 fL 10/28/2024 12:41 AM EDT [facility] Whole Blood 10/28/2024 12:0 5 AM EDT 10/28/2024 12:11 AM EDT Kemar Sahni MD LAB BLOOD ORDERABLES Final Result Performing Organization Address City/[facility]/ZIP Co de Phone Number [facility] [address] [place] [address]. [address] * (ABNORMAL) POC Glucose Monitoring Device (10/28/2024 12:03 AM EDT) POC Glucose Monitoring Device 122(H) 70 - 100 mg/dL 10/28/2024 12:04 AM EDT [facility] Blood 10/28/2024 12:0 3 AM EDT 10/28/2024 12:04 AM EDT Harvey Domínguez III, MD POINT OF CARE TEST ORDERABLES Final Result Performing Organization Address City/[facility] Co de Phone Number [facility] [address] [facility]. [address] * (ABNORMAL) POC Glucose Monitoring Device (10/27/2024 10:03 PM EDT) POC Glucose Monitoring Device 127(H) 70 - 100 mg/dL 10/27/2024 10:03 PM EDT [facility] Blood 10/27/2024 10:0 3 PM EDT 10/27/2024 10:03 PM EDT Harvey Domínguez III, MD POINT OF CARE TEST ORDERABLES Final Result [facility] [address] [place] [facility]. [address] * (ABNORMAL) POC Glucose Monitoring Device (10/27/2024 8:06 PM EDT) POC Glucose Monitoring Device 128(H) 70 - 100 mg/dL 10/27/2024 8:45 PM EDT [facility] Blood 10/27/2024 8:06 PM EDT 10/27/2024 8:45 PM EDT Harvey Domínguez III, MD POINT OF CARE TEST ORDERABLES Final Result Performing Organization Address City/[facility]/ZIP Co de Phone Number [facility] [address] * (ABNORMAL) POC Glucose Monitoring Device (10/27/2024 6:00 PM EDT) POC Glucose Monitoring Device 128(H) 70 - 100 mg/dL 10/27/2024 6:00 PM EDT [facility] Blood 10/27/2024 6:00 PM EDT 10/27/2024 6:00 PM EDT Harvey Domínguez III, MD POINT OF CARE TEST ORDERABLES Final Result Performing Organization Address [facility] Co de Phone Number [facility] [address] [facility]. [address] * Lactic Acid, STAT (10/27/2024 5:41 PM EDT) Lactate 0.5 0.5 - 2.2 mmol/L 10/27/2024 6:28 PM EDT [facility] Plasma 10/27/2024 5:41 PM EDT 10/27/2024 5:49 PM EDT Narrative [facility] - 10/27/2024 6:28 PM EDT Redraw John Moreno MD LAB BLOOD ORDERABLES Final R esult [facility] [address] [facility]. [address] * (ABNORMAL) Hepatic Function Panel, STAT (10/27/2024 5:13 PM EDT) Total Bilirubin 1.7(H) 0.0 - 1.5 mg/dL 10/27/2024 5:50 PM EDT [facility] Bilirubin, Direct 1.17(H) 0.00 - 0.40 mg/dL 10/27/2024 5:50 PM EDT [facility] AST 60(H) 13 - 39 U/L 10/27/2024 5:50 PM EDT [facility] ALT 134(H) 7 - 52 U/L 10/27/2024 5:50 PM EDT [facility] Alkaline Phosphatase 27(L) 36 - 125 U/L 10/27/2024 5:50 PM EDT [facility] Total Protein 4.1(L) 6.4 - 8.9 g/dL 10/27/2024 5:50 PM EDT [facility] Albumin 2.9(L) 3.5 - 5.7 g/dL 10/27/2024 5:50 PM EDT [facility] Bilirubin, Indirect 0.53 0.00 - 1.10 mg/dL 10/27/2024 5:50 PM EDT [facility] Plasma 10/27/2024 5:13 PM EDT 10/27/2024 5:23 PM EDT Shay Plata MD LAB BLOOD ORDERABLES Final Result [facility] [address] [place] [address], [facility] * (ABNORMAL) TEG-Bypass/ECMO/Liver HN (Factor function, Platelet/Fibrin Clot Strength w/Clot Breakdown, Heparinase In All Channels) (10/27/2024 5:13 PM EDT) Citrated Kaolin Reaction Time (TEGECMOLIVER) 8.0 4.6 - 9.1 minutes 10/27/2024 6:56 PM EDT [facility] Citrated Kaolin W/Heparinase Reaction Time (TEGECMOLIVER) 6.8 4.3 - 8.3 minutes 10/27/2024 6:56 PM EDT [facility] Citrated Kaolin Maximum Amplitude (TEGECMOLIVER) 55.4 52.0 - 69.0 mm 10/27/2024 6:56 PM EDT [facility] Citrated Functional Fibrinogen W/Heparinase Maximum Amplitude(TEGEC MOLIVER) 22.9 15.0 - 34.0 mm 10/27/2024 6:56 PM EDT [facility] Citrated Rapid Teg W/Heparinase Maximum Amplitude (TEGECMOLIVER) 50.8(L) 53.0 - 69.0 mm 10/27/2024 6:56 PM EDT [facility] Citrated Kaolin w/Heparinase Percent Lysis (TEGECMOLIVER) 0.1 0.0 - 3.2 % 10/27/2024 6:56 PM EDT [facility] Whole Blood (Citrate) 10/27/2024 5:13 PM EDT 10/27/2024 5:20 PM EDT Kemar Sahni MD LAB BLOOD ORDERABLES Final Result Performing Organization Address City/[facility] Co de Phone Number [facility] [address] [facility]. [address] * (ABNORMAL) Protime-INR (10/27/2024 5:13 PM EDT) Protime 15.2(H) 12.1 - 15.1 seconds 10/27/2024 5:40 PM EDT [facility] INR 1.1 0.9 - 1.1 10/27/2024 5:40 PM EDT [facility] Comment: RECOMMENDED THERAPEUTIC RANGES USING INR : Stable oral anticoagulant therapy: 2.0 - 3.0 Mechanical prosthetic heart valve: 2.5 - 3.5 Recurrent acute myocardial infarction: 2.5 - 3.5 Plasma 10/27/2024 5:13 PM EDT 10/27/2024 5:23 PM EDT Kemar Sahni MD LAB BLOOD ORDERABLES Final Result [facility] [address] [facility]. [address] * Magnesium (10/27/2024 5:13 PM EDT) Magnesium 2.4 1.5 - 2.5 mg/dL 10/27/2024 5:53 PM EDT [facility] Plasma 10/27/2024 5:13 PM EDT 10/27/2024 5:23 PM EDT Kemar Sahni MD LAB BLOOD ORDERABLES Final Result [facility] [address] * (ABNORMAL) Hepatic Function Panel (10/27/2024 5:13 PM EDT) Total Bilirubin 1.7(H) 0.0 - 1.5 mg/dL 10/27/2024 5:53 PM EDT [facility] Bilirubin, Direct 1.10(H) 0.00 - 0.40 mg/dL 10/27/2024 5:53 PM EDT [facility] AST 62(H) 13 - 39 U/L 10/27/2024 5:53 PM EDT [facility] ALT 134(H) 7 - 52 U/L 10/27/2024 5:53 PM EDT [facility] Alkaline Phosphatase 27(L) 36 - 125 U/L 10/27/2024 5:53 PM EDT [facility] Total Protein 4.1(L) 6.4 - 8.9 g/dL 10/27/2024 5:53 PM EDT [facility] Albumin 2.9(L) 3.5 - 5.7 g/dL 10/27/2024 5:53 PM EDT [facility] Bilirubin, Indirect 0.60 0.00 - 1.10 mg/dL 10/27/2024 5:53 PM EDT [facility] Plasma 10/27/2024 5:13 PM EDT 10/27/2024 5:23 PM EDT Kemar Sahni MD LAB BLOOD ORDERABLES Final Result [facility] [address] * (ABNORMAL) Renal Function Panel w/EGFR (10/27/2024 5:13 PM EDT) Sodium 142 133 - 146 mmol/L 10/27/2024 5:53 PM EDT [facility] Potassium 3.4(L) 3.5 - 5.3 mmol/L 10/27/2024 5:53 PM EDT [facility] Chloride 109 98 - 110 mmol/L 10/27/2024 5:53 PM EDT [facility] CO2 22 21 - 33 mmol/L 10/27/2024 5:53 PM EDT [facility] Anion Gap 11 3 - 16 mmol/L 10/27/2024 5:53 PM EDT [facility] BUN 61(H) 7 - 25 mg/dL 10/27/2024 5:53 PM EDT [facility] Creatinine 2.42(H) 0.60 - 1.30 mg/dL 10/27/2024 5:53 PM EDT [facility] Glucose 125(H) 70 - 100 mg/dL 10/27/2024 5:53 PM EDT [facility] Calcium 8.8 8.6 - 10.3 mg/dL 10/27/2024 5:53 PM EDT [facility] Phosphorus 5.7(H) 2.1 - 4.7 mg/dL 10/27/2024 5:53 PM EDT [facility] Albumin 2.9(L) 3.5 - 5.7 g/dL 10/27/2024 5:53 PM EDT [facility] Osmolality, Calculated 313(H) 278 - 305 mOsm/kg 10/27/2024 5:53 PM EDT [facility] EGFR 34 10/27/2024 5:53 PM EDT [facility] Comment:As of 2021, the estimated [...] Disease. Am J Kidney Dis. 2020. Plasma 10/27/2024 5:13 PM EDT 10/27/2024 5:23 PM EDT Kemar Sahni MD LAB BLOOD ORDERABLES Final Result [facility] [address] [place] [address], [facility] * (ABNORMAL) CBC (10/27/2024 5:13 PM EDT) WBC 4.9 3.8 - 10.8 10E3/uL 10/27/2024 6:14 PM EDT [facility] RBC 2.44(L) 4.20 - 5.80 10E6/uL 10/27/2024 6:14 PM EDT [facility] Hemoglobin 7.4(L) 13.2 - 17.1 g/dL 10/27/2024 6:14 PM EDT [facility] Hematocrit 21.4(L) 38.5 - 50.0 % 10/27/2024 6:14 PM EDT [facility] MCV 87.6 80.0 - 100.0 fL 10/27/2024 6:14 PM EDT [facility] MCH 30.3 27.0 - 33.0 pg 10/27/2024 6:14 PM EDT [facility] MCHC 34.6 32.0 - 36.0 g/dL 10/27/2024 6:14 PM EDT [facility] RDW 19.6(H) 11.0 - 15.0 % 10/27/2024 6:14 PM EDT [facility] Platelets 47(L) 140 - 400 10E3/uL 10/27/2024 6:14 PM EDT [facility] Comment: CNV Specimen checked for clots. None detected. MPV 8.1 7.5 - 11.5 fL 10/27/2024 6:14 PM EDT [facility] Whole Blood 10/27/2024 5:13 PM EDT 10/27/2024 5:23 PM EDT us Kemar Sahni MD LAB BLOOD ORDERABLES Final Result [facility] [address] [facility]. [address] * (ABNORMAL) POC Glucose Monitoring Device (10/27/2024 3:57 PM EDT) POC Glucose Monitoring Device 131(H) 70 - 100 mg/dL 10/27/2024 3:58 PM EDT [facility] Blood 10/27/2024 3:57 PM EDT 10/27/2024 3:58 PM EDT Harvey Domínguez III, MD POINT OF CARE TEST ORDERABLES Final Result Performing Organization Address [facility]/ZIP Co de Phone Number [facility] [address] * (ABNORMAL) CBC, STAT (10/27/2024 2:40 PM EDT) WBC 5.8 3.8 - 10.8 10E3/uL 10/27/2024 2:54 PM EDT [facility] RBC 2.43(L) 4.20 - 5.80 10E6/uL 10/27/2024 2:54 PM EDT [facility] Hemoglobin 7.5(L) 13.2 - 17.1 g/dL 10/27/2024 2:54 PM EDT [facility] Hematocrit 21.5(L) 38.5 - 50.0 % 10/27/2024 2:54 PM EDT [facility] MCV 88.2 80.0 - 100.0 fL 10/27/2024 2:54 PM EDT [facility] MCH 30.7 27.0 - 33.0 pg 10/27/2024 2:54 PM EDT [facility] MCHC 34.8 32.0 - 36.0 g/dL 10/27/2024 2:54 PM EDT [facility] RDW 19.1(H) 11.0 - 15.0 % 10/27/2024 2:54 PM EDT [facility] Platelets 50(L) 140 - 400 10E3/uL 10/27/2024 2:54 PM EDT [facility] MPV 7.5 7.5 - 11.5 fL 10/27/2024 2:54 PM EDT [facility] Whole Blood 10/27/2024 2:40 PM EDT 10/27/2024 2:44 PM EDT us John Moreno MD LAB BLOOD ORDERABLES Final R esult [facility] [address] [id number], [facility] * (ABNORMAL) Blood Gas, Arterial, STAT (10/27/2024 2:40 PM EDT) O2 Sat, Arterial 98 10/27/2024 2:46 PM EDT [facility] FIO2 RA 10/27/2024 2:46 PM EDT [facility] pH, Arterial 7.37 7.35 - 7.45 10/27/2024 2:46 PM EDT [facility] pCO2, Arterial 35 35 - 45 mm Hg 10/27/2024 2:46 PM EDT [facility] pO2, Arterial 92 80 - 100 mm Hg 10/27/2024 2:46 PM EDT [facility] HCO3, Arterial 21(L) 22 - 26 mmol/L 10/27/2024 2:46 PM EDT [facility] CO2 Content,Arteri al 21(L) 23 - 27 mmol/L 10/27/2024 2:46 PM EDT [facility] Base Excess, Arterial -4.6(L) -2.0 - 3.0 mmol/L 10/27/2024 2:46 PM EDT [facility] %HBO2, Arterial 95.4 95.0 - 98.0 % 10/27/2024 2:46 PM EDT [facility] Carboxyhemoglo bin, Arterial 1.6 % 10/27/2024 2:46 PM EDT [facility] Comment: CARBOXYHEMOGLOBIN (CO) REFERENCE RANGES: Non-Smokers: <2 % Smokers: <8 % TOXIC: >20 % Methemoglobin, Arterial 1.0 0.0 - 1.5 % 10/27/2024 2:46 PM EDT [facility] Reduced hemoglobin, Arterial 2.1 0.0 - 5.0 % 10/27/2024 2:46 PM EDT [facility] Blood, Arterial 10/27/2024 2 :40 PM EDT 10/27/2024 2:44 PM EDT Narrative [facility] - 10/27/2024 2:46 PM EDT Post extubation John Moreno MD LAB BLOOD ORDERABLES Final R esult Performing Organization Address [facility]/ZIP Co de Phone Number [facility] [address] * (ABNORMAL) POC Glucose Monitoring Device (10/27/2024 2:06 PM EDT) [facility] Signature POC Glucose Monitoring Device 134(H) 70 - 100 mg/dL 10/27/2024 2:06 PM EDT [facility] Blood 10/27/2024 2:06 PM EDT 10/27/2024 2:06 PM EDT Harvey Domínguez III, MD POINT OF CARE TEST ORDERABLES Final Result Performing Organization Address [facility] de Phone Number [facility] [address] * (ABNORMAL) Blood gas, arterial (10/27/2024 12:35 PM EDT) O2 Sat, Arterial 99 10/27/2024 12:46 PM EDT [facility] FIO2 SBT 30% 10/27/2024 12:46 PM EDT [facility] pH, Arterial 7.35 7.35 - 7.45 10/27/2024 12:46 PM EDT [facility] pCO2, Arterial 37 35 - 45 mm Hg 10/27/2024 12:46 PM EDT [facility] pO2, Arterial 182(H) 80 - 100 mm Hg 10/27/2024 12:46 PM EDT [facility] HCO3, Arterial 21(L) 22 - 26 mmol/L 10/27/2024 12:46 PM EDT [facility] CO2 Content,Arteri al 22(L) 23 - 27 mmol/L 10/27/2024 12:46 PM EDT [facility] Base Excess, Arterial -4.8(L) -2.0 - 3.0 mmol/L 10/27/2024 12:46 PM EDT [facility] %HBO2, Arterial 96.3 95.0 - 98.0 % 10/27/2024 12:46 PM EDT [facility] Carboxyhemoglo bin, Arterial 1.7 % 10/27/2024 12:46 PM EDT [facility] Comment: CARBOXYHEMOGLOBIN (CO) REFERENCE RANGES: Non-Smokers: <2 % Smokers: <8 % TOXIC: >20 % Methemoglobin, Arterial 1.4 0.0 - 1.5 % 10/27/2024 12:46 PM EDT [facility] Reduced hemoglobin, Arterial 0.6 0.0 - 5.0 % 10/27/2024 12:46 PM EDT [facility] Blood, Arterial 10/27/2024 1 2:35 PM EDT 10/27/2024 12:42 PM EDT Narrative [facility] - 10/27/2024 12:46 PM EDT Please obtain post SBT us Shay Sifuentes MD LAB BLOOD ORDERABLES Final Resu lt [facility] [address] [place] [address], [facility] * (ABNORMAL) TEG-Bypass/ECMO/Liver HN (Factor function, Platelet/Fibrin Clot Strength w/Clot Breakdown, Heparinase In All Channels) (10/27/2024 12:07 PM EDT) [facility] Signature Citrated Kaolin Reaction Time (TEGECMOLIVER) 7.9 4.6 - 9.1 minutes 10/27/2024 1:24 PM EDT [facility] Citrated Kaolin W/Heparinase Reaction Time (TEGECMOLIVER) 8.3 4.3 - 8.3 minutes 10/27/2024 1:24 PM EDT [facility] Citrated Kaolin Maximum Amplitude (TEGECMOLIVER) 52.0 52.0 - 69.0 mm 10/27/2024 1:24 PM EDT [facility] Citrated Functional Fibrinogen W/Heparinase Maximum Amplitude(TEGEC MOLIVER) 20.1 15.0 - 34.0 mm 10/27/2024 1:24 PM EDT [facility] Citrated Rapid Teg W/Heparinase Maximum Amplitude (TEGECMOLIVER) 49.4(L) 53.0 - 69.0 mm 10/27/2024 1:24 PM EDT [facility] Citrated Kaolin w/Heparinase Percent Lysis (TEGECMOLIVER) 0.0 0.0 - 3.2 % 10/27/2024 1:24 PM EDT [facility] Whole Blood (Citrate) 10/27/2024 12:07 PM EDT 10/27/2024 12:09 PM EDT Kemar Sahni MD LAB BLOOD ORDERABLES Final Result Performing Organization Address [facility]/ZIP Co de Phone Number [facility] [address] [facility]. [address] * (ABNORMAL) POC Glucose Monitoring Device (10/27/2024 12:01 PM EDT) POC Glucose Monitoring Device 121(H) 70 - 100 mg/dL 10/27/2024 12:02 PM EDT [facility] Blood 10/27/2024 12:0 1 PM EDT 10/27/2024 12:01 PM EDT Harvey Domínguez III, MD POINT OF CARE TEST ORDERABLES Final Result [facility] [address] * (ABNORMAL) POC Glucose Monitoring Device (10/27/2024 10:59 AM EDT) POC Glucose Monitoring Device 126(H) 70 - 100 mg/dL 10/27/2024 11:10 AM EDT [facility] Blood 10/27/2024 10:5 9 AM EDT 10/27/2024 11:10 AM EDT Harvey Domínguez III, MD POINT OF CARE TEST ORDERABLES Final Result Performing Organization Address [facility] Co de Phone Number [facility] [address] * ECG 12 lead (MUSE) (10/27/2024 10:17 AM EDT) 10/27/2024 10:1 7 AM EDT Narrative MUSE - 10/27/2024 2:51 PM EDT Ventricular Rate: 91 BPM Atrial Rate: 91 BPM P-R Interval: 168 ms QRS Duration: 90 ms QT: 274 ms QTc: 337 ms P [place]: 60 degrees R [place]: -30 degrees T [place]: -15 degrees Diagnosis Line: NORMAL SINUS RHYTHM ^ LEFT AXIS DEVIATION, LEFT ANTERIOR HEMIBLOCK ^ NONSPECIFIC T WAVE CHANGE ^ ABNORMAL ECG ^ ^ Confirmed by MD ROLLY, [facility] ([id number]) on 10/27/2024 2:51:52 PM Shay Sifuentes MD ECG ORDERABLES Final Result Performing Organization Address [facility] Co de Phone Number MUSE * (ABNORMAL) POC Glucose Monitoring Device (10/27/2024 10:00 AM EDT) [facility] POC Glucose Monitoring Device 121(H) 70 - 100 mg/dL 10/27/2024 10:01 AM EDT [facility] Blood 10/27/2024 10:0 0 AM EDT 10/27/2024 10:01 AM EDT Harvey Domínguez III, MD POINT OF CARE TEST ORDERABLES Final Result Performing Organization Address City/[facility] Co de Phone Number [facility] [address] [facility] [place] [address], [facility] * US Renal Transplant (10/27/2024 9:51 AM EDT) Anatomical Region Laterality Modality Abdomen, Pelvis Ultrasound 10/27/2024 9:51 AM EDT Impressions 10/27/2024 10:28 AM EDT IMPRESSION: 1. Normal grayscale appearance of the renal transplant allograft. 2. Patent renal transplant vasculature and waveforms within normal limits. Report Verified by: Alberto Rodriguez MD at 10/27/2024 10:28 AM EDT Narrative 10/27/2024 10:28 AM EDT EXAM: US RENAL TRANSPLANT INDICATION: Postoperative 0 liver transplant. COMPARISON: None TECHNIQUE: Grayscale imaging acquisition was performed of the transplanted kidney and urinary bladder with limited color and spectral (duplex) Doppler analysis of the renal vasculature. FINDINGS: Renal transplant is visualized in the right lower quadrant. Transplant kidney measures 10.1 x 5.4 x 4.9 cm in size. There is no hydronephrosis. Trace perinephric edema but no fluid collections are identified. No masses or calculi are appreciated. Normal arterial and venous waveforms are demonstrated. Resistive indices within the renal parenchyma range from 0.68- 0.86. The urinary bladder is collapsed with a Berkowitz balloon present.. Procedure Note Alberto Rodriguez MD - 10/27/2024 EXAM: US RENAL TRANSPLANT INDICATION: Postoperative 0 liver transplant. COMPARISON: None TECHNIQUE: Grayscale imaging acquisition was performed of thetransplanted kidney and urinary bladder with limited color and spectral(duplex) Doppler analysis of the renal vasculature. FINDINGS: Renal transplant is visualized in the right lower quadrant. Transplantkidney measures 10.1 x 5.4 x 4.9 cm in size. There is no hydronephrosis.Trace perinephric edema but no fluid collections are identified. Nomasses or calculi are appreciated. Normal arterial and venous waveformsare demonstrated. Resistive indices within the renal parenchyma range from0.68-0.86. The urinary bladder is collapsed with a Berkowitz balloon present.. IMPRESSION: 1. Normal grayscale appearance of the renal transplant allograft. 2. Patent renal transplant vasculature and waveforms within normallimits. Report Verified by: Alberto Rodriguez MD at 10/27/2024 10:28 AM EDT us Sveta Judge MD IMG US ORDERABLES Final Result * US Duplex [id number] Comp (10/27/2024 9:51 AM EDT) Anatomical Region Laterality Modality Abdomen, Pelvis, Testes, Vascular Ultrasound 10/27/2024 9:51 AM EDT Impressions 10/27/2024 10:38 AM EDT IMPRESSION: RIGHT UPPER QUADRANT 1. Small area of parenchymal heterogeneity in the liver transplant near the falciform ligament fissure, possibly representing fat, small intraparenchymal hematoma, or hemostatic material. This can be reassessed on follow-up. The liver allograft otherwise appears normal. 2. Small volume of perihepatic free fluid. LIVER DOPPLER 1. Patent hepatic vasculature with normal directional flow. Waveforms within normal limits. Report Verified by: Alberto Rodriguez MD at 10/27/2024 10:38 AM EDT Narrative 10/27/2024 10:38 AM EDT EXAM: US ABDOMEN LIMITED EXAM: US DUPLEX [id number] COMPLETE INDICATION: Post-op liver transplant COMPARISON: None TECHNIQUE: Grayscale imaging was performed with attention to the right upper quadrant; color and spectral (duplex) Doppler analysis of the hepatic vasculature was also performed. FINDINGS: Liver: Transplant allograft is normal in echogenicity and echotexture. A small area of slightly heterogeneous echogenicity in the region of the falciform ligament fissure is present and spans approximately 3.2 x 2.6 x 4 cm. Biliary/CBD: 5 mm. No intra or extrahepatic ductal dilatation. Gallbladder: Surgically absent.. Pancreas: Obscured by overlying bowel gas. [place] right kidney: 12.5 cm in length. Normal parenchymal echogenicity. No hydronephrosis. Other: Trace free fluid adjacent to the liver. DOPPLER: Hepatic Veins: Duplex evaluation of the hepatic vasculature demonstrates normal flow in the right, middle and left hepatic veins. Portal Veins: The right, left and main portal vein demonstrate hepatopetal flow. Hepatic Arteries: Right, main and left hepatic arteries demonstrate normal waveforms. Resistive Indices Main hepatic artery: 0.76-0.81 Right hepatic artery: 0.84. Left hepatic artery: 0.74-0.77 Procedure Note Alberto Rodriguez MD - 10/27/2024 EXAM: US ABDOMEN LIMITED EXAM: US DUPLEX [id number] COMPLETE INDICATION: Post-op liver transplant COMPARISON: None TECHNIQUE: Grayscale imaging was performed with attention to the rightupper quadrant; color and spectral (duplex) Doppler analysis of thehepatic vasculature was also performed. FINDINGS: Liver: Transplant allograft is normal in echogenicity and echotexture. [place] area of slightly heterogeneous echogenicity in the region of thefalciform ligament fissure is present and spans approximately 3.2 x 2.6 x4 cm. Biliary/CBD: 5 mm. No intra or extrahepatic ductal dilatation. Gallbladder: Surgically absent.. Pancreas: Obscured by overlying bowel gas. [place] right kidney: 12.5 cm in length. Normal parenchymal echogenicity.No hydronephrosis. Other: Trace free fluid adjacent to the liver. DOPPLER: Hepatic Veins: Duplex evaluation of the hepatic vasculature demonstratesnormal flow in the right, middle and left hepatic veins. Portal Veins: The right, left and main portal vein demonstrate hepatopetalflow. Hepatic Arteries: Right, main and left hepatic arteries demonstrate normalwaveforms. Resistive Indices Main hepatic artery: 0.76-0.81 Right hepatic artery: 0.84. Left hepatic artery: 0.74-0.77 IMPRESSION: RIGHT UPPER QUADRANT 1. Small area of parenchymal heterogeneity in the liver transplant nearthe falciform ligament fissure, possibly representing fat, smallintraparenchymal hematoma, or hemostatic material. This can be reassessedon follow-up. The liver allograft otherwise appears normal. 2. Small volume of perihepatic free fluid. LIVER DOPPLER 1. Patent hepatic vasculature with normal directional flow. Waveformswithin normal limits. Report Verified by: Alberto Rodriguez MD at 10/27/2024 10:38 AM EDT us Sveta Judge MD [facility]LES Final Result * US Abdomen Limited (10/27/2024 9:51 AM EDT) Anatomical Region Laterality Modality Abdomen, Pelvis Ultrasound 10/27/2024 9:51 AM EDT Impressions 10/27/2024 10:38 AM EDT IMPRESSION: RIGHT UPPER QUADRANT 1. Small area of parenchymal heterogeneity in the liver transplant near the falciform ligament fissure, possibly representing fat, small intraparenchymal hematoma, or hemostatic material. This can be reassessed on follow-up. The liver allograft otherwise appears normal. 2. Small volume of perihepatic free fluid. LIVER DOPPLER 1. Patent hepatic vasculature with normal directional flow. Waveforms within normal limits. Report Verified by: Alberto Rodriguez MD at 10/27/2024 10:38 AM EDT Narrative 10/27/2024 10:38 AM EDT EXAM: US ABDOMEN LIMITED EXAM: US DUPLEX [id number] COMPLETE INDICATION: Post-op liver transplant COMPARISON: None TECHNIQUE: Grayscale imaging was performed with attention to the right upper quadrant; color and spectral (duplex) Doppler analysis of the hepatic vasculature was also performed. FINDINGS: Liver: Transplant allograft is normal in echogenicity and echotexture. A small area of slightly heterogeneous echogenicity in the region of the falciform ligament fissure is present and spans approximately 3.2 x 2.6 x 4 cm. Biliary/CBD: 5 mm. No intra or extrahepatic ductal dilatation. Gallbladder: Surgically absent.. Pancreas: Obscured by overlying bowel gas. [place] right kidney: 12.5 cm in length. Normal parenchymal echogenicity. No hydronephrosis. Other: Trace free fluid adjacent to the liver. DOPPLER: Hepatic Veins: Duplex evaluation of the hepatic vasculature demonstrates normal flow in the right, middle and left hepatic veins. Portal Veins: The right, left and main portal vein demonstrate hepatopetal flow. Hepatic Arteries: Right, main and left hepatic arteries demonstrate normal waveforms. Resistive Indices Main hepatic artery: 0.76-0.81 Right hepatic artery: 0.84. Left hepatic artery: 0.74-0.77 Procedure Note Alberto Rodriguez MD - 10/27/2024 EXAM: US ABDOMEN LIMITED EXAM: US DUPLEX [id number] COMPLETE INDICATION: Post-op liver transplant COMPARISON: None TECHNIQUE: Grayscale imaging was performed with attention to the rightupper quadrant; color and spectral (duplex) Doppler analysis of thehepatic vasculature was also performed. FINDINGS: Liver: Transplant allograft is normal in echogenicity and echotexture. [place] area of slightly heterogeneous echogenicity in the region of thefalciform ligament fissure is present and spans approximately 3.2 x 2.6 x4 cm. Biliary/CBD: 5 mm. No intra or extrahepatic ductal dilatation. Gallbladder: Surgically absent.. Pancreas: Obscured by overlying bowel gas. [place] right kidney: 12.5 cm in length. Normal parenchymal echogenicity.No hydronephrosis. Other: Trace free fluid adjacent to the liver. DOPPLER: Hepatic Veins: Duplex evaluation of the hepatic vasculature demonstratesnormal flow in the right, middle and left hepatic veins. Portal Veins: The right, left and main portal vein demonstrate hepatopetalflow. Hepatic Arteries: Right, main and left hepatic arteries demonstrate normalwaveforms. Resistive Indices Main hepatic artery: 0.76-0.81 Right hepatic artery: 0.84. Left hepatic artery: 0.74-0.77 IMPRESSION: RIGHT UPPER QUADRANT 1. Small area of parenchymal heterogeneity in the liver transplant nearthe falciform ligament fissure, possibly representing fat, smallintraparenchymal hematoma, or hemostatic material. This can be reassessedon follow-up. The liver allograft otherwise appears normal. 2. Small volume of perihepatic free fluid. LIVER DOPPLER 1. Patent hepatic vasculature with normal directional flow. Waveformswithin normal limits. Report Verified by: Alberto Rodriguez MD at 10/27/2024 10:38 AM EDT us Sveta uJdge MD IMG US ORDERABLES Final Result * CARISA Rhythm Strip - Scan (10/27/2024 9:25 AM EDT) us Scanning Uchhim SCAN DOCS - NO RESULTS Final Res ult * (ABNORMAL) POC Glucose Monitoring Device (10/27/2024 9:05 AM EDT) POC Glucose Monitoring Device 118(H) 70 - 100 mg/dL 10/27/2024 9:06 AM EDT [facility] Blood 10/27/2024 9:05 AM EDT 10/27/2024 9:06 AM EDT us Harvey Domínguez III, MD POINT OF CARE TEST ORDERABLES Final Result [facility] [address] [place] [address], [facility] * X-ray Portable Chest (10/27/2024 8:58 AM EDT) Anatomical Region Laterality Modality Chest Radiographic Rachel ging 10/27/2024 8:17 AM EDT Impressions 10/27/2024 9:22 AM EDT IMPRESSION: Endotracheal tube tip 7 cm above the sean. Consider advancement. Changed configuration of the PA catheter as detailed above, the tip projecting over the central mediastinum. Repositioning recommended. Bibasilar parenchymal opacities without significant change. No overt edema. Report Verified by: Chinedu Rodriges MD at 10/27/2024 9:22 AM EDT Narrative 10/27/2024 9:22 AM EDT EXAM: XR PORTABLE CHEST INDICATION: Difficulty breathing; Monitor pulm edema TECHNIQUE: 1 view of the chest. COMPARISON: 10/26/2024 FINDINGS: Medical Devices: Endotracheal tube tip over the upper intrathoracic trachea approximately 7 cm above the sean. Enteric suction catheter courses into the stomach, tip not included. PA catheter courses into the right atrium then abruptly changes direction and courses superiorly, tip over the central mediastinum, an interval change from one day previously. Heart and Mediastinum: Unchanged. Lungs and Pleura: Bibasilar parenchymal opacities, similar to prior. No new focal consolidation or pneumothorax Bones and Soft tissues: Unchanged. Procedure Note Chinedu Rodriges MD - 10/27/2024 EXAM: XR PORTABLE CHEST INDICATION: Difficulty breathing; Monitor pulm edema TECHNIQUE: 1 view of the chest. COMPARISON: 10/26/2024 FINDINGS: Medical Devices: Endotracheal tube tip over the upper intrathoracictrachea approximately 7 cm above the sean. Enteric suction cathetercourses into the stomach, tip not included. PA catheter courses into theright atrium then abruptly changes direction and courses superiorly, tipover the central mediastinum, an interval change from one daypreviously. Heart and Mediastinum: Unchanged. Lungs and Pleura: Bibasilar parenchymal opacities, similar to prior. Nonew focal consolidation or pneumothorax Bones and Soft tissues: Unchanged. IMPRESSION: Endotracheal tube tip 7 cm above the sean. Consider advancement. Changed configuration of the PA catheter as detailed above, the tipprojecting over the central mediastinum. Repositioning recommended. Bibasilar parenchymal opacities without significant change. No overtedema. Report Verified by: Chinedu Rodriges MD at 10/27/2024 9:22 AM EDT John Moreno MD IMG DIAGNOSTIC IMAGING ORDER PAL Final Result * (ABNORMAL) Protime-INR, STAT (10/27/2024 8:16 AM EDT) Protime 16.2(H) 12.1 - 15.1 seconds 10/27/2024 8:35 AM EDT [facility] INR 1.2(H) 0.9 - 1.1 10/27/2024 8:35 AM EDT [facility] Comment: RECOMMENDED THERAPEUTIC RANGES USING INR : Stable oral anticoagulant therapy: 2.0 - 3.0 Mechanical prosthetic heart valve: 2.5 - 3.5 Recurrent acute myocardial infarction: 2.5 - 3.5 Plasma 10/27/2024 8:16 AM EDT 10/27/2024 8:20 AM EDT John Moreno MD LAB BLOOD ORDERABLES Final R esult Performing Organization Address City/[facility]/ZIP Co de Phone Number [facility] [address] * Magnesium (10/27/2024 8:00 AM EDT) Pathologist [facility] Magnesium 1.8 1.5 - 2.5 mg/dL 10/27/2024 10:50 AM EDT [facility] Plasma 10/27/2024 8:00 AM EDT 10/27/2024 10:31 AM EDT Kemar Sahni MD LAB BLOOD ORDERABLES Final Result [facility] [address] * (ABNORMAL) Renal Function Panel w/EGFR (10/27/2024 8:00 AM EDT) Sodium 142 133 - 146 mmol/L 10/27/2024 10:18 AM EDT [facility] Potassium 3.0(L) 3.5 - 5.3 mmol/L 10/27/2024 10:18 AM EDT [facility] Chloride 109 98 - 110 mmol/L 10/27/2024 10:18 AM EDT [facility] CO2 21 21 - 33 mmol/L 10/27/2024 10:18 AM EDT [facility] Anion Gap 12 3 - 16 mmol/L 10/27/2024 10:18 AM EDT [facility] BUN 59(H) 7 - 25 mg/dL 10/27/2024 10:18 AM EDT [facility] Creatinine 2.54(H) 0.60 - 1.30 mg/dL 10/27/2024 10:18 AM EDT [facility] Glucose 111(H) 70 - 100 mg/dL 10/27/2024 10:18 AM EDT [facility] Calcium 9.1 8.6 - 10.3 mg/dL 10/27/2024 10:18 AM EDT [facility] Phosphorus 5.5(H) 2.1 - 4.7 mg/dL 10/27/2024 10:18 AM EDT [facility] Albumin 3.0(L) 3.5 - 5.7 g/dL 10/27/2024 10:18 AM EDT [facility] Osmolality, Calculated 311(H) 278 - 305 mOsm/kg 10/27/2024 10:18 AM EDT [facility] EGFR 32 10/27/2024 10:18 AM T [facility] Comment:As of 2021, the estimated [...] Disease. Am J Kidney Dis. 2020. Plasma 10/27/2024 8:00 AM EDT 10/27/2024 9:58 AM EDT us eKmar Sahni MD LAB BLOOD ORDERABLES Final Result [facility] [address] [place] [address], [facility] * (ABNORMAL) Hepatic Function Panel, STAT (10/27/2024 8:00 AM EDT) Total Bilirubin 1.3 0.0 - 1.5 mg/dL 10/27/2024 8:51 AM EDT [facility] Bilirubin, Direct 0.93(H) 0.00 - 0.40 mg/dL 10/27/2024 8:51 AM EDT [facility] AST 88(H) 13 - 39 U/L 10/27/2024 8:51 AM EDT [facility] ALT 149(H) 7 - 52 U/L 10/27/2024 8:51 AM EDT [facility] Alkaline Phosphatase 26(L) 36 - 125 U/L 10/27/2024 8:51 AM EDT [facility] Total Protein 4.0(L) 6.4 - 8.9 g/dL 10/27/2024 8:51 AM EDT [facility] Albumin 3.0(L) 3.5 - 5.7 g/dL 10/27/2024 8:51 AM EDT [facility] Bilirubin, Indirect 0.37 0.00 - 1.10 mg/dL 10/27/2024 8:51 AM EDT [facility] Plasma 10/27/2024 8:00 AM EDT 10/27/2024 8:20 AM EDT us Harvey Domínguez III, MD LAB BLOOD ORDERABLE S Final Result [facility] [address] [place] [address], [facility] * (ABNORMAL) Lactic Acid, STAT (10/27/2024 8:00 AM EDT) Lactate 0.4(L) 0.5 - 2.2 mmol/L 10/27/2024 8:43 AM EDT [facility] Plasma 10/27/2024 8:00 AM EDT 10/27/2024 8:20 AM EDT us Harvey Domínguez III, MD LAB BLOOD ORDERABLE S Final Result [facility] [address] [place] [address], [facility] * (ABNORMAL) Blood Gas, Arterial, STAT (10/27/2024 8:00 AM EDT) O2 Sat, Arterial 100 10/27/2024 8:23 AM EDT [facility] pH, Arterial 7.36 7.35 - 7.45 10/27/2024 8:23 AM EDT [facility] pCO2, Arterial 37 35 - 45 mm Hg 10/27/2024 8:23 AM EDT [facility] pO2, Arterial 245(H) 80 - 100 mm Hg 10/27/2024 8:23 AM EDT [facility] HCO3, Arterial 22 22 - 26 mmol/L 10/27/2024 8:23 AM EDT [facility] CO2 Content,Arteri al 22(L) 23 - 27 mmol/L 10/27/2024 8:23 AM EDT [facility] Base Excess, Arterial -4.2(L) -2.0 - 3.0 mmol/L 10/27/2024 8:23 AM EDT [facility] %HBO2, Arterial 96.5 95.0 - 98.0 % 10/27/2024 8:23 AM EDT [facility] Carboxyhemoglo bin, Arterial 2.2 % 10/27/2024 8:23 AM EDT [facility] Comment: CARBOXYHEMOGLOBIN (CO) REFERENCE RANGES: Non-Smokers: <2 % Smokers: <8 % TOXIC: >20 % Methemoglobin, Arterial 1.2 0.0 - 1.5 % 10/27/2024 8:23 AM EDT [facility] Reduced hemoglobin, Arterial 0.0 0.0 - 5.0 % 10/27/2024 8:23 AM EDT [facility] Blood, Arterial 10/27/2024 8 :00 AM EDT 10/27/2024 8:19 AM EDT Narrative [facility] - 10/27/2024 8:23 AM EDT Specimen is beyond 15 minutes from time of collection. Results may be compromised. Review results critically. Kemar Sahni MD LAB BLOOD ORDERABLES Final Result Performing Organization Address City/[facility]/ZIP Co de Phone Number [facility] [address] * (ABNORMAL) TEG-Bypass/ECMO/Liver HN (Factor function, Platelet/Fibrin Clot Strength w/Clot Breakdown, Heparinase In All Channels) (10/27/2024 8:00 AM EDT) [facility] Citrated Kaolin Reaction Time (TEGECMOLIVER) 7.8 4.6 - 9.1 minutes 10/27/2024 9:39 AM EDT [facility] Citrated Kaolin W/Heparinase Reaction Time (TEGECMOLIVER) 8.0 4.3 - 8.3 minutes 10/27/2024 9:39 AM EDT [facility] Citrated Kaolin Maximum Amplitude (TEGECMOLIVER) 52.7 52.0 - 69.0 mm 10/27/2024 9:39 AM EDT [facility] Citrated Functional Fibrinogen W/Heparinase Maximum Amplitude(TEGEC MOLIVER) 19.0 15.0 - 34.0 mm 10/27/2024 9:39 AM EDT [facility] Citrated Rapid Teg W/Heparinase Maximum Amplitude (TEGECMOLIVER) 49.5(L) 53.0 - 69.0 mm 10/27/2024 9:39 AM EDT [facility] Citrated Kaolin w/Heparinase Percent Lysis (TEGECMOLIVER) 0.0 0.0 - 3.2 % 10/27/2024 9:39 AM EDT [facility] Whole Blood (Citrate) 10/27/2024 8:00 AM EDT 10/27/2024 8:19 AM EDT Kemar Sahni MD LAB BLOOD ORDERABLES Final Result [facility] [address] * (ABNORMAL) Katie-Watkins virus VCA IgG Antibody (10/27/2024 8:00 AM EDT) EBV VCA IgG Positive( A) Negative 10/27/2024 11:30 AM EDT [facility] Comment:Presence of detectab le VCA IgG antibodies. 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 EBV IGG NUM 314.00(H) 0.00 - 17.99 U/mL 10/27/2024 11:30 AM EDT [facility] Serum 10/27/2024 8:00 AM EDT 10/27/2024 8:20 AM EDT Kemar Sahni MD LAB BLOOD ORDERABLES Final Result Performing Organization Address [facility] Co de Phone Number [facility] [address] [facility]. [address] * Hemoglobin A1c (10/27/2024 8:00 AM EDT) Hemoglobin A1C 5.0 4.0 - 5.6 % 10/27/2024 11:12 AM EDT [facility] Comment: Hemoglobin A1c Interpretation Guidelines: [...] and other individual patient considerations. Whole Blood 10/27/2024 8:00 AM EDT 10/27/2024 8:20 AM EDT Kemar Sahni MD LAB BLOOD ORDERABLES Final Result Performing Organization Address [facility] Co de Phone Number [facility] [address] * (ABNORMAL) POC Glucose Monitoring Device (10/27/2024 7:59 AM EDT) POC Glucose Monitoring Device 113(H) 70 - 100 mg/dL 10/27/2024 7:59 AM EDT [facility] Blood 10/27/2024 7:59 AM EDT 10/27/2024 7:59 AM EDT us Harvey Domínguez III, MD POINT OF CARE TEST ORDERABLES Final Result [facility] [address] * X-ray Abdomen AP view (10/27/2024 7:47 AM EDT) Anatomical Region Laterality Modality Abdomen Radiographic Rachel ging 10/27/2024 6:48 AM EDT Impressions 10/27/2024 7:49 AM EDT FINDINGS/IMPRESSION: No unexpected retained radiopaque surgical instrument. Enteric suction catheter sidehole projects over the gastric antrum and tip projects over the peripyloric region. Right upper quadrant and mid abdominal surgical drains. Right lower quadrant ureteral stent. Embolization material and surgical clips in the left upper quadrant and mid abdomen. Surgical jerry project over the left hip and left chest wall. Findings communicated to Michela Szymanski RN via telephone by Ag Garcia MD on 10/27/2024 7:20 AM EDT. Approved by Ag Garcia MD on 10/27/2024 7:48 AM EDT I have personally reviewed the images and I agree with this report. Report Verified by: Lexx Hansen MD at 10/27/2024 7:49 AM EDT Narrative 10/27/2024 7:49 AM EDT EXAM: XR ABDOMEN AP VIEW ONLY INDICATION: Per protocol. Normal instrument count. TECHNIQUE: AP views of the abdomen. COMPARISON: MR abdomen 10/13/2024 Procedure Note Lexx Hansen MD - 10/27/2024 EXAM: XR ABDOMEN AP VIEW ONLY INDICATION: Per protocol. Normal instrument count. TECHNIQUE: AP views of the abdomen. COMPARISON: MR abdomen 10/13/2024 FINDINGS/IMPRESSION: No unexpected retained radiopaque surgical instrument. Enteric suction catheter sidehole projects over the gastric antrum and tipprojects over the peripyloric region. Right upper quadrant and midabdominal surgical drains. Right lower quadrant ureteral stent.Embolization material and surgical clips in the left upper quadrant andmid abdomen. Surgical jerry project over the left hip and left chestwall. Findings communicated to Michela Szymanski RN via telephone by Ag Garcia MD on 10/27/2024 7:20 AM EDT. Approved by Ag Garcia MD on 10/27/2024 7:48 AM EDT I have personally reviewed the images and I agree with this report. Report Verified by: Lexx Hansen MD at 10/27/2024 7:49 AM EDT Harvey Domínguez III, MD IMG DIAGNOSTIC IMAG ING ORDERABLES Final Result * Transfuse RBC (10/27/2024 6:29 AM EDT) Ben Blake MD NURSING TREATMENT ORDERABLES - BLOOD ADMIN Final Result * Prepare Cryoprecipitate, 1 Units (10/27/2024 6:16 AM EDT) [facility] Signature Product Code J5495T37 HCLL Unit Number [id number] HCLL Dispense Status Presumed Transfused_PT HCLL Blood Expiration Date HCLL Coding System [id number] HCLL Product Code Z6223L55 HCLL Unit Number [id number] HCLL Dispense Status Presumed Transfused_PT HCLL Blood Expiration Date [id number] HCLL Coding System [id number] HCLL Blood Bank Product John Pina MD BLOOD BANK PRODUCT ORDERABLES F inal Result HCLL * Prepare Platelets, leukoreduced, 1 Units (10/27/2024 6:16 AM EDT) Product Code S0691Y32 HCLL Unit Number [id number] HCLL Dispense Status Presumed Transfused_PT HCLL Blood Expiration Date [id number] HCLL Coding System [id number] HCLL Blood Bank Product Eber Quinones MD BLOOD BANK PRODUCT ORDER PAL Final Result Performing Organization Address [facility] de Phone Number HCLL * Prepare Cryoprecipitate, 1 Units (10/27/2024 6:16 AM EDT) Product Code Z0362E15 HCLL Unit Number [id number] HCLL Dispense Status Presumed Transfused_PT HCLL Blood Expiration Date HCLL Coding System [id number] HCLL Product Code L3778F19 HCLL Unit Number [id number] HCLL Dispense Status Presumed Transfused_PT HCLL Blood Expiration Date 886763539731 HCLL Coding System [id number] HCLL Blood Bank Product Eber Quinones MD BLOOD BANK PRODUCT ORDER PAL Final Result Performing Organization Address [facility] de Phone Number HCLL * Prepare Fresh Frozen Plasma, 10 Units (10/27/2024 6:16 AM EDT) Product Code S6802L29 HCLL Unit Number [id number] HCLL Dispense Status Presumed Transfused_PT HCLL Blood Expiration Date HCLL Coding System [id number] HCLL Product Code X0142T85 HCLL Unit Number [id number] HCLL Dispense Status Presumed Transfused_PT HCLL Blood Expiration Date 679749069638 HCLL Coding System IUYG045 HCLL Product Code T4562R36 HCLL Unit Number [id number] HCLL Dispense Status Presumed Transfused_PT HCLL Blood Expiration Date 466198190207 HCLL Coding System PECM791 HCLL Product Code V2173V71 HCLL Unit Number [id number] HCLL Dispense Status Presumed Transfused_PT HCLL Blood Expiration Date 766305465993 HCLL Coding System DHBM317 HCLL Product Code T5274W55 HCLL Unit Number [id number] HCLL Dispense Status Released from Crossmatch_RE HCLL Blood Expiration Date 176077696458 HCLL Coding System YEYN313 HCLL Product Code X4187C75 HCLL Unit Number [id number] HCLL Dispense Status Released from Crossmatch_RE HCLL Blood Expiration Date HCLL Coding System ATXS247 HCLL Product Code H0861W28 HCLL Unit Number [id number] HCLL Dispense Status Presumed Transfused_PT HCLL Blood Expiration Date HCLL Coding System PQSV668 HCLL Product Code A7751C24 HCLL Unit Number [id number] HCLL Dispense Status Presumed Transfused_PT HCLL Blood Expiration Date 275410763381 HCLL Coding System OPAU861 HCLL Product Code G5502P94 HCLL Unit Number [id number] HCLL Dispense Status Presumed Transfused_PT HCLL Blood Expiration Date 660069744113 HCLL Coding System TSVC462 HCLL Product Code Q1036A66 HCLL Unit Number [id number] HCLL Dispense Status Presumed Transfused_PT HCLL Blood Expiration Date 005562734461 HCLL Coding System YZVA175 HCLL Blood Bank Product us Leandra Og MD BLOOD BANK PRODUCT ORD ERABLES Final Result HCLL * Prepare Platelets, leukoreduced, 1 Units (10/27/2024 6:16 AM EDT) Product Code F8975E83 HCLL Unit Number [id number] HCLL Dispense Status Presumed Transfused_PT HCLL Blood Expiration Date 181207566832 HCLL Coding System LZTC635 HCLL Blood Bank Product Ben Blake MD BLOOD BANK PRODUCT ORDERABLES Final Result HCLL * Prepare Fresh Frozen Plasma (10/27/2024 6:15 AM EDT) Product Code Q4832O15 HCLL Unit Number [id number] HCLL Dispense Status Presumed Transfused_PT HCLL Blood Expiration Date HCLL Coding System RWKX143 HCLL Product Code N2007Z64 HCLL Unit Number [id number] HCLL Dispense Status Released from Crossmatch_RE HCLL Blood Expiration Date HCLL Coding System JUIV227 HCLL Product Code H5431I77 HCLL Unit Number [id number] HCLL Dispense Status Presumed Transfused_PT HCLL Blood Expiration Date HCLL Coding System OVUV023 HCLL Product Code K3556J86 HCLL Unit Number [id number] HCLL Dispense Status Presumed Transfused_PT HCLL Blood Expiration Date HCLL Coding System MLTW246 HCLL Product Code U9838Y94 HCLL Unit Number [id number] HCLL Dispense Status Released from Crossmatch_RE HCLL Blood Expiration Date HCLL Coding System XFOF570 HCLL Attending Provider Unknown BLOOD BANK PRODUCT OR DERABLES Final Result HCLL * Prepare RBC, leukoreduced (10/27/2024 6:15 AM EDT) Product Code G3624M50 HCLL Unit Number [id number] HCLL Dispense Status Presumed Transfused_PT HCLL Blood Expiration Date [id number] HCLL Coding System [id number] HCLL Product Code R3366C81 HCLL Unit Number [id number] HCLL Dispense Status Released from Crossmatch_RE HCLL Blood Expiration Date HCLL Coding System [id number] HCLL Product Code F8382L21 HCLL Unit Number [id number] HCLL Dispense Status Released from Crossmatch_RE HCLL Blood Expiration Date [id number] HCLL Coding System [id number] HCLL Product Code P6359O07 HCLL Unit Number [id number] HCLL Dispense Status Released from Crossmatch_RE HCLL Blood Expiration Date [id number] HCLL Coding System KONH395 HCLL Product Code D3419P78 HCLL Unit Number [id number] HCLL Dispense Status Released from Crossmatch_RE HCLL Blood Expiration Date [id number] HCLL Coding System [id number] HCLL us Attending Provider Unknown BLOOD BANK PRODUCT OR DERABLES Final Result HCLL * Prepare RBC, leukoreduced, 10 Units (10/27/2024 6:15 AM EDT) Product Code H5755F46 HCLL Unit Number [id number] HCLL Dispense Status Presumed Transfused_PT HCLL Blood Expiration Date HCLL Coding System PYNV370 HCLL Product Code S6944L84 HCLL Unit Number [id number] HCLL Dispense Status Presumed Transfused_PT HCLL Blood Expiration Date [id number] HCLL Coding System INFI288 HCLL Product Code N6381S69 HCLL Unit Number [id number] HCLL Dispense Status Presumed Transfused_PT HCLL Blood Expiration Date HCLL Coding System WYNO554 HCLL Product Code H3744D33 HCLL Unit Number [id number] HCLL Dispense Status Presumed Transfused_PT HCLL Blood Expiration Date HCLL Coding System ZYQV031 HCLL Product Code U3869W85 HCLL Unit Number [id number] HCLL Dispense Status Presumed Transfused_PT HCLL Blood Expiration Date HCLL Coding System ITLY407 HCLL Product Code N7710M15 HCLL Unit Number [id number] HCLL Dispense Status Presumed Transfused_PT HCLL Blood Expiration Date HCLL Coding System QMTN657 HCLL Product Code C7820F79 HCLL Unit Number [id number] HCLL Dispense Status Presumed Transfused_PT HCLL Blood Expiration Date HCLL Coding System HMGI368 HCLL Product Code I2607M78 HCLL Unit Number [id number] HCLL Dispense Status Presumed Transfused_PT HCLL Blood Expiration Date HCLL Coding System HVSB543 HCLL Product Code Q7857D01 HCLL Unit Number [id number] HCLL Dispense Status Presumed Transfused_PT HCLL Blood Expiration Date HCLL Coding System FDLV052 HCLL Product Code Y7517Y31 HCLL Unit Number [id number] HCLL Dispense Status Presumed Transfused_PT HCLL Blood Expiration Date [id number] HCLL Coding System HFMW599 HCLL Blood Bank Product Leandra Og MD BLOOD BANK PRODUCT ORD ERABLES Final Result HCLL * Transfuse Platelets (10/27/2024 6:09 AM EDT) Ben Blake MD NURSING TREATMENT ORDERABLES - BLOOD ADMIN Final Result * (ABNORMAL) Arterial Blood Gas Panel (10/27/2024 6:09 AM EDT) O2Sat (ABGP) 100 10/27/2024 6:17 AM EDT [facility] pH (ABGP) 7.30(L) 7.35 - 7.45 10/27/2024 6:17 AM EDT [facility] PCO2 (ABGP) 41 35 - 45 mm Hg 10/27/2024 6:17 AM EDT [facility] PO2 (ABGP) 192(H) 80 - 100 mm Hg 10/27/2024 6:17 AM EDT [facility] HCO3 (ABGP) 21(L) 22 - 26 mmol/L 10/27/2024 6:17 AM EDT [facility] CO2 Content (ABGP) 22(L) 23 - 27 mmol/L 10/27/2024 6:17 AM T [facility] Base Excess (ABGP) -5.7(L) -2.0 - 3.0 mmol/L 10/27/2024 6:17 AM T [facility] Sodium (ABGP) 138 136 - 146 mEq/L 10/27/2024 6:17 AM [facility] Potassium (ABGP) 3.3(L) 3.5 - 5.0 mEq/L 10/27/2024 6:17 AM [facility] Comment:In the event of in-v itro hemolysis, potassium results may be falsely elevated. Always interpret lab results in conjunction with clinical findings. If hemolysis is suspected, a serum sample may be collected for repeat assessment of potassium. Calcium, Free (ABGP) 5.28 4.50 - 5.30 mg/dL 10/27/2024 6:17 AM [facility] Glucose (ABGP) 112(H) 70 - 100 mg/dL 10/27/2024 6:17 AM [facility] Comment:There is interferenc e with whole blood glucose results on this method when Hematocrit is <25% or >60%. HCT (ABGP) 20.0(L) 40.0 - 52.0 % 10/27/2024 6:17 AM [facility] HGB (ABGP) 6.5(L) 14.0 - 18.0 g/dL 10/27/2024 6:17 AM [facility] %HBO2 (ABGP) 96.8 95.0 - 98.0 % 10/27/2024 6:17 AM [facility] Carboxyhgb (ABGP) 2.1 % 025 6:17 AM [facility] Comment: CARBOXYHEMOGLOBIN (CO) REFERENCE RANGES: Non-Smokers: <2 % Smokers: <8 % TOXIC: >20 % Methemoglobin (ABGP) 1.0 0.0 - 1.5 % 10/27/2024 6:17 AM [facility] Reduced Hemoglobin (ABGP) 0.2 0.0 - 5.0 % 10/27/2024 6:17 AM [facility] Lactic Acid (ABGP) 0.4(L) 0.5 - 1.6 mmol/L 10/27/2024 6:17 AM EDT [facility] Blood, Arterial 10/27/2024 6 :09 AM EDT 10/27/2024 6:14 AM EDT us Ben Blake MD LAB BLOOD ORDERABLES Final Re sult Performing Organization Address [facility]/ZIP Co de Phone Number [facility] [address] [facility]. [address] * Transfuse Fresh Frozen Plasma (10/27/2024 5:49 AM EDT) us Ben Blake MD NURSING TREATMENT ORDERABLES - BLOOD ADMIN Final Result * Transfuse Cryoprecipitate (10/27/2024 4:56 AM EDT) Result Tiburcio Blake MD NURSING TREATMENT ORDERABLES - BLOOD ADMIN Final Result * Transfuse Cryoprecipitate (10/27/2024 4:49 AM EDT) us Ben Blake MD NURSING TREATMENT ORDERABLES - BLOOD ADMIN Final Result * (ABNORMAL) POC Glucose Monitoring Device (10/27/2024 4:46 AM EDT) [facility] POC Glucose Monitoring Device 124(H) 70 - 100 mg/dL 10/27/2024 4:47 AM EDT [facility] Blood 10/27/2024 4:46 AM EDT 10/27/2024 4:47 AM EDT Harvey Domínguez III, MD POINT OF CARE TEST ORDERABLES Final Result Performing Organization Address [facility]/ZIP Co de Phone Number [facility] [address] [facility]. [address] * Transfuse Platelets (10/27/2024 4:24 AM EDT) us Ben Blake MD NURSING TREATMENT ORDERABLES - BLOOD ADMIN Final Result * Transfuse Fresh Frozen Plasma (10/27/2024 4:07 AM EDT) us Ben Blake MD NURSING TREATMENT ORDERABLES - BLOOD ADMIN Final Result * Transfuse RBC (10/27/2024 3:52 AM EDT) Ben Blake MD NURSING TREATMENT ORDERABLES - BLOOD ADMIN Final Result * (ABNORMAL) Arterial Blood Gas Panel (10/27/2024 3:07 AM EDT) O2Sat (ABGP) 100 10/27/2024 3:21 AM EDT [facility] pH (ABGP) 7.32(L) 7.35 - 7.45 10/27/2024 3:21 AM EDT [facility] PCO2 (ABGP) 38 35 - 45 mm Hg 10/27/2024 3:21 AM EDT [facility] PO2 (ABGP) 176(H) 80 - 100 mm Hg 10/27/2024 3:21 AM EDT [facility] HCO3 (ABGP) 20(L) 22 - 26 mmol/L 10/27/2024 3:21 AM EDT [facility] CO2 Content (ABGP) 21(L) 23 - 27 mmol/L 10/27/2024 3:21 AM EDT [facility] Base Excess (ABGP) -6.0(L) -2.0 - 3.0 mmol/L 10/27/2024 3:21 AM EDT [facility] Sodium (ABGP) 138 136 - 146 mEq/L 10/27/2024 3:21 AM EDT [facility] Potassium (ABGP) 3.0(L) 3.5 - 5.0 mEq/L 10/27/2024 3:21 AM EDT [facility] Comment:In the event of in-v itro hemolysis, potassium results may be falsely elevated. Always interpret lab results in conjunction with clinical findings. If hemolysis is suspected, a serum sample may be collected for repeat assessment of potassium. Calcium, Free (ABGP) 5.28 4.50 - 5.30 mg/dL 10/27/2024 3:21 AM EDT [facility] Glucose (ABGP) 108(H) 70 - 100 mg/dL 10/27/2024 3:21 AM EDT [facility] Comment:There is interferenc e with whole blood glucose results on this method when Hematocrit is <25% or >60%. HCT (ABGP) 22.0(L) 40.0 - 52.0 % 10/27/2024 3:21 AM EDT [facility] HGB (ABGP) 7.3(L) 14.0 - 18.0 g/dL 10/27/2024 3:21 AM EDT [facility] %HBO2 (ABGP) 97.3 95.0 - 98.0 % 10/27/2024 3:21 AM EDT [facility] Carboxyhgb (ABGP) 1.9 % 025 3:21 AM EDT [facility] Comment: CARBOXYHEMOGLOBIN (CO) REFERENCE RANGES: Non-Smokers: <2 % Smokers: <8 % TOXIC: >20 % Methemoglobin (ABGP) 0.8 0.0 - 1.5 % 10/27/2024 3:21 AM EDT [facility] Reduced Hemoglobin (ABGP) 0.0 0.0 - 5.0 % 10/27/2024 3:21 AM EDT [facility] Lactic Acid (ABGP) 0.3(L) 0.5 - 1.6 mmol/L 10/27/2024 3:21 AM EDT [facility] Blood, Arterial 10/27/2024 3 :07 AM EDT 10/27/2024 3:14 AM EDT Ben Blake MD LAB BLOOD ORDERABLES Final Re sult Performing Organization Address City/State/[facility] Co de Phone Number [facility] [address] * Surgical Pathology Exam (10/27/2024 2:38 AM EDT) Tissue LEFT KIDNEY STRUCTURE / Unknown 10/27/2024 2:38 AM EDT Narrative [facility] - 10/27/2024 12:00 AM EDT CASE: [id number] PATIENT: BLAIR GILBERT Clinical History: Transplant kidney with bile duct reconstruction Pre-Operative Diagnosis: Acute kidney injury superimposed on CKD Post-Operative Diagnosis: None Given Specimen(s) Submitted: A. baseline renal biopsy ; B. right lobe liver biopsy; C. left lobe liver biopsy CPT Code(s): 44041 X 1; 65908 X 2; 02199 X 4 Additional Information: FINAL DIAGNOSIS: A. Kidney, left, biopsy: - Results will be reported in an addendum. B. Liver, right lobe, biopsy: - Mild nonspecific chronic inflammation within portal tracts. - Mild ischemia reperfusion injury. - No significant fibrosis on trichrome. - Patchy foamy degeneration. C. Liver, left lobe, biopsy: - Mild nonspecific chronic inflammation within portal tracts. - Mild ischemia reperfusion injury. - No significant fibrosis on trichrome. - Patchy foamy degeneration. DS/vc Gross Description: A. Received in formalin, labeled with the patient's name Blair Gilbert and baseline renal biopsy , is a 1.3 x 0.5 x 0.4 cm wedge of apparent renal parenchyma, which is entirely submitted in cassette [id number] A1. (NAA Mckeon/rr) B. Received in formalin, labeled with the patient's name Blair Gilbert and right lobe liver biopsy are two green-brown tissue cores measuring 1.8 and 2.0 cm in length, each with a diameter of 0.1 cm, which are entirely submitted between blue biopsy sponges in cassette [id number]-B2. (NAA Mckeon/ns) C. Received in formalin, labeled with the patient's name Blair Gilbert and left lobe liver biopsy are two green-georges tissue cores measuring 1.2 and 1.4 cm in length, each with a diameter of 0.1 cm, which are entirely submitted between blue biopsy sponges in cassette [id number] C1-C2. (NAA Mckeon/ns) Microscopic Description: I, the attending pathologist, have personally reviewed all prosector/resident work and pathology slides to determine final diagnosis. Control Materials Reacted Appropriately. Final Diagnosis performed by CLARE FALL MD Pathologist Electronically signed 10/31/2024 01:07:09 PM The Pathologist signing this report is located at [facility], [address] [place] [address], [id number], , CLIA ID: [id number] ADDENDUM: A. Kidney, allograft, baseline, wedge biopsy: - Mild acute tubular injury. - Focal global glomerulosclerosis (7 of 73). - Mild interstitial fibrosis and tubular atrophy (20%). - Mild arteriosclerosis. - Mild hyaline arteriolosclerosis. The above diagnoses are supported by microscopic examination of HE-, PAS-, and Marcos trichrome-stained slides. Final diagnosis for part A performed by Chelsy Allen MD. Addendum #1 performed by Chelsy Allen M.D. Pathologist Electronically signed 11/04/2024 10:28:52 AM The Pathologist signing this report is located at [facility], [address] [place] [address], [id number], , CLIA ID: [id number] Kemar Sahni MD PATHOLOGY/CYTOLOGY ORDERABL ES Edited Result - Final Performing Organization Address [facility]/ZIP Co de Phone Number [facility] * Anaerobic culture (10/27/2024 2:15 AM EDT) Culture Result No Anaerobes Isolated in 5 Days [facility] Fluid SPECIMEN FROM KIDNEY / Unknown 10/27/2024 2:15 AM EDT 10/27/2024 4:24 AM EDT Narrative [facility] - 10/31/2024 11:43 AM EDT 1) perfusate Harvey Domínguez III, MD MICROBIOLOGY - GENE RAL ORDERABLES Final Result Performing Organization Address [facility]/ZIP Co de Phone Number [address] * Fungus culture (10/27/2024 2:15 AM EDT) Culture Result No Fungus Isolated At 4 Weeks [facility] Fluid SPECIMEN FROM KIDNEY / Unknown 10/27/2024 2:15 AM EDT 10/27/2024 4:24 AM EDT Narrative [facility] - 11/24/2024 7:52 AM EDT 1) perfusate Harvey Domínguez III, MD MICROBIOLOGY - GENE RAL ORDERABLES Final Result Performing Organization Address [facility] de Phone Number [facility] [address] [facility]. [address] * Routine Culture plus Stain (10/27/2024 2:15 AM EDT) Gram Stain Result No Polymorphonuclear Leukocytes Seen [facility] Gram Stain Result No Organisms Seen; [facility] Culture Result No Growth After 3 Days [facility] Fluid SPECIMEN FROM KIDNEY / Unknown 10/27/2024 2:15 AM EDT 10/27/2024 4:24 AM EDT Narrative [facility] - 10/30/2024 9:26 AM EDT 1) perfusate Harvey Domínguez III, MD MICROBIOLOGY - GENE RAL ORDERABLES Final Result Performing Organization Address [facility] de Phone Number [facility] [address] [facility]. [address] * Transfuse Platelets Transfusion Rate: Per dept routine (10/27/2024 1:52 AM EDT) John Pina MD NURSING TREATMENT ORDERABLES - BLOOD ADMIN Final Result Performing Organization Address [facility] de Phone Number EXTERNAL * Transfuse Platelets Transfusion Rate: Per dept routine, 1 Units (10/27/2024 1:52 AM EDT) John Pina MD NURSING TREATMENT ORDERABLES - BLOOD ADMIN Final Result Performing Organization Address [facility] de Phone Number EXTERNAL * (ABNORMAL) TEG-Standard Global Hemostasis (Rapid TEG with Heparin Effect, Contains a Baseline TEG) (10/27/2024 1:51 AM EDT) Citrated Kaolin Reaction Time (TEGHEPARINASE) 10.6(H) 4.6 - 9.1 minutes 10/27/2024 2:44 AM EDT [facility] Citrated Rapid Teg Maximum Amplitude (TEGHEPARINASE) 42.3(L) 52.0 - 70.0 mm 10/27/2024 2:44 AM EDT [facility] Citrated Functional Fibrinogen Maximum Amplitude (TEGHEPARINASE) 15.0 15.0 - 32.0 mm 10/27/2024 2:44 AM EDT [facility] Citrated Kaolin W/Heparinase Reaction Time (TEGHEPARINASE) 10.5(H) 4.3 - 8.3 minutes 10/27/2024 2:44 AM EDT [facility] Citrated Kaolin K-Time (TEGHEPARINASE) 2.9(A) 0.8 - 2.1 minutes 10/27/2024 2:44 AM EDT [facility] Citrated Kaolin Angle (TEGHEPARINASE) 60.4(A) 63.0 - 78.0 degrees 10/27/2024 2:44 AM EDT [facility] Citrated Kaolin Maximum Amplitude (TEGHEPARINASE) 42.9(L) 52.0 - 69.0 mm 10/27/2024 2:44 AM EDT [facility] Citrated Functional Fibrinogen- Fibrinogen Level (TEGHEPARINASE) 273.7(L) 278.0 - 581.0 mg/dL 10/27/2024 2:44 AM EDT [facility] Whole Blood (Citrate) 10/27/2024 1:51 AM EDT 10/27/2024 2:03 AM EDT us John Pina MD LAB BLOOD ORDERABLES Final Resu lt [facility] [address] [place] [address], [facility] * (ABNORMAL) POC Glucose Monitoring Device (10/27/2024 1:50 AM EDT) Pathologist [facility] POC Glucose Monitoring Device 121(H) 70 - 100 mg/dL 10/27/2024 1:51 AM EDT [facility] Blood 10/27/2024 1:50 AM EDT 10/27/2024 1:51 AM EDT us Harvey Domínguez III, MD POINT OF CARE TEST ORDERABLES Final Result Performing Organization Address [facility] de Phone Number [facility] [address] [facility]. [address] * Transfuse Cryoprecipitate Transfusion Rate: Per dept routine (10/27/2024 1:25 AM EDT) us John Pina MD NURSING TREATMENT ORDERABLES - BLOOD ADMIN Final Result Performing Organization Address [facility] de Phone Number EXTERNAL * Transfuse Cryoprecipitate Transfusion Rate: Per dept routine, 1 Units (10/27/2024 1:25 AM EDT) us John Pina MD NURSING TREATMENT ORDERABLES - BLOOD ADMIN Final Result Performing Organization Address [facility] de Phone Number EXTERNAL * (ABNORMAL) POC Glucose Monitoring Device (10/27/2024 1:21 AM EDT) [facility] POC Glucose Monitoring Device 123(H) 70 - 100 mg/dL 10/27/2024 1:22 AM EDT [facility] Blood 10/27/2024 1:21 AM EDT 10/27/2024 1:21 AM EDT us Harvey Domínguez III, MD POINT OF CARE TEST ORDERABLES Final Result Performing Organization Address [facility] de Phone Number [facility] [address] [facility]. [address] * Transfuse Fresh Frozen Plasma Transfusion Rate: Per dept routine (10/27/2024 1:03 AM EDT) us John Pina MD NURSING TREATMENT ORDERABLES - BLOOD ADMIN Final Result Performing Organization Address [facility] de Phone Number EXTERNAL * Transfuse Fresh Frozen Plasma Transfusion Rate: Per dept routine, 1 Units (10/27/2024 1:03 AM EDT) us John Pina MD NURSING TREATMENT ORDERABLES - BLOOD ADMIN Final Result Performing Organization Address [facility]/ZIP Co de Phone Number EXTERNAL * Calcium Free, Serum (10/27/2024 12:13 AM EDT) Free Calcium, Ser 5.20 4.40 - 5.40 mg/dL 10/27/2024 12:37 AM EDT [facility] Comment:Free calcium levels vary inversely with pH by approximately 5% for each 0.1 unit of pH change. Assay results have been normalized to pH = 7.40. Serum 10/27/2024 12:1 3 AM EDT 10/27/2024 12:29 AM EDT Narrative [facility] - 10/27/2024 12:37 AM EDT This test has been developed and its performance characteristics determined by [facility] which is certified under the Clinical Laboratory Improvement Amendment of 1988 (CLIA-88) to perform high complexity testing. The test has not been cleared or approved by the US Food and Drug Administration (FDA). The FDA has determined that such clearance is not necessary. The test should be used for clinical purposes and is not regarded as investigational. us John Pina MD LAB BLOOD ORDERABLES Final Resu lt [facility] [address] [place] [address], [facility] * (ABNORMAL) Blood Gas, Arterial, STAT (10/27/2024 12:13 AM EDT) O2 Sat, Arterial 100 10/27/2024 12:23 AM EDT [facility] FIO2 30 10/27/2024 12:23 AM EDT [facility] pH, Arterial 7.32(L) 7.35 - 7.45 10/27/2024 12:23 AM EDT [facility] pCO2, Arterial 37 35 - 45 mm Hg 10/27/2024 12:23 AM EDT [facility] pO2, Arterial 137(H) 80 - 100 mm Hg 10/27/2024 12:23 AM EDT [facility] HCO3, Arterial 20(L) 22 - 26 mmol/L 10/27/2024 12:23 AM EDT [facility] CO2 Content,Arteri al 20(L) 23 - 27 mmol/L 10/27/2024 12:23 AM EDT [facility] Base Excess, Arterial -6.4(L) -2.0 - 3.0 mmol/L 10/27/2024 12:23 AM EDT [facility] %HBO2, Arterial 96.2 95.0 - 98.0 % 10/27/2024 12:23 AM EDT [facility] Carboxyhemoglo bin, Arterial 1.9 % 10/27/2024 12:23 AM EDT [facility] Comment: CARBOXYHEMOGLOBIN (CO) REFERENCE RANGES: Non-Smokers: <2 % Smokers: <8 % TOXIC: >20 % Methemoglobin, Arterial 1.5 0.0 - 1.5 % 10/27/2024 12:23 AM EDT [facility] Reduced hemoglobin, Arterial 0.4 0.0 - 5.0 % 10/27/2024 12:23 AM EDT [facility] Blood, Arterial 10/27/2024 1 2:13 AM EDT 10/27/2024 12:18 AM EDT us John Pina MD LAB BLOOD ORDERABLES Final Resu lt [facility] [address] [place] [id number], [facility] * (ABNORMAL) TEG-Bypass/ECMO/Liver HN (Factor function, Platelet/Fibrin Clot Strength w/Clot Breakdown, Heparinase In All Channels) (10/27/2024 12:13 AM EDT) [facility] Citrated Kaolin Reaction Time (TEGECMOLIVER) 9.1 4.6 - 9.1 minutes 10/27/2024 1:43 AM EDT [facility] Citrated Kaolin W/Heparinase Reaction Time (TEGECMOLIVER) 9.7(H) 4.3 - 8.3 minutes 10/27/2024 1:43 AM EDT [facility] Citrated Kaolin Maximum Amplitude (TEGECMOLIVER) <40.0(L) 52.0 - 69.0 mm 10/27/2024 1:43 AM EDT [facility] Citrated Functional Fibrinogen W/Heparinase Maximum Amplitude(TEGEC MOLIVER) 11.9(L) 15.0 - 34.0 mm 10/27/2024 1:43 AM EDT [facility] Citrated Rapid Teg W/Heparinase Maximum Amplitude (TEGECMOLIVER) 31.6(L) 53.0 - 69.0 mm 10/27/2024 1:43 AM EDT [facility] Citrated Kaolin w/Heparinase Percent Lysis (TEGECMOLIVER) 0.0 0.0 - 3.2 % 10/27/2024 1:43 AM EDT [facility] Whole Blood (Citrate) 10/27/2024 12:13 AM EDT 10/27/2024 12:18 AM EDT Kemar Sahni MD LAB BLOOD ORDERABLES Final Result [facility] [address] * (ABNORMAL) Lactic Acid (10/27/2024 12:13 AM EDT) Lactate 0.2(L) 0.5 - 2.2 mmol/L 10/27/2024 12:59 AM EDT [facility] Plasma 10/27/2024 12:1 3 AM EDT 10/27/2024 12:31 AM EDT Kemar Sahni MD LAB BLOOD ORDERABLES Final Result [facility] [address] * Magnesium (10/27/2024 12:13 AM EDT) Magnesium 1.8 1.5 - 2.5 mg/dL 10/27/2024 12:52 AM EDT [facility] Plasma 10/27/2024 12:1 3 AM EDT 10/27/2024 12:29 AM EDT Kemar Sahni MD LAB BLOOD ORDERABLES Final Result [facility] [address] [facility] [place] [address], [facility] * (ABNORMAL) Hepatic Function Panel (10/27/2024 12:13 AM EDT) Total Bilirubin 1.6(H) 0.0 - 1.5 mg/dL 10/27/2024 12:52 AM EDT [facility] Bilirubin, Direct 1.17(H) 0.00 - 0.40 mg/dL 10/27/2024 12:52 AM EDT [facility] AST 157(H) 13 - 39 U/L 10/27/2024 12:52 AM EDT [facility] ALT 261(H) 7 - 52 U/L 10/27/2024 12:52 AM EDT [facility] Alkaline Phosphatase 26(L) 36 - 125 U/L 10/27/2024 12:52 AM EDT [facility] Total Protein 3.8(L) 6.4 - 8.9 g/dL 10/27/2024 12:52 AM EDT [facility] Albumin 2.8(L) 3.5 - 5.7 g/dL 10/27/2024 12:52 AM EDT [facility] Bilirubin, Indirect 0.43 0.00 - 1.10 mg/dL 10/27/2024 12:52 AM EDT [facility] Plasma 10/27/2024 12:1 3 AM EDT 10/27/2024 12:29 AM EDT Kemar Sahni MD LAB BLOOD ORDERABLES Final Result [facility] [address] [facility] [place] [address], [facility] * (ABNORMAL) Protime-INR (10/27/2024 12:13 AM EDT) Protime 18.6(H) 12.1 - 15.1 seconds 10/27/2024 12:43 AM EDT [facility] INR 1.5(H) 0.9 - 1.1 10/27/2024 12:43 AM EDT [facility] Comment: RECOMMENDED THERAPEUTIC RANGES USING INR : Stable oral anticoagulant therapy: 2.0 - 3.0 Mechanical prosthetic heart valve: 2.5 - 3.5 Recurrent acute myocardial infarction: 2.5 - 3.5 Plasma 10/27/2024 12:1 3 AM EDT 10/27/2024 12:29 AM EDT Kemar Sahni MD LAB BLOOD ORDERABLES Final Result [facility] [address] [facility] [place] [id number], [facility] [facility] * (ABNORMAL) CBC (10/27/2024 12:13 AM EDT) WBC 5.0 3.8 - 10.8 10E3/uL 10/27/2024 12:59 AM EDT [facility] RBC 2.70(L) 4.20 - 5.80 10E6/uL 10/27/2024 12:59 AM EDT [facility] Hemoglobin 8.5(L) 13.2 - 17.1 g/dL 10/27/2024 12:59 AM EDT [facility] Hematocrit 23.9(L) 38.5 - 50.0 % 10/27/2024 12:59 AM EDT [facility] MCV 88.5 80.0 - 100.0 fL 10/27/2024 12:59 AM EDT [facility] MCH 31.5 27.0 - 33.0 pg 10/27/2024 12:59 AM EDT [facility] MCHC 35.6 32.0 - 36.0 g/dL 10/27/2024 12:59 AM EDT [facility] RDW 20.6(H) 11.0 - 15.0 % 10/27/2024 12:59 AM EDT [facility] Platelets 35(L) 140 - 400 10E3/uL 10/27/2024 12:59 AM EDT [facility] Comment: CNV Specimen checked for clots. None detected. MPV 7.6 7.5 - 11.5 fL 10/27/2024 12:59 AM EDT [facility] Whole Blood 10/27/2024 12:1 3 AM EDT 10/27/2024 12:29 AM EDT Kemar Sahni MD LAB BLOOD ORDERABLES Final Result [facility] [address] [place] [address], [facility] * (ABNORMAL) Renal Function Panel w/EGFR (10/27/2024 12:13 AM EDT) Sodium 141 133 - 146 mmol/L 10/27/2024 12:52 AM EDT [facility] Potassium 3.2(L) 3.5 - 5.3 mmol/L 10/27/2024 12:52 AM EDT [facility] Chloride 109 98 - 110 mmol/L 10/27/2024 12:52 AM EDT [facility] CO2 21 21 - 33 mmol/L 10/27/2024 12:52 AM EDT [facility] Anion Gap 11 3 - 16 mmol/L 10/27/2024 12:52 AM EDT [facility] BUN 64(H) 7 - 25 mg/dL 10/27/2024 12:52 AM EDT [facility] Creatinine 2.58(H) 0.60 - 1.30 mg/dL 10/27/2024 12:52 AM EDT [facility] Glucose 126(H) 70 - 100 mg/dL 10/27/2024 12:52 AM EDT [facility] Calcium 8.9 8.6 - 10.3 mg/dL 10/27/2024 12:52 AM EDT [facility] Phosphorus 5.3(H) 2.1 - 4.7 mg/dL 10/27/2024 12:52 AM EDT [facility] Albumin 2.8(L) 3.5 - 5.7 g/dL 10/27/2024 12:52 AM EDT [facility] Osmolality, Calculated 312(H) 278 - 305 mOsm/kg 10/27/2024 12:52 AM EDT [facility] EGFR 31 10/27/2024 12:52 AM EDT [facility] Comment:As of 2021, the estimated [...] Disease. Am J Kidney Dis. 2020. Plasma 10/27/2024 12:1 3 AM EDT 10/27/2024 12:29 AM EDT Kemar Sahni MD LAB BLOOD ORDERABLES Final Result Performing Organization Address [facility] Co de Phone Number [facility] [address] [facility]. [address] * (ABNORMAL) POC Glucose Monitoring Device (10/27/2024 12:08 AM EDT) POC Glucose Monitoring Device 121(H) 70 - 100 mg/dL 10/27/2024 12:08 AM EDT [facility] Blood 10/27/2024 12:0 8 AM EDT 10/27/2024 12:08 AM EDT Havrey Domínguez III, MD POINT OF CARE TEST ORDERABLES Final Result Performing Organization Address [facility]/ZIP Co de Phone Number [facility] [address] * (ABNORMAL) POC Glucose Monitoring Device (10/26/2024 11:15 PM EDT) POC Glucose Monitoring Device 120(H) 70 - 100 mg/dL 10/26/2024 11:15 PM EDT [facility] Blood 10/26/2024 11:1 5 PM EDT 10/26/2024 11:15 PM EDT Harvey Domínguez III, MD POINT OF CARE TEST ORDERABLES Final Result [facility] [address] [facility]. [address] * (ABNORMAL) TEG-Bypass/ECMO/Liver HN (Factor function, Platelet/Fibrin Clot Strength w/Clot Breakdown, Heparinase In All Channels) (10/26/2024 10:36 PM EDT) [facility] Citrated Kaolin Reaction Time (TEGECMOLIVER) 10.0(H) 4.6 - 9.1 minutes 10/26/2024 11:53 PM EDT [facility] Citrated Kaolin W/Heparinase Reaction Time (TEGECMOLIVER) 10.2(H) 4.3 - 8.3 minutes 10/26/2024 11:53 PM EDT [facility] Citrated Kaolin Maximum Amplitude (TEGECMOLIVER) <40.0(L) 52.0 - 69.0 mm 10/26/2024 11:53 PM EDT [facility] Citrated Functional Fibrinogen W/Heparinase Maximum Amplitude(TEGEC MOLIVER) 11.3(L) 15.0 - 34.0 mm 10/26/2024 11:53 PM EDT [facility] Citrated Rapid Teg W/Heparinase Maximum Amplitude (TEGECMOLIVER) 41.8(L) 53.0 - 69.0 mm 10/26/2024 11:53 PM EDT [facility] Citrated Kaolin w/Heparinase Percent Lysis (TEGECMOLIVER) 0.0 0.0 - 3.2 % 10/26/2024 11:53 PM EDT [facility] Whole Blood (Citrate) 10/26/2024 10:36 PM EDT 10/26/2024 10:43 PM EDT us Kemar Sahni MD LAB BLOOD ORDERABLES Final Result [facility] [address] [facility]. [address] * (ABNORMAL) POC Glucose Monitoring Device (10/26/2024 10:14 PM EDT) POC Glucose Monitoring Device 124(H) 70 - 100 mg/dL 10/26/2024 11:11 PM EDT [facility] Blood 10/26/2024 10:1 4 PM EDT 10/26/2024 11:11 PM EDT Harvey Domínguez III, MD POINT OF CARE TEST ORDERABLES Final Result [facility] [address] [facility]. [address] * (ABNORMAL) POC Glucose Monitoring Device (10/26/2024 9:16 PM EDT) POC Glucose Monitoring Device 119(H) 70 - 100 mg/dL 10/26/2024 9:18 PM EDT [facility] Blood 10/26/2024 9:16 PM EDT 10/26/2024 9:18 PM EDT Harvey Domínguez III, MD POINT OF CARE TEST ORDERABLES Final Result Performing Organization Address City/[facility]/ZIP Co de Phone Number [facility] [address] [facility]. [address] * (ABNORMAL) POC Glucose Monitoring Device (10/26/2024 8:05 PM EDT) POC Glucose Monitoring Device 113(H) 70 - 100 mg/dL 10/26/2024 8:06 PM EDT [facility] Blood 10/26/2024 8:05 PM EDT 10/26/2024 8:06 PM EDT us Harvey Domínguez III, MD POINT OF CARE TEST ORDERABLES Final Result [facility] [address] [facility]. [address] * (ABNORMAL) POC Glucose Monitoring Device (10/26/2024 7:02 PM EDT) POC Glucose Monitoring Device 111(H) 70 - 100 mg/dL 10/26/2024 7:03 PM EDT [facility] Blood 10/26/2024 7:02 PM EDT 10/26/2024 7:03 PM EDT us Harvey Domínguez III, MD POINT OF CARE TEST ORDERABLES Final Result [facility] [address] [facility]. [address] * Transfuse Cryoprecipitate Transfusion Rate: Per dept routine (10/26/2024 6:39 PM EDT) Result Tiburcio Pina MD NURSING TREATMENT ORDERABLES - BLOOD ADMIN Final Result Performing Organization Address City/[facility] Co de Phone Number EXTERNAL * Transfuse Cryoprecipitate Transfusion Rate: Per dept routine, 1 Units (10/26/2024 6:39 PM EDT) Result Tiburcio Pina MD NURSING TREATMENT ORDERABLES - BLOOD ADMIN Final Result Performing Organization Address City/[facility] Co de Phone Number EXTERNAL * (ABNORMAL) POC Glucose Monitoring Device (10/26/2024 6:33 PM EDT) POC Glucose Monitoring Device 110(H) 70 - 100 mg/dL 10/26/2024 6:34 PM EDT [facility] Blood 10/26/2024 6:33 PM EDT 10/26/2024 6:34 PM EDT Result Tiburcio Domínguez III, MD POINT OF CARE TEST ORDERABLES Final Result Performing Organization Address City/[facility] Co de Phone Number [facility] [address] * Transfuse Cryoprecipitate Transfusion Rate: Per dept routine (10/26/2024 6:22 PM EDT) Result Tiburcio Pina MD NURSING TREATMENT ORDERABLES - BLOOD ADMIN Final Result Performing Organization Address [facility] de Phone Number EXTERNAL * Transfuse Cryoprecipitate Transfusion Rate: Per dept routine, 1 Units (10/26/2024 6:22 PM EDT) John Pina MD NURSING TREATMENT ORDERABLES - BLOOD ADMIN Final Result Performing Organization Address [facility] Co de Phone Number EXTERNAL * (ABNORMAL) POC Glucose Monitoring Device (10/26/2024 6:17 PM EDT) POC Glucose Monitoring Device 104(H) 70 - 100 mg/dL 10/26/2024 6:18 PM EDT [facility] Blood 10/26/2024 6:17 PM EDT 10/26/2024 6:18 PM EDT Harvey Domínguez III, MD POINT OF CARE TEST ORDERABLES Final Result Performing Organization Address [facility] Co de Phone Number [facility] [address] [facility]. [address] * (ABNORMAL) POC Glucose Monitoring Device (10/26/2024 4:58 PM EDT) POC Glucose Monitoring Device 115(H) 70 - 100 mg/dL 10/26/2024 4:59 PM EDT [facility] Blood 10/26/2024 4:58 PM EDT 10/26/2024 4:58 PM EDT Harvey Domínguez III, MD POINT OF CARE TEST ORDERABLES Final Result Performing Organization Address [facility] Co de Phone Number [facility] [address] * (ABNORMAL) Calcium Free, Serum (10/26/2024 4:42 PM EDT) Free Calcium, Ser 5.67(H) 4.40 - 5.40 mg/dL 10/26/2024 4:55 PM EDT [facility] Comment:Free calcium levels vary inversely with pH by approximately 5% for each 0.1 unit of pH change. Assay results have been normalized to pH = 7.40. Serum 10/26/2024 4:42 PM EDT 10/26/2024 4:47 PM EDT Narrative [facility] - 10/26/2024 4:55 PM EDT This test has been developed and its performance characteristics determined by [facility] which is certified under the Clinical Laboratory Improvement Amendment of 1988 (CLIA-88) to perform high complexity testing. The test has not been cleared or approved by the US Food and Drug Administration (FDA). The FDA has determined that such clearance is not necessary. The test should be used for clinical purposes and is not regarded as investigational. John Pina MD LAB BLOOD ORDERABLES Final Resu lt Performing Organization Address [facility] Co de Phone Number [address] * Repeat Crossmatch (Recipient Sample) (10/26/2024 4:42 PM EDT) Repeat Cx - Recipient The request and specimen(s) for this test have been received and transported to the [facility] at [address] [place] [address]. The [facility] will report results directly to the client. 10/26/2024 4:49 PM EDT [facility] Whole Blood 10/26/2024 4:42 PM EDT 10/26/2024 4:49 PM EDT Narrative [facility] - 10/26/2024 4:49 PM EDT To be sent to [facility] for Donor UNOS#[id number] cross match with Blair Gilbert Sveta Judge MD LAB BLOOD ORDERABLES Final Resu lt Performing Organization Address [facility] Co de Phone Number [facility] [address] * (ABNORMAL) Lactic Acid (10/26/2024 4:42 PM EDT) Lactate 0.3(L) 0.5 - 2.2 mmol/L 10/26/2024 5:19 PM EDT [facility] Plasma 10/26/2024 4:42 PM EDT 10/26/2024 4:47 PM EDT Kemar Sahni MD LAB BLOOD ORDERABLES Final Result [facility] [address] [facility]. [address] * Magnesium (10/26/2024 4:42 PM EDT) Magnesium 2.0 1.5 - 2.5 mg/dL 10/26/2024 5:24 PM EDT [facility] Plasma 10/26/2024 4:42 PM EDT 10/26/2024 4:47 PM EDT Kemar Sahni MD LAB BLOOD ORDERABLES Final Result Performing Organization Address [facility] de Phone Number [facility] [address] [facility]. [address] * (ABNORMAL) Hepatic Function Panel (10/26/2024 4:42 PM EDT) Total Bilirubin 2.3(H) 0.0 - 1.5 mg/dL 10/26/2024 5:24 PM EDT [facility] Bilirubin, Direct 1.85(H) 0.00 - 0.40 mg/dL 10/26/2024 5:24 PM EDT [facility] AST 374(H) 13 - 39 U/L 10/26/2024 5:24 PM EDT [facility] ALT 458(H) 7 - 52 U/L 10/26/2024 5:24 PM EDT [facility] Alkaline Phosphatase 39 36 - 125 U/L 10/26/2024 5:24 PM EDT [facility] Total Protein 3.8(L) 6.4 - 8.9 g/dL 10/26/2024 5:24 PM EDT [facility] Albumin 3.0(L) 3.5 - 5.7 g/dL 10/26/2024 5:24 PM EDT [facility] Bilirubin, Indirect 0.45 0.00 - 1.10 mg/dL 10/26/2024 5:24 PM EDT [facility] Plasma 10/26/2024 4:42 PM EDT 10/26/2024 4:47 PM EDT Kemar Sahni MD LAB BLOOD ORDERABLES Final Result Performing Organization Address [facility] Co de Phone Number [facility] [address] [facility]. [address] * (ABNORMAL) Protime-INR (10/26/2024 4:42 PM EDT) Protime 20.3(H) 12.1 - 15.1 seconds 10/26/2024 5:12 PM EDT [facility] INR 1.7(H) 0.9 - 1.1 10/26/2024 5:12 PM EDT [facility] Comment: RECOMMENDED THERAPEUTIC RANGES USING INR : Stable oral anticoagulant therapy: 2.0 - 3.0 Mechanical prosthetic heart valve: 2.5 - 3.5 Recurrent acute myocardial infarction: 2.5 - 3.5 Plasma 10/26/2024 4:42 PM EDT 10/26/2024 4:47 PM EDT Kemar Sahni MD LAB BLOOD ORDERABLES Final Result Performing Organization Address [facility] Co de Phone Number [facility] [address] [facility]. [address] * (ABNORMAL) CBC (10/26/2024 4:42 PM EDT) WBC 10.0 3.8 - 10.8 10E3/uL 10/26/2024 5:00 PM EDT [facility] RBC 3.44(L) 4.20 - 5.80 10E6/uL 10/26/2024 5:00 PM EDT [facility] Hemoglobin 10.5(L) 13.2 - 17.1 g/dL 10/26/2024 5:00 PM EDT [facility] Hematocrit 30.2(L) 38.5 - 50.0 % 10/26/2024 5:00 PM EDT [facility] MCV 87.7 80.0 - 100.0 fL 10/26/2024 5:00 PM EDT [facility] MCH 30.6 27.0 - 33.0 pg 10/26/2024 5:00 PM EDT [facility] MCHC 34.8 32.0 - 36.0 g/dL 10/26/2024 5:00 PM EDT [facility] RDW 20.1(H) 11.0 - 15.0 % 10/26/2024 5:00 PM EDT [facility] Platelets 48(L) 140 - 400 10E3/uL 10/26/2024 5:00 PM EDT [facility] Comment:Specimen checked for clots. None detected. MPV 7.9 7.5 - 11.5 fL 10/26/2024 5:00 PM EDT [facility] Whole Blood 10/26/2024 4:42 PM EDT 10/26/2024 4:47 PM EDT Kemar Sahni MD LAB BLOOD ORDERABLES Final Result [facility] [address] * (ABNORMAL) Renal Function Panel w/EGFR (10/26/2024 4:42 PM EDT) Sodium 142 133 - 146 mmol/L 10/26/2024 5:24 PM EDT [facility] Potassium 3.3(L) 3.5 - 5.3 mmol/L 10/26/2024 5:24 PM EDT [facility] Chloride 109 98 - 110 mmol/L 10/26/2024 5:24 PM EDT [facility] CO2 23 21 - 33 mmol/L 10/26/2024 5:24 PM EDT [facility] Anion Gap 10 3 - 16 mmol/L 10/26/2024 5:24 PM EDT [facility] BUN 63(H) 7 - 25 mg/dL 10/26/2024 5:24 PM EDT [facility] Creatinine 2.85(H) 0.60 - 1.30 mg/dL 10/26/2024 5:24 PM EDT [facility] Glucose 127(H) 70 - 100 mg/dL 10/26/2024 5:24 PM EDT [facility] Calcium 8.9 8.6 - 10.3 mg/dL 10/26/2024 5:24 PM EDT [facility] Phosphorus 4.4 2.1 - 4.7 mg/dL 10/26/2024 5:24 PM EDT [facility] Albumin 3.0(L) 3.5 - 5.7 g/dL 10/26/2024 5:24 PM EDT [facility] Osmolality, Calculated 314(H) 278 - 305 mOsm/kg 10/26/2024 5:24 PM EDT [facility] EGFR 28 10/26/2024 5:24 PM EDT [facility] Comment:As of 2021, the estimated [...] Disease. Am J Kidney Dis. 2020. Plasma 10/26/2024 4:42 PM EDT 10/26/2024 4:47 PM EDT us Kemar Sahni MD LAB BLOOD ORDERABLES Final Result [facility] [address] [place] [address], [facility] * (ABNORMAL) POC Glucose Monitoring Device (10/26/2024 3:54 PM EDT) POC Glucose Monitoring Device 126(H) 70 - 100 mg/dL 10/26/2024 3:55 PM EDT [facility] Blood 10/26/2024 3:54 PM EDT 10/26/2024 3:55 PM EDT Harvey Domínguez III, MD POINT OF CARE TEST ORDERABLES Final Result Performing Organization Address City/[facility] Co de Phone Number [facility] [address] [place] [address]. [address] * (ABNORMAL) POC Glucose Monitoring Device (10/26/2024 3:06 PM EDT) POC Glucose Monitoring Device 144(H) 70 - 100 mg/dL 10/26/2024 3:14 PM EDT [facility] Blood 10/26/2024 3:06 PM EDT 10/26/2024 3:13 PM EDT Harvey Domínguez III, MD POINT OF CARE TEST ORDERABLES Final Result Performing Organization Address [facility] de Phone Number [facility] [address] [place] [address] * (ABNORMAL) TEG-Bypass/ECMO/Liver HN (Factor function, Platelet/Fibrin Clot Strength w/Clot Breakdown, Heparinase In All Channels) (10/26/2024 3:03 PM EDT) Citrated Kaolin Reaction Time (TEGECMOLIVER) 8.2 4.6 - 9.1 minutes 10/26/2024 4:43 PM EDT [facility] Citrated Kaolin W/Heparinase Reaction Time (TEGECMOLIVER) 8.2 4.3 - 8.3 minutes 10/26/2024 4:43 PM EDT [facility] Citrated Kaolin Maximum Amplitude (TEGECMOLIVER) 41.7(L) 52.0 - 69.0 mm 10/26/2024 4:43 PM EDT [facility] Citrated Functional Fibrinogen W/Heparinase Maximum Amplitude(TEGEC MOLIVER) 11.4(L) 15.0 - 34.0 mm 10/26/2024 4:43 PM EDT [facility] Citrated Rapid Teg W/Heparinase Maximum Amplitude (TEGECMOLIVER) 38.6(L) 53.0 - 69.0 mm 10/26/2024 4:43 PM EDT [facility] Citrated Kaolin w/Heparinase Percent Lysis (TEGECMOLIVER) 0.0 0.0 - 3.2 % 10/26/2024 4:43 PM EDT [facility] Whole Blood (Citrate) 10/26/2024 3:03 PM EDT 10/26/2024 3:10 PM EDT Jani Mooney MD LAB BLOOD ORDERABLES Final Resul t Performing Organization Address [facility] de Phone Number [facility] [address] * ECG 12 lead (MUSE) (10/26/2024 2:19 PM EDT) 10/26/2024 2:19 PM EDT Narrative MUSE - 10/27/2024 10:09 AM EDT Ventricular Rate: 105 BPM Atrial Rate: 105 BPM P-R Interval: 128 ms QRS Duration: 94 ms QT: 474 ms QTc: 626 ms R [place]: -37 degrees T [place]: 35 degrees Diagnosis Line: Critical Test Result: Long QTc ^ SINUS TACHYCARDIA ^ LEFT AXIS DEVIATION, LEFT ANTERIOR HEMIBLOCK ^ PROLONGED QT ^ ABNORMAL ECG ^ ^ Confirmed by MD HA, [facility] ([id number]) on 10/27/2024 10:09:25 AM Quinten Best MD ECG ORDERABLES Final Result Performing Organization Address City/[facility]/ZIP Co de Phone Number MUSE * (ABNORMAL) POC Glucose Monitoring Device (10/26/2024 2:00 PM EDT) [facility] POC Glucose Monitoring Device 183(H) 70 - 100 mg/dL 10/26/2024 2:01 PM EDT [facility] Blood 10/26/2024 2:00 PM EDT 10/26/2024 2:01 PM EDT us Harvey Domínguez III, MD POINT OF CARE TEST ORDERABLES Final Result Performing Organization Address [facility] de Phone Number [facility] [address] * (ABNORMAL) POC Glucose Monitoring Device (10/26/2024 1:05 PM EDT) POC Glucose Monitoring Device 212(H) 70 - 100 mg/dL 10/26/2024 1:06 PM EDT [facility] Blood 10/26/2024 1:05 PM EDT 10/26/2024 1:06 PM EDT Harvey Domínguez III, MD POINT OF CARE TEST ORDERABLES Final Result Performing Organization Address [facility] de Phone Number [facility] [address] * Transfuse Cryoprecipitate Has consent been obtained? Yes; Transfusion Rate: Per dept routine (10/26/2024 12:25 PM EDT) us Shay Sifuentes MD NURSING TREATMENT ORDERABLES - BLOOD ADMIN Final Result Performing Organization Address [facility] de Phone Number EXTERNAL * Transfuse Cryoprecipitate Has consent been obtained? Yes; Transfusion Rate: Per dept routine, 1 Units (10/26/2024 12:25 PM EDT) Shay Sifuentes MD NURSING TREATMENT ORDERABLES - BLOOD ADMIN Final Result Performing Organization Address [facility] de Phone Number EXTERNAL * (ABNORMAL) POC Glucose Monitoring Device (10/26/2024 12:06 PM EDT) POC Glucose Monitoring Device 226(H) 70 - 100 mg/dL 10/26/2024 12:07 PM EDT [facility] Blood 10/26/2024 12:0 6 PM EDT 10/26/2024 12:07 PM EDT Harvey Domínguez III, MD POINT OF CARE TEST ORDERABLES Final Result Performing Organization Address [facility] Co de Phone Number [facility] [address] * Transfuse Cryoprecipitate Transfusion Rate: Per dept routine (10/26/2024 12:01 PM EDT) John Pina MD NURSING TREATMENT ORDERABLES - BLOOD ADMIN Final Result Performing Organization Address [facility] Co de Phone Number EXTERNAL * Transfuse Cryoprecipitate Transfusion Rate: Per dept routine, 1 Units (10/26/2024 12:01 PM EDT) John Pina MD NURSING TREATMENT ORDERABLES - BLOOD ADMIN Final Result Performing Organization Address [facility] de Phone Number EXTERNAL * Lactic Acid (10/26/2024 10:48 AM EDT) Lactate 1.2 0.5 - 2.2 mmol/L 10/26/2024 11:27 AM EDT [facility] Plasma 10/26/2024 10:4 8 AM EDT 10/26/2024 10:53 AM EDT Kemar Sahni MD LAB BLOOD ORDERABLES Final Result Performing Organization Address [facility] de Phone Number [facility] [address] * Magnesium (10/26/2024 10:48 AM EDT) Magnesium 2.0 1.5 - 2.5 mg/dL 10/26/2024 11:26 AM EDT [facility] Plasma 10/26/2024 10:4 8 AM EDT 10/26/2024 10:53 AM EDT Kemar Sahni MD LAB BLOOD ORDERABLES Final Result Performing Organization Address City/[facility] Co de Phone Number [facility] [address] * (ABNORMAL) Hepatic Function Panel (10/26/2024 10:48 AM EDT) Total Bilirubin 5.9(H) 0.0 - 1.5 mg/dL 10/26/2024 11:26 AM EDT [facility] Bilirubin, Direct 4.74(H) 0.00 - 0.40 mg/dL 10/26/2024 11:26 AM EDT [facility] AST 872(H) 13 - 39 U/L 10/26/2024 11:26 AM EDT [facility] ALT 736(H) 7 - 52 U/L 10/26/2024 11:26 AM EDT [facility] Alkaline Phosphatase 56 36 - 125 U/L 10/26/2024 11:26 AM EDT [facility] Total Protein 3.5(L) 6.4 - 8.9 g/dL 10/26/2024 11:26 AM EDT [facility] Albumin 2.5(L) 3.5 - 5.7 g/dL 10/26/2024 11:26 AM EDT [facility] Bilirubin, Indirect 1.16(H) 0.00 - 1.10 mg/dL 10/26/2024 11:26 AM EDT [facility] Plasma 10/26/2024 10:4 8 AM EDT 10/26/2024 10:53 AM EDT Kemar Sahni MD LAB BLOOD ORDERABLES Final Result [facility] [address] [place], [place] [id number] [place] [address] * (ABNORMAL) Protime-INR (10/26/2024 10:48 AM EDT) Protime 23.0(H) 12.1 - 15.1 seconds 10/26/2024 11:26 AM EDT [facility] INR 2.0(H) 0.9 - 1.1 10/26/2024 11:26 AM EDT [facility] Comment: RECOMMENDED THERAPEUTIC RANGES USING INR : Stable oral anticoagulant therapy: 2.0 - 3.0 Mechanical prosthetic heart valve: 2.5 - 3.5 Recurrent acute myocardial infarction: 2.5 - 3.5 Plasma 10/26/2024 10:4 8 AM EDT 10/26/2024 10:53 AM EDT Kemar Sahni MD LAB BLOOD ORDERABLES Final Result Performing Organization Address City/State/[facility] Co de Phone Number [facility] [address] [place] [address] * (ABNORMAL) CBC (10/26/2024 10:48 AM EDT) WBC 17.3(H) 3.8 - 10.8 10E3/uL 10/26/2024 11:14 AM EDT [facility] RBC 4.22 4.20 - 5.80 10E6/uL 10/26/2024 11:14 AM EDT [facility] Hemoglobin 12.8(L) 13.2 - 17.1 g/dL 10/26/2024 11:14 AM EDT [facility] Hematocrit 37.2(L) 38.5 - 50.0 % 10/26/2024 11:14 AM EDT [facility] MCV 88.3 80.0 - 100.0 fL 10/26/2024 11:14 AM EDT [facility] MCH 30.4 27.0 - 33.0 pg 10/26/2024 11:14 AM EDT [facility] MCHC 34.4 32.0 - 36.0 g/dL 10/26/2024 11:14 AM EDT [facility] RDW 20.8(H) 11.0 - 15.0 % 10/26/2024 11:14 AM EDT [facility] Platelets 109(L) 140 - 400 10E3/uL 10/26/2024 11:14 AM EDT [facility] MPV 7.5 7.5 - 11.5 fL 10/26/2024 11:14 AM EDT [facility] Whole Blood 10/26/2024 10:4 8 AM EDT 10/26/2024 10:53 AM EDT Kemar Sahni MD LAB BLOOD ORDERABLES Final Result [facility] [address] [place] [address], [facility] * (ABNORMAL) Blood gas, arterial (10/26/2024 10:48 AM EDT) O2 Sat, Arterial 97 10/26/2024 10:54 AM EDT [facility] FIO2 35% 10/26/2024 10:54 AM EDT [facility] pH, Arterial 7.37 7.35 - 7.45 10/26/2024 10:54 AM EDT [facility] pCO2, Arterial 36 35 - 45 mm Hg 10/26/2024 10:54 AM EDT [facility] pO2, Arterial 91 80 - 100 mm Hg 10/26/2024 10:54 AM EDT [facility] HCO3, Arterial 22 22 - 26 mmol/L 10/26/2024 10:54 AM EDT [facility] CO2 Content,Arteri al 22(L) 23 - 27 mmol/L 10/26/2024 10:54 AM EDT [facility] Base Excess, Arterial -3.9(L) -2.0 - 3.0 mmol/L 10/26/2024 10:54 AM EDT [facility] %HBO2, Arterial 94.8(L) 95.0 - 98.0 % 10/26/2024 10:54 AM EDT [facility] Carboxyhemoglo bin, Arterial 1.9 % 10/26/2024 10:54 AM EDT [facility] Comment: CARBOXYHEMOGLOBIN (CO) REFERENCE RANGES: Non-Smokers: <2 % Smokers: <8 % TOXIC: >20 % Methemoglobin, Arterial 0.7 0.0 - 1.5 % 10/26/2024 10:54 AM EDT [facility] Reduced hemoglobin, Arterial 2.5 0.0 - 5.0 % 10/26/2024 10:54 AM EDT [facility] Blood, Arterial 10/26/2024 1 0:48 AM EDT 10/26/2024 10:52 AM EDT hSay Sifuentes MD LAB BLOOD ORDERABLES Final Resu lt [facility] [address] [place] [address], [facility] * (ABNORMAL) Renal Function Panel w/EGFR (10/26/2024 10:48 AM EDT) Sodium 139 133 - 146 mmol/L 10/26/2024 11:26 AM EDT [facility] Potassium 2.9(LL) 3.5 - 5.3 mmol/L 10/26/2024 11:26 AM EDT [facility] Comment:K CRITICAL VALUE WAS PREVIOUSLY CALLED Chloride 107 98 - 110 mmol/L 10/26/2024 11:26 AM EDT [facility] CO2 22 21 - 33 mmol/L 10/26/2024 11:26 AM EDT [facility] Anion Gap 10 3 - 16 mmol/L 10/26/2024 11:26 AM EDT [facility] BUN 61(H) 7 - 25 mg/dL 10/26/2024 11:26 AM EDT [facility] Creatinine 2.78(H) 0.60 - 1.30 mg/dL 10/26/2024 11:26 AM EDT [facility] Glucose 253(H) 70 - 100 mg/dL 10/26/2024 11:26 AM EDT [facility] Calcium 8.8 8.6 - 10.3 mg/dL 10/26/2024 11:26 AM EDT [facility] Phosphorus 4.1 2.1 - 4.7 mg/dL 10/26/2024 11:26 AM EDT [facility] Albumin 2.5(L) 3.5 - 5.7 g/dL 10/26/2024 11:26 AM EDT [facility] Osmolality, Calculated 314(H) 278 - 305 mOsm/kg 10/26/2024 11:26 AM EDT [facility] EGFR 28 10/26/2024 11:26 AM EDT [facility] Comment:As of 2021, the estimated [...] Disease. Am J Kidney Dis. 2020. Plasma 10/26/2024 10:4 8 AM EDT 10/26/2024 10:53 AM EDT Kemar Sahni MD LAB BLOOD ORDERABLES Final Result Performing Organization Address City/[facility]/ZIP Co de Phone Number [facility] [address] * (ABNORMAL) POC Glucose Monitoring Device (10/26/2024 10:47 AM EDT) POC Glucose Monitoring Device 234(H) 70 - 100 mg/dL 10/26/2024 10:48 AM EDT [facility] Blood 10/26/2024 10:4 7 AM EDT 10/26/2024 10:48 AM EDT Harvey Domínguez III, MD POINT OF CARE TEST ORDERABLES Final Result Performing Organization Address City/[facility]/ZIP Co de Phone Number [facility] [address] [facility]. [address] * CARISA Rhythm Strip - Scan (10/26/2024 10:45 AM EDT) Scanning Uchhim SCAN DOCS - NO RESULTS Final Res ult * (ABNORMAL) POC Glucose Monitoring Device (10/26/2024 10:08 AM EDT) POC Glucose Monitoring Device 235(H) 70 - 100 mg/dL 10/26/2024 10:09 AM EDT [facility] Blood 10/26/2024 10:0 8 AM EDT 10/26/2024 10:09 AM EDT Harvey Domínguez III, MD POINT OF CARE TEST ORDERABLES Final Result Performing Organization Address [facility] Co de Phone Number [facility] [address] * (ABNORMAL) POC Glucose Monitoring Device (10/26/2024 8:57 AM EDT) [facility] POC Glucose Monitoring Device 232(H) 70 - 100 mg/dL 10/26/2024 8:59 AM EDT [facility] Blood 10/26/2024 8:57 AM EDT 10/26/2024 8:58 AM EDT Harvey Domínguez III, MD POINT OF CARE TEST ORDERABLES Final Result Performing Organization Address [facility] de Phone Number [facility] [address] * ECG 12 lead (MUSE) (10/26/2024 8:16 AM EDT) 10/26/2024 8:16 AM EDT Narrative MUSE - 10/27/2024 10:09 AM EDT Ventricular Rate: 112 BPM QRS Duration: 96 ms QT: 452 ms QTc: 616 ms R [place]: -41 degrees T [place]: 40 degrees Diagnosis Line: Critical Test Result: Long QTc ^ SINUS TACHYCARDIA OCCASIONAL PREMATURE VENTRICULAR COMPLEXES ^ LEFT AXIS DEVIATION, LEFT ANTERIOR HEMIBLOCK ^ PROLONGED QT ^ ABNORMAL ECG ^ ^ Confirmed by MD HA, ERICK ([id number]) on 10/27/2024 10:09:18 AM Shay Sifuentes MD ECG ORDERABLES Final Result Performing Organization Address [facility] Co de Phone Number MUSE * X-ray Portable Chest (10/26/2024 8:13 AM EDT) Anatomical Region Laterality Modality Chest Radiographic Rachel ging 10/26/2024 7:07 AM EDT Impressions 10/26/2024 8:24 AM EDT IMPRESSION: Support devices as above. Report Verified by: Doron Castro MD at 10/26/2024 8:24 AM EDT Narrative 10/26/2024 8:24 AM EDT EXAM: XR PORTABLE CHEST INDICATION: Line Placement TECHNIQUE: 1 view of the chest. DATE: 10/26/2024 7:07 AM EDT COMPARISON: October 25, 2024 FINDINGS: Medical Devices: * Endotracheal tube with the tip in the mid thoracic trachea. * Right jugular approach pulmonary artery catheter with the tip in the right main pulmonary artery. * Gastric suction tube extending into the abdomen. * Upper abdominal embolization coils and packing material. Heart and Mediastinum: Normal heart size. Lungs and Pleura: Low lung volumes with mild basilar airspace opacity. No pneumothorax or large pleural effusion. Bones and soft tissues: Unchanged. Procedure Note Droon Castro MD - 10/26/2024 EXAM: XR PORTABLE CHEST INDICATION: Line Placement TECHNIQUE: 1 view of the chest. DATE: 10/26/2024 7:07 AM EDT COMPARISON: October 25, 2024 FINDINGS: Medical Devices: * Endotracheal tube with the tip in the mid thoracic trachea. * Right jugular approach pulmonary artery catheter with the tip in theright main pulmonary artery. * Gastric suction tube extending into the abdomen. * Upper abdominal embolization coils and packing material. Heart and Mediastinum: Normal heart size. Lungs and Pleura: Low lung volumes with mild basilar airspace opacity. Nopneumothorax or large pleural effusion. Bones and soft tissues: Unchanged. IMPRESSION: Support devices as above. Report Verified by: Doron Castro MD at 10/26/2024 8:24 AM EDT Sveta Judge MD IMG DIAGNOSTIC IMAGING ORDERABL ES Final Result * (ABNORMAL) POC Glucose Monitoring Device (10/26/2024 7:59 AM EDT) POC Glucose Monitoring Device 229(H) 70 - 100 mg/dL 10/26/2024 8:01 AM EDT [facility] Blood 10/26/2024 7:59 AM EDT 10/26/2024 8:00 AM EDT Harvey Domínguez III, MD POINT OF CARE TEST ORDERABLES Final Result Performing Organization Address City/[facility]/ZIP Co de Phone Number [facility] [address] [place] [facility]. [address] * (ABNORMAL) TEG-Bypass/ECMO/Liver HN (Factor function, Platelet/Fibrin Clot Strength w/Clot Breakdown, Heparinase In All Channels) (10/26/2024 7:59 AM EDT) [facility] Citrated Kaolin Reaction Time (TEGECMOLIVER) 8.2 4.6 - 9.1 minutes 10/26/2024 10:36 AM EDT [facility] Citrated Kaolin W/Heparinase Reaction Time (TEGECMOLIVER) 8.1 4.3 - 8.3 minutes 10/26/2024 10:36 AM EDT [facility] Citrated Kaolin Maximum Amplitude (TEGECMOLIVER) 46.8(L) 52.0 - 69.0 mm 10/26/2024 10:36 AM EDT [facility] Citrated Functional Fibrinogen W/Heparinase Maximum Amplitude(TEGEC MOLIVER) 10.5(L) 15.0 - 34.0 mm 10/26/2024 10:36 AM EDT [facility] Citrated Rapid Teg W/Heparinase Maximum Amplitude (TEGECMOLIVER) 45.5(L) 53.0 - 69.0 mm 10/26/2024 10:36 AM EDT [facility] Citrated Kaolin w/Heparinase Percent Lysis (TEGECMOLIVER) 0.0 0.0 - 3.2 % 10/26/2024 10:36 AM EDT [facility] Whole Blood (Citrate) 10/26/2024 7:59 AM EDT 10/26/2024 8:05 AM EDT us Shay Sifuentes MD LAB BLOOD ORDERABLES Final Resu lt [facility] [address] * (ABNORMAL) POC Glucose Monitoring Device (10/26/2024 6:12 AM EDT) [facility] POC Glucose Monitoring Device 196(H) 70 - 100 mg/dL 10/26/2024 6:13 AM EDT [facility] Blood 10/26/2024 6:12 AM EDT 10/26/2024 6:13 AM EDT Harvey Domínguez III, MD POINT OF CARE TEST ORDERABLES Final Result Performing Organization Address City/[facility]/ZIP Co de Phone Number [facility] [address] [place] [address]. [address] * Lactic Acid (10/26/2024 6:10 AM EDT) [facility] Lactate 1.2 0.5 - 2.2 mmol/L 10/26/2024 6:39 AM EDT [facility] Plasma 10/26/2024 6:10 AM EDT 10/26/2024 6:19 AM EDT Sveta Judge MD LAB BLOOD ORDERABLES Final Resu lt Performing Organization Address [facility] Co de Phone Number [facility] [address] [place] [address]. [address] * (ABNORMAL) Fibrinogen (10/26/2024 6:10 AM EDT) [facility] Fibrinogen 160(L) 218 - 406 mg/dL 10/26/2024 6:41 AM EDT [facility] Plasma 10/26/2024 6:10 AM EDT 10/26/2024 6:26 AM EDT Sveta Judge MD LAB BLOOD ORDERABLES Final Resu lt Performing Organization Address [facility] Co de Phone Number [facility] [address] [place] [address]. [address] * (ABNORMAL) Protime-INR (10/26/2024 6:10 AM EDT) Protime 25.0(H) 12.1 - 15.1 seconds 10/26/2024 6:41 AM EDT [facility] INR 2.2(H) 0.9 - 1.1 10/26/2024 6:41 AM EDT [facility] Comment: RECOMMENDED THERAPEUTIC RANGES USING INR : Stable oral anticoagulant therapy: 2.0 - 3.0 Mechanical prosthetic heart valve: 2.5 - 3.5 Recurrent acute myocardial infarction: 2.5 - 3.5 Plasma 10/26/2024 6:10 AM EDT 10/26/2024 6:26 AM EDT us Sveta Judge MD LAB BLOOD ORDERABLES Final Resu lt [facility] [address] [place] [address], [facility] * (ABNORMAL) Blood gas, arterial (10/26/2024 6:10 AM EDT) Pathologist [facility] O2 Sat, Arterial 98 10/26/2024 6:23 AM EDT [facility] FIO2 60 10/26/2024 6:23 AM EDT [facility] pH, Arterial 7.27(L) 7.35 - 7.45 10/26/2024 6:23 AM EDT [facility] pCO2, Arterial 47(H) 35 - 45 mm Hg 10/26/2024 6:23 AM EDT [facility] pO2, Arterial 127(H) 80 - 100 mm Hg 10/26/2024 6:23 AM EDT [facility] HCO3, Arterial 21(L) 22 - 26 mmol/L 10/26/2024 6:23 AM EDT [facility] CO2 Content,Arteri al 23 23 - 27 mmol/L 10/26/2024 6:23 AM EDT [facility] Base Excess, Arterial -5.4(L) -2.0 - 3.0 mmol/L 10/26/2024 6:23 AM EDT [facility] %HBO2, Arterial 94.6(L) 95.0 - 98.0 % 10/26/2024 6:23 AM EDT [facility] Carboxyhemoglo bin, Arterial 2.0 % 10/26/2024 6:23 AM EDT [facility] Comment: CARBOXYHEMOGLOBIN (CO) REFERENCE RANGES: Non-Smokers: <2 % Smokers: <8 % TOXIC: >20 % Methemoglobin, Arterial 1.6(H) 0.0 - 1.5 % 10/26/2024 6:23 AM EDT [facility] Reduced hemoglobin, Arterial 1.8 0.0 - 5.0 % 10/26/2024 6:23 AM EDT [facility] Blood, Arterial 10/26/2024 6 :10 AM EDT 10/26/2024 6:20 AM EDT us Sveta Judge MD LAB BLOOD ORDERABLES Final Resu lt Performing Organization Address City/[facility]/ZIP Co de Phone Number [facility] [address] [facility]. [address] * Magnesium (10/26/2024 6:10 AM EDT) Magnesium 1.5 1.5 - 2.5 mg/dL 10/26/2024 7:09 AM EDT [facility] Plasma 10/26/2024 6:10 AM EDT 10/26/2024 6:23 AM EDT Sveta Judge MD LAB BLOOD ORDERABLES Final Resu lt Performing Organization Address City/[facility] Co de Phone Number [facility] [address] [facility]. [address] * (ABNORMAL) Hepatic Function Panel (10/26/2024 6:10 AM EDT) Total Bilirubin 6.2(H) 0.0 - 1.5 mg/dL 10/26/2024 7:11 AM EDT [facility] Bilirubin, Direct 5.26(H) 0.00 - 0.40 mg/dL 10/26/2024 7:11 AM EDT [facility] AST 1,071(H) 13 - 39 U/L 10/26/2024 7:11 AM EDT [facility] ALT 805(H) 7 - 52 U/L 10/26/2024 7:11 AM EDT [facility] Alkaline Phosphatase 55 36 - 125 U/L 10/26/2024 7:11 AM EDT [facility] Total Protein <3.0(L) 6.4 - 8.9 g/dL 10/26/2024 7:11 AM EDT [facility] Albumin 1.9(L) 3.5 - 5.7 g/dL 10/26/2024 7:11 AM EDT [facility] Bilirubin, Indirect 0.94 0.00 - 1.10 mg/dL 10/26/2024 7:11 AM EDT [facility] Plasma 10/26/2024 6:10 AM EDT 10/26/2024 6:23 AM EDT us Sveta Judge MD LAB BLOOD ORDERABLES Final Resu lt [facility] [address] [place] [id number], [facility] * (ABNORMAL) Renal Function Panel w/EGFR (10/26/2024 6:10 AM EDT) Sodium 141 133 - 146 mmol/L 10/26/2024 7:09 AM EDT [facility] Potassium 2.8(LL) 3.5 - 5.3 mmol/L 10/26/2024 7:09 AM EDT [facility] Comment:Critical value previ ously called. Chloride 106 98 - 110 mmol/L 10/26/2024 7:09 AM EDT [facility] CO2 25 21 - 33 mmol/L 10/26/2024 7:09 AM EDT [facility] Anion Gap 10 3 - 16 mmol/L 10/26/2024 7:09 AM EDT [facility] BUN 57(H) 7 - 25 mg/dL 10/26/2024 7:09 AM EDT [facility] Creatinine 2.70(H) 0.60 - 1.30 mg/dL 10/26/2024 7:09 AM EDT [facility] Glucose 210(H) 70 - 100 mg/dL 10/26/2024 7:09 AM EDT [facility] Calcium 8.7 8.6 - 10.3 mg/dL 10/26/2024 7:09 AM EDT [facility] Phosphorus 5.4(H) 2.1 - 4.7 mg/dL 10/26/2024 7:09 AM EDT [facility] Albumin 1.9(L) 3.5 - 5.7 g/dL 10/26/2024 7:11 AM EDT [facility] Osmolality, Calculated 314(H) 278 - 305 mOsm/kg 10/26/2024 7:09 AM EDT [facility] EGFR 29 10/26/2024 7:09 AM EDT [facility] Comment:As of 2021, the estimated [...] Disease. Am J Kidney Dis. 2020. Plasma 10/26/2024 6:10 AM EDT 10/26/2024 6:23 AM EDT us Sveta Judge MD LAB BLOOD ORDERABLES Final Resu lt [facility] [address] * (ABNORMAL) CBC (10/26/2024 6:10 AM EDT) WBC 14.8(H) 3.8 - 10.8 10E3/uL 10/26/2024 6:46 AM EDT [facility] RBC 4.04(L) 4.20 - 5.80 10E6/uL 10/26/2024 6:46 AM EDT [facility] Hemoglobin 12.7(L) 13.2 - 17.1 g/dL 10/26/2024 6:46 AM EDT [facility] Hematocrit 35.9(L) 38.5 - 50.0 % 10/26/2024 6:46 AM EDT [facility] MCV 89.0 80.0 - 100.0 fL 10/26/2024 6:46 AM EDT [facility] MCH 31.3 27.0 - 33.0 pg 10/26/2024 6:46 AM EDT [facility] MCHC 35.2 32.0 - 36.0 g/dL 10/26/2024 6:46 AM EDT [facility] RDW 19.7(H) 11.0 - 15.0 % 10/26/2024 6:46 AM EDT [facility] Platelets 107(L) 140 - 400 10E3/uL 10/26/2024 6:46 AM EDT [facility] MPV 7.4(L) 7.5 - 11.5 fL 10/26/2024 6:46 AM EDT [facility] Whole Blood 10/26/2024 6:10 AM EDT 10/26/2024 6:26 AM EDT Sveta Judge MD LAB BLOOD ORDERABLES Final Resu lt [facility] [address] [place] [address], [facility] * (ABNORMAL) POC INR (10/26/2024 5:16 AM EDT) Pathologist [facility] Prothrombin Time INR, POC 2.4(H) 0.8 - 1.4 10/27/2024 6:51 AM EDT [facility] Comment: Test results may vary using different testing platforms. Serial result monitoring should be performed using the same methodology. RECOMMENDED THERAPEUTIC RANGES USING INR : Stable oral anticoagulant therapy: 2.0 - 3.0 Mechanical prosthetic heart valve: 2.5 - 3.5 Recurrent acute myocardial infarction: 2.5 - 3.5 Blood 10/26/2024 5:16 AM EDT 10/27/2024 6:51 AM EDT us Harvey Domínguez III, MD POINT OF CARE TEST ORDERABLES Final Result Performing Organization Address City/[facility] Co de Phone Number [facility] [address] [facility]. [address] * POC Sample Type (10/26/2024 5:14 AM EDT) POC Sample Type Arterial 10/26/2024 5:31 AM EDT [facility] Blood, Arterial 10/26/2024 5 :14 AM EDT 10/26/2024 5:31 AM EDT us Harvey Domínguez III, MD POINT OF CARE TEST ORDERABLES Final Result Performing Organization Address [facility] Co de Phone Number [facility] [id number] [facility]. [address] * POC Anion Gap (10/26/2024 5:14 AM EDT) POC Anion Gap, Arterial 12 3 - 16 mmol/L 10/26/2024 5:31 AM EDT [facility] Blood, Arterial 10/26/2024 5 :14 AM EDT 10/26/2024 5:31 AM EDT us Harvey Domínguez III, MD POINT OF CARE TEST ORDERABLES Final Result Performing Organization Address City/[facility] Co de Phone Number [facility] [address] [place] [address]. [address] * POC Chloride (10/26/2024 5:14 AM EDT) POC Chloride 104 98 - 110 mmol/L 10/26/2024 5:31 AM EDT [facility] Blood, Arterial 10/26/2024 5 :14 AM EDT 10/26/2024 5:31 AM EDT us Harvey Domínguez III, MD POINT OF CARE TEST ORDERABLES Final Result Performing Organization Address City/[facility] Co de Phone Number [facility] [address] [facility]. [address] * (ABNORMAL) POC Hemoglobin (10/26/2024 5:14 AM EDT) POC Hemoglobin 9.5(L) 14.0 - 18.0 g/dL 10/26/2024 5:31 AM EDT [facility] Blood, Arterial 10/26/2024 5 :14 AM EDT 10/26/2024 5:31 AM EDT us Harvey Domínguez III, MD POINT OF CARE TEST ORDERABLES Final Result Performing Organization Address [facility] Co de Phone Number [facility] [address] [place] [facility]. [address] * (ABNORMAL) POC hematocrit (10/26/2024 5:14 AM EDT) POC Hematocrit 28.0(L) 40 - 52 % 10/26/2024 5:31 AM EDT [facility] Blood, Arterial 10/26/2024 5 :14 AM EDT 10/26/2024 5:31 AM EDT us Harvey Domínguez III, MD POINT OF CARE TEST ORDERABLES Final Result Performing Organization Address [facility] Co de Phone Number [facility] [address] [facility]. [address] * POC Lactate (10/26/2024 5:14 AM EDT) POC Lactate 1.76 0.50 - 2.20 mmol/L 10/26/2024 5:31 AM EDT [facility] Blood, Arterial 10/26/2024 5 :14 AM EDT 10/26/2024 5:31 AM EDT us Harvey Domínguez III, MD POINT OF CARE TEST ORDERABLES Final Result [facility] [address] * (ABNORMAL) POC Glucose (10/26/2024 5:14 AM EDT) POC Glucose, Arterial 183(H) 70 - 100 mg/dL 10/26/2024 5:31 AM EDT [facility] Blood, Arterial 10/26/2024 5 :14 AM EDT 10/26/2024 5:31 AM EDT us Harvey Domínguez III, MD POINT OF CARE TEST ORDERABLES Final Result Performing Organization Address City/[facility]/ZIP Co de Phone Number [facility] [address] * (ABNORMAL) POC Ionized Calcium (10/26/2024 5:14 AM EDT) POC Ionized Calcium 5.50(H) 4.50 - 5.30 mg/dL 10/26/2024 5:31 AM EDT [facility] Blood, Arterial 10/26/2024 5 :14 AM EDT 10/26/2024 5:31 AM EDT us Harvey Domínguez III, MD POINT OF CARE TEST ORDERABLES Final Result Performing Organization Address [facility] Co de Phone Number [facility] [address] [facility]. [address] * (ABNORMAL) POC Potassium (10/26/2024 5:14 AM EDT) POC Potassium 2.8(LL) 3.5 - 5.3 mmol/L 10/26/2024 5:31 AM EDT [facility] Blood, Arterial 10/26/2024 5 :14 AM EDT 10/26/2024 5:31 AM EDT us Harvey Domínguez III, MD POINT OF CARE TEST ORDERABLES Final Result [facility] [address] * POC Sodium (10/26/2024 5:14 AM EDT) POC Sodium 138 136 - 146 mmol/L 10/26/2024 5:31 AM EDT [facility] Blood, Arterial 10/26/2024 5 :14 AM EDT 10/26/2024 5:31 AM EDT Harvey Domínguez III, MD POINT OF CARE TEST ORDERABLES Final Result [facility] [address] * POC TCO2 (10/26/2024 5:14 AM EDT) POC TCO2, Arterial 23 23 - 27 mmol/L 10/26/2024 5:31 AM EDT [facility] Blood, Arterial 10/26/2024 5 :14 AM EDT 10/26/2024 5:31 AM EDT us Harvey Domínguez III, MD POINT OF CARE TEST ORDERABLES Final Result Performing Organization Address [facility]/State/ZIP Co de Phone Number [facility] [address] * (ABNORMAL) POC O2 SAT (10/26/2024 5:14 AM EDT) POC O2 Saturation, Arterial 99(H) 95 - 98 % 10/26/2024 5:31 AM EDT [facility] Blood, Arterial 10/26/2024 5 :14 AM EDT 10/26/2024 5:31 AM EDT us Harvey Domínguez III, MD POINT OF CARE TEST ORDERABLES Final Result [facility] [address] * (ABNORMAL) POC Base Excess (10/26/2024 5:14 AM EDT) POC Base Excess, Arterial -5(L) -2 - 3 mmol/L 10/26/2024 5:31 AM EDT [facility] Blood, Arterial 10/26/2024 5 :14 AM EDT 10/26/2024 5:31 AM EDT Harvey Domínguez III, MD POINT OF CARE TEST ORDERABLES Final Result [facility] [address] * POC HCO3 (10/26/2024 5:14 AM EDT) POC HCO3, Arterial 22 22 - 26 mmol/L 10/26/2024 5:31 AM EDT [facility] Blood, Arterial 10/26/2024 5 :14 AM EDT 10/26/2024 5:31 AM EDT Harvey Domínguez III, MD POINT OF CARE TEST ORDERABLES Final Result Performing Organization Address [facility] Co de Phone Number [facility] [address] [facility]. [address] * (ABNORMAL) POC PO2 (10/26/2024 5:14 AM EDT) POC pO2, Arterial 133(H) 80 - 100 mm Hg 10/26/2024 5:31 AM EDT [facility] Blood, Arterial 10/26/2024 5 :14 AM EDT 10/26/2024 5:31 AM EDT Harvey Domínguez III, MD POINT OF CARE TEST ORDERABLES Final Result Performing Organization Address City/[facility]/ZIP Co de Phone Number [facility] [address] * POC PCO2 (10/26/2024 5:14 AM EDT) POC pCO2, Arterial 45 35 - 45 mm Hg 10/26/2024 5:31 AM EDT [facility] Blood, Arterial 10/26/2024 5 :14 AM EDT 10/26/2024 5:31 AM EDT Harvey Domínguez III, MD POINT OF CARE TEST ORDERABLES Final Result Performing Organization Address [facility] Co de Phone Number [facility] [address] [facility]. [address] * (ABNORMAL) POC pH (10/26/2024 5:14 AM EDT) Pathologist [facility] POC pH, Arterial 7.29(L) 7.35 - 7.45 10/26/2024 5:31 AM EDT [facility] Blood, Arterial 10/26/2024 5 :14 AM EDT 10/26/2024 5:31 AM EDT Harvey Domínguez III, MD POINT OF CARE TEST ORDERABLES Final Result Performing Organization Address [facility] de Phone Number [facility] [address] [facility]. [address] * Transfuse Cryoprecipitate (10/26/2024 4:37 AM EDT) Result [facility] Eber Quinones MD NURSING TREATMENT ORDERA BLES - BLOOD ADMIN Final Result * Transfuse Cryoprecipitate (10/26/2024 4:37 AM EDT) Eber Quinones MD NURSING TREATMENT ORDERA BLES - BLOOD ADMIN Final Result * (ABNORMAL) POC INR (10/26/2024 4:27 AM EDT) Prothrombin Time INR, POC 2.3(H) 0.8 - 1.4 10/27/2024 6:51 AM EDT [facility] Comment: Test results may vary using different testing platforms. Serial result monitoring should be performed using the same methodology. RECOMMENDED THERAPEUTIC RANGES USING INR : Stable oral anticoagulant therapy: 2.0 - 3.0 Mechanical prosthetic heart valve: 2.5 - 3.5 Recurrent acute myocardial infarction: 2.5 - 3.5 Blood 10/26/2024 4:27 AM EDT 10/27/2024 6:51 AM EDT us Harvey Domínguez III, MD POINT OF CARE TEST ORDERABLES Final Result [facility] [address] [address] * POC Sample Type (10/26/2024 4:24 AM EDT) POC Sample Type Arterial 10/26/2024 5:09 AM EDT [facility] Blood, Arterial 10/26/2024 4 :24 AM EDT 10/26/2024 5:09 AM EDT Harvey Domínguez III, MD POINT OF CARE TEST ORDERABLES Final Result Performing Organization Address [facility] Co de Phone Number [facility] [address] [facility]. [address] * POC Anion Gap (10/26/2024 4:24 AM EDT) POC Anion Gap, Arterial 14 3 - 16 mmol/L 10/26/2024 5:09 AM EDT [facility] Blood, Arterial 10/26/2024 4 :24 AM EDT 10/26/2024 5:09 AM EDT us Harvey Domínguez III, MD POINT OF CARE TEST ORDERABLES Final Result Performing Organization Address City/[facility] Co de Phone Number [facility] [address] [place] [address]. [address] * POC Chloride (10/26/2024 4:24 AM EDT) POC Chloride 103 98 - 110 mmol/L 10/26/2024 5:09 AM EDT [facility] Blood, Arterial 10/26/2024 4 :24 AM EDT 10/26/2024 5:09 AM EDT us Harvey Domínguez III, MD POINT OF CARE TEST ORDERABLES Final Result Performing Organization Address City/[facility]/ZIP Co de Phone Number [facility] [address] [facility]. [address] * (ABNORMAL) POC Hemoglobin (10/26/2024 4:24 AM EDT) POC Hemoglobin 10.3(L) 14.0 - 18.0 g/dL 10/26/2024 5:09 AM EDT [facility] Blood, Arterial 10/26/2024 4 :24 AM EDT 10/26/2024 5:09 AM EDT us Harvey Domínguez III, MD POINT OF CARE TEST ORDERABLES Final Result Performing Organization Address [facility] Co de Phone Number [facility] [address] [facility]. [address] * (ABNORMAL) POC hematocrit (10/26/2024 4:24 AM EDT) POC Hematocrit 30.0(L) 40 - 52 % 10/26/2024 5:09 AM EDT [facility] Blood, Arterial 10/26/2024 4 :24 AM EDT 10/26/2024 5:09 AM EDT us Harvey Domínguez III, MD POINT OF CARE TEST ORDERABLES Final Result Performing Organization Address City/[facility] Co de Phone Number [facility] [address] [facility]. [address] * (ABNORMAL) POC Lactate (10/26/2024 4:24 AM EDT) POC Lactate 2.43(H) 0.50 - 2.20 mmol/L 10/26/2024 5:09 AM EDT [facility] Blood, Arterial 10/26/2024 4 :24 AM EDT 10/26/2024 5:09 AM EDT us Harvey Domínguez III, MD POINT OF CARE TEST ORDERABLES Final Result Performing Organization Address City/[facility]/ZIP Co de Phone Number [facility] [address] [facility]. [address] * (ABNORMAL) POC Glucose (10/26/2024 4:24 AM EDT) POC Glucose, Arterial 185(H) 70 - 100 mg/dL 10/26/2024 5:09 AM EDT [facility] Blood, Arterial 10/26/2024 4 :24 AM EDT 10/26/2024 5:09 AM EDT us Harvey Domínguez III, MD POINT OF CARE TEST ORDERABLES Final Result Performing Organization Address [facility] Co de Phone Number [facility] [address] [facility]. [address] * POC Ionized Calcium (10/26/2024 4:24 AM EDT) POC Ionized Calcium 5.20 4.50 - 5.30 mg/dL 10/26/2024 5:09 AM EDT [facility] Blood, Arterial 10/26/2024 4 :24 AM EDT 10/26/2024 5:09 AM EDT us Harvey Domínguez III, MD POINT OF CARE TEST ORDERABLES Final Result Performing Organization Address City/[facility] Co de Phone Number [facility] [address] [facility]. [address] * (ABNORMAL) POC Potassium (10/26/2024 4:24 AM EDT) POC Potassium 2.8(LL) 3.5 - 5.3 mmol/L 10/26/2024 5:09 AM EDT [facility] Blood, Arterial 10/26/2024 4 :24 AM EDT 10/26/2024 5:09 AM EDT us Harvey Domínguez III, MD POINT OF CARE TEST ORDERABLES Final Result Performing Organization Address City/[facility]/ZIP Co de Phone Number [facility] [address] [facility]. [address] * POC Sodium (10/26/2024 4:24 AM EDT) POC Sodium 139 136 - 146 mmol/L 10/26/2024 5:09 AM EDT [facility] Blood, Arterial 10/26/2024 4 :24 AM EDT 10/26/2024 5:09 AM EDT us Harvey Domínguez III, MD POINT OF CARE TEST ORDERABLES Final Result Performing Organization Address [facility] Co de Phone Number [facility] [address] * POC TCO2 (10/26/2024 4:24 AM EDT) POC TCO2, Arterial 23 23 - 27 mmol/L 10/26/2024 5:09 AM EDT [facility] Blood, Arterial 10/26/2024 4 :24 AM EDT 10/26/2024 5:09 AM EDT Harvey Domínguez III, MD POINT OF CARE TEST ORDERABLES Final Result [facility] [address] [facility]. [address] * POC O2 SAT (10/26/2024 4:24 AM EDT) POC O2 Saturation, Arterial 96 95 - 98 % 10/26/2024 5:09 AM EDT [facility] Blood, Arterial 10/26/2024 4 :24 AM EDT 10/26/2024 5:09 AM EDT us Harvey Domínguez III, MD POINT OF CARE TEST ORDERABLES Final Result Performing Organization Address [facility] Co de Phone Number [facility] [address] * (ABNORMAL) POC Base Excess (10/26/2024 4:24 AM EDT) POC Base Excess, Arterial -5(L) -2 - 3 mmol/L 10/26/2024 5:09 AM EDT [facility] Blood, Arterial 10/26/2024 4 :24 AM EDT 10/26/2024 5:09 AM EDT us Harvey Domínguez III, MD POINT OF CARE TEST ORDERABLES Final Result Performing Organization Address [facility] Co de Phone Number [facility] [address]. [address] * POC HCO3 (10/26/2024 4:24 AM EDT) POC HCO3, Arterial 22 22 - 26 mmol/L 10/26/2024 5:09 AM EDT [facility] Blood, Arterial 10/26/2024 4 :24 AM EDT 10/26/2024 5:09 AM EDT us Harvey Domínguez III, MD POINT OF CARE TEST ORDERABLES Final Result Performing Organization Address City/[facility] Co de Phone Number [facility] [address] [facility]. [address] * POC PO2 (10/26/2024 4:24 AM EDT) POC pO2, Arterial 93 80 - 100 mm Hg 10/26/2024 5:09 AM EDT [facility] Blood, Arterial 10/26/2024 4 :24 AM EDT 10/26/2024 5:09 AM EDT Harvey Domínguez III, MD POINT OF CARE TEST ORDERABLES Final Result Performing Organization Address [facility] Co de Phone Number [facility] [address] [place] [address]. [address] * POC PCO2 (10/26/2024 4:24 AM EDT) POC pCO2, Arterial 44 35 - 45 mm Hg 10/26/2024 5:09 AM EDT [facility] Blood, Arterial 10/26/2024 4 :24 AM EDT 10/26/2024 5:09 AM EDT Harvey Domínguez III, MD POINT OF CARE TEST ORDERABLES Final Result Performing Organization Address [facility] Co de Phone Number [facility] [address] [place] [address]. [address] * (ABNORMAL) POC pH (10/26/2024 4:24 AM EDT) POC pH, Arterial 7.30(L) 7.35 - 7.45 10/26/2024 5:09 AM EDT [facility] Blood, Arterial 10/26/2024 4 :24 AM EDT 10/26/2024 5:09 AM EDT Harvey Domínguez III, MD POINT OF CARE TEST ORDERABLES Final Result Performing Organization Address [facility] Co de Phone Number [address] * Transfuse Platelets (10/26/2024 4:14 AM EDT) Ben Blake MD NURSING TREATMENT ORDERABLES - BLOOD ADMIN Final Result * Transfuse Fresh Frozen Plasma (10/26/2024 3:47 AM EDT) Ben Blake MD NURSING TREATMENT ORDERABLES - BLOOD ADMIN Final Result * (ABNORMAL) POC INR (10/26/2024 3:34 AM EDT) Prothrombin Time INR, POC 2.8(H) 0.8 - 1.4 10/27/2024 6:51 AM EDT [facility] Comment: Test results may vary using different testing platforms. Serial result monitoring should be performed using the same methodology. RECOMMENDED THERAPEUTIC RANGES USING INR : Stable oral anticoagulant therapy: 2.0 - 3.0 Mechanical prosthetic heart valve: 2.5 - 3.5 Recurrent acute myocardial infarction: 2.5 - 3.5 Blood 10/26/2024 3:34 AM EDT 10/27/2024 6:51 AM EDT us Harvey Domínguez III, MD POINT OF CARE TEST ORDERABLES Final Result Performing Organization Address City/[facility] Co de Phone Number [facility] [address] [facility]. [address] * POC Sample Type (10/26/2024 3:31 AM EDT) Pathologist [facility] POC Sample Type Arterial 10/26/2024 4:11 AM EDT [facility] Blood, Arterial 10/26/2024 3 :31 AM EDT 10/26/2024 4:11 AM EDT us Harvey Domínguez III, MD POINT OF CARE TEST ORDERABLES Final Result Performing Organization Address [facility] Co de Phone Number [facility] [address] * POC Anion Gap (10/26/2024 3:31 AM EDT) POC Anion Gap, Arterial 15 3 - 16 mmol/L 10/26/2024 4:11 AM EDT [facility] Blood, Arterial 10/26/2024 3 :31 AM EDT 10/26/2024 4:11 AM EDT us Harvey Domínguez III, MD POINT OF CARE TEST ORDERABLES Final Result Performing Organization Address City/[facility]/ZIP Co de Phone Number [facility] [address] * POC Chloride (10/26/2024 3:31 AM EDT) POC Chloride 105 98 - 110 mmol/L 10/26/2024 4:11 AM EDT [facility] Blood, Arterial 10/26/2024 3 :31 AM EDT 10/26/2024 4:11 AM EDT us Harvey Domínguez III, MD POINT OF CARE TEST ORDERABLES Final Result [facility] [address] * (ABNORMAL) POC Hemoglobin (10/26/2024 3:31 AM EDT) Pathologist [facility] POC Hemoglobin 9.7(L) 14.0 - 18.0 g/dL 10/26/2024 4:11 AM EDT [facility] Blood, Arterial 10/26/2024 3 :31 AM EDT 10/26/2024 4:11 AM EDT us Harvey Domínguez III, MD POINT OF CARE TEST ORDERABLES Final Result Performing Organization Address City/[facility]/ZIP Co de Phone Number [facility] [address] * (ABNORMAL) POC hematocrit (10/26/2024 3:31 AM EDT) Pathologist [facility] POC Hematocrit 29.0(L) 40 - 52 % 10/26/2024 4:11 AM EDT [facility] Blood, Arterial 10/26/2024 3 :31 AM EDT 10/26/2024 4:11 AM EDT us Harvey Domínguez III, MD POINT OF CARE TEST ORDERABLES Final Result [facility] [address] * (ABNORMAL) POC Lactate (10/26/2024 3:31 AM EDT) POC Lactate 3.54(H) 0.50 - 2.20 mmol/L 10/26/2024 4:11 AM EDT [facility] Blood, Arterial 10/26/2024 3 :31 AM EDT 10/26/2024 4:11 AM EDT us Harvey Domínguez III, MD POINT OF CARE TEST ORDERABLES Final Result Performing Organization Address City/[facility]/ZIP Co de Phone Number [facility] [address] [facility]. [address] * (ABNORMAL) POC Glucose (10/26/2024 3:31 AM EDT) POC Glucose, Arterial 153(H) 70 - 100 mg/dL 10/26/2024 4:11 AM EDT [facility] Blood, Arterial 10/26/2024 3 :31 AM EDT 10/26/2024 4:11 AM EDT us Harvey Domínguez III, MD POINT OF CARE TEST ORDERABLES Final Result Performing Organization Address [facility] Co de Phone Number [facility] [address] [facility]. [address] * POC Ionized Calcium (10/26/2024 3:31 AM EDT) POC Ionized Calcium 5.10 4.50 - 5.30 mg/dL 10/26/2024 4:11 AM EDT [facility] Blood, Arterial 10/26/2024 3 :31 AM EDT 10/26/2024 4:11 AM EDT us Harvey Domínguez III, MD POINT OF CARE TEST ORDERABLES Final Result Performing Organization Address City/[facility]/ZIP Co de Phone Number [facility] [address] [facility]. [address] * (ABNORMAL) POC Potassium (10/26/2024 3:31 AM EDT) POC Potassium 2.6(LL) 3.5 - 5.3 mmol/L 10/26/2024 4:11 AM EDT [facility] Blood, Arterial 10/26/2024 3 :31 AM EDT 10/26/2024 4:11 AM EDT us Harvey Domínguez III, MD POINT OF CARE TEST ORDERABLES Final Result [facility] [address] [facility]. [address] * POC Sodium (10/26/2024 3:31 AM EDT) POC Sodium 138 136 - 146 mmol/L 10/26/2024 4:11 AM EDT [facility] Blood, Arterial 10/26/2024 3 :31 AM EDT 10/26/2024 4:11 AM EDT us Harvey Domínguez III, MD POINT OF CARE TEST ORDERABLES Final Result Performing Organization Address [facility] Co de Phone Number [facility] [address] [facility]. [address] * (ABNORMAL) POC TCO2 (10/26/2024 3:31 AM EDT) POC TCO2, Arterial 19(L) 23 - 27 mmol/L 10/26/2024 4:11 AM EDT [facility] Blood, Arterial 10/26/2024 3 :31 AM EDT 10/26/2024 4:11 AM EDT us Harvey Domínguez III, MD POINT OF CARE TEST ORDERABLES Final Result Performing Organization Address City/[facility]/ZIP Co de Phone Number [facility] [address] [facility]. [address] * POC O2 SAT (10/26/2024 3:31 AM EDT) POC O2 Saturation, Arterial 97 95 - 98 % 10/26/2024 4:11 AM EDT [facility] Blood, Arterial 10/26/2024 3 :31 AM EDT 10/26/2024 4:11 AM EDT us Harvey Domínguez III, MD POINT OF CARE TEST ORDERABLES Final Result Performing Organization Address City/[facility]/ZIP Co de Phone Number [facility] [address] * (ABNORMAL) POC Base Excess (10/26/2024 3:31 AM EDT) POC Base Excess, Arterial -9(L) -2 - 3 mmol/L 10/26/2024 4:11 AM EDT [facility] Blood, Arterial 10/26/2024 3 :31 AM EDT 10/26/2024 4:11 AM EDT us Harvey Domínguez III, MD POINT OF CARE TEST ORDERABLES Final Result Performing Organization Address [facility] Co de Phone Number [facility] [address] [place] [address]. [address] * (ABNORMAL) POC HCO3 (10/26/2024 3:31 AM EDT) POC HCO3, Arterial 18(L) 22 - 26 mmol/L 10/26/2024 4:11 AM EDT [facility] Blood, Arterial 10/26/2024 3 :31 AM EDT 10/26/2024 4:11 AM EDT us Harvey Domínguez III, MD POINT OF CARE TEST ORDERABLES Final Result Performing Organization Address City/[facility] Co de Phone Number [facility] [address] [facility]. [address] * (ABNORMAL) POC PO2 (10/26/2024 3:31 AM EDT) POC pO2, Arterial 104(H) 80 - 100 mm Hg 10/26/2024 4:11 AM EDT [facility] Blood, Arterial 10/26/2024 3 :31 AM EDT 10/26/2024 4:11 AM EDT us Harvey Domínguez III, MD POINT OF CARE TEST ORDERABLES Final Result Performing Organization Address City/[facility] Co de Phone Number [facility] [address] [place] [address]. [address] * POC PCO2 (10/26/2024 3:31 AM EDT) POC pCO2, Arterial 42 35 - 45 mm Hg 10/26/2024 4:11 AM EDT [facility] Blood, Arterial 10/26/2024 3 :31 AM EDT 10/26/2024 4:11 AM EDT Harvey Domínguez III, MD POINT OF CARE TEST ORDERABLES Final Result Performing Organization Address [facility] de Phone Number [facility] [address] [facility]. [address] * (ABNORMAL) POC pH (10/26/2024 3:31 AM EDT) POC pH, Arterial 7.24(L) 7.35 - 7.45 10/26/2024 4:11 AM EDT [facility] Blood, Arterial 10/26/2024 3 :31 AM EDT 10/26/2024 4:11 AM EDT us Harvey Domínguez III, MD POINT OF CARE TEST ORDERABLES Final Result Performing Organization Address [facility] de Phone Number [facility] [address] [place] [address]. [address] * (ABNORMAL) TEG-Global With Lysis (Baseline TEG with LY30, Will NOT Show Heparin Effect) (53:31 AM EDT) Pathologist [facility] Citrated Kaolin Reaction Time (TEGLYSIS) 6.8 4.6 - 9.1 minutes 10/26/2024 5:02 AM EDT [facility] Citrated Rapid Teg Maximum Amplitude (TEGLYSIS) <40.0(L) 52.0 - 70.0 mm 10/26/2024 5:02 AM EDT [facility] Citrated Functional Fibrinogen Maximum Amplitude (TEGLYSIS) <4.0(L) 15.0 - 32.0 mm 10/26/2024 5:02 AM EDT [facility] Citrated Kaolin Percent Lysis (TEGLYSIS) 1.4 0.0 - 2.6 % 10/26/2024 5:02 AM EDT [facility] Whole Blood (Citrate) 10/26/2024 3:31 AM EDT 10/26/2024 3:40 AM EDT Eber Quinones MD LAB BLOOD ORDERABLES Fin al Result Performing Organization Address City/State/[facility] Co de Phone Number [facility] [address] * (ABNORMAL) CBC (10/26/2024 3:31 AM EDT) [facility] WBC 9.5 3.8 - 10.8 10E3/uL 10/26/2024 3:48 AM EDT [facility] RBC 3.68(L) 4.20 - 5.80 10E6/uL 10/26/2024 3:48 AM EDT [facility] Hemoglobin 11.5(L) 13.2 - 17.1 g/dL 10/26/2024 3:48 AM EDT [facility] Hematocrit 33.0(L) 38.5 - 50.0 % 10/26/2024 3:48 AM EDT [facility] MCV 89.6 80.0 - 100.0 fL 10/26/2024 3:48 AM EDT [facility] MCH 31.1 27.0 - 33.0 pg 10/26/2024 3:48 AM EDT [facility] MCHC 34.8 32.0 - 36.0 g/dL 10/26/2024 3:48 AM EDT [facility] RDW 19.3(H) 11.0 - 15.0 % 10/26/2024 3:48 AM EDT [facility] Platelets 67(L) 140 - 400 10E3/uL 10/26/2024 3:48 AM EDT [facility] MPV 7.9 7.5 - 11.5 fL 10/26/2024 3:48 AM EDT [facility] Whole Blood 10/26/2024 3:31 AM EDT 10/26/2024 3:40 AM EDT Eber Quinones MD LAB BLOOD ORDERABLES Fin al Result Performing Organization Address [facility] de Phone Number [facility] [address] [facility]. [address] * (ABNORMAL) Protime-INR (10/26/2024 3:31 AM EDT) Protime 27.0(H) 12.1 - 15.1 seconds 10/26/2024 3:51 AM EDT [facility] INR 2.4(H) 0.9 - 1.1 10/26/2024 3:51 AM EDT [facility] Comment: RECOMMENDED THERAPEUTIC RANGES USING INR : Stable oral anticoagulant therapy: 2.0 - 3.0 Mechanical prosthetic heart valve: 2.5 - 3.5 Recurrent acute myocardial infarction: 2.5 - 3.5 Plasma 10/26/2024 3:31 AM EDT 10/26/2024 3:40 AM EDT Eber Quinones MD LAB BLOOD ORDERABLES Fin al Result Performing Organization Address [facility] Co de Phone Number [facility] [address] [facility]. [address] * (ABNORMAL) Fibrinogen (10/26/2024 3:31 AM EDT) Fibrinogen 104(L) 218 - 406 mg/dL 10/26/2024 3:56 AM EDT [facility] Plasma 10/26/2024 3:31 AM EDT 10/26/2024 3:40 AM EDT Eber Quinones MD LAB BLOOD ORDERABLES Fin al Result [facility] [address] [place] [address], [place] [facility] * Transfuse Fresh Frozen Plasma (10/26/2024 3:16 AM EDT) Ben Blake MD NURSING TREATMENT ORDERABLES - BLOOD ADMIN Final Result * Transfuse Fresh Frozen Plasma (10/26/2024 3:15 AM EDT) Ben Blake MD NURSING TREATMENT ORDERABLES - BLOOD ADMIN Final Result * Transfuse RBC (10/26/2024 3:14 AM EDT) us Ben Blake MD NURSING TREATMENT ORDERABLES - BLOOD ADMIN Final Result * Transfuse RBC (10/26/2024 3:14 AM EDT) Ben Blake MD NURSING TREATMENT ORDERABLES - BLOOD ADMIN Final Result * Transfuse RBC (10/26/2024 2:40 AM EDT) Ben Blake MD NURSING TREATMENT ORDERABLES - BLOOD ADMIN Final Result * Transfuse Fresh Frozen Plasma (10/26/2024 2:39 AM EDT) us Ben Blake MD NURSING TREATMENT ORDERABLES - BLOOD ADMIN Final Result * Transfuse Fresh Frozen Plasma (10/26/2024 2:24 AM EDT) us Ben Blake MD NURSING TREATMENT ORDERABLES - BLOOD ADMIN Final Result * Transfuse Fresh Frozen Plasma (10/26/2024 2:03 AM EDT) us Ben Blake MD NURSING TREATMENT ORDERABLES - BLOOD ADMIN Final Result * Transfuse RBC (10/26/2024 2:01 AM EDT) us Ben Blake MD NURSING TREATMENT ORDERABLES - BLOOD ADMIN Final Result * Transfuse RBC (10/26/2024 1:45 AM EDT) us Ben Blake MD NURSING TREATMENT ORDERABLES - BLOOD ADMIN Final Result * Transfuse RBC (10/26/2024 1:45 AM EDT) us Ben Blake MD NURSING TREATMENT ORDERABLES - BLOOD ADMIN Final Result * (ABNORMAL) POC INR (10/26/2024 1:43 AM EDT) Prothrombin Time INR, POC 1.9(H) 0.8 - 1.4 10/27/2024 6:51 AM EDT [facility] Comment: Test results may vary using different testing platforms. Serial result monitoring should be performed using the same methodology. RECOMMENDED THERAPEUTIC RANGES USING INR : Stable oral anticoagulant therapy: 2.0 - 3.0 Mechanical prosthetic heart valve: 2.5 - 3.5 Recurrent acute myocardial infarction: 2.5 - 3.5 Blood 10/26/2024 1:43 AM EDT 10/27/2024 6:51 AM EDT us Harvey Domínguez III, MD POINT OF CARE TEST ORDERABLES Final Result Performing Organization Address [facility] Co de Phone Number [facility] [address] * Transfuse Fresh Frozen Plasma (10/26/2024 1:41 AM EDT) us Ben Blake MD NURSING TREATMENT ORDERABLES - BLOOD ADMIN Final Result * Transfuse RBC (10/26/2024 1:40 AM EDT) us Ben Blake MD NURSING TREATMENT ORDERABLES - BLOOD ADMIN Final Result * POC Sample Type (10/26/2024 1:40 AM EDT) POC Sample Type Arterial 10/26/2024 2:32 AM EDT [facility] Blood, Arterial 10/26/2024 1 :40 AM EDT 10/26/2024 2:32 AM EDT us Harvey Domínguez III, MD POINT OF CARE TEST ORDERABLES Final Result Performing Organization Address City/[facility] Co de Phone Number [facility] [address] [id number], [place] * POC Anion Gap (10/26/2024 1:40 AM EDT) POC Anion Gap, Arterial 13 3 - 16 mmol/L 10/26/2024 2:32 AM EDT [facility] Blood, Arterial 10/26/2024 1 :40 AM EDT 10/26/2024 2:32 AM EDT us Harvey Domínguez III, MD POINT OF CARE TEST ORDERABLES Final Result [facility] [address] * POC Chloride (10/26/2024 1:40 AM EDT) Pathologist [facility] POC Chloride 104 98 - 110 mmol/L 10/26/2024 2:32 AM EDT [facility] Blood, Arterial 10/26/2024 1 :40 AM EDT 10/26/2024 2:32 AM EDT us Harvey Domínguez III, MD POINT OF CARE TEST ORDERABLES Final Result Performing Organization Address City/[facility]/ZIP Co de Phone Number [facility] [address] * (ABNORMAL) POC Hemoglobin (10/26/2024 1:40 AM EDT) Pathologist [facility] POC Hemoglobin 7.4(L) 14.0 - 18.0 g/dL 10/26/2024 2:32 AM EDT [facility] Blood, Arterial 10/26/2024 1 :40 AM EDT 10/26/2024 2:32 AM EDT us Harvey Domínguez III, MD POINT OF CARE TEST ORDERABLES Final Result Performing Organization Address City/[facility]/ZIP Co de Phone Number [facility] [address] * (ABNORMAL) POC hematocrit (10/26/2024 1:40 AM EDT) POC Hematocrit 22.0(L) 40 - 52 % 10/26/2024 2:32 AM EDT [facility] Blood, Arterial 10/26/2024 1 :40 AM EDT 10/26/2024 2:32 AM EDT us Harvey Domínguez III, MD POINT OF CARE TEST ORDERABLES Final Result Performing Organization Address City/[facility] Co de Phone Number [facility] [address] [facility]. [address] * (ABNORMAL) POC Lactate (10/26/2024 1:40 AM EDT) Pathologist [facility] POC Lactate 2.30(H) 0.50 - 2.20 mmol/L 10/26/2024 2:32 AM EDT [facility] Blood, Arterial 10/26/2024 1 :40 AM EDT 10/26/2024 2:32 AM EDT us Harvey Domínguez III, MD POINT OF CARE TEST ORDERABLES Final Result Performing Organization Address [facility] Co de Phone Number [facility] [address] [facility]. [address] * (ABNORMAL) POC Glucose (10/26/2024 1:40 AM EDT) POC Glucose, Arterial 116(H) 70 - 100 mg/dL 10/26/2024 2:32 AM EDT [facility] Blood, Arterial 10/26/2024 1 :40 AM EDT 10/26/2024 2:32 AM EDT us Harvey Domínguez III, MD POINT OF CARE TEST ORDERABLES Final Result Performing Organization Address City/[facility] Co de Phone Number [facility] [address] [facility]. [address] * (ABNORMAL) POC Ionized Calcium (10/26/2024 1:40 AM EDT) POC Ionized Calcium 4.10(L) 4.50 - 5.30 mg/dL 10/26/2024 2:32 AM EDT [facility] Blood, Arterial 10/26/2024 1 :40 AM EDT 10/26/2024 2:32 AM EDT us Harvey Domínguez III, MD POINT OF CARE TEST ORDERABLES Final Result Performing Organization Address City/[facility]/ZIP Co de Phone Number [facility] [address] [facility]. [address] * (ABNORMAL) POC Potassium (10/26/2024 1:40 AM EDT) Pathologist [facility] POC Potassium 2.6(LL) 3.5 - 5.3 mmol/L 10/26/2024 2:32 AM EDT [facility] Blood, Arterial 10/26/2024 1 :40 AM EDT 10/26/2024 2:32 AM EDT us Harvey Domínguez III, MD POINT OF CARE TEST ORDERABLES Final Result Performing Organization Address [facility] Co de Phone Number [facility] [address] [place] [address]. [address] * (ABNORMAL) POC Sodium (10/26/2024 1:40 AM EDT) Pathologist [facility] POC Sodium 135(L) 136 - 146 mmol/L 10/26/2024 2:32 AM EDT [facility] Blood, Arterial 10/26/2024 1 :40 AM EDT 10/26/2024 2:32 AM EDT us Harvey Domínguez III, MD POINT OF CARE TEST ORDERABLES Final Result Performing Organization Address City/[facility] Co de Phone Number [facility] [address] [facility]. [address] * (ABNORMAL) POC TCO2 (10/26/2024 1:40 AM EDT) POC TCO2, Arterial 19(L) 23 - 27 mmol/L 10/26/2024 2:32 AM EDT [facility] Blood, Arterial 10/26/2024 1 :40 AM EDT 10/26/2024 2:32 AM EDT us Harvey Domínguez III, MD POINT OF CARE TEST ORDERABLES Final Result Performing Organization Address City/[facility]/ZIP Co de Phone Number [facility] [address] * (ABNORMAL) POC O2 SAT (10/26/2024 1:40 AM EDT) POC O2 Saturation, Arterial 99(H) 95 - 98 % 10/26/2024 2:32 AM EDT [facility] Blood, Arterial 10/26/2024 1 :40 AM EDT 10/26/2024 2:32 AM EDT us Harvey Domínguez III, MD POINT OF CARE TEST ORDERABLES Final Result Performing Organization Address [facility] Co de Phone Number [facility] [address] [facility]. [address] * (ABNORMAL) POC Base Excess (10/26/2024 1:40 AM EDT) POC Base Excess, Arterial -7(L) -2 - 3 mmol/L 10/26/2024 2:32 AM EDT [facility] Blood, Arterial 10/26/2024 1 :40 AM EDT 10/26/2024 2:32 AM EDT us Harvey Domínguez III, MD POINT OF CARE TEST ORDERABLES Final Result Performing Organization Address City/[facility] Co de Phone Number [facility] [address] [facility]. [address] * (ABNORMAL) POC HCO3 (10/26/2024 1:40 AM EDT) POC HCO3, Arterial 18(L) 22 - 26 mmol/L 10/26/2024 2:32 AM EDT [facility] Blood, Arterial 10/26/2024 1 :40 AM EDT 10/26/2024 2:32 AM EDT us Harvey Domínguez III, MD POINT OF CARE TEST ORDERABLES Final Result Performing Organization Address City/[facility] Co de Phone Number [facility] [address] [facility]. [address] * (ABNORMAL) POC PO2 (10/26/2024 1:40 AM EDT) POC pO2, Arterial 145(H) 80 - 100 mm Hg 10/26/2024 2:32 AM EDT [facility] Blood, Arterial 10/26/2024 1 :40 AM EDT 10/26/2024 2:32 AM EDT us Harvey Domínguez III, MD POINT OF CARE TEST ORDERABLES Final Result Performing Organization Address [facility] Co de Phone Number [facility] [address] [place] [address]. [address] * (ABNORMAL) POC PCO2 (10/26/2024 1:40 AM EDT) POC pCO2, Arterial 33(L) 35 - 45 mm Hg 10/26/2024 2:32 AM EDT [facility] Blood, Arterial 10/26/2024 1 :40 AM EDT 10/26/2024 2:32 AM EDT us Harvey Domínguez III, MD POINT OF CARE TEST ORDERABLES Final Result Performing Organization Address City/[facility] Co de Phone Number [facility] [address] [facility]. [address] * POC pH (10/26/2024 1:40 AM EDT) POC pH, Arterial 7.35 7.35 - 7.45 10/26/2024 2:32 AM EDT [facility] Blood, Arterial 10/26/2024 1 :40 AM EDT 10/26/2024 2:32 AM EDT us Harvey Domínguez III, MD POINT OF CARE TEST ORDERABLES Final Result Performing Organization Address City/[facility]/ZIP Co de Phone Number [facility] [address] * Transfuse Fresh Frozen Plasma (10/26/2024 1:20 AM EDT) us Ben Blake MD NURSING TREATMENT ORDERABLES - BLOOD ADMIN Final Result * Transfuse RBC (10/26/2024 12:56 AM EDT) us Ben Blake MD NURSING TREATMENT ORDERABLES - BLOOD ADMIN Final Result * (ABNORMAL) POC INR (10/26/2024 12:41 AM EDT) Pathologist [facility] Prothrombin Time INR, POC 2.0(H) 0.8 - 1.4 10/27/2024 6:51 AM EDT [facility] Comment: Test results may vary using different testing platforms. Serial result monitoring should be performed using the same methodology. RECOMMENDED THERAPEUTIC RANGES USING INR : Stable oral anticoagulant therapy: 2.0 - 3.0 Mechanical prosthetic heart valve: 2.5 - 3.5 Recurrent acute myocardial infarction: 2.5 - 3.5 Blood 10/26/2024 12:4 1 AM EDT 10/27/2024 6:51 AM EDT us Harvey Domínguez III, MD POINT OF CARE TEST ORDERABLES Final Result Performing Organization Address City/[facility] Co de Phone Number [facility] [address] * POC Sample Type (10/26/2024 12:39 AM EDT) POC Sample Type Arterial 10/26/2024 1:38 AM EDT [facility] Blood, Arterial 10/26/2024 1 2:39 AM EDT 10/26/2024 1:38 AM EDT us Harvey Domínguez III, MD POINT OF CARE TEST ORDERABLES Final Result Performing Organization Address City/[facility] Co de Phone Number [facility] [address] [facility]. [address] * POC Anion Gap (10/26/2024 12:39 AM EDT) POC Anion Gap, Arterial 13 3 - 16 mmol/L 10/26/2024 1:38 AM EDT [facility] Blood, Arterial 10/26/2024 1 2:39 AM EDT 10/26/2024 1:38 AM EDT us Harvey Domínguez III, MD POINT OF CARE TEST ORDERABLES Final Result Performing Organization Address [facility] Co de Phone Number [facility] [address] [facility]. [address] * POC Chloride (10/26/2024 12:39 AM EDT) POC Chloride 103 98 - 110 mmol/L 10/26/2024 1:38 AM EDT [facility] Blood, Arterial 10/26/2024 1 2:39 AM EDT 10/26/2024 1:38 AM EDT us Harvey Domínguez III, MD POINT OF CARE TEST ORDERABLES Final Result Performing Organization Address City/[facility] Co de Phone Number [facility] [address] [facility]. [address] * (ABNORMAL) POC Hemoglobin (10/26/2024 12:39 AM EDT) POC Hemoglobin 7.9(L) 14.0 - 18.0 g/dL 10/26/2024 1:38 AM EDT [facility] Blood, Arterial 10/26/2024 1 2:39 AM EDT 10/26/2024 1:38 AM EDT us Harvey Domínguez III, MD POINT OF CARE TEST ORDERABLES Final Result Performing Organization Address [facility] Co de Phone Number [facility] [address] [facility]. [address] * (ABNORMAL) POC hematocrit (10/26/2024 12:39 AM EDT) POC Hematocrit 23.0(L) 40 - 52 % 10/26/2024 1:38 AM EDT [facility] Blood, Arterial 10/26/2024 1 2:39 AM EDT 10/26/2024 1:38 AM EDT us Harvey Domínguez III, MD POINT OF CARE TEST ORDERABLES Final Result Performing Organization Address [facility] Co de Phone Number [facility] [address] [facility]. [address] * POC Lactate (10/26/2024 12:39 AM EDT) Pathologist [facility] POC Lactate 1.39 0.50 - 2.20 mmol/L 10/26/2024 1:38 AM EDT [facility] Blood, Arterial 10/26/2024 1 2:39 AM EDT 10/26/2024 1:38 AM EDT us Harvey Domínguez III, MD POINT OF CARE TEST ORDERABLES Final Result Performing Organization Address City/[facility] Co de Phone Number [facility] [address] * (ABNORMAL) POC Glucose (10/26/2024 12:39 AM EDT) POC Glucose, Arterial 116(H) 70 - 100 mg/dL 10/26/2024 1:38 AM EDT [facility] Blood, Arterial 10/26/2024 1 2:39 AM EDT 10/26/2024 1:38 AM EDT us Harvey Domínguez III, MD POINT OF CARE TEST ORDERABLES Final Result Performing Organization Address City/[facility]/ZIP Co de Phone Number [facility] [address] * (ABNORMAL) POC Ionized Calcium (10/26/2024 12:39 AM EDT) POC Ionized Calcium 4.30(L) 4.50 - 5.30 mg/dL 10/26/2024 1:38 AM EDT [facility] Blood, Arterial 10/26/2024 1 2:39 AM EDT 10/26/2024 1:38 AM EDT us Harvey Domínguez III, MD POINT OF CARE TEST ORDERABLES Final Result Performing Organization Address City/[facility] Co de Phone Number [facility] [address] [facility]. [address] * (ABNORMAL) POC Potassium (10/26/2024 12:39 AM EDT) Pathologist [facility] POC Potassium 2.4(LL) 3.5 - 5.3 mmol/L 10/26/2024 1:38 AM EDT [facility] Blood, Arterial 10/26/2024 1 2:39 AM EDT 10/26/2024 1:38 AM EDT us Harvey Domínguez III, MD POINT OF CARE TEST ORDERABLES Final Result Performing Organization Address City/[facility] Co de Phone Number [facility] [address] [facility]. [address] * POC Sodium (10/26/2024 12:39 AM EDT) POC Sodium 136 136 - 146 mmol/L 10/26/2024 1:38 AM EDT [facility] Blood, Arterial 10/26/2024 1 2:39 AM EDT 10/26/2024 1:38 AM EDT us Harvey Domínguez III, MD POINT OF CARE TEST ORDERABLES Final Result Performing Organization Address City/[facility]/ZIP Co de Phone Number [facility] [address] * (ABNORMAL) POC TCO2 (10/26/2024 12:39 AM EDT) POC TCO2, Arterial 21(L) 23 - 27 mmol/L 10/26/2024 1:38 AM EDT [facility] Blood, Arterial 10/26/2024 1 2:39 AM EDT 10/26/2024 1:38 AM EDT us Harvey Domínguez III, MD POINT OF CARE TEST ORDERABLES Final Result Performing Organization Address [facility] Co de Phone Number [facility] [address] [facility]. [address] * POC O2 SAT (10/26/2024 12:39 AM EDT) POC O2 Saturation, Arterial 98 95 - 98 % 10/26/2024 1:38 AM EDT [facility] Blood, Arterial 10/26/2024 1 2:39 AM EDT 10/26/2024 1:38 AM EDT us Harvey Domínguez III, MD POINT OF CARE TEST ORDERABLES Final Result Performing Organization Address City/[facility]/ZIP Co de Phone Number [facility] [address] * (ABNORMAL) POC Base Excess (10/26/2024 12:39 AM EDT) POC Base Excess, Arterial -7(L) -2 - 3 mmol/L 10/26/2024 1:38 AM EDT [facility] Blood, Arterial 10/26/2024 1 2:39 AM EDT 10/26/2024 1:38 AM EDT Harvey Domínguez III, MD POINT OF CARE TEST ORDERABLES Final Result Performing Organization Address [facility] Co de Phone Number [facility] [address] * (ABNORMAL) POC HCO3 (10/26/2024 12:39 AM EDT) POC HCO3, Arterial 20(L) 22 - 26 mmol/L 10/26/2024 1:38 AM EDT [facility] Blood, Arterial 10/26/2024 1 2:39 AM EDT 10/26/2024 1:38 AM EDT Harvey Domínguez III, MD POINT OF CARE TEST ORDERABLES Final Result Performing Organization Address [facility] Co de Phone Number [facility] [address] [facility]. [address] * (ABNORMAL) POC PO2 (10/26/2024 12:39 AM EDT) POC pO2, Arterial 117(H) 80 - 100 mm Hg 10/26/2024 1:38 AM EDT [facility] Blood, Arterial 10/26/2024 1 2:39 AM EDT 10/26/2024 1:38 AM EDT Harvey Domínguez III, MD POINT OF CARE TEST ORDERABLES Final Result Performing Organization Address [facility] Co de Phone Number [facility] [address] * (ABNORMAL) POC PCO2 (10/26/2024 12:39 AM EDT) POC pCO2, Arterial 46(H) 35 - 45 mm Hg 10/26/2024 1:38 AM EDT [facility] Blood, Arterial 10/26/2024 1 2:39 AM EDT 10/26/2024 1:38 AM EDT Harvey Domínguez III, MD POINT OF CARE TEST ORDERABLES Final Result Performing Organization Address City/[facility]/ZIP Co de Phone Number [facility] [address] * (ABNORMAL) POC pH (10/26/2024 12:39 AM EDT) POC pH, Arterial 7.24(L) 7.35 - 7.45 10/26/2024 1:38 AM EDT [facility] Blood, Arterial 10/26/2024 1 2:39 AM EDT 10/26/2024 1:38 AM EDT Harvey Domínguez III, MD POINT OF CARE TEST ORDERABLES Final Result Performing Organization Address [facility] Co de Phone Number [facility] [address] * Transfuse Platelets (10/26/2024 12:37 AM EDT) Ben Blake MD NURSING TREATMENT ORDERABLES - BLOOD ADMIN Final Result * Transfuse RBC (10/26/2024 12:31 AM EDT) Ben Blake MD NURSING TREATMENT ORDERABLES - BLOOD ADMIN Final Result * Transfuse Fresh Frozen Plasma (10/26/2024 12:28 AM EDT) Ben Blake MD NURSING TREATMENT ORDERABLES - BLOOD ADMIN Final Result * Transfuse Fresh Frozen Plasma (10/26/2024 12:28 AM EDT) Ben Blake MD NURSING TREATMENT ORDERABLES - BLOOD ADMIN Final Result * Routine Culture plus Stain (10/26/2024 12:03 AM EDT) Gram Stain Result Cytospin Results: [facility] Gram Stain Result Polymorphonuclear Leukocytes Seen; [facility] Gram Stain Result No Organisms Seen; [facility] Culture Result No Growth After 3 Days [facility] Surgical Swab ABDOMEN / Unknown 12:03 AM EDT Comment:2.) Ascites Anaerobhic culture Fungus culture Routine culture plus stain Narrative [facility] - 10/28/2024 9:38 PM EDT 2.) Ascites Anaerobhic culture Fungus culture Routine culture plus stain 2.) Ascites Harvey Domínguez III, MD MICROBIOLOGY - GENE RAL ORDERABLES Final Result [facility] [address] [place] [address], [facility] * Surgical Pathology Exam (10/26/2024 12:00 AM EDT) 10/26/2024 10/27/2024 Narrative [facility] - 10/26/2024 12:00 AM EDT CASE: [id number] PATIENT: BLAIR GILBERT Clinical History: Liver - kidney transplant Pre-Operative Diagnosis: Alcoholic cirrhosis of liver Post-Operative Diagnosis: Alcoholic cirrhosis of liver Specimen(s) Submitted: [facility]. [facility] CPT Code(s): 68164 X 1; 73224 X 5 Additional Information: FINAL DIAGNOSIS: A. 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 - Negative for neoplasm. - Increased hepatocellular iron deposition (3+; Modified Scheuer). Gall bladder: -Intramucosal and submucosal vascular congestion and hemorrhage. - Negative for dysplasia or malignancy. Gross Description: Received in formalin, labeled Blair Glibert and [place] [facility] , is a 2338-gram, hepatectomy specimen including liver (25.5 cm medial to lateral x 18.5 cm anterior to posterior x 13.0 cm superior to inferior) and gallbladder (10.5 x 6.3 x 6.3 cm). The gallbladder serosa is canseco-georges with a recently closed defect in the fundus measuring 0.8 x 0.8 cm. The lumen contains viscous hemorrhagic bile and four round, coarsely granular black calculi ranging from 0.5 to 0.6 cm in greatest dimension, collectively 1.7 x 0.8 x 0.5 cm. No calculi are identified within the cystic duct; a cystic duct lymph node is not identified. The mucosa is diffusely hemorrhagic with a trabeculated surface. The wall ranges from 0.2 to 0.4 cm in thickness. The liver capsule is georges-brown and diffusely nodular (0.1 to 0.5 cm in greatest dimension). Serially sectioning medial to lateral reveals diffusely nodular orange-brown parenchyma; no discrete masses or other lesions are identified. Registered Nurse Step Down sections are submitted in cassettes [id number] as follows: A1: Hilar margins, en face. A2: Cystic duct margin (en face), neck, body, and fundus. A3-A5: Right lobe ( liver is A3). A6-A8: Left lobe. (NAA Ruiz/gr) Microscopic Description: Trichrome stain highlights fibrous bands around regenerative nodules. Reticulin stain does not show additional pathologic change. Iron stain shows increased hepatocellular iron deposition. PASd does not show diagnostic intracytoplasmic globules. Copper stain shows patchy chronic cholestasis. I, the attending pathologist, have personally reviewed all prosector/resident work and pathology slides to determine final diagnosis. Control Materials Reacted Appropriately. Final Diagnosis performed by CLARE FALL MD Pathologist Electronically signed 10/29/2024 12:49:44 PM The Pathologist signing this report is located at [facility], [address] [place] [address], [facility] [phone], CLIA ID: [id number] Harvey Domínguez III, MD PATHOLOGY/CYTOLOGY ORDERABLES Final Result [facility] * Transfuse Fresh Frozen Plasma (10/25/2024 11:47 PM EDT) Ben Blake MD NURSING TREATMENT ORDERABLES - BLOOD ADMIN Final Result * Transfuse RBC (10/25/2024 11:45 PM EDT) Ben Blake MD NURSING TREATMENT ORDERABLES - BLOOD ADMIN Final Result * Transfuse RBC (10/25/2024 11:45 PM EDT) Ben Blake MD NURSING TREATMENT ORDERABLES - BLOOD ADMIN Final Result * (ABNORMAL) POC INR (10/25/2024 11:43 PM EDT) [facility] Prothrombin Time INR, POC 1.7(H) 0.8 - 1.4 10/27/2024 6:51 AM EDT [facility] Comment: Test results may vary using different testing platforms. Serial result monitoring should be performed using the same methodology. RECOMMENDED THERAPEUTIC RANGES USING INR : Stable oral anticoagulant therapy: 2.0 - 3.0 Mechanical prosthetic heart valve: 2.5 - 3.5 Recurrent acute myocardial infarction: 2.5 - 3.5 Blood 10/25/2024 11:4 3 PM EDT 10/27/2024 6:51 AM EDT Harvey Domínguez III, MD POINT OF CARE TEST ORDERABLES Final Result Performing Organization Address City/[facility]/ZIP Co de Phone Number [facility] [address] * POC Sample Type (10/25/2024 11:40 PM EDT) [facility] POC Sample Type Arterial 10/25/2024 11:57 PM EDT [facility] Blood, Arterial 10/25/2024 1 1:40 PM EDT 10/25/2024 11:57 PM EDT Harvey Domínguez III, MD POINT OF CARE TEST ORDERABLES Final Result [facility] [address] * POC Anion Gap (10/25/2024 11:40 PM EDT) [facility] POC Anion Gap, Arterial 13 3 - 16 mmol/L 10/25/2024 11:57 PM EDT [facility] Blood, Arterial 10/25/2024 1 1:40 PM EDT 10/25/2024 11:57 PM EDT Harvey Domínguez III, MD POINT OF CARE TEST ORDERABLES Final Result Performing Organization Address City/[facility] Co de Phone Number [facility] [address] * POC Chloride (10/25/2024 11:40 PM EDT) POC Chloride 102 98 - 110 mmol/L 10/25/2024 11:57 PM EDT [facility] Blood, Arterial 10/25/2024 1 1:40 PM EDT 10/25/2024 11:57 PM EDT Harvey Domínguez III, MD POINT OF CARE TEST ORDERABLES Final Result Performing Organization Address [facility] Co de Phone Number [facility] [address] [facility]. [address] * (ABNORMAL) POC Hemoglobin (10/25/2024 11:40 PM EDT) POC Hemoglobin 6.6(L) 14.0 - 18.0 g/dL 10/25/2024 11:57 PM EDT [facility] Blood, Arterial 10/25/2024 1 1:40 PM EDT 10/25/2024 11:57 PM EDT Harvey Domínguez III, MD POINT OF CARE TEST ORDERABLES Final Result Performing Organization Address [facility] Co de Phone Number [facility] [address] * (ABNORMAL) POC hematocrit (10/25/2024 11:40 PM EDT) POC Hematocrit 19.0(L) 40 - 52 % 10/25/2024 11:57 PM EDT [facility] Blood, Arterial 10/25/2024 1 1:40 PM EDT 10/25/2024 11:57 PM EDT us Harvey Domínguez III, MD POINT OF CARE TEST ORDERABLES Final Result [facility] [address] * POC Lactate (10/25/2024 11:40 PM EDT) POC Lactate 1.36 0.50 - 2.20 mmol/L 10/25/2024 11:57 PM EDT [facility] Blood, Arterial 10/25/2024 1 1:40 PM EDT 10/25/2024 11:57 PM EDT Harvey Domínguez III, MD POINT OF CARE TEST ORDERABLES Final Result Performing Organization Address City/[facility] Co de Phone Number [facility] [address] * (ABNORMAL) POC Glucose (10/25/2024 11:40 PM EDT) POC Glucose, Arterial 101(H) 70 - 100 mg/dL 10/25/2024 11:57 PM EDT [facility] Blood, Arterial 10/25/2024 1 1:40 PM EDT 10/25/2024 11:57 PM EDT Harvey Domínguez III, MD POINT OF CARE TEST ORDERABLES Final Result [facility] [address] * POC Ionized Calcium (10/25/2024 11:40 PM EDT) POC Ionized Calcium 4.50 4.50 - 5.30 mg/dL 10/25/2024 11:57 PM EDT [facility] Blood, Arterial 10/25/2024 1 1:40 PM EDT 10/25/2024 11:57 PM EDT us Harvey Domínguez III, MD POINT OF CARE TEST ORDERABLES Final Result Performing Organization Address [facility] Co de Phone Number [address] * (ABNORMAL) POC Potassium (10/25/2024 11:40 PM EDT) POC Potassium 1.9(LL) 3.5 - 5.3 mmol/L 10/25/2024 11:57 PM EDT [facility] Blood, Arterial 10/25/2024 1 1:40 PM EDT 10/25/2024 11:57 PM EDT Harvey Domínguez III, MD POINT OF CARE TEST ORDERABLES Final Result Performing Organization Address [facility] Co de Phone Number [address] * (ABNORMAL) POC Sodium (10/25/2024 11:40 PM EDT) POC Sodium 135(L) 136 - 146 mmol/L 10/25/2024 11:57 PM EDT [facility] Blood, Arterial 10/25/2024 1 1:40 PM EDT 10/25/2024 11:57 PM EDT Harvey Domínguez III, MD POINT OF CARE TEST ORDERABLES Final Result Performing Organization Address City/[facility] Co de Phone Number [address] [facility]. [address] * (ABNORMAL) POC TCO2 (10/25/2024 11:40 PM EDT) POC TCO2, Arterial 21(L) 23 - 27 mmol/L 10/25/2024 11:57 PM EDT [facility] Blood, Arterial 10/25/2024 1 1:40 PM EDT 10/25/2024 11:57 PM EDT us Harvey Domínguez III, MD POINT OF CARE TEST ORDERABLES Final Result Performing Organization Address City/[facility]/ZIP Co de Phone Number [facility] [address] [place] [address]. [address] * POC O2 SAT (10/25/2024 11:40 PM EDT) POC O2 Saturation, Arterial 98 95 - 98 % 10/25/2024 11:57 PM EDT [facility] Blood, Arterial 10/25/2024 1 1:40 PM EDT 10/25/2024 11:57 PM EDT Harvey Domínguez III, MD POINT OF CARE TEST ORDERABLES Final Result Performing Organization Address [facility] Co de Phone Number [address] * (ABNORMAL) POC Base Excess (10/25/2024 11:40 PM EDT) POC Base Excess, Arterial -6(L) -2 - 3 mmol/L 10/25/2024 11:57 PM EDT [facility] Blood, Arterial 10/25/2024 1 1:40 PM EDT 10/25/2024 11:57 PM EDT Harvey Domínguez III, MD POINT OF CARE TEST ORDERABLES Final Result Performing Organization Address City/[facility]/ZIP Co de Phone Number [address] * (ABNORMAL) POC HCO3 (10/25/2024 11:40 PM EDT) POC HCO3, Arterial 20(L) 22 - 26 mmol/L 10/25/2024 11:57 PM EDT [facility] Blood, Arterial 10/25/2024 1 1:40 PM EDT 10/25/2024 11:57 PM EDT Harvey Domínguez III, MD POINT OF CARE TEST ORDERABLES Final Result [facility] [address] [facility]. [address] * (ABNORMAL) POC PO2 (10/25/2024 11:40 PM EDT) POC pO2, Arterial 107(H) 80 - 100 mm Hg 10/25/2024 11:57 PM EDT [facility] Blood, Arterial 10/25/2024 1 1:40 PM EDT 10/25/2024 11:57 PM EDT Harvey Domínguez III, MD POINT OF CARE TEST ORDERABLES Final Result Performing Organization Address [facility] Co de Phone Number [facility] [address] [facility]. [address] * POC PCO2 (10/25/2024 11:40 PM EDT) POC pCO2, Arterial 41 35 - 45 mm Hg 10/25/2024 11:57 PM EDT [facility] Blood, Arterial 10/25/2024 1 1:40 PM EDT 10/25/2024 11:57 PM EDT Harvey Domínguez III, MD POINT OF CARE TEST ORDERABLES Final Result Performing Organization Address City/[facility]/ZIP Co de Phone Number [facility] [address] * (ABNORMAL) POC pH (10/25/2024 11:40 PM EDT) POC pH, Arterial 7.29(L) 7.35 - 7.45 10/25/2024 11:57 PM EDT [facility] Blood, Arterial 10/25/2024 1 1:40 PM EDT 10/25/2024 11:57 PM EDT us Harvey Domínguez III, MD POINT OF CARE TEST ORDERABLES Final Result [facility] [address] * Urine culture (10/25/2024 11:08 PM EDT) Culture Result <1,000 cfu/mL [facility] Culture Result Skin/Urogeni rony Mckayla. No Further Workup. [facility] Newly Placed Berkowitz Urine URINE SPECIMEN / Unknown 10/25/2024 11:08 PM EDT Comment:urine culture Narrative [facility] - 10/28/2024 9:59 AM EDT urine culture urine culture Harvey Domínguez III, MD MICROBIOLOGY - GENE RAL ORDERABLES Final Result Performing Organization Address City/[facility]/ZIP Co de Phone Number [facility] [address] * X-ray Portable Chest (10/25/2024 10:19 PM EDT) Anatomical Region Laterality Modality Chest Radiographic Rachel ging 10/25/2024 9:56 PM EDT Impressions 10/25/2024 10:38 PM EDT IMPRESSION: Streaky bibasilar parenchymal opacities, likely representing atelectasis. No focal consolidation. Approved by Jony Lakhani DO on 10/25/2024 10:22 PM EDT I have personally reviewed the images and I agree with this report. Report Verified by: Ben Sanderson DO at 10/25/2024 10:38 PM EDT Narrative 10/25/2024 10:38 PM EDT EXAM: XR PORTABLE CHEST INDICATION: Other - Must Specify in Comments field; Preop TECHNIQUE: 1 view of the chest. COMPARISON: 10/06/2024. FINDINGS: Medical Devices: None. Heart and Mediastinum: Cardiomediastinal silhouette is within normal limits. Lungs and Pleura: Streaky bibasilar parenchymal opacities, likely representing atelectasis/scarring. No focal consolidation. No pleural effusions or evidence for pneumothorax. Bones and Soft tissues: No acute abnormalities. Procedure Note Kingston Sanderson DO - 10/25/2024 EXAM: XR PORTABLE CHEST INDICATION: Other - Must Specify in Comments field; Preop TECHNIQUE: 1 view of the chest. COMPARISON: 10/06/2024. FINDINGS: Medical Devices: None. Heart and Mediastinum: Cardiomediastinal silhouette is within normallimits. Lungs and Pleura: Streaky bibasilar parenchymal opacities, likelyrepresenting atelectasis/scarring. No focal consolidation. No pleuraleffusions or evidence for pneumothorax. Bones and Soft tissues: No acute abnormalities. IMPRESSION: Streaky bibasilar parenchymal opacities, likely representing atelectasis.No focal consolidation. Approved by Jony Lakhani DO on 10/25/2024 10:22 PM EDT I have personally reviewed the images and I agree with this report. Report Verified by: Ben Sanderson DO at 10/25/2024 10:38 PM EDT us Leandra Og MD IMG DIAGNOSTIC IMAGING ORDERABLES Final Result * Lactic Acid, STAT (10/25/2024 10:17 PM EDT) Lactate 1.6 0.5 - 2.2 mmol/L 10/25/2024 10:39 PM EDT [facility] Plasma 10/25/2024 10:1 7 PM EDT 10/25/2024 10:17 PM EDT us Ben Blake MD LAB BLOOD ORDERABLES Final Re sult [facility] [address] * (ABNORMAL) Ferritin (10/25/2024 10:17 PM EDT) Ferritin 623.2(H) 23.9 - 336.2 ng/mL 10/25/2024 11:02 PM EDT [facility] Serum 10/25/2024 10:1 7 PM EDT 10/25/2024 10:17 PM EDT us Leandra Og MD LAB BLOOD ORDERABLES F inal Result [facility] [address] [facility]. [address] * Iron Studies (Iron + TIBC) (10/25/2024 10:17 PM EDT) Iron 128 50 - 212 ug/dL 10/25/2024 10:44 PM EDT [facility] % Iron Saturation SEE COMMENT 15.0 - 55.0 % 10/25/2024 10:44 PM EDT [facility] Comment:Unable to calculate result because contributing result outside reportable range.. TIBC SEE COMMENT 261 - 462 ug/dL 10/25/2024 10:44 PM EDT [facility] Comment:Unable to calculate result because contributing result outside reportable range.. Serum 10/25/2024 10:1 7 PM EDT 10/25/2024 10:17 PM EDT Leandra Og MD LAB BLOOD ORDERABLES F inal Result Performing Organization Address City/[facility]/ZIP Co de Phone Number [facility] [address] [facility]. [address] * PTH (10/25/2024 10:17 PM EDT) Pathologist [facility] PTH 36.0 12.0 - 88.0 pg/mL 10/25/2024 11:01 PM EDT [facility] Serum 10/25/2024 10:1 7 PM EDT 10/25/2024 10:17 PM EDT Leandra Og MD LAB BLOOD ORDERABLES F inal Result [facility] [address] [facility]. [address] * HIV 1+2 Antibody/Antigen with Reflex (10/25/2024 10:17 PM EDT) Pathologist [facility] HIV 1+2 AB/AGN Nonreactive Nonreactive 10/25/2024 11:03 PM EDT [facility] Serum 10/25/2024 10:1 7 PM EDT 10/25/2024 10:16 PM EDT [facility] - 10/25/2024 11:03 PM EDT \HIVRNR us Leandra Og MD LAB BLOOD ORDERABLES F inal Result Performing Organization Address [facility] Co de Phone Number [facility] [address] [place] [address]. [address] * Hepatitis B Core Antibody (10/25/2024 10:17 PM EDT) Hep B Core Total Ab Nonreactive Nonreactive 10/25/2024 11:07 PM EDT [facility] Comment:Health Department no tified in accordance with reportable infectious disease guidelines. Serum 10/25/2024 10:1 7 PM EDT 10/25/2024 10:17 PM EDT [facility] - 10/25/2024 11:07 PM EDT A nonreactive final interpretation indicates that anti-HBc antibodies were not detected in the sample; it is possible that the individual is not infected with HBV. us Leandra Og MD LAB BLOOD ORDERABLES F inal Result Performing Organization Address [facility] Co de Phone Number [facility] [address] [place] [address]. [address] * Hepatitis C Antibody (10/25/2024 10:17 PM EDT) HCV Ab Nonreactive Nonreactive 10/25/2024 11:16 PM EDT [facility] Comment:Health Department no tified in accordance with reportable infectious disease guidelines. Serum 10/25/2024 10:1 7 PM EDT 10/25/2024 10:17 PM EDT [facility] - 10/25/2024 11:16 PM EDT Antibodies to HCV not detected; does not exclude the possibility of exposure to HCV. us Leandra Og MD LAB BLOOD ORDERABLES F inal Result [facility] [address] [facility]. [address] * (ABNORMAL) Hepatitis B Surface Antibody, Quantitati (10/25/2024 10:17 PM EDT) HBSAB NUMBER 10.70(H) 0.00 - 9.99 mIU/mL 10/25/2024 11:52 PM EDT [facility] Hep B S Ab Equivocal (A) Nonreactive 10/25/2024 11:52 PM EDT [facility] Serum 10/25/2024 10:1 7 PM EDT 10/25/2024 10:17 PM EDT Leandra Og MD LAB BLOOD ORDERABLES F inal Result Performing Organization Address [facility]/ZIP Co de Phone Number [facility] [address] [facility]. [address] * Hepatitis B surface antigen (10/25/2024 10:17 PM EDT) Pathologist [facility] Hep B Surface Ag Nonreactive Nonreactive 10/25/2024 11:12 PM EDT [facility] Comment:Health Department no tified in accordance with reportable infectious disease guidelines. Serum 10/25/2024 10:1 7 PM EDT 10/25/2024 10:17 PM EDT Narrative [facility] - 10/25/2024 11:12 PM EDT Specimen is considered negative for HBsAg. Leandra Og MD LAB BLOOD ORDERABLES F inal Result [facility] [address] [facility]. [address] * Hepatitis A Antibody Total (10/25/2024 10:17 PM EDT) Anti-HAV Total (IgG + IgM) Nonreactive 10/25/2024 11:13 PM EDT [facility] Serum 10/25/2024 10:1 7 PM EDT 10/25/2024 10:17 PM EDT Narrative [facility] - 10/25/2024 11:13 PM EDT HAV antibodies not detected Leandra Og MD LAB BLOOD ORDERABLES F inal Result Performing Organization Address [facility] Co de Phone Number [facility] [address] [facility]. [address] * (ABNORMAL) Hepatic Function Panel (10/25/2024 10:17 PM EDT) Total Bilirubin 9.1(H) 0.0 - 1.5 mg/dL 10/25/2024 10:47 PM EDT [facility] Bilirubin, Direct 4.58(H) 0.00 - 0.40 mg/dL 10/25/2024 10:47 PM EDT [facility] AST 51(H) 13 - 39 U/L 10/25/2024 10:47 PM EDT [facility] ALT 23 7 - 52 U/L 10/25/2024 10:47 PM EDT [facility] Alkaline Phosphatase 144(H) 36 - 125 U/L 10/25/2024 10:47 PM EDT [facility] Total Protein 5.5(L) 6.4 - 8.9 g/dL 10/25/2024 10:47 PM EDT [facility] Albumin 3.5 3.5 - 5.7 g/dL 10/25/2024 10:47 PM EDT [facility] Bilirubin, Indirect 4.52(H) 0.00 - 1.10 mg/dL 10/25/2024 10:47 PM EDT [facility] Plasma 10/25/2024 10:1 7 PM EDT 10/25/2024 10:17 PM EDT us Leandra Og MD LAB BLOOD ORDERABLES F inal Result Performing Organization Address [facility]/ZIP Co de Phone Number [facility] [address] * (ABNORMAL) Renal Function Panel w/EGFR (10/25/2024 10:17 PM EDT) Sodium 137 133 - 146 mmol/L 10/25/2024 10:47 PM EDT [facility] Potassium 2.1(LL) 3.5 - 5.3 mmol/L 10/25/2024 10:47 PM EDT [facility] Comment:Critical Result K:2. 1 Called to and read back by: ALICIA CARCAMO RN at: 10/25/2024 22:47:45 by:NANCY Chloride 100 98 - 110 mmol/L 10/25/2024 10:47 PM EDT [facility] CO2 20(L) 21 - 33 mmol/L 10/25/2024 10:47 PM EDT [facility] Anion Gap 17(H) 3 - 16 mmol/L 10/25/2024 10:47 PM EDT [facility] BUN 74(H) 7 - 25 mg/dL 10/25/2024 10:47 PM EDT [facility] Creatinine 3.87(H) 0.60 - 1.30 mg/dL 10/25/2024 10:47 PM EDT [facility] Glucose 114(H) 70 - 100 mg/dL 10/25/2024 10:47 PM EDT [facility] Calcium 9.3 8.6 - 10.3 mg/dL 10/25/2024 10:47 PM EDT [facility] Phosphorus 5.9(H) 2.1 - 4.7 mg/dL 10/25/2024 10:47 PM EDT [facility] Albumin 3.5 3.5 - 5.7 g/dL 10/25/2024 10:47 PM T [facility] Osmolality, Calculated 307(H) 278 - 305 mOsm/kg 10/25/2024 10:47 PM EDT [facility] EGFR 19 10/25/2024 10:47 PM T [facility] Comment:As of 2021, the estimated GFR is calculated using the 2020 Chronic Kidney Disease Epidemiology Collaboration (CKD-EPI) equation. In line with the NKF-ASN Task Force Recommendations, this equation does not include a coefficient for race. A single eGFR value is calculated for each patient. The reference interval is >60 mL/min/1.73m2. eGFR values greater than 90 will be reported as >90mL/min/1.73m2. Reference: Hoff C, Talia M, Olivia DC, Emerita ND, Madelyn [place], Felicia LA, et al. A Unifying Approach for GFR Estimation: Recommendations of the NKF-ASN Task Force on Reassessing the inclusion of Race in Diagnosing Kidney Disease. Am J Kidney Dis. 2020. Plasma 10/25/2024 10:1 7 PM EDT 10/25/2024 10:17 PM EDT Leandra Og MD LAB BLOOD ORDERABLES F inal Result Performing Organization Address City/[facility]/ZIP Co de Phone Number [facility] [address] [facility]. [address] * (ABNORMAL) APTT, NO ANTICOAGULANT (10/25/2024 10:17 PM EDT) aPTT 41.7(H) 25.5 - 35.0 seconds 10/25/2024 10:36 PM EDT [facility] Plasma 10/25/2024 10:1 7 PM EDT 10/25/2024 10:17 PM EDT Leandra Og MD LAB BLOOD ORDERABLES F inal Result Performing Organization Address City/[facility]/ZIP Co de Phone Number [facility] [address] [facility]. [address] * (ABNORMAL) Protime-INR (10/25/2024 10:17 PM EDT) Protime 21.7(H) 12.1 - 15.1 seconds 10/25/2024 10:35 PM EDT [facility] INR 1.8(H) 0.9 - 1.1 10/25/2024 10:35 PM EDT [facility] Comment: RECOMMENDED THERAPEUTIC RANGES USING INR : Stable oral anticoagulant therapy: 2.0 - 3.0 Mechanical prosthetic heart valve: 2.5 - 3.5 Recurrent acute myocardial infarction: 2.5 - 3.5 Plasma 10/25/2024 10:1 7 PM EDT 10/25/2024 10:17 PM EDT us Leandra Og MD LAB BLOOD ORDERABLES F inal Result [facility] [address] [place] [address], [facility] * (ABNORMAL) Differential (10/25/2024 10:17 PM EDT) Differential Comments See Note 10/25/2024 10:54 PM EDT [facility] Comment: _Platelets Appear Decreased _Platelet Morphology Normal Scan Result PERFORMED 10/25/2024 10:54 PM EDT [facility] Neutrophils Relative 79.8 40.0 - 80.0 % 10/25/2024 10:54 PM EDT [facility] Lymphocytes Relative 9.6(L) 15.0 - 45.0 % 10/25/2024 10:54 PM EDT [facility] Monocytes Relative 8.9 0.0 - 12.0 % 10/25/2024 10:54 PM EDT [facility] Eosinophils Relative 1.3 0.0 - 8.0 % 10/25/2024 10:54 PM EDT [facility] Basophils Relative 0.4 0.0 - 1.0 % 10/25/2024 10:54 PM EDT [facility] nRBC 0 0 - 0 /100 WBC 10/25/2024 10:54 PM EDT [facility] Neutrophils Absolute 4,948 1,520 - 8,640 /uL 10/25/2024 10:54 PM EDT [facility] Lymphocytes Absolute 595 570 - 4,860 /uL 10/25/2024 10:54 PM EDT [facility] Monocytes Absolute 552 0 - 1,296 /uL 10/25/2024 10:54 PM EDT [facility] Eosinophils Absolute 81 0 - 864 /uL 10/25/2024 10:54 PM EDT [facility] Basophils Absolute 25 0 - 108 /uL 10/25/2024 10:54 PM EDT [facility] PLT Morphology Platelet morphology appears normal 10/25/2024 10:54 PM EDT [facility] Whole Blood 10/25/2024 10:1 7 PM EDT 10/25/2024 10:17 PM EDT us Leandra Og MD LAB BLOOD ORDERABLES F inal Result [facility] [address] [place] [address], [facility] * (ABNORMAL) CBC (10/25/2024 10:17 PM EDT) WBC 6.2 3.8 - 10.8 10E3/uL 10/25/2024 10:54 PM EDT [facility] RBC 2.40(L) 4.20 - 5.80 10E6/uL 10/25/2024 10:54 PM EDT [facility] Hemoglobin 8.3(L) 13.2 - 17.1 g/dL 10/25/2024 10:54 PM EDT [facility] Hematocrit 23.7(L) 38.5 - 50.0 % 10/25/2024 10:54 PM EDT [facility] MCV 98.9 80.0 - 100.0 fL 10/25/2024 10:54 PM EDT [facility] MCH 34.6(H) 27.0 - 33.0 pg 10/25/2024 10:54 PM EDT [facility] MCHC 35.0 32.0 - 36.0 g/dL 10/25/2024 10:54 PM EDT [facility] RDW 17.8(H) 11.0 - 15.0 % 10/25/2024 10:54 PM EDT [facility] Platelets 56(L) 140 - 400 10E3/uL 10/25/2024 10:54 PM EDT [facility] Comment: Specimen checked for clots. None detected. Slide Reviewed for PLT Clumps. None Seen. Platelet Estimate Decreased 10/25/2024 10:54 PM EDT [facility] MPV 8.1 7.5 - 11.5 fL 10/25/2024 10:54 PM EDT [facility] Whole Blood 10/25/2024 10:1 7 PM EDT 10/25/2024 10:17 PM EDT Narrative [facility] - 10/25/2024 10:54 PM EDT Peripheral blood smear was scanned per review criteria approved by the laboratory medical artist. Leandra Og MD LAB BLOOD ORDERABLES F inal Result Performing Organization Address [facility] Co de Phone Number [facility] [address] [facility] [place] [address], [facility] * Donor Specific Antibody (DSA) (10/25/2024 10:00 PM EDT) Pathologist [facility] AntiDonor Antibodies The request and specimen(s) for this test have been received and transported to the [facility] [place] at [address] [place] [address]. The [facility] [place] will report results directly to the client. 10/25/2024 10:20 PM EDT [facility] Comment:Testing performed by [facility], [facility], [address] [place] [address]. The [facility] report has been forwarded to the appropriate ordering location. Please refer to this report for patient results. Serum 10/25/2024 10:0 0 PM EDT 10/25/2024 10:20 PM EDT Leandra Og MD LAB BLOOD ORDERABLES F inal Result Performing Organization Address [facility] Co de Phone Number [facility] [address] [id number], [facility] * (ABNORMAL) Venous Blood Gas, Line/Syringe (10/25/2024 10:00 PM EDT) PH-Line Draw 7.38 7.32 - 7.42 10/25/2024 10:08 PM EDT [facility] PCO2-Line Draw 33(L) 41 - 51 mm Hg 10/25/2024 10:08 PM EDT [facility] PO2-Line Draw 33 25 - 40 mm Hg 10/25/2024 10:08 PM EDT [facility] HCO3-Line Draw 20(L) 24 - 28 mmol/L 10/25/2024 10:08 PM EDT [facility] CO2 Content-Line Draw 21(L) 25 - 29 mmol/L 10/25/2024 10:08 PM EDT [facility] Base Excess-Line Draw -5.0(L) -2.0 - 3.0 mmol/L 10/25/2024 10:08 PM EDT [facility] %HBO2-Line Draw 53.8 40.0 - 70.0 % 10/25/2024 10:08 PM EDT [facility] Carboxyhgb-Ludivina e Draw 1.9 % 10/25/2024 10:08 PM EDT [facility] Comment: CARBOXYHEMOGLOBIN (CO) REFERENCE RANGES: Non-Smokers: <2 % Smokers: <8 % TOXIC: >20 % Methemoglobin- Line Draw 0.2 0.0 - 1.5 % 10/25/2024 10:08 PM EDT [facility] Reduced Hemoglobin-Ludivina e Draw 44.1(H) 0.0 - 5.0 % 10/25/2024 10:08 PM EDT [facility] Venous, Line Draw 10/25/2024 10:00 PM EDT 10/25/2024 10:04 PM EDT us Leandra Og MD LAB BLOOD ORDERABLES F inal Result [facility] [address] * (ABNORMAL) POC Glucose Monitoring Device (10/25/2024 9:56 PM EDT) POC Glucose Monitoring Device 103(H) 70 - 100 mg/dL 10/25/2024 9:58 PM EDT [facility] Blood 10/25/2024 9:56 PM EDT 10/25/2024 9:57 PM EDT Harvey Domínguez III, MD POINT OF CARE TEST ORDERABLES Final Result [facility] [address] * ECG 12 lead (MUSE) (10/25/2024 9:34 PM EDT) 10/25/2024 9:34 PM EDT Narrative MUSE - 10/27/2024 10:08 AM EDT Ventricular Rate: 97 BPM Atrial Rate: 86 BPM QRS Duration: 106 ms QT: 532 ms QTc: 675 ms P [place]: 38 degrees R [place]: -29 degrees T [place]: 32 degrees Diagnosis Line: Critical Test Result: Long QTc , AV Block ^ SINUS RHYTHM WITH PREMATURE VENTRICULAR COMPLEXES ^ PROLONGED QT ^ NONSPECIFIC ST AND T WAVE CHANGES ^ ABNORMAL ECG ^ ^ Confirmed by MD HA, NOAHYAKady ([id number]) on 10/27/2024 10:08:26 AM Leandra Og MD ECG ORDERABLES Final Result Performing Organization Address City/[facility]/ZIP Co de Phone Number MUSE * Hepatitis C RNA, Quant Reflex to Genotyp (10/25/2024 8:18 PM EDT) Pathologist [facility] International Units Not Detected IU/mL 10/27/2024 11:03 AM EDT [facility] Comment:Test methodology for HCV RNA quantification is an FDA-approved nucleic acid amplification assay. The Lower Limit of Quantitation (LLOQ) is 15 IU/mL. The linear range of the assay is 15-100,000,000 IU/mL. The Limit of Detection (LoD) is 12.0 IU/mL for EDTA plasma. The reference range is Not Detected. IU log10 See Note log 10 IU/mL 10/27/2024 11:03 AM EDT [facility] Comment:HCV RNA not detected . Plasma 10/25/2024 8:18 PM EDT 10/25/2024 10:27 PM EDT us Leandra Og MD LAB BLOOD ORDERABLES F inal Result [facility] [address] [place] [address], [facility] * Urinalysis w/Rfl to Microscopic (10/25/2024 8:18 PM EDT) Color, UA Yellow Yellow,Straw 10/25/2024 10:38 PM EDT [facility] Clarity, UA Clear Clear 10/25/2024 10:38 PM EDT [facility] Specific Spicer, UA 1.010 1.005 - 1.035 10/25/2024 10:38 PM EDT [facility] pH, UA 6.0 5.0 - 8.0 10/25/2024 10:38 PM EDT [facility] Protein, UA Negative Negative mg/dL 10/25/2024 10:38 PM EDT [facility] Glucose, UA Negative Negative mg/dL 10/25/2024 10:38 PM EDT [facility] Ketones, UA Negative Negative mg/dL 10/25/2024 10:38 PM EDT [facility] Bilirubin, UA Negative Negative 10/25/2024 10:38 PM EDT [facility] Blood, UA Negative Negative 10/25/2024 10:38 PM EDT [facility] Nitrite, UA Negative Negative 10/25/2024 10:38 PM EDT [facility] Urobilinogen, UA <2.0 0.2 - 1.9 mg/dL 10/25/2024 10:38 PM EDT [facility] Leukocyte Esterase, UA Negative Negative 10/25/2024 10:38 PM EDT [facility] Urine 10/25/2024 8:18 PM EDT 10/25/2024 10:35 PM EDT [facility] - 10/25/2024 10:38 PM EDT Microscopic testing is not performed when the dipstick is negative for blood, leukocyte, protein and nitrite. us Leandra Og MD URINE ORDERABLES Final Result Performing Organization Address City/State/[facility] Co de Phone Number [facility] [address] * Toxoplasma gondii antibody, IgG (10/25/2024 8:18 PM EDT) Toxoplasma Gondii IgG <3.0 0.0 - 7.1 IU/mL 10/27/2024 7:55 AM EDT [facility] Comment: Negative <7.2 Equivocal 7.2 - 8.7 Positive >8.7 Serum 10/25/2024 8:18 PM EDT 10/27/2024 8:06 AM EDT Narrative [facility] - 10/27/2024 8:06 AM EDT PERFORMED AT: [address] [id number] REHABILITATION PROGRAM COORDINATOR: Bassam Khalil, PhD PHONE: [phone] Leandra Og MD LAB BLOOD ORDERABLES F inal Result [facility] [address] [facility]. [address] * Antibody Screen (10/25/2024 7:46 PM EDT) Antibody Screen Negative 10/25/2024 10:41 PM EDT [facility] Blood 10/25/2024 7:46 PM EDT 10/25/2024 9:54 PM EDT Narrative [facility] - 10/25/2024 10:44 PM EDT Testing performed by [facility] Transfusion Service Ben Blake MD BLOOD BANK TEST ORDERABLES Fi nal Result Performing Organization Address City/[facility]/ZIP Co de Phone Number [facility] [address] [facility]. [address] * ABO/Rh (10/25/2024 7:46 PM EDT) Pathologist [facility] ABO Grouping O 10/25/2024 10:23 PM EDT [facility] Rh Type Positive 10/25/2024 10:23 PM EDT [facility] Blood 10/25/2024 7:46 PM EDT 10/25/2024 9:54 PM EDT Ben Blake MD BLOOD BANK TEST ORDERABLES Fi nal Result Performing Organization Address City/[facility]/ZIP Co de Phone Number [facility] [address] [place] [address]. [address] * (ABNORMAL) TEG-Standard Global Hemostasis (Rapid TEG with Heparin Effect, Contains a Baseline TEG) (10/25/2024 7:46 PM EDT) Citrated Kaolin Reaction Time (TEGHEPARINASE) 8.4 4.6 - 9.1 minutes 10/25/2024 10:49 PM EDT [facility] Citrated Rapid Teg Maximum Amplitude (TEGHEPARINASE) <40.0(L) 52.0 - 70.0 mm 10/25/2024 10:49 PM EDT [facility] Citrated Functional Fibrinogen Maximum Amplitude (TEGHEPARINASE) 6.7(L) 15.0 - 32.0 mm 10/25/2024 10:49 PM EDT [facility] Citrated Kaolin W/Heparinase Reaction Time (TEGHEPARINASE) 8.1 4.3 - 8.3 minutes 10/25/2024 10:49 PM EDT [facility] Citrated Kaolin K-Time (TEGHEPARINASE) 2.5(A) 0.8 - 2.1 minutes 10/25/2024 10:49 PM EDT [facility] Citrated Kaolin Angle (TEGHEPARINASE) 65.7(A) 63.0 - 78.0 degrees 10/25/2024 10:49 PM EDT [facility] Citrated Kaolin Maximum Amplitude (TEGHEPARINASE) <40.0(L) 52.0 - 69.0 mm 10/25/2024 10:49 PM EDT [facility] Citrated Functional Fibrinogen- Fibrinogen Level (TEGHEPARINASE) 159.5(L) 278.0 - 581.0 mg/dL 10/25/2024 10:49 PM EDT [facility] Whole Blood (Citrate) 10/25/2024 7:46 PM EDT 10/25/2024 10:15 PM EDT us Ben Blake MD LAB BLOOD ORDERABLES Final Re sult [facility] [address] [place] [address], [facility] documented in this encounter Visit Diagnoses Diagnosis Acute kidney injury superimposed on CKD ([facility])- Primary Prophylactic antibiotic Encounter for long-term (current) use of antibiotics Prolonged QT interval Nonspecific abnormal electrocardiogram (ECG) (EKG) Immunosuppression ([facility]) Abdominal pain, unspecified abdominal location documented in this encounter Administered Medications Inactive Administered Medications - up to 3 most recent administrations Medication Order MAR Action Action Date Dose Rate Site acetaminophen (OFIRMEV) IV infusion 1,000 mg 1,000 mg (rounded from 1,837.5 mg = 15 mg/kg 122.5 kg), Intravenous, Administer over 15 Minutes, Every 8 hours, Indication for Ofirmev use: Opioid minimization in perioperative patients not a candidate for NSAIDs (administered in perioperative setting only), Patient is not a candidate for NSAID, due to: Other contraindication to NSAID, please specify in comment:, Desire to minimize opiate use, due to concomitant disease state negatively influencing: GI Motility, Alternative route of acetaminophen administration not available or not tolerated. Reason not tolerated: Other (please indicate in Comments field): New Bag 10/28/2024 3:44 AM EDT 1,000 mg 400 mL/hr New Bag 10/27/2024 8:50 PM EDT 1,000 mg 400 mL/hr New Bag 10/27/2024 12:26 PM EDT 1,000 mg 400 mL/hr acetaminophen (OFIRMEV) IV infusion 1,000 mg 1,000 mg (rounded from 1,837.5 mg = 15 mg/kg 122.5 kg), Intravenous, Administer over 15 Minutes, Once, Indication for Ofirmev use: NON-FORMULARY REQUEST - Patient does not meet other selections, request pharmacy nonformulary review, Reason for NF use: NPO requiring additional MM analgesia New 10/28/2024 3:35 PM EDT 1,000 m g 400 mL/hr acetaminophen (TYLENOL) tablet 975 mg 975 mg, Oral, Every 8 hours, First dose on Sun10/28/24 at 1200 Given 11/02/2024 12:19 PM EDT 975 mg Given 11/02/2024 5:43 AM EDT 975 mg Given 11/01/2024 9:19 PM EDT 975 mg albumin human 25% 50 mL, Intravenous, Every 30 min, First dose on Sun10/26/24 at 1530, For 3 doses, In Emergencies, may administer as rapidly as needed to improve clinical status., Select indication for use: Hepatic Resection/Liver Transplantation, at 100 mL/hr New Bag 10/26/2024 3:47 PM EDT 50 mLs 200 mL/hr New Bag 10/26/2024 3:29 PM EDT 50 mLs 200 mL/hr New Bag 10/26/2024 3:13 PM EDT 50 mLs 200 mL/hr albumin human 25% 50 mL, Intravenous, Every 30 min, First dose on Sun10/27/24 at 0000, For 2 doses, In Emergencies, may administer as rapidly as needed to improve clinical status., Select indication for use: Hepatic Resection/Liver Transplantation, at 100 mL/hr New Bag 10/27/2024 12:41 AM EDT 50 mLs 100 mL/hr New Bag 10/27/2024 12:20 AM EDT 50 mLs 100 mL/hr albumin human 25% 50 mL, Intravenous, Every 30 min, First dose on Sun10/27/24 at 0100, For 2 doses, In Emergencies, may administer as rapidly as needed to improve clinical status., Select indication for use: Hepatic Resection/Liver Transplantation, at 100 mL/hr New Bag 10/27/2024 1:37 AM EDT 50 mLs 100 mL/hr New Bag 10/27/2024 1:06 AM EDT 50 mLs 100 mL/hr albumin human 25% 50 mL, Intravenous, Every 30 min, First dose (after last reorder) on Sun10/27/24 at 1730, For 2 doses, In Emergencies, may administer as rapidly as needed to improve clinical status., Select indication for use: Hepatic Resection/Liver Transplantation, at 100 mL/hr New Bag 10/27/2024 6:00 PM EDT 50 mLs 1 00 mL/hr New Bag 10/27/2024 5:30 PM EDT 50 mLs 100 mL/hr albumin human 25% 50 mL, Intravenous, Every 30 min, First dose on Sun10/31/24 at 2100, For 2 doses, In Emergencies, may administer as rapidly as needed to improve clinical status., Select indication for use: Hepatic Resection/Liver Transplantation, at 100 mL/hr New Bag 10/31/2024 9:43 PM EDT 50 mLs 100 mL/hr New Bag 10/31/2024 8:54 PM EDT 50 mLs 100 mL/hr albumin human 25% 50 mL, Intravenous, Every 30 min, First dose (after last reorder) on Sun11/01/24 at 0900, For 3 doses, In Emergencies, may administer as rapidly as needed to improve clinical status., Select indication for use: Hepatic Resection/Liver Transplantation, at 100 mL/hr New Bag 11/01/2024 11:55 AM EDT 50 mLs 100 mL/hr New Bag 11/01/2024 10:50 AM EDT 50 mLs 100 mL/hr New Bag 11/01/2024 10:50 AM EDT 50 mLs 100 mL/hr albumin human 25% 50 mL, Intravenous, Every 30 min, First dose on 11/01/24 at 1900, For 1 dose, In Emergencies, may administer as rapidly as needed to improve clinical status., Select indication for use: Hepatic Resection/Liver Transplantation, at 100 mL/hr New Bag 11/01/2024 6:56 PM EDT 50 mLs 100 mL/hr albumin human 5% 250 mL, Intravenous, Every 3 hours, First dose on 10/26/24 at 0800, For 2 doses, In Emergencies, may administer as rapidly as needed to improve clinical status., Select indication for use: Hepatic Resection/Liver Transplantation, at 83.3 mL/hr New Bag 10/26/2024 7:38 AM EDT 250 mLs 83.3 mL/hr albumin human 5% 500 mL, Intravenous, Every 3 hours, First dose (after last reorder) on 10/26/24 at 1230, For 1 dose, In Emergencies, may administer as rapidly as needed to improve clinical status., Select indication for use: Hepatic Resection/Liver Transplantation, at 999 mL/hr New Bag 10/26/2024 12:28 PM EDT 500 mLs 999 mL/hr albumin human 5% 250 mL, Intravenous, Every 3 hours, First dose on 10/26/24 at 1830, For 4 doses, In Emergencies, may administer as rapidly as needed to improve clinical status., Select indication for use: Hepatic Resection/Liver Transplantation, at 83.3 mL/hr New Bag 10/27/2024 5:15 AM EDT New 10/27/2024 1:45 AM EDT 250 mLs 100 mL/hr Rate/Dose [facility] 10/26/2024 10:16 PM EDT 83.3 m L/hr albumin human 5% 250 mL, Intravenous, Every 3 hours, First dose on 10/27/24 at 1730, For 2 doses, In Emergencies, may administer as rapidly as needed to improve clinical status., Select indication for use: Hepatic Resection/Liver Transplantation, at 83.3 mL/hr New Bag 10/27/2024 8:53 PM EDT 250 mLs 83.3 mL/hr Rate/Dose Verify 10/27/2024 7:00 PM EDT 83.3 mL /hr Rate/Dose Verify 10/27/2024 6:00 PM EDT 83.3 mL /hr albumin human 5% 250 mL, Intravenous, Every 3 hours, First dose (after last modification) on Sun10/28/24 at 0730, For 4 doses, In Emergencies, may administer as rapidly as needed to improve clinical status., Select indication for use: Hepatic Resection/Liver Transplantation, at 100 mL/hr Rate/Dose Verify 10/28/2024 12:49 PM EDT 100 mL/hr New Bag 10/28/2024 12:33 PM EDT 250 mLs 100 mL/hr New Bag 10/28/2024 12:32 PM EDT 250 mLs 100 mL/hr albumin human 5% 250 mL, Intravenous, Every 3 hours, First dose on Sun10/30/24 at 1000, For 2 doses, In Emergencies, may administer as rapidly as needed to improve clinical status., Select indication for use: Hepatic Resection/Liver Transplantation, at 83.3 mL/hr New Bag 10/30/2024 5:45 PM EDT 250 mLs 83.3 mL/hr New Bag 10/30/2024 12:14 PM EDT 250 mLs 83.3 mL/hr AMPicillin 1 g in sodium chloride 0.9% 100 mL IVPB ([id number]) 1 g, Intravenous, at 200 mL/hr, Every 6 hours scheduled (4 times per day), First dose on Sun10/26/24 at 0630, For 2 days, Dosage may need to be adjusted for renal dysfunction. Full dose is 1g IV q6h Use [id number] Adapter - Mix Thoroughly Before Administration New 10/28/2024 1:58 AM EDT 1 g 200 mL/hr Rate/Dose Verify 10/27/2024 7:00 PM EDT 200 mL/ hr New Bag 10/27/2024 6:42 PM EDT 1 g 200 mL/hr angiotensin II (GIAPREZA) 0.005 mg/mL in sodium chloride 0.9 % 500 mL infusion Intravenous, at 0-58.8 mL/hr, Continuous, Starting on Sun10/26/24 at 1300, Enter on pump as N O DRUG SELECTED Weaning: Once underlying shock sufficiently improved, defined as [id number] r requirement ? 0.2 mcg/kg/min (norepinephrine equivalent) and MAP ? 65 mmHg, down-titrate every 5 to 15 minutes by increments of up to 15 ng/kg/minute based on response. Consider maximum of 48-hour infusion. Doses as low as 1.25 ng/kg/minute may be used., Is patient currently requiring pressors at >0.2 mcg/kg/min (norepinephrine equivalent) for greater than 6 hours? Yes, Is MAP < 55 mHg? Yes, Does patient have central venous or arterial line access? Yes, Has patient required IV fluids = 25 mL/kg for previous 24 hours? Yes, Has patient survived on ECMO for at least 12 hours: No, Has verifying pharmacist contacted [employer]? Yes, Thrombotic risk benefit assessment? Yes, Initial starting rate: 10 ng/kg/minute, Maximum Initial Rate (during first 3 hours of treatment): 80 ng/kg/minute, Maximum Maintenance Rate: 40 ng/kg/minute, Titration interval: no more frequent than: 5 minutes, Titrate by: 1 - 10 ng/kg/minute, Clinical Goal: MAP = 65 mmHg, Contact Provider: if goal cannot be maintained at highest possible dose Rate/Dose Change 10/27/2024 4:17 AM EDT 2.5 ng/kg/min 3.675 mL/hr Rate/Dose Change 10/27/2024 2:39 AM EDT 5 ng/kg/min 7.35 m L/hr Rate/Dose Verify 10/27/2024 1:40 AM EDT 2.5 ng/kg/min 3.7 mL/hr bisacodyL (DULCOLAX) suppository 10 mg 10 mg, Rectal, Daily as needed, Constipation, Starting on Sun10/29/24 at 0936 Given 10/30/2024 9:48 AM EDT 10 mg cefTRIAXone (ROCEPHIN) 2 g in sodium chloride 0.9% 20 mL IV Push 2 g, Intravenous, at 240 mL/hr, Every 12 hours, First dose on Sun10/26/24 at 1830, For 2 days, Give 24 hours after pre-op dose. ADMINISTER IV PUSH. Infuse over 5 minutes. Draw up 20 mL Sodium Chloride 0.9% into empty syringe. Inject 20 mL into vial of Ceftriaxone. Shake well. Withdraw volume into syringe and administer immediately. Given 10/28/2024 6:37 AM EDT 2 g 240 mL/hr Given 10/27/2024 6:15 PM EDT 2 g 240 mL/hr Given 10/26/2024 5:55 PM EDT 2 g 240 mL/hr citric acid-sodium citrate (BICITRA) solution 30 mL 30 mL, Oral, 2 times daily, First dose on Sun10/29/24 at 0900 Given 10/31/2024 8:50 AM EDT 30 mLs Given 10/30/2024 9:26 AM EDT 30 mLs Given 10/29/2024 7:58 PM EDT 30 mLs dextrose 10%-water (D10W) IV soln 12.5 g, Intravenous, Every 15 min PRN, Low blood sugar, for glucose < 70 and alert but can not be corrected, orally or via feeding tube, Starting on Sun10/28/24 at 0930, Recheck blood sugar in 15 minutes and repeat treatment if glucose still < 70. For Smart Pump: Set volume to be infused; 125 ml for 12.5 grams or 250 mL for 25 grams. dextrose 10%-water (D10W) IV soln 25 g, Intravenous, Every 15 min PRN, Low blood sugar, for glucose < 70 and not alert, Starting on Sun10/28/24 at 0930, Recheck glucose in 15 minutes and repeat treatment if glucose still < 70. For Smart Pump: Set volume to be infused; 125 ml for 12.5 grams or 250 mL for 25 grams. diphenhydrAMINE (BENADRYL) capsule 25 mg 25 mg, Oral, Once, On Sun10/25/24 at 2100, For 1 dose, Give in pre-op area, prior to induction., Pre-op Given 10/25/2024 10:12 PM EDT 25 mg electrolyte-R (pH 7.4) (NORMOSOL-R pH 7.4) IV solution 75 mL/hr, Intravenous, Continuous, Starting on Sun10/29/24 at 1000 New Bag 10/29/2024 9:47 AM EDT 75 mL/hr 75 mL/hr EPINEPHrine (ADRENALIN) 10 mg in sodium chloride 0.9 % 250 mL infusion Intravenous, at 0-22.5 mL/hr, Continuous, Starting on Sun10/26/24 at 0730, [facility]U Tele Monitoring required; do not discontinue [facility] CENTRAL LINE PREFERRED: Peripheral line may be used for urgent initiation prior to placement of central line., Initial starting rate: 2 mcg/min, Titrate by: 0.5 - 5 mcg/min, Titration interval: no more frequent than: 2 minutes, Clinical Goal: MAP greater than or equal to 65 mmHg, Contact Provider: If goals cannot be maintained at highest permissible dose Rate/Dose Change 10/26/2024 12:48 PM EDT 1 mcg/min 1.5 mL/hr Rate/Dose Change 10/26/2024 12:46 PM EDT 3 mcg/min 4.5 mL /hr Rate/Dose Change 10/26/2024 12:43 PM EDT 4 mcg/min 6 mL/h r eye ointment ophth oint Both Eyes, 2 times daily, First dose on [place] 10/26/24 at 1230 Given 10/31/2024 10:29 AM EDT Given 10/27/2024 8:46 PM EDT Given 10/27/2024 8:54 AM EDT famotidine (PF) (PEPCID) injection 20 mg 20 mg, Intravenous, Every 12 hours scheduled (2 times per day), First dose on [place] 10/26/24 at 0900 Given 10/27/2024 9:10 AM EDT 20 mg Given 10/26/2024 7:59 PM EDT 20 mg Given 10/26/2024 9:20 AM EDT 20 mg FentaNYL (SUBLIMAZE) 2500 mcg (10 mcg/mL) in NSS 250 mL IV infusion Intravenous, at 0-20 mL/hr, Continuous, Starting on [place] 10/26/24 at 0630, If the patient is pharmacologically paralyzed DO NOT titrate this medication; maintain the last effective dose before the paralytic was administered. Start continuous infusion at initial ordered rate. Titrate infusion no more frequent than every 5 minutes to goal as defined in order. Provide bolus from bag with every rate increase of fentaNYL infusion. When fentaNYL infusion LESS THAN 25 mcg/hr, consider discontinuation of infusion and use of bolus-only PRN therapy. If CPOT GREATER THAN or EQUAL to 3 AND off infusion; provide fentaNYL bolus from bag per PRN order. If unable to maintain CPOT LESS THAN 3 within 5 minutes of bolus-only approach (off infusion); administer second fentaNYL bolus and restart fentaNYL continuous infusion at most recent recorded infusion rate. Post-sedation vacation; resume infusion at most recent recorded rate if patient not meeting clinical goal defined in order. , Initial starting rate: 50 mcg/hr, Titrate by: 10-50 mcg/hr, Titration interval: no more frequent than: 5 minutes, Clinical Goal: CPOT =, Goal CPOT: <3, Contact Provider: If goal cannot be maintained at highest permissible dose Rate/Dose Verify 10/27/2024 10:00 AM EDT 150 mcg/hr 15 mL/hr Rate/Dose Verify 10/27/2024 8:57 AM EDT 150 mcg/hr 15 mL/h r Rate/Dose Verify 10/27/2024 8:47 AM EDT 150 mcg/hr 15 mL/h r fentaNYL (SUBLIMAZE) bolus from bag 50 mcg 50 mcg, Intravenous, Every 5 min PRN, moderate pain (NRS 4-6) or if patient is non-communicative (CPOT 3-5), severe pain (NRS 7-10) or if patient is non-communicative (CPOT 6-8), Starting on 10/26/24 at 0628, Provide bolus from bag for every rate increase in fentaNYL infusion. When fentaNYL infusion LESS THAN 25 mcg/hr, consider discontinuation of infusion and use of bolus-only PRN therapy. If CPOT GREATER THAN or EQUAL to 3; bolus with fentaNYL from bag per PRN order. If unable to maintain CPOT LESS THAN 3 within 5 minutes of bolus-only approach (off infusion); administer second fentaNYL bolus and restart fentaNYL continuous infusion at most recent recorded infusion rate. Administer bolus over 1-2 minutes. HIGH ALERT MEDICATION Bolus from Bag 10/26/2024 1:11 PM EDT 50 mcg 200 mL/hr fluconazole (DIFLUCAN) tablet 200 mg 200 mg, Oral, Daily, First dose on Tish 10/30/24 at 1000, DO NOT CRUSH OR CHEW. Given 11/02/2024 11:41 AM EDT 200 mg Given 11/01/2024 10:18 AM EDT 200 mg Given 10/31/2024 8:52 AM EDT 200 mg FLUoxetine (PROZAC) capsule 20 mg 20 mg, Oral, Daily, First dose on Sun10/28/24 at 0930 Given 11/02/2024 11:42 AM EDT 20 mg Given 11/01/2024 10:18 AM EDT 20 mg Given 10/31/2024 8:52 AM EDT 20 mg furosemide (LASIX) injection 40 mg 40 mg, Intravenous, Once, On 11/01/24 at 1000, For 1 dose, Give doses of 100mg or less over 5 minutes. For doses over 100mg, give at rate of up to 20mg/min. Given 11/01/2024 10:22 AM EDT 40 mg furosemide (LASIX) injection 40 mg 40 mg, Intravenous, Once, On 11/01/24 at 1600, For 1 dose, Give doses of 100mg or less over 5 minutes. For doses over 100mg, give at rate of up to 20mg/min. Given 11/01/2024 5:14 PM EDT 40 mg furosemide (LASIX) injection 40 mg 40 mg, Intravenous, Once, On Sun11/02/24 at 0900, For 1 dose, Give doses of 100mg or less over 5 minutes. For doses over 100mg, give at rate of up to 20mg/min. Given 11/02/2024 11:48 AM EDT 40 mg gabapentin (NEURONTIN) capsule 100 mg 100 mg, Oral, 3 times daily, First dose on Sun10/31/24 at 0900 Given 11/02/2024 3:31 PM EDT 100 mg Given 11/02/2024 11:49 AM EDT 100 mg Given 11/01/2024 9:20 PM EDT 100 mg heparin (porcine) injection 5,000 Units 5,000 Units, Subcutaneous, Every 8 hours scheduled (3 times per day), First dose on Sun10/25/24 at 2030 Given 10/25/2024 10:12 PM EDT 5,000 Units Right Anterior Thigh heparin (porcine) injection 5,000 Units 5,000 Units, Subcutaneous, Every 8 hours scheduled (3 times per day), First dose on Sun10/26/24 at 0600 Given 11/02/2024 5:43 AM EDT 5,000 Units Abdominal Tissue Given 11/01/2024 9:19 PM EDT 5,000 Units A bdominal Tissue Given 11/01/2024 1:45 PM EDT 5,000 Units L eft Arm HYDROmorphone (DILAUDID) injection 0.5 mg 0.5 mg, Intravenous, Once, On Sun10/29/24 at 2030, For 1 dose Given 10/29/2024 8:56 PM EDT 0.5 mg HYDROmorphone (DILAUDID) injection 0.5 mg 0.5 mg, Intravenous, Every 4 hours PRN, severe pain (NRS 7-10) or if patient is non-communicative (CPOT 6-8), for breakthrough pain, Starting on Sun10/30/24 at 1143, For 1 day Given 10/30/2024 9:10 PM EDT 0.5 mg HYDROmorphone (DILAUDID) injection Syrg 0.3 mg 0.3 mg, Intravenous, Once, On Sun10/29/24 at 1100, For 1 dose Given 10/29/2024 11:03 AM EDT 0.3 mg HYDROmorphone (DILAUDID) injection Syrg 0.5 mg 0.5 mg, Intravenous, Once, On Sun10/28/24 at 0400, For 1 dose Given 10/28/2024 3:51 AM EDT 0.5 mg HYDROmorphone (DILAUDID) injection Syrg 1 mg 1 mg, Intravenous, Every 4 hours PRN, severe pain (NRS 7-10) or if patient is non-communicative (CPOT 6-8), Starting on Sun10/27/24 at 1047, For 48 hours Given 10/29/2024 6:02 AM EDT 1 mg Given 10/28/2024 10:56 PM EDT 1 mg Given 10/28/2024 6:48 PM EDT 1 mg HYDROmorphone (DILAUDID) BLEACH BOILER PULLER 6 mg/30 mL syringe *Standard Conc* Intravenous, Continuous, Starting on Sun10/27/24 at 1730, HIGH ALERT MEDICATION New Syringe/Cartridge 10/28/2024 3:59 AM EDT New Syringe/Cartridge 10/27/2024 7:09 PM EDT HYDROmorphone (DILAUDID) BLEACH BOILER PULLER 6 mg/30 mL syringe *Standard Conc* Intravenous, Continuous, Starting on Sun10/28/24 at 1200, HIGH ALERT MEDICATION New Syringe/Cartridge 10/28/2024 4:03 PM EDT Restarted 10/28/2024 12:50 PM EDT HYDROmorphone (DILAUDID) tablet 2 mg 2 mg, Oral, Every 4 hours PRN, severe pain (NRS 7-10) or if patient is non-communicative (CPOT 6-8), Starting on Sun10/31/24 at 0920 Given 11/02/2024 12:19 PM EDT 2 mg Given 11/02/2024 5:43 AM EDT 2 mg Given 11/02/2024 1:23 AM EDT 2 mg insulin (HumuLIN R) infusion - TITRATABLE NURSING PROTOCOL (HYPERGLYCEMIA) 0-28 Units/hr (0-28 mL/hr), Intravenous, Continuous, Starting on Sun10/26/24 at 0700, Discontinue all oral anti-diabetic medications. HIGH ALERT MEDICATION Rate/Dose Verify 10/27/2024 7:00 PM EDT 2.5 Units/hr 2.5 mL/hr Rate/Dose Verify 10/27/2024 6:00 PM EDT 2.5 Units/hr 2.5 m L/hr Rate/Dose Verify 10/27/2024 5:00 PM EDT 2.5 Units/hr 2.5 m L/hr insulin lispro (humaLOG/ADMELOG) injection 0-10 Units 0-10 Units, Subcutaneous, At Bedtime (2100), First dose on Sun10/28/24 at 2100, HIGH ALERT MEDICATION Onset of action is rapid. Give dose 5-10 minutes before meal. Have meal at bedside. insulin lispro (humaLOG/ADMELOG) injection 0-12 Units 0-12 Units, Subcutaneous, 3 times daily before meals, First dose on Sun10/28/24 at 0930, HIGH ALERT MEDICATION Given 11/02/2024 5:59 PM EDT 2 Units Right Anterior Thigh Given 11/02/2024 3:35 PM EDT 4 Units Ot her Given 11/01/2024 5:18 PM EDT 7 Units Ri ght Arm insulin NPH (HumuLIN N) injection 10 Units 10 Units, Subcutaneous, 2 times daily, First dose on Sun10/28/24 at 0930, Do not hold medication unless instructed by provider. HIGH ALERT MEDICATION Given 10/29/2024 7:51 PM EDT 10 Units Abdominal Tissue Given 10/29/2024 11:45 AM EDT 10 Units R ight Arm Given 10/28/2024 8:07 PM EDT 10 Units Ri ght Arm insulin NPH (HumuLIN N) injection 7 Units 7 Units, Subcutaneous, Every morning, First dose (after last modification) on Sun10/30/24 at 0930, Do not hold medication unless instructed by provider. HIGH ALERT MEDICATION Given 10/31/2024 8:46 AM EDT 7 Units Abdom inal Tissue Given 10/30/2024 9:37 AM EDT 7 Units Le ft Arm isavuconazonium sulfate (CRESEMBA) 372 mg in sodium chloride 0.9 % 250 mL IVPB 372 mg, Intravenous, Administer over 60 Minutes, Every 8 hours, Flush IV line before and after infusion. Must be administered via an infusion set with a 0.2 micron in-line filter, Site of diagnosed infections (select all that apply): Abdominal/Pelvic, Select one of the indications: Anti-mold prophylaxis (first-line options contraindicated) Rate/Dose Verify 10/27/2024 10:00 AM EDT 250 mL/hr New Bag 10/27/2024 9:03 AM EDT 372 mg 250 mL/hr Rate/Dose Verify 10/27/2024 1:40 AM EDT 250 mL/ hr levothyroxine (SYNTHROID) tablet 75 mcg 75 mcg, Oral, Daily6, First dose on Sun10/28/24 at 0930, Please hold tube feeds 30 minutes before and 90 minutes after levothyroxine administration. Given 11/02/2024 5:43 AM EDT 75 mcg Given 11/01/2024 6:14 AM EDT 75 mcg Given 10/31/2024 6:14 AM EDT 75 mcg lidocaine (LIDODERM) 5 % 2 patch 2 patch, Transdermal, Daily, First dose on Sun10/30/24 at 0900, LEAVE PATCH ON FOR 12 HOURS,THEN REMOVE FOR 12 HOURS. linezolid (ZYVOX) tablet 600 mg 600 mg, Oral, Every 12 hours scheduled (2 times per day), First dose on Sun11/02/24 at 1130 Given 11/02/2024 12:19 PM EDT 600 mg loratadine (CLARITIN) tablet 10 mg 10 mg, Oral, Daily, First dose on Sun10/28/24 at 0930 Given 11/02/2024 11:42 AM EDT 10 mg Given 11/01/2024 10:17 AM EDT 10 mg Given 10/31/2024 8:51 AM EDT 10 mg magnesium sulfate in sterile water 100 mL IVPB 4 g 4 g, Intravenous, at 25 mL/hr, Once, On Sun10/26/24 at 0800, For 1 dose Restarted 10/26/2024 11:28 AM EDT 25 mL/hr Rate/Dose Verify 10/26/2024 11:00 AM EDT 25 mL/ hr Rate/Dose Verify 10/26/2024 10:00 AM EDT 25 mL/ hr magnesium sulfate in sterile water 100 mL IVPB 4 g 4 g, Intravenous, at 25 mL/hr, Once, On Sun10/27/24 at 0930, For 1 dose New Bag 10/27/2024 10:10 AM EDT 4 g 25 mL/hr magnesium sulfate in sterile water 50 mL IVPB 2 g 2 g, Intravenous, Administer over 120 Minutes, Once, On Sun11/01/24 at 0830, For 1 dose New Bag 11/01/2024 10:57 AM EDT 2 g 25 mL/hr melatonin tablet Tab 6 mg 6 mg, Oral, At Bedtime (2100), First dose on Sun10/28/24 at 2100, FOR INSOMNIA Given 10/30/2024 8:56 PM EDT 6 mg Given 10/29/2024 8:01 PM EDT 6 mg methocarbamoL (ROBAXIN) injection 1,000 mg 1,000 mg, Intravenous, Once, On Sun10/28/24 at 1500, For 1 dose, May be administered slow IV Push; no faster than 3 mL/min. Do not exceed 3 grams per 24 hours. Contraindicated in patients with renal dysfunction. Given 10/28/2024 3:33 PM EDT 1,000 mg methocarbamoL (ROBAXIN) tablet 1,000 mg 1,000 mg, Oral, 4 times a day, First dose on Sun10/28/24 at 0900 Given 11/02/2024 5:59 PM EDT 1,000 mg Given 11/02/2024 11:41 AM EDT 1,000 mg Given 11/01/2024 9:19 PM EDT 1,000 mg methylene blue (PROVAYBLUE) 250 mg in dextrose 5% in water (D5W) 250 mL infusion 0.25 mg/kg/hr 122.5 kg (30.625 mL/hr, rounded to 30.6 mL/hr), Intravenous, Continuous, Please contact clinical pharmacy if continuing infusion beyond 12 hours. Rate/Dose Verify 10/26/2024 3:04 PM EDT 0.25 mg/kg/hr 30.6 mL/hr Rate/Dose Verify 10/26/2024 2:45 PM EDT 0.25 mg/kg/hr 30.6 mL/hr Rate/Dose Verify 10/26/2024 2:15 PM EDT 0.25 mg/kg/hr 30.6 mL/hr methylPREDNISolone sod suc(PF) (SOLU-medrol) SolR 125 mg 125 mg, Intravenous, Once, On Sun10/28/24 at 0900, For 1 dose, POD #2 - Dose. Mix until dissolved and use immediately. MIX THOROUGHLY PRIOR TO ADMINISTRATION. Given 10/28/2024 8:31 AM EDT 125 mg methylPREDNISolone sod suc(PF) (SOLU-medrol) SolR 50 mg 50 mg, Intravenous, Once, On Sun10/30/24 at 0900, For 1 dose, POD #4 - Dose. Mix until dissolved and use immediately. MIX THOROUGHLY PRIOR TO ADMINISTRATION. Given 10/30/2024 9:41 AM EDT 50 mg methylPREDNISolone sod suc(PF) (SOLU-medrol) SolR 60 mg 60 mg, Intravenous, Once, On Sun10/29/24 at 0900, For 1 dose, POD # 3 - Dose. Mix until dissolved and use immediately. MIX THOROUGHLY PRIOR TO ADMINISTRATION. Given 10/29/2024 8:23 AM EDT 60 mg micafungin (MYCAMINE) 50 mg in sodium chloride 0.9 % 100 mL [id number] IVPB 50 mg, Intravenous, at 100 mL/hr, Every 24 hours, First dose on Sun10/27/24 at 1400, PROTECT FROM LIGHT FLUSH LINE w/NSS PRIOR TO ADMINISTRATION Use [id number] Adapter - Mix Thoroughly Before Administration Rate/Dose Verify 10/29/2024 4:00 PM EDT 100 mL/hr New Bag 10/29/2024 3:07 PM EDT 50 mg 100 mL/hr Rate/Dose Verify 10/28/2024 5:00 PM EDT 100 mL/ hr mycophenolate (CELLCEPT) 500 mg in dextrose 5% in water (D5W) 50 mL IVPB 500 mg, Intravenous, Administer over 2 Hours, 2 times daily, LEVEL 2 HAZARDOUS MEDICATION New Bag 10/29/2024 9:50 AM EDT 500 mg 25 mL/hr New Bag 10/28/2024 9:04 PM EDT 500 mg 25 mL/hr Rate/Dose Verify 10/28/2024 10:30 AM EDT 25 mL/ hr mycophenolate (CELLCEPT) capsule 1,000 mg 1,000 mg, Oral, Once, On Sun10/25/24 at 2100, For 1 dose, Give in pre-op area, prior to induction. LEVEL 2 HAZARDOUS MEDICATION, Pre-op Given 10/25/2024 10:12 PM EDT 1,000 mg mycophenolate (CELLCEPT) capsule 500 mg 500 mg, Oral, 2 times daily, First dose on Sun10/29/24 at 2100, LEVEL 2 HAZARDOUS MEDICATION Given 11/02/2024 11:41 AM EDT 500 mg Given 11/01/2024 9:19 PM EDT 500 mg Given 11/01/2024 10:18 AM EDT 500 mg NIFEdipine (PROCARDIA-XL) 24 hr tablet 30 mg 30 mg, Oral, Daily, First dose on Sun10/31/24 at 1630, DO NOT CRUSH Given 11/02/2024 11:41 AM EDT 30 mg Given 11/01/2024 10:18 AM EDT 30 mg Given 10/31/2024 6:43 PM EDT 30 mg norepinephrine (LEVOPHED) 16 mg/250 mL (64 mcg/mL) infusion Intravenous, at 0-28.1 mL/hr, Continuous, Starting on Sun10/26/24 at 0630, FOR CENTRAL LINE USE ONLY, Initial starting rate: 2 mcg/min, Titrate by: 0.5 - 5 mcg/min, Titration interval: no more frequent than: 2 minutes, Clinical Goal: MAP greater than or equal to 65 mmHg, Contact Provider: If goals cannot be maintained at highest permissible dose Restarted 10/28/2024 4:52 AM EDT 3 mcg/min 2.8 mL /hr Rate/Dose Change 10/28/2024 1:00 AM EDT 3 mcg/min 2.8 mL/ hr Rate/Dose Change 10/27/2024 11:18 PM EDT 4 mcg/min 3.8 mL /hr OMNIPAQUE (iohexol) 240 mg iodine/mL 50 mL 50 mL, Oral, IMG once as needed, contrast, Starting on Sun10/31/24 at 1634, For 1 dose, RESTRICTED FOR ENTERAL USE ONLY. Given 10/31/2024 4:08 PM EDT 50 mLs ondansetron (ZOFRAN) injection 4 mg 4 mg, Intravenous, Every 6 hours PRN, Nausea and/or Vomiting, Starting on Sun10/29/24 at 2103 Given 10/29/2024 8:51 PM EDT 4 mg oxyCODONE (ROXICODONE) immediate release tablet 10 mg 10 mg, Oral, Every 4 hours PRN, severe pain (NRS 7-10) or if patient is non-communicative (CPOT 6-8), Starting on Sun10/28/24 at 1650, If on IV and PO pain medications, use IV if patient cannot tolerate oral. Given 10/31/2024 6:16 AM EDT 10 mg Given 10/31/2024 1:49 AM EDT 10 mg Given 10/30/2024 4:06 PM EDT 10 mg pantoprazole (PROTONIX) EC tablet 40 mg 40 mg, Oral, Daily6, First dose on Sun10/28/24 at 0930, Do Not Crush Given 11/02/2024 5:43 AM EDT 40 mg Given 11/01/2024 6:14 AM EDT 40 mg Given 10/31/2024 6:14 AM EDT 40 mg pantoprazole (PROTONIX) injection 40 mg 40 mg, Intravenous, Daily6, First dose on Sun10/27/24 at 2100, Dilute each 40 mg vial with 10 mL of Normal Saline Given 10/27/2024 9:00 PM EDT 40 mg polyethylene glycol (MIRALAX) packet 17 g 17 g, Oral, 2 times daily, First dose on Sun10/29/24 at 1400, On hold since Sun11/02/2024 at 0634 until manually unheld Given 11/01/2024 10:18 AM EDT 17 g Given 10/31/2024 8:52 AM EDT 17 g Given 10/30/2024 8:58 PM EDT 17 g potassium chloride (KCl)/Sterile water 50 mL 20 mEq/50 mL IVPB 20 mEq 20 mEq, Intravenous, Administer over 60 Minutes, Every hour, First dose on Sun10/26/24 at 0830, For 3 doses, CENTRAL LINE: potassium chloride 60 mEq IVPB replacement (20 mEq/50 mL Q1h x 3) MAX INFUSION RATE VIA CENTRAL LINE IS 20 mEq/hr (50 mL/hr). Cardiac monitoring required when infused at 20 mEq/hr. Rate/Dose Verify 10/26/2024 11:00 AM EDT 50 m L/hr New Bag 10/26/2024 10:20 AM EDT 20 mEq 50 mL/hr Rate/Dose Verify 10/26/2024 10:00 AM EDT 50 mL/ hr potassium chloride (KCl)/Sterile water 50 mL 20 mEq/50 mL IVPB 20 mEq 20 mEq, Intravenous, Administer over 60 Minutes, Every hour, First dose on Sun10/26/24 at 1330, For 3 doses, CENTRAL LINE: potassium chloride 60 mEq IVPB replacement (20 mEq/50 mL Q1h x 3) MAX INFUSION RATE VIA CENTRAL LINE IS 20 mEq/hr (50 mL/hr). Cardiac monitoring required when infused at 20 mEq/hr. Rate/Dose Verify 10/26/2024 3:56 PM EDT 50 mL /hr New Bag 10/26/2024 3:34 PM EDT 20 mEq 50 mL/hr New Bag 10/26/2024 2:34 PM EDT 20 mEq 50 mL/hr potassium chloride (KCl)/Sterile water 50 mL 20 mEq/50 mL IVPB 20 mEq 20 mEq, Intravenous, Administer over 60 Minutes, every 1 hour x 2, First dose on Sun10/26/24 at 1800, For 2 doses, CENTRAL LINE: potassium chloride 20 mEq IVPB replacement (20 mEq/50 mL Q1h x 1) MAX INFUSION RATE VIA CENTRAL LINE IS 20 mEq/hr (50 mL/hr). Cardiac monitoring required when infused at 20 mEq/hr. Rate/Dose Verify 10/26/2024 8:59 PM EDT 50 mL /hr Rate/Dose Verify 10/26/2024 8:12 PM EDT 50 mL/h r New Bag 10/26/2024 7:59 PM EDT 20 mEq 50 mL/hr potassium chloride (KCl)/Sterile water 50 mL 20 mEq/50 mL IVPB 20 mEq 20 mEq, Intravenous, Administer over 60 Minutes, Every hour, First dose on Sun10/27/24 at 1300, For 3 doses, FOR INFUSION VIA CENTRAL LINE ONLY MAX INFUSION RATE VIA CENTRAL LINE IS 20 mEq/hr (50 mL/hr). Cardiac monitoring required when infused at 20 mEq/hr. New Bag 10/27/2024 2:40 PM EDT 20 mEq 50 mL/hr New Bag 10/27/2024 1:37 PM EDT 20 mEq 50 mL/hr New Bag 10/27/2024 12:31 PM EDT 20 mEq 50 mL/hr potassium chloride (KCl)/Sterile water 50 mL 20 mEq/50 mL IVPB 20 mEq 20 mEq, Intravenous, Administer over 60 Minutes, every 1 hour x 2, First dose on Sun10/27/24 at 1930, For 2 doses, FOR INFUSION VIA CENTRAL LINE ONLY MAX INFUSION RATE VIA CENTRAL LINE IS 20 mEq/hr (50 mL/hr). Cardiac monitoring required when infused at 20 mEq/hr. New Bag 10/27/2024 10:05 PM EDT 20 mEq 50 mL/hr New Bag 10/27/2024 8:56 PM EDT 20 mEq 50 mL/hr potassium chloride (KCl)/Sterile water 50 mL 20 mEq/50 mL IVPB 20 mEq 20 mEq, Intravenous, Administer over 60 Minutes, every 1 hour x 2, First dose (after last reorder) on Sun10/28/24 at 0300, For 2 doses, FOR INFUSION VIA CENTRAL LINE ONLY MAX INFUSION RATE VIA CENTRAL LINE IS 20 mEq/hr (50 mL/hr). Cardiac monitoring required when infused at 20 mEq/hr. New Bag 10/28/2024 4:08 AM EDT 20 mEq 50 mL/hr New Bag 10/28/2024 3:08 AM EDT 20 mEq 50 mL/hr potassium chloride (KCl)/Sterile water 50 mL 20 mEq/50 mL IVPB 20 mEq 20 mEq, Intravenous, Administer over 60 Minutes, Every hour, First dose (after last reorder) on Sun10/28/24 at 1500, For 3 doses, FOR INFUSION VIA CENTRAL LINE ONLY MAX INFUSION RATE VIA CENTRAL LINE IS 20 mEq/hr (50 mL/hr). Cardiac monitoring required when infused at 20 mEq/hr. Rate/Dose Verify 10/28/2024 7:00 PM EDT 50 mL/hr New Bag 10/28/2024 6:32 PM EDT 20 mEq 50 mL/hr Rate/Dose Verify 10/28/2024 6:00 PM EDT 50 mL/h r potassium chloride (KCl)/Sterile water 50 mL 20 mEq/50 mL IVPB 20 mEq 20 mEq, Intravenous, Administer over 60 Minutes, Every hour, First dose (after last reorder) on Sun10/29/24 at 1000, For 3 doses, FOR INFUSION VIA CENTRAL LINE ONLY MAX INFUSION RATE VIA CENTRAL LINE IS 20 mEq/hr (50 mL/hr). Cardiac monitoring required when infused at 20 mEq/hr. New Bag 10/29/2024 12:34 PM EDT 20 mEq 50 mL/hr New Bag 10/29/2024 11:06 AM EDT 20 mEq 50 mL/hr New Bag 10/29/2024 10:00 AM EDT 20 mEq 50 mL/hr potassium chloride (KLOR-CON M10) CR tablet 35 mEq 35 mEq, Oral, Once, On 11/01/24 at 0830, For 1 dose, FOR PATIENTS UNABLE TO SWALLOW LARGE TABLETS, but can take liquids orally: Place tablet(s) in room temperature or warm water (@ 2-4 ounces) and allow to disintegrate for ~ 30 seconds. Then stir well and administer immediately before particles settle. NOTE: not all particles will go into solution. DO NOT CRUSH or CHEW; TABLET(S) MAY BE SPLIT Given 11/01/2024 10:19 AM EDT 35 mEq potassium chloride (KLOR-CON M20) CR tablet 20 mEq 20 mEq, Oral, Once, On 11/01/24 at 2230, For 1 dose, FOR PATIENTS UNABLE TO SWALLOW LARGE TABLETS, but can take liquids orally: Place tablet(s) in room temperature or warm water (@ 2-4 ounces) and allow to disintegrate for ~ 30 seconds. Then stir well and administer immediately before particles settle. NOTE: not all particles will go into solution. DO NOT CRUSH or CHEW; TABLET(S) MAY BE SPLIT Given 11/01/2024 9:20 PM EDT 20 mEq potassium chloride (KLOR-CON M20) CR tablet 40 mEq 40 mEq, Oral, Once, On 11/01/24 at 1830, For 1 dose, FOR PATIENTS UNABLE TO SWALLOW LARGE TABLETS, but can take liquids orally: Place tablet(s) in room temperature or warm water (@ 2-4 ounces) and allow to disintegrate for ~ 30 seconds. Then stir well and administer immediately before particles settle. NOTE: not all particles will go into solution. DO NOT CRUSH or CHEW; TABLET(S) MAY BE SPLIT Given 11/01/2024 7:01 PM EDT 40 mEq predniSONE (DELTASONE) tablet 20 mg 20 mg, Oral, Daily, First dose on Sun11/03/24 at 0900, Start daily PO dose on POD #8 predniSONE (DELTASONE) tablet 25 mg 25 mg, Oral, Once, On Sun11/02/24 at 0900, For 1 dose, POD #7 Given 11/02/2024 11:41 AM EDT 25 mg predniSONE (DELTASONE) tablet 30 mg 30 mg, Oral, Once, On 11/01/24 at 0900, For 1 dose, POD #6 Given 11/01/2024 10:20 AM EDT 30 mg predniSONE (DELTASONE) tablet 40 mg 40 mg, Oral, Once, On Sun10/31/24 at 0900, For 1 dose, POD #5 Given 10/31/2024 8:51 AM EDT 40 mg propofol (DIPRIVAN) infusion 10 mg/mL Intravenous, at 0-14.7 mL/hr, Continuous, Starting on Sun10/26/24 at 0630, Do not administer through the same I.V. catheter with blood or plasma. Tubing and any unused portions of propofol vials should be discarded after 12 hours. If patient is paralyzed: Do not titrate - follow policy [id number]. Start infusion if unable to maintain goal RASS with fentanyl or other analgesic medications alone When propofol infusion is < 10 mcg/kg/min consider discontinuation of infusion. Post-sedation vacation, resume infusion at most recent recorded rate if patient not meeting clinical goal defined in order. Patient must have secured airway including mechanical ventilation, Is this patient's airway secure and mechanically ventilated? Yes, Initial starting rate: 10 mcg/kg/min, Titrate by: 2 - 20 mcg/kg/min, Titration interval: no more frequent than: 2 minutes, Clinical Indication: RASS, Clinical RASS Goal: -1 to +1, Contact Provider: if goal cannot be maintained at highest possible dose Rate/Dose Verify 10/27/2024 10:00 AM EDT 10 mcg/kg/min 7.4 mL/hr Rate/Dose Change 10/27/2024 9:52 AM EDT 10 mcg/kg/min 7.4 mL/hr Rate/Dose Change 10/27/2024 9:08 AM EDT 15 mcg/kg/min 11 m L/hr senna-docusate (SENNA-S) 8.6-50 mg per tablet 1 tablet 1 tablet, Oral, 2 times daily, First dose on Sun10/29/24 at 1400 Given 11/02/2024 11:42 AM EDT 1 tablet Given 11/01/2024 9:20 PM EDT 1 tablet Given 11/01/2024 10:19 AM EDT 1 tablet sod phos di, mono-K phos mono (K-PHOS NEUTRAL) 250 mg tablet Tab 250 mg 250 mg, Oral, Once, On 11/01/24 at 2300, For 1 dose, Phosphorus Level 1.8 - 2.9: Weight greater than 100 k tablets every 2 hours x 2 doses (4 tablets), followed by 1 tablet = total dose of 5 tablets (Phosphorus 40mmol, Potassium 5.5 mEq). May give orally or per feeding tube Each 250 mg tablet of KPhos Neutral contains: Phosphorus = 8 mmol; Sodium = 13 mEq; Potassium = 1.1 mEq Given 11/01/2024 11:27 PM EDT 250 mg sod phos di, mono-K phos mono (K-PHOS NEUTRAL) 250 mg tablet Tab 500 mg 500 mg, Oral, Every 2 hours, First dose on 11/01/24 at 1900, For 2 doses, Phosphorus Level 1.8 - 2.9 Weight greater than 100 k tablets every 2 hours x 2 doses (4 tablets), followed by 1 tablet = total dose of 5 tablets (Phosphorus 40mmol, Potassium 5.5 mEq). May give orally or per feeding tube. Each 250 mg tablet of KPhos Neutral contains: Phosphorus = 8 mmol; Sodium = 13 mEq; Potassium = 1.1 mEq Given 11/01/2024 9:19 PM EDT 500 mg Given 11/01/2024 7:01 PM EDT 500 mg sodium bicarbonate tablet 1,300 mg 1,300 mg, Oral, 3 times daily, First dose on Sun10/31/24 at 1300 Given 11/02/2024 3:31 PM EDT 1,300 mg Given 11/02/2024 11:41 AM EDT 1,300 mg Given 11/01/2024 9:19 PM EDT 1,300 mg sodium chloride 0.45% (1/2 NS) infusion 0-999 mL/hr, Intravenous, Continuous PRN, Other, Use as urine replacement only when urine output is greater than 150 ml/hr. Replace 2/3 last hour urine output with 0.45% NaCl, Starting on Sun10/27/24 at 0800, Post-op, Use as urine replacement only when urine output is greater than 150 ml/hr. Replace 2/3 last hour urine output with 0.45% NaCl Rate/Dose Verify 10/28/2024 10:00 AM EDT 120 mL/hr Rate/Dose Change 10/28/2024 9:02 AM EDT 120 mL/hr 120 mL/ hr Rate/Dose Verify 10/28/2024 9:00 AM EDT 127 mL/ hr sodium chloride 0.9 % IV infusion 75 mL/hr, Intravenous, Continuous, Starting on Sun10/26/24 at 0630 Rate/Dose Verify 10/28/2024 7:00 PM EDT 75 mL/hr Rate/Dose Verify 10/28/2024 6:00 PM EDT 75 mL/h r Rate/Dose Verify 10/28/2024 5:00 PM EDT 75 mL/h r sodium chloride 0.9 % IV infusion 20 mL/hr, Intravenous, Continuous, Starting on Sun10/27/24 at 0030, For 12 hours, Normal Saline 0.9% run at KVO only during administration of blood products. New Bag 10/27/2024 12:45 AM EDT 20 mL/hr 20 mL/hr sodium chloride 0.9 % IV infusion 20 mL/hr, Intravenous, Continuous, Starting on Sun10/27/24 at 0100, For 12 hours, Normal Saline 0.9% run at KVO only during administration of blood products. New Bag 10/27/2024 1:35 AM EDT 20 mL/hr 20 mL/hr sodium chloride 0.9 % IV infusion 50-150 mL/hr, Intravenous, Continuous, Starting on Sun10/27/24 at 0830, Post-op, IV fluid titration parameters When urine output is less than 50 mL/hr, run 0.9% Sodium Chloride infusion at a rate of 50 mL/hr When urine output is between 50-150 mL/hr, run 0.9% Sodium Chloride infusion at a rate of 100 mL/hr When urine output is greater than 150 mL.hr, run 0.9% Sodium Chloride infusion at a rate of 150 mL/hr and replace 2/3 (two-thirds) of last hourly urine output with 0.45% Sodium Chloride Rate/Dose Verify 10/28/2024 10:00 AM EDT 150 mL/hr Rate/Dose Verify 10/28/2024 9:00 AM EDT 150 mL/ hr Rate/Dose Change 10/28/2024 8:05 AM EDT 150 mL/ hr sodium chloride 0.9 % IV infusion 20 mL/hr, Intravenous, Continuous, Starting on Sun10/28/24 at 0100, For 12 hours, Normal Saline 0.9% run at KVO only during administration of blood products. New Bag 10/28/2024 2:05 AM EDT 20 mL/h r 20 mL/hr sulfamethoxazole-trimethoprim (BACTRIM) 400-80 mg per tablet 1 tablet 1 tablet, Oral, Daily, First dose on Sun10/29/24 at 0900 Given 11/02/2024 11:41 AM EDT 1 tablet Given 11/01/2024 10:21 AM EDT 1 tablet Given 10/31/2024 8:51 AM EDT 1 tablet tacrolimus (PROGRAF) capsule 2 mg 2 mg, Oral, 2 times daily, First dose on Sun10/27/24 at 2100, LEVEL 2 HAZARDOUS MEDICATION Given 10/28/2024 8:31 AM EDT 2 mg Given 10/27/2024 9:00 PM EDT 2 mg tacrolimus (PROGRAF) capsule 3 mg 3 mg, Oral, 2 times daily, First dose (after last modification) on Sun10/30/24 at 0900, LEVEL 2 HAZARDOUS MEDICATION Given 10/30/2024 9:31 AM EDT 3 mg tacrolimus (PROGRAF) capsule 3 mg 3 mg, Oral, Two times a day, First dose (after last modification) on Tish 10/30/24 at 1900, LEVEL 2 HAZARDOUS MEDICATION Given 10/31/2024 6:45 AM EDT 3 mg Given 10/30/2024 7:46 PM EDT 3 mg tacrolimus (PROGRAF) capsule 4 mg 4 mg, Oral, Two times a day, First dose (after last modification) on Sun10/31/24 at 1900, LEVEL 2 HAZARDOUS MEDICATION Given 11/01/2024 6:49 AM EDT 4 mg Given 10/31/2024 6:43 PM EDT 4 mg tacrolimus (PROGRAF) capsule 5 mg 5 mg, Oral, 2 times daily, First dose (after last modification) on Sun10/28/24 at 2100, LEVEL 2 HAZARDOUS MEDICATION Given 10/29/2024 8:16 AM EDT 5 mg Given 10/28/2024 8:19 PM EDT 5 mg tacrolimus (PROGRAF) capsule 5 mg 5 mg, Oral, Two times a day, First dose (after last modification) on Sun11/01/24 at 1900, LEVEL 2 HAZARDOUS MEDICATION Given 11/02/2024 5:55 AM EDT 5 mg Given 11/01/2024 7:01 PM EDT 5 mg tacrolimus (PROGRAF) capsule 6 mg 6 mg, Oral, Two times a day, First dose (after last modification) on Sun11/02/24 at 1900, LEVEL 2 HAZARDOUS MEDICATION Given 11/02/2024 5:58 PM EDT 6 mg valGANciclovir (VALCYTE) tablet 450 mg 450 mg, Oral, Daily, First dose on Sun10/29/24 at 0900, LEVEL 2 HAZARDOUS MEDICATION Given 11/02/2024 11:40 AM EDT 450 mg Given 11/01/2024 10:20 AM EDT 450 mg Given 10/31/2024 8:52 AM EDT 450 mg vasopressin (VASOSTRICT) 40 units in sodium chloride 0.9% 100 mL infusion Intravenous, at 4.5 mL/hr, Continuous, Starting on Sun10/26/24 at 0630, CENTRAL LINE PREFERRED Rate/Dose Verify 10/27/2024 10:00 AM EDT 0.03 Units/min 4.5 mL/hr Rate/Dose Verify 10/27/2024 8:57 AM EDT 0.03 Units/min 4.5 mL/hr Rate/Dose Verify 10/27/2024 8:47 AM EDT 0.03 Units/min 4.5 mL/hr documented in this encounter Active and Recently Administered Medications Times are shown in EDT. Scheduled Medication Order 10/31/2024 11/01/2024 11/02/2024 acetaminophen (TYLENOL) tablet 975 mg 975 mg, Oral, Every 8 hours, First dose on Sun10/28/24 at 1200 0614 (Given - Provider: Vandana Vilchis RN)1255 (Given - Provider: Paulette Flannery, ЮЛИЯ)2056 (Given - Provider: Yvonne Gale, ЮЛИЯ) 0620 (Given - Provider: Yvonne Gale, ЮЛИЯ)1017 (Given - Provider: Paulette Flannery, ЮЛИЯ)2119 (Given - Provider: Yvonne Gale, ЮЛИЯ) 0543 (Given - Provider: Yvonne Gale, ЮЛИЯ)1219 (Given - Provider: Paulette Flannery, ЮЛИЯ) albumin human 25% (COMPLETED) 50 mL, Intravenous, Every 30 min, First dose on Sun10/31/24 at 2100, For 2 doses, In Emergencies, may administer as rapidly as needed to improve clinical status., Select indication for use: Hepatic Resection/Liver Transplantation, at 100 mL/hr 205 (New Bag - Provider: Yvonne Gale RN)214 (New Bag - Provider: Yvonne Gale, ЮЛИЯ) albumin human 25% (COMPLETED) 50 mL, Intravenous, Every 30 min, First dose (after last reorder) on Sun11/01/24 at 0900, For 3 doses, In Emergencies, may administer as rapidly as needed to improve clinical status., Select indication for use: Hepatic Resection/Liver Transplantation, at 100 mL/hr 1050 (New Bag - Provider: Paulette Flannery RN)1050 (New Bag - Provider: Paulette Flannery, ЮЛИЯ)1155 (New Bag - Provider: Paulette Flannery, ЮЛИЯ) albumin human 25% (COMPLETED) 50 mL, Intravenous, Every 30 min, First dose on Sun11/01/24 at 1900, For 1 dose, In Emergencies, may administer as rapidly as needed to improve clinical status., Select indication for use: Hepatic Resection/Liver Transplantation, at 100 mL/hr 1856 (New Bag - Provider: Paulette Flannery RN) citric acid-sodium citrate (BICITRA) solution 30 mL (CANCELED) 30 mL, Oral, 2 times daily, First dose on Sun10/29/24 at 0900 0850 (Given - Provider: Paulette Flannery RN) eye ointment ophth oint Both Eyes, 2 times daily, First dose on 10/26/24 at 1230 1029 (Given - Provider: Paulette Flannery RN)2057 (Not Given - Provider: Yvonne Gale RN - Reason: Patient/family refused) 1029 (Not Given - Provider: Paulette Flannery RN - Reason: Patient/family refused)2122 (Not Given - Provider: Yvonne Gale RN - Reason: Patient/family refused) 1147 (Not Given - Provider: Paulette Flannery RN - Reason: Patient/family refused) fluconazole (DIFLUCAN) tablet 200 mg 200 mg, Oral, Daily, First dose on Tish 10/30/24 at 1000, DO NOT CRUSH OR CHEW. 0852 (Given - Provider: Paulette Flannery RN) 1018 (Given - Provider: Paulette Flannery RN) 1141 (Given - Provider: Paulette Flannery RN) FLUoxetine (PROZAC) capsule 20 mg 20 mg, Oral, Daily, First dose on Sun10/28/24 at 0930 0852 (Given - Provider: Paulette Flannery RN) 1018 (Given - Provider: Paulette Flannery RN) 1142 (Given - Provider: Paulette Flannery, ЮЛИЯ) furosemide (LASIX) injection 40 mg (COMPLETED) 40 mg, Intravenous, Once, On 11/01/24 at 1000, For 1 dose, Give doses of 100mg or less over 5 minutes. For doses over 100mg, give at rate of up to 20mg/min. 1022 (Given - Provider: Paulette Flannery RN) furosemide (LASIX) injection 40 mg (COMPLETED) 40 mg, Intravenous, Once, On 11/01/24 at 1600, For 1 dose, Give doses of 100mg or less over 5 minutes. For doses over 100mg, give at rate of up to 20mg/min. 1714 (Given - Provider: Paulette Flannery RN) furosemide (LASIX) injection 40 mg (COMPLETED) 40 mg, Intravenous, Once, On Sun11/02/24 at 0900, For 1 dose, Give doses of 100mg or less over 5 minutes. For doses over 100mg, give at rate of up to 20mg/min. 1148 (Given - Provider: Paulette Flannery RN) gabapentin (NEURONTIN) capsule 100 mg 100 mg, Oral, 3 times daily, First dose on Sun10/31/24 at 0900 1046 (Given - Provider: Paulette Flannery RN)1433 (Given - Provider: Paulette Flannery RN)2057 (Given - Provider: Yvonne Gale RN) 1021 (Given - Provider: Paulette Flannery RN)1344 (Given - Provider: Paulette Flannery RN)2120 (Given - Provider: Yvonne Gale RN) 1149 (Given - Provider: Paulette Flannery RN)1531 (Given - Provider: Meka Montalvo, ЮЛИЯ) heparin (porcine) injection 5,000 Units 5,000 Units, Subcutaneous, Every 8 hours scheduled (3 times per day), First dose on Sun10/26/24 at 0600 0614 (Given - Provider: Vandana Vilchis RN)1255 (Given - Provider: Paulette Flannery, ЮЛИЯ)2056 (Given - Provider: Yvonne Gale, ЮЛИЯ) 0614 (Given - Provider: Yvonne Gale, ЮЛИЯ)1345 (Given - Provider: Paulette Flannery RN)2119 (Given - Provider: Yvonne Gale, ЮЛИЯ) 0543 (Given - Provider: Yvonne Gale, ЮЛИЯ)1527 (Not Given - Provider: Meka Montalvo RN - Reason: Patient/family refused) insulin lispro (humaLOG/ADMELOG) injection 0-10 Units(Linked Group 1) 0-10 Units, Subcutaneous, At Bedtime (2100), First dose on Sun10/28/24 at 2100, HIGH ALERT MEDICATION Onset of action is rapid. Give dose 5-10 minutes before meal. Have meal at bedside. 2127 (Not Given - Provider: Yvonne Gale RN - Reason: Order parameters not met) 2126 (Not Given - Provider: Yvonne Gale RN - Reason: Order parameters not met) insulin lispro (humaLOG/ADMELOG) injection 0-12 Units 0-12 Units, Subcutaneous, 3 times daily before meals, First dose on Sun10/28/24 at 0930, HIGH ALERT MEDICATION 1029 (Not Given - Provider: Paulette Flannery RN - Reason: Order parameters not met)1234 (Not Given - Provider: Paulette Flannery RN - Reason: Order parameters not met)1843 (Given - Provider: Vivi Newton RN) 1022 (Given - Provider: Paulette Flannery RN)1313 (Not Given - Provider: Paulette Flannery RN - Reason: Order parameters not met)1718 (Given - Provider: Paulette Flannery RN) 0944 (Not Given - Provider: Paulette Flannery RN - Reason: Order parameters not met)1535 (Given - Provider: Meka Montalvo RN)1759 (Given - Provider: Paulette Flannery RN) insulin NPH (HumuLIN N) injection 7 Units (CANCELED) 7 Units, Subcutaneous, Every morning, First dose (after last modification) on Sun10/30/24 at 0930, Do not hold medication unless instructed by provider. HIGH ALERT MEDICATION 0846 (Given - Provider: Paulette Flannery RN) levothyroxine (SYNTHROID) tablet 75 mcg 75 mcg, Oral, Daily6, First dose on Sun10/28/24 at 0930, Please hold tube feeds 30 minutes before and 90 minutes after levothyroxine administration. 0614 (Given - Provider: Vandana Vilchis RN) 0614 (Given - Provider: Yvonne Gale RN) 0543 (Given - Provider: Yvonne Gale RN) lidocaine (LIDODERM) 5 % 2 patch 2 patch, Transdermal, Daily, First dose on Sun10/30/24 at 0900, LEAVE PATCH ON FOR 12 HOURS,THEN REMOVE FOR 12 HOURS. 0858 (Not Given - Provider: Paulette Flannery RN - Reason: Patient/family refused) 1029 (Not Given - Provider: Paulette Flannery RN - Reason: Patient/family refused) 1150 (Not Given - Provider: Paulette Flannery RN - Reason: Patient/family refused) lidocaine 10 mg/mL (1 %) injection 10 mL 10 mL, Subcutaneous, Once, On 11/02/24 at 0800, For 1 dose, For procedure with 1526 (Not Given - Provider: Meka Montalvo RN - Reason: Other - Comment: For procedure) linezolid (ZYVOX) tablet 600 mg 600 mg, Oral, Every 12 hours scheduled (2 times per day), First dose on Sun11/02/24 at 1130 1219 (Given - Provider: Paulette Flannery RN) loratadine (CLARITIN) tablet 10 mg 10 mg, Oral, Daily, First dose on Sun10/28/24 at 0930 0851 (Given - Provider: Paulette Flannery RN) 1017 (Given - Provider: Paulette Flannery RN) 1142 (Given - Provider: Paulette Flannery RN) magnesium sulfate in sterile water 50 mL IVPB 2 g (COMPLETED) 2 g, Intravenous, Administer over 120 Minutes, Once, On 11/01/24 at 0830, For 1 dose 1057 (New Bag - Provider: Paulette Flannery RN) melatonin tablet Tab 6 mg 6 mg, Oral, At Bedtime (2100), First dose on Sun10/28/24 at 2100, FOR INSOMNIA 2056 (Not Given - Provider: Yvonne Gale RN - Reason: Patient/family refused) 2121 (Not Given - Provider: Yvonne Gale RN - Reason: Patient/family refused) methocarbamoL (ROBAXIN) tablet 1,000 mg 1,000 mg, Oral, 4 times a day, First dose on Sun10/28/24 at 0900 0852 (Given - Provider: Paulette Flannery RN)1254 (Given - Provider: Paulette Flannery RN)1843 (Given - Provider: Vivi Newton RN)2340 (Given - Provider: Yvonne Gale RN - Comment: given at 184) 1018 (Given - Provider: Paulette Flannery RN)1344 (Given - Provider: Paulette Flannery, ЮЛИЯ)1714 (Given - Provider: Paulette Flannery RN)2118 (Given - Provider: Yvonne Gale RN) 1141 (Given - Provider: Paulette Flannery RN)1530 (Not Given - Provider: Meka Montalvo RN - Reason: Other - Comment: rtoo close to previous dose)175 (Given - Provider: Paulette Flannery RN) mycophenolate (CELLCEPT) capsule 500 mg 500 mg, Oral, 2 times daily, First dose on Sun10/29/24 at 2100, LEVEL 2 HAZARDOUS MEDICATION 0852 (Given - Provider: Paulette Flannery RN)2054 (Given - Provider: Yvonne Gale RN) 1018 (Given - Provider: Paulette Flannery RN)2118 (Given - Provider: Yvonne Gale RN) 114 (Given - Provider: Paulette Flannery RN) NIFEdipine (PROCARDIA-XL) 24 hr tablet 30 mg 30 mg, Oral, Daily, First dose on Sun10/31/24 at 1630, DO NOT CRUSH 1843 (Given - Provider: Vivi Newton RN) 1018 (Given - Provider: Paulette Flannery RN) 114 (Given - Provider: Paulette Flannery RN) pantoprazole (PROTONIX) EC tablet 40 mg 40 mg, Oral, Daily6, First dose on Sun10/28/24 at 0930, Do Not Crush 0614 (Given - Provider: Vandana Vilchis RN) 0614 (Given - Provider: Yvonne Gale, ЮЛИЯ) 0543 (Given - Provider: Yvonne Gale, ЮЛИЯ) polyethylene glycol (MIRALAX) packet 17 g 17 g, Oral, 2 times daily, First dose on Sun10/29/24 at 1400, On hold since Sun11/02/2024 at 0634 until manually unheld 0852 (Given - Provider: Paulette Flannery RN)2057 (Not Given - Provider: Yvonne Gale RN - Reason: Patient/family refused) 1018 (Given - Provider: Paulette Flannery RN)2121 (Not Given - Provider: Yvonne Gale RN - Reason: Patient/family refused) 0634 (Held by provider - Provider: Sveta Judge MD - Reason: Other - Comment: Multiple bowel movements)0900 (Automatically Held - Provider: Sveta Judge MD)2228 (Unheld by provider - Provider: Automatic Discharge Provider) potassium chloride (KLOR-CON M10) CR tablet 35 mEq (COMPLETED) 35 mEq, Oral, Once, On 11/01/24 at 0830, For 1 dose, FOR PATIENTS UNABLE TO SWALLOW LARGE TABLETS, but can take liquids orally: Place tablet(s) in room temperature or warm water (@ 2-4 ounces) and allow to disintegrate for ~ 30 seconds. Then stir well and administer immediately before particles settle. NOTE: not all particles will go into solution. DO NOT CRUSH or CHEW; TABLET(S) MAY BE SPLIT 101 (Given - Provider: Paulette Flannery RN) potassium chloride (KLOR-CON M20) CR tablet 20 mEq (COMPLETED)(Linked Group 2) 20 mEq, Oral, Once, On 11/01/24 at 2230, For 1 dose, FOR PATIENTS UNABLE TO SWALLOW LARGE TABLETS, but can take liquids orally: Place tablet(s) in room temperature or warm water (@ 2-4 ounces) and allow to disintegrate for ~ 30 seconds. Then stir well and administer immediately before particles settle. NOTE: not all particles will go into solution. DO NOT CRUSH or CHEW; TABLET(S) MAY BE SPLIT 2119 (Given - Provider: Yvonne Gale RN) potassium chloride (KLOR-CON M20) CR tablet 40 mEq (COMPLETED)(Linked Group 2) 40 mEq, Oral, Once, On 11/01/24 at 1830, For 1 dose, FOR PATIENTS UNABLE TO SWALLOW LARGE TABLETS, but can take liquids orally: Place tablet(s) in room temperature or warm water (@ 2-4 ounces) and allow to disintegrate for ~ 30 seconds. Then stir well and administer immediately before particles settle. NOTE: not all particles will go into solution. DO NOT CRUSH or CHEW; TABLET(S) MAY BE SPLIT 1900 (Given - Provider: Paulette Flannery RN) predniSONE (DELTASONE) tablet 20 mg(Linked Group 3) 20 mg, Oral, Daily, First dose on 11/03/24 at 0900, Start daily PO dose on POD #8 predniSONE (DELTASONE) tablet 25 mg (COMPLETED)(Linked Group 3) 25 mg, Oral, Once, On Sun11/02/24 at 0900, For 1 dose, POD #7 1141 (Given - Provider: Paulette Flannery RN) predniSONE (DELTASONE) tablet 30 mg (COMPLETED)(Linked Group 3) 30 mg, Oral, Once, On 11/01/24 at 0900, For 1 dose, POD #6 1020 (Given - Provider: Paulette Flannery RN) predniSONE (DELTASONE) tablet 40 mg (COMPLETED)(Linked Group 3) 40 mg, Oral, Once, On Sun10/31/24 at 0900, For 1 dose, POD #5 0851 (Given - Provider: Paulette Flannery RN) senna-docusate (SENNA-S) 8.6-50 mg per tablet 1 tablet 1 tablet, Oral, 2 times daily, First dose on Sun10/29/24 at 1400 0852 (Given - Provider: Paulette Flannery RN)2056 (Given - Provider: Yvonne Gale RN) 1019 (Given - Provider: Paulette Flannery RN)2120 (Given - Provider: Yvonne Gale RN) 1142 (Given - Provider: Paulette Flannery RN) sod phos di, mono-K phos mono (K-PHOS NEUTRAL) 250 mg tablet Tab 250 mg (COMPLETED)(Linked Group 4) 250 mg, Oral, Once, On 11/01/24 at 2300, For 1 dose, Phosphorus Level 1.8 - 2.9: Weight greater than 100 k tablets every 2 hours x 2 doses (4 tablets), followed by 1 tablet = total dose of 5 tablets (Phosphorus 40mmol, Potassium 5.5 mEq). May give orally or per feeding tube Each 250 mg tablet of KPhos Neutral contains: Phosphorus = 8 mmol; Sodium = 13 mEq; Potassium = 1.1 mEq 2327 (Given - Provider: Yvonne Gale RN) sod phos di, mono-K phos mono (K-PHOS NEUTRAL) 250 mg tablet Tab 500 mg (COMPLETED)(Linked Group 4) 500 mg, Oral, Every 2 hours, First dose on Sun11/01/24 at 1900, For 2 doses, Phosphorus Level 1.8 - 2.9 Weight greater than 100 k tablets every 2 hours x 2 doses (4 tablets), followed by 1 tablet = total dose of 5 tablets (Phosphorus 40mmol, Potassium 5.5 mEq). May give orally or per feeding tube. Each 250 mg tablet of KPhos Neutral contains: Phosphorus = 8 mmol; Sodium = 13 mEq; Potassium = 1.1 mEq 190 (Given - Provider: Paulette Flannery RN)2118 (Given - Provider: Yvonne Gale RN) sodium bicarbonate tablet 1,300 mg 1,300 mg, Oral, 3 times daily, First dose on Sun10/31/24 at 1300 1254 (Given - Provider: Paulette Flannery RN)2055 (Given - Provider: Yvonne Gale RN) 1019 (Given - Provider: Paulette Flannery RN)1344 (Given - Provider: Paulette Flannery RN)2119 (Given - Provider: Yvonne Gale RN) 1141 (Given - Provider: Paulette Flannery RN)1531 (Given - Provider: Meka Montalvo RN) sulfamethoxazole-trimeth oprim (BACTRIM) 400-80 mg per tablet 1 tablet 1 tablet, Oral, Daily, First dose on Sun10/29/24 at 0900 0851 (Given - Provider: Paulette Flannery RN) 1021 (Given - Provider: Paulette Flannery RN) 1141 (Given - Provider: Paulette Flannery RN) tacrolimus (PROGRAF) capsule 3 mg (CANCELED) 3 mg, Oral, Two times a day, First dose (after last modification) on Sun10/30/24 at 1900, LEVEL 2 HAZARDOUS MEDICATION 0645 (Given - Provider: Vandana Vilchis RN) tacrolimus (PROGRAF) capsule 4 mg (CANCELED) 4 mg, Oral, Two times a day, First dose (after last modification) on Sun10/31/24 at 1900, LEVEL 2 HAZARDOUS MEDICATION 1843 (Given - Provider: Vivi Newton RN) 0649 (Given - Provider: Yvonne Gale RN) tacrolimus (PROGRAF) capsule 5 mg (CANCELED) 5 mg, Oral, Two times a day, First dose (after last modification) on Sun11/01/24 at 1900, LEVEL 2 HAZARDOUS MEDICATION 1901 (Given - Provider: Paulette Flannery RN) 0555 (Given - Provider: Yvonne Gale RN) tacrolimus (PROGRAF) capsule 6 mg 6 mg, Oral, Two times a day, First dose (after last modification) on Sun11/02/24 at 1900, LEVEL 2 HAZARDOUS MEDICATION 1758 (Given - Provider: Paulette Flannery RN) valGANciclovir (VALCYTE) tablet 450 mg 450 mg, Oral, Daily, First dose on Sun10/29/24 at 0900, LEVEL 2 HAZARDOUS MEDICATION 0852 (Given - Provider: Paulette Flannery RN) 1020 (Given - Provider: Paulette Flannery RN) 1140 (Given - Provider: Paulette Flannery RN) PRN Medication Order 10/31/2024 11/01/2024 11/02/2024 bisacodyL (DULCOLAX) suppository 10 mg 10 mg, Rectal, Daily as needed, Constipation, Starting on Sun10/29/24 at 0936 dextrose 10%-water (D10W) IV soln(Linked Group 5) 12.5 g, Intravenous, Every 15 min PRN, Low blood sugar, for glucose < 70 and alert but can not be corrected, orally or via feeding tube, Starting on Sun10/28/24 at 0930, Recheck blood sugar in 15 minutes and repeat treatment if glucose still < 70. For Smart Pump: Set volume to be infused; 125 ml for 12.5 grams or 250 mL for 25 grams. dextrose 10%-water (D10W) IV soln(Linked Group 5) 25 g, Intravenous, Every 15 min PRN, Low blood sugar, for glucose < 70 and not alert, Starting on Sun10/28/24 at 0930, Recheck glucose in 15 minutes and repeat treatment if glucose still < 70. For Smart Pump: Set volume to be infused; 125 ml for 12.5 grams or 250 mL for 25 grams. HYDROmorphone (DILAUDID) tablet 2 mg 2 mg, Oral, Every 4 hours PRN, severe pain (NRS 7-10) or if patient is non-communicative (CPOT 6-8), Starting on Sun10/31/24 at 0920 1031 (Given - Provider: Paulette Flannery RN)1434 (Given - Provider: Paulette Flannery RN)1844 (Given - Provider: Vivi Newton, ЮЛИЯ)2232 (Given - Provider: Yvonne Gale, ЮЛИЯ) 0215 (Given - Provider: Yvonne Gale RN)0615 (Given - Provider: Yvonne Gale RN)1153 (Given - Provider: Paulette Flannery RN)1714 (Given - Provider: Paulette Flannery RN)2120 (Given - Provider: Yvonne Gale RN) 0123 (Given - Provider: Yvonne Gale RN)0543 (Given - Provider: Yvonne Gale RN)1219 (Given - Provider: Paulette Flannery RN) OMNIPAQUE (iohexol) 240 mg iodine/mL 50 mL (COMPLETED) 50 mL, Oral, IMG once as needed, contrast, Starting on Sun10/31/24 at 1634, For 1 dose, RESTRICTED FOR ENTERAL USE ONLY. 1608 (Given - Provider: Vandana Preciado, RT) ondansetron (ZOFRAN) injection 4 mg 4 mg, Intravenous, Every 6 hours PRN, Nausea and/or Vomiting, Starting on Sun10/29/24 at 2103 oxyCODONE (ROXICODONE) immediate release tablet 10 mg (CANCELED)(Linked Group 6) 10 mg, Oral, Every 4 hours PRN, severe pain (NRS 7-10) or if patient is non-communicative (CPOT 6-8), Starting on Sun10/28/24 at 1650, If on IV and PO pain medications, use IV if patient cannot tolerate oral. 0149 (Given - Provider: Vandana Vilchis RN)0616 (Given - Provider: Vandana Vilchis RN) Linked Groups Order Group 1: insulin lispro (humaLOG/ADMELOG) injection 0-10 UnitsJump to med 0-10 Units, Subcutaneous, At Bedtime (2100), First dose on Sun10/28/24 at 2100, HIGH ALERT MEDICATION Onset of action is rapid. Give dose 5-10 minutes before meal. Have meal at bedside. And Fingerstick Glucose, Overnight (If correction given) (CANCELED) Routine, Daily at 0300 PRN, Starting on Sun10/29/24 at 0300, Until Specified Group 2: potassium chloride (KLOR-CON M20) CR tablet 40 mEq (COMPLETED)Jump to med 40 mEq, Oral, Once, On Sun11/01/24 at 1830, For 1 dose, FOR PATIENTS UNABLE TO SWALLOW LARGE TABLETS, but can take liquids orally: Place tablet(s) in room temperature or warm water (@ 2-4 ounces) and allow to disintegrate for ~ 30 seconds. Then stir well and administer immediately before particles settle. NOTE: not all particles will go into solution. DO NOT CRUSH or CHEW; TABLET(S) MAY BE SPLIT Followed by potassium chloride (KLOR-CON M20) CR tablet 20 mEq (COMPLETED)Jump to med 20 mEq, Oral, Once, On Sun11/01/24 at 2230, For 1 dose, FOR PATIENTS UNABLE TO SWALLOW LARGE TABLETS, but can take liquids orally: Place tablet(s) in room temperature or warm water (@ 2-4 ounces) and allow to disintegrate for ~ 30 seconds. Then stir well and administer immediately before particles settle. NOTE: not all particles will go into solution. DO NOT CRUSH or CHEW; TABLET(S) MAY BE SPLIT Group 3: methylPREDNISolone sodium succinate (SOLU-medrol) 250 mg in sodium chloride 0.9 % 100 mL IVPB (COMPLETED) 250 mg, Intravenous, at 200 mL/hr, Once, On Sun10/27/24 at 0900, For 1 dose, POD #1 - Dose, Post-op Followed by methylPREDNISolone sod suc(PF) (SOLU-medrol) SolR 125 mg (COMPLETED) 125 mg, Intravenous, Once, On Sun10/28/24 at 0900, For 1 dose, POD #2 - Dose. Mix until dissolved and use immediately. MIX THOROUGHLY PRIOR TO ADMINISTRATION. Followed by methylPREDNISolone sod suc(PF) (SOLU-medrol) SolR 60 mg (COMPLETED) 60 mg, Intravenous, Once, On Sun10/29/24 at 0900, For 1 dose, POD # 3 - Dose. Mix until dissolved and use immediately. MIX THOROUGHLY PRIOR TO ADMINISTRATION. Followed by methylPREDNISolone sod suc(PF) (SOLU-medrol) SolR 50 mg (COMPLETED) 50 mg, Intravenous, Once, On Tish 10/30/24 at 0900, For 1 dose, POD #4 - Dose. Mix until dissolved and use immediately. MIX THOROUGHLY PRIOR TO ADMINISTRATION. Followed by predniSONE (DELTASONE) tablet 40 mg (COMPLETED)Jump to med 40 mg, Oral, Once, On Sun10/31/24 at 0900, For 1 dose, POD #5 Followed by predniSONE (DELTASONE) tablet 30 mg (COMPLETED)Jump to med 30 mg, Oral, Once, On 11/01/24 at 0900, For 1 dose, POD #6 Followed by predniSONE (DELTASONE) tablet 25 mg (COMPLETED)Jump to med 25 mg, Oral, Once, On Sun11/02/24 at 0900, For 1 dose, POD #7 Followed by predniSONE (DELTASONE) tablet 20 mgJump to med 20 mg, Oral, Daily, First dose on 11/03/24 at 0900, Start daily PO dose on POD #8 Group 4: sod phos di, mono-K phos mono (K-PHOS NEUTRAL) 250 mg tablet Tab 500 mg (COMPLETED)Jump to med 500 mg, Oral, Every 2 hours, First dose on 11/01/24 at 1900, For 2 doses, Phosphorus Level 1.8 - 2.9 Weight greater than 100 k tablets every 2 hours x 2 doses (4 tablets), followed by 1 tablet = total dose of 5 tablets (Phosphorus 40mmol, Potassium 5.5 mEq). May give orally or per feeding tube. Each 250 mg tablet of KPhos Neutral contains: Phosphorus = 8 mmol; Sodium = 13 mEq; Potassium = 1.1 mEq Followed by sod phos di, mono-K phos mono (K-PHOS NEUTRAL) 250 mg tablet Tab 250 mg (COMPLETED)Jump to med 250 mg, Oral, Once, On 11/01/24 at 2300, For 1 dose, Phosphorus Level 1.8 - 2.9: Weight greater than 100 k tablets every 2 hours x 2 doses (4 tablets), followed by 1 tablet = total dose of 5 tablets (Phosphorus 40mmol, Potassium 5.5 mEq). May give orally or per feeding tube Each 250 mg tablet of KPhos Neutral contains: Phosphorus = 8 mmol; Sodium = 13 mEq; Potassium = 1.1 mEq Group 5: dextrose 10%-water (D10W) IV solnJump to med 12.5 g, Intravenous, Every 15 min PRN, Low blood sugar, for glucose < 70 and alert but can not be corrected, orally or via feeding tube, Starting on Sun10/28/24 at 0930, Recheck blood sugar in 15 minutes and repeat treatment if glucose still < 70. For Smart Pump: Set volume to be infused; 125 ml for 12.5 grams or 250 mL for 25 grams. Or dextrose 10%-water (D10W) IV solnJump to med 25 g, Intravenous, Every 15 min PRN, Low blood sugar, for glucose < 70 and not alert, Starting on Sun10/28/24 at 0930, Recheck glucose in 15 minutes and repeat treatment if glucose still < 70. For Smart Pump: Set volume to be infused; 125 ml for 12.5 grams or 250 mL for 25 grams. Group 6: oxyCODONE (ROXICODONE) immediate release tablet 5 mg (CANCELED) 5 mg, Oral, Every 4 hours PRN, moderate pain (NRS 4-6) or if patient is non-communicative (CPOT 3-5), Starting on Sun10/28/24 at 1650, If on IV and PO pain medications, use IV if patient cannot tolerate oral. Or oxyCODONE (ROXICODONE) immediate release tablet 10 mg (CANCELED)Jump to med 10 mg, Oral, Every 4 hours PRN, severe pain (NRS 7-10) or if patient is non-communicative (CPOT 6-8), Starting on Sun10/28/24 at 1650, If on IV and PO pain medications, use IV if patient cannot tolerate oral. documented in this encounter Additional Health Concerns Infection Onset Date Last Indicated Resolved Time C. 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
--- OUTSIDE RECORDS SUMMARY | 2024-10-25 22:30 | XMS_ITS | Encounter Summary ---
Author Organization [facility] Address [address] [place] [address] Care Team Providers Care Master Automotive Technician Name Role Phone Enedina Mcguire NP Primary Care Provider [phone] Source Comments This information has been disclosed [...] release of HIV test results or diagnoses. [id number] Reason for Visit * Auth/Cert (Routine) Specialty Diagnoses / Procedures Referred By Shane hernadez Referred To Contact Surgical Intensive Care Diagnoses Liver transplant recipient (CMS-HCC) cirrhosis and CKD Procedures LIVER-KIDNEY TRANSPLANT [facility] SICU [address] [place] [address] Phone: tel: Referral ID Status Reason Start Date Expiration Date Visits Re quested Visits Authorized [id number] 1 1 Encounter Details Date Type Department Care Team (Late st Contact Info) Description 10/25/2024 10:30 PM EDT - 10/26/2024 6:[address] [facility] PERIOP [address] [place] [address] Semaj Mcnair III, MD [address] [facility] [address] [place] [address] LIVER TRANSPLANT Surgery Details Date/Time [...] the past 12 months has th e GiftLauncher, gas, oil, or water [employer] threatened to shut off services in your [...] Plata MD - 11/02/2024 2:04 PM EDT [facility] Liver Transplant Surgical Service Inpatient Discharge Summary Patient: Blair Gilbert : 1985 CSN: [id number] Date of Admission: 10/25/2024 Date of Discharge: [...] Case IDs Date Procedure Surgeon Location Status [id number] 10/25/24 LIVER TRANSPLANT Semaj Mcnair III, MD OR Comp [id number] 10/27/24 Donor Kidney Transplant , Back Bench [...] EXAM: US ABDOMEN LIMITED EXAM: US DUPLEX [id number]-[id number] COMPLETE INDICATION: Post-op liver transplant COMPARISON: None [...] visualized secondary to poor acoustic windows. [place] right kidney measures 11.6 cm in length. [...] 30 tablet Refills: 0 naloxone 4 mg/actuation Ehrenberg Commonly known as: NARCAN Apply 1 spray [...] Medications These medications were sent to [facility] NAA Baum - [address] [facility] Mya 105Mal Deya Roque [address] mycophenolate 250 mg capsule tacrolimus 1 MG capsule These medications were sent to [facility] [address] [place] [address] Hours: Sunday - Sunday: 8:00AM - 6:00PM [...] Case IDs Date Procedure Surgeon Location Status [id number] 10/25/24 LIVER TRANSPLANT Semaj Mcnair III, MD OR Comp [id number] 10/27/24 Donor Kidney Transplant , Back Bench [...] discharge. NEURO/PAIN - Patient placed on Dilaudid EVENT ATTENDANT once extubated, then transitioned to multi-modal pain [...] Ureteral stentis scheduled for removal on 11/25 [facility] - PT/OT evaluated patient and recommended Home PT/OT, outpatient PT/OT only available. ENDO - A1C is 5.0. Pt was not on diabetic regimen prior to arrival. Patient developed steroid-induced hyperglycemia 2/2 steroid regimen. Discharged home on the following regimen: HDSSI. Patient met w/ clinical nurse educator prior to discharge. HEME - Post-operatively, [...] Patient and family received post-transplant education from site safety coordinator as well as medication teaching from [...] 11/04/2024 8:40 AM LTRA SURGERY, [facility] 11/04/2024 10:10 AM LTRA HEPATORENAL HOX LTRA HOX HOX 11/25/2024 9:00 AM NAA Merida [facility] URO MAB MAB 12/02/2024 2:00 PM Bossman Huffman MD [facility] MARIANGEL MAB MAB 02/25/2025 10:50 AM Bruno Gonzalez MD [facility] HOX HOX Kenyetta Hartman, MS-4 [facility] SHAY PLATA MD 11/02/2024 12:50 PM [...] up appointments. Diet: Regular diet Drain/Dressing/Wound Care: [place] will be removed in clinic approximately 3-4 [...] kept under 2 gm/day. Please discuss withyour accounts payable payroll coordinator if you have any question about appropriate dose to take. Other Instructions: Call post-liver transplant clinic with questions [phone] or call [facility] at [phone] and ask for the liver site safety coordinator editor continuity and script if you experience any of the following: [...] 11/04/2024 8:40 AM LTRA SURGERY, [facility] 11/04/2024 10:10 AM LTRA HEPATORENAL HOX LTRA HOX HOX 11/25/2024 9:00 AM NAA Merida [facility]RO MAB MAB 12/02/2024 2:00 PM Bossman Huffman MD [facility] MARIANGEL MAB MAB 02/25/2025 10:50 AM Bruno [...] AM EDT 10/30/2024 naloxone (NARCAN) 4 mg/actuation Ehrenberg Apply 1 spray in one nostril if [...] tacrolimus and mycophenolate which were dispensed through [facility] Specialty per insurance requirements. Patient's confirms [...] fair Expected caregiver involvement?: is primary med campaign manager Need for additional education in clinic?: routine reinforcement only Future medications to be obtained from, if known (select one): Tac/MMF to be filled from [facility] Specialty Pharmacy Financial concerns (if any): no Discharge Medication List as of 11/02/2024 5:17 PM START taking these medications Details acetaminophen (TYLENOL) 325 MG tablet Take 3 tablets (975 mg total) by mouth every 8 hours., Starting 10/27/2024, Normal, Disp-200 tablet, R-0 alcohol swabs PadM Use as instructed., Normal, Disp-200 each, R-1 blood sugar diagnostic (GLUCOSE BLOOD) [facility] Use to test blood sugar up to 4 times a day., Normal, Disp-100 strip, R-11 blood-glucose meter (TRUE METRIX GLUCOSE METER) [facility] Use to test blood sugar up to [...] Disp-15 mL, R-2 lancets (ACCU-CHEK SOFTCLIX LANCETS) [facility] Use to test blood sugar up to [...] Disp-30 tablet, R-0 naloxone (NARCAN) 4 mg/actuation Ehrenberg Apply 1 spray in one nostril if [...] Comments: Reason for Stopping: Eduardo Gamino, Pharm.D., [facility] Clinical Specialist Contact via SlideJar Secure Chat * Froylan Hendrickson MD - 11/01/2024 8:04 AM EDT Liver Transplant Surgery Progress Note Name: Blair Gilbert CSN: [id number] Date: 11/01/2024 8:06 AM OR Date: 10/25/2024 [...] at 10/31/2024 4:38 PM EDT US Duplex Rvj-Nzc-Lwxfgox Comp Result Date: 10/31/2024 IMPRESSION: RIGHT UPPER [...] 10/25/2024 - 10/27/2024. Plan: Liver transplant recipient ([facility]) [Z94.4] Neuro: - Multimodal pain control: [...] 3:24 PM EDT TXP - Follow Up [facility] Medical Nutrition Therapy Transplant Brief Note Diet Order/Nutrition Support: Diet/Nutrition Orders Diet Regular(7) high calorie 3000 kcal a day Frequency: Effective Now Number of Occurrences: Until Specified Order Questions: Additional restrictions: high calorie 3000 kcal a day Suicide/Behavior Risk Modification? No Dietary nutrition supplements Frequency: TID Number of Occurrences: Until Specified Order Questions: Select Supplement: Boost VHC- very high calorie protein supplement ([facility] only) Pertinent Information: Pt seen for [...] Based on DBW of 93.1 kg Kcals/day: 9251-6296 (25-30 kcals/kg) Protein g/day: 140-190 (1.5-2.0 g/kg) [...] Dietitian - Solid Organ Transplant Contact via SlideJar Chat * Keon Dobson - 10/31/2024 2:35 PM EDT [facility] Spiritual Care Volunteer Visit PATIENT NAME: Blair Gilbert ROOM:[id number]/[id number] Yazdanism Affiliation:Mormonism Blair Gilbert was visited by a volunteer today. No needs requiring a visit from a staff butt welder were expressed at that time. Care Provided: Communion, Prayer/ blessing Please page our service at [phone] as needs arise for patient and/or family. Fr Dean Dobson Mormonism butt welder Spiritual Care Dept * Brittany Horne PT [...] issued by OT: Long-handled sponge, Sock aid, Recording Studio Internship, Other (comment) Equipment issued by OT comment: leg it business systems analyst Assessment Assessment: Decreased ADL status, Decreased IADLs, [...] IADL task (Goal met and continued 10/31) Correction Goal : Pt will complete bathing assessment and transfer nursing home goal to be met in: 2 [...] Hypertension Other hyperlipidemia 07/26/2024 Renal cell carcinoma ([facility]-H[facility]) Thrombocytopenia ([facility]-H[facility]) Thyroid disease Past Surgical History Past Surgical [...] Active Problem List Diagnosis Decompensated cirrhosis ([facility]) Acute kidney injury superimposed on CKD ([facility]) Alcohol use disorder Metabolic encephalopathy Hypertension Other hyperlipidemia Thrombocytopenia ([facility]-H[facility]) Renal mass, left Abdominal pain Hypokalemia CKD (chronic kidney disease) stage 4, GFR 15-29 ml/min ([facility]) Metabolic acidosis with normal anion gap and bicarbonate losses GERD (gastroesophageal reflux disease) Hypothyroidism Itching Anemia BRBPR (bright red blood per rectum) SBP (spontaneous bacterial peritonitis) ([facility]) C Diff Diarrhea C. difficile diarrhea [...] 0659 10/31/24 07 - 11/01/24 0659 Shift 3850-7706 7786-4095 6232-7374 24 Hour Total 0025-4812 8781-7693 5127-8695 24 Hour Total INTAKE P.O. 240 240 P.O. 240 240 Shift Total(mL/kg) 240(1.9) 240(1.9) OUTPUT Urine(mL/kg/hr) 1850(1.8) 600(0.6) 600(0.6) 3050(1) 350 350 Urine 800 704 144 0419 350 350 Urine Occurrence 2 x 2 [...] with further concerns Lavell Kramer MD 10/31/[phone] * Priti Geiger CNP - 10/31/2024 10:06 AM EDT Liver Transplant Surgery Progress Note Name: Blair Gilbert CSN: [id number] Date: 10/31/2024 10:06 AM OR Date: 10/25/2024 [...] 10/28/24 1109 LACTATE 0.3* Imaging US Duplex Mka-Mph-Yxwitfd Comp Result Date: 10/28/2024 IMPRESSION: ABDOMINAL ULTRASOUND [...] 10/25/2024 - 10/27/2024. Plan: Liver transplant recipient ([facility]) [Z94.4] Neuro: - Multimodal pain control: [...] Transplant Nephrology Progress Note Patient: Blair Gilbert [id number] 8025/U8025 Date of Admit: 10/25/2024. 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 Lauren Santos, DNP, [employer]ARY [employer] DEAN, BATCHMAKER- Transplant Nephrology [phone] Preferred contact: secure chat The HPI, ROS, [...] 10/30/24 0659 10/30/24699 - 10/31/24 0659 Shift 9594-7497 0258-8830 6017-2420 24 Hour Total 2277-5717 9941-0547 0189-4341 24 Hour Total INTAKE P.O. 240 240 480 P.O. 240 240 480 IV Piggyback 87.2 87.2 Volume (mL) (micafungin (MYCAMINE) 50 mg in sodium chloride 0.9 % 100 mL Keri5Fdy IVPB) 87.2 87.2 Shift Total(mL/kg) 240(2) 327.2(2.7) 567.2(4.4) OUTPUT Urine(mL/kg/hr) 600(0.6) 1175(1.2) 450(0.4) 2225(0.7) 550 550 Output (mL) (IUC (Berkowitz) Triple-lumen (3-Way) 18 Fr.) 600 3679 676 1615 550 550 Drains 175 245 100 520 [...] month of prophylaxis Lavell Kramer MD 10/30/[phone] * Priti Geiger CNP - 10/30/2024 10:36 AM EDT Liver Transplant Surgery Progress Note Name: Blair Gilbert CSN: [id number] Date: 10/30/2024 10:37 AM OR Date: 10/25/2024 [...] 1109 LACTATE 0.5 0.3* Imaging US Duplex Bat-Ofa-Njqwfuu Comp Result Date: 10/28/2024 IMPRESSION: ABDOMINAL ULTRASOUND [...] 10/25/2024 - 10/27/2024. Plan: Liver transplant recipient ([facility]) [Z94.4] Neuro: - Multimodal pain control: [...] Transplant Nephrology Progress Note Patient: Blair Gilbert [id number] 8025/U8025 Date of Admit: 10/25/2024. 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 Lauren Santos, DNP, LIBRARY SERVICES DEAN, BATCHMAKER- Transplant Nephrology [phone] Preferred contact: secure chat The HPI, ROS, [...] EDT Pt seen, examined, and discussed with GLASS MOULD CLEANER on 10/30/2024. reviewed the chart including the labs and imaging studies. My additional comments below. 39 y.o. 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 S/p SLK 10/25-10/26 Good uop Mild MA, will monitor for now for needs of po bicarb Aaron Gonzalez MD, MEd, FASN * Ben Weiss, RD - 10/29/2024 3:36 PM EDT TXP - Follow Up [facility] Medical Nutrition Therapy Follow-Up Diet Order/Nutrition [...] I/O: +23.3L net volume. Last BM Date: (water vessel captain). Admit Weight: 270 lb (122.5 kg) [...] Based on DBW of 93.1 kg Kcals/day: 4855-3091 (25-30 kcals/kg) Protein g/day: 140-190 (1.5-2.0 g/kg) [...] transplant recipient (CMS-HCC) [Z94.4] Date: 10/29/2024 Room: [place] [address] [address] Reviewed Pertinent hospital course: Yes Hospital Course [...] with functional mobility at: 10 or less Protective Officer Goal : Pt will ambulate 250' mod [...] 07/26/2024 Renal cell carcinoma (CMS-HCC) Thrombocytopenia ([facility]) Thyroid disease Past Surgical History Past Surgical [...] Active Problem List Diagnosis Decompensated cirrhosis ([facility]) Acute kidney injury superimposed on CKD ([facility]) Alcohol use disorder Metabolic encephalopathy Hypertension [...] III, MD Admission Diagnosis: Liver transplant recipient ([facility]) [Z94.4] Date: 10/29/2024 Room: [place] [address] [address] Reviewed Pertinent hospital course: Yes Hospital Course [...] Intervention(s): Ambulation/increased activity;Repositioned Therapist reported pain to: senior safety management consultant Oxygen Supplemental Oxygen Supplemental Oxygen: None (Room [...] distance ambulation in prep for IADL task Protective Officer Goal : Pt will complete bathing assessment and transfer nursing home goal to be met in: 2 [...] Active Problem List Diagnosis Decompensated cirrhosis ([facility]) Acute kidney injury superimposed on CKD [facility] Alcohol use disorder Metabolic encephalopathy Hypertension Other hyperlipidemia Thrombocytopenia ([facility]) Renal mass, left Abdominal pain Hypokalemia CKD (chronic kidney disease) stage 4, GFR 15-29 ml/min ([facility]) Metabolic acidosis with normal anion gap and bicarbonate losses GERD (gastroesophageal reflux disease) Hypothyroidism Itching Anemia BRBPR (bright red blood per rectum) SBP (spontaneous bacterial peritonitis) ([facility]) C Diff Diarrhea C. difficile diarrhea Neck pain with history of cervical spinal surgery * Caron Santos CNP - 10/29/2024 10:30 AM EDT Images from the original note were not included. Transplant Nephrology Progress Note Patient: Blair Gilbert [id number] SICU-28/USIC-28 Date of Admit: 10/25/2024. 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 Lauren Santos, SAMSON, LIBRARY SERVICES DEAN, BATCHMAKER- Transplant Nephrology [phone] Preferred contact: secure chat The HPI, ROS, [...] Surgery Progress Note Name: Blair Gilbert CSN: [id number] Date: 10/29/2024 10:08 AM OR Date: 10/25/2024 [...] LACTATE 0.4* 0.5 0.3* Imaging US Duplex Lts-Uhb-Ejdpmrr Comp Result Date: 10/28/2024 IMPRESSION: ABDOMINAL ULTRASOUND [...] at 10/27/2024 10:38 AM EDT US Duplex Vfz-Ren-Nmlcbjn Comp Result Date: 10/27/2024 IMPRESSION: RIGHT UPPER [...] 10/25/2024 - 10/27/2024. Plan: Liver transplant recipient ([facility]) [Z94.4] Neuro: - Multimodal pain control: [...] Date 10/28/24699 - 10/29/2465810/29/24699 - 10/30/24658 Shift 7838-7676 1321-8435 1137-1734 24 Hour Total 0233-8443 1000-3409 5566-8198 24 Hour Total INTAKE P.O. 240 0 [...] IV infusion) 253.9 374.7 775.6 1404.2 Blood 1849 546 3548 Albumin 750 750 Volume (Transfuse RBC Transfusion Rate: Per dept routine) 310 310 Volume (Transfuse RBC Transfusion Rate: Per dept routine) 271 271 IV Piggyback 918.4 358 73 4450.4 Volume (mL) (micafungin (MYCAMINE) 50 mg in sodium chloride 0.9 % 100 mL Keay8Qbm IVPB) 99.9 99.9 Volume (mL) (albumin human [...] month of prophylaxis Lavell Kramer MD 10/29/[phone] * John Moreno MD - 10/29/2024 6:47 AM EDT SURGICAL ICU PROGRESS NOTE 10/29/2024 6:47 AM Name: Blair Gilbert [facility]: [id number] HPI: Blair Gilbert is a 39 y.o. [...] to 4 times a day. DEXCOM G7 AIR MARSHAL Misc Use reader as directed. DEXCOM G7 [...] and at bedtime. lancets (ACCU-CHEK SOFTCLIX LANCETS) [facility] Use to test blood sugar up to 4 times a day. methocarbamoL (ROBAXIN) 500 MG tablet Take 1 tablet (500 mg total) by mouth 3 times a day. naloxone (NARCAN) 4 mg/actuation Ehrenberg Apply 1 spray in one nostril if [...] 37 37 35 PO2ART 245* 182* 92 VKL0ACX 22 21* 21* BEART -4.2* -4.8* -4.6* [...] at baseline or with provocation, shows no hkksd-xg-fklc atrial level shunt. - Pulmonary arteries: Systolic [...] Home pantoprazole 40mg daily, continue Last BM: APPAREL SALES ASSOCIATE - suppository today Bowel regimen: Miralax today, [...] results for input(s): TEGANGLE , TEGKTIME , DEXKGOJB15 , TEGMAXAMPL , TEGRTIME , CBMZ in [...] in sodium chloride 0.9 % 100 mL Urws0Qdr IVPB 50 mg Every 24 hours 10/27/2024 -- Admin Instructions: PROTECT FROM LIGHT FLUSH LINE w/NSS PRIOR TO ADMINISTRATION Use Sdaz8Qwc Adapter - Mix Thoroughly Before Administration Route: [...] instability DC today Arterial Line? R radial [place]- DC today Urinary Catheter? Berkowitz - Reason: [...] BID Continuous Infusions: HYDROmorphone 6 mg/30 mL EVENT ATTENDANT norepinephrine 4 mcg/min (10/27/248) sodium chloride 0.45% [...] 0659 10/28/24 07 - 10/29/24 0659 Shift 3212-3834 4578-7950 0705-5794 24 Hour Total 5491-3583 3432-1100 0955-5938 24 Hour Total INTAKE P.O. 0 120 [...] in sodium chloride 0.9 % 100 mL Fllf8Hzl IVPB) 100 100 Volume (mL) (albumin human 5%) 126 126 Volume (mL) (potassium chloride (KCl)/Sterile water 50 mL 20 mEq/50 mL IVPB 20 mEq) 100 100 Volume (mL) (AMPicillin 1 g in sodium chloride 0.9% 100 mL IVPB (Yzts3Abx)) 100.1 57 42.9 200 Volume (mL) (mycophenolate (CELLCEPT) 500 mg in dextrose 5% in water (D5W) 50 mL IVPB) 50 5.3 55.3 Shift Total(mL/kg) 2079.3(17) 1161(9.5) 787.3(6.4) 4027.6(32.9) OUTPUT Urine(mL/kg/hr) 2195(2.2) 1000(1) 900(0.9) 4095(1.4) 490 490 Urine 360 360 Output (mL) (IUC (Berkowitz) Triple-lumen (3-Way) 18 Fr.) 1835 7538 970 3915 490 490 Emesis/NG output 50 50 Drainage [...] month of prophylaxis Lavell Kramer MD 10/28/[phone] * Caron Santos CNP - 10/28/2024 9:00 AM EDT Images from the original note were not included. Transplant Nephrology Progress Note Patient: Blair Gilbert [id number] SICU-28/USIC- Date of Admit: 10/25/2024. LOS: 3 [...] BID Continuous Infusions: HYDROmorphone 6 mg/30 mL EVENT ATTENDANT norepinephrine Stopped (10/28/24 0637) sodium chloride 0.9 % 75 mL/hr (10/28/24 1310) sodium chloride 0.9 % sodium chloride 0.9 % DATA: Reviewed in EMR Radiology last 48 hours: Reviewed in EMR Assessment: Blari Gilbert is a pleasant 39 y.o. 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 Lauren Santos, DNP, LIBRARY SERVICES DEAN, BATCHMAKER- Transplant Nephrology [phone] Preferred contact: secure chat The HPI, ROS, [...] EDT Pt seen, examined, and discussed with GLASS MOULD CLEANER on 10/28/2024. reviewed the chart including the labs and imaging studies. My additional comments below. 39 y.o. 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 S/p SLK 10/25-10/26 Has great UOP 4.2L Aaron Gonzalez MD, MEd, FASN * Shay Plata MD - 10/28/2024 7:41 AM EDT Liver Transplant Surgery Progress Note Name: Blair Gilbert CSN: [id number] Date: 10/28/2024 11:05 AM OR Date: 10/25/2024 - 10/27/2024 Subjective: 1 Day Post-Op Received one unit pRBCs overnight On low dose levo this morning Increasing tachycardia Reports worsening pain, on EVENT ATTENDANT Tolerated sips of clears No nausea/vomiting, no [...] Oral BID Continuous: HYDROmorphone 6 mg/30 mL EVENT ATTENDANT norepinephrine Stopped (10/28/24 0637) sodium chloride 0.9 [...] at 10/27/2024 10:38 AM EDT US Duplex Feh-Lur-Vvncbbe Comp Result Date: 10/27/2024 IMPRESSION: RIGHT UPPER [...] 10/25/2024 - 10/27/2024. Plan: Liver transplant recipient ([facility]) [Z94.4] Neuro: - Multimodal pain control: dilaudid EVENT ATTENDANT, tylenol, robaxin. PRN dilaudid for breakthrough CV: [...] SCDs DISPO: SICU SHAY PLATA MD, MS4 [facility] Surgery 11:05 AM 10/28/2024 Cosigned by [...] 10/28/2024 6:17 AM Name: Blair Gilbert CSN: [id number] HPI: Blair Gilbert is a 39 y.o. [...] to 4 times a day. DEXCOM G7 AIR MARSHAL Misc Use reader as directed. DEXCOM G7 [...] times a day. naloxone (NARCAN) 4 mg/actuation Ehrenberg Apply 1 spray in one nostril if [...] Oral BID Continuous: HYDROmorphone 6 mg/30 mL EVENT ATTENDANT insulin regular in 0.9 % sodium chloride [...] 37 37 35 PO2ART 245* 182* 92 TGQ4AZZ 22 21* 21* BEART -4.2* -4.8* -4.6* [...] at baseline or with provocation, shows no cakxf-xf-ckro atrial level shunt. - Pulmonary arteries: Systolic [...] while intubated,convert to PO today Last BM: APPAREL SALES ASSOCIATE Bowel regimen: Miralax today, hold senna til [...] ml IV Fluids: HYDROmorphone 6 mg/30 mL EVENT ATTENDANT insulin regular in 0.9 % sodium chloride, [...] no concerns - 3 day berkowitz - la 10/30 - Makes urine at baseline - [...] results for input(s): TEGANGLE , TEGKTIME , XLUIKQSV60 , TEGMAXAMPL , TEGRTIME , CBMZ in [...] in sodium chloride 0.9% 100 mL IVPB (Wxyn7Gnc) (Completed) 1 g Every 6 hours scheduled 10/26/2024 10/28/2024 Admin Instructions: Dosage may need to be adjusted for renal dysfunction. Full dose is 1g IV q6h Use Tvva9Deu Adapter - Mix Thoroughly Before Administration Notes to Pharmacy: On entry level sales associate estimated creatinine clearance is 35.9 mL/min (A) [...] in sodium chloride 0.9 % 100 mL Azzq2Ady IVPB 50 mg Every 24 hours 10/27/2024 -- Admin Instructions: PROTECT FROM LIGHT FLUSH LINE w/NSS PRIOR TO ADMINISTRATION Use Yowz7Xpu Adapter - Mix Thoroughly Before Administration Route: [...] R IJ Mac Arterial Line? R radial [place] Urinary Catheter? Berkowitz - Reason: Adequate I/O [...] the Caprini Risk Score of [address] [facility] transplant protocol, I recommend discharging on [...] the patient as needed. Hillary Fernandes PharmD, [facility] Solid Organ Transplant Clinical Specialist Contact via SlideJar Secure Chat Preferred O. [phone] * Chinedu Almeida RRT - 10/27/2024 1:10 [...] Yes MD Order No SBT No Yes Bradford Coma Scale > 8 Yes Lab Results Component Value Date PHART 7.36 10/27/2024 PCO2 37 10/27/2024 PO2ART 245 (H) 10/27/2024 WQY0ATF 22 10/27/2024 BEART -4.2 (L) 10/27/2024 ZZM7QFQ 96.5 10/27/2024 F1HPQUWV 100 10/27/2024 Based on this SBT assessment [...] Surgery Progress Note Name: Blair Gilbert CSN: [id number] Date: 10/27/2024 11:40 AM OR Date: 10/25/2024 - 10/27/2024 Subjective: * Day of Surgery * Remains intubated in SICU Sedated but appropriately nods to questions No acute distress Objective: BP 100/48 Pulse 89 Temp 99 ??F (37.2 ??C) ([place]) Resp 9 Ht 6' 4 (1.93 m) [...] at 10/27/2024 10:38 AM EDT US Duplex Qmn-Hub-Cbwlpxk Comp Result Date: 10/27/2024 IMPRESSION: RIGHT UPPER [...] 10/27/2024. Problem List[1] Plan: Liver transplant recipient ([facility]-HCC) [Z94.4] Neuro: - Propofol/fentanyl CV: - [...] SQH, SCDs DISPO: SICU KENYETTA HARTMAN, MS4 [facility] Surgery 11:40 AM 10/27/2024 [1] Patient Active Problem List Diagnosis Decompensated cirrhosis ([facility]-HCC) Acute kidney injury superimposed on CKD ([facility]) Alcohol use disorder Metabolic encephalopathy Hypertension Other hyperlipidemia Thrombocytopenia ([facility]-HCC) Renal mass, left Abdominal pain Hypokalemia CKD (chronic kidney disease) stage 4, GFR 15-29 ml/min ([facility]-HCC) Metabolic acidosis with normal anion gap and bicarbonate losses GERD (gastroesophageal reflux disease) Hypothyroidism Itching Anemia BRBPR (bright red blood per rectum) SBP (spontaneous bacterial peritonitis) ([facility]) C Diff Diarrhea C. difficile diarrhea [...] 10/27/2024 7:16 AM Name: Blair Gilbert CSN: [id number] HPI: Blair Gilbert is a 39 y.o. [...] times a day. naloxone (NARCAN) 4 mg/actuation Ehrenberg Apply 1 spray in one nostril if [...] 47* 36 37 PO2ART 127* 91 137* YTQ5LZU 21* 22 20* BEART -5.4* -3.9* -6.4* [...] at baseline or with provocation, shows no sdhnv-pk-gwdu atrial level shunt. - Pulmonary arteries: Systolic [...] IV pantoprazole while intubated, NPO Last BM: APPAREL SALES ASSOCIATE Bowel regimen: Senna/Miralax when able Nausea: Zofran [...] 10/27/2024 0715 Gross per 24 hour Intake 94161.82 ml Output 7060 ml Net 6224.82 ml [...] results for input(s): TEGANGLE , TEGKTIME , NYLMAXIH06 , TEGMAXAMPL , TEGRTIME , CBMZ in [...] in sodium chloride 0.9% 100 mL IVPB (Aczr0Cdi) 1 g Every 6 hours scheduled Admin Instructions: Dosage may need to be adjusted for renal dysfunction. Full dose is 1g IV q6h Use Avhd6Wzx Adapter - Mix Thoroughly Before Administration Notes to Pharmacy: On entry level sales associate estimated creatinine clearance is 35.9 mL/min (A) (based on SCr of 3.87 mg/dL (H)). Route: Intravenous Linked Group 1: Placed in And Linked Group cefTRIAXone (ROCEPHIN) 2 g in sodium chloride 0.9 % 100 mL Edvf2Tul Continuous - One Step Medications Only 10/27/2024 [...] chair position DISPOSITION Remain in SICU JOHN OMRENO MD 10/27/2024 7:16 AM ICU ATTENDING PROGRESS [...] Solid Organ Transplant Clinical Specialist Contact via Netatmo Preferred * Simeon Guzman RN - 10/27/2024 [...] 10/26/2024 0725 Gross per 24 hour Intake 12075.32 ml Output 2075 ml Net 75553.32 ml Consitutional: Intubated/sedated HEENT: Mucous membranes moist [...] History and Physical Patient: Blair Gilbert CSN: [id number] History CC: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 naloxone (NARCAN) 4 mg/actuation Ehrenberg Apply 1 spray in one nostril if [...] No Physical Activity: Unknown (07/14/2024) Received from [facility] Exercise Vital Sign Days of Exercise per Week: Patient unable to answer Minutes of Exercise per Session: Not on file Stress: Patient Unable To Answer (07/14/2024) Received from [facility] [place] [facility] [employer] [facility] - Occupational Stress Questionnaire Feeling of Stress : Patient unable to answer Social Connections: Patient Unable To Answer (07/14/2024) Received from [facility] Social Connection and Isolation [...] -- 5.4 ALBUMIN 3.2* 3.1* Invalid input(s): [facility] Other labs: Imaging Studies No [...] admitted to SICU post-op. LEANDRA OG MD [facility] Surgery Liver Transplant Pager: [phone] 8:24 PM 10/25/2024 Cosigned by Semaj [...] Name: Blair Gilbert Date: 1985 Billing #: [id number] Date of Procedure: 10/25/2024 Diagnosis: End Stage Renal Disease Procedure: 1. Donor Kidney Transplant 2. Back Bench Preparation Donor Kidney 3. Baseline Kidney transplant biopsy 4. Insertion of Indwelling Stent 5. Removal of Perihepatic packing Surgeons * Flaquito Ba MD Miter Grinder Operator MD Shayan Findings: Low Hockey stick incision [...] donor was ABO O and UNOS ID [id number], Match Run [id number] ([facility]). This donor was a Donor after cardiac [...] was then wanded with the lap detection mortgage loan assistant. The incision was ex tented 2 [...] and closure. Flaquito Ba MD Transplant Surgeon map compiler * Flaquito Ba MD - 10/27/2024 6:15 AM EDT TRANSPLANT KIDNEY with bile duct reconstruction Brief Op Note Blair Gilbert 10/27/2024 Pre-op Diagnosis: Acute kidney injury superimposed on CKD (CMS-HCC) [N17.9, N18.9] Post-op Diagnosis: same Procedure(s): TRANSPLANT KIDNEY Surgeon(s): MD Semaj Washington III, MD Anesthesia: General Endotracheal Staff: Bell Maker: Chinedu Quinn RN Scrub Person: ST Angela Fellow: Kemar Sahni MD 2nd Bell Maker: Marty Clark RN 3rd Bell Maker: Candis Mcdaniel RN FINDINGS Berkowitz 3 day Drains: Intraabdominal (perihepatic) UNOS ID [id number], Match Run [id number] Kid WIT 27 min Kid CIT 33 [...] (Berkowitz) Triple-lumen (3-Way) 18 Fr. (Active) Status [place] Drainage 10/26/241999 Collection Container Standard drainage bag [...] Washington III, MD Anesthesia: General Endotracheal Staff: Bell Maker: Chinedu Quinn RN Relief Bell Maker: Michela Amos RN Relief Scrub: Stephani Blake RN Scrub Person: ST Angela Fellow: Kemar Sahni MD 2nd Bell Maker: Marty Clark RN 3rd Bell Maker: Candis Mcdaniel RN Estimated Blood Loss: 300 [...] (Berkowitz) Triple-lumen (3-Way) 18 Fr. (Active) Status [place] Drainage 10/26/241999 Collection Container Standard drainage bag [...] day Drains: 2 Intraabdominal (perihepatic) UNOS ID [id number], Match Run [id number] Donor: young DCD NRP Kid WIT 27 [...] AM EDT [facility] PATIENT NAME: BLAIR GILBERT DATE OF : 1985 CSN: [id number] PHYSICIAN: Semaj Mcnair III, MD ADMIT DATE: 10/25/2024 DICTATED BY: Semaj Mcnair III, MD SURGERY DATE: 10/27/2024 OPERATIVE REPORT SURGEON: Semaj Mcnair III, MD NEONATOLOGIST SURGEON: Kemar Sahni MD. PREOPERATIVE DIAGNOSIS: Open [...] were made hemostatic with the argon beam bed setter. We assessed the flows of the portal [...] a mucocele formation. We then performed a ovvd-ay-gtkf choledochocholedochostomy in an end to end fashion [...] small umbilicalhernia that was closed with a medemy-dk-ospja 0 PDS suture. At this point, we [...] complications. SEMAJ MCNAIR III, MD RCQ/AQ JOB#: [id number] * Semaj Mcnair III, MD - 10/26/2024 7:00 AM EDT Patient Name: Blair Gilbert Date: 1985 Billing #: [id number] Date of Procedure: 10/25/2024 - 10/26/2024 Diagnosis: Chronic Hepatic Failure without coma Procedure: 1. Orthotopic Liver Transplant 2. Back Bench Preparation Donor Liver 3. Temporary portocaval shunt 4. Perihepatic packing for control of hemorrhage 5. Placement of external choledochal stent 6. Temporary abdominal closure Attending surgeons: Semaj Mcnair III, MD Miter Grinder Operator Surgeon(s): Sveta Judge MD Findings: Whole organ placed in piggyback fashion with suprahepatic cava of donor to common orifice of all three hepatic veins for IVC anastomosis. Donor main portal vein to recipient main portal vein. Donor common hepatic artery to recipient right hepatic artery. Temporary abdominal with perihepatic packingfor control of hemorrhage. Externalization of bile duct with 8 [place] pediatric feeding tube. Portal Flow Modulation No [...] This donor was ABO O and UNOSID [id number], Match Run [id number]. This was a 42-year-old donation after circulatory [...] After completion of the outflow anastomosis, a [place] clamp was placed across the donor suprahepatic [...] do a temporary abdominal closure. An 8 Setswana pediatric feeding tube was brought through the [...] Sveta Alves III, MD Anesthesia: General Staff: Bell Maker: Mak Maher RN; Marty Clark RN Scrub Person: ST Angela Resident: Thuy Leon MD editor trade journal: Jose Daniel Arana RRT Estimated Blood Loss: [...] Number of days: 5 Surgery Information: -UNOS#: [id number] -ABO: O to O -Recipient: SLK candidate [...] 1:19 PM EDTAssociated Order(s): IP CONSULT TO WAREHOUSE DISTRIBUTION SPECIALIST [facility] Transplant Discharge Education Note Assessment: Received [...] Gomez, MSN, RN, NPD- Diabetes Education Office [phone] Schedule: M-F 8:00am-4:30pm * Ben Weiss, RD - 10/27/2024 4:06 PM EDTAssociated Order(s): IP CONSULT TO NUTRITION SERVICES; IP CONSULT TO NUTRITION SERVICES TXP - Initial [facility] Medical Nutrition Therapy Reason(s) for Completion: [...] I/O: +23.2L net volume. Last BM Date: (APPAREL SALES ASSOCIATE). Admit Weight: 270 lb (122.5 kg) Current [...] Based on DBW of 93.1 kg Kcals/day: 5955-7686 (25-30 kcals/kg) Protein g/day: 140-190 (1.5-2.0 g/kg) [...] Dietitian - Solid Organ Transplant Contact via SlideJar Chat * Lavell Kramer MD - 10/27/2024 11:09 AM EDTAssociated Order(s): INPATIENT CONSULT TO TRANSPLANT INFECTIOUS DISEASES Infectious Disease Consultation Patient: Blair Gilbert CSN: [id number] Assessment & Plan 39 y.o. M s/p [...] blood cx's if febrile Lavell Kramer MD [phone] Chief Complaint Long Qtc History of Present [...] No Physical Activity: Unknown (07/14/2024) Received from [facility] Exercise Vital Sign Days of Exercise per Week: Patient unable to answer Minutes of Exercise per Session: Not on file Stress: Patient Unable To Answer (07/14/2024) Received from [facility] [place] [facility] [employer] [facility] - Occupational Stress Questionnaire Feeling of Stress : Patient unable to answer Social Connections: Patient Unable To Answer (07/14/2024) Received from [facility] Social Connection and Isolation [...] to 4 times a day. DEXCOM G7 AIR MARSHAL Misc Use reader as directed. DEXCOM G7 [...] times a day. 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 No indications for SERVICE VEHICLE OPERATOR. Good UOP - Noted KT US [...] preliminary until attending attestation. Lauren Santos, SAMSON, LIBRARY SERVICES DEAN, BATCHMAKER- Transplant Nephrology [phone] Preferred contact: secure chat [1] Allergies Allergen [...] Gonzalez MD, MEd, FASN * Marcellus Anup, CONFIGURATOR, ATTENDING PHYSICIAN - 10/27/2024 10:21 AM EDT HEALTH Care Management/Social Work Assessment Patient Information Patient Name: Blair Gilbert Hospital Day: 2 Inpatient/Observation: Inpatient Admit Date: 10/25/2024 Admission Diagnosis: Liver transplant recipient ([facility]-HCC) [Z94.4] Attending provider: Semaj Mcnair III, MD PCP: Enedina Mcguire NP Home Pharmacy: [facility] [address] [place] [address] [address] [facility] [address] [facility] [phone] Issues related to obtaining medications: N/A Payor Information Medical Insurance Coverage: Payor: [facility] / Plan: [facility] G[employer]BAL / Product Type: *No Producttype* [...] History: 12 weeks of CD Treatement at [facility] Do you need Substance Abuse Treatment [...] resides with his spouse at their [address] [place] in [place]. 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 Spouse explained that he will [...] as appropriate. NUBIA Escalera, RONALDO Phone Number: [phone] * John Moreno MD - 10/26/2024 3:41 AM EDT SURGICAL ICU CONSULT NOTE 10/26/2024 3:41 AM Name: Blair Gilbert [facility]: [id number] HPI: Blair Gilbert is a 39 y.o. [...] at 9:00 PM naloxone (NARCAN) 4 mg/actuation Ehrenberg Apply 1 spray in one nostril if [...] % 250 mL infusion 2.5 mcg/min (10/26/24 0334) insulin regular in 0.9 % sodium chloride [...] input(s): PHART , PCO2 , PO2ART , RGY4LKV , BEART in the last 72 hours. [...] at baseline or with provocation, shows no hkqab-ej-rrix atrial level shunt. - Pulmonary arteries: Systolic [...] IV pantoprazole while intubated, NPO Last BM: APPAREL SALES ASSOCIATE Bowel regimen: Senna/Miralax when able Nausea: Zofran PRN FLUID/ELECTROLYTES Recent Labs 10/25/24 2217 NA 137 K 2.1* CL 100 CO2 20* BUN 74* CREATININE 3.87* CALCIUM 9.3 PHOS 5.9* GLUCOSE 114* Intake/Output Summary (Last 24 hours) at 10/26/2024 0341 Last data filed at 10/26/2024 0326 Gross per 24 hour Intake 68394 ml Output 675 ml Net 04079 ml IV Fluids: EPINEPHrine (ADRENALIN) 10 mg [...] results for input(s): TEGANGLE , TEGKTIME , CAQRLKYT84 , TEGMAXAMPL , TEGRTIME , CBMZ in [...] in sodium chloride 0.9% 100 mL IVPB (Ktnf7Fxw) 2 g Every 6 hours 10/26/2024 -- Admin Instructions: Use Qnaq8Xus Adapter - Mix Thoroughly Before Administration Notes to Pharmacy: On entry level sales associate estimated creatinine clearance is 35.9 mL/min (A) (based on SCr of 3.87 mg/dL (H)). Route: Intravenous AMPicillin 2 g in sodium chloride 0.9% 100 mL IVPB (Syvf5Lgf) 2 g Once 10/26/2024 -- Admin Instructions: Use Oggd1Ehz Adapter - Mix Thoroughly Before Administration Notes to Pharmacy: On entry level sales associate estimated creatinine clearance is 35.9 mL/min (A) (based on SCr of 3.87 mg/dL (H)). Route: Intravenous cefTRIAXone (ROCEPHIN) 2 g in sodium chloride 0.9 % 100 mL Eequ1Lav (Completed) 2 g Once 10/25/2024 10/26/2024 Admin Instructions: Use Hedj7Dnv Adapter - Mix Thoroughly Before Administration Route: [...] R IJ Mac Arterial Line? R radial [place] Urinary Catheter? Berkowitz - Reason: Adequate I/O [...] 47 (H) 10/26/2024 PO2ART 127 (H) 10/26/2024 QCA9WVS 21 (L) 10/26/2024 BEART -5.4 (L) 10/26/2024 SYJ8GMH 94.6 (L) 10/26/2024 F4LIOUBX 98 10/26/2024 P:F ratio = 363 CARDIOVASCULAR: [...] Acute Care Surgery, and Surgical Critical Care [facility] Academic Office [phone] For Transfers, call [phone] documented in this encounter Nursing Notes * [...] Progressing * Care Coordination - NUBIA Escalera, ATTENDING PHYSICIAN - 10/31/2024 11:34 AM EDT [facility] Case Management/Social Work Department Progress Note Patient Information Patient Name: Blair Gilbert Hospital day: 6 Inpatient/Observation: Inpatient Level of Care: Transplant Admit date: 10/25/2024 Admission diagnosis: Liver transplant recipient (CMS-HCC) [Z94.4] PMH: has a past medical history of Alcoholic cirrhosis of liver (CMS-HCC), Esophageal varices (CMS-HCC), Hepatorenal syndrome (CMS-HCC), Hypertension, Other hyperlipidemia (07/26/2024), Renal cell carcinoma (CMS-HCC), Thrombocytopenia ([facility]-H[facility]), and Thyroid disease. PCP: Enedina Mcguire NP Home Pharmacy: [facility] [address] [place] [id number] [facility] [address] [place] [address] [facility] [place] [address] [facility] [address] [facility] [place] [id number] Medical Insurance Coverage: Payor: [employer] [...] that there were no accepting HHC agencies([facility], [facility], [facility]) and patient would need to outpatient for PT/OT and labs. Discharge Plan Anticipated discharge plan: Home with HHC vs Home with outpatient Anticipated discharge date: 11/01 CM/SW will continue to follow and remain available for discharge planning needs. NUBIA Escalera, RONALDO Cell [phone] * Plan of Care - Paulette Flannery [...] Citlaly Nova - 10/29/2024 1:53 PM EDT [facility] Case Management/Social Work Department Progress [...] disease. PCP: Enedina Mcguire NP Home Pharmacy: [facility] [address] [phone] [address] [facility] [address] [facility] [address] [facility] [place] - [place] [address] [place] [place] [id number] Medical Insurance Coverage: Payor: [employer] [facility] [...] SW submitted blanket HHC referral to [facility] [employer] [place], [facility], [facility], and [facility]. Awaiting responses. SW to followpending clearance home [...] available for discharge planning needs. NUBIA Rhodes, ATTENDING PHYSICIAN Inpatient Wood Milling Machine Operator/Care Coordination [phone] * Plan of Care - Soco Yap [...] Escalera LSW - 10/28/2024 2:29 PM EDT [facility] Case Management/Social Work Department Progress Note Patient Information Patient Name: Blair Gilbert Hospital day: 3 Inpatient/Observation: Inpatient Level of Care: Transplant Admit date: 10/25/2024 Admission diagnosis: Liver transplant recipient ([facility]) [Z94.4] PMH: has a past medical history of Alcoholic cirrhosis of liver (CMS-HCC), Esophageal varices (CMS-HCC), Hepatorenal syndrome (CMS-HCC), Hypertension, Other hyperlipidemia (07/26/2024), Renal cell carcinoma (CMS-HCC), Thrombocytopenia ([facility]), and Thyroid disease. PCP: Enedina Mcguire NP Home Pharmacy: [facility] [address] [place] [address] [place] [address] [facility] [address] [facility] [address] [facility] [place] [address] [facility] [address] [facility] [place] [address] Medical Insurance Coverage: Payor: [facility] / Plan: [employer] [...] available for discharge planning needs. NUBIA Escalera, ATTENDING PHYSICIAN Cell [phone] * Plan of Care - Elaine Carrillo [...] at all times. Outcome: Completed Problem: Non-violent, aio-utmv-wndfqoxxbqc restraints Description: Less restrictive alternative interventions will [...] of medical procedures, or protection of medical records technician access. Outcome: Completed * Plan of Care [...] foods as appropriate. Outcome: Progressing Problem: Non-violent, gsl-pxvi-akpqmnnyhbz restraints Description: Less restrictive alternative interventions will [...] of medical procedures, or protection of medical records technician access. Outcome: Progressing * Plan of Care - Shanel Shen RN - 10/27/2024 9:00 AM EDT Problem: Non-violent, qvn-fkuq-iocruslaqkr restraints Description: Less restrictive alternative interventions will [...] - 10/26/2024 7:41 PM EDT Problem: Non-violent, hsr-cjtk-xnewvibmqcn restraints Description: Less restrictive alternative interventions will [...] of medical procedures, or protection of medical records technician access. Outcome: Not Progressing Patient in bilateral [...] restraint flowsheet for further documentation. Problem: Non-violent, hth-eabp-fvhwzwshtym restraints Description: Less restrictive alternative interventions will [...] of medical procedures, or protection of medical records technician access. Outcome: Progressing * Plan of Care [...] kidney injury superimposed on CKD ([facility]) Release Upon Ordering for 1 Occurrences starting 10/27/2024 Fungus culture Microbiology Routine Acute kidney injury superimposed on CKD ([facility]) Release Upon Ordering for 1 Occurrences starting 10/27/2024 Routine Culture plus Stain Microbiology Routine Acute kidney injury superimposed on CKD ([facility]) Release Upon Ordering for 1 Occurrences starting 10/27/2024 Surgical Pathology Exam Pathology and Cytology Routine Acute kidney injury superimposed on CKD ([facility]) Release Upon Ordering for 1 Occurrences starting [...] Routine 10/31/2024 11:59 AM EDT US DUPLEX WGA-HGXKAH-JSASNSE COMPLETE Routine 10/31/2024 10:19 AM EDT US [...] Routine 10/28/2024 5:31 PM EDT US DUPLEX PVU-VFUWFE-KLBRWXV COMPLETE STAT 10/28/2024 4:23 PM EDT US [...] Routine 10/27/2024 10:00 AM EDT US DUPLEX EMX-LAYFBK-IWSAJXQ COMPLETE STAT 10/27/2024 9:51 AM EDT US [...] EDT Acute kidney injury superimposed on CKD ([facility]) ROUTINE CULTURE PLUS STAIN Routine 10/27/2024 2:15 [...] - 100 mg/dL 11/02/2024 5:45 PM EDT [facility] Blood 11/02/2024 5:44 PM EDT 11/02/2024 5:45 PM EDT us Semaj Mcnair III, MD POINT OF CARE TEST ORDERABLES Final Result [facility] [address] * (ABNORMAL) POC Glucose Monitoring Device (11/02/2024 3:34 PM EDT) POC Glucose Monitoring Device 208(H) 70 - 100 mg/dL 11/02/2024 3:35 PM EDT [facility] Blood 11/02/2024 3:34 PM EDT 11/02/2024 3:35 PM EDT Semaj Mcnair III, MD POINT OF CARE TEST ORDERABLES Final Result Performing Organization Address City/[facility]/ZIP Co de Phone Number [facility] [address] * (ABNORMAL) POC Glucose Monitoring Device (11/02/2024 1:18 PM EDT) POC Glucose Monitoring Device 225(H) 70 - 100 mg/dL 11/02/2024 1:19 PM EDT [facility] Blood 11/02/2024 1:18 PM EDT 11/02/2024 1:19 PM EDT us Semaj Mcnair III, MD POINT OF CARE TEST ORDERABLES Final Result Performing Organization Address City/[facility]/ZIP Co de Phone Number [facility] [address] * (ABNORMAL) POC Glucose Monitoring Device (11/02/2024 8:59 AM EDT) POC Glucose Monitoring Device 129(H) 70 - 100 mg/dL 11/02/2024 9:00 AM EDT [facility] Blood 11/02/2024 8:59 AM EDT 11/02/2024 9:00 AM EDT us Semaj Mcnair III, MD POINT OF CARE TEST ORDERABLES Final Result [facility] [address] * Tacrolimus level (11/02/2024 5:53 AM EDT) Pathologist [facility] Tacrolimus (LC-MS) 7.4 3.0 - 15.0 ng/mL 11/02/2024 2:23 PM EDT [facility] [facility] Comment:Performed via liquid chromatography tandem mass spectrometry. Detection limit: 1 ng/mL. Individual target concentrations may vary due to target organ and time after transplant. This test has been developed and its performance characteristics determined by [facility] which is certified under the Clinical Laboratory [...] PharmD LAB BLOOD ORDERABLES Denisse l Result [facility] [address] [facility] [place]. [address] * (ABNORMAL) Renal Function Panel w/EGFR (11/02/2024 5:53 AM EDT) Pathologist [facility] [place] Sodium 140 133 - 146 mmol/L 11/02/2024 6:47 AM EDT [facility] Potassium 3.3(L) 3.5 - 5.3 mmol/L 11/02/2024 6:47 AM EDT [facility] Chloride 107 98 - 110 mmol/L 11/02/2024 6:47 AM EDT [facility] CO2 25 21 - 33 mmol/L 11/02/2024 6:47 AM EDT [facility] Anion Gap 8 3 - 16 mmol/L 11/02/2024 6:47 AM EDT [facility] BUN 31(H) 7 - 25 mg/dL 11/02/2024 6:47 AM EDT [facility] Creatinine 1.08 0.60 - 1.30 mg/dL 11/02/2024 6:47 AM EDT [facility] Glucose 150(H) 70 - 100 mg/dL 11/02/2024 6:47 AM EDT [facility] Calcium 7.8(L) 8.6 - 10.3 mg/dL 11/02/2024 6:47 AM EDT [facility] Phosphorus 2.0(L) 2.1 - 4.7 mg/dL 11/02/2024 6:47 AM EDT [facility] Albumin 3.2(L) 3.5 - 5.7 g/dL 11/02/2024 6:47 AM EDT [facility] Osmolality, Calculated 299 278 - 305 mOsm/kg 11/02/2024 6:47 AM EDT [facility] EGFR 88 11/02/2024 6:47 AM EDT [facility] Comment:As of 2021, the estimated [...] 11/02/2024 6:12 AM EDT us Beata Horner [employer] LAB BLOOD ORDERABLES Denisse valle Result [facility] [address] [place], [place] [address] * (ABNORMAL) Magnesium (11/02/2024 5:53 AM EDT) Magnesium 1.3(L) 1.5 - 2.5 mg/dL 11/02/2024 6:47 AM EDT [facility] Plasma 11/02/2024 5:53 AM EDT 11/02/2024 6:12 AM EDT Beata Horner [facility] LAB BLOOD ORDERABLES Denisse l Result Performing Organization Address [facility] Co de Phone Number [facility] [address] [facility]. [address] * (ABNORMAL) Hepatic Function Panel (11/02/2024 5:53 AM EDT) Total Bilirubin 1.6(H) 0.0 - 1.5 mg/dL 11/02/2024 6:47 AM EDT [facility] Bilirubin, Direct 0.81(H) 0.00 - 0.40 mg/dL 11/02/2024 6:47 AM EDT [facility] AST 30 13 - 39 U/L 11/02/2024 6:47 AM EDT [facility] ALT 66(H) 7 - 52 U/L 11/02/2024 6:47 AM EDT [facility] Alkaline Phosphatase 126(H) 36 - 125 U/L 11/02/2024 6:47 AM EDT [facility] Total Protein 4.6(L) 6.4 - 8.9 g/dL 11/02/2024 6:47 AM EDT [facility] Albumin 3.2(L) 3.5 - 5.7 g/dL 11/02/2024 6:47 AM EDT [facility] Bilirubin, Indirect 0.79 0.00 - 1.10 mg/dL 11/02/2024 6:47 AM EDT [facility] Plasma 11/02/2024 5:53 AM EDT 11/02/2024 6:12 AM EDT Beata Horner [facility] LAB BLOOD ORDERABLES Denisse l Result [facility] [address] [facility] * (ABNORMAL) CBC (11/02/2024 5:53 AM EDT) Pathologist [facility] [place] WBC 5.8 3.8 - 10.8 10E3/uL 11/02/2024 6:21 AM EDT [facility] RBC 3.12(L) 4.20 - 5.80 10E6/uL 11/02/2024 6:21 AM EDT [facility] Hemoglobin 9.2(L) 13.2 - 17.1 g/dL 11/02/2024 6:21 AM EDT [facility] Hematocrit 27.5(L) 38.5 - 50.0 % 11/02/2024 6:21 AM EDT [facility] MCV 87.9 80.0 - 100.0 fL 11/02/2024 6:21 AM EDT [facility] MCH 29.5 27.0 - 33.0 pg 11/02/2024 6:21 AM EDT [facility] MCHC 33.5 32.0 - 36.0 g/dL 11/02/2024 6:21 AM EDT [facility] RDW 17.5(H) 11.0 - 15.0 % 11/02/2024 6:21 AM EDT [facility] Platelets 61(L) 140 - 400 10E3/uL 11/02/2024 6:21 AM EDT [facility] MPV 7.9 7.5 - 11.5 fL 11/02/2024 6:21 AM EDT [facility] Whole Blood 11/02/2024 5:53 AM EDT 11/02/2024 6:12 AM EDT Beata Horner [facility] LAB BLOOD ORDERABLES Denisse l Result [facility] [address] [place] [address], [facility] * (ABNORMAL) POC Glucose Monitoring Device (11/01/2024 9:26 PM EDT) Pathologist [facility] [place] POC Glucose Monitoring Device 199(H) 70 - 100 mg/dL 11/01/2024 9:27 PM EDT [facility] Blood 11/01/2024 9:26 PM EDT 11/01/2024 9:27 PM EDT Semaj Mcnair III, MD POINT OF CARE TEST ORDERABLES Final Result [facility] [address] * (ABNORMAL) POC Glucose Monitoring Device (11/01/2024 5:04 PM EDT) POC Glucose Monitoring Device 255(H) 70 - 100 mg/dL 11/01/2024 5:05 PM EDT [facility] Blood 11/01/2024 5:04 PM EDT 11/01/2024 5:05 PM EDT Semaj Mcnair III, MD POINT OF CARE TEST ORDERABLES Final Result Performing Organization Address City/[facility] Co de Phone Number [facility] [address] * (ABNORMAL) Renal Function Panel w/EGFR, STAT (11/01/2024 2:17 PM EDT) Sodium 139 133 - 146 mmol/L 11/01/2024 3:10 PM EDT [facility] Potassium 3.3(L) 3.5 - 5.3 mmol/L 11/01/2024 3:10 PM EDT [facility] Chloride 107 98 - 110 mmol/L 11/01/2024 3:10 PM EDT [facility] CO2 24 21 - 33 mmol/L 11/01/2024 3:10 PM EDT [facility] Anion Gap 8 3 - 16 mmol/L 11/01/2024 3:10 PM EDT [facility] BUN 35(H) 7 - 25 mg/dL 11/01/2024 3:10 PM EDT [facility] Creatinine 1.22 0.60 - 1.30 mg/dL 11/01/2024 3:10 PM EDT [facility] Glucose 203(H) 70 - 100 mg/dL 11/01/2024 3:10 PM EDT [facility] Calcium 8.3(L) 8.6 - 10.3 mg/dL 11/01/2024 3:10 PM EDT [facility] Phosphorus 2.2 2.1 - 4.7 mg/dL 11/01/2024 3:10 PM EDT [facility] Albumin 3.4(L) 3.5 - 5.7 g/dL 11/01/2024 3:10 PM EDT [facility] Osmolality, Calculated 302 278 - 305 mOsm/kg 11/01/2024 3:10 PM EDT [facility] EGFR 76 11/01/2024 3:10 PM EDT [facility] Comment:As of 2021, the estimated [...] Marks MD LAB BLOOD ORDERABLES Final Result [facility] [address] [place] [address], [facility] * X-ray Portable Abdomen [...] Monitoring Device (11/01/2024 12:22 PM EDT) Pathologist [facility] [place] POC Glucose Monitoring Device 144(H) 70 - 100 mg/dL 11/01/2024 12:23 PM EDT [facility] Blood 11/01/2024 12:2 2 PM EDT 11/01/2024 12:23 PM EDT Semaj Mcnair III, MD POINT OF CARE TEST ORDERABLES Final Result [facility] [address] * (ABNORMAL) POC Glucose Monitoring Device (11/01/2024 8:50 AM EDT) [facility] POC Glucose Monitoring Device 175(H) 70 - 100 mg/dL 11/01/2024 8:51 AM EDT [facility] Blood 11/01/2024 8:50 AM EDT 11/01/2024 8:51 AM EDT Semaj Mcnair III, MD POINT OF CARE TEST ORDERABLES Final Result [facility] [address] [facility] [place]. [address] * Tacrolimus level (11/01/2024 6:01 AM EDT) [facility] Tacrolimus (LC-MS) 7.5 3.0 - 15.0 ng/mL 11/01/2024 12:14 PM EDT [facility] Comment:Performed via liquid chromatography tandem mass spectrometry. Detection limit: 1 ng/mL. Individual target concentrations may vary due to target organ and time after transplant. This test has been developed and its performance characteristics determined by [facility] which is certified under [...] PharmD LAB BLOOD ORDERABLES Denisse l Result [facility] [address] [facility] [place]. [address] * (ABNORMAL) Renal Function Panel w/EGFR (11/01/2024 6:01 AM EDT) [facility] Sodium 139 133 - 146 mmol/L 11/01/2024 6:57 AM EDT [facility] Potassium 3.3(L) 3.5 - 5.3 mmol/L 11/01/2024 6:57 AM EDT [facility] Chloride 108 98 - 110 mmol/L 11/01/2024 6:57 AM EDT [facility] CO2 22 21 - 33 mmol/L 11/01/2024 6:57 AM EDT [facility] Anion Gap 9 3 - 16 mmol/L 11/01/2024 6:57 AM EDT [facility] BUN 37(H) 7 - 25 mg/dL 11/01/2024 6:57 AM EDT [facility] Creatinine 1.30 0.60 - 1.30 mg/dL 11/01/2024 6:57 AM T [facility] Glucose 163(H) 70 - 100 mg/dL 11/01/2024 6:57 AM EDT [facility] Calcium 8.2(L) 8.6 - 10.3 mg/dL 11/01/2024 6:57 AM EDT [facility] Phosphorus 2.9 2.1 - 4.7 mg/dL 11/01/2024 6:57 AM EDT [facility] Albumin 3.1(L) 3.5 - 5.7 g/dL 11/01/2024 6:57 AM EDT [facility] Osmolality, Calculated 300 278 - 305 mOsm/kg 11/01/2024 6:57 AM EDT [facility] EGFR 71 11/01/2024 6:57 AM EDT [facility] Comment:As of 2021, the estimated [...] 11/01/2024 6:20 AM EDT Beata Garlandbrook Horner [employer] LAB BLOOD ORDERABLES Denisse l Result Performing Organization Address City/[facility]/ZIP Co de Phone Number [facility] [address] * Magnesium (11/01/2024 6:01 AM EDT) Magnesium 1.5 1.5 - 2.5 mg/dL 11/01/2024 6:57 AM EDT [facility] Plasma 11/01/2024 6:01 AM EDT 11/01/2024 6:20 AM EDT Beata Horner [facility] LAB BLOOD ORDERABLES Denisse l Result Performing Organization Address [facility] Co de Phone Number [facility] [address] * (ABNORMAL) Hepatic Function Panel (11/01/2024 6:01 AM EDT) Total Bilirubin 2.0(H) 0.0 - 1.5 mg/dL 11/01/2024 6:57 AM EDT [facility] Bilirubin, Direct 1.06(H) 0.00 - 0.40 mg/dL 11/01/2024 6:57 AM EDT [facility] AST 21 13 - 39 U/L 11/01/2024 6:57 AM EDT [facility] ALT 62(H) 7 - 52 U/L 11/01/2024 6:57 AM EDT [facility] Alkaline Phosphatase 114 36 - 125 U/L 11/01/2024 6:57 AM EDT [facility] Total Protein 4.6(L) 6.4 - 8.9 g/dL 11/01/2024 6:57 AM EDT [facility] Albumin 3.1(L) 3.5 - 5.7 g/dL 11/01/2024 6:57 AM EDT [facility] Bilirubin, Indirect 0.94 0.00 - 1.10 mg/dL 11/01/2024 6:57 AM EDT [facility] Plasma 11/01/2024 6:01 AM EDT 11/01/2024 6:20 AM EDT Beata Horner [employer] LAB BLOOD ORDERABLES Denisse l Result [facility] [address] [id number] * (ABNORMAL) CBC (11/01/2024 6:01 AM EDT) WBC 5.9 3.8 - 10.8 10E3/uL 11/01/2024 6:29 AM EDT [facility] RBC 3.19(L) 4.20 - 5.80 10E6/uL 11/01/2024 6:29 AM EDT [facility] Hemoglobin 9.5(L) 13.2 - 17.1 g/dL 11/01/2024 6:29 AM EDT [facility] Hematocrit 27.8(L) 38.5 - 50.0 % 11/01/2024 6:29 AM EDT [facility] MCV 87.1 80.0 - 100.0 fL 11/01/2024 6:29 AM EDT [facility] MCH 29.9 27.0 - 33.0 pg 11/01/2024 6:29 AM EDT [facility] MCHC 34.3 32.0 - 36.0 g/dL 11/01/2024 6:29 AM EDT [facility] RDW 17.4(H) 11.0 - 15.0 % 11/01/2024 6:29 AM EDT [facility] Platelets 56(L) 140 - 400 10E3/uL 11/01/2024 6:29 AM EDT [facility] MPV 8.3 7.5 - 11.5 fL 11/01/2024 6:29 AM EDT [facility] Whole Blood 11/01/2024 6:01 AM EDT 11/01/2024 6:19 AM EDT us Beata Horner [facility] LAB BLOOD ORDERABLES Denisse l Result [facility] [address] [facility] * (ABNORMAL) POC Glucose Monitoring Device (10/31/2024 9:15 PM EDT) POC Glucose Monitoring Device 171(H) 70 - 100 mg/dL 10/31/2024 9:15 PM EDT [facility] Blood 10/31/2024 9:15 PM EDT 10/31/2024 9:15 PM EDT Semaj Mcnair III, MD POINT OF CARE TEST ORDERABLES Final Result Performing Organization Address [facility] Co de Phone Number [facility] [address] [facility]. [address] * (ABNORMAL) POC Glucose Monitoring Device (10/31/2024 5:56 PM EDT) POC Glucose Monitoring Device 179(H) 70 - 100 mg/dL 10/31/2024 5:57 PM EDT [facility] Blood 10/31/2024 5:56 PM EDT 10/31/2024 5:57 PM EDT Semaj Mcnair III, MD POINT OF CARE TEST ORDERABLES Final Result [facility] [address] [facility]. [address] * CT Abdomen and Pelvis WO [...] Adrenal gland: No focal nodule seen. Kidneys: [place] kidneys noted with nonobstructing calcifications on the right. Findings of postsurgical changes in the left [place] kidney. Mild right hydronephrosis without an obstructive [...] Adrenal gland: No focal nodule seen. Kidneys: [place] kidneys noted with nonobstructing calcifications on theright. Findings of postsurgical changes in the left [place] kidney. Mildright hydronephrosis without an obstructive course [...] QT: 400 ms QTc: 456 ms P Voca: 49 degrees R Voca: 3 degrees T Voca: 14 degrees Diagnosis Line: NORMAL SINUS RHYTHM ^ NORMAL ECG ^ ^ Confirmed by MD REID JAMES ([id number]) on 11/02/2024 6:56:52 AM Priti Geiger CNP ECG ORDERABLES Final Result MUSE * (ABNORMAL) Urinalysis w/Rfl to Microscopic (10/31/2024 1:18 PM EDT) Color, UA Straw Yellow,Straw 10/31/2024 1:46 PM EDT [facility] Clarity, UA Clear Clear 10/31/2024 1:46 PM EDT [facility] Specific [place], UA 1.013 1.005 - 1.035 10/31/2024 1:46 PM EDT [facility] pH, UA 6.5 5.0 - 8.0 10/31/2024 1:46 PM EDT [facility] Protein, UA Negative Negative mg/dL 10/31/2024 1:46 PM EDT [facility] Glucose, UA Negative Negative mg/dL 10/31/2024 1:46 PM EDT [facility] Ketones, UA Negative Negative mg/dL 10/31/2024 1:46 PM EDT [facility] Bilirubin, UA Negative Negative 10/31/2024 1:46 PM EDT [facility] Blood, UA Large(A) Negative 10/31/2024 1:46 PM EDT [facility] Nitrite, UA Negative Negative 10/31/2024 1:46 PM EDT [facility] Urobilinogen, UA <2.0 0.2 - 1.9 mg/dL 10/31/2024 1:46 PM EDT [facility] Leukocyte Esterase, UA Negative Negative 10/31/2024 1:46 PM EDT [facility] RBC, UA >100(H) 0 - 3 /HPF 10/31/2024 1:46 PM EDT [facility] WBC, UA 3 0 - 5 /HPF 10/31/2024 1:46 PM EDT [facility] Hyaline Casts, UA 3(H) 0 - 2 /LPF 10/31/2024 1:46 PM EDT [facility] Urine 10/31/2024 1:18 PM EDT 10/31/2024 1:32 PM EDT Priti Geiger CNP URINE ORDERABLES Final Result [facility] [address] [place] * (ABNORMAL) Post Kidney Transplant Urine Culture (10/31/2024 1:18 PM EDT) Culture Result Enterococcus faecium, Vancomycin Resistant(A) [facility] Comment: 1,000- <10,000 cfu/mL Identified [...] MICROBIOLOGY - GENERAL ORDERA BLES Final Result [facility] [address] * (ABNORMAL) POC Glucose Monitoring Device (10/31/2024 11:59 AM EDT) Pathologist [facility] [place] POC Glucose Monitoring Device 130(H) 70 - 100 mg/dL 10/31/2024 12:21 PM EDT [facility] Blood 10/31/2024 11:5 9 AM EDT 10/31/2024 12:21 PM EDT Semaj Mcnair III, MD POINT OF CARE TEST ORDERABLES Final Result [facility] [address] * US Abdomen Limited (10/31/2024 10:19 [...] EXAM: US ABDOMEN LIMITED EXAM: US DUPLEX [id number] COMPLETE INDICATION: Post-op liver transplant COMPARISON: None [...] visualized secondary to poor acoustic windows. [place] right kidney measures 11.6 cm in length. [...] EXAM: US ABDOMEN LIMITED EXAM: US DUPLEX [id number] COMPLETE INDICATION: Post-op liver transplant COMPARISON: None [...] well visualized secondary to poor acousticwindows. [place] right kidney measures 11.6 cm in length. [...] at 10/31/2024 10:35 AM EDT Beata Horner [facility] US ORDERABLES Final R esult * [...] 10/31/2024 10:29 AM EDT us Beata Horner [facility] IM US ORDERABLES Final R esult * US Duplex [id number] Comp (10/31/2024 10:19 AM EDT) Anatomical Region [...] EXAM: US ABDOMEN LIMITED EXAM: US DUPLEX [id number] COMPLETE INDICATION: Post-op liver transplant COMPARISON: None [...] visualized secondary to poor acoustic windows. [place] right kidney measures 11.6 cm in length. [...] EXAM: US ABDOMEN LIMITED EXAM: US DUPLEX [id number] COMPLETE INDICATION: Post-op liver transplant COMPARISON: None [...] well visualized secondary to poor acousticwindows. [place] right kidney measures 11.6 cm in length. [...] at 10/31/2024 10:35 AM EDT Beata Horner [facility] US ORDERABLES Final R esult * ECG 12-lead (MUSE) (10/31/2024 8:57 AM EDT) 10/31/2024 8:57 AM EDT Narrative MUSE - 11/01/2024 9:21 AM EDT Ventricular Rate: 83 BPM Atrial Rate: 83 BPM P-R Interval: 168 ms QRS Duration: 102 ms QT: 392 ms QTc: 460 ms P Voca: 64 degrees R Voca: -18 degrees T Voca: 7 degrees Diagnosis Line: NORMAL SINUS RHYTHM ^ NORMAL ECG ^ ^ Confirmed by MD JOE, KIMBERLYIIA ([id number]) on 11/01/2024 9:21:13 AM Priti Geiger [employer] ECG ORDERABLES Final Result MUSE * (ABNORMAL) POC Glucose Monitoring Device (10/31/2024 8:44 AM EDT) POC Glucose Monitoring Device 145(H) 70 - 100 mg/dL 10/31/2024 8:45 AM EDT [facility] Blood 10/31/2024 8:44 AM EDT 10/31/2024 8:44 AM EDT Semaj Mcnair III, MD POINT OF CARE TEST ORDERABLES Final Result Performing Organization Address [facility] de Phone Number [facility] [address] * Tacrolimus level (10/31/2024 6:40 AM EDT) Pathologist [facility] [place] Tacrolimus (LC-MS) 8.4 3.0 - 15.0 ng/mL 10/31/2024 10:05 AM EDT [facility] Comment:Performed via liquid chromatography tandem mass spectrometry. Detection limit: 1 ng/mL. Individual target concentrations may vary due to target organ and time after transplant. This test has been developed and its performance characteristics determined by [facility] which is certified under [...] ORDERABLES Denisse l Result Performing Organization Address [facility] Co de Phone Number [facility] [address] [facility] * (ABNORMAL) Renal Function Panel w/EGFR (10/31/2024 6:40 AM EDT) Sodium 141 133 - 146 mmol/L 10/31/2024 8:09 AM EDT [facility] Potassium 3.5 3.5 - 5.3 mmol/L 10/31/2024 8:09 AM EDT [facility] Chloride 111(H) 98 - 110 mmol/L 10/31/2024 8:09 AM EDT [facility] CO2 20(L) 21 - 33 mmol/L 10/31/2024 8:09 AM EDT [facility] Anion Gap 10 3 - 16 mmol/L 10/31/2024 8:09 AM EDT [facility] BUN 54(H) 7 - 25 mg/dL 10/31/2024 8:09 AM EDT [facility] Creatinine 1.75(H) 0.60 - 1.30 mg/dL 10/31/2024 8:09 AM EDT [facility] Glucose 136(H) 70 - 100 mg/dL 10/31/2024 8:09 AM EDT [facility] Calcium 8.7 8.6 - 10.3 mg/dL 10/31/2024 8:09 AM EDT [facility] Phosphorus 4.1 2.1 - 4.7 mg/dL 10/31/2024 8:09 AM T [facility] Albumin 3.2(L) 3.5 - 5.7 g/dL 10/31/2024 8:09 AM [facility] Osmolality, Calculated 309(H) 278 - 305 mOsm/kg 10/31/2024 8:09 AM [facility] EGFR 50 10/31/2024 8:09 AM T [facility] Comment:As of 2021, the estimated [...] EDT 10/31/2024 7:35 AM EDT Beata Horner [facility] LAB BLOOD ORDERABLES Denisse l Result [facility] [address] [facility] [place]. [address] * Magnesium (10/31/2024 6:40 AM EDT) Magnesium 1.8 1.5 - 2.5 mg/dL 10/31/2024 8:09 AM EDT [facility] Plasma 10/31/2024 6:40 AM EDT 10/31/2024 7:35 AM EDT Beata Garland Evens [employer] LAB BLOOD ORDERABLES Denisse l Result Performing Organization Address City/[facility] Co de Phone Number [facility] [address] [facility] [place]. [address] * (ABNORMAL) Hepatic Function Panel (10/31/2024 6:40 AM EDT) Total Bilirubin 2.7(H) 0.0 - 1.5 mg/dL 10/31/2024 8:09 AM EDT [facility] Bilirubin, Direct 1.57(H) 0.00 - 0.40 mg/dL 10/31/2024 8:09 AM EDT [facility] AST 26 13 - 39 U/L 10/31/2024 8:09 AM EDT [facility] ALT 68(H) 7 - 52 U/L 10/31/2024 8:09 AM EDT [facility] Alkaline Phosphatase 112 36 - 125 U/L 10/31/2024 8:09 AM EDT [facility] Total Protein 4.7(L) 6.4 - 8.9 g/dL 10/31/2024 8:09 AM EDT [facility] Albumin 3.2(L) 3.5 - 5.7 g/dL 10/31/2024 8:09 AM EDT [facility] Bilirubin, Indirect 1.13(H) 0.00 - 1.10 mg/dL 10/31/2024 8:09 AM EDT [facility] Plasma 10/31/2024 6:40 AM EDT 10/31/2024 7:35 AM EDT us Beata Dada Bessn [facility] BLOOD ORDERABLES Denisse l Result [facility] [address] [facility] [place]. [address] * (ABNORMAL) CBC (10/31/2024 6:40 AM EDT) WBC 6.0 3.8 - 10.8 10E3/uL 10/31/2024 8:05 AM EDT [facility] RBC 3.14(L) 4.20 - 5.80 10E6/uL 10/31/2024 8:05 AM EDT [facility] Hemoglobin 9.6(L) 13.2 - 17.1 g/dL 10/31/2024 8:05 AM EDT [facility] Hematocrit 27.5(L) 38.5 - 50.0 % 10/31/2024 8:05 AM EDT [facility] MCV 87.6 80.0 - 100.0 fL 10/31/2024 8:05 AM EDT [facility] MCH 30.7 27.0 - 33.0 pg 10/31/2024 8:05 AM EDT [facility] MCHC 35.0 32.0 - 36.0 g/dL 10/31/2024 8:05 AM EDT [facility] RDW 17.9(H) 11.0 - 15.0 % 10/31/2024 8:05 AM EDT [facility] Platelets 44(L) 140 - 400 10E3/uL 10/31/2024 8:05 AM EDT [facility] Comment: CNV Specimen checked for clots. None detected. MPV 8.9 7.5 - 11.5 fL 10/31/2024 8:05 AM EDT [facility] Whole Blood 10/31/2024 6:40 AM EDT 10/31/2024 7:34 AM EDT Beata Horner [facility] BLOOD ORDERABLES Denisse l Result [facility] [address] * (ABNORMAL) POC Glucose Monitoring Device (10/30/2024 9:01 PM EDT) POC Glucose Monitoring Device 144(H) 70 - 100 mg/dL 10/30/2024 9:02 PM EDT [facility] Blood 10/30/2024 9:01 PM EDT 10/30/2024 9:01 PM EDT Semaj Mcnair III, MD POINT OF CARE TEST ORDERABLES Final Result [facility] [address] * (ABNORMAL) POC Glucose Monitoring Device (10/30/2024 5:37 PM EDT) POC Glucose Monitoring Device 124(H) 70 - 100 mg/dL 10/30/2024 5:47 PM EDT [facility] Blood 10/30/2024 5:37 PM EDT 10/30/2024 5:47 PM EDT us Semaj Mcnair III, MD POINT OF CARE TEST ORDERABLES Final Result [facility] [facility] [address] * (ABNORMAL) POC Glucose Monitoring Device (10/30/2024 7:26 AM EDT) POC Glucose Monitoring Device 150(H) 70 - 100 mg/dL 10/30/2024 7:27 AM EDT [facility] Blood 10/30/2024 7:26 AM EDT 10/30/2024 7:27 AM EDT us Semaj Mcnair III, MD POINT OF CARE TEST ORDERABLES Final Result [facility] [address] * Tacrolimus level (10/30/2024 7:13 AM EDT) Tacrolimus (LC-MS) 9.5 3.0 - 15.0 ng/mL 10/30/2024 2:53 PM EDT [facility] Comment:Performed via liquid chromatography tandem mass spectrometry. Detection limit: 1 ng/mL. Individual target concentrations may vary due to target organ and time after transplant. This test has been developed and its performance characteristics determined by [facility] which is certified under the Clinical Laboratory [...] 7:13 AM EDT 10/30/2024 7:26 AM EDT [facility] BLOOD ORDERABLES Final Re sult [facility] [address] * ECG 12-lead (MUSE) (10/30/2024 6:51 AM EDT) 10/30/2024 6:51 AM EDT Narrative MUSE - 11/01/2024 9:21 AM EDT Ventricular Rate: 92 BPM Atrial Rate: 92 BPM P-R Interval: 174 ms QRS Duration: 96 ms QT: 376 ms QTc: 464 ms P Voca: 54 degrees R Voca: -24 degrees T Voca: 11 degrees Diagnosis Line: NORMAL SINUS RHYTHM ^ NORMAL ECG ^ ^ Confirmed by MD JOE, OTIS ([id number]) on 11/01/2024 9:21:09 AM [facility] ECG ORDERABLES Final Result MUSE * (ABNORMAL) Renal Function Panel w/EGFR (10/30/2024 5:41 AM EDT) Sodium 140 133 - 146 mmol/L 10/30/2024 6:18 AM EDT [facility] Potassium 3.8 3.5 - 5.3 mmol/L 10/30/2024 6:18 AM EDT [facility] Chloride 111(H) 98 - 110 mmol/L 10/30/2024 6:18 AM EDT [facility] CO2 17(L) 21 - 33 mmol/L 10/30/2024 6:18 AM EDT [facility] Anion Gap 12 3 - 16 mmol/L 10/30/2024 6:18 AM EDT [facility] BUN 62(H) 7 - 25 mg/dL 10/30/2024 6:18 AM EDT [facility] Creatinine 1.96(H) 0.60 - 1.30 mg/dL 10/30/2024 6:18 AM EDT [facility] Glucose 116(H) 70 - 100 mg/dL 10/30/2024 6:18 AM EDT [facility] Calcium 9.0 8.6 - 10.3 mg/dL 10/30/2024 6:18 AM EDT [facility] Phosphorus 4.6 2.1 - 4.7 mg/dL 10/30/2024 6:18 AM EDT [facility] Albumin 3.2(L) 3.5 - 5.7 g/dL 10/30/2024 6:18 AM EDT [facility] Osmolality, Calculated 309(H) 278 - 305 mOsm/kg 10/30/2024 6:18 AM EDT [facility] EGFR 43 10/30/2024 6:18 AM EDT [facility] Comment:As of 2021, the estimated [...] 10/30/2024 5:47 AM EDT Beata [place] Horner [employer] LAB BLOOD ORDERABLES Denisse l Result Performing Organization Address City/[facility]/ZIP Co de Phone Number [facility] [address] * Magnesium (10/30/2024 5:41 AM EDT) Magnesium 2.2 1.5 - 2.5 mg/dL 10/30/2024 6:18 AM EDT [facility] Plasma 10/30/2024 5:41 AM EDT 10/30/2024 5:47 AM EDT [facility] BLOOD ORDERABLES Denisse l Result Performing Organization Address [facility] Co de Phone Number [facility] [address] * (ABNORMAL) Hepatic Function Panel (10/30/2024 5:41 AM EDT) Total Bilirubin 3.6(H) 0.0 - 1.5 mg/dL 10/30/2024 6:18 AM EDT [facility] Bilirubin, Direct 1.95(H) 0.00 - 0.40 mg/dL 10/30/2024 6:18 AM EDT [facility] AST 33 13 - 39 U/L 10/30/2024 6:18 AM EDT [facility] ALT 71(H) 7 - 52 U/L 10/30/2024 6:18 AM EDT [facility] Alkaline Phosphatase 80 36 - 125 U/L 10/30/2024 6:18 AM EDT [facility] Total Protein 4.8(L) 6.4 - 8.9 g/dL 10/30/2024 6:18 AM EDT [facility] Albumin 3.2(L) 3.5 - 5.7 g/dL 10/30/2024 6:18 AM EDT [facility] Bilirubin, Indirect 1.65(H) 0.00 - 1.10 mg/dL 10/30/2024 6:18 AM EDT [facility] Plasma 10/30/2024 5:41 AM EDT 10/30/2024 5:47 AM EDT us Beata Horner [employer] [facility] BLOOD ORDERABLES Denisse valle Result [facility] [address] [place] [address], [facility] * (ABNORMAL) CBC (10/30/2024 5:41 AM EDT) WBC 8.1 3.8 - 10.8 10E3/uL 10/30/2024 8:06 AM EDT [facility] RBC 3.29(L) 4.20 - 5.80 10E6/uL 10/30/2024 8:06 AM EDT [facility] Hemoglobin 10.1(L) 13.2 - 17.1 g/dL 10/30/2024 8:06 AM EDT [facility] Hematocrit 28.8(L) 38.5 - 50.0 % 10/30/2024 8:06 AM EDT [facility] MCV 87.6 80.0 - 100.0 fL 10/30/2024 8:06 AM EDT [facility] MCH 30.6 27.0 - 33.0 pg 10/30/2024 8:06 AM EDT [facility] MCHC 34.9 32.0 - 36.0 g/dL 10/30/2024 8:06 AM EDT [facility] RDW 18.1(H) 11.0 - 15.0 % 10/30/2024 8:06 AM EDT [facility] Platelets 44(L) 140 - 400 10E3/uL 10/30/2024 8:06 AM EDT [facility] Comment: CNV Specimen checked for clots. None detected. MPV 8.3 7.5 - 11.5 fL 10/30/2024 8:06 AM EDT [facility] Whole Blood 10/30/2024 5:41 AM EDT 10/30/2024 5:50 AM EDT Beata Horner [facility] BLOOD ORDERABLES Denisse l Result Performing Organization Address City/[facility]/ZIP Co de Phone Number [facility] [address] [place] [address]. [address] * (ABNORMAL) POC Glucose Monitoring Device (10/29/2024 10:18 PM EDT) POC Glucose Monitoring Device 140(H) 70 - 100 mg/dL 10/29/2024 10:18 PM EDT [facility] Blood 10/29/2024 10:1 8 PM EDT 10/29/2024 10:18 PM EDT us Semaj Mcnair III, MD POINT OF CARE TEST ORDERABLES Final Result Performing Organization Address [facility] Co de Phone Number [facility] [address] [place] [address]. [address] * (ABNORMAL) POC Glucose Monitoring Device (10/29/2024 6:42 PM EDT) POC Glucose Monitoring Device 152(H) 70 - 100 mg/dL 10/29/2024 6:43 PM EDT [facility] Blood 10/29/2024 6:4 2 PM EDT 10/29/2024 6:43 PM EDT us Semaj Mcnair III, MD POINT OF CARE TEST ORDERABLES Final Result Performing Organization Address City/[facility]/ZIP Co de Phone Number [facility] [address] [place] [address]. [address] * (ABNORMAL) POC Glucose Monitoring Device (10/29/2024 11:35 AM EDT) POC Glucose Monitoring Device 130(H) 70 - 100 mg/dL 10/29/2024 11:36 AM EDT [facility] Blood 10/29/2024 11:3 5 AM EDT 10/29/2024 11:36 AM EDT Semaj Mcnair III, MD POINT OF CARE TEST ORDERABLES Final Result Performing Organization Address City/[facility] Co de Phone Number [facility] [address] [place] [address], [facility] * ECG 12 lead (MUSE) (10/29/2024 9:34 AM EDT) 10/29/2024 9:34 AM EDT Narrative MUSE - 10/29/2024 10:34 PM EDT Ventricular Rate: 97 BPM Atrial Rate: 97 BPM P-R Interval: 186 ms QRS Duration: 104 ms QT: 382 ms QTc: 485 ms P Voca: 54 degrees R Voca: -21 degrees T Voca: 1 degrees Diagnosis Line: NORMAL SINUS RHYTHM ^ NORMAL ECG ^ Confirmed by JORGE MACIAS ([id number]) on 10/29/2024 10:34:50 PM Afshan Bear MD ECG ORDERABLES Final Result Performing Organization Address [facility] Co de Phone Number MUSE * Tacrolimus level (10/29/2024 8:08 AM EDT) Tacrolimus (LC-MS) 10.4 3.0 - 15.0 ng/mL 10/29/2024 2:07 PM EDT [facility] Comment:Performed via liquid chromatography tandem mass spectrometry. Detection limit: 1 ng/mL. Individual target concentrations may vary due to target organ and time after transplant. This test has been developed and its performance characteristics determined by [facility] which is certified under [...] EDT 10/29/2024 8:21 AM EDT Priti Geiger [facility] BLOOD ORDERABLES Final Re sult [facility] [address] [place] [address], [facility] * Prepare RBC, leukoreduced, 1 Units (10/29/2024 6:16 AM EDT) Product Code M9311A53 HCLL Unit Number [id number] HCLL Dispense Status Presumed Transfused_PT HCLL Blood Expiration Date [id number] HCLL Coding System [id number] HCLL Blood Bank Product Shay Plata MD BLOOD BANK PRODUCT O RDERABLES Final Result Performing Organization Address [facility] Co de Phone Number HCLL * Prepare RBC, leukoreduced, 1 Units (10/29/2024 6:15 AM EDT) Product Code E2963W06 HCLL Unit Number [id number] HCLL Dispense Status Presumed Transfused_PT HCLL Blood Expiration Date [id number] HCLL Coding System [id number] HCLL Blood Bank Product Carlos Marks MD BLOOD BANK PRODUCT ORDERABL ES Final Result Performing Organization Address [facility] Co de Phone Number HCLL * Prepare RBC, leukoreduced, 1 Units (10/29/2024 6:15 AM EDT) Product Code E1666P92 HCLL Unit Number [id number] HCLL Dispense Status Presumed Transfused_PT HCLL Blood Expiration Date [id number] HCLL Coding System [id number] HCLL Blood Bank Product John Moreno MD BLOOD BANK PRODUCT ORDERABLE S Final Result Performing Organization Address [facility] Co de Phone Number HCLL * (ABNORMAL) Renal Function Panel w/EGFR (10/29/2024 5:07 AM EDT) Sodium 144 133 - 146 mmol/L 10/29/2024 5:49 AM EDT [facility] Potassium 3.8 3.5 - 5.3 mmol/L 10/29/2024 5:49 AM EDT [facility] Chloride 113(H) 98 - 110 mmol/L 10/29/2024 5:49 AM EDT [facility] CO2 17(L) 21 - 33 mmol/L 10/29/2024 5:49 AM EDT [facility] Anion Gap 14 3 - 16 mmol/L 10/29/2024 5:49 AM EDT [facility] BUN 57(H) 7 - 25 mg/dL 10/29/2024 5:49 AM EDT [facility] Creatinine 1.93(H) 0.60 - 1.30 mg/dL 10/29/2024 5:49 AM EDT [facility] Glucose 110(H) 70 - 100 mg/dL 10/29/2024 5:49 AM EDT [facility] Calcium 9.3 8.6 - 10.3 mg/dL 10/29/2024 5:49 AM EDT [facility] Phosphorus 4.8(H) 2.1 - 4.7 mg/dL 10/29/2024 5:49 AM EDT [facility] Albumin 3.5 3.5 - 5.7 g/dL 10/29/2024 5:49 AM EDT [facility] Osmolality, Calculated 314(H) 278 - 305 mOsm/kg 10/29/2024 5:49 AM EDT [facility] EGFR 44 10/29/2024 5:49 AM EDT [facility] Comment:As of 2021, the estimated [...] 10/29/2024 5:13 AM EDT Beata [place] Horner [employer] [facility] BLOOD ORDERABLES Denisse l Result Performing Organization Address City/[facility]/ZIP Co de Phone Number [facility] [address] * Magnesium (10/29/2024 5:07 AM EDT) Magnesium 2.1 1.5 - 2.5 mg/dL 10/29/2024 5:49 AM EDT [facility] Plasma 10/29/2024 5:07 AM EDT 10/29/2024 5:13 AM EDT [facility] [place] [facility] BLOOD ORDERABLES Denisse l Result Performing Organization Address [facility] Co de Phone Number [facility] [address] * (ABNORMAL) Hepatic Function Panel (10/29/2024 5:07 AM EDT) Total Bilirubin 4.2(H) 0.0 - 1.5 mg/dL 10/29/2024 5:49 AM EDT [facility] Bilirubin, Direct 2.85(H) 0.00 - 0.40 mg/dL 10/29/2024 5:49 AM EDT [facility] AST 31 13 - 39 U/L 10/29/2024 5:49 AM EDT [facility] ALT 88(H) 7 - 52 U/L 10/29/2024 5:49 AM EDT [facility] Alkaline Phosphatase 51 36 - 125 U/L 10/29/2024 5:49 AM EDT [facility] Total Protein 5.2(L) 6.4 - 8.9 g/dL 10/29/2024 5:49 AM EDT [facility] Albumin 3.5 3.5 - 5.7 g/dL 10/29/2024 5:49 AM EDT [facility] Bilirubin, Indirect 1.35(H) 0.00 - 1.10 mg/dL 10/29/2024 5:49 AM EDT [facility] Plasma 10/29/2024 5:07 AM EDT 10/29/2024 5:13 AM EDT us Beata Horner [employer] LAB BLOOD ORDERABLES Denisse l Result [facility] [address] [facility] [place] [address], [facility] * (ABNORMAL) CBC (10/29/2024 5:07 AM EDT) WBC 7.8 3.8 - 10.8 10E3/uL 10/29/2024 5:38 AM EDT [facility] RBC 3.05(L) 4.20 - 5.80 10E6/uL 10/29/2024 5:38 AM EDT [facility] Hemoglobin 9.0(L) 13.2 - 17.1 g/dL 10/29/2024 5:38 AM EDT [facility] Hematocrit 26.7(L) 38.5 - 50.0 % 10/29/2024 5:38 AM EDT [facility] MCV 87.4 80.0 - 100.0 fL 10/29/2024 5:38 AM EDT [facility] MCH 29.7 27.0 - 33.0 pg 10/29/2024 5:38 AM EDT [facility] MCHC 33.9 32.0 - 36.0 g/dL 10/29/2024 5:38 AM EDT [facility] RDW 18.3(H) 11.0 - 15.0 % 10/29/2024 5:38 AM EDT [facility] Platelets 41(L) 140 - 400 10E3/uL 10/29/2024 5:38 AM EDT [facility] Comment: CNV Specimen checked for clots. None detected. MPV 7.5 7.5 - 11.5 fL 10/29/2024 5:38 AM EDT [facility] Whole Blood 10/29/2024 5:07 AM EDT 10/29/2024 5:13 AM EDT Beata [place] Horner CNP LAB BLOOD ORDERABLES Denisse l Result [facility] [address] * (ABNORMAL) TEG-Bypass/ECMO/Liver HN (Factor function, Platelet/Fibrin Clot Strength w/Clot Breakdown, Heparinase In All Channels) (10/29/2024 5:07 AM EDT) [facility] Citrated Kaolin Reaction Time (TEGECMOLIVER) 8.9 4.6 - 9.1 minutes 10/29/2024 7:04 AM EDT [facility] Citrated Kaolin W/Heparinase Reaction Time (TEGECMOLIVER) 7.4 4.3 - 8.3 minutes 10/29/2024 7:04 AM EDT [facility] Citrated Kaolin Maximum Amplitude (TEGECMOLIVER) 52.9 52.0 - 69.0 mm 10/29/2024 7:04 AM EDT [facility] Citrated Functional Fibrinogen W/Heparinase Maximum Amplitude(TEGEC MOLIVER) 20.7 15.0 - 34.0 mm 10/29/2024 7:04 AM EDT [facility] Citrated Rapid Teg W/Heparinase Maximum Amplitude (TEGECMOLIVER) 49.7(L) 53.0 - 69.0 mm 10/29/2024 7:04 AM EDT [facility] Citrated Kaolin w/Heparinase Percent Lysis (TEGECMOLIVER) 0.0 0.0 - 3.2 % 10/29/2024 7:04 AM EDT [facility] Whole Blood (Citrate) 10/29/2024 5:07 AM EDT 10/29/2024 5:10 AM EDT Kemar Sahni MD LAB BLOOD ORDERABLES Final Result [facility] [address] * (ABNORMAL) TEG-Bypass/ECMO/Liver HN (Factor function, Platelet/Fibrin Clot Strength w/Clot Breakdown, Heparinase In All Channels) (10/28/2024 11:55 PM EDT) Citrated Kaolin Reaction Time (TEGECMOLIVER) 8.6 4.6 - 9.1 minutes 10/29/2024 2:01 AM EDT [facility] Citrated Kaolin W/Heparinase Reaction Time (TEGECMOLIVER) 8.7(H) 4.3 - 8.3 minutes 10/29/2024 2:01 AM EDT [facility] Citrated Kaolin Maximum Amplitude (TEGECMOLIVER) 47.9(L) 52.0 - 69.0 mm 10/29/2024 2:01 AM EDT [facility] Citrated Functional Fibrinogen W/Heparinase Maximum Amplitude(TEGEC MOLIVER) 22.0 15.0 - 34.0 mm 10/29/2024 2:01 AM EDT [facility] Citrated Rapid Teg W/Heparinase Maximum Amplitude (TEGECMOLIVER) 45.9(L) 53.0 - 69.0 mm 10/29/2024 2:01 AM EDT [facility] Citrated Kaolin w/Heparinase Percent Lysis (TEGECMOLIVER) 0.0 0.0 - 3.2 % 10/29/2024 2:01 AM EDT [facility] Whole Blood (Citrate) 10/28/2024 11:55 PM EDT 10/28/2024 11:58 PM EDT Kemar Sanhi MD LAB BLOOD ORDERABLES Final Result [facility] [address] [place] [address], [facility] * (ABNORMAL) CBC, STAT (10/28/2024 8:04 PM EDT) WBC 3.9 3.8 - 10.8 10E3/uL 10/28/2024 8:36 PM EDT [facility] RBC 2.66(L) 4.20 - 5.80 10E6/uL 10/28/2024 8:36 PM EDT [facility] Hemoglobin 8.0(L) 13.2 - 17.1 g/dL 10/28/2024 8:36 PM EDT [facility] Hematocrit 23.0(L) 38.5 - 50.0 % 10/28/2024 8:36 PM EDT [facility] MCV 86.4 80.0 - 100.0 fL 10/28/2024 8:36 PM EDT [facility] MCH 29.9 27.0 - 33.0 pg 10/28/2024 8:36 PM EDT [facility] MCHC 34.6 32.0 - 36.0 g/dL 10/28/2024 8:36 PM EDT [facility] RDW 18.6(H) 11.0 - 15.0 % 10/28/2024 8:36 PM EDT [facility] Platelets 29(L) 140 - 400 10E3/uL 10/28/2024 8:36 PM EDT [facility] Comment: CNV Specimen checked for clots. None detected. MPV 7.8 7.5 - 11.5 fL 10/28/2024 8:36 PM EDT [facility] Whole Blood 10/28/2024 8:04 PM EDT 10/28/2024 8:14 PM EDT us Carlos Marks MD LAB BLOOD ORDERABLES Final Result Performing Organization Address City/[facility]/ZIP Co de Phone Number [facility] [address] * (ABNORMAL) POC Glucose Monitoring Device (10/28/2024 8:03 PM EDT) POC Glucose Monitoring Device 122(H) 70 - 100 mg/dL 10/28/2024 8:04 PM EDT [facility] Blood 10/28/2024 8:03 PM EDT 10/28/2024 8:04 PM EDT Semaj Mcnair III, MD POINT OF CARE TEST ORDERABLES Final Result [facility] [address] * (ABNORMAL) TEG-Bypass/ECMO/Liver HN (Factor function, Platelet/Fibrin Clot Strength w/Clot Breakdown, Heparinase In All Channels) (10/28/2024 6:39 PM EDT) Pathologist [facility] Citrated Kaolin Reaction Time (TEGECMOLIVER) 9.0 4.6 - 9.1 minutes 10/28/2024 7:50 PM EDT [facility] Citrated Kaolin W/Heparinase Reaction Time (TEGECMOLIVER) 8.3 4.3 - 8.3 minutes 10/28/2024 7:50 PM EDT [facility] Citrated Kaolin Maximum Amplitude (TEGECMOLIVER) 47.6(L) 52.0 - 69.0 mm 10/28/2024 7:50 PM EDT [facility] Citrated Functional Fibrinogen W/Heparinase Maximum Amplitude(TEGEC MOLIVER) 20.4 15.0 - 34.0 mm 10/28/2024 7:50 PM EDT [facility] Citrated Rapid Teg W/Heparinase Maximum Amplitude (TEGECMOLIVER) 44.0(L) 53.0 - 69.0 mm 10/28/2024 7:50 PM EDT [facility] Citrated Kaolin w/Heparinase Percent Lysis (TEGECMOLIVER) 0.0 0.0 - 3.2 % 10/28/2024 7:50 PM EDT [facility] Whole Blood (Citrate) 10/28/2024 6:39 PM EDT 10/28/2024 6:42 PM EDT us Kemar Sahni MD LAB BLOOD ORDERABLES Final Result [facility] [address] [facility] [place] [address], [facility] * (ABNORMAL) POC Glucose Monitoring Device (10/28/2024 5:31 PM EDT) [facility] POC Glucose Monitoring Device 130(H) 70 - 100 mg/dL 10/28/2024 5:31 PM EDT [facility] Blood 10/28/2024 5:31 PM EDT 10/28/2024 5:31 PM EDT us Semaj Mcnair III, MD POINT OF CARE TEST ORDERABLES Final Result [facility] [address] [place] [address], [facility] * Transfuse RBC Transfusion Rate: Per dept routine (10/28/2024 5:23 PM EDT) us Shay Plata MD NURSING TREATMENT OR DERABLES - BLOOD ADMIN Final Result Performing Organization Address City/[facility]/ZIP Co de Phone Number EXTERNAL * Transfuse RBC Transfusion Rate: Per dept routine, 1 Units (10/28/2024 5:23 PM EDT) Shay Plata MD NURSING TREATMENT OR DERABLES - BLOOD ADMIN Final Result Performing Organization Address [facility] Co de Phone Number EXTERNAL * US [...] EXAM: US ABDOMEN LIMITED EXAM: US DUPLEX [id number] COMPLETE INDICATION: Post-op liver transplant DATE: 10/28/2024 [...] retrohepatic inferior vena cava is patent. [place] right kidney is partially visualized. A prominent [...] EXAM: US ABDOMEN LIMITED EXAM: US DUPLEX [id number] COMPLETE INDICATION: Post-op liver transplant DATE: 10/28/2024 [...] retrohepatic inferior vena cava is patent. [place] right kidney is partially visualized. A prominent [...] ORDERABLES Fi nal Result * US Duplex [id number] Comp (10/28/2024 4:23 PM EDT) Anatomical Region [...] EXAM: US ABDOMEN LIMITED EXAM: US DUPLEX [id number] COMPLETE INDICATION: Post-op liver transplant DATE: 10/28/2024 [...] retrohepatic inferior vena cava is patent. [place] right kidney is partially visualized. A prominent [...] EXAM: US ABDOMEN LIMITED EXAM: US DUPLEX [id number] COMPLETE INDICATION: Post-op liver transplant DATE: 10/28/2024 [...] retrohepatic inferior vena cava is patent. [place] right kidney is partially visualized. A prominent [...] 10/28/2024 4:42 PM EDT Shay Plata MD [facility] US ORDERABLES Fi nal Result * (ABNORMAL) CBC, STAT (10/28/2024 2:49 PM EDT) WBC 4.0 3.8 - 10.8 10E3/uL 10/28/2024 3:07 PM EDT [facility] RBC 2.44(L) 4.20 - 5.80 10E6/uL 10/28/2024 3:07 PM EDT [facility] Hemoglobin 7.5(L) 13.2 - 17.1 g/dL 10/28/2024 3:07 PM EDT [facility] Hematocrit 21.4(L) 38.5 - 50.0 % 10/28/2024 3:07 PM EDT [facility] MCV 87.6 80.0 - 100.0 fL 10/28/2024 3:07 PM EDT [facility] MCH 30.6 27.0 - 33.0 pg 10/28/2024 3:07 PM EDT [facility] MCHC 34.9 32.0 - 36.0 g/dL 10/28/2024 3:07 PM EDT [facility] RDW 18.4(H) 11.0 - 15.0 % 10/28/2024 3:07 PM EDT [facility] Platelets 30(L) 140 - 400 10E3/uL 10/28/2024 3:07 PM EDT [facility] Comment: CNV Specimen checked for clots. None detected. MPV 7.7 7.5 - 11.5 fL 10/28/2024 3:07 PM EDT [facility] Whole Blood 10/28/2024 2:49 PM EDT 10/28/2024 2:53 PM EDT us Carlos Marks MD LAB BLOOD ORDERABLES Final Result [facility] [address] * ECG 12 lead (MUSE) (10/28/2024 1:22 PM EDT) 10/28/2024 1:22 PM EDT Narrative MUSE - 10/29/2024 10:34 PM EDT Ventricular Rate: 104 BPM Atrial Rate: 104 BPM P-R Interval: 172 ms QRS Duration: 90 ms QT: 354 ms QTc: 465 ms P Voca: 58 degrees R Voca: -19 degrees T Voca: 38 degrees Diagnosis Line: SINUS TACHYCARDIA ^ OTHERWISE NORMAL ECG ^ ^ Confirmed by JORGE MACIAS ([id number]) on 10/29/2024 10:34:22 PM us Hillary Fernandes PharmD ECG ORDERABLES Final Res ult MUSE * (ABNORMAL) POC Glucose Monitoring Device (10/28/2024 12:54 PM EDT) POC Glucose Monitoring Device 119(H) 70 - 100 mg/dL 10/28/2024 12:55 PM EDT [facility] Blood 10/28/2024 12:5 4 PM EDT 10/28/2024 12:55 PM EDT us Semaj Mcnair III, MD POINT OF CARE TEST ORDERABLES Final Result [facility] [address] * Transfuse RBC Transfusion Rate: Per dept routine (10/28/2024 12:31 PM EDT) us Carlos Marks MD NURSING TREATMENT ORDERABLE S - BLOOD ADMIN Final Result Performing Organization Address City/[facility]/ZIP Co de Phone Number EXTERNAL * Transfuse RBC Transfusion Rate: Per dept routine, 1 Units (10/28/2024 12:31 PM EDT) us Carlos Marks MD NURSING TREATMENT ORDERABLE S - BLOOD ADMIN Final Result Performing Organization Address City/[facility] Co de Phone Number EXTERNAL * Protime-INR, STAT (10/28/2024 11:09 AM EDT) Protime 14.3 12.1 - 15.1 seconds 10/28/2024 11:29 AM EDT [facility] INR 1.1 0.9 - 1.1 10/28/2024 11:29 AM EDT [facility] Comment: RECOMMENDED THERAPEUTIC RANGES USING INR : Stable oral anticoagulant therapy: 2.0 - 3.0 Mechanical prosthetic heart valve: 2.5 - 3.5 Recurrent acute myocardial infarction: 2.5 - 3.5 Plasma 10/28/2024 11:0 9 AM EDT 10/28/2024 11:16 AM EDT us Carlos Marks MD LAB BLOOD ORDERABLES Final Result Performing Organization Address City/[facility]/ZIP Co de Phone Number [facility] [address] * (ABNORMAL) Lactic Acid, STAT (10/28/2024 11:09 AM EDT) Lactate 0.3(L) 0.5 - 2.2 mmol/L 10/28/2024 11:37 AM EDT [facility] Plasma 10/28/2024 11:0 9 AM EDT 10/28/2024 11:15 AM EDT us Carlos Marks MD LAB BLOOD ORDERABLES Final Result [facility] [address] [place] [address] * Magnesium, STAT (10/28/2024 11:09 AM EDT) Pathologist [facility] [place] Magnesium 2.1 1.5 - 2.5 mg/dL 10/28/2024 11:47 AM EDT [facility] Plasma 10/28/2024 11:0 9 AM EDT 10/28/2024 11:16 AM EDT us Carlos Marks MD LAB BLOOD ORDERABLES Final Result [facility] [address] * (ABNORMAL) Renal Function Panel w/EGFR, STAT (10/28/2024 11:09 AM EDT) Sodium 144 133 - 146 mmol/L 10/28/2024 11:47 AM EDT [facility] Potassium 3.4(L) 3.5 - 5.3 mmol/L 10/28/2024 11:47 AM EDT [facility] Chloride 112(H) 98 - 110 mmol/L 10/28/2024 11:47 AM EDT [facility] CO2 22 21 - 33 mmol/L 10/28/2024 11:47 AM EDT [facility] Anion Gap 10 3 - 16 mmol/L 10/28/2024 11:47 AM EDT [facility] BUN 57(H) 7 - 25 mg/dL 10/28/2024 11:47 AM EDT [facility] Creatinine 2.01(H) 0.60 - 1.30 mg/dL 10/28/2024 11:47 AM EDT [facility] Glucose 108(H) 70 - 100 mg/dL 10/28/2024 11:47 AM EDT [facility] Calcium 8.8 8.6 - 10.3 mg/dL 10/28/2024 11:47 AM EDT [facility] Phosphorus 4.0 2.1 - 4.7 mg/dL 10/28/2024 11:47 AM EDT [facility] Albumin 3.3(L) 3.5 - 5.7 g/dL 10/28/2024 11:47 AM EDT [facility] Osmolality, Calculated 314(H) 278 - 305 mOsm/kg 10/28/2024 11:47 AM EDT [facility] EGFR 42 10/28/2024 11:47 AM EDT [facility] Comment:As of 2021, the estimated [...] Marks MD LAB BLOOD ORDERABLES Final Result [facility] [address] [place] [address], [place] * (ABNORMAL) TEG-Bypass/ECMO/Liver HN (Factor function, Platelet/Fibrin Clot Strength w/Clot Breakdown, Heparinase In All Channels) (10/28/2024 11:09 AM EDT) Citrated Kaolin Reaction Time (TEGECMOLIVER) 9.2(H) 4.6 - 9.1 minutes 10/28/2024 12:30 PM EDT [facility] Citrated Kaolin W/Heparinase Reaction Time (TEGECMOLIVER) 9.6(H) 4.3 - 8.3 minutes 10/28/2024 12:30 PM EDT [facility] Citrated Kaolin Maximum Amplitude (TEGECMOLIVER) 51.2(L) 52.0 - 69.0 mm 10/28/2024 12:30 PM EDT [facility] Citrated Functional Fibrinogen W/Heparinase Maximum Amplitude(TEGEC MOLIVER) 21.6 15.0 - 34.0 mm 10/28/2024 12:30 PM EDT [facility] Citrated Rapid Teg W/Heparinase Maximum Amplitude (TEGECMOLIVER) 49.3(L) 53.0 - 69.0 mm 10/28/2024 12:30 PM EDT [facility] Citrated Kaolin w/Heparinase Percent Lysis (TEGECMOLIVER) 0.0 0.0 - 3.2 % 10/28/2024 12:30 PM EDT [facility] Whole Blood (Citrate) 10/28/2024 11:09 AM EDT 10/28/2024 11:14 AM EDT us Kemar Sahni MD LAB BLOOD ORDERABLES Final Result [facility] [address] [place] [address], [facility] * (ABNORMAL) CBC (10/28/2024 10:21 AM EDT) WBC 4.1 3.8 - 10.8 10E3/uL 10/28/2024 10:41 AM EDT [facility] RBC 2.30(L) 4.20 - 5.80 10E6/uL 10/28/2024 10:41 AM EDT [facility] Hemoglobin 7.1(L) 13.2 - 17.1 g/dL 10/28/2024 10:41 AM EDT [facility] Hematocrit 20.4(L) 38.5 - 50.0 % 10/28/2024 10:41 AM EDT [facility] MCV 88.5 80.0 - 100.0 fL 10/28/2024 10:41 AM EDT [facility] MCH 30.7 27.0 - 33.0 pg 10/28/2024 10:41 AM EDT [facility] MCHC 34.7 32.0 - 36.0 g/dL 10/28/2024 10:41 AM EDT [facility] RDW 18.7(H) 11.0 - 15.0 % 10/28/2024 10:41 AM EDT [facility] Platelets 37(L) 140 - 400 10E3/uL 10/28/2024 10:41 AM EDT [facility] Comment: CNV Specimen checked for clots. None detected. MPV 7.6 7.5 - 11.5 fL 10/28/2024 10:41 AM EDT [facility] Whole Blood 10/28/2024 10:2 1 AM EDT 10/28/2024 10:29 AM EDT Carlos Marks MD LAB BLOOD ORDERABLES Final Result [facility] [address] * POC Glucose Monitoring Device (10/28/2024 9:07 AM EDT) [facility] POC Glucose Monitoring Device 97 70 - 100 mg/dL 10/28/2024 9:08 AM EDT [facility] Blood 10/28/2024 9:07 AM EDT 10/28/2024 9:08 AM EDT Semaj Mcnair III, MD POINT OF CARE TEST ORDERABLES Final Result [facility] [address] * (ABNORMAL) Tacrolimus level (10/28/2024 8:20 AM EDT) Tacrolimus (LC-MS) <1.0(L) 3.0 - 15.0 ng/mL 10/28/2024 2:02 PM EDT [facility] Comment:Performed via liquid chromatography tandem mass spectrometry. Detection limit: 1 ng/mL. Individual target concentrations may vary due to target organ and time after transplant. This test has been developed and its performance characteristics determined by [facility] which is certified under [...] EDT 10/28/2024 8:29 AM EDT Priti Geiger [facility] LAB BLOOD ORDERABLES Final Re sult [facility] [address] [place] [address]. [address] * (ABNORMAL) POC Glucose Monitoring Device (10/28/2024 8:10 AM EDT) [facility] POC Glucose Monitoring Device 102(H) 70 - 100 mg/dL 10/28/2024 8:11 AM EDT [facility] Blood 10/28/2024 8:10 AM EDT 10/28/2024 8:11 AM EDT Semaj Mcnair III, MD POINT OF CARE TEST ORDERABLES Final Result [facility] [address] [facility]. [address] * POC Glucose Monitoring Device (10/28/2024 6:17 AM EDT) [facility] POC Glucose Monitoring Device 100 70 - 100 mg/dL 10/28/2024 6:18 AM EDT [facility] Blood 10/28/2024 6:17 AM EDT 10/28/2024 6:18 AM EDT Semaj Mcnair III, MD POINT OF CARE TEST ORDERABLES Final Result [facility] [address] * Prepare Platelets, leukoreduced (10/28/2024 6:15 AM EDT) Product Code H2638D08 HCLL Unit Number [id number] HCLL Dispense Status Presumed Transfused_PT HCLL Blood Expiration Date HCLL Coding System [id number] HCLL Product Code Q6085K64 HCLL Unit Number [id number] HCLL Dispense Status Presumed Transfused_PT HCLL Blood Expiration Date [id number] HCLL Coding System [id number] HCLL us Attending Provider Unknown BLOOD BANK PRODUCT OR DERABLES Final Result HCLL * Prepare Fresh Frozen Plasma (10/28/2024 6:15 AM EDT) Product Code Z3291G58 HCLL Unit Number [id number] HCLL Dispense Status Released from Crossmatch_RE HCLL Blood Expiration Date HCLL Coding System [id number] HCLL Product Code H2138V89 HCLL Unit Number [id number] HCLL Dispense Status Presumed Transfused_PT HCLL Blood Expiration Date HCLL Coding System TIMR961 HCLL Product Code I1974D33 HCLL Unit Number [id number] HCLL Dispense Status Released from Crossmatch_RE HCLL Blood Expiration Date HCLL Coding System [id number] HCLL Product Code W9952W40 HCLL Unit Number [id number] HCLL Dispense Status Presumed Transfused_PT HCLL Blood Expiration Date [id number] HCLL Coding System [id number] HCLL Product Code N2028W55 HCLL Unit Number [id number] HCLL Dispense Status Released from Crossmatch_RE HCLL Blood Expiration Date [id number] HCLL Coding System [id number] HCLL us Attending Provider Unknown BLOOD BANK PRODUCT OR DERABLES Final Result Performing Organization Address City/[facility]/ZIP Co de Phone Number HCLL * Prepare RBC, leukoreduced (10/28/2024 6:15 AM EDT) Product Code S5439E75 HCLL Unit Number [id number] HCLL Dispense Status Released from Crossmatch_RE HCLL Blood Expiration Date [id number] HCLL Coding System [id number] HCLL Product Code D3612Q16 HCLL Unit Number [id number] HCLL Dispense Status Presumed Transfused_PT HCLL Blood Expiration Date 718501691658 HCLL Coding System QJBT467 HCLL Product Code O8240R42 HCLL Unit Number [id number] HCLL Dispense Status Released from Crossmatch_RE HCLL Blood Expiration Date 807348752499 HCLL Coding System [id number] HCLL Product Code M5506V44 HCLL Unit Number [id number] HCLL Dispense Status Presumed Transfused_PT HCLL Blood Expiration Date 791471466357 HCLL Coding System JDNQ625 HCLL Product Code H9959S56 HCLL Unit Number [id number] HCLL Dispense Status Released from Crossmatch_RE HCLL Blood Expiration Date 310021005815 HCLL Coding System [id number] HCLL us Attending Provider Unknown BLOOD BANK PRODUCT OR DERABLES Final Result HCLL * Prepare Platelets, leukoreduced, 1 Units (10/28/2024 6:15 AM EDT) Product Code Q6062I57 HCLL Unit Number [id number] HCLL Dispense Status Presumed Transfused_PT HCLL Blood Expiration Date 919519467041 HCLL Coding System JKSS917 HCLL Blood Bank Product John Pina MD BLOOD BANK PRODUCT ORDERABLES F inal Result Performing Organization Address [facility] Co de Phone Number HCLL * Prepare Cryoprecipitate, 1 Units (10/28/2024 6:15 AM EDT) Product Code U0744G24 HCLL Unit Number [id number] HCLL Dispense Status Presumed Transfused_PT HCLL Blood Expiration Date HCLL Coding System ETBP762 HCLL Product Code D1291T38 HCLL Unit Number [id number] HCLL Dispense Status Presumed Transfused_PT HCLL Blood Expiration Date HCLL Coding System ZBIC228 HCLL Blood Bank Product John Pina MD BLOOD BANK PRODUCT ORDERABLES F inal Result Performing Organization Address [facility] de Phone Number HCLL * Prepare Fresh Frozen Plasma, 1 Units (10/28/2024 6:15 AM EDT) Product Code I4792X62 HCLL Unit Number [id number] HCLL Dispense Status Presumed Transfused_PT HCLL Blood Expiration Date [id number] HCLL Coding System IJYV002 HCLL Blood Bank Product John Pina MD BLOOD BANK PRODUCT ORDERABLES F inal Result Performing Organization Address [facility] de Phone Number HCLL * Prepare Cryoprecipitate, 1 Units (10/28/2024 6:15 AM EDT) Product Code M9205S92 HCLL Unit Number [id number] HCLL Dispense Status Presumed Transfused_PT HCLL Blood Expiration Date HCLL Coding System LJVN784 HCLL Product Code M4806I97 HCLL Unit Number [id number] HCLL Dispense Status Presumed Transfused_PT HCLL Blood Expiration Date HCLL Coding System KVBO707 HCLL Product Code N1975N96 HCLL Unit Number [id number] HCLL Dispense Status Presumed Transfused_PT HCLL Blood Expiration Date HCLL Coding System LLPD388 HCLL Product Code Q8263P41 HCLL Unit Number [id number] HCLL Dispense Status Presumed Transfused_PT HCLL Blood Expiration Date HCLL Coding System BVTN887 HCLL Blood Bank Product John Pina MD BLOOD BANK PRODUCT ORDERABLES F inal Result Performing Organization Address City/[facility]/ZIP Co de Phone Number HCLL * (ABNORMAL) POC Glucose Monitoring Device (10/28/2024 4:55 AM EDT) POC Glucose Monitoring Device 104(H) 70 - 100 mg/dL 10/28/2024 4:57 AM EDT [facility] Blood 10/28/2024 4:55 AM EDT 10/28/2024 4:57 AM EDT Semaj Mcnair III, MD POINT OF CARE TEST ORDERABLES Final Result [facility] [address] * TEG-Bypass/ECMO/Liver HN (Factor function, Platelet/Fibrin Clot Strength w/Clot Breakdown, Heparinase In All Channels) (10/28/2024 4:13 AM EDT) Citrated Kaolin Reaction Time (TEGECMOLIVER) 7.2 4.6 - 9.1 minutes 10/28/2024 5:38 AM EDT [facility] Citrated Kaolin W/Heparinase Reaction Time (TEGECMOLIVER) 7.8 4.3 - 8.3 minutes 10/28/2024 5:38 AM EDT [facility] Citrated Kaolin Maximum Amplitude (TEGECMOLIVER) 53.0 52.0 - 69.0 mm 10/28/2024 5:38 AM EDT [facility] Citrated Functional Fibrinogen W/Heparinase Maximum Amplitude(TEGEC MOLIVER) 21.4 15.0 - 34.0 mm 10/28/2024 5:38 AM EDT [facility] Citrated Rapid Teg W/Heparinase Maximum Amplitude (TEGECMOLIVER) 54.7 53.0 - 69.0 mm 10/28/2024 5:38 AM EDT [facility] Citrated Kaolin w/Heparinase Percent Lysis (TEGECMOLIVER) 0.0 0.0 - 3.2 % 10/28/2024 5:38 AM EDT [facility] Whole Blood (Citrate) 10/28/2024 4:13 AM EDT 10/28/2024 4:28 AM EDT Kemar Sahni MD LAB BLOOD ORDERABLES Final Result [facility] [address] * Protime-INR (10/28/2024 4:13 AM EDT) Protime 14.6 12.1 - 15.1 seconds 10/28/2024 4:53 AM EDT [facility] INR 1.1 0.9 - 1.1 10/28/2024 4:53 AM EDT [facility] Comment: RECOMMENDED THERAPEUTIC RANGES USING INR : Stable oral anticoagulant therapy: 2.0 - 3.0 Mechanical prosthetic heart valve: 2.5 - 3.5 Recurrent acute myocardial infarction: 2.5 - 3.5 Plasma 10/28/2024 4:13 AM EDT 10/28/2024 4:41 AM EDT Kemar Sahni MD LAB BLOOD ORDERABLES Final Result [facility] [address] [facility] [place]. [address] * Magnesium (10/28/2024 4:13 AM EDT) Magnesium 2.2 1.5 - 2.5 mg/dL 10/28/2024 5:15 AM EDT [facility] Plasma 10/28/2024 4:13 AM EDT 10/28/2024 4:41 AM EDT us Kemar Sahni MD LAB BLOOD ORDERABLES Final Result Performing Organization Address City/[facility]/ZIP Co de Phone Number [facility] [address] * (ABNORMAL) Hepatic Function Panel (10/28/2024 4:13 AM EDT) Total Bilirubin 2.3(H) 0.0 - 1.5 mg/dL 10/28/2024 5:15 AM EDT [facility] Bilirubin, Direct 1.67(H) 0.00 - 0.40 mg/dL 10/28/2024 5:15 AM EDT [facility] AST 44(H) 13 - 39 U/L 10/28/2024 5:15 AM EDT [facility] ALT 101(H) 7 - 52 U/L 10/28/2024 5:15 AM EDT [facility] Alkaline Phosphatase 26(L) 36 - 125 U/L 10/28/2024 5:15 AM EDT [facility] Total Protein 4.5(L) 6.4 - 8.9 g/dL 10/28/2024 5:15 AM EDT [facility] Albumin 3.1(L) 3.5 - 5.7 g/dL 10/28/2024 5:15 AM EDT [facility] Bilirubin, Indirect 0.63 0.00 - 1.10 mg/dL 10/28/2024 5:15 AM EDT [facility] Plasma 10/28/2024 4:13 AM EDT 10/28/2024 4:41 AM EDT us Kemar Sahni MD LAB BLOOD ORDERABLES Final Result [facility] [address] [place] [address], [facility] * (ABNORMAL) Renal Function Panel w/EGFR (10/28/2024 4:13 AM EDT) Sodium 142 133 - 146 mmol/L 10/28/2024 5:15 AM EDT [facility] Potassium 3.5 3.5 - 5.3 mmol/L 10/28/2024 5:15 AM EDT [facility] Chloride 111(H) 98 - 110 mmol/L 10/28/2024 5:15 AM EDT [facility] CO2 22 21 - 33 mmol/L 10/28/2024 5:15 AM EDT [facility] Anion Gap 9 3 - 16 mmol/L 10/28/2024 5:15 AM EDT [facility] BUN 58(H) 7 - 25 mg/dL 10/28/2024 5:15 AM EDT [facility] Creatinine 2.24(H) 0.60 - 1.30 mg/dL 10/28/2024 5:15 AM EDT [facility] Glucose 103(H) 70 - 100 mg/dL 10/28/2024 5:15 AM EDT [facility] Calcium 9.1 8.6 - 10.3 mg/dL 10/28/2024 5:15 AM EDT [facility] Phosphorus 4.8(H) 2.1 - 4.7 mg/dL 10/28/2024 5:15 AM EDT [facility] Albumin 3.1(L) 3.5 - 5.7 g/dL 10/28/2024 5:15 AM EDT [facility] Osmolality, Calculated 310(H) 278 - 305 mOsm/kg 10/28/2024 5:15 AM EDT [facility] EGFR 37 10/28/2024 5:15 AM EDT [facility] Comment:As of 2021, the estimated [...] MD LAB BLOOD ORDERABLES Final Result [facility] [address] [place] [address], [facility] * (ABNORMAL) CBC (10/28/2024 4:13 AM EDT) WBC 4.5 3.8 - 10.8 10E3/uL 10/28/2024 5:09 AM EDT [facility] RBC 2.39(L) 4.20 - 5.80 10E6/uL 10/28/2024 5:09 AM EDT [facility] Hemoglobin 7.3(L) 13.2 - 17.1 g/dL 10/28/2024 5:09 AM EDT [facility] Hematocrit 21.0(L) 38.5 - 50.0 % 10/28/2024 5:09 AM EDT [facility] MCV 87.8 80.0 - 100.0 fL 10/28/2024 5:09 AM EDT [facility] MCH 30.5 27.0 - 33.0 pg 10/28/2024 5:09 AM EDT [facility] MCHC 34.7 32.0 - 36.0 g/dL 10/28/2024 5:09 AM EDT [facility] RDW 18.7(H) 11.0 - 15.0 % 10/28/2024 5:09 AM EDT [facility] Platelets 38(L) 140 - 400 10E3/uL 10/28/2024 5:09 AM EDT [facility] Comment: CNV Specimen checked for clots. None detected. MPV 7.6 7.5 - 11.5 fL 10/28/2024 5:09 AM EDT [facility] Whole Blood 10/28/2024 4:13 AM EDT 10/28/2024 4:41 AM EDT Kemar Sahni MD LAB BLOOD ORDERABLES Final Result [facility] [address] [facility]. [address] * (ABNORMAL) POC Glucose Monitoring Device (10/28/2024 4:04 AM EDT) POC Glucose Monitoring Device 103(H) 70 - 100 mg/dL 10/28/2024 4:05 AM EDT [facility] Blood 10/28/2024 4:04 AM EDT 10/28/2024 4:05 AM EDT Semaj Mcnair III, MD POINT OF CARE TEST ORDERABLES Final Result Performing Organization Address [facility] Co de Phone Number [facility] [address] [facility]. [address] * (ABNORMAL) POC Glucose Monitoring Device (10/28/2024 3:00 AM EDT) POC Glucose Monitoring Device 106(H) 70 - 100 mg/dL 10/28/2024 3:01 AM EDT [facility] Blood 10/28/2024 3:00 AM EDT 10/28/2024 3:01 AM EDT Semaj Mcnair III, MD POINT OF CARE TEST ORDERABLES Final Result Performing Organization Address City/[facility]/ZIP Co de Phone Number [facility] [address] [facility]. [address] * (ABNORMAL) POC Glucose Monitoring Device (10/28/2024 2:32 AM EDT) POC Glucose Monitoring Device 109(H) 70 - 100 mg/dL 10/28/2024 2:33 AM EDT [facility] Blood 10/28/2024 2:32 AM EDT 10/28/2024 2:33 AM EDT us Semaj Mcnair III, MD POINT OF CARE TEST ORDERABLES Final Result Performing Organization Address City/[facility]/ZIP Co de Phone Number [facility] [address] [facility]. [address] * (ABNORMAL) POC Glucose Monitoring Device (10/28/2024 2:14 AM EDT) POC Glucose Monitoring Device 115(H) 70 - 100 mg/dL 10/28/2024 2:15 AM EDT [facility] Blood 10/28/2024 2:14 AM EDT 10/28/2024 2:15 AM EDT us Semaj Mcnair III, MD POINT OF CARE TEST ORDERABLES Final Result Performing Organization Address [facility] Co de Phone Number [facility] [address] [place] [address]. [address] * (ABNORMAL) POC Glucose Monitoring Device (10/28/2024 2:03 AM EDT) POC Glucose Monitoring Device 101(H) 70 - 100 mg/dL 10/28/2024 2:04 AM EDT [facility] Blood 10/28/2024 2:03 AM EDT 10/28/2024 2:04 AM EDT us Semaj Mcnair III, MD POINT OF CARE TEST ORDERABLES Final Result Performing Organization Address City/[facility] Co de Phone Number [facility] [address] * Transfuse RBC Transfusion Rate: Per [...] All Channels) (10/28/2024 12:05 AM EDT) [facility] Citrated Kaolin Reaction Time (TEGECMOLIVER) 7.5 4.6 - 9.1 minutes 10/28/2024 1:22 AM EDT [facility] Citrated Kaolin W/Heparinase Reaction Time (TEGECMOLIVER) 7.7 4.3 - 8.3 minutes 10/28/2024 1:22 AM EDT [facility] Citrated Kaolin Maximum Amplitude (TEGECMOLIVER) 54.4 52.0 - 69.0 mm 10/28/2024 1:22 AM EDT [facility] Citrated Functional Fibrinogen W/Heparinase Maximum Amplitude(TEGEC MOLIVER) 20.4 15.0 - 34.0 mm 10/28/2024 1:22 AM EDT [facility] Citrated Rapid Teg W/Heparinase Maximum Amplitude (TEGECMOLIVER) 51.0(L) 53.0 - 69.0 mm 10/28/2024 1:22 AM EDT [facility] Citrated Kaolin w/Heparinase Percent Lysis (TEGECMOLIVER) 0.0 0.0 - 3.2 % 10/28/2024 1:22 AM EDT [facility] Whole Blood (Citrate) 10/28/2024 12:05 AM EDT 10/28/2024 12:09 AM EDT Kemar Sahni MD LAB BLOOD ORDERABLES Final Result [facility] [address] * Magnesium (10/28/2024 12:05 AM EDT) Magnesium 2.2 1.5 - 2.5 mg/dL 10/28/2024 1:59 AM EDT [facility] Plasma 10/28/2024 12:0 5 AM EDT 10/28/2024 12:11 AM EDT Kemar Sahni MD LAB BLOOD ORDERABLES Final Result [facility] [address] * (ABNORMAL) Renal Function Panel w/EGFR (10/28/2024 12:05 AM EDT) Sodium 144 133 - 146 mmol/L 10/28/2024 1:59 AM EDT [facility] Potassium 3.4(L) 3.5 - 5.3 mmol/L 10/28/2024 1:59 AM EDT [facility] Chloride 112(H) 98 - 110 mmol/L 10/28/2024 1:59 AM EDT [facility] CO2 19(L) 21 - 33 mmol/L 10/28/2024 1:59 AM EDT [facility] Anion Gap 13 3 - 16 mmol/L 10/28/2024 1:59 AM EDT [facility] BUN 59(H) 7 - 25 mg/dL 10/28/2024 1:59 AM EDT [facility] Creatinine 2.42(H) 0.60 - 1.30 mg/dL 10/28/2024 1:59 AM EDT [facility] Glucose 118(H) 70 - 100 mg/dL 10/28/2024 1:59 AM EDT [facility] Calcium 9.0 8.6 - 10.3 mg/dL 10/28/2024 1:59 AM EDT [facility] Phosphorus 5.3(H) 2.1 - 4.7 mg/dL 10/28/2024 1:59 AM EDT [facility] Albumin 3.1(L) 3.5 - 5.7 g/dL 10/28/2024 1:59 AM EDT [facility] Osmolality, Calculated 316(H) 278 - 305 mOsm/kg 10/28/2024 1:59 AM EDT [facility] EGFR 34 10/28/2024 1:59 AM EDT [facility] Comment:As of 2021, the estimated [...] MD LAB BLOOD ORDERABLES Final Result [facility] [address] * (ABNORMAL) Differential (10/28/2024 12:05 AM EDT) Neutrophils Relative 88.6(H) 40.0 - 80.0 % 10/28/2024 12:41 AM EDT [facility] Lymphocytes Relative 2.5(L) 15.0 - 45.0 % 10/28/2024 12:41 AM EDT [facility] Monocytes Relative 6.1 0.0 - 12.0 % 10/28/2024 12:41 AM EDT [facility] Eosinophils Relative 2.4 0.0 - 8.0 % 10/28/2024 12:41 AM EDT [facility] Basophils Relative 0.4 0.0 - 1.0 % 10/28/2024 12:41 AM EDT [facility] nRBC 0 0 - 0 /100 WBC 10/28/2024 12:41 AM EDT [facility] Neutrophils Absolute 4,341 1,520 - 8,640 /uL 10/28/2024 12:41 AM EDT [facility] Lymphocytes Absolute 123(L) 570 - 4,860 /uL 10/28/2024 12:41 AM EDT [facility] Monocytes Absolute 299 0 - 1,296 /uL 10/28/2024 12:41 AM EDT [facility] Eosinophils Absolute 118 0 - 864 /uL 10/28/2024 12:41 AM EDT [facility] Basophils Absolute 20 0 - 108 /uL 10/28/2024 12:41 AM EDT [facility] Whole Blood 10/28/2024 12:0 5 AM EDT 10/28/2024 12:11 AM EDT Kemar Sahni MD LAB BLOOD ORDERABLES Final Result Performing Organization Address City/State/[facility] Co de Phone Number [facility] [address] * (ABNORMAL) CBC (10/28/2024 12:05 AM EDT) WBC 4.9 3.8 - 10.8 10E3/uL 10/28/2024 12:41 AM EDT [facility] RBC 2.18(L) 4.20 - 5.80 10E6/uL 10/28/2024 12:41 AM EDT [facility] Hemoglobin 6.7(L) 13.2 - 17.1 g/dL 10/28/2024 12:41 AM EDT [facility] Hematocrit 19.2(L) 38.5 - 50.0 % 10/28/2024 12:41 AM EDT [facility] MCV 87.8 80.0 - 100.0 fL 10/28/2024 12:41 AM EDT [facility] MCH 30.6 27.0 - 33.0 pg 10/28/2024 12:41 AM EDT [facility] MCHC 34.8 32.0 - 36.0 g/dL 10/28/2024 12:41 AM EDT [facility] RDW 19.6(H) 11.0 - 15.0 % 10/28/2024 12:41 AM EDT [facility] Platelets 45(L) 140 - 400 10E3/uL 10/28/2024 12:41 AM EDT [facility] Comment: CNV Specimen checked for clots. None detected. MPV 7.8 7.5 - 11.5 fL 10/28/2024 12:41 AM EDT [facility] Whole Blood 10/28/2024 12:0 5 AM EDT 10/28/2024 12:11 AM EDT Kemar Sahni MD LAB BLOOD ORDERABLES Final Result Performing Organization Address City/[facility]/ZIP Co de Phone Number [facility] [address] * (ABNORMAL) POC Glucose Monitoring Device (10/28/2024 12:03 AM EDT) POC Glucose Monitoring Device 122(H) 70 - 100 mg/dL 10/28/2024 12:04 AM EDT [facility] Blood 10/28/2024 12:0 3 AM EDT 10/28/2024 12:04 AM EDT Semaj Mcnair III, MD POINT OF CARE TEST ORDERABLES Final Result Performing Organization Address City/[facility]/ZIP Co de Phone Number [facility] [address] [facility] * (ABNORMAL) POC Glucose Monitoring Device (10/27/2024 10:03 PM EDT) POC Glucose Monitoring Device 127(H) 70 - 100 mg/dL 10/27/2024 10:03 PM EDT [facility] Blood 10/27/2024 10:0 3 PM EDT 10/27/2024 10:03 PM EDT us Semaj Mcnair III, MD POINT OF CARE TEST ORDERABLES Final Result [facility] [address] [facility] [place]. [address] * (ABNORMAL) POC Glucose Monitoring Device (10/27/2024 8:06 PM EDT) POC Glucose Monitoring Device 128(H) 70 - 100 mg/dL 10/27/2024 8:45 PM EDT [facility] Blood 10/27/2024 8:06 PM EDT 10/27/2024 8:45 PM EDT us Semaj Mcnair III, MD POINT OF CARE TEST ORDERABLES Final Result Performing Organization Address [facility]/ZIP Co de Phone Number [facility] [address] [facility] [place]. [address] * (ABNORMAL) POC Glucose Monitoring Device (10/27/2024 6:00 PM EDT) POC Glucose Monitoring Device 128(H) 70 - 100 mg/dL 10/27/2024 6:00 PM EDT [facility] Blood 10/27/2024 6:00 PM EDT 10/27/2024 6:00 PM EDT Semaj Mcnair III, MD POINT OF CARE TEST ORDERABLES Final Result Performing Organization Address City/[facility]/ZIP Co de Phone Number [facility] [address] [facility] [place]. [address] * Lactic Acid, STAT (10/27/2024 5:41 PM EDT) Lactate 0.5 0.5 - 2.2 mmol/L 10/27/2024 6:28 PM EDT [facility] Plasma 10/27/2024 5:41 PM EDT 10/27/2024 5:49 PM EDT Narrative [facility] - 10/27/2024 6:28 PM EDT Redraw John Moreno MD LAB BLOOD ORDERABLES Final R esult [facility] [address] [facility] [place] [address], [facility] * (ABNORMAL) Hepatic Function Panel, STAT (10/27/2024 5:13 PM EDT) Total Bilirubin 1.7(H) 0.0 - 1.5 mg/dL 10/27/2024 5:50 PM EDT [facility] Bilirubin, Direct 1.17(H) 0.00 - 0.40 mg/dL 10/27/2024 5:50 PM EDT [facility] AST 60(H) 13 - 39 U/L 10/27/2024 5:50 PM EDT [facility] ALT 134(H) 7 - 52 U/L 10/27/2024 5:50 PM EDT [facility] Alkaline Phosphatase 27(L) 36 - 125 U/L 10/27/2024 5:50 PM EDT [facility] Total Protein 4.1(L) 6.4 - 8.9 g/dL 10/27/2024 5:50 PM EDT [facility] Albumin 2.9(L) 3.5 - 5.7 g/dL 10/27/2024 5:50 PM EDT [facility] Bilirubin, Indirect 0.53 0.00 - 1.10 mg/dL 10/27/2024 5:50 PM EDT [facility] Plasma 10/27/2024 5:13 PM EDT 10/27/2024 5:23 PM EDT us Shay Plata MD LAB BLOOD ORDERABLES Final Result [facility] [address] [facility] [place] [address], [facility] * (ABNORMAL) TEG-Bypass/ECMO/Liver HN (Factor function, Platelet/Fibrin Clot Strength w/Clot Breakdown, Heparinase In All Channels) (10/27/2024 5:13 PM EDT) Citrated Kaolin Reaction Time (TEGECMOLIVER) 8.0 4.6 - 9.1 minutes 10/27/2024 6:56 PM EDT [facility] Citrated Kaolin W/Heparinase Reaction Time (TEGECMOLIVER) 6.8 4.3 - 8.3 minutes 10/27/2024 6:56 PM EDT [facility] Citrated Kaolin Maximum Amplitude (TEGECMOLIVER) 55.4 52.0 - 69.0 mm 10/27/2024 6:56 PM EDT [facility] Citrated Functional Fibrinogen W/Heparinase Maximum Amplitude(TEGEC MOLIVER) 22.9 15.0 - 34.0 mm 10/27/2024 6:56 PM EDT [facility] Citrated Rapid Teg W/Heparinase Maximum Amplitude (TEGECMOLIVER) 50.8(L) 53.0 - 69.0 mm 10/27/2024 6:56 PM EDT [facility] Citrated Kaolin w/Heparinase Percent Lysis (TEGECMOLIVER) 0.1 0.0 - 3.2 % 10/27/2024 6:56 PM EDT [facility] Whole Blood (Citrate) 10/27/2024 5:13 PM EDT 10/27/2024 5:20 PM EDT us Kemar Sahni MD LAB BLOOD ORDERABLES Final Result [facility] [address] [place] [address], [facility] * (ABNORMAL) Protime-INR (10/27/2024 5:13 PM EDT) Protime 15.2(H) 12.1 - 15.1 seconds 10/27/2024 5:40 PM EDT [facility] INR 1.1 0.9 - 1.1 10/27/2024 5:40 PM EDT [facility] Comment: RECOMMENDED THERAPEUTIC RANGES USING INR : Stable oral anticoagulant therapy: 2.0 - 3.0 Mechanical prosthetic heart valve: 2.5 - 3.5 Recurrent acute myocardial infarction: 2.5 - 3.5 Plasma 10/27/2024 5:13 PM EDT 10/27/2024 5:23 PM EDT Kemar Sahni MD LAB BLOOD ORDERABLES Final Result [facility] [address] [facility] [place]. [address] * Magnesium (10/27/2024 5:13 PM EDT) Magnesium 2.4 1.5 - 2.5 mg/dL 10/27/2024 5:53 PM EDT [facility] Plasma 10/27/2024 5:13 PM EDT 10/27/2024 5:23 PM EDT Kemar Sahni MD LAB BLOOD ORDERABLES Final Result [facility] [address] [facility] [place]. [address] * (ABNORMAL) Hepatic Function Panel (10/27/2024 5:13 PM EDT) Total Bilirubin 1.7(H) 0.0 - 1.5 mg/dL 10/27/2024 5:53 PM EDT [facility] Bilirubin, Direct 1.10(H) 0.00 - 0.40 mg/dL 10/27/2024 5:53 PM EDT [facility] AST 62(H) 13 - 39 U/L 10/27/2024 5:53 PM EDT [facility] ALT 134(H) 7 - 52 U/L 10/27/2024 5:53 PM EDT [facility] Alkaline Phosphatase 27(L) 36 - 125 U/L 10/27/2024 5:53 PM EDT [facility] Total Protein 4.1(L) 6.4 - 8.9 g/dL 10/27/2024 5:53 PM EDT [facility] Albumin 2.9(L) 3.5 - 5.7 g/dL 10/27/2024 5:53 PM EDT [facility] Bilirubin, Indirect 0.60 0.00 - 1.10 mg/dL 10/27/2024 5:53 PM EDT [facility] Plasma 10/27/2024 5:13 PM EDT 10/27/2024 5:23 PM EDT Kemar Sahni MD LAB BLOOD ORDERABLES Final Result [facility] [address] [place] [id number], [facility] * (ABNORMAL) Renal Function Panel w/EGFR (10/27/2024 5:13 PM EDT) Sodium 142 133 - 146 mmol/L 10/27/2024 5:53 PM EDT [facility] Potassium 3.4(L) 3.5 - 5.3 mmol/L 10/27/2024 5:53 PM EDT [facility] Chloride 109 98 - 110 mmol/L 10/27/2024 5:53 PM EDT [facility] CO2 22 21 - 33 mmol/L 10/27/2024 5:53 PM EDT [facility] Anion Gap 11 3 - 16 mmol/L 10/27/2024 5:53 PM EDT [facility] BUN 61(H) 7 - 25 mg/dL 10/27/2024 5:53 PM EDT [facility] Creatinine 2.42(H) 0.60 - 1.30 mg/dL 10/27/2024 5:53 PM EDT [facility] Glucose 125(H) 70 - 100 mg/dL 10/27/2024 5:53 PM EDT [facility] Calcium 8.8 8.6 - 10.3 mg/dL 10/27/2024 5:53 PM EDT [facility] Phosphorus 5.7(H) 2.1 - 4.7 mg/dL 10/27/2024 5:53 PM EDT [facility] Albumin 2.9(L) 3.5 - 5.7 g/dL 10/27/2024 5:53 PM EDT [facility] Osmolality, Calculated 313(H) 278 - 305 mOsm/kg 10/27/2024 5:53 PM EDT [facility] EGFR 34 10/27/2024 5:53 PM EDT [facility] Comment:As of 2021, the estimated [...] MD LAB BLOOD ORDERABLES Final Result [facility] [address] * (ABNORMAL) CBC (10/27/2024 5:13 PM EDT) WBC 4.9 3.8 - 10.8 10E3/uL 10/27/2024 6:14 PM EDT [facility] RBC 2.44(L) 4.20 - 5.80 10E6/uL 10/27/2024 6:14 PM EDT [facility] Hemoglobin 7.4(L) 13.2 - 17.1 g/dL 10/27/2024 6:14 PM EDT [facility] Hematocrit 21.4(L) 38.5 - 50.0 % 10/27/2024 6:14 PM EDT [facility] MCV 87.6 80.0 - 100.0 fL 10/27/2024 6:14 PM EDT [facility] MCH 30.3 27.0 - 33.0 pg 10/27/2024 6:14 PM EDT [facility] MCHC 34.6 32.0 - 36.0 g/dL 10/27/2024 6:14 PM EDT [facility] RDW 19.6(H) 11.0 - 15.0 % 10/27/2024 6:14 PM EDT [facility] Platelets 47(L) 140 - 400 10E3/uL 10/27/2024 6:14 PM EDT [facility] Comment: CNV Specimen checked for clots. None detected. MPV 8.1 7.5 - 11.5 fL 10/27/2024 6:14 PM EDT [facility] Whole Blood 10/27/2024 5:13 PM EDT 10/27/2024 5:23 PM EDT Kemar Sahni MD LAB BLOOD ORDERABLES Final Result [facility] [address] [facility] * (ABNORMAL) POC Glucose Monitoring Device (10/27/2024 3:57 PM EDT) [facility] POC Glucose Monitoring Device 131(H) 70 - 100 mg/dL 10/27/2024 3:58 PM EDT [facility] Blood 10/27/2024 3:57 PM EDT 10/27/2024 3:58 PM EDT Semaj Mcnair III, MD POINT OF CARE TEST ORDERABLES Final Result Performing Organization Address City/[facility]/ZIP Co de Phone Number [facility] [address] * (ABNORMAL) CBC, STAT (10/27/2024 2:40 PM EDT) WBC 5.8 3.8 - 10.8 10E3/uL 10/27/2024 2:54 PM EDT [facility] RBC 2.43(L) 4.20 - 5.80 10E6/uL 10/27/2024 2:54 PM EDT [facility] Hemoglobin 7.5(L) 13.2 - 17.1 g/dL 10/27/2024 2:54 PM EDT [facility] Hematocrit 21.5(L) 38.5 - 50.0 % 10/27/2024 2:54 PM EDT [facility] MCV 88.2 80.0 - 100.0 fL 10/27/2024 2:54 PM EDT [facility] MCH 30.7 27.0 - 33.0 pg 10/27/2024 2:54 PM EDT [facility] MCHC 34.8 32.0 - 36.0 g/dL 10/27/2024 2:54 PM EDT [facility] RDW 19.1(H) 11.0 - 15.0 % 10/27/2024 2:54 PM EDT [facility] Platelets 50(L) 140 - 400 10E3/uL 10/27/2024 2:54 PM EDT [facility] MPV 7.5 7.5 - 11.5 fL 10/27/2024 2:54 PM EDT [facility] Whole Blood 10/27/2024 2:40 PM EDT 10/27/2024 2:44 PM EDT us John Moreno MD LAB BLOOD ORDERABLES Final R esult [facility] [address] [place] [address], [facility] * (ABNORMAL) Blood Gas, Arterial, STAT (10/27/2024 2:40 PM EDT) O2 Sat, Arterial 98 10/27/2024 2:46 PM EDT [facility] FIO2 RA 10/27/2024 2:46 PM EDT [facility] pH, Arterial 7.37 7.35 - 7.45 10/27/2024 2:46 PM EDT [facility] pCO2, Arterial 35 35 - 45 mm Hg 10/27/2024 2:46 PM EDT [facility] pO2, Arterial 92 80 - 100 mm Hg 10/27/2024 2:46 PM EDT [facility] HCO3, Arterial 21(L) 22 - 26 mmol/L 10/27/2024 2:46 PM EDT [facility] CO2 Content,Arteri al 21(L) 23 - 27 mmol/L 10/27/2024 2:46 PM EDT [facility] Base Excess, Arterial -4.6(L) -2.0 - 3.0 mmol/L 10/27/2024 2:46 PM EDT [facility] %HBO2, Arterial 95.4 95.0 - 98.0 % 10/27/2024 2:46 PM EDT [facility] Carboxyhemoglo bin, Arterial 1.6 % 10/27/2024 2:46 PM EDT [facility] Comment: CARBOXYHEMOGLOBIN (CO) REFERENCE RANGES: Non-Smokers: <2 % Smokers: <8 % TOXIC: >20 % Methemoglobin, Arterial 1.0 0.0 - 1.5 % 10/27/2024 2:46 PM EDT [facility] Reduced hemoglobin, Arterial 2.1 0.0 - 5.0 % 10/27/2024 2:46 PM EDT [facility] Blood, Arterial 10/27/2024 2 :40 PM EDT 10/27/2024 2:44 PM EDT Narrative [facility] - 10/27/2024 2:46 PM EDT Post extubation John Moreno MD LAB BLOOD ORDERABLES Final R esult [facility] [address] * (ABNORMAL) POC Glucose Monitoring Device (10/27/2024 2:06 PM EDT) POC Glucose Monitoring Device 134(H) 70 - 100 mg/dL 10/27/2024 2:06 PM EDT [facility] Blood 10/27/2024 2:06 PM EDT 10/27/2024 2:06 PM EDT Semaj Mcnair III, MD POINT OF CARE TEST ORDERABLES Final Result [facility] [address] * (ABNORMAL) Blood gas, arterial (10/27/2024 12:35 PM EDT) O2 Sat, Arterial 99 10/27/2024 12:46 PM EDT [facility] FIO2 SBT 30% 10/27/2024 12:46 PM EDT [facility] pH, Arterial 7.35 7.35 - 7.45 10/27/2024 12:46 PM EDT [facility] pCO2, Arterial 37 35 - 45 mm Hg 10/27/2024 12:46 PM EDT [facility] pO2, Arterial 182(H) 80 - 100 mm Hg 10/27/2024 12:46 PM EDT [facility] HCO3, Arterial 21(L) 22 - 26 mmol/L 10/27/2024 12:46 PM EDT [facility] CO2 Content,Arteri al 22(L) 23 - 27 mmol/L 10/27/2024 12:46 PM EDT [facility] Base Excess, Arterial -4.8(L) -2.0 - 3.0 mmol/L 10/27/2024 12:46 PM EDT [facility] %HBO2, Arterial 96.3 95.0 - 98.0 % 10/27/2024 12:46 PM EDT [facility] Carboxyhemoglo bin, Arterial 1.7 % 10/27/2024 12:46 PM EDT [facility] Comment: CARBOXYHEMOGLOBIN (CO) REFERENCE RANGES: Non-Smokers: <2 % Smokers: <8 % TOXIC: >20 % Methemoglobin, Arterial 1.4 0.0 - 1.5 % 10/27/2024 12:46 PM EDT [facility] Reduced hemoglobin, Arterial 0.6 0.0 - 5.0 % 10/27/2024 12:46 PM EDT [facility] Blood, Arterial 10/27/2024 1 2:35 PM EDT 10/27/2024 12:42 PM EDT Narrative [facility] - 10/27/2024 12:46 PM EDT Please obtain post SBT us Shay Sifuentes MD LAB BLOOD ORDERABLES Final Resu lt [facility] [address] [place] [address], [facility] * (ABNORMAL) TEG-Bypass/ECMO/Liver HN (Factor function, Platelet/Fibrin Clot Strength w/Clot Breakdown, Heparinase In All Channels) (10/27/2024 12:07 PM EDT) Citrated Kaolin Reaction Time (TEGECMOLIVER) 7.9 4.6 - 9.1 minutes 10/27/2024 1:24 PM EDT [facility] Citrated Kaolin W/Heparinase Reaction Time (TEGECMOLIVER) 8.3 4.3 - 8.3 minutes 10/27/2024 1:24 PM EDT [facility] Citrated Kaolin Maximum Amplitude (TEGECMOLIVER) 52.0 52.0 - 69.0 mm 10/27/2024 1:24 PM EDT [facility] Citrated Functional Fibrinogen W/Heparinase Maximum Amplitude(TEGEC MOLIVER) 20.1 15.0 - 34.0 mm 10/27/2024 1:24 PM EDT [facility] Citrated Rapid Teg W/Heparinase Maximum Amplitude (TEGECMOLIVER) 49.4(L) 53.0 - 69.0 mm 10/27/2024 1:24 PM EDT [facility] Citrated Kaolin w/Heparinase Percent Lysis (TEGECMOLIVER) 0.0 0.0 - 3.2 % 10/27/2024 1:24 PM EDT [facility] Whole Blood (Citrate) 10/27/2024 12:07 PM EDT 10/27/2024 12:09 PM EDT Kemar Sahni MD LAB BLOOD ORDERABLES Final Result Performing Organization Address City/State/[facility] Co de Phone Number [facility] [address] * (ABNORMAL) POC Glucose Monitoring Device (10/27/2024 12:01 PM EDT) POC Glucose Monitoring Device 121(H) 70 - 100 mg/dL 10/27/2024 12:02 PM EDT [facility] Blood 10/27/2024 12:0 1 PM EDT 10/27/2024 12:01 PM EDT Semaj Mcnair III, MD POINT OF CARE TEST ORDERABLES Final Result Performing Organization Address [facility] Co de Phone Number [facility] [address] * (ABNORMAL) POC Glucose Monitoring Device (10/27/2024 10:59 AM EDT) POC Glucose Monitoring Device 126(H) 70 - 100 mg/dL 10/27/2024 11:10 AM EDT [facility] Blood 10/27/2024 10:5 9 AM EDT 10/27/2024 11:10 AM EDT us Semaj Mcnair III, MD POINT OF CARE TEST ORDERABLES Final Result Performing Organization Address [facility] de Phone Number [facility] [address] * ECG 12 lead (MUSE) (10/27/2024 10:17 AM EDT) 10/27/2024 10:1 7 AM EDT Narrative MUSE - 10/27/2024 2:51 PM EDT Ventricular Rate: 91 BPM Atrial Rate: 91 BPM P-R Interval: 168 ms QRS Duration: 90 ms QT: 274 ms QTc: 337 ms P Voca: 60 degrees R Voca: -30 degrees T Voca: -15 degrees Diagnosis Line: NORMAL SINUS RHYTHM ^ LEFT AXIS DEVIATION, LEFT ANTERIOR HEMIBLOCK ^ NONSPECIFIC T WAVE CHANGE ^ ABNORMAL ECG ^ ^ Confirmed by MD ROLLY, [facility] ([id number]) on 10/27/2024 2:51:52 PM us Shay Sifuentes MD ECG ORDERABLES Final Result Performing Organization Address [facility] Co de Phone Number MUSE * (ABNORMAL) POC Glucose Monitoring Device (10/27/2024 10:00 AM EDT) POC Glucose Monitoring Device 121(H) 70 - 100 mg/dL 10/27/2024 10:01 AM EDT [facility] Blood 10/27/2024 10:0 0 AM EDT 10/27/2024 10:01 AM EDT Semaj Mcnair III, MD POINT OF CARE TEST ORDERABLES Final Result [facility] [address] [place] [address], [facility] * US Renal Transplant [...] US ORDERABLES Final Result * US Duplex [id number] Comp (10/27/2024 9:51 AM EDT) Anatomical Region [...] EXAM: US ABDOMEN LIMITED EXAM: US DUPLEX [id number] COMPLETE INDICATION: Post-op liver transplant COMPARISON: None [...] absent.. Pancreas: Obscured by overlying bowel gas. [place] right kidney: 12.5 cm in length. Normal [...] EXAM: US ABDOMEN LIMITED EXAM: US DUPLEX [id number] COMPLETE INDICATION: Post-op liver transplant COMPARISON: None [...] absent.. Pancreas: Obscured by overlying bowel gas. [place] right kidney: 12.5 cm in length. Normal [...] EXAM: US ABDOMEN LIMITED EXAM: US DUPLEX [id number] COMPLETE INDICATION: Post-op liver transplant COMPARISON: None [...] absent.. Pancreas: Obscured by overlying bowel gas. [place] right kidney: 12.5 cm in length. Normal [...] EXAM: US ABDOMEN LIMITED EXAM: US DUPLEX [id number] COMPLETE INDICATION: Post-op liver transplant COMPARISON: None [...] absent.. Pancreas: Obscured by overlying bowel gas. [place] right kidney: 12.5 cm in length. Normal [...] Glucose Monitoring Device (10/27/2024 9:05 AM EDT) [facility] POC Glucose Monitoring Device 118(H) 70 - 100 mg/dL 10/27/2024 9:06 AM EDT [facility] Blood 10/27/2024 9:05 AM EDT 10/27/2024 9:06 AM EDT us Semaj Mcnair III, MD POINT OF CARE TEST ORDERABLES Final Result [facility] [address] [place] [address], [facility] * X-ray Portable Chest [...] - 15.1 seconds 10/27/2024 8:35 AM EDT [facility] INR 1.2(H) 0.9 - 1.1 10/27/2024 8:35 AM EDT [facility] Comment: RECOMMENDED THERAPEUTIC RANGES USING INR : Stable oral anticoagulant therapy: 2.0 - 3.0 Mechanical prosthetic heart valve: 2.5 - 3.5 Recurrent acute myocardial infarction: 2.5 - 3.5 Plasma 10/27/2024 8:16 AM EDT 10/27/2024 8:20 AM EDT John Moreno MD LAB BLOOD ORDERABLES Final R esult Performing Organization Address City/[facility] Co de Phone Number [facility] [address] * Magnesium (10/27/2024 8:00 AM EDT) Magnesium 1.8 1.5 - 2.5 mg/dL 10/27/2024 10:50 AM EDT [facility] Plasma 10/27/2024 8:00 AM EDT 10/27/2024 10:31 AM EDT Kemar Sahni MD LAB BLOOD ORDERABLES Final Result [facility] [address] [place] [address], [facility] * (ABNORMAL) Renal Function Panel w/EGFR (10/27/2024 8:00 AM EDT) Sodium 142 133 - 146 mmol/L 10/27/2024 10:18 AM EDT [facility] Potassium 3.0(L) 3.5 - 5.3 mmol/L 10/27/2024 10:18 AM EDT [facility] Chloride 109 98 - 110 mmol/L 10/27/2024 10:18 AM EDT [facility] CO2 21 21 - 33 mmol/L 10/27/2024 10:18 AM EDT [facility] Anion Gap 12 3 - 16 mmol/L 10/27/2024 10:18 AM EDT [facility] BUN 59(H) 7 - 25 mg/dL 10/27/2024 10:18 AM EDT [facility] Creatinine 2.54(H) 0.60 - 1.30 mg/dL 10/27/2024 10:18 AM EDT [facility] Glucose 111(H) 70 - 100 mg/dL 10/27/2024 10:18 AM EDT [facility] Calcium 9.1 8.6 - 10.3 mg/dL 10/27/2024 10:18 AM EDT [facility] Phosphorus 5.5(H) 2.1 - 4.7 mg/dL 10/27/2024 10:18 AM EDT [facility] Albumin 3.0(L) 3.5 - 5.7 g/dL 10/27/2024 10:18 AM EDT [facility] Osmolality, Calculated 311(H) 278 - 305 mOsm/kg 10/27/2024 10:18 AM EDT [facility] EGFR 32 10/27/2024 10:18 AM EDT [facility] Comment:As of 2021, the estimated [...] MD LAB BLOOD ORDERABLES Final Result [facility] [address] * (ABNORMAL) Hepatic Function Panel, STAT (10/27/2024 8:00 AM EDT) Total Bilirubin 1.3 0.0 - 1.5 mg/dL 10/27/2024 8:51 AM EDT [facility] Bilirubin, Direct 0.93(H) 0.00 - 0.40 mg/dL 10/27/2024 8:51 AM EDT [facility] AST 88(H) 13 - 39 U/L 10/27/2024 8:51 AM EDT [facility] ALT 149(H) 7 - 52 U/L 10/27/2024 8:51 AM EDT [facility] Alkaline Phosphatase 26(L) 36 - 125 U/L 10/27/2024 8:51 AM EDT [facility] Total Protein 4.0(L) 6.4 - 8.9 g/dL 10/27/2024 8:51 AM EDT [facility] Albumin 3.0(L) 3.5 - 5.7 g/dL 10/27/2024 8:51 AM EDT [facility] Bilirubin, Indirect 0.37 0.00 - 1.10 mg/dL 10/27/2024 8:51 AM EDT [facility] Plasma 10/27/2024 8:00 AM EDT 10/27/2024 8:20 AM EDT Semaj Mcnair III, MD LAB BLOOD ORDERABLE S Final Result Performing Organization Address City/[facility]/ZIP Co de Phone Number [facility] [address] [facility] * (ABNORMAL) Lactic Acid, STAT (10/27/2024 8:00 AM EDT) Lactate 0.4(L) 0.5 - 2.2 mmol/L 10/27/2024 8:43 AM EDT [facility] Plasma 10/27/2024 8:00 AM EDT 10/27/2024 8:20 AM EDT Semaj Mcnair III, MD LAB BLOOD ORDERABLE S Final Result Performing Organization Address [facility] de Phone Number [facility] [address] [facility] * (ABNORMAL) Blood Gas, Arterial, STAT (10/27/2024 8:00 AM EDT) O2 Sat, Arterial 100 10/27/2024 8:23 AM EDT [facility] pH, Arterial 7.36 7.35 - 7.45 10/27/2024 8:23 AM EDT [facility] pCO2, Arterial 37 35 - 45 mm Hg 10/27/2024 8:23 AM EDT [facility] pO2, Arterial 245(H) 80 - 100 mm Hg 10/27/2024 8:23 AM EDT [facility] HCO3, Arterial 22 22 - 26 mmol/L 10/27/2024 8:23 AM EDT [facility] CO2 Content,Arteri al 22(L) 23 - 27 mmol/L 10/27/2024 8:23 AM EDT [facility] Base Excess, Arterial -4.2(L) -2.0 - 3.0 mmol/L 10/27/2024 8:23 AM EDT [facility] %HBO2, Arterial 96.5 95.0 - 98.0 % 10/27/2024 8:23 AM EDT [facility] Carboxyhemoglo bin, Arterial 2.2 % 10/27/2024 8:23 AM EDT [facility] Comment: CARBOXYHEMOGLOBIN (CO) REFERENCE RANGES: Non-Smokers: <2 % Smokers: <8 % TOXIC: >20 % Methemoglobin, Arterial 1.2 0.0 - 1.5 % 10/27/2024 8:23 AM EDT [facility] Reduced hemoglobin, Arterial 0.0 0.0 - 5.0 % 10/27/2024 8:23 AM EDT [facility] Blood, Arterial 10/27/2024 8 :00 AM EDT 10/27/2024 8:19 AM EDT Narrative [facility] - 10/27/2024 8:23 AM EDT Specimen is beyond 15 minutes from time of collection. Results may be compromised. Review results critically. Kemar Sahni MD LAB BLOOD ORDERABLES Final Result [facility] [address] [id number], [facility] * (ABNORMAL) TEG-Bypass/ECMO/Liver HN (Factor function, Platelet/Fibrin Clot Strength w/Clot Breakdown, Heparinase In All Channels) (10/27/2024 8:00 AM EDT) [facility] Citrated Kaolin Reaction Time (TEGECMOLIVER) 7.8 4.6 - 9.1 minutes 10/27/2024 9:39 AM EDT [facility] Citrated Kaolin W/Heparinase Reaction Time (TEGECMOLIVER) 8.0 4.3 - 8.3 minutes 10/27/2024 9:39 AM EDT [facility] Citrated Kaolin Maximum Amplitude (TEGECMOLIVER) 52.7 52.0 - 69.0 mm 10/27/2024 9:39 AM EDT [facility] Citrated Functional Fibrinogen W/Heparinase Maximum Amplitude(TEGEC MOLIVER) 19.0 15.0 - 34.0 mm 10/27/2024 9:39 AM EDT [facility] Citrated Rapid Teg W/Heparinase Maximum Amplitude (TEGECMOLIVER) 49.5(L) 53.0 - 69.0 mm 10/27/2024 9:39 AM EDT [facility] Citrated Kaolin w/Heparinase Percent Lysis (TEGECMOLIVER) 0.0 0.0 - 3.2 % 10/27/2024 9:39 AM EDT [facility] Whole Blood (Citrate) 10/27/2024 8:00 AM EDT 10/27/2024 8:19 AM EDT Kemar Sahni MD LAB BLOOD ORDERABLES Final Result Performing Organization Address [facility] de Phone Number [facility] [address] [facility] * (ABNORMAL) Katie-Watkins virus VCA IgG Antibody (10/27/2024 8:00 AM EDT) EBV VCA IgG Positive( A) Negative 10/27/2024 11:30 AM EDT [facility] Comment:Presence of detectab le VCA IgG antibodies. 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 EBV IGG NUM 314.00(H) 0.00 - 17.99 U/mL 10/27/2024 11:30 AM EDT [facility] Serum 10/27/2024 8:00 AM EDT 10/27/2024 8:20 AM EDT Kemar Sahni MD LAB BLOOD ORDERABLES Final Result Performing Organization Address [facility] de Phone Number [facility] [address] [facility] * Hemoglobin A1c (10/27/2024 8:00 AM EDT) Hemoglobin A1C 5.0 4.0 - 5.6 % 10/27/2024 11:12 AM EDT [facility] Comment: Hemoglobin A1c Interpretation Guidelines: [...] BLOOD ORDERABLES Final Result Performing Organization Address City/[facility]/ZIP Co de Phone Number [facility] [address] * (ABNORMAL) POC Glucose Monitoring Device (10/27/2024 7:59 AM EDT) [facility] POC Glucose Monitoring Device 113(H) 70 - 100 mg/dL 10/27/2024 7:59 AM EDT [facility] Blood 10/27/2024 7:59 AM EDT 10/27/2024 7:59 AM EDT Semaj Mcnair III, MD POINT OF CARE TEST ORDERABLES Final Result Performing Organization Address [facility] de Phone Number [facility] [address] * X-ray Abdomen AP view (10/27/2024 [...] Units (10/27/2024 6:16 AM EDT) Product Code F3466P93 HCLL Unit Number [id number] HCLL Dispense Status Presumed Transfused_PT HCLL Blood Expiration Date [id number] HCLL Coding System USFC423 HCLL Product Code A4593M44 HCLL Unit Number [id number] HCLL Dispense Status Presumed Transfused_PT HCLL Blood Expiration Date [id number] HCLL Coding System [id number] HCLL Blood Bank Product John Pina MD BLOOD BANK PRODUCT ORDERABLES F inal Result Performing Organization Address [facility] Co de Phone Number HCLL * Prepare Platelets, leukoreduced, 1 Units (10/27/2024 6:16 AM EDT) Product Code Q0281Z70 HCLL Unit Number [id number] HCLL Dispense Status Presumed Transfused_PT HCLL Blood Expiration Date [id number] HCLL Coding System QUMU989 HCLL Blood Bank Product Eber Quinones MD BLOOD BANK PRODUCT ORDER PAL Final Result Performing Organization Address [facility] de Phone Number HCLL * Prepare Cryoprecipitate, 1 Units (10/27/2024 6:16 AM EDT) Product Code E7531D91 HCLL Unit Number [id number] HCLL Dispense Status Presumed Transfused_PT HCLL Blood Expiration Date HCLL Coding System CONK293 HCLL Product Code R6739G64 HCLL Unit Number [id number] HCLL Dispense Status Presumed Transfused_PT HCLL Blood Expiration Date 172670615702 HCLL Coding System OOBH637 HCLL Blood Bank Product Eber Quinones MD BLOOD BANK PRODUCT ORDER PAL Final Result Performing Organization Address City/[facility] Co de Phone Number HCLL * Prepare Fresh Frozen Plasma, 10 Units (10/27/2024 6:16 AM EDT) Product Code A4350L61 HCLL Unit Number [id number] HCLL Dispense Status Presumed Transfused_PT HCLL Blood Expiration Date 762475836604 HCLL Coding System MBDP066 HCLL Product Code S1649X65 HCLL Unit Number [id number] HCLL Dispense Status Presumed Transfused_PT HCLL Blood Expiration Date 147498817340 HCLL Coding System GDKG678 HCLL Product Code X1171R00 HCLL Unit Number [id number] HCLL Dispense Status Presumed Transfused_PT HCLL Blood Expiration Date 384837035500 HCLL Coding System VEWN183 HCLL Product Code S3383C44 HCLL Unit Number [id number] HCLL Dispense Status Presumed Transfused_PT HCLL Blood Expiration Date HCLL Coding System FTDJ080 HCLL Product Code S6114Y55 HCLL Unit Number [id number] HCLL Dispense Status Released from Crossmatch_RE HCLL Blood Expiration Date 266803181244 HCLL Coding System LAAH907 HCLL Product Code Q0102D98 HCLL Unit Number [id number] HCLL Dispense Status Released from Crossmatch_RE HCLL Blood Expiration Date HCLL Coding System PMZB470 HCLL Product Code Q2868F60 HCLL Unit Number [id number] HCLL Dispense Status Presumed Transfused_PT HCLL Blood Expiration Date HCLL Coding System AMGC663 HCLL Product Code A8324S27 HCLL Unit Number [id number] HCLL Dispense Status Presumed Transfused_PT HCLL Blood Expiration Date 332539080201 HCLL Coding System KJZF825 HCLL Product Code L2966M35 HCLL Unit Number [id number] HCLL Dispense Status Presumed Transfused_PT HCLL Blood Expiration Date HCLL Coding System LDWH824 HCLL Product Code M5838B80 HCLL Unit Number [id number] HCLL Dispense Status Presumed Transfused_PT HCLL Blood Expiration Date 498372290306 HCLL Coding System GUMW758 HCLL Blood Bank Product us Leandra Og MD BLOOD BANK PRODUCT ORD ERABLES Final Result [facility] * Prepare Platelets, leukoreduced, 1 Units (10/27/2024 6:16 AM EDT) Product Code E2448F40 HCLL Unit Number [id number] HCLL Dispense Status Presumed Transfused_PT HCLL Blood Expiration Date 744394918894 HCLL Coding System UTND324 HCLL Blood Bank Product us Ben Blake MD BLOOD BANK PRODUCT ORDERABLES Final Result Performing Organization Address [facility] de Phone Number HCLL * Prepare Fresh Frozen Plasma (10/27/2024 6:15 AM EDT) Product Code F5814D48 HCLL Unit Number [id number] HCLL Dispense Status Presumed Transfused_PT HCLL Blood Expiration Date HCLL Coding System LWAO871 HCLL Product Code B6172M90 HCLL Unit Number [id number] HCLL Dispense Status Released from Crossmatch_RE HCLL Blood Expiration Date 364466116323 HCLL Coding System EGHI314 HCLL Product Code Y3126H69 HCLL Unit Number [id number] HCLL Dispense Status Presumed Transfused_PT HCLL Blood Expiration Date HCLL Coding System PJKR950 HCLL Product Code S2297Q86 HCLL Unit Number [id number] HCLL Dispense Status Presumed Transfused_PT HCLL Blood Expiration Date HCLL Coding System WEMP770 HCLL Product Code S8324S88 HCLL Unit Number [id number] HCLL Dispense Status Released from Crossmatch_RE HCLL Blood Expiration Date HCLL Coding System TMWM162 HCLL us Attending Provider Unknown BLOOD BANK PRODUCT OR DERABLES Final Result Performing Organization Address [facility] Co de Phone Number HCLL * Prepare RBC, leukoreduced (10/27/2024 6:15 AM EDT) Product Code J2857O19 HCLL Unit Number [id number] HCLL Dispense Status Presumed Transfused_PT HCLL Blood Expiration Date HCLL Coding System CQBB150 HCLL Product Code P2315P19 HCLL Unit Number [id number] HCLL Dispense Status Released from Crossmatch_RE HCLL Blood Expiration Date HCLL Coding System NAYW511 HCLL Product Code X1045Q74 HCLL Unit Number [id number] HCLL Dispense Status Released from Crossmatch_RE HCLL Blood Expiration Date 463583414856 HCLL Coding System UENB514 HCLL Product Code O8088K17 HCLL Unit Number [id number] HCLL Dispense Status Released from Crossmatch_RE HCLL Blood Expiration Date 018633009190 HCLL Coding System TBEG961 HCLL Product Code R6225J56 HCLL Unit Number [id number] HCLL Dispense Status Released from Crossmatch_RE HCLL Blood Expiration Date 745888122691 HCLL Coding System HETC378 HCLL Attending Provider Unknown BLOOD BANK PRODUCT OR DERABLES Final Result HC[facility] * Prepare RBC, leukoreduced, 10 Units (10/27/2024 6:15 AM EDT) Product Code E0616W55 HCLL Unit Number [id number] HCLL Dispense Status Presumed Transfused_PT HCLL Blood Expiration Date HCLL Coding System CZNV505 HCLL Product Code I8980D39 HCLL Unit Number [id number] HCLL Dispense Status Presumed Transfused_PT HCLL Blood Expiration Date HCLL Coding System BIJS227 HCLL Product Code T6898R96 HCLL Unit Number [id number] HCLL Dispense Status Presumed Transfused_PT HCLL Blood Expiration Date HCLL Coding System YRVU930 HCLL Product Code Q7810D52 HCLL Unit Number [id number] HCLL Dispense Status Presumed Transfused_PT HCLL Blood Expiration Date 104024604742 HCLL Coding System FRET420 HCLL Product Code Q2823U69 HCLL Unit Number [id number] HCLL Dispense Status Presumed Transfused_PT HCLL Blood Expiration Date HCLL Coding System NYXB198 HCLL Product Code N3316D37 HCLL Unit Number [id number] HCLL Dispense Status Presumed Transfused_PT HCLL Blood Expiration Date HCLL Coding System FAKV844 HCLL Product Code C1929C80 HCLL Unit Number [id number] HCLL Dispense Status Presumed Transfused_PT HCLL Blood Expiration Date HCLL Coding System UCTF243 HCLL Product Code F3948P51 HCLL Unit Number [id number] HCLL Dispense Status Presumed Transfused_PT HCLL Blood Expiration Date HCLL Coding System ZARO363 HCLL Product Code P3155L93 HCLL Unit Number [id number] HCLL Dispense Status Presumed Transfused_PT HCLL Blood Expiration Date HCLL Coding System DZEP939 HCLL Product Code A7287X83 HCLL Unit Number [id number] HCLL Dispense Status Presumed Transfused_PT HCLL Blood Expiration Date 411119046792 HCLL Coding System LUUW357 HCLL Blood Bank Product us Leandra Og MD BLOOD BANK PRODUCT ORD ERABLES Final Result HC[facility] * Transfuse Platelets (10/27/2024 6:09 AM EDT) us Ben Blake MD NURSING TREATMENT ORDERABLES - BLOOD ADMIN Final Result * (ABNORMAL) Arterial Blood Gas Panel (10/27/2024 6:09 AM EDT) O2Sat (ABGP) 100 10/27/2024 6:17 AM [facility] pH (ABGP) 7.30(L) 7.35 - 7.45 10/27/2024 6:17 AM [facility] PCO2 (ABGP) 41 35 - 45 mm Hg 10/27/2024 6:17 AM [facility] PO2 (ABGP) 192(H) 80 - 100 mm Hg 10/27/2024 6:17 AM [facility] HCO3 (ABGP) 21(L) 22 - 26 mmol/L 10/27/2024 6:17 AM [facility] CO2 Content (ABGP) 22(L) 23 - 27 mmol/L 10/27/2024 6:17 AM [facility] Base Excess (ABGP) -5.7(L) -2.0 - 3.0 mmol/L 10/27/2024 6:17 AM [facility] Sodium (ABGP) 138 136 - 146 mEq/L 10/27/2024 6:17 AM [facility] Potassium (ABGP) 3.3(L) 3.5 - 5.0 mEq/L 10/27/2024 6:17 AM [facility] Comment:In the event of in-v itro hemolysis, potassium results may be falsely elevated. Always interpret lab results in conjunction with clinical findings. If hemolysis is suspected, a serum sample may be collected for repeat assessment of potassium. Calcium, Free (ABGP) 5.28 4.50 - 5.30 mg/dL 10/27/2024 6:17 AM [facility] Glucose (ABGP) 112(H) 70 - 100 mg/dL 10/27/2024 6:17 AM [facility] Comment:There is interferenc e with whole blood glucose results on this method when Hematocrit is <25% or >60%. HCT (ABGP) 20.0(L) 40.0 - 52.0 % 10/27/2024 6:17 AM [facility] HGB (ABGP) 6.5(L) 14.0 - 18.0 g/dL 10/27/2024 6:17 AM [facility] %HBO2 (ABGP) 96.8 95.0 - 98.0 % 10/27/2024 6:17 AM [facility] Carboxyhgb (ABGP) 2.1 % 025 6:17 AM EDT [facility] Comment: CARBOXYHEMOGLOBIN (CO) REFERENCE RANGES: Non-Smokers: <2 % Smokers: <8 % TOXIC: >20 % Methemoglobin (ABGP) 1.0 0.0 - 1.5 % 10/27/2024 6:17 AM EDT [facility] Reduced Hemoglobin (ABGP) 0.2 0.0 - 5.0 % 10/27/2024 6:17 AM EDT [facility] Lactic Acid (ABGP) 0.4(L) 0.5 - 1.6 mmol/L 10/27/2024 6:17 AM EDT [facility] Blood, Arterial 10/27/2024 6 :09 AM EDT 10/27/2024 6:14 AM EDT us Ben Blake MD LAB BLOOD ORDERABLES Final Re sult [facility] [address] * Transfuse Fresh Frozen Plasma (10/27/2024 [...] Glucose Monitoring Device (10/27/2024 4:46 AM EDT) [facility] POC Glucose Monitoring Device 124(H) 70 - 100 mg/dL 10/27/2024 4:47 AM EDT [facility] Blood 10/27/2024 4:46 AM EDT 10/27/2024 4:47 AM EDT us Semaj Mcnair III, MD POINT OF CARE TEST ORDERABLES Final Result [facility] [address] [address], [facility] * Transfuse Platelets (10/27/2024 [...] O2Sat (ABGP) 100 10/27/2024 3:21 AM EDT [facility] pH (ABGP) 7.32(L) 7.35 - 7.45 10/27/2024 3:21 AM EDT [facility] PCO2 (ABGP) 38 35 - 45 mm Hg 10/27/2024 3:21 AM EDT [facility] PO2 (ABGP) 176(H) 80 - 100 mm Hg 10/27/2024 3:21 AM EDT [facility] HCO3 (ABGP) 20(L) 22 - 26 mmol/L 10/27/2024 3:21 AM EDT [facility] CO2 Content (ABGP) 21(L) 23 - 27 mmol/L 10/27/2024 3:21 AM EDT [facility] Base Excess (ABGP) -6.0(L) -2.0 - 3.0 mmol/L 10/27/2024 3:21 AM EDT [facility] Sodium (ABGP) 138 136 - 146 mEq/L 10/27/2024 3:21 AM EDT [facility] Potassium (ABGP) 3.0(L) 3.5 - 5.0 mEq/L 10/27/2024 3:21 AM EDT [facility] Comment:In the event of in-v itro hemolysis, potassium results may be falsely elevated. Always interpret lab results in conjunction with clinical findings. If hemolysis is suspected, a serum sample may be collected for repeat assessment of potassium. Calcium, Free (ABGP) 5.28 4.50 - 5.30 mg/dL 10/27/2024 3:21 AM EDT [facility] Glucose (ABGP) 108(H) 70 - 100 mg/dL 10/27/2024 3:21 AM EDT [facility] Comment:There is interferenc e with whole blood glucose results on this method when Hematocrit is <25% or >60%. HCT (ABGP) 22.0(L) 40.0 - 52.0 % 10/27/2024 3:21 AM EDT [facility] HGB (ABGP) 7.3(L) 14.0 - 18.0 g/dL 10/27/2024 3:21 AM EDT [facility] %HBO2 (ABGP) 97.3 95.0 - 98.0 % 10/27/2024 3:21 AM EDT [facility] Carboxyhgb (ABGP) 1.9 % 025 3:21 AM EDT [facility] Comment: CARBOXYHEMOGLOBIN (CO) REFERENCE RANGES: Non-Smokers: <2 % Smokers: <8 % TOXIC: >20 % Methemoglobin (ABGP) 0.8 0.0 - 1.5 % 10/27/2024 3:21 AM EDT [facility] Reduced Hemoglobin (ABGP) 0.0 0.0 - 5.0 % 10/27/2024 3:21 AM EDT [facility] Lactic Acid (ABGP) 0.3(L) 0.5 - 1.6 mmol/L 10/27/2024 3:21 AM EDT [facility] Blood, Arterial 10/27/2024 3 :07 AM EDT 10/27/2024 3:14 AM EDT us Ben Blake MD LAB BLOOD ORDERABLES Final Re sult [facility] [address] [place] [address], [facility] * Surgical Pathology Exam (10/27/2024 2:38 AM EDT) Tissue LEFT KIDNEY STRUCTURE / Unknown 10/27/2024 2:38 AM EDT Narrative [facility] - 10/27/2024 12:00 AM EDT CASE: [id number] PATIENT: BLAIR GILBERT Clinical History: Transplant kidney with bile duct reconstruction Pre-Operative Diagnosis: Acute kidney injury superimposed on CKD Post-Operative Diagnosis: None Given Specimen(s) Submitted: A. baseline renal biopsy ; B. right lobe liver biopsy; C. left lobe liver biopsy CPT Code(s): 37713 X 1; 88259 X 2; 04904 X 4 Additional Information: FINAL DIAGNOSIS: A. [...] parenchyma, which is entirely submitted in cassette [id number]. (NAA Mckeon/rr) B. Received in formalin, labeled with the patient's name Blair Gilbert and right lobe liver biopsy are two green-brown tissue cores measuring 1.8 and 2.0 cm in length, each with a diameter of 0.1 cm, which are entirely submitted between blue biopsy sponges in cassette [id number]. (NAA Mckeon/ns) C. Received in formalin, [...] Pathologist signing this report is located at [facility], [address] [place] [address], [id number], , CLIA ID: [id number] ADDENDUM: A. Kidney, allograft, baseline, wedge biopsy: [...] Pathologist signing this report is located at [facility], [address] [place] [address], [id number], , CLIA ID: [id number] us Kemar Sahni MD PATHOLOGY/CYTOLOGY ORDERABL ES [...] RAL ORDERABLES Final Result Performing Organization Address City/[facility]/ZIP Co de Phone Number [facility] [address] * Fungus culture (10/27/2024 2:15 AM EDT) Culture Result No Fungus Isolated At 4 Weeks [facility] Fluid SPECIMEN FROM KIDNEY / Unknown 10/27/2024 2:15 AM EDT 10/27/2024 4:24 AM EDT Narrative [facility] - 11/24/2024 7:52 AM EDT 1) perfusate Semaj Mcnair III, MD MICROBIOLOGY - GENE RAL ORDERABLES Final Result Performing Organization Address [facility] Co de Phone Number [facility] [address] * Routine Culture plus Stain (10/27/2024 2:15 AM EDT) Gram Stain Result No Polymorphonuclear Leukocytes Seen [facility] Gram Stain Result No Organisms Seen; [facility] Culture Result No Growth After 3 Days [facility] Fluid SPECIMEN FROM KIDNEY / Unknown 10/27/2024 2:15 AM EDT 10/27/2024 4:24 AM EDT Narrative [facility] - 10/30/2024 9:26 AM EDT 1) perfusate Semaj Mcnair III, MD MICROBIOLOGY - GENE RAL ORDERABLES Final Result Performing Organization Address City/[facility]/ZIP Co de Phone Number [facility] [address] * Transfuse Platelets Transfusion Rate: Per [...] - 9.1 minutes 10/27/2024 2:44 AM EDT [facility] Citrated Rapid Teg Maximum Amplitude (TEGHEPARINASE) 42.3(L) 52.0 - 70.0 mm 10/27/2024 2:44 AM EDT [facility] Citrated Functional Fibrinogen Maximum Amplitude (TEGHEPARINASE) 15.0 15.0 - 32.0 mm 10/27/2024 2:44 AM EDT [facility] Citrated Kaolin W/Heparinase Reaction Time (TEGHEPARINASE) 10.5(H) 4.3 - 8.3 minutes 10/27/2024 2:44 AM EDT [facility] Citrated Kaolin K-Time (TEGHEPARINASE) 2.9(A) 0.8 - 2.1 minutes 10/27/2024 2:44 AM EDT [facility] Citrated Kaolin Angle (TEGHEPARINASE) 60.4(A) 63.0 - 78.0 degrees 10/27/2024 2:44 AM EDT [facility] Citrated Kaolin Maximum Amplitude (TEGHEPARINASE) 42.9(L) 52.0 - 69.0 mm 10/27/2024 2:44 AM EDT [facility] Citrated Functional Fibrinogen- Fibrinogen Level (TEGHEPARINASE) 273.7(L) 278.0 - 581.0 mg/dL 10/27/2024 2:44 AM EDT [facility] Whole Blood (Citrate) 10/27/2024 1:51 AM EDT 10/27/2024 2:03 AM EDT John Pina MD LAB BLOOD ORDERABLES Final Resu lt [facility] [address] * (ABNORMAL) POC Glucose Monitoring Device (10/27/2024 1:50 AM EDT) POC Glucose Monitoring Device 121(H) 70 - 100 mg/dL 10/27/2024 1:51 AM EDT [facility] Blood 10/27/2024 1:50 AM EDT 10/27/2024 1:51 AM EDT us Semaj Mcnair III, MD POINT OF CARE TEST ORDERABLES Final Result Performing Organization Address City/[facility]/ZIP Co de Phone Number [facility] [address] * Transfuse Cryoprecipitate Transfusion Rate: Per dept routine (10/27/2024 1:25 AM EDT) us John Pina MD NURSING TREATMENT ORDERABLES - BLOOD ADMIN Final Result Performing Organization Address City/[facility]/ZIP Co de Phone Number EXTERNAL * Transfuse Cryoprecipitate Transfusion Rate: Per dept routine, 1 Units (10/27/2024 1:25 AM EDT) us John Pina MD NURSING TREATMENT ORDERABLES - BLOOD ADMIN Final Result Performing Organization Address City/[facility]/ZIP Co de Phone Number EXTERNAL * (ABNORMAL) POC Glucose Monitoring Device (10/27/2024 1:21 AM EDT) POC Glucose Monitoring Device 123(H) 70 - 100 mg/dL 10/27/2024 1:22 AM EDT [facility] Blood 10/27/2024 1:21 AM EDT 10/27/2024 1:21 AM EDT us Semaj Mcnair III, MD POINT OF CARE TEST ORDERABLES Final Result Performing Organization Address City/[facility]/ZIP Co de Phone Number [facility] [address] * Transfuse Fresh Frozen Plasma Transfusion Rate: Per dept routine (10/27/2024 1:03 AM EDT) us John Pina MD NURSING TREATMENT ORDERABLES - BLOOD ADMIN Final Result Performing Organization Address [facility] de Phone Number EXTERNAL * Transfuse Fresh Frozen Plasma Transfusion Rate: Per dept routine, 1 Units (10/27/2024 1:03 AM EDT) us John Pina MD NURSING TREATMENT ORDERABLES - BLOOD ADMIN Final Result Performing Organization Address [facility] de Phone Number EXTERNAL * Calcium Free, Serum (10/27/2024 12:13 AM EDT) Free Calcium, Ser 5.20 4.40 - 5.40 mg/dL 10/27/2024 12:37 AM EDT [facility] Comment:Free calcium levels vary inversely with pH by approximately 5% for each 0.1 unit of pH change. Assay results have been normalized to pH = 7.40. Serum 10/27/2024 12:1 3 AM EDT 10/27/2024 12:29 AM EDT Narrative [facility] - 10/27/2024 12:37 AM EDT This test has been developed and its performance characteristics determined by [facility] which is certified under [...] ORDERABLES Final Resu lt Performing Organization Address [facility] de Phone Number [facility] [address] [place] [address], [facility] * (ABNORMAL) Blood Gas, Arterial, STAT (10/27/2024 12:13 AM EDT) O2 Sat, Arterial 100 10/27/2024 12:23 AM EDT [facility] FIO2 30 10/27/2024 12:23 AM EDT [facility] pH, Arterial 7.32(L) 7.35 - 7.45 10/27/2024 12:23 AM EDT [facility] pCO2, Arterial 37 35 - 45 mm Hg 10/27/2024 12:23 AM EDT [facility] pO2, Arterial 137(H) 80 - 100 mm Hg 10/27/2024 12:23 AM EDT [facility] HCO3, Arterial 20(L) 22 - 26 mmol/L 10/27/2024 12:23 AM EDT [facility] CO2 Content,Arteri al 20(L) 23 - 27 mmol/L 10/27/2024 12:23 AM EDT [facility] Base Excess, Arterial -6.4(L) -2.0 - 3.0 mmol/L 10/27/2024 12:23 AM EDT [facility] %HBO2, Arterial 96.2 95.0 - 98.0 % 10/27/2024 12:23 AM EDT [facility] Carboxyhemoglo bin, Arterial 1.9 % 10/27/2024 12:23 AM EDT [facility] Comment: CARBOXYHEMOGLOBIN (CO) REFERENCE RANGES: Non-Smokers: <2 % Smokers: <8 % TOXIC: >20 % Methemoglobin, Arterial 1.5 0.0 - 1.5 % 10/27/2024 12:23 AM EDT [facility] Reduced hemoglobin, Arterial 0.4 0.0 - 5.0 % 10/27/2024 12:23 AM EDT [facility] Blood, Arterial 10/27/2024 1 2:13 AM EDT 10/27/2024 12:18 AM EDT us John Pina MD LAB BLOOD ORDERABLES Final Resu lt [facility] [address] [id number], [facility] * (ABNORMAL) TEG-Bypass/ECMO/Liver HN (Factor function, Platelet/Fibrin Clot Strength w/Clot Breakdown, Heparinase In All Channels) (10/27/2024 12:13 AM EDT) [facility] Citrated Kaolin Reaction Time (TEGECMOLIVER) 9.1 4.6 - 9.1 minutes 10/27/2024 1:43 AM EDT [facility] Citrated Kaolin W/Heparinase Reaction Time (TEGECMOLIVER) 9.7(H) 4.3 - 8.3 minutes 10/27/2024 1:43 AM EDT [facility] Citrated Kaolin Maximum Amplitude (TEGECMOLIVER) <40.0(L) 52.0 - 69.0 mm 10/27/2024 1:43 AM EDT [facility] Citrated Functional Fibrinogen W/Heparinase Maximum Amplitude(TEGEC MOLIVER) 11.9(L) 15.0 - 34.0 mm 10/27/2024 1:43 AM EDT [facility] Citrated Rapid Teg W/Heparinase Maximum Amplitude (TEGECMOLIVER) 31.6(L) 53.0 - 69.0 mm 10/27/2024 1:43 AM EDT [facility] Citrated Kaolin w/Heparinase Percent Lysis (TEGECMOLIVER) 0.0 0.0 - 3.2 % 10/27/2024 1:43 AM EDT [facility] Whole Blood (Citrate) 10/27/2024 12:13 AM EDT 10/27/2024 12:18 AM EDT Kemar Sahni MD LAB BLOOD ORDERABLES Final Result Performing Organization Address [facility]/ZIP Co de Phone Number [facility] [address] [facility] * (ABNORMAL) Lactic Acid (10/27/2024 12:13 AM EDT) Lactate 0.2(L) 0.5 - 2.2 mmol/L 10/27/2024 12:59 AM EDT [facility] Plasma 10/27/2024 12:1 3 AM EDT 10/27/2024 12:31 AM EDT Kemar Shani MD LAB BLOOD ORDERABLES Final Result [facility] [address] * Magnesium (10/27/2024 12:13 AM EDT) Magnesium 1.8 1.5 - 2.5 mg/dL 10/27/2024 12:52 AM EDT [facility] Plasma 10/27/2024 12:1 3 AM EDT 10/27/2024 12:29 AM EDT Kemar Sahni MD LAB BLOOD ORDERABLES Final Result [facility] [address] * (ABNORMAL) Hepatic Function Panel (10/27/2024 12:13 AM EDT) Total Bilirubin 1.6(H) 0.0 - 1.5 mg/dL 10/27/2024 12:52 AM EDT [facility] Bilirubin, Direct 1.17(H) 0.00 - 0.40 mg/dL 10/27/2024 12:52 AM EDT [facility] AST 157(H) 13 - 39 U/L 10/27/2024 12:52 AM EDT [facility] ALT 261(H) 7 - 52 U/L 10/27/2024 12:52 AM EDT [facility] Alkaline Phosphatase 26(L) 36 - 125 U/L 10/27/2024 12:52 AM EDT [facility] Total Protein 3.8(L) 6.4 - 8.9 g/dL 10/27/2024 12:52 AM EDT [facility] Albumin 2.8(L) 3.5 - 5.7 g/dL 10/27/2024 12:52 AM EDT [facility] Bilirubin, Indirect 0.43 0.00 - 1.10 mg/dL 10/27/2024 12:52 AM EDT [facility] Plasma 10/27/2024 12:1 3 AM EDT 10/27/2024 12:29 AM EDT Kemar Sahni MD LAB BLOOD ORDERABLES Final Result Performing Organization Address [facility] Co de Phone Number [facility] [address] * (ABNORMAL) Protime-INR (10/27/2024 12:13 AM EDT) Protime 18.6(H) 12.1 - 15.1 seconds 10/27/2024 12:43 AM EDT [facility] INR 1.5(H) 0.9 - 1.1 10/27/2024 12:43 AM EDT [facility] Comment: RECOMMENDED THERAPEUTIC RANGES USING INR : Stable oral anticoagulant therapy: 2.0 - 3.0 Mechanical prosthetic heart valve: 2.5 - 3.5 Recurrent acute myocardial infarction: 2.5 - 3.5 Plasma 10/27/2024 12:1 3 AM EDT 10/27/2024 12:29 AM EDT Kemar Sahni MD LAB BLOOD ORDERABLES Final Result Performing Organization Address [facility] Co de Phone Number [facility] [address] [facility] * (ABNORMAL) CBC (10/27/2024 12:13 AM EDT) WBC 5.0 3.8 - 10.8 10E3/uL 10/27/2024 12:59 AM EDT [facility] RBC 2.70(L) 4.20 - 5.80 10E6/uL 10/27/2024 12:59 AM EDT [facility] Hemoglobin 8.5(L) 13.2 - 17.1 g/dL 10/27/2024 12:59 AM EDT [facility] Hematocrit 23.9(L) 38.5 - 50.0 % 10/27/2024 12:59 AM EDT [facility] MCV 88.5 80.0 - 100.0 fL 10/27/2024 12:59 AM EDT [facility] MCH 31.5 27.0 - 33.0 pg 10/27/2024 12:59 AM EDT [facility] MCHC 35.6 32.0 - 36.0 g/dL 10/27/2024 12:59 AM EDT [facility] RDW 20.6(H) 11.0 - 15.0 % 10/27/2024 12:59 AM EDT [facility] Platelets 35(L) 140 - 400 10E3/uL 10/27/2024 12:59 AM EDT [facility] Comment: CNV Specimen checked for clots. None detected. MPV 7.6 7.5 - 11.5 fL 10/27/2024 12:59 AM EDT [facility] Whole Blood 10/27/2024 12:1 3 AM EDT 10/27/2024 12:29 AM EDT us Kemar Sahni MD LAB BLOOD ORDERABLES Final Result [facility] [address] [place] [address], [facility] * (ABNORMAL) Renal Function Panel w/EGFR (10/27/2024 12:13 AM EDT) Sodium 141 133 - 146 mmol/L 10/27/2024 12:52 AM EDT [facility] Potassium 3.2(L) 3.5 - 5.3 mmol/L 10/27/2024 12:52 AM EDT [facility] Chloride 109 98 - 110 mmol/L 10/27/2024 12:52 AM EDT [facility] CO2 21 21 - 33 mmol/L 10/27/2024 12:52 AM EDT [facility] Anion Gap 11 3 - 16 mmol/L 10/27/2024 12:52 AM EDT [facility] BUN 64(H) 7 - 25 mg/dL 10/27/2024 12:52 AM EDT [facility] Creatinine 2.58(H) 0.60 - 1.30 mg/dL 10/27/2024 12:52 AM EDT [facility] Glucose 126(H) 70 - 100 mg/dL 10/27/2024 12:52 AM EDT [facility] Calcium 8.9 8.6 - 10.3 mg/dL 10/27/2024 12:52 AM EDT [facility] Phosphorus 5.3(H) 2.1 - 4.7 mg/dL 10/27/2024 12:52 AM EDT [facility] Albumin 2.8(L) 3.5 - 5.7 g/dL 10/27/2024 12:52 AM EDT [facility] Osmolality, Calculated 312(H) 278 - 305 mOsm/kg 10/27/2024 12:52 AM EDT [facility] EGFR 31 10/27/2024 12:52 AM EDT [facility] Comment:As of 2021, the estimated [...] MD LAB BLOOD ORDERABLES Final Result [facility] [address] * (ABNORMAL) POC Glucose Monitoring Device (10/27/2024 12:08 AM EDT) POC Glucose Monitoring Device 121(H) 70 - 100 mg/dL 10/27/2024 12:08 AM EDT [facility] Blood 10/27/2024 12:0 8 AM EDT 10/27/2024 12:08 AM EDT Semaj Mcnair III, MD POINT OF CARE TEST ORDERABLES Final Result [facility] [address] [facility] [place] [address], [facility] * (ABNORMAL) POC Glucose Monitoring Device (10/26/2024 11:15 PM EDT) [facility] POC Glucose Monitoring Device 120(H) 70 - 100 mg/dL 10/26/2024 11:15 PM EDT [facility] Blood 10/26/2024 11:1 5 PM EDT 10/26/2024 11:15 PM EDT Semaj Mcnair III, MD POINT OF CARE TEST ORDERABLES Final Result [facility] [address] [facility] * (ABNORMAL) TEG-Bypass/ECMO/Liver HN (Factor function, Platelet/Fibrin Clot Strength w/Clot Breakdown, Heparinase In All Channels) (10/26/2024 10:36 PM EDT) Citrated Kaolin Reaction Time (TEGECMOLIVER) 10.0(H) 4.6 - 9.1 minutes 10/26/2024 11:53 PM EDT [facility] Citrated Kaolin W/Heparinase Reaction Time (TEGECMOLIVER) 10.2(H) 4.3 - 8.3 minutes 10/26/2024 11:53 PM EDT [facility] Citrated Kaolin Maximum Amplitude (TEGECMOLIVER) <40.0(L) 52.0 - 69.0 mm 10/26/2024 11:53 PM EDT [facility] Citrated Functional Fibrinogen W/Heparinase Maximum Amplitude(TEGEC MOLIVER) 11.3(L) 15.0 - 34.0 mm 10/26/2024 11:53 PM EDT [facility] Citrated Rapid Teg W/Heparinase Maximum Amplitude (TEGECMOLIVER) 41.8(L) 53.0 - 69.0 mm 10/26/2024 11:53 PM EDT [facility] Citrated Kaolin w/Heparinase Percent Lysis (TEGECMOLIVER) 0.0 0.0 - 3.2 % 10/26/2024 11:53 PM EDT [facility] Whole Blood (Citrate) 10/26/2024 10:36 PM EDT 10/26/2024 10:43 PM EDT Kemar Sahni MD LAB BLOOD ORDERABLES Final Result Performing Organization Address City/[facility]/ZIP Co de Phone Number [facility] [address] [place] [address]. [address] * (ABNORMAL) POC Glucose Monitoring Device (10/26/2024 10:14 PM EDT) POC Glucose Monitoring Device 124(H) 70 - 100 mg/dL 10/26/2024 11:11 PM EDT [facility] Blood 10/26/2024 10:1 4 PM EDT 10/26/2024 11:11 PM EDT Semaj Mcnair III, MD POINT OF CARE TEST ORDERABLES Final Result Performing Organization Address [facility] Co de Phone Number [facility] [address] [facility] * (ABNORMAL) POC Glucose Monitoring Device (10/26/2024 9:16 PM EDT) POC Glucose Monitoring Device 119(H) 70 - 100 mg/dL 10/26/2024 9:18 PM EDT [facility] Blood 10/26/2024 9:16 PM EDT 10/26/2024 9:18 PM EDT Semaj Mcnair III, MD POINT OF CARE TEST ORDERABLES Final Result Performing Organization Address City/[facility] Co de Phone Number [facility] [address] * (ABNORMAL) POC Glucose Monitoring Device (10/26/2024 8:05 PM EDT) POC Glucose Monitoring Device 113(H) 70 - 100 mg/dL 10/26/2024 8:06 PM EDT [facility] Blood 10/26/2024 8:05 PM EDT 10/26/2024 8:06 PM EDT Semaj Mcnair III, MD POINT OF CARE TEST ORDERABLES Final Result Performing Organization Address [facility] Co de Phone Number [facility] [address] * (ABNORMAL) POC Glucose Monitoring Device (10/26/2024 7:02 PM EDT) POC Glucose Monitoring Device 111(H) 70 - 100 mg/dL 10/26/2024 7:03 PM EDT [facility] Blood 10/26/2024 7:02 PM EDT 10/26/2024 7:03 PM EDT Semja Mcnair III, MD POINT OF CARE TEST ORDERABLES Final Result Performing Organization Address [facility] Co de Phone Number [facility] [address] * Transfuse Cryoprecipitate Transfusion Rate: Per dept routine (10/26/2024 6:39 PM EDT) John Pina MD NURSING TREATMENT ORDERABLES - BLOOD ADMIN Final Result Performing Organization Address City/[facility] Co de Phone Number EXTERNAL * Transfuse Cryoprecipitate Transfusion Rate: Per dept routine, 1 Units (10/26/2024 6:39 PM EDT) John Pina MD NURSING TREATMENT ORDERABLES - BLOOD ADMIN Final Result Performing Organization Address City/[facility] Co de Phone Number EXTERNAL * (ABNORMAL) POC Glucose Monitoring Device (10/26/2024 6:33 PM EDT) POC Glucose Monitoring Device 110(H) 70 - 100 mg/dL 10/26/2024 6:34 PM EDT [facility] Blood 10/26/2024 6:33 PM EDT 10/26/2024 6:34 PM EDT us Semaj Mcnair III, MD POINT OF CARE TEST ORDERABLES Final Result Performing Organization Address [facility] Co de Phone Number [facility] [address] [facility] * Transfuse Cryoprecipitate Transfusion Rate: Per dept routine (10/26/2024 6:22 PM EDT) us John Pina MD NURSING TREATMENT ORDERABLES - BLOOD ADMIN Final Result Performing Organization Address [facility] Co de Phone Number EXTERNAL * Transfuse Cryoprecipitate Transfusion Rate: Per dept routine, 1 Units (10/26/2024 6:22 PM EDT) us John Pina MD NURSING TREATMENT ORDERABLES - BLOOD ADMIN Final Result Performing Organization Address [facility] Co de Phone Number EXTERNAL * (ABNORMAL) POC Glucose Monitoring Device (10/26/2024 6:17 PM EDT) POC Glucose Monitoring Device 104(H) 70 - 100 mg/dL 10/26/2024 6:18 PM EDT [facility] Blood 10/26/2024 6:17 PM EDT 10/26/2024 6:18 PM EDT us Semaj Mcnair III, MD POINT OF CARE TEST ORDERABLES Final Result Performing Organization Address [facility] Co de Phone Number [facility] [address] [facility] * (ABNORMAL) POC Glucose Monitoring Device (10/26/2024 4:58 PM EDT) POC Glucose Monitoring Device 115(H) 70 - 100 mg/dL 10/26/2024 4:59 PM EDT [facility] Blood 10/26/2024 4:58 PM EDT 10/26/2024 4:58 PM EDT us Semaj Mcnair III, MD POINT OF CARE TEST ORDERABLES Final Result Performing Organization Address [facility] Co de Phone Number [facility] [address] * (ABNORMAL) Calcium Free, Serum (10/26/2024 4:42 PM EDT) Free Calcium, Ser 5.67(H) 4.40 - 5.40 mg/dL 10/26/2024 4:55 PM EDT [facility] Comment:Free calcium levels vary inversely with pH by approximately 5% for each 0.1 unit of pH change. Assay results have been normalized to pH = 7.40. Serum 10/26/2024 4:42 PM EDT 10/26/2024 4:47 PM EDT [facility] - 10/26/2024 4:55 PM EDT This test has been developed and its performance characteristics determined by [facility] which is certified under [...] ORDERABLES Final Resu lt Performing Organization Address [facility] [place] [address], [facility] * Repeat Crossmatch (Recipient Sample) (10/26/2024 4:42 PM EDT) Repeat Cx - Recipient The request and specimen(s) for this test have been received and transported to the [facility] at [address] [place] [address]. The [facility] will report results directly to the client. 10/26/2024 4:49 PM EDT [facility] Whole Blood 10/26/2024 4:42 PM EDT 10/26/2024 4:49 PM EDT [facility] - 10/26/2024 4:49 PM EDT To be sent to [facility] for Donor [id number] cross match with Blair Gilbert Sveta Judge MD LAB BLOOD ORDERABLES Final Resu lt [facility] [address] * (ABNORMAL) Lactic Acid (10/26/2024 4:42 PM EDT) Lactate 0.3(L) 0.5 - 2.2 mmol/L 10/26/2024 5:19 PM EDT [facility] Plasma 10/26/2024 4:42 PM EDT 10/26/2024 4:47 PM EDT Kemar Sahni MD LAB BLOOD ORDERABLES Final Result Performing Organization Address [facility]/ZIP Co de Phone Number [facility] [address] [facility] * Magnesium (10/26/2024 4:42 PM EDT) Magnesium 2.0 1.5 - 2.5 mg/dL 10/26/2024 5:24 PM EDT [facility] Plasma 10/26/2024 4:42 PM EDT 10/26/2024 4:47 PM EDT Kemar Sahni MD LAB BLOOD ORDERABLES Final Result [facility] [address] [facility] * (ABNORMAL) Hepatic Function Panel (10/26/2024 4:42 PM EDT) Total Bilirubin 2.3(H) 0.0 - 1.5 mg/dL 10/26/2024 5:24 PM EDT [facility] Bilirubin, Direct 1.85(H) 0.00 - 0.40 mg/dL 10/26/2024 5:24 PM EDT [facility] AST 374(H) 13 - 39 U/L 10/26/2024 5:24 PM EDT [facility] ALT 458(H) 7 - 52 U/L 10/26/2024 5:24 PM EDT [facility] Alkaline Phosphatase 39 36 - 125 U/L 10/26/2024 5:24 PM EDT [facility] Total Protein 3.8(L) 6.4 - 8.9 g/dL 10/26/2024 5:24 PM EDT [facility] Albumin 3.0(L) 3.5 - 5.7 g/dL 10/26/2024 5:24 PM EDT [facility] Bilirubin, Indirect 0.45 0.00 - 1.10 mg/dL 10/26/2024 5:24 PM EDT [facility] Plasma 10/26/2024 4:42 PM EDT 10/26/2024 4:47 PM EDT Kemar Sahni MD LAB BLOOD ORDERABLES Final Result [facility] [address] * (ABNORMAL) Protime-INR (10/26/2024 4:42 PM EDT) Protime 20.3(H) 12.1 - 15.1 seconds 10/26/2024 5:12 PM EDT [facility] INR 1.7(H) 0.9 - 1.1 10/26/2024 5:12 PM EDT [facility] Comment: RECOMMENDED THERAPEUTIC RANGES USING INR : Stable oral anticoagulant therapy: 2.0 - 3.0 Mechanical prosthetic heart valve: 2.5 - 3.5 Recurrent acute myocardial infarction: 2.5 - 3.5 Plasma 10/26/2024 4:42 PM EDT 10/26/2024 4:47 PM EDT Kemar Sahni MD LAB BLOOD ORDERABLES Final Result [facility] [address] [place] [address], [facility] * (ABNORMAL) CBC (10/26/2024 4:42 PM EDT) WBC 10.0 3.8 - 10.8 10E3/uL 10/26/2024 5:00 PM EDT [facility] RBC 3.44(L) 4.20 - 5.80 10E6/uL 10/26/2024 5:00 PM EDT [facility] Hemoglobin 10.5(L) 13.2 - 17.1 g/dL 10/26/2024 5:00 PM EDT [facility] Hematocrit 30.2(L) 38.5 - 50.0 % 10/26/2024 5:00 PM EDT [facility] MCV 87.7 80.0 - 100.0 fL 10/26/2024 5:00 PM EDT [facility] MCH 30.6 27.0 - 33.0 pg 10/26/2024 5:00 PM EDT [facility] MCHC 34.8 32.0 - 36.0 g/dL 10/26/2024 5:00 PM EDT [facility] RDW 20.1(H) 11.0 - 15.0 % 10/26/2024 5:00 PM EDT [facility] Platelets 48(L) 140 - 400 10E3/uL 10/26/2024 5:00 PM EDT [facility] Comment:Specimen checked for clots. None detected. MPV 7.9 7.5 - 11.5 fL 10/26/2024 5:00 PM EDT [facility] Whole Blood 10/26/2024 4:42 PM EDT 10/26/2024 4:47 PM EDT us Kemar Sahni MD LAB BLOOD ORDERABLES Final Result [facility] [address] [place] [address], [facility] * (ABNORMAL) Renal Function Panel w/EGFR (10/26/2024 4:42 PM EDT) Pathologist [facility] Sodium 142 133 - 146 mmol/L 10/26/2024 5:24 PM EDT [facility] Potassium 3.3(L) 3.5 - 5.3 mmol/L 10/26/2024 5:24 PM EDT [facility] Chloride 109 98 - 110 mmol/L 10/26/2024 5:24 PM EDT [facility]ALTH LAB CO2 23 21 - 33 mmol/L 10/26/2024 5:24 PM EDT [facility] Anion Gap 10 3 - 16 mmol/L 10/26/2024 5:24 PM EDT [facility] BUN 63(H) 7 - 25 mg/dL 10/26/2024 5:24 PM EDT [facility] Creatinine 2.85(H) 0.60 - 1.30 mg/dL 10/26/2024 5:24 PM EDT [facility] Glucose 127(H) 70 - 100 mg/dL 10/26/2024 5:24 PM EDT [facility] Calcium 8.9 8.6 - 10.3 mg/dL 10/26/2024 5:24 PM EDT [facility] Phosphorus 4.4 2.1 - 4.7 mg/dL 10/26/2024 5:24 PM EDT [facility] Albumin 3.0(L) 3.5 - 5.7 g/dL 10/26/2024 5:24 PM EDT [facility] Osmolality, Calculated 314(H) 278 - 305 mOsm/kg 10/26/2024 5:24 PM EDT [facility] EGFR 28 10/26/2024 5:24 PM EDT [facility] Comment:As of 2021, the estimated [...] BLOOD ORDERABLES Final Result Performing Organization Address [facility] Co de Phone Number [facility] [address] [facility] * (ABNORMAL) POC Glucose Monitoring Device (10/26/2024 3:54 PM EDT) POC Glucose Monitoring Device 126(H) 70 - 100 mg/dL 10/26/2024 3:55 PM EDT [facility] Blood 10/26/2024 3:54 PM EDT 10/26/2024 3:55 PM EDT Semaj Mcnair III, MD POINT OF CARE TEST ORDERABLES Final Result Performing Organization Address [facility] Co de Phone Number [facility] [address] [facility] [place]. [address] * (ABNORMAL) POC Glucose Monitoring Device (10/26/2024 3:06 PM EDT) POC Glucose Monitoring Device 144(H) 70 - 100 mg/dL 10/26/2024 3:14 PM EDT [facility] Blood 10/26/2024 3:06 PM EDT 10/26/2024 3:13 PM EDT Semaj Mcnair III, MD POINT OF CARE TEST ORDERABLES Final Result Performing Organization Address [facility] Co de Phone Number [facility] [address] [facility] * (ABNORMAL) TEG-Bypass/ECMO/Liver HN (Factor function, Platelet/Fibrin Clot Strength w/Clot Breakdown, Heparinase In All Channels) (10/26/2024 3:03 PM EDT) Citrated Kaolin Reaction Time (TEGECMOLIVER) 8.2 4.6 - 9.1 minutes 10/26/2024 4:43 PM EDT [facility] Citrated Kaolin W/Heparinase Reaction Time (TEGECMOLIVER) 8.2 4.3 - 8.3 minutes 10/26/2024 4:43 PM EDT [facility] Citrated Kaolin Maximum Amplitude (TEGECMOLIVER) 41.7(L) 52.0 - 69.0 mm 10/26/2024 4:43 PM EDT [facility] Citrated Functional Fibrinogen W/Heparinase Maximum Amplitude(TEGEC MOLIVER) 11.4(L) 15.0 - 34.0 mm 10/26/2024 4:43 PM EDT [facility] Citrated Rapid Teg W/Heparinase Maximum Amplitude (TEGECMOLIVER) 38.6(L) 53.0 - 69.0 mm 10/26/2024 4:43 PM EDT [facility] Citrated Kaolin w/Heparinase Percent Lysis (TEGECMOLIVER) 0.0 0.0 - 3.2 % 10/26/2024 4:43 PM EDT [facility] Whole Blood (Citrate) 10/26/2024 3:03 PM EDT 10/26/2024 3:10 PM EDT Jani Mooney MD LAB BLOOD ORDERABLES Final Resul t Performing Organization Address City/State/[facility] Co de Phone Number [facility] [address] * ECG 12 lead (MUSE) (10/26/2024 2:19 PM EDT) 10/26/2024 2:19 PM EDT Narrative MUSE - 10/27/2024 10:09 AM EDT Ventricular Rate: 105 BPM Atrial Rate: 105 BPM P-R Interval: 128 ms QRS Duration: 94 ms QT: 474 ms QTc: 626 ms R Voca: -37 degrees T Voca: 35 degrees Diagnosis Line: Critical Test Result: [...] - 100 mg/dL 10/26/2024 2:01 PM EDT [facility] Blood 10/26/2024 2:00 PM EDT 10/26/2024 2:01 PM EDT Semaj Mcnair III, MD POINT OF CARE TEST ORDERABLES Final Result Performing Organization Address [facility] Co de Phone Number [facility] [address] [facility]. [address] * (ABNORMAL) POC Glucose Monitoring Device (10/26/2024 1:05 PM EDT) POC Glucose Monitoring Device 212(H) 70 - 100 mg/dL 10/26/2024 1:06 PM EDT [facility] Blood 10/26/2024 1:05 PM EDT 10/26/2024 1:06 PM EDT Semaj Mcnair III, MD POINT OF CARE TEST ORDERABLES Final Result Performing Organization Address [facility] Co de Phone Number [facility] [address] [facility]. [address] * Transfuse Cryoprecipitate Has consent been [...] BLOOD ADMIN Final Result Performing Organization Address [facility] de Phone Number EXTERNAL * (ABNORMAL) POC Glucose Monitoring Device (10/26/2024 12:06 PM EDT) POC Glucose Monitoring Device 226(H) 70 - 100 mg/dL 10/26/2024 12:07 PM EDT [facility] Blood 10/26/2024 12:0 6 PM EDT 10/26/2024 12:07 PM EDT Semaj Mcnair III, MD POINT OF CARE TEST ORDERABLES Final Result Performing Organization Address [facility] de Phone Number [facility] [address] [facility] * Transfuse Cryoprecipitate Transfusion Rate: Per dept routine (10/26/2024 12:01 PM EDT) John Pina MD NURSING TREATMENT ORDERABLES - BLOOD ADMIN Final Result Performing Organization Address [facility] de Phone Number EXTERNAL * Transfuse Cryoprecipitate Transfusion Rate: Per dept routine, 1 Units (10/26/2024 12:01 PM EDT) John Pina MD NURSING TREATMENT ORDERABLES - BLOOD ADMIN Final Result Performing Organization Address [facility] de Phone Number EXTERNAL * Lactic Acid (10/26/2024 10:48 AM EDT) Lactate 1.2 0.5 - 2.2 mmol/L 10/26/2024 11:27 AM EDT [facility] Plasma 10/26/2024 10:4 8 AM EDT 10/26/2024 10:53 AM EDT Kemar Sahni MD LAB BLOOD ORDERABLES Final Result Performing Organization Address [facility] Co de Phone Number [facility] [address] * Magnesium (10/26/2024 10:48 AM EDT) Magnesium 2.0 1.5 - 2.5 mg/dL 10/26/2024 11:26 AM EDT [facility] Plasma 10/26/2024 10:4 8 AM EDT 10/26/2024 10:53 AM EDT us Kemar Sahni MD LAB BLOOD ORDERABLES Final Result [facility] [address] * (ABNORMAL) Hepatic Function Panel (10/26/2024 10:48 AM EDT) Total Bilirubin 5.9(H) 0.0 - 1.5 mg/dL 10/26/2024 11:26 AM EDT [facility] Bilirubin, Direct 4.74(H) 0.00 - 0.40 mg/dL 10/26/2024 11:26 AM EDT [facility] AST 872(H) 13 - 39 U/L 10/26/2024 11:26 AM EDT [facility] ALT 736(H) 7 - 52 U/L 10/26/2024 11:26 AM EDT [facility] Alkaline Phosphatase 56 36 - 125 U/L 10/26/2024 11:26 AM EDT [facility] Total Protein 3.5(L) 6.4 - 8.9 g/dL 10/26/2024 11:26 AM EDT [facility] Albumin 2.5(L) 3.5 - 5.7 g/dL 10/26/2024 11:26 AM EDT [facility] Bilirubin, Indirect 1.16(H) 0.00 - 1.10 mg/dL 10/26/2024 11:26 AM EDT [facility] Plasma 10/26/2024 10:4 8 AM EDT 10/26/2024 10:53 AM EDT us Kemar Sahni MD LAB BLOOD ORDERABLES Final Result [facility] [address] * (ABNORMAL) Protime-INR (10/26/2024 10:48 AM EDT) Protime 23.0(H) 12.1 - 15.1 seconds 10/26/2024 11:26 AM EDT [facility] INR 2.0(H) 0.9 - 1.1 10/26/2024 11:26 AM EDT [facility] Comment: RECOMMENDED THERAPEUTIC RANGES USING INR : Stable oral anticoagulant therapy: 2.0 - 3.0 Mechanical prosthetic heart valve: 2.5 - 3.5 Recurrent acute myocardial infarction: 2.5 - 3.5 Plasma 10/26/2024 10:4 8 AM EDT 10/26/2024 10:53 AM EDT Kemar Sahni MD LAB BLOOD ORDERABLES Final Result [facility] [address] * (ABNORMAL) CBC (10/26/2024 10:48 AM EDT) WBC 17.3(H) 3.8 - 10.8 10E3/uL 10/26/2024 11:14 AM EDT [facility] RBC 4.22 4.20 - 5.80 10E6/uL 10/26/2024 11:14 AM EDT [facility] Hemoglobin 12.8(L) 13.2 - 17.1 g/dL 10/26/2024 11:14 AM EDT [facility] Hematocrit 37.2(L) 38.5 - 50.0 % 10/26/2024 11:14 AM EDT [facility] MCV 88.3 80.0 - 100.0 fL 10/26/2024 11:14 AM EDT [facility] MCH 30.4 27.0 - 33.0 pg 10/26/2024 11:14 AM EDT [facility] MCHC 34.4 32.0 - 36.0 g/dL 10/26/2024 11:14 AM EDT [facility] RDW 20.8(H) 11.0 - 15.0 % 10/26/2024 11:14 AM EDT [facility] Platelets 109(L) 140 - 400 10E3/uL 10/26/2024 11:14 AM EDT [facility] MPV 7.5 7.5 - 11.5 fL 10/26/2024 11:14 AM EDT [facility] Whole Blood 10/26/2024 10:4 8 AM EDT 10/26/2024 10:53 AM EDT us Kemar Sahni MD LAB BLOOD ORDERABLES Final Result [facility] [address] [place] [address], [facility] * (ABNORMAL) Blood gas, arterial (10/26/2024 10:48 AM EDT) O2 Sat, Arterial 97 10/26/2024 10:54 AM EDT [facility] FIO2 35% 10/26/2024 10:54 AM EDT [facility] pH, Arterial 7.37 7.35 - 7.45 10/26/2024 10:54 AM EDT [facility] pCO2, Arterial 36 35 - 45 mm Hg 10/26/2024 10:54 AM EDT [facility] pO2, Arterial 91 80 - 100 mm Hg 10/26/2024 10:54 AM EDT [facility] HCO3, Arterial 22 22 - 26 mmol/L 10/26/2024 10:54 AM EDT [facility] CO2 Content,Arteri al 22(L) 23 - 27 mmol/L 10/26/2024 10:54 AM EDT [facility] Base Excess, Arterial -3.9(L) -2.0 - 3.0 mmol/L 10/26/2024 10:54 AM EDT [facility] %HBO2, Arterial 94.8(L) 95.0 - 98.0 % 10/26/2024 10:54 AM EDT [facility] Carboxyhemoglo bin, Arterial 1.9 % 10/26/2024 10:54 AM EDT [facility] Comment: CARBOXYHEMOGLOBIN (CO) REFERENCE RANGES: Non-Smokers: <2 % Smokers: <8 % TOXIC: >20 % Methemoglobin, Arterial 0.7 0.0 - 1.5 % 10/26/2024 10:54 AM EDT [facility] Reduced hemoglobin, Arterial 2.5 0.0 - 5.0 % 10/26/2024 10:54 AM EDT [facility] Blood, Arterial 10/26/2024 1 0:48 AM EDT 10/26/2024 10:52 AM EDT us Shay Sifuentes MD LAB BLOOD ORDERABLES Final Resu lt [facility] [address] [place] [address], [facility] * (ABNORMAL) Renal Function Panel w/EGFR (10/26/2024 10:48 AM EDT) Sodium 139 133 - 146 mmol/L 10/26/2024 11:26 AM EDT [facility] Potassium 2.9(LL) 3.5 - 5.3 mmol/L 10/26/2024 11:26 AM EDT [facility] Comment:K CRITICAL VALUE WAS PREVIOUSLY CALLED Chloride 107 98 - 110 mmol/L 10/26/2024 11:26 AM EDT [facility] CO2 22 21 - 33 mmol/L 10/26/2024 11:26 AM EDT [facility] Anion Gap 10 3 - 16 mmol/L 10/26/2024 11:26 AM EDT [facility] BUN 61(H) 7 - 25 mg/dL 10/26/2024 11:26 AM EDT [facility] Creatinine 2.78(H) 0.60 - 1.30 mg/dL 10/26/2024 11:26 AM EDT [facility] Glucose 253(H) 70 - 100 mg/dL 10/26/2024 11:26 AM EDT [facility] Calcium 8.8 8.6 - 10.3 mg/dL 10/26/2024 11:26 AM EDT [facility] Phosphorus 4.1 2.1 - 4.7 mg/dL 10/26/2024 11:26 AM EDT [facility] Albumin 2.5(L) 3.5 - 5.7 g/dL 10/26/2024 11:26 AM EDT [facility] Osmolality, Calculated 314(H) 278 - 305 mOsm/kg 10/26/2024 11:26 AM EDT [facility] EGFR 28 10/26/2024 11:26 AM EDT [facility] Comment:As of 2021, the estimated [...] MD LAB BLOOD ORDERABLES Final Result [facility] [address] * (ABNORMAL) POC Glucose Monitoring Device (10/26/2024 10:47 AM EDT) POC Glucose Monitoring Device 234(H) 70 - 100 mg/dL 10/26/2024 10:48 AM EDT [facility] Blood 10/26/2024 10:4 7 AM EDT 10/26/2024 10:48 AM EDT us Semaj Mcnair III, MD POINT OF CARE TEST ORDERABLES Final Result [facility] [address] [facility] * CARISA Rhythm Strip - Scan (10/26/2024 10:45 AM EDT) us Scanning Uchhim SCAN DOCS - NO RESULTS Final Res ult * (ABNORMAL) POC Glucose Monitoring Device (10/26/2024 10:08 AM EDT) POC Glucose Monitoring Device 235(H) 70 - 100 mg/dL 10/26/2024 10:09 AM EDT [facility] Blood 10/26/2024 10:0 8 AM EDT 10/26/2024 10:09 AM EDT Semaj Mcnair III, MD POINT OF CARE TEST ORDERABLES Final Result Performing Organization Address City/[facility]/ZIP Co de Phone Number [facility] [address] [facility]. [address] * (ABNORMAL) POC Glucose Monitoring Device (10/26/2024 8:57 AM EDT) POC Glucose Monitoring Device 232(H) 70 - 100 mg/dL 10/26/2024 8:59 AM EDT [facility] Blood 10/26/2024 8:57 AM EDT 10/26/2024 8:58 AM EDT Semaj Mcnair III, MD POINT OF CARE TEST ORDERABLES Final Result [facility] [address] [place] [address]. [address] * ECG 12 lead (MUSE) (10/26/2024 8:16 AM EDT) 10/26/2024 8:16 AM EDT Narrative MUSE - 10/27/2024 10:09 AM EDT Ventricular Rate: 112 BPM QRS Duration: 96 ms QT: 452 ms QTc: 616 ms R Voca: -41 degrees T Voca: 40 degrees Diagnosis Line: Critical Test Result: Long QTc ^ SINUS TACHYCARDIA OCCASIONAL PREMATURE VENTRICULAR COMPLEXES ^ LEFT AXIS DEVIATION, LEFT ANTERIOR HEMIBLOCK ^ PROLONGED QT ^ ABNORMAL ECG ^ ^ Conf[id number] on 10/27/2024 10:09:18 AM us [...] - 100 mg/dL 10/26/2024 8:01 AM EDT [facility] Blood 10/26/2024 7:59 AM EDT 10/26/2024 8:00 AM EDT Semaj Mcnair III, MD POINT OF CARE TEST ORDERABLES Final Result [facility] [address] [place] [address], [facility] * (ABNORMAL) TEG-Bypass/ECMO/Liver HN (Factor function, Platelet/Fibrin Clot Strength w/Clot Breakdown, Heparinase In All Channels) (10/26/2024 7:59 AM EDT) Citrated Kaolin Reaction Time (TEGECMOLIVER) 8.2 4.6 - 9.1 minutes 10/26/2024 10:36 AM EDT [facility] Citrated Kaolin W/Heparinase Reaction Time (TEGECMOLIVER) 8.1 4.3 - 8.3 minutes 10/26/2024 10:36 AM EDT [facility] Citrated Kaolin Maximum Amplitude (TEGECMOLIVER) 46.8(L) 52.0 - 69.0 mm 10/26/2024 10:36 AM EDT [facility] Citrated Functional Fibrinogen W/Heparinase Maximum Amplitude(TEGEC MOLIVER) 10.5(L) 15.0 - 34.0 mm 10/26/2024 10:36 AM EDT [facility] Citrated Rapid Teg W/Heparinase Maximum Amplitude (TEGECMOLIVER) 45.5(L) 53.0 - 69.0 mm 10/26/2024 10:36 AM EDT [facility] Citrated Kaolin w/Heparinase Percent Lysis (TEGECMOLIVER) 0.0 0.0 - 3.2 % 10/26/2024 10:36 AM EDT [facility] Whole Blood (Citrate) 10/26/2024 7:59 AM EDT 10/26/2024 8:05 AM EDT Shay Sifuentes MD LAB BLOOD ORDERABLES Final Resu lt Performing Organization Address City/[facility]/ZIP Co de Phone Number [facility] [address] [place] [address]. [address] * (ABNORMAL) POC Glucose Monitoring Device (10/26/2024 6:12 AM EDT) POC Glucose Monitoring Device 196(H) 70 - 100 mg/dL 10/26/2024 6:13 AM EDT [facility] Blood 10/26/2024 6:12 AM EDT 10/26/2024 6:13 AM EDT Semaj Mcnair III, MD POINT OF CARE TEST ORDERABLES Final Result Performing Organization Address [facility]/ZIP Co de Phone Number [facility] [address] [facility] * Lactic Acid (10/26/2024 6:10 AM EDT) Lactate 1.2 0.5 - 2.2 mmol/L 10/26/2024 6:39 AM EDT [facility] Plasma 10/26/2024 6:10 AM EDT 10/26/2024 6:19 AM EDT us Sveta Judge MD LAB BLOOD ORDERABLES Final Resu lt Performing Organization Address City/[facility]/ZIP Co de Phone Number [facility] [address] [facility] * (ABNORMAL) Fibrinogen (10/26/2024 6:10 AM EDT) Fibrinogen 160(L) 218 - 406 mg/dL 10/26/2024 6:41 AM EDT [facility] Plasma 10/26/2024 6:10 AM EDT 10/26/2024 6:26 AM EDT Sveta Judge MD LAB BLOOD ORDERABLES Final Resu lt Performing Organization Address [facility] de Phone Number [facility] [address] [facility] * (ABNORMAL) Protime-INR (10/26/2024 6:10 AM EDT) Protime 25.0(H) 12.1 - 15.1 seconds 10/26/2024 6:41 AM EDT [facility] INR 2.2(H) 0.9 - 1.1 10/26/2024 6:41 AM EDT [facility] Comment: RECOMMENDED THERAPEUTIC RANGES USING INR : Stable oral anticoagulant therapy: 2.0 - 3.0 Mechanical prosthetic heart valve: 2.5 - 3.5 Recurrent acute myocardial infarction: 2.5 - 3.5 Plasma 10/26/2024 6:10 AM EDT 10/26/2024 6:26 AM EDT Sveta Judge MD LAB BLOOD ORDERABLES Final Resu lt Performing Organization Address [facility] Co de Phone Number [facility] [address] [facility] * (ABNORMAL) Blood gas, arterial (10/26/2024 6:10 AM EDT) O2 Sat, Arterial 98 10/26/2024 6:23 AM EDT [facility] FIO2 60 10/26/2024 6:23 AM EDT [facility] pH, Arterial 7.27(L) 7.35 - 7.45 10/26/2024 6:23 AM EDT [facility] pCO2, Arterial 47(H) 35 - 45 mm Hg 10/26/2024 6:23 AM EDT [facility] pO2, Arterial 127(H) 80 - 100 mm Hg 10/26/2024 6:23 AM EDT [facility] HCO3, Arterial 21(L) 22 - 26 mmol/L 10/26/2024 6:23 AM EDT [facility] CO2 Content,Arteri al 23 23 - 27 mmol/L 10/26/2024 6:23 AM EDT [facility] Base Excess, Arterial -5.4(L) -2.0 - 3.0 mmol/L 10/26/2024 6:23 AM EDT [facility] %HBO2, Arterial 94.6(L) 95.0 - 98.0 % 10/26/2024 6:23 AM EDT [facility] Carboxyhemoglo bin, Arterial 2.0 % 10/26/2024 6:23 AM EDT [facility] Comment: CARBOXYHEMOGLOBIN (CO) REFERENCE RANGES: Non-Smokers: <2 % Smokers: <8 % TOXIC: >20 % Methemoglobin, Arterial 1.6(H) 0.0 - 1.5 % 10/26/2024 6:23 AM EDT [facility] Reduced hemoglobin, Arterial 1.8 0.0 - 5.0 % 10/26/2024 6:23 AM EDT [facility] Blood, Arterial 10/26/2024 6 :10 AM EDT 10/26/2024 6:20 AM EDT Sveta Judge MD LAB BLOOD ORDERABLES Final Resu lt Performing Organization Address [facility] Co de Phone Number [facility] [address] [facility] * Magnesium (10/26/2024 6:10 AM EDT) Magnesium 1.5 1.5 - 2.5 mg/dL 10/26/2024 7:09 AM EDT [facility] Plasma 10/26/2024 6:10 AM EDT 10/26/2024 6:23 AM EDT Sveta Judge MD LAB BLOOD ORDERABLES Final Resu lt Performing Organization Address City/[facility] Co de Phone Number [facility] [address] * (ABNORMAL) Hepatic Function Panel (10/26/2024 6:10 AM EDT) Total Bilirubin 6.2(H) 0.0 - 1.5 mg/dL 10/26/2024 7:11 AM EDT [facility] Bilirubin, Direct 5.26(H) 0.00 - 0.40 mg/dL 10/26/2024 7:11 AM EDT [facility] AST 1,071(H) 13 - 39 U/L 10/26/2024 7:11 AM EDT [facility] ALT 805(H) 7 - 52 U/L 10/26/2024 7:11 AM EDT [facility] Alkaline Phosphatase 55 36 - 125 U/L 10/26/2024 7:11 AM EDT [facility] Total Protein <3.0(L) 6.4 - 8.9 g/dL 10/26/2024 7:11 AM EDT [facility] Albumin 1.9(L) 3.5 - 5.7 g/dL 10/26/2024 7:11 AM EDT [facility] Bilirubin, Indirect 0.94 0.00 - 1.10 mg/dL 10/26/2024 7:11 AM EDT [facility] Plasma 10/26/2024 6:10 AM EDT 10/26/2024 6:23 AM EDT us Sveta Judge MD LAB BLOOD ORDERABLES Final Resu lt [facility] [address] [place] [id number] * (ABNORMAL) Renal Function Panel w/EGFR (10/26/2024 6:10 AM EDT) Sodium 141 133 - 146 mmol/L 10/26/2024 7:09 AM EDT [facility] Potassium 2.8(LL) 3.5 - 5.3 mmol/L 10/26/2024 7:09 AM EDT [facility] Comment:Critical value previ ously called. Chloride 106 98 - 110 mmol/L 10/26/2024 7:09 AM EDT [facility] CO2 25 21 - 33 mmol/L 10/26/2024 7:09 AM EDT [facility] Anion Gap 10 3 - 16 mmol/L 10/26/2024 7:09 AM EDT [facility] BUN 57(H) 7 - 25 mg/dL 10/26/2024 7:09 AM EDT [facility] Creatinine 2.70(H) 0.60 - 1.30 mg/dL 10/26/2024 7:09 AM EDT [facility] Glucose 210(H) 70 - 100 mg/dL 10/26/2024 7:09 AM EDT [facility] Calcium 8.7 8.6 - 10.3 mg/dL 10/26/2024 7:09 AM EDT [facility] Phosphorus 5.4(H) 2.1 - 4.7 mg/dL 10/26/2024 7:09 AM EDT [facility] Albumin 1.9(L) 3.5 - 5.7 g/dL 10/26/2024 7:11 AM EDT [facility] Osmolality, Calculated 314(H) 278 - 305 mOsm/kg 10/26/2024 7:09 AM EDT [facility] EGFR 29 10/26/2024 7:09 AM EDT [facility] Comment:As of 2021, the estimated [...] LAB BLOOD ORDERABLES Final Resu lt [facility] [address] * (ABNORMAL) CBC (10/26/2024 6:10 AM EDT) WBC 14.8(H) 3.8 - 10.8 10E3/uL 10/26/2024 6:46 AM EDT [facility] RBC 4.04(L) 4.20 - 5.80 10E6/uL 10/26/2024 6:46 AM EDT [facility] Hemoglobin 12.7(L) 13.2 - 17.1 g/dL 10/26/2024 6:46 AM EDT [facility] Hematocrit 35.9(L) 38.5 - 50.0 % 10/26/2024 6:46 AM EDT [facility] MCV 89.0 80.0 - 100.0 fL 10/26/2024 6:46 AM EDT [facility] MCH 31.3 27.0 - 33.0 pg 10/26/2024 6:46 AM EDT [facility] MCHC 35.2 32.0 - 36.0 g/dL 10/26/2024 6:46 AM EDT [facility] RDW 19.7(H) 11.0 - 15.0 % 10/26/2024 6:46 AM EDT [facility] Platelets 107(L) 140 - 400 10E3/uL 10/26/2024 6:46 AM EDT [facility] MPV 7.4(L) 7.5 - 11.5 fL 10/26/2024 6:46 AM EDT [facility] Whole Blood 10/26/2024 6:10 AM EDT 10/26/2024 6:26 AM EDT us Sveta Judge MD LAB BLOOD ORDERABLES Final Resu lt [facility] [address] * (ABNORMAL) POC INR (10/26/2024 5:16 AM EDT) Prothrombin Time INR, POC 2.4(H) 0.8 - 1.4 10/27/2024 6:51 AM EDT [facility] Comment: Test results may vary [...] TEST ORDERABLES Final Result Performing Organization Address City/[facility]/ZIP Co de Phone Number [facility] [address] [facility] * POC Sample Type (10/26/2024 5:14 AM EDT) POC Sample Type Arterial 10/26/2024 5:31 AM EDT [facility] Blood, Arterial 10/26/2024 5 :14 AM EDT 10/26/2024 5:31 AM EDT Semaj Mcnair III, MD POINT OF CARE TEST ORDERABLES Final Result Performing Organization Address City/[facility] Co de Phone Number [facility] [address] [facility] * POC Anion Gap (10/26/2024 5:14 AM EDT) POC Anion Gap, Arterial 12 3 - 16 mmol/L 10/26/2024 5:31 AM EDT [facility] Blood, Arterial 10/26/2024 5 :14 AM EDT 10/26/2024 5:31 AM EDT us Semaj Mcnair III, MD POINT OF CARE TEST ORDERABLES Final Result Performing Organization Address City/[facility]/ZIP Co de Phone Number [facility] [address] [facility] * POC Chloride (10/26/2024 5:14 AM EDT) Pathologist [facility] POC Chloride 104 98 - 110 mmol/L 10/26/2024 5:31 AM EDT [facility] Blood, Arterial 10/26/2024 5 :14 AM EDT 10/26/2024 5:31 AM EDT us Semaj Mcnair III, MD POINT OF CARE TEST ORDERABLES Final Result [facility] [address] [facility] * (ABNORMAL) POC Hemoglobin (10/26/2024 5:14 AM EDT) [facility] POC Hemoglobin 9.5(L) 14.0 - 18.0 g/dL 10/26/2024 5:31 AM EDT [facility] Blood, Arterial 10/26/2024 5:14 AM EDT 10/26/2024 5:31 AM EDT us Semaj Mcnair III, MD POINT OF CARE TEST ORDERABLES Final Result Performing Organization Address [facility] Co de Phone Number [facility] [address] [place] [address]. [address] * (ABNORMAL) POC hematocrit (10/26/2024 5:14 AM EDT) [facility] POC Hematocrit 28.0(L) 40 - 52 % 10/26/2024 5:31 AM EDT [facility] Blood, Arterial 10/26/2024 5 :14 AM EDT 10/26/2024 5:31 AM EDT us Semaj Mcnair III, MD POINT OF CARE TEST ORDERABLES Final Result Performing Organization Address City/[facility]/ZIP Co de Phone Number [facility] [address] [facility] * POC Lactate (10/26/2024 5:14 AM EDT) POC Lactate 1.76 0.50 - 2.20 mmol/L 10/26/2024 5:31 AM EDT [facility] Blood, Arterial 10/26/2024 5 :14 AM EDT 10/26/2024 5:31 AM EDT us Semaj Mcnair III, MD POINT OF CARE TEST ORDERABLES Final Result Performing Organization Address City/[facility]/ZIP Co de Phone Number [facility] [address] [facility] * (ABNORMAL) POC Glucose (10/26/2024 5:14 AM EDT) POC Glucose, Arterial 183(H) 70 - 100 mg/dL 10/26/2024 5:31 AM EDT [facility] Blood, Arterial 10/26/2024 5 :14 AM EDT 10/26/2024 5:31 AM EDT us Semaj Mcnair III, MD POINT OF CARE TEST ORDERABLES Final Result Performing Organization Address [facility] Co de Phone Number [facility] [address] [place] [address]. [address] * (ABNORMAL) POC Ionized Calcium (10/26/2024 5:14 AM EDT) POC Ionized Calcium 5.50(H) 4.50 - 5.30 mg/dL 10/26/2024 5:31 AM EDT [facility] Blood, Arterial 10/26/2024 5 :14 AM EDT 10/26/2024 5:31 AM EDT us Semaj Mcnair III, MD POINT OF CARE TEST ORDERABLES Final Result Performing Organization Address City/[facility] Co de Phone Number [facility] [address] [facility]. [address] * (ABNORMAL) POC Potassium (10/26/2024 5:14 AM EDT) POC Potassium 2.8(LL) 3.5 - 5.3 mmol/L 10/26/2024 5:31 AM EDT [facility] Blood, Arterial 10/26/2024 5 :14 AM EDT 10/26/2024 5:31 AM EDT us Semaj Mcnair III, MD POINT OF CARE TEST ORDERABLES Final Result [facility] [address] [facility]. [address] * POC Sodium (10/26/2024 5:14 AM EDT) Pathologist [facility] [place] POC Sodium 138 136 - 146 mmol/L 10/26/2024 5:31 AM EDT [facility] Blood, Arterial 10/26/2024 5 :14 AM EDT 10/26/2024 5:31 AM EDT us Semaj Mcnair III, MD POINT OF CARE TEST ORDERABLES Final Result Performing Organization Address City/[facility] Co de Phone Number [facility] [address] [place] [address]. [address] * POC TCO2 (10/26/2024 5:14 AM EDT) Pathologist [facility] [place] POC TCO2, Arterial 23 23 - 27 mmol/L 10/26/2024 5:31 AM EDT [facility] Blood, Arterial 10/26/2024 5 :14 AM EDT 10/26/2024 5:31 AM EDT us Semaj Mcnair III, MD POINT OF CARE TEST ORDERABLES Final Result Performing Organization Address City/[facility] Co de Phone Number [facility] [address] [facility]. [address] * (ABNORMAL) POC O2 SAT (10/26/2024 5:14 AM EDT) Pathologist [facility] [place] POC O2 Saturation, Arterial 99(H) 95 - 98 % 10/26/2024 5:31 AM EDT [facility] Blood, Arterial 10/26/2024 5 :14 AM EDT 10/26/2024 5:31 AM EDT us Semaj Mcnair III, MD POINT OF CARE TEST ORDERABLES Final Result Performing Organization Address City/[facility]/ZIP Co de Phone Number [facility] [address] [place] [address]. [address] * (ABNORMAL) POC Base Excess (10/26/2024 5:14 AM EDT) POC Base Excess, Arterial -5(L) -2 - 3 mmol/L 10/26/2024 5:31 AM EDT [facility] Blood, Arterial 10/26/2024 5 :14 AM EDT 10/26/2024 5:31 AM EDT us Semaj Mcnair III, MD POINT OF CARE TEST ORDERABLES Final Result Performing Organization Address City/[facility] Co de Phone Number [facility] [address] [facility]. [address] * POC HCO3 (10/26/2024 5:14 AM EDT) POC HCO3, Arterial 22 22 - 26 mmol/L 10/26/2024 5:31 AM EDT [facility] Blood, Arterial 10/26/2024 5 :14 AM EDT 10/26/2024 5:31 AM EDT us Semaj Mcnair III, MD POINT OF CARE TEST ORDERABLES Final Result Performing Organization Address City/[facility] Co de Phone Number [facility] [address] [place] [address]. [address] * (ABNORMAL) POC PO2 (10/26/2024 5:14 AM EDT) POC pO2, Arterial 133(H) 80 - 100 mm Hg 10/26/2024 5:31 AM EDT [facility] Blood, Arterial 10/26/2024 5 :14 AM EDT 10/26/2024 5:31 AM EDT us Semaj Mcnair III, MD POINT OF CARE TEST ORDERABLES Final Result Performing Organization Address City/[facility]/ZIP Co de Phone Number [facility] [address] * POC PCO2 (10/26/2024 5:14 AM EDT) POC pCO2, Arterial 45 35 - 45 mm Hg 10/26/2024 5:31 AM EDT [facility] Blood, Arterial 10/26/2024 5 :14 AM EDT 10/26/2024 5:31 AM EDT Semaj Mcnair III, MD POINT OF CARE TEST ORDERABLES Final Result Performing Organization Address [facility] Co de Phone Number [facility] [address] * (ABNORMAL) POC pH (10/26/2024 5:14 AM EDT) POC pH, Arterial 7.29(L) 7.35 - 7.45 10/26/2024 5:31 AM EDT [facility] Blood, Arterial 10/26/2024 5 :14 AM EDT 10/26/2024 5:31 AM EDT us Semaj Mcnair III, MD POINT OF CARE TEST ORDERABLES Final Result Performing Organization Address City/[facility] Co de Phone Number [facility] [address] * Transfuse Cryoprecipitate (10/26/2024 4:37 AM EDT) us Eber Quinones MD NURSING TREATMENT ORDERA BLES - BLOOD ADMIN Final Result * Transfuse Cryoprecipitate (10/26/2024 4:37 AM EDT) Eber Quinones MD NURSING TREATMENT ORDERA BLES - BLOOD ADMIN Final Result * (ABNORMAL) POC INR (10/26/2024 4:27 AM EDT) Pathologist [facility] [place] Prothrombin Time INR, POC 2.3(H) 0.8 - 1.4 10/27/2024 6:51 AM EDT [facility] Comment: Test results may vary [...] OF CARE TEST ORDERABLES Final Result [facility] [address] [facility]. [address] * POC Sample Type (10/26/2024 4:24 AM EDT) [facility] POC Sample Type Arterial 10/26/2024 5:09 AM EDT [facility] Blood, Arterial 10/26/2024 4 :24 AM EDT 10/26/2024 5:09 AM EDT Result [facility] Semaj Mcnair III, MD POINT OF CARE TEST ORDERABLES Final Result [facility] [address] * POC Anion Gap (10/26/2024 4:24 AM EDT) Pathologist [facility] [place] POC Anion Gap, Arterial 14 3 - 16 mmol/L 10/26/2024 5:09 AM EDT [facility] Blood, Arterial 10/26/2024 4 :24 AM EDT 10/26/2024 5:09 AM EDT us Semaj Mcnair III, MD POINT OF CARE TEST ORDERABLES Final Result Performing Organization Address City/[facility]/ZIP Co de Phone Number [facility] [address] * POC Chloride (10/26/2024 4:24 AM EDT) POC Chloride 103 98 - 110 mmol/L 10/26/2024 5:09 AM EDT [facility] Blood, Arterial 10/26/2024 4 :24 AM EDT 10/26/2024 5:09 AM EDT us Semaj Mcnair III, MD POINT OF CARE TEST ORDERABLES Final Result Performing Organization Address City/[facility] Co de Phone Number [facility] [address] [facility] [place]. [address] * (ABNORMAL) POC Hemoglobin (10/26/2024 4:24 AM EDT) POC Hemoglobin 10.3(L) 14.0 - 18.0 g/dL 10/26/2024 5:09 AM EDT [facility] Blood, Arterial 10/26/2024 4 :24 AM EDT 10/26/2024 5:09 AM EDT us Semaj Mcnair III, MD POINT OF CARE TEST ORDERABLES Final Result [facility] [address] [facility] [place]. [address] * (ABNORMAL) POC hematocrit (10/26/2024 4:24 AM EDT) POC Hematocrit 30.0(L) 40 - 52 % 10/26/2024 5:09 AM EDT [facility] Blood, Arterial 10/26/2024 4 :24 AM EDT 10/26/2024 5:09 AM EDT us Semaj Mcnair III, MD POINT OF CARE TEST ORDERABLES Final Result Performing Organization Address [facility] Co de Phone Number [facility] [address] * (ABNORMAL) POC Lactate (10/26/2024 4:24 AM EDT) POC Lactate 2.43(H) 0.50 - 2.20 mmol/L 10/26/2024 5:09 AM EDT [facility] Blood, Arterial 10/26/2024 4 :24 AM EDT 10/26/2024 5:09 AM EDT us Semaj Mcnair III, MD POINT OF CARE TEST ORDERABLES Final Result Performing Organization Address [facility] de Phone Number [facility] [address] [facility] [place]. [address] * (ABNORMAL) POC Glucose (10/26/2024 4:24 AM EDT) POC Glucose, Arterial 185(H) 70 - 100 mg/dL 10/26/2024 5:09 AM EDT [facility] Blood, Arterial 10/26/2024 4 :24 AM EDT 10/26/2024 5:09 AM EDT us Semaj Mcnair III, MD POINT OF CARE TEST ORDERABLES Final Result Performing Organization Address [facility] Co de Phone Number [facility] [address] * POC Ionized Calcium (10/26/2024 4:24 AM EDT) POC Ionized Calcium 5.20 4.50 - 5.30 mg/dL 10/26/2024 5:09 AM EDT [facility] Blood, Arterial 10/26/2024 4 :24 AM EDT 10/26/2024 5:09 AM EDT us Semaj Mcnair III, MD POINT OF CARE TEST ORDERABLES Final Result Performing Organization Address City/[facility]/ZIP Co de Phone Number [facility] [address] * (ABNORMAL) POC Potassium (10/26/2024 4:24 AM EDT) POC Potassium 2.8(LL) 3.5 - 5.3 mmol/L 10/26/2024 5:09 AM EDT [facility] Blood, Arterial 10/26/2024 4 :24 AM EDT 10/26/2024 5:09 AM EDT us Semaj Mcnair III, MD POINT OF CARE TEST ORDERABLES Final Result Performing Organization Address [facility] Co de Phone Number [facility] [address] [facility] [place]. [address] * POC Sodium (10/26/2024 4:24 AM EDT) POC Sodium 139 136 - 146 mmol/L 10/26/2024 5:09 AM EDT [facility] Blood, Arterial 10/26/2024 4 :24 AM EDT 10/26/2024 5:09 AM EDT us Semaj Mcnair III, MD POINT OF CARE TEST ORDERABLES Final Result Performing Organization Address City/[facility] Co de Phone Number [place] [address] [facility] [place]. [address] * POC TCO2 (10/26/2024 4:24 AM EDT) POC TCO2, Arterial 23 23 - 27 mmol/L 10/26/2024 5:09 AM EDT [facility] Blood, Arterial 10/26/2024 4 :24 AM EDT 10/26/2024 5:09 AM EDT us Semaj Mcnair III, MD POINT OF CARE TEST ORDERABLES Final Result Performing Organization Address City/[facility]/ZIP Co de Phone Number [facility] [address] [facility] [place]. [address] * POC O2 SAT (10/26/2024 4:24 AM EDT) POC O2 Saturation, Arterial 96 95 - 98 % 10/26/2024 5:09 AM EDT [facility] Blood, Arterial 10/26/2024 4 :24 AM EDT 10/26/2024 5:09 AM EDT us Semaj Mcnair III, MD POINT OF CARE TEST ORDERABLES Final Result Performing Organization Address [facility] Co de Phone Number [facility] [address] [facility] [place]. [address] * (ABNORMAL) POC Base Excess (10/26/2024 4:24 AM EDT) POC Base Excess, Arterial -5(L) -2 - 3 mmol/L 10/26/2024 5:09 AM EDT [facility] Blood, Arterial 10/26/2024 4 :24 AM EDT 10/26/2024 5:09 AM EDT us Semaj Mcnair III, MD POINT OF CARE TEST ORDERABLES Final Result Performing Organization Address City/[facility]/ZIP Co de Phone Number [facility] [address] [facility] [place]. [address] * POC HCO3 (10/26/2024 4:24 AM EDT) POC HCO3, Arterial 22 22 - 26 mmol/L 10/26/2024 5:09 AM EDT [facility] Blood, Arterial 10/26/2024 4 :24 AM EDT 10/26/2024 5:09 AM EDT us Semaj Mcnair III, MD POINT OF CARE TEST ORDERABLES Final Result [facility] [address] * POC PO2 (10/26/2024 4:24 AM EDT) POC pO2, Arterial 93 80 - 100 mm Hg 10/26/2024 5:09 AM EDT [facility] Blood, Arterial 10/26/2024 4 :24 AM EDT 10/26/2024 5:09 AM EDT us Semaj Mcnair III, MD POINT OF CARE TEST ORDERABLES Final Result Performing Organization Address [facility]/ZIP Co de Phone Number [facility] [address] * POC PCO2 (10/26/2024 4:24 AM EDT) POC pCO2, Arterial 44 35 - 45 mm Hg 10/26/2024 5:09 AM EDT [facility] Blood, Arterial 10/26/2024 4 :24 AM EDT 10/26/2024 5:09 AM EDT us Semaj Mcnair III, MD POINT OF CARE TEST ORDERABLES Final Result Performing Organization Address City/[facility]/ZIP Co de Phone Number [facility] [address] * (ABNORMAL) POC pH (10/26/2024 4:24 AM EDT) POC pH, Arterial 7.30(L) 7.35 - 7.45 10/26/2024 5:09 AM EDT [facility] Blood, Arterial 10/26/2024 4 :24 AM EDT 10/26/2024 5:09 AM EDT us Semaj Mcnair III, MD POINT OF CARE TEST ORDERABLES Final Result [facility] [address] * Transfuse Platelets (10/26/2024 4:14 AM EDT) Ben Blake MD NURSING TREATMENT ORDERABLES - BLOOD ADMIN Final Result * Transfuse Fresh Frozen Plasma (10/26/2024 3:47 AM EDT) Ben Blake MD NURSING TREATMENT ORDERABLES - BLOOD ADMIN Final Result * (ABNORMAL) POC INR (10/26/2024 3:34 AM EDT) Prothrombin Time INR, POC 2.8(H) 0.8 - 1.4 10/27/2024 6:51 AM EDT [facility] Comment: Test results may vary [...] OF CARE TEST ORDERABLES Final Result [facility] [address] [facility] [place]. [address] * POC Sample Type (10/26/2024 3:31 AM EDT) POC Sample Type Arterial 10/26/2024 4:11 AM EDT [facility] Blood, Arterial 10/26/2024 3 :31 AM EDT 10/26/2024 4:11 AM EDT Semaj Mcnair III, MD POINT OF CARE TEST ORDERABLES Final Result [facility] [address] [facility]. [address] * POC Anion Gap (10/26/2024 3:31 AM EDT) POC Anion Gap, Arterial 15 3 - 16 mmol/L 10/26/2024 4:11 AM EDT [facility] Blood, Arterial 10/26/2024 3 :31 AM EDT 10/26/2024 4:11 AM EDT us Semaj Mcnair III, MD POINT OF CARE TEST ORDERABLES Final Result Performing Organization Address City/[facility] Co de Phone Number [facility] [address] [place] [address]. [address] * POC Chloride (10/26/2024 3:31 AM EDT) Pathologist [facility] [place] POC Chloride 105 98 - 110 mmol/L 10/26/2024 4:11 AM EDT [facility] Blood, Arterial 10/26/2024 3 :31 AM EDT 10/26/2024 4:11 AM EDT us Semaj Mcnari III, MD POINT OF CARE TEST ORDERABLES Final Result Performing Organization Address [facility] de Phone Number [facility] [address] [place] [address]. [address] * (ABNORMAL) POC Hemoglobin (10/26/2024 3:31 AM EDT) [facility] POC Hemoglobin 9.7(L) 14.0 - 18.0 g/dL 10/26/2024 4:11 AM EDT [facility] Blood, Arterial 10/26/2024 3 :31 AM EDT 10/26/2024 4:11 AM EDT us Semaj Mcnair III, MD POINT OF CARE TEST ORDERABLES Final Result Performing Organization Address [facility] Co de Phone Number [facility] [address] [place] [address]. [address] * (ABNORMAL) POC hematocrit (10/26/2024 3:31 AM EDT) Pathologist [facility] POC Hematocrit 29.0(L) 40 - 52 % 10/26/2024 4:11 AM EDT [facility] Blood, Arterial 10/26/2024 3 :31 AM EDT 10/26/2024 4:11 AM EDT us Semaj Mcnair III, MD POINT OF CARE TEST ORDERABLES Final Result Performing Organization Address City/[facility]/ZIP Co de Phone Number [facility] [address] * (ABNORMAL) POC Lactate (10/26/2024 3:31 AM EDT) POC Lactate 3.54(H) 0.50 - 2.20 mmol/L 10/26/2024 4:11 AM EDT [facility] Blood, Arterial 10/26/2024 3 :31 AM EDT 10/26/2024 4:11 AM EDT us Semaj Mcnair III, MD POINT OF CARE TEST ORDERABLES Final Result Performing Organization Address [facility] Co de Phone Number [facility] [address] [place]. [address] * (ABNORMAL) POC Glucose (10/26/2024 3:31 AM EDT) POC Glucose, Arterial 153(H) 70 - 100 mg/dL 10/26/2024 4:11 AM EDT [facility] Blood, Arterial 10/26/2024 3 :31 AM EDT 10/26/2024 4:11 AM EDT us Semaj Mcnair III, MD POINT OF CARE TEST ORDERABLES Final Result Performing Organization Address City/[facility] Co de Phone Number [facility] [address] [facility] [place]. [address] * POC Ionized Calcium (10/26/2024 3:31 AM EDT) POC Ionized Calcium 5.10 4.50 - 5.30 mg/dL 10/26/2024 4:11 AM EDT [facility] Blood, Arterial 10/26/2024 3 :31 AM EDT 10/26/2024 4:11 AM EDT us Semaj Mcnair III, MD POINT OF CARE TEST ORDERABLES Final Result Performing Organization Address City/[facility]/ZIP Co de Phone Number [facility] [address] [facility] [place]. [address] * (ABNORMAL) POC Potassium (10/26/2024 3:31 AM EDT) POC Potassium 2.6(LL) 3.5 - 5.3 mmol/L 10/26/2024 4:11 AM EDT [facility] Blood, Arterial 10/26/2024 3 :31 AM EDT 10/26/2024 4:11 AM EDT us Semaj Mcnair III, MD POINT OF CARE TEST ORDERABLES Final Result Performing Organization Address [facility] Co de Phone Number [facility] [address] [facility] [place]. [address] * POC Sodium (10/26/2024 3:31 AM EDT) POC Sodium 138 136 - 146 mmol/L 10/26/2024 4:11 AM EDT [facility] Blood, Arterial 10/26/2024 3 :31 AM EDT 10/26/2024 4:11 AM EDT us Semaj Mcnair III, MD POINT OF CARE TEST ORDERABLES Final Result Performing Organization Address City/[facility] Co de Phone Number [facility] [address] [facility] [place]. [address] * (ABNORMAL) POC TCO2 (10/26/2024 3:31 AM EDT) POC TCO2, Arterial 19(L) 23 - 27 mmol/L 10/26/2024 4:11 AM EDT [facility] Blood, Arterial 10/26/2024 3 :31 AM EDT 10/26/2024 4:11 AM EDT us Semaj Mcnair III, MD POINT OF CARE TEST ORDERABLES Final Result Performing Organization Address City/[facility]/ZIP Co de Phone Number [facility] [address] * POC O2 SAT (10/26/2024 3:31 AM EDT) POC O2 Saturation, Arterial 97 95 - 98 % 10/26/2024 4:11 AM EDT [facility] Blood, Arterial 10/26/2024 3 :31 AM EDT 10/26/2024 4:11 AM EDT us Semaj Mcnair III, MD POINT OF CARE TEST ORDERABLES Final Result Performing Organization Address [facility] Co de Phone Number [facility] [address] * (ABNORMAL) POC Base Excess (10/26/2024 3:31 AM EDT) POC Base Excess, Arterial -9(L) -2 - 3 mmol/L 10/26/2024 4:11 AM EDT [facility] Blood, Arterial 10/26/2024 3 :31 AM EDT 10/26/2024 4:11 AM EDT us Semaj Mcnair III, MD POINT OF CARE TEST ORDERABLES Final Result Performing Organization Address City/[facility]/ZIP Co de Phone Number [facility] [address] [facility] [place]. [address] * (ABNORMAL) POC HCO3 (10/26/2024 3:31 AM EDT) POC HCO3, Arterial 18(L) 22 - 26 mmol/L 10/26/2024 4:11 AM EDT [facility] Blood, Arterial 10/26/2024 3 :31 AM EDT 10/26/2024 4:11 AM EDT us Semaj Mcnair III, MD POINT OF CARE TEST ORDERABLES Final Result Performing Organization Address City/[facility] Co de Phone Number [facility] [address] * (ABNORMAL) POC PO2 (10/26/2024 3:31 AM EDT) POC pO2, Arterial 104(H) 80 - 100 mm Hg 10/26/2024 4:11 AM EDT [facility] Blood, Arterial 10/26/2024 3 :31 AM EDT 10/26/2024 4:11 AM EDT us Semaj Mcnair III, MD POINT OF CARE TEST ORDERABLES Final Result Performing Organization Address [facility] Co de Phone Number [facility] [address] * POC PCO2 (10/26/2024 3:31 AM EDT) POC pCO2, Arterial 42 35 - 45 mm Hg 10/26/2024 4:11 AM EDT [facility] Blood, Arterial 10/26/2024 3 :31 AM EDT 10/26/2024 4:11 AM EDT Semaj Mcnair III, MD POINT OF CARE TEST ORDERABLES Final Result Performing Organization Address City/[facility] Co de Phone Number [facility] [address] [facility] [place]. [address] * (ABNORMAL) POC pH (10/26/2024 3:31 AM EDT) POC pH, Arterial 7.24(L) 7.35 - 7.45 10/26/2024 4:11 AM EDT [facility] Blood, Arterial 10/26/2024 3 :31 AM EDT 10/26/2024 4:11 AM EDT us Semaj Mcnair III, MD POINT OF CARE TEST ORDERABLES Final Result Performing Organization Address [facility] Co de Phone Number [facility] [address] * (ABNORMAL) TEG-Global With Lysis (Baseline TEG with LY30, Will NOT Show Heparin Effect) (53:31 AM EDT) Citrated Kaolin Reaction Time (TEGLYSIS) 6.8 4.6 - 9.1 minutes 10/26/2024 5:02 AM EDT [facility] Citrated Rapid Teg Maximum Amplitude (TEGLYSIS) <40.0(L) 52.0 - 70.0 mm 10/26/2024 5:02 AM EDT [facility] Citrated Functional Fibrinogen Maximum Amplitude (TEGLYSIS) <4.0(L) 15.0 - 32.0 mm 10/26/2024 5:02 AM EDT [facility] Citrated Kaolin Percent Lysis (TEGLYSIS) 1.4 0.0 - 2.6 % 10/26/2024 5:02 AM EDT [facility] Whole Blood (Citrate) 10/26/2024 3:31 AM EDT 10/26/2024 3:40 AM EDT us Eber Quinones MD LAB BLOOD ORDERABLES Fin al Result Performing Organization Address [facility] Co de Phone Number [facility] [address] [facility] * (ABNORMAL) CBC (10/26/2024 3:31 AM EDT) WBC 9.5 3.8 - 10.8 10E3/uL 10/26/2024 3:48 AM EDT [facility] RBC 3.68(L) 4.20 - 5.80 10E6/uL 10/26/2024 3:48 AM EDT [facility] Hemoglobin 11.5(L) 13.2 - 17.1 g/dL 10/26/2024 3:48 AM EDT [facility] Hematocrit 33.0(L) 38.5 - 50.0 % 10/26/2024 3:48 AM EDT [facility] MCV 89.6 80.0 - 100.0 fL 10/26/2024 3:48 AM EDT [facility] MCH 31.1 27.0 - 33.0 pg 10/26/2024 3:48 AM EDT [facility] MCHC 34.8 32.0 - 36.0 g/dL 10/26/2024 3:48 AM EDT [facility] RDW 19.3(H) 11.0 - 15.0 % 10/26/2024 3:48 AM EDT [facility] Platelets 67(L) 140 - 400 10E3/uL 10/26/2024 3:48 AM EDT [facility] MPV 7.9 7.5 - 11.5 fL 10/26/2024 3:48 AM EDT [facility] Whole Blood 10/26/2024 3:31 AM EDT 10/26/2024 3:40 AM EDT us Eber Quinones MD LAB BLOOD ORDERABLES Fin al Result [facility] [address] * (ABNORMAL) Protime-INR (10/26/2024 3:31 AM EDT) Protime 27.0(H) 12.1 - 15.1 seconds 10/26/2024 3:51 AM EDT [facility] INR 2.4(H) 0.9 - 1.1 10/26/2024 3:51 AM EDT [facility] Comment: RECOMMENDED THERAPEUTIC RANGES USING INR : Stable oral anticoagulant therapy: 2.0 - 3.0 Mechanical prosthetic heart valve: 2.5 - 3.5 Recurrent acute myocardial infarction: 2.5 - 3.5 Plasma 10/26/2024 3:31 AM EDT 10/26/2024 3:40 AM EDT us Eber Quinones MD LAB BLOOD ORDERABLES Fin al Result [facility] [address] [facility] * (ABNORMAL) Fibrinogen (10/26/2024 3:31 AM EDT) Fibrinogen 104(L) 218 - 406 mg/dL 10/26/2024 3:56 AM EDT [facility] Plasma 10/26/2024 3:31 AM EDT 10/26/2024 3:40 AM EDT Eber Quinones MD LAB BLOOD ORDERABLES Fin al Result Performing Organization Address [facility] Co de Phone Number [facility] [address] [facility] * Transfuse Fresh Frozen Plasma (10/26/2024 [...] Frozen Plasma (10/26/2024 2:03 AM EDT) Result [facility] Ben Blake MD NURSING TREATMENT ORDERABLES - BLOOD ADMIN Final Result * Transfuse RBC (10/26/2024 2:01 AM EDT) Result [facility] Ben Blake MD NURSING TREATMENT ORDERABLES - BLOOD ADMIN Final Result * Transfuse RBC (10/26/2024 1:45 AM EDT) Result [facility] Ben Blake MD NURSING TREATMENT ORDERABLES - BLOOD ADMIN Final Result * Transfuse RBC (10/26/2024 1:45 AM EDT) Result [facility] Ben Blake MD NURSING TREATMENT ORDERABLES - BLOOD ADMIN Final Result * (ABNORMAL) POC INR (10/26/2024 1:43 AM EDT) [facility] Signature Prothrombin Time INR, POC 1.9(H) 0.8 [...] AM EDT 10/27/2024 6:51 AM EDT Result [facility] Semaj Mcnair III, MD POINT OF CARE TEST ORDERABLES Final Result [facility] [address] [place] [address], [facility] * Transfuse Fresh Frozen Plasma (10/26/2024 1:41 AM EDT) Result [facility] Ben Blake MD NURSING TREATMENT ORDERABLES - BLOOD ADMIN Final Result * Transfuse RBC (10/26/2024 1:40 AM EDT) Result [facility] Ben Blake MD NURSING TREATMENT ORDERABLES - BLOOD ADMIN Final Result * POC Sample Type (10/26/2024 1:40 AM EDT) [facility] POC Sample Type Arterial 10/26/2024 2:32 AM EDT [facility] Blood, Arterial 10/26/2024 1 :40 AM EDT 10/26/2024 2:32 AM EDT us Semaj Mcnair III, MD POINT OF CARE TEST ORDERABLES Final Result [facility] [address] [place] [address]. [address] * POC Anion Gap (10/26/2024 1:40 AM EDT) [facility] POC Anion Gap, Arterial 13 3 - 16 mmol/L 10/26/2024 2:32 AM EDT [facility] Blood, Arterial 10/26/2024 1 :40 AM EDT 10/26/2024 2:32 AM EDT us Semaj Mcnair III, MD POINT OF CARE TEST ORDERABLES Final Result Performing Organization Address [facility] Co de Phone Number [facility] [address] * POC Chloride (10/26/2024 1:40 AM EDT) [facility] POC Chloride 104 98 - 110 mmol/L 10/26/2024 2:32 AM EDT [facility] Blood, Arterial 10/26/2024 1 :40 AM EDT 10/26/2024 2:32 AM EDT us Semaj Mcnair III, MD POINT OF CARE TEST ORDERABLES Final Result Performing Organization Address City/[facility] Co de Phone Number [facility] [address] * (ABNORMAL) POC Hemoglobin (10/26/2024 1:40 AM EDT) [facility] POC Hemoglobin 7.4(L) 14.0 - 18.0 g/dL 10/26/2024 2:32 AM EDT [facility] Blood, Arterial 10/26/2024 1 :40 AM EDT 10/26/2024 2:32 AM EDT us Semaj Mcnair III, MD POINT OF CARE TEST ORDERABLES Final Result Performing Organization Address City/[facility]/ZIP Co de Phone Number [facility] [place]. [address] * (ABNORMAL) POC hematocrit (10/26/2024 1:40 AM EDT) POC Hematocrit 22.0(L) 40 - 52 % 10/26/2024 2:32 AM EDT [facility] Blood, Arterial 10/26/2024 1 :40 AM EDT 10/26/2024 2:32 AM EDT us Semaj Mcnair III, MD POINT OF CARE TEST ORDERABLES Final Result Performing Organization Address [facility] Co de Phone Number [facility] [address] [facility] [place]. [address] * (ABNORMAL) POC Lactate (10/26/2024 1:40 AM EDT) POC Lactate 2.30(H) 0.50 - 2.20 mmol/L 10/26/2024 2:32 AM EDT [facility] Blood, Arterial 10/26/2024 1 :40 AM EDT 10/26/2024 2:32 AM EDT us Semaj Mcnair III, MD POINT OF CARE TEST ORDERABLES Final Result Performing Organization Address City/[facility] Co de Phone Number [facility] [address] [facility] [place]. [address] * (ABNORMAL) POC Glucose (10/26/2024 1:40 AM EDT) POC Glucose, Arterial 116(H) 70 - 100 mg/dL 10/26/2024 2:32 AM EDT [facility] Blood, Arterial 10/26/2024 1 :40 AM EDT 10/26/2024 2:32 AM EDT us Semaj Mcnair III, MD POINT OF CARE TEST ORDERABLES Final Result Performing Organization Address City/[facility] Co de Phone Number [facility] [address] [place] [address]. [address] * (ABNORMAL) POC Ionized Calcium (10/26/2024 1:40 AM EDT) POC Ionized Calcium 4.10(L) 4.50 - 5.30 mg/dL 10/26/2024 2:32 AM EDT [facility] Blood, Arterial 10/26/2024 1 :40 AM EDT 10/26/2024 2:32 AM EDT us Semaj Mcnair III, MD POINT OF CARE TEST ORDERABLES Final Result Performing Organization Address [facility] Co de Phone Number [facility] [address] [facility] [place]. [address] * (ABNORMAL) POC Potassium (10/26/2024 1:40 AM EDT) POC Potassium 2.6(LL) 3.5 - 5.3 mmol/L 10/26/2024 2:32 AM EDT [facility] Blood, Arterial 10/26/2024 1 :40 AM EDT 10/26/2024 2:32 AM EDT us Semaj Mcnair III, MD POINT OF CARE TEST ORDERABLES Final Result Performing Organization Address City/[facility] Co de Phone Number [facility] [address] [facility] [place]. [address] * (ABNORMAL) POC Sodium (10/26/2024 1:40 AM EDT) POC Sodium 135(L) 136 - 146 mmol/L 10/26/2024 2:32 AM EDT [facility] Blood, Arterial 10/26/2024 1 :40 AM EDT 10/26/2024 2:32 AM EDT us Semaj Mcnair III, MD POINT OF CARE TEST ORDERABLES Final Result Performing Organization Address City/[facility] Co de Phone Number [facility] [address] [facility]. [address] * (ABNORMAL) POC TCO2 (10/26/2024 1:40 AM EDT) POC TCO2, Arterial 19(L) 23 - 27 mmol/L 10/26/2024 2:32 AM EDT [facility] Blood, Arterial 10/26/2024 1 :40 AM EDT 10/26/2024 2:32 AM EDT Semaj Mcnair III, MD POINT OF CARE TEST ORDERABLES Final Result Performing Organization Address [facility] Co de Phone Number [facility] [address] [facility] [place]. [address] * (ABNORMAL) POC O2 SAT (10/26/2024 1:40 AM EDT) POC O2 Saturation, Arterial 99(H) 95 - 98 % 10/26/2024 2:32 AM EDT [facility] Blood, Arterial 10/26/2024 1 :40 AM EDT 10/26/2024 2:32 AM EDT Semaj Mcnair III, MD POINT OF CARE TEST ORDERABLES Final Result Performing Organization Address City/[facility] Co de Phone Number [facility] [address] [facility] [place]. [address] * (ABNORMAL) POC Base Excess (10/26/2024 1:40 AM EDT) POC Base Excess, Arterial -7(L) -2 - 3 mmol/L 10/26/2024 2:32 AM EDT [facility] Blood, Arterial 10/26/2024 1 :40 AM EDT 10/26/2024 2:32 AM EDT us Semaj Mcnair III, MD POINT OF CARE TEST ORDERABLES Final Result [facility] [address] [facility] [place]. [address] * (ABNORMAL) POC HCO3 (10/26/2024 1:40 AM EDT) POC HCO3, Arterial 18(L) 22 - 26 mmol/L 10/26/2024 2:32 AM EDT [facility] Blood, Arterial 10/26/2024 1 :40 AM EDT 10/26/2024 2:32 AM EDT us Semaj Mcnair III, MD POINT OF CARE TEST ORDERABLES Final Result Performing Organization Address [facility]/ZIP Co de Phone Number [facility] [address] * (ABNORMAL) POC PO2 (10/26/2024 1:40 AM EDT) POC pO2, Arterial 145(H) 80 - 100 mm Hg 10/26/2024 2:32 AM EDT [facility] Blood, Arterial 10/26/2024 1 :40 AM EDT 10/26/2024 2:32 AM EDT us Semaj Mcnair III, MD POINT OF CARE TEST ORDERABLES Final Result [facility] [address] [facility] [place]. [address] * (ABNORMAL) POC PCO2 (10/26/2024 1:40 AM EDT) POC pCO2, Arterial 33(L) 35 - 45 mm Hg 10/26/2024 2:32 AM EDT [facility] Blood, Arterial 10/26/2024 1 :40 AM EDT 10/26/2024 2:32 AM EDT us Semaj Mcnair III, MD POINT OF CARE TEST ORDERABLES Final Result Performing Organization Address [facility] Co de Phone Number [facility] [address] * POC pH (10/26/2024 1:40 AM EDT) POC pH, Arterial 7.35 7.35 - 7.45 10/26/2024 2:32 AM EDT [facility] Blood, Arterial 10/26/2024 1 :40 AM EDT 10/26/2024 2:32 AM EDT us Semaj Mcnair III, MD POINT OF CARE TEST ORDERABLES Final Result Performing Organization Address [facility] Co de Phone Number [facility] [address] * Transfuse Fresh Frozen Plasma (10/26/2024 1:20 AM EDT) Result [facility] Ben Blake MD NURSING TREATMENT ORDERABLES - BLOOD ADMIN Final Result * Transfuse RBC (10/26/2024 12:56 AM EDT) Result [facility] Ben Blake MD NURSING TREATMENT ORDERABLES - BLOOD ADMIN Final Result * (ABNORMAL) POC INR (10/26/2024 12:41 AM EDT) Prothrombin Time INR, POC 2.0(H) 0.8 - 1.4 10/27/2024 6:51 AM EDT [facility] Comment: Test results may vary using different testing platforms. Serial result monitoring should be performed using the same methodology. RECOMMENDED THERAPEUTIC RANGES USING INR : Stable oral anticoagulant therapy: 2.0 - 3.0 Mechanical prosthetic heart valve: 2.5 - 3.5 Recurrent acute myocardial infarction: 2.5 - 3.5 Blood 10/26/2024 12:4 1 AM EDT 10/27/2024 6:51 AM EDT us Semja Mcnair III, MD POINT OF CARE TEST ORDERABLES Final Result Performing Organization Address City/[facility] Co de Phone Number [facility] [address] [place] [address]. [address] * POC Sample Type (10/26/2024 12:39 AM EDT) POC Sample Type Arterial 10/26/2024 1:38 AM EDT [facility] Blood, Arterial 10/26/2024 1 2:39 AM EDT 10/26/2024 1:38 AM EDT us Semaj Mcnair III, MD POINT OF CARE TEST ORDERABLES Final Result Performing Organization Address [facility] Co de Phone Number [facility] [address] [place] [address]. [address] * POC Anion Gap (10/26/2024 12:39 AM EDT) POC Anion Gap, Arterial 13 3 - 16 mmol/L 10/26/2024 1:38 AM EDT [facility] Blood, Arterial 10/26/2024 1 2:39 AM EDT 10/26/2024 1:38 AM EDT us Semaj Mcnair III, MD POINT OF CARE TEST ORDERABLES Final Result Performing Organization Address City/[facility] Co de Phone Number [facility] [address] [place] [address]. [address] * POC Chloride (10/26/2024 12:39 AM EDT) POC Chloride 103 98 - 110 mmol/L 10/26/2024 1:38 AM EDT [facility] Blood, Arterial 10/26/2024 1 2:39 AM EDT 10/26/2024 1:38 AM EDT us Semaj Mcnair III, MD POINT OF CARE TEST ORDERABLES Final Result Performing Organization Address City/[facility]/ZIP Co de Phone Number [facility] [address] [facility] [place]. [address] * (ABNORMAL) POC Hemoglobin (10/26/2024 12:39 AM EDT) POC Hemoglobin 7.9(L) 14.0 - 18.0 g/dL 10/26/2024 1:38 AM EDT [facility] Blood, Arterial 10/26/2024 1 2:39 AM EDT 10/26/2024 1:38 AM EDT Semaj Mcnair III, MD POINT OF CARE TEST ORDERABLES Final Result Performing Organization Address [facility] Co de Phone Number [facility] [address] [facility] [place]. [address] * (ABNORMAL) POC hematocrit (10/26/2024 12:39 AM EDT) Pathologist [facility] POC Hematocrit 23.0(L) 40 - 52 % 10/26/2024 1:38 AM EDT [facility] Blood, Arterial 10/26/2024 1 2:39 AM EDT 10/26/2024 1:38 AM EDT us Semaj Mcnair III, MD POINT OF CARE TEST ORDERABLES Final Result Performing Organization Address City/[facility] Co de Phone Number [facility] [address] [facility] [place]. [address] * POC Lactate (10/26/2024 12:39 AM EDT) POC Lactate 1.39 0.50 - 2.20 mmol/L 10/26/2024 1:38 AM EDT [facility] Blood, Arterial 10/26/2024 1 2:39 AM EDT 10/26/2024 1:38 AM EDT us Semaj Mcnair III, MD POINT OF CARE TEST ORDERABLES Final Result Performing Organization Address [facility] Co de Phone Number [facility] [address] [facility] [place]. [address] * (ABNORMAL) POC Glucose (10/26/2024 12:39 AM EDT) POC Glucose, Arterial 116(H) 70 - 100 mg/dL 10/26/2024 1:38 AM EDT [facility] Blood, Arterial 10/26/2024 1 2:39 AM EDT 10/26/2024 1:38 AM EDT us Semaj Mcnair III, MD POINT OF CARE TEST ORDERABLES Final Result Performing Organization Address [facility] Co de Phone Number [facility] [address] [facility]. [address] * (ABNORMAL) POC Ionized Calcium (10/26/2024 12:39 AM EDT) Pathologist [facility] POC Ionized Calcium 4.30(L) 4.50 - 5.30 mg/dL 10/26/2024 1:38 AM EDT [facility] Blood, Arterial 10/26/2024 1 2:39 AM EDT 10/26/2024 1:38 AM EDT us Semaj Mcnair III, MD POINT OF CARE TEST ORDERABLES Final Result Performing Organization Address City/[facility] Co de Phone Number [facility] [address] [facility] [place]. [address] * (ABNORMAL) POC Potassium (10/26/2024 12:39 AM EDT) POC Potassium 2.4(LL) 3.5 - 5.3 mmol/L 10/26/2024 1:38 AM EDT [facility] Blood, Arterial 10/26/2024 1 2:39 AM EDT 10/26/2024 1:38 AM EDT us Semaj Mcnair III, MD POINT OF CARE TEST ORDERABLES Final Result Performing Organization Address [facility] Co de Phone Number [facility] [address] * POC Sodium (10/26/2024 12:39 AM EDT) POC Sodium 136 136 - 146 mmol/L 10/26/2024 1:38 AM EDT [facility] Blood, Arterial 10/26/2024 1 2:39 AM EDT 10/26/2024 1:38 AM EDT us Semaj Mcnair III, MD POINT OF CARE TEST ORDERABLES Final Result Performing Organization Address [facility] Co de Phone Number [facility] [address] [facility] [place]. [address] * (ABNORMAL) POC TCO2 (10/26/2024 12:39 AM EDT) POC TCO2, Arterial 21(L) 23 - 27 mmol/L 10/26/2024 1:38 AM EDT [facility] Blood, Arterial 10/26/2024 1 2:39 AM EDT 10/26/2024 1:38 AM EDT us Semaj Mcnair III, MD POINT OF CARE TEST ORDERABLES Final Result Performing Organization Address City/[facility] Co de Phone Number [facility] [address] [facility] [place]. [address] * POC O2 SAT (10/26/2024 12:39 AM EDT) POC O2 Saturation, Arterial 98 95 - 98 % 10/26/2024 1:38 AM EDT [facility] Blood, Arterial 10/26/2024 1 2:39 AM EDT 10/26/2024 1:38 AM EDT us Semaj Mcnair III, MD POINT OF CARE TEST ORDERABLES Final Result Performing Organization Address City/State/[facility] Co de Phone Number [facility] [address] * (ABNORMAL) POC Base Excess (10/26/2024 12:39 AM EDT) POC Base Excess, Arterial -7(L) -2 - 3 mmol/L 10/26/2024 1:38 AM EDT [facility] Blood, Arterial 10/26/2024 1 2:39 AM EDT 10/26/2024 1:38 AM EDT us Semaj Mcnair III, MD POINT OF CARE TEST ORDERABLES Final Result Performing Organization Address [facility] Co de Phone Number [facility] [address] * (ABNORMAL) POC HCO3 (10/26/2024 12:39 AM EDT) POC HCO3, Arterial 20(L) 22 - 26 mmol/L 10/26/2024 1:38 AM EDT [facility] Blood, Arterial 10/26/2024 1 2:39 AM EDT 10/26/2024 1:38 AM EDT us Semaj Mcnair III, MD POINT OF CARE TEST ORDERABLES Final Result Performing Organization Address [facility] Co de Phone Number [facility] [address] [facility] [place]. [address] * (ABNORMAL) POC PO2 (10/26/2024 12:39 AM EDT) POC pO2, Arterial 117(H) 80 - 100 mm Hg 10/26/2024 1:38 AM EDT [facility] Blood, Arterial 10/26/2024 1 2:39 AM EDT 10/26/2024 1:38 AM EDT us Semaj Mcnair III, MD POINT OF CARE TEST ORDERABLES Final Result [facility] [address] * (ABNORMAL) POC PCO2 (10/26/2024 12:39 AM EDT) POC pCO2, Arterial 46(H) 35 - 45 mm Hg 10/26/2024 1:38 AM EDT [facility] Blood, Arterial 10/26/2024 1 2:39 AM EDT 10/26/2024 1:38 AM EDT Semaj Mcnair III, MD POINT OF CARE TEST ORDERABLES Final Result Performing Organization Address [facility] Co de Phone Number [facility] [address] * (ABNORMAL) POC pH (10/26/2024 12:39 AM EDT) POC pH, Arterial 7.24(L) 7.35 - 7.45 10/26/2024 1:38 AM EDT [facility] Blood, Arterial 10/26/2024 1 2:39 AM EDT 10/26/2024 1:38 AM EDT Semaj Mcnair III, MD POINT OF CARE TEST ORDERABLES Final Result Performing Organization Address [facility] Co de Phone Number [facility] [address] * Transfuse Platelets (10/26/2024 12:37 AM [...] AM EDT) Gram Stain Result Cytospin Results: [facility] Gram Stain Result Polymorphonuclear Leukocytes Seen; [facility] Gram Stain Result No Organisms Seen; [facility] Culture Result No Growth After 3 Days [facility] Surgical Swab ABDOMEN / Unknown 12:03 AM EDT Comment:2.) Ascites Anaerobhic culture Fungus culture Routine culture plus stain Narrative [facility] - 10/28/2024 9:38 PM EDT 2.) Ascites Anaerobhic culture Fungus culture Routine culture plus stain 2.) Ascites Semaj Mcnair III, MD MICROBIOLOGY - GENE RAL ORDERABLES Final Result Performing Organization Address City/State/[facility] Co de Phone Number [facility] [address] * Surgical Pathology Exam (10/26/2024 12:00 AM EDT) 10/26/2024 10/27/2024 Narrative [facility] - 10/26/2024 12:00 AM EDT CASE: [id number] PATIENT: BLAIR GILBERT Clinical History: Liver - kidney transplant Pre-Operative Diagnosis: Alcoholic cirrhosis of liver Post-Operative Diagnosis: Alcoholic cirrhosis of liver Specimen(s) Submitted: A. [place] liver CPT Code(s): 44313 X 1; 30981 X 5 Additional Information: FINAL DIAGNOSIS: A. 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 - Negative for neoplasm. - Increased hepatocellular iron deposition (3+; Modified Scheuer). Gall bladder: -Intramucosal and submucosal vascular congestion and hemorrhage. - Negative for dysplasia or malignancy. Gross Description: Received in formalin, labeled Blair Gilbert and [place] liver , is a 2338-gram, hepatectomy specimen [...] discrete masses or other lesions are identified. Baseball Pitcher sections are submitted in cassettes [id number] as follows: A1: Hilar margins, en face. [...] Pathologist signing this report is located at [facility], [address] [place] [address], [place], [place], [facility], , CLIA ID: [id number] us Semaj Mcnair III, MD PATHOLOGY/CYTOLOGY ORDERABLES Final Result [facility] * Transfuse Fresh Frozen Plasma (10/25/2024 11:47 PM EDT) Result [facility] Ben Blake MD NURSING TREATMENT ORDERABLES - BLOOD ADMIN Final Result * Transfuse RBC (10/25/2024 11:45 PM EDT) Result [facility] Ben Blake MD NURSING TREATMENT ORDERABLES - BLOOD ADMIN Final Result * Transfuse RBC (10/25/2024 11:45 PM EDT) Result [facility] Ben Blake MD NURSING TREATMENT ORDERABLES - BLOOD ADMIN Final Result * (ABNORMAL) POC INR (10/25/2024 11:43 PM EDT) Prothrombin Time INR, POC 1.7(H) 0.8 - 1.4 10/27/2024 6:51 AM EDT [facility] Comment: Test results may vary using different testing platforms. Serial result monitoring should be performed using the same methodology. RECOMMENDED THERAPEUTIC RANGES USING INR : Stable oral anticoagulant therapy: 2.0 - 3.0 Mechanical prosthetic heart valve: 2.5 - 3.5 Recurrent acute myocardial infarction: 2.5 - 3.5 Blood 10/25/2024 11:4 3 PM EDT 10/27/2024 6:51 AM EDT Smeaj Mcnair III, MD POINT OF CARE TEST ORDERABLES Final Result [facility] [address] * POC Sample Type (10/25/2024 11:40 PM EDT) POC Sample Type Arterial 10/25/2024 11:57 PM EDT [facility] Blood, Arterial 10/25/2024 1 1:40 PM EDT 10/25/2024 11:57 PM EDT us Semaj Mcnair III, MD POINT OF CARE TEST ORDERABLES Final Result Performing Organization Address City/[facility]/ZIP Co de Phone Number [facility] [address] * POC Anion Gap (10/25/2024 11:40 PM EDT) POC Anion Gap, Arterial 13 3 - 16 mmol/L 10/25/2024 11:57 PM EDT [facility] Blood, Arterial 10/25/2024 1 1:40 PM EDT 10/25/2024 11:57 PM EDT us Semaj Mcnair III, MD POINT OF CARE TEST ORDERABLES Final Result Performing Organization Address [facility] Co de Phone Number [facility] [address] [facility] [place]. [address] * POC Chloride (10/25/2024 11:40 PM EDT) POC Chloride 102 98 - 110 mmol/L 10/25/2024 11:57 PM EDT [facility] Blood, Arterial 10/25/2024 1 1:40 PM EDT 10/25/2024 11:57 PM EDT us Semaj Mcnair III, MD POINT OF CARE TEST ORDERABLES Final Result Performing Organization Address [facility] Co de Phone Number [facility] [address] [facility] [place]. [address] * (ABNORMAL) POC Hemoglobin (10/25/2024 11:40 PM EDT) POC Hemoglobin 6.6(L) 14.0 - 18.0 g/dL 10/25/2024 11:57 PM EDT [facility] Blood, Arterial 10/25/2024 1 1:40 PM EDT 10/25/2024 11:57 PM EDT us Semaj Mcnair III, MD POINT OF CARE TEST ORDERABLES Final Result [facility] [address] * (ABNORMAL) POC hematocrit (10/25/2024 11:40 PM EDT) POC Hematocrit 19.0(L) 40 - 52 % 10/25/2024 11:57 PM EDT [facility] Blood, Arterial 10/25/2024 1 1:40 PM EDT 10/25/2024 11:57 PM EDT us Semaj Mcnair III, MD POINT OF CARE TEST ORDERABLES Final Result Performing Organization Address [facility] Co de Phone Number [facility] [address] * POC Lactate (10/25/2024 11:40 PM EDT) POC Lactate 1.36 0.50 - 2.20 mmol/L 10/25/2024 11:57 PM EDT [facility] Blood, Arterial 10/25/2024 1 1:40 PM EDT 10/25/2024 11:57 PM EDT us Semaj Mcnair III, MD POINT OF CARE TEST ORDERABLES Final Result Performing Organization Address [facility] Co de Phone Number [facility] [address] [facility] [place]. [address] * (ABNORMAL) POC Glucose (10/25/2024 11:40 PM EDT) POC Glucose, Arterial 101(H) 70 - 100 mg/dL 10/25/2024 11:57 PM EDT [facility] Blood, Arterial 10/25/2024 1 1:40 PM EDT 10/25/2024 11:57 PM EDT us Semaj Mcnair III, MD POINT OF CARE TEST ORDERABLES Final Result Performing Organization Address City/[facility]/ZIP Co de Phone Number [facility] [address] * POC Ionized Calcium (10/25/2024 11:40 PM EDT) POC Ionized Calcium 4.50 4.50 - 5.30 mg/dL 10/25/2024 11:57 PM EDT [facility] Blood, Arterial 10/25/2024 1 1:40 PM EDT 10/25/2024 11:57 PM EDT us Semaj Mcnair III, MD POINT OF CARE TEST ORDERABLES Final Result [facility] [address] * (ABNORMAL) POC Potassium (10/25/2024 11:40 PM EDT) POC Potassium 1.9(LL) 3.5 - 5.3 mmol/L 10/25/2024 11:57 PM EDT [facility] Blood, Arterial 10/25/2024 1 1:40 PM EDT 10/25/2024 11:57 PM EDT us Semaj Mcnair III, MD POINT OF CARE TEST ORDERABLES Final Result Performing Organization Address City/[facility]/ZIP Co de Phone Number [facility] [address] * (ABNORMAL) POC Sodium (10/25/2024 11:40 PM EDT) POC Sodium 135(L) 136 - 146 mmol/L 10/25/2024 11:57 PM EDT [facility] Blood, Arterial 10/25/2024 1 1:40 PM EDT 10/25/2024 11:57 PM EDT us Semaj Mcnair III, MD POINT OF CARE TEST ORDERABLES Final Result [facility] [address] * (ABNORMAL) POC TCO2 (10/25/2024 11:40 PM EDT) POC TCO2, Arterial 21(L) 23 - 27 mmol/L 10/25/2024 11:57 PM EDT [facility] Blood, Arterial 10/25/2024 1 1:40 PM EDT 10/25/2024 11:57 PM EDT us Semaj Mcnair III, MD POINT OF CARE TEST ORDERABLES Final Result [facility] [address] * POC O2 SAT (10/25/2024 11:40 PM EDT) POC O2 Saturation, Arterial 98 95 - 98 % 10/25/2024 11:57 PM EDT [facility] Blood, Arterial 10/25/2024 1 1:40 PM EDT 10/25/2024 11:57 PM EDT us Semaj Mcnair III, MD POINT OF CARE TEST ORDERABLES Final Result [facility] [address] * (ABNORMAL) POC Base Excess (10/25/2024 11:40 PM EDT) POC Base Excess, Arterial -6(L) -2 - 3 mmol/L 10/25/2024 11:57 PM EDT [facility] Blood, Arterial 10/25/2024 1 1:40 PM EDT 10/25/2024 11:57 PM EDT Semaj Mcnair III, MD POINT OF CARE TEST ORDERABLES Final Result [facility] [address] * (ABNORMAL) POC HCO3 (10/25/2024 11:40 PM EDT) POC HCO3, Arterial 20(L) 22 - 26 mmol/L 10/25/2024 11:57 PM EDT [facility] Blood, Arterial 10/25/2024 1 1:40 PM EDT 10/25/2024 11:57 PM EDT Semaj Mcnair III, MD POINT OF CARE TEST ORDERABLES Final Result [facility] [address] [facility]. [address] * (ABNORMAL) POC PO2 (10/25/2024 11:40 PM EDT) POC pO2, Arterial 107(H) 80 - 100 mm Hg 10/25/2024 11:57 PM EDT [facility] Blood, Arterial 10/25/2024 1 1:40 PM EDT 10/25/2024 11:57 PM EDT Semaj Mcnair III, MD POINT OF CARE TEST ORDERABLES Final Result [facility] [address] [facility] [place]. [address] * POC PCO2 (10/25/2024 11:40 PM EDT) POC pCO2, Arterial 41 35 - 45 mm Hg 10/25/2024 11:57 PM EDT [facility] Blood, Arterial 10/25/2024 1 1:40 PM EDT 10/25/2024 11:57 PM EDT Semaj Mcnair III, MD POINT OF CARE TEST ORDERABLES Final Result [facility] [address] * (ABNORMAL) POC pH (10/25/2024 11:40 PM EDT) POC pH, Arterial 7.29(L) 7.35 - 7.45 10/25/2024 11:57 PM EDT [facility] Blood, Arterial 10/25/2024 1 1:40 PM EDT 10/25/2024 11:57 PM EDT us Semaj Mcnair III, MD POINT OF CARE TEST ORDERABLES Final Result Performing Organization Address City/[facility]/ZIP Co de Phone Number [facility] [address] [facility]. [address] * Urine culture (10/25/2024 11:08 PM EDT) Culture Result <1,000 cfu/mL [facility] Culture Result Skin/Urogeni rony Mckayla. No Further Workup. [facility] Newly Placed Berkowitz Urine URINE SPECIMEN / Unknown 10/25/2024 11:08 PM EDT Comment:urine culture Narrative [facility] - 10/28/2024 9:59 AM EDT urine culture urine culture us Semaj Mcnair III, MD MICROBIOLOGY - GENE RAL ORDERABLES Final Result Performing Organization Address [facility] Co de Phone Number [facility] [address] [facility]. [address] * X-ray Portable Chest (10/25/2024 10:19 [...] - 2.2 mmol/L 10/25/2024 10:39 PM EDT [facility] Plasma 10/25/2024 10:1 7 PM EDT 10/25/2024 10:17 PM EDT Ben Blake MD LAB BLOOD ORDERABLES Final Re sult [facility] [address] * (ABNORMAL) Ferritin (10/25/2024 10:17 PM EDT) Ferritin 623.2(H) 23.9 - 336.2 ng/mL 10/25/2024 11:02 PM EDT [facility] Serum 10/25/2024 10:1 7 PM EDT 10/25/2024 10:17 PM EDT Leandra Og MD LAB BLOOD ORDERABLES F inal Result [facility] [address] [facility]. [address] * Iron Studies (Iron + TIBC) (10/25/2024 10:17 PM EDT) Iron 128 50 - 212 ug/dL 10/25/2024 10:44 PM EDT [facility] % Iron Saturation SEE COMMENT 15.0 - 55.0 % 10/25/2024 10:44 PM EDT [facility] Comment:Unable to calculate result because contributing result outside reportable range.. TIBC SEE COMMENT 261 - 462 ug/dL 10/25/2024 10:44 PM EDT [facility] Comment:Unable to calculate result because contributing result outside reportable range.. Serum 10/25/2024 10:1 7 PM EDT 10/25/2024 10:17 PM EDT Leandra Og MD LAB BLOOD ORDERABLES F inal Result [facility] [address] [facility]. [address] * PTH (10/25/2024 10:17 PM EDT) PTH 36.0 12.0 - 88.0 pg/mL 10/25/2024 11:01 PM EDT [facility] Serum 10/25/2024 10:1 7 PM EDT 10/25/2024 10:17 PM EDT Leandra Og MD LAB BLOOD ORDERABLES F inal Result [facility] [address] [facility]. [address] * HIV 1+2 Antibody/Antigen with Reflex (10/25/2024 10:17 PM EDT) HIV 1+2 AB/AGN Nonreactive Nonreactive 10/25/2024 11:03 PM EDT [facility] Serum 10/25/2024 10:1 7 PM EDT 10/25/2024 10:16 PM EDT Narrative [facility] - 10/25/2024 11:03 PM EDT \HIVRNR Leandra Og MD LAB BLOOD ORDERABLES F inal Result Performing Organization Address City/[facility]/ZIP Co de Phone Number [facility] [address] [facility]. [address] * Hepatitis B Core Antibody (10/25/2024 10:17 PM EDT) Pathologist [facility] Hep B Core Total Ab Nonreactive Nonreactive 10/25/2024 11:07 PM EDT [facility] Comment:Health Department no tified in accordance with reportable infectious disease guidelines. Serum 10/25/2024 10:1 7 PM EDT 10/25/2024 10:17 PM EDT Narrative [facility] - 10/25/2024 11:07 PM EDT A nonreactive final interpretation indicates that anti-HBc antibodies were not detected in the sample; it is possible that the individual is not infected with HBV. Leandra Og MD LAB BLOOD ORDERABLES F inal Result [facility] [address] [facility] * Hepatitis C Antibody (10/25/2024 10:17 PM EDT) HCV Ab Nonreactive Nonreactive 10/25/2024 11:16 PM EDT [facility] Comment:Health Department no tified in accordance with reportable infectious disease guidelines. Serum 10/25/2024 10:1 7 PM EDT 10/25/2024 10:17 PM EDT Narrative [facility] - 10/25/2024 11:16 PM EDT Antibodies to HCV not detected; does not exclude the possibility of exposure to HCV. us Leandra Og MD LAB BLOOD ORDERABLES F inal Result Performing Organization Address City/[facility]/ZIP Co de Phone Number [facility] [address] [facility] * (ABNORMAL) Hepatitis B Surface Antibody, Quantitati (10/25/2024 10:17 PM EDT) HBSAB NUMBER 10.70(H) 0.00 - 9.99 mIU/mL 10/25/2024 11:52 PM EDT [facility] Hep B S Ab Equivocal (A) Nonreactive 10/25/2024 11:52 PM EDT [facility] Serum 10/25/2024 10:1 7 PM EDT 10/25/2024 10:17 PM EDT us Leandra Og MD LAB BLOOD ORDERABLES F inal Result Performing Organization Address City/[facility]/ZIP Co de Phone Number [facility] [address] [facility] * Hepatitis B surface antigen (10/25/2024 10:17 PM EDT) Hep B Surface Ag Nonreactive Nonreactive 10/25/2024 11:12 PM EDT [facility] Comment:Health Department no tified in accordance with reportable infectious disease guidelines. Serum 10/25/2024 10:1 7 PM EDT 10/25/2024 10:17 PM EDT Narrative [facility] - 10/25/2024 11:12 PM EDT Specimen is considered negative for HBsAg. us Leandra Og MD LAB BLOOD ORDERABLES F inal Result Performing Organization Address City/[facility]/ZIP Co de Phone Number [facility] [address] * Hepatitis A Antibody Total (10/25/2024 10:17 PM EDT) Anti-HAV Total (IgG + IgM) Nonreactive 10/25/2024 11:13 PM EDT [facility] Serum 10/25/2024 10:1 7 PM EDT 10/25/2024 10:17 PM EDT Narrative [facility] - 10/25/2024 11:13 PM EDT HAV antibodies not detected Leandra Og MD LAB BLOOD ORDERABLES F inal Result Performing Organization Address [facility] Co de Phone Number [facility] [address] [facility] * (ABNORMAL) Hepatic Function Panel (10/25/2024 10:17 PM EDT) Total Bilirubin 9.1(H) 0.0 - 1.5 mg/dL 10/25/2024 10:47 PM EDT [facility] Bilirubin, Direct 4.58(H) 0.00 - 0.40 mg/dL 10/25/2024 10:47 PM EDT [facility] AST 51(H) 13 - 39 U/L 10/25/2024 10:47 PM EDT [facility] ALT 23 7 - 52 U/L 10/25/2024 10:47 PM EDT [facility] Alkaline Phosphatase 144(H) 36 - 125 U/L 10/25/2024 10:47 PM EDT [facility] Total Protein 5.5(L) 6.4 - 8.9 g/dL 10/25/2024 10:47 PM EDT [facility] Albumin 3.5 3.5 - 5.7 g/dL 10/25/2024 10:47 PM EDT [facility] Bilirubin, Indirect 4.52(H) 0.00 - 1.10 mg/dL 10/25/2024 10:47 PM EDT [facility] Plasma 10/25/2024 10:1 7 PM EDT 10/25/2024 10:17 PM EDT us Leandra Og MD LAB BLOOD ORDERABLES F inal Result [facility] [address] * (ABNORMAL) Renal Function Panel w/EGFR (10/25/2024 10:17 PM EDT) Sodium 137 133 - 146 mmol/L 10/25/2024 10:47 PM EDT [facility] Potassium 2.1(LL) 3.5 - 5.3 mmol/L 10/25/2024 10:47 PM EDT [facility] Comment:Critical Result K:2. 1 Called to and read back by: ALICIA CARCAMO RN at: 10/25/2024 22:47:45 by:NANCY Chloride 100 98 - 110 mmol/L 10/25/2024 10:47 PM EDT [facility] CO2 20(L) 21 - 33 mmol/L 10/25/2024 10:47 PM EDT [facility] Anion Gap 17(H) 3 - 16 mmol/L 10/25/2024 10:47 PM EDT [facility] BUN 74(H) 7 - 25 mg/dL 10/25/2024 10:47 PM EDT [facility] Creatinine 3.87(H) 0.60 - 1.30 mg/dL 10/25/2024 10:47 PM EDT [facility] Glucose 114(H) 70 - 100 mg/dL 10/25/2024 10:47 PM EDT [facility] Calcium 9.3 8.6 - 10.3 mg/dL 10/25/2024 10:47 PM EDT [facility] Phosphorus 5.9(H) 2.1 - 4.7 mg/dL 10/25/2024 10:47 PM EDT [facility] Albumin 3.5 3.5 - 5.7 g/dL 10/25/2024 10:47 PM EDT [facility] Osmolality, Calculated 307(H) 278 - 305 mOsm/kg 10/25/2024 10:47 PM EDT [facility] EGFR 19 10/25/2024 10:47 PM EDT [facility] Comment:As of 2021, the estimated [...] ORDERABLES F inal Result Performing Organization Address City/[facility]/ZIP Co de Phone Number [facility] [address] [facility] * (ABNORMAL) APTT, NO ANTICOAGULANT (10/25/2024 10:17 PM EDT) Pathologist [facility] [place] aPTT 41.7(H) 25.5 - 35.0 seconds 10/25/2024 10:36 PM EDT [facility] Plasma 10/25/2024 10:1 7 PM EDT 10/25/2024 10:17 PM EDT Leandra Og MD LAB BLOOD ORDERABLES F inal Result [facility] [address] [facility] * (ABNORMAL) Protime-INR (10/25/2024 10:17 PM EDT) Protime 21.7(H) 12.1 - 15.1 seconds 10/25/2024 10:35 PM EDT [facility] INR 1.8(H) 0.9 - 1.1 10/25/2024 10:35 PM EDT [facility] Comment: RECOMMENDED THERAPEUTIC RANGES USING INR : Stable oral anticoagulant therapy: 2.0 - 3.0 Mechanical prosthetic heart valve: 2.5 - 3.5 Recurrent acute myocardial infarction: 2.5 - 3.5 Plasma 10/25/2024 10:1 7 PM EDT 10/25/2024 10:17 PM EDT us Leandra Og MD LAB BLOOD ORDERABLES F inal Result [facility] [address] * (ABNORMAL) Differential (10/25/2024 10:17 PM EDT) [facility] Differential Comments See Note 10/25/2024 10:54 PM EDT [facility] Comment: _Platelets Appear Decreased _Platelet Morphology Normal Scan Result PERFORMED 10/25/2024 10:54 PM EDT [facility] Neutrophils Relative 79.8 40.0 - 80.0 % 10/25/2024 10:54 PM EDT [facility] Lymphocytes Relative 9.6(L) 15.0 - 45.0 % 10/25/2024 10:54 PM EDT [facility] Monocytes Relative 8.9 0.0 - 12.0 % 10/25/2024 10:54 PM EDT [facility] Eosinophils Relative 1.3 0.0 - 8.0 % 10/25/2024 10:54 PM EDT [facility] Basophils Relative 0.4 0.0 - 1.0 % 10/25/2024 10:54 PM EDT [facility] nRBC 0 0 - 0 /100 WBC 10/25/2024 10:54 PM EDT [facility] Neutrophils Absolute 4,948 1,520 - 8,640 /uL 10/25/2024 10:54 PM EDT [facility] Lymphocytes Absolute 595 570 - 4,860 /uL 10/25/2024 10:54 PM EDT [facility] Monocytes Absolute 552 0 - 1,296 /uL 10/25/2024 10:54 PM EDT [facility] Eosinophils Absolute 81 0 - 864 /uL 10/25/2024 10:54 PM EDT [facility] Basophils Absolute 25 0 - 108 /uL 10/25/2024 10:54 PM EDT [facility] PLT Morphology Platelet morphology appears normal 10/25/2024 10:54 PM EDT [facility] Whole Blood 10/25/2024 10:1 7 PM EDT 10/25/2024 10:17 PM EDT us Leandra Og MD LAB BLOOD ORDERABLES F inal Result [facility] [address] [facility] [place] [address], [facility] * (ABNORMAL) CBC (10/25/2024 10:17 PM EDT) WBC 6.2 3.8 - 10.8 10E3/uL 10/25/2024 10:54 PM EDT [facility] RBC 2.40(L) 4.20 - 5.80 10E6/uL 10/25/2024 10:54 PM EDT [facility] Hemoglobin 8.3(L) 13.2 - 17.1 g/dL 10/25/2024 10:54 PM EDT [facility] Hematocrit 23.7(L) 38.5 - 50.0 % 10/25/2024 10:54 PM EDT [facility] MCV 98.9 80.0 - 100.0 fL 10/25/2024 10:54 PM EDT [facility] MCH 34.6(H) 27.0 - 33.0 pg 10/25/2024 10:54 PM EDT [facility] MCHC 35.0 32.0 - 36.0 g/dL 10/25/2024 10:54 PM EDT [facility] RDW 17.8(H) 11.0 - 15.0 % 10/25/2024 10:54 PM EDT [facility] Platelets 56(L) 140 - 400 10E3/uL 10/25/2024 10:54 PM EDT [facility] Comment: Specimen checked for clots. None detected. Slide Reviewed for PLT Clumps. None Seen. Platelet Estimate Decreased 10/25/2024 10:54 PM EDT [facility] MPV 8.1 7.5 - 11.5 fL 10/25/2024 10:54 PM EDT [facility] Whole Blood 10/25/2024 10:1 7 PM EDT 10/25/2024 10:17 PM EDT Narrative [facility] - 10/25/2024 10:54 PM EDT Peripheral blood smear was scanned per review criteria approved by the laboratory product manager medical device. Leandra Og MD LAB BLOOD ORDERABLES F inal Result [address] * Donor Specific Antibody (DSA) (10/25/2024 10:00 PM EDT) Pathologist [facility] AntiDonor Antibodies The request and specimen(s) for this test have been received and transported to the [facility] at [address] [place] [address]. The [facility] will report results directly to the client. 10/25/2024 10:20 PM EDT [facility] Comment:Testing performed by [facility], [facility], [address] [place] [address]. The [facility] report has been forwarded to the appropriate ordering location. Please refer to this report for patient results. Serum 10/25/2024 10:0 0 PM EDT 10/25/2024 10:20 PM EDT us Leandra Og MD LAB BLOOD ORDERABLES F inal Result [address] * (ABNORMAL) Venous Blood Gas, Line/Syringe (10/25/2024 10:00 PM EDT) PH-Line Draw 7.38 7.32 - 7.42 10/25/2024 10:08 PM EDT [facility] PCO2-Line Draw 33(L) 41 - 51 mm Hg 10/25/2024 10:08 PM EDT [facility] PO2-Line Draw 33 25 - 40 mm Hg 10/25/2024 10:08 PM EDT [facility] HCO3-Line Draw 20(L) 24 - 28 mmol/L 10/25/2024 10:08 PM EDT [facility] CO2 Content-Line Draw 21(L) 25 - 29 mmol/L 10/25/2024 10:08 PM EDT [facility] Base Excess-Line Draw -5.0(L) -2.0 - 3.0 mmol/L 10/25/2024 10:08 PM EDT [facility] %HBO2-Line Draw 53.8 40.0 - 70.0 % 10/25/2024 10:08 PM EDT [facility] Carboxyhgb-Ludivina e Draw 1.9 % 10/25/2024 10:08 PM EDT [facility] Comment: CARBOXYHEMOGLOBIN (CO) REFERENCE RANGES: Non-Smokers: <2 % Smokers: <8 % TOXIC: >20 % Methemoglobin- Line Draw 0.2 0.0 - 1.5 % 10/25/2024 10:08 PM EDT [facility] Reduced Hemoglobin-Ludivina e Draw 44.1(H) 0.0 - 5.0 % 10/25/2024 10:08 PM EDT [facility] Venous, Line Draw 10/25/2024 10:00 PM EDT 10/25/2024 10:04 PM EDT us Leandra Og MD LAB BLOOD ORDERABLES F inal Result [facility] [address] [id number], [facility] * (ABNORMAL) POC Glucose Monitoring Device (10/25/2024 9:56 PM EDT) POC Glucose Monitoring Device 103(H) 70 - 100 mg/dL 10/25/2024 9:58 PM EDT [facility] Blood 10/25/2024 9:5 6 PM EDT 10/25/2024 9:57 PM EDT Semaj Mcnair III, MD POINT OF CARE TEST ORDERABLES Final Result [facility] [address] * ECG 12 lead (MUSE) (10/25/2024 9:34 PM EDT) 10/25/2024 9:34 PM EDT Narrative MUSE - 10/27/2024 10:08 AM EDT Ventricular Rate: 97 BPM Atrial Rate: 86 BPM QRS Duration: 106 ms QT: 532 ms QTc: 675 ms P Voca: 38 degrees R Voca: -29 degrees T Voca: 32 degrees Diagnosis Line: Critical Test Result: Long QTc , AV Block ^ SINUS RHYTHM WITH PREMATURE VENTRICULAR COMPLEXES ^ PROLONGED QT ^ NONSPECIFIC ST AND T WAVE CHANGES ^ ABNORMAL ECG ^ ^ Confirmed by MD HA, [facility] ([facility]) on 10/27/2024 10:08:26 AM Leandra Og MD ECG ORDERABLES Final Result Performing Organization Address City/[facility] Co de Phone Number MUSE * Hepatitis C RNA, Quant Reflex to Genotyp (10/25/2024 8:18 PM EDT) International Units Not Detected IU/mL 10/27/2024 11:03 AM EDT [facility] Comment:Test methodology for HCV RNA quantification is an FDA-approved nucleic acid amplification assay. The Lower Limit of Quantitation (LLOQ) is 15 IU/mL. The linear range of the assay is 15-100,000,000 IU/mL. The Limit of Detection (LoD) is 12.0 IU/mL for EDTA plasma. The reference range is Not Detected. IU log10 See Note log 10 IU/mL 10/27/2024 11:03 AM EDT [facility] Comment:HCV RNA not detected . Plasma 10/25/2024 8:18 PM EDT 10/25/2024 10:27 PM EDT Leandra Og MD LAB BLOOD ORDERABLES F inal Result [facility] [address] * Urinalysis w/Rfl to Microscopic (10/25/2024 8:18 PM EDT) Color, UA Yellow Yellow,Straw 10/25/2024 10:38 PM EDT [facility] Clarity, UA Clear Clear 10/25/2024 10:38 PM EDT [facility] Specific [place], UA 1.010 1.005 - 1.035 10/25/2024 10:38 PM EDT [facility] pH, UA 6.0 5.0 - 8.0 10/25/2024 10:38 PM EDT [facility] Protein, UA Negative Negative mg/dL 10/25/2024 10:38 PM EDT [facility] Glucose, UA Negative Negative mg/dL 10/25/2024 10:38 PM EDT [facility] Ketones, UA Negative Negative mg/dL 10/25/2024 10:38 PM EDT [facility] Bilirubin, UA Negative Negative 10/25/2024 10:38 PM EDT [facility] Blood, UA Negative Negative 10/25/2024 10:38 PM EDT [facility] Nitrite, UA Negative Negative 10/25/2024 10:38 PM EDT [facility] Urobilinogen, UA <2.0 0.2 - 1.9 mg/dL 10/25/2024 10:38 PM EDT [facility] Leukocyte Esterase, UA Negative Negative 10/25/2024 10:38 PM EDT [facility] Urine 10/25/2024 8:18 PM EDT 10/25/2024 10:35 PM EDT Narrative [facility] - 10/25/2024 10:38 PM EDT Microscopic testing is not performed when the dipstick is negative for blood, leukocyte, protein and nitrite. Leandra Og MD URINE ORDERABLES Final Result [facility] [address] * Toxoplasma gondii antibody, IgG (10/25/2024 8:18 PM EDT) Toxoplasma Gondii IgG <3.0 0.0 - 7.1 IU/mL 10/27/2024 7:55 AM EDT [facility] Comment: Negative <7.2 Equivocal 7.2 - 8.7 Positive >8.7 Serum 10/25/2024 8:18 PM EDT 10/27/2024 8:06 AM EDT [facility] - 10/27/2024 8:06 AM EDT PERFORMED AT: [facility] [id number] STOCK CONTROL CLERK: Bassam Khalil, PhD PHONE: [phone] Leandra Og MD LAB BLOOD ORDERABLES F inal Result [address] * Antibody Screen (10/25/2024 7:46 PM EDT) Antibody Screen Negative 10/25/2024 10:41 PM EDT [facility] Blood 10/25/2024 7:46 PM EDT 10/25/2024 9:54 PM EDT [facility] - 10/25/2024 10:44 PM EDT Testing performed by [facility] Transfusion Service Ben Blake MD BLOOD BANK TEST ORDERABLES Fi nal Result [facility] [address] [place] [address]. [address] * ABO/Rh (10/25/2024 7:46 PM EDT) ABO Grouping O 10/25/2024 10:23 PM EDT [facility] Rh Type Positive 10/25/2024 10:23 PM EDT [facility] Blood 10/25/2024 7:46 PM EDT 10/25/2024 9:54 PM EDT us Ben Blake MD BLOOD BANK TEST ORDERABLES Fi nal Result [facility] [address] [place] [address], [facility] * (ABNORMAL) TEG-Standard Global Hemostasis (Rapid TEG with Heparin Effect, Contains a Baseline TEG) (10/25/2024 7:46 PM EDT) [facility] Cit[facility] Kaolin Reaction Time (TEGHEPARINASE) 8.4 4.6 - 9.1 minutes 10/25/2024 10:49 PM EDT [facility] Rapid Teg Maximum Amplitude (TEGHEPARINASE) <40.0(L) 52.0 - 70.0 mm 10/25/2024 10:49 PM EDT [facility] Functional Fibrinogen Maximum Amplitude (TEGHEPARINASE) 6.7(L) 15.0 - 32.0 mm 10/25/2024 10:49 PM EDT [facility] Kaolin W/Heparinase Reaction Time (TEGHEPARINASE) 8.1 4.3 - 8.3 minutes 10/25/2024 10:49 PM EDT [facility] Kaolin K-Time (TEGHEPARINASE) 2.5(A) 0.8 - 2.1 minutes 10/25/2024 10:49 PM EDT [facility] Kaolin Angle (TEGHEPARINASE) 65.7(A) 63.0 - 78.0 degrees 10/25/2024 10:49 PM EDT [facility] Kaolin Maximum Amplitude (TEGHEPARINASE) <40.0(L) 52.0 - 69.0 mm 10/25/2024 10:49 PM EDT [facility] Functional Fibrinogen- Fibrinogen Level (TEGHEPARINASE) 159.5(L) 278.0 - 581.0 mg/dL 10/25/2024 10:49 PM EDT [facility] Whole Blood (Citrate) 10/25/2024 7:46 PM EDT 10/25/2024 10:15 PM EDT us Ben Blake MD LAB BLOOD ORDERABLES Final Re sult [facility] [address] [place] [address], [facility] documented in this encounter [...] dose, POD #[id number] (Given - Provider: Pauletet Flannery RN) senna-docusate (SENNA-S) 8.6-50 mg per [...] documented as of this encounter Care Teams Master Automotive Technician Relationship Specialty Start Date End Date Enedina Mcguire NP [address] [place] [id number] PCP - General Internal Medicine 10/05/24 documented as of this encounter
--- OUTSIDE RECORDS SUMMARY | 2024-10-25 22:54 | XMS_ITS | Encounter Summary ---
Author Organization [facility] Address [facility] [place] [address] Care Team Providers Care Retail Team Member Name Role Phone Enedina Mcguire NP Primary Care Provider [phone] Source Comments This information has been disclosed [...] release of HIV test results or diagnoses. [id number] Reason for Visit * Auth/Cert (Routine) Specialty Diagnoses / Procedures Referred By Shane t Referred To Contact Surgical Intensive Care Diagnoses Liver transplant recipient (CMS-HCC) cirrhosis and CKD Procedures LIVER-KIDNEY TRANSPLANT [facility] S[facility] [address] [place] [address] Phone: tel: Referral ID Status Reason Start Date Expiration Date Visits Re quested Visits Authorized [id number] 1 1 Encounter Details Date Type Department Care Team (Late st Contact Info) Description 10/25/2024 10:54 PM EDT Anesthesia Event [facility] [address] [place] [address] Eber Quinones MD [address] [address] Maureen Fleming MD [address] [place] [address] Anesthesia Record Procedure Summary Procedure Name Responsible [...] sodium chloride 0.9% 1 00 mL IVPB (Jsnp2Row) 4 g cefTRIAXone (ROCEPHIN) 2 g in sodium chl oride 0.9 % 100 mL Mggv0Bii 8 g fluconazole (DIFLUCAN) 200 mg in [...] the past 12 months has th e [employer], oil, or water [employer] threatened to shut off services in your [...] Blake MD - 10/25/2024 7:26 PM EDT [facility] DEPARTMENT OF ANESTHESIOLOGY PRE-PROCEDURAL EVALUATION Julien Anderson is a 39 y.o. year old male presenting for: Procedure(s): LIVER-KIDNEY TRANSPLANT Surgeon: Hravey Domínguez III, MD Chief Complaint cirrhosis and [...] dysrhythmias, angina, orthopnea. ECG reviewed. ROS comment: [facility] 10/14/24: IMPRESSIONS: - Patent coronary [...] is no recent study available for direct onte-pe-tsgp comparison. Stress echo 10/09/24: - Left ventricle: [...] at baseline or with provocation, shows no hbbnk-zh-slvt atrial level shunt. - Pulmonary arteries: Systolic [...] Resource Strain: Low Risk (07/09/2024) Received from [facility] Overall Financial Resource Strain (CARDIA) Difficulty of [...] To Answer (07/14/2024) Received from [facility] [place] of Occupational Health - Occupational Stress Questionnaire Feeling of Stress : Patient unable to answer Social Connections: Patient Unable To Answer (07/14/2024) Received from [facility] Social Connection and Isolation Panel [NHANES] Frequency of Communication with Friends and Family: Patient unable to answer Frequency of Social Gatherings with Friends and Family: Patient unable to answer Attends Taoist Services: Patient unable to answer Active Member [...] times a day. naloxone (NARCAN) 4 mg/actuation [place] Apply 1 spray in one nostril if [...] MD - 10/25/2024 11:54 PM EDTAssociated Order(s): Harwood Emily Cath Harwood Emily Cath Date/Time: 10/25/2024 11:13 PM Performed [...] procedure performed. Ben Blake MD Attending Anesthesiologist [facility] * Jimmy Gonzalez MD - 10/25/2024 11:52 [...] procedure performed. Ben Blake MD Attending Anesthesiologist [facility] documented in this encounter Plan of Treatment [...] EDT Ben Blake MD 10/26/2024 7:45 PM [facility] Emily Cath Date/Time: 10/25/2024 11:13 PM Performed [...] - 10/26/2459 10/26/24699 - 10/27/24 0659 Shift 4301-2460 3134-4076 6264-0241 24 Hour Total 4556-5625 0953-9383 9119-0320 24 Hour Total INTAKE I.V. 9100(74.3) 9100(74.3) [...] in sodium chloride 0.9 % 100 mL Hjbb3Jdc) 100 100 Volume (mL) (AMPicillin 2 g in sodium chloride 0.9% 100 mL IVPB (Ilci5Omx)) 200 200 Volume (mL) (albumin human bottle 5%) 1000 1000 Volume (mL) (potassium chloride (KCl)/Sterile water 100 mL 10 mEq/100 mL IVPB) 200 200 Shift Total(mL/kg) 43015(151.9) 89284(151.9) OUTPUT Urine 150(0.2) 1375 1525 Urine 150 [...] in sodium chloride 0.9% 100 mL IVPB (Omoa0Rxw) 2 g, Intravenous, at 200 mL/hr, Every 6 hours, First dose on 10/26/24 at 0000, Use Wsjw3Yta Adapter - Mix Thoroughly Before Administration Bolus [...] in sodium chloride 0.9 % 100 mL Pwya4Bdr 2 g, Intravenous, Administer over 30 Minutes, Once, Use Cfyv6Jrf Adapter - Mix Thoroughly Before Administration, Indication? [...] documented as of this encounter Care Teams Retail Team Member Relationship Specialty Start Date End Date Enedina Mcguire NP [address] [place] [phone] PCP - General Internal Medicine 10/05/24 documented as of this encounter
--- OUTSIDE RECORDS SUMMARY | 2024-10-27 02:00 | XMS_ITS | Encounter Summary ---
Author Organization [facility] Address [address] [place] [address] Care Team Providers Care Brim Cutter Name Role Phone Enedina Mcguire NP Primary Care Provider [phone] Source Comments This information has been disclosed [...] release of HIV test results or diagnoses. [id number] Reason for Visit * Auth/Cert (Routine) Specialty Diagnoses / Procedures Referred By Shane hernadez Referred To Contact Surgical Intensive Care Diagnoses Liver transplant recipient (CMS-HCC) cirrhosis and CKD Procedures LIVER-KIDNEY TRANSPLANT [facility] SICU [address] [place] [address] Phone: tel: Referral ID Status Reason Start Date Expiration Date Visits Re quested Visits Authorized [id number] 1 1 Encounter Details Date Type Department Care Team (Late st Contact Info) Description 10/27/2024 2:00 AM EDT - 10/27/2024 6:54 AM EDT Surgery [facility] PERIOP [address] [place] [address] Semaj Mcnair III, MD [address] [facility] [address] [place] [address] Donor Kidney Transplant , Back [...] Recorded In the past 12 months has Conc[employer], oil, or water [employer] threatened to shut off services in your [...] Plata MD - 11/02/2024 2:04 PM EDT [facility] Liver Transplant Surgical Service Inpatient Discharge Summary Patient: Blair Gilbert : 1985 [facility]: [id number] Date of Admission: 10/25/2024 Date of Discharge: [...] Case IDs Date Procedure Surgeon Location Status [id number] 10/25/24 LIVER TRANSPLANT Semaj Mcnair III, MD OR Comp [id number] 10/27/24 Donor Kidney Transplant , Back Bench [...] EXAM: US ABDOMEN LIMITED EXAM: US DUPLEX CGH-GRYREN-UYKMKXY COMPLETE INDICATION: Post-op liver transplant COMPARISON: None [...] visualized secondary to poor acoustic windows. The [place] right kidney measures 11.6 cm in length. [...] 30 tablet Refills: 0 naloxone 4 mg/actuation Tarina Commonly known as: NARCAN Apply 1 spray [...] Your Medications These medications were sent to [facility] NAA Baum [address] Mya 105[facility] [place] [address] mycophenolate 250 mg capsule tacrolimus 1 MG capsule These medications were sent to [facility] [address] [place] [address] Hours: Sunday - Sunday: 8:00AM - 6:00PM [...] Case IDs Date Procedure Surgeon Location Status [id number] 10/25/24 LIVER TRANSPLANT Semaj Mcnair III, MD OR Comp [id number] 10/27/24 Donor Kidney Transplant , Back Bench [...] discharge. NEURO/PAIN - Patient placed on Dilaudid VP TRAINING once extubated, then transitioned to multi-modal pain [...] Ureteral stentis scheduled for removal on 11/25 [facility] - PT/OT evaluated patient and recommended Home PT/OT, outpatient PT/OT only available. ENDO - A1C is 5.0. Pt was not on diabetic regimen prior to arrival. Patient developed steroid-induced hyperglycemia 2/2 steroid regimen. Discharged home on the following regimen: HDSSI. Patient met w/ timber supervisor prior to discharge. HEME - Post-operatively, monitored [...] Patient and family received post-transplant education from product marketing coordinator as well as medication teaching [...] 11/04/2024 8:40 AM LTRA SURGERY, [facility] LTRA HOX HOX 11/04/2024 10:10 AM LTRA HEPATORENAL HOX LTRA HOX HOX 11/25/2024 9:00 AM NAA Merida [facility] URO MAB MAB 12/02/2024 2:00 PM Bossman Huffman MD [facility] MARIANGEL MAB MAB 02/25/2025 10:50 AM Bruno Gonzalez MD KTSP HOX HOX Kenyetta Hartman, MS-4 [facility] SHAY PLATA MD 11/02/2024 12:50 [...] kept under 2 gm/day. Please discuss withyour interpretive program coordinator if you have any question about appropriate dose to take. Other Instructions: Call post-liver transplant clinic with questions [phone] or call [facility] at [phone] and ask for the liver product marketing coordinator ultrasonic seaming machine operator if you experience any of the following: [...] 11/04/2024 8:40 AM LTRA SURGERY, [facility] LTRA HOX HOX 11/04/2024 10:10 AM LTRA HEPATORENAL [facility] LTRA HOX HOX 11/25/2024 9:00 AM NAA Merida [facility] URO MAB MAB 12/02/2024 2:00 PM [...] AM EDT 10/30/2024 naloxone (NARCAN) 4 mg/actuation Tarina Apply 1 spray in one nostril if [...] tacrolimus and mycophenolate which were dispensed through [facility] per insurance requirements. Patient's confirms [...] fair Expected caregiver involvement?: is primary med cargo and ramp services manager Need for additional education in clinic?: routine reinforcement only Future medications to be obtained from, if known (select one): Tac/MMF to be filled from [facility] Financial concerns (if any): [...] Disp-15 mL, R-2 lancets (ACCU-CHEK SOFTCLIX LANCETS) Misc Use to [...] Disp-30 tablet, R-0 naloxone (NARCAN) 4 mg/actuation Tarina Apply 1 spray in one nostril if [...] Solid Organ Transplant Clinical Specialist Contact via Arisoko Secure Chat * Froylan Hendrickson MD - 11/01/2024 8:04 AM EDT Liver Transplant Surgery Progress Note Name: Blair Gilbert CSN: [id number] Date: 11/01/2024 8:06 AM OR Date: 10/25/2024 [...] DAILY 06 lidocaine 2 patch Transdermal Daily 0900 loratadine [...] ON 11/03/2024] predniSONE 20 mg Oral Daily 09 senna-docusate 1 tablet Oral BID sodium bicarbonate [...] at 10/31/2024 4:38 PM EDT US Duplex Zzj-Cyp-Akvhmnc Comp Result Date: 10/31/2024 IMPRESSION: RIGHT UPPER [...] 10/25/2024 - 10/27/2024. Plan: Liver transplant recipient ([facility]) [Z94.4] Neuro: - Multimodal pain [...] 3:24 PM EDT TXP - Follow Up [facility] Medical Nutrition Therapy Transplant Brief [...] Boost VHC- very high calorie protein supplement ([facility] only) Pertinent Information: Pt seen [...] Based on DBW of 93.1 kg Kcals/day: 8521-1641 (25-30 kcals/kg) Protein g/day: 140-190 (1.5-2.0 g/kg) [...] Dietitian - Solid Organ Transplant Contact via Arisoko Chat * Keon Dobson - 10/31/2024 2:35 PM EDT [facility] Spiritual Care Volunteer Visit PATIENT NAME: Blair Gilbert ROOM:[address] [place] [address] Cheondoism Affiliation:Oriental Orthodox Blair Gilbert was visited by a volunteer today. No needs requiring a visit from a staff finance admin were expressed at that time. Care Provided: Communion, Prayer/ blessing Please page our service at [phone] as needs arise for patient and/or family. Fr Dean Dobson Oriental Orthodox finance admin Spiritual Care Dept * Brittany Horne PT [...] transplant recipient (CMS-HCC) [Z94.4] Date: 10/31/2024 Room: [facility] Reviewed Pertinent hospital course: Yes Hospital Course [...] issued by OT: Long-handled sponge, Sock aid, Animal Pathologist, Other (comment) Equipment issued by OT comment: leg family advocate Assessment Assessment: Decreased ADL status, Decreased IADLs, [...] IADL task (Goal met and continued 10/31) Long-Term Goal : Pt will complete bathing assessment and transfer termite helper goal to be met in: 2 [...] Patient Active Problem List Diagnosis Decompensated cirrhosis ([facility]) Acute kidney injury superimposed on CKD ([facility]) Alcohol use disorder Metabolic encephalopathy Hypertension Other hyperlipidemia Thrombocytopenia ([facility]) Renal mass, left Abdominal pain Hypokalemia CKD (chronic kidney disease) stage 4, GFR 15-29 ml/min ([facility]) Metabolic acidosis with normal anion gap and bicarbonate losses GERD (gastroesophageal reflux disease) Hypothyroidism Itching Anemia BRBPR (bright red blood per rectum) SBP (spontaneous bacterial peritonitis) ([facility]) C Diff Diarrhea C. difficile [...] 0659 10/31/24 07 - 11/01/24 0659 Shift 8154-4723 7984-6975 6009-9474 24 Hour Total 2210-8763 4158-3794 1207-6397 24 Hour Total INTAKE P.O. 240 240 P.O. 240 240 Shift Total(mL/kg) 240(1.9) 240(1.9) OUTPUT Urine(mL/kg/hr) 1850(1.8) 600(0.6) 600(0.6) 3050(1) 350 350 Urine 800 491 621 7039 350 350 Urine Occurrence 2 x 2 [...] with further concerns Lavell Kramer MD 10/31/[phone] * Priti Geiger CNP - 10/31/2024 10:06 AM EDT Liver Transplant Surgery Progress Note Name: Blair Gilbert CSN: [id number] Date: 10/31/2024 10:06 AM OR Date: 10/25/2024 [...] 10/28/24 1109 LACTATE 0.3* Imaging US Duplex Jnz-Ptk-Ticwbdn Comp Result Date: 10/28/2024 IMPRESSION: ABDOMINAL ULTRASOUND [...] 10/25/2024 - 10/27/2024. Plan: Liver transplant recipient ([facility]) [Z94.4] Neuro: - Multimodal pain [...] Transplant Nephrology Progress Note Patient: Blair Gilbert [id number] Date of Admit: 10/25/2024. LOS: 6 [...] CKD IIIb/IV: - Presumed s/t HRS - Freight Manager: Yovanny Curran at [facility] Allograft Function: S/p SLK 10/25- (kidney preemptive) [...] 10/27/2024 PCO2 35 10/27/2024 PO2ART 92 10/27/2024 YBY8EEL 21 (L) 10/27/2024 BEART -4.6 (L) 10/27/2024 XJQ4ADX 95.4 10/27/2024 Y1JPTXFN 98 10/27/2024 Hemodynamics / Cardiovascular Status: Goal [...] % Iron Saturation: SEE COMMENT on 10/25/2024 YrosuqbR22: No results found for requested labs within [...] preliminary until attending attestation. Lauren Santos, SAMSON, MANAGER OCCUPATIONAL, LENS GRINDER APPRENTICE- Transplant Nephrology [phone] Preferred contact: secure chat The HPI, ROS, [...] last 3 shifts: Date 10/29/24699 - 10/30/24 0610/30/24699 - 10/31/24 06 Shift 2085-6548 8269-6178 0688-4068 24 Hour Total 1176-0398 6251-8312 9001-2393 24 Hour Total INTAKE P.O. 240 240 480 P.O. 240 240 480 IV Piggyback 87.2 87.2 Volume (mL) (micafungin (MYCAMINE) 50 mg in sodium chloride 0.9 % 100 mL Cqwf6Wiw IVPB) 87.2 87.2 Shift Total(mL/kg) 240(2) 327.2(2.7) 567.2(4.4) OUTPUT Urine(mL/kg/hr) 600(0.6) 1175(1.2) 450(0.4) 2225(0.7) 550 550 Output (mL) (IUC (Berkowitz) Triple-lumen (3-Way) 18 Fr.) 600 3048 035 0888 550 550 Drains 175 245 100 520 [...] month of prophylaxis Lavell Kramer MD 10/30/[phone] * Priti Geiger CNP - 10/30/2024 10:36 AM EDT Liver Transplant Surgery Progress Note Name: Blair Gilbert CSN: [id number] Date: 10/30/2024 10:37 AM OR Date: 10/25/2024 [...] 1109 LACTATE 0.5 0.3* Imaging US Duplex Kyz-Mjo-Ofsnuol Comp Result Date: 10/28/2024 IMPRESSION: ABDOMINAL ULTRASOUND [...] 10/25/2024 - 10/27/2024. Plan: Liver transplant recipient ([facility]) [Z94.4] Neuro: - Multimodal pain [...] Transplant Nephrology Progress Note Patient: Blair Gilbert [id number] Date of Admit: 10/25/2024. 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 Lauren Santos, DNP, MANAGER OCCUPATIONAL, LENS GRINDER APPRENTICE- Transplant Nephrology [phone] Preferred contact: secure chat The HPI, ROS, [...] EDT Pt seen, examined, and discussed with SWIMMER on 10/30/2024. reviewed the chart including the labs and imaging studies. My additional comments below. 39 y.o. 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 Last BM Date: (bellhop captain). Admit Weight: 270 lb (122.5 kg) [...] Based on DBW of 93.1 kg Kcals/day: 8874-6836 (25-30 kcals/kg) Protein g/day: 140-190 (1.5-2.0 g/kg) [...] Dietitian - Solid Organ Transplant Contact via Arisoko Chat * Anita Carrascoradha, PT - 10/29/2024 2:04 PM EDT Physical Therapy Initial Assessment Name: Blair Gilbert : 1985 Attending Physician: Semaj Mcnair III, MD Admission Diagnosis: Liver transplant recipient (CMS-HCC) [Z94.4] Date: 10/29/2024 Room: [place] [address] [address] Reviewed Pertinent hospital course: Yes Hospital Course [...] with functional mobility at: 4/10 or less Survey Data Technician Goal : Pt will ambulate 250' mod [...] transplant recipient (CMS-HCC) [Z94.4] Date: 10/29/2024 Room: [place] [address] [address] Reviewed Pertinent hospital course: Yes Hospital Course [...] Intervention(s): Ambulation/increased activity;Repositioned Therapist reported pain to: sole buffer Oxygen Supplemental Oxygen Supplemental Oxygen: None (Room [...] distance ambulation in prep for IADL task Survey Data Technician Goal : Pt will complete bathing assessment and transfer termite helper goal to be met in: 2 [...] Patient Active Problem List Diagnosis Decompensated cirrhosis ([facility]) Acute kidney injury superimposed on CKD ([facility]) Alcohol use disorder Metabolic encephalopathy Hypertension Other hyperlipidemia Thrombocytopenia ([facility]) Renal mass, left Abdominal pain Hypokalemia CKD [...] Transplant Nephrology Progress Note Patient: Blair Gilbert [id number] SICU-28/USIC-28 Date of Admit: 10/25/2024. 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 Lauren Santos, SAMSON, MANAGER OCCUPATIONAL, LENS GRINDER APPRENTICE- Transplant Nephrology [phone] Preferred contact: secure chat The HPI, ROS, [...] EDT Pt seen, examined, and discussed with SWIMMER on 10/29/2024. reviewed the chart including the labs and imaging studies. My additional comments below. 39 y.o. 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 Plan: Liver transplant recipient ([facility]) [Z94.4] Neuro: - Multimodal pain [...] SQH, SCDs DISPO: floor KENYETTA DEVAN, MS4 [facility] Surgery 10:08 AM 10/29/2024 Cosigned by Lydia [...] - 10/29/2465810/29/24 07 - 10/30/24 0659 Shift 1365-0722 9938-2506 2647-3056 24 Hour Total 5578-0896 8334-1439 4973-6815 24 Hour Total INTAKE P.O. 240 0 [...] IV infusion) 253.9 374.7 775.6 1404.2 Blood 3715 297 0290 Albumin 750 750 Volume (Transfuse RBC Transfusion Rate: Per dept routine) 310 310 Volume (Transfuse RBC Transfusion Rate: Per dept routine) 271 271 IV Piggyback 918.4 618 16 0659.4 Volume (mL) (micafungin (MYCAMINE) 50 mg in sodium chloride 0.9 % 100 mL Ilsf8Qus IVPB) 99.9 99.9 Volume (mL) (albumin human [...] month of prophylaxis Lavell Kramer MD 10/29/[phone] * John Moreno MD - 10/29/2024 6:47 AM EDT SURGICAL ICU PROGRESS NOTE 10/29/2024 6:47 AM Name: Blair Gilbert CSN: [id number] HPI: Blair Gilbert is a 39 y.o. [...] day. blood-glucose meter (TRUE METRIX GLUCOSE METER) [facility] Use to test blood sugar up to 4 times a day. DEXCOM G7 SEAFOOD HARVESTER Misc Use reader as directed. DEXCOM G7 [...] and at bedtime. lancets (ACCU-CHEK SOFTCLIX LANCETS) [facility] Use to test blood sugar up to 4 times a day. methocarbamoL (ROBAXIN) 500 MG tablet Take 1 tablet (500 mg total) by mouth 3 times a day. naloxone (NARCAN) 4 mg/actuation Tarina Apply 1 spray in one nostril if [...] 37 37 35 PO2ART 245* 182* 92 SDC6WOC 22 21* 21* BEART -4.2* -4.8* -4.6* [...] at baseline or with provocation, shows no thhyt-ev-jsul atrial level shunt. - Pulmonary arteries: Systolic [...] Home pantoprazole 40mg daily, continue Last BM: CHOPPED STRAND OPERATOR - suppository today Bowel regimen: Miralax [...] results for input(s): TEGANGLE , TEGKTIME , UUBXRZBY75 , TEGMAXAMPL , TEGRTIME , CBMZ in [...] in sodium chloride 0.9 % 100 mL Yzps5Cgu IVPB 50 mg Every 24 hours 10/27/2024 -- Admin Instructions: PROTECT FROM LIGHT FLUSH LINE w/NSS PRIOR TO ADMINISTRATION Use Ojhg2Zdj Adapter - Mix Thoroughly Before Administration Route: [...] BID Continuous Infusions: HYDROmorphone 6 mg/30 mL VP TRAINING norepinephrine 4 mcg/min (10/27/24 2318) sodium chloride [...] Intake/Output last 3 shifts: Date 10/27/24699 - 10/28/2459 10/28/24 07 - 10/29/24 0659 Shift 6740-6931 7623-2950 3914-0200 24 Hour Total 4775-5140 2218-6290 9042-5805 24 Hour Total INTAKE P.O. 0 120 [...] in sodium chloride 0.9 % 100 mL Rpiw6Qqm IVPB) 100 100 Volume (mL) (albumin human 5%) 126 126 Volume (mL) (potassium chloride (KCl)/Sterile water 50 mL 20 mEq/50 mL IVPB 20 mEq) 100 100 Volume (mL) (AMPicillin 1 g in sodium chloride 0.9% 100 mL IVPB (Isfs1Ykn)) 100.1 57 42.9 200 Volume (mL) (mycophenolate (CELLCEPT) 500 mg in dextrose 5% in water (D5W) 50 mL IVPB) 50 5.3 55.3 Shift Total(mL/kg) 2079.3(17) 1161(9.5) 787.3(6.4) 4027.6(32.9) OUTPUT Urine(mL/kg/hr) 2195(2.2) 1000(1) 900(0.9) 4095(1.4) 490 490 Urine 360 360 Output (mL) (IUC (Berkowitz) Triple-lumen (3-Way) 18 Fr.) 1835 9900 154 7367 490 490 Emesis/NG output 50 50 Drainage [...] month of prophylaxis Lavell Kramer MD 10/28/[phone] * Caron Santos CNP - 10/28/2024 9:00 AM EDT Images from the original note were not included. Transplant Nephrology Progress Note Patient: Blair Gilbert [id number] SICU-28/USIC-28 Date of Admit: 10/25/2024. 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 Lauren Santos, DNP, MANAGER OCCUPATIONAL, LENS GRINDER APPRENTICE- Transplant Nephrology [phone] Preferred contact: secure chat The HPI, ROS, [...] EDT Pt seen, examined, and discussed with SWIMMER on 10/28/2024. reviewed the chart including the labs and imaging studies. My additional comments below. 39 y.o. 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 S/p SLK 10/25-10/26 Has great UOP 4.2L Aaron Gonzalez MD, MEd, FASN * Shay Plata MD - 10/28/2024 7:41 AM EDT Liver Transplant Surgery Progress Note Name: Blair Gilbert CSN: [id number] Date: 10/28/2024 11:05 AM OR Date: 10/25/2024 - 10/27/2024 Subjective: 1 Day Post-Op Received one unit pRBCs overnight On low dose levo this morning Increasing tachycardia Reports worsening pain, on VP TRAINING Tolerated sips of clears No nausea/vomiting, no [...] Oral BID Continuous: HYDROmorphone 6 mg/30 mL VP TRAINING norepinephrine Stopped (10/28/24 0637) sodium chloride 0.9 [...] -- 4.5* Recent Labs 10/27/24 0816 10/27/24 17110/28/24 0413 INR 1.2* 1.1 1.1 PROTIME 16.2* [...] at 10/27/2024 10:38 AM EDT US Duplex Veu-Swi-Nfypymy Comp Result Date: 10/27/2024 IMPRESSION: RIGHT UPPER [...] 10/25/2024 - 10/27/2024. Plan: Liver transplant recipient ([facility]) [Z94.4] Neuro: - Multimodal pain control: dilaudid VP TRAINING, tylenol, robaxin. PRN dilaudid for breakthrough CV: [...] transfuse as appropriate (significant OR blood loss 6/15) - Admission plt 56, most recently 38 [...] SCDs DISPO: SICU SHAY PLATA MD, MS4 [facility] Surgery 11:05 AM 10/28/2024 Cosigned [...] 10/28/2024 6:17 AM Name: Blair Gilbert CSN: [id number] HPI: Blair Gilbert is a 39 y.o. [...] to 4 times a day. DEXCOM G7 SEAFOOD HARVESTER Misc Use reader as directed. DEXCOM G7 [...] times a day. naloxone (NARCAN) 4 mg/actuation Tarina Apply 1 spray in one nostril if [...] Oral BID Continuous: HYDROmorphone 6 mg/30 mL VP TRAINING insulin regular in 0.9 % sodium chloride [...] 37 37 35 PO2ART 245* 182* 92 ZRP3NXS 22 21* 21* BEART -4.2* -4.8* -4.6* [...] at baseline or with provocation, shows no brykm-cj-ftgi atrial level shunt. - Pulmonary arteries: Systolic [...] while intubated,convert to PO today Last BM: CHOPPED STRAND OPERATOR Bowel regimen: Miralax today, hold senna [...] ml IV Fluids: HYDROmorphone 6 mg/30 mL VP TRAINING insulin regular in 0.9 % sodium chloride, [...] no concerns - 3 day berkowitz - ut 10/30 - Makes urine at baseline - [...] last 72 hours. Recent Labs 10/27/24 0816 10/27/2410/28/25 0413 INR 1.2* 1.1 1.1 PROTIME 16.2* 15.2* 14.6 No results for input(s): TEGANGLE , TEGKTIME , AGZAOSAH11 , TEGMAXAMPL , TEGRTIME , CBMZ in [...] in sodium chloride 0.9% 100 mL IVPB (Kddz0Hhk) (Completed) 1 g Every 6 hours scheduled 10/26/2024 10/28/2024 Admin Instructions: Dosage may need to be adjusted for renal dysfunction. Full dose is 1g IV q6h Use Bxpx3Bep Adapter - Mix Thoroughly Before Administration Notes to Pharmacy: On food service order clerk estimated creatinine clearance is [...] in sodium chloride 0.9 % 100 mL Oylg8Yyx IVPB 50 mg Every 24 hours 10/27/2024 -- Admin Instructions: PROTECT FROM LIGHT FLUSH LINE w/NSS PRIOR TO ADMINISTRATION Use Idrc9Exl Adapter - Mix Thoroughly Before Administration Route: [...] Other (See Comments) Became Manic * Farhana Velasquez RXT - 10/27/2024 1:38 PM EDT Caprini [...] the Caprini Risk Score of 10 and [facility] transplant protocol, I recommend discharging on heparin [...] Solid Organ Transplant Clinical Specialist Contact via Arisoko Secure Chat Preferred O. [phone] * Chinedu Almeida RRT - 10/27/2024 1:10 [...] PCO2 37 10/27/2024 PO2ART 245 (H) 10/27/2024 AQQ4FJZ 22 10/27/2024 BEART -4.2 (L) 10/27/2024 UYY2YIF 96.5 10/27/2024 X4IOHCIB 100 10/27/2024 Based on this SBT assessment [...] Transplant Surgery Progress Note Name: Blair Gilbert [facility]: [id number] Date: 10/27/2024 11:40 AM OR Date: 10/25/2024 - 10/27/2024 Subjective: * Day of Surgery * Remains intubated in SICU Sedated but appropriately nods to questions No acute distress Objective: BP 100/48 Pulse 89 Temp 99 ??F (37.2 ??C) ([place]) Resp 9 Ht 6' 4 (1.93 m) [...] at 10/27/2024 10:38 AM EDT US Duplex Jxk-Twx-Skykvrl Comp Result Date: 10/27/2024 IMPRESSION: RIGHT UPPER [...] 10/27/2024. Problem List[1] Plan: Liver transplant recipient (CMS-HCC) [Z94.4] Neuro: - Propofol/fentanyl CV: - Wean [...] SQH, SCDs DISPO: SICU KENYETTA HARTMAN, MS4 [facility] Surgery 11:40 AM 10/27/2024 [1] Patient Active Problem List Diagnosis Decompensated cirrhosis ([facility]) Acute kidney injury superimposed on CKD ([facility]) Alcohol use disorder Metabolic encephalopathy Hypertension Other hyperlipidemia Thrombocytopenia ([facility]) Renal mass, left Abdominal pain [...] and paper copy placed inpatient's chart. * Chineud Almeida RRT - 10/27/2024 7:45 AM EDT [...] 10/27/2024 7:16 AM Name: Blair Gilbert CSN: [id number] HPI: Blair Gilbert is a 39 y.o. [...] times a day. naloxone (NARCAN) 4 mg/actuation Tarina Apply 1 spray in one nostril if [...] 001) Recent Labs 10/26/24 0610 10/26/24 1048 10/27/2412 PHART 7.27* 7.37 7.32* PCO2 47* 36 37 PO2ART 127* 91 137* DGL1PNZ 21* 22 20* BEART -5.4* -3.9* -6.4* [...] at baseline or with provocation, shows no lfoyq-wj-tmej atrial level shunt. - Pulmonary arteries: Systolic [...] IV pantoprazole while intubated, NPO Last BM: CHOPPED STRAND OPERATOR Bowel regimen: Senna/Miralax when able Nausea: [...] 10/27/2024 0715 Gross per 24 hour Intake 16449.82 ml Output 7060 ml Net 6224.82 ml [...] results for input(s): TEGANGLE , TEGKTIME , XBZFRYGN49 , TEGMAXAMPL , TEGRTIME , CBMZ in [...] in sodium chloride 0.9% 100 mL IVPB (Tpbx8Tmb) 1 g Every 6 hours scheduled Admin Instructions: Dosage may need to be adjusted for renal dysfunction. Full dose is 1g IV q6h Use Nyol6Xmh Adapter - Mix Thoroughly Before Administration Notes to Pharmacy: On food service order clerk estimated creatinine clearance is 35.9 mL/min (A) (based on SCr of 3.87 mg/dL (H)). Route: Intravenous Linked Group 1: Placed in And Linked Group cefTRIAXone (ROCEPHIN) 2 g in sodium chloride 0.9 % 100 mL Viul9Htr Continuous - One Step Medications Only 10/27/2024 [...] R IJ Mac Arterial Line? R radial [place] Urinary Catheter? 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 naloxone (NARCAN) 4 mg/actuation Tarina Apply 1 spray in one nostril if [...] Strain: Low Risk (07/09/2024) Received from [facility] Overall Financial Resource Strain (CARDIA) Difficulty of [...] No Physical Activity: Unknown (07/14/2024) Received from [facility] Exercise Vital Sign Days of Exercise per Week: Patient unable to answer Minutes of Exercise per Session: Not on file Stress: Patient Unable To Answer (07/14/2024) Received from [facility] [place] of Occupational Health - Occupational Stress Questionnaire Feeling of Stress : Patient unable to answer Social Connections: Patient Unable To Answer (07/14/2024) Received from [facility] Social Connection and Isolation Panel [NHANES] Frequency [...] -- 5.4 ALBUMIN 3.2* 3.1* Invalid input(s): [facility] Other labs: Imaging Studies No results [...] admitted to SICU post-op. LEANDRA OG MD [facility] Surgery Liver Transplant Pager: [phone] 8:24 PM 10/25/2024 Cosigned by Semaj [...] Name: Blair Gilbert Date: 1985 Billing #: [id number] Date of Procedure: 10/25/2024 Diagnosis: End Stage Renal Disease Procedure: 1. Donor Kidney Transplant 2. Back Bench Preparation Donor Kidney 3. Baseline Kidney transplant biopsy 4. Insertion of Indwelling Stent 5. Removal of Perihepatic packing Surgeons * Flaquito Ba MD E M Assembler MD Shayan Findings: Low Hockey stick incision [...] donor was ABO O and UNOS ID [id number], Match Run [id number] (SLK). This donor was a Donor after [...] was then wanded with the lap detection perinatal breastfeeding assistant. The incision was ex tented 2 [...] and closure. Flaquito Ba MD Transplant Surgeon mandarin teacher * Flaquito Ba MD - 10/27/2024 6:15 AM EDT TRANSPLANT KIDNEY with bile duct reconstruction Brief Op Note Blair Gilbert 10/27/2024 Pre-op Diagnosis: Acute kidney injury superimposed on CKD (CMS-HCC) [N17.9, N18.9] Post-op Diagnosis: same Procedure(s): TRANSPLANT KIDNEY Surgeon(s): MD Semaj Washington III, MD Anesthesia: General Endotracheal Staff: Packaging Engineer: Chinedu Quinn RN Scrub Person: ST Angela Fellow: Kemar Sahni MD 2nd Packaging Engineer: Marty Clark RN 3rd Packaging Engineer: Candis Mcdaniel RN FINDINGS Berkowitz 3 day Drains: Intraabdominal (perihepatic) UNOS ID [id number], Match Run [id number] Kid WIT 27 min Kid CIT 33 [...] (Berkowitz) Triple-lumen (3-Way) 18 Fr. (Active) Status [place] Drainage 10/26/241999 Collection Container Standard drainage bag [...] Washington III, MD Anesthesia: General Endotracheal Staff: Packaging Engineer: Chinedu Quinn RN Relief Packaging Engineer: Michela Amos RN Relief Scrub: Stephani Blake RN Scrub Person: ST Angela Fellow: Kemar Sahni MD 2nd Packaging Engineer: Marty Clark RN 3rd Packaging Engineer: Candis Mcdaniel RN Estimated Blood Loss: [...] (Berkowitz) Triple-lumen (3-Way) 18 Fr. (Active) Status [place] Drainage 10/26/241999 Collection Container Standard drainage bag [...] day Drains: 2 Intraabdominal (perihepatic) UNOS ID [id number], Match Run [id number] Donor: young DCD NRP Kid WIT 27 [...] III, MD - 10/27/2024 12:00 AM EDT [facility] PATIENT NAME: BLAIR GILBERT DATE OF : 1985 CSN: [id number] PHYSICIAN: Semaj Mcnair III, MD ADMIT DATE: 10/25/2024 DICTATED BY: Semaj Mcnair III, MD SURGERY DATE: 10/27/2024 OPERATIVE REPORT SURGEON: Semaj Mcnair III, MD ANESTHESIOLOGY TECHNOLOGIST SURGEON: Kemar Sahni MD. PREOPERATIVE DIAGNOSIS: Open [...] were made hemostatic with the argon beam logger. We assessed the flows of the portal [...] a mucocele formation. We then performed a dtxh-ci-wryw choledochocholedochostomy in an end to end fashion [...] small umbilicalhernia that was closed with a deaygy-oi-aolgq 0 PDS suture. At this point, we [...] complications. SEMAJ MCNAIR III, MD RCQ/AQ JOB#: [id number] * Semaj Mcnair III, MD - 10/26/2024 7:00 AM EDT Patient Name: Blair Gilbert Date: 1985 Billing #: [id number] Date of Procedure: 10/25/2024 - 10/26/2024 Diagnosis: Chronic Hepatic Failure without coma Procedure: 1. Orthotopic Liver Transplant 2. Back Bench Preparation Donor Liver 3. Temporary portocaval shunt 4. Perihepatic packing for control of hemorrhage 5. Placement of external choledochal stent 6. Temporary abdominal closure Attending surgeons: Semaj Mcnair III, MD E M Assembler Surgeon(s): Sveta Judge MD Findings: Whole organ placed in piggyback fashion with suprahepatic cava of donor to common orifice of all three hepatic veins for IVC anastomosis. Donor main portal vein to recipient main portal vein. Donor common hepatic artery to recipient right hepatic artery. Temporary abdominal with perihepatic packingfor control of hemorrhage. Externalization of bile duct with 8 Lithuanian pediatric feeding tube. Portal Flow Modulation No [...] This donor was ABO O and UNOSID [id number], Match Run [id number]. This was a 42-year-old donation after circulatory [...] After completion of the outflow anastomosis, a Croatian clamp was placed across the donor suprahepatic [...] artery flows were then measured with the Catheter Connections device. The portal flow was 3.4 L/min [...] do a temporary abdominal closure. An 8 Lithuanian pediatric feeding tube was brought through the [...] Sveta Alves III, MD Anesthesia: General Staff: Packaging Engineer: Mak Maher RN; Marty Clark RN Scrub Person: ST Angela Resident: Thuy Leon MD matcher operator: Jose Daniel Arana RRT Estimated Blood [...] Number of days: 5 Surgery Information: -UNOS#: [id number] -ABO: O to O -Recipient: SLK candidate [...] 1:19 PM EDTAssociated Order(s): IP CONSULT TO NUCLEAR CRITICALITY SAFETY ENGINEER [facility] Transplant Discharge Education Note Assessment: [...] Gomez, MSN, RN, NPD- Diabetes Education Office [phone] Schedule: M-F 8:00am-4:30pm * Ben Weiss, RD - 10/27/2024 4:06 PM EDTAssociated Order(s): IP CONSULT TO NUTRITION SERVICES; IP CONSULT TO NUTRITION SERVICES TXP - Initial [facility] Medical Nutrition Therapy Reason(s) for [...] I/O: +23.2L net volume. Last BM Date: (CHOPPED STRAND OPERATOR). Admit Weight: 270 lb (122.5 kg) [...] hyperlipidemia 07/26/2024 Renal cell carcinoma (CMS-HCC) Thrombocytopenia ([facility]) Thyroid disease Past Surgical History: [...] Based on DBW of 93.1 kg Kcals/day: 0734-7962 (25-30 kcals/kg) Protein g/day: 140-190 (1.5-2.0 g/kg) [...] Dietitian - Solid Organ Transplant Contact via [employer] Chat * Lavell Kramer MD - 10/27/2024 11:09 AM EDTAssociated Order(s): INPATIENT CONSULT TO TRANSPLANT INFECTIOUS DISEASES Infectious Disease Consultation Patient: Blair Gilbert CSN: [id number] Assessment & Plan 39 y.o. M s/p [...] blood cx's if febrile Lavell Kramer MD [phone] Chief Complaint Long Qtc History of Present [...] Strain: Low Risk (07/09/2024) Received from [facility] Overall Financial Resource Strain (CARDIA) Difficulty of [...] No Physical Activity: Unknown (07/14/2024) Received from [facility] Exercise Vital Sign Days of Exercise per Week: Patient unable to answer Minutes of Exercise per Session: Not on file Stress: Patient Unable To Answer (07/14/2024) Received from [facility] [place] of Occupational Health - Occupational Stress Questionnaire Feeling of Stress : Patient unable to answer Social Connections: Patient Unable To Answer (07/14/2024) Received from [facility] Social Connection and Isolation Panel [NHANES] Frequency [...] to 4 times a day. DEXCOM G7 SEAFOOD HARVESTER Misc Use reader as directed. DEXCOM G7 [...] times a day. 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 No indications for ELECTRONIC INDUCTION HARDENER. Good UOP - Noted KT US WNL [...] preliminary until attending attestation. Lauren Santos, SAMSON, MANAGER OCCUPATIONAL, LENS GRINDER APPRENTICE- Transplant Nephrology [phone] Preferred contact: secure chat [1] Allergies Allergen [...] Gonzalez MD, MEd, FASN * Marcellus Hebert, CLAY WORKER, CREATIVE SERVICES DESIGNER - 10/27/2024 10:21 AM EDT HEALTH Care Management/Social Work Assessment Patient Information Patient Name: Blair Gilbert Hospital Day: 2 Inpatient/Observation: Inpatient Admit Date: 10/25/2024 Admission Diagnosis: Liver transplant recipient (CMS-HCC) [Z94.4] Attending provider: Semaj Mcnair III, MD PCP: Enedina Mcguire NP Home Pharmacy: [facility] [address] [place] [address], [facility] [address] [place] [id number] [address] [facility] [address] [facility] [address] Issues related to obtaining medications: N/A Payor Information Medical Insurance Coverage: Payor: [facility] / Plan: [facility] GLOBAL / Product Type: *No Producttype* [...] 12 weeks of CD Treatement at [facility] Do you need Substance Abuse Treatment Resources?: [...] Was any abuse reported by patient?: No [place] Status & Connection to VA Services [place] Status & Connection to VA Services Are [...] spouse at their one story home in [place]. 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 Patient's LNOK:Spouse, Abdiaziz Gilbert, Patient has no current or past history of suicidal/homicidal ideation. Patient has a history of mental health diagnoses, PTSD and Generalized Anxiety Disorder. Patient is connected with TransplantPsychiatrist and prescribed Prozac. Patient has a history of alcohol use and has completed 12 weeksof CD Treatment at [facility]. Spouse explained that he will [...] as appropriate. NUBIA Escalera, RONALDO Phone Number: [phone] * John Moreno MD - 10/26/2024 3:41 AM EDT SURGICAL ICU CONSULT NOTE 10/26/2024 3:41 AM Name: Blair Gilbert CSN: [id number] HPI: Blair Gilbert is a 39 y.o. [...] at 9:00 PM naloxone (NARCAN) 4 mg/actuation Tarina Apply 1 spray in one nostril if [...] % 250 mL infusion 2.5 mcg/min (10/26/24 3559) insulin regular in 0.9 % sodium chloride norepinephrine 18 mcg/min (10/26/24 8733) vasopressin 0.04 Units/min (10/26/24 8174) PRN Meds: heparin (porcine) 5,000 unit/mL 10,000 [...] input(s): PHART , PCO2 , PO2ART , IZA8BKL , BEART in the last 72 hours. [...] at baseline or with provocation, shows no sljjg-jn-kxdg atrial level shunt. - Pulmonary arteries: Systolic [...] IV pantoprazole while intubated, NPO Last BM: CHOPPED STRAND OPERATOR Bowel regimen: Senna/Miralax when able Nausea: Zofran PRN FLUID/ELECTROLYTES Recent Labs 10/25/242216 NA 137 K 2.1* CL 100 CO2 20* BUN 74* CREATININE 3.87* CALCIUM 9.3 PHOS 5.9* GLUCOSE 114* Intake/Output Summary (Last 24 hours) at 10/26/2024 0341 Last data filed at 10/26/2024 0326 Gross per 24 hour Intake 64507 ml Output 675 ml Net 70995 ml IV Fluids: EPINEPHrine (ADRENALIN) 10 mg in sodium chloride 0.9 % 250 mL infusion, Last Rate: 2.5 mcg/min (10/26/24 033) insulin regular in 0.9 % sodium chloride [...] results for input(s): TEGANGLE , TEGKTIME , IFPSMHWC78 , TEGMAXAMPL , TEGRTIME , CBMZ in [...] in sodium chloride 0.9% 100 mL IVPB (Bkvd6Lgu) 2 g Every 6 hours 10/26/2024 -- Admin Instructions: Use Fhfd5Kmk Adapter - Mix Thoroughly Before Administration Notes to Pharmacy: On food service order clerk estimated creatinine clearance is 35.9 mL/min (A) (based on SCr of 3.87 mg/dL (H)). Route: Intravenous AMPicillin 2 g in sodium chloride 0.9% 100 mL IVPB (Fmhu0Ofp) 2 g Once 10/26/2024 -- Admin Instructions: Use Oazh6Yid Adapter - Mix Thoroughly Before Administration Notes to Pharmacy: On food service order clerk estimated creatinine clearance is 35.9 mL/min (A) (based on SCr of 3.87 mg/dL (H)). Route: Intravenous cefTRIAXone (ROCEPHIN) 2 g in sodium chloride 0.9 % 100 mL Yvaz1Oqg (Completed) 2 g Once 10/25/2024 10/26/2024 Admin Instructions: Use Wpzx8Pju Adapter - Mix Thoroughly Before Administration Route: [...] 47 (H) 10/26/2024 PO2ART 127 (H) 10/26/2024 LEQ5KAA 21 (L) 10/26/2024 BEART -5.4 (L) 10/26/2024 ANK1EVA 94.6 (L) 10/26/2024 E1CBVNAR 98 10/26/2024 P:F ratio = 363 CARDIOVASCULAR: [...] Acute Care Surgery, and Surgical Critical Care [facility] Academic Office [phone] For Transfers, call [phone] documented in this encounter Nursing Notes * [...] Progressing * Care Coordination - NUBIA Escalera, CREATIVE SERVICES DESIGNER - 10/31/2024 11:34 AM EDT [facility] Case Management/Social Work Department Progress Note [...] disease. PCP: Enedina Mcguire NP Home Pharmacy: [facility] [address] [place] [address] [facility] [address] [facility] [address] [facility] NAA Baum - [address] [facility] [place] [address] Medical Insurance Coverage: Payor: [facility] / Plan: [employer] / Product Type: *No Product type* / Other Pertinent Information MEREDITH received report from Transplant medical team. SW completed chart review. Per report patient is not medically ready to discharge. Patient recommended for home PT/OT and 2x weekly labs. SW followed up on [facility] referrals and submitted a few more [facility] referrals. Update: MEREDITH made nurse educator aware that there were no accepting [facility] agencies([facility], [facility], [facility]) and patient would need to outpatient for PT/OT and labs. Discharge Plan Anticipated discharge plan: Home with HHC vs Home with outpatient Anticipated discharge date: 11/01 CM/SW will continue to follow and remain available for discharge planning needs. NUBIA Escalera, RONALDO Cell [phone] * Plan of Care - Paulette Flannery [...] Citlaly Nova - 10/29/2024 1:53 PM EDT [facility] Case Management/Social Work Department Progress Note [...] disease. PCP: Enedina Mcguire NP Home Pharmacy: [facility] [address] [address] [facility] [address] [facility] [address] [facility] NAA Baum - [address] [place] [phone] Medical Insurance Coverage: Payor: [employer] [facility] [facility] [...] referral. SW submitted blanket HHC referral to [facility], [facility], [facility], and [facility]. Awaiting responses. SW to followpending [...] available for discharge planning needs. NUBIA Rhodes, CREATIVE SERVICES DESIGNER Inpatient Lard Refiner/Care Coordination [phone] * Plan of Care - Soco Yap [...] Escalera LSW - 10/28/2024 2:29 PM EDT [facility] Case Management/Social Work Department Progress Note Patient Information Patient Name: Blair Gilbert Hospital day: 3 Inpatient/Observation: Inpatient Level of Care: Transplant Admit date: 10/25/2024 Admission diagnosis: Liver transplant recipient (CMS-HCC) [Z94.4] PMH: has a past medical history of Alcoholic cirrhosis of liver (CMS-HCC), Esophageal varices (CMS-HCC), Hepatorenal syndrome ([facility]), Hypertension, Other hyperlipidemia (07/26/2024), Renal cell carcinoma ([facility]), Thrombocytopenia ([facility]), and Thyroid disease. PCP: Enedina Mcguire NP Home Pharmacy: [facility] [address] [place] [address] [facility] [address] [facility] [address] [facility] Deya NAA Falk - [address] [facility] [address] [place] [place] [address] Medical Insurance Coverage: Payor: [facility] / Plan: [employer] [...] discharge planning needs. NUBIA Escalera, RONALDO Cell [phone] * Plan of Care - Elaine Carrillo [...] at all times. Outcome: Completed Problem: Non-violent, ocf-jyah-cpicnmnghyu restraints Description: Less restrictive alternative interventions will [...] of medical procedures, or protection of medical customer service representative access. Outcome: Completed * Plan of Care [...] foods as appropriate. Outcome: Progressing Problem: Non-violent, wwc-okco-wcnimomtwyp restraints Description: Less restrictive alternative interventions will [...] of medical procedures, or protection of medical customer service representative access. Outcome: Progressing * Plan of Care - Shanel Shen RN - 10/27/2024 9:00 AM EDT Problem: Non-violent, mox-dkob-yndtdowlvhf restraints Description: Less restrictive alternative interventions will [...] - 10/26/2024 7:41 PM EDT Problem: Non-violent, nyg-csfv-prdezjctfkq restraints Description: Less restrictive alternative interventions will [...] of medical procedures, or protection of medical customer service representative access. Outcome: Not Progressing Patient in bilateral [...] restraint flowsheet for further documentation. Problem: Non-violent, fyn-lvkw-vgxtztcxkge restraints Description: Less restrictive alternative interventions will [...] of medical procedures, or protection of medical customer service representative access. Outcome: Progressing * Plan of Care [...] Routine Acute kidney injury superimposed on CKD ([facility]) Release Upon Ordering for 1 Occurrences starting 10/27/2024 Fungus culture Microbiology Routine Acute kidney injury superimposed on CKD ([facility]) Release Upon Ordering for 1 Occurrences starting 10/27/2024 Routine Culture plus Stain Microbiology Routine Acute kidney injury superimposed on CKD ([facility]) Release Upon Ordering for 1 Occurrences starting 10/27/2024 Surgical Pathology Exam Pathology and Cytology Routine Acute kidney injury superimposed on CKD ([facility]) Release Upon Ordering for 1 Occurrences starting [...] Routine 10/31/2024 11:59 AM EDT US DUPLEX MEH-AYAFLN-YRPGLLB COMPLETE Routine 10/31/2024 10:19 AM EDT US [...] Routine 10/28/2024 5:31 PM EDT US DUPLEX ZEW-BZPIQZ-SOYRWTX COMPLETE STAT 10/28/2024 4:23 PM EDT US [...] Routine 10/27/2024 10:00 AM EDT US DUPLEX LBO-MYJQDC-JHFCGWM COMPLETE STAT 10/27/2024 9:51 AM EDT US [...] EDT Acute kidney injury superimposed on CKD ([facility]) AK RENAL ALTRNSPLJ IMPLTJ GRF W/LEAD PROGRAMMER ANALYST NEPHRECTOMY 10/27/2024 2:32 AM EDT Acute kidney injury superimposed on CKD ([facility]) 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 smith [...] - 100 mg/dL 11/02/2024 5:45 PM EDT [facility] Blood 11/02/2024 5:44 PM EDT 11/02/2024 5:45 PM EDT Semaj Mcnair III, MD POINT OF CARE TEST ORDERABLES Final Result Performing Organization Address [facility] Co de Phone Number [facility] [address] [facility] * (ABNORMAL) POC Glucose Monitoring Device (11/02/2024 3:34 PM EDT) POC Glucose Monitoring Device 208(H) 70 - 100 mg/dL 11/02/2024 3:35 PM EDT [facility] Blood 11/02/2024 3:34 PM EDT 11/02/2024 3:35 PM EDT Semaj Mcnair III, MD POINT OF CARE TEST ORDERABLES Final Result Performing Organization Address [facility] Co de Phone Number [facility] [address] [facility]. [address] * (ABNORMAL) POC Glucose Monitoring Device (11/02/2024 1:18 PM EDT) POC Glucose Monitoring Device 225(H) 70 - 100 mg/dL 11/02/2024 1:19 PM EDT [facility] Blood 11/02/2024 1:18 PM EDT 11/02/2024 1:19 PM EDT Semaj Mcnair III, MD POINT OF CARE TEST ORDERABLES Final Result Performing Organization Address City/[facility] Co de Phone Number [facility] [address] [facility]. [address] * (ABNORMAL) POC Glucose Monitoring Device (11/02/2024 8:59 AM EDT) POC Glucose Monitoring Device 129(H) 70 - 100 mg/dL 11/02/2024 9:00 AM EDT [facility] Blood 11/02/2024 8:59 AM EDT 11/02/2024 9:00 AM EDT Semaj Mcnair III, MD POINT OF CARE TEST ORDERABLES Final Result Performing Organization Address City/[facility]/ZIP Co de Phone Number [facility] [address] * Tacrolimus level (11/02/2024 5:53 AM EDT) Tacrolimus (LC-MS) 7.4 3.0 - 15.0 ng/mL 11/02/2024 2:23 PM EDT [facility] Comment:Performed via liquid chromatography tandem mass spectrometry. Detection limit: 1 ng/mL. Individual target concentrations may vary due to target organ and time after transplant. This test has been developed and its performance characteristics determined by [facility] which is certified under the [...] l Result Performing Organization Address City/[facility] Co de Phone Number [facility] [address] [facility]. [address] * (ABNORMAL) Renal Function Panel w/EGFR (11/02/2024 5:53 AM EDT) Sodium 140 133 - 146 mmol/L 11/02/2024 6:47 AM EDT [facility] Potassium 3.3(L) 3.5 - 5.3 mmol/L 11/02/2024 6:47 AM EDT [facility] Chloride 107 98 - 110 mmol/L 11/02/2024 6:47 AM EDT [facility] CO2 25 21 - 33 mmol/L 11/02/2024 6:47 AM EDT [facility] Anion Gap 8 3 - 16 mmol/L 11/02/2024 6:47 AM EDT [facility] BUN 31(H) 7 - 25 mg/dL 11/02/2024 6:47 AM EDT [facility] Creatinine 1.08 0.60 - 1.30 mg/dL 11/02/2024 6:47 AM EDT [facility] Glucose 150(H) 70 - 100 mg/dL 11/02/2024 6:47 AM EDT [facility] Calcium 7.8(L) 8.6 - 10.3 mg/dL 11/02/2024 6:47 AM EDT [facility] Phosphorus 2.0(L) 2.1 - 4.7 mg/dL 11/02/2024 6:47 AM EDT [facility] Albumin 3.2(L) 3.5 - 5.7 g/dL 11/02/2024 6:47 AM EDT [facility] Osmolality, Calculated 299 278 - 305 mOsm/kg 11/02/2024 6:47 AM EDT [facility] EGFR 88 11/02/2024 6:47 AM EDT [facility] Comment:As of 2021, the estimated [...] 11/02/2024 6:12 AM EDT us Beata Horner [facility] BLOOD ORDERABLES Denisse l Result [facility] [address] * (ABNORMAL) Magnesium (11/02/2024 5:53 AM EDT) Magnesium 1.3(L) 1.5 - 2.5 mg/dL 11/02/2024 6:47 AM EDT [facility] Plasma 11/02/2024 5:53 AM EDT 11/02/2024 6:12 AM EDT Beata Horner [facility] BLOOD ORDERABLES Denisse l Result [facility] [address] [facility]. [address] * (ABNORMAL) Hepatic Function Panel (11/02/2024 5:53 AM EDT) Total Bilirubin 1.6(H) 0.0 - 1.5 mg/dL 11/02/2024 6:47 AM EDT [facility] Bilirubin, Direct 0.81(H) 0.00 - 0.40 mg/dL 11/02/2024 6:47 AM EDT [facility] AST 30 13 - 39 U/L 11/02/2024 6:47 AM EDT [facility] ALT 66(H) 7 - 52 U/L 11/02/2024 6:47 AM EDT [facility] Alkaline Phosphatase 126(H) 36 - 125 U/L 11/02/2024 6:47 AM EDT [facility] Total Protein 4.6(L) 6.4 - 8.9 g/dL 11/02/2024 6:47 AM EDT [facility] Albumin 3.2(L) 3.5 - 5.7 g/dL 11/02/2024 6:47 AM EDT [facility] Bilirubin, Indirect 0.79 0.00 - 1.10 mg/dL 11/02/2024 6:47 AM EDT [facility] Plasma 11/02/2024 5:53 AM EDT 11/02/2024 6:12 AM EDT [place] Horner [facility] BLOOD ORDERABLES Denisse l Result [facility] [address] * (ABNORMAL) CBC (11/02/2024 5:53 AM EDT) [facility] WBC 5.8 3.8 - 10.8 10E3/uL 11/02/2024 6:21 AM EDT [facility] RBC 3.12(L) 4.20 - 5.80 10E6/uL 11/02/2024 6:21 AM EDT [facility] Hemoglobin 9.2(L) 13.2 - 17.1 g/dL 11/02/2024 6:21 AM EDT [facility] Hematocrit 27.5(L) 38.5 - 50.0 % 11/02/2024 6:21 AM EDT [facility] MCV 87.9 80.0 - 100.0 fL 11/02/2024 6:21 AM EDT [facility] MCH 29.5 27.0 - 33.0 pg 11/02/2024 6:21 AM EDT [facility] MCHC 33.5 32.0 - 36.0 g/dL 11/02/2024 6:21 AM EDT [facility] RDW 17.5(H) 11.0 - 15.0 % 11/02/2024 6:21 AM EDT [facility] Platelets 61(L) 140 - 400 10E3/uL 11/02/2024 6:21 AM EDT [facility] MPV 7.9 7.5 - 11.5 fL 11/02/2024 6:21 AM EDT [facility] Whole Blood 11/02/2024 5:53 AM EDT 11/02/2024 6:12 AM EDT [facility] Dada Horner [facility] BLOOD ORDERABLES Denisse l Result [facility] [address] [place] [address], [facility] * (ABNORMAL) POC Glucose Monitoring Device (11/01/2024 9:26 PM EDT) POC Glucose Monitoring Device 199(H) 70 - 100 mg/dL 11/01/2024 9:27 PM EDT [facility] Blood 11/01/2024 9:26 PM EDT 11/01/2024 9:27 PM EDT Semaj Mcnair III, MD POINT OF CARE TEST ORDERABLES Final Result [facility] [address] * (ABNORMAL) POC Glucose Monitoring Device (11/01/2024 5:04 PM EDT) POC Glucose Monitoring Device 255(H) 70 - 100 mg/dL 11/01/2024 5:05 PM EDT [facility] Blood 11/01/2024 5:04 PM EDT 11/01/2024 5:05 PM EDT Semaj Mcnair III, MD POINT OF CARE TEST ORDERABLES Final Result Performing Organization Address City/[facility] Co de Phone Number [facility] [address] [place] [address] * (ABNORMAL) Renal Function Panel w/EGFR, STAT (11/01/2024 2:17 PM EDT) Sodium 139 133 - 146 mmol/L 11/01/2024 3:10 PM EDT [facility] Potassium 3.3(L) 3.5 - 5.3 mmol/L 11/01/2024 3:10 PM EDT [facility] Chloride 107 98 - 110 mmol/L 11/01/2024 3:10 PM EDT [facility] CO2 24 21 - 33 mmol/L 11/01/2024 3:10 PM EDT [facility] Anion Gap 8 3 - 16 mmol/L 11/01/2024 3:10 PM EDT [facility] BUN 35(H) 7 - 25 mg/dL 11/01/2024 3:10 PM EDT [facility] Creatinine 1.22 0.60 - 1.30 mg/dL 11/01/2024 3:10 PM EDT [facility] Glucose 203(H) 70 - 100 mg/dL 11/01/2024 3:10 PM EDT [facility] Calcium 8.3(L) 8.6 - 10.3 mg/dL 11/01/2024 3:10 PM EDT [facility] Phosphorus 2.2 2.1 - 4.7 mg/dL 11/01/2024 3:10 PM EDT [facility] Albumin 3.4(L) 3.5 - 5.7 g/dL 11/01/2024 3:10 PM EDT [facility] Osmolality, Calculated 302 278 - 305 mOsm/kg 11/01/2024 3:10 PM EDT [facility] EGFR 76 11/01/2024 3:10 PM EDT [facility] Comment:As of 2021, the estimated [...] Marks MD LAB BLOOD ORDERABLES Final Result [facility] [address] [facility] [place] [address], [facility] * X-ray Portable [...] - 100 mg/dL 11/01/2024 12:23 PM EDT [facility] Blood 11/01/2024 12:2 2 PM EDT 11/01/2024 12:23 PM EDT Semaj Mcnair III, MD POINT OF CARE TEST ORDERABLES Final Result Performing Organization Address City/[facility] Co de Phone Number [facility] [address] * (ABNORMAL) POC Glucose Monitoring Device (11/01/2024 8:50 AM EDT) POC Glucose Monitoring Device 175(H) 70 - 100 mg/dL 11/01/2024 8:51 AM EDT [facility] Blood 11/01/2024 8:50 AM EDT 11/01/2024 8:51 AM EDT Semaj Mcnair III, MD POINT OF CARE TEST ORDERABLES Final Result Performing Organization Address [facility] de Phone Number [facility] [address] [place] [address]. [address] * Tacrolimus level (11/01/2024 6:01 AM EDT) Tacrolimus (LC-MS) 7.5 3.0 - 15.0 ng/mL 11/01/2024 12:14 PM EDT [facility] Comment:Performed via liquid chromatography tandem mass spectrometry. Detection limit: 1 ng/mL. Individual target concentrations may vary due to target organ and time after transplant. This test has been developed and its performance characteristics determined by [facility] which is certified under the [...] City/[facility]/ZIP Co de Phone Number [facility] [address] [place] [address], [facility] * (ABNORMAL) Renal Function Panel w/EGFR (11/01/2024 6:01 AM EDT) Sodium 139 133 - 146 mmol/L 11/01/2024 6:57 AM EDT [facility] Potassium 3.3(L) 3.5 - 5.3 mmol/L 11/01/2024 6:57 AM EDT [facility] Chloride 108 98 - 110 mmol/L 11/01/2024 6:57 AM EDT [facility] CO2 22 21 - 33 mmol/L 11/01/2024 6:57 AM EDT [facility] Anion Gap 9 3 - 16 mmol/L 11/01/2024 6:57 AM EDT [facility] BUN 37(H) 7 - 25 mg/dL 11/01/2024 6:57 AM EDT [facility] Creatinine 1.30 0.60 - 1.30 mg/dL 11/01/2024 6:57 AM EDT [facility] Glucose 163(H) 70 - 100 mg/dL 11/01/2024 6:57 AM EDT [facility] Calcium 8.2(L) 8.6 - 10.3 mg/dL 11/01/2024 6:57 AM EDT [facility] Phosphorus 2.9 2.1 - 4.7 mg/dL 11/01/2024 6:57 AM EDT [facility] Albumin 3.1(L) 3.5 - 5.7 g/dL 11/01/2024 6:57 AM EDT [facility] Osmolality, Calculated 300 278 - 305 mOsm/kg 11/01/2024 6:57 AM EDT [facility] EGFR 71 11/01/2024 6:57 AM EDT [facility] Comment:As of 2021, the estimated [...] 11/01/2024 6:20 AM EDT Beata Garland Evens [facility] BLOOD ORDERABLES Denisse l Result Performing Organization Address City/[facility]/ZIP Co de Phone Number [facility] [address] [facility]. [address] * Magnesium (11/01/2024 6:01 AM EDT) Magnesium 1.5 1.5 - 2.5 mg/dL 11/01/2024 6:57 AM EDT [facility] Plasma 11/01/2024 6:01 AM EDT 11/01/2024 6:20 AM EDT [facility] Denisse l Result Performing Organization Address [facility] Co de Phone Number [facility] [address] [place] [address]. [address] * (ABNORMAL) Hepatic Function Panel (11/01/2024 6:01 AM EDT) Total Bilirubin 2.0(H) 0.0 - 1.5 mg/dL 11/01/2024 6:57 AM EDT [facility] Bilirubin, Direct 1.06(H) 0.00 - 0.40 mg/dL 11/01/2024 6:57 AM EDT [facility] AST 21 13 - 39 U/L 11/01/2024 6:57 AM EDT [facility] ALT 62(H) 7 - 52 U/L 11/01/2024 6:57 AM EDT [facility] Alkaline Phosphatase 114 36 - 125 U/L 11/01/2024 6:57 AM EDT [facility] Total Protein 4.6(L) 6.4 - 8.9 g/dL 11/01/2024 6:57 AM EDT [facility] Albumin 3.1(L) 3.5 - 5.7 g/dL 11/01/2024 6:57 AM EDT [facility] Bilirubin, Indirect 0.94 0.00 - 1.10 mg/dL 11/01/2024 6:57 AM EDT [facility] Plasma 11/01/2024 6:01 AM EDT 11/01/2024 6:20 AM EDT us Beata Horner [facility] BLOOD ORDERABLES Denisse l Result [facility] [address] [place] [address], [facility] * (ABNORMAL) CBC (11/01/2024 6:01 AM EDT) WBC 5.9 3.8 - 10.8 10E3/uL 11/01/2024 6:29 AM EDT [facility] RBC 3.19(L) 4.20 - 5.80 10E6/uL 11/01/2024 6:29 AM EDT [facility] Hemoglobin 9.5(L) 13.2 - 17.1 g/dL 11/01/2024 6:29 AM EDT [facility] Hematocrit 27.8(L) 38.5 - 50.0 % 11/01/2024 6:29 AM EDT [facility] MCV 87.1 80.0 - 100.0 fL 11/01/2024 6:29 AM EDT [facility] MCH 29.9 27.0 - 33.0 pg 11/01/2024 6:29 AM EDT [facility] MCHC 34.3 32.0 - 36.0 g/dL 11/01/2024 6:29 AM EDT [facility] RDW 17.4(H) 11.0 - 15.0 % 11/01/2024 6:29 AM EDT [facility] Platelets 56(L) 140 - 400 10E3/uL 11/01/2024 6:29 AM EDT [facility] MPV 8.3 7.5 - 11.5 fL 11/01/2024 6:29 AM EDT [facility] Whole Blood 11/01/2024 6:01 AM EDT 11/01/2024 6:19 AM EDT Beata Horner [facility] BLOOD ORDERABLES Denisse l Result [facility] [address] [facility]. [address] * (ABNORMAL) POC Glucose Monitoring Device (10/31/2024 9:15 PM EDT) POC Glucose Monitoring Device 171(H) 70 - 100 mg/dL 10/31/2024 9:15 PM EDT [facility] Blood 10/31/2024 9:15 PM EDT 10/31/2024 9:15 PM EDT Semaj Mcnair III, MD POINT OF CARE TEST ORDERABLES Final Result Performing Organization Address City/[facility]/ZIP Co de Phone Number [facility] [address] [facility]. [address] * (ABNORMAL) POC Glucose Monitoring Device (10/31/2024 5:56 PM EDT) POC Glucose Monitoring Device 179(H) 70 - 100 mg/dL 10/31/2024 5:57 PM EDT [facility] Blood 10/31/2024 5:56 PM EDT 10/31/2024 5:57 PM EDT Semaj Mcnair III, MD POINT OF CARE TEST ORDERABLES Final Result [facility] [address] [facility]. [address] * CT Abdomen and Pelvis WO [...] Adrenal gland: No focal nodule seen. Kidneys: [place] kidneys noted with nonobstructing calcifications on the right. Findings of postsurgical changes in the left [place] kidney. Mild right hydronephrosis without an obstructive [...] Adrenal gland: No focal nodule seen. Kidneys: [place] kidneys noted with nonobstructing calcifications on theright. Findings of postsurgical changes in the left [place] kidney. Mildright hydronephrosis without an obstructive course [...] QT: 400 ms QTc: 456 ms P [place]: 49 degrees R [place]: 3 degrees T [place]: 14 degrees Diagnosis Line: NORMAL SINUS RHYTHM ^ NORMAL ECG ^ ^ Confirmed by MD JEANETTE, TORI ([id number]) on 11/02/2024 6:56:52 AM Priti Geiger [facility] ECG ORDERABLES Final Result MUSE * (ABNORMAL) Urinalysis w/Rfl to Microscopic (10/31/2024 1:18 PM EDT) Color, UA Straw Yellow,Straw 10/31/2024 1:46 PM EDT [facility] Clarity, UA Clear Clear 10/31/2024 1:46 PM EDT [facility] Specific [place], UA 1.013 1.005 - 1.035 10/31/2024 1:46 PM EDT [facility] pH, UA 6.5 5.0 - 8.0 10/31/2024 1:46 PM EDT [facility] Protein, UA Negative Negative mg/dL 10/31/2024 1:46 PM EDT [facility] Glucose, UA Negative Negative mg/dL 10/31/2024 1:46 PM EDT [facility] Ketones, UA Negative Negative mg/dL 10/31/2024 1:46 PM EDT [facility] Bilirubin, UA Negative Negative 10/31/2024 1:46 PM EDT [facility] Blood, UA Large(A) Negative 10/31/2024 1:46 PM EDT [facility] Nitrite, UA Negative Negative 10/31/2024 1:46 PM EDT [facility] Urobilinogen, UA <2.0 0.2 - 1.9 mg/dL 10/31/2024 1:46 PM EDT [facility] Leukocyte Esterase, UA Negative Negative 10/31/2024 1:46 PM EDT [facility] RBC, UA >100(H) 0 - 3 /HPF 10/31/2024 1:46 PM EDT [facility] WBC, UA 3 0 - 5 /HPF 10/31/2024 1:46 PM EDT [facility] Hyaline Casts, UA 3(H) 0 - 2 /LPF 10/31/2024 1:46 PM EDT [facility] Urine 10/31/2024 1:18 PM EDT 10/31/2024 1:32 PM EDT Priti Geiger CNP URINE ORDERABLES Final Result Performing Organization Address City/[facility] Co de Phone Number [facility] [address] * (ABNORMAL) Post Kidney Transplant Urine Culture (10/31/2024 1:18 PM EDT) Culture Result Enterococcus faecium, Vancomycin Resistant(A) [facility] Comment: 1,000- <10,000 cfu/mL Identified [...] ORDERA BLES Final Result Performing Organization Address [facility] Co de Phone Number [facility] [address] [facility]. [address] * (ABNORMAL) POC Glucose Monitoring Device (10/31/2024 11:59 AM EDT) POC Glucose Monitoring Device 130(H) 70 - 100 mg/dL 10/31/2024 12:21 PM EDT [facility] Blood 10/31/2024 11:5 9 AM EDT 10/31/2024 12:21 PM EDT Semaj Mcnair III, MD POINT OF CARE TEST ORDERABLES Final Result [facility] [address] [place] [address], [facility] * US Abdomen Limited (10/31/2024 10:19 [...] EXAM: US ABDOMEN LIMITED EXAM: US DUPLEX [id number] COMPLETE INDICATION: Post-op liver transplant COMPARISON: None [...] visualized secondary to poor acoustic windows. The [place] right kidney measures 11.6 cm in length. [...] EXAM: US ABDOMEN LIMITED EXAM: US DUPLEX [id number] COMPLETE INDICATION: Post-op liver transplant COMPARISON: None [...] well visualized secondary to poor acousticwindows. The [place] right kidney measures 11.6 cm in length. [...] at 10/31/2024 10:35 AM EDT Beata Horner [facility] US ORDERABLES Final R esult [...] 10/31/2024 10:29 AM EDT us Beata Horner [facility] IM US ORDERABLES Final R esult * US Duplex [id number] Comp (10/31/2024 10:19 AM EDT) Anatomical Region [...] EXAM: US ABDOMEN LIMITED EXAM: US DUPLEX [id number] COMPLETE INDICATION: Post-op liver transplant COMPARISON: None [...] visualized secondary to poor acoustic windows. The [place] right kidney measures 11.6 cm in length. [...] portion of the IVC. Procedure Note Declan eCrda MD - 10/31/2024 EXAM: US ABDOMEN LIMITED EXAM: US DUPLEX [id number] COMPLETE INDICATION: Post-op liver transplant COMPARISON: None [...] well visualized secondary to poor acousticwindows. The [place] right kidney measures 11.6 cm in length. [...] AM EDT us Beata Horner [facility] US ORDERABLES Final R esult * ECG 12-lead (MUSE) (10/31/2024 8:57 AM EDT) 10/31/2024 8:57 AM EDT Narrative MUSE - 11/01/2024 9:21 AM EDT Ventricular Rate: 83 BPM Atrial Rate: 83 BPM P-R Interval: 168 ms QRS Duration: 102 ms QT: 392 ms QTc: 460 ms P [place]: 64 degrees R [place]: -18 degrees T [place]: 7 degrees Diagnosis Line: NORMAL SINUS RHYTHM ^ NORMAL ECG ^ ^ Confirmed by MD JOE, OTIS ([id number]) on 11/01/2024 9:21:13 AM us Priti Geiger [facility] ECG ORDERABLES Final Result Performing Organization Address City/[facility]/ZIP Co de Phone Number MUSE * (ABNORMAL) POC Glucose Monitoring Device (10/31/2024 8:44 AM EDT) [facility] POC Glucose Monitoring Device 145(H) 70 - 100 mg/dL 10/31/2024 8:45 AM EDT [facility] Blood 10/31/2024 8:44 AM EDT 10/31/2024 8:44 AM EDT Semaj Mcnair III, MD POINT OF CARE TEST ORDERABLES Final Result Performing Organization Address [facility] Co de Phone Number [facility] [address] [facility]. [address] * Tacrolimus level (10/31/2024 6:40 AM EDT) [facility] Tacrolimus (LC-MS) 8.4 3.0 - 15.0 ng/mL 10/31/2024 10:05 AM EDT [facility] Comment:Performed via liquid chromatography tandem mass spectrometry. Detection limit: 1 ng/mL. Individual target concentrations may vary due to target organ and time after transplant. This test has been developed and its performance characteristics determined by [facility] which is certified under the [...] ORDERABLES Denisse l Result Performing Organization Address [facility]/ZIP Co de Phone Number [facility] [address] [facility]. [address] * (ABNORMAL) Renal Function Panel w/EGFR (10/31/2024 6:40 AM EDT) [facility] Sodium 141 133 - 146 mmol/L 10/31/2024 8:09 AM EDT [facility] Potassium 3.5 3.5 - 5.3 mmol/L 10/31/2024 8:09 AM EDT [facility] Chloride 111(H) 98 - 110 mmol/L 10/31/2024 8:09 AM EDT [facility] CO2 20(L) 21 - 33 mmol/L 10/31/2024 8:09 AM EDT [facility] Anion Gap 10 3 - 16 mmol/L 10/31/2024 8:09 AM EDT [facility] BUN 54(H) 7 - 25 mg/dL 10/31/2024 8:09 AM EDT [facility] Creatinine 1.75(H) 0.60 - 1.30 mg/dL 10/31/2024 8:09 AM EDT [facility] Glucose 136(H) 70 - 100 mg/dL 10/31/2024 8:09 AM EDT [facility] Calcium 8.7 8.6 - 10.3 mg/dL 10/31/2024 8:09 AM EDT [facility] Phosphorus 4.1 2.1 - 4.7 mg/dL 10/31/2024 8:09 AM EDT [facility] Albumin 3.2(L) 3.5 - 5.7 g/dL 10/31/2024 8:09 AM EDT [facility] Osmolality, Calculated 309(H) 278 - 305 mOsm/kg 10/31/2024 8:09 AM EDT [facility] EGFR 50 10/31/2024 8:09 AM EDT [facility] Comment:As of 2021, the estimated [...] AM EDT 10/31/2024 7:35 AM EDT Beata [place] Horner [facility] LAB BLOOD ORDERABLES Denisse l Result Performing Organization Address City/[facility]/ZIP Co de Phone Number [facility] [address] [facility]. [address] * Magnesium (10/31/2024 6:40 AM EDT) Magnesium 1.8 1.5 - 2.5 mg/dL 10/31/2024 8:09 AM EDT [facility] Plasma 10/31/2024 6:40 AM EDT 10/31/2024 7:35 AM EDT Critical access hospital [place] Horner [facility] BLOOD ORDERABLES Denisse l Result Performing Organization Address [facility] Co de Phone Number [facility] [address] [facility]. [address] * (ABNORMAL) Hepatic Function Panel (10/31/2024 6:40 AM EDT) Total Bilirubin 2.7(H) 0.0 - 1.5 mg/dL 10/31/2024 8:09 AM EDT [facility] Bilirubin, Direct 1.57(H) 0.00 - 0.40 mg/dL 10/31/2024 8:09 AM EDT [facility] AST 26 13 - 39 U/L 10/31/2024 8:09 AM EDT [facility] ALT 68(H) 7 - 52 U/L 10/31/2024 8:09 AM EDT [facility] Alkaline Phosphatase 112 36 - 125 U/L 10/31/2024 8:09 AM EDT [facility] Total Protein 4.7(L) 6.4 - 8.9 g/dL 10/31/2024 8:09 AM EDT [facility] Albumin 3.2(L) 3.5 - 5.7 g/dL 10/31/2024 8:09 AM EDT [facility] Bilirubin, Indirect 1.13(H) 0.00 - 1.10 mg/dL 10/31/2024 8:09 AM EDT [facility] Plasma 10/31/2024 6:40 AM EDT 10/31/2024 7:35 AM EDT us Beata Horner [facility] LAB BLOOD ORDERABLES Denisse l Result [facility] [address] [place] [address], [facility] * (ABNORMAL) CBC (10/31/2024 6:40 AM EDT) WBC 6.0 3.8 - 10.8 10E3/uL 10/31/2024 8:05 AM EDT [facility] RBC 3.14(L) 4.20 - 5.80 10E6/uL 10/31/2024 8:05 AM EDT [facility] Hemoglobin 9.6(L) 13.2 - 17.1 g/dL 10/31/2024 8:05 AM EDT [facility] Hematocrit 27.5(L) 38.5 - 50.0 % 10/31/2024 8:05 AM EDT [facility] MCV 87.6 80.0 - 100.0 fL 10/31/2024 8:05 AM EDT [facility] MCH 30.7 27.0 - 33.0 pg 10/31/2024 8:05 AM EDT [facility] MCHC 35.0 32.0 - 36.0 g/dL 10/31/2024 8:05 AM EDT [facility] RDW 17.9(H) 11.0 - 15.0 % 10/31/2024 8:05 AM EDT [facility] Platelets 44(L) 140 - 400 10E3/uL 10/31/2024 8:05 AM EDT [facility] Comment: CNV Specimen checked for clots. None detected. MPV 8.9 7.5 - 11.5 fL 10/31/2024 8:05 AM EDT [facility] Whole Blood 10/31/2024 6:40 AM EDT 10/31/2024 7:34 AM EDT Beata Horner [facility] BLOOD ORDERABLES Denisse l Result [facility] [address] [facility]. [address] * (ABNORMAL) POC Glucose Monitoring Device (10/30/2024 9:01 PM EDT) POC Glucose Monitoring Device 144(H) 70 - 100 mg/dL 10/30/2024 9:02 PM EDT [facility] Blood 10/30/2024 9:01 PM EDT 10/30/2024 9:01 PM EDT us Semaj Mcnair III, MD POINT OF CARE TEST ORDERABLES Final Result Performing Organization Address City/[facility]/ZIP Co de Phone Number [facility] [address] [facility]. [address] * (ABNORMAL) POC Glucose Monitoring Device (10/30/2024 5:37 PM EDT) POC Glucose Monitoring Device 124(H) 70 - 100 mg/dL 10/30/2024 5:47 PM EDT [facility] Blood 10/30/2024 5:37 PM EDT 10/30/2024 5:47 PM EDT Semaj Mcnair III, MD POINT OF CARE TEST ORDERABLES Final Result [facility] [address] [facility]. [address] * (ABNORMAL) POC Glucose Monitoring Device (10/30/2024 7:26 AM EDT) POC Glucose Monitoring Device 150(H) 70 - 100 mg/dL 10/30/2024 7:27 AM EDT [facility] Blood 10/30/2024 7:26 AM EDT 10/30/2024 7:27 AM EDT Semaj Mcnair III, MD POINT OF CARE TEST ORDERABLES Final Result Performing Organization Address [facility] Co de Phone Number [facility] [address] * Tacrolimus level (10/30/2024 7:13 AM EDT) Tacrolimus (LC-MS) 9.5 3.0 - 15.0 ng/mL 10/30/2024 2:53 PM EDT [facility] Comment:Performed via liquid chromatography tandem mass spectrometry. Detection limit: 1 ng/mL. Individual target concentrations may vary due to target organ and time after transplant. This test has been developed and its performance characteristics determined by [facility] which is certified under the Clinical [...] EDT 10/30/2024 7:26 AM EDT Priti Geiger [facility] BLOOD ORDERABLES Final Re sult Performing Organization Address [facility] Co de Phone Number [facility] [address] [facility]. [address] * ECG 12-lead (MUSE) (10/30/2024 6:51 AM EDT) 10/30/2024 6:51 AM EDT Narrative MUSE - 11/01/2024 9:21 AM EDT Ventricular Rate: 92 BPM Atrial Rate: 92 BPM P-R Interval: 174 ms QRS Duration: 96 ms QT: 376 ms QTc: 464 ms P [place]: 54 degrees R [place]: -24 degrees T [place]: 11 degrees Diagnosis Line: NORMAL SINUS RHYTHM ^ NORMAL ECG ^ ^ Confirmed by MD JOE, OTIS ([id number]) on 11/01/2024 9:21:09 AM Priti Geiger [facility]IMMER ECG ORDERABLES Final Result MUSE * (ABNORMAL) Renal Function Panel w/EGFR (10/30/2024 5:41 AM EDT) Sodium 140 133 - 146 mmol/L 10/30/2024 6:18 AM EDT [facility] Potassium 3.8 3.5 - 5.3 mmol/L 10/30/2024 6:18 AM EDT [facility] Chloride 111(H) 98 - 110 mmol/L 10/30/2024 6:18 AM EDT [facility] CO2 17(L) 21 - 33 mmol/L 10/30/2024 6:18 AM EDT [facility] Anion Gap 12 3 - 16 mmol/L 10/30/2024 6:18 AM EDT [facility] BUN 62(H) 7 - 25 mg/dL 10/30/2024 6:18 AM EDT [facility] Creatinine 1.96(H) 0.60 - 1.30 mg/dL 10/30/2024 6:18 AM EDT [facility] Glucose 116(H) 70 - 100 mg/dL 10/30/2024 6:18 AM EDT [facility] Calcium 9.0 8.6 - 10.3 mg/dL 10/30/2024 6:18 AM EDT [facility] Phosphorus 4.6 2.1 - 4.7 mg/dL 10/30/2024 6:18 AM EDT [facility] Albumin 3.2(L) 3.5 - 5.7 g/dL 10/30/2024 6:18 AM EDT [facility] Osmolality, Calculated 309(H) 278 - 305 mOsm/kg 10/30/2024 6:18 AM EDT [facility] EGFR 43 10/30/2024 6:18 AM EDT [facility] Comment:As of 2021, the estimated [...] 5:41 AM EDT 10/30/2024 5:47 AM EDT [place] Horner [facility] BLOOD ORDERABLES Denisse l Result Performing Organization Address City/[facility]/ZIP Co de Phone Number [facility] [address] [facility]. [address] * Magnesium (10/30/2024 5:41 AM EDT) Magnesium 2.2 1.5 - 2.5 mg/dL 10/30/2024 6:18 AM EDT [facility] Plasma 10/30/2024 5:41 AM EDT 10/30/2024 5:47 AM EDT [facility] BLOOD ORDERABLES Denisse l Result [facility] [address] [facility]. [address] * (ABNORMAL) Hepatic Function Panel (10/30/2024 5:41 AM EDT) Total Bilirubin 3.6(H) 0.0 - 1.5 mg/dL 10/30/2024 6:18 AM EDT [facility] Bilirubin, Direct 1.95(H) 0.00 - 0.40 mg/dL 10/30/2024 6:18 AM EDT [facility] AST 33 13 - 39 U/L 10/30/2024 6:18 AM EDT [facility] ALT 71(H) 7 - 52 U/L 10/30/2024 6:18 AM EDT [facility] Alkaline Phosphatase 80 36 - 125 U/L 10/30/2024 6:18 AM EDT [facility] Total Protein 4.8(L) 6.4 - 8.9 g/dL 10/30/2024 6:18 AM EDT [facility] Albumin 3.2(L) 3.5 - 5.7 g/dL 10/30/2024 6:18 AM EDT [facility] Bilirubin, Indirect 1.65(H) 0.00 - 1.10 mg/dL 10/30/2024 6:18 AM EDT [facility] Plasma 10/30/2024 5:41 AM EDT 10/30/2024 5:47 AM EDT Beata Horner [facility] BLOOD ORDERABLES Denisse valle Result [facility] [address] [place] [address], [facility] * (ABNORMAL) CBC (10/30/2024 5:41 AM EDT) WBC 8.1 3.8 - 10.8 10E3/uL 10/30/2024 8:06 AM EDT [facility] RBC 3.29(L) 4.20 - 5.80 10E6/uL 10/30/2024 8:06 AM EDT [facility] Hemoglobin 10.1(L) 13.2 - 17.1 g/dL 10/30/2024 8:06 AM EDT [facility] Hematocrit 28.8(L) 38.5 - 50.0 % 10/30/2024 8:06 AM EDT [facility] MCV 87.6 80.0 - 100.0 fL 10/30/2024 8:06 AM EDT [facility] MCH 30.6 27.0 - 33.0 pg 10/30/2024 8:06 AM EDT [facility] MCHC 34.9 32.0 - 36.0 g/dL 10/30/2024 8:06 AM EDT [facility] RDW 18.1(H) 11.0 - 15.0 % 10/30/2024 8:06 AM EDT [facility] Platelets 44(L) 140 - 400 10E3/uL 10/30/2024 8:06 AM EDT [facility] Comment: CNV Specimen checked for clots. None detected. MPV 8.3 7.5 - 11.5 fL 10/30/2024 8:06 AM EDT [facility] Whole Blood 10/30/2024 5:41 AM EDT 10/30/2024 5:50 AM EDT Beata Horner [facility] BLOOD ORDERABLES Denisse l Result [facility] [address] [facility]. [address] * (ABNORMAL) POC Glucose Monitoring Device (10/29/2024 10:18 PM EDT) POC Glucose Monitoring Device 140(H) 70 - 100 mg/dL 10/29/2024 10:18 PM EDT [facility] Blood 10/29/2024 10:1 8 PM EDT 10/29/2024 10:18 PM EDT Semaj Mcnair III, MD POINT OF CARE TEST ORDERABLES Final Result Performing Organization Address [facility] Co de Phone Number [facility] [address] [facility]. [address] * (ABNORMAL) POC Glucose Monitoring Device (10/29/2024 6:42 PM EDT) POC Glucose Monitoring Device 152(H) 70 - 100 mg/dL 10/29/2024 6:43 PM EDT [facility] Blood 10/29/2024 6:42 PM EDT 10/29/2024 6:43 PM EDT Semaj Mcnair III, MD POINT OF CARE TEST ORDERABLES Final Result Performing Organization Address City/[facility]/ZIP Co de Phone Number [facility] [address] [facility]. [address] * (ABNORMAL) POC Glucose Monitoring Device (10/29/2024 11:35 AM EDT) Pathologist [facility] POC Glucose Monitoring Device 130(H) 70 - 100 mg/dL 10/29/2024 11:36 AM EDT [facility] Blood 10/29/2024 11:3 5 AM EDT 10/29/2024 11:36 AM EDT Semaj Mcnair III, MD POINT OF CARE TEST ORDERABLES Final Result Performing Organization Address City/[facility] Co de Phone Number [facility] [address] * ECG 12 lead (MUSE) (10/29/2024 9:34 AM EDT) 10/29/2024 9:34 AM EDT Narrative MUSE - 10/29/2024 10:34 PM EDT Ventricular Rate: 97 BPM Atrial Rate: 97 BPM P-R Interval: 186 ms QRS Duration: 104 ms QT: 382 ms QTc: 485 ms P [place]: 54 degrees R [place]: -21 degrees T [place]: 1 degrees Diagnosis Line: NORMAL SINUS RHYTHM ^ NORMAL ECG ^ Confirmed by JORGE MACIAS ([id number]) on 10/29/2024 10:34:50 PM Afshan Bear MD ECG ORDERABLES Final Result Performing Organization Address [facility] de Phone Number MUSE * Tacrolimus level (10/29/2024 8:08 AM EDT) [facility] Tacrolimus (LC-MS) 10.4 3.0 - 15.0 ng/mL 10/29/2024 2:07 PM EDT [facility] Comment:Performed via liquid chromatography tandem mass spectrometry. Detection limit: 1 ng/mL. Individual target concentrations may vary due to target organ and time after transplant. This test has been developed and its performance characteristics determined by [facility] which is certified under the [...] EDT 10/29/2024 8:21 AM EDT Priti Ge[facility] BLOOD ORDERABLES Final Re sult Performing Organization Address City/[facility]/ZIP Co de Phone Number [facility] [address] [place] [address], [facility] * Prepare RBC, leukoreduced, 1 Units (10/29/2024 6:16 AM EDT) Product Code T9432C26 [facility]LL Unit Number [id number] [facility] Dispense Status Presumed Transfused_PT HCLL Blood Expiration Date [id number] HCLL Coding System [id number] [facility]LL Blood Bank Product Shay Plata MD BLOOD BANK PRODUCT O RDERABLES Final Result Performing Organization Address City/[facility]/ZIP Co de Phone Number [facility] * Prepare RBC, leukoreduced, 1 Units (10/29/2024 6:15 AM EDT) Product Code Z5510S20 [facility]LL Unit Number [id number] [facility]LL Dispense Status Presumed Transfused_PT [facility]LL Blood Expiration Date [id number] HCLL Coding System [id number] [facility]LL Blood Bank Product Carlos Marks MD BLOOD BANK PRODUCT ORDERABL ES Final Result Performing Organization Address City/[facility]/ZIP Co de Phone Number [facility] * Prepare RBC, leukoreduced, 1 Units (10/29/2024 6:15 AM EDT) Product Code U9970X62 [facility] Unit Number [id number] [facility] Dispense Status Presumed Transfused_PT [facility]LL Blood Expiration Date [id number] HCLL Coding System [id number] [facility] Blood Bank Product John Moreno MD BLOOD BANK PRODUCT ORDERABLE S Final Result [facility] * (ABNORMAL) Renal Function Panel w/EGFR (10/29/2024 5:07 AM EDT) Sodium 144 133 - 146 mmol/L 10/29/2024 5:49 AM EDT [facility] Potassium 3.8 3.5 - 5.3 mmol/L 10/29/2024 5:49 AM EDT [facility] Chloride 113(H) 98 - 110 mmol/L 10/29/2024 5:49 AM EDT [facility] CO2 17(L) 21 - 33 mmol/L 10/29/2024 5:49 AM EDT [facility] Anion Gap 14 3 - 16 mmol/L 10/29/2024 5:49 AM EDT [facility] BUN 57(H) 7 - 25 mg/dL 10/29/2024 5:49 AM EDT [facility] Creatinine 1.93(H) 0.60 - 1.30 mg/dL 10/29/2024 5:49 AM EDT [facility] Glucose 110(H) 70 - 100 mg/dL 10/29/2024 5:49 AM EDT [facility] Calcium 9.3 8.6 - 10.3 mg/dL 10/29/2024 5:49 AM EDT [facility] Phosphorus 4.8(H) 2.1 - 4.7 mg/dL 10/29/2024 5:49 AM EDT [facility] Albumin 3.5 3.5 - 5.7 g/dL 10/29/2024 5:49 AM EDT [facility] Osmolality, Calculated 314(H) 278 - 305 mOsm/kg 10/29/2024 5:49 AM EDT [facility] EGFR 44 10/29/2024 5:49 AM EDT [facility] Comment:As of 2021, the estimated [...] 5:07 AM EDT 10/29/2024 5:13 AM EDT [place] Horner [facility] BLOOD ORDERABLES Denisse l Result [facility] [address] [facility]. [address] * Magnesium (10/29/2024 5:07 AM EDT) Magnesium 2.1 1.5 - 2.5 mg/dL 10/29/2024 5:49 AM EDT [facility] Plasma 10/29/2024 5:07 AM EDT 10/29/2024 5:13 AM EDT Franklyer Evens [facility] BLOOD ORDERABLES Denisse l Result Performing Organization Address City/[facility]/ZIP Co de Phone Number [facility] [address] [facility]. [address] * (ABNORMAL) Hepatic Function Panel (10/29/2024 5:07 AM EDT) Total Bilirubin 4.2(H) 0.0 - 1.5 mg/dL 10/29/2024 5:49 AM EDT [facility] Bilirubin, Direct 2.85(H) 0.00 - 0.40 mg/dL 10/29/2024 5:49 AM EDT [facility] AST 31 13 - 39 U/L 10/29/2024 5:49 AM EDT [facility] ALT 88(H) 7 - 52 U/L 10/29/2024 5:49 AM EDT [facility] Alkaline Phosphatase 51 36 - 125 U/L 10/29/2024 5:49 AM EDT [facility] Total Protein 5.2(L) 6.4 - 8.9 g/dL 10/29/2024 5:49 AM EDT [facility] Albumin 3.5 3.5 - 5.7 g/dL 10/29/2024 5:49 AM EDT [facility] Bilirubin, Indirect 1.35(H) 0.00 - 1.10 mg/dL 10/29/2024 5:49 AM EDT [facility] Plasma 10/29/2024 5:07 AM EDT 10/29/2024 5:13 AM EDT us Beata Horner [facility] BLOOD ORDERABLES Denisse valle Result [facility] [address] [place] [address], [facility] * (ABNORMAL) CBC (10/29/2024 5:07 AM EDT) WBC 7.8 3.8 - 10.8 10E3/uL 10/29/2024 5:38 AM EDT [facility] RBC 3.05(L) 4.20 - 5.80 10E6/uL 10/29/2024 5:38 AM EDT [facility] Hemoglobin 9.0(L) 13.2 - 17.1 g/dL 10/29/2024 5:38 AM EDT [facility] Hematocrit 26.7(L) 38.5 - 50.0 % 10/29/2024 5:38 AM EDT [facility] MCV 87.4 80.0 - 100.0 fL 10/29/2024 5:38 AM EDT [facility] MCH 29.7 27.0 - 33.0 pg 10/29/2024 5:38 AM EDT [facility] MCHC 33.9 32.0 - 36.0 g/dL 10/29/2024 5:38 AM EDT [facility] RDW 18.3(H) 11.0 - 15.0 % 10/29/2024 5:38 AM EDT [facility] Platelets 41(L) 140 - 400 10E3/uL 10/29/2024 5:38 AM EDT [facility] Comment: CNV Specimen checked for clots. None detected. MPV 7.5 7.5 - 11.5 fL 10/29/2024 5:38 AM EDT [facility] Whole Blood 10/29/2024 5:07 AM EDT 10/29/2024 5:13 AM EDT us Beata Dada Horner [facility] BLOOD ORDERABLES Denisse l Result [facility] [address] [place] [id number], [facility] * (ABNORMAL) TEG-Bypass/ECMO/Liver HN (Factor function, Platelet/Fibrin Clot Strength w/Clot Breakdown, Heparinase In All Channels) (10/29/2024 5:07 AM EDT) Citrated Kaolin Reaction Time (TEGECMOLIVER) 8.9 4.6 - 9.1 minutes 10/29/2024 7:04 AM EDT [facility] Citrated Kaolin W/Heparinase Reaction Time (TEGECMOLIVER) 7.4 4.3 - 8.3 minutes 10/29/2024 7:04 AM EDT [facility] Citrated Kaolin Maximum Amplitude (TEGECMOLIVER) 52.9 52.0 - 69.0 mm 10/29/2024 7:04 AM EDT [facility] Citrated Functional Fibrinogen W/Heparinase Maximum Amplitude(TEGEC MOLIVER) 20.7 15.0 - 34.0 mm 10/29/2024 7:04 AM EDT [facility] Citrated Rapid Teg W/Heparinase Maximum Amplitude (TEGECMOLIVER) 49.7(L) 53.0 - 69.0 mm 10/29/2024 7:04 AM EDT [facility] Citrated Kaolin w/Heparinase Percent Lysis (TEGECMOLIVER) 0.0 0.0 - 3.2 % 10/29/2024 7:04 AM EDT [facility] Whole Blood (Citrate) 10/29/2024 5:07 AM EDT 10/29/2024 5:10 AM EDT Kemar Sahni MD LAB BLOOD ORDERABLES Final Result [facility] [address] [facility]. [address] * (ABNORMAL) TEG-Bypass/ECMO/Liver HN (Factor function, Platelet/Fibrin Clot Strength w/Clot Breakdown, Heparinase In All Channels) (10/28/2024 11:55 PM EDT) [facility] Citrated Kaolin Reaction Time (TEGECMOLIVER) 8.6 4.6 - 9.1 minutes 10/29/2024 2:01 AM EDT [facility] Citrated Kaolin W/Heparinase Reaction Time (TEGECMOLIVER) 8.7(H) 4.3 - 8.3 minutes 10/29/2024 2:01 AM EDT [facility] Citrated Kaolin Maximum Amplitude (TEGECMOLIVER) 47.9(L) 52.0 - 69.0 mm 10/29/2024 2:01 AM EDT [facility] Citrated Functional Fibrinogen W/Heparinase Maximum Amplitude(TEGEC MOLIVER) 22.0 15.0 - 34.0 mm 10/29/2024 2:01 AM EDT [facility] Citrated Rapid Teg W/Heparinase Maximum Amplitude (TEGECMOLIVER) 45.9(L) 53.0 - 69.0 mm 10/29/2024 2:01 AM EDT [facility] Citrated Kaolin w/Heparinase Percent Lysis (TEGECMOLIVER) 0.0 0.0 - 3.2 % 10/29/2024 2:01 AM EDT [facility] Whole Blood (Citrate) 10/28/2024 11:55 PM EDT 10/28/2024 11:58 PM EDT Kemar Sahni MD LAB BLOOD ORDERABLES Final Result [facility] [address] * (ABNORMAL) CBC, STAT (10/28/2024 8:04 PM EDT) WBC 3.9 3.8 - 10.8 10E3/uL 10/28/2024 8:36 PM EDT [facility] RBC 2.66(L) 4.20 - 5.80 10E6/uL 10/28/2024 8:36 PM EDT [facility] Hemoglobin 8.0(L) 13.2 - 17.1 g/dL 10/28/2024 8:36 PM EDT [facility] Hematocrit 23.0(L) 38.5 - 50.0 % 10/28/2024 8:36 PM EDT [facility] MCV 86.4 80.0 - 100.0 fL 10/28/2024 8:36 PM EDT [facility] MCH 29.9 27.0 - 33.0 pg 10/28/2024 8:36 PM EDT [facility] MCHC 34.6 32.0 - 36.0 g/dL 10/28/2024 8:36 PM EDT [facility] RDW 18.6(H) 11.0 - 15.0 % 10/28/2024 8:36 PM EDT [facility] Platelets 29(L) 140 - 400 10E3/uL 10/28/2024 8:36 PM EDT [facility] Comment: CNV Specimen checked for clots. None detected. MPV 7.8 7.5 - 11.5 fL 10/28/2024 8:36 PM EDT [facility] Whole Blood 10/28/2024 8:04 PM EDT 10/28/2024 8:14 PM EDT us Carlos Marks MD LAB BLOOD ORDERABLES Final Result [facility] [address] [place] [address], [facility] * (ABNORMAL) POC Glucose Monitoring Device (10/28/2024 8:03 PM EDT) POC Glucose Monitoring Device 122(H) 70 - 100 mg/dL 10/28/2024 8:04 PM EDT [facility] Blood 10/28/2024 8:03 PM EDT 10/28/2024 8:04 PM EDT Semaj Mcnair III, MD POINT OF CARE TEST ORDERABLES Final Result [facility] [address] * (ABNORMAL) TEG-Bypass/ECMO/Liver HN (Factor function, Platelet/Fibrin Clot Strength w/Clot Breakdown, Heparinase In All Channels) (10/28/2024 6:39 PM EDT) [facility] Citrated Kaolin Reaction Time (TEGECMOLIVER) 9.0 4.6 - 9.1 minutes 10/28/2024 7:50 PM EDT [facility] Citrated Kaolin W/Heparinase Reaction Time (TEGECMOLIVER) 8.3 4.3 - 8.3 minutes 10/28/2024 7:50 PM EDT [facility] Citrated Kaolin Maximum Amplitude (TEGECMOLIVER) 47.6(L) 52.0 - 69.0 mm 10/28/2024 7:50 PM EDT [facility] Citrated Functional Fibrinogen W/Heparinase Maximum Amplitude(TEGEC MOLIVER) 20.4 15.0 - 34.0 mm 10/28/2024 7:50 PM EDT [facility] Citrated Rapid Teg W/Heparinase Maximum Amplitude (TEGECMOLIVER) 44.0(L) 53.0 - 69.0 mm 10/28/2024 7:50 PM EDT [facility] Citrated Kaolin w/Heparinase Percent Lysis (TEGECMOLIVER) 0.0 0.0 - 3.2 % 10/28/2024 7:50 PM EDT [facility] Whole Blood (Citrate) 10/28/2024 6:39 PM EDT 10/28/2024 6:42 PM EDT us Kemar Sahni MD LAB BLOOD ORDERABLES Final Result [facility] [address] [facility]. [address] * (ABNORMAL) POC Glucose Monitoring Device (10/28/2024 5:31 PM EDT) POC Glucose Monitoring Device 130(H) 70 - 100 mg/dL 10/28/2024 5:31 PM EDT [facility] Blood 10/28/2024 5:31 PM EDT 10/28/2024 5:31 PM EDT us Semaj Mcnair III, MD POINT OF CARE TEST ORDERABLES Final Result Performing Organization Address City/[facility]/ZIP Co de Phone Number [facility] [address] * Transfuse RBC Transfusion Rate: Per dept routine (10/28/2024 5:23 PM EDT) us Shay Plata MD NURSING TREATMENT OR DERABLES - BLOOD ADMIN Final Result Performing Organization Address [facility] Co de Phone Number EXTERNAL * Transfuse RBC Transfusion Rate: Per dept routine, 1 Units (10/28/2024 5:23 PM EDT) us Shay Plata MD NURSING TREATMENT OR DERABLES - BLOOD ADMIN Final Result Performing Organization Address [facility] Co de Phone [...] EXAM: US ABDOMEN LIMITED EXAM: US DUPLEX [id number] COMPLETE INDICATION: Post-op liver transplant DATE: 10/28/2024 [...] retrohepatic inferior vena cava is patent. The [place] right kidney is partially visualized. A prominent [...] EXAM: US ABDOMEN LIMITED EXAM: US DUPLEX [id number] COMPLETE INDICATION: Post-op liver transplant DATE: 10/28/2024 [...] retrohepatic inferior vena cava is patent. The [place] right kidney is partially visualized. A prominent [...] 4:42 PM EDT us Shay Plata MD [facility] US ORDERABLES Fi nal Result * US Duplex [id number] Comp (10/28/2024 4:23 PM EDT) Anatomical Region [...] EXAM: US ABDOMEN LIMITED EXAM: US DUPLEX [id number] COMPLETE INDICATION: Post-op liver transplant DATE: 10/28/2024 [...] retrohepatic inferior vena cava is patent. The [place] right kidney is partially visualized. A prominent [...] EXAM: US ABDOMEN LIMITED EXAM: US DUPLEX [id number] COMPLETE INDICATION: Post-op liver transplant DATE: 10/28/2024 [...] retrohepatic inferior vena cava is patent. The [place] right kidney is partially visualized. A prominent [...] 10/28/2024 4:42 PM EDT Shay Plata MD [facility] ORDERABLES Fi nal Result * (ABNORMAL) CBC, STAT (10/28/2024 2:49 PM EDT) [facility] Signature WBC 4.0 3.8 - 10.8 10E3/uL 10/28/2024 3:07 PM EDT [facility] RBC 2.44(L) 4.20 - 5.80 10E6/uL 10/28/2024 3:07 PM EDT [facility] Hemoglobin 7.5(L) 13.2 - 17.1 g/dL 10/28/2024 3:07 PM EDT [facility] Hematocrit 21.4(L) 38.5 - 50.0 % 10/28/2024 3:07 PM EDT [facility] MCV 87.6 80.0 - 100.0 fL 10/28/2024 3:07 PM EDT [facility] MCH 30.6 27.0 - 33.0 pg 10/28/2024 3:07 PM EDT [facility] MCHC 34.9 32.0 - 36.0 g/dL 10/28/2024 3:07 PM EDT [facility] RDW 18.4(H) 11.0 - 15.0 % 10/28/2024 3:07 PM EDT [facility] Platelets 30(L) 140 - 400 10E3/uL 10/28/2024 3:07 PM EDT [facility] Comment: CNV Specimen checked for clots. None detected. MPV 7.7 7.5 - 11.5 fL 10/28/2024 3:07 PM EDT [facility] Whole Blood 10/28/2024 2:49 PM EDT 10/28/2024 2:53 PM EDT us Carlos Marks MD LAB BLOOD ORDERABLES Final Result Performing Organization Address City/State/[facility] Co de Phone Number [facility] [address] * ECG 12 lead (MUSE) (10/28/2024 1:22 PM EDT) 10/28/2024 1:22 PM EDT Narrative MUSE - 10/29/2024 10:34 PM EDT Ventricular Rate: 104 BPM Atrial Rate: 104 BPM P-R Interval: 172 ms QRS Duration: 90 ms QT: 354 ms QTc: 465 ms P [place]: 58 degrees R [place]: -19 degrees T [place]: 38 degrees Diagnosis Line: SINUS TACHYCARDIA ^ OTHERWISE NORMAL ECG ^ ^ Confirmed by JORGE MACIAS ([id number]) on 10/29/2024 10:34:22 PM us Hillary Fernandes PharmD ECG ORDERABLES Final Res ult MUSE * (ABNORMAL) POC Glucose Monitoring Device (10/28/2024 12:54 PM EDT) POC Glucose Monitoring Device 119(H) 70 - 100 mg/dL 10/28/2024 12:55 PM EDT [facility] Blood 10/28/2024 12:5 4 PM EDT 10/28/2024 12:55 PM EDT us Semaj Mcnair III, MD POINT OF CARE TEST ORDERABLES Final Result Performing Organization Address City/[facility]/ZIP Co de Phone Number [facility] [address] * Transfuse RBC Transfusion Rate: Per dept routine (10/28/2024 12:31 PM EDT) us Carlos Marks MD NURSING TREATMENT ORDERABLE S - BLOOD ADMIN Final Result Performing Organization Address City/[facility]/ZIP Co de Phone Number EXTERNAL * Transfuse RBC Transfusion Rate: Per dept routine, 1 Units (10/28/2024 12:31 PM EDT) us Carlos Marks MD NURSING TREATMENT ORDERABLE S - BLOOD ADMIN Final Result Performing Organization Address City/[facility] Co de Phone Number EXTERNAL * Protime-INR, STAT (10/28/2024 11:09 AM EDT) Protime 14.3 12.1 - 15.1 seconds 10/28/2024 11:29 AM EDT [facility] INR 1.1 0.9 - 1.1 10/28/2024 11:29 AM EDT [facility] Comment: RECOMMENDED THERAPEUTIC RANGES USING INR : Stable oral anticoagulant therapy: 2.0 - 3.0 Mechanical prosthetic heart valve: 2.5 - 3.5 Recurrent acute myocardial infarction: 2.5 - 3.5 Plasma 10/28/2024 11:0 9 AM EDT 10/28/2024 11:16 AM EDT us Carlos Marks MD LAB BLOOD ORDERABLES Final Result Performing Organization Address [facility] Co de Phone Number [facility] [address] * (ABNORMAL) Lactic Acid, STAT (10/28/2024 11:09 AM EDT) Lactate 0.3(L) 0.5 - 2.2 mmol/L 10/28/2024 11:37 AM EDT [facility] Plasma 10/28/2024 11:0 9 AM EDT 10/28/2024 11:15 AM EDT us Carlos Marks MD LAB BLOOD ORDERABLES Final Result Performing Organization Address [facility] Co de Phone Number [facility] [address] [facility]. [address] * Magnesium, STAT (10/28/2024 11:09 AM EDT) Magnesium 2.1 1.5 - 2.5 mg/dL 10/28/2024 11:47 AM EDT [facility] Plasma 10/28/2024 11:0 9 AM EDT 10/28/2024 11:16 AM EDT us Carlos Marks MD LAB BLOOD ORDERABLES Final Result Performing Organization Address [facility] Co de Phone Number [facility] [address] [facility]. [address] * (ABNORMAL) Renal Function Panel w/EGFR, STAT (10/28/2024 11:09 AM EDT) Sodium 144 133 - 146 mmol/L 10/28/2024 11:47 AM EDT [facility] Potassium 3.4(L) 3.5 - 5.3 mmol/L 10/28/2024 11:47 AM EDT [facility] Chloride 112(H) 98 - 110 mmol/L 10/28/2024 11:47 AM EDT [facility] CO2 22 21 - 33 mmol/L 10/28/2024 11:47 AM EDT [facility] Anion Gap 10 3 - 16 mmol/L 10/28/2024 11:47 AM EDT [facility] BUN 57(H) 7 - 25 mg/dL 10/28/2024 11:47 AM EDT [facility] Creatinine 2.01(H) 0.60 - 1.30 mg/dL 10/28/2024 11:47 AM EDT [facility] Glucose 108(H) 70 - 100 mg/dL 10/28/2024 11:47 AM EDT [facility] Calcium 8.8 8.6 - 10.3 mg/dL 10/28/2024 11:47 AM EDT [facility] Phosphorus 4.0 2.1 - 4.7 mg/dL 10/28/2024 11:47 AM EDT [facility] Albumin 3.3(L) 3.5 - 5.7 g/dL 10/28/2024 11:47 AM EDT [facility] Osmolality, Calculated 314(H) 278 - 305 mOsm/kg 10/28/2024 11:47 AM EDT [facility] EGFR 42 10/28/2024 11:47 AM [facility] Comment:As of 2021, the estimated [...] Marks MD LAB BLOOD ORDERABLES Final Result [facility] [address] * (ABNORMAL) TEG-Bypass/ECMO/Liver HN (Factor function, Platelet/Fibrin Clot Strength w/Clot Breakdown, Heparinase In All Channels) (10/28/2024 11:09 AM EDT) [facility] Citrated Kaolin Reaction Time (TEGECMOLIVER) 9.2(H) 4.6 - 9.1 minutes 10/28/2024 12:30 PM EDT [facility] Citrated Kaolin W/Heparinase Reaction Time (TEGECMOLIVER) 9.6(H) 4.3 - 8.3 minutes 10/28/2024 12:30 PM EDT [facility] Citrated Kaolin Maximum Amplitude (TEGECMOLIVER) 51.2(L) 52.0 - 69.0 mm 10/28/2024 12:30 PM EDT [facility] Citrated Functional Fibrinogen W/Heparinase Maximum Amplitude(TEGEC MOLIVER) 21.6 15.0 - 34.0 mm 10/28/2024 12:30 PM EDT [facility] Citrated Rapid Teg W/Heparinase Maximum Amplitude (TEGECMOLIVER) 49.3(L) 53.0 - 69.0 mm 10/28/2024 12:30 PM EDT [facility] Citrated Kaolin w/Heparinase Percent Lysis (TEGECMOLIVER) 0.0 0.0 - 3.2 % 10/28/2024 12:30 PM EDT [facility] Whole Blood (Citrate) 10/28/2024 11:09 AM EDT 10/28/2024 11:14 AM EDT Kemar Sahni MD LAB BLOOD ORDERABLES Final Result [facility] [address] * (ABNORMAL) CBC (10/28/2024 10:21 AM EDT) WBC 4.1 3.8 - 10.8 10E3/uL 10/28/2024 10:41 AM EDT [facility] RBC 2.30(L) 4.20 - 5.80 10E6/uL 10/28/2024 10:41 AM EDT [facility] LAB Hemoglobin 7.1(L) 13.2 - 17.1 g/dL 10/28/2024 10:41 AM EDT [facility] Hematocrit 20.4(L) 38.5 - 50.0 % 10/28/2024 10:41 AM EDT [facility] MCV 88.5 80.0 - 100.0 fL 10/28/2024 10:41 AM EDT [facility] MCH 30.7 27.0 - 33.0 pg 10/28/2024 10:41 AM EDT [facility] MCHC 34.7 32.0 - 36.0 g/dL 10/28/2024 10:41 AM EDT [facility] RDW 18.7(H) 11.0 - 15.0 % 10/28/2024 10:41 AM EDT [facility] Platelets 37(L) 140 - 400 10E3/uL 10/28/2024 10:41 AM EDT [facility] Comment: CNV Specimen checked for clots. None detected. MPV 7.6 7.5 - 11.5 fL 10/28/2024 10:41 AM EDT [facility] Whole Blood 10/28/2024 10:2 1 AM EDT 10/28/2024 10:29 AM EDT us Carlos Marks MD LAB BLOOD ORDERABLES Final Result [facility] [address] [place] [address], [facility] * POC Glucose Monitoring Device (10/28/2024 9:07 AM EDT) POC Glucose Monitoring Device 97 70 - 100 mg/dL 10/28/2024 9:08 AM EDT [facility] Blood 10/28/2024 9:07 AM EDT 10/28/2024 9:08 AM EDT Semaj Mcnair III, MD POINT OF CARE TEST ORDERABLES Final Result Performing Organization Address [facility] Co de Phone Number [facility] [address] [facility]. [address] * (ABNORMAL) Tacrolimus level (10/28/2024 8:20 AM EDT) Pathologist [facility] Tacrolimus (LC-MS) <1.0(L) 3.0 - 15.0 ng/mL 10/28/2024 2:02 PM EDT [facility] Comment:Performed via liquid chromatography tandem mass spectrometry. Detection limit: 1 ng/mL. Individual target concentrations may vary due to target organ and time after transplant. This test has been developed and its performance characteristics determined by [facility] which is certified under the [...] EDT 10/28/2024 8:29 AM EDT Priti Geiger [facility] BLOOD ORDERABLES Final Re sult Performing Organization Address [facility] Co de Phone Number [facility] [address] [facility]. [address] * (ABNORMAL) POC Glucose Monitoring Device (10/28/2024 8:10 AM EDT) POC Glucose Monitoring Device 102(H) 70 - 100 mg/dL 10/28/2024 8:11 AM EDT [facility] Blood 10/28/2024 8:10 AM EDT 10/28/2024 8:11 AM EDT Semaj Mcnair III, MD POINT OF CARE TEST ORDERABLES Final Result Performing Organization Address [facility] Co de Phone Number [facility] [address] * POC Glucose Monitoring Device (10/28/2024 6:17 AM EDT) POC Glucose Monitoring Device 100 70 - 100 mg/dL 10/28/2024 6:18 AM EDT [facility] Blood 10/28/2024 6:17 AM EDT 10/28/2024 6:18 AM EDT Semaj Mcnair III, MD POINT OF CARE TEST ORDERABLES Final Result Performing Organization Address [facility] de Phone Number [facility] [address] [facility]. [address] * Prepare Platelets, leukoreduced (10/28/2024 6:15 AM EDT) Product Code V0413T27 HCLL Unit Number [id number] HCLL Dispense Status Presumed Transfused_PT HCLL Blood Expiration Date HCLL Coding System [id number] HCLL Product Code T8167J11 HCLL Unit Number [id number] HCLL Dispense Status Presumed Transfused_PT HCLL Blood Expiration Date HCLL Coding System [id number] HCLL us Attending Provider Unknown BLOOD BANK PRODUCT OR DERABLES Final Result Performing Organization Address [facility] Co de Phone Number HCLL * Prepare Fresh Frozen Plasma (10/28/2024 6:15 AM EDT) Product Code D3353V22 HCLL Unit Number [id number] HCLL Dispense Status Released from Crossmatch_RE HCLL Blood Expiration Date HCLL Coding System [id number] HCLL Product Code H5828D56 HCLL Unit Number [id number] HCLL Dispense Status Presumed Transfused_PT HCLL Blood Expiration Date HCLL Coding System NXEO970 HCLL Product Code Z9061J09 HCLL Unit Number [id number] HCLL Dispense Status Released from Crossmatch_RE HCLL Blood Expiration Date HCLL Coding System WZRC270 HCLL Product Code P4235H28 HCLL Unit Number [id number] HCLL Dispense Status Presumed Transfused_PT HCLL Blood Expiration Date HCLL Coding System MEGB193 HCLL Product Code F2026E66 HCLL Unit Number [id number] HCLL Dispense Status Released from Crossmatch_RE HCLL Blood Expiration Date [id number] HCLL Coding System ZDWP853 HCLL us Attending Provider Unknown BLOOD BANK PRODUCT OR DERABLES Final Result HCLL * Prepare RBC, leukoreduced (10/28/2024 6:15 AM EDT) Product Code R8221I21 HCLL Unit Number [id number] HCLL Dispense Status Released from Crossmatch_RE HCLL Blood Expiration Date HCLL Coding System VRTQ959 HCLL Product Code C8608U44 HCLL Unit Number [id number] HCLL Dispense Status Presumed Transfused_PT HCLL Blood Expiration Date [id number] HCLL Coding System HWKY467 HCLL Product Code F1144A97 HCLL Unit Number [id number] HCLL Dispense Status Released from Crossmatch_RE HCLL Blood Expiration Date HCLL Coding System MDSF834 HCLL Product Code X4567F34 HCLL Unit Number [id number] HCLL Dispense Status Presumed Transfused_PT HCLL Blood Expiration Date HCLL Coding System WQIQ605 HCLL Product Code G2097O91 HCLL Unit Number [id number] HCLL Dispense Status Released from Crossmatch_RE HCLL Blood Expiration Date HCLL Coding System FJCQ272 HCLL Attending Provider Unknown BLOOD BANK PRODUCT OR DERABLES Final Result Performing Organization Address [facility] Co de Phone Number HCLL * Prepare Platelets, leukoreduced, 1 Units (10/28/2024 6:15 AM EDT) Product Code F3168V59 HCLL Unit Number [id number] HCLL Dispense Status Presumed Transfused_PT HCLL Blood Expiration Date [id number] HCLL Coding System [id number] HCLL Blood Bank Product John Pina MD BLOOD BANK PRODUCT ORDERABLES F inal Result Performing Organization Address [facility] de Phone Number HCLL * Prepare Cryoprecipitate, 1 Units (10/28/2024 6:15 AM EDT) Product Code D8726W13 HCLL Unit Number [id number] HCLL Dispense Status Presumed Transfused_PT HCLL Blood Expiration Date HCLL Coding System OSIU874 HCLL Product Code S2943V13 HCLL Unit Number [id number] HCLL Dispense Status Presumed Transfused_PT HCLL Blood Expiration Date 111145227557 HCLL Coding System CLWF963 HCLL Blood Bank Product John Pina MD BLOOD BANK PRODUCT ORDERABLES F inal Result Performing Organization Address [facility] Co de Phone Number HCLL * Prepare Fresh Frozen Plasma, 1 Units (10/28/2024 6:15 AM EDT) Product Code H9013D99 HCLL Unit Number [id number] HCLL Dispense Status Presumed Transfused_PT HCLL Blood Expiration Date 125015597945 HCLL Coding System DQCT600 HCLL Blood Bank Product John Pina MD BLOOD BANK PRODUCT ORDERABLES F inal Result Performing Organization Address [facility] Co de Phone Number HCLL * Prepare Cryoprecipitate, 1 Units (10/28/2024 6:15 AM EDT) Product Code S5156V75 HCLL Unit Number [id number] HCLL Dispense Status Presumed Transfused_PT HCLL Blood Expiration Date HCLL Coding System HTAD656 HCLL Product Code U4590V46 HCLL Unit Number [id number] HCLL Dispense Status Presumed Transfused_PT HCLL Blood Expiration Date HCLL Coding System YFSI287 HCLL Product Code V7498U71 HCLL Unit Number [id number] HCLL Dispense Status Presumed Transfused_PT HCLL Blood Expiration Date HCLL Coding System CKQZ623 HCLL Product Code D8006H05 HCLL Unit Number [id number] HCLL Dispense Status Presumed Transfused_PT HCLL Blood Expiration Date [id number] HCLL Coding System QIDE951 HCLL Blood Bank Product John Pina MD BLOOD BANK PRODUCT ORDERABLES F inal Result Performing Organization Address [facility] de Phone Number HCLL * (ABNORMAL) POC Glucose Monitoring Device (10/28/2024 4:55 AM EDT) POC Glucose Monitoring Device 104(H) 70 - 100 mg/dL 10/28/2024 4:57 AM EDT [facility] Blood 10/28/2024 4:55 AM EDT 10/28/2024 4:57 AM EDT Semaj Mcnair III, MD POINT OF CARE TEST ORDERABLES Final Result Performing Organization Address [facility] Co de Phone Number [facility] [address] [place] [address], [facility] * TEG-Bypass/ECMO/Liver HN (Factor function, Platelet/Fibrin Clot Strength w/Clot Breakdown, Heparinase In All Channels) (10/28/2024 4:13 AM EDT) Citrated Kaolin Reaction Time (TEGECMOLIVER) 7.2 4.6 - 9.1 minutes 10/28/2024 5:38 AM EDT [facility] Citrated Kaolin W/Heparinase Reaction Time (TEGECMOLIVER) 7.8 4.3 - 8.3 minutes 10/28/2024 5:38 AM EDT [facility] Citrated Kaolin Maximum Amplitude (TEGECMOLIVER) 53.0 52.0 - 69.0 mm 10/28/2024 5:38 AM EDT [facility] Citrated Functional Fibrinogen W/Heparinase Maximum Amplitude(TEGEC MOLIVER) 21.4 15.0 - 34.0 mm 10/28/2024 5:38 AM EDT [facility] Citrated Rapid Teg W/Heparinase Maximum Amplitude (TEGECMOLIVER) 54.7 53.0 - 69.0 mm 10/28/2024 5:38 AM EDT [facility] Citrated Kaolin w/Heparinase Percent Lysis (TEGECMOLIVER) 0.0 0.0 - 3.2 % 10/28/2024 5:38 AM EDT [facility] Whole Blood (Citrate) 10/28/2024 4:13 AM EDT 10/28/2024 4:28 AM EDT us Kemar Sahni MD LAB BLOOD ORDERABLES Final Result Performing Organization Address City/State/[facility] Co de Phone Number [facility] [address] [id number] * Protime-INR (10/28/2024 4:13 AM EDT) Protime 14.6 12.1 - 15.1 seconds 10/28/2024 4:53 AM EDT [facility] INR 1.1 0.9 - 1.1 10/28/2024 4:53 AM EDT [facility] Comment: RECOMMENDED THERAPEUTIC RANGES USING INR : Stable oral anticoagulant therapy: 2.0 - 3.0 Mechanical prosthetic heart valve: 2.5 - 3.5 Recurrent acute myocardial infarction: 2.5 - 3.5 Plasma 10/28/2024 4:13 AM EDT 10/28/2024 4:41 AM EDT Kemar Sahni MD LAB BLOOD ORDERABLES Final Result [facility] [address] * Magnesium (10/28/2024 4:13 AM EDT) Magnesium 2.2 1.5 - 2.5 mg/dL 10/28/2024 5:15 AM EDT [facility] Plasma 10/28/2024 4:13 AM EDT 10/28/2024 4:41 AM EDT Kemar Sahni MD LAB BLOOD ORDERABLES Final Result Performing Organization Address [facility] Co de Phone Number [facility] [address] * (ABNORMAL) Hepatic Function Panel (10/28/2024 4:13 AM EDT) Total Bilirubin 2.3(H) 0.0 - 1.5 mg/dL 10/28/2024 5:15 AM EDT [facility] Bilirubin, Direct 1.67(H) 0.00 - 0.40 mg/dL 10/28/2024 5:15 AM EDT [facility] AST 44(H) 13 - 39 U/L 10/28/2024 5:15 AM EDT [facility] ALT 101(H) 7 - 52 U/L 10/28/2024 5:15 AM EDT [facility] Alkaline Phosphatase 26(L) 36 - 125 U/L 10/28/2024 5:15 AM EDT [facility] Total Protein 4.5(L) 6.4 - 8.9 g/dL 10/28/2024 5:15 AM EDT [facility] Albumin 3.1(L) 3.5 - 5.7 g/dL 10/28/2024 5:15 AM EDT [facility] Bilirubin, Indirect 0.63 0.00 - 1.10 mg/dL 10/28/2024 5:15 AM EDT [facility] Plasma 10/28/2024 4:13 AM EDT 10/28/2024 4:41 AM EDT Kemar Sahni MD LAB BLOOD ORDERABLES Final Result [facility] [address] [place], [place] [address] * (ABNORMAL) Renal Function Panel w/EGFR (10/28/2024 4:13 AM EDT) Sodium 142 133 - 146 mmol/L 10/28/2024 5:15 AM EDT [facility] Potassium 3.5 3.5 - 5.3 mmol/L 10/28/2024 5:15 AM EDT [facility] Chloride 111(H) 98 - 110 mmol/L 10/28/2024 5:15 AM EDT [facility] CO2 22 21 - 33 mmol/L 10/28/2024 5:15 AM EDT [facility] Anion Gap 9 3 - 16 mmol/L 10/28/2024 5:15 AM EDT [facility] BUN 58(H) 7 - 25 mg/dL 10/28/2024 5:15 AM EDT [facility] Creatinine 2.24(H) 0.60 - 1.30 mg/dL 10/28/2024 5:15 AM EDT [facility] Glucose 103(H) 70 - 100 mg/dL 10/28/2024 5:15 AM EDT [facility] Calcium 9.1 8.6 - 10.3 mg/dL 10/28/2024 5:15 AM EDT [facility] Phosphorus 4.8(H) 2.1 - 4.7 mg/dL 10/28/2024 5:15 AM EDT [facility] Albumin 3.1(L) 3.5 - 5.7 g/dL 10/28/2024 5:15 AM EDT [facility] Osmolality, Calculated 310(H) 278 - 305 mOsm/kg 10/28/2024 5:15 AM EDT [facility] EGFR 37 10/28/2024 5:15 AM [...] Sahni MD LAB BLOOD ORDERABLES Final Result [facility] [address] [place] [address], [facility] * (ABNORMAL) CBC (10/28/2024 4:13 AM EDT) WBC 4.5 3.8 - 10.8 10E3/uL 10/28/2024 5:09 AM EDT [facility] RBC 2.39(L) 4.20 - 5.80 10E6/uL 10/28/2024 5:09 AM EDT [facility] Hemoglobin 7.3(L) 13.2 - 17.1 g/dL 10/28/2024 5:09 AM EDT [facility] Hematocrit 21.0(L) 38.5 - 50.0 % 10/28/2024 5:09 AM EDT [facility] MCV 87.8 80.0 - 100.0 fL 10/28/2024 5:09 AM EDT [facility] MCH 30.5 27.0 - 33.0 pg 10/28/2024 5:09 AM EDT [facility] MCHC 34.7 32.0 - 36.0 g/dL 10/28/2024 5:09 AM EDT [facility] RDW 18.7(H) 11.0 - 15.0 % 10/28/2024 5:09 AM EDT [facility] Platelets 38(L) 140 - 400 10E3/uL 10/28/2024 5:09 AM EDT [facility] Comment: CNV Specimen checked for clots. None detected. MPV 7.6 7.5 - 11.5 fL 10/28/2024 5:09 AM EDT [facility] Whole Blood 10/28/2024 4:13 AM EDT 10/28/2024 4:41 AM EDT Kemar Sahni MD LAB BLOOD ORDERABLES Final Result [facility] [address] * (ABNORMAL) POC Glucose Monitoring Device (10/28/2024 4:04 AM EDT) POC Glucose Monitoring Device 103(H) 70 - 100 mg/dL 10/28/2024 4:05 AM EDT [facility] Blood 10/28/2024 4:04 AM EDT 10/28/2024 4:05 AM EDT Semaj Mcnair III, MD POINT OF CARE TEST ORDERABLES Final Result [facility] [address] [facility]. [address] * (ABNORMAL) POC Glucose Monitoring Device (10/28/2024 3:00 AM EDT) POC Glucose Monitoring Device 106(H) 70 - 100 mg/dL 10/28/2024 3:01 AM EDT [facility] Blood 10/28/2024 3:0 0 AM EDT 10/28/2024 3:01 AM EDT us Semaj Mcnair III, MD POINT OF CARE TEST ORDERABLES Final Result [facility] [address] [facility]. [address] * (ABNORMAL) POC Glucose Monitoring Device (10/28/2024 2:32 AM EDT) POC Glucose Monitoring Device 109(H) 70 - 100 mg/dL 10/28/2024 2:33 AM EDT [facility] Blood 10/28/2024 2:32 AM EDT 10/28/2024 2:33 AM EDT Semaj Mcnair III, MD POINT OF CARE TEST ORDERABLES Final Result Performing Organization Address City/[facility]/ZIP Co de Phone Number [facility] [address] [facility]. [address] * (ABNORMAL) POC Glucose Monitoring Device (10/28/2024 2:14 AM EDT) POC Glucose Monitoring Device 115(H) 70 - 100 mg/dL 10/28/2024 2:15 AM EDT [facility] Blood 10/28/2024 2:14 AM EDT 10/28/2024 2:15 AM EDT us Semaj Mcnair III, MD POINT OF CARE TEST ORDERABLES Final Result Performing Organization Address City/[facility]/ZIP Co de Phone Number [facility] [address] [facility]. [address] * (ABNORMAL) POC Glucose Monitoring Device (10/28/2024 2:03 AM EDT) POC Glucose Monitoring Device 101(H) 70 - 100 mg/dL 10/28/2024 2:04 AM EDT [facility] Blood 10/28/2024 2:03 AM EDT 10/28/2024 2:04 AM EDT us Semaj Mcnair III, MD POINT OF CARE TEST ORDERABLES Final Result [facility] [address] * Transfuse RBC Transfusion Rate: Per dept routine (10/28/2024 1:51 AM EDT) John Moreno MD NURSING TREATMENT ORDERABLES - BLOOD ADMIN Final Result Performing Organization Address City/[facility]/ZIP Co de Phone Number EXTERNAL * Transfuse RBC Transfusion Rate: Per dept routine, 1 Units (10/28/2024 1:51 AM EDT) John Moreno MD NURSING TREATMENT ORDERABLES - BLOOD ADMIN Final Result Performing Organization Address City/[facility] Co de Phone Number EXTERNAL * (ABNORMAL) TEG-Bypass/ECMO/Liver HN (Factor function, Platelet/Fibrin Clot Strength w/Clot Breakdown, Heparinase In All Channels) (10/28/2024 12:05 AM EDT) [facility] Citrated Kaolin Reaction Time (TEGECMOLIVER) 7.5 4.6 - 9.1 minutes 10/28/2024 1:22 AM EDT [facility] Citrated Kaolin W/Heparinase Reaction Time (TEGECMOLIVER) 7.7 4.3 - 8.3 minutes 10/28/2024 1:22 AM EDT [facility] Citrated Kaolin Maximum Amplitude (TEGECMOLIVER) 54.4 52.0 - 69.0 mm 10/28/2024 1:22 AM EDT [facility] Citrated Functional Fibrinogen W/Heparinase Maximum Amplitude(TEGEC MOLIVER) 20.4 15.0 - 34.0 mm 10/28/2024 1:22 AM EDT [facility] Citrated Rapid Teg W/Heparinase Maximum Amplitude (TEGECMOLIVER) 51.0(L) 53.0 - 69.0 mm 10/28/2024 1:22 AM EDT [facility] Citrated Kaolin w/Heparinase Percent Lysis (TEGECMOLIVER) 0.0 0.0 - 3.2 % 10/28/2024 1:22 AM EDT [facility] Whole Blood (Citrate) 10/28/2024 12:05 AM EDT 10/28/2024 12:09 AM EDT Kemar Sahni MD LAB BLOOD ORDERABLES Final Result [facility] [address] [facility]. [address] * Magnesium (10/28/2024 12:05 AM EDT) Magnesium 2.2 1.5 - 2.5 mg/dL 10/28/2024 1:59 AM EDT [facility] Plasma 10/28/2024 12:0 5 AM EDT 10/28/2024 12:11 AM EDT Kemar Sahni MD LAB BLOOD ORDERABLES Final Result Performing Organization Address [facility] de Phone Number [facility] [address] * (ABNORMAL) Renal Function Panel w/EGFR (10/28/2024 12:05 AM EDT) Sodium 144 133 - 146 mmol/L 10/28/2024 1:59 AM EDT [facility] Potassium 3.4(L) 3.5 - 5.3 mmol/L 10/28/2024 1:59 AM EDT [facility] Chloride 112(H) 98 - 110 mmol/L 10/28/2024 1:59 AM EDT [facility] CO2 19(L) 21 - 33 mmol/L 10/28/2024 1:59 AM EDT [facility] Anion Gap 13 3 - 16 mmol/L 10/28/2024 1:59 AM EDT [facility] BUN 59(H) 7 - 25 mg/dL 10/28/2024 1:59 AM EDT [facility] Creatinine 2.42(H) 0.60 - 1.30 mg/dL 10/28/2024 1:59 AM EDT [facility] Glucose 118(H) 70 - 100 mg/dL 10/28/2024 1:59 AM EDT [facility] Calcium 9.0 8.6 - 10.3 mg/dL 10/28/2024 1:59 AM EDT [facility] Phosphorus 5.3(H) 2.1 - 4.7 mg/dL 10/28/2024 1:59 AM EDT [facility] Albumin 3.1(L) 3.5 - 5.7 g/dL 10/28/2024 1:59 AM EDT [facility] Osmolality, Calculated 316(H) 278 - 305 mOsm/kg 10/28/2024 1:59 AM EDT [facility] EGFR 34 10/28/2024 1:59 AM EDT [facility] Comment:As of 2021, the estimated [...] Sahni MD LAB BLOOD ORDERABLES Final Result [facility] [address] [id number] * (ABNORMAL) Differential (10/28/2024 12:05 AM EDT) Neutrophils Relative 88.6(H) 40.0 - 80.0 % 10/28/2024 12:41 AM EDT [facility] Lymphocytes Relative 2.5(L) 15.0 - 45.0 % 10/28/2024 12:41 AM EDT [facility] Monocytes Relative 6.1 0.0 - 12.0 % 10/28/2024 12:41 AM EDT [facility] Eosinophils Relative 2.4 0.0 - 8.0 % 10/28/2024 12:41 AM EDT [facility] Basophils Relative 0.4 0.0 - 1.0 % 10/28/2024 12:41 AM EDT [facility] nRBC 0 0 - 0 /100 WBC 10/28/2024 12:41 AM EDT [facility] Neutrophils Absolute 4,341 1,520 - 8,640 /uL 10/28/2024 12:41 AM EDT [facility] Lymphocytes Absolute 123(L) 570 - 4,860 /uL 10/28/2024 12:41 AM EDT [facility] Monocytes Absolute 299 0 - 1,296 /uL 10/28/2024 12:41 AM EDT [facility] Eosinophils Absolute 118 0 - 864 /uL 10/28/2024 12:41 AM EDT [facility] Basophils Absolute 20 0 - 108 /uL 10/28/2024 12:41 AM EDT [facility] Whole Blood 10/28/2024 12:0 5 AM EDT 10/28/2024 12:11 AM EDT Kemar Sahni MD LAB BLOOD ORDERABLES Final Result Performing Organization Address City/State/[facility] Co de Phone Number [facility] [address] [place] [address], [facility] * (ABNORMAL) CBC (10/28/2024 12:05 AM EDT) WBC 4.9 3.8 - 10.8 10E3/uL 10/28/2024 12:41 AM EDT [facility] RBC 2.18(L) 4.20 - 5.80 10E6/uL 10/28/2024 12:41 AM EDT [facility] Hemoglobin 6.7(L) 13.2 - 17.1 g/dL 10/28/2024 12:41 AM EDT [facility] Hematocrit 19.2(L) 38.5 - 50.0 % 10/28/2024 12:41 AM EDT [facility] MCV 87.8 80.0 - 100.0 fL 10/28/2024 12:41 AM EDT [facility] MCH 30.6 27.0 - 33.0 pg 10/28/2024 12:41 AM EDT [facility] MCHC 34.8 32.0 - 36.0 g/dL 10/28/2024 12:41 AM EDT [facility] RDW 19.6(H) 11.0 - 15.0 % 10/28/2024 12:41 AM EDT [facility] Platelets 45(L) 140 - 400 10E3/uL 10/28/2024 12:41 AM EDT [facility] Comment: CNV Specimen checked for clots. None detected. MPV 7.8 7.5 - 11.5 fL 10/28/2024 12:41 AM EDT [facility] Whole Blood 10/28/2024 12:0 5 AM EDT 10/28/2024 12:11 AM EDT Kemar Sahni MD LAB BLOOD ORDERABLES Final Result [facility] [address] * (ABNORMAL) POC Glucose Monitoring Device (10/28/2024 12:03 AM EDT) POC Glucose Monitoring Device 122(H) 70 - 100 mg/dL 10/28/2024 12:04 AM EDT [facility] Blood 10/28/2024 12:0 3 AM EDT 10/28/2024 12:04 AM EDT us Semaj Mcnair III, MD POINT OF CARE TEST ORDERABLES Final Result [facility] [address] * (ABNORMAL) POC Glucose Monitoring Device (10/27/2024 10:03 PM EDT) POC Glucose Monitoring Device 127(H) 70 - 100 mg/dL 10/27/2024 10:03 PM EDT [facility] Blood 10/27/2024 10:0 3 PM EDT 10/27/2024 10:03 PM EDT us Semaj Mcnair III, MD POINT OF CARE TEST ORDERABLES Final Result [facility] [address] [facility]. [address] * (ABNORMAL) POC Glucose Monitoring Device (10/27/2024 8:06 PM EDT) POC Glucose Monitoring Device 128(H) 70 - 100 mg/dL 10/27/2024 8:45 PM EDT [facility] Blood 10/27/2024 8:06 PM EDT 10/27/2024 8:45 PM EDT us Semaj Mcnair III, MD POINT OF CARE TEST ORDERABLES Final Result Performing Organization Address City/[facility]/ZIP Co de Phone Number [facility] [address] [facility]. [address] * (ABNORMAL) POC Glucose Monitoring Device (10/27/2024 6:00 PM EDT) POC Glucose Monitoring Device 128(H) 70 - 100 mg/dL 10/27/2024 6:00 PM EDT [facility] Blood 10/27/2024 6:00 PM EDT 10/27/2024 6:00 PM EDT us Semaj Mcnair III, MD POINT OF CARE TEST ORDERABLES Final Result [facility] [address] [facility]. [address] * Lactic Acid, STAT (10/27/2024 5:41 PM EDT) Lactate 0.5 0.5 - 2.2 mmol/L 10/27/2024 6:28 PM EDT [facility] Plasma 10/27/2024 5:41 PM EDT 10/27/2024 5:49 PM EDT Narrative [facility] - 10/27/2024 6:28 PM EDT Redraw John Moreno MD LAB BLOOD ORDERABLES Final R esult Performing Organization Address City/[facility]/ZIP Co de Phone Number [facility] [address] [facility]. [address] * (ABNORMAL) Hepatic Function Panel, STAT (10/27/2024 5:13 PM EDT) Total Bilirubin 1.7(H) 0.0 - 1.5 mg/dL 10/27/2024 5:50 PM EDT [facility] Bilirubin, Direct 1.17(H) 0.00 - 0.40 mg/dL 10/27/2024 5:50 PM EDT [facility] AST 60(H) 13 - 39 U/L 10/27/2024 5:50 PM EDT [facility] ALT 134(H) 7 - 52 U/L 10/27/2024 5:50 PM EDT [facility] Alkaline Phosphatase 27(L) 36 - 125 U/L 10/27/2024 5:50 PM EDT [facility] Total Protein 4.1(L) 6.4 - 8.9 g/dL 10/27/2024 5:50 PM EDT [facility] Albumin 2.9(L) 3.5 - 5.7 g/dL 10/27/2024 5:50 PM EDT [facility] Bilirubin, Indirect 0.53 0.00 - 1.10 mg/dL 10/27/2024 5:50 PM EDT [facility] Plasma 10/27/2024 5:13 PM EDT 10/27/2024 5:23 PM EDT Shay Plata MD LAB BLOOD ORDERABLES Final Result Performing Organization Address [facility]/ZIP Co de Phone Number [facility] [address] * (ABNORMAL) TEG-Bypass/ECMO/Liver HN (Factor function, Platelet/Fibrin Clot Strength w/Clot Breakdown, Heparinase In All Channels) (10/27/2024 5:13 PM EDT) Citrated Kaolin Reaction Time (TEGECMOLIVER) 8.0 4.6 - 9.1 minutes 10/27/2024 6:56 PM EDT [facility] Citrated Kaolin W/Heparinase Reaction Time (TEGECMOLIVER) 6.8 4.3 - 8.3 minutes 10/27/2024 6:56 PM EDT [facility] Citrated Kaolin Maximum Amplitude (TEGECMOLIVER) 55.4 52.0 - 69.0 mm 10/27/2024 6:56 PM EDT [facility] Citrated Functional Fibrinogen W/Heparinase Maximum Amplitude(TEGEC MOLIVER) 22.9 15.0 - 34.0 mm 10/27/2024 6:56 PM EDT [facility] Citrated Rapid Teg W/Heparinase Maximum Amplitude (TEGECMOLIVER) 50.8(L) 53.0 - 69.0 mm 10/27/2024 6:[address] [facility] Citrated Kaolin w/Heparinase Percent Lysis (TEGECMOLIVER) 0.1 0.0 - 3.2 % 10/27/2024 6:56 PM EDT [facility] Whole Blood (Citrate) 10/27/2024 5:13 PM EDT 10/27/2024 5:20 PM EDT us Kemar Sahni MD LAB BLOOD ORDERABLES Final Result [facility] [address] * (ABNORMAL) Protime-INR (10/27/2024 5:13 PM EDT) Protime 15.2(H) 12.1 - 15.1 seconds 10/27/2024 5:40 PM EDT [facility] INR 1.1 0.9 - 1.1 10/27/2024 5:40 PM EDT [facility] Comment: RECOMMENDED THERAPEUTIC RANGES USING INR : Stable oral anticoagulant therapy: 2.0 - 3.0 Mechanical prosthetic heart valve: 2.5 - 3.5 Recurrent acute myocardial infarction: 2.5 - 3.5 Plasma 10/27/2024 5:13 PM EDT 10/27/2024 5:23 PM EDT Kemar Sahni MD LAB BLOOD ORDERABLES Final Result Performing Organization Address City/[facility]/ZIP Co de Phone Number [facility] [address] [facility]. [address] * Magnesium (10/27/2024 5:13 PM EDT) Magnesium 2.4 1.5 - 2.5 mg/dL 10/27/2024 5:53 PM EDT [facility] Plasma 10/27/2024 5:13 PM EDT 10/27/2024 5:23 PM EDT Kemar Sahni MD LAB BLOOD ORDERABLES Final Result Performing Organization Address [facility] de Phone Number [facility] [address] * (ABNORMAL) Hepatic Function Panel (10/27/2024 5:13 PM EDT) Total Bilirubin 1.7(H) 0.0 - 1.5 mg/dL 10/27/2024 5:53 PM EDT [facility] Bilirubin, Direct 1.10(H) 0.00 - 0.40 mg/dL 10/27/2024 5:53 PM EDT [facility] AST 62(H) 13 - 39 U/L 10/27/2024 5:53 PM EDT [facility] ALT 134(H) 7 - 52 U/L 10/27/2024 5:53 PM EDT [facility] Alkaline Phosphatase 27(L) 36 - 125 U/L 10/27/2024 5:53 PM EDT [facility] Total Protein 4.1(L) 6.4 - 8.9 g/dL 10/27/2024 5:53 PM EDT [facility] Albumin 2.9(L) 3.5 - 5.7 g/dL 10/27/2024 5:53 PM EDT [facility] Bilirubin, Indirect 0.60 0.00 - 1.10 mg/dL 10/27/2024 5:53 PM EDT [facility] Plasma 10/27/2024 5:13 PM EDT 10/27/2024 5:23 PM EDT Kemar Sahni MD LAB BLOOD ORDERABLES Final Result [facility] [address] [place] [address], [facility] * (ABNORMAL) Renal Function Panel w/EGFR (10/27/2024 5:13 PM EDT) Sodium 142 133 - 146 mmol/L 10/27/2024 5:53 PM EDT [facility] Potassium 3.4(L) 3.5 - 5.3 mmol/L 10/27/2024 5:53 PM EDT [facility] Chloride 109 98 - 110 mmol/L 10/27/2024 5:53 PM EDT [facility] CO2 22 21 - 33 mmol/L 10/27/2024 5:53 PM EDT [facility] Anion Gap 11 3 - 16 mmol/L 10/27/2024 5:53 PM EDT [facility] BUN 61(H) 7 - 25 mg/dL 10/27/2024 5:53 PM EDT [facility] Creatinine 2.42(H) 0.60 - 1.30 mg/dL 10/27/2024 5:53 PM EDT [facility] Glucose 125(H) 70 - 100 mg/dL 10/27/2024 5:53 PM EDT [facility] Calcium 8.8 8.6 - 10.3 mg/dL 10/27/2024 5:53 PM EDT [facility] Phosphorus 5.7(H) 2.1 - 4.7 mg/dL 10/27/2024 5:53 PM EDT [facility] Albumin 2.9(L) 3.5 - 5.7 g/dL 10/27/2024 5:53 PM EDT [facility] Osmolality, Calculated 313(H) 278 - 305 mOsm/kg 10/27/2024 5:53 PM EDT [facility] EGFR 34 10/27/2024 5:53 PM EDT [facility] Comment:As of 2021, the estimated [...] Sahni MD LAB BLOOD ORDERABLES Final Result [facility] [address] * (ABNORMAL) CBC (10/27/2024 5:13 PM EDT) WBC 4.9 3.8 - 10.8 10E3/uL 10/27/2024 6:14 PM EDT [facility] RBC 2.44(L) 4.20 - 5.80 10E6/uL 10/27/2024 6:14 PM EDT [facility] Hemoglobin 7.4(L) 13.2 - 17.1 g/dL 10/27/2024 6:14 PM EDT [facility] Hematocrit 21.4(L) 38.5 - 50.0 % 10/27/2024 6:14 PM EDT [facility] MCV 87.6 80.0 - 100.0 fL 10/27/2024 6:14 PM EDT [facility] MCH 30.3 27.0 - 33.0 pg 10/27/2024 6:14 PM EDT [facility] MCHC 34.6 32.0 - 36.0 g/dL 10/27/2024 6:14 PM EDT [facility] RDW 19.6(H) 11.0 - 15.0 % 10/27/2024 6:14 PM EDT [facility] Platelets 47(L) 140 - 400 10E3/uL 10/27/2024 6:14 PM EDT [facility] Comment: CNV Specimen checked for clots. None detected. MPV 8.1 7.5 - 11.5 fL 10/27/2024 6:14 PM EDT [facility] Whole Blood 10/27/2024 5:13 PM EDT 10/27/2024 5:23 PM EDT Kemar Sahni MD LAB BLOOD ORDERABLES Final Result Performing Organization Address City/[facility]/ZIP Co de Phone Number [facility] [address] * (ABNORMAL) POC Glucose Monitoring Device (10/27/2024 3:57 PM EDT) [facility] POC Glucose Monitoring Device 131(H) 70 - 100 mg/dL 10/27/2024 3:58 PM EDT [facility] Blood 10/27/2024 3:57 PM EDT 10/27/2024 3:58 PM EDT Semaj Mcnair III, MD POINT OF CARE TEST ORDERABLES Final Result [facility] [address] * (ABNORMAL) CBC, STAT (10/27/2024 2:40 PM EDT) Pathologist [facility] WBC 5.8 3.8 - 10.8 10E3/uL 10/27/2024 2:54 PM EDT [facility] RBC 2.43(L) 4.20 - 5.80 10E6/uL 10/27/2024 2:54 PM EDT [facility] Hemoglobin 7.5(L) 13.2 - 17.1 g/dL 10/27/2024 2:54 PM EDT [facility] Hematocrit 21.5(L) 38.5 - 50.0 % 10/27/2024 2:54 PM EDT [facility] MCV 88.2 80.0 - 100.0 fL 10/27/2024 2:54 PM EDT [facility] MCH 30.7 27.0 - 33.0 pg 10/27/2024 2:54 PM EDT [facility] MCHC 34.8 32.0 - 36.0 g/dL 10/27/2024 2:54 PM EDT [facility] RDW 19.1(H) 11.0 - 15.0 % 10/27/2024 2:54 PM EDT [facility] Platelets 50(L) 140 - 400 10E3/uL 10/27/2024 2:54 PM EDT [facility] MPV 7.5 7.5 - 11.5 fL 10/27/2024 2:54 PM EDT [facility] Whole Blood 10/27/2024 2:40 PM EDT 10/27/2024 2:44 PM EDT us John Moreno MD LAB BLOOD ORDERABLES Final R esult [facility] [address] [place] [address], [facility] * (ABNORMAL) Blood Gas, Arterial, STAT (10/27/2024 2:40 PM EDT) O2 Sat, Arterial 98 10/27/2024 2:46 PM EDT [facility] FIO2 RA 10/27/2024 2:46 PM EDT [facility] pH, Arterial 7.37 7.35 - 7.45 10/27/2024 2:46 PM EDT [facility] pCO2, Arterial 35 35 - 45 mm Hg 10/27/2024 2:46 PM EDT [facility] pO2, Arterial 92 80 - 100 mm Hg 10/27/2024 2:46 PM EDT [facility] HCO3, Arterial 21(L) 22 - 26 mmol/L 10/27/2024 2:46 PM EDT [facility] CO2 Content,Arteri al 21(L) 23 - 27 mmol/L 10/27/2024 2:46 PM EDT [facility] Base Excess, Arterial -4.6(L) -2.0 - 3.0 mmol/L 10/27/2024 2:46 PM EDT [facility] %HBO2, Arterial 95.4 95.0 - 98.0 % 10/27/2024 2:46 PM EDT [facility] Carboxyhemoglo bin, Arterial 1.6 % 10/27/2024 2:46 PM EDT [facility] Comment: CARBOXYHEMOGLOBIN (CO) REFERENCE RANGES: Non-Smokers: <2 % Smokers: <8 % TOXIC: >20 % Methemoglobin, Arterial 1.0 0.0 - 1.5 % 10/27/2024 2:46 PM EDT [facility] Reduced hemoglobin, Arterial 2.1 0.0 - 5.0 % 10/27/2024 2:46 PM EDT [facility] Blood, Arterial 10/27/2024 2 :40 PM EDT 10/27/2024 2:44 PM EDT Narrative [facility] - 10/27/2024 2:46 PM EDT Post extubation John Moreno MD LAB BLOOD ORDERABLES Final R esult Performing Organization Address City/[facility]/ZIP Co de Phone Number [facility] [address] * (ABNORMAL) POC Glucose Monitoring Device (10/27/2024 2:06 PM EDT) [facility] POC Glucose Monitoring Device 134(H) 70 - 100 mg/dL 10/27/2024 2:06 PM EDT [facility] Blood 10/27/2024 2:06 PM EDT 10/27/2024 2:06 PM EDT Semaj Mcnair III, MD POINT OF CARE TEST ORDERABLES Final Result [facility] [address] [place] [id number] * (ABNORMAL) Blood gas, arterial (10/27/2024 12:35 PM EDT) O2 Sat, Arterial 99 10/27/2024 12:46 PM EDT [facility] FIO2 SBT 30% 10/27/2024 12:46 PM EDT [facility] pH, Arterial 7.35 7.35 - 7.45 10/27/2024 12:46 PM EDT [facility] pCO2, Arterial 37 35 - 45 mm Hg 10/27/2024 12:46 PM EDT [facility] pO2, Arterial 182(H) 80 - 100 mm Hg 10/27/2024 12:46 PM EDT [facility] HCO3, Arterial 21(L) 22 - 26 mmol/L 10/27/2024 12:46 PM EDT [facility] CO2 Content,Arteri al 22(L) 23 - 27 mmol/L 10/27/2024 12:46 PM EDT [facility] Base Excess, Arterial -4.8(L) -2.0 - 3.0 mmol/L 10/27/2024 12:46 PM EDT [facility] %HBO2, Arterial 96.3 95.0 - 98.0 % 10/27/2024 12:46 PM EDT [facility] Carboxyhemoglo bin, Arterial 1.7 % 10/27/2024 12:46 PM EDT [facility] Comment: CARBOXYHEMOGLOBIN (CO) REFERENCE RANGES: Non-Smokers: <2 % Smokers: <8 % TOXIC: >20 % Methemoglobin, Arterial 1.4 0.0 - 1.5 % 10/27/2024 12:46 PM EDT [facility] Reduced hemoglobin, Arterial 0.6 0.0 - 5.0 % 10/27/2024 12:46 PM EDT [facility] Blood, Arterial 10/27/2024 1 2:35 PM EDT 10/27/2024 12:42 PM EDT Narrative [facility] - 10/27/2024 12:46 PM EDT Please obtain post SBT us Shay Sifuentes MD LAB BLOOD ORDERABLES Final Resu lt [facility] [address] [place] [address], [facility] * (ABNORMAL) TEG-Bypass/ECMO/Liver HN (Factor function, Platelet/Fibrin Clot Strength w/Clot Breakdown, Heparinase In All Channels) (10/27/2024 12:07 PM EDT) Citrated Kaolin Reaction Time (TEGECMOLIVER) 7.9 4.6 - 9.1 minutes 10/27/2024 1:24 PM EDT [facility] Citrated Kaolin W/Heparinase Reaction Time (TEGECMOLIVER) 8.3 4.3 - 8.3 minutes 10/27/2024 1:[address] [facility] Citrated Kaolin Maximum Amplitude (TEGECMOLIVER) 52.0 52.0 - 69.0 mm 10/27/2024 1:24 PM EDT [facility] Citrated Functional Fibrinogen W/Heparinase Maximum Amplitude(TEGEC MOLIVER) 20.1 15.0 - 34.0 mm 10/27/2024 1:24 PM EDT [facility] Citrated Rapid Teg W/Heparinase Maximum Amplitude (TEGECMOLIVER) 49.4(L) 53.0 - 69.0 mm 10/27/2024 1:[address] [facility] Citrated Kaolin w/Heparinase Percent Lysis (TEGECMOLIVER) 0.0 0.0 - 3.2 % 10/27/2024 1:[address] [facility] Whole Blood (Citrate) 10/27/2024 12:07 PM EDT 10/27/2024 12:09 PM EDT us Kemar Sahni MD LAB BLOOD ORDERABLES Final Result [facility] [address] [place] [address], [facility] * (ABNORMAL) POC Glucose Monitoring Device (10/27/2024 12:01 PM EDT) POC Glucose Monitoring Device 121(H) 70 - 100 mg/dL 10/27/2024 12:02 PM EDT [facility] Blood 10/27/2024 12:0 1 PM EDT 10/27/2024 12:01 PM EDT Semaj Mcnair III, MD POINT OF CARE TEST ORDERABLES Final Result Performing Organization Address [facility] Co de Phone Number [facility] [address] * (ABNORMAL) POC Glucose Monitoring Device (10/27/2024 10:59 AM EDT) POC Glucose Monitoring Device 126(H) 70 - 100 mg/dL 10/27/2024 11:10 AM EDT [facility] Blood 10/27/2024 10:5 9 AM EDT 10/27/2024 11:10 AM EDT Semaj Mcnair III, MD POINT OF CARE TEST ORDERABLES Final Result Performing Organization Address [facility] de Phone Number [facility] [address] * ECG 12 lead (MUSE) (10/27/2024 10:17 AM EDT) 10/27/2024 10:1 7 AM EDT Narrative MUSE - 10/27/2024 2:51 PM EDT Ventricular Rate: 91 BPM Atrial Rate: 91 BPM P-R Interval: 168 ms QRS Duration: 90 ms QT: 274 ms QTc: 337 ms P [place]: 60 degrees R [place]: -30 degrees T [place]: -15 degrees Diagnosis Line: NORMAL SINUS RHYTHM ^ LEFT AXIS DEVIATION, LEFT ANTERIOR HEMIBLOCK ^ NONSPECIFIC T WAVE CHANGE ^ ABNORMAL ECG ^ ^ Confirmed by MD ROLLY, [facility] ([id number]) on 10/27/2024 2:51:52 PM Shay Sifuentes MD ECG ORDERABLES Final Result Performing Organization Address City/[facility] Co de Phone Number MUSE * (ABNORMAL) POC Glucose Monitoring Device (10/27/2024 10:00 AM EDT) POC Glucose Monitoring Device 121(H) 70 - 100 mg/dL 10/27/2024 10:01 AM EDT [facility] Blood 10/27/2024 10:0 0 AM EDT 10/27/2024 10:01 AM EDT Semaj Mcnair III, MD POINT OF CARE TEST ORDERABLES Final Result [facility] [address] [place] [address], [facility] * US Renal [...] US ORDERABLES Final Result * US Duplex Osm-Isu-Sexmtvs Comp (10/27/2024 9:51 AM EDT) Anatomical Region [...] EXAM: US ABDOMEN LIMITED EXAM: US DUPLEX [id number] COMPLETE INDICATION: Post-op liver transplant COMPARISON: None [...] absent.. Pancreas: Obscured by overlying bowel gas. [place] right kidney: 12.5 cm in length. Normal [...] EXAM: US ABDOMEN LIMITED EXAM: US DUPLEX [id number] COMPLETE INDICATION: Post-op liver transplant COMPARISON: None [...] absent.. Pancreas: Obscured by overlying bowel gas. [place] right kidney: 12.5 cm in length. Normal [...] EXAM: US ABDOMEN LIMITED EXAM: US DUPLEX [id number] COMPLETE INDICATION: Post-op liver transplant COMPARISON: None [...] absent.. Pancreas: Obscured by overlying bowel gas. [place] right kidney: 12.5 cm in length. Normal [...] EXAM: US ABDOMEN LIMITED EXAM: US DUPLEX [id number] COMPLETE INDICATION: Post-op liver transplant COMPARISON: None [...] absent.. Pancreas: Obscured by overlying bowel gas. [place] right kidney: 12.5 cm in length. Normal [...] - 100 mg/dL 10/27/2024 9:06 AM EDT [facility] Blood 10/27/2024 9:05 AM EDT 10/27/2024 9:06 AM EDT Semaj Mcnair III, MD POINT OF CARE TEST ORDERABLES Final Result [facility] [address] [place] [id number], [facility] * X-ray Portable [...] - 15.1 seconds 10/27/2024 8:35 AM EDT [facility] INR 1.2(H) 0.9 - 1.1 10/27/2024 8:35 AM EDT [facility] Comment: RECOMMENDED THERAPEUTIC RANGES USING INR : Stable oral anticoagulant therapy: 2.0 - 3.0 Mechanical prosthetic heart valve: 2.5 - 3.5 Recurrent acute myocardial infarction: 2.5 - 3.5 Plasma 10/27/2024 8:16 AM EDT 10/27/2024 8:20 AM EDT us John Moreno MD LAB BLOOD ORDERABLES Final R esult [facility] [address] [place], [place] [address] * Magnesium (10/27/2024 8:00 AM EDT) Magnesium 1.8 1.5 - 2.5 mg/dL 10/27/2024 10:50 AM EDT [facility] Plasma 10/27/2024 8:00 AM EDT 10/27/2024 10:31 AM EDT Kemar Sahni MD LAB BLOOD ORDERABLES Final Result [facility] [address] [place] [address], [facility] * (ABNORMAL) Renal Function Panel w/EGFR (10/27/2024 8:00 AM EDT) Sodium 142 133 - 146 mmol/L 10/27/2024 10:18 AM EDT [facility] Potassium 3.0(L) 3.5 - 5.3 mmol/L 10/27/2024 10:18 AM EDT [facility] Chloride 109 98 - 110 mmol/L 10/27/2024 10:18 AM EDT [facility] CO2 21 21 - 33 mmol/L 10/27/2024 10:18 AM EDT [facility] Anion Gap 12 3 - 16 mmol/L 10/27/2024 10:18 AM EDT [facility] BUN 59(H) 7 - 25 mg/dL 10/27/2024 10:18 AM EDT [facility] Creatinine 2.54(H) 0.60 - 1.30 mg/dL 10/27/2024 10:18 AM EDT [facility] Glucose 111(H) 70 - 100 mg/dL 10/27/2024 10:18 AM EDT [facility] Calcium 9.1 8.6 - 10.3 mg/dL 10/27/2024 10:18 AM EDT [facility] Phosphorus 5.5(H) 2.1 - 4.7 mg/dL 10/27/2024 10:18 AM EDT [facility] Albumin 3.0(L) 3.5 - 5.7 g/dL 10/27/2024 10:18 AM EDT [facility] Osmolality, Calculated 311(H) 278 - 305 mOsm/kg 10/27/2024 10:18 AM EDT [facility] EGFR 32 10/27/2024 10:18 AM EDT [facility] Comment:As of 2021, the estimated [...] [facility] Co de Phone Number [facility] [address] * (ABNORMAL) Hepatic Function Panel, STAT (10/27/2024 8:00 AM EDT) Total Bilirubin 1.3 0.0 - 1.5 mg/dL 10/27/2024 8:51 AM EDT [facility] Bilirubin, Direct 0.93(H) 0.00 - 0.40 mg/dL 10/27/2024 8:51 AM EDT [facility] AST 88(H) 13 - 39 U/L 10/27/2024 8:51 AM EDT [facility] ALT 149(H) 7 - 52 U/L 10/27/2024 8:51 AM EDT [facility] Alkaline Phosphatase 26(L) 36 - 125 U/L 10/27/2024 8:51 AM EDT [facility] Total Protein 4.0(L) 6.4 - 8.9 g/dL 10/27/2024 8:51 AM EDT [facility] Albumin 3.0(L) 3.5 - 5.7 g/dL 10/27/2024 8:51 AM EDT [facility] Bilirubin, Indirect 0.37 0.00 - 1.10 mg/dL 10/27/2024 8:51 AM EDT [facility] Plasma 10/27/2024 8:00 AM EDT 10/27/2024 8:20 AM EDT Semaj Mcnair III, MD LAB BLOOD ORDERABLE S Final Result Performing Organization Address [facility] Co de Phone Number [facility] [address] * (ABNORMAL) Lactic Acid, STAT (10/27/2024 8:00 AM EDT) Lactate 0.4(L) 0.5 - 2.2 mmol/L 10/27/2024 8:43 AM EDT [facility] Plasma 10/27/2024 8:00 AM EDT 10/27/2024 8:20 AM EDT Semaj Mcnair III, MD LAB BLOOD ORDERABLE S Final Result Performing Organization Address [facility] Co de Phone Number [facility] [address] * (ABNORMAL) Blood Gas, Arterial, STAT (10/27/2024 8:00 AM EDT) O2 Sat, Arterial 100 10/27/2024 8:23 AM EDT [facility] pH, Arterial 7.36 7.35 - 7.45 10/27/2024 8:23 AM EDT [facility] pCO2, Arterial 37 35 - 45 mm Hg 10/27/2024 8:23 AM EDT [facility] pO2, Arterial 245(H) 80 - 100 mm Hg 10/27/2024 8:23 AM EDT [facility] HCO3, Arterial 22 22 - 26 mmol/L 10/27/2024 8:23 AM EDT [facility] CO2 Content,Arteri al 22(L) 23 - 27 mmol/L 10/27/2024 8:23 AM EDT [facility] Base Excess, Arterial -4.2(L) -2.0 - 3.0 mmol/L 10/27/2024 8:23 AM EDT [facility] %HBO2, Arterial 96.5 95.0 - 98.0 % 10/27/2024 8:23 AM EDT [facility] Carboxyhemoglo bin, Arterial 2.2 % 10/27/2024 8:23 AM EDT [facility] Comment: CARBOXYHEMOGLOBIN (CO) REFERENCE RANGES: Non-Smokers: <2 % Smokers: <8 % TOXIC: >20 % Methemoglobin, Arterial 1.2 0.0 - 1.5 % 10/27/2024 8:23 AM EDT [facility] Reduced hemoglobin, Arterial 0.0 0.0 - 5.0 % 10/27/2024 8:23 AM EDT [facility] Blood, Arterial 10/27/2024 8 :00 AM EDT 10/27/2024 8:19 AM EDT Narrative [facility] - 10/27/2024 8:23 AM EDT Specimen is beyond 15 minutes from time of collection. Results may be compromised. Review results critically. us Kemar Sahni MD LAB BLOOD ORDERABLES Final Result [facility] [address] [place] [id number], [facility] * (ABNORMAL) TEG-Bypass/ECMO/Liver HN (Factor function, Platelet/Fibrin Clot Strength w/Clot Breakdown, Heparinase In All Channels) (10/27/2024 8:00 AM EDT) Citrated Kaolin Reaction Time (TEGECMOLIVER) 7.8 4.6 - 9.1 minutes 10/27/2024 9:39 AM EDT [facility] Citrated Kaolin W/Heparinase Reaction Time (TEGECMOLIVER) 8.0 4.3 - 8.3 minutes 10/27/2024 9:39 AM EDT [facility] Citrated Kaolin Maximum Amplitude (TEGECMOLIVER) 52.7 52.0 - 69.0 mm 10/27/2024 9:39 AM EDT [facility] Citrated Functional Fibrinogen W/Heparinase Maximum Amplitude(TEGEC MOLIVER) 19.0 15.0 - 34.0 mm 10/27/2024 9:39 AM EDT [facility] Citrated Rapid Teg W/Heparinase Maximum Amplitude (TEGECMOLIVER) 49.5(L) 53.0 - 69.0 mm 10/27/2024 9:39 AM EDT [facility] Citrated Kaolin w/Heparinase Percent Lysis (TEGECMOLIVER) 0.0 0.0 - 3.2 % 10/27/2024 9:39 AM EDT [facility] Whole Blood (Citrate) 10/27/2024 8:00 AM EDT 10/27/2024 8:19 AM EDT Kemar Sahni MD LAB BLOOD ORDERABLES Final Result Performing Organization Address [facility] Co de Phone Number [facility] [address] [place] [address] * (ABNORMAL) Katie-Watkins virus VCA IgG Antibody (10/27/2024 8:00 AM EDT) EBV VCA IgG Positive( A) Negative 10/27/2024 11:30 AM EDT [facility] Comment:Presence of detectab le VCA IgG antibodies. 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 EBV IGG NUM 314.00(H) 0.00 - 17.99 U/mL 10/27/2024 11:30 AM EDT [facility] Serum 10/27/2024 8:00 AM EDT 10/27/2024 8:20 AM EDT Kemar Sahni MD LAB BLOOD ORDERABLES Final Result Performing Organization Address City/[facility]/ZIP Co de Phone Number [facility] [address] [place] [address] * Hemoglobin A1c (10/27/2024 8:00 AM EDT) Hemoglobin A1C 5.0 4.0 - 5.6 % 10/27/2024 11:12 AM EDT [facility] Comment: Hemoglobin A1c Interpretation Guidelines: [...] Final Result Performing Organization Address City/[facility] Co de Phone Number [facility] [address] [facility] * (ABNORMAL) POC Glucose Monitoring Device (10/27/2024 7:59 AM EDT) POC Glucose Monitoring Device 113(H) 70 - 100 mg/dL 10/27/2024 7:59 AM EDT [facility] Blood 10/27/2024 7:59 AM EDT 10/27/2024 7:59 AM EDT Semja Mcnair III, MD POINT OF CARE TEST ORDERABLES Final Result Performing Organization Address City/[facility] Co de Phone Number [facility] [address] [facility] * X-ray Abdomen AP view (10/27/2024 [...] Units (10/27/2024 6:16 AM EDT) Product Code E9553L29 [facility] Unit Number [id number] [facility] Dispense Status Presumed Transfused_PT [facility] Blood Expiration Date [id number] [facility] Coding System [id number] [facility] Product Code L2727W77 [facility] Unit Number [id number] [facility] Dispense Status Presumed Transfused_PT [facility] Blood Expiration Date [id number] [facility]LL Coding System [id number] [facility] Blood Bank Product John Pina MD BLOOD BANK PRODUCT ORDERABLES F inal Result Performing Organization Address City/[facility]/ZIP Co de Phone Number [facility] * Prepare Platelets, leukoreduced, 1 Units (10/27/2024 6:16 AM EDT) Product Code C0926E04 [facility] Unit Number [id number] [facility] Dispense Status Presumed Transfused_PT [facility] Blood Expiration Date [id number] [facility] Coding System [id number] [facility] Blood Bank Product Eber Quinones MD BLOOD BANK PRODUCT ORDER PAL Final Result Performing Organization Address [facility] Co de Phone Number [facility] * Prepare Cryoprecipitate, 1 Units (10/27/2024 6:16 AM EDT) Product Code S8701Z05 [facility] Unit Number [id number] [facility] Dispense Status Presumed Transfused_PT [facility]LL Blood Expiration Date HCLL Coding System [id number] [facility]LL Product Code L6327E56 [facility] Unit Number [id number] [facility] Dispense Status Presumed Transfused_PT [facility] Blood Expiration Date [id number] HCLL Coding System [id number] [facility] Blood Bank Product Eber Quinones MD BLOOD BANK PRODUCT ORDER PAL Final Result Performing Organization Address City/[facility]/ZIP Co de Phone Number [facility] * Prepare Fresh Frozen Plasma, 10 Units (10/27/2024 6:16 AM EDT) Product Code N4501I11 [facility] Unit Number [id number] [facility] Dispense Status Presumed Transfused_PT [facility] Blood Expiration Date HCLL Coding System [id number] HC[facility] Product Code L2026P63 [facility] Unit Number [id number] [facility] Dispense Status Presumed Transfused_PT [facility]LL Blood Expiration Date HCLL Coding System UHCR904 HC[facility] Product Code R1271A23 [facility] Unit Number [id number] HCLL Dispense Status Presumed Transfused_PT HCLL Blood Expiration Date HCLL Coding System SBLX488 HCLL Product Code P1935K08 HC[facility] Unit Number [id number] HCLL Dispense Status Presumed Transfused_PT HCLL Blood Expiration Date HCLL Coding System TOPB914 HCLL Product Code I0024A28 HCLL Unit Number [id number] [facility] Dispense Status Released from Crossmatch_RE [facility]LL Blood Expiration Date [id number] HCLL Coding System [id number] HCLL Product Code [id number] HCLL Unit Number [id number] HCLL Dispense Status Released from Crossmatch_RE HCLL Blood Expiration Date HCLL Coding System [id number] HCLL Product Code R3143L89 HCLL Unit Number [id number] HCLL Dispense Status Presumed Transfused_PT HCLL Blood Expiration Date HCLL Coding System [id number] HCLL Product Code J1340M86 HCLL Unit Number [id number] HCLL Dispense Status Presumed Transfused_PT HCLL Blood Expiration Date [id number] HCLL Coding System CSVG714 HCLL Product Code I7631I16 HCLL Unit Number [id number] HCLL Dispense Status Presumed Transfused_PT HCLL Blood Expiration Date HCLL Coding System CTCT063 HCLL Product Code W6851U14 HCLL Unit Number [id number] HCLL Dispense Status Presumed Transfused_PT HCLL Blood Expiration Date HCLL Coding System ZZHF657 HCLL Blood Bank Product Leandra Og MD BLOOD BANK PRODUCT ORD ERABLES Final Result HCLL * Prepare Platelets, leukoreduced, 1 Units (10/27/2024 6:16 AM EDT) Product Code D3028Y68 HCLL Unit Number [id number] HCLL Dispense Status Presumed Transfused_PT HCLL Blood Expiration Date [id number] HCLL Coding System IGNT570 HCLL Blood Bank Product Ben Blake MD BLOOD BANK PRODUCT ORDERABLES Final Result Performing Organization Address City/[facility] Co de Phone Number HCLL * Prepare Fresh Frozen Plasma (10/27/2024 6:15 AM EDT) Product Code B5990C26 HCLL Unit Number [id number] HCLL Dispense Status Presumed Transfused_PT HCLL Blood Expiration Date HCLL Coding System BYPA715 HCLL Product Code H5338X52 HCLL Unit Number [id number] HCLL Dispense Status Released from Crossmatch_RE HCLL Blood Expiration Date HCLL Coding System RVDZ241 HCLL Product Code M9827S28 HCLL Unit Number [id number] HCLL Dispense Status Presumed Transfused_PT HCLL Blood Expiration Date HCLL Coding System ANOJ043 HCLL Product Code R5125Y14 HCLL Unit Number [id number] HCLL Dispense Status Presumed Transfused_PT HCLL Blood Expiration Date HCLL Coding System FNDN568 HCLL Product Code B8806N52 HCLL Unit Number [id number] HCLL Dispense Status Released from Crossmatch_RE HCLL Blood Expiration Date HCLL Coding System JWHV983 HCLL us Attending Provider Unknown BLOOD BANK PRODUCT OR DERABLES Final Result Performing Organization Address City/[facility] Co de Phone Number HCLL * Prepare RBC, leukoreduced (10/27/2024 6:15 AM EDT) Product Code Y1901I75 HCLL Unit Number [id number] HCLL Dispense Status Presumed Transfused_PT HCLL Blood Expiration Date 813044891243 HCLL Coding System KQRH187 HCLL Product Code I7882K36 HCLL Unit Number [id number] HCLL Dispense Status Released from Crossmatch_RE HCLL Blood Expiration Date HCLL Coding System CQBB653 HCLL Product Code R3019W11 HCLL Unit Number [id number] HCLL Dispense Status Released from Crossmatch_RE HCLL Blood Expiration Date 180715363494 HCLL Coding System SUOA540 HCLL Product Code G4159L89 HCLL Unit Number [id number] HCLL Dispense Status Released from Crossmatch_RE HCLL Blood Expiration Date 430385624861 HCLL Coding System IOXC454 HCLL Product Code R7578M94 HCLL Unit Number [id number] HCLL Dispense Status Released from Crossmatch_RE HCLL Blood Expiration Date 367520362386 HCLL Coding System XLUW712 HCLL us Attending Provider Unknown BLOOD BANK PRODUCT OR DERABLES Final Result Performing Organization Address City/[facility] Co de Phone Number HCLL * Prepare RBC, leukoreduced, 10 Units (10/27/2024 6:15 AM EDT) Product Code O1343B89 HCLL Unit Number [id number] HCLL Dispense Status Presumed Transfused_PT HCLL Blood Expiration Date 381957411742 HCLL Coding System ORME475 HCLL Product Code N4938H70 HCLL Unit Number [id number] HCLL Dispense Status Presumed Transfused_PT HCLL Blood Expiration Date 905457307840 HCLL Coding System SDTY017 HCLL Product Code P6176Y41 HCLL Unit Number [id number] HCLL Dispense Status Presumed Transfused_PT HCLL Blood Expiration Date 358004176833 HCLL Coding System BIWV279 HCLL Product Code J7988H88 HCLL Unit Number [id number] HCLL Dispense Status Presumed Transfused_PT HCLL Blood Expiration Date 520791836562 HCLL Coding System ZSQK074 HCLL Product Code N3879P64 HCLL Unit Number [id number] HCLL Dispense Status Presumed Transfused_PT HCLL Blood Expiration Date 329631802268 HCLL Coding System XSRS536 HCLL Product Code J7136B71 HCLL Unit Number [id number] HCLL Dispense Status Presumed Transfused_PT HCLL Blood Expiration Date 534656254313 HCLL Coding System PSOI072 HCLL Product Code X3793W21 HCLL Unit Number [id number] HCLL Dispense Status Presumed Transfused_PT HCLL Blood Expiration Date 811316232204 HCLL Coding System CHPV806 HCLL Product Code I3088F52 HCLL Unit Number [id number] HCLL Dispense Status Presumed Transfused_PT HCLL Blood Expiration Date 279786102015 HCLL Coding System TESR428 HCLL Product Code R2412F77 HCLL Unit Number [id number] HCLL Dispense Status Presumed Transfused_PT HCLL Blood Expiration Date 134044941233 HCLL Coding System NAHZ987 HCLL Product Code U5275S27 HCLL Unit Number [id number] HCLL Dispense Status Presumed Transfused_PT HCLL Blood Expiration Date 926387087482 HCLL Coding System OHKR071 HCLL Blood Bank Product us Leandra Og MD BLOOD BANK PRODUCT ORD ERABLES Final Result HCLL * Transfuse Platelets (10/27/2024 6:09 AM EDT) us Ben Blake MD NURSING TREATMENT ORDERABLES - BLOOD ADMIN Final Result * (ABNORMAL) Arterial Blood Gas Panel (10/27/2024 6:09 AM EDT) O2Sat (ABGP) 100 10/27/2024 6:17 AM EDT [facility] pH (ABGP) 7.30(L) 7.35 - 7.45 10/27/2024 6:17 AM EDT [facility] PCO2 (ABGP) 41 35 - 45 mm Hg 10/27/2024 6:17 AM EDT [facility] PO2 (ABGP) 192(H) 80 - 100 mm Hg 10/27/2024 6:17 AM T [facility] HCO3 (ABGP) 21(L) 22 - 26 mmol/L 10/27/2024 6:17 AM T [facility] CO2 Content (ABGP) 22(L) 23 - 27 mmol/L 10/27/2024 6:17 AM T [facility] Base Excess (ABGP) -5.7(L) -2.0 - 3.0 mmol/L 10/27/2024 6:17 AM EDT [facility] Sodium (ABGP) 138 136 - 146 mEq/L 10/27/2024 6:17 AM T [facility] Potassium (ABGP) 3.3(L) 3.5 - 5.0 mEq/L 10/27/2024 6:17 AM [facility] Comment:In the event of in-v itro hemolysis, potassium results may be falsely elevated. Always interpret lab results in conjunction with clinical findings. If hemolysis is suspected, a serum sample may be collected for repeat assessment of potassium. Calcium, Free (ABGP) 5.28 4.50 - 5.30 mg/dL 10/27/2024 6:17 AM T [facility] Glucose (ABGP) 112(H) 70 - 100 mg/dL 10/27/2024 6:17 AM [facility] Comment:There is interferenc e with whole blood glucose results on this method when Hematocrit is <25% or >60%. HCT (ABGP) 20.0(L) 40.0 - 52.0 % 10/27/2024 6:17 AM T [facility] HGB (ABGP) 6.5(L) 14.0 - 18.0 g/dL 10/27/2024 6:17 AM EDT [facility] %HBO2 (ABGP) 96.8 95.0 - 98.0 % 10/27/2024 6:17 AM EDT [facility] Carboxyhgb (ABGP) 2.1 % 025 6:17 AM EDT [facility] Comment: CARBOXYHEMOGLOBIN (CO) REFERENCE RANGES: Non-Smokers: <2 % Smokers: <8 % TOXIC: >20 % Methemoglobin (ABGP) 1.0 0.0 - 1.5 % 10/27/2024 6:17 AM EDT [facility] Reduced Hemoglobin (ABGP) 0.2 0.0 - 5.0 % 10/27/2024 6:17 AM EDT [facility] Lactic Acid (ABGP) 0.4(L) 0.5 - 1.6 mmol/L 10/27/2024 6:17 AM EDT [facility] Blood, Arterial 10/27/2024 6 :09 AM EDT 10/27/2024 6:14 AM EDT Ben Blake MD LAB BLOOD ORDERABLES Final Re sult [facility] [address] [place] [address], [facility] * Transfuse Fresh Frozen Plasma (10/27/2024 [...] Monitoring Device (10/27/2024 4:46 AM EDT) Pathologist [facility] POC Glucose Monitoring Device 124(H) 70 - 100 mg/dL 10/27/2024 4:47 AM EDT [facility] Blood 10/27/2024 4:46 AM EDT 10/27/2024 4:47 AM EDT Semaj Mcnair III, MD POINT OF CARE TEST ORDERABLES Final Result [facility] [address] [id number], [facility] * Transfuse Platelets (10/27/2024 4:24 AM EDT) Ben Blake MD NURSING TREATMENT ORDERABLES - BLOOD ADMIN Final Result * Transfuse Fresh Frozen Plasma (10/27/2024 4:07 AM EDT) Ben Blake MD NURSING TREATMENT ORDERABLES - BLOOD ADMIN Final Result * Transfuse RBC (10/27/2024 3:52 AM EDT) Result [facility] Ben Blake MD NURSING TREATMENT ORDERABLES - BLOOD ADMIN Final Result * (ABNORMAL) Arterial Blood Gas Panel (10/27/2024 3:07 AM EDT) O2Sat (ABGP) 100 10/27/2024 3:21 AM EDT [facility] pH (ABGP) 7.32(L) 7.35 - 7.45 10/27/2024 3:21 AM EDT [facility] PCO2 (ABGP) 38 35 - 45 mm Hg 10/27/2024 3:21 AM EDT [facility] PO2 (ABGP) 176(H) 80 - 100 mm Hg 10/27/2024 3:21 AM EDT [facility] HCO3 (ABGP) 20(L) 22 - 26 mmol/L 10/27/2024 3:21 AM EDT [facility] CO2 Content (ABGP) 21(L) 23 - 27 mmol/L 10/27/2024 3:21 AM EDT [facility] Base Excess (ABGP) -6.0(L) -2.0 - 3.0 mmol/L 10/27/2024 3:21 AM EDT [facility] Sodium (ABGP) 138 136 - 146 mEq/L 10/27/2024 3:21 AM EDT [facility] Potassium (ABGP) 3.0(L) 3.5 - 5.0 mEq/L 10/27/2024 3:21 AM [facility] Comment:In the event of in-v itro hemolysis, potassium results may be falsely elevated. Always interpret lab results in conjunction with clinical findings. If hemolysis is suspected, a serum sample may be collected for repeat assessment of potassium. Calcium, Free (ABGP) 5.28 4.50 - 5.30 mg/dL 10/27/2024 3:21 AM EDT [facility] Glucose (ABGP) 108(H) 70 - 100 mg/dL 10/27/2024 3:21 AM T [facility] Comment:There is interferenc e with whole blood glucose results on this method when Hematocrit is <25% or >60%. HCT (ABGP) 22.0(L) 40.0 - 52.0 % 10/27/2024 3:21 AM EDT [facility] HGB (ABGP) 7.3(L) 14.0 - 18.0 g/dL 10/27/2024 3:21 AM T [facility] %HBO2 (ABGP) 97.3 95.0 - 98.0 % 10/27/2024 3:21 AM T [facility] Carboxyhgb (ABGP) 1.9 % 025 3:21 AM T [facility] Comment: CARBOXYHEMOGLOBIN (CO) REFERENCE RANGES: Non-Smokers: <2 % Smokers: <8 % TOXIC: >20 % Methemoglobin (ABGP) 0.8 0.0 - 1.5 % 10/27/2024 3:21 AM EDT [facility] Reduced Hemoglobin (ABGP) 0.0 0.0 - 5.0 % 10/27/2024 3:21 AM T [facility] Lactic Acid (ABGP) 0.3(L) 0.5 - 1.6 mmol/L 10/27/2024 3:21 AM [facility] Blood, Arterial 10/27/2024 3 :07 AM EDT 10/27/2024 3:14 AM EDT us Ben Blake MD LAB BLOOD ORDERABLES Final Re sult [facility] [address] [place] [address], [facility] * Surgical Pathology Exam (10/27/2024 2:38 AM EDT) Tissue LEFT KIDNEY STRUCTURE / Unknown 10/27/2024 2:38 AM EDT Narrative [facility] - 10/27/2024 12:00 AM EDT CASE: [id number] PATIENT: BLAIR GILBERT Clinical History: Transplant kidney with bile duct reconstruction Pre-Operative Diagnosis: Acute kidney injury superimposed on CKD Post-Operative Diagnosis: None Given Specimen(s) Submitted: A. baseline renal biopsy ; B. right lobe liver biopsy; C. left lobe liver biopsy CPT Code(s): 44908 X 1; 19249 X 2; 25359 X 4 Additional Information: FINAL DIAGNOSIS: A. [...] submitted between blue biopsy sponges in cassette [facility]-[id number] B1-B2. (NAA Mckeon/nereida) C. Received in formalin, labeled with the patient's name Blair Gilbert and left lobe liver biopsy are two green-georges tissue cores measuring 1.2 and 1.4 cm in length, each with a diameter of 0.1 cm, which are entirely submitted between blue biopsy sponges in cassette [facility]-[id number] C1-C2. (NAA Mckeon/ns) Microscopic Description: I, the attending pathologist, have personally reviewed all prosector/resident work and pathology slides to determine final diagnosis. Control Materials Reacted Appropriately. Final Diagnosis performed by CLARE FALL MD Pathologist Electronically signed 10/31/2024 01:07:09 PM The Pathologist signing this report is located at [facility], [address] [place] [address], [id number], , CLIA ID: [id number] ADDENDUM: A. Kidney, allograft, baseline, wedge biopsy: [...] Pathologist signing this report is located at [facility], [address] [place] [address], [id number], , CLIA ID: [id number] us Kemar Sahni MD PATHOLOGY/CYTOLOGY ORDERABL ES Edited Result - Final [facility] * Anaerobic culture (10/27/2024 2:15 AM EDT) Culture Result No Anaerobes Isolated in 5 Days [facility] Fluid SPECIMEN FROM KIDNEY / Unknown 10/27/2024 2:15 AM EDT 10/27/2024 4:24 AM EDT Narrative [facility] - 10/31/2024 11:43 AM EDT 1) perfusate us Semaj Mcnair III, MD MICROBIOLOGY - GENE RAL ORDERABLES Final Result [facility] [address] [facility] * Fungus culture (10/27/2024 2:15 AM EDT) Culture Result No Fungus Isolated At 4 Weeks [facility] Fluid SPECIMEN FROM KIDNEY / Unknown 10/27/2024 2:15 AM EDT 10/27/2024 4:24 AM EDT Narrative [facility] - 11/24/2024 7:52 AM EDT 1) perfusate us Semaj Mcnair III, MD MICROBIOLOGY - GENE RAL ORDERABLES Final Result Performing Organization Address [facility] Co de Phone Number [facility] [address] [facility]. [address] * Routine Culture plus Stain (10/27/2024 2:15 AM EDT) Gram Stain Result No Polymorphonuclear Leukocytes Seen [facility] Gram Stain Result No Organisms Seen; [facility] Culture Result No Growth After 3 Days [facility] Fluid SPECIMEN FROM KIDNEY / Unknown 10/27/2024 2:15 AM EDT 10/27/2024 4:24 AM EDT [facility] - 10/30/2024 9:26 AM EDT 1) perfusate us Semaj Mcnair III, MD MICROBIOLOGY - GENE RAL ORDERABLES Final Result [facility] [address] [facility] * Transfuse Platelets Transfusion Rate: Per [...] a Baseline TEG) (10/27/2024 1:51 AM EDT) [facility] Citrated Kaolin Reaction Time (TEGHEPARINASE) 10.6(H) 4.6 - 9.1 minutes 10/27/2024 2:44 AM EDT [facility] Citrated Rapid Teg Maximum Amplitude (TEGHEPARINASE) 42.3(L) 52.0 - 70.0 mm 10/27/2024 2:44 AM EDT [facility] Citrated Functional Fibrinogen Maximum Amplitude (TEGHEPARINASE) 15.0 15.0 - 32.0 mm 10/27/2024 2:44 AM EDT [facility] Citrated Kaolin W/Heparinase Reaction Time (TEGHEPARINASE) 10.5(H) 4.3 - 8.3 minutes 10/27/2024 2:44 AM EDT [facility] Citrated Kaolin K-Time (TEGHEPARINASE) 2.9(A) 0.8 - 2.1 minutes 10/27/2024 2:44 AM EDT [facility] Citrated Kaolin Angle (TEGHEPARINASE) 60.4(A) 63.0 - 78.0 degrees 10/27/2024 2:44 AM EDT [facility] Citrated Kaolin Maximum Amplitude (TEGHEPARINASE) 42.9(L) 52.0 - 69.0 mm 10/27/2024 2:44 AM EDT [facility] Citrated Functional Fibrinogen- Fibrinogen Level (TEGHEPARINASE) 273.7(L) 278.0 - 581.0 mg/dL 10/27/2024 2:44 AM EDT [facility] Whole Blood (Citrate) 10/27/2024 1:51 AM EDT 10/27/2024 2:03 AM EDT us John Pina MD LAB BLOOD ORDERABLES Final Resu lt Performing Organization Address [facility] de Phone Number [facility] [address] * (ABNORMAL) POC Glucose Monitoring Device (10/27/2024 1:50 AM EDT) POC Glucose Monitoring Device 121(H) 70 - 100 mg/dL 10/27/2024 1:51 AM EDT [facility] Blood 10/27/2024 1:50 AM EDT 10/27/2024 1:51 AM EDT us Semaj Mcnair III, MD POINT OF CARE TEST ORDERABLES Final Result Performing Organization Address [facility] de Phone Number [facility] [address] [facility]. [address] * Transfuse Cryoprecipitate Transfusion Rate: Per dept routine (10/27/2024 1:25 AM EDT) us John Pina MD NURSING TREATMENT ORDERABLES - BLOOD ADMIN Final Result Performing Organization Address [facility] de Phone Number EXTERNAL * Transfuse Cryoprecipitate Transfusion Rate: Per dept routine, 1 Units (10/27/2024 1:25 AM EDT) us John Pina MD NURSING TREATMENT ORDERABLES - BLOOD ADMIN Final Result Performing Organization Address [facility] de Phone Number EXTERNAL * (ABNORMAL) POC Glucose Monitoring Device (10/27/2024 1:21 AM EDT) POC Glucose Monitoring Device 123(H) 70 - 100 mg/dL 10/27/2024 1:22 AM EDT [facility] Blood 10/27/2024 1:21 AM EDT 10/27/2024 1:21 AM EDT Semaj Mcnair III, MD POINT OF CARE TEST ORDERABLES Final Result Performing Organization Address [facility] de Phone Number [facility] [address] * Transfuse Fresh Frozen Plasma Transfusion Rate: Per dept routine (10/27/2024 1:03 AM EDT) us John Pina MD NURSING TREATMENT ORDERABLES - BLOOD ADMIN Final Result Performing Organization Address [facility] de Phone Number EXTERNAL * Transfuse Fresh Frozen Plasma Transfusion Rate: Per dept routine, 1 Units (10/27/2024 1:03 AM EDT) us John Pina MD NURSING TREATMENT ORDERABLES - BLOOD ADMIN Final Result Performing Organization Address [facility] de Phone Number EXTERNAL * Calcium Free, Serum (10/27/2024 12:13 AM EDT) [facility] Signature Free Calcium, Ser 5.20 4.40 - 5.40 mg/dL 10/27/2024 12:37 AM EDT [facility] Comment:Free calcium levels vary inversely with pH by approximately 5% for each 0.1 unit of pH change. Assay results have been normalized to pH = 7.40. Serum 10/27/2024 12:1 3 AM EDT 10/27/2024 12:29 AM EDT Narrative [facility] - 10/27/2024 12:37 AM EDT This test has been developed and its performance characteristics determined by [facility] which is certified under the [...] ORDERABLES Final Resu lt Performing Organization Address [facility] de Phone Number [facility] [address] * (ABNORMAL) Blood Gas, Arterial, STAT (10/27/2024 12:13 AM EDT) O2 Sat, Arterial 100 10/27/2024 12:23 AM EDT [facility] FIO2 30 10/27/2024 12:23 AM EDT [facility] pH, Arterial 7.32(L) 7.35 - 7.45 10/27/2024 12:23 AM EDT [facility] pCO2, Arterial 37 35 - 45 mm Hg 10/27/2024 12:23 AM EDT [facility] pO2, Arterial 137(H) 80 - 100 mm Hg 10/27/2024 12:23 AM EDT [facility] HCO3, Arterial 20(L) 22 - 26 mmol/L 10/27/2024 12:23 AM EDT [facility] CO2 Content,Arteri al 20(L) 23 - 27 mmol/L 10/27/2024 12:23 AM EDT [facility] Base Excess, Arterial -6.4(L) -2.0 - 3.0 mmol/L 10/27/2024 12:23 AM EDT [facility] %HBO2, Arterial 96.2 95.0 - 98.0 % 10/27/2024 12:23 AM EDT [facility] Carboxyhemoglo bin, Arterial 1.9 % 10/27/2024 12:23 AM EDT [facility] Comment: CARBOXYHEMOGLOBIN (CO) REFERENCE RANGES: Non-Smokers: <2 % Smokers: <8 % TOXIC: >20 % Methemoglobin, Arterial 1.5 0.0 - 1.5 % 10/27/2024 12:23 AM EDT [facility] Reduced hemoglobin, Arterial 0.4 0.0 - 5.0 % 10/27/2024 12:23 AM EDT [facility] Blood, Arterial 10/27/2024 1 2:13 AM EDT 10/27/2024 12:18 AM EDT us John Pina MD LAB BLOOD ORDERABLES Final Resu lt [facility] [address] [place] [address], [facility] * (ABNORMAL) TEG-Bypass/ECMO/Liver HN (Factor function, Platelet/Fibrin Clot Strength w/Clot Breakdown, Heparinase In All Channels) (10/27/2024 12:13 AM EDT) Citrated Kaolin Reaction Time (TEGECMOLIVER) 9.1 4.6 - 9.1 minutes 10/27/2024 1:43 AM EDT [facility] Citrated Kaolin W/Heparinase Reaction Time (TEGECMOLIVER) 9.7(H) 4.3 - 8.3 minutes 10/27/2024 1:43 AM EDT [facility] Citrated Kaolin Maximum Amplitude (TEGECMOLIVER) <40.0(L) 52.0 - 69.0 mm 10/27/2024 1:43 AM EDT [facility] Citrated Functional Fibrinogen W/Heparinase Maximum Amplitude(TEGEC MOLIVER) 11.9(L) 15.0 - 34.0 mm 10/27/2024 1:43 AM EDT [facility] Citrated Rapid Teg W/Heparinase Maximum Amplitude (TEGECMOLIVER) 31.6(L) 53.0 - 69.0 mm 10/27/2024 1:43 AM EDT [facility] Citrated Kaolin w/Heparinase Percent Lysis (TEGECMOLIVER) 0.0 0.0 - 3.2 % 10/27/2024 1:43 AM EDT [facility] Whole Blood (Citrate) 10/27/2024 12:13 AM EDT 10/27/2024 12:18 AM EDT us Kemar Sahni MD LAB BLOOD ORDERABLES Final Result [facility] [address] * (ABNORMAL) Lactic Acid (10/27/2024 12:13 AM EDT) Lactate 0.2(L) 0.5 - 2.2 mmol/L 10/27/2024 12:59 AM EDT [facility] Plasma 10/27/2024 12:1 3 AM EDT 10/27/2024 12:31 AM EDT Kemar Sahni MD LAB BLOOD ORDERABLES Final Result [facility] [address] [facility]. [address] * Magnesium (10/27/2024 12:13 AM EDT) Magnesium 1.8 1.5 - 2.5 mg/dL 10/27/2024 12:52 AM EDT [facility] Plasma 10/27/2024 12:1 3 AM EDT 10/27/2024 12:29 AM EDT Kemar Sahni MD LAB BLOOD ORDERABLES Final Result Performing Organization Address [facility] de Phone Number [facility] [address] [facility] * (ABNORMAL) Hepatic Function Panel (10/27/2024 12:13 AM EDT) Total Bilirubin 1.6(H) 0.0 - 1.5 mg/dL 10/27/2024 12:52 AM EDT [facility] Bilirubin, Direct 1.17(H) 0.00 - 0.40 mg/dL 10/27/2024 12:52 AM EDT [facility] AST 157(H) 13 - 39 U/L 10/27/2024 12:52 AM EDT [facility] ALT 261(H) 7 - 52 U/L 10/27/2024 12:52 AM EDT [facility] Alkaline Phosphatase 26(L) 36 - 125 U/L 10/27/2024 12:52 AM EDT [facility] Total Protein 3.8(L) 6.4 - 8.9 g/dL 10/27/2024 12:52 AM EDT [facility] Albumin 2.8(L) 3.5 - 5.7 g/dL 10/27/2024 12:52 AM EDT [facility] Bilirubin, Indirect 0.43 0.00 - 1.10 mg/dL 10/27/2024 12:52 AM EDT [facility] Plasma 10/27/2024 12:1 3 AM EDT 10/27/2024 12:29 AM EDT Kemar Sahni MD LAB BLOOD ORDERABLES Final Result Performing Organization Address [facility] de Phone Number [facility] [address] [facility] * (ABNORMAL) Protime-INR (10/27/2024 12:13 AM EDT) Protime 18.6(H) 12.1 - 15.1 seconds 10/27/2024 12:43 AM EDT [facility] INR 1.5(H) 0.9 - 1.1 10/27/2024 12:43 AM EDT [facility] Comment: RECOMMENDED THERAPEUTIC RANGES USING INR : Stable oral anticoagulant therapy: 2.0 - 3.0 Mechanical prosthetic heart valve: 2.5 - 3.5 Recurrent acute myocardial infarction: 2.5 - 3.5 Plasma 10/27/2024 12:1 3 AM EDT 10/27/2024 12:29 AM EDT Kemar Sahni MD LAB BLOOD ORDERABLES Final Result Performing Organization Address [facility] de Phone Number [facility] [id number] [facility]. [address] * (ABNORMAL) CBC (10/27/2024 12:13 AM EDT) WBC 5.0 3.8 - 10.8 10E3/uL 10/27/2024 12:59 AM EDT [facility] RBC 2.70(L) 4.20 - 5.80 10E6/uL 10/27/2024 12:59 AM EDT [facility] Hemoglobin 8.5(L) 13.2 - 17.1 g/dL 10/27/2024 12:59 AM EDT [facility] Hematocrit 23.9(L) 38.5 - 50.0 % 10/27/2024 12:59 AM EDT [facility] MCV 88.5 80.0 - 100.0 fL 10/27/2024 12:59 AM EDT [facility] MCH 31.5 27.0 - 33.0 pg 10/27/2024 12:59 AM EDT [facility] MCHC 35.6 32.0 - 36.0 g/dL 10/27/2024 12:59 AM EDT [facility] RDW 20.6(H) 11.0 - 15.0 % 10/27/2024 12:59 AM EDT [facility] Platelets 35(L) 140 - 400 10E3/uL 10/27/2024 12:59 AM EDT [facility] Comment: CNV Specimen checked for clots. None detected. MPV 7.6 7.5 - 11.5 fL 10/27/2024 12:59 AM EDT [facility] Whole Blood 10/27/2024 12:1 3 AM EDT 10/27/2024 12:29 AM EDT Kemar Sahni MD LAB BLOOD ORDERABLES Final Result [facility] [address] * (ABNORMAL) Renal Function Panel w/EGFR (10/27/2024 12:13 AM EDT) Sodium 141 133 - 146 mmol/L 10/27/2024 12:52 AM EDT [facility] Potassium 3.2(L) 3.5 - 5.3 mmol/L 10/27/2024 12:52 AM EDT [facility] Chloride 109 98 - 110 mmol/L 10/27/2024 12:52 AM EDT [facility] CO2 21 21 - 33 mmol/L 10/27/2024 12:52 AM EDT [facility] Anion Gap 11 3 - 16 mmol/L 10/27/2024 12:52 AM EDT [facility] BUN 64(H) 7 - 25 mg/dL 10/27/2024 12:52 AM EDT [facility] Creatinine 2.58(H) 0.60 - 1.30 mg/dL 10/27/2024 12:52 AM EDT [facility] Glucose 126(H) 70 - 100 mg/dL 10/27/2024 12:52 AM EDT [facility] Calcium 8.9 8.6 - 10.3 mg/dL 10/27/2024 12:52 AM EDT [facility] Phosphorus 5.3(H) 2.1 - 4.7 mg/dL 10/27/2024 12:52 AM EDT [facility] Albumin 2.8(L) 3.5 - 5.7 g/dL 10/27/2024 12:52 AM EDT [facility] Osmolality, Calculated 312(H) 278 - 305 mOsm/kg 10/27/2024 12:52 AM EDT [facility] EGFR 31 10/27/2024 12:52 AM EDT [facility] Comment:As of 2021, the estimated [...] Sahni MD LAB BLOOD ORDERABLES Final Result [facility] [address] [place], [place] [address] * (ABNORMAL) POC Glucose Monitoring Device (10/27/2024 12:08 AM EDT) POC Glucose Monitoring Device 121(H) 70 - 100 mg/dL 10/27/2024 12:08 AM EDT [facility] Blood 10/27/2024 12:0 8 AM EDT 10/27/2024 12:08 AM EDT us Semaj Mcnair III, MD POINT OF CARE TEST ORDERABLES Final Result Performing Organization Address [facility] de Phone Number [facility] [address] * (ABNORMAL) POC Glucose Monitoring Device (10/26/2024 11:15 PM EDT) POC Glucose Monitoring Device 120(H) 70 - 100 mg/dL 10/26/2024 11:15 PM EDT [facility] Blood 10/26/2024 11:1 5 PM EDT 10/26/2024 11:15 PM EDT us Semaj Mcnair III, MD POINT OF CARE TEST ORDERABLES Final Result Performing Organization Address [facility] de Phone Number [facility] [address] * (ABNORMAL) TEG-Bypass/ECMO/Liver HN (Factor function, Platelet/Fibrin Clot Strength w/Clot Breakdown, Heparinase In All Channels) (10/26/2024 10:36 PM EDT) Citrated Kaolin Reaction Time (TEGECMOLIVER) 10.0(H) 4.6 - 9.1 minutes 10/26/2024 11:53 PM EDT [facility] Citrated Kaolin W/Heparinase Reaction Time (TEGECMOLIVER) 10.2(H) 4.3 - 8.3 minutes 10/26/2024 11:53 PM EDT [facility] Citrated Kaolin Maximum Amplitude (TEGECMOLIVER) <40.0(L) 52.0 - 69.0 mm 10/26/2024 11:53 PM EDT [facility] Citrated Functional Fibrinogen W/Heparinase Maximum Amplitude(TEGEC MOLIVER) 11.3(L) 15.0 - 34.0 mm 10/26/2024 11:53 PM EDT [facility] Citrated Rapid Teg W/Heparinase Maximum Amplitude (TEGECMOLIVER) 41.8(L) 53.0 - 69.0 mm 10/26/2024 11:53 PM EDT [facility] Citrated Kaolin w/Heparinase Percent Lysis (TEGECMOLIVER) 0.0 0.0 - 3.2 % 10/26/2024 11:53 PM EDT [facility] Whole Blood (Citrate) 10/26/2024 10:36 PM EDT 10/26/2024 10:43 PM EDT Kemar Sahni MD LAB BLOOD ORDERABLES Final Result Performing Organization Address City/[facility]/ZIP Co de Phone Number [facility] [address] [facility]. [address] * (ABNORMAL) POC Glucose Monitoring Device (10/26/2024 10:14 PM EDT) POC Glucose Monitoring Device 124(H) 70 - 100 mg/dL 10/26/2024 11:11 PM EDT [facility] Blood 10/26/2024 10:1 4 PM EDT 10/26/2024 11:11 PM EDT Semaj Mcnair III, MD POINT OF CARE TEST ORDERABLES Final Result Performing Organization Address City/[facility]/ZIP Co de Phone Number [facility] [address] [facility]. [address] * (ABNORMAL) POC Glucose Monitoring Device (10/26/2024 9:16 PM EDT) POC Glucose Monitoring Device 119(H) 70 - 100 mg/dL 10/26/2024 9:18 PM EDT [facility] Blood 10/26/2024 9:16 PM EDT 10/26/2024 9:18 PM EDT us Semaj cMnair III, MD POINT OF CARE TEST ORDERABLES Final Result [facility] [address] * (ABNORMAL) POC Glucose Monitoring Device (10/26/2024 8:05 PM EDT) POC Glucose Monitoring Device 113(H) 70 - 100 mg/dL 10/26/2024 8:06 PM EDT [facility] Blood 10/26/2024 8:05 PM EDT 10/26/2024 8:06 PM EDT Semaj Mcnair III, MD POINT OF CARE TEST ORDERABLES Final Result Performing Organization Address [facility] Co de Phone Number [facility] [address] * (ABNORMAL) POC Glucose Monitoring Device (10/26/2024 7:02 PM EDT) POC Glucose Monitoring Device 111(H) 70 - 100 mg/dL 10/26/2024 7:03 PM EDT [facility] Blood 10/26/2024 7:02 PM EDT 10/26/2024 7:03 PM EDT Semaj Mcnair III, MD POINT OF CARE TEST ORDERABLES Final Result Performing Organization Address [facility] de Phone Number [facility] [address] [facility]. [address] * Transfuse Cryoprecipitate Transfusion Rate: Per dept routine (10/26/2024 6:39 PM EDT) John Pina MD NURSING TREATMENT ORDERABLES - BLOOD ADMIN Final Result Performing Organization Address City/[facility] Co de Phone Number EXTERNAL * Transfuse Cryoprecipitate Transfusion Rate: Per dept routine, 1 Units (10/26/2024 6:39 PM EDT) John Pina MD NURSING TREATMENT ORDERABLES - BLOOD ADMIN Final Result Performing Organization Address City/[facility]/ZIP Co de Phone Number EXTERNAL * (ABNORMAL) POC Glucose Monitoring Device (10/26/2024 6:33 PM EDT) POC Glucose Monitoring Device 110(H) 70 - 100 mg/dL 10/26/2024 6:34 PM EDT [facility] Blood 10/26/2024 6:33 PM EDT 10/26/2024 6:34 PM EDT us Semaj Mcnair III, MD POINT OF CARE TEST ORDERABLES Final Result [facility] [address] [facility]. [address] * Transfuse Cryoprecipitate Transfusion Rate: Per dept routine (10/26/2024 6:22 PM EDT) us John Pina MD NURSING TREATMENT ORDERABLES - BLOOD ADMIN Final Result Performing Organization Address City/[facility]/ZIP Co de Phone Number EXTERNAL * Transfuse Cryoprecipitate Transfusion Rate: Per dept routine, 1 Units (10/26/2024 6:22 PM EDT) us John Pina MD NURSING TREATMENT ORDERABLES - BLOOD ADMIN Final Result Performing Organization Address City/[facility] Co de Phone Number EXTERNAL * (ABNORMAL) POC Glucose Monitoring Device (10/26/2024 6:17 PM EDT) POC Glucose Monitoring Device 104(H) 70 - 100 mg/dL 10/26/2024 6:18 PM EDT [facility] Blood 10/26/2024 6:17 PM EDT 10/26/2024 6:18 PM EDT us Semaj Mcnair III, MD POINT OF CARE TEST ORDERABLES Final Result Performing Organization Address City/[facility] Co de Phone Number [facility] [address] * (ABNORMAL) POC Glucose Monitoring Device (10/26/2024 4:58 PM EDT) POC Glucose Monitoring Device 115(H) 70 - 100 mg/dL 10/26/2024 4:59 PM EDT [facility] Blood 10/26/2024 4:58 PM EDT 10/26/2024 4:58 PM EDT Semaj Mcnair III, MD POINT OF CARE TEST ORDERABLES Final Result Performing Organization Address [facility] Co de Phone Number [facility] [address] [place] [address] * (ABNORMAL) Calcium Free, Serum (10/26/2024 4:42 PM EDT) Free Calcium, Ser 5.67(H) 4.40 - 5.40 mg/dL 10/26/2024 4:55 PM EDT [facility] Comment:Free calcium levels vary inversely with pH by approximately 5% for each 0.1 unit of pH change. Assay results have been normalized to pH = 7.40. Serum 10/26/2024 4:42 PM EDT 10/26/2024 4:47 PM EDT Narrative [facility] - 10/26/2024 4:55 PM EDT This test has been developed and its performance characteristics determined by [facility] which is certified under the [...] City/[facility]/ZIP Co de Phone Number [facility] [address] * Repeat Crossmatch (Recipient Sample) (10/26/2024 4:42 PM EDT) Repeat Cx - Recipient The request and specimen(s) for this test have been received and transported to the [facility] at [address] [place] [address]. The [facility] will report results directly to the client. 10/26/2024 4:49 PM EDT [facility] Whole Blood 10/26/2024 4:42 PM EDT 10/26/2024 4:49 PM EDT Narrative [facility] - 10/26/2024 4:49 PM EDT To be sent to [facility] for Donor UNOS#[id number] cross match with Blair Gilbert Sveta Judge MD LAB BLOOD ORDERABLES Final Resu lt [facility] [address] * (ABNORMAL) Lactic Acid (10/26/2024 4:42 PM EDT) Lactate 0.3(L) 0.5 - 2.2 mmol/L 10/26/2024 5:19 PM EDT [facility] Plasma 10/26/2024 4:42 PM EDT 10/26/2024 4:47 PM EDT Kemar Sahni MD LAB BLOOD ORDERABLES Final Result Performing Organization Address City/[facility]/ZIP Co de Phone Number [facility] [address] [facility]. [address] * Magnesium (10/26/2024 4:42 PM EDT) Magnesium 2.0 1.5 - 2.5 mg/dL 10/26/2024 5:24 PM EDT [facility] Plasma 10/26/2024 4:42 PM EDT 10/26/2024 4:47 PM EDT Kemar Sahni MD LAB BLOOD ORDERABLES Final Result [facility] [address] * (ABNORMAL) Hepatic Function Panel (10/26/2024 4:42 PM EDT) Total Bilirubin 2.3(H) 0.0 - 1.5 mg/dL 10/26/2024 5:24 PM EDT [facility] Bilirubin, Direct 1.85(H) 0.00 - 0.40 mg/dL 10/26/2024 5:24 PM EDT [facility] AST 374(H) 13 - 39 U/L 10/26/2024 5:24 PM EDT [facility] ALT 458(H) 7 - 52 U/L 10/26/2024 5:24 PM EDT [facility] Alkaline Phosphatase 39 36 - 125 U/L 10/26/2024 5:24 PM EDT [facility] Total Protein 3.8(L) 6.4 - 8.9 g/dL 10/26/2024 5:24 PM EDT [facility] Albumin 3.0(L) 3.5 - 5.7 g/dL 10/26/2024 5:24 PM EDT [facility] Bilirubin, Indirect 0.45 0.00 - 1.10 mg/dL 10/26/2024 5:24 PM EDT [facility] Plasma 10/26/2024 4:42 PM EDT 10/26/2024 4:47 PM EDT Kemar Sahni MD LAB BLOOD ORDERABLES Final Result Performing Organization Address City/State/[facility] Co de Phone Number [facility] [address] * (ABNORMAL) Protime-INR (10/26/2024 4:42 PM EDT) Protime 20.3(H) 12.1 - 15.1 seconds 10/26/2024 5:12 PM EDT [facility] INR 1.7(H) 0.9 - 1.1 10/26/2024 5:12 PM EDT [facility] Comment: RECOMMENDED THERAPEUTIC RANGES USING INR : Stable oral anticoagulant therapy: 2.0 - 3.0 Mechanical prosthetic heart valve: 2.5 - 3.5 Recurrent acute myocardial infarction: 2.5 - 3.5 Plasma 10/26/2024 4:42 PM EDT 10/26/2024 4:47 PM EDT Kemar Sahni MD LAB BLOOD ORDERABLES Final Result [facility] [address] [place] [address], [facility] * (ABNORMAL) CBC (10/26/2024 4:42 PM EDT) WBC 10.0 3.8 - 10.8 10E3/uL 10/26/2024 5:00 PM EDT [facility] RBC 3.44(L) 4.20 - 5.80 10E6/uL 10/26/2024 5:00 PM EDT [facility] Hemoglobin 10.5(L) 13.2 - 17.1 g/dL 10/26/2024 5:00 PM EDT [facility] Hematocrit 30.2(L) 38.5 - 50.0 % 10/26/2024 5:00 PM EDT [facility] MCV 87.7 80.0 - 100.0 fL 10/26/2024 5:00 PM EDT [facility] MCH 30.6 27.0 - 33.0 pg 10/26/2024 5:00 PM EDT [facility] MCHC 34.8 32.0 - 36.0 g/dL 10/26/2024 5:00 PM EDT [facility] RDW 20.1(H) 11.0 - 15.0 % 10/26/2024 5:00 PM EDT [facility] Platelets 48(L) 140 - 400 10E3/uL 10/26/2024 5:00 PM EDT [facility] Comment:Specimen checked for clots. None detected. MPV 7.9 7.5 - 11.5 fL 10/26/2024 5:00 PM EDT [facility] Whole Blood 10/26/2024 4:42 PM EDT 10/26/2024 4:47 PM EDT Kemar Sahni MD LAB BLOOD ORDERABLES Final Result [facility] [address] [place] [address], [facility] * (ABNORMAL) Renal Function Panel w/EGFR (10/26/2024 4:42 PM EDT) Sodium 142 133 - 146 mmol/L 10/26/2024 5:24 PM EDT [facility] Potassium 3.3(L) 3.5 - 5.3 mmol/L 10/26/2024 5:24 PM EDT [facility] Chloride 109 98 - 110 mmol/L 10/26/2024 5:24 PM EDT [facility] CO2 23 21 - 33 mmol/L 10/26/2024 5:24 PM EDT [facility] Anion Gap 10 3 - 16 mmol/L 10/26/2024 5:24 PM EDT [facility] BUN 63(H) 7 - 25 mg/dL 10/26/2024 5:24 PM EDT [facility] Creatinine 2.85(H) 0.60 - 1.30 mg/dL 10/26/2024 5:24 PM EDT [facility] Glucose 127(H) 70 - 100 mg/dL 10/26/2024 5:24 PM EDT [facility] Calcium 8.9 8.6 - 10.3 mg/dL 10/26/2024 5:24 PM EDT [facility] Phosphorus 4.4 2.1 - 4.7 mg/dL 10/26/2024 5:24 PM EDT [facility] Albumin 3.0(L) 3.5 - 5.7 g/dL 10/26/2024 5:24 PM EDT [facility] Osmolality, Calculated 314(H) 278 - 305 mOsm/kg 10/26/2024 5:24 PM EDT [facility] EGFR 28 10/26/2024 5:24 PM EDT [facility] Comment:As of 2021, the estimated [...] City/[facility]/ZIP Co de Phone Number [facility] [address] [facility]. [address] * (ABNORMAL) POC Glucose Monitoring Device (10/26/2024 3:54 PM EDT) POC Glucose Monitoring Device 126(H) 70 - 100 mg/dL 10/26/2024 3:55 PM EDT [facility] Blood 10/26/2024 3:54 PM EDT 10/26/2024 3:55 PM EDT Semaj Mcnair III, MD POINT OF CARE TEST ORDERABLES Final Result Performing Organization Address [facility] Co de Phone Number [facility] [address] [facility]. [address] * (ABNORMAL) POC Glucose Monitoring Device (10/26/2024 3:06 PM EDT) POC Glucose Monitoring Device 144(H) 70 - 100 mg/dL 10/26/2024 3:14 PM EDT [facility] Blood 10/26/2024 3:06 PM EDT 10/26/2024 3:13 PM EDT Semaj Mcnair III, MD POINT OF CARE TEST ORDERABLES Final Result Performing Organization Address City/[facility]/ZIP Co de Phone Number [facility] [address] [facility]. [address] * (ABNORMAL) TEG-Bypass/ECMO/Liver HN (Factor function, Platelet/Fibrin Clot Strength w/Clot Breakdown, Heparinase In All Channels) (10/26/2024 3:03 PM EDT) [facility] Citrated Kaolin Reaction Time (TEGECMOLIVER) 8.2 4.6 - 9.1 minutes 10/26/2024 4:43 PM EDT [facility] Citrated Kaolin W/Heparinase Reaction Time (TEGECMOLIVER) 8.2 4.3 - 8.3 minutes 10/26/2024 4:43 PM EDT [facility] Citrated Kaolin Maximum Amplitude (TEGECMOLIVER) 41.7(L) 52.0 - 69.0 mm 10/26/2024 4:43 PM EDT [facility] Citrated Functional Fibrinogen W/Heparinase Maximum Amplitude(TEGEC MOLIVER) 11.4(L) 15.0 - 34.0 mm 10/26/2024 4:43 PM EDT [facility] Citrated Rapid Teg W/Heparinase Maximum Amplitude (TEGECMOLIVER) 38.6(L) 53.0 - 69.0 mm 10/26/2024 4:43 PM EDT [facility] Citrated Kaolin w/Heparinase Percent Lysis (TEGECMOLIVER) 0.0 0.0 - 3.2 % 10/26/2024 4:43 PM EDT [facility] Whole Blood (Citrate) 10/26/2024 3:03 PM EDT 10/26/2024 3:10 PM EDT us Jani Mooney MD LAB BLOOD ORDERABLES Final Resul t [facility] [address] * ECG 12 lead (MUSE) (10/26/2024 2:19 PM EDT) 10/26/2024 2:19 PM EDT Narrative MUSE - 10/27/2024 10:09 AM EDT Ventricular Rate: 105 BPM Atrial Rate: 105 BPM P-R Interval: 128 ms QRS Duration: 94 ms QT: 474 ms QTc: 626 ms R [place]: -37 degrees T [place]: 35 degrees Diagnosis Line: Critical Test Result: Long QTc ^ SINUS TACHYCARDIA ^ LEFT AXIS DEVIATION, LEFT ANTERIOR HEMIBLOCK ^ PROLONGED QT ^ ABNORMAL ECG ^ ^ Confirmed by MD HA, NOAHYAR ([id number]) on 10/27/2024 10:09:25 AM Quinten Best MD ECG ORDERABLES Final Result Performing Organization Address [facility] Co de Phone Number MUSE * (ABNORMAL) POC Glucose Monitoring Device (10/26/2024 2:00 PM EDT) POC Glucose Monitoring Device 183(H) 70 - 100 mg/dL 10/26/2024 2:01 PM EDT [facility] Blood 10/26/2024 2:00 PM EDT 10/26/2024 2:01 PM EDT Semaj Mcnair III, MD POINT OF CARE TEST ORDERABLES Final Result Performing Organization Address [facility] de Phone Number [facility] [address] * (ABNORMAL) POC Glucose Monitoring Device (10/26/2024 1:05 PM EDT) POC Glucose Monitoring Device 212(H) 70 - 100 mg/dL 10/26/2024 1:06 PM EDT [facility] Blood 10/26/2024 1:05 PM EDT 10/26/2024 1:06 PM EDT Semaj Mcnair III, MD POINT OF CARE TEST ORDERABLES Final Result Performing Organization Address [facility] Co de Phone Number [facility] [address] * Transfuse Cryoprecipitate Has consent been obtained? Yes; Transfusion Rate: Per dept routine (10/26/2024 12:25 PM EDT) Result [facility] Shay Sifuentes MD NURSING TREATMENT ORDERABLES - BLOOD ADMIN Final Result Performing Organization Address [facility] de Phone Number EXTERNAL * Transfuse Cryoprecipitate Has consent been obtained? Yes; Transfusion Rate: Per dept routine, 1 Units (10/26/2024 12:25 PM EDT) Shay Sifuentes MD NURSING TREATMENT ORDERABLES - BLOOD ADMIN Final Result Performing Organization Address [facility] de Phone Number EXTERNAL * (ABNORMAL) POC Glucose Monitoring Device (10/26/2024 12:06 PM EDT) POC Glucose Monitoring Device 226(H) 70 - 100 mg/dL 10/26/2024 12:07 PM EDT [facility] Blood 10/26/2024 12:0 6 PM EDT 10/26/2024 12:07 PM EDT Semaj Mcnair III, MD POINT OF CARE TEST ORDERABLES Final Result Performing Organization Address [facility] de Phone Number [facility] [address] * Transfuse Cryoprecipitate Transfusion Rate: Per dept routine (10/26/2024 12:01 PM EDT) Result [facility] John Pina MD NURSING TREATMENT ORDERABLES - BLOOD ADMIN Final Result Performing Organization Address [facility] de Phone Number EXTERNAL * Transfuse Cryoprecipitate Transfusion Rate: Per dept routine, 1 Units (10/26/2024 12:01 PM EDT) John Pina MD NURSING TREATMENT ORDERABLES - BLOOD ADMIN Final Result Performing Organization Address [facility] de Phone Number EXTERNAL * Lactic Acid (10/26/2024 10:48 AM EDT) Lactate 1.2 0.5 - 2.2 mmol/L 10/26/2024 11:27 AM EDT [facility] Plasma 10/26/2024 10:4 8 AM EDT 10/26/2024 10:53 AM EDT Kemar Sahni MD LAB BLOOD ORDERABLES Final Result [facility] [address] [facility]. [address] * Magnesium (10/26/2024 10:48 AM EDT) Magnesium 2.0 1.5 - 2.5 mg/dL 10/26/2024 11:26 AM EDT [facility] Plasma 10/26/2024 10:4 8 AM EDT 10/26/2024 10:53 AM EDT Kemar Sahni MD LAB BLOOD ORDERABLES Final Result Performing Organization Address City/[facility] Co de Phone Number [facility] [address] [facility]. [address] * (ABNORMAL) Hepatic Function Panel (10/26/2024 10:48 AM EDT) Total Bilirubin 5.9(H) 0.0 - 1.5 mg/dL 10/26/2024 11:26 AM EDT [facility] Bilirubin, Direct 4.74(H) 0.00 - 0.40 mg/dL 10/26/2024 11:26 AM EDT [facility] AST 872(H) 13 - 39 U/L 10/26/2024 11:26 AM EDT [facility] ALT 736(H) 7 - 52 U/L 10/26/2024 11:26 AM EDT [facility] Alkaline Phosphatase 56 36 - 125 U/L 10/26/2024 11:26 AM EDT [facility] Total Protein 3.5(L) 6.4 - 8.9 g/dL 10/26/2024 11:26 AM EDT [facility] Albumin 2.5(L) 3.5 - 5.7 g/dL 10/26/2024 11:26 AM EDT [facility] Bilirubin, Indirect 1.16(H) 0.00 - 1.10 mg/dL 10/26/2024 11:26 AM EDT [facility] Plasma 10/26/2024 10:4 8 AM EDT 10/26/2024 10:53 AM EDT Kemar Sahni MD LAB BLOOD ORDERABLES Final Result Performing Organization Address [facility] de Phone Number [facility] [address] [facility]. [address] * (ABNORMAL) Protime-INR (10/26/2024 10:48 AM EDT) Protime 23.0(H) 12.1 - 15.1 seconds 10/26/2024 11:26 AM EDT [facility] INR 2.0(H) 0.9 - 1.1 10/26/2024 11:26 AM EDT [facility] Comment: RECOMMENDED THERAPEUTIC RANGES USING INR : Stable oral anticoagulant therapy: 2.0 - 3.0 Mechanical prosthetic heart valve: 2.5 - 3.5 Recurrent acute myocardial infarction: 2.5 - 3.5 Plasma 10/26/2024 10:4 8 AM EDT 10/26/2024 10:53 AM EDT Kemar Sahni MD LAB BLOOD ORDERABLES Final Result Performing Organization Address [facility] de Phone Number [facility] [address] [facility]. [address] * (ABNORMAL) CBC (10/26/2024 10:48 AM EDT) WBC 17.3(H) 3.8 - 10.8 10E3/uL 10/26/2024 11:14 AM EDT [facility] RBC 4.22 4.20 - 5.80 10E6/uL 10/26/2024 11:14 AM EDT [facility] Hemoglobin 12.8(L) 13.2 - 17.1 g/dL 10/26/2024 11:14 AM EDT [facility] Hematocrit 37.2(L) 38.5 - 50.0 % 10/26/2024 11:14 AM EDT [facility] MCV 88.3 80.0 - 100.0 fL 10/26/2024 11:14 AM EDT [facility] MCH 30.4 27.0 - 33.0 pg 10/26/2024 11:14 AM EDT [facility] MCHC 34.4 32.0 - 36.0 g/dL 10/26/2024 11:14 AM EDT [facility] RDW 20.8(H) 11.0 - 15.0 % 10/26/2024 11:14 AM EDT [facility] Platelets 109(L) 140 - 400 10E3/uL 10/26/2024 11:14 AM EDT [facility] MPV 7.5 7.5 - 11.5 fL 10/26/2024 11:14 AM EDT [facility] Whole Blood 10/26/2024 10:4 8 AM EDT 10/26/2024 10:53 AM EDT us Kemar Sahni MD LAB BLOOD ORDERABLES Final Result Performing Organization Address City/State/[facility] Co de Phone Number [facility] [address] * (ABNORMAL) Blood gas, arterial (10/26/2024 10:48 AM EDT) O2 Sat, Arterial 97 10/26/2024 10:54 AM EDT [facility] FIO2 35% 10/26/2024 10:54 AM EDT [facility] pH, Arterial 7.37 7.35 - 7.45 10/26/2024 10:54 AM EDT [facility] pCO2, Arterial 36 35 - 45 mm Hg 10/26/2024 10:54 AM EDT [facility] pO2, Arterial 91 80 - 100 mm Hg 10/26/2024 10:54 AM EDT [facility] HCO3, Arterial 22 22 - 26 mmol/L 10/26/2024 10:54 AM EDT [facility] CO2 Content,Arteri al 22(L) 23 - 27 mmol/L 10/26/2024 10:54 AM EDT [facility] Base Excess, Arterial -3.9(L) -2.0 - 3.0 mmol/L 10/26/2024 10:54 AM EDT [facility] %HBO2, Arterial 94.8(L) 95.0 - 98.0 % 10/26/2024 10:54 AM EDT [facility] Carboxyhemoglo bin, Arterial 1.9 % 10/26/2024 10:54 AM EDT [facility] Comment: CARBOXYHEMOGLOBIN (CO) REFERENCE RANGES: Non-Smokers: <2 % Smokers: <8 % TOXIC: >20 % Methemoglobin, Arterial 0.7 0.0 - 1.5 % 10/26/2024 10:54 AM EDT [facility] Reduced hemoglobin, Arterial 2.5 0.0 - 5.0 % 10/26/2024 10:54 AM EDT [facility] Blood, Arterial 10/26/2024 1 0:48 AM EDT 10/26/2024 10:52 AM EDT us Shay Sifuentes MD LAB BLOOD ORDERABLES Final Resu lt [facility] [address] * (ABNORMAL) Renal Function Panel w/EGFR (10/26/2024 10:48 AM EDT) Sodium 139 133 - 146 mmol/L 10/26/2024 11:26 AM EDT [facility] Potassium 2.9(LL) 3.5 - 5.3 mmol/L 10/26/2024 11:26 AM EDT [facility] Comment:K CRITICAL VALUE WAS PREVIOUSLY CALLED Chloride 107 98 - 110 mmol/L 10/26/2024 11:26 AM EDT [facility] CO2 22 21 - 33 mmol/L 10/26/2024 11:26 AM EDT [facility] Anion Gap 10 3 - 16 mmol/L 10/26/2024 11:26 AM EDT [facility] BUN 61(H) 7 - 25 mg/dL 10/26/2024 11:26 AM EDT [facility] Creatinine 2.78(H) 0.60 - 1.30 mg/dL 10/26/2024 11:26 AM EDT [facility] Glucose 253(H) 70 - 100 mg/dL 10/26/2024 11:26 AM EDT [facility] Calcium 8.8 8.6 - 10.3 mg/dL 10/26/2024 11:26 AM EDT [facility] Phosphorus 4.1 2.1 - 4.7 mg/dL 10/26/2024 11:26 AM EDT [facility] Albumin 2.5(L) 3.5 - 5.7 g/dL 10/26/2024 11:26 AM EDT [facility] Osmolality, Calculated 314(H) 278 - 305 mOsm/kg 10/26/2024 11:26 AM EDT [facility] EGFR 28 10/26/2024 11:26 AM EDT [facility] Comment:As of 2021, the estimated [...] Sahni MD LAB BLOOD ORDERABLES Final Result [facility] [address] [id number], [place] [facility] * (ABNORMAL) POC Glucose Monitoring Device (10/26/2024 10:47 AM EDT) POC Glucose Monitoring Device 234(H) 70 - 100 mg/dL 10/26/2024 10:48 AM EDT [facility] Blood 10/26/2024 10:4 7 AM EDT 10/26/2024 10:48 AM EDT us Semaj Mncair III, MD POINT OF CARE TEST ORDERABLES Final Result Performing Organization Address [facility] Co de Phone Number [facility] [address] [place] [address] * CARISA Rhythm Strip - Scan (10/26/2024 10:45 AM EDT) us Scanning Uchhim SCAN DOCS - NO RESULTS Final Res ult * (ABNORMAL) POC Glucose Monitoring Device (10/26/2024 10:08 AM EDT) POC Glucose Monitoring Device 235(H) 70 - 100 mg/dL 10/26/2024 10:09 AM EDT [facility] Blood 10/26/2024 10:0 8 AM EDT 10/26/2024 10:09 AM EDT Semaj Mcnair III, MD POINT OF CARE TEST ORDERABLES Final Result Performing Organization Address [facility] Co de Phone Number [facility] [address] [facility]. [address] * (ABNORMAL) POC Glucose Monitoring Device (10/26/2024 8:57 AM EDT) POC Glucose Monitoring Device 232(H) 70 - 100 mg/dL 10/26/2024 8:59 AM EDT [facility] Blood 10/26/2024 8:57 AM EDT 10/26/2024 8:58 AM EDT us Semaj Mcnair III, MD POINT OF CARE TEST ORDERABLES Final Result Performing Organization Address City/[facility] Co de Phone Number [facility] [address] * ECG 12 lead (MUSE) (10/26/2024 8:16 AM EDT) 10/26/2024 8:16 AM EDT Narrative MUSE - 10/27/2024 10:09 AM EDT Ventricular Rate: 112 BPM QRS Duration: 96 ms QT: 452 ms QTc: 616 ms R [place]: -41 degrees T [place]: 40 degrees Diagnosis Line: Critical Test Result: Long QTc ^ SINUS TACHYCARDIA OCCASIONAL PREMATURE VENTRICULAR COMPLEXES ^ LEFT AXIS DEVIATION, LEFT ANTERIOR HEMIBLOCK ^ PROLONGED QT ^ ABNORMAL ECG ^ ^ Confirmed by MD HA, [facility] ([id number]) on 10/27/2024 10:09:18 AM [...] Glucose Monitoring Device (10/26/2024 7:59 AM EDT) [facility] POC Glucose Monitoring Device 229(H) 70 - 100 mg/dL 10/26/2024 8:01 AM EDT [facility] Blood 10/26/2024 7:59 AM EDT 10/26/2024 8:00 AM EDT Semaj Mcnair III, MD POINT OF CARE TEST ORDERABLES Final Result [facility] [address] * (ABNORMAL) TEG-Bypass/ECMO/Liver HN (Factor function, Platelet/Fibrin Clot Strength w/Clot Breakdown, Heparinase In All Channels) (10/26/2024 7:59 AM EDT) Citrated Kaolin Reaction Time (TEGECMOLIVER) 8.2 4.6 - 9.1 minutes 10/26/2024 10:36 AM EDT [facility] Citrated Kaolin W/Heparinase Reaction Time (TEGECMOLIVER) 8.1 4.3 - 8.3 minutes 10/26/2024 10:36 AM EDT [facility] Citrated Kaolin Maximum Amplitude (TEGECMOLIVER) 46.8(L) 52.0 - 69.0 mm 10/26/2024 10:36 AM EDT [facility] Citrated Functional Fibrinogen W/Heparinase Maximum Amplitude(TEGEC MOLIVER) 10.5(L) 15.0 - 34.0 mm 10/26/2024 10:36 AM EDT [facility] Citrated Rapid Teg W/Heparinase Maximum Amplitude (TEGECMOLIVER) 45.5(L) 53.0 - 69.0 mm 10/26/2024 10:36 AM EDT [facility] Citrated Kaolin w/Heparinase Percent Lysis (TEGECMOLIVER) 0.0 0.0 - 3.2 % 10/26/2024 10:36 AM EDT [facility] Whole Blood (Citrate) 10/26/2024 7:59 AM EDT 10/26/2024 8:05 AM EDT Shay Sifuentes MD LAB BLOOD ORDERABLES Final Resu lt Performing Organization Address [facility]/ZIP Co de Phone Number [facility] [address] [facility]. [address] * (ABNORMAL) POC Glucose Monitoring Device (10/26/2024 6:12 AM EDT) POC Glucose Monitoring Device 196(H) 70 - 100 mg/dL 10/26/2024 6:13 AM EDT [facility] Blood 10/26/2024 6:12 AM EDT 10/26/2024 6:13 AM EDT Semaj Mcnair III, MD POINT OF CARE TEST ORDERABLES Final Result Performing Organization Address [facility] Co de Phone Number [facility] [address] [facility]. [address] * Lactic Acid (10/26/2024 6:10 AM EDT) Lactate 1.2 0.5 - 2.2 mmol/L 10/26/2024 6:39 AM EDT [facility] Plasma 10/26/2024 6:10 AM EDT 10/26/2024 6:19 AM EDT Sveta Judge MD LAB BLOOD ORDERABLES Final Resu lt Performing Organization Address [facility]/ZIP Co de Phone Number [facility] [address] [facility]. [address] * (ABNORMAL) Fibrinogen (10/26/2024 6:10 AM EDT) Fibrinogen 160(L) 218 - 406 mg/dL 10/26/2024 6:41 AM EDT [facility] Plasma 10/26/2024 6:10 AM EDT 10/26/2024 6:26 AM EDT Sveta Judge MD LAB BLOOD ORDERABLES Final Resu lt Performing Organization Address [facility] Co de Phone Number [facility] [address] * (ABNORMAL) Protime-INR (10/26/2024 6:10 AM EDT) Protime 25.0(H) 12.1 - 15.1 seconds 10/26/2024 6:41 AM EDT [facility] INR 2.2(H) 0.9 - 1.1 10/26/2024 6:41 AM EDT [facility] Comment: RECOMMENDED THERAPEUTIC RANGES USING INR : Stable oral anticoagulant therapy: 2.0 - 3.0 Mechanical prosthetic heart valve: 2.5 - 3.5 Recurrent acute myocardial infarction: 2.5 - 3.5 Plasma 10/26/2024 6:10 AM EDT 10/26/2024 6:26 AM EDT Sveta Judge MD LAB BLOOD ORDERABLES Final Resu lt [facility] [address] * (ABNORMAL) Blood gas, arterial (10/26/2024 6:10 AM EDT) O2 Sat, Arterial 98 10/26/2024 6:23 AM EDT [facility] FIO2 60 10/26/2024 6:23 AM EDT [facility] pH, Arterial 7.27(L) 7.35 - 7.45 10/26/2024 6:23 AM EDT [facility] pCO2, Arterial 47(H) 35 - 45 mm Hg 10/26/2024 6:23 AM EDT [facility] pO2, Arterial 127(H) 80 - 100 mm Hg 10/26/2024 6:23 AM EDT [facility] HCO3, Arterial 21(L) 22 - 26 mmol/L 10/26/2024 6:23 AM EDT [facility] CO2 Content,Arteri al 23 23 - 27 mmol/L 10/26/2024 6:23 AM EDT [facility] Base Excess, Arterial -5.4(L) -2.0 - 3.0 mmol/L 10/26/2024 6:23 AM EDT [facility] %HBO2, Arterial 94.6(L) 95.0 - 98.0 % 10/26/2024 6:23 AM EDT [facility] Carboxyhemoglo bin, Arterial 2.0 % 10/26/2024 6:23 AM EDT [facility] Comment: CARBOXYHEMOGLOBIN (CO) REFERENCE RANGES: Non-Smokers: <2 % Smokers: <8 % TOXIC: >20 % Methemoglobin, Arterial 1.6(H) 0.0 - 1.5 % 10/26/2024 6:23 AM EDT [facility] Reduced hemoglobin, Arterial 1.8 0.0 - 5.0 % 10/26/2024 6:23 AM EDT [facility] Blood, Arterial 10/26/2024 6 :10 AM EDT 10/26/2024 6:20 AM EDT Sveta Judge MD LAB BLOOD ORDERABLES Final Resu lt [facility] [address] * Magnesium (10/26/2024 6:10 AM EDT) Magnesium 1.5 1.5 - 2.5 mg/dL 10/26/2024 7:09 AM EDT [facility] Plasma 10/26/2024 6:10 AM EDT 10/26/2024 6:23 AM EDT Sveta Judge MD LAB BLOOD ORDERABLES Final Resu lt [facility] [address] [place] [address], [facility] * (ABNORMAL) Hepatic Function Panel (10/26/2024 6:10 AM EDT) Total Bilirubin 6.2(H) 0.0 - 1.5 mg/dL 10/26/2024 7:11 AM EDT [facility] Bilirubin, Direct 5.26(H) 0.00 - 0.40 mg/dL 10/26/2024 7:11 AM EDT [facility] AST 1,071(H) 13 - 39 U/L 10/26/2024 7:11 AM EDT [facility] ALT 805(H) 7 - 52 U/L 10/26/2024 7:11 AM EDT [facility] Alkaline Phosphatase 55 36 - 125 U/L 10/26/2024 7:11 AM EDT [facility] Total Protein <3.0(L) 6.4 - 8.9 g/dL 10/26/2024 7:11 AM EDT [facility] Albumin 1.9(L) 3.5 - 5.7 g/dL 10/26/2024 7:11 AM EDT [facility] Bilirubin, Indirect 0.94 0.00 - 1.10 mg/dL 10/26/2024 7:11 AM EDT [facility] Plasma 10/26/2024 6:10 AM EDT 10/26/2024 6:23 AM EDT Sveta Judge MD LAB BLOOD ORDERABLES Final Resu lt [facility] [address] [place] [address], [facility] * (ABNORMAL) Renal Function Panel w/EGFR (10/26/2024 6:10 AM EDT) Sodium 141 133 - 146 mmol/L 10/26/2024 7:09 AM EDT [facility] Potassium 2.8(LL) 3.5 - 5.3 mmol/L 10/26/2024 7:09 AM EDT [facility] Comment:Critical value previ ously called. Chloride 106 98 - 110 mmol/L 10/26/2024 7:09 AM EDT [facility] CO2 25 21 - 33 mmol/L 10/26/2024 7:09 AM EDT [facility] Anion Gap 10 3 - 16 mmol/L 10/26/2024 7:09 AM EDT [facility] BUN 57(H) 7 - 25 mg/dL 10/26/2024 7:09 AM EDT [facility] Creatinine 2.70(H) 0.60 - 1.30 mg/dL 10/26/2024 7:09 AM EDT [facility] Glucose 210(H) 70 - 100 mg/dL 10/26/2024 7:09 AM EDT [facility] Calcium 8.7 8.6 - 10.3 mg/dL 10/26/2024 7:09 AM EDT [facility] Phosphorus 5.4(H) 2.1 - 4.7 mg/dL 10/26/2024 7:09 AM EDT [facility] Albumin 1.9(L) 3.5 - 5.7 g/dL 10/26/2024 7:11 AM EDT [facility] Osmolality, Calculated 314(H) 278 - 305 mOsm/kg 10/26/2024 7:09 AM EDT [facility] EGFR 29 10/26/2024 7:09 AM EDT [facility] Comment:As of 2021, the estimated [...] C, Talia M, Olivia DC, Emerita ND, Madleyn [place], Felicia [place], et al. A Unifying Approach for GFR Estimation: Recommendations of the NKF-ASN Task Force on Reassessing the inclusion of Race in Diagnosing Kidney Disease. Am J Kidney Dis. 2020. Plasma 10/26/2024 6:10 AM EDT 10/26/2024 6:23 AM EDT us Sveta Judge MD LAB BLOOD ORDERABLES Final Resu lt [facility] [address] [place] [id number], [facility] * (ABNORMAL) CBC (10/26/2024 6:10 AM EDT) WBC 14.8(H) 3.8 - 10.8 10E3/uL 10/26/2024 6:46 AM EDT [facility] RBC 4.04(L) 4.20 - 5.80 10E6/uL 10/26/2024 6:46 AM EDT [facility] Hemoglobin 12.7(L) 13.2 - 17.1 g/dL 10/26/2024 6:46 AM EDT [facility] Hematocrit 35.9(L) 38.5 - 50.0 % 10/26/2024 6:46 AM EDT [facility] MCV 89.0 80.0 - 100.0 fL 10/26/2024 6:46 AM EDT [facility] MCH 31.3 27.0 - 33.0 pg 10/26/2024 6:46 AM EDT [facility] MCHC 35.2 32.0 - 36.0 g/dL 10/26/2024 6:46 AM EDT [facility] RDW 19.7(H) 11.0 - 15.0 % 10/26/2024 6:46 AM EDT [facility] Platelets 107(L) 140 - 400 10E3/uL 10/26/2024 6:46 AM EDT [facility] MPV 7.4(L) 7.5 - 11.5 fL 10/26/2024 6:46 AM EDT [facility] Whole Blood 10/26/2024 6:10 AM EDT 10/26/2024 6:26 AM EDT us Sveta Judge MD LAB BLOOD ORDERABLES Final Resu lt [facility] [address] * (ABNORMAL) POC INR (10/26/2024 5:16 AM EDT) Pathologist [facility] Prothrombin Time INR, POC 2.4(H) 0.8 - 1.4 10/27/2024 6:51 AM EDT [facility] Comment: Test results may vary [...] TEST ORDERABLES Final Result Performing Organization Address [facility] Co de Phone Number [facility] [address] [facility]. [address] * POC Sample Type (10/26/2024 5:14 AM EDT) [facility] POC Sample Type Arterial 10/26/2024 5:31 AM EDT [facility] Blood, Arterial 10/26/2024 5 :14 AM EDT 10/26/2024 5:31 AM EDT us Semaj Mcnair III, MD POINT OF CARE TEST ORDERABLES Final Result Performing Organization Address [facility]/ZIP Co de Phone Number [facility] [address] [facility]. [address] * POC Anion Gap (10/26/2024 5:14 AM EDT) [facility] POC Anion Gap, Arterial 12 3 - 16 mmol/L 10/26/2024 5:31 AM EDT [facility] Blood, Arterial 10/26/2024 5 :14 AM EDT 10/26/2024 5:31 AM EDT Semaj Mcnair III, MD POINT OF CARE TEST ORDERABLES Final Result Performing Organization Address City/[facility] Co de Phone Number [facility] [address] [facility]. [address] * POC Chloride (10/26/2024 5:14 AM EDT) POC Chloride 104 98 - 110 mmol/L 10/26/2024 5:31 AM EDT [facility] Blood, Arterial 10/26/2024 5 :14 AM EDT 10/26/2024 5:31 AM EDT Semaj Mcnair III, MD POINT OF CARE TEST ORDERABLES Final Result Performing Organization Address [facility] Co de Phone Number [facility] [address] [facility]. [address] * (ABNORMAL) POC Hemoglobin (10/26/2024 5:14 AM EDT) POC Hemoglobin 9.5(L) 14.0 - 18.0 g/dL 10/26/2024 5:31 AM EDT [facility] Blood, Arterial 10/26/2024 5 :14 AM EDT 10/26/2024 5:31 AM EDT Semaj Mcnair III, MD POINT OF CARE TEST ORDERABLES Final Result Performing Organization Address City/[facility] Co de Phone Number [facility] [address] [facility]. [address] * (ABNORMAL) POC hematocrit (10/26/2024 5:14 AM EDT) POC Hematocrit 28.0(L) 40 - 52 % 10/26/2024 5:31 AM EDT [facility] Blood, Arterial 10/26/2024 5 :14 AM EDT 10/26/2024 5:31 AM EDT us Semaj [place] III, MD POINT OF CARE TEST ORDERABLES Final Result Performing Organization Address City/[facility]/ZIP Co de Phone Number [facility] [address] [facility] [address] * POC Lactate (10/26/2024 5:14 AM EDT) POC Lactate 1.76 0.50 - 2.20 mmol/L 10/26/2024 5:31 AM EDT [facility] Blood, Arterial 10/26/2024 5 :14 AM EDT 10/26/2024 5:31 AM EDT us Semaj Mcnair III, MD POINT OF CARE TEST ORDERABLES Final Result Performing Organization Address [facility] Co de Phone Number [facility] [address] [place] [address]. [address] * (ABNORMAL) POC Glucose (10/26/2024 5:14 AM EDT) POC Glucose, Arterial 183(H) 70 - 100 mg/dL 10/26/2024 5:31 AM EDT [facility] Blood, Arterial 10/26/2024 5 :14 AM EDT 10/26/2024 5:31 AM EDT us Semaj Mcnair III, MD POINT OF CARE TEST ORDERABLES Final Result [facility] [address]. [address] * (ABNORMAL) POC Ionized Calcium (10/26/2024 5:14 AM EDT) POC Ionized Calcium 5.50(H) 4.50 - 5.30 mg/dL 10/26/2024 5:31 AM EDT [facility] Blood, Arterial 10/26/2024 5 :14 AM EDT 10/26/2024 5:31 AM EDT us Semaj Mcnair III, MD POINT OF CARE TEST ORDERABLES Final Result [facility] [address] * (ABNORMAL) POC Potassium (10/26/2024 5:14 AM EDT) POC Potassium 2.8(LL) 3.5 - 5.3 mmol/L 10/26/2024 5:31 AM EDT [facility] Blood, Arterial 10/26/2024 5 :14 AM EDT 10/26/2024 5:31 AM EDT Semaj Mcnair III, MD POINT OF CARE TEST ORDERABLES Final Result Performing Organization Address [facility] Co de Phone Number [facility] [address]. [address] * POC Sodium (10/26/2024 5:14 AM EDT) POC Sodium 138 136 - 146 mmol/L 10/26/2024 5:31 AM EDT [facility] Blood, Arterial 10/26/2024 5 :14 AM EDT 10/26/2024 5:31 AM EDT us Semaj Mcnair III, MD POINT OF CARE TEST ORDERABLES Final Result Performing Organization Address City/[facility]/ZIP Co de Phone Number [facility] [address] [facility]. [address] * POC TCO2 (10/26/2024 5:14 AM EDT) POC TCO2, Arterial 23 23 - 27 mmol/L 10/26/2024 5:31 AM EDT [facility] Blood, Arterial 10/26/2024 5 :14 AM EDT 10/26/2024 5:31 AM EDT us Semaj Mcnair III, MD POINT OF CARE TEST ORDERABLES Final Result Performing Organization Address City/[facility]/ZIP Co de Phone Number [facility] [address] * (ABNORMAL) POC O2 SAT (10/26/2024 5:14 AM EDT) POC O2 Saturation, Arterial 99(H) 95 - 98 % 10/26/2024 5:31 AM EDT [facility] Blood, Arterial 10/26/2024 5 :14 AM EDT 10/26/2024 5:31 AM EDT us Semaj Mcnair III, MD POINT OF CARE TEST ORDERABLES Final Result Performing Organization Address [facility] Co de Phone Number [facility] [address] [facility]. [address] * (ABNORMAL) POC Base Excess (10/26/2024 5:14 AM EDT) POC Base Excess, Arterial -5(L) -2 - 3 mmol/L 10/26/2024 5:31 AM EDT [facility] Blood, Arterial 10/26/2024 5 :14 AM EDT 10/26/2024 5:31 AM EDT us Semaj Mcnair III, MD POINT OF CARE TEST ORDERABLES Final Result Performing Organization Address City/[facility] Co de Phone Number [facility] [address] [facility]. [address] * POC HCO3 (10/26/2024 5:14 AM EDT) POC HCO3, Arterial 22 22 - 26 mmol/L 10/26/2024 5:31 AM EDT [facility] Blood, Arterial 10/26/2024 5 :14 AM EDT 10/26/2024 5:31 AM EDT us Semaj Mcnair III, MD POINT OF CARE TEST ORDERABLES Final Result [facility] [address] * (ABNORMAL) POC PO2 (10/26/2024 5:14 AM EDT) POC pO2, Arterial 133(H) 80 - 100 mm Hg 10/26/2024 5:31 AM EDT [facility] Blood, Arterial 10/26/2024 5 :14 AM EDT 10/26/2024 5:31 AM EDT us Semaj Mcnair III, MD POINT OF CARE TEST ORDERABLES Final Result Performing Organization Address City/[facility]/ZIP Co de Phone Number [facility] [address] * POC PCO2 (10/26/2024 5:14 AM EDT) POC pCO2, Arterial 45 35 - 45 mm Hg 10/26/2024 5:31 AM EDT [facility] Blood, Arterial 10/26/2024 5 :14 AM EDT 10/26/2024 5:31 AM EDT us Semaj Mcnair III, MD POINT OF CARE TEST ORDERABLES Final Result Performing Organization Address City/[facility]/ZIP Co de Phone Number [facility] [address] * (ABNORMAL) POC pH (10/26/2024 5:14 AM EDT) POC pH, Arterial 7.29(L) 7.35 - 7.45 10/26/2024 5:31 AM EDT [facility] Blood, Arterial 10/26/2024 5 :14 AM EDT 10/26/2024 5:31 AM EDT us Semaj Mcnair III, MD POINT OF CARE TEST ORDERABLES Final Result [facility] [address] * Transfuse Cryoprecipitate (10/26/2024 4:37 AM [...] AM EDT 10/27/2024 6:51 AM EDT Result [facility] Semaj Mcnair III, MD POINT OF CARE TEST ORDERABLES Final Result [facility] [address] [facility]. [address] * POC Sample Type (10/26/2024 4:24 AM EDT) POC Sample Type Arterial 10/26/2024 5:09 AM EDT [facility] Blood, Arterial 10/26/2024 4 :24 AM EDT 10/26/2024 5:09 AM EDT Result [facility] Semaj Mcnair III, MD POINT OF CARE TEST ORDERABLES Final Result [facility] [address] * POC Anion Gap (10/26/2024 4:24 AM EDT) POC Anion Gap, Arterial 14 3 - 16 mmol/L 10/26/2024 5:09 AM EDT [facility] Blood, Arterial 10/26/2024 4 :24 AM EDT 10/26/2024 5:09 AM EDT us Semaj Mcnair III, MD POINT OF CARE TEST ORDERABLES Final Result [facility] [address] [facility]. [address] * POC Chloride (10/26/2024 4:24 AM EDT) [facility] POC Chloride 103 98 - 110 mmol/L 10/26/2024 5:09 AM EDT [facility] Blood, Arterial 10/26/2024 4 :24 AM EDT 10/26/2024 5:09 AM EDT us Semaj Mcnair III, MD POINT OF CARE TEST ORDERABLES Final Result Performing Organization Address City/[facility] Co de Phone Number [facility] [address] [facility]. [address] * (ABNORMAL) POC Hemoglobin (10/26/2024 4:24 AM EDT) [facility] POC Hemoglobin 10.3(L) 14.0 - 18.0 g/dL 10/26/2024 5:09 AM EDT [facility] Blood, Arterial 10/26/2024 4 :24 AM EDT 10/26/2024 5:09 AM EDT us Semaj Mcnair III, MD POINT OF CARE TEST ORDERABLES Final Result Performing Organization Address City/[facility]/ZIP Co de Phone Number [facility] [address] [facility]. [address] * (ABNORMAL) POC hematocrit (10/26/2024 4:24 AM EDT) POC Hematocrit 30.0(L) 40 - 52 % 10/26/2024 5:09 AM EDT [facility] Blood, Arterial 10/26/2024 4 :24 AM EDT 10/26/2024 5:09 AM EDT us Semaj Mcnair III, MD POINT OF CARE TEST ORDERABLES Final Result [facility] [address] [place] [address]. [address] * (ABNORMAL) POC Lactate (10/26/2024 4:24 AM EDT) Pathologist [facility] POC Lactate 2.43(H) 0.50 - 2.20 mmol/L 10/26/2024 5:09 AM EDT [facility] Blood, Arterial 10/26/2024 4 :24 AM EDT 10/26/2024 5:09 AM EDT us Semaj Mcnair III, MD POINT OF CARE TEST ORDERABLES Final Result Performing Organization Address City/[facility] Co de Phone Number [facility] [address] [place] [address]. [address] * (ABNORMAL) POC Glucose (10/26/2024 4:24 AM EDT) Pathologist [facility] POC Glucose, Arterial 185(H) 70 - 100 mg/dL 10/26/2024 5:09 AM EDT [facility] Blood, Arterial 10/26/2024 4 :24 AM EDT 10/26/2024 5:09 AM EDT us Semaj Mcnair III, MD POINT OF CARE TEST ORDERABLES Final Result Performing Organization Address City/[facility] Co de Phone Number [facility] [address] [facility]. [address] * POC Ionized Calcium (10/26/2024 4:24 AM EDT) POC Ionized Calcium 5.20 4.50 - 5.30 mg/dL 10/26/2024 5:09 AM EDT [facility] Blood, Arterial 10/26/2024 4 :24 AM EDT 10/26/2024 5:09 AM EDT us Semaj Mcnair III, MD POINT OF CARE TEST ORDERABLES Final Result Performing Organization Address City/[facility]/ZIP Co de Phone Number [facility] [address] [place] [address]. [address] * (ABNORMAL) POC Potassium (10/26/2024 4:24 AM EDT) [facility] POC Potassium 2.8(LL) 3.5 - 5.3 mmol/L 10/26/2024 5:09 AM EDT [facility] Blood, Arterial 10/26/2024 4 :24 AM EDT 10/26/2024 5:09 AM EDT us Semaj Mcnair III, MD POINT OF CARE TEST ORDERABLES Final Result Performing Organization Address City/[facility] Co de Phone Number [address] * POC Sodium (10/26/2024 4:24 AM EDT) [facility] POC Sodium 139 136 - 146 mmol/L 10/26/2024 5:09 AM EDT [facility] Blood, Arterial 10/26/2024 4 :24 AM EDT 10/26/2024 5:09 AM EDT us Semaj Mcnair III, MD POINT OF CARE TEST ORDERABLES Final Result Performing Organization Address City/[facility] Co de Phone Number [address] * POC TCO2 (10/26/2024 4:24 AM EDT) Pathologist [facility] POC TCO2, Arterial 23 23 - 27 mmol/L 10/26/2024 5:09 AM EDT [facility] Blood, Arterial 10/26/2024 4 :24 AM EDT 10/26/2024 5:09 AM EDT us Semaj Mcnair III, MD POINT OF CARE TEST ORDERABLES Final Result [facility] [address] * POC O2 SAT (10/26/2024 4:24 AM EDT) POC O2 Saturation, Arterial 96 95 - 98 % 10/26/2024 5:09 AM EDT [facility] Blood, Arterial 10/26/2024 4 :24 AM EDT 10/26/2024 5:09 AM EDT Semaj Mcnair III, MD POINT OF CARE TEST ORDERABLES Final Result Performing Organization Address City/[facility]/ZIP Co de Phone Number [facility] [address] * (ABNORMAL) POC Base Excess (10/26/2024 4:24 AM EDT) POC Base Excess, Arterial -5(L) -2 - 3 mmol/L 10/26/2024 5:09 AM EDT [facility] Blood, Arterial 10/26/2024 4 :24 AM EDT 10/26/2024 5:09 AM EDT Semaj Mcnair III, MD POINT OF CARE TEST ORDERABLES Final Result [facility] [address] * POC HCO3 (10/26/2024 4:24 AM EDT) POC HCO3, Arterial 22 22 - 26 mmol/L 10/26/2024 5:09 AM EDT [facility] Blood, Arterial 10/26/2024 4 :24 AM EDT 10/26/2024 5:09 AM EDT us Semaj Mcnair III, MD POINT OF CARE TEST ORDERABLES Final Result Performing Organization Address City/[facility]/ZIP Co de Phone Number [facility] [address] * POC PO2 (10/26/2024 4:24 AM EDT) POC pO2, Arterial 93 80 - 100 mm Hg 10/26/2024 5:09 AM EDT [facility] Blood, Arterial 10/26/2024 4 :24 AM EDT 10/26/2024 5:09 AM EDT us Semaj Mcnair III, MD POINT OF CARE TEST ORDERABLES Final Result Performing Organization Address [facility] Co de Phone Number [facility] [address] [facility]. [address] * POC PCO2 (10/26/2024 4:24 AM EDT) POC pCO2, Arterial 44 35 - 45 mm Hg 10/26/2024 5:09 AM EDT [facility] Blood, Arterial 10/26/2024 4 :24 AM EDT 10/26/2024 5:09 AM EDT us Semaj Mcnair III, MD POINT OF CARE TEST ORDERABLES Final Result Performing Organization Address City/[facility] Co de Phone Number [facility] [address] [facility]. [address] * (ABNORMAL) POC pH (10/26/2024 4:24 AM EDT) POC pH, Arterial 7.30(L) 7.35 - 7.45 10/26/2024 5:09 AM EDT [facility] Blood, Arterial 10/26/2024 4 :24 AM EDT 10/26/2024 5:09 AM EDT us Semaj Mcnair III, MD POINT OF CARE TEST ORDERABLES Final Result Performing Organization Address [facility] Co de Phone Number [facility] [address] [facility]. [address] * Transfuse Platelets (10/26/2024 4:14 AM EDT) Result [facility] Ben Blake MD NURSING TREATMENT [...] TEST ORDERABLES Final Result Performing Organization Address [facility] Co de Phone Number [facility] [address] [facility]. [address] * POC Sample Type (10/26/2024 3:31 AM EDT) POC Sample Type Arterial 10/26/2024 4:11 AM EDT [facility] Blood, Arterial 10/26/2024 3 :31 AM EDT 10/26/2024 4:11 AM EDT us Semaj Mcnair III, MD POINT OF CARE TEST ORDERABLES Final Result Performing Organization Address [facility]/ZIP Co de Phone Number [facility] [address] [facility]. [address] * POC Anion Gap (10/26/2024 3:31 AM EDT) POC Anion Gap, Arterial 15 3 - 16 mmol/L 10/26/2024 4:11 AM EDT [facility] Blood, Arterial 10/26/2024 3 :31 AM EDT 10/26/2024 4:11 AM EDT us Semaj Mcnair III, MD POINT OF CARE TEST ORDERABLES Final Result Performing Organization Address [facility] Co de Phone Number [facility] [address] [facility]. [address] * POC Chloride (10/26/2024 3:31 AM EDT) POC Chloride 105 98 - 110 mmol/L 10/26/2024 4:11 AM EDT [facility] Blood, Arterial 10/26/2024 3 :31 AM EDT 10/26/2024 4:11 AM EDT us Semaj Mcnair III, MD POINT OF CARE TEST ORDERABLES Final Result Performing Organization Address [facility] Co de Phone Number [facility] [address] Township[facility]za [facility]. [address] * (ABNORMAL) POC Hemoglobin (10/26/2024 3:31 AM EDT) POC Hemoglobin 9.7(L) 14.0 - 18.0 g/dL 10/26/2024 4:11 AM EDT [facility] Blood, Arterial 10/26/2024 3 :31 AM EDT 10/26/2024 4:11 AM EDT us Semaj Mcnair III, MD POINT OF CARE TEST ORDERABLES Final Result Performing Organization Address City/[facility] Co de Phone Number [facility] [address] [facility]. [address] * (ABNORMAL) POC hematocrit (10/26/2024 3:31 AM EDT) POC Hematocrit 29.0(L) 40 - 52 % 10/26/2024 4:11 AM EDT [facility] Blood, Arterial 10/26/2024 3 :31 AM EDT 10/26/2024 4:11 AM EDT us Semaj Mcnair III, MD POINT OF CARE TEST ORDERABLES Final Result Performing Organization Address [facility] de Phone Number [facility] [address] [facility]. [address] * (ABNORMAL) POC Lactate (10/26/2024 3:31 AM EDT) POC Lactate 3.54(H) 0.50 - 2.20 mmol/L 10/26/2024 4:11 AM EDT [facility] Blood, Arterial 10/26/2024 3 :31 AM EDT 10/26/2024 4:11 AM EDT us Semaj Mcnair III, MD POINT OF CARE TEST ORDERABLES Final Result Performing Organization Address [facility] de Phone Number [facility] [address] [facility]. [address] * (ABNORMAL) POC Glucose (10/26/2024 3:31 AM EDT) POC Glucose, Arterial 153(H) 70 - 100 mg/dL 10/26/2024 4:11 AM EDT [facility] Blood, Arterial 10/26/2024 3 :31 AM EDT 10/26/2024 4:11 AM EDT us Semaj Mcnair III, MD POINT OF CARE TEST ORDERABLES Final Result Performing Organization Address [facility]/ZIP Co de Phone Number [facility] [address] * POC Ionized Calcium (10/26/2024 3:31 AM EDT) POC Ionized Calcium 5.10 4.50 - 5.30 mg/dL 10/26/2024 4:11 AM EDT [facility] Blood, Arterial 10/26/2024 3 :31 AM EDT 10/26/2024 4:11 AM EDT us Semaj Mcnair III, MD POINT OF CARE TEST ORDERABLES Final Result Performing Organization Address [facility] Co de Phone Number [facility] [address] * (ABNORMAL) POC Potassium (10/26/2024 3:31 AM EDT) POC Potassium 2.6(LL) 3.5 - 5.3 mmol/L 10/26/2024 4:11 AM EDT [facility] Blood, Arterial 10/26/2024 3 :31 AM EDT 10/26/2024 4:11 AM EDT us Semaj Mcnair III, MD POINT OF CARE TEST ORDERABLES Final Result Performing Organization Address [facility] Co de Phone Number [facility] [address] * POC Sodium (10/26/2024 3:31 AM EDT) POC Sodium 138 136 - 146 mmol/L 10/26/2024 4:11 AM EDT [facility] Blood, Arterial 10/26/2024 3 :31 AM EDT 10/26/2024 4:11 AM EDT us Semaj Mcnair III, MD POINT OF CARE TEST ORDERABLES Final Result Performing Organization Address City/[facility]/ZIP Co de Phone Number [facility] [address] * (ABNORMAL) POC TCO2 (10/26/2024 3:31 AM EDT) POC TCO2, Arterial 19(L) 23 - 27 mmol/L 10/26/2024 4:11 AM EDT [facility] Blood, Arterial 10/26/2024 3 :31 AM EDT 10/26/2024 4:11 AM EDT Semaj Mcnair III, MD POINT OF CARE TEST ORDERABLES Final Result [facility] [address] [facility]. [address] * POC O2 SAT (10/26/2024 3:31 AM EDT) POC O2 Saturation, Arterial 97 95 - 98 % 10/26/2024 4:11 AM EDT [facility] Blood, Arterial 10/26/2024 3 :31 AM EDT 10/26/2024 4:11 AM EDT us Semaj Mcnair III, MD POINT OF CARE TEST ORDERABLES Final Result [facility] [address] [facility]. [address] * (ABNORMAL) POC Base Excess (10/26/2024 3:31 AM EDT) POC Base Excess, Arterial -9(L) -2 - 3 mmol/L 10/26/2024 4:11 AM EDT [facility] Blood, Arterial 10/26/2024 3 :31 AM EDT 10/26/2024 4:11 AM EDT us Semaj Mcnair III, MD POINT OF CARE TEST ORDERABLES Final Result [facility] [address] [facility]. [address] * (ABNORMAL) POC HCO3 (10/26/2024 3:31 AM EDT) POC HCO3, Arterial 18(L) 22 - 26 mmol/L 10/26/2024 4:11 AM EDT [facility] Blood, Arterial 10/26/2024 3 :31 AM EDT 10/26/2024 4:11 AM EDT Semaj Mcnair III, MD POINT OF CARE TEST ORDERABLES Final Result [facility] [address] * (ABNORMAL) POC PO2 (10/26/2024 3:31 AM EDT) POC pO2, Arterial 104(H) 80 - 100 mm Hg 10/26/2024 4:11 AM EDT [facility] Blood, Arterial 10/26/2024 3 :31 AM EDT 10/26/2024 4:11 AM EDT us Semaj Mcnair III, MD POINT OF CARE TEST ORDERABLES Final Result Performing Organization Address [facility]/ZIP Co de Phone Number [facility] [address] * POC PCO2 (10/26/2024 3:31 AM EDT) POC pCO2, Arterial 42 35 - 45 mm Hg 10/26/2024 4:11 AM EDT [facility] Blood, Arterial 10/26/2024 3 :31 AM EDT 10/26/2024 4:11 AM EDT us Semaj Mcnair III, MD POINT OF CARE TEST ORDERABLES Final Result Performing Organization Address City/[facility]/ZIP Co de Phone Number [facility] [address] * (ABNORMAL) POC pH (10/26/2024 3:31 AM EDT) [facility] POC pH, Arterial 7.24(L) 7.35 - 7.45 10/26/2024 4:11 AM EDT [facility] Blood, Arterial 10/26/2024 3 :31 AM EDT 10/26/2024 4:11 AM EDT us Semaj Mcnair III, MD POINT OF CARE TEST ORDERABLES Final Result Performing Organization Address [facility]/ZIP Co de Phone Number [facility] [address] * (ABNORMAL) TEG-Global With Lysis (Baseline TEG with LY30, Will NOT Show Heparin Effect) (53:31 AM EDT) [facility] Citrated Kaolin Reaction Time (TEGLYSIS) 6.8 4.6 - 9.1 minutes 10/26/2024 5:02 AM EDT [facility] Citrated Rapid Teg Maximum Amplitude (TEGLYSIS) <40.0(L) 52.0 - 70.0 mm 10/26/2024 5:02 AM EDT [facility] Citrated Functional Fibrinogen Maximum Amplitude (TEGLYSIS) <4.0(L) 15.0 - 32.0 mm 10/26/2024 5:02 AM EDT [facility] Citrated Kaolin Percent Lysis (TEGLYSIS) 1.4 0.0 - 2.6 % 10/26/2024 5:02 AM EDT [facility] Whole Blood (Citrate) 10/26/2024 3:31 AM EDT 10/26/2024 3:40 AM EDT us Eber Quinones MD LAB BLOOD ORDERABLES Fin al Result [facility] [address] [facility]. [address] * (ABNORMAL) CBC (10/26/2024 3:31 AM EDT) [facility] WBC 9.5 3.8 - 10.8 10E3/uL 10/26/2024 3:48 AM EDT [facility] RBC 3.68(L) 4.20 - 5.80 10E6/uL 10/26/2024 3:48 AM EDT [facility] Hemoglobin 11.5(L) 13.2 - 17.1 g/dL 10/26/2024 3:48 AM EDT [facility] Hematocrit 33.0(L) 38.5 - 50.0 % 10/26/2024 3:48 AM EDT [facility] MCV 89.6 80.0 - 100.0 fL 10/26/2024 3:48 AM EDT [facility] MCH 31.1 27.0 - 33.0 pg 10/26/2024 3:48 AM EDT [facility] MCHC 34.8 32.0 - 36.0 g/dL 10/26/2024 3:48 AM EDT [facility] RDW 19.3(H) 11.0 - 15.0 % 10/26/2024 3:48 AM EDT [facility] Platelets 67(L) 140 - 400 10E3/uL 10/26/2024 3:48 AM EDT [facility] MPV 7.9 7.5 - 11.5 fL 10/26/2024 3:48 AM EDT [facility] Whole Blood 10/26/2024 3:31 AM EDT 10/26/2024 3:40 AM EDT us Eber Quinones MD LAB BLOOD ORDERABLES Fin al Result Performing Organization Address City/State/[facility] Co de Phone Number [facility] [address] * (ABNORMAL) Protime-INR (10/26/2024 3:31 AM EDT) Protime 27.0(H) 12.1 - 15.1 seconds 10/26/2024 3:51 AM EDT [facility] INR 2.4(H) 0.9 - 1.1 10/26/2024 3:51 AM EDT [facility] Comment: RECOMMENDED THERAPEUTIC RANGES USING INR : Stable oral anticoagulant therapy: 2.0 - 3.0 Mechanical prosthetic heart valve: 2.5 - 3.5 Recurrent acute myocardial infarction: 2.5 - 3.5 Plasma 10/26/2024 3:31 AM EDT 10/26/2024 3:40 AM EDT Result [facility] Eber Quinones MD LAB BLOOD ORDERABLES Fin al Result Performing Organization Address [facility] Co de Phone Number [facility] [address] [facility]. [address] * (ABNORMAL) Fibrinogen (10/26/2024 3:31 AM EDT) [facility] Fibrinogen 104(L) 218 - 406 mg/dL 10/26/2024 3:56 AM EDT [facility] Plasma 10/26/2024 3:31 AM EDT 10/26/2024 3:40 AM EDT Result [facility] Eber Quinones MD LAB BLOOD ORDERABLES Fin al Result Performing Organization Address [facility] Co de Phone Number [facility] [address] [facility]. [address] * Transfuse Fresh Frozen Plasma (10/26/2024 3:16 AM EDT) Result [facility] us Ben Blake MD NURSING TREATMENT ORDERABLES [...] Frozen Plasma (10/26/2024 2:39 AM EDT) Result [facility] us Ben Blake MD NURSING TREATMENT ORDERABLES - BLOOD ADMIN Final Result * Transfuse Fresh Frozen Plasma (10/26/2024 2:24 AM EDT) Result [facility] us Ben Blake MD NURSING TREATMENT ORDERABLES [...] Transfuse RBC (10/26/2024 1:45 AM EDT) Result [facility] us Ben Blake MD NURSING TREATMENT ORDERABLES - BLOOD ADMIN Final Result * (ABNORMAL) POC INR (10/26/2024 1:43 AM EDT) [facility] Prothrombin Time INR, POC 1.9(H) [...] AM EDT 10/27/2024 6:51 AM EDT Result [facility] Semaj Mcnair III, MD POINT OF CARE TEST ORDERABLES Final Result [facility] [address] [place] [address], [facility] * Transfuse Fresh Frozen Plasma (10/26/2024 1:41 AM EDT) us Ben Blake MD NURSING TREATMENT ORDERABLES - BLOOD ADMIN Final Result * Transfuse RBC (10/26/2024 1:40 AM EDT) Ben Blake MD NURSING TREATMENT ORDERABLES - BLOOD ADMIN Final Result * POC Sample Type (10/26/2024 1:40 AM EDT) POC Sample Type Arterial 10/26/2024 2:32 AM EDT [facility] Blood, Arterial 10/26/2024 1 :40 AM EDT 10/26/2024 2:32 AM EDT Semaj Mcnair III, MD POINT OF CARE TEST ORDERABLES Final Result Performing Organization Address [facility] Co de Phone Number [facility] [address] [place] [address]. [address] * POC Anion Gap (10/26/2024 1:40 AM EDT) POC Anion Gap, Arterial 13 3 - 16 mmol/L 10/26/2024 2:32 AM EDT [facility] Blood, Arterial 10/26/2024 1 :40 AM EDT 10/26/2024 2:32 AM EDT Semaj Mcnair III, MD POINT OF CARE TEST ORDERABLES Final Result Performing Organization Address [facility] Co de Phone Number [facility] [address] [place] [address]. [address] * POC Chloride (10/26/2024 1:40 AM EDT) POC Chloride 104 98 - 110 mmol/L 10/26/2024 2:32 AM EDT [facility] Blood, Arterial 10/26/2024 1 :40 AM EDT 10/26/2024 2:32 AM EDT us Semaj Mcnair III, MD POINT OF CARE TEST ORDERABLES Final Result Performing Organization Address City/[facility]/ZIP Co de Phone Number [facility] [address] * (ABNORMAL) POC Hemoglobin (10/26/2024 1:40 AM EDT) POC Hemoglobin 7.4(L) 14.0 - 18.0 g/dL 10/26/2024 2:32 AM EDT [facility] Blood, Arterial 10/26/2024 1 :40 AM EDT 10/26/2024 2:32 AM EDT us Semaj Mcnair III, MD POINT OF CARE TEST ORDERABLES Final Result Performing Organization Address City/[facility]/ZIP Co de Phone Number [facility] [address] * (ABNORMAL) POC hematocrit (10/26/2024 1:40 AM EDT) POC Hematocrit 22.0(L) 40 - 52 % 10/26/2024 2:32 AM EDT [facility] Blood, Arterial 10/26/2024 1 :40 AM EDT 10/26/2024 2:32 AM EDT us Semaj Mcnair III, MD POINT OF CARE TEST ORDERABLES Final Result Performing Organization Address City/[facility]/ZIP Co de Phone Number [facility] [address] * (ABNORMAL) POC Lactate (10/26/2024 1:40 AM EDT) POC Lactate 2.30(H) 0.50 - 2.20 mmol/L 10/26/2024 2:32 AM EDT [facility] Blood, Arterial 10/26/2024 1 :40 AM EDT 10/26/2024 2:32 AM EDT us Semaj Mcnair III, MD POINT OF CARE TEST ORDERABLES Final Result [facility] [address] * (ABNORMAL) POC Glucose (10/26/2024 1:40 AM EDT) POC Glucose, Arterial 116(H) 70 - 100 mg/dL 10/26/2024 2:32 AM EDT [facility] Blood, Arterial 10/26/2024 1 :40 AM EDT 10/26/2024 2:32 AM EDT us Semaj Mcnair III, MD POINT OF CARE TEST ORDERABLES Final Result [facility] [address] [facility]. [address] * (ABNORMAL) POC Ionized Calcium (10/26/2024 1:40 AM EDT) POC Ionized Calcium 4.10(L) 4.50 - 5.30 mg/dL 10/26/2024 2:32 AM EDT [facility] Blood, Arterial 10/26/2024 1 :40 AM EDT 10/26/2024 2:32 AM EDT us Semaj Mcnair III, MD POINT OF CARE TEST ORDERABLES Final Result Performing Organization Address City/[facility]/ZIP Co de Phone Number [facility] [address] [facility]. [address] * (ABNORMAL) POC Potassium (10/26/2024 1:40 AM EDT) POC Potassium 2.6(LL) 3.5 - 5.3 mmol/L 10/26/2024 2:32 AM EDT [facility] Blood, Arterial 10/26/2024 1 :40 AM EDT 10/26/2024 2:32 AM EDT us Semaj Mcnair III, MD POINT OF CARE TEST ORDERABLES Final Result [facility] [address] * (ABNORMAL) POC Sodium (10/26/2024 1:40 AM EDT) POC Sodium 135(L) 136 - 146 mmol/L 10/26/2024 2:32 AM EDT [facility] Blood, Arterial 10/26/2024 1 :40 AM EDT 10/26/2024 2:32 AM EDT Semaj Mcnair III, MD POINT OF CARE TEST ORDERABLES Final Result [facility] [address] * (ABNORMAL) POC TCO2 (10/26/2024 1:40 AM EDT) POC TCO2, Arterial 19(L) 23 - 27 mmol/L 10/26/2024 2:32 AM EDT [facility] Blood, Arterial 10/26/2024 1 :40 AM EDT 10/26/2024 2:32 AM EDT us Semaj Mcnair III, MD POINT OF CARE TEST ORDERABLES Final Result Performing Organization Address City/[facility]/ZIP Co de Phone Number [facility] [address] * (ABNORMAL) POC O2 SAT (10/26/2024 1:40 AM EDT) POC O2 Saturation, Arterial 99(H) 95 - 98 % 10/26/2024 2:32 AM EDT [facility] Blood, Arterial 10/26/2024 1 :40 AM EDT 10/26/2024 2:32 AM EDT us Semaj Mcnair III, MD POINT OF CARE TEST ORDERABLES Final Result [facility] [address] * (ABNORMAL) POC Base Excess (10/26/2024 1:40 AM EDT) POC Base Excess, Arterial -7(L) -2 - 3 mmol/L 10/26/2024 2:32 AM EDT [facility] Blood, Arterial 10/26/2024 1 :40 AM EDT 10/26/2024 2:32 AM EDT Semaj Mcnair III, MD POINT OF CARE TEST ORDERABLES Final Result [facility] [address] * (ABNORMAL) POC HCO3 (10/26/2024 1:40 AM EDT) POC HCO3, Arterial 18(L) 22 - 26 mmol/L 10/26/2024 2:32 AM EDT [facility] Blood, Arterial 10/26/2024 1 :40 AM EDT 10/26/2024 2:32 AM EDT us Semaj Mcnair III, MD POINT OF CARE TEST ORDERABLES Final Result [facility] [address] * (ABNORMAL) POC PO2 (10/26/2024 1:40 AM EDT) POC pO2, Arterial 145(H) 80 - 100 mm Hg 10/26/2024 2:32 AM EDT [facility] Blood, Arterial 10/26/2024 1 :40 AM EDT 10/26/2024 2:32 AM EDT us Semaj Mcnair III, MD POINT OF CARE TEST ORDERABLES Final Result [facility] [address] * (ABNORMAL) POC PCO2 (10/26/2024 1:40 AM EDT) POC pCO2, Arterial 33(L) 35 - 45 mm Hg 10/26/2024 2:32 AM EDT [facility] Blood, Arterial 10/26/2024 1 :40 AM EDT 10/26/2024 2:32 AM EDT Semaj Mcnair III, MD POINT OF CARE TEST ORDERABLES Final Result Performing Organization Address City/[facility]/ZIP Co de Phone Number [facility] [address] * POC pH (10/26/2024 1:40 AM EDT) POC pH, Arterial 7.35 7.35 - 7.45 10/26/2024 2:32 AM EDT [facility] Blood, Arterial 10/26/2024 1 :40 AM EDT 10/26/2024 2:32 AM EDT Semaj Mcnair III, MD POINT OF CARE TEST ORDERABLES Final Result Performing Organization Address City/[facility]/ZIP Co de Phone Number [facility] [address] * Transfuse Fresh Frozen Plasma (10/26/2024 1:20 AM EDT) Ben Blake MD NURSING TREATMENT ORDERABLES - BLOOD ADMIN Final Result * Transfuse RBC (10/26/2024 12:56 AM EDT) Ben Blake MD NURSING TREATMENT ORDERABLES - BLOOD ADMIN Final Result * (ABNORMAL) POC INR (10/26/2024 12:41 AM EDT) Prothrombin Time INR, POC 2.0(H) 0.8 - 1.4 10/27/2024 6:51 AM EDT [facility] Comment: Test results may vary [...] TEST ORDERABLES Final Result Performing Organization Address City/[facility] Co de Phone Number [facility] [address] [place] [address]. [address] * POC Sample Type (10/26/2024 12:39 AM EDT) POC Sample Type Arterial 10/26/2024 1:38 AM EDT [facility] Blood, Arterial 10/26/2024 1 2:39 AM EDT 10/26/2024 1:38 AM EDT Semaj Mcnair III, MD POINT OF CARE TEST ORDERABLES Final Result Performing Organization Address [facility] Co de Phone Number [facility] [address] [place] [address]. [address] * POC Anion Gap (10/26/2024 12:39 AM EDT) POC Anion Gap, Arterial 13 3 - 16 mmol/L 10/26/2024 1:38 AM EDT [facility] Blood, Arterial 10/26/2024 1 2:39 AM EDT 10/26/2024 1:38 AM EDT us Semaj Mcnair III, MD POINT OF CARE TEST ORDERABLES Final Result Performing Organization Address City/[facility] Co de Phone Number [facility] [address] [place] [address]. [address] * POC Chloride (10/26/2024 12:39 AM EDT) POC Chloride 103 98 - 110 mmol/L 10/26/2024 1:38 AM EDT [facility] Blood, Arterial 10/26/2024 1 2:39 AM EDT 10/26/2024 1:38 AM EDT us Semaj Mcnair III, MD POINT OF CARE TEST ORDERABLES Final Result [facility] [address] [facility]. [address] * (ABNORMAL) POC Hemoglobin (10/26/2024 12:39 AM EDT) POC Hemoglobin 7.9(L) 14.0 - 18.0 g/dL 10/26/2024 1:38 AM EDT [facility] Blood, Arterial 10/26/2024 1 2:39 AM EDT 10/26/2024 1:38 AM EDT us Semaj Mcnair III, MD POINT OF CARE TEST ORDERABLES Final Result Performing Organization Address [facility] Co de Phone Number [facility] [address] [facility]. [address] * (ABNORMAL) POC hematocrit (10/26/2024 12:39 AM EDT) POC Hematocrit 23.0(L) 40 - 52 % 10/26/2024 1:38 AM EDT [facility] Blood, Arterial 10/26/2024 1 2:39 AM EDT 10/26/2024 1:38 AM EDT us Semaj Mcnair III, MD POINT OF CARE TEST ORDERABLES Final Result Performing Organization Address City/[facility] Co de Phone Number [facility] [address] [facility]. [address] * POC Lactate (10/26/2024 12:39 AM EDT) POC Lactate 1.39 0.50 - 2.20 mmol/L 10/26/2024 1:38 AM EDT [facility] Blood, Arterial 10/26/2024 1 2:39 AM EDT 10/26/2024 1:38 AM EDT us Semaj Mcnair III, MD POINT OF CARE TEST ORDERABLES Final Result Performing Organization Address City/[facility]/ZIP Co de Phone Number [facility] [address] * (ABNORMAL) POC Glucose (10/26/2024 12:39 AM EDT) POC Glucose, Arterial 116(H) 70 - 100 mg/dL 10/26/2024 1:38 AM EDT [facility] Blood, Arterial 10/26/2024 1 2:39 AM EDT 10/26/2024 1:38 AM EDT us Semaj Mcnair III, MD POINT OF CARE TEST ORDERABLES Final Result Performing Organization Address [facility] Co de Phone Number [facility] [address] [facility]. [address] * (ABNORMAL) POC Ionized Calcium (10/26/2024 12:39 AM EDT) POC Ionized Calcium 4.30(L) 4.50 - 5.30 mg/dL 10/26/2024 1:38 AM EDT [facility] Blood, Arterial 10/26/2024 1 2:39 AM EDT 10/26/2024 1:38 AM EDT us Semaj Mcnair III, MD POINT OF CARE TEST ORDERABLES Final Result Performing Organization Address City/[facility] Co de Phone Number [facility] [address] [facility]. [address] * (ABNORMAL) POC Potassium (10/26/2024 12:39 AM EDT) POC Potassium 2.4(LL) 3.5 - 5.3 mmol/L 10/26/2024 1:38 AM EDT [facility] Blood, Arterial 10/26/2024 1 2:39 AM EDT 10/26/2024 1:38 AM EDT us Semaj Mcnair III, MD POINT OF CARE TEST ORDERABLES Final Result [facility] [address]as [facility]. [address] * POC Sodium (10/26/2024 12:39 AM EDT) POC Sodium 136 136 - 146 mmol/L 10/26/2024 1:38 AM EDT [facility] Blood, Arterial 10/26/2024 1 2:39 AM EDT 10/26/2024 1:38 AM EDT us Semaj Mcnair III, MD POINT OF CARE TEST ORDERABLES Final Result Performing Organization Address [facility] Co de Phone Number [facility] [address] [facility]. [address] * (ABNORMAL) POC TCO2 (10/26/2024 12:39 AM EDT) POC TCO2, Arterial 21(L) 23 - 27 mmol/L 10/26/2024 1:38 AM EDT [facility] Blood, Arterial 10/26/2024 1 2:39 AM EDT 10/26/2024 1:38 AM EDT us Semaj Mcnair III, MD POINT OF CARE TEST ORDERABLES Final Result Performing Organization Address City/[facility]/ZIP Co de Phone Number [facility] [address] [facility]. [address] * POC O2 SAT (10/26/2024 12:39 AM EDT) POC O2 Saturation, Arterial 98 95 - 98 % 10/26/2024 1:38 AM EDT [facility] Blood, Arterial 10/26/2024 1 2:39 AM EDT 10/26/2024 1:38 AM EDT us Semaj Mcnair III, MD POINT OF CARE TEST ORDERABLES Final Result Performing Organization Address City/[facility]/ZIP Co de Phone Number [facility] [address] [facility]. [address] * (ABNORMAL) POC Base Excess (10/26/2024 12:39 AM EDT) POC Base Excess, Arterial -7(L) -2 - 3 mmol/L 10/26/2024 1:38 AM EDT [facility] Blood, Arterial 10/26/2024 1 2:39 AM EDT 10/26/2024 1:38 AM EDT us Semaj Mcnair III, MD POINT OF CARE TEST ORDERABLES Final Result Performing Organization Address [facility] Co de Phone Number [facility] [address] * (ABNORMAL) POC HCO3 (10/26/2024 12:39 AM EDT) POC HCO3, Arterial 20(L) 22 - 26 mmol/L 10/26/2024 1:38 AM EDT [facility] Blood, Arterial 10/26/2024 1 2:39 AM EDT 10/26/2024 1:38 AM EDT us Semaj Mcnair III, MD POINT OF CARE TEST ORDERABLES Final Result Performing Organization Address City/[facility]/ZIP Co de Phone Number [facility] [address] [facility]. [address] * (ABNORMAL) POC PO2 (10/26/2024 12:39 AM EDT) POC pO2, Arterial 117(H) 80 - 100 mm Hg 10/26/2024 1:38 AM EDT [facility] Blood, Arterial 10/26/2024 1 2:39 AM EDT 10/26/2024 1:38 AM EDT Semaj Mcnair III, MD POINT OF CARE TEST ORDERABLES Final Result Performing Organization Address City/[facility]/ZIP Co de Phone Number [facility] [address] * (ABNORMAL) POC PCO2 (10/26/2024 12:39 AM EDT) POC pCO2, Arterial 46(H) 35 - 45 mm Hg 10/26/2024 1:38 AM EDT [facility] Blood, Arterial 10/26/2024 1 2:39 AM EDT 10/26/2024 1:38 AM EDT Semaj Mcnair III, MD POINT OF CARE TEST ORDERABLES Final Result Performing Organization Address [facility] Co de Phone Number [facility] [address] [facility]. [address] * (ABNORMAL) POC pH (10/26/2024 12:39 AM EDT) POC pH, Arterial 7.24(L) 7.35 - 7.45 10/26/2024 1:38 AM EDT [facility] Blood, Arterial 10/26/2024 1 2:39 AM EDT 10/26/2024 1:38 AM EDT Semaj cMnair III, MD POINT OF CARE TEST ORDERABLES Final Result Performing Organization Address City/[facility] Co de Phone Number [facility] [address] [facility]. [address] * Transfuse Platelets (10/26/2024 12:37 AM EDT) Result [facility] Ben Blake MD NURSING TREATMENT [...] AM EDT) Gram Stain Result Cytospin Results: [facility] Gram Stain Result Polymorphonuclear Leukocytes Seen; [facility] Gram Stain Result No Organisms Seen; [facility] Culture Result No Growth After 3 Days [facility] Surgical Swab ABDOMEN / Unknown 12:03 AM EDT Comment:2.) Ascites Anaerobhic culture Fungus culture Routine culture plus stain Narrative [facility] - 10/28/2024 9:38 PM EDT 2.) Ascites Anaerobhic culture Fungus culture Routine culture plus stain 2.) Ascites Semaj Mcnair III, MD MICROBIOLOGY - GENE RAL ORDERABLES Final Result [facility] [address] * Surgical Pathology Exam (10/26/2024 12:00 AM EDT) 10/26/2024 10/27/2024 Narrative [facility] - 10/26/2024 12:00 AM EDT CASE: [id number] PATIENT: BLAIR GILBERT Clinical History: Liver - kidney transplant Pre-Operative Diagnosis: Alcoholic cirrhosis of liver Post-Operative Diagnosis: Alcoholic cirrhosis of liver Specimen(s) Submitted: A. naknek liver CPT Code(s): 41529 X 1; 88794 X 5 Additional Information: FINAL DIAGNOSIS: A. 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 - Negative for neoplasm. - Increased hepatocellular iron deposition (3+; Modified Scheuer). Gall bladder: -Intramucosal and submucosal vascular congestion and hemorrhage. - Negative for dysplasia or malignancy. Gross Description: Received in formalin, labeled Blair Gilbert and naknek liver , is a 2338-gram, hepatectomy specimen [...] discrete masses or other lesions are identified. Rnfa sections are submitted in cassettes [id number] as follows: A1: Hilar margins, en face. A2: Cystic duct margin (en face), neck, body, and fundus. A3-A5: Right lobe ( liver is A3). A6-A8: Left lobe. (NAA Ruiz/kay) Microscopic Description: Trichrome stain highlights fibrous bands [...] Pathologist signing this report is located at [facility], [address] [place] [address], [place], [place], [facility], , CLIA ID: [id number] us Semaj Mcnair III, MD PATHOLOGY/CYTOLOGY ORDERABLES [...] 0.8 - 1.4 10/27/2024 6:51 AM EDT [facility] Comment: Test results may vary [...] POINT OF CARE TEST ORDERABLES Final Result [facility] [address] [place] [address] * POC Sample Type (10/25/2024 11:40 PM EDT) POC Sample Type Arterial 10/25/2024 11:57 PM EDT [facility] Blood, Arterial 10/25/2024 1 1:40 PM EDT 10/25/2024 11:57 PM EDT us Semaj Mcnair III, MD POINT OF CARE TEST ORDERABLES Final Result [facility] [address] [facility]. [address] * POC Anion Gap (10/25/2024 11:40 PM EDT) POC Anion Gap, Arterial 13 3 - 16 mmol/L 10/25/2024 11:57 PM EDT [facility] Blood, Arterial 10/25/2024 1 1:40 PM EDT 10/25/2024 11:57 PM EDT us Semaj Mcnair III, MD POINT OF CARE TEST ORDERABLES Final Result Performing Organization Address City/[facility]/ZIP Co de Phone Number [facility] [address] * POC Chloride (10/25/2024 11:40 PM EDT) Pathologist [facility] POC Chloride 102 98 - 110 mmol/L 10/25/2024 11:57 PM EDT [facility] Blood, Arterial 10/25/2024 1 1:40 PM EDT 10/25/2024 11:57 PM EDT us Semaj Mcnair III, MD POINT OF CARE TEST ORDERABLES Final Result [facility] [address] [facility]. [address] * (ABNORMAL) POC Hemoglobin (10/25/2024 11:40 PM EDT) Pathologist [facility] POC Hemoglobin 6.6(L) 14.0 - 18.0 g/dL 10/25/2024 11:57 PM EDT [facility] Blood, Arterial 10/25/2024 1 1:40 PM EDT 10/25/2024 11:57 PM EDT us Semaj Mcnair III, MD POINT OF CARE TEST ORDERABLES Final Result Performing Organization Address City/[facility]/ZIP Co de Phone Number [facility] [address] [facility]. [address] * (ABNORMAL) POC hematocrit (10/25/2024 11:40 PM EDT) POC Hematocrit 19.0(L) 40 - 52 % 10/25/2024 11:57 PM EDT [facility] Blood, Arterial 10/25/2024 1 1:40 PM EDT 10/25/2024 11:57 PM EDT us Semaj Mcnair III, MD POINT OF CARE TEST ORDERABLES Final Result Performing Organization Address [facility]/ZIP Co de Phone Number [facility] [address] [facility]. [address] * POC Lactate (10/25/2024 11:40 PM EDT) Pathologist [facility] POC Lactate 1.36 0.50 - 2.20 mmol/L 10/25/2024 11:57 PM EDT [facility] Blood, Arterial 10/25/2024 1 1:40 PM EDT 10/25/2024 11:57 PM EDT Semaj Mcnair III, MD POINT OF CARE TEST ORDERABLES Final Result [facility] [address] [facility]. [address] * (ABNORMAL) POC Glucose (10/25/2024 11:40 PM EDT) POC Glucose, Arterial 101(H) 70 - 100 mg/dL 10/25/2024 11:57 PM EDT [facility] Blood, Arterial 10/25/2024 1 1:40 PM EDT 10/25/2024 11:57 PM EDT Semaj Mcnair III, MD POINT OF CARE TEST ORDERABLES Final Result Performing Organization Address [facility] Co de Phone Number [facility] [address] [address] * POC Ionized Calcium (10/25/2024 11:40 PM EDT) POC Ionized Calcium 4.50 4.50 - 5.30 mg/dL 10/25/2024 11:57 PM EDT [facility] Blood, Arterial 10/25/2024 1 1:40 PM EDT 10/25/2024 11:57 PM EDT Semaj Mcnair III, MD POINT OF CARE TEST ORDERABLES Final Result Performing Organization Address [facility] Co de Phone Number [facility] [address] [facility]. [address] * (ABNORMAL) POC Potassium (10/25/2024 11:40 PM EDT) Pathologist [facility] POC Potassium 1.9(LL) 3.5 - 5.3 mmol/L 10/25/2024 11:57 PM EDT [facility] Blood, Arterial 10/25/2024 1 1:40 PM EDT 10/25/2024 11:57 PM EDT Semaj Mcnair III, MD POINT OF CARE TEST ORDERABLES Final Result Performing Organization Address [facility] Co de Phone Number [facility] [address] [facility]. [address] * (ABNORMAL) POC Sodium (10/25/2024 11:40 PM EDT) POC Sodium 135(L) 136 - 146 mmol/L 10/25/2024 11:57 PM EDT [facility] Blood, Arterial 10/25/2024 1 1:40 PM EDT 10/25/2024 11:57 PM EDT us Semaj Mcnair III, MD POINT OF CARE TEST ORDERABLES Final Result Performing Organization Address [facility] Co de Phone Number [facility] [address] [facility]. [address] * (ABNORMAL) POC TCO2 (10/25/2024 11:40 PM EDT) POC TCO2, Arterial 21(L) 23 - 27 mmol/L 10/25/2024 11:57 PM EDT [facility] Blood, Arterial 10/25/2024 1 1:40 PM EDT 10/25/2024 11:57 PM EDT us Semaj Mcnair III, MD POINT OF CARE TEST ORDERABLES Final Result Performing Organization Address [facility] Co de Phone Number [facility] [address] TownshipEdison [facility]. [address] * POC O2 SAT (10/25/2024 11:40 PM EDT) Pathologist [facility] POC O2 Saturation, Arterial 98 95 - 98 % 10/25/2024 11:57 PM EDT [facility] Blood, Arterial 10/25/2024 1 1:40 PM EDT 10/25/2024 11:57 PM EDT us Semaj Mcnair III, MD POINT OF CARE TEST ORDERABLES Final Result Performing Organization Address [facility] Co de Phone Number [facility] [address] TownshipMar[facility]za [facility]. [address] * (ABNORMAL) POC Base Excess (10/25/2024 11:40 PM EDT) POC Base Excess, Arterial -6(L) -2 - 3 mmol/L 10/25/2024 11:57 PM EDT [facility] Blood, Arterial 10/25/2024 1 1:40 PM EDT 10/25/2024 11:57 PM EDT us Semaj Mcnair III, MD POINT OF CARE TEST ORDERABLES Final Result Performing Organization Address [facility] Co de Phone Number [facility] [address]. [address] * (ABNORMAL) POC HCO3 (10/25/2024 11:40 PM EDT) POC HCO3, Arterial 20(L) 22 - 26 mmol/L 10/25/2024 11:57 PM EDT [facility] Blood, Arterial 10/25/2024 1 1:40 PM EDT 10/25/2024 11:57 PM EDT Semaj Mcnair III, MD POINT OF CARE TEST ORDERABLES Final Result Performing Organization Address [facility] Co de Phone Number [facility] [address] [facility]. [address] * (ABNORMAL) POC PO2 (10/25/2024 11:40 PM EDT) POC pO2, Arterial 107(H) 80 - 100 mm Hg 10/25/2024 11:57 PM EDT [facility] Blood, Arterial 10/25/2024 1 1:40 PM EDT 10/25/2024 11:57 PM EDT Semaj Mcnair III, MD POINT OF CARE TEST ORDERABLES Final Result Performing Organization Address [facility] Co de Phone Number [facility] [address] [facility]. [address] * POC PCO2 (10/25/2024 11:40 PM EDT) POC pCO2, Arterial 41 35 - 45 mm Hg 10/25/2024 11:57 PM EDT [facility] Blood, Arterial 10/25/2024 1 1:40 PM EDT 10/25/2024 11:57 PM EDT us Semaj Mcnair III, MD POINT OF CARE TEST ORDERABLES Final Result Performing Organization Address City/[facility]/ZIP Co de Phone Number [facility] [address]. [address] * (ABNORMAL) POC pH (10/25/2024 11:40 PM EDT) POC pH, Arterial 7.29(L) 7.35 - 7.45 10/25/2024 11:57 PM EDT [facility] Blood, Arterial 10/25/2024 1 1:40 PM EDT 10/25/2024 11:57 PM EDT Semaj Mcnair III, MD POINT OF CARE TEST ORDERABLES Final Result Performing Organization Address [facility] Co de Phone Number [facility] [address]. [address] * Urine culture (10/25/2024 11:08 PM EDT) Culture Result <1,000 cfu/mL [facility] Culture Result Skin/Urogeni rony Mckayla. No Further Workup. [facility] Newly Placed Berkowitz Urine URINE SPECIMEN / Unknown 10/25/2024 11:08 PM EDT Comment:urine culture Narrative [facility] - 10/28/2024 9:59 AM EDT urine culture urine culture us Semaj Mcnair III, MD MICROBIOLOGY - GENE RAL ORDERABLES Final Result Performing Organization Address City/[facility]/ZIP Co de Phone Number [facility] [address]. [address] * X-ray Portable Chest (10/25/2024 10:19 [...] 10/25/2024 10:38 PM EDT Leandra Og MD [facility] DIAGNOSTIC IMAGING ORDERABLES Final Result * Lactic Acid, STAT (10/25/2024 10:17 PM EDT) Lactate 1.6 0.5 - 2.2 mmol/L 10/25/2024 10:39 PM EDT [facility] Plasma 10/25/2024 10:1 7 PM EDT 10/25/2024 10:17 PM EDT Ben Blake MD LAB BLOOD ORDERABLES Final Re sult [facility] [address] [facility] [address] * (ABNORMAL) Ferritin (10/25/2024 10:17 PM EDT) Ferritin 623.2(H) 23.9 - 336.2 ng/mL 10/25/2024 11:02 PM EDT [facility] Serum 10/25/2024 10:1 7 PM EDT 10/25/2024 10:17 PM EDT Result [facility] Leandra Og MD LAB BLOOD ORDERABLES F inal Result Performing Organization Address [facility]/ZIP Co de Phone Number [facility] [address] [facility]. [address] * Iron Studies (Iron + TIBC) (10/25/2024 10:17 PM EDT) Iron 128 50 - 212 ug/dL 10/25/2024 10:44 PM EDT [facility] % Iron Saturation SEE COMMENT 15.0 - 55.0 % 10/25/2024 10:44 PM EDT [facility] Comment:Unable to calculate result because contributing result outside reportable range.. TIBC SEE COMMENT 261 - 462 ug/dL 10/25/2024 10:44 PM EDT [facility] Comment:Unable to calculate result because contributing result outside reportable range.. Serum 10/25/2024 10:1 7 PM EDT 10/25/2024 10:17 PM EDT Result [facility] Leandra Og MD LAB BLOOD ORDERABLES F inal Result [facility] [address] * PTH (10/25/2024 10:17 PM EDT) PTH 36.0 12.0 - 88.0 pg/mL 10/25/2024 11:01 PM EDT [facility] Serum 10/25/2024 10:1 7 PM EDT 10/25/2024 10:17 PM EDT us Leandra Og MD LAB BLOOD ORDERABLES F inal Result Performing Organization Address City/[facility]/ZIP Co de Phone Number [facility] [address] [place] [address]. [address] * HIV 1+2 Antibody/Antigen with Reflex (10/25/2024 10:17 PM EDT) Pathologist [facility] HIV 1+2 AB/AGN Nonreactive Nonreactive 10/25/2024 11:03 PM EDT [facility] Serum 10/25/2024 10:1 7 PM EDT 10/25/2024 10:16 PM EDT Narrative [facility] - 10/25/2024 11:03 PM EDT \HIVRNR us Leandra Og MD LAB BLOOD ORDERABLES F inal Result Performing Organization Address City/[facility] Co de Phone Number [facility] [address] [place] [address]. [address] * Hepatitis B Core Antibody (10/25/2024 10:17 PM EDT) Hep B Core Total Ab Nonreactive Nonreactive 10/25/2024 11:07 PM EDT [facility] Comment:Health Department no tified in accordance with reportable infectious disease guidelines. Serum 10/25/2024 10:1 7 PM EDT 10/25/2024 10:17 PM EDT Narrative [facility] - 10/25/2024 11:07 PM EDT A nonreactive final interpretation indicates that anti-HBc antibodies were not detected in the sample; it is possible that the individual is not infected with HBV. us Leandra Og MD LAB BLOOD ORDERABLES F inal Result [facility] [address] * Hepatitis C Antibody (10/25/2024 10:17 PM EDT) HCV Ab Nonreactive Nonreactive 10/25/2024 11:16 PM EDT [facility] Comment:Health Department no tified in accordance with reportable infectious disease guidelines. Serum 10/25/2024 10:1 7 PM EDT 10/25/2024 10:17 PM EDT Narrative [facility] - 10/25/2024 11:16 PM EDT Antibodies to HCV not detected; does not exclude the possibility of exposure to HCV. Leandra Og MD LAB BLOOD ORDERABLES F inal Result Performing Organization Address [facility] Co de Phone Number [facility] [address] * (ABNORMAL) Hepatitis B Surface Antibody, Quantitati (10/25/2024 10:17 PM EDT) HBSAB NUMBER 10.70(H) 0.00 - 9.99 mIU/mL 10/25/2024 11:52 PM EDT [facility] Hep B S Ab Equivocal (A) Nonreactive 10/25/2024 11:52 PM EDT [facility] Serum 10/25/2024 10:1 7 PM EDT 10/25/2024 10:17 PM EDT Leandra Og MD LAB BLOOD ORDERABLES F inal Result Performing Organization Address City/[facility]/ZIP Co de Phone Number [facility] [address] [facility]. [address] * Hepatitis B surface antigen (10/25/2024 10:17 PM EDT) Hep B Surface Ag Nonreactive Nonreactive 10/25/2024 11:12 PM EDT [facility] Comment:Health Department no tified in accordance with reportable infectious disease guidelines. Serum 10/25/2024 10:1 7 PM EDT 10/25/2024 10:17 PM EDT Narrative [facility] - 10/25/2024 11:12 PM EDT Specimen is considered negative for HBsAg. Leandra Og MD LAB BLOOD ORDERABLES F inal Result Performing Organization Address City/[facility]/ZIP Co de Phone Number [facility] [address] [facility]. [address] * Hepatitis A Antibody Total (10/25/2024 10:17 PM EDT) Anti-HAV Total (IgG + IgM) Nonreactive 10/25/2024 11:13 PM EDT [facility] Serum 10/25/2024 10:1 7 PM EDT 10/25/2024 10:17 PM EDT Narrative [facility] - 10/25/2024 11:13 PM EDT HAV antibodies not detected Leandra Og MD LAB BLOOD ORDERABLES F inal Result Performing Organization Address [facility] Co de Phone Number [facility] [address] [facility]. [address] * (ABNORMAL) Hepatic Function Panel (10/25/2024 10:17 PM EDT) Total Bilirubin 9.1(H) 0.0 - 1.5 mg/dL 10/25/2024 10:47 PM EDT [facility] Bilirubin, Direct 4.58(H) 0.00 - 0.40 mg/dL 10/25/2024 10:47 PM EDT [facility] AST 51(H) 13 - 39 U/L 10/25/2024 10:47 PM EDT [facility] ALT 23 7 - 52 U/L 10/25/2024 10:47 PM EDT [facility] Alkaline Phosphatase 144(H) 36 - 125 U/L 10/25/2024 10:47 PM EDT [facility] Total Protein 5.5(L) 6.4 - 8.9 g/dL 10/25/2024 10:47 PM EDT [facility] Albumin 3.5 3.5 - 5.7 g/dL 10/25/2024 10:47 PM EDT [facility] Bilirubin, Indirect 4.52(H) 0.00 - 1.10 mg/dL 10/25/2024 10:47 PM EDT [facility] Plasma 10/25/2024 10:1 7 PM EDT 10/25/2024 10:17 PM EDT us Leandra Og MD LAB BLOOD ORDERABLES F inal Result [facility] [address] [facility] [place] [address], [facility] * (ABNORMAL) Renal Function Panel w/EGFR (10/25/2024 10:17 PM EDT) Sodium 137 133 - 146 mmol/L 10/25/2024 10:47 PM EDT [facility] Potassium 2.1(LL) 3.5 - 5.3 mmol/L 10/25/2024 10:47 PM EDT [facility] Comment:Critical Result K:2. 1 Called to and read back by: ALICIA CARCAMO RN at: 10/25/2024 22:47:45 by:NANCY Chloride 100 98 - 110 mmol/L 10/25/2024 10:47 PM EDT [facility] CO2 20(L) 21 - 33 mmol/L 10/25/2024 10:47 PM EDT [facility] Anion Gap 17(H) 3 - 16 mmol/L 10/25/2024 10:47 PM EDT [facility] BUN 74(H) 7 - 25 mg/dL 10/25/2024 10:47 PM EDT [facility] Creatinine 3.87(H) 0.60 - 1.30 mg/dL 10/25/2024 10:47 PM EDT [facility] Glucose 114(H) 70 - 100 mg/dL 10/25/2024 10:47 PM EDT [facility] Calcium 9.3 8.6 - 10.3 mg/dL 10/25/2024 10:47 PM EDT [facility] Phosphorus 5.9(H) 2.1 - 4.7 mg/dL 10/25/2024 10:47 PM EDT [facility] Albumin 3.5 3.5 - 5.7 g/dL 10/25/2024 10:47 PM EDT [facility] Osmolality, Calculated 307(H) 278 - 305 mOsm/kg 10/25/2024 10:47 PM EDT [facility] EGFR 19 10/25/2024 10:47 PM EDT [facility] Comment:As of 2021, the estimated [...] MD LAB BLOOD ORDERABLES F inal Result [facility] [address] * (ABNORMAL) APTT, NO ANTICOAGULANT (10/25/2024 10:17 PM EDT) aPTT 41.7(H) 25.5 - 35.0 seconds 10/25/2024 10:36 PM EDT [facility] Plasma 10/25/2024 10:1 7 PM EDT 10/25/2024 10:17 PM EDT us Leandra Og MD LAB BLOOD ORDERABLES F inal Result Performing Organization Address [facility] Co de Phone Number [facility] [address] [facility]. [address] * (ABNORMAL) Protime-INR (10/25/2024 10:17 PM EDT) Pathologist [facility] Protime 21.7(H) 12.1 - 15.1 seconds 10/25/2024 10:35 PM EDT [facility] INR 1.8(H) 0.9 - 1.1 10/25/2024 10:35 PM EDT [facility] Comment: RECOMMENDED THERAPEUTIC RANGES USING INR : Stable oral anticoagulant therapy: 2.0 - 3.0 Mechanical prosthetic heart valve: 2.5 - 3.5 Recurrent acute myocardial infarction: 2.5 - 3.5 Plasma 10/25/2024 10:1 7 PM EDT 10/25/2024 10:17 PM EDT Leandra Og MD LAB BLOOD ORDERABLES F inal Result Performing Organization Address [facility] Co de Phone Number [facility] [address] [facility]. [address] * (ABNORMAL) Differential (10/25/2024 10:17 PM EDT) [facility] Differential Comments See Note 10/25/2024 10:54 PM EDT [facility] Comment: _Platelets Appear Decreased _Platelet Morphology Normal Scan Result PERFORMED 10/25/2024 10:54 PM EDT [facility] Neutrophils Relative 79.8 40.0 - 80.0 % 10/25/2024 10:54 PM EDT [facility] Lymphocytes Relative 9.6(L) 15.0 - 45.0 % 10/25/2024 10:54 PM EDT [facility] Monocytes Relative 8.9 0.0 - 12.0 % 10/25/2024 10:54 PM EDT [facility] Eosinophils Relative 1.3 0.0 - 8.0 % 10/25/2024 10:54 PM EDT [facility] Basophils Relative 0.4 0.0 - 1.0 % 10/25/2024 10:54 PM EDT [facility] nRBC 0 0 - 0 /100 WBC 10/25/2024 10:54 PM EDT [facility] Neutrophils Absolute 4,948 1,520 - 8,640 /uL 10/25/2024 10:54 PM EDT [facility] Lymphocytes Absolute 595 570 - 4,860 /uL 10/25/2024 10:54 PM EDT [facility] Monocytes Absolute 552 0 - 1,296 /uL 10/25/2024 10:54 PM EDT [facility] Eosinophils Absolute 81 0 - 864 /uL 10/25/2024 10:54 PM EDT [facility] Basophils Absolute 25 0 - 108 /uL 10/25/2024 10:54 PM EDT [facility] PLT Morphology Platelet morphology appears normal 10/25/2024 10:54 PM EDT [facility] Whole Blood 10/25/2024 10:1 7 PM EDT 10/25/2024 10:17 PM EDT us Leandra Og MD LAB BLOOD ORDERABLES F inal Result [facility] [address] * (ABNORMAL) CBC (10/25/2024 10:17 PM EDT) WBC 6.2 3.8 - 10.8 10E3/uL 10/25/2024 10:54 PM EDT [facility] RBC 2.40(L) 4.20 - 5.80 10E6/uL 10/25/2024 10:54 PM EDT [facility] Hemoglobin 8.3(L) 13.2 - 17.1 g/dL 10/25/2024 10:54 PM EDT [facility] Hematocrit 23.7(L) 38.5 - 50.0 % 10/25/2024 10:54 PM EDT [facility] MCV 98.9 80.0 - 100.0 fL 10/25/2024 10:54 PM EDT [facility] MCH 34.6(H) 27.0 - 33.0 pg 10/25/2024 10:54 PM EDT [facility] MCHC 35.0 32.0 - 36.0 g/dL 10/25/2024 10:54 PM EDT [facility] RDW 17.8(H) 11.0 - 15.0 % 10/25/2024 10:54 PM EDT [facility] Platelets 56(L) 140 - 400 10E3/uL 10/25/2024 10:54 PM EDT [facility] Comment: Specimen checked for clots. None detected. Slide Reviewed for PLT Clumps. None Seen. Platelet Estimate Decreased 10/25/2024 10:54 PM EDT [facility] MPV 8.1 7.5 - 11.5 fL 10/25/2024 10:54 PM EDT [facility] Whole Blood 10/25/2024 10:1 7 PM EDT 10/25/2024 10:17 PM EDT Narrative [facility] - 10/25/2024 10:54 PM EDT Peripheral blood smear was scanned per review criteria approved by the laboratory medical technologist blood bank. Leandra Og MD LAB BLOOD ORDERABLES F inal Result Performing Organization Address [facility] Co de Phone Number [facility] [address] [place] [address] * Donor Specific Antibody (DSA) (10/25/2024 10:00 PM EDT) AntiDonor Antibodies The request and specimen(s) for this test have been received and transported to the [facility] at [address] [place] [address]. The [facility] will report results directly to the client. 10/25/2024 10:20 PM EDT [facility] Comment:Testing performed by [facility], [facility], [address] [place] [address]. The [facility] report has been forwarded to the appropriate ordering location. Please refer to this report for patient results. Serum 10/25/2024 10:0 0 PM EDT 10/25/2024 10:20 PM EDT Leandra Og MD LAB BLOOD ORDERABLES F inal Result [facility] [address] * (ABNORMAL) Venous Blood Gas, Line/Syringe (10/25/2024 10:00 PM EDT) PH-Line Draw 7.38 7.32 - 7.42 10/25/2024 10:08 PM EDT [facility] PCO2-Line Draw 33(L) 41 - 51 mm Hg 10/25/2024 10:08 PM EDT [facility] PO2-Line Draw 33 25 - 40 mm Hg 10/25/2024 10:08 PM EDT [facility] HCO3-Line Draw 20(L) 24 - 28 mmol/L 10/25/2024 10:08 PM EDT [facility] CO2 Content-Line Draw 21(L) 25 - 29 mmol/L 10/25/2024 10:08 PM EDT [facility] Base Excess-Line Draw -5.0(L) -2.0 - 3.0 mmol/L 10/25/2024 10:08 PM EDT [facility] %HBO2-Line Draw 53.8 40.0 - 70.0 % 10/25/2024 10:08 PM EDT [facility] Carboxyhgb-Ludivina e Draw 1.9 % 10/25/2024 10:08 PM EDT [facility] Comment: CARBOXYHEMOGLOBIN (CO) REFERENCE RANGES: Non-Smokers: <2 % Smokers: <8 % TOXIC: >20 % Methemoglobin- Line Draw 0.2 0.0 - 1.5 % 10/25/2024 10:08 PM EDT [facility] Reduced Hemoglobin-Ludivina e Draw 44.1(H) 0.0 - 5.0 % 10/25/2024 10:08 PM EDT [facility] Venous, Line Draw 10/25/2024 10:00 PM EDT 10/25/2024 10:04 PM EDT us Leandra Og MD LAB BLOOD ORDERABLES F inal Result [facility] [address] [place] [address], [facility] * (ABNORMAL) POC Glucose Monitoring Device (10/25/2024 9:56 PM EDT) POC Glucose Monitoring Device 103(H) 70 - 100 mg/dL 10/25/2024 9:58 PM EDT [facility] Blood 10/25/2024 9:56 PM EDT 10/25/2024 9:57 PM EDT Semaj Mcnair III, MD POINT OF CARE TEST ORDERABLES Final Result Performing Organization Address [facility] Co de Phone Number [facility] [address] * ECG 12 lead (MUSE) (10/25/2024 9:34 PM EDT) 10/25/2024 9:34 PM EDT Narrative MUSE - 10/27/2024 10:08 AM EDT Ventricular Rate: 97 BPM Atrial Rate: 86 BPM QRS Duration: 106 ms QT: 532 ms QTc: 675 ms P [place]: 38 degrees R [place]: -29 degrees T [place]: 32 degrees Diagnosis Line: Critical Test Result: Long QTc , AV Block ^ SINUS RHYTHM WITH PREMATURE VENTRICULAR COMPLEXES ^ PROLONGED QT ^ NONSPECIFIC ST AND T WAVE CHANGES ^ ABNORMAL ECG ^ ^ Confirmed by MD HA, [facility] ([facility]) on 10/27/2024 10:08:26 AM Leandra Og MD ECG ORDERABLES Final Result Performing Organization Address [facility] Co de Phone Number MUSE * Hepatitis C RNA, Quant Reflex to Genotyp (10/25/2024 8:18 PM EDT) Pathologist [facility] International Units Not Detected IU/mL 10/27/2024 11:03 AM EDT [facility] Comment:Test methodology for HCV RNA quantification is an FDA-approved nucleic acid amplification assay. The Lower Limit of Quantitation (LLOQ) is 15 IU/mL. The linear range of the assay is 15-100,000,000 IU/mL. The Limit of Detection (LoD) is 12.0 IU/mL for EDTA plasma. The reference range is Not Detected. IU log10 See Note log 10 IU/mL 10/27/2024 11:03 AM EDT [facility] Comment:HCV RNA not detected . Plasma 10/25/2024 8:18 PM EDT 10/25/2024 10:27 PM EDT us Leandra Og MD LAB BLOOD ORDERABLES F inal Result [facility] [address] [place], [place] [address] * Urinalysis w/Rfl to Microscopic (10/25/2024 8:18 PM EDT) Color, UA Yellow Yellow,Straw 10/25/2024 10:38 PM EDT [facility] Clarity, UA Clear Clear 10/25/2024 10:38 PM EDT [facility] Specific [place], UA 1.010 1.005 - 1.035 10/25/2024 10:38 PM EDT [facility] pH, UA 6.0 5.0 - 8.0 10/25/2024 10:38 PM EDT [facility] Protein, UA Negative Negative mg/dL 10/25/2024 10:38 PM EDT [facility] Glucose, UA Negative Negative mg/dL 10/25/2024 10:38 PM EDT [facility] Ketones, UA Negative Negative mg/dL 10/25/2024 10:38 PM EDT [facility] Bilirubin, UA Negative Negative 10/25/2024 10:38 PM EDT [facility] Blood, UA Negative Negative 10/25/2024 10:38 PM EDT [facility] Nitrite, UA Negative Negative 10/25/2024 10:38 PM EDT [facility] Urobilinogen, UA <2.0 0.2 - 1.9 mg/dL 10/25/2024 10:38 PM EDT [facility] Leukocyte Esterase, UA Negative Negative 10/25/2024 10:38 PM EDT [facility] Urine 10/25/2024 8:18 PM EDT 10/25/2024 10:35 PM EDT Narrative [facility] - 10/25/2024 10:38 PM EDT Microscopic testing is not performed when the dipstick is negative for blood, leukocyte, protein and nitrite. Leandar Og MD URINE ORDERABLES Final Result Performing Organization Address City/[facility]/ZIP Co de Phone Number [facility] [address] [place] [address] * Toxoplasma gondii antibody, IgG (10/25/2024 8:18 PM EDT) Pathologist [facility] Toxoplasma Gondii IgG <3.0 0.0 - 7.1 IU/mL 10/27/2024 7:55 AM EDT [facility] Comment: Negative <7.2 Equivocal 7.2 - 8.7 Positive >8.7 Serum 10/25/2024 8:18 PM EDT 10/27/2024 8:06 AM EDT Narrative [facility] - 10/27/2024 8:06 AM EDT PERFORMED AT: [facility] [id number] TEACHER ADVISOR: Bassam Khalil, PhD PHONE: [phone] Leandra Og MD LAB BLOOD ORDERABLES F inal Result Performing Organization Address [facility] Co de Phone Number [facility] [address] [place] [address]. [address] * Antibody Screen (10/25/2024 7:46 PM EDT) Pathologist [facility] Antibody Screen Negative 10/25/2024 10:41 PM EDT [facility] Blood 10/25/2024 7:46 PM EDT 10/25/2024 9:54 PM EDT Narrative [facility] - 10/25/2024 10:44 PM EDT Testing performed by [facility] Transfusion Service Ben Blake MD BLOOD BANK TEST ORDERABLES Fi nal Result [facility] [address] * ABO/Rh (10/25/2024 7:46 PM EDT) ABO Grouping O 10/25/2024 10:23 PM EDT [facility] Rh Type Positive 10/25/2024 10:23 PM EDT [facility] Blood 10/25/2024 7:46 PM EDT 10/25/2024 9:54 PM EDT us Ben Blake MD BLOOD BANK TEST ORDERABLES Fi nal Result [facility] [address] [place] [address], [facility] * (ABNORMAL) TEG-Standard Global Hemostasis (Rapid TEG with Heparin Effect, Contains a Baseline TEG) (10/25/2024 7:46 PM EDT) Citrated Kaolin Reaction Time (TEGHEPARINASE) 8.4 4.6 - 9.1 minutes 10/25/2024 10:49 PM EDT [facility] Citrated Rapid Teg Maximum Amplitude (TEGHEPARINASE) <40.0(L) 52.0 - 70.0 mm 10/25/2024 10:49 PM EDT [facility] Citrated Functional Fibrinogen Maximum Amplitude (TEGHEPARINASE) 6.7(L) 15.0 - 32.0 mm 10/25/2024 10:49 PM EDT [facility] Citrated Kaolin W/Heparinase Reaction Time (TEGHEPARINASE) 8.1 4.3 - 8.3 minutes 10/25/2024 10:49 PM EDT [facility] Citrated Kaolin K-Time (TEGHEPARINASE) 2.5(A) 0.8 - 2.1 minutes 10/25/2024 10:49 PM EDT [facility] Citrated Kaolin Angle (TEGHEPARINASE) 65.7(A) 63.0 - 78.0 degrees 10/25/2024 10:49 PM EDT [facility] Citrated Kaolin Maximum Amplitude (TEGHEPARINASE) <40.0(L) 52.0 - 69.0 mm 10/25/2024 10:49 PM EDT [facility] Citrated Functional Fibrinogen- Fibrinogen Level (TEGHEPARINASE) 159.5(L) 278.0 - 581.0 mg/dL 10/25/2024 10:49 PM EDT [facility] Whole Blood (Citrate) 10/25/2024 7:46 PM EDT 10/25/2024 10:15 PM EDT us Ben Blake MD LAB BLOOD ORDERABLES Final Re sult [facility] [address] [place] [address], [facility] documented in this encounter Visit Diagnoses Diagnosis Acute kidney injury superimposed on CKD ([facility])- Primary Prophylactic antibiotic Encounter for long-term (current) use of antibiotics Prolonged QT interval Nonspecific abnormal electrocardiogram (ECG) (EKG) Immunosuppression ([facility]) Abdominal pain, unspecified abdominal location Acute kidney injury superimposed on CKD ([facility]) documented in this encounter Administered Medications Inactive [...] Paulette Flannery RN)1714 (Given - Provider: Paulette Flanenry RN)2118 (Given - Provider: Yvonne Gale RN) [...] Gale, ЮЛИЯ)0615 (Given - Provider: Yvonne Gale, ЮИЛЯ)1153 (Given - Provider: Paulette Flannery, ЮЛИЯ)1714 (Given - Provider: Paulette Flannery, ЮЛИЯ)2120 (Given - Provider: Yvonne Gale, ЮЛИЯ) 0123 (Given - Provider: Yvonne Gale RN)0543 (Given - Provider: Yvonne Gale, ЮЛИЯ)1219 (Given - Provider: Pualette Flannery, ЮЛИЯ) OMNIPAQUE (iohexol) 240 mg iodine/mL [...] documented as of this encounter Care Teams Brim Cutter Relationship Specialty Start Date End Date Enedina Mcguire NP [address] [place], [place] [id number] PCP - General Internal Medicine 10/05/24 documented as of this encounter
--- OUTSIDE RECORDS SUMMARY | 2024-10-27 02:34 | XMS_ITS | Encounter Summary ---
Author Organization [facility] Address [facility] [place] [address] Care Team Providers Care Patient Registration Manager Name Role Phone Enedina Mcguire NP Primary Care Provider [phone] Source Comments This information has been disclosed [...] release of HIV test results or diagnoses. [id number] Reason for Visit * Auth/Cert (Routine) Specialty Diagnoses / Procedures Referred By Shane t Referred To Contact Surgical Intensive Care Diagnoses Liver transplant recipient (CMS-HCC) cirrhosis and CKD Procedures LIVER-KIDNEY TRANSPLANT [facility] SICU [address] [place] [address] Phone: tel: Referral ID Status Reason Start Date Expiration Date Visits Re quested Visits Authorized [id number] 1 1 Encounter Details Date Type Department Care Team (Late st Contact Info) Description 10/27/2024 2:34 AM EDT Anesthesia Event [facility] PERIOP [address] [place] [address] Rocky Manning MD [address] [place] [phone] Con Gramajo MD [address] [place] [address] Anesthesia Record Procedure Summary Procedure Name Responsible [...] sodium chloride 0.9% 1 00 mL IVPB (Vkov1Mog) 1 g cefTRIAXone (ROCEPHIN) 2 g in sodium chl oride 0.9 % 100 mL Pszh2Tnh 2 g electrolyte-r (pH 7.4)(NORMOSOL-R pH 7.4 [...] Sounds Confirmed 10/26/24 0622 by Martha Phillip, STRAW HAT PRESSER 10/27/24 1310 by Chinedu Almeida, STRAW HAT PRESSER Drain 10/27/24; 0636; Bulb ; Abdomen; Inferior, [...] the past 12 months has th e Turbocoating, gas, oil, or water [employer] threatened to shut off services in your [...] in a long term (including now)? No 10/29/2024 Yearly Questionnaire Answer [...] Blake MD - 10/26/2024 8:01 PM EDT [facility] DEPARTMENT OF ANESTHESIOLOGY PRE-PROCEDURAL EVALUATION Julien Anderson is a 39 y.o. year old male presenting for: Procedure(s): TRANSPLANT KIDNEY with bile duct reconstruction Surgeon: Harvey Domínguez III, MD Chief Complaint cirrhosis and CKD; Liver transplant recipient ([facility]-H[facility]) EtOH cirrhosis decompensated by esophageal varices, hepatic [...] dysrhythmias, angina, orthopnea. ECG reviewed. ROS comment: [facility] 10/14/24: IMPRESSIONS: - Patent coronary arteries [...] is no recent study available for direct fedj-pq-aqsp comparison. Stress echo 10/09/24: - Left ventricle: [...] at baseline or with provocation, shows no nhuyw-ol-ktru atrial level shunt. - Pulmonary arteries: Systolic [...] Resource Strain: Low Risk (07/09/2024) [facility] Overall Financial Resource Strain (CARDIA) Difficulty [...] Activity: Unknown (07/14/2024) Received from [facility] Exercise Vital Sign Days of Exercise per Week: Patient unable to answer Minutes of Exercise per Session: Not on file Stress: Patient Unable To Answer (07/14/2024) Received from [facility] [place] of Occupational Health - Occupational Stress Questionnaire Feeling of Stress : Patient unable to answer Social Connections: Patient Unable To Answer (07/14/2024) Received from [facility] Social Connection and Isolation Panel [NHANES] Frequency of Communication with Friends and Family: Patient unable to answer Frequency of Social Gatherings with Friends and Family: Patient unable to answer Attends Hoahaoism Services: Patient unable to answer Active Member [...] at 9:00 PM naloxone (NARCAN) 4 mg/actuation [place] Apply 1 spray in one nostril if [...] Blood products not discussed. Plan discussed with TOOL OPERATOR and attending. no trial extubation [1] [...] Anesthesia Transfer of Care Note Patient: Julien Andreson Procedure(s) Performed: Procedure(s): TRANSPLANT KIDNEY with bile [...] Date 10/26/24699 - 10/27/2465810/27/24699 - 10/28/2459 Shift 5905-9169 2650-4380 0948-3688 24 Hour Total 6041-2443 9758-0763 8358-3425 24 Hour Total INTAKE I.V.(mL/kg) 1450.8(11.8) 999.1(8.2) [...] 1 x 1 x 3 x Albumin 4438 960 7966 Volume (Transfuse Cryoprecipitate Transfusion Rate: Per dept [...] in sodium chloride 0.9 % 100 mL Vhhq8Wag) 20 20 Volume (mL) (methylPREDNISolone sodium succinate (SOLU-medrol) 250 mg in sodium chloride 0.9 % 100 mL IVPB) 100 100 Volume (mL) (AMPicillin 1 g in sodium chloride 0.9% 100 mL IVPB (Xdpt9Muc)) 200.2 100 120 420.1 Volume (mL) (mycophenolate [...] 99.3 99.3 Shift Total(mL/kg) 3124.1(25.5) 4253.7(34.7) 6907(56.4) 02341.8(116.6) OUTPUT Urine(mL/kg/hr) 955(1) 505(0.5) 690(0.7) 2150(0.7) 360 360 Urine 315 315 360 360 Output (mL) (IUC (Berkowitz) Triple-lumen (3-Way) 18 Fr.) 955 562 029 6961 Emesis/NG output 250 600 850 Drainage Output (mL) (NG/OG Tube Orogastric) 250 600 850 Drains 1700 7389 728 1385 Output (mL) (Drain Bilary Abdomen Inferior;Right) 100 150 250 Output (mL) ([REMOVED] Drain 1 Abdomen Right;Superior) 800 296 878 4172 Output (mL) (Drain 2 Left;Superior) 800 545 99 3267 Blood 300 300 Est Blood Loss 300 [...] in sodium chloride 0.9% 100 mL IVPB (Ltcc1Txq) 1 g, Intravenous, at 200 mL/hr, Every 6 hours scheduled (4 times per day), First dose on Sun10/26/24 at 0630, For 2 days, Dosage may need to be adjusted for renal dysfunction. Full dose is 1g IV q6h Use Cwoj9Dnh Adapter - Mix Thoroughly Before Administration New [...] Once underlying shock sufficiently improved, defined as ayo-vwkbfpbesks-[place]-presso r requirement ? 0.2 mcg/kg/min (norepinephrine equivalent) [...] in sodium chloride 0.9 % 100 mL Gjdp1Vmj Intravenous, Administer over 30 Minutes, Continuous - [...] paralyzed: Do not titrate - follow policy [id number]. Start infusion if unable to maintain goal [...] documented as of this encounter Care Teams Patient Registration Manager Relationship Specialty Start Date End Date Enedina Mcguire NP [address] [place] [address] PCP - General Internal Medicine 10/05/24 documented as of this encounter
--- OUTSIDE RECORDS SUMMARY | 2024-11-04 08:40 | XMS_ITS | Encounter Summary ---
Author Organization [facility] Address [address] [place] [address] Care Team Providers Care Inside Sales Manager Name Role Phone Enedina Mcguire NP Primary Care Provider + [phone] Maureen Pantoja RN Unavailable Unavail able Source [...] release of HIV test results or diagnoses. [id number] Reason for Visit * Reason Comments Liver Transplant Follow-up Encounter Details Date Type Department Care Team (Late st Contact Info) Description 11/04/2024 8:40 AM EDT Office Visit [facility] Liver Transplant at [place] [id number] [facility] [address] [place] [address] Cosmo Pacheco MD [address] [place] [address] [address] [place] [address] Liver transplant recipient (CMS-HCC) (Primary [...] the past 12 months has th e [employer], [employer], oil, or water company threatened to shut [...] any time in the past 12 m [facility], were you homeless or living in [...] Nutrition: patient continues close f/u w/ transplant food and beverage analyst. - Bone health: Vit D level to be drawn ~POD#90. - Labs: Labs (CBC w/ diff, renal panel, liver panel, tacro level) twice a week. Lipid panel, [id number] Vit D level to be drawn at [...] management for this patient. Cosmo Pacheco MD Gummed Tape Press Operator of Transplant Surgery [phone] (m) [1] Allergies Allergen Reactions Adhesive Itching [...] RN - 11/04/2024 8:40 AM EDT Per WESLEY Stack for patient to stop Linezolid on 11/09/24. She will notify patient. documented in this encounter Plan of Treatment Not on file documented as of this encounter Visit Diagnoses Diagnosis Liver transplant recipient ([facility]-H[facility])- Primary Alcoholic cirrhosis of liver with ascites ([facility]-HCC) Kidney transplant recipient Acute kidney injury superimposed on CKD ([facility]) CKD (chronic kidney disease) stage 4, GFR 15-29 ml/min ([facility]-HCC) Chronic kidney disease, Stage IV (severe) Immunosuppressive management encounter following liver transplant ([facility]) Abdominal pain, unspecified abdominal location documented in this encounter Additional Health Concerns Infection Onset Date Last Indicated Resolved Time 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, VRE- urine 10/31/2024 11/04/2024 Assessment Noted Time PHQ-9 Depression Total Score: 17 025 11:00 AM EDT documented as of this encounter Care Teams Inside Sales Manager Relationship Specialty Start Date End Date Enedina Mcguire NP [address] [place] [address] PCP - General Internal Medicine 10/05/24 Maureen Pantoja, ЮЛИЯ Txp Post Coordinator Transplant Hepatology 10/28/24 documented as of this encounter
--- OUTSIDE RECORDS SUMMARY | 2024-11-04 10:10 | XMS_ITS | Encounter Summary ---
Author Organization [facility] Address [facility] [place] [address] Care Team Providers Care Learning Engineer Name Role Phone Enedina Mcguire NP Primary Care Provider + [phone] Maureen Pantoja RN Unavailable Unavail able Source [...] release of HIV test results or diagnoses. [id number] Reason for Visit * Reason Comments Kidney Transplant Follow-up Encounter Details Date Type Department Care Team (Late st Contact Info) Description 11/04/2024 10:10 AM EDT Office Visit [facility] Liver Transplant at [facility] [address] [facility] [address] [place] [address] Leisa Juarez MD [employer] 2nd [place] [address] Kidney transplant recipient (Primary Dx); [...] the past 12 months has th e [employer], [employer], oil, or water [employer] threatened to shut off services in your [...] packing; Surgeon: Harvey Domínguez III, MD; Location: [facility]; Service: Transplant; Laterality: N/A; Family History: No [...] No Physical Activity: Unknown (07/14/2024) Received from [facility] Exercise Vital Sign Days of Exercise per Week: Patient unable to answer Minutes of Exercise per Session: Not on file Stress: Patient Unable To Answer (07/14/2024) Received from [facility] [place] [facility] Occupational Health - Occupational Stress Questionnaire Feeling of Stress : Patient unable to answer Social Connections: Patient Unable To Answer (07/14/2024) Received from [facility] Social Connection and Isolation Panel [NHANES] Frequency of Communication with Friends and Family: Patient unable to answer Frequency of Social Gatherings with Friends and Family: Patient unable to answer Attends [employer] Services: Patient unable to answer Active Member [...] times a day. naloxone (NARCAN) 4 mg/actuation [place] Apply 1 spray in one nostril [...] Results Component Value Date PTH 36.0 10/25/2024 [id number] 7.1 (L) 10/08/2024 Hemoglobin A1C: Lab Results [...] - 2.5 mg/dL 11/25/2024 10:20 AM EDT [facility] Plasma 11/25/2024 8:42 AM EDT 11/25/2024 9:47 AM EDT Yareli Zaragoza [facility] BLOOD ORDERABLES Denisse l Result Performing Organization Address City/[facility]/ZIP Co de Phone Number [facility] [address] * (ABNORMAL) Magnesium (11/11/2024 9:13 AM EDT) Magnesium 1.2(L) 1.5 - 2.5 mg/dL 11/11/2024 10:51 AM EDT [facility] Plasma 11/11/2024 9:13 AM EDT 11/11/2024 10:19 AM EDT Yareli Zaragoza [facility] BLOOD ORDERABLES Denisse l Result [facility] [address] * (ABNORMAL) Post Kidney Transplant Urine Culture (11/11/2024 9:13 AM EDT) Culture Result Enterococcus faecium(A) [facility] Comment: <1,000 cfu/mL Identified by MALDI-TOF MS No Further Workup Midstream Urine URINE SPECIMEN / Unknown 11/11/2024 9:13 AM EDT 11/11/2024 10:17 AM EDT Yareli Zaragoza CNP MICROBIOLOGY - GENERAL OR DERABLES Final Result Performing Organization Address [facility] Co de Phone Number [facility] [address] [facility]. [address] * Protein / creatinine ratio, urine (11/11/2024 9:13 AM EDT) Creatinine, Urine 71.40 mg/dL 11/11/2024 10:38 AM EDT [facility] Comment:Reference range not established for this test. Total Protein, Ur 28 mg/dL 11/11/2024 10:38 AM EDT [facility] Comment:Reference range not established for this test. Prot/Creat Ratio, Ur 0.39 ratio 11/11/2024 10:38 AM EDT [facility] Urine 11/11/2024 9:13 AM EDT 11/11/2024 10:12 AM EDT us Yareli Zaragoza CNP URINE ORDERABLES Final Re sult Performing Organization Address [facility]/ZIP Co de Phone Number [facility] [address] [facility]. [address] * (ABNORMAL) Urinalysis w/Rfl to Microscopic (11/11/2024 9:13 AM EDT) Color, UA Straw Yellow,Straw 11/11/2024 10:36 AM EDT [facility] Clarity, UA Clear Clear 11/11/2024 10:36 AM EDT [facility] Specific [place], UA 1.015 1.005 - 1.035 11/11/2024 10:36 AM EDT [facility] pH, UA 6.0 5.0 - 8.0 11/11/2024 10:36 AM EDT [facility] Protein, UA Negative Negative mg/dL 11/11/2024 10:36 AM EDT [facility] Glucose, UA Negative Negative mg/dL 11/11/2024 10:36 AM EDT [facility] Ketones, UA Negative Negative mg/dL 11/11/2024 10:36 AM EDT [facility] Bilirubin, UA Negative Negative 11/11/2024 10:36 AM EDT [facility] Blood, UA Small(A) Negative 11/11/2024 10:36 AM EDT [facility] Nitrite, UA Negative Negative 11/11/2024 10:36 AM EDT [facility] Urobilinogen, UA <2.0 0.2 - 1.9 mg/dL 11/11/2024 10:36 AM EDT [facility] Leukocyte Esterase, UA Negative Negative 11/11/2024 10:36 AM EDT [facility] RBC, UA 13(H) 0 - 3 /HPF 11/11/2024 10:36 AM EDT [facility] WBC, UA 4 0 - 5 /HPF 11/11/2024 10:36 AM EDT [facility] Urine 11/11/2024 9:13 AM EDT 11/11/2024 10:10 AM EDT Yareli Zaragoza DIRECTOR OF PLANNING URINE ORDERABLES Final Re sult Performing Organization Address [facility]/ZIP Co de Phone Number [facility] [address] * (ABNORMAL) Magnesium (11/04/2024 8:46 AM EDT) Magnesium 1.0(L) 1.5 - 2.5 mg/dL 11/04/2024 10:06 AM EDT [facility] Plasma 11/04/2024 8:46 AM EDT 11/04/2024 9:32 AM EDT Yareli Zaragoza [facility] BLOOD ORDERABLES Denisse l Result Performing Organization Address [facility]/ZIP Co de Phone Number [facility] [address] * (ABNORMAL) Post Kidney Transplant Urine Culture (11/04/2024 8:46 AM EDT) Culture Result Enterococcus faecium, Vancomycin Resistant(A) [facility] Comment: 1,000- <10,000 cfu/mL Identified by [...] [facility] Co de Phone Number [facility] [address] [facility]. [address] * Protein / creatinine ratio, urine (11/04/2024 8:46 AM EDT) Creatinine, Urine 37.30 mg/dL 11/04/2024 2:55 PM EDT [facility] Comment:Reference range not established for this test. Total Protein, Ur 42 mg/dL 11/04/2024 2:55 PM EDT [facility] Comment:Reference range not established for this test. Prot/Creat Ratio, Ur 1.13 ratio 11/04/2024 2:55 PM EDT [facility] Urine 11/04/2024 8:46 AM EDT 11/04/2024 9:32 AM EDT Yareli Zaragoza CNP URINE ORDERABLES Final Re sult Performing Organization Address [facility]/ZIP Co de Phone Number [facility] [address] [facility]. [address] * (ABNORMAL) Urinalysis w/Rfl to Microscopic (11/04/2024 8:46 AM EDT) Color, UA Straw Yellow,Straw 11/04/2024 10:07 AM EDT [facility] Clarity, UA Clear Clear 11/04/2024 10:07 AM EDT [facility] Specific [place], UA 1.012 1.005 - 1.035 11/04/2024 10:07 AM EDT [facility] pH, UA 6.5 5.0 - 8.0 11/04/2024 10:07 AM EDT [facility] Protein, UA Trace(A) Negative mg/dL 11/04/2024 10:07 AM EDT [facility] Glucose, UA Negative Negative mg/dL 11/04/2024 10:07 AM EDT [facility] Ketones, UA Negative Negative mg/dL 11/04/2024 10:07 AM EDT [facility] Bilirubin, UA Negative Negative 11/04/2024 10:07 AM EDT [facility] Blood, UA Large(A) Negative 11/04/2024 10:07 AM EDT [facility] Nitrite, UA Negative Negative 11/04/2024 10:07 AM EDT [facility] Urobilinogen, UA <2.0 0.2 - 1.9 mg/dL 11/04/2024 10:07 AM EDT [facility] Leukocyte Esterase, UA Negative Negative 11/04/2024 10:07 AM EDT [facility] RBC, UA >100(H) 0 - 3 /HPF 11/04/2024 10:07 AM EDT [facility] WBC, UA 2 0 - 5 /HPF 11/04/2024 10:07 AM EDT [facility] Bacteria, UA Rare(A) None Seen /HPF 11/04/2024 10:07 AM EDT [facility] Hyaline Casts, UA 3(H) 0 - 2 /LPF 11/04/2024 10:07 AM T [facility] Urine 11/04/2024 8:46 AM EDT 11/04/2024 9:33 AM EDT Yareli Zaragoza DIRECTOR OF PLANNING URINE ORDERABLES Final Re sult [facility] [address] [place] [address], [facility] documented in this encounter Visit Diagnoses [...] documented as of this encounter Care Teams Learning Engineer Relationship Specialty Start Date End Date Enedina Mcguire NP [address] [place] [address] PCP - General Internal Medicine 10/05/24 Maureen Pantoja, ЮЛИЯ Txp Post Coordinator Transplant Hepatology 10/28/24 documented as of this encounter
--- OUTSIDE RECORDS SUMMARY | 2024-11-11 08:50 | XMS_ITS | Encounter Summary ---
Author Organization [facility] Address [facility] [place] [address] Care Team Providers Care Coal Inspector Name Role Phone Enedina Mcguire NP Primary Care Provider + [phone] Maureen Pantoja RN Unavailable Unavail able Source [...] release of HIV test results or diagnoses. [id number] Reason for Visit * Reason Comments Labs Only Encounter Details Date Type Department Care Team (Late st Contact Info) Description 11/11/2024 8:50 AM EDT Specimen [facility] Outreach Lab [facility] [place] [address] Harvey Domínguez III, MD [facility] [address] [place] [address] Liver replaced by transplant ([facility]); Immunosuppressive management encounter following liver transplant ([facility]); Kidney transplant recipient Social History Tobacco Use [...] the past 12 months has th e [employer], oil, or water company threatened to shut [...] living in a chcf (including now)? No 10/29/2024 Yearly Questionnaire Answer [...] - 2.5 mg/dL 11/11/2024 10:51 AM EDT [facility] Plasma 11/11/2024 9:13 AM EDT 11/11/2024 10:19 AM EDT Caron Santos CNP LAB BLOOD ORDERABLES Denisse l Result Performing Organization Address [facility] Co de Phone Number [facility] [address] [place] [address]. [address] * (ABNORMAL) Post Kidney Transplant Urine Culture (11/11/2024 9:13 AM EDT) Culture Result Enterococcus faecium(A) [facility] Comment: <1,000 cfu/mL Identified by MALDI-TOF MS No Further Workup Midstream Urine URINE SPECIMEN / Unknown 11/11/2024 9:13 AM EDT 11/11/2024 10:17 AM EDT Caron Santos REFINERY TECHNICIAN MICROBIOLOGY - GENERAL OR DERABLES Final Result Performing Organization Address [facility] de Phone Number [facility] [address] [place] [address]. [address] * Protein / creatinine ratio, urine (11/11/2024 9:13 AM EDT) Creatinine, Urine 71.40 mg/dL 11/11/2024 10:38 AM EDT [facility] Comment:Reference range not established for this test. Total Protein, Ur 28 mg/dL 11/11/2024 10:38 AM EDT [facility] Comment:Reference range not established for this test. Prot/Creat Ratio, Ur 0.39 ratio 11/11/2024 10:38 AM EDT [facility] Urine 11/11/2024 9:13 AM EDT 11/11/2024 10:12 AM EDT Caron Santos CNP URINE ORDERABLES Final Re sult Performing Organization Address City/[facility]/ZIP Co de Phone Number [facility] [address] * (ABNORMAL) Urinalysis w/Rfl to Microscopic (11/11/2024 9:13 AM EDT) Color, UA Straw Yellow,Straw 11/11/2024 10:36 AM EDT [facility] Clarity, UA Clear Clear 11/11/2024 10:36 AM EDT [facility] Specific [place], UA 1.015 1.005 - 1.035 11/11/2024 10:36 AM EDT [facility] pH, UA 6.0 5.0 - 8.0 11/11/2024 10:36 AM EDT [facility] Protein, UA Negative Negative mg/dL 11/11/2024 10:36 AM EDT [facility] Glucose, UA Negative Negative mg/dL 11/11/2024 10:36 AM EDT [facility] Ketones, UA Negative Negative mg/dL 11/11/2024 10:36 AM EDT [facility] Bilirubin, UA Negative Negative 11/11/2024 10:36 AM EDT [facility] Blood, UA Small(A) Negative 11/11/2024 10:36 AM EDT [facility] Nitrite, UA Negative Negative 11/11/2024 10:36 AM EDT [facility] Urobilinogen, UA <2.0 0.2 - 1.9 mg/dL 11/11/2024 10:36 AM EDT [facility] Leukocyte Esterase, UA Negative Negative 11/11/2024 10:36 AM EDT [facility] RBC, UA 13(H) 0 - 3 /HPF 11/11/2024 10:36 AM EDT [facility] WBC, UA 4 0 - 5 /HPF 11/11/2024 10:36 AM EDT [facility] Urine 11/11/2024 9:13 AM EDT 11/11/2024 10:10 AM EDT us Caron Santos REFINERY TECHNICIAN URINE ORDERABLES Final Re sult [facility] [address] * (ABNORMAL) Differential (11/11/2024 9:13 AM EDT) Neutrophils Relative 69.3 40.0 - 80.0 % 11/11/2024 10:31 AM EDT [facility] Lymphocytes Relative 17.6 15.0 - 45.0 % 11/11/2024 10:31 AM EDT [facility] Monocytes Relative 8.5 0.0 - 12.0 % 11/11/2024 10:31 AM EDT [facility] Eosinophils Relative 2.0 0.0 - 8.0 % 11/11/2024 10:31 AM EDT [facility] Basophils Relative 2.6(H) 0.0 - 1.0 % 11/11/2024 10:31 AM EDT [facility] nRBC 0 0 - 0 /100 WBC 11/11/2024 10:31 AM EDT [facility] Neutrophils Absolute 4,920 1,520 - 8,640 /uL 11/11/2024 10:31 AM EDT [facility] Lymphocytes Absolute 1,250 570 - 4,860 /uL 11/11/2024 10:31 AM EDT [facility] Monocytes Absolute 604 0 - 1,296 /uL 11/11/2024 10:31 AM EDT [facility] Eosinophils Absolute 142 0 - 864 /uL 11/11/2024 10:31 AM EDT [facility] Basophils Absolute 185(H) 0 - 108 /uL 11/11/2024 10:31 AM EDT [facility] Whole Blood 11/11/2024 9:13 AM EDT 11/11/2024 10:19 AM EDT Narrative [facility] - 11/11/2024 10:31 AM EDT Standing orders to be drawn: Every Sunday and before 9am and prior to patient taking morning medications. Liver Transplant Fax results to [phone] Call Critical results to [phone] us Harvey Domínguez III, MD LAB BLOOD ORDERABLE S Final Result [facility] [address] [place] [facility], [facility] * (ABNORMAL) CBC (11/11/2024 9:13 AM EDT) WBC 7.1 3.8 - 10.8 10E3/uL 11/11/2024 10:31 AM EDT [facility] RBC 3.42(L) 4.20 - 5.80 10E6/uL 11/11/2024 10:31 AM EDT [facility] Hemoglobin 10.6(L) 13.2 - 17.1 g/dL 11/11/2024 10:31 AM EDT [facility] Hematocrit 31.3(L) 38.5 - 50.0 % 11/11/2024 10:31 AM EDT [facility] MCV 91.5 80.0 - 100.0 fL 11/11/2024 10:31 AM EDT [facility] MCH 31.0 27.0 - 33.0 pg 11/11/2024 10:31 AM EDT [facility] MCHC 33.8 32.0 - 36.0 g/dL 11/11/2024 10:31 AM EDT [facility] RDW 20.5(H) 11.0 - 15.0 % 11/11/2024 10:31 AM EDT [facility] Platelets 308 140 - 400 10E3/uL 11/11/2024 10:31 AM EDT [facility] MPV 6.1(L) 7.5 - 11.5 fL 11/11/2024 10:31 AM EDT [facility] Whole Blood 11/11/2024 9:13 AM EDT 11/11/2024 10:19 AM EDT Narrative [facility] - 11/11/2024 10:31 AM EDT Standing orders to be drawn: Every Sunday and before 9am and prior to patient taking morning medications. Liver Transplant Fax results to [phone] Call Critical results to [phone] us Harvey Domínguez III, MD LAB BLOOD ORDERABLE S Final Result [facility] [address] [place] [address], [facility] * (ABNORMAL) Renal Function Panel w/EGFR (11/11/2024 9:13 AM EDT) Sodium 141 133 - 146 mmol/L 11/11/2024 10:51 AM EDT [facility] Potassium 4.6 3.5 - 5.3 mmol/L 11/11/2024 10:51 AM EDT [facility] Chloride 108 98 - 110 mmol/L 11/11/2024 10:51 AM EDT [facility] CO2 24 21 - 33 mmol/L 11/11/2024 10:51 AM EDT [facility] Anion Gap 9 3 - 16 mmol/L 11/11/2024 10:51 AM EDT [facility] BUN 27(H) 7 - 25 mg/dL 11/11/2024 10:51 AM EDT [facility] Creatinine 1.14 0.60 - 1.30 mg/dL 11/11/2024 10:51 AM EDT [facility] Glucose 97 70 - 100 mg/dL 11/11/2024 10:51 AM EDT [facility] Calcium 8.6 8.6 - 10.3 mg/dL 11/11/2024 10:51 AM EDT [facility] Phosphorus 4.4 2.1 - 4.7 mg/dL 11/11/2024 10:51 AM EDT [facility] Albumin 3.8 3.5 - 5.7 g/dL 11/11/2024 10:51 AM EDT [facility] Osmolality, Calculated 297 278 - 305 mOsm/kg 11/11/2024 10:51 AM EDT [facility] EGFR 83 11/11/2024 10:51 AM EDT [facility] Comment:As of 2021, the [...] morning medications. Liver Transplant Fax results to [phone] Call Critical results to [phone] DO NOT REPLACE RENAL PANEL or HEPATIC FUNCTION PANEL w/ CMP, BMP or HEPATIC PROFILE us Harvey Domínguez III, MD LAB BLOOD ORDERABLE S Final Result [facility] [address] [place] [address], [facility] * (ABNORMAL) Hepatic Function Panel (11/11/2024 9:13 AM EDT) Total Bilirubin 1.0 0.0 - 1.5 mg/dL 11/11/2024 10:51 AM EDT [facility] Bilirubin, Direct 0.39 0.00 - 0.40 mg/dL 11/11/2024 10:51 AM EDT [facility] AST 15 13 - 39 U/L 11/11/2024 10:51 AM EDT [facility] ALT 26 7 - 52 U/L 11/11/2024 10:51 AM EDT [facility] Alkaline Phosphatase 125 36 - 125 U/L 11/11/2024 10:51 AM EDT [facility] Total Protein 5.9(L) 6.4 - 8.9 g/dL 11/11/2024 10:51 AM EDT [facility] Albumin 3.8 3.5 - 5.7 g/dL 11/11/2024 10:51 AM EDT [facility] Bilirubin, Indirect 0.61 0.00 - 1.10 mg/dL 11/11/2024 10:51 AM EDT [facility] Plasma 11/11/2024 9:13 AM EDT 11/11/2024 10:19 AM EDT Narrative [facility] - 11/11/2024 10:51 AM EDT Standing orders to be drawn: Every Sunday and before 9am and prior to patient taking morning medications. Liver Transplant Fax results to [phone] Call Critical results to [phone] DO NOT REPLACE RENAL PANEL or HEPATIC FUNCTION PANEL w/ CMP, BMP or HEPATIC PROFILE Harvey Domínguez III, MD LAB BLOOD ORDERABLE S Final Result Performing Organization Address City/[facility] Co de Phone Number [facility] [address] [facility]. [address] * Tacrolimus level (11/11/2024 9:13 AM EDT) [facility] Tacrolimus (LC-MS) 10.4 3.0 - 15.0 ng/mL 11/11/2024 1:22 PM EDT [facility] Comment:Performed via liquid chromatography tandem mass spectrometry. Detection limit: 1 ng/mL. Individual target concentrations may vary due to target organ and time after transplant. This test has been developed and its performance characteristics determined by [facility] which is certified under the [...] AM EDT 11/11/2024 10:19 AM EDT Narrative [facility] - 11/11/2024 1:22 PM EDT Standing orders to be drawn: Every Sunday and before 9am and prior to patient taking morning medications. Liver Transplant Fax results to [phone] Call Critical results to [phone] Harvey Domínguez III, MD LAB BLOOD ORDERABLE S Final Result Performing Organization Address City/[facility]/ZIP Co de Phone Number [facility] [address] documented in this encounter Visit Diagnoses [...] as of this encounter Care Teams Coal Inspector Relationship Specialty Start Date End Date Enedina Mcguire NP [address] [place] [address] PCP - General Internal Medicine 10/05/24 Maureen Pantoja, RN Txp Post Coordinator Transplant Hepatology 10/28/24 documented as of this encounter
--- OUTSIDE RECORDS SUMMARY | 2024-11-11 09:30 | XMS_ITS | Encounter Summary ---
Author Organization [facility] Address [address] [place] [address] Care Team Providers Care Automatic Dispenser Mechanic Name Role Phone Enedina Mcguire NP Primary Care Provider + [phone] Maureen Pantoja RN Unavailable Unavail able Source [...] release of HIV test results or diagnoses. [id number] Health Encounter Details Date Type Department Care Team (Late st Contact Info) Description 11/11/2024 9:30 AM EDT Office Visit [facility] Psychiatry Transplant at [facility] [address] [facility] [address] [place] [address] Craig Warren PsyD [address] [facility] [address] [place] [address] PTSD (post-traumatic stress disorder) (Primary [...] In the past 12 months has th [employer], [employer] or [employer] threatened to shut off services in [...] alcohol and CKD IIIb/IV. Seen by this rewriter for pre-surgical evaluation. PMH includes PTSD and [...] documented as of this encounter Care Teams Automatic Dispenser Mechanic Relationship Specialty Start Date End Date Enedina Mcguire NP [address] [place] [address] PCP - General Internal Medicine 10/05/24 Maureen Pantoja, RN Txp Post Coordinator Transplant Hepatology 10/28/24 documented as of this encounter
--- OUTSIDE RECORDS SUMMARY | 2024-11-11 10:00 | XMS_ITS | Encounter Summary ---
Author Organization [facility] Address [address] [place] [address] Care Team Providers Care Mud Jack Nozzle Worker Name Role Phone Enedina Mcguire NP Primary Care Provider + [phone] Maureen Pantoja RN Unavailable Unavail able Source [...] release of HIV test results or diagnoses. [id number] Reason for Visit * Reason Comments Liver Transplant Follow-up Encounter Details Date Type Department Care Team (Late st Contact Info) Description 11/11/2024 10:00 AM EDT Office Visit [facility] Liver Transplant at [place] [address] [place] [address] Cosmo Pacheco MD [address] [place], [place] [address] [place] [address] Harvey Domínguez III, MD [address] [place] [address] 3200 [place] [address] Encounter for therapeutic drug monitoring [...] the past 12 months has th e [employer], [employer], oil, or water company threatened to [...] 12 units lancets (ACCU-CHEK SOFTCLIX LANCETS) [facility] Use to test blood sugar [...] times a day. naloxone (NARCAN) 4 mg/actuation [place] Apply 1 spray in one nostril if [...] Nutrition: patient continues close f/u w/ transplant funnel setter. - Bone health: Vit D level to be drawn ~POD#90. - Labs: Labs (CBC w/ diff, renal panel, liver panel, tacro level) twice a week. Lipid panel, [id number] Vit D level to be drawn at POD#90, HgbA1C and Vit D level to be drawn at POD#180. - Follow up: RTC 2 weeks Kemar Sahni MD, Fellow, Multiorgan Abdominal Transplant Surgery. [facility]. [1] Allergies Allergen Reactions Adhesive [...] documented as of this encounter Care Teams Mud Jack Nozzle Worker Relationship Specialty Start Date End Date Enedina Mcguire NP [address] [place] [address] PCP - General Internal Medicine 10/05/24 Maureen Pantoja, RN Txp Post Coordinator Transplant Hepatology 10/28/24 documented as of this encounter
--- OUTSIDE RECORDS SUMMARY | 2024-11-11 10:30 | XMS_ITS | Encounter Summary ---
Author Organization [facility] Address [address] [place] [address] Care Team Providers Care Body Former Name Role Phone Enedina Mcguire NP Primary Care Provider [phone] Maureen Pantoja RN Unavailable Unavail able Source [...] release of HIV test results or diagnoses. [id number] Reason for Visit * Reason Comments Kidney Transplant Follow-up Encounter Details Date Type Department Care Team (Late st Contact Info) Description 11/11/2024 10:30 AM EDT Office Visit [facility] Liver Transplant at [facility] [address] [facility] [address] [place] [address] Unknown, Attending Provider Seble Colon [address] [facility], [facility] [address] [place] [address] Kidney replaced by transplant (Primary [...] Answer (07/14/2024) Received from [facility] [place] of Occupational Health - Occupational Stress Questionnaire Feeling of Stress : Patient unable to answer Social Connections: Patient Unable To Answer (07/14/2024) Received from [facility] Social Connection and Isolation Panel [NHANES] Frequency of Communication with Friends and Family: Patient unable to answer Frequency of Social Gatherings with Friends and Family: Patient unable to answer Attends Roman Catholic Services: Patient unable to answer Active Member [...] Lastdose 11/26/24 blood sugar diagnostic (GLUCOSE BLOOD) [facility] Use to test blood sugar up to 4 times a day. blood-glucose meter (TRUE METRIX GLUCOSE METER) [facility] Use to test blood [...] = 12 units lancets (ACCU-CHEK SOFTCLIX LANCETS) [facility] Use to test blood [...] times a day. naloxone (NARCAN) 4 mg/actuation [place] Apply 1 spray in one nostril if [...] Results Component Value Date PTH 36.0 10/25/2024 [id number] 7.1 (L) 10/08/2024 Hemoglobin A1C: Lab Results [...] as of this encounter Care Teams Body Former Relationship Specialty Start Date End Date Enedina Mcguire NP [address] [place] [address] PCP - General Internal Medicine 10/05/24 Maureen Pantoja, RN Txp Post Coordinator Transplant Hepatology 10/28/24 documented as of this encounter
--- OUTSIDE RECORDS SUMMARY | 2024-11-25 09:00 | XMS_ITS | Encounter Summary ---
Author Organization [facility] Address [address] [place] [address] Care Team Providers Care Voicer Name Role Phone Enedina Mcguire NP Primary Care Provider + [phone] Maureen Pantoja RN Unavailable Unavail able Source [...] release of HIV test results or diagnoses. [id number] Health Encounter Details Date Type Department Care Team (Late st Contact Info) Description 11/25/2024 9:00 AM EDT Procedure visit [facility] Urology at [place] [facility] [address] [facility] [address] [place] [address] Julieta Rogers PA 222 [facility] [address] [place] [address] Retained ureteral stent of transplanted kidney ([facility]-HCC) (Primary Dx) Social History Tobacco Use Types [...] the past 12 months has th e [employer], [employer], oil, or water company threatened to shut [...] Answer Date Recorded PHQ-2 Total Score 0 11/25/2024 Hunger Vital Sign Answer Date Recorded Within [...] as of this encounter Progress Notes * Lori Wells MA - 11/25/2024 9:00 AM EDT Disposable Scope Used No Cystoscope used for procedure: Flex Uro Loaner 12 [facility] Urology Flexible Cystoscope Log Cystoscope Label Serial Number Model Flex Uro 1 [id number] Olympus CYF-VHR Flex Uro 2 [id number] Olympus CYF Type V2R Flex Uro 3 [id number] Olympus CYF Type V2R Flex Uro 4 [id number] Olympus CYF Type V2R Flex Uro 5 [id number] Olympus CYF Type V2R Flex Uro 6 2717320 Olympus CYF Type V2R Flex Uro 7 [id number] CYF VHR Flex Uro 8 9657590 CYF VHR Flex Uro 9 [id number] CYF VHR Flex Uro 10 [id number] CYF VHR Flex Uro 11 [id number] CYF VHR Flex Uro 12 [id number] CYF VHR Uro Loaner 12 [id number] CYF VHR Uro Loaner 13 [id number] CYF VHR Uro Loaner 14 [id number] CYF VHR * NAA Merida - 11/25/2024 9:00 AM EDT Preoperative Diagnosis: Retained ureteral stent Postoperative Diagnosis: Retained ureteral stent Procedure Performed: Cystoscopy, stent removal Brief Clinical History: Mr. Anderson is a 39 y.o. male s/p renal and liver transplant. Physician: NAA MERIDA Procedure in Detail: The patient signed an informed consent. The patient was placed in the supine position. Genitalia was prepped and draped in the usual sterile fashion. Intraurethral anesthetic was administered. Flexible cystoscopy was performed today. Urethral stricture was absent. Prostate non-obstructive. Limited c ystoscopy did not reveal any large bladder tumors. Stent was grasped using alligator graspers and pulled out in entirety. Patient tolerated well. Cystoscopic Findings: indwelling stent Assessment: Retained ureteral stent Plan: Stent was removed without complications Follow up as needed NAA MERIDA documented in this encounter Plan of Treatment Not on file documented as of this encounter Visit Diagnoses Diagnosis Retained ureteral stent of transplanted kidney (CMS-HCC)- Primary documented in this encounter Administered Medications Inactive Administered Medications - up to 3 most recent administrations Medication Order MAR Action Action Date Dose Rate Site lidocaine HCL (XYLOCAINE) 2 % JelP 10 mL 10 mL, Mucous Membrane, Once, On Tu11/25/24 at 0900, For 1 doseIndications:Retained ureteral stent of transplanted kidney (CMS-HCC) Given 11/25/2024 9:19 AM EDT 10 mLs documented in this encounter Additional Health Concerns Infection Onset Date Last Indicated Resolved Time 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
--- OUTSIDE RECORDS SUMMARY | 2024-11-25 10:20 | XMS_ITS | Encounter Summary ---
Author Organization [facility] Address [address] [place] [address] Care Team Providers Care Group Managing Director Name Role Phone Enedina Mcguire NP Primary Care Provider + [phone] Alicia Rankin RN Unavailable Unavail able Source Comments This [...] release of HIV test results or diagnoses. [id number] Reason for Visit * Reason Comments Liver Transplant Follow-up Encounter Details Date Type Department Care Team (Late st Contact Info) Description 11/25/2024 10:20 AM EDT Office Visit [facility] Liver Transplant at [id number] [place] [address] Lydia Sanchez MD [address] [place] [address] Liver[place] [address] Encounter for therapeutic drug monitoring (Primary Dx); S/P liver transplant (CMS-HCC); Hypomagnesemia; Kidney transplant recipient; Hypertension, unspecified type; Gastroesophageal reflux disease, unspecified whether esophagitis present; Abdominal pain, unspecified abdominal location Social History [...] the past 12 months has th e [employer], [employer], oil, or water company threatened to shut [...] Sign Reading Time Taken Comments Blood Pressure 130/81 11/25/2024 10:38 AM EDT Pulse 91 11/25/2024 10:38 AM EDT Temperature 36.5 C (97.7 F) 11/25/2024 10:38 AM EDT Respiratory Rate 16 11/25/2024 10:38 AM EDT Oxygen Saturation 100% 11/25/2024 10:38 AM EDT Inhaled Oxygen Concentration 100% 11/25/2024 1 0:38 AM EDT Weight 94.5 kg (208 lb 6.4 oz) 11/25/2024 10:38 AM EDT Height 193 cm (6' 4 ) 11/25/2024 10:38 AM EDT Body Mass Index 25.37 11/25/2024 10:38 AM EDT documented in this encounter Patient Instructions * Patient Instructions* Isha Morocho RN - 11/25/2024 10:20 AM EDT - decrease tacrolimus to 5 and 6 - stop torsemide - stop fluconazole - stop eliquis - keep cellcept, - taper prednisone to 10 on Wednesday 11/29 - repeat labs 11/27 - follow up in 2 weeks with liver and kidney documented in this encounter Progress Notes * Alicia Rankin RN - 11/25/2024 10:20 AM EDTAddended by: ALICIA RANKIN on: 11/26/2024 06:48 AM Modules accepted: Orders * Trinidad Godinez MD - 11/25/2024 10:20 AM EDT Transplant Hepatology Follow Up HPI: [...] ADLs that doesn't involve straining his core. Stopped diuretics dose per providers recs. Ale out today. Current IS: tac 10/17, pred 15 daily, cellcept 500 BID. ROS: The following [...] surgical scar, active bowel sounds, no hernia, ale in place Neuro: Awake, alert, oriented x [...] BLOOD 9.9 Radiology: Assessment and Plan: 39yo, POD#30 from [facility] for ETOH cirrhosis and HRS. Post operative complications as noted above. - Graft function:excellent - Immune suppression: most recent tacro level 10.4.. Switch tacrolimus 6 BID to 5+6 and Cellcept 500 mg BID and prednisone 15 mg daily. Change to 10 mg daily Tuesday 12/05 - HCC surveillance: Patient is categorized as [...] torsemide to 10 mg daily - Wound: ale in place - Caprini score 10 - eliquis 30 days from start date: 11/25/2024 - Psychosocial: Patient w/ h/o alcohol abuse. - Pain: high narcotic requirement. Discharged on 2 mg dilaudid q6h. - Nutrition: patient continues close f/u w/ transplant school cafeteria cook. - Bone health: Vit D level to be drawn ~POD#90. - Labs: Labs (CBC w/ diff, renal panel, liver panel, tacro level) twice a week. Lipid panel, [id number] Vit D level to be drawn at POD#90, HgbA1C and Vit D level to be drawn at POD#180. - Follow up: RTC 2 weeks Trinidad Godinez MD, Fellow, Multiorgan Abdominal Transplant Surgery. [facility]. [1] Allergies Allergen Reactions Adhesive Itching and Rash Tegaderm adhesive on Ivs, pt states its tolerable Duloxetine Other (See Comments) Became Manic Cosigned by Lydia Sanchez MD at 11/25/2024 2:25 PM EDT Associated attestation - Lydia Sanchez MD - 11/25/2024 2:25 PM EDT I saw and evaluated the patient, and discussed with the fellow. I agree with the fellow???s findings and plan as documented in the fellow???s note. Immunosuppression reviewed and discussed with the fellow. Lydia Sanchez MD PhD Transplant Surgery * Isha Morocho RN - 11/25/2024 10:20 AM EDT After visit summary including patient instructions reviewed with patient. Labs twice per week. Follow up in 2 weeks. [place] out today. Stop fluconazole, eliquis, and torsemide. Decrease FK to 5/6 mg. Decrease prednisone on 11/29 to 10 mg daily. Checked with patient to see if prescription refills and/or lab orders were needed. Updated preferred pharmacy and preferred lab information in patient demographics. Care coordinated with other team members and other medical providers as needed. Patient presents with the following needs: seeing renal today as well documented in this encounter Plan of Treatment Not on file documented as of this encounter Visit Diagnoses Diagnosis Encounter for therapeutic drug monitoring- Primary S/P liver transplant ([facility]) Hypomagnesemia Disorders of magnesium metabolism Kidney transplant recipient Hypertension, unspecified type Gastroesophageal reflux disease, unspecified whether esophagitis present Abdominal pain, unspecified abdominal location documented in this encounter Additional Health Concerns Infection Onset Date Last Indicated Resolved Time 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
--- OUTSIDE RECORDS SUMMARY | 2024-11-25 10:50 | XMS_ITS | Encounter Summary ---
Author Organization [facility] Address [address] [place] [address] Care Team Providers Care Party Plan Sales Agent Name Role Phone Enedina Mcguire NP Primary Care Provider + [phone] Maureen Pantoja RN Unavailable Unavail able Source [...] release of HIV test results or diagnoses. [id number] Reason for Visit * Reason Comments Liver Transplant Follow-up Encounter Details Date Type Department Care Team (Late st Contact Info) Description 11/25/2024 10:50 AM EDT Office Visit [facility] Liver Transplant at [address] [place] [address] Leisa Juarez MD [address] [place] [address] 2nd [place] [address] Seble Colon [facility] [address] [place] [address] NADIYA (acute kidney injury) ([facility]) (Primary Dx); Kidney replaced by transplant; [...] the past 12 months has th e [employer], [employer], oil, or water company threatened to shut [...] Hypertension Other hyperlipidemia 07/26/2024 Renal cell carcinoma ([facility]) Thrombocytopenia ([facility]) Thyroid disease Surgical History: Past Surgical [...] Low Risk (07/09/2024) Received from [facility] Overall Financial Resource Strain (CARDIA) Difficulty of [...] No Physical Activity: Unknown (07/14/2024) Received from [facility] Exercise Vital Sign Days of Exercise per Week: Patient unable to answer Minutes of Exercise per Session: Not on file Stress: Patient Unable To Answer (07/14/2024) Received from [facility] [place] of Occupational Health - Occupational Stress Questionnaire Feeling of Stress : Patient unable to answer Social Connections: Patient Unable To Answer (07/14/2024) Received from [facility] Social Connection and Isolation Panel [NHANES] [...] day. blood-glucose meter (TRUE METRIX GLUCOSE METER) [facility] Use to [...] times a day. naloxone (NARCAN) 4 mg/actuation [place] Apply 1 spray in one nostril if [...] Results Component Value Date PTH 36.0 10/25/2024 [id number] 7.1 (L) 10/08/2024 Hemoglobin A1C: Lab Results [...] documented as of this encounter Care Teams Party Plan Sales Agent Relationship Specialty Start Date End Date Enedina Mcguire NP [address] [place], [place] [id number] PCP - General Internal Medicine 10/05/24 Maureen Pantoja, RN Txp Post Coordinator Transplant Hepatology 10/28/24 documented as of this encounter
--- OUTSIDE RECORDS SUMMARY | 2024-12-04 07:45 | XMS_ITS | Encounter Summary ---
Author Organization [facility] Address [address] [place] [address] Care Team Providers Care Ironworker Name Role Phone Enedina Mcguire NP Primary Care Provider + [phone] Maureen Pantoja RN Unavailable Unavail able Source [...] release of HIV test results or diagnoses. [id number] Health Encounter Details Date Type Department Care Team (Late st Contact Info) Description 11/27/2024 Chart Note [facility] Liver Transplant at [address] [place] [phone] Marlene Ro MA FK Pending 11/27 Labs [...] In the past 12 months has e [employer], gas, oil, or water [employer] threatened to shut off services in your [...] 5.0 g/dL Blood Narrative Resulting Agency Comment [facility] Result [facility] Provider LAB BLOOD ORDERABLES Denisse l Result * Protime-INR (11/27/2024 7:50 AM EDT) Pathologist [facility] INR 0.93 0.9 - 1.1 Plasma Narrative Resulting Agency Comment [facility] Result [facility] Provider LAB BLOOD ORDERABLES Denisse l Result * (ABNORMAL) CBC and differential (11/27/2024 7:50 AM EDT) [facility] Hemoglobin 10.2(A) 13.5 - 17.5 g/dL Hematocrit [...] 6.6 10^3/mL Blood Narrative Resulting Agency Comment [facility] Result [facility] Provider LAB BLOOD ORDERABLES Denisse l Result * Hepatic Function Panel (11/27/2024 7:50 AM EDT) Pathologist [facility] Bilirubin, Direct 0.4 Bilirubin, Indirect 0.1 Alkaline Phosphatase 149 U/L ALT 19 U/L AST 13 U/L Total Bilirubin 0.5 0.1 - 1.4 mg/dL Total Protein 6.4 6.4 - 8.2 g/dL Plasma Narrative Resulting Agency Comment [facility] us Historical Provider LAB BLOOD ORDERABLES Denisse l Result documented in this encounter Visit Diagnoses Not on filedocumented in this encounter Additional Health Concerns Infection Onset Date Last Indicated Resolved Time 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
--- OUTSIDE RECORDS SUMMARY | 2024-12-04 07:45 | XMS_ITS | Encounter Summary ---
Author Organization [facility] Address [address] [place] [address] Care Team Providers Care Camera Systems Engineer Name Role Phone Enedina Mcguire NP Primary Care Provider + [phone] Maureen Pantoja RN Unavailable Unavail able Source [...] release of HIV test results or diagnoses. [id number] Health Encounter Details Date Type Department Care Team (Late st Contact Info) Description 12/01/2024 Telephone [facility] Liver Transplant at [address] [place] [phone] Gladis Chishoml MA Social History Tobacco Use Types Packs/Day Years Used Date Smoking Tobacco: Former Cigarettes Smokeless Tobacco: Current Alcohol Use Standard Drinks/Week Comments Yes 0 (1 standard drink = 0.6 oz pure alcohol) History of alcohol abuse, reports no use in 3 week- typically endorses use as 4 glasses of wine a days Utilities Answer Date Recorded In the past 12 months has [employer], gas, oil, or water [employer] threatened to shut off services in your [...] have tried to fax his orders through [employer] but was unsuccessful. The plan is to send him a copy via but wanted confirmation that he had a way to print them out. * Gladis Chisholm MA - 12/01/2024 3:08 PM EDT Pt called to request that an order for a urinalysis be put in for him to get done at [facility]. Please advise. documented in this [...] as of this encounter Care Teams Camera Systems Engineer Relationship Specialty Start Date End Date Enedina Mcguire NP [address] [place] [address] PCP - General Internal Medicine 10/05/24 Maureen Pantoja, RN Txp Post Coordinator Transplant Hepatology 10/28/24 documented as of this encounter
--- OUTSIDE RECORDS SUMMARY | 2024-12-04 07:45 | XMS_ITS | Encounter Summary ---
Author Organization [facility] Address [address] [place] [address] Care Team Providers Care Tool Filer Hand Name Role Phone Enedina Mcguire NP Primary Care Provider + [phone] Maureen Pantoja RN Unavailable Unavail able Source [...] release of HIV test results or diagnoses. [id number] Health Encounter Details Date Type Department Care Team (Late st Contact Info) Description 12/03/2024 Chart Note [facility] Liver Transplant at [address] [place] [phone] Marlene Ro MA FK, Urine culture pending Social History Tobacco Use Types Packs/Day Years Used Date Smoking Tobacco: Former Cigarettes Smokeless Tobacco: Current Alcohol Use Standard Drinks/Week Comments Yes 0 (1 standard drink = 0.6 oz pure alcohol) History of alcohol abuse, reports no use in 3 week- typically endorses use as 4 glasses of wine a days Utilities Answer Date Recorded In the past 12 months has e [employer], gas, oil, or water [employer] threatened to shut off services in your [...] Procedure Name Priority Date/Time Associated Diagnosis Comments URINE PROTEIN, TOTAL, RANDOM (W/O CREATININE) Routine 12/02/2024 8:01 AM EDT HEPATIC FUNCTION PANEL Routine 12/02/2024 8:01 AM EDT CREATININE, URINE, RANDOM Routine 12/02/2024 8:01 AM EDT URINALYSIS W/RFL TO MICROSCOPIC Routine 12/02/2024 8:01 AM EDT CBC AND DIFFERENTIAL Routine 12/02/2024 8:01 AM EDT RENAL FUNCTION PANEL W/O EGFR Routine 12/02/2024 8:01 AM EDT documented in this encounter Results * (ABNORMAL) Renal Function Panel w/o EGFR (12/02/2024 8:01 AM EDT) Glucose 97 mg/dL BUN 29(A) 4 - 21 mg/dL CO2 25(A) 13 - 22 mmol/L Creatinine 0.80 0.6 - 1.3 mg/dL Potassium 4.4 3.4 - 5.3 mmol/L Sodium 136(A) 137 - 147 mmol/L Chloride 104 99 - 108 mmol/L Phosphorus 5.6(A) 2.5 - 4.9 mg/dL Calcium 9.6 8.7 - 10.7 mg/dL EGFR 107 mg/dL Albumin 3.9 3.5 - 5.0 g/dL Blood Narrative Resulting Agency Comment [facility] Historical Provider LAB BLOOD ORDERABLES Denisse l Result * Creatinine, urine, random (12/02/2024 8:01 AM EDT) Creatinine, Urine 48 Urine Narrative Resulting Agency Comment [facility] us Historical Provider URINE ORDERABLES Final Re sult * Urinalysis w/Rfl to Microscopic (12/02/2024 8:01 AM EDT) Glucose, UA Negative Negative Ketones, UA Negative Negative Blood, UA Negative Negative Bilirubin, UA Negative Negative Urobilinogen, UA Normal Normal Protein, UA Negative Negative Leukocyte Esterase, UA Negative Negative pH, UA 6.0 4.5 - 8.0 Specific [place], UA 1.010 1.005 - 1.030 Clarity, UA Clear Clear Color, UA Yellow Light Yellow, Yellow Urine Narrative Resulting Agency Comment [facility] Historical Provider URINE ORDERABLES Final Re sult * (ABNORMAL) CBC and differential (12/02/2024 8:01 AM EDT) Hemoglobin 10.2(A) 13.5 - 17.5 g/dL Hematocrit 31.6(A) 41 - 53 % RDW 16.9(A) 11.5 - 14.5 % Lymphocytes Absolute 1.5 / L Monocytes Absolute 0.4 / L Eosinophils Absolute 0.0 / L Basophils Absolute 0.1 / L Neutrophils Relative 66.7 46 - 78 % Lymphocytes Relative 24.7 18 - 52 % Monocytes Relative 6.5 3 - 10 % Eosinophils Relative 0.5 0 - 6 % Basophils Relative 0.8 0 - 3 % Neutrophils Absolute 4.0 / L MCH 29.8 26.0 - 34.0 pg MCHC 32.3 30 - 37 g/dL MCV 92.4 82.0 - 108.0 fL Platelets 144 K/ L RBC 3.42(A) 4.50 - 5.90 10^6/ L WBC 6.0 10^3/mL Blood Narrative Resulting Agency Comment [facility] Historical Provider LAB BLOOD ORDERABLES Denisse l Result * Urine Protein, Tot, Random (w/o Creat) (12/02/2024 8:01 AM EDT) Total Protein, Ur 10.0 Urine Narrative Resulting Agency Comment [facility] Historical Provider URINE ORDERABLES Final Re sult * (ABNORMAL) Hepatic Function Panel (12/02/2024 8:01 AM EDT) Bilirubin, Direct 0.5 Bilirubin, Indirect 0.2 Alkaline Phosphatase 109 U/L ALT 16 U/L AST 15 U/L Total Bilirubin 0.7 0.1 - 1.4 mg/dL Total Protein 6.0(A) 6.4 - 8.2 g/dL Plasma Narrative Resulting Agency Comment [facility] Historical Provider LAB BLOOD ORDERABLES Denisse l Result documented in this encounter Visit Diagnoses Not on filedocumented in this encounter Additional Health Concerns Infection Onset Date Last Indicated Resolved Time 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
--- OUTSIDE RECORDS SUMMARY | 2024-12-04 07:45 | XMS_ITS | Encounter Summary ---
Author Organization [facility] Address [address] [place] [address] Care Team Providers Care Radiologic Technician Name Role Phone Enedina Mcguire NP Primary Care Provider + [phone] Maureen Pantoja RN Unavailable Unavail able Source [...] release of HIV test results or diagnoses. [id number] Reason for Visit * Reason Comments Results Encounter Details Date Type Department Care Team (Riky st Contact Info) Description 11/27/2024 Telephone [facility] Liver Transplant at [address] [phone] Maureen Pantoja, RN Results Social [...] In the past 12 months has e [employer], gas, oil, or water [employer] threatened to shut off services in [...] documented as of this encounter Care Teams Radiologic Technician Relationship Specialty Start Date End Date Eendina Mcguire NP [address] [place] [address] PCP - General Internal Medicine 10/05/24 Maureen Pantoja, ЮЛИЯ Txp Post Coordinator Transplant Hepatology 10/28/24 documented as of this encounter
--- OUTSIDE RECORDS SUMMARY | 2024-12-04 07:45 | XMS_ITS | Encounter Summary ---
Author Organization [facility] Address [address] [place] [address] Care Team Providers Care Machine Plaster Mixer Name Role Phone Enedina Mcguire NP Primary Care Provider + [phone] Maureen Pantoja RN Unavailable Unavail able Source [...] release of HIV test results or diagnoses. [id number] Reason for Visit * Reason Comments Medication Refill Refill Request 1st A ttempt Encounter Details Date Type Department Care Team (Late st Contact Info) Description 10/21/2024 Refill [facility] Gastroenterology at [facility] Office [address] [place] [phone] Gerri Peterson MD [address] [place] [address] Social History Tobacco Use Types [...] In the past 12 months has [employer], gas, oil, or water [employer] threatened to shut off services in [...] as of this encounter Care Teams Machine Plaster Mixer Relationship Specialty Start Date End Date Enedina Mcguire NP [address] [place] [address] PCP - General Internal Medicine 10/05/24 Maureen Pantoja, ЮЛИЯ Txp Post Coordinator Transplant Hepatology 10/28/24 documented as of this encounter
--- OUTSIDE RECORDS SUMMARY | 2024-12-04 07:45 | XMS_ITS | Encounter Summary ---
Author Organization [facility] Address [address] [place] [address] Care Team Providers Care Packaging Sales Name Role Phone Enedina Mcguire NP Primary Care Provider + [phone] Maureen Pantoja RN Unavailable Unavail able Source [...] release of HIV test results or diagnoses. [id number] Reason for Visit * Reason Comments Medication Management Requesting RX for New Medication Encounter Details Date Type Department Care Team (Late st Contact Info) Description 10/21/2024 Telephone [facility] at [facility] [address] [place] [phone] Gerri Peterson MD [address] [place] [address] Medication Management (Requesting RX for [...] In the past 12 months has th [employer], oil, or [employer] threatened to shut off services in your [...] Pt called. States he was discharged from [facility] on 10/17 with instructions to contact PCP to start Rx Torsemide 20 mg one tablet a day. PCP is out of town and was advised by information systems audit manager in office to contact gastro MD to obtain Rx. Pt states he is retaining 30 pounds of fluid and needs MD to send a prescription or return call dali. Pt can be reached at [phone] documented in this encounter Plan of [...] documented as of this encounter Care Teams Packaging Sales Relationship Specialty Start Date End Date Enedina Mcguire NP [address] [place] [address] PCP - General Internal Medicine 10/05/24 Maureen Pantoja, RN Txp Post Coordinator Transplant Hepatology 10/28/24 documented as of this encounter
--- OUTSIDE RECORDS SUMMARY | 2024-12-04 07:45 | XMS_ITS | Encounter Summary ---
Author Organization [facility] Address [address] [place] [address] Care Team Providers Care Longwall Shearer Operator Name Role Phone Enedina Mcguire NP Primary Care Provider + [phone] Alicia Rankin RN Unavailable Unavail able Source [...] release of HIV test results or diagnoses. [id number] Health Encounter Details Date Type Department Care Team (Late st Contact Info) Description 12/02/2024 Telephone [facility] Liver Transplant at [address] [phone] Mitzy Gill MA Social History Tobacco Use Types Packs/Day Years Used Date Smoking Tobacco: Former Cigarettes Smokeless Tobacco: Current Alcohol Use Standard Drinks/Week Comments Yes 0 (1 standard drink = 0.6 oz pure alcohol) History of alcohol abuse, reports no use in 3 week- typically endorses use as 4 glasses of wine a days Utilities Answer Date Recorded In the past 12 months has e [employer], gas, oil, or water company threatened to [...] Progress Notes * Alicia Rankin RN - 12/02/2024 8:49 AM EDTAddended by: ALICIA RANKIN on: 12/02/2024 08:49 AM Modules accepted: Orders * Mitzy Gill MA - 12/02/2024 8:44 AM EDT Sharda from [facility] states Pt has called them and advised he is almost out of FK. [facility] is working on getting an overnight shipment out to Pt but needs to confirm dosing on script. Sharda also brought the Pt on the line with us. I confirmed we have a prescription that was written on 11/25/24 but it was sent to [facility], not [facility]. Pt states he would like it re-routed to [facility] so they can get this out to him. I advised Pt and Sharda that I would have prescription updated and routed to [facility]. No further needs atthis time. 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
--- OUTSIDE RECORDS SUMMARY | 2024-12-04 07:45 | XMS_ITS | Encounter Summary ---
Author Organization [facility] Address [address] [place] [address] Care Team Providers Care Tmh Teacher Name Role Phone Enedina Mcguire NP Primary Care Provider [phone] Source Comments This information has been disclosed [...] release of HIV test results or diagnoses. [id number] Health Encounter Details Date Type Department Care Team (Late st Contact Info) Description 10/17/2024 Chart Note [facility] Kidney Transplant at [address] [place] [phone] Anny Cote RN Social History Tobacco Use [...] Recorded In the past 12 months has [employer], gas, oil, or water [employer] threatened to [...] documented as of this encounter Care Teams Tmh Teacher Relationship Specialty Start Date End Date Enedina Mcguire NP [address] [place] [address] PCP - General Internal Medicine 10/05/24 documented as of this encounter
--- OUTSIDE RECORDS SUMMARY | 2024-12-04 07:46 | XMS_ITS | Encounter Summary ---
Author Organization [facility] Address [address] [place] [address] Care Team Providers Care Air Conditioning Installer Name Role Phone Enedina Mcguire NP Primary Care Provider [phone] Source Comments This information has been disclosed [...] release of HIV test results or diagnoses. [id number] Encounter Details Date Type Department Care Team (Late st Contact Info) Description 10/17/2024 Chart Note [facility] Kidney Transplant at [address] [place] [phone] Anny Cote, RN Copy of HLA [...] In the past 12 months has e [employer], gas, oil, or water [employer] threatened to shut off services in your [...] documented as of this encounter Care Teams Air Conditioning Installer Relationship Specialty Start Date End Date Enedina Mcguire NP [address] [place] [address] PCP - General Internal Medicine 10/05/24 documented as of this encounter
--- OUTSIDE RECORDS SUMMARY | 2024-12-04 07:46 | XMS_ITS | Encounter Summary ---
Author Organization [facility] Address [address] [place] [address] Care Team Providers Care Bath Tester Name Role Phone Enedina Mcguire NP Primary Care Provider + [phone] Maureen Pantoja RN Unavailable Unavail able Source [...] release of HIV test results or diagnoses. [id number] Health Encounter Details Date Type Department Care Team (Late st Contact Info) Description 11/10/[address] Orders [address] [facility] Liver Transplant at [address] [place] [phone] Maureen Pantoja, ЮЛИЯ Liver transplant recipient ([facility]) (Primary Dx); Kidney transplant recipient; Immunosuppressive management encounter following liver transplant ([facility]) Social History Tobacco Use Types Packs/Day Years Used Date Smoking Tobacco: Former Cigarettes Smokeless Tobacco: Current Alcohol Use Standard Drinks/Week Comments Yes 0 (1 standard drink = 0.6 oz pure alcohol) History of alcohol abuse, reports no use in 3 week- typically endorses use as 4 glasses of wine a days Utilities Answer Date Recorded In the past 12 months has [employer], gas, oil, or water [employer] threatened to shut off services in your [...] documented as of this encounter Care Teams Bath Tester Relationship Specialty Start Date End Date Enedina Mcguire NP [address] [place] [address] PCP - General Internal Medicine 10/05/24 Maureen Pantoja RN Txp Post Coordinator Transplant Hepatology 10/28/24 documented as of this encounter
--- OUTSIDE RECORDS SUMMARY | 2024-12-04 07:46 | XMS_ITS | Encounter Summary ---
Author Organization [facility] Address [address] [place] [address] Care Team Providers Care Senior Marketing Engineer Name Role Phone Enedina Mcguire NP Primary Care Provider + [phone] Maureen Pantoja RN Unavailable Unavail able Source [...] release of HIV test results or diagnoses. [id number] Health Encounter Details Date Type Department Care Team (Late st Contact Info) Description 11/07/2024 Chart Note [facility] Liver Transplant at [address] [place] [phone] Marlene Ro MA FK Pending Social History [...] Recorded In the past 12 months has [employer], gas, oil, or water [employer] threatened to shut off services in [...] 5.0 g/dL Blood Narrative Resulting Agency Comment [facility] Historical Provider LAB BLOOD ORDERABLES Denisse l [...] 7.5 10^3/mL Blood Narrative Resulting Agency Comment [facility] Historical Provider LAB BLOOD ORDERABLES Denisse l Result * (ABNORMAL) Hepatic Function Panel (11/06/2024 8:36 AM EDT) Pathologist [facility] Bilirubin, Direct 0.7 Bilirubin, Indirect 0.2 Alkaline Phosphatase 142 U/L ALT 59 U/L AST 24 U/L Total Bilirubin 0.9 0.1 - 1.4 mg/dL Total Protein 5.4(A) 6.4 - 8.2 g/dL Plasma Narrative Resulting Agency Comment [facility] Historical Provider LAB BLOOD ORDERABLES Denisse l Result documented in this encounter Visit Diagnoses Not on filedocumented in this encounter Additional Health Concerns Infection Onset Date Last Indicated Resolved Time 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
--- OUTSIDE RECORDS SUMMARY | 2024-12-04 07:46 | XMS_ITS | Encounter Summary ---
Author Organization [facility] Address [address] [place] [address] Care Team Providers Care Acting Instructor Name Role Phone Enedina Mcguire NP Primary Care Provider + [phone] Maureen Pantoja RN Unavailable Unavail able Source [...] release of HIV test results or diagnoses. [id number] Health Encounter Details Date Type Department Care Team (Late st Contact Info) Description 11/24/2024 Orders Only [facility] Liver Transplant at [address] [place] [address] Maureen Pantoja, RN Social History Tobacco Use [...] Recorded In the past 12 months has [employer], gas, oil, or water [employer] threatened to shut off services in your [...] documented as of this encounter Care Teams Acting Instructor Relationship Specialty Start Date End Date Enedina Mcguire NP [address] [place] [address] PCP - General Internal Medicine 10/05/24 Maureen Pantoja, ЮЛИЯ Txp Post Coordinator Transplant Hepatology 10/28/24 documented as of this encounter
--- OUTSIDE RECORDS SUMMARY | 2024-12-04 07:46 | XMS_ITS | Encounter Summary ---
Author Organization [facility] Address [address] [place] [address] Care Team Providers Care Data Analysis Intern Name Role Phone Enedina Mcguire NP Primary Care Provider [phone] Source Comments This information has been disclosed [...] release of HIV test results or diagnoses. [id number] Encounter Details Date Type Department Care Team (Late st Contact Info) Description 10/20/2024 Telephone [facility] Liver Transplant at [address] [phone] Mary Butler, RN Social History Tobacco Use [...] Recorded In the past 12 months has [employer], gas, oil, or water [employer] threatened to shut off services in your [...] Hep C donors. He'll also go to [facility] later today vs tomorrow morning for follow up MELD labs that I'll need in order to list him. All questions answered at this time. Lab orders faxed to [facility] at [phone] and emailed to patient. documented in this [...] as of this encounter Care Teams Data Analysis Intern Relationship Specialty Start Date End Date Enedina Mcguire NP [address] [place] [address] PCP - General Internal Medicine 10/05/24 documented as of this encounter
--- OUTSIDE RECORDS SUMMARY | 2024-12-04 07:46 | XMS_ITS | Encounter Summary ---
Author Organization [facility] Address [address] [place] [address] Care Team Providers Care Maintenance Manager Name Role Phone Enedina Mcguire NP Primary Care Provider [phone] Source Comments This information has been disclosed [...] release of HIV test results or diagnoses. [id number] Reason for Visit * Reason Comments Prescription Issue RX Clarification Req uest Encounter Details Date Type Department Care Team (Late st Contact Info) Description 10/20/2024 Telephone [facility] Gastroenterology at [facility] [address] [place] [phone] Gerri Peterson MD [address] [place] [address] Prescription Issue (RX Clarification Request [...] Recorded In the past 12 months has [employer], gas, oil, or water [employer] threatened to shut off services in your [...] to be filled Please return call to [phone]. documented in this encounter Plan of Treatment Not on file documented as of this encounter Visit Diagnoses Not on filedocumented in this encounter Additional Health Concerns Infection Onset Date Last Indicated Resolved Time C. difficile 09/09/2024 09/09/2024 10/27/2024 8:30 AM EDT Assessment Noted Time PHQ-9 Depression Total Score: 17 05/19/2 025 11:00 AM EDT documented as of this encounter Care Teams Maintenance Manager Relationship Specialty Start Date End Date Enedina Mcguire NP [address] [place] [address] PCP - General Internal Medicine 10/05/24 documented as of this encounter
--- OUTSIDE RECORDS SUMMARY | 2024-12-04 07:46 | XMS_ITS | Encounter Summary ---
Author Organization [facility] Address [address] [place] [address] Care Team Providers Care Chief Ii Dispatcher Name Role Phone Enedina Mcguire NP Primary Care Provider + [phone] Maureen Pantoja RN Unavailable Unavail able Source [...] release of HIV test results or diagnoses. [id number] Reason for Visit * Reason Comments Results Encounter Details Date Type Department Care Team (Late st Contact Info) Description 11/07/2024 Telephone [facility] Liver Transplant at [address] [phone] Maureen Pantoja, RN Results Social [...] In the past 12 months has e [employer], gas, oil, or water [employer] threatened to shut off services in your [...] documented as of this encounter Care Teams Chief Ii Dispatcher Relationship Specialty Start Date End Date Enedina Mcguire NP [address] [place] [address] PCP - General Internal Medicine 10/05/24 Maureen Pantoja, RN Txp Post Coordinator Transplant Hepatology 10/28/24 documented as of this encounter
--- OUTSIDE RECORDS SUMMARY | 2024-12-04 07:46 | XMS_ITS | Encounter Summary ---
Author Organization [facility] Address [facility] [place] [address] Care Team Providers Care Bench Worker Apprentice Name Role Phone Enedina Mcguire NP Primary Care Provider + [phone] Maureen Pantoja RN Unavailable Unavail able Source [...] release of HIV test results or diagnoses. [id number] Reason for Visit * Reason Comments After Hours Call Passing blood throug h stool states started this morning has had 3 bloody bowel movements kidney and liver txp done 2 weeks ago Encounter Details Date Type Department Care Team (Late st Contact Info) Description 11/09/2024 Telephone [facility] [address] [place] [address] Unknown, Attending Provider After Hours [...] Recorded In the past 12 months has [employer], gas, oil, or water [employer] threatened to shut off services in your [...] Caller to Patient and Callback: dionna anderson [phone] Patient of: liver txp txp team Nature of Call: Passing blood through stool states started this morning has had 3 bloody bowel movements kidney and liver txp done 2 weeks ago Print Binding And Finishing Worker Provider Contacted: del turner Time and Method of Contact: via cell phone 1133 am connected coordinator to dionna at 1135 am Advise Caller: If provider does not call back within 30 minutes, please call us back. ROUTE TELEPHONE NOTE - Follow Qgenda and/or Route Directly to Provider. COPY this note into [facility] Teams chat. 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
--- OUTSIDE RECORDS SUMMARY | 2024-12-04 07:46 | XMS_ITS | Encounter Summary ---
Author Organization [facility] Address [address] [place] [address] Care Team Providers Care Operation Agent Name Role Phone Enedina Mcguire NP Primary Care Provider + [phone] Maureen Pantoja RN Unavailable Unavail able Source [...] release of HIV test results or diagnoses. [id number] Health Encounter Details Date Type Department Care Team (Late st Contact Info) Description 11/25/2024 Social Work [facility] Liver Transplant at [address] [place] [phone] Kaylin Willard MSW Social History Tobacco Use [...] Recorded In the past 12 months has [employer], gas, oil, or water [employer] threatened to shut off services in your [...] AM 09/29/2024 11:00 AM 11/25/2024 3:00 PM [id number] Score MAGALYS-7 Total Score 17 13 4 Scores are not concerning for depression/anxiety. No further SW needs identified. 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
--- OUTSIDE RECORDS SUMMARY | 2024-12-04 07:46 | XMS_ITS | Encounter Summary ---
Author Organization [facility] Address [address] [place] [address] Care Team Providers Care Supervisor Abattoir Name Role Phone Enedina Mcguire NP Primary Care Provider + [phone] Maureen Pantoja RN Unavailable Unavail able Source [...] release of HIV test results or diagnoses. [id number] Reason for Visit * Reason Comments Medication Refill Refill Request 1st A ttempt Encounter Details Date Type Department Care Team (Late st Contact Info) Description 10/20/2024 Refill [facility] Gastroenterology at [facility] Office [address] [place] [phone] Gerri Peterson MD [address] [place] [address] Social History Tobacco Use Types Packs/Day Years Used Date Smoking Tobacco: Former Cigarettes Smokeless Tobacco: Current Alcohol Use Standard Drinks/Week Comments Yes 0 (1 standard drink = 0.6 oz pure alcohol) History of alcohol abuse, reports no use in 3 week- typically endorses use as 4 glasses of wine a days Utilities Answer Date Recorded In the past 12 months has [employer], gas, oil, or water [employer] threatened to shut off services in your [...] need filled today. PHARMACY & PHONE #: [facility] [address] [place], [place] [id number] [address] DATE OF LAST APPT: 09/02/2024 Gerri Peterson [...] as of this encounter Care Teams Supervisor Abattoir Relationship Specialty Start Date End Date Enedina Mcguire NP [address] [place] [address] PCP - General Internal Medicine 10/05/24 Maureen Pantoja, RN Txp Post Coordinator Transplant Hepatology 10/28/24 documented as of this encounter
--- OUTSIDE RECORDS SUMMARY | 2024-12-04 07:46 | XMS_ITS | Encounter Summary ---
Author Organization [facility] Address [address] [place] [address] Care Team Providers Care Lipstick Molder Name Role Phone Enedina Mcguire NP Primary Care Provider + [phone] Maureen Pantoja RN Unavailable Unavail able Source [...] release of HIV test results or diagnoses. [id number] Health Encounter Details Date Type Department Care Team (Late st Contact Info) Description 11/10/2024 Orders Only [facility] Liver Transplant at [address] [place] [address] Maureen Pantoja, RN Social History Tobacco Use [...] Recorded In the past 12 months has [employer], gas, oil, or water [employer] threatened to shut off services in your [...] documented as of this encounter Care Teams Lipstick Molder Relationship Specialty Start Date End Date Enedina Mcguire NP [address] [place] [address] PCP - General Internal Medicine 10/05/24 Maureen Pantoja, ЮЛИЯ Txp Post Coordinator Transplant Hepatology 10/28/24 documented as of this encounter
--- OUTSIDE RECORDS SUMMARY | 2024-12-04 07:46 | XMS_ITS | Encounter Summary ---
Author Organization [facility] Address [address] [place] [address] Care Team Providers Care Dog Sitter Name Role Phone Enedina Mcguire NP Primary Care Provider + [phone] Maureen Pantoja RN Unavailable Unavail able Source [...] release of HIV test results or diagnoses. [id number] Health Encounter Details Date Type Department Care Team (Late st Contact Info) Description 11/07/2024 Telephone [facility] Liver Transplant at [address] [phone] Marlene Ro MA Social History [...] Recorded In the past 12 months has [employer], gas, oil, or water [employer] threatened to shut off services in your [...] documented as of this encounter Care Teams Dog Sitter Relationship Specialty Start Date End Date Enedina Mcguire NP [address] [place] [address] PCP - General Internal Medicine 10/05/24 Maureen Pantoja, ЮЛИЯ Txp Post Coordinator Transplant Hepatology 10/28/24 documented as of this encounter
--- OUTSIDE RECORDS SUMMARY | 2024-12-04 07:46 | XMS_ITS | Encounter Summary ---
Author Organization [facility] Address [address] [place] [address] Care Team Providers Care Assembler Handbags Name Role Phone Enedina Mcguire NP Primary Care Provider + [phone] Maureen Pantoja RN Unavailable Unavail able Source [...] release of HIV test results or diagnoses. [id number] Reason for Visit * Reason Comments Results Encounter Details Date Type Department Care Team (Riky st Contact Info) Description 11/11/2024 Telephone [facility] Liver Transplant at [address] [address] Maureen Pantoja, RN Results Social [...] In the past 12 months has e [employer] gas, oil, or water [employer] threatened to shut off services in your [...] as of this encounter Care Teams Assembler Handbags Relationship Specialty Start Date End Date Enedina Mcguire NP [address] [place] [address] PCP - General Internal Medicine 10/05/24 Maureen Pantoja, RN Txp Post Coordinator Transplant Hepatology 10/28/24 documented as of this encounter
--- OUTSIDE RECORDS SUMMARY | 2024-12-04 07:46 | XMS_ITS | Encounter Summary ---
Author Organization [facility] Address [facility] [place] [address] Care Team Providers Care Marine Mammal Trainer Name Role Phone Enedina Mcguire NP Primary Care Provider [phone] Source Comments This information has been disclosed [...] release of HIV test results or diagnoses. [id number] Health Encounter Details Date Type Department Care Team (Late st Contact Info) Description 10/20/2024 Orders Only [facility] [address] [place] [address] Abdulkadir Gaspar MD [address] [facility] [address] [place] [address] Social History Tobacco Use Types Packs/Day Years Used Date Smoking Tobacco: Former Cigarettes Smokeless Tobacco: Current Alcohol Use Standard Drinks/Week Comments Yes 0 (1 standard drink = 0.6 oz pure alcohol) History of alcohol abuse, reports no use in 3 week- typically endorses use as 4 glasses of wine a days Utilities Answer Date Recorded In the past 12 months has [employer], gas, oil, or water company threatened to [...] ORDERABLES Final Resul t Performing Organization Address [facility] Co de Phone Number [facility] [address] [place], [place] [address] [place] [address] * Hox - ABO Typing Report (10/20/2024 5:03 PM EDT) 10/20/2024 5:03 PM EDT us Abdulkadir Gaspar MD LAB BLOOD ORDERABLES Final Resul t Performing Organization Address [facility] Co de Phone Number [facility] [address] [place] [place] [address] documented in this encounter Visit Diagnoses Not on filedocumented in this encounter Additional Health Concerns Infection Onset Date Last Indicated Resolved Time C. difficile 09/09/2024 09/09/2024 10/27/2024 8:30 AM EDT Assessment Noted Time PHQ-9 Depression Total Score: 17 025 11:00 AM EDT documented as of this encounter Care Teams Marine Mammal Trainer Relationship Specialty Start Date End Date Enedina Mcguire NP [address] [place] [address] PCP - General Internal Medicine 10/05/24 documented as of this encounter
--- OUTSIDE RECORDS SUMMARY | 2024-12-04 07:47 | XMS_ITS | Data Portability ---
Author Organization [facility],, Main Office Address [address] [place] [address] Assessment No assessment recorded. Plan of Treatment [...] Available No t Available BD Regular Bevel [place] 18 gauge x 1 active Not Available [...] Updated DateTime 3 193.04 cm 29.1 kg/m2 877202. 58 g 112 /min 97.7 [degF] 141/84 mm[Hg] [facility], 3 13:14:11 Date Recorded Body height Body mass index (BMI) Body weight Heart rate Body temperature Systolic And Diastolic Provider Name and Address Organization Details Last Updated DateTime 4 193.04 cm 30.4 kg/m2 779406. 09 g 92 /min 97.5 [degF] 176/104 mm[Hg] [facility], 4 14:06:31 Date Recorded Body temperature Provider Name a nd Address Organization Details Last Updated DateTime 12/27/2020 99.5 [degF] Cuca Strickland [facility], 12/27/2020 13:41:33 Date Recorded Body weight Heart rate Body temperature Systolic And Diastolic Provider Name and Address Organization Details Last Updated DateTime 04/03/2022 739212.95 g 93 /min 97.6 [degF] 114/83 mm[Hg] Ashley Wallace [facility], 04/03/2022 14:42:57 Social History None recorded. Functional Status None recorded. Mental Status None recorded. Family History Nothing Reported. Medical History No medical history recorded. Past Encounters Encounter ID Performer Location Encounter Start Date Encounter Closed Date Diagnosis/Indication Diagnosis SNOMED-CT Code Diagnosis ICD10 Code Diagnosis Note [id number] Yung Felipe DO Main Office [address] [place] [address] 12/27/2020 13:24:24 12/27/2020 14:00:19 Evaluation of semen fertility 567672772 N46.9 semen analysis [id number] Yung Felipe DO Main Office [address] [place] [address] 07/04/2021 14:47:56 07/04/2021 16:00:05 Evaluation of semen fertility 439711814 N46.9 semen analysis [id number] Yung Felipe DO Main Office [address] [place] [address] 05/31/2022 13:04:00 05/31/2022 13:50:01 Evaluation of semen fertility 011989697 N46.9 semen analysis + viability: analysis by Dr. Ruiz [id number] Yung Felipe DO Main Office [address] [facility] [place] [address] 10/22/2023 13:58:48 10/22/2023 14:31:18 Evaluation of semen fertility 449337341 N46.9 semen analysis + viability: analysis by [...] Name and Address Organization Details Recorded Time 1 text/html semen analysis Yung Felipe DO [address], [place], [address], [facility], 08/06/2021 23:24:22 2 text/html InfertilityReported by Patient Not Available Not Available Not Available 3 text/html semen analysis + viability [address], [place], [address], [facility], 05/31/2022 13:57:30 4 text/html semen analysis [address], [place], [address], [facility], 10/22/2023 16:29:00
--- OUTSIDE RECORDS SUMMARY | 2024-12-04 07:47 | XMS_ITS | Encounter Summary ---
Author Organization [facility] Address [address] [place] [address] Care Team Providers Care Film Crew Member Name Role Phone Enedina Mcguire NP Primary Care Provider + [phone] Maureen Pantoja RN Unavailable Unavail able Source [...] release of HIV test results or diagnoses. [id number] Reason for Visit * Reason Comments Results Encounter Details Date Type Department Care Team (Riky st Contact Info) Description 11/21/2024 Telephone [facility] Liver Transplant at [address] [address] Maureen Pantoja, RN Results Social [...] In the past 12 months has e [employer], gas, oil, or water [employer] threatened to shut off services in your [...] as of this encounter Care Teams Film Crew Member Relationship Specialty Start Date End Date Enedina Mcguire NP [address] [place] [address] PCP - General Internal Medicine 10/05/24 Maureen Pantoja, RN Txp Post Coordinator Transplant Hepatology 10/28/24 documented as of this encounter
--- OUTSIDE RECORDS SUMMARY | 2024-12-04 07:47 | XMS_ITS | Encounter Summary ---
Author Organization [facility] Address [address] [place] [address] Care Team Providers Care Mining Captain Name Role Phone Enedina Mcguire NP Primary Care Provider + [phone] Maureen Pantoja RN Unavailable Unavail able Source [...] release of HIV test results or diagnoses. [id number] Health Encounter Details Date Type Department Care Team (Late st Contact Info) Description 11/20/2024 Refill [facility] Liver Transplant at [address] [place] [address] Maureen Pantoja, RN Social History Tobacco Use [...] Recorded In the past 12 months has [employer], gas, oil, or water [employer] threatened to shut off services in your [...] documented as of this encounter Care Teams Mining Captain Relationship Specialty Start Date End Date Enedina Mcguire NP [address] [place] [address] PCP - General Internal Medicine 10/05/24 Maureen Pantoja, ЮЛИЯ Txp Post Coordinator Transplant Hepatology 10/28/24 documented as of this encounter
--- OUTSIDE RECORDS SUMMARY | 2024-12-04 07:47 | XMS_ITS | Encounter Summary ---
Author Organization [facility] Address [address] [place] [address] Care Team Providers Care Senior Nurse Manager Name Role Phone Enedina Mcguire NP Primary Care Provider + [phone] Maureen Pantoja RN Unavailable Unavail able Source [...] release of HIV test results or diagnoses. [id number] Health Encounter Details Date Type Department Care Team (Late st Contact Info) Description 11/20/2024 Orders Only [facility] Liver Transplant at [address] [place] [address] Maureen Pantoja, ЮЛИЯ S/P liver transplant (CMS-HCC) (Primary Dx); Immunosuppression ([facility]-HCC); Viral disease exposure; Alcohol use Social History [...] Recorded In the past 12 months has [employer], gas, oil, or water [employer] threatened to shut off services in your [...] Cutoff: 10 ng/mL 11/28/2024 8:24 AM EDT [facility] Comment: Phosphatidylethanol (PEth) homologues result interpretation [...] Cutoff: 10 ng/mL 11/28/2024 8:24 AM EDT [facility] Comment: PEth 16:0/18:2 (PLPEth) Reference ranges are not well established PEth Interpretation Positive. 11/28 8:24 AM T [facility] Comment: ADDITIONAL INFORMATION This report is intended for use in clinical monitoring and management of patients. It is not intended for use in employment-related testing. This test was developed and its performance characteristics determined by [facility] in a manner consistent with CLIA requirements. This test has not been cleared or approved by the U.S. Food and Drug Administration. Test Performed by: [facility] - [address] [address] Handhole Machine Operator: Kathy Ortiz Ph.D.; CLIA# [id number] Whole Blood 11/25/2024 8:42 AM EDT 11/28/2024 8:24 AM EDT [facility] - 11/28/2024 8:24 AM EDT One time lab order to be collected with next set of standing liver transplant labs. Please fax all results to [phone]. Call critical results to [phone]. Harvey Domínguez III, MD LAB BLOOD ORDERABLE S Final Result Performing Organization Address City/[facility]/ZIP Co de Phone Number [facility] [address] [facility]. [address] * HIV-1 RNA, Quantitative, PCR (11/25/2024 8:42 AM EDT) Pathologist [facility] HIV 1 Copies Not Detected copies/mL 11/26/2024 10:57 AM EDT [facility] Comment:Test methodology for HIV-1 RNA quantification is an FDA-approved nucleic acid amplification assay. The Lower Limit of Quantitation (LLoQ) is 20 copies/mL. The linear range is 20- to 10,000,000 copies/mL. The Limit of Detection (LoD) is 13.2 copies/mL. The reference range is Not Detected. HIV [id number] See Note [id number] /mL 11/26/2024 10:57 AM EDT [facility] Comment:HIV-1 RNA not detect ed. Plasma 11/25/2024 8:42 AM EDT 11/25/2024 10:59 AM EDT [facility] - 11/26/2024 10:57 AM EDT One time lab order to be collected with next set of standing liver transplant labs. UNOS requirement. Please fax all results to [phone]. Call critical results to [phone]. Harvey Domínguez III, MD LAB BLOOD ORDERABLE S Final Result Performing Organization Address City/[facility]/ZIP Co de Phone Number [facility] [address] [place]. [address] * Hepatitis C RNA, Quantitative PCR (11/25/2024 8:42 AM EDT) Pathologist [facility] International Units Not Detected IU/mL 11/27/2024 11:35 AM EDT [facility] Comment:Test methodology for HCV RNA quantification is an FDA-approved nucleic acid amplification assay. The Lower Limit of Quantitation (LLOQ) is 15 IU/mL. The linear range of the assay is 15-100,000,000 IU/mL. The Limit of Detection (LoD) is 12.0 IU/mL for EDTA plasma. The reference range is Not Detected. IU log10 See Note log 10 IU/mL 11/27/2024 11:35 AM EDT [facility] Comment:HCV RNA not detected . Plasma 11/25/2024 8:42 AM EDT 11/25/2024 10:59 AM EDT [facility] - 11/27/2024 11:35 AM EDT One time lab order to be collected with next set of standing liver transplant labs. UNOS requirement. Please fax all results to [phone]. Call critical results to [phone]. Harvey Domínguez III, MD LAB BLOOD ORDERABLE S Final Result [facility] [address] [place] [address], [facility] * Hepatitis B Virus (HBV), PCR, Quant (11/25/2024 8:42 AM EDT) Hep B Viral DNA IU/ML Not Detected IU/mL 11/28/2024 10:09 AM EDT [facility] Comment:Test methodology for HBV DNA quantification is an FDA-approved nucleic acid amplification assay. The lower limit of quantitation (LLOQ) is 10 IU/mL. The linear range of the assay is 10-1,000,000,000 IU/mL. The limit of detection (LoD) for plasma is 2.7 IU/mL. The reference range is Not Detected. log 10 HBV as IU/mL See Note log 10 IU/mL 11/28/2024 10:09 AM EDT [facility] Comment:HBV DNA not detected . Plasma 11/25/2024 8:42 AM EDT 11/25/2024 10:59 AM EDT Narrative [facility] - 11/28/2024 10:09 AM EDT One time lab order to be collected with next set of standing liver transplant labs. UNOS requirement. Please fax all results to [phone]. Call critical results to [phone]. us Harvey Domínguez III, MD LAB BLOOD ORDERABLE S Final Result [facility] [address] [place], [place] [address] documented in this encounter [...] as of this encounter Care Teams Senior Nurse Manager Relationship Specialty Start Date End Date Enedina Mcguire NP [address] [place] [address] PCP - General Internal Medicine 10/05/24 Maureen Pantoja, RN Txp Post Coordinator Transplant Hepatology 10/28/24 documented as of this encounter
--- OUTSIDE RECORDS SUMMARY | 2024-12-04 07:47 | XMS_ITS | Encounter Summary ---
Author Organization [facility] Address [address] [place] [address] Care Team Providers Care Director Of Outside Sales Name Role Phone Enedina Mcguire NP Primary Care Provider + [phone] Maureen Pantoja RN Unavailable Unavail able Source [...] release of HIV test results or diagnoses. [id number] Health Encounter Details Date Type Department Care Team (Late st Contact Info) Description 11/21/2024 Chart Note [facility] Liver Transplant at [address] [place] [phone] Marlene Ro MA FK: 11/18 & 11/20 [...] Recorded In the past 12 months has [employer], gas, oil, or water [employer] threatened to shut off services in your [...] Tacrolimus level (11/20/2024 8:00 AM EDT) Pathologist [facility] Tacrolimus Lvl 11.5 6 - [...] g/dL Blood Narrative Resulting Agency Comment [facility] Historical Provider LAB BLOOD ORDERABLES Denisse l [...] 10^3/mL Blood Narrative Resulting Agency Comment [facility] Historical Provider LAB BLOOD ORDERABLES Denisse l Result * Hepatic Function Panel (11/20/2024 8:00 AM EDT) Bilirubin, Direct 0.4 Bilirubin, Indirect 0.1 Alkaline Phosphatase 285 U/L ALT 60 U/L AST 25 U/L Total Bilirubin 0.5 0.1 - 1.4 mg/dL Total Protein 6.4 6.4 - 8.2 g/dL Plasma Narrative Resulting Agency Comment [facility] Result [facility] MD LAB BLOOD ORDERABLES Denisse l Result * Tacrolimus level (11/18/2024 7:45 AM EDT) Pathologist [facility] Tacrolimus Lvl 12.5 6 - 15 ng/mL Whole Blood Result [facility] MD LAB BLOOD ORDERABLES Denisse l Result * (ABNORMAL) Hepatic Function Panel (11/18/2024 7:45 AM EDT) [facility] Bilirubin, Direct 0.5 Bilirubin, Indirect 0.1 Alkaline Phosphatase 189 U/L ALT 41 U/L AST 23 U/L Total Bilirubin 0.6 0.1 - 1.4 mg/dL Total Protein 6.1(A) 6.4 - 8.2 g/dL Plasma Narrative Resulting Agency Comment [facility] Result [facility] LAB BLOOD ORDERABLES Denisse l Result * (ABNORMAL) Renal Function Panel w/o EGFR (11/18/2024 7:45 AM EDT) [facility] Glucose 100 mg/dL BUN 43(A) 4 - [...] g/dL Blood Narrative Resulting Agency Comment [facility] Result [facility] MD LAB BLOOD ORDERABLES Denisse l Result * (ABNORMAL) CBC and differential (11/18/2024 7:45 AM EDT) [facility] Hemoglobin 10.2(A) 13.5 - 17.5 g/dL Hematocrit [...] 10^3/mL Blood Narrative Resulting Agency Comment [facility] us Historical Provider LAB BLOOD ORDERABLES Denisse l Result documented in this encounter Visit Diagnoses Not on filedocumented in this encounter Additional Health Concerns Infection 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
--- OUTSIDE RECORDS SUMMARY | 2024-12-04 07:47 | XMS_ITS | Encounter Summary ---
Author Organization [facility] Address [address] [place] [address] Care Team Providers Care Ammonia Box Tender Name Role Phone Enedina Mcguire NP Primary Care Provider + [phone] Maureen Pantoja RN Unavailable Unavail able Source [...] release of HIV test results or diagnoses. [id number] Health Encounter Details Date Type Department Care Team (Late st Contact Info) Description 11/20/2024 Refill [facility] Liver Transplant at [address] [place] [phone] Maureen Pantoja, RN Social History Tobacco Use [...] Recorded In the past 12 months has [employer], gas, oil, or water [employer] threatened to shut off services in your [...] documented as of this encounter Care Teams Ammonia Box Tender Relationship Specialty Start Date End Date Enedina Mcguire NP [address] [place] [address] PCP - General Internal Medicine 10/05/24 Maureen Pantoja, ЮЛИЯ Txp Post Coordinator Transplant Hepatology 10/28/24 documented as of this encounter
--- OUTSIDE RECORDS SUMMARY | 2024-12-04 07:47 | XMS_ITS | Encounter Summary ---
Author Organization [facility] Address [address] [place] [address] Care Team Providers Care Programmer Business Name Role Phone Enedina Mcguire NP Primary Care Provider + [phone] Maureen Pantoja RN Unavailable Unavail able Source [...] release of HIV test results or diagnoses. [id number] Health Encounter Details Date Type Department Care Team (Late st Contact Info) Description 11/21/2024 Orders Only [facility] [place] [facility] [address] [facility] [address] [place] [address] Vasile Gordillo MA Social History [...] Recorded In the past 12 months has [employer], gas, oil, or water [employer] threatened to shut off services in your [...] documented as of this encounter Care Teams Programmer Business Relationship Specialty Start Date End Date Enedina Mcguire NP [address] [place] [address] PCP - General Internal Medicine 10/05/24 Maureen Pantoja, ЮЛИЯ Txp Post Coordinator Transplant Hepatology 10/28/24 documented as of this encounter
--- OUTSIDE RECORDS SUMMARY | 2024-12-04 07:49 | XMS_ITS | Encounter Summary ---
Author Organization [facility] Address [address] [place] [address] Care Team Providers Care Director Compensation Name Role Phone Enedina Mcguire NP Primary Care Provider [phone] Source Comments This information has been disclosed [...] release of HIV test results or diagnoses. [id number] Reason for Visit * Reason Comments DDLT patient instructions Encounter Details Date Type Department Care Team (Late st Contact Info) Description 10/25/2024 Telephone [facility] Liver Transplant at [address] [address] Krissy Crowell RN DDLT patient [...] Recorded In the past 12 months has [employer], gas, oil, or water [employer] threatened to shut off services in your [...] Patient will arrive to PACU, ETA is [phone]. Nursing Specialist Field Engineer (uHmaira), PACU (Emily), SICU (Lizeth), OR (Omar), txp [...] as of this encounter Care Teams Director Compensation Relationship Specialty Start Date End Date Enedina Mcguire NP [address] [place], [place] [address] PCP - General Internal Medicine 10/05/24 documented as of this encounter
--- OUTSIDE RECORDS SUMMARY | 2024-12-04 07:49 | XMS_ITS | Encounter Summary ---
Author Organization [facility] Address [address] [place] [address] Care Team Providers Care Dopeman Name Role Phone Enedina Mcguire NP Primary Care Provider [phone] Source Comments This information has been disclosed [...] release of HIV test results or diagnoses. [id number] Encounter Details Date Type Department Care [...] Recorded In the past 12 months has [employer], oil, or water [employer] threatened to shut off services in [...] documented as of this encounter Care Teams Dopeman Relationship Specialty Start Date End Date Enedina Mcguire NP [address] [place], [place] [address] PCP - General Internal Medicine 10/05/24 documented as of this encounter
--- OUTSIDE RECORDS SUMMARY | 2024-12-04 07:49 | XMS_ITS | Encounter Summary ---
Author Organization [facility] Address [address] [place] [address] Care Team Providers Care Business Support Professional Name Role Phone Enedina Mcguire NP Primary Care Provider [phone] Source Comments This information has been disclosed [...] release of HIV test results or diagnoses. [id number] Encounter Details Date Type Department Care Team (Late st Contact Info) Description 10/26/2024 Chart Note [facility] Liver Transplant at [address] [place] [phone] Geri Vasquez, ЮЛИЯ Social History Tobacco Use [...] Recorded In the past 12 months has [employer], gas, oil, or water [employer] threatened to shut off services in your [...] as of this encounter Care Teams Business Support Professional Relationship Specialty Start Date End Date Enedina Mcguire NP [address] [place] [address] PCP - General Internal Medicine 10/05/24 documented as of this encounter
--- OUTSIDE RECORDS SUMMARY | 2024-12-04 07:51 | XMS_ITS | Encounter Summary ---
Author Organization [facility] Address [address] [place] [address] Care Team Providers Care Manager Special Events Name Role Phone Enedina Mcguire NP Primary Care Provider [phone] Source Comments This information has been disclosed [...] release of HIV test results or diagnoses. [id number] Health Encounter Details Date Type Department Care Team (Late st Contact Info) Description 10/22/2024 Status Update [facility] Kidney Transplant at [facility] [address] [facility] [address] [place] [address] Aaron Gonzalez MD [address] [facility] [place] [address] Social History Tobacco Use Types Packs/Day Years Used Date Smoking Tobacco: Former Cigarettes Smokeless Tobacco: Current Alcohol Use Standard Drinks/Week Comments Yes 0 (1 standard drink = 0.6 oz pure alcohol) History of alcohol abuse, reports no use in 3 week- typically endorses use as 4 glasses of wine a days Utilities Answer Date Recorded In the past 12 months has [employer], gas, oil, or water [employer] threatened to shut off services in your [...] as of this encounter Care Teams Manager Special Events Relationship Specialty Start Date End Date Enedina Mcguire NP [address] [place] [address] PCP - General Internal Medicine 10/05/24 documented as of this encounter
--- OUTSIDE RECORDS SUMMARY | 2024-12-04 07:51 | XMS_ITS | Encounter Summary ---
Author Organization [facility] Address [address] [place] [address] Care Team Providers Care Registered Account Administrator Name Role Phone Enedina Mcguire APRN Primary Care Provider + Encounter Details Date Type Department Care Team ([facility] st Contact Info) Description 10/17/2024 Telephone [facility] INTERNAL MEDICINE [address] [place] [address] Enedina Mcguire APRN [address] [place] [address] Social History Tobacco Use Types Packs/Day Years Used Date Smoking Tobacco: Former Cigarettes 4 20 Passive Smoke Exposure: Past Smokeless Tobacco: Current Comments:MARIJUANA USE ABOUT 2X PER WEEK - reports no use 08-05-2024 Alcohol Use Standard Drinks/Week Comments Not Currently 0 (1 standard drink = 0.6 oz pure alcohol) 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 [facility] Utilities Answer Date Recorded In the past 12 months has [employer], [employer], oil, or water [employer] threatened to shut off services in your [...] Brief Depression Severity Measure Score 0 10/02/2022 [facility] Occupational Stress Questionnaire Answer Date [...] GED or equivalent No 07/09/2024 Preferred Language Mosotho 07/09/2024 PHQ-2 Answer Date Recorded Patient Health [...] PM EDT PATIENT WAS JUST DISCHARGE FROM [facility] AND THEY HAVE PLACED THE PATIENT ON OXY 5MG. THE HOSPITAL ONLY GAVE THE PATIENT 3 DAYS OF MEDS. PATIENT IS REQUESTING A REFILL TO GET HIM TO THE APPT WITH PCP ON 10/27. PHARM: [facility] [place] [phone] CALL BACK: [phone] documented in this encounter Plan of Treatment Upcoming Encounters Date Type Department Care Team (Late st Contact Info) Description 12/04/2024 2:15 PM EDT Office Visit [facility] PAIN MANAGEMENT [address] [address] Vazquez Christie PA-C [address] [address] documented as of this encounter Visit Diagnoses Not on filedocumented in this encounter Additional Health Concerns Assessment Noted Time PHQ-2 Depression Total Score: 1 12/31/19 24 3:25 PM EDT documented as of this encounter Care Teams Registered Account Administrator Relationship Specialty Start Date End Date Enedina Mcguire APRN [address] [place] [address] PCP - General Nurse Practitioner 10/27/24 documented as of this encounter
--- OUTSIDE RECORDS SUMMARY | 2024-12-04 07:51 | XMS_ITS | Encounter Summary ---
Author Organization [facility] Address [address] [place] [address] Care Team Providers Care Residential Appliance Repair Technician Name Role Phone Enedina Mcguire NP Primary Care Provider [phone] Source Comments This information has been disclosed [...] release of HIV test results or diagnoses. [id number] Health Encounter Details Date Type Department Care Team (Late st Contact Info) Description 10/22/2024 Telephone [facility] Psychiatry Transplant at [facility] [address] [facility] [address] [place] [address] Lizeth Warren PsyD [address] [facility] [address] [place] [address] Social History Tobacco Use Types Packs/Day Years Used Date Smoking Tobacco: Former Cigarettes Smokeless Tobacco: Current Alcohol Use Standard Drinks/Week Comments Yes 0 (1 standard drink = 0.6 oz pure alcohol) History of alcohol abuse, reports no use in 3 week- typically endorses use as 4 glasses of wine a days Utilities Answer Date Recorded In the past 12 months has [employer], gas, oil, or water [employer] threatened to shut off services in your [...] appts. Went to voicemail. Left vm referencing [employer] message with availability times listed. Encouraged patient [...] as of this encounter Care Teams Residential Appliance Repair Technician Relationship Specialty Start Date End Date Enedina Mcguire NP [address] [place] [address] PCP - General Internal Medicine 10/05/24 documented as of this encounter
--- OUTSIDE RECORDS SUMMARY | 2024-12-04 07:51 | XMS_ITS | Encounter Summary ---
Author Organization [facility] Address [address] [place] [address] Care Team Providers Care Vinyl Flooring Installer Name Role Phone Enedina Mcguire NP Primary Care Provider [phone] Source Comments This information has been disclosed [...] release of HIV test results or diagnoses. [id number] Health Encounter Details Date Type Department Care Team (Late st Contact Info) Description 10/25/2024 Telephone [facility] Liver Transplant at [address] [address] Krissy Crowell RN Social History Tobacco Use [...] Recorded In the past 12 months has [employer], gas, oil, or water [employer] threatened to shut off services in your [...] granted: N/A OPO: CHACHA OPO Contact: Kiet [phone] Recent illnesses (surgeon aware) [x] Yes [] [...] need to bring equipment or solution to [facility]. They will get supplies from [...] Notifications: Department Phone Comments Time/Name Capacity Management [phone] Notified of patient's pending TXP ORGANS: Liver Kidney Time: Spoke to: OR [phone] OR scheduled for: per Dr. Domínguez Recipient in the OR time 10/25/2024 @ 2200 Acute donor Risk (according to OPTN policy) YES (HCV, HBV, HIV, COVID) Notified Donor is DCD Time: 1145, spoke to Faraz OR shipping/receiving manager: Gladys RAMIREZ ORGAN Time: yes 1155 BLOOD BANK [phone] For Liver and Heart only Spoke to Morley 1217 Nursing Profile Stitching Machine Operator [phone] For delayed call in [facility] 1158 PACU or Sameday [phone] Delayed call in: If recipient OR is 2 hrs or less from admission, call PACU/Sameday (basedon where nursing correspondence section supervisor assigns patient) Abdominal Transplant 8CCP [phone] Transfer of care reported for abdominal txp Notified of dialysis type and last session if applicable Time: 8CCP shipping/receiving manager: SICU [phone] Notify about abdominal txp admissions Time: 1215 SICU shipping/receiving manager: Aleks Transplant Surgery Resident/PA QGenda Time: 1219 Spoke to: Dr. Corbett Transplant Surgery Fellow QGenda Time: 1200 Spoke to: Sveta Mojica MD Transplant Research Team [phone] Time: 1218 Spoke to: Macey If applicable, Dialysis Unit EMR Time: Spoke to: Pharmacy IV Room [phone] Liver Only Contact pharmacy to alert that HBIG will be needed when all the following are present: Donor: *HBsAg negative *HBV DNA/KIANA negative Recipient: *HBsAg positive *HBV DNA is detectable on most recent check Time: Spoke to: Heart Transplant CVICU [phone] Transfer of care reported for heart txp Time: CVICU shipping/receiving manager: Email notification to Transplant Team(s) and OR shipping/receiving manager. [Send the following information below to the [...] Venoveno bypass: No Donor info: Donor ID: [id number] Match ID: [id number] Anti-HBc: Negative HBV KIANA: Negative HBsAg: Negative [...] documented as of this encounter Care Teams Vinyl Flooring Installer Relationship Specialty Start Date End Date Enedina Mcguire NP [address] [place] [address] PCP - General Internal Medicine 10/05/24 documented as of this encounter
--- OUTSIDE RECORDS SUMMARY | 2024-12-04 07:51 | XMS_ITS | Encounter Summary ---
Author Organization [facility] Address [address] [place] [address] Care Team Providers Care Nitrating Acid Mixer Name Role Phone Enedina Mcguire NP Primary Care Provider [phone] Source Comments This information has been disclosed [...] release of HIV test results or diagnoses. [id number] Health Encounter Details Date Type Department Care Team (Late st Contact Info) Description 10/22/2024 Telephone [facility] Liver Transplant at [address] [address] Mary Butler, RN Social History Tobacco Use [...] Recorded In the past 12 months has [employer], gas, oil, or water [employer] threatened to shut off services in [...] will need ~[address] [facility]. documented in this encounter Plan of Treatment Not on file documented as of this encounter Visit Diagnoses Not on filedocumented in this encounter Additional Health Concerns Infection Onset Date Last Indicated Resolved Time C. difficile 09/09/2024 09/09/2024 10/27/2024 8:30 AM EDT Assessment Noted Time PHQ-9 Depression Total Score: 17 025 11:00 AM EDT documented as of this encounter Care Teams Nitrating Acid Mixer Relationship Specialty Start Date End Date Enedina Mcguire NP [address] [place] [address] PCP - General Internal Medicine 10/05/24 documented as of this encounter
--- OUTSIDE RECORDS SUMMARY | 2024-12-04 07:51 | XMS_ITS | Encounter Summary ---
Author Organization [facility] Address [facility] [place] [address] Care Team Providers Care Quality Nurse Name Role Phone Enedina Mcguire NP Primary Care Provider [phone] Source Comments This information has been disclosed [...] release of HIV test results or diagnoses. [id number] Health Encounter Details Date Type Department Care Team (Late st Contact Info) Description 10/22/2024 Orders Only [facility] [address] [place] [address] Abdulkadir Gaspar MD [address] [facility] [address] [place] [address] Social History Tobacco Use Types Packs/Day Years Used Date Smoking Tobacco: Former Cigarettes Smokeless Tobacco: Current Alcohol Use Standard Drinks/Week Comments Yes 0 (1 standard drink = 0.6 oz pure alcohol) History of alcohol abuse, reports no use in 3 week- typically endorses use as 4 glasses of wine a days Utilities Answer Date Recorded In the past 12 months has [employer], gas, oil, or water company threatened to [...] MD LAB BLOOD ORDERABLES Final Resul t [facility] [address] [place] [address] documented in this encounter Visit Diagnoses Not on filedocumented in this encounter Additional Health Concerns Infection Onset Date Last Indicated Resolved Time C. difficile 09/09/2024 09/09/2024 10/27/2024 8:30 AM EDT Assessment Noted Time PHQ-9 Depression Total Score: 17 025 11:00 AM EDT documented as of this encounter Care Teams Quality Nurse Relationship Specialty Start Date End Date Enedina Mcguire NP [address] [place] [address] PCP - General Internal Medicine 10/05/24 documented as of this encounter
--- OUTSIDE RECORDS SUMMARY | 2024-12-04 07:51 | XMS_ITS | Encounter Summary ---
Author Organization [facility] Address [address] [place] [address] Care Team Providers Care Commercial Real Estate Agent Name Role Phone Enedina Mcguire APRN Primary Care Provider + Encounter Details Date Type Department Care Team ([facility] st Contact Info) Description 10/07/2024 Results Follow-Up [facility] INTERNAL MEDICINE [address] [place] [address] Enedina Mcguire APRN [address] [place], [place] [id number] Social History Tobacco Use Types Packs/Day Years Used Date Smoking Tobacco: Former Cigarettes 4 20 Passive Smoke Exposure: Past Smokeless Tobacco: Current Comments:MARIJUANA USE ABOUT 2X PER WEEK - reports no use 08-05-2024 Alcohol Use Standard Drinks/Week Comments Not Currently 0 (1 standard drink = 0.6 oz pure alcohol) 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 [facility] Utilities Answer Date Recorded In the past 12 months has [employer], [employer], oil, or water [employer] threatened to shut off services [...] Brief Depression Severity Measure Score 0 10/02/2022 [facility] - Occupational [...] GED or equivalent No 07/09/2024 Preferred Language Moroccan 07/09/2024 PHQ-2 Answer Date Recorded Patient Health [...] Description 12/04/2024 2:15 PM EDT Office Visit [facility] PAIN MANAGEMENT [address] [phone] Vazquez Christie PA-C [address] [place] [address] documented as of this encounter Visit Diagnoses Not on filedocumented in this encounter Additional Health Concerns Assessment Noted Time PHQ-2 Depression Total Score: 1 12/31/19 24 3:25 PM EDT documented as of this encounter Care Teams Commercial Real Estate Agent Relationship Specialty Start Date End Date Enedina Mcguire APRN [address] [place] [address] PCP - General Nurse Practitioner 10/27/24 documented as of this encounter
--- OUTSIDE RECORDS SUMMARY | 2024-12-04 07:51 | XMS_ITS | Encounter Summary ---
Author Organization [facility] Address [address] [place] [address] Care Team Providers Care Control Room Helper Name Role Phone Enedina Mcguire NP Primary Care Provider [phone] Source Comments This information has been disclosed [...] release of HIV test results or diagnoses. [id number] Health Encounter Details Date Type Department Care Team (Late st Contact Info) Description 10/22/2024 Chart Note [facility] Liver Transplant at [address] [place] [address] Faraz Carballo RN 2nd ABO verified for [...] In the past 12 months has [employer], gas, oil, or water [employer] threatened to shut off services in [...] documented as of this encounter Care Teams Control Room Helper Relationship Specialty Start Date End Date Enedina Mcguire NP [address] [place] [address] PCP - General Internal Medicine 10/05/24 documented as of this encounter
--- OUTSIDE RECORDS SUMMARY | 2024-12-04 07:51 | XMS_ITS | Encounter Summary ---
Author Organization [facility] Address [address] [place] [address] Care Team Providers Care Drosophere Operator Name Role Phone Enedina Mcguire NP Primary Care Provider [phone] Source Comments This information has been disclosed [...] release of HIV test results or diagnoses. [id number] Health Encounter Details Date Type Department Care Team (Late st Contact Info) Description 10/26/2024 Chart Note [facility] Kidney Transplant at [address] [place] [address] Geri Vasquez, ЮЛИЯ Social History Tobacco Use [...] Recorded In the past 12 months has [employer], gas, oil, or water [employer] threatened to shut off services in [...] documented as of this encounter Care Teams Drosophere Operator Relationship Specialty Start Date End Date Enedina Mcgurie NP [address] [place] [address] PCP - General Internal Medicine 10/05/24 documented as of this encounter
--- OUTSIDE RECORDS SUMMARY | 2024-12-04 07:51 | XMS_ITS | Encounter Summary ---
Author Organization [facility] Address [address] [place] [address] Care Team Providers Care Catering Sales Manager Name Role Phone Enedina Mcguire NP Primary Care Provider [phone] Source Comments This information has been disclosed [...] release of HIV test results or diagnoses. [id number] Health Encounter Details Date Type Department Care Team (Late st Contact Info) Description 10/22/2024 Chart Note [facility] Kidney Transplant at [address] [place] [address] Gladis Rainey RN Received most recent [...] Recorded In the past 12 months has [employer], gas, oil, or water [employer] threatened to shut off services in your [...] Rainey RN - 10/22/2024 1:51 PM EDT [facility] VERIFICATION CHECK FORM Julien Anderson [id number] [address] or answer yes or no next to each item to note you have verified the information for listing on this patient in [facility]. First Name nh Last Name ut Middle Initial N/a Date of ut SS# ut Center ID# (MRN) ut ABO x 2 ut / ut I have verified the two (2) blood type results for this candidate are the same blood type and matchthe results reported in [facility]. 2728 date [facility] N/a 2728 date [facility] N/a If patient is not on Dialysis Verify date of GFR and GFR 19 on 08/13/24 *Meets CKD Criteria for [facility] listing today with today eGFR 21 on 10/22/24 *Kidney checked in Liver registration as additional organ Listing date in [facility] match nh Listing date notification letter match [facility] and [facility] Updated consent on file [x] Yes [...] Team documentation Nephrology within the last year ut warm in worker within the last year ut Dietitian within the last year ut Finance within the last year ut Pharmacy within the last year ut Initial surgery assessment ut RN coordinator documentation nh * Terra Pyle RN - 10/22/2024 1:51 PM EDT [facility] VERIFICATION CHECK FORM Julien Anderson [id number] [address] or answer yes or [...] [facility]. 2727 date [facility] N/A 2727 date [facility] N/A If patient is not on Dialysis Verify date of GFR and GFR 19 on 08/13/24 Verified that liver was checked on kidney registration Verified that kidney was checked on liver registration Listing date in [facility] match MW Listing date notification letter match [facility] and [facility] Updated consent on file [x] [...] documentation Nephrology within the last year MW warm in worker within the last year MW Dietitian [...] documented as of this encounter Care Teams Catering Sales Manager Relationship Specialty Start Date End Date Enedina Mcguire NP [address] [place] [address] PCP - General Internal Medicine 10/05/24 documented as of this encounter
--- OUTSIDE RECORDS SUMMARY | 2024-12-04 07:51 | XMS_ITS | Encounter Summary ---
Author Organization [facility] Address [address] [place] [address] Care Team Providers Care Fitness Center Attendant Name Role Phone Enedina Mcguire NP Primary Care Provider [phone] Source Comments This information has been disclosed [...] release of HIV test results or diagnoses. [id number] Reason for Visit * Reason Comments Appointment Encounter Details Date Type Department Care Team ([facility] st Contact Info) Description 10/24/2024 Telephone [facility] Renal Hypertension Clinic at [address] [place] [phone] Joann Davies MA Appointment Social History Tobacco [...] Recorded In the past 12 months has [employer], [employer], oil, or water [employer] threatened to shut off services in your [...] documented as of this encounter Care Teams Fitness Center Attendant Relationship Specialty Start Date End Date Enedina Mcguire NP [address] [place] [address] PCP - General Internal Medicine 10/05/24 documented as of this encounter
--- OUTSIDE RECORDS SUMMARY | 2024-12-04 07:51 | XMS_ITS | Encounter Summary ---
Author Organization [facility] Address [address] [place] [address] Care Team Providers Care Flower Buncher Or Picker Name Role Phone Enedina Mcguire NP Primary Care Provider [phone] Source Comments This information has been disclosed [...] release of HIV test results or diagnoses. [id number] Health Encounter Details Date Type Department Care Team (Late st Contact Info) Description 10/22/2024 Chart Note [facility] Liver Transplant at [address] [place] [phone] Mary Butler, RN Social History Tobacco Use [...] Recorded In the past 12 months has [employer], gas, oil, or water [employer] threatened to shut off services in your [...] documented as of this encounter Care Teams Flower Buncher Or Picker Relationship Specialty Start Date End Date Enedina Mcguire NP [address] [place] [address] PCP - General Internal Medicine 10/05/24 documented as of this encounter
--- OUTSIDE RECORDS SUMMARY | 2024-12-04 07:51 | XMS_ITS | Encounter Summary ---
Author Organization [facility] Address [facility] [place] [address] Care Team Providers Care Uniform Designer Name Role Phone nEedina Mcguire NP Primary Care Provider [phone] Source Comments This information has been disclosed [...] release of HIV test results or diagnoses. [id number] Health Encounter Details Date Type Department Care Team (Late st Contact Info) Description 10/27/2024 Orders Only [facility] [address] [place] [address] Abdulkadir Gaspar MD [address] [facility] [address] [place] [address] Social History Tobacco Use Types Packs/Day Years Used Date Smoking Tobacco: Former Cigarettes Smokeless Tobacco: Current Alcohol Use Standard Drinks/Week Comments Yes 0 (1 standard drink = 0.6 oz pure alcohol) History of alcohol abuse, reports no use in 3 week- typically endorses use as 4 glasses of wine a days Utilities Answer Date Recorded In the past 12 months has [employer], gas, oil, or water company threatened to [...] LAB BLOOD ORDERABLES Final Resul t [facility] [address] [place] [address] documented in this encounter Visit Diagnoses Not on filedocumented in this encounter Additional Health Concerns Infection Onset Date Last Indicated Resolved Time C. difficile 09/09/2024 09/09/2024 10/27/2024 8:30 AM EDT Assessment Noted Time PHQ-9 Depression Total Score: 17 025 11:00 AM EDT documented as of this encounter Care Teams Uniform Designer Relationship Specialty Start Date End Date Enedina Mcguire NP [address] [place] [address] PCP - General Internal Medicine 10/05/24 documented as of this encounter
--- OUTSIDE RECORDS SUMMARY | 2024-12-04 07:51 | XMS_ITS | Encounter Summary ---
[facility] Address [address] [place] [address] Care Team Providers Care Water Quality Assistant Name Role Phone Enedina Mcguire APRN Primary Care Provider + Reason for Visit * Reason Comments Med Refill Encounter Details Date Type Department Care Team (Late st Contact Info) Description 07/20/2022 Refill [facility] GASTROENTEROLOGY [address] [facility] [address] [place] [address] Lj Tapia APRN [address] [place] [address] Secondary esophageal varices without bleeding Social History [...] or training? Not on file Preferred Language Moroccan 07/03/2022 Sex and Gender Information Value Date Recorded Sex Assigned at Male 08/20/2024 8:28 PM EDT Legal Sex Male 7:45 AM EDT Gender Identity Not on file Sexual Orientation Not on file documented as of this encounter Plan of Treatment Upcoming Encounters Date Type Department Care Team (Late st Contact Info) Description 12/04/2024 2:15 PM EDT Office Visit [facility] PAIN [facility]NA[facility]EMENT [address] [facility] [address] [place] [address] Vazquez Christie PA-C [address] [place] [address] documented as of this encounter Visit Diagnoses Diagnosis Secondary esophageal varices without bleeding documented in this encounter Additional Health Concerns Infection Onset Date Last Indicated Resolved Time COVID Screen (preop/placement) 07/28/2022 07/28/2022 07/29/2022 12:00 AM EDT documented as of this encounter Care Teams Water Quality Assistant Relationship Specialty Start Date End Date Enedina Mcguire APRN [address] [place] [address] PCP - General Nurse Practitioner 10/27/24 documented as of this encounter
--- OUTSIDE RECORDS SUMMARY | 2024-12-04 07:51 | XMS_ITS | Encounter Summary ---
Author Organization [facility] Address [address] [place] [address] Care Team Providers Care Seam Rubbing Machine Operator Name Role Phone Enedina Mcguire NP Primary Care Provider + [phone] Alicia Rankin RN Unavailable Unavail able Source [...] release of HIV test results or diagnoses. [id number] Reason for Visit * Reason Comments Results Encounter Details Date Type Department Care Team (Riky st Contact Info) Description 11/26/2024 Telephone [facility] Liver Transplant at [address] [address] Alicia Rankin, RN Results Social [...] In the past 12 months has e [email or web address], gas, oil, or water [employer] threatened to shut off services in [...] as of this encounter Care Teams Seam Rubbing Machine Operator Relationship Specialty Start Date End Date Enedina Mcguire NP [address] [place] [address] PCP - General Internal Medicine 10/05/24 Alicia Rankin, RN Txp Post Coordinator Transplant Hepatology 10/28/24 documented as of this encounter
--- OUTSIDE RECORDS SUMMARY | 2024-12-04 07:51 | XMS_ITS | Encounter Summary ---
[facility] [address] [place] [address] Care Team Providers Care Outdoor Adventure Instructor Name Role Phone Enedina Mcguire APRN Primary Care Provider + Encounter Details Date Type Department Care Team ([facility] st Contact Info) Description 10/07/2024 Results Follow-Up [facility] INTERNAL MEDICINE [address] [place] [address] Enedina Mcguire APRN [address] [place], [place] [id number] Social History Tobacco Use Types Packs/Day Years Used Date Smoking Tobacco: Former Cigarettes 4 20 Passive Smoke Exposure: Past Smokeless Tobacco: Current Comments:MARIJUANA USE ABOUT 2X PER WEEK - reports no use 08-05-2024 Alcohol Use Standard Drinks/Week Comments Not Currently 0 (1 standard drink = 0.6 oz pure alcohol) 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 [facility] Utilities Answer Date Recorded In the past 12 months has [employer], [employer], oil, or water [employer] threatened to shut off services in your [...] Brief Depression Severity Measure Score 0 10/02/2022 [facility] - Occupational Stress [...] GED or equivalent No 07/09/2024 Preferred Language Tristanian 07/09/2024 PHQ-2 Answer Date Recorded Patient Health [...] 2:15 PM EDT Office Visit [facility] PAIN MANAGEMENT [address] [phone] Vazquez Christie PA-C [address] [place] [address] documented as of this encounter Visit Diagnoses Not on filedocumented in this encounter Additional Health Concerns Assessment Noted Time PHQ-2 Depression Total Score: 1 12/31/19 24 3:25 PM EDT documented as of this encounter Care Teams Outdoor Adventure Instructor Relationship Specialty Start Date End Date Enedina Mcguire APRN [address] [place] [address] PCP - General Nurse Practitioner 10/27/24 documented as of this encounter
--- OUTSIDE RECORDS SUMMARY | 2024-12-04 07:52 | XMS_ITS | Encounter Summary ---
Author Organization [facility] Address [facility] [place] [address] Care Team Providers Care Clinical Nutrition Manager Name Role Phone Enedina Mcguire NP Primary Care Provider + [phone] Maureen Pantoja RN Unavailable Unavail able Source [...] release of HIV test results or diagnoses. [id number] Health Encounter Details Date Type Department Care Team (Late st Contact Info) Description 10/31/2024 Orders Only [facility] Liver Transplant at [facility] [address] [facility] [address] [place] [address] Harvey Domínguez III, MD [address] [place] [address] [address] [place] [address] Liver replaced by transplant ([facility]) (Primary Dx); Immunosuppressive management encounter following liver transplant ([facility]) Social History Tobacco Use Types [...] past 12 months has th e electric, [employer], [employer], or water [employer] threatened to shut off services in [...] level Lab Routine Liver replaced by transplant ([facility]) Immunosuppressive management encounter following liver transplant ([facility]) 70 Occurrences starting 11/03/2024 until 10/31/2025, 3 completed Hepatic Function Panel Lab Routine Liver replaced by transplant ([facility]) Immunosuppressive management encounter following liver transplant ([facility]) 70 Occurrences starting 11/03/2024 until 10/31/2025, 3 completed Renal Function Panel w/EGFR Lab Routine Liver replaced by transplant ([facility]) Immunosuppressive management encounter following liver transplant ([facility]) 70 Occurrences starting 11/03/2024 until 10/31/2025, 2 completed CBC Lab Routine Liver replaced by transplant ([facility]) Immunosuppressive management encounter following liver transplant ([facility]) 70 Occurrences starting 11/03/2024 until 10/31/2025, 2 completed Differential Lab Routine Liver replaced by transplant ([facility]) Immunosuppressive management encounter following liver transplant ([facility]) 70 Occurrences starting 11/03/2024 until 10/31/2025, 3 [...] - 8,640 /uL 11/25/2024 10:25 AM EDT [facility] Lymphocytes Absolute 1,555 570 - 4,860 /uL 11/25/2024 10:25 AM EDT [facility] Monocytes Absolute 510 0 - 1,296 /uL 11/25/2024 10:25 AM EDT [facility] Eosinophils Absolute 32 0 - 864 /uL 11/25/2024 10:25 AM EDT [facility] Basophils Absolute 73 0 - 108 /uL 11/25/2024 10:25 AM EDT [facility] Whole Blood 11/25/2024 8:42 AM EDT 11/25/2024 9:44 AM EDT Narrative [facility] - 11/25/2024 10:25 AM EDT Standing orders to be drawn: Every Sunday and before 9am and prior to patient taking morning medications. Liver Transplant Fax results to [phone] Call Critical results to [phone] us Harvey Domínguez III, MD LAB BLOOD ORDERABLE S Final Result [facility] [address] [place] [address], [facility] * (ABNORMAL) Hepatic Function Panel (11/25/2024 8:42 AM EDT) Total Bilirubin 0.7 0.0 - 1.5 mg/dL 11/25/2024 10:20 AM EDT [facility] Bilirubin, Direct 0.20 0.00 - 0.40 mg/dL 11/25/2024 10:20 AM EDT [facility] AST 9(L) 13 - 39 U/L 11/25/2024 10:20 AM EDT [facility] ALT 22 7 - 52 U/L 11/25/2024 10:20 AM EDT [facility] Alkaline Phosphatase 198(H) 36 - 125 U/L 11/25/2024 10:20 AM EDT [facility] Total Protein 7.0 6.4 - 8.9 g/dL 11/25/2024 10:20 AM EDT [facility] Albumin 4.5 3.5 - 5.7 g/dL 11/25/2024 10:20 AM EDT [facility] Bilirubin, Indirect 0.50 0.00 - 1.10 mg/dL 11/25/2024 10:20 AM EDT [facility] Plasma 11/25/2024 8:42 AM EDT 11/25/2024 9:47 AM EDT [facility] - 11/25/2024 10:20 AM EDT Standing orders to be drawn: Every Sunday and before 9am and prior to patient taking morning medications. Liver Transplant Fax results to [phone] Call Critical results to [phone] DO NOT REPLACE RENAL PANEL or HEPATIC FUNCTION PANEL w/ CMP, BMP or HEPATIC PROFILE Harvey Domínguez III, MD LAB BLOOD ORDERABLE S Final Result [facility] [address] * Tacrolimus level (11/25/2024 8:42 AM EDT) Tacrolimus (LC-MS) 11.6 3.0 - 15.0 ng/mL 11/25/2024 1:14 PM EDT [facility] Comment:Performed via liquid chromatography tandem mass spectrometry. Detection limit: 1 ng/mL. Individual target concentrations may vary due to target organ and time after transplant. This test has been developed and its performance characteristics determined by [facility] which is certified under the [...] 8:42 AM EDT 11/25/2024 9:44 AM EDT [facility] - 11/25/2024 1:14 PM EDT Standing orders to be drawn: Every Sunday and before 9am and prior to patient taking morning medications. Liver Transplant Fax results to [phone] Call Critical results to [phone] us Harvey Domínguez III, MD LAB BLOOD ORDERABLE S Final Result [facility] [address] [facility] [place] [address], [facility] * (ABNORMAL) Differential (11/11/2024 9:13 AM EDT) Neutrophils Relative 69.3 40.0 - 80.0 % 11/11/2024 10:31 AM EDT [facility] Lymphocytes Relative 17.6 15.0 - 45.0 % 11/11/2024 10:31 AM EDT [facility] Monocytes Relative 8.5 0.0 - 12.0 % 11/11/2024 10:31 AM EDT [facility] Eosinophils Relative 2.0 0.0 - 8.0 % 11/11/2024 10:31 AM EDT [facility] Basophils Relative 2.6(H) 0.0 - 1.0 % 11/11/2024 10:31 AM EDT [facility] nRBC 0 0 - 0 /100 WBC 11/11/2024 10:31 AM EDT [facility] Neutrophils Absolute 4,920 1,520 - 8,640 /uL 11/11/2024 10:31 AM EDT [facility] Lymphocytes Absolute 1,250 570 - 4,860 /uL 11/11/2024 10:31 AM EDT [facility] Monocytes Absolute 604 0 - 1,296 /uL 11/11/2024 10:31 AM EDT [facility] Eosinophils Absolute 142 0 - 864 /uL 11/11/2024 10:31 AM EDT [facility] Basophils Absolute 185(H) 0 - 108 /uL 11/11/2024 10:31 AM EDT [facility] Whole Blood 11/11/2024 9:13 AM EDT 11/11/2024 10:19 AM EDT Narrative [facility] - 11/11/2024 10:31 AM EDT Standing orders to be drawn: Every Sunday and before 9am and prior to patient taking morning medications. Liver Transplant Fax results to [phone] Call Critical results to [phone] us Harvey Domínguez III, MD LAB BLOOD ORDERABLE S Final Result [facility] [address] [facility] [place] [address], [facility] * (ABNORMAL) CBC (11/11/2024 9:13 AM EDT) WBC 7.1 3.8 - 10.8 10E3/uL 11/11/2024 10:31 AM EDT [facility] RBC 3.42(L) 4.20 - 5.80 10E6/uL 11/11/2024 10:31 AM EDT [facility] Hemoglobin 10.6(L) 13.2 - 17.1 g/dL 11/11/2024 10:31 AM EDT [facility] Hematocrit 31.3(L) 38.5 - 50.0 % 11/11/2024 10:31 AM EDT [facility] MCV 91.5 80.0 - 100.0 fL 11/11/2024 10:31 AM EDT [facility] MCH 31.0 27.0 - 33.0 pg 11/11/2024 10:31 AM EDT [facility] MCHC 33.8 32.0 - 36.0 g/dL 11/11/2024 10:31 AM EDT [facility] RDW 20.5(H) 11.0 - 15.0 % 11/11/2024 10:31 AM EDT [facility] Platelets 308 140 - 400 10E3/uL 11/11/2024 10:31 AM EDT [facility] MPV 6.1(L) 7.5 - 11.5 fL 11/11/2024 10:31 AM EDT [facility] Whole Blood 11/11/2024 9:13 AM EDT 11/11/2024 10:19 AM EDT Narrative [facility] - 11/11/2024 10:31 AM EDT Standing orders to be drawn: Every Sunday and before 9am and prior to patient taking morning medications. Liver Transplant Fax results to [phone] Call Critical results to [phone] us Harvey Domínguez III, MD LAB BLOOD ORDERABLE S Final Result [facility] [address] [place] [address], [facility] * (ABNORMAL) Renal Function Panel w/EGFR (11/11/2024 9:13 AM EDT) Sodium 141 133 - 146 mmol/L 11/11/2024 10:51 AM EDT [facility] Potassium 4.6 3.5 - 5.3 mmol/L 11/11/2024 10:51 AM EDT [facility] Chloride 108 98 - 110 mmol/L 11/11/2024 10:51 AM EDT [facility] CO2 24 21 - 33 mmol/L 11/11/2024 10:51 AM EDT [facility] Anion Gap 9 3 - 16 mmol/L 11/11/2024 10:51 AM EDT [facility] BUN 27(H) 7 - 25 mg/dL 11/11/2024 10:51 AM EDT [facility] Creatinine 1.14 0.60 - 1.30 mg/dL 11/11/2024 10:51 AM EDT [facility] Glucose 97 70 - 100 mg/dL 11/11/2024 10:51 AM EDT [facility] Calcium 8.6 8.6 - 10.3 mg/dL 11/11/2024 10:51 AM EDT [facility] Phosphorus 4.4 2.1 - 4.7 mg/dL 11/11/2024 10:51 AM EDT [facility] Albumin 3.8 3.5 - 5.7 g/dL 11/11/2024 10:51 AM EDT [facility] Osmolality, Calculated 297 278 - 305 mOsm/kg 11/11/2024 10:51 AM EDT [facility] EGFR 83 11/11/2024 10:51 AM EDT [facility] Comment:As of [...] 9:13 AM EDT 11/11/2024 10:19 AM EDT [facility] - 11/11/2024 10:51 AM EDT Standing orders to be drawn: Every Sunday and before 9am and prior to patient taking morning medications. Liver Transplant Fax results to [phone] Call Critical results to [phone] DO NOT REPLACE RENAL PANEL or HEPATIC FUNCTION PANEL w/ CMP, BMP or HEPATIC PROFILE us Harvey Domínguez III, MD LAB BLOOD ORDERABLE S Final Result [facility] [address] [place] [address], [facility] * (ABNORMAL) Hepatic Function Panel (11/11/2024 9:13 AM EDT) Total Bilirubin 1.0 0.0 - 1.5 mg/dL 11/11/2024 10:51 AM EDT [facility] Bilirubin, Direct 0.39 0.00 - 0.40 mg/dL 11/11/2024 10:51 AM EDT [facility] AST 15 13 - 39 U/L 11/11/2024 10:51 AM EDT [facility] ALT 26 7 - 52 U/L 11/11/2024 10:51 AM EDT [facility] Alkaline Phosphatase 125 36 - 125 U/L 11/11/2024 10:51 AM EDT [facility] Total Protein 5.9(L) 6.4 - 8.9 g/dL 11/11/2024 10:51 AM EDT [facility] Albumin 3.8 3.5 - 5.7 g/dL 11/11/2024 10:51 AM EDT [facility] Bilirubin, Indirect 0.61 0.00 - 1.10 mg/dL 11/11/2024 10:51 AM EDT [facility] Plasma 11/11/2024 9:13 AM EDT 11/11/2024 10:19 AM EDT [facility] - 11/11/2024 10:51 AM EDT Standing orders to be drawn: Every Sunday and before 9am and prior to patient taking morning medications. Liver Transplant Fax results to [phone] Call Critical results to [phone] DO NOT REPLACE RENAL PANEL or HEPATIC FUNCTION PANEL w/ CMP, BMP or HEPATIC PROFILE Harvey Domínguez III, MD LAB BLOOD ORDERABLE S Final Result [facility] [address] * Tacrolimus level (11/11/2024 9:13 AM EDT) Tacrolimus (LC-MS) 10.4 3.0 - 15.0 ng/mL 11/11/2024 1:22 PM EDT [facility] Comment:Performed via liquid chromatography tandem mass spectrometry. Detection limit: 1 ng/mL. Individual target concentrations may vary due to target organ and time after transplant. This test has been developed and its performance characteristics determined by [facility] which is certified under the [...] AM EDT 11/11/2024 10:19 AM EDT Narrative [facility] - 11/11/2024 1:22 PM EDT Standing orders to be drawn: Every Sunday and before 9am and prior to patient taking morning medications. Liver Transplant Fax results to [phone] Call Critical results to [phone] us Harvey Domínguez III, MD LAB BLOOD ORDERABLE S Final Result [facility] [address] [place] [address], [facility] * (ABNORMAL) Differential (11/04/2024 8:46 AM EDT) Differential Comments See Note 11/05/2024 12:05 AM EDT [facility] Comment: _Platelets Appear Decreased _Platelet Morphology Normal Myelocytes Relative 3.0(H) 0.0 - 0.0 % 11/05/2024 12:05 AM EDT [facility] Neutrophils Relative 73.0 40.0 - 80.0 % 11/05/2024 12:05 AM EDT [facility] Lymphocytes Relative 17.0 15.0 - 45.0 % 11/05/2024 12:05 AM EDT [facility] Monocytes Relative 6.0 0.0 - 12.0 % 11/05/2024 12:05 AM EDT [facility] Eosinophils Relative 1.0 0.0 - 8.0 % 11/05/2024 12:05 AM EDT [facility] Basophils Relative 0.0 0.0 - 1.0 % 11/05/2024 12:05 AM EDT [facility] Neutrophils Absolute 5,256 1,520 - 8,640 /uL 11/05/2024 12:05 AM EDT [facility] Myelocytes Absolute 216(H) 0 - 0 /uL 11/05/2024 12:05 AM EDT [facility] Lymphocytes Absolute 1,224 570 - 4,860 /uL 11/05/2024 12:05 AM EDT [facility] Monocytes Absolute 432 0 - 1,296 /uL 11/05/2024 12:05 AM EDT [facility] Eosinophils Absolute 72 0 - 864 /uL 11/05/2024 12:05 AM EDT [facility] Basophils Absolute 0 0 - 108 /uL 11/05/2024 12:05 AM EDT [facility] PLT Morphology Platelet morphology appears normal 11/05/2024 12:05 AM EDT [facility] Whole Blood 11/04/2024 8:46 AM EDT 11/04/2024 11:01 PM EDT Narrative [facility] - 11/05/2024 12:05 AM EDT Standing orders to be drawn: Every Sunday and before 9am and prior to patient taking morning medications. Liver Transplant Fax results to [phone] Call Critical results to [phone] Manual WBC differential performed per review criteria approved by the medical territory manager. us Harvey Domínguez III, MD LAB BLOOD ORDERABLE S Final Result [facility] [address] [facility] [place] [address], [facility] * (ABNORMAL) CBC (11/04/2024 8:46 AM EDT) WBC 7.2 3.8 - 10.8 10E3/uL 11/05/2024 12:05 AM EDT [facility] RBC 3.17(L) 4.20 - 5.80 10E6/uL 11/05/2024 12:05 AM EDT [facility] Hemoglobin 9.7(L) 13.2 - 17.1 g/dL 11/05/2024 12:05 AM EDT [facility] Hematocrit 28.6(L) 38.5 - 50.0 % 11/05/2024 12:05 AM EDT [facility] MCV 90.2 80.0 - 100.0 fL 11/05/2024 12:05 AM EDT [facility] MCH 30.5 27.0 - 33.0 pg 11/05/2024 12:05 AM EDT [facility] MCHC 33.8 32.0 - 36.0 g/dL 11/05/2024 12:05 AM EDT [facility] RDW 17.9(H) 11.0 - 15.0 % 11/05/2024 12:05 AM EDT [facility] Platelets 137(L) 140 - 400 10E3/uL 11/05/2024 12:05 AM EDT [facility] Platelet Estimate Decreased 11/05/2024 12:05 AM EDT [facility] MPV 8.4 7.5 - 11.5 fL 11/05/2024 12:05 AM EDT [facility] Whole Blood 11/04/2024 8:46 AM EDT 11/04/2024 11:01 PM EDT Narrative [facility] - 11/05/2024 12:05 AM EDT Standing orders to be drawn: Every Sunday and before 9am and prior to patient taking morning medications. Liver Transplant Fax results to [phone] Call Critical results to [phone] Peripheral blood smear was scanned per review criteria approved by the laboratory medical territory manager. us Harvey Domínguez III, MD LAB BLOOD ORDERABLE S Final Result [facility] [address] * (ABNORMAL) Renal Function Panel w/EGFR (11/04/2024 8:46 AM EDT) Sodium 139 133 - 146 mmol/L 11/04/2024 10:06 AM EDT [facility] Potassium 3.8 3.5 - 5.3 mmol/L 11/04/2024 10:06 AM EDT [facility] Chloride 106 98 - 110 mmol/L 11/04/2024 10:06 AM EDT [facility] CO2 25 21 - 33 mmol/L 11/04/2024 10:06 AM EDT [facility] Anion Gap 8 3 - 16 mmol/L 11/04/2024 10:06 AM EDT [facility] BUN 34(H) 7 - 25 mg/dL 11/04/2024 10:06 AM EDT [facility] Creatinine 1.08 0.60 - 1.30 mg/dL 11/04/2024 10:06 AM EDT [facility] Glucose 92 70 - 100 mg/dL 11/04/2024 10:06 AM EDT [facility] Calcium 7.8(L) 8.6 - 10.3 mg/dL 11/04/2024 10:06 AM EDT [facility] Phosphorus 1.9(L) 2.1 - 4.7 mg/dL 11/04/2024 10:06 AM EDT [facility] Albumin 3.5 3.5 - 5.7 g/dL 11/04/2024 10:06 AM EDT [facility] Osmolality, Calculated 295 278 - 305 mOsm/kg 11/04/2024 10:06 AM EDT [facility] EGFR 88 11/04/2024 10:06 AM EDT [facility] Comment:As of [...] AM EDT 11/04/2024 9:32 AM EDT Narrative [facility] - 11/04/2024 10:06 AM EDT Standing orders to be drawn: Every Sunday and before 9am and prior to patient taking morning medications. Liver Transplant Fax results to [phone] Call Critical results to [phone] DO NOT REPLACE RENAL PANEL or HEPATIC FUNCTION PANEL w/ CMP, BMP or HEPATIC PROFILE us Harvey Domínguez III, MD LAB BLOOD ORDERABLE S Final Result [facility] [address] [place] [address], [facility] * (ABNORMAL) Hepatic Function Panel (11/04/2024 8:46 AM EDT) Total Bilirubin 1.3 0.0 - 1.5 mg/dL 11/04/2024 10:06 AM EDT [facility] Bilirubin, Direct 0.57(H) 0.00 - 0.40 mg/dL 11/04/2024 10:06 AM EDT [facility] AST 20 13 - 39 U/L 11/04/2024 10:06 AM EDT [facility] ALT 67(H) 7 - 52 U/L 11/04/2024 10:06 AM EDT [facility] Alkaline Phosphatase 133(H) 36 - 125 U/L 11/04/2024 10:06 AM EDT [facility] Total Protein 5.4(L) 6.4 - 8.9 g/dL 11/04/2024 10:06 AM EDT [facility] Albumin 3.5 3.5 - 5.7 g/dL 11/04/2024 10:06 AM EDT [facility] Bilirubin, Indirect 0.73 0.00 - 1.10 mg/dL 11/04/2024 10:06 AM EDT [facility] Plasma 11/04/2024 8:46 AM EDT 11/04/2024 9:32 AM EDT Narrative [facility] - 11/04/2024 10:06 AM EDT Standing orders to be drawn: Every Sunday and before 9am and prior to patient taking morning medications. Liver Transplant Fax results to [phone] Call Critical results to [phone] DO NOT REPLACE RENAL PANEL or HEPATIC FUNCTION PANEL w/ CMP, BMP or HEPATIC PROFILE us Harvey Domínguez III, MD LAB BLOOD ORDERABLE S Final Result [facility] [address] [place] [address], [facility] * Tacrolimus level (11/04/2024 8:46 AM EDT) Tacrolimus (LC-MS) 9.0 3.0 - 15.0 ng/mL 11/04/2024 3:14 PM EDT [facility] Comment:Performed via liquid chromatography tandem mass spectrometry. Detection limit: 1 ng/mL. Individual target concentrations may vary due to target organ and time after transplant. This test has been developed and its performance characteristics determined by [facility] which is certified under the [...] morning medications. Liver Transplant Fax results to [phone] Call Critical results to [phone] us Harvey Domínguez III, MD LAB BLOOD ORDERABLE S Final Result [facility] [address] documented in this encounter Visit Diagnoses [...] as of this encounter Care Teams Clinical Nutrition Manager Relationship Specialty Start Date End Date Enedina Mcguire NP [address] [place] [address] PCP - General Internal Medicine 10/05/24 Maureen Pantoja, ЮЛИЯ Txp Post Coordinator Transplant Hepatology 10/28/24 documented as of this encounter
--- OUTSIDE RECORDS SUMMARY | 2024-12-04 07:52 | XMS_ITS | Encounter Summary ---
Author Organization Healthcare Address [address] [place] [address] Care Team Providers Care Cellars Supervisor Name Role Phone Jony Conde MD Primary Care Provider [phone] Lj Tapia LOAN OPERATIONS MANAGER Unavailable [phone] Enedina Mcguire LOAN OPERATIONS MANAGER Primary Care Provider + Nuria Fall PROFESSIONAL ORGANIZER Unavailable Unavaila ble Encounter Details Date Type Department Care Team (Late st Contact Info) Description 07/04/2022 Orders Only External Location [address] [place] [address] Presley Montes De Oca MD 1720 [facility] [address] [place], [place] [id number] Social History Tobacco Use Types Packs/Day Years [...] PM EDT Office Visit [facility] [address], [address] [place] [address] Vincent Braga MD [address] [facility] [address] [place] [phone] documented as of this encounter Procedures Procedure [...] on filedocumented in this encounter Care Teams Cellars Supervisor Relationship Specialty Start Date End Date Jony Conde MD 9 [facility] [address] [place] [address] PCP - General 07/18/22 12/03/22 Enedina Mcguire APRN [address] [place] [address] PCP - General 12/04/22 Lj Tapia APRN [address] [place] [address] Referring Physician Gastroenterology 07/18/22 Nuria Fall LPN [facility] TCM Nurse 07/24/24 08/23/24 documented as of this encounter
--- OUTSIDE RECORDS SUMMARY | 2024-12-04 07:52 | XMS_ITS | Encounter Summary ---
Author Organization [facility] Address [address] [place] [address] Care Team Providers Care Aircraft Landing Gear Inspector Name Role Phone Enedina Mcguire NP Primary Care Provider + [phone] Maureen Pantoja RN Unavailable Unavail able Source [...] release of HIV test results or diagnoses. [id number] Health Encounter Details Date Type Department Care Team (Late st Contact Info) Description 11/04/2024 Nutrition [facility] Kidney Transplant at [address] [place] [phone] Ben Weiss, DMITRY Social History Tobacco Use [...] Recorded In the past 12 months has [employer], gas, oil, or water [employer] threatened to shut off services in [...] day. blood-glucose meter (TRUE METRIX GLUCOSE METER) [facility] Use to test blood sugar up to [...] = 12 units lancets (ACCU-CHEK SOFTCLIX LANCETS) [facility] Use to test blood sugar up to [...] times a day. naloxone (NARCAN) 4 mg/actuation [place] Apply 1 spray in one nostril [...] as of this encounter Care Teams Aircraft Landing Gear Inspector Relationship Specialty Start Date End Date Enedina Mcguire NP [address] [place] [address] PCP - General Internal Medicine 10/05/24 Maureen Pantoja, RN Txp Post Coordinator Transplant Hepatology 10/28/24 documented as of this encounter
--- OUTSIDE RECORDS SUMMARY | 2024-12-04 07:52 | XMS_ITS | Encounter Summary ---
Author Organization Healthcare Address [address] [place] [address] Care Team Providers Care Bridge Game Director Name Role Phone Jony Conde MD Primary Care Provider [phone] Lj Tapia DIRECTOR OF MEDICAL SERVICES Unavailable [phone] Enedina Mcguire DIRECTOR OF MEDICAL SERVICES Primary Care Provider + Nuria Fall CLERK TELEGRAPH SERVICE Unavailable Unavaila ble Encounter Details Date Type Department Care Team (Late st Contact Info) Description 07/03/2022 Orders Only External Location [address] [place] [address] Presley Montes De Oca MD 1720 [facility] 302 [place], [place] [id number] Social History Tobacco Use Types Packs/Day Years [...] PM EDT Office Visit [facility] [address], [address] [place] [address] Vincent Braga MD [address] [facility] [address] [place] [phone] documented as of this encounter Procedures Procedure [...] on filedocumented in this encounter Care Teams Bridge Game Director Relationship Specialty Start Date End Date Jony Conde MD [address] [place] [address] [address] [place] [address] PCP - General 07/18/22 12/03/22 Enedina Mcguire APRN [address] [place] [address] PCP - General 12/04/22 Lj Tapia APRN [address] [place] [address] Referring Physician Gastroenterology 07/18/22 Nuria Fall LPN [facility] TCM Nurse 07/24/24 08/23/24 documented as of this encounter
--- OUTSIDE RECORDS SUMMARY | 2024-12-04 07:52 | XMS_ITS | Encounter Summary ---
[facility] [address] [place] [address] Care Team Providers Care Primary School Teacher Name Role Phone Enedina Mcguire APRN Primary Care Provider + Reason for Visit * Reason Onset Date Comments Med Refill 10/20/2024 Encounter Details Date Type Department Care Team (Late st Contact Info) Description 10/20/2024 Refill [facility] INTERNAL MEDICINE [address] [place] [address] Enedina Mcguire APRN [address] [place] [address] Hepatic encephalopathy; Acquired hypothyroidism; Secondary [...] alcohol) 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 [facility] Utilities Answer Date Recorded In the past 12 months has [employer], gas, oil, or water [employer] threatened to shut off services in your [...] Score 0 10/02/2022 [facility] - Occupational Stress Questionnaire Answer Date Recorded [...] GED or equivalent No 07/09/2024 Preferred Language Ugandan 07/09/2024 PHQ-2 Answer Date Recorded Patient Health [...] Anderson Relationship: Self Best call back number: [phone] Requested Prescriptions: Requested Prescriptions Pending Prescriptions Disp [...] Daily. Pharmacy where request should be sent: [facility] [address] [place], [place] [address]DO [address] [phone] [facility] [phone] FX Last office visit with prescribing clinician: [...] Description 12/04/2024 2:15 PM EDT Office Visit [facility] PAIN [facility] [address] [address] Vazquez Christie PA-C [address] [place] [address] documented as of this encounter Visit Diagnoses Diagnosis Hepatic encephalopathy Acquired hypothyroidism Unspecified hypothyroidism Secondary esophageal varices without bleeding documented in this encounter Additional Health Concerns Assessment Noted Time PHQ-2 Depression Total Score: 1 12/31/19 24 3:25 PM EDT documented as of this encounter Care Teams Primary School Teacher Relationship Specialty Start Date End Date Enedina Mcguire APRN [address] [place] [address] PCP - General Nurse Practitioner 09/04/22 10/21/24 documented as of this encounter
--- OUTSIDE RECORDS SUMMARY | 2024-12-04 07:52 | XMS_ITS | Clinical Summary ---
Author Organization Healthcare Address [address] [place] [address] Care Team Providers Care Hand Laminator Name Role Phone Lj Tapia Rohini RICKS Unavailable [phone] Enedina Mcguire APRN Primary Care Provider + [...] Type Department Care Team Description 11/27/2024 Telephone [facility] Nephrology, Bone & Mineral Metabolism [address] [facility], [address] [place] [address] Chelsy Villanueva 09/29/2024 2:20 PM EDT Office Visit [facility] Nephrology, Bone & Mineral Metabolism [address], [address] [place] [address] Yovanny Flores MD NADIYA (acute kidney injury) ([facility]) (Primary Dx); Portal hypertension ([facility]); Secondary esophageal varices with bleeding ([facility]) 09/29/2024 Travel 09/25/2024 Telephone [facility] Nephrology, Bone & Mineral Metabolism [address], [address] [place] [address] Chelsy Villanueva from Last 3 [...] often do you attend chur ch or roman catholic services? Patient unable to answer 07/14/2024 Do you belong to any clubs o r organizations such as restorationist groups, unions, fraternal or athletic groups, or [...] Health Questionnaire-2 Score 2 09/29/2024 [facility] - Occupational Stress Questionnaire Answer Date [...] drink first t deborah in the morning (EYE-CRUSHED STONE GRADER) to steady your nerves or to get [...] Upcoming Encounters Date Type Department Care Team ([facility] st Contact Info) Description 01/08/2025 3:20 PM EDT Office Visit [facility] [place] [address] [facility], [address] [place] [address] Vincent Braga MD [address] [place] [phone] Health Maintenance Due Date Last Done Comments [...] 2 - 13+ 2-dose series) 10/11/2010 09/13/2010 [id number] Vaccine (4 - season) 2024 03/17/2021, 07/25/2020, [...] this topic Medical Devices Implanted Type Area Cloth Washer Operator Device Identifier Shelf Expiration Date Model / Serial / Lot Concerto [place] Coil-07/03/2022 Implanted:06/15 by Timmy Brunner MD (Quantity not on file) Coil Abdomen Description:Multiple Coil Co ncerto Pgla [place] Detach COILS implanted on 07/03/2022 by Timmy Brunner MD at [facility]--info can be found in Care Everywhere for [facility] as of 11/15/23 Dona Coil-07/03/2022 Implanted:06/15 by Timmy Brunner MD (Quantity not on file) Coil Abdomen [employer] Description:Coil Emb Dona 3.7/Implanted: Qty: 1 on 07/03/2022 by Timmy Brunner MD at [facility] Plate Plate N/A: Neck Plug Vasc Anton Emb Amplatzer Implanted:06/15 by Timmy Brunner MD (Quantity not on file) Plug Other Vein / / [id number] Description:Plug Vasc Anton Em b Ampltz .027 [id number] - [id number] Implanted: Qty: 1 on 07/03/2022 by Timmy Brunner MD at [facility] Stent Gastro Panc 5fr 5cm - [id number] Implanted:Qty: 1 on 11/20/2023 by Devang Mcghee, ЮЛИЯ at [facility] Pancreas [employer]-[id number] 08/13/2026 [id number] / / [id number] Procedures Procedure Name Priority Date/Time Associated Diagnosis [...] EST 07/14/2024 4:56 PM EST Laureano Salinas POLICE COMMISSIONER, DNP LAB BLOOD ORDERA BLES Final Result [facility] [address] [place] [address] * Hepatitis C Antibody (07/14/2024 4:31 PM EST) Hepatitis C Antibody Negative Negative 07/14/2024 5:27 PM EST HEALTHCARE LAB Blood Venous blood specimen / Unknown Venipuncture / Unknown 07/14/2024 4:31 PM EST 07/14/2024 4:54 PM EST Laureano Salinas APRN, [facility] LAB BLOOD ORDERA BLES Final Result [facility] [address] [place] [address] from Last 3 Months or Most Recently Relevant to Health Maintenance Insurance [facility] Advance Directives * Full Code (Latest Code Status on File) Date Activated Date Inactivated Comments 07/11/2024 11:04 PM 07/23/2024 6:27 PM Question Answer Comments Patient has decision-making capacity? Yes * Full Code Date Activated Date Inactivated Comments 11/14/2023 10:15 PM 11/27/2023 9:08 PM Question Answer Comments Patient has decision-making capacity? Yes Care Teams Hand Laminator Relationship Specialty Start Date End Date Enedina Mcguire APRN [address] [place] [address] PCP - General 12/04/22 Lj Tapia APRN [address] [place] [address] Referring Physician Gastroenterology 07/18/22
--- OUTSIDE RECORDS SUMMARY | 2024-12-04 07:52 | XMS_ITS | Encounter Summary ---
Author Organization [facility] Address [address] [place] [address] Care Team Providers Care Continuous Churn Buttermaker Name Role Phone Enedina Mcguire NP Primary Care Provider [phone] Source Comments This information has been disclosed [...] release of HIV test results or diagnoses. [id number] Health Encounter Details Date Type Department Care Team (Late st Contact Info) Description 10/27/2024 Chart Note [facility] Kidney Transplant at [address] [place] [phone] Karen Rosen, RN I have verified that [...] Recorded In the past 12 months has [employer], gas, oil, or water [employer] threatened to shut off services in your [...] documented as of this encounter Care Teams Continuous Churn Buttermaker Relationship Specialty Start Date End Date Enedina Mcguire NP [address] [place] [address] PCP - General Internal Medicine 10/05/24 documented as of this encounter
--- OUTSIDE RECORDS SUMMARY | 2024-12-04 07:52 | XMS_ITS | Encounter Summary ---
[facility] [address] [place] [address] Care Team Providers Care Aircraft Instrument Engineer Name Role Phone Enedina Mcguire APRN Primary Care Provider + Reason for Visit * Reason Onset Date Comments DR SONG - RX REFILL 10/20/2024 Encounter Details Date Type Department Care Team (Late st Contact Info) Description 10/20/2024 Telephone [facility] PAIN MANAGEMENT [address] [address] Tye Song MD 1760 [facility] [address] [place] [address] DR SONG - RX REFILL Social History Tobacco Use Types Packs/Day Years Used Date Smoking Tobacco: Former Cigarettes 4 20 Passive Smoke Exposure: Past Smokeless Tobacco: Current Comments:MARIJUANA USE ABOUT 2X PER WEEK - reports no use 08-05-2024 Alcohol Use Standard Drinks/Week Comments Not Currently 0 (1 standard drink = 0.6 oz pure alcohol) 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 [facility] Utilities Answer Date Recorded In the past 12 months has [employer], gas, oil, or water [employer] threatened to shut off services in your [...] Brief Depression Severity Measure Score 0 10/02/2022 [facility] - Occupational Stress Questionnaire Answer Date [...] GED or equivalent No 07/09/2024 Preferred Language Greek 07/09/2024 PHQ-2 Answer Date Recorded Patient Health [...] HOURS Pharmacy where request should be sent: [facility] [place] [place] [facility] [address] [phone] [facility] [phone] FX [phone] Last office visit with prescribing clinician: 08/06/2023 [...] Description 12/04/2024 2:15 PM EDT Office Visit [facility] PAIN MANAGEMENT [address] [address] Vazquez Christie PA-C [address] [address] documented as of this encounter Visit Diagnoses Not on filedocumented in this encounter Additional Health Concerns Assessment Noted Time PHQ-2 Depression Total Score: 1 12/31/19 24 3:25 PM EDT documented as of this encounter Care Teams Aircraft Instrument Engineer Relationship Specialty Start Date End Date Enedina Mcguire APRN [address] [place] [address] PCP - General Nurse Practitioner 09/04/22 10/21/24 documented as of this encounter
--- OUTSIDE RECORDS SUMMARY | 2024-12-04 07:52 | XMS_ITS | Encounter Summary ---
Author Organization [facility] Address [address] [place] [address] Care Team Providers Care Buyer Intern Name Role Phone Enedina Mcguire NP Primary Care Provider + [phone] Maureen Pantoja RN Unavailable Unavail able Source [...] release of HIV test results or diagnoses. [id number] Reason for Visit * Reason Comments Transplant Review Encounter Details Date Type Department Care Team (Late st Contact Info) Description 10/27/2024 Pharmacy Services [facility] [address] [place] [phone] Opal Cox, TaniD Social History Tobacco [...] Recorded In the past 12 months has [employer], gas, oil, or water [employer] threatened to shut off services in [...] of Care Patient's prescriptions were sent to [facility] for a Transplant benefits review. Julien Anderson received a Kidney/Liver Transplant on 10/26-10/27/24 at [facility]. The patient's discharge medications were sent to [facility] for anticipated discharge of 11/03/24. The patient has a [employer] commercial insurance plan to cover prescriptions. Currently, the patient's co-pay for all medications is listed below: Acetaminophen 325 mg - $4 Alcohol swabs - $0 Aspiring 81mg - $4 Atovaquone 750 mg/5 ml - $0 Dexcom G7 Psychology Clinician- $0 Dexcom G7 Sensor- $0 Eliquis 2.5mg [...] $0 Specialty Pharmacy Requirements: Name of Pharmacy: [facility] Specialty Phone Number: Prescriptions Transferred at Discharge Date: The patient could have potential eligibility for the pharmaceutical company medication assistance program for each of these medications. Mr Anderson's total cost of discharge prescriptions is currently $16. This total is subject to changewith the addition or change in any of the prescriptions sent to [facility]. A call was placed to Mr Anderson's room to discuss total cost amount from above and encourage patientto set up profile with [facility] Specialty. [facility] Specialty Pharmacy confirmed delivery [...] The patient has been referred to the [facility] Transplant Team. The patient should visit Medication Access for assistance if problems arise with the prescriptions. If questions arise regarding discharge medications, please call [phone]. Opal Cox Pharm D Transitions of Care [phone] documented in this encounter Plan of Treatment [...] as of this encounter Care Teams Buyer Intern Relationship Specialty Start Date End Date Enedina Mcguire NP [address] [place] [address] PCP - General Internal Medicine 10/05/24 Maureen Pantoja, ЮЛИЯ Txp Post Coordinator Transplant Hepatology 10/28/24 documented as of this encounter
--- OUTSIDE RECORDS SUMMARY | 2024-12-04 07:52 | XMS_ITS | Clinical Summary ---
Author Organization [facility] Address [address] [place] [address] Care Team Providers Care Road Traffic Controller Name Role Phone Enedina Mcguire APRN Primary [...] Type Department Care Team Description 10/27/2024 Telephone [facility] [address] [place] [phone] Enedina Mcguire, CIRCUS TRAIN SUPERVISOR CALLBACK 10/22/2024 2:15 PM EDT Office Visit [facility] [address] [address] Vazquez Christie PA-C Cervical radiculopathy (Primary Dx); Cervical spondylosis without myelopathy; Cervical pain (neck); Long-term use of high-risk medication; Therapeutic drug monitoring 10/22/2024 Travel 10/21/2024 Telephone [facility] [address] [place] [phone] Enedina Mcguire APRN New Med Request 10/20/2024 Telephone [facility] [address] [address] BURGESS - RX REFILL 10/20/2024 Telephone [facility] [address] [place] [phone] Enedina Mcgurie APRN Med Management 10/20/2024 Refill [facility] [address] [place] [phone] Enedina Mcguire, CIRCUS TRAIN SUPERVISOR Hepatic encephalopathy; Acquired hypothyroidism; Secondary esophageal varices without bleeding 10/17/2024 Telephone [facility] [address] [place] [phone] Enedina Mcguire APRN 10/07/2024 Results Follow-Up [facility] [address] [place] [address] Shayla Enedina G, CIRCUS TRAIN SUPERVISOR 10/07/2024 Results Follow-Up [facility] [address] [place] [phone] Enedina Mcguire, CIRCUS TRAIN SUPERVISOR 09/19/2024 Refill [facility] [address] [place] [address] Enedina Mcguire, CIRCUS TRAIN SUPERVISOR Cervical pain (neck); Long-term use of high-risk [...] on 08-05-2024 [facility] Utilities Answer Date Recorded In the past 12 months has e [employer], gas, oil, or water company threatened to [...] Depression Severity Measure Score 0 10/02/2022 [facility] of Occupat ional Health - Occupational Stress [...] GED or equivalent No 07/09/2024 Preferred Language Slovenian 07/09/2024 PHQ-2 Answer Date Recorded Patient Health [...] 12/04/2024 2:15 PM EDT Office Visit [facility] [address] [place] [address] Vazquez Christie PA-C [address] [facility] [address] [place] [address] Health Maintenance Due Date Last Done Comments [...] 0-49 Discontinued Medical Devices Implanted Type Area Forest And Conservation Worker Device Identifier Shelf Expiration Date Model / Serial / Lot Coil Concerto Pgla Hel Detach Sys 10mm 30cm - [id number] Implanted:Qty: 1 on 07/03/2022 by Timmy Brunner MD at [facility] Implant Left: Vein EV3 A [employer] [id number] / / [id number] Description:Coil is in the s hort gastric vein Coil Concerto Nyl Madison Detach Sys 10mm 30cm - [id number] Implanted:Qty: 1 on 07/03/2022 by Timmy Brunner MD at [facility] Implant Left: Vein EV3 A COVIDISympler [id number] / / [id number] Description:Short gastric ve in Coil Concerto Nyl Madison Detach Sys 10mm 30cm - [id number] Implanted:Qty: 1 on 07/03/2022 by Timmy Brunner MD at [facility] Implant Left: Vein EV3 A COVIDISympler [id number] / / [id number] Description:Short gasrtic ve in Coil Concerto Nyl Madison Detach Sys 10mm 30cm - [id number] Implanted:Qty: 1 on 07/03/2022 by Timmy Brunner MD at [facility] Implant Left: Vein EV3 A [employer] [id number] / / [id number] Description:Short gastric ve in Coil Concerto Nyl Madison Detach Sys 8mm 30cm - [id number] Implanted:Qty: 1 on 07/03/2022 by Timmy Brunner MD at [facility] Implant Left: Vein EV3 A [employer] [id number] / / [id number] Description:Short gastric ve in Coil Concerto Nyl Madison Detach Sys 8mm 30cm - [id number] Implanted:Qty: 1 on 07/03/2022 by Timmy Brunner MD at [facility] Implant Left: Vein EV3 A [employer]ISmash [employer] [id number] / / [id number] Description:Short gastric ve in Sys Del Liq Emb Trufill Nbca 1g Vl - [id number] Implanted:Qty: 1 on 07/03/2022 by Timmy Brunner MD at [facility] Implant Left: Vein [facility] [id number] / / [id number] Description:Short gastric ve in Plug Vasc Anton Emb Ampltz .027 7fs3f88lp - [id number] Implanted:Qty: 1 on 07/03/2022 by Timmy Brunner MD at [facility] Implant Left: Vein [employer] [id number] / / [id number] Description:Coronary vein Coil Concerto Nyl Madison Detach Sys 8mm 30cm - [id number] Implanted:Qty: 1 on 07/03/2022 by Timmy Brunner MD at [facility] Implant Left: Vein EV3 A [employer] [id number] / / [id number] Description:CORONARY VEIN Gelatin Emb Embocube 5.02mm 50mg Red - [id number] Implanted:Qty: 1 on 07/03/2022 by Timmy Brunner MD at [facility] Implant Left: Vein [employer] [id number] / / [id number] Description:SHORT GASTRIC VE IN Coil Emb Dona 3.7/Lp .035in 14cm 12mm - [id number] Implanted:Qty: 1 on 07/03/2022 by Timmy Brunner MD at [facility] Implant Left: Vein DAVID [id number] / / [id number] Description:SHORT GASTRIC VE IN Coil Concerto Pgla Madison Detach Sys 12mm 30cm - [id number] Implanted:Qty: 1 on 07/03/2022 by Timmy Brunner MD at [facility] Implant Left: Vein EV3 A [employer] [id number] / / [id number] Description:Short gastric ve in Coil Concerto Nyl Madison Detach Sys 8mm 30cm - [id number] Implanted:Qty: 1 on 07/03/2022 by Timmy Brunner MD at [facility] Implant Left: Vein EV3 A [employer] [id number] / / [id number] Description:SHORT GASTRIC VE IN Coil Concerto Nyl Madison Detach Sys 8mm 30cm - [id number] Implanted:Qty: 1 on 07/03/2022 by Timmy Brunner MD at [facility] Implant Left: Vein EV3 A [employer] [id number] / / [id number] Description:Short gastric ve in Coil Concerto Nyl Madison Detach Sys 8mm 30cm - [id number] Implanted:Qty: 1 on 07/03/2022 by Timmy Brunner MD at [facility] Implant Left: Vein EV3 A [employer] [id number] / / [id number] Description:Short gastric ve in Coil Concerto Pgla Hel Detach Sys 14mm 40cm - [id number] Implanted:Qty: 1 on 07/03/2022 by Timmy Brunner MD at [facility] Implant Left: Vein EV3 A [employer] [id number] / / [id number] Description:Short gastric ve in Coil Concerto Pgla Hel Detach Sys 14mm 40cm - [id number] Implanted:Qty: 1 on 07/03/2022 by Timmy Brunner MD at [facility] Implant Left: Vein EV3 A [employer] [id number] / / [id number] Description:Short gastric ve in Coil Concerto Pgla Madison Detach Sys 14mm 30cm - [id number] Implanted:Qty: 1 on 07/03/2022 by Timmy Brunner MD at [facility] Implant Left: Vein EV3 A [employer] [id number] / / [id number] Description:Short gastric ve in Coil Concerto Pgla Madison Detach Sys 14mm 30cm - [id number] Implanted:Qty: 1 on 07/03/2022 by Timmy Brunner MD at [facility] Implant Left: Vein EV3 A [employer] [id number] / / [id number] Description:Short gastric ve in Coil Concerto Pgla Madison Detach Sys 14mm 30cm - [id number] Implanted:Qty: 1 on 07/03/2022 by Timmy Brunner MD at [facility] Implant Left: Vein EV3 A [employer] [id number] / / [id number] Description:Short gastric ve in Procedures Procedure Name Priority Date/Time Associated Diagnosis Comments SCANNED - LABS 12/02/2024 SCANNED - LABS 12/02/2024 SCANNED - LABS 12/02/2024 SCANNED - LABS 12/02/2024 SCANNED - LABS 11/20/2024 SCANNED - LABS [...] to Health Maintenance Results * LABS SCANNED (12/02/2024) Only the most recent of24 resultswithin the time period is included. Enedina Mcguire APRN LAB BLOOD ORDERABLES Fin al Result * IMAGING SCANNED (10/17/2024) Only the most recent of6 resultswithin the time period is included. Anatomical Region Laterality Modality Radiographic Rachel ging us Enedina Mcguire APRN IMG DIAGNOSTIC IMAGING O RDERABLES Final Result from Last 3 Months Insurance [facility] Advance Directives * CPR (Attempt to Resuscitate) [...] Of Support Discussed With: Patient Care Teams Road Traffic Controller Relationship Specialty Start Date End Date Enedina Mcguire APRN [address] [place] [address] PCP - General Nurse Practitioner 10/27/24
--- OUTSIDE RECORDS SUMMARY | 2024-12-04 07:52 | XMS_ITS | Encounter Summary ---
[facility] Organization [facility] Address [address] [place] [address] Care Team Providers Care Can Filling And Closing Machine Tender Name Role Phone Enedina Mcguire APRN Primary Care Provider + Reason for Visit * Reason Onset Date Comments Med Management 10/20/2024 Encounter Details Date Type Department Care Team ([facility] st Contact Info) Description 10/20/2024 Telephone [facility] [address] [place] [address] Enedina Mcguire APRN [address] [place] [address] Med Management Social History Tobacco Use Types Packs/Day Years Used Date Smoking Tobacco: Former Cigarettes 4 20 Passive Smoke Exposure: Past Smokeless Tobacco: Current Comments:MARIJUANA USE ABOUT 2X PER WEEK - reports no use 08-05-2024 Alcohol Use Standard Drinks/Week Comments Not Currently 0 (1 standard drink = 0.6 oz pure alcohol) 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 [facility] Utilities Answer Date Recorded In the past 12 months has [employer], [employer], oil, or water [employer] threatened to shut off services in your [...] Brief Depression Severity Measure Score 0 10/02/2022 [facility] - Occupational Stress Questionnaire Answer [...] GED or equivalent No 07/09/2024 Preferred Language Cypriot 07/09/2024 PHQ-2 Answer Date Recorded Patient Health [...] Anderson Relationship: Self Best call back number: [phone] What medication are you requesting: POTASSIUM CHLORIDE 20 MEQ 2 TIMES A DAY SODIUM BICARB CIPROFLAXIN 500 MG DAILY URSODIAL 200 MG CAPSULE TORSEMIDE 20 MG ONCE DAILY OXYCODONE 5 MG ONE TIME EVERY SIX HOURS NEEDED If a prescription is needed, what is your preferred pharmacy and phone number: [facility] MD - [address] [phone] [facility] [phone] Additional notes: PATIENT IS CURRENTLY UNABLE TO COME IN FOR AN APPOINTMENT, BUT NEEDS THESE MEDICATIONS. documented in this encounter Plan of Treatment Upcoming Encounters Date Type Department Care Team (Late st Contact Info) Description 12/04/2024 2:15 PM EDT Office Visit [facility] [address] [facility] [address] [place] [address] Vazquez Christie PA-C [address] [address] documented as of this encounter Visit Diagnoses Diagnosis Acquired hypothyroidism Unspecified hypothyroidism Secondary esophageal varices without bleeding documented in this encounter Additional Health Concerns Assessment Noted Time PHQ-2 Depression Total Score: 1 12/31/19 24 3:25 PM EDT documented as of this encounter Care Teams Can Filling And Closing Machine Tender Relationship Specialty Start Date End Date Enedina Mcguire APRN [address] [place] [address] PCP - General Nurse Practitioner 09/04/22 10/21/24 documented as of this encounter
--- OUTSIDE RECORDS SUMMARY | 2024-12-04 07:52 | XMS_ITS | Encounter Summary ---
Author Organization Healthcare Address [address] [place] [address] Care Team Providers Care Tile Setter Name Role Phone Jony Conde MD Primary Care Provider [phone] Lj Tapia HEEL SEWER Unavailable [phone] Enedina Mcguire HEEL SEWER Primary Care Provider + Nuria Fall HEAD KNITTING MACHINE FIXER Unavailable Unavaila ble Encounter Details Date Type Department Care Team (Late st Contact Info) Description 07/04/2022 Orders Only External Location [address] [place] [address] Presley Montes De Oca MD [address] [facility] [address] [place], [place] [id number] Social History Tobacco Use Types Packs/Day Years [...] PM EDT [facility] [address], [address] [place] [address] Vincent Braga MD [address] [facility] [address] [place] [address] documented as of this encounter Procedures Procedure [...] on filedocumented in this encounter Care Teams Tile Setter Relationship Specialty Start Date End Date Jony Conde MD [address] [place] [address] [address] [place] [address] PCP - General 07/18/22 12/03/22 Enedina Mcguire APRN [address] [place] [address] PCP - General 12/04/22 Lj Tapia APRN [address] [place] [address] Referring Physician Gastroenterology 07/18/22 Nuria Fall LPN [facility] TCM Nurse 07/24/24 08/23/24 documented as of this encounter
--- OUTSIDE RECORDS SUMMARY | 2024-12-04 07:52 | XMS_ITS | Encounter Summary ---
Author Organization [facility] Address [address] [place] [address] Care Team Providers Care Lithographic Retoucher Apprentice Name Role Phone Enedina Mcguire NP Primary Care Provider + [phone] Maureen Pantoja RN Unavailable Unavail able Source [...] release of HIV test results or diagnoses. [id number] Health Encounter Details Date Type Department Care Team (Late st Contact Info) Description 10/27/2024 [address] [facility] Liver Transplant at [address] [place] [phone] Crista Power, RN I introduced myself as inpatient liver/kidney patient coordinator, Social History Tobacco Use Types Packs/Day Years Used Date Smoking Tobacco: Former Cigarettes Smokeless Tobacco: Current Alcohol Use Standard Drinks/Week Comments Yes 0 (1 standard drink = 0.6 oz pure alcohol) History of alcohol abuse, reports no use in 3 week- typically endorses use as 4 glasses of wine a days Utilities Answer Date Recorded In the past 12 months has [employer], gas, oil, or water [employer] threatened to shut off services in your [...] EDT I introduced myself as inpatient liver/kidney patient coordinator, explained role and provided my contact [...] and reinforcement on 10/29/24 @ 1300. Julien Andreson has Salma on his phone already, instructions [...] documented as of this encounter Care Teams Lithographic Retoucher Apprentice Relationship Specialty Start Date End Date Enedina Mcguire NP [address] [place] [address] PCP - General Internal Medicine 10/05/24 Maureen Pantoja, ЮЛИЯ Txp Post Coordinator Transplant Hepatology 10/28/24 documented as of this encounter
--- OUTSIDE RECORDS SUMMARY | 2024-12-04 07:52 | XMS_ITS | Encounter Summary ---
Author Organization Healthcare Address [address] [place] [address] Care Team Providers Care Gang Plank Workman Name Role Phone Jony Conde MD Primary Care Provider [phone] REGISTRAR Unavailable [phone] REGISTRAR Primary Care Provider + Nuria Fall CONTROL SYSTEMS DESIGNER Unavailable Unavaila ble Encounter Details Date Type Department Care Team (Late st Contact Info) Description 07/02/2022 Orders Only External Location [address] [place] [address] Provider, External Social History Tobacco Use Types [...] PM EDT [facility] [place] [address] [facility], [address] [place] [address] Vincent Braga MD [address] [facility] [address] [place] [address] documented as of this encounter Procedures Procedure [...] on filedocumented in this encounter Care Teams Gang Plank Workman Relationship Specialty Start Date End Date Jony Conde MD [address] [place] [address] [address] [place] [address] PCP - General 07/18/22 12/03/22 Enedina Mcguire APRN [address] [place] [address] PCP - General 12/04/22 Lj Tapia APRN [facility] [place] [address] Referring Physician Gastroenterology 07/18/22 Nuria Fall LPN [facility] TCM Nurse 07/24/24 08/23/24 documented as of this encounter
--- OUTSIDE RECORDS SUMMARY | 2024-12-04 07:52 | XMS_ITS | Encounter Summary ---
Author Organization [facility] Address [address] [place] [address] Care Team Providers Care Police Dispatcher Name Role Phone Enedina Mcguire APRN Primary Care Provider + Reason for Visit * Reason Comments Med Refill Encounter Details Date Type Department Care Team (Late st Contact Info) Description 09/12/2022 Refill [facility] GASTROENTEROLOGY [address] [facility] [address] [place] [address] Lj Tapia APRN [address] [place] [address] Social History Tobacco Use Types Packs/Day Years [...] 07/12 Potentially Unsafe Housing Conditions Not on debi e 07/29/2022 Disabilities Answer Date Recorded Difficulty Concentrating, Remembering or Making Decisions no 07/29/2022 Difficulty Managing Errands Independently no 07/29/2022 Education Answer Date Recorded Help with school or training? Not on file Preferred Language Italian 07/03/2022 Sex and Gender Information Value Date Recorded Sex Assigned at Male 08/20/2024 8:28 PM EDT Legal Sex Male 7:45 AM EDT Gender Identity Not on file Sexual Orientation Not on file documented as of this encounter Plan of Treatment Upcoming Encounters Date Type Department Care Team (Late st Contact Info) Description 12/04/2024 2:15 PM EDT Office Visit [facility]EMENT [address] [address] Vazquez Christie PA-C [address] [place] [address] documented as of this encounter Visit Diagnoses Not on filedocumented in this encounter Care Teams Police Dispatcher Relationship Specialty Start Date End Date Enedina Mcguire APRN [address] [place] [address] PCP - General Nurse Practitioner 10/27/24 documented as of this encounter
--- OUTSIDE RECORDS SUMMARY | 2024-12-04 07:52 | XMS_ITS | Encounter Summary ---
Author Organization [facility] Address [address] [place] [address] Care Team Providers Care Dial Refinisher Name Role Phone Enedina Mcguire NP Primary Care Provider + [phone] Maureen Pantoja RN Unavailable Unavail able Source [...] release of HIV test results or diagnoses. [id number] Health Encounter Details Date Type Department Care Team (Late st Contact Info) Description 11/04/2024 [facility] at [address] [address] Maureen Pantoja, ЮЛИЯ Tacrolimus level, Hepatic Function [...] Recorded In the past 12 months has [employer], gas, oil, or water [employer] threatened to shut off services in your [...] documented as of this encounter Care Teams Dial Refinisher Relationship Specialty Start Date End Date Enedina Mcguire NP [address] [place] [address] PCP - General Internal Medicine 10/05/24 Maureen Pantoja, RN Txp Post Coordinator Transplant Hepatology 10/28/24 documented as of this encounter
--- OUTSIDE RECORDS SUMMARY | 2024-12-04 07:52 | XMS_ITS | Encounter Summary ---
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 [facility] Utilities Answer Date Recorded In the past 12 months has [employer], gas, oil, or water [employer] threatened to shut off services in your [...] Brief Depression Severity Measure Score 0 10/02/2022 [facility] Holder of Occupat ional Health - Occupational Stress [...] GED or equivalent No 07/09/2024 Preferred Language Dutch 07/09/2024 PHQ-2 Answer Date Recorded Patient Health [...] Description 12/04/2024 2:15 PM EDT Office Visit [facility] PAIN [facility]NAGEMENT [address] [facility] [address] [place] [address] Vazquez Christie PA-C [address] [place] [address] [address] [place] [id number] documented as of this encounter Visit Diagnoses Not on filedocumented in this encounter Additional Health Concerns Assessment Noted Time PHQ-2 Depression Total Score: 1 12/31/19 24 3:25 PM EDT documented as of this encounter Care Teams Polymer Materials Consultant Relationship Specialty Start Date End Date Soco Patel APRN [address] [facility] [address] [facility] [address] [place] [address] PCP - General Family Medicine 10/22/24 10/26/24 documented as of this encounter
--- OUTSIDE RECORDS SUMMARY | 2024-12-04 07:52 | XMS_ITS | Encounter Summary ---
[facility] Address [address] [place] [address] Care Team Providers Care Try Out Person Name Role Phone Enedina Mcguire APRN Primary Care Provider + Reason for Visit * Reason Onset Date Comments CALLBACK 10/27/2024 Encounter Details Date Type Department Care Team ([facility] st Contact Info) Description 10/27/2024 Telephone [facility] INTERNAL MEDICINE [address] [place] [address] Enedina Mcguire APRN [address] [place] [address] CALLBACK Social History Tobacco Use [...] Recorded In the past 12 months has [employer], [employer], oil, or water [employer] threatened to shut off services in your [...] Brief Depression Severity Measure Score 0 10/02/2022 [facility] - Occupational Stress Questionnaire Answer [...] GED or equivalent No 07/09/2024 Preferred Language Albanian 07/09/2024 PHQ-2 Answer Date Recorded Patient Health [...] Relationship: Emergency Contact Best call back number: [phone] What was the call regarding: WOULD LIKE A CALL BACK FROM FRANCESCA MCGUIRE HERSELF. SHE WOULD LIKE TO DISCUSS HER 'S TRANSPLANT LIST STATUS. THEY HAVE SOME GOOD NEWS TO REPORT. documented in this encounter Plan of Treatment Upcoming Encounters Date Type Department Care Team (Late st Contact Info) Description 12/04/2024 2:15 PM EDT Office Visit [facility] [address] [facility] [address] [place] [address] Vazquez Christie PA-C [address] [place] [phone] documented as of this encounter Visit Diagnoses Not on filedocumented in this encounter Additional Health Concerns Assessment Noted Time PHQ-2 Depression Total Score: 1 12/31/19 24 3:25 PM EDT documented as of this encounter Care Teams Try Out Person Relationship Specialty Start Date End Date Enedina Mcguire APRN [address] [place] [address] PCP - General Nurse Practitioner 10/27/24 documented as of this encounter
--- OUTSIDE RECORDS SUMMARY | 2024-12-04 07:52 | XMS_ITS | Encounter Summary ---
Author Organization [facility] Address [address] [place] [address] Care Team Providers Care Public Relations Counselor Name Role Phone Soco Patel APRN Primary Care Provid er Reason for Visit * Reason Onset Date Comments New Med Request 10/21/2024 Encounter Details Date Type Department Care Team ([facility] st Contact Info) Description 10/21/2024 Telephone [facility] INTERNAL MEDICINE [address] [place] [address] Enedina Mcguire APRN [address] [place] [address] New Med Request Social History Tobacco Use Types Packs/Day Years Used Date Smoking Tobacco: Former Cigarettes 4 20 Passive Smoke Exposure: Past Smokeless Tobacco: Current Comments:MARIJUANA USE ABOUT 2X PER WEEK - reports no use 08-05-2024 Alcohol Use Standard Drinks/Week Comments Not Currently 0 (1 standard drink = 0.6 oz pure alcohol) 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 [facility] Utilities Answer Date Recorded In the past 12 months has [employer], gas, oil, or water [employer] threatened to shut off services in your [...] Brief Depression Severity Measure Score 0 10/02/2022 [facility] - Occupational Stress Questionnaire [...] Anderson Relationship: Self Best call back number: [phone] What medication are you requesting: TORSEMIDE What [...] is your preferred pharmacy and phone number: [facility] [address] [place], [place] - [address] [phone] [facility] [phone] FX Additional notes: PATIENT STATES HE HAS [...] 12/04/2024 2:15 PM EDT Office Visit [facility] PAIN MANAGEMENT [address] [facility] [place] [address] Vazquez Christie PA-C [address] [facility] [address] [place] [address] documented as of this encounter Visit Diagnoses Not on filedocumented in this encounter Additional Health Concerns Assessment Noted Time PHQ-2 Depression Total Score: 1 12/31/19 24 3:25 PM EDT documented as of this encounter Care Teams Public Relations Counselor Relationship Specialty Start Date End Date Soco Patel APRN [address] [facility] [address] [place] [address] PCP - General Family Medicine 10/22/24 10/26/24 documented as of this encounter
--- OUTSIDE RECORDS SUMMARY | 2024-12-04 07:52 | XMS_ITS | Encounter Summary ---
Author Organization [facility] Address [address] [place] [address] Care Team Providers Care Clay Worker Name Role Phone Enedina Mcguire NP Primary Care Provider + [phone] Maureen Pantoja RN Unavailable Unavail able Source [...] release of HIV test results or diagnoses. [id number] Reason for Visit * Reason Comments Results Encounter Details Date Type Department Care Team (Late st Contact Info) Description 11/04/2024 Telephone [facility] Liver Transplant at [address] [address] Maureen Pantoja, RN Results Social [...] In the past 12 months has e [employer], gas, oil, or water [employer] threatened to shut off services in [...] documented as of this encounter Care Teams Clay Worker Relationship Specialty Start Date End Date Enedina Mcguire NP [address] [place] [address] PCP - General Internal Medicine 10/05/24 Maureen Pantoja, ЮЛИЯ Txp Post Coordinator Transplant Hepatology 10/28/24 documented as of this encounter
--- OUTSIDE RECORDS SUMMARY | 2024-12-04 07:52 | XMS_ITS | Encounter Summary ---
Author Organization [facility] Address [address] [place] [address] Care Team Providers Care Polysilicon Preparation Worker Name Role Phone [place], Lj Nova APRN Unavailable Enedina Mcguire APRN Primary Care Provider + Encounter Details Date Type Department Care Team ([facility] st Contact Info) Description 11/27/2024 Telephone [facility] Nephrology, Bone [facility] Mineral Metabolism [address], [address] [place] [address] Chelsy Villanueva Social History Tobacco [...] often do you attend chur ch or oriental orthodox services? Patient unable to answer 07/14/2024 Do you belong to any clubs o r organizations such as restorationism groups, unions, fraternal or athletic groups, or [...] 2 09/29/2024 [facility] - Occupational Stress Questionnaire Answer [...] drink first t deborah in the morning (EYE-CONVEYOR TECHNICIAN) to steady your nerves or to get [...] now s/p transplant can follow with transplant manufacturing industrial engineer, please cancel appt. documented in this encounter Plan of Treatment Upcoming Encounters Date Type Department Care Team (Late st Contact Info) Description 01/08/2025 3:20 PM EDT Office [facility] [place] [address] [place] [phone] Vincent Braga MD [address] [place] [address] documented as of this encounter Visit Diagnoses [...] documented as of this encounter Care Teams Polysilicon Preparation Worker Relationship Specialty Start Date End Date Enedina Mcguire APRN [address] [place] [address] PCP - General 12/04/22 Lj Tapia APRN [address] [place] [address] Referring Physician Gastroenterology 07/18/22 documented as of this encounter
--- OUTSIDE RECORDS SUMMARY | 2024-12-04 07:52 | XMS_ITS | Encounter Summary ---
Author Organization [facility] Address [address] [place] [address] Care Team Providers Care Managing Consultant Clinical Professor Name Role Phone Enedina Mcguire NP Primary Care Provider + [phone] Maureen Pantoja RN Unavailable Unavail able Source [...] release of HIV test results or diagnoses. [id number] Health Encounter Details Date Type Department Care Team (Late st Contact Info) Description 11/04/2024 Social Work [facility] Liver Transplant at [address] [place] [phone] Kaylin Willard MSW Social History Tobacco Use [...] Recorded In the past 12 months has [employer], gas, oil, or water [employer] threatened to shut off services in your [...] Patient reports he completed CD treatment with [facility] and was referred to [facility] for aftercare and will be attending 1 week virtual individual counseling sessions.He reports he was due to start this while hospitalized for the transplant and plans to reschedule his next session. Hope Stone given. SW discussed process for writing to Donor family and confirmed Pt/family have [facility] brochure. No further SW needs identified. 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
--- OUTSIDE RECORDS SUMMARY | 2024-12-04 07:54 | XMS_ITS | Encounter Summary ---
Author Organization [facility] Address [address] [place] [address] Care Team Providers Care Box Blank Machine Feeder Name Role Phone Enedina Mcguire NP Primary Care Provider + [phone] Maureen Pantoja RN Unavailable Unavail able Source [...] release of HIV test results or diagnoses. [id number] Health Encounter Details Date Type Department Care Team (Late st Contact Info) Description 10/29/2024 Education Chart Note [facility] Liver Transplant at [address] [place] [phone] Crista Power, RN Social History Tobacco [...] Recorded In the past 12 months has [employer], gas, oil, or water [employer] threatened to shut off services in your [...] of Infection/Rejection [x] 5. When to call rn mds coordinator [x] 6. Outpatient follow up including [...] times 0900/2100. Julien Anderson has to use [facility]. Meds are getting delivered 10/31/24. documented in this encounter Plan of Treatment Not on file documented as of this encounter Visit Diagnoses Not on filedocumented in this encounter Additional Health Concerns Assessment Noted Time PHQ-9 Depression Total Score: 17 025 11:00 AM EDT documented as of this encounter Care Teams Box Blank Machine Feeder Relationship Specialty Start Date End Date Enedina Mcguire NP [address] [place] [address] PCP - General Internal Medicine 10/05/24 Maureen Pantoja, ЮЛИЯ Txp Post Coordinator Transplant Hepatology 10/28/24 documented as of this encounter
--- OUTSIDE RECORDS SUMMARY | 2024-12-04 07:55 | XMS_ITS | Encounter Summary ---
Author Organization [facility] Address [address] [place] [address] Care Team Providers Care Aircraft Armorer Name Role Phone Enedina Mcguire NP Primary Care Provider + [phone] Maureen Pantoja RN Unavailable Unavail able Source [...] release of HIV test results or diagnoses. [id number] Health Encounter Details Date Type Department Care Team (Late st Contact Info) Description 11/03/2024 Chart Note [facility] Liver Transplant at [address] [place] [phone] Hillary Fernandes, [facility] Liver Transplant Pharmacy Discharge [...] In the past 12 months has e [employer], gas, oil, or water [employer] threatened to shut off services in your [...] day. blood-glucose meter (TRUE METRIX GLUCOSE METER) [facility] Use to test blood sugar up to [...] = 12 units lancets (ACCU-CHEK SOFTCLIX LANCETS) [facility] Use to test blood sugar up to [...] times a day. 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
--- OUTSIDE RECORDS SUMMARY | 2024-12-04 07:55 | XMS_ITS | Encounter Summary ---
Author Organization [facility] Address [address] [place] [address] Care Team Providers Care Tents Assembler Name Role Phone Enedina Mcguire NP Primary Care Provider + [phone] Maureen Pantoja RN Unavailable Unavail able Source [...] release of HIV test results or diagnoses. [id number] Health Encounter Details Date Type Department Care Team (Late st Contact Info) Description 11/03/2024 Telephone [facility] Liver Transplant at [address] [place] [phone] Marisela Martinez MA Social History Tobacco [...] Recorded In the past 12 months has [employer], gas, oil, or water [employer] threatened to shut off services in your [...] he will have his labs drawn at [facility] prior to clinic on [...] documented as of this encounter Care Teams Tents Assembler Relationship Specialty Start Date End Date Enedina Mcguire NP [address] [place] [address] PCP - General Internal Medicine 10/05/24 Maureen Pantoja, ЮЛИЯ Txp Post Coordinator Transplant Hepatology 10/28/24 documented as of this encounter
--- OUTSIDE RECORDS SUMMARY | 2024-12-04 07:55 | XMS_ITS | Encounter Summary ---
Author Organization [facility] Address [address] [place] [address] Care Team Providers Care Filtration Supervisor Name Role Phone Enedina Mcguire NP Primary Care Provider [phone] Source Comments This information has been disclosed [...] release of HIV test results or diagnoses. [id number] Health Encounter Details Date Type Department Care Team (Late st Contact Info) Description 10/17/2024 Pharmacy Services [facility] [address] [place] [phone] Qu, Ridge, RPh Social History Tobacco [...] Recorded In the past 12 months has [employer], gas, oil, or water company threatened to [...] this encounter Progress Notes * Ridge Menjivar, [facility] - 10/17/2024 9:47 AM EDT Julien Anderson [...] member, friend, or other person (including a maritime officer). The at-risk individual reports no known [...] documented as of this encounter Care Teams Filtration Supervisor Relationship Specialty Start Date End Date Enedina Mcguire NP [address] [place] [address] PCP - General Internal Medicine 10/05/24 documented as of this encounter
--- OUTSIDE RECORDS SUMMARY | 2024-12-04 07:55 | XMS_ITS | Encounter Summary ---
Author Organization [facility] Address [facility] [place] [address] Care Team Providers Care Senior Gamemaster Name Role Phone Enedina Mcguire NP Primary Care Provider + [phone] Maureen Pantoja RN Unavailable Unavail able Source [...] release of HIV test results or diagnoses. [id number] Health Encounter Details Date Type Department Care [...] Recorded In the past 12 months has [employer], oil, or water [employer] threatened to shut off services in your [...] as of this encounter Care Teams Senior Gamemaster Relationship Specialty Start Date End Date Enedina Mcguire NP [address] [place] [address] PCP - General Internal Medicine 10/05/24 Maureen Pantoja, ЮЛИЯ Txp Post Coordinator Transplant Hepatology 10/28/24 documented as of this encounter
--- OUTSIDE RECORDS SUMMARY | 2024-12-04 07:56 | XMS_ITS | Clinical Summary ---
Author Organization [facility] Address [facility] [place] [address] Care Team Providers Care Reactor Kettle Operator Name Role Phone Enedina Mcguire NP Primary Care Provider + [phone] Maureen Pantoja RN Unavailable Unavail able Source [...] therelease of HIV test results or diagnoses. [id number] Allergies Active Allergy Reactions Criticality [...] EDT 025 Active naloxone (NARCAN) 4 mg/actuation [place] Apply 1 spray in one nostril if [...] Active blood-glucose meter (TRUE METRIX GLUCOSE METER) [facility] Use to test blood sugar up to 4 times a day. 1 each 11/03/19 10:20 AM EDT Active blood sugar diagnostic (GLUCOSE BLOOD) Str[facility] Use to test blood sugar up to 4 times a day. 100 strip 11 11/03/19 10:20 AM EDT Active lancets (ACCU-CHEK SOFTCLIX LANCETS) [facility] Use to test [...] Encounter for therapeutic drug monitoring,S/P liver transplant ([facility]),Hypomagn esemia,Kidney transplant recipient,Hyperten kevin, unspecified type,Gastroesophag eal reflux disease, unspecified whether esophagitis present Take 3 tablets (975 mg total) by mouth every 8 hours. 200 tablet Active ergocalciferol (ERGOCALCIFEROL) 1,250 mcg (50,000 unit) capsuleIndications :Encounter for therapeutic drug monitoring,S/P liver transplant ([facility]),Hypomagn esemia,Kidney transplant recipient,Hyperten kevin, unspecified type,Gastroesophag eal reflux disease, unspecified whether esophagitis present Take 1 capsule (50,000 Units total) by mouth once a week. 4 capsule 2 025 Active famotidine (PEPCID) 20 MG tabletIndications: Encounter for therapeutic drug monitoring,S/P liver transplant ([facility]),Hypomagn esemia,Kidney transplant recipient,Hyperten kevin, unspecified type,Gastroesophag eal reflux disease, unspecified whether esophagitis present Take 1 tablet (20 mg total) by mouth 2 times a day. 60 tablet 2 025 Active NIFEdipine (PROCARDIA-XL) 30 MG (OSM) 24 hr tabletIndications: Encounter for therapeutic drug monitoring,S/P liver transplant ([facility]),Hypomagn esemia,Kidney transplant recipient,Hyperten kevin, unspecified type,Gastroesophag eal [...] Encounter for therapeutic drug monitoring,S/P liver transplant ([facility]),Hypomagn esemia,Kidney transplant recipient,Hyperten kevin, unspecified type,Gastroesophag eal reflux disease, unspecified whether esophagitis present Take 1 tablet by mouth daily. 30 tablet 2 025 Active valGANciclovir (VALCYTE) 450 mg tabletIndications: Encounter for therapeutic drug monitoring,S/P liver transplant ([facility]),Hypomagn esemia,Kidney transplant recipient,Hyperten kevin, unspecified type,Gastroesophag eal reflux disease, unspecified whether esophagitis present Take 1 tablet (450 mg total) by mouth daily. 30 tablet 2 025 Active mycophenolate (CELLCEPT) 250 mg capsuleIndications :Encounter for therapeutic drug monitoring,S/P liver transplant ([facility]),Hypomagn esemia,Kidney transplant recipient,Hyperten kevin, unspecified type,Gastroesophag eal reflux disease, unspecified whether esophagitis present Take 2 capsules (500 mg total) by mouth 2 times a day. 120 capsule 5 025 Active gabapentin (NEURONTIN) 100 MG capsuleIndications :Encounter for therapeutic drug monitoring,S/P liver transplant ([facility]),Hypomagn esemia,Kidney transplant recipient,Hyperten kevin, unspecified type,Gastroesophag eal reflux disease, unspecified whether esophagitis present Take 1 capsule (100 mg total) by mouth 3 times a day. 90 capsule 025 Active predniSONE (DELTASONE) 5 MG tablet Take 2 tablets (10 mg total) by mouth daily. 025 Active tacrolimus (PROGRAF) 1 MG capsuleIndications :Prevention of Kidney Transplant Rejection,Preventi on of Liver Transplant Rejection Take 5 capsules (5 mg total) by mouth every morning AND 6 capsules (6 mg total) at bedtime. Use as directed. Indications: Prevention of Kidney Transplant Rejection, Prevention of Liver Transplant Rejection. 330 capsule 5 025 Active FLUoxetine (PROZAC) 20 MG capsule Take 1 capsule (20 mg total) by mouth daily. 30 capsule 2 10/18/19 25 10:24 AM EDT 025 11/20 Discontinued( Refill / Reorder) ergocalciferol (ERGOCALCIFEROL) [...] capsule 5 11/25 Discontinued( Refill / Reorder) gabapentin (NEURONTIN) 100 MG capsule Take 1 capsule (100 mg total) by mouth 3 times a day. 90 capsule 11/03/19 25 10:20 AM EDT 11/25 Discontinued( Refill / Reorder) NIFEdipine (PROCARDIA-XL) 30 MG (OSM) 24 hr tablet Take 1 tablet (30 mg total) by mouth daily. 30 tablet 11/03/19 25 10:20 AM EDT 11/25 Discontinued( Refill / Reorder) torsemide (DEMADEX) 20 MG tablet Take 1 tablet (20 mg total) by mouth daily. 30 tablet 025 11/11 Discontinued apixaban (ELIQUIS) 2.5 mg Tab [...] mg total) by mouth daily. 30 tablet 11/25 Discontinued predniSONE (DELTASONE) 5 MG tablet Take 3 tablets (15 mg total) by mouth daily. 120 tablet 2 11/26 Discontinued( Refill / Reorder) HYDROmorphone (DILAUDID) [...] :Encounter for therapeutic drug monitoring,S/P liver transplant ([facility]),Hypomagn esemia,Kidney transplant recipient,Hyperten kevin, unspecified type,Gastroesophag eal reflux disease, unspecified whether esophagitis present Take 1 capsule (100 mg total) by mouth 3 times a day. 90 capsule 025 11/25 Discontinued( Refill / Reorder) tacrolimus (PROGRAF) 1 MG capsuleIndications :Encounter for therapeutic drug monitoring,S/P liver transplant ([facility]),Hypomagn esemia,Kidney transplant recipient,Hyperten kevin, unspecified type,Gastroesophag eal reflux disease, unspecified whether esophagitis present Take 6 capsules (6 mg total) by mouth 2 times a day. Use as directed 600 capsule 5 025 11/25 Discontinued tacrolimus (PROGRAF) 1 MG capsuleIndications :Prevention of Kidney Transplant Rejection,Preventi on of Liver Transplant Rejection Take 5 capsules (5 mg total) by mouth every morning AND 6 capsules (6 mg total) at bedtime. Use as directed. Indications: Prevention of Kidney Transplant Rejection, Prevention of Liver Transplant Rejection. 330 capsule 5 025 12/02 Discontinued( Refill / Reorder) HYDROmorphone (DILAUDID) 2 MG tabletIndications: Abdominal pain, unspecified abdominal location Take 1 tablet (2 mg total) by mouth every 6 hours as needed for up to 7 days. 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 with Cipro 500mg daily - HE: [...] Encounters Date Type Department Care Team Description 12/03/2024 Chart Note [facility] Liver Transplant at [address] [address] Marlene Ro MA FK, Urine culture pending 12/02/2024 Telephone [facility] Liver Transplant at [address] [address] Mitzy Rojas MA 12/01/2024 Telephone [facility] Liver Transplant at [address] [address] Gladis Chisholm MA 11/27/2024 Telephone [facility] Liver Transplant at [address] [address] Maureen Pantoja, RN Results 11/27/2024 Chart Note [facility] Liver Transplant at [address] [address] Marlene Ro MA FK Pending 11/27 Labs 11/26/2024 Telephone [facility] Liver Transplant at [address] [place] [address] Maureen Pantoja, RN Results 11/25/2024 10:50 AM EDT Office Visit [facility] Liver Transplant at [address] [place] [address] Leisa Juarez MD Kaur, Taranpreet NADIYA (acute kidney injury) ([facility]) (Primary Dx); Kidney replaced by transplant; Metabolic acidosis; Hypervolemia associated with renal insufficiency 11/25/2024 10:20 AM EDT Office Visit [facility] Liver Transplant at [address] [place] [address] Lydia Sanchez MD Encounter for therapeutic drug monitoring (Primary Dx); S/P liver transplant ([facility]); Hypomagnesemia; Kidney transplant recipient; Hypertension, unspecified type; Gastroesophageal reflux disease, unspecified whether esophagitis present; Abdominal pain, unspecified abdominal location 11/25/2024 9:00 AM EDT Procedure visit [facility] Urology at [facility] [address] [facility] [address] [place] [phone] Julieta Rogers PA Retained ureteral stent of transplanted kidney ([facility]) (Primary Dx) 11/25/2024 Social Work [facility] Liver Transplant at [address] [place] [address] Kaylin Willard MSW 11/24/2024 Orders Only [facility] Liver Transplant at [address] [place] [address] Maureen Pantoja, RN 11/21/2024 Orders Only [facility] Urology at [facility] [address] [facility] [address] [place] [address] Vasile Gordillo MA 11/21/2024 Telephone [facility] Liver Transplant at [address] [place] [address] Maureen Pantoja, RN Results 11/21/2024 Chart Note [facility] Liver Transplant at [address] [address] Marlene Ro MA FK: 11/18 & 11/20 Pending 11/20/2024 Refill [facility] Liver Transplant at [address] [place] [phone] Maureen Pantoja, ЮЛИЯ 11/20/2024 Refill [facility] Liver Transplant at [address] [address] Maureen Pantoja, ЮЛИЯ 11/20/2024 Orders Only [facility] Liver Transplant at [place] [address] [place] [address] Maureen Pantoja, RN S/P liver transplant ([facility]) (Primary Dx); Immunosuppression ([facility]); Viral disease exposure; Alcohol use 11/18/2024 Telephone [facility] Liver Transplant at [address] [place] [address] Maureen Pantoja, RN Results 11/18/2024 Chart Note [facility] Liver Transplant at [address] [place] [address] Marlene Ro MA 11/11/2024 10:30 AM EDT Office Visit [facility] Liver Transplant at [address] [place] [address] Unknown, Attending Provider Jessica Colon Kidney replaced by transplant (Primary Dx); Hypervolemia associated with renal insufficiency 11/11/2024 10:00 AM EDT Office Visit [facility] Liver Transplant at [address] [address] Cosmo Pacheco MD Quillin, Ralph Cutler III, MD Encounter for therapeutic drug monitoring (Primary Dx); Abdominal pain, unspecified abdominal location 11/11/2024 9:30 AM EDT Office Visit [facility] Psychiatry Transplant at [address] [address] Lizeth Warren PsyD PTSD (post-traumatic stress disorder) (Primary Dx) 11/11/2024 8:50 AM EDT [facility] [address] [place] [address] Harvey Domínguez III, MD Liver replaced by transplant ([facility]); Immunosuppressive management encounter following liver transplant ([facility]); Kidney transplant recipient 11/11/2024 Telephone [facility] Liver Transplant at [address] [address] Maureen Pantoja, ЮЛИЯ Results 11/10/2024 Orders Only [facility] Liver Transplant at [address] [address] Maureen Pantoja, ЮЛИЯ Liver transplant recipient ([facility]) (Primary Dx); Kidney transplant recipient; Immunosuppressive management encounter following liver transplant ([facility]) 11/10/2024 Orders Only [facility] Liver Transplant at [address] [address] Maureen Pantoja, ЮЛИЯ 11/09/2024 Telephone [facility] [address] [place] [address] Unknown, Attending Provider After Hours Call (Passing blood through stool states started this morning has had 3 bloody bowel movements kidney and liver txp done 2 weeks ago) 11/07/2024 Telephone [facility] Liver Transplant at [address] [place] [address] Marlene Ro MA 11/07/2024 Telephone [facility] Liver Transplant at [address] [place] [address] Maureen Pantoja, RN Results 11/07/2024 Chart Note [facility] Liver Transplant at [address] [place] [address] Marlene Ro MA FK Pending 11/04/2024 10:10 AM EDT Office Visit [facility] Liver Transplant at [address] [place] [address] Leisa Juarez MD Kidney transplant recipient (Primary Dx); Diarrhea of presumed infectious origin; Hypomagnesemia; Hypervolemia, unspecified hypervolemia type; Liver transplant recipient (CMS-HCC); Other hypervolemia; Hyperparathyroidism (CMS-HCC); Nausea and vomiting, unspecified vomiting type 11/04/2024 8:40 AM EDT Office Visit [facility] Liver Transplant at [address] [place] [address] Cosmo Pacheco MD Liver transplant recipient (CMS-HCC) (Primary Dx); Alcoholic cirrhosis of liver with ascites (CMS-HCC); Kidney transplant recipient; Acute kidney injury superimposed on CKD (CMS-HCC); CKD (chronic kidney disease) stage 4, GFR 15-29 ml/min (CMS-HCC); Immunosuppressive management encounter following liver transplant (CMS-HCC); Abdominal pain, unspecified abdominal location 11/04/2024 Telephone [facility] Liver Transplant at [address] [place] [address] Maureen Pantoja, RN Results 11/04/2024 Results Follow-Up [facility] Liver Transplant at [address] [place] [phone] Maureen Pantoja, ЮЛИЯ Tacrolimus level, Hepatic Function Panel, Renal Function Panel w/EGFR, Additional followed-up results: 3 11/04/2024 Social Work [facility] Liver Transplant at [address] [place] [phone] Kaylin Willard MSW 11/04/2024 Nutrition [facility] Kidney Transplant at [address] [place] [phone] 11/03/2024 Chart Note [facility] Liver Transplant at [address] [place] [phone] Hillary Fernandes, PharmD Liver Transplant Pharmacy Discharge Note 11/03/2024 Telephone [facility] Liver Transplant at [address] [place] [address] Marisela Martinez MA 10/31/2024 Orders Only [facility] Liver Transplant at [address] [place] [phone] Harvey Domínguez III, MD Liver replaced by transplant ([facility]) (Primary Dx); Immunosuppressive management encounter following liver transplant ([facility]) 10/29/2024 Travel 10/29/2024 Education Chart Note [facility] Liver Transplant at [address] [place] [address] Crista Power RN 10/27/2024 2:34 AM EDT Anesthesia Event [facility] [address] [place] [address] Rocky Manning MD Kopel, Lior, MD 10/27/2024 2:00 AM EDT - 10/27/2024 6:54 AM EDT Surgery [facility] [place] [phone] Harvey Domínguez III, MD Donor Kidney Transplant , Back Bench Preparation Donor Kidney, Baseline Kidney transplant biopsy , Insertion of Indwelling Stent , Removal of Perihepatic packing 10/27/2024 Pharmacy Services [facility] [address] [place] [phone] Opal Cox, Lissett 10/27/2024 Chart Note [facility] Kidney Transplant at [address] [address] Karen Rosen, ЮЛИЯ I have verified that the donor serologies entered in Epic match the donor 10/27/2024 Chart Note [facility] Liver Transplant at [address] [address] Crista Power, RN I introduced myself as inpatient liver/kidney palliative care coordinator, 10/27/2024 Orders Only [facility] Pan[facility] at [facility] [address] [place] [address] [place] [address] Abdulkadir Gaspar MD 10/26/2024 Chart Note [facility] Kidney Transplant at [place] [address] [place] [address] Geri Vasquez RN 10/26/2024 Chart Note [facility] Liver Transplant at [address] [address] Geri Vasquez RN 10/25/2024 10:54 PM EDT Anesthesia Event [facility] [place] [address] Eber Quinones MD Edwards, Anna, MD 10/25/2024 10:30 PM EDT - 10/26/2024 6:12 AM EDT Surgery [facility] [address] [facility] [place] [address] Harvey Domínugez III, MD LIVER TRANSPLANT 10/25/2024 8:46 PM EDT - 11/02/2024 6:23 PM EDT Hospital Encounter [facility]P [address] [place] [phone] Harvey Domínguez III, MD Haugen, Christine, MD Acute kidney injury superimposed on CKD ([facility]) (Primary Dx); Prophylactic antibiotic; Prolonged QT interval; Immunosuppression ([facility]); Abdominal pain, unspecified abdominal location Discharge Disposition: Home or Self Care WITHOUT Home Care Services 10/25/2024 Travel 10/25/2024 Telephone [facility] Liver Transplant at [address] [place] [address] Krissy Crowell, ЮЛИЯ DDLT patient instructions 10/25/2024 Telephone [facility] Liver Transplant at [address] [place] [address] Krissy Crowell, ЮЛИЯ 10/24/2024 Telephone [facility] Renal Hypertension Clinic at [address] [place] [phone] Joann Davies, RAFFI Appointment 10/22/2024 Telephone [facility] Liver Transplant at [address] [place] [phone] Mary Butler, ЮЛИЯ 10/22/2024 Chart Note [facility] Kidney Transplant at [address] [place] [address] Gladis Rainey, RN Received most recent eGFR from today with result of 21. Pt meets CKD 10/22/2024 Chart Note [facility] Liver Transplant at [address] [place] [phone] Faraz Carballo, ЮЛИЯ 2nd ABO verified for [facility] listing at the request of JOSE G Butler. 10/22/2024 Telephone [facility] Psychiatry Transplant at [address] [place] [phone] Lizeth Warren PsyD 10/22/2024 Chart Note [facility] [address] [place], [place] [phone] Aaron Gonzalez MD Candidacy for a simultaneous liver-kidney transplant 10/22/2024 Status Update [facility] Kidney Transplant at [address] [phone] Aaron Gonzalez MD 10/22/2024 Chart Note [facility] Liver Transplant at [place] [address] [place] [address] Mary Butler, RN UNOS VERIFICATION CHECK FORM 10/22/2024 Orders Only [facility] at [facility] [address] [place] [phone] Abdulkadir Gaspar MD 10/22/2024 Chart Note [facility] Liver Transplant at [address] [place] [phone] Mary Butler RN 10/21/2024 Telephone [facility] Gastroenterology at [facility] [address] [facility] [address] [place] [address] Gerri Peterson MD Medication Management (Requesting RX for New Medication ) 10/21/2024 Refill [facility] Gastroenterology at [facility] [address] [facility] [address] [place] [address] Gerri Peterson MD 10/20/2024 9:10 AM EDT - 10/20/2024 11:59 PM EDT Hospital Encounter [facility] Radiology [address] [place] [address] System, Provider Not In Discharge Disposition: Home or Self Care WITHOUT Home Care Services 10/20/2024 9:10 AM EDT - 10/20/2024 11:59 PM EDT Hospital Encounter [facility] Radiology [address] [place] [address] System, Provider Not In Discharge Disposition: Home or Self Care WITHOUT Home Care Services 10/20/2024 9:10 AM EDT - 10/20/2024 11:59 PM EDT Hospital Encounter [facility] [address] [place] [address] System, Provider Not In Discharge Disposition: Home or Self Care WITHOUT Home Care Services 10/20/2024 9:10 AM EDT - 10/20/2024 11:59 PM EDT Hospital Encounter [facility] Radiology [address] [place] [address] System, Provider Not In Discharge Disposition: Home or Self Care WITHOUT Home Care Services 10/20/2024 9:10 AM EDT - 10/20/2024 11:59 PM EDT Hospital Encounter [facility] Radiology [address] [place] [address] System, Provider Not In Discharge Disposition: Home or Self Care WITHOUT Home Care Services 10/20/2024 9:10 AM EDT - 10/20/2024 11:59 PM EDT Hospital Encounter [facility] Radiology [address] [place] [address] System, Provider Not In Discharge Disposition: Home or Self Care WITHOUT Home Care Services 10/20/2024 9:10 AM EDT - 10/20/2024 11:59 PM EDT Hospital Encounter [facility] Radiology [address] [place] [address] System, Provider Not In Discharge Disposition: Home or Self Care WITHOUT Home Care Services 10/20/2024 Orders Only [facility] [address] [place] [phone] Abdulkadir Gaspar MD 10/20/2024 Telephone [facility] Gastroenterology at [facility] [address] [facility] [address] [place] [phone] Gerri Peterson MD Prescription Issue (RX Clarification Request ) 10/20/2024 Refill [facility] Gastroenterology at [facility] [address] [facility] [address] [place] [phone] Gerri Peterson MD 10/20/2024 Telephone [facility] Liver Transplant at [address] [phone] Mary Butler RN 10/17/2024 Chart Note [facility] Kidney Transplant at [address] [address] Anny Cote RN Copy of HLA report scanned into the media tab. 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 [address] [place] [address] Irving Matta MD Left Heart Cath 10/14/2024 Chart Note [facility] Kidney Transplant at [address] [phone] Dean Robles [facility] [address] 10/10/2024 12:01 PM EDT Anesthesia Event [facility] ENDOSCOPY [address] [place] [address] Cady Bhat MD Nguyen, Quinn, MD 10/10/2024 10:36 AM EDT - 10/10/2024 11:06 AM EDT Surgery [facility] ENDOSCOPY [address] [place] [address] Lino Soto MD EGD 10/09/2024 Social Work [facility] Liver Transplant at [address] [address] Kaylin Willard MSW 10/09/2024 [facility] [facility] at [address] [address] Dean [facility] [id number] call from Elle [facility] fx [phone] 10/09/2024 Chart Note [facility] at [address] [address] Dean [facility] [id number] 10/07/2024 Chart Note [facility] Liver Transplant at [address] [address] Mary Butler, RN Spoke with Blair Anderson today for evaluation for a combined liver and 10/07/2024 Chart Note [facility] at [address] [address] Anny Cote RN Received notice of in house evaluation. Message to nephrology 10/07/2024 Chart Note [facility] at [address] [place] [phone] Chey Nicole MA This MA received new referral for PT. Raul NICHOLAS once financially cleared. 10/07/2024 Chart Note [facility] at [address] [place] [phone] Anny Cote RN Simultaneous Liver-Kidney Transplant Referral 10/06/2024 Travel 10/05/2024 11:12 PM EDT - 10/17/2024 10:29 AM EDT Hospital Encounter [facility] [address] [place] [address] Gómez Blanchard MD Wood, MD Eber Fonseca [...] Care WITHOUT Home Care Services 10/05/2024 Telephone [facility] [address] [place] [address] Unknown, Attending Provider After Hours Call 10/01/2024 Telephone [facility] at [address] [place] [address] Armand Salinas, RN 09/30/2024 Social Work [facility] at [address] [place] [address] Kaylin Willard MSW 09/29/2024 11:00 AM EDT Office Visit [facility] Psych[facility]ry [facility] at [address] [place] [phone] Lizeth Warren PsyD PTSD (post-traumatic stress disorder) (Primary Dx); Alcohol use disorder 09/26/2024 Abstract [facility] at [facility] [address] [facility] [address] [place] [phone] Gerri Peterson MD 09/25/2024 11:25 AM EDT [facility] [address] [place] [phone] Gerri Peterson MD Cirrhosis of liver with ascites, unspecified hepatic cirrhosis type (CMS-HCC); Pre-transplant evaluation for chronic liver disease; Alcoholic cirrhosis of liver without ascites (CMS-HCC) 09/25/2024 Social Work [facility] at [address] [place] [address] Kaylin Willard MSW 09/25/2024 Telephone [facility] Interventional Radiology [address] [place] [address] Thad De Leon Appointment 09/25/2024 Orders Only [facility] Liver Transplant at [address] [place] [phone] Mary Butler, RN Pre-transplant evaluation for chronic liver disease (Primary Dx); Alcoholic cirrhosis of liver without ascites (CMS-HCC) 09/24/2024 Orders Only [facility] at [facility] [address] [facility] [address] [place] [phone] Gerri Peterson MD Cirrhosis of liver with ascites, unspecified hepatic cirrhosis type (CMS-HCC) (Primary Dx) 09/24/2024 Orders Only [facility] at [facility] [address] [facility] [address] [place] [phone] Gerri Peterson MD Cirrhosis of liver with ascites, unspecified hepatic cirrhosis type (CMS-HCC) (Primary Dx) 09/23/2024 Telephone [facility] at [facility] [address] [facility] [address] [place] [address] Gerri Peterson MD Orders (Order Clarification Request/) 09/22/2024 Telephone [facility] at [facility] [address] [facility] [address] [place] [address] Gerri Peterson MD Orders (Order Clarification Request ) 09/17/2024 Telephone [facility] Transplant at [address] [place] [phone] Kaylin Willard, CAREER AND GUIDANCE COUNSELOR 09/17/2024 Abstract [facility] at [facility] [address] [facility] [address] [place] [phone] Gerri Peterson MD 09/17/2024 Telephone [facility] Transplant at [address] [place] [phone] Kaylin Willard, CAREER AND GUIDANCE COUNSELOR 09/16/2024 Telephone [facility] at [facility] [address] [facility] [address] [place] [address] Gerri Peterson MD Medical Management (Plan of Care Inquiry/Question ) 09/10/2024 Telephone [facility] Liver Transplant at [address] [place] [phone] Kaylin Willard, CAREER AND GUIDANCE COUNSELOR 09/05/2024 Orders Only [facility] at [facility] [address] [facility] [address] [place] [address] Chris Orosco MD Cirrhosis of liver with ascites, unspecified hepatic cirrhosis type (CMS-HCC) (Primary Dx) 09/05/2024 Travel 09/03/2024 4:56 AM EDT - 09/09/2024 6:25 PM EDT Hospital Encounter [facility] [address] [place] [address] Ana Maria Ramey MD Zackary, Joseph, MD Morgenlander, Adam M, MD Liebler, Hillary, MD Stickles, Allison Michele, MD Alcoholic cirrhosis of liver with ascites (CMS-HCC) (Primary Dx); Abdominal pain, unspecified abdominal location; NADIYA (acute kidney injury) (CMS-HCC) [N17.9] Discharge Disposition: Home or Self Care WITHOUT Home Care Services from Last 3 Months Social [...] as 4 glasses of wine a days [employer] Answer Date Recorded In the past 12 months has [employer], oil, or water [employer] threatened to shut off services in your [...] 11/25/2024, 09/29/2024, Additional history exists Renal Function/GFR 12/02/2025 12/02/2024, 0 11/27/2024, 11/25/2024, Additional history exists Immunization: DTaP/Tdap/Td ( 3 - Td or Tdap) 06/03/2028 06/03/2018, 09/13/2010 Hepatitis C Screening (MyChart) Completed 10/25/2024, 10/07/2024, 10/06/2024, Additional history exists HIV Screening Completed 11/25/2024, 10/12, 10/07/2024 Procedures Procedure Name Priority Date/Time Associated Diagnosis Comments RENAL FUNCTION PANEL W/O EGFR Routine 12/02/2024 8:01 AM EDT CREATININE, URINE, RANDOM Routine 2024 8:01 AM EDT URINALYSIS W/RFL TO MICROSCOPIC Routine 12/02/2024 8:01 AM EDT CBC AND DIFFERENTIAL Routine 12/02/2024 8:01 AM EDT URINE PROTEIN, TOTAL, RANDOM (W/O CREATININE) Routine 12/02/2024 8:01 AM EDT HEPATIC FUNCTION PANEL Routine 8:01 AM EDT TACROLIMUS LEVEL Routine 11/27/2024 7:50 AM EDT RENAL FUNCTION PANEL W/O EGFR Routine 11/27/2024 7:50 AM EDT PROTIME-INR Routine 11/27/2024 7:50 AM EDT CBC AND DIFFERENTIAL Routine 11/27/2024 7:50 AM EDT HEPATIC FUNCTION PANEL Routine 7:50 AM EDT PHOSPHATIDYLETHANOL CONFIRMATION, B Routine 11/25/2024 8:42 AM EDT S/P liver transplant ([facility]-HCC) Immunosuppression ([facility]-HCC) Alcohol use HIV-1 RNA, QUANTITATIVE, PCR Routine 11/25/2024 8:42 AM EDT S/P liver transplant (CMS-HCC) Immunosuppression ([facility]-HCC) Viral disease exposure HEPATITIS C RNA, QUANTITATIVE PCR Routine 11/25/2024 8:42 AM EDT S/P liver transplant (CMS-HCC) Immunosuppression ([facility]-HCC) Viral disease exposure HEPATITIS B VIRUS (HBV), REAL-TIME PCR, QUANT Routine 11/25/2024 8:42 AM EDT S/P liver transplant ([facility]-HCC) Immunosuppression ([facility]-HCC) Viral disease exposure MAGNESIUM Routine 11/25/2024 8:42 [...] Routine 10/31/2024 10:19 AM EDT US DUPLEX CIN-[id number]-[id number] COMPLETE Routine 10/31/2024 10:19 AM EDT ECG [...] STAT 10/28/2024 4:23 PM EDT US DUPLEX AOR-[id number] COMPLETE STAT 10/28/2024 4:23 PM EDT TRANSFUSE [...] STAT 10/27/2024 9:51 AM EDT US DUPLEX YKS-[id number]-[id number] COMPLETE STAT 10/27/2024 9:51 AM EDT US ABDOMEN LIMITED STAT 10/27/2024 9:51 AM EDT CRAISA RHYTHM STRIP - SCAN 10/28/19 9:25 AM [...] EDT Acute kidney injury superimposed on CKD ([facility]) VA RENAL ALTRNSPLJ IMPLTJ GRF W/STATISTICAL CLERK ADVERTISING NEPHRECTOMY 10/27/2024 2:32 AM EDT Acute kidney injury superimposed on CKD ([facility]-HCC) 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 patel [...] LIPID PANEL Routine 10/07/2024 6:37 PM EDT [id number] (AAT) QUANTITATION & MUTATION Routine 10/07/2024 6:37 [...] Routine 10/07/2024 3:48 PM EDT US DUPLEX HVR-BCWOIA-SGMZJJK COMPLETE Routine 10/07/2024 3:48 PM EDT CARISA [...] 10/06/2024 4:01 AM EDT UPPER RESPIRATORY VIRAL/BACTERIAL PANEL-[employer] 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 Bilirubin, Direct 0.5 Bilirubin, Indirect 0.2 Alkaline Phosphatase 109 U/L ALT 16 U/L AST 15 U/L Total Bilirubin 0.7 0.1 - 1.4 mg/dL Total Protein 6.0(A) 6.4 - 8.2 g/dL Plasma Narrative Resulting Agency Comment [facility] Provider LAB BLOOD ORDERABLES Denisse l Result * Creatinine, urine, random (12/02/2024 8:01 AM EDT) Only the most recent of2 resultswithin the time period is included. Creatinine, Urine 48 Urine Narrative Resulting Agency Comment [facility] Provider URINE ORDERABLES Final Re sult * Urinalysis w/Rfl to Microscopic (12/02/2024 8:01 AM EDT) Only the most recent of6 resultswithin the time period is included. Glucose, UA Negative Negative Ketones, UA Negative Negative Blood, UA Negative Negative Bilirubin, UA Negative Negative Urobilinogen, UA Normal Normal Protein, UA Negative Negative Leukocyte Esterase, UA Negative Negative pH, UA 6.0 4.5 - 8.0 Specific [place], UA 1.010 1.005 - 1.030 Clarity, UA Clear Clear Color, UA Yellow Light Yellow, Yellow Urine Narrative Resulting Agency Comment [facility] Historical Provider URINE ORDERABLES Final Re sult * (ABNORMAL) CBC and differential (12/02/2024 8:01 AM EDT) Only the most recent of7 resultswithin the time period is included. Hemoglobin [...] 6.0 10^3/mL Blood Narrative Resulting Agency Comment [facility] Historical Provider LAB BLOOD ORDERABLES Denisse l Result * (ABNORMAL) Renal Function Panel w/o EGFR (12/02/2024 8:01 AM EDT) Only the most recent of9 resultswithin the time period is included. Glucose 97 mg/dL BUN 29(A) 4 - [...] Narrative Resulting Agency Comment [facility] Result [facility] Provider MD LAB BLOOD ORDERABLES Denisse l Result * Tacrolimus level (11/27/2024 7:50 AM EDT) Only the most recent of14 resultswithin the time period is included. Tacrolimus Lvl 9.9 6 - 15 ng/mL Whole Blood Result [facility] MD LAB BLOOD ORDERABLES Denisse l Result * Protime-INR (11/27/2024 7:50 AM EDT) Only the most recent of32 resultswithin the time period is included. INR 0.93 0.9 - 1.1 Plasma Narrative Resulting Agency Comment [facility] Result [facility] MD LAB BLOOD ORDERABLES Denisse l Result * Phosphatidylethanol Confirmation, B (11/25/2024 8:42 AM EDT) Only the most recent of4 resultswithin the time period is included. PETH 16:0/18.1 (POPETH) 14 Cutoff: 10 ng/mL 11/28/2024 8:24 AM EDT [facility]ALTH LAB Comment: Phosphatidylethanol (PEth) [...] per day several days a week) (Reference: W. Ulwelling and Declan Phillips 2018 J. Forensic Sci) PETH 16:0/18.2 (PLPETH) 12 Cutoff: 10 ng/mL 11/28/2024 8:24 AM EDT [facility] Comment: PEth 16:0/18:2 (PLPEth) Reference ranges are not well established PEth Interpretation Positive. 11/28 8:24 AM EDT [facility] Comment: ADDITIONAL INFORMATION This report is intended for use in clinical monitoring and management of patients. It is not intended for use in employment-related testing. This test was developed and its performance characteristics determined by [facility] in a manner consistent with CLIA requirements. This test has not been cleared or approved by the U.S. Food and Drug Administration. Test Performed by: [facility] [place] [address] Seafood Processor: Kathy Ortiz Ph.D.; CLIA# [id number] Whole Blood 11/25/2024 8:42 AM EDT 11/28/2024 8:24 AM EDT Narrative [facility] - 11/28/2024 8:24 AM EDT One time lab order to be collected with next set of standing liver transplant labs. Please fax all results to [phone]. Call critical results to [phone]. us Harvey Domínguez III, MD LAB BLOOD ORDERABLE S Final Result [facility] [address] [place] [address], [facility] * Hepatitis B Virus (HBV), PCR, Quant (11/25/2024 8:42 AM EDT) Hep B Viral DNA IU/ML Not Detected IU/mL 11/28/2024 10:09 AM EDT [facility] Comment:Test methodology for HBV DNA quantification is an FDA-approved nucleic acid amplification assay. The lower limit of quantitation (LLOQ) is 10 IU/mL. The linear range of the assay is 10-1,000,000,000 IU/mL. The limit of detection (LoD) for plasma is 2.7 IU/mL. The reference range is Not Detected. log 10 HBV as IU/mL See Note log 10 IU/mL 11/28/2024 10:09 AM EDT [facility] Comment:HBV DNA not detected . Plasma 11/25/2024 8:42 AM EDT 11/25/2024 10:59 AM EDT [facility] - 11/28/2024 10:09 AM EDT One time lab order to be collected with next set of standing liver transplant labs. UNOS requirement. Please fax all results to [phone]. Call critical results to [phone]. us Harvey Domínguez III, MD LAB BLOOD ORDERABLE S Final Result [facility] [address] * HIV-1 RNA, Quantitative, PCR (11/25/2024 8:42 AM EDT) HIV 1 Copies Not Detected copies/mL 11/26/2024 10:57 AM EDT [facility] Comment:Test methodology for HIV-1 RNA quantification is an FDA-approved nucleic acid amplification assay. The Lower Limit of Quantitation (LLoQ) is 20 copies/mL. The linear range is 20- to 10,000,000 copies/mL. The Limit of Detection (LoD) is 13.2 copies/mL. The reference range is Not Detected. HIV [id number] See Note [id number] /mL 11/26/2024 10:57 AM EDT [facility] Comment:HIV-1 RNA not detect ed. Plasma 11/25/2024 8:42 AM EDT 11/25/2024 10:59 AM EDT [facility] - 11/26/2024 10:57 AM EDT One time lab order to be collected with next set of standing liver transplant labs. UNOS requirement. Please fax all results to [phone]. Call critical results to [phone]. Harvey Domínguez III, MD LAB BLOOD ORDERABLE S Final Result Performing Organization Address [facility] Co de Phone Number [facility] [address] * Hepatitis C RNA, Quantitative PCR (11/25/2024 8:42 AM EDT) Pathologist [facility] Not Detected IU/mL 11/27/2024 11:35 AM EDT [facility] Comment:Test methodology for HCV RNA quantification is an FDA-approved nucleic acid amplification assay. The Lower Limit of Quantitation (LLOQ) is 15 IU/mL. The linear range of the assay is 15-100,000,000 IU/mL. The Limit of Detection (LoD) is 12.0 IU/mL for EDTA plasma. The reference range is Not Detected. IU log10 See Note log 10 IU/mL 11/27/2024 11:35 AM EDT [facility] Comment:HCV RNA not detected . Plasma 11/25/2024 8:42 AM EDT 11/25/2024 10:59 AM EDT Narrative [facility] - 11/27/2024 11:35 AM EDT One time lab order to be collected with next set of standing liver transplant labs. UNOS requirement. Please fax all results to [phone]. Call critical results to [phone]. Harvey Domínguez III, MD LAB BLOOD ORDERABLE S Final Result Performing Organization Address [facility] Co de Phone Number [facility] [address] * Differential (11/25/2024 8:42 AM EDT) Only the most recent of6 resultswithin the time period is included. Neutrophils Relative 73.2 40.0 - 80.0 % 11/25/2024 10:25 AM EDT [facility] Lymphocytes Relative 19.2 15.0 - 45.0 % 11/25/2024 10:25 AM EDT [facility] Monocytes Relative 6.3 0.0 - 12.0 % 11/25/2024 10:25 AM EDT [facility] Eosinophils Relative 0.4 0.0 - 8.0 % 11/25/2024 10:25 AM EDT [facility] Basophils Relative 0.9 0.0 - 1.0 % 11/25/2024 10:25 AM EDT [facility] nRBC 0 0 - 0 /100 WBC 11/25/2024 10:25 AM EDT [facility] Neutrophils Absolute 5,929 1,520 - 8,640 /uL 11/25/2024 10:25 AM EDT [facility] Lymphocytes Absolute 1,555 570 - 4,860 /uL 11/25/2024 10:25 AM EDT [facility] Monocytes Absolute 510 0 - 1,296 /uL 11/25/2024 10:25 AM EDT [facility] Eosinophils Absolute 32 0 - 864 /uL 11/25/2024 10:25 AM EDT [facility] Basophils Absolute 73 0 - 108 /uL 11/25/2024 10:25 AM EDT [facility] Whole Blood 11/25/2024 8:42 AM EDT 11/25/2024 9:44 AM EDT Narrative [facility] - 11/25/2024 10:25 AM EDT Standing orders to be drawn: Every Sunday and before 9am and prior to patient taking morning medications. Liver Transplant Fax results to [phone] Call Critical results to [phone] us Harvey Domínguez III, MD LAB BLOOD ORDERABLE S Final Result [facility] [address] [place] [address], [facility] * (ABNORMAL) CBC (11/25/2024 8:42 AM EDT) Only the most recent of45 resultswithin the time period is included. WBC 8.1 3.8 - 10.8 10E3/uL 11/25/2024 10:25 AM EDT [facility] RBC 3.71(L) 4.20 - 5.80 10E6/uL 11/25/2024 10:25 AM EDT [facility] Hemoglobin 11.7(L) 13.2 - 17.1 g/dL 11/25/2024 10:25 AM EDT [facility] Hematocrit 33.8(L) 38.5 - 50.0 % 11/25/2024 10:25 AM EDT [facility] MCV 91.1 80.0 - 100.0 fL 11/25/2024 10:25 AM EDT [facility] MCH 31.5 27.0 - 33.0 pg 11/25/2024 10:25 AM EDT [facility] MCHC 34.6 32.0 - 36.0 g/dL 11/25/2024 10:25 AM EDT [facility] RDW 20.0(H) 11.0 - 15.0 % 11/25/2024 10:25 AM EDT [facility] Platelets 193 140 - 400 10E3/uL 11/25/2024 10:25 AM EDT [facility] Comment:Slide Reviewed for P LT Clumps. None Seen. MPV 6.9(L) 7.5 - 11.5 fL 11/25/2024 10:25 AM EDT [facility] Whole Blood 11/25/2024 8:42 AM EDT 11/25/2024 9:44 AM EDT us Gerri Peterson MD LAB BLOOD ORDERABLES Final Resu lt [facility] [address] [address] * (ABNORMAL) Magnesium (11/25/2024 8:42 AM EDT) Only the most recent of36 resultswithin the time period is included. Magnesium 1.4(L) 1.5 - 2.5 mg/dL 11/25/2024 10:20 AM EDT [facility] Plasma 11/25/2024 8:42 AM EDT 11/25/2024 9:47 AM EDT us Caron Santos URBAN REDEVELOPMENT SPECIALIST LAB BLOOD ORDERABLES Denisse l Result [facility] [address] [address], [facility] * (ABNORMAL) Comprehensive metabolic panel (11/25/2024 8:42 AM EDT) Only the most recent of5 resultswithin the time period is included. Sodium 141 133 - 146 mmol/L 11/25/2024 10:20 AM EDT [facility] Potassium 4.3 3.5 - 5.3 mmol/L 11/25/2024 10:20 AM EDT [facility] Chloride 106 98 - 110 mmol/L 11/25/2024 10:20 AM EDT [facility] CO2 23 21 - 33 mmol/L 11/25/2024 10:20 AM EDT [facility] Anion Gap 12 3 - 16 mmol/L 11/25/2024 10:20 AM EDT [facility] BUN 43(H) 7 - 25 mg/dL 11/25/2024 10:20 AM EDT [facility] Creatinine 1.59(H) 0.60 - 1.30 mg/dL 11/25/2024 10:20 AM EDT [facility] Glucose 93 70 - 100 mg/dL 11/25/2024 10:20 AM EDT [facility] Calcium 10.0 8.6 - 10.3 mg/dL 11/25/2024 10:20 AM EDT [facility] Total Bilirubin 0.7 0.0 - 1.5 mg/dL 11/25/2024 10:20 AM EDT [facility] AST 9(L) 13 - 39 U/L 11/25/2024 10:20 AM EDT [facility] ALT 22 7 - 52 U/L 11/25/2024 10:20 AM EDT [facility] Alkaline Phosphatase 198(H) 36 - 125 U/L 11/25/2024 10:20 AM EDT [facility] Total Protein 7.0 6.4 - 8.9 g/dL 11/25/2024 10:20 AM EDT [facility] Albumin 4.5 3.5 - 5.7 g/dL 11/25/2024 10:20 AM EDT [facility] Osmolality, Calculated 303 278 - 305 mOsm/kg 11/25/2024 10:20 AM EDT [facility] EGFR 56 11/25/2024 10:20 AM EDT [facility] Comment:As of 2021, the estimated [...] ORDERABLES Final Resu lt Performing Organization Address [facility]/ZIP Co de Phone Number [facility] [address] * (ABNORMAL) Post Kidney Transplant Urine Culture (11/11/2024 9:13 AM EDT) Only the most recent of3 resultswithin the time period is included. Culture Result Enterococcus faecium(A) [facility] Comment: <1,000 cfu/mL Identified by MALDI-TOF MS No Further Workup Midstream Urine URINE SPECIMEN / Unknown 11/11/2024 9:13 AM EDT 11/11/2024 10:17 AM EDT us Caron Santos CNP MICROBIOLOGY - GENERAL OR DERABLES Final Result Performing Organization Address [facility]/ZIP Co de Phone Number [facility] [address] * (ABNORMAL) Renal Function Panel w/EGFR (11/11/2024 9:13 AM EDT) Only the most recent of40 resultswithin the time period is included. Sodium 141 133 - 146 mmol/L 11/11/2024 10:51 AM EDT [facility] Potassium 4.6 3.5 - 5.3 mmol/L 11/11/2024 10:51 AM EDT [facility] Chloride 108 98 - 110 mmol/L 11/11/2024 10:51 AM EDT [facility] CO2 24 21 - 33 mmol/L 11/11/2024 10:51 AM EDT [facility] Anion Gap 9 3 - 16 mmol/L 11/11/2024 10:51 AM EDT [facility] BUN 27(H) 7 - 25 mg/dL 11/11/2024 10:51 AM EDT [facility] Creatinine 1.14 0.60 - 1.30 mg/dL 11/11/2024 10:51 AM EDT [facility] Glucose 97 70 - 100 mg/dL 11/11/2024 10:51 AM EDT [facility] Calcium 8.6 8.6 - 10.3 mg/dL 11/11/2024 10:51 AM EDT [facility] Phosphorus 4.4 2.1 - 4.7 mg/dL 11/11/2024 10:51 AM EDT [facility] Albumin 3.8 3.5 - 5.7 g/dL 11/11/2024 10:51 AM EDT [facility] Osmolality, Calculated 297 278 - 305 mOsm/kg 11/11/2024 10:51 AM EDT [facility] EGFR 83 11/11/2024 10:51 AM EDT [facility] Comment:As of 2021, the estimated [...] AM EDT 11/11/2024 10:19 AM EDT Narrative [facility] - 11/11/2024 10:51 AM EDT Standing orders to be drawn: Every Sunday and before 9am and prior to patient taking morning medications. Liver Transplant Fax results to [phone] Call Critical results to [phone] DO NOT REPLACE RENAL PANEL or HEPATIC FUNCTION PANEL w/ CMP, BMP or HEPATIC PROFILE Harvey Domínguez III, MD LAB BLOOD ORDERABLE S Final Result Performing Organization Address [facility] Co de Phone Number [facility] [address] [facility] * Protein / creatinine ratio, urine (11/11/2024 9:13 AM EDT) Only the most recent of2 resultswithin the time period is included. Creatinine, Urine 71.40 mg/dL 11/11/2024 10:38 AM EDT [facility] Comment:Reference range not established for this test. Total Protein, Ur 28 mg/dL 11/11/2024 10:38 AM EDT [facility] Comment:Reference range not established for this test. Prot/Creat Ratio, Ur 0.39 ratio 11/11/2024 10:38 AM EDT [facility] Urine 11/11/2024 9:13 AM EDT 11/11/2024 10:12 AM EDT us Caron Santos CNP URINE ORDERABLES Final Re sult Performing Organization Address [facility]/ZIP Co de Phone Number [facility] [address] * EKG - scan (11/03/2024 9:07 [...] CARE TEST ORDERABLES Final Result [facility] [address] [address], [facility] * X-ray Portable Abdomen [...] Adrenal gland: No focal nodule seen. Kidneys: [place] kidneys noted with nonobstructing calcifications on the right. Findings of postsurgical changes in the left [place] kidney. Mild right hydronephrosis without an obstructive [...] Adrenal gland: No focal nodule seen. Kidneys: [place] kidneys noted with nonobstructing calcifications on theright. Findings of postsurgical changes in the left [place] kidney. Mildright hydronephrosis without an obstructive course [...] QT: 400 ms QTc: 456 ms P Benedict: 49 degrees R Benedict: 3 degrees T Benedict: 14 degrees Diagnosis Line: NORMAL SINUS RHYTHM ^ NORMAL ECG ^ ^ Confirmed by MD REID JAMES ([id number]) on 11/02/2024 6:56:52 AM Priti Alex CNP ECG ORDERABLES Final Result MUSE * US Duplex [id number] Comp (10/31/2024 10:19 AM EDT) Only the most recent of4 [...] EXAM: US ABDOMEN LIMITED EXAM: US DUPLEX [id number] COMPLETE INDICATION: Post-op liver transplant COMPARISON: None [...] visualized secondary to poor acoustic windows. The [place] right kidney measures 11.6 cm in length. [...] EXAM: US ABDOMEN LIMITED EXAM: US DUPLEX [id number] COMPLETE INDICATION: Post-op liver transplant COMPARISON: None [...] well visualized secondary to poor acousticwindows. [place] right kidney measures 11.6 cm in length. [...] 10/31/2024 10:35 AM EDT us Beata Horner [facility] US ORDERABLES Final R esult [...] EXAM: US ABDOMEN LIMITED EXAM: US DUPLEX [id number] COMPLETE INDICATION: Post-op liver transplant COMPARISON: None [...] visualized secondary to poor acoustic windows. [place] right kidney measures 11.6 cm in length. [...] EXAM: US ABDOMEN LIMITED EXAM: US DUPLEX [id number] COMPLETE INDICATION: Post-op liver transplant COMPARISON: None [...] well visualized secondary to poor acousticwindows. [place] right kidney measures 11.6 cm in length. [...] 10/31/2024 10:35 AM EDT us Beata Horner [employer] IMG US ORDERABLES Final R esult [...] limits. Procedure Note Declan Cerda MD - 06/20/2025 EXAM: US RENAL TRANSPLANT INDICATION: Other - [...] at 10/31/2024 10:29 AM EDT Beata Horner [facility] ORDERABLES Final R esult * Prepare RBC, leukoreduced, 1 Units (10/29/2024 6:16 AM EDT) Only the most recent of7 resultswithin the time period is included. [facility] Product [id number] [facility] Unit Number [id number] [facility] Dispense Status Presumed Transfused_PT HCLL Blood Expiration Date [id number] [facility] Coding System [id number] [facility] Blood Bank Product us Shay Guzmán MD BLOOD BANK PRODUCT O RDERABLES Final Result [facility] * (ABNORMAL) TEG-Bypass/ECMO/Liver HN (Factor function, Platelet/Fibrin Clot Strength w/Clot Breakdown, Heparinase In All Channels) (10/29/2024 5:07 AM EDT) Only the most recent of13 resultswithin the time period is included. Citrated Kaolin Reaction Time (TEGECMOLIVER) 8.9 4.6 - 9.1 minutes 10/29/2024 7:04 AM EDT [facility] Citrated Kaolin W/Heparinase Reaction Time (TEGECMOLIVER) 7.4 4.3 - 8.3 minutes 10/29/2024 7:04 AM EDT [facility] Citrated Kaolin Maximum Amplitude (TEGECMOLIVER) 52.9 52.0 - 69.0 mm 10/29/2024 7:04 AM EDT [facility] Citrated Functional Fibrinogen W/Heparinase Maximum Amplitude(TEGEC MOLIVER) 20.7 15.0 - 34.0 mm 10/29/2024 7:04 AM EDT [facility] Citrated Rapid Teg W/Heparinase Maximum Amplitude (TEGECMOLIVER) 49.7(L) 53.0 - 69.0 mm 10/29/2024 7:04 AM EDT [facility] Citrated Kaolin w/Heparinase Percent Lysis (TEGECMOLIVER) 0.0 0.0 - 3.2 % 10/29/2024 7:04 AM EDT [facility] Whole Blood (Citrate) 10/29/2024 5:07 AM EDT 10/29/2024 5:10 AM EDT us Kemar Sahni MD LAB BLOOD ORDERABLES Final Result Performing Organization Address City/[facility] Hospital/ZIP Co de Phone Number [facility] [address] * Transfuse RBC Transfusion Rate: Per dept routine (10/28/2024 5:23 PM EDT) Only the most recent of17 resultswithin the time period is included. us Shay Guzmán MD NURSING TREATMENT OR DERABLES - BLOOD ADMIN Final Result EXTERNAL * (ABNORMAL) Lactic Acid, STAT (10/28/2024 11:09 AM EDT) Only the most recent of11 resultswithin the time period is included. Lactate 0.3(L) 0.5 - 2.2 mmol/L 10/28/2024 11:37 AM EDT [facility] Plasma 10/28/2024 11:0 9 AM EDT 10/28/2024 11:15 AM EDT Carlos Marks MD LAB BLOOD ORDERABLES Final Result [facility] [address] * Prepare Platelets, leukoreduced (10/28/2024 6:15 AM EDT) Only the most recent of5 resultswithin the time period is included. Product Code O2799K47 [facility] Unit Number [id number] HCLL Dispense Status Presumed Transfused_PT HCLL Blood Expiration Date [facility] Coding System [id number] [facility] Product Code Q8696G08 [facility] Unit Number [id number] HCLL Dispense Status Presumed Transfused_PT HCLL Blood Expiration Date [facility]LL Coding System [id number] HCLL Attending Provider Unknown BLOOD BANK PRODUCT OR DERABLES Final Result HC[facility] * Prepare Fresh Frozen Plasma (10/28/2024 6:15 AM EDT) Only the most recent of5 resultswithin the time period is included. Product Code L7364B86 [facility] Unit Number [id number] [facility] Dispense Status Released from Crossmatch_RE HCLL Blood Expiration Date [facility] Coding System [id number] [facility] Product Code G4429Z12 [facility] Unit Number [id number] HCLL Dispense Status Presumed Transfused_PT HCLL Blood Expiration Date HCLL Coding System [id number] [facility] Product Code Z1588M61 [facility] Unit Number [id number] HCLL Dispense Status Released from Crossmatch_RE HCLL Blood Expiration Date HCLL Coding System XPMH104 [facility] Product Code Q2823D15 [facility] Unit Number [id number] HCLL Dispense Status Presumed Transfused_PT HCLL Blood Expiration Date HCLL Coding System WBMJ815 [facility] Product Code J7002W05 [facility] Unit Number [id number] HCLL Dispense Status Released from Crossmatch_RE HCLL Blood Expiration Date [id number] HCLL Coding System IEFJ072 HCLL us Attending Provider Unknown BLOOD BANK PRODUCT OR DERABLES Final Result Performing Organization Address City/[facility] Hospital/ZIP Co de Phone Number [facility] * Prepare Cryoprecipitate, 1 Units (10/28/2024 6:15 AM EDT) Only the most recent of4 resultswithin the time period is included. Product Code C1578G97 [facility] Unit Number [id number] HCLL Dispense Status Presumed Transfused_PT HCLL Blood Expiration Date HCLL Coding System PWDV044 [facility] Product Code P0956R94 [facility] Unit Number [id number] HCLL Dispense Status Presumed Transfused_PT HCLL Blood Expiration Date [id number] [facility] Coding System [id number] [facility] Blood Bank Product John Pina MD BLOOD BANK PRODUCT ORDERABLES F inal Result [facility] * (ABNORMAL) Blood Gas, Arterial, STAT (10/27/2024 2:40 PM EDT) Only the most recent of6 resultswithin the time period is included. O2 Sat, Arterial 98 10/27/2024 2:46 PM EDT [facility] FIO2 RA 10/27/2024 2:46 PM EDT [facility] pH, Arterial 7.37 7.35 - 7.45 10/27/2024 2:46 PM EDT [facility] pCO2, Arterial 35 35 - 45 mm Hg 10/27/2024 2:46 PM EDT [facility] pO2, Arterial 92 80 - 100 mm Hg 10/27/2024 2:46 PM EDT [facility] HCO3, Arterial 21(L) 22 - 26 mmol/L 10/27/2024 2:46 PM EDT [facility] CO2 Content,Arteri al 21(L) 23 - 27 mmol/L 10/27/2024 2:46 PM EDT [facility] Base Excess, Arterial -4.6(L) -2.0 - 3.0 mmol/L 10/27/2024 2:46 PM EDT [facility] %HBO2, Arterial 95.4 95.0 - 98.0 % 10/27/2024 2:46 PM EDT [facility] Carboxyhemoglo bin, Arterial 1.6 % 10/27/2024 2:46 PM EDT [facility] Comment: CARBOXYHEMOGLOBIN (CO) REFERENCE RANGES: Non-Smokers: <2 % Smokers: <8 % TOXIC: >20 % Methemoglobin, Arterial 1.0 0.0 - 1.5 % 10/27/2024 2:46 PM EDT [facility] Reduced hemoglobin, Arterial 2.1 0.0 - 5.0 % 10/27/2024 2:46 PM EDT [facility] Blood, Arterial 10/27/2024 2 :40 PM EDT 10/27/2024 2:44 PM EDT Narrative [facility] - 10/27/2024 2:46 PM EDT Post extubation John Coulter MD LAB BLOOD ORDERABLES Final R esult Performing Organization Address City/State/[facility] Co de Phone Number [facility] [address] * CARISA Rhythm Strip - Scan (10/27/2024 9:25 AM EDT) Only the most recent of8 resultswithin the time period is included. us Scanning Uchhim SCAN DOCS - NO RESULTS Final Res ult * X-ray Portable Chest (10/27/2024 8:58 AM EDT) Only the most recent of4 [...] Negative 10/27/2024 11:30 AM EDT [facility] Comment:Presence of detectab le VCA IgG antibodies. 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 EBV IGG NUM 314.00(H) 0.00 - 17.99 U/mL 10/27/2024 11:30 AM EDT [facility] Serum 10/27/2024 8:00 AM EDT 10/27/2024 8:20 AM EDT Result [facility] Kemar Sahni MD LAB BLOOD ORDERABLES Final Result Performing Organization Address City/State/[facility] Co de Phone Number [facility] [address] * Hemoglobin A1c (10/27/2024 8:00 AM EDT) Only the most recent of2 resultswithin the time period is included. Pathologist [facility] Hemoglobin A1C 5.0 4.0 - 5.6 % 10/27/2024 11:12 AM EDT [facility] Comment: Hemoglobin A1c Interpretation Guidelines: [...] AM EDT 10/27/2024 8:20 AM EDT Result [facility] Kemar Sahni MD LAB BLOOD ORDERABLES Final Result [facility] [address] [address], [facility] * X-ray Abdomen AP [...] 100 10/27/2024 6:17 AM EDT [facility] pH (ABGP) 7.30(L) 7.35 - 7.45 10/27/2024 6:17 AM EDT [facility] PCO2 (ABGP) 41 35 - 45 mm Hg 10/27/2024 6:17 AM EDT [facility] PO2 (ABGP) 192(H) 80 - 100 mm Hg 10/27/2024 6:17 AM EDT [facility] HCO3 (ABGP) 21(L) 22 - 26 mmol/L 10/27/2024 6:17 AM EDT [facility] CO2 Content (ABGP) 22(L) 23 - 27 mmol/L 10/27/2024 6:17 AM EDT [facility] Base Excess (ABGP) -5.7(L) -2.0 - 3.0 mmol/L 10/27/2024 6:17 AM EDT [facility] Sodium (ABGP) 138 136 - 146 mEq/L 10/27/2024 6:17 AM EDT [facility] Potassium (ABGP) 3.3(L) 3.5 - 5.0 mEq/L 10/27/2024 6:17 AM EDT [facility] Comment:In the event of in-v itro hemolysis, potassium results may be falsely elevated. Always interpret lab results in conjunction with clinical findings. If hemolysis is suspected, a serum sample may be collected for repeat assessment of potassium. Calcium, Free (ABGP) 5.28 4.50 - 5.30 mg/dL 10/27/2024 6:17 AM EDT [facility] Glucose (ABGP) 112(H) 70 - 100 mg/dL 10/27/2024 6:17 AM EDT [facility] Comment:There is interferenc e with whole blood glucose results on this method when Hematocrit is <25% or >60%. HCT (ABGP) 20.0(L) 40.0 - 52.0 % 10/27/2024 6:17 AM EDT [facility] HGB (ABGP) 6.5(L) 14.0 - 18.0 g/dL 10/27/2024 6:17 AM EDT [facility] %HBO2 (ABGP) 96.8 95.0 - 98.0 % 10/27/2024 6:17 AM EDT [facility] Carboxyhgb (ABGP) 2.1 % 025 6:17 AM EDT [facility] Comment: CARBOXYHEMOGLOBIN (CO) REFERENCE RANGES: Non-Smokers: <2 % Smokers: <8 % TOXIC: >20 % Methemoglobin (ABGP) 1.0 0.0 - 1.5 % 10/27/2024 6:17 AM EDT [facility] Reduced Hemoglobin (ABGP) 0.2 0.0 - 5.0 % 10/27/2024 6:17 AM EDT [facility] Lactic Acid (ABGP) 0.4(L) 0.5 - 1.6 mmol/L 10/27/2024 6:17 AM EDT [facility] Blood, Arterial 10/27/2024 6 :09 AM EDT 10/27/2024 6:14 AM EDT us Ben Blake MD LAB BLOOD ORDERABLES Final Re sult [facility] [address] [place] [address], [facility] * Transfuse Fresh Frozen [...] MD LAB BLOOD ORDERABLES Final Resul t [facility] [address] [facility] [place] [address] * Surgical Pathology Exam (10/27/2024 2:38 AM EDT) Only the most recent of2 resultswithin the time period is included. Tissue LEFT KIDNEY STRUCTURE / Unknown 10/27/2024 2:38 AM EDT Narrative [facility] - 10/27/2024 12:00 AM EDT CASE: [id number] PATIENT: BLAIR ANDERSON Clinical History: Transplant kidney with bile duct reconstruction Pre-Operative Diagnosis: Acute kidney injury superimposed on CKD Post-Operative Diagnosis: None Given Specimen(s) Submitted: A. baseline renal biopsy ; B. right lobe liver biopsy; C. left lobe liver biopsy CPT Code(s): 19673 X 1; 28765 X 2; 17193 X 4 Additional Information: FINAL DIAGNOSIS: A. [...] Pathologist signing this report is located at [facility], [address] [place] [address], [facility] [phone], CLIA ID: [id number] ADDENDUM: A. Kidney, allograft, baseline, wedge biopsy: [...] Pathologist signing this report is located at [facility], [address] [place] [address], [place], [place], [facility], , CLIA ID: [id number] Kemar Sahni MD PATHOLOGY/CYTOLOGY ORDERABL ES Edited Result - Final Performing Organization Address City/[facility] Hospital/ZIP Co de Phone Number [facility] * Routine Culture plus Stain (10/27/2024 2:15 AM EDT) Only the most recent of2 resultswithin the time period is included. Gram Stain Result No Polymorphonuclear Leukocytes Seen [facility] Gram Stain Result No Organisms Seen; [facility] Culture Result No Growth After 3 Days [facility] Fluid SPECIMEN FROM KIDNEY / Unknown 10/27/2024 2:15 AM EDT 10/27/2024 4:24 AM EDT Narrative [facility] - 10/30/2024 9:26 AM EDT 1) perfusate Harvey Domínguez III, MD MICROBIOLOGY - GENE RAL ORDERABLES Final Result Performing Organization Address [facility] Co de Phone Number [facility] [address] [place] [address] * Fungus culture (10/27/2024 2:15 AM EDT) Culture Result No Fungus Isolated At 4 Weeks [facility] Fluid SPECIMEN FROM KIDNEY / Unknown 10/27/2024 2:15 AM EDT 10/27/2024 4:24 AM EDT Narrative [facility] - 11/24/2024 7:52 AM EDT 1) perfusate Harvey Domínguez III, MD MICROBIOLOGY - GENE RAL ORDERABLES Final Result Performing Organization Address [facility]/ZIP Co de Phone Number [address] * Anaerobic culture (10/27/2024 2:15 AM EDT) Only the most recent of2 resultswithin the time period is included. Culture Result No Anaerobes Isolated in 5 Days [facility] Fluid SPECIMEN FROM KIDNEY / Unknown 10/27/2024 2:15 AM EDT 10/27/2024 4:24 AM EDT Narrative [facility] - 10/31/2024 11:43 AM EDT 1) perfusate Harvey Domínguez III, MD MICROBIOLOGY - GENE RAL ORDERABLES Final Result [facility] [address] [place] [address], [facility] * (ABNORMAL) TEG-Standard Global Hemostasis (Rapid TEG with Heparin Effect, Contains a Baseline TEG) (10/27/2024 1:51 AM EDT) Only the most recent of2 resultswithin the time period is included. Citrated Kaolin Reaction Time (TEGHEPARINASE) 10.6(H) 4.6 - 9.1 minutes 10/27/2024 2:44 AM EDT [facility] Citrated Rapid Teg Maximum Amplitude (TEGHEPARINASE) 42.3(L) 52.0 - 70.0 mm 10/27/2024 2:44 AM EDT [facility] Citrated Functional Fibrinogen Maximum Amplitude (TEGHEPARINASE) 15.0 15.0 - 32.0 mm 10/27/2024 2:44 AM EDT [facility] Citrated Kaolin W/Heparinase Reaction Time (TEGHEPARINASE) 10.5(H) 4.3 - 8.3 minutes 10/27/2024 2:44 AM EDT [facility] Citrated Kaolin K-Time (TEGHEPARINASE) 2.9(A) 0.8 - 2.1 minutes 10/27/2024 2:44 AM EDT [facility] Citrated Kaolin Angle (TEGHEPARINASE) 60.4(A) 63.0 - 78.0 degrees 10/27/2024 2:44 AM EDT [facility] Citrated Kaolin Maximum Amplitude (TEGHEPARINASE) 42.9(L) 52.0 - 69.0 mm 10/27/2024 2:44 AM EDT [facility] Citrated Functional Fibrinogen- Fibrinogen Level (TEGHEPARINASE) 273.7(L) 278.0 - 581.0 mg/dL 10/27/2024 2:44 AM EDT [facility] Whole Blood (Citrate) 10/27/2024 1:51 AM EDT 10/27/2024 2:03 AM EDT John Pina MD LAB BLOOD ORDERABLES Final Resu lt Performing Organization Address [facility] Co de Phone Number [facility] [address] * Calcium Free, Serum (10/27/2024 12:13 AM EDT) Only the most recent of3 resultswithin the time period is included. Free Calcium, Ser 5.20 4.40 - 5.40 mg/dL 10/27/2024 12:37 AM EDT [facility] Comment:Free calcium levels vary inversely with pH by approximately 5% for each 0.1 unit of pH change. Assay results have been normalized to pH = 7.40. Serum 10/27/2024 12:1 3 AM EDT 10/27/2024 12:29 AM EDT Narrative [facility] - 10/27/2024 12:37 AM EDT This test has been developed and its performance characteristics determined by [facility] which is certified under [...] ORDERABLES Final Resu lt Performing Organization Address [facility] Co de Phone Number [facility] [address] * Repeat Crossmatch (Recipient Sample) (10/26/2024 4:42 PM EDT) Repeat Cx - Recipient The request and specimen(s) for this test have been received and transported to the [facility] at [address] [place] [address]. [address] [facility] will report results directly to the client. 10/26/2024 4:49 PM EDT [facility] Whole Blood 10/26/2024 4:42 PM EDT 10/26/2024 4:49 PM EDT Narrative [facility] - 10/26/2024 4:49 PM EDT To be sent to [facility] for Donor UNOS#[id number] cross match with Blair Anderson Sveta Mojica MD LAB BLOOD ORDERABLES Final Resu lt Performing Organization Address [facility]/ZIP Co de Phone Number [facility] [address] * (ABNORMAL) Fibrinogen (10/26/2024 6:10 AM EDT) Only the most recent of2 resultswithin the time period is included. Pathologist [facility] Fibrinogen 160(L) 218 - 406 mg/dL 10/26/2024 6:41 AM EDT [facility] Plasma 10/26/2024 6:10 AM EDT 10/26/2024 6:26 AM EDT Sveta Mojica MD LAB BLOOD ORDERABLES Final Resu lt [facility] [address] * (ABNORMAL) POC INR (10/26/2024 5:16 AM EDT) Only the most recent of6 resultswithin the time period is included. Pathologist [facility] Prothrombin Time INR, POC 2.4(H) 0.8 - 1.4 10/27/2024 6:51 AM EDT [facility] Comment: Test results may vary [...] TEST ORDERABLES Final Result Performing Organization Address City/[facility] Hospital/ZIP Co de Phone Number [facility] [address] [facility] * POC Lactate (10/26/2024 5:14 AM EDT) Only the most recent of6 resultswithin the time period is included. POC Lactate 1.76 0.50 - 2.20 mmol/L 10/26/2024 5:31 AM EDT [facility] Blood, Arterial 10/26/2024 5 :14 AM EDT 10/26/2024 5:31 AM EDT Harvey Domínguez III, MD POINT OF CARE TEST ORDERABLES Final Result Performing Organization Address [facility] Co de Phone Number [facility] [address] [place] [address]. [address] * POC TCO2 (10/26/2024 5:14 AM EDT) Only the most recent of6 resultswithin the time period is included. POC TCO2, Arterial 23 23 - 27 mmol/L 10/26/2024 5:31 AM EDT [facility] Blood, Arterial 10/26/2024 5 :14 AM EDT 10/26/2024 5:31 AM EDT Harvey Domínguez III, MD POINT OF CARE TEST ORDERABLES Final Result Performing Organization Address City/[facility] Co de Phone Number [facility] [address] [facility] * POC Sodium (10/26/2024 5:14 AM EDT) Only the most recent of6 resultswithin the time period is included. POC Sodium 138 136 - 146 mmol/L 10/26/2024 5:31 AM EDT [facility] Blood, Arterial 10/26/2024 5 :14 AM EDT 10/26/2024 5:31 AM EDT us Harvey Domínguez III, MD POINT OF CARE TEST ORDERABLES Final Result Performing Organization Address City/[facility] Hospital/[facility] Co de Phone Number [facility] [address] [facility] * (ABNORMAL) POC Potassium (10/26/2024 5:14 AM EDT) Only the most recent of6 resultswithin the time period is included. POC Potassium 2.8(LL) 3.5 - 5.3 mmol/L 10/26/2024 5:31 AM EDT [facility] Blood, Arterial 10/26/2024 5 :14 AM EDT 10/26/2024 5:31 AM EDT us Harvey Domínguez III, MD POINT OF CARE TEST ORDERABLES Final Result Performing Organization Address [facility] Co de Phone Number [facility] [address] [facility] * (ABNORMAL) POC PO2 (10/26/2024 5:14 AM EDT) Only the most recent of6 resultswithin the time period is included. POC pO2, Arterial 133(H) 80 - 100 mm Hg 10/26/2024 5:31 AM EDT [facility] Blood, Arterial 10/26/2024 5 :14 AM EDT 10/26/2024 5:31 AM EDT us Harvey Domínguez III, MD POINT OF CARE TEST ORDERABLES Final Result Performing Organization Address City/State/[facility] Co de Phone Number [facility] [address] [facility]. [address] * POC PCO2 (10/26/2024 5:14 AM EDT) Only the most recent of6 resultswithin the time period is included. POC pCO2, Arterial 45 35 - 45 mm Hg 10/26/2024 5:31 AM EDT [facility] Blood, Arterial 10/26/2024 5 :14 AM EDT 10/26/2024 5:31 AM EDT us Harvey Domínguez III, MD POINT OF CARE TEST ORDERABLES Final Result Performing Organization Address [facility] Co de Phone Number [facility] [address] [facility]. [address] * (ABNORMAL) POC O2 SAT (10/26/2024 5:14 AM EDT) Only the most recent of6 resultswithin the time period is included. POC O2 Saturation, Arterial 99(H) 95 - 98 % 10/26/2024 5:31 AM EDT [facility] Blood, Arterial 10/26/2024 5 :14 AM EDT 10/26/2024 5:31 AM EDT us Harvey Domínguez III, MD POINT OF CARE TEST ORDERABLES Final Result Performing Organization Address [facility] Co de Phone Number [facility] [address] [facility]. [address] * POC HCO3 (10/26/2024 5:14 AM EDT) Only the most recent of6 resultswithin the time period is included. POC HCO3, Arterial 22 22 - 26 mmol/L 10/26/2024 5:31 AM EDT [facility] Blood, Arterial 10/26/2024 5 :14 AM EDT 10/26/2024 5:31 AM EDT us Harvey Domínguez III, MD POINT OF CARE TEST ORDERABLES Final Result [facility] [address] [facility]. [address] * POC Chloride (10/26/2024 5:14 AM EDT) Only the most recent of6 resultswithin the time period is included. POC Chloride 104 98 - 110 mmol/L 10/26/2024 5:31 AM EDT [facility] Blood, Arterial 10/26/2024 5 :14 AM EDT 10/26/2024 5:31 AM EDT Harvey Domínguez III, MD POINT OF CARE TEST ORDERABLES Final Result Performing Organization Address [facility] Co de Phone Number [facility] [address] [facility] * (ABNORMAL) POC Base Excess (10/26/2024 5:14 AM EDT) Only the most recent of6 resultswithin the time period is included. POC Base Excess, Arterial -5(L) -2 - 3 mmol/L 10/26/2024 5:31 AM EDT [facility] Blood, Arterial 10/26/2024 5 :14 AM EDT 10/26/2024 5:31 AM EDT Harvey Domínguez III, MD POINT OF CARE TEST ORDERABLES Final Result Performing Organization Address [facility] Co de Phone Number [facility] [address] [facility]. [address] * POC Anion Gap (10/26/2024 5:14 AM EDT) Only the most recent of6 resultswithin the time period is included. POC Anion Gap, Arterial 12 3 - 16 mmol/L 10/26/2024 5:31 AM EDT [facility] Blood, Arterial 10/26/2024 5 :14 AM EDT 10/26/2024 5:31 AM EDT Harvey Domínguez III, MD POINT OF CARE TEST ORDERABLES Final Result Performing Organization Address [facility] Co de Phone Number [facility] [address] [facility]. [address] * POC Sample Type (10/26/2024 5:14 AM EDT) Only the most recent of6 resultswithin the time period is included. POC Sample Type Arterial 10/26/2024 5:31 AM EDT [facility] Blood, Arterial 10/26/2024 5 :14 AM EDT 10/26/2024 5:31 AM EDT us Harvey Domínguez III, MD POINT OF CARE TEST ORDERABLES Final Result Performing Organization Address [facility] de Phone Number [facility] [address] [facility]. [address] * (ABNORMAL) POC pH (10/26/2024 5:14 AM EDT) Only the most recent of6 resultswithin the time period is included. POC pH, Arterial 7.29(L) 7.35 - 7.45 10/26/2024 5:31 AM EDT [facility] Blood, Arterial 10/26/2024 5 :14 AM EDT 10/26/2024 5:31 AM EDT Harvey Domínguez III, MD POINT OF CARE TEST ORDERABLES Final Result Performing Organization Address [facility] Co de Phone Number [facility] [address] [facility]. [address] * (ABNORMAL) POC hematocrit (10/26/2024 5:14 AM EDT) Only the most recent of6 resultswithin the time period is included. POC Hematocrit 28.0(L) 40 - 52 % 10/26/2024 5:31 AM EDT [facility] Blood, Arterial 10/26/2024 5 :14 AM EDT 10/26/2024 5:31 AM EDT us Harvey Domínguez III, MD POINT OF CARE TEST ORDERABLES Final Result Performing Organization Address [facility] Co de Phone Number [facility] [address] * (ABNORMAL) POC Ionized Calcium (10/26/2024 5:14 AM EDT) Only the most recent of6 resultswithin the time period is included. POC Ionized Calcium 5.50(H) 4.50 - 5.30 mg/dL 10/26/2024 5:31 AM EDT [facility] Blood, Arterial 10/26/2024 5 :14 AM EDT 10/26/2024 5:31 AM EDT us Harvey Domínguez III, MD POINT OF CARE TEST ORDERABLES Final Result Performing Organization Address [facility] Co de Phone Number [facility] [address] [facility]. [address] * (ABNORMAL) POC Glucose (10/26/2024 5:14 AM EDT) Only the most recent of6 resultswithin the time period is included. POC Glucose, Arterial 183(H) 70 - 100 mg/dL 10/26/2024 5:31 AM EDT [facility] Blood, Arterial 10/26/2024 5 :14 AM EDT 10/26/2024 5:31 AM EDT us Harvey Domínguez III, MD POINT OF CARE TEST ORDERABLES Final Result Performing Organization Address [facility] Co de Phone Number [facility] [address] [facility]. [address] * (ABNORMAL) POC Hemoglobin (10/26/2024 5:14 AM EDT) Only the most recent of6 resultswithin the time period is included. [facility] POC Hemoglobin 9.5(L) 14.0 - 18.0 g/dL 10/26/2024 5:31 AM EDT [facility] Blood, Arterial 10/26/2024 5 :14 AM EDT 10/26/2024 5:31 AM EDT us Harvey Domínguez III, MD POINT OF CARE TEST ORDERABLES Final Result Performing Organization Address [facility] Co de Phone Number [facility] [address] * (ABNORMAL) TEG-Global With Lysis (Baseline TEG with LY30, Will NOT Show Heparin Effect) (53:31 AM EDT) [facility] Citrated Kaolin Reaction Time (TEGLYSIS) 6.8 4.6 - 9.1 minutes 10/26/2024 5:02 AM EDT [facility] Citrated Rapid Teg Maximum Amplitude (TEGLYSIS) <40.0(L) 52.0 - 70.0 mm 10/26/2024 5:02 AM EDT [facility] Citrated Functional Fibrinogen Maximum Amplitude (TEGLYSIS) <4.0(L) 15.0 - 32.0 mm 10/26/2024 5:02 AM EDT [facility] Citrated Kaolin Percent Lysis (TEGLYSIS) 1.4 0.0 - 2.6 % 10/26/2024 5:02 AM EDT [facility] Whole Blood (Citrate) 10/26/2024 3:31 AM EDT 10/26/2024 3:40 AM EDT us Eber Quinones MD LAB BLOOD ORDERABLES Fin al Result Performing Organization Address City/[facility] Hospital/ZIP Co de Phone Number [facility] [address] [facility] * CENTRAL LINE SINGLE LUMEN PERFORMABLE (10/25/2024 11:13 PM EDT) Narrative Ben Blake MD - 10/25/2024 11:13 PM EDT Ben Blake MD 10/26/2024 7:45 PM Adolphus Emily Cath Date/Time: 10/25/2024 11:13 PM Performed [...] EDT) Culture Result <1,000 cfu/mL [facility] Culture Result Skin/Urogeni rony Mckayla. No Further Workup. [facility] Newly Placed Berkowitz Urine URINE SPECIMEN / Unknown 10/25/2024 11:08 PM EDT Comment:urine culture Narrative [facility] - 10/28/2024 9:59 AM EDT urine culture urine culture Harvey Domínguez III, MD MICROBIOLOGY - GENE RAL ORDERABLES Final Result Performing Organization Address City/State/[facility] Co de Phone Number [facility] [address] [address] * Insert Arterial Line (10/25/2024 10:45 [...] Nonreactive 10/25/2024 11:13 PM EDT [facility] Serum 10/25/2024 10:1 7 PM EDT 10/25/2024 10:17 PM EDT Narrative [facility] - 10/25/2024 11:13 PM EDT HAV antibodies not detected Aysha Gill MD LAB BLOOD ORDERABLES F inal Result Performing Organization Address [facility] Co de Phone Number [facility] [address] * Iron Studies (Iron + TIBC) (10/25/2024 10:17 PM EDT) Only the most recent of2 resultswithin the time period is included. Iron 128 50 - 212 ug/dL 10/25/2024 10:44 PM EDT [facility] % Iron Saturation SEE COMMENT 15.0 - 55.0 % 10/25/2024 10:44 PM EDT [facility] Comment:Unable to calculate result because contributing result outside reportable range.. TIBC SEE COMMENT 261 - 462 ug/dL 10/25/2024 10:44 PM EDT [facility] Comment:Unable to calculate result because contributing result outside reportable range.. Serum 10/25/2024 10:1 7 PM EDT 10/25/2024 10:17 PM EDT Aysha Gill MD LAB BLOOD ORDERABLES F inal Result Performing Organization Address City/[facility] Hospital/ZIP Co de Phone Number [facility] [address] * Hepatitis B Core Antibody (10/25/2024 10:17 PM EDT) Pathologist [facility] Hep B Core Total Ab Nonreactive Nonreactive 10/25/2024 11:07 PM EDT [facility] Comment:Health Department no tified in accordance with reportable infectious disease guidelines. Serum 10/25/2024 10:1 7 PM EDT 10/25/2024 10:17 PM EDT Narrative [facility] - 10/25/2024 11:07 PM EDT A nonreactive final interpretation indicates that anti-HBc antibodies were not detected in the sample; it is possible that the individual is not infected with HBV. Aysha Gill MD LAB BLOOD ORDERABLES F inal Result Performing Organization Address [facility] Hospital/ZIP Co de Phone Number [facility] [address] [facility] * Hepatitis C Antibody (10/25/2024 10:17 PM EDT) Only the most recent of3 resultswithin the time period is included. Pathologist [facility] HCV Ab Nonreactive Nonreactive 10/25/2024 11:16 PM EDT [facility] Comment:Health Department no tified in accordance with reportable infectious disease guidelines. Serum 10/25/2024 10:1 7 PM EDT 10/25/2024 10:17 PM EDT Narrative [facility] - 10/25/2024 11:16 PM EDT Antibodies to HCV not detected; does not exclude the possibility of exposure to HCV. Aysha Gill MD LAB BLOOD ORDERABLES F inal Result [facility] [address] [facility] * HIV 1+2 Antibody/Antigen with Reflex (10/25/2024 10:17 PM EDT) Only the most recent of2 resultswithin the time period is included. Pathologist [facility] HIV 1+2 AB/AGN Nonreactive Nonreactive 10/25/2024 11:03 PM EDT [facility] Serum 10/25/2024 10:1 7 PM EDT 10/25/2024 10:16 PM EDT Narrative [facility] - 10/25/2024 11:03 PM EDT \HIVRNR Aysha Gill MD LAB BLOOD ORDERABLES F inal Result Performing Organization Address [facility] Co de Phone Number [facility] [address] [facility] * (ABNORMAL) Hepatitis B Surface Antibody, Quantitati (10/25/2024 10:17 PM EDT) Only the most recent of3 resultswithin the time period is included. HBSAB NUMBER 10.70(H) 0.00 - 9.99 mIU/mL 10/25/2024 11:52 PM EDT [facility] Hep B S Ab Equivocal (A) Nonreactive 10/25/2024 11:52 PM EDT [facility] Serum 10/25/2024 10:1 7 PM EDT 10/25/2024 10:17 PM EDT Aysha Gill MD LAB BLOOD ORDERABLES F inal Result Performing Organization Address [facility] Co de Phone Number [facility] [address] [facility] * Hepatitis B surface antigen (10/25/2024 10:17 PM EDT) Only the most recent of3 resultswithin the time period is included. Hep B Surface Ag Nonreactive Nonreactive 10/25/2024 11:12 PM EDT [facility] Comment:Health Department no tified in accordance with reportable infectious disease guidelines. Serum 10/25/2024 10:1 7 PM EDT 10/25/2024 10:17 PM EDT Narrative [facility] - 10/25/2024 11:12 PM EDT Specimen is considered negative for HBsAg. us Aysha Gill MD LAB BLOOD ORDERABLES F inal Result Performing Organization Address City/[facility] Hospital/ZIP Co de Phone Number [facility] [address] [place] [address]. [address] * (ABNORMAL) APTT, NO ANTICOAGULANT (10/25/2024 10:17 PM EDT) aPTT 41.7(H) 25.5 - 35.0 seconds 10/25/2024 10:36 PM EDT [facility] Plasma 10/25/2024 10:1 7 PM EDT 10/25/2024 10:17 PM EDT us Aysha Gill MD LAB BLOOD ORDERABLES F inal Result Performing Organization Address [facility] Co de Phone Number [facility] [address] [place] [address]. [address] * PTH (10/25/2024 10:17 PM EDT) PTH 36.0 12.0 - 88.0 pg/mL 10/25/2024 11:01 PM EDT [facility] Serum 10/25/2024 10:1 7 PM EDT 10/25/2024 10:17 PM EDT us Aysha Gill MD LAB BLOOD ORDERABLES F inal Result Performing Organization Address [facility] Co de Phone Number [facility] [address] [place] [address]. [address] * (ABNORMAL) Ferritin (10/25/2024 10:17 PM EDT) Only the most recent of2 resultswithin the time period is included. Ferritin 623.2(H) 23.9 - 336.2 ng/mL 10/25/2024 11:02 PM EDT [facility] Serum 10/25/2024 10:1 7 PM EDT 10/25/2024 10:17 PM EDT us Aysha Gill MD LAB BLOOD ORDERABLES F inal Result [facility] [address] [place] [id number], [facility] * (ABNORMAL) Venous Blood Gas, Line/Syringe (10/25/2024 10:00 PM EDT) Only the most recent of3 resultswithin the time period is included. PH-Line Draw 7.38 7.32 - 7.42 10/25/2024 10:08 PM EDT [facility] PCO2-Line Draw 33(L) 41 - 51 mm Hg 10/25/2024 10:08 PM EDT [facility] PO2-Line Draw 33 25 - 40 mm Hg 10/25/2024 10:08 PM EDT [facility] HCO3-Line Draw 20(L) 24 - 28 mmol/L 10/25/2024 10:08 PM EDT [facility] CO2 Content-Line Draw 21(L) 25 - 29 mmol/L 10/25/2024 10:08 PM EDT [facility] Base Excess-Line Draw -5.0(L) -2.0 - 3.0 mmol/L 10/25/2024 10:08 PM EDT [facility] %HBO2-Line Draw 53.8 40.0 - 70.0 % 10/25/2024 10:08 PM EDT [facility] Carboxyhgb-Ludivina e Draw 1.9 % 10/25/2024 10:08 PM EDT [facility] Comment: CARBOXYHEMOGLOBIN (CO) REFERENCE RANGES: Non-Smokers: <2 % Smokers: <8 % TOXIC: >20 % Methemoglobin- Line Draw 0.2 0.0 - 1.5 % 10/25/2024 10:08 PM EDT [facility] Reduced Hemoglobin-Ludivina e Draw 44.1(H) 0.0 - 5.0 % 10/25/2024 10:08 PM EDT [facility] Venous, Line Draw 10/25/2024 10:00 PM EDT 10/25/2024 10:04 PM EDT Aysha Gill MD LAB BLOOD ORDERABLES F inal Result Performing Organization Address [facility] Co de Phone Number [facility] [address] [facility] * Donor Specific Antibody (DSA) (10/25/2024 10:00 PM EDT) AntiDonor Antibodies The request and specimen(s) for this test have been received and transported to the [facility] at [address] [place] [address]. The [facility] will report results directly to the client. 10/25/2024 10:20 PM EDT [facility] Comment:Testing performed by [facility], [facility], [address] [place] [address] [facility] report has been forwarded to the appropriate ordering location. Please refer to this report for patient results. Serum 10/25/2024 10:0 0 PM EDT 10/25/2024 10:20 PM EDT Aysha Gill MD LAB BLOOD ORDERABLES F inal Result Performing Organization Address [facility] de Phone Number [facility] [address] [place] [address]. [address] * Hepatitis C RNA, Quant Reflex [...] ORDERABLES F inal Result Performing Organization Address City/[facility] Hospital/ZIP Co de Phone Number [facility] [address] * Toxoplasma gondii antibody, IgG (10/25/2024 8:18 PM EDT) Only the most recent of2 resultswithin the time period is included. Toxoplasma Gondii IgG <3.0 0.0 - 7.1 IU/mL 10/27/2024 7:55 AM EDT [facility] Comment: Negative <7.2 Equivocal 7.2 - 8.7 Positive >8.7 Serum 10/25/2024 8:18 PM EDT 10/27/2024 8:06 AM EDT Narrative [facility] - 10/27/2024 8:06 AM EDT PERFORMED AT: [facility] [address] [id number] FUNCTIONAL SKILLS TUTOR: Bassam Khalil, PhD PHONE: [phone] Aysha Gill MD LAB BLOOD ORDERABLES F inal Result Performing Organization Address [facility] Co de Phone Number [facility] [address] * ABO/Rh (10/25/2024 7:46 PM EDT) Only the most recent of5 resultswithin the time period is included. ABO Grouping O 10/25/2024 10:23 PM EDT [facility] Rh Type Positive 10/25/2024 10:23 PM EDT [facility] Blood 10/25/2024 7:46 PM EDT 10/25/2024 9:54 PM EDT Ben Blake MD BLOOD BANK TEST ORDERABLES Fi nal Result [facility] [address] [facility] * Antibody Screen (10/25/2024 7:46 PM EDT) Only the most recent of3 resultswithin the time period is included. Antibody Screen Negative 10/25/2024 10:41 PM EDT [facility] Blood 10/25/2024 7:46 PM EDT 10/25/2024 9:54 PM EDT Narrative [facility] - 10/25/2024 10:44 PM EDT Testing performed by [facility] Transfusion Service Ben Blake MD BLOOD BANK TEST ORDERABLES Fi nal Result [facility] [address] [place] [address], [facility] * Hox - HLA Antibody-Detailed Report (10/22/2024 12:32 PM EDT) 10/22/2024 12:3 2 PM EDT Abdulkadir Gaspar MD LAB BLOOD ORDERABLES Final Resul t [facility] [email or web address] [place] [address] * HOX - HLA CROSSMATCH + Detailed Antibody (10/20/2024 5:04 PM EDT) 10/20/2024 5:04 PM EDT Abdulkadir Gaspar MD LAB BLOOD ORDERABLES Final Resul t [facility] [address] [place] [address] * Hox - ABO Typing Report (10/20/2024 5:03 PM EDT) 10/20/2024 5:03 PM EDT Abdulkadir Gaspar MD LAB BLOOD ORDERABLES Final Resul t Performing Organization Address City/[facility] Hospital/ZIP Co de Phone Number [facility] [email or web address] [place] [address] * X-ray Comparison Images (10/20/2024 9:10 AM EDT) Only the most recent of7 resultswithin the time period is included. Narrative EXTERNAL - 10/20/2024 9:10 AM EDT Images associated with this accession number were presented to us for comparison to an examination performed here. us Provider Not In System IMG DIAGNOSTIC IMAGING OR DERABLES Final Result Performing Organization Address City/[facility] Hospital/[facility] Co de Phone Number EXTERNAL * PRA-HLA Ab Screen (Cytotoxic) (10/15/2024 6:08 AM EDT) [facility] The request and specimen(s) for this test have been received and transported to the [facility] at [address] [place] [address] [facility] will report results directly to the client. 10/15/2024 6:42 AM EDT [facility] Comment:The request and spec imen(s) for this test have been received and transported to the [facility] [place] at [address] [place] [address] [facility] will report results directly to the client. Serum 10/15/2024 6:08 AM EDT 10/15/2024 6:42 AM EDT us Cosmo Pacheco MD LAB BLOOD ORDERABLES Final Resul t Performing Organization Address [facility] de Phone Number [facility] [address] [place] [address] * LEFT HEART CATH (10/14/2024 2:09 PM EDT) 10/14/2024 11:4 7 AM EDT Narrative [facility] - 10/14/2024 9:27 PM EDT *[facility]* Cardiac Carbon Sequestration Plant Engineer [address] [place] [address] CATHETERIZATION LAB STUDY Patient: Blair Anderson Age: [...] manner. 3. Right radial artery access. A [id number] Glidesheath - Slender - .021 sheath was [...] + !LV pressure s/d, ed !112/1, 22, dP/sl=2698ki Hg/s! + + + !Aortic pressure s/d (m)!106/58 (75) ! + + + ATTESTATION: Dr. Matta was present for the entire procedure. Dr. Jay Quan was the initial author of this report. Prepared and electronically signed by Irving Matta MD [id number] Procedure Note Irving Matta MD - 10/14/2024 *[facility]* Cardiac Carbon Sequestration Plant Engineer [address] [place] [address] CATHETERIZATION LAB STUDY Patient: Blair Anderson Age: [...] manner. 3. Right radial artery access. A [id number] Glidesheath - Slender - .021sheath was advanced [...] complications. Contrast: Omnipaque 350 25ml (total dose). Wxtptptsu125 125ml (wasted). Radiation: Fluoroscopy time: 15min. Total [...] + !LV pressure s/d, ed !112/, 22, dP/ln=4044nl Hg/s! + + + !Aortic pressure s/d (m)!106/58 (75) ! + + + ATTESTATION: Dr. Matta was present for the entire procedure. Dr. Jay Quan wasthe initial author of this report. Prepared and electronically signed by Irving Matta MD [id number]:27:50 [place] [id number] Final Result [facility] * Cardiac Cath Documents [...] of GADOBUTROL 1 MMOL/ML INTRAVENOUS SYRINGE ([facility]) administered intravenously COMPARISON: CT 09/03/2024. Ultrasound [...] of GADOBUTROL 1 MMOL/ML INTRAVENOUS SYRINGE ([facility])administered intravenously COMPARISON: CT 09/03/2024. Ultrasound 10/07/2024. [...] 5:35 AM EDT) Only the most recent of2 resultswithin the time period is included. Ammonia 203(HH) 27 - 90 ug/dL 10/13/2024 7:16 AM EDT [facility] Comment: HEMOLYSIS EVIDENT. RESULTS MAY BE INFLUENCED. Critical Result [id number] Called to and read back by: KEY MELO RN at: 10/13/2024 07:15:55 by:NISREEN Plasma 10/13/2024 5:35 AM EDT 10/13/2024 6:19 AM EDT us Ellis Mays DO LAB BLOOD ORDERABLES Final Resul t [facility] [address] [place] [address], [facility] * Vancomycin, random (10/11/2024 3:02 AM EDT) Only the most recent of5 resultswithin the time period is included. Vancomycin Random 13.4 ug/mL 10/11/2024 3:37 AM EDT [facility] Comment:Reference range not established for this test. Plasma 10/11/2024 3:02 AM EDT 10/11/2024 3:08 AM EDT us Jodi Ortiz PharmD LAB BLOOD ORDERABLES Final Result [facility] [address] * IR Paracentesis incl imaging guide [...] diagnostic and therapeutic paracentesis. Bakari Wahl CNP, Electrical Machinist Procedure and Findings: The procedure was performed [...] Using ultrasound guidance, a 10 cm, 5-F Allyes Advertisement [employer] Centesis catheter was placed into the right [...] for diagnostic andtherapeutic paracentesis. Bakari Wahl CNP, Electrical Machinist Procedure and Findings: The procedure was performed [...] 1:51 PM EDT) Only the most recent of3 resultswithin the time period is included. Gram Stain Result Cytospin Results: [facility] Gram Stain Result Polymorphonuclear Leukocytes Seen; [facility] Gram Stain Result No Organisms Seen; [facility] Culture Result No Growth After 5 Days [facility] Fluid ABDOMEN / Unknown 10/10/2024 1:51 PM EDT 10/10/2024 3:56 PM EDT us Gerri Peterson MD MICROBIOLOGY - GENERAL ORDERABL ES Final Result Performing Organization Address City/State/[facility] Co de Phone Number [facility] [address] * (ABNORMAL) Body fluid cell count (10/10/2024 1:51 PM EDT) Only the most recent of3 resultswithin the time period is included. Color, Fluid Yellow(A) Colorless, Pale Yellow 10/10/2024 5:29 PM EDT [facility]ALTH [facility] Clarity, Fluid Clear 10/10/2024 5:29 PM EDT [facility] Neutrophil %, Fluid 9 % 10/10/2024 5:29 PM EDT [facility] Lymphocytes %, Fluid 13 % 10/10/2024 5:29 PM EDT [facility] Mesothelial %, Fluid 6 % 10/10/2024 5:29 PM EDT HEALTH LAB Macrophage %, Fluid 72 % 10/10/2024 5:29 PM EDT [facility] RBC, Fluid 2,662 /uL 10/10/2024 4:41 PM EDT [facility] Total Nucleated Cells, Fluid 89 /uL 10/10/2024 4:41 PM EDT [facility] Comment:Total Nucleated Cell s represent WBCs and other nucleated cells in the fluid such as lining cells. Ascitic Fluid ABDOMEN / Unknown 1:51 PM EDT 10/10/2024 3:56 PM EDT us Gerri Peterson MD BODY FLUIDS AND STOOLS ORDERABL ES Final Result [facility] [address] * UPPER GI ENDOSCOPY (10/10/2024 11:48 AM EDT) 10/10/2024 11:4 8 AM EDT Narrative [facility] - 10/10/2024 12:34 PM EDT [id number] Procedure Date: 10/10/2024 11:48 AM Patient Name: Blair Anderson Date of : 1985 Admit Type: Inpatient Age: 39 Gender: Male Note Status: Finalized Attending MD: Lino Soto MD, [id number] Procedure: Upper GI endoscopy Indications: Gastroesopahgeal variceal [...] verified by the physician, the nurse, the marine equipment design engineer and the noc technician in the pre-procedure area in the [...] to hypotension Procedure Code(s): --- Professional --- 12140, GC, Esophagogastroduodenoscopy, flexible, transoral; diagnostic, including collection of specimen(s) by brushing or washing, when performed (separate procedure) Diagnosis Code(s): --- Professional --- I85.00, Esophageal 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 All rights reserved. The codes documented in this report are preliminary and upon developmental electronics assembler review may be revised to meet current [...] 12:10:16 PM Scope Out: 12:17:[address] [place] [address], [id number] us Provider Not In System PROCEDURE/MINOR SURGICAL ORDERABLES Final Result [facility] * ECHO STRESS W/ CONTRAST (10/09/2024 4:37 PM EDT) Anatomical Region Laterality Modality Chest Ultrasound 10/09/2024 2:40 PM EDT Narrative 10/09/2024 6:45 PM EDT * [facility]* [address] [place] [id number] Stress Echocardiogram Patient: Blair Anderson Room: 8142 Height: 76in MR Number: [id number] : 1985 Weight: 262lb Account: [id number] Gender: M BP: 125 / 77 Study Date: 10/09/2024 Age: 39 BSA: 2.48m^2 Referring physician: Gerri Peterson Interpreting physician: Tonya Henriquez MD FELLOW Lisa Jha MD PERFORMING Tonya Henriquez MD BOBBIN DRIER [employer] ORDERING Gerri Peterson REFERRING Gerri Petesron ATTENDING Tequila Newton ADMITTING Gómez Blanchard Procedure:STRESS [...] was augmented by the addition of hand urban redevelopment specialist and leg lifts. The infusion was terminated [...] at baseline or with provocation, shows no ynrfr-fq-blvb atrial level shunt. - Pulmonary arteries: Systolic [...] at baseline or with provocation, shows no bqdye-ju-gqzc atrial level shunt. Pulmonary artery: - Systolic [...] at baseline or with provocation, shows no alfzm-ux-istb atrial level shunt. Pericardium: - There is [...] peak heart rate and blood pressure was 66931rh Hg/min. Stress testing did not produce any [...] Reviewed and confirmed by Tonya Henriquez MD [id number] Procedure Note Tonya Henriquez MD - 10/09/2024 * [facility]* [address] [place] [address] Stress Echocardiogram Patient: Blair Anderson Room: 8142 Height: 76in MR Number: [id number] : 1985 Weight: 262lb Account: [id number] Gender: M BP: 125 / 77 Study Date: 10/09/2024 Age: 39 BSA: 2.48m^2 Referring physician: Gerri Peterson Interpreting physician: Tonya Henriquez MD FELLOW Lisa Jha MD PERFORMING Tonya Henriquez MD BOBBIN DRIER [employer] ORDERING Gerri Peterson REFERRING Gerri Peterosn ATTENDING Tequila Newton ADMITTING Gómez Blanchard Procedure:STRESS ECHO - PHARMACOLOGIC Order: Indications: Pre-Operative Clearance (Z01.818). PMH: EtOH Use Disorder. Risk factors: Hypertension. Dyslipidemia. Study data: Height: 76in. 193cm. Weight: 262lb. 118.8kg. The previousstudy was not available, so comparison was made to the report of 07/15/2024. Study status: Routine. Procedure[facility]. Intravenous [...] was augmented by the addition of hand urban redevelopment specialist and leg lifts. The infusion was terminated [...] at baseline or with provocation, shows no ijqxu-gx-qsfj atrial level shunt. - Pulmonary arteries: Systolic [...] study at baseline or with provocation, showsno myzft-xo-zizw atrial level shunt. Pulmonary artery: - Systolic [...] at baseline or with provocation, shows no zmcei-aq-nigk atrial level shunt. Pericardium: - There is [...] heart rate). The maximal predicted heart rate [id number]. The target heart rate was 152bpm. The target heart rate was achieved.The heart rate response to stress is normal. There is a normal resting blood pressure with an appropriate response to stress. The rate-pressureproduct for the peak heart rate and blood pressure was 58131nm Hg/min. Stress testing did not produce any [...] 1.3 cm <=2.1 Legend: (L) and (H) amyco values outside specified reference range. (N) sparks values inside specified reference range. I personally reviewed the images and agree with the interpretation ofthe resident. Reviewed and confirmed by Tonya Henriquez MD [id number] us Gerri Peterson MD CV ECHO ORDERABLES Final Result * Renal Tx Recipient (10/09/2024 4:59 AM EDT) Pathologist [facility] Renal Transplant Recipient The request and specimen(s) for this test have been received and transported to the [facility] at [address] [place] [address] [facility] will report results directly to the client. 10/09/2024 7:26 AM EDT [facility] Blood 10/09/2024 4:59 AM EDT 10/09/2024 7:26 AM EDT us Aaron Gonzalez MD LAB BLOOD ORDERABLES Final Resu lt [facility] [address] * (ABNORMAL) MMR(IgG) Panel (Measles, Mumps, Rubella) (10/08/2024 10:25 AM EDT) Only the most recent of2 resultswithin the time period is included. Pathologist [facility] Mumps IgG Positive 10/08/2024 11:39 AM EDT [facility] MUMPS IGG NUM 99.00(H) 0.0 - 8.9 U/mL 10/08/2024 11:39 AM EDT [facility] Rubella IgG Scr Positive 10/08/2024 11:40 AM EDT [facility] RUB NUM 4.15(H) 0.00 - 0.89 INDEX 10/08/2024 11:40 AM EDT [facility] Rubeola Ab, IgG Positive 10/08/2024 11:39 AM EDT [facility] RUB IGG NUM 273.00(H) 0.00 - 13.40 U/mL 10/08/2024 11:39 AM EDT [facility] Serum 10/08/2024 10:2 5 AM EDT 10/08/2024 10:49 AM EDT Narrative [facility] - 10/08/2024 11:40 AM EDT [...] BLOOD ORDERABLES Final Resu lt [facility] [address] [facility] * QuantiFERON TB2 Ag (10/08/2024 10:25 AM EDT) QuantiFERON TB2 Ag Value 0.07 10/10/2024 10:41 AM EDT [facility] Plasma 10/08/2024 10:2 5 AM EDT 10/08/2024 11:05 AM EDT Result [facility] Gerri Peterson MD LAB BLOOD ORDERABLES Final Resu lt Performing Organization Address City/Va Hospital/ZIP Co de Phone Number [facility] [address] [facility]. [address] * QuantiFERON TB1 Ag (10/08/2024 10:25 AM EDT) QuantiFERON TB1 Ag Value 0.06 10/10/2024 10:41 AM EDT [facility] Plasma 10/08/2024 10:2 5 AM EDT 10/08/2024 11:05 AM EDT Result [facility] Gerri Peterson MD LAB BLOOD ORDERABLES Final Resu lt Performing Organization Address City/Va Hospital/ZIP Co de Phone Number [facility] [address] * QuantiFERON Nil (10/08/2024 10:25 AM EDT) QuantiFERON Nil 0.06 10:41 AM EDT [facility] Plasma 10/08/2024 10:2 5 AM EDT 10/08/2024 11:05 AM EDT Gerri Peterson MD LAB BLOOD ORDERABLES Final Resu lt Performing Organization Address [facility]/Va Hospital/ZIP Co de Phone Number [facility] [address] [facility] * QuantiFERON Mitogen (10/08/2024 10:25 AM EDT) QuantiFERON Interpretation Negative Negative 10/10/2024 10:41 AM EDT [facility] Comment:Negative result geovanny cates M. tuberculosis infection is NOT likely. Negative results do not preclude tuberculosis infection (especially in immunosuppressed patients). Negative results have a TB antigen minus Nil value less than 0.35 IU/mL. In cases with high suspicion of disease, retesting or additional testing with medical evaluation may be useful. QuantiFERON Mitogen 4.87 10/10 10:41 AM EDT [facility] Plasma 10/08/2024 10:2 5 AM EDT 10/08/2024 11:05 AM EDT Narrative [facility] - 10/10/2024 10:41 AM EDT [...] BLOOD ORDERABLES Final Resu lt [facility] [address] [facility] * (ABNORMAL) Vitamin D 25 Hydroxy (10/08/2024 10:25 AM EDT) Vit D, 25-Hydroxy 7.1(L) 30.0 - 100.0 ng/mL 10/08/2024 11:36 AM EDT [facility] Comment: Vitamin D deficiency has been defined by the [place] of Medicine (IOM) and an Endocrine Society [...] BLOOD ORDERABLES Final Resu lt [facility] [address] [place] [address]. [address] * Reticulocyte Count, Auto (10/08/2024 7:41 AM EDT) Retic Ct Pct 1.35 0.50 - 2.00 % 10/08/2024 9:12 AM EDT [facility] Retic Ct Abs 26,190 25,000 - 90,000 /uL 10/08/2024 9:14 AM EDT [facility] Immature Retic Fract 0.37 0.09 - 0.56 10/08/2024 9:12 AM EDT [facility] Whole Blood 10/08/2024 7:41 AM EDT 10/08/2024 8:51 AM EDT Gómez Blanchard MD LAB BLOOD ORDERABLES Final Res ult Performing Organization Address [facility]/Va Hospital/ZIP Co de Phone Number [facility] [address] * (ABNORMAL) Haptoglobin (10/08/2024 7:41 AM EDT) Haptoglobin <30(L) 44 - 215 mg/dL 10/08/2024 8:53 AM EDT [facility] Serum 10/08/2024 7:41 AM EDT 10/08/2024 7:51 AM EDT Kush Posada MD, PhD LAB BLOOD ORDERABLES Final Result Performing Organization Address [facility]/Va Hospital/[facility] Co de Phone Number [facility] [address] [facility] * (ABNORMAL) Lactate dehydrogenase (10/08/2024 5:36 AM EDT) LD 102(L) 110 - 270 U/L 10/08/2024 8:20 AM EDT [facility] Plasma 10/08/2024 5:36 AM EDT 10/08/2024 7:58 AM EDT Gómez Blanchard MD LAB BLOOD ORDERABLES Final Res ult Performing Organization Address [facility]/Va Hospital/[facility] Co de Phone Number [facility] [address] [facility] * Enteric Pathogen Panel (10/07/2024 10:50 PM EDT) Only the most recent of2 resultswithin the time period is included. Campylobacter Group (C. ecoli, C. jejuni, C. trino) Not Detected Not Detected 10/08/2024 4:40 AM EDT [facility] Salmonella species Not Detected Not Detected 10/08/2024 4:40 AM EDT [facility] Shigella species Not Detected Not Detected 10/08/2024 4:40 AM EDT [facility] Vibrio Group (Vibrio cholerae, Vibrio parahaemolyticus) Not Detected Not Detected 10/08/2024 4:40 AM EDT [facility] Yersinia enterocolitica Not Detected Not Detected 10/08/2024 4:40 AM EDT [facility] Shiga toxin 1 Not Detected Not Detected 10/08/2024 4:40 AM EDT [facility] Shiga toxin 2 Not Detected Not Detected 10/08/2024 4:40 AM EDT [facility] Norovirus Not Detected Not Detected 10/08/2024 4:40 AM EDT [facility] Rotavirus Not Detected Not Detected 10/08/2024 4:40 AM EDT [facility] Comment: The Enteric Pathogen Panel [...] EDT 10/08/2024 1:53 AM EDT Comment:F Bisi Hernandze DO BODY FLUIDS AND STOOLS ORDERABLE S Final Result [facility] [address] [place] [address], [facility] * Urine Drug Confirmation (10/07/2024 10:50 PM EDT) Only the most recent of2 resultswithin the time period is included. BARBITURATES NOT PRESENT 10/09/2024 1:33 PM EDT [facility] BENZODIAZEPINES PRESENT 1:33 PM EDT [facility] Nordiazepam 3 ng/mL 10/09/2024 1:33 PM EDT [facility] Temazepam 6 ng/mL 10/09/2024 1:33 PM EDT [facility] CANNABINOIDS NOT PRESENT 10/09/2024 1:33 PM EDT [facility] BUSINESS SYSTEMS CONSULTANT STIMULANTS NOT PRESENT 1:33 PM EDT [facility] OPIOID ANALGESICS PRESENT 025 1:33 PM EDT [facility] Oxycodone 300 ng/mL 10/09/2024 1:33 PM EDT [facility] Oxymorphone 32 ng/mL 10/09/2024 1:33 PM EDT [facility] Tramadol >1000 ng/mL 10/09/2024 1:33 PM EDT [facility] OPIOID ANTAGONISTS NOT PRESENT 10/09 1:33 PM EDT [facility] SEDATIVES/MUSCLE RELAXANTS NOT PRESENT 10/09/2024 1:33 PM EDT [facility] TRICYCLIC ANTIDEPRESSANTS NOT PRESENT 10/09/2024 1:33 PM EDT [facility] Urine 10/07/2024 10:5 0 PM EDT 10/08/2024 3:00 AM EDT Gerri Peterson MD URINE ORDERABLES Final Result Performing Organization Address City/Va Hospital/[facility] Co de Phone Number [facility] [address] [facility] * Giardia Cryptosporidium Antigens (10/07/2024 10:50 PM EDT) Cryptosporidium Ag Negative Negative 2024 7:59 AM EDT [facility] Giardia Ag Negative Negative 10/08/2024 7:59 AM EDT [facility] Comment: Detection of Giardia and Cryptosporidium antigen is more sensitive and specific than microscopy. Because antigens are shed continuously, repeat testing is rarely warranted. Feces 10/07/2024 10:5 0 PM EDT 10/08/2024 1:53 AM EDT Comment:F us Bisi Hernandez DO MICROBIOLOGY - GENERAL ORDERABLE S Final Result Performing Organization Address City/Va Hospital/ZIP Co de Phone Number [facility] [address] [facility] * Comprehensive Drug Screen (10/07/2024 10:50 PM EDT) Only the most recent of2 resultswithin the time period is included. Creatinine, Ur CANCELED mg/dL 10/08/2024 7:09 AM EDT [facility] Comment:The released value 8 7.30 was canceled by YAQUELIN on 10/08/2024 07:09 BARBITURATES CANCELED [facility] Butalbital CANCELED [facility] Phenobarbital CANCELED [facility] Secobarbital CANCELED [facility] BENZODIAZEPINES CANCELED [facility] Alprazolam CANCELED [facility] Clonazepam CANCELED [facility] Diazepam CANCELED [facility] Alpha-Hydroxyalprazo mcknight CANCELED [facility] Lorazepam CANCELED [facility] Midazolam CANCELED [facility] Nordiazepam CANCELED [facility] Oxazepam CANCELED [facility] Temazepam CANCELED [facility] CANNABINOIDS CANCELED [facility] THC-COOH CANCELED [facility] BUSINESS SYSTEMS CONSULTANT STIMULANTS CANCELED [facility] Cocaine Metabolite(benzoylec gonine) CANCELED [facility] Amphetamine CANCELED [facility] Methamphetamine [facility]ELED [facility] MDA CANCELED [facility] MDEA CANCELED [facility] Phencyclindine (PCP) CANCELED [facility] OPIOID ANALGESICS CANCELED [facility] Heroin Metabolite(6-RAMONA) CANCELED [facility] Codeine CANCELED [facility] Morphine CANCELED [facility] Hydrocodone CANCELED [facility] Hydromorphone [facility]CELED [facility] Oxycodone CANCELED [facility] Oxymorphone CANCELED [facility] Meperidine CANCELED [facility] Normeperidine [facility]ELED [facility] Methadone CANCELED [facility] Methadone Metabolite (EDDP) CANCELED [facility] Tramadol CANCELED [facility] Fentanyl CANCELED [facility] Norfentanyl CANCELED [facility] Sufentanil CANCELED [facility] OPIOID ANTAGONISTS CANCELED [facility] Buprenorphine CANCELED [facility] Norbuprenorphine CANCELED [facility] Naltrexone CANCELED [facility] Naloxone CANCELED [facility] SEDATIVES/MUSCLE RELAXANTS CANCELED [facility] Carisoprodol CANCELED [facility] Meprobamate [facility] TRICYCLIC ANTIDEPRESSANTS CANCELED [facility] Amitriptyline [facility]ED [facility] Clomipramine [facility]ED [facility] Desipramine CAN[facility]ELED [facility] Doxepin CANCELED [facility] Imipramine CANCELED [facility] Nortriptyline [facility] Urine Creatinine CANCELED mg/dL [facility] Nitrite CANCELED [facility] Glutaraldehyde [facility]ELED [facility] pH CANCELED 10/08/2024 7:09 AM EDT [facility] Comment:The released value 5 .6 was canceled by YAQUELIN on 10/08/2024 07:09 Specific [place] CANCELED 10/09/19 7:09 AM EDT [facility] Comment:The released value 1 .009 was canceled by YAQUELIN on 10/08/2024 07:09 Bleach CANCELED [facility] Pyridinium Chlorochromate CANCELED [facility] Urine 10/07/2024 10:5 0 PM EDT 10/08/2024 2:07 AM EDT Narrative [facility] - 10/08/2024 7:09 AM EDT See accn [id number] Gerri Peterson MD URINE ORDERABLES Edited Result - Final [facility] [address] [place] [address], [facility] * (ABNORMAL) Urine Drug Screen Reflex to Confirmation (10/07/2024 10:50 PM EDT) Only the most recent of2 resultswithin the time period is included. Amphetamine, 500 ng/mL Cutoff Negative Negative 10/08/2024 3:00 AM EDT [facility] Barbiturates UR, 300 ng/mL Cutoff Negative Negative 10/08/2024 3:00 AM EDT [facility] Buprenorphine, 5 ng/mL Cutoff Negative Negative 10/08/2024 3:00 AM EDT [facility] Benzodiazepines UR, 300 ng/mL Cutoff Negative Negative 10/08/2024 3:00 AM EDT [facility] Cocaine UR, 300 ng/mL Cutoff Negative Negative 10/08/2024 3:00 AM EDT [facility] Methadone, UR, 300 ng/mL Cutoff Negative Negative 10/08/2024 3:00 AM EDT [facility] Opiates UR, 300 ng/mL Cutoff Negative Negative 10/08/2024 3:00 AM EDT [facility] Oxycodone, 100 ng/mL Cutoff Presumptive Positive(A) Negative 10/08/2024 3:00 AM EDT [facility] Tricyclic Antidepressants, 300 ng/mL Cutoff Negative Negative 10/08/2024 3:00 AM EDT [facility] Comment:This test has been d eveloped and its performance characteristics determined by [facility] which is certified under [...] Cutoff Negative Negative 10/08/2024 3:00 AM EDT [facility] Comment:This is a screening method only and may be associated with false positive and/or false negative results. Results are not definitive without additional confirmatory testing by mass spectrometry. Fentanyl, 2 ng/mL Cutoff Negative Negative 10/08/2024 3:00 AM EDT [facility] Comment:This test has been d eveloped and its performance characteristics determined by [facility] which is certified under [...] PM EDT 10/08/2024 2:08 AM EDT Narrative [facility] - 10/08/2024 3:00 AM EDT CONFIRMATION TO FOLLOW us Gerri Peterson MD URINE ORDERABLES Final Result [facility] [address] [place] [address], [facility] * Ova and Parasite Comprehensive w/ Giardia/Crypto (10/07/2024 10:50 PM EDT) Pathologist [facility] O & P Method: Concentration and Trichrome Stain [facility] Results No Amoeba, Ova, Or Parasites Seen. -- O and P examination of additional specimens is recommended only for symptomatic patients, immunosuppressed patients or those with an appropriate travel history. [facility] Feces FECES / Unknown 10/07/2024 1 0:50 PM EDT 10/08/2024 1:53 AM EDT Comment:F Bisi Hernandez DO MICROBIOLOGY - GENERAL ORDERABLE S Final Result Performing Organization Address [facility]/Va Hospital/[facility] Co de Phone Number [facility] [address] [facility] * Hepatitis A IgM (10/07/2024 6:38 PM EDT) Only the most recent of2 resultswithin the time period is included. Pathologist [facility] Hep A IgM Nonreactive Nonreactive 10/07/2024 7:46 PM EDT [facility] Serum 10/07/2024 6:38 PM EDT 10/07/2024 6:52 PM EDT Narrative [facility] - 10/07/2024 7:46 PM EDT IgM anti-HAV not detected. Does not exclude the possibility of exposure to or infection with HAV. Levels of IgM anti-HAV may be below the cut-off in early infection. Gerri Peterson MD LAB BLOOD ORDERABLES Final Resu lt [facility] [address] * Syphilis Screening ([place]) (10/07/2024 6:37 PM EDT) Pathologist [facility] Treponema Pallidum Negative Negative 10/07/2024 8:27 PM EDT [facility] Comment: No serological evidence of infection with Treponema pallidum (incubating or early primary syphilis cannot be excluded). Serum 10/07/2024 6:37 PM EDT 10/07/2024 6:50 PM EDT Gerri Peterson MD LAB BLOOD ORDERABLES Final Resu lt Performing Organization Address [facility] Co de Phone Number [facility] [address] [place] [address] * (ABNORMAL) CMV IgG Antibody (10/07/2024 6:37 PM EDT) CMV IgG Positive(A ) Negative 10/07/2024 8:26 PM EDT [facility] CMV IGG NUM 8.40(H) 0.00 - 0.59 U/mL 10/07/2024 8:26 PM EDT [facility] Serum 10/07/2024 6:37 PM EDT 10/07/2024 6:50 PM EDT Gerri Peterson MD LAB BLOOD ORDERABLES Final Resu lt Performing Organization Address [facility] Co de Phone Number [facility] [address] [place] [address]. [address] * (ABNORMAL) Alpha 1 Antitrypsin AAT Quant & Mutation (10/07/2024 6:37 PM EDT) A-1 Antitrypsin 99(L) 101 - 187 mg/dL 10/09/2024 4:28 AM EDT [facility] A-1 Antitrypsin Pheno Comment 10/10/2024 4:05 PM EDT [facility] Comment: A1A Phenotype is consistent with a heterozygous phenotype consisting of one M (normal) allele and one allele that cannot be identified at this time. The unknown allele is not consistent with Z (deficient), S (deficient), or F (deficient). MM Phenotype is considered to be normal , producing normal serum levels of svdho-5-affambwk inhibitor and not associated with clinical disease. [...] 6:37 PM EDT 10/10/2024 4:08 PM EDT [facility] - 10/10/2024 4:08 PM EDT PERFORMED AT: [address] [id number] FUNCTIONAL SKILLS TUTOR: Bassam Khalil, PhD PHONE: [phone] PERFORMED AT: [employer] [id number] FUNCTIONAL SKILLS TUTOR: Mandy Abdul MD PHONE: [phone] Gerri Peterson MD LAB BLOOD ORDERABLES Final Resu lt Performing Organization Address City/State/[facility] Co de Phone Number [facility] [address] * Strongyloides Ab (10/07/2024 6:37 PM EDT) Strongyloides Ab Negative Negative 10/11/19 11:51 AM EDT [facility] Serum 10/07/2024 6:37 PM EDT 10/10/2024 12:07 PM EDT Narrative [facility] - 10/10/2024 12:07 PM EDT PERFORMED AT: [address] [id number] FUNCTIONAL SKILLS TUTOR: Mandy Abdul MD PHONE: [phone] Gerri Peterson MD LAB BLOOD ORDERABLES Final Resu lt [facility] [address] [facility]. [address] * Ethanol, Serum (10/07/2024 6:37 PM EDT) Only the most recent of2 resultswithin the time period is included. Pathologist [facility] Ethanol <10 0 - 10 mg/dL 10/07/2024 8:36 PM EDT [facility] Serum 10/07/2024 6:37 PM EDT 10/07/2024 6:50 PM EDT Gerri Peterson MD LAB BLOOD ORDERABLES Final Resu lt Performing Organization Address [facility] Co de Phone Number [facility] [address] [facility]. [address] * Katie-Watkins virus early antigen antibody, IgG (10/07/2024 6:37 PM EDT) [facility] EBV Early Antigen Ab, IgG <9.0 0.0 - 8.9 U/mL 10/09/2024 2:16 PM EDT [facility] Comment: Negative < 9.0 Equivocal 9.0 - 10.9 Positive >10.9 Serum Frozen 10/07/2024 6:37 PM EDT 10/09/2024 3:07 PM EDT Narrative [facility] - 10/09/2024 3:07 PM EDT PERFORMED AT: [employer] [id number] FUNCTIONAL SKILLS TUTOR: Bassam Khalil, PhD PHONE: [phone] Gerri Peterson MD LAB BLOOD ORDERABLES Final Resu lt Performing Organization Address City/[facility] Co de Phone Number [facility] [address] [facility] * (ABNORMAL) Varicella zoster antibody, IgG (10/07/2024 6:37 PM EDT) Pathologist [facility] Varicella IgG Positive( A) Negative S/CO 10/07/2024 8:34 PM EDT [facility] Comment:Result indicates the presence of detectable VZV IgG antibodies. A positive result is generally indicative of exposure to the pathogen or administration of specific immunoglobulins, but it is no indication of active infection or stage of disease. This test is not approved for determining vaccine-induced immunity to varicella zoster virus. VZV NUM 6.76(H) 0.00 - 0.99 S/CO 10/07/2024 8:34 PM EDT [facility] Serum 10/07/2024 6:37 PM EDT 10/07/2024 6:50 PM EDT Result [facility] Gerri Peterson MD LAB BLOOD ORDERABLES Final Resu lt Performing Organization Address City/[facility] Hospital/ZIP Co de Phone Number [facility] [address] [place] [address]. [address] * TSH (Thyroid Stimulating Hormone) (10/07/2024 6:37 PM EDT) TSH 0.81 0.45 - 4.12 uIU/mL 10/07/2024 8:17 PM EDT [facility] Serum 10/07/2024 6:37 PM EDT 10/07/2024 6:50 PM EDT Result [facility] Gerri Peterson MD LAB BLOOD ORDERABLES Final Resu lt Performing Organization Address [facility]/ZIP Co de Phone Number [facility] [address] [place] [address]. [address] * IgA (10/07/2024 6:37 PM EDT) IgA 227.0 70.0 - 400.0 mg/dL 10/08/2024 11:07 AM EDT [facility] Comment:Please interpret the se findings in conjunction with clinical findings, protein electrophoresis, and immunotyping/immunofixation results. Serum 10/07/2024 6:37 PM EDT 10/07/2024 6:50 PM EDT Gerri Peterson MD LAB BLOOD ORDERABLES Final Resu lt [facility] [address] [place] [address], [facility] * (ABNORMAL) Lipid Profile (10/07/2024 6:37 PM EDT) Non-HDL Cholesterol, Calculated See Note 0 - 129 mg/dL 10/07/2024 7:42 PM EDT [facility] Comment: Desirable: < 130 mg/dL Above Desirable: 130-159 mg/dL Borderline High: 160-189 mg/dL High: 190-219 mg/dL Very High: > 219 mg/dL Unable to calculate result either because contributing result(s) are outside of reportable range or are not available. Cholesterol, Total <25 0 - 200 mg/dL 10/07/2024 7:42 PM EDT [facility] Triglycerides 30 10 - 149 mg/dL 10/07/2024 7:42 PM EDT [facility] HDL 4(L) 60 - 92 mg/dL 10/07/2024 7:42 PM EDT [facility] Comment: LIPID PROFILE INTERPRETATION CHOLESTEROL,TOTAL(mg/dL) [...] Cholesterol See Note mg/dL 7:42 PM EDT [facility] Comment:Unable to calculate result either because contributing result(s) are outside of reportable range or are not available. Plasma 10/07/2024 6:37 PM EDT 10/07/2024 7:06 PM EDT Narrative [facility] - 10/07/2024 7:42 PM EDT LDL cholesterol calculated using the Friedewald equation. Gerri Peterson MD LAB BLOOD ORDERABLES Final Resu lt [facility] [address] [place] [address], [facility] * X-ray Mandible minimum [...] EXAM: US ABDOMEN COMPLETE EXAM: US DUPLEX [id number] COMPLETE INDICATION: elevated bilirubin COMPARISON: Ultrasound and [...] EXAM: US ABDOMEN COMPLETE EXAM: US DUPLEX [id number] COMPLETE INDICATION: elevated bilirubin COMPARISON: Ultrasound and [...] EDT us Bisi Hernandez DO [facility] ORDERABLES Final Result * AFP Tumor Marker (10/07/2024 6:00 AM EDT) Only the most recent of3 resultswithin the time period is included. AFP-Tumor Marker 2.0 0.0 - 9.0 ng/mL 10/07/2024 7:11 AM EDT [facility] Serum 10/07/2024 6:00 AM EDT 10/07/2024 6:39 AM EDT Narrative [facility] - 10/07/2024 7:11 AM EDT The testing method for AFP is a chemiluminescent immunoassay manufactured by [employer] Concentrations of AFP obtained by different assay methods or kits may vary and cannot be used interchangeably. AFP results cannot be interpreted as absolute evidence of the presence or absence of malignant disease. Ni Rivera MD LAB BLOOD ORDERABLES Final Resul t Performing Organization Address [facility] Co de Phone Number [facility] [address] [facility] * Osmolality (10/06/2024 2:50 PM EDT) [facility] Osmolality, Measured 304 278 - 305 mOsm/kg 10/06/2024 3:49 PM EDT [facility] Serum 10/06/2024 2:50 PM EDT 10/06/2024 2:56 PM EDT Jani Vanegas MD LAB BLOOD ORDERABLES Final Resul t Performing Organization Address [facility] de Phone Number [facility] [address] [facility] * CT Head WO contrast (10/06/2024 [...] of2 resultswithin the time period is included. Sodium, Ur <10 mmol/L 10/06/2024 1:56 PM EDT [facility] Comment:Reference range not established for this test. Urine 10/06/2024 1:25 PM EDT 10/06/2024 1:32 PM EDT us Jani Vanegas MD URINE ORDERABLES Final Result [facility] [address] [place] [id number], [facility] * Potassium, urine, random (10/06/2024 1:25 PM EDT) Only the most recent of2 resultswithin the time period is included. Potassium Urine Random 50.0 mmol/L 10/06/2024 1:56 PM EDT [facility] Comment:Reference range not established for this test. Urine 10/06/2024 1:25 PM EDT 10/06/2024 1:32 PM EDT us Jani Vanegas MD URINE ORDERABLES Final Result Performing Organization Address [facility] Co de Phone Number [facility] [address] [facility] * Osmolality, Urine (10/06/2024 1:25 PM EDT) Osmolality, Ur 386 50 - 1,200 mOsm/kg 10/06/2024 1:55 PM EDT [facility] Urine 10/06/2024 1:25 PM EDT 10/06/2024 1:32 PM EDT us Jani Vanegas MD URINE ORDERABLES Final Result Performing Organization Address [facility] de Phone Number [facility] [address] [facility] * Chloride, urine, random (10/06/2024 1:25 PM EDT) Only the most recent of2 resultswithin the time period is included. Chloride, Ur <15 mmol/L 10/06/2024 1:56 PM EDT [facility] Comment:Reference range not established for this test. Urine 10/06/2024 1:25 PM EDT 10/06/2024 1:32 PM EDT us Jani Vanegas MD URINE ORDERABLES Final Result Performing Organization Address [facility] Co de Phone Number [facility] [address] [facility] * (ABNORMAL) Salicylate Level (10/06/2024 4:01 AM EDT) Salicylate Lvl <3(L) 10 - 30 mg/dL 10/06/2024 4:58 AM EDT [facility] Serum 10/06/2024 4:01 AM EDT 10/06/2024 4:22 AM EDT Bisi Hernandez DO LAB BLOOD ORDERABLES Final Resul t [facility] [address] [place] [address], [facility] * Upper Respiratory Viral/Bacterial Panel-CARBON BLOCKS PRESS OPERATOR Only (10/06/2024 3:12 AM EDT) [facility] Adenovirus Not Detected Not Detected 10/06/2024 11:38 PM EDT [facility] Coronavirus (229E,HKU1,NL63,OC 43) Not Detected Not Detected 10/06/2024 11:38 PM EDT [facility] SARS-CoV-2 Not Detected Not Detected 10/06/2024 11:38 PM EDT [facility] Human Metapneumovirus Not Detected Not Detected 10/06/2024 11:38 PM EDT [facility] Human Rhinovirus/Enterov irus Not Detected Not Detected 10/06/2024 11:38 PM EDT [facility] Influenza A Not Detected Not Detected 10/06/2024 11:38 PM EDT [facility] Influenza A H1 Not Detected Not Detected 10/06/2024 11:38 PM EDT [facility] Influenza A/H1-2009 Not Detected Not Detected 10/06/2024 11:38 PM EDT [facility] Influenza A H3 Not Detected Not Detected 10/06/2024 11:38 PM EDT [facility] Influenza B Not Detected Not Detected 10/06/2024 11:38 PM EDT [facility] Parainfluenza 1 Not Detected Not Detected 10/06/2024 11:38 PM EDT [facility] Parainfluenza 2 Not Detected Not Detected 10/06/2024 11:38 PM EDT [facility] Parainfluenza 3 Not Detected Not Detected 10/06/2024 11:38 PM EDT [facility] Parainfluenza 4 Not Detected Not Detected 10/06/2024 11:38 PM EDT [facility] Resp. Syncycial Virus A Not Detected Not Detected 10/06/2024 11:38 PM EDT [facility] Resp. Syncycial Virus B Not Detected Not Detected 10/06/2024 11:38 PM EDT [facility] Chlamydia pneumoniae Not Detected Not Detected 10/06/2024 11:38 PM EDT [facility] Mycoplasma pneumoniae Not Detected Not Detected 10/06/2024 11:38 PM EDT [facility] Comment: The Respiratory Viral-Bacterial Panel [...] Test results have been sent to the [facility] in accordance with state requirements. For a fact sheet for healthcare providers, see https://www.fda.gov/media/047537/download. For a fact sheet for patients, see https://www.fda.gov/media/402885/download. Nasopharyngeal Swab NASOPHARYNGEAL SWAB / Unknown 10/06/2024 3:12 AM EDT 10/06/2024 5:41 PM EDT Comment:CAR[employer] PRESS OPERATOR us Bisi Hernandez DO BODY FLUIDS AND STOOLS ORDERABLE S Final Result [facility] [address] * Thyroid Function [place] (10/06/2024 1:04 AM EDT) TSH 0.84 0.45 - 4.12 uIU/mL 10/06/2024 2:20 AM EDT [facility] Serum 10/06/2024 1:04 AM EDT 10/06/2024 1:39 AM EDT [facility] BLOOD ORDERABLES Final Resul t [facility] [address]as [facility]. [address] * #2 Blood culture-Peripheral site 2 (10/06/2024 1:04 AM EDT) Only the most recent of2 resultswithin the time period is included. Culture Result No Growth After 5 Days [facility] Blood BLOOD SPECIMEN / Unknown 10/06/2024 1:04 AM EDT 10/06/2024 4:57 AM EDT Narrative [facility] - 10/11/2024 5:05 AM EDT Suboptimal volume of blood received. Interpret results with caution. Football Meisterana maría DO MICROBIOLOGY - GENERAL ORDERABLE S Final Result [facility] [address] [facility]. [address] * (ABNORMAL) Acetaminophen Level (10/06/2024 1:04 AM EDT) Acetaminophen Level <10(L) 10 - 30 ug/mL 10/06/2024 2:08 AM EDT [facility] Serum 10/06/2024 1:04 AM EDT 10/06/2024 1:30 AM EDT [facility] BLOOD ORDERABLES Final Resul t [facility] [address] [place] [address], [facility] * Renal Function Panel, [...] 3.4(A) 3.5 - 5.0 g/dL Blood Result [facility] Gerri Peterson MD LAB BLOOD [...] marked LLQ . Under sterileconditions, 5 Fr/7cm Allyes Advertisement [employer] catheter was inserted in a LLQ site [...] Positive( A) Negative 09/09/2024 1:20 PM EDT [facility] Comment:Positive indicates t oxigenic C. difficile was detected in the sample. Negative indicates that toxigenic C. difficile was not detected above the limit of the detection of the assay. The test methodology is a FDA approved DNA amplification assay. Stool, Liquid FECES / Unknown 09/09/2024 4:58 AM EDT 09/09/2024 6:44 AM EDT Comment:F Result [facility] Kathie Bauer MD BODY FLUIDS AND STOOLS ORDERA BLES Final Result [facility] [address] [place] [address], [facility] * Clostridium Difficile Toxin [...] ORDERA BLES Final Result Performing Organization Address City/[facility] Hospital/ZIP Co de Phone Number [facility] [address] [facility] * Phosphorus, AM (09/05/2024 7:24 AM EDT) Only the most recent of2 resultswithin the time period is included. Phosphorus 2.1 2.1 - 4.7 mg/dL 09/05/2024 8:25 AM EDT [facility] Plasma 09/05/2024 7:24 AM EDT 09/05/2024 7:38 AM EDT Kiet Ramirez MD LAB BLOOD ORDERABLES Denisse l Result Performing Organization Address [facility] Co de Phone Number [facility] [address] * (ABNORMAL) Basic Metabolic panel, AM (09/05/2024 7:24 AM EDT) Only the most recent of4 resultswithin the time period is included. Sodium 134 133 - 146 mmol/L 09/05/2024 8:25 AM EDT [facility] Potassium 3.6 3.5 - 5.3 mmol/L 09/05/2024 8:25 AM EDT [facility] Chloride 107 98 - 110 mmol/L 09/05/2024 8:25 AM EDT [facility] CO2 19(L) 21 - 33 mmol/L 09/05/2024 8:25 AM EDT [facility] Anion Gap 8 3 - 16 mmol/L 09/05/2024 8:25 AM EDT [facility] BUN 42(H) 7 - 25 mg/dL 09/05/2024 8:25 AM EDT [facility] Creatinine 2.92(H) 0.60 - 1.30 mg/dL 09/05/2024 8:25 AM EDT [facility] Glucose 108(H) 70 - 100 mg/dL 09/05/2024 8:25 AM EDT [facility] Calcium 8.6 8.6 - 10.3 mg/dL 09/05/2024 8:25 AM EDT [facility] Osmolality, Calculated 289 278 - 305 mOsm/kg 09/05/2024 8:25 AM EDT [facility] EGFR 27 09/05/2024 8:25 AM EDT [facility] Comment:As of 2021, the estimated [...] MD LAB BLOOD ORDERABLES Denisse valle Result [facility] [address] * Fluid Creatinine (09/04/2024 11:01 AM EDT) Creat, Fluid 3.17 mg/dL 09/04/2024 6:15 PM EDT [facility] Comment:Reference range not established for this test. Abdominal Fluid ABDOMEN / Unknown 025 11:01 AM EDT 09/04/2024 5:25 PM EDT Narrative [facility] - 09/04/2024 6:15 PM EDT This assay has been modified from the varying exceptionalities teacher's specifications and has been validated with performance characteristics determined by [facility] in accordance with federal [...] OR DERABLES Final Result Performing Organization Address [facility] de Phone Number [facility] [address] * Protein, Body fluid (09/04/2024 11:01 AM EDT) Protein, Fluid <3.0 g/dL 09/04/2024 6:15 PM EDT [facility] Comment:Reference range not established for this test. Ascitic Fluid ABDOMEN / Unknown 11:01 AM EDT 09/04/2024 5:25 PM EDT Narrative [facility] - 09/04/2024 6:15 PM EDT This assay has been modified from the varying exceptionalities teacher's specifications and has been validated with performance characteristics determined by [facility] in accordance with federal [...] OR DERABLES Final Result Performing Organization Address [facility] de Phone Number [facility] [address] [facility] * Albumin, fluid (09/04/2024 11:01 AM EDT) Albumin, Fluid <1.5 g/dL 09/04/2024 6:15 PM EDT [facility] Comment:Reference range not established for this test. Abdominal Fluid ABDOMEN / Unknown 025 11:01 AM EDT 09/04/2024 5:25 PM EDT Narrative [facility] - 09/04/2024 6:15 PM EDT This assay has been modified from the varying exceptionalities teacher's specifications and has been validated with performance characteristics determined by [facility] in accordance with federal [...] OR DERABLES Final Result Performing Organization Address City/[facility] Hospital/ZIP Co de Phone Number [facility] [address] [facility] * Lipase (09/04/2024 5:22 AM EDT) Lipase 40 4 - 82 U/L 09/04/2024 11:41 AM EDT [facility] Plasma 09/04/2024 5:22 AM EDT 09/04/2024 11:23 AM EDT Kiet Ramirez MD LAB BLOOD ORDERABLES Denisse l Result Performing Organization Address [facility] Co de Phone Number [facility] [address] 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, VRE- urine 10/31/202410/13 Insurance [facility] GLOBAL [facility] Member Subscriber Plan / Payer (Ef fective 2024-Present) Name:Blair Anderson Relation to Subscriber:Self Name:JustinLanke Payer ID:[id number] Group ID:Not on file Type:Transplant Address: [address] [place] [address] Advance Directives For more information, please contact: [phone] * Full Code (Latest Code Status on [...] 9:55 PM 08/19/2024 4:56 PM Care Teams Reactor Kettle Operator Relationship Specialty Start Date End Date Enedina Mcguire NP [address] [place] [address] PCP - General Internal Medicine 10/05/24 Maureen Pantoja, ЮЛИЯ Txp Post Coordinator Transplant Hepatology 10/28/24
--- OUTSIDE RECORDS SUMMARY | 2024-12-04 07:57 | XMS_ITS | Encounter Summary ---
Author Organization [facility] Address [address] [place] [address] Care Team Providers Care Manufacturers Service Representative Name Role Phone Enedina Mcguire NP Primary Care Provider [phone] Source Comments This information has been disclosed [...] release of HIV test results or diagnoses. [id number] Health Encounter Details Date Type Department Care Team (Late st Contact Info) Description 10/14/2024 Chart Note [facility] Kidney Transplant at [address] [place] [phone] Dean Robles [facility] [id number] Social History Tobacco Use Types Packs/Day Years Used Date Smoking Tobacco: Former Cigarettes Smokeless Tobacco: Current Alcohol Use Standard Drinks/Week Comments Yes 0 (1 standard drink = 0.6 oz pure alcohol) History of alcohol abuse, reports no use in 3 week- typically endorses use as 4 glasses of wine a days Utilities Answer Date Recorded In the past 12 months has [employer] oil, or water [employer] threatened to shut off services in your [...] Guillen 10/14/2024 9:49 AM EDT Dean berman [facility] [address] Case opened CM Elle ph [phone] Fx [phone] Liver requested urgent review for slk Approved by [facility] letter to files documented in [...] documented as of this encounter Care Teams Manufacturers Service Representative Relationship Specialty Start Date End Date Enedina Mcguire NP [address] [place] [address] PCP - General Internal Medicine 10/05/24 documented as of this encounter
--- OUTSIDE RECORDS SUMMARY | 2024-12-04 07:58 | XMS_ITS | Encounter Summary ---
Author Organization [facility] Address [address] [place] [address] Care Team Providers Care Slab Grinder Name Role Phone Enedina Mcguire NP Primary Care Provider [phone] Source Comments This information has been disclosed [...] release of HIV test results or diagnoses. [id number] Health Encounter Details Date Type Department Care Team (Late st Contact Info) Description 10/07/2024 Chart Note [facility] Liver Transplant at [address] [place] [phone] Alexandro Sams, RN Spoke with Julien Anderson [...] Recorded In the past 12 months has [employer], gas, oil, or water [employer] threatened to shut off services in your [...] documented as of this encounter Care Teams Slab Grinder Relationship Specialty Start Date End Date Enedina Mcguire NP [address] [place] [address] PCP - General Internal Medicine 10/05/24 documented as of this encounter
--- OUTSIDE RECORDS SUMMARY | 2024-12-04 07:58 | XMS_ITS | Encounter Summary ---
Author Organization [facility] Address [address] [place] [address] Care Team Providers Care Strategy Intern Name Role Phone Enedina Mcguire NP Primary Care Provider [phone] Source Comments This information has been disclosed [...] release of HIV test results or diagnoses. [id number] Encounter Details Date Type Department Care Team (Late st Contact Info) Description 10/07/2024 Chart Note [facility] Kidney Transplant at [address] [place] [phone] Chey Nicole MA This MA received new [...] In the past 12 months has e [employer], gas, oil, or water [employer] threatened to shut off services in your [...] PT. Raul NICHOLAS once financially cleared. An [employer] fax was sent to [place] and or [...] documented as of this encounter Care Teams Strategy Intern Relationship Specialty Start Date End Date Enedina Mcguire NP [address] [place] [address] PCP - General Internal Medicine 10/05/24 documented as of this encounter
--- OUTSIDE RECORDS SUMMARY | 2024-12-04 07:58 | XMS_ITS | Encounter Summary ---
Author Organization [facility] Address [address] [place] [address] Care Team Providers Care Ordnance Truck Installation Supervisor Name Role Phone Enedina Mcguire NP Primary Care Provider [phone] Source Comments This information has been disclosed [...] release of HIV test results or diagnoses. [id number] Encounter Details Date Type Department Care [...] Recorded In the past 12 months has [employer], oil, or water [employer] threatened to shut off services in your [...] documented as of this encounter Care Teams Ordnance Truck Installation Supervisor Relationship Specialty Start Date End Date Enedina Mcguire NP [address] [place] [address] PCP - General Internal Medicine 10/05/24 documented as of this encounter
--- OUTSIDE RECORDS SUMMARY | 2024-12-04 07:58 | XMS_ITS | Encounter Summary ---
Author Organization [facility] Address [address] [place] [address] Care Team Providers Care Ladderman Name Role Phone Enedina Mcguire NP Primary Care Provider [phone] Source Comments This information has been disclosed [...] release of HIV test results or diagnoses. [id number] Encounter Details Date Type Department Care Team (Late st Contact Info) Description 10/07/2024 Chart Note [facility] Kidney Transplant at [address] [place] [phone] Anny Cote RN Received notice of [...] months has [employer], gas, oil, or water [employer] threatened to shut off services in your [...] documented as of this encounter Care Teams Ladderman Relationship Specialty Start Date End Date Enedina Mcguire NP [address] [place] [address] PCP - General Internal Medicine 10/05/24 documented as of this encounter
--- OUTSIDE RECORDS SUMMARY | 2024-12-04 07:58 | XMS_ITS | Encounter Summary ---
Author Organization [facility] Address [facility] [place] [address] Care Team Providers Care Creative Consultant Name Role Phone Enedina Mcguire NP Primary Care Provider [phone] Source Comments This information has been disclosed [...] release of HIV test results or diagnoses. [id number] Reason for Visit * Reason Comments After Hours Call Encounter Details Date Type Department Care Team ([facility] Contact Info) Description 10/05/2024 Telephone [facility] [address] [place] [address] Unknown, Attending Provider After [...] Recorded In the past 12 months has [employer], gas, oil, or water [employer] threatened to shut off services in your [...] local ER w/ plans to transfer to [facility] if higher level of care required. [...] Relationship of Caller to Patient and Callback: [phone] Patient of: DR. LINARES Nature of Call: STATES PT IS SHOWING SIGNS OF CONFUSION. PLEASE ADVISE. Second Rigger Provider Contacted: DR. RETANA Time and Method of Contact: PAGE 10:23AM Advise Caller: If provider does not call back within 30 minutes, please call us back. ROUTE TELEPHONE NOTE - Follow Qgenda and/or Route Directly to Provider. COPY this note into [employer] Environmental Teams chat. documented in this encounter Plan of Treatment Not on file documented as of this encounter Visit Diagnoses Not on filedocumented in this encounter Additional Health Concerns Infection Onset Date Last Indicated Resolved Time C. difficile 09/09/2024 09/09/2024 10/27/2024 8:30 AM EDT Assessment Noted Time PHQ-9 Depression Total Score: 17 025 11:00 AM EDT documented as of this encounter Care Teams Creative Consultant Relationship Specialty Start Date End Date Enedina Mcguire NP [address] [place] [address] PCP - General Internal Medicine 10/05/24 documented as of this encounter
--- OUTSIDE RECORDS SUMMARY | 2024-12-04 07:58 | XMS_ITS | Encounter Summary ---
Author Organization [facility] Address [address] [place] [address] Care Team Providers Care Acting Professor Name Role Phone Enedina Mcguire NP Primary Care Provider [phone] Source Comments This information has been disclosed [...] release of HIV test results or diagnoses. [id number] Health Encounter Details Date Type Department Care Team (Late st Contact Info) Description 10/09/2024 Chart Note [facility] Kidney Transplant at [address] [place] [phone] Dean Robles [facility] [address] Social History Tobacco Use Types Packs/Day Years Used Date Smoking Tobacco: Former Cigarettes Smokeless Tobacco: Current Alcohol Use Standard Drinks/Week Comments Yes 0 (1 standard drink = 0.6 oz pure alcohol) History of alcohol abuse, reports no use in 3 week- typically endorses use as 4 glasses of wine a days Utilities Answer Date Recorded In the past 12 months has [employer], [employer], oil, or water [employer] threatened to shut off services in your [...] 10:37 AM EDT Dean berman [facility] [phone] Called Cammie Wing [phone] Advised of brandon martínez she was aware [...] as of this encounter Care Teams Acting Professor Relationship Specialty Start Date End Date Enedina Mcguire NP [address] [place] [address] PCP - General Internal Medicine 10/05/24 documented as of this encounter
--- OUTSIDE RECORDS SUMMARY | 2024-12-04 07:59 | XMS_ITS | Encounter Summary ---
Author Organization [facility] Address [address] [place] [address] Care Team Providers Care Chemistry Lab Instructor Name Role Phone Enedina Mcguire NP Primary Care Provider [phone] Source Comments This information has been disclosed [...] release of HIV test results or diagnoses. [id number] Health Encounter Details Date Type Department Care Team (Late st Contact Info) Description 10/09/2024 Chart Note [facility] Kidney Transplant at [address] [place] [phone] Dean Robles [facility] [phone] call from Elle Lovering [facility] fx [phone] Social History Tobacco Use Types Packs/Day Years Used Date Smoking Tobacco: Former Cigarettes Smokeless Tobacco: Current Alcohol Use Standard Drinks/Week Comments Yes 0 (1 standard drink = 0.6 oz pure alcohol) History of alcohol abuse, reports no use in 3 week- typically endorses use as 4 glasses of wine a days Utilities Answer Date Recorded In the past 12 months has e [employer], gas, oil, or water company threatened to [...] 11:57 AM EDT Dean berman [facility] [phone] call from Elle the [facility] fx [phone] Set her all clinical Rquesting a urgent [...] documented as of this encounter Care Teams Chemistry Lab Instructor Relationship Specialty Start Date End Date Enedina Mcguire NP [address] [place] [address] PCP - General Internal Medicine 10/05/24 documented as of this encounter
--- OUTSIDE RECORDS SUMMARY | 2024-12-04 07:59 | XMS_ITS | Encounter Summary ---
Author Organization [facility] Address [address] [place] [address] Care Team Providers Care Manager Market Research Name Role Phone Enedina Mcguire NP Primary Care Provider [phone] Source Comments This information has been disclosed [...] release of HIV test results or diagnoses. [id number] Health Encounter Details Date Type Department Care Team (Late st Contact Info) Description 10/07/2024 Chart Note [facility] Kidney Transplant at [address] [phone] Anny Cote RN Simultaneous Liver-Kidney Transplant Referral [...] Recorded In the past 12 months has [employer], gas, oil, or water [employer] threatened to shut off services in your [...] Dialysis Unit: (Not currently on dialysis) Outside medical territory manager: Dr. Curran, Yovanny Nicholson MD Routed to [...] as of this encounter Care Teams Manager Market Research Relationship Specialty Start Date End Date Enedina Mcguire NP [address] [place] [address] PCP - General Internal Medicine 10/05/24 documented as of this encounter
--- OUTSIDE RECORDS SUMMARY | 2024-12-04 07:59 | XMS_ITS | Encounter Summary ---
Author Organization [facility] Address [address] [place] [address] Care Team Providers Care Offshore Diver Name Role Phone Enedina Mcguire NP Primary Care Provider [phone] Source Comments This information has been disclosed [...] release of HIV test results or diagnoses. [id number] Encounter Details Date Type Department Care Team (Late st Contact Info) Description 10/09/2024 Social Work [facility] Liver Transplant at [address] [phone] Kaylin Willard MSW Social History Tobacco Use [...] Recorded In the past 12 months has [employer], gas, oil, or water [employer] threatened to shut off services in your [...] Liver Transplant Patient has been referred to [facility] for liver transplant evaluation. Patient was evaluated by transplant certified social workers in health care on 09/25/2024 and it was determined that patient will need to complete 12 weeks of CD treatment. Patient is engaged in CD treatment with: [facility] [phone] SW met with patient and spouse at [...] during hospitalization pending mental status. NUBIA Barros, FILTER CLOTH MAKER documented in this encounter Plan of Treatment Not on file documented as of this encounter Visit Diagnoses Not on filedocumented in this encounter Additional Health Concerns Infection Onset Date Last Indicated Resolved Time C. difficile 09/09/2024 09/09/2024 10/27/2024 8:30 AM EDT Assessment Noted Time PHQ-9 Depression Total Score: 17 09/29/2 025 11:00 AM EDT documented as of this encounter Care Teams Offshore Diver Relationship Specialty Start Date End Date Enedina Mcguire NP [address] [place] [address] PCP - General Internal Medicine 10/05/24 documented as of this encounter
--- OUTSIDE RECORDS SUMMARY | 2024-12-04 08:00 | XMS_ITS | Encounter Summary ---
Author Organization [employer] ([place], [place], [place], [place]) Address [address] [place] [address] Care Team Providers Care Completions Manager Name Role Phone Unavailable Primary Care Provider Unavaillia e Encounter Details Date Type Department Care Team (Late st Contact Info) Description 06/03/2018 Transcribed Document [facility] Family Medicine [address] [place] [address] ProviderEbenezer MD [address] [place] [place], [place] [id number] Social History Tobacco Use Types Packs/Day Years [...] - Historical ProviderMD - 06/03/2018 1:05 PM TOWEL WEAVER Patient: JULIEN ZELAYA Age: 33 years [...] s/p picking up a glass that shattered relief captain. lacerations noted with bleeding controlled . [...] EST Height Source Stated Height Entry Format [place] Height/Length, BELIZEAN (ft) 6 ft Height/Length BELIZEAN 4 Inch CLINICALHEIGHT 193.04 cm [place] Body Weight 85.74 kg Weight Source, ED Standing scale Weight Entry Format [place] Weight Wol[place] lb 265 lb CLINICALWEIGHT 120.45 kg Body [...] 14:22 EST, Discharge to: Home. Prescriptions: Prescription Triple Valve Mechanic Pharmacy: Keflex 500 mg oral capsule (Prescribe): [...]
--- OUTSIDE RECORDS SUMMARY | 2024-12-04 08:00 | XMS_ITS ---
Author Organization [facility] Address [address] [place] [address] Care Team Providers Care Metal Gauge Maker Name Role Phone Enedina Mcguire NP Primary Care Provider [phone] Maureen Pantoja RN Unavailable Unavail able Transplant Episode Kidney Recipient [facility] ([place] [place]) [facility] Organ Received: Left Kidney Transplanted on 10/27/2024 Marked as Active Follow-up on 10/27/2024 Kidney CoordinatorJosr Weber RN Phone: N/A Fax: N/A Email: N/A [place] Organ Diagnosis Organ Primary Contributory Kidney Hepatorenal [...] N/A N/A Flaquito Mayen MD Txp Surgeon [phone] N/A Bruno Gonzalez MD Txp Superintendent Building [phone] N/A Yovanny Curran MD Referring Physician [phone] N/A Events Post-Transplant Pre-Transplant Admitted: 10/25/2024 Referred: 10/07/2024 Transplanted: 10/27/2024 Evaluation began: Discharged: 11/02/2024 Committee: 10/20/2024 Center waitlisted: 5
--- OUTSIDE RECORDS SUMMARY | 2024-12-04 08:00 | XMS_ITS | Encounter Summary ---
Author Organization [employer] ([place], [place], [place], [place]) Address [address] [place] [address] Care Team Providers Care Display Decorator Name Role Phone Unavailable Primary Care Provider Unavailabl e Encounter Details Date Type Department Care Team (Late st Contact Info) Description 06/03/2018 Transcribed Document [facility] Family Medicine [address] [place] [address] ProviderEbenezer MD [address] [place], [place] [id number] Social History Tobacco Use Types Packs/Day Years [...] - Historical ProviderMD - 06/03/2018 2:24 PM MARKET BASKET MAKER Electronically signed by Gabriela [facility] Conversion Clinical Trial Assistant Cerner at 08/29/2022 6:41 PM CDT documented in this encounter Plan of Treatment Not on file documented as of this encounter Visit Diagnoses Not on filedocumented in this encounter
--- OUTSIDE RECORDS SUMMARY | 2024-12-04 08:00 | XMS_ITS | Encounter Summary ---
Author Organization [facility] Address [address] [place] [address] Care Team Providers Care Materials Tech Name Role Phone Enedina Mcguire NP Primary Care Provider [phone] Maureen Pantoja RN Unavailable Unavail able Source [...] release of HIV test results or diagnoses. [id number] Health Encounter Details Date Type Department Care Team (Late st Contact Info) Description 11/18/2024 Chart Note [facility] Liver Transplant at [address] [place] [phone] Marlene Ro MA Social History Tobacco Use [...] Recorded In the past 12 months has [employer], gas, oil, or water [employer] threatened to shut off services in [...] w/o EGFR (11/13/2024 8:44 AM EDT) Pathologist [facility] Glucose 108 mg/dL BUN 25(A) 4 - [...] Blood Narrative Resulting Agency Comment [facility] us Historical Provider LAB BLOOD ORDERABLES Denisse l Result * Tacrolimus level (11/13/2024 8:44 AM EDT) Pathologist [facility] Tacrolimus Lvl 10.9 6 - 15 ng/mL Whole Blood Narrative Resulting Agency Comment [facility] Historical Provider LAB BLOOD ORDERABLES Denisse l Result * (ABNORMAL) CBC and differential (11/13/2024 8:44 AM EDT) Pathologist [facility] Hemoglobin 9.8(A) 13.5 - 17.5 g/dL Hematocrit [...] 5.7 10^3/mL Blood Narrative Resulting Agency Comment [facility] Historical Provider LAB BLOOD ORDERABLES Denisse l Result * (ABNORMAL) Hepatic Function Panel (11/13/2024 8:44 AM EDT) Bilirubin, Direct 0.6 Bilirubin, Indirect 0.2 Alkaline Phosphatase 137 U/L ALT 29 U/L AST 20 U/L Total Bilirubin 0.8 0.1 - 1.4 mg/dL Total Protein 5.8(A) 6.4 - 8.2 g/dL Plasma Narrative Resulting Agency Comment [facility] Historical Provider LAB BLOOD ORDERABLES Denisse l Result documented in this encounter Visit Diagnoses Not on filedocumented in this encounter Additional Health Concerns Infection Onset Date Last Indicated Resolved Time 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
--- OUTSIDE RECORDS SUMMARY | 2024-12-04 08:00 | XMS_ITS | Encounter Summary ---
Author Organization [employer] ([place], [place], [place], [place]) Address [address] [place] [address] Care Team Providers Care Trial Manager Name Role Phone Unavailable Primary Care Provider Carmen e Encounter Details Date Type Department Care Team (Late st Contact Info) Description 06/03/2018 Transcribed Document [facility] [place] [address] [place] [address] ProviderEbenezer MD [address] [place] [address] Social History Tobacco Use Types [...] - Historical ProviderMD - 06/03/2018 3:04 PM CLASSROOM INSTRUCTOR [address] [place] [address] Patient Information Name: JULIEN ZELAYA [...] [address] [place] [address] [place] [address] [employer] (1) Within 2 to 3 days Patient [...] off of the skin. General Instructions??? Take edwz-nqw-rqludbz and prescription medicines only as told by [...] 04/30/2006 Document Revised: 09/29/2016 Document Reviewed: 04/26/2015 [employer] Interactive Patient Education ? 2017 [employer] Allergies: No Known Medication Allergies Medication [...] verify that JULIEN ZELAYA was seen at [facility] Emergency Department on ,06/03/2018 15:04:17. This [...] Assistance with quitting is available by contacting 4-465-FNHC-NOW. This is a free resource providing counseling, [...] Electronic Communications Privacy Act 18 U.S.C. ???Sections 9323-1337,?? and contain information intended for the specified [...] sure to sign up for the [facility] patient portal, which gives you 04/12 access to your medical information ??? including these discharge instructions ??? using your computer, smartphone, or tablet. Just go to [employer] management to get started. Questions? Call . Acknowledgment [...]
--- OUTSIDE RECORDS SUMMARY | 2024-12-04 08:00 | XMS_ITS ---
Author Organization [facility] Address [address] [place] [address] Care Team Providers Care Personal Banking Assistant Name Role Phone Enedina Mcguire NP Primary Care Provider [phone] Maureen Pantoja RN Unavailable Unavail able Transplant Episode Liver Recipient [facility] ([place] [place]) [facility] Organ Received: Liver Transplanted on 10/26/2024 Marked as Active Follow-up on 10/26/2024 Liver CoordinatorMaureen Pantoja RN Phone: N/A Fax: N/A Email: N/A [place] Organ Diagnosis Organ Primary Contributory Liver Alcohol-Associated [...] N/A N/A Chris Orosco MD Referring Physician [phone] N/A Maureen Pantoja RN Txp Post Coordinator N/A N/A N/A NUBIA aBrros Txp Roofer Metal N/A N/A N/A Harvey Domínguez III, MD Txp Surgeon [phone] N/A Mary Butler RN Txp Pre Coordinator N/A N/A N/A Events Post-Transplant Pre-Transplant Admitted: 10/25/2024 Referred: 08/13/2024 Transplanted: 10/26/2024 Evaluation began: 5 Discharged: 11/02/2024 Committee: 10/14/2024 Center waitlisted: 5 Appointments (11/04/2024 - 01/04/2025) When With Visit Type Description 11/04/2024 Txp Jose Hanna Established Patient Kidney transplant recipient (Primary Dx); Diarrhea of presumed infectious origin; Hypomagnesemia; Hypervolemia, unspecified hypervolemia type; Liver transplant recipient ([facility]); Other hypervolemia; Hyperparathyroidism ([facility]); Nausea and vomiting, unspecified vomiting type 11/04/2024 Txp Ebony Watkins Established Patient Li jemma transplant recipient ([facility]) (Primary Dx); Alcoholic cirrhosis of liver with ascites ([facility]); Kidney transplant recipient; Acute kidney injury superimposed on CKD ([facility]); CKD (chronic kidney disease) stage 4, GFR 15-29 ml/min ([facility]); Immunosuppressive management encounter following liver transplant ([facility]); Abdominal pain, unspecified abdominal location 11/11/2024 Txp Kady De La Rosa Established Patient Encounter for therapeutic drug monitoring (Primary Dx); Abdominal pain, unspecified abdominal location 11/11/2024 Txp Lorrie Mascorro Established Patient Kid haylee replaced by transplant (Primary Dx); Hypervolemia associated with renal insufficiency 11/25/2024 Txp Lalit Oscar Established Patient E ncounter for therapeutic drug monitoring (Primary Dx); S/P liver transplant ([facility]); Hypomagnesemia; Kidney transplant recipient; Hypertension, unspecified type; Gastroesophageal reflux disease, unspecified whether esophagitis present; Abdominal pain, unspecified abdominal location 11/25/2024 TxLorrie Poe Established Patient NADIYA (acute kidney injury) ([facility]-H[facility]) (Primary Dx); Kidney replaced by transplant; Metabolic acidosis; Hypervolemia associated with renal insufficiency
--- OUTSIDE RECORDS SUMMARY | 2024-12-04 08:00 | XMS_ITS | Encounter Summary ---
Author Organization [employer] ([place], [place], [place], [place]) Address [address] [place] [address] Care Team Providers Care Workers Compensation Claims Examiner Name Role Phone Unavailable Primary Care Provider Unavailabl e Encounter Details Date Type Department Care Team (Late st Contact Info) Description 06/03/2018 Transcribed Document [facility] Family Medicine [address] [place] [address] ProviderEbenezer MD [address] [place] [address] Social History Tobacco Use Types [...] - Historical ProviderMD - 06/03/2018 12:08 PM FURNITURE MAKER ED Triage Entered On: 06/03/2018 12:17 EST Performed On: 06/03/2018 12:12 EST by KANU VELEZ RN ED Triage Across the Room Triage Date/Time : 06/03/2018 12:12 EST Chief Complaint : lacerations to rt index and left middle finger s/p picking up a glass that shattered bulk mail technician. lacerations noted with bleeding controlled KANU VELEZ RN - 06/03/2018 12:12 EST DCP GENERIC CODE Tracking Acuity : 3 - Urgent Tracking Group : [facility] ED [place] KANU VELEZ RN - 06/03/2018 [...] 12:17:41 EST) Problems(Active) HTN (hypertension) (SNOMED CT :1031064872 ) Name of Problem: HTN (hypertension) ; Recorder: KANU VELEZ RN; Confirmation: Confirmed ; Classification: Medical ; Code: [id number] ; Contributor System: ipsy ; Last Updated: 06/03/2018 12:14 EST ; Life Cycle Date: 06/03/2018 ; Life Cycle Status: Active ; Vocabulary: SNOMED CT Diagnoses(Active) Finger laceration Date: 06/03/2018 ; Diagnosis Type: Reason For Visit ; Confirmation: Complaint of ; Clinical Dx: Finger laceration ; Classification: Medical ; Clinical Service: Emergency medicine ; Code: PNED ; Probability: 0 ; Diagnosis Code: [id number] ED Height and Weight Height Source : Stated Height Entry Format : [place] Height, Feet : 6 ft(Converted to: 183 cm, 72 Inch) Height, Inches : 4 Inch(Converted to: 0 ft 4 Inch, 10.16 cm) Clinical Height : 193.04 cm Weight Source, ED : Standing scale Weight Entry Format : [place] Weight, Pounds : 265 lb Clinical Dosing Weight : 120.45 kg Body Surface Area (BSA) : 2.5 m2 Body Mass Index : 32.3 kg/m2 (HI) [place] Body Weight (IBW) : 85.74 kg KANU [...]
--- OUTSIDE RECORDS SUMMARY | 2024-12-04 08:00 | XMS_ITS | Encounter Summary ---
Author Organization [facility] Address [address] [place] [address] Care Team Providers Care Fine Arts Instructor Name Role Phone Enedina Mcguire NP Primary Care Provider + [phone] Maureen Pantoja RN Unavailable Unavail able Source [...] release of HIV test results or diagnoses. [id number] Reason for Visit * Reason Comments Results Encounter Details Date Type Department Care Team (Riky st Contact Info) Description 11/18/2024 Telephone [facility] Liver Transplant at [address] [address] Maureen Pantoja, RN Results Social [...] In the past 12 months has e [employer], gas, oil, or water [employer] threatened to shut off services in your [...] documented as of this encounter Care Teams Fine Arts Instructor Relationship Specialty Start Date End Date Enedina Mcguire NP [address] [place] [address] PCP - General Internal Medicine 10/05/24 Maureen Pantoja, RN Txp Post Coordinator Transplant Hepatology 10/28/24 documented as of this encounter
--- OUTSIDE RECORDS SUMMARY | 2024-12-04 08:00 | XMS_ITS | Encounter Summary ---
Author Organization [employer] ([place], [place], [place], [place]) Address [address] [place] [address] Care Team Providers Care Executive Advisor Name Role Phone Unavailable Primary Care Provider Unavailabl e Encounter Details Date Type Department Care Team (Late st Contact Info) Description 06/03/2018 Transcribed Document [facility] [place] [address] [place] [address] ProviderEbenezer MD [address] [place] [address] Social History Tobacco Use Types [...] - Historical ProviderMD - 06/03/2018 3:04 PM RADAR AIR TRAFFIC CONTROLLER [place] [address] [place] [address] PERSON INFORMATION Name JULIEN ZELAYA Age 33 Years 1985 Sex Male Language Citizen Of [place] PCP SALLY EVERETT (REF) T Marital Status Single Med Service Emergency Medicine Acct# Arrival 06/03/2018 12:08:00 Visit Reason Finger laceration; CUT FINGERS Acuity 3 - Urgent LOS 000 02:56 Depart Date: 06/03/18 03:04 PM Address: [address] [facility] [id number] Comment: PROVIDER INFORMATION Provider Role Assigned Unassigned Lizeth Almeida, CONTAINER WASHER Nurse 06/03/2018 12:39:09 DOMINIQUE BREWER PA-C ED [...] PURI [address] [place], [place] [id number] [employer] Within 2 to 3 days Comment: documented in this encounter Plan of Treatment Not on file documented as of this encounter Visit Diagnoses Not on filedocumented in this encounter
--- OUTSIDE RECORDS SUMMARY | 2024-12-04 08:00 | XMS_ITS | Encounter Summary ---
Author Organization [employer] ([place], [place], [place], [place]) Address [address] [place] [address] Care Team Providers Care Tag And Label Cutter Name Role Phone Unavailable Primary Care Provider Unavailabl e Encounter Details Date Type Department Care Team (Late st Contact Info) Description 06/03/2018 Transcribed Document [facility] Family Medicine [address] [place] [address] ProviderEbenezer MD [address] [place], [place] [id number] Social History Tobacco Use Types Packs/Day Years [...] - Historical ProviderMD - 06/03/2018 3:03 PM BELT PICKER ED Discharge Entered On: 06/03/2018 15:03 EST Performed On: 06/03/2018 15:03 EST by Lizeth Almeida, precision lens technician Process Patient Disposition : Discharge Personal Belongings [...] 06/03/2018 15:03 EST Electronically signed by Gabriela [facility] Conversion Rn Or Lpn Celia at 08/29/2022 6:35 PM CDT documented in this encounter Plan of Treatment Not on file documented as of this encounter Visit Diagnoses Not on filedocumented in this encounter
--- OUTSIDE RECORDS SUMMARY | 2024-12-04 08:00 | XMS_ITS | Encounter Summary ---
Author Organization [employer] ([place], [place], [place], [place]) Address [address] [place] [address] Care Team Providers Care Usability Architect Name Role Phone Unavailable Primary Care Provider Unavailabl e Encounter Details Date Type Department Care Team (Late st Contact Info) Description 06/03/2018 Transcribed Document [facility] [place] Medicine [address] [place] [address] ProviderEbenezer MD [address] [place], [place] [id number] Social History Tobacco Use Types Packs/Day Years [...] - Historical ProviderMD - 06/03/2018 12:08 PM CORPORATE CLAIMS EXAMINER ED Assessment Entered On: 06/03/2018 14:51 EST Performed On: 06/03/2018 13:50 EST by Lizeth Almeida, CLEATER Quick Look Assessment Level of Consciousness : Alert Affect/Behavior : Calm, Cooperative Orientation : Oriented x 4 Skin Color : Other: [place] Skin Temperature : Warm Skin Description : Dry Lizeth Almeida, RN - 06/03/2018 14:50 EST ED General-Functional Assess Communication Barrier : None Primary Language : Vietnamese Any Spiritual/Cultural Needs or Requests : No [...]
--- OUTSIDE RECORDS SUMMARY | 2024-12-04 08:00 | XMS_ITS | Clinical Summary ---
Author Organization [employer] ([place], [place], [place], [place]) Address [address] [place] [address] Care Team Providers Care Senior Sales Operations Manager Name Role Phone Unavailable Primary Care [...]
--- OUTSIDE RECORDS SUMMARY | 2024-12-04 08:00 | XMS_ITS | Referral Summary ---
Author Organization [employer] ([place], [place], [place], [place]) Address [address] [place] [address] Care Team Providers Care Casino Cage Cashier Name Role Phone Unavailable Primary Care Provider [...]
[2024-12-04 08:14] LABS: Hematocrit 32.3 % (42.0-52.0); Hemoglobin 10.7 g/dL (14.1-18.0); Immature Granulocytes % 0.8 %; Mean Corpuscular HGB Conc 33.1 g/dL (31.8-35.4); Mean Corpuscular Hemoglobin 30.8 pg (27.0-31.2); Mean Corpuscular Volume 93.1 fl (80-94); Nucleated Red Blood Cells % 0 %; Platelet Count 157 K/mm3 (142-424); Red Blood Count 3.47 M/mm3 (4.60-6.20); Red Cell Distribution Width-SD 57.8 fL; White Blood Count 6.5 K/mm3 (4.8-10.8)
[2024-12-04 08:23] LABS: INR 0.99 (0.9-1.1); Prothrombin Time 11.0 seconds (10.1-12.5)
[2024-12-04 08:48] LABS: Alanine Aminotransferase 14 U/L (12-78); Albumin Level 4.1 g/dl (3.5-5.0); Alkaline Phosphatase 102 U/L (38-126); Anion Gap 11.0 mEq/L (5-15); Aspartate Amino Transferase 15 U/L (17-59); Bilirubin,Direct 0.5 mg/dl (0.0-0.4); Bilirubin,Indirect 0.2 mg/dL (0.0-0.9); Bilirubin,Total 0.7 mg/dl (0.2-1.3); Bilirubin,Unconjugated 0.1 mg/dL (0.0-1.1); Blood Urea Nitrogen 22 mg/dl (9-20); Calcium 9.6 mg/dl (8.4-10.2); Carbon Dioxide 27 mmol/L (22.0-30.0); Chloride 106 mmol/L (98-107); Creatinine,Serum 0.90 mg/dl (0.66-1.25); Estimated Glomerular Filt Rate 93 ml/min (>60); GFR (African American) 113 ML/MIN (>60); Glucose 100 mg/dl (74-100); Magnesium 1.2 mg/dl (1.6-2.3); Phosphorous 4.6 mg/dl (2.5-4.5); Potassium 4.0 mmoL/L (3.5-5.1); Sodium 140 mmol/L (136-145); Total Protein,Serum 5.8 g/dl (6.3-8.2)
[2024-12-08 08:10] LABS: Tacrolimus (FK506), Blood 7.5 ng/mL (5.0-20.0)
== END 2024-12-04 23:59 | disposition home or self-care (01) ==
LOC: LAB 07:44
PROVIDERS: PCP Nurse Practitioner Family; Visit Provider Student in an Organized Health Care Education/Training Program
DX: K74.60 Unspecified cirrhosis of liver (principal); R18.8 Other ascites; Z94.4 Liver transplant status; Z79.60 Long term (current) use of unspecified immunomodulators and immunosuppressants
CPT/HCPCS: 36415; 80069; 80076; 80197; 83735; 85025; 85610

== ENCOUNTER 2024-12-08 10:37 | Outpatient (CLI) | payer OTHER, SELFPAY ==
--- OUTSIDE RECORDS SUMMARY | 2024-10-05 23:12 | XMS_ITS | Encounter Summary ---
Author Organization [facility] Address [facility] [place] [address] Care Team Providers Care Business Process Specialist Name Role Phone Enednia Mcguire NP Primary Care Provider [phone] Source Comments This information has been disclosed [...] release of HIV test results or diagnoses. [id number] Reason for Referral * Surgical (Routine) - Pending Review Specialty Diagnoses / Procedures Referred By Shane hernadez Referred To Contact Gastroenterology Diagnoses Alcoholic cirrhosis of liver with ascites (CMS-HCC) Procedures Case request GI: EGGerri Min MD [address] [place] [address] Phone: tel: fax: Referral ID Status Reason Start Date Expiration Date V isits Requested Visits Authorized [id number] Pending Review 10/08/2024 04/06/2025 1 1 Reason for Visit * Auth/Cert (Routine) Specialty Diagnoses / Procedures Referred By Shane hernadez Referred To Contact General Internal Medicine Diagnoses [facility] [address] [place] [address] Phone: tel: Referral ID Status Reason Start Date Expiration Date Visits Re quested Visits Authorized [id number] 1 1 Encounter Details Date Type Department Care Team (Latest Contact Info) Description 10/05/2024 11:12 PM EDT - 10/17/2024 10:29 AM EDT Hospital Encounter [facility] [address] [place] [id number] Angie Blanchard MD [address] [place] [address] Fouzia Rene MD [address] [place] [address] Med/[place] [address] Chelsy Lerner MD [address] [place] [address] [place] [address] Alcoholic cirrhosis of liver with [...] Recorded In the past 12 months has [employer], gas, oil, or water [employer] threatened to shut off services in your [...] living in a intermediate (including now)? No 10/06/2024 Yearly Questionnaire Answer [...] Home post discharge: Not Applicable Kandy BAE [facility] [phone] * William Blount MD - 10/17/2024 8:50 AM EDT [facility] Inpatient Discharge Summary Patient: Julien Gilbert Age: 39 y.o. CSN: [id number] Date of Admission: 10/05/2024 Date of Discharge: 10/17/2024 Attending Physician: Chelsy Lerner MD Primary Care Physician: Enedina Mcguire NP Diagnoses Present on Admission Past Medical History: Diagnosis Date Alcoholic cirrhosis of liver (CMS-HCC) Esophageal varices (CMS-HCC) Hepatorenal syndrome (CMS-HCC) Hypertension Other hyperlipidemia 07/26/2024 Renal cell carcinoma (CMS-HCC) Thrombocytopenia ([facility]-HCC) Thyroid disease Discharge Diagnoses Active Hospital [...] Case IDs Date Procedure Surgeon Location Status [id number] 10/10/24 EGD Lion Soto MD ENDOSCOPY Comp [id number] 10/14/24 Left Heart Cath Irving Matta MD [...] at 10/08/2024 1:12 PM EDT US Duplex Ylg-Nkc-Wgtmmtk Comp Final Result IMPRESSION: ABDOMEN 1. Cirrhotic [...] 90 tablet Refills: 0 naloxone 4 mg/actuation [place] Commonly known as: NARCAN Apply 1 spray [...] Your Medications These medications were sent to [facility] [address] [place] [id number] Hours: Sunday - Sunday: 8:00AM - 6:00PM FLUoxetine 20 MG capsule lactulose 10 gram/15 mL solution loratadine 10 mg tablet methocarbamoL 500 MG tablet midodrine 10 MG tablet naloxone 4 mg/actuation [place] oxyCODONE 5 MG immediate release tablet Discharge [...] Order Questions: Select Supplement: Boost-1 kcal/ml supplement ([facility] only) As listed above, low sodium [...] AM EDT 10/17/2024 naloxone (NARCAN) 4 mg/actuation [place] Apply 1 spray in one nostril if [...] Hughes MD - 10/17/2024 10:23 AM EDT [facility] PROGRESS NOTE Name: Julien Gilbert CSN: [id number] Consulted by: Chelsy Lerner MD Reason for [...] Yes Past Week naloxone (NARCAN) 4 mg/actuation [place] Apply 1 spray in one nostril if [...] nucleated cells, <2000 RBCs 10% Polynuclear, 90% [place] nuc. There were initial reports of gram [...] chemical dependency treatment as outpatient. - [facility] with no obstructive coronary disease - Psych eval for PTSD With recommendation of sertraline - Given his renal dysfunction, will plan to list for [facility] when he qualifies on 10/22/2024. Labs next week - Plan for d/c today Bobby Sidhu MD Transplant Assistant Reading Teacher Please see the body of the resident, [...] <30 until October 22. Waiting for [facility] today. ASSESSMENT NADIYA on CKD, [...] Staff. Jeremiah Gamino PGY4 Nephrology. Pager no. [phone] Chief Complaint No chief complaint on file. [...] at 10/08/2024 1:12 PM EDT US Duplex Omj-Iin-Kengzba Comp Final Result IMPRESSION: ABDOMEN 1. Cirrhotic [...] no head imaging has been performed at [facility]. -CT Head w/o contrast -Imaging showed [...] Order Questions: Select Supplement: Boost-1 kcal/ml supplement ([facility] only) Code Status: Full Code Signed: WILLIAM BLOUNT MD 10/16/2024, 2:16 PM Cosigned by Chelsy Lerner MD at 10/16/2024 5:38 PM EDT Associated attestation - Chelsy Lerner MD - 10/16/2024 5:38 PM EDT [facility] Medicine Attending Supervision Note Julien Gilbert [...] another specialty or practice, other licensed professional (PT/OT/PETROLOGY TEACHER/RT), or a non-medical community professional: Hepatology, Interventional [...] due to positioning during LHC on 10/14. [place] the worst in CVR, but has improved [...] Kumar, RD - 10/16/2024 1:08 PM EDT [facility] Medical Nutrition Therapy Follow-Up Diet Order/Nutrition Support: Regular diet, Boost TID - Vanilla preference Pertinent Information: This is a 39 year old male history of ETOH cirrhosis d/b HE, ascites with SBP who is admitted for AMS. Precipitant of his HE likely SBP. Diagnostic paracentesis at OSH reportedly showed 61 nucleated cells, <2000 RBCs 10% Polynuclear, 90% [place] nuc. There were initial reports of gram [...] Based on CBW of 119.5 kg Kcals/day: 5535-7290 (18-21 kcals/kg) Protein g/day: 119-143 (1-1.2 g/kg) [...] Kumar RD, LD Clinical Dietitian Contact via Dimple Dough * Jerad Hughes MD - 10/16/2024 11:03 AM EDT [facility] PROGRESS NOTE Name: Julien Gilbert CSN: [id number] Consulted by: Chelsy Lerner MD Reason for [...] nucleated cells, <2000 RBCs 10% Polynuclear, 90% [place] nuc. There were initial reports of gram [...] chemical dependency treatment as outpatient. - [facility] with no obstructive coronary disease - Psych eval for PTSD With recommendation of sertraline - Given his renal dysfunction, will plan to list for [facility] when he qualifies on 10/22/2024. - Will follow Bobby Sidhu MD Transplant Assistant Reading Teacher Please see the body of the resident, [...] <30 until October 22. Waiting for [facility] today. ASSESSMENT NADIYA on CKD, [...] on 10/08/2024 Iron%- Iron replete PLAN -[facility] yesterday- patient remains at risk of contrast related injury on top of exisiting NADIYA for 24-48 hrs after contrast load. -He is volume overloaded -patient needs to follow up closely with nephrology after discharge Thank you for allowing us to participate in this patient's care. Discussed with Consult Staff. Jeremiah Gamino PGY4 Nephrology. Pager no. [phone] Chief Complaint No chief complaint on file. Reason for Consult NADIYA History of Present Illness Julien Glibert is a 39 y.o. y/o male with [...] visitis Acute kidney injury superimposed on CKD ([facility]-HCC). NAEON. Pt's C yesterday without concern for [...] at 10/08/2024 1:12 PM EDT US Duplex Qke-Dqd-Mpxkrsr Comp Final Result IMPRESSION: ABDOMEN 1. Cirrhotic [...] no head imaging has been performed at [facility]. -CT Head w/o contrast -Imaging showed [...] Order Questions: Select Supplement: Boost-1 kcal/ml supplement ([facility] only) Code Status: Full Code Signed: [...] another specialty or practice, other licensed professional (PT/OT/PETROLOGY TEACHER/RT), or a non-medical community professional: Hepatology, Interventional [...] due to positioning during LHC on 10/14. [place] the worst in CVR, but has improved [...] Hughes MD - 10/15/2024 10:15 AM EDT [facility] PROGRESS NOTE Name: Julien Gilbert CSN: [id number] Consulted by: Chelsy Lerner MD Reason for [...] hyperlipidemia 07/26/2024 Renal cell carcinoma (CMS-HCC) Thrombocytopenia ([facility]-HCC) Thyroid disease Past Surgical History: Procedure Laterality [...] nucleated cells, <2000 RBCs 10% Polynuclear, 90% [place] nuc. There were initial reports of gram [...] - Will follow Bobby Sidhu MD Transplant Assistant Reading Teacher Please see the body of the resident, [...] Quan MD - 10/14/2024 2:34 PM EDT [facility] Department of Cardiovascular Health and Diseases [...] <30 until October 22. Waiting for [facility] today. ASSESSMENT NADIYA on CKD, last discharge creatinine 2.4 Baseline Creatinine 1.2-1.3, HRS- NADIYA as no response to holding lasix and albumin UA bland Urine lytes <10/< 15/ 50 Holding lasix give [facility] today Renal Function: Recent Labs [...] on 10/08/2024 Iron%- Iron replete PLAN -[facility] today -pt is volume up slightly -standing weights daily -c.w sodium bicarb tablets -discssed with the patient anad family about risk of needing HD after [facility] Thank you for allowing us to participate in this patient's care. Discussed with Consult Staff. Jeremiah Gamino PGY4 Nephrology. Pager no. [phone] Chief Complaint No chief complaint on file. [...] at 10/08/2024 1:12 PM EDT US Duplex Gmk-Jgt-Joxryqn Comp Final Result IMPRESSION: ABDOMEN 1. Cirrhotic [...] tolerate Stress ECHO on 10/09 - [facility] today -Per GI recs, started [...] no head imaging has been performed at [facility]. -CT Head w/o contrast -Imaging showed [...] required dialysis. Patient is going for [facility] today and will receive contrast, [...] Order Questions: Select Supplement: Boost-1 kcal/ml supplement ([facility] only) Code Status: Full Code Signed: WILLIAM BLOUNT MD 10/14/2024, 10:26 AM Cosigned by Chelsy Lerner MD at 10/14/2024 11:53 AM EDT Associated attestation - Chelsy Lerner MD - 10/14/2024 11:53 AM EDT [facility] Medicine Attending Supervision Note Julien Gilbert [...] another specialty or practice, other licensed professional (PT/OT/PETROLOGY TEACHER/RT), or a non-medical community professional: Hepatology, Interventional [...] Hughes MD - 10/14/2024 7:42 AM EDT [facility] PROGRESS NOTE Name: Julien Gilbert CSN: [id number] Consulted by: Chelsy Lerner MD Reason for [...] nucleated cells, <2000 RBCs 10% Polynuclear, 90% [place] nuc. There were initial reports of gram [...] ongoing. Transplant work up ongoing - [facility] today - Transplant nephrology following [...] - Will follow Bobby Sidhu MD Transplant Assistant Reading Teacher Please see the body of the resident, [...] Staff. Jeremiah Gamino PGY4 Nephrology. Pager no. [phone] Chief Complaint No chief complaint on file. [...] (See Comments) Became Manic Cosigned by Dwayne Paze MD at 10/13/2024 5:33 PM EDT Associated [...] Hughes MD - 10/13/2024 12:33 PM EDT [facility] PROGRESS NOTE Name: Julien Gilbert CSN: [id number] Consulted by: Fouzia Rene MD Reason for [...] Alcoholic hepatitis Esophageal varices (CMS-HCC) Hepatorenal syndrome ([facility]-HCC) Hypertension Other hyperlipidemia 07/26/2024 Renal cell [...] nucleated cells, <2000 RBCs 10% Polynuclear, 90% [place] nuc. There were initial reports of gram [...] ongoing. Transplant work up ongoing - [facility] today - Transplant nephrology following [...] - Will follow Bobby Sidhu MD Transplant Assistant Reading Teacher Please see the body of the resident, [...] any interval liver pathology. * Rebekah Linares, [facility] - 10/13/2024 12:30 PM EDT Start Time: [...] no psychomotor abnormalities Cognition: short term and long-term memory intact Attitude: cooperative Affect: full range [...] Fabian, RD - 10/13/2024 10:49 AM EDT [facility] Medical Nutrition Therapy Reason(s) for Completion: [...] Order Questions: Select Supplement: Boost-1 kcal/ml supplement ([facility] only) Pertinent Information: Julien Gilbert is [...] kg) Body mass index is 32.07 kg/m??. [place] Body Weight: 202 lbs (91.8 kg) +/- 10% Weight History: Wt Readings from Last 10 Encounters: 10/10/24 (!) 263 lb 8 oz (119.5 kg) 09/05/24 (!) 262 lb 9.6 oz (119.1 kg) 09/02/24 (!) 258 lb (117 kg) 08/17/24 (!) 242 lb 11.2 oz (110.1 kg) 07/28/24 (!) 245 lb (111.1 kg) Estimated Nutrition Needs: Based on CBW of 119.5 kg Kcals/day: 6236-6467 (18-21 kcals/kg) Protein g/day: 119-143 (1-1-2 g/kg) [...] Dietitian - Solid Organ Transplant Contact via Soum Chat * Eileen Schroeder MD, PhD - [...] at 10/08/2024 1:12 PM EDT US Duplex Zxp-Mns-Cnpkdzq Comp Final Result IMPRESSION: ABDOMEN 1. Cirrhotic [...] no head imaging has been performed at [facility]. -CT Head w/o contrast -Imaging showed [...] Order Questions: Select Supplement: Boost-1 kcal/ml supplement ([facility] only) Code Status: Full Code Signed: [...] reviewed the documentation by the medical steam boiler fireman and agree as documented. Any additions or clarifications are listed below. Daily plan was discussed with patient at bedside and questions addressed. Patient ID: Julien Gilbert is a 39 y.o. male currently admitted for Acute kidney injury superimposed on CKD ([facility]) Supplemental History/ ROS: No acute events [...] for Acute kidney injury superimposed on CKD ([facility]) Active Problems: NADIYA (acute kidney injury) on CKD ([facility]): Hepatorenal syndrome. Appreciate nephrology consult. S/p albumin X3. Baseline creatinine presumed to be around 2.5. Creatinine now seems to be fluctuating between 2.5-2.9 which may be his new baseline. We will continue to monitor. Spontaneous Bacterial Peritonitis ([facility]-HCC): Received 4 days of vancomycin, Ceftriaxone x 5d. Recent therapeutic paracentesis shows resolution. Continue Cipro prophylaxis Anemia: Multiple contributors. S/p 1 unit PRBC. Hemoglobin responded appropriately and remained stable. Will continue to monitor. Metabolic encephalopathy: Resolved. Likely related to combination of hepatic, metabolic, and possibly infectious insults. - Continue home lactulose and rifaximin Decompensated cirrhosis ([facility]-HCC): Appreciate hepatology consult. He has started [...] non-diagnostic due to hypotension. Plan for [facility] today, but now moved to [...] medically ready. Consider d/c home after [facility] tomorrow. FOUZIA RENE MD Attending Physician Department of Internal Medicine 10/13/2024 Medical Decision Making: // LEVEL 2 MOD One chronic illness with exacerbation, progression, or side effects of treatment Discussed with physician/SAWYER from another specialty or practice, other licensed professional (PT/OT/PETROLOGY TEACHER/RT), or a non-medical community professional: Nephrology, Hepatology [...] at 10/08/2024 1:12 PM EDT US Duplex Ixc-Atu-Nlxrgyt Comp Final Result IMPRESSION: ABDOMEN 1. Cirrhotic [...] no head imaging has been performed at [facility]. -CT Head w/o contrast -Imaging showed [...] Order Questions: Select Supplement: Boost-1 kcal/ml supplement ([facility] only) Code Status: Full Code Signed: [...] reviewed the documentation by the medical steam boiler fireman and agree as documented. Any additions or clarifications are listed below. Daily plan was discussed with patient at bedside and questions addressed. Patient ID: Julien Gilbert is a 39 y.o. male currently admitted for Acute kidney injury superimposed on CKD ([facility]) Supplemental History/ ROS: No acute events [...] non-diagnostic due to hypotension. Plan for [facility] tomorrow. - EGD completed. - [...] another specialty or practice, other licensed professional (PT/OT/PETROLOGY TEACHER/RT), or a non-medical community professional: Nephrology, Hepatology [...] cardiac workup pre txp. pLan for [facility] Sunday Liver transplant workup per [...] 706.9 (H) 10/08/2024 No results found for: [id number] , FOLATE Lab Results Component Value Date [...] CRUR No results found for: MICROALBUR , [id number] In addition to the above an extensive [...] 4.6 10/12/2024 Lab Results Component Value Date EDQE90E 7.1 (L) 10/08/2024 PLAN Monitor renal panel [...] AM Colten Huertas MD, KISHOR LIN FNKF tuna purse seiner Div. of Nephrology [facility] E-mail: [email or web address] This note was completely edited, [...] MD Interval hx No issues. Pending [facility]. Assessment: Renal Function: Cr: 2.77 [...] 706.9 (H) 10/08/2024 No results found for: LPVDMDGU30 , FOLATE Lab Results Component Value Date [...] CRUR No results found for: MICROALBUR , [id number] In addition to the above an extensive [...] (CMS-HCC), and Thyroid disease. who presents for NAIDYA in the context of his liver disease [...] 3.5 10/11/2024 Lab Results Component Value Date JTRP34P 7.1 (L) 10/08/2024 PLAN Monitor renal panel [...] AM Colten Huertas MD, KISHOR LIN, FNDeclanF tuna purse seiner Div. of Nephrology [facility] E-mail: [email or web address] This note was completely edited, [...] is Acute kidney injury superimposed on CKD ([facility]). NAEON Pt felt much better today. [...] at 10/08/2024 1:12 PM EDT US Duplex Jue-Ehz-Emjdsmo Comp Final Result IMPRESSION: ABDOMEN 1. Cirrhotic [...] from outside facility. Will engage with them daily([phone]. Ask to speak to a tech) about [...] no head imaging has been performed at [facility]. -CT Head w/o contrast -Imaging showed [...] Order Questions: Select Supplement: Boost-1 kcal/ml supplement ([facility] only) Code Status: Full Code Signed: [...] reviewed the documentation by the medical steam boiler fireman and agree as documented. Any additions or clarifications are listed below. Daily plan was discussed with patient at bedside and questions addressed. Patient ID: Julien Gilbert is a 39 y.o. male currently admitted for Acute kidney injury superimposed on CKD ([facility]) Supplemental History/ ROS: No acute events [...] reflux disease) Anemia SBP (spontaneous bacterial peritonitis) ([facility]) Neck pain with history of cervical [...] another specialty or practice, other licensed professional (PT/OT/PETROLOGY TEACHER/RT), or a non-medical community professional: Nephrology, Hepatology, [...] Strictly monitor urine output No Indication for MOLD TECHNICIAN 3. Not a candidate for terlipressin [...] Ignacio Queen MD Renal Fellow Pager # [phone] Chief Complaint No chief complaint on file. [...] PHOS -- < > 3.5 3.4 3.3 GVNN87U 7.1* -- -- -- -- < > = values in this interval not displayed. Lab Results Component Value Date IRON 81 10/08/2024 TIBC SEE COMMENT 10/08/2024 FERRITIN 706.9 (H) 10/08/2024 No results found for: QGBAPUAO15 , FOLATE Lab Results Component Value Date [...] CRUR No results found for: MICROALBUR , [id number] In addition to the above an extensive [...] 3.3 10/10/2024 Lab Results Component Value Date RUPL54F 7.1 (L) 10/08/2024 PLAN Continue IV albumin [...] AM Colten Huertas MD, KISHOR LIN, CATHYF tuna purse seiner Div. of Nephrology [facility] E-mail: [email or web address] This note was completely edited, [...] to follow pt while pt is at [facility]. * Jodi Ortiz PharmD - 10/10/2024 10:27 AM EDT Clinical Pharmacy Service: Vancomycin Consult Progress Note Patient has been transitioned off of vancomycin therapy per team notes and orders. Pharmacy will sign-off at this time, please do not hesitate to consult again as needs arise. Thank you for involving pharmacy in the care of this patient. Jodi Ortiz PharmD Clinical Warranty Administrator, Internal Medicine Preferred contact: [facility] Wvlmwlc-Bx-Xkla Pager: [phone] October 10, 2024 10:27 AM Laboratory Data [...] 10/07/2024 10:50 PM Giardia Cryptosporidium Antigens Final [id number] 10/07/2024 10:50 PM Ova and Parasite Comprehensive w/ Giardia/Crypto Final [id number] Feces 10/06/2024 1:04 AM #2 Blood culture-Peripheral site 2 Preliminary [id number] Peripheral 10/06/2024 1:04 AM #1 Blood culture-Peripheral site 1 Preliminary [id number] Peripheral Pharmacokinetics Lab Results (Last 7 days) Today 0523 Yesterday 0459 10/08 0536 Vanc Rdm 16.4 11.0 16.0 * Gerri Peterson MD - 10/10/2024 10:09 AM EDT [facility] PROGRESS NOTE Name: Julien Gilbert CSN: [id number] Consulted by: Fouzia Rene MD Reason for [...] nucleated cells, <2000 RBCs 10% Polynuclear, 90% [place] nuc. Per OSH reports, ascitic fluid cultures [...] not included. [facility] Clinical Pharmacy Service: Vancomycin Monitoring Consult [...] in sodium chloride 0.9 % 250 mL Pszi4Eor (Completed) 1,500 mg Once 10/09/2024 10/09/2024 Admin Instructions: Contact pharmacy if there is a question/concern of whether vancomycin should begiven based on serum drug levels. Use Vnql1Tjr Adapter - Mix Thoroughly Before Administration Route: Intravenous vancomycin (VANCOCIN) 1,500 mg in sodium chloride 0.9 % 250 mL Yfgk2Spf 1,500 mg Once 10/10/2024 10/11/2024 Admin Instructions: Contact pharmacy if there is a question/concern of whether vancomycin should begiven based on serum drug levels. Use Zxwb8Hep Adapter - Mix Thoroughly Before Administration Route: [...] in sodium chloride 0.9 % 250 mL Yell7Yyi 1,500 mg 166.7 mL/hr 10/08/24 1259 New Bag vancomycin (VANCOCIN) 1,000 mg in sodium chloride 0.9 % 250 mL Znmd5Dcw 1,000 mg 250 mL/hr --Objective Data-- Vitals: [...] 53 53 54 Creatinine 2.85 2.89 3.04 [place] body weight: 86.8 kg (191 lb 5.7 oz) Adjusted ideal body weight: 99.9 kg (220 lb 3.5 oz) Estimated CrCl: ~35-45 mL/min --Cultures-- Microbiology Results Date and Time Order Name Sensitivity Status Organisms Specimen ID Source 10/07/2024 10:50 PM Giardia Cryptosporidium Antigens Final [id number] 10/07/2024 10:50 PM Ova and Parasite Comprehensive w/ Giardia/Crypto Final [id number] Feces 10/06/2024 1:04 AM #2 Blood culture-Peripheral site 2 Preliminary [id number] Peripheral 10/06/2024 1:04 AM #1 Blood culture-Peripheral site 1 Preliminary [id number] Peripheral --Vancomycin Concentrations-- Lab Results (Last 7 [...] for the consult. Jodi Ortiz, PharmD Clinical Warranty Administrator, Internal Medicine Preferred contact: [employer] [facility] Hcldgbf-Lq-Dgfd Pager: [phone] October 10, 2024 9:13 AM * Eileen Schroeder MD, PhD - 10/10/2024 8:17 AM EDT Department of Internal Medicine Daily Progress Note Chief Complaint / Reason for Follow-Up Julien Gilbert is a 39 y.o. male on hospital day 5. The principal reason for today's follow up visit is Acute kidney injury superimposed on CKD ([facility]). KARENEMERLINE Pt was very conversational today. A&O [...] at 10/08/2024 1:12 PM EDT US Duplex Ylw-Fvv-Vuowmkc Comp Final Result IMPRESSION: ABDOMEN 1. Cirrhotic [...] from outside facility. Will engage with them daily([phone]. Ask to speak to a tech) about [...] no head imaging has been performed at [facility]. -CT Head w/o contrast -Imaging showed [...] Order Questions: Select Supplement: Boost-1 kcal/ml supplement ([facility] only) Code Status: Full Code Signed: [...] reviewed the documentation by the medical steam boiler fireman and agree as documented. Any additions or clarifications are listed below. Daily plan was discussed with patient at bedside and questions addressed. Patient ID: Julien Gilbert is a 39 y.o. male currently admitted for Acute kidney injury superimposed on CKD ([facility] [facility] Supplemental History/ ROS: No acute events [...] another specialty or practice, other licensed professional (PT/OT/PETROLOGY TEACHER/RT), or a non-medical community professional: Nephrology, Hepatology, [...] 10/08/2024 LDH: 102 on 10/08/2024 Anemia Plan: Ndaiya on CKD, likely HRS, likely triggered by recent paracentesis and diarrhea, recent cr around 2.4,will obtain OSH records 2. Continue Bicarb tablets 1300 3 times daily for NAGMA related to diarrhea Strictly monitor urine output No Indication for MOLD TECHNICIAN Not a candidate for terlipressin per liver due to HE, liver and kidney failure, on midodrine tid. Considering para today, cardiac workup pre txp Liver transplant workup per GI/ Primary team, considering for SLK, seen by renal transplant team Thank you for allowing us to participate in this patient's care. Discussed with Consult Staff. Ignacio Queen MD Renal Fellow Pager # [phone] Chief Complaint No chief complaint on file. [...] 9.0 9.3 PHOS -- 3.5 3.5 3.4 LPTR14N 7.1* -- -- -- Lab Results Component Value Date IRON 81 10/08/2024 TIBC SEE COMMENT 10/08/2024 FERRITIN 706.9 (H) 10/08/2024 No results found for: [id number] , FOLATE Lab Results Component Value Date [...] CRUR No results found for: MICROALBUR , [id number] In addition to the above an extensive [...] 3.4 10/09/2024 Lab Results Component Value Date DFTO13T 7.1 (L) 10/08/2024 PLAN Continue IV albumin [...] PM Colten Huertas MD, KISHOR LIN FNKF tuna purse seiner Div. of Nephrology [facility] E-mail: [email or web address] This note was completely edited, [...] Peterson MD - 10/09/2024 1:07 PM EDT [facility] PROGRESS NOTE Name: Julien Gilbert CSN: [id number] Consulted by: Fouzia Rene MD Reason for [...] nucleated cells, <2000 RBCs 10% Polynuclear, 90% [place] nuc. Fluid cultures reportedly grew gram + [...] not included. [facility] Clinical Pharmacy Service: Vancomycin Monitoring Consult [...] in sodium chloride 0.9 % 250 mL Awsu6Ngc (Completed) 1,000 mg Once 10/08/2024 10/08/2024 Admin Instructions: Contact pharmacy if there is a question/concern of whether vancomycin should begiven based on serum drug levels. Use Nbfi8Vis Adapter - Mix Thoroughly Before Administration Route: Intravenous vancomycin (VANCOCIN) 1,500 mg in sodium chloride 0.9 % 250 mL Dgsg1Usz 1,500 mg Once 10/09/2024 10/10/2024 Admin Instructions: Contact pharmacy if there is a question/concern of whether vancomycin should begiven based on serum drug levels. Use Ynbm7Iwb Adapter - Mix Thoroughly Before Administration Route: [...] in sodium chloride 0.9 % 250 mL Mhba2Svy 1,000 mg 250 mL/hr 10/06/24 1413 New [...] 10/07/2024 10:50 PM Giardia Cryptosporidium Antigens Final [id number] 10/07/2024 10:50 PM Ova and Parasite Comprehensive w/ Giardia/Crypto Final [id number] Feces 10/06/2024 1:04 AM #2 Blood culture-Peripheral site 2 Preliminary [id number] Peripheral 10/06/2024 1:04 AM #1 Blood culture-Peripheral site 1 Preliminary [id number] Peripheral --Vancomycin Concentrations-- Lab Results (Last 7 [...] for the consult. Jodi Ortiz PharmD Clinical Warranty Administrator, Internal Medicine Preferred contact: [employer] [facility] Pthjuwj-Ol-Xopi Pager: [phone] October 09, 2024 8:29 AM * Eileen [...] at 10/08/2024 1:12 PM EDT US Duplex Uhu-Gtv-Nsnauiu Comp Final Result IMPRESSION: ABDOMEN 1. Cirrhotic [...] from outside facility. Will engage with them daily([phone]. Ask to speak to a tech) about [...] no head imaging has been performed at [facility]. -CT Head w/o contrast -Imaging showed [...] Order Questions: Select Supplement: Boost-1 kcal/ml supplement ([facility] only) Code Status: Full Code Signed: [...] reviewed the documentation by the medical steam boiler fireman and agree as documented. Any additions or clarifications are listed below. Daily plan was discussed with patient at bedside and questions addressed. Patient ID: Julien Gilbert is a 39 y.o. male currently admitted for Acute kidney injury superimposed on CKD ([facility]-HCC) Supplemental History/ ROS: No acute events [...] reviewed. Medical Decision Making/ Assessment & Plan: Juline Gilbert is a 39 y.o. male with admitted for Acute kidney injury superimposed on CKD ([facility]-HCC) Active Problems: Anemia: S/p 1 unit PRBC from yesterday. Hemoglobin responded appropriately and remained stable. Will continue to monitor. Metabolic encephalopathy: Mostly resolved. Likely related to combination of hepatic, metabolic, andpossibly infectious insults. - Continue home lactulose and rifaximin Spontaneous Bacterial Peritonitis ([facility]-HCC): Cultures from OSH are growing gram- positive organisms.We continue to await speciation. He remains afebrile and vital signs have been stable. - Continue vancomycin and ceftriaxone for now. - Will follow-up on speciation and sensitivities. Decompensated cirrhosis ([facility]-HCC): Appreciate hepatology consult. He has started [...] another specialty or practice, other licensed professional (PT/OT/PETROLOGY TEACHER/RT), or a non-medical community professional: Nephrology, Hepatology Labs reviewed (1 pt each): CBC, CMP, INR & other daily labs Review of notes from a different specialty or different practice: Nephrology, Anesthesiology hepatology, * Gerri Peterson MD - 10/08/2024 1:40 PM EDT [facility] PROGRESS NOTE Name: Julien Gilbert CSN: [id number] Consulted by: Fouzia Rene MD Reason for [...] nucleated cells, <2000 RBCs 10% Polynuclear, 90% [place] nuc. Fluid cultures reportedly grew gram + [...] disease (ESRD) patient in a hospital based, [facility]-hospital based, or home setting. -At [...] I have discussed this plan with the rn mds coordinator and the liver transplant team. Cosigned [...] not included. [facility] Clinical Pharmacy Service: Vancomycin Monitoring Consult [...] in sodium chloride 0.9 % 250 mL Sjbc1Jhe 1,000 mg Once 10/08/2024 10/09/2024 Admin Instructions: Contact pharmacy if there is a question/concern of whether vancomycin should begiven based on serum drug levels. Use Wlbr7Ivt Adapter - Mix Thoroughly Before Administration Route: [...] 10/07/2024 10:50 PM Giardia Cryptosporidium Antigens Final [id number] 10/07/2024 10:50 PM Ova and Parasite Comprehensive w/ Giardia/Crypto In process [id number] Feces 10/06/2024 1:04 AM #2 Blood culture-Peripheral site 2 Preliminary [id number] Peripheral 10/06/2024 1:04 AM #1 Blood culture-Peripheral site 1 Preliminary [id number] Peripheral --Vancomycin Concentrations-- Lab Results (Last 7 [...] for the consult. Jodi Ortiz PharmD Clinical Warranty Administrator, Internal Medicine Preferred contact: [employer] [facility] Jwihfud-Yu-Xxqk Pager: [phone] October 08, 2024 9:13 AM * Eileen [...] FREET4 0.74 09/03/2024 Diagnostic Studies US Duplex Viz-Csu-Diljmum Comp Final Result IMPRESSION: ABDOMEN 1. Cirrhotic [...] no head imaging has been performed at [facility]. -CT Head w/o contrast -Imaging showed [...] Order Questions: Select Supplement: Boost-1 kcal/ml supplement ([facility] only) Code Status: Full Code Signed: [...] reviewed the documentation by the medical steam boiler fireman and agree as documented. Any additions or [...] home lactulose and rifaximin Spontaneous Bacterial Peritonitis ([facility]-HCC): Cultures from OSH are growing gram- positive organisms.We continue to await speciation. He remains afebrile and vital signs have been stable. - Continue vancomycin and ceftriaxone for now. - Will follow-up on speciation and sensitivities. Decompensated cirrhosis ([facility]): Appreciate hepatology consult. He has [...] Problem: Metabolic encephalopathy Active Problems: Decompensated cirrhosis ([facility]-HCC) Acute kidney injury superimposed on CKD ([facility]) Thrombocytopenia ([facility]) Renal mass, left Metabolic acidosis [...] another specialty or practice, other licensed professional (PT/OT/PETROLOGY TEACHER/RT), or a non-medical community professional: Nephrology, Hepatology [...] Strictly monitor urine output No Indication for MOLD TECHNICIAN Not a candidate for terlipressin per liver due to HE, liver ans kidney failure, on midodrine tid Liver transplant workup per GI/ Primary team, considering for SLK Thank you for allowing us to participate in this patient's care. Discussed with Consult Staff. Ignacio Queen MD Renal Fellow Pager # [phone] Chief Complaint No chief complaint on file. [...] of liver (CMS-HCC), Alcoholic hepatitis, Esophageal varices ([facility]-HCC), Hepatorenal syndrome ([facility]- HCC), Hypertension, Other hyperlipidemia (07/26/2024), Renal [...] TIBC , FERRITIN No results found for: [id number] , FOLATE Lab Results Component Value Date [...] <15 No results found for: MICROALBUR , [id number] In addition to the above an extensive [...] 4.0 10/08/2024 Lab Results Component Value Date CTFW98M 7.1 (L) 10/08/2024 PLAN Continue IV albumin [...] AM Colten Huertas MD, KISHOR LIN FNKF tuna purse seiner Div. of Nephrology [facility] E-mail: [email or web address] This note was completely edited, [...] not included. [facility] Clinical Pharmacy Service: Vancomycin Monitoring Consult [...] AM #2 Blood culture-Peripheral site 2 Preliminary [id number] Peripheral 10/06/2024 1:04 AM #1 Blood culture-Peripheral site 1 Preliminary [id number] Peripheral --Vancomycin Concentrations-- Lab Results (Last 7 [...] for the consult. Jodi Ortiz PharmD Clinical Warranty Administrator, Internal Medicine Preferred contact: [employer] [facility] Knesgvc-Ep-Dafr Pager: [phone] October 07, 2024 5:01 PM * Yamile Paige, PT - 10/07/2024 11:45 AM EDT Physical Therapy Initial Assessment and Discharge Name: Julien Gilbert : 1985 Attending Physician: Fouzia Rene MD Admission Diagnosis: AMS Date: 10/07/2024 [facility] Pertinent hospital course: Yes Hospital [...] Peterson MD - 10/07/2024 11:33 AM EDT [facility] PROGRESS NOTE Name: Julien Gilbert CSN: [id number] Consulted by: Fouzia Rene MD Reason for [...] nucleated cells, <2000 RBCs 10% Polynuclear, 90% [place] nuc. Fluid cultures reportedly grewgram + rods. [...] in liver selection meeting and clearance by manager social services. Please order CT cardiac coronary evaluation, transplant [...] Strictly monitor urine output No Indication for MOLD 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 Discussed with Consult Staff. Ignacio Queen MD Renal Fellow Pager # [phone] Chief Complaint No chief complaint on file. [...] TIBC , FERRITIN No results found for: CILWNPMX32 , FOLATE Lab Results Component Value Date [...] <15 No results found for: MICROALBUR , ETFY89SNC In addition to the above an extensive [...] PHOS 4.2 10/07/2024 No results found for: QOOA10D PLAN Continue IV albumin Monitor renal panel [...] AM Colten Huertas MD, KISHOR LIN, FNDeclanF tuna purse seiner Div. of Nephrology [facility] E-mail: [email or web address] * Carmen Bernal OT - [...] at 10/06/2024 2:33 AM EDT US Duplex Vcz-Xcd-Jmfsxri Comp (Results Pending) US Abdomen Complete (Results [...] no head imaging has been performed at [facility]. -CT Head w/o contrast -Imaging showed [...] Order Questions: Select Supplement: Boost-1 kcal/ml supplement ([facility] only) Code Status: Full Code Signed: [...] reviewed the documentation by the medical steam boiler fireman and agree as documented. Any additions or [...] and mental status is improving. Decompensated cirrhosis ([facility]-HCC): Appreciate hepatology consult. He has started his transplant evaluation as an outpatient. We will follow-up with hepatology to discuss any inpatient testing that may need to be needed. - MELD labs daily - Continue home regimen with ursodiol, rifaximin and lactulose NADIYA (acute kidney injury) ([facility]-HCC): Appreciate nephrology consult. Likely has hepatorenal [...] needed for pain. Continue to monitor. Thrombocytopenia ([facility]-HCC) Renal mass, left CKD (chronic kidney disease) stage 4, GFR 15-29 ml/min ([facility]) Metabolic acidosis with normal anion [...] another specialty or practice, other licensed professional (PT/OT/PETROLOGY TEACHER/RT), or a non-medical community professional: Nephrology, Hepatology Labs reviewed (1 pt each): CMP, CBC Test results reviewed (1 pt each): CXR, Head CT Review of notes from a different specialty or different practice: Nephrology, hepatology Use of parenteral controlled substances * Kiet Gardiner, PharmD - 10/06/2024 1:07 PM EDT Images from the original note were not included. [facility] Clinical Pharmacy Service: Vancomycin Monitoring Consult [...] AM #2 Blood culture-Peripheral site 2 Preliminary [id number] Peripheral 10/06/2024 1:04 AM #1 Blood culture-Peripheral site 1 Preliminary [id number] Peripheral --Vancomycin Concentrations-- Lab Results (Last 7 [...] US Retroperitoneal complete (Results Pending) US Duplex Kao-Dug-Iqtwtpp Comp (Results Pending) CT Head WO contrast (Results Pending) Assessment & Plan Jluien Gilbert is a 39 y.o. male on [...] Supervision Note [facility] // [facility] Julien Gilbert was seen 10/06/24 on rounds [...] Lerner MD - 10/05/2024 2:42 PM EDT [facility] Department of Medicine TRANSFER CALL NOTE Location [facility] ED History of Present Illness Julien [...] nearest ED, with plan to transfer to [facility] if needing admission. In the ED, [...] Studies: Na 129 K 4.2 Cl 101 Xjnhmr08 BUN 62 (up from baseline) Cr 3.6 [...] Quan MD - 10/14/2024 1:10 PM EDT [facility] PRE-SEDATION ASSESSMENT, HISTORY & PHYSICAL Date: [...] Neuro: AOx3 AUC For Cath Indication(s) for Learning And Development Associate Visit: Visit Indicators: Suspected CAD 2. Chest Pain Symptom Assessment: Asymptomatic 3. Heart Failure: Yes Class II 4. CHSA Clinical Frailty Scale: Mildly Frail Sedation Plan: Moderate Sedation with Local Anesthesia Antibiotic prophylaxis is not indicated. Mani Quan Interventional Test Engineering Manager Pager: [phone] [1] Patient Active Problem List Diagnosis Decompensated [...] Peterson MD - 10/10/2024 10:05 AM EDT [facility] PRE-SEDATION ASSESSMENT, HISTORY & PHYSICAL Date: [...] Resource Strain: Low Risk (07/09/2024) Received from [facility] Overall Financial Resource Strain [...] No Physical Activity: Unknown (07/14/2024) Received from [facility] Exercise Vital Sign Days of Exercise per Week: Patient unable to answer Minutes of Exercise per Session: Not on file Stress: Patient Unable To Answer (07/14/2024) Received from [facility] Citizen Of [place] of Occupational Health - Occupational Stress Questionnaire Feeling of Stress : Patient unable to answer Social Connections: Patient Unable To Answer (07/14/2024) Received from [facility] Social Connection and Isolation Panel [NHANES] Frequency of Communication with Friends and Family: Patient unable to answer Frequency of Social Gatherings with Friends and Family: Patient unable to answer Attends Church Services: Patient unable to answer Active Member [...] values in this interval not displayed. Imaging: @SHPHKOC50HS@ I have personally reviewed the imaging and have noted the following: Large recanalized umbilical vein Perihilar varices Replaced right hepatic artery Splenomegaly Spontaneous splenorenal shunt Large volume ascites, No portal vein thrombosis Assessment/Plan: A 39 y.o. male with ETOH decompensated by ascites, hepatic encephalopathy,bleeding esophageal Varices. Use and allocation of SCD, YOUTH SUPPORT WORKER, DCD and LDLT allografts discussed in detail. [...] from surgery (5%). I also explained the blower blast furnace risks of transplantation and immunosuppression including viral infection and cancer both solid organand lymphoma. Kemar Sahni MD, Fellow, Multiorgan Abdominal Transplant Surgery. [facility]. 10/09/2024 3:16 PM [1] Allergies Allergen [...] Ortiz MD - 10/06/2024 12:00 AM EDT [facility] Internal Medicine - History and Physical [...] for him to report. Pt arrived with [employer] folder of paperwork from OSH and a disk that was taken to Radiology overnight for imaging upload. [facility] performed a bedside paracentesis and sent studies for SBP analysis. [facility] labs have resulted. Review of Systems 14 pt ROS conducted and negative aside from that mentioned in above HPI Past Medical and Social History Lives in [place], [place] at bedside Notes that the patient [...] OSH Repeat labs pending on admission to [facility] Assessment & Plan Julien Gilbert is [...] Supervision Note [facility] // [facility] Julien Gilbert was seen 10/06/24 on rounds [...] confusion and lethargy. HE was seen at [facility] ED were CT head unremarkable and RUQ with gallstones, abdominal ascites diagnostic para done and started on empiric CTX. Labs remarkable at OSH for K 4.2 Cl 101 Ervqor25 BUN 62 (up from baseline) Cr 3.6 [...] another specialty or practice, other licensed professional (PT/OT/PETROLOGY TEACHER/RT), or a non-medical community professional: ed team [...] Medicine Department of Internal Medicine Pager ID: [phone] 6:04 AM, 10/06/2024 documented in this encounter [...] CNP Vascular & Interventional Radiology 10/10/2024,1:55 PM [facility]: [phone]) * Lino Soto MD - 10/10/2024 12:06 PM EDT EGD Brief Op Note Julien Gilbert 10/05/2024 - 10/10/2024 Pre-op Diagnosis: Alcoholic cirrhosis of liver with ascites (CMS-HCC) [K70.31] Post-op Diagnosis: Portal gastropathy, Medium size, non-bleeding esophageal varices Procedure(s): EGD Surgeon(s): Lino Soto MD Anesthesia: MAC (Monitor Anesthesia Care) Staff: Fellow: Gerri Peterson MD Endoscopy Nurse: Kandice Castaneda RN Uniform Force Captain: Diana Kemp Estimated Blood Loss: Minimal Specimens: Drains: There were no complications unless listed below. LINO SOTO MD Date: 10/10/2024 Time: 12:18 PM * Lino Soto MD - 10/10/2024 11:48 AM EDT [id number] Procedure Date: 10/10/2024 11:48 AM Patient Name: Julien Gilbert Date of : 1985 Admit Type: Inpatient Age: 39 Gender: Male Note Status: Finalized Attending MD: Lino Soto MD, [id number] Procedure: Upper GI endoscopy Indications: Gastroesopahgeal variceal [...] verified by the physician, the nurse, the planting material unloader and the product development technician in the pre-procedure area in the [...] to hypotension Procedure Code(s): --- Professional --- 35944, GC, Esophagogastroduodenoscopy, flexible, transoral; diagnostic, including collection of specimen(s) by brushing or washing, when performed (separate procedure) Diagnosis Code(s): --- Professional --- I85.00, Esophageal varices without bleeding K76.6, Portal hypertension K31.89, Other diseases of stomach and duodenum CPT copyright 2022 [employer]. All rights reserved. The codes documented in this report are preliminary and upon hospital coder review may be revised to meet [...] 12:10:16 PM Scope Out: 12:17:[address] [place] [address], [facility] * Gill Le RN - 10/09/2024 [...] to drive, and stated he has to cable puller occasionally to collect himself, thought denied [...] need for sleep. Has not been on Sarenza for mental health since stopping the cymbalta. [...] mother is and his father resides in [place] [facility]. Patient earned a graduate degree and never served in the . 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 He was raised Orthodoxy and denied current engagement in any community [...] or other abnormalities Cognition/Memory: short term and blower blast furnace memory intact. Attention and concentration: is not [...] from the original note were not included. [facility] General Cardiology Consult Note Referring Physician: [...] at baseline or with provocation, shows no htvnu-ds-yajh atrial level shunt. - Pulmonary arteries: Systolic [...] 10/13/24, please keep NPO on 10/12/24 at [place] Risks and benefits of new therapies added and new invasive and non-invasive procedures/diagnostic testing planned discussed with and understood by the patient/family who agree with the above plan. Plan discussed with the attending physician Dr. Blanco. Recommendations are preliminary until this note is co- signed by the attending. Follow up appointments with Cardiology can be scheduled by calling [phone]. Thank you for the opportunity to participate in this patient's care. Please call orpage with any questions. Leonor Garcia MD Test Engineering Manager I have personally seen, examined, reviewed all [...] 0659 10/11/24 0700 - 10/12/24 0659 Shift 4105-0392 0815-2536 24 Hour Total 3445-7365 6111-1872 8795-7928 24 Hour Total INTAKE P.O. 5291 683 0015 P.O. 5215 479 2851 Boost (mL) - [facility] only 240 240 I.V.(mL/kg) 450(3.8) Volume [...] (See Comments) Became Manic * Bakari Wahl, [facility] - 10/10/2024 10:07 AM EDT Interventional [...] CNP Vascular & Interventional Radiology 10/10/2024,1:54 PM [facility]: [phone]) [1] Social History Tobacco Use Smoking Status [...] EDTAssociated Order(s): IP CONSULT TO INFECTIOUS DISEASES [facility] DEPARTMENT OF INFECTIOUS DISEASE INITIAL NOTE Referring Physician: Fouzia Rene MD Consult Attending: Daria Garcia Patient: Julien Gilbert CSN: [id number] Reason for Consult: CC: Abx management History [...] He was born and raised in [place] . [place]. 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 [...] Resource Strain: Low Risk (07/09/2024) Received from [facility] Overall Financial Resource Strain [...] No Physical Activity: Unknown (07/14/2024) Received from [facility] Exercise Vital Sign Days of Exercise per Week: Patient unable to answer Minutes of Exercise per Session: Not on file Stress: Patient Unable To Answer (07/14/2024) Received from [facility] Citizen Of [place] of Occupational Health - Occupational Stress Questionnaire Feeling of Stress : Patient unable to answer Social Connections: Patient Unable To Answer (07/14/2024) Received from [facility] Social Connection and Isolation Panel [NHANES] Frequency of Communication with Friends and Family: Patient unable to answer Frequency of Social Gatherings with Friends and Family: Patient unable to answer Attends Church Services: Patient unable to answer Active Member [...] day. Qty: 60 tablet, Refills: 0 Comments: [facility] [place] [address] sodium bicarbonate 650 MG tablet Take 2 [...] Aphasia [R47.01] 10/06/2024 SBP (spontaneous bacterial peritonitis) ([facility]) [K65.2] 09/08/2024 Metabolic acidosis with normal anion gap and bicarbonate losses [E87.20] 09/03/2024 CKD (chronic kidney disease) stage 4, GFR 15-29 ml/min ([facility]) [N18.4] 09/03/2024 GERD (gastroesophageal reflux disease) [K21.9] 09/03/2024 Renal mass, left [N28.89] 08/18/2024 Thrombocytopenia ([facility]) [D69.6] Decompensated cirrhosis ([facility] [facility] [K72.90, K74.60] 07/25/2024 NADIYA (acute kidney injury) ([facility]) [N17.9] 07/25/2024 Resolved Hospital Problems [...] Signed: Daria Garcia MD 10/08/2024, 9:46 AM [phone] [1] Allergies Allergen Reactions Adhesive Itching and [...] Resource Strain: Low Risk (07/09/2024) Received from [facility] Overall Financial Resource Strain [...] No Physical Activity: Unknown (07/14/2024) Received from [facility] Exercise Vital Sign Days of Exercise per Week: Patient unable to answer Minutes of Exercise per Session: Not on file Stress: Patient Unable To Answer (07/14/2024) Received from [facility] Citizen Of [place] of Occupational Health - Occupational Stress Questionnaire Feeling of Stress : Patient unable to answer Social Connections: Patient Unable To Answer (07/14/2024) Received from [facility] Social Connection and Isolation Panel [NHANES] Frequency of Communication with Friends and Family: Patient unable to answer Frequency of Social Gatherings with Friends and Family: Patient unable to answer Attends Church Services: Patient unable to answer Active Member [...] is no recent study available for direct [id number] comparison. Left Ventricle The left ventricle is [...] pressures < 35 mmHgon resting echo from [facility] 07/15/24. No ischemic workup noted. ECG [...] surgery with risk (OLT/OKT) Los Broussard MD, [facility] Department of Anesthesiology [1] Allergies Allergen Reactions Adhesive Itching and Rash Tegaderm adhesive on Ivs, pt states its tolerable Duloxetine Other (See Comments) Became Manic [2] Patient Active Problem List Diagnosis Decompensated cirrhosis ([facility]) NADIYA (acute kidney injury) ([facility]) Alcohol use disorder Metabolic encephalopathy [...] MD PCP: Enedina Mcguire NP Home Pharmacy: [facility] [address] [place] [id number] [facility] [address] [place] [phone] Issues related to obtaining medications: Payor Information Medical Insurance Coverage: Payor: [facility] / Plan: [facility] / Product Type: *No Producttype* / Secondary Payor: Functional Assessment Functional Assessment Assessment Information Obtained From:: Patient Current Mental Status: Awake, Oriented to Person, Oriented to Place, Oriented to Time, Oriented to Situation Mental Health History: Yes Behavioral Health Agency Involvement: Yes Behavioral Health Agency Name: Other (Comment) (states he used [facility] for mental health help) Do you [...] confusion and lethargy. HE was seen at [facility] ED were CT head unremarkable and RUQ with gallstones, abdominal ascites diagnostic para done and started on empiric CTX. BSN RN [employer] Teacher Neisha Fuentes met with patient at [...] years ago where he did rehab through [facility]. No history of home health care [...] interest(s) are disclosed as appropriate. Kandy [facility] * ANDREWS Oconnor - 10/07/2024 11:15 AM EDT Speech Language Pathology Speech, Language and Cognitive Initial Assessment Name: Julien Gilbert : 1985 Attending Physician: Fouzia Rene MD Admission Diagnosis: AMS Date: 10/07/2024 Reviewed Pertinent hospital course: Yes Hospital Course PETROLOGY TEACHER: 39 y/o male with a past medical [...] 2. No intracranial mass effect or hemorrhage. PETROLOGY TEACHER Hx: 08/15/24: BSE with recs for regular [...] if new needs arise. No further acute PETROLOGY TEACHER services are warranted for speech, language, or cognition at this time. Plan/Recommendation: - Discharge from PETROLOGY TEACHER - no acute needs at this time - PETROLOGY TEACHER at discharge is not recommended Problem List [...] Primary Mode of Expression: Verbal Primary Language: Urdu Confrontation Naming: Within Functional Limits Word Level [...] Patient educated on: Family educated on;role of PETROLOGY TEACHER, current POC, and discharge recommendations forSLP therapy Patient response: Patient verbalized understanding;Family demonstrated understanding End of Session: Patient was left in bed with call light within reach and all needs met. Gladys Banda M.A, CCC-PETROLOGY TEACHER Speech Language Pathologist--Rehab Services [facility] Certified Clinician Time Start Time: 1055 Stop Time: 1109 Time Calculation (min): 14 min Charges $Eval Speech Sound Prd w/Lng Comp & Expr: 1 Procedure Patient Class Inpatient [1] Patient Active Problem List Diagnosis Decompensated cirrhosis ([facility]) NADIYA (acute kidney injury) ([facility]) Alcohol use disorder Metabolic encephalopathy Hypertension Other hyperlipidemia Thrombocytopenia ([facility]) Renal mass, left Abdominal pain [...] NAGMA related to diarrhea No Indication for MOLD 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 Discussed with Consult Staff. Ignacio Queen MD Renal Fellow Pager # [phone] Chief Complaint No chief complaint on file. [...] TIBC , FERRITIN No results found for: [id number] , FOLATE Lab Results Component Value Date [...] CRUR No results found for: MICROALBUR , [id number] In addition to the above an extensive [...] 5.3 (H) 10/06/2024 No results found for: [id number] PLAN Patient seen labs reviewed Unclear baseline serum creat Recent episode of acute kidney injury requiring hospitalization Now has [id number] episode of NADIYA Underwent paracentesis 3 days [...] team Colten Huertas MD, KISHOR LIN FNKF tuna purse seiner Div. of Nephrology [facility] E-mail: [email or web address] * Jerad Hughes MD - 10/06/2024 9:28 AM EDTAssociated Order(s): IP CONSULT TO [facility] CONS[facility] NOTE Name: Julien Gilbert CSN: [id number] Consulted by: Angie Blanchard MD Reason for Consult: Decompensated Cirrhosis History of Present Illness: Julien Gilbert is a 39 y.o. with history of decompensated EtOH cirrhosis (complicated by EV, HRS, ascites, HE), HTN, and CKD. Patient admitted as transfer from [facility] ED with confusion and lethargy. Diagnostic [...] to diarrhea. Patient was recently referred to [facility] for liver transplant evaluation. Patient was evaluated by transplant manager social services on 09/25/2024 and it was determined that [...] verbalize understanding. Transported via wheelchair to the [facility] to bepicked up for a lyft. 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 Bedside report received from stores laborer, RN. Pt placed on telemetry, serial vital signs set up. Access site: RRA. Site is soft, no bleeding/hematoma, [address] Sheath removed in stores laborer at 1402, TR band placed to [...] EDT Pt arrived with and admitted into [facility] from [facility] with AMS. Merlene paged to the bedside at this time. documented in this encounter Miscellaneous Notes * Plan of Care - Inocente Morales DO - 10/17/2024 10:00 AM EDT Brief Psychiatry Plan of Care Note: - Was planning to see pt today to discuss change of sertraline to fluoxetine. Pt seen walking in the hallway to the [facility]. Pt reports he's going home today and [...] Patient will remain free of falls Goal: [place] Precautions Outcome: Progressing Problem: Daily Care Goal: Daily care needs are met Description: Assess and monitor ability to perform self care and identify potential discharge needs. Outcome: Progressing * Care Coordination - Kandy Fuentes - 10/16/2024 11:33 AM EDT [facility] Case Management/Social Work Department Progress [...] NP Home Pharmacy: [facility] [address] [place], [place] - [address] [address] [facility] [address] [place] [address] Medical Insurance Coverage: Payor: [facility] / Plan: [facility] / Product Type: *No Producttype* [...] Patient will remain free of falls Goal: [place] Precautions Outcome: Progressing Problem: Daily Care [...] Patient will remain free of falls Goal: [place] Precautions Outcome: Progressing Problem: Daily Care [...] Alcoholic cirrhosis of liver (CMS-HCC), Esophageal varices ([facility]), Hepatorenal syndrome ([facility]), Hypertension, Other hyperlipidemia (07/26/2024), Renal cell carcinoma ([facility]), Thrombocytopenia ([facility]), and Thyroid disease. PCP: Enedina Mcguire NP Home Pharmacy: [facility] [address] [place] [address] [place] [address] [facility] [address] [facility] [id number] Medical Insurance Coverage: Payor: [facility] / Plan: [facility] / Product Type: *No Producttype* [...] Patient will remain free of falls Goal: [place] Precautions Outcome: Progressing Problem: Daily Care [...] AM EDT [facility] Case Management/Social Work Department Progress Note Patient Information Patient Name: Julien Gilbert Hospital day: 9 Inpatient/Observation: Inpatient Level of Care: kinsey Admit date: 10/05/2024 Admission diagnosis: AMS PMH: has a past medical history of Alcoholic cirrhosis of liver (CMS-HCC), Esophageal varices ([facility]), Hepatorenal syndrome ([facility]), Hypertension, Other hyperlipidemia (07/26/2024), Renal cell carcinoma ([facility]), Thrombocytopenia ([facility]), and Thyroid disease. PCP: Enedina Mcguire NP Home Pharmacy: [facility] [address] [place] [address] [address] [facility] [address] [facility] [id number] Medical Insurance Coverage: Payor: [facility] / Plan: [facility] / Product Type: *No Producttype* / Other Pertinent Information RN/CM received update from team and completed chart review. Pt is not medically ready for discharge. Patient to get left HC today and repeat renal panel. Discharge Plan Anticipated discharge plan: home Anticipated discharge date: 10/15/24 CM/SW will continue to follow and remain available for discharge planning needs. Kandy [facility] * Plan of Care - Anjelica [...] AM EDT [facility] Case Management/Social Work Department Progress Note Patient Information Patient Name: Julien Gilbert Hospital day: 8 Inpatient/Observation: Inpatient Level of Care: blue Admit date: 10/05/2024 Admission diagnosis: AMS PMH: has a past medical history of Alcoholic cirrhosis of liver (CMS-HCC), Alcoholic hepatitis, Esophageal varices ([facility]), Hepatorenal syndrome ([facility]), Hypertension, Other hyperlipidemia (07/26/2024), Renal cell carcinoma (CMS-HCC), Thrombocytopenia ([facility]), and Thyroid disease. PCP: Enedina Mcguire NP Home Pharmacy: [facility] [address] [place] [id number] [facility] [address] [facility] [id number] Medical Insurance Coverage: Payor: [facility] / Plan: [facility] / Product Type: *No Producttype* [...] PM EDT [facility] Case Management/Social Work Department Progress Note Patient Information Patient Name: Julien Gilbert Hospital day: 5 Inpatient/Observation: Inpatient Level of Care: blue Admit date: 10/05/2024 Admission diagnosis: AMS PMH: has a past medical history of Alcoholic cirrhosis of liver (CMS-HCC), Alcoholic hepatitis, Esophageal varices ([facility]), Hepatorenal syndrome ([facility]), Hypertension, Other hyperlipidemia (07/26/2024), Renal cell carcinoma ([facility]), Thrombocytopenia ([facility]), and Thyroid disease. PCP: Enedina Mcguire NP Home Pharmacy: [facility] [address] [place], [place] [address] [place] [address] [place] [address] [facility] [address] [facility] [id number] Medical Insurance Coverage: Payor: [facility] / Plan: [facility] / Product Type: *No Producttype* [...] Patient will remain free of falls Goal: [place] Precautions Outcome: Progressing Problem: Daily Care [...] Patient will remain free of falls Goal: [place] Precautions Outcome: Progressing Problem: Daily Care [...] of liver (CMS-HCC), Alcoholic hepatitis, Esophageal varices ([facility]), Hepatorenal syndrome ([facility]), Hypertension, Other hyperlipidemia (07/26/2024), Renal cell carcinoma ([facility]), Thrombocytopenia ([facility]), and Thyroid disease. PCP: Enedina Mcguire NP Home Pharmacy: [facility] [address] [place] [address] [facility] [address] [facility] [phone] Medical Insurance Coverage: Payor: [facility] / Plan: [facility] / Product Type: *No Producttype* [...] PM EDT [facility] Case Management/Social Work Department Progress [...] NP Home Pharmacy: [facility] [address] [place] [address] [place] [address] [facility] [address] [facility] [address] Medical Insurance Coverage: Payor: [facility] / Plan: [facility] / Product Type: *No Producttype* [...] PM EDT [facility] Case Management/Social Work Department Progress [...] NP Home Pharmacy: [facility] [place] [address] [place] [address] [facility] [place] [address] [facility] [address] [facility] [phone] Medical Insurance Coverage: Payor: [facility] / Plan: [facility] / Product Type: *No Producttype* [...] Patient will remain free of falls Goal: [place] Precautions Outcome: Progressing Problem: Daily Care [...] IGG ANTIBODY Routine 10/07/2024 6:37 PM EDT [id number] (AAT) QUANTITATION & MUTATION Routine 10/07/2024 6:37 [...] Routine 10/07/2024 6:19 PM EDT US DUPLEX [id number] COMPLETE Routine 10/07/2024 3:48 PM EDT US [...] 10/06/2024 4:01 AM EDT UPPER RESPIRATORY VIRAL/BACTERIAL PANEL-CARPENTER FORM ONLY Routine 10/06/2024 3:12 AM EDT XR [...] - 146 mmol/L 10/17/2024 7:02 AM EDT [facility] Potassium 3.4(L) 3.5 - 5.3 mmol/L 10/17/2024 7:02 AM EDT [facility] Chloride 104 98 - 110 mmol/L 10/17/2024 7:02 AM EDT [facility] CO2 18(L) 21 - 33 mmol/L 10/17/2024 7:02 AM EDT [facility] Anion Gap 11 3 - 16 mmol/L 10/17/2024 7:02 AM EDT [facility] BUN 54(H) 7 - 25 mg/dL 10/17/2024 7:02 AM EDT [facility] Creatinine 2.88(H) 0.60 - 1.30 mg/dL 10/17/2024 7:02 AM EDT [facility] Glucose 127(H) 70 - 100 mg/dL 10/17/2024 7:02 AM EDT [facility] Calcium 8.2(L) 8.6 - 10.3 mg/dL 10/17/2024 7:02 AM EDT [facility] Phosphorus 4.5 2.1 - 4.7 mg/dL 10/17/2024 7:02 AM EDT [facility] Albumin 3.1(L) 3.5 - 5.7 g/dL 10/17/2024 7:02 AM EDT [facility] Osmolality, Calculated 292 278 - 305 mOsm/kg 10/17/2024 7:02 AM EDT [facility] EGFR 27 10/17/2024 7:02 AM EDT [facility] Comment:As of 2021, the estimated [...] Final Result Performing Organization Address [facility] Co de Phone Number [facility] [address] [facility]. [address] * (ABNORMAL) Protime-INR (10/16/2024 6:31 AM EDT) Protime 22.5(H) 12.1 - 15.1 seconds 10/16/2024 8:04 AM EDT [facility] INR 1.9(H) 0.9 - 1.1 [...] Final Result Performing Organization Address [facility] Co de Phone Number [facility] [address] * (ABNORMAL) Hepatic Function Panel (10/16/2024 6:31 AM EDT) Total Bilirubin 7.6(H) 0.0 - 1.5 mg/dL 10/16/2024 7:24 AM EDT [facility] Bilirubin, Direct 3.97(H) 0.00 - 0.40 mg/dL 10/16/2024 7:24 AM EDT [facility] AST 45(H) 13 - 39 U/L 10/16/2024 7:24 AM EDT [facility] ALT 23 7 - 52 U/L 10/16/2024 7:24 AM EDT [facility] Alkaline Phosphatase 137(H) 36 - 125 U/L 10/16/2024 7:24 AM EDT [facility] Total Protein 5.1(L) 6.4 - 8.9 g/dL 10/16/2024 7:24 AM EDT [facility] Albumin 3.4(L) 3.5 - 5.7 g/dL 10/16/2024 7:24 AM EDT [facility] Bilirubin, Indirect 3.63(H) 0.00 - 1.10 mg/dL 10/16/2024 7:24 AM EDT [facility] Plasma 10/16/2024 6:31 AM EDT 10/16/2024 6:56 AM EDT Eileen Schroeder MD, PhD LAB BLOOD ORDERABLES Final Result Performing Organization Address [facility] Co de Phone Number [facility] [address] * Magnesium (10/16/2024 6:31 AM EDT) Magnesium 2.1 1.5 - 2.5 mg/dL 10/16/2024 7:24 AM EDT [facility] Plasma 10/16/2024 6:31 AM EDT 10/16/2024 6:56 AM EDT Eileen Schroeder MD, PhD LAB BLOOD ORDERABLES Final Result Performing Organization Address City/[facility]/ZIP Co de Phone Number [facility] [address] * (ABNORMAL) Renal Function Panel w/EGFR (10/16/2024 6:31 AM EDT) Sodium 135 133 - 146 mmol/L 10/16/2024 7:24 AM EDT [facility] Potassium 3.7 3.5 - 5.3 mmol/L 10/16/2024 7:24 AM EDT [facility] Chloride 106 98 - 110 mmol/L 10/16/2024 7:24 AM EDT [facility] CO2 16(L) 21 - 33 mmol/L 10/16/2024 7:24 AM EDT [facility] Anion Gap 13 3 - 16 mmol/L 10/16/2024 7:24 AM EDT [facility] BUN 55(H) 7 - 25 mg/dL 10/16/2024 7:24 AM EDT [facility] Creatinine 3.20(H) 0.60 - 1.30 mg/dL 10/16/2024 7:24 AM EDT [facility] Glucose 121(H) 70 - 100 mg/dL 10/16/2024 7:24 AM EDT [facility] Calcium 8.5(L) 8.6 - 10.3 mg/dL 10/16/2024 7:24 AM EDT [facility] Phosphorus 4.2 2.1 - 4.7 mg/dL 10/16/2024 7:24 AM EDT [facility] Albumin 3.4(L) 3.5 - 5.7 g/dL 10/16/2024 7:24 AM EDT [facility] Osmolality, Calculated 296 278 - 305 mOsm/kg 10/16/2024 7:24 AM EDT [facility] EGFR 24 10/16/2024 7:24 AM EDT [facility] Comment:As of 2021, the estimated [...] MD, PhD LAB BLOOD ORDERABLES Final Result [facility] [address] [place] [address], [facility] * (ABNORMAL) CBC (10/16/2024 6:31 AM EDT) WBC 5.8 3.8 - 10.8 10E3/uL 10/16/2024 8:00 AM EDT [facility] RBC 2.16(L) 4.20 - 5.80 10E6/uL 10/16/2024 8:00 AM EDT [facility] Hemoglobin 7.7(L) 13.2 - 17.1 g/dL 10/16/2024 8:00 AM EDT [facility] Hematocrit 22.1(L) 38.5 - 50.0 % 10/16/2024 8:00 AM EDT [facility] MCV 102.3(H) 80.0 - 100.0 fL 10/16/2024 8:00 AM EDT [facility] MCH 35.7(H) 27.0 - 33.0 pg 10/16/2024 8:00 AM EDT [facility] MCHC 34.9 32.0 - 36.0 g/dL 10/16/2024 8:00 AM EDT [facility] RDW 17.7(H) 11.0 - 15.0 % 10/16/2024 8:00 AM EDT [facility] Platelets 43(L) 140 - 400 10E3/uL 10/16/2024 8:00 AM EDT [facility] Comment: Specimen checked for clots. None detected. Slide Reviewed for PLT Clumps. None Seen. Platelet Estimate Decreased 10/16/2024 8:00 AM EDT [facility] MPV 8.6 7.5 - 11.5 fL 10/16/2024 8:00 AM EDT [facility] Whole Blood 10/16/2024 6:31 AM EDT 10/16/2024 6:57 AM EDT Narrative [facility] - 10/16/2024 8:00 AM EDT Peripheral blood smear was scanned per review criteria approved by the laboratory medical insurance verifier. us Eileen Schroeder MD, PhD LAB BLOOD ORDERABLES Final Result [facility] [address] [place] [address], [facility] * CARISA Rhythm Strip - Scan (10/15/2024 8:02 PM EDT) us Scanning Uchhim SCAN DOCS - NO RESULTS Final Res ult * CARISA Rhythm Strip - Scan (10/15/2024 8:02 PM EDT) us Scanning Uchhim SCAN DOCS - NO RESULTS Final Res ult * Prepare Platelets, leukoreduced, 1 Units (10/15/2024 6:16 AM EDT) Product Code L9135W23 [facility] Unit Number [id number] [facility]LL Dispense Status Presumed Transfused_PT HCLL Blood Expiration Date HCLL Coding System [id number] [facility] Blood Bank Product us Eleazar Nguyễn MD BLOOD BANK PRODUCT ORDE LIL[place] Final Result [facility] * Prepare Fresh Frozen Plasma, 1 Units (10/15/2024 6:15 AM EDT) Product Code S5400Y74 [facility] Unit Number [id number] [facility] Dispense Status Presumed Transfused_PT [facility]LL Blood Expiration Date HCLL Coding System [id number] [facility] Blood Bank Product us Eleazar Nguyễn MD BLOOD BANK PRODUCT ORDE [place] Final Result [facility] * (ABNORMAL) Protime-INR (10/15/2024 6:08 AM EDT) Protime 21.6(H) 12.1 - 15.1 seconds 10/15/2024 6:36 AM EDT [facility] INR 1.8(H) 0.9 - 1.1 10/15/2024 6:36 AM EDT [facility] Comment: RECOMMENDED THERAPEUTIC RANGES USING INR : Stable oral anticoagulant therapy: 2.0 - 3.0 Mechanical prosthetic heart valve: 2.5 - 3.5 Recurrent acute myocardial infarction: 2.5 - 3.5 Plasma 10/15/2024 6:08 AM EDT 10/15/2024 6:17 AM EDT us Eileen Schroeder MD, PhD LAB BLOOD ORDERABLES Final Result Performing Organization Address City/[facility]/ZIP Co de Phone Number [facility] [address] * (ABNORMAL) Hepatic Function Panel (10/15/2024 6:08 AM EDT) Total Bilirubin 7.1(H) 0.0 - 1.5 mg/dL 10/15/2024 6:45 AM EDT [facility] Bilirubin, Direct 3.77(H) 0.00 - 0.40 mg/dL 10/15/2024 6:45 AM EDT [facility] AST 39 13 - 39 U/L 10/15/2024 6:45 AM EDT [facility] ALT 22 7 - 52 U/L 10/15/2024 6:45 AM EDT [facility] Alkaline Phosphatase 115 36 - 125 U/L 10/15/2024 6:45 AM EDT [facility] [facility] Total Protein 4.8(L) 6.4 - 8.9 g/dL 10/15/2024 6:45 AM EDT [facility] Albumin 3.2(L) 3.5 - 5.7 g/dL 10/15/2024 6:45 AM EDT [facility] Bilirubin, Indirect 3.33(H) 0.00 - 1.10 mg/dL 10/15/2024 6:45 AM EDT [facility] Plasma 10/15/2024 6:08 AM EDT 10/15/2024 6:17 AM EDT Eileen Schroeder MD, PhD LAB BLOOD ORDERABLES Final Result Performing Organization Address [facility] Co de Phone Number [facility] [address] * Magnesium (10/15/2024 6:08 AM EDT) Magnesium 1.8 1.5 - 2.5 mg/dL 10/15/2024 6:45 AM EDT [facility] Plasma 10/15/2024 6:08 AM EDT 10/15/2024 6:17 AM EDT Eileen Schroeder MD, PhD LAB BLOOD ORDERABLES Final Result Performing Organization Address [facility] de Phone Number [facility] [address] * (ABNORMAL) Renal Function Panel w/EGFR (10/15/2024 6:08 AM EDT) Sodium 135 133 - 146 mmol/L 10/15/2024 6:45 AM EDT [facility] Potassium 3.4(L) 3.5 - 5.3 mmol/L 10/15/2024 6:45 AM EDT [facility] Chloride 107 98 - 110 mmol/L 10/15/2024 6:45 AM EDT [facility] CO2 17(L) 21 - 33 mmol/L 10/15/2024 6:45 AM EDT [facility] Anion Gap 11 3 - 16 mmol/L 10/15/2024 6:45 AM EDT [facility] BUN 55(H) 7 - 25 mg/dL 10/15/2024 6:45 AM EDT [facility] Creatinine 2.88(H) 0.60 - 1.30 mg/dL 10/15/2024 6:45 AM EDT [facility] Glucose 125(H) 70 - 100 mg/dL 10/15/2024 6:45 AM EDT [facility] Calcium 8.4(L) 8.6 - 10.3 mg/dL 10/15/2024 6:45 AM EDT [facility] Phosphorus 3.9 2.1 - 4.7 mg/dL 10/15/2024 6:45 AM EDT [facility] Albumin 3.2(L) 3.5 - 5.7 g/dL 10/15/2024 6:45 AM EDT [facility] Osmolality, Calculated 297 278 - 305 mOsm/kg 10/15/2024 6:45 AM EDT [facility] EGFR 27 10/15/2024 6:45 AM EDT [facility] Comment:As of 2021, the estimated [...] MD, PhD LAB BLOOD ORDERABLES Final Result [facility] [address] [place] [address], [facility] * (ABNORMAL) CBC (10/15/2024 6:08 AM EDT) Pathologist [facility] WBC 4.6 3.8 - 10.8 10E3/uL 10/15/2024 6:51 AM EDT [facility] RBC 1.94(L) 4.20 - 5.80 10E6/uL 10/15/2024 6:51 AM EDT [facility] Hemoglobin 7.1(L) 13.2 - 17.1 g/dL 10/15/2024 6:51 AM EDT [facility] Hematocrit 19.6(L) 38.5 - 50.0 % 10/15/2024 6:51 AM EDT [facility] MCV 100.8(H) 80.0 - 100.0 fL 10/15/2024 6:51 AM EDT [facility] MCH 36.7(H) 27.0 - 33.0 pg 10/15/2024 6:51 AM EDT [facility] MCHC 36.4(H) 32.0 - 36.0 g/dL 10/15/2024 6:51 AM EDT [facility] RDW 17.3(H) 11.0 - 15.0 % 10/15/2024 6:51 AM EDT [facility] Platelets 34(L) 140 - 400 10E3/uL 10/15/2024 6:51 AM EDT [facility] Comment:Specimen checked for clots. None detected. MPV 8.7 7.5 - 11.5 fL 10/15/2024 6:51 AM EDT [facility] Whole Blood 10/15/2024 6:08 AM EDT 10/15/2024 6:17 AM EDT us Eileen Schroeder MD, PhD LAB BLOOD ORDERABLES Final Result [facility] [address] [place] [address], [facility] * PRA-HLA Ab Screen (Cytotoxic) (10/15/2024 6:08 AM EDT) Pathologist [facility] The request and specimen(s) for this test have been received and transported to the [facility] at [address] [place] [address]. The [facility] will report results directly to the client. 10/15/2024 6:42 AM EDT [facility] Comment:The request and spec imen(s) for this test have been received and transported to the [facility] at [address] [place] [address]. The [facility] will report results directly to the client. Serum 10/15/2024 6:08 AM EDT 10/15/2024 6:42 AM EDT us Cosmo Pacheco MD LAB BLOOD ORDERABLES Final Resul t [facility] [address] [place] [address] * LEFT HEART CATH (10/14/2024 2:09 PM EDT) 10/14/2024 11:4 7 AM EDT Narrative [facility] - 10/14/2024 9:27 PM EDT *[facility]* Cardiac Learning And Development Associate [address] [place] [address] CATHETERIZATION LAB STUDY Patient: Julien Gilbert Age: [...] manner. 3. Right radial artery access. A [id number] Glidesheath - Slender - .021 sheath was [...] + !LV pressure s/d, ed !, 22, dP/pc=7278gf Hg/s! + + + !Aortic pressure s/d (m)!106/58 (75) ! + + + ATTESTATION: Dr. Matta was present for the entire procedure. Dr. Jay Quan was the initial author of this report. Prepared and electronically signed by Irving Matta MD [id number] Procedure Note Irving Matta MD - 10/14/2024 *[facility]* Cardiac Learning And Development Associate [address] [place] [id number] CATHETERIZATION LAB STUDY Patient: Julien Gilbert Age: 39 Study Date: 10/14/2024 Gender: M Study Time: 11:47:07AM : 1985 HT/WT: 193cm / 120kg Performing Physician: Irving Matta MD Ordering Physician: Julian Mckenzie MD Referring Physician: Gerri Peterson Fellow: [facility] Procedures performed: - Left heart catheterization. [...] manner. 3. Right radial artery access. A [id number] Glidesheath - Slender - .021sheath was advanced [...] complications. Contrast: Omnipaque 350 25ml (total dose). [id number] 125ml (wasted). Radiation: Fluoroscopy time: 15min. Total [...] + !LV pressure s/d, ed !112/ 22, dP/zq=8974vi Hg/s! + + + !Aortic pressure s/d (m)!106/58 (75) ! + + + ATTESTATION: Dr. Matta was present for the entire procedure. Dr. Jay Quan wasthe initial author of this report. Prepared and electronically signed by Irving Matta MD [id number] [place] [id number] Final Result Performing Organization Address [facility] de Phone Number [facility] * Transfuse Fresh Frozen Plasma Transfusion Rate: Per dept routine (10/14/2024 2:08 PM EDT) us Eleazar Nguyễn MD NURSING TREATMENT ORDER PAL - BLOOD ADMIN Final Result Performing Organization Address [facility] de Phone Number EXTERNAL * Transfuse Fresh Frozen Plasma Transfusion Rate: Per dept routine, 1 Units (10/14/2024 2:08 PM EDT) Eleazar Nguyễn MD NURSING TREATMENT ORDER PAL - BLOOD ADMIN Final Result Performing Organization Address [facility]/ZIP Co de Phone Number EXTERNAL * Transfuse Platelets Transfusion Rate: Per dept routine (10/14/2024 12:43 PM EDT) us Eleazar Nguyễn MD NURSING TREATMENT ORDER PAL - BLOOD ADMIN Final Result Performing Organization Address [facility] Co de Phone Number EXTERNAL * Transfuse Platelets Transfusion Rate: Per dept routine, 1 Units (10/14/2024 12:43 PM EDT) us Eleazar Nguyễn MD NURSING TREATMENT ORDER PAL - BLOOD ADMIN Final Result Performing Organization Address City/[facility] Co de Phone Number EXTERNAL * Antibody Screen (10/14/2024 8:21 AM EDT) Antibody Screen Negative 10/14/2024 9:11 AM EDT [facility] Blood 10/14/2024 8:21 AM EDT 10/14/2024 8:33 AM EDT Narrative [facility] - 10/14/2024 9:26 AM EDT Testing performed by [facility] Transfusion Service us Eleazar Nguyễn MD BLOOD BANK TEST ORDERAB LES Final Result Performing Organization Address [facility] Co de Phone Number [facility] [address] [facility]. [address] * ABO/Rh (10/14/2024 8:21 AM EDT) ABO Grouping O 10/14/2024 8:55 AM EDT [facility] Rh Type Positive 10/14/2024 8:55 AM EDT [facility] Blood 10/14/2024 8:21 AM EDT 10/14/2024 8:33 AM EDT us Eleazar Nguyễn MD BLOOD BANK TEST ORDERAB LES Final Result Performing Organization Address [facility] Co de Phone Number [facility] [address] * (ABNORMAL) Protime-INR (10/14/2024 2:53 AM [...] BLOOD ORDERABLES Final Result [facility] [address] [id number], [facility] * (ABNORMAL) Hepatic Function Panel (10/14/2024 2:53 AM EDT) Total Bilirubin 7.2(H) 0.0 - 1.5 mg/dL 10/14/2024 4:45 AM EDT [facility] Bilirubin, Direct 3.86(H) 0.00 - 0.40 mg/dL 10/14/2024 4:45 AM EDT [facility] AST 41(H) 13 - 39 U/L 10/14/2024 4:45 AM EDT [facility] ALT 22 7 - 52 U/L 10/14/2024 4:45 AM EDT [facility] Alkaline Phosphatase 119 36 - 125 U/L 10/14/2024 4:45 AM EDT [facility] Total Protein 4.6(L) 6.4 - 8.9 g/dL 10/14/2024 4:45 AM EDT [facility] Albumin 3.3(L) 3.5 - 5.7 g/dL 10/14/2024 4:45 AM EDT [facility] Bilirubin, Indirect 3.34(H) 0.00 - 1.10 mg/dL 10/14/2024 4:45 AM EDT [facility] Plasma 10/14/2024 2:53 AM EDT 10/14/2024 4:16 AM EDT us Eileen Schroeder MD, PhD LAB BLOOD ORDERABLES Final Result Performing Organization Address City/[facility]/ZIP Co de Phone Number [facility] [address] * Magnesium (10/14/2024 2:53 AM EDT) Magnesium 1.9 1.5 - 2.5 mg/dL 10/14/2024 4:45 AM EDT [facility] Plasma 10/14/2024 2:53 AM EDT 10/14/2024 4:16 AM EDT us Eileen Schroeder MD, PhD LAB BLOOD ORDERABLES Final Result Performing Organization Address [facility] Co de Phone Number [facility] [address] * (ABNORMAL) Renal Function Panel w/EGFR (10/14/2024 2:53 AM EDT) Sodium 136 133 - 146 mmol/L 10/14/2024 4:45 AM EDT [facility] Potassium 3.5 3.5 - 5.3 mmol/L 10/14/2024 4:45 AM EDT [facility] Chloride 107 98 - 110 mmol/L 10/14/2024 4:45 AM EDT [facility] CO2 16(L) 21 - 33 mmol/L 10/14/2024 4:45 AM EDT [facility] Anion Gap 13 3 - 16 mmol/L 10/14/2024 4:45 AM EDT [facility] BUN 55(H) 7 - 25 mg/dL 10/14/2024 4:45 AM EDT [facility] Creatinine 3.01(H) 0.60 - 1.30 mg/dL 10/14/2024 4:45 AM EDT [facility] Glucose 95 70 - 100 mg/dL 10/14/2024 4:45 AM EDT [facility] Calcium 8.5(L) 8.6 - 10.3 mg/dL 10/14/2024 4:45 AM EDT [facility] Phosphorus 4.4 2.1 - 4.7 mg/dL 10/14/2024 4:45 AM EDT [facility] Albumin 3.3(L) 3.5 - 5.7 g/dL 10/14/2024 4:45 AM EDT [facility] Osmolality, Calculated 297 278 - 305 mOsm/kg 10/14/2024 4:45 AM EDT [facility] EGFR 26 10/14/2024 4:45 AM EDT [facility] Comment:As of 2021, the estimated [...] MD, PhD LAB BLOOD ORDERABLES Final Result [facility] [address] [id number] * (ABNORMAL) CBC (10/14/2024 2:53 AM EDT) WBC 5.5 3.8 - 10.8 10E3/uL 10/14/2024 5:00 AM EDT [facility] RBC 2.09(L) 4.20 - 5.80 10E6/uL 10/14/2024 5:00 AM EDT [facility] Hemoglobin 7.6(L) 13.2 - 17.1 g/dL 10/14/2024 5:00 AM EDT [facility] Hematocrit 21.3(L) 38.5 - 50.0 % 10/14/2024 5:00 AM EDT [facility] MCV 101.7(H) 80.0 - 100.0 fL 10/14/2024 5:00 AM EDT [facility] MCH 36.3(H) 27.0 - 33.0 pg 10/14/2024 5:00 AM EDT [facility] MCHC 35.7 32.0 - 36.0 g/dL 10/14/2024 5:00 AM EDT [facility] RDW 17.6(H) 11.0 - 15.0 % 10/14/2024 5:00 AM EDT [facility] Platelets 35(L) 140 - 400 10E3/uL 10/14/2024 5:00 AM EDT [facility] Comment: Specimen checked for clots. None detected. Slide Reviewed for PLT Clumps. None Seen. MPV 8.5 7.5 - 11.5 fL 10/14/2024 5:00 AM EDT [facility] Whole Blood 10/14/2024 2:53 AM EDT 10/14/2024 4:17 AM EDT us Eileen Schroeder MD, PhD LAB BLOOD ORDERABLES Final Result [facility] [address] * Cardiac Cath Documents Scan (10/14/2024 [...] mL of GADOBUTROL 1 MMOL/ML INTRAVENOUS SYRINGE ([facility]) administered intravenously COMPARISON: CT 09/03/2024. Ultrasound [...] mL of GADOBUTROL 1 MMOL/ML INTRAVENOUS SYRINGE ([facility])administered intravenously COMPARISON: CT 09/03/2024. Ultrasound 10/07/2024. [...] (ABNORMAL) Protime-INR (10/13/2024 5:35 AM EDT) Pathologist [facility] Protime 24.4(H) 12.1 - 15.1 seconds 10/13/2024 6:12 AM EDT [facility] INR 2.1(H) 0.9 - 1.1 10/13/2024 6:12 AM EDT [facility] Comment: RECOMMENDED THERAPEUTIC RANGES USING INR : Stable oral anticoagulant therapy: 2.0 - 3.0 Mechanical prosthetic heart valve: 2.5 - 3.5 Recurrent acute myocardial infarction: 2.5 - 3.5 Plasma 10/13/2024 5:35 AM EDT 10/13/2024 5:52 AM EDT us Eileen Schroeder MD, PhD LAB BLOOD ORDERABLES Final Result [facility] [address] * (ABNORMAL) Hepatic Function Panel (10/13/2024 5:35 AM EDT) Total Bilirubin 6.5(H) 0.0 - 1.5 mg/dL 10/13/2024 6:30 AM EDT [facility] Bilirubin, Direct 3.53(H) 0.00 - 0.40 mg/dL 10/13/2024 6:30 AM EDT [facility] AST 42(H) 13 - 39 U/L 10/13/2024 6:30 AM EDT [facility] ALT 19 7 - 52 U/L 10/13/2024 6:30 AM EDT [facility] Alkaline Phosphatase 108 36 - 125 U/L 10/13/2024 6:30 AM EDT [facility] Total Protein 4.4(L) 6.4 - 8.9 g/dL 10/13/2024 6:30 AM EDT [facility] Albumin 3.1(L) 3.5 - 5.7 g/dL 10/13/2024 6:30 AM EDT [facility] Bilirubin, Indirect 2.97(H) 0.00 - 1.10 mg/dL 10/13/2024 6:30 AM EDT [facility] Plasma 10/13/2024 5:35 AM EDT 10/13/2024 5:52 AM EDT Eileen Schroeder MD, PhD LAB BLOOD ORDERABLES Final Result Performing Organization Address [facility]/ZIP Co de Phone Number [facility] [address] [facility]. [address] * Magnesium (10/13/2024 5:35 AM EDT) Magnesium 2.0 1.5 - 2.5 mg/dL 10/13/2024 6:30 AM EDT [facility] Plasma 10/13/2024 5:35 AM EDT 10/13/2024 5:52 AM EDT Eileen Schroeder MD, PhD LAB BLOOD ORDERABLES Final Result Performing Organization Address [facility]/ZIP Co de Phone Number [facility] [address] * (ABNORMAL) Renal Function Panel w/EGFR (10/13/2024 5:35 AM EDT) Sodium 134 133 - 146 mmol/L 10/13/2024 6:30 AM EDT [facility] Potassium 3.7 3.5 - 5.3 mmol/L 10/13/2024 6:30 AM EDT [facility] Chloride 109 98 - 110 mmol/L 10/13/2024 6:30 AM EDT [facility] CO2 14(L) 21 - 33 mmol/L 10/13/2024 6:30 AM EDT [facility] Anion Gap 11 3 - 16 mmol/L 10/13/2024 6:30 AM EDT [facility] BUN 54(H) 7 - 25 mg/dL 10/13/2024 6:30 AM EDT [facility] Creatinine 2.99(H) 0.60 - 1.30 mg/dL 10/13/2024 6:30 AM EDT [facility] Glucose 116(H) 70 - 100 mg/dL 10/13/2024 6:30 AM EDT [facility] Calcium 8.3(L) 8.6 - 10.3 mg/dL 10/13/2024 6:30 AM EDT [facility] Phosphorus 4.5 2.1 - 4.7 mg/dL 10/13/2024 6:30 AM EDT [facility] Albumin 3.1(L) 3.5 - 5.7 g/dL 10/13/2024 6:30 AM EDT [facility] Osmolality, Calculated 294 278 - 305 mOsm/kg 10/13/2024 6:30 AM EDT [facility] EGFR 26 10/13/2024 6:30 AM EDT [facility] Comment:As of 2021, the estimated [...] MD, PhD LAB BLOOD ORDERABLES Final Result [facility] [address] [place] [address], [facility] * (ABNORMAL) CBC (10/13/2024 5:35 AM EDT) WBC 4.7 3.8 - 10.8 10E3/uL 10/13/2024 6:22 AM EDT [facility] RBC 2.06(L) 4.20 - 5.80 10E6/uL 10/13/2024 6:22 AM EDT [facility] Hemoglobin 7.4(L) 13.2 - 17.1 g/dL 10/13/2024 6:22 AM EDT [facility] Hematocrit 21.7(L) 38.5 - 50.0 % 10/13/2024 6:22 AM EDT [facility] MCV 105.4(H) 80.0 - 100.0 fL 10/13/2024 6:22 AM EDT [facility] MCH 35.9(H) 27.0 - 33.0 pg 10/13/2024 6:22 AM EDT [facility] MCHC 34.0 32.0 - 36.0 g/dL 10/13/2024 6:22 AM EDT [facility] RDW 18.5(H) 11.0 - 15.0 % 10/13/2024 6:22 AM EDT [facility] Platelets 35(L) 140 - 400 10E3/uL 10/13/2024 6:22 AM EDT [facility] Comment: CNV Specimen checked for clots. None detected. MPV 8.4 7.5 - 11.5 fL 10/13/2024 6:22 AM EDT [facility] Whole Blood 10/13/2024 5:35 AM EDT 10/13/2024 5:53 AM EDT us Eileen Schroeder MD, PhD LAB BLOOD ORDERABLES Final Result [facility] [address] [place], [place] [address] * (ABNORMAL) Ammonia (10/13/2024 5:35 AM EDT) Ammonia 203(HH) 27 - 90 ug/dL 10/13/2024 7:16 AM EDT [facility] Comment: HEMOLYSIS EVIDENT. RESULTS MAY BE INFLUENCED. Critical Result [id number] Called to and read back by: KEY MELO RN at: 10/13/2024 07:15:55 by:NISREEN Plasma 10/13/2024 5:35 AM EDT 10/13/2024 6:19 AM EDT us Ellis Mays DO LAB BLOOD ORDERABLES Final Resul t [facility] [address] [facility]. [address] * CARISA Rhythm Strip - Scan (10/12/2024 10:30 PM EDT) us Scanning [employer] SCAN DOCS - NO RESULTS Final Res ult * (ABNORMAL) Protime-INR (10/12/2024 5:44 AM EDT) Protime 25.7(H) 12.1 - 15.1 seconds 10/12/2024 6:12 AM EDT [facility] INR 2.3(H) 0.9 - 1.1 [...] Final Result Performing Organization Address [facility]/ZIP Co de Phone Number [facility] [address] * (ABNORMAL) Hepatic Function Panel (10/12/2024 5:44 AM EDT) Total Bilirubin 6.5(H) 0.0 - 1.5 mg/dL 10/12/2024 6:29 AM EDT [facility] Bilirubin, Direct 3.64(H) 0.00 - 0.40 mg/dL 10/12/2024 6:29 AM EDT [facility] AST 40(H) 13 - 39 U/L 10/12/2024 6:29 AM EDT [facility] ALT 19 7 - 52 U/L 10/12/2024 6:29 AM EDT [facility] Alkaline Phosphatase 99 36 - 125 U/L 10/12/2024 6:29 AM EDT [facility] Total Protein 4.2(L) 6.4 - 8.9 g/dL 10/12/2024 6:29 AM EDT [facility] Albumin 3.1(L) 3.5 - 5.7 g/dL 10/12/2024 6:29 AM EDT [facility] Bilirubin, Indirect 2.86(H) 0.00 - 1.10 mg/dL 10/12/2024 6:29 AM EDT [facility] Plasma 10/12/2024 5:44 AM EDT 10/12/2024 5:58 AM EDT Eileen Schroeder MD, PhD LAB BLOOD ORDERABLES Final Result Performing Organization Address [facility]/ZIP Co de Phone Number [facility] [address] [place] [address] * Magnesium (10/12/2024 5:44 AM EDT) Magnesium 1.9 1.5 - 2.5 mg/dL 10/12/2024 6:29 AM EDT [facility] Plasma 10/12/2024 5:44 AM EDT 10/12/2024 5:58 AM EDT Eileen Schroeder MD, PhD LAB BLOOD ORDERABLES Final Result Performing Organization Address [facility] Co de Phone Number [facility] [address] * (ABNORMAL) Renal Function Panel w/EGFR (10/12/2024 5:44 AM EDT) Sodium 135 133 - 146 mmol/L 10/12/2024 6:29 AM EDT [facility] Potassium 3.7 3.5 - 5.3 mmol/L 10/12/2024 6:29 AM EDT [facility] Chloride 109 98 - 110 mmol/L 10/12/2024 6:29 AM EDT [facility] CO2 17(L) 21 - 33 mmol/L 10/12/2024 6:29 AM EDT [facility] Anion Gap 9 3 - 16 mmol/L 10/12/2024 6:29 AM EDT [facility] BUN 52(H) 7 - 25 mg/dL 10/12/2024 6:29 AM T [facility] Creatinine 2.94(H) 0.60 - 1.30 mg/dL 10/12/2024 6:29 AM EDT [facility] Glucose 121(H) 70 - 100 mg/dL 10/12/2024 6:29 AM EDT [facility] Calcium 8.5(L) 8.6 - 10.3 mg/dL 10/12/2024 6:29 AM EDT [facility] Phosphorus 4.6 2.1 - 4.7 mg/dL 10/12/2024 6:29 AM EDT [facility] Albumin 3.1(L) 3.5 - 5.7 g/dL 10/12/2024 6:[facility] Osmolality, Calculated 295 278 - 305 mOsm/kg 10/12/2024 6:29 AM [facility] EGFR 27 10/12/2024 6:29 AM [facility] Comment:As of 2021, the estimated [...] MD, PhD LAB BLOOD ORDERABLES Final Result [facility] [address] [place], [place] [address] * (ABNORMAL) CBC (10/12/2024 5:44 AM EDT) WBC 3.3(L) 3.8 - 10.8 10E3/uL 10/12/2024 7:06 AM EDT [facility] RBC 1.95(L) 4.20 - 5.80 10E6/uL 10/12/2024 7:06 AM EDT [facility] Hemoglobin 7.2(L) 13.2 - 17.1 g/dL 10/12/2024 7:06 AM EDT [facility] Hematocrit 19.7(L) 38.5 - 50.0 % 10/12/2024 7:06 AM EDT [facility] MCV 101.2(H) 80.0 - 100.0 fL 10/12/2024 7:06 AM EDT [facility] [facility] MCH 37.0(H) 27.0 - 33.0 pg 10/12/2024 7:06 AM EDT [facility] MCHC 36.5(H) 32.0 - 36.0 g/dL 10/12/2024 7:06 AM EDT [facility] RDW 17.6(H) 11.0 - 15.0 % 10/12/2024 7:06 AM EDT [facility] Platelets 30(L) 140 - 400 10E3/uL 10/12/2024 7:06 AM EDT [facility] Comment: Specimen checked for clots. None detected. Slide Reviewed for PLT Clumps. None Seen. Platelet Estimate Decreased 10/12/2024 7:06 AM EDT [facility] MPV 8.3 7.5 - 11.5 fL 10/12/2024 7:06 AM EDT [facility] Whole Blood 10/12/2024 5:44 AM EDT 10/12/2024 5:58 AM EDT Narrative [facility] - 10/12/2024 7:06 AM EDT Peripheral blood smear was scanned per review criteria approved by the laboratory medical insurance verifier. us Eileen Schroeder MD, PhD LAB BLOOD ORDERABLES Final Result [facility] [address] [facility]. [address] * CARISA Rhythm Strip - Scan (10/11/2024 10:04 PM EDT) us Scanning [facility] SCAN DOCS - NO RESULTS Final Res ult * (ABNORMAL) Protime-INR (10/11/2024 3:02 AM EDT) Protime 26.8(H) 12.1 - 15.1 seconds 10/11/2024 3:30 AM EDT [facility] INR 2.4(H) 0.9 - 1.1 10/11/2024 3:30 AM EDT [facility] Comment: RECOMMENDED THERAPEUTIC RANGES USING INR : Stable oral anticoagulant therapy: 2.0 - 3.0 Mechanical prosthetic heart valve: 2.5 - 3.5 Recurrent acute myocardial infarction: 2.5 - 3.5 Plasma 10/11/2024 3:02 AM EDT 10/11/2024 3:08 AM EDT us Eileen Schroeder MD, PhD LAB BLOOD ORDERABLES Final Result Performing Organization Address City/[facility]/ZIP Co de Phone Number [facility] [address] [facility]. [address] * (ABNORMAL) Hepatic Function Panel (10/11/2024 3:02 AM EDT) Total Bilirubin 7.3(H) 0.0 - 1.5 mg/dL 10/11/2024 3:38 AM EDT [facility] Bilirubin, Direct 3.85(H) 0.00 - 0.40 mg/dL 10/11/2024 3:38 AM EDT [facility] AST 39 13 - 39 U/L 10/11/2024 3:38 AM EDT [facility] ALT 20 7 - 52 U/L 10/11/2024 3:38 AM EDT [facility] Alkaline Phosphatase 88 36 - 125 U/L 10/11/2024 3:38 AM EDT [facility] Total Protein 4.5(L) 6.4 - 8.9 g/dL 10/11/2024 3:38 AM EDT [facility] Albumin 3.3(L) 3.5 - 5.7 g/dL 10/11/2024 3:38 AM EDT [facility] Bilirubin, Indirect 3.45(H) 0.00 - 1.10 mg/dL 10/11/2024 3:38 AM EDT [facility] Plasma 10/11/2024 3:02 AM EDT 10/11/2024 3:08 AM EDT us Eileen Schroeder MD, PhD LAB BLOOD ORDERABLES Final Result Performing Organization Address [facility]/ZIP Co de Phone Number [facility] [address] * Magnesium (10/11/2024 3:02 AM EDT) Magnesium 2.0 1.5 - 2.5 mg/dL 10/11/2024 3:38 AM EDT [facility] Plasma 10/11/2024 3:02 AM EDT 10/11/2024 3:08 AM EDT Eileen Schroeder MD, PhD LAB BLOOD ORDERABLES Final Result [facility] [address] * (ABNORMAL) Renal Function Panel w/EGFR (10/11/2024 3:02 AM EDT) Sodium 134 133 - 146 mmol/L 10/11/2024 3:38 AM EDT [facility] Potassium 3.6 3.5 - 5.3 mmol/L 10/11/2024 3:38 AM EDT [facility] Chloride 108 98 - 110 mmol/L 10/11/2024 3:38 AM EDT [facility] CO2 16(L) 21 - 33 mmol/L 10/11/2024 3:38 AM EDT [facility] Anion Gap 10 3 - 16 mmol/L 10/11/2024 3:38 AM EDT [facility] BUN 49(H) 7 - 25 mg/dL 10/11/2024 3:38 AM EDT [facility] Creatinine 2.77(H) 0.60 - 1.30 mg/dL 10/11/2024 3:38 AM EDT [facility] Glucose 112(H) 70 - 100 mg/dL 10/11/2024 3:38 AM EDT [facility] Calcium 8.9 8.6 - 10.3 mg/dL 10/11/2024 3:38 AM EDT [facility] Phosphorus 3.5 2.1 - 4.7 mg/dL 10/11/2024 3:38 AM EDT [facility] Albumin 3.3(L) 3.5 - 5.7 g/dL 10/11/2024 3:38 AM EDT [facility] Osmolality, Calculated 292 278 - 305 mOsm/kg 10/11/2024 3:38 AM EDT [facility] EGFR 29 10/11/2024 3:38 AM EDT [facility] Comment:As of 2021, the estimated [...] MD, PhD LAB BLOOD ORDERABLES Final Result [facility] [address] [place] [address], [facility] * (ABNORMAL) CBC (10/11/2024 3:02 AM EDT) WBC 4.0 3.8 - 10.8 10E3/uL 10/11/2024 3:55 AM EDT [facility] RBC 2.11(L) 4.20 - 5.80 10E6/uL 10/11/2024 3:55 AM EDT [facility] Hemoglobin 7.7(L) 13.2 - 17.1 g/dL 10/11/2024 3:55 AM EDT [facility] Hematocrit 21.2(L) 38.5 - 50.0 % 10/11/2024 3:55 AM EDT [facility] MCV 100.5(H) 80.0 - 100.0 fL 10/11/2024 3:55 AM EDT [facility] MCH 36.4(H) 27.0 - 33.0 pg 10/11/2024 3:55 AM EDT [facility] MCHC 36.2(H) 32.0 - 36.0 g/dL 10/11/2024 3:55 AM EDT [facility] RDW 17.9(H) 11.0 - 15.0 % 10/11/2024 3:55 AM EDT [facility] Platelets 32(L) 140 - 400 10E3/uL 10/11/2024 3:55 AM EDT [facility] Comment: Specimen checked for clots. None detected. Slide Reviewed for PLT Clumps. None Seen. Platelet Estimate Decreased 10/11/2024 3:55 AM EDT [facility] MPV 8.1 7.5 - 11.5 fL 10/11/2024 3:55 AM EDT [facility] Whole Blood 10/11/2024 3:02 AM EDT 10/11/2024 3:08 AM EDT Narrative [facility] - 10/11/2024 3:55 AM EDT Peripheral blood smear was scanned per review criteria approved by the laboratory medical insurance verifier. us Eileen Schroeder MD, PhD LAB BLOOD ORDERABLES Final Result [facility] [address] [facility]. [address] * Vancomycin, random (10/11/2024 3:02 AM EDT) Vancomycin Random 13.4 ug/mL 10/11/2024 3:37 AM EDT [facility] Comment:Reference range not established for this test. Plasma 10/11/2024 3:02 AM EDT 10/11/2024 3:08 AM EDT us Jodi FreireD LAB BLOOD ORDERABLES Final Result Performing Organization Address [facility] Co de Phone Number [facility] [address] [facility]. [address] * IR Paracentesis incl imaging guide [...] diagnostic and therapeutic paracentesis. Bakari Wahl CNP, Prepress Specialist Procedure and Findings: The procedure was [...] Using ultrasound guidance, a 10 cm, 5-F canvs.co Centesis catheter was placed into the right [...] for diagnostic andtherapeutic paracentesis. Bakari Wahl CNP, Prepress Specialist Procedure and Findings: The procedure was [...] scan (10/10/2024 3:08 PM EDT) us Scanning [facility] SCAN DOCS - NO RESULTS Final Res ult * (ABNORMAL) Body fluid cell count (10/10/2024 1:51 PM EDT) Color, Fluid Yellow(A) Colorless, Pale Yellow 10/10/2024 5:29 PM EDT [facility] Clarity, Fluid Clear 10/10/2024 5:29 PM EDT [facility] Neutrophil %, Fluid 9 % 10/10/2024 5:29 PM EDT [facility] Lymphocytes %, Fluid 13 % 10/10/2024 5:29 PM EDT [facility] Mesothelial %, Fluid 6 % 10/10/2024 5:29 PM EDT [facility] Macrophage %, Fluid 72 % 10/10/2024 5:29 PM EDT [facility] RBC, Fluid 2,662 /uL 10/10/2024 4:41 PM EDT [facility] Total Nucleated Cells, Fluid 89 /uL 10/10/2024 4:41 PM EDT [facility] Comment:Total Nucleated Cell s represent WBCs and other nucleated cells in the fluid such as lining cells. Ascitic Fluid ABDOMEN / Unknown 1:51 PM EDT 10/10/2024 3:56 PM EDT Gerri Peterson MD BODY FLUIDS AND STOOLS ORDERABL ES Final Result Performing Organization Address [facility] de Phone Number [facility] [address] * Body Fluid Culture plus Stain (10/10/2024 1:51 PM EDT) Gram Stain Result Cytospin Results: [facility] Gram Stain Result Polymorphonuclear Leukocytes Seen; [facility] Gram Stain Result No Organisms Seen; [facility] Culture Result No Growth After 5 Days [facility] Fluid ABDOMEN / Unknown 10/10/2024 1:51 PM EDT 10/10/2024 3:56 PM EDT Gerri Peterson MD MICROBIOLOGY - GENERAL ORDERABL ES Final Result Performing Organization Address [facility] de Phone Number [facility] [address] * UPPER GI ENDOSCOPY (10/10/2024 11:48 AM EDT) 10/10/2024 11:4 8 AM EDT Narrative [facility] - 10/10/2024 12:34 PM EDT [id number] Procedure Date: 10/10/2024 11:48 AM Patient Name: Julien Gilbert Date of : 1985 Admit Type: Inpatient Age: 39 Gender: Male Note Status: Finalized Attending MD: Lino Soto MD, [id number] Procedure: Upper GI endoscopy Indications: Gastroesopahgeal variceal [...] verified by the physician, the nurse, the planting material unloader and the product development technician in the pre-procedure area in the [...] to hypotension Procedure Code(s): --- Professional --- 93744, GC, Esophagogastroduodenoscopy, flexible, transoral; diagnostic, including collection of specimen(s) by brushing or washing, when performed (separate procedure) Diagnosis Code(s): --- Professional --- I85.00, Esophageal varices without bleeding K76.6, Portal hypertension K31.89, Other diseases of stomach and duodenum CPT copyright 2022 [employer]. All rights reserved. The codes documented in this report are preliminary and upon hospital coder review may be revised to meet [...] 12:10:16 PM Scope Out: 12:17:[address] [place] [address], [address] us Provider Not In System PROCEDURE/MINOR SURGICAL [...] Final Result Performing Organization Address [facility] Co de Phone Number [facility] [address] * (ABNORMAL) Hepatic Function Panel (10/10/2024 5:23 AM EDT) Total Bilirubin 8.6(H) 0.0 - 1.5 mg/dL 10/10/2024 6:21 AM EDT [facility] Bilirubin, Direct 4.65(H) 0.00 - 0.40 mg/dL 10/10/2024 6:21 AM EDT [facility] AST 40(H) 13 - 39 U/L 10/10/2024 6:21 AM EDT [facility] ALT 22 7 - 52 U/L 10/10/2024 6:21 AM EDT [facility] Alkaline Phosphatase 118 36 - 125 U/L 10/10/2024 6:21 AM EDT [facility] Total Protein 4.6(L) 6.4 - 8.9 g/dL 10/10/2024 6:21 AM EDT [facility] Albumin 3.3(L) 3.5 - 5.7 g/dL 10/10/2024 6:21 AM EDT [facility] Bilirubin, Indirect 3.95(H) 0.00 - 1.10 mg/dL 10/10/2024 6:21 AM EDT [facility] Plasma 10/10/2024 5:23 AM EDT 10/10/2024 5:50 AM EDT Eileen Schroeder MD, PhD LAB BLOOD ORDERABLES Final Result Performing Organization Address City/[facility]/ZIP Co de Phone Number [facility] [address] * Magnesium (10/10/2024 5:23 AM EDT) Magnesium 1.9 1.5 - 2.5 mg/dL 10/10/2024 6:21 AM EDT [facility] Plasma 10/10/2024 5:23 AM EDT 10/10/2024 5:50 AM EDT Eileen Schroeder MD, PhD LAB BLOOD ORDERABLES Final Result Performing Organization Address [facility] Co de Phone Number [facility] [address] * (ABNORMAL) Renal Function Panel w/EGFR (10/10/2024 5:23 AM EDT) Sodium 135 133 - 146 mmol/L 10/10/2024 6:21 AM EDT [facility] Potassium 3.6 3.5 - 5.3 mmol/L 10/10/2024 6:21 AM EDT [facility] Chloride 108 98 - 110 mmol/L 10/10/2024 6:21 AM EDT [facility] CO2 17(L) 21 - 33 mmol/L 10/10/2024 6:21 AM EDT [facility] Anion Gap 10 3 - 16 mmol/L 10/10/2024 6:21 AM EDT [facility] BUN 53(H) 7 - 25 mg/dL 10/10/2024 6:21 AM EDT [facility] Creatinine 2.85(H) 0.60 - 1.30 mg/dL 10/10/2024 6:21 AM EDT [facility] Glucose 113(H) 70 - 100 mg/dL 10/10/2024 6:21 AM EDT [facility] Calcium 9.0 8.6 - 10.3 mg/dL 10/10/2024 6:21 AM EDT [facility] Phosphorus 3.3 2.1 - 4.7 mg/dL 10/10/2024 6:21 AM EDT [facility] Albumin 3.3(L) 3.5 - 5.7 g/dL 10/10/2024 6:21 AM EDT [facility] Osmolality, Calculated 295 278 - 305 mOsm/kg 10/10/2024 6:21 AM EDT [facility] EGFR 28 10/10/2024 6:21 AM EDT [facility] Comment:As of 2021, the estimated [...] MD, PhD LAB BLOOD ORDERABLES Final Result [facility] [address] [place] [address], [facility] * (ABNORMAL) CBC (10/10/2024 5:23 AM EDT) WBC 5.1 3.8 - 10.8 10E3/uL 10/10/2024 6:14 AM EDT [facility] RBC 2.04(L) 4.20 - 5.80 10E6/uL 10/10/2024 6:14 AM EDT [facility] Hemoglobin 7.3(L) 13.2 - 17.1 g/dL 10/10/2024 6:14 AM EDT [facility] Hematocrit 20.6(L) 38.5 - 50.0 % 10/10/2024 6:14 AM EDT [facility] MCV 101.2(H) 80.0 - 100.0 fL 10/10/2024 6:14 AM EDT [facility] MCH 36.0(H) 27.0 - 33.0 pg 10/10/2024 6:14 AM EDT [facility] MCHC 35.5 32.0 - 36.0 g/dL 10/10/2024 6:14 AM EDT [facility] RDW 17.6(H) 11.0 - 15.0 % 10/10/2024 6:14 AM EDT [facility] Platelets 39(L) 140 - 400 10E3/uL 10/10/2024 6:14 AM EDT [facility] Comment: CNV Specimen checked for clots. None detected. MPV 9.8 7.5 - 11.5 fL 10/10/2024 6:14 AM EDT [facility] Whole Blood 10/10/2024 5:23 AM EDT 10/10/2024 5:51 AM EDT us Eileen Schroeder MD, PhD LAB BLOOD ORDERABLES Final Result Performing Organization Address [facility] de Phone Number [facility] [address] * Vancomycin, random (10/10/2024 5:23 AM EDT) Vancomycin Random 16.4 ug/mL 10/10/2024 6:22 AM EDT [facility] Comment:Reference range not established for this test. Plasma 10/10/2024 5:23 AM EDT 10/10/2024 5:51 AM EDT us Jodi FreireD LAB BLOOD ORDERABLES Final Result [facility] [address] [facility] [place] [address], [facility] * ECHO STRESS W/ CONTRAST (10/09/2024 4:37 PM EDT) Anatomical Region Laterality Modality Chest Ultrasound 10/09/2024 2:40 PM EDT Narrative 10/09/2024 6:45 PM EDT * [facility]* [address] [place] [address] Stress Echocardiogram Patient: Julien Gilbert Room: 8142 Height: 76in MR Number: [id number] : 1985 Weight: 262lb Account: [id number] Gender: M BP: 125 / 77 Study Date: 10/09/2024 Age: 39 BSA: 2.48m^2 Referring physician: Gerri Peterson Interpreting physician: Tonya Henriquez MD FELLOW Lisa Jha MD PERFORMING Tonya Henriquez MD EFFICIENCY EXPERT [employer]n ORDERING Gerri Peterson REFERRING Gerri Peterson ATTENDING [...] was augmented by the addition of hand diabetes physician and leg lifts. The infusion was terminated [...] at baseline or with provocation, shows no nitbo-yw-kzme atrial level shunt. - Pulmonary arteries: Systolic [...] at baseline or with provocation, shows no ayyvn-pp-hiyv atrial level shunt. Pulmonary artery: - Systolic [...] at baseline or with provocation, shows no umskd-gm-oyoi atrial level shunt. Pericardium: - There is [...] peak heart rate and blood pressure was 39909ux Hg/min. Stress testing did not produce any [...] Reviewed and confirmed by Tonya Henriquez MD [id number] Procedure Note Tonya Henriquez MD - 10/09/2024 * [facility]* [address] [place] [id number] Stress Echocardiogram Patient: Julien Gilbert Room: 8142 Height: 76in MR Number: [id number] : 1985 Weight: 262lb Account: [id number] Gender: M BP: 125 / 77 Study Date: 10/09/2024 Age: 39 BSA: 2.48m^2 Referring physician: Gerri Peterson Interpreting physician: Tonya Henriquez MD FELLOW Lisa Jha MD PERFORMING Tonya Henriquez MD EFFICIENCY EXPERT [employer] ORDERING Gerri Peterson REFERRING Gerri Peterson ATTENDING Fouzia Rene ADMITTING Angie Blanchard Procedure:STRESS ECHO - PHARMACOLOGIC Order: Indications: Pre-Operative Clearance (Z01.818). PMH: EtOH Use Disorder. Risk factors: Hypertension. Dyslipidemia. Study data: Height: 76in. 193cm. Weight: 262lb. 118.8kg. The previousstudy was not available, so comparison was made to the report of 07/15/2024. Study status: Routine. Procedure: The patient arrived at theregional hospital for respiratory and complex care. A baseline ECG was recorded. Intravenous access [...] was augmented by the addition of hand diabetes physician and leg lifts. The infusion was terminated [...] at baseline or with provocation, shows no xlama-am-woet atrial level shunt. - Pulmonary arteries: Systolic [...] study at baseline or with provocation, showsno mtzhn-rw-hahu atrial level shunt. Pulmonary artery: - Systolic [...] at baseline or with provocation, shows no ctlch-xj-msex atrial level shunt. Pericardium: - There is [...] heart rate). The maximal predicted heart rate [id number]. The target heart rate was 152bpm. The target heart rate was achieved.The heart rate response to stress is normal. There is a normal resting blood pressure with an appropriate response to stress. The rate-pressureproduct for the peak heart rate and blood pressure was 37750tn Hg/min. Stress testing did not produce any [...] Reviewed and confirmed by Tonya Henriquez MD [id number] us Gerri Peterson MD CV ECHO ORDERABLES Final Result * (ABNORMAL) Renal Function Panel w/EGFR, STAT (10/09/2024 1:05 PM EDT) Sodium 134 133 - 146 mmol/L 10/09/2024 2:10 PM EDT [facility] Potassium 3.7 3.5 - 5.3 mmol/L 10/09/2024 2:10 PM EDT [facility] Chloride 105 98 - 110 mmol/L 10/09/2024 2:10 PM EDT [facility] CO2 17(L) 21 - 33 mmol/L 10/09/2024 2:10 PM EDT [facility] Anion Gap 12 3 - 16 mmol/L 10/09/2024 2:10 PM EDT [facility] BUN 53(H) 7 - 25 mg/dL 10/09/2024 2:10 PM EDT [facility] Creatinine 2.89(H) 0.60 - 1.30 mg/dL 10/09/2024 2:10 PM EDT [facility] Glucose 108(H) 70 - 100 mg/dL 10/09/2024 2:10 PM EDT [facility] Calcium 9.3 8.6 - 10.3 mg/dL 10/09/2024 2:10 PM EDT [facility] Phosphorus 3.4 2.1 - 4.7 mg/dL 10/09/2024 2:10 PM EDT [facility] Albumin 3.6 3.5 - 5.7 [...] LAB BLOOD ORDERABLES Final Result [facility] [address] [facility]. [place] [id number], [facility] * (ABNORMAL) Renal Function Panel w/EGFR, STAT (10/09/2024 8:14 AM EDT) Sodium 134 133 - 146 mmol/L 10/09/2024 8:47 AM EDT [facility] Potassium 3.4(L) 3.5 - 5.3 mmol/L 10/09/2024 8:47 AM EDT [facility] Chloride 107 98 - 110 mmol/L 10/09/2024 8:47 AM EDT [facility] CO2 17(L) 21 - 33 mmol/L 10/09/2024 8:47 AM EDT [facility] Anion Gap 10 3 - 16 mmol/L 10/09/2024 8:47 AM EDT [facility] BUN 54(H) 7 - 25 mg/dL 10/09/2024 8:47 AM EDT [facility] Creatinine 3.04(H) 0.60 - 1.30 mg/dL 10/09/2024 8:47 AM EDT [facility] Glucose 124(H) 70 - 100 mg/dL 10/09/2024 8:47 AM EDT [facility] Calcium 9.0 8.6 - 10.3 mg/dL 10/09/2024 8:47 AM EDT [facility] Phosphorus 3.5 2.1 - 4.7 mg/dL 10/09/2024 8:47 AM EDT [facility] Albumin 3.4(L) 3.5 - 5.7 g/dL 10/09/2024 8:47 AM EDT [facility] Osmolality, Calculated 294 278 - 305 mOsm/kg 10/09/2024 8:47 AM EDT [facility] EGFR 26 10/09/2024 8:47 AM EDT [facility] Comment:As of 2021, the estimated [...] MD LAB BLOOD ORDERABLES Final Resu lt [facility] [address] [id number], [facility] * Prepare RBC, leukoreduced, 1 Units (10/09/2024 6:16 AM EDT) Product Code S6147H89 [facility] Unit Number [id number] [facility]LL Dispense Status Presumed Transfused_PT [facility]LL Blood Expiration Date [id number] [facility] Coding System [id number] [facility] Product Eileen Schroeder MD, PhD BLOOD BANK PRODUCT OR DERABLES Final Result [facility] * (ABNORMAL) Protime-INR (10/09/2024 4:59 AM EDT) Protime 26.5(H) 12.1 - 15.1 seconds 10/09/2024 6:30 AM EDT [facility] INR 2.4(H) 0.9 - 1.1 10/09/2024 6:30 AM EDT [facility] Comment: RECOMMENDED THERAPEUTIC RANGES USING INR : Stable oral anticoagulant therapy: 2.0 - 3.0 Mechanical prosthetic heart valve: 2.5 - 3.5 Recurrent acute myocardial infarction: 2.5 - 3.5 Plasma 10/09/2024 4:59 AM EDT 10/09/2024 5:55 AM EDT Eileen Schroeder MD, PhD LAB BLOOD ORDERABLES Final Result Performing Organization Address [facility] Co de Phone Number [facility] [address] * (ABNORMAL) Hepatic Function Panel (10/09/2024 4:59 AM EDT) Total Bilirubin 9.0(H) 0.0 - 1.5 mg/dL 10/09/2024 6:42 AM EDT [facility] Bilirubin, Direct 4.60(H) 0.00 - 0.40 mg/dL 10/09/2024 6:42 AM EDT [facility] AST 38 13 - 39 U/L 10/09/2024 6:42 AM EDT [facility] ALT 18 7 - 52 U/L 10/09/2024 6:42 AM EDT [facility] Alkaline Phosphatase 122 36 - 125 U/L 10/09/2024 6:42 AM EDT [facility] [facility] Total Protein 4.8(L) 6.4 - 8.9 g/dL 10/09/2024 6:42 AM EDT [facility] Albumin 3.4(L) 3.5 - 5.7 g/dL 10/09/2024 6:42 AM EDT [facility] Bilirubin, Indirect 4.40(H) 0.00 - 1.10 mg/dL 10/09/2024 6:42 AM EDT [facility] Plasma 10/09/2024 4:59 AM EDT 10/09/2024 5:57 AM EDT Eileen Schroeder MD, PhD LAB BLOOD ORDERABLES Final Result Performing Organization Address [facility] Co de Phone Number [facility] [address] * Magnesium (10/09/2024 4:59 AM EDT) Magnesium 1.8 1.5 - 2.5 mg/dL 10/09/2024 6:42 AM EDT [facility] Plasma 10/09/2024 4:59 AM EDT 10/09/2024 5:57 AM EDT Eileen Schroeder MD, PhD LAB BLOOD ORDERABLES Final Result Performing Organization Address [facility] Co de Phone Number [facility] [address] * (ABNORMAL) Renal Function Panel w/EGFR (10/09/2024 4:59 AM EDT) Sodium 134 133 - 146 mmol/L 10/09/2024 6:42 AM EDT [facility] Potassium 3.3(L) 3.5 - 5.3 mmol/L 10/09/2024 6:42 AM EDT [facility] Chloride 107 98 - 110 mmol/L 10/09/2024 6:42 AM EDT [facility] CO2 16(L) 21 - 33 mmol/L 10/09/2024 6:42 AM EDT [facility] Anion Gap 11 3 - 16 mmol/L 10/09/2024 6:42 AM EDT [facility] BUN 56(H) 7 - 25 mg/dL 10/09/2024 6:42 AM EDT [facility] Creatinine 2.98(H) 0.60 - 1.30 mg/dL 10/09/2024 6:42 AM EDT [facility] Glucose 112(H) 70 - 100 mg/dL 10/09/2024 6:42 AM EDT [facility] Calcium 9.0 8.6 - 10.3 mg/dL 10/09/2024 6:42 AM EDT [facility] Phosphorus 3.5 2.1 - 4.7 mg/dL 10/09/2024 6:42 AM EDT [facility] Albumin 3.4(L) 3.5 - 5.7 g/dL 10/09/2024 6:42 AM EDT [facility] Osmolality, Calculated 294 278 - 305 mOsm/kg 10/09/2024 6:42 AM EDT [facility] EGFR 26 10/09/2024 6:42 AM EDT [facility] Comment:As of 2021, the estimated GFR is calculated using the 2020 Chronic Kidney Disease Epidemiology Collaboration (CKD-EPI) equation. In line with the NKF-ASN Task Force Recommendations, this equation does not include a coefficient for race. A single eGFR value is calculated for each patient. The reference interval is >60 mL/min/1.73m2. eGFR values greater than 90 will be reported as >90mL/min/1.73m2. Reference: Lusi Eduardo C, Talia M, Olivia DC, Emerita ND, Madelyn [place], Felicia [place], et al. A Unifying Approach for GFR Estimation: Recommendations of the NKF-ASN Task Force on Reassessing the inclusion of Race in Diagnosing Kidney Disease. Am J Kidney Dis. 2020. Plasma 10/09/2024 4:59 AM EDT 10/09/2024 5:57 AM EDT Eileen Schroeder MD, PhD LAB BLOOD ORDERABLES Final Result [facility] [address] [place] [address], [facility] * (ABNORMAL) CBC (10/09/2024 4:59 AM EDT) WBC 4.6 3.8 - 10.8 10E3/uL 10/09/2024 6:21 AM EDT [facility] RBC 2.17(L) 4.20 - 5.80 10E6/uL 10/09/2024 6:21 AM EDT [facility] Hemoglobin 8.0(L) 13.2 - 17.1 g/dL 10/09/2024 6:21 AM EDT [facility] Hematocrit 21.8(L) 38.5 - 50.0 % 10/09/2024 6:21 AM EDT [facility] MCV 100.5(H) 80.0 - 100.0 fL 10/09/2024 6:21 AM EDT [facility] MCH 36.7(H) 27.0 - 33.0 pg 10/09/2024 6:21 AM EDT [facility] MCHC 36.5(H) 32.0 - 36.0 g/dL 10/09/2024 6:21 AM EDT [facility] RDW 18.1(H) 11.0 - 15.0 % 10/09/2024 6:21 AM EDT [facility] Platelets 36(L) 140 - 400 10E3/uL 10/09/2024 6:21 AM EDT [facility] Comment:Specimen checked for clots. None detected. MPV 8.3 7.5 - 11.5 fL 10/09/2024 6:21 AM EDT [facility] Whole Blood 10/09/2024 4:59 AM EDT 10/09/2024 5:56 AM EDT us Eileen Schroeder MD, PhD LAB BLOOD ORDERABLES Final Result [facility] [address] [place] [address], [facility] * Renal Tx Recipient (10/09/2024 4:59 AM EDT) [facility] Renal Transplant Recipient The request and specimen(s) for this test have been received and transported to the [facility] at [address] [place] [address]. The [facility] will report results directly to the client. 10/09/2024 7:26 AM EDT [facility] Blood 10/09/2024 4:59 AM EDT 10/09/2024 7:26 AM EDT us Aaron Gonzalez MD LAB BLOOD ORDERABLES Final Resu lt [facility] [address] * Vancomycin, random (10/09/2024 4:59 AM EDT) [facility] Vancomycin Random 11.0 ug/mL 10/09/2024 6:33 AM EDT [facility] Comment:Reference range not established for this test. Plasma 10/09/2024 4:59 AM EDT 10/09/2024 5:56 AM EDT us Jodi Ortiz PharmD LAB BLOOD ORDERABLES Final Result [facility] [address] * (ABNORMAL) CBC (10/08/2024 5:52 PM EDT) [facility] WBC 5.6 3.8 - 10.8 10E3/uL 10/08/2024 6:52 PM EDT [facility] RBC 2.38(L) 4.20 - 5.80 10E6/uL 10/08/2024 6:52 PM EDT [facility] Hemoglobin 8.3(L) 13.2 - 17.1 g/dL 10/08/2024 6:52 PM EDT [facility] Hematocrit 24.6(L) 38.5 - 50.0 % 10/08/2024 6:52 PM EDT [facility] MCV 103.2(H) 80.0 - 100.0 fL 10/08/2024 6:52 PM EDT [facility] MCH 34.7(H) 27.0 - 33.0 pg 10/08/2024 6:52 PM EDT [facility] MCHC 33.6 32.0 - 36.0 g/dL 10/08/2024 6:52 PM EDT [facility] RDW 18.5(H) 11.0 - 15.0 % 10/08/2024 6:52 PM EDT [facility] Platelets 39(L) 140 - 400 10E3/uL 10/08/2024 6:52 PM EDT [facility] Comment:CNV MPV 8.1 7.5 - 11.5 fL 10/08/2024 6:52 PM EDT [facility] Whole Blood 10/08/2024 5:52 PM EDT 10/08/2024 6:45 PM EDT us Eileen Schroeder MD, PhD LAB BLOOD ORDERABLES Final Result Performing Organization Address [facility] Co de Phone Number [facility] [address] * Transfuse RBC Has consent been obtained? Yes; Transfusion Rate: Per dept routine (10/08/2024 1:17 PM EDT) us Eileen Schroeder MD, PhD NURSING TREATMENT ORD ERABLES - BLOOD ADMIN Final Result Performing Organization Address City/[facility]/ZIP Co de Phone Number EXTERNAL * Transfuse RBC Has consent been obtained? Yes; Transfusion Rate: Per dept routine, 1 Units (10/08/2024 1:17 PM EDT) us Eileen Schroeder MD, PhD NURSING TREATMENT ORD ERABLES - BLOOD ADMIN Final Result Performing Organization Address City/[facility] Co de Phone Number EXTERNAL * (ABNORMAL) MMR(IgG) Panel (Measles, Mumps, Rubella) (10/08/2024 10:25 AM EDT) Mumps IgG Positive 10/08/2024 11:39 AM EDT [facility] MUMPS IGG NUM 99.00(H) 0.0 - 8.9 U/mL 10/08/2024 11:39 AM EDT [facility] Rubella IgG Scr Positive 10/08/2024 11:40 AM EDT [facility] RUB NUM 4.15(H) 0.00 - 0.89 INDEX 10/08/2024 11:40 AM EDT [facility] Rubeola Ab, IgG Positive 10/08/2024 11:39 AM EDT [facility] RUB IGG NUM 273.00(H) 0.00 - 13.40 U/mL 10/08/2024 11:39 AM EDT [facility] Serum 10/08/2024 10:2 5 AM EDT 10/08/2024 10:49 AM EDT Narrative [facility] - 10/08/2024 11:40 AM EDT [...] MD LAB BLOOD ORDERABLES Final Resu lt [facility] [address] [id number], [facility] * (ABNORMAL) Hemoglobin A1C (10/08/2024 10:25 AM EDT) Hemoglobin A1C 3.7(L) 4.0 - 5.6 % 10/09/2024 1:22 PM EDT [facility] Comment: Hemoglobin A1c Interpretation Guidelines: [...] Resu lt Performing Organization Address [facility]/ZIP Co de Phone Number [facility] [address] * (ABNORMAL) Vitamin D 25 Hydroxy (10/08/2024 10:25 AM EDT) Vit D, 25-Hydroxy 7.1(L) 30.0 - 100.0 ng/mL 10/08/2024 11:36 AM EDT [facility] Comment: Vitamin D deficiency has been defined by the [place] of [employer] (IOM) and an Endocrine Society [...] MD LAB BLOOD ORDERABLES Final Resu lt [facility] [address] [facility]. [address] * Iron Studies (Iron + TIBC) (10/08/2024 10:25 AM EDT) Iron 81 50 - 212 ug/dL 10/08/2024 11:23 AM EDT HEALTH [facility] % Iron Saturation SEE COMMENT 15.0 - 55.0 % 10/08/2024 11:23 AM EDT [facility] Comment:Unable to calculate result because contributing result outside reportable range.. TIBC SEE COMMENT 261 - 462 ug/dL 10/08/2024 11:23 AM EDT [facility] Comment:Unable to calculate result because contributing result outside reportable range.. Serum 10/08/2024 10:2 5 AM EDT 10/08/2024 10:[address] [facility] Gerri Peterson MD LAB BLOOD ORDERABLES Final Resu lt [facility] [address] [facility]. [address] * (ABNORMAL) Ferritin (10/08/2024 10:25 AM EDT) Ferritin 706.9(H) 23.9 - 336.2 ng/mL 10/08/2024 11:35 AM EDT [facility] Serum 10/08/2024 10:2 5 AM EDT 10/08/2024 10:[address] [facility] Gerri Peterson MD LAB BLOOD ORDERABLES Final Resu lt Performing Organization Address City/[facility]/ZIP Co de Phone Number [facility] [address] [facility]. [address] * QuantiFERON TB2 Ag (10/08/2024 10:25 AM EDT) QuantiFERON TB2 Ag Value 0.07 10/10/2024 10:41 AM EDT [facility] Plasma 10/08/2024 10:2 5 AM EDT 10/08/2024 11:[address] [facility] Gerri Peterson MD LAB BLOOD ORDERABLES Final Resu lt [facility] [address] * QuantiFERON TB1 Ag (10/08/2024 10:25 AM EDT) QuantiFERON TB1 Ag Value 0.06 10/10/2024 10:41 AM EDT [facility] Plasma 10/08/2024 10:2 5 AM EDT 10/08/2024 11:05 AM EDT Gerri Peterson MD LAB BLOOD ORDERABLES Final Resu lt Performing Organization Address [facility]/ZIP Co de Phone Number [facility] [address] [facility]. [address] * QuantiFERON Nil (10/08/2024 10:25 AM EDT) QuantiFERON Nil 0.06 10:41 AM EDT [facility] Plasma 10/08/2024 10:2 5 AM EDT 10/08/2024 11:[address] [facility] Gerri Peterson MD LAB BLOOD ORDERABLES Final Resu lt Performing Organization Address [facility] de Phone Number [facility] [address] [facility]. [address] * QuantiFERON Mitogen (10/08/2024 10:25 AM EDT) QuantiFERON Interpretation Negative Negative 10/10/2024 10:41 AM EDT [facility] Comment:Negative result geovanny cates M. tuberculosis infection is NOT likely. Negative results do not preclude tuberculosis infection (especially in immunosuppressed patients). Negative results have a TB antigen minus Nil value less than 0.35 IU/mL. In cases with high suspicion of disease, retesting or additional testing with medical evaluation may be useful. QuantiFERON Mitogen 4.87 10/10 10:41 AM EDT [facility] Plasma 10/08/2024 10:2 5 AM EDT 10/08/2024 11:05 AM EDT Narrative [facility] - 10/10/2024 10:41 AM EDT [...] in immunosuppressed states. Please see www.cdc.gov/tb. Result [facility] Gerri Peterson MD LAB BLOOD ORDERABLES Final Resu lt Performing Organization Address City/[facility] Co de Phone Number [facility] [address] [employer] * Reticulocyte Count, Auto (10/08/2024 7:41 AM EDT) Retic Ct Pct 1.35 0.50 - 2.00 % 10/08/2024 9:12 AM EDT [facility] Retic Ct Abs 26,190 25,000 - 90,000 /uL 10/08/2024 9:14 AM EDT [facility] Immature Retic Fract 0.37 0.09 - 0.56 10/08/2024 9:12 AM EDT [facility] Whole Blood 10/08/2024 7:41 AM EDT 10/08/2024 8:[address] [facility] Angie Blanchard MD LAB BLOOD ORDERABLES Final Res ult Performing Organization Address [facility] Co de Phone Number [facility] [address] [employer] * (ABNORMAL) Haptoglobin (10/08/2024 7:41 AM EDT) Haptoglobin <30(L) 44 - 215 mg/dL 10/08/2024 8:53 AM EDT [facility] Serum 10/08/2024 7:41 AM EDT 10/08/2024 7:[address] [facility] Eileen Schroeder MD, PhD LAB BLOOD ORDERABLES Final Result Performing Organization Address City/[facility] Co de Phone Number [facility] [address] [employer] * (ABNORMAL) CBC - Post Transfusion (10/08/2024 7:41 AM EDT) WBC 3.7(L) 3.8 - 10.8 10E3/uL 10/08/2024 8:34 AM EDT [facility] RBC 1.94(L) 4.20 - 5.80 10E6/uL 10/08/2024 8:34 AM EDT [facility] Hemoglobin 7.1(L) 13.2 - 17.1 g/dL 10/08/2024 8:34 AM EDT [facility] Hematocrit 20.0(L) 38.5 - 50.0 % 10/08/2024 8:34 AM EDT [facility] MCV 103.1(H) 80.0 - 100.0 fL 10/08/2024 8:34 AM EDT [facility] MCH 36.5(H) 27.0 - 33.0 pg 10/08/2024 8:34 AM EDT [facility] MCHC 35.4 32.0 - 36.0 g/dL 10/08/2024 8:34 AM EDT [facility] RDW 17.2(H) 11.0 - 15.0 % 10/08/2024 8:34 AM EDT [facility] Platelets 37(L) 140 - 400 10E3/uL 10/08/2024 8:34 AM EDT [facility] Comment: Specimen checked for clots. None detected. Slide Reviewed for PLT Clumps. None Seen. _Platelet Morphology Normal _Platelets Appear Decreased MPV 8.7 7.5 - 11.5 fL 10/08/2024 8:34 AM EDT [facility] Whole Blood 10/08/2024 7:41 AM EDT 10/08/2024 7:52 AM EDT Narrative [facility] - 10/08/2024 8:34 AM EDT Post-transfusion us Eileen Schroeder MD, PhD LAB BLOOD ORDERABLES Final Result [facility] [address] * Antibody Screen (10/08/2024 7:41 AM EDT) Antibody Screen Negative 10/08/2024 8:26 AM EDT [facility] Blood 10/08/2024 7:41 AM EDT 10/08/2024 7:57 AM EDT Narrative [facility] - 10/08/2024 8:32 AM EDT Testing performed by [facility] Transfusion Service Eileen Schroeder MD, PhD BLOOD BANK TEST ORDER PAL Final Result [facility] [address] * ABO/Rh (10/08/2024 7:41 AM EDT) ABO Grouping O 10/08/2024 8:14 AM EDT [facility] Rh Type Positive 10/08/2024 8:14 AM EDT [facility] Blood 10/08/2024 7:41 AM EDT 10/08/2024 7:57 AM EDT Eileen Schroeder MD, PhD BLOOD BANK TEST ORDER PAL Final Result [facility] [address] * (ABNORMAL) Lactate dehydrogenase (10/08/2024 5:36 AM EDT) LD 102(L) 110 - 270 U/L 10/08/2024 8:20 AM EDT [facility] Plasma 10/08/2024 5:36 AM EDT 10/08/2024 7:58 AM EDT Angie Blanchard MD LAB BLOOD ORDERABLES Final Res ult [facility] [address] * (ABNORMAL) Protime-INR (10/08/2024 5:36 AM [...] BLOOD ORDERABLES Final Result Performing Organization Address City/State/[facility] Co de Phone Number [facility] [address] * (ABNORMAL) Hepatic Function Panel (10/08/2024 5:36 AM EDT) Total Bilirubin 7.7(H) 0.0 - 1.5 mg/dL 10/08/2024 6:25 AM EDT [facility] Bilirubin, Direct 4.28(H) 0.00 - 0.40 mg/dL 10/08/2024 6:25 AM EDT [facility] AST 34 13 - 39 U/L 10/08/2024 6:25 AM EDT [facility] ALT 16 7 - 52 U/L 10/08/2024 6:25 AM EDT [facility] Alkaline Phosphatase 103 36 - 125 U/L 10/08/2024 6:25 AM EDT [facility] Total Protein 4.7(L) 6.4 - 8.9 g/dL 10/08/2024 6:25 AM EDT [facility] Albumin 3.5 3.5 - 5.7 g/dL 10/08/2024 6:25 AM EDT [facility] Bilirubin, Indirect 3.42(H) 0.00 - 1.10 mg/dL 10/08/2024 6:25 AM EDT [facility] Plasma 10/08/2024 5:36 AM EDT 10/08/2024 5:52 AM EDT Eileen Schroeder MD, PhD LAB BLOOD ORDERABLES Final Result Performing Organization Address City/[facility]/ZIP Co de Phone Number [facility] [address] * Magnesium (10/08/2024 5:36 AM EDT) Magnesium 1.9 1.5 - 2.5 mg/dL 10/08/2024 6:25 AM EDT [facility] Plasma 10/08/2024 5:36 AM EDT 10/08/2024 5:52 AM EDT Eileen Schroeder MD, PhD LAB BLOOD ORDERABLES Final Result Performing Organization Address [facility] Co de Phone Number [facility] [address] * (ABNORMAL) Renal Function Panel w/EGFR (10/08/2024 5:36 AM EDT) Sodium 135 133 - 146 mmol/L 10/08/2024 6:25 AM EDT [facility] Potassium 3.2(L) 3.5 - 5.3 mmol/L 10/08/2024 6:25 AM EDT [facility] Chloride 106 98 - 110 mmol/L 10/08/2024 6:25 AM EDT [facility] CO2 17(L) 21 - 33 mmol/L 10/08/2024 6:25 AM EDT [facility] Anion Gap 12 3 - 16 mmol/L 10/08/2024 6:25 AM EDT [facility] BUN 61(H) 7 - 25 mg/dL 10/08/2024 6:25 AM EDT [facility] Creatinine 3.10(H) 0.60 - 1.30 mg/dL 10/08/2024 6:25 AM EDT [facility] Glucose 106(H) 70 - 100 mg/dL 10/08/2024 6:25 AM EDT [facility] Calcium 9.0 8.6 - 10.3 mg/dL 10/08/2024 6:25 AM EDT [facility] Phosphorus 4.0 2.1 - 4.7 mg/dL 10/08/2024 6:25 AM EDT [facility] Albumin 3.5 3.5 - 5.7 g/dL 10/08/2024 6:25 AM EDT [facility] Osmolality, Calculated 298 278 - 305 mOsm/kg 10/08/2024 6:25 AM EDT [facility] EGFR 10/08/2024 6:25 AM EDT [facility] Comment:As of 2021, the estimated [...] MD, PhD LAB BLOOD ORDERABLES Final Result [facility] [address] [place] [address], [facility] * (ABNORMAL) CBC (10/08/2024 5:36 AM EDT) WBC 3.2(L) 3.8 - 10.8 10E3/uL 10/08/2024 6:41 AM EDT [facility] RBC 1.86(L) 4.20 - 5.80 10E6/uL 10/08/2024 6:41 AM EDT [facility] Hemoglobin 6.9(L) 13.2 - 17.1 g/dL 10/08/2024 6:41 AM EDT [facility] Hematocrit 18.9(L) 38.5 - 50.0 % 10/08/2024 6:41 AM EDT [facility] MCV 101.6(H) 80.0 - 100.0 fL 10/08/2024 6:41 AM EDT [facility] MCH 36.9(H) 27.0 - 33.0 pg 10/08/2024 6:41 AM EDT [facility] MCHC 36.3(H) 32.0 - 36.0 g/dL 10/08/2024 6:41 AM EDT [facility] RDW 17.0(H) 11.0 - 15.0 % 10/08/2024 6:41 AM EDT [facility] Platelets 34(L) 140 - 400 10E3/uL 10/08/2024 6:41 AM EDT [facility] Comment: Specimen checked for clots. None detected. Slide Reviewed for PLT Clumps. None Seen. Platelet Estimate Decreased 10/08/2024 6:41 AM EDT [facility] MPV 8.4 7.5 - 11.5 fL 10/08/2024 6:41 AM EDT [facility] Whole Blood 10/08/2024 5:36 AM EDT 10/08/2024 5:53 AM EDT Narrative [facility] - 10/08/2024 6:41 AM EDT Peripheral blood smear was scanned per review criteria approved by the laboratory medical insurance verifier. us Eileen Schroeder MD, PhD LAB BLOOD ORDERABLES Final Result [facility] [address] [place] [address], [facility] * Vancomycin, random (10/08/2024 5:36 AM EDT) Vancomycin Random 16.0 ug/mL 10/08/2024 6:20 AM EDT [facility] Comment:Reference range not established for this test. Plasma 10/08/2024 5:36 AM EDT 10/08/2024 5:52 AM EDT us Jodi Ortiz PharmD LAB BLOOD ORDERABLES Final Result Performing Organization Address City/[facility]/ZIP Co de Phone Number [facility] [address] * Urine Drug Confirmation (10/07/2024 10:50 PM EDT) BARBITURATES NOT PRESENT 10/09/2024 1:33 PM EDT [facility] BENZODIAZEPINES PRESENT 1:33 PM EDT [facility] Nordiazepam 3 ng/mL 10/09/2024 1:33 PM EDT [facility] Temazepam 6 ng/mL 10/09/2024 1:33 PM EDT [facility] CANNABINOIDS NOT PRESENT 10/09/2024 1:33 PM EDT [facility] SUPERVISOR DOCK STIMULANTS NOT PRESENT 1:33 PM EDT [facility] OPIOID ANALGESICS PRESENT 025 1:33 PM EDT [facility] Oxycodone 300 ng/mL 10/09/2024 1:33 PM EDT [facility] Oxymorphone 32 ng/mL 10/09/2024 1:33 PM EDT [facility] Tramadol >1000 ng/mL 10/09/2024 1:33 PM EDT [facility] OPIOID ANTAGONISTS NOT PRESENT 10/09 1:33 PM EDT [facility] SEDATIVES/MUSCLE RELAXANTS NOT PRESENT 10/09/2024 1:33 PM EDT [facility] TRICYCLIC ANTIDEPRESSANTS NOT PRESENT 10/09/2024 1:33 PM EDT [facility] Urine 10/07/2024 10:5 0 PM EDT 10/08/2024 3:00 AM EDT us Gerri Peterson MD URINE ORDERABLES Final Result Performing Organization Address [facility] Co de Phone Number [facility] [address] * Giardia Cryptosporidium Antigens (10/07/2024 10:50 PM EDT) Cryptosporidium Ag Negative Negative 2024 7:59 AM EDT [facility] Giardia Ag Negative Negative 10/08/2024 7:59 AM EDT [facility] Comment: Detection of Giardia and Cryptosporidium antigen is more sensitive and specific than microscopy. Because antigens are shed continuously, repeat testing is rarely warranted. Feces 10/07/2024 10:5 0 PM EDT 10/08/2024 1:53 AM EDT Comment:F Bisi Hernandez DO MICROBIOLOGY - GENERAL ORDERABLE S Final Result [facility] [address] [place] [address], [facility] * (ABNORMAL) Urine Drug Screen Reflex to Confirmation (10/07/2024 10:50 PM EDT) Amphetamine, 500 ng/mL Cutoff Negative Negative 10/08/2024 3:00 AM EDT [facility] Barbiturates UR, 300 ng/mL Cutoff Negative Negative 10/08/2024 3:00 AM EDT [facility] Buprenorphine, 5 ng/mL Cutoff Negative Negative 10/08/2024 3:00 AM EDT [facility] Benzodiazepines UR, 300 ng/mL Cutoff Negative Negative 10/08/2024 3:00 AM EDT [facility] Cocaine UR, 300 ng/mL Cutoff Negative Negative 10/08/2024 3:00 AM EDT [facility] Methadone, UR, 300 ng/mL Cutoff Negative Negative 10/08/2024 3:00 AM EDT [facility] Opiates UR, 300 ng/mL Cutoff Negative Negative 10/08/2024 3:00 AM EDT [facility] Oxycodone, 100 ng/mL Cutoff Presumptive Positive(A) Negative 10/08/2024 3:00 AM EDT [facility] Tricyclic Antidepressants, 300 ng/mL Cutoff Negative Negative 10/08/2024 3:00 AM EDT [facility] Comment:This test has been d eveloped and its performance characteristics determined by [facility] which is certified under [...] determined by [facility] which is certified under [...] Gerri Peterson MD URINE ORDERABLES Final Result [facility] [address] [id number], [facility] * Comprehensive Drug Screen (10/07/2024 [...] Midazolam [facility] Nordiazepam [facility] Oxazepam CANCELED [facility] Temazepam CANCELED [facility] CANNABINOIDS CANCELED [facility] THC-COOH CANCELED [facility] SUPERVISOR DOCK STIMULANTS CANCELED [facility] Cocaine Metabolite(benzoylec gonine) CANCELED [facility] Amphetamine [facility] Methamphetamine [facility]ED [facility] MDA CANCELED [facility] MDEA CANCELED [facility] Phencyclindine (PCP) CANCELED [facility] OPIOID ANALGESICS [facility]CELED [facility] Heroin Metabolite(6-RAMONA) CANCELED [facility] Codeine CANCELED [facility] Morphine CANCELED [facility] Hydrocodone [facility]ELED [facility] Hydromorphone CANCELED [facility] Oxycodone CANCELED [facility] Oxymorphone [facility]ED [facility] Meperidine CANCELED [facility] Normeperidine [facility]ELED [facility] Methadone CANCELED [facility] Methadone Metabolite (EDDP) CANCELED [facility] Tramadol CANCELED [facility] Fentanyl [facility]CELED [facility] Norfentanyl [facility]ELED [facility] Sufentanil CANCELED [facility] OPIOID ANTAGONISTS CANCELED [facility] Buprenorphine [facility]CELED [facility] Norbuprenorphine CANCELED [facility] Naltrexone CANCELED [facility] Naloxone [facility]CELED [facility] SEDATIVES/MUSCLE RELAXANTS CANCELED [facility] Carisoprodol [facility]ELED [facility] Meprobamate [facility]ED [facility] TRICYCLIC ANTIDEPRESSANTS CANCELED [facility] Amitriptyline [facility]ED [facility] Clomipramine [facility]ELED [facility] Desipramine [facility] Doxepin CANCELED [facility] Imipramine CANCELED [facility] Nortriptyline [facility]ED [facility] Urine Creatinine CANCELED mg/dL [facility] Nitrite [facility]ELED [facility] Glutaraldehyde [facility]CELED [facility] pH CANCELED 10/08/2024 7:09 AM EDT [facility] Comment:The released value 5 .6 was canceled by YAQUELIN on 10/08/2024 07:09 Specific [place] CANCELED 10/09/19 7:09 AM EDT [facility] Comment:The released value 1 .009 was canceled by YAQUELIN on 10/08/2024 07:09 Bleach CANCELED [facility] Pyridinium Chlorochromate CANCELED [facility] Urine 10/07/2024 10:5 0 PM EDT 10/08/2024 2:07 AM EDT Narrative [facility] - 10/08/2024 7:09 AM EDT See accn [id number] Gerri Peterson MD URINE ORDERABLES Edited Result - Final Performing Organization Address [facility] Co de Phone Number [facility] [address] [facility]. [address] * Ova and Parasite Comprehensive w/ Giardia/Crypto (10/07/2024 10:50 PM EDT) O & P Method: Concentration and Trichrome Stain [facility] Results No Amoeba, Ova, Or Parasites Seen. -- O and P examination of additional specimens is recommended only for symptomatic patients, immunosuppressed patients or those with an appropriate travel history. [facility] Feces FECES / Unknown 10/07/2024 1 0:50 PM EDT 10/08/2024 1:53 AM EDT Comment:F Bisi Hernandez DO MICROBIOLOGY - GENERAL ORDERABLE S Final Result Performing Organization Address [facility] Co de Phone Number [facility] [address] [facility]. [address] * Enteric Pathogen Panel (10/07/2024 10:50 PM EDT) Campylobacter Group (C. ecoli, C. jejuni, C. trino) Not Detected Not Detected 10/08/2024 4:40 AM EDT [facility] Salmonella species Not Detected Not Detected 10/08/2024 4:40 AM EDT [facility] Shigella species Not Detected Not Detected 10/08/2024 4:40 AM EDT [facility] Vibrio Group (Vibrio cholerae, Vibrio parahaemolyticus) Not Detected Not Detected 10/08/2024 4:40 AM EDT [facility] Yersinia enterocolitica Not Detected Not Detected 10/08/2024 4:40 AM EDT [facility] Shiga toxin 1 Not Detected Not Detected 10/08/2024 4:40 AM EDT [facility] Shiga toxin 2 Not Detected Not Detected 10/08/2024 4:40 AM EDT [facility] Norovirus Not Detected Not Detected 10/08/2024 4:40 AM EDT [facility] Rotavirus Not Detected Not Detected 10/08/2024 4:40 AM EDT [facility] Comment: The Enteric Pathogen Panel [...] FLUIDS AND STOOLS ORDERABLE S Final Result [facility] [address] [place] [address], [facility] * Hepatitis C Antibody (10/07/2024 6:38 PM EDT) HCV Ab Nonreactive Nonreactive 10/07/2024 7:56 PM EDT [facility] Comment:Health Department no tified in accordance with reportable infectious disease guidelines. Serum 10/07/2024 6:38 PM EDT 10/07/2024 6:52 PM EDT Narrative [facility] - 10/07/2024 7:56 PM EDT Antibodies to HCV not detected; does not exclude the possibility of exposure to HCV. Gerri Peterson MD LAB BLOOD ORDERABLES Final Resu lt Performing Organization Address City/[facility]/ZIP Co de Phone Number [facility] [address] * Hepatitis B Surface Antibody, Quantitati (10/07/2024 6:38 PM EDT) Hep B S Ab Nonreactive Nonreactive 10/07/2024 8:00 PM EDT [facility] HBSAB NUMBER 7.88 0.00 - 7.99 mIU/mL 10/07/2024 8:00 PM EDT [facility] Serum 10/07/2024 6:38 PM EDT 10/07/2024 6:52 PM EDT [facility] - 10/07/2024 8:00 PM EDT Individual is considered not immune to HBV infection. Gerri Peterson MD LAB BLOOD ORDERABLES Final Resu lt Performing Organization Address [facility] Co de Phone Number [facility] [address] [facility]. [address] * Hepatitis B surface antigen (10/07/2024 6:38 PM EDT) Hep B Surface Ag Nonreactive Nonreactive 10/07/2024 7:51 PM EDT [facility] Comment:Health Department no tified in accordance with reportable infectious disease guidelines. Serum 10/07/2024 6:38 PM EDT 10/07/2024 6:52 PM EDT [facility] - 10/07/2024 7:51 PM EDT Specimen is considered negative for HBsAg. Gerri Peterson MD LAB BLOOD ORDERABLES Final Resu lt Performing Organization Address City/[facility] Co de Phone Number [facility] [address] [facility]. [address] * Hepatitis A Antibody Total (10/07/2024 6:38 PM EDT) Anti-HAV Total (IgG + IgM) Nonreactive 10/07/2024 7:53 PM EDT [facility] Serum 10/07/2024 6:38 PM EDT 10/07/2024 6:52 PM EDT Narrative [facility] - 10/07/2024 7:53 PM EDT HAV antibodies not detected Gerri Peterson MD LAB BLOOD ORDERABLES Final Resu lt Performing Organization Address [facility]/ZIP Co de Phone Number [facility] [address] [facility]. [address] * Hepatitis A IgM (10/07/2024 6:38 PM EDT) Hep A IgM Nonreactive Nonreactive 10/07/2024 7:46 PM EDT [facility] Serum 10/07/2024 6:38 PM EDT 10/07/2024 6:52 PM EDT [facility] - 10/07/2024 7:46 PM EDT IgM anti-HAV not detected. Does not exclude the possibility of exposure to or infection with HAV. Levels of IgM anti-HAV may be below the cut-off in early infection. Gerri Peterson MD LAB BLOOD ORDERABLES Final Resu lt Performing Organization Address [facility] Co de Phone Number [facility] [address] * (ABNORMAL) Lipid Profile (10/07/2024 6:37 PM EDT) Non-HDL Cholesterol, Calculated See Note 0 - 129 mg/dL 10/07/2024 7:42 PM EDT [facility] Comment: Desirable: < 130 mg/dL Above Desirable: 130-159 mg/dL Borderline High: 160-189 mg/dL High: 190-219 mg/dL Very High: > 219 mg/dL Unable to calculate result either because contributing result(s) are outside of reportable range or are not available. Cholesterol, Total <25 0 - 200 mg/dL 10/07/2024 7:42 PM EDT [facility] Triglycerides 30 10 - 149 mg/dL 10/07/2024 7:42 PM EDT [facility] HDL 4(L) 60 - 92 [...] Cholesterol See Note mg/dL 7:42 PM EDT [facility] Comment:Unable to calculate result either because contributing result(s) are outside of reportable range or are not available. Plasma 10/07/2024 6:37 PM EDT 10/07/2024 7:06 PM EDT [facility] - 10/07/2024 7:42 PM EDT LDL cholesterol calculated using the Friedewald equation. us Gerri Peterson MD LAB BLOOD ORDERABLES Final Resu lt [facility] [address] [place] [address], [facility] * (ABNORMAL) Alpha 1 Antitrypsin AAT Quant & Mutation (10/07/2024 6:37 PM EDT) A-1 Antitrypsin 99(L) 101 - 187 mg/dL 10/09/2024 4:28 AM EDT [facility] A-1 Antitrypsin Pheno Comment 10/10/2024 4:05 PM EDT [facility] Comment: A1A Phenotype is consistent with a heterozygous phenotype consisting of one M (normal) allele and one allele that cannot be identified at this time. The unknown allele is not consistent with Z (deficient), S (deficient), or F (deficient). MM Phenotype is considered to be normal , producing normal serum levels of [id number] inhibitor and not associated with clinical disease. [...] PM EDT 10/10/2024 4:08 PM EDT Narrative [facility] - 10/10/2024 4:08 PM EDT PERFORMED AT: [facility] [address] [id number] CASE PLANNER: Bassam Khalil, PhD PHONE: [phone] PERFORMED AT: [facility] [address] [id number] CASE PLANNER: Mandy Abdul MD PHONE: [phone] us Gerri Peterson MD LAB BLOOD ORDERABLES Final Resu lt [facility] [address] * (ABNORMAL) CMV IgG Antibody (10/07/2024 6:37 PM EDT) CMV IgG Positive(A ) Negative 10/07/2024 8:26 PM EDT [facility] CMV IGG NUM 8.40(H) 0.00 - 0.59 U/mL 10/07/2024 8:26 PM EDT [facility] Serum 10/07/2024 6:37 PM EDT 10/07/2024 6:50 PM EDT Gerri Peterson MD LAB BLOOD ORDERABLES Final Resu lt [facility] [address] [facility] * HIV-1 and HIV-2 Antibodies w Reflex (10/07/2024 6:37 PM EDT) HIV 1+2 AB/AGN Nonreactive Nonreactive 10/07/2024 7:54 PM EDT [facility] Serum 10/07/2024 6:37 PM EDT 10/07/2024 7:06 PM EDT Narrative [facility] - 10/07/2024 7:54 PM EDT \HIVRNR Gerri Peterson MD LAB BLOOD ORDERABLES Final Resu lt [facility] [address] [facility]. [address] * TSH (Thyroid Stimulating Hormone) (10/07/2024 6:37 PM EDT) TSH 0.81 0.45 - 4.12 uIU/mL 10/07/2024 8:17 PM EDT [facility] Serum 10/07/2024 6:37 PM EDT 10/07/2024 6:[address] [facility] Gerri Peterson MD LAB BLOOD ORDERABLES Final Resu lt [facility] [address] [facility]. [address] * Katie-Watkins virus early antigen antibody, IgG (10/07/2024 6:37 PM EDT) EBV Early Antigen Ab, IgG <9.0 0.0 - 8.9 U/mL 10/09/2024 2:16 PM EDT [facility] Comment: Negative < 9.0 Equivocal 9.0 - 10.9 Positive >10.9 Serum Frozen 10/07/2024 6:37 PM EDT 10/09/2024 3:07 PM EDT Narrative [facility] - 10/09/2024 3:07 PM EDT PERFORMED AT: [address] [id number] CASE PLANNER: Bassam Khalil, PhD PHONE: [phone] Gerri Peterson MD LAB BLOOD ORDERABLES Final Resu lt Performing Organization Address [facility] Co de Phone Number [facility] [address] * (ABNORMAL) Varicella zoster antibody, IgG (10/07/2024 6:37 PM EDT) Varicella IgG Positive( A) Negative S/CO 10/07/2024 8:34 PM EDT [facility] Comment:Result indicates the presence of detectable VZV IgG antibodies. A positive result is generally indicative of exposure to the pathogen or administration of specific immunoglobulins, but it is no indication of active infection or stage of disease. This test is not approved for determining vaccine-induced immunity to varicella zoster virus. VZV NUM 6.76(H) 0.00 - 0.99 S/CO 10/07/2024 8:34 PM EDT [facility] Serum 10/07/2024 6:37 PM EDT 10/07/2024 6:50 PM EDT Gerri Peterson MD LAB BLOOD ORDERABLES Final Resu lt Performing Organization Address City/[facility]/ZIP Co de Phone Number [facility] [address] * Toxoplasma gondii antibody, IgG (10/07/2024 6:37 PM EDT) Toxoplasma Gondii IgG <3.0 0.0 - 7.1 IU/mL 10/09/2024 7:53 AM EDT [facility] Comment: Negative <7.2 Equivocal 7.2 - 8.7 Positive >8.7 Serum 10/07/2024 6:37 PM EDT 10/09/2024 8:07 AM EDT Narrative [facility] - 10/09/2024 8:07 AM EDT PERFORMED AT: [facility] [address] [id number] CASE PLANNER: Bassam Khaill, PhD PHONE: [phone] Gerri Peterson MD LAB BLOOD ORDERABLES Final Resu lt Performing Organization Address City/[facility]/ZIP Co de Phone Number [facility] [address] [facility]. [address] * Syphilis Screening (Trepia) (10/07/2024 6:37 PM EDT) Treponema Pallidum Negative Negative 10/07/2024 8:27 PM EDT [facility] Comment: No serological evidence of infection with Treponema pallidum (incubating or early primary syphilis cannot be excluded). Serum 10/07/2024 6:37 PM EDT 10/07/2024 6:50 PM EDT Gerri Peterson MD LAB BLOOD ORDERABLES Final Resu lt Performing Organization Address City/[facility]/ZIP Co de Phone Number [facility] [address] [facility]. [address] * Strongyloides Ab (10/07/2024 6:37 PM EDT) Strongyloides Ab Negative Negative 10/11/19 11:51 AM EDT [facility] Serum 10/07/2024 6:37 PM EDT 10/10/2024 12:07 PM EDT Narrative [facility] - 10/10/2024 12:07 PM EDT PERFORMED AT: [facility] [address] [id number] CASE PLANNER: Mandy Abdul MD PHONE: [phone] us Gerri Peterson MD LAB BLOOD ORDERABLES Final Resu lt [facility] [address] [place] [address], [facility] * Phosphatidylethanol Confirmation, B (10/07/2024 6:37 PM EDT) PETH 16:0/18.1 (POPETH) <10 Cutoff: 10 ng/mL 10/10/2024 10:42 AM EDT [facility] Comment: Phosphatidylethanol (PEth) homologues result [...] Cutoff: 10 ng/mL 10/10/2024 10:42 AM EDT [facility] Comment: PEth 16:0/18:2 (PLPEth) Reference ranges are not well established PEth Interpretation Negative. 10/10 10:42 AM EDT [facility] Comment: ADDITIONAL INFORMATION This report is intended for use in clinical monitoring and management of patients. It is not intended for use in employment-related testing. This test was developed and its performance characteristics determined by [facility] in a manner consistent with CLIA requirements. This test has not been cleared or approved by the U.S. Food and Drug Administration. Test Performed by: [id number] [place] [address] Chain Maker: Kathy Ortiz Ph.D.; CLIA# [id number] Whole Blood 10/07/2024 6:37 PM EDT 10/10/2024 10:42 AM EDT Gerri Peterson MD LAB BLOOD ORDERABLES Final Resu lt [facility] [address] * (ABNORMAL) MMR(IgG) Panel (Measles, Mumps, Rubella) (10/07/2024 6:37 PM EDT) Mumps IgG Positive 10/07/2024 8:26 PM EDT [facility] MUMPS IGG NUM 77.80(H) 0.0 - 8.9 U/mL 10/07/2024 8:26 PM EDT [facility] Rubella IgG Scr Positive 10/07/2024 8:28 PM EDT [facility] RUB NUM 3.04(H) 0.00 - 0.89 INDEX 10/07/2024 8:28 PM EDT [facility] Rubeola Ab, IgG Positive 10/07/2024 8:26 PM EDT [facility] RUB IGG NUM 192.00(H) 0.00 - 13.40 U/mL 10/07/2024 8:26 PM EDT [facility] Serum 10/07/2024 6:37 PM EDT 10/07/2024 6:50 PM EDT Narrative [facility] - 10/07/2024 8:28 PM EDT [...] MD LAB BLOOD ORDERABLES Final Resu lt [facility] [address] * IgA (10/07/2024 6:37 PM EDT) IgA 227.0 70.0 - 400.0 mg/dL 10/08/2024 11:07 AM EDT [facility] Comment:Please interpret the se findings in conjunction with clinical findings, protein electrophoresis, and immunotyping/immunofixation results. Serum 10/07/2024 6:37 PM EDT 10/07/2024 6:[address] [facility] Gerri Peterson MD LAB BLOOD ORDERABLES Final Resu lt Performing Organization Address City/[facility]/ZIP Co de Phone Number [facility] [address] [facility]. [address] * Ethanol, Serum (10/07/2024 6:37 PM EDT) Ethanol <10 0 - 10 mg/dL 10/07/2024 8:36 PM EDT [facility] Serum 10/07/2024 6:37 PM EDT 10/07/2024 6:[address] [facility] Gerri Peterson MD LAB BLOOD ORDERABLES Final Resu lt Performing Organization Address [facility]/ZIP Co de Phone Number [facility] [address] [facility]. [address] * ABO/Rh - Second (10/07/2024 6:37 PM EDT) ABO Grouping O 10/07/2024 7:16 PM EDT [facility] Rh Type Positive 10/07/2024 7:16 PM EDT [facility] Blood 10/07/2024 6:37 PM EDT 10/07/2024 6:56 PM EDT Narrative [facility] - 10/07/2024 7:18 PM EDT This is not a duplicate order. It is required that ABO be drawn twice for LIVER TRANSPLANT Result [facility] Gerri Peterson MD BLOOD BANK TEST ORDERABLES Denisse l Result Performing Organization Address City/[facility]/ZIP Co de Phone Number [facility] [address] [facility] [facility]. [address] * ABO/Rh- Initial (10/07/2024 6:37 PM EDT) ABO Grouping O 10/07/2024 7:59 PM EDT [facility] Rh Type Positive 10/07/2024 7:59 PM EDT [facility] Blood 10/07/2024 6:37 PM EDT 10/07/2024 7:25 PM EDT Gerri Peterson MD BLOOD BANK TEST ORDERABLES Denisse l Result [facility] [address] [place] [address] * X-ray Mandible minimum 4-views (10/07/2024 [...] EXAM: US ABDOMEN COMPLETE EXAM: US DUPLEX [id number] COMPLETE INDICATION: elevated bilirubin COMPARISON: Ultrasound and [...] EXAM: US ABDOMEN COMPLETE EXAM: US DUPLEX [id number] COMPLETE INDICATION: elevated bilirubin COMPARISON: Ultrasound and [...] 4:26 PM EDT us Bisi Hernandez DO [facility] US ORDERABLES Final Result * US Duplex Bif-Zke-Oranagd Comp (10/07/2024 3:48 PM EDT) Anatomical Region [...] EXAM: US ABDOMEN COMPLETE EXAM: US DUPLEX [id number] COMPLETE INDICATION: elevated bilirubin COMPARISON: Ultrasound and [...] EXAM: US ABDOMEN COMPLETE EXAM: US DUPLEX [id number] COMPLETE INDICATION: elevated bilirubin COMPARISON: Ultrasound and [...] - 15.1 seconds 10/07/2024 6:55 AM EDT [facility] INR 2.4(H) 0.9 - 1.1 10/07/2024 6:55 AM EDT [facility] Comment: RECOMMENDED THERAPEUTIC RANGES USING INR : Stable oral anticoagulant therapy: 2.0 - 3.0 Mechanical prosthetic heart valve: 2.5 - 3.5 Recurrent acute myocardial infarction: 2.5 - 3.5 Plasma 10/07/2024 6:00 AM EDT 10/07/2024 6:39 AM EDT us Eileen Schroeder MD, PhD LAB BLOOD ORDERABLES Final Result Performing Organization Address City/State/[facility] Co de Phone Number [facility] [address] * (ABNORMAL) Hepatic Function Panel (10/07/2024 6:00 AM EDT) Total Bilirubin 9.7(H) 0.0 - 1.5 mg/dL 10/07/2024 7:10 AM EDT [facility] Bilirubin, Direct 5.21(H) 0.00 - 0.40 mg/dL 10/07/2024 7:10 AM EDT [facility] AST 39 13 - 39 U/L 10/07/2024 7:10 AM EDT [facility] ALT 18 7 - 52 U/L 10/07/2024 7:10 AM EDT [facility] Alkaline Phosphatase 98 36 - 125 U/L 10/07/2024 7:10 AM EDT [facility] Total Protein 4.8(L) 6.4 - 8.9 g/dL 10/07/2024 7:10 AM EDT [facility] Albumin 3.6 3.5 - 5.7 g/dL 10/07/2024 7:10 AM EDT [facility] Bilirubin, Indirect 4.49(H) 0.00 - 1.10 mg/dL 10/07/2024 7:10 AM EDT [facility] Plasma 10/07/2024 6:00 AM EDT 10/07/2024 6:39 AM EDT Eileen Schroeder MD, PhD LAB BLOOD ORDERABLES Final Result Performing Organization Address [facility]/ZIP Co de Phone Number [facility] [address] [facility]. [address] * Magnesium (10/07/2024 6:00 AM EDT) Magnesium 1.7 1.5 - 2.5 mg/dL 10/07/2024 7:10 AM EDT [facility] Plasma 10/07/2024 6:00 AM EDT 10/07/2024 6:39 AM EDT Eileen Schroeder MD, PhD LAB BLOOD ORDERABLES Final Result Performing Organization Address [facility] Co de Phone Number [facility] [address] * (ABNORMAL) Renal Function Panel w/EGFR (10/07/2024 6:00 AM EDT) Sodium 132(L) 133 - 146 mmol/L 10/07/2024 7:10 AM EDT [facility] Potassium 3.9 3.5 - 5.3 mmol/L 10/07/2024 7:10 AM EDT [facility] Chloride 103 98 - 110 mmol/L 10/07/2024 7:10 AM EDT [facility] CO2 19(L) 21 - 33 mmol/L 10/07/2024 7:10 AM EDT [facility] Anion Gap 10 3 - 16 mmol/L 10/07/2024 7:10 AM EDT [facility] BUN 64(H) 7 - 25 mg/dL 10/07/2024 7:10 AM EDT [facility] Creatinine 3.38(H) 0.60 - 1.30 mg/dL 10/07/2024 7:10 AM EDT [facility] Glucose 111(H) 70 - 100 mg/dL 10/07/2024 7:10 AM EDT [facility] Calcium 9.1 8.6 - 10.3 mg/dL 10/07/2024 7:10 AM EDT [facility] Phosphorus 4.2 2.1 - 4.7 mg/dL 10/07/2024 7:10 AM EDT [facility] Albumin 3.6 3.5 - 5.7 g/dL 10/07/2024 7:10 AM EDT [facility] Osmolality, Calculated 293 278 - 305 mOsm/kg 10/07/2024 7:10 AM EDT [facility] EGFR 22 10/07/2024 7:10 AM EDT [facility] Comment:As of 2021, the estimated [...] MD, PhD LAB BLOOD ORDERABLES Final Result [facility] [address] [place] [address], [facility] * (ABNORMAL) CBC (10/07/2024 6:00 AM EDT) WBC 3.3(L) 3.8 - 10.8 10E3/uL 10/07/2024 7:55 AM EDT [facility] RBC 2.06(L) 4.20 - 5.80 10E6/uL 10/07/2024 7:55 AM EDT [facility] Hemoglobin 7.4(L) 13.2 - 17.1 g/dL 10/07/2024 7:55 AM EDT [facility] Hematocrit 21.5(L) 38.5 - 50.0 % 10/07/2024 7:55 AM EDT [facility] MCV 104.1(H) 80.0 - 100.0 fL 10/07/2024 7:55 AM EDT [facility] MCH 35.8(H) 27.0 - 33.0 pg 10/07/2024 7:55 AM EDT [facility] MCHC 34.4 32.0 - 36.0 g/dL 10/07/2024 7:55 AM EDT [facility] RDW 17.5(H) 11.0 - 15.0 % 10/07/2024 7:55 AM EDT [facility] Platelets 35(L) 140 - 400 10E3/uL 10/07/2024 7:55 AM EDT [facility] Comment: Specimen checked for clots. None detected. Slide Reviewed for PLT Clumps. None Seen. _Platelet Morphology Normal _Platelets Appear Decreased Platelet Estimate Decreased 10/07/2024 7:55 AM EDT [facility] MPV 8.0 7.5 - 11.5 fL 10/07/2024 7:55 AM EDT [facility] Whole Blood 10/07/2024 6:00 AM EDT 10/07/2024 6:40 AM EDT Narrative [facility] - 10/07/2024 7:55 AM EDT Peripheral blood smear was scanned per review criteria approved by the laboratory medical insurance verifier. us Eileen Schroeder MD, PhD LAB BLOOD ORDERABLES Final Result [facility] [address] * AFP Tumor Marker (10/07/2024 6:00 AM EDT) [facility] AFP-Tumor Marker 2.0 0.0 - 9.0 ng/mL 10/07/2024 7:11 AM EDT [facility] Serum 10/07/2024 6:00 AM EDT 10/07/2024 6:39 AM EDT Narrative [facility] - 10/07/2024 7:11 AM EDT The testing method for AFP is a chemiluminescent immunoassay manufactured by [employer] Concentrations of AFP obtained by different assay methods or kits may vary and cannot be used interchangeably. AFP results cannot be interpreted as absolute evidence of the presence or absence of malignant disease. Shila Rivera MD LAB BLOOD ORDERABLES Final Resul t Performing Organization Address City/[facility]/ZIP Co de Phone Number [facility] [address] [facility]. [address] * Vancomycin, random (10/07/2024 6:00 AM EDT) [facility] Vancomycin Random 21.1 ug/mL 10/07/2024 7:08 AM EDT [facility] Comment:Reference range not established for this test. Plasma 10/07/2024 6:00 AM EDT 10/07/2024 6:39 AM EDT Kiet Gardiner PharmD LAB BLOOD ORDERABLES Final Re sult [facility] [address] [facility]. [address] * Osmolality (10/06/2024 2:50 PM EDT) [facility] Osmolality, Measured 304 278 - 305 mOsm/kg 10/06/2024 3:49 PM EDT [facility] Serum 10/06/2024 2:50 PM EDT 10/06/2024 2:56 PM EDT Chari Vanegas MD LAB BLOOD ORDERABLES Final Resul t [facility] [address] [place] [address], [facility] * CT Head WO contrast [...] Ur <15 mmol/L 10/06/2024 1:56 PM EDT [facility] Comment:Reference range not established for this test. Urine 10/06/2024 1:25 PM EDT 10/06/2024 1:32 PM EDT Chari Vanegas MD URINE ORDERABLES Final Result Performing Organization Address [facility] de Phone Number [facility] [address] [place] [address] * Potassium, urine, random (10/06/2024 1:25 PM EDT) Potassium Urine Random 50.0 mmol/L 10/06/2024 1:56 PM EDT [facility] Comment:Reference range not established for this test. Urine 10/06/2024 1:25 PM EDT 10/06/2024 1:32 PM EDT Chari Vanegas MD URINE ORDERABLES Final Result Performing Organization Address [facility] de Phone Number [facility] [address] [facility]. [address] * Sodium, urine, random (10/06/2024 1:25 PM EDT) Sodium, Ur <10 mmol/L 10/06/2024 1:56 PM EDT [facility] Comment:Reference range not established for this test. Urine 10/06/2024 1:25 PM EDT 10/06/2024 1:32 PM EDT Chari Vanegas MD URINE ORDERABLES Final Result Performing Organization Address [facility]/State/ZIP Co de Phone Number [facility] [address] * Creatinine, Urine, Random (10/06/2024 1:25 PM EDT) Creatinine, Urine 87.40 mg/dL 10/06/2024 1:56 PM EDT [facility] Comment:Reference range not established for this test. Urine 10/06/2024 1:25 PM EDT 10/06/2024 1:32 PM EDT us Chari Vanegas MD URINE ORDERABLES Final Result Performing Organization Address City/[facility]/ZIP Co de Phone Number [facility] [address] [facility]. [address] * Osmolality, Urine (10/06/2024 1:25 PM EDT) Osmolality, Ur 386 50 - 1,200 mOsm/kg 10/06/2024 1:55 PM EDT [facility] Urine 10/06/2024 1:25 PM EDT 10/06/2024 1:32 PM EDT us Chari Vanegas MD URINE ORDERABLES Final Result Performing Organization Address [facility] Co de Phone Number [facility] [address] [facility]. [address] * Urine Drug Confirmation (10/06/2024 11:51 AM EDT) BARBITURATES NOT PRESENT 10/09/2024 3:23 PM EDT [facility] Comment:Results were recheck ed. BENZODIAZEPINES PRESENT 3:23 PM EDT [facility] Nordiazepam 3 ng/mL 10/09/2024 3:23 PM EDT [facility] Comment:Results were recheck ed. Temazepam 8 ng/mL 10/09/2024 3:23 PM EDT [facility] Comment:Results were recheck ed. CANNABINOIDS NOT PRESENT 10/09/2024 3:23 PM EDT [facility] SUPERVISOR DOCK STIMULANTS NOT PRESENT 3:23 PM EDT [facility] OPIOID ANALGESICS PRESENT 025 3:23 PM EDT [facility] Oxycodone 329 ng/mL 10/09/2024 3:23 PM EDT [facility] Oxymorphone 61 ng/mL 10/09/2024 3:23 PM EDT [facility] Tramadol >1000 ng/mL 10/09/2024 3:23 PM EDT [facility] OPIOID ANTAGONISTS NOT PRESENT 10/09 3:23 PM EDT [facility] SEDATIVES/MUSCLE RELAXANTS NOT PRESENT 10/09/2024 3:23 PM EDT [facility] TRICYCLIC ANTIDEPRESSANTS NOT PRESENT 10/09/2024 3:23 PM EDT [facility] Urine 10/06/2024 11:5 1 AM EDT 10/06/2024 1:13 PM EDT us Bisi Hernandez DO URINE ORDERABLES Final Result Performing Organization Address City/State/[facility] Co de Phone Number [facility] [address] * (ABNORMAL) Urine Drug Screen Reflex to Confirmation (10/06/2024 11:51 AM EDT) Amphetamine, 500 ng/mL Cutoff Negative Negative 10/06/2024 1:13 PM EDT [facility] Barbiturates UR, 300 ng/mL Cutoff Negative Negative 10/06/2024 1:13 PM EDT [facility] Buprenorphine, 5 ng/mL Cutoff Negative Negative 10/06/2024 1:13 PM EDT [facility] Benzodiazepines UR, 300 ng/mL Cutoff Negative Negative 10/06/2024 1:13 PM EDT [facility] Cocaine UR, 300 ng/mL Cutoff Negative Negative 10/06/2024 1:13 PM EDT [facility] Methadone, UR, 300 ng/mL Cutoff Negative Negative 10/06/2024 1:13 PM EDT [facility] Opiates UR, 300 ng/mL Cutoff Negative Negative 10/06/2024 1:13 PM EDT [facility] Oxycodone, 100 ng/mL Cutoff Presumptive Positive(A) Negative 10/06/2024 1:13 PM EDT [facility] Tricyclic Antidepressants, 300 ng/mL Cutoff Negative Negative 10/06/2024 1:13 PM EDT [facility] Comment:This test has been d eveloped and its performance characteristics determined by [facility] which is certified under [...] Cutoff Negative Negative 10/06/2024 1:13 PM EDT [facility] Comment:This is a screening method only and may be associated with false positive and/or false negative results. Results are not definitive without additional confirmatory testing by mass spectrometry. Fentanyl, 2 ng/mL Cutoff Negative Negative 10/06/2024 1:13 PM EDT [facility] Comment:This test has been d eveloped and its performance characteristics determined by [facility] which is certified under [...] AM EDT 10/06/2024 11:58 AM EDT Narrative [facility] - 10/06/2024 1:13 PM EDT CONFIRMATION TO FOLLOW Bisi Hernandez DO URINE ORDERABLES Final Result [facility] [address] * Chloride, urine, random (10/06/2024 11:51 AM EDT) Chloride, Ur <15 mmol/L 10/06/2024 1:13 PM EDT [facility] Comment:Reference range not established for this test. Urine 10/06/2024 11:5 1 AM EDT 10/06/2024 11:57 AM EDT us Bisi Hernandez DO URINE ORDERABLES Final Result Performing Organization Address [facility]/ZIP Co de Phone Number [facility] [address] * Potassium, urine, random (10/06/2024 11:51 AM EDT) Potassium Urine Random 49.0 mmol/L 10/06/2024 1:13 PM EDT [facility] Comment:Reference range not established for this test. Urine 10/06/2024 11:5 1 AM EDT 10/06/2024 11:57 AM EDT Bisi Hernandez DO URINE ORDERABLES Final Result Performing Organization Address [facility] Co de Phone Number [facility] [address] * Sodium, urine, random (10/06/2024 11:51 AM EDT) Sodium, Ur <10 mmol/L 10/06/2024 1:13 PM EDT [facility] Comment:Reference range not established for this test. Urine 10/06/2024 11:5 1 AM EDT 10/06/2024 11:57 AM EDT Bisi Hernandez DO URINE ORDERABLES Final Result Performing Organization Address [facility] Co de Phone Number [facility] [address] * Urinalysis w/Rfl to Microscopic (10/06/2024 11:51 AM EDT) Color, UA Yellow Yellow,Straw 10/06/2024 12:25 PM EDT [facility] Clarity, UA Clear Clear 10/06/2024 12:25 PM EDT [facility] Specific [place], UA 1.014 1.005 - 1.035 10/06/2024 12:25 PM EDT [facility] pH, UA 6.0 5.0 - 8.0 10/06/2024 12:25 PM EDT [facility] Protein, UA Negative Negative mg/dL 10/06/2024 12:25 PM EDT [facility] Glucose, UA Negative Negative mg/dL 10/06/2024 12:25 PM EDT [facility] Ketones, UA Negative Negative mg/dL 10/06/2024 12:25 PM EDT [facility] Bilirubin, UA Negative Negative 10/06/2024 12:25 PM EDT [facility] Blood, UA Negative Negative 10/06/2024 12:25 PM EDT [facility] Nitrite, UA Negative Negative 10/06/2024 12:25 PM EDT [facility] Urobilinogen, UA <2.0 0.2 - 1.9 mg/dL 10/06/2024 12:25 PM EDT [facility] Leukocyte Esterase, UA Negative Negative 10/06/2024 12:25 PM EDT [facility] Urine 10/06/2024 11:5 1 AM EDT 10/06/2024 11:57 AM EDT Narrative [facility] - 10/06/2024 12:25 PM EDT Microscopic testing is not performed when the dipstick is negative for blood, leukocyte, protein and nitrite. us Bisi Hernandez DO URINE ORDERABLES Final Result Performing Organization Address [facility] Co de Phone Number [facility] [address] * Lactic Acid, STAT (10/06/2024 7:38 AM EDT) Lactate 0.9 0.5 - 2.2 mmol/L 10/06/2024 8:05 AM EDT [facility] Plasma 10/06/2024 7:38 AM EDT 10/06/2024 7:42 AM EDT us Chari Vanegas MD LAB BLOOD ORDERABLES Final Resul t Performing Organization Address City/[facility] Co de Phone Number [facility] [address] * (ABNORMAL) CBC, STAT (10/06/2024 7:37 AM EDT) WBC 5.6 3.8 - 10.8 10E3/uL 10/06/2024 8:22 AM EDT [facility] RBC 2.50(L) 4.20 - 5.80 10E6/uL 10/06/2024 8:22 AM EDT [facility] Hemoglobin 9.0(L) 13.2 - 17.1 g/dL 10/06/2024 8:22 AM EDT [facility] Hematocrit 25.3(L) 38.5 - 50.0 % 10/06/2024 8:22 AM EDT [facility] MCV 101.2(H) 80.0 - 100.0 fL 10/06/2024 8:22 AM EDT [facility] MCH 36.0(H) 27.0 - 33.0 pg 10/06/2024 8:22 AM EDT [facility] MCHC 35.6 32.0 - 36.0 g/dL 10/06/2024 8:22 AM EDT [facility] RDW 17.7(H) 11.0 - 15.0 % 10/06/2024 8:22 AM EDT [facility] Platelets 52(L) 140 - 400 10E3/uL 10/06/2024 8:22 AM EDT [facility] Comment: Specimen checked for clots. None detected. Slide Reviewed for PLT Clumps. None Seen. MPV 8.2 7.5 - 11.5 fL 10/06/2024 8:22 AM EDT [facility] Whole Blood 10/06/2024 7:37 AM EDT 10/06/2024 7:43 AM EDT us Chari Vanegas MD LAB BLOOD ORDERABLES Final Resul t [facility] [address] [place] [address], [facility] * (ABNORMAL) Comprehensive Metabolic Panel (10/06/2024 7:37 AM EDT) Sodium 129(L) 133 - 146 mmol/L 10/06/2024 8:16 AM EDT [facility] Potassium 4.4 3.5 - 5.3 mmol/L 10/06/2024 8:16 AM EDT [facility] Chloride 100 98 - 110 mmol/L 10/06/2024 8:16 AM EDT [facility] CO2 18(L) 21 - 33 mmol/L 10/06/2024 [facility] Anion Gap 11 3 - 16 mmol/L 10/06/2024 8:16 AM T [facility] BUN 62(H) 7 - 25 mg/dL 10/06/2024 8:16 AM T [facility] Creatinine 3.40(H) 0.60 - 1.30 mg/dL 10/06/2024 8:16 AM T [facility] Glucose 98 70 - 100 mg/dL 10/06/2024 8:16 AM T [facility] Calcium 9.5 8.6 - 10.3 mg/dL 10/06/2024 8:16 AM [facility] Total Bilirubin 14.3(H) 0.0 - 1.5 mg/dL 10/06/2024 8:16 AM T [facility] AST 57(H) 13 - 39 U/L 10/06/2024 8:16 AM T [facility] ALT 29 7 - 52 U/L 10/06/2024 8:16 AM [facility] Alkaline Phosphatase 158(H) 36 - 125 U/L 10/06/2024 8:16 AM [facility] Total Protein 5.6(L) 6.4 - 8.9 g/dL 10/06/2024 8:16 AM [facility] Albumin 3.6 3.5 - 5.7 g/dL 10/06/2024 8:16 AM [facility] Osmolality, Calculated 286 278 - 305 mOsm/kg 10/06/2024 8:16 AM [facility] EGFR 22 10/06/2024 8:16 AM [facility] Comment:As of 2021, the estimated [...] MD LAB BLOOD ORDERABLES Final Resul t [facility] [address] [place] [address], [facility] * (ABNORMAL) Venous Blood Gas, Line/Syringe, STAT (10/06/2024 7:37 AM EDT) PH-Line Draw 7.27(L) 7.32 - 7.42 10/06/2024 7:46 AM EDT [facility] PCO2-Line Draw 36(L) 41 - 51 mm Hg 10/06/2024 7:46 AM EDT [facility] PO2-Line Draw 44(H) 25 - 40 mm Hg 10/06/2024 7:46 AM EDT [facility] HCO3-Line Draw 17(L) 24 - 28 mmol/L 10/06/2024 7:46 AM EDT [facility] CO2 Content-Line Draw 18(L) 25 - 29 mmol/L 10/06/2024 7:46 AM EDT [facility] Base Excess-Line Draw -9.6(L) -2.0 - 3.0 mmol/L 10/06/2024 7:46 AM EDT [facility] %HBO2-Line Draw 69.8 40.0 - 70.0 % 10/06/2024 7:46 AM EDT [facility] Carboxyhgb-Ludivina e Draw 0.7 % 10/06/2024 7:46 AM EDT [facility] Comment: CARBOXYHEMOGLOBIN (CO) REFERENCE RANGES: Non-Smokers: <2 % Smokers: <8 % TOXIC: >20 % Methemoglobin- Line Draw 0.3 0.0 - 1.5 % 10/06/2024 7:46 AM EDT [facility] Reduced Hemoglobin-Ludivina e Draw 29.2(H) 0.0 - 5.0 % 10/06/2024 7:46 AM EDT [facility] Venous, Line Draw 10/06/2024 7:37 AM EDT 10/06/2024 7:43 AM EDT Chari Vanegas MD LAB BLOOD ORDERABLES Final Resul t [facility] [address] [place] [address], [facility] * (ABNORMAL) Venous Blood Gas, Line/Syringe, STAT (10/06/2024 4:03 AM EDT) PH-Line Draw 7.21(L) 7.32 - 7.42 10/06/2024 4:16 AM EDT [facility] PCO2-Line Draw 41 41 - 51 mm Hg 10/06/2024 4:16 AM EDT [facility] PO2-Line Draw 32 25 - 40 mm Hg 10/06/2024 4:16 AM EDT [facility] HCO3-Line Draw 16(L) 24 - 28 mmol/L 10/06/2024 4:16 AM EDT [facility] CO2 Content-Line Draw 18(L) 25 - 29 mmol/L 10/06/2024 4:16 AM EDT [facility] Base Excess-Line Draw -10.8(L) -2.0 - 3.0 mmol/L 10/06/2024 4:16 AM EDT [facility] %HBO2-Line Draw 47.5 40.0 - 70.0 % 10/06/2024 4:16 AM EDT [facility] Carboxyhgb-Ludivina e Draw 2.0 % 10/06/2024 4:16 AM EDT [facility] Comment: CARBOXYHEMOGLOBIN (CO) REFERENCE RANGES: Non-Smokers: <2 % Smokers: <8 % TOXIC: >20 % Methemoglobin- Line Draw 0.7 0.0 - 1.5 % 10/06/2024 4:16 AM EDT [facility] Reduced Hemoglobin-Ludivina e Draw 49.8(H) 0.0 - 5.0 % 10/06/2024 4:16 AM EDT [facility] [facility] Venous, Line Draw 10/06/2024 4:03 AM EDT 10/06/2024 4:12 AM EDT [employer] LAB BLOOD ORDERABLES Final Resul t Performing Organization Address [facility] de Phone Number [facility] [address] [facility]. [address] * (ABNORMAL) Protime-INR (10/06/2024 4:01 AM EDT) Protime 21.3(H) 12.1 - 15.1 seconds 10/06/2024 4:40 AM EDT [facility] INR 1.8(H) 0.9 - 1.1 10/06/2024 4:40 AM EDT [facility] Comment: RECOMMENDED THERAPEUTIC RANGES USING INR : Stable oral anticoagulant therapy: 2.0 - 3.0 Mechanical prosthetic heart valve: 2.5 - 3.5 Recurrent acute myocardial infarction: 2.5 - 3.5 Plasma 10/06/2024 4:01 AM EDT 10/06/2024 4:11 AM EDT [facility] BLOOD ORDER[facility]LES Final Resul t Performing Organization Address [facility] de Phone Number [facility] [address] [facility]. [address] * (ABNORMAL) Hepatic Function Panel, AM (10/06/2024 4:01 AM EDT) Total Bilirubin 14.7(H) 0.0 - 1.5 mg/dL 10/06/2024 4:57 AM EDT [facility] Bilirubin, Direct 7.08(H) 0.00 - 0.40 mg/dL 10/06/2024 4:57 AM EDT [facility] AST 60(H) 13 - 39 U/L 10/06/2024 4:57 AM EDT [facility] ALT 31 7 - 52 U/L 10/06/2024 4:57 AM EDT [facility] Alkaline Phosphatase 162(H) 36 - 125 U/L 10/06/2024 4:57 AM EDT [facility] Total Protein 5.3(L) 6.4 - 8.9 g/dL 10/06/2024 4:57 AM EDT [facility] Albumin 3.4(L) 3.5 - 5.7 g/dL 10/06/2024 4:57 AM EDT [facility] Bilirubin, Indirect 7.62(H) 0.00 - 1.10 mg/dL 10/06/2024 4:57 AM EDT [facility] Plasma 10/06/2024 4:01 AM EDT 10/06/2024 4:22 AM EDT [employer] LAB BLOOD ORDERABLES Final Resul t Performing Organization Address City/[facility] de Phone Number [facility] [address] * Magnesium (10/06/2024 4:01 AM EDT) Magnesium 1.8 1.5 - 2.5 mg/dL 10/06/2024 4:57 AM EDT [facility] Plasma 10/06/2024 4:01 AM EDT 10/06/2024 4:22 AM EDT [facility] LAB BLOOD ORDERABLES Final Resul t Performing Organization Address City/[facility] Co de Phone Number [facility] [address] * (ABNORMAL) Renal Function Panel w/EGFR (10/06/2024 4:01 AM EDT) Sodium 129(L) 133 - 146 mmol/L 10/06/2024 4:57 AM EDT [facility] Potassium 4.7 3.5 - 5.3 mmol/L 10/06/2024 4:57 AM EDT [facility] Chloride 100 98 - 110 mmol/L 10/06/2024 4:57 AM EDT [facility] CO2 16(L) 21 - 33 mmol/L 10/06/2024 4:57 AM EDT [facility] Anion Gap 13 3 - 16 mmol/L 10/06/2024 4:57 AM EDT [facility] BUN 61(H) 7 - 25 mg/dL 10/06/2024 4:57 AM EDT [facility] Creatinine 3.49(H) 0.60 - 1.30 mg/dL 10/06/2024 4:57 AM EDT [facility] Glucose 104(H) 70 - 100 mg/dL 10/06/2024 4:57 AM EDT [facility] Calcium 9.2 8.6 - 10.3 mg/dL 10/06/2024 4:57 AM EDT [facility] Phosphorus 5.3(H) 2.1 - 4.7 mg/dL 10/06/2024 4:57 AM EDT [facility] Albumin 3.4(L) 3.5 - 5.7 g/dL 10/06/2024 4:57 AM EDT [facility] Osmolality, Calculated 286 278 - 305 mOsm/kg 10/06/2024 4:57 AM T [facility] EGFR 22 10/06/2024 4:57 AM T [facility] Comment:As of 2021, the estimated [...] DO LAB BLOOD ORDERABLES Final Resul t [facility] [address] * (ABNORMAL) CBC (10/06/2024 4:01 AM EDT) WBC 7.6 3.8 - 10.8 10E3/uL 10/06/2024 5:16 AM EDT [facility] RBC 2.77(L) 4.20 - 5.80 10E6/uL 10/06/2024 5:16 AM EDT [facility] Hemoglobin 10.1(L) 13.2 - 17.1 g/dL 10/06/2024 5:16 AM EDT [facility] Hematocrit 28.4(L) 38.5 - 50.0 % 10/06/2024 5:16 AM EDT [facility] MCV 102.4(H) 80.0 - 100.0 fL 10/06/2024 5:16 AM EDT [facility] MCH 36.4(H) 27.0 - 33.0 pg 10/06/2024 5:16 AM EDT [facility] MCHC 35.5 32.0 - 36.0 g/dL 10/06/2024 5:16 AM EDT [facility] RDW 18.0(H) 11.0 - 15.0 % 10/06/2024 5:16 AM EDT [facility] Platelets 53(L) 140 - 400 10E3/uL 10/06/2024 5:16 AM EDT [facility] Comment:Specimen checked for clots. None detected. MPV 8.4 7.5 - 11.5 fL 10/06/2024 5:16 AM EDT [facility] Whole Blood 10/06/2024 4:01 AM EDT 10/06/2024 4:11 AM EDT us [employer] DO LAB BLOOD ORDERABLES Final Resul t [facility] [address] * Hepatitis C Antibody (10/06/2024 4:01 AM EDT) HCV Ab Nonreactive Nonreactive 10/06/2024 5:12 AM EDT [facility] Comment:Health Department no tified in accordance with reportable infectious disease guidelines. Serum 10/06/2024 4:01 AM EDT 10/06/2024 4:11 AM EDT Narrative [facility] - 10/06/2024 5:12 AM EDT Antibodies to HCV not detected; does not exclude the possibility of exposure to HCV. [facility] LAB BLOOD ORDERABLES Final Resul t Performing Organization Address [facility] Co de Phone Number [facility] [address] [facility]. [address] * (ABNORMAL) Hepatitis B Surface Antibody, Quantitati (10/06/2024 4:01 AM EDT) Hep B S Ab Reactive( A) Nonreactive 10/06/2024 5:16 AM EDT [facility] HBSAB NUMBER 11.50(H) 0.00 - 7.99 mIU/mL 10/06/2024 5:16 AM EDT [facility] Serum 10/06/2024 4:01 AM EDT 10/06/2024 4:11 AM EDT [facility] - 10/06/2024 5:16 AM EDT Individual is considered immune to HBV infection. [employer] LAB BLOOD ORDERABLES Final Resul t Performing Organization Address City/[facility]/ZIP Co de Phone Number [facility] [address] [facility]. [address] * Hepatitis B surface antigen (10/06/2024 4:01 AM EDT) Hep B Surface Ag Nonreactive Nonreactive 10/06/2024 5:07 AM EDT [facility] Comment:Health Department no tified in accordance with reportable infectious disease guidelines. Serum 10/06/2024 4:01 AM EDT 10/06/2024 4:11 AM EDT [facility] - 10/06/2024 5:07 AM EDT Specimen is considered negative for HBsAg. [facility] LAB BLOOD ORDERABLES Final Resul t Performing Organization Address City/[facility]/ZIP Co de Phone Number [facility] [address] [facility]. [address] * Hepatitis A Antibody Total (10/06/2024 4:01 AM EDT) Anti-HAV Total (IgG + IgM) Nonreactive 10/06/2024 5:08 AM EDT [facility] Serum 10/06/2024 4:01 AM EDT 10/06/2024 4:11 AM EDT [facility] - 10/06/2024 5:08 AM EDT HAV antibodies not detected [facility] LAB BLOOD ORDERABLES Final Resul t Performing Organization Address [facility] de Phone Number [facility] [address] [facility] * Hepatitis A IgM (10/06/2024 4:01 AM EDT) Hep A IgM Nonreactive Nonreactive 10/06/2024 5:02 AM EDT [facility] Serum 10/06/2024 4:01 AM EDT 10/06/2024 4:11 AM EDT [facility] - 10/06/2024 5:02 AM EDT IgM anti-HAV not detected. Does not exclude the possibility of exposure to or infection with HAV. Levels of IgM anti-HAV may be below the cut-off in early infection. [employer] LAB BLOOD ORDERABLES Final Resul t Performing Organization Address City/[facility]/ZIP Co de Phone Number [facility] [address] [facility]. [address] * (ABNORMAL) Salicylate Level (10/06/2024 4:01 AM EDT) [facility] Salicylate Lvl <3(L) 10 - 30 mg/dL 10/06/2024 4:58 AM EDT [facility] Serum 10/06/2024 4:01 AM EDT 10/06/2024 4:22 AM EDT [facility] BLOOD ORDERABLES Final Resul t Performing Organization Address [facility] Co de Phone Number [facility] [address] [facility] * AFP Tumor Marker (10/06/2024 4:01 AM EDT) [facility] AFP-Tumor Marker 2.6 0.0 - 9.0 ng/mL 10/06/2024 4:55 AM EDT [facility] Serum 10/06/2024 4:01 AM EDT 10/06/2024 4:22 AM EDT Narrative [facility] - 10/06/2024 4:55 AM EDT The testing method for AFP is a chemiluminescent immunoassay manufactured by [employer] Concentrations of AFP obtained by different assay methods or kits may vary and cannot be used interchangeably. AFP results cannot be interpreted as absolute evidence of the presence or absence of malignant disease. [employer] LAB BLOOD ORDERABLES Final Resul t Performing Organization Address [facility] Co de Phone Number [facility] [address] [facility] * Upper Respiratory Viral/Bacterial Panel-[place] [employer] Only (10/06/2024 3:12 AM EDT) [facility] Adenovirus Not Detected Not Detected 10/06/2024 11:38 PM EDT [facility] Coronavirus (229E,HKU1,NL63,OC 43) Not Detected Not Detected 10/06/2024 11:38 PM EDT [facility] SARS-CoV-2 Not Detected Not Detected 10/06/2024 11:38 PM EDT [facility] Human Metapneumovirus Not Detected Not Detected 10/06/2024 11:38 PM EDT [facility] Human Rhinovirus/Enterov irus Not Detected Not Detected 10/06/2024 11:38 PM EDT [facility] Influenza A Not Detected Not Detected 10/06/2024 11:38 PM EDT [facility] Influenza A H1 Not Detected Not Detected 10/06/2024 11:38 PM EDT [facility] Influenza A/H1-2009 Not Detected Not Detected 10/06/2024 11:38 PM EDT [facility] Influenza A H3 Not Detected Not Detected 10/06/2024 11:38 PM EDT [facility] Influenza B Not Detected Not Detected 10/06/2024 11:38 PM EDT [facility] Parainfluenza 1 Not Detected Not Detected 10/06/2024 11:38 PM EDT [facility] Parainfluenza 2 Not Detected Not Detected 10/06/2024 11:38 PM EDT [facility] Parainfluenza 3 Not Detected Not Detected 10/06/2024 11:38 PM EDT [facility] Parainfluenza 4 Not Detected Not Detected 10/06/2024 11:38 PM EDT [facility] Resp. Syncycial Virus A Not Detected Not Detected 10/06/2024 11:38 PM EDT [facility] Resp. Syncycial Virus B Not Detected Not Detected 10/06/2024 11:38 PM EDT [facility] Chlamydia pneumoniae Not Detected Not Detected 10/06/2024 11:38 PM EDT [facility] Mycoplasma pneumoniae Not Detected Not Detected 10/06/2024 11:38 PM EDT [facility] Comment: The Respiratory Viral-Bacterial Panel [...] sent to the [facility] in accordance with state requirements. For a fact sheet for healthcare providers, see https://www.fda.gov/media/200072/download. For a fact sheet for patients, see https://www.fda.gov/media/326648/download. Nasopharyngeal Swab NASOPHARYNGEAL SWAB / Unknown 10/06/2024 3:12 AM EDT 10/06/2024 5:41 PM EDT Comment:[employer] [employer] Bisi Mary DO BODY FLUIDS AND STOOLS ORDERABLE S Final Result [facility] [address] * X-ray Portable Chest (10/06/2024 1:16 [...] 10/06/2024 2:33 AM EDT us Bisi Hernandez [facility] ORDERABLE S Final Result * Phosphatidylethanol Confirmation, B (10/06/2024 1:04 AM EDT) PETH 16:0/18.1 (POPETH) <10 Cutoff: 10 ng/mL 10/10/2024 3:11 AM EDT [facility] Comment: Phosphatidylethanol (PEth) homologues result interpretation [...] Cutoff: 10 ng/mL 10/10/2024 3:11 AM EDT [facility] Comment: PEth 16:0/18:2 (PLPEth) Reference ranges are not well established PEth Interpretation Negative. 10/10 3:11 AM EDT [facility] Comment: ADDITIONAL INFORMATION This report is intended for use in clinical monitoring and management of patients. It is not intended for use in employment-related testing. This test was developed and its performance characteristics determined by [facility] in a manner consistent with CLIA requirements. This test has not been cleared or approved by the U.S. Food and Drug Administration. Test Performed by: [facility] [address] [place] [address] Chain Maker: Kathy Ortiz Ph.D.; CLIA# [id number] Whole Blood 10/06/2024 1:04 AM EDT 10/10/2024 3:11 AM EDT [facility] LAB BLOOD ORDERABLES Final Resul t Performing Organization Address [facility] Co de Phone Number [facility] [address] [place] [address]. [address] * (ABNORMAL) Acetaminophen Level (10/06/2024 1:04 AM EDT) Acetaminophen Level <10(L) 10 - 30 ug/mL 10/06/2024 2:08 AM EDT [facility] Serum 10/06/2024 1:04 AM EDT 10/06/2024 1:30 AM EDT [facility] LAB BLOOD ORDERABLES Final Resul t Performing Organization Address [facility] Co de Phone Number [facility] [address] [place] [address]. [address] * Ethanol, Serum (10/06/2024 1:04 AM EDT) Ethanol <10 0 - 10 mg/dL 10/06/2024 2:08 AM EDT [facility] Serum 10/06/2024 1:04 AM EDT 10/06/2024 1:30 AM EDT [facility] LAB BLOOD ORDERABLES Final Resul t Performing Organization Address [facility] Co de Phone Number [facility] [address] [place] [address]. [address] * #2 Blood culture-Peripheral site 2 (10/06/2024 1:04 AM EDT) Culture Result No Growth After 5 Days [facility] Blood BLOOD SPECIMEN / Unknown 10/06/2024 1:04 AM EDT 10/06/2024 4:57 AM EDT [facility]arr[facility] - 10/11/2024 5:05 AM EDT Suboptimal volume of blood received. Interpret results with caution. Bisi Akana maría MICROBIOLOGY - GENERAL ORDERABLE S Final Result [facility] [address] * #1 Blood culture-Peripheral site 1 (10/06/2024 1:04 AM EDT) Culture Result No Growth After 5 Days [facility] Blood BLOOD SPECIMEN / Unknown 10/06/2024 1:04 AM EDT 10/06/2024 4:57 AM EDT [facility]arr[facility] - 10/11/2024 5:01 AM EDT Suboptimal volume of blood received. Interpret results with caution. Bisi Radiusana maría MICROBIOLOGY - GENERAL ORDERABLE S Final Result Performing Organization Address City/[facility]/ZIP Co de Phone Number [facility] [address] * Ammonia (10/06/2024 1:04 AM EDT) Ammonia 77 27 - 90 ug/dL 10/06/2024 2:00 AM EDT [facility] Plasma 10/06/2024 1:04 AM EDT 10/06/2024 1:30 AM EDT Bisi [employer] mar[employer] LAB BLOOD ORDERABLES Final Resul t Performing Organization Address City/[facility]/ZIP Co de Phone Number [facility] [address] * Thyroid Function [place] (10/06/2024 1:04 AM EDT) TSH 0.84 0.45 - 4.12 uIU/mL 10/06/2024 2:20 AM EDT [facility] Serum 10/06/2024 1:04 AM EDT 10/06/2024 1:39 AM EDT us [employer] LAB BLOOD ORDERABLES Final Resul t Performing Organization Address [facility] de Phone Number [facility] [address] * (ABNORMAL) Protime-INR (10/06/2024 1:04 AM EDT) Protime 22.8(H) 12.1 - 15.1 seconds 10/06/2024 1:48 AM EDT [facility] INR 1.9(H) 0.9 - 1.1 10/06/2024 1:48 AM EDT [facility] Comment: RECOMMENDED THERAPEUTIC RANGES USING INR : Stable oral anticoagulant therapy: 2.0 - 3.0 Mechanical prosthetic heart valve: 2.5 - 3.5 Recurrent acute myocardial infarction: 2.5 - 3.5 Plasma 10/06/2024 1:04 AM EDT 10/06/2024 1:30 AM EDT [facility] LAB BLOOD ORDERABLES Final Resul t Performing Organization Address [facility] de Phone Number [facility] [address] [facility] * Lactic Acid, STAT (10/06/2024 1:04 AM EDT) Lactate 1.2 0.5 - 2.2 mmol/L 10/06/2024 1:59 AM EDT [facility] Plasma 10/06/2024 1:04 AM EDT 10/06/2024 1:30 AM EDT [facility] LAB BLOOD ORDERABLES Final Resul t [facility] [address] [place] [address], [facility] * (ABNORMAL) CBC, STAT (10/06/2024 1:04 AM EDT) WBC 7.9 3.8 - 10.8 10E3/uL 10/06/2024 2:36 AM EDT [facility] RBC 2.76(L) 4.20 - 5.80 10E6/uL 10/06/2024 2:36 AM EDT [facility] Hemoglobin 9.9(L) 13.2 - 17.1 g/dL 10/06/2024 2:36 AM EDT [facility] Hematocrit 28.0(L) 38.5 - 50.0 % 10/06/2024 2:36 AM EDT [facility] MCV 101.5(H) 80.0 - 100.0 fL 10/06/2024 2:36 AM EDT [facility] MCH 35.7(H) 27.0 - 33.0 pg 10/06/2024 2:36 AM EDT [facility] MCHC 35.2 32.0 - 36.0 g/dL 10/06/2024 2:36 AM EDT [facility] RDW 17.9(H) 11.0 - 15.0 % 10/06/2024 2:36 AM EDT [facility] Platelets 58(L) 140 - 400 10E3/uL 10/06/2024 2:36 AM EDT [facility] Comment: Specimen checked for clots. None detected. Slide Reviewed for PLT Clumps. None Seen. MPV 8.2 7.5 - 11.5 fL 10/06/2024 2:36 AM EDT [facility] Whole Blood 10/06/2024 1:04 AM EDT 10/06/2024 1:31 AM EDT us Bisi Hernandez DO LAB BLOOD ORDERABLES Final Resul t [facility] [address] [place] [address], [facility] * (ABNORMAL) Comprehensive Metabolic Panel (10/06/2024 1:04 AM ED) Sodium 127(L) 133 - 146 mmol/L 10/06/2024 2:05 AM [facility] Potassium 4.5 3.5 - 5.3 mmol/L 10/06/2024 2:05 AM [facility] Chloride 99 98 - 110 mmol/L 10/06/2024 2:05 AM [facility] CO2 18(L) 21 - 33 mmol/L 10/06/2024 2:05 AM [facility] Anion Gap 10 3 - 16 mmol/L 10/06/2024 2:05 AM [facility] BUN 59(H) 7 - 25 mg/dL 10/06/2024 2:05 AM [facility] Creatinine 3.54(H) 0.60 - 1.30 mg/dL 10/06/2024 2:05 AM [facility] Glucose 116(H) 70 - 100 mg/dL 10/06/2024 2:05 AM [facility] Calcium 9.0 8.6 - 10.3 mg/dL 10/06/2024 2:05 AM [facility] Total Bilirubin 14.8(H) 0.0 - 1.5 mg/dL 10/06/2024 2:05 AM [facility] AST 61(H) 13 - 39 U/L 10/06/2024 2:05 AM [facility] ALT 33 7 - 52 U/L 10/06/2024 2:05 AM [facility] Alkaline Phosphatase 174(H) 36 - 125 U/L 10/06/2024 2:05 AM [facility] Total Protein 5.2(L) 6.4 - 8.9 g/dL 10/06/2024 2:05 AM [facility] Albumin 3.3(L) 3.5 - 5.7 g/dL 10/06/2024 2:05 AM [facility] Osmolality, Calculated 282 278 - 305 mOsm/kg 10/06/2024 2:05 AM [facility] EGFR 21 10/06/2024 2:05 AM [facility] Comment:As of 2021, the estimated [...] DO LAB BLOOD ORDERABLES Final Resul t [facility] [address] documented in this encounter Visit Diagnoses [...] in sodium chloride 0.9 % 250 mL [id number] 1,000 mg, Intravenous, Administer over 60 Minutes, Once, Contact pharmacy if there is a question/concern of whether vancomycin should be given based on serum drug levels. Use [id number] Adapter - Mix Thoroughly Before Administration, Indication? Infection-Suspected, Site of diagnosed infections (select all that apply): Abdominal/Pelvic New Bag 10/08/2024 12:59 PM EDT 1,000 mg 250 mL/hr vancomycin (VANCOCIN) 1,500 mg in sodium chloride 0.9 % 250 mL [id number] 1,500 mg, Intravenous, Administer over 90 Minutes, Once, Contact pharmacy if there is a question/concern of whether vancomycin should be given based on serum drug levels. Use [id number] Adapter - Mix Thoroughly Before Administration, Indication? [...] documented as of this encounter Care Teams Business Process Specialist Relationship Specialty Start Date End Date Enedina Mcguire NP [address] [place] [id number] PCP - General Internal Medicine 10/05/24 documented as of this encounter
--- OUTSIDE RECORDS SUMMARY | 2024-10-10 10:36 | XMS_ITS | Encounter Summary ---
Author Organization [facility] Address [facility] [place] [address] Care Team Providers Care Hvac Instructor Name Role Phone Enedina Mcguire NP Primary Care Provider [phone] Source Comments This information has been disclosed [...] release of HIV test results or diagnoses. [id number] Health Reason for Visit * Auth/Cert (Routine) Specialty Diagnoses / Procedures Referred By Shane hernadez Referred To Contact General Internal Medicine Diagnoses [facility] [address] [place] [address] Phone: tel: Referral ID Status Reason Start Date Expiration Date Visits Re quested Visits Authorized [id number] 1 1 Encounter Details Date Type Department Care Team (Late st Contact Info) Description 10/10/2024 10:36 AM EDT - 10/10/2024 11:06 AM EDT Surgery [facility] ENDOSCOPY [address] [place] [address] Lino Soto MD [address] [place] [id number] EGD Surgery Details Date/Time Status Location OR Service Patient Class Case Class Case Type Trauma Case? 10/10/2024 10:36 AM Posted ENDOSCOPY E2 Gastroenterology Inpatient EGD/Sm Bowel Panel 1 Procedure LRB Anes Op Region Wound Class Comments EGD N/A MAC (Monitor [facility]) Clean Contaminated Surgeon Surgeon Role Service [...] Kandy Fuentes - 10/17/2024 10:29 AM EDT [facility] Care Management Discharge Summary Patient name: [...] post discharge: Not Applicable Kandy BAE RN [phone] * William Blount MD - 10/17/2024 8:50 AM EDT [facility] Inpatient Discharge Summary Patient: Julien Gilbert Age: 39 y.o. CSN: [id number] Date of Admission: 10/05/2024 Date of Discharge: [...] Case IDs Date Procedure Surgeon Location Status [id number] 10/10/24 EGD Lino Soto MD ENDOSCOPY Comp [id number] 10/14/24 Left Heart Cath Irving Matta MD [...] at 10/08/2024 1:12 PM EDT US Duplex Rbs-Yta-Pibapkm Comp Final Result IMPRESSION: ABDOMEN 1. Cirrhotic [...] 90 tablet Refills: 0 naloxone 4 mg/actuation Sharon Commonly known as: NARCAN Apply 1 spray [...] Your Medications These medications [facility] [address] [facility] [address] Hours: Sunday - Sunday: 8:00AM - 6:00PM FLUoxetine 20 MG capsule lactulose 10 gram/15 mL solution loratadine 10 mg tablet methocarbamoL 500 MG tablet midodrine 10 MG tablet naloxone 4 mg/actuation Sharon oxyCODONE 5 MG immediate release tablet Discharge [...] Order Questions: Select Supplement: Boost-1 kcal/ml supplement ([facility] only) As listed above, low sodium [...] AM EDT 10/17/2024 naloxone (NARCAN) 4 mg/actuation Sharon Apply 1 spray in one nostril if [...] Hughes MD - 10/17/2024 10:23 AM EDT [facility] HEPATOLOGY PROGRESS NOTE Name: Julien Gilbert CSN: [id number] Consulted by: Chelsy Lerner MD Reason for [...] Yes Past Week naloxone (NARCAN) 4 mg/actuation Sharon Apply 1 spray in one nostril if [...] nucleated cells, <2000 RBCs 10% Polynuclear, 90% [place] nuc. There were initial reports of gram [...] of chemical dependency treatment as outpatient. - [facility] with no obstructive coronary disease - Psych eval for PTSD With recommendation of sertraline - Given his renal dysfunction, will plan to list for [facility] when he qualifies on 10/22/2024. Labs next week - Plan for d/c today Bobby Sidhu MD Transplant Legal Activity Adjudicator Please see the body of the resident, [...] remains <30 until October 22. Waiting for [facility] today. ASSESSMENT NADIYA on CKD, last discharge [...] Staff. Jeremiah Gamino PGY4 Nephrology. Pager no. [phone] Chief Complaint No chief complaint on file. [...] Other hyperlipidemia (07/26/2024), Renal cell carcinoma ([facility]), Thrombocytopenia ([facility]), and Thyroid disease. he has a past [...] at 10/08/2024 1:12 PM EDT US Duplex Edb-Wvt-Hcgsqok Comp Final Result IMPRESSION: ABDOMEN 1. Cirrhotic [...] Order Questions: Select Supplement: Boost-1 kcal/ml supplement ([facility] only) Code Status: Full Code Signed: WILLIAM BLOUNT MD 10/16/2024, 2:16 PM Cosigned by Chelsy Lerner MD at 10/16/2024 5:38 PM EDT Associated attestation - Chelsy Lerner MD - 10/16/2024 5:38 PM EDT [facility] Medicine Attending Supervision Note Julien Gilbert was [...] another specialty or practice, other licensed professional (PT/OT/DIANETICIST/RT), or a non-medical community professional: Hepatology, Interventional [...] due to positioning during LHC on 10/14. [place] the worst in CVR, but has improved [...] Kumar, DMITRY - 10/16/2024 1:08 PM EDT [facility] Medical Nutrition Therapy Follow-Up Diet Order/Nutrition Support: Regular diet, Boost TID - Vanilla preference Pertinent Information: This is a 39 year old male history of ETOH cirrhosis d/b HE, ascites with SBP who is admitted for AMS. Precipitant of his HE likely SBP. Diagnostic paracentesis at OSH reportedly showed 61 nucleated cells, <2000 RBCs 10% Polynuclear, 90% [place] nuc. There were initial reports of gram [...] Based on CBW of 119.5 kg Kcals/day: 3389-6518 (18-21 kcals/kg) Protein g/day: 119-143 (1-1.2 g/kg) [...] Kumar RD, LD Clinical Dietitian Contact via [employer] * Jerad Hughes MD - 10/16/2024 11:03 AM EDT [facility] HEPATOLOGY PROGRESS NOTE Name: Julien Gilbert CSN: [id number] Consulted by: Chelsy Lerner MD Reason for [...] nucleated cells, <2000 RBCs 10% Polynuclear, 90% [place] nuc. There were initial reports of gram [...] 1:22 PM EDT Associated attestation - Chinedu iSdhu MD - 10/18/2024 1:22 PM EDT I [...] of chemical dependency treatment as outpatient. - [facility] with no obstructive coronary disease - Psych eval for PTSD With recommendation of sertraline - Given his renal dysfunction, will plan to list for [facility] when he qualifies on 10/22/2024. - Will follow Bobby Sidhu MD Transplant Legal Activity Adjudicator Please see the body of the resident, [...] remains <30 until October 22. Waiting for [facility] today. ASSESSMENT NADIYA on CKD, last discharge [...] COMMENT on 10/08/2024 Iron%- Iron replete PLAN -[facility] yesterday- patient remains at risk of contrast related injury on top of exisiting NADIYA for 24-48 hrs after contrast load. -He is volume overloaded -patient needs to follow up closely with nephrology after discharge Thank you for allowing us to participate in this patient's care. Discussed with Consult Staff. Jeremiah Gamino PGY4 Nephrology. Pager no. [phone] Chief Complaint No chief complaint on file. [...] at 10/08/2024 1:12 PM EDT US Duplex Giq-Ujj-Uifdwsu Comp Final Result IMPRESSION: ABDOMEN 1. Cirrhotic [...] Findings similar to prior. Report Verified by: Ablerto Rodriguez MD at 10/07/2024 4:26 PM EDT [...] not tolerate Stress ECHO on 10/09 - [facility] today -Per GI recs, started on midodrine [...] Order Questions: Select Supplement: Boost-1 kcal/ml supplement ([facility] only) Code Status: Full Code Signed: [...] another specialty or practice, other licensed professional (PT/OT/DIANETICIST/RT), or a non-medical community professional: Hepatology, Interventional [...] due to positioning during LHC on 10/14. [place] the worst in CVR, but has improved [...] Hughes MD - 10/15/2024 10:15 AM EDT [facility] HEPATOLOGY PROGRESS NOTE Name: Julien Gilbert CSN: [id number] Consulted by: Chelsy Lerner MD Reason for [...] nucleated cells, <2000 RBCs 10% Polynuclear, 90% [place] nuc. There were initial reports of gram [...] of chemical dependency treatment as outpatient. - [facility] yesterday with no obstructive coronary disease - Psych eval for PTSD and medical management - Given his renal dysfunction, will plan to list for [facility] when he qualifies on 10/22/2024. - Will follow Bobby Sidhu MD Transplant Legal Activity Adjudicator Please see the body of the resident, [...] Quan MD - 10/14/2024 2:34 PM EDT [facility] Department of Cardiovascular Health and [...] remains <30 until October 22. Waiting for [facility] today. ASSESSMENT NADIYA on CKD, last discharge creatinine 2.4 Baseline Creatinine 1.2-1.3, HRS- NADIYA as no response to holding lasix and albumin UA bland Urine lytes <10/< 15/ 50 Holding lasix give [facility] today Renal Function: Recent Labs 10/14/24 0253 [...] Staff. Jeremiah Gamino PGY4 Nephrology. Pager no. [phone] Chief Complaint No chief complaint on file. [...] Acute kidney injury superimposed on CKD ([facility]). No acute events overnight. Pt with chronic [...] at 10/08/2024 1:12 PM EDT US Duplex Mxa-Olm-Ulouxxg Comp Final Result IMPRESSION: ABDOMEN 1. Cirrhotic [...] not tolerate Stress ECHO on 10/09 - [facility] today -Per GI recs, started on midodrine [...] never required dialysis. Patient is going for [facility] today and will receive contrast, okay per [...] Order Questions: Select Supplement: Boost-1 kcal/ml supplement ([facility] only) Code Status: Full Code Signed: [...] another specialty or practice, other licensed professional (PT/OT/DIANETICIST/RT), or a non-medical community professional: Hepatology, Interventional [...] Hughes MD - 10/14/2024 7:42 AM EDT [facility] HEPATOLOGY PROGRESS NOTE Name: Julien Gilbert CSN: [id number] Consulted by: Chelsy Lerner MD Reason for [...] nucleated cells, <2000 RBCs 10% Polynuclear, 90% [place] nuc. There were initial reports of gram [...] eval ongoing. Transplant work up ongoing - [facility] today - Transplant nephrology following for consideration [...] - Will follow Bobby Sidhu MD Transplant Legal Activity Adjudicator Please see the body of the resident, [...] Staff. Jeremiah Gamino PGY4 Nephrology. Pager no. [phone] Chief Complaint No chief complaint on file. [...] Hughes MD - 10/13/2024 12:33 PM EDT [facility] HEPATOLOGY PROGRESS NOTE Name: Julien Gilbert CSN: [id number] Consulted by: Fouzia Rene MD Reason for [...] nucleated cells, <2000 RBCs 10% Polynuclear, 90% [place] nuc. There were initial reports of gram [...] eval ongoing. Transplant work up ongoing - [facility] today - Transplant nephrology following for consideration [...] - Will follow Bobby Sidhu MD Transplant Legal Activity Adjudicator Please see the body of the resident, [...] what will trigger him, like going to [employer] to eat wings. 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 Male admitted for Acute kidney injury superimposedon CKD ([facility]) Pt noted to have waxing and waning [...] kg) Body mass index is 32.07 kg/m??. [place] Body Weight: 202 lbs (91.8 kg) +/- 10% Weight History: Wt Readings from Last 10 Encounters: 10/10/24 (!) 263 lb 8 oz (119.5 kg) 09/05/24 (!) 262 lb 9.6 oz (119.1 kg) 09/02/24 (!) 258 lb (117 kg) 08/17/24 (!) 242 lb 11.2 oz (110.1 kg) 07/28/24 (!) 245 lb (111.1 kg) Estimated Nutrition Needs: Based on CBW of 119.5 kg Kcals/day: 1648-0663 (18-21 kcals/kg) Protein g/day: 119-143 (1-1-2 g/kg) [...] Dietitian - Solid Organ Transplant Contact via [employer] Chat * Eileen Schroeder MD, PhD - [...] at 10/08/2024 1:12 PM EDT US Duplex Kck-Hzt-Hjksipt Comp Final Result IMPRESSION: ABDOMEN 1. Cirrhotic [...] Order Questions: Select Supplement: Boost-1 kcal/ml supplement ([facility] only) Code Status: Full Code Signed: [...] reviewed the documentation by the medical steam table attendant and agree as documented. Any additions or [...] was non-diagnostic due to hypotension. Plan for [facility] today, but now moved to tomorrow. - [...] when medically ready. Consider d/c home after [facility] tomorrow. FOUZIA RENE MD Attending Physician Department of Internal Medicine 10/13/2024 Medical Decision Making: // LEVEL 2 MOD One chronic illness with exacerbation, progression, or side effects of treatment Discussed with physician/SAWYER from another specialty or practice, other licensed professional (PT/OT/DIANETICIST/RT), or a non-medical community professional: Nephrology, Hepatology [...] at 10/08/2024 1:12 PM EDT US Duplex Cos-Tkg-Phpvhwq Comp Final Result IMPRESSION: ABDOMEN 1. Cirrhotic [...] Order Questions: Select Supplement: Boost-1 kcal/ml supplement ([facility] only) Code Status: Full Code Signed: [...] reviewed the documentation by the medical steam table attendant and agree as documented. Any additions or clarifications are listed below. Daily plan was discussed with patient at bedside and questions addressed. Patient ID: Julien Gilbert is a 39 y.o. male currently admitted for Acute kidney injury superimposed on CKD ([facility]) Supplemental History/ ROS: No acute events overnight [...] Acute kidney injury superimposed on CKD ([facility]) Active Problems: NADIYA (acute kidney injury) on [...] another specialty or practice, other licensed professional (PT/OT/DIANETICIST/RT), or a non-medical community professional: Nephrology, Hepatology [...] tid. cardiac workup pre txp. pLan for [facility] Sunday Liver transplant workup per GI/ Primary [...] concern for hepatorenal syndrome.` Patient came from [facility], paracentesis was performed yesterday on [...] 706.9 (H) 10/08/2024 No results found for: [id number] , FOLATE Lab Results Component Value Date [...] CRUR No results found for: MICROALBUR , [id number] In addition to the above an extensive [...] 4.6 10/12/2024 Lab Results Component Value Date BXQR07L 7.1 (L) 10/08/2024 PLAN Monitor renal panel [...] AM Colten Huertas MD, KISHOR LIN, CATHYF day spa manager Div. of Nephrology [facility] E-mail: [email or web address] This note was completely [...] Rene MD Interval hx No issues. Pending [facility]. Assessment: Renal Function: Cr: 2.77 Bun: 49 [...] tid. cardiac workup pre txp. pLan for [facility] Sunday 4. Liver transplant workup per GI/ [...] concern for hepatorenal syndrome.` Patient came from [facility], paracentesis was performed yesterday on [...] 706.9 (H) 10/08/2024 No results found for: [id number] , FOLATE Lab Results Component Value Date [...] CRUR No results found for: MICROALBUR , [id number] In addition to the above an extensive [...] 3.5 10/11/2024 Lab Results Component Value Date UUES87S 7.1 (L) 10/08/2024 PLAN Monitor renal panel [...] AM Colten Huertas MD, KISHOR LIN FNKF day spa manager Div. of Nephrology [facility] E-mail: [email or web address] This note was completely [...] at 10/08/2024 1:12 PM EDT US Duplex Ypw-Sac-Tqodwys Comp Final Result IMPRESSION: ABDOMEN 1. Cirrhotic [...] from outside facility. Will engage with them daily([phone]. Ask to speak to a tech) about [...] Order Questions: Select Supplement: Boost-1 kcal/ml supplement ([facility] only) Code Status: Full Code Signed: [...] reviewed the documentation by the medical steam table attendant and agree as documented. Any additions or [...] d/c home after LHC on Sunday. FOUZIA RNEE MD Attending Physician Department of Internal Medicine 10/11/2024 Medical Decision Making: // LEVEL 3 HIGH Acute or chronic illness that may pose threat to life or function Discussed with physician/SAWYER from another specialty or practice, other licensed professional (PT/OT/DIANETICIST/RT), or a non-medical community professional: Nephrology, Hepatology, Transplant Surgery Labs reviewed (1 pt each): CBC, CMP, INR & other daily labs Review of notes from a different specialty or different practice: Nephrology, Anesthesiology hepatology, * Ignacio Quene MD - 10/10/2024 12:12 PM EDT Images [...] monitor urine output No 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 Not a candidate for terlipressin per [...] Ignacio Queen MD Renal Fellow Pager # [phone] Chief Complaint No chief complaint on file. [...] concern for hepatorenal syndrome.` Patient came from [facility], paracentesis was performed yesterday on [...] PHOS -- < > 3.5 3.4 3.3 TUCR65R 7.1* -- -- -- -- < > = values in this interval not displayed. Lab Results Component Value Date IRON 81 10/08/2024 TIBC SEE COMMENT 10/08/2024 FERRITIN 706.9 (H) 10/08/2024 No results found for: [id number] , FOLATE Lab Results Component Value Date [...] CRUR No results found for: MICROALBUR , [id number] In addition to the above an extensive [...] 3.3 10/10/2024 Lab Results Component Value Date [id number] 7.1 (L) 10/08/2024 PLAN Continue IV albumin [...] AM Colten Huertas MD, KISHOR LIN, FNDeclanF day spa manager Div. of Nephrology [facility] E-mail: [email or web address] This note was completely edited, [...] to follow pt while pt is at [facility]. * Jodi Ortiz PharmD - 10/10/2024 10:27 AM EDT Clinical Pharmacy Service: Vancomycin Consult Progress Note Patient has been transitioned off of vancomycin therapy per team notes and orders. Pharmacy will sign-off at this time, please do not hesitate to consult again as needs arise. Thank you for involving pharmacy in the care of this patient. Jodi Ortiz PharmD Clinical E Business Consultant, Internal Medicine Preferred contact: [employer] Clinical Mcjasgo-Lt-Tjfi Pager: [phone] October 10, 2024 10:27 AM Laboratory Data [...] 10/07/2024 10:50 PM Giardia Cryptosporidium Antigens Final [id number] 10/07/2024 10:50 PM Ova and Parasite Comprehensive w/ Giardia/Crypto Final [id number] Feces 10/06/2024 1:04 AM #2 Blood culture-Peripheral site 2 Preliminary [id number] Peripheral 10/06/2024 1:04 AM #1 Blood culture-Peripheral site 1 Preliminary [id number] Peripheral Pharmacokinetics Lab Results (Last 7 days) Today 522 Yesterday 10/08 0536 Vanc Rdm 16.4 11.0 16.0 * Gerri Peterson MD - 10/10/2024 10:09 AM EDT [facility] HEPATOLOGY PROGRESS NOTE Name: Julien Gilbert CSN: [id number] Consulted by: Fouzia Rene MD Reason for [...] nucleated cells, <2000 RBCs 10% Polynuclear, 90% [place] nuc. Per OSH reports, ascitic fluid cultures [...] to achieving target HR. -cardiology consult for [facility] on Sunday - Transplant nephrology following for [...] from the original note were not included. [facility] Clinical Pharmacy Service: Vancomycin Monitoring Consult [...] in sodium chloride 0.9 % 250 mL Xyuc9Yvh (Completed) 1,500 mg Once 10/09/2024 10/09/2024 Admin Instructions: Contact pharmacy if there is a question/concern of whether vancomycin should begiven based on serum drug levels. Use Qklh9Eis Adapter - Mix Thoroughly Before Administration Route: Intravenous vancomycin (VANCOCIN) 1,500 mg in sodium chloride 0.9 % 250 mL Jcui5Hxf 1,500 mg Once 10/10/2024 10/11/2024 Admin Instructions: Contact pharmacy if there is a question/concern of whether vancomycin should begiven based on serum drug levels. Use Dfgs8Vgy Adapter - Mix Thoroughly Before Administration Route: [...] in sodium chloride 0.9 % 250 mL Rwsp8Lwm 1,500 mg 166.7 mL/hr 10/08/24 1259 New Bag vancomycin (VANCOCIN) 1,000 mg in sodium chloride 0.9 % 250 mL Woyr8Ivk 1,000 mg 250 mL/hr --Objective Data-- Vitals: [...] 53 53 54 Creatinine 2.85 2.89 3.04 [place] body weight: 86.8 kg (191 lb 5.7 oz) Adjusted ideal body weight: 99.9 kg (220 lb 3.5 oz) Estimated CrCl: ~35-45 mL/min --Cultures-- Microbiology Results Date and Time Order Name Sensitivity Status Organisms Specimen ID Source 10/07/2024 10:50 PM Giardia Cryptosporidium Antigens Final [id number] 10/07/2024 10:50 PM Ova and Parasite Comprehensive w/ Giardia/Crypto Final [id number] Feces 10/06/2024 1:04 AM #2 Blood culture-Peripheral site 2 Preliminary [id number] Peripheral 10/06/2024 1:04 AM #1 Blood culture-Peripheral site 1 Preliminary [id number] Peripheral --Vancomycin Concentrations-- Lab Results (Last 7 [...] for the consult. Jodi Ortiz PharmD Clinical E Business Consultant, Internal Medicine Preferred contact: [employer] Clinical Lrsgqpj-Jx-Cnod Pager: [phone] October 10, 2024 9:13 AM * Eileen Schroeder MD, PhD - 10/10/2024 8:17 AM EDT Department of Internal Medicine Daily Progress Note Chief Complaint / Reason for Follow-Up Julien Gilbert is a 39 y.o. male on hospital day 5. The principal reason for today's follow up visit is Acute kidney injury superimposed on CKD ([facility]). DREW Pt was very conversational today. A&O [...] at 10/08/2024 1:12 PM EDT US Duplex Awz-Twp-Tjjxvgx Comp Final Result IMPRESSION: ABDOMEN 1. Cirrhotic [...] from outside facility. Will engage with them daily([phone]. Ask to speak to a tech) about [...] Order Questions: Select Supplement: Boost-1 kcal/ml supplement ([facility] only) Code Status: Full Code Signed: [...] reviewed the documentation by the medical steam table attendant and agree as documented. Any additions or clarifications are listed below. Daily plan was discussed with patient at bedside and questions addressed. Patient ID: Julien Gilbert is a 39 y.o. male currently admitted for Acute kidney injury superimposed on CKD ([facility]) Supplemental History/ ROS: No acute events overnight [...] Acute kidney injury superimposed on CKD ([facility]) Active Problems: Spontaneous Bacterial Peritonitis ([facility]): Cultures from OSH were reported as growing gram-positive organisms. Today, after secondary review, a rep from OSH lab reports that they do not think the Gram+ organisms were seen. He remains afebrile and vital signs have been stable. - He received 4 days of vancomycin. Will d/c today. - Continue ceftriaxone for full days. [facility] Anemia: Multiple contributors. S/p 1 unit PRBC. Hemoglobin responded appropriately and remained stable. Will continue to monitor. Metabolic encephalopathy: Mostly resolved. Likely related to combination of hepatic, metabolic, andpossibly infectious insults. - Continue home lactulose and rifaximin Decompensated cirrhosis ([facility]): Appreciate hepatology consult. He has started his [...] NADIYA (acute kidney injury) on CKD ([facility]): Appreciate nephrology consult. 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 Considering para today, cardiac workup pre txp Liver transplant workup per GI/ Primary team, considering for [facility], seen by renal transplant team Thank you for allowing us to participate in this patient's care. Discussed with Consult Staff. Ignacio Queen MD Renal Fellow Pager # [phone] Chief Complaint No chief complaint on file. [...] concern for hepatorenal syndrome.` Patient came from [facility], paracentesis was performed yesterday on [...] 9.0 9.3 PHOS -- 3.5 3.5 3.4 [id number] 7.1* -- -- -- Lab Results Component Value Date IRON 81 10/08/2024 TIBC SEE COMMENT 10/08/2024 FERRITIN 706.9 (H) 10/08/2024 No results found for: [id number] , FOLATE Lab Results Component Value Date [...] CRUR No results found for: MICROALBUR , [id number] In addition to the above an extensive [...] (See Comments) Became Manic Cosigned by Colten Huerats MD at 10/09/2024 6:47 PM EDT Associated [...] 3.4 10/09/2024 Lab Results Component Value Date WJUT48R 7.1 (L) 10/08/2024 PLAN Continue IV albumin [...] PM Colten Huertas MD, KISHOR LIN, CATHYF day spa manager Div. of Nephrology [facility] E-mail: [email or web address] This note was completely [...] Peterson MD - 10/09/2024 1:07 PM EDT [facility] HEPATOLOGY PROGRESS NOTE Name: Julien Gilbert CSN: [id number] Consulted by: Fouzia Rene MD Reason for [...] nucleated cells, <2000 RBCs 10% Polynuclear, 90% Mccook nuc. Fluid cultures reportedly grew gram + [...] from the original note were not included. [facility] Clinical Pharmacy Service: Vancomycin Monitoring Consult [...] in sodium chloride 0.9 % 250 mL Aivo2Gdu (Completed) 1,000 mg Once 10/08/2024 10/08/2024 Admin Instructions: Contact pharmacy if there is a question/concern of whether vancomycin should begiven based on serum drug levels. Use Bfte8Dqq Adapter - Mix Thoroughly Before Administration Route: Intravenous vancomycin (VANCOCIN) 1,500 mg in sodium chloride 0.9 % 250 mL Tuvj5Gpb 1,500 mg Once 10/09/2024 10/10/2024 Admin Instructions: Contact pharmacy if there is a question/concern of whether vancomycin should begiven based on serum drug levels. Use Xitq6Gka Adapter - Mix Thoroughly Before Administration Route: [...] in sodium chloride 0.9 % 250 mL Wljh2Nmx 1,000 mg 250 mL/hr 10/06/24 1413 New [...] 10/07/2024 10:50 PM Giardia Cryptosporidium Antigens Final [id number] 10/07/2024 10:50 PM Ova and Parasite Comprehensive w/ Giardia/Crypto Final [id number] Feces 10/06/2024 1:04 AM #2 Blood culture-Peripheral site 2 Preliminary [id number] Peripheral 10/06/2024 1:04 AM #1 Blood culture-Peripheral site 1 Preliminary [id number] Peripheral --Vancomycin Concentrations-- Lab Results (Last 7 [...] for the consult. Jodi Ortiz PharmD Clinical E Business Consultant, Internal Medicine Preferred contact: [employer] Clinical Fdsjwae-Zz-Xpkg Pager: [phone] October 09, 2024 8:29 AM * Eileen Schroeder MD, PhD - 10/09/2024 8:00 AM EDT Department of Internal Medicine Daily Progress Note Chief Complaint / Reason for Follow-Up Julien Gilbert is a 39 y.o. male on hospital day 4. The principal reason for today's follow up visit is Acute kidney injury superimposed on CKD ([facility]). DREW and father at bedside Pt fully [...] at 10/08/2024 1:12 PM EDT US Duplex Uqn-Ont-Zqshvcw Comp Final Result IMPRESSION: ABDOMEN 1. Cirrhotic [...] from outside facility. Will engage with them daily([phone]. Ask to speak to a tech) about [...] Order Questions: Select Supplement: Boost-1 kcal/ml supplement ([facility] only) Code Status: Full Code Signed: [...] reviewed the documentation by the medical steam table attendant and agree as documented. Any additions or clarifications are listed below. Daily plan was discussed with patient at bedside and questions addressed. Patient ID: Julien Gilbert is a 39 y.o. male currently admitted for Acute kidney injury superimposed on CKD ([facility]) Supplemental History/ ROS: No acute events overnight [...] Acute kidney injury superimposed on CKD ([facility]) Active Problems: Anemia: S/p 1 unit PRBC [...] reflux disease) Anemia SBP (spontaneous bacterial peritonitis) ([facility]) Neck pain with history of cervical spinal [...] another specialty or practice, other licensed professional (PT/OT/DIANETICIST/RT), or a non-medical community professional: Nephrology, Hepatology Labs reviewed (1 pt each): CBC, CMP, INR & other daily labs Review of notes from a different specialty or different practice: Nephrology, Anesthesiology hepatology, * Gerri Peterson MD - 10/08/2024 1:40 PM EDT [facility] HEPATOLOGY PROGRESS NOTE Name: Julien Gilbert CSN: [id number] Consulted by: Fouzia Rene MD Reason for [...] nucleated cells, <2000 RBCs 10% Polynuclear, 90% Mccook nuc. Fluid cultures reportedly grew gram + [...] evaluation and management for this patient. Lino Stoo MD GI and Hepatology Staff * Yung [...] disease (ESRD) patient in a hospital based, [facility]-hospital based, or home setting. -At [...] I have discussed this plan with the dental treatment coordinator and the liver transplant team. Cosigned [...] from the original note were not included. [facility] Clinical Pharmacy Service: Vancomycin Monitoring Consult [...] in sodium chloride 0.9 % 250 mL Lids8Mxz 1,000 mg Once 10/08/2024 10/09/2024 Admin Instructions: Contact pharmacy if there is a question/concern of whether vancomycin should begiven based on serum drug levels. Use Otxu3Ahk Adapter - Mix Thoroughly Before Administration Route: [...] 10/07/2024 10:50 PM Giardia Cryptosporidium Antigens Final [id number] 10/07/2024 10:50 PM Ova and Parasite Comprehensive w/ Giardia/Crypto In process [id number] Feces 10/06/2024 1:04 AM #2 Blood culture-Peripheral site 2 Preliminary [id number] Peripheral 10/06/2024 1:04 AM #1 Blood culture-Peripheral site 1 Preliminary [id number] Peripheral --Vancomycin Concentrations-- Lab Results (Last 7 [...] for the consult. Jodi Ortiz PharmD Clinical E Business Consultant, Internal Medicine Preferred contact: [employer] Clinical Gqyrahl-Qh-Qyql Pager: [phone] October 08, 2024 9:13 AM * Eileen [...] FREET4 0.74 09/03/2024 Diagnostic Studies US Duplex Qew-Nfp-Tkkcikk Comp Final Result IMPRESSION: ABDOMEN 1. Cirrhotic [...] Order Questions: Select Supplement: Boost-1 kcal/ml supplement ([facility] only) Code Status: Full Code Signed: [...] reviewed the documentation by the medical steam table attendant and agree as documented. Any additions or [...] NADIYA (acute kidney injury) on CKD ([facility]): Appreciate nephrology consult. Likely has hepatorenal syndrome. 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 Discussed with Consult Staff. Ignacio Queen MD Renal Fellow Pager # [phone] Chief Complaint No chief complaint on file. [...] concern for hepatorenal syndrome.` Patient came from [facility], paracentesis was performed yesterday on [...] TIBC , FERRITIN No results found for: SPFUWVYS50 , FOLATE Lab Results Component Value Date [...] <15 No results found for: MICROALBUR , [id number] In addition to the above an extensive [...] 4.0 10/08/2024 Lab Results Component Value Date WZVF44A 7.1 (L) 10/08/2024 PLAN Continue IV albumin [...] AM Colten Huertas MD, DELIA, KISHOR, FNKF day spa manager Div. of Nephrology [facility] E-mail: [email or web address] This note was completely edited, [...] from the original note were not included. [facility] Clinical Pharmacy Service: Vancomycin Monitoring Consult [...] AM #2 Blood culture-Peripheral site 2 Preliminary [id number] Peripheral 10/06/2024 1:04 AM #1 Blood culture-Peripheral site 1 Preliminary [id number] Peripheral --Vancomycin Concentrations-- Lab Results (Last 7 [...] for the consult. Jodi Ortiz PharmD Clinical E Business Consultant, Internal Medicine Preferred contact: [employer] Clinical Mqttfbk-Eq-Akke Pager: [phone] October 07, 2024 5:01 PM * Yamile [...] Peterson MD - 10/07/2024 11:33 AM EDT [facility] HEPATOLOGY PROGRESS NOTE Name: Julien Gilbert CSN: [id number] Consulted by: Fouzia Rene MD Reason for [...] 07/26/2024 Renal cell carcinoma (CMS-HCC) Thrombocytopenia ([facility]) Thyroid disease No past surgical history on [...] nucleated cells, <2000 RBCs 10% Polynuclear, 90% Mccook nuc. Fluid cultures reportedly grewgram + rods. [...] selection meeting and clearance by social worker aide. 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 Discussed with Consult Staff. Ignacio Queen MD Renal Fellow Pager # [phone] Chief Complaint No chief complaint on file. [...] concern for hepatorenal syndrome.` Patient came from [facility], paracentesis was performed yesterday on [...] TIBC , FERRITIN No results found for: GFXDXTFM08 , FOLATE Lab Results Component Value Date [...] <15 No results found for: MICROALBUR , [id number] In addition to the above an extensive [...] PHOS 4.2 10/07/2024 No results found for: AGBD93C PLAN Continue IV albumin Monitor renal panel [...] AM Colten Huertas MD, KISHOR LIN, PETE day spa manager Div. of Nephrology [facility] E-mail: [email or web address] * Carmen Bernal, OT - 10/07/2024 11:09 AM EDT Occupational Therapy Initial Assessment and Discharge Name: Julien Gilbert : 1985 Attending Physician: Fouzia Rene MD Admission Diagnosis: AMS Date: 10/07/2024 [facility] Pertinent hospital course: Yes Hospital Course [...] at 10/06/2024 2:33 AM EDT US Duplex Nqg-Cbl-Bjqzrih Comp (Results Pending) US Abdomen Complete (Results [...] Order Questions: Select Supplement: Boost-1 kcal/ml supplement ([facility] only) Code Status: Full Code Signed: [...] reviewed the documentation by the medical steam table attendant and agree as documented. Any additions or [...] lactulose and rifaximin Spontaneous Bacterial Peritonitis ([facility]): Cultures from OSH are growing gram- positive organisms.He is on vancomycin and ceftriaxone for now. Will follow-up on speciation and sensitivities. For now, he is afebrile and his white counts have trended down and mental status is improving. Decompensated cirrhosis ([facility]): Appreciate hepatology consult. He has started his transplant evaluation as an outpatient. We will follow-up with hepatology to discuss any inpatient testing that may need to be needed. - MELD labs daily - Continue home regimen with ursodiol, rifaximin and lactulose NADIYA (acute kidney injury) ([facility]): Appreciate nephrology consult. Likely has hepatorenal syndrome. [...] disease) stage 4, GFR 15-29 ml/min ([facility]) Metabolic acidosis with normal anion gap and [...] another specialty or practice, other licensed professional (PT/OT/DIANETICIST/RT), or a non-medical community professional: Nephrology, Hepatology Labs reviewed (1 pt each): CMP, CBC Test results reviewed (1 pt each): CXR, Head CT Review of notes from a different specialty or different practice: Nephrology, hepatology Use of parenteral controlled substances * Kiet Gardiner, PharmD - 10/06/2024 1:07 PM EDT Images from the original note were not included. [facility] Clinical Pharmacy Service: Vancomycin Monitoring Consult [...] AM #2 Blood culture-Peripheral site 2 Preliminary [id number] Peripheral 10/06/2024 1:04 AM #1 Blood culture-Peripheral site 1 Preliminary [id number] Peripheral --Vancomycin Concentrations-- Lab Results (Last 7 [...] US Retroperitoneal complete (Results Pending) US Duplex Rfv-Wui-Tbzmwcv Comp (Results Pending) CT Head WO contrast [...] PM EDT Hospital Medicine Attending Supervision Note [facility] // [facility] Julien Gilbert was seen 10/06/24 on [...] Lerner MD - 10/05/2024 2:42 PM EDT [facility] - [facility] Department of Medicine TRANSFER CALL NOTE Location [facility] ED History of Present Illness Julien Gilbert [...] nearest ED, with plan to transfer to [facility] if needing admission. In the ED, [...] Studies: Na 129 K 4.2 Cl 101 Csmvgx75 BUN 62 (up from baseline) Cr 3.6 [...] Quan MD - 10/14/2024 1:10 PM EDT [facility] PRE-SEDATION ASSESSMENT, HISTORY & PHYSICAL [...] Neuro: AOx3 AUC For Cath Indication(s) for Typesetter Apprentice Visit: Visit Indicators: Suspected CAD 2. Chest Pain Symptom Assessment: Asymptomatic 3. Heart Failure: Yes Class II 4. CHSA Clinical Frailty Scale: Mildly Frail Sedation Plan: Moderate Sedation with Local Anesthesia Antibiotic prophylaxis is not indicated. Mani Quan Interventional Resistance Welder Pager: [phone] [1] Patient Active Problem List Diagnosis Decompensated cirrhosis ([facility]) Acute kidney injury superimposed on CKD ([facility]) Alcohol use disorder Metabolic encephalopathy Hypertension Other hyperlipidemia Thrombocytopenia ([facility]) Renal mass, left Abdominal pain Hypokalemia CKD (chronic kidney disease) stage 4, GFR 15-29 ml/min ([facility]) Metabolic acidosis with normal anion gap and bicarbonate losses GERD (gastroesophageal reflux disease) Hypothyroidism Itching Anemia BRBPR (bright red blood per rectum) SBP (spontaneous bacterial peritonitis) ([facility]) C Diff Diarrhea C. difficile diarrhea Neck pain with history of cervical spinal surgery Cosigned by Irving Matta MD at 10/16/2024 10:54 AM EDT Associated attestation - Irving Matta MD - 10/16/2024 10:54 AM EDT Agree * Gerri Peterson MD - 10/10/2024 10:05 AM EDT [facility] PRE-SEDATION ASSESSMENT, HISTORY & PHYSICAL [...] Active Problem List Diagnosis Decompensated cirrhosis ([facility]) Acute kidney injury superimposed on CKD ([facility]) Alcohol use disorder Metabolic encephalopathy Hypertension Other hyperlipidemia Thrombocytopenia ([facility]) Renal mass, left Abdominal pain Hypokalemia CKD (chronic kidney disease) stage 4, GFR 15-29 ml/min ([facility]) Metabolic acidosis with normal anion gap and bicarbonate losses GERD (gastroesophageal reflux disease) Hypothyroidism Itching Anemia BRBPR (bright red blood per rectum) SBP (spontaneous bacterial peritonitis) ([facility]) C Diff Diarrhea C. difficile diarrhea Neck [...] Strain: Low Risk (07/09/2024) Received from [facility] Overall Financial Resource Strain (CARDIA) Difficulty of [...] No Physical Activity: Unknown (07/14/2024) Received from [facility] Exercise Vital Sign Days of Exercise per Week: Patient unable to answer Minutes of Exercise per Session: Not on file Stress: Patient Unable To Answer (07/14/2024) Received from [facility] [employer] [place] of Occupational Health - Occupational Stress Questionnaire Feeling of Stress : Patient unable to answer Social Connections: Patient Unable To Answer (07/14/2024) Received from [facility] Social Connection and Isolation Panel [NHANES] Frequency of Communication with Friends and Family: Patient unable to answer Frequency of Social Gatherings with Friends and Family: Patient unable to answer Attends Buddhism Services: Patient unable to answer Active Member [...] values in this interval not displayed. Imaging: @[id number]@ I have personally reviewed the imaging and have noted the following: Large recanalized umbilical vein Perihilar varices Replaced right hepatic artery Splenomegaly Spontaneous splenorenal shunt Large volume ascites, No portal vein thrombosis Assessment/Plan: A 39 y.o. male with ETOH decompensated by ascites, hepatic encephalopathy,bleeding esophageal Varices. Use and allocation of SCD, SPECIAL SHOPPER, DCD and LDLT allografts discussed in detail. [...] from surgery (5%). I also explained the ad terminal makeup operator risks of transplantation and immunosuppression including viral infection and cancer both solid organand lymphoma. Kemar Sahni MD, Fellow, Multiorgan Abdominal Transplant Surgery. [facility]. 10/09/2024 3:16 PM [1] Allergies [...] Ortiz MD - 10/06/2024 12:00 AM EDT [facility] Internal Medicine - History and [...] taken to Radiology overnight for imaging upload. [facility] performed a bedside paracentesis and sent studies for SBP analysis. [facility] have resulted. Review of Systems 14 pt ROS conducted and negative aside from that mentioned in above HPI Past Medical and Social History Lives in [place], [place] at bedside Notes that the patient [...] OSH Repeat labs pending on admission to [facility] Assessment & Plan Julien Gilbert is [...] AM EDT Hospital Medicine Attending Supervision Note [facility] // [facility] Julien Gilbert was seen 10/06/24 on [...] confusion and lethargy. HE was seen at [facility] ED were CT head unremarkable and RUQ with gallstones, abdominal ascites diagnostic para done and started on empiric CTX. Labs remarkable at OSH for K 4.2 Cl 101 Tkhofz85 BUN 62 (up from baseline) Cr 3.6 [...] another specialty or practice, other licensed professional (PT/OT/DIANETICIST/RT), or a non-medical community professional: ed team [...] ANGIE BLANCHARD MD Attending Physician Division of [facility] Medicine Department of Internal Medicine Pager ID: [phone] 6:04 AM, 10/06/2024 documented in this encounter [...] CNP Vascular & Interventional Radiology 10/10/2024,1:55 PM [facility]: [phone] * Lino Soto MD - 10/10/2024 12:06 PM EDT EGD Brief Op Note Julien Gilbert 10/05/2024 - 10/10/2024 Pre-op Diagnosis: Alcoholic cirrhosis of liver with ascites (CMS-HCC) [K70.31] Post-op Diagnosis: Portal gastropathy, Medium size, non-bleeding esophageal varices Procedure(s): EGD Surgeon(s): Lino Soto MD Anesthesia: MAC (Monitor Anesthesia Care) Staff: Fellow: Gerri Peterson MD Endoscopy Nurse: Kandice Castaneda RN Research Associate Quality Control Qc: Diana Kemp Estimated Blood Loss: Minimal Specimens: Drains: There were no complications unless listed below. LINO SOTO MD Date: 10/10/2024 Time: 12:18 PM * Lino Soto MD - 10/10/2024 11:48 AM EDT [id number] Procedure Date: 10/10/2024 11:48 AM Patient Name: Julien Gilbert Date of : 1985 Admit Type: Inpatient Age: 39 Gender: Male Note Status: Finalized Attending MD: Lino Soto MD, [id number] Procedure: Upper GI endoscopy Indications: Gastroesopahgeal variceal [...] verified by the physician, the nurse, the maintenance journeyman and the patient care technician in the pre-procedure area in [...] to hypotension Procedure Code(s): --- Professional --- 09958, GC, Esophagogastroduodenoscopy, flexible, transoral; diagnostic, including collection of specimen(s) by brushing or washing, when performed (separate procedure) Diagnosis Code(s): --- Professional --- I85.00, Esophageal varices without bleeding K76.6, Portal hypertension K31.89, Other diseases of stomach and duodenum CPT copyright 2022 [employer]. All rights reserved. The codes documented in this report are preliminary and upon steam turbine operator review may be revised to meet [...] In: 12:10:16 PM Scope Out: 12:17:[address] [place] [address], [id number] * Gill Le RN - 10/09/2024 4:00 [...] time. 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 Describes significant anxiety that occasionally limits his ability to drive, and stated he has to puller out occasionally to collect himself, thought denied specific [...] need for sleep. Has not been on [facility] since stopping the [...] his father resides in [facility]. Patient earned a graduate degree and never [...] other abnormalities Cognition/Memory: short term and intermediate memory intact. Attention and concentration: is not [...] from the original note were not included. [facility] General Cardiology Consult Note Referring [...] at baseline or with provocation, shows no dgxxu-zf-ycpx atrial level shunt. - Pulmonary arteries: Systolic [...] 10/13/24, please keep NPO on 10/12/24 at [place] Risks and benefits of new therapies added and new invasive and non-invasive procedures/diagnostic testing planned discussed with and understood by the patient/family who agree with the above plan. Plan discussed with the attending physician Dr. Blanco. Recommendations are preliminary until this note is co- signed by the attending. Follow up appointments with Cardiology can be scheduled by calling [phone]. Thank you for the opportunity to participate in this patient's care. Please call orpage with any questions. Leonor Garcia MD Resistance Welder I have personally seen, examined, reviewed all [...] 0659 10/11/24 0700 - 10/12/24 0659 Shift 3962-0552 6211-4755 24 Hour Total 3305-8941 6566-0937 2064-5215 24 Hour Total INTAKE P.O. 6190 284 3392 P.O. 7640 321 5635 Boost (mL) - [facility] only 240 240 I.V.(mL/kg) 450(3.8) Volume [...] Comments) Became Manic * Bakari Jaime Maryuri, MANAGER FLIGHT - 10/10/2024 10:07 AM EDT Interventional Radiology [...] Please call with any questions. BAKARI WAHL, MANAGER FLIGHT Vascular & Interventional Radiology 10/10/2024,1:54 PM [facility]: [phone]) [1] Social History Tobacco Use Smoking Status [...] EDTAssociated Order(s): IP CONSULT TO INFECTIOUS DISEASES [facility] DEPARTMENT OF INFECTIOUS DISEASE INITIAL NOTE Referring Physician: Fouzia Rene MD Consult Attending: Daria Garcia Patient: Julien Gilbert CSN: [id number] Reason for Consult: CC: Abx management History [...] HE. He was born and raised in [place] [facility] . No travel to the [facility]. 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 [...] Strain: Low Risk (07/09/2024) Received from [facility] Overall Financial Resource Strain (CARDIA) Difficulty of [...] No Physical Activity: Unknown (07/14/2024) Received from [facility] Exercise Vital Sign Days of Exercise per Week: Patient unable to answer Minutes of Exercise per Session: Not on file Stress: Patient Unable To Answer (07/14/2024) Received from [facility] [employer] [place] of Occupational Health - Occupational Stress Questionnaire Feeling of Stress : Patient unable to answer Social Connections: Patient Unable To Answer (07/14/2024) Received from [facility] Social Connection and Isolation Panel [NHANES] Frequency of Communication with Friends and Family: Patient unable to answer Frequency of Social Gatherings with Friends and Family: Patient unable to answer Attends Buddhism Services: Patient unable to answer Active Member [...] tablet, Refills: 0 Comments: [facility] [place] [address] sodium bicarbonate 650 MG tablet Take 2 [...] [R47.01] 10/06/2024 SBP (spontaneous bacterial peritonitis) ([facility]) [K65.2] 09/08/2024 Metabolic acidosis with normal anion gap and bicarbonate losses [E87.20] 09/03/2024 CKD (chronic kidney disease) stage 4, GFR 15-29 ml/min ([facility]) [N18.4] 09/03/2024 GERD (gastroesophageal reflux disease) [K21.9] 09/03/2024 Renal mass, left [N28.89] 08/18/2024 Thrombocytopenia ([facility]) [D69.6] Decompensated cirrhosis ([facility]) [K72.90, K74.60] 07/25/2024 NADIYA (acute kidney injury) ([facility]) [N17.9] 07/25/2024 Resolved Hospital Problems No resolved [...] Signed: Daria Garcia MD 10/08/2024, 9:46 AM [phone] [1] Allergies Allergen Reactions Adhesive Itching and [...] dual OLT and OKT Chief complaint: Julien Gilbret is a 39 y.o. year old male [...] Strain: Low Risk (07/09/2024) Received from [facility] Overall Financial Resource Strain (CARDIA) Difficulty of [...] No Physical Activity: Unknown (07/14/2024) Received from [facility] Exercise Vital Sign Days of Exercise per Week: Patient unable to answer Minutes of Exercise per Session: Not on file Stress: Patient Unable To Answer (07/14/2024) Received from [facility] Stateless [place] of Occupational Health - Occupational Stress Questionnaire Feeling of Stress : Patient unable to answer Social Connections: Patient Unable To Answer (07/14/2024) Received from [facility] Social Connection and Isolation Panel [NHANES] Frequency of Communication with Friends and Family: Patient unable to answer Frequency of Social Gatherings with Friends and Family: Patient unable to answer Attends Buddhism Services: Patient unable to answer Active Member [...] is no recent study available for direct [id number] comparison. Left Ventricle The left ventricle is [...] pressures < 35 mmHgon resting echo from [facility] 07/15/24. No ischemic workup noted. ECG [...] surgery with risk (OLT/OKT) Los Broussard MD, [facility] Department of Anesthesiology [1] Allergies Allergen Reactions Adhesive Itching and Rash Tegaderm adhesive on Ivs, pt states its tolerable Duloxetine Other (See Comments) Became Manic [2] Patient Active Problem List Diagnosis Decompensated cirrhosis ([facility]) NADIYA (acute kidney injury) ([facility]) Alcohol use disorder Metabolic encephalopathy Hypertension Other hyperlipidemia Thrombocytopenia ([facility]) Renal mass, left Abdominal pain Hypokalemia CKD (chronic kidney disease) stage 4, GFR 15-29 ml/min ([facility]) Metabolic acidosis with normal anion gap and bicarbonate losses GERD (gastroesophageal reflux disease) Hypothyroidism Itching Anemia BRBPR (bright red blood per rectum) SBP (spontaneous bacterial peritonitis) ([facility]) C Diff Diarrhea C. difficile [...] PCP: Enedina Mcguire NP Home Pharmacy: [facility] [address] [place] [address], [address] [place] [address] [facility] Aleisha [facility]ter[facility] [address] Issues related to obtaining medications: Payor Information Medical Insurance Coverage: Payor: [facility] / Plan: [facility] / Product Type: *No Producttype* / Secondary Payor: Functional Assessment Functional Assessment Assessment Information Obtained From:: Patient Current Mental Status: Awake, Oriented to Person, Oriented to Place, Oriented to Time, Oriented to Situation Mental Health History: Yes Behavioral Health Agency Involvement: Yes Behavioral Health Agency Name: Other (Comment) (states he used [facility] for mental health help) Do [...] No Status & Connection to [facility] Services [place] Status & Connection to VA Services Are [...] confusion and lethargy. HE was seen at [facility] ED were CT head unremarkable and RUQ with gallstones, abdominal ascites diagnostic para done and started on empiric CTX.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 9:26 AM EDT Testing performed by [facility] Transfusion Service us Eleazar Nguyễn MD BLOOD BANK TEST ORDERAB LES Final Result [facility] [address] [place] [address], [facility] * ABO/Rh (10/14/2024 8:21 AM EDT) ABO Grouping O 10/14/2024 8:55 AM EDT [facility] Rh Type Positive 10/14/2024 8:55 AM EDT [facility] Blood 10/14/2024 8:21 AM EDT 10/14/2024 8:33 AM EDT us Eleazar Nguyễn MD BLOOD BANK TEST ORDERAB LES Final Result Performing Organization Address [facility] Co de Phone Number [facility] [address] * (ABNORMAL) Protime-INR (10/14/2024 2:53 AM EDT) Protime 23.8(H) 12.1 - 15.1 seconds 10/14/2024 4:34 AM EDT [facility] INR 2.1(H) 0.9 - 1.1 10/14/2024 4:34 AM EDT [facility] Comment: RECOMMENDED THERAPEUTIC RANGES USING INR : Stable oral anticoagulant therapy: 2.0 - 3.0 Mechanical prosthetic heart valve: 2.5 - 3.5 Recurrent acute myocardial infarction: 2.5 - 3.5 Plasma 10/14/2024 2:53 AM EDT 10/14/2024 4:16 AM EDT us Eileen Schroeder MD, PhD LAB BLOOD ORDERABLES Final Result Performing Organization Address [facility] Co de Phone Number [facility] [address] [facility]. [address] * (ABNORMAL) Hepatic Function Panel (10/14/2024 2:53 AM EDT) Total Bilirubin 7.2(H) 0.0 - 1.5 mg/dL 10/14/2024 4:45 AM EDT [facility] Bilirubin, Direct 3.86(H) 0.00 - 0.40 mg/dL 10/14/2024 4:45 AM EDT [facility] AST 41(H) 13 - 39 U/L 10/14/2024 4:45 AM EDT [facility] ALT 22 7 - 52 U/L 10/14/2024 4:45 AM EDT [facility] Alkaline Phosphatase 119 36 - 125 U/L 10/14/2024 4:45 AM EDT [facility] Total Protein 4.6(L) 6.4 - 8.9 g/dL 10/14/2024 4:45 AM EDT [facility] Albumin 3.3(L) 3.5 - 5.7 g/dL 10/14/2024 4:45 AM EDT [facility] Bilirubin, Indirect 3.34(H) 0.00 - 1.10 mg/dL 10/14/2024 4:45 AM EDT [facility] Plasma 10/14/2024 2:53 AM EDT 10/14/2024 4:16 AM EDT Eileen Schroeder MD, PhD LAB BLOOD ORDERABLES Final Result [facility] [address] * Magnesium (10/14/2024 2:53 AM EDT) Magnesium 1.9 1.5 - 2.5 mg/dL 10/14/2024 4:45 AM EDT [facility] Plasma 10/14/2024 2:53 AM EDT 10/14/2024 4:16 AM EDT Eileen Schroeder MD, PhD LAB BLOOD ORDERABLES Final Result [facility] [address] * (ABNORMAL) Renal Function Panel w/EGFR (10/14/2024 2:53 AM EDT) Sodium 136 133 - 146 mmol/L 10/14/2024 4:45 AM EDT [facility] Potassium 3.5 3.5 - 5.3 mmol/L 10/14/2024 4:45 AM EDT [facility] Chloride 107 98 - 110 mmol/L 10/14/2024 4:45 AM EDT [facility] CO2 16(L) 21 - 33 mmol/L 10/14/2024 4:45 AM EDT [facility] Anion Gap 13 3 - 16 mmol/L 10/14/2024 4:45 AM EDT [facility] BUN 55(H) 7 - 25 mg/dL 10/14/2024 4:45 AM EDT [facility] Creatinine 3.01(H) 0.60 - 1.30 mg/dL 10/14/2024 4:45 AM EDT [facility] Glucose 95 70 - 100 mg/dL 10/14/2024 4:45 AM EDT [facility] Calcium 8.5(L) 8.6 - 10.3 mg/dL 10/14/2024 4:45 AM EDT [facility] Phosphorus 4.4 2.1 - 4.7 mg/dL 10/14/2024 4:45 AM EDT [facility] Albumin 3.3(L) 3.5 - 5.7 g/dL 10/14/2024 4:45 AM EDT [facility] Osmolality, Calculated 297 278 - 305 mOsm/kg 10/14/2024 4:45 AM EDT [facility] EGFR 26 10/14/2024 4:[facility]:As of 2021, the estimated GFR [...] MD, PhD LAB BLOOD ORDERABLES Final Result [facility] [address] [place] [address], [facility] * (ABNORMAL) CBC (10/14/2024 2:53 AM EDT) WBC 5.5 3.8 - 10.8 10E3/uL 10/14/2024 5:00 AM EDT [facility] RBC 2.09(L) 4.20 - 5.80 10E6/uL 10/14/2024 5:00 AM EDT [facility] Hemoglobin 7.6(L) 13.2 - 17.1 g/dL 10/14/2024 5:00 AM EDT [facility] Hematocrit 21.3(L) 38.5 - 50.0 % 10/14/2024 5:00 AM EDT [facility] MCV 101.7(H) 80.0 - 100.0 fL 10/14/2024 5:00 AM EDT [facility] MCH 36.3(H) 27.0 - 33.0 pg 10/14/2024 5:00 AM EDT [facility] MCHC 35.7 32.0 - 36.0 g/dL 10/14/2024 5:00 AM EDT [facility] RDW 17.6(H) 11.0 - 15.0 % 10/14/2024 5:00 AM EDT [facility] Platelets 35(L) 140 - 400 10E3/uL 10/14/2024 5:00 AM EDT [facility] Comment: Specimen checked for clots. None detected. Slide Reviewed for PLT Clumps. None Seen. MPV 8.5 7.5 - 11.5 fL 10/14/2024 5:00 AM EDT [facility] Whole Blood 10/14/2024 2:53 AM EDT 10/14/2024 4:17 AM EDT us Eileen Schroeder MD, PhD LAB BLOOD ORDERABLES Final Result [facility] [address] [place] [address], [facility] * Cardiac Cath Documents Scan [...] mL of GADOBUTROL 1 MMOL/ML INTRAVENOUS SYRINGE ([facility]) administered intravenously COMPARISON: CT 09/03/2024. Ultrasound [...] mL of GADOBUTROL 1 MMOL/ML INTRAVENOUS SYRINGE ([facility])administered intravenously COMPARISON: CT 09/03/2024. Ultrasound 10/07/2024. [...] 0.9 - 1.1 10/13/2024 6:12 AM EDT [facility] Comment: RECOMMENDED THERAPEUTIC RANGES USING INR : Stable oral anticoagulant therapy: 2.0 - 3.0 Mechanical prosthetic heart valve: 2.5 - 3.5 Recurrent acute myocardial infarction: 2.5 - 3.5 Plasma 10/13/2024 5:35 AM EDT 10/13/2024 5:52 AM EDT us Eileen Schroeder MD, PhD LAB BLOOD ORDERABLES Final Result [facility] [address] * (ABNORMAL) Hepatic Function Panel (10/13/2024 5:35 AM EDT) Total Bilirubin 6.5(H) 0.0 - 1.5 mg/dL 10/13/2024 6:30 AM EDT [facility] Bilirubin, Direct 3.53(H) 0.00 - 0.40 mg/dL 10/13/2024 6:30 AM EDT [facility] AST 42(H) 13 - 39 U/L 10/13/2024 6:30 AM EDT [facility] ALT 19 7 - 52 U/L 10/13/2024 6:30 AM EDT [facility] Alkaline Phosphatase 108 36 - 125 U/L 10/13/2024 6:30 AM EDT [facility] Total Protein 4.4(L) 6.4 - 8.9 g/dL 10/13/2024 6:30 AM EDT [facility] Albumin 3.1(L) 3.5 - 5.7 g/dL 10/13/2024 6:30 AM EDT [facility] Bilirubin, Indirect 2.97(H) 0.00 - 1.10 mg/dL 10/13/2024 6:30 AM EDT [facility] Plasma 10/13/2024 5:35 AM EDT 10/13/2024 5:52 AM EDT Eileen Schroeder MD, PhD LAB BLOOD ORDERABLES Final Result [facility] [address] [facility]. [address] * Magnesium (10/13/2024 5:35 AM EDT) Magnesium 2.0 1.5 - 2.5 mg/dL 10/13/2024 6:30 AM EDT [facility] Plasma 10/13/2024 5:35 AM EDT 10/13/2024 5:52 AM EDT Eileen Schroeder MD, PhD LAB BLOOD ORDERABLES Final Result [facility] [address] [place] [id number], [facility] * (ABNORMAL) Renal Function Panel w/EGFR (10/13/2024 5:35 AM EDT) Sodium 134 133 - 146 mmol/L 10/13/2024 6:30 AM EDT [facility] Potassium 3.7 3.5 - 5.3 mmol/L 10/13/2024 6:30 AM EDT [facility] Chloride 109 98 - 110 mmol/L 10/13/2024 6:30 AM EDT [facility] CO2 14(L) 21 - 33 mmol/L 10/13/2024 6:30 AM EDT [facility] Anion Gap 11 3 - 16 mmol/L 10/13/2024 6:30 AM EDT [facility] BUN 54(H) 7 - 25 mg/dL 10/13/2024 6:30 AM EDT [facility] Creatinine 2.99(H) 0.60 - 1.30 mg/dL 10/13/2024 6:30 AM EDT [facility] Glucose 116(H) 70 - 100 mg/dL 10/13/2024 6:30 AM EDT [facility] Calcium 8.3(L) 8.6 - 10.3 mg/dL 10/13/2024 6:30 AM EDT [facility] Phosphorus 4.5 2.1 - 4.7 mg/dL 10/13/2024 6:30 AM EDT [facility] Albumin 3.1(L) 3.5 - 5.7 g/dL 10/13/2024 6:30 AM EDT [facility] Osmolality, Calculated 294 278 - 305 mOsm/kg 10/13/2024 6:30 AM EDT [facility] EGFR 26 10/13/2024 6:30 AM EDT [facility] Comment:As of [...] MD, PhD LAB BLOOD ORDERABLES Final Result [facility] [address] [place] [address], [facility] * (ABNORMAL) CBC (10/13/2024 5:35 AM EDT) WBC 4.7 3.8 - 10.8 10E3/uL 10/13/2024 6:22 AM EDT [facility] RBC 2.06(L) 4.20 - 5.80 10E6/uL 10/13/2024 6:22 AM EDT [facility] Hemoglobin 7.4(L) 13.2 - 17.1 g/dL 10/13/2024 6:22 AM EDT [facility] Hematocrit 21.7(L) 38.5 - 50.0 % 10/13/2024 6:22 AM EDT [facility] MCV 105.4(H) 80.0 - 100.0 fL 10/13/2024 6:22 AM EDT [facility] MCH 35.9(H) 27.0 - 33.0 pg 10/13/2024 6:22 AM EDT [facility] MCHC 34.0 32.0 - 36.0 g/dL 10/13/2024 6:22 AM EDT [facility] RDW 18.5(H) 11.0 - 15.0 % 10/13/2024 6:22 AM EDT [facility] Platelets 35(L) 140 - 400 10E3/uL 10/13/2024 6:22 AM EDT [facility] Comment: CNV Specimen checked for clots. None detected. MPV 8.4 7.5 - 11.5 fL 10/13/2024 6:22 AM EDT [facility] Whole Blood 10/13/2024 5:35 AM EDT 10/13/2024 5:53 AM EDT us Eileen Schroeder MD, PhD LAB BLOOD ORDERABLES Final Result Performing Organization Address City/[facility] Co de Phone Number [facility] [address] [facility]. [address] * (ABNORMAL) Ammonia (10/13/2024 5:35 AM EDT) Ammonia 203(HH) 27 - 90 ug/dL 10/13/2024 7:16 AM EDT [facility] Comment: HEMOLYSIS EVIDENT. RESULTS MAY BE INFLUENCED. Critical Result [id number] Called to and read back by: KEY MELO RN at: 10/13/2024 07:15:55 by:NISREEN Plasma 10/13/2024 5:35 AM EDT 10/13/2024 6:19 AM EDT us Ellis Mays DO LAB BLOOD ORDERABLES Final Resul t Performing Organization Address [facility] Co de Phone Number [facility] [address] [facility]. [address] * CARISA Rhythm Strip - Scan (10/12/2024 10:30 PM EDT) us Scanning Uchhim SCAN DOCS - NO RESULTS Final Res ult * (ABNORMAL) Protime-INR (10/12/2024 5:44 AM EDT) Protime 25.7(H) 12.1 - 15.1 seconds 10/12/2024 6:12 AM EDT [facility] INR 2.3(H) 0.9 - 1.1 10/12/2024 6:12 AM EDT [facility] Comment: RECOMMENDED THERAPEUTIC RANGES USING INR : Stable oral anticoagulant therapy: 2.0 - 3.0 Mechanical prosthetic heart valve: 2.5 - 3.5 Recurrent acute myocardial infarction: 2.5 - 3.5 Plasma 10/12/2024 5:44 AM EDT 10/12/2024 5:58 AM EDT Eileen Schroeder MD, PhD LAB BLOOD ORDERABLES Final Result Performing Organization Address [facility] Co de Phone Number [facility] [address] * (ABNORMAL) Hepatic Function Panel (10/12/2024 5:44 AM EDT) Total Bilirubin 6.5(H) 0.0 - 1.5 mg/dL 10/12/2024 6:29 AM EDT [facility] Bilirubin, Direct 3.64(H) 0.00 - 0.40 mg/dL 10/12/2024 6:29 AM EDT [facility] AST 40(H) 13 - 39 U/L 10/12/2024 6:29 AM EDT [facility] ALT 19 7 - 52 U/L 10/12/2024 6:29 AM EDT [facility] Alkaline Phosphatase 99 36 - 125 U/L 10/12/2024 6:29 AM EDT [facility] Total Protein 4.2(L) 6.4 - 8.9 g/dL 10/12/2024 6:29 AM EDT [facility] Albumin 3.1(L) 3.5 - 5.7 g/dL 10/12/2024 6:29 AM EDT [facility] Bilirubin, Indirect 2.86(H) 0.00 - 1.10 mg/dL 10/12/2024 6:29 AM EDT [facility] Plasma 10/12/2024 5:44 AM EDT 10/12/2024 5:58 AM EDT Eileen Schroeder MD, PhD LAB BLOOD ORDERABLES Final Result Performing Organization Address City/[facility]/ZIP Co de Phone Number [facility] [address] [facility]. [address] * Magnesium (10/12/2024 5:44 AM EDT) Magnesium 1.9 1.5 - 2.5 mg/dL 10/12/2024 6:29 AM EDT [facility] Plasma 10/12/2024 5:44 AM EDT 10/12/2024 5:58 AM EDT us Eileen Schroeder MD, PhD LAB BLOOD ORDERABLES Final Result [facility] [address] [facility]. [address] * (ABNORMAL) Renal Function Panel w/EGFR (10/12/2024 5:44 AM EDT) Sodium 135 133 - 146 mmol/L 10/12/2024 6:29 AM EDT [facility] Potassium 3.7 3.5 - 5.3 mmol/L 10/12/2024 6:29 AM EDT [facility] Chloride 109 98 - 110 mmol/L 10/12/2024 6:29 AM EDT [facility] CO2 17(L) 21 - 33 mmol/L 10/12/2024 6:29 AM EDT [facility] Anion Gap 9 3 - 16 mmol/L 10/12/2024 6:29 AM EDT [facility] BUN 52(H) 7 - 25 mg/dL 10/12/2024 6:29 AM EDT [facility] Creatinine 2.94(H) 0.60 - 1.30 mg/dL 10/12/2024 6:29 AM EDT [facility] Glucose 121(H) 70 - 100 mg/dL 10/12/2024 6:29 AM EDT [facility] Calcium 8.5(L) 8.6 - 10.3 mg/dL 10/12/2024 6:29 AM EDT [facility] Phosphorus 4.6 2.1 - 4.7 mg/dL 10/12/2024 6:29 AM EDT [facility] Albumin 3.1(L) 3.5 - 5.7 g/dL 10/12/2024 6:29 AM EDT [facility] Osmolality, Calculated 295 278 - 305 mOsm/kg 10/12/2024 6:29 AM EDT [facility] EGFR 27 10/12/2024 6:29 AM EDT [facility] Comment:As of [...] MD, PhD LAB BLOOD ORDERABLES Final Result [facility] [address] [id number], [facility] * (ABNORMAL) CBC (10/12/2024 5:44 AM EDT) WBC 3.3(L) 3.8 - 10.8 10E3/uL 10/12/2024 7:06 AM EDT [facility] RBC 1.95(L) 4.20 - 5.80 10E6/uL 10/12/2024 7:06 AM EDT [facility] Hemoglobin 7.2(L) 13.2 - 17.1 g/dL 10/12/2024 7:06 AM EDT [facility] Hematocrit 19.7(L) 38.5 - 50.0 % 10/12/2024 7:06 AM EDT [facility] MCV 101.2(H) 80.0 - 100.0 fL 10/12/2024 7:06 AM EDT [facility] MCH 37.0(H) 27.0 - 33.0 pg 10/12/2024 7:06 AM EDT [facility] MCHC 36.5(H) 32.0 - 36.0 g/dL 10/12/2024 7:06 AM EDT [facility] RDW 17.6(H) 11.0 - 15.0 % 10/12/2024 7:06 AM EDT [facility] Platelets 30(L) 140 - 400 10E3/uL 10/12/2024 7:06 AM EDT [facility] Comment: Specimen checked for clots. None detected. Slide Reviewed for PLT Clumps. None Seen. Platelet Estimate Decreased 10/12/2024 7:06 AM EDT [facility] MPV 8.3 7.5 - 11.5 fL 10/12/2024 7:06 AM EDT [facility] Whole Blood 10/12/2024 5:44 AM EDT 10/12/2024 5:58 AM EDT Narrative [facility] - 10/12/2024 7:06 AM EDT Peripheral blood smear was scanned per review criteria approved by the laboratory medical office coordinator. us Eileen Schroeder MD, PhD LAB BLOOD ORDERABLES Final Result [facility] [address] * CARISA Rhythm Strip - Scan (10/11/2024 10:04 PM EDT) us Scanning Uchhim SCAN DOCS - NO RESULTS Final Res ult * (ABNORMAL) Protime-INR (10/11/2024 3:02 AM EDT) Protime 26.8(H) 12.1 - 15.1 seconds 10/11/2024 3:30 AM EDT [facility] INR 2.4(H) 0.9 - 1.1 10/11/2024 3:30 AM EDT [facility] Comment: RECOMMENDED THERAPEUTIC RANGES USING INR : Stable oral anticoagulant therapy: 2.0 - 3.0 Mechanical prosthetic heart valve: 2.5 - 3.5 Recurrent acute myocardial infarction: 2.5 - 3.5 Plasma 10/11/2024 3:02 AM EDT 10/11/2024 3:08 AM EDT Eileen Schroeder MD, PhD LAB BLOOD ORDERABLES Final Result Performing Organization Address City/[facility]/ZIP Co de Phone Number [facility] [address] [facility]. [address] * (ABNORMAL) Hepatic Function Panel (10/11/2024 3:02 AM EDT) Total Bilirubin 7.3(H) 0.0 - 1.5 mg/dL 10/11/2024 3:38 AM EDT [facility] Bilirubin, Direct 3.85(H) 0.00 - 0.40 mg/dL 10/11/2024 3:38 AM EDT [facility] AST 39 13 - 39 U/L 10/11/2024 3:38 AM EDT [facility] ALT 20 7 - 52 U/L 10/11/2024 3:38 AM EDT [facility] Alkaline Phosphatase 88 36 - 125 U/L 10/11/2024 3:38 AM EDT [facility] Total Protein 4.5(L) 6.4 - 8.9 g/dL 10/11/2024 3:38 AM EDT [facility] Albumin 3.3(L) 3.5 - 5.7 g/dL 10/11/2024 3:38 AM EDT [facility] Bilirubin, Indirect 3.45(H) 0.00 - 1.10 mg/dL 10/11/2024 3:38 AM EDT [facility] Plasma 10/11/2024 3:02 AM EDT 10/11/2024 3:08 AM EDT Eileen Schroeder MD, PhD LAB BLOOD ORDERABLES Final Result Performing Organization Address City/[facility]/ZIP Co de Phone Number [facility] [address] [facility]. [address] * Magnesium (10/11/2024 3:02 AM EDT) Magnesium 2.0 1.5 - 2.5 mg/dL 10/11/2024 3:38 AM EDT [facility] Plasma 10/11/2024 3:02 AM EDT 10/11/2024 3:08 AM EDT us Eileen Schroeder MD, PhD LAB BLOOD ORDERABLES Final Result [facility] [address] [place] [address] * (ABNORMAL) Renal Function Panel w/EGFR (10/11/2024 3:02 AM EDT) Sodium 134 133 - 146 mmol/L 10/11/2024 3:38 AM EDT [facility] Potassium 3.6 3.5 - 5.3 mmol/L 10/11/2024 3:38 AM EDT [facility] Chloride 108 98 - 110 mmol/L 10/11/2024 3:38 AM EDT [facility] CO2 16(L) 21 - 33 mmol/L 10/11/2024 3:38 AM EDT [facility] Anion Gap 10 3 - 16 mmol/L 10/11/2024 3:38 AM EDT [facility] BUN 49(H) 7 - 25 mg/dL 10/11/2024 3:38 AM EDT [facility] Creatinine 2.77(H) 0.60 - 1.30 mg/dL 10/11/2024 3:38 AM EDT [facility] Glucose 112(H) 70 - 100 mg/dL 10/11/2024 3:38 AM EDT [facility] Calcium 8.9 8.6 - 10.3 mg/dL 10/11/2024 3:38 AM EDT [facility] Phosphorus 3.5 2.1 - 4.7 mg/dL 10/11/2024 3:38 AM EDT [facility] Albumin 3.3(L) 3.5 - 5.7 g/dL 10/11/2024 3:38 AM EDT [facility] Osmolality, Calculated 292 278 - 305 mOsm/kg 10/11/2024 3:38 AM EDT [facility] EGFR 29 10/11/2024 3:38 AM EDT [facility] Comment:As of [...] MD, PhD LAB BLOOD ORDERABLES Final Result [facility] [address] [place] [address], [facility] * (ABNORMAL) CBC (10/11/2024 3:02 AM EDT) WBC 4.0 3.8 - 10.8 10E3/uL 10/11/2024 3:55 AM EDT [facility] RBC 2.11(L) 4.20 - 5.80 10E6/uL 10/11/2024 3:55 AM EDT [facility] Hemoglobin 7.7(L) 13.2 - 17.1 g/dL 10/11/2024 3:55 AM EDT [facility] Hematocrit 21.2(L) 38.5 - 50.0 % 10/11/2024 3:55 AM EDT [facility] MCV 100.5(H) 80.0 - 100.0 fL 10/11/2024 3:55 AM EDT [facility] MCH 36.4(H) 27.0 - 33.0 pg 10/11/2024 3:55 AM EDT [facility] MCHC 36.2(H) 32.0 - 36.0 g/dL 10/11/2024 3:55 AM EDT [facility] RDW 17.9(H) 11.0 - 15.0 % 10/11/2024 3:55 AM EDT [facility] Platelets 32(L) 140 - 400 10E3/uL 10/11/2024 3:55 AM EDT [facility] Comment: Specimen checked for clots. None detected. Slide Reviewed for PLT Clumps. None Seen. Platelet Estimate Decreased 10/11/2024 3:55 AM EDT [facility] MPV 8.1 7.5 - 11.5 fL 10/11/2024 3:55 AM EDT [facility] Whole Blood 10/11/2024 3:02 AM EDT 10/11/2024 3:08 AM EDT Narrative [facility] - 10/11/2024 3:55 AM EDT Peripheral blood smear was scanned per review criteria approved by the laboratory medical office coordinator. us Eileen Schroeder MD, PhD LAB BLOOD ORDERABLES Final Result [facility] [address] * Vancomycin, random (10/11/2024 3:02 AM EDT) Vancomycin Random 13.4 ug/mL 10/11/2024 3:37 AM EDT [facility] Comment:Reference range not established for this test. Plasma 10/11/2024 3:02 AM EDT 10/11/2024 3:08 AM EDT us Jodi FreireD LAB BLOOD ORDERABLES Final Result [facility] [address] [facility]. [address] * IR Paracentesis incl imaging guide [...] diagnostic and therapeutic paracentesis. Bakari Wahl CNP, Statistical Clerk Advertising Procedure and Findings: The procedure was performed [...] Using ultrasound guidance, a 10 cm, 5-F [email or web address] Centesis catheter was placed into the right [...] for diagnostic andtherapeutic paracentesis. Bakari Wahl CNP, Statistical Clerk Advertising Procedure and Findings: The procedure was performed [...] Using ultrasound guidance, a 10 cm, 5-F [employer] Centesis catheter was placedinto the right lower [...] Colorless, Pale Yellow 10/10/2024 5:29 PM EDT [facility] Clarity, Fluid Clear 10/10/2024 5:29 PM EDT [facility] Neutrophil %, Fluid 9 % 10/10/2024 5:29 PM EDT [facility] Lymphocytes %, Fluid 13 % 10/10/2024 5:29 PM EDT [facility] Mesothelial %, Fluid 6 % 10/10/2024 5:29 PM EDT [facility] Macrophage %, Fluid 72 % 10/10/2024 5:29 PM EDT [facility] RBC, Fluid 2,662 /uL 10/10/2024 4:41 PM EDT [facility] Total Nucleated Cells, Fluid 89 /uL 10/10/2024 4:41 PM EDT [facility] Comment:Total Nucleated Cell s represent WBCs and other nucleated cells in the fluid such as lining cells. Ascitic Fluid ABDOMEN / Unknown 1:51 PM EDT 10/10/2024 3:56 PM EDT Gerri Peterson MD BODY FLUIDS AND STOOLS ORDERABL ES Final Result Performing Organization Address City/[facility]/ZIP Co de Phone Number [facility] [address] * Body Fluid Culture plus Stain (10/10/2024 1:51 PM EDT) Gram Stain Result Cytospin Results: [facility] Gram Stain Result Polymorphonuclear Leukocytes Seen; [facility] Gram Stain Result No Organisms Seen; [facility] Culture Result No Growth After 5 Days [facility] Fluid ABDOMEN / Unknown 10/10/2024 1:51 PM EDT 10/10/2024 3:56 PM EDT Gerri Peterson MD MICROBIOLOGY - GENERAL ORDERABL ES Final Result [facility] [address] * UPPER GI ENDOSCOPY (10/10/2024 11:48 AM EDT) 10/10/2024 11:4 8 AM EDT Narrative [facility] - 10/10/2024 12:34 PM EDT [id number] Procedure Date: 10/10/2024 11:48 AM Patient Name: Julien Gilbert Date of : 1985 Admit Type: Inpatient Age: 39 Gender: Male Note Status: Finalized Attending MD: Lino Soto MD, [id number] Procedure: Upper GI endoscopy Indications: Gastroesopahgeal variceal [...] verified by the physician, the nurse, the maintenance journeyman and the patient care technician in the pre-procedure area in [...] to hypotension Procedure Code(s): --- Professional --- 12893, GC, Esophagogastroduodenoscopy, flexible, transoral; diagnostic, including collection of specimen(s) by brushing or washing, when performed (separate procedure) Diagnosis Code(s): --- Professional --- I85.00, Esophageal varices without bleeding K76.6, Portal hypertension K31.89, Other diseases of stomach and duodenum CPT copyright 2022 [employer]. All rights reserved. The codes documented in this report are preliminary and upon steam turbine operator review may be revised to meet [...] In: 12:10:16 PM Scope Out: 12:17:[address] [place] [address], [facility] us Provider Not In System PROCEDURE/MINOR SURGICAL ORDERABLES Final Result Performing Organization Address [facility] Co de Phone Number [facility] * (ABNORMAL) Protime-INR (10/10/2024 5:23 AM EDT) Protime 23.9(H) 12.1 - 15.1 seconds 10/10/2024 6:11 AM EDT [facility] INR 2.1(H) 0.9 - 1.1 10/10/2024 6:11 AM EDT [facility] Comment: RECOMMENDED THERAPEUTIC RANGES USING INR : Stable oral anticoagulant therapy: 2.0 - 3.0 Mechanical prosthetic heart valve: 2.5 - 3.5 Recurrent acute myocardial infarction: 2.5 - 3.5 Plasma 10/10/2024 5:23 AM EDT 10/10/2024 5:50 AM EDT us Eileen Schroeder MD, PhD LAB BLOOD ORDERABLES Final Result Performing Organization Address City/[facility] Co de Phone Number [facility] [address] [place] [address] * (ABNORMAL) Hepatic Function Panel (10/10/2024 5:23 AM EDT) Total Bilirubin 8.6(H) 0.0 - 1.5 mg/dL 10/10/2024 6:21 AM EDT [facility] Bilirubin, Direct 4.65(H) 0.00 - 0.40 mg/dL 10/10/2024 6:21 AM EDT [facility] AST 40(H) 13 - 39 U/L 10/10/2024 6:21 AM EDT [facility] ALT 22 7 - 52 U/L 10/10/2024 6:21 AM EDT [facility] Alkaline Phosphatase 118 36 - 125 U/L 10/10/2024 6:21 AM EDT [facility] Total Protein 4.6(L) 6.4 - 8.9 g/dL 10/10/2024 6:21 AM EDT [facility] Albumin 3.3(L) 3.5 - 5.7 g/dL 10/10/2024 6:21 AM EDT [facility] Bilirubin, Indirect 3.95(H) 0.00 - 1.10 mg/dL 10/10/2024 6:21 AM EDT [facility] Plasma 10/10/2024 5:23 AM EDT 10/10/2024 5:50 AM EDT us Eileen Schroeder MD, PhD LAB BLOOD ORDERABLES Final Result Performing Organization Address City/[facility]/ZIP Co de Phone Number [facility] [address] * Magnesium (10/10/2024 5:23 AM EDT) Magnesium 1.9 1.5 - 2.5 mg/dL 10/10/2024 6:21 AM EDT [facility] Plasma 10/10/2024 5:23 AM EDT 10/10/2024 5:50 AM EDT Eileen Schroeder MD, PhD LAB BLOOD ORDERABLES Final Result Performing Organization Address City/[facility]/ZIP Co de Phone Number [facility] [address] * (ABNORMAL) Renal Function Panel w/EGFR (10/10/2024 5:23 AM EDT) Sodium 135 133 - 146 mmol/L 10/10/2024 6:21 AM EDT [facility] Potassium 3.6 3.5 - 5.3 mmol/L 10/10/2024 6:21 AM EDT [facility] Chloride 108 98 - 110 mmol/L 10/10/2024 6:21 AM EDT [facility] CO2 17(L) 21 - 33 mmol/L 10/10/2024 6:21 AM EDT [facility] Anion Gap 10 3 - 16 mmol/L 10/10/2024 6:21 AM EDT [facility] BUN 53(H) 7 - 25 mg/dL 10/10/2024 6:21 AM EDT [facility] Creatinine 2.85(H) 0.60 - 1.30 mg/dL 10/10/2024 6:21 AM EDT [facility] Glucose 113(H) 70 - 100 mg/dL 10/10/2024 6:21 AM EDT [facility] Calcium 9.0 8.6 - 10.3 mg/dL 10/10/2024 6:21 AM EDT [facility] Phosphorus 3.3 2.1 - 4.7 mg/dL 10/10/2024 6:21 AM EDT [facility] Albumin 3.3(L) 3.5 - 5.7 g/dL 10/10/2024 6:21 AM EDT [facility] Osmolality, Calculated 295 278 - 305 mOsm/kg 10/10/2024 6:21 AM EDT [facility] EGFR 28 10/10/2024 6:21 AM EDT [facility] Comment:As of [...] MD, PhD LAB BLOOD ORDERABLES Final Result [facility] [address] [place] [address], [facility] * (ABNORMAL) CBC (10/10/2024 5:23 AM EDT) WBC 5.1 3.8 - 10.8 10E3/uL 10/10/2024 6:14 AM EDT [facility] RBC 2.04(L) 4.20 - 5.80 10E6/uL 10/10/2024 6:14 AM EDT [facility] Hemoglobin 7.3(L) 13.2 - 17.1 g/dL 10/10/2024 6:14 AM EDT [facility] Hematocrit 20.6(L) 38.5 - 50.0 % 10/10/2024 6:14 AM EDT [facility] MCV 101.2(H) 80.0 - 100.0 fL 10/10/2024 6:14 AM EDT [facility] MCH 36.0(H) 27.0 - 33.0 pg 10/10/2024 6:14 AM EDT [facility] MCHC 35.5 32.0 - 36.0 g/dL 10/10/2024 6:14 AM EDT [facility] RDW 17.6(H) 11.0 - 15.0 % 10/10/2024 6:14 AM EDT [facility] Platelets 39(L) 140 - 400 10E3/uL 10/10/2024 6:14 AM EDT [facility] Comment: CNV Specimen checked for clots. None detected. MPV 9.8 7.5 - 11.5 fL 10/10/2024 6:14 AM EDT [facility] Whole Blood 10/10/2024 5:23 AM EDT 10/10/2024 5:51 AM EDT us Eileen Schroeder MD, PhD LAB BLOOD ORDERABLES Final Result Performing Organization Address City/[facility]/ZIP Co de Phone Number [facility] [address] [place] [address] * Vancomycin, random (10/10/2024 5:23 AM EDT) Vancomycin Random 16.4 ug/mL 10/10/2024 6:22 AM EDT [facility] Comment:Reference range not established for this test. Plasma 10/10/2024 5:23 AM EDT 10/10/2024 5:51 AM EDT us Jodi FreireD LAB BLOOD ORDERABLES Final Result Performing Organization Address [facility] Co de Phone Number [facility] [address] [place] [address] * ECHO STRESS W/ CONTRAST (10/09/2024 4:37 PM EDT) Anatomical Region Laterality Modality Chest Ultrasound 10/09/2024 2:40 PM EDT Narrative 10/09/2024 6:45 PM EDT * [facility]* [address] [place] [address] Stress Echocardiogram Patient: Julien Gilbert Room: 8142 Height: 76in MR Number: [id number] : 1985 Weight: 262lb Account: [id number] Gender: M BP: 125 / 77 Study Date: 10/09/2024 Age: 39 BSA: 2.48m^2 Referring physician: Gerri Peterson Interpreting physician: Tonya Henriquez MD FELLOW Lisa Jha MD PERFORMING Tonya Henriquez MD 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 The infusion was terminated [...] at baseline or with provocation, shows no dffdo-lw-jpyl atrial level shunt. - Pulmonary arteries: Systolic [...] at baseline or with provocation, shows no ciksl-hq-nvtp atrial level shunt. Pulmonary artery: - Systolic [...] at baseline or with provocation, shows no cwvmp-um-dxoq atrial level shunt. Pericardium: - There is [...] peak heart rate and blood pressure was 97520mw Hg/min. 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 PMH: EtOH Use Disorder. Risk factors: Hypertension. Dyslipidemia. Study data: Height: 76in. 193cm. Weight: 262lb. 118.8kg. The previousstudy was not available, so comparison was made to the report of 07/15/2024. Study status: Routine. Procedure: [facility] was recorded. Intravenous access [...] was augmented by the addition of hand mat machine tender and leg lifts. The infusion was terminated [...] at baseline or with provocation, shows no tvruw-ym-bvqx atrial level shunt. - Pulmonary arteries: Systolic [...] study at baseline or with provocation, showsno vljyx-ln-wiow atrial level shunt. Pulmonary artery: - Systolic [...] at baseline or with provocation, shows no xwrrp-fw-ugwf atrial level shunt. Pericardium: - There is [...] heart rate). The maximal predicted heart rate [id number]. The target heart rate was 152bpm. The target heart rate was achieved.The heart rate response to stress is normal. There is a normal resting blood pressure with an appropriate response to stress. The rate-pressureproduct for the peak heart rate and blood pressure was 69156nk Hg/min. Stress testing did not produce any [...] Reviewed and confirmed by Tonya Henriquez MD [id number] Gerri Peterson MD CV ECHO ORDERABLES Final Result * (ABNORMAL) Renal Function Panel w/EGFR, STAT (10/09/2024 1:05 PM EDT) Sodium 134 133 - 146 mmol/L 10/09/2024 2:10 PM EDT [facility] Potassium 3.7 3.5 - 5.3 mmol/L 10/09/2024 2:10 PM EDT [facility] Chloride 105 98 - 110 mmol/L 10/09/2024 2:10 PM EDT [facility] CO2 17(L) 21 - 33 mmol/L 10/09/2024 2:10 PM EDT [facility] Anion Gap 12 3 - 16 mmol/L 10/09/2024 2:10 PM EDT [facility] BUN 53(H) 7 - 25 mg/dL 10/09/2024 2:10 PM EDT [facility] Creatinine 2.89(H) 0.60 - 1.30 mg/dL 10/09/2024 2:10 PM EDT [facility] Glucose 108(H) 70 - 100 mg/dL 10/09/2024 2:10 PM EDT [facility] Calcium 9.3 8.6 - 10.3 mg/dL 10/09/2024 2:10 PM EDT [facility] Phosphorus 3.4 2.1 - 4.7 mg/dL 10/09/2024 2:10 PM EDT [facility] Albumin 3.6 3.5 - 5.7 g/dL 10/09/2024 2:10 PM EDT [facility] Osmolality, Calculated 293 278 - 305 mOsm/kg 10/09/2024 2:10 PM EDT [facility] EGFR 27 10/09/2024 2:10 PM EDT [facility] Comment:As [...] EDT 10/09/2024 1:22 PM EDT us Eileen Schroeedr MD, PhD LAB BLOOD ORDERABLES Final Result [facility] [address] * (ABNORMAL) Renal Function Panel w/EGFR, STAT (10/09/2024 8:14 AM EDT) Sodium 134 133 - 146 mmol/L 10/09/2024 8:47 AM EDT [facility] Potassium 3.4(L) 3.5 - 5.3 mmol/L 10/09/2024 8:47 AM EDT [facility] Chloride 107 98 - 110 mmol/L 10/09/2024 8:47 AM EDT [facility] CO2 17(L) 21 - 33 mmol/L 10/09/2024 8:47 AM EDT [facility] Anion Gap 10 3 - 16 mmol/L 10/09/2024 8:47 AM T [facility] BUN 54(H) 7 - 25 mg/dL 10/09/2024 8:47 AM EDT [facility] Creatinine 3.04(H) 0.60 - 1.30 mg/dL 10/09/2024 8:47 AM EDT [facility] Glucose 124(H) 70 - 100 mg/dL 10/09/2024 8:47 AM EDT [facility] Calcium 9.0 8.6 - 10.3 mg/dL 10/09/2024 8:47 AM EDT [facility] Phosphorus 3.5 2.1 - 4.7 mg/dL 10/09/2024 8:47 AM EDT [facility] Albumin 3.4(L) 3.5 - 5.7 g/dL 10/09/2024 8:47 AM T [facility] Osmolality, Calculated 294 278 - 305 mOsm/kg 10/09/2024 8:47 AM EDT [facility] EGFR 26 10/09/2024 8:47 AM EDT [facility] Comment:As of [...] Final Resu lt [facility] [address] * Prepare RBC, leukoreduced, 1 Units (10/09/2024 6:16 AM EDT) Product Code T9604G46 HCLL Unit Number [id number] HCLL Dispense Status Presumed Transfused_PT HCLL Blood Expiration Date [id number] HCLL Coding System [id number] [facility] Blood Bank Product Eileen Schroeder MD, PhD BLOOD BANK PRODUCT OR DERABLES Final Result Performing Organization Address City/[facility]/ZIP Co de Phone Number HCLL * (ABNORMAL) Protime-INR (10/09/2024 4:59 AM EDT) Protime 26.5(H) 12.1 - 15.1 seconds 10/09/2024 6:30 AM EDT [facility] INR 2.4(H) 0.9 - 1.1 10/09/2024 6:30 AM EDT [facility] Comment: RECOMMENDED THERAPEUTIC RANGES USING INR : Stable oral anticoagulant therapy: 2.0 - 3.0 Mechanical prosthetic heart valve: 2.5 - 3.5 Recurrent acute myocardial infarction: 2.5 - 3.5 Plasma 10/09/2024 4:59 AM EDT 10/09/2024 5:55 AM EDT Eileen Schroeder MD, PhD LAB BLOOD ORDERABLES Final Result Performing Organization Address City/[facility]/ZIP Co de Phone Number [facility] [address] [facility]. [address] * (ABNORMAL) Hepatic Function Panel (10/09/2024 4:59 AM EDT) Total Bilirubin 9.0(H) 0.0 - 1.5 mg/dL 10/09/2024 6:42 AM EDT [facility] Bilirubin, Direct 4.60(H) 0.00 - 0.40 mg/dL 10/09/2024 6:42 AM EDT [facility] AST 38 13 - 39 U/L 10/09/2024 6:42 AM EDT [facility] ALT 18 7 - 52 U/L 10/09/2024 6:42 AM EDT [facility] Alkaline Phosphatase 122 36 - 125 U/L 10/09/2024 6:42 AM EDT [facility] Total Protein 4.8(L) 6.4 - 8.9 g/dL 10/09/2024 6:42 AM EDT [facility] Albumin 3.4(L) 3.5 - 5.7 g/dL 10/09/2024 6:42 AM EDT [facility] Bilirubin, Indirect 4.40(H) 0.00 - 1.10 mg/dL 10/09/2024 6:42 AM EDT [facility] Plasma 10/09/2024 4:59 AM EDT 10/09/2024 5:57 AM EDT Eileen Schroeder MD, PhD LAB BLOOD ORDERABLES Final Result [facility] [address] [facility]. [address] * Magnesium (10/09/2024 4:59 AM EDT) Magnesium 1.8 1.5 - 2.5 mg/dL 10/09/2024 6:42 AM EDT [facility] Plasma 10/09/2024 4:59 AM EDT 10/09/2024 5:57 AM EDT us Eileen Schroeder MD, PhD LAB BLOOD ORDERABLES Final Result [facility] [address] [place] [address], [facility] * (ABNORMAL) Renal Function Panel w/EGFR (10/09/2024 4:59 AM EDT) Sodium 134 133 - 146 mmol/L 10/09/2024 6:42 AM EDT [facility] Potassium 3.3(L) 3.5 - 5.3 mmol/L 10/09/2024 6:42 AM EDT [facility] Chloride 107 98 - 110 mmol/L 10/09/2024 6:42 AM EDT [facility] CO2 16(L) 21 - 33 mmol/L 10/09/2024 6:42 AM EDT [facility] Anion Gap 11 3 - 16 mmol/L 10/09/2024 6:42 AM EDT [facility] BUN 56(H) 7 - 25 mg/dL 10/09/2024 6:42 AM EDT [facility] Creatinine 2.98(H) 0.60 - 1.30 mg/dL 10/09/2024 6:42 AM EDT [facility] Glucose 112(H) 70 - 100 mg/dL 10/09/2024 6:42 AM EDT [facility] Calcium 9.0 8.6 - 10.3 mg/dL 10/09/2024 6:42 AM EDT [facility] Phosphorus 3.5 2.1 - 4.7 mg/dL 10/09/2024 6:42 AM EDT [facility] Albumin 3.4(L) 3.5 - 5.7 g/dL 10/09/2024 6:42 AM EDT [facility] Osmolality, Calculated 294 278 - 305 mOsm/kg 10/09/2024 6:42 AM EDT [facility] EGFR 26 10/09/2024 6:42 AM EDT [facility] Comment:As of [...] MD, PhD LAB BLOOD ORDERABLES Final Result [facility] [address] [place] [address], [facility] * (ABNORMAL) CBC (10/09/2024 4:59 AM EDT) WBC 4.6 3.8 - 10.8 10E3/uL 10/09/2024 6:21 AM EDT [facility] RBC 2.17(L) 4.20 - 5.80 10E6/uL 10/09/2024 6:21 AM EDT [facility] Hemoglobin 8.0(L) 13.2 - 17.1 g/dL 10/09/2024 6:21 AM EDT [facility] Hematocrit 21.8(L) 38.5 - 50.0 % 10/09/2024 6:21 AM EDT [facility] MCV 100.5(H) 80.0 - 100.0 fL 10/09/2024 6:21 AM EDT [facility] 36.7(H) 27.0 - 33.0 pg 10/09/2024 6:21 AM EDT [facility] MCHC 36.5(H) 32.0 - 36.0 g/dL 10/09/2024 6:21 AM EDT [facility] RDW 18.1(H) 11.0 - 15.0 % 10/09/2024 6:21 AM EDT [facility] Platelets 36(L) 140 - 400 10E3/uL 10/09/2024 6:21 AM EDT [facility] Comment:Specimen checked for clots. None detected. MPV 8.3 7.5 - 11.5 fL 10/09/2024 6:21 AM EDT [facility] Whole Blood 10/09/2024 4:59 AM EDT 10/09/2024 5:56 AM EDT us Eileen Schroeder MD, PhD LAB BLOOD ORDERABLES Final Result Performing Organization Address [facility] Co de Phone Number [facility] [address] * Renal Tx Recipient (10/09/2024 4:59 AM EDT) Renal Transplant Recipient The request and specimen(s) for this test have been received and transported to the [facility] at [address] [place] [address]. The [facility] will report results directly to the client. 10/09/2024 7:26 AM EDT [facility] Blood 10/09/2024 4:59 AM EDT 10/09/2024 7:26 AM EDT us Aaron Gonzalez MD LAB BLOOD ORDERABLES Final Resu lt Performing Organization Address [facility] Co de Phone Number [facility] [address] * Vancomycin, random (10/09/2024 4:59 AM EDT) Pathologist [facility] Vancomycin Random 11.0 ug/mL 10/09/2024 6:33 AM EDT [facility] Comment:Reference range not established for this test. Plasma 10/09/2024 4:5 9 AM EDT 10/09/2024 5:56 AM EDT us Jodi FreireD LAB BLOOD ORDERABLES Final Result [facility] [address] * (ABNORMAL) CBC (10/08/2024 5:52 PM EDT) WBC 5.6 3.8 - 10.8 10E3/uL 10/08/2024 6:52 PM EDT [facility] RBC 2.38(L) 4.20 - 5.80 10E6/uL 10/08/2024 6:52 PM EDT [facility] Hemoglobin 8.3(L) 13.2 - 17.1 g/dL 10/08/2024 6:52 PM EDT [facility] Hematocrit 24.6(L) 38.5 - 50.0 % 10/08/2024 6:52 PM EDT [facility] MCV 103.2(H) 80.0 - 100.0 fL 10/08/2024 6:52 PM EDT [facility] MCH 34.7(H) 27.0 - 33.0 pg 10/08/2024 6:52 PM EDT [facility] MCHC 33.6 32.0 - 36.0 g/dL 10/08/2024 6:52 PM EDT [facility] RDW 18.5(H) 11.0 - 15.0 % 10/08/2024 6:52 PM EDT [facility] Platelets 39(L) 140 - 400 10E3/uL 10/08/2024 6:52 PM EDT [facility] Comment:CNV MPV 8.1 7.5 - 11.5 fL 10/08/2024 6:52 PM EDT [facility] Whole Blood 10/08/2024 5:52 PM EDT 10/08/2024 6:45 PM EDT us Eileen Schroeder MD, PhD LAB BLOOD ORDERABLES Final Result [facility] [address] * Transfuse RBC Has consent been obtained? Yes; Transfusion Rate: Per dept routine (10/08/2024 1:17 PM EDT) us Eileen Schroeder MD, PhD NURSING TREATMENT ORD ERABLES - BLOOD ADMIN Final Result Performing Organization Address City/[facility]/ZIP Co de Phone Number EXTERNAL * Transfuse RBC Has consent been obtained? Yes; Transfusion Rate: Per dept routine, 1 Units (10/08/2024 1:17 PM EDT) Eileen Schroeder MD, PhD NURSING TREATMENT ORD ERABLES - BLOOD ADMIN Final Result Performing Organization Address City/[facility] Co de Phone Number EXTERNAL * (ABNORMAL) MMR(IgG) Panel (Measles, Mumps, Rubella) (10/08/2024 10:25 AM EDT) Mumps IgG Positive 10/08/2024 11:39 AM EDT [facility] MUMPS IGG NUM 99.00(H) 0.0 - 8.9 U/mL 10/08/2024 11:39 AM EDT [facility] Rubella IgG Scr Positive 10/08/2024 11:40 AM EDT [facility] RUB NUM 4.15(H) 0.00 - 0.89 INDEX 10/08/2024 11:40 AM EDT [facility] Rubeola Ab, IgG Positive 10/08/2024 11:39 AM EDT [facility] RUB IGG NUM 273.00(H) 0.00 - 13.40 U/mL 10/08/2024 11:39 AM EDT [facility] Serum 10/08/2024 10:2 5 [...] ORDERABLES Final Resu lt Performing Organization Address City/[facility]/ZIP Co de Phone Number [facility] [address] * (ABNORMAL) Hemoglobin A1C (10/08/2024 10:25 AM EDT) Hemoglobin A1C 3.7(L) 4.0 - 5.6 % 10/09/2024 1:22 PM EDT [facility] Comment: Hemoglobin A1c Interpretation [...] Resu lt [facility] [address] * (ABNORMAL) Vitamin D 25 Hydroxy (10/08/2024 10:25 AM EDT) Vit D, 25-Hydroxy 7.1(L) 30.0 - 100.0 ng/mL 10/08/2024 11:36 AM EDT [facility] Comment: Vitamin D deficiency has been defined by the [place] of [employer] (IOM) and an Endocrine Society [...] ORDERABLES Final Resu lt Performing Organization Address City/[facility]/ZIP Co de Phone Number [facility] [address] [facility]. [address] * Iron Studies (Iron + TIBC) (10/08/2024 10:25 AM EDT) Iron 81 50 - 212 ug/dL 10/08/2024 11:23 AM EDT [facility] % Iron Saturation SEE COMMENT 15.0 - 55.0 % 10/08/2024 11:23 AM EDT [facility] Comment:Unable to calculate result because contributing result outside reportable range.. TIBC SEE COMMENT 261 - 462 ug/dL 10/08/2024 11:23 AM EDT [facility] Comment:Unable to calculate result because contributing result outside reportable range.. Serum 10/08/2024 10:2 5 AM EDT 10/08/2024 10:49 AM EDT us Gerri Peterson MD LAB BLOOD ORDERABLES Final Resu lt Performing Organization Address [facility]/ZIP Co de Phone Number [facility] [address] [facility]. [address] * (ABNORMAL) Ferritin (10/08/2024 10:25 AM EDT) Ferritin 706.9(H) 23.9 - 336.2 ng/mL 10/08/2024 11:35 AM EDT [facility] Serum 10/08/2024 10:2 5 AM EDT 10/08/2024 10:49 AM EDT us Gerri Peterson MD LAB BLOOD ORDERABLES Final Resu lt [facility] [address] [facility]. [address] * QuantiFERON TB2 Ag (10/08/2024 10:25 AM EDT) QuantiFERON TB2 Ag Value 0.07 10/10/2024 10:41 AM EDT [facility] Plasma 10/08/2024 10:2 5 AM EDT 10/08/2024 11:05 AM EDT Gerri Peterson MD LAB BLOOD ORDERABLES Final Resu lt [facility] [address] [place] [address]. [address] * QuantiFERON TB1 Ag (10/08/2024 10:25 AM EDT) QuantiFERON TB1 Ag Value 0.06 10/10/2024 10:41 AM EDT [facility] Plasma 10/08/2024 10:2 5 AM EDT 10/08/2024 11:05 AM EDT Result [facility] Gerri Peterson MD LAB BLOOD ORDERABLES Final Resu lt Performing Organization Address [facility] Co de Phone Number [facility] [address] [facility]. [address] * QuantiFERON Nil (10/08/2024 10:25 AM EDT) QuantiFERON Nil 0.06 10:41 AM EDT [facility] Plasma 10/08/2024 10:2 5 AM EDT 10/08/2024 11:05 AM EDT Result [facility] Gerri Peterson MD LAB BLOOD ORDERABLES Final Resu lt Performing Organization Address [facility] Co de Phone Number [facility] [address] [place] [address]. [address] * QuantiFERON Mitogen (10/08/2024 10:25 AM EDT) QuantiFERON Interpretation Negative Negative 10/10/2024 10:41 AM EDT [facility] Comment:Negative result geovanny cates M. tuberculosis infection is NOT likely. Negative results do not preclude tuberculosis infection (especially in immunosuppressed patients). Negative results have a TB antigen minus Nil value less than 0.35 IU/mL. In cases with high suspicion of disease, retesting or additional testing with medical evaluation may be useful. QuantiFERON Mitogen 4.87 10/10 10:41 AM EDT [facility] Plasma 10/08/2024 10:2 5 AM EDT 10/08/2024 11:05 AM EDT Narrative [facility] - 10/10/2024 10:41 AM [...] Final Resu lt [facility] [address] [place], [place] [address] * Reticulocyte Count, Auto (10/08/2024 7:41 AM EDT) Retic Ct Pct 1.35 0.50 - 2.00 % 10/08/2024 9:12 AM EDT [facility] Retic Ct Abs 26,190 25,000 - 90,000 /uL 10/08/2024 9:14 AM EDT [facility] Immature Retic Fract 0.37 0.09 - 0.56 10/08/2024 9:12 AM EDT [facility] Whole Blood 10/08/2024 7:41 AM EDT 10/08/2024 8:51 AM EDT us Angie Blanchard MD LAB BLOOD ORDERABLES Final Res ult [facility] [address] [place] [address], [facility] * (ABNORMAL) Haptoglobin (10/08/2024 7:41 AM EDT) Haptoglobin <30(L) 44 - 215 mg/dL 10/08/2024 8:53 AM EDT [facility] Serum 10/08/2024 7:41 AM EDT 10/08/2024 7:51 AM EDT us Eileen Schroeder MD, PhD LAB BLOOD ORDERABLES Final Result Performing Organization Address [facility]/ZIP Co de Phone Number [facility] [address] [facility]. [address] * (ABNORMAL) CBC - Post Transfusion (10/08/2024 7:41 AM EDT) WBC 3.7(L) 3.8 - 10.8 10E3/uL 10/08/2024 8:34 AM EDT [facility] RBC 1.94(L) 4.20 - 5.80 10E6/uL 10/08/2024 8:34 AM EDT [facility] Hemoglobin 7.1(L) 13.2 - 17.1 g/dL 10/08/2024 8:34 AM EDT [facility] Hematocrit 20.0(L) 38.5 - 50.0 % 10/08/2024 8:34 AM EDT [facility] MCV 103.1(H) 80.0 - 100.0 fL 10/08/2024 8:34 AM EDT [facility] MCH 36.5(H) 27.0 - 33.0 pg 10/08/2024 8:34 AM EDT [facility] MCHC 35.4 32.0 - 36.0 g/dL 10/08/2024 8:34 AM EDT [facility] RDW 17.2(H) 11.0 - 15.0 % 10/08/2024 8:34 AM EDT [facility] Platelets 37(L) 140 - 400 10E3/uL 10/08/2024 8:34 AM EDT [facility] Comment: Specimen checked for clots. None detected. Slide Reviewed for PLT Clumps. None Seen. _Platelet Morphology Normal _Platelets Appear Decreased MPV 8.7 7.5 - 11.5 fL 10/08/2024 8:34 AM EDT [facility] Whole Blood 10/08/2024 7:41 AM EDT 10/08/2024 7:52 AM EDT Narrative [facility] - 10/08/2024 8:34 AM EDT Post-transfusion Eileen Schroeder MD, PhD LAB BLOOD ORDERABLES Final Result [facility] [address] [place] [address]. [address] * Antibody Screen (10/08/2024 7:41 AM EDT) Antibody Screen Negative 10/08/2024 8:26 AM EDT [facility] Blood 10/08/2024 7:41 AM EDT 10/08/2024 7:57 AM EDT Narrative [facility] - 10/08/2024 8:32 AM EDT Testing performed by [facility] Transfusion Service Eileen Schroeder MD, PhD BLOOD BANK TEST ORDER PAL Final Result Performing Organization Address City/[facility]/ZIP Co de Phone Number [facility] [address] [facility]. [address] * ABO/Rh (10/08/2024 7:41 AM EDT) ABO Grouping O 10/08/2024 8:14 AM EDT [facility] Rh Type Positive 10/08/2024 8:14 AM EDT [facility] Blood 10/08/2024 7:41 AM EDT 10/08/2024 7:57 AM EDT Eileen Schroeder MD, PhD BLOOD BANK TEST ORDER PAL Final Result [facility] [address] * (ABNORMAL) Lactate dehydrogenase (10/08/2024 5:36 AM EDT) LD 102(L) 110 - 270 U/L 10/08/2024 8:20 AM EDT [facility] Plasma 10/08/2024 5:36 AM EDT 10/08/2024 7:58 AM EDT us Angie Blanchard MD LAB BLOOD ORDERABLES Final Res ult [facility] [address] [facility]. [address] * (ABNORMAL) Protime-INR (10/08/2024 5:36 AM EDT) Pathologist [facility] Protime 26.9(H) 12.1 - 15.1 seconds 10/08/2024 6:11 AM EDT [facility] INR 2.4(H) 0.9 - 1.1 10/08/2024 6:11 AM EDT [facility] Comment: RECOMMENDED THERAPEUTIC RANGES USING INR : Stable oral anticoagulant therapy: 2.0 - 3.0 Mechanical prosthetic heart valve: 2.5 - 3.5 Recurrent acute myocardial infarction: 2.5 - 3.5 Plasma 10/08/2024 5:36 AM EDT 10/08/2024 5:52 AM EDT us Eileen Schroeder MD, PhD LAB BLOOD ORDERABLES Final Result [facility] [address] * (ABNORMAL) Hepatic Function Panel (10/08/2024 5:36 AM EDT) Total Bilirubin 7.7(H) 0.0 - 1.5 mg/dL 10/08/2024 6:25 AM EDT [facility] Bilirubin, Direct 4.28(H) 0.00 - 0.40 mg/dL 10/08/2024 6:25 AM EDT [facility] AST 34 13 - 39 U/L 10/08/2024 6:25 AM EDT [facility] ALT 16 7 - 52 U/L 10/08/2024 6:25 AM EDT [facility] Alkaline Phosphatase 103 36 - 125 U/L 10/08/2024 6:25 AM EDT [facility] Total Protein 4.7(L) 6.4 - 8.9 g/dL 10/08/2024 6:25 AM EDT [facility] Albumin 3.5 3.5 - 5.7 g/dL 10/08/2024 6:25 AM EDT [facility] Bilirubin, Indirect 3.42(H) 0.00 - 1.10 mg/dL 10/08/2024 6:25 AM EDT [facility] Plasma 10/08/2024 5:36 AM EDT 10/08/2024 5:52 AM EDT Eileen Schroeder MD, PhD LAB BLOOD ORDERABLES Final Result Performing Organization Address [facility]/ZIP Co de Phone Number [facility] [address] * Magnesium (10/08/2024 5:36 AM EDT) Magnesium 1.9 1.5 - 2.5 mg/dL 10/08/2024 6:25 AM EDT [facility] Plasma 10/08/2024 5:36 AM EDT 10/08/2024 5:52 AM EDT Eileen Schroeder MD, PhD LAB BLOOD ORDERABLES Final Result [facility] [address] * (ABNORMAL) Renal Function Panel w/EGFR (10/08/2024 5:36 AM EDT) Sodium 135 133 - 146 mmol/L 10/08/2024 6:25 AM EDT [facility] Potassium 3.2(L) 3.5 - 5.3 mmol/L 10/08/2024 6:25 AM EDT [facility] Chloride 106 98 - 110 mmol/L 10/08/2024 6:25 AM EDT [facility] CO2 17(L) 21 - 33 mmol/L 10/08/2024 6:25 AM EDT [facility] Anion Gap 12 3 - 16 mmol/L 10/08/2024 6:25 AM EDT [facility] BUN 61(H) 7 - 25 mg/dL 10/08/2024 6:25 AM EDT [facility] Creatinine 3.10(H) 0.60 - 1.30 mg/dL 10/08/2024 6:25 AM EDT [facility] Glucose 106(H) 70 - 100 mg/dL 10/08/2024 6:25 AM EDT [facility] Calcium 9.0 8.6 - 10.3 mg/dL 10/08/2024 6:25 AM EDT [facility] Phosphorus 4.0 2.1 - 4.7 mg/dL 10/08/2024 6:25 AM EDT [facility] Albumin 3.5 3.5 - 5.7 g/dL 10/08/2024 6:25 AM EDT [facility] Osmolality, Calculated 298 278 - 305 mOsm/kg 10/08/2024 6:25 AM EDT [facility] EGFR 25 10/08/2024 6:25 AM EDT [facility] Comment:As of [...] MD, PhD LAB BLOOD ORDERABLES Final Result [facility] [address] [place] [address], [facility] * (ABNORMAL) CBC (10/08/2024 5:36 AM EDT) WBC 3.2(L) 3.8 - 10.8 10E3/uL 10/08/2024 6:41 AM EDT [facility] RBC 1.86(L) 4.20 - 5.80 10E6/uL 10/08/2024 6:41 AM EDT [facility] Hemoglobin 6.9(L) 13.2 - 17.1 g/dL 10/08/2024 6:41 AM EDT [facility] Hematocrit 18.9(L) 38.5 - 50.0 % 10/08/2024 6:41 AM EDT [facility] MCV 101.6(H) 80.0 - 100.0 fL 10/08/2024 6:41 AM EDT [facility] MCH 36.9(H) 27.0 - 33.0 pg 10/08/2024 6:41 AM EDT [facility] MCHC 36.3(H) 32.0 - 36.0 g/dL 10/08/2024 6:41 AM EDT [facility] RDW 17.0(H) 11.0 - 15.0 % 10/08/2024 6:41 AM EDT [facility] Platelets 34(L) 140 - 400 10E3/uL 10/08/2024 6:41 AM EDT [facility] Comment: Specimen checked for clots. None detected. Slide Reviewed for PLT Clumps. None Seen. Platelet Estimate Decreased 10/08/2024 6:41 AM EDT [facility] MPV 8.4 7.5 - 11.5 fL 10/08/2024 6:41 AM EDT [facility] Whole Blood 10/08/2024 5:36 AM EDT 10/08/2024 5:53 AM EDT Narrative [facility] - 10/08/2024 6:41 AM EDT Peripheral blood smear was scanned per review criteria approved by the laboratory medical office coordinator. us Eileen Schroeder MD, PhD LAB BLOOD ORDERABLES Final Result Performing Organization Address City/[facility]/ZIP Co de Phone Number [facility] [address] [facility]. [address] * Vancomycin, random (10/08/2024 5:36 AM EDT) Vancomycin Random 16.0 ug/mL 10/08/2024 6:20 AM EDT [facility] Comment:Reference range not established for this test. Plasma 10/08/2024 5:36 AM EDT 10/08/2024 5:52 AM EDT us Jodi Ortiz PharmD LAB BLOOD ORDERABLES Final Result Performing Organization Address [facility] Co de Phone Number [facility] [address] [facility]. [address] * Urine Drug Confirmation (10/07/2024 10:50 PM EDT) BARBITURATES NOT PRESENT 10/09/2024 1:33 PM EDT [facility] BENZODIAZEPINES PRESENT 1:33 PM EDT [facility] Nordiazepam 3 ng/mL 10/09/2024 1:33 PM EDT [facility] Temazepam 6 ng/mL 10/09/2024 1:33 PM EDT [facility] CANNABINOIDS NOT PRESENT 10/09/2024 1:33 PM EDT [facility] ORACLE FORMS DEVELOPER STIMULANTS NOT PRESENT 1:33 PM EDT [facility] OPIOID ANALGESICS PRESENT 025 1:33 PM EDT [facility] Oxycodone 300 ng/mL 10/09/2024 1:33 PM EDT [facility] Oxymorphone 32 ng/mL 10/09/2024 1:33 PM EDT [facility] Tramadol >1000 ng/mL 10/09/2024 1:33 PM EDT [facility] OPIOID ANTAGONISTS NOT PRESENT 10/09 1:33 PM EDT [facility] SEDATIVES/MUSCLE RELAXANTS NOT PRESENT 10/09/2024 1:33 PM EDT [facility] TRICYCLIC ANTIDEPRESSANTS NOT PRESENT 10/09/2024 1:33 PM EDT [facility] Urine 10/07/2024 10:5 0 PM EDT 10/08/2024 3:00 AM EDT Gerri Peterson MD URINE ORDERABLES Final Result Performing Organization Address [facility] Co de Phone Number [facility] [address] [facility]. [address] * Giardia Cryptosporidium Antigens (10/07/2024 10:50 PM EDT) Cryptosporidium Ag Negative Negative 2024 7:59 AM EDT [facility] Giardia Ag Negative Negative 10/08/2024 7:59 AM EDT [facility] Comment: Detection of Giardia and Cryptosporidium antigen is more sensitive and specific than microscopy. Because antigens are shed continuously, repeat testing is rarely warranted. Feces 10/07/2024 10:5 0 PM EDT 10/08/2024 1:53 AM EDT Comment:F Bisi Hernandez DO MICROBIOLOGY - GENERAL ORDERABLE S Final Result Performing Organization Address [facility] de Phone Number [facility] [address] [facility]. [address] * (ABNORMAL) Urine Drug Screen Reflex to Confirmation (10/07/2024 10:50 PM EDT) Amphetamine, 500 ng/mL Cutoff Negative Negative 10/08/2024 3:00 AM EDT [facility] Barbiturates UR, 300 ng/mL Cutoff Negative Negative 10/08/2024 3:00 AM EDT [facility] Buprenorphine, 5 ng/mL Cutoff Negative Negative 10/08/2024 3:00 AM EDT [facility] Benzodiazepines UR, 300 ng/mL Cutoff Negative Negative 10/08/2024 3:00 AM EDT [facility] Cocaine UR, 300 ng/mL Cutoff Negative Negative 10/08/2024 3:00 AM EDT [facility] Methadone, UR, 300 ng/mL Cutoff Negative Negative 10/08/2024 3:00 AM EDT [facility] Opiates UR, 300 ng/mL Cutoff Negative Negative 10/08/2024 3:00 AM EDT [facility] Oxycodone, 100 ng/mL Cutoff Presumptive Positive(A) Negative 10/08/2024 3:00 AM EDT [facility] Tricyclic Antidepressants, 300 ng/mL Cutoff Negative Negative 10/08/2024 3:00 AM EDT [facility] Comment:This test has been d eveloped and its performance characteristics determined by [facility] which is certified under the [...] Cutoff Negative Negative 10/08/2024 3:00 AM EDT [facility] Comment:This is a screening method only and may be associated with false positive and/or false negative results. Results are not definitive without additional confirmatory testing by mass spectrometry. Fentanyl, 2 ng/mL Cutoff Negative Negative 10/08/2024 3:00 AM EDT [facility] Comment:This test has been d eveloped and its performance characteristics determined by [facility] which is certified under the [...] PM EDT 10/08/2024 2:08 AM EDT Narrative [facility] - 10/08/2024 3:00 AM EDT CONFIRMATION TO FOLLOW us Gerri Peterson MD URINE ORDERABLES Final Result [facility] [address] [place], [place] [address] * Comprehensive Drug Screen (10/07/2024 10:50 PM EDT) Creatinine, Ur CANCELED mg/dL 10/08/2024 7:09 AM EDT [facility] Comment:The released value 8 7.30 was canceled by YAQUELIN on 10/08/2024 07:09 BARBITURATES CANCELED [facility] Butalbital CANCELED [facility] Phenobarbital CANCELED [facility] Secobarbital CANCELED [facility] BENZODIAZEPINES CANCELED [facility] Alprazolam CANCELED [facility] Clonazepam CANCELED [facility] Diazepam CANCELED [facility] Alpha-Hydroxyalprazo mcknight CANCELED [facility] Lorazepam [facility]ELED [facility] Midazolam [facility]ED [facility] Nordiazepam [facility]ELED [facility] Oxazepam [facility]ELED [facility] Temazepam CANCELED [facility] CANNABINOIDS CANCELED [facility] THC-COOH CANCELED [facility] ORACLE FORMS DEVELOPER STIMULANTS CANCELED [facility] Cocaine Metabolite(benzoylec gonine) [facility]CELED [facility] Amphetamine [facility]ELED [facility] Methamphetamine [facility]ELED [facility] MDA [facility]ELED [facility] MDEA [facility]CELED [facility] Phencyclindine (PCP) [facility]CELED [facility] OPIOID ANALGESICS [facility]ELED [facility] Heroin Metabolite(6-RAMONA) CANCELED [facility] Codeine [facility]ELED [facility] Morphine [facility]ELED [facility] Hydrocodone [facility]ELED [facility] Hy[facility]romorphone CANCELED [facility] Oxycodone [facility]ELED [facility] Oxymorphone [facility]ED [facility] Me[facility]idine [facility]ELED [facility] Normeperidine [facility]ELED [facility] Methadone [facility]ELED [facility] Methadone Metabolite (EDDP) CAN[facility]ELED [facility] Tramadol [facility]ELED [facility] Fentanyl [facility]ELED [facility] Norfentanyl [facility]ELED [facility] Sufentanil CANCELED [facility] OPIOID ANTAGONISTS CANCELED [facility] Buprenorphine CANCELED [facility] Norbuprenorphine [facility]ELED [facility] Naltrexone [facility]ED [facility] Naloxone [facility] SEDATIVES/MUSCLE RELAXANTS [facility] Carisoprodol [facility] Meprobamate [facility] TRICYCLIC ANTIDEPRESSANTS [facility] Amitriptyline [facility] Clomipramine [facility] Desipramine [facility] Doxepin [facility] Imipramine [facility] Nortriptyline [facility] Urine Creatinine CANCELED mg/dL [facility] Nitrite CANCELED [facility] Glutaraldehyde CANCELED [facility] pH CANCELED 10/08/2024 7:09 AM EDT [facility] Comment:The released value 5 .6 was canceled by YAQUELIN on 10/08/2024 07:09 Specific [place] CANCELED 10/09/19 7:09 AM EDT [facility] Comment:The released value 1 .009 was canceled by YAQUELIN on 10/08/2024 07:09 Bleach CANCELED [facility] Pyridinium Chlorochromate CANCELED [facility] Urine 10/07/2024 10:5 0 PM EDT 10/08/2024 2:07 AM EDT Narrative [facility] - 10/08/2024 7:09 AM EDT See accn [id number] Gerri Peterson MD URINE ORDERABLES Edited Result - Final [facility] [address] * Ova and Parasite Comprehensive w/ Giardia/Crypto (10/07/2024 10:50 PM EDT) O & P Method: Concentration and Trichrome Stain [facility] Results No Amoeba, Ova, Or Parasites Seen. -- O and P examination of additional specimens is recommended only for symptomatic patients, immunosuppressed patients or those with an appropriate travel history. [facility] Feces FECES / Unknown 10/07/2024 1 0:50 PM EDT 10/08/2024 1:53 AM EDT Comment:F Bisi Hernandez DO MICROBIOLOGY - GENERAL ORDERABLE S Final Result Performing Organization Address City/State/ZIP Sc de Phone Number [facility] [address] [place] [address], [facility] * Enteric Pathogen Panel (10/07/2024 10:50 PM EDT) Campylobacter Group (C. ecoli, C. jejuni, C. trino) Not Detected Not Detected 10/08/2024 4:40 AM EDT [facility] Salmonella species Not Detected Not Detected 10/08/2024 4:40 AM EDT [facility] Shigella species Not Detected Not Detected 10/08/2024 4:40 AM EDT [facility] Vibrio Group (Vibrio cholerae, Vibrio parahaemolyticus) Not Detected Not Detected 10/08/2024 4:40 AM EDT [facility] Yersinia enterocolitica Not Detected Not Detected 10/08/2024 4:40 AM EDT [facility] Shiga toxin 1 Not Detected Not Detected 10/08/2024 4:40 AM EDT [facility] Shiga toxin 2 Not Detected Not Detected 10/08/2024 4:40 AM EDT [facility] Norovirus Not Detected Not Detected 10/08/2024 4:40 AM EDT [facility] Rotavirus Not Detected Not Detected 10/08/2024 4:40 AM EDT [facility] Comment: The Enteric Pathogen [...] ORDERABLE S Final Result Performing Organization Address City/State/[facility] Co de Phone Number [facility] [address] * Hepatitis C Antibody (10/07/2024 6:38 PM EDT) HCV Ab Nonreactive Nonreactive 10/07/2024 7:56 PM EDT [facility] Comment:Health Department no tified in accordance with reportable infectious disease guidelines. Serum 10/07/2024 6:38 PM EDT 10/07/2024 6:52 PM EDT [facility] - 10/07/2024 7:56 PM EDT Antibodies to HCV not detected; does not exclude the possibility of exposure to HCV. Gerri Peterson MD LAB BLOOD ORDERABLES Final Resu lt Performing Organization Address [facility] Co de Phone Number [facility] [address] [facility]. [address] * Hepatitis B Surface Antibody, Quantitati (10/07/2024 6:38 PM EDT) Hep B S Ab Nonreactive Nonreactive 10/07/2024 8:00 PM EDT [facility] HBSAB NUMBER 7.88 0.00 - 7.99 mIU/mL 10/07/2024 8:00 PM EDT [facility] Serum 10/07/2024 6:38 PM EDT 10/07/2024 6:52 PM EDT Narrative [facility] - 10/07/2024 8:00 PM EDT Individual is considered not immune to HBV infection. Gerri Peterson MD LAB BLOOD ORDERABLES Final Resu lt Performing Organization Address City/[facility]/ZIP Co de Phone Number [facility] [address] [facility]. [address] * Hepatitis B surface antigen (10/07/2024 6:38 PM EDT) Hep B Surface Ag Nonreactive Nonreactive 10/07/2024 7:51 PM EDT [facility] Comment:Health Department no tified in accordance with reportable infectious disease guidelines. Serum 10/07/2024 6:38 PM EDT 10/07/2024 6:52 PM EDT [facility] - 10/07/2024 7:51 PM EDT Specimen is considered negative for HBsAg. Gerri Peterson MD LAB BLOOD ORDERABLES Final Resu lt Performing Organization Address City/[facility]/ZIP Co de Phone Number [facility] [address] [facility]. [address] * Hepatitis A Antibody Total (10/07/2024 6:38 PM EDT) Anti-HAV Total (IgG + IgM) Nonreactive 10/07/2024 7:53 PM EDT [facility] Serum 10/07/2024 6:38 PM EDT 10/07/2024 6:52 PM EDT [facility] - 10/07/2024 7:53 PM EDT HAV antibodies not detected Gerri Peterson MD LAB BLOOD ORDERABLES Final Resu lt Performing Organization Address [facility] Co de Phone Number [facility] [address] [facility]. [address] * Hepatitis A IgM (10/07/2024 6:38 PM EDT) Hep A IgM Nonreactive Nonreactive 10/07/2024 7:46 PM EDT [facility] Serum 10/07/2024 6:38 PM EDT 10/07/2024 6:52 PM EDT [facility] - 10/07/2024 7:46 PM EDT IgM anti-HAV not detected. Does not exclude the possibility of exposure to or infection with HAV. Levels of IgM anti-HAV may be below the cut-off in early infection. Gerri Peterson MD LAB BLOOD ORDERABLES Final Resu lt Performing Organization Address City/[facility]/ZIP Co de Phone Number [facility] [address] [facility]. [address] * (ABNORMAL) Lipid Profile (10/07/2024 6:37 PM EDT) Non-HDL Cholesterol, Calculated See Note 0 - 129 mg/dL 10/07/2024 7:42 PM EDT [facility] Comment: Desirable: < 130 mg/dL Above Desirable: 130-159 mg/dL Borderline High: 160-189 mg/dL High: 190-219 mg/dL Very High: > 219 mg/dL Unable to calculate result either because contributing result(s) are outside of reportable range or are not available. Cholesterol, Total <25 0 - 200 mg/dL 10/07/2024 7:42 PM EDT [facility] Triglycerides 30 10 - 149 mg/dL 10/07/2024 7:42 PM EDT [facility] HDL 4(L) 60 - 92 mg/dL 10/07/2024 7:42 PM EDT [facility] Comment: LIPID PROFILE INTERPRETATION [...] Cholesterol See Note mg/dL 7:42 PM EDT [facility] Comment:Unable to calculate result either because contributing result(s) are outside of reportable range or are not available. Plasma 10/07/2024 6:37 PM EDT 10/07/2024 7:06 PM EDT Narrative HEALTH LAB - 10/07/2024 7:42 PM EDT LDL cholesterol calculated using the Friedewald equation. us Gerri Peterson MD LAB BLOOD ORDERABLES Final Resu lt [facility] [address] [place] [address], [facility] * (ABNORMAL) Alpha 1 Antitrypsin AAT Quant & Mutation (10/07/2024 6:37 PM EDT) A-1 Antitrypsin 99(L) 101 - 187 mg/dL 10/09/2024 4:28 AM EDT [facility] A-1 Antitrypsin Pheno Comment 10/10/2024 4:05 PM EDT [facility] Comment: A1A Phenotype is consistent with a heterozygous phenotype consisting of one M (normal) allele and one allele that cannot be identified at this time. The unknown allele is not consistent with Z (deficient), S (deficient), or F (deficient). MM Phenotype is considered to be normal , producing normal serum levels of [id number] inhibitor and not associated with clinical disease. [...] - 10/10/2024 4:08 PM EDT PERFORMED AT: [facility] [id number] HOT DIP GALVANIZER: Bassam Khalil, PhD PHONE: [phone] PERFORMED AT: [facility] [id number] HOT DIP GALVANIZER: Mandy Abdul MD PHONE: [phone] Result [facility] Gerri Peterson MD LAB BLOOD ORDERABLES Final Resu lt [facility] [address] [facility]. [address] * (ABNORMAL) CMV IgG Antibody (10/07/2024 6:37 PM EDT) Pathologist [facility] CMV IgG Positive(A ) Negative 10/07/2024 8:26 PM EDT [facility] CMV IGG NUM 8.40(H) 0.00 - 0.59 U/mL 10/07/2024 8:26 PM EDT [facility] Serum 10/07/2024 6:37 PM EDT 10/07/2024 6:50 PM EDT Gerri Peterson MD LAB BLOOD ORDERABLES Final Resu lt Performing Organization Address [facility]/ZIP Co de Phone Number [facility] [address] [facility]. [address] * HIV-1 and HIV-2 Antibodies w Reflex (10/07/2024 6:37 PM EDT) Pathologist [facility] HIV 1+2 AB/AGN Nonreactive Nonreactive 10/07/2024 7:54 PM EDT [facility] Serum 10/07/2024 6:37 PM EDT 10/07/2024 7:06 PM EDT Narrative [facility] - 10/07/2024 7:54 PM EDT \HIVRNR Result [facility] Gerri Peterson MD LAB BLOOD ORDERABLES Final Resu lt [facility] [address] [facility]. [address] * TSH (Thyroid Stimulating Hormone) (10/07/2024 6:37 PM EDT) Pathologist [facility] TSH 0.81 0.45 - 4.12 uIU/mL 10/07/2024 8:17 PM EDT [facility] Serum 10/07/2024 6:37 PM EDT 10/07/2024 6:50 PM EDT Gerri Peterson MD LAB BLOOD ORDERABLES Final Resu lt Performing Organization Address City/[facility] Co de Phone Number [facility] [address] [place] [address] * Katie-Watkins virus early antigen antibody, IgG (10/07/2024 6:37 PM EDT) [facility] EBV Early Antigen Ab, IgG <9.0 0.0 - 8.9 U/mL 10/09/2024 2:16 PM EDT [facility] Comment: Negative < 9.0 Equivocal 9.0 - 10.9 Positive >10.9 Serum Frozen 10/07/2024 6:37 PM EDT 10/09/2024 3:07 PM EDT Narrative [facility] - 10/09/2024 3:07 PM EDT PERFORMED AT: [facility] [address] [id number] HOT DIP GALVANIZER: Bassam Khalil, PhD PHONE: [phone] Gerri Peterson MD LAB BLOOD ORDERABLES Final Resu lt Performing Organization Address [facility] de Phone Number [facility] [address] [place] [address] * (ABNORMAL) Varicella zoster antibody, IgG (10/07/2024 6:37 PM EDT) Pathologist [facility] Varicella IgG Positive( A) Negative S/CO 10/07/2024 8:34 PM EDT [facility] Comment:Result indicates the presence [...] - 0.99 S/CO 10/07/2024 8:34 PM EDT [facility] Serum 10/07/2024 6:37 PM EDT 10/07/2024 6:50 PM EDT Gerri Peterson MD LAB BLOOD ORDERABLES Final Resu lt Performing Organization Address [facility] de Phone Number [facility] [address] [place] [address] * Toxoplasma gondii antibody, IgG (10/07/2024 6:37 PM EDT) Toxoplasma Gondii IgG <3.0 0.0 - 7.1 IU/mL 10/09/2024 7:53 AM EDT [facility] Comment: Negative <7.2 Equivocal 7.2 - 8.7 Positive >8.7 Serum 10/07/2024 6:37 PM EDT 10/09/2024 8:07 AM EDT Narrative [facility] - 10/09/2024 8:07 AM EDT PERFORMED AT: [facility] [id number] HOT DIP GALVANIZER: Bassam Khalil, PhD PHONE: [phone] Gerri Peterson MD LAB BLOOD ORDERABLES Final Resu lt Performing Organization Address [facility] de Phone Number [facility] [address] [place] [address]. [address] * Syphilis Screening (Trepia) (10/07/2024 6:37 PM EDT) Treponema Pallidum Negative Negative 10/07/2024 8:27 PM EDT [facility] Comment: No serological evidence of infection with Treponema pallidum (incubating or early primary syphilis cannot be excluded). Serum 10/07/2024 6:37 PM EDT 10/07/2024 6:50 PM EDT Gerri Peterson MD LAB BLOOD ORDERABLES Final Resu lt [facility] [address] [facility]. [address] * Strongyloides Ab (10/07/2024 6:37 PM EDT) Strongyloides Ab Negative Negative 10/11/19 11:51 AM EDT [facility] Serum 10/07/2024 6:37 PM EDT 10/10/2024 12:07 PM EDT Narrative [facility] - 10/10/2024 12:07 PM EDT PERFORMED AT: [facility] [id number] HOT DIP GALVANIZER: Mandy Abdul MD PHONE: [phone] us Gerri Peterson MD LAB BLOOD ORDERABLES Final Resu lt Performing Organization Address [facility]/ZIP Co de Phone Number [facility] [address] [facility]. [address] * Phosphatidylethanol Confirmation, B (10/07/2024 6:37 PM EDT) PETH 16:0/18.1 (POPETH) <10 Cutoff: 10 ng/mL 10/10/2024 10:42 AM EDT [facility] Comment: [...] Cutoff: 10 ng/mL 10/10/2024 10:42 AM EDT [facility] Comment: PEth 16:0/18:2 (PLPEth) Reference ranges are not well established PEth Interpretation Negative. 10/10 10:42 AM EDT [facility] Comment: ADDITIONAL INFORMATION This report is intended for use in clinical monitoring and management of patients. It is not intended for use in employment-related testing. This test was developed and its performance characteristics determined by [facility] in a manner consistent with CLIA requirements. This test has not been cleared or approved by the U.S. Food and Drug Administration. Test Performed by: [facility] [address] [place] [address] Male Infertility Specialist: Kathy Ortiz Ph.D.; CLIA# [id number] Whole Blood 10/07/2024 6:37 PM EDT 10/10/2024 10:42 AM EDT us Gerri Peterson MD LAB BLOOD ORDERABLES Final Resu lt [facility] [address] * (ABNORMAL) MMR(IgG) Panel (Measles, Mumps, Rubella) (10/07/2024 6:37 PM EDT) Mumps IgG Positive 10/07/2024 8:26 PM EDT [facility] MUMPS IGG NUM 77.80(H) 0.0 - 8.9 U/mL 10/07/2024 8:26 PM EDT [facility] Rubella IgG Scr Positive 10/07/2024 8:28 PM EDT [facility] RUB NUM 3.04(H) 0.00 - 0.89 INDEX 10/07/2024 8:28 PM EDT [facility] Rubeola Ab, IgG Positive 10/07/2024 8:26 PM EDT [facility] RUB IGG NUM 192.00(H) 0.00 - 13.40 U/mL 10/07/2024 8:26 PM EDT [facility] Serum 10/07/2024 6:37 PM EDT 10/07/2024 6:50 PM EDT Narrative [facility] - 10/07/2024 8:28 PM [...] Resu lt Performing Organization Address [facility] Co de Phone Number [facility] [address] [place] [address]. [address] * IgA (10/07/2024 6:37 PM EDT) IgA 227.0 70.0 - 400.0 mg/dL 10/08/2024 11:07 AM EDT [facility] Comment:Please interpret the se findings in conjunction with clinical findings, protein electrophoresis, and immunotyping/immunofixation results. Serum 10/07/2024 6:37 PM EDT 10/07/2024 6:50 PM EDT Result [facility] Gerri Peterson MD LAB BLOOD ORDERABLES Final Resu lt Performing Organization Address [facility] Co de Phone Number [facility] [address] [place] [address]. [address] * Ethanol, Serum (10/07/2024 6:37 PM EDT) Ethanol <10 0 - 10 mg/dL 10/07/2024 8:36 PM EDT [facility] Serum 10/07/2024 6:37 PM EDT 10/07/2024 6:50 PM EDT Result [facility] Gerri Peterson MD LAB BLOOD ORDERABLES Final Resu lt Performing Organization Address [facility] Co de Phone Number [facility] [address] [place] [address]. [address] * ABO/Rh - Second (10/07/2024 6:37 PM EDT) ABO Grouping O 10/07/2024 7:16 PM EDT [facility] Rh Type Positive 10/07/2024 7:16 PM EDT [facility] Blood 10/07/2024 6:37 PM EDT 10/07/2024 6:56 PM EDT Narrative [facility] - 10/07/2024 7:18 PM EDT This is not a duplicate order. It is required that ABO be drawn twice for LIVER TRANSPLANT Gerri Peterson MD BLOOD BANK TEST ORDERABLES Denisse l Result Performing Organization Address City/[facility]/ZIP Co de Phone Number [facility] [address] * ABO/Rh- Initial (10/07/2024 6:37 PM EDT) ABO Grouping O 10/07/2024 7:59 PM EDT [facility] Rh Type Positive 10/07/2024 7:59 PM EDT [facility] Blood 10/07/2024 6:37 PM EDT 10/07/2024 7:25 PM EDT Gerri Peterson MD BLOOD BANK TEST ORDERABLES Denisse l Result Performing Organization Address City/[facility] Co de Phone Number [facility] [address] [facility]. [address] * X-ray Mandible minimum 4-views (10/07/2024 [...] EXAM: US ABDOMEN COMPLETE EXAM: US DUPLEX [id number] COMPLETE INDICATION: elevated bilirubin COMPARISON: Ultrasound and [...] EXAM: US ABDOMEN COMPLETE EXAM: US DUPLEX [id number] COMPLETE INDICATION: elevated bilirubin COMPARISON: Ultrasound and [...] US ORDERABLES Final Result * US Duplex [id number]-Ppx-[id number] Comp (10/07/2024 3:48 PM EDT) Anatomical Region [...] EXAM: US ABDOMEN COMPLETE EXAM: US DUPLEX [id number] COMPLETE INDICATION: elevated bilirubin COMPARISON: Ultrasound and [...] EXAM: US ABDOMEN COMPLETE EXAM: US DUPLEX [id number] COMPLETE INDICATION: elevated bilirubin COMPARISON: Ultrasound and [...] MD, PhD LAB BLOOD ORDERABLES Final Result [facility] [address] * (ABNORMAL) Hepatic Function Panel (10/07/2024 6:00 AM EDT) Total Bilirubin 9.7(H) 0.0 - 1.5 mg/dL 10/07/2024 7:10 AM EDT [facility] Bilirubin, Direct 5.21(H) 0.00 - 0.40 mg/dL 10/07/2024 7:10 AM EDT [facility] AST 39 13 - 39 U/L 10/07/2024 7:10 AM EDT [facility] ALT 18 7 - 52 U/L 10/07/2024 7:10 AM EDT [facility] Alkaline Phosphatase 98 36 - 125 U/L 10/07/2024 7:10 AM EDT [facility] Total Protein 4.8(L) 6.4 - 8.9 g/dL 10/07/2024 7:10 AM EDT [facility] Albumin 3.6 3.5 - 5.7 g/dL 10/07/2024 7:10 AM EDT [facility] Bilirubin, Indirect 4.49(H) 0.00 - 1.10 mg/dL 10/07/2024 7:10 AM EDT [facility] Plasma 10/07/2024 6:00 AM EDT 10/07/2024 6:39 AM EDT us Eileen Schroeder MD, PhD LAB BLOOD ORDERABLES Final Result [facility] [address] [facility]. [address] * Magnesium (10/07/2024 6:00 AM EDT) Magnesium 1.7 1.5 - 2.5 mg/dL 10/07/2024 7:10 AM EDT [facility] Plasma 10/07/2024 6:00 AM EDT 10/07/2024 6:39 AM EDT Eileen Schroeder MD, PhD LAB BLOOD ORDERABLES Final Result [facility] [address] [place] [address], [facility] * (ABNORMAL) Renal Function Panel w/EGFR (10/07/2024 6:00 AM EDT) Sodium 132(L) 133 - 146 mmol/L 10/07/2024 7:10 AM EDT [facility] Potassium 3.9 3.5 - 5.3 mmol/L 10/07/2024 7:10 AM EDT [facility] Chloride 103 98 - 110 mmol/L 10/07/2024 7:10 AM EDT [facility] CO2 19(L) 21 - 33 mmol/L 10/07/2024 7:10 AM EDT [facility] Anion Gap 10 3 - 16 mmol/L 10/07/2024 7:10 AM EDT [facility] BUN 64(H) 7 - 25 mg/dL 10/07/2024 7:10 AM EDT [facility] Creatinine 3.38(H) 0.60 - 1.30 mg/dL 10/07/2024 7:10 AM EDT [facility] Glucose 111(H) 70 - 100 mg/dL 10/07/2024 7:10 AM EDT [facility] Calcium 9.1 8.6 - 10.3 mg/dL 10/07/2024 7:10 AM EDT [facility] Phosphorus 4.2 2.1 - 4.7 mg/dL 10/07/2024 7:10 AM EDT [facility] Albumin 3.6 3.5 - 5.7 g/dL 10/07/2024 7:10 AM EDT [facility] Osmolality, Calculated 293 278 - 305 mOsm/kg 10/07/2024 7:10 AM EDT [facility] EGFR 22 10/07/2024 7:10 AM EDT [facility] Comment:As of [...] MD, PhD LAB BLOOD ORDERABLES Final Result [facility] [address] [place] [address], [facility] * (ABNORMAL) CBC (10/07/2024 6:00 AM EDT) WBC 3.3(L) 3.8 - 10.8 10E3/uL 10/07/2024 7:55 AM EDT [facility] RBC 2.06(L) 4.20 - 5.80 10E6/uL 10/07/2024 7:55 AM EDT [facility] Hemoglobin 7.4(L) 13.2 - 17.1 g/dL 10/07/2024 7:55 AM EDT [facility] Hematocrit 21.5(L) 38.5 - 50.0 % 10/07/2024 7:55 AM EDT [facility] MCV 104.1(H) 80.0 - 100.0 fL 10/07/2024 7:55 AM EDT [facility] MCH 35.8(H) 27.0 - 33.0 pg 10/07/2024 7:55 AM EDT [facility] MCHC 34.4 32.0 - 36.0 g/dL 10/07/2024 7:55 AM EDT [facility] RDW 17.5(H) 11.0 - 15.0 % 10/07/2024 7:55 AM EDT [facility] Platelets 35(L) 140 - 400 10E3/uL 10/07/2024 7:55 AM EDT [facility] Comment: Specimen checked for clots. None detected. Slide Reviewed for PLT Clumps. None Seen. _Platelet Morphology Normal _Platelets Appear Decreased Platelet Estimate Decreased 10/07/2024 7:55 AM EDT [facility] MPV 8.0 7.5 - 11.5 fL 10/07/2024 7:55 AM EDT [facility] Whole Blood 10/07/2024 6:00 AM EDT 10/07/2024 6:40 AM EDT [facility] - 10/07/2024 7:55 AM EDT Peripheral blood smear was scanned per review criteria approved by the laboratory medical office coordinator. Eileen Schroeder MD, PhD LAB BLOOD ORDERABLES Final Result Performing Organization Address [facility] Co de Phone Number [facility] [address] [facility]. [address] * AFP Tumor Marker (10/07/2024 6:00 AM EDT) [facility] AFP-Tumor Marker 2.0 0.0 - 9.0 ng/mL 10/07/2024 7:11 AM EDT [facility] Serum 10/07/2024 6:00 AM EDT 10/07/2024 6:39 AM EDT [facility] - 10/07/2024 7:11 AM EDT The testing method for AFP is a chemiluminescent immunoassay manufactured by [employer] Concentrations of AFP obtained by different assay methods or kits may vary and cannot be used interchangeably. AFP results cannot be interpreted as absolute evidence of the presence or absence of malignant disease. Shila Rivera MD LAB BLOOD ORDERABLES Final Resul t Performing Organization Address [facility]/ZIP Co de Phone Number [facility] [id number] [facility]. [address] * Vancomycin, random (10/07/2024 6:00 AM EDT) Pathologist [facility] Vancomycin Random 21.1 ug/mL 10/07/2024 7:08 AM EDT [facility] Comment:Reference range not established for this test. Plasma 10/07/2024 6:00 AM EDT 10/07/2024 6:39 AM EDT Kiet FreireD LAB BLOOD ORDERABLES Final Re sult [place] [facility] [address] * Osmolality (10/06/2024 2:50 PM EDT) Osmolality, Measured 304 278 - 305 mOsm/kg 10/06/2024 3:49 PM EDT [facility] Serum 10/06/2024 2:50 PM EDT 10/06/2024 2:56 PM EDT Chari Vanegas MD LAB BLOOD ORDERABLES Final Resul t Performing Organization Address [facility] Co de Phone Number [facility] [address] * CT Head WO contrast (10/06/2024 [...] Eileen Schroeder MD, PhD IMG CT ORDERABLES [facility] al Result * Chloride, urine, random (10/06/2024 1:25 PM EDT) Chloride, Ur <15 mmol/L 10/06/2024 1:56 PM EDT [facility] Comment:Reference range not established for this test. Urine 10/06/2024 1:25 PM EDT 10/06/2024 1:32 PM EDT Chari Vanegas MD URINE ORDERABLES Final Result [facility] [address] * Potassium, urine, random (10/06/2024 1:25 PM EDT) Potassium Urine Random 50.0 mmol/L 10/06/2024 1:56 PM EDT [facility] Comment:Reference range not established for this test. Urine 10/06/2024 1:25 PM EDT 10/06/2024 1:32 PM EDT us Chari Vanegas MD URINE ORDERABLES Final Result Performing Organization Address [facility] Co de Phone Number [facility] [address] [facility]. [address] * Sodium, urine, random (10/06/2024 1:25 PM EDT) Sodium, Ur <10 mmol/L 10/06/2024 1:56 PM EDT [facility] Comment:Reference range not established for this test. Urine 10/06/2024 1:25 PM EDT 10/06/2024 1:32 PM EDT us Chari Vanegas MD URINE ORDERABLES Final Result Performing Organization Address [facility] Co de Phone Number [facility] [address] [facility]. [address] * Creatinine, Urine, Random (10/06/2024 1:25 PM EDT) Creatinine, Urine 87.40 mg/dL 10/06/2024 1:56 PM EDT [facility] Comment:Reference range not established for this test. Urine 10/06/2024 1:25 PM EDT 10/06/2024 1:32 PM EDT us Chari Vanegas MD URINE ORDERABLES Final Result Performing Organization Address [facility] Co de Phone Number [facility] [address] [facility]. [address] * Osmolality, Urine (10/06/2024 1:25 PM EDT) Osmolality, Ur 386 50 - 1,200 mOsm/kg 10/06/2024 1:55 PM EDT [facility] Urine 10/06/2024 1:25 PM EDT 10/06/2024 1:32 PM EDT us Chari Vanegas MD URINE ORDERABLES Final Result Performing Organization Address [facility] Co de Phone Number [facility] [address] * Urine Drug Confirmation (10/06/2024 11:51 AM EDT) BARBITURATES NOT PRESENT 10/09/2024 3:23 PM EDT [facility] Comment:Results were recheck ed. BENZODIAZEPINES PRESENT 3:23 PM EDT [facility] Nordiazepam 3 ng/mL 10/09/2024 3:23 PM EDT [facility] Comment:Results were recheck ed. Temazepam 8 ng/mL 10/09/2024 3:23 PM EDT [facility] Comment:Results were recheck ed. CANNABINOIDS NOT PRESENT 10/09/2024 3:23 PM EDT [facility] ORACLE FORMS DEVELOPER STIMULANTS NOT PRESENT 3:23 PM EDT [facility] OPIOID ANALGESICS PRESENT 025 3:23 PM EDT [facility] Oxycodone 329 ng/mL 10/09/2024 3:23 PM EDT [facility] Oxymorphone 61 ng/mL 10/09/2024 3:23 PM EDT [facility] Tramadol >1000 ng/mL 10/09/2024 3:23 PM EDT [facility] OPIOID ANTAGONISTS NOT PRESENT 10/09 3:23 PM EDT [facility] SEDATIVES/MUSCLE RELAXANTS NOT PRESENT 10/09/2024 3:23 PM EDT [facility] TRICYCLIC ANTIDEPRESSANTS NOT PRESENT 10/09/2024 3:23 PM EDT [facility] Urine 10/06/2024 11:5 1 AM EDT 10/06/2024 1:13 PM EDT us Bisi Hernandez DO URINE ORDERABLES Final Result [facility] [address] * (ABNORMAL) Urine Drug Screen Reflex to Confirmation (10/06/2024 11:51 AM EDT) Amphetamine, 500 ng/mL Cutoff Negative Negative 10/06/2024 1:13 PM EDT [facility] Barbiturates UR, 300 ng/mL Cutoff Negative Negative 10/06/2024 1:13 PM EDT [facility] Buprenorphine, 5 ng/mL Cutoff Negative Negative 10/06/2024 1:13 PM EDT [facility] Benzodiazepines UR, 300 ng/mL Cutoff Negative Negative 10/06/2024 1:13 PM EDT [facility] Cocaine UR, 300 ng/mL Cutoff Negative Negative 10/06/2024 1:13 PM EDT [facility] Methadone, UR, 300 ng/mL Cutoff Negative Negative 10/06/2024 1:13 PM EDT [facility] Opiates UR, 300 ng/mL Cutoff Negative Negative 10/06/2024 1:13 PM EDT [facility] Oxycodone, 100 ng/mL Cutoff Presumptive Positive(A) Negative 10/06/2024 1:13 PM EDT [facility] Tricyclic Antidepressants, 300 ng/mL Cutoff Negative Negative 10/06/2024 1:13 PM EDT [facility] Comment:This test has been d eveloped and its performance characteristics determined by [facility] which is certified under the [...] Cutoff Negative Negative 10/06/2024 1:13 PM EDT [facility] Comment:This is a screening method only and may be associated with false positive and/or false negative results. Results are not definitive without additional confirmatory testing by mass spectrometry. Fentanyl, 2 ng/mL Cutoff Negative Negative 10/06/2024 1:13 PM EDT [facility] Comment:This test has been d eveloped and its performance characteristics determined by [facility] which is certified under the [...] AM EDT 10/06/2024 11:58 AM EDT Narrative [facility] - 10/06/2024 1:13 PM EDT CONFIRMATION TO FOLLOW us Bisi Hernandez DO URINE ORDERABLES Final Result Performing Organization Address [facility] Co de Phone Number [facility] [address] * Chloride, urine, random (10/06/2024 11:51 AM EDT) Chloride, Ur <15 mmol/L 10/06/2024 1:13 PM EDT [facility] Comment:Reference range not established for this test. Urine 10/06/2024 11:5 1 AM EDT 10/06/2024 11:57 AM EDT Bisi Hernandez DO URINE ORDERABLES Final Result Performing Organization Address [facility] Co de Phone Number [facility] [address] * Potassium, urine, random (10/06/2024 11:51 AM EDT) Potassium Urine Random 49.0 mmol/L 10/06/2024 1:13 PM EDT [facility] Comment:Reference range not established for this test. Urine 10/06/2024 11:5 1 AM EDT 10/06/2024 11:57 AM EDT us Bisi Hernandez DO URINE ORDERABLES Final Result Performing Organization Address [facility] Co de Phone Number [facility] [address] * Sodium, urine, random (10/06/2024 11:51 AM EDT) Sodium, Ur <10 mmol/L 10/06/2024 1:13 PM EDT [facility] Comment:Reference range not established for this test. Urine 10/06/2024 11:5 1 AM EDT 10/06/2024 11:57 AM EDT us Bisidante Hernandez DO URINE ORDERABLES Final Result [facility] [address] * Urinalysis w/Rfl to Microscopic (10/06/2024 11:51 AM EDT) Color, UA Yellow Yellow,Straw 10/06/2024 12:25 PM EDT [facility] Clarity, UA Clear Clear 10/06/2024 12:25 PM EDT [facility] Specific [place], UA 1.014 1.005 - 1.035 10/06/2024 12:25 PM EDT [facility] pH, UA 6.0 5.0 - 8.0 10/06/2024 12:25 PM EDT [facility] Protein, UA Negative Negative mg/dL 10/06/2024 12:25 PM EDT [facility] Glucose, UA Negative Negative mg/dL 10/06/2024 12:25 PM EDT [facility] Ketones, UA Negative Negative mg/dL 10/06/2024 12:25 PM EDT [facility] Bilirubin, UA Negative Negative 10/06/2024 12:25 PM EDT [facility] Blood, UA Negative Negative 10/06/2024 12:25 PM EDT [facility] Nitrite, UA Negative Negative 10/06/2024 12:25 PM EDT [facility] Urobilinogen, UA <2.0 0.2 - 1.9 mg/dL 10/06/2024 12:25 PM EDT [facility] Leukocyte Esterase, UA Negative Negative 10/06/2024 12:25 PM EDT [facility] Urine 10/06/2024 11:5 1 AM EDT 10/06/2024 11:57 AM EDT Narrative [facility] - 10/06/2024 12:25 PM EDT Microscopic testing is not performed when the dipstick is negative for blood, leukocyte, protein and nitrite. us Bisi Hernandez DO URINE ORDERABLES Final Result [facility] [address] * Lactic Acid, STAT (10/06/2024 7:38 AM EDT) Lactate 0.9 0.5 - 2.2 mmol/L 10/06/2024 8:05 AM EDT [facility] Plasma 10/06/2024 7:38 AM EDT 10/06/2024 7:42 AM EDT Chari Vanegas MD LAB BLOOD ORDERABLES Final Resul t [facility] [address] * (ABNORMAL) CBC, STAT (10/06/2024 7:37 AM EDT) WBC 5.6 3.8 - 10.8 10E3/uL 10/06/2024 8:22 AM EDT [facility] RBC 2.50(L) 4.20 - 5.80 10E6/uL 10/06/2024 8:22 AM EDT [facility] Hemoglobin 9.0(L) 13.2 - 17.1 g/dL 10/06/2024 8:22 AM EDT [facility] Hematocrit 25.3(L) 38.5 - 50.0 % 10/06/2024 8:22 AM EDT [facility] MCV 101.2(H) 80.0 - 100.0 fL 10/06/2024 8:22 AM EDT [facility] MCH 36.0(H) 27.0 - 33.0 pg 10/06/2024 8:22 AM EDT [facility] MCHC 35.6 32.0 - 36.0 g/dL 10/06/2024 8:22 AM EDT [facility] RDW 17.7(H) 11.0 - 15.0 % 10/06/2024 8:22 AM EDT [facility] Platelets 52(L) 140 - 400 10E3/uL 10/06/2024 8:22 AM EDT [facility] Comment: Specimen checked for clots. None detected. Slide Reviewed for PLT Clumps. None Seen. MPV 8.2 7.5 - 11.5 fL 10/06/2024 8:22 AM EDT [facility] Whole Blood 10/06/2024 7:37 AM EDT 10/06/2024 7:43 AM EDT us Chari Vanegas MD LAB BLOOD ORDERABLES Final Resul t [facility] [address] * (ABNORMAL) Comprehensive Metabolic Panel (10/06/2024 7:37 AM EDT) Sodium 129(L) 133 - 146 mmol/L 10/06/2024 8:16 AM EDT [facility] Potassium 4.4 3.5 - 5.3 mmol/L 10/06/2024 8:16 AM EDT [facility] Chloride 100 98 - 110 mmol/L 10/06/2024 8:16 AM EDT [facility] CO2 18(L) 21 - 33 mmol/L 10/06/2024 8:16 AM EDT [facility] Anion Gap 11 3 - 16 mmol/L 10/06/2024 8:16 AM EDT [facility] BUN 62(H) 7 - 25 mg/dL 10/06/2024 8:16 AM EDT [facility] Creatinine 3.40(H) 0.60 - 1.30 mg/dL 10/06/2024 8:16 AM EDT [facility] Glucose 98 70 - 100 mg/dL 10/06/2024 8:16 AM EDT [facility] Calcium 9.5 8.6 - 10.3 mg/dL 10/06/2024 8:16 AM EDT [facility] Total Bilirubin 14.3(H) 0.0 - 1.5 mg/dL 10/06/2024 8:16 AM EDT [facility] AST 57(H) 13 - 39 U/L 10/06/2024 8:16 AM EDT [facility] ALT 29 7 - 52 U/L 10/06/2024 8:16 AM EDT [facility] Alkaline Phosphatase 158(H) 36 - 125 U/L 10/06/2024 8:16 AM EDT [facility] Total Protein 5.6(L) 6.4 - 8.9 g/dL 10/06/2024 8:16 AM EDT [facility] Albumin 3.6 3.5 - 5.7 g/dL 10/06/2024 8:16 AM EDT [facility] Osmolality, Calculated 286 278 - 305 mOsm/kg 10/06/2024 8:16 AM EDT [facility] EGFR 22 10/06/2024 8:16 AM EDT [facility] Comment:As of [...] MD LAB BLOOD ORDERABLES Final Resul t [facility] [address] [place] [id number] * (ABNORMAL) Venous Blood Gas, Line/Syringe, STAT (10/06/2024 7:37 AM EDT) PH-Line Draw 7.27(L) 7.32 - 7.42 10/06/2024 7:46 AM EDT [facility] PCO2-Line Draw 36(L) 41 - 51 mm Hg 10/06/2024 7:46 AM EDT [facility] PO2-Line Draw 44(H) 25 - 40 mm Hg 10/06/2024 7:46 AM EDT [facility] HCO3-Line Draw 17(L) 24 - 28 mmol/L 10/06/2024 7:46 AM EDT [facility] CO2 Content-Line Draw 18(L) 25 - 29 mmol/L 10/06/2024 7:46 AM EDT [facility] Base Excess-Line Draw -9.6(L) -2.0 - 3.0 mmol/L 10/06/2024 7:46 AM EDT [facility] %HBO2-Line Draw 69.8 40.0 - 70.0 % 10/06/2024 7:46 AM EDT [facility] Carboxyhgb-Ludivina e Draw 0.7 % 10/06/2024 7:46 AM EDT [facility] Comment: CARBOXYHEMOGLOBIN (CO) REFERENCE RANGES: Non-Smokers: <2 % Smokers: <8 % TOXIC: >20 % Methemoglobin- Line Draw 0.3 0.0 - 1.5 % 10/06/2024 7:46 AM EDT [facility] Reduced Hemoglobin-Ludivina e Draw 29.2(H) 0.0 - 5.0 % 10/06/2024 7:46 AM EDT [facility] Venous, Line Draw 10/06/2024 7:37 AM EDT 10/06/2024 7:43 AM EDT Chari Vanegas MD LAB BLOOD ORDERABLES Final Resul t Performing Organization Address City/State/[facility] Co de Phone Number [facility] [address] [place] [address], [facility] * (ABNORMAL) Venous Blood Gas, Line/Syringe, STAT (10/06/2024 4:03 AM EDT) PH-Line Draw 7.21(L) 7.32 - 7.42 10/06/2024 4:16 AM EDT [facility] PCO2-Line Draw 41 41 - 51 mm Hg 10/06/2024 4:16 AM EDT [facility] PO2-Line Draw 32 25 - 40 mm Hg 10/06/2024 4:16 AM EDT [facility] HCO3-Line Draw 16(L) 24 - 28 mmol/L 10/06/2024 4:16 AM EDT [facility] CO2 Content-Line Draw 18(L) 25 - 29 mmol/L 10/06/2024 4:16 AM EDT [facility] Base Excess-Line Draw -10.8(L) -2.0 - 3.0 mmol/L 10/06/2024 4:16 AM EDT [facility] %HBO2-Line Draw 47.5 40.0 - 70.0 % 10/06/2024 4:16 AM EDT [facility] Carboxyhgb-Ludivina e Draw 2.0 % 10/06/2024 4:16 AM EDT [facility] Comment: CARBOXYHEMOGLOBIN (CO) REFERENCE RANGES: Non-Smokers: <2 % Smokers: <8 % TOXIC: >20 % Methemoglobin- Line Draw 0.7 0.0 - 1.5 % 10/06/2024 4:16 AM EDT [facility] Reduced Hemoglobin-Ludivina e Draw 49.8(H) 0.0 - 5.0 % 10/06/2024 4:16 AM EDT [facility] Venous, Line Draw 10/06/2024 4:03 AM EDT 10/06/2024 4:12 AM EDT us Bisi Hernandez DO LAB BLOOD ORDERABLES Final Resul t [facility] [address] [place] [address], [facility] * (ABNORMAL) Protime-INR (10/06/2024 4:01 AM EDT) Protime 21.3(H) 12.1 - 15.1 seconds 10/06/2024 4:40 AM EDT [facility] INR 1.8(H) 0.9 - 1.1 10/06/2024 4:40 AM EDT [facility] Comment: RECOMMENDED THERAPEUTIC RANGES USING INR : Stable oral anticoagulant therapy: 2.0 - 3.0 Mechanical prosthetic heart valve: 2.5 - 3.5 Recurrent acute myocardial infarction: 2.5 - 3.5 Plasma 10/06/2024 4:01 AM EDT 10/06/2024 4:11 AM EDT [employer] DO LAB BLOOD ORDERABLES Final Resul t [facility] [address] [place] [address], [facility] * (ABNORMAL) Hepatic Function Panel, AM (10/06/2024 4:01 AM EDT) Total Bilirubin 14.7(H) 0.0 - 1.5 mg/dL 10/06/2024 4:57 AM EDT [facility] Bilirubin, Direct 7.08(H) 0.00 - 0.40 mg/dL 10/06/2024 4:57 AM EDT [facility] AST 60(H) 13 - 39 U/L 10/06/2024 4:57 AM EDT [facility] ALT 31 7 - 52 U/L 10/06/2024 4:57 AM EDT [facility] Alkaline Phosphatase 162(H) 36 - 125 U/L 10/06/2024 4:57 AM EDT [facility] Total Protein 5.3(L) 6.4 - 8.9 g/dL 10/06/2024 4:57 AM EDT [facility] Albumin 3.4(L) 3.5 - 5.7 g/dL 10/06/2024 4:57 AM EDT [facility] Bilirubin, Indirect 7.62(H) 0.00 - 1.10 mg/dL 10/06/2024 4:57 AM EDT [facility] Plasma 10/06/2024 4:01 AM EDT 10/06/2024 4:22 AM EDT [facility] DO LAB BLOOD ORDERABLES Final Resul t [facility] [address] [facility] [place] [address], [facility] * Magnesium (10/06/2024 4:01 AM EDT) Magnesium 1.8 1.5 - 2.5 mg/dL 10/06/2024 4:57 AM EDT [facility] Plasma 10/06/2024 4:01 AM EDT 10/06/2024 4:22 AM EDT us Bisi Hernandez DO LAB BLOOD ORDERABLES Final Resul t [facility] [address] [place] [address], [facility] * (ABNORMAL) Renal Function Panel w/EGFR (10/06/2024 4:01 AM EDT) Sodium 129(L) 133 - 146 mmol/L 10/06/2024 4:57 AM EDT [facility] Potassium 4.7 3.5 - 5.3 mmol/L 10/06/2024 4:57 AM EDT [facility] Chloride 100 98 - 110 mmol/L 10/06/2024 4:57 AM EDT [facility] CO2 16(L) 21 - 33 mmol/L 10/06/2024 4:57 AM EDT [facility] Anion Gap 13 3 - 16 mmol/L 10/06/2024 4:57 AM EDT [facility] BUN 61(H) 7 - 25 mg/dL 10/06/2024 4:57 AM EDT [facility] Creatinine 3.49(H) 0.60 - 1.30 mg/dL 10/06/2024 4:57 AM EDT [facility] Glucose 104(H) 70 - 100 mg/dL 10/06/2024 4:57 AM EDT [facility] Calcium 9.2 8.6 - 10.3 mg/dL 10/06/2024 4:57 AM EDT [facility] Phosphorus 5.3(H) 2.1 - 4.7 mg/dL 10/06/2024 4:57 AM EDT [facility] Albumin 3.4(L) 3.5 - 5.7 g/dL 10/06/2024 4:57 AM EDT [facility] Osmolality, Calculated 286 278 - 305 mOsm/kg 10/06/2024 4:57 AM EDT [facility] EGFR 22 10/06/2024 4:57 AM EDT [facility] Comment:As of [...] DO LAB BLOOD ORDERABLES Final Resul t [facility] [address] * (ABNORMAL) CBC (10/06/2024 4:01 AM EDT) WBC 7.6 3.8 - 10.8 10E3/uL 10/06/2024 5:16 AM EDT [facility] RBC 2.77(L) 4.20 - 5.80 10E6/uL 10/06/2024 5:16 AM EDT [facility] Hemoglobin 10.1(L) 13.2 - 17.1 g/dL 10/06/2024 5:16 AM EDT [facility] Hematocrit 28.4(L) 38.5 - 50.0 % 10/06/2024 5:16 AM EDT [facility] MCV 102.4(H) 80.0 - 100.0 fL 10/06/2024 5:16 AM EDT [facility] MCH 36.4(H) 27.0 - 33.0 pg 10/06/2024 5:16 AM EDT [facility] MCHC 35.5 32.0 - 36.0 g/dL 10/06/2024 5:16 AM EDT [facility] RDW 18.0(H) 11.0 - 15.0 % 10/06/2024 5:16 AM EDT [facility] Platelets 53(L) 140 - 400 10E3/uL 10/06/2024 5:16 AM EDT [facility] Comment:Specimen checked for clots. None detected. MPV 8.4 7.5 - 11.5 fL 10/06/2024 5:16 AM EDT [facility] Whole Blood 10/06/2024 4:01 AM EDT 10/06/2024 4:11 AM EDT [facility] BLOOD ORDERABLES Final Resul t Performing Organization Address [facility] Co de Phone Number [facility] [address] [place] [address]. [address] * Hepatitis C Antibody (10/06/2024 4:01 AM EDT) HCV Ab Nonreactive Nonreactive 10/06/2024 5:12 AM EDT [facility] Comment:Health Department no tified in accordance with reportable infectious disease guidelines. Serum 10/06/2024 4:01 AM EDT 10/06/2024 4:11 AM EDT Narrative [facility] - 10/06/2024 5:12 AM EDT Antibodies to HCV not detected; does not exclude the possibility of exposure to HCV. [facility] BLOOD ORDERABLES Final Resul t Performing Organization Address City/[facility]/ZIP Co de Phone Number [facility] [address] [facility]. [address] * (ABNORMAL) Hepatitis B Surface Antibody, Quantitati (10/06/2024 4:01 AM EDT) Hep B S Ab Reactive( A) Nonreactive 10/06/2024 5:16 AM EDT [facility] HBSAB NUMBER 11.50(H) 0.00 - 7.99 mIU/mL 10/06/2024 5:16 AM EDT [facility] Serum 10/06/2024 4:01 AM EDT 10/06/2024 4:11 AM EDT [facility] - 10/06/2024 5:16 AM EDT Individual is considered immune to HBV infection. [facility] BLOOD ORDERABLES Final Resul t Performing Organization Address City/[facility] Co de Phone Number [facility] [address] * Hepatitis B surface antigen (10/06/2024 4:01 AM EDT) Hep B Surface Ag Nonreactive Nonreactive 10/06/2024 5:07 AM EDT [facility] Comment:Health Department no tified in accordance with reportable infectious disease guidelines. Serum 10/06/2024 4:01 AM EDT 10/06/2024 4:11 AM EDT [facility] - 10/06/2024 5:07 AM EDT Specimen is considered negative for HBsAg. [facility] BLOOD ORDERABLES Final Resul t Performing Organization Address [facility] Co de Phone Number [facility] [address] [facility]. [address] * Hepatitis A Antibody Total (10/06/2024 4:01 AM EDT) Anti-HAV Total (IgG + IgM) Nonreactive 10/06/2024 5:08 AM EDT [facility] Serum 10/06/2024 4:01 AM EDT 10/06/2024 4:11 AM EDT [facility] - 10/06/2024 5:08 AM EDT HAV antibodies not detected [facility] BLOOD ORDERABLES Final Resul t [facility] [address] * Hepatitis A IgM (10/06/2024 4:01 AM EDT) Hep A IgM Nonreactive Nonreactive 10/06/2024 5:02 AM EDT [facility] Serum 10/06/2024 4:01 AM EDT 10/06/2024 4:11 AM EDT Narrative [facility] - 10/06/2024 5:02 AM EDT IgM anti-HAV not detected. Does not exclude the possibility of exposure to or infection with HAV. Levels of IgM anti-HAV may be below the cut-off in early infection. [facility] BLOOD ORDERABLES Final Resul t Performing Organization Address City/[facility]/ZIP Co de Phone Number [facility] [address] [facility]. [address] * (ABNORMAL) Salicylate Level (10/06/2024 4:01 AM EDT) Salicylate Lvl <3(L) 10 - 30 mg/dL 10/06/2024 4:58 AM EDT [facility] Serum 10/06/2024 4:01 AM EDT 10/06/2024 4:22 AM EDT [facility] BLOOD ORDERABLES Final Resul t Performing Organization Address [facility] Co de Phone Number [facility] [address] * AFP Tumor Marker (10/06/2024 4:01 AM EDT) AFP-Tumor Marker 2.6 0.0 - 9.0 ng/mL 10/06/2024 4:55 AM EDT [facility] Serum 10/06/2024 4:01 AM EDT 10/06/2024 4:22 AM EDT Narrative [facility] - 10/06/2024 4:55 AM EDT The testing method for AFP is a chemiluminescent immunoassay manufactured by [employer] Concentrations of AFP obtained by different assay methods or kits may vary and cannot be used interchangeably. AFP results cannot be interpreted as absolute evidence of the presence or absence of malignant disease. [facility] BLOOD ORDERABLES Final Resul t [facility] [address] [place] [address], [facility] * Upper Respiratory Viral/Bacterial Panel-MATERNAL CHILD NURSE Only (10/06/2024 3:12 AM EDT) Adenovirus Not Detected Not Detected 10/06/2024 11:38 PM EDT [facility] Coronavirus (229E,HKU1,NL63,OC 43) Not Detected Not Detected 10/06/2024 11:38 PM EDT [facility] SARS-CoV-2 Not Detected Not Detected 10/06/2024 11:38 PM EDT [facility] Human Metapneumovirus Not Detected Not Detected 10/06/2024 11:38 PM EDT [facility] Human Rhinovirus/Enterov irus Not Detected Not Detected 10/06/2024 11:38 PM EDT [facility] Influenza A Not Detected Not Detected 10/06/2024 11:38 PM EDT [facility] Influenza A H1 Not Detected Not Detected 10/06/2024 11:38 PM EDT [facility] Influenza A/H1-2009 Not Detected Not Detected 10/06/2024 11:38 PM EDT [facility] Influenza A H3 Not Detected Not Detected 10/06/2024 11:38 PM EDT [facility] Influenza B Not Detected Not Detected 10/06/2024 11:38 PM EDT [facility] Parainfluenza 1 Not Detected Not Detected 10/06/2024 11:38 PM EDT [facility] Parainfluenza 2 Not Detected Not Detected 10/06/2024 11:38 PM EDT [facility] Parainfluenza 3 Not Detected Not Detected 10/06/2024 11:38 PM EDT [facility] Parainfluenza 4 Not Detected Not Detected 10/06/2024 11:38 PM EDT [facility] Resp. Syncycial Virus A Not Detected Not Detected 10/06/2024 11:38 PM EDT [facility] Resp. Syncycial Virus B Not Detected Not Detected 10/06/2024 11:38 PM EDT [facility] Chlamydia pneumoniae Not Detected Not Detected 10/06/2024 11:38 PM EDT [facility] Mycoplasma pneumoniae Not Detected Not Detected 10/06/2024 11:38 PM EDT [facility] Comment: The Respiratory Viral-Bacterial [...] Test results have been sent to the [facility] in accordance with state requirements. For a fact sheet for healthcare providers, see https://www.fda.gov/media/325160/download. For a fact sheet for patients, see https://www.fda.gov/media/541394/download. Nasopharyngeal Swab NASOPHARYNGEAL SWAB / Unknown 10/06/2024 3:12 AM EDT 10/06/2024 5:41 PM EDT Comment:MATERNAL CHILD NURSE us Bisi Hernandez DO BODY FLUIDS AND STOOLS ORDERABLE S Final Result [facility] [address] * X-ray Portable Chest (10/06/2024 1:16 [...] 10/06/2024 2:33 AM EDT Bisi Hernandez DO [facility] [...] developed and its performance characteristics determined by [facility] in a manner consistent with CLIA requirements. This test has not been cleared or approved by the U.S. Food and Drug Administration. Test Performed by: [place] [address] Male Infertility Specialist: Kathy Ortiz Ph.D.; CLIA# [id number] Whole Blood 10/06/2024 1:04 AM EDT 10/10/2024 3:11 AM EDT [facility] BLOOD ORDERABLES Final Resul t Performing Organization Address City/[facility]/ZIP Co de Phone Number [facility] [address] * (ABNORMAL) Acetaminophen Level (10/06/2024 1:04 AM EDT) Acetaminophen Level <10(L) 10 - 30 ug/mL 10/06/2024 2:08 AM EDT [facility] Serum 10/06/2024 1:04 AM EDT 10/06/2024 1:30 AM EDT [facility] BLOOD ORDERABLES Final Resul t [facility] [address] * Ethanol, Serum (10/06/2024 1:04 AM EDT) Ethanol <10 0 - 10 mg/dL 10/06/2024 2:08 AM EDT [facility] Serum 10/06/2024 1:04 AM EDT 10/06/2024 1:30 AM EDT [facility] BLOOD ORDERABLES Final Resul t [facility] [address] [facility]. [address] * #2 Blood culture-Peripheral site 2 (10/06/2024 1:04 AM EDT) Culture Result No Growth After 5 Days [facility] Blood BLOOD SPECIMEN / Unknown 10/06/2024 1:04 AM EDT 10/06/2024 4:57 AM EDT [facility] - 10/11/2024 5:05 AM EDT Suboptimal volume of blood received. Interpret results with caution. Bisi Hernandez MICROBIOLOGY - GENERAL ORDERABLE S Final Result Performing Organization Address City/[facility]/ZIP Co de Phone Number [facility] [address] [facility]. [address] * #1 Blood culture-Peripheral site 1 (10/06/2024 1:04 AM EDT) Culture Result No Growth After 5 Days [facility] Blood BLOOD SPECIMEN / Unknown 10/06/2024 1:04 AM EDT 10/06/2024 4:57 AM EDT [facility] - 10/11/2024 5:01 AM EDT Suboptimal volume of blood received. Interpret results with caution. Bisi Akana maría DO MICROBIOLOGY - GENERAL ORDERABLE S Final Result [facility] [address] * Ammonia (10/06/2024 1:04 AM EDT) Ammonia 77 27 - 90 ug/dL 10/06/2024 2:00 AM EDT [facility] Plasma 10/06/2024 1:04 AM EDT 10/06/2024 1:30 AM EDT [facility] BLOOD ORDERABLES Final Resul t Performing Organization Address City/[facility] Co de Phone Number [facility] [address] * Thyroid Function [place] (10/06/2024 1:04 AM EDT) TSH 0.84 0.45 - 4.12 uIU/mL 10/06/2024 2:20 AM EDT [facility] Serum 10/06/2024 1:04 AM EDT 10/06/2024 1:39 AM EDT [facility] BLOOD ORDERABLES Final Resul t Performing Organization Address City/[facility] Co de Phone Number [facility] [address] * (ABNORMAL) Protime-INR (10/06/2024 1:04 AM EDT) Protime 22.8(H) 12.1 - 15.1 seconds 10/06/2024 1:48 AM EDT [facility] INR 1.9(H) 0.9 - 1.1 10/06/2024 1:48 AM EDT [facility] Comment: RECOMMENDED THERAPEUTIC RANGES USING INR : Stable oral anticoagulant therapy: 2.0 - 3.0 Mechanical prosthetic heart valve: 2.5 - 3.5 Recurrent acute myocardial infarction: 2.5 - 3.5 Plasma 10/06/2024 1:04 AM EDT 10/06/2024 1:30 AM EDT us Acturis DO LAB BLOOD ORDERABLES Final Resul t [facility] [address] [facility]. [address] * Lactic Acid, STAT (10/06/2024 1:04 AM EDT) Lactate 1.2 0.5 - 2.2 mmol/L 10/06/2024 1:59 AM EDT [facility] Plasma 10/06/2024 1:04 AM EDT 10/06/2024 1:30 AM EDT us [email or web address] DO LAB BLOOD ORDERABLES Final Resul t Performing Organization Address [facility] Co de Phone Number [facility] [address] * (ABNORMAL) CBC, STAT (10/06/2024 1:04 AM EDT) WBC 7.9 3.8 - 10.8 10E3/uL 10/06/2024 2:36 AM EDT [facility] RBC 2.76(L) 4.20 - 5.80 10E6/uL 10/06/2024 2:36 AM EDT [facility] Hemoglobin 9.9(L) 13.2 - 17.1 g/dL 10/06/2024 2:36 AM EDT [facility] Hematocrit 28.0(L) 38.5 - 50.0 % 10/06/2024 2:36 AM EDT [facility] MCV 101.5(H) 80.0 - 100.0 fL 10/06/2024 2:36 AM EDT [facility] MCH 35.7(H) 27.0 - 33.0 pg 10/06/2024 2:36 AM EDT [facility] MCHC 35.2 32.0 - 36.0 g/dL 10/06/2024 2:36 AM EDT [facility] RDW 17.9(H) 11.0 - 15.0 % 10/06/2024 2:36 AM EDT [facility] Platelets 58(L) 140 - 400 10E3/uL 10/06/2024 2:36 AM EDT [facility] Comment: Specimen checked for clots. None detected. Slide Reviewed for PLT Clumps. None Seen. MPV 8.2 7.5 - 11.5 fL 10/06/2024 2:36 AM EDT [facility] Whole Blood 10/06/2024 1:04 AM EDT 10/06/2024 1:31 AM EDT us Bisi Hernandez DO LAB BLOOD ORDERABLES Final Resul t [facility] [address] [place] [address], [facility] * (ABNORMAL) Comprehensive Metabolic Panel (10/06/2024 1:04 AM EDT) Sodium 127(L) 133 - 146 mmol/L 10/06/2024 2:05 AM EDT [facility] Potassium 4.5 3.5 - 5.3 mmol/L 10/06/2024 2:05 AM EDT [facility] Chloride 99 98 - 110 mmol/L 10/06/2024 2:05 AM EDT [facility] CO2 18(L) 21 - 33 mmol/L 10/06/2024 2:05 AM EDT [facility] Anion Gap 10 3 - 16 mmol/L 10/06/2024 2:05 AM EDT [facility] BUN 59(H) 7 - 25 mg/dL 10/06/2024 2:05 AM EDT [facility] Creatinine 3.54(H) 0.60 - 1.30 mg/dL 10/06/2024 2:05 AM EDT [facility] Glucose 116(H) 70 - 100 mg/dL 10/06/2024 2:05 AM EDT [facility] Calcium 9.0 8.6 - 10.3 mg/dL 10/06/2024 2:05 AM EDT [facility] Total Bilirubin 14.8(H) 0.0 - 1.5 mg/dL 10/06/2024 2:05 AM EDT [facility] AST 61(H) 13 - 39 U/L 10/06/2024 2:05 AM EDT [facility] ALT 33 7 - 52 U/L 10/06/2024 2:05 AM EDT [facility] Alkaline Phosphatase 174(H) 36 - 125 U/L 10/06/2024 2:05 AM EDT [facility] Total Protein 5.2(L) 6.4 - 8.9 g/dL 10/06/2024 2:05 AM EDT [facility] Albumin 3.3(L) 3.5 - 5.7 g/dL 10/06/2024 2:05 AM EDT [facility] Osmolality, Calculated 282 278 - 305 mOsm/kg 10/06/2024 2:05 AM EDT [facility] EGFR 21 10/06/2024 2:05 AM EDT [facility] Comment:As of [...] DO LAB BLOOD ORDERABLES Final Resul t [facility] [address] [place] [address], [facility] documented in this encounter Visit Diagnoses [...] Oral, 3 times daily, First dose on [facility] 10/09/24 at 1300 Given 10/17/2024 8:49 [...] is non-communicative (CPOT 3-5), Starting on [facility] 10/07/24 at 1205 oxyCODONE (ROXICODONE) immediate release tablet 5 mg 5 mg, Oral, Every 6 hours PRN, severe pain (NRS 7-10) or if patient is non-communicative (CPOT 6-8), Starting on [facility] 10/07/24 at 1205 Given 10/17/2024 8:48 AM [...] levothyroxine administration. 0820 (Given - Provider: Anu oWlff RN) 0636 (Given - Provider: Chelsy Bush [...] Anu Wolff RN) 0834 (Given - Provider: nAu Wolff RN) 0849 (Given - Provider: Suzette [...] is non-communicative (CPOT 6-8), Starting on [facility] 10/07/24 at 1205 2108 (Given - Provider: [...] documented as of this encounter Care Teams Hvac Instructor Relationship Specialty Start Date End Date Enedina Mcguire NP [address] [place] [address] PCP - General Internal Medicine 10/05/24 documented as of this encounter
--- OUTSIDE RECORDS SUMMARY | 2024-10-10 12:01 | XMS_ITS | Encounter Summary ---
Author Organization [facility] Address [address] [place] [address] Care Team Providers Care Railway Track Worker Name Role Phone Enedina Mcguire NP Primary Care Provider [phone] Source Comments This information has been disclosed [...] release of HIV test results or diagnoses. [id number] Reason for Visit * Auth/Cert (Routine) Specialty Diagnoses / Procedures Referred By Shane hernadez Referred To Contact General Internal Medicine Diagnoses [facility] [address] [place] [address] Phone: tel: Referral ID Status Reason Start Date Expiration Date Visits Re quested Visits Authorized [id number] 1 1 Encounter Details Date Type Department Care Team (Late st Contact Info) Description 10/10/2024 12:01 PM EDT Anesthesia Event [facility] ENDOSCOPY [address] [place] [address] Cady Bhat MD [address] [place] [address] Bob Leggett MD [address] [facility] [address] [place] [address] Anesthesia Record Procedure Summary Procedure Name Responsible Anesthesiologist Anesthesia Start Time Anesthesia Stop Time ALEXIS Bhat MD 10/10/24 1201 10/10 1232 Events Date Time Event Comment 10/10/2024 1201 An Start 1201 An Start Data 1206 An Induction 1206 Time Out 1217 An Emergence 1225 an stop data 1232 An Stop Meds Name Total lidocaine (XYLOCAINE) 20 mg/mL (2%) inje ction 60 mg propofol (DIPRIVAN) 10 mg/ml IV injectio n (BOLUS) 300 mg propofol (DIPRIVAN) 10 mg/ml infusion - 20ML VIAL SIZE 185.23 mg phenylephrine (HUNG-SYNEPHRINE) injection 200 mcg ephedrine injection 50 mg/mL 15 mg 0.9% NaCl infusion 450 mL * Agents Name N2O O2 N2O Air * Blood No blood administrations on file. Lines, Drains, and Airways Type Details Placement Removal Wound 08/13/24; 0005; #1; Moisture associated skin damage; Groin; Proximal, Right, Upper, Dorsal; Redness in fold 08/13/24 0005 by Izzy Donovan, ЮЛИЯ Anesthesia Airway Device 10/10/24; 1139; Nasal Cannula Salter 10/10/24 1139 by NAHED Puri Peripheral IV 20 G; Left; Antecubital 10/06/24 0242 by 10/17/24 0959 by Zuleima Cheney RN Peripheral IV 10/08/24; 1425; 18 G ; Left; Forearm; Chlorhexidine; None; Ultrasound Guided; Tolerated well 10/08/24 1425 by Olivia Latham RN 10/17/24 0959 by Zuleima Cheney RN documented in this encounter Social History Tobacco [...] Recorded In the past 12 months has [email or web address], [employer], or [employer] threatened to shut off services in your [...] as of this encounter Functional Status * Audit-C Score [...] Paz RN documented as of this encounter Progress Notes * Cady Bhat MD - 10/10/2024 12:58 PM EDT Anesthesia Post Note Patient: Julien Anderson Procedure(s) Performed: Procedure(s): EGD Anesthesia type: MAC Patient location: Endoscopy PACU Airway: Patent Post pain: Adequate analgesia Nausea / Vomiting: Absent Post-operative Hydration Status: Adequate Post assessment: no apparent anesthetic complications and tolerated procedure well Last Vitals: Vitals: 10/10/24 0850 10/10/24 1030 10/10/24 1230 10/10/24 1245 BP: 102/55 114/58 94/41 105/51 BP Location: Right upper arm Patient Position: Lying BP Cuff Size: Regular Pulse: 93 94 93 91 Resp: 16 18 16 16 Temp: 98.1 ??F (36.7 ??C) 97.6 ??F (36.4 ??C) TempSrc: Oral Axillary SpO2: 99% 100% 100% 100% Weight: Last Temperature: 97.6 ??F (36.4 ??C) (10/10/2024 12:30 PM) Post vital signs: stable Level of consciousness: awake and alert Complications: There were no known notable events for this encounter. documented in this encounter H&P Notes * Cady Bhat MD - 10/10/2024 10:15 AM EDT [facility] DEPARTMENT OF ANESTHESIOLOGY PRE-PROCEDURAL EVALUATION Julien Anderson is a 39 y.o. year old male presenting for: Procedure(s): EGD Surgeon: Lino Soto MD Chief Complaint AMS Review of Systems Anesthesia Evaluation Cardiovascular: Hypertension is. Neuro/Muscoloskeletal/Psych: Pulmonary: GI/Hepatic/Renal: (+) liver disease and end stage liver disease. GERD is. Chronic renal disease. Endo/Other: Past Medical History Past Medical History: Diagnosis [...] Other Topics Concern Not on file Social Drivers of Health Financial Resource Strain: Low Risk (07/09/2024) Received from [facility] Overall Financial Resource Strain (CARDIA) [...] No Physical Activity: Unknown (07/14/2024) Received from [facility] Exercise Vital Sign Days of Exercise per Week: Patient unable to answer Minutes of Exercise per Session: Not on file Stress: Patient Unable To Answer (07/14/2024) Received from [facility] [employer] [place] of Occupational Health - Occupational Stress Questionnaire Feeling of Stress : Patient unable to answer Social Connections: Patient Unable To Answer (07/14/2024) Received from [facility] Social Connection and Isolation Panel [NHANES] Frequency of Communication with Friends and Family: Patient unable to answer Frequency of Social Gatherings with Friends and Family: Patient unable to answer Attends Gnosticism Services: Patient unable to answer Active Member of Clubs or Organizations: Patient unable to answer Attends Club or Organization Meetings: Patient unable to answer Marital Status: Patient unable to answer Intimate Partner Violence: Not At Risk (10/06/2024) Humiliation, Afraid, Rape, and Kick questionnaire Fear of Current or Ex-Partner: No Emotionally Abused: No Physically Abused: No Sexually Abused: No Medications Allergies: Allergies[1] Home Meds: Home Medications [...] mouth daily. Yes Past Week Inpatient Meds: Scheduled: cefTRIAXone (ROCEPHIN) IVPB 2 [...] sulfate 220 mg Oral Daily 0900 Continuous: PRN: metoprolol tartrate, oxyCODONE OR oxyCODONE Vital Signs Wt Readings from Last 3 Encounters: 10/10/24 (!) 263 lb 8 oz (119.5 kg) 09/05/24 (!) 262 lb 9.6 oz (119.1 kg) 09/02/24 (!) 258 lb (117 kg) Ht Readings from Last 3 Encounters: 09/05/24 6' 4 (1.93 m) 09/02/24 6' 4 (1.93 m) 08/13/24 6' 4 (1.93 m) Temp Readings from Last 3 Encounters: 10/10/24 98 ??F (36.7 ??C) (Oral) 09/09/24 97.9 ??F (36.6 ??C) (Oral) 08/19/24 97.4 ??F (36.3 ??C) (Oral) BP Readings from Last 3 Encounters: 10/10/24 102/55 09/09/24 126/69 09/02/24 103/60 Pulse Readings from Last 3 Encounters: 10/10/24 93 09/09/24 98 09/02/24 95 SpO2 Readings from Last 3 Encounters: 10/10/24 99% 09/09/24 100% 09/02/24 100% Physical Exam Airway: Mallampati: II Mouth Opening: >2 FB TM distance: > = 3 FB Dental: Pulmonary: Breathing: unlabored Cardiovascular: Rhythm: regular Rate: normal Neuro/Musculoskeletal/Psych: Abdominal: Current OB Status: Other Findings: Laboratory Data Lab Results Component Value Date WBC 5.1 10/10/2024 HGB 7.3 (L) 10/10/2024 HCT 20.6 (L) 10/10/2024 MCV 101.2 (H) 10/10/2024 PLT 39 (L) 10/10/2024 No results found for: ABORH Lab Results Component Value Date GLUCOSE 113 (H) 10/10/2024 BUN 53 (H) 10/10/2024 CO2 17 (L) 10/10/2024 CREATININE 2.85 (H) 10/10/2024 K 3.6 10/10/2024 NA 135 10/10/2024 CL 108 10/10/2024 CALCIUM 9.0 10/10/2024 ALBUMIN 3.3 (L) 10/10/2024 ALBUMIN 3.3 (L) 10/10/2024 PROT 4.6 (L) 10/10/2024 ALKPHOS 118 10/10/2024 ALT 22 10/10/2024 AST 40 (H) 10/10/2024 BILITOT 8.6 (H) 10/10/2024 Lab Results Component Value Date INR 2.1 (H) 10/10/2024 No results found for: PREGTESTUR , PREGSERUM , HCG , HCGQUANT Anesthesia Plan ASA 4 Current non-smoker Anesthesia Type: MAC. PONV Risk Factors: current non-smoker, plan for postoperative opioid use. Induction: Intravenous induction. (Liver transplant workup) Anesthetic plan and risks discussed with patient. Plan, alternatives, and risks of anesthesia, including , have been explained to and discussed with the patient/legal guardian. By my assessment, the patient/legal guardian understands and agrees. Scenario presented in detail. Questions answered. Plan discussed with PORT CRANE OPERATOR. [1] Allergies Allergen Reactions Adhesive Itching and Rash Tegaderm adhesive on Ivs, pt states its tolerable Duloxetine Other (See Comments) Became Manic documented in this encounter Plan of Treatment Not on file documented as of this encounter Visit Diagnoses * Transfer of Care - NAHED Puri - 10/10/2024 12:32 PM EDT Anesthesia Transfer of Care Note Patient: Julien Anderson Procedure(s) Performed: Procedure(s): EGD Patient location: Endoscopy PACU Anesthesia type: MAC Airway Device on Arrival to PACU/ICU: Room Air IV Access: Peripheral Monitors Recommended to be Used During PACU/ICU: Standard Monitors Outstanding Issues to Address: None Level of Consciousness: awake, alert , and oriented Post vital signs: Vitals: 10/10/24 1030 BP: 100/50 Pulse: 94 Resp: 18 Temp: 97.1 SpO2: 100% Complications: No notable events documented. Date 10/09/24 07 - 10/10/24 0659 10/10/24 07 - 10/11/24 0659 Shift 1262-5929 6479-6717 3869-7866 24 Hour Total 6719-9812 0803-8440 7917-9569 24 Hour Total INTAKE P.O. 210 210 P.O. 210 210 I.V.(mL/kg) 450(3.8) 450(3.8) Volume (mL) (sodium chloride 0.9 % IV infusion) 450 450 Shift Total(mL/kg) 660(5.5) 660(5.5) OUTPUT Urine(mL/kg/hr) Urine Occurrence 3 x 2 x 1 x 6 x Stool Stool Occurrence 3 x 1 x 4 x 1 x 1 x Shift Total(mL/kg) Weight (kg) 118.8 118.8 119.5 119.5 119.5 119.5 119.5 119.5 documented in this encounter Administered Medications Inactive Administered Medications - up to 3 most recent administrations Medication Order MAR Action Action Date Dose Rate Site ePHEDrine sulfate IV solution Intravenous, PRN - One Step Medication Only, Starting on Sun10/10/24 at 1224, Anesthesia Intra-op Given 10/10/2024 12:24 PM EDT 15 mg lidocaine (PF) 20 mg/mL (2 %) Soln Intravenous, PRN - One Step Medication Only, Starting on Sun10/10/24 at 1206, Anesthesia Intra-op Given 10/10/2024 12:06 PM EDT 60 mg phenylephrine (HUNG-SYNEPHRINE) injection Intravenous, PRN - One Step Medication Only, Starting on Sun10/10/24 at 1213, Anesthesia Intra-op Given 10/10/2024 12:16 PM EDT 100 mcg Given 10/10/2024 12:13 PM EDT 100 mcg propofol 10 mg/ml (DIPRIVAN) injection Intravenous, PRN - One Step Medication Only, Starting on Sun10/10/24 at 1206, Anesthesia Intra-op Given 10/10/2024 12:14 PM EDT 50 mg Given 10/10/2024 12:08 PM EDT 50 mg Given 10/10/2024 12:07 PM EDT 100 mg propofol 10 mg/ml, 20mL vial (DIPRIVAN) INFUSION Intravenous, Continuous - One Step Medications Only, Starting on Sun10/10/24 at 1206, Anesthesia Intra-op Rate/Dose Change 10/10/2024 12:08 PM EDT 150 mcg/kg/min 107.55 mL/hr New Bag 10/10/2024 12:06 PM EDT 100 mcg/kg/min 71.7 mL/ hr sodium chloride 0.9 % IV infusion Intravenous, Continuous - One Step Medications Only, Starting on Sun10/10/24 at 1201, Anesthesia Intra-op New Bag 10/10/2024 12:01 PM EDT documented in this encounter Additional Health Concerns Infection Onset Date Last Indicated Resolved Time C. difficile 09/09/2024 09/09/2024 10/27/2024 8:30 AM EDT Assessment Noted Time PHQ-9 Depression Total Score: 17 025 11:00 AM EDT documented as of this encounter Care Teams Railway Track Worker Relationship Specialty [place] [address] [place], [place] [id number] PCP - General Internal Medicine 10/05/24 documented as of this encounter
--- OUTSIDE RECORDS SUMMARY | 2024-10-14 08:42 | XMS_ITS | Encounter Summary ---
Author Organization [facility] Address [facility] [place] [address] Care Team Providers Care Superintendent Gas Distribution Name Role Phone Enedina Mcguire NP Primary Care Provider [phone] Source Comments This information has been disclosed [...] release of HIV test results or diagnoses. [id number] Health Reason for Visit * Auth/Cert (Routine) Specialty Diagnoses / Procedures Referred By Shane hernadez Referred To Contact General Internal Medicine Diagnoses AMS [facility] [address] [place] [address] Phone: tel: Referral ID Status Reason Start Date Expiration Date Visits Re quested Visits Authorized [id number] 1 1 Encounter Details Date Type Department Care Team (Late st Contact Info) Description 10/14/2024 8:42 AM EDT - 10/14/2024 9:27 AM EDT Surgery [facility] Cardiac Software Development Intern [address] [place] [address] Irving Matta MD [address] [facility] [place] [address] Left Heart Cath Surgery Details [...] the past 12 months has th e [employer], gas, oil, or water [employer] threatened to shut off services in your [...] Kandy Fuentes - 10/17/2024 10:29 AM EDT [facility] Care Management Discharge Summary Patient name: [...] Home post discharge: Not Applicable Kandy [facility] [phone] * William Blount MD - 10/17/2024 8:50 AM EDT [facility] Inpatient Discharge Summary Patient: Julien Gilbert Age: 39 y.o. CSN: [id number] Date of Admission: 10/05/2024 Date of Discharge: [...] Case IDs Date Procedure Surgeon Location Status [id number] 10/10/24 EGD Lino Soto MD ENDOSCOPY Comp [id number] 10/14/24 Left Heart Cath Irving Matta MD [...] at 10/08/2024 1:12 PM EDT US Duplex Pvl-Dcu-Curnjny Comp Final Result IMPRESSION: ABDOMEN 1. Cirrhotic [...] effect or hemorrhage. Report Verified by: Sher Abarms MD at 10/06/2024 4:50 PM EDT X-ray [...] 90 tablet Refills: 0 naloxone 4 mg/actuation [place] Commonly known as: NARCAN Apply 1 spray [...] Your Medications These medications were sent to [facility] [address] Hours: Sunday - Sunday: 8:00AM - 6:00PM FLUoxetine 20 MG capsule lactulose 10 gram/15 mL solution loratadine 10 mg tablet methocarbamoL 500 MG tablet midodrine 10 MG tablet naloxone 4 mg/actuation [place] oxyCODONE 5 MG immediate release tablet Discharge [...] Select Supplement: Boost-1 kcal/ml supplement ([facility] only) As listed above, low [...] AM EDT 10/17/2024 naloxone (NARCAN) 4 mg/actuation [place] Apply 1 spray in one nostril if [...] 10:23 AM EDT [facility] PROGRESS NOTE Name: Julien Gilbert CSN: [id number] Consulted by: Chelsy Lerner MD Reason for [...] Yes Past Week naloxone (NARCAN) 4 mg/actuation [place] Apply 1 spray in one nostril if [...] nucleated cells, <2000 RBCs 10% Polynuclear, 90% [place]kin nuc. There were initial reports of gram [...] of chemical dependency treatment as outpatient. - [facility] with no obstructive coronary disease - Psych eval for PTSD With recommendation of sertraline - Given his renal dysfunction, will plan to list for [facility] when he qualifies on 10/22/2024. Labs next week - Plan for d/c today Bobby Sidhu MD Transplant Medical Claims Manager Please see the body of the [...] remains <30 until October 22. Waiting for [facility] today. ASSESSMENT NADIYA on CKD, last [...] Staff. Jeremiah Gamino PGY4 Nephrology. Pager no. [phone] Chief Complaint No chief complaint on file. [...] hyperlipidemia (07/26/2024), Renal cell carcinoma ([facility]), Thrombocytopenia ([facility]), and Thyroid disease. he has [...] at 10/08/2024 1:12 PM EDT US Duplex Zgw-Qpw-Wemxidw Comp Final Result IMPRESSION: ABDOMEN 1. Cirrhotic [...] no head imaging has been performed at [facility]. -CT Head w/o contrast -Imaging [...] Select Supplement: Boost-1 kcal/ml supplement ([facility] only) Code Status: Full Code [...] another specialty or practice, other licensed professional (PT/OT/VIRTUAL RECRUITER/RT), or a non-medical community professional: Hepatology, Interventional [...] due to positioning during LHC on 10/14. 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 Precipitant of his HE likely SBP. Diagnostic paracentesis at OSH reportedly showed 61 nucleated cells, <2000 RBCs 10% Polynuclear, 90% Lumpkin nuc. There were initial reports of gram [...] Based on CBW of 119.5 kg Kcals/day: 2652-4114 (18-21 kcals/kg) Protein g/day: 119-143 (1-1.2 g/kg) [...] Kumar RD, LD Clinical Dietitian Contact via Kii * Jerad Hughes MD - 10/16/2024 11:03 AM EDT [facility] PROGRESS NOTE Name: Julien Gilbert CSN: [id number] Consulted by: Chelsy Lerner MD Reason for [...] nucleated cells, <2000 RBCs 10% Polynuclear, 90% L[place]kin nuc. There were initial reports of gram [...] of chemical dependency treatment as outpatient. - [facility] with no obstructive coronary disease - Psych eval for PTSD With recommendation of sertraline - Given his renal dysfunction, will plan to list for [facility] when he qualifies on 10/22/2024. - Will follow Bobby Sidhu MD Transplant Medical Claims Manager Please see the body of the [...] remains <30 until October 22. Waiting for [facility] today. ASSESSMENT NADIYA on CKD, last [...] COMMENT on 10/08/2024 Iron%- Iron replete PLAN -[facility] yesterday- patient remains at risk of contrast related injury on top of exisiting NADIYA for 24-48 hrs after contrast load. -He is volume overloaded -patient needs to follow up closely with nephrology after discharge Thank you for allowing us to participate in this patient's care. Discussed with Consult Staff. Jeremiah Gamino PGY4 Nephrology. Pager no. [phone] Chief Complaint No chief complaint on file. [...] at 10/08/2024 1:12 PM EDT US Duplex Mpt-Mqi-Axjrkfc Comp Final Result IMPRESSION: ABDOMEN 1. Cirrhotic [...] not tolerate Stress ECHO on 10/09 - [facility] today -Per GI recs, started on [...] no head imaging has been performed at [facility]. -CT Head w/o contrast -Imaging [...] Select Supplement: Boost-1 kcal/ml supplement ([facility] only) Code Status: Full Code [...] another specialty or practice, other licensed professional (PT/OT/VIRTUAL RECRUITER/RT), or a non-medical community professional: Hepatology, Interventional [...] due to positioning during LHC on 10/14. Gilbert the worst in CVR, but has improved [...] 10:15 AM EDT [facility] PROGRESS NOTE Name: Julien Gilbert CSN: [id number] Consulted by: Chelsy Lerner MD Reason for [...] nucleated cells, <2000 RBCs 10% Polynuclear, 90% Lumpkin nuc. There were initial reports of gram [...] of chemical dependency treatment as outpatient. - [facility] yesterday with no obstructive coronary disease - Psych eval for PTSD and medical management - Given his renal dysfunction, will plan to list for [facility] when he qualifies on 10/22/2024. - Will follow Bobby Sidhu MD Transplant Medical Claims Manager Please see the body of the [...] Quan MD - 10/14/2024 2:34 PM EDT [facility] Department of Cardiovascular Health and [...] remains <30 until October 22. Waiting for [facility] today. ASSESSMENT NADIYA on CKD, last discharge creatinine 2.4 Baseline Creatinine 1.2-1.3, HRS- NADIYA as no response to holding lasix and albumin UA bland Urine lytes <10/< 15/ 50 Holding lasix give [facility] today Renal Function: Recent Labs 10/14/24 [...] Staff. Jeremiah Gamino PGY4 Nephrology. Pager no. [phone] Chief Complaint No chief complaint on file. [...] kidney injury superimposed on CKD ([facility]). No acute events overnight. Pt [...] at 10/08/2024 1:12 PM EDT US Duplex Gul-Kpq-Ojickjs Comp Final Result IMPRESSION: ABDOMEN 1. Cirrhotic [...] not tolerate Stress ECHO on 10/09 - [facility] today -Per GI recs, started on [...] no head imaging has been performed at [facility]. -CT Head w/o contrast -Imaging [...] never required dialysis. Patient is going for [facility] today and will receive contrast, okay [...] Select Supplement: Boost-1 kcal/ml supplement ([facility] only) Code Status: Full Code [...] another specialty or practice, other licensed professional (PT/OT/VIRTUAL RECRUITER/RT), or a non-medical community professional: Hepatology, Interventional [...] 7:42 AM EDT [facility] PROGRESS NOTE Name: Julien Gilbert CSN: [id number] Consulted by: Chelsy Lerner MD Reason for [...] nucleated cells, <2000 RBCs 10% Polynuclear, 90% Lumpkin nuc. There were initial reports of gram [...] eval ongoing. Transplant work up ongoing - [facility] today - Transplant nephrology following for [...] - Will follow Bobby Sidhu MD Transplant Medical Claims Manager Please see the body of the [...] Staff. Jeremiah Gamino PGY4 Nephrology. Pager no. [phone] Chief Complaint No chief complaint on file. [...] 12:33 PM EDT [facility] PROGRESS NOTE Name: Julien Gilbert CSN: [id number] Consulted by: Fouzia Rene MD Reason for [...] nucleated cells, <2000 RBCs 10% Polynuclear, 90% Lumpkin nuc. There were initial reports of gram [...] eval ongoing. Transplant work up ongoing - [facility] today - Transplant nephrology following for [...] - Will follow Bobby Sidhu MD Transplant Medical Claims Manager Please see the body of the [...] has been sober since late June 2024. Julein was open that he knows what will [...] Fabian, RD - 10/13/2024 10:49 AM EDT [facility] Medical Nutrition Therapy Reason(s) for [...] Select Supplement: Boost-1 kcal/ml supplement ([facility] only) Pertinent Information: Julien Gilbert is a 39 y.o. Male admitted for Acute kidney injury superimposedon CKD ([facility]) Pt noted to have waxing [...] kg) Body mass index is 32.07 kg/m??. [place] Body Weight: 202 lbs (91.8 kg) +/- 10% Weight History: Wt Readings from Last 10 Encounters: 10/10/24 (!) 263 lb 8 oz (119.5 kg) 09/05/24 (!) 262 lb 9.6 oz (119.1 kg) 09/02/24 (!) 258 lb (117 kg) 08/17/24 (!) 242 lb 11.2 oz (110.1 kg) 07/28/24 (!) 245 lb (111.1 kg) Estimated Nutrition Needs: Based on CBW of 119.5 kg Kcals/day: 0345-1458 (18-21 kcals/kg) Protein g/day: 119-143 (1-1-2 g/kg) [...] Dietitian - Solid Organ Transplant Contact via [employer] Chat * Eileen Schroeder MD, PhD - 10/13/2024 8:19 AM EDT Department of Internal Medicine Daily Progress Note Chief Complaint / Reason for Follow-Up Julien Gilbert is a 39 y.o. male on hospital day 8. The principal reason for today's follow up visit is Acute kidney injury superimposed on CKD ([facility]). NAEON Pt felt well this [...] at 10/08/2024 1:12 PM EDT US Duplex Ker-Qlb-Bkkbouw Comp Final Result IMPRESSION: ABDOMEN 1. Cirrhotic [...] no head imaging has been performed at [facility]. -CT Head w/o contrast -Imaging [...] Select Supplement: Boost-1 kcal/ml supplement ([facility] only) Code Status: Full Code [...] reviewed the documentation by the medical team assembler and agree as documented. Any additions or [...] was non-diagnostic due to hypotension. Plan for [facility] today, but now moved to tomorrow. [...] another specialty or practice, other licensed professional (PT/OT/VIRTUAL RECRUITER/RT), or a non-medical community professional: Nephrology, Hepatology [...] at 10/08/2024 1:12 PM EDT US Duplex Ugs-Pbk-Zixfxzr Comp Final Result IMPRESSION: ABDOMEN 1. Cirrhotic [...] no head imaging has been performed at [facility]. -CT Head w/o contrast -Imaging [...] Select Supplement: Boost-1 kcal/ml supplement ([facility] only) Code Status: Full Code [...] reviewed the documentation by the medical team assembler and agree as documented. Any additions or clarifications are listed below. Daily plan was discussed with patient at bedside and questions addressed. Patient ID: Julien Gilbert is a 39 y.o. male currently admitted for Acute kidney injury superimposed on CKD ([facility]) Supplemental History/ ROS: No acute [...] kidney injury superimposed on CKD ([facility]) Active Problems: NADIYA (acute kidney injury) on CKD ([facility]): Hepatorenal syndrome. Appreciate nephrology consult. S/p albumin X3. baseline creatinine presumed to be around 2.5. Creatinine improved from its peak and may be now fluctuating around a new baseline. We will continue to monitor. Spontaneous Bacterial Peritonitis ([facility]): He remains afebrile and vital [...] lactulose and rifaximin Decompensated cirrhosis ([facility]): Appreciate hepatology consult. He has [...] another specialty or practice, other licensed professional (PT/OT/VIRTUAL RECRUITER/RT), or a non-medical community professional: Nephrology, Hepatology [...] tid. cardiac workup pre txp. pLan for [facility] Sunday Liver transplant workup per GI/ [...] 706.9 (H) 10/08/2024 No results found for: [id number] , FOLATE Lab Results Component Value Date [...] CRUR No results found for: MICROALBUR , [id number] In addition to the above an extensive [...] 4.6 10/12/2024 Lab Results Component Value Date [id number] 7.1 (L) 10/08/2024 PLAN Monitor renal panel [...] AM Colten Huertas MD, KISHOR LIN, CATHYF high school science teacher Div. of Nephrology [facility] E-mail: [email or web address] This note was completely [...] Rene MD Interval hx No issues. Pending [facility]. Assessment: Renal Function: Cr: 2.77 Bun: [...] 706.9 (H) 10/08/2024 No results found for: ODDRJESH10 , FOLATE Lab Results Component Value Date [...] CRUR No results found for: MICROALBUR , [id number] In addition to the above an extensive [...] 3.5 10/11/2024 Lab Results Component Value Date RQGP95V 7.1 (L) 10/08/2024 PLAN Monitor renal panel [...] AM Colten Huertas MD, KISHOR LIN FNKF high school science teacher Div. of Nephrology [facility] E-mail: [email or web address] This note was completely [...] kidney injury superimposed on CKD ([facility]). NAEON Pt felt much better [...] at 10/08/2024 1:12 PM EDT US Duplex Csx-Gxl-Rncqsiu Comp Final Result IMPRESSION: ABDOMEN 1. Cirrhotic [...] from outside facility. Will engage with them daily([phone]. Ask to speak to a tech) about [...] no head imaging has been performed at [facility]. -CT Head w/o contrast -Imaging [...] Select Supplement: Boost-1 kcal/ml supplement ([facility] only) Code Status: Full Code [...] reviewed the documentation by the medical team assembler and agree as documented. Any additions or [...] another specialty or practice, other licensed professional (PT/OT/VIRTUAL RECRUITER/RT), or a non-medical community professional: Nephrology, Hepatology, [...] Strictly monitor urine output No Indication for FOOD SERVICE REPRESENTATIVE 3. Not a candidate for terlipressin per [...] Ignacio Queen MD Renal Fellow Pager # [phone] Chief Complaint No chief complaint on file. [...] PHOS -- < > 3.5 3.4 3.3 LJPR72U 7.1* -- -- -- -- < > = values in this interval not displayed. Lab Results Component Value Date IRON 81 10/08/2024 TIBC SEE COMMENT 10/08/2024 FERRITIN 706.9 (H) 10/08/2024 No results found for: [id number] , FOLATE Lab Results Component Value Date [...] CRUR No results found for: MICROALBUR , [id number] In addition to the above an extensive [...] 3.3 10/10/2024 Lab Results Component Value Date ANSY97G 7.1 (L) 10/08/2024 PLAN Continue IV albumin [...] AM Colten Huertas MD, DELIA, KISHOR, FNKF high school science teacher Div. of Nephrology [facility] E-mail: [email or web address] This note was completely [...] pt while pt is at [facility]. * Jodi Ortiz PharmD - 10/10/2024 10:27 AM EDT Clinical Pharmacy Service: Vancomycin Consult Progress Note Patient has been transitioned off of vancomycin therapy per team notes and orders. Pharmacy will sign-off at this time, please do not hesitate to consult again as needs arise. Thank you for involving pharmacy in the care of this patient. Jodi Ortiz PharmD Clinical Microfilm Mounter, Internal Medicine Preferred contact: [employer] Secure Chat Clinical Orjqvgm-Gc-Komn Pager: [phone] October 10, 2024 10:27 AM Laboratory Data [...] 10/07/2024 10:50 PM Giardia Cryptosporidium Antigens Final [id number] 10/07/2024 10:50 PM Ova and Parasite Comprehensive w/ Giardia/Crypto Final [id number] Feces 10/06/2024 1:04 AM #2 Blood culture-Peripheral site 2 Preliminary [id number] Peripheral 10/06/2024 1:04 AM #1 Blood culture-Peripheral site 1 Preliminary [id number] Peripheral Pharmacokinetics Lab Results (Last 7 days) Today 0523 Yesterday 10/08 0536 Vanc Rdm 16.4 11.0 16.0 * Gerri Peterson MD - 10/10/2024 10:09 AM EDT [facility] PROGRESS NOTE Name: Julien Gilbert CSN: [id number] Consulted by: Fouzia Rene MD Reason for [...] nucleated cells, <2000 RBCs 10% Polynuclear, 90% Lumpkin nuc. Per OSH reports, ascitic fluid cultures [...] to achieving target HR. -cardiology consult for [facility] on Sunday - Transplant nephrology following [...] in sodium chloride 0.9 % 250 mL Jzqn5Aqm (Completed) 1,500 mg Once 10/09/2024 10/09/2024 Admin Instructions: Contact pharmacy if there is a question/concern of whether vancomycin should begiven based on serum drug levels. Use Vtoz7Jqj Adapter - Mix Thoroughly Before Administration Route: Intravenous vancomycin (VANCOCIN) 1,500 mg in sodium chloride 0.9 % 250 mL Funu5Ksj 1,500 mg Once 10/10/2024 10/11/2024 Admin Instructions: Contact pharmacy if there is a question/concern of whether vancomycin should begiven based on serum drug levels. Use Jszz1Syn Adapter - Mix Thoroughly Before Administration Route: [...] in sodium chloride 0.9 % 250 mL Xzsp5Lmy 1,500 mg 166.7 mL/hr 10/08/24 1259 New Bag vancomycin (VANCOCIN) 1,000 mg in sodium chloride 0.9 % 250 mL Ptwh2Ktt 1,000 mg 250 mL/hr --Objective Data-- Vitals: [...] 53 53 54 Creatinine 2.85 2.89 3.04 [place] body weight: 86.8 kg (191 lb 5.7 oz) Adjusted ideal body weight: 99.9 kg (220 lb 3.5 oz) Estimated CrCl: ~35-45 mL/min --Cultures-- Microbiology Results Date and Time Order Name Sensitivity Status Organisms Specimen ID Source 10/07/2024 10:50 PM Giardia Cryptosporidium Antigens Final [id number] 10/07/2024 10:50 PM Ova and Parasite Comprehensive w/ Giardia/Crypto Final [id number] Feces 10/06/2024 1:04 AM #2 Blood culture-Peripheral site 2 Preliminary [id number] Peripheral 10/06/2024 1:04 AM #1 Blood culture-Peripheral site 1 Preliminary [id number] Peripheral --Vancomycin Concentrations-- Lab Results (Last 7 [...] for the consult. Jodi Ortiz PharmD Clinical Microfilm Mounter, Internal Medicine Preferred contact: [employer] Clinical Qaelisr-Lm-Ezzk Pager: [phone] October 10, 2024 9:13 AM * Eileen Schroeder MD, PhD - 10/10/2024 8:17 AM EDT Department of Internal Medicine Daily Progress Note Chief Complaint / Reason for Follow-Up Julien Gilbert is a 39 y.o. male on hospital day 5. The principal reason for today's follow up visit is Acute kidney injury superimposed on CKD ([facility]). CORTNEYON Pt was very conversational today. [...] at 10/08/2024 1:12 PM EDT US Duplex Esf-Ylw-Mopaexd Comp Final Result IMPRESSION: ABDOMEN 1. Cirrhotic [...] from outside facility. Will engage with them daily([phone]. Ask to speak to a tech) about [...] no head imaging has been performed at [facility]. -CT Head w/o contrast -Imaging [...] Select Supplement: Boost-1 kcal/ml supplement ([facility] only) Code Status: Full Code [...] reviewed the documentation by the medical team assembler and agree as documented. Any additions or clarifications are listed below. Daily plan was discussed with patient at bedside and questions addressed. Patient ID: Julien Gilbert is a 39 y.o. male currently admitted for Acute kidney injury superimposed on CKD ([facility]) Supplemental History/ ROS: No acute [...] kidney injury superimposed on CKD ([facility]) Active Problems: Spontaneous Bacterial Peritonitis ([facility]): Cultures from OSH were reported [...] lactulose and rifaximin Decompensated cirrhosis ([facility]): Appreciate hepatology consult. He has [...] IR. NADIYA (acute kidney injury) on CKD ([facility]): Appreciate nephrology consult. Likely due [...] another specialty or practice, other licensed professional (PT/OT/VIRTUAL RECRUITER/RT), or a non-medical community professional: Nephrology, Hepatology, [...] Strictly monitor urine output No Indication for FOOD SERVICE REPRESENTATIVE Not a candidate for terlipressin per liver due to HE, liver and kidney failure, on midodrine tid. Considering para today, cardiac workup pre txp Liver transplant workup per GI/ Primary team, considering for [facility], seen by renal transplant team Thank you for allowing us to participate in this patient's care. Discussed with Consult Staff. Ignacio Queen MD Renal Fellow Pager # [phone] Chief Complaint No chief complaint on file. [...] 9.0 9.3 PHOS -- 3.5 3.5 3.4 IGDA06Y 7.1* -- -- -- Lab Results Component Value Date IRON 81 10/08/2024 TIBC SEE COMMENT 10/08/2024 FERRITIN 706.9 (H) 10/08/2024 No results found for: [id number] , FOLATE Lab Results Component Value Date [...] CRUR No results found for: MICROALBUR , [id number] In addition to the above an extensive [...] 3.4 10/09/2024 Lab Results Component Value Date NQCU20M 7.1 (L) 10/08/2024 PLAN Continue IV albumin [...] PM Colten Huertas MD, KISHOR LIN, CATHYF high school science teacher Div. of Nephrology [facility] E-mail: [email or web address] This note was completely [...] 1:07 PM EDT [facility] PROGRESS NOTE Name: Julien Gilbert CSN: [id number] Consulted by: Fouzia Rene MD Reason for [...] nucleated cells, <2000 RBCs 10% Polynuclear, 90% [place] nuc. Fluid cultures reportedly grew gram + [...] in sodium chloride 0.9 % 250 mL Jmab1Blg (Completed) 1,000 mg Once 10/08/2024 10/08/2024 Admin Instructions: Contact pharmacy if there is a question/concern of whether vancomycin should begiven based on serum drug levels. Use Yxku9Juj Adapter - Mix Thoroughly Before Administration Route: Intravenous vancomycin (VANCOCIN) 1,500 mg in sodium chloride 0.9 % 250 mL Liom5Ept 1,500 mg Once 10/09/2024 10/10/2024 Admin Instructions: Contact pharmacy if there is a question/concern of whether vancomycin should begiven based on serum drug levels. Use Zngj0Psa Adapter - Mix Thoroughly Before Administration Route: [...] in sodium chloride 0.9 % 250 mL Acej7Qij 1,000 mg 250 mL/hr 10/06/24 1413 New [...] 10/07/2024 10:50 PM Giardia Cryptosporidium Antigens Final [id number] 10/07/2024 10:50 PM Ova and Parasite Comprehensive w/ Giardia/Crypto Final [id number] Feces 10/06/2024 1:04 AM #2 Blood culture-Peripheral site 2 Preliminary [id number] Peripheral 10/06/2024 1:04 AM #1 Blood culture-Peripheral site 1 Preliminary [id number] Peripheral --Vancomycin Concentrations-- Lab Results (Last 7 [...] for the consult. Jodi Ortiz PharmD Clinical Microfilm Mounter, Internal Medicine Preferred contact: PatientKeeper Clinical [place]-Ji-Bncu Pager: [phone] October 09, 2024 8:29 AM * Eileen Schroeder MD, PhD - 10/09/2024 8:00 AM EDT Department of Internal Medicine Daily Progress Note Chief Complaint / Reason for Follow-Up Julien Gilbert is a 39 y.o. male on hospital day 4. The principal reason for today's follow up visit is Acute kidney injury superimposed on CKD ([facility]). DREW and father at bedside [...] at 10/08/2024 1:12 PM EDT US Duplex Ifm-Xaf-Ghugnbo Comp Final Result IMPRESSION: ABDOMEN 1. Cirrhotic [...] from outside facility. Will engage with them daily([phone]. Ask to speak to a tech) about [...] no head imaging has been performed at [facility]. -CT Head w/o contrast -Imaging [...] Select Supplement: Boost-1 kcal/ml supplement ([facility] only) Code Status: Full Code [...] reviewed the documentation by the medical team assembler and agree as documented. Any additions or clarifications are listed below. Daily plan was discussed with patient at bedside and questions addressed. Patient ID: Julien Gilbert is a 39 y.o. male currently admitted for Acute kidney injury superimposed on CKD ([facility]) Supplemental History/ ROS: No acute [...] kidney injury superimposed on CKD ([facility]) Active Problems: Anemia: S/p 1 unit PRBC from yesterday. Hemoglobin responded appropriately and remained stable. Will continue to monitor. Metabolic encephalopathy: Mostly resolved. Likely related to combination of hepatic, metabolic, andpossibly infectious insults. - Continue home lactulose and rifaximin Spontaneous Bacterial Peritonitis ([facility]): Cultures from OSH are growing gram- positive organisms.We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 [facility] CONSULT NOTE Name: Julien Gilbert CSN: [id number] Consulted by: Angie Blanchard MD Reason for Consult: Decompensated Cirrhosis History of Present Illness: Julien Gilbert is a 39 y.o. with history of decompensated EtOH cirrhosis (complicated by EV, HRS, ascites, HE), HTN, and CKD. Patient admitted as transfer from [facility] ED with confusion and lethargy. [...] Patient was recently referred to [facility] for liver transplant evaluation. Patient [...] verbalize understanding. Transported via wheelchair to the [facility] to bepicked up for a lyft. * Dylan Dong RN - 10/14/2024 2:20 PM EDT Pt returned from laborer car barn status post [facility]. Bedside report received from laborer car barn, RN. Pt placed on telemetry, serial vital signs set up. Access site: RRA. Site is soft, no bleeding/hematoma, [address] Sheath removed in laborer car barn at 1402, TR band placed to site [...] EDT Pt arrived with and admitted into [facility] from [facility] with AMS. Hosiptalist paged to [...] Patient will remain free of falls Goal: [place] Fall Precautions Outcome: Progressing Problem: Daily Care [...] liver (CMS-HCC), Esophageal varices (CMS-HCC), Hepatorenal syndrome ([facility]-HCC), Hypertension, Other hyperlipidemia (07/26/2024), Renal cell carcinoma (CMS-HCC), Thrombocytopenia ([facility]-HCC), and Thyroid disease. PCP: Enedina Mcguire NP Home Pharmacy: [facility] [address] [facility] [place] [address] [address] [facility] [address] [facility] [facility] [id number] Medical Insurance Coverage: Payor: [employer] / Plan: [facility] / Product Type: *No Producttype* / Other Pertinent Information RN/CM received update from team and completed chart review. Pt is not medically ready for discharge. Nephrology to see today. Here for pre-transplant work up. Discharge Plan Anticipated discharge plan: home Anticipated discharge date: 10/17/24 CM/SW will continue to follow and remain available for discharge planning needs. Kandy [facility]AE [facility] * Plan of Care - Anu [...] Patient will remain free of falls Goal: [place] Fall Precautions Outcome: Progressing Problem: Daily Care [...] Patient will remain free of falls Goal: [place] Fall Precautions Outcome: Progressing Problem: Daily Care [...] Kandy Fuentes - 10/15/2024 2:26 PM EDT [facility] Case Management/Social Work Department Progress Note Patient Information Patient Name: Julien Gilbert Hospital day: 10 Inpatient/Observation: Inpatient Level of Care: blue Admit date: 10/05/2024 Admission diagnosis: AMS PMH: has a past medical history of Alcoholic cirrhosis of liver (CMS-HCC), Esophageal varices ([facility]-HCC), Hepatorenal syndrome ([facility]-HCC), Hypertension, Other hyperlipidemia (07/26/2024), Renal cell carcinoma (CMS-HCC), Thrombocytopenia ([facility]-HCC), and Thyroid disease. PCP: Enedina Mcguire NP Home Pharmacy: [facility] [facility] [address] [place] [address] [facility] [address] [facility] [id number] Medical Insurance Coverage: Payor: [facility] / Plan: [facility] / Product Type: *No Producttype* / [...] RN * Plan of Care - Anu Wloff RN - 10/15/2024 8:20 AM EDT Problem: [...] Patient will remain free of falls Goal: [place] Fall Precautions Outcome: Progressing Problem: Daily Care [...] of liver (CMS-HCC), Esophageal varices ([facility]-HCC), Hepatorenal syndrome ([facility]-HCC), Hypertension, Other hyperlipidemia (07/26/2024), Renal cell carcinoma ([facility]-HCC), Thrombocytopenia ([facility]-HCC), and Thyroid disease. PCP: Enedina Mcguire NP Home Pharmacy: [facility] [address] [place] [address] [facility] [address] [facility] [facility] [id number] Medical Insurance Coverage: Payor: [employer] / Plan: [facility] / Product Type: *No Producttype* / [...] Alcoholic hepatitis, Esophageal varices (CMS-HCC), Hepatorenal syndrome ([facility]- HCC), Hypertension, Other hyperlipidemia (07/26/2024), Renal cell carcinoma ([facility]-HCC), Thrombocytopenia ([facility]-HCC), and Thyroid disease. PCP: Enedina Mcguire NP Home Pharmacy: [facility] [address] [place] [address] [place] [address] [facility] [address] [facility] [id number] Medical Insurance Coverage: Payor: [facility] / Plan: [facility] / Product Type: *No Producttype* / Other Pertinent Information RN/CM received update from team and completed chart review. Pt is not medically ready for discharge. Patient is going to have left heart cath today. Discharge Plan Anticipated discharge plan: home Anticipated discharge date: 10/14/24 CM/SW will continue to follow and remain available for discharge planning needs. Kandy [facility]AE [facility] * Plan of Care - Gerda [...] disease. PCP: Enedina Mcguire NP Home Pharmacy: [facility] [address] [address] [facility] [address] [facility] [id number] Medical Insurance Coverage: Payor: [facility] / Plan: [facility] / Product Type: *No Producttype* / [...] available for discharge planning needs. Kandy [facility]AE [facility] * Plan of Care - Jodi [...] Patient will remain free of falls Goal: [place] Fall Precautions Outcome: Progressing Problem: Daily Care [...] Patient will remain free of falls Goal: [place] Fall Precautions Outcome: Progressing Problem: Daily Care [...] Kandy Fuentes - 10/09/2024 12:05 PM EDT [facility] Case [...] disease. PCP: Enedina Mcguire NP Home Pharmacy: [facility] 591 - [place], [place] - [address] [address] [facility] [address] [facility] [id number] Medical Insurance Coverage: Payor: [facility] / Plan: [facility] / Product Type: *No Producttype* / [...] Department Progress Note Patient Information Patient Name: Jluien Gilbert Hospital day: 3 Inpatient/Observation: Inpatient Level of Care: blue Admit date: 10/05/2024 Admission diagnosis: AMS PMH: has a past medical history of Alcoholic cirrhosis of liver (CMS-HCC), Alcoholic hepatitis, Esophageal varices ([facility]-HCC), Hepatorenal syndrome ([facility]- HCC), Hypertension, Other hyperlipidemia (07/26/2024), Renal cell carcinoma ([facility]-HCC), Thrombocytopenia ([facility]-HCC), and Thyroid disease. PCP: Enedina Mcguire NP Home Pharmacy: [facility] [address] [place] [address] [facility] [address] [facility] [id number] Medical Insurance Coverage: Payor: [facility] / Plan: [facility] / Product Type: *No Producttype* / [...] medical history of Alcoholic cirrhosis of liver ([facility]-HCC), Alcoholic hepatitis, Esophageal varices ([facility]-HCC), Hepatorenal syndrome ([facility]- HCC), Hypertension, Other hyperlipidemia (07/26/2024), Renal cell carcinoma ([facility]-HCC), Thrombocytopenia ([facility]-HCC), and Thyroid disease. PCP: Enedina Mcguire NP Home Pharmacy: [address] [address] [facility] [address] [facility] [address] Medical Insurance Coverage: Payor: [facility] / Plan: [facility] / Product Type: *No Producttype* / [...] Patient will remain free of falls Goal: [place] Fall Precautions Outcome: Progressing Problem: Daily Care [...] IGG ANTIBODY Routine 10/07/2024 6:37 PM EDT [id number] (AAT) QUANTITATION & MUTATION Routine 10/07/2024 6:37 [...] Routine 10/07/2024 6:19 PM EDT US DUPLEX [id number] COMPLETE Routine 10/07/2024 3:48 PM EDT US [...] 10/06/2024 4:01 AM EDT UPPER RESPIRATORY VIRAL/BACTERIAL PANEL-ROTOR CASTING MACHINE SETUP OPERATOR ONLY Routine 10/06/2024 3:12 AM EDT [...] - 146 mmol/L 10/17/2024 7:02 AM EDT [facility] Potassium 3.4(L) 3.5 - 5.3 mmol/L 10/17/2024 7:02 AM EDT [facility] Chloride 104 98 - 110 mmol/L 10/17/2024 7:02 AM EDT [facility] CO2 18(L) 21 - 33 mmol/L 10/17/2024 7:02 AM EDT [facility] Anion Gap 11 3 - 16 mmol/L 10/17/2024 7:02 AM EDT [facility] BUN 54(H) 7 - 25 mg/dL 10/17/2024 7:02 AM EDT [facility] Creatinine 2.88(H) 0.60 - 1.30 mg/dL 10/17/2024 7:02 AM EDT [facility] Glucose 127(H) 70 - 100 mg/dL 10/17/2024 7:02 AM EDT [facility] Calcium 8.2(L) 8.6 - 10.3 mg/dL 10/17/2024 7:02 AM EDT [facility] Phosphorus 4.5 2.1 - 4.7 mg/dL 10/17/2024 7:02 AM EDT [facility] Albumin 3.1(L) 3.5 - 5.7 g/dL 10/17/2024 7:02 AM EDT [facility] Osmolality, Calculated 292 278 - 305 mOsm/kg 10/17/2024 7:02 AM EDT [facility] EGFR 27 10/17/2024 7:02 AM EDT [facility] Comment:As of 2021, the estimated [...] MD, PhD LAB BLOOD ORDERABLES Final Result [facility] [address] * (ABNORMAL) Protime-INR (10/16/2024 6:31 AM EDT) Protime 22.5(H) 12.1 - 15.1 seconds 10/16/2024 8:04 AM EDT [facility] INR 1.9(H) 0.9 - 1.1 10/16/2024 8:04 AM EDT [facility] Comment: RECOMMENDED THERAPEUTIC RANGES USING INR : Stable oral anticoagulant therapy: 2.0 - 3.0 Mechanical prosthetic heart valve: 2.5 - 3.5 Recurrent acute myocardial infarction: 2.5 - 3.5 Plasma 10/16/2024 6:31 AM EDT 10/16/2024 6:56 AM EDT Eileen Schroeder MD, PhD LAB BLOOD ORDERABLES Final Result Performing Organization Address City/[facility]/ZIP Co de Phone Number [facility] [address] * (ABNORMAL) Hepatic Function Panel (10/16/2024 6:31 AM EDT) Total Bilirubin 7.6(H) 0.0 - 1.5 mg/dL 10/16/2024 7:24 AM EDT [facility] Bilirubin, Direct 3.97(H) 0.00 - 0.40 mg/dL 10/16/2024 7:24 AM EDT [facility] AST 45(H) 13 - 39 U/L 10/16/2024 7:24 AM EDT [facility] ALT 23 7 - 52 U/L 10/16/2024 7:24 AM EDT [facility] Alkaline Phosphatase 137(H) 36 - 125 U/L 10/16/2024 7:24 AM EDT [facility] Total Protein 5.1(L) 6.4 - 8.9 g/dL 10/16/2024 7:24 AM EDT [facility] Albumin 3.4(L) 3.5 - 5.7 g/dL 10/16/2024 7:24 AM EDT [facility] Bilirubin, Indirect 3.63(H) 0.00 - 1.10 mg/dL 10/16/2024 7:24 AM EDT [facility] Plasma 10/16/2024 6:31 AM EDT 10/16/2024 6:56 AM EDT us Eileen Schroeder MD, PhD LAB BLOOD ORDERABLES Final Result Performing Organization Address City/[facility]/ZIP Co de Phone Number [facility] [address] [facility]. [address] * Magnesium (10/16/2024 6:31 AM EDT) Magnesium 2.1 1.5 - 2.5 mg/dL 10/16/2024 7:24 AM EDT [facility] Plasma 10/16/2024 6:31 AM EDT 10/16/2024 6:56 AM EDT us Eileen Schroeder MD, PhD LAB BLOOD ORDERABLES Final Result [facility] [address] * (ABNORMAL) Renal Function Panel w/EGFR (10/16/2024 6:31 AM EDT) Sodium 135 133 - 146 mmol/L 10/16/2024 7:24 AM EDT [facility] Potassium 3.7 3.5 - 5.3 mmol/L 10/16/2024 7:24 AM EDT [facility] Chloride 106 98 - 110 mmol/L 10/16/2024 7:24 AM EDT [facility] CO2 16(L) 21 - 33 mmol/L 10/16/2024 7:24 AM EDT [facility] Anion Gap 13 3 - 16 mmol/L 10/16/2024 7:24 AM EDT [facility] BUN 55(H) 7 - 25 mg/dL 10/16/2024 7:24 AM EDT [facility] Creatinine 3.20(H) 0.60 - 1.30 mg/dL 10/16/2024 7:24 AM EDT [facility] Glucose 121(H) 70 - 100 mg/dL 10/16/2024 7:24 AM EDT [facility] Calcium 8.5(L) 8.6 - 10.3 mg/dL 10/16/2024 7:24 AM EDT [facility] Phosphorus 4.2 2.1 - 4.7 mg/dL 10/16/2024 7:24 AM EDT [facility] Albumin 3.4(L) 3.5 - 5.7 g/dL 10/16/2024 7:24 AM EDT [facility] Osmolality, Calculated 296 278 - 305 mOsm/kg 10/16/2024 7:24 AM EDT [facility] EGFR 24 10/16/2024 7:24 AM EDT [facility] Comment:As of 2021, the estimated [...] MD, PhD LAB BLOOD ORDERABLES Final Result [facility] [address] [address], [facility] * (ABNORMAL) CBC (10/16/2024 6:31 AM EDT) WBC 5.8 3.8 - 10.8 10E3/uL 10/16/2024 8:00 AM EDT [facility] RBC 2.16(L) 4.20 - 5.80 10E6/uL 10/16/2024 8:00 AM EDT [facility] Hemoglobin 7.7(L) 13.2 - 17.1 g/dL 10/16/2024 8:00 AM EDT [facility] Hematocrit 22.1(L) 38.5 - 50.0 % 10/16/2024 8:00 AM EDT [facility] MCV 102.3(H) 80.0 - 100.0 fL 10/16/2024 8:00 AM EDT [facility] MCH 35.7(H) 27.0 - 33.0 pg 10/16/2024 8:00 AM EDT [facility] MCHC 34.9 32.0 - 36.0 g/dL 10/16/2024 8:00 AM EDT [facility] RDW 17.7(H) 11.0 - 15.0 % 10/16/2024 8:00 AM EDT [facility] Platelets 43(L) 140 - 400 10E3/uL 10/16/2024 8:00 AM EDT [facility] Comment: Specimen checked for clots. None detected. Slide Reviewed for PLT Clumps. None Seen. Platelet Estimate Decreased 10/16/2024 8:00 AM EDT [facility] MPV 8.6 7.5 - 11.5 fL 10/16/2024 8:00 AM EDT [facility] Whole Blood 10/16/2024 6:31 AM EDT 10/16/2024 6:57 AM EDT Narrative [facility] - 10/16/2024 8:00 AM EDT Peripheral blood smear was scanned per review criteria approved by the laboratory anesthesiology medical doctor. us Eileen Schroeder MD, PhD LAB BLOOD ORDERABLES Final Result [facility] [address] * CARISA Rhythm Strip - Scan (10/15/2024 8:02 PM EDT) us Scanning [employer]chhim SCAN DOCS - NO RESULTS Final Res ult * CARISA Rhythm Strip - Scan (10/15/2024 8:02 PM EDT) us Scanning [employer]him SCAN DOCS - NO RESULTS Final Res ult * Prepare Platelets, leukoreduced, 1 Units (10/15/2024 6:16 AM EDT) [facility] Signature Product Code [id number] HCLL Unit Number [id number] HCLL Dispense Status Presumed Transfused_PT HCLL Blood Expiration Date HCLL Coding System [id number] HCLL Blood Bank Product us Eleazar Nguyễn MD BLOOD BANK PRODUCT ORDE LILIA Final Result Performing Organization Address [facility] Co de Phone Number HC[facility] * Prepare Fresh Frozen Plasma, 1 Units (10/15/2024 6:15 AM EDT) Product Code [id number] HCLL Unit Number [id number] HCLL Dispense Status Presumed Transfused_PT HCLL Blood Expiration Date [id number] HCLL Coding System [id number] HCLL Blood Bank Product us Eleazar Nguyễn MD BLOOD BANK PRODUCT ORDE LILIA Final Result Performing Organization Address [facility] Co de Phone Number [facility] * (ABNORMAL) Protime-INR (10/15/2024 6:08 AM EDT) Protime 21.6(H) 12.1 - 15.1 seconds 10/15/2024 6:36 AM EDT [facility] INR 1.8(H) 0.9 - 1.1 10/15/2024 6:36 AM EDT [facility] Comment: RECOMMENDED THERAPEUTIC RANGES USING INR : Stable oral anticoagulant therapy: 2.0 - 3.0 Mechanical prosthetic heart valve: 2.5 - 3.5 Recurrent acute myocardial infarction: 2.5 - 3.5 Plasma 10/15/2024 6:08 AM EDT 10/15/2024 6:17 AM EDT us Eileen Schroeder MD, PhD LAB BLOOD ORDERABLES Final Result Performing Organization Address City/[facility]/ZIP Co de Phone Number [facility] [address] * (ABNORMAL) Hepatic Function Panel (10/15/2024 6:08 AM EDT) Total Bilirubin 7.1(H) 0.0 - 1.5 mg/dL 10/15/2024 6:45 AM EDT [facility] Bilirubin, Direct 3.77(H) 0.00 - 0.40 mg/dL 10/15/2024 6:45 AM EDT [facility] AST 39 13 - 39 U/L 10/15/2024 6:45 AM EDT [facility] ALT 22 7 - 52 U/L 10/15/2024 6:45 AM EDT [facility] Alkaline Phosphatase 115 36 - 125 U/L 10/15/2024 6:45 AM EDT [facility] Total Protein 4.8(L) 6.4 - 8.9 g/dL 10/15/2024 6:45 AM EDT [facility] Albumin 3.2(L) 3.5 - 5.7 g/dL 10/15/2024 6:45 AM EDT [facility] Bilirubin, Indirect 3.33(H) 0.00 - 1.10 mg/dL 10/15/2024 6:45 AM EDT [facility] Plasma 10/15/2024 6:08 AM EDT 10/15/2024 6:17 AM EDT us Eileen Schroeder MD, PhD LAB BLOOD ORDERABLES Final Result Performing Organization Address [facility]/ZIP Co de Phone Number [facility] [address] [place] [address] * Magnesium (10/15/2024 6:08 AM EDT) Magnesium 1.8 1.5 - 2.5 mg/dL 10/15/2024 6:45 AM EDT [facility] Plasma 10/15/2024 6:08 AM EDT 10/15/2024 6:17 AM EDT Eileen Schroeder MD, PhD LAB BLOOD ORDERABLES Final Result Performing Organization Address [facility]/ZIP Co de Phone Number [facility] [address] * (ABNORMAL) Renal Function Panel w/EGFR (10/15/2024 6:08 AM EDT) Sodium 135 133 - 146 mmol/L 10/15/2024 6:45 AM EDT [facility] Potassium 3.4(L) 3.5 - 5.3 mmol/L 10/15/2024 6:45 AM EDT [facility] Chloride 107 98 - 110 mmol/L 10/15/2024 6:45 AM EDT [facility] CO2 17(L) 21 - 33 mmol/L 10/15/2024 6:45 AM EDT [facility] Anion Gap 11 3 - 16 mmol/L 10/15/2024 6:45 AM EDT [facility] BUN 55(H) 7 - 25 mg/dL 10/15/2024 6:45 AM T [facility] Creatinine 2.88(H) 0.60 - 1.30 mg/dL 10/15/2024 6:45 AM T [facility] Glucose 125(H) 70 - 100 mg/dL 10/15/2024 6:45 AM EDT [facility] Calcium 8.4(L) 8.6 - 10.3 mg/dL 10/15/2024 6:45 AM EDT [facility] [facility] Phosphorus 3.9 2.1 - 4.7 mg/dL 10/15/2024 6:45 AM EDT [facility] Albumin 3.2(L) 3.5 - 5.7 g/dL 10/15/2024 6:45 AM [facility] Osmolality, Calculated 297 278 - 305 mOsm/kg 10/15/2024 6:45 AM EDT [facility] EGFR 27 10/15/2024 6:45 AM [facility] Comment:As of 2021, the estimated [...] MD, PhD LAB BLOOD ORDERABLES Final Result [facility] [address] [place], [place] [address] * (ABNORMAL) CBC (10/15/2024 6:08 AM EDT) WBC 4.6 3.8 - 10.8 10E3/uL 10/15/2024 6:51 AM EDT [facility] RBC 1.94(L) 4.20 - 5.80 10E6/uL 10/15/2024 6:51 AM EDT [facility] Hemoglobin 7.1(L) 13.2 - 17.1 g/dL 10/15/2024 6:51 AM EDT [facility] Hematocrit 19.6(L) 38.5 - 50.0 % 10/15/2024 6:51 AM EDT [facility] MCV 100.8(H) 80.0 - 100.0 fL 10/15/2024 6:51 AM EDT [facility] MCH 36.7(H) 27.0 - 33.0 pg 10/15/2024 6:51 AM EDT [facility] MCHC 36.4(H) 32.0 - 36.0 g/dL 10/15/2024 6:51 AM EDT [facility] RDW 17.3(H) 11.0 - 15.0 % 10/15/2024 6:51 AM EDT [facility] Platelets 34(L) 140 - 400 10E3/uL 10/15/2024 6:51 AM EDT [facility] Comment:Specimen checked for clots. None detected. MPV 8.7 7.5 - 11.5 fL 10/15/2024 6:51 AM EDT [facility] Whole Blood 10/15/2024 6:08 AM EDT 10/15/2024 6:17 AM EDT us Eileen Schroeder MD, PhD LAB BLOOD ORDERABLES Final Result Performing Organization Address [facility] Co de Phone Number [address] * PRA-HLA Ab Screen (Cytotoxic) (10/15/2024 6:08 AM EDT) Pathologist [facility] The request and specimen(s) for this test have been received and transported to the [facility] at [address] [place] [address]. The [facility] will report results directly to the client. 10/15/2024 6:42 AM EDT [facility] Comment:The request and spec imen(s) for this test have been received and transported to the [facility] at [address] [place] [address]. The [facility] will report results directly to the client. Serum 10/15/2024 6:08 AM EDT 10/15/2024 6:42 AM EDT us Cosmo Pacheco MD LAB BLOOD ORDERABLES Final Resul t Performing Organization Address [facility] Co de Phone Number [facility] [address] [place] [address] * LEFT HEART CATH (10/14/2024 2:09 PM EDT) 10/14/2024 11:4 7 AM EDT Narrative [facility] - 10/14/2024 9:27 PM EDT *[facility]* Cardiac Software Development Intern [address] [place] [address] CATHETERIZATION LAB STUDY Patient: Julien Gilbert Age: 39 Study Date: 10/14/2024 Gender: M Study Time: 11:47:07 AM : 1985 HT/WT: 193cm / 120kg Performing Physician: Irving Matat MD Ordering Physician: Julian Mckenzie MD Referring [...] manner. 3. Right radial artery access. A [id number] Glidesheath - Slender - .021 sheath was [...] + !LV pressure s/d, ed !, 22, dP/oq=2479tr Hg/s! + + + !Aortic pressure s/d (m)!106/58 (75) ! + + + ATTESTATION: Dr. Matta was present for the entire procedure. Dr. aJy Quan was the initial author of this report. Prepared and electronically signed by Irving Matta MD [id number] Procedure Note Irving Matta MD - 10/14/2024 *[facility]* Cardiac Software Development Intern [address] [place] [address] CATHETERIZATION LAB STUDY Patient: Julien Gilbert Age: [...] manner. 3. Right radial artery access. A [id number] Glidesheath - Slender - .021sheath was advanced [...] complications. Contrast: Omnipaque 350 25ml (total dose). [id number] 125ml (wasted). Radiation: Fluoroscopy time: 15min. Total [...] + + !LV pressure s/d, ed !, dP/en=7112ze Hg/s! + + + !Aortic pressure s/d (m)!106/58 (75) ! + + + ATTESTATION: Dr. Matta was present for the entire procedure. Dr. Jay Quan wasthe initial author of this report. Prepared and electronically signed by Irving Matta MD [id number] [place] [id number] Final Result [facility] * Transfuse Fresh Frozen [...] BLOOD ADMIN Final Result Performing Organization Address [facility]/ZIP Co de Phone Number EXTERNAL * Transfuse Platelets Transfusion Rate: Per dept routine, 1 Units (10/14/2024 12:43 PM EDT) us Eleazar Nguyễn MD NURSING TREATMENT ORDER PAL - BLOOD ADMIN Final Result EXTERNAL * Antibody Screen (10/14/2024 8:21 AM EDT) Pathologist [facility] Antibody Screen Negative 10/14/2024 9:11 AM EDT [facility] Blood 10/14/2024 8:21 AM EDT 10/14/2024 8:33 AM EDT [facility] - 10/14/2024 9:26 AM EDT Testing performed by [facility] Transfusion Service us Eleazar Nguyễn MD BLOOD BANK TEST ORDERAB LES Final Result Performing Organization Address City/[facility]/ZIP Co de Phone Number [facility] [address] [place] [address], [facility] * ABO/Rh (10/14/2024 8:21 AM EDT) ABO Grouping O 10/14/2024 8:55 AM EDT [facility] Rh Type Positive 10/14/2024 8:55 AM EDT [facility] Blood 10/14/2024 8:21 AM EDT 10/14/2024 8:33 AM EDT us Eleazar Nguyễn MD BLOOD BANK TEST ORDERAB LES Final Result Performing Organization Address [facility] Co de Phone Number [facility] [address] * (ABNORMAL) Protime-INR (10/14/2024 2:53 AM EDT) Protime 23.8(H) 12.1 - 15.1 seconds 10/14/2024 4:34 AM EDT [facility] INR 2.1(H) 0.9 - 1.1 10/14/2024 4:34 AM EDT [facility] Comment: RECOMMENDED THERAPEUTIC RANGES USING INR : Stable oral anticoagulant therapy: 2.0 - 3.0 Mechanical prosthetic heart valve: 2.5 - 3.5 Recurrent acute myocardial infarction: 2.5 - 3.5 Plasma 10/14/2024 2:53 AM EDT 10/14/2024 4:16 AM EDT us Eileen Schroeder MD, PhD LAB BLOOD ORDERABLES Final Result Performing Organization Address City/[facility] Co de Phone Number [facility] [address] [facility] * (ABNORMAL) Hepatic Function Panel (10/14/2024 2:53 AM EDT) Total Bilirubin 7.2(H) 0.0 - 1.5 mg/dL 10/14/2024 4:45 AM EDT [facility] Bilirubin, Direct 3.86(H) 0.00 - 0.40 mg/dL 10/14/2024 4:45 AM EDT [facility] AST 41(H) 13 - 39 U/L 10/14/2024 4:45 AM EDT [facility] ALT 22 7 - 52 U/L 10/14/2024 4:45 AM EDT [facility] Alkaline Phosphatase 119 36 - 125 U/L 10/14/2024 4:45 AM EDT [facility] Total Protein 4.6(L) 6.4 - 8.9 g/dL 10/14/2024 4:45 AM EDT [facility] Albumin 3.3(L) 3.5 - 5.7 g/dL 10/14/2024 4:45 AM EDT [facility] Bilirubin, Indirect 3.34(H) 0.00 - 1.10 mg/dL 10/14/2024 4:45 AM EDT [facility] Plasma 10/14/2024 2:53 AM EDT 10/14/2024 4:16 AM EDT Eileen Schroeder MD, PhD LAB BLOOD ORDERABLES Final Result Performing Organization Address City/[facility]/ZIP Co de Phone Number [facility] [address] [place] [address] * Magnesium (10/14/2024 2:53 AM EDT) Magnesium 1.9 1.5 - 2.5 mg/dL 10/14/2024 4:45 AM EDT [facility] Plasma 10/14/2024 2:53 AM EDT 10/14/2024 4:16 AM EDT Eileen Schroeder MD, PhD LAB BLOOD ORDERABLES Final Result [facility] [address] [place] [address] * (ABNORMAL) Renal Function Panel w/EGFR (10/14/2024 2:53 AM EDT) Sodium 136 133 - 146 mmol/L 10/14/2024 4:45 AM EDT [facility] Potassium 3.5 3.5 - 5.3 mmol/L 10/14/2024 4:45 AM EDT [facility] Chloride 107 98 - 110 mmol/L 10/14/2024 4:45 AM EDT [facility] CO2 16(L) 21 - 33 mmol/L 10/14/2024 4:45 AM EDT [facility] Anion Gap 13 3 - 16 mmol/L 10/14/2024 4:45 AM EDT [facility] BUN 55(H) 7 - 25 mg/dL 10/14/2024 4:45 AM EDT [facility] Creatinine 3.01(H) 0.60 - 1.30 mg/dL 10/14/2024 4:45 AM EDT [facility] Glucose 95 70 - 100 mg/dL 10/14/2024 4:45 AM EDT [facility] Calcium 8.5(L) 8.6 - 10.3 mg/dL 10/14/2024 4:45 AM EDT [facility] Phosphorus 4.4 2.1 - 4.7 mg/dL 10/14/2024 4:45 AM EDT [facility] Albumin 3.3(L) 3.5 - 5.7 g/dL 10/14/2024 4:45 AM EDT [facility] Osmolality, Calculated 297 278 - 305 mOsm/kg 10/14/2024 4:45 AM EDT [facility] EGFR 26 10/14/2024 4:45 AM EDT [facility] Comment:As of 2021, the estimated [...] MD, PhD LAB BLOOD ORDERABLES Final Result [facility] [address] * (ABNORMAL) CBC (10/14/2024 2:53 AM EDT) WBC 5.5 3.8 - 10.8 10E3/uL 10/14/2024 5:00 AM EDT [facility] RBC 2.09(L) 4.20 - 5.80 10E6/uL 10/14/2024 5:00 AM EDT [facility] Hemoglobin 7.6(L) 13.2 - 17.1 g/dL 10/14/2024 5:00 AM EDT [facility] Hematocrit 21.3(L) 38.5 - 50.0 % 10/14/2024 5:00 AM EDT [facility] MCV 101.7(H) 80.0 - 100.0 fL 10/14/2024 5:00 AM EDT [facility] MCH 36.3(H) 27.0 - 33.0 pg 10/14/2024 5:00 AM EDT [facility] MCHC 35.7 32.0 - 36.0 g/dL 10/14/2024 5:00 AM EDT [facility] RDW 17.6(H) 11.0 - 15.0 % 10/14/2024 5:00 AM EDT [facility] Platelets 35(L) 140 - 400 10E3/uL 10/14/2024 5:00 AM EDT [facility] Comment: Specimen checked for clots. None detected. Slide Reviewed for PLT Clumps. None Seen. MPV 8.5 7.5 - 11.5 fL 10/14/2024 5:00 AM EDT [facility] Whole Blood 10/14/2024 2:53 AM EDT 10/14/2024 4:17 AM EDT Eileen Schroeder MD, PhD LAB BLOOD ORDERABLES Final Result [facility] [address] * Cardiac Cath Documents Scan (10/14/2024 2:06 AM EDT) us Scanning [facility] SCAN DOCS - NO RESULTS Final [...] GADOBUTROL 1 MMOL/ML INTRAVENOUS SYRINGE ([facility]) administered intravenously COMPARISON: CT 09/03/2024. [...] GADOBUTROL 1 MMOL/ML INTRAVENOUS SYRINGE ([facility])administered intravenously COMPARISON: CT 09/03/2024. Ultrasound [...] - 15.1 seconds 10/13/2024 6:12 AM EDT [facility] INR 2.1(H) 0.9 - 1.1 10/13/2024 6:12 AM EDT [facility] Comment: RECOMMENDED THERAPEUTIC RANGES USING INR : Stable oral anticoagulant therapy: 2.0 - 3.0 Mechanical prosthetic heart valve: 2.5 - 3.5 Recurrent acute myocardial infarction: 2.5 - 3.5 Plasma 10/13/2024 5:35 AM EDT 10/13/2024 5:52 AM EDT Eileen Schroeder MD, PhD LAB BLOOD ORDERABLES Final Result [facility] [address] [place] [address], [facility] * (ABNORMAL) Hepatic Function Panel (10/13/2024 5:35 AM EDT) Total Bilirubin 6.5(H) 0.0 - 1.5 mg/dL 10/13/2024 6:30 AM EDT [facility] Bilirubin, Direct 3.53(H) 0.00 - 0.40 mg/dL 10/13/2024 6:30 AM EDT [facility] AST 42(H) 13 - 39 U/L 10/13/2024 6:30 AM EDT [facility] ALT 19 7 - 52 U/L 10/13/2024 6:30 AM EDT [facility] Alkaline Phosphatase 108 36 - 125 U/L 10/13/2024 6:30 AM EDT [facility] Total Protein 4.4(L) 6.4 - 8.9 g/dL 10/13/2024 6:30 AM EDT [facility] Albumin 3.1(L) 3.5 - 5.7 g/dL 10/13/2024 6:30 AM EDT [facility] Bilirubin, Indirect 2.97(H) 0.00 - 1.10 mg/dL 10/13/2024 6:30 AM EDT [facility] Plasma 10/13/2024 5:35 AM EDT 10/13/2024 5:52 AM EDT Eileen Schroeder MD, PhD LAB BLOOD ORDERABLES Final Result Performing Organization Address [facility] Co de Phone Number [facility] [address] * Magnesium (10/13/2024 5:35 AM EDT) Magnesium 2.0 1.5 - 2.5 mg/dL 10/13/2024 6:30 AM EDT [facility] Plasma 10/13/2024 5:35 AM EDT 10/13/2024 5:52 AM EDT Eileen Schroeder MD, PhD LAB BLOOD ORDERABLES Final Result Performing Organization Address City/[facility]/ZIP Co de Phone Number [facility] [address] * (ABNORMAL) Renal Function Panel w/EGFR (10/13/2024 5:35 AM EDT) Sodium 134 133 - 146 mmol/L 10/13/2024 6:30 AM EDT [facility] Potassium 3.7 3.5 - 5.3 mmol/L 10/13/2024 6:30 AM EDT [facility] Chloride 109 98 - 110 mmol/L 10/13/2024 6:30 AM EDT [facility] CO2 14(L) 21 - 33 mmol/L 10/13/2024 6:30 AM EDT [facility] Anion Gap 11 3 - 16 mmol/L 10/13/2024 6:30 AM EDT [facility] BUN 54(H) 7 - 25 mg/dL 10/13/2024 6:30 AM EDT [facility] Creatinine 2.99(H) 0.60 - 1.30 mg/dL 10/13/2024 6:30 AM EDT [facility] Glucose 116(H) 70 - 100 mg/dL 10/13/2024 6:30 AM EDT [facility] Calcium 8.3(L) 8.6 - 10.3 mg/dL 10/13/2024 6:30 AM EDT [facility] Phosphorus 4.5 2.1 - 4.7 mg/dL 10/13/2024 6:30 AM EDT [facility] Albumin 3.1(L) 3.5 - 5.7 g/dL 10/13/2024 6:30 AM EDT [facility] Osmolality, Calculated 294 278 - 305 mOsm/kg 10/13/2024 6:30 AM EDT [facility] EGFR 26 10/13/2024 6:30 AM EDT [facility] Comment:As of 2021, the estimated [...] MD, PhD LAB BLOOD ORDERABLES Final Result [facility] [address] [place] [address], [facility] * (ABNORMAL) CBC (10/13/2024 5:35 AM EDT) WBC 4.7 3.8 - 10.8 10E3/uL 10/13/2024 6:22 AM EDT [facility] RBC 2.06(L) 4.20 - 5.80 10E6/uL 10/13/2024 6:22 AM EDT [facility] Hemoglobin 7.4(L) 13.2 - 17.1 g/dL 10/13/2024 6:22 AM EDT [facility] Hematocrit 21.7(L) 38.5 - 50.0 % 10/13/2024 6:22 AM EDT [facility] MCV 105.4(H) 80.0 - 100.0 fL 10/13/2024 6:22 AM EDT [facility] MCH 35.9(H) 27.0 - 33.0 pg 10/13/2024 6:22 AM EDT [facility] MCHC 34.0 32.0 - 36.0 g/dL 10/13/2024 6:22 AM EDT [facility] RDW 18.5(H) 11.0 - 15.0 % 10/13/2024 6:22 AM EDT [facility] Platelets 35(L) 140 - 400 10E3/uL 10/13/2024 6:22 AM EDT [facility] Comment: CNV Specimen checked for clots. None detected. MPV 8.4 7.5 - 11.5 fL 10/13/2024 6:22 AM EDT [facility] Whole Blood 10/13/2024 5:35 AM EDT 10/13/2024 5:53 AM EDT us Eileen Schroeder MD, PhD LAB BLOOD ORDERABLES Final Result Performing Organization Address [facility]/ZIP Co de Phone Number [facility] [address] [facility]. [address] * (ABNORMAL) Ammonia (10/13/2024 5:35 AM EDT) Ammonia 203(HH) 27 - 90 ug/dL 10/13/2024 7:16 AM EDT [facility] Comment: HEMOLYSIS EVIDENT. RESULTS MAY BE INFLUENCED. Critical Result [id number] Called to and read back by: KEY MELO RN at: 10/13/2024 07:15:55 by:NISREEN Plasma 10/13/2024 5:35 AM EDT 10/13/2024 6:19 AM EDT us Ellis Mays DO LAB BLOOD ORDERABLES Final Resul t Performing Organization Address [facility]/ZIP Co de Phone Number [facility] [address] [facility] * CARISA Rhythm Strip - Scan (10/12/2024 10:30 PM EDT) us Scanning [facility] SCAN DOCS - NO RESULTS Final Res ult * (ABNORMAL) Protime-INR (10/12/2024 5:44 AM EDT) Protime 25.7(H) 12.1 - 15.1 seconds 10/12/2024 6:12 AM EDT [facility] INR 2.3(H) 0.9 - 1.1 10/12/2024 6:12 AM EDT [facility] Comment: RECOMMENDED THERAPEUTIC RANGES USING INR : Stable oral anticoagulant therapy: 2.0 - 3.0 Mechanical prosthetic heart valve: 2.5 - 3.5 Recurrent acute myocardial infarction: 2.5 - 3.5 Plasma 10/12/2024 5:44 AM EDT 10/12/2024 5:58 AM EDT Eileen Schroeder MD, PhD LAB BLOOD ORDERABLES Final Result Performing Organization Address [facility] de Phone Number [facility] [address] * (ABNORMAL) Hepatic Function Panel (10/12/2024 5:44 AM EDT) Total Bilirubin 6.5(H) 0.0 - 1.5 mg/dL 10/12/2024 6:29 AM EDT [facility] Bilirubin, Direct 3.64(H) 0.00 - 0.40 mg/dL 10/12/2024 6:29 AM EDT [facility] AST 40(H) 13 - 39 U/L 10/12/2024 6:29 AM EDT [facility] ALT 19 7 - 52 U/L 10/12/2024 6:29 AM EDT [facility] Alkaline Phosphatase 99 36 - 125 U/L 10/12/2024 6:29 AM EDT [facility] Total Protein 4.2(L) 6.4 - 8.9 g/dL 10/12/2024 6:29 AM EDT [facility] Albumin 3.1(L) 3.5 - 5.7 g/dL 10/12/2024 6:29 AM EDT [facility] Bilirubin, Indirect 2.86(H) 0.00 - 1.10 mg/dL 10/12/2024 6:29 AM EDT [facility] Plasma 10/12/2024 5:44 AM EDT 10/12/2024 5:58 AM EDT Eileen Schroeder MD, PhD LAB BLOOD ORDERABLES Final Result Performing Organization Address [facility] Co de Phone Number [facility] [address] * Magnesium (10/12/2024 5:44 AM EDT) Magnesium 1.9 1.5 - 2.5 mg/dL 10/12/2024 6:29 AM EDT [facility] Plasma 10/12/2024 5:4 4 AM EDT 10/12/2024 5:58 AM EDT us Eileen Schroeder MD, PhD LAB BLOOD ORDERABLES Final Result [facility] [address] [place], [place] [address] * (ABNORMAL) Renal Function Panel w/EGFR (10/12/2024 5:44 AM EDT) Sodium 135 133 - 146 mmol/L 10/12/2024 6:29 AM EDT [facility] Potassium 3.7 3.5 - 5.3 mmol/L 10/12/2024 6:29 AM EDT [facility] Chloride 109 98 - 110 mmol/L 10/12/2024 6:29 AM EDT [facility] CO2 17(L) 21 - 33 mmol/L 10/12/2024 6:29 AM EDT [facility] Anion Gap 9 3 - 16 mmol/L 10/12/2024 6:29 AM EDT [facility] BUN 52(H) 7 - 25 mg/dL 10/12/2024 6:29 AM EDT [facility] Creatinine 2.94(H) 0.60 - 1.30 mg/dL 10/12/2024 6:29 AM EDT [facility] Glucose 121(H) 70 - 100 mg/dL 10/12/2024 6:29 AM EDT [facility] Calcium 8.5(L) 8.6 - 10.3 mg/dL 10/12/2024 6:29 AM EDT [facility] Phosphorus 4.6 2.1 - 4.7 mg/dL 10/12/2024 6:29 AM EDT [facility] Albumin 3.1(L) 3.5 - 5.7 g/dL 10/12/2024 6:29 AM EDT [facility] Osmolality, Calculated 295 278 - 305 mOsm/kg 10/12/2024 6:29 AM EDT [facility] EGFR 27 10/12/2024 6:29 AM [...] MD, PhD LAB BLOOD ORDERABLES Final Result [facility] [address] [place] [address], [facility] * (ABNORMAL) CBC (10/12/2024 5:44 AM EDT) WBC 3.3(L) 3.8 - 10.8 10E3/uL 10/12/2024 7:06 AM EDT [facility] RBC 1.95(L) 4.20 - 5.80 10E6/uL 10/12/2024 7:06 AM EDT [facility] Hemoglobin 7.2(L) 13.2 - 17.1 g/dL 10/12/2024 7:06 AM EDT [facility] Hematocrit 19.7(L) 38.5 - 50.0 % 10/12/2024 7:06 AM EDT [facility] MCV 101.2(H) 80.0 - 100.0 fL 10/12/2024 7:06 AM EDT [facility] MCH 37.0(H) 27.0 - 33.0 pg 10/12/2024 7:06 AM EDT [facility] MCHC 36.5(H) 32.0 - 36.0 g/dL 10/12/2024 7:06 AM EDT [facility] RDW 17.6(H) 11.0 - 15.0 % 10/12/2024 7:06 AM EDT [facility] Platelets 30(L) 140 - 400 10E3/uL 10/12/2024 7:06 AM EDT [facility] Comment: Specimen checked for clots. None detected. Slide Reviewed for PLT Clumps. None Seen. Platelet Estimate Decreased 10/12/2024 7:06 AM EDT [facility] MPV 8.3 7.5 - 11.5 fL 10/12/2024 7:06 AM EDT [facility] Whole Blood 10/12/2024 5:44 AM EDT 10/12/2024 5:58 AM EDT Narrative [facility] - 10/12/2024 7:06 AM EDT Peripheral blood smear was scanned per review criteria approved by the laboratory anesthesiology medical doctor. us Eileen Schroeder MD, PhD LAB BLOOD ORDERABLES Final Result [facility] [address] * CARISA Rhythm Strip - Scan (10/11/2024 10:04 PM EDT) us Scanning [facility] SCAN DOCS - NO RESULTS Final Res ult * (ABNORMAL) Protime-INR (10/11/2024 3:02 AM EDT) Protime 26.8(H) 12.1 - 15.1 seconds 10/11/2024 3:30 AM EDT [facility] INR 2.4(H) 0.9 - 1.1 10/11/2024 3:30 AM EDT [facility] Comment: RECOMMENDED THERAPEUTIC RANGES USING INR : Stable oral anticoagulant therapy: 2.0 - 3.0 Mechanical prosthetic heart valve: 2.5 - 3.5 Recurrent acute myocardial infarction: 2.5 - 3.5 Plasma 10/11/2024 3:02 AM EDT 10/11/2024 3:08 AM EDT us Eileen Schroeder MD, PhD LAB BLOOD ORDERABLES Final Result Performing Organization Address [facility] Co de Phone Number [facility] [address] * (ABNORMAL) Hepatic Function Panel (10/11/2024 3:02 AM EDT) Total Bilirubin 7.3(H) 0.0 - 1.5 mg/dL 10/11/2024 3:38 AM EDT [facility] Bilirubin, Direct 3.85(H) 0.00 - 0.40 mg/dL 10/11/2024 3:38 AM EDT [facility] AST 39 13 - 39 U/L 10/11/2024 3:38 AM EDT [facility] ALT 20 7 - 52 U/L 10/11/2024 3:38 AM EDT [facility] Alkaline Phosphatase 88 36 - 125 U/L 10/11/2024 3:38 AM EDT [facility] Total Protein 4.5(L) 6.4 - 8.9 g/dL 10/11/2024 3:38 AM EDT [facility] Albumin 3.3(L) 3.5 - 5.7 g/dL 10/11/2024 3:38 AM EDT [facility] Bilirubin, Indirect 3.45(H) 0.00 - 1.10 mg/dL 10/11/2024 3:38 AM EDT [facility] Plasma 10/11/2024 3:02 AM EDT 10/11/2024 3:08 AM EDT us Eileen Schroeder MD, PhD LAB BLOOD ORDERABLES Final Result Performing Organization Address [facility] Co de Phone Number [facility] [address] * Magnesium (10/11/2024 3:02 AM EDT) Magnesium 2.0 1.5 - 2.5 mg/dL 10/11/2024 3:38 AM EDT [facility] Plasma 10/11/2024 3:02 AM EDT 10/11/2024 3:08 AM EDT Eileen Schroeder MD, PhD LAB BLOOD ORDERABLES Final Result [facility] [address] [place] [address], [facility] * (ABNORMAL) Renal Function Panel w/EGFR (10/11/2024 3:02 AM EDT) Sodium 134 133 - 146 mmol/L 10/11/2024 3:38 AM EDT [facility] Potassium 3.6 3.5 - 5.3 mmol/L 10/11/2024 3:38 AM EDT [facility] Chloride 108 98 - 110 mmol/L 10/11/2024 3:38 AM EDT [facility] CO2 16(L) 21 - 33 mmol/L 10/11/2024 3:38 AM EDT [facility] Anion Gap 10 3 - 16 mmol/L 10/11/2024 3:38 AM EDT [facility] BUN 49(H) 7 - 25 mg/dL 10/11/2024 3:38 AM EDT [facility] Creatinine 2.77(H) 0.60 - 1.30 mg/dL 10/11/2024 3:38 AM EDT [facility] Glucose 112(H) 70 - 100 mg/dL 10/11/2024 3:38 AM EDT [facility] Calcium 8.9 8.6 - 10.3 mg/dL 10/11/2024 3:38 AM EDT [facility] Phosphorus 3.5 2.1 - 4.7 mg/dL 10/11/2024 3:38 AM EDT [facility] Albumin 3.3(L) 3.5 - 5.7 g/dL 10/11/2024 3:38 AM EDT [facility] Osmolality, Calculated 292 278 - 305 mOsm/kg 10/11/2024 3:38 AM EDT [facility] EGFR 29 10/11/2024 3:38 AM EDT [facility] Comment:As of 2021, the estimated [...] BLOOD ORDERABLES Final Result Performing Organization Address City/State/[facility] Co de Phone Number [facility] [address] * (ABNORMAL) CBC (10/11/2024 3:02 AM EDT) WBC 4.0 3.8 - 10.8 10E3/uL 10/11/2024 3:55 AM EDT [facility] RBC 2.11(L) 4.20 - 5.80 10E6/uL 10/11/2024 3:55 AM EDT [facility] Hemoglobin 7.7(L) 13.2 - 17.1 g/dL 10/11/2024 3:55 AM EDT [facility] Hematocrit 21.2(L) 38.5 - 50.0 % 10/11/2024 3:55 AM EDT [facility] MCV 100.5(H) 80.0 - 100.0 fL 10/11/2024 3:55 AM EDT [facility] MCH 36.4(H) 27.0 - 33.0 pg 10/11/2024 3:55 AM EDT [facility] MCHC 36.2(H) 32.0 - 36.0 g/dL 10/11/2024 3:55 AM EDT [facility] RDW 17.9(H) 11.0 - 15.0 % 10/11/2024 3:55 AM EDT [facility] Platelets 32(L) 140 - 400 10E3/uL 10/11/2024 3:55 AM EDT [facility] Comment: Specimen checked for clots. None detected. Slide Reviewed for PLT Clumps. None Seen. Platelet Estimate Decreased 10/11/2024 3:55 AM EDT [facility] MPV 8.1 7.5 - 11.5 fL 10/11/2024 3:55 AM EDT [facility] Whole Blood 10/11/2024 3:02 AM EDT 10/11/2024 3:08 AM EDT Narrative [facility] - 10/11/2024 3:55 AM EDT Peripheral blood smear was scanned per review criteria approved by the laboratory anesthesiology medical doctor. us Eileen Schroeder MD, PhD LAB BLOOD ORDERABLES Final Result [facility] [address] [facility]. [address] * Vancomycin, random (10/11/2024 3:02 AM EDT) Vancomycin Random 13.4 ug/mL 10/11/2024 3:37 AM EDT [facility] Comment:Reference range not established for this test. Plasma 10/11/2024 3:02 AM EDT 10/11/2024 3:08 AM EDT us Jodi FreireD LAB BLOOD ORDERABLES Final Result Performing Organization Address City/[facility]/ZIP Co de Phone Number [facility] [address] [facility]. [address] * IR Paracentesis incl imaging guide [...] diagnostic and therapeutic paracentesis. Bakari Wahl CNP, Mechanical Maintenance Technician Procedure and Findings: The procedure was [...] Using ultrasound guidance, a 10 cm, 5-F COH Centesis catheter was placed into the right [...] for diagnostic andtherapeutic paracentesis. Bakari Wahl CNP, Mechanical Maintenance Technician Procedure and Findings: The procedure was [...] Using ultrasound guidance, a 10 cm, 5-F COH Centesis catheter was placedinto the right lower [...] 10/10/2024 3:31 PM EDT Chari Vanegas MD [facility] IR ORDERABLES Final Result * Stress Testing Lab - scan (10/10/2024 3:08 PM EDT) [facility] - NO RESULTS Final Res ult * (ABNORMAL) Body fluid cell count (10/10/2024 1:51 PM EDT) Color, Fluid Yellow(A) Colorless, Pale Yellow 10/10/2024 5:29 PM EDT [facility] Clarity, Fluid Clear 10/10/2024 5:29 PM EDT [facility] Neutrophil %, Fluid 9 % 10/10/2024 5:29 PM EDT [facility] Lymphocytes %, Fluid 13 % 10/10/2024 5:29 PM EDT [facility] Mesothelial %, Fluid 6 % 10/10/2024 5:29 PM EDT [facility] Macrophage %, Fluid 72 % 10/10/2024 5:29 PM EDT [facility] RBC, Fluid 2,662 /uL 10/10/2024 4:41 PM EDT [facility] Total Nucleated Cells, Fluid 89 /uL 10/10/2024 4:41 PM EDT [facility] Comment:Total Nucleated Cell s represent WBCs and other nucleated cells in the fluid such as lining cells. Ascitic Fluid ABDOMEN / Unknown 1:51 PM EDT 10/10/2024 3:56 PM EDT Gerri Peterson MD BODY FLUIDS AND STOOLS ORDERABL ES Final Result Performing Organization Address City/[facility]/ZIP Co de Phone Number [facility] [address] [facility]. [address] * Body Fluid Culture plus Stain (10/10/2024 1:51 PM EDT) Gram Stain Result Cytospin Results: [facility] Gram Stain Result Polymorphonuclear Leukocytes Seen; [facility] Gram Stain Result No Organisms Seen; [facility] Culture Result No Growth After 5 Days [facility] Fluid ABDOMEN / Unknown 10/10/2024 1:51 PM EDT 10/10/2024 3:56 PM EDT Gerri Peterson MD MICROBIOLOGY - GENERAL ORDERABL ES Final Result [facility] [address] [facility]. [address] * UPPER GI ENDOSCOPY (10/10/2024 11:48 AM EDT) 10/10/2024 11:4 8 AM EDT Narrative [facility] - 10/10/2024 12:34 PM EDT [id number] Procedure Date: 10/10/2024 11:48 AM Patient Name: Julien Gilbert Date of : 1985 Admit Type: Inpatient Age: 39 Gender: Male Note Status: Finalized Attending MD: Lino Soto MD, [id number] Procedure: Upper GI endoscopy Indications: Gastroesopahgeal variceal [...] verified by the physician, the nurse, the corporate event planner and the compliance technician in the pre-procedure area in the [...] to hypotension Procedure Code(s): --- Professional --- 11075, GC, Esophagogastroduodenoscopy, flexible, transoral; diagnostic, including collection of specimen(s) by brushing or washing, when performed (separate procedure) Diagnosis Code(s): --- Professional --- I85.00, Esophageal varices without bleeding K76.6, Portal hypertension K31.89, Other diseases of stomach and duodenum CPT copyright 2022 [employer]. All rights reserved. The codes documented in this report are preliminary and upon coder operator review may be revised to meet [...] In: 12:10:16 PM Scope Out: 12:17:[address] [place] [address], [facility] us Provider Not In System PROCEDURE/MINOR SURGICAL ORDERABLES Final Result Performing Organization Address City/[facility] Co de Phone Number [facility] * (ABNORMAL) Protime-INR (10/10/2024 5:23 AM EDT) Protime 23.9(H) 12.1 - 15.1 seconds 10/10/2024 6:11 AM EDT [facility] INR 2.1(H) 0.9 - 1.1 10/10/2024 6:11 AM EDT [facility] Comment: RECOMMENDED THERAPEUTIC RANGES USING INR : Stable oral anticoagulant therapy: 2.0 - 3.0 Mechanical prosthetic heart valve: 2.5 - 3.5 Recurrent acute myocardial infarction: 2.5 - 3.5 Plasma 10/10/2024 5:23 AM EDT 10/10/2024 5:50 AM EDT us Eileen Schroeder MD, PhD LAB BLOOD ORDERABLES Final Result Performing Organization Address City/[facility]/ZIP Co de Phone Number [facility] [address] [place] [address] * (ABNORMAL) Hepatic Function Panel (10/10/2024 5:23 AM EDT) Total Bilirubin 8.6(H) 0.0 - 1.5 mg/dL 10/10/2024 6:21 AM EDT [facility] Bilirubin, Direct 4.65(H) 0.00 - 0.40 mg/dL 10/10/2024 6:21 AM EDT [facility] AST 40(H) 13 - 39 U/L 10/10/2024 6:21 AM EDT [facility] ALT 22 7 - 52 U/L 10/10/2024 6:21 AM EDT [facility] Alkaline Phosphatase 118 36 - 125 U/L 10/10/2024 6:21 AM EDT [facility] Total Protein 4.6(L) 6.4 - 8.9 g/dL 10/10/2024 6:21 AM EDT [facility] Albumin 3.3(L) 3.5 - 5.7 g/dL 10/10/2024 6:21 AM EDT [facility] Bilirubin, Indirect 3.95(H) 0.00 - 1.10 mg/dL 10/10/2024 6:21 AM EDT [facility] Plasma 10/10/2024 5:23 AM EDT 10/10/2024 5:50 AM EDT Eileen Schroeder MD, PhD LAB BLOOD ORDERABLES Final Result Performing Organization Address City/[facility]/ZIP Co de Phone Number [facility] [address] * Magnesium (10/10/2024 5:23 AM EDT) Magnesium 1.9 1.5 - 2.5 mg/dL 10/10/2024 6:21 AM EDT [facility] Plasma 10/10/2024 5:23 AM EDT 10/10/2024 5:50 AM EDT Eileen Schroeder MD, PhD LAB BLOOD ORDERABLES Final Result [facility] [address] * (ABNORMAL) Renal Function Panel w/EGFR (10/10/2024 5:23 AM EDT) Sodium 135 133 - 146 mmol/L 10/10/2024 6:21 AM EDT [facility] Potassium 3.6 3.5 - 5.3 mmol/L 10/10/2024 6:21 AM EDT [facility] Chloride 108 98 - 110 mmol/L 10/10/2024 6:21 AM EDT [facility] CO2 17(L) 21 - 33 mmol/L 10/10/2024 6:21 AM EDT [facility] Anion Gap 10 3 - 16 mmol/L 10/10/2024 6:21 AM EDT [facility] BUN 53(H) 7 - 25 mg/dL 10/10/2024 6:21 AM EDT [facility] Creatinine 2.85(H) 0.60 - 1.30 mg/dL 10/10/2024 6:21 AM EDT [facility] Glucose 113(H) 70 - 100 mg/dL 10/10/2024 6:21 AM EDT [facility] Calcium 9.0 8.6 - 10.3 mg/dL 10/10/2024 6:21 AM EDT [facility] Phosphorus 3.3 2.1 - 4.7 mg/dL 10/10/2024 6:21 AM EDT [facility] Albumin 3.3(L) 3.5 - 5.7 g/dL 10/10/2024 6:21 AM EDT [facility] Osmolality, Calculated 295 278 - 305 mOsm/kg 10/10/2024 6:21 AM EDT [facility] EGFR 28 10/10/2024 6:21 AM EDT [facility] Comment:As of 2021, the estimated [...] MD, PhD LAB BLOOD ORDERABLES Final Result [facility] [address] [place] [address], [facility] * (ABNORMAL) CBC (10/10/2024 5:23 AM EDT) WBC 5.1 3.8 - 10.8 10E3/uL 10/10/2024 6:14 AM EDT [facility] RBC 2.04(L) 4.20 - 5.80 10E6/uL 10/10/2024 6:14 AM EDT [facility] Hemoglobin 7.3(L) 13.2 - 17.1 g/dL 10/10/2024 6:14 AM EDT [facility] Hematocrit 20.6(L) 38.5 - 50.0 % 10/10/2024 6:14 AM EDT [facility] MCV 101.2(H) 80.0 - 100.0 fL 10/10/2024 6:14 AM EDT [facility] MCH 36.0(H) 27.0 - 33.0 pg 10/10/2024 6:14 AM EDT [facility] MCHC 35.5 32.0 - 36.0 g/dL 10/10/2024 6:14 AM EDT [facility] RDW 17.6(H) 11.0 - 15.0 % 10/10/2024 6:14 AM EDT [facility] Platelets 39(L) 140 - 400 10E3/uL 10/10/2024 6:14 AM EDT [facility] Comment: CNV Specimen checked for clots. None detected. MPV 9.8 7.5 - 11.5 fL 10/10/2024 6:14 AM EDT [facility] Whole Blood 10/10/2024 5:23 AM EDT 10/10/2024 5:51 AM EDT us Eileen Schroeder MD, PhD LAB BLOOD ORDERABLES Final Result [facility] [address] * Vancomycin, random (10/10/2024 5:23 AM EDT) Vancomycin Random 16.4 ug/mL 10/10/2024 6:22 AM EDT [facility] Comment:Reference range not established for this test. Plasma 10/10/2024 5:23 AM EDT 10/10/2024 5:51 AM EDT us Jodi Ortiz PharmD LAB BLOOD ORDERABLES Final Result [facility] [address] * ECHO STRESS W/ CONTRAST (10/09/2024 4:37 PM EDT) Anatomical Region Laterality Modality Chest Ultrasound 10/09/2024 2:40 PM EDT Narrative 10/09/2024 6:45 PM EDT * [facility]* [address] [place] [address] Stress Echocardiogram Patient: Julien Gilbert Room: 8142 Height: 76in MR Number: [id number] : 1985 Weight: 262lb Account: [id number] Gender: M BP: 125 / 77 Study Date: 10/09/2024 Age: 39 BSA: 2.48m^2 Referring physician: Gerri Peterson Interpreting physician: Tonya Henriquez MD FELLOW Lisa Jha MD PERFORMING Tonya Henriquez MD BONE COOKING OPERATOR [employer] ORDERING Gerri Peterson REFERRING [...] was augmented by the addition of hand heel caser and leg lifts. The infusion was terminated [...] at baseline or with provocation, shows no agqrv-ya-rycu atrial level shunt. - Pulmonary arteries: Systolic [...] at baseline or with provocation, shows no rqxyb-nb-smgq atrial level shunt. Pulmonary artery: - Systolic [...] at baseline or with provocation, shows no ciooy-ru-wpii atrial level shunt. Pericardium: - There is [...] peak heart rate and blood pressure was 97374do Hg/min. Stress testing did not produce any [...] Reviewed and confirmed by Tonya Henriquez MD [id number] Procedure Note Tonya Henriquez MD - 10/09/2024 * [facility]* [address] [place] [id number] Stress Echocardiogram Patient: Julien Gilbert Room: 8142 Height: 76in MR Number: [id number] : 1985 Weight: 262lb Account: [id number] Gender: M BP: 125 / 77 Study Date: 10/09/2024 Age: 39 BSA: 2.48m^2 Referring physician: Gerri Peterson Interpreting physician: Tonya Henriquez MD FELLOW Lisa Jha MD PERFORMING Tonya Henriquez MD BONE COOKING OPERATOR [employer] Askanda REFERRING Gerri Peterson ATTENDING Fouzia Rene ADMITTING Angie Blanchard Procedure:STRESS ECHO - PHARMACOLOGIC Order: Indications: Pre-Operative Clearance (Z01.818). PMH: EtOH Use Disorder. Risk factors: Hypertension. Dyslipidemia. Study data: Height: 76in. 193cm. Weight: 262lb. 118.8kg. The previousstudy was not available, so comparison was made to the report of 07/15/2024. Study status: Routine. Procedure: [facility] A baseline ECG was recorded. Intravenous [...] was augmented by the addition of hand heel caser and leg lifts. The infusion was terminated [...] at baseline or with provocation, shows no stgqg-pi-athf atrial level shunt. - Pulmonary arteries: Systolic [...] study at baseline or with provocation, showsno cghok-mc-igtl atrial level shunt. Pulmonary artery: - Systolic [...] at baseline or with provocation, shows no usdlo-rn-qusr atrial level shunt. Pericardium: - There is [...] heart rate). The maximal predicted heart rate [id number]. The target heart rate was 152bpm. The target heart rate was achieved.The heart rate response to stress is normal. There is a normal resting blood pressure with an appropriate response to stress. The rate-pressureproduct for the peak heart rate and blood pressure was 15590js Hg/min. Stress testing did not produce any [...] Reviewed and confirmed by Tonya Henriquez MD [id number] us Gerri Peterson MD CV ECHO ORDERABLES Final Result * (ABNORMAL) Renal Function Panel w/EGFR, STAT (10/09/2024 1:05 PM EDT) Sodium 134 133 - 146 mmol/L 10/09/2024 2:10 PM EDT [facility] Potassium 3.7 3.5 - 5.3 mmol/L 10/09/2024 2:10 PM EDT [facility] Chloride 105 98 - 110 mmol/L 10/09/2024 2:10 PM EDT [facility] CO2 17(L) 21 - 33 mmol/L 10/09/2024 2:10 PM EDT [facility] Anion Gap 12 3 - 16 mmol/L 10/09/2024 2:10 PM EDT [facility] BUN 53(H) 7 - 25 mg/dL 10/09/2024 2:10 PM EDT [facility] Creatinine 2.89(H) 0.60 - 1.30 mg/dL 10/09/2024 2:10 PM EDT [facility] Glucose 108(H) 70 - 100 mg/dL 10/09/2024 2:10 PM EDT [facility] Calcium 9.3 8.6 - 10.3 mg/dL 10/09/2024 2:10 PM EDT [facility] Phosphorus 3.4 2.1 - 4.7 mg/dL 10/09/2024 2:10 PM EDT [facility] Albumin 3.6 3.5 - 5.7 g/dL 10/09/2024 2:10 PM EDT [facility] Osmolality, Calculated 293 278 - 305 mOsm/kg 10/09/2024 2:10 PM EDT [facility] EGFR 27 10/09/2024 2:10 PM EDT [facility] Comment:As of 2021, the estimated [...] MD, PhD LAB BLOOD ORDERABLES Final Result [facility] [address] [place] [address], [facility] * (ABNORMAL) Renal Function Panel w/EGFR, STAT (10/09/2024 8:14 AM EDT) Sodium 134 133 - 146 mmol/L 10/09/2024 8:47 AM T [facility] Potassium 3.4(L) 3.5 - 5.3 mmol/L 10/09/2024 8:47 AM T [facility] Chloride 107 98 - 110 mmol/L 10/09/2024 8:47 AM EDT [facility] CO2 17(L) 21 - 33 mmol/L 10/09/2024 8:47 AM EDT [facility] Anion Gap 10 3 - 16 mmol/L 10/09/2024 8:47 AM T [facility] BUN 54(H) 7 - 25 mg/dL 10/09/2024 8:47 AM [facility] Creatinine 3.04(H) 0.60 - 1.30 mg/dL 10/09/2024 8:47 AM [facility] Glucose 124(H) 70 - 100 mg/dL 10/09/2024 8:47 AM [facility] Calcium 9.0 8.6 - 10.3 mg/dL 10/09/2024 8:47 AM [facility] Phosphorus 3.5 2.1 - 4.7 mg/dL 10/09/2024 8:47 AM [facility] Albumin 3.4(L) 3.5 - 5.7 g/dL 10/09/2024 8:47 AM [facility] Osmolality, Calculated 294 278 - 305 mOsm/kg 10/09/2024 8:47 AM [facility] EGFR 26 10/09/2024 8:47 AM [facility] Comment:As of 2021, the estimated [...] MD LAB BLOOD ORDERABLES Final Resu lt [facility] [address] * Prepare RBC, leukoreduced, 1 Units (10/09/2024 6:16 AM EDT) Product Code C2419F61 [facility] Unit Number [id number] [facility] Dispense Status Presumed Transfused_PT [facility] Blood Expiration Date [id number] [facility] Coding System [id number] [facility] Product us Eileen Schroeder MD, PhD BLOOD BANK PRODUCT OR DERABLES Final Result Performing Organization Address [facility]/ZIP Co de Phone Number [facility] * (ABNORMAL) Protime-INR (10/09/2024 4:59 AM EDT) Protime 26.5(H) 12.1 - 15.1 seconds 10/09/2024 6:30 AM EDT [facility] INR 2.4(H) 0.9 - 1.1 10/09/2024 6:30 AM EDT [facility] Comment: RECOMMENDED THERAPEUTIC RANGES USING INR : Stable oral anticoagulant therapy: 2.0 - 3.0 Mechanical prosthetic heart valve: 2.5 - 3.5 Recurrent acute myocardial infarction: 2.5 - 3.5 Plasma 10/09/2024 4:59 AM EDT 10/09/2024 5:55 AM EDT Eileen Schroeder MD, PhD LAB BLOOD ORDERABLES Final Result Performing Organization Address City/[facility]/ZIP Co de Phone Number [facility] [address] * (ABNORMAL) Hepatic Function Panel (10/09/2024 4:59 AM EDT) Total Bilirubin 9.0(H) 0.0 - 1.5 mg/dL 10/09/2024 6:42 AM EDT [facility] Bilirubin, Direct 4.60(H) 0.00 - 0.40 mg/dL 10/09/2024 6:42 AM EDT [facility] AST 38 13 - 39 U/L 10/09/2024 6:42 AM EDT [facility] ALT 18 7 - 52 U/L 10/09/2024 6:42 AM EDT [facility] Alkaline Phosphatase 122 36 - 125 U/L 10/09/2024 6:42 AM EDT [facility] Total Protein 4.8(L) 6.4 - 8.9 g/dL 10/09/2024 6:42 AM EDT [facility] Albumin 3.4(L) 3.5 - 5.7 g/dL 10/09/2024 6:42 AM EDT [facility] Bilirubin, Indirect 4.40(H) 0.00 - 1.10 mg/dL 10/09/2024 6:42 AM EDT [facility] Plasma 10/09/2024 4:59 AM EDT 10/09/2024 5:57 AM EDT Eileen Schroeder MD, PhD LAB BLOOD ORDERABLES Final Result [facility] [address] * Magnesium (10/09/2024 4:59 AM EDT) Magnesium 1.8 1.5 - 2.5 mg/dL 10/09/2024 6:42 AM EDT [facility] Plasma 10/09/2024 4:59 AM EDT 10/09/2024 5:57 AM EDT Eileen Schroeder MD, PhD LAB BLOOD ORDERABLES Final Result [facility] [address] [place] [address], [facility] * (ABNORMAL) Renal Function Panel w/EGFR (10/09/2024 4:59 AM EDT) Sodium 134 133 - 146 mmol/L 10/09/2024 6:42 AM EDT [facility] Potassium 3.3(L) 3.5 - 5.3 mmol/L 10/09/2024 6:42 AM EDT [facility] Chloride 107 98 - 110 mmol/L 10/09/2024 6:42 AM EDT [facility] CO2 16(L) 21 - 33 mmol/L 10/09/2024 6:42 AM EDT [facility] Anion Gap 11 3 - 16 mmol/L 10/09/2024 6:42 AM EDT [facility] BUN 56(H) 7 - 25 mg/dL 10/09/2024 6:42 AM EDT [facility] Creatinine 2.98(H) 0.60 - 1.30 mg/dL 10/09/2024 6:42 AM EDT [facility] Glucose 112(H) 70 - 100 mg/dL 10/09/2024 6:42 AM EDT [facility] Calcium 9.0 8.6 - 10.3 mg/dL 10/09/2024 6:42 AM EDT [facility] Phosphorus 3.5 2.1 - 4.7 mg/dL 10/09/2024 6:42 AM EDT [facility] Albumin 3.4(L) 3.5 - 5.7 g/dL 10/09/2024 6:42 AM EDT [facility] Osmolality, Calculated 294 278 - 305 mOsm/kg 10/09/2024 6:42 AM EDT [facility] EGFR 26 10/09/2024 6:42 AM EDT [facility] Comment:As of 2021, the estimated [...] MD, PhD LAB BLOOD ORDERABLES Final Result [facility] [address] [address], [facility] * (ABNORMAL) CBC (10/09/2024 4:59 AM EDT) WBC 4.6 3.8 - 10.8 10E3/uL 10/09/2024 6:21 AM EDT [facility] RBC 2.17(L) 4.20 - 5.80 10E6/uL 10/09/2024 6:21 AM EDT [facility] Hemoglobin 8.0(L) 13.2 - 17.1 g/dL 10/09/2024 6:21 AM EDT [facility] Hematocrit 21.8(L) 38.5 - 50.0 % 10/09/2024 6:21 AM EDT [facility] MCV 100.5(H) 80.0 - 100.0 fL 10/09/2024 6:21 AM EDT [facility] MCH 36.7(H) 27.0 - 33.0 pg 10/09/2024 6:21 AM EDT [facility] MCHC 36.5(H) 32.0 - 36.0 g/dL 10/09/2024 6:21 AM EDT [facility] RDW 18.1(H) 11.0 - 15.0 % 10/09/2024 6:21 AM EDT [facility] Platelets 36(L) 140 - 400 10E3/uL 10/09/2024 6:21 AM EDT [facility] Comment:Specimen checked for clots. None detected. MPV 8.3 7.5 - 11.5 fL 10/09/2024 6:21 AM EDT [facility] Whole Blood 10/09/2024 4:59 AM EDT 10/09/2024 5:56 AM EDT us Eileen Schroeder MD, PhD LAB BLOOD ORDERABLES Final Result Performing Organization Address City/[facility]/ZIP Co de Phone Number [facility] [address] * Renal Tx Recipient (10/09/2024 4:59 AM EDT) Pathologist [facility] Renal Transplant Recipient The request and specimen(s) for this test have been received and transported to the [facility] at [address] [place] [address]. The [facility] will report results directly to the client. 10/09/2024 7:26 AM EDT [facility] Blood 10/09/2024 4:59 AM EDT 10/09/2024 7:26 AM EDT us Aaron Gonzalez MD LAB BLOOD ORDERABLES Final Resu lt Performing Organization Address [facility] Co de Phone Number [facility] [address] * Vancomycin, random (10/09/2024 4:59 AM EDT) Pathologist [facility] Vancomycin Random 11.0 ug/mL 10/09/2024 6:33 AM EDT [facility] Comment:Reference range not established for this test. Plasma 10/09/2024 4:59 AM EDT 10/09/2024 5:56 AM EDT us Jodi FreireD LAB BLOOD ORDERABLES Final Result Performing Organization Address [facility] Co de Phone Number [facility] [address] * (ABNORMAL) CBC (10/08/2024 5:52 PM EDT) WBC 5.6 3.8 - 10.8 10E3/uL 10/08/2024 6:52 PM EDT [facility] RBC 2.38(L) 4.20 - 5.80 10E6/uL 10/08/2024 6:52 PM EDT [facility] Hemoglobin 8.3(L) 13.2 - 17.1 g/dL 10/08/2024 6:52 PM EDT [facility] Hematocrit 24.6(L) 38.5 - 50.0 % 10/08/2024 6:52 PM EDT [facility] MCV 103.2(H) 80.0 - 100.0 fL 10/08/2024 6:52 PM EDT [facility] MCH 34.7(H) 27.0 - 33.0 pg 10/08/2024 6:52 PM EDT [facility] MCHC 33.6 32.0 - 36.0 g/dL 10/08/2024 6:52 PM EDT [facility] RDW 18.5(H) 11.0 - 15.0 % 10/08/2024 6:52 PM EDT [facility] Platelets 39(L) 140 - 400 10E3/uL 10/08/2024 6:52 PM EDT [facility] Comment:CNV MPV 8.1 7.5 - 11.5 fL 10/08/2024 6:52 PM EDT [facility] Whole Blood 10/08/2024 5:52 PM EDT 10/08/2024 6:45 PM EDT us Eileen Schroeder MD, PhD LAB BLOOD ORDERABLES Final Result [facility] [address] * Transfuse RBC Has consent been [...] Mumps IgG Positive 10/08/2024 11:39 AM EDT [facility] MUMPS IGG NUM 99.00(H) 0.0 - 8.9 U/mL 10/08/2024 11:39 AM EDT [facility] Rubella IgG Scr Positive 10/08/2024 11:40 AM EDT [facility] RUB NUM 4.15(H) 0.00 - 0.89 INDEX 10/08/2024 11:40 AM EDT [facility] Rubeola Ab, IgG Positive 10/08/2024 11:39 AM EDT [facility] RUB IGG NUM 273.00(H) 0.00 - 13.40 U/mL 10/08/2024 11:39 AM EDT [facility] Serum 10/08/2024 10:2 5 AM EDT 10/08/2024 10:49 AM EDT Narrative [facility] - 10/08/2024 11:40 AM EDT [...] MD LAB BLOOD ORDERABLES Final Resu lt [facility] [address] [place] [address], [facility] * (ABNORMAL) Hemoglobin A1C (10/08/2024 10:25 AM EDT) Hemoglobin A1C 3.7(L) 4.0 - 5.6 % 10/09/2024 1:22 PM EDT [facility] Comment: Hemoglobin A1c Interpretation Guidelines: [...] MD LAB BLOOD ORDERABLES Final Resu lt [facility] [address] * (ABNORMAL) Vitamin D 25 Hydroxy (10/08/2024 10:25 AM EDT) Vit D, 25-Hydroxy 7.1(L) 30.0 - 100.0 ng/mL 10/08/2024 11:36 AM EDT [facility] Comment: Vitamin D deficiency has been defined by the [place] of Medicine (IOM) and an Endocrine Society [...] ORDERABLES Final Resu lt Performing Organization Address City/[facility]/ZIP Co de Phone Number [facility] [address] [facility]. [address] * Iron Studies (Iron + TIBC) (10/08/2024 10:25 AM EDT) Iron 81 50 - 212 ug/dL 10/08/2024 11:23 AM EDT [facility] % Iron Saturation SEE COMMENT 15.0 - 55.0 % 10/08/2024 11:23 AM EDT [facility] Comment:Unable to calculate result because contributing result outside reportable range.. TIBC SEE COMMENT 261 - 462 ug/dL 10/08/2024 11:23 AM EDT [facility] Comment:Unable to calculate result because contributing result outside reportable range.. Serum 10/08/2024 10:2 5 AM EDT 10/08/2024 10:49 AM EDT Gerri Peterson MD LAB BLOOD ORDERABLES Final Resu lt Performing Organization Address [facility]/ZIP Co de Phone Number [facility] [address] * (ABNORMAL) Ferritin (10/08/2024 10:25 AM EDT) Ferritin 706.9(H) 23.9 - 336.2 ng/mL 10/08/2024 11:35 AM EDT [facility] Serum 10/08/2024 10:2 5 AM EDT 10/08/2024 10:49 AM EDT Gerri Peterson MD LAB BLOOD ORDERABLES Final Resu lt [facility] [address] [facility] * QuantiFERON TB2 Ag (10/08/2024 10:25 AM EDT) QuantiFERON TB2 Ag Value 0.07 10/10/2024 10:41 AM EDT [facility] Plasma 10/08/2024 10:2 5 AM EDT 10/08/2024 11:05 AM EDT Gerri Peterson MD LAB BLOOD ORDERABLES Final Resu lt [facility] [address] [facility] * QuantiFERON TB1 Ag (10/08/2024 10:25 AM EDT) QuantiFERON TB1 Ag Value 0.06 10/10/2024 10:41 AM EDT [facility] Plasma 10/08/2024 10:2 5 AM EDT 10/08/2024 11:05 AM EDT Result [facility] Gerri Peterson MD LAB BLOOD ORDERABLES Final Resu lt Performing Organization Address City/[facility]/ZIP Co de Phone Number [facility] [address] [facility] * QuantiFERON Nil (10/08/2024 10:25 AM EDT) QuantiFERON Nil 0.06 10:41 AM EDT [facility] Plasma 10/08/2024 10:2 5 AM EDT 10/08/2024 11:05 AM EDT Result [facility] Gerri Peterson MD LAB BLOOD ORDERABLES Final Resu lt [facility] [address] [facility] * QuantiFERON Mitogen (10/08/2024 10:25 AM EDT) QuantiFERON Interpretation Negative Negative 10/10/2024 10:41 AM EDT [facility] Comment:Negative result geovanny cates M. tuberculosis infection is NOT likely. Negative results do not preclude tuberculosis infection (especially in immunosuppressed patients). Negative results have a TB antigen minus Nil value less than 0.35 IU/mL. In cases with high suspicion of disease, retesting or additional testing with medical evaluation may be useful. QuantiFERON Mitogen 4.87 10/10 10:41 AM EDT [facility] Plasma 10/08/2024 10:2 5 AM EDT 10/08/2024 11:05 AM EDT Narrative [facility] - 10/10/2024 10:41 AM EDT [...] MD LAB BLOOD ORDERABLES Final Resu lt [facility] [address] * Reticulocyte Count, Auto (10/08/2024 7:41 AM EDT) Retic Ct Pct 1.35 0.50 - 2.00 % 10/08/2024 9:12 AM EDT [facility] Retic Ct Abs 26,190 25,000 - 90,000 /uL 10/08/2024 9:14 AM EDT [facility] Immature Retic Fract 0.37 0.09 - 0.56 10/08/2024 9:12 AM EDT [facility] Whole Blood 10/08/2024 7:41 AM EDT 10/08/2024 8:51 AM EDT Angie Blanchard MD LAB BLOOD ORDERABLES Final Res ult [facility] [address] [facility] * (ABNORMAL) Haptoglobin (10/08/2024 7:41 AM EDT) Haptoglobin <30(L) 44 - 215 mg/dL 10/08/2024 8:53 AM EDT [facility] Serum 10/08/2024 7:41 AM EDT 10/08/2024 7:51 AM EDT Eileen Schroeder MD, PhD LAB BLOOD ORDERABLES Final Result [facility] [address] [place] [address], [facility] * (ABNORMAL) CBC - Post Transfusion (10/08/2024 7:41 AM EDT) WBC 3.7(L) 3.8 - 10.8 10E3/uL 10/08/2024 8:34 AM EDT [facility] RBC 1.94(L) 4.20 - 5.80 10E6/uL 10/08/2024 8:34 AM EDT [facility] Hemoglobin 7.1(L) 13.2 - 17.1 g/dL 10/08/2024 8:34 AM EDT [facility] Hematocrit 20.0(L) 38.5 - 50.0 % 10/08/2024 8:34 AM EDT [facility] MCV 103.1(H) 80.0 - 100.0 fL 10/08/2024 8:34 AM EDT [facility] MCH 36.5(H) 27.0 - 33.0 pg 10/08/2024 8:34 AM EDT [facility] MCHC 35.4 32.0 - 36.0 g/dL 10/08/2024 8:34 AM EDT [facility] RDW 17.2(H) 11.0 - 15.0 % 10/08/2024 8:34 AM EDT [facility] Platelets 37(L) 140 - 400 10E3/uL 10/08/2024 8:34 AM EDT [facility] Comment: Specimen checked for clots. None detected. Slide Reviewed for PLT Clumps. None Seen. _Platelet Morphology Normal _Platelets Appear Decreased MPV 8.7 7.5 - 11.5 fL 10/08/2024 8:34 AM EDT [facility] Whole Blood 10/08/2024 7:41 AM EDT 10/08/2024 7:52 AM EDT Narrative [facility] - 10/08/2024 8:34 AM EDT Post-transfusion Eileen Schroeder MD, PhD LAB BLOOD ORDERABLES Final Result [facility] [address] * Antibody Screen (10/08/2024 7:41 AM EDT) Antibody Screen Negative 10/08/2024 8:26 AM EDT [facility] Blood 10/08/2024 7:41 AM EDT 10/08/2024 7:57 AM EDT Narrative [facility] - 10/08/2024 8:32 AM EDT Testing performed by [facility] Transfusion Service Eileen Schroeder MD, PhD BLOOD BANK TEST ORDER PAL Final Result Performing Organization Address City/[facility]/ZIP Co de Phone Number [facility] [address] [facility]. [address] * ABO/Rh (10/08/2024 7:41 AM EDT) ABO Grouping O 10/08/2024 8:14 AM EDT [facility] Rh Type Positive 10/08/2024 8:14 AM EDT [facility] Blood 10/08/2024 7:41 AM EDT 10/08/2024 7:57 AM EDT Eileen Schroeder MD, PhD BLOOD BANK TEST ORDER PAL Final Result [facility] [address] * (ABNORMAL) Lactate dehydrogenase (10/08/2024 5:36 AM EDT) LD 102(L) 110 - 270 U/L 10/08/2024 8:20 AM EDT [facility] Plasma 10/08/2024 5:36 AM EDT 10/08/2024 7:58 AM EDT Angie Blanchard MD LAB BLOOD ORDERABLES Final Res ult Performing Organization Address [facility] Co de Phone Number [facility] [address] [facility] * (ABNORMAL) Protime-INR (10/08/2024 5:36 AM EDT) Protime 26.9(H) 12.1 - 15.1 seconds 10/08/2024 6:11 AM EDT [facility] INR 2.4(H) 0.9 - 1.1 10/08/2024 6:11 AM EDT [facility] Comment: RECOMMENDED THERAPEUTIC RANGES USING INR : Stable oral anticoagulant therapy: 2.0 - 3.0 Mechanical prosthetic heart valve: 2.5 - 3.5 Recurrent acute myocardial infarction: 2.5 - 3.5 Plasma 10/08/2024 5:36 AM EDT 10/08/2024 5:52 AM EDT Eileen Schroeder MD, PhD LAB BLOOD ORDERABLES Final Result Performing Organization Address [facility] Co de Phone Number [facility] [address] [facility] * (ABNORMAL) Hepatic Function Panel (10/08/2024 5:36 AM EDT) Total Bilirubin 7.7(H) 0.0 - 1.5 mg/dL 10/08/2024 6:25 AM EDT [facility] Bilirubin, Direct 4.28(H) 0.00 - 0.40 mg/dL 10/08/2024 6:25 AM EDT [facility] AST 34 13 - 39 U/L 10/08/2024 6:25 AM EDT [facility] ALT 16 7 - 52 U/L 10/08/2024 6:25 AM EDT [facility] Alkaline Phosphatase 103 36 - 125 U/L 10/08/2024 6:25 AM EDT [facility] Total Protein 4.7(L) 6.4 - 8.9 g/dL 10/08/2024 6:25 AM EDT [facility] Albumin 3.5 3.5 - 5.7 g/dL 10/08/2024 6:25 AM EDT [facility] Bilirubin, Indirect 3.42(H) 0.00 - 1.10 mg/dL 10/08/2024 6:25 AM EDT [facility] Plasma 10/08/2024 5:36 AM EDT 10/08/2024 5:52 AM EDT us Eileen Schroeder MD, PhD LAB BLOOD ORDERABLES Final Result Performing Organization Address [facility]/ZIP Co de Phone Number [facility] [address] * Magnesium (10/08/2024 5:36 AM EDT) Magnesium 1.9 1.5 - 2.5 mg/dL 10/08/2024 6:25 AM EDT [facility] Plasma 10/08/2024 5:36 AM EDT 10/08/2024 5:52 AM EDT Eileen Schroeder MD, PhD LAB BLOOD ORDERABLES Final Result [facility] [address] * (ABNORMAL) Renal Function Panel w/EGFR (10/08/2024 5:36 AM EDT) Sodium 135 133 - 146 mmol/L 10/08/2024 6:25 AM EDT [facility] Potassium 3.2(L) 3.5 - 5.3 mmol/L 10/08/2024 6:25 AM EDT [facility] Chloride 106 98 - 110 mmol/L 10/08/2024 6:25 AM EDT [facility] CO2 17(L) 21 - 33 mmol/L 10/08/2024 6:25 AM EDT [facility] Anion Gap 12 3 - 16 mmol/L 10/08/2024 6:25 AM EDT [facility] BUN 61(H) 7 - 25 mg/dL 10/08/2024 6:25 AM EDT [facility] Creatinine 3.10(H) 0.60 - 1.30 mg/dL 10/08/2024 6:25 AM EDT [facility] Glucose 106(H) 70 - 100 mg/dL 10/08/2024 6:25 AM EDT [facility] Calcium 9.0 8.6 - 10.3 mg/dL 10/08/2024 6:25 AM EDT [facility] Phosphorus 4.0 2.1 - 4.7 mg/dL 10/08/2024 6:25 AM EDT [facility] Albumin 3.5 3.5 - 5.7 g/dL 10/08/2024 6:25 AM EDT [facility] Osmolality, Calculated 298 278 - 305 mOsm/kg 10/08/2024 6:25 AM EDT [facility] EGFR 25 10/08/2024 6:25 AM EDT [facility] Comment:As of 2021, the estimated [...] MD, PhD LAB BLOOD ORDERABLES Final Result [facility] [address] [place] [address], [facility] * (ABNORMAL) CBC (10/08/2024 5:36 AM EDT) WBC 3.2(L) 3.8 - 10.8 10E3/uL 10/08/2024 6:41 AM EDT [facility] RBC 1.86(L) 4.20 - 5.80 10E6/uL 10/08/2024 6:41 AM EDT [facility] Hemoglobin 6.9(L) 13.2 - 17.1 g/dL 10/08/2024 6:41 AM EDT [facility] Hematocrit 18.9(L) 38.5 - 50.0 % 10/08/2024 6:41 AM EDT [facility] MCV 101.6(H) 80.0 - 100.0 fL 10/08/2024 6:41 AM EDT [facility] MCH 36.9(H) 27.0 - 33.0 pg 10/08/2024 6:41 AM EDT [facility] MCHC 36.3(H) 32.0 - 36.0 g/dL 10/08/2024 6:41 AM EDT [facility] RDW 17.0(H) 11.0 - 15.0 % 10/08/2024 6:41 AM EDT [facility] Platelets 34(L) 140 - 400 10E3/uL 10/08/2024 6:41 AM EDT [facility] Comment: Specimen checked for clots. None detected. Slide Reviewed for PLT Clumps. None Seen. Platelet Estimate Decreased 10/08/2024 6:41 AM EDT [facility] MPV 8.4 7.5 - 11.5 fL 10/08/2024 6:41 AM EDT [facility] Whole Blood 10/08/2024 5:36 AM EDT 10/08/2024 5:53 AM EDT Narrative [facility] - 10/08/2024 6:41 AM EDT Peripheral blood smear was scanned per review criteria approved by the laboratory anesthesiology medical doctor. Eileen Schroeder MD, PhD LAB BLOOD ORDERABLES Final Result [facility] [address] [facility]. [address] * Vancomycin, random (10/08/2024 5:36 AM EDT) Vancomycin Random 16.0 ug/mL 10/08/2024 6:20 AM EDT [facility] Comment:Reference range not established for this test. Plasma 10/08/2024 5:36 AM EDT 10/08/2024 5:52 AM EDT us Jodi FreireD LAB BLOOD ORDERABLES Final Result Performing Organization Address City/[facility]/ZIP Co de Phone Number [facility] [address] [facility] * Urine Drug Confirmation (10/07/2024 10:50 PM EDT) BARBITURATES NOT PRESENT 10/09/2024 1:33 PM EDT [facility] BENZODIAZEPINES PRESENT 1:33 PM EDT [facility] Nordiazepam 3 ng/mL 10/09/2024 1:33 PM EDT [facility] Temazepam 6 ng/mL 10/09/2024 1:33 PM EDT [facility] CANNABINOIDS NOT PRESENT 10/09/2024 1:33 PM EDT [facility] MARINE SERVICES TECHNICIAN STIMULANTS NOT PRESENT 1:33 PM EDT [facility] OPIOID ANALGESICS PRESENT 025 1:33 PM EDT [facility] Oxycodone 300 ng/mL 10/09/2024 1:33 PM EDT [facility] Oxymorphone 32 ng/mL 10/09/2024 1:33 PM EDT [facility] Tramadol >1000 ng/mL 10/09/2024 1:33 PM EDT [facility] OPIOID ANTAGONISTS NOT PRESENT 10/09 1:33 PM EDT [facility] SEDATIVES/MUSCLE RELAXANTS NOT PRESENT 10/09/2024 1:33 PM EDT [facility] TRICYCLIC ANTIDEPRESSANTS NOT PRESENT 10/09/2024 1:33 PM EDT [facility] Urine 10/07/2024 10:5 0 PM EDT 10/08/2024 3:00 AM EDT Gerri Peterson MD URINE ORDERABLES Final Result Performing Organization Address [facility]/ZIP Co de Phone Number [facility] [address] * Giardia Cryptosporidium Antigens (10/07/2024 10:50 PM EDT) Cryptosporidium Ag Negative Negative 2024 7:59 AM EDT [facility] Giardia Ag Negative Negative 10/08/2024 7:59 AM EDT [facility] Comment: Detection of Giardia and Cryptosporidium antigen is more sensitive and specific than microscopy. Because antigens are shed continuously, repeat testing is rarely warranted. Feces 10/07/2024 10:5 0 PM EDT 10/08/2024 1:53 AM EDT Comment:F Bisi Hernandez DO MICROBIOLOGY - GENERAL ORDERABLE S Final Result Performing Organization Address [facility] Co de Phone Number [facility] [address] [place] [address]. [address] * (ABNORMAL) Urine Drug Screen Reflex to Confirmation (10/07/2024 10:50 PM EDT) Amphetamine, 500 ng/mL Cutoff Negative Negative 10/08/2024 3:00 AM EDT [facility] Barbiturates UR, 300 ng/mL Cutoff Negative Negative 10/08/2024 3:00 AM EDT [facility] Buprenorphine, 5 ng/mL Cutoff Negative Negative 10/08/2024 3:00 AM EDT [facility] Benzodiazepines UR, 300 ng/mL Cutoff Negative Negative 10/08/2024 3:00 AM EDT [facility] Cocaine UR, 300 ng/mL Cutoff Negative Negative 10/08/2024 3:00 AM EDT [facility] Methadone, UR, 300 ng/mL Cutoff Negative Negative 10/08/2024 3:00 AM EDT [facility] Opiates UR, 300 ng/mL Cutoff Negative Negative 10/08/2024 3:00 AM EDT [facility] Oxycodone, 100 ng/mL Cutoff Presumptive Positive(A) Negative 10/08/2024 3:00 AM EDT [facility] Tricyclic Antidepressants, 300 ng/mL Cutoff Negative Negative 10/08/2024 3:00 AM EDT [facility] Comment:This test has been d [...] Cutoff Negative Negative 10/08/2024 3:00 AM EDT [facility] Comment:This is a screening method only and may be associated with false positive and/or false negative results. Results are not definitive without additional confirmatory testing by mass spectrometry. Fentanyl, 2 ng/mL Cutoff Negative Negative 10/08/2024 3:00 AM EDT [facility] Comment:This test has been d [...] PM EDT 10/08/2024 2:08 AM EDT Narrative [facility] - 10/08/2024 3:00 AM EDT CONFIRMATION TO FOLLOW Gerri Peterson MD URINE ORDERABLES Final Result [facility] [address] [place] [address], [facility] * Comprehensive Drug Screen (10/07/2024 10:50 PM EDT) Creatinine, Ur CANCELED mg/dL 10/08/2024 7:09 AM EDT [facility] Comment:The released value 8 7.30 was canceled by YAQUELIN on 10/08/2024 07:09 BARBITURATES CANCELED [facility] Butalbital CANCELED [facility] Phenobarbital CANCELED [facility] Secobarbital CANCELED [facility] BENZODIAZEPINES CANCELED [facility] Alprazolam CANCELED [facility] Clonazepam CANCELED [facility] Diazepam CANCELED [facility] Alpha-Hydroxyalprazo mcknight CANCELED [facility] Lorazepam CANCELED [facility] Midazolam CANCELED [facility] Nordiazepam CANCELED [facility] Oxazepam CANCELED [facility] Temazepam CANCELED [facility] CANNABINOIDS CANCELED [facility] THC-COOH CANCELED [facility] MARINE SERVICES TECHNICIAN STIMULANTS CANCELED [facility] Cocaine Metabolite(benzoylec gonine) CANCELED [facility] Amphetamine [facility]ELED [facility] Methamphetamine CANCELED [facility] MDA CANCELED [facility] MDEA CANCELED [facility] Phencyclindine (PCP) CANCELED [facility] OPIOID ANALGESICS CANCELED [facility] Heroin Metabolite(6-RAMONA) CANCELED [facility] Codeine CANCELED [facility] Morphine CANCELED [facility] Hydrocodone [facility]CELED [facility] Hydromorphone [facility]CELED [facility] Oxycodone CANCELED [facility] Oxymorphone [facility] Meperidine CANCELED [facility] Normeperidine [facility]ELED [facility] Methadone CANCELED [facility] Methadone Metabolite (EDDP) CANCELED [facility] Tramadol CANCELED [facility] Fentanyl CANCELED [facility] Norfentanyl [facility]ELED [facility] Sufentanil CANCELED [facility] OPIOID ANTAGONISTS CANCELED [facility] Buprenorphine CANCELED [facility] Norbuprenorphine CANCELED [facility] Naltrexone CANCELED [facility] Naloxone CANCELED [facility] SEDATIVES/MUSCLE RELAXANTS CANCELED [facility] Carisoprodol CANCELED [facility] Meprobamate [facility] TRICYCLIC ANTIDEPRESSANTS [facility] Amitriptyline [facility] Clomipramine [facility] Desipramine [facility] Doxepin [facility] Imipramine [facility] Nortriptyline [facility] Urine Creatinine CANCELED mg/dL [facility] Nitrite [facility] Glutaraldehyde [facility]ED [facility] pH CANCELED 10/08/2024 7:09 AM EDT [facility] Comment:The released value 5 .6 was canceled by MABLEE on 10/08/2024 07:09 Specific [place] CANCELED 10/09/19 7:09 AM EDT [facility] Comment:The released value 1 .009 was canceled by MABLEE on 10/08/2024 07:09 Bleach CANCELED [facility] Pyridinium Chlorochromate CANCELED [facility] Urine 10/07/2024 10:5 0 PM EDT 10/08/2024 2:07 AM EDT Narrative [facility] - 10/08/2024 7:09 AM EDT See accn [id number] Gerri Peterson MD URINE ORDERABLES Edited Result - Final Performing Organization Address City/State/[facility] Co de Phone Number [facility] [address] * Ova and Parasite Comprehensive w/ Giardia/Crypto (10/07/2024 10:50 PM EDT) O & P Method: Concentration and Trichrome Stain [facility] Results No Amoeba, Ova, Or Parasites Seen. -- O and P examination of additional specimens is recommended only for symptomatic patients, immunosuppressed patients or those with an appropriate travel history. [facility] Feces FECES / Unknown 10/07/2024 1 0:50 PM EDT 10/08/2024 1:53 AM EDT Comment:F Bisi Hernandez DO MICROBIOLOGY - GENERAL ORDERABLE S Final Result Performing Organization Address City/[facility]/ZIP Co de Phone Number [facility] [address] * Enteric Pathogen Panel (10/07/2024 10:50 PM EDT) Campylobacter Group (C. ecoli, C. jejuni, C. trino) Not Detected Not Detected 10/08/2024 4:40 AM EDT [facility] Salmonella species Not Detected Not Detected 10/08/2024 4:40 AM EDT [facility] Shigella species Not Detected Not Detected 10/08/2024 4:40 AM EDT [facility] Vibrio Group (Vibrio cholerae, Vibrio parahaemolyticus) Not Detected Not Detected 10/08/2024 4:40 AM EDT [facility] Yersinia enterocolitica Not Detected Not Detected 10/08/2024 4:40 AM EDT [facility] Shiga toxin 1 Not Detected Not Detected 10/08/2024 4:40 AM EDT [facility] Shiga toxin 2 Not Detected Not Detected 10/08/2024 4:40 AM EDT [facility] Norovirus Not Detected Not Detected 10/08/2024 4:40 AM EDT [facility] Rotavirus Not Detected Not Detected 10/08/2024 4:40 AM EDT [facility] Comment: The Enteric Pathogen Panel [...] ORDERABLE S Final Result Performing Organization Address City/[facility]/ZIP Co de Phone Number [facility] [address] * Hepatitis C Antibody (10/07/2024 6:38 PM EDT) HCV Ab Nonreactive Nonreactive 10/07/2024 7:56 PM EDT [facility] Comment:Health Department no tified in accordance with reportable infectious disease guidelines. Serum 10/07/2024 6:38 PM EDT 10/07/2024 6:52 PM EDT Pending sale to [facility] - 10/07/2024 7:56 PM EDT Antibodies to HCV not detected; does not exclude the possibility of exposure to HCV. Gerri Peterson MD LAB BLOOD ORDERABLES Final Resu lt Performing Organization Address City/[facility]/ZIP Co de Phone Number [facility] [address] [facility] * Hepatitis B Surface Antibody, Quantitati (10/07/2024 6:38 PM EDT) Hep B S Ab Nonreactive Nonreactive 10/07/2024 8:00 PM EDT [facility] HBSAB NUMBER 7.88 0.00 - 7.99 mIU/mL 10/07/2024 8:00 PM EDT [facility] Serum 10/07/2024 6:38 PM EDT 10/07/2024 6:52 PM EDT Pending sale to [facility] - 10/07/2024 8:00 PM EDT Individual is considered not immune to HBV infection. Gerri Peterson MD LAB BLOOD ORDERABLES Final Resu lt [facility] [address] [facility] * Hepatitis B surface antigen (10/07/2024 6:38 PM EDT) Hep B Surface Ag Nonreactive Nonreactive 10/07/2024 7:51 PM EDT [facility] Comment:Health Department no tified in accordance with reportable infectious disease guidelines. Serum 10/07/2024 6:38 PM EDT 10/07/2024 6:52 PM EDT Pending sale to [facility] - 10/07/2024 7:51 PM EDT Specimen is considered negative for HBsAg. Result [facility] Gerri Peterson MD LAB BLOOD ORDERABLES Final Resu lt Performing Organization Address City/[facility]/ZIP Co de Phone Number [facility] [address] [facility] * Hepatitis A Antibody Total (10/07/2024 6:38 PM EDT) Anti-HAV Total (IgG + IgM) Nonreactive 10/07/2024 7:53 PM EDT [facility] Serum 10/07/2024 6:38 PM EDT 10/07/2024 6:52 PM EDT Pending sale to [facility] - 10/07/2024 7:53 PM EDT HAV antibodies not detected Gerri Peterson MD LAB BLOOD ORDERABLES Final Resu lt Performing Organization Address [facility] Co de Phone Number [facility] [address] [facility] * Hepatitis A IgM (10/07/2024 6:38 PM EDT) Pathologist [facility] Hep A IgM Nonreactive Nonreactive 10/07/2024 7:46 PM EDT [facility] Serum 10/07/2024 6:38 PM EDT 10/07/2024 6:52 PM EDT Pending sale to [facility] - 10/07/2024 7:46 PM EDT IgM anti-HAV not detected. Does not exclude the possibility of exposure to or infection with HAV. Levels of IgM anti-HAV may be below the cut-off in early infection. Result [facility] Gerri Peterson MD LAB BLOOD ORDERABLES Final Resu lt Performing Organization Address [facility]/ZIP Co de Phone Number [facility] [address] [facility] * (ABNORMAL) Lipid Profile (10/07/2024 6:37 PM EDT) Pathologist [facility] Non-HDL Cholesterol, Calculated See Note 0 - 129 mg/dL 10/07/2024 7:42 PM EDT [facility] Comment: Desirable: < 130 mg/dL Above Desirable: 130-159 mg/dL Borderline High: 160-189 mg/dL High: 190-219 mg/dL Very High: > 219 mg/dL Unable to calculate result either because contributing result(s) are outside of reportable range or are not available. Cholesterol, Total <25 0 - 200 mg/dL 10/07/2024 7:42 PM EDT [facility] Triglycerides 30 10 - 149 mg/dL 10/07/2024 7:42 PM EDT [facility] HDL 4(L) 60 - 92 mg/dL 10/07/2024 7:42 PM EDT [facility] Comment: LIPID PROFILE INTERPRETATION CHOLESTEROL,TOTAL(mg/dL) [...] Cholesterol See Note mg/dL 7:42 PM EDT [facility] Comment:Unable to calculate result either because contributing result(s) are outside of reportable range or are not available. Plasma 10/07/2024 6:37 PM EDT 10/07/2024 7:06 PM EDT Narrative [facility] - 10/07/2024 7:42 PM EDT LDL cholesterol calculated using the Friedewald equation. us Gerri Peterson MD LAB BLOOD ORDERABLES Final Resu lt [facility] [address] [place], [place] [id number] [place] [address] * (ABNORMAL) Alpha 1 Antitrypsin AAT Quant & Mutation (10/07/2024 6:37 PM EDT) A-1 Antitrypsin 99(L) 101 - 187 mg/dL 10/09/2024 4:28 AM EDT [facility] A-1 Antitrypsin Pheno Comment 10/10/2024 4:05 PM EDT [facility] Comment: A1A Phenotype is consistent with a heterozygous phenotype consisting of one M (normal) allele and one allele that cannot be identified at this time. The unknown allele is not consistent with Z (deficient), S (deficient), or F (deficient). MM Phenotype is considered to be normal , producing normal serum levels of [id number] inhibitor and not associated with clinical disease. [...] - 10/10/2024 4:08 PM EDT PERFORMED AT: [facility] [id number] MICROFILM EQUIPMENT INSPECTOR: Bassam Khalil, PhD PHONE: [phone] PERFORMED AT: [facility] [address] [id number] [employer]CROFIL[employer] EQUIPMENT INSPECTOR: Mandy Abdul MD PHONE: [phone] Gerri Peterson MD LAB BLOOD ORDERABLES Final Resu lt [facility] [address] * (ABNORMAL) CMV IgG Antibody (10/07/2024 6:37 PM EDT) CMV IgG Positive(A ) Negative 10/07/2024 8:26 PM EDT [facility] CMV IGG NUM 8.40(H) 0.00 - 0.59 U/mL 10/07/2024 8:26 PM EDT [facility] Serum 10/07/2024 6:37 PM EDT 10/07/2024 6:50 PM EDT Gerri Peterson MD LAB BLOOD ORDERABLES Final Resu lt Performing Organization Address City/[facility]/ZIP Co de Phone Number [facility] [address] [facility] * HIV-1 and HIV-2 Antibodies w Reflex (10/07/2024 6:37 PM EDT) HIV 1+2 AB/AGN Nonreactive Nonreactive 10/07/2024 7:54 PM EDT [facility] Serum 10/07/2024 6:37 PM EDT 10/07/2024 7:06 PM EDT Narrative [facility] - 10/07/2024 7:54 PM EDT \HIVRNR Gerri Peterson MD LAB BLOOD ORDERABLES Final Resu lt [facility] [address] [facility] * TSH (Thyroid Stimulating Hormone) (10/07/2024 6:37 PM EDT) TSH 0.81 0.45 - 4.12 uIU/mL 10/07/2024 8:17 PM EDT [facility] Serum 10/07/2024 6:37 PM EDT 10/07/2024 6:50 PM EDT Gerri Peterson MD LAB BLOOD ORDERABLES Final Resu lt Performing Organization Address [facility]/State/[facility] Co de Phone Number [facility] [address] * Katie-Watkins virus early antigen antibody, IgG (10/07/2024 6:37 PM EDT) Pathologist [facility] EBV Early Antigen Ab, IgG <9.0 0.0 - 8.9 U/mL 10/09/2024 2:16 PM EDT [facility] Comment: Negative < 9.0 Equivocal 9.0 - 10.9 Positive >10.9 Serum Frozen 10/07/2024 6:37 PM EDT 10/09/2024 3:07 PM EDT Narrative [facility] - 10/09/2024 3:07 PM EDT PERFORMED AT: [facility] [id number] [employer]CROFIL[employer] EQUIPMENT INSPECTOR: Bassam Khalil, PhD PHONE: [phone] Gerri Peterson MD LAB BLOOD ORDERABLES Final Resu lt Performing Organization Address [facility] de Phone Number [facility] [address] * (ABNORMAL) Varicella zoster antibody, IgG (10/07/2024 6:37 PM EDT) Pathologist [facility] Varicella IgG Positive( A) Negative S/CO 10/07/2024 8:34 PM EDT [facility] Comment:Result indicates the presence of detectable VZV IgG antibodies. A positive result is generally indicative of exposure to the pathogen or administration of specific immunoglobulins, but it is no indication of active infection or stage of disease. This test is not approved for determining vaccine-induced immunity to varicella zoster virus. VZV NUM 6.76(H) 0.00 - 0.99 S/CO 10/07/2024 8:34 PM EDT [facility] Serum 10/07/2024 6:37 PM EDT 10/07/2024 6:50 PM EDT Gerri Peterson MD LAB BLOOD ORDERABLES Final Resu lt Performing Organization Address City/[facility]/ZIP Co de Phone Number [facility] [address] * Toxoplasma gondii antibody, IgG (10/07/2024 6:37 PM EDT) Toxoplasma Gondii IgG <3.0 0.0 - 7.1 IU/mL 10/09/2024 7:53 AM EDT [facility] Comment: Negative <7.2 Equivocal 7.2 - 8.7 Positive >8.7 Serum 10/07/2024 6:37 PM EDT 10/09/2024 8:07 AM EDT Narrative [facility] - 10/09/2024 8:07 AM EDT PERFORMED AT: [facility] [id number] MICROFILM EQUIPMENT INSPECTOR: Bassam Khalil, PhD PHONE: [phone] Gerri Peterson MD LAB BLOOD ORDERABLES Final Resu lt Performing Organization Address [facility] Co de Phone Number [facility] [address] * Syphilis Screening (Trepia) (10/07/2024 6:37 PM EDT) Treponema Pallidum Negative Negative 10/07/2024 8:27 PM EDT [facility] Comment: No serological evidence of infection with Treponema pallidum (incubating or early primary syphilis cannot be excluded). Serum 10/07/2024 6:37 PM EDT 10/07/2024 6:50 PM EDT Gerri Peterson MD LAB BLOOD ORDERABLES Final Resu lt Performing Organization Address City/[facility]/ZIP Co de Phone Number [facility] [address] [facility] * Strongyloides Ab (10/07/2024 6:37 PM EDT) Strongyloides Ab Negative Negative 10/11/19 11:51 AM EDT [facility] Serum 10/07/2024 6:37 PM EDT 10/10/2024 12:07 PM EDT Narrative [facility] - 10/10/2024 12:07 PM EDT PERFORMED AT: [facility] [id number] MICROFILM EQUIPMENT INSPECTOR: Mandy Abdul MD PHONE: [phone] us Gerri Peterson MD LAB BLOOD ORDERABLES Final Resu lt [facility] [address] * Phosphatidylethanol Confirmation, B (10/07/2024 6:37 PM EDT) PETH 16:0/18.1 (POPETH) <10 Cutoff: 10 ng/mL 10/10/2024 10:42 AM EDT [facility] Comment: Phosphatidylethanol (PEth) homologues result [...] Cutoff: 10 ng/mL 10/10/2024 10:42 AM EDT [facility] Comment: PEth 16:0/18:2 (PLPEth) Reference ranges are not well established PEth Interpretation Negative. 10/10 10:42 AM EDT [facility] Comment: ADDITIONAL INFORMATION This report is intended for use in clinical monitoring and management of patients. It is not intended for use in employment-related testing. This test was developed and its performance characteristics determined by [facility] in a manner consistent with CLIA requirements. This test has not been cleared or approved by the U.S. Food and Drug Administration. Test Performed by: [facility] [address] [place] [address] Business Planning Director: Kathy Ortiz Ph.D.; CLIA# [id number] Whole Blood 10/07/2024 6:37 PM EDT 10/10/2024 10:42 AM EDT us Gerri Peterson MD LAB BLOOD ORDERABLES Final Resu lt [facility] [address] [facility] [place] [address], [facility] * (ABNORMAL) MMR(IgG) Panel (Measles, Mumps, Rubella) (10/07/2024 6:37 PM EDT) Mumps IgG Positive 10/07/2024 8:26 PM EDT [facility] MUMPS IGG NUM 77.80(H) 0.0 - 8.9 U/mL 10/07/2024 8:26 PM EDT [facility] Rubella IgG Scr Positive 10/07/2024 8:28 PM EDT [facility] RUB NUM 3.04(H) 0.00 - 0.89 INDEX 10/07/2024 8:28 PM EDT [facility] Rubeola Ab, IgG Positive 10/07/2024 8:26 PM EDT [facility] RUB IGG NUM 192.00(H) 0.00 - 13.40 U/mL 10/07/2024 8:26 PM EDT [facility] Serum 10/07/2024 6:37 PM EDT 10/07/2024 6:50 PM EDT Narrative [facility] - 10/07/2024 8:28 PM EDT [...] MD LAB BLOOD ORDERABLES Final Resu lt [facility] [address] * IgA (10/07/2024 6:37 PM EDT) IgA 227.0 70.0 - 400.0 mg/dL 10/08/2024 11:07 AM EDT [facility] Comment:Please interpret the se findings in conjunction with clinical findings, protein electrophoresis, and immunotyping/immunofixation results. Serum 10/07/2024 6:37 PM EDT 10/07/2024 6:50 PM EDT Gerri Peterson MD LAB BLOOD ORDERABLES Final Resu lt [facility] [address] [facility] * Ethanol, Serum (10/07/2024 6:37 PM EDT) Ethanol <10 0 - 10 mg/dL 10/07/2024 8:36 PM EDT [facility] Serum 10/07/2024 6:37 PM EDT 10/07/2024 6:50 PM EDT Gerri Peterson MD LAB BLOOD ORDERABLES Final Resu lt [facility] [address] [facility] * ABO/Rh - Second (10/07/2024 6:37 PM EDT) ABO Grouping O 10/07/2024 7:16 PM EDT [facility] Rh Type Positive 10/07/2024 7:16 PM EDT [facility] Blood 10/07/2024 6:37 PM EDT 10/07/2024 6:56 PM EDT Narrative [facility] - 10/07/2024 7:18 PM EDT This is not a duplicate order. It is required that ABO be drawn twice for LIVER TRANSPLANT Gerri Peterson MD BLOOD BANK TEST ORDERABLES Denisse l Result [facility] [address] [facility]. [address] * ABO/Rh- Initial (10/07/2024 6:37 PM EDT) ABO Grouping O 10/07/2024 7:59 PM EDT [facility] Rh Type Positive 10/07/2024 7:59 PM EDT [facility] Blood 10/07/2024 6:37 PM EDT 10/07/2024 7:25 PM EDT Gerri Peterson MD BLOOD BANK TEST ORDERABLES Denisse l Result Performing Organization Address [facility] Co de Phone Number [facility] [address] [facility]. [address] * X-ray Mandible minimum 4-views (10/07/2024 [...] EXAM: US ABDOMEN COMPLETE EXAM: US DUPLEX [id number] COMPLETE INDICATION: elevated bilirubin COMPARISON: Ultrasound and [...] EXAM: US ABDOMEN COMPLETE EXAM: US DUPLEX [id number] COMPLETE INDICATION: elevated bilirubin COMPARISON: Ultrasound and [...] US ORDERABLES Final Result * US Duplex [id number]-[id number] Comp (10/07/2024 3:48 PM EDT) Anatomical Region [...] EXAM: US ABDOMEN COMPLETE EXAM: US DUPLEX [id number] COMPLETE INDICATION: elevated bilirubin COMPARISON: Ultrasound and [...] EXAM: US ABDOMEN COMPLETE EXAM: US DUPLEX [id number] COMPLETE INDICATION: elevated bilirubin COMPARISON: Ultrasound and [...] 4:26 PM EDT us Bisi Hernandez DO [facility] US ORDERABLES Final Result * CARISA Rhythm [...] MD, PhD LAB BLOOD ORDERABLES Final Result [facility] [address] [facility] * (ABNORMAL) Hepatic Function Panel (10/07/2024 6:00 AM EDT) Total Bilirubin 9.7(H) 0.0 - 1.5 mg/dL 10/07/2024 7:10 AM EDT [facility] Bilirubin, Direct 5.21(H) 0.00 - 0.40 mg/dL 10/07/2024 7:10 AM EDT [facility] AST 39 13 - 39 U/L 10/07/2024 7:10 AM EDT [facility] ALT 18 7 - 52 U/L 10/07/2024 7:10 AM EDT [facility] Alkaline Phosphatase 98 36 - 125 U/L 10/07/2024 7:10 AM EDT [facility] Total Protein 4.8(L) 6.4 - 8.9 g/dL 10/07/2024 7:10 AM EDT [facility] Albumin 3.6 3.5 - 5.7 g/dL 10/07/2024 7:10 AM EDT [facility] Bilirubin, Indirect 4.49(H) 0.00 - 1.10 mg/dL 10/07/2024 7:10 AM EDT [facility] Plasma 10/07/2024 6:00 AM EDT 10/07/2024 6:39 AM EDT Eileen Schroeder MD, PhD LAB BLOOD ORDERABLES Final Result Performing Organization Address [facility] de Phone Number [facility] [address] * Magnesium (10/07/2024 6:00 AM EDT) Pathologist [facility] Magnesium 1.7 1.5 - 2.5 mg/dL 10/07/2024 7:10 AM EDT [facility] Plasma 10/07/2024 6:00 AM EDT 10/07/2024 6:39 AM EDT Eileen Schroeder MD, PhD LAB BLOOD ORDERABLES Final Result Performing Organization Address [facility] Co de Phone Number [facility] [address] * (ABNORMAL) Renal Function Panel w/EGFR (10/07/2024 6:00 AM EDT) Sodium 132(L) 133 - 146 mmol/L 10/07/2024 7:10 AM EDT [facility] Potassium 3.9 3.5 - 5.3 mmol/L 10/07/2024 7:10 AM EDT [facility] Chloride 103 98 - 110 mmol/L 10/07/2024 7:10 AM EDT [facility] CO2 19(L) 21 - 33 mmol/L 10/07/2024 7:10 AM EDT [facility] Anion Gap 10 3 - 16 mmol/L 10/07/2024 7:10 AM EDT [facility] BUN 64(H) 7 - 25 mg/dL 10/07/2024 7:10 AM EDT [facility] Creatinine 3.38(H) 0.60 - 1.30 mg/dL 10/07/2024 7:10 AM EDT [facility] Glucose 111(H) 70 - 100 mg/dL 10/07/2024 7:10 AM EDT [facility] Calcium 9.1 8.6 - 10.3 mg/dL 10/07/2024 7:10 AM EDT [facility] Phosphorus 4.2 2.1 - 4.7 mg/dL 10/07/2024 7:10 AM EDT [facility] Albumin 3.6 3.5 - 5.7 g/dL 10/07/2024 7:10 AM EDT [facility] Osmolality, Calculated 293 278 - 305 mOsm/kg 10/07/2024 7:10 AM EDT [facility] EGFR 22 10/07/2024 7:10 AM EDT [facility] Comment:As of 2021, the estimated [...] M, Olivia DC, Emerita ND, Madelyn [place], Strip Stamp Straightener [place], et al. A Unifying Approach for GFR Estimation: Recommendations of the NKF-ASN Task Force on Reassessing the inclusion of Race in Diagnosing Kidney Disease. Am J Kidney Dis. 2020. Plasma 10/07/2024 6:00 AM EDT 10/07/2024 6:39 AM EDT us Eileen Schroeder MD, PhD LAB BLOOD ORDERABLES Final Result [facility] [address] [place] [address], [facility] * (ABNORMAL) CBC (10/07/2024 6:00 AM EDT) WBC 3.3(L) 3.8 - 10.8 10E3/uL 10/07/2024 7:55 AM EDT [facility] RBC 2.06(L) 4.20 - 5.80 10E6/uL 10/07/2024 7:55 AM EDT [facility] Hemoglobin 7.4(L) 13.2 - 17.1 g/dL 10/07/2024 7:55 AM EDT [facility] Hematocrit 21.5(L) 38.5 - 50.0 % 10/07/2024 7:55 AM EDT [facility] MCV 104.1(H) 80.0 - 100.0 fL 10/07/2024 7:55 AM EDT [facility] MCH 35.8(H) 27.0 - 33.0 pg 10/07/2024 7:55 AM EDT [facility] MCHC 34.4 32.0 - 36.0 g/dL 10/07/2024 7:55 AM EDT [facility] RDW 17.5(H) 11.0 - 15.0 % 10/07/2024 7:55 AM EDT [facility] Platelets 35(L) 140 - 400 10E3/uL 10/07/2024 7:55 AM EDT [facility] Comment: Specimen checked for clots. None detected. Slide Reviewed for PLT Clumps. None Seen. _Platelet Morphology Normal _Platelets Appear Decreased Platelet Estimate Decreased 10/07/2024 7:55 AM EDT [facility] MPV 8.0 7.5 - 11.5 fL 10/07/2024 7:55 AM EDT [facility] Whole Blood 10/07/2024 6:00 AM EDT 10/07/2024 6:40 AM EDT Narrative [facility] - 10/07/2024 7:55 AM EDT Peripheral blood smear was scanned per review criteria approved by the laboratory anesthesiology medical doctor. Eileen Schroeder MD, PhD LAB BLOOD ORDERABLES Final Result Performing Organization Address [facility] Co de Phone Number [facility] [address] * AFP Tumor Marker (10/07/2024 6:00 AM EDT) Pathologist [facility] AFP-Tumor Marker 2.0 0.0 - 9.0 ng/mL 10/07/2024 7:11 AM EDT [facility] Serum 10/07/2024 6:00 AM EDT 10/07/2024 6:39 AM EDT Pending sale to [facility] - 10/07/2024 7:11 AM EDT The testing method for AFP is a chemiluminescent immunoassay manufactured by [employer] Concentrations of AFP obtained by different assay methods or kits may vary and cannot be used interchangeably. AFP results cannot be interpreted as absolute evidence of the presence or absence of malignant disease. Shila Rivera MD LAB BLOOD ORDERABLES Final Resul t Performing Organization Address City/[facility]/ZIP Co de Phone Number [facility] [address] [facility] * Vancomycin, random (10/07/2024 6:00 AM EDT) Pathologist [facility] Vancomycin Random 21.1 ug/mL 10/07/2024 7:08 AM EDT [facility] Comment:Reference range not established for this test. Plasma 10/07/2024 6:0 0 AM EDT 10/07/2024 6:39 AM EDT Kiet Shuder PharmD LAB BLOOD ORDERABLES Final Re sult [facility] [address] * Osmolality (10/06/2024 2:50 PM EDT) Osmolality, Measured 304 278 - 305 mOsm/kg 10/06/2024 3:49 PM EDT [facility] Serum 10/06/2024 2:50 PM EDT 10/06/2024 2:56 PM EDT us Chari Vanegas MD LAB BLOOD ORDERABLES Final Resul t Performing Organization Address City/[facility]/ZIP Co de Phone Number [facility] [address] * CT Head WO contrast (10/06/2024 [...] Ur <15 mmol/L 10/06/2024 1:56 PM EDT [facility] Comment:Reference range not established for this test. Urine 10/06/2024 1:25 PM EDT 10/06/2024 1:32 PM EDT Chari Vanegas MD URINE ORDERABLES Final Result Performing Organization Address [facility] Co de Phone Number [facility] [address] [facility] * Potassium, urine, random (10/06/2024 1:25 PM EDT) Potassium Urine Random 50.0 mmol/L 10/06/2024 1:56 PM EDT [facility] Comment:Reference range not established for this test. Urine 10/06/2024 1:25 PM EDT 10/06/2024 1:32 PM EDT Chari Vanegas MD URINE ORDERABLES Final Result [facility] [address] * Sodium, urine, random (10/06/2024 1:25 PM EDT) Sodium, Ur <10 mmol/L 10/06/2024 1:56 PM EDT [facility] Comment:Reference range not established for this test. Urine 10/06/2024 1:25 PM EDT 10/06/2024 1:32 PM EDT Chari Vanegas MD URINE ORDERABLES Final Result Performing Organization Address City/[facility] Co de Phone Number [facility] [address] [facility] * Creatinine, Urine, Random (10/06/2024 1:25 PM EDT) Creatinine, Urine 87.40 mg/dL 10/06/2024 1:56 PM EDT [facility] Comment:Reference range not established for this test. Urine 10/06/2024 1:25 PM EDT 10/06/2024 1:32 PM EDT Chari Vanegas MD URINE ORDERABLES Final Result Performing Organization Address [facility] Co de Phone Number [facility] [address] [facility] * Osmolality, Urine (10/06/2024 1:25 PM EDT) Osmolality, Ur 386 50 - 1,200 mOsm/kg 10/06/2024 1:55 PM EDT [facility] Urine 10/06/2024 1:25 PM EDT 10/06/2024 1:32 PM EDT us hCari Vanegas MD URINE ORDERABLES Final Result Performing Organization Address [facility] Co de Phone Number [facility] [address] [facility] * Urine Drug Confirmation (10/06/2024 11:51 AM EDT) BARBITURATES NOT PRESENT 10/09/2024 3:23 PM EDT [facility] Comment:Results were recheck ed. BENZODIAZEPINES PRESENT 3:23 PM EDT [facility] Nordiazepam 3 ng/mL 10/09/2024 3:23 PM EDT [facility] Comment:Results were recheck ed. Temazepam 8 ng/mL 10/09/2024 3:23 PM EDT [facility] Comment:Results were recheck ed. CANNABINOIDS NOT PRESENT 10/09/2024 3:23 PM EDT [facility] MARINE SERVICES TECHNICIAN STIMULANTS NOT PRESENT 3:23 PM EDT [facility] OPIOID ANALGESICS PRESENT 025 3:23 PM EDT [facility] Oxycodone 329 ng/mL 10/09/2024 3:23 PM EDT [facility] Oxymorphone 61 ng/mL 10/09/2024 3:23 PM EDT [facility] Tramadol >1000 ng/mL 10/09/2024 3:23 PM EDT [facility] OPIOID ANTAGONISTS NOT PRESENT 10/09 3:23 PM EDT [facility] SEDATIVES/MUSCLE RELAXANTS NOT PRESENT 10/09/2024 3:23 PM EDT [facility] TRICYCLIC ANTIDEPRESSANTS NOT PRESENT 10/09/2024 3:23 PM EDT [facility] Urine 10/06/2024 11:5 1 AM EDT 10/06/2024 1:13 PM EDT Bisi Hernandez DO URINE ORDERABLES Final Result [facility] [address] * (ABNORMAL) Urine Drug Screen Reflex to Confirmation (10/06/2024 11:51 AM EDT) Amphetamine, 500 ng/mL Cutoff Negative Negative 10/06/2024 1:13 PM EDT [facility] Barbiturates UR, 300 ng/mL Cutoff Negative Negative 10/06/2024 1:13 PM EDT [facility] Buprenorphine, 5 ng/mL Cutoff Negative Negative 10/06/2024 1:13 PM EDT [facility] Benzodiazepines UR, 300 ng/mL Cutoff Negative Negative 10/06/2024 1:13 PM EDT [facility] Cocaine UR, 300 ng/mL Cutoff Negative Negative 10/06/2024 1:13 PM EDT [facility] Methadone, UR, 300 ng/mL Cutoff Negative Negative 10/06/2024 1:13 PM EDT [facility] Opiates UR, 300 ng/mL Cutoff Negative Negative 10/06/2024 1:13 PM EDT [facility] Oxycodone, 100 ng/mL Cutoff Presumptive Positive(A) Negative 10/06/2024 1:13 PM EDT [facility] Tricyclic Antidepressants, 300 ng/mL Cutoff Negative Negative 10/06/2024 1:13 PM EDT [facility] Comment:This test has been d [...] Cutoff Negative Negative 10/06/2024 1:13 PM EDT [facility] Comment:This is a screening method only and may be associated with false positive and/or false negative results. Results are not definitive without additional confirmatory testing by mass spectrometry. Fentanyl, 2 ng/mL Cutoff Negative Negative 10/06/2024 1:13 PM EDT [facility] Comment:This test has been d [...] AM EDT 10/06/2024 11:58 AM EDT Narrative [facility] - 10/06/2024 1:13 PM EDT CONFIRMATION TO FOLLOW Bisi Hernandezella DO URINE ORDERABLES Final Result Performing Organization Address [facility] de Phone Number [facility] [address] * Chloride, urine, random (10/06/2024 11:51 AM EDT) Chloride, Ur <15 mmol/L 10/06/2024 1:13 PM EDT [facility] Comment:Reference range not established for this test. Urine 10/06/2024 11:5 1 AM EDT 10/06/2024 11:57 AM EDT Bisi Hernandez DO URINE ORDERABLES Final Result Performing Organization Address [facility] de Phone Number [facility] [address] * Potassium, urine, random (10/06/2024 11:51 AM EDT) Potassium Urine Random 49.0 mmol/L 10/06/2024 1:13 PM EDT [facility] Comment:Reference range not established for this test. Urine 10/06/2024 11:5 1 AM EDT 10/06/2024 11:57 AM EDT Bisi Hernandez DO URINE ORDERABLES Final Result Performing Organization Address [facility] de Phone Number [facility] [address] * Sodium, urine, random (10/06/2024 11:51 AM EDT) Sodium, Ur <10 mmol/L 10/06/2024 1:13 PM EDT [facility] Comment:Reference range not established for this test. Urine 10/06/2024 11:5 1 AM EDT 10/06/2024 11:57 AM EDT us Bisi Akella DO URINE ORDERABLES Final Result [facility] [address] [facility] [place] [address], [facility] * Urinalysis w/Rfl to Microscopic (10/06/2024 11:51 AM EDT) Color, UA Yellow Yellow,Straw 10/06/2024 12:25 PM EDT [facility] Clarity, UA Clear Clear 10/06/2024 12:25 PM EDT [facility] Specific [place], UA 1.014 1.005 - 1.035 10/06/2024 12:25 PM EDT [facility] pH, UA 6.0 5.0 - 8.0 10/06/2024 12:25 PM EDT [facility] Protein, UA Negative Negative mg/dL 10/06/2024 12:25 PM EDT [facility] Glucose, UA Negative Negative mg/dL 10/06/2024 12:25 PM EDT [facility] Ketones, UA Negative Negative mg/dL 10/06/2024 12:25 PM EDT [facility] Bilirubin, UA Negative Negative 10/06/2024 12:25 PM EDT [facility] Blood, UA Negative Negative 10/06/2024 12:25 PM EDT [facility] Nitrite, UA Negative Negative 10/06/2024 12:25 PM EDT [facility] Urobilinogen, UA <2.0 0.2 - 1.9 mg/dL 10/06/2024 12:25 PM EDT [facility] Leukocyte Esterase, UA Negative Negative 10/06/2024 12:25 PM EDT [facility] Urine 10/06/2024 11:5 1 AM EDT 10/06/2024 11:57 AM EDT Narrative [facility] - 10/06/2024 12:25 PM EDT Microscopic testing is not performed when the dipstick is negative for blood, leukocyte, protein and nitrite. us Bisi Hernandez DO URINE ORDERABLES Final Result [facility] [address] [place] [address], [facility] * Lactic Acid, STAT (10/06/2024 7:38 AM EDT) Lactate 0.9 0.5 - 2.2 mmol/L 10/06/2024 8:05 AM EDT [facility] Plasma 10/06/2024 7:38 AM EDT 10/06/2024 7:42 AM EDT us Chari Vanegas MD LAB BLOOD ORDERABLES Final Resul t [facility] [address] [place], [place] [address] * (ABNORMAL) CBC, STAT (10/06/2024 7:37 AM EDT) WBC 5.6 3.8 - 10.8 10E3/uL 10/06/2024 8:22 AM EDT [facility] RBC 2.50(L) 4.20 - 5.80 10E6/uL 10/06/2024 8:22 AM EDT [facility] Hemoglobin 9.0(L) 13.2 - 17.1 g/dL 10/06/2024 8:22 AM EDT [facility] Hematocrit 25.3(L) 38.5 - 50.0 % 10/06/2024 8:22 AM EDT [facility] MCV 101.2(H) 80.0 - 100.0 fL 10/06/2024 8:22 AM EDT [facility] MCH 36.0(H) 27.0 - 33.0 pg 10/06/2024 8:22 AM EDT [facility] MCHC 35.6 32.0 - 36.0 g/dL 10/06/2024 8:22 AM EDT [facility] RDW 17.7(H) 11.0 - 15.0 % 10/06/2024 8:22 AM EDT [facility] Platelets 52(L) 140 - 400 10E3/uL 10/06/2024 8:22 AM EDT [facility] Comment: Specimen checked for clots. None detected. Slide Reviewed for PLT Clumps. None Seen. MPV 8.2 7.5 - 11.5 fL 10/06/2024 8:22 AM EDT [facility] Whole Blood 10/06/2024 7:37 AM EDT 10/06/2024 7:43 AM EDT us Chari Vanegas MD LAB BLOOD ORDERABLES Final Resul t [facility] [address] [place] [address], [facility] * (ABNORMAL) Comprehensive Metabolic Panel (10/06/2024 7:37 AM EDT) Sodium 129(L) 133 - 146 mmol/L 10/06/2024 8:16 AM EDT [facility] Potassium 4.4 3.5 - 5.3 mmol/L 10/06/2024 8:16 AM EDT [facility] Chloride 100 98 - 110 mmol/L 10/06/2024 8:16 AM EDT [facility] CO2 18(L) 21 - 33 mmol/L 10/06/2024 8:16 AM EDT [facility] Anion Gap 11 3 - 16 mmol/L 10/06/2024 8:16 AM EDT [facility] BUN 62(H) 7 - 25 mg/dL 10/06/2024 8:16 AM EDT [facility] Creatinine 3.40(H) 0.60 - 1.30 mg/dL 10/06/2024 8:16 AM EDT [facility] Glucose 98 70 - 100 mg/dL 10/06/2024 8:16 AM EDT [facility] Calcium 9.5 8.6 - 10.3 mg/dL 10/06/2024 8:16 AM EDT [facility] Total Bilirubin 14.3(H) 0.0 - 1.5 mg/dL 10/06/2024 8:16 AM EDT [facility] AST 57(H) 13 - 39 U/L 10/06/2024 8:16 AM EDT [facility] ALT 29 7 - 52 U/L 10/06/2024 8:16 AM EDT [facility] Alkaline Phosphatase 158(H) 36 - 125 U/L 10/06/2024 8:16 AM EDT [facility] Total Protein 5.6(L) 6.4 - 8.9 g/dL 10/06/2024 8:16 AM EDT [facility] Albumin 3.6 3.5 - 5.7 g/dL 10/06/2024 8:16 AM EDT [facility] Osmolality, Calculated 286 278 - 305 mOsm/kg 10/06/2024 8:16 AM EDT [facility] EGFR 22 10/06/2024 8:16 AM EDT [facility] Comment:As of 2021, the estimated [...] MD LAB BLOOD ORDERABLES Final Resul t [facility] [address] [place] [address], [facility] * (ABNORMAL) Venous Blood Gas, Line/Syringe, STAT (10/06/2024 7:37 AM EDT) PH-Line Draw 7.27(L) 7.32 - 7.42 10/06/2024 7:46 AM EDT [facility] PCO2-Line Draw 36(L) 41 - 51 mm Hg 10/06/2024 7:46 AM EDT [facility] PO2-Line Draw 44(H) 25 - 40 mm Hg 10/06/2024 7:46 AM EDT [facility] HCO3-Line Draw 17(L) 24 - 28 mmol/L 10/06/2024 7:46 AM EDT [facility] CO2 Content-Line Draw 18(L) 25 - 29 mmol/L 10/06/2024 7:46 AM EDT [facility] Base Excess-Line Draw -9.6(L) -2.0 - 3.0 mmol/L 10/06/2024 7:46 AM EDT [facility] %HBO2-Line Draw 69.8 40.0 - 70.0 % 10/06/2024 7:46 AM EDT [facility] Carboxyhgb-Ludivina e Draw 0.7 % 10/06/2024 7:46 AM EDT [facility] Comment: CARBOXYHEMOGLOBIN (CO) REFERENCE RANGES: Non-Smokers: <2 % Smokers: <8 % TOXIC: >20 % Methemoglobin- Line Draw 0.3 0.0 - 1.5 % 10/06/2024 7:46 AM EDT [facility] Reduced Hemoglobin-Ludivina e Draw 29.2(H) 0.0 - 5.0 % 10/06/2024 7:46 AM EDT [facility] Venous, Line Draw 10/06/2024 7:37 AM EDT 10/06/2024 7:43 AM EDT us Chari Vanegas MD LAB BLOOD ORDERABLES Final Resul t Performing Organization Address City/State/[facility] Co de Phone Number [facility] [address] [address], [facility] * (ABNORMAL) Venous Blood Gas, Line/Syringe, STAT (10/06/2024 4:03 AM EDT) PH-Line Draw 7.21(L) 7.32 - 7.42 10/06/2024 4:16 AM EDT [facility] PCO2-Line Draw 41 41 - 51 mm Hg 10/06/2024 4:16 AM EDT [facility] PO2-Line Draw 32 25 - 40 mm Hg 10/06/2024 4:16 AM EDT [facility] HCO3-Line Draw 16(L) 24 - 28 mmol/L 10/06/2024 4:16 AM EDT [facility] CO2 Content-Line Draw 18(L) 25 - 29 mmol/L 10/06/2024 4:16 AM EDT [facility] Base Excess-Line Draw -10.8(L) -2.0 - 3.0 mmol/L 10/06/2024 4:16 AM EDT [facility] %HBO2-Line Draw 47.5 40.0 - 70.0 % 10/06/2024 4:16 AM EDT [facility] Carboxyhgb-Ludivina e Draw 2.0 % 10/06/2024 4:16 AM EDT [facility] Comment: CARBOXYHEMOGLOBIN (CO) REFERENCE RANGES: Non-Smokers: <2 % Smokers: <8 % TOXIC: >20 % Methemoglobin- Line Draw 0.7 0.0 - 1.5 % 10/06/2024 4:16 AM EDT [facility] Reduced Hemoglobin-Ludivina e Draw 49.8(H) 0.0 - 5.0 % 10/06/2024 4:16 AM EDT [facility] Venous, Line Draw 10/06/2024 4:03 AM EDT 10/06/2024 4:12 AM EDT Ready LAB BLOOD ORDERABLES Final Resul t Performing Organization Address City/[facility] Co de Phone Number [facility] [address] * (ABNORMAL) Protime-INR (10/06/2024 4:01 AM EDT) Protime 21.3(H) 12.1 - 15.1 seconds 10/06/2024 4:40 AM EDT [facility] INR 1.8(H) 0.9 - 1.1 10/06/2024 4:40 AM EDT [facility] Comment: RECOMMENDED THERAPEUTIC RANGES USING INR : Stable oral anticoagulant therapy: 2.0 - 3.0 Mechanical prosthetic heart valve: 2.5 - 3.5 Recurrent acute myocardial infarction: 2.5 - 3.5 Plasma 10/06/2024 4:01 AM EDT 10/06/2024 4:11 AM EDT [employer] DO LAB BLOOD ORDERABLES Final Resul t [facility] [address] * (ABNORMAL) Hepatic Function Panel, AM (10/06/2024 4:01 AM EDT) Total Bilirubin 14.7(H) 0.0 - 1.5 mg/dL 10/06/2024 4:57 AM EDT [facility] Bilirubin, Direct 7.08(H) 0.00 - 0.40 mg/dL 10/06/2024 4:57 AM EDT [facility] AST 60(H) 13 - 39 U/L 10/06/2024 4:57 AM EDT [facility] ALT 31 7 - 52 U/L 10/06/2024 4:57 AM EDT [facility] Alkaline Phosphatase 162(H) 36 - 125 U/L 10/06/2024 4:57 AM EDT [facility] Total Protein 5.3(L) 6.4 - 8.9 g/dL 10/06/2024 4:57 AM EDT [facility] Albumin 3.4(L) 3.5 - 5.7 g/dL 10/06/2024 4:57 AM EDT [facility] Bilirubin, Indirect 7.62(H) 0.00 - 1.10 mg/dL 10/06/2024 4:57 AM EDT [facility] Plasma 10/06/2024 4:01 AM EDT 10/06/2024 4:22 AM EDT Bisi Hernandez DO LAB BLOOD ORDERABLES Final Resul t [facility] [address] * Magnesium (10/06/2024 4:01 AM EDT) Magnesium 1.8 1.5 - 2.5 mg/dL 10/06/2024 4:57 AM EDT [facility] Plasma 10/06/2024 4:01 AM EDT 10/06/2024 4:22 AM EDT us Bisi Hernandez DO LAB BLOOD ORDERABLES Final Resul t [facility] [address] [place] [address], [facility] * (ABNORMAL) Renal Function Panel w/EGFR (10/06/2024 4:01 AM EDT) Sodium 129(L) 133 - 146 mmol/L 10/06/2024 4:57 AM EDT [facility] Potassium 4.7 3.5 - 5.3 mmol/L 10/06/2024 4:57 AM EDT [facility] Chloride 100 98 - 110 mmol/L 10/06/2024 4:57 AM EDT [facility] CO2 16(L) 21 - 33 mmol/L 10/06/2024 4:57 AM EDT [facility] Anion Gap 13 3 - 16 mmol/L 10/06/2024 4:57 AM EDT [facility] BUN 61(H) 7 - 25 mg/dL 10/06/2024 4:57 AM EDT [facility] Creatinine 3.49(H) 0.60 - 1.30 mg/dL 10/06/2024 4:57 AM EDT [facility] Glucose 104(H) 70 - 100 mg/dL 10/06/2024 4:57 AM EDT [facility] Calcium 9.2 8.6 - 10.3 mg/dL 10/06/2024 4:57 AM EDT [facility] Phosphorus 5.3(H) 2.1 - 4.7 mg/dL 10/06/2024 4:57 AM EDT [facility] Albumin 3.4(L) 3.5 - 5.7 g/dL 10/06/2024 4:57 AM EDT [facility] Osmolality, Calculated 286 278 - 305 mOsm/kg 10/06/2024 4:57 AM EDT [facility] EGFR 22 10/06/2024 4:57 AM EDT [facility] Comment:As of 2021, the estimated [...] DO LAB BLOOD ORDERABLES Final Resul t [facility] [address] [place] [address], [facility] * (ABNORMAL) CBC (10/06/2024 4:01 AM EDT) WBC 7.6 3.8 - 10.8 10E3/uL 10/06/2024 5:16 AM EDT [facility] RBC 2.77(L) 4.20 - 5.80 10E6/uL 10/06/2024 5:16 AM EDT [facility] Hemoglobin 10.1(L) 13.2 - 17.1 g/dL 10/06/2024 5:16 AM EDT [facility] Hematocrit 28.4(L) 38.5 - 50.0 % 10/06/2024 5:16 AM EDT [facility] MCV 102.4(H) 80.0 - 100.0 fL 10/06/2024 5:16 AM EDT [facility] MCH 36.4(H) 27.0 - 33.0 pg 10/06/2024 5:16 AM EDT [facility] MCHC 35.5 32.0 - 36.0 g/dL 10/06/2024 5:16 AM EDT [facility] RDW 18.0(H) 11.0 - 15.0 % 10/06/2024 5:16 AM EDT [facility] Platelets 53(L) 140 - 400 10E3/uL 10/06/2024 5:16 AM EDT [facility] Comment:Specimen checked for clots. None detected. MPV 8.4 7.5 - 11.5 fL 10/06/2024 5:16 AM EDT [facility] Whole Blood 10/06/2024 4:01 AM EDT 10/06/2024 4:11 AM EDT [facility] BLOOD ORDERABLES Final Resul t Performing Organization Address [facility] de Phone Number [facility] [address] [place] [address]. [address] * Hepatitis C Antibody (10/06/2024 4:01 AM EDT) HCV Ab Nonreactive Nonreactive 10/06/2024 5:12 AM EDT [facility] Comment:Health Department no tified in accordance with reportable infectious disease guidelines. Serum 10/06/2024 4:01 AM EDT 10/06/2024 4:11 AM EDT Narrative [facility] - 10/06/2024 5:12 AM EDT Antibodies to HCV not detected; does not exclude the possibility of exposure to HCV. [facility] BLOOD ORDERABLES Final Resul t Performing Organization Address [facility] de Phone Number [facility] [address] [place] [address]. [address] * (ABNORMAL) Hepatitis B Surface Antibody, Quantitati (10/06/2024 4:01 AM EDT) Hep B S Ab Reactive( A) Nonreactive 10/06/2024 5:16 AM EDT [facility] HBSAB NUMBER 11.50(H) 0.00 - 7.99 mIU/mL 10/06/2024 5:16 AM EDT [facility] Serum 10/06/2024 4:01 AM EDT 10/06/2024 4:11 AM EDT Narrative [facility] - 10/06/2024 5:16 AM EDT Individual is considered immune to HBV infection. Ready LAB BLOOD ORDERABLES Final Resul t Performing Organization Address City/[facility] Co de Phone Number [facility] [address] [place] [address]. [address] * Hepatitis B surface antigen (10/06/2024 4:01 AM EDT) Hep B Surface Ag Nonreactive Nonreactive 10/06/2024 5:07 AM EDT [facility] Comment:Health Department no tified in accordance with reportable infectious disease guidelines. Serum 10/06/2024 4:01 AM EDT 10/06/2024 4:11 AM EDT Pending sale to [facility] - 10/06/2024 5:07 AM EDT Specimen is considered negative for HBsAg. Ready LAB BLOOD ORDERABLES Final Resul t Performing Organization Address [facility] Co de Phone Number [facility] [address] [place] [address]. [address] * Hepatitis A Antibody Total (10/06/2024 4:01 AM EDT) Anti-HAV Total (IgG + IgM) Nonreactive 10/06/2024 5:08 AM EDT [facility] Serum 10/06/2024 4:01 AM EDT 10/06/2024 4:11 AM EDT [facility] - 10/06/2024 5:08 AM EDT HAV antibodies not detected Ready LAB BLOOD ORDERABLES Final Resul t [facility] [address] [facility]. [address] * Hepatitis A IgM (10/06/2024 4:01 AM EDT) Hep A IgM Nonreactive Nonreactive 10/06/2024 5:02 AM EDT [facility] Serum 10/06/2024 4:01 AM EDT 10/06/2024 4:11 AM EDT Narrative [facility] - 10/06/2024 5:02 AM EDT IgM anti-HAV not detected. Does not exclude the possibility of exposure to or infection with HAV. Levels of IgM anti-HAV may be below the cut-off in early infection. Ready LAB BLOOD ORDERABLES Final Resul t Performing Organization Address City/[facility]/ZIP Co de Phone Number [facility] [address] * (ABNORMAL) Salicylate Level (10/06/2024 4:01 AM EDT) Salicylate Lvl <3(L) 10 - 30 mg/dL 10/06/2024 4:58 AM EDT [facility] Serum 10/06/2024 4:01 AM EDT 10/06/2024 4:22 AM EDT Ready LAB BLOOD ORDERABLES Final Resul t Performing Organization Address [facility] Co de Phone Number [facility] [address] * AFP Tumor Marker (10/06/2024 4:01 AM EDT) AFP-Tumor Marker 2.6 0.0 - 9.0 ng/mL 10/06/2024 4:55 AM EDT [facility] Serum 10/06/2024 4:01 AM EDT 10/06/2024 4:22 AM EDT Narrative [facility] - 10/06/2024 4:55 AM EDT The testing method for AFP is a chemiluminescent immunoassay manufactured by [employer] Concentrations of AFP obtained by different assay methods or kits may vary and cannot be used interchangeably. AFP results cannot be interpreted as absolute evidence of the presence or absence of malignant disease. Ready LAB BLOOD ORDERABLES Final Resul t Performing Organization Address [facility] Co de Phone Number [facility] [address] * Upper Respiratory Viral/Bacterial Panel-ROTOR CASTING MACHINE SETUP OPERATOR Only (10/06/2024 3:12 AM EDT) [facility] Adenovirus Not Detected Not Detected 10/06/2024 11:38 PM EDT [facility] Coronavirus (229E,HKU1,NL63,OC 43) Not Detected Not Detected 10/06/2024 11:38 PM EDT [facility] SARS-CoV-2 Not Detected Not Detected 10/06/2024 11:38 PM EDT [facility] Human Metapneumovirus Not Detected Not Detected 10/06/2024 11:38 PM EDT [facility] Human Rhinovirus/Enterov irus Not Detected Not Detected 10/06/2024 11:38 PM EDT [facility] Influenza A Not Detected Not Detected 10/06/2024 11:38 PM EDT [facility] Influenza A H1 Not Detected Not Detected 10/06/2024 11:38 PM EDT [facility] Influenza A/H1-2009 Not Detected Not Detected 10/06/2024 11:38 PM EDT [facility] Influenza A H3 Not Detected Not Detected 10/06/2024 11:38 PM EDT [facility] Influenza B Not Detected Not Detected 10/06/2024 11:38 PM EDT [facility] Parainfluenza 1 Not Detected Not Detected 10/06/2024 11:38 PM EDT [facility] Parainfluenza 2 Not Detected Not Detected 10/06/2024 11:38 PM EDT [facility] Parainfluenza 3 Not Detected Not Detected 10/06/2024 11:38 PM EDT [facility] Parainfluenza 4 Not Detected Not Detected 10/06/2024 11:38 PM EDT [facility] Resp. Syncycial Virus A Not Detected Not Detected 10/06/2024 11:38 PM EDT [facility] Resp. Syncycial Virus B Not Detected Not Detected 10/06/2024 11:38 PM EDT [facility] Chlamydia pneumoniae Not Detected Not Detected 10/06/2024 11:38 PM EDT [facility] Mycoplasma pneumoniae Not Detected Not Detected 10/06/2024 11:38 PM EDT [facility] Comment: The Respiratory Viral-Bacterial Panel [...] Test results have been sent to the [facility] in accordance with state requirements. For a fact sheet for healthcare providers, see https://www.fda.gov/media/640518/download. For a fact sheet for patients, see https://www.fda.gov/media/969687/download. Nasopharyngeal Swab NASOPHARYNGEAL SWAB / Unknown 10/06/2024 3:12 AM EDT 10/06/2024 5:41 PM EDT Comment:[employer] CASTING MACHINE SETUP OPERATOR Bisi Hernandez DO BODY FLUIDS AND STOOLS ORDERABLE S Final Result Performing Organization Address City/State[facility] Co de Phone Number [facility] [address] [id number] * X-ray Portable Chest (10/06/2024 1:16 [...] 10/06/2024 2:33 AM EDT Bisi Hernandez DO [facility] ORDERABLE S Final Result * Phosphatidylethanol Confirmation, B (10/06/2024 1:04 AM EDT) PETH 16:0/18.1 (POPETH) <10 Cutoff: 10 ng/mL 10/10/2024 3:11 AM EDT [facility] Comment: Phosphatidylethanol (PEth) homologues result [...] and its performance characteristics determined by [facility] in a manner consistent with CLIA requirements. This test has not been cleared or approved by the U.S. Food and Drug Administration. Test Performed by: [place] [address] Business Planning Director: Kathy Ortiz Ph.D.; CLIA# [id number] Whole Blood 10/06/2024 1:04 AM EDT 10/10/2024 3:11 AM EDT [facility] BLOOD ORDERABLES Final Resul t Performing Organization Address City/[facility] Co de Phone Number [facility] [address] * (ABNORMAL) Acetaminophen Level (10/06/2024 1:04 AM EDT) Acetaminophen Level <10(L) 10 - 30 ug/mL 10/06/2024 2:08 AM EDT [facility] Serum 10/06/2024 1:04 AM EDT 10/06/2024 1:30 AM EDT [facility] BLOOD ORDERABLES Final Resul t Performing Organization Address [facility] Co de Phone Number [facility] [address] * Ethanol, Serum (10/06/2024 1:04 AM EDT) Ethanol <10 0 - 10 mg/dL 10/06/2024 2:08 AM EDT [facility] Serum 10/06/2024 1:04 AM EDT 10/06/2024 1:30 AM EDT Bisi Loxam Holdingana maría DOZIER LAB BLOOD ORDERABLES Final Resul t [facility] [address] [facility]. [address] * #2 Blood culture-Peripheral site 2 (10/06/2024 1:04 AM EDT) Culture Result No Growth After 5 Days [facility] Blood BLOOD SPECIMEN / Unknown 10/06/2024 1:04 AM EDT 10/06/2024 4:57 AM EDT Narrative [facility] - 10/11/2024 5:05 AM EDT Suboptimal volume of blood received. Interpret results with caution. Bisi Mary DOZIER MICROBIOLOGY - GENERAL ORDERABLE S Final Result Performing Organization Address City/[facility]/ZIP Co de Phone Number [facility] [address] [facility]. [address] * #1 Blood culture-Peripheral site 1 (10/06/2024 1:04 AM EDT) Culture Result No Growth After 5 Days [facility] Blood BLOOD SPECIMEN / Unknown 10/06/2024 1:04 AM EDT 10/06/2024 4:57 AM EDT Narrative [facility] - 10/11/2024 5:01 AM EDT Suboptimal volume of blood received. Interpret results with caution. Bisi Hernandez DO MICROBIOLOGY - GENERAL ORDERABLE S Final Result Performing Organization Address City/[facility]/ZIP Co de Phone Number [facility] [address] * Ammonia (10/06/2024 1:04 AM EDT) Ammonia 77 27 - 90 ug/dL 10/06/2024 2:00 AM EDT [facility] Plasma 10/06/2024 1:04 AM EDT 10/06/2024 1:30 AM EDT AEGEA Medical DO LAB BLOOD ORDERABLES Final Resul t Performing Organization Address City/[facility] Co de Phone Number [facility] [address] [facility]. [address] * Thyroid Function [place] (10/06/2024 1:04 AM EDT) TSH 0.84 0.45 - 4.12 uIU/mL 10/06/2024 2:20 AM EDT [facility] Serum 10/06/2024 1:04 AM EDT 10/06/2024 1:39 AM EDT Ready LAB BLOOD ORDERABLES Final Resul t Performing Organization Address [facility] Phone Number [facility] [address] [facility] * (ABNORMAL) Protime-INR (10/06/2024 1:04 AM EDT) Protime 22.8(H) 12.1 - 15.1 seconds 10/06/2024 1:48 AM EDT [facility] INR 1.9(H) 0.9 - 1.1 10/06/2024 1:48 AM EDT [facility] Comment: RECOMMENDED THERAPEUTIC RANGES USING INR : Stable oral anticoagulant therapy: 2.0 - 3.0 Mechanical prosthetic heart valve: 2.5 - 3.5 Recurrent acute myocardial infarction: 2.5 - 3.5 Plasma 10/06/2024 1:04 AM EDT 10/06/2024 1:30 AM EDT AEGEA Medical DO LAB BLOOD ORDERABLES Final Resul t Performing Organization Address [facility]/ZIP Co de Phone Number [facility] [address] * Lactic Acid, STAT (10/06/2024 1:04 AM EDT) Lactate 1.2 0.5 - 2.2 mmol/L 10/06/2024 1:59 AM EDT [facility] Plasma 10/06/2024 1:04 AM EDT 10/06/2024 1:30 AM EDT us Bisi Mary DOZIER LAB BLOOD ORDERABLES Final Resul t [facility] [address] * (ABNORMAL) CBC, STAT (10/06/2024 1:04 AM EDT) WBC 7.9 3.8 - 10.8 10E3/uL 10/06/2024 2:36 AM EDT [facility] RBC 2.76(L) 4.20 - 5.80 10E6/uL 10/06/2024 2:36 AM EDT [facility] Hemoglobin 9.9(L) 13.2 - 17.1 g/dL 10/06/2024 2:36 AM EDT [facility] Hematocrit 28.0(L) 38.5 - 50.0 % 10/06/2024 2:36 AM EDT [facility] MCV 101.5(H) 80.0 - 100.0 fL 10/06/2024 2:36 AM EDT [facility] MCH 35.7(H) 27.0 - 33.0 pg 10/06/2024 2:36 AM EDT [facility] MCHC 35.2 32.0 - 36.0 g/dL 10/06/2024 2:36 AM EDT [facility] RDW 17.9(H) 11.0 - 15.0 % 10/06/2024 2:36 AM EDT [facility] Platelets 58(L) 140 - 400 10E3/uL 10/06/2024 2:36 AM EDT [facility] Comment: Specimen checked for clots. None detected. Slide Reviewed for PLT Clumps. None Seen. MPV 8.2 7.5 - 11.5 fL 10/06/2024 2:36 AM EDT [facility] Whole Blood 10/06/2024 1:04 AM EDT 10/06/2024 1:31 AM EDT us Bisi Hernandez DO LAB BLOOD ORDERABLES Final Resul t [facility] [address] [place] [address], [facility] * (ABNORMAL) Comprehensive Metabolic Panel (10/06/2024 1:04 AM EDT) Sodium 127(L) 133 - 146 mmol/L 10/06/2024 2:05 AM EDT [facility] Potassium 4.5 3.5 - 5.3 mmol/L 10/06/2024 2:05 AM EDT [facility] Chloride 99 98 - 110 mmol/L 10/06/2024 2:05 AM EDT [facility] CO2 18(L) 21 - 33 mmol/L 10/06/2024 2:05 AM EDT [facility] Anion Gap 10 3 - 16 mmol/L 10/06/2024 2:05 AM EDT [facility] BUN 59(H) 7 - 25 mg/dL 10/06/2024 2:05 AM EDT [facility] Creatinine 3.54(H) 0.60 - 1.30 mg/dL 10/06/2024 2:05 AM EDT [facility] Glucose 116(H) 70 - 100 mg/dL 10/06/2024 2:05 AM EDT [facility] Calcium 9.0 8.6 - 10.3 mg/dL 10/06/2024 2:05 AM EDT [facility] Total Bilirubin 14.8(H) 0.0 - 1.5 mg/dL 10/06/2024 2:05 AM EDT [facility] AST 61(H) 13 - 39 U/L 10/06/2024 2:05 AM EDT [facility] ALT 33 7 - 52 U/L 10/06/2024 2:05 AM EDT [facility] Alkaline Phosphatase 174(H) 36 - 125 U/L 10/06/2024 2:05 AM EDT [facility] Total Protein 5.2(L) 6.4 - 8.9 g/dL 10/06/2024 2:05 AM EDT [facility] Albumin 3.3(L) 3.5 - 5.7 g/dL 10/06/2024 2:05 AM EDT [facility] Osmolality, Calculated 282 278 - 305 mOsm/kg 10/06/2024 2:05 AM EDT [facility] EGFR 21 10/06/2024 2:05 AM EDT [facility] Comment:As of 2021, the estimated [...] DO LAB BLOOD ORDERABLES Final Resul t [facility] [address] [place] [address], [facility] documented in this [...] 10 mg nitroGLYCERIN in D5W injection - ADMINISTRATIVE LAW JUDGE ONLY Intra-op PRN, Starting on Sun10/14/24 at [...] documented as of this encounter Care Teams Superintendent Gas Distribution Relationship Specialty Start Date End Date Enedina Mcguire NP [address] [place] [address] PCP - General Internal Medicine 10/05/24 documented as of this encounter
--- OUTSIDE RECORDS SUMMARY | 2024-10-20 09:10 | XMS_ITS | Encounter Summary ---
Author Organization [facility] Address [facility] [place] [address] Care Team Providers Care Green Feed Attendant Name Role Phone Enedina Mcguire NP Primary Care Provider [phone] Source Comments This information has been disclosed [...] release of HIV test results or diagnoses. [id number] Encounter Details Date Type Department Care Team (Latest Contact Info) Description 10/20/2024 9:10 AM EDT - 10/20/2024 11:59 PM EDT Hospital Encounter [facility] Radiology [address] [place] [phone] System, Provider Not In Discharge Disposition: Home [...] Recorded In the past 12 months has [employer], gas, oil, or water [employer] threatened to shut off services in your [...] AM EDT 10/17/2024 naloxone (NARCAN) 4 mg/actuation [place] Apply 1 spray in one nostril if [...] documented as of this encounter Care Teams Green Feed Attendant Relationship Specialty Start Date End Date Enedina Mcguire NP [address] [place] [address] PCP - General Internal Medicine 10/05/24 documented as of this encounter
--- OUTSIDE RECORDS SUMMARY | 2024-10-20 09:10 | XMS_ITS | Encounter Summary ---
Author Organization [facility] Address [facility] [place] [address] Care Team Providers Care Television Host Name Role Phone Enedina Mcguire NP Primary Care Provider [phone] Source Comments This information has been disclosed [...] release of HIV test results or diagnoses. [id number] Encounter Details Date Type Department Care Team (Latest Contact Info) Description 10/20/2024 9:10 AM EDT - 10/20/2024 11:59 PM EDT Hospital Encounter [facility] Radiology [address] [place] [phone] System, Provider Not In Discharge Disposition: Home [...] Recorded In the past 12 months has [employer], gas, oil, or water [employer] threatened to shut off services in your [...] living in a snf (including now)? No 10/06/2024 Yearly Questionnaire Answer [...] AM EDT 10/17/2024 naloxone (NARCAN) 4 mg/actuation [place] Apply 1 spray in one nostril if [...] Start Date End Date Enedina Mcguire NP [address] [place] [address] PCP - General Internal Medicine 10/05/24 documented as of this encounter
--- OUTSIDE RECORDS SUMMARY | 2024-10-20 09:10 | XMS_ITS | Encounter Summary ---
Author Organization [facility] Address [facility] [place] [address] Care Team Providers Care Rock Worker Name Role Phone Enedina Mcguire NP Primary Care Provider [phone] Source Comments This information has been disclosed [...] release of HIV test results or diagnoses. [id number] Encounter Details Date Type Department Care Team (Latest Contact Info) Description 10/20/2024 9:10 AM EDT - 10/20/2024 11:59 PM EDT Hospital Encounter [facility] Radiology [address] [place] [address] System, Provider Not In Discharge Disposition: Home [...] Recorded In the past 12 months has [employer], gas, oil, or water [employer] threatened to shut off services in [...] AM EDT 10/17/2024 naloxone (NARCAN) 4 mg/actuation [place] Apply 1 spray in one nostril if [...] documented as of this encounter Care Teams Rock Worker Relationship Specialty Start Date End Date Enedina Mcguire NP [address] [place] [address] PCP - General Internal Medicine 10/05/24 documented as of this encounter
--- OUTSIDE RECORDS SUMMARY | 2024-10-20 09:10 | XMS_ITS | Encounter Summary ---
Author Organization [facility] Address [facility] [place] [address] Care Team Providers Care Plant Superintendent Name Role Phone Enedina Mcguire NP Primary Care Provider [phone] Source Comments This information has been disclosed [...] release of HIV test results or diagnoses. [id number] Encounter Details Date Type Department Care Team (Latest Contact Info) Description 10/20/2024 9:10 AM EDT - 10/20/2024 11:59 PM EDT Hospital Encounter [facility] Radiology [address] [place] [address] System, Provider Not In Discharge Disposition: Home [...] Recorded In the past 12 months has [employer], gas, oil, or water [employer] threatened to shut off services in your [...] EDT 10/17/2024 naloxone (NARCAN) 4 mg/actuation [place] Apply 1 spray in one nostril if [...] documented as of this encounter Care Teams Plant Superintendent Relationship Specialty Start Date End Date Enedina Mcguire NP [address] [place] [address] PCP - General Internal Medicine 10/05/24 documented as of this encounter
--- OUTSIDE RECORDS SUMMARY | 2024-10-20 09:10 | XMS_ITS | Encounter Summary ---
Author Organization [facility] Address [facility] [place] [address] Care Team Providers Care Hospice/Home Health Aide Name Role Phone Enedina Mcguire NP Primary Care Provider [phone] Source Comments This information has been disclosed [...] release of HIV test results or diagnoses. [id number] Encounter Details Date Type Department Care Team (Latest Contact Info) Description 10/20/2024 9:10 AM EDT - 10/20/2024 11:59 PM EDT Hospital Encounter [facility] Radiology [address] [place] [phone] System, Provider Not In Discharge Disposition: Home [...] Recorded In the past 12 months has [employer], gas, oil, or water [employer] threatened to shut off services in your [...] AM EDT 10/17/2024 naloxone (NARCAN) 4 mg/actuation [place] Apply 1 spray in one nostril if [...] documented as of this encounter Care Teams Hospice/Home Health Aide Relationship Specialty Start Date End Date Enedina Mcguire NP [address] [place] [address] PCP - General Internal Medicine 10/05/24 documented as of this encounter
--- OUTSIDE RECORDS SUMMARY | 2024-10-20 09:10 | XMS_ITS | Encounter Summary ---
Author Organization [facility] Address [facility] [place] [address] Care Team Providers Care Rim Fire Priming Tool Setter Name Role Phone Enedina Mcguire NP Primary Care Provider [phone] Source Comments This information has been disclosed [...] release of HIV test results or diagnoses. [id number] Encounter Details Date Type Department Care Team (Latest Contact Info) Description 10/20/2024 9:10 AM EDT - 10/20/2024 11:59 PM EDT Hospital Encounter [facility] Radiology [address] [place] [phone] System, Provider Not In Discharge Disposition: Home [...] Recorded In the past 12 months has [employer], gas, oil, or water [employer] threatened to shut off services in your [...] AM EDT 10/17/2024 naloxone (NARCAN) 4 mg/actuation [place] Apply 1 spray in one nostril if [...] documented as of this encounter Care Teams Rim Fire Priming Tool Setter Relationship Specialty Start Date End Date Enedina Mcguire NP [address] [place] [address] PCP - General Internal Medicine 10/05/24 documented as of this encounter
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
--- OUTSIDE RECORDS SUMMARY | 2024-10-25 20:46 | XMS_ITS | Encounter Summary ---
Author Organization [facility] Address [address] [place] [address] Care Team Providers Care Weight Loss Sales Consultant Name Role Phone Enedina Mcguire NP Primary Care Provider + [phone] Alicia Pantoja RN Unavailable Unavail able Source [...] release of HIV test results or diagnoses. [id number] Reason for Referral * Surgical (Routine) - Authorized Specialty Diagnoses / Procedures Referred By Shane hernadez Referred To Contact Surgery Diagnoses Acute kidney injury superimposed on CKD (CMS-HCC) Procedures Case request operating room: TRANSPLANT KIDNEY with bile duct reconstruction Sveta Judge MD [address] [facility] [address] [place] [address] Phone: tel: fax: Referral ID Status Reason Start Date Expiration Date V isits Requested Visits Authorized [id number] Authorized 10/26/2024 04/24/2025 1 1 Reason for Visit * Auth/Cert (Routine) Specialty Diagnoses / Procedures Referred By Shane hernadez Referred To Contact Surgical Intensive Care Diagnoses Liver transplant recipient (CMS-HCC) cirrhosis and CKD Procedures LIVER-KIDNEY TRANSPLANT [facility] [address] [place] [address] Phone: tel: Referral ID Status Reason Start Date Expiration Date Visits Re quested Visits Authorized [id number] 1 1 Encounter Details Date Type Department Care Team (Latest Contact Info) Description 10/25/2024 8:46 PM EDT - 11/02/2024 6:23 PM EDT Hospital Encounter [address] [place] [address] Harvey Domínguez III, MD [address] [facility] [address] [place] [address] Lydia Sanchez MD [address] [facility] Liver/[place] [address] Acute kidney injury superimposed on CKD ([facility]-HCC) (Primary Dx); Prophylactic antibiotic; Prolonged QT interval; Immunosuppression ([facility]-HCC); Abdominal pain, unspecified abdominal location Discharge [...] Recorded In the past 12 months has W-21, Slinky, or water I-DISPO threatened to shut off services in your [...] in a senior living (including now)? No 10/29/2024 Yearly Questionnaire Answer [...] Plata MD - 11/02/2024 2:04 PM EDT [facility] Liver Transplant Surgical Service Inpatient Discharge Summary Patient: Blair Gilbert : 1985 CSN: [id number] Date of Admission: 10/25/2024 Date of Discharge: [...] Case IDs Date Procedure Surgeon Location Status [id number] 10/25/24 LIVER TRANSPLANT Harvey Domínguez III, MD OR Comp [id number] 10/27/24 Donor Kidney Transplant , Back Bench [...] EXAM: US ABDOMEN LIMITED EXAM: US DUPLEX OOR-RKMXFA-TUYCTDG COMPLETE INDICATION: Post-op liver transplant COMPARISON: None [...] visualized secondary to poor acoustic windows. The jamul right kidney measures 11.6 cm in length. [...] 30 tablet Refills: 0 naloxone 4 mg/actuation [place] Commonly known as: NARCAN Apply 1 spray [...] Your Medications These medications were sent to [facility] [address] [address] [address] mycophenolate 250 mg capsule tacrolimus 1 MG capsule These medications were sent to [facility] [address] [facility] [address] Hours: Sunday - Sunday: 8:00AM - 6:00PM [...] Case IDs Date Procedure Surgeon Location Status [id number] 10/25/24 LIVER TRANSPLANT Harvey Domínguez III, MD OR Comp [id number] 10/27/24 Donor Kidney Transplant , Back Bench [...] discharge. NEURO/PAIN - Patient placed on Dilaudid OCCUPATIONAL HEALTH NURSING DIRECTOR once extubated, then transitioned to multi-modal pain [...] stent is scheduled for removal on 11/25 [facility] - PT/OT evaluated patient and recommended Home PT/OT, outpatient PT/OT only available. ENDO - A1C is 5.0. Pt was not on diabetic regimen prior to arrival. Patient developed steroid-induced hyperglycemia 2/2 steroid regimen. Discharged home on the following regimen: HDSSI. Patient met w/ chemical educator prior to discharge. HEME - Post-operatively, [...] Patient and family received post-transplant education from building services coordinator as well as medication teaching from [...] Department Center 11/04/2024 8:40 AM LTRA SURGERY, [facility] LTRA HOX [facility] 11/04/2024 10:10 AM LTRA HEPATORENAL [facility] LTRA HOX HOX 11/25/2024 9:00 AM NAA Merida [facility] URO MAB MAB 12/02/2024 2:00 PM Bossman Huffman MD [facility] MARIANGEL MAB MAB 02/25/2025 10:50 AM Brnuo Gonzalez MD KTSP HOX HOX Kenyettafahad Hartman, MS-4 [facility] SHAY PLATA MD 11/02/2024 12:50 PM [...] up appointments. Diet: Regular diet Drain/Dressing/Wound Care: Acc[place]ek will be removed in clinic approximately 3-4 [...] kept under 2 gm/day. Please discuss withyour financial aid coordinator if you have any question about appropriate dose to take. Other Instructions: Call post-liver transplant clinic with questions [phone] or call [facility] at [phone] and ask for the liver building services coordinator nutrition partner if you experience any of the following: [...] Department Center 11/04/2024 8:40 AM LTRA SURGERY, [facility] LTRA HOX [facility] 11/04/2024 10:10 AM LTRA [facility]PATORENAL [facility] LTRA HOX [facility] 11/25/2024 9:00 AM NAA Merida [facility] URO MAB MAB 12/02/2024 2:00 PM Bossman Huffman MD [facility] MARIANGEL MAB MAB 02/25/2025 10:50 [...] AM EDT 10/27/2024 lancets (ACCU-CHEK SOFTCLIX LANCETS) [facility] Use to test blood sugar [...] AM EDT 10/30/2024 naloxone (NARCAN) 4 mg/actuation [place] Apply 1 spray in one nostril if [...] tacrolimus and mycophenolate which were dispensed through [facility] per insurance [...] fair Expected caregiver involvement?: is primary med graphics manager Need for additional education in clinic?: routine reinforcement only Future medications to be obtained from, if known (select one): Tac/MMF to be filled from [facility] Pharm[facility] Financial [...] R-11 blood-glucose meter (TRUE METRIX GLUCOSE METER) [facility] Use to test blood sugar [...] Disp-15 mL, R-2 lancets (ACCU-CHEK SOFTCLIX LANCETS) [facility] Use to test blood sugar [...] Disp-30 tablet, R-0 naloxone (NARCAN) 4 mg/actuation [place] Apply 1 spray in one nostril if [...] Solid Organ Transplant Clinical Specialist Contact via [employer] Secure Chat * Froylan Hendrickson MD - 11/01/2024 8:04 AM EDT Liver Transplant Surgery Progress Note Name: Blair Gilbert CSN: [id number] Date: 11/01/2024 8:06 AM OR Date: 10/25/2024 [...] at 10/31/2024 4:38 PM EDT US Duplex Zxz-Lwo-Mkvpqpd Comp Result Date: 10/31/2024 IMPRESSION: RIGHT UPPER [...] 10/25/2024 - 10/27/2024. Plan: Liver transplant recipient ([facility]-HCC) [Z94.4] Neuro: - Multimodal pain control: [...] 3:24 PM EDT TXP - Follow Up [facility] Medical Nutrition Therapy Transplant Brief [...] Boost VHC- very high calorie protein supplement ([facility] only) Pertinent [...] Based on DBW of 93.1 kg Kcals/day: 2975-3624 (25-30 kcals/kg) Protein g/day: 140-190 (1.5-2.0 g/kg) [...] Dietitian - Solid Organ Transplant Contact via [employer] Chat * Keon Dobson - 10/31/2024 2:35 PM EDT [facility] Spiritual Care Volunteer Visit PATIENT NAME: Blair Gilbert ROOM:80/U8025 Shinto Affiliation:Denominational Blair Gilbert was visited by a volunteer today. No needs requiring a visit from a staff dialysis nurse were expressed at that time. Care Provided: Communion, Prayer/ blessing Please page our service at [phone] as needs arise for patient and/or family. Fr Dean Dobson Denominational dialysis nurse Spiritual Care Dept * Brittany Horne PT - 10/31/2024 1:42 PM EDT Physical Therapy Reason Patient Not Seen Name: Blair Gilbert : 1985 Attending Physician: Lydia Sanchez MD Admission Diagnosis: Liver transplant recipient ([facility]-HCC) [Z94.4] Date: 10/31/2024 Precautions: Precautions: none [...] issued by OT: Long-handled sponge, Sock aid, Senior Report Developer, Other (comment) Equipment issued by OT comment: leg elevator examiner and adjuster Assessment Assessment: Decreased ADL status, Decreased IADLs, [...] IADL task (Goal met and continued 10/31) Senior Living Goal : Pt will complete bathing assessment and transfer [facility] goal to be met in: 2 weeks [...] Alcoholic cirrhosis of liver (CMS-HCC) Esophageal varices ([facility]-HCC) Hepatorenal syndrome ([facility]-H[facility]) Hypertension Other hyperlipidemia 07/26/2024 Renal cell [...] Problem List Diagnosis Decompensated cirrhosis ([facility]) Acute kidney injury superimposed on CKD ([facility]) Alcohol use disorder Metabolic encephalopathy Hypertension Other hyperlipidemia Thrombocytopenia ([facility]) Renal mass, left Abdominal pain Hypokalemia CKD (chronic kidney disease) stage 4, GFR 15-29 ml/min ([facility]) Metabolic acidosis with normal anion gap and bicarbonate losses GERD (gastroesophageal reflux disease) Hypothyroidism Itching Anemia BRBPR (bright red blood per rectum) SBP (spontaneous bacterial peritonitis) ([facility]) C Diff Diarrhea C. difficile diarrhea Neck [...] 10/30/24699 - 10/31/2465810/31/24699 - 11/01/24 0659 Shift 9458-9641 2445-8380 9772-3658 24 Hour Total 3108-5066 8419-6079 4447-8097 24 Hour Total INTAKE P.O. 240 240 P.O. 240 240 Shift Total(mL/kg) 240(1.9) 240(1.9) OUTPUT Urine(mL/kg/hr) 1850(1.8) 600(0.6) 600(0.6) 3050(1) 350 350 Urine 800 618 880 5228 350 350 Urine Occurrence 2 x 2 [...] with further concerns Lavell Kramer MD 10/31/[phone] * Priti Geiger CNP - 10/31/2024 10:06 AM EDT Liver Transplant Surgery Progress Note Name: Blair Gilbert CSN: [id number] Date: 10/31/2024 10:06 AM OR Date: 10/25/2024 [...] 10/28/24 1109 LACTATE 0.3* Imaging US Duplex Dba-Ifw-Jsgpskz Comp Result Date: 10/28/2024 IMPRESSION: ABDOMINAL ULTRASOUND [...] 10/25/2024 - 10/27/2024. Plan: Liver transplant recipient ([facility]-HCC) [Z94.4] Neuro: - Multimodal pain control: [...] MD PhD Transplant Surgery * Caron Santos, SPEEDER FRAME TENDER - 10/31/2024 9:30 AM EDT Images from the original note were not included. Transplant Nephrology Progress Note Patient: Blair Gilbert [id number] 8025/[id number] Date of Admit: 10/25/2024. 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 Lauren Santos, DNP, SOFTWARE SUPPORT ENGINEER, ATHLETICS DIRECTOR- Transplant Nephrology [phone] Preferred contact: secure chat The HPI, ROS, [...] 0659 10/30/24 07 - 10/31/24 0659 Shift 7054-6365 2074-0096 2563-5549 24 Hour Total 4535-1073 4067-3047 8549-8398 24 Hour Total INTAKE P.O. 240 240 480 P.O. 240 240 480 IV Piggyback 87.2 87.2 Volume (mL) (micafungin (MYCAMINE) 50 mg in sodium chloride 0.9 % 100 mL Cleg8Wbv IVPB) 87.2 87.2 Shift Total(mL/kg) 240(2) 327.2(2.7) 567.2(4.4) OUTPUT Urine(mL/kg/hr) 600(0.6) 1175(1.2) 450(0.4) 2225(0.7) 550 550 Output (mL) (IUC (Berkowitz) Triple-lumen (3-Way) 18 Fr.) 600 4375 686 3101 550 550 Drains 175 245 100 520 [...] month of prophylaxis Lavell Kramer MD 10/30/[phone] * Priti Geiger, SPEEDER FRAME TENDER - 10/30/2024 10:36 AM EDT Liver Transplant Surgery Progress Note Name: Blair Gilbert CSN: [id number] Date: 10/30/2024 10:37 AM OR Date: 10/25/2024 [...] 1109 LACTATE 0.5 0.3* Imaging US Duplex Gse-Mak-Yvoyaie Comp Result Date: 10/28/2024 IMPRESSION: ABDOMINAL ULTRASOUND [...] 10/25/2024 - 10/27/2024. Plan: Liver transplant recipient ([facility]-H[facility]) [Z94.4] Neuro: - Multimodal pain control: [...] Transplant Nephrology Progress Note Patient: Blair Gilbert [id number] 8025/[id number] Date of Admit: 10/25/2024. 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 Lauren Santos, DNP, SOFTWARE SUPPORT ENGINEER, ATHLETICS DIRECTOR- Transplant Nephrology [phone] Preferred contact: secure chat The HPI, ROS, [...] EDT Pt seen, examined, and discussed with SPEEDER FRAME TENDER on 10/30/2024. reviewed the chart including the [...] 3:36 PM EDT TXP - Follow Up [facility] Medical Nutrition Therapy Follow-Up Diet [...] I/O: +23.3L net volume. 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 Admit Weight: 270 lb (122.5 kg) [...] Based on DBW of 93.1 kg Kcals/day: 6983-0265 (25-30 kcals/kg) Protein g/day: 140-190 (1.5-2.0 g/kg) [...] Dietitian - Solid Organ Transplant Contact via [employer] Chat * Anita Crystal, PT - 10/29/2024 2:04 PM EDT Physical Therapy Initial Assessment Name: Blair Gilbert : 1985 Attending Physician: Harvey Domínguez III, MD Admission Diagnosis: Liver transplant recipient (CMS-HCC) [Z94.4] Date: 10/29/2024 Room: [place] [address] [address] Reviewed Pertinent hospital course: Yes Hospital Course [...] with functional mobility at: 4/10 or less Senior Living Goal : Pt will ambulate 250' mod [...] liver (CMS-HCC) Esophageal varices (CMS-HCC) Hepatorenal syndrome ([facility]-HCC) Hypertension Other hyperlipidemia 07/26/2024 Renal cell [...] Problem List Diagnosis Decompensated cirrhosis [place] Acute kidney injury superimposed on CKD ([facility] Alcohol use disorder Metabolic encephalopathy Hypertension Other hyperlipidemia Thrombocytopenia ([facility]) Renal mass, left Abdominal pain Hypokalemia CKD (chronic kidney disease) stage 4, GFR 15-29 ml/min ([facility]) Metabolic acidosis with normal anion gap and bicarbonate losses GERD (gastroesophageal reflux disease) Hypothyroidism Itching Anemia BRBPR (bright red blood per rectum) SBP (spontaneous bacterial peritonitis) ([facility] C Diff Diarrhea C. difficile diarrhea Neck pain with history of cervical spinal surgery * Shanel Pabon, OT - 10/29/2024 1:23 PM EDT Occupational Therapy Initial Assessment Name: Blair Gilbert : 1985 Attending Physician: Harvey Domínguez III, MD Admission Diagnosis: Liver transplant recipient ([facility]) [Z94.4] Date: 10/29/2024 Room: [place] [address] [address] Reviewed Pertinent hospital course: Yes Hospital Course [...] Intervention(s): Ambulation/increased activity;Repositioned Therapist reported pain to: lithograph printer Oxygen Supplemental Oxygen Supplemental Oxygen: None (Room [...] distance ambulation in prep for IADL task Cannon Pinion Adjuster Goal : Pt will complete bathing assessment and transfer [facility] goal to be met in: 2 weeks [...] stage 4, GFR 15-29 ml/min ([facility]) Metabolic acidosis with normal anion gap and bicarbonate losses GERD (gastroesophageal reflux disease) Hypothyroidism Itching Anemia BRBPR (bright red blood per rectum) SBP (spontaneous bacterial peritonitis) ([facility]) C Diff Diarrhea C. difficile diarrhea Neck pain with history of cervical spinal surgery * Caron Santos CNP - 10/29/2024 10:30 AM EDT Images from the original note were not included. Transplant Nephrology Progress Note Patient: Blair Gilbert [id number] SICU-28/IC-28 Date of Admit: 10/25/2024. 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 Lauren Santos, DNP, SOFTWARE SUPPORT ENGINEER, ATHLETICS DIRECTOR- Transplant Nephrology [phone] Preferred contact: secure chat The HPI, ROS, [...] EDT Pt seen, examined, and discussed with SPEEDER FRAME TENDER on 10/29/2024. reviewed the chart including the labs and imaging studies. My additional comments below. 39 y.o. 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 S/p SLK 10/25-10/26 Has great UOP 4.2L; 720 drain output Aaron Gonzalez MD, MEd, FASN * Kenyetta Hartman - 10/29/2024 10:07 AM EDT Liver Transplant Surgery Progress Note Name: Blair Gilbert CSN: [id number] Date: 10/29/2024 10:08 AM OR Date: 10/25/2024 [...] LACTATE 0.4* 0.5 0.3* Imaging US Duplex Grs-Pyv-Cdephhv Comp Result Date: 10/28/2024 IMPRESSION: ABDOMINAL ULTRASOUND [...] Waveforms within normal limits. Report Verified by: Albetro Rodriguez MD at 10/27/2024 10:38 AM EDT US Duplex Jll-Hmp-Dhkpsiw Comp Result Date: 10/27/2024 IMPRESSION: RIGHT UPPER [...] 10/25/2024 - 10/27/2024. Plan: Liver transplant recipient ([facility]) [Z94.4] Neuro: - Multimodal pain control: [...] SQH, SCDs DISPO: floor KENYETTA HARTMAN, MS4 [facility] General Surgery 10:08 AM 10/29/2024 Cosigned [...] 0659 10/29/24 07 - 10/30/24 0659 Shift 9163-8064 0432-3334 7364-2744 24 Hour Total 5727-0373 0034-8550 4333-6735 24 Hour Total INTAKE P.O. 240 0 [...] IV infusion) 253.9 374.7 775.6 1404.2 Blood 3447 379 9996 Albumin 750 750 Volume (Transfuse RBC Transfusion Rate: Per dept routine) 310 310 Volume (Transfuse RBC Transfusion Rate: Per dept routine) 271 271 IV Piggyback 918.4 758 67 8235.4 Volume (mL) (micafungin (MYCAMINE) 50 mg in sodium chloride 0.9 % 100 mL Qujx0Nzq IVPB) 99.9 99.9 Volume (mL) (albumin human [...] month of prophylaxis Lavell Kramer MD 10/29/[phone] * John Moreno MD - 10/29/2024 6:47 AM EDT SURGICAL ICU PROGRESS NOTE 10/29/2024 6:47 AM Name: Blair Gilbert CSN: [id number] HPI: Blair Gilbert is a 39 y.o. [...] to 4 times a day. DEXCOM G7 EARLY CHILDHOOD COORDINATOR Misc Use reader as directed. DEXCOM [...] times a day. naloxone (NARCAN) 4 mg/actuation [place] Apply 1 spray in one nostril if [...] 37 37 35 PO2ART 245* 182* 92 WIP5WCA 22 21* 21* BEART -4.2* -4.8* -4.6* [...] at baseline or with provocation, shows no xhskk-yd-jysq atrial level shunt. - Pulmonary arteries: Systolic [...] Home pantoprazole 40mg daily, continue Last BM: CAMP NURSE - suppository today Bowel regimen: Miralax today, [...] results for input(s): TEGANGLE , TEGKTIME , LWLAKOYU09 , TEGMAXAMPL , TEGRTIME , CBMZ in [...] in sodium chloride 0.9 % 100 mL Baci2Zfa IVPB 50 mg Every 24 hours 10/27/2024 -- Admin Instructions: PROTECT FROM LIGHT FLUSH LINE w/NSS PRIOR TO ADMINISTRATION Use Fayu6Khb Adapter - Mix Thoroughly Before Administration Route: [...] BID Continuous Infusions: HYDROmorphone 6 mg/30 mL OCCUPATIONAL HEALTH NURSING DIRECTOR norepinephrine 4 mcg/min (10/27/24 2318) sodium chloride [...] - 10/28/2465810/28/24 07 - 10/29/24 0659 Shift 5850-8443 4506-1647 6068-6395 24 Hour Total 5189-5179 3171-0270 7220-5905 24 Hour Total INTAKE P.O. 0 120 [...] in sodium chloride 0.9 % 100 mL Llsq5Les IVPB) 100 100 Volume (mL) (albumin human 5%) 126 126 Volume (mL) (potassium chloride (KCl)/Sterile water 50 mL 20 mEq/50 mL IVPB 20 mEq) 100 100 Volume (mL) (AMPicillin 1 g in sodium chloride 0.9% 100 mL IVPB (Vjkh7Ypf)) 100.1 57 42.9 200 Volume (mL) (mycophenolate (CELLCEPT) 500 mg in dextrose 5% in water (D5W) 50 mL IVPB) 50 5.3 55.3 Shift Total(mL/kg) 2079.3(17) 1161(9.5) 787.3(6.4) 4027.6(32.9) OUTPUT Urine(mL/kg/hr) 2195(2.2) 1000(1) 900(0.9) 4095(1.4) 490 490 Urine 360 360 Output (mL) (IUC (Berkowitz) Triple-lumen (3-Way) 18 Fr.) 1835 3380 158 5373 490 490 Emesis/NG output 50 50 Drainage [...] month of prophylaxis Lavell Kramer MD 10/28/[phone] * Caron Santos CNP - 10/28/2024 9:00 AM EDT Images from the original note were not included. Transplant Nephrology Progress Note Patient: Blair Gilbert [id number] SICU-28/USIC-28 Date of Admit: 10/25/2024. 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 Lauren Santos, SAMSON, SOFTWARE SUPPORT ENGINEER, ATHLETICS DIRECTOR- Transplant Nephrology [phone] Preferred contact: secure chat The HPI, ROS, [...] SLK 10/25-10/26 Has great UOP 4.2L Aaron Gonzalze MD, MEd, FASN * Shay Plata MD - 10/28/2024 7:41 AM EDT Liver Transplant Surgery Progress Note Name: Blair Gilbert CSN: [id number] Date: 10/28/2024 11:05 AM OR Date: 10/25/2024 - 10/27/2024 Subjective: 1 Day Post-Op Received one unit pRBCs overnight On low dose levo this morning Increasing tachycardia Reports worsening pain, on OCCUPATIONAL HEALTH NURSING DIRECTOR Tolerated sips of clears No nausea/vomiting, no [...] Oral BID Continuous: HYDROmorphone 6 mg/30 mL OCCUPATIONAL HEALTH NURSING DIRECTOR norepinephrine Stopped (10/28/24 0637) sodium chloride 0.9 [...] at 10/27/2024 10:38 AM EDT US Duplex Dgd-Dbo-Cxxutju Comp Result Date: 10/27/2024 IMPRESSION: RIGHT UPPER [...] 10/25/2024 - 10/27/2024. Plan: Liver transplant recipient ([facility]) [Z94.4] Neuro: - Multimodal pain control: dilaudid OCCUPATIONAL HEALTH NURSING DIRECTOR, tylenol, robaxin. PRN dilaudid for breakthrough CV: [...] SCDs DISPO: SICU SHAY PLATA MD, MS4 [facility] Surgery 11:05 AM 10/28/2024 Cosigned by Lydia [...] 10/28/2024 6:17 AM Name: Blair Gilbert CSN: [id number] HPI: Blair Gilbert is a 39 y.o. [...] day. blood-glucose meter (TRUE METRIX GLUCOSE METER) [facility] Use to test blood sugar up to 4 times a day. DEXCOM G7 EARLY CHILDHOOD COORDINATOR Misc Use reader as directed. DEXCOM [...] and at bedtime. lancets (ACCU-CHEK SOFTCLIX LANCETS) [facility] Use to test blood sugar up to 4 times a day. methocarbamoL (ROBAXIN) 500 MG tablet Take 1 tablet (500 mg total) by mouth 3 times a day. naloxone (NARCAN) 4 mg/actuation [place] Apply 1 spray in one nostril if [...] Oral BID Continuous: HYDROmorphone 6 mg/30 mL OCCUPATIONAL HEALTH NURSING DIRECTOR insulin regular in 0.9 % sodium chloride [...] 37 37 35 PO2ART 245* 182* 92 BST7QZE 22 21* 21* BEART -4.2* -4.8* -4.6* [...] at baseline or with provocation, shows no zppgd-iv-bosi atrial level shunt. - Pulmonary arteries: Systolic [...] while intubated,convert to PO today Last BM: CAMP NURSE Bowel regimen: Miralax today, hold senna til [...] ml IV Fluids: HYDROmorphone 6 mg/30 mL OCCUPATIONAL HEALTH NURSING DIRECTOR insulin regular in 0.9 % sodium chloride, [...] results for input(s): TEGANGLE , TEGKTIME , WSIFJPPZ43 , TEGMAXAMPL , TEGRTIME , CBMZ in [...] in sodium chloride 0.9% 100 mL IVPB (Ddoa6Zlj) (Completed) 1 g Every 6 hours scheduled 10/26/2024 10/28/2024 Admin Instructions: Dosage may need to be adjusted for renal dysfunction. Full dose is 1g IV q6h Use Exbp2Qnj Adapter - Mix Thoroughly Before Administration Notes to Pharmacy: On operating room orderly estimated creatinine clearance is 35.9 mL/min (A) [...] in sodium chloride 0.9 % 100 mL Fvja5Dqz IVPB 50 mg Every 24 hours 10/27/2024 -- Admin Instructions: PROTECT FROM LIGHT FLUSH LINE w/NSS PRIOR TO ADMINISTRATION Use Yeut3Gyj Adapter - Mix Thoroughly Before Administration Route: [...] the Caprini Risk Score of 10 and [facility] transplant protocol, I recommend discharging on [...] Solid Organ Transplant Clinical Specialist Contact via [employer] Secure Chat Preferred O. [phone] * Chinedu Almeida SUPERVISOR ESTIMATOR AND DRAFTER - 10/27/2024 1:10 PM EDT Patient extubated [...] Yes MD Order No SBT No Yes [place] Coma Scale > 8 Yes Lab Results Component Value Date PHART 7.36 10/27/2024 PCO2 37 10/27/2024 PO2ART 245 (H) 10/27/2024 KZS2GOZ 22 10/27/2024 BEART -4.2 (L) 10/27/2024 ABM8JTY 96.5 10/27/2024 L9YNFSAP 100 10/27/2024 Based on this SBT assessment [...] Surgery Progress Note Name: Blair Gilbert CSN: [id number] Date: 10/27/2024 11:40 AM OR Date: 10/25/2024 - 10/27/2024 Subjective: * Day of Surgery * Remains intubated in SICU Sedated but appropriately nods to questions No acute distress Objective: BP 100/48 Pulse 89 Temp 99 ??F (37.2 ??C) ([place]) Resp 9 Ht 6' 4 (1.93 m) [...] at 10/27/2024 10:38 AM EDT US Duplex Wkg-Mrm-Wfaficu Comp Result Date: 10/27/2024 IMPRESSION: RIGHT UPPER [...] 10/27/2024. Problem List[1] Plan: Liver transplant recipient ([facility]) [Z94.4] Neuro: - Propofol/fentanyl CV: - [...] SQH, SCDs DISPO: SICU KENYETTA HARTMAN, MS4 [facility] Surgery 11:40 AM 10/27/2024 [1] Patient Active Problem List Diagnosis Decompensated cirrhosis ([facility]) Acute kidney injury superimposed on CKD [place] Alcohol use disorder Metabolic encephalopathy Hypertension Other hyperlipidemia Thrombocytopenia ([facility]) Renal mass, left Abdominal pain Hypokalemia CKD (chronic kidney disease) stage 4, GFR 15-29 ml/min ([facility] Metabolic acidosis with normal anion gap and bicarbonate losses GERD (gastroesophageal reflux disease) Hypothyroidism Itching Anemia BRBPR (bright red blood per rectum) SBP (spontaneous bacterial peritonitis) [place] C Diff Diarrhea C. difficile diarrhea Neck [...] MD Transplant Surgery (cell) * Chinedu Almeida, SUPERVISOR ESTIMATOR AND DRAFTER - 10/27/2024 11:14 AM EDT Placed on [...] 10/27/2024 7:16 AM Name: Blair Gilbert CSN: [id number] HPI: Blair Gilbert is a 39 y.o. [...] for 30 days. FREESTYLE NIDA 3 READER [facility] Use 1 each as directed [...] in the morning and at bedtime. lancets [facility] Use to test blood sugar up to 4 times a day. Dx: 9.65. Brand per pharmacy / insurance preference. methocarbamoL (ROBAXIN) 500 MG tablet Take 1 tablet (500 mg total) by mouth 3 times a day. mycophenolate (CELLCEPT) 250 mg capsule Take 2 capsules (500 mg total) by mouth 2 times a day. naloxone (NARCAN) 4 mg/actuation [place] Apply 1 spray in one nostril if [...] 47* 36 37 PO2ART 127* 91 137* ULT1GPL 21* 22 20* BEART -5.4* -3.9* -6.4* [...] at baseline or with provocation, shows no grjdy-jz-udxp atrial level shunt. - Pulmonary arteries: Systolic [...] IV pantoprazole while intubated, NPO Last BM: CAMP NURSE Bowel regimen: Senna/Miralax when able Nausea: Zofran [...] 10/27/2024 0715 Gross per 24 hour Intake 85424.82 ml Output 7060 ml Net 6224.82 ml [...] results for input(s): TEGANGLE , TEGKTIME , YNPOUGAL17 , TEGMAXAMPL , TEGRTIME , CBMZ in [...] in sodium chloride 0.9% 100 mL IVPB (Nnmq2Fiq) 1 g Every 6 hours scheduled Admin Instructions: Dosage may need to be adjusted for renal dysfunction. Full dose is 1g IV q6h Use Pywx5Ikv Adapter - Mix Thoroughly Before Administration Notes to Pharmacy: On operating room orderly estimated creatinine clearance is 35.9 mL/min (A) (based on SCr of 3.87 mg/dL (H)). Route: Intravenous Linked Group 1: Placed in And Linked Group cefTRIAXone (ROCEPHIN) 2 g in sodium chloride 0.9 % 100 mL Ozqm4Wam Continuous - One Step Medications Only 10/27/2024 [...] R IJ Mac Arterial Line? R radial [place] Urinary Catheter? Berkowitz - Reason: Adequate I/O [...] (See Comments) Became Manic * Hillary Fernandes, aTniD - 10/27/2024 6:59 AM EDT Transplant Pharmacy [...] Solid Organ Transplant Clinical Specialist Contact via [employer] Secure Chat Preferred * Simeon Guzman RN [...] 10/26/2024 0725 Gross per 24 hour Intake 68371.32 ml Output 2075 ml Net 33090.32 ml Consitutional: Intubated/sedated HEENT: Mucous membranes moist [...] History and Physical Patient: Blair Gilbert CSN: [id number] History CC: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 naloxone (NARCAN) 4 mg/actuation [place] Apply 1 spray in one nostril if [...] Resource Strain: Low Risk (07/09/2024) Received from [facility] Overall Financial Resource Strain (CARDIA) Difficulty of [...] No Physical Activity: Unknown (07/14/2024) Received from [facility] Exercise Vital Sign Days of Exercise per Week: Patient unable to answer Minutes of Exercise per Session: Not on file Stress: Patient Unable To Answer (07/14/2024) Received from [facility] [place] of Occupational Health - Occupational Stress Questionnaire Feeling of Stress : Patient unable to answer Social Connections: Patient Unable To Answer (07/14/2024) Received from [facility] Social Connection and Isolation Panel [NHANES] Frequency of Communication with Friends and Family: Patient unable to answer Frequency of Social Gatherings with Friends and Family: Patient unable to answer Attends Shinto Services: Patient unable to answer Active Member [...] admitted to SICU post-op. LEANDRA OG MD [facility] Liver Transplant Pager: [phone] 8:24 PM 10/25/2024 Cosigned by Harvey [...] Name: Blair Gilbert Date: 1985 Billing #: [id number] Date of Procedure: 10/25/2024 Diagnosis: End Stage Renal Disease Procedure: 1. Donor Kidney Transplant 2. Back Bench Preparation Donor Kidney 3. Baseline Kidney transplant biopsy 4. Insertion of Indwelling Stent 5. Removal of Perihepatic packing Surgeons * Flaquito Ba MD School Child Care Attendant MD Shayan Findings: Low Hockey stick incision [...] donor was ABO O and UNOS ID [id number], Match Run [id number] (K). This donor was a Donor after [...] was then wanded with the lap detection programs assistant. The incision was ex tented 2 [...] and closure. Flaquito Ba MD Transplant Surgeon floor inspector * Flaquito Ba MD - 10/27/2024 6:15 AM EDT TRANSPLANT KIDNEY with bile duct reconstruction Brief Op Note Blair Gilbert 10/27/2024 Pre-op Diagnosis: Acute kidney injury superimposed on CKD (CMS-HCC) [N17.9, N18.9] Post-op Diagnosis: same Procedure(s): TRANSPLANT KIDNEY Surgeon(s): MD Harvey Washington III, MD Anesthesia: General Endotracheal Staff: Associate Spa Director: Chinedu Quinn RN Scrub Person: ST Angela Fellow: Kemar Sahni MD 2nd Associate Spa Director: Marty Clark RN 3rd Associate Spa Director: Candis Mcdaniel RN FINDINGS Berkowitz 3 day Drains: Intraabdominal (perihepatic) UNOS ID [id number], Match Run [id number] Kid WIT 27 min Kid CIT 33 [...] (Berkowitz) Triple-lumen (3-Way) 18 Fr. (Active) Status [place] Drainage 10/26/241999 Collection Container Standard drainage bag [...] Washington III, MD Anesthesia: General Endotracheal Staff: Associate Spa Director: Chinedu Quinn RN Relief Associate Spa Director: Michela Amos RN Relief Scrub: Stephani Blake RN Scrub Person: ST Angela Fellow: Kemar Sahni MD 2nd Associate Spa Director: Marty Clark RN 3rd Associate Spa Director: Candis Mcdaniel RN Estimated Blood Loss: 300 [...] (Berkowitz) Triple-lumen (3-Way) 18 Fr. (Active) Status [place] Drainage 10/26/241999 Collection Container Standard drainage bag [...] day Drains: 2 Intraabdominal (perihepatic) UNOS ID [id number], Match Run [id number] Donor: young DCD NRP Kid WIT 27 [...] MD - 10/27/2024 12:00 AM EDT [facility] PATIENT NAME: BLAIR GILBERT DATE OF : 1985 CSN: [id number] PHYSICIAN: Harvey Domínguez III, MD ADMIT DATE: 10/25/2024 DICTATED BY: Harvey Domínguez III, MD SURGERY DATE: 10/27/2024 OPERATIVE REPORT SURGEON: Harvey Domínguez III, MD COAL AND ASH SUPERVISOR SURGEON: Kemar Sahni MD. PREOPERATIVE DIAGNOSIS: Open [...] were made hemostatic with the argon beam catalyst operator chief. We assessed the flows of the portal [...] a mucocele formation. We then performed a eylh-aj-fvdw choledochocholedochostomy in an end to end fashion [...] small umbilicalhernia that was closed with a qfsaas-zx-rzxbu 0 PDS suture. At this point, we [...] immediate complications. MD TEODORA HARMON IIIQ/AQ JOB#: [id number] * Harvey Domínguez III, MD - 10/26/2024 7:00 AM EDT Patient Name: Blair Gilbert Date: 1985 Billing #: [id number] Date of Procedure: 10/25/2024 - 10/26/2024 Diagnosis: Chronic Hepatic Failure without coma Procedure: 1. Orthotopic Liver Transplant 2. Back Bench Preparation Donor Liver 3. Temporary portocaval shunt 4. Perihepatic packing for control of hemorrhage 5. Placement of external choledochal stent 6. Temporary abdominal closure Attending surgeons: Harvey Domínguez III, MD School Child Care Attendant Surgeon(s): Sveta Judge MD Findings: Whole organ placed in piggyback fashion with suprahepatic cava of donor to common orifice of all three hepatic veins for IVC anastomosis. Donor main portal vein to recipient main portal vein. Donor common hepatic artery to recipient right hepatic artery. Temporary abdominal with perihepatic packingfor control of hemorrhage. Externalization of bile duct with 8 Croatian pediatric feeding tube. Portal Flow Modulation No [...] This donor was ABO O and UNOSID [id number], Match Run [id number]. This was a 42-year-old donation after circulatory [...] After completion of the outflow anastomosis, a Setswana clamp was placed across the donor suprahepatic [...] artery flows were then measured with the [employer] device. The portal flow was 3.4 L/min [...] do a temporary abdominal closure. An 8 Croatian pediatric feeding tube was brought through the [...] Sveta Alves III, MD Anesthesia: General Staff: Associate Spa Director: Mak Maher RN; Marty Clark RN Scrub Person: ST Angela Resident: Thuy Leon MD ware server: Jose Daniel Arana RRT Estimated Blood Loss: [...] Number of days: 5 Surgery Information: -UNOS#: [id number] -ABO: O to O -Recipient: SLK candidate [...] 1:19 PM EDTAssociated Order(s): IP CONSULT TO ENGINEERING PROFESSOR [facility] Transplant Discharge Education Note Assessment: [...] Gomez, OLIVE, RN, NPD- Diabetes Education Office [phone] Schedule: M-F 8:00am-4:30pm * Ben Weiss RD - 10/27/2024 4:06 PM EDTAssociated Order(s): IP CONSULT TO NUTRITION SERVICES; IP CONSULT TO NUTRITION SERVICES TXP - Initial [facility] Medical Nutrition Therapy Reason(s) for [...] I/O: +23.2L net volume. Last BM Date: (CAMP NURSE). Admit Weight: 270 lb (122.5 kg) Current [...] Based on DBW of 93.1 kg Kcals/day: 4447-6488 (25-30 kcals/kg) Protein g/day: 140-190 (1.5-2.0 g/kg) [...] Dietitian - Solid Organ Transplant Contact via [employer] Chat * Lavell rKamer MD - 10/27/2024 11:09 AM EDTAssociated Order(s): INPATIENT CONSULT TO TRANSPLANT INFECTIOUS DISEASES Infectious Disease Consultation Patient: Blair Gilbert CSN: [id number] Assessment & Plan 39 y.o. M s/p [...] blood cx's if febrile Lavell Kramer MD [phone] Chief Complaint Long Qtc History of Present [...] Resource Strain: Low Risk (07/09/2024) Received from [facility] Overall Financial Resource Strain (CARDIA) Difficulty of [...] No Physical Activity: Unknown (07/14/2024) Received from [facility] Exercise Vital Sign Days of Exercise per Week: Patient unable to answer Minutes of Exercise per Session: Not on file Stress: Patient Unable To Answer (07/14/2024) Received from [facility] [place] of Occupational Health - Occupational Stress Questionnaire Feeling of Stress : Patient unable to answer Social Connections: Patient Unable To Answer (07/14/2024) Received from [facility] Social Connection and Isolation Panel [NHANES] Frequency of Communication with Friends and Family: Patient unable to answer Frequency of Social Gatherings with Friends and Family: Patient unable to answer Attends Shinto Services: Patient unable to answer Active Member [...] to 4 times a day. DEXCOM G7 EARLY CHILDHOOD COORDINATOR Misc Use reader as directed. DEXCOM [...] and at bedtime. lancets (ACCU-CHEK SOFTCLIX LANCETS) [facility] Use to test blood sugar up to 4 times a day. methocarbamoL (ROBAXIN) 500 MG tablet Take 1 tablet (500 mg total) by mouth 3 times a day. mycophenolate (CELLCEPT) 250 mg capsule Take 2 capsules (500 mg total) by mouth 2 times a day. naloxone (NARCAN) 4 mg/actuation [place] Apply 1 spray in one nostril if [...] CKD IIIb/IV: - Presumed s/t HRS - Rig Builder Helper: Yovanny Curran at [facility] Allograft Function: S/p SLK 10/25- (kidney [...] 10/27/2024 1500 Gross per 24 hour Intake 72099.28 ml Output 5950 ml Net 6403.28 ml Heme/Anemia: WBC: 5.8 Goal HgB 10-12 mg/dL Hgb: 7.5 Plt 50 Iron: 128 on 10/25/2024 Ferritin 623.2 on 10/25/2024 TIBC: SEE COMMENT on 10/25/2024 % Iron Saturation: SEE COMMENT on 10/25/2024 YlqehfcK21: No results found for requested labs within [...] - Monitor renal function. No indications for SUPERVISOR ESTIMATOR AND DRAFTER. Good UOP - Noted KT US WNL [...] preliminary until attending attestation. Lauren Santos, DNP, SOFTWARE SUPPORT ENGINEER, ATHLETICS DIRECTOR- Transplant Nephrology [phone] Preferred contact: secure chat [1] Allergies Allergen [...] Gonzalez MD, MEd, FASN * Marcellus Hebert, CLINICAL EVALUATOR, INSTRUCTOR PHYSICAL EDUCATION - 10/27/2024 10:21 AM EDT HEALTH Care Management/Social Work Assessment Patient Information Patient Name: Blair Gilbert Hospital Day: 2 Inpatient/Observation: Inpatient Admit Date: 10/25/2024 Admission Diagnosis: Liver transplant recipient ([facility]) [Z94.4] Attending provider: Harvey Domínguez III, MD PCP: Enedina Mcguire NP Home Pharmacy: [facility] [address] [place], [place] [address] [address] [facility] [address] [facility] [address] Issues related to obtaining medications: N/A Payor Information Medical Insurance Coverage: Payor: [facility] / Plan: [facility] / Product Type: *No Producttype* [...] History: 12 weeks of CD Treatement at [facility] Do you need Substance Abuse Treatment [...] Was any abuse reported by patient?: No [place] Status & Connection to VA Services Status [...] resides with his spouse at their [facility] [place]. 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 Patient's LNOK:Spouse, Abdiaziz Gilbert, Patient has no current or past history of suicidal/homicidal ideation. Patient has a history of mental health diagnoses, PTSD and Generalized Anxiety Disorder. Patient is connected with TransplantPsychiatrist and prescribed Prozac. Patient has a history of alcohol use and has completed 12 weeksof CD Treatment at [facility]. Spouse explained that he will complete a 6 month virtual program post transplant but could not recall the name of the program. Patient has no current tobacco use. No previous need or recommendation for home health care services and no previous placements at fpc facility and/or inpatient rehab program. Patient has [...] as appropriate. NUBIA Escalera, RONALDO Phone Number: [phone] * John Moreno MD - 10/26/2024 3:41 AM EDT SURGICAL ICU CONSULT NOTE 10/26/2024 3:41 AM Name: Blair Gilbert CSN: [id number] HPI: Blair Gilbert is a 39 y.o. [...] at 9:00 PM naloxone (NARCAN) 4 mg/actuation [place] Apply 1 spray in one nostril if [...] % 250 mL infusion 2.5 mcg/min (10/26/24 7717) insulin regular in 0.9 % sodium chloride [...] input(s): PHART , PCO2 , PO2ART , HEF3FQK , BEART in the last 72 hours. [...] at baseline or with provocation, shows no rdenf-bz-gpgo atrial level shunt. - Pulmonary arteries: Systolic [...] IV pantoprazole while intubated, NPO Last BM: CAMP NURSE Bowel regimen: Senna/Miralax when able Nausea: Zofran PRN FLUID/ELECTROLYTES Recent Labs 10/25/24 2217 NA 137 K 2.1* CL 100 CO2 20* BUN 74* CREATININE 3.87* CALCIUM 9.3 PHOS 5.9* GLUCOSE 114* Intake/Output Summary (Last 24 hours) at 10/26/2024 0341 Last data filed at 10/26/2024 0326 Gross per 24 hour Intake 62235 ml Output 675 ml Net 02484 ml IV Fluids: EPINEPHrine (ADRENALIN) 10 mg in sodium chloride 0.9 % 250 mL infusion, Last Rate: 2.5 mcg/min (10/26/24 7666) insulin regular in 0.9 % sodium chloride norepinephrine, Last Rate: 18 mcg/min (10/26/24 378) vasopressin, Last Rate: 0.04 Units/min (10/26/24 0614) A/P: - Goal UOP >0.5 cc/kg/hr - [...] results for input(s): TEGANGLE , TEGKTIME , FXWVAIVP11 , TEGMAXAMPL , TEGRTIME , CBMZ in [...] in sodium chloride 0.9% 100 mL IVPB (Nihe5Slf) 2 g Every 6 hours 10/26/2024 -- Admin Instructions: Use Ngtr6Msr Adapter - Mix Thoroughly Before Administration Notes to Pharmacy: On operating room orderly estimated creatinine clearance is 35.9 mL/min (A) (based on SCr of 3.87 mg/dL (H)). Route: Intravenous AMPicillin 2 g in sodium chloride 0.9% 100 mL IVPB (Efsr1Zur) 2 g Once 10/26/2024 -- Admin Instructions: Use Vcns9Hvn Adapter - Mix Thoroughly Before Administration Notes to Pharmacy: On operating room orderly estimated creatinine clearance is 35.9 mL/min (A) (based on SCr of 3.87 mg/dL (H)). Route: Intravenous cefTRIAXone (ROCEPHIN) 2 g in sodium chloride 0.9 % 100 mL Auvi4Yjq (Completed) 2 g Once 10/25/2024 10/26/2024 Admin Instructions: Use Tdgq5Qal Adapter - Mix Thoroughly Before Administration Route: [...] R IJ Mac Arterial Line? R radial [place] Urinary Catheter? Berkowitz - Reason: Adequate I/O [...] 47 (H) 10/26/2024 PO2ART 127 (H) 10/26/2024 JVY3ATY 21 (L) 10/26/2024 BEART -5.4 (L) 10/26/2024 AET1GQW 94.6 (L) 10/26/2024 Y6PZKGZG 98 10/26/2024 P:F ratio = 363 CARDIOVASCULAR: [...] Acute Care Surgery, and Surgical Critical Care [facility] Academic Office [phone] For Transfers, call [phone] documented in this encounter Nursing Notes * [...] Escalera, RONALDO - 10/31/2024 11:34 AM EDT [facility] Case Management/Social Work Department Progress Note [...] PCP: Enedina Mcguire NP Home Pharmacy: [facility] [address] [place] [address] [address] [facility] [address] [facility] [address] [facility] [address] Replaced By [facility] [address] [facility] [id number] Medical Insurance Coverage: Payor: [employer] CARE / Plan: [employer] / [...] aware that there were no accepting C agencies([facility], [facility], [facility]) and patient would need to outpatient for PT/OT and labs. Discharge Plan Anticipated discharge plan: Home with HHC vs Home with outpatient Anticipated discharge date: 11/01 CM/SW will continue to follow and remain available for discharge planning needs. NUBIA Escalera, RONALDO Cell [phone] * Plan of Care - Paulette Flannery [...] cell carcinoma (CMS-HCC), Thrombocytopenia ([facility]), and Thyroid disease. PCP: Enedina Mcguire NP Home Pharmacy: [facility] [address] [place], [place] [address] [address] [address] [facility] [address] [facility] [address] [facility] 105 Replaced By [facility] [address] [facility] [id number] Medical Insurance Coverage: Payor: [facility] CARE / Plan: [employer] [...] MEREDITH submitted blanket HHC referral to [facility] [place], [facility], [facility], and [facility]. Awaiting responses. SW to followpending [...] for discharge planning needs. Citlaly Nova MSW, INSTRUCTOR PHYSICAL EDUCATION Inpatient Metal Mixer/Care Coordination [phone] * Plan of Care - Soco Yap [...] Escalera, RONALDO - 10/28/2024 2:29 PM EDT [facility] Case Management/Social Work Department Progress Note [...] PCP: Enedina Mcguire NP Home Pharmacy: [facility] [address] [address] [address] [facility] [address] [facility] [address] [facility] [address] [place] [id number] Medical Insurance Coverage: Payor: [employer] [facility] [facility] [...] discharge planning needs. NUBIA Escalera, RONALDO Cell [phone] * Plan of Care - Elaine Carrillo [...] at all times. Outcome: Completed Problem: Non-violent, avd-dpje-zozwxtryupj restraints Description: Less restrictive alternative interventions will [...] of medical procedures, or protection of medical physiologist access. Outcome: Completed * Plan of Care [...] foods as appropriate. Outcome: Progressing Problem: Non-violent, zvi-apfp-brcllexlsqi restraints Description: Less restrictive alternative interventions will [...] of medical procedures, or protection of medical physiologist access. Outcome: Progressing * Plan of Care - Shanel Shen RN - 10/27/2024 9:00 AM EDT Problem: Non-violent, syw-rtnx-qrzehtpydbd restraints Description: Less restrictive alternative interventions will [...] - 10/26/2024 7:41 PM EDT Problem: Non-violent, clg-jppa-jmubbleurqy restraints Description: Less restrictive alternative interventions will [...] of medical procedures, or protection of medical physiologist access. Outcome: Not Progressing Patient in bilateral [...] restraint flowsheet for further documentation. Problem: Non-violent, cgr-jnme-mvhflpqmyph restraints Description: Less restrictive alternative interventions will [...] of medical procedures, or protection of medical physiologist access. Outcome: Progressing * Plan of Care [...] Routine Acute kidney injury superimposed on CKD ([facility]) Release Upon Ordering for 1 Occurrences starting 10/27/2024 Fungus culture Microbiology Routine Acute kidney injury superimposed on CKD [place] Release Upon Ordering for 1 Occurrences starting 10/27/2024 Routine Culture plus Stain Microbiology Routine Acute kidney injury superimposed on CKD ([facility] Release Upon Ordering for 1 Occurrences starting [...] Routine 10/31/2024 11:59 AM EDT US DUPLEX AVF-MYDVJZ-QPTWWTB COMPLETE Routine 10/31/2024 10:19 AM EDT US [...] Routine 10/28/2024 5:31 PM EDT US DUPLEX [id number] COMPLETE STAT 10/28/2024 4:23 PM EDT US [...] Routine 10/27/2024 10:00 AM EDT US DUPLEX [id number] COMPLETE STAT 10/27/2024 9:51 AM EDT US [...] CKD (CMS-HCC) CT RENAL ALTRNSPLJ IMPLTJ GRF W/SEAT COVER MAKER NEPHRECTOMY 10/27/2024 2:32 AM EDT Acute kidney [...] - 100 mg/dL 11/02/2024 5:45 PM EDT [facility] Blood 11/02/2024 5:44 PM EDT 11/02/2024 5:45 PM EDT us Harvey Domínguez III, MD POINT OF CARE TEST ORDERABLES Final Result [facility] [address] * (ABNORMAL) POC Glucose Monitoring Device (11/02/2024 3:34 PM EDT) POC Glucose Monitoring Device 208(H) 70 - 100 mg/dL 11/02/2024 3:35 PM EDT [facility] Blood 11/02/2024 3:34 PM EDT 11/02/2024 3:35 PM EDT Harvey Domínguez III, MD POINT OF CARE TEST ORDERABLES Final Result [facility] [address] * (ABNORMAL) POC Glucose Monitoring Device (11/02/2024 1:18 PM EDT) POC Glucose Monitoring Device 225(H) 70 - 100 mg/dL 11/02/2024 1:19 PM EDT [facility] Blood 11/02/2024 1:18 PM EDT 11/02/2024 1:19 PM EDT Harvey Domínguez III, MD POINT OF CARE TEST ORDERABLES Final Result Performing Organization Address [facility] Co de Phone Number [facility] [address] [place] [address]. [address] * (ABNORMAL) POC Glucose Monitoring Device (11/02/2024 8:59 AM EDT) POC Glucose Monitoring Device 129(H) 70 - 100 mg/dL 11/02/2024 9:00 AM EDT [facility] Blood 11/02/2024 8:59 AM EDT 11/02/2024 9:00 AM EDT Harvey Domínguez III, MD POINT OF CARE TEST ORDERABLES Final Result Performing Organization Address City/[facility] Co de Phone Number [facility] [address] * Tacrolimus level (11/02/2024 5:53 AM EDT) Tacrolimus (LC-MS) 7.4 3.0 - 15.0 ng/mL 11/02/2024 2:23 PM EDT [facility] Comment:Performed via liquid chromatography tandem mass spectrometry. Detection limit: 1 ng/mL. Individual target concentrations may vary due to target organ and time after transplant. This test has been developed and its performance characteristics determined by [facility] which is certified under the [...] PharmD LAB BLOOD ORDERABLES Denisse valle Result [facility] [address] [place] [address], [facility] * (ABNORMAL) Renal Function Panel w/EGFR (11/02/2024 5:53 AM EDT) Sodium 140 133 - 146 mmol/L 11/02/2024 6:47 AM EDT [facility] Potassium 3.3(L) 3.5 - 5.3 mmol/L 11/02/2024 6:47 AM EDT [facility] Chloride 107 98 - 110 mmol/L 11/02/2024 6:47 AM EDT [facility] CO2 25 21 - 33 mmol/L 11/02/2024 6:47 AM EDT [facility] Anion Gap 8 3 - 16 mmol/L 11/02/2024 6:47 AM EDT [facility] BUN 31(H) 7 - 25 mg/dL 11/02/2024 6:47 AM EDT [facility] Creatinine 1.08 0.60 - 1.30 mg/dL 11/02/2024 6:47 AM EDT [facility] Glucose 150(H) 70 - 100 mg/dL 11/02/2024 6:47 AM EDT [facility] Calcium 7.8(L) 8.6 - 10.3 mg/dL 11/02/2024 6:47 AM EDT [facility] Phosphorus 2.0(L) 2.1 - 4.7 mg/dL 11/02/2024 6:47 AM EDT [facility] Albumin 3.2(L) 3.5 - 5.7 g/dL 11/02/2024 6:47 AM EDT [facility] Osmolality, Calculated 299 278 - 305 mOsm/kg 11/02/2024 6:47 AM EDT [facility] EGFR 88 11/02/2024 6:47 AM EDT [facility] Comment:As of 2021, the estimated GFR [...] 5:53 AM EDT 11/02/2024 6:12 AM EDT [employer] LAB BLOOD ORDERABLES Denisse l Result Performing Organization Address City/[facility]/ZIP Co de Phone Number [facility] [address] [place] [address] * (ABNORMAL) Magnesium (11/02/2024 5:53 AM EDT) Magnesium 1.3(L) 1.5 - 2.5 mg/dL 11/02/2024 6:47 AM EDT [facility] Plasma 11/02/2024 5:53 AM EDT 11/02/2024 6:12 AM EDT [employer] LAB BLOOD ORDERABLES Denisse l Result Performing Organization Address [facility]/ZIP Co de Phone Number [facility] [address] * (ABNORMAL) Hepatic Function Panel (11/02/2024 5:53 AM EDT) Total Bilirubin 1.6(H) 0.0 - 1.5 mg/dL 11/02/2024 6:47 AM EDT [facility] Bilirubin, Direct 0.81(H) 0.00 - 0.40 mg/dL 11/02/2024 6:47 AM EDT [facility] AST 30 13 - 39 U/L 11/02/2024 6:47 AM EDT [facility] ALT 66(H) 7 - 52 U/L 11/02/2024 6:47 AM EDT [facility] Alkaline Phosphatase 126(H) 36 - 125 U/L 11/02/2024 6:47 AM EDT [facility] Total Protein 4.6(L) 6.4 - 8.9 g/dL 11/02/2024 6:47 AM EDT [facility] Albumin 3.2(L) 3.5 - 5.7 g/dL 11/02/2024 6:47 AM EDT [facility] Bilirubin, Indirect 0.79 0.00 - 1.10 mg/dL 11/02/2024 6:47 AM EDT [facility] Plasma 11/02/2024 5:53 AM EDT 11/02/2024 6:12 AM EDT Beata Horner [facility] LAB BLOOD ORDERABLES Denisse valle Result Performing Organization Address City/State/[facility] Co de Phone Number [facility] [address] * (ABNORMAL) CBC (11/02/2024 5:53 AM EDT) WBC 5.8 3.8 - 10.8 10E3/uL 11/02/2024 6:21 AM EDT [facility] RBC 3.12(L) 4.20 - 5.80 10E6/uL 11/02/2024 6:21 AM EDT [facility] Hemoglobin 9.2(L) 13.2 - 17.1 g/dL 11/02/2024 6:21 AM EDT [facility] Hematocrit 27.5(L) 38.5 - 50.0 % 11/02/2024 6:21 AM EDT [facility] MCV 87.9 80.0 - 100.0 fL 11/02/2024 6:21 AM EDT [facility] MCH 29.5 27.0 - 33.0 pg 11/02/2024 6:21 AM EDT [facility] MCHC 33.5 32.0 - 36.0 g/dL 11/02/2024 6:21 AM EDT [facility] RDW 17.5(H) 11.0 - 15.0 % 11/02/2024 6:21 AM EDT [facility] Platelets 61(L) 140 - 400 10E3/uL 11/02/2024 6:21 AM EDT [facility] MPV 7.9 7.5 - 11.5 fL 11/02/2024 6:21 AM EDT [facility] Whole Blood 11/02/2024 5:53 AM EDT 11/02/2024 6:12 AM EDT us Beata Horner [facility] LAB BLOOD ORDERABLES Denisse l Result [facility] [address] * (ABNORMAL) POC Glucose Monitoring Device (11/01/2024 9:26 PM EDT) POC Glucose Monitoring Device 199(H) 70 - 100 mg/dL 11/01/2024 9:27 PM EDT [facility] Blood 11/01/2024 9:26 PM EDT 11/01/2024 9:27 PM EDT Harvey Domínguez III, MD POINT OF CARE TEST ORDERABLES Final Result [facility] [address] * (ABNORMAL) POC Glucose Monitoring Device (11/01/2024 5:04 PM EDT) POC Glucose Monitoring Device 255(H) 70 - 100 mg/dL 11/01/2024 5:05 PM EDT [facility] Blood 11/01/2024 5:04 PM EDT 11/01/2024 5:05 PM EDT Harvey Domínguez III, MD POINT OF CARE TEST ORDERABLES Final Result [facility] [address] [place] [address], [facility] * (ABNORMAL) Renal Function Panel w/EGFR, STAT (11/01/2024 2:17 PM EDT) Sodium 139 133 - 146 mmol/L 11/01/2024 3:10 PM EDT [facility] Potassium 3.3(L) 3.5 - 5.3 mmol/L 11/01/2024 3:10 PM EDT [facility] Chloride 107 98 - 110 mmol/L 11/01/2024 3:10 PM EDT [facility] CO2 24 21 - 33 mmol/L 11/01/2024 3:10 PM EDT [facility] Anion Gap 8 3 - 16 mmol/L 11/01/2024 3:10 PM EDT [facility] BUN 35(H) 7 - 25 mg/dL 11/01/2024 3:10 PM EDT [facility] Creatinine 1.22 0.60 - 1.30 mg/dL 11/01/2024 3:10 PM EDT [facility] Glucose 203(H) 70 - 100 mg/dL 11/01/2024 3:10 PM EDT [facility] Calcium 8.3(L) 8.6 - 10.3 mg/dL 11/01/2024 3:10 PM EDT [facility] Phosphorus 2.2 2.1 - 4.7 mg/dL 11/01/2024 3:10 PM EDT [facility] Albumin 3.4(L) 3.5 - 5.7 g/dL 11/01/2024 3:10 PM EDT [facility] Osmolality, Calculated 302 278 - 305 mOsm/kg 11/01/2024 3:10 PM EDT [facility] EGFR 76 11/01/2024 3:10 PM EDT [facility] Comment:As of 2021, the estimated GFR [...] BLOOD ORDERABLES Final Result Performing Organization Address City/State/[facility] Co de Phone Number [facility] [address] [place] [address], [facility] * X-ray Portable Abdomen AP view (11/01/2024 [...] visualized. Moderate colonic stool burden. Procedure Note Mormon, Shakib, MD - 11/01/2024 EXAM: XR PORTABLE [...] - 100 mg/dL 11/01/2024 12:23 PM EDT [facility] Blood 11/01/2024 12:2 2 PM EDT 11/01/2024 12:23 PM EDT Harvey Domínguez III, MD POINT OF CARE TEST ORDERABLES Final Result Performing Organization Address City/State/[facility] Co de Phone Number [facility] [address] [place], [place] [address] * (ABNORMAL) POC Glucose Monitoring Device (11/01/2024 8:50 AM EDT) POC Glucose Monitoring Device 175(H) 70 - 100 mg/dL 11/01/2024 8:51 AM EDT [facility] Blood 11/01/2024 8:50 AM EDT 11/01/2024 8:51 AM EDT Harvey Domínguez III, MD POINT OF CARE TEST ORDERABLES Final Result [facility] [address] [facility]. [address] * Tacrolimus level (11/01/2024 6:01 AM EDT) Pathologist [facility] Tacrolimus (LC-MS) 7.5 3.0 - 15.0 ng/mL 11/01/2024 12:14 PM EDT [facility] Comment:Performed via liquid chromatography tandem mass spectrometry. Detection limit: 1 ng/mL. Individual target concentrations may vary due to target organ and time after transplant. This test has been developed and its performance characteristics determined by [facility] which is certified under the [...] ORDERABLES Denisse l Result Performing Organization Address [facility] Co de Phone Number [facility] [address] [facility]. [address] * (ABNORMAL) Renal Function Panel w/EGFR (11/01/2024 6:01 AM EDT) Pathologist [facility] Sodium 139 133 - 146 mmol/L 11/01/2024 6:57 AM EDT [facility] Potassium 3.3(L) 3.5 - 5.3 mmol/L 11/01/2024 6:57 AM EDT [facility] Chloride 108 98 - 110 mmol/L 11/01/2024 6:57 AM EDT [facility] CO2 22 21 - 33 mmol/L 11/01/2024 6:57 AM EDT [facility] Anion Gap 9 3 - 16 mmol/L 11/01/2024 6:57 AM EDT [facility] BUN 37(H) 7 - 25 mg/dL 11/01/2024 6:57 AM EDT [facility] Creatinine 1.30 0.60 - 1.30 mg/dL 11/01/2024 6:57 AM EDT [facility] Glucose 163(H) 70 - 100 mg/dL 11/01/2024 6:57 AM EDT [facility] Calcium 8.2(L) 8.6 - 10.3 mg/dL 11/01/2024 6:57 AM EDT [facility] Phosphorus 2.9 2.1 - 4.7 mg/dL 11/01/2024 6:57 AM EDT [facility] Albumin 3.1(L) 3.5 - 5.7 g/dL 11/01/2024 6:57 AM EDT [facility] Osmolality, Calculated 300 278 - 305 mOsm/kg 11/01/2024 6:57 AM EDT [facility] EGFR 71 11/01/2024 6:57 AM EDT [facility] Comment:As of 2021, the estimated GFR [...] 11/01/2024 6:20 AM EDT us Beata Horner [employer] LAB BLOOD ORDERABLES Denisse valle Result [facility] [address] [place] [address], [facility] * Magnesium (11/01/2024 6:01 AM EDT) Magnesium 1.5 1.5 - 2.5 mg/dL 11/01/2024 6:57 AM EDT [facility] Plasma 11/01/2024 6:01 AM EDT 11/01/2024 6:20 AM EDT Beata Horner [employer] LAB BLOOD ORDERABLES Denisse l Result Performing Organization Address [facility] Co de Phone Number [facility] [address] * (ABNORMAL) Hepatic Function Panel (11/01/2024 6:01 AM EDT) Total Bilirubin 2.0(H) 0.0 - 1.5 mg/dL 11/01/2024 6:57 AM EDT [facility] Bilirubin, Direct 1.06(H) 0.00 - 0.40 mg/dL 11/01/2024 6:57 AM EDT [facility] AST 21 13 - 39 U/L 11/01/2024 6:57 AM EDT [facility] ALT 62(H) 7 - 52 U/L 11/01/2024 6:57 AM EDT [facility] Alkaline Phosphatase 114 36 - 125 U/L 11/01/2024 6:57 AM EDT [facility] Total Protein 4.6(L) 6.4 - 8.9 g/dL 11/01/2024 6:57 AM EDT [facility] Albumin 3.1(L) 3.5 - 5.7 g/dL 11/01/2024 6:57 AM EDT [facility] Bilirubin, Indirect 0.94 0.00 - 1.10 mg/dL 11/01/2024 6:57 AM EDT [facility] Plasma 11/01/2024 6:01 AM EDT 11/01/2024 6:20 AM EDT Beata Horner [employer] LAB BLOOD ORDERABLES Denisse l Result [facility] [address] [facility]. [address] * (ABNORMAL) CBC (11/01/2024 6:01 AM EDT) WBC 5.9 3.8 - 10.8 10E3/uL 11/01/2024 6:29 AM EDT [facility] RBC 3.19(L) 4.20 - 5.80 10E6/uL 11/01/2024 6:29 AM EDT [facility] Hemoglobin 9.5(L) 13.2 - 17.1 g/dL 11/01/2024 6:29 AM EDT [facility] Hematocrit 27.8(L) 38.5 - 50.0 % 11/01/2024 6:29 AM EDT [facility] MCV 87.1 80.0 - 100.0 fL 11/01/2024 6:29 AM EDT [facility] MCH 29.9 27.0 - 33.0 pg 11/01/2024 6:29 AM EDT [facility] MCHC 34.3 32.0 - 36.0 g/dL 11/01/2024 6:29 AM EDT [facility] RDW 17.4(H) 11.0 - 15.0 % 11/01/2024 6:29 AM EDT [facility] Platelets 56(L) 140 - 400 10E3/uL 11/01/2024 6:29 AM EDT [facility] MPV 8.3 7.5 - 11.5 fL 11/01/2024 6:29 AM EDT [facility] Whole Blood 11/01/2024 6:01 AM EDT 11/01/2024 6:19 AM EDT us Beata Horner [employer] LAB BLOOD ORDERABLES Denisse l Result [facility] [address] [place] [address], [facility] * (ABNORMAL) POC Glucose Monitoring Device (10/31/2024 9:15 PM EDT) POC Glucose Monitoring Device 171(H) 70 - 100 mg/dL 10/31/2024 9:15 PM EDT [facility] Blood 10/31/2024 9:15 PM EDT 10/31/2024 9:15 PM EDT Harvey Domínguez III, MD POINT OF CARE TEST ORDERABLES Final Result [facility] [address] * (ABNORMAL) POC Glucose Monitoring Device (10/31/2024 5:56 PM EDT) POC Glucose Monitoring Device 179(H) 70 - 100 mg/dL 10/31/2024 5:57 PM EDT [facility] Blood 10/31/2024 5:56 PM EDT 10/31/2024 5:57 PM EDT Harvey Domínguez III, MD POINT OF CARE TEST ORDERABLES Final Result Performing Organization Address City/[facility] Co de Phone Number [facility] [address] * CT Abdomen and Pelvis WO [...] Adrenal gland: No focal nodule seen. Kidneys: Stebbins kidneys noted with nonobstructing calcifications on the right. Findings of postsurgical changes in the left jamul kidney. Mild right hydronephrosis without an obstructive [...] Adrenal gland: No focal nodule seen. Kidneys: Stebbins kidneys noted with nonobstructing calcifications on theright. Findings of postsurgical changes in the left jamul kidney. Mildright hydronephrosis without an obstructive course [...] QT: 400 ms QTc: 456 ms P [place]: 49 degrees R [place]: 3 degrees T [place]: 14 degrees Diagnosis Line: NORMAL SINUS RHYTHM ^ NORMAL ECG ^ ^ Confirmed by MD REID JAMES ([id number]) on 11/02/2024 6:56:52 AM Priti Geiger CNP ECG ORDERABLES Final Result [facility] * (ABNORMAL) Urinalysis w/Rfl to Microscopic (10/31/2024 1:18 PM EDT) Color, UA Straw Yellow,Straw 10/31/2024 1:46 PM EDT [facility] Clarity, UA Clear Clear 10/31/2024 1:46 PM EDT [facility] Specific [place], UA 1.013 1.005 - 1.035 10/31/2024 1:46 PM EDT [facility] pH, UA 6.5 5.0 - 8.0 10/31/2024 1:46 PM EDT [facility] Protein, UA Negative Negative mg/dL 10/31/2024 1:46 PM EDT [facility] Glucose, UA Negative Negative mg/dL 10/31/2024 1:46 PM EDT [facility] Ketones, UA Negative Negative mg/dL 10/31/2024 1:46 PM EDT [facility] Bilirubin, UA Negative Negative 10/31/2024 1:46 PM EDT [facility] Blood, UA Large(A) Negative 10/31/2024 1:46 PM EDT [facility] Nitrite, UA Negative Negative 10/31/2024 1:46 PM EDT [facility] Urobilinogen, UA <2.0 0.2 - 1.9 mg/dL 10/31/2024 1:46 PM EDT [facility] Leukocyte Esterase, UA Negative Negative 10/31/2024 1:46 PM EDT [facility] RBC, UA >100(H) 0 - 3 /HPF 10/31/2024 1:46 PM EDT [facility] WBC, UA 3 0 - 5 /HPF 10/31/2024 1:46 PM EDT [facility] Hyaline Casts, UA 3(H) 0 - 2 /LPF 10/31/2024 1:46 PM EDT [facility] Urine 10/31/2024 1:18 PM EDT 10/31/2024 1:32 PM EDT Priti Geiger [facility] URINE ORDERABLES Final Result Performing Organization Address City/State/[facility] Co de Phone Number [facility] [address] * (ABNORMAL) Post Kidney Transplant Urine Culture (10/31/2024 1:18 PM EDT) Culture Result Enterococcus faecium, Vancomycin Resistant(A) [facility] Comment: 1,000- <10,000 cfu/mL Identified by [...] SARMAD >=32: Resistant Comment:See Results Priti Geiger [employer] MICROBIOLOGY - GENERAL ORDERA BLES Final Result Performing Organization Address [facility] Co de Phone Number [facility] [address] * (ABNORMAL) POC Glucose Monitoring Device (10/31/2024 11:59 AM EDT) [facility] POC Glucose Monitoring Device 130(H) 70 - 100 mg/dL 10/31/2024 12:21 PM EDT [facility] Blood 10/31/2024 11:5 9 AM EDT 10/31/2024 12:21 PM EDT Harvey Domínguez III, MD POINT OF CARE TEST ORDERABLES Final Result Performing Organization Address [facility] Co de Phone Number [facility] [address] [facility]. [address] * US Abdomen Limited (10/31/2024 10:19 [...] EXAM: US ABDOMEN LIMITED EXAM: US DUPLEX [id number] COMPLETE INDICATION: Post-op liver transplant COMPARISON: None [...] visualized secondary to poor acoustic windows. The jamul right kidney measures 11.6 cm in length. [...] EXAM: US ABDOMEN LIMITED EXAM: US DUPLEX [id number] COMPLETE INDICATION: Post-op liver transplant COMPARISON: None [...] well visualized secondary to poor acousticwindows. The jamul right kidney measures 11.6 cm in length. [...] 10/31/2024 10:35 AM EDT us Beata Horner [employer] IMG US ORDERABLES Final R esult * [...] 10/31/2024 10:29 AM EDT us Beata Horner [facility] IMG US ORDERABLES Final R esult * US Duplex Dnw-[id number]-[id number] Comp (10/31/2024 10:19 AM EDT) Anatomical Region [...] EXAM: US ABDOMEN LIMITED EXAM: US DUPLEX [id number] COMPLETE INDICATION: Post-op liver transplant COMPARISON: None [...] visualized secondary to poor acoustic windows. The jamul right kidney measures 11.6 cm in length. [...] EXAM: US ABDOMEN LIMITED EXAM: US DUPLEX [id number] COMPLETE INDICATION: Post-op liver transplant COMPARISON: None [...] well visualized secondary to poor acousticwindows. The jamul right kidney measures 11.6 cm in length. [...] at 10/31/2024 10:35 AM EDT Beata Horner [employer] IMG US ORDERABLES Final R esult * ECG 12-lead (MUSE) (10/31/2024 8:57 AM EDT) 10/31/2024 8:57 AM EDT Narrative MUSE - 11/01/2024 9:21 AM EDT Ventricular Rate: 83 BPM Atrial Rate: 83 BPM P-R Interval: 168 ms QRS Duration: 102 ms QT: 392 ms QTc: 460 ms P [place]: 64 degrees R [place]: -18 degrees T [place]: 7 degrees Diagnosis Line: NORMAL SINUS RHYTHM ^ NORMAL ECG ^ ^ Confirmed by MD JOE, ANISIIA ([id number]) on 11/01/2024 9:21:13 AM Priti Geiger [facility] ECG ORDERABLES Final Result MUSE * (ABNORMAL) POC Glucose Monitoring Device (10/31/2024 8:44 AM EDT) [facility] POC Glucose Monitoring Device 145(H) 70 - 100 mg/dL 10/31/2024 8:45 AM EDT [facility] Blood 10/31/2024 8:44 AM EDT 10/31/2024 8:44 AM EDT Harvey Domínguez III, MD POINT OF CARE TEST ORDERABLES Final Result [facility] [address] [place] [address], [facility] * Tacrolimus level (10/31/2024 6:40 AM EDT) Pathologist [facility] Tacrolimus (LC-MS) 8.4 3.0 - 15.0 ng/mL 10/31/2024 10:05 AM EDT [facility] Comment:Performed via liquid chromatography tandem mass spectrometry. Detection limit: 1 ng/mL. Individual target concentrations may vary due to target organ and time after transplant. This test has been developed and its performance characteristics determined by [facility] which is certified under the [...] PharmD LAB BLOOD ORDERABLES Denisse valle Result [facility] [address] * (ABNORMAL) Renal Function Panel w/EGFR (10/31/2024 6:40 AM EDT) [facility] Sodium 141 133 - 146 mmol/L 10/31/2024 8:09 AM EDT [facility] Potassium 3.5 3.5 - 5.3 mmol/L 10/31/2024 8:09 AM EDT [facility] Chloride 111(H) 98 - 110 mmol/L 10/31/2024 8:09 AM EDT [facility] CO2 20(L) 21 - 33 mmol/L 10/31/2024 8:09 AM EDT [facility] Anion Gap 10 3 - 16 mmol/L 10/31/2024 8:09 AM EDT [facility] BUN 54(H) 7 - 25 mg/dL 10/31/2024 8:09 AM EDT [facility] Creatinine 1.75(H) 0.60 - 1.30 mg/dL 10/31/2024 8:09 AM EDT [facility] Glucose 136(H) 70 - 100 mg/dL 10/31/2024 8:09 AM EDT [facility] Calcium 8.7 8.6 - 10.3 mg/dL 10/31/2024 8:09 AM EDT [facility] Phosphorus 4.1 2.1 - 4.7 mg/dL 10/31/2024 8:09 AM EDT [facility] Albumin 3.2(L) 3.5 - 5.7 g/dL 10/31/2024 8:09 AM EDT [facility] Osmolality, Calculated 309(H) 278 - 305 mOsm/kg 10/31/2024 8:09 AM EDT [facility] EGFR 50 10/31/2024 8:09 AM EDT [facility] Comment:As of 2021, the estimated GFR [...] EDT 10/31/2024 7:35 AM EDT Beata Horner [facility] LAB BLOOD ORDERABLES Denisse l Result [facility] [address] [place] [address], [facility] * Magnesium (10/31/2024 6:40 AM EDT) Magnesium 1.8 1.5 - 2.5 mg/dL 10/31/2024 8:09 AM EDT [facility] Plasma 10/31/2024 6:40 AM EDT 10/31/2024 7:35 AM EDT Beata Horner [employer] LAB BLOOD ORDERABLES Denisse l Result Performing Organization Address City/[facility]/ZIP Co de Phone Number [facility] [address] * (ABNORMAL) Hepatic Function Panel (10/31/2024 6:40 AM EDT) Total Bilirubin 2.7(H) 0.0 - 1.5 mg/dL 10/31/2024 8:09 AM EDT [facility] Bilirubin, Direct 1.57(H) 0.00 - 0.40 mg/dL 10/31/2024 8:09 AM EDT [facility] AST 26 13 - 39 U/L 10/31/2024 8:09 AM EDT [facility] ALT 68(H) 7 - 52 U/L 10/31/2024 8:09 AM EDT [facility] Alkaline Phosphatase 112 36 - 125 U/L 10/31/2024 8:09 AM EDT [facility] Total Protein 4.7(L) 6.4 - 8.9 g/dL 10/31/2024 8:09 AM EDT [facility] Albumin 3.2(L) 3.5 - 5.7 g/dL 10/31/2024 8:09 AM EDT [facility] Bilirubin, Indirect 1.13(H) 0.00 - 1.10 mg/dL 10/31/2024 8:09 AM EDT [facility] Plasma 10/31/2024 6:40 AM EDT 10/31/2024 7:35 AM EDT Beata Horner [employer] LAB BLOOD ORDERABLES Denisse l Result [facility] [address] [facility]. [address] * (ABNORMAL) CBC (10/31/2024 6:40 AM EDT) WBC 6.0 3.8 - 10.8 10E3/uL 10/31/2024 8:05 AM EDT [facility] RBC 3.14(L) 4.20 - 5.80 10E6/uL 10/31/2024 8:05 AM EDT [facility] Hemoglobin 9.6(L) 13.2 - 17.1 g/dL 10/31/2024 8:05 AM EDT [facility] Hematocrit 27.5(L) 38.5 - 50.0 % 10/31/2024 8:05 AM EDT [facility] MCV 87.6 80.0 - 100.0 fL 10/31/2024 8:05 AM EDT [facility] MCH 30.7 27.0 - 33.0 pg 10/31/2024 8:05 AM EDT [facility] MCHC 35.0 32.0 - 36.0 g/dL 10/31/2024 8:05 AM EDT [facility] RDW 17.9(H) 11.0 - 15.0 % 10/31/2024 8:05 AM EDT [facility] Platelets 44(L) 140 - 400 10E3/uL 10/31/2024 8:05 AM EDT [facility] Comment: CNV Specimen checked for clots. None detected. MPV 8.9 7.5 - 11.5 fL 10/31/2024 8:05 AM EDT [facility] Whole Blood 10/31/2024 6:40 AM EDT 10/31/2024 7:34 AM EDT us Beata Horner [facility] BLOOD ORDERABLES Denisse l Result Performing Organization Address City/State/[facility] Co de Phone Number [facility] [address] * (ABNORMAL) POC Glucose Monitoring Device (10/30/2024 9:01 PM EDT) POC Glucose Monitoring Device 144(H) 70 - 100 mg/dL 10/30/2024 9:02 PM EDT [facility] Blood 10/30/2024 9:01 PM EDT 10/30/2024 9:01 PM EDT us Harvey Domínguez III, MD POINT OF CARE TEST ORDERABLES Final Result [facility] [address] * (ABNORMAL) POC Glucose Monitoring Device (10/30/2024 5:37 PM EDT) POC Glucose Monitoring Device 124(H) 70 - 100 mg/dL 10/30/2024 5:47 PM EDT [facility] Blood 10/30/2024 5:37 PM EDT 10/30/2024 5:47 PM EDT us Harvey Domínguez III, MD POINT OF CARE TEST ORDERABLES Final Result Performing Organization Address City/[facility] Co de Phone Number [facility] [address] [facility]. [address] * (ABNORMAL) POC Glucose Monitoring Device (10/30/2024 7:26 AM EDT) POC Glucose Monitoring Device 150(H) 70 - 100 mg/dL 10/30/2024 7:27 AM EDT [facility] Blood 10/30/2024 7:26 AM EDT 10/30/2024 7:27 AM EDT us Harvey Domínguez III, MD POINT OF CARE TEST ORDERABLES Final Result Performing Organization Address City/[facility]/ZIP Co de Phone Number [facility] [address] [place] [facility]. [address] * Tacrolimus level (10/30/2024 7:13 AM EDT) Tacrolimus (LC-MS) 9.5 3.0 - 15.0 ng/mL 10/30/2024 2:53 PM EDT [facility] Comment:Performed via liquid chromatography tandem mass spectrometry. Detection limit: 1 ng/mL. Individual target concentrations may vary due to target organ and time after transplant. This test has been developed and its performance characteristics determined by [facility] which is certified under the [...] 7:13 AM EDT 10/30/2024 7:26 AM EDT [employer] [facility] BLOOD ORDERABLES Final Re sult Performing Organization Address City/[facility] Co de Phone Number [facility] [address] * ECG 12-lead (MUSE) (10/30/2024 6:51 AM EDT) 10/30/2024 6:51 AM EDT Narrative MUSE - 11/01/2024 9:21 AM EDT Ventricular Rate: 92 BPM Atrial Rate: 92 BPM P-R Interval: 174 ms QRS Duration: 96 ms QT: 376 ms QTc: 464 ms P [place]: 54 degrees R [place]: -24 degrees T [place]: 11 degrees Diagnosis Line: NORMAL SINUS RHYTHM ^ NORMAL ECG ^ ^ Confirmed by MD JOE, OTIS ([id number]) on 11/01/2024 9:21:09 AM [employer] [facility] ECG ORDERABLES Final Result Performing Organization Address City/[facility] Co de Phone Number MUSE * (ABNORMAL) Renal Function Panel w/EGFR (10/30/2024 5:41 AM EDT) Sodium 140 133 - 146 mmol/L 10/30/2024 6:18 AM EDT [facility] Potassium 3.8 3.5 - 5.3 mmol/L 10/30/2024 6:18 AM EDT [facility] Chloride 111(H) 98 - 110 mmol/L 10/30/2024 6:18 AM EDT [facility] CO2 17(L) 21 - 33 mmol/L 10/30/2024 6:18 AM EDT [facility] Anion Gap 12 3 - 16 mmol/L 10/30/2024 6:18 AM EDT [facility] BUN 62(H) 7 - 25 mg/dL 10/30/2024 6:18 AM EDT [facility] Creatinine 1.96(H) 0.60 - 1.30 mg/dL 10/30/2024 6:18 AM EDT [facility] Glucose 116(H) 70 - 100 mg/dL 10/30/2024 6:18 AM EDT [facility] Calcium 9.0 8.6 - 10.3 mg/dL 10/30/2024 6:18 AM EDT [facility] Phosphorus 4.6 2.1 - 4.7 mg/dL 10/30/2024 6:18 AM EDT [facility] Albumin 3.2(L) 3.5 - 5.7 g/dL 10/30/2024 6:18 AM EDT [facility] Osmolality, Calculated 309(H) 278 - 305 mOsm/kg 10/30/2024 6:18 AM EDT [facility] EGFR 43 10/30/2024 6:18 AM EDT [facility] Comment:As of 2021, the estimated GFR [...] EDT 10/30/2024 5:47 AM EDT Beata Horner [facility] BLOOD ORDERABLES Denisse valle Result [facility] [address] * Magnesium (10/30/2024 5:41 AM EDT) Magnesium 2.2 1.5 - 2.5 mg/dL 10/30/2024 6:18 AM EDT [facility] Plasma 10/30/2024 5:41 AM EDT 10/30/2024 5:47 AM EDT Beata Horner [facility] BLOOD ORDERABLES Denisse l Result Performing Organization Address City/[facility]/ZIP Co de Phone Number [facility] [address] [facility]. [address] * (ABNORMAL) Hepatic Function Panel (10/30/2024 5:41 AM EDT) Total Bilirubin 3.6(H) 0.0 - 1.5 mg/dL 10/30/2024 6:18 AM EDT [facility] Bilirubin, Direct 1.95(H) 0.00 - 0.40 mg/dL 10/30/2024 6:18 AM EDT [facility] AST 33 13 - 39 U/L 10/30/2024 6:18 AM EDT [facility] ALT 71(H) 7 - 52 U/L 10/30/2024 6:18 AM EDT [facility] Alkaline Phosphatase 80 36 - 125 U/L 10/30/2024 6:18 AM EDT [facility] Total Protein 4.8(L) 6.4 - 8.9 g/dL 10/30/2024 6:18 AM EDT [facility] Albumin 3.2(L) 3.5 - 5.7 g/dL 10/30/2024 6:18 AM EDT [facility] Bilirubin, Indirect 1.65(H) 0.00 - 1.10 mg/dL 10/30/2024 6:18 AM EDT [facility] Plasma 10/30/2024 5:41 AM EDT 10/30/2024 5:47 AM EDT Beata Horner [facility] BLOOD ORDERABLES Denisse l Result [facility] [address] [facility]. [address] * (ABNORMAL) CBC (10/30/2024 5:41 AM EDT) Pathologist [facility] WBC 8.1 3.8 - 10.8 10E3/uL 10/30/2024 8:06 AM EDT [facility] RBC 3.29(L) 4.20 - 5.80 10E6/uL 10/30/2024 8:06 AM EDT [facility] Hemoglobin 10.1(L) 13.2 - 17.1 g/dL 10/30/2024 8:06 AM EDT [facility] Hematocrit 28.8(L) 38.5 - 50.0 % 10/30/2024 8:06 AM EDT [facility] MCV 87.6 80.0 - 100.0 fL 10/30/2024 8:06 AM EDT [facility] MCH 30.6 27.0 - 33.0 pg 10/30/2024 8:06 AM EDT [facility] MCHC 34.9 32.0 - 36.0 g/dL 10/30/2024 8:06 AM EDT [facility] RDW 18.1(H) 11.0 - 15.0 % 10/30/2024 8:06 AM EDT [facility] Platelets 44(L) 140 - 400 10E3/uL 10/30/2024 8:06 AM EDT [facility] Comment: CNV Specimen checked for clots. None detected. MPV 8.3 7.5 - 11.5 fL 10/30/2024 8:06 AM EDT [facility] Whole Blood 10/30/2024 5:41 AM EDT 10/30/2024 5:50 AM EDT us Beata Horner [employer] LAB BLOOD ORDERABLES Denisse valle Result [facility] [address] [facility]. [address] * (ABNORMAL) POC Glucose Monitoring Device (10/29/2024 10:18 PM EDT) [facility] POC Glucose Monitoring Device 140(H) 70 - 100 mg/dL 10/29/2024 10:18 PM EDT [facility] Blood 10/29/2024 10:1 8 PM EDT 10/29/2024 10:18 PM EDT us Harvey Domínguez III, MD POINT OF CARE TEST ORDERABLES Final Result [facility] [address] * (ABNORMAL) POC Glucose Monitoring Device (10/29/2024 6:42 PM EDT) POC Glucose Monitoring Device 152(H) 70 - 100 mg/dL 10/29/2024 6:43 PM EDT [facility] Blood 10/29/2024 6:42 PM EDT 10/29/2024 6:43 PM EDT us Harvey Domínguez III, MD POINT OF CARE TEST ORDERABLES Final Result Performing Organization Address [facility] Co de Phone Number [facility] [address] [place], [place] [id number] [facility]. [address] * (ABNORMAL) POC Glucose Monitoring Device (10/29/2024 11:35 AM EDT) POC Glucose Monitoring Device 130(H) 70 - 100 mg/dL 10/29/2024 11:36 AM EDT [facility] Blood 10/29/2024 11:3 5 AM EDT 10/29/2024 11:36 AM EDT us Harvey Domínguez III, MD POINT OF CARE TEST ORDERABLES Final Result Performing Organization Address City/[facility] Co de Phone Number [facility] [address] [facility]. [address] * ECG 12 lead (MUSE) (10/29/2024 9:34 AM EDT) 10/29/2024 9:34 AM EDT Narrative MUSE - 10/29/2024 10:34 PM EDT Ventricular Rate: 97 BPM Atrial Rate: 97 BPM P-R Interval: 186 ms QRS Duration: 104 ms QT: 382 ms QTc: 485 ms P [place]: 54 degrees R [place]: -21 degrees T [place]: 1 degrees Diagnosis Line: NORMAL SINUS RHYTHM ^ NORMAL ECG ^ Confirmed by JORGE MACIAS ([id number]) on 10/29/2024 10:34:50 PM Afshan Bear MD ECG ORDERABLES Final Result Performing Organization Address [facility] de Phone Number MUSE * Tacrolimus level (10/29/2024 8:08 AM EDT) Pathologist [facility] Tacrolimus (LC-MS) 10.4 3.0 - 15.0 ng/mL 10/29/2024 2:07 PM EDT [facility] Comment:Performed via liquid chromatography tandem mass spectrometry. Detection limit: 1 ng/mL. Individual target concentrations may vary due to target organ and time after transplant. This test has been developed and its performance characteristics determined by [facility] which is certified under the [...] EDT 10/29/2024 8:21 AM EDT Priti Geiger [employer] LAB BLOOD ORDERABLES Final Re sult Performing Organization Address [facility] Co de Phone Number [facility] [address] [place] [address], [facility] * Prepare RBC, leukoreduced, 1 Units (10/29/2024 6:16 AM EDT) Product Code R8756X85 [facility] Unit Number [id number] [facility] Dispense Status Presumed Transfused_PT [facility] Blood Expiration Date [id number] [facility] Coding System [id number] [facility] Blood Bank Product Shay Plata MD BLOOD BANK PRODUCT O RDERABLES Final Result [facility] * Prepare RBC, leukoreduced, 1 Units (10/29/2024 6:15 AM EDT) Product Code T9531R89 [facility] Unit Number [id number] [facility] Dispense Status Presumed Transfused_PT [facility] Blood Expiration Date [id number] [facility] Coding System [id number] [facility] Blood Bank Product Carlos Marks MD BLOOD BANK PRODUCT ORDERABL ES Final Result Performing Organization Address [facility] de Phone Number [facility] * Prepare RBC, leukoreduced, 1 Units (10/29/2024 6:15 AM EDT) Product Code S1850R87 [facility] Unit Number [id number] [facility] Dispense Status Presumed Transfused_PT [facility] Blood Expiration Date [id number] HC[facility] Coding System [id number] [facility] Blood Bank Product John Moreno MD BLOOD BANK PRODUCT ORDERABLE S Final Result Performing Organization Address [facility] de Phone Number [facility] * (ABNORMAL) Renal Function Panel w/EGFR (10/29/2024 5:07 AM EDT) Sodium 144 133 - 146 mmol/L 10/29/2024 5:49 AM EDT [facility] Potassium 3.8 3.5 - 5.3 mmol/L 10/29/2024 5:49 AM EDT [facility] Chloride 113(H) 98 - 110 mmol/L 10/29/2024 5:49 AM EDT [facility] CO2 17(L) 21 - 33 mmol/L 10/29/2024 5:49 AM EDT [facility] Anion Gap 14 3 - 16 mmol/L 10/29/2024 5:49 AM EDT [facility] BUN 57(H) 7 - 25 mg/dL 10/29/2024 5:49 AM EDT [facility] Creatinine 1.93(H) 0.60 - 1.30 mg/dL 10/29/2024 5:49 AM EDT [facility] Glucose 110(H) 70 - 100 mg/dL 10/29/2024 5:49 AM EDT [facility] Calcium 9.3 8.6 - 10.3 mg/dL 10/29/2024 5:49 AM EDT [facility] Phosphorus 4.8(H) 2.1 - 4.7 mg/dL 10/29/2024 5:49 AM EDT [facility] Albumin 3.5 3.5 - 5.7 g/dL 10/29/2024 5:49 AM EDT [facility] Osmolality, Calculated 314(H) 278 - 305 mOsm/kg 10/29/2024 5:49 AM EDT [facility] EGFR 44 10/29/2024 5:49 AM EDT [facility] Comment:As of 2021, the estimated GFR [...] EDT 10/29/2024 5:13 AM EDT Beata Horner [employer] LAB BLOOD ORDERABLES Denisse valle Result [facility] [address] [place] * Magnesium (10/29/2024 5:07 AM EDT) Magnesium 2.1 1.5 - 2.5 mg/dL 10/29/2024 5:49 AM EDT [facility] Plasma 10/29/2024 5:07 AM EDT 10/29/2024 5:13 AM EDT Beata Horner [facility] BLOOD ORDERABLES Denisse l Result Performing Organization Address City/[facility]/ZIP Co de Phone Number [facility] [address] [facility]. [address] * (ABNORMAL) Hepatic Function Panel (10/29/2024 5:07 AM EDT) Total Bilirubin 4.2(H) 0.0 - 1.5 mg/dL 10/29/2024 5:49 AM EDT [facility] Bilirubin, Direct 2.85(H) 0.00 - 0.40 mg/dL 10/29/2024 5:49 AM EDT [facility] AST 31 13 - 39 U/L 10/29/2024 5:49 AM EDT [facility] ALT 88(H) 7 - 52 U/L 10/29/2024 5:49 AM EDT [facility] Alkaline Phosphatase 51 36 - 125 U/L 10/29/2024 5:49 AM EDT [facility] Total Protein 5.2(L) 6.4 - 8.9 g/dL 10/29/2024 5:49 AM EDT [facility] Albumin 3.5 3.5 - 5.7 g/dL 10/29/2024 5:49 AM EDT [facility] Bilirubin, Indirect 1.35(H) 0.00 - 1.10 mg/dL 10/29/2024 5:49 AM EDT [facility] Plasma 10/29/2024 5:07 AM EDT 10/29/2024 5:13 AM EDT Beata Horner [employer] LAB BLOOD ORDERABLES Denisse l Result [facility] [address] [place] * (ABNORMAL) CBC (10/29/2024 5:07 AM EDT) WBC 7.8 3.8 - 10.8 10E3/uL 10/29/2024 5:38 AM EDT [facility] RBC 3.05(L) 4.20 - 5.80 10E6/uL 10/29/2024 5:38 AM EDT [facility] Hemoglobin 9.0(L) 13.2 - 17.1 g/dL 10/29/2024 5:38 AM EDT [facility] Hematocrit 26.7(L) 38.5 - 50.0 % 10/29/2024 5:38 AM EDT [facility] MCV 87.4 80.0 - 100.0 fL 10/29/2024 5:38 AM EDT [facility] MCH 29.7 27.0 - 33.0 pg 10/29/2024 5:38 AM EDT [facility] MCHC 33.9 32.0 - 36.0 g/dL 10/29/2024 5:38 AM EDT [facility] RDW 18.3(H) 11.0 - 15.0 % 10/29/2024 5:38 AM EDT [facility] Platelets 41(L) 140 - 400 10E3/uL 10/29/2024 5:38 AM EDT [facility] Comment: CNV Specimen checked for clots. None detected. MPV 7.5 7.5 - 11.5 fL 10/29/2024 5:38 AM EDT [facility] Whole Blood 10/29/2024 5:07 AM EDT 10/29/2024 5:13 AM EDT us Beata Horner [employer] LAB BLOOD ORDERABLES Denisse tori Result [facility] [address] * (ABNORMAL) TEG-Bypass/ECMO/Liver HN (Factor function, Platelet/Fibrin Clot Strength w/Clot Breakdown, Heparinase In All Channels) (10/29/2024 5:07 AM EDT) Citrated Kaolin Reaction Time (TEGECMOLIVER) 8.9 4.6 - 9.1 minutes 10/29/2024 7:04 AM EDT [facility] Citrated Kaolin W/Heparinase Reaction Time (TEGECMOLIVER) 7.4 4.3 - 8.3 minutes 10/29/2024 7:04 AM EDT [facility] Citrated Kaolin Maximum Amplitude (TEGECMOLIVER) 52.9 52.0 - 69.0 mm 10/29/2024 7:04 AM EDT [facility] Citrated Functional Fibrinogen W/Heparinase Maximum Amplitude(TEGEC MOLIVER) 20.7 15.0 - 34.0 mm 10/29/2024 7:04 AM EDT [facility] Citrated Rapid Teg W/Heparinase Maximum Amplitude (TEGECMOLIVER) 49.7(L) 53.0 - 69.0 mm 10/29/2024 7:04 AM EDT [facility] Citrated Kaolin w/Heparinase Percent Lysis (TEGECMOLIVER) 0.0 0.0 - 3.2 % 10/29/2024 7:04 AM EDT [facility] Whole Blood (Citrate) 10/29/2024 5:07 AM EDT 10/29/2024 5:10 AM EDT us Kemar Sahni MD LAB BLOOD ORDERABLES Final Result [facility] [address] [place] [id number] * (ABNORMAL) TEG-Bypass/ECMO/Liver HN (Factor function, Platelet/Fibrin Clot Strength w/Clot Breakdown, Heparinase In All Channels) (10/28/2024 11:55 PM EDT) Citrated Kaolin Reaction Time (TEGECMOLIVER) 8.6 4.6 - 9.1 minutes 10/29/2024 2:01 AM EDT [facility] Citrated Kaolin W/Heparinase Reaction Time (TEGECMOLIVER) 8.7(H) 4.3 - 8.3 minutes 10/29/2024 2:01 AM EDT [facility] Citrated Kaolin Maximum Amplitude (TEGECMOLIVER) 47.9(L) 52.0 - 69.0 mm 10/29/2024 2:01 AM EDT [facility] Citrated Functional Fibrinogen W/Heparinase Maximum Amplitude(TEGEC MOLIVER) 22.0 15.0 - 34.0 mm 10/29/2024 2:01 AM EDT [facility] Citrated Rapid Teg W/Heparinase Maximum Amplitude (TEGECMOLIVER) 45.9(L) 53.0 - 69.0 mm 10/29/2024 2:01 AM EDT [facility] Citrated Kaolin w/Heparinase Percent Lysis (TEGECMOLIVER) 0.0 0.0 - 3.2 % 10/29/2024 2:01 AM EDT [facility] Whole Blood (Citrate) 10/28/2024 11:55 PM EDT 10/28/2024 11:58 PM EDT Kemar Sahni MD LAB BLOOD ORDERABLES Final Result [facility] [address] * (ABNORMAL) CBC, STAT (10/28/2024 8:04 PM EDT) WBC 3.9 3.8 - 10.8 10E3/uL 10/28/2024 8:36 PM EDT [facility] RBC 2.66(L) 4.20 - 5.80 10E6/uL 10/28/2024 8:36 PM EDT [facility] Hemoglobin 8.0(L) 13.2 - 17.1 g/dL 10/28/2024 8:36 PM EDT [facility] Hematocrit 23.0(L) 38.5 - 50.0 % 10/28/2024 8:36 PM EDT [facility] MCV 86.4 80.0 - 100.0 fL 10/28/2024 8:36 PM EDT [facility] MCH 29.9 27.0 - 33.0 pg 10/28/2024 8:36 PM EDT [facility] MCHC 34.6 32.0 - 36.0 g/dL 10/28/2024 8:36 PM EDT [facility] RDW 18.6(H) 11.0 - 15.0 % 10/28/2024 8:36 PM EDT [facility] Platelets 29(L) 140 - 400 10E3/uL 10/28/2024 8:36 PM EDT [facility] Comment: CNV Specimen checked for clots. None detected. MPV 7.8 7.5 - 11.5 fL 10/28/2024 8:36 PM EDT [facility] Whole Blood 10/28/2024 8:04 PM EDT 10/28/2024 8:14 PM EDT Carlos Marks MD LAB BLOOD ORDERABLES Final Result Performing Organization Address City/[facility]/ZIP Co de Phone Number [facility] [address] * (ABNORMAL) POC Glucose Monitoring Device (10/28/2024 8:03 PM EDT) POC Glucose Monitoring Device 122(H) 70 - 100 mg/dL 10/28/2024 8:04 PM EDT [facility] Blood 10/28/2024 8:03 PM EDT 10/28/2024 8:04 PM EDT Harvey Domínguez III, MD POINT OF CARE TEST ORDERABLES Final Result [facility] [address] * (ABNORMAL) TEG-Bypass/ECMO/Liver HN (Factor function, Platelet/Fibrin Clot Strength w/Clot Breakdown, Heparinase In All Channels) (10/28/2024 6:39 PM EDT) Citrated Kaolin Reaction Time (TEGECMOLIVER) 9.0 4.6 - 9.1 minutes 10/28/2024 7:50 PM EDT [facility] Citrated Kaolin W/Heparinase Reaction Time (TEGECMOLIVER) 8.3 4.3 - 8.3 minutes 10/28/2024 7:50 PM EDT [facility] Citrated Kaolin Maximum Amplitude (TEGECMOLIVER) 47.6(L) 52.0 - 69.0 mm 10/28/2024 7:50 PM EDT [facility] Citrated Functional Fibrinogen W/Heparinase Maximum Amplitude(TEGEC MOLIVER) 20.4 15.0 - 34.0 mm 10/28/2024 7:50 PM EDT [facility] Citrated Rapid Teg W/Heparinase Maximum Amplitude (TEGECMOLIVER) 44.0(L) 53.0 - 69.0 mm 10/28/2024 7:50 PM EDT [facility] Citrated Kaolin w/Heparinase Percent Lysis (TEGECMOLIVER) 0.0 0.0 - 3.2 % 10/28/2024 7:50 PM EDT [facility] Whole Blood (Citrate) 10/28/2024 6:39 PM EDT 10/28/2024 6:42 PM EDT us Kemar Sahni MD LAB BLOOD ORDERABLES Final Result [facility] [address] * (ABNORMAL) POC Glucose Monitoring Device (10/28/2024 5:31 PM EDT) [facility] POC Glucose Monitoring Device 130(H) 70 - 100 mg/dL 10/28/2024 5:31 PM EDT [facility] Blood 10/28/2024 5:31 PM EDT 10/28/2024 5:31 PM EDT us Harvey Domínguez III, MD POINT OF CARE TEST ORDERABLES Final Result [facility] [address] * Transfuse RBC Transfusion Rate: Per dept routine (10/28/2024 5:23 PM EDT) us Shay Plata MD NURSING TREATMENT OR DERABLES - BLOOD ADMIN Final Result EXTERNAL * Transfuse RBC Transfusion Rate: Per dept routine, 1 Units (10/28/2024 5:23 PM EDT) Shay Plata MD NURSING TREATMENT OR DERABLES - BLOOD ADMIN Final Result Performing Organization Address City/[facility]/ZIP Co de Phone Number EXTERNAL * US [...] EXAM: US ABDOMEN LIMITED EXAM: US DUPLEX [id number] COMPLETE INDICATION: Post-op liver transplant DATE: 10/28/2024 [...] retrohepatic inferior vena cava is patent. The jamul right kidney is partially visualized. A prominent [...] EXAM: US ABDOMEN LIMITED EXAM: US DUPLEX [id number] COMPLETE INDICATION: Post-op liver transplant DATE: 10/28/2024 [...] retrohepatic inferior vena cava is patent. The jamul right kidney is partially visualized. A prominent [...] ORDERABLES Fi nal Result * US Duplex Spg-Usn-Mjfande Comp (10/28/2024 4:23 PM EDT) Anatomical Region [...] EXAM: US ABDOMEN LIMITED EXAM: US DUPLEX [id number] COMPLETE INDICATION: Post-op liver transplant DATE: 10/28/2024 [...] retrohepatic inferior vena cava is patent. The jamul right kidney is partially visualized. A prominent [...] EXAM: US ABDOMEN LIMITED EXAM: US DUPLEX [id number] COMPLETE INDICATION: Post-op liver transplant DATE: 10/28/2024 [...] retrohepatic inferior vena cava is patent. The jamul right kidney is partially visualized. A prominent [...] Wasserman MD at 10/28/2024 4:42 PM EDT [facility] Vi Plata MD [facility] US ORDERABLES Fi nal Result * (ABNORMAL) CBC, STAT (10/28/2024 2:49 PM EDT) WBC 4.0 3.8 - 10.8 10E3/uL 10/28/2024 3:07 PM EDT [facility] RBC 2.44(L) 4.20 - 5.80 10E6/uL 10/28/2024 3:07 PM EDT [facility] Hemoglobin 7.5(L) 13.2 - 17.1 g/dL 10/28/2024 3:07 PM EDT [facility] Hematocrit 21.4(L) 38.5 - 50.0 % 10/28/2024 3:07 PM EDT [facility] MCV 87.6 80.0 - 100.0 fL 10/28/2024 3:07 PM EDT [facility] MCH 30.6 27.0 - 33.0 pg 10/28/2024 3:07 PM EDT [facility] MCHC 34.9 32.0 - 36.0 g/dL 10/28/2024 3:07 PM EDT [facility] RDW 18.4(H) 11.0 - 15.0 % 10/28/2024 3:07 PM EDT [facility] Platelets 30(L) 140 - 400 10E3/uL 10/28/2024 3:07 PM EDT [facility] Comment: CNV Specimen checked for clots. None detected. MPV 7.7 7.5 - 11.5 fL 10/28/2024 3:07 PM EDT [facility] Whole Blood 10/28/2024 2:49 PM EDT 10/28/2024 2:53 PM EDT us Carlos Marks MD LAB BLOOD ORDERABLES Final Result [facility] [address] * ECG 12 lead (MUSE) (10/28/2024 1:22 PM EDT) 10/28/2024 1:22 PM EDT Narrative MUSE - 10/29/2024 10:34 PM EDT Ventricular Rate: 104 BPM Atrial Rate: 104 BPM P-R Interval: 172 ms QRS Duration: 90 ms QT: 354 ms QTc: 465 ms P [place]: 58 degrees R [place]: -19 degrees T [place]: 38 degrees Diagnosis Line: SINUS TACHYCARDIA ^ OTHERWISE NORMAL ECG ^ ^ Confirmed by JORGE MACIAS ([id number]) on 10/29/2024 10:34:22 PM Hillary Fernandes PharmD ECG ORDERABLES Final Res ult Performing Organization Address City/[facility]/ZIP Co de Phone Number MUSE * (ABNORMAL) POC Glucose Monitoring Device (10/28/2024 12:54 PM EDT) POC Glucose Monitoring Device 119(H) 70 - 100 mg/dL 10/28/2024 12:55 PM EDT [facility] Blood 10/28/2024 12:5 4 PM EDT 10/28/2024 12:55 PM EDT Harvey Domínguez III, MD POINT OF CARE TEST ORDERABLES Final Result [facility] [address] [facility]. [address] * Transfuse RBC Transfusion Rate: Per dept routine (10/28/2024 12:31 PM EDT) us Carlos Marks MD NURSING TREATMENT ORDERABLE S - BLOOD ADMIN Final Result Performing Organization Address [facility] Co de Phone Number EXTERNAL * Transfuse RBC Transfusion Rate: Per dept routine, 1 Units (10/28/2024 12:31 PM EDT) us Carlos Marks MD NURSING TREATMENT ORDERABLE S - BLOOD ADMIN Final Result Performing Organization Address City/[facility] Co de Phone Number EXTERNAL * Protime-INR, STAT (10/28/2024 11:09 AM EDT) Protime 14.3 12.1 - 15.1 seconds 10/28/2024 11:29 AM EDT [facility] INR 1.1 0.9 - 1.1 10/28/2024 11:29 AM EDT [facility] Comment: RECOMMENDED THERAPEUTIC RANGES USING INR : Stable oral anticoagulant therapy: 2.0 - 3.0 Mechanical prosthetic heart valve: 2.5 - 3.5 Recurrent acute myocardial infarction: 2.5 - 3.5 Plasma 10/28/2024 11:0 9 AM EDT 10/28/2024 11:16 AM EDT us Carlos Marks MD LAB BLOOD ORDERABLES Final Result Performing Organization Address [facility] Co de Phone Number [facility] [address] [facility]. [address] * (ABNORMAL) Lactic Acid, STAT (10/28/2024 11:09 AM EDT) Lactate 0.3(L) 0.5 - 2.2 mmol/L 10/28/2024 11:37 AM EDT [facility] Plasma 10/28/2024 11:0 9 AM EDT 10/28/2024 11:15 AM EDT us Carlos Kulshrestha MD LAB BLOOD ORDERABLES Final Result [facility] [address] * Magnesium, STAT (10/28/2024 11:09 AM EDT) Magnesium 2.1 1.5 - 2.5 mg/dL 10/28/2024 11:47 AM EDT [facility] Plasma 10/28/2024 11:0 9 AM EDT 10/28/2024 11:16 AM EDT us Carlos Marks MD LAB BLOOD ORDERABLES Final Result Performing Organization Address [facility] Co de Phone Number [facility] [address] * (ABNORMAL) Renal Function Panel w/EGFR, STAT (10/28/2024 11:09 AM EDT) Sodium 144 133 - 146 mmol/L 10/28/2024 11:47 AM EDT [facility] Potassium 3.4(L) 3.5 - 5.3 mmol/L 10/28/2024 11:47 AM EDT [facility] Chloride 112(H) 98 - 110 mmol/L 10/28/2024 11:47 AM EDT [facility] CO2 22 21 - 33 mmol/L 10/28/2024 11:47 AM EDT [facility] Anion Gap 10 3 - 16 mmol/L 10/28/2024 11:47 AM EDT [facility] BUN 57(H) 7 - 25 mg/dL 10/28/2024 11:47 AM EDT [facility] Creatinine 2.01(H) 0.60 - 1.30 mg/dL 10/28/2024 11:47 AM EDT [facility] Glucose 108(H) 70 - 100 mg/dL 10/28/2024 11:47 AM EDT [facility] Calcium 8.8 8.6 - 10.3 mg/dL 10/28/2024 11:47 AM EDT [facility] Phosphorus 4.0 2.1 - 4.7 mg/dL 10/28/2024 11:47 AM EDT [facility] Albumin 3.3(L) 3.5 - 5.7 g/dL 10/28/2024 11:47 AM EDT [facility] Osmolality, Calculated 314(H) 278 - 305 mOsm/kg 10/28/2024 11:47 AM EDT [facility] EGFR 42 10/28/2024 11:47 AM EDT [facility] Comment:As of 2021, the estimated GFR [...] Marks MD LAB BLOOD ORDERABLES Final Result [facility] [address] [place], [place] [address] * (ABNORMAL) TEG-Bypass/ECMO/Liver HN (Factor function, Platelet/Fibrin Clot Strength w/Clot Breakdown, Heparinase In All Channels) (10/28/2024 11:09 AM EDT) Citrated Kaolin Reaction Time (TEGECMOLIVER) 9.2(H) 4.6 - 9.1 minutes 10/28/2024 12:30 PM EDT [facility] Citrated Kaolin W/Heparinase Reaction Time (TEGECMOLIVER) 9.6(H) 4.3 - 8.3 minutes 10/28/2024 12:30 PM EDT [facility] Citrated Kaolin Maximum Amplitude (TEGECMOLIVER) 51.2(L) 52.0 - 69.0 mm 10/28/2024 12:30 PM EDT [facility] Citrated Functional Fibrinogen W/Heparinase Maximum Amplitude(TEGEC MOLIVER) 21.6 15.0 - 34.0 mm 10/28/2024 12:30 PM EDT [facility] Citrated Rapid Teg W/Heparinase Maximum Amplitude (TEGECMOLIVER) 49.3(L) 53.0 - 69.0 mm 10/28/2024 12:30 PM EDT [facility] Citrated Kaolin w/Heparinase Percent Lysis (TEGECMOLIVER) 0.0 0.0 - 3.2 % 10/28/2024 12:30 PM EDT [facility] Whole Blood (Citrate) 10/28/2024 11:09 AM EDT 10/28/2024 11:14 AM EDT Kemar Sahni MD LAB BLOOD ORDERABLES Final Result Performing Organization Address City/State/[facility] Co de Phone Number [facility] [address] * (ABNORMAL) CBC (10/28/2024 10:21 AM EDT) WBC 4.1 3.8 - 10.8 10E3/uL 10/28/2024 10:41 AM EDT [facility] RBC 2.30(L) 4.20 - 5.80 10E6/uL 10/28/2024 10:41 AM EDT [facility] Hemoglobin 7.1(L) 13.2 - 17.1 g/dL 10/28/2024 10:41 AM EDT [facility] Hematocrit 20.4(L) 38.5 - 50.0 % 10/28/2024 10:41 AM EDT [facility] MCV 88.5 80.0 - 100.0 fL 10/28/2024 10:41 AM EDT [facility] MCH 30.7 27.0 - 33.0 pg 10/28/2024 10:41 AM EDT [facility] MCHC 34.7 32.0 - 36.0 g/dL 10/28/2024 10:41 AM EDT [facility] RDW 18.7(H) 11.0 - 15.0 % 10/28/2024 10:41 AM EDT [facility] Platelets 37(L) 140 - 400 10E3/uL 10/28/2024 10:41 AM EDT [facility] Comment: CNV Specimen checked for clots. None detected. MPV 7.6 7.5 - 11.5 fL 10/28/2024 10:41 AM EDT [facility] Whole Blood 10/28/2024 10:2 1 AM EDT 10/28/2024 10:29 AM EDT Carlos Marks MD LAB BLOOD ORDERABLES Final Result Performing Organization Address City/[facility]/ZIP Co de Phone Number [facility] [address] [facility]. [address] * POC Glucose Monitoring Device (10/28/2024 9:07 AM EDT) POC Glucose Monitoring Device 97 70 - 100 mg/dL 10/28/2024 9:08 AM EDT [facility] Blood 10/28/2024 9:07 AM EDT 10/28/2024 9:08 AM EDT Harvey Domínguez III, MD POINT OF CARE TEST ORDERABLES Final Result Performing Organization Address City/[facility]/ZIP Co de Phone Number [facility] [address] [facility]. [address] * (ABNORMAL) Tacrolimus level (10/28/2024 8:20 AM EDT) Tacrolimus (LC-MS) <1.0(L) 3.0 - 15.0 ng/mL 10/28/2024 2:02 PM EDT [facility] Comment:Performed via liquid chromatography tandem mass spectrometry. Detection limit: 1 ng/mL. Individual target concentrations may vary due to target organ and time after transplant. This test has been developed and its performance characteristics determined by [facility] which is certified under the Clinical Laboratory [...] EDT 10/28/2024 8:29 AM EDT Priti Geiger [facility] LAB BLOOD ORDERABLES Final Re sult Performing Organization Address [facility]/ZIP Co de Phone Number [facility] [address] [facility]. [address] * (ABNORMAL) POC Glucose Monitoring Device (10/28/2024 8:10 AM EDT) POC Glucose Monitoring Device 102(H) 70 - 100 mg/dL 10/28/2024 8:11 AM EDT [facility] Blood 10/28/2024 8:10 AM EDT 10/28/2024 8:11 AM EDT Harvey Domínguez III, MD POINT OF CARE TEST ORDERABLES Final Result Performing Organization Address [facility] Co de Phone Number [facility] [address] [facility]. [address] * POC Glucose Monitoring Device (10/28/2024 6:17 AM EDT) POC Glucose Monitoring Device 100 70 - 100 mg/dL 10/28/2024 6:18 AM EDT [facility] Blood 10/28/2024 6:17 AM EDT 10/28/2024 6:18 AM EDT Harvey Domínguez III, MD POINT OF CARE TEST ORDERABLES Final Result Performing Organization Address City/[facility] Co de Phone Number [facility] [address] [facility]. [address] * Prepare Platelets, leukoreduced (10/28/2024 6:15 AM EDT) Product Code L6911Z24 HCLL Unit Number [id number] HCLL Dispense Status Presumed Transfused_PT HCLL Blood Expiration Date HCLL Coding System [id number] HCLL Product Code V8706W21 HCLL Unit Number [id number] HCLL Dispense Status Presumed Transfused_PT HCLL Blood Expiration Date [id number] HCLL Coding System [id number] HCLL us Attending Provider Unknown BLOOD BANK PRODUCT OR DERABLES Final Result Performing Organization Address [facility] de Phone Number HCLL * Prepare Fresh Frozen Plasma (10/28/2024 6:15 AM EDT) Product Code A0399N62 HCLL Unit Number [id number] HCLL Dispense Status Released from Crossmatch_RE HCLL Blood Expiration Date HCLL Coding System [id number] HCLL Product Code Q6907Z97 HCLL Unit Number [id number] HCLL Dispense Status Presumed Transfused_PT HCLL Blood Expiration Date HCLL Coding System OERS727 HCLL Product Code V9642Z47 HCLL Unit Number [id number] HCLL Dispense Status Released from Crossmatch_RE HCLL Blood Expiration Date HCLL Coding System FRLS076 HCLL Product Code R4150Q05 HCLL Unit Number [id number] HCLL Dispense Status Presumed Transfused_PT HCLL Blood Expiration Date HCLL Coding System NJRM064 HCLL Product Code G5332B78 HCLL Unit Number [id number] HCLL Dispense Status Released from Crossmatch_RE HCLL Blood Expiration Date HCLL Coding System [id number] HCLL us Attending Provider Unknown BLOOD BANK PRODUCT OR DERABLES Final Result Performing Organization Address City/[facility] Co de Phone Number HCLL * Prepare RBC, leukoreduced (10/28/2024 6:15 AM EDT) Product Code S7458C87 HCLL Unit Number [id number] HCLL Dispense Status Released from Crossmatch_RE HCLL Blood Expiration Date [id number] HCLL Coding System [id number] HCLL Product Code X5762U79 HCLL Unit Number [id number] HCLL Dispense Status Presumed Transfused_PT HCLL Blood Expiration Date [id number] HCLL Coding System GOEE251 HCLL Product Code L4207X25 HCLL Unit Number [id number] HCLL Dispense Status Released from Crossmatch_RE HCLL Blood Expiration Date 303963953638 HCLL Coding System XQHZ768 HCLL Product Code D8568N05 HCLL Unit Number [id number] HCLL Dispense Status Presumed Transfused_PT HCLL Blood Expiration Date [id number] HCLL Coding System BVBG574 HCLL Product Code B2007T17 HCLL Unit Number [id number] HCLL Dispense Status Released from Crossmatch_RE HCLL Blood Expiration Date [id number] HCLL Coding System [id number] HCLL us Attending Provider Unknown BLOOD BANK PRODUCT OR DERABLES Final Result Performing Organization Address City/[facility] Co de Phone Number HCLL * Prepare Platelets, leukoreduced, 1 Units (10/28/2024 6:15 AM EDT) Product Code I1091G70 HCLL Unit Number [id number] HCLL Dispense Status Presumed Transfused_PT HCLL Blood Expiration Date [id number] HCLL Coding System [id number] HCLL Blood Bank Product us John Pina MD BLOOD BANK PRODUCT ORDERABLES F inal Result Performing Organization Address City/[facility]/ZIP Co de Phone Number HCLL * Prepare Cryoprecipitate, 1 Units (10/28/2024 6:15 AM EDT) Product Code X4287F00 HCLL Unit Number [id number] HCLL Dispense Status Presumed Transfused_PT HCLL Blood Expiration Date HCLL Coding System EZQL541 HCLL Product Code E4561A37 HCLL Unit Number [id number] HCLL Dispense Status Presumed Transfused_PT HCLL Blood Expiration Date HCLL Coding System [id number] HCLL Blood Bank Product John Pina MD BLOOD BANK PRODUCT ORDERABLES F inal Result Performing Organization Address [facility] Co de Phone Number HCLL * Prepare Fresh Frozen Plasma, 1 Units (10/28/2024 6:15 AM EDT) Product Code T8595X17 HCLL Unit Number [id number] HCLL Dispense Status Presumed Transfused_PT HCLL Blood Expiration Date HCLL Coding System JSTB441 HCLL Blood Bank Product John Pina MD BLOOD BANK PRODUCT ORDERABLES F inal Result Performing Organization Address [facility] Co de Phone Number HCLL * Prepare Cryoprecipitate, 1 Units (10/28/2024 6:15 AM EDT) Product Code C2328S69 HCLL Unit Number [id number] HCLL Dispense Status Presumed Transfused_PT HCLL Blood Expiration Date HCLL Coding System LNKD439 HCLL Product Code Q9085V44 HCLL Unit Number [id number] HCLL Dispense Status Presumed Transfused_PT HCLL Blood Expiration Date 757027212154 HCLL Coding System DHAX242 HCLL Product Code H7555B05 HCLL Unit Number [id number] HCLL Dispense Status Presumed Transfused_PT HCLL Blood Expiration Date 258832716109 HCLL Coding System NSYJ011 HCLL Product Code O4066S99 HCLL Unit Number [id number] HCLL Dispense Status Presumed Transfused_PT HCLL Blood Expiration Date 906292642123 [facility] Coding System ESYZ557 HCLL Blood Bank Product us John Pina MD BLOOD BANK PRODUCT ORDERABLES F inal Result [facility] * (ABNORMAL) POC Glucose Monitoring Device (10/28/2024 4:55 AM EDT) [facility] Signature POC Glucose Monitoring Device 104(H) 70 - 100 mg/dL 10/28/2024 4:57 AM EDT [facility] Blood 10/28/2024 4:55 AM EDT 10/28/2024 4:57 AM EDT us Harvey Domínguez III, MD POINT OF CARE TEST ORDERABLES Final Result Performing Organization Address City/[facility]/ZIP Co de Phone Number [facility] [address] * TEG-Bypass/ECMO/Liver HN (Factor function, Platelet/Fibrin Clot Strength w/Clot Breakdown, Heparinase In All Channels) (10/28/2024 4:13 AM EDT) Citrated Kaolin Reaction Time (TEGECMOLIVER) 7.2 4.6 - 9.1 minutes 10/28/2024 5:38 AM EDT [facility] Citrated Kaolin W/Heparinase Reaction Time (TEGECMOLIVER) 7.8 4.3 - 8.3 minutes 10/28/2024 5:38 AM EDT [facility] Citrated Kaolin Maximum Amplitude (TEGECMOLIVER) 53.0 52.0 - 69.0 mm 10/28/2024 5:38 AM EDT [facility] Citrated Functional Fibrinogen W/Heparinase Maximum Amplitude(TEGEC MOLIVER) 21.4 15.0 - 34.0 mm 10/28/2024 5:38 AM EDT [facility] Citrated Rapid Teg W/Heparinase Maximum Amplitude (TEGECMOLIVER) 54.7 53.0 - 69.0 mm 10/28/2024 5:38 AM EDT [facility] Citrated Kaolin w/Heparinase Percent Lysis (TEGECMOLIVER) 0.0 0.0 - 3.2 % 10/28/2024 5:38 AM EDT [facility] Whole Blood (Citrate) 10/28/2024 4:13 AM EDT 10/28/2024 4:28 AM EDT Kemar Sahni MD LAB BLOOD ORDERABLES Final Result Performing Organization Address City/[facility] Co de Phone Number [facility] [address] [facility]. [address] * Protime-INR (10/28/2024 4:13 AM EDT) Protime 14.6 12.1 - 15.1 seconds 10/28/2024 4:53 AM EDT [facility] INR 1.1 0.9 - 1.1 10/28/2024 4:53 AM EDT [facility] Comment: RECOMMENDED THERAPEUTIC RANGES USING INR : Stable oral anticoagulant therapy: 2.0 - 3.0 Mechanical prosthetic heart valve: 2.5 - 3.5 Recurrent acute myocardial infarction: 2.5 - 3.5 Plasma 10/28/2024 4:13 AM EDT 10/28/2024 4:41 AM EDT Kemar Sahni MD LAB BLOOD ORDERABLES Final Result [facility] [address] [facility]. [address] * Magnesium (10/28/2024 4:13 AM EDT) Magnesium 2.2 1.5 - 2.5 mg/dL 10/28/2024 5:15 AM EDT [facility] Plasma 10/28/2024 4:13 AM EDT 10/28/2024 4:41 AM EDT Kemar Sahni MD LAB BLOOD ORDERABLES Final Result [facility] [address] [place] [address], [facility] * (ABNORMAL) Hepatic Function Panel (10/28/2024 4:13 AM EDT) Total Bilirubin 2.3(H) 0.0 - 1.5 mg/dL 10/28/2024 5:15 AM EDT [facility] Bilirubin, Direct 1.67(H) 0.00 - 0.40 mg/dL 10/28/2024 5:15 AM EDT [facility] AST 44(H) 13 - 39 U/L 10/28/2024 5:15 AM EDT [facility] ALT 101(H) 7 - 52 U/L 10/28/2024 5:15 AM EDT [facility] Alkaline Phosphatase 26(L) 36 - 125 U/L 10/28/2024 5:15 AM EDT [facility] Total Protein 4.5(L) 6.4 - 8.9 g/dL 10/28/2024 5:15 AM EDT [facility] Albumin 3.1(L) 3.5 - 5.7 g/dL 10/28/2024 5:15 AM EDT [facility] Bilirubin, Indirect 0.63 0.00 - 1.10 mg/dL 10/28/2024 5:15 AM EDT [facility] Plasma 10/28/2024 4:13 AM EDT 10/28/2024 4:41 AM EDT us Kemar Sahni MD LAB BLOOD ORDERABLES Final Result [facility] [address] [place] [address], [facility] * (ABNORMAL) Renal Function Panel w/EGFR (10/28/2024 4:13 AM EDT) Sodium 142 133 - 146 mmol/L 10/28/2024 5:15 AM EDT [facility] Potassium 3.5 3.5 - 5.3 mmol/L 10/28/2024 5:15 AM EDT [facility] Chloride 111(H) 98 - 110 mmol/L 10/28/2024 5:15 AM EDT [facility] CO2 22 21 - 33 mmol/L 10/28/2024 5:15 AM EDT [facility] Anion Gap 9 3 - 16 mmol/L 10/28/2024 5:15 AM EDT [facility] BUN 58(H) 7 - 25 mg/dL 10/28/2024 5:15 AM EDT [facility] Creatinine 2.24(H) 0.60 - 1.30 mg/dL 10/28/2024 5:15 AM EDT [facility] Glucose 103(H) 70 - 100 mg/dL 10/28/2024 5:15 AM EDT [facility] Calcium 9.1 8.6 - 10.3 mg/dL 10/28/2024 5:15 AM EDT [facility] Phosphorus 4.8(H) 2.1 - 4.7 mg/dL 10/28/2024 5:15 AM EDT [facility] Albumin 3.1(L) 3.5 - 5.7 g/dL 10/28/2024 5:15 AM EDT [facility] Osmolality, Calculated 310(H) 278 - 305 mOsm/kg 10/28/2024 5:15 AM EDT [facility] EGFR 37 10/28/2024 5:15 AM EDT [facility] Comment:As of 2021, the estimated GFR [...] Sahni MD LAB BLOOD ORDERABLES Final Result [facility] [address] [place] [address], [facility] * (ABNORMAL) CBC (10/28/2024 4:13 AM EDT) WBC 4.5 3.8 - 10.8 10E3/uL 10/28/2024 5:09 AM EDT [facility] RBC 2.39(L) 4.20 - 5.80 10E6/uL 10/28/2024 5:09 AM EDT [facility] Hemoglobin 7.3(L) 13.2 - 17.1 g/dL 10/28/2024 5:09 AM EDT [facility] Hematocrit 21.0(L) 38.5 - 50.0 % 10/28/2024 5:09 AM EDT [facility] MCV 87.8 80.0 - 100.0 fL 10/28/2024 5:09 AM EDT [facility] MCH 30.5 27.0 - 33.0 pg 10/28/2024 5:09 AM EDT [facility] MCHC 34.7 32.0 - 36.0 g/dL 10/28/2024 5:09 AM EDT [facility] RDW 18.7(H) 11.0 - 15.0 % 10/28/2024 5:09 AM EDT [facility] Platelets 38(L) 140 - 400 10E3/uL 10/28/2024 5:09 AM EDT [facility] Comment: CNV Specimen checked for clots. None detected. MPV 7.6 7.5 - 11.5 fL 10/28/2024 5:09 AM EDT [facility] Whole Blood 10/28/2024 4:13 AM EDT 10/28/2024 4:41 AM EDT Kemar Sahni MD LAB BLOOD ORDERABLES Final Result [facility] [address] * (ABNORMAL) POC Glucose Monitoring Device (10/28/2024 4:04 AM EDT) POC Glucose Monitoring Device 103(H) 70 - 100 mg/dL 10/28/2024 4:05 AM EDT [facility] Blood 10/28/2024 4:04 AM EDT 10/28/2024 4:05 AM EDT us Harvey Domínguez III, MD POINT OF CARE TEST ORDERABLES Final Result Performing Organization Address City/[facility]/ZIP Co de Phone Number [facility] [address] * (ABNORMAL) POC Glucose Monitoring Device (10/28/2024 3:00 AM EDT) POC Glucose Monitoring Device 106(H) 70 - 100 mg/dL 10/28/2024 3:01 AM EDT [facility] Blood 10/28/2024 3:00 AM EDT 10/28/2024 3:01 AM EDT us Harvey Domínguez III, MD POINT OF CARE TEST ORDERABLES Final Result Performing Organization Address [facility] Co de Phone Number [facility] [address] * (ABNORMAL) POC Glucose Monitoring Device (10/28/2024 2:32 AM EDT) POC Glucose Monitoring Device 109(H) 70 - 100 mg/dL 10/28/2024 2:33 AM EDT [facility] Blood 10/28/2024 2:32 AM EDT 10/28/2024 2:33 AM EDT us Harvey Domínguez III, MD POINT OF CARE TEST ORDERABLES Final Result [facility] [address] * (ABNORMAL) POC Glucose Monitoring Device (10/28/2024 2:14 AM EDT) POC Glucose Monitoring Device 115(H) 70 - 100 mg/dL 10/28/2024 2:15 AM EDT [facility] Blood 10/28/2024 2:14 AM EDT 10/28/2024 2:15 AM EDT Result [facility] Harvey Domínguez III, MD POINT OF CARE TEST ORDERABLES Final Result [facility] [address] * (ABNORMAL) POC Glucose Monitoring Device (10/28/2024 2:03 AM EDT) POC Glucose Monitoring Device 101(H) 70 - 100 mg/dL 10/28/2024 2:04 AM EDT [facility] Blood 10/28/2024 2:03 AM EDT 10/28/2024 2:04 AM EDT Harvey Domínguez III, MD POINT OF CARE TEST ORDERABLES Final Result Performing Organization Address City/[facility]/ZIP Co de Phone Number [facility] [address] [facility]. [address] * Transfuse RBC Transfusion Rate: Per [...] - 9.1 minutes 10/28/2024 1:22 AM EDT [facility] Citrated Kaolin W/Heparinase Reaction Time (TEGECMOLIVER) 7.7 4.3 - 8.3 minutes 10/28/2024 1:22 AM EDT [facility] Citrated Kaolin Maximum Amplitude (TEGECMOLIVER) 54.4 52.0 - 69.0 mm 10/28/2024 1:22 AM EDT [facility] Citrated Functional Fibrinogen W/Heparinase Maximum Amplitude(TEGEC MOLIVER) 20.4 15.0 - 34.0 mm 10/28/2024 1:22 AM EDT [facility] Citrated Rapid Teg W/Heparinase Maximum Amplitude (TEGECMOLIVER) 51.0(L) 53.0 - 69.0 mm 10/28/2024 1:22 AM EDT [facility] Citrated Kaolin w/Heparinase Percent Lysis (TEGECMOLIVER) 0.0 0.0 - 3.2 % 10/28/2024 1:22 AM EDT [facility] Whole Blood (Citrate) 10/28/2024 12:05 AM EDT 10/28/2024 12:09 AM EDT Kemar Sahni MD LAB BLOOD ORDERABLES Final Result Performing Organization Address City/State/[facility] Co de Phone Number [facility] [address] [id number] * Magnesium (10/28/2024 12:05 AM EDT) Magnesium 2.2 1.5 - 2.5 mg/dL 10/28/2024 1:59 AM EDT [facility] Plasma 10/28/2024 12:0 5 AM EDT 10/28/2024 12:11 AM EDT Kemar Sahni MD LAB BLOOD ORDERABLES Final Result [facility] [address] [place] [id number], [facility] * (ABNORMAL) Renal Function Panel w/EGFR (10/28/2024 12:05 AM EDT) Sodium 144 133 - 146 mmol/L 10/28/2024 1:59 AM EDT [facility] Potassium 3.4(L) 3.5 - 5.3 mmol/L 10/28/2024 1:59 AM EDT [facility] Chloride 112(H) 98 - 110 mmol/L 10/28/2024 1:59 AM EDT [facility] CO2 19(L) 21 - 33 mmol/L 10/28/2024 1:59 AM EDT [facility] Anion Gap 13 3 - 16 mmol/L 10/28/2024 1:59 AM EDT [facility] BUN 59(H) 7 - 25 mg/dL 10/28/2024 1:59 AM EDT [facility] Creatinine 2.42(H) 0.60 - 1.30 mg/dL 10/28/2024 1:59 AM EDT [facility] Glucose 118(H) 70 - 100 mg/dL 10/28/2024 1:59 AM EDT [facility] Calcium 9.0 8.6 - 10.3 mg/dL 10/28/2024 1:59 AM EDT [facility] Phosphorus 5.3(H) 2.1 - 4.7 mg/dL 10/28/2024 1:59 AM EDT [facility] Albumin 3.1(L) 3.5 - 5.7 g/dL 10/28/2024 1:59 AM EDT [facility] Osmolality, Calculated 316(H) 278 - 305 mOsm/kg 10/28/2024 1:59 AM EDT [facility] EGFR 34 10/28/2024 1:59 AM EDT [facility] Comment:As of 2021, the estimated GFR [...] Sahni MD LAB BLOOD ORDERABLES Final Result [facility] [address] [id number], [facility] * (ABNORMAL) Differential (10/28/2024 12:05 AM EDT) Neutrophils Relative 88.6(H) 40.0 - 80.0 % 10/28/2024 12:41 AM EDT [facility] Lymphocytes Relative 2.5(L) 15.0 - 45.0 % 10/28/2024 12:41 AM EDT [facility] Monocytes Relative 6.1 0.0 - 12.0 % 10/28/2024 12:41 AM EDT [facility] Eosinophils Relative 2.4 0.0 - 8.0 % 10/28/2024 12:41 AM EDT [facility] Basophils Relative 0.4 0.0 - 1.0 % 10/28/2024 12:41 AM EDT [facility] nRBC 0 0 - 0 /100 WBC 10/28/2024 12:41 AM EDT [facility] Neutrophils Absolute 4,341 1,520 - 8,640 /uL 10/28/2024 12:41 AM EDT [facility] Lymphocytes Absolute 123(L) 570 - 4,860 /uL 10/28/2024 12:41 AM EDT [facility] Monocytes Absolute 299 0 - 1,296 /uL 10/28/2024 12:41 AM EDT [facility] Eosinophils Absolute 118 0 - 864 /uL 10/28/2024 12:41 AM EDT [facility] Basophils Absolute 20 0 - 108 /uL 10/28/2024 12:41 AM EDT [facility] Whole Blood 10/28/2024 12:0 5 AM EDT 10/28/2024 12:11 AM EDT Kemar Sahni MD LAB BLOOD ORDERABLES Final Result Performing Organization Address City/State/[facility] Co de Phone Number [facility] [address] [place] [address], [facility] * (ABNORMAL) CBC (10/28/2024 12:05 AM EDT) WBC 4.9 3.8 - 10.8 10E3/uL 10/28/2024 12:41 AM EDT [facility] RBC 2.18(L) 4.20 - 5.80 10E6/uL 10/28/2024 12:41 AM EDT [facility] Hemoglobin 6.7(L) 13.2 - 17.1 g/dL 10/28/2024 12:41 AM EDT [facility] Hematocrit 19.2(L) 38.5 - 50.0 % 10/28/2024 12:41 AM EDT [facility] MCV 87.8 80.0 - 100.0 fL 10/28/2024 12:41 AM EDT [facility] MCH 30.6 27.0 - 33.0 pg 10/28/2024 12:41 AM EDT [facility] MCHC 34.8 32.0 - 36.0 g/dL 10/28/2024 12:41 AM EDT [facility] RDW 19.6(H) 11.0 - 15.0 % 10/28/2024 12:41 AM EDT [facility] Platelets 45(L) 140 - 400 10E3/uL 10/28/2024 12:41 AM EDT [facility] Comment: CNV Specimen checked for clots. None detected. MPV 7.8 7.5 - 11.5 fL 10/28/2024 12:41 AM EDT [facility] Whole Blood 10/28/2024 12:0 5 AM EDT 10/28/2024 12:11 AM EDT Kemar Sahni MD LAB BLOOD ORDERABLES Final Result Performing Organization Address City/[facility]/ZIP Co de Phone Number [facility] [address] [place] [address]. [address] * (ABNORMAL) POC Glucose Monitoring Device (10/28/2024 12:03 AM EDT) POC Glucose Monitoring Device 122(H) 70 - 100 mg/dL 10/28/2024 12:04 AM EDT [facility] Blood 10/28/2024 12:0 3 AM EDT 10/28/2024 12:04 AM EDT Harvey Domínguez III, MD POINT OF CARE TEST ORDERABLES Final Result Performing Organization Address City/[facility] Co de Phone Number [facility] [address] [facility]. [address] * (ABNORMAL) POC Glucose Monitoring Device (10/27/2024 10:03 PM EDT) POC Glucose Monitoring Device 127(H) 70 - 100 mg/dL 10/27/2024 10:03 PM EDT [facility] Blood 10/27/2024 10:0 3 PM EDT 10/27/2024 10:03 PM EDT Harvey Domínguez III, MD POINT OF CARE TEST ORDERABLES Final Result [facility] [address] [place] [facility]. [address] * (ABNORMAL) POC Glucose Monitoring Device (10/27/2024 8:06 PM EDT) POC Glucose Monitoring Device 128(H) 70 - 100 mg/dL 10/27/2024 8:45 PM EDT [facility] Blood 10/27/2024 8:06 PM EDT 10/27/2024 8:45 PM EDT Harvey Domínguez III, MD POINT OF CARE TEST ORDERABLES Final Result Performing Organization Address City/[facility]/ZIP Co de Phone Number [facility] [address] [place] * (ABNORMAL) POC Glucose Monitoring Device (10/27/2024 6:00 PM EDT) POC Glucose Monitoring Device 128(H) 70 - 100 mg/dL 10/27/2024 6:00 PM EDT [facility] Blood 10/27/2024 6:00 PM EDT 10/27/2024 6:00 PM EDT Harvey Domínguez III, MD POINT OF CARE TEST ORDERABLES Final Result Performing Organization Address [facility] Co de Phone Number [facility] [address] [facility]. [address] * Lactic Acid, STAT (10/27/2024 5:41 PM EDT) Lactate 0.5 0.5 - 2.2 mmol/L 10/27/2024 6:28 PM EDT [facility] Plasma 10/27/2024 5:41 PM EDT 10/27/2024 5:49 PM EDT Narrative [facility] - 10/27/2024 6:28 PM EDT Redraw John Moreno MD LAB BLOOD ORDERABLES Final R esult [facility] [address] [facility]. [address] * (ABNORMAL) Hepatic Function Panel, STAT (10/27/2024 5:13 PM EDT) Total Bilirubin 1.7(H) 0.0 - 1.5 mg/dL 10/27/2024 5:50 PM EDT [facility] Bilirubin, Direct 1.17(H) 0.00 - 0.40 mg/dL 10/27/2024 5:50 PM EDT [facility] AST 60(H) 13 - 39 U/L 10/27/2024 5:50 PM EDT [facility] ALT 134(H) 7 - 52 U/L 10/27/2024 5:50 PM EDT [facility] Alkaline Phosphatase 27(L) 36 - 125 U/L 10/27/2024 5:50 PM EDT [facility] Total Protein 4.1(L) 6.4 - 8.9 g/dL 10/27/2024 5:50 PM EDT [facility] Albumin 2.9(L) 3.5 - 5.7 g/dL 10/27/2024 5:50 PM EDT [facility] Bilirubin, Indirect 0.53 0.00 - 1.10 mg/dL 10/27/2024 5:50 PM EDT [facility] Plasma 10/27/2024 5:13 PM EDT 10/27/2024 5:23 PM EDT Shay Plata MD LAB BLOOD ORDERABLES Final Result [facility] [address] [place] [address], [facility] * (ABNORMAL) TEG-Bypass/ECMO/Liver HN (Factor function, Platelet/Fibrin Clot Strength w/Clot Breakdown, Heparinase In All Channels) (10/27/2024 5:13 PM EDT) Citrated Kaolin Reaction Time (TEGECMOLIVER) 8.0 4.6 - 9.1 minutes 10/27/2024 6:56 PM EDT [facility] Citrated Kaolin W/Heparinase Reaction Time (TEGECMOLIVER) 6.8 4.3 - 8.3 minutes 10/27/2024 6:56 PM EDT [facility] Citrated Kaolin Maximum Amplitude (TEGECMOLIVER) 55.4 52.0 - 69.0 mm 10/27/2024 6:56 PM EDT [facility] Citrated Functional Fibrinogen W/Heparinase Maximum Amplitude(TEGEC MOLIVER) 22.9 15.0 - 34.0 mm 10/27/2024 6:56 PM EDT [facility] Citrated Rapid Teg W/Heparinase Maximum Amplitude (TEGECMOLIVER) 50.8(L) 53.0 - 69.0 mm 10/27/2024 6:56 PM EDT [facility] Citrated Kaolin w/Heparinase Percent Lysis (TEGECMOLIVER) 0.1 0.0 - 3.2 % 10/27/2024 6:56 PM EDT [facility] Whole Blood (Citrate) 10/27/2024 5:13 PM EDT 10/27/2024 5:20 PM EDT Kemar Sahni MD LAB BLOOD ORDERABLES Final Result Performing Organization Address City/[facility] Co de Phone Number [facility] [address] [facility]. [address] * (ABNORMAL) Protime-INR (10/27/2024 5:13 PM EDT) Protime 15.2(H) 12.1 - 15.1 seconds 10/27/2024 5:40 PM EDT [facility] INR 1.1 0.9 - 1.1 10/27/2024 5:40 PM EDT [facility] Comment: RECOMMENDED THERAPEUTIC RANGES USING INR : Stable oral anticoagulant therapy: 2.0 - 3.0 Mechanical prosthetic heart valve: 2.5 - 3.5 Recurrent acute myocardial infarction: 2.5 - 3.5 Plasma 10/27/2024 5:13 PM EDT 10/27/2024 5:23 PM EDT Kemar Sahni MD LAB BLOOD ORDERABLES Final Result [facility] [address] [facility]. [address] * Magnesium (10/27/2024 5:13 PM EDT) Magnesium 2.4 1.5 - 2.5 mg/dL 10/27/2024 5:53 PM EDT [facility] Plasma 10/27/2024 5:13 PM EDT 10/27/2024 5:23 PM EDT Kemar Sahni MD LAB BLOOD ORDERABLES Final Result [facility] [address] * (ABNORMAL) Hepatic Function Panel (10/27/2024 5:13 PM EDT) Total Bilirubin 1.7(H) 0.0 - 1.5 mg/dL 10/27/2024 5:53 PM EDT [facility] Bilirubin, Direct 1.10(H) 0.00 - 0.40 mg/dL 10/27/2024 5:53 PM EDT [facility] AST 62(H) 13 - 39 U/L 10/27/2024 5:53 PM EDT [facility] ALT 134(H) 7 - 52 U/L 10/27/2024 5:53 PM EDT [facility] Alkaline Phosphatase 27(L) 36 - 125 U/L 10/27/2024 5:53 PM EDT [facility] Total Protein 4.1(L) 6.4 - 8.9 g/dL 10/27/2024 5:53 PM EDT [facility] Albumin 2.9(L) 3.5 - 5.7 g/dL 10/27/2024 5:53 PM EDT [facility] Bilirubin, Indirect 0.60 0.00 - 1.10 mg/dL 10/27/2024 5:53 PM EDT [facility] Plasma 10/27/2024 5:13 PM EDT 10/27/2024 5:23 PM EDT Kemar Sahni MD LAB BLOOD ORDERABLES Final Result [facility] [address] * (ABNORMAL) Renal Function Panel w/EGFR (10/27/2024 5:13 PM EDT) Sodium 142 133 - 146 mmol/L 10/27/2024 5:53 PM EDT [facility] Potassium 3.4(L) 3.5 - 5.3 mmol/L 10/27/2024 5:53 PM EDT [facility] Chloride 109 98 - 110 mmol/L 10/27/2024 5:53 PM EDT [facility] CO2 22 21 - 33 mmol/L 10/27/2024 5:53 PM EDT [facility] Anion Gap 11 3 - 16 mmol/L 10/27/2024 5:53 PM EDT [facility] BUN 61(H) 7 - 25 mg/dL 10/27/2024 5:53 PM EDT [facility] Creatinine 2.42(H) 0.60 - 1.30 mg/dL 10/27/2024 5:53 PM EDT [facility] Glucose 125(H) 70 - 100 mg/dL 10/27/2024 5:53 PM EDT [facility] Calcium 8.8 8.6 - 10.3 mg/dL 10/27/2024 5:53 PM EDT [facility] Phosphorus 5.7(H) 2.1 - 4.7 mg/dL 10/27/2024 5:53 PM EDT [facility] Albumin 2.9(L) 3.5 - 5.7 g/dL 10/27/2024 5:53 PM EDT [facility] Osmolality, Calculated 313(H) 278 - 305 mOsm/kg 10/27/2024 5:53 PM EDT [facility] EGFR 34 10/27/2024 5:53 PM EDT [facility] Comment:As of 2021, the estimated GFR [...] Sahni MD LAB BLOOD ORDERABLES Final Result [facility] [address] [place] [address], [facility] * (ABNORMAL) CBC (10/27/2024 5:13 PM EDT) WBC 4.9 3.8 - 10.8 10E3/uL 10/27/2024 6:14 PM EDT [facility] RBC 2.44(L) 4.20 - 5.80 10E6/uL 10/27/2024 6:14 PM EDT [facility] Hemoglobin 7.4(L) 13.2 - 17.1 g/dL 10/27/2024 6:14 PM EDT [facility] Hematocrit 21.4(L) 38.5 - 50.0 % 10/27/2024 6:14 PM EDT [facility] MCV 87.6 80.0 - 100.0 fL 10/27/2024 6:14 PM EDT [facility] MCH 30.3 27.0 - 33.0 pg 10/27/2024 6:14 PM EDT [facility] MCHC 34.6 32.0 - 36.0 g/dL 10/27/2024 6:14 PM EDT [facility] RDW 19.6(H) 11.0 - 15.0 % 10/27/2024 6:14 PM EDT [facility] Platelets 47(L) 140 - 400 10E3/uL 10/27/2024 6:14 PM EDT [facility] Comment: CNV Specimen checked for clots. None detected. MPV 8.1 7.5 - 11.5 fL 10/27/2024 6:14 PM EDT [facility] Whole Blood 10/27/2024 5:13 PM EDT 10/27/2024 5:23 PM EDT us Kemar Sahni MD LAB BLOOD ORDERABLES Final Result [facility] [address] [facility]. [address] * (ABNORMAL) POC Glucose Monitoring Device (10/27/2024 3:57 PM EDT) POC Glucose Monitoring Device 131(H) 70 - 100 mg/dL 10/27/2024 3:58 PM EDT [facility] Blood 10/27/2024 3:57 PM EDT 10/27/2024 3:58 PM EDT Harvey Domínguez III, MD POINT OF CARE TEST ORDERABLES Final Result Performing Organization Address [facility]/ZIP Co de Phone Number [facility] [address] * (ABNORMAL) CBC, STAT (10/27/2024 2:40 PM EDT) WBC 5.8 3.8 - 10.8 10E3/uL 10/27/2024 2:54 PM EDT [facility] RBC 2.43(L) 4.20 - 5.80 10E6/uL 10/27/2024 2:54 PM EDT [facility] Hemoglobin 7.5(L) 13.2 - 17.1 g/dL 10/27/2024 2:54 PM EDT [facility] Hematocrit 21.5(L) 38.5 - 50.0 % 10/27/2024 2:54 PM EDT [facility] MCV 88.2 80.0 - 100.0 fL 10/27/2024 2:54 PM EDT [facility] MCH 30.7 27.0 - 33.0 pg 10/27/2024 2:54 PM EDT [facility] MCHC 34.8 32.0 - 36.0 g/dL 10/27/2024 2:54 PM EDT [facility] RDW 19.1(H) 11.0 - 15.0 % 10/27/2024 2:54 PM EDT [facility] Platelets 50(L) 140 - 400 10E3/uL 10/27/2024 2:54 PM EDT [facility] MPV 7.5 7.5 - 11.5 fL 10/27/2024 2:54 PM EDT [facility] Whole Blood 10/27/2024 2:40 PM EDT 10/27/2024 2:44 PM EDT us John Moreno MD LAB BLOOD ORDERABLES Final R esult [facility] [address] [id number], [facility] * (ABNORMAL) Blood Gas, Arterial, STAT (10/27/2024 2:40 PM EDT) O2 Sat, Arterial 98 10/27/2024 2:46 PM EDT [facility] FIO2 RA 10/27/2024 2:46 PM EDT [facility] pH, Arterial 7.37 7.35 - 7.45 10/27/2024 2:46 PM EDT [facility] pCO2, Arterial 35 35 - 45 mm Hg 10/27/2024 2:46 PM EDT [facility] pO2, Arterial 92 80 - 100 mm Hg 10/27/2024 2:46 PM EDT [facility] HCO3, Arterial 21(L) 22 - 26 mmol/L 10/27/2024 2:46 PM EDT [facility] CO2 Content,Arteri al 21(L) 23 - 27 mmol/L 10/27/2024 2:46 PM EDT [facility] Base Excess, Arterial -4.6(L) -2.0 - 3.0 mmol/L 10/27/2024 2:46 PM EDT [facility] %HBO2, Arterial 95.4 95.0 - 98.0 % 10/27/2024 2:46 PM EDT [facility] Carboxyhemoglo bin, Arterial 1.6 % 10/27/2024 2:46 PM EDT [facility] Comment: CARBOXYHEMOGLOBIN (CO) REFERENCE RANGES: Non-Smokers: <2 % Smokers: <8 % TOXIC: >20 % Methemoglobin, Arterial 1.0 0.0 - 1.5 % 10/27/2024 2:46 PM EDT [facility] Reduced hemoglobin, Arterial 2.1 0.0 - 5.0 % 10/27/2024 2:46 PM EDT [facility] Blood, Arterial 10/27/2024 2 :40 PM EDT 10/27/2024 2:44 PM EDT Narrative [facility] - 10/27/2024 2:46 PM EDT Post extubation John Moreno MD LAB BLOOD ORDERABLES Final R esult Performing Organization Address [facility]/ZIP Co de Phone Number [facility] [address] * (ABNORMAL) POC Glucose Monitoring Device (10/27/2024 2:06 PM EDT) [facility] Signature POC Glucose Monitoring Device 134(H) 70 - 100 mg/dL 10/27/2024 2:06 PM EDT [facility] Blood 10/27/2024 2:06 PM EDT 10/27/2024 2:06 PM EDT Harvey Domínguez III, MD POINT OF CARE TEST ORDERABLES Final Result Performing Organization Address [facility] de Phone Number [facility] [address] * (ABNORMAL) Blood gas, arterial (10/27/2024 12:35 PM EDT) O2 Sat, Arterial 99 10/27/2024 12:46 PM EDT [facility] FIO2 SBT 30% 10/27/2024 12:46 PM EDT [facility] pH, Arterial 7.35 7.35 - 7.45 10/27/2024 12:46 PM EDT [facility] pCO2, Arterial 37 35 - 45 mm Hg 10/27/2024 12:46 PM EDT [facility] pO2, Arterial 182(H) 80 - 100 mm Hg 10/27/2024 12:46 PM EDT [facility] HCO3, Arterial 21(L) 22 - 26 mmol/L 10/27/2024 12:46 PM EDT [facility] CO2 Content,Arteri al 22(L) 23 - 27 mmol/L 10/27/2024 12:46 PM EDT [facility] Base Excess, Arterial -4.8(L) -2.0 - 3.0 mmol/L 10/27/2024 12:46 PM EDT [facility] %HBO2, Arterial 96.3 95.0 - 98.0 % 10/27/2024 12:46 PM EDT [facility] Carboxyhemoglo bin, Arterial 1.7 % 10/27/2024 12:46 PM EDT [facility] Comment: CARBOXYHEMOGLOBIN (CO) REFERENCE RANGES: Non-Smokers: <2 % Smokers: <8 % TOXIC: >20 % Methemoglobin, Arterial 1.4 0.0 - 1.5 % 10/27/2024 12:46 PM EDT [facility] Reduced hemoglobin, Arterial 0.6 0.0 - 5.0 % 10/27/2024 12:46 PM EDT [facility] Blood, Arterial 10/27/2024 1 2:35 PM EDT 10/27/2024 12:42 PM EDT Narrative [facility] - 10/27/2024 12:46 PM EDT Please obtain post SBT us Shay Sifuentes MD LAB BLOOD ORDERABLES Final Resu lt [facility] [address] [place] [address], [facility] * (ABNORMAL) TEG-Bypass/ECMO/Liver HN (Factor function, Platelet/Fibrin Clot Strength w/Clot Breakdown, Heparinase In All Channels) (10/27/2024 12:07 PM EDT) [facility] Signature Citrated Kaolin Reaction Time (TEGECMOLIVER) 7.9 4.6 - 9.1 minutes 10/27/2024 1:24 PM EDT [facility] Citrated Kaolin W/Heparinase Reaction Time (TEGECMOLIVER) 8.3 4.3 - 8.3 minutes 10/27/2024 1:24 PM EDT [facility] Citrated Kaolin Maximum Amplitude (TEGECMOLIVER) 52.0 52.0 - 69.0 mm 10/27/2024 1:24 PM EDT [facility] Citrated Functional Fibrinogen W/Heparinase Maximum Amplitude(TEGEC MOLIVER) 20.1 15.0 - 34.0 mm 10/27/2024 1:24 PM EDT [facility] Citrated Rapid Teg W/Heparinase Maximum Amplitude (TEGECMOLIVER) 49.4(L) 53.0 - 69.0 mm 10/27/2024 1:24 PM EDT [facility] Citrated Kaolin w/Heparinase Percent Lysis (TEGECMOLIVER) 0.0 0.0 - 3.2 % 10/27/2024 1:24 PM EDT [facility] Whole Blood (Citrate) 10/27/2024 12:07 PM EDT 10/27/2024 12:09 PM EDT Kemar Sahni MD LAB BLOOD ORDERABLES Final Result Performing Organization Address [facility]/ZIP Co de Phone Number [facility] [address] [facility]. [address] * (ABNORMAL) POC Glucose Monitoring Device (10/27/2024 12:01 PM EDT) POC Glucose Monitoring Device 121(H) 70 - 100 mg/dL 10/27/2024 12:02 PM EDT [facility] Blood 10/27/2024 12:0 1 PM EDT 10/27/2024 12:01 PM EDT Harvey Domínguez III, MD POINT OF CARE TEST ORDERABLES Final Result [facility] [address] * (ABNORMAL) POC Glucose Monitoring Device (10/27/2024 10:59 AM EDT) POC Glucose Monitoring Device 126(H) 70 - 100 mg/dL 10/27/2024 11:10 AM EDT [facility] Blood 10/27/2024 10:5 9 AM EDT 10/27/2024 11:10 AM EDT Harvey Domínguez III, MD POINT OF CARE TEST ORDERABLES Final Result Performing Organization Address [facility] Co de Phone Number [facility] [address] * ECG 12 lead (MUSE) (10/27/2024 10:17 AM EDT) 10/27/2024 10:1 7 AM EDT Narrative MUSE - 10/27/2024 2:51 PM EDT Ventricular Rate: 91 BPM Atrial Rate: 91 BPM P-R Interval: 168 ms QRS Duration: 90 ms QT: 274 ms QTc: 337 ms P [place]: 60 degrees R [place]: -30 degrees T [place]: -15 degrees Diagnosis Line: NORMAL SINUS RHYTHM ^ LEFT AXIS DEVIATION, LEFT ANTERIOR HEMIBLOCK ^ NONSPECIFIC T WAVE CHANGE ^ ABNORMAL ECG ^ ^ Confirmed by MD ROLLY, [facility] ([id number]) on 10/27/2024 2:51:52 PM Shay Sifuentes MD ECG ORDERABLES Final Result Performing Organization Address [facility] Co de Phone Number MUSE * (ABNORMAL) POC Glucose Monitoring Device (10/27/2024 10:00 AM EDT) [facility] POC Glucose Monitoring Device 121(H) 70 - 100 mg/dL 10/27/2024 10:01 AM EDT [facility] Blood 10/27/2024 10:0 0 AM EDT 10/27/2024 10:01 AM EDT Harvey Domínguez III, MD POINT OF CARE TEST ORDERABLES Final Result Performing Organization Address City/[facility] Co de Phone Number [facility] [address] [facility] [place] [address], [facility] * US Renal Transplant (10/27/2024 9:51 AM [...] US ORDERABLES Final Result * US Duplex [id number] Comp (10/27/2024 9:51 AM EDT) Anatomical Region [...] EXAM: US ABDOMEN LIMITED EXAM: US DUPLEX [id number] COMPLETE INDICATION: Post-op liver transplant COMPARISON: None [...] absent.. Pancreas: Obscured by overlying bowel gas. Stebbins right kidney: 12.5 cm in length. Normal [...] EXAM: US ABDOMEN LIMITED EXAM: US DUPLEX [id number] COMPLETE INDICATION: Post-op liver transplant COMPARISON: None [...] absent.. Pancreas: Obscured by overlying bowel gas. Stebbins right kidney: 12.5 cm in length. Normal [...] 10:38 AM EDT us Sveta Judge MD [facility] US ORDERABLES Final Result * US Abdomen [...] EXAM: US ABDOMEN LIMITED EXAM: US DUPLEX [id number] COMPLETE INDICATION: Post-op liver transplant COMPARISON: None [...] absent.. Pancreas: Obscured by overlying bowel gas. Stebbins right kidney: 12.5 cm in length. Normal [...] EXAM: US ABDOMEN LIMITED EXAM: US DUPLEX [id number] COMPLETE INDICATION: Post-op liver transplant COMPARISON: None [...] absent.. Pancreas: Obscured by overlying bowel gas. Stebbins right kidney: 12.5 cm in length. Normal [...] - 100 mg/dL 10/27/2024 9:06 AM EDT [facility] Blood 10/27/2024 9:05 AM EDT 10/27/2024 9:06 AM EDT us Harvey Domínguez III, MD POINT OF CARE TEST ORDERABLES Final Result [facility] [address] [place] [address], [facility] * X-ray Portable Chest (10/27/2024 8:58 AM [...] - 15.1 seconds 10/27/2024 8:35 AM EDT [facility] INR 1.2(H) 0.9 - 1.1 10/27/2024 8:35 AM EDT [facility] Comment: RECOMMENDED THERAPEUTIC RANGES USING INR : Stable oral anticoagulant therapy: 2.0 - 3.0 Mechanical prosthetic heart valve: 2.5 - 3.5 Recurrent acute myocardial infarction: 2.5 - 3.5 Plasma 10/27/2024 8:16 AM EDT 10/27/2024 8:20 AM EDT John Moreno MD LAB BLOOD ORDERABLES Final R esult Performing Organization Address City/[facility]/ZIP Co de Phone Number [facility] [address] * Magnesium (10/27/2024 8:00 AM EDT) Pathologist [facility] Magnesium 1.8 1.5 - 2.5 mg/dL 10/27/2024 10:50 AM EDT [facility] Plasma 10/27/2024 8:00 AM EDT 10/27/2024 10:31 AM EDT Kemar Sahni MD LAB BLOOD ORDERABLES Final Result [facility] [address] * (ABNORMAL) Renal Function Panel w/EGFR (10/27/2024 8:00 AM EDT) Sodium 142 133 - 146 mmol/L 10/27/2024 10:18 AM EDT [facility] Potassium 3.0(L) 3.5 - 5.3 mmol/L 10/27/2024 10:18 AM EDT [facility] Chloride 109 98 - 110 mmol/L 10/27/2024 10:18 AM EDT [facility] CO2 21 21 - 33 mmol/L 10/27/2024 10:18 AM EDT [facility] Anion Gap 12 3 - 16 mmol/L 10/27/2024 10:18 AM EDT [facility] BUN 59(H) 7 - 25 mg/dL 10/27/2024 10:18 AM EDT [facility] Creatinine 2.54(H) 0.60 - 1.30 mg/dL 10/27/2024 10:18 AM EDT [facility] Glucose 111(H) 70 - 100 mg/dL 10/27/2024 10:18 AM EDT [facility] Calcium 9.1 8.6 - 10.3 mg/dL 10/27/2024 10:18 AM EDT [facility] Phosphorus 5.5(H) 2.1 - 4.7 mg/dL 10/27/2024 10:18 AM EDT [facility] Albumin 3.0(L) 3.5 - 5.7 g/dL 10/27/2024 10:18 AM EDT [facility] Osmolality, Calculated 311(H) 278 - 305 mOsm/kg 10/27/2024 10:18 AM EDT [facility] EGFR 32 10/27/2024 10:18 AM T [facility] Comment:As of 2021, the estimated GFR [...] Sahni MD LAB BLOOD ORDERABLES Final Result [facility] [address] [place] [address], [facility] * (ABNORMAL) Hepatic Function Panel, STAT (10/27/2024 8:00 AM EDT) Total Bilirubin 1.3 0.0 - 1.5 mg/dL 10/27/2024 8:51 AM EDT [facility] Bilirubin, Direct 0.93(H) 0.00 - 0.40 mg/dL 10/27/2024 8:51 AM EDT [facility] AST 88(H) 13 - 39 U/L 10/27/2024 8:51 AM EDT [facility] ALT 149(H) 7 - 52 U/L 10/27/2024 8:51 AM EDT [facility] Alkaline Phosphatase 26(L) 36 - 125 U/L 10/27/2024 8:51 AM EDT [facility] Total Protein 4.0(L) 6.4 - 8.9 g/dL 10/27/2024 8:51 AM EDT [facility] Albumin 3.0(L) 3.5 - 5.7 g/dL 10/27/2024 8:51 AM EDT [facility] Bilirubin, Indirect 0.37 0.00 - 1.10 mg/dL 10/27/2024 8:51 AM EDT [facility] Plasma 10/27/2024 8:00 AM EDT 10/27/2024 8:20 AM EDT us Harvey Domínguez III, MD LAB BLOOD ORDERABLE S Final Result [facility] [address] [place] [address], [facility] * (ABNORMAL) Lactic Acid, STAT (10/27/2024 8:00 AM EDT) Lactate 0.4(L) 0.5 - 2.2 mmol/L 10/27/2024 8:43 AM EDT [facility] Plasma 10/27/2024 8:00 AM EDT 10/27/2024 8:20 AM EDT us Harvey Domínguez III, MD LAB BLOOD ORDERABLE S Final Result [facility] [address] [place] [address], [facility] * (ABNORMAL) Blood Gas, Arterial, STAT (10/27/2024 8:00 AM EDT) O2 Sat, Arterial 100 10/27/2024 8:23 AM EDT [facility] pH, Arterial 7.36 7.35 - 7.45 10/27/2024 8:23 AM EDT [facility] pCO2, Arterial 37 35 - 45 mm Hg 10/27/2024 8:23 AM EDT [facility] pO2, Arterial 245(H) 80 - 100 mm Hg 10/27/2024 8:23 AM EDT [facility] HCO3, Arterial 22 22 - 26 mmol/L 10/27/2024 8:23 AM EDT [facility] CO2 Content,Arteri al 22(L) 23 - 27 mmol/L 10/27/2024 8:23 AM EDT [facility] Base Excess, Arterial -4.2(L) -2.0 - 3.0 mmol/L 10/27/2024 8:23 AM EDT [facility] %HBO2, Arterial 96.5 95.0 - 98.0 % 10/27/2024 8:23 AM EDT [facility] Carboxyhemoglo bin, Arterial 2.2 % 10/27/2024 8:23 AM EDT [facility] Comment: CARBOXYHEMOGLOBIN (CO) REFERENCE RANGES: Non-Smokers: <2 % Smokers: <8 % TOXIC: >20 % Methemoglobin, Arterial 1.2 0.0 - 1.5 % 10/27/2024 8:23 AM EDT [facility] Reduced hemoglobin, Arterial 0.0 0.0 - 5.0 % 10/27/2024 8:23 AM EDT [facility] Blood, Arterial 10/27/2024 8 :00 AM EDT 10/27/2024 8:19 AM EDT Narrative [facility] - 10/27/2024 8:23 AM EDT Specimen is beyond 15 minutes from time of collection. Results may be compromised. Review results critically. Kemar Sahni MD LAB BLOOD ORDERABLES Final Result Performing Organization Address City/[facility]/ZIP Co de Phone Number [facility] [address] * (ABNORMAL) TEG-Bypass/ECMO/Liver HN (Factor function, Platelet/Fibrin Clot Strength w/Clot Breakdown, Heparinase In All Channels) (10/27/2024 8:00 AM EDT) [facility] Citrated Kaolin Reaction Time (TEGECMOLIVER) 7.8 4.6 - 9.1 minutes 10/27/2024 9:39 AM EDT [facility] Citrated Kaolin W/Heparinase Reaction Time (TEGECMOLIVER) 8.0 4.3 - 8.3 minutes 10/27/2024 9:39 AM EDT [facility] Citrated Kaolin Maximum Amplitude (TEGECMOLIVER) 52.7 52.0 - 69.0 mm 10/27/2024 9:39 AM EDT [facility] Citrated Functional Fibrinogen W/Heparinase Maximum Amplitude(TEGEC MOLIVER) 19.0 15.0 - 34.0 mm 10/27/2024 9:39 AM EDT [facility] Citrated Rapid Teg W/Heparinase Maximum Amplitude (TEGECMOLIVER) 49.5(L) 53.0 - 69.0 mm 10/27/2024 9:39 AM EDT [facility] Citrated Kaolin w/Heparinase Percent Lysis (TEGECMOLIVER) 0.0 0.0 - 3.2 % 10/27/2024 9:39 AM EDT [facility] Whole Blood (Citrate) 10/27/2024 8:00 AM EDT 10/27/2024 8:19 AM EDT Kemar Sahni MD LAB BLOOD ORDERABLES Final Result [facility] [address] * (ABNORMAL) Katie-Watkins virus VCA IgG Antibody (10/27/2024 8:00 AM EDT) EBV VCA IgG Positive( A) Negative 10/27/2024 11:30 AM EDT [facility] Comment:Presence of detectab le VCA IgG antibodies. 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 EBV IGG NUM 314.00(H) 0.00 - 17.99 U/mL 10/27/2024 11:30 AM EDT [facility] Serum 10/27/2024 8:00 AM EDT 10/27/2024 8:20 AM EDT Kemar Sahni MD LAB BLOOD ORDERABLES Final Result Performing Organization Address [facility] Co de Phone Number [facility] [address] [facility]. [address] * Hemoglobin A1c (10/27/2024 8:00 AM EDT) Hemoglobin A1C 5.0 4.0 - 5.6 % 10/27/2024 11:12 AM EDT [facility] Comment: Hemoglobin A1c Interpretation Guidelines: Normal: [...] AM EDT 10/27/2024 8:20 AM EDT Kemar Sahin MD LAB BLOOD ORDERABLES Final Result Performing Organization Address [facility] Co de Phone Number [facility] [address] * (ABNORMAL) POC Glucose Monitoring Device (10/27/2024 7:59 AM EDT) POC Glucose Monitoring Device 113(H) 70 - 100 mg/dL 10/27/2024 7:59 AM EDT [facility] Blood 10/27/2024 7:59 AM EDT 10/27/2024 7:59 AM EDT us Harvey Domínguez III, MD POINT OF CARE TEST ORDERABLES Final Result [facility] [address] * X-ray Abdomen AP view (10/27/2024 [...] 1 Units (10/27/2024 6:16 AM EDT) [facility] Signature Product Code U7495T05 HCLL Unit Number [id number] HCLL Dispense Status Presumed Transfused_PT HCLL Blood Expiration Date HCLL Coding System [id number] HCLL Product Code J4444V14 HCLL Unit Number [id number] HCLL Dispense Status Presumed Transfused_PT HCLL Blood Expiration Date [id number] HCLL Coding System HHDA365 HCLL Blood Bank Product John Pina MD BLOOD BANK PRODUCT ORDERABLES F inal Result HCLL * Prepare Platelets, leukoreduced, 1 Units (10/27/2024 6:16 AM EDT) Product Code X0844L41 HCLL Unit Number [id number] HCLL Dispense Status Presumed Transfused_PT HCLL Blood Expiration Date [id number] HCLL Coding System [id number] HCLL Blood Bank Product Eber Quinones MD BLOOD BANK PRODUCT ORDER PAL Final Result Performing Organization Address [facility] de Phone Number HCLL * Prepare Cryoprecipitate, 1 Units (10/27/2024 6:16 AM EDT) Product Code D4118F06 HCLL Unit Number [id number] HCLL Dispense Status Presumed Transfused_PT HCLL Blood Expiration Date HCLL Coding System CMHU224 HCLL Product Code Y3068H27 HCLL Unit Number [id number] HCLL Dispense Status Presumed Transfused_PT HCLL Blood Expiration Date [id number] HCLL Coding System HUNR110 HCLL Blood Bank Product Eber Quinones MD BLOOD BANK PRODUCT ORDER PAL Final Result Performing Organization Address [facility] de Phone Number HCLL * Prepare Fresh Frozen Plasma, 10 Units (10/27/2024 6:16 AM EDT) Product Code A2093B26 HCLL Unit Number [id number] HCLL Dispense Status Presumed Transfused_PT HCLL Blood Expiration Date HCLL Coding System JNDR575 HCLL Product Code B2940D90 HCLL Unit Number [id number] HCLL Dispense Status Presumed Transfused_PT HCLL Blood Expiration Date 872741387876 HCLL Coding System ADQN619 HCLL Product Code J0734X71 HCLL Unit Number [id number] HCLL Dispense Status Presumed Transfused_PT HCLL Blood Expiration Date 320466057414 HCLL Coding System KYDN709 HCLL Product Code M9506Y68 HCLL Unit Number [id number] HCLL Dispense Status Presumed Transfused_PT HCLL Blood Expiration Date 758952667033 HCLL Coding System BVHI267 HCLL Product Code K1971F74 HCLL Unit Number [id number] HCLL Dispense Status Released from Crossmatch_RE HCLL Blood Expiration Date 957422869699 HCLL Coding System UWLW498 HCLL Product Code M1121Q61 HCLL Unit Number [id number] HCLL Dispense Status Released from Crossmatch_RE HCLL Blood Expiration Date HCLL Coding System YXEJ447 HCLL Product Code K5374A24 HCLL Unit Number [id number] HCLL Dispense Status Presumed Transfused_PT HCLL Blood Expiration Date HCLL Coding System OGSK314 HCLL Product Code K9349A33 HCLL Unit Number [id number] HCLL Dispense Status Presumed Transfused_PT HCLL Blood Expiration Date 374949069079 HCLL Coding System UASP630 HCLL Product Code D3830F06 HCLL Unit Number [id number] HCLL Dispense Status Presumed Transfused_PT HCLL Blood Expiration Date 436965946181 HCLL Coding System ZZWD152 HCLL Product Code V1960X48 HCLL Unit Number [id number] HCLL Dispense Status Presumed Transfused_PT HCLL Blood Expiration Date 918297718536 HCLL Coding System XXPJ227 HCLL Blood Bank Product us Leandra Og MD BLOOD BANK PRODUCT ORD ERABLES Final Result HCLL * Prepare Platelets, leukoreduced, 1 Units (10/27/2024 6:16 AM EDT) Product Code E7976I85 HCLL Unit Number [id number] HCLL Dispense Status Presumed Transfused_PT HCLL Blood Expiration Date 806939478688 HCLL Coding System GGZE748 HCLL Blood Bank Product Ben Blake MD BLOOD BANK PRODUCT ORDERABLES Final Result HCLL * Prepare Fresh Frozen Plasma (10/27/2024 6:15 AM EDT) Product Code Z7772J33 HCLL Unit Number [id number] HCLL Dispense Status Presumed Transfused_PT HCLL Blood Expiration Date HCLL Coding System PMGJ877 HCLL Product Code W9118Y48 HCLL Unit Number [id number] HCLL Dispense Status Released from Crossmatch_RE HCLL Blood Expiration Date HCLL Coding System SGAE918 HCLL Product Code X1446O66 HCLL Unit Number [id number] HCLL Dispense Status Presumed Transfused_PT HCLL Blood Expiration Date HCLL Coding System JHXC031 HCLL Product Code I0669J41 HCLL Unit Number [id number] HCLL Dispense Status Presumed Transfused_PT HCLL Blood Expiration Date HCLL Coding System RLSH558 HCLL Product Code L5952H54 HCLL Unit Number [id number] HCLL Dispense Status Released from Crossmatch_RE HCLL Blood Expiration Date HCLL Coding System EPDW791 HCLL Attending Provider Unknown BLOOD BANK PRODUCT OR DERABLES Final Result HCLL * Prepare RBC, leukoreduced (10/27/2024 6:15 AM EDT) Product Code H2393N08 HCLL Unit Number [id number] HCLL Dispense Status Presumed Transfused_PT HCLL Blood Expiration Date 746959294499 HCLL Coding System GPHR232 HCLL Product Code T2749B81 HCLL Unit Number [id number] HCLL Dispense Status Released from Crossmatch_RE HCLL Blood Expiration Date HCLL Coding System RTSP890 HCLL Product Code F2560N39 HCLL Unit Number [id number] HCLL Dispense Status Released from Crossmatch_RE HCLL Blood Expiration Date 742972553207 HCLL Coding System UIZC841 HCLL Product Code T1682I32 HCLL Unit Number [id number] HCLL Dispense Status Released from Crossmatch_RE HCLL Blood Expiration Date 896963488120 HCLL Coding System QMCI852 HCLL Product Code M0427B93 HCLL Unit Number [id number] HCLL Dispense Status Released from Crossmatch_RE HCLL Blood Expiration Date 889973671328 HCLL Coding System XFJR120 HCLL us Attending Provider Unknown BLOOD BANK PRODUCT OR DERABLES Final Result HCLL * Prepare RBC, leukoreduced, 10 Units (10/27/2024 6:15 AM EDT) Product Code P5464R54 HCLL Unit Number [id number] HCLL Dispense Status Presumed Transfused_PT HCLL Blood Expiration Date HCLL Coding System PYLA710 HCLL Product Code H9454U77 HCLL Unit Number [id number] HCLL Dispense Status Presumed Transfused_PT HCLL Blood Expiration Date 155495219906 HCLL Coding System XJGP783 HCLL Product Code M1806R83 HCLL Unit Number [id number] HCLL Dispense Status Presumed Transfused_PT HCLL Blood Expiration Date HCLL Coding System EYNM492 HCLL Product Code R9455Q35 HCLL Unit Number [id number] HCLL Dispense Status Presumed Transfused_PT HCLL Blood Expiration Date HCLL Coding System SBPO987 HCLL Product Code D4567U62 HCLL Unit Number [id number] HCLL Dispense Status Presumed Transfused_PT HCLL Blood Expiration Date HCLL Coding System XIXD910 HCLL Product Code Y4351Q71 HCLL Unit Number [id number] HCLL Dispense Status Presumed Transfused_PT HCLL Blood Expiration Date HCLL Coding System BRJJ253 HCLL Product Code K0061N45 HCLL Unit Number [id number] HCLL Dispense Status Presumed Transfused_PT HCLL Blood Expiration Date HCLL Coding System NCRS790 HCLL Product Code V9329K95 HCLL Unit Number [id number] HCLL Dispense Status Presumed Transfused_PT HCLL Blood Expiration Date HCLL Coding System BFUG702 HCLL Product Code P2422K64 HCLL Unit Number [id number] HCLL Dispense Status Presumed Transfused_PT HCLL Blood Expiration Date HCLL Coding System IKVN798 HCLL Product Code M5760N94 HCLL Unit Number [id number] HCLL Dispense Status Presumed Transfused_PT HCLL Blood Expiration Date 471198535352 HCLL Coding System ZIDM206 HCLL Blood Bank Product Leandra Og MD BLOOD BANK PRODUCT ORD ERABLES Final Result HCLL * Transfuse Platelets (10/27/2024 6:09 AM EDT) Ben Blake MD NURSING TREATMENT ORDERABLES - BLOOD ADMIN Final Result * (ABNORMAL) Arterial Blood Gas Panel (10/27/2024 6:09 AM EDT) O2Sat (ABGP) 100 10/27/2024 6:17 AM EDT [facility] pH (ABGP) 7.30(L) 7.35 - 7.45 10/27/2024 6:17 AM EDT [facility] PCO2 (ABGP) 41 35 - 45 mm Hg 10/27/2024 6:17 AM EDT [facility] PO2 (ABGP) 192(H) 80 - 100 mm Hg 10/27/2024 6:17 AM EDT [facility] HCO3 (ABGP) 21(L) 22 - 26 mmol/L 10/27/2024 6:17 AM EDT [facility] CO2 Content (ABGP) 22(L) 23 - 27 mmol/L 10/27/2024 6:17 AM T [facility] Base Excess (ABGP) -5.7(L) -2.0 - 3.0 mmol/L 10/27/2024 6:17 AM T [facility] Sodium (ABGP) 138 136 - 146 mEq/L 10/27/2024 6:17 AM [facility] Potassium (ABGP) 3.3(L) 3.5 - 5.0 mEq/L 10/27/2024 6:17 AM [facility] Comment:In the event of in-v itro hemolysis, potassium results may be falsely elevated. Always interpret lab results in conjunction with clinical findings. If hemolysis is suspected, a serum sample may be collected for repeat assessment of potassium. Calcium, Free (ABGP) 5.28 4.50 - 5.30 mg/dL 10/27/2024 6:17 AM [facility] Glucose (ABGP) 112(H) 70 - 100 mg/dL 10/27/2024 6:17 AM [facility] Comment:There is interferenc e with whole blood glucose results on this method when Hematocrit is <25% or >60%. HCT (ABGP) 20.0(L) 40.0 - 52.0 % 10/27/2024 6:17 AM [facility] HGB (ABGP) 6.5(L) 14.0 - 18.0 g/dL 10/27/2024 6:17 AM [facility] %HBO2 (ABGP) 96.8 95.0 - 98.0 % 10/27/2024 6:17 AM [facility] Carboxyhgb (ABGP) 2.1 % 025 6:17 AM [facility] Comment: CARBOXYHEMOGLOBIN (CO) REFERENCE RANGES: Non-Smokers: <2 % Smokers: <8 % TOXIC: >20 % Methemoglobin (ABGP) 1.0 0.0 - 1.5 % 10/27/2024 6:17 AM [facility] Reduced Hemoglobin (ABGP) 0.2 0.0 - 5.0 % 10/27/2024 6:17 AM [facility] Lactic Acid (ABGP) 0.4(L) 0.5 - 1.6 mmol/L 10/27/2024 6:17 AM EDT [facility] Blood, Arterial 10/27/2024 6 :09 AM EDT 10/27/2024 6:14 AM EDT us Ben Blake MD LAB BLOOD ORDERABLES Final Re sult Performing Organization Address [facility]/ZIP Co de Phone Number [facility] [address] [facility]. [address] * Transfuse Fresh Frozen Plasma (10/27/2024 [...] Glucose Monitoring Device (10/27/2024 4:46 AM EDT) [facility] POC Glucose Monitoring Device 124(H) 70 - 100 mg/dL 10/27/2024 4:47 AM EDT [facility] Blood 10/27/2024 4:46 AM EDT 10/27/2024 4:47 AM EDT Harvey Domínguez III, MD POINT OF CARE TEST ORDERABLES Final Result Performing Organization Address [facility]/ZIP Co de Phone Number [facility] [address] [facility]. [address] * Transfuse Platelets (10/27/2024 4:24 AM [...] O2Sat (ABGP) 100 10/27/2024 3:21 AM EDT [facility] pH (ABGP) 7.32(L) 7.35 - 7.45 10/27/2024 3:21 AM EDT [facility] PCO2 (ABGP) 38 35 - 45 mm Hg 10/27/2024 3:21 AM EDT [facility] PO2 (ABGP) 176(H) 80 - 100 mm Hg 10/27/2024 3:21 AM EDT [facility] HCO3 (ABGP) 20(L) 22 - 26 mmol/L 10/27/2024 3:21 AM EDT [facility] CO2 Content (ABGP) 21(L) 23 - 27 mmol/L 10/27/2024 3:21 AM EDT [facility] Base Excess (ABGP) -6.0(L) -2.0 - 3.0 mmol/L 10/27/2024 3:21 AM EDT [facility] Sodium (ABGP) 138 136 - 146 mEq/L 10/27/2024 3:21 AM EDT [facility] Potassium (ABGP) 3.0(L) 3.5 - 5.0 mEq/L 10/27/2024 3:21 AM EDT [facility] Comment:In the event of in-v itro hemolysis, potassium results may be falsely elevated. Always interpret lab results in conjunction with clinical findings. If hemolysis is suspected, a serum sample may be collected for repeat assessment of potassium. Calcium, Free (ABGP) 5.28 4.50 - 5.30 mg/dL 10/27/2024 3:21 AM EDT [facility] Glucose (ABGP) 108(H) 70 - 100 mg/dL 10/27/2024 3:21 AM EDT [facility] Comment:There is interferenc e with whole blood glucose results on this method when Hematocrit is <25% or >60%. HCT (ABGP) 22.0(L) 40.0 - 52.0 % 10/27/2024 3:21 AM EDT [facility] HGB (ABGP) 7.3(L) 14.0 - 18.0 g/dL 10/27/2024 3:21 AM EDT [facility] %HBO2 (ABGP) 97.3 95.0 - 98.0 % 10/27/2024 3:21 AM EDT [facility] Carboxyhgb (ABGP) 1.9 % 025 3:21 AM EDT [facility] Comment: CARBOXYHEMOGLOBIN (CO) REFERENCE RANGES: Non-Smokers: <2 % Smokers: <8 % TOXIC: >20 % Methemoglobin (ABGP) 0.8 0.0 - 1.5 % 10/27/2024 3:21 AM EDT [facility] Reduced Hemoglobin (ABGP) 0.0 0.0 - 5.0 % 10/27/2024 3:21 AM EDT [facility] Lactic Acid (ABGP) 0.3(L) 0.5 - 1.6 mmol/L 10/27/2024 3:21 AM EDT [facility] Blood, Arterial 10/27/2024 3 :07 AM EDT 10/27/2024 3:14 AM EDT Ben Blake MD LAB BLOOD ORDERABLES Final Re sult Performing Organization Address City/State/[facility] Co de Phone Number [facility] [address] * Surgical Pathology Exam (10/27/2024 2:38 AM EDT) Tissue LEFT KIDNEY STRUCTURE / Unknown 10/27/2024 2:38 AM EDT Narrative [facility] - 10/27/2024 12:00 AM EDT CASE: [id number] PATIENT: BLAIR GILBERT Clinical History: Transplant kidney with bile duct reconstruction Pre-Operative Diagnosis: Acute kidney injury superimposed on CKD Post-Operative Diagnosis: None Given Specimen(s) Submitted: A. baseline renal biopsy ; B. right lobe liver biopsy; C. left lobe liver biopsy CPT Code(s): 39016 X 1; 89568 X 2; 50911 X 4 Additional Information: FINAL DIAGNOSIS: A. [...] parenchyma, which is entirely submitted in cassette [id number] A1. (NAA Mckeon/rr) B. Received in formalin, [...] submitted between blue biopsy sponges in cassette [id number] C1-C2. (NAA Mckeon/ns) Microscopic Description: I, the attending pathologist, have personally reviewed all prosector/resident work and pathology slides to determine final diagnosis. Control Materials Reacted Appropriately. Final Diagnosis performed by CLARE FLAL MD Pathologist Electronically signed 10/31/2024 01:07:09 PM The Pathologist signing this report is located at [facility], [address] [place] [address], [id number], , CLIA ID: [id number] ADDENDUM: A. Kidney, allograft, baseline, wedge biopsy: [...] Pathologist signing this report is located at [facility], [address] [place] [address], [id number], , CLIA ID: [id number] Kemar Sahni MD PATHOLOGY/CYTOLOGY ORDERABL ES Edited Result - Final Performing Organization Address [facility]/ZIP Co de Phone Number [facility] * Anaerobic culture (10/27/2024 2:15 AM EDT) Culture Result No Anaerobes Isolated in 5 Days [facility] Fluid SPECIMEN FROM KIDNEY / Unknown 10/27/2024 2:15 AM EDT 10/27/2024 4:24 AM EDT Narrative [facility] - 10/31/2024 11:43 AM EDT 1) perfusate Harvey Domínguez III, MD MICROBIOLOGY - GENE RAL ORDERABLES Final Result Performing Organization Address [facility]/ZIP Co de Phone Number [address] * Fungus culture (10/27/2024 2:15 AM EDT) Culture Result No Fungus Isolated At 4 Weeks [facility] Fluid SPECIMEN FROM KIDNEY / Unknown 10/27/2024 2:15 AM EDT 10/27/2024 4:24 AM EDT Narrative [facility] - 11/24/2024 7:52 AM EDT 1) perfusate Harvey Domínguez III, MD MICROBIOLOGY - GENE RAL ORDERABLES Final Result Performing Organization Address [facility] de Phone Number [facility] [address] [facility]. [address] * Routine Culture plus Stain (10/27/2024 2:15 AM EDT) Gram Stain Result No Polymorphonuclear Leukocytes Seen [facility] Gram Stain Result No Organisms Seen; [facility] Culture Result No Growth After 3 Days [facility] Fluid SPECIMEN FROM KIDNEY / Unknown 10/27/2024 2:15 AM EDT 10/27/2024 4:24 AM EDT Narrative [facility] - 10/30/2024 9:26 AM EDT 1) perfusate Harvey Domínguez III, MD MICROBIOLOGY - GENE RAL ORDERABLES Final Result Performing Organization Address [facility] de Phone Number [facility] [address] [facility]. [address] * Transfuse Platelets Transfusion Rate: Per dept routine (10/27/2024 1:52 AM EDT) John Pina MD NURSING TREATMENT ORDERABLES - BLOOD ADMIN Final Result Performing Organization Address [facility] de Phone Number EXTERNAL * Transfuse Platelets Transfusion Rate: Per dept routine, 1 Units (10/27/2024 1:52 AM EDT) John Pina MD NURSING TREATMENT ORDERABLES - BLOOD ADMIN Final Result Performing Organization Address [facility] de Phone Number EXTERNAL * (ABNORMAL) TEG-Standard Global Hemostasis (Rapid TEG with Heparin Effect, Contains a Baseline TEG) (10/27/2024 1:51 AM EDT) Citrated Kaolin Reaction Time (TEGHEPARINASE) 10.6(H) 4.6 - 9.1 minutes 10/27/2024 2:44 AM EDT [facility] Citrated Rapid Teg Maximum Amplitude (TEGHEPARINASE) 42.3(L) 52.0 - 70.0 mm 10/27/2024 2:44 AM EDT [facility] Citrated Functional Fibrinogen Maximum Amplitude (TEGHEPARINASE) 15.0 15.0 - 32.0 mm 10/27/2024 2:44 AM EDT [facility] Citrated Kaolin W/Heparinase Reaction Time (TEGHEPARINASE) 10.5(H) 4.3 - 8.3 minutes 10/27/2024 2:44 AM EDT [facility] Citrated Kaolin K-Time (TEGHEPARINASE) 2.9(A) 0.8 - 2.1 minutes 10/27/2024 2:44 AM EDT [facility] Citrated Kaolin Angle (TEGHEPARINASE) 60.4(A) 63.0 - 78.0 degrees 10/27/2024 2:44 AM EDT [facility] Citrated Kaolin Maximum Amplitude (TEGHEPARINASE) 42.9(L) 52.0 - 69.0 mm 10/27/2024 2:44 AM EDT [facility] Citrated Functional Fibrinogen- Fibrinogen Level (TEGHEPARINASE) 273.7(L) 278.0 - 581.0 mg/dL 10/27/2024 2:44 AM EDT [facility] Whole Blood (Citrate) 10/27/2024 1:51 AM EDT 10/27/2024 2:03 AM EDT us John Pina MD LAB BLOOD ORDERABLES Final Resu lt [facility] [address] [place] [address], [facility] * (ABNORMAL) POC Glucose Monitoring Device (10/27/2024 1:50 AM EDT) Pathologist [facility] POC Glucose Monitoring Device 121(H) 70 - 100 mg/dL 10/27/2024 1:51 AM EDT [facility] Blood 10/27/2024 1:50 AM EDT 10/27/2024 1:51 AM EDT us Harvey Domínguez III, MD POINT OF CARE TEST ORDERABLES Final Result Performing Organization Address [facility] de Phone Number [facility] [address] [facility]. [address] * Transfuse Cryoprecipitate Transfusion Rate: Per dept routine (10/27/2024 1:25 AM EDT) us John Pina MD NURSING TREATMENT ORDERABLES - BLOOD ADMIN Final Result Performing Organization Address [facility] de Phone Number EXTERNAL * Transfuse Cryoprecipitate Transfusion Rate: Per dept routine, 1 Units (10/27/2024 1:25 AM EDT) us John Pina MD NURSING TREATMENT ORDERABLES - BLOOD ADMIN Final Result Performing Organization Address [facility] de Phone Number EXTERNAL * (ABNORMAL) POC Glucose Monitoring Device (10/27/2024 1:21 AM EDT) [facility] POC Glucose Monitoring Device 123(H) 70 - 100 mg/dL 10/27/2024 1:22 AM EDT [facility] Blood 10/27/2024 1:21 AM EDT 10/27/2024 1:21 AM EDT us Harvey Domínguez III, MD POINT OF CARE TEST ORDERABLES Final Result Performing Organization Address [facility] de Phone Number [facility] [address] [facility]. [address] * Transfuse Fresh Frozen Plasma Transfusion Rate: Per dept routine (10/27/2024 1:03 AM EDT) us John Pina MD NURSING TREATMENT ORDERABLES - BLOOD ADMIN Final Result Performing Organization Address [facility] de Phone Number EXTERNAL * Transfuse Fresh Frozen Plasma Transfusion Rate: Per dept routine, 1 Units (10/27/2024 1:03 AM EDT) us John Pina MD NURSING TREATMENT ORDERABLES - BLOOD ADMIN Final Result Performing Organization Address [facility]/ZIP Co de Phone Number EXTERNAL * Calcium Free, Serum (10/27/2024 12:13 AM EDT) Free Calcium, Ser 5.20 4.40 - 5.40 mg/dL 10/27/2024 12:37 AM EDT [facility] Comment:Free calcium levels vary inversely with pH by approximately 5% for each 0.1 unit of pH change. Assay results have been normalized to pH = 7.40. Serum 10/27/2024 12:1 3 AM EDT 10/27/2024 12:29 AM EDT Narrative [facility] - 10/27/2024 12:37 AM EDT This test has been developed and its performance characteristics determined by [facility] which is certified under the [...] MD LAB BLOOD ORDERABLES Final Resu lt [facility] [address] [place] [address], [facility] * (ABNORMAL) Blood Gas, Arterial, STAT (10/27/2024 12:13 AM EDT) O2 Sat, Arterial 100 10/27/2024 12:23 AM EDT [facility] FIO2 30 10/27/2024 12:23 AM EDT [facility] pH, Arterial 7.32(L) 7.35 - 7.45 10/27/2024 12:23 AM EDT [facility] pCO2, Arterial 37 35 - 45 mm Hg 10/27/2024 12:23 AM EDT [facility] pO2, Arterial 137(H) 80 - 100 mm Hg 10/27/2024 12:23 AM EDT [facility] HCO3, Arterial 20(L) 22 - 26 mmol/L 10/27/2024 12:23 AM EDT [facility] CO2 Content,Arteri al 20(L) 23 - 27 mmol/L 10/27/2024 12:23 AM EDT [facility] Base Excess, Arterial -6.4(L) -2.0 - 3.0 mmol/L 10/27/2024 12:23 AM EDT [facility] %HBO2, Arterial 96.2 95.0 - 98.0 % 10/27/2024 12:23 AM EDT [facility] Carboxyhemoglo bin, Arterial 1.9 % 10/27/2024 12:23 AM EDT [facility] Comment: CARBOXYHEMOGLOBIN (CO) REFERENCE RANGES: Non-Smokers: <2 % Smokers: <8 % TOXIC: >20 % Methemoglobin, Arterial 1.5 0.0 - 1.5 % 10/27/2024 12:23 AM EDT [facility] Reduced hemoglobin, Arterial 0.4 0.0 - 5.0 % 10/27/2024 12:23 AM EDT [facility] Blood, Arterial 10/27/2024 1 2:13 AM EDT 10/27/2024 12:18 AM EDT us John Pina MD LAB BLOOD ORDERABLES Final Resu lt [facility] [address] [place] [id number], [facility] * (ABNORMAL) TEG-Bypass/ECMO/Liver HN (Factor function, Platelet/Fibrin Clot Strength w/Clot Breakdown, Heparinase In All Channels) (10/27/2024 12:13 AM EDT) [facility] Citrated Kaolin Reaction Time (TEGECMOLIVER) 9.1 4.6 - 9.1 minutes 10/27/2024 1:43 AM EDT [facility] Citrated Kaolin W/Heparinase Reaction Time (TEGECMOLIVER) 9.7(H) 4.3 - 8.3 minutes 10/27/2024 1:43 AM EDT [facility] Citrated Kaolin Maximum Amplitude (TEGECMOLIVER) <40.0(L) 52.0 - 69.0 mm 10/27/2024 1:43 AM EDT [facility] Citrated Functional Fibrinogen W/Heparinase Maximum Amplitude(TEGEC MOLIVER) 11.9(L) 15.0 - 34.0 mm 10/27/2024 1:43 AM EDT [facility] Citrated Rapid Teg W/Heparinase Maximum Amplitude (TEGECMOLIVER) 31.6(L) 53.0 - 69.0 mm 10/27/2024 1:43 AM EDT [facility] Citrated Kaolin w/Heparinase Percent Lysis (TEGECMOLIVER) 0.0 0.0 - 3.2 % 10/27/2024 1:43 AM EDT [facility] Whole Blood (Citrate) 10/27/2024 12:13 AM EDT 10/27/2024 12:18 AM EDT Kemar Sahni MD LAB BLOOD ORDERABLES Final Result [facility] [address] * (ABNORMAL) Lactic Acid (10/27/2024 12:13 AM EDT) Lactate 0.2(L) 0.5 - 2.2 mmol/L 10/27/2024 12:59 AM EDT [facility] Plasma 10/27/2024 12:1 3 AM EDT 10/27/2024 12:31 AM EDT Kemar Sahni MD LAB BLOOD ORDERABLES Final Result [facility] [address] * Magnesium (10/27/2024 12:13 AM EDT) Magnesium 1.8 1.5 - 2.5 mg/dL 10/27/2024 12:52 AM EDT [facility] Plasma 10/27/2024 12:1 3 AM EDT 10/27/2024 12:29 AM EDT Kemar Sahni MD LAB BLOOD ORDERABLES Final Result [facility] [address] [facility] [place] [place] [address], [facility] * (ABNORMAL) Hepatic Function Panel (10/27/2024 12:13 AM EDT) Total Bilirubin 1.6(H) 0.0 - 1.5 mg/dL 10/27/2024 12:52 AM EDT [facility] Bilirubin, Direct 1.17(H) 0.00 - 0.40 mg/dL 10/27/2024 12:52 AM EDT [facility] AST 157(H) 13 - 39 U/L 10/27/2024 12:52 AM EDT [facility] ALT 261(H) 7 - 52 U/L 10/27/2024 12:52 AM EDT [facility] Alkaline Phosphatase 26(L) 36 - 125 U/L 10/27/2024 12:52 AM EDT [facility] Total Protein 3.8(L) 6.4 - 8.9 g/dL 10/27/2024 12:52 AM EDT [facility] Albumin 2.8(L) 3.5 - 5.7 g/dL 10/27/2024 12:52 AM EDT [facility] Bilirubin, Indirect 0.43 0.00 - 1.10 mg/dL 10/27/2024 12:52 AM EDT [facility] Plasma 10/27/2024 12:1 3 AM EDT 10/27/2024 12:29 AM EDT Kemar Sahni MD LAB BLOOD ORDERABLES Final Result [facility] [address] [facility] [place] [address], [facility] * (ABNORMAL) Protime-INR (10/27/2024 12:13 AM EDT) Protime 18.6(H) 12.1 - 15.1 seconds 10/27/2024 12:43 AM EDT [facility] INR 1.5(H) 0.9 - 1.1 10/27/2024 12:43 AM EDT [facility] Comment: RECOMMENDED THERAPEUTIC RANGES USING INR : Stable oral anticoagulant therapy: 2.0 - 3.0 Mechanical prosthetic heart valve: 2.5 - 3.5 Recurrent acute myocardial infarction: 2.5 - 3.5 Plasma 10/27/2024 12:1 3 AM EDT 10/27/2024 12:29 AM EDT Kemar Sahni MD LAB BLOOD ORDERABLES Final Result [facility] [address] [facility] [place] [id number], [facility] * (ABNORMAL) CBC (10/27/2024 12:13 AM EDT) WBC 5.0 3.8 - 10.8 10E3/uL 10/27/2024 12:59 AM EDT [facility] RBC 2.70(L) 4.20 - 5.80 10E6/uL 10/27/2024 12:59 AM EDT [facility] Hemoglobin 8.5(L) 13.2 - 17.1 g/dL 10/27/2024 12:59 AM EDT [facility] Hematocrit 23.9(L) 38.5 - 50.0 % 10/27/2024 12:59 AM EDT [facility] MCV 88.5 80.0 - 100.0 fL 10/27/2024 12:59 AM EDT [facility] MCH 31.5 27.0 - 33.0 pg 10/27/2024 12:59 AM EDT [facility] MCHC 35.6 32.0 - 36.0 g/dL 10/27/2024 12:59 AM EDT [facility] RDW 20.6(H) 11.0 - 15.0 % 10/27/2024 12:59 AM EDT [facility] Platelets 35(L) 140 - 400 10E3/uL 10/27/2024 12:59 AM EDT [facility] Comment: CNV Specimen checked for clots. None detected. MPV 7.6 7.5 - 11.5 fL 10/27/2024 12:59 AM EDT [facility] Whole Blood 10/27/2024 12:1 3 AM EDT 10/27/2024 12:29 AM EDT Kemar Sahni MD LAB BLOOD ORDERABLES Final Result [facility] [address] [place] [address], [facility] * (ABNORMAL) Renal Function Panel w/EGFR (10/27/2024 12:13 AM EDT) Sodium 141 133 - 146 mmol/L 10/27/2024 12:52 AM EDT [facility] Potassium 3.2(L) 3.5 - 5.3 mmol/L 10/27/2024 12:52 AM EDT [facility] Chloride 109 98 - 110 mmol/L 10/27/2024 12:52 AM EDT [facility] CO2 21 21 - 33 mmol/L 10/27/2024 12:52 AM EDT [facility] Anion Gap 11 3 - 16 mmol/L 10/27/2024 12:52 AM EDT [facility] BUN 64(H) 7 - 25 mg/dL 10/27/2024 12:52 AM EDT [facility] Creatinine 2.58(H) 0.60 - 1.30 mg/dL 10/27/2024 12:52 AM EDT [facility] Glucose 126(H) 70 - 100 mg/dL 10/27/2024 12:52 AM EDT [facility] Calcium 8.9 8.6 - 10.3 mg/dL 10/27/2024 12:52 AM EDT [facility] Phosphorus 5.3(H) 2.1 - 4.7 mg/dL 10/27/2024 12:52 AM EDT [facility] Albumin 2.8(L) 3.5 - 5.7 g/dL 10/27/2024 12:52 AM EDT [facility] Osmolality, Calculated 312(H) 278 - 305 mOsm/kg 10/27/2024 12:52 AM EDT [facility] EGFR 31 10/27/2024 12:52 AM EDT [facility] Comment:As of 2021, the estimated GFR [...] BLOOD ORDERABLES Final Result Performing Organization Address [facility] Co de Phone Number [facility] [address] [facility]. [address] * (ABNORMAL) POC Glucose Monitoring Device (10/27/2024 12:08 AM EDT) POC Glucose Monitoring Device 121(H) 70 - 100 mg/dL 10/27/2024 12:08 AM EDT [facility] Blood 10/27/2024 12:0 8 AM EDT 10/27/2024 12:08 AM EDT Harvey Domínguez III, MD POINT OF CARE TEST ORDERABLES Final Result Performing Organization Address [facility]/ZIP Co de Phone Number [facility] [address] * (ABNORMAL) POC Glucose Monitoring Device (10/26/2024 11:15 PM EDT) POC Glucose Monitoring Device 120(H) 70 - 100 mg/dL 10/26/2024 11:15 PM EDT [facility] Blood 10/26/2024 11:1 5 PM EDT 10/26/2024 11:15 PM EDT Harvey Domínguez III, MD POINT OF CARE TEST ORDERABLES Final Result [facility] [address] [facility]. [address] * (ABNORMAL) TEG-Bypass/ECMO/Liver HN (Factor function, Platelet/Fibrin Clot Strength w/Clot Breakdown, Heparinase In All Channels) (10/26/2024 10:36 PM EDT) [facility] Citrated Kaolin Reaction Time (TEGECMOLIVER) 10.0(H) 4.6 - 9.1 minutes 10/26/2024 11:53 PM EDT [facility] Citrated Kaolin W/Heparinase Reaction Time (TEGECMOLIVER) 10.2(H) 4.3 - 8.3 minutes 10/26/2024 11:53 PM EDT [facility] Citrated Kaolin Maximum Amplitude (TEGECMOLIVER) <40.0(L) 52.0 - 69.0 mm 10/26/2024 11:53 PM EDT [facility] Citrated Functional Fibrinogen W/Heparinase Maximum Amplitude(TEGEC MOLIVER) 11.3(L) 15.0 - 34.0 mm 10/26/2024 11:53 PM EDT [facility] Citrated Rapid Teg W/Heparinase Maximum Amplitude (TEGECMOLIVER) 41.8(L) 53.0 - 69.0 mm 10/26/2024 11:53 PM EDT [facility] Citrated Kaolin w/Heparinase Percent Lysis (TEGECMOLIVER) 0.0 0.0 - 3.2 % 10/26/2024 11:53 PM EDT [facility] Whole Blood (Citrate) 10/26/2024 10:36 PM EDT 10/26/2024 10:43 PM EDT us Kemar Sahni MD LAB BLOOD ORDERABLES Final Result [facility] [address] [facility]. [address] * (ABNORMAL) POC Glucose Monitoring Device (10/26/2024 10:14 PM EDT) POC Glucose Monitoring Device 124(H) 70 - 100 mg/dL 10/26/2024 11:11 PM EDT [facility] Blood 10/26/2024 10:1 4 PM EDT 10/26/2024 11:11 PM EDT Harvey Domínguez III, MD POINT OF CARE TEST ORDERABLES Final Result [facility] [address] [facility] * (ABNORMAL) POC Glucose Monitoring Device (10/26/2024 9:16 PM EDT) POC Glucose Monitoring Device 119(H) 70 - 100 mg/dL 10/26/2024 9:18 PM EDT [facility] Blood 10/26/2024 9:16 PM EDT 10/26/2024 9:18 PM EDT Harvey Domínguez III, MD POINT OF CARE TEST ORDERABLES Final Result Performing Organization Address City/[facility]/ZIP Co de Phone Number [facility] [address] [facility] * (ABNORMAL) POC Glucose Monitoring Device (10/26/2024 8:05 PM EDT) POC Glucose Monitoring Device 113(H) 70 - 100 mg/dL 10/26/2024 8:06 PM EDT [facility] Blood 10/26/2024 8:05 PM EDT 10/26/2024 8:06 PM EDT us Harvey Domínguez III, MD POINT OF CARE TEST ORDERABLES Final Result [facility] [address] [facility]. [address] * (ABNORMAL) POC Glucose Monitoring Device (10/26/2024 7:02 PM EDT) POC Glucose Monitoring Device 111(H) 70 - 100 mg/dL 10/26/2024 7:03 PM EDT [facility] Blood 10/26/2024 7:02 PM EDT 10/26/2024 7:03 PM EDT us Harvey Domínguez III, MD POINT OF CARE TEST ORDERABLES Final Result [facility] [address] [facility] * Transfuse Cryoprecipitate Transfusion Rate: Per dept routine (10/26/2024 6:39 PM EDT) Result Tiburcio Pina MD NURSING TREATMENT ORDERABLES - BLOOD ADMIN Final Result Performing Organization Address City/[facility] Co de Phone Number EXTERNAL * Transfuse Cryoprecipitate Transfusion Rate: Per dept routine, 1 Units (10/26/2024 6:39 PM EDT) Result Tiburcio Pina MD NURSING TREATMENT ORDERABLES - BLOOD ADMIN Final Result Performing Organization Address City/[facility] Co de Phone Number EXTERNAL * (ABNORMAL) POC Glucose Monitoring Device (10/26/2024 6:33 PM EDT) POC Glucose Monitoring Device 110(H) 70 - 100 mg/dL 10/26/2024 6:34 PM EDT [facility] Blood 10/26/2024 6:33 PM EDT 10/26/2024 6:34 PM EDT Result Tiburcio Domínguez III, MD POINT OF CARE TEST ORDERABLES Final Result Performing Organization Address City/[facility] Co de Phone Number [facility] [address] * Transfuse Cryoprecipitate Transfusion Rate: Per dept routine (10/26/2024 6:22 PM EDT) Result Tiburcio Pina MD NURSING TREATMENT ORDERABLES - BLOOD ADMIN Final Result Performing Organization Address [facility] de Phone Number EXTERNAL * Transfuse Cryoprecipitate Transfusion Rate: Per dept routine, 1 Units (10/26/2024 6:22 PM EDT) John Pina MD NURSING TREATMENT ORDERABLES - BLOOD ADMIN Final Result Performing Organization Address [facility] Co de Phone Number EXTERNAL * (ABNORMAL) POC Glucose Monitoring Device (10/26/2024 6:17 PM EDT) POC Glucose Monitoring Device 104(H) 70 - 100 mg/dL 10/26/2024 6:18 PM EDT [facility] Blood 10/26/2024 6:17 PM EDT 10/26/2024 6:18 PM EDT Harvey Domínguez III, MD POINT OF CARE TEST ORDERABLES Final Result Performing Organization Address [facility] Co de Phone Number [facility] [address] [facility] * (ABNORMAL) POC Glucose Monitoring Device (10/26/2024 4:58 PM EDT) POC Glucose Monitoring Device 115(H) 70 - 100 mg/dL 10/26/2024 4:59 PM EDT [facility] Blood 10/26/2024 4:58 PM EDT 10/26/2024 4:58 PM EDT Harvey Domínguez III, MD POINT OF CARE TEST ORDERABLES Final Result Performing Organization Address [facility] Co de Phone Number [facility] [address] * (ABNORMAL) Calcium Free, Serum (10/26/2024 4:42 PM EDT) Free Calcium, Ser 5.67(H) 4.40 - 5.40 mg/dL 10/26/2024 4:55 PM EDT [facility] Comment:Free calcium levels vary inversely with pH by approximately 5% for each 0.1 unit of pH change. Assay results have been normalized to pH = 7.40. Serum 10/26/2024 4:42 PM EDT 10/26/2024 4:47 PM EDT Narrative [facility] - 10/26/2024 4:55 PM EDT This test has been developed and its performance characteristics determined by [facility] which is certified under the Clinical Laboratory [...] ORDERABLES Final Resu lt Performing Organization Address [facility] Co de Phone Number [address] * Repeat Crossmatch (Recipient Sample) (10/26/2024 4:42 PM EDT) Repeat Cx - Recipient The request and specimen(s) for this test have been received and transported to the [facility] at [address] [place] [address]. The [facility] will report results directly to the client. 10/26/2024 4:49 PM EDT [facility] Whole Blood 10/26/2024 4:42 PM EDT 10/26/2024 4:49 PM EDT Narrative [facility] - 10/26/2024 4:49 PM EDT To be sent to [facility] for Donor UNOS#[id number] cross match with Blair Gilbert Sveta Judge MD LAB BLOOD ORDERABLES Final Resu lt Performing Organization Address [facility] Co de Phone Number [facility] [address] * (ABNORMAL) Lactic Acid (10/26/2024 4:42 PM EDT) Lactate 0.3(L) 0.5 - 2.2 mmol/L 10/26/2024 5:19 PM EDT [facility] Plasma 10/26/2024 4:42 PM EDT 10/26/2024 4:47 PM EDT Kemar Sahni MD LAB BLOOD ORDERABLES Final Result [facility] [address] [facility]. [address] * Magnesium (10/26/2024 4:42 PM EDT) Magnesium 2.0 1.5 - 2.5 mg/dL 10/26/2024 5:24 PM EDT [facility] Plasma 10/26/2024 4:42 PM EDT 10/26/2024 4:47 PM EDT Kemar Sahni MD LAB BLOOD ORDERABLES Final Result Performing Organization Address [facility] de Phone Number [facility] [address] [facility]. [address] * (ABNORMAL) Hepatic Function Panel (10/26/2024 4:42 PM EDT) Total Bilirubin 2.3(H) 0.0 - 1.5 mg/dL 10/26/2024 5:24 PM EDT [facility] Bilirubin, Direct 1.85(H) 0.00 - 0.40 mg/dL 10/26/2024 5:24 PM EDT [facility] AST 374(H) 13 - 39 U/L 10/26/2024 5:24 PM EDT [facility] ALT 458(H) 7 - 52 U/L 10/26/2024 5:24 PM EDT [facility] Alkaline Phosphatase 39 36 - 125 U/L 10/26/2024 5:24 PM EDT [facility] Total Protein 3.8(L) 6.4 - 8.9 g/dL 10/26/2024 5:24 PM EDT [facility] Albumin 3.0(L) 3.5 - 5.7 g/dL 10/26/2024 5:24 PM EDT [facility] Bilirubin, Indirect 0.45 0.00 - 1.10 mg/dL 10/26/2024 5:24 PM EDT [facility] Plasma 10/26/2024 4:42 PM EDT 10/26/2024 4:47 PM EDT Kemar Sahni MD LAB BLOOD ORDERABLES Final Result Performing Organization Address [facility] Co de Phone Number [facility] [address] [facility]. [address] * (ABNORMAL) Protime-INR (10/26/2024 4:42 PM EDT) Protime 20.3(H) 12.1 - 15.1 seconds 10/26/2024 5:12 PM EDT [facility] INR 1.7(H) 0.9 - 1.1 10/26/2024 5:12 PM EDT [facility] Comment: RECOMMENDED THERAPEUTIC RANGES USING INR : Stable oral anticoagulant therapy: 2.0 - 3.0 Mechanical prosthetic heart valve: 2.5 - 3.5 Recurrent acute myocardial infarction: 2.5 - 3.5 Plasma 10/26/2024 4:42 PM EDT 10/26/2024 4:47 PM EDT Kemar Sahni MD LAB BLOOD ORDERABLES Final Result Performing Organization Address [facility] Co de Phone Number [facility] [address] [facility]. [address] * (ABNORMAL) CBC (10/26/2024 4:42 PM EDT) WBC 10.0 3.8 - 10.8 10E3/uL 10/26/2024 5:00 PM EDT [facility] RBC 3.44(L) 4.20 - 5.80 10E6/uL 10/26/2024 5:00 PM EDT [facility] Hemoglobin 10.5(L) 13.2 - 17.1 g/dL 10/26/2024 5:00 PM EDT [facility] Hematocrit 30.2(L) 38.5 - 50.0 % 10/26/2024 5:00 PM EDT [facility] MCV 87.7 80.0 - 100.0 fL 10/26/2024 5:00 PM EDT [facility] MCH 30.6 27.0 - 33.0 pg 10/26/2024 5:00 PM EDT [facility] MCHC 34.8 32.0 - 36.0 g/dL 10/26/2024 5:00 PM EDT [facility] RDW 20.1(H) 11.0 - 15.0 % 10/26/2024 5:00 PM EDT [facility] Platelets 48(L) 140 - 400 10E3/uL 10/26/2024 5:00 PM EDT [facility] Comment:Specimen checked for clots. None detected. MPV 7.9 7.5 - 11.5 fL 10/26/2024 5:00 PM EDT [facility] Whole Blood 10/26/2024 4:42 PM EDT 10/26/2024 4:47 PM EDT Kemar Sahni MD LAB BLOOD ORDERABLES Final Result [facility] [address] * (ABNORMAL) Renal Function Panel w/EGFR (10/26/2024 4:42 PM EDT) Sodium 142 133 - 146 mmol/L 10/26/2024 5:24 PM EDT [facility] Potassium 3.3(L) 3.5 - 5.3 mmol/L 10/26/2024 5:24 PM EDT [facility] Chloride 109 98 - 110 mmol/L 10/26/2024 5:24 PM EDT [facility] CO2 23 21 - 33 mmol/L 10/26/2024 5:24 PM EDT [facility] Anion Gap 10 3 - 16 mmol/L 10/26/2024 5:24 PM EDT [facility] BUN 63(H) 7 - 25 mg/dL 10/26/2024 5:24 PM EDT [facility] Creatinine 2.85(H) 0.60 - 1.30 mg/dL 10/26/2024 5:24 PM EDT [facility] Glucose 127(H) 70 - 100 mg/dL 10/26/2024 5:24 PM EDT [facility] Calcium 8.9 8.6 - 10.3 mg/dL 10/26/2024 5:24 PM EDT [facility] Phosphorus 4.4 2.1 - 4.7 mg/dL 10/26/2024 5:24 PM EDT [facility] Albumin 3.0(L) 3.5 - 5.7 g/dL 10/26/2024 5:24 PM EDT [facility] Osmolality, Calculated 314(H) 278 - 305 mOsm/kg 10/26/2024 5:24 PM EDT [facility] EGFR 28 10/26/2024 5:24 PM EDT [facility] Comment:As of 2021, the estimated GFR [...] Sahni MD LAB BLOOD ORDERABLES Final Result [facility] [address] [place] [address], [facility] * (ABNORMAL) POC Glucose Monitoring Device (10/26/2024 3:54 PM EDT) POC Glucose Monitoring Device 126(H) 70 - 100 mg/dL 10/26/2024 3:55 PM EDT [facility] Blood 10/26/2024 3:54 PM EDT 10/26/2024 3:55 PM EDT Harvey Domínguez III, MD POINT OF CARE TEST ORDERABLES Final Result Performing Organization Address City/[facility] Co de Phone Number [facility] [address] [place] [address]. [address] * (ABNORMAL) POC Glucose Monitoring Device (10/26/2024 3:06 PM EDT) POC Glucose Monitoring Device 144(H) 70 - 100 mg/dL 10/26/2024 3:14 PM EDT [facility] Blood 10/26/2024 3:06 PM EDT 10/26/2024 3:13 PM EDT Harvey Domínguez III, MD POINT OF CARE TEST ORDERABLES Final Result Performing Organization Address [facility] de Phone Number [facility] [address] [place] [address] * (ABNORMAL) TEG-Bypass/ECMO/Liver HN (Factor function, Platelet/Fibrin Clot Strength w/Clot Breakdown, Heparinase In All Channels) (10/26/2024 3:03 PM EDT) Citrated Kaolin Reaction Time (TEGECMOLIVER) 8.2 4.6 - 9.1 minutes 10/26/2024 4:43 PM EDT [facility] Citrated Kaolin W/Heparinase Reaction Time (TEGECMOLIVER) 8.2 4.3 - 8.3 minutes 10/26/2024 4:43 PM EDT [facility] Citrated Kaolin Maximum Amplitude (TEGECMOLIVER) 41.7(L) 52.0 - 69.0 mm 10/26/2024 4:43 PM EDT [facility] Citrated Functional Fibrinogen W/Heparinase Maximum Amplitude(TEGEC MOLIVER) 11.4(L) 15.0 - 34.0 mm 10/26/2024 4:43 PM EDT [facility] Citrated Rapid Teg W/Heparinase Maximum Amplitude (TEGECMOLIVER) 38.6(L) 53.0 - 69.0 mm 10/26/2024 4:43 PM EDT [facility] Citrated Kaolin w/Heparinase Percent Lysis (TEGECMOLIVER) 0.0 0.0 - 3.2 % 10/26/2024 4:43 PM EDT [facility] Whole Blood (Citrate) 10/26/2024 3:03 PM EDT 10/26/2024 3:10 PM EDT Jani Mooney MD LAB BLOOD ORDERABLES Final Resul t Performing Organization Address [facility] de Phone Number [facility] [address] * ECG 12 lead (MUSE) (10/26/2024 2:19 PM EDT) 10/26/2024 2:19 PM EDT Narrative MUSE - 10/27/2024 10:09 AM EDT Ventricular Rate: 105 BPM Atrial Rate: 105 BPM P-R Interval: 128 ms QRS Duration: 94 ms QT: 474 ms QTc: 626 ms R [place]fu: -37 degrees T [place]: 35 degrees Diagnosis Line: Critical Test Result: Long QTc ^ SINUS TACHYCARDIA ^ LEFT AXIS DEVIATION, LEFT ANTERIOR HEMIBLOCK ^ PROLONGED QT ^ ABNORMAL ECG ^ ^ Confirmed by MD HA, [facility] ([id number]) on 10/27/2024 10:09:25 AM Quinten Best MD ECG ORDERABLES Final Result Performing Organization Address City/[facility]/ZIP Co de Phone Number MUSE * (ABNORMAL) POC Glucose Monitoring Device (10/26/2024 2:00 PM EDT) [facility] POC Glucose Monitoring Device 183(H) 70 - 100 mg/dL 10/26/2024 2:01 PM EDT [facility] Blood 10/26/2024 2:00 PM EDT 10/26/2024 2:01 PM EDT us Harvey Domínguez III, MD POINT OF CARE TEST ORDERABLES Final Result Performing Organization Address [facility] de Phone Number [facility] [address] * (ABNORMAL) POC Glucose Monitoring Device (10/26/2024 1:05 PM EDT) POC Glucose Monitoring Device 212(H) 70 - 100 mg/dL 10/26/2024 1:06 PM EDT [facility] Blood 10/26/2024 1:05 PM EDT 10/26/2024 1:06 PM EDT Harvey Domínguez III, MD POINT OF CARE TEST ORDERABLES Final Result Performing Organization Address [facility] de Phone Number [facility] [address] * Transfuse Cryoprecipitate Has consent been obtained? Yes; Transfusion Rate: Per dept routine (10/26/2024 12:25 PM EDT) us Shay Sifuentes MD NURSING TREATMENT ORDERABLES - BLOOD ADMIN Final Result Performing Organization Address [facility] de Phone Number EXTERNAL * Transfuse Cryoprecipitate Has consent been obtained? Yes; Transfusion Rate: Per dept routine, 1 Units (10/26/2024 12:25 PM EDT) Shay Sifuentes MD NURSING TREATMENT ORDERABLES - BLOOD ADMIN Final Result Performing Organization Address [facility] de Phone Number EXTERNAL * (ABNORMAL) POC Glucose Monitoring Device (10/26/2024 12:06 PM EDT) POC Glucose Monitoring Device 226(H) 70 - 100 mg/dL 10/26/2024 12:07 PM EDT [facility] Blood 10/26/2024 12:0 6 PM EDT 10/26/2024 12:07 PM EDT Harvey Domínguez III, MD POINT OF CARE TEST ORDERABLES Final Result Performing Organization Address [facility] Co de Phone Number [facility] [address] * Transfuse Cryoprecipitate Transfusion Rate: Per dept routine (10/26/2024 12:01 PM EDT) John Pina MD NURSING TREATMENT ORDERABLES - BLOOD ADMIN Final Result Performing Organization Address [facility] Co de Phone Number EXTERNAL * Transfuse Cryoprecipitate Transfusion Rate: Per dept routine, 1 Units (10/26/2024 12:01 PM EDT) John Pina MD NURSING TREATMENT ORDERABLES - BLOOD ADMIN Final Result Performing Organization Address [facility] de Phone Number EXTERNAL * Lactic Acid (10/26/2024 10:48 AM EDT) Lactate 1.2 0.5 - 2.2 mmol/L 10/26/2024 11:27 AM EDT [facility] Plasma 10/26/2024 10:4 8 AM EDT 10/26/2024 10:53 AM EDT Kemar Sahni MD LAB BLOOD ORDERABLES Final Result Performing Organization Address [facility] de Phone Number [facility] [address] * Magnesium (10/26/2024 10:48 AM EDT) Magnesium 2.0 1.5 - 2.5 mg/dL 10/26/2024 11:26 AM EDT [facility] Plasma 10/26/2024 10:4 8 AM EDT 10/26/2024 10:53 AM EDT Kemar Sahni MD LAB BLOOD ORDERABLES Final Result Performing Organization Address City/[facility] Co de Phone Number [facility] [address] * (ABNORMAL) Hepatic Function Panel (10/26/2024 10:48 AM EDT) Total Bilirubin 5.9(H) 0.0 - 1.5 mg/dL 10/26/2024 11:26 AM EDT [facility] Bilirubin, Direct 4.74(H) 0.00 - 0.40 mg/dL 10/26/2024 11:26 AM EDT [facility] AST 872(H) 13 - 39 U/L 10/26/2024 11:26 AM EDT [facility] ALT 736(H) 7 - 52 U/L 10/26/2024 11:26 AM EDT [facility] Alkaline Phosphatase 56 36 - 125 U/L 10/26/2024 11:26 AM EDT [facility] Total Protein 3.5(L) 6.4 - 8.9 g/dL 10/26/2024 11:26 AM EDT [facility] Albumin 2.5(L) 3.5 - 5.7 g/dL 10/26/2024 11:26 AM EDT [facility] Bilirubin, Indirect 1.16(H) 0.00 - 1.10 mg/dL 10/26/2024 11:26 AM EDT [facility] Plasma 10/26/2024 10:4 8 AM EDT 10/26/2024 10:53 AM EDT Kemar Sahni MD LAB BLOOD ORDERABLES Final Result [facility] [address] [place], [place] [id number] [place] [address] * (ABNORMAL) Protime-INR (10/26/2024 10:48 AM EDT) Protime 23.0(H) 12.1 - 15.1 seconds 10/26/2024 11:26 AM EDT [facility] INR 2.0(H) 0.9 - 1.1 10/26/2024 11:26 AM EDT [facility] Comment: RECOMMENDED THERAPEUTIC RANGES USING INR : Stable oral anticoagulant therapy: 2.0 - 3.0 Mechanical prosthetic heart valve: 2.5 - 3.5 Recurrent acute myocardial infarction: 2.5 - 3.5 Plasma 10/26/2024 10:4 8 AM EDT 10/26/2024 10:53 AM EDT Kemar Sahni MD LAB BLOOD ORDERABLES Final Result Performing Organization Address City/State/[facility] Co de Phone Number [facility] [address] * (ABNORMAL) CBC (10/26/2024 10:48 AM EDT) WBC 17.3(H) 3.8 - 10.8 10E3/uL 10/26/2024 11:14 AM EDT [facility] RBC 4.22 4.20 - 5.80 10E6/uL 10/26/2024 11:14 AM EDT [facility] Hemoglobin 12.8(L) 13.2 - 17.1 g/dL 10/26/2024 11:14 AM EDT [facility] Hematocrit 37.2(L) 38.5 - 50.0 % 10/26/2024 11:14 AM EDT [facility] MCV 88.3 80.0 - 100.0 fL 10/26/2024 11:14 AM EDT [facility] MCH 30.4 27.0 - 33.0 pg 10/26/2024 11:14 AM EDT [facility] MCHC 34.4 32.0 - 36.0 g/dL 10/26/2024 11:14 AM EDT [facility] RDW 20.8(H) 11.0 - 15.0 % 10/26/2024 11:14 AM EDT [facility] Platelets 109(L) 140 - 400 10E3/uL 10/26/2024 11:14 AM EDT [facility] MPV 7.5 7.5 - 11.5 fL 10/26/2024 11:14 AM EDT [facility] Whole Blood 10/26/2024 10:4 8 AM EDT 10/26/2024 10:53 AM EDT Kemar Sahni MD LAB BLOOD ORDERABLES Final Result [facility] [address] [place] [address], [facility] * (ABNORMAL) Blood gas, arterial (10/26/2024 10:48 AM EDT) O2 Sat, Arterial 97 10/26/2024 10:54 AM EDT [facility] FIO2 35% 10/26/2024 10:54 AM EDT [facility] pH, Arterial 7.37 7.35 - 7.45 10/26/2024 10:54 AM EDT [facility] pCO2, Arterial 36 35 - 45 mm Hg 10/26/2024 10:54 AM EDT [facility] pO2, Arterial 91 80 - 100 mm Hg 10/26/2024 10:54 AM EDT [facility] HCO3, Arterial 22 22 - 26 mmol/L 10/26/2024 10:54 AM EDT [facility] CO2 Content,Arteri al 22(L) 23 - 27 mmol/L 10/26/2024 10:54 AM EDT [facility] Base Excess, Arterial -3.9(L) -2.0 - 3.0 mmol/L 10/26/2024 10:54 AM EDT [facility] %HBO2, Arterial 94.8(L) 95.0 - 98.0 % 10/26/2024 10:54 AM EDT [facility] Carboxyhemoglo bin, Arterial 1.9 % 10/26/2024 10:54 AM EDT [facility] Comment: CARBOXYHEMOGLOBIN (CO) REFERENCE RANGES: Non-Smokers: <2 % Smokers: <8 % TOXIC: >20 % Methemoglobin, Arterial 0.7 0.0 - 1.5 % 10/26/2024 10:54 AM EDT [facility] Reduced hemoglobin, Arterial 2.5 0.0 - 5.0 % 10/26/2024 10:54 AM EDT [facility] Blood, Arterial 10/26/2024 1 0:48 AM EDT 10/26/2024 10:52 AM EDT Shay Sifuentes MD LAB BLOOD ORDERABLES Final Resu lt [facility] [address] [place] [address], [facility] * (ABNORMAL) Renal Function Panel w/EGFR (10/26/2024 10:48 AM EDT) Sodium 139 133 - 146 mmol/L 10/26/2024 11:26 AM EDT [facility] Potassium 2.9(LL) 3.5 - 5.3 mmol/L 10/26/2024 11:26 AM EDT [facility] Comment:K CRITICAL VALUE WAS PREVIOUSLY CALLED Chloride 107 98 - 110 mmol/L 10/26/2024 11:26 AM EDT [facility] CO2 22 21 - 33 mmol/L 10/26/2024 11:26 AM EDT [facility] Anion Gap 10 3 - 16 mmol/L 10/26/2024 11:26 AM EDT [facility] BUN 61(H) 7 - 25 mg/dL 10/26/2024 11:26 AM EDT [facility] Creatinine 2.78(H) 0.60 - 1.30 mg/dL 10/26/2024 11:26 AM EDT [facility] Glucose 253(H) 70 - 100 mg/dL 10/26/2024 11:26 AM EDT [facility] Calcium 8.8 8.6 - 10.3 mg/dL 10/26/2024 11:26 AM EDT [facility] Phosphorus 4.1 2.1 - 4.7 mg/dL 10/26/2024 11:26 AM EDT [facility] Albumin 2.5(L) 3.5 - 5.7 g/dL 10/26/2024 11:26 AM EDT [facility] Osmolality, Calculated 314(H) 278 - 305 mOsm/kg 10/26/2024 11:26 AM EDT [facility] EGFR 28 10/26/2024 11:26 AM EDT [facility] Comment:As of 2021, the estimated GFR [...] BLOOD ORDERABLES Final Result Performing Organization Address City/[facility]/ZIP Co de Phone Number [facility] [address] * (ABNORMAL) POC Glucose Monitoring Device (10/26/2024 10:47 AM EDT) POC Glucose Monitoring Device 234(H) 70 - 100 mg/dL 10/26/2024 10:48 AM EDT [facility] Blood 10/26/2024 10:4 7 AM EDT 10/26/2024 10:48 AM EDT Harvey Domínguez III, MD POINT OF CARE TEST ORDERABLES Final Result Performing Organization Address City/[facility]/ZIP Co de Phone Number [facility] [address] [facility]. [address] * CARISA Rhythm Strip - Scan (10/26/2024 10:45 AM EDT) Scanning Uchhim SCAN DOCS - NO RESULTS Final Res ult * (ABNORMAL) POC Glucose Monitoring Device (10/26/2024 10:08 AM EDT) POC Glucose Monitoring Device 235(H) 70 - 100 mg/dL 10/26/2024 10:09 AM EDT [facility] Blood 10/26/2024 10:0 8 AM EDT 10/26/2024 10:09 AM EDT Harvey Domínguez III, MD POINT OF CARE TEST ORDERABLES Final Result Performing Organization Address [facility] Co de Phone Number [facility] [address] * (ABNORMAL) POC Glucose Monitoring Device (10/26/2024 8:57 AM EDT) [facility] POC Glucose Monitoring Device 232(H) 70 - 100 mg/dL 10/26/2024 8:59 AM EDT [facility] Blood 10/26/2024 8:57 AM EDT 10/26/2024 8:58 AM EDT Harvey Domínguez III, MD POINT OF CARE TEST ORDERABLES Final Result Performing Organization Address [facility] de Phone Number [facility] [address] * ECG 12 lead (MUSE) (10/26/2024 8:16 AM EDT) 10/26/2024 8:16 AM EDT Narrative MUSE - 10/27/2024 10:09 AM EDT Ventricular Rate: 112 BPM QRS Duration: 96 ms QT: 452 ms QTc: 616 ms R [place]: -41 degrees T [place]: 40 degrees Diagnosis Line: Critical Test Result: Long QTc ^ SINUS TACHYCARDIA OCCASIONAL PREMATURE VENTRICULAR COMPLEXES ^ LEFT AXIS DEVIATION, LEFT ANTERIOR HEMIBLOCK ^ PROLONGED QT ^ ABNORMAL ECG ^ ^ Confirmed by MD HA, ERICK ([id number]) on 10/27/2024 10:09:18 AM Shay Sifuentes MD ECG ORDERABLES Final Result Performing Organization Address [facility] Co de Phone Number MUSE * [...] - 100 mg/dL 10/26/2024 8:01 AM EDT [facility] Blood 10/26/2024 7:59 AM EDT 10/26/2024 8:00 AM EDT Harvey Domínguez III, MD POINT OF CARE TEST ORDERABLES Final Result Performing Organization Address City/[facility]/ZIP Co de Phone Number [facility] [address] [facility]. [address] * (ABNORMAL) TEG-Bypass/ECMO/Liver HN (Factor function, Platelet/Fibrin Clot Strength w/Clot Breakdown, Heparinase In All Channels) (10/26/2024 7:59 AM EDT) [facility] Citrated Kaolin Reaction Time (TEGECMOLIVER) 8.2 4.6 - 9.1 minutes 10/26/2024 10:36 AM EDT [facility] Citrated Kaolin W/Heparinase Reaction Time (TEGECMOLIVER) 8.1 4.3 - 8.3 minutes 10/26/2024 10:36 AM EDT [facility] Citrated Kaolin Maximum Amplitude (TEGECMOLIVER) 46.8(L) 52.0 - 69.0 mm 10/26/2024 10:36 AM EDT [facility] Citrated Functional Fibrinogen W/Heparinase Maximum Amplitude(TEGEC MOLIVER) 10.5(L) 15.0 - 34.0 mm 10/26/2024 10:36 AM EDT [facility] Citrated Rapid Teg W/Heparinase Maximum Amplitude (TEGECMOLIVER) 45.5(L) 53.0 - 69.0 mm 10/26/2024 10:36 AM EDT [facility] Citrated Kaolin w/Heparinase Percent Lysis (TEGECMOLIVER) 0.0 0.0 - 3.2 % 10/26/2024 10:36 AM EDT [facility] Whole Blood (Citrate) 10/26/2024 7:59 AM EDT 10/26/2024 8:05 AM EDT us Shay Sifuentes MD LAB BLOOD ORDERABLES Final Resu lt [facility] [address] * (ABNORMAL) POC Glucose Monitoring Device (10/26/2024 6:12 AM EDT) [facility] POC Glucose Monitoring Device 196(H) 70 - 100 mg/dL 10/26/2024 6:13 AM EDT [facility] Blood 10/26/2024 6:12 AM EDT 10/26/2024 6:13 AM EDT Harvey Domínguez III, MD POINT OF CARE TEST ORDERABLES Final Result Performing Organization Address City/[facility]/ZIP Co de Phone Number [facility] [address] [place] [address]. [address] * Lactic Acid (10/26/2024 6:10 AM EDT) [facility] Lactate 1.2 0.5 - 2.2 mmol/L 10/26/2024 6:39 AM EDT [facility] Plasma 10/26/2024 6:10 AM EDT 10/26/2024 6:19 AM EDT Sveta Judge MD LAB BLOOD ORDERABLES Final Resu lt Performing Organization Address [facility] Co de Phone Number [facility] [address] [place] [address]. [address] * (ABNORMAL) Fibrinogen (10/26/2024 6:10 AM EDT) [facility] Fibrinogen 160(L) 218 - 406 mg/dL 10/26/2024 6:41 AM EDT [facility] Plasma 10/26/2024 6:10 AM EDT 10/26/2024 6:26 AM EDT Sveta Judge MD LAB BLOOD ORDERABLES Final Resu lt Performing Organization Address [facility] Co de Phone Number [facility] [address] [place] [address]. [address] * (ABNORMAL) Protime-INR (10/26/2024 6:10 AM EDT) Protime 25.0(H) 12.1 - 15.1 seconds 10/26/2024 6:41 AM EDT [facility]ALTH [facility] INR 2.2(H) 0.9 - 1.1 10/26/2024 6:41 AM EDT [facility] Comment: RECOMMENDED THERAPEUTIC RANGES USING INR : Stable oral anticoagulant therapy: 2.0 - 3.0 Mechanical prosthetic heart valve: 2.5 - 3.5 Recurrent acute myocardial infarction: 2.5 - 3.5 Plasma 10/26/2024 6:10 AM EDT 10/26/2024 6:26 AM EDT us Sveta Judge MD LAB BLOOD ORDERABLES Final Resu lt [facility] [address] [place] [address], [facility] * (ABNORMAL) Blood gas, arterial (10/26/2024 6:10 AM EDT) Pathologist [facility] O2 Sat, Arterial 98 10/26/2024 6:23 AM EDT [facility] FIO2 60 10/26/2024 6:23 AM EDT [facility] pH, Arterial 7.27(L) 7.35 - 7.45 10/26/2024 6:23 AM EDT [facility] pCO2, Arterial 47(H) 35 - 45 mm Hg 10/26/2024 6:23 AM EDT [facility] pO2, Arterial 127(H) 80 - 100 mm Hg 10/26/2024 6:23 AM EDT [facility] HCO3, Arterial 21(L) 22 - 26 mmol/L 10/26/2024 6:23 AM EDT [facility] CO2 Content,Arteri al 23 23 - 27 mmol/L 10/26/2024 6:23 AM EDT [facility] Base Excess, Arterial -5.4(L) -2.0 - 3.0 mmol/L 10/26/2024 6:23 AM EDT [facility] %HBO2, Arterial 94.6(L) 95.0 - 98.0 % 10/26/2024 6:23 AM EDT [facility] Carboxyhemoglo bin, Arterial 2.0 % 10/26/2024 6:23 AM EDT [facility] Comment: CARBOXYHEMOGLOBIN (CO) REFERENCE RANGES: Non-Smokers: <2 % Smokers: <8 % TOXIC: >20 % Methemoglobin, Arterial 1.6(H) 0.0 - 1.5 % 10/26/2024 6:23 AM EDT [facility] Reduced hemoglobin, Arterial 1.8 0.0 - 5.0 % 10/26/2024 6:23 AM EDT [facility] Blood, Arterial 10/26/2024 6 :10 AM EDT 10/26/2024 6:20 AM EDT us Sveta Judge MD LAB BLOOD ORDERABLES Final Resu lt Performing Organization Address City/[facility]/ZIP Co de Phone Number [facility] [address] [facility]. [address] * Magnesium (10/26/2024 6:10 AM EDT) Magnesium 1.5 1.5 - 2.5 mg/dL 10/26/2024 7:09 AM EDT [facility] Plasma 10/26/2024 6:10 AM EDT 10/26/2024 6:23 AM EDT Sveta Judge MD LAB BLOOD ORDERABLES Final Resu lt Performing Organization Address City/[facility] Co de Phone Number [facility] [address] [facility]. [address] * (ABNORMAL) Hepatic Function Panel (10/26/2024 6:10 AM EDT) Total Bilirubin 6.2(H) 0.0 - 1.5 mg/dL 10/26/2024 7:11 AM EDT [facility] Bilirubin, Direct 5.26(H) 0.00 - 0.40 mg/dL 10/26/2024 7:11 AM EDT [facility] AST 1,071(H) 13 - 39 U/L 10/26/2024 7:11 AM EDT [facility] ALT 805(H) 7 - 52 U/L 10/26/2024 7:11 AM EDT [facility] Alkaline Phosphatase 55 36 - 125 U/L 10/26/2024 7:11 AM EDT [facility] Total Protein <3.0(L) 6.4 - 8.9 g/dL 10/26/2024 7:11 AM EDT [facility] Albumin 1.9(L) 3.5 - 5.7 g/dL 10/26/2024 7:11 AM EDT [facility] Bilirubin, Indirect 0.94 0.00 - 1.10 mg/dL 10/26/2024 7:11 AM EDT [facility] Plasma 10/26/2024 6:10 AM EDT 10/26/2024 6:23 AM EDT us Sveta Judge MD LAB BLOOD ORDERABLES Final Resu lt [facility] [address] [id number], [facility] * (ABNORMAL) Renal Function Panel w/EGFR (10/26/2024 6:10 AM EDT) Sodium 141 133 - 146 mmol/L 10/26/2024 7:09 AM EDT [facility] Potassium 2.8(LL) 3.5 - 5.3 mmol/L 10/26/2024 7:09 AM EDT [facility] Comment:Critical value previ ously called. Chloride 106 98 - 110 mmol/L 10/26/2024 7:09 AM EDT [facility] CO2 25 21 - 33 mmol/L 10/26/2024 7:09 AM EDT [facility] Anion Gap 10 3 - 16 mmol/L 10/26/2024 7:09 AM EDT [facility] BUN 57(H) 7 - 25 mg/dL 10/26/2024 7:09 AM EDT [facility] Creatinine 2.70(H) 0.60 - 1.30 mg/dL 10/26/2024 7:09 AM EDT [facility] Glucose 210(H) 70 - 100 mg/dL 10/26/2024 7:09 AM EDT [facility] Calcium 8.7 8.6 - 10.3 mg/dL 10/26/2024 7:09 AM EDT [facility] Phosphorus 5.4(H) 2.1 - 4.7 mg/dL 10/26/2024 7:09 AM EDT [facility] Albumin 1.9(L) 3.5 - 5.7 g/dL 10/26/2024 7:11 AM EDT [facility] Osmolality, Calculated 314(H) 278 - 305 mOsm/kg 10/26/2024 7:09 AM EDT [facility] EGFR 29 10/26/2024 7:09 AM EDT [facility] Comment:As of 2021, the estimated GFR [...] MD LAB BLOOD ORDERABLES Final Resu lt [facility] [address] * (ABNORMAL) CBC (10/26/2024 6:10 AM EDT) WBC 14.8(H) 3.8 - 10.8 10E3/uL 10/26/2024 6:46 AM EDT [facility] RBC 4.04(L) 4.20 - 5.80 10E6/uL 10/26/2024 6:46 AM EDT [facility] Hemoglobin 12.7(L) 13.2 - 17.1 g/dL 10/26/2024 6:46 AM EDT [facility] Hematocrit 35.9(L) 38.5 - 50.0 % 10/26/2024 6:46 AM EDT [facility] MCV 89.0 80.0 - 100.0 fL 10/26/2024 6:46 AM EDT [facility] MCH 31.3 27.0 - 33.0 pg 10/26/2024 6:46 AM EDT [facility] MCHC 35.2 32.0 - 36.0 g/dL 10/26/2024 6:46 AM EDT [facility] RDW 19.7(H) 11.0 - 15.0 % 10/26/2024 6:46 AM EDT [facility] Platelets 107(L) 140 - 400 10E3/uL 10/26/2024 6:46 AM EDT [facility] MPV 7.4(L) 7.5 - 11.5 fL 10/26/2024 6:46 AM EDT [facility] Whole Blood 10/26/2024 6:10 AM EDT 10/26/2024 6:26 AM EDT Sveta Judge MD LAB BLOOD ORDERABLES Final Resu lt [facility] [address] [place] [address], [facility] * (ABNORMAL) POC INR (10/26/2024 5:16 AM EDT) Pathologist [facility] Prothrombin Time INR, POC 2.4(H) 0.8 - 1.4 10/27/2024 6:51 AM EDT [facility] Comment: Test results may vary using [...] TEST ORDERABLES Final Result Performing Organization Address City/[facility] Co de Phone Number [facility] [address] [facility]. [address] * POC Sample Type (10/26/2024 5:14 AM EDT) POC Sample Type Arterial 10/26/2024 5:31 AM EDT [facility] Blood, Arterial 10/26/2024 5 :14 AM EDT 10/26/2024 5:31 AM EDT us Harvey Domínguez III, MD POINT OF CARE TEST ORDERABLES Final Result Performing Organization Address [facility] Co de Phone Number [facility] [address] [facility]. [address] * POC Anion Gap (10/26/2024 5:14 AM EDT) POC Anion Gap, Arterial 12 3 - 16 mmol/L 10/26/2024 5:31 AM EDT [facility] Blood, Arterial 10/26/2024 5 :14 AM EDT 10/26/2024 5:31 AM EDT us Harvey Domínguez III, MD POINT OF CARE TEST ORDERABLES Final Result Performing Organization Address City/[facility] Co de Phone Number [facility] [address] [place] [address]. [address] * POC Chloride (10/26/2024 5:14 AM EDT) POC Chloride 104 98 - 110 mmol/L 10/26/2024 5:31 AM EDT [facility] Blood, Arterial 10/26/2024 5 :14 AM EDT 10/26/2024 5:31 AM EDT us Harvey Domínguez III, MD POINT OF CARE TEST ORDERABLES Final Result Performing Organization Address City/[facility] Co de Phone Number [facility] [address] [facility]. [address] * (ABNORMAL) POC Hemoglobin (10/26/2024 5:14 AM EDT) POC Hemoglobin 9.5(L) 14.0 - 18.0 g/dL 10/26/2024 5:31 AM EDT [facility] Blood, Arterial 10/26/2024 5 :14 AM EDT 10/26/2024 5:31 AM EDT us Harvey Domínguez III, MD POINT OF CARE TEST ORDERABLES Final Result Performing Organization Address [facility] Co de Phone Number [facility] [address] [facility]. [address] * (ABNORMAL) POC hematocrit (10/26/2024 5:14 AM EDT) POC Hematocrit 28.0(L) 40 - 52 % 10/26/2024 5:31 AM EDT [facility] Blood, Arterial 10/26/2024 5 :14 AM EDT 10/26/2024 5:31 AM EDT us Harvey Domínguez III, MD POINT OF CARE TEST ORDERABLES Final Result Performing Organization Address [facility] Co de Phone Number [facility] [address] [facility]. [address] * POC Lactate (10/26/2024 5:14 AM EDT) POC Lactate 1.76 0.50 - 2.20 mmol/L 10/26/2024 5:31 AM EDT [facility] Blood, Arterial 10/26/2024 5 :14 AM EDT 10/26/2024 5:31 AM EDT us Harvey Domínguez III, MD POINT OF CARE TEST ORDERABLES Final Result [facility] [address] * (ABNORMAL) POC Glucose (10/26/2024 5:14 AM EDT) POC Glucose, Arterial 183(H) 70 - 100 mg/dL 10/26/2024 5:31 AM EDT [facility] Blood, Arterial 10/26/2024 5 :14 AM EDT 10/26/2024 5:31 AM EDT us Harvey Domínguez III, MD POINT OF CARE TEST ORDERABLES Final Result Performing Organization Address City/[facility]/ZIP Co de Phone Number [facility] [address] * (ABNORMAL) POC Ionized Calcium (10/26/2024 5:14 AM EDT) POC Ionized Calcium 5.50(H) 4.50 - 5.30 mg/dL 10/26/2024 5:31 AM EDT [facility] Blood, Arterial 10/26/2024 5 :14 AM EDT 10/26/2024 5:31 AM EDT us Harvey Domínguez III, MD POINT OF CARE TEST ORDERABLES Final Result Performing Organization Address [facility] Co de Phone Number [facility] [address] [facility]. [address] * (ABNORMAL) POC Potassium (10/26/2024 5:14 AM EDT) POC Potassium 2.8(LL) 3.5 - 5.3 mmol/L 10/26/2024 5:31 AM EDT [facility] Blood, Arterial 10/26/2024 5 :14 AM EDT 10/26/2024 5:31 AM EDT us Harvey Domínguez III, MD POINT OF CARE TEST ORDERABLES Final Result [facility] [address] * POC Sodium (10/26/2024 5:14 AM EDT) POC Sodium 138 136 - 146 mmol/L 10/26/2024 5:31 AM EDT [facility] Blood, Arterial 10/26/2024 5 :14 AM EDT 10/26/2024 5:31 AM EDT Harvey Domínguez III, MD POINT OF CARE TEST ORDERABLES Final Result [facility] [address] * POC TCO2 (10/26/2024 5:14 AM EDT) POC TCO2, Arterial 23 23 - 27 mmol/L 10/26/2024 5:31 AM EDT [facility] Blood, Arterial 10/26/2024 5 :14 AM EDT 10/26/2024 5:31 AM EDT us Harvey Domínguez III, MD POINT OF CARE TEST ORDERABLES Final Result Performing Organization Address [facility]/State/ZIP Co de Phone Number [facility] [address] * (ABNORMAL) POC O2 SAT (10/26/2024 5:14 AM EDT) POC O2 Saturation, Arterial 99(H) 95 - 98 % 10/26/2024 5:31 AM EDT [facility] Blood, Arterial 10/26/2024 5 :14 AM EDT 10/26/2024 5:31 AM EDT us Harvey Domínguez III, MD POINT OF CARE TEST ORDERABLES Final Result [facility] [address] * (ABNORMAL) POC Base Excess (10/26/2024 5:14 AM EDT) POC Base Excess, Arterial -5(L) -2 - 3 mmol/L 10/26/2024 5:31 AM EDT [facility] Blood, Arterial 10/26/2024 5 :14 AM EDT 10/26/2024 5:31 AM EDT Harvey Domínguez III, MD POINT OF CARE TEST ORDERABLES Final Result [facility] [address] * POC HCO3 (10/26/2024 5:14 AM EDT) POC HCO3, Arterial 22 22 - 26 mmol/L 10/26/2024 5:31 AM EDT [facility] Blood, Arterial 10/26/2024 5 :14 AM EDT 10/26/2024 5:31 AM EDT Harvey Domínguez III, MD POINT OF CARE TEST ORDERABLES Final Result Performing Organization Address [facility] Co de Phone Number [facility] [address] [facility]. [address] * (ABNORMAL) POC PO2 (10/26/2024 5:14 AM EDT) POC pO2, Arterial 133(H) 80 - 100 mm Hg 10/26/2024 5:31 AM EDT [facility] Blood, Arterial 10/26/2024 5 :14 AM EDT 10/26/2024 5:31 AM EDT Harvey Domínguez III, MD POINT OF CARE TEST ORDERABLES Final Result Performing Organization Address City/[facility]/ZIP Co de Phone Number [facility] [address] * POC PCO2 (10/26/2024 5:14 AM EDT) POC pCO2, Arterial 45 35 - 45 mm Hg 10/26/2024 5:31 AM EDT [facility] Blood, Arterial 10/26/2024 5 :14 AM EDT 10/26/2024 5:31 AM EDT Harvey Domínguez III, MD POINT OF CARE TEST ORDERABLES Final Result Performing Organization Address [facility] Co de Phone Number [facility] [address] [facility] * (ABNORMAL) POC pH (10/26/2024 5:14 AM EDT) Pathologist [facility] POC pH, Arterial 7.29(L) 7.35 - 7.45 10/26/2024 5:31 AM EDT [facility] Blood, Arterial 10/26/2024 5 :14 AM EDT 10/26/2024 5:31 AM EDT Harvey Domínguez III, MD POINT OF CARE TEST ORDERABLES Final Result Performing Organization Address [facility] de Phone Number [facility] [address] [facility] * Transfuse Cryoprecipitate (10/26/2024 4:37 AM EDT) Result [facility] Eber Quinones MD NURSING TREATMENT ORDERA BLES - BLOOD ADMIN Final Result * Transfuse Cryoprecipitate (10/26/2024 4:37 AM EDT) Eber Quinones MD NURSING TREATMENT ORDERA BLES - BLOOD ADMIN Final Result * (ABNORMAL) POC INR (10/26/2024 4:27 AM EDT) Prothrombin Time INR, POC 2.3(H) 0.8 - 1.4 10/27/2024 6:51 AM EDT [facility] Comment: Test results may vary using [...] POINT OF CARE TEST ORDERABLES Final Result [facility] [address] [address] * POC Sample Type (10/26/2024 4:24 AM EDT) POC Sample Type Arterial 10/26/2024 5:09 AM EDT [facility] Blood, Arterial 10/26/2024 4 :24 AM EDT 10/26/2024 5:09 AM EDT Harvey Domínguez III, MD POINT OF CARE TEST ORDERABLES Final Result Performing Organization Address [facility] Co de Phone Number [facility] [address] [facility] * POC Anion Gap (10/26/2024 4:24 AM EDT) POC Anion Gap, Arterial 14 3 - 16 mmol/L 10/26/2024 5:09 AM EDT [facility] Blood, Arterial 10/26/2024 4 :24 AM EDT 10/26/2024 5:09 AM EDT us Harvey Domínguez III, MD POINT OF CARE TEST ORDERABLES Final Result Performing Organization Address City/[facility] Co de Phone Number [facility] [address] [place] [address]. [address] * POC Chloride (10/26/2024 4:24 AM EDT) POC Chloride 103 98 - 110 mmol/L 10/26/2024 5:09 AM EDT [facility] Blood, Arterial 10/26/2024 4 :24 AM EDT 10/26/2024 5:09 AM EDT us Harvey Domínguez III, MD POINT OF CARE TEST ORDERABLES Final Result Performing Organization Address City/[facility]/ZIP Co de Phone Number [facility] [address] [facility]. [address] * (ABNORMAL) POC Hemoglobin (10/26/2024 4:24 AM EDT) POC Hemoglobin 10.3(L) 14.0 - 18.0 g/dL 10/26/2024 5:09 AM EDT [facility] Blood, Arterial 10/26/2024 4 :24 AM EDT 10/26/2024 5:09 AM EDT us Harvey Domínguez III, MD POINT OF CARE TEST ORDERABLES Final Result Performing Organization Address [facility] Co de Phone Number [facility] [address] [facility]. [address] * (ABNORMAL) POC hematocrit (10/26/2024 4:24 AM EDT) POC Hematocrit 30.0(L) 40 - 52 % 10/26/2024 5:09 AM EDT [facility] Blood, Arterial 10/26/2024 4 :24 AM EDT 10/26/2024 5:09 AM EDT us Harvey Domínguez III, MD POINT OF CARE TEST ORDERABLES Final Result Performing Organization Address City/[facility] Co de Phone Number [facility] [address] [facility]. [address] * (ABNORMAL) POC Lactate (10/26/2024 4:24 AM EDT) POC Lactate 2.43(H) 0.50 - 2.20 mmol/L 10/26/2024 5:09 AM EDT [facility] Blood, Arterial 10/26/2024 4 :24 AM EDT 10/26/2024 5:09 AM EDT us Harvey Domínguez III, MD POINT OF CARE TEST ORDERABLES Final Result Performing Organization Address City/[facility]/ZIP Co de Phone Number [facility] [address] [facility]. [address] * (ABNORMAL) POC Glucose (10/26/2024 4:24 AM EDT) POC Glucose, Arterial 185(H) 70 - 100 mg/dL 10/26/2024 5:09 AM EDT [facility] Blood, Arterial 10/26/2024 4 :24 AM EDT 10/26/2024 5:09 AM EDT us Harvey Domínguez III, MD POINT OF CARE TEST ORDERABLES Final Result Performing Organization Address [facility] Co de Phone Number [facility] [address] [facility]. [address] * POC Ionized Calcium (10/26/2024 4:24 AM EDT) POC Ionized Calcium 5.20 4.50 - 5.30 mg/dL 10/26/2024 5:09 AM EDT [facility] Blood, Arterial 10/26/2024 4 :24 AM EDT 10/26/2024 5:09 AM EDT us Harvey Domínguez III, MD POINT OF CARE TEST ORDERABLES Final Result Performing Organization Address City/[facility] Co de Phone Number [facility] [address] [facility]. [address] * (ABNORMAL) POC Potassium (10/26/2024 4:24 AM EDT) POC Potassium 2.8(LL) 3.5 - 5.3 mmol/L 10/26/2024 5:09 AM EDT [facility] Blood, Arterial 10/26/2024 4 :24 AM EDT 10/26/2024 5:09 AM EDT us Harvey Domínguez III, MD POINT OF CARE TEST ORDERABLES Final Result Performing Organization Address City/[facility]/ZIP Co de Phone Number [facility] [address] [facility]. [address] * POC Sodium (10/26/2024 4:24 AM EDT) POC Sodium 139 136 - 146 mmol/L 10/26/2024 5:09 AM EDT [facility] Blood, Arterial 10/26/2024 4 :24 AM EDT 10/26/2024 5:09 AM EDT us Harvey Domínguez III, MD POINT OF CARE TEST ORDERABLES Final Result Performing Organization Address [facility] Co de Phone Number [facility] [address] * POC TCO2 (10/26/2024 4:24 AM EDT) POC TCO2, Arterial 23 23 - 27 mmol/L 10/26/2024 5:09 AM EDT [facility] Blood, Arterial 10/26/2024 4 :24 AM EDT 10/26/2024 5:09 AM EDT Harvey Domínguez III, MD POINT OF CARE TEST ORDERABLES Final Result [facility] [address] [facility]. [address] * POC O2 SAT (10/26/2024 4:24 AM EDT) POC O2 Saturation, Arterial 96 95 - 98 % 10/26/2024 5:09 AM EDT [facility] Blood, Arterial 10/26/2024 4 :24 AM EDT 10/26/2024 5:09 AM EDT us Harvey Domínguez III, MD POINT OF CARE TEST ORDERABLES Final Result Performing Organization Address [facility] Co de Phone Number [facility] [address] * (ABNORMAL) POC Base Excess (10/26/2024 4:24 AM EDT) POC Base Excess, Arterial -5(L) -2 - 3 mmol/L 10/26/2024 5:09 AM EDT [facility] Blood, Arterial 10/26/2024 4 :24 AM EDT 10/26/2024 5:09 AM EDT us Harvey Domínguez III, MD POINT OF CARE TEST ORDERABLES Final Result Performing Organization Address [facility] Co de Phone Number [facility] [address]. [address] * POC HCO3 (10/26/2024 4:24 AM EDT) POC HCO3, Arterial 22 22 - 26 mmol/L 10/26/2024 5:09 AM EDT [facility] Blood, Arterial 10/26/2024 4 :24 AM EDT 10/26/2024 5:09 AM EDT us Harvey Domínguez III, MD POINT OF CARE TEST ORDERABLES Final Result Performing Organization Address City/[facility] Co de Phone Number [facility] [address] [facility]. [address] * POC PO2 (10/26/2024 4:24 AM EDT) POC pO2, Arterial 93 80 - 100 mm Hg 10/26/2024 5:09 AM EDT [facility] Blood, Arterial 10/26/2024 4 :24 AM EDT 10/26/2024 5:09 AM EDT Harvey Domínguez III, MD POINT OF CARE TEST ORDERABLES Final Result Performing Organization Address [facility] Co de Phone Number [facility] [address] [place] [address]. [address] * POC PCO2 (10/26/2024 4:24 AM EDT) POC pCO2, Arterial 44 35 - 45 mm Hg 10/26/2024 5:09 AM EDT [facility] Blood, Arterial 10/26/2024 4 :24 AM EDT 10/26/2024 5:09 AM EDT Harvey Domínguez III, MD POINT OF CARE TEST ORDERABLES Final Result Performing Organization Address [facility] Co de Phone Number [facility] [address] [place] [address]. [address] * (ABNORMAL) POC pH (10/26/2024 4:24 AM EDT) POC pH, Arterial 7.30(L) 7.35 - 7.45 10/26/2024 5:09 AM EDT [facility] Blood, Arterial 10/26/2024 4 :24 AM EDT 10/26/2024 5:09 AM EDT Harvey Domínguez III, MD POINT OF CARE TEST ORDERABLES Final Result Performing Organization Address [facility] Co de Phone Number [address] * Transfuse Platelets (10/26/2024 4:14 AM EDT) Ben Blake MD NURSING TREATMENT ORDERABLES - BLOOD ADMIN Final Result * Transfuse Fresh Frozen Plasma (10/26/2024 3:47 AM EDT) Ben Blake MD NURSING TREATMENT ORDERABLES - BLOOD ADMIN Final Result * (ABNORMAL) POC INR (10/26/2024 3:34 AM EDT) Prothrombin Time INR, POC 2.8(H) 0.8 - 1.4 10/27/2024 6:51 AM EDT [facility] Comment: Test results may vary using [...] TEST ORDERABLES Final Result Performing Organization Address City/[facility] Co de Phone Number [facility] [address] [facility]. [address] * POC Sample Type (10/26/2024 3:31 AM EDT) Pathologist [facility] POC Sample Type Arterial 10/26/2024 4:11 AM EDT [facility] Blood, Arterial 10/26/2024 3 :31 AM EDT 10/26/2024 4:11 AM EDT us Harvey Domínguez III, MD POINT OF CARE TEST ORDERABLES Final Result Performing Organization Address [facility] Co de Phone Number [facility] [address] * POC Anion Gap (10/26/2024 3:31 AM EDT) POC Anion Gap, Arterial 15 3 - 16 mmol/L 10/26/2024 4:11 AM EDT [facility] Blood, Arterial 10/26/2024 3 :31 AM EDT 10/26/2024 4:11 AM EDT us Harvey Domínguez III, MD POINT OF CARE TEST ORDERABLES Final Result Performing Organization Address City/[facility]/ZIP Co de Phone Number [facility] [address] * POC Chloride (10/26/2024 3:31 AM EDT) POC Chloride 105 98 - 110 mmol/L 10/26/2024 4:11 AM EDT [facility] Blood, Arterial 10/26/2024 3 :31 AM EDT 10/26/2024 4:11 AM EDT us Harvey Domínguez III, MD POINT OF CARE TEST ORDERABLES Final Result [facility] [address] * (ABNORMAL) POC Hemoglobin (10/26/2024 3:31 AM EDT) Pathologist [facility] POC Hemoglobin 9.7(L) 14.0 - 18.0 g/dL 10/26/2024 4:11 AM EDT [facility] Blood, Arterial 10/26/2024 3 :31 AM EDT 10/26/2024 4:11 AM EDT us Harvey Domínguez III, MD POINT OF CARE TEST ORDERABLES Final Result Performing Organization Address City/[facility]/ZIP Co de Phone Number [facility] [address] * (ABNORMAL) POC hematocrit (10/26/2024 3:31 AM EDT) Pathologist [facility] POC Hematocrit 29.0(L) 40 - 52 % 10/26/2024 4:11 AM EDT [facility] Blood, Arterial 10/26/2024 3 :31 AM EDT 10/26/2024 4:11 AM EDT us Harvey Domínguez III, MD POINT OF CARE TEST ORDERABLES Final Result [facility] [address] * (ABNORMAL) POC Lactate (10/26/2024 3:31 AM EDT) POC Lactate 3.54(H) 0.50 - 2.20 mmol/L 10/26/2024 4:11 AM EDT [facility] Blood, Arterial 10/26/2024 3 :31 AM EDT 10/26/2024 4:11 AM EDT us Harvey Domínguez III, MD POINT OF CARE TEST ORDERABLES Final Result Performing Organization Address City/[facility]/ZIP Co de Phone Number [facility] [address] [facility]. [address] * (ABNORMAL) POC Glucose (10/26/2024 3:31 AM EDT) POC Glucose, Arterial 153(H) 70 - 100 mg/dL 10/26/2024 4:11 AM EDT [facility] Blood, Arterial 10/26/2024 3 :31 AM EDT 10/26/2024 4:11 AM EDT us Harvey Domínguez III, MD POINT OF CARE TEST ORDERABLES Final Result Performing Organization Address [place] [facility] Co de Phone Number [facility] [address] [facility]. [address] * POC Ionized Calcium (10/26/2024 3:31 AM EDT) POC Ionized Calcium 5.10 4.50 - 5.30 mg/dL 10/26/2024 4:11 AM EDT [facility] Blood, Arterial 10/26/2024 3 :31 AM EDT 10/26/2024 4:11 AM EDT us Harvey Domínguez III, MD POINT OF CARE TEST ORDERABLES Final Result Performing Organization Address City/[facility]/ZIP Co de Phone Number [facility] [address] [facility]. [address] * (ABNORMAL) POC Potassium (10/26/2024 3:31 AM EDT) POC Potassium 2.6(LL) 3.5 - 5.3 mmol/L 10/26/2024 4:11 AM EDT [facility] Blood, Arterial 10/26/2024 3 :31 AM EDT 10/26/2024 4:11 AM EDT us Harvey Domínguez III, MD POINT OF CARE TEST ORDERABLES Final Result [facility] [address] [facility]. [address] * POC Sodium (10/26/2024 3:31 AM EDT) POC Sodium 138 136 - 146 mmol/L 10/26/2024 4:11 AM EDT [facility] Blood, Arterial 10/26/2024 3 :31 AM EDT 10/26/2024 4:11 AM EDT us Harvey Domínguez III, MD POINT OF CARE TEST ORDERABLES Final Result Performing Organization Address [facility] Co de Phone Number [facility] [address] [facility]. [address] * (ABNORMAL) POC TCO2 (10/26/2024 3:31 AM EDT) POC TCO2, Arterial 19(L) 23 - 27 mmol/L 10/26/2024 4:11 AM EDT [facility] Blood, Arterial 10/26/2024 3 :31 AM EDT 10/26/2024 4:11 AM EDT us Harvey Domínguez III, MD POINT OF CARE TEST ORDERABLES Final Result Performing Organization Address City/[facility]/ZIP Co de Phone Number [facility] [address] [facility]. [address] * POC O2 SAT (10/26/2024 3:31 AM EDT) POC O2 Saturation, Arterial 97 95 - 98 % 10/26/2024 4:11 AM EDT [facility] Blood, Arterial 10/26/2024 3 :31 AM EDT 10/26/2024 4:11 AM EDT us Harvey Domínguez III, MD POINT OF CARE TEST ORDERABLES Final Result Performing Organization Address City/[facility]/ZIP Co de Phone Number [facility] [address] * (ABNORMAL) POC Base Excess (10/26/2024 3:31 AM EDT) POC Base Excess, Arterial -9(L) -2 - 3 mmol/L 10/26/2024 4:11 AM EDT [facility] Blood, Arterial 10/26/2024 3 :31 AM EDT 10/26/2024 4:11 AM EDT us Harvey Domínguez III, MD POINT OF CARE TEST ORDERABLES Final Result Performing Organization Address [facility] Co de Phone Number [facility] [address] [place] [address]. [address] * (ABNORMAL) POC HCO3 (10/26/2024 3:31 AM EDT) POC HCO3, Arterial 18(L) 22 - 26 mmol/L 10/26/2024 4:11 AM EDT [facility] Blood, Arterial 10/26/2024 3 :31 AM EDT 10/26/2024 4:11 AM EDT us Harvey Domínguez III, MD POINT OF CARE TEST ORDERABLES Final Result Performing Organization Address City/[facility] Co de Phone Number [facility] [address] [facility]. [address] * (ABNORMAL) POC PO2 (10/26/2024 3:31 AM EDT) POC pO2, Arterial 104(H) 80 - 100 mm Hg 10/26/2024 4:11 AM EDT [facility] Blood, Arterial 10/26/2024 3 :31 AM EDT 10/26/2024 4:11 AM EDT us Harvey Domínguez III, MD POINT OF CARE TEST ORDERABLES Final Result Performing Organization Address City/[facility] Co de Phone Number [facility] [address] [place] [address]. [address] * POC PCO2 (10/26/2024 3:31 AM EDT) POC pCO2, Arterial 42 35 - 45 mm Hg 10/26/2024 4:11 AM EDT [facility] Blood, Arterial 10/26/2024 3 :31 AM EDT 10/26/2024 4:11 AM EDT Harvey Domínguez III, MD POINT OF CARE TEST ORDERABLES Final Result Performing Organization Address [facility] de Phone Number [facility] [address] [facility]. [address] * (ABNORMAL) POC pH (10/26/2024 3:31 AM EDT) POC pH, Arterial 7.24(L) 7.35 - 7.45 10/26/2024 4:11 AM EDT [facility] Blood, Arterial 10/26/2024 3 :31 AM EDT 10/26/2024 4:11 AM EDT us Harvey Domínguez III, MD POINT OF CARE TEST ORDERABLES Final Result Performing Organization Address [facility] de Phone Number [facility] [address] [place] [address]. [address] * (ABNORMAL) TEG-Global With Lysis (Baseline TEG with LY30, Will NOT Show Heparin Effect) (53:31 AM EDT) Pathologist [facility] Citrated Kaolin Reaction Time (TEGLYSIS) 6.8 4.6 - 9.1 minutes 10/26/2024 5:02 AM EDT [facility] Citrated Rapid Teg Maximum Amplitude (TEGLYSIS) <40.0(L) 52.0 - 70.0 mm 10/26/2024 5:02 AM EDT [facility] Citrated Functional Fibrinogen Maximum Amplitude (TEGLYSIS) <4.0(L) 15.0 - 32.0 mm 10/26/2024 5:02 AM EDT [facility] Citrated Kaolin Percent Lysis (TEGLYSIS) 1.4 0.0 - 2.6 % 10/26/2024 5:02 AM EDT [facility] Whole Blood (Citrate) 10/26/2024 3:31 AM EDT 10/26/2024 3:40 AM EDT Eber Quinones MD LAB BLOOD ORDERABLES Fin al Result Performing Organization Address City/State/[facility] Co de Phone Number [facility] [address] * (ABNORMAL) CBC (10/26/2024 3:31 AM EDT) [facility] WBC 9.5 3.8 - 10.8 10E3/uL 10/26/2024 3:48 AM EDT [facility] RBC 3.68(L) 4.20 - 5.80 10E6/uL 10/26/2024 3:48 AM EDT [facility] Hemoglobin 11.5(L) 13.2 - 17.1 g/dL 10/26/2024 3:48 AM EDT [facility] Hematocrit 33.0(L) 38.5 - 50.0 % 10/26/2024 3:48 AM EDT [facility] MCV 89.6 80.0 - 100.0 fL 10/26/2024 3:48 AM EDT [facility] MCH 31.1 27.0 - 33.0 pg 10/26/2024 3:48 AM EDT [facility] MCHC 34.8 32.0 - 36.0 g/dL 10/26/2024 3:48 AM EDT [facility] RDW 19.3(H) 11.0 - 15.0 % 10/26/2024 3:48 AM EDT [facility] Platelets 67(L) 140 - 400 10E3/uL 10/26/2024 3:48 AM EDT [facility] MPV 7.9 7.5 - 11.5 fL 10/26/2024 3:48 AM EDT [facility] Whole Blood 10/26/2024 3:31 AM EDT 10/26/2024 3:40 AM EDT Eber Quinones MD LAB BLOOD ORDERABLES Fin al Result Performing Organization Address [facility] de Phone Number [facility] [address] [facility]. [address] * (ABNORMAL) Protime-INR (10/26/2024 3:31 AM EDT) Protime 27.0(H) 12.1 - 15.1 seconds 10/26/2024 3:51 AM EDT [facility] INR 2.4(H) 0.9 - 1.1 10/26/2024 3:51 AM EDT [facility] Comment: RECOMMENDED THERAPEUTIC RANGES USING INR : Stable oral anticoagulant therapy: 2.0 - 3.0 Mechanical prosthetic heart valve: 2.5 - 3.5 Recurrent acute myocardial infarction: 2.5 - 3.5 Plasma 10/26/2024 3:31 AM EDT 10/26/2024 3:40 AM EDT Eber Quinones MD LAB BLOOD ORDERABLES Fin al Result Performing Organization Address [facility] Co de Phone Number [facility] [address] [facility]. [address] * (ABNORMAL) Fibrinogen (10/26/2024 3:31 AM EDT) Fibrinogen 104(L) 218 - 406 mg/dL 10/26/2024 3:56 AM EDT [facility] Plasma 10/26/2024 3:31 AM EDT 10/26/2024 3:40 AM EDT Eber Quinones MD LAB BLOOD ORDERABLES Fin al Result [facility] [address] [place] [address], [facility] * Transfuse Fresh Frozen Plasma (10/26/2024 3:16 [...] 0.8 - 1.4 10/27/2024 6:51 AM EDT [facility] Comment: Test results may vary using [...] TEST ORDERABLES Final Result Performing Organization Address [facility] Co de Phone Number [facility] [address] * Transfuse Fresh Frozen Plasma (10/26/2024 1:41 AM EDT) us Ben Blake MD NURSING TREATMENT ORDERABLES - BLOOD ADMIN Final Result * Transfuse RBC (10/26/2024 1:40 AM EDT) us Ben Blake MD NURSING TREATMENT ORDERABLES - BLOOD ADMIN Final Result * POC Sample Type (10/26/2024 1:40 AM EDT) POC Sample Type Arterial 10/26/2024 2:32 AM EDT [facility] Blood, Arterial 10/26/2024 1 :40 AM EDT 10/26/2024 2:32 AM EDT us Harvey Domínguez III, MD POINT OF CARE TEST ORDERABLES Final Result Performing Organization Address City/[facility] Co de Phone Number [facility] [address] [id number], [place] * POC Anion Gap (10/26/2024 1:40 AM EDT) POC Anion Gap, Arterial 13 3 - 16 mmol/L 10/26/2024 2:32 AM EDT [facility] Blood, Arterial 10/26/2024 1 :40 AM EDT 10/26/2024 2:32 AM EDT us Harvey Domínguez III, MD POINT OF CARE TEST ORDERABLES Final Result [facility] [address] * POC Chloride (10/26/2024 1:40 AM EDT) Pathologist [facility] POC Chloride 104 98 - 110 mmol/L 10/26/2024 2:32 AM EDT [facility] Blood, Arterial 10/26/2024 1 :40 AM EDT 10/26/2024 2:32 AM EDT us Harvey Domínguez III, MD POINT OF CARE TEST ORDERABLES Final Result Performing Organization Address City/[facility]/ZIP Co de Phone Number [facility] [address] * (ABNORMAL) POC Hemoglobin (10/26/2024 1:40 AM EDT) Pathologist [facility] POC Hemoglobin 7.4(L) 14.0 - 18.0 g/dL 10/26/2024 2:32 AM EDT [facility] Blood, Arterial 10/26/2024 1 :40 AM EDT 10/26/2024 2:32 AM EDT us Harvey Domínguez III, MD POINT OF CARE TEST ORDERABLES Final Result Performing Organization Address City/[facility]/ZIP Co de Phone Number [facility] [address] * (ABNORMAL) POC hematocrit (10/26/2024 1:40 AM EDT) POC Hematocrit 22.0(L) 40 - 52 % 10/26/2024 2:32 AM EDT [facility] Blood, Arterial 10/26/2024 1 :40 AM EDT 10/26/2024 2:32 AM EDT us Harvey Domínguez III, MD POINT OF CARE TEST ORDERABLES Final Result Performing Organization Address City/[facility] Co de Phone Number [facility] [address] [facility]. [address] * (ABNORMAL) POC Lactate (10/26/2024 1:40 AM EDT) Pathologist [facility] POC Lactate 2.30(H) 0.50 - 2.20 mmol/L 10/26/2024 2:32 AM EDT [facility] Blood, Arterial 10/26/2024 1 :40 AM EDT 10/26/2024 2:32 AM EDT us Harvey Domínguez III, MD POINT OF CARE TEST ORDERABLES Final Result Performing Organization Address [facility] Co de Phone Number [facility] [address] [facility] * (ABNORMAL) POC Glucose (10/26/2024 1:40 AM EDT) POC Glucose, Arterial 116(H) 70 - 100 mg/dL 10/26/2024 2:32 AM EDT [facility] Blood, Arterial 10/26/2024 1 :40 AM EDT 10/26/2024 2:32 AM EDT us Harvey Domínguez III, MD POINT OF CARE TEST ORDERABLES Final Result Performing Organization Address City/[facility] Co de Phone Number [facility] [address] [facility] * (ABNORMAL) POC Ionized Calcium (10/26/2024 1:40 AM EDT) POC Ionized Calcium 4.10(L) 4.50 - 5.30 mg/dL 10/26/2024 2:32 AM EDT [facility] Blood, Arterial 10/26/2024 1 :40 AM EDT 10/26/2024 2:32 AM EDT us Harvey Domínguez III, MD POINT OF CARE TEST ORDERABLES Final Result Performing Organization Address City/[facility]/ZIP Co de Phone Number [facility] [address] [facility]. [address] * (ABNORMAL) POC Potassium (10/26/2024 1:40 AM EDT) Pathologist [facility] POC Potassium 2.6(LL) 3.5 - 5.3 mmol/L 10/26/2024 2:32 AM EDT [facility] Blood, Arterial 10/26/2024 1 :40 AM EDT 10/26/2024 2:32 AM EDT us Harvey Domínguez III, MD POINT OF CARE TEST ORDERABLES Final Result Performing Organization Address [facility] Co de Phone Number [facility] [address] [place] [address]. [address] * (ABNORMAL) POC Sodium (10/26/2024 1:40 AM EDT) Pathologist [facility] POC Sodium 135(L) 136 - 146 mmol/L 10/26/2024 2:32 AM EDT [facility] Blood, Arterial 10/26/2024 1 :40 AM EDT 10/26/2024 2:32 AM EDT us Harvey Domínguez III, MD POINT OF CARE TEST ORDERABLES Final Result Performing Organization Address City/[facility] Co de Phone Number [facility] [address] [facility]. [address] * (ABNORMAL) POC TCO2 (10/26/2024 1:40 AM EDT) POC TCO2, Arterial 19(L) 23 - 27 mmol/L 10/26/2024 2:32 AM EDT [facility] Blood, Arterial 10/26/2024 1 :40 AM EDT 10/26/2024 2:32 AM EDT us Harvey Domínguez III, MD POINT OF CARE TEST ORDERABLES Final Result Performing Organization Address City/[facility]/ZIP Co de Phone Number [facility] [address] * (ABNORMAL) POC O2 SAT (10/26/2024 1:40 AM EDT) POC O2 Saturation, Arterial 99(H) 95 - 98 % 10/26/2024 2:32 AM EDT [facility] Blood, Arterial 10/26/2024 1 :40 AM EDT 10/26/2024 2:32 AM EDT us Harvey Domínguez III, MD POINT OF CARE TEST ORDERABLES Final Result Performing Organization Address [facility] Co de Phone Number [facility] [address] [facility]. [address] * (ABNORMAL) POC Base Excess (10/26/2024 1:40 AM EDT) POC Base Excess, Arterial -7(L) -2 - 3 mmol/L 10/26/2024 2:32 AM EDT [facility] Blood, Arterial 10/26/2024 1 :40 AM EDT 10/26/2024 2:32 AM EDT us Harvey Domínguez III, MD POINT OF CARE TEST ORDERABLES Final Result Performing Organization Address City/[facility] Co de Phone Number [facility] [address] [facility]. [address] * (ABNORMAL) POC HCO3 (10/26/2024 1:40 AM EDT) POC HCO3, Arterial 18(L) 22 - 26 mmol/L 10/26/2024 2:32 AM EDT [facility] Blood, Arterial 10/26/2024 1 :40 AM EDT 10/26/2024 2:32 AM EDT us Harvey Domínguez III, MD POINT OF CARE TEST ORDERABLES Final Result Performing Organization Address City/[facility] Co de Phone Number [facility] [address] [facility]. [address] * (ABNORMAL) POC PO2 (10/26/2024 1:40 AM EDT) POC pO2, Arterial 145(H) 80 - 100 mm Hg 10/26/2024 2:32 AM EDT [facility] Blood, Arterial 10/26/2024 1 :40 AM EDT 10/26/2024 2:32 AM EDT us Harvey Domínguez III, MD POINT OF CARE TEST ORDERABLES Final Result Performing Organization Address [facility] Co de Phone Number [facility] [address] [place] [address]. [address] * (ABNORMAL) POC PCO2 (10/26/2024 1:40 AM EDT) POC pCO2, Arterial 33(L) 35 - 45 mm Hg 10/26/2024 2:32 AM EDT [facility] Blood, Arterial 10/26/2024 1 :40 AM EDT 10/26/2024 2:32 AM EDT us Harvey Domínguez III, MD POINT OF CARE TEST ORDERABLES Final Result Performing Organization Address City/[facility] Co de Phone Number [facility] [address] [facility]. [address] * POC pH (10/26/2024 1:40 AM EDT) POC pH, Arterial 7.35 7.35 - 7.45 10/26/2024 2:32 AM EDT [facility] Blood, Arterial 10/26/2024 1 :40 AM EDT 10/26/2024 2:32 AM EDT us Harvey Domínguez III, MD POINT OF CARE TEST ORDERABLES Final Result Performing Organization Address City/[facility]/ZIP Co de Phone Number [facility] [address] * Transfuse Fresh Frozen Plasma (10/26/2024 1:20 AM EDT) us Ben Blake MD NURSING TREATMENT ORDERABLES - BLOOD ADMIN Final Result * Transfuse RBC (10/26/2024 12:56 AM EDT) us Ben Blake MD NURSING TREATMENT ORDERABLES - BLOOD ADMIN Final Result * (ABNORMAL) POC INR (10/26/2024 12:41 AM EDT) Pathologist [facility] Prothrombin Time INR, POC 2.0(H) 0.8 - 1.4 10/27/2024 6:51 AM EDT [facility] Comment: Test results may vary using [...] TEST ORDERABLES Final Result Performing Organization Address City/[facility] Co de Phone Number [facility] [address] * POC Sample Type (10/26/2024 12:39 AM EDT) POC Sample Type Arterial 10/26/2024 1:38 AM EDT [facility] Blood, Arterial 10/26/2024 1 2:39 AM EDT 10/26/2024 1:38 AM EDT us Harvey Domínguez III, MD POINT OF CARE TEST ORDERABLES Final Result Performing Organization Address City/[facility] Co de Phone Number [facility] [address] [facility] * POC Anion Gap (10/26/2024 12:39 AM EDT) POC Anion Gap, Arterial 13 3 - 16 mmol/L 10/26/2024 1:38 AM EDT [facility] Blood, Arterial 10/26/2024 1 2:39 AM EDT 10/26/2024 1:38 AM EDT us Harvey Domínguez III, MD POINT OF CARE TEST ORDERABLES Final Result Performing Organization Address [facility] Co de Phone Number [facility] [address] [facility]. [address] * POC Chloride (10/26/2024 12:39 AM EDT) POC Chloride 103 98 - 110 mmol/L 10/26/2024 1:38 AM EDT [facility] Blood, Arterial 10/26/2024 1 2:39 AM EDT 10/26/2024 1:38 AM EDT us Harvey Domínguez III, MD POINT OF CARE TEST ORDERABLES Final Result Performing Organization Address City/[facility] Co de Phone Number [facility] [address] [facility] * (ABNORMAL) POC Hemoglobin (10/26/2024 12:39 AM EDT) POC Hemoglobin 7.9(L) 14.0 - 18.0 g/dL 10/26/2024 1:38 AM EDT [facility] Blood, Arterial 10/26/2024 1 2:39 AM EDT 10/26/2024 1:38 AM EDT us Harvey Domínguez III, MD POINT OF CARE TEST ORDERABLES Final Result Performing Organization Address [facility] Co de Phone Number [facility] [address] [facility]. [address] * (ABNORMAL) POC hematocrit (10/26/2024 12:39 AM EDT) POC Hematocrit 23.0(L) 40 - 52 % 10/26/2024 1:38 AM EDT [facility] Blood, Arterial 10/26/2024 1 2:39 AM EDT 10/26/2024 1:38 AM EDT us Harvey Domínguez III, MD POINT OF CARE TEST ORDERABLES Final Result Performing Organization Address [facility] Co de Phone Number [facility] [address] [facility]. [address] * POC Lactate (10/26/2024 12:39 AM EDT) Pathologist [facility] POC Lactate 1.39 0.50 - 2.20 mmol/L 10/26/2024 1:38 AM EDT [facility] Blood, Arterial 10/26/2024 1 2:39 AM EDT 10/26/2024 1:38 AM EDT us Harvey Domínguez III, MD POINT OF CARE TEST ORDERABLES Final Result Performing Organization Address City/[facility] Co de Phone Number [facility] [address] * (ABNORMAL) POC Glucose (10/26/2024 12:39 AM EDT) POC Glucose, Arterial 116(H) 70 - 100 mg/dL 10/26/2024 1:38 AM EDT [facility] Blood, Arterial 10/26/2024 1 2:39 AM EDT 10/26/2024 1:38 AM EDT us Harvey Domínguez III, MD POINT OF CARE TEST ORDERABLES Final Result Performing Organization Address City/[facility]/ZIP Co de Phone Number [facility] [address] * (ABNORMAL) POC Ionized Calcium (10/26/2024 12:39 AM EDT) POC Ionized Calcium 4.30(L) 4.50 - 5.30 mg/dL 10/26/2024 1:38 AM EDT [facility] Blood, Arterial 10/26/2024 1 2:39 AM EDT 10/26/2024 1:38 AM EDT us Harvey Domínguez III, MD POINT OF CARE TEST ORDERABLES Final Result Performing Organization Address City/[facility] Co de Phone Number [facility] [address] [facility]. [address] * (ABNORMAL) POC Potassium (10/26/2024 12:39 AM EDT) Pathologist [facility] POC Potassium 2.4(LL) 3.5 - 5.3 mmol/L 10/26/2024 1:38 AM EDT [facility] Blood, Arterial 10/26/2024 1 2:39 AM EDT 10/26/2024 1:38 AM EDT us Harvey Domínguez III, MD POINT OF CARE TEST ORDERABLES Final Result Performing Organization Address City/[facility] Co de Phone Number [facility] [address] [facility]. [address] * POC Sodium (10/26/2024 12:39 AM EDT) POC Sodium 136 136 - 146 mmol/L 10/26/2024 1:38 AM EDT [facility] Blood, Arterial 10/26/2024 1 2:39 AM EDT 10/26/2024 1:38 AM EDT us Harvey Domínguez III, MD POINT OF CARE TEST ORDERABLES Final Result Performing Organization Address City/[facility]/ZIP Co de Phone Number [facility] [address] * (ABNORMAL) POC TCO2 (10/26/2024 12:39 AM EDT) POC TCO2, Arterial 21(L) 23 - 27 mmol/L 10/26/2024 1:38 AM EDT [facility] Blood, Arterial 10/26/2024 1 2:39 AM EDT 10/26/2024 1:38 AM EDT us Harvey Domínguez III, MD POINT OF CARE TEST ORDERABLES Final Result Performing Organization Address [facility] Co de Phone Number [facility] [phone] [facility]. [address] * POC O2 SAT (10/26/2024 12:39 AM EDT) POC O2 Saturation, Arterial 98 95 - 98 % 10/26/2024 1:38 AM EDT [facility] Blood, Arterial 10/26/2024 1 2:39 AM EDT 10/26/2024 1:38 AM EDT us Harvey Domínguez III, MD POINT OF CARE TEST ORDERABLES Final Result Performing Organization Address City/[facility]/ZIP Co de Phone Number [facility] [phone]. [address] * (ABNORMAL) POC Base Excess (10/26/2024 12:39 AM EDT) POC Base Excess, Arterial -7(L) -2 - 3 mmol/L 10/26/2024 1:38 AM EDT [facility] Blood, Arterial 10/26/2024 1 2:39 AM EDT 10/26/2024 1:38 AM EDT Harvey Domínguez III, MD POINT OF CARE TEST ORDERABLES Final Result Performing Organization Address [facility] Co de Phone Number [facility] [address] [place]. [address] * (ABNORMAL) POC HCO3 (10/26/2024 12:39 AM EDT) POC HCO3, Arterial 20(L) 22 - 26 mmol/L 10/26/2024 1:38 AM EDT [facility] Blood, Arterial 10/26/2024 1 2:39 AM EDT 10/26/2024 1:38 AM EDT Harvey Domínguez III, MD POINT OF CARE TEST ORDERABLES Final Result Performing Organization Address [facility] Co de Phone Number [facility] [address] [facility]. [address] * (ABNORMAL) POC PO2 (10/26/2024 12:39 AM EDT) POC pO2, Arterial 117(H) 80 - 100 mm Hg 10/26/2024 1:38 AM EDT [facility] Blood, Arterial 10/26/2024 1 2:39 AM EDT 10/26/2024 1:38 AM EDT Harvey Domínguez III, MD POINT OF CARE TEST ORDERABLES Final Result Performing Organization Address [facility] Co de Phone Number [facility] [address] * (ABNORMAL) POC PCO2 (10/26/2024 12:39 AM EDT) POC pCO2, Arterial 46(H) 35 - 45 mm Hg 10/26/2024 1:38 AM EDT [facility] Blood, Arterial 10/26/2024 1 2:39 AM EDT 10/26/2024 1:38 AM EDT Harvey Domínguez III, MD POINT OF CARE TEST ORDERABLES Final Result Performing Organization Address City/[facility]/ZIP Co de Phone Number [facility] [address] * (ABNORMAL) POC pH (10/26/2024 12:39 AM EDT) POC pH, Arterial 7.24(L) 7.35 - 7.45 10/26/2024 1:38 AM EDT [facility] Blood, Arterial 10/26/2024 1 2:39 AM EDT 10/26/2024 1:38 AM EDT Harvey Domínguez III, MD POINT OF CARE TEST ORDERABLES Final Result Performing Organization Address [facility] Co de Phone Number [facility] [address] * Transfuse Platelets (10/26/2024 12:37 AM [...] AM EDT) Gram Stain Result Cytospin Results: [facility] Gram Stain Result Polymorphonuclear Leukocytes Seen; [facility] Gram Stain Result No Organisms Seen; [facility] Culture Result No Growth After 3 Days [facility] Surgical Swab ABDOMEN / Unknown 12:03 AM EDT Comment:2.) Ascites Anaerobhic culture Fungus culture Routine culture plus stain Narrative [facility] - 10/28/2024 9:38 PM EDT 2.) Ascites Anaerobhic culture Fungus culture Routine culture plus stain 2.) Ascites Harvey Domínguez III, MD MICROBIOLOGY - GENE RAL ORDERABLES Final Result [facility] [address] [place] [address], [facility] * Surgical Pathology Exam (10/26/2024 12:00 AM EDT) 10/26/2024 10/27/2024 Narrative [facility] - 10/26/2024 12:00 AM EDT CASE: [id number] PATIENT: BLAIR GILBERT Clinical History: Liver - kidney transplant Pre-Operative Diagnosis: Alcoholic cirrhosis of liver Post-Operative Diagnosis: Alcoholic cirrhosis of liver Specimen(s) Submitted: A. jamul liver CPT Code(s): 70186 X 1; 23042 X 5 Additional Information: FINAL DIAGNOSIS: A. 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 - Negative for neoplasm. - Increased hepatocellular iron deposition (3+; Modified Scheuer). Gall bladder: -Intramucosal and submucosal vascular congestion and hemorrhage. - Negative for dysplasia or malignancy. Gross Description: Received in formalin, labeled Blair Gilbert and jamul liver , is a 2338-gram, hepatectomy specimen [...] discrete masses or other lesions are identified. Sports Management Professor sections are submitted in cassettes [id number] as follows: A1: Hilar margins, en face. [...] Pathologist signing this report is located at [facility], [address] [place] [address], [facility] [phone], CLIA ID: [id number] Harvey Domínguez III, MD PATHOLOGY/CYTOLOGY ORDERABLES Final [...] (ABNORMAL) POC INR (10/25/2024 11:43 PM EDT) [facility] Prothrombin Time INR, POC 1.7(H) 0.8 - 1.4 10/27/2024 6:51 AM EDT [facility] Comment: Test results may vary using [...] TEST ORDERABLES Final Result Performing Organization Address City/[facility]/ZIP Co de Phone Number [facility] [address] * POC Sample Type (10/25/2024 11:40 PM EDT) [facility] POC Sample Type Arterial 10/25/2024 11:57 PM EDT [facility] Blood, Arterial 10/25/2024 1 1:40 PM EDT 10/25/2024 11:57 PM EDT Harvey Domínguez III, MD POINT OF CARE TEST ORDERABLES Final Result [facility] [address] * POC Anion Gap (10/25/2024 11:40 PM EDT) [facility] POC Anion Gap, Arterial 13 3 - 16 mmol/L 10/25/2024 11:57 PM EDT [facility] Blood, Arterial 10/25/2024 1 1:40 PM EDT 10/25/2024 11:57 PM EDT Harvey Domínguez III, MD POINT OF CARE TEST ORDERABLES Final Result Performing Organization Address City/[facility] Co de Phone Number [facility] [address] * POC Chloride (10/25/2024 11:40 PM EDT) POC Chloride 102 98 - 110 mmol/L 10/25/2024 11:57 PM EDT [facility] Blood, Arterial 10/25/2024 1 1:40 PM EDT 10/25/2024 11:57 PM EDT Harvey Domínguez III, MD POINT OF CARE TEST ORDERABLES Final Result Performing Organization Address [facility] Co de Phone Number [facility] [address] [facility]. [address] * (ABNORMAL) POC Hemoglobin (10/25/2024 11:40 PM EDT) POC Hemoglobin 6.6(L) 14.0 - 18.0 g/dL 10/25/2024 11:57 PM EDT [facility] Blood, Arterial 10/25/2024 1 1:40 PM EDT 10/25/2024 11:57 PM EDT Harvey Domínguez III, MD POINT OF CARE TEST ORDERABLES Final Result Performing Organization Address [facility] Co de Phone Number [facility] [address] * (ABNORMAL) POC hematocrit (10/25/2024 11:40 PM EDT) POC Hematocrit 19.0(L) 40 - 52 % 10/25/2024 11:57 PM EDT [facility] Blood, Arterial 10/25/2024 1 1:40 PM EDT 10/25/2024 11:57 PM EDT us Harvey Domínguez III, MD POINT OF CARE TEST ORDERABLES Final Result [facility] [address] * POC Lactate (10/25/2024 11:40 PM EDT) POC Lactate 1.36 0.50 - 2.20 mmol/L 10/25/2024 11:57 PM EDT [facility] Blood, Arterial 10/25/2024 1 1:40 PM EDT 10/25/2024 11:57 PM EDT Harvey Domínguez III, MD POINT OF CARE TEST ORDERABLES Final Result Performing Organization Address City/[facility] Co de Phone Number [facility] [address] * (ABNORMAL) POC Glucose (10/25/2024 11:40 PM EDT) POC Glucose, Arterial 101(H) 70 - 100 mg/dL 10/25/2024 11:57 PM EDT [facility] Blood, Arterial 10/25/2024 1 1:40 PM EDT 10/25/2024 11:57 PM EDT Harvey Domínguez III, MD POINT OF CARE TEST ORDERABLES Final Result [facility] [address] * POC Ionized Calcium (10/25/2024 11:40 PM EDT) POC Ionized Calcium 4.50 4.50 - 5.30 mg/dL 10/25/2024 11:57 PM EDT [facility] Blood, Arterial 10/25/2024 1 1:40 PM EDT 10/25/2024 11:57 PM EDT us Harvey Domínguez III, MD POINT OF CARE TEST ORDERABLES Final Result Performing Organization Address [facility] Co de Phone Number [address] * (ABNORMAL) POC Potassium (10/25/2024 11:40 PM EDT) POC Potassium 1.9(LL) 3.5 - 5.3 mmol/L 10/25/2024 11:57 PM EDT [facility] Blood, Arterial 10/25/2024 1 1:40 PM EDT 10/25/2024 11:57 PM EDT Harvey Domínguez III, MD POINT OF CARE TEST ORDERABLES Final Result Performing Organization Address [facility] Co de Phone Number [address] * (ABNORMAL) POC Sodium (10/25/2024 11:40 PM EDT) POC Sodium 135(L) 136 - 146 mmol/L 10/25/2024 11:57 PM EDT [facility] Blood, Arterial 10/25/2024 1 1:40 PM EDT 10/25/2024 11:57 PM EDT Harvey Domínguez III, MD POINT OF CARE TEST ORDERABLES Final Result Performing Organization Address City/[facility] Co de Phone Number [address] [facility]. [address] * (ABNORMAL) POC TCO2 (10/25/2024 11:40 PM EDT) POC TCO2, Arterial 21(L) 23 - 27 mmol/L 10/25/2024 11:57 PM EDT [facility] Blood, Arterial 10/25/2024 1 1:40 PM EDT 10/25/2024 11:57 PM EDT us Harvey Domínguez III, MD POINT OF CARE TEST ORDERABLES Final Result Performing Organization Address City/[facility]/ZIP Co de Phone Number [facility] [address] [place] [address]. [address] * POC O2 SAT (10/25/2024 11:40 PM EDT) POC O2 Saturation, Arterial 98 95 - 98 % 10/25/2024 11:57 PM EDT [facility] Blood, Arterial 10/25/2024 1 1:40 PM EDT 10/25/2024 11:57 PM EDT Harvey Domínguez III, MD POINT OF CARE TEST ORDERABLES Final Result Performing Organization Address [facility] Co de Phone Number [address] * (ABNORMAL) POC Base Excess (10/25/2024 11:40 PM EDT) POC Base Excess, Arterial -6(L) -2 - 3 mmol/L 10/25/2024 11:57 PM EDT [facility] Blood, Arterial 10/25/2024 1 1:40 PM EDT 10/25/2024 11:57 PM EDT Harvey Domínguez III, MD POINT OF CARE TEST ORDERABLES Final Result Performing Organization Address City/[facility]/ZIP Co de Phone Number [address] [facility]. [address] * (ABNORMAL) POC HCO3 (10/25/2024 11:40 PM EDT) POC HCO3, Arterial 20(L) 22 - 26 mmol/L 10/25/2024 11:57 PM EDT [facility] Blood, Arterial 10/25/2024 1 1:40 PM EDT 10/25/2024 11:57 PM EDT Harvey Domínguez III, MD POINT OF CARE TEST ORDERABLES Final Result [facility] [address] [facility]. [address] * (ABNORMAL) POC PO2 (10/25/2024 11:40 PM EDT) POC pO2, Arterial 107(H) 80 - 100 mm Hg 10/25/2024 11:57 PM EDT [facility] Blood, Arterial 10/25/2024 1 1:40 PM EDT 10/25/2024 11:57 PM EDT Harvey Domínguez III, MD POINT OF CARE TEST ORDERABLES Final Result Performing Organization Address [facility] Co de Phone Number [facility] [address] [facility]. [address] * POC PCO2 (10/25/2024 11:40 PM EDT) POC pCO2, Arterial 41 35 - 45 mm Hg 10/25/2024 11:57 PM EDT [facility] Blood, Arterial 10/25/2024 1 1:40 PM EDT 10/25/2024 11:57 PM EDT Harvey Domínguez III, MD POINT OF CARE TEST ORDERABLES Final Result Performing Organization Address City/[facility]/ZIP Co de Phone Number [facility] [address] * (ABNORMAL) POC pH (10/25/2024 11:40 PM EDT) POC pH, Arterial 7.29(L) 7.35 - 7.45 10/25/2024 11:57 PM EDT [facility] Blood, Arterial 10/25/2024 1 1:40 PM EDT 10/25/2024 11:57 PM EDT us Harvey Domínguez III, MD POINT OF CARE TEST ORDERABLES Final Result [facility] [address] * Urine culture (10/25/2024 11:08 PM EDT) Culture Result <1,000 cfu/mL [facility] Culture Result Skin/Urogeni rony Mckayla. No Further Workup. [facility] Newly Placed Berkowitz Urine URINE SPECIMEN / Unknown 10/25/2024 11:08 PM EDT Comment:urine culture Narrative [facility] - 10/28/2024 9:59 AM EDT urine culture urine culture Harvey Domínguez III, MD MICROBIOLOGY - GENE RAL ORDERABLES Final Result Performing Organization Address City/[facility]/ZIP Co de Phone Number [facility] [address] * X-ray Portable Chest (10/25/2024 10:19 [...] - 2.2 mmol/L 10/25/2024 10:39 PM EDT [facility] Plasma 10/25/2024 10:1 7 PM EDT 10/25/2024 10:17 PM EDT us Ben Blake MD LAB BLOOD ORDERABLES Final Re sult [facility] [address] * (ABNORMAL) Ferritin (10/25/2024 10:17 PM EDT) Ferritin 623.2(H) 23.9 - 336.2 ng/mL 10/25/2024 11:02 PM EDT [facility] Serum 10/25/2024 10:1 7 PM EDT 10/25/2024 10:17 PM EDT us Leandra Og MD LAB BLOOD ORDERABLES F inal Result [facility] [address] [facility]. [address] * Iron Studies (Iron + TIBC) (10/25/2024 10:17 PM EDT) Iron 128 50 - 212 ug/dL 10/25/2024 10:44 PM EDT [facility] % Iron Saturation SEE COMMENT 15.0 - 55.0 % 10/25/2024 10:44 PM EDT [facility] Comment:Unable to calculate result because contributing result outside reportable range.. TIBC SEE COMMENT 261 - 462 ug/dL 10/25/2024 10:44 PM EDT [facility] Comment:Unable to calculate result because contributing result outside reportable range.. Serum 10/25/2024 10:1 7 PM EDT 10/25/2024 10:17 PM EDT Leandra Og MD LAB BLOOD ORDERABLES F inal Result Performing Organization Address City/[facility]/ZIP Co de Phone Number [facility] [address] [facility]. [address] * PTH (10/25/2024 10:17 PM EDT) Pathologist [facility] PTH 36.0 12.0 - 88.0 pg/mL 10/25/2024 11:01 PM EDT [facility] Serum 10/25/2024 10:1 7 PM EDT 10/25/2024 10:17 PM EDT Leandra Og MD LAB BLOOD ORDERABLES F inal Result [facility] [address] [facility]. [address] * HIV 1+2 Antibody/Antigen with Reflex (10/25/2024 10:17 PM EDT) Pathologist [facility] HIV 1+2 AB/AGN Nonreactive Nonreactive 10/25/2024 11:03 PM EDT [facility] Serum 10/25/2024 10:1 7 PM EDT 10/25/2024 10:16 PM EDT [facility] - 10/25/2024 11:03 PM EDT \HIVRNR us Leandra Og MD LAB BLOOD ORDERABLES F inal Result Performing Organization Address [facility] Co de Phone Number [facility] [address] [place] [address]. [address] * Hepatitis B Core Antibody (10/25/2024 10:17 PM EDT) Hep B Core Total Ab Nonreactive Nonreactive 10/25/2024 11:07 PM EDT [facility] Comment:Health Department no tified in accordance with reportable infectious disease guidelines. Serum 10/25/2024 10:1 7 PM EDT 10/25/2024 10:17 PM EDT [facility] - 10/25/2024 11:07 PM EDT A nonreactive final interpretation indicates that anti-HBc antibodies were not detected in the sample; it is possible that the individual is not infected with HBV. us Leandra Og MD LAB BLOOD ORDERABLES F inal Result Performing Organization Address [facility] Co de Phone Number [facility] [address] [place] [address]. [address] * Hepatitis C Antibody (10/25/2024 10:17 PM EDT) HCV Ab Nonreactive Nonreactive 10/25/2024 11:16 PM EDT [facility] Comment:Health Department no tified in accordance with reportable infectious disease guidelines. Serum 10/25/2024 10:1 7 PM EDT 10/25/2024 10:17 PM EDT [facility] - 10/25/2024 11:16 PM EDT Antibodies to HCV not detected; does not exclude the possibility of exposure to HCV. us Leandra Og MD LAB BLOOD ORDERABLES F inal Result [facility] [address] [facility]. [address] * (ABNORMAL) Hepatitis B Surface Antibody, Quantitati (10/25/2024 10:17 PM EDT) HBSAB NUMBER 10.70(H) 0.00 - 9.99 mIU/mL 10/25/2024 11:52 PM EDT [facility] Hep B S Ab Equivocal (A) Nonreactive 10/25/2024 11:52 PM EDT [facility] Serum 10/25/2024 10:1 7 PM EDT 10/25/2024 10:17 PM EDT Leandra Og MD LAB BLOOD ORDERABLES F inal Result Performing Organization Address [facility]/ZIP Co de Phone Number [facility] [address] [facility]. [address] * Hepatitis B surface antigen (10/25/2024 10:17 PM EDT) Pathologist [facility] Hep B Surface Ag Nonreactive Nonreactive 10/25/2024 11:12 PM EDT [facility] Comment:Health Department no tified in accordance with reportable infectious disease guidelines. Serum 10/25/2024 10:1 7 PM EDT 10/25/2024 10:17 PM EDT Narrative [facility] - 10/25/2024 11:12 PM EDT Specimen is considered negative for HBsAg. Leandra Og MD LAB BLOOD ORDERABLES F inal Result [facility] [address] [facility]. [address] * Hepatitis A Antibody Total (10/25/2024 10:17 PM EDT) Anti-HAV Total (IgG + IgM) Nonreactive 10/25/2024 11:13 PM EDT [facility] Serum 10/25/2024 10:1 7 PM EDT 10/25/2024 10:17 PM EDT Narrative [facility] - 10/25/2024 11:13 PM EDT HAV antibodies not detected Leandra Og MD LAB BLOOD ORDERABLES F inal Result Performing Organization Address [facility] Co de Phone Number [facility] [address] [facility]. [address] * (ABNORMAL) Hepatic Function Panel (10/25/2024 10:17 PM EDT) Total Bilirubin 9.1(H) 0.0 - 1.5 mg/dL 10/25/2024 10:47 PM EDT [facility] Bilirubin, Direct 4.58(H) 0.00 - 0.40 mg/dL 10/25/2024 10:47 PM EDT [facility] AST 51(H) 13 - 39 U/L 10/25/2024 10:47 PM EDT [facility] ALT 23 7 - 52 U/L 10/25/2024 10:47 PM EDT [facility] Alkaline Phosphatase 144(H) 36 - 125 U/L 10/25/2024 10:47 PM EDT [facility] Total Protein 5.5(L) 6.4 - 8.9 g/dL 10/25/2024 10:47 PM EDT [facility] Albumin 3.5 3.5 - 5.7 g/dL 10/25/2024 10:47 PM EDT [facility] Bilirubin, Indirect 4.52(H) 0.00 - 1.10 mg/dL 10/25/2024 10:47 PM EDT [facility] Plasma 10/25/2024 10:1 7 PM EDT 10/25/2024 10:17 PM EDT us Leandra Og MD LAB BLOOD ORDERABLES F inal Result Performing Organization Address [facility]/ZIP Co de Phone Number [facility] [address] * (ABNORMAL) Renal Function Panel w/EGFR (10/25/2024 10:17 PM EDT) Sodium 137 133 - 146 mmol/L 10/25/2024 10:47 PM EDT [facility] Potassium 2.1(LL) 3.5 - 5.3 mmol/L 10/25/2024 10:47 PM EDT [facility] Comment:Critical Result K:2. 1 Called to and read back by: ALICIA CARCAMO RN at: 10/25/2024 22:47:45 by:NANCY Chloride 100 98 - 110 mmol/L 10/25/2024 10:47 PM EDT [facility] CO2 20(L) 21 - 33 mmol/L 10/25/2024 10:47 PM EDT [facility] Anion Gap 17(H) 3 - 16 mmol/L 10/25/2024 10:47 PM EDT [facility] BUN 74(H) 7 - 25 mg/dL 10/25/2024 10:47 PM EDT [facility] Creatinine 3.87(H) 0.60 - 1.30 mg/dL 10/25/2024 10:47 PM EDT [facility] Glucose 114(H) 70 - 100 mg/dL 10/25/2024 10:47 PM EDT [facility] Calcium 9.3 8.6 - 10.3 mg/dL 10/25/2024 10:47 PM EDT [facility] Phosphorus 5.9(H) 2.1 - 4.7 mg/dL 10/25/2024 10:47 PM EDT [facility] Albumin 3.5 3.5 - 5.7 g/dL 10/25/2024 10:47 PM T [facility] Osmolality, Calculated 307(H) 278 - 305 mOsm/kg 10/25/2024 10:47 PM EDT [facility] EGFR 19 10/25/2024 10:47 PM T [facility] Comment:As of 2021, the estimated GFR [...] ORDERABLES F inal Result Performing Organization Address City/[facility]/ZIP Co de Phone Number [facility] [address] [facility]. [address] * (ABNORMAL) APTT, NO ANTICOAGULANT (10/25/2024 10:17 PM EDT) aPTT 41.7(H) 25.5 - 35.0 seconds 10/25/2024 10:36 PM EDT [facility] Plasma 10/25/2024 10:1 7 PM EDT 10/25/2024 10:17 PM EDT Leandra Og MD LAB BLOOD ORDERABLES F inal Result Performing Organization Address City/[facility]/ZIP Co de Phone Number [facility] [address] [facility]. [address] * (ABNORMAL) Protime-INR (10/25/2024 10:17 PM EDT) Protime 21.7(H) 12.1 - 15.1 seconds 10/25/2024 10:35 PM EDT [facility] INR 1.8(H) 0.9 - 1.1 10/25/2024 10:35 PM EDT [facility] Comment: RECOMMENDED THERAPEUTIC RANGES USING INR : Stable oral anticoagulant therapy: 2.0 - 3.0 Mechanical prosthetic heart valve: 2.5 - 3.5 Recurrent acute myocardial infarction: 2.5 - 3.5 Plasma 10/25/2024 10:1 7 PM EDT 10/25/2024 10:17 PM EDT us Leandra Og MD LAB BLOOD ORDERABLES F inal Result [facility] [address] [place] [address], [facility] * (ABNORMAL) Differential (10/25/2024 10:17 PM EDT) Differential Comments See Note 10/25/2024 10:54 PM EDT [facility] Comment: _Platelets Appear Decreased _Platelet Morphology Normal Scan Result PERFORMED 10/25/2024 10:54 PM EDT [facility] Neutrophils Relative 79.8 40.0 - 80.0 % 10/25/2024 10:54 PM EDT [facility] Lymphocytes Relative 9.6(L) 15.0 - 45.0 % 10/25/2024 10:54 PM EDT [facility] Monocytes Relative 8.9 0.0 - 12.0 % 10/25/2024 10:54 PM EDT [facility] Eosinophils Relative 1.3 0.0 - 8.0 % 10/25/2024 10:54 PM EDT [facility] Basophils Relative 0.4 0.0 - 1.0 % 10/25/2024 10:54 PM EDT [facility] nRBC 0 0 - 0 /100 WBC 10/25/2024 10:54 PM EDT [facility] Neutrophils Absolute 4,948 1,520 - 8,640 /uL 10/25/2024 10:54 PM EDT [facility] Lymphocytes Absolute 595 570 - 4,860 /uL 10/25/2024 10:54 PM EDT [facility] Monocytes Absolute 552 0 - 1,296 /uL 10/25/2024 10:54 PM EDT [facility] Eosinophils Absolute 81 0 - 864 /uL 10/25/2024 10:54 PM EDT [facility] Basophils Absolute 25 0 - 108 /uL 10/25/2024 10:54 PM EDT [facility] PLT Morphology Platelet morphology appears normal 10/25/2024 10:54 PM EDT [facility] Whole Blood 10/25/2024 10:1 7 PM EDT 10/25/2024 10:17 PM EDT us Leandra Og MD LAB BLOOD ORDERABLES F inal Result [facility] [id number] [place] [address], [facility] * (ABNORMAL) CBC (10/25/2024 10:17 PM EDT) WBC 6.2 3.8 - 10.8 10E3/uL 10/25/2024 10:54 PM EDT [facility] RBC 2.40(L) 4.20 - 5.80 10E6/uL 10/25/2024 10:54 PM EDT [facility] Hemoglobin 8.3(L) 13.2 - 17.1 g/dL 10/25/2024 10:54 PM EDT [facility] Hematocrit 23.7(L) 38.5 - 50.0 % 10/25/2024 10:54 PM EDT [facility] MCV 98.9 80.0 - 100.0 fL 10/25/2024 10:54 PM EDT [facility] MCH 34.6(H) 27.0 - 33.0 pg 10/25/2024 10:54 PM EDT [facility] MCHC 35.0 32.0 - 36.0 g/dL 10/25/2024 10:54 PM EDT [facility] RDW 17.8(H) 11.0 - 15.0 % 10/25/2024 10:54 PM EDT [facility] Platelets 56(L) 140 - 400 10E3/uL 10/25/2024 10:54 PM EDT [facility] Comment: Specimen checked for clots. None detected. Slide Reviewed for PLT Clumps. None Seen. Platelet Estimate Decreased 10/25/2024 10:54 PM EDT [facility] MPV 8.1 7.5 - 11.5 fL 10/25/2024 10:54 PM EDT [facility] Whole Blood 10/25/2024 10:1 7 PM EDT 10/25/2024 10:17 PM EDT Narrative [facility] - 10/25/2024 10:54 PM EDT Peripheral blood smear was scanned per review criteria approved by the laboratory medical doctor. Leandra Og MD LAB BLOOD ORDERABLES F inal Result Performing Organization Address [facility] Co de Phone Number [facility] [address] [facility] [place] [place] [address], [facility] * Donor Specific Antibody (DSA) (10/25/2024 10:00 PM EDT) Pathologist [facility] AntiDonor Antibodies The request and specimen(s) for this test have been received and transported to the [facility] at [address] [place] [address]. The [facility] will report results directly to the client. 10/25/2024 10:20 PM EDT [facility] Comment:Testing performed by [facility], [address] [place] [address]. The [facility] report has been forwarded to the appropriate ordering location. Please refer to this report for patient results. Serum 10/25/2024 10:0 0 PM EDT 10/25/2024 10:20 PM EDT Leandra Og MD LAB BLOOD ORDERABLES F inal Result Performing Organization Address [facility] Co de Phone Number [facility] [address] [id number], [facility] * (ABNORMAL) Venous Blood Gas, Line/Syringe (10/25/2024 10:00 PM EDT) PH-Line Draw 7.38 7.32 - 7.42 10/25/2024 10:08 PM EDT [facility] PCO2-Line Draw 33(L) 41 - 51 mm Hg 10/25/2024 10:08 PM EDT [facility] PO2-Line Draw 33 25 - 40 mm Hg 10/25/2024 10:08 PM EDT [facility] HCO3-Line Draw 20(L) 24 - 28 mmol/L 10/25/2024 10:08 PM EDT [facility] CO2 Content-Line Draw 21(L) 25 - 29 mmol/L 10/25/2024 10:08 PM EDT [facility] Base Excess-Line Draw -5.0(L) -2.0 - 3.0 mmol/L 10/25/2024 10:08 PM EDT [facility] %HBO2-Line Draw 53.8 40.0 - 70.0 % 10/25/2024 10:08 PM EDT [facility] Carboxyhgb-Ludivina e Draw 1.9 % 10/25/2024 10:08 PM EDT [facility] Comment: CARBOXYHEMOGLOBIN (CO) REFERENCE RANGES: Non-Smokers: <2 % Smokers: <8 % TOXIC: >20 % Methemoglobin- Line Draw 0.2 0.0 - 1.5 % 10/25/2024 10:08 PM EDT [facility] Reduced Hemoglobin-Ludivina e Draw 44.1(H) 0.0 - 5.0 % 10/25/2024 10:08 PM EDT [facility] Venous, Line Draw 10/25/2024 10:00 PM EDT 10/25/2024 10:04 PM EDT us Leandra Og MD LAB BLOOD ORDERABLES F inal Result [facility] [address] * (ABNORMAL) POC Glucose Monitoring Device (10/25/2024 9:56 PM EDT) POC Glucose Monitoring Device 103(H) 70 - 100 mg/dL 10/25/2024 9:58 PM EDT [facility] Blood 10/25/2024 9:56 PM EDT 10/25/2024 9:57 PM EDT Harvey Domínguez III, MD POINT OF CARE TEST ORDERABLES Final Result [facility] [address] * ECG 12 lead (MUSE) (10/25/2024 9:34 PM EDT) 10/25/2024 9:34 PM EDT Narrative MUSE - 10/27/2024 10:08 AM EDT Ventricular Rate: 97 BPM Atrial Rate: 86 BPM QRS Duration: 106 ms QT: 532 ms QTc: 675 ms P [place]: 38 degrees R [place]: -29 degrees T [place]: 32 degrees Diagnosis Line: Critical Test Result: Long QTc , AV Block ^ SINUS RHYTHM WITH PREMATURE VENTRICULAR COMPLEXES ^ PROLONGED QT ^ NONSPECIFIC ST AND T WAVE CHANGES ^ ABNORMAL ECG ^ ^ Confirmed by MD HA, NOAHYAKady ([id number]) on 10/27/2024 10:08:26 AM Leandra Og MD ECG ORDERABLES Final Result Performing Organization Address City/[facility]/ZIP Co de Phone Number MUSE * Hepatitis C RNA, Quant Reflex to Genotyp (10/25/2024 8:18 PM EDT) Pathologist [facility] Units Not Detected IU/mL 10/27/2024 11:03 AM EDT [facility] Comment:Test methodology for HCV RNA quantification is an FDA-approved nucleic acid amplification assay. The Lower Limit of Quantitation (LLOQ) is 15 IU/mL. The linear range of the assay is 15-100,000,000 IU/mL. The Limit of Detection (LoD) is 12.0 IU/mL for EDTA plasma. The reference range is Not Detected. IU log10 See Note log 10 IU/mL 10/27/2024 11:03 AM EDT [facility] Comment:HCV RNA not detected . Plasma 10/25/2024 8:18 PM EDT 10/25/2024 10:27 PM EDT us Leandra Og MD LAB BLOOD ORDERABLES F inal Result [facility] [address] [place] [address], [facility] * Urinalysis w/Rfl to Microscopic (10/25/2024 8:18 PM EDT) Color, UA Yellow Yellow,Straw 10/25/2024 10:38 PM EDT [facility] Clarity, UA Clear Clear 10/25/2024 10:38 PM EDT [facility] Specific [place], UA 1.010 1.005 - 1.035 10/25/2024 10:38 PM EDT [facility] pH, UA 6.0 5.0 - 8.0 10/25/2024 10:38 PM EDT [facility] Protein, UA Negative Negative mg/dL 10/25/2024 10:38 PM EDT [facility] Glucose, UA Negative Negative mg/dL 10/25/2024 10:38 PM EDT [facility] Ketones, UA Negative Negative mg/dL 10/25/2024 10:38 PM EDT [facility] Bilirubin, UA Negative Negative 10/25/2024 10:38 PM EDT [facility] Blood, UA Negative Negative 10/25/2024 10:38 PM EDT [facility] Nitrite, UA Negative Negative 10/25/2024 10:38 PM EDT [facility] Urobilinogen, UA <2.0 0.2 - 1.9 mg/dL 10/25/2024 10:38 PM EDT [facility] Leukocyte Esterase, UA Negative Negative 10/25/2024 10:38 PM EDT [facility] Urine 10/25/2024 8:18 PM EDT 10/25/2024 10:35 PM EDT [facility] - 10/25/2024 10:38 PM EDT Microscopic testing is not performed when the dipstick is negative for blood, leukocyte, protein and nitrite. us Leandra gO MD URINE ORDERABLES Final Result Performing Organization Address City/State/[facility] Co de Phone Number [facility] [address] * Toxoplasma gondii antibody, IgG (10/25/2024 8:18 PM EDT) Toxoplasma Gondii IgG <3.0 0.0 - 7.1 IU/mL 10/27/2024 7:55 AM EDT [facility] Comment: Negative <7.2 Equivocal 7.2 - 8.7 Positive >8.7 Serum 10/25/2024 8:18 PM EDT 10/27/2024 8:06 AM EDT Narrative [facility] - 10/27/2024 8:06 AM EDT PERFORMED AT: [address] [id number] [employer] SCIENTIST: Bassam Khalil, PhD PHONE: [phone] Leandra Og MD LAB BLOOD ORDERABLES F inal Result [facility] [address] [facility]. [address] * Antibody Screen (10/25/2024 7:46 PM EDT) Antibody Screen Negative 10/25/2024 10:41 PM EDT [facility] Blood 10/25/2024 7:46 PM EDT 10/25/2024 9:54 PM EDT Narrative [facility] - 10/25/2024 10:44 PM EDT Testing performed by [facility] Transfusion Service Ben Blake MD BLOOD BANK TEST ORDERABLES Fi nal Result Performing Organization Address City/[facility]/ZIP Co de Phone Number [facility] [address] [facility]. [address] * ABO/Rh (10/25/2024 7:46 PM EDT) Pathologist [facility] ABO Grouping O 10/25/2024 10:23 PM EDT [facility] Rh Type Positive 10/25/2024 10:23 PM EDT [facility] Blood 10/25/2024 7:46 PM EDT 10/25/2024 9:54 PM EDT Ben Blake MD BLOOD BANK TEST ORDERABLES Fi nal Result Performing Organization Address City/[facility]/ZIP Co de Phone Number [facility] [address] [place] [address]. [address] * (ABNORMAL) TEG-Standard Global Hemostasis (Rapid TEG with Heparin Effect, Contains a Baseline TEG) (10/25/2024 7:46 PM EDT) Citrated Kaolin Reaction Time (TEGHEPARINASE) 8.4 4.6 - 9.1 minutes 10/25/2024 10:49 PM EDT [facility] Citrated Rapid Teg Maximum Amplitude (TEGHEPARINASE) <40.0(L) 52.0 - 70.0 mm 10/25/2024 10:49 PM EDT [facility] Citrated Functional Fibrinogen Maximum Amplitude (TEGHEPARINASE) 6.7(L) 15.0 - 32.0 mm 10/25/2024 10:49 PM EDT [facility] Citrated Kaolin W/Heparinase Reaction Time (TEGHEPARINASE) 8.1 4.3 - 8.3 minutes 10/25/2024 10:49 PM EDT [facility] Citrated Kaolin K-Time (TEGHEPARINASE) 2.5(A) 0.8 - 2.1 minutes 10/25/2024 10:49 PM EDT [facility] Citrated Kaolin Angle (TEGHEPARINASE) 65.7(A) 63.0 - 78.0 degrees 10/25/2024 10:49 PM EDT [facility] Citrated Kaolin Maximum Amplitude (TEGHEPARINASE) <40.0(L) 52.0 - 69.0 mm 10/25/2024 10:49 PM EDT [facility] Citrated Functional Fibrinogen- Fibrinogen Level (TEGHEPARINASE) 159.5(L) 278.0 - 581.0 mg/dL 10/25/2024 10:49 PM EDT [facility] Whole Blood (Citrate) 10/25/2024 7:46 PM EDT 10/25/2024 10:15 PM EDT us Ben Blake MD LAB BLOOD ORDERABLES Final Re sult [facility] [address] [place] [address], [facility] documented in this encounter Visit Diagnoses Diagnosis Acute kidney injury superimposed on CKD ([facility])- Primary Prophylactic antibiotic Encounter for long-term (current) use of antibiotics Prolonged QT interval Nonspecific abnormal electrocardiogram (ECG) (EKG) Immunosuppression ([facility]) Abdominal pain, unspecified abdominal location documented [...] EDT 250 mLs 100 mL/hr Rate/Dose [facility] 10/26/2024 10:16 PM EDT 83.3 m [...] in sodium chloride 0.9% 100 mL IVPB ([id number]) 1 g, Intravenous, at 200 mL/hr, Every 6 hours scheduled (4 times per day), First dose on Sun10/26/24 at 0630, For 2 days, Dosage may need to be adjusted for renal dysfunction. Full dose is 1g IV q6h Use [id number] Adapter - Mix Thoroughly Before Administration New [...] Once underlying shock sufficiently improved, defined as [id number] r requirement ? 0.2 mcg/kg/min (norepinephrine equivalent) [...] Eyes, 2 times daily, First dose on Bolt 10/26/24 at 1230 Given 10/31/2024 10:29 AM EDT Given 10/27/2024 8:46 PM EDT Given 10/27/2024 8:54 AM EDT famotidine (PF) (PEPCID) injection 20 mg 20 mg, Intravenous, Every 12 hours scheduled (2 times per day), First dose on Bolt 10/26/24 at 0900 Given 10/27/2024 9:10 AM EDT 20 mg Given 10/26/2024 7:59 PM EDT 20 mg Given 10/26/2024 9:20 AM EDT 20 mg FentaNYL (SUBLIMAZE) 2500 mcg (10 mcg/mL) in NSS 250 mL IV infusion Intravenous, at 0-20 mL/hr, Continuous, Starting on Bolt 10/26/24 at 0630, If the patient is [...] 6:48 PM EDT 1 mg HYDROmorphone (DILAUDID) OCCUPATIONAL HEALTH NURSING DIRECTOR 6 mg/30 mL syringe *Standard Conc* Intravenous, Continuous, Starting on Sun10/27/24 at 1730, HIGH ALERT MEDICATION New Syringe/Cartridge 10/28/2024 3:59 AM EDT New Syringe/Cartridge 10/27/2024 7:09 PM EDT HYDROmorphone (DILAUDID) OCCUPATIONAL HEALTH NURSING DIRECTOR 6 mg/30 mL syringe *Standard Conc* Intravenous, [...] in sodium chloride 0.9 % 100 mL [id number] IVPB 50 mg, Intravenous, at 100 mL/hr, Every 24 hours, First dose on Sun10/27/24 at 1400, PROTECT FROM LIGHT FLUSH LINE w/NSS PRIOR TO ADMINISTRATION Use [id number] Adapter - Mix Thoroughly Before Administration Rate/Dose [...] paralyzed: Do not titrate - follow policy [id number]. Start infusion if unable to maintain goal [...] documented as of this encounter Care Teams Weight Loss Sales Consultant Relationship Specialty Start Date End Date Enedina Mcguire NP [address] [place] [address] PCP - General Internal Medicine 10/05/24 lAicia Pantoja, RN Txp Post Coordinator Transplant Hepatology 10/28/24 documented as of this encounter
--- OUTSIDE RECORDS SUMMARY | 2024-10-25 22:30 | XMS_ITS | Encounter Summary ---
Author Organization [facility] Address [address] [place] [address] Care Team Providers Care Sales Account Manager Name Role Phone Enedina Mcguire NP Primary Care Provider [phone] Source Comments This information has been disclosed [...] release of HIV test results or diagnoses. [id number] Reason for Visit * Auth/Cert (Routine) Specialty Diagnoses / Procedures Referred By Shane hernadez Referred To Contact Surgical Intensive Care Diagnoses Liver transplant recipient (CMS-HCC) cirrhosis and CKD Procedures LIVER-KIDNEY TRANSPLANT [facility] SICU [address] [place] [address] Phone: tel: Referral ID Status Reason Start Date Expiration Date Visits Re quested Visits Authorized [id number] 1 Encounter Details Date Type Department Care Team (Late st Contact Info) Description 10/25/2024 10:30 PM EDT - 10/26/2024 6:12 AM EDT Surgery [facility] PERIOP [address] [place] [address] Semaj Mcnair III, MD [address] [facility] [address] [place] [address] LIVER TRANSPLANT Surgery Details Date/Time Status Location OR Service Patient Class Case Class Case Type Trauma Case? 10/25/2024 10:30 PM Posted OR 17 Transplant Surgery Admit Non Trauma Panel 1 Procedure LRB Anes Op Region Wound Class Comments LIVER TRANSPLANT N/A General Abdomen Clean Contami nated Surgeon Surgeon Role Service Panel Semaj Mcnair III, MD Primary Transplant 1 Sveta Judge MD Fellow Transplant 1 documented in this encounter Social History [...] the past 12 months has th e XDx, gas, oil, or water jaeyos threatened to shut off services in your [...] the past 12 m [facility], were you homeless or living [...] Sign Reading Time Taken Comments Blood Pressure 120/59 10/25/2024 9:56 PM EDT Pulse 104 10/26/2024 6:05 AM EDT Temperature 37.9 C (100.2 F) 10/26/2024 6:05 AM EDT Respiratory Rate 13 10/26/2024 6:05 AM EDT Oxygen Saturation 100% 10/26/2024 6:05 AM EDT Inhaled Oxygen Concentration 100% 10/26/2024 6 :05 AM EDT Weight 122.5 kg (270 lb) 10/25/2024 9:02 PM EDT Height 193 cm (6' 4 ) 10/25/2024 9:02 PM EDT Body Mass Index 32.6 10/26/2024 11:26 AM EDT documented in this encounter Discharge Summaries * Shay Plata MD - 11/02/2024 2:04 PM EDT [facility] Liver Transplant Surgical Service Inpatient Discharge Summary Patient: Blair Gilbert : 1985 CSN: [id number] Date of Admission: 10/25/2024 Date of Discharge: [...] Case IDs Date Procedure Surgeon Location Status [id number] 10/25/24 LIVER TRANSPLANT Semaj Mcnair III, MD OR Comp [id number] 10/27/24 Donor Kidney Transplant , Back Bench [...] EXAM: US ABDOMEN LIMITED EXAM: US DUPLEX DJV-[id number]-AVTTJED COMPLETE INDICATION: Post-op liver transplant COMPARISON: None [...] visualized secondary to poor acoustic windows. [place] right kidney measures 11.6 cm in length. [...] 30 tablet Refills: 0 naloxone 4 mg/actuation [place] Commonly known as: NARCAN Apply 1 [...] Your Medications These medications were sent to [facility] NAA Baum - [address] [facility] Mya 105Mal Deya Roque [address] mycophenolate 250 mg capsule tacrolimus 1 MG capsule These medications were sent to [facility] [address] [place] [address] Hours: Sunday - Sunday: 8:00AM - 6:00PM [...] Case IDs Date Procedure Surgeon Location Status [id number] 10/25/24 LIVER TRANSPLANT Semaj Mcnair III, MD OR Comp [id number] 10/27/24 Donor Kidney Transplant , Back Bench [...] discharge. NEURO/PAIN - Patient placed on Dilaudid IT CORPORATE RECRUITER once extubated, then transitioned to multi-modal pain [...] Ureteral stentis scheduled for removal on 11/25 [facility] - PT/OT evaluated patient and recommended Home PT/OT, outpatient PT/OT only available. ENDO - A1C is 5.0. Pt was not on diabetic regimen prior to arrival. Patient developed steroid-induced hyperglycemia 2/2 steroid regimen. Discharged home on the following regimen: HDSSI. Patient met w/ executive talent acquisition consultant prior to discharge. HEME - Post-operatively, monitored [...] Patient and family received post-transplant education from stroke coordinator as well as medication teaching from [...] 11/04/2024 8:40 AM LTRA SURGERY, [facility] LTRA HOX HOX 11/04/2024 10:10 AM LTRA HEPATORENAL HOX LTRA HOX HOX 11/25/2024 9:[address] [facility] 12/02/2024 2:00 PM Bossman [address]man [address] [facility] M[facility] M[facility] 02/25/2025 10:50 AM Bruno Gonzalez MD KTSP HOX HOX Kenyetta Hartman, MS-4 [facility] SHAY PLATA MD 11/02/2024 12:50 PM [...] up appointments. Diet: Regular diet Drain/Dressing/Wound Care: [place] will be removed in clinic approximately 3-4 [...] kept under 2 gm/day. Please discuss withyour patient access coordinator if you have any question about appropriate dose to take. Other Instructions: Call post-liver transplant clinic with questions [phone] or call [facility] at [phone] and ask for the liver stroke coordinator test lead application testing if you experience any of the following: [...] hours Follow-Up: You will need Labs every Mon/Thur - your coordinator will review the results with you and make any necessary medication adjustments. Follow up appts in liver transplant clinic in outpatient building on 3rd floor. Future Appointments Date Time Provider Department Center 11/04/2024 8:40 AM LTRA SURGERY, [facility] LTRA HOX HOX 11/04/2024 10:10 AM LTRA HEPATORENAL HOX LTRA HOX HOX 11/25/2024 9:[address] [facility] 12/02/2024 2:00 [address] [facility] 02/25/2025 10:50 AM [...] AM EDT 10/27/2024 lancets (ACCU-CHEK SOFTCLIX LANCETS) Misc Use to [...] AM EDT 10/30/2024 naloxone (NARCAN) 4 mg/actuation [place] Apply 1 spray in one nostril [...] tablet 2 11/02/2024 10:20 AM EDT 10/27/2024 documented as of this encounter Progress Notes * Shaji Gamino, PharmD - 11/02/2024 10:34 AM EDT Transplant Pharmacy Note Discharge Medication Education, Evaluation and Transition Name: Blair Gilbert Discharge prescriptions were dispensed from Discharge Pharmacy, other than tacrolimus and mycophenolate which were dispensed through [facility] per insurance requirements. Patient's confirms those [...] fair Expected caregiver involvement?: is primary med manager oracle database Need for additional education in clinic?: routine reinforcement only Future medications to be obtained from, if known (select one): Tac/MMF to be filled from [facility] Financial concerns (if any): no Discharge Medication List as of 11/02/2024 5:17 PM START taking these medications Details acetaminophen (TYLENOL) 325 MG tablet Take 3 tablets (975 mg total) by mouth every 8 hours., Starting 10/27/2024, Normal, Disp-200 tablet, R-0 alcohol swabs PadM Use as instructed., Normal, Disp-200 each, R-1 blood sugar diagnostic (GLUCOSE BLOOD) [facility] Use to test blood sugar up to 4 times a day., Normal, Disp-100 strip, R-11 blood-glucose meter (TRUE METRIX GLUCOSE METER) [facility] [...] for 24 days. Last day 11/26/24, Starting 11/02/2024, Until Sun11/26/2024, Normal, Disp-24 tablet, R-0 methocarbamoL (ROBAXIN) 500 MG tablet Take 2 tablets (1,000 mg total) by mouth 3 times a day., Starting Tish 10/30/2024, Normal, Disp-180 tablet, R-0 mycophenolate (CELLCEPT) 250 mg capsule Take 2 capsules (500 mg total) by mouth 2 times a day., Starting 10/27/2024, Normal, Disp-120 capsule, R-5 tacrolimus (PROGRAF) 1 MG capsule Take 6 capsules (6 mg total) by mouth 2 times a day. Use as directed, Starting 11/02/2024, Normal, Disp-600 capsule, R-5 sodium bicarbonate 650 [...] Disp-30 tablet, R-0 naloxone (NARCAN) 4 mg/actuation [place] Apply 1 spray in one nostril [...] Comments: Reason for Stopping: Eduardo Gamino, Pharm.D., [facility] Solid Organ Transplant Clinical Specialist Contact via [employer] Secure Chat * Froylan Hendrickson MD - 11/01/2024 8:04 AM EDT Liver Transplant Surgery Progress Note Name: Blair Gilbert CSN: [id number] Date: 11/01/2024 8:06 AM OR Date: 10/25/2024 [...] at 10/31/2024 4:38 PM EDT US Duplex Nyu-Hzv-Oufpodl Comp Result Date: 10/31/2024 IMPRESSION: RIGHT UPPER [...] 10/25/2024 - 10/27/2024. Plan: Liver transplant recipient ([facility]) [Z94.4] Neuro: - Multimodal pain [...] 3:24 PM EDT TXP - Follow Up [facility] Medical Nutrition Therapy Transplant Brief Note Diet Order/Nutrition Support: Diet/Nutrition Orders Diet Regular(7) high calorie 3000 kcal a day Frequency: Effective Now Number of Occurrences: Until Specified Order Questions: Additional restrictions: high calorie 3000 kcal a day Suicide/Behavior Risk Modification? No Dietary nutrition supplements Frequency: TID Number of Occurrences: Until Specified Order Questions: Select Supplement: Boost VHC- very high calorie protein supplement ([facility] only) Pertinent Information: Pt seen for [...] Based on DBW of 93.1 kg Kcals/day: 4103-4590 (25-30 kcals/kg) Protein g/day: 140-190 (1.5-2.0 g/kg) [...] Dietitian - Solid Organ Transplant Contact via [employer] Chat * Keon Dobson - 10/31/2024 2:35 PM EDT [facility] Spiritual Care Volunteer Visit PATIENT NAME: Blair Gilbert ROOM:[id number] Mandaeism Affiliation:Gnosticism Blair Gilbert was visited by a volunteer today. No needs requiring a visit from a staff warp hand were expressed at that time. Care Provided: Communion, Prayer/ blessing Please page our service at [phone] as needs arise for patient and/or family. Fr Dean Dobson Gnosticism warp hand Spiritual Care Dept * Brittany Horne PT [...] issued by OT: Long-handled sponge, Sock aid, Guide, Other (comment) Equipment issued by OT comment: leg header dock Assessment Assessment: Decreased ADL status, Decreased IADLs, [...] Pt will complete bathing assessment and transfer jail goal to be met in: 2 weeks [...] Hypertension Other hyperlipidemia 07/26/2024 Renal cell carcinoma ([facility]) Thrombocytopenia ([facility]) Thyroid disease Past Surgical History Past Surgical [...] List Diagnosis Decompensated cirrhosis ([facility]) Acute kidney injury superimposed on CKD ([facility]) Alcohol use disorder Metabolic encephalopathy Hypertension Other hyperlipidemia Thrombocytopenia ([facility]) Renal mass, left Abdominal pain Hypokalemia CKD (chronic kidney disease) stage 4, GFR 15-29 ml/min ([facility]) Metabolic acidosis with normal anion gap and bicarbonate losses GERD (gastroesophageal reflux disease) Hypothyroidism Itching Anemia BRBPR (bright red blood per rectum) SBP (spontaneous bacterial peritonitis) ([facility]) C Diff Diarrhea C. difficile diarrhea [...] 0659 10/31/24 07 - 11/01/24 0659 Shift 2030-4611 0533-1787 8258-4786 24 Hour Total 8442-3971 5983-9545 8370-1572 24 Hour Total INTAKE P.O. 240 240 P.O. 240 240 Shift Total(mL/kg) 240(1.9) 240(1.9) OUTPUT Urine(mL/kg/hr) 1850(1.8) 600(0.6) 600(0.6) 3050(1) 350 350 Urine 800 009 299 6024 350 350 Urine Occurrence 2 x 2 [...] with further concerns Lavell Kramer MD 10/31/[phone] * Priti Geiger CNP - 10/31/2024 10:06 AM EDT Liver Transplant Surgery Progress Note Name: Blair Gilbert CSN: [id number] Date: 10/31/2024 10:06 AM OR Date: 10/25/2024 [...] 10/28/24 1109 LACTATE 0.3* Imaging US Duplex Jwc-Zqo-Enbetvn Comp Result Date: 10/28/2024 IMPRESSION: ABDOMINAL ULTRASOUND [...] 10/25/2024 - 10/27/2024. Plan: Liver transplant recipient ([facility]) [Z94.4] Neuro: - Multimodal pain [...] Transplant Nephrology Progress Note Patient: Blair Gilbert [id number] 8025/U8025 Date of Admit: 10/25/2024. 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 Lauren Santos, DNP, MUSIC THERAPIST [employer]CHO[employer] SYSTEM, BODY SPECIALIST- Transplant Nephrology [phone] Preferred contact: secure chat The HPI, ROS, [...] OR oxyCODONE Intake/Output last 3 shifts: Date 10/29/24699 - 10/30/24 0659 10/30/24699 - 10/31/24 0659 Shift 1314-1832 3474-5723 6965-7457 24 Hour Total 4050-5147 9898-6058 6613-8644 24 Hour Total INTAKE P.O. 240 240 480 P.O. 240 240 480 IV Piggyback 87.2 87.2 Volume (mL) (micafungin (MYCAMINE) 50 mg in sodium chloride 0.9 % 100 mL Uden4Geu IVPB) 87.2 87.2 Shift Total(mL/kg) 240(2) 327.2(2.7) 567.2(4.4) OUTPUT Urine(mL/kg/hr) 600(0.6) 1175(1.2) 450(0.4) 2225(0.7) 550 550 Output (mL) (IUC (Berkowitz) Triple-lumen (3-Way) 18 Fr.) 600 1472 589 9853 550 550 Drains 175 245 100 520 [...] month of prophylaxis Lavell Kramer MD 10/30/[phone] * Priti Geiger CNP - 10/30/2024 10:36 AM EDT Liver Transplant Surgery Progress Note Name: Blair Gilbert CSN: [id number] Date: 10/30/2024 10:37 AM OR Date: 10/25/2024 [...] 1109 LACTATE 0.5 0.3* Imaging US Duplex Nsv-Zsw-Nnledox Comp Result Date: 10/28/2024 IMPRESSION: ABDOMINAL ULTRASOUND [...] 10/25/2024 - 10/27/2024. Plan: Liver transplant recipient ([facility]) [Z94.4] Neuro: - Multimodal pain [...] Transplant Nephrology Progress Note Patient: Blair Gilbert [id number] 8025/[id number] Date of Admit: 10/25/2024. 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 Lauren Santos, DNP, MUSIC THERAPIST [employer], BODY SPECIALIST- Transplant Nephrology [phone] Preferred contact: secure chat The HPI, ROS, [...] EDT Pt seen, examined, and discussed with AUTOMOTIVE TECHNOLOGY INSTRUCTOR on 10/30/2024. reviewed the chart including the labs and imaging studies. My additional comments below. 39 y.o. 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 Admit Weight: 270 lb (122.5 kg) Current [...] (36.6 ??C) Heart Rate: [94-107] 98 Resp: [05-01] 14 BP: (130-155)/(76-105) 147/97 Arterial Line BP: [...] Based on DBW of 93.1 kg Kcals/day: 9633-5049 (25-30 kcals/kg) Protein g/day: 140-190 (1.5-2.0 g/kg) [...] Organ Transplant Contact via Epic Chat * Anita Crystal, PT - 10/29/2024 2:04 PM EDT Physical Therapy Initial Assessment Name: Blair Gilbert : 1985 Attending Physician: Semaj Mcnair III, MD Admission Diagnosis: Liver transplant recipient (CMS-HCC) [Z94.4] Date: 10/29/2024 Room: [place] [address] [address] Reviewed Pertinent hospital course: Yes Hospital Course [...] with functional mobility at: 10 or less Parts Specialist Goal : Pt will ambulate 250' mod [...] [facility] Thyroid disease Past Surgical History Past Surgical [...] superimposed on CKD ([facility]) Alcohol use disorder Metabolic encephalopathy [...] III, MD Admission Diagnosis: Liver transplant recipient ([facility]) [Z94.4] Date: 10/29/2024 Room: [place] [address] [address] Reviewed Pertinent hospital course: Yes Hospital Course [...] Intervention(s): Ambulation/increased activity;Repositioned Therapist reported pain to: potato chip sacking machine operator Oxygen Supplemental Oxygen Supplemental Oxygen: None (Room [...] distance ambulation in prep for IADL task Parts Specialist Goal : Pt will complete bathing assessment and transfer jail goal to be met in: 2 weeks [...] List Diagnosis Decompensated cirrhosis ([facility]) Acute kidney injury superimposed on CKD ([facility]) Alcohol use disorder Metabolic encephalopathy Hypertension Other hyperlipidemia Thrombocytopenia ([facility]) Renal mass, left Abdominal pain Hypokalemia CKD (chronic kidney disease) stage 4, GFR 15-29 ml/min ([facility]) Metabolic acidosis with normal anion gap and bicarbonate losses GERD (gastroesophageal reflux disease) Hypothyroidism Itching Anemia BRBPR (bright red blood per rectum) SBP (spontaneous bacterial peritonitis) ([facility]) C Diff Diarrhea C. difficile diarrhea Neck pain with history of cervical spinal surgery * Caron Santos CNP - 10/29/2024 10:30 AM EDT Images from the original note were not included. Transplant Nephrology Progress Note Patient: Blair Gilbert [id number] SICU-28/USIC-28 Date of Admit: 10/25/2024. LOS: 4 days. 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 Lauren Santos, SAM[place], MUSIC THERAPIST [employer], BODY SPECIALIST- Transplant Nephrology [phone] Preferred contact: secure chat The HPI, ROS, [...] seen, examined, and discussed with EZEKIEL on 10/29/2024. reviewed the chart including the labs and imaging studies. My additional comments below. 39 y.o. 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 Findings communicated to Michela Szymansik RN via telephone by Ag Garcia MD [...] 10/25/2024 - 10/27/2024. Plan: Liver transplant recipient ([facility]) [Z94.4] Neuro: - Multimodal pain [...] SQH, SCDs DISPO: floor KENYETTA HARTMAN, MS4 [facility] 10:08 AM 10/29/2024 Cosigned by [...] Sanchez MD PhD Transplant Surgery * Royer Wells RRT - 10/29/2024 9:53 AM EDT EKG PERFORMED [...] 3 shifts: Date 10/28/24699 - 10/29/2465810/29/24699 - 10/30/24658 Shift 9721-7456 1931-8576 9560-3266 24 Hour Total 0074-9057 6682-7977 4766-0054 24 Hour Total INTAKE P.O. 240 0 [...] IV infusion) 253.9 374.7 775.6 1404.2 Blood 8914 822 4128 Albumin 750 750 Volume (Transfuse RBC Transfusion Rate: Per dept routine) 310 310 Volume (Transfuse RBC Transfusion Rate: Per dept routine) 271 271 IV Piggyback 918.4 961 89 7593.4 Volume (mL) (micafungin (MYCAMINE) 50 mg in sodium chloride 0.9 % 100 mL Mfpx9Juc IVPB) 99.9 99.9 Volume (mL) (albumin human [...] month of prophylaxis Lavell Kramer MD 10/29/[phone] * John Moreno MD - 10/29/2024 6:47 AM EDT SURGICAL ICU PROGRESS NOTE 10/29/2024 6:47 AM Name: Blair Gilbert [facility]: [id number] HPI: Blair Gilbert is a 39 y.o. [...] (100 mg total) by mouth daily. Yes 5at 9:00 PM ursodioL (ACTIGALL) 300 mg capsule [...] to 4 times a day. DEXCOM G7 ELECTRONICS WARFARE TECHNICIAN Misc Use reader as directed. DEXCOM G7 [...] times a day. naloxone (NARCAN) 4 mg/actuation [place] Apply 1 spray in one nostril [...] 37 37 35 PO2ART 245* 182* 92 SSC6HIZ 22 21* 21* BEART -4.2* -4.8* -4.6* [...] at baseline or with provocation, shows no tkvbv-jn-uudb atrial level shunt. - Pulmonary arteries: Systolic [...] Home pantoprazole 40mg daily, continue Last BM: SILO OPERATOR - suppository today Bowel regimen: Miralax [...] results for input(s): TEGANGLE , TEGKTIME , ORWIDTOY92 , TEGMAXAMPL , TEGRTIME , CBMZ in [...] in sodium chloride 0.9 % 100 mL Jrjv2Xzy IVPB 50 mg Every 24 hours 10/27/2024 -- Admin Instructions: PROTECT FROM LIGHT FLUSH LINE w/NSS PRIOR TO ADMINISTRATION Use Vjoi3Stm Adapter - Mix Thoroughly Before Administration Route: [...] instability DC today Arterial Line? R radial Leedey- DC today Urinary Catheter? Berkowitz - Reason: [...] BID Continuous Infusions: HYDROmorphone 6 mg/30 mL IT CORPORATE RECRUITER norepinephrine 4 mcg/min (10/27/248) sodium chloride 0.45% (1/2 NS) 120 mL/hr [...] 0659 10/28/24 07 - 10/29/24 0659 Shift 3506-0842 3033-2701 5550-3451 24 Hour Total 1249-0964 5933-3179 2751-2453 24 Hour Total INTAKE P.O. 0 120 [...] in sodium chloride 0.9 % 100 mL Cfxd5Atv IVPB) 100 100 Volume (mL) (albumin human 5%) 126 126 Volume (mL) (potassium chloride (KCl)/Sterile water 50 mL 20 mEq/50 mL IVPB 20 mEq) 100 100 Volume (mL) (AMPicillin 1 g in sodium chloride 0.9% 100 mL IVPB (Onyi7Dnr)) 100.1 57 42.9 200 Volume (mL) (mycophenolate (CELLCEPT) 500 mg in dextrose 5% in water (D5W) 50 mL IVPB) 50 5.3 55.3 Shift Total(mL/kg) 2079.3(17) 1161(9.5) 787.3(6.4) 4027.6(32.9) OUTPUT Urine(mL/kg/hr) 2195(2.2) 1000(1) 900(0.9) 4095(1.4) 490 490 Urine 360 360 Output (mL) (IUC (Berkowitz) Triple-lumen (3-Way) 18 Fr.) 1835 0865 900 2050 490 490 Emesis/NG output 50 50 Drainage [...] month of prophylaxis Lavell Kramer MD 10/28/[phone] * Caron Santos CNP - 10/28/2024 9:00 AM EDT Images from the original note were not included. Transplant Nephrology Progress Note Patient: Blair Gilbert [id number] SICU-28/USIC- Date of Admit: 10/25/2024. LOS: 3 days. 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 Lauren Santos, DNP, MUSIC THERAPIST [employer], BODY SPECIALIST- Transplant Nephrology [phone] Preferred contact: secure chat The HPI, ROS, [...] EDT Pt seen, examined, and discussed with AUTOMOTIVE TECHNOLOGY INSTRUCTOR on 10/28/2024. reviewed the chart including the labs and imaging studies. My additional comments below. 39 y.o. 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 S/p SLK 10/25-10/26 Has great UOP 4.2L Aaron Gonzalez MD, MEd, FASN * Shay Plata MD - 10/28/2024 7:41 AM EDT Liver Transplant Surgery Progress Note Name: Blair Gilbert CSN: [id number] Date: 10/28/2024 11:05 AM OR Date: 10/25/2024 - 10/27/2024 Subjective: 1 Day Post-Op Received one unit pRBCs overnight On low dose levo this morning Increasing tachycardia Reports worsening pain, on IT CORPORATE RECRUITER Tolerated sips of clears No nausea/vomiting, no [...] Oral BID Continuous: HYDROmorphone 6 mg/30 mL IT CORPORATE RECRUITER norepinephrine Stopped (10/28/24 0637) sodium chloride 0.9 [...] at 10/27/2024 10:38 AM EDT US Duplex Xmv-Afc-Otrjzal Comp Result Date: 10/27/2024 IMPRESSION: RIGHT UPPER [...] 10/25/2024 - 10/27/2024. Plan: Liver transplant recipient ([facility]) [Z94.4] Neuro: - Multimodal pain control: dilaudid IT CORPORATE RECRUITER, tylenol, robaxin. PRN dilaudid for breakthrough CV: [...] SCDs DISPO: SICU SHAY PLATA MD, MS4 [facility] Surgery 11:05 AM 10/28/2024 Cosigned by Lydia [...] 10/28/2024 6:17 AM Name: Blair Gilbert CSN: [id number] HPI: Blair Gilbert is a 39 y.o. [...] to 4 times a day. DEXCOM G7 ELECTRONICS WARFARE TECHNICIAN Misc Use reader as directed. DEXCOM G7 [...] times a day. naloxone (NARCAN) 4 mg/actuation [place] Apply 1 spray in one nostril [...] Oral BID Continuous: HYDROmorphone 6 mg/30 mL IT CORPORATE RECRUITER insulin regular in 0.9 % sodium chloride [...] 37 37 35 PO2ART 245* 182* 92 BBK1EOP 22 21* 21* BEART -4.2* -4.8* -4.6* [...] at baseline or with provocation, shows no hzwkd-ch-sbly atrial level shunt. - Pulmonary arteries: Systolic [...] while intubated,convert to PO today Last BM: SILO OPERATOR Bowel regimen: Miralax today, hold senna [...] ml IV Fluids: HYDROmorphone 6 mg/30 mL IT CORPORATE RECRUITER insulin regular in 0.9 % sodium chloride, [...] - Needs K today RENAL/ Recent Labs 10/27/24171210/28/24410/28/24412 BUN 61* 59* 58* CREATININE 2.42* 2.42* 2.24* A/P: # Hepatorenal Syndrome # S/p DDKT Baseline Cr 3.5 - Admission Cr 3.87, current 2.24 with downtrending BUN - Sodium bicarb 1300mg TID, hold - Labs per transplant protocol - US 10/27 with appropriate flows, no concerns - 3 day berkowitz - nh 10/30 - Makes urine at baseline - Has never required dialysis - Continue berkowitz SKIN/MUSCULOSKELETAL Exam: Warm, dry; no significant edema A/P: ADDY HEMATOLOGIC Labs: Recent Labs 10/27/24171210/28/24410/28/24412 WBC 4.9 4.9 4.5 HGB 7.4* 6.7* 7.3* HCT 21.4* 19.2* 21.0* MCV 87.6 87.8 87.8 PLT 47* 45* 38* No results for input(s): ANTIXALMWHEP in the last 72 hours. Recent Labs 10/27/24 0816 10/27/24171210/28/24412 INR 1.2* 1.1 1.1 PROTIME 16.2* 15.2* 14.6 No results for input(s): TEGANGLE , TEGKTIME , TSEUZEAX29 , TEGMAXAMPL , TEGRTIME , CBMZ in [...] in sodium chloride 0.9% 100 mL IVPB (Ogpk7Nop) (Completed) 1 g Every 6 hours scheduled 10/26/2024 10/28/2024 Admin Instructions: Dosage may need to be adjusted for renal dysfunction. Full dose is 1g IV q6h Use Mfty9Tda Adapter - Mix Thoroughly Before Administration Notes to Pharmacy: On order checker estimated creatinine clearance is 35.9 mL/min (A) [...] in sodium chloride 0.9 % 100 mL Noqj9Yti IVPB 50 mg Every 24 hours 10/27/2024 -- Admin Instructions: PROTECT FROM LIGHT FLUSH LINE w/NSS PRIOR TO ADMINISTRATION Use Zizx0Cks Adapter - Mix Thoroughly Before Administration Route: Intravenous A/P: # Leukocytosis Likely reactive in s/o surgery - Continue perioperative Abx, ampicillin, micafungin (06/15 QTC, see ID note from 10/27 for [...] R IJ Mac Arterial Line? R radial Leedey Urinary Catheter? Berkowitz - Reason: Adequate I/O [...] vascular, and plastic and reconstructive surgery Leida Ruiz, Prasad N, Elizabeth MACDONALD, et al. Completion [...] the Caprini Risk Score of 10 and [facility] transplant protocol, I recommend discharging on [...] the patient as needed. Hillary Fernandes PharmD, [facility] Solid Organ Transplant Clinical Specialist Contact via [employer] Secure Chat Preferred O. [phone] * Chinedu Almeida RRT - 10/27/2024 1:10 [...] Yes MD Order No SBT No Yes [place] Coma Scale > 8 Yes Lab Results Component Value Date PHART 7.36 10/27/2024 PCO2 37 10/27/2024 PO2ART 245 (H) 10/27/2024 QVV4DFL 22 10/27/2024 BEART -4.2 (L) 10/27/2024 IUU4CSM 96.5 10/27/2024 M3ZWFSLS 100 10/27/2024 Based on this SBT assessment [...] Surgery Progress Note Name: Blair Gilbert CSN: [id number] Date: 10/27/2024 11:40 AM OR Date: 10/25/2024 - 10/27/2024 Subjective: * Day of Surgery * Remains intubated in SICU Sedated but appropriately nods to questions No acute distress Objective: BP 100/48 Pulse 89 Temp 99 ??F (37.2 ??C) ([place]) Resp 9 Ht 6' 4 (1.93 m) [...] 1057) sodium chloride 0.9 % Stopped (10/27/24 025) sodium chloride 0.9 % Stopped (10/27/24 025) sodium chloride 0.9 % Stopped (10/27/24 025) sodium chloride 0.9 % Stopped (10/27/24 0901) [...] at 10/27/2024 10:38 AM EDT US Duplex Uti-Cpd-Teuofjb Comp Result Date: 10/27/2024 IMPRESSION: RIGHT UPPER [...] 10/27/2024. Problem List[1] Plan: Liver transplant recipient ([facility]) [Z94.4] Neuro: - Propofol/fentanyl CV: [...] SQH, SCDs DISPO: SICU KENYETTA HARTMAN, MS4 [facility] Surgery 11:40 AM 10/27/2024 [1] Patient Active Problem List Diagnosis Decompensated cirrhosis ([facility]) Acute kidney injury superimposed on CKD ([facility]) Alcohol use disorder Metabolic encephalopathy Hypertension Other hyperlipidemia Thrombocytopenia ([facility]) Renal mass, left Abdominal pain Hypokalemia CKD (chronic kidney disease) stage 4, GFR 15-29 ml/min ([facility]) Metabolic acidosis with normal anion gap and bicarbonate losses GERD (gastroesophageal reflux disease) Hypothyroidism Itching Anemia BRBPR (bright red blood per rectum) SBP (spontaneous bacterial peritonitis) ([facility]) C Diff Diarrhea C. difficile diarrhea [...] 10/27/2024 7:16 AM Name: Blair Gilbert CSN: [id number] HPI: Blair Gilbert is a 39 y.o. [...] for 30 days. FREESTYLE NIDA 3 READER Misc Use 1 each as directed Use as [...] times a day. naloxone (NARCAN) 4 mg/actuation [place] Apply 1 spray in one nostril [...] (10/27/24 0252) sodium chloride 0.9 % Stopped (10/27/24251) sodium chloride 0.9 % Stopped (10/27/24251) vasopressin 0.03 Units/min (10/27/24 0140) PRN Meds: [...] 0013) PCO2: 37 (10/27/2412) PO2: (!) 137 (10/27/24 0013) HCO3: (!) 20 (10/27/2412) Base Excess: (!) -6.4 (10/27/2412) SaO2: 100 (10/27/24 001) Recent Labs 10/26/24 0610 10/26/24 1048 10/27/24 001 PHART 7.27* 7.37 7.32* PCO2 47* 36 37 PO2ART 127* 91 137* MIZ5KTI 21* 22 20* BEART -5.4* -3.9* -6.4* [...] at baseline or with provocation, shows no gtbba-dg-txys atrial level shunt. - Pulmonary arteries: Systolic [...] IV pantoprazole while intubated, NPO Last BM: SILO OPERATOR Bowel regimen: Senna/Miralax when able Nausea: [...] 10/27/2024 0715 Gross per 24 hour Intake 15558.82 ml Output 7060 ml Net 6224.82 ml [...] 0458) norepinephrine, Last Rate: 10 mcg/min (10/27/24 0706) propofol, Last Rate: 30 mcg/kg/min (10/27/24 0713) sodium chloride 0.9 %, Last Rate: Stopped (10/27/24 0252) sodium chloride 0.9 %, Last Rate: Stopped (10/27/24 025) sodium chloride 0.9 %, Last Rate: Stopped (10/27/24 025) vasopressin, Last Rate: 0.03 Units/min (10/27/24 0140) [...] protocol - 3 day berkowitz - dc 06/19 - Makes urine at baseline - Has [...] results for input(s): TEGANGLE , TEGKTIME , RMUUFMVI79 , TEGMAXAMPL , TEGRTIME , CBMZ in [...] in sodium chloride 0.9% 100 mL IVPB (Bmje0Uno) 1 g Every 6 hours scheduled Admin Instructions: Dosage may need to be adjusted for renal dysfunction. Full dose is 1g IV q6h Use Hpeu0Tyt Adapter - Mix Thoroughly Before Administration Notes to Pharmacy: On order checker estimated creatinine clearance is 35.9 mL/min (A) (based on SCr of 3.87 mg/dL (H)). Route: Intravenous Linked Group 1: Placed in And Linked Group cefTRIAXone (ROCEPHIN) 2 g in sodium chloride 0.9 % 100 mL Zisi4Ucp Continuous - One Step Medications Only 10/27/2024 [...] Solid Organ Transplant Clinical Specialist Contact via Better Weekdays Preferred * Simeon Guzman RN - 10/27/2024 [...] 10/26/2024 0725 Gross per 24 hour Intake 41004.32 ml Output 2075 ml Net 62272.32 ml Consitutional: Intubated/sedated HEENT: Mucous membranes moist [...] SQH CODE: Full Code DISPO: SICU Quinten Nasir MD General Surgery Resident Cosigned by Semaj [...] History and Physical Patient: Blair Gilbert CSN: [id number] History CC: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 naloxone (NARCAN) 4 mg/actuation [place] Apply 1 spray in one nostril [...] Resource Strain: Low Risk (07/09/2024) Received from [facility] Overall Financial Resource Strain (CARDIA) Difficulty [...] No Physical Activity: Unknown (07/14/2024) Received from [facility] Exercise Vital Sign Days of Exercise per Week: Patient unable to answer Minutes of Exercise per Session: Not on file Stress: Patient Unable To Answer (07/14/2024) Received from [facility] [place] of Occupational Health - Occupational Stress Questionnaire Feeling of Stress : Patient unable to answer Social Connections: Patient Unable To Answer (07/14/2024) Received from [facility] Social Connection and Isolation Panel [NHANES] [...] -- 5.4 ALBUMIN 3.2* 3.1* Invalid input(s): [facility] Other labs: Imaging Studies No results found. [...] admitted to SICU post-op. LEANDRA OG MD [facility] Surgery Liver Transplant Pager: [phone] 8:24 PM 10/25/2024 Cosigned by Semaj [...] Name: Blair Gilbert Date: 1985 Billing #: [id number] Date of Procedure: 10/25/2024 Diagnosis: End Stage Renal Disease Procedure: 1. Donor Kidney Transplant 2. Back Bench Preparation Donor Kidney 3. Baseline Kidney transplant biopsy 4. Insertion of Indwelling Stent 5. Removal of Perihepatic packing Surgeons * Flaquito Ba MD Nail Tech MD Shayan Findings: Low Hockey stick incision [...] donor was ABO O and UNOS ID [id number], Match Run [id number] ([facility]). This donor was a Donor after cardiac [...] was then wanded with the lap detection pet care assistant. The incision was ex tented [...] and closure. Flaquito Ba MD Transplant Surgeon box printing machine operator * Flaquito Ba MD - 10/27/2024 6:15 AM EDT TRANSPLANT KIDNEY with bile duct reconstruction Brief Op Note Blair Gilbert 10/27/2024 Pre-op Diagnosis: Acute kidney injury superimposed on CKD (CMS-HCC) [N17.9, N18.9] Post-op Diagnosis: same Procedure(s): TRANSPLANT KIDNEY Surgeon(s): MD Semaj Washington III, MD Anesthesia: General Endotracheal Staff: Team Psychologist: Chinedu Quinn RN Scrub Person: ST Angela Fellow: Kemar Sahni MD 2nd Team Psychologist: Marty Clark RN 3rd Team Psychologist: Candis Mcdaniel RN FINDINGS Berkowitz 3 day Drains: Intraabdominal (perihepatic) UNOS ID [id number], Match Run [id number] Kid WIT 27 min Kid CIT 33 [...] (Berkowitz) Triple-lumen (3-Way) 18 Fr. (Active) Status Terrell Drainage 10/26/241999 Collection Container Standard drainage bag [...] Washington III, MD Anesthesia: General Endotracheal Staff: Team Psychologist: Chinedu Quinn RN Relief Team Psychologist: Michela Amos RN Relief Scrub: Stephani Blake RN Scrub Person: ST Angela Fellow: Kemar Sahni MD 2nd Team Psychologist: Marty Clark RN 3rd Team Psychologist: Candis Mcdaniel RN Estimated Blood Loss: 300 [...] (Berkowitz) Triple-lumen (3-Way) 18 Fr. (Active) Status Terrell Drainage 10/26/241999 Collection Container Standard drainage bag [...] day Drains: 2 Intraabdominal (perihepatic) UNOS ID [id number], Match Run [id number] Donor: young DCD NRP Kid WIT 27 [...] AM EDT [facility] PATIENT NAME: BLAIR [place] DATE OF : 1985 CSN: [id number] PHYSICIAN: Semaj Mcnair III, MD ADMIT DATE: 10/25/2024 DICTATED BY: Semaj Mcnair III, MD SURGERY DATE: 10/27/2024 OPERATIVE REPORT SURGEON: Semaj Mcnair III, MD E BUSINESS CONSULTANT SURGEON: Kemar Sahni MD. PREOPERATIVE DIAGNOSIS: Open [...] were made hemostatic with the argon beam farm worker. We assessed the flows of the portal [...] a mucocele formation. We then performed a toeq-qo-ddrn choledochocholedochostomy in an end to end fashion [...] small umbilicalhernia that was closed with a mqacrl-qy-kqavy 0 PDS suture. At this point, we [...] complications. SEMAJ MCNAIR III, MD RCQ/AQ JOB#: [id number] * Semaj Mcnair III, MD - 10/26/2024 7:00 AM EDT Patient Name: Blair Gilbert Date: 1985 Billing #: [id number] Date of Procedure: 10/25/2024 - 10/26/2024 Diagnosis: Chronic Hepatic Failure without coma Procedure: 1. Orthotopic Liver Transplant 2. Back Bench Preparation Donor Liver 3. Temporary portocaval shunt 4. Perihepatic packing for control of hemorrhage 5. Placement of external choledochal stent 6. Temporary abdominal closure Attending surgeons: Semaj Mcnair III, MD Nail Tech Surgeon(s): Sveta Judge MD Findings: Whole organ placed in piggyback fashion with suprahepatic cava of donor to common orifice of all three hepatic veins for IVC anastomosis. Donor main portal vein to recipient main portal vein. Donor common hepatic artery to recipient right hepatic artery. Temporary abdominal with perihepatic packingfor control of hemorrhage. Externalization of bile duct with 8 Bengali pediatric feeding tube. Portal Flow Modulation No [...] This donor was ABO O and UNOSID [id number], Match Run [id number]. This was a 42-year-old donation after circulatory [...] After completion of the outflow anastomosis, a [place] clamp was placed across the donor suprahepatic [...] do a temporary abdominal closure. An 8 Bengali pediatric feeding tube was brought through the [...] Sveta Alves III, MD Anesthesia: General Staff: Team Psychologist: Mak Maher RN; Marty Clark RN Scrub Person: ST Angela Resident: Thuy Leon MD flow nurse: Jose Daniel Arana RRT Estimated Blood Loss: [...] Number of days: 5 Surgery Information: -UNOS#: [id number] -ABO: O to O -Recipient: SLK candidate [...] 1:19 PM EDTAssociated Order(s): IP CONSULT TO TERRITORY ACCOUNT MANAGER [facility] Transplant Discharge Education Note Assessment: Received referral [...] Gomez, MSN, RN, NPD- Diabetes Education Office [phone] Schedule: M-F 8:00am-4:30pm * Ben Weiss, RD - 10/27/2024 4:06 PM EDTAssociated Order(s): IP CONSULT TO NUTRITION SERVICES; IP CONSULT TO NUTRITION SERVICES TXP - Initial [facility] Medical Nutrition Therapy Reason(s) for Completion: Physician/Nursing [...] I/O: +23.2L net volume. Last BM Date: (SILO OPERATOR). Admit Weight: 270 lb (122.5 kg) Current Weight: (!) 270 lb (122.5 kg) Pertinent Labs: Recent Labs 10/26/24 1642 10/27/24 0013 10/27/24 1440 WBC 10.0 5.0 5.8 HGB 10.5* 8.5* 7.5* HCT 30.2* 23.9* 21.5* PLT 48* 35* 50* Recent Labs 10/26/24 1642 10/27/24 0013 10/27/24 0800 NA 142 141 142 K 3.3* 3.2* 3.0* CL 109 109 109 CO2 23 21 21 BUN 63* 64* 59* CREATININE 2.85* 2.58* 2.54* GLUCOSE 127* 126* 111* CALCIUM 8.9 8.9 9.1 MG 2.0 1.8 1.8 PHOS 4.4 5.3* 5.5* Recent Labs 10/26/24 1642 10/27/24 0013 10/27/24 0800 AST 374* 157* 88* ALT 458* 261* 149* BILITOT 2.3* 1.6* 1.3 BILIDIRECT 1.85* 1.17* 0.93* ALKPHOS 39 26* 26* ALBUMIN 3.0* 3.0* 2.8* 2.8* 3.0* 3.0* Recent Labs 10/26/24 1642 10/27/24 0013 10/27/24 [...] Based on DBW of 93.1 kg Kcals/day: 5072-1464 (25-30 kcals/kg) Protein g/day: 140-190 (1.5-2.0 g/kg) [...] Dietitian - Solid Organ Transplant Contact via [employer]panda [employer] Software Chat * Lavell Kramer MD - 10/27/2024 11:09 AM EDTAssociated Order(s): INPATIENT CONSULT TO TRANSPLANT INFECTIOUS DISEASES Infectious Disease Consultation Patient: Blair Gilbert CSN: [id number] Assessment & Plan 39 y.o. M s/p [...] blood cx's if febrile Lavell Kramer MD [phone] Chief Complaint Long Qtc History of Present [...] Resource Strain: Low Risk (07/09/2024) Received from [facility] Overall Financial Resource Strain (CARDIA) Difficulty [...] No Physical Activity: Unknown (07/14/2024) Received from [facility] Exercise Vital Sign Days of Exercise per Week: Patient unable to answer Minutes of Exercise per Session: Not on file Stress: Patient Unable To Answer (07/14/2024) Received from [facility] [place] of Occupational Health - Occupational Stress Questionnaire Feeling of Stress : Patient unable to answer Social Connections: Patient Unable To Answer (07/14/2024) Received from [facility] Social Connection and Isolation Panel [NHANES] [...] 1003) sodium chloride 0.9 % Stopped (10/27/24 025) sodium chloride 0.9 % Stopped (10/27/24 025) sodium chloride 0.9 % Stopped (10/27/24 025) sodium chloride 0.9 % Stopped (10/27/24 0901) vasopressin 0.03 Units/min (10/27/24 1000) PRN:dextrose 10% in water OR dextrose 10% in water, fentanyl (SUBLIMAZE) IV infusion AND fentaNYL, glucose, HYDROmorphone OR HYDROmorphone, sodium chloride 0.45% (05/15 NS) Vital Signs Temp: [98.2 ??F (36.8 [...] to 4 times a day. DEXCOM G7 ELECTRONICS WARFARE TECHNICIAN Misc Use reader as directed. DEXCOM G7 [...] times a day. naloxone (NARCAN) 4 mg/actuation [place] Apply 1 spray in one nostril [...] CKD IIIb/IV: - Presumed s/t HRS - Computer Peripheral Equipment Operator: Yovanny Curran at [facility] Allograft Function: S/p SLK 10/25- (kidney preemptive) [...] 10/27/2024 1500 Gross per 24 hour Intake 57557.28 ml Output 5950 ml Net 6403.28 ml Heme/Anemia: WBC: 5.8 Goal HgB 10-12 mg/dL Hgb: 7.5 Plt 50 Iron: 128 on 10/25/2024 Ferritin 623.2 on 10/25/2024 TIBC: SEE COMMENT on 10/25/2024 % Iron Saturation: SEE COMMENT on 10/25/2024 RbmkhquM55: No results found for requested labs within [...] - Monitor renal function. No indications for MANAGER CARDIAC CATH. Good UOP - Noted KT US WNL [...] preliminary until attending attestation. Lauren Santos, SAM[place], MUSIC THERAPIST [employer], BODY SPECIALIST- Transplant Nephrology [phone] Preferred contact: secure chat [1] Allergies Allergen [...] Aaron Gonzalez MD, MEd, FASN * Marcellus Anup, FLORAL ARRANGER, INTERVENTIONAL TECHNOLOGIST - 10/27/2024 10:21 AM EDT HEALTH Care Management/Social Work Assessment Patient Information Patient Name: Blair Gilbert Hospital Day: 2 Inpatient/Observation: Inpatient Admit Date: 10/25/2024 Admission Diagnosis: Liver transplant recipient ([facility]) [Z94.4] Attending provider: Semaj Mcnair III, MD PCP: Enedina Mcguire NP Home Pharmacy: [facility] [address] [place] [address] [address] [facility] [address] [facility] [address] Issues related to obtaining medications: N/A Payor Information Medical Insurance Coverage: Payor: [facility] / Plan: [facility] GLOBAL [...] of CD Treatement at [facility] Do you need Substance Abuse Treatment Resources?: [...] resides with his spouse at their one thebes home in [place]. 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 Spouse explained that he will complete a 6 month virtual program post transplant but could not recall the name of the program. Patient has no current tobacco use. No previous need or recommendation for home health care services and no previous placements at prison facility and/or inpatient rehab program. Patient has [...] as appropriate. NUBIA Escalera, RONALDO Phone Number: [phone] * John Moreno MD - 10/26/2024 3:41 AM EDT SURGICAL ICU CONSULT NOTE 10/26/2024 3:41 AM Name: Blair Gilbert [facility]: [id number] HPI: Blair Gilbert is a 39 y.o. [...] at 9:00 PM naloxone (NARCAN) 4 mg/actuation [place] Apply 1 spray in one nostril [...] % 250 mL infusion 2.5 mcg/min (10/26/24 0332) insulin regular in 0.9 % sodium chloride [...] input(s): PHART , PCO2 , PO2ART , DYE1JZV , BEART in the last 72 hours. [...] at baseline or with provocation, shows no craen-aj-bfkz atrial level shunt. - Pulmonary arteries: Systolic [...] IV pantoprazole while intubated, NPO Last BM: SILO OPERATOR Bowel regimen: Senna/Miralax when able Nausea: Zofran PRN FLUID/ELECTROLYTES Recent Labs 10/25/24 2217 NA 137 K 2.1* CL 100 CO2 20* BUN 74* CREATININE 3.87* CALCIUM 9.3 PHOS 5.9* GLUCOSE 114* Intake/Output Summary (Last 24 hours) at 10/26/2024 0341 Last data filed at 10/26/2024 0326 Gross per 24 hour Intake 64292 ml Output 675 ml Net 62651 ml IV Fluids: EPINEPHrine (ADRENALIN) 10 mg in sodium chloride 0.9 % 250 mL infusion, Last Rate: 2.5 mcg/min (10/26/24 0339) insulin regular in 0.9 % sodium chloride norepinephrine, Last Rate: 18 mcg/min (10/26/24 031) vasopressin, Last Rate: 0.04 Units/min (10/26/24 0244) [...] results for input(s): TEGANGLE , TEGKTIME , JOARBSBG32 , TEGMAXAMPL , TEGRTIME , CBMZ in [...] in sodium chloride 0.9% 100 mL IVPB (Tsnc6Yic) 2 g Every 6 hours 10/26/2024 -- Admin Instructions: Use Mreb0Ntm Adapter - Mix Thoroughly Before Administration Notes to Pharmacy: On order checker estimated creatinine clearance is 35.9 mL/min (A) (based on SCr of 3.87 mg/dL (H)). Route: Intravenous AMPicillin 2 g in sodium chloride 0.9% 100 mL IVPB (Iuwg7Nqb) 2 g Once 10/26/2024 -- Admin Instructions: Use Dhym2Bgh Adapter - Mix Thoroughly Before Administration Notes to Pharmacy: On order checker estimated creatinine clearance is 35.9 mL/min (A) (based on SCr of 3.87 mg/dL (H)). Route: Intravenous cefTRIAXone (ROCEPHIN) 2 g in sodium chloride 0.9 % 100 mL Edqm2Hls (Completed) 2 g Once 10/25/2024 10/26/2024 Admin Instructions: Use Luad0Efl Adapter - Mix Thoroughly Before Administration Route: [...] R IJ Mac Arterial Line? R radial [place]ed[place] Urinary Catheter? Berkowitz - Reason: Adequate I/O [...] 47 (H) 10/26/2024 PO2ART 127 (H) 10/26/2024 IKT5SZR 21 (L) 10/26/2024 BEART -5.4 (L) 10/26/2024 XJY4QZF 94.6 (L) 10/26/2024 [id number] 98 10/26/2024 P:F ratio = 363 CARDIOVASCULAR: [...] Acute Care Surgery, and Surgical Critical Care [facility] Academic Office [phone] For Transfers, call [phone] documented in this encounter Nursing Notes * [...] Progressing * Care Coordination - NUBIA Escalera, INTERVENTIONAL TECHNOLOGIST - 10/31/2024 11:34 AM EDT [facility] Case Management/Social Work Department Progress [...] disease. PCP: Enedina Mcguire NP Home Pharmacy: [facility] [address] [place] [address] [facility] [address] [place] [phone] [facility] [place] - [address] [facility] [address] [facility] [place] [id number] Medical Insurance Coverage: Payor: [employer] [...] educator aware that there were no accepting HHC agencies([facility], [facility], [facility]) and patient would need to outpatient for PT/OT and labs. Discharge Plan Anticipated discharge plan: Home with HHC vs Home with outpatient Anticipated discharge date: 11/01 CM/SW will continue to follow and remain available for discharge planning needs. NUBIA Escalera, RONALDO Cell [phone] * Plan of Care - Paulette Flannery [...] Nova - 10/29/2024 1:53 PM EDT [facility] Case Management/Social Work Department Progress [...] disease. PCP: Enedina Mcguire NP Home Pharmacy: [facility] [address] [place] [phone] [facility] [address] [facility] [address] [facility] [address] [facility] [place] - N[place] - [address] [place] [place] [id number] Medical Insurance Coverage: Payor: [employer] [...] SW submitted blanket HHC referral to [facility], [place], [employer] [facility], and [facility] [facility]. Awaiting responses. SW to followpending clearance [...] available for discharge planning needs. NUBIA Rhodes, INTERVENTIONAL TECHNOLOGIST Inpatient Lawyer/Care Coordination [phone] * Plan of Care - Soco Yap [...] Escalera LSW - 10/28/2024 2:29 PM EDT [facility] Case Management/Social Work Department Progress Note Patient Information Patient Name: [facility] day: 3 Inpatient/Observation: Inpatient Level of Care: Transplant Admit date: 10/25/2024 Admission diagnosis: Liver transplant recipient ([facility]) [Z94.4] PMH: has a past medical history of Alcoholic cirrhosis of liver (CMS-HCC), Esophageal varices (CMS-HCC), Hepatorenal syndrome (CMS-HCC), Hypertension, Other hyperlipidemia (07/26/2024), Renal cell carcinoma (CMS-HCC), Thrombocytopenia ([facility]), and Thyroid disease. PCP: Enedina Mcguire NP Home Pharmacy: [facility] [address] [place] [address] [place] [id number] [facility] [address] [facility] [address] [facility] Deya Deya [place] - [address] [facility] [address] [facility] [place] [address] Medical Insurance Coverage: Payor: [facility] C[facility] / Plan: [employer] / [...] available for discharge planning needs. NUBIA Escalera, INTERVENTIONAL TECHNOLOGIST Cell [phone] * Plan of Care - Elaine Carrillo [...] at all times. Outcome: Completed Problem: Non-violent, lbn-eigv-pxrmtchdayt restraints Description: Less restrictive alternative interventions will [...] of medical procedures, or protection of medical specialist access. Outcome: Completed * Plan of Care [...] foods as appropriate. Outcome: Progressing Problem: Non-violent, rdm-somk-jecbyqvcnin restraints Description: Less restrictive alternative interventions will [...] of medical procedures, or protection of medical specialist access. Outcome: Progressing * Plan of Care - Shanel Shen RN - 10/27/2024 9:00 AM EDT Problem: Non-violent, nst-qzfv-tictuarkdfd restraints Description: Less restrictive alternative interventions will [...] - 10/26/2024 7:41 PM EDT Problem: Non-violent, kda-sytm-njtabaqqduf restraints Description: Less restrictive alternative interventions will [...] of medical procedures, or protection of medical specialist access. Outcome: Not Progressing Patient in bilateral [...] restraint flowsheet for further documentation. Problem: Non-violent, cab-gqsa-nttsgkpkzpq restraints Description: Less restrictive alternative interventions will [...] of medical procedures, or protection of medical specialist access. Outcome: Progressing * Plan of Care [...] Routine Acute kidney injury superimposed on CKD ([facility] [place]) Release Upon Ordering for 1 Occurrences starting 10/27/2024 Fungus culture Microbiology Routine Acute kidney injury superimposed on CKD ([facility]) Release Upon Ordering for 1 Occurrences starting 10/27/2024 Routine Culture plus Stain Microbiology Routine Acute kidney injury superimposed on CKD ([facility]) Release Upon Ordering for 1 Occurrences starting 10/27/2024 Surgical Pathology Exam Pathology and Cytology Routine Acute kidney injury superimposed on CKD ([facility]) Release Upon Ordering for 1 Occurrences starting 10/27/2024 documented as of this encounter Procedures Procedure Name Priority Date/Time Associated Diagnosis Comments EKG - SCAN 11/03/2024 9:07 AM EDT BLOOD TRANSFUSION - SCAN 11/03/2024 8:24 AM EDT PERFUSION RECORD - SCAN 11/04/19 8:24 AM EDT POC GLU MONITORING DEVICE [...] Routine 10/31/2024 11:59 AM EDT US DUPLEX [id number] COMPLETE Routine 10/31/2024 10:19 AM EDT US ABDOMEN LIMITED Routine 10/31/2024 10 :19 AM EDT US RENAL TRANSPLANT Routine 10/31/2024 1 0:19 AM EDT ECG 12-LEAD (MUSE) STAT 10/31/2024 [...] Routine 10/28/2024 5:31 PM EDT US DUPLEX [id number] COMPLETE STAT 10/28/2024 4:23 PM EDT US [...] 10/28/2024 6:15 AM EDT PREPARE CRYOPRECIPITATE Routine 10/29/19 6:15 AM EDT PREPARE CRYOPRECIPITATE Routine 10/29/19 6:15 AM EDT PREPARE RBC, LEUKOREDUCED Routine [...] PM EDT BLOOD GAS, ARTERIAL STAT 10/27/2024 1 2:35 PM EDT TEG-BYPASS/ECMO/LIVER HN (FACTOR FUNCTION, PLATELET/FIBRIN CLOT STRENGTH W/CLOT BREAKDOWN, HEPARINASE IN ALL CHANNELS) STAT 10/27/2024 12:07 PM EDT POC GLU MONITORING DEVICE Routine 10/27/2024 12:01 PM EDT POC GLU MONITORING DEVICE Routine 10/27/2024 10:59 AM EDT ECG 12-LEAD (MUSE) STAT 10/27/2024 10 :17 AM EDT POC GLU MONITORING DEVICE Routine 10/27/2024 10:00 AM EDT US DUPLEX [id number] COMPLETE STAT 10/27/2024 9:51 AM EDT US ABDOMEN LIMITED STAT 10/27/2024 9: 51 AM EDT US RENAL TRANSPLANT STAT 10/27/2024 9 :51 AM EDT CARISA RHYTHM STRIP - SCAN 10/28/19 9:25 AM EDT POC GLU MONITORING DEVICE [...] EDT XR ABDOMEN AP VIEW ONLY STAT 10/28/19 7:47 AM EDT TRANSFUSE RED BLOOD CELLS Routine 10/27/2024 6:29 AM EDT PREPARE PLATELETS, LEUKOREDUCED Routine 10/27/2024 6:16 AM EDT PREPARE PLATELETS, LEUKOREDUCED Routine 10/27/2024 6:16 AM EDT PREPARE FRESH FROZEN PLASMA Routine 10/27/2024 6:16 AM EDT PREPARE CRYOPRECIPITATE Routine 10/28/19 6:16 AM EDT PREPARE CRYOPRECIPITATE Routine 10/28/19 6:16 AM EDT PREPARE FRESH FROZEN PLASMA [...] 3:07 AM EDT SURGICAL PATHOLOGY EXAM Routine 10/28/19 2:38 AM EDT Acute kidney injury superimposed on CKD ([facility]) ROUTINE CULTURE PLUS STAIN Routine 10/27/2024 2:15 [...] AM EDT CALCIUM FREE, SERUM STAT 10/27/2024 1 2:13 AM EDT PROTIME-INR Routine 10/27/2024 12:13 AM EDT CBC Routine 10/27/2024 12:13 AM EDT MAGNESIUM Routine 10/27/2024 12:13 AM EDT BLOOD GAS, ARTERIAL STAT 10/27/2024 1 2:13 AM EDT POC GLU MONITORING DEVICE Routine [...] AM EDT BLOOD GAS, ARTERIAL STAT 10/26/2024 1 0:48 AM EDT POC GLU MONITORING DEVICE Routine 10/26/2024 10:47 AM EDT CARISA RHYTHM STRIP - SCAN 10/27/19 10:45 AM EDT POC GLU MONITORING DEVICE [...] EDT POCT CALCIUM, TOTAL Routine 10/26/2024 1 2:39 AM EDT POCT GLUCOSE Routine 10/26/2024 12:39 AM EDT POCT HEMOGLOBIN Routine 10/26/2024 12:39 AM EDT TRANSFUSE PLATELETS Routine 10/26/2024 1 2:33 AM EDT TRANSFUSE RED BLOOD CELLS Routine 10/26/2024 12:30 AM EDT TRANSFUSE FRESH FROZEN PLASMA Routine 10/26/2024 12:27 AM EDT TRANSFUSE FRESH FROZEN PLASMA Routine 10/26/2024 12:27 AM EDT ROUTINE CULTURE PLUS STAIN Routine 10/26/2024 12:03 AM EDT SURGICAL PATHOLOGY EXAM Routine 10/27/19 12:00 AM EDT TRANSFUSE FRESH FROZEN PLASMA [...] PM EDT POCT CALCIUM, TOTAL Routine 10/25/2024 1 1:40 PM EDT POCT GLUCOSE Routine 10/25/2024 11:40 PM EDT POCT HEMOGLOBIN Routine 10/25/2024 11:40 PM EDT URINE CULTURE Routine 10/25/2024 11:08 PM EDT LIVER-KIDNEY TRANSPLANT 10/26/19 25 10:53 PM EDT Alcoholic cirrhosis of liver (CMS-HCC) XR PORTABLE CHEST STAT 10/25/2024 10: 19 PM EDT HEPATITIS A ANTIBODY TOTAL Routine 10/25/2024 10:17 PM EDT HEPATIC FUNCTION PANEL STAT 5 10:17 PM EDT LACTIC ACID STAT 10/25/2024 [...] - 100 mg/dL 11/02/2024 5:45 PM EDT [facility] Blood 11/02/2024 5:44 PM EDT 11/02/2024 5:45 PM EDT us Semaj Mcnair III, MD POINT OF CARE TEST ORDERABLES Final Result [facility] [address] * (ABNORMAL) POC Glucose Monitoring Device (11/02/2024 3:34 PM EDT) POC Glucose Monitoring Device 208(H) 70 - 100 mg/dL 11/02/2024 3:35 PM EDT [facility] Blood 11/02/2024 3:34 PM EDT 11/02/2024 3:35 PM EDT Semaj Mcnair III, MD POINT OF CARE TEST ORDERABLES Final Result Performing Organization Address City/[facility]/ZIP Co de Phone Number [facility] [address] * (ABNORMAL) POC Glucose Monitoring Device (11/02/2024 1:18 PM EDT) POC Glucose Monitoring Device 225(H) 70 - 100 mg/dL 11/02/2024 1:19 PM EDT [facility] Blood 11/02/2024 1:18 PM EDT 11/02/2024 1:19 PM EDT us Semaj Mcnair III, MD POINT OF CARE TEST ORDERABLES Final Result Performing Organization Address City/[facility]/ZIP Co de Phone Number [facility] [address] * (ABNORMAL) POC Glucose Monitoring Device (11/02/2024 8:59 AM EDT) POC Glucose Monitoring Device 129(H) 70 - 100 mg/dL 11/02/2024 9:00 AM EDT [facility] Blood 11/02/2024 8:59 AM EDT 11/02/2024 9:00 AM EDT us Semaj Mcnair III, MD POINT OF CARE TEST ORDERABLES Final Result [facility] [address] * Tacrolimus level (11/02/2024 5:53 AM EDT) Pathologist [facility] Tacrolimus (LC-MS) 7.4 3.0 - 15.0 ng/mL 11/02/2024 2:23 PM EDT [facility] Comment:Performed via liquid chromatography tandem mass spectrometry. Detection limit: 1 ng/mL. Individual target concentrations may vary due to target organ and time after transplant. This test has been developed and its performance characteristics determined by [facility] which is certified under the Clinical Laboratory [...] PharmD LAB BLOOD ORDERABLES Denisse l Result [facility] [address] [facility]. [address] * (ABNORMAL) Renal Function Panel w/EGFR (11/02/2024 5:53 AM EDT) Pathologist [facility] Sodium 140 133 - 146 mmol/L 11/02/2024 6:47 AM EDT [facility] Potassium 3.3(L) 3.5 - 5.3 mmol/L 11/02/2024 6:47 AM EDT [facility] Chloride 107 98 - 110 mmol/L 11/02/2024 6:47 AM EDT [facility] CO2 25 21 - 33 mmol/L 11/02/2024 6:47 AM EDT [facility] Anion Gap 8 3 - 16 mmol/L 11/02/2024 6:47 AM EDT [facility] BUN 31(H) 7 - 25 mg/dL 11/02/2024 6:47 AM EDT [facility] Creatinine 1.08 0.60 - 1.30 mg/dL 11/02/2024 6:47 AM EDT [facility] Glucose 150(H) 70 - 100 mg/dL 11/02/2024 6:47 AM EDT [facility] Calcium 7.8(L) 8.6 - 10.3 mg/dL 11/02/2024 6:47 AM EDT [facility] Phosphorus 2.0(L) 2.1 - 4.7 mg/dL 11/02/2024 6:47 AM EDT [facility] Albumin 3.2(L) 3.5 - 5.7 g/dL 11/02/2024 6:47 AM EDT [facility] Osmolality, Calculated 299 278 - 305 mOsm/kg 11/02/2024 6:47 AM EDT [facility] EGFR 88 11/02/2024 6:47 AM EDT [facility] Comment:As of 2021, the estimated GFR [...] 11/02/2024 6:12 AM EDT us Beata Horner AUTOMOTIVE TECHNOLOGY INSTRUCTOR LAB BLOOD ORDERABLES Denisse valle Result [facility] [address] [place], [place] [address] * (ABNORMAL) Magnesium (11/02/2024 5:53 AM EDT) Magnesium 1.3(L) 1.5 - 2.5 mg/dL 11/02/2024 6:47 AM EDT [facility] Plasma 11/02/2024 5:53 AM EDT 11/02/2024 6:12 AM EDT Beata Horner [facility] LAB BLOOD ORDERABLES Denisse l Result Performing Organization Address [facility] Co de Phone Number [facility] [address] [facility]. [address] * (ABNORMAL) Hepatic Function Panel (11/02/2024 5:53 AM EDT) Total Bilirubin 1.6(H) 0.0 - 1.5 mg/dL 11/02/2024 6:47 AM EDT [facility] Bilirubin, Direct 0.81(H) 0.00 - 0.40 mg/dL 11/02/2024 6:47 AM EDT [facility] AST 30 13 - 39 U/L 11/02/2024 6:47 AM EDT [facility] ALT 66(H) 7 - 52 U/L 11/02/2024 6:47 AM EDT [facility] Alkaline Phosphatase 126(H) 36 - 125 U/L 11/02/2024 6:47 AM EDT [facility] Total Protein 4.6(L) 6.4 - 8.9 g/dL 11/02/2024 6:47 AM EDT [facility] Albumin 3.2(L) 3.5 - 5.7 g/dL 11/02/2024 6:47 AM EDT [facility] Bilirubin, Indirect 0.79 0.00 - 1.10 mg/dL 11/02/2024 6:47 AM EDT [facility] Plasma 11/02/2024 5:53 AM EDT 11/02/2024 6:12 AM EDT Beata Horner [facility] LAB BLOOD ORDERABLES Denisse l Result [facility] [address] [facility]. [address] * (ABNORMAL) CBC (11/02/2024 5:53 AM EDT) Pathologist [facility] WBC 5.8 3.8 - 10.8 10E3/uL 11/02/2024 6:21 AM EDT [facility] RBC 3.12(L) 4.20 - 5.80 10E6/uL 11/02/2024 6:21 AM EDT [facility] Hemoglobin 9.2(L) 13.2 - 17.1 g/dL 11/02/2024 6:21 AM EDT [facility] Hematocrit 27.5(L) 38.5 - 50.0 % 11/02/2024 6:21 AM EDT [facility] MCV 87.9 80.0 - 100.0 fL 11/02/2024 6:21 AM EDT [facility] MCH 29.5 27.0 - 33.0 pg 11/02/2024 6:21 AM EDT [facility] MCHC 33.5 32.0 - 36.0 g/dL 11/02/2024 6:21 AM EDT [facility] RDW 17.5(H) 11.0 - 15.0 % 11/02/2024 6:21 AM EDT [facility] Platelets 61(L) 140 - 400 10E3/uL 11/02/2024 6:21 AM EDT [facility] MPV 7.9 7.5 - 11.5 fL 11/02/2024 6:21 AM EDT [facility] Whole Blood 11/02/2024 5:53 AM EDT 11/02/2024 6:12 AM EDT Beata Horner [facility] LAB BLOOD ORDERABLES Denisse l Result [facility] [address] [place] [address], [facility] * (ABNORMAL) POC Glucose Monitoring Device (11/01/2024 9:26 PM EDT) Pathologist [facility] POC Glucose Monitoring Device 199(H) 70 - 100 mg/dL 11/01/2024 9:27 PM EDT [facility] Blood 11/01/2024 9:26 PM EDT 11/01/2024 9:27 PM EDT Semaj Mcnair III, MD POINT OF CARE TEST ORDERABLES Final Result [facility] [address] * (ABNORMAL) POC Glucose Monitoring Device (11/01/2024 5:04 PM EDT) POC Glucose Monitoring Device 255(H) 70 - 100 mg/dL 11/01/2024 5:05 PM EDT [facility] Blood 11/01/2024 5:04 PM EDT 11/01/2024 5:05 PM EDT Semaj Mcnair III, MD POINT OF CARE TEST ORDERABLES Final Result Performing Organization Address City/[facility] Co de Phone Number [facility] [address] * (ABNORMAL) Renal Function Panel w/EGFR, STAT (11/01/2024 2:17 PM EDT) Sodium 139 133 - 146 mmol/L 11/01/2024 3:10 PM EDT [facility] Potassium 3.3(L) 3.5 - 5.3 mmol/L 11/01/2024 3:10 PM EDT [facility] Chloride 107 98 - 110 mmol/L 11/01/2024 3:10 PM EDT [facility] CO2 24 21 - 33 mmol/L 11/01/2024 3:10 PM EDT [facility] Anion Gap 8 3 - 16 mmol/L 11/01/2024 3:10 PM EDT [facility] BUN 35(H) 7 - 25 mg/dL 11/01/2024 3:10 PM EDT [facility] Creatinine 1.22 0.60 - 1.30 mg/dL 11/01/2024 3:10 PM EDT [facility] Glucose 203(H) 70 - 100 mg/dL 11/01/2024 3:10 PM EDT [facility] Calcium 8.3(L) 8.6 - 10.3 mg/dL 11/01/2024 3:10 PM EDT [facility] Phosphorus 2.2 2.1 - 4.7 mg/dL 11/01/2024 3:10 PM EDT [facility] Albumin 3.4(L) 3.5 - 5.7 g/dL 11/01/2024 3:10 PM EDT [facility] Osmolality, Calculated 302 278 - 305 mOsm/kg 11/01/2024 3:10 PM EDT [facility] EGFR 76 11/01/2024 3:10 PM EDT [facility] Comment:As of 2021, the estimated GFR [...] LAB BLOOD ORDERABLES Final Result [facility] [address] [place] [address], [facility] * X-ray Portable Abdomen AP view [...] Glucose Monitoring Device (11/01/2024 12:22 PM EDT) Pathologist [facility] POC Glucose Monitoring Device 144(H) 70 - 100 mg/dL 11/01/2024 12:23 PM EDT [facility] Blood 11/01/2024 12:2 2 PM EDT 11/01/2024 12:23 PM EDT Semaj Mcnair III, MD POINT OF CARE TEST ORDERABLES Final Result [facility] [address] * (ABNORMAL) POC Glucose Monitoring Device (11/01/2024 8:50 AM EDT) [facility] POC Glucose Monitoring Device 175(H) 70 - 100 mg/dL 11/01/2024 8:[address] [facility] Blood 11/01/2024 8:50 AM EDT 11/01/2024 8:51 AM EDT Semaj Mcnair III, MD POINT OF CARE TEST ORDERABLES Final Result [facility] [address] [facility] * Tacrolimus level (11/01/2024 6:01 AM EDT) [facility] Tacrolimus (LC-MS) 7.5 3.0 - 15.0 ng/mL 11/01/2024 12:14 PM EDT [facility] Comment:Performed via liquid chromatography tandem mass spectrometry. Detection limit: 1 ng/mL. Individual target concentrations may vary due to target organ and time after transplant. This test has been developed and its performance characteristics determined by [facility] which is certified under [...] PharmD LAB BLOOD ORDERABLES Denisse l Result [facility] [address] [facility]. [address] * (ABNORMAL) Renal Function Panel w/EGFR (11/01/2024 6:01 AM EDT) [facility] Sodium 139 133 - 146 mmol/L 11/01/2024 6:57 AM EDT [facility] Potassium 3.3(L) 3.5 - 5.3 mmol/L 11/01/2024 6:57 AM EDT [facility] Chloride 108 98 - 110 mmol/L 11/01/2024 6:57 AM EDT [facility] CO2 22 21 - 33 mmol/L 11/01/2024 6:57 AM EDT [facility] Anion Gap 9 3 - 16 mmol/L 11/01/2024 6:57 AM EDT [facility] BUN 37(H) 7 - 25 mg/dL 11/01/2024 6:57 AM EDT [facility] Creatinine 1.30 0.60 - 1.30 mg/dL 11/01/2024 6:57 AM T [facility] Glucose 163(H) 70 - 100 mg/dL 11/01/2024 6:57 AM EDT [facility] Calcium 8.2(L) 8.6 - 10.3 mg/dL 11/01/2024 6:57 AM EDT [facility] Phosphorus 2.9 2.1 - 4.7 mg/dL 11/01/2024 6:57 AM EDT [facility] Albumin 3.1(L) 3.5 - 5.7 g/dL 11/01/2024 6:57 AM EDT [facility] Osmolality, Calculated 300 278 - 305 mOsm/kg 11/01/2024 6:57 AM EDT [facility] EGFR 71 11/01/2024 6:57 AM EDT [facility] Comment:As of 2021, the estimated GFR [...] Disease. Am J Kidney Dis. 202. Plasma 11/01/2024 6:01 AM EDT 11/01/2024 6:20 AM EDT Beata Garlandbrook Horner AUTOMOTIVE TECHNOLOGY INSTRUCTOR LAB BLOOD ORDERABLES Denisse l Result Performing Organization Address City/[facility]/ZIP Co de Phone Number [facility] [address] * Magnesium (11/01/2024 6:01 AM EDT) Magnesium 1.5 1.5 - 2.5 mg/dL 11/01/2024 6:57 AM EDT [facility] Plasma 11/01/2024 6:01 AM EDT 11/01/2024 6:20 AM EDT Beata Horner [facility] LAB BLOOD ORDERABLES Denisse l Result Performing Organization Address [facility] Co de Phone Number [facility] [address] * (ABNORMAL) Hepatic Function Panel (11/01/2024 6:01 AM EDT) Total Bilirubin 2.0(H) 0.0 - 1.5 mg/dL 11/01/2024 6:57 AM EDT [facility] Bilirubin, Direct 1.06(H) 0.00 - 0.40 mg/dL 11/01/2024 6:57 AM EDT [facility] AST 21 13 - 39 U/L 11/01/2024 6:57 AM EDT [facility] ALT 62(H) 7 - 52 U/L 11/01/2024 6:57 AM EDT [facility] Alkaline Phosphatase 114 36 - 125 U/L 11/01/2024 6:57 AM EDT [facility] Total Protein 4.6(L) 6.4 - 8.9 g/dL 11/01/2024 6:57 AM EDT [facility] Albumin 3.1(L) 3.5 - 5.7 g/dL 11/01/2024 6:57 AM EDT [facility] Bilirubin, Indirect 0.94 0.00 - 1.10 mg/dL 11/01/2024 6:57 AM EDT [facility] Plasma 11/01/2024 6:01 AM EDT 11/01/2024 6:20 AM EDT Beata Horner AUTOMOTIVE TECHNOLOGY INSTRUCTOR LAB BLOOD ORDERABLES Denisse l Result [facility] [address] [id number] * (ABNORMAL) CBC (11/01/2024 6:01 AM EDT) WBC 5.9 3.8 - 10.8 10E3/uL 11/01/2024 6:29 AM EDT [facility] RBC 3.19(L) 4.20 - 5.80 10E6/uL 11/01/2024 6:29 AM EDT [facility] Hemoglobin 9.5(L) 13.2 - 17.1 g/dL 11/01/2024 6:29 AM EDT [facility] Hematocrit 27.8(L) 38.5 - 50.0 % 11/01/2024 6:29 AM EDT [facility] MCV 87.1 80.0 - 100.0 fL 11/01/2024 6:29 AM EDT [facility] MCH 29.9 27.0 - 33.0 pg 11/01/2024 6:29 AM EDT [facility] MCHC 34.3 32.0 - 36.0 g/dL 11/01/2024 6:29 AM EDT [facility] RDW 17.4(H) 11.0 - 15.0 % 11/01/2024 6:29 AM EDT [facility] Platelets 56(L) 140 - 400 10E3/uL 11/01/2024 6:29 AM EDT [facility] MPV 8.3 7.5 - 11.5 fL 11/01/2024 6:29 AM EDT [facility] Whole Blood 11/01/2024 6:01 AM EDT 11/01/2024 6:19 AM EDT us Beata Horner [facility] LAB BLOOD ORDERABLES Denisse l Result [facility] [address] [facility]. [address] * (ABNORMAL) POC Glucose Monitoring Device (10/31/2024 9:15 PM EDT) POC Glucose Monitoring Device 171(H) 70 - 100 mg/dL 10/31/2024 9:15 PM EDT [facility] Blood 10/31/2024 9:15 PM EDT 10/31/2024 9:15 PM EDT Semaj Mcnair III, MD POINT OF CARE TEST ORDERABLES Final Result Performing Organization Address [facility] Co de Phone Number [facility] [address] [facility]. [address] * (ABNORMAL) POC Glucose Monitoring Device (10/31/2024 5:56 PM EDT) POC Glucose Monitoring Device 179(H) 70 - 100 mg/dL 10/31/2024 5:[address] [facility] Blood 10/31/2024 5:56 PM EDT 10/31/2024 5:57 PM EDT Semaj Mcnair III, MD POINT OF CARE TEST ORDERABLES Final Result [facility] [address] [facility]. [address] * CT Abdomen and Pelvis WO [...] Adrenal gland: No focal nodule seen. Kidneys: [place] kidneys noted with nonobstructing calcifications on the right. Findings of postsurgical changes in the left [place] kidney. Mild right hydronephrosis without an obstructive [...] Adrenal gland: No focal nodule seen. Kidneys: [place] kidneys noted with nonobstructing calcifications on theright. Findings of postsurgical changes in the left [place] kidney. Mildright hydronephrosis without an obstructive course [...] QT: 400 ms QTc: 456 ms P [place]: 49 degrees R [place]: 3 degrees T [place]: 14 degrees Diagnosis Line: NORMAL SINUS RHYTHM ^ NORMAL ECG ^ ^ Confirmed by MD REID JAMES ([id number]) on 11/02/2024 6:56:52 AM Priti Geiger CNP ECG ORDERABLES Final Result MUSE * (ABNORMAL) Urinalysis w/Rfl to Microscopic (10/31/2024 1:18 PM EDT) Color, UA Straw Yellow,Straw 10/31/2024 1:46 PM EDT [facility] Clarity, UA Clear Clear 10/31/2024 1:46 PM EDT [facility] Specific [place], UA 1.013 1.005 - 1.035 10/31/2024 1:46 PM EDT [facility] pH, UA 6.5 5.0 - 8.0 10/31/2024 1:46 PM EDT [facility] Protein, UA Negative Negative mg/dL 10/31/2024 1:46 PM EDT [facility] Glucose, UA Negative Negative mg/dL 10/31/2024 1:46 PM EDT [facility] Ketones, UA Negative Negative mg/dL 10/31/2024 1:46 PM EDT [facility] Bilirubin, UA Negative Negative 10/31/2024 1:46 PM EDT [facility] Blood, UA Large(A) Negative 10/31/2024 1:46 PM EDT [facility] Nitrite, UA Negative Negative 10/31/2024 1:46 PM EDT [facility] Urobilinogen, UA <2.0 0.2 - 1.9 mg/dL 10/31/2024 1:46 PM EDT [facility] Leukocyte Esterase, UA Negative Negative 10/31/2024 1:46 PM EDT [facility] RBC, UA >100(H) 0 - 3 /HPF 10/31/2024 1:46 PM EDT [facility] WBC, UA 3 0 - 5 /HPF 10/31/2024 1:46 PM EDT [facility] Hyaline Casts, UA 3(H) 0 - 2 /LPF 10/31/2024 1:46 PM EDT [facility] Urine 10/31/2024 1:18 PM EDT 10/31/2024 1:32 PM EDT Priti Geiger CNP URINE ORDERABLES Final Result [facility] [address] * (ABNORMAL) Post Kidney Transplant Urine Culture (10/31/2024 1:18 PM EDT) Culture Result Enterococcus faecium, Vancomycin Resistant(A) [facility] Comment: 1,000- <10,000 cfu/mL Identified by [...] MICROBIOLOGY - GENERAL ORDERA BLES Final Result [facility] [address] * (ABNORMAL) POC Glucose Monitoring Device (10/31/2024 11:59 AM EDT) Pathologist [facility] POC Glucose Monitoring Device 130(H) 70 - 100 mg/dL 10/31/2024 12:[address] [facility] Blood 10/31/2024 11:5 9 AM EDT 10/31/2024 12:21 PM EDT Semaj Mcnair III, MD POINT OF CARE TEST ORDERABLES Final Result [facility] [address] * US Abdomen Limited (10/31/2024 10:19 AM [...] EXAM: US ABDOMEN LIMITED EXAM: US DUPLEX [id number] COMPLETE INDICATION: Post-op liver transplant COMPARISON: None [...] visualized secondary to poor acoustic windows. [place] right kidney measures 11.6 cm in length. [...] EXAM: US ABDOMEN LIMITED EXAM: US DUPLEX [id number] COMPLETE INDICATION: Post-op liver transplant COMPARISON: None [...] well visualized secondary to poor acousticwindows. [place] right kidney measures 11.6 cm in length. [...] at 10/31/2024 10:35 AM EDT Beata Horner [facility] US ORDERABLES Final R esult [...] 10/31/2024 10:29 AM EDT us Beata Horner [facility] IM US ORDERABLES Final R esult * US Duplex Rzx-Hxw-[id number] Comp (10/31/2024 10:19 AM EDT) Anatomical Region [...] EXAM: US ABDOMEN LIMITED EXAM: US DUPLEX [id number] COMPLETE INDICATION: Post-op liver transplant COMPARISON: None [...] visualized secondary to poor acoustic windows. [place] right kidney measures 11.6 cm in length. [...] EXAM: US ABDOMEN LIMITED EXAM: US DUPLEX [id number] COMPLETE INDICATION: Post-op liver transplant COMPARISON: None [...] well visualized secondary to poor acousticwindows. [place] right kidney measures 11.6 cm in length. [...] at 10/31/2024 10:35 AM EDT Beata Horner [facility] US ORDERABLES Final R esult * ECG 12-lead (MUSE) (10/31/2024 8:57 AM EDT) 10/31/2024 8:57 AM EDT Narrative MUSE - 11/01/2024 9:21 AM EDT Ventricular Rate: 83 BPM Atrial Rate: 83 BPM P-R Interval: 168 ms QRS Duration: 102 ms QT: 392 ms QTc: 460 ms P [place]: 64 degrees R [place]: -18 degrees T [place]: 7 degrees Diagnosis Line: NORMAL SINUS RHYTHM ^ NORMAL ECG ^ ^ Confirmed by MD JOE, KIMBERLYIIA ([id number]) on 11/01/2024 9:21:13 AM Priti Geiger [employer] ECG ORDERABLES Final Result MUSE * (ABNORMAL) POC Glucose Monitoring Device (10/31/2024 8:44 AM EDT) POC Glucose Monitoring Device 145(H) 70 - 100 mg/dL 10/31/2024 8:45 AM EDT [facility] Blood 10/31/2024 8:44 AM EDT 10/31/2024 8:44 AM EDT Semaj Mcnair III, MD POINT OF CARE TEST ORDERABLES Final Result Performing Organization Address [facility] de Phone Number [facility] [address] * Tacrolimus level (10/31/2024 6:40 AM EDT) Pathologist [facility] Tacrolimus (LC-MS) 8.4 3.0 - 15.0 ng/mL 10/31/2024 10:05 AM EDT [facility] Comment:Performed via liquid chromatography tandem mass spectrometry. Detection limit: 1 ng/mL. Individual target concentrations may vary due to target organ and time after transplant. This test has been developed and its performance characteristics determined by [facility] which is certified under [...] ORDERABLES Denisse l Result Performing Organization Address [facility] Co de Phone Number [facility] [address] [facility]. [address] * (ABNORMAL) Renal Function Panel w/EGFR (10/31/2024 6:40 AM EDT) Sodium 141 133 - 146 mmol/L 10/31/2024 8:09 AM EDT [facility] Potassium 3.5 3.5 - 5.3 mmol/L 10/31/2024 8:09 AM EDT [facility] Chloride 111(H) 98 - 110 mmol/L 10/31/2024 8:09 AM EDT [facility] CO2 20(L) 21 - 33 mmol/L 10/31/2024 8:09 AM EDT [facility] Anion Gap 10 3 - 16 mmol/L 10/31/2024 8:09 AM EDT [facility] BUN 54(H) 7 - 25 mg/dL 10/31/2024 8:09 AM EDT [facility] Creatinine 1.75(H) 0.60 - 1.30 mg/dL 10/31/2024 8:09 AM EDT [facility] Glucose 136(H) 70 - 100 mg/dL 10/31/2024 8:09 AM EDT [facility] Calcium 8.7 8.6 - 10.3 mg/dL 10/31/2024 8:09 AM EDT [facility] Phosphorus 4.1 2.1 - 4.7 mg/dL 10/31/2024 8:09 AM T [facility] Albumin 3.2(L) 3.5 - 5.7 g/dL 10/31/2024 8:09 AM [facility] Osmolality, Calculated 309(H) 278 - 305 mOsm/kg 10/31/2024 8:09 AM [facility] EGFR 50 10/31/2024 8:09 AM T [facility] Comment:As of 2021, the estimated GFR [...] EDT 10/31/2024 7:35 AM EDT Beata Horner [facility] BLOOD ORDERABLES Denisse l Result [facility] [address] [facility]. [address] * Magnesium (10/31/2024 6:40 AM EDT) Magnesium 1.8 1.5 - 2.5 mg/dL 10/31/2024 8:09 AM EDT [facility] Plasma 10/31/2024 6:40 AM EDT 10/31/2024 7:35 AM EDT Beata Garland Evens [employer] LAB BLOOD ORDERABLES Denisse l Result Performing Organization Address City/[facility] Co de Phone Number [facility] [address] [facility]. [address] * (ABNORMAL) Hepatic Function Panel (10/31/2024 6:40 AM EDT) Total Bilirubin 2.7(H) 0.0 - 1.5 mg/dL 10/31/2024 8:09 AM EDT [facility] Bilirubin, Direct 1.57(H) 0.00 - 0.40 mg/dL 10/31/2024 8:09 AM EDT [facility] AST 26 13 - 39 U/L 10/31/2024 8:09 AM EDT [facility] ALT 68(H) 7 - 52 U/L 10/31/2024 8:09 AM EDT [facility] Alkaline Phosphatase 112 36 - 125 U/L 10/31/2024 8:09 AM EDT [facility] Total Protein 4.7(L) 6.4 - 8.9 g/dL 10/31/2024 8:09 AM EDT [facility] Albumin 3.2(L) 3.5 - 5.7 g/dL 10/31/2024 8:09 AM EDT [facility] Bilirubin, Indirect 1.13(H) 0.00 - 1.10 mg/dL 10/31/2024 8:09 AM EDT [facility] Plasma 10/31/2024 6:40 AM EDT 10/31/2024 7:35 AM EDT us Beata Dada Bessn [facility] BLOOD ORDERABLES Denisse l Result [facility] [address] [facility] * (ABNORMAL) CBC (10/31/2024 6:40 AM EDT) WBC 6.0 3.8 - 10.8 10E3/uL 10/31/2024 8:05 AM EDT [facility] RBC 3.14(L) 4.20 - 5.80 10E6/uL 10/31/2024 8:05 AM EDT [facility] Hemoglobin 9.6(L) 13.2 - 17.1 g/dL 10/31/2024 8:05 AM EDT [facility] Hematocrit 27.5(L) 38.5 - 50.0 % 10/31/2024 8:05 AM EDT [facility] MCV 87.6 80.0 - 100.0 fL 10/31/2024 8:05 AM EDT [facility] MCH 30.7 27.0 - 33.0 pg 10/31/2024 8:05 AM EDT [facility] MCHC 35.0 32.0 - 36.0 g/dL 10/31/2024 8:05 AM EDT [facility] RDW 17.9(H) 11.0 - 15.0 % 10/31/2024 8:05 AM EDT [facility] Platelets 44(L) 140 - 400 10E3/uL 10/31/2024 8:05 AM EDT [facility] Comment: CNV Specimen checked for clots. None detected. MPV 8.9 7.5 - 11.5 fL 10/31/2024 8:05 AM EDT [facility] Whole Blood 10/31/2024 6:40 AM EDT 10/31/2024 7:34 AM EDT Beata Horner [facility] BLOOD ORDERABLES Denisse l Result [facility] [address] * (ABNORMAL) POC Glucose Monitoring Device (10/30/2024 9:01 PM EDT) POC Glucose Monitoring Device 144(H) 70 - 100 mg/dL 10/30/2024 9:02 PM EDT [facility] Blood 10/30/2024 9:01 PM EDT 10/30/2024 9:01 PM EDT Semaj Mcnair III, MD POINT OF CARE TEST ORDERABLES Final Result [facility] [address] * (ABNORMAL) POC Glucose Monitoring Device (10/30/2024 5:37 PM EDT) POC Glucose Monitoring Device 124(H) 70 - 100 mg/dL 10/30/2024 5:47 PM EDT [facility] Blood 10/30/2024 5:37 PM EDT 10/30/2024 5:47 PM EDT us Semaj Mcnair III, MD POINT OF CARE TEST ORDERABLES Final Result [facility] [address] * (ABNORMAL) POC Glucose Monitoring Device (10/30/2024 7:26 AM EDT) POC Glucose Monitoring Device 150(H) 70 - 100 mg/dL 10/30/2024 7:27 AM EDT [facility] Blood 10/30/2024 7:26 AM EDT 10/30/2024 7:27 AM EDT us Semaj Mcnair III, MD POINT OF CARE TEST ORDERABLES Final Result [facility] [address] * Tacrolimus level (10/30/2024 7:13 AM EDT) Tacrolimus (LC-MS) 9.5 3.0 - 15.0 ng/mL 10/30/2024 2:53 PM EDT [facility] Comment:Performed via liquid chromatography tandem mass spectrometry. Detection limit: 1 ng/mL. Individual target concentrations may vary due to target organ and time after transplant. This test has been developed and its performance characteristics determined by [facility] which is certified under the Clinical Laboratory [...] 7:13 AM EDT 10/30/2024 7:26 AM EDT [employer] [facility] BLOOD ORDERABLES Final Re sult [facility] [address] * ECG 12-lead (MUSE) (10/30/2024 6:51 AM EDT) 10/30/2024 6:51 AM EDT Narrative MUSE - 11/01/2024 9:21 AM EDT Ventricular Rate: 92 BPM Atrial Rate: 92 BPM P-R Interval: 174 ms QRS Duration: 96 ms QT: 376 ms QTc: 464 ms P [place]: 54 degrees R [place]: -24 degrees T [place]: 11 degrees Diagnosis Line: NORMAL SINUS RHYTHM ^ NORMAL ECG ^ ^ Confirmed by MD JOE, OTIS ([id number]) on 11/01/2024 9:21:09 AM [employer] [facility] ECG ORDERABLES Final Result MUSE * (ABNORMAL) Renal Function Panel w/EGFR (10/30/2024 5:41 AM EDT) Sodium 140 133 - 146 mmol/L 10/30/2024 6:18 AM EDT [facility] Potassium 3.8 3.5 - 5.3 mmol/L 10/30/2024 6:18 AM EDT [facility] Chloride 111(H) 98 - 110 mmol/L 10/30/2024 6:18 AM EDT [facility] CO2 17(L) 21 - 33 mmol/L 10/30/2024 6:18 AM EDT [facility] Anion Gap 12 3 - 16 mmol/L 10/30/2024 6:18 AM EDT [facility] BUN 62(H) 7 - 25 mg/dL 10/30/2024 6:18 AM EDT [facility] Creatinine 1.96(H) 0.60 - 1.30 mg/dL 10/30/2024 6:18 AM EDT [facility] Glucose 116(H) 70 - 100 mg/dL 10/30/2024 6:18 AM EDT [facility] Calcium 9.0 8.6 - 10.3 mg/dL 10/30/2024 6:18 AM EDT [facility] Phosphorus 4.6 2.1 - 4.7 mg/dL 10/30/2024 6:18 AM EDT [facility] Albumin 3.2(L) 3.5 - 5.7 g/dL 10/30/2024 6:18 AM EDT [facility] Osmolality, Calculated 309(H) 278 - 305 mOsm/kg 10/30/2024 6:18 AM EDT [facility] EGFR 43 10/30/2024 6:18 AM EDT [facility] Comment:As of 2021, the estimated GFR [...] AM EDT 10/30/2024 5:47 AM EDT Beata Newberrybrook Horner [employer] LAB BLOOD ORDERABLES Denisse l Result Performing Organization Address City/[facility]/ZIP Co de Phone Number [facility] [address] * Magnesium (10/30/2024 5:41 AM EDT) Magnesium 2.2 1.5 - 2.5 mg/dL 10/30/2024 6:18 AM EDT [facility] Plasma 10/30/2024 5:41 AM EDT 10/30/2024 5:47 AM EDT [facility] Gar[facility] Evens [facility] BLOOD ORDERABLES Denisse l Result Performing Organization Address [facility] Co de Phone Number [facility] [address] * (ABNORMAL) Hepatic Function Panel (10/30/2024 5:41 AM EDT) Total Bilirubin 3.6(H) 0.0 - 1.5 mg/dL 10/30/2024 6:18 AM EDT [facility] Bilirubin, Direct 1.95(H) 0.00 - 0.40 mg/dL 10/30/2024 6:18 AM EDT [facility] AST 33 13 - 39 U/L 10/30/2024 6:18 AM EDT [facility] ALT 71(H) 7 - 52 U/L 10/30/2024 6:18 AM EDT [facility] Alkaline Phosphatase 80 36 - 125 U/L 10/30/2024 6:18 AM EDT [facility] Total Protein 4.8(L) 6.4 - 8.9 g/dL 10/30/2024 6:18 AM EDT [facility] Albumin 3.2(L) 3.5 - 5.7 g/dL 10/30/2024 6:18 AM EDT [facility] Bilirubin, Indirect 1.65(H) 0.00 - 1.10 mg/dL 10/30/2024 6:18 AM EDT [facility] Plasma 10/30/2024 5:41 AM EDT 10/30/2024 5:47 AM EDT us Beata Horner [employer]OMOT[employer] TECH[employer] INSTRU[employer] LAB BLOOD ORDERABLES Denisse valle Result [facility] [address] [place] [address], [facility] * (ABNORMAL) CBC (10/30/2024 5:41 AM EDT) WBC 8.1 3.8 - 10.8 10E3/uL 10/30/2024 8:06 AM EDT [facility] RBC 3.29(L) 4.20 - 5.80 10E6/uL 10/30/2024 8:06 AM EDT [facility] Hemoglobin 10.1(L) 13.2 - 17.1 g/dL 10/30/2024 8:06 AM EDT [facility] Hematocrit 28.8(L) 38.5 - 50.0 % 10/30/2024 8:06 AM EDT [facility] MCV 87.6 80.0 - 100.0 fL 10/30/2024 8:06 AM EDT [facility] MCH 30.6 27.0 - 33.0 pg 10/30/2024 8:06 AM EDT [facility] MCHC 34.9 32.0 - 36.0 g/dL 10/30/2024 8:06 AM EDT [facility] RDW 18.1(H) 11.0 - 15.0 % 10/30/2024 8:06 AM EDT [facility] Platelets 44(L) 140 - 400 10E3/uL 10/30/2024 8:06 AM EDT [facility] Comment: CNV Specimen checked for clots. None detected. MPV 8.3 7.5 - 11.5 fL 10/30/2024 8:06 AM EDT [facility] Whole Blood 10/30/2024 5:41 AM EDT 10/30/2024 5:50 AM EDT Beata Horner [facility] BLOOD ORDERABLES Denisse l Result Performing Organization Address City/[facility]/ZIP Co de Phone Number [facility] [address] [place] [address]. [address] * (ABNORMAL) POC Glucose Monitoring Device (10/29/2024 10:18 PM EDT) POC Glucose Monitoring Device 140(H) 70 - 100 mg/dL 10/29/2024 10:18 PM EDT [facility] Blood 10/29/2024 10:1 8 PM EDT 10/29/2024 10:18 PM EDT us Semaj Mcnair III, MD POINT OF CARE TEST ORDERABLES Final Result Performing Organization Address [facility] Co de Phone Number [facility] [address] [place] [address]. [address] * (ABNORMAL) POC Glucose Monitoring Device (10/29/2024 6:42 PM EDT) POC Glucose Monitoring Device 152(H) 70 - 100 mg/dL 10/29/2024 6:43 PM EDT [facility] Blood 10/29/2024 6:4 2 PM EDT 10/29/2024 6:43 PM EDT us Semaj Mcnair III, MD POINT OF CARE TEST ORDERABLES Final Result Performing Organization Address City/[facility]/ZIP Co de Phone Number [facility] [address] [place] [address]. [address] * (ABNORMAL) POC Glucose Monitoring Device (10/29/2024 11:35 AM EDT) POC Glucose Monitoring Device 130(H) 70 - 100 mg/dL 10/29/2024 11:36 AM EDT [facility] Blood 10/29/2024 11:3 5 AM EDT 10/29/2024 11:36 AM EDT Semaj Mcnair III, MD POINT OF CARE TEST ORDERABLES Final Result Performing Organization Address City/[facility] Co de Phone Number [facility] [address] [place] [address], [facility] * ECG 12 lead (MUSE) (10/29/2024 9:34 AM EDT) 10/29/2024 9:34 AM EDT Narrative MUSE - 10/29/2024 10:34 PM EDT Ventricular Rate: 97 BPM Atrial Rate: 97 BPM P-R Interval: 186 ms QRS Duration: 104 ms QT: 382 ms QTc: 485 ms P [place]: 54 degrees R [place]: -21 degrees T [place]: 1 degrees Diagnosis Line: NORMAL SINUS RHYTHM ^ NORMAL ECG ^ Confirmed by JORGE MACIAS ([id number]) on 10/29/2024 10:34:50 PM Afshan Bear MD ECG ORDERABLES Final Result Performing Organization Address [facility] Co de Phone Number MUSE * Tacrolimus level (10/29/2024 8:08 AM EDT) Tacrolimus (LC-MS) 10.4 3.0 - 15.0 ng/mL 10/29/2024 2:07 PM EDT [facility] Comment:Performed via liquid chromatography tandem mass spectrometry. Detection limit: 1 ng/mL. Individual target concentrations may vary due to target organ and time after transplant. This test has been developed and its performance characteristics determined by [facility] which is certified under [...] EDT 10/29/2024 8:21 AM EDT Priti Geiger [facility] BLOOD ORDERABLES Final Re sult [facility] [address] [place] [address], [facility] * Prepare RBC, leukoreduced, 1 Units (10/29/2024 6:16 AM EDT) Product Code J9506T27 [facility] Unit Number [id number] [facility] Dispense Status Presumed Transfused_PT [facility] Blood Expiration Date 001835135484 [facility] Coding System [id number] [facility] Blood Bank Product Shay Plata MD BLOOD BANK PRODUCT O RDERABLES Final Result Performing Organization Address [facility] Co de Phone Number [facility] * Prepare RBC, leukoreduced, 1 Units (10/29/2024 6:15 AM EDT) Product Code L8268X63 [facility] Unit Number [id number] [facility] Dispense Status Presumed Transfused_PT [facility] Blood Expiration Date 226066440017 [facility] Coding System [id number] [facility] Blood Bank Product Carlos Marks MD BLOOD BANK PRODUCT ORDERABL ES Final Result Performing Organization Address [facility] Co de Phone Number [facility] * Prepare RBC, leukoreduced, 1 Units (10/29/2024 6:15 AM EDT) Product Code F4082U09 [facility] Unit Number [id number] [facility] Dispense Status Presumed Transfused_PT [facility] Blood Expiration Date [id number] [facility] Coding System [id number] [facility] Blood Bank Product John Moreno MD BLOOD BANK PRODUCT ORDERABLE S Final Result Performing Organization Address [facility] Co de Phone Number [facility] * (ABNORMAL) Renal Function Panel w/EGFR (10/29/2024 5:07 AM EDT) Sodium 144 133 - 146 mmol/L 10/29/2024 5:49 AM EDT [facility] Potassium 3.8 3.5 - 5.3 mmol/L 10/29/2024 5:49 AM EDT [facility] Chloride 113(H) 98 - 110 mmol/L 10/29/2024 5:49 AM EDT [facility] CO2 17(L) 21 - 33 mmol/L 10/29/2024 5:49 AM EDT [facility] Anion Gap 14 3 - 16 mmol/L 10/29/2024 5:49 AM EDT [facility] BUN 57(H) 7 - 25 mg/dL 10/29/2024 5:49 AM EDT [facility] Creatinine 1.93(H) 0.60 - 1.30 mg/dL 10/29/2024 5:49 AM EDT [facility] Glucose 110(H) 70 - 100 mg/dL 10/29/2024 5:49 AM EDT [facility] Calcium 9.3 8.6 - 10.3 mg/dL 10/29/2024 5:49 AM EDT [facility] Phosphorus 4.8(H) 2.1 - 4.7 mg/dL 10/29/2024 5:49 AM EDT [facility] Albumin 3.5 3.5 - 5.7 g/dL 10/29/2024 5:49 AM EDT [facility] Osmolality, Calculated 314(H) 278 - 305 mOsm/kg 10/29/2024 5:49 AM EDT [facility] EGFR 44 10/29/2024 5:49 AM EDT [facility] Comment:As of 2021, the estimated GFR [...] 10/29/2024 5:13 AM EDT Beata [place]berrybrook Horner [employer] TECH[employer] INSTRU[employer] LAB BLOOD ORDERABLES Denisse l Result Performing Organization Address City/[facility]/ZIP Co de Phone Number [facility] [address] * Magnesium (10/29/2024 5:07 AM EDT) Magnesium 2.1 1.5 - 2.5 mg/dL 10/29/2024 5:49 AM EDT [facility] Plasma 10/29/2024 5:07 AM EDT 10/29/2024 5:13 AM EDT [facility] [place] [facility] BLOOD ORDERABLES Denisse l Result Performing Organization Address [facility] Co de Phone Number [facility] [address] * (ABNORMAL) Hepatic Function Panel (10/29/2024 5:07 AM EDT) Total Bilirubin 4.2(H) 0.0 - 1.5 mg/dL 10/29/2024 5:49 AM EDT [facility] Bilirubin, Direct 2.85(H) 0.00 - 0.40 mg/dL 10/29/2024 5:49 AM EDT [facility] AST 31 13 - 39 U/L 10/29/2024 5:49 AM EDT [facility] ALT 88(H) 7 - 52 U/L 10/29/2024 5:49 AM EDT [facility] Alkaline Phosphatase 51 36 - 125 U/L 10/29/2024 5:49 AM EDT [facility] Total Protein 5.2(L) 6.4 - 8.9 g/dL 10/29/2024 5:49 AM EDT [facility] Albumin 3.5 3.5 - 5.7 g/dL 10/29/2024 5:49 AM EDT [facility] Bilirubin, Indirect 1.35(H) 0.00 - 1.10 mg/dL 10/29/2024 5:49 AM EDT [facility] Plasma 10/29/2024 5:07 AM EDT 10/29/2024 5:13 AM EDT us Beata Horner [employer] TECH[employer] IN[employer] LAB BLOOD ORDERABLES Denisse l Result [facility] [address] [facility] [place] [address], [facility] * (ABNORMAL) CBC (10/29/2024 5:07 AM EDT) WBC 7.8 3.8 - 10.8 10E3/uL 10/29/2024 5:38 AM EDT [facility] RBC 3.05(L) 4.20 - 5.80 10E6/uL 10/29/2024 5:38 AM EDT [facility] Hemoglobin 9.0(L) 13.2 - 17.1 g/dL 10/29/2024 5:38 AM EDT [facility] Hematocrit 26.7(L) 38.5 - 50.0 % 10/29/2024 5:38 AM EDT [facility] MCV 87.4 80.0 - 100.0 fL 10/29/2024 5:38 AM EDT [facility] MCH 29.7 27.0 - 33.0 pg 10/29/2024 5:38 AM EDT [facility] MCHC 33.9 32.0 - 36.0 g/dL 10/29/2024 5:38 AM EDT [facility] RDW 18.3(H) 11.0 - 15.0 % 10/29/2024 5:38 AM EDT [facility] Platelets 41(L) 140 - 400 10E3/uL 10/29/2024 5:38 AM EDT [facility] Comment: CNV Specimen checked for clots. None detected. MPV 7.5 7.5 - 11.5 fL 10/29/2024 5:38 AM EDT [facility] Whole Blood 10/29/2024 5:07 AM EDT 10/29/2024 5:13 AM EDT Beata [place] Horner CNP LAB BLOOD ORDERABLES Denisse l Result [facility] [id number] * (ABNORMAL) TEG-Bypass/ECMO/Liver HN (Factor function, Platelet/Fibrin Clot Strength w/Clot Breakdown, Heparinase In All Channels) (10/29/2024 5:07 AM EDT) [facility]rated Kaolin Reaction Time (TEGECMOLIVER) 8.9 4.6 - 9.1 minutes 10/29/2024 7:04 AM EDT [facility] Citrated Kaolin W/Heparinase Reaction Time (TEGECMOLIVER) 7.4 4.3 - 8.3 minutes 10/29/2024 7:04 AM EDT [facility] [employer]rated Kaolin Maximum Amplitude (TEGECMOLIVER) 52.9 52.0 - 69.0 mm 10/29/2024 7:04 AM EDT [facility] Citrated Functional Fibrinogen W/Heparinase Maximum Amplitude(TEGEC MOLIVER) 20.7 15.0 - 34.0 mm 10/29/2024 7:04 AM EDT [facility] Citrated Rapid Teg W/Heparinase Maximum Amplitude (TEGECMOLIVER) 49.7(L) 53.0 - 69.0 mm 10/29/2024 7:04 AM EDT [facility] Citrated Kaolin w/Heparinase Percent Lysis (TEGECMOLIVER) 0.0 0.0 - 3.2 % 10/29/2024 7:04 AM EDT [facility] Whole Blood (Citrate) 10/29/2024 5:07 AM EDT 10/29/2024 5:10 AM EDT Kemar Sahni MD LAB BLOOD ORDERABLES Final Result [facility] [address] * (ABNORMAL) TEG-Bypass/ECMO/Liver HN (Factor function, Platelet/Fibrin Clot Strength w/Clot Breakdown, Heparinase In All Channels) (10/28/2024 11:55 PM EDT) Citrated Kaolin Reaction Time (TEGECMOLIVER) 8.6 4.6 - 9.1 minutes 10/29/2024 2:01 AM EDT [facility] Citrated Kaolin W/Heparinase Reaction Time (TEGECMOLIVER) 8.7(H) 4.3 - 8.3 minutes 10/29/2024 2:01 AM EDT [facility] Citrated Kaolin Maximum Amplitude (TEGECMOLIVER) 47.9(L) 52.0 - 69.0 mm 10/29/2024 2:01 AM EDT [facility] Citrated Functional Fibrinogen W/Heparinase Maximum Amplitude(TEGEC MOLIVER) 22.0 15.0 - 34.0 mm 10/29/2024 2:01 AM EDT [facility] Citrated Rapid Teg W/Heparinase Maximum Amplitude (TEGECMOLIVER) 45.9(L) 53.0 - 69.0 mm 10/29/2024 2:01 AM EDT [facility] Citrated Kaolin w/Heparinase Percent Lysis (TEGECMOLIVER) 0.0 0.0 - 3.2 % 10/29/2024 2:[address] [facility] Whole Blood (Citrate) 10/28/2024 11:55 PM EDT 10/28/2024 11:58 PM EDT Kemar Sahni MD LAB BLOOD ORDERABLES Final Result [facility] [address] [place] [address], [facility] * (ABNORMAL) CBC, STAT (10/28/2024 8:04 PM EDT) WBC 3.9 3.8 - 10.8 10E3/uL 10/28/2024 8:36 PM EDT [facility] RBC 2.66(L) 4.20 - 5.80 10E6/uL 10/28/2024 8:36 PM EDT [facility] Hemoglobin 8.0(L) 13.2 - 17.1 g/dL 10/28/2024 8:36 PM EDT [facility] Hematocrit 23.0(L) 38.5 - 50.0 % 10/28/2024 8:36 PM EDT [facility] MCV 86.4 80.0 - 100.0 fL 10/28/2024 8:36 PM EDT [facility] MCH 29.9 27.0 - 33.0 pg 10/28/2024 8:36 PM EDT [facility] MCHC 34.6 32.0 - 36.0 g/dL 10/28/2024 8:36 PM EDT [facility] RDW 18.6(H) 11.0 - 15.0 % 10/28/2024 8:36 PM EDT [facility] Platelets 29(L) 140 - 400 10E3/uL 10/28/2024 8:36 PM EDT [facility] Comment: CNV Specimen checked for clots. None detected. MPV 7.8 7.5 - 11.5 fL 10/28/2024 8:36 PM EDT [facility] Whole Blood 10/28/2024 8:04 PM EDT 10/28/2024 8:14 PM EDT us Carlos Marks MD LAB BLOOD ORDERABLES Final Result Performing Organization Address City/[facility]/ZIP Co de Phone Number [facility] [address] * (ABNORMAL) POC Glucose Monitoring Device (10/28/2024 8:03 PM EDT) POC Glucose Monitoring Device 122(H) 70 - 100 mg/dL 10/28/2024 8:04 PM EDT [facility] Blood 10/28/2024 8:03 PM EDT 10/28/2024 8:04 PM EDT Semaj Mcnair III, MD POINT OF CARE TEST ORDERABLES Final Result [facility] [address] * (ABNORMAL) TEG-Bypass/ECMO/Liver HN (Factor function, Platelet/Fibrin Clot Strength w/Clot Breakdown, Heparinase In All Channels) (10/28/2024 6:39 PM EDT) Pathologist [facility] Citrated Kaolin Reaction Time (TEGECMOLIVER) 9.0 4.6 - 9.1 minutes 10/28/2024 7:50 PM EDT [facility] Citrated Kaolin W/Heparinase Reaction Time (TEGECMOLIVER) 8.3 4.3 - 8.3 minutes 10/28/2024 7:[address] [facility] Citrated Kaolin Maximum Amplitude (TEGECMOLIVER) 47.6(L) 52.0 - 69.0 mm 10/28/2024 7:50 PM EDT [facility] Citrated Functional Fibrinogen W/Heparinase Maximum Amplitude(TEGEC MOLIVER) 20.4 15.0 - 34.0 mm 10/28/2024 7:[address] [facility] Citrated Rapid Teg W/Heparinase Maximum Amplitude (TEGECMOLIVER) 44.0(L) 53.0 - 69.0 mm 10/28/2024 7:50 PM EDT [facility] Citrated Kaolin w/Heparinase Percent Lysis (TEGECMOLIVER) 0.0 0.0 - 3.2 % 10/28/2024 7:[address] [facility] Whole Blood (Citrate) 10/28/2024 6:39 PM EDT 10/28/2024 6:42 PM EDT us Kemar Sahni MD LAB BLOOD ORDERABLES Final Result [facility] [address] [facility] [place] [address], [facility] * (ABNORMAL) POC Glucose Monitoring Device (10/28/2024 5:31 PM EDT) [facility] POC Glucose Monitoring Device 130(H) 70 - 100 mg/dL 10/28/2024 5:31 PM EDT [facility] Blood 10/28/2024 5:31 PM EDT 10/28/2024 5:31 PM EDT us Semaj Mcnair III, MD POINT OF CARE TEST ORDERABLES Final Result [facility] [address] [place] [address], [facility] * Transfuse RBC Transfusion Rate: Per dept routine (10/28/2024 5:23 PM EDT) us Shay Plata MD NURSING TREATMENT OR DERABLES - BLOOD ADMIN Final Result Performing Organization Address City/[facility]/ZIP Co de Phone Number EXTERNAL * Transfuse RBC Transfusion Rate: Per dept routine, 1 Units (10/28/2024 5:23 PM EDT) Shay Plata MD NURSING TREATMENT OR DERABLES - BLOOD ADMIN Final Result Performing Organization Address [facility] Co de Phone Number EXTERNAL * US [...] EXAM: US ABDOMEN LIMITED EXAM: US DUPLEX [id number] COMPLETE INDICATION: Post-op liver transplant DATE: 10/28/2024 [...] retrohepatic inferior vena cava is patent. [place] right kidney is partially visualized. A prominent [...] EXAM: US ABDOMEN LIMITED EXAM: US DUPLEX [id number] COMPLETE INDICATION: Post-op liver transplant DATE: 10/28/2024 [...] retrohepatic inferior vena cava is patent. [place] right kidney is partially visualized. A prominent [...] ORDERABLES Fi nal Result * US Duplex Ago-Lep-Slwnfqk Comp (10/28/2024 4:23 PM EDT) Anatomical Region [...] EXAM: US ABDOMEN LIMITED EXAM: US DUPLEX [id number] COMPLETE INDICATION: Post-op liver transplant DATE: 10/28/2024 [...] retrohepatic inferior vena cava is patent. [place] right kidney is partially visualized. A prominent [...] EXAM: US ABDOMEN LIMITED EXAM: US DUPLEX [id number] COMPLETE INDICATION: Post-op liver transplant DATE: 10/28/2024 [...] retrohepatic inferior vena cava is patent. [place] right kidney is partially visualized. A prominent [...] 10/28/2024 4:42 PM EDT Shay Plata MD [facility] US ORDERABLES Fi nal Result * (ABNORMAL) CBC, STAT (10/28/2024 2:49 PM EDT) WBC 4.0 3.8 - 10.8 10E3/uL 10/28/2024 3:07 PM EDT [facility] RBC 2.44(L) 4.20 - 5.80 10E6/uL 10/28/2024 3:07 PM EDT [facility] Hemoglobin 7.5(L) 13.2 - 17.1 g/dL 10/28/2024 3:07 PM EDT [facility] Hematocrit 21.4(L) 38.5 - 50.0 % 10/28/2024 3:07 PM EDT [facility] MCV 87.6 80.0 - 100.0 fL 10/28/2024 3:07 PM EDT [facility] MCH 30.6 27.0 - 33.0 pg 10/28/2024 3:07 PM EDT [facility] MCHC 34.9 32.0 - 36.0 g/dL 10/28/2024 3:07 PM EDT [facility] RDW 18.4(H) 11.0 - 15.0 % 10/28/2024 3:07 PM EDT [facility] Platelets 30(L) 140 - 400 10E3/uL 10/28/2024 3:07 PM EDT [facility] Comment: CNV Specimen checked for clots. None detected. MPV 7.7 7.5 - 11.5 fL 10/28/2024 3:07 PM EDT [facility] Whole Blood 10/28/2024 2:49 PM EDT 10/28/2024 2:53 PM EDT us Carlos Marks MD LAB BLOOD ORDERABLES Final Result [facility] [address] * ECG 12 lead (MUSE) (10/28/2024 1:22 PM EDT) 10/28/2024 1:22 PM EDT Narrative MUSE - 10/29/2024 10:34 PM EDT Ventricular Rate: 104 BPM Atrial Rate: 104 BPM P-R Interval: 172 ms QRS Duration: 90 ms QT: 354 ms QTc: 465 ms P [place]: 58 degrees R [place]: -19 degrees T [place]: 38 degrees Diagnosis Line: SINUS TACHYCARDIA ^ OTHERWISE NORMAL ECG ^ ^ Confirmed by JORGE MACIAS ([id number]) on 10/29/2024 10:34:22 PM us Hillary Fernandes PharmD ECG ORDERABLES Final Res ult MUSE * (ABNORMAL) POC Glucose Monitoring Device (10/28/2024 12:54 PM EDT) POC Glucose Monitoring Device 119(H) 70 - 100 mg/dL 10/28/2024 12:55 PM EDT [facility] Blood 10/28/2024 12:5 4 PM EDT 10/28/2024 12:55 PM EDT us Semaj Mcnair III, MD POINT OF CARE TEST ORDERABLES Final Result [facility] [address] * Transfuse RBC Transfusion Rate: Per dept routine (10/28/2024 12:31 PM EDT) us Carlos Marks MD NURSING TREATMENT ORDERABLE S - BLOOD ADMIN Final Result Performing Organization Address City/[facility]/ZIP Co de Phone Number EXTERNAL * Transfuse RBC Transfusion Rate: Per dept routine, 1 Units (10/28/2024 12:31 PM EDT) us Carlos Marks MD NURSING TREATMENT ORDERABLE S - BLOOD ADMIN Final Result Performing Organization Address City/[facility] Co de Phone Number EXTERNAL * Protime-INR, STAT (10/28/2024 11:09 AM EDT) Protime 14.3 12.1 - 15.1 seconds 10/28/2024 11:29 AM EDT [facility] INR 1.1 0.9 - 1.1 10/28/2024 11:29 AM EDT [facility] Comment: RECOMMENDED THERAPEUTIC RANGES USING INR : Stable oral anticoagulant therapy: 2.0 - 3.0 Mechanical prosthetic heart valve: 2.5 - 3.5 Recurrent acute myocardial infarction: 2.5 - 3.5 Plasma 10/28/2024 11:0 9 AM EDT 10/28/2024 11:16 AM EDT us Carlos Marks MD LAB BLOOD ORDERABLES Final Result Performing Organization Address City/[facility]/ZIP Co de Phone Number [facility] [address] * (ABNORMAL) Lactic Acid, STAT (10/28/2024 11:09 AM EDT) Lactate 0.3(L) 0.5 - 2.2 mmol/L 10/28/2024 11:37 AM EDT [facility] Plasma 10/28/2024 11:0 9 AM EDT 10/28/2024 11:15 AM EDT us Carlos Marks MD LAB BLOOD ORDERABLES Final Result [facility] [address] [place] [address] * Magnesium, STAT (10/28/2024 11:09 AM EDT) Pathologist [facility] Magnesium 2.1 1.5 - 2.5 mg/dL 10/28/2024 11:47 AM EDT [facility] Plasma 10/28/2024 11:0 9 AM EDT 10/28/2024 11:16 AM EDT us Carlos Marks MD LAB BLOOD ORDERABLES Final Result [facility] [address] * (ABNORMAL) Renal Function Panel w/EGFR, STAT (10/28/2024 11:09 AM EDT) Sodium 144 133 - 146 mmol/L 10/28/2024 11:47 AM EDT [facility] Potassium 3.4(L) 3.5 - 5.3 mmol/L 10/28/2024 11:47 AM EDT [facility] Chloride 112(H) 98 - 110 mmol/L 10/28/2024 11:47 AM EDT [facility] CO2 22 21 - 33 mmol/L 10/28/2024 11:47 AM EDT [facility] Anion Gap 10 3 - 16 mmol/L 10/28/2024 11:47 AM EDT [facility] BUN 57(H) 7 - 25 mg/dL 10/28/2024 11:47 AM EDT [facility] Creatinine 2.01(H) 0.60 - 1.30 mg/dL 10/28/2024 11:47 AM EDT [facility] Glucose 108(H) 70 - 100 mg/dL 10/28/2024 11:47 AM EDT [facility] Calcium 8.8 8.6 - 10.3 mg/dL 10/28/2024 11:47 AM EDT [facility] Phosphorus 4.0 2.1 - 4.7 mg/dL 10/28/2024 11:47 AM EDT [facility] Albumin 3.3(L) 3.5 - 5.7 g/dL 10/28/2024 11:47 AM EDT [facility] Osmolality, Calculated 314(H) 278 - 305 mOsm/kg 10/28/2024 11:47 AM EDT [facility] EGFR 42 10/28/2024 11:47 AM EDT [facility] Comment:As of 2021, the estimated GFR [...] LAB BLOOD ORDERABLES Final Result [facility] [address] [place] [address], [place] * (ABNORMAL) TEG-Bypass/ECMO/Liver HN (Factor function, Platelet/Fibrin Clot Strength w/Clot Breakdown, Heparinase In All Channels) (10/28/2024 11:09 AM EDT) Citrated Kaolin Reaction Time (TEGECMOLIVER) 9.2(H) 4.6 - 9.1 minutes 10/28/2024 12:30 PM EDT [facility] Citrated Kaolin W/Heparinase Reaction Time (TEGECMOLIVER) 9.6(H) 4.3 - 8.3 minutes 10/28/2024 12:30 PM EDT [facility] Citrated Kaolin Maximum Amplitude (TEGECMOLIVER) 51.2(L) 52.0 - 69.0 mm 10/28/2024 12:30 PM EDT [facility] Citrated Functional Fibrinogen W/Heparinase Maximum Amplitude(TEGEC MOLIVER) 21.6 15.0 - 34.0 mm 10/28/2024 12:30 PM EDT [facility] Citrated Rapid Teg W/Heparinase Maximum Amplitude (TEGECMOLIVER) 49.3(L) 53.0 - 69.0 mm 10/28/2024 12:30 PM EDT [facility] Citrated Kaolin w/Heparinase Percent Lysis (TEGECMOLIVER) 0.0 0.0 - 3.2 % 10/28/2024 12:30 PM EDT [facility] Whole Blood (Citrate) 10/28/2024 11:09 AM EDT 10/28/2024 11:14 AM EDT us Kemar Sahni MD LAB BLOOD ORDERABLES Final Result [facility] [address] [place] [address], [facility] * (ABNORMAL) CBC (10/28/2024 10:21 AM EDT) WBC 4.1 3.8 - 10.8 10E3/uL 10/28/2024 10:41 AM EDT [facility] RBC 2.30(L) 4.20 - 5.80 10E6/uL 10/28/2024 10:41 AM EDT [facility] Hemoglobin 7.1(L) 13.2 - 17.1 g/dL 10/28/2024 10:41 AM EDT [facility] Hematocrit 20.4(L) 38.5 - 50.0 % 10/28/2024 10:41 AM EDT [facility] MCV 88.5 80.0 - 100.0 fL 10/28/2024 10:41 AM EDT [facility] MCH 30.7 27.0 - 33.0 pg 10/28/2024 10:41 AM EDT [facility] MCHC 34.7 32.0 - 36.0 g/dL 10/28/2024 10:41 AM EDT [facility] RDW 18.7(H) 11.0 - 15.0 % 10/28/2024 10:41 AM EDT [facility] Platelets 37(L) 140 - 400 10E3/uL 10/28/2024 10:41 AM EDT [facility] Comment: CNV Specimen checked for clots. None detected. MPV 7.6 7.5 - 11.5 fL 10/28/2024 10:41 AM EDT [facility] Whole Blood 10/28/2024 10:2 1 AM EDT 10/28/2024 10:29 AM EDT Carlos Marks MD LAB BLOOD ORDERABLES Final Result [facility] [address] * POC Glucose Monitoring Device (10/28/2024 9:07 AM EDT) [facility] POC Glucose Monitoring Device 97 70 - 100 mg/dL 10/28/2024 9:08 AM EDT [facility] Blood 10/28/2024 9:07 AM EDT 10/28/2024 9:08 AM EDT Semaj Mcnair III, MD POINT OF CARE TEST ORDERABLES Final Result [facility] [address] * (ABNORMAL) Tacrolimus level (10/28/2024 8:20 AM EDT) Tacrolimus (LC-MS) <1.0(L) 3.0 - 15.0 ng/mL 10/28/2024 2:02 PM EDT [facility] Comment:Performed via liquid chromatography tandem mass spectrometry. Detection limit: 1 ng/mL. Individual target concentrations may vary due to target organ and time after transplant. This test has been developed and its performance characteristics determined by [facility] which is certified under [...] EDT 10/28/2024 8:29 AM EDT Priti Geiger [facility] LAB BLOOD ORDERABLES Final Re sult [facility] [address] [place] [address]. [address] * (ABNORMAL) POC Glucose Monitoring Device (10/28/2024 8:10 AM EDT) [facility] POC Glucose Monitoring Device 102(H) 70 - 100 mg/dL 10/28/2024 8:11 AM EDT [facility] Blood 10/28/2024 8:10 AM EDT 10/28/2024 8:11 AM EDT Semaj Mcnair III, MD POINT OF CARE TEST ORDERABLES Final Result [facility] [address] [facility]. [address] * POC Glucose Monitoring Device (10/28/2024 6:17 AM EDT) [facility] POC Glucose Monitoring Device 100 70 - 100 mg/dL 10/28/2024 6:18 AM EDT [facility] Blood 10/28/2024 6:17 AM EDT 10/28/2024 6:18 AM EDT Semaj Mcnair III, MD POINT OF CARE TEST ORDERABLES Final Result [facility] [address] * Prepare Platelets, leukoreduced (10/28/2024 6:15 AM EDT) Product Code U2185X07 HCLL Unit Number [id number] HCLL Dispense Status Presumed Transfused_PT HCLL Blood Expiration Date HCLL Coding System [id number] HCLL Product Code K2668A73 HCLL Unit Number [id number] HCLL Dispense Status Presumed Transfused_PT HCLL Blood Expiration Date [id number] HCLL Coding System BTQE200 HCLL us Attending Provider Unknown BLOOD BANK PRODUCT OR DERABLES Final Result HCLL * Prepare Fresh Frozen Plasma (10/28/2024 6:15 AM EDT) Product Code R9841S04 HCLL Unit Number [id number] HCLL Dispense Status Released from Crossmatch_RE HCLL Blood Expiration Date HCLL Coding System WFCS306 HCLL Product Code T6194K00 HCLL Unit Number [id number] HCLL Dispense Status Presumed Transfused_PT HCLL Blood Expiration Date HCLL Coding System EHTI221 HCLL Product Code A0510Z92 HCLL Unit Number [id number] HCLL Dispense Status Released from Crossmatch_RE HCLL Blood Expiration Date HCLL Coding System RGMC751 HCLL Product Code O3560M53 HCLL Unit Number [id number] HCLL Dispense Status Presumed Transfused_PT HCLL Blood Expiration Date [id number] HCLL Coding System YKPW356 HCLL Product Code J4509N61 HCLL Unit Number [id number] HCLL Dispense Status Released from Crossmatch_RE HCLL Blood Expiration Date 435379038908 HCLL Coding System XFRY014 HCLL us Attending Provider Unknown BLOOD BANK PRODUCT OR DERABLES Final Result Performing Organization Address City/[facility]/ZIP Co de Phone Number HCLL * Prepare RBC, leukoreduced (10/28/2024 6:15 AM EDT) Product Code S5644O00 HCLL Unit Number [id number] HCLL Dispense Status Released from Crossmatch_RE HCLL Blood Expiration Date 991605838414 HCLL Coding System TFMB823 HCLL Product Code L6763M90 HCLL Unit Number [id number] HCLL Dispense Status Presumed Transfused_PT HCLL Blood Expiration Date 493437235514 HCLL Coding System KCYU197 HCLL Product Code J4311V98 HCLL Unit Number [id number] HCLL Dispense Status Released from Crossmatch_RE HCLL Blood Expiration Date 781495293752 HCLL Coding System MEUZ698 HCLL Product Code C5585X41 HCLL Unit Number [id number] HCLL Dispense Status Presumed Transfused_PT HCLL Blood Expiration Date 772097316662 HCLL Coding System BPJW040 HCLL Product Code Q8070Y06 HCLL Unit Number [id number] HCLL Dispense Status Released from Crossmatch_RE HCLL Blood Expiration Date 895979196466 HCLL Coding System DBMS137 HCLL us Attending Provider Unknown BLOOD BANK PRODUCT OR DERABLES Final Result HCLL * Prepare Platelets, leukoreduced, 1 Units (10/28/2024 6:15 AM EDT) Product Code V4494C35 HCLL Unit Number [id number] HCLL Dispense Status Presumed Transfused_PT HCLL Blood Expiration Date 558075030456 HCLL Coding System FVSM047 HCLL Blood Bank Product John Pina MD BLOOD BANK PRODUCT ORDERABLES F inal Result Performing Organization Address [facility] Co de Phone Number HCLL * Prepare Cryoprecipitate, 1 Units (10/28/2024 6:15 AM EDT) Product Code S1097N94 HCLL Unit Number [id number] HCLL Dispense Status Presumed Transfused_PT HCLL Blood Expiration Date HCLL Coding System WQBA863 HCLL Product Code N9472V28 HCLL Unit Number [id number] HCLL Dispense Status Presumed Transfused_PT HCLL Blood Expiration Date HCLL Coding System KEFC982 HCLL Blood Bank Product John Pina MD BLOOD BANK PRODUCT ORDERABLES F inal Result Performing Organization Address [facility] de Phone Number HCLL * Prepare Fresh Frozen Plasma, 1 Units (10/28/2024 6:15 AM EDT) Product Code H3094G43 HCLL Unit Number [id number] HCLL Dispense Status Presumed Transfused_PT HCLL Blood Expiration Date 931762283154 HCLL Coding System QCBG264 HCLL Blood Bank Product John Pina MD BLOOD BANK PRODUCT ORDERABLES F inal Result Performing Organization Address [facility] de Phone Number HCLL * Prepare Cryoprecipitate, 1 Units (10/28/2024 6:15 AM EDT) Product Code C1117O36 HCLL Unit Number [id number] HCLL Dispense Status Presumed Transfused_PT HCLL Blood Expiration Date HCLL Coding System ZLSP986 HCLL Product Code W7135O12 HCLL Unit Number [id number] HCLL Dispense Status Presumed Transfused_PT HCLL Blood Expiration Date HCLL Coding System PXSZ596 HCLL Product Code E5992Q96 HCLL Unit Number [id number] HCLL Dispense Status Presumed Transfused_PT HCLL Blood Expiration Date HCLL Coding System TYEH273 HCLL Product Code U0455E70 HCLL Unit Number [id number] HCLL Dispense Status Presumed Transfused_PT HCLL Blood Expiration Date HCLL Coding System YCRB758 HCLL Blood Bank Product John Pina MD BLOOD BANK PRODUCT ORDERABLES F inal Result Performing Organization Address City/[facility]/ZIP Co de Phone Number HCLL * (ABNORMAL) POC Glucose Monitoring Device (10/28/2024 4:55 AM EDT) POC Glucose Monitoring Device 104(H) 70 - 100 mg/dL 10/28/2024 4:57 AM EDT [facility] Blood 10/28/2024 4:55 AM EDT 10/28/2024 4:57 AM EDT Semaj Mcnair III, MD POINT OF CARE TEST ORDERABLES Final Result [facility] [address] * TEG-Bypass/ECMO/Liver HN (Factor function, Platelet/Fibrin Clot Strength w/Clot Breakdown, Heparinase In All Channels) (10/28/2024 4:13 AM EDT) Citrated Kaolin Reaction Time (TEGECMOLIVER) 7.2 4.6 - 9.1 minutes 10/28/2024 5:38 AM EDT [facility] Citrated Kaolin W/Heparinase Reaction Time (TEGECMOLIVER) 7.8 4.3 - 8.3 minutes 10/28/2024 5:38 AM EDT [facility] Citrated Kaolin Maximum Amplitude (TEGECMOLIVER) 53.0 52.0 - 69.0 mm 10/28/2024 5:38 AM EDT [facility] Citrated Functional Fibrinogen W/Heparinase Maximum Amplitude(TEGEC MOLIVER) 21.4 15.0 - 34.0 mm 10/28/2024 5:38 AM EDT [facility] Citrated Rapid Teg W/Heparinase Maximum Amplitude (TEGECMOLIVER) 54.7 53.0 - 69.0 mm 10/28/2024 5:38 AM EDT [facility] Citrated Kaolin w/Heparinase Percent Lysis (TEGECMOLIVER) 0.0 0.0 - 3.2 % 10/28/2024 5:38 AM EDT [facility] Whole Blood (Citrate) 10/28/2024 4:13 AM EDT 10/28/2024 4:28 AM EDT Kemar Sahni MD LAB BLOOD ORDERABLES Final Result [facility] [address] * Protime-INR (10/28/2024 4:13 AM EDT) Protime 14.6 12.1 - 15.1 seconds 10/28/2024 4:53 AM EDT [facility] INR 1.1 0.9 - 1.1 10/28/2024 4:53 AM EDT [facility] Comment: RECOMMENDED THERAPEUTIC RANGES USING INR : Stable oral anticoagulant therapy: 2.0 - 3.0 Mechanical prosthetic heart valve: 2.5 - 3.5 Recurrent acute myocardial infarction: 2.5 - 3.5 Plasma 10/28/2024 4:13 AM EDT 10/28/2024 4:41 AM EDT Kemar Sahni MD LAB BLOOD ORDERABLES Final Result [facility] [address] [facility]. [address] * Magnesium (10/28/2024 4:13 AM EDT) Magnesium 2.2 1.5 - 2.5 mg/dL 10/28/2024 5:15 AM EDT [facility] Plasma 10/28/2024 4:13 AM EDT 10/28/2024 4:41 AM EDT us Kemar Sahni MD LAB BLOOD ORDERABLES Final Result Performing Organization Address City/[facility]/ZIP Co de Phone Number [facility] [address] * (ABNORMAL) Hepatic Function Panel (10/28/2024 4:13 AM EDT) Total Bilirubin 2.3(H) 0.0 - 1.5 mg/dL 10/28/2024 5:15 AM EDT [facility] Bilirubin, Direct 1.67(H) 0.00 - 0.40 mg/dL 10/28/2024 5:15 AM EDT [facility] AST 44(H) 13 - 39 U/L 10/28/2024 5:15 AM EDT [facility] ALT 101(H) 7 - 52 U/L 10/28/2024 5:15 AM EDT [facility] Alkaline Phosphatase 26(L) 36 - 125 U/L 10/28/2024 5:15 AM EDT [facility] Total Protein 4.5(L) 6.4 - 8.9 g/dL 10/28/2024 5:15 AM EDT [facility] Albumin 3.1(L) 3.5 - 5.7 g/dL 10/28/2024 5:15 AM EDT [facility] Bilirubin, Indirect 0.63 0.00 - 1.10 mg/dL 10/28/2024 5:15 AM EDT [facility] Plasma 10/28/2024 4:13 AM EDT 10/28/2024 4:41 AM EDT us Kemar Sahni MD LAB BLOOD ORDERABLES Final Result [facility] [address] [place] [address], [facility] * (ABNORMAL) Renal Function Panel w/EGFR (10/28/2024 4:13 AM EDT) Sodium 142 133 - 146 mmol/L 10/28/2024 5:15 AM EDT [facility] Potassium 3.5 3.5 - 5.3 mmol/L 10/28/2024 5:15 AM EDT [facility] Chloride 111(H) 98 - 110 mmol/L 10/28/2024 5:15 AM EDT [facility] CO2 22 21 - 33 mmol/L 10/28/2024 5:15 AM EDT [facility] Anion Gap 9 3 - 16 mmol/L 10/28/2024 5:15 AM EDT [facility] BUN 58(H) 7 - 25 mg/dL 10/28/2024 5:15 AM EDT [facility] Creatinine 2.24(H) 0.60 - 1.30 mg/dL 10/28/2024 5:15 AM EDT [facility] Glucose 103(H) 70 - 100 mg/dL 10/28/2024 5:15 AM EDT [facility] Calcium 9.1 8.6 - 10.3 mg/dL 10/28/2024 5:15 AM EDT [facility] Phosphorus 4.8(H) 2.1 - 4.7 mg/dL 10/28/2024 5:15 AM EDT [facility] Albumin 3.1(L) 3.5 - 5.7 g/dL 10/28/2024 5:15 AM EDT [facility] Osmolality, Calculated 310(H) 278 - 305 mOsm/kg 10/28/2024 5:15 AM EDT [facility] EGFR 37 10/28/2024 5:15 AM EDT [facility] Comment:As of 2021, the estimated GFR [...] LAB BLOOD ORDERABLES Final Result [facility] [address] [place] [address], [facility] * (ABNORMAL) CBC (10/28/2024 4:13 AM EDT) WBC 4.5 3.8 - 10.8 10E3/uL 10/28/2024 5:09 AM EDT [facility] RBC 2.39(L) 4.20 - 5.80 10E6/uL 10/28/2024 5:09 AM EDT [facility] Hemoglobin 7.3(L) 13.2 - 17.1 g/dL 10/28/2024 5:09 AM EDT [facility] Hematocrit 21.0(L) 38.5 - 50.0 % 10/28/2024 5:09 AM EDT [facility] MCV 87.8 80.0 - 100.0 fL 10/28/2024 5:09 AM EDT [facility] MCH 30.5 27.0 - 33.0 pg 10/28/2024 5:09 AM EDT [facility] MCHC 34.7 32.0 - 36.0 g/dL 10/28/2024 5:09 AM EDT [facility] RDW 18.7(H) 11.0 - 15.0 % 10/28/2024 5:09 AM EDT [facility] Platelets 38(L) 140 - 400 10E3/uL 10/28/2024 5:09 AM EDT [facility] Comment: CNV Specimen checked for clots. None detected. MPV 7.6 7.5 - 11.5 fL 10/28/2024 5:09 AM EDT [facility] Whole Blood 10/28/2024 4:13 AM EDT 10/28/2024 4:41 AM EDT Kemar Sahni MD LAB BLOOD ORDERABLES Final Result [facility] [address] [facility]. [address] * (ABNORMAL) POC Glucose Monitoring Device (10/28/2024 4:04 AM EDT) POC Glucose Monitoring Device 103(H) 70 - 100 mg/dL 10/28/2024 4:05 AM EDT [facility] Blood 10/28/2024 4:04 AM EDT 10/28/2024 4:05 AM EDT Semaj Mcnair III, MD POINT OF CARE TEST ORDERABLES Final Result Performing Organization Address [facility] Co de Phone Number [facility] [address] [facility]. [address] * (ABNORMAL) POC Glucose Monitoring Device (10/28/2024 3:00 AM EDT) POC Glucose Monitoring Device 106(H) 70 - 100 mg/dL 10/28/2024 3:01 AM EDT [facility] Blood 10/28/2024 3:00 AM EDT 10/28/2024 3:01 AM EDT Semaj Mcnair III, MD POINT OF CARE TEST ORDERABLES Final Result Performing Organization Address City/[facility]/ZIP Co de Phone Number [facility] [address] [facility]. [address] * (ABNORMAL) POC Glucose Monitoring Device (10/28/2024 2:32 AM EDT) POC Glucose Monitoring Device 109(H) 70 - 100 mg/dL 10/28/2024 2:33 AM EDT [facility] Blood 10/28/2024 2:32 AM EDT 10/28/2024 2:33 AM EDT us Semaj Mcnair III, MD POINT OF CARE TEST ORDERABLES Final Result Performing Organization Address City/[facility]/ZIP Co de Phone Number [facility] [address] [facility]. [address] * (ABNORMAL) POC Glucose Monitoring Device (10/28/2024 2:14 AM EDT) POC Glucose Monitoring Device 115(H) 70 - 100 mg/dL 10/28/2024 2:15 AM EDT [facility] Blood 10/28/2024 2:14 AM EDT 10/28/2024 2:15 AM EDT us Semaj Mcnair III, MD POINT OF CARE TEST ORDERABLES Final Result Performing Organization Address [facility] Co de Phone Number [facility] [address] [place] [address]. [address] * (ABNORMAL) POC Glucose Monitoring Device (10/28/2024 2:03 AM EDT) POC Glucose Monitoring Device 101(H) 70 - 100 mg/dL 10/28/2024 2:04 AM EDT [facility] Blood 10/28/2024 2:03 AM EDT 10/28/2024 2:04 AM EDT us Semaj Mcnair III, MD POINT OF CARE TEST ORDERABLES Final Result Performing Organization Address City/[facility] Co de Phone Number [facility] [address] * Transfuse RBC Transfusion Rate: Per [...] In All Channels) (10/28/2024 12:05 AM EDT) [facility] Citrated Kaolin Reaction Time (TEGECMOLIVER) 7.5 4.6 - 9.1 minutes 10/28/2024 1:22 AM EDT [facility] Citrated Kaolin W/Heparinase Reaction Time (TEGECMOLIVER) 7.7 4.3 - 8.3 minutes 10/28/2024 1:22 AM EDT [facility] Citrated Kaolin Maximum Amplitude (TEGECMOLIVER) 54.4 52.0 - 69.0 mm 10/28/2024 1:22 AM EDT [facility] Citrated Functional Fibrinogen W/Heparinase Maximum Amplitude(TEGEC MOLIVER) 20.4 15.0 - 34.0 mm 10/28/2024 1:22 AM EDT [facility] Citrated Rapid Teg W/Heparinase Maximum Amplitude (TEGECMOLIVER) 51.0(L) 53.0 - 69.0 mm 10/28/2024 1:22 AM EDT [facility] Citrated Kaolin w/Heparinase Percent Lysis (TEGECMOLIVER) 0.0 0.0 - 3.2 % 10/28/2024 1:22 AM EDT [facility] Whole Blood (Citrate) 10/28/2024 12:05 AM EDT 10/28/2024 12:09 AM EDT Kemar Sahni MD LAB BLOOD ORDERABLES Final Result [facility] [address] * Magnesium (10/28/2024 12:05 AM EDT) Magnesium 2.2 1.5 - 2.5 mg/dL 10/28/2024 1:59 AM EDT [facility] Plasma 10/28/2024 12:0 5 AM EDT 10/28/2024 12:11 AM EDT Kemar Sahni MD LAB BLOOD ORDERABLES Final Result [facility] [address] * (ABNORMAL) Renal Function Panel w/EGFR (10/28/2024 12:05 AM EDT) Sodium 144 133 - 146 mmol/L 10/28/2024 1:59 AM EDT [facility] Potassium 3.4(L) 3.5 - 5.3 mmol/L 10/28/2024 1:59 AM EDT [facility] Chloride 112(H) 98 - 110 mmol/L 10/28/2024 1:59 AM EDT [facility] CO2 19(L) 21 - 33 mmol/L 10/28/2024 1:59 AM EDT [facility] Anion Gap 13 3 - 16 mmol/L 10/28/2024 1:59 AM EDT [facility] BUN 59(H) 7 - 25 mg/dL 10/28/2024 1:59 AM EDT [facility] Creatinine 2.42(H) 0.60 - 1.30 mg/dL 10/28/2024 1:59 AM EDT [facility] Glucose 118(H) 70 - 100 mg/dL 10/28/2024 1:59 AM EDT [facility] Calcium 9.0 8.6 - 10.3 mg/dL 10/28/2024 1:59 AM EDT [facility] Phosphorus 5.3(H) 2.1 - 4.7 mg/dL 10/28/2024 1:59 AM EDT [facility] Albumin 3.1(L) 3.5 - 5.7 g/dL 10/28/2024 1:59 AM EDT [facility] Osmolality, Calculated 316(H) 278 - 305 mOsm/kg 10/28/2024 1:59 AM EDT [facility] EGFR 34 10/28/2024 1:59 AM EDT [facility] Comment:As of 2021, the estimated GFR [...] LAB BLOOD ORDERABLES Final Result [facility] [address] * (ABNORMAL) Differential (10/28/2024 12:05 AM EDT) Neutrophils Relative 88.6(H) 40.0 - 80.0 % 10/28/2024 12:41 AM EDT [facility] Lymphocytes Relative 2.5(L) 15.0 - 45.0 % 10/28/2024 12:41 AM EDT [facility] Monocytes Relative 6.1 0.0 - 12.0 % 10/28/2024 12:41 AM EDT [facility] Eosinophils Relative 2.4 0.0 - 8.0 % 10/28/2024 12:41 AM EDT [facility] Basophils Relative 0.4 0.0 - 1.0 % 10/28/2024 12:41 AM EDT [facility] nRBC 0 0 - 0 /100 WBC 10/28/2024 12:41 AM EDT [facility] Neutrophils Absolute 4,341 1,520 - 8,640 /uL 10/28/2024 12:41 AM EDT [facility] Lymphocytes Absolute 123(L) 570 - 4,860 /uL 10/28/2024 12:41 AM EDT [facility] Monocytes Absolute 299 0 - 1,296 /uL 10/28/2024 12:41 AM EDT [facility] Eosinophils Absolute 118 0 - 864 /uL 10/28/2024 12:41 AM EDT [facility] Basophils Absolute 20 0 - 108 /uL 10/28/2024 12:41 AM EDT [facility] Whole Blood 10/28/2024 12:0 5 AM EDT 10/28/2024 12:11 AM EDT Kemar Sahni MD LAB BLOOD ORDERABLES Final Result Performing Organization Address City/State/[facility] Co de Phone Number [facility] [address] * (ABNORMAL) CBC (10/28/2024 12:05 AM EDT) WBC 4.9 3.8 - 10.8 10E3/uL 10/28/2024 12:41 AM EDT [facility] RBC 2.18(L) 4.20 - 5.80 10E6/uL 10/28/2024 12:41 AM EDT [facility] Hemoglobin 6.7(L) 13.2 - 17.1 g/dL 10/28/2024 12:41 AM EDT [facility] Hematocrit 19.2(L) 38.5 - 50.0 % 10/28/2024 12:41 AM EDT [facility] MCV 87.8 80.0 - 100.0 fL 10/28/2024 12:41 AM EDT [facility] MCH 30.6 27.0 - 33.0 pg 10/28/2024 12:41 AM EDT [facility] MCHC 34.8 32.0 - 36.0 g/dL 10/28/2024 12:41 AM EDT [facility] RDW 19.6(H) 11.0 - 15.0 % 10/28/2024 12:41 AM EDT [facility] Platelets 45(L) 140 - 400 10E3/uL 10/28/2024 12:41 AM EDT [facility] Comment: CNV Specimen checked for clots. None detected. MPV 7.8 7.5 - 11.5 fL 10/28/2024 12:41 AM EDT [facility] Whole Blood 10/28/2024 12:0 5 AM EDT 10/28/2024 12:11 AM EDT Kemar Sahni MD LAB BLOOD ORDERABLES Final Result Performing Organization Address City/[facility]/ZIP Co de Phone Number [facility] [address] * (ABNORMAL) POC Glucose Monitoring Device (10/28/2024 12:03 AM EDT) POC Glucose Monitoring Device 122(H) 70 - 100 mg/dL 10/28/2024 12:04 AM EDT [facility] Blood 10/28/2024 12:0 3 AM EDT 10/28/2024 12:04 AM EDT Semaj Mcnair III, MD POINT OF CARE TEST ORDERABLES Final Result Performing Organization Address City/[facility]/ZIP Co de Phone Number [facility] [address] [facility]. [address] * (ABNORMAL) POC Glucose Monitoring Device (10/27/2024 10:03 PM EDT) POC Glucose Monitoring Device 127(H) 70 - 100 mg/dL 10/27/2024 10:03 PM EDT [facility] Blood 10/27/2024 10:0 3 PM EDT 10/27/2024 10:03 PM EDT us Semaj Mncair III, MD POINT OF CARE TEST ORDERABLES Final Result [facility] [address] [facility] * (ABNORMAL) POC Glucose Monitoring Device (10/27/2024 8:06 PM EDT) POC Glucose Monitoring Device 128(H) 70 - 100 mg/dL 10/27/2024 8:45 PM EDT [facility] Blood 10/27/2024 8:06 PM EDT 10/27/2024 8:45 PM EDT us Semaj Mcnair III, MD POINT OF CARE TEST ORDERABLES Final Result Performing Organization Address [facility]/ZIP Co de Phone Number [facility] [address] [facility] * (ABNORMAL) POC Glucose Monitoring Device (10/27/2024 6:00 PM EDT) POC Glucose Monitoring Device 128(H) 70 - 100 mg/dL 10/27/2024 6:00 PM EDT [facility] Blood 10/27/2024 6:00 PM EDT 10/27/2024 6:00 PM EDT Semaj Mcnair III, MD POINT OF CARE TEST ORDERABLES Final Result Performing Organization Address City/[facility]/ZIP Co de Phone Number [facility] [address] [facility] * Lactic Acid, STAT (10/27/2024 5:41 PM EDT) Lactate 0.5 0.5 - 2.2 mmol/L 10/27/2024 6:28 PM EDT [facility] Plasma 10/27/2024 5:41 PM EDT 10/27/2024 5:49 PM EDT Narrative [facility] - 10/27/2024 6:28 PM EDT Redraw John Moreno MD LAB BLOOD ORDERABLES Final R esult [facility] [address] [facility] [place] [address], [facility] * (ABNORMAL) Hepatic Function Panel, STAT (10/27/2024 5:13 PM EDT) Total Bilirubin 1.7(H) 0.0 - 1.5 mg/dL 10/27/2024 5:50 PM EDT [facility] Bilirubin, Direct 1.17(H) 0.00 - 0.40 mg/dL 10/27/2024 5:50 PM EDT [facility] AST 60(H) 13 - 39 U/L 10/27/2024 5:50 PM EDT [facility] ALT 134(H) 7 - 52 U/L 10/27/2024 5:50 PM EDT [facility] Alkaline Phosphatase 27(L) 36 - 125 U/L 10/27/2024 5:50 PM EDT [facility] Total Protein 4.1(L) 6.4 - 8.9 g/dL 10/27/2024 5:50 PM EDT [facility] Albumin 2.9(L) 3.5 - 5.7 g/dL 10/27/2024 5:50 PM EDT [facility] Bilirubin, Indirect 0.53 0.00 - 1.10 mg/dL 10/27/2024 5:50 PM EDT [facility] Plasma 10/27/2024 5:13 PM EDT 10/27/2024 5:23 PM EDT us Shay Plata MD LAB BLOOD ORDERABLES Final Result [facility] [address] [facility] [address], [facility] * (ABNORMAL) TEG-Bypass/ECMO/Liver HN (Factor function, Platelet/Fibrin Clot Strength w/Clot Breakdown, Heparinase In All Channels) (10/27/2024 5:13 PM EDT) Citrated Kaolin Reaction Time (TEGECMOLIVER) 8.0 4.6 - 9.1 minutes 10/27/2024 6:56 PM EDT [facility] Citrated Kaolin W/Heparinase Reaction Time (TEGECMOLIVER) 6.8 4.3 - 8.3 minutes 10/27/2024 6:56 PM EDT [facility] Citrated Kaolin Maximum Amplitude (TEGECMOLIVER) 55.4 52.0 - 69.0 mm 10/27/2024 6:56 PM EDT [facility] Citrated Functional Fibrinogen W/Heparinase Maximum Amplitude(TEGEC MOLIVER) 22.9 15.0 - 34.0 mm 10/27/2024 6:56 PM EDT [facility] Citrated Rapid Teg W/Heparinase Maximum Amplitude (TEGECMOLIVER) 50.8(L) 53.0 - 69.0 mm 10/27/2024 6:56 PM EDT [facility] Citrated Kaolin w/Heparinase Percent Lysis (TEGECMOLIVER) 0.1 0.0 - 3.2 % 10/27/2024 6:56 PM EDT [facility] Whole Blood (Citrate) 10/27/2024 5:13 PM EDT 10/27/2024 5:20 PM EDT us Kemar Sahni MD LAB BLOOD ORDERABLES Final Result [facility] [address] [place] [address], [facility] * (ABNORMAL) Protime-INR (10/27/2024 5:13 PM EDT) Protime 15.2(H) 12.1 - 15.1 seconds 10/27/2024 5:40 PM EDT [facility] INR 1.1 0.9 - 1.1 10/27/2024 5:40 PM EDT [facility] Comment: RECOMMENDED THERAPEUTIC RANGES USING INR : Stable oral anticoagulant therapy: 2.0 - 3.0 Mechanical prosthetic heart valve: 2.5 - 3.5 Recurrent acute myocardial infarction: 2.5 - 3.5 Plasma 10/27/2024 5:13 PM EDT 10/27/2024 5:23 PM EDT Kemar Sahni MD LAB BLOOD ORDERABLES Final Result [facility] [address] [facility] * Magnesium (10/27/2024 5:13 PM EDT) Magnesium 2.4 1.5 - 2.5 mg/dL 10/27/2024 5:53 PM EDT [facility] Plasma 10/27/2024 5:13 PM EDT 10/27/2024 5:23 PM EDT Kemar Sahni MD LAB BLOOD ORDERABLES Final Result [facility] [address] [facility] * (ABNORMAL) Hepatic Function Panel (10/27/2024 5:13 PM EDT) Total Bilirubin 1.7(H) 0.0 - 1.5 mg/dL 10/27/2024 5:53 PM EDT [facility] Bilirubin, Direct 1.10(H) 0.00 - 0.40 mg/dL 10/27/2024 5:53 PM EDT [facility] AST 62(H) 13 - 39 U/L 10/27/2024 5:53 PM EDT [facility] ALT 134(H) 7 - 52 U/L 10/27/2024 5:53 PM EDT [facility] Alkaline Phosphatase 27(L) 36 - 125 U/L 10/27/2024 5:53 PM EDT [facility] Total Protein 4.1(L) 6.4 - 8.9 g/dL 10/27/2024 5:53 PM EDT [facility] Albumin 2.9(L) 3.5 - 5.7 g/dL 10/27/2024 5:53 PM EDT [facility] Bilirubin, Indirect 0.60 0.00 - 1.10 mg/dL 10/27/2024 5:53 PM EDT [facility] Plasma 10/27/2024 5:13 PM EDT 10/27/2024 5:23 PM EDT Kemar Sahni MD LAB BLOOD ORDERABLES Final Result [facility] [address] [place] [id number], [facility] * (ABNORMAL) Renal Function Panel w/EGFR (10/27/2024 5:13 PM EDT) Sodium 142 133 - 146 mmol/L 10/27/2024 5:53 PM EDT [facility] Potassium 3.4(L) 3.5 - 5.3 mmol/L 10/27/2024 5:53 PM EDT [facility] Chloride 109 98 - 110 mmol/L 10/27/2024 5:53 PM EDT [facility] CO2 22 21 - 33 mmol/L 10/27/2024 5:53 PM EDT [facility] Anion Gap 11 3 - 16 mmol/L 10/27/2024 5:53 PM EDT [facility] BUN 61(H) 7 - 25 mg/dL 10/27/2024 5:53 PM EDT [facility] Creatinine 2.42(H) 0.60 - 1.30 mg/dL 10/27/2024 5:53 PM EDT [facility] Glucose 125(H) 70 - 100 mg/dL 10/27/2024 5:53 PM EDT [facility] Calcium 8.8 8.6 - 10.3 mg/dL 10/27/2024 5:53 PM EDT [facility] Phosphorus 5.7(H) 2.1 - 4.7 mg/dL 10/27/2024 5:53 PM EDT [facility] Albumin 2.9(L) 3.5 - 5.7 g/dL 10/27/2024 5:53 PM EDT [facility] Osmolality, Calculated 313(H) 278 - 305 mOsm/kg 10/27/2024 5:53 PM EDT [facility] EGFR 34 10/27/2024 5:53 PM EDT [facility] Comment:As of 2021, the estimated GFR [...] LAB BLOOD ORDERABLES Final Result [facility] [address] * (ABNORMAL) CBC (10/27/2024 5:13 PM EDT) WBC 4.9 3.8 - 10.8 10E3/uL 10/27/2024 6:14 PM EDT [facility] RBC 2.44(L) 4.20 - 5.80 10E6/uL 10/27/2024 6:14 PM EDT [facility] Hemoglobin 7.4(L) 13.2 - 17.1 g/dL 10/27/2024 6:14 PM EDT [facility] Hematocrit 21.4(L) 38.5 - 50.0 % 10/27/2024 6:14 PM EDT [facility] MCV 87.6 80.0 - 100.0 fL 10/27/2024 6:14 PM EDT [facility] MCH 30.3 27.0 - 33.0 pg 10/27/2024 6:14 PM EDT [facility] MCHC 34.6 32.0 - 36.0 g/dL 10/27/2024 6:14 PM EDT [facility] RDW 19.6(H) 11.0 - 15.0 % 10/27/2024 6:14 PM EDT [facility] Platelets 47(L) 140 - 400 10E3/uL 10/27/2024 6:14 PM EDT [facility] Comment: CNV Specimen checked for clots. None detected. MPV 8.1 7.5 - 11.5 fL 10/27/2024 6:14 PM EDT [facility] Whole Blood 10/27/2024 5:13 PM EDT 10/27/2024 5:23 PM EDT Kemar Sahni MD LAB BLOOD ORDERABLES Final Result [facility] [address] [facility]. [address] * (ABNORMAL) POC Glucose Monitoring Device (10/27/2024 3:57 PM EDT) [facility] POC Glucose Monitoring Device 131(H) 70 - 100 mg/dL 10/27/2024 3:58 PM EDT [facility] Blood 10/27/2024 3:57 PM EDT 10/27/2024 3:58 PM EDT Semaj Mcnair III, MD POINT OF CARE TEST ORDERABLES Final Result Performing Organization Address City/[facility]/ZIP Co de Phone Number [facility] [address] * (ABNORMAL) CBC, STAT (10/27/2024 2:40 PM EDT) WBC 5.8 3.8 - 10.8 10E3/uL 10/27/2024 2:54 PM EDT [facility] RBC 2.43(L) 4.20 - 5.80 10E6/uL 10/27/2024 2:54 PM EDT [facility] Hemoglobin 7.5(L) 13.2 - 17.1 g/dL 10/27/2024 2:54 PM EDT [facility] Hematocrit 21.5(L) 38.5 - 50.0 % 10/27/2024 2:54 PM EDT [facility] MCV 88.2 80.0 - 100.0 fL 10/27/2024 2:54 PM EDT [facility] MCH 30.7 27.0 - 33.0 pg 10/27/2024 2:54 PM EDT [facility] MCHC 34.8 32.0 - 36.0 g/dL 10/27/2024 2:54 PM EDT [facility] RDW 19.1(H) 11.0 - 15.0 % 10/27/2024 2:54 PM EDT [facility] Platelets 50(L) 140 - 400 10E3/uL 10/27/2024 2:54 PM EDT [facility] MPV 7.5 7.5 - 11.5 fL 10/27/2024 2:54 PM EDT [facility] Whole Blood 10/27/2024 2:40 PM EDT 10/27/2024 2:44 PM EDT us John Moreno MD LAB BLOOD ORDERABLES Final R esult [facility] [address] [place] [address], [facility] * (ABNORMAL) Blood Gas, Arterial, STAT (10/27/2024 2:40 PM EDT) O2 Sat, Arterial 98 10/27/2024 2:46 PM EDT [facility] FIO2 RA 10/27/2024 2:46 PM EDT [facility] pH, Arterial 7.37 7.35 - 7.45 10/27/2024 2:46 PM EDT [facility] pCO2, Arterial 35 35 - 45 mm Hg 10/27/2024 2:46 PM EDT [facility] pO2, Arterial 92 80 - 100 mm Hg 10/27/2024 2:46 PM EDT [facility] HCO3, Arterial 21(L) 22 - 26 mmol/L 10/27/2024 2:46 PM EDT [facility] CO2 Content,Arteri al 21(L) 23 - 27 mmol/L 10/27/2024 2:46 PM EDT [facility] Base Excess, Arterial -4.6(L) -2.0 - 3.0 mmol/L 10/27/2024 2:46 PM EDT [facility] %HBO2, Arterial 95.4 95.0 - 98.0 % 10/27/2024 2:46 PM EDT [facility] Carboxyhemoglo bin, Arterial 1.6 % 10/27/2024 2:46 PM EDT [facility] Comment: CARBOXYHEMOGLOBIN (CO) REFERENCE RANGES: Non-Smokers: <2 % Smokers: <8 % TOXIC: >20 % Methemoglobin, Arterial 1.0 0.0 - 1.5 % 10/27/2024 2:46 PM EDT [facility] Reduced hemoglobin, Arterial 2.1 0.0 - 5.0 % 10/27/2024 2:46 PM EDT [facility] Blood, Arterial 10/27/2024 2 :40 PM EDT 10/27/2024 2:44 PM EDT Narrative [facility] - 10/27/2024 2:46 PM EDT Post extubation John Moreno MD LAB BLOOD ORDERABLES Final R esult [facility] [address] * (ABNORMAL) POC Glucose Monitoring Device (10/27/2024 2:06 PM EDT) POC Glucose Monitoring Device 134(H) 70 - 100 mg/dL 10/27/2024 2:06 PM EDT [facility] Blood 10/27/2024 2:06 PM EDT 10/27/2024 2:06 PM EDT Semaj Mcnair III, MD POINT OF CARE TEST ORDERABLES Final Result [facility] [address] * (ABNORMAL) Blood gas, arterial (10/27/2024 12:35 PM EDT) O2 Sat, Arterial 99 10/27/2024 12:46 PM EDT [facility] FIO2 SBT 30% 10/27/2024 12:46 PM EDT [facility] pH, Arterial 7.35 7.35 - 7.45 10/27/2024 12:46 PM EDT [facility] pCO2, Arterial 37 35 - 45 mm Hg 10/27/2024 12:46 PM EDT [facility] pO2, Arterial 182(H) 80 - 100 mm Hg 10/27/2024 12:46 PM EDT [facility] HCO3, Arterial 21(L) 22 - 26 mmol/L 10/27/2024 12:46 PM EDT [facility] CO2 Content,Arteri al 22(L) 23 - 27 mmol/L 10/27/2024 12:46 PM EDT [facility] Base Excess, Arterial -4.8(L) -2.0 - 3.0 mmol/L 10/27/2024 12:46 PM EDT [facility] %HBO2, Arterial 96.3 95.0 - 98.0 % 10/27/2024 12:46 PM EDT [facility] Carboxyhemoglo bin, Arterial 1.7 % 10/27/2024 12:46 PM EDT [facility] Comment: CARBOXYHEMOGLOBIN (CO) REFERENCE RANGES: Non-Smokers: <2 % Smokers: <8 % TOXIC: >20 % Methemoglobin, Arterial 1.4 0.0 - 1.5 % 10/27/2024 12:46 PM EDT [facility] Reduced hemoglobin, Arterial 0.6 0.0 - 5.0 % 10/27/2024 12:46 PM EDT [facility] Blood, Arterial 10/27/2024 1 2:35 PM EDT 10/27/2024 12:42 PM EDT Narrative [facility] - 10/27/2024 12:46 PM EDT Please obtain post SBT us Shay Sifuentes MD LAB BLOOD ORDERABLES Final Resu lt [facility] [address] [place] [address], [facility] * (ABNORMAL) TEG-Bypass/ECMO/Liver HN (Factor function, Platelet/Fibrin Clot Strength w/Clot Breakdown, Heparinase In All Channels) (10/27/2024 12:07 PM EDT) Citrated Kaolin Reaction Time (TEGECMOLIVER) 7.9 4.6 - 9.1 minutes 10/27/2024 1:24 PM EDT [facility] Citrated Kaolin W/Heparinase Reaction Time (TEGECMOLIVER) 8.3 4.3 - 8.3 minutes 10/27/2024 1:[address] [facility] Citrated Kaolin Maximum Amplitude (TEGECMOLIVER) 52.0 52.0 - 69.0 mm 10/27/2024 1:[address] [facility] Citrated Functional Fibrinogen W/Heparinase Maximum Amplitude(TEGEC MOLIVER) 20.1 15.0 - 34.0 mm 10/27/2024 1:[address] [facility] Citrated Rapid Teg W/Heparinase Maximum Amplitude (TEGECMOLIVER) 49.4(L) 53.0 - 69.0 mm 10/27/2024 1:[address] [facility] Citrated Kaolin w/Heparinase Percent Lysis (TEGECMOLIVER) 0.0 0.0 - 3.2 % 10/27/2024 1:[address] [facility] Whole Blood (Citrate) 10/27/2024 12:07 PM EDT 10/27/2024 12:09 PM EDT Kemar Sahni MD LAB BLOOD ORDERABLES Final Result Performing Organization Address City/State/[facility] Co de Phone Number [facility] [address] * (ABNORMAL) POC Glucose Monitoring Device (10/27/2024 12:01 PM EDT) POC Glucose Monitoring Device 121(H) 70 - 100 mg/dL 10/27/2024 12:[address] [facility] Blood 10/27/2024 12:0 1 PM EDT 10/27/2024 12:01 PM EDT Semaj Mcnair III, MD POINT OF CARE TEST ORDERABLES Final Result Performing Organization Address [facility] Co de Phone Number [facility] [address] * (ABNORMAL) POC Glucose Monitoring Device (10/27/2024 10:59 AM EDT) POC Glucose Monitoring Device 126(H) 70 - 100 mg/dL 10/27/2024 11:10 AM EDT [facility] Blood 10/27/2024 10:5 9 AM EDT 10/27/2024 11:10 AM EDT us Semaj Mcnair III, MD POINT OF CARE TEST ORDERABLES Final Result Performing Organization Address [facility] de Phone Number [facility] [address] * ECG 12 lead (MUSE) (10/27/2024 10:17 AM EDT) 10/27/2024 10:1 7 AM EDT Narrative MUSE - 10/27/2024 2:51 PM EDT Ventricular Rate: 91 BPM Atrial Rate: 91 BPM P-R Interval: 168 ms QRS Duration: 90 ms QT: 274 ms QTc: 337 ms P [place]: 60 degrees R [place]: -30 degrees T [place]: -15 degrees Diagnosis Line: NORMAL SINUS RHYTHM ^ LEFT AXIS DEVIATION, LEFT ANTERIOR HEMIBLOCK ^ NONSPECIFIC T WAVE CHANGE ^ ABNORMAL ECG ^ ^ Confirmed by MD ROLLY, [facility] ([id number]) on 10/27/2024 2:51:52 PM us Shay Sifuentes MD ECG ORDERABLES Final Result Performing Organization Address [facility] Co de Phone Number MUSE * (ABNORMAL) POC Glucose Monitoring Device (10/27/2024 10:00 AM EDT) POC Glucose Monitoring Device 121(H) 70 - 100 mg/dL 10/27/2024 10:01 AM EDT [facility] Blood 10/27/2024 10:0 0 AM EDT 10/27/2024 10:01 AM EDT Semaj Mcnair III, MD POINT OF CARE TEST ORDERABLES Final Result [facility] DARVIN [address] [place] [address], [facility] * US Renal Transplant (10/27/2024 9:51 [...] US ORDERABLES Final Result * US Duplex Nib-Lku-Mcnkycp Comp (10/27/2024 9:51 AM EDT) Anatomical Region [...] EXAM: US ABDOMEN LIMITED EXAM: US DUPLEX [id number] COMPLETE INDICATION: Post-op liver transplant COMPARISON: None [...] absent.. Pancreas: Obscured by overlying bowel gas. [place] right kidney: 12.5 cm in length. Normal [...] EXAM: US ABDOMEN LIMITED EXAM: US DUPLEX [id number] COMPLETE INDICATION: Post-op liver transplant COMPARISON: None [...] absent.. Pancreas: Obscured by overlying bowel gas. [place] right kidney: 12.5 cm in length. Normal [...] EXAM: US ABDOMEN LIMITED EXAM: US DUPLEX [id number] COMPLETE INDICATION: Post-op liver transplant COMPARISON: None [...] absent.. Pancreas: Obscured by overlying bowel gas. [place] right kidney: 12.5 cm in length. Normal [...] EXAM: US ABDOMEN LIMITED EXAM: US DUPLEX [id number] COMPLETE INDICATION: Post-op liver transplant COMPARISON: None [...] absent.. Pancreas: Obscured by overlying bowel gas. [place] right kidney: 12.5 cm in length. Normal [...] Glucose Monitoring Device (10/27/2024 9:05 AM EDT) [facility] POC Glucose Monitoring Device 118(H) 70 - 100 mg/dL 10/27/2024 9:06 AM EDT [facility] Blood 10/27/2024 9:05 AM EDT 10/27/2024 9:06 AM EDT us Semaj Mcnair III, MD POINT OF CARE TEST ORDERABLES Final Result [facility] [address] [place] [address], [facility] * X-ray Portable Chest (10/27/2024 8:58 [...] - 15.1 seconds 10/27/2024 8:35 AM EDT [facility] INR 1.2(H) 0.9 - 1.1 10/27/2024 8:35 AM EDT [facility] Comment: RECOMMENDED THERAPEUTIC RANGES USING INR : Stable oral anticoagulant therapy: 2.0 - 3.0 Mechanical prosthetic heart valve: 2.5 - 3.5 Recurrent acute myocardial infarction: 2.5 - 3.5 Plasma 10/27/2024 8:16 AM EDT 10/27/2024 8:20 AM EDT John Moreno MD LAB BLOOD ORDERABLES Final R esult Performing Organization Address City/[facility] Co de Phone Number [facility] [address] * Magnesium (10/27/2024 8:00 AM EDT) Magnesium 1.8 1.5 - 2.5 mg/dL 10/27/2024 10:50 AM EDT [facility] Plasma 10/27/2024 8:00 AM EDT 10/27/2024 10:31 AM EDT Kemar Sahni MD LAB BLOOD ORDERABLES Final Result [facility] [address] [place] [address], [facility] * (ABNORMAL) Renal Function Panel w/EGFR (10/27/2024 8:00 AM EDT) Sodium 142 133 - 146 mmol/L 10/27/2024 10:18 AM EDT [facility] Potassium 3.0(L) 3.5 - 5.3 mmol/L 10/27/2024 10:18 AM EDT [facility] Chloride 109 98 - 110 mmol/L 10/27/2024 10:18 AM EDT [facility] CO2 21 21 - 33 mmol/L 10/27/2024 10:18 AM EDT [facility] Anion Gap 12 3 - 16 mmol/L 10/27/2024 10:18 AM EDT [facility] BUN 59(H) 7 - 25 mg/dL 10/27/2024 10:18 AM EDT [facility] Creatinine 2.54(H) 0.60 - 1.30 mg/dL 10/27/2024 10:18 AM EDT [facility] Glucose 111(H) 70 - 100 mg/dL 10/27/2024 10:18 AM EDT [facility] Calcium 9.1 8.6 - 10.3 mg/dL 10/27/2024 10:18 AM EDT [facility] Phosphorus 5.5(H) 2.1 - 4.7 mg/dL 10/27/2024 10:18 AM EDT [facility] Albumin 3.0(L) 3.5 - 5.7 g/dL 10/27/2024 10:18 AM EDT [facility] Osmolality, Calculated 311(H) 278 - 305 mOsm/kg 10/27/2024 10:18 AM EDT [facility] EGFR 32 10/27/2024 10:18 AM EDT [facility] Comment:As of 2021, the estimated GFR [...] LAB BLOOD ORDERABLES Final Result [facility] [address] * (ABNORMAL) Hepatic Function Panel, STAT (10/27/2024 8:00 AM EDT) Total Bilirubin 1.3 0.0 - 1.5 mg/dL 10/27/2024 8:51 AM EDT [facility] Bilirubin, Direct 0.93(H) 0.00 - 0.40 mg/dL 10/27/2024 8:51 AM EDT [facility] AST 88(H) 13 - 39 U/L 10/27/2024 8:51 AM EDT [facility] ALT 149(H) 7 - 52 U/L 10/27/2024 8:51 AM EDT [facility] Alkaline Phosphatase 26(L) 36 - 125 U/L 10/27/2024 8:51 AM EDT [facility] Total Protein 4.0(L) 6.4 - 8.9 g/dL 10/27/2024 8:51 AM EDT [facility] Albumin 3.0(L) 3.5 - 5.7 g/dL 10/27/2024 8:51 AM EDT [facility] Bilirubin, Indirect 0.37 0.00 - 1.10 mg/dL 10/27/2024 8:51 AM EDT [facility] Plasma 10/27/2024 8:00 AM EDT 10/27/2024 8:20 AM EDT Semaj Mcnair III, MD LAB BLOOD ORDERABLE S Final Result Performing Organization Address City/[facility]/ZIP Co de Phone Number [facility] [address] [facility]. [address] * (ABNORMAL) Lactic Acid, STAT (10/27/2024 8:00 AM EDT) Lactate 0.4(L) 0.5 - 2.2 mmol/L 10/27/2024 8:43 AM EDT [facility] Plasma 10/27/2024 8:00 AM EDT 10/27/2024 8:20 AM EDT Semaj Mcnair III, MD LAB BLOOD ORDERABLE S Final Result Performing Organization Address [facility] de Phone Number [facility] [address] [facility]. [address] * (ABNORMAL) Blood Gas, Arterial, STAT (10/27/2024 8:00 AM EDT) O2 Sat, Arterial 100 10/27/2024 8:23 AM EDT [facility] pH, Arterial 7.36 7.35 - 7.45 10/27/2024 8:23 AM EDT [facility] pCO2, Arterial 37 35 - 45 mm Hg 10/27/2024 8:23 AM EDT [facility] pO2, Arterial 245(H) 80 - 100 mm Hg 10/27/2024 8:23 AM EDT [facility] HCO3, Arterial 22 22 - 26 mmol/L 10/27/2024 8:23 AM EDT [facility] CO2 Content,Arteri al 22(L) 23 - 27 mmol/L 10/27/2024 8:23 AM EDT [facility] Base Excess, Arterial -4.2(L) -2.0 - 3.0 mmol/L 10/27/2024 8:23 AM EDT [facility] %HBO2, Arterial 96.5 95.0 - 98.0 % 10/27/2024 8:23 AM EDT [facility] Carboxyhemoglo bin, Arterial 2.2 % 10/27/2024 8:23 AM EDT [facility] Comment: CARBOXYHEMOGLOBIN (CO) REFERENCE RANGES: Non-Smokers: <2 % Smokers: <8 % TOXIC: >20 % Methemoglobin, Arterial 1.2 0.0 - 1.5 % 10/27/2024 8:23 AM EDT [facility] Reduced hemoglobin, Arterial 0.0 0.0 - 5.0 % 10/27/2024 8:23 AM EDT [facility] Blood, Arterial 10/27/2024 8 :00 AM EDT 10/27/2024 8:19 AM EDT Narrative [facility] - 10/27/2024 8:23 AM EDT Specimen is beyond 15 minutes from time of collection. Results may be compromised. Review results critically. Kemar Sahni MD LAB BLOOD ORDERABLES Final Result [facility] [address] [place] [address], [facility] * (ABNORMAL) TEG-Bypass/ECMO/Liver HN (Factor function, Platelet/Fibrin Clot Strength w/Clot Breakdown, Heparinase In All Channels) (10/27/2024 8:00 AM EDT) [facility] Citrated Kaolin Reaction Time (TEGECMOLIVER) 7.8 4.6 - 9.1 minutes 10/27/2024 9:39 AM EDT [facility] Citrated Kaolin W/Heparinase Reaction Time (TEGECMOLIVER) 8.0 4.3 - 8.3 minutes 10/27/2024 9:39 AM EDT [facility] Citrated Kaolin Maximum Amplitude (TEGECMOLIVER) 52.7 52.0 - 69.0 mm 10/27/2024 9:39 AM EDT [facility] Citrated Functional Fibrinogen W/Heparinase Maximum Amplitude(TEGEC MOLIVER) 19.0 15.0 - 34.0 mm 10/27/2024 9:39 AM EDT [facility] Citrated Rapid Teg W/Heparinase Maximum Amplitude (TEGECMOLIVER) 49.5(L) 53.0 - 69.0 mm 10/27/2024 9:39 AM EDT [facility] Citrated Kaolin w/Heparinase Percent Lysis (TEGECMOLIVER) 0.0 0.0 - 3.2 % 10/27/2024 9:39 AM EDT [facility] Whole Blood (Citrate) 10/27/2024 8:00 AM EDT 10/27/2024 8:19 AM EDT Kemar Sahni MD LAB BLOOD ORDERABLES Final Result Performing Organization Address [facility] de Phone Number [facility] [address] [facility]. 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 EBV IGG NUM 314.00(H) 0.00 - 17.99 U/mL 10/27/2024 11:30 AM EDT [facility] Serum 10/27/2024 8:00 AM EDT 10/27/2024 8:20 AM EDT Kemar Sahni MD LAB BLOOD ORDERABLES Final Result Performing Organization Address [facility] de Phone Number [facility] [address] [facility]. [address] * Hemoglobin A1c (10/27/2024 8:00 AM EDT) Hemoglobin A1C 5.0 4.0 - 5.6 % 10/27/2024 11:12 AM EDT [facility] Comment: Hemoglobin A1c Interpretation Guidelines: Normal: [...] Final Result Performing Organization Address City/[facility]/ZIP Co de Phone Number [facility] [address] * (ABNORMAL) POC Glucose Monitoring Device (10/27/2024 7:59 AM EDT) [facility] Signature POC Glucose Monitoring Device 113(H) 70 - 100 mg/dL 10/27/2024 7:[address] [facility] Blood 10/27/2024 7:59 AM EDT 10/27/2024 7:59 AM EDT Semaj Mcnair III, MD POINT OF CARE TEST ORDERABLES Final Result Performing Organization Address [facility] de Phone Number [facility] [address] * X-ray Abdomen AP view (10/27/2024 [...] Units (10/27/2024 6:16 AM EDT) Product Code K6018R82 HCLL Unit Number [id number] HCLL Dispense Status Presumed Transfused_PT HCLL Blood Expiration Date [id number] HCLL Coding System [id number] HCLL Product Code B3624M67 HCLL Unit Number [id number] HCLL Dispense Status Presumed Transfused_PT HCLL Blood Expiration Date 741126985336 HCLL Coding System [id number] HCLL Blood Bank Product John Pina MD BLOOD BANK PRODUCT ORDERABLES F inal Result Performing Organization Address [facility] Co de Phone Number HCLL * Prepare Platelets, leukoreduced, 1 Units (10/27/2024 6:16 AM EDT) Product Code D3750F37 HCLL Unit Number [id number] HCLL Dispense Status Presumed Transfused_PT HCLL Blood Expiration Date 666485974997 HCLL Coding System [id number] HCLL Blood Bank Product Eber Quinones MD BLOOD BANK PRODUCT ORDER PAL Final Result Performing Organization Address [facility] de Phone Number HC[facility] * Prepare Cryoprecipitate, 1 Units (10/27/2024 6:16 AM EDT) Product Code E8892L22 HCLL Unit Number [id number] HCLL Dispense Status Presumed Transfused_PT HCLL Blood Expiration Date HCLL Coding System EOGU852 HCLL Product Code C4222T45 HCLL Unit Number [id number] HCLL Dispense Status Presumed Transfused_PT HCLL Blood Expiration Date 499651054832 HCLL Coding System [id number] HCLL Blood Bank Product Eber Quinones MD BLOOD BANK PRODUCT ORDER PAL Final Result Performing Organization Address City/[facility] Co de Phone Number [facility] * Prepare Fresh Frozen Plasma, 10 Units (10/27/2024 6:16 AM EDT) Product Code E4799Z84 HCLL Unit Number [id number] HCLL Dispense Status Presumed Transfused_PT HCLL Blood Expiration Date 705844149922 HCLL Coding System RXSE541 HCLL Product Code A2657S30 HCLL Unit Number [id number] HCLL Dispense Status Presumed Transfused_PT HCLL Blood Expiration Date 643273916943 HCLL Coding System XBKD809 HCLL Product Code N8718H27 HCLL Unit Number [id number] HCLL Dispense Status Presumed Transfused_PT HCLL Blood Expiration Date 596380825334 HCLL Coding System KLRW987 HCLL Product Code D0744J22 HCLL Unit Number [id number] HCLL Dispense Status Presumed Transfused_PT HCLL Blood Expiration Date HCLL Coding System EGTY192 HCLL Product Code K5252X54 HCLL Unit Number [id number] HCLL Dispense Status Released from Crossmatch_RE HCLL Blood Expiration Date 177077226784 HCLL Coding System CFZU479 HCLL Product Code K0929Z67 HCLL Unit Number [id number] HCLL Dispense Status Released from Crossmatch_RE HCLL Blood Expiration Date HCLL Coding System URBH137 HCLL Product Code Y7708T41 HCLL Unit Number [id number] HCLL Dispense Status Presumed Transfused_PT HCLL Blood Expiration Date HCLL Coding System TDUD466 HCLL Product Code C9664G59 HCLL Unit Number [id number] HCLL Dispense Status Presumed Transfused_PT HCLL Blood Expiration Date 304891960613 HCLL Coding System SXFH778 HCLL Product Code M3405V65 HCLL Unit Number [id number] HCLL Dispense Status Presumed Transfused_PT HCLL Blood Expiration Date HCLL Coding System BPSX671 HCLL Product Code K9631X69 HCLL Unit Number [id number] HCLL Dispense Status Presumed Transfused_PT HCLL Blood Expiration Date 515368887396 HCLL Coding System QPGB943 HCLL Blood Bank Product us Leandra Og MD BLOOD BANK PRODUCT ORD ERABLES Final Result [facility] * Prepare Platelets, leukoreduced, 1 Units (10/27/2024 6:16 AM EDT) Product Code V1577T06 HCLL Unit Number [id number] HCLL Dispense Status Presumed Transfused_PT HCLL Blood Expiration Date 236340274265 HCLL Coding System ZAUC828 HCLL Blood Bank Product us Ben lBake MD BLOOD BANK PRODUCT ORDERABLES Final Result Performing Organization Address [facility] de Phone Number HCLL * Prepare Fresh Frozen Plasma (10/27/2024 6:15 AM EDT) Product Code F0522G33 HCLL Unit Number [id number] HCLL Dispense Status Presumed Transfused_PT HCLL Blood Expiration Date HCLL Coding System VBXM082 HCLL Product Code E0223O74 HCLL Unit Number [id number] HCLL Dispense Status Released from Crossmatch_RE HCLL Blood Expiration Date 592785262078 HCLL Coding System UMOP479 HCLL Product Code S5347J31 HCLL Unit Number [id number] HCLL Dispense Status Presumed Transfused_PT HCLL Blood Expiration Date HCLL Coding System JYRJ215 HCLL Product Code P0384D38 HCLL Unit Number [id number] HCLL Dispense Status Presumed Transfused_PT HCLL Blood Expiration Date HCLL Coding System YAGY265 HCLL Product Code R8210G04 HCLL Unit Number [id number] HCLL Dispense Status Released from Crossmatch_RE HCLL Blood Expiration Date HCLL Coding System MCCU574 HCLL us Attending Provider Unknown BLOOD BANK PRODUCT OR DERABLES Final Result Performing Organization Address [facility] Co de Phone Number HC[facility] * Prepare RBC, leukoreduced (10/27/2024 6:15 AM EDT) Product Code Z1711K95 HCLL Unit Number [id number] HCLL Dispense Status Presumed Transfused_PT HCLL Blood Expiration Date HCLL Coding System CIEJ863 HCLL Product Code W6738A51 HCLL Unit Number [id number] HCLL Dispense Status Released from Crossmatch_RE HCLL Blood Expiration Date HCLL Coding System HRRG296 HCLL Product Code Z2168A02 HCLL Unit Number [id number] HCLL Dispense Status Released from Crossmatch_RE HCLL Blood Expiration Date 530988426947 HCLL Coding System TWYM686 HCLL Product Code C0821O18 HCLL Unit Number [id number] HCLL Dispense Status Released from Crossmatch_RE HCLL Blood Expiration Date 372073642921 HCLL Coding System RQLS331 HCLL Product Code V7746B93 HCLL Unit Number [id number] HCLL Dispense Status Released from Crossmatch_RE HCLL Blood Expiration Date 134372959813 HCLL Coding System VWRW695 HCLL Attending Provider Unknown BLOOD BANK PRODUCT OR DERABLES Final Result [facility] * Prepare RBC, leukoreduced, 10 Units (10/27/2024 6:15 AM EDT) Product Code Z3384V66 HCLL Unit Number [id number] HCLL Dispense Status Presumed Transfused_PT HCLL Blood Expiration Date HCLL Coding System MGFY180 HCLL Product Code X8390Y28 HCLL Unit Number [id number] HCLL Dispense Status Presumed Transfused_PT HCLL Blood Expiration Date HCLL Coding System ILDV253 HCLL Product Code I7486I90 HCLL Unit Number [id number] HCLL Dispense Status Presumed Transfused_PT HCLL Blood Expiration Date HCLL Coding System KYIG058 HCLL Product Code U4451B91 HCLL Unit Number [id number] HCLL Dispense Status Presumed Transfused_PT HCLL Blood Expiration Date 501052370058 HCLL Coding System IRGE191 HCLL Product Code J4256S08 HCLL Unit Number [id number] HCLL Dispense Status Presumed Transfused_PT HCLL Blood Expiration Date HCLL Coding System BYXL673 HCLL Product Code O2503O80 HCLL Unit Number [id number] HCLL Dispense Status Presumed Transfused_PT HCLL Blood Expiration Date HCLL Coding System KEXH882 HCLL Product Code G1586P19 HCLL Unit Number [id number] HCLL Dispense Status Presumed Transfused_PT HCLL Blood Expiration Date HCLL Coding System FNID741 HCLL Product Code O3961G13 HCLL Unit Number [id number] HCLL Dispense Status Presumed Transfused_PT HCLL Blood Expiration Date HCLL Coding System JBAU880 HCLL Product Code E8344T27 HCLL Unit Number [id number] HCLL Dispense Status Presumed Transfused_PT HCLL Blood Expiration Date HCLL Coding System EYLG374 HCLL Product Code U6430V11 HCLL Unit Number [id number] HCLL Dispense Status Presumed Transfused_PT HCLL Blood Expiration Date 977417543473 HCLL Coding System VCKH034 HCLL Blood Bank Product us Leandra Og MD BLOOD BANK PRODUCT ORD ERABLES Final Result [facility] * Transfuse Platelets (10/27/2024 6:09 AM EDT) us Ben Blake MD NURSING TREATMENT ORDERABLES - BLOOD ADMIN Final Result * (ABNORMAL) Arterial Blood Gas Panel (10/27/2024 6:09 AM EDT) O2Sat (ABGP) 100 10/27/2024 6:17 AM [facility] pH (ABGP) 7.30(L) 7.35 - 7.45 10/27/2024 6:17 AM [facility] PCO2 (ABGP) 41 35 - 45 mm Hg 10/27/2024 6:17 AM [facility] PO2 (ABGP) 192(H) 80 - 100 mm Hg 10/27/2024 6:17 AM [facility] HCO3 (ABGP) 21(L) 22 - 26 mmol/L 10/27/2024 6:17 AM [facility] CO2 Content (ABGP) 22(L) 23 - 27 mmol/L 10/27/2024 6:17 AM [facility] Base Excess (ABGP) -5.7(L) -2.0 - 3.0 mmol/L 10/27/2024 6:17 AM [facility] Sodium (ABGP) 138 136 - 146 mEq/L 10/27/2024 6:17 AM [facility] Potassium (ABGP) 3.3(L) 3.5 - 5.0 mEq/L 10/27/2024 6:17 AM [facility] Comment:In the event of in-v itro hemolysis, potassium results may be falsely elevated. Always interpret lab results in conjunction with clinical findings. If hemolysis is suspected, a serum sample may be collected for repeat assessment of potassium. Calcium, Free (ABGP) 5.28 4.50 - 5.30 mg/dL 10/27/2024 6:17 AM [facility] Glucose (ABGP) 112(H) 70 - 100 mg/dL 10/27/2024 6:17 AM [facility] Comment:There is interferenc e with whole blood glucose results on this method when Hematocrit is <25% or >60%. HCT (ABGP) 20.0(L) 40.0 - 52.0 % 10/27/2024 6:17 AM [facility] HGB (ABGP) 6.5(L) 14.0 - 18.0 g/dL 10/27/2024 6:17 AM [facility] %HBO2 (ABGP) 96.8 95.0 - 98.0 % 10/27/2024 6:17 AM [facility] Carboxyhgb (ABGP) 2.1 % 025 6:17 AM EDT [facility] Comment: CARBOXYHEMOGLOBIN (CO) REFERENCE RANGES: Non-Smokers: <2 % Smokers: <8 % TOXIC: >20 % Methemoglobin (ABGP) 1.0 0.0 - 1.5 % 10/27/2024 6:17 AM EDT [facility] Reduced Hemoglobin (ABGP) 0.2 0.0 - 5.0 % 10/27/2024 6:17 AM EDT [facility] Lactic Acid (ABGP) 0.4(L) 0.5 - 1.6 mmol/L 10/27/2024 6:17 AM EDT [facility] Blood, Arterial 10/27/2024 6 :09 AM EDT 10/27/2024 6:14 AM EDT us Ben Blake MD LAB BLOOD ORDERABLES Final Re sult [facility] [address] * Transfuse Fresh Frozen Plasma (10/27/2024 [...] Glucose Monitoring Device (10/27/2024 4:46 AM EDT) [facility] POC Glucose Monitoring Device 124(H) 70 - 100 mg/dL 10/27/2024 4:47 AM EDT [facility] Blood 10/27/2024 4:46 AM EDT 10/27/2024 4:47 AM EDT us Semaj Mcnair III, MD POINT OF CARE TEST ORDERABLES Final Result [facility] [id number] [id number], [facility] * Transfuse Platelets (10/27/2024 4:24 AM [...] 100 10/27/2024 3:21 AM EDT [facility] pH (ABGP) 7.32(L) 7.35 - 7.45 10/27/2024 3:21 AM EDT [facility] PCO2 (ABGP) 38 35 - 45 mm Hg 10/27/2024 3:21 AM EDT [facility] PO2 (ABGP) 176(H) 80 - 100 mm Hg 10/27/2024 3:21 AM EDT [facility] HCO3 (ABGP) 20(L) 22 - 26 mmol/L 10/27/2024 3:21 AM EDT [facility] CO2 Content (ABGP) 21(L) 23 - 27 mmol/L 10/27/2024 3:21 AM EDT [facility] Base Excess (ABGP) -6.0(L) -2.0 - 3.0 mmol/L 10/27/2024 3:21 AM EDT [facility] Sodium (ABGP) 138 136 - 146 mEq/L 10/27/2024 3:21 AM EDT [facility] Potassium (ABGP) 3.0(L) 3.5 - 5.0 mEq/L 10/27/2024 3:21 AM EDT [facility] Comment:In the event of in-v itro hemolysis, potassium results may be falsely elevated. Always interpret lab results in conjunction with clinical findings. If hemolysis is suspected, a serum sample may be collected for repeat assessment of potassium. Calcium, Free (ABGP) 5.28 4.50 - 5.30 mg/dL 10/27/2024 3:21 AM EDT [facility] Glucose (ABGP) 108(H) 70 - 100 mg/dL 10/27/2024 3:21 AM EDT [facility] Comment:There is interferenc e with whole blood glucose results on this method when Hematocrit is <25% or >60%. HCT (ABGP) 22.0(L) 40.0 - 52.0 % 10/27/2024 3:21 AM EDT [facility] HGB (ABGP) 7.3(L) 14.0 - 18.0 g/dL 10/27/2024 3:21 AM EDT [facility] %HBO2 (ABGP) 97.3 95.0 - 98.0 % 10/27/2024 3:21 AM EDT [facility] Carboxyhgb (ABGP) 1.9 % 025 3:21 AM EDT [facility] Comment: CARBOXYHEMOGLOBIN (CO) REFERENCE RANGES: Non-Smokers: <2 % Smokers: <8 % TOXIC: >20 % Methemoglobin (ABGP) 0.8 0.0 - 1.5 % 10/27/2024 3:21 AM EDT [facility] Reduced Hemoglobin (ABGP) 0.0 0.0 - 5.0 % 10/27/2024 3:21 AM EDT [facility] Lactic Acid (ABGP) 0.3(L) 0.5 - 1.6 mmol/L 10/27/2024 3:21 AM EDT [facility] Blood, Arterial 10/27/2024 3 :07 AM EDT 10/27/2024 3:14 AM EDT us Ben Blake MD LAB BLOOD ORDERABLES Final Re sult [facility] [address] [place] [address], [facility] * Surgical Pathology Exam (10/27/2024 2:38 AM EDT) Tissue LEFT KIDNEY STRUCTURE / Unknown 10/27/2024 2:38 AM EDT Narrative [facility] - 10/27/2024 12:00 AM EDT CASE: [id number] PATIENT: BLAIR GILBERT Clinical History: Transplant kidney with bile duct reconstruction Pre-Operative Diagnosis: Acute kidney injury superimposed on CKD Post-Operative Diagnosis: None Given Specimen(s) Submitted: A. baseline renal biopsy ; B. right lobe liver biopsy; C. left lobe liver biopsy CPT Code(s): 41891 X 1; 78971 X 2; 90220 X 4 Additional Information: FINAL DIAGNOSIS: A. [...] parenchyma, which is entirely submitted in cassette [id number]. (NAA Mckeon/rr) B. Received in formalin, labeled with the patient's name Blair Gilbert and right lobe liver biopsy are two green-brown tissue cores measuring 1.8 and 2.0 cm in length, each with a diameter of 0.1 cm, which are entirely submitted between blue biopsy sponges in cassette [id number] B1-B2. (NAA Mckeon/ns) C. Received in formalin, labeled with the patient's name Blair Gilbert and left lobe liver biopsy are two green-georges tissue cores measuring 1.2 and 1.4 cm in length, each with a diameter of 0.1 cm, which are entirely submitted between blue biopsy sponges in cassette [id number] C1-C2. (NAA Mckeon/nereida) Microscopic Description: I, the attending pathologist, have personally reviewed all prosector/resident work and pathology slides to determine final diagnosis. Control Materials Reacted Appropriately. Final Diagnosis performed by CLARE FALL MD Pathologist Electronically signed 10/31/2024 01:07:09 PM The Pathologist signing this report is located at [facility], [address] [place] [address], [address], , CLIA ID: [id number] ADDENDUM: A. Kidney, allograft, baseline, wedge biopsy: [...] Pathologist signing this report is located at [facility], [address] [place] [address], [address], , CLIA ID: [id number] us Kemar Sahni MD PATHOLOGY/CYTOLOGY ORDERABL ES Edited Result - Final [facility] * Anaerobic culture (10/27/2024 2:15 AM EDT) Culture Result No Anaerobes Isolated in 5 Days [facility] Fluid SPECIMEN FROM KIDNEY / Unknown 10/27/2024 2:15 AM EDT 10/27/2024 4:24 AM EDT Narrative [facility] - 10/31/2024 11:43 AM EDT 1) perfusate Semaj Mcnair III, MD MICROBIOLOGY - GENE RAL ORDERABLES Final Result Performing Organization Address City/[facility]/ZIP Co de Phone Number [facility] [address] * Fungus culture (10/27/2024 2:15 AM EDT) Culture Result No Fungus Isolated At 4 Weeks [facility] Fluid SPECIMEN FROM KIDNEY / Unknown 10/27/2024 2:15 AM EDT 10/27/2024 4:24 AM EDT Narrative [facility] - 11/24/2024 7:52 AM EDT 1) perfusate Semaj Mcnair III, MD MICROBIOLOGY - GENE RAL ORDERABLES Final Result Performing Organization Address [facility] Co de Phone Number [facility] [address] * Routine Culture plus Stain (10/27/2024 2:15 AM EDT) Gram Stain Result No Polymorphonuclear Leukocytes Seen [facility] Gram Stain Result No Organisms Seen; [facility] Culture Result No Growth After 3 Days [facility] Fluid SPECIMEN FROM KIDNEY / Unknown 10/27/2024 2:15 AM EDT 10/27/2024 4:24 AM EDT Narrative [facility] - 10/30/2024 9:26 AM EDT 1) perfusate Semaj Mcnair III, MD MICROBIOLOGY - GENE RAL ORDERABLES Final Result Performing Organization Address City/[facility]/ZIP Co de Phone Number [facility] [address] * Transfuse Platelets Transfusion Rate: Per dept routine (10/27/2024 1:52 AM EDT) John Pina MD NURSING TREATMENT ORDERABLES - BLOOD ADMIN Final Result EXTERNAL * Transfuse Platelets Transfusion Rate: Per dept routine, 1 Units (10/27/2024 1:52 AM EDT) John Pina MD NURSING TREATMENT ORDERABLES - BLOOD ADMIN Final Result EXTERNAL * (ABNORMAL) TEG-Standard Global Hemostasis (Rapid TEG with Heparin Effect, Contains a Baseline TEG) (10/27/2024 1:51 AM EDT) Citrated Kaolin Reaction Time (TEGHEPARINASE) 10.6(H) 4.6 - 9.1 minutes 10/27/2024 2:44 AM EDT [facility] Citrated Rapid Teg Maximum Amplitude (TEGHEPARINASE) 42.3(L) 52.0 - 70.0 mm 10/27/2024 2:44 AM EDT [facility] Citrated Functional Fibrinogen Maximum Amplitude (TEGHEPARINASE) 15.0 15.0 - 32.0 mm 10/27/2024 2:44 AM EDT [facility] Citrated Kaolin W/Heparinase Reaction Time (TEGHEPARINASE) 10.5(H) 4.3 - 8.3 minutes 10/27/2024 2:44 AM EDT [facility] Citrated Kaolin K-Time (TEGHEPARINASE) 2.9(A) 0.8 - 2.1 minutes 10/27/2024 2:44 AM EDT [facility] Citrated Kaolin Angle (TEGHEPARINASE) 60.4(A) 63.0 - 78.0 degrees 10/27/2024 2:44 AM EDT [facility] Citrated Kaolin Maximum Amplitude (TEGHEPARINASE) 42.9(L) 52.0 - 69.0 mm 10/27/2024 2:44 AM EDT [facility] Citrated Functional Fibrinogen- Fibrinogen Level (TEGHEPARINASE) 273.7(L) 278.0 - 581.0 mg/dL 10/27/2024 2:44 AM EDT [facility] Whole Blood (Citrate) 10/27/2024 1:51 AM EDT 10/27/2024 2:03 AM EDT John Pina MD LAB BLOOD ORDERABLES Final Resu lt [facility] [address] * (ABNORMAL) POC Glucose Monitoring Device (10/27/2024 1:50 AM EDT) POC Glucose Monitoring Device 121(H) 70 - 100 mg/dL 10/27/2024 1:51 AM EDT [facility] Blood 10/27/2024 1:50 AM EDT 10/27/2024 1:51 AM EDT us Semaj Mcnair III, MD POINT OF CARE TEST ORDERABLES Final Result Performing Organization Address City/[facility]/ZIP Co de Phone Number [facility] [address] * Transfuse Cryoprecipitate Transfusion Rate: Per dept routine (10/27/2024 1:25 AM EDT) us John Pina MD NURSING TREATMENT ORDERABLES - BLOOD ADMIN Final Result Performing Organization Address City/[facility]/ZIP Co de Phone Number EXTERNAL * Transfuse Cryoprecipitate Transfusion Rate: Per dept routine, 1 Units (10/27/2024 1:25 AM EDT) us John Pina MD NURSING TREATMENT ORDERABLES - BLOOD ADMIN Final Result Performing Organization Address City/[facility]/ZIP Co de Phone Number EXTERNAL * (ABNORMAL) POC Glucose Monitoring Device (10/27/2024 1:21 AM EDT) POC Glucose Monitoring Device 123(H) 70 - 100 mg/dL 10/27/2024 1:22 AM EDT [facility] Blood 10/27/2024 1:21 AM EDT 10/27/2024 1:21 AM EDT us Semaj Mcnair III, MD POINT OF CARE TEST ORDERABLES Final Result Performing Organization Address City/[facility]/ZIP Co de Phone Number [facility] [address] * Transfuse Fresh Frozen Plasma Transfusion Rate: Per dept routine (10/27/2024 1:03 AM EDT) us John Pina MD NURSING TREATMENT ORDERABLES - BLOOD ADMIN Final Result Performing Organization Address [facility] de Phone Number EXTERNAL * Transfuse Fresh Frozen Plasma Transfusion Rate: Per dept routine, 1 Units (10/27/2024 1:03 AM EDT) us John Pina MD NURSING TREATMENT ORDERABLES - BLOOD ADMIN Final Result Performing Organization Address [facility] de Phone Number EXTERNAL * Calcium Free, Serum (10/27/2024 12:13 AM EDT) Free Calcium, Ser 5.20 4.40 - 5.40 mg/dL 10/27/2024 12:37 AM EDT [facility] Comment:Free calcium levels vary inversely with pH by approximately 5% for each 0.1 unit of pH change. Assay results have been normalized to pH = 7.40. Serum 10/27/2024 12:1 3 AM EDT 10/27/2024 12:29 AM EDT Narrative [facility] - 10/27/2024 12:37 AM EDT This test has been developed and its performance characteristics determined by [facility] which is certified under [...] ORDERABLES Final Resu lt Performing Organization Address [facility] de Phone Number [facility] [address] [place] [address], [facility] * (ABNORMAL) Blood Gas, Arterial, STAT (10/27/2024 12:13 AM EDT) O2 Sat, Arterial 100 10/27/2024 12:23 AM EDT [facility] FIO2 30 10/27/2024 12:23 AM EDT [facility] pH, Arterial 7.32(L) 7.35 - 7.45 10/27/2024 12:23 AM EDT [facility] pCO2, Arterial 37 35 - 45 mm Hg 10/27/2024 12:23 AM EDT [facility] pO2, Arterial 137(H) 80 - 100 mm Hg 10/27/2024 12:23 AM EDT [facility] HCO3, Arterial 20(L) 22 - 26 mmol/L 10/27/2024 12:23 AM EDT [facility] CO2 Content,Arteri al 20(L) 23 - 27 mmol/L 10/27/2024 12:23 AM EDT [facility] Base Excess, Arterial -6.4(L) -2.0 - 3.0 mmol/L 10/27/2024 12:23 AM EDT [facility] %HBO2, Arterial 96.2 95.0 - 98.0 % 10/27/2024 12:23 AM EDT [facility] Carboxyhemoglo bin, Arterial 1.9 % 10/27/2024 12:23 AM EDT [facility] Comment: CARBOXYHEMOGLOBIN (CO) REFERENCE RANGES: Non-Smokers: <2 % Smokers: <8 % TOXIC: >20 % Methemoglobin, Arterial 1.5 0.0 - 1.5 % 10/27/2024 12:23 AM EDT [facility] Reduced hemoglobin, Arterial 0.4 0.0 - 5.0 % 10/27/2024 12:23 AM EDT [facility] Blood, Arterial 10/27/2024 1 2:13 AM EDT 10/27/2024 12:18 AM EDT us John Pina MD LAB BLOOD ORDERABLES Final Resu lt [facility] [address] [id number], [facility] * (ABNORMAL) TEG-Bypass/ECMO/Liver HN (Factor function, Platelet/Fibrin Clot Strength w/Clot Breakdown, Heparinase In All Channels) (10/27/2024 12:13 AM EDT) [facility] Signature Citrated Kaolin Reaction Time (TEGECMOLIVER) 9.1 4.6 - 9.1 minutes 10/27/2024 1:43 AM EDT [facility] Citrated Kaolin W/Heparinase Reaction Time (TEGECMOLIVER) 9.7(H) 4.3 - 8.3 minutes 10/27/2024 1:43 AM EDT [facility] Citrated Kaolin Maximum Amplitude (TEGECMOLIVER) <40.0(L) 52.0 - 69.0 mm 10/27/2024 1:43 AM EDT [facility] Citrated Functional Fibrinogen W/Heparinase Maximum Amplitude(TEGEC MOLIVER) 11.9(L) 15.0 - 34.0 mm 10/27/2024 1:43 AM EDT [facility] Citrated Rapid Teg W/Heparinase Maximum Amplitude (TEGECMOLIVER) 31.6(L) 53.0 - 69.0 mm 10/27/2024 1:43 AM EDT [facility] Citrated Kaolin w/Heparinase Percent Lysis (TEGECMOLIVER) 0.0 0.0 - 3.2 % 10/27/2024 1:43 AM EDT [facility] Whole Blood (Citrate) 10/27/2024 12:13 AM EDT 10/27/2024 12:18 AM EDT Kemar Sahni MD LAB BLOOD ORDERABLES Final Result Performing Organization Address [facility]/ZIP Co de Phone Number [facility] [address] [facility]. [address] * (ABNORMAL) Lactic Acid (10/27/2024 12:13 AM EDT) Lactate 0.2(L) 0.5 - 2.2 mmol/L 10/27/2024 12:59 AM EDT [facility] Plasma 10/27/2024 12:1 3 AM EDT 10/27/2024 12:31 AM EDT Kemar Sahni MD LAB BLOOD ORDERABLES Final Result [facility] [address] * Magnesium (10/27/2024 12:13 AM EDT) Magnesium 1.8 1.5 - 2.5 mg/dL 10/27/2024 12:52 AM EDT [facility] Plasma 10/27/2024 12:1 3 AM EDT 10/27/2024 12:29 AM EDT Kemar Sahni MD LAB BLOOD ORDERABLES Final Result [facility] [address] * (ABNORMAL) Hepatic Function Panel (10/27/2024 12:13 AM EDT) Total Bilirubin 1.6(H) 0.0 - 1.5 mg/dL 10/27/2024 12:52 AM EDT [facility] Bilirubin, Direct 1.17(H) 0.00 - 0.40 mg/dL 10/27/2024 12:52 AM EDT [facility] AST 157(H) 13 - 39 U/L 10/27/2024 12:52 AM EDT [facility] ALT 261(H) 7 - 52 U/L 10/27/2024 12:52 AM EDT [facility] Alkaline Phosphatase 26(L) 36 - 125 U/L 10/27/2024 12:52 AM EDT [facility] Total Protein 3.8(L) 6.4 - 8.9 g/dL 10/27/2024 12:52 AM EDT [facility] Albumin 2.8(L) 3.5 - 5.7 g/dL 10/27/2024 12:52 AM EDT [facility] Bilirubin, Indirect 0.43 0.00 - 1.10 mg/dL 10/27/2024 12:52 AM EDT [facility] Plasma 10/27/2024 12:1 3 AM EDT 10/27/2024 12:29 AM EDT Kemar Sahni MD LAB BLOOD ORDERABLES Final Result Performing Organization Address [facility] Co de Phone Number [facility] [address] * (ABNORMAL) Protime-INR (10/27/2024 12:13 AM EDT) Protime 18.6(H) 12.1 - 15.1 seconds 10/27/2024 12:43 AM EDT [facility] INR 1.5(H) 0.9 - 1.1 10/27/2024 12:43 AM EDT [facility] Comment: RECOMMENDED THERAPEUTIC RANGES USING INR : Stable oral anticoagulant therapy: 2.0 - 3.0 Mechanical prosthetic heart valve: 2.5 - 3.5 Recurrent acute myocardial infarction: 2.5 - 3.5 Plasma 10/27/2024 12:1 3 AM EDT 10/27/2024 12:29 AM EDT Kemar Sahni MD LAB BLOOD ORDERABLES Final Result Performing Organization Address [facility] Co de Phone Number [facility] [address] [facility]. [address] * (ABNORMAL) CBC (10/27/2024 12:13 AM EDT) WBC 5.0 3.8 - 10.8 10E3/uL 10/27/2024 12:59 AM EDT [facility] RBC 2.70(L) 4.20 - 5.80 10E6/uL 10/27/2024 12:59 AM EDT [facility] Hemoglobin 8.5(L) 13.2 - 17.1 g/dL 10/27/2024 12:59 AM EDT [facility] Hematocrit 23.9(L) 38.5 - 50.0 % 10/27/2024 12:59 AM EDT [facility] MCV 88.5 80.0 - 100.0 fL 10/27/2024 12:59 AM EDT [facility] MCH 31.5 27.0 - 33.0 pg 10/27/2024 12:59 AM EDT [facility] MCHC 35.6 32.0 - 36.0 g/dL 10/27/2024 12:59 AM EDT [facility] RDW 20.6(H) 11.0 - 15.0 % 10/27/2024 12:59 AM EDT [facility] Platelets 35(L) 140 - 400 10E3/uL 10/27/2024 12:59 AM EDT [facility] Comment: CNV Specimen checked for clots. None detected. MPV 7.6 7.5 - 11.5 fL 10/27/2024 12:59 AM EDT [facility] Whole Blood 10/27/2024 12:1 3 AM EDT 10/27/2024 12:29 AM EDT us Kemar Sahni MD LAB BLOOD ORDERABLES Final Result [facility] [address] [place] [address], [facility] * (ABNORMAL) Renal Function Panel w/EGFR (10/27/2024 12:13 AM EDT) Sodium 141 133 - 146 mmol/L 10/27/2024 12:52 AM EDT [facility] Potassium 3.2(L) 3.5 - 5.3 mmol/L 10/27/2024 12:52 AM EDT [facility] Chloride 109 98 - 110 mmol/L 10/27/2024 12:52 AM EDT [facility] CO2 21 21 - 33 mmol/L 10/27/2024 12:52 AM EDT [facility] Anion Gap 11 3 - 16 mmol/L 10/27/2024 12:52 AM EDT [facility] BUN 64(H) 7 - 25 mg/dL 10/27/2024 12:52 AM EDT [facility] Creatinine 2.58(H) 0.60 - 1.30 mg/dL 10/27/2024 12:52 AM EDT [facility] Glucose 126(H) 70 - 100 mg/dL 10/27/2024 12:52 AM EDT [facility] Calcium 8.9 8.6 - 10.3 mg/dL 10/27/2024 12:52 AM EDT [facility] Phosphorus 5.3(H) 2.1 - 4.7 mg/dL 10/27/2024 12:52 AM EDT [facility] Albumin 2.8(L) 3.5 - 5.7 g/dL 10/27/2024 12:52 AM EDT [facility] Osmolality, Calculated 312(H) 278 - 305 mOsm/kg 10/27/2024 12:52 AM EDT [facility] EGFR 31 10/27/2024 12:52 AM EDT [facility] Comment:As of 2021, the estimated GFR [...] C, Talia M, Olivia DC, Emerita GUERRERO, Mdaelyn CRUZ, Felicia LA, et al. A Unifying Approach for GFR Estimation: Recommendations of the NKF-ASN Task Force on Reassessing the inclusion of Race in Diagnosing Kidney Disease. Am J Kidney Dis. 2020. Plasma 10/27/2024 12:1 3 AM EDT 10/27/2024 12:29 AM EDT Kemar Sahni MD LAB BLOOD ORDERABLES Final Result [facility] [address] * (ABNORMAL) POC Glucose Monitoring Device (10/27/2024 12:08 AM EDT) POC Glucose Monitoring Device 121(H) 70 - 100 mg/dL 10/27/2024 12:08 AM EDT [facility] Blood 10/27/2024 12:0 8 AM EDT 10/27/2024 12:08 AM EDT Semaj Mcnair III, MD POINT OF CARE TEST ORDERABLES Final Result [facility] [address] [facility] [address], [facility] * (ABNORMAL) POC Glucose Monitoring Device (10/26/2024 11:15 PM EDT) [facility] POC Glucose Monitoring Device 120(H) 70 - 100 mg/dL 10/26/2024 11:15 PM EDT [facility] Blood 10/26/2024 11:1 5 PM EDT 10/26/2024 11:15 PM EDT Semaj Mcnair III, MD POINT OF CARE TEST ORDERABLES Final Result [facility] [address] [facility]. [address] * (ABNORMAL) TEG-Bypass/ECMO/Liver HN (Factor function, Platelet/Fibrin Clot Strength w/Clot Breakdown, Heparinase In All Channels) (10/26/2024 10:36 PM EDT) Citrated Kaolin Reaction Time (TEGECMOLIVER) 10.0(H) 4.6 - 9.1 minutes 10/26/2024 11:53 PM EDT [facility] Citrated Kaolin W/Heparinase Reaction Time (TEGECMOLIVER) 10.2(H) 4.3 - 8.3 minutes 10/26/2024 11:53 PM EDT [facility] Citrated Kaolin Maximum Amplitude (TEGECMOLIVER) <40.0(L) 52.0 - 69.0 mm 10/26/2024 11:53 PM EDT [facility] Citrated Functional Fibrinogen W/Heparinase Maximum Amplitude(TEGEC MOLIVER) 11.3(L) 15.0 - 34.0 mm 10/26/2024 11:53 PM EDT [facility] Citrated Rapid Teg W/Heparinase Maximum Amplitude (TEGECMOLIVER) 41.8(L) 53.0 - 69.0 mm 10/26/2024 11:53 PM EDT [facility] Citrated Kaolin w/Heparinase Percent Lysis (TEGECMOLIVER) 0.0 0.0 - 3.2 % 10/26/2024 11:53 PM EDT [facility] Whole Blood (Citrate) 10/26/2024 10:36 PM EDT 10/26/2024 10:43 PM EDT Kemar Sahni MD LAB BLOOD ORDERABLES Final Result Performing Organization Address City/[facility]/ZIP Co de Phone Number [facility] [address] [place] [address]. [address] * (ABNORMAL) POC Glucose Monitoring Device (10/26/2024 10:14 PM EDT) POC Glucose Monitoring Device 124(H) 70 - 100 mg/dL 10/26/2024 11:11 PM EDT [facility] Blood 10/26/2024 10:1 4 PM EDT 10/26/2024 11:11 PM EDT Semaj Mcnair III, MD POINT OF CARE TEST ORDERABLES Final Result Performing Organization Address [facility] Co de Phone Number [facility] [address] [facility]. [address] * (ABNORMAL) POC Glucose Monitoring Device (10/26/2024 9:16 PM EDT) POC Glucose Monitoring Device 119(H) 70 - 100 mg/dL 10/26/2024 9:18 PM EDT [facility] Blood 10/26/2024 9:16 PM EDT 10/26/2024 9:18 PM EDT Semaj Mcnair III, MD POINT OF CARE TEST ORDERABLES Final Result Performing Organization Address City/[facility] Co de Phone Number [facility] [address] * (ABNORMAL) POC Glucose Monitoring Device (10/26/2024 8:05 PM EDT) POC Glucose Monitoring Device 113(H) 70 - 100 mg/dL 10/26/2024 8:06 PM EDT [facility] Blood 10/26/2024 8:05 PM EDT 10/26/2024 8:06 PM EDT Semaj Mcnair III, MD POINT OF CARE TEST ORDERABLES Final Result Performing Organization Address [facility] Co de Phone Number [facility] [address] * (ABNORMAL) POC Glucose Monitoring Device (10/26/2024 7:02 PM EDT) POC Glucose Monitoring Device 111(H) 70 - 100 mg/dL 10/26/2024 7:03 PM EDT [facility] Blood 10/26/2024 7:02 PM EDT 10/26/2024 7:03 PM EDT Semaj Mcnair III, MD POINT OF CARE TEST ORDERABLES Final Result Performing Organization Address [facility] Co de Phone Number [facility] [address] * Transfuse Cryoprecipitate Transfusion Rate: Per dept routine (10/26/2024 6:39 PM EDT) John Pina MD NURSING TREATMENT ORDERABLES - BLOOD ADMIN Final Result Performing Organization Address City/[facility] Co de Phone Number EXTERNAL * Transfuse Cryoprecipitate Transfusion Rate: Per dept routine, 1 Units (10/26/2024 6:39 PM EDT) John Pina MD NURSING TREATMENT ORDERABLES - BLOOD ADMIN Final Result Performing Organization Address [place]/[facility] Co de Phone Number EXTERNAL * (ABNORMAL) POC Glucose Monitoring Device (10/26/2024 6:33 PM EDT) POC Glucose Monitoring Device 110(H) 70 - 100 mg/dL 10/26/2024 6:34 PM EDT [facility] Blood 10/26/2024 6:33 PM EDT 10/26/2024 6:34 PM EDT us Semaj Mcnair III, MD POINT OF CARE TEST ORDERABLES Final Result Performing Organization Address [facility] Co de Phone Number [facility] [id number] [facility]. [address] * Transfuse Cryoprecipitate Transfusion Rate: Per dept routine (10/26/2024 6:22 PM EDT) us John Pina MD NURSING TREATMENT ORDERABLES - BLOOD ADMIN Final Result Performing Organization Address [facility] Co de Phone Number EXTERNAL * Transfuse Cryoprecipitate Transfusion Rate: Per dept routine, 1 Units (10/26/2024 6:22 PM EDT) us John Pina MD NURSING TREATMENT ORDERABLES - BLOOD ADMIN Final Result Performing Organization Address [facility] Co de Phone Number EXTERNAL * (ABNORMAL) POC Glucose Monitoring Device (10/26/2024 6:17 PM EDT) POC Glucose Monitoring Device 104(H) 70 - 100 mg/dL 10/26/2024 6:18 PM EDT [facility] Blood 10/26/2024 6:17 PM EDT 10/26/2024 6:18 PM EDT us Semaj Mcnair III, MD POINT OF CARE TEST ORDERABLES Final Result Performing Organization Address [facility] Co de Phone Number [facility] [address] [facility]. [address] * (ABNORMAL) POC Glucose Monitoring Device (10/26/2024 4:58 PM EDT) POC Glucose Monitoring Device 115(H) 70 - 100 mg/dL 10/26/2024 4:59 PM EDT [facility] Blood 10/26/2024 4:58 PM EDT 10/26/2024 4:58 PM EDT us Semaj Mcnair III, MD POINT OF CARE TEST ORDERABLES Final Result Performing Organization Address [facility] Co de Phone Number [facility] [address] * (ABNORMAL) Calcium Free, Serum (10/26/2024 4:42 PM EDT) Free Calcium, Ser 5.67(H) 4.40 - 5.40 mg/dL 10/26/2024 4:55 PM EDT [facility] Comment:Free calcium levels vary inversely with pH by approximately 5% for each 0.1 unit of pH change. Assay results have been normalized to pH = 7.40. Serum 10/26/2024 4:42 PM EDT 10/26/2024 4:47 PM EDT [facility] - 10/26/2024 4:55 PM EDT This test has been developed and its performance characteristics determined by [facility] which is certified under [...] ORDERABLES Final Resu lt Performing Organization Address [facility] [place] [address], [facility] * Repeat Crossmatch (Recipient Sample) (10/26/2024 4:42 PM EDT) Repeat Cx - Recipient The request and specimen(s) for this test have been received and transported to the [facility] at [address] [place] [address]. The [facility] will report results directly to the client. 10/26/2024 4:49 PM EDT [facility] Whole Blood 10/26/2024 4:42 PM EDT 10/26/2024 4:49 PM EDT [facility] - 10/26/2024 4:49 PM EDT To be sent to [facility] for Donor UNOS#[id number] cross match with Blair Gilbert Sveta Judge MD LAB BLOOD ORDERABLES Final Resu lt [facility] [address] * (ABNORMAL) Lactic Acid (10/26/2024 4:42 PM EDT) Lactate 0.3(L) 0.5 - 2.2 mmol/L 10/26/2024 5:19 PM EDT [facility] Plasma 10/26/2024 4:42 PM EDT 10/26/2024 4:47 PM EDT Kemar Sahni MD LAB BLOOD ORDERABLES Final Result Performing Organization Address [facility]/ZIP Co de Phone Number [facility] [address] [facility] [address] * Magnesium (10/26/2024 4:42 PM EDT) Magnesium 2.0 1.5 - 2.5 mg/dL 10/26/2024 5:24 PM EDT [facility] Plasma 10/26/2024 4:42 PM EDT 10/26/2024 4:47 PM EDT Kemar Sahni MD LAB BLOOD ORDERABLES Final Result [facility] [address] [facility] * (ABNORMAL) Hepatic Function Panel (10/26/2024 4:42 PM EDT) Total Bilirubin 2.3(H) 0.0 - 1.5 mg/dL 10/26/2024 5:24 PM EDT [facility] Bilirubin, Direct 1.85(H) 0.00 - 0.40 mg/dL 10/26/2024 5:24 PM EDT [facility] AST 374(H) 13 - 39 U/L 10/26/2024 5:24 PM EDT [facility] ALT 458(H) 7 - 52 U/L 10/26/2024 5:24 PM EDT [facility] Alkaline Phosphatase 39 36 - 125 U/L 10/26/2024 5:24 PM EDT [facility] Total Protein 3.8(L) 6.4 - 8.9 g/dL 10/26/2024 5:24 PM EDT [facility] Albumin 3.0(L) 3.5 - 5.7 g/dL 10/26/2024 5:24 PM EDT [facility] Bilirubin, Indirect 0.45 0.00 - 1.10 mg/dL 10/26/2024 5:24 PM EDT [facility] Plasma 10/26/2024 4:42 PM EDT 10/26/2024 4:47 PM EDT Kemar Sahni MD LAB BLOOD ORDERABLES Final Result [facility] [address] * (ABNORMAL) Protime-INR (10/26/2024 4:42 PM EDT) Protime 20.3(H) 12.1 - 15.1 seconds 10/26/2024 5:12 PM EDT [facility] INR 1.7(H) 0.9 - 1.1 10/26/2024 5:12 PM EDT [facility] Comment: RECOMMENDED THERAPEUTIC RANGES USING INR : Stable oral anticoagulant therapy: 2.0 - 3.0 Mechanical prosthetic heart valve: 2.5 - 3.5 Recurrent acute myocardial infarction: 2.5 - 3.5 Plasma 10/26/2024 4:42 PM EDT 10/26/2024 4:47 PM EDT Kemar Sahni MD LAB BLOOD ORDERABLES Final Result [facility] [address] [place] [address], [facility] * (ABNORMAL) CBC (10/26/2024 4:42 PM EDT) WBC 10.0 3.8 - 10.8 10E3/uL 10/26/2024 5:00 PM EDT [facility] RBC 3.44(L) 4.20 - 5.80 10E6/uL 10/26/2024 5:00 PM EDT [facility] Hemoglobin 10.5(L) 13.2 - 17.1 g/dL 10/26/2024 5:00 PM EDT [facility] Hematocrit 30.2(L) 38.5 - 50.0 % 10/26/2024 5:00 PM EDT [facility] MCV 87.7 80.0 - 100.0 fL 10/26/2024 5:00 PM EDT [facility] MCH 30.6 27.0 - 33.0 pg 10/26/2024 5:00 PM EDT [facility] MCHC 34.8 32.0 - 36.0 g/dL 10/26/2024 5:00 PM EDT [facility] RDW 20.1(H) 11.0 - 15.0 % 10/26/2024 5:00 PM EDT [facility] Platelets 48(L) 140 - 400 10E3/uL 10/26/2024 5:00 PM EDT [facility] Comment:Specimen checked for clots. None detected. MPV 7.9 7.5 - 11.5 fL 10/26/2024 5:00 PM EDT [facility] Whole Blood 10/26/2024 4:42 PM EDT 10/26/2024 4:47 PM EDT us Kemar Sahni MD LAB BLOOD ORDERABLES Final Result [facility] [address] [place] [address], [facility] * (ABNORMAL) Renal Function Panel w/EGFR (10/26/2024 4:42 PM EDT) Pathologist [facility] Sodium 142 133 - 146 mmol/L 10/26/2024 5:24 PM EDT [facility] Potassium 3.3(L) 3.5 - 5.3 mmol/L 10/26/2024 5:24 PM EDT [facility] Chloride 109 98 - 110 mmol/L 10/26/2024 5:24 PM EDT [facility] CO2 23 21 - 33 mmol/L 10/26/2024 5:24 PM EDT [facility] Anion Gap 10 3 - 16 mmol/L 10/26/2024 5:24 PM EDT [facility] BUN 63(H) 7 - 25 mg/dL 10/26/2024 5:24 PM EDT [facility] Creatinine 2.85(H) 0.60 - 1.30 mg/dL 10/26/2024 5:24 PM EDT [facility] Glucose 127(H) 70 - 100 mg/dL 10/26/2024 5:24 PM EDT [facility] Calcium 8.9 8.6 - 10.3 mg/dL 10/26/2024 5:24 PM EDT [facility] Phosphorus 4.4 2.1 - 4.7 mg/dL 10/26/2024 5:24 PM EDT [facility] Albumin 3.0(L) 3.5 - 5.7 g/dL 10/26/2024 5:24 PM EDT [facility] Osmolality, Calculated 314(H) 278 - 305 mOsm/kg 10/26/2024 5:24 PM EDT [facility] EGFR 28 10/26/2024 5:24 PM EDT [facility] Comment:As of 2021, the estimated GFR [...] BLOOD ORDERABLES Final Result Performing Organization Address [facility] Co de Phone Number [facility] [address] [facility]. [address] * (ABNORMAL) POC Glucose Monitoring Device (10/26/2024 3:54 PM EDT) POC Glucose Monitoring Device 126(H) 70 - 100 mg/dL 10/26/2024 3:55 PM EDT [facility] Blood 10/26/2024 3:54 PM EDT 10/26/2024 3:55 PM EDT Semaj Mcnair III, MD POINT OF CARE TEST ORDERABLES Final Result Performing Organization Address [facility] Co de Phone Number [facility] [address] [facility] * (ABNORMAL) POC Glucose Monitoring Device (10/26/2024 3:06 PM EDT) POC Glucose Monitoring Device 144(H) 70 - 100 mg/dL 10/26/2024 3:14 PM EDT [facility] Blood 10/26/2024 3:06 PM EDT 10/26/2024 3:13 PM EDT Semaj Mcnair III, MD POINT OF CARE TEST ORDERABLES Final Result Performing Organization Address [facility] Co de Phone Number [facility] [address] [facility]. [address] * (ABNORMAL) TEG-Bypass/ECMO/Liver HN (Factor function, Platelet/Fibrin Clot Strength w/Clot Breakdown, Heparinase In All Channels) (10/26/2024 3:03 PM EDT) Citrated Kaolin Reaction Time (TEGECMOLIVER) 8.2 4.6 - 9.1 minutes 10/26/2024 4:43 PM EDT [facility] Citrated Kaolin W/Heparinase Reaction Time (TEGECMOLIVER) 8.2 4.3 - 8.3 minutes 10/26/2024 4:43 PM EDT [facility] Citrated Kaolin Maximum Amplitude (TEGECMOLIVER) 41.7(L) 52.0 - 69.0 mm 10/26/2024 4:43 PM EDT [facility] Citrated Functional Fibrinogen W/Heparinase Maximum Amplitude(TEGEC MOLIVER) 11.4(L) 15.0 - 34.0 mm 10/26/2024 4:43 PM EDT [facility] Citrated Rapid Teg W/Heparinase Maximum Amplitude (TEGECMOLIVER) 38.6(L) 53.0 - 69.0 mm 10/26/2024 4:[address] [facility] Citrated Kaolin w/Heparinase Percent Lysis (TEGECMOLIVER) 0.0 0.0 - 3.2 % 10/26/2024 4:[address] [facility] Whole Blood (Citrate) 10/26/2024 3:03 PM EDT 10/26/2024 3:10 PM EDT Jani Mooney MD LAB BLOOD ORDERABLES Final Resul t Performing Organization Address City/State/[facility] Co de Phone Number [facility] [address] * ECG 12 lead (MUSE) (10/26/2024 2:19 PM EDT) 10/26/2024 2:19 PM EDT Narrative MUSE - 10/27/2024 10:09 AM EDT Ventricular Rate: 105 BPM Atrial Rate: 105 BPM P-R Interval: 128 ms QRS Duration: 94 ms QT: 474 ms QTc: 626 ms R Yuma: -37 degrees T Yuma: 35 degrees Diagnosis Line: Critical Test Result: [...] mg/dL 10/26/2024 2:01 PM EDT [facility] Blood 10/26/2024 2:00 PM EDT 10/26/2024 2:01 PM EDT Semaj Mcnair III, MD POINT OF CARE TEST ORDERABLES Final Result Performing Organization Address [facility] Co de Phone Number [facility] [address] [facility]. [address] * (ABNORMAL) POC Glucose Monitoring Device (10/26/2024 1:05 PM EDT) POC Glucose Monitoring Device 212(H) 70 - 100 mg/dL 10/26/2024 1:06 PM EDT [facility] Blood 10/26/2024 1:05 PM EDT 10/26/2024 1:06 PM EDT Semaj Mcnair III, MD POINT OF CARE TEST ORDERABLES Final Result Performing Organization Address [facility] Co de Phone Number [facility] [address] [facility]. [address] * Transfuse Cryoprecipitate Has consent been obtained? Yes; Transfusion Rate: Per dept routine (10/26/2024 12:25 PM EDT) us Shay Sifuentes MD NURSING TREATMENT ORDERABLES - BLOOD ADMIN Final Result EXTERNAL * Transfuse Cryoprecipitate Has consent been obtained? Yes; Transfusion Rate: Per dept routine, 1 Units (10/26/2024 12:25 PM EDT) Shay Sifuentes MD NURSING TREATMENT ORDERABLES - BLOOD ADMIN Final Result Performing Organization Address [facility] de Phone Number EXTERNAL * (ABNORMAL) POC Glucose Monitoring Device (10/26/2024 12:06 PM EDT) POC Glucose Monitoring Device 226(H) 70 - 100 mg/dL 10/26/2024 12:07 PM EDT [facility] Blood 10/26/2024 12:0 6 PM EDT 10/26/2024 12:07 PM EDT Semaj Mcnair III, MD POINT OF CARE TEST ORDERABLES Final Result Performing Organization Address [facility] de Phone Number [facility] [address] [facility]. [address] * Transfuse Cryoprecipitate Transfusion Rate: Per dept routine (10/26/2024 12:01 PM EDT) John Pina MD NURSING TREATMENT ORDERABLES - BLOOD ADMIN Final Result Performing Organization Address [facility] de Phone Number EXTERNAL * Transfuse Cryoprecipitate Transfusion Rate: Per dept routine, 1 Units (10/26/2024 12:01 PM EDT) John Pina MD NURSING TREATMENT ORDERABLES - BLOOD ADMIN Final Result Performing Organization Address [facility] de Phone Number EXTERNAL * Lactic Acid (10/26/2024 10:48 AM EDT) Lactate 1.2 0.5 - 2.2 mmol/L 10/26/2024 11:27 AM EDT [facility] Plasma 10/26/2024 10:4 8 AM EDT 10/26/2024 10:53 AM EDT Kemar Sahni MD LAB BLOOD ORDERABLES Final Result Performing Organization Address [facility] Co de Phone Number [facility] [address] * Magnesium (10/26/2024 10:48 AM EDT) Magnesium 2.0 1.5 - 2.5 mg/dL 10/26/2024 11:26 AM EDT [facility] Plasma 10/26/2024 10:4 8 AM EDT 10/26/2024 10:53 AM EDT us Kemar Sahni MD LAB BLOOD ORDERABLES Final Result [facility] [address] * (ABNORMAL) Hepatic Function Panel (10/26/2024 10:48 AM EDT) Total Bilirubin 5.9(H) 0.0 - 1.5 mg/dL 10/26/2024 11:26 AM EDT [facility] Bilirubin, Direct 4.74(H) 0.00 - 0.40 mg/dL 10/26/2024 11:26 AM EDT [facility] AST 872(H) 13 - 39 U/L 10/26/2024 11:26 AM EDT [facility] ALT 736(H) 7 - 52 U/L 10/26/2024 11:26 AM EDT [facility] Alkaline Phosphatase 56 36 - 125 U/L 10/26/2024 11:26 AM EDT [facility] Total Protein 3.5(L) 6.4 - 8.9 g/dL 10/26/2024 11:26 AM EDT [facility] Albumin 2.5(L) 3.5 - 5.7 g/dL 10/26/2024 11:26 AM EDT [facility] Bilirubin, Indirect 1.16(H) 0.00 - 1.10 mg/dL 10/26/2024 11:26 AM EDT [facility] Plasma 10/26/2024 10:4 8 AM EDT 10/26/2024 10:53 AM EDT us Kemar Sahni MD LAB BLOOD ORDERABLES Final Result [facility] [address] * (ABNORMAL) Protime-INR (10/26/2024 10:48 AM EDT) Protime 23.0(H) 12.1 - 15.1 seconds 10/26/2024 11:26 AM EDT [facility] INR 2.0(H) 0.9 - 1.1 10/26/2024 11:26 AM EDT [facility] Comment: RECOMMENDED THERAPEUTIC RANGES USING INR : Stable oral anticoagulant therapy: 2.0 - 3.0 Mechanical prosthetic heart valve: 2.5 - 3.5 Recurrent acute myocardial infarction: 2.5 - 3.5 Plasma 10/26/2024 10:4 8 AM EDT 10/26/2024 10:53 AM EDT Kemar Sahni MD LAB BLOOD ORDERABLES Final Result [facility] [address] * (ABNORMAL) CBC (10/26/2024 10:48 AM EDT) WBC 17.3(H) 3.8 - 10.8 10E3/uL 10/26/2024 11:14 AM EDT [facility] RBC 4.22 4.20 - 5.80 10E6/uL 10/26/2024 11:14 AM EDT [facility] Hemoglobin 12.8(L) 13.2 - 17.1 g/dL 10/26/2024 11:14 AM EDT [facility] Hematocrit 37.2(L) 38.5 - 50.0 % 10/26/2024 11:14 AM EDT [facility] MCV 88.3 80.0 - 100.0 fL 10/26/2024 11:14 AM EDT [facility] MCH 30.4 27.0 - 33.0 pg 10/26/2024 11:14 AM EDT [facility] MCHC 34.4 32.0 - 36.0 g/dL 10/26/2024 11:14 AM EDT [facility] RDW 20.8(H) 11.0 - 15.0 % 10/26/2024 11:14 AM EDT [facility] Platelets 109(L) 140 - 400 10E3/uL 10/26/2024 11:14 AM EDT [facility] MPV 7.5 7.5 - 11.5 fL 10/26/2024 11:14 AM EDT [facility] Whole Blood 10/26/2024 10:4 8 AM EDT 10/26/2024 10:53 AM EDT us Kemar Sahni MD LAB BLOOD ORDERABLES Final Result [facility] [address] [place] [address], [facility] * (ABNORMAL) Blood gas, arterial (10/26/2024 10:48 AM EDT) O2 Sat, Arterial 97 10/26/2024 10:54 AM EDT [facility] FIO2 35% 10/26/2024 10:54 AM EDT [facility] pH, Arterial 7.37 7.35 - 7.45 10/26/2024 10:54 AM EDT [facility] pCO2, Arterial 36 35 - 45 mm Hg 10/26/2024 10:54 AM EDT [facility] pO2, Arterial 91 80 - 100 mm Hg 10/26/2024 10:54 AM EDT [facility] HCO3, Arterial 22 22 - 26 mmol/L 10/26/2024 10:54 AM EDT [facility] CO2 Content,Arteri al 22(L) 23 - 27 mmol/L 10/26/2024 10:54 AM EDT [facility] Base Excess, Arterial -3.9(L) -2.0 - 3.0 mmol/L 10/26/2024 10:54 AM EDT [facility] %HBO2, Arterial 94.8(L) 95.0 - 98.0 % 10/26/2024 10:54 AM EDT [facility] Carboxyhemoglo bin, Arterial 1.9 % 10/26/2024 10:54 AM EDT [facility] Comment: CARBOXYHEMOGLOBIN (CO) REFERENCE RANGES: Non-Smokers: <2 % Smokers: <8 % TOXIC: >20 % Methemoglobin, Arterial 0.7 0.0 - 1.5 % 10/26/2024 10:54 AM EDT [facility] Reduced hemoglobin, Arterial 2.5 0.0 - 5.0 % 10/26/2024 10:54 AM EDT [facility] Blood, Arterial 10/26/2024 1 0:48 AM EDT 10/26/2024 10:52 AM EDT us Shay Sifuentes MD LAB BLOOD ORDERABLES Final Resu lt [facility] [address] [place] [address], [facility] * (ABNORMAL) Renal Function Panel w/EGFR (10/26/2024 10:48 AM EDT) Sodium 139 133 - 146 mmol/L 10/26/2024 11:26 AM EDT [facility] Potassium 2.9(LL) 3.5 - 5.3 mmol/L 10/26/2024 11:26 AM EDT [facility] Comment:K CRITICAL VALUE WAS PREVIOUSLY CALLED Chloride 107 98 - 110 mmol/L 10/26/2024 11:26 AM EDT [facility] CO2 22 21 - 33 mmol/L 10/26/2024 11:26 AM EDT [facility] Anion Gap 10 3 - 16 mmol/L 10/26/2024 11:26 AM EDT [facility] BUN 61(H) 7 - 25 mg/dL 10/26/2024 11:26 AM EDT [facility] Creatinine 2.78(H) 0.60 - 1.30 mg/dL 10/26/2024 11:26 AM EDT [facility] Glucose 253(H) 70 - 100 mg/dL 10/26/2024 11:26 AM EDT [facility] Calcium 8.8 8.6 - 10.3 mg/dL 10/26/2024 11:26 AM EDT [facility] Phosphorus 4.1 2.1 - 4.7 mg/dL 10/26/2024 11:26 AM EDT [facility] Albumin 2.5(L) 3.5 - 5.7 g/dL 10/26/2024 11:26 AM EDT [facility] Osmolality, Calculated 314(H) 278 - 305 mOsm/kg 10/26/2024 11:26 AM EDT [facility] EGFR 28 10/26/2024 11:26 AM EDT [facility] Comment:As of 2021, the estimated GFR [...] LAB BLOOD ORDERABLES Final Result [facility] [address] * (ABNORMAL) POC Glucose Monitoring Device (10/26/2024 10:47 AM EDT) POC Glucose Monitoring Device 234(H) 70 - 100 mg/dL 10/26/2024 10:48 AM EDT [facility] Blood 10/26/2024 10:4 7 AM EDT 10/26/2024 10:48 AM EDT us Semaj Mcnair III, MD POINT OF CARE TEST ORDERABLES Final Result [facility] [address] [facility]. [address] * CARISA Rhythm Strip - Scan (10/26/2024 10:45 AM EDT) us Scanning Uchhim SCAN DOCS - NO RESULTS Final Res ult * (ABNORMAL) POC Glucose Monitoring Device (10/26/2024 10:08 AM EDT) POC Glucose Monitoring Device 235(H) 70 - 100 mg/dL 10/26/2024 10:09 AM EDT [facility] Blood 10/26/2024 10:0 8 AM EDT 10/26/2024 10:09 AM EDT Semaj Mcnair III, MD POINT OF CARE TEST ORDERABLES Final Result Performing Organization Address City/[facility]/ZIP Co de Phone Number [facility] [address] [facility]. [address] * (ABNORMAL) POC Glucose Monitoring Device (10/26/2024 8:57 AM EDT) POC Glucose Monitoring Device 232(H) 70 - 100 mg/dL 10/26/2024 8:59 AM EDT [facility] Blood 10/26/2024 8:57 AM EDT 10/26/2024 8:58 AM EDT Semaj Mcnair III, MD POINT OF CARE TEST ORDERABLES Final Result [facility] [address] [place] [address]. [address] * ECG 12 lead (MUSE) (10/26/2024 8:16 AM EDT) 10/26/2024 8:16 AM EDT Narrative MUSE - 10/27/2024 10:09 AM EDT Ventricular Rate: 112 BPM QRS Duration: 96 ms QT: 452 ms QTc: 616 ms R Yuma: -41 degrees T Yuma: 40 degrees Diagnosis Line: Critical Test Result: Long QTc ^ SINUS TACHYCARDIA OCCASIONAL PREMATURE VENTRICULAR COMPLEXES ^ LEFT AXIS DEVIATION, LEFT ANTERIOR HEMIBLOCK ^ PROLONGED QT ^ ABNORMAL ECG ^ ^ Confirmed by MD HA[facility] ([id number] on 10/27/2024 10:09:18 AM us Shay [...] mg/dL 10/26/2024 8:01 AM EDT [facility] Blood 10/26/2024 7:59 AM EDT 10/26/2024 8:00 AM EDT Semaj Mcnair III, MD POINT OF CARE TEST ORDERABLES Final Result [facility] [address] [place] [address], [facility] * (ABNORMAL) TEG-Bypass/ECMO/Liver HN (Factor function, Platelet/Fibrin Clot Strength w/Clot Breakdown, Heparinase In All Channels) (10/26/2024 7:59 AM EDT) Citrated Kaolin Reaction Time (TEGECMOLIVER) 8.2 4.6 - 9.1 minutes 10/26/2024 10:36 AM EDT [facility] Citrated Kaolin W/Heparinase Reaction Time (TEGECMOLIVER) 8.1 4.3 - 8.3 minutes 10/26/2024 10:36 AM EDT [facility] Citrated Kaolin Maximum Amplitude (TEGECMOLIVER) 46.8(L) 52.0 - 69.0 mm 10/26/2024 10:36 AM EDT [facility] Citrated Functional Fibrinogen W/Heparinase Maximum Amplitude(TEGEC MOLIVER) 10.5(L) 15.0 - 34.0 mm 10/26/2024 10:36 AM EDT [facility] Citrated Rapid Teg W/Heparinase Maximum Amplitude (TEGECMOLIVER) 45.5(L) 53.0 - 69.0 mm 10/26/2024 10:36 AM EDT [facility] Citrated Kaolin w/Heparinase Percent Lysis (TEGECMOLIVER) 0.0 0.0 - 3.2 % 10/26/2024 10:36 AM EDT [facility] Whole Blood (Citrate) 10/26/2024 7:59 AM EDT 10/26/2024 8:05 AM EDT Shay Sifuentes MD LAB BLOOD ORDERABLES Final Resu lt Performing Organization Address City/[facility]/ZIP Co de Phone Number [facility] [address] [place] [address]. [address] * (ABNORMAL) POC Glucose Monitoring Device (10/26/2024 6:12 AM EDT) POC Glucose Monitoring Device 196(H) 70 - 100 mg/dL 10/26/2024 6:13 AM EDT [facility] Blood 10/26/2024 6:12 AM EDT 10/26/2024 6:13 AM EDT Semaj Mcnair III, MD POINT OF CARE TEST ORDERABLES Final Result Performing Organization Address [facility]/ZIP Co de Phone Number [facility] [address] [facility]. [address] * Lactic Acid (10/26/2024 6:10 AM EDT) Lactate 1.2 0.5 - 2.2 mmol/L 10/26/2024 6:39 AM EDT [facility] Plasma 10/26/2024 6:10 AM EDT 10/26/2024 6:19 AM EDT us Sveta Judge MD LAB BLOOD ORDERABLES Final Resu lt Performing Organization Address [place]/[facility]/ZIP Co de Phone Number [facility] [address] [facility]. [address] * (ABNORMAL) Fibrinogen (10/26/2024 6:10 AM EDT) Fibrinogen 160(L) 218 - 406 mg/dL 10/26/2024 6:41 AM EDT [facility] Plasma 10/26/2024 6:10 AM EDT 10/26/2024 6:26 AM EDT Sveta Judge MD LAB BLOOD ORDERABLES Final Resu lt Performing Organization Address [facility] de Phone Number [facility] [address] [facility]. [address] * (ABNORMAL) Protime-INR (10/26/2024 6:10 AM EDT) Protime 25.0(H) 12.1 - 15.1 seconds 10/26/2024 6:41 AM EDT [facility] INR 2.2(H) 0.9 - 1.1 10/26/2024 6:41 AM EDT [facility] Comment: RECOMMENDED THERAPEUTIC RANGES USING INR : Stable oral anticoagulant therapy: 2.0 - 3.0 Mechanical prosthetic heart valve: 2.5 - 3.5 Recurrent acute myocardial infarction: 2.5 - 3.5 Plasma 10/26/2024 6:10 AM EDT 10/26/2024 6:26 AM EDT Sveta Judge MD LAB BLOOD ORDERABLES Final Resu lt Performing Organization Address [facility] Co de Phone Number [facility] [address] [facility]. [address] * (ABNORMAL) Blood gas, arterial (10/26/2024 6:10 AM EDT) O2 Sat, Arterial 98 10/26/2024 6:23 AM EDT [facility] FIO2 60 10/26/2024 6:23 AM EDT [facility] pH, Arterial 7.27(L) 7.35 - 7.45 10/26/2024 6:23 AM EDT [facility] pCO2, Arterial 47(H) 35 - 45 mm Hg 10/26/2024 6:23 AM EDT [facility] pO2, Arterial 127(H) 80 - 100 mm Hg 10/26/2024 6:23 AM EDT [facility] HCO3, Arterial 21(L) 22 - 26 mmol/L 10/26/2024 6:23 AM EDT [facility] CO2 Content,Arteri al 23 23 - 27 mmol/L 10/26/2024 6:23 AM EDT [facility] Base Excess, Arterial -5.4(L) -2.0 - 3.0 mmol/L 10/26/2024 6:23 AM EDT [facility] %HBO2, Arterial 94.6(L) 95.0 - 98.0 % 10/26/2024 6:23 AM EDT [facility] Carboxyhemoglo bin, Arterial 2.0 % 10/26/2024 6:23 AM EDT [facility] Comment: CARBOXYHEMOGLOBIN (CO) REFERENCE RANGES: Non-Smokers: <2 % Smokers: <8 % TOXIC: >20 % Methemoglobin, Arterial 1.6(H) 0.0 - 1.5 % 10/26/2024 6:23 AM EDT [facility] Reduced hemoglobin, Arterial 1.8 0.0 - 5.0 % 10/26/2024 6:23 AM EDT [facility] Blood, Arterial 10/26/2024 6 :10 AM EDT 10/26/2024 6:20 AM EDT Sveta Judge MD LAB BLOOD ORDERABLES Final Resu lt Performing Organization Address [facility] Co de Phone Number [facility] [address] [facility]. [address] * Magnesium (10/26/2024 6:10 AM EDT) Magnesium 1.5 1.5 - 2.5 mg/dL 10/26/2024 7:09 AM EDT [facility] Plasma 10/26/2024 6:10 AM EDT 10/26/2024 6:23 AM EDT Sveta Judge MD LAB BLOOD ORDERABLES Final Resu lt Performing Organization Address [facility] Co de Phone Number [facility] [address] * (ABNORMAL) Hepatic Function Panel (10/26/2024 6:10 AM EDT) Total Bilirubin 6.2(H) 0.0 - 1.5 mg/dL 10/26/2024 7:11 AM EDT [facility] Bilirubin, Direct 5.26(H) 0.00 - 0.40 mg/dL 10/26/2024 7:11 AM EDT [facility] AST 1,071(H) 13 - 39 U/L 10/26/2024 7:11 AM EDT [facility] ALT 805(H) 7 - 52 U/L 10/26/2024 7:11 AM EDT [facility] Alkaline Phosphatase 55 36 - 125 U/L 10/26/2024 7:11 AM EDT [facility] Total Protein <3.0(L) 6.4 - 8.9 g/dL 10/26/2024 7:11 AM EDT [facility] Albumin 1.9(L) 3.5 - 5.7 g/dL 10/26/2024 7:11 AM EDT [facility] Bilirubin, Indirect 0.94 0.00 - 1.10 mg/dL 10/26/2024 7:11 AM EDT [facility] Plasma 10/26/2024 6:10 AM EDT 10/26/2024 6:23 AM EDT us Sveta Judge MD LAB BLOOD ORDERABLES Final Resu lt [facility] [address] [id number] * (ABNORMAL) Renal Function Panel w/EGFR (10/26/2024 6:10 AM EDT) Sodium 141 133 - 146 mmol/L 10/26/2024 7:09 AM EDT [facility] Potassium 2.8(LL) 3.5 - 5.3 mmol/L 10/26/2024 7:09 AM EDT [facility] Comment:Critical value previ ously called. Chloride 106 98 - 110 mmol/L 10/26/2024 7:09 AM EDT [facility] CO2 25 21 - 33 mmol/L 10/26/2024 7:09 AM EDT [facility] Anion Gap 10 3 - 16 mmol/L 10/26/2024 7:09 AM EDT [facility] BUN 57(H) 7 - 25 mg/dL 10/26/2024 7:09 AM EDT [facility] Creatinine 2.70(H) 0.60 - 1.30 mg/dL 10/26/2024 7:09 AM EDT [facility] Glucose 210(H) 70 - 100 mg/dL 10/26/2024 7:09 AM EDT [facility] Calcium 8.7 8.6 - 10.3 mg/dL 10/26/2024 7:09 AM EDT [facility] Phosphorus 5.4(H) 2.1 - 4.7 mg/dL 10/26/2024 7:09 AM EDT [facility] Albumin 1.9(L) 3.5 - 5.7 g/dL 10/26/2024 7:11 AM EDT [facility] Osmolality, Calculated 314(H) 278 - 305 mOsm/kg 10/26/2024 7:09 AM EDT [facility] EGFR 29 10/26/2024 7:09 AM EDT [facility] Comment:As of 2021, the estimated GFR [...] BLOOD ORDERABLES Final Resu lt [facility] [address] * (ABNORMAL) CBC (10/26/2024 6:10 AM EDT) WBC 14.8(H) 3.8 - 10.8 10E3/uL 10/26/2024 6:46 AM EDT [facility] RBC 4.04(L) 4.20 - 5.80 10E6/uL 10/26/2024 6:46 AM EDT [facility] Hemoglobin 12.7(L) 13.2 - 17.1 g/dL 10/26/2024 6:46 AM EDT [facility] Hematocrit 35.9(L) 38.5 - 50.0 % 10/26/2024 6:46 AM EDT [facility] MCV 89.0 80.0 - 100.0 fL 10/26/2024 6:46 AM EDT [facility] MCH 31.3 27.0 - 33.0 pg 10/26/2024 6:46 AM EDT [facility] MCHC 35.2 32.0 - 36.0 g/dL 10/26/2024 6:46 AM EDT [facility] RDW 19.7(H) 11.0 - 15.0 % 10/26/2024 6:46 AM EDT [facility] Platelets 107(L) 140 - 400 10E3/uL 10/26/2024 6:46 AM EDT [facility] MPV 7.4(L) 7.5 - 11.5 fL 10/26/2024 6:46 AM EDT [facility] Whole Blood 10/26/2024 6:10 AM EDT 10/26/2024 6:26 AM EDT us Sveta Judge MD LAB BLOOD ORDERABLES Final Resu lt [facility] [address] * (ABNORMAL) POC INR (10/26/2024 5:16 AM EDT) Prothrombin Time INR, POC 2.4(H) 0.8 - 1.4 10/27/2024 6:51 AM EDT [facility] Comment: Test results may vary using different testing platforms. Serial result monitoring should be performed using the same methodology. RECOMMENDED THERAPEUTIC RANGES USING INR : Stable oral anticoagulant therapy: 2.0 - 3.0 Mechanical prosthetic heart valve: 2.5 - 3.5 Recurrent acute myocardial infarction: 2.5 - 3.5 Blood 10/26/2024 5:16 AM EDT 10/27/2024 6:51 AM EDT Semaj Mcnair III, MD POINT OF CARE TEST ORDERABLES Final Result Performing Organization Address [facility]/ZIP Co de Phone Number [facility] [address] [facility]. [address] * POC Sample Type (10/26/2024 5:14 AM EDT) POC Sample Type Arterial 10/26/2024 5:31 AM EDT [facility] Blood, Arterial 10/26/2024 5 :14 AM EDT 10/26/2024 5:31 AM EDT Semaj Mcnair III, MD POINT OF CARE TEST ORDERABLES Final Result Performing Organization Address [facility] Co de Phone Number [facility] [address] [facility]. [address] * POC Anion Gap (10/26/2024 5:14 AM EDT) POC Anion Gap, Arterial 12 3 - 16 mmol/L 10/26/2024 5:31 AM EDT [facility] Blood, Arterial 10/26/2024 5 :14 AM EDT 10/26/2024 5:31 AM EDT us Semaj Mcnair III, MD POINT OF CARE TEST ORDERABLES Final Result Performing Organization Address [facility]/ZIP Co de Phone Number [facility] [address] [facility]. [address] * POC Chloride (10/26/2024 5:14 AM EDT) Pathologist [facility] POC Chloride 104 98 - 110 mmol/L 10/26/2024 5:31 AM EDT [facility] Blood, Arterial 10/26/2024 5 :14 AM EDT 10/26/2024 5:31 AM EDT us Semaj Mcnair III, MD POINT OF CARE TEST ORDERABLES Final Result [facility] [address] [facility]. [address] * (ABNORMAL) POC Hemoglobin (10/26/2024 5:14 AM EDT) [facility] POC Hemoglobin 9.5(L) 14.0 - 18.0 g/dL 10/26/2024 5:31 AM EDT [facility] Blood, Arterial 10/26/2024 5:14 AM EDT 10/26/2024 5:31 AM EDT us Semaj Mcnair III, MD POINT OF CARE TEST ORDERABLES Final Result Performing Organization Address [facility] Co de Phone Number [facility] [address] [place] [address]. [address] * (ABNORMAL) POC hematocrit (10/26/2024 5:14 AM EDT) [facility] POC Hematocrit 28.0(L) 40 - 52 % 10/26/2024 5:31 AM EDT [facility] Blood, Arterial 10/26/2024 5 :14 AM EDT 10/26/2024 5:31 AM EDT us Semaj Mcnair III, MD POINT OF CARE TEST ORDERABLES Final Result Performing Organization Address City/[facility]/ZIP Co de Phone Number [facility] [address] [facility]. [address] * POC Lactate (10/26/2024 5:14 AM EDT) POC Lactate 1.76 0.50 - 2.20 mmol/L 10/26/2024 5:31 AM EDT [facility] Blood, Arterial 10/26/2024 5 :14 AM EDT 10/26/2024 5:31 AM EDT us Semaj Mcnair III, MD POINT OF CARE TEST ORDERABLES Final Result Performing Organization Address [facility]/ZIP Co de Phone Number [facility] [address] [facility]. [address] * (ABNORMAL) POC Glucose (10/26/2024 5:14 AM EDT) POC Glucose, Arterial 183(H) 70 - 100 mg/dL 10/26/2024 5:31 AM EDT [facility] Blood, Arterial 10/26/2024 5 :14 AM EDT 10/26/2024 5:31 AM EDT us Semaj Mcnair III, MD POINT OF CARE TEST ORDERABLES Final Result Performing Organization Address [facility] Co de Phone Number [facility] [address] [place] [address]. [address] * (ABNORMAL) POC Ionized Calcium (10/26/2024 5:14 AM EDT) POC Ionized Calcium 5.50(H) 4.50 - 5.30 mg/dL 10/26/2024 5:31 AM EDT [facility] Blood, Arterial 10/26/2024 5 :14 AM EDT 10/26/2024 5:31 AM EDT us Semaj Mcnair III, MD POINT OF CARE TEST ORDERABLES Final Result Performing Organization Address [facility] Co de Phone Number [facility] [address] [facility]. [address] * (ABNORMAL) POC Potassium (10/26/2024 5:14 AM EDT) POC Potassium 2.8(LL) 3.5 - 5.3 mmol/L 10/26/2024 5:31 AM EDT [facility] Blood, Arterial 10/26/2024 5 :14 AM EDT 10/26/2024 5:31 AM EDT us Semaj Mcnair III, MD POINT OF CARE TEST ORDERABLES Final Result [facility] [address] [facility]. [address] * POC Sodium (10/26/2024 5:14 AM EDT) Pathologist [facility] POC Sodium 138 136 - 146 mmol/L 10/26/2024 5:31 AM EDT [facility] Blood, Arterial 10/26/2024 5 :14 AM EDT 10/26/2024 5:31 AM EDT us Semaj Mcnair III, MD POINT OF CARE TEST ORDERABLES Final Result Performing Organization Address [facility] Co de Phone Number [facility] [address] [place] [address]. [address] * POC TCO2 (10/26/2024 5:14 AM EDT) Pathologist [facility] POC TCO2, Arterial 23 23 - 27 mmol/L 10/26/2024 5:31 AM EDT [facility] Blood, Arterial 10/26/2024 5 :14 AM EDT 10/26/2024 5:31 AM EDT us Semaj Mcnair III, MD POINT OF CARE TEST ORDERABLES Final Result Performing Organization Address [facility] Co de Phone Number [facility] [address] [facility]. [address] * (ABNORMAL) POC O2 SAT (10/26/2024 5:14 AM EDT) Pathologist [facility] POC O2 Saturation, Arterial 99(H) 95 - 98 % 10/26/2024 5:31 AM EDT [facility] Blood, Arterial 10/26/2024 5 :14 AM EDT 10/26/2024 5:31 AM EDT us Semaj Mcnair III, MD POINT OF CARE TEST ORDERABLES Final Result Performing Organization Address [facility]/ZIP Co de Phone Number [facility] [address] [place] [address]. [address] * (ABNORMAL) POC Base Excess (10/26/2024 5:14 AM EDT) POC Base Excess, Arterial -5(L) -2 - 3 mmol/L 10/26/2024 5:31 AM EDT [facility] Blood, Arterial 10/26/2024 5 :14 AM EDT 10/26/2024 5:31 AM EDT us Semaj Mcnair III, MD POINT OF CARE TEST ORDERABLES Final Result Performing Organization Address [facility] Co de Phone Number [facility] [address] [facility]. [address] * POC HCO3 (10/26/2024 5:14 AM EDT) POC HCO3, Arterial 22 22 - 26 mmol/L 10/26/2024 5:31 AM EDT [facility] Blood, Arterial 10/26/2024 5 :14 AM EDT 10/26/2024 5:31 AM EDT us Semaj Mcnair III, MD POINT OF CARE TEST ORDERABLES Final Result Performing Organization Address [facility] Co de Phone Number [facility] [address] [place] [address]. [address] * (ABNORMAL) POC PO2 (10/26/2024 5:14 AM EDT) POC pO2, Arterial 133(H) 80 - 100 mm Hg 10/26/2024 5:31 AM EDT [facility] Blood, Arterial 10/26/2024 5 :14 AM EDT 10/26/2024 5:31 AM EDT us Semaj Mcnair III, MD POINT OF CARE TEST ORDERABLES Final Result Performing Organization Address [facility]/ZIP Co de Phone Number [facility] [address] * POC PCO2 (10/26/2024 5:14 AM EDT) POC pCO2, Arterial 45 35 - 45 mm Hg 10/26/2024 5:31 AM EDT [facility] Blood, Arterial 10/26/2024 5 :14 AM EDT 10/26/2024 5:31 AM EDT Semaj Mcnair III, MD POINT OF CARE TEST ORDERABLES Final Result Performing Organization Address [facility] Co de Phone Number [facility] [address] * (ABNORMAL) POC pH (10/26/2024 5:14 AM EDT) POC pH, Arterial 7.29(L) 7.35 - 7.45 10/26/2024 5:31 AM EDT [facility] Blood, Arterial 10/26/2024 5 :14 AM EDT 10/26/2024 5:31 AM EDT us Semaj Mcnair III, MD POINT OF CARE TEST ORDERABLES Final Result Performing Organization Address [facility] Co de Phone Number [facility] [address] * Transfuse Cryoprecipitate (10/26/2024 4:37 AM EDT) us Eber Quinones MD NURSING TREATMENT ORDERA BLES - BLOOD ADMIN Final Result * Transfuse Cryoprecipitate (10/26/2024 4:37 AM EDT) Eber Quinones MD NURSING TREATMENT ORDERA BLES - BLOOD ADMIN Final Result * (ABNORMAL) POC INR (10/26/2024 4:27 AM EDT) Pathologist [facility] Prothrombin Time INR, POC 2.3(H) 0.8 - 1.4 10/27/2024 6:51 AM EDT [facility] Comment: Test results may vary using [...] CARE TEST ORDERABLES Final Result [facility] [address] [facility]. [address] * POC Sample Type (10/26/2024 4:24 AM EDT) [facility] POC Sample Type Arterial 10/26/2024 5:09 AM EDT [facility] Blood, Arterial 10/26/2024 4 :24 AM EDT 10/26/2024 5:[address] [facility] Semaj Mcnair III, MD POINT OF CARE TEST ORDERABLES Final Result [facility] [address] * POC Anion Gap (10/26/2024 4:24 AM EDT) Pathologist [facility] POC Anion Gap, Arterial 14 3 - 16 mmol/L 10/26/2024 5:09 AM EDT [facility] Blood, Arterial 10/26/2024 4 :24 AM EDT 10/26/2024 5:09 AM EDT us Semaj Mcnair III, MD POINT OF CARE TEST ORDERABLES Final Result Performing Organization Address [facility]/ZIP Co de Phone Number [facility] [address] * POC Chloride (10/26/2024 4:24 AM EDT) POC Chloride 103 98 - 110 mmol/L 10/26/2024 5:09 AM EDT [facility] Blood, Arterial 10/26/2024 4 :24 AM EDT 10/26/2024 5:09 AM EDT us Semaj Mcnair III, MD POINT OF CARE TEST ORDERABLES Final Result Performing Organization Address [facility] Co de Phone Number [facility] [address] [facility] * (ABNORMAL) POC Hemoglobin (10/26/2024 4:24 AM EDT) POC Hemoglobin 10.3(L) 14.0 - 18.0 g/dL 10/26/2024 5:09 AM EDT [facility] Blood, Arterial 10/26/2024 4 :24 AM EDT 10/26/2024 5:09 AM EDT us Semaj Mcnair III, MD POINT OF CARE TEST ORDERABLES Final Result [facility] [address] [facility] * (ABNORMAL) POC hematocrit (10/26/2024 4:24 AM EDT) POC Hematocrit 30.0(L) 40 - 52 % 10/26/2024 5:09 AM EDT [facility] Blood, Arterial 10/26/2024 4 :24 AM EDT 10/26/2024 5:09 AM EDT us Semaj Mcnair III, MD POINT OF CARE TEST ORDERABLES Final Result Performing Organization Address [facility] Co de Phone Number [facility] [address] * (ABNORMAL) POC Lactate (10/26/2024 4:24 AM EDT) POC Lactate 2.43(H) 0.50 - 2.20 mmol/L 10/26/2024 5:09 AM EDT [facility] Blood, Arterial 10/26/2024 4 :24 AM EDT 10/26/2024 5:09 AM EDT us Semaj Mcnair III, MD POINT OF CARE TEST ORDERABLES Final Result Performing Organization Address [facility] de Phone Number [facility] [address] [facility]. [address] * (ABNORMAL) POC Glucose (10/26/2024 4:24 AM EDT) POC Glucose, Arterial 185(H) 70 - 100 mg/dL 10/26/2024 5:09 AM EDT [facility] Blood, Arterial 10/26/2024 4 :24 AM EDT 10/26/2024 5:09 AM EDT us Semaj Mcnair III, MD POINT OF CARE TEST ORDERABLES Final Result Performing Organization Address [facility] Co de Phone Number [facility] [address] * POC Ionized Calcium (10/26/2024 4:24 AM EDT) POC Ionized Calcium 5.20 4.50 - 5.30 mg/dL 10/26/2024 5:09 AM EDT [facility] Blood, Arterial 10/26/2024 4 :24 AM EDT 10/26/2024 5:09 AM EDT us Semaj Mcnair III, MD POINT OF CARE TEST ORDERABLES Final Result Performing Organization Address [facility]/ZIP Co de Phone Number [facility] [address] * (ABNORMAL) POC Potassium (10/26/2024 4:24 AM EDT) POC Potassium 2.8(LL) 3.5 - 5.3 mmol/L 10/26/2024 5:09 AM EDT [facility] Blood, Arterial 10/26/2024 4 :24 AM EDT 10/26/2024 5:09 AM EDT us Semaj Mcnair III, MD POINT OF CARE TEST ORDERABLES Final Result Performing Organization Address [facility] Co de Phone Number [facility] [address] [place] [facility]. [address] * POC Sodium (10/26/2024 4:24 AM EDT) POC Sodium 139 136 - 146 mmol/L 10/26/2024 5:09 AM EDT [facility] Blood, Arterial 10/26/2024 4 :24 AM EDT 10/26/2024 5:09 AM EDT us Semaj Mcnair III, MD POINT OF CARE TEST ORDERABLES Final Result Performing Organization Address [facility] Co de Phone Number [place] [address] [place] [facility]. [address] * POC TCO2 (10/26/2024 4:24 AM EDT) POC TCO2, Arterial 23 23 - 27 mmol/L 10/26/2024 5:09 AM EDT [facility] Blood, Arterial 10/26/2024 4 :24 AM EDT 10/26/2024 5:09 AM EDT us Semaj Mcnair III, MD POINT OF CARE TEST ORDERABLES Final Result Performing Organization Address [facility]/ZIP Co de Phone Number [facility] [address] [place] [facility]. [address] * POC O2 SAT (10/26/2024 4:24 AM EDT) POC O2 Saturation, Arterial 96 95 - 98 % 10/26/2024 5:09 AM EDT [facility] Blood, Arterial 10/26/2024 4 :24 AM EDT 10/26/2024 5:09 AM EDT us Semaj Mcnair III, MD POINT OF CARE TEST ORDERABLES Final Result Performing Organization Address [facility] Co de Phone Number [facility] [address] [place] [facility]. [address] * (ABNORMAL) POC Base Excess (10/26/2024 4:24 AM EDT) POC Base Excess, Arterial -5(L) -2 - 3 mmol/L 10/26/2024 5:09 AM EDT [facility] Blood, Arterial 10/26/2024 4 :24 AM EDT 10/26/2024 5:09 AM EDT us Semaj Mcnair III, MD POINT OF CARE TEST ORDERABLES Final Result Performing Organization Address [facility]/ZIP Co de Phone Number [facility] [address] [place] [facility]. [address] * POC HCO3 (10/26/2024 4:24 AM EDT) POC HCO3, Arterial 22 22 - 26 mmol/L 10/26/2024 5:09 AM EDT [facility] Blood, Arterial 10/26/2024 4 :24 AM EDT 10/26/2024 5:09 AM EDT us Semaj Mcnair III, MD POINT OF CARE TEST ORDERABLES Final Result [facility] [address] * POC PO2 (10/26/2024 4:24 AM EDT) POC pO2, Arterial 93 80 - 100 mm Hg 10/26/2024 5:09 AM EDT [facility] Blood, Arterial 10/26/2024 4 :24 AM EDT 10/26/2024 5:09 AM EDT us Semaj Mcnair III, MD POINT OF CARE TEST ORDERABLES Final Result Performing Organization Address [facility]/ZIP Co de Phone Number [facility] [address] * POC PCO2 (10/26/2024 4:24 AM EDT) POC pCO2, Arterial 44 35 - 45 mm Hg 10/26/2024 5:09 AM EDT [facility] Blood, Arterial 10/26/2024 4 :24 AM EDT 10/26/2024 5:09 AM EDT us Semaj Mcnair III, MD POINT OF CARE TEST ORDERABLES Final Result Performing Organization Address City/[facility]/ZIP Co de Phone Number [facility] [address] * (ABNORMAL) POC pH (10/26/2024 4:24 AM EDT) POC pH, Arterial 7.30(L) 7.35 - 7.45 10/26/2024 5:09 AM EDT [facility] Blood, Arterial 10/26/2024 4 :24 AM EDT 10/26/2024 5:09 AM EDT us Semaj Mcnair III, MD POINT OF CARE TEST ORDERABLES Final Result [facility] [address] * Transfuse Platelets (10/26/2024 4:14 AM EDT) Ben Blake MD NURSING TREATMENT ORDERABLES - BLOOD ADMIN Final Result * Transfuse Fresh Frozen Plasma (10/26/2024 3:47 AM EDT) Ben Blake MD NURSING TREATMENT ORDERABLES - BLOOD ADMIN Final Result * (ABNORMAL) POC INR (10/26/2024 3:34 AM EDT) Prothrombin Time INR, POC 2.8(H) 0.8 - 1.4 10/27/2024 6:51 AM EDT [facility] Comment: Test results may vary using different testing platforms. Serial result monitoring should be performed using the same methodology. RECOMMENDED THERAPEUTIC RANGES USING INR : Stable oral anticoagulant therapy: 2.0 - 3.0 Mechanical prosthetic heart valve: 2.5 - 3.5 Recurrent acute myocardial infarction: 2.5 - 3.5 Blood 10/26/2024 3:34 AM EDT 10/27/2024 6:51 AM EDT Semaj Mcnair III, MD POINT OF CARE TEST ORDERABLES Final Result [facility] [address] [facility] * POC Sample Type (10/26/2024 3:31 AM EDT) POC Sample Type Arterial 10/26/2024 4:11 AM EDT [facility] Blood, Arterial 10/26/2024 3 :31 AM EDT 10/26/2024 4:11 AM EDT Semaj Mcnair III, MD POINT OF CARE TEST ORDERABLES Final Result [facility] [address] [facility] - [place]. [address] * POC Anion Gap (10/26/2024 3:31 AM EDT) POC Anion Gap, Arterial 15 3 - 16 mmol/L 10/26/2024 4:11 AM EDT [facility] Blood, Arterial 10/26/2024 3 :31 AM EDT 10/26/2024 4:11 AM EDT us Semaj Mcnair III, MD POINT OF CARE TEST ORDERABLES Final Result Performing Organization Address City/[facility] Co de Phone Number [facility] [address] [place] [address]. [address] * POC Chloride (10/26/2024 3:31 AM EDT) Pathologist [facility] POC Chloride 105 98 - 110 mmol/L 10/26/2024 4:11 AM EDT [facility] Blood, Arterial 10/26/2024 3 :31 AM EDT 10/26/2024 4:11 AM EDT us Semaj Mcnair III, MD POINT OF CARE TEST ORDERABLES Final Result Performing Organization Address [facility] de Phone Number [facility] [address] [place] [address]. [address] * (ABNORMAL) POC Hemoglobin (10/26/2024 3:31 AM EDT) [facility] POC Hemoglobin 9.7(L) 14.0 - 18.0 g/dL 10/26/2024 4:11 AM EDT [facility] Blood, Arterial 10/26/2024 3 :31 AM EDT 10/26/2024 4:11 AM EDT us Semaj Mcnair III, MD POINT OF CARE TEST ORDERABLES Final Result Performing Organization Address [facility] Co de Phone Number [facility] [address] [place] [address]. [address] * (ABNORMAL) POC hematocrit (10/26/2024 3:31 AM EDT) Pathologist [facility] POC Hematocrit 29.0(L) 40 - 52 % 10/26/2024 4:11 AM EDT [facility] Blood, Arterial 10/26/2024 3 :31 AM EDT 10/26/2024 4:11 AM EDT us Semaj Mcnair III, MD POINT OF CARE TEST ORDERABLES Final Result Performing Organization Address City/[facility]/ZIP Co de Phone Number [facility] [address] [address] * (ABNORMAL) POC Lactate (10/26/2024 3:31 AM EDT) POC Lactate 3.54(H) 0.50 - 2.20 mmol/L 10/26/2024 4:11 AM EDT [facility] Blood, Arterial 10/26/2024 3 :31 AM EDT 10/26/2024 4:11 AM EDT us Semaj Mcnair III, MD POINT OF CARE TEST ORDERABLES Final Result Performing Organization Address [facility] Co de Phone Number [facility] [address] [address] [facility]. [address] * (ABNORMAL) POC Glucose (10/26/2024 3:31 AM EDT) POC Glucose, Arterial 153(H) 70 - 100 mg/dL 10/26/2024 4:11 AM EDT [facility] Blood, Arterial 10/26/2024 3 :31 AM EDT 10/26/2024 4:11 AM EDT us Semaj Mcnair III, MD POINT OF CARE TEST ORDERABLES Final Result Performing Organization Address City/[facility] Co de Phone Number [facility] [address] [facility]. [address] * POC Ionized Calcium (10/26/2024 3:31 AM EDT) POC Ionized Calcium 5.10 4.50 - 5.30 mg/dL 10/26/2024 4:11 AM EDT [facility] Blood, Arterial 10/26/2024 3 :31 AM EDT 10/26/2024 4:11 AM EDT us Semaj Mcnair III, MD POINT OF CARE TEST ORDERABLES Final Result Performing Organization Address City/[facility]/ZIP Co de Phone Number [facility] [address] [facility]. [address] * (ABNORMAL) POC Potassium (10/26/2024 3:31 AM EDT) POC Potassium 2.6(LL) 3.5 - 5.3 mmol/L 10/26/2024 4:11 AM EDT [facility] Blood, Arterial 10/26/2024 3 :31 AM EDT 10/26/2024 4:11 AM EDT us Semaj Mcnair III, MD POINT OF CARE TEST ORDERABLES Final Result Performing Organization Address [facility] Co de Phone Number [facility] [address] [facility]. [address] * POC Sodium (10/26/2024 3:31 AM EDT) POC Sodium 138 136 - 146 mmol/L 10/26/2024 4:11 AM EDT [facility] Blood, Arterial 10/26/2024 3 :31 AM EDT 10/26/2024 4:11 AM EDT us Semaj Mcnair III, MD POINT OF CARE TEST ORDERABLES Final Result Performing Organization Address City/[facility] Co de Phone Number [facility] [address] [facility]. [address] * (ABNORMAL) POC TCO2 (10/26/2024 3:31 AM EDT) POC TCO2, Arterial 19(L) 23 - 27 mmol/L 10/26/2024 4:11 AM EDT [facility] Blood, Arterial 10/26/2024 3 :31 AM EDT 10/26/2024 4:11 AM EDT us Semaj Mcnair III, MD POINT OF CARE TEST ORDERABLES Final Result Performing Organization Address City/[facility]/ZIP Co de Phone Number [facility] [address] * POC O2 SAT (10/26/2024 3:31 AM EDT) POC O2 Saturation, Arterial 97 95 - 98 % 10/26/2024 4:11 AM EDT [facility] Blood, Arterial 10/26/2024 3 :31 AM EDT 10/26/2024 4:11 AM EDT us Semaj Mcnair III, MD POINT OF CARE TEST ORDERABLES Final Result Performing Organization Address [facility] Co de Phone Number [facility] [address] * (ABNORMAL) POC Base Excess (10/26/2024 3:31 AM EDT) POC Base Excess, Arterial -9(L) -2 - 3 mmol/L 10/26/2024 4:11 AM EDT [facility] Blood, Arterial 10/26/2024 3 :31 AM EDT 10/26/2024 4:11 AM EDT us Semaj Mcnair III, MD POINT OF CARE TEST ORDERABLES Final Result Performing Organization Address City/[facility]/ZIP Co de Phone Number [facility] [address] [facility]. [address] * (ABNORMAL) POC HCO3 (10/26/2024 3:31 AM EDT) POC HCO3, Arterial 18(L) 22 - 26 mmol/L 10/26/2024 4:11 AM EDT [facility] Blood, Arterial 10/26/2024 3 :31 AM EDT 10/26/2024 4:11 AM EDT us Semaj Mcnair III, MD POINT OF CARE TEST ORDERABLES Final Result Performing Organization Address City/[facility] Co de Phone Number [facility] [address] * (ABNORMAL) POC PO2 (10/26/2024 3:31 AM EDT) POC pO2, Arterial 104(H) 80 - 100 mm Hg 10/26/2024 4:11 AM EDT [facility] Blood, Arterial 10/26/2024 3 :31 AM EDT 10/26/2024 4:11 AM EDT us Semaj Mcnair III, MD POINT OF CARE TEST ORDERABLES Final Result Performing Organization Address [facility] Co de Phone Number [facility] [address] * POC PCO2 (10/26/2024 3:31 AM EDT) POC pCO2, Arterial 42 35 - 45 mm Hg 10/26/2024 4:11 AM EDT [facility] Blood, Arterial 10/26/2024 3 :31 AM EDT 10/26/2024 4:11 AM EDT Semaj Mcnair III, MD POINT OF CARE TEST ORDERABLES Final Result Performing Organization Address City/[facility] Co de Phone Number [facility] [address] [facility]. [address] * (ABNORMAL) POC pH (10/26/2024 3:31 AM EDT) POC pH, Arterial 7.24(L) 7.35 - 7.45 10/26/2024 4:11 AM EDT [facility] Blood, Arterial 10/26/2024 3 :31 AM EDT 10/26/2024 4:11 AM EDT us Semaj Mcnair III, MD POINT OF CARE TEST ORDERABLES Final Result Performing Organization Address [facility] Co de Phone Number [facility] [address] * (ABNORMAL) TEG-Global With Lysis (Baseline TEG with LY30, Will NOT Show Heparin Effect) (53:31 AM EDT) Citrated Kaolin Reaction Time (TEGLYSIS) 6.8 4.6 - 9.1 minutes 10/26/2024 5:02 AM EDT [facility] Citrated Rapid Teg Maximum Amplitude (TEGLYSIS) <40.0(L) 52.0 - 70.0 mm 10/26/2024 5:02 AM EDT [facility] Citrated Functional Fibrinogen Maximum Amplitude (TEGLYSIS) <4.0(L) 15.0 - 32.0 mm 10/26/2024 5:02 AM EDT [facility] Citrated Kaolin Percent Lysis (TEGLYSIS) 1.4 0.0 - 2.6 % 10/26/2024 5:02 AM EDT [facility] Whole Blood (Citrate) 10/26/2024 3:31 AM EDT 10/26/2024 3:40 AM EDT us Eber Quinones MD LAB BLOOD ORDERABLES Fin al Result Performing Organization Address [facility] Co de Phone Number [facility] [address] [facility] [place]. [address] * (ABNORMAL) CBC (10/26/2024 3:31 AM EDT) WBC 9.5 3.8 - 10.8 10E3/uL 10/26/2024 3:48 AM EDT [facility] RBC 3.68(L) 4.20 - 5.80 10E6/uL 10/26/2024 3:48 AM EDT [facility] Hemoglobin 11.5(L) 13.2 - 17.1 g/dL 10/26/2024 3:48 AM EDT [facility] Hematocrit 33.0(L) 38.5 - 50.0 % 10/26/2024 3:48 AM EDT [facility] MCV 89.6 80.0 - 100.0 fL 10/26/2024 3:48 AM EDT [facility] MCH 31.1 27.0 - 33.0 pg 10/26/2024 3:48 AM EDT [facility] MCHC 34.8 32.0 - 36.0 g/dL 10/26/2024 3:48 AM EDT [facility] RDW 19.3(H) 11.0 - 15.0 % 10/26/2024 3:48 AM EDT [facility] Platelets 67(L) 140 - 400 10E3/uL 10/26/2024 3:48 AM EDT [facility] MPV 7.9 7.5 - 11.5 fL 10/26/2024 3:48 AM EDT [facility] Whole Blood 10/26/2024 3:31 AM EDT 10/26/2024 3:40 AM EDT us Eber Quinones MD LAB BLOOD ORDERABLES Fin al Result [facility] [address] * (ABNORMAL) Protime-INR (10/26/2024 3:31 AM EDT) Protime 27.0(H) 12.1 - 15.1 seconds 10/26/2024 3:51 AM EDT [facility] INR 2.4(H) 0.9 - 1.1 10/26/2024 3:51 AM EDT [facility] Comment: RECOMMENDED THERAPEUTIC RANGES USING INR : Stable oral anticoagulant therapy: 2.0 - 3.0 Mechanical prosthetic heart valve: 2.5 - 3.5 Recurrent acute myocardial infarction: 2.5 - 3.5 Plasma 10/26/2024 3:31 AM EDT 10/26/2024 3:40 AM EDT us Eber Quinones MD LAB BLOOD ORDERABLES Fin al Result [facility] [address] [facility] [place]. [address] * (ABNORMAL) Fibrinogen (10/26/2024 3:31 AM EDT) Fibrinogen 104(L) 218 - 406 mg/dL 10/26/2024 3:56 AM EDT [facility] Plasma 10/26/2024 3:31 AM EDT 10/26/2024 3:40 AM EDT Eber Quinones MD LAB BLOOD ORDERABLES Fin al Result Performing Organization Address [facility] Co de Phone Number [facility] [address] [facility] [place]. [address] * Transfuse Fresh Frozen Plasma (10/26/2024 [...] Frozen Plasma (10/26/2024 2:03 AM EDT) Result [facility] Ben Blake MD NURSING TREATMENT ORDERABLES - BLOOD ADMIN Final Result * Transfuse RBC (10/26/2024 2:01 AM EDT) Result [facility] Ben Blake MD NURSING TREATMENT ORDERABLES - BLOOD ADMIN Final Result * Transfuse RBC (10/26/2024 1:45 AM EDT) Result [facility] Ben Blake MD NURSING TREATMENT ORDERABLES - BLOOD ADMIN Final Result * Transfuse RBC (10/26/2024 1:45 AM EDT) Result [facility] Ben Blake MD NURSING TREATMENT ORDERABLES - BLOOD ADMIN Final Result * (ABNORMAL) POC INR (10/26/2024 1:43 AM EDT) [facility] Signature Prothrombin Time INR, POC 1.9(H) 0.8 - [...] AM EDT 10/27/2024 6:[address] [facility] Semaj Mcnair III, MD POINT OF CARE TEST ORDERABLES Final Result [facility] [address] [place] [address], [facility] * Transfuse Fresh Frozen Plasma (10/26/2024 1:41 AM EDT) Result [facility] Ben Blake MD NURSING TREATMENT ORDERABLES - BLOOD ADMIN Final Result * Transfuse RBC (10/26/2024 1:40 AM EDT) Result [facility] Ben Blake MD NURSING TREATMENT ORDERABLES - BLOOD ADMIN Final Result * POC Sample Type (10/26/2024 1:40 AM EDT) [facility] POC Sample Type Arterial 10/26/2024 2:32 AM EDT [facility] Blood, Arterial 10/26/2024 1 :40 AM EDT 10/26/2024 2:32 AM EDT us Semaj Mcnair III, MD POINT OF CARE TEST ORDERABLES Final Result [facility] [address] [place] [address]. [address] * POC Anion Gap (10/26/2024 1:40 AM EDT) [facility] POC Anion Gap, Arterial 13 3 - 16 mmol/L 10/26/2024 2:32 AM EDT [facility] Blood, Arterial 10/26/2024 1 :40 AM EDT 10/26/2024 2:32 AM EDT us Semaj Mcnair III, MD POINT OF CARE TEST ORDERABLES Final Result Performing Organization Address [facility] Co de Phone Number [facility] [address] * POC Chloride (10/26/2024 1:40 AM EDT) [facility] POC Chloride 104 98 - 110 mmol/L 10/26/2024 2:32 AM EDT [facility] Blood, Arterial 10/26/2024 1 :40 AM EDT 10/26/2024 2:32 AM EDT us Semaj cMnair III, MD POINT OF CARE TEST ORDERABLES Final Result Performing Organization Address City/[facility] Co de Phone Number [facility] [address] * (ABNORMAL) POC Hemoglobin (10/26/2024 1:40 AM EDT) [facility] POC Hemoglobin 7.4(L) 14.0 - 18.0 g/dL 10/26/2024 2:32 AM EDT [facility] Blood, Arterial 10/26/2024 1 :40 AM EDT 10/26/2024 2:32 AM EDT us Semaj Mcnair III, MD POINT OF CARE TEST ORDERABLES Final Result Performing Organization Address City/[facility]/ZIP Co de Phone Number [facility] [address] [place] [address] [address] [facility]. [address] * (ABNORMAL) POC hematocrit (10/26/2024 1:40 AM EDT) POC Hematocrit 22.0(L) 40 - 52 % 10/26/2024 2:32 AM EDT [facility] Blood, Arterial 10/26/2024 1 :40 AM EDT 10/26/2024 2:32 AM EDT us Semaj Mcnair III, MD POINT OF CARE TEST ORDERABLES Final Result Performing Organization Address [facility] Co de Phone Number [facility] [address] [facility]. [address] * (ABNORMAL) POC Lactate (10/26/2024 1:40 AM EDT) POC Lactate 2.30(H) 0.50 - 2.20 mmol/L 10/26/2024 2:32 AM EDT [facility] Blood, Arterial 10/26/2024 1 :40 AM EDT 10/26/2024 2:32 AM EDT us Semaj Mcnair III, MD POINT OF CARE TEST ORDERABLES Final Result Performing Organization Address City/[facility] Co de Phone Number [facility] [address] [facility]. [address] * (ABNORMAL) POC Glucose (10/26/2024 1:40 AM EDT) POC Glucose, Arterial 116(H) 70 - 100 mg/dL 10/26/2024 2:32 AM EDT [facility] Blood, Arterial 10/26/2024 1 :40 AM EDT 10/26/2024 2:32 AM EDT us Semaj Mcnair III, MD POINT OF CARE TEST ORDERABLES Final Result Performing Organization Address City/[facility] Co de Phone Number [facility] [address] [place] [address]. [address] * (ABNORMAL) POC Ionized Calcium (10/26/2024 1:40 AM EDT) POC Ionized Calcium 4.10(L) 4.50 - 5.30 mg/dL 10/26/2024 2:32 AM EDT [facility] Blood, Arterial 10/26/2024 1 :40 AM EDT 10/26/2024 2:32 AM EDT us Semaj Mcnair III, MD POINT OF CARE TEST ORDERABLES Final Result Performing Organization Address [facility] Co de Phone Number [facility] [address] [facility]. [address] * (ABNORMAL) POC Potassium (10/26/2024 1:40 AM EDT) POC Potassium 2.6(LL) 3.5 - 5.3 mmol/L 10/26/2024 2:32 AM EDT [facility] Blood, Arterial 10/26/2024 1 :40 AM EDT 10/26/2024 2:32 AM EDT us Semaj Mcnair III, MD POINT OF CARE TEST ORDERABLES Final Result Performing Organization Address City/[facility] Co de Phone Number [facility] [address] [facility]. [address] * (ABNORMAL) POC Sodium (10/26/2024 1:40 AM EDT) POC Sodium 135(L) 136 - 146 mmol/L 10/26/2024 2:32 AM EDT [facility] Blood, Arterial 10/26/2024 1 :40 AM EDT 10/26/2024 2:32 AM EDT us Semaj Mcnair III, MD POINT OF CARE TEST ORDERABLES Final Result Performing Organization Address City/[facility] Co de Phone Number [facility] [address] [facility] [place]. [address] * (ABNORMAL) POC TCO2 (10/26/2024 1:40 AM EDT) POC TCO2, Arterial 19(L) 23 - 27 mmol/L 10/26/2024 2:32 AM EDT [facility] Blood, Arterial 10/26/2024 1 :40 AM EDT 10/26/2024 2:32 AM EDT Semaj Mcnair III, MD POINT OF CARE TEST ORDERABLES Final Result Performing Organization Address [facility] Co de Phone Number [facility] [address] [facility]. [address] * (ABNORMAL) POC O2 SAT (10/26/2024 1:40 AM EDT) POC O2 Saturation, Arterial 99(H) 95 - 98 % 10/26/2024 2:32 AM EDT [facility] Blood, Arterial 10/26/2024 1 :40 AM EDT 10/26/2024 2:32 AM EDT Semaj Mcnair III, MD POINT OF CARE TEST ORDERABLES Final Result Performing Organization Address City/[facility] Co de Phone Number [facility] [address] [facility]. [address] * (ABNORMAL) POC Base Excess (10/26/2024 1:40 AM EDT) POC Base Excess, Arterial -7(L) -2 - 3 mmol/L 10/26/2024 2:32 AM EDT [facility] Blood, Arterial 10/26/2024 1 :40 AM EDT 10/26/2024 2:32 AM EDT us Semaj Mcnair III, MD POINT OF CARE TEST ORDERABLES Final Result [facility] [address] [facility]. [address] * (ABNORMAL) POC HCO3 (10/26/2024 1:40 AM EDT) POC HCO3, Arterial 18(L) 22 - 26 mmol/L 10/26/2024 2:32 AM EDT [facility] Blood, Arterial 10/26/2024 1 :40 AM EDT 10/26/2024 2:32 AM EDT us Semaj Mcnair III, MD POINT OF CARE TEST ORDERABLES Final Result Performing Organization Address [facility]/ZIP Co de Phone Number [facility] [address] * (ABNORMAL) POC PO2 (10/26/2024 1:40 AM EDT) POC pO2, Arterial 145(H) 80 - 100 mm Hg 10/26/2024 2:32 AM EDT [facility] Blood, Arterial 10/26/2024 1 :40 AM EDT 10/26/2024 2:32 AM EDT us Semaj Mcnair III, MD POINT OF CARE TEST ORDERABLES Final Result [facility] [address] [facility] * (ABNORMAL) POC PCO2 (10/26/2024 1:40 AM EDT) POC pCO2, Arterial 33(L) 35 - 45 mm Hg 10/26/2024 2:32 AM EDT [facility] Blood, Arterial 10/26/2024 1 :40 AM EDT 10/26/2024 2:32 AM EDT us Semaj Mcnair III, MD POINT OF CARE TEST ORDERABLES Final Result Performing Organization Address [facility] Co de Phone Number [facility] [address] * POC pH (10/26/2024 1:40 AM EDT) POC pH, Arterial 7.35 7.35 - 7.45 10/26/2024 2:32 AM EDT [facility] Blood, Arterial 10/26/2024 1 :40 AM EDT 10/26/2024 2:32 AM EDT us Semaj Mcnair III, MD POINT OF CARE TEST ORDERABLES Final Result Performing Organization Address [facility] Co de Phone Number [facility] [address] * Transfuse Fresh Frozen Plasma (10/26/2024 1:20 AM EDT) Result [facility] Ben Blake MD NURSING TREATMENT ORDERABLES - BLOOD ADMIN Final Result * Transfuse RBC (10/26/2024 12:56 AM EDT) Result [facility] Ben Blake MD NURSING TREATMENT ORDERABLES - BLOOD ADMIN Final Result * (ABNORMAL) POC INR (10/26/2024 12:41 AM EDT) Prothrombin Time INR, POC 2.0(H) 0.8 - 1.4 10/27/2024 6:51 AM EDT [facility] Comment: Test results may vary using [...] TEST ORDERABLES Final Result Performing Organization Address City/[facility] Co de Phone Number [facility] [address] [place] [address]. [address] * POC Sample Type (10/26/2024 12:39 AM EDT) POC Sample Type Arterial 10/26/2024 1:38 AM EDT [facility] Blood, Arterial 10/26/2024 1 2:39 AM EDT 10/26/2024 1:38 AM EDT us Semaj Mcnair III, MD POINT OF CARE TEST ORDERABLES Final Result Performing Organization Address [facility] Co de Phone Number [facility] [address] [place] [address]. [address] * POC Anion Gap (10/26/2024 12:39 AM EDT) POC Anion Gap, Arterial 13 3 - 16 mmol/L 10/26/2024 1:38 AM EDT [facility] Blood, Arterial 10/26/2024 1 2:39 AM EDT 10/26/2024 1:38 AM EDT us Semaj Mcnair III, MD POINT OF CARE TEST ORDERABLES Final Result Performing Organization Address City/[facility] Co de Phone Number [facility] [address] [place] [address]. [address] * POC Chloride (10/26/2024 12:39 AM EDT) POC Chloride 103 98 - 110 mmol/L 10/26/2024 1:38 AM EDT [facility] Blood, Arterial 10/26/2024 1 2:39 AM EDT 10/26/2024 1:38 AM EDT us Semaj Mcnair III, MD POINT OF CARE TEST ORDERABLES Final Result Performing Organization Address City/[facility]/ZIP Co de Phone Number [facility] [address] [facility]. [address] * (ABNORMAL) POC Hemoglobin (10/26/2024 12:39 AM EDT) POC Hemoglobin 7.9(L) 14.0 - 18.0 g/dL 10/26/2024 1:38 AM EDT [facility] Blood, Arterial 10/26/2024 1 2:39 AM EDT 10/26/2024 1:38 AM EDT Semaj Mcnair III, MD POINT OF CARE TEST ORDERABLES Final Result Performing Organization Address [facility] Co de Phone Number [facility] [address] [facility] * (ABNORMAL) POC hematocrit (10/26/2024 12:39 AM EDT) Pathologist [facility] POC Hematocrit 23.0(L) 40 - 52 % 10/26/2024 1:38 AM EDT [facility] Blood, Arterial 10/26/2024 1 2:39 AM EDT 10/26/2024 1:38 AM EDT us Semaj Mcnair III, MD POINT OF CARE TEST ORDERABLES Final Result Performing Organization Address City/[facility] Co de Phone Number [facility] [address] [facility] * POC Lactate (10/26/2024 12:39 AM EDT) POC Lactate 1.39 0.50 - 2.20 mmol/L 10/26/2024 1:38 AM EDT [facility] Blood, Arterial 10/26/2024 1 2:39 AM EDT 10/26/2024 1:38 AM EDT us Semaj Mcnair III, MD POINT OF CARE TEST ORDERABLES Final Result Performing Organization Address [facility] Co de Phone Number [facility] [address] [facility] * (ABNORMAL) POC Glucose (10/26/2024 12:39 AM EDT) POC Glucose, Arterial 116(H) 70 - 100 mg/dL 10/26/2024 1:38 AM EDT [facility] Blood, Arterial 10/26/2024 1 2:39 AM EDT 10/26/2024 1:38 AM EDT us Semaj Mcnair III, MD POINT OF CARE TEST ORDERABLES Final Result Performing Organization Address [facility] Co de Phone Number [facility] [address] [facility]. [address] * (ABNORMAL) POC Ionized Calcium (10/26/2024 12:39 AM EDT) Pathologist [facility] POC Ionized Calcium 4.30(L) 4.50 - 5.30 mg/dL 10/26/2024 1:38 AM EDT [facility] Blood, Arterial 10/26/2024 1 2:39 AM EDT 10/26/2024 1:38 AM EDT us Semaj Mcnair III, MD POINT OF CARE TEST ORDERABLES Final Result Performing Organization Address City/[facility] Co de Phone Number [facility] [address] [facility]. [address] * (ABNORMAL) POC Potassium (10/26/2024 12:39 AM EDT) POC Potassium 2.4(LL) 3.5 - 5.3 mmol/L 10/26/2024 1:38 AM EDT [facility] Blood, Arterial 10/26/2024 1 2:39 AM EDT 10/26/2024 1:38 AM EDT us Semaj Mcnair III, MD POINT OF CARE TEST ORDERABLES Final Result Performing Organization Address [facility] Co de Phone Number [facility] [address] * POC Sodium (10/26/2024 12:39 AM EDT) POC Sodium 136 136 - 146 mmol/L 10/26/2024 1:38 AM EDT [facility] Blood, Arterial 10/26/2024 1 2:39 AM EDT 10/26/2024 1:38 AM EDT us Semaj Mcnair III, MD POINT OF CARE TEST ORDERABLES Final Result Performing Organization Address [facility] Co de Phone Number [facility] [address] [facility] * (ABNORMAL) POC TCO2 (10/26/2024 12:39 AM EDT) POC TCO2, Arterial 21(L) 23 - 27 mmol/L 10/26/2024 1:38 AM EDT [facility] Blood, Arterial 10/26/2024 1 2:39 AM EDT 10/26/2024 1:38 AM EDT us Semaj Mcnair III, MD POINT OF CARE TEST ORDERABLES Final Result Performing Organization Address City/[facility] Co de Phone Number [facility] [address] [facility] * POC O2 SAT (10/26/2024 12:39 AM EDT) POC O2 Saturation, Arterial 98 95 - 98 % 10/26/2024 1:38 AM EDT [facility] Blood, Arterial 10/26/2024 1 2:39 AM EDT 10/26/2024 1:38 AM EDT us Semaj Mcnair III, MD POINT OF CARE TEST ORDERABLES Final Result Performing Organization Address City/State/[facility] Co de Phone Number [facility] [address] * (ABNORMAL) POC Base Excess (10/26/2024 12:39 AM EDT) POC Base Excess, Arterial -7(L) -2 - 3 mmol/L 10/26/2024 1:38 AM EDT [facility] Blood, Arterial 10/26/2024 1 2:39 AM EDT 10/26/2024 1:38 AM EDT us Semaj Mcnair III, MD POINT OF CARE TEST ORDERABLES Final Result Performing Organization Address [facility] Co de Phone Number [facility] [address] * (ABNORMAL) POC HCO3 (10/26/2024 12:39 AM EDT) POC HCO3, Arterial 20(L) 22 - 26 mmol/L 10/26/2024 1:38 AM EDT [facility] Blood, Arterial 10/26/2024 1 2:39 AM EDT 10/26/2024 1:38 AM EDT us Semaj Mcnair III, MD POINT OF CARE TEST ORDERABLES Final Result Performing Organization Address [facility] Co de Phone Number [facility] [address] [facility]. [address] * (ABNORMAL) POC PO2 (10/26/2024 12:39 AM EDT) POC pO2, Arterial 117(H) 80 - 100 mm Hg 10/26/2024 1:38 AM EDT [facility] Blood, Arterial 10/26/2024 1 2:39 AM EDT 10/26/2024 1:38 AM EDT us Semaj Mcnair III, MD POINT OF CARE TEST ORDERABLES Final Result [facility] [address] * (ABNORMAL) POC PCO2 (10/26/2024 12:39 AM EDT) POC pCO2, Arterial 46(H) 35 - 45 mm Hg 10/26/2024 1:38 AM EDT [facility] Blood, Arterial 10/26/2024 1 2:39 AM EDT 10/26/2024 1:38 AM EDT Semaj Mcnair III, MD POINT OF CARE TEST ORDERABLES Final Result Performing Organization Address [facility] Co de Phone Number [facility] [address] * (ABNORMAL) POC pH (10/26/2024 12:39 AM EDT) POC pH, Arterial 7.24(L) 7.35 - 7.45 10/26/2024 1:38 AM EDT [facility] Blood, Arterial 10/26/2024 1 2:39 AM EDT 10/26/2024 1:38 AM EDT Semaj Mcnair III, MD POINT OF CARE TEST ORDERABLES Final Result Performing Organization Address [facility] Co de Phone Number [facility] [address] * Transfuse Platelets (10/26/2024 12:37 AM [...] Gram Stain Result Cytospin Results: [facility] Gram Stain Result Polymorphonuclear Leukocytes Seen; [facility] Gram Stain Result No Organisms Seen; [facility] Culture Result No Growth After 3 Days [facility] Surgical Swab ABDOMEN / Unknown 12:03 AM EDT Comment:2.) Ascites Anaerobhic culture Fungus culture Routine culture plus stain Narrative [facility] - 10/28/2024 9:38 PM EDT 2.) Ascites Anaerobhic culture Fungus culture Routine culture plus stain 2.) Ascites Semaj Mcnair III, MD MICROBIOLOGY - GENE RAL ORDERABLES Final Result Performing Organization Address City/State/[facility] Co de Phone Number [facility] [address] * Surgical Pathology Exam (10/26/2024 12:00 AM EDT) 10/26/2024 10/27/2024 Narrative [facility] - 10/26/2024 12:00 AM EDT CASE: [id number] PATIENT: BLAIR GILBERT Clinical History: Liver - kidney transplant Pre-Operative Diagnosis: Alcoholic cirrhosis of liver Post-Operative Diagnosis: Alcoholic cirrhosis of liver Specimen(s) Submitted: [facility] [place] [facility] CPT Code(s): 42504 X 1; 23437 X 5 Additional Information: FINAL DIAGNOSIS: A. 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 - Negative for neoplasm. - Increased hepatocellular iron deposition (3+; Modified Scheuer). Gall bladder: -Intramucosal and submucosal vascular congestion and hemorrhage. - Negative for dysplasia or malignancy. Gross Description: Received in formalin, labeled Blair Gilbert and [place] [facility] , is a 2338-gram, hepatectomy specimen [...] discrete masses or other lesions are identified. Office Asst sections are submitted in cassettes [id number] as follows: A1: Hilar margins, en face. [...] Pathologist signing this report is located at [facility], [address] [place] [address], [place], [place], [facility], , CLIA ID: [id number] us Semaj Mcnair III, MD PATHOLOGY/CYTOLOGY ORDERABLES Final Result [facility] * Transfuse Fresh Frozen Plasma (10/25/2024 11:47 PM EDT) Result [facility] Ben Blake MD NURSING TREATMENT ORDERABLES - BLOOD ADMIN Final Result * Transfuse RBC (10/25/2024 11:45 PM EDT) Result [facility] Ben Blake MD NURSING TREATMENT ORDERABLES - BLOOD ADMIN Final Result * Transfuse RBC (10/25/2024 11:45 PM EDT) Result [facility] Ben Blake MD NURSING TREATMENT ORDERABLES - BLOOD ADMIN Final Result * (ABNORMAL) POC INR (10/25/2024 11:43 PM EDT) Prothrombin Time INR, POC 1.7(H) 0.8 - 1.4 10/27/2024 6:51 AM EDT [facility] Comment: Test results may vary using [...] CARE TEST ORDERABLES Final Result [facility] [address] * POC Sample Type (10/25/2024 11:40 PM EDT) POC Sample Type Arterial 10/25/2024 11:57 PM EDT [facility] Blood, Arterial 10/25/2024 1 1:40 PM EDT 10/25/2024 11:57 PM EDT us Semaj Mcnair III, MD POINT OF CARE TEST ORDERABLES Final Result Performing Organization Address City/[facility]/ZIP Co de Phone Number [facility] [address] * POC Anion Gap (10/25/2024 11:40 PM EDT) POC Anion Gap, Arterial 13 3 - 16 mmol/L 10/25/2024 11:57 PM EDT [facility] Blood, Arterial 10/25/2024 1 1:40 PM EDT 10/25/2024 11:57 PM EDT us Semaj Mcnair III, MD POINT OF CARE TEST ORDERABLES Final Result Performing Organization Address [facility] Co de Phone Number [facility] [address] [facility] * POC Chloride (10/25/2024 11:40 PM EDT) POC Chloride 102 98 - 110 mmol/L 10/25/2024 11:57 PM EDT [facility] Blood, Arterial 10/25/2024 1 1:40 PM EDT 10/25/2024 11:57 PM EDT us Semaj Mcnair III, MD POINT OF CARE TEST ORDERABLES Final Result Performing Organization Address [facility] Co de Phone Number [facility] [address] [facility] * (ABNORMAL) POC Hemoglobin (10/25/2024 11:40 PM EDT) POC Hemoglobin 6.6(L) 14.0 - 18.0 g/dL 10/25/2024 11:57 PM EDT [facility] Blood, Arterial 10/25/2024 1 1:40 PM EDT 10/25/2024 11:57 PM EDT us Semaj Mcnair III, MD POINT OF CARE TEST ORDERABLES Final Result [facility] [address] * (ABNORMAL) POC hematocrit (10/25/2024 11:40 PM EDT) POC Hematocrit 19.0(L) 40 - 52 % 10/25/2024 11:57 PM EDT [facility] Blood, Arterial 10/25/2024 1 1:40 PM EDT 10/25/2024 11:57 PM EDT us Semaj Mcnair III, MD POINT OF CARE TEST ORDERABLES Final Result Performing Organization Address [facility] Co de Phone Number [facility] [address] * POC Lactate (10/25/2024 11:40 PM EDT) POC Lactate 1.36 0.50 - 2.20 mmol/L 10/25/2024 11:57 PM EDT [facility] Blood, Arterial 10/25/2024 1 1:40 PM EDT 10/25/2024 11:57 PM EDT us Semaj Mcnair III, MD POINT OF CARE TEST ORDERABLES Final Result Performing Organization Address [facility] Co de Phone Number [facility] [address] [facility] * (ABNORMAL) POC Glucose (10/25/2024 11:40 PM EDT) POC Glucose, Arterial 101(H) 70 - 100 mg/dL 10/25/2024 11:57 PM EDT [facility] Blood, Arterial 10/25/2024 1 1:40 PM EDT 10/25/2024 11:57 PM EDT us Semaj Mcnair III, MD POINT OF CARE TEST ORDERABLES Final Result Performing Organization Address City/[facility]/ZIP Co de Phone Number [facility] [address] * POC Ionized Calcium (10/25/2024 11:40 PM EDT) POC Ionized Calcium 4.50 4.50 - 5.30 mg/dL 10/25/2024 11:57 PM EDT [facility] Blood, Arterial 10/25/2024 1 1:40 PM EDT 10/25/2024 11:57 PM EDT us Semaj Mcnair III, MD POINT OF CARE TEST ORDERABLES Final Result [facility] [address] * (ABNORMAL) POC Potassium (10/25/2024 11:40 PM EDT) POC Potassium 1.9(LL) 3.5 - 5.3 mmol/L 10/25/2024 11:57 PM EDT [facility] Blood, Arterial 10/25/2024 1 1:40 PM EDT 10/25/2024 11:57 PM EDT us Semaj Mcnair III, MD POINT OF CARE TEST ORDERABLES Final Result Performing Organization Address City/[facility]/ZIP Co de Phone Number [facility] [address] * (ABNORMAL) POC Sodium (10/25/2024 11:40 PM EDT) POC Sodium 135(L) 136 - 146 mmol/L 10/25/2024 11:57 PM EDT [facility] Blood, Arterial 10/25/2024 1 1:40 PM EDT 10/25/2024 11:57 PM EDT us Semaj Mcnair III, MD POINT OF CARE TEST ORDERABLES Final Result [facility] [address] * (ABNORMAL) POC TCO2 (10/25/2024 11:40 PM EDT) POC TCO2, Arterial 21(L) 23 - 27 mmol/L 10/25/2024 11:57 PM EDT [facility] Blood, Arterial 10/25/2024 1 1:40 PM EDT 10/25/2024 11:57 PM EDT us Semaj Mcnair III, MD POINT OF CARE TEST ORDERABLES Final Result [facility] [address] * POC O2 SAT (10/25/2024 11:40 PM EDT) POC O2 Saturation, Arterial 98 95 - 98 % 10/25/2024 11:57 PM EDT [facility] Blood, Arterial 10/25/2024 1 1:40 PM EDT 10/25/2024 11:57 PM EDT us Semaj Mcnair III, MD POINT OF CARE TEST ORDERABLES Final Result [facility] [address] * (ABNORMAL) POC Base Excess (10/25/2024 11:40 PM EDT) POC Base Excess, Arterial -6(L) -2 - 3 mmol/L 10/25/2024 11:57 PM EDT [facility] Blood, Arterial 10/25/2024 1 1:40 PM EDT 10/25/2024 11:57 PM EDT Semaj Mcnair III, MD POINT OF CARE TEST ORDERABLES Final Result [facility] [address] * (ABNORMAL) POC HCO3 (10/25/2024 11:40 PM EDT) POC HCO3, Arterial 20(L) 22 - 26 mmol/L 10/25/2024 11:57 PM EDT [facility] Blood, Arterial 10/25/2024 1 1:40 PM EDT 10/25/2024 11:57 PM EDT Semaj Mcnair III, MD POINT OF CARE TEST ORDERABLES Final Result [facility] [address] [facility] * (ABNORMAL) POC PO2 (10/25/2024 11:40 PM EDT) POC pO2, Arterial 107(H) 80 - 100 mm Hg 10/25/2024 11:57 PM EDT [facility] Blood, Arterial 10/25/2024 1 1:40 PM EDT 10/25/2024 11:57 PM EDT Semaj Mcnair III, MD POINT OF CARE TEST ORDERABLES Final Result [facility] [address] [facility] * POC PCO2 (10/25/2024 11:40 PM EDT) POC pCO2, Arterial 41 35 - 45 mm Hg 10/25/2024 11:57 PM EDT [facility] Blood, Arterial 10/25/2024 1 1:40 PM EDT 10/25/2024 11:57 PM EDT Semaj Mcnair III, MD POINT OF CARE TEST ORDERABLES Final Result [facility] [address] * (ABNORMAL) POC pH (10/25/2024 11:40 PM EDT) POC pH, Arterial 7.29(L) 7.35 - 7.45 10/25/2024 11:57 PM EDT [facility] Blood, Arterial 10/25/2024 1 1:40 PM EDT 10/25/2024 11:57 PM EDT us Semaj Mcnair III, MD POINT OF CARE TEST ORDERABLES Final Result Performing Organization Address City/[facility]/ZIP Co de Phone Number [facility] [address] [facility]. [address] * Urine culture (10/25/2024 11:08 PM EDT) Culture Result <1,000 cfu/mL [facility] Culture Result Skin/Urogeni rony Mckayla. No Further Workup. [facility] Newly Placed Berkowitz Urine URINE SPECIMEN / Unknown 10/25/2024 11:08 PM EDT Comment:urine culture Narrative [facility] - 10/28/2024 9:59 AM EDT urine culture urine culture us Semaj Mcnair III, MD MICROBIOLOGY - GENE RAL ORDERABLES Final Result Performing Organization Address [facility] Co de Phone Number [facility] [address] [facility]. [address] * X-ray Portable Chest (10/25/2024 10:19 [...] mmol/L 10/25/2024 10:39 PM EDT [facility] Plasma 10/25/2024 10:1 7 PM EDT 10/25/2024 10:17 PM EDT Ben Blake MD LAB BLOOD ORDERABLES Final Re sult [facility] [address] * (ABNORMAL) Ferritin (10/25/2024 10:17 PM EDT) Ferritin 623.2(H) 23.9 - 336.2 ng/mL 10/25/2024 11:02 PM EDT [facility] Serum 10/25/2024 10:1 7 PM EDT 10/25/2024 10:17 PM EDT Leandra Og MD LAB BLOOD ORDERABLES F inal Result [facility] [address] [facility]. [address] * Iron Studies (Iron + TIBC) (10/25/2024 10:17 PM EDT) Iron 128 50 - 212 ug/dL 10/25/2024 10:44 PM EDT [facility] % Iron Saturation SEE COMMENT 15.0 - 55.0 % 10/25/2024 10:44 PM EDT [facility] Comment:Unable to calculate result because contributing result outside reportable range.. TIBC SEE COMMENT 261 - 462 ug/dL 10/25/2024 10:44 PM EDT [facility] Comment:Unable to calculate result because contributing result outside reportable range.. Serum 10/25/2024 10:1 7 PM EDT 10/25/2024 10:17 PM EDT Leandra Og MD LAB BLOOD ORDERABLES F inal Result [facility] [address] [facility]. [address] * PTH (10/25/2024 10:17 PM EDT) PTH 36.0 12.0 - 88.0 pg/mL 10/25/2024 11:01 PM EDT [facility] Serum 10/25/2024 10:1 7 PM EDT 10/25/2024 10:17 PM EDT Leandra Og MD LAB BLOOD ORDERABLES F inal Result [facility] [address] [facility]. [address] * HIV 1+2 Antibody/Antigen with Reflex (10/25/2024 10:17 PM EDT) HIV 1+2 AB/AGN Nonreactive Nonreactive 10/25/2024 11:03 PM EDT [facility] Serum 10/25/2024 10:1 7 PM EDT 10/25/2024 10:16 PM EDT Narrative [facility] - 10/25/2024 11:03 PM EDT \HIVRNR Leandra Og MD LAB BLOOD ORDERABLES F inal Result Performing Organization Address City/[facility]/ZIP Co de Phone Number [facility] [address] [facility]. [address] * Hepatitis B Core Antibody (10/25/2024 10:17 PM EDT) Pathologist [facility] Hep B Core Total Ab Nonreactive Nonreactive 10/25/2024 11:07 PM EDT [facility] Comment:Health Department no tified in accordance with reportable infectious disease guidelines. Serum 10/25/2024 10:1 7 PM EDT 10/25/2024 10:17 PM EDT Narrative [facility] - 10/25/2024 11:07 PM EDT A nonreactive final interpretation indicates that anti-HBc antibodies were not detected in the sample; it is possible that the individual is not infected with HBV. Leandra Og MD LAB BLOOD ORDERABLES F inal Result [facility] [address] [facility]. [address] * Hepatitis C Antibody (10/25/2024 10:17 PM EDT) HCV Ab Nonreactive Nonreactive 10/25/2024 11:16 PM EDT [facility] Comment:Health Department no tified in accordance with reportable infectious disease guidelines. Serum 10/25/2024 10:1 7 PM EDT 10/25/2024 10:17 PM EDT Narrative [facility] - 10/25/2024 11:16 PM EDT Antibodies to HCV not detected; does not exclude the possibility of exposure to HCV. us Leandra Og MD LAB BLOOD ORDERABLES F inal Result Performing Organization Address City/[facility]/ZIP Co de Phone Number [facility] [address] [facility]. [address] * (ABNORMAL) Hepatitis B Surface Antibody, Quantitati (10/25/2024 10:17 PM EDT) HBSAB NUMBER 10.70(H) 0.00 - 9.99 mIU/mL 10/25/2024 11:52 PM EDT [facility] Hep B S Ab Equivocal (A) Nonreactive 10/25/2024 11:52 PM EDT [facility] Serum 10/25/2024 10:1 7 PM EDT 10/25/2024 10:17 PM EDT us Leandra Og MD LAB BLOOD ORDERABLES F inal Result Performing Organization Address City/[facility]/ZIP Co de Phone Number [facility] [address] [facility]. [address] * Hepatitis B surface antigen (10/25/2024 10:17 PM EDT) Hep B Surface Ag Nonreactive Nonreactive 10/25/2024 11:12 PM EDT [facility] Comment:Health Department no tified in accordance with reportable infectious disease guidelines. Serum 10/25/2024 10:1 7 PM EDT 10/25/2024 10:17 PM EDT Narrative [facility] - 10/25/2024 11:12 PM EDT Specimen is considered negative for HBsAg. us Leandra Og MD LAB BLOOD ORDERABLES F inal Result Performing Organization Address City/[facility]/ZIP Co de Phone Number [facility] [address] * Hepatitis A Antibody Total (10/25/2024 10:17 PM EDT) Anti-HAV Total (IgG + IgM) Nonreactive 10/25/2024 11:13 PM EDT [facility] Serum 10/25/2024 10:1 7 PM EDT 10/25/2024 10:17 PM EDT Narrative [facility] - 10/25/2024 11:13 PM EDT HAV antibodies not detected Leandra Og MD LAB BLOOD ORDERABLES F inal Result Performing Organization Address [facility] Co de Phone Number [facility] [address] [facility]. [address] * (ABNORMAL) Hepatic Function Panel (10/25/2024 10:17 PM EDT) Total Bilirubin 9.1(H) 0.0 - 1.5 mg/dL 10/25/2024 10:47 PM EDT [facility] Bilirubin, Direct 4.58(H) 0.00 - 0.40 mg/dL 10/25/2024 10:47 PM EDT [facility] AST 51(H) 13 - 39 U/L 10/25/2024 10:47 PM EDT [facility] ALT 23 7 - 52 U/L 10/25/2024 10:47 PM EDT [facility] Alkaline Phosphatase 144(H) 36 - 125 U/L 10/25/2024 10:47 PM EDT [facility] Total Protein 5.5(L) 6.4 - 8.9 g/dL 10/25/2024 10:47 PM EDT [facility] Albumin 3.5 3.5 - 5.7 g/dL 10/25/2024 10:47 PM EDT [facility] Bilirubin, Indirect 4.52(H) 0.00 - 1.10 mg/dL 10/25/2024 10:47 PM EDT [facility] Plasma 10/25/2024 10:1 7 PM EDT 10/25/2024 10:17 PM EDT us Leandra Og MD LAB BLOOD ORDERABLES F inal Result [facility] [address] * (ABNORMAL) Renal Function Panel w/EGFR (10/25/2024 10:17 PM EDT) Sodium 137 133 - 146 mmol/L 10/25/2024 10:47 PM EDT [facility] Potassium 2.1(LL) 3.5 - 5.3 mmol/L 10/25/2024 10:47 PM EDT [facility] Comment:Critical Result K:2. 1 Called to and read back by: ALICIA CARCAMO RN at: 10/25/2024 22:47:45 by:NANCY Chloride 100 98 - 110 mmol/L 10/25/2024 10:47 PM EDT [facility] CO2 20(L) 21 - 33 mmol/L 10/25/2024 10:47 PM EDT [facility] Anion Gap 17(H) 3 - 16 mmol/L 10/25/2024 10:47 PM EDT [facility] BUN 74(H) 7 - 25 mg/dL 10/25/2024 10:47 PM EDT [facility] Creatinine 3.87(H) 0.60 - 1.30 mg/dL 10/25/2024 10:47 PM EDT [facility] Glucose 114(H) 70 - 100 mg/dL 10/25/2024 10:47 PM EDT [facility] Calcium 9.3 8.6 - 10.3 mg/dL 10/25/2024 10:47 PM EDT [facility] Phosphorus 5.9(H) 2.1 - 4.7 mg/dL 10/25/2024 10:47 PM EDT [facility] Albumin 3.5 3.5 - 5.7 g/dL 10/25/2024 10:47 PM EDT [facility] Osmolality, Calculated 307(H) 278 - 305 mOsm/kg 10/25/2024 10:47 PM EDT [facility] EGFR 19 10/25/2024 10:47 PM EDT [facility] Comment:As of 2021, the estimated GFR [...] ORDERABLES F inal Result Performing Organization Address City/[facility]/ZIP Co de Phone Number [facility] [address] [facility]. [address] * (ABNORMAL) APTT, NO ANTICOAGULANT (10/25/2024 10:17 PM EDT) Pathologist [facility] aPTT 41.7(H) 25.5 - 35.0 seconds 10/25/2024 10:36 PM EDT [facility] Plasma 10/25/2024 10:1 7 PM EDT 10/25/2024 10:17 PM EDT Leandra Og MD LAB BLOOD ORDERABLES F inal Result [facility] [address] [facility]. [address] * (ABNORMAL) Protime-INR (10/25/2024 10:17 PM EDT) Protime 21.7(H) 12.1 - 15.1 seconds 10/25/2024 10:35 PM EDT [facility] INR 1.8(H) 0.9 - 1.1 10/25/2024 10:35 PM EDT [facility] Comment: RECOMMENDED THERAPEUTIC RANGES USING INR : Stable oral anticoagulant therapy: 2.0 - 3.0 Mechanical prosthetic heart valve: 2.5 - 3.5 Recurrent acute myocardial infarction: 2.5 - 3.5 Plasma 10/25/2024 10:1 7 PM EDT 10/25/2024 10:17 PM EDT us Leandra Og MD LAB BLOOD ORDERABLES F inal Result [facility] [address] * (ABNORMAL) Differential (10/25/2024 10:17 PM EDT) [facility] Differential Comments See Note 10/25/2024 10:54 PM EDT [facility] Comment: _Platelets Appear Decreased _Platelet Morphology Normal Scan Result PERFORMED 10/25/2024 10:54 PM EDT [facility] Neutrophils Relative 79.8 40.0 - 80.0 % 10/25/2024 10:54 PM EDT [facility] Lymphocytes Relative 9.6(L) 15.0 - 45.0 % 10/25/2024 10:54 PM EDT [facility] Monocytes Relative 8.9 0.0 - 12.0 % 10/25/2024 10:54 PM EDT [facility] Eosinophils Relative 1.3 0.0 - 8.0 % 10/25/2024 10:54 PM EDT [facility] Basophils Relative 0.4 0.0 - 1.0 % 10/25/2024 10:54 PM EDT [facility] nRBC 0 0 - 0 /100 WBC 10/25/2024 10:54 PM EDT [facility] Neutrophils Absolute 4,948 1,520 - 8,640 /uL 10/25/2024 10:54 PM EDT [facility] Lymphocytes Absolute 595 570 - 4,860 /uL 10/25/2024 10:54 PM EDT [facility] Monocytes Absolute 552 0 - 1,296 /uL 10/25/2024 10:54 PM EDT [facility] Eosinophils Absolute 81 0 - 864 /uL 10/25/2024 10:54 PM EDT [facility] Basophils Absolute 25 0 - 108 /uL 10/25/2024 10:54 PM EDT [facility] PLT Morphology Platelet morphology appears normal 10/25/2024 10:54 PM EDT [facility] Whole Blood 10/25/2024 10:1 7 PM EDT 10/25/2024 10:17 PM EDT us Leandra Og MD LAB BLOOD ORDERABLES F inal Result [facility] [address] [facility] [place] [address], [facility] * (ABNORMAL) CBC (10/25/2024 10:17 PM EDT) WBC 6.2 3.8 - 10.8 10E3/uL 10/25/2024 10:54 PM EDT [facility] RBC 2.40(L) 4.20 - 5.80 10E6/uL 10/25/2024 10:54 PM EDT [facility] Hemoglobin 8.3(L) 13.2 - 17.1 g/dL 10/25/2024 10:54 PM EDT [facility] Hematocrit 23.7(L) 38.5 - 50.0 % 10/25/2024 10:54 PM EDT [facility] MCV 98.9 80.0 - 100.0 fL 10/25/2024 10:54 PM EDT [facility] MCH 34.6(H) 27.0 - 33.0 pg 10/25/2024 10:54 PM EDT [facility] MCHC 35.0 32.0 - 36.0 g/dL 10/25/2024 10:54 PM EDT [facility] RDW 17.8(H) 11.0 - 15.0 % 10/25/2024 10:54 PM EDT [facility] Platelets 56(L) 140 - 400 10E3/uL 10/25/2024 10:54 PM EDT [facility] Comment: Specimen checked for clots. None detected. Slide Reviewed for PLT Clumps. None Seen. Platelet Estimate Decreased 10/25/2024 10:54 PM EDT [facility] MPV 8.1 7.5 - 11.5 fL 10/25/2024 10:54 PM EDT [facility] Whole Blood 10/25/2024 10:1 7 PM EDT 10/25/2024 10:17 PM EDT Narrative [facility] - 10/25/2024 10:54 PM EDT Peripheral blood smear was scanned per review criteria approved by the laboratory senior medical director. Leandra Og MD LAB BLOOD ORDERABLES F inal Result [address] * Donor Specific Antibody (DSA) (10/25/2024 10:00 PM EDT) Pathologist [facility] AntiDonor Antibodies The request and specimen(s) for this test have been received and transported to the [facility] at [address] [place] [address]. The [facility] will report results directly to the client. 10/25/2024 10:20 PM EDT [facility] Comment:Testing performed by [facility], [address] [place] [address]. The [facility] report has been forwarded to the appropriate ordering location. Please refer to this report for patient results. Serum 10/25/2024 10:0 0 PM EDT 10/25/2024 10:20 PM EDT us Leandra Og MD LAB BLOOD ORDERABLES F inal Result [address] * (ABNORMAL) Venous Blood Gas, Line/Syringe (10/25/2024 10:00 PM EDT) PH-Line Draw 7.38 7.32 - 7.42 10/25/2024 10:08 PM EDT [facility] PCO2-Line Draw 33(L) 41 - 51 mm Hg 10/25/2024 10:08 PM EDT [facility] PO2-Line Draw 33 25 - 40 mm Hg 10/25/2024 10:08 PM EDT [facility] HCO3-Line Draw 20(L) 24 - 28 mmol/L 10/25/2024 10:08 PM EDT [facility] CO2 Content-Line Draw 21(L) 25 - 29 mmol/L 10/25/2024 10:08 PM EDT [facility] Base Excess-Line Draw -5.0(L) -2.0 - 3.0 mmol/L 10/25/2024 10:08 PM EDT [facility] %HBO2-Line Draw 53.8 40.0 - 70.0 % 10/25/2024 10:08 PM EDT [facility] Carboxyhgb-Ludivina e Draw 1.9 % 10/25/2024 10:08 PM EDT [facility] Comment: CARBOXYHEMOGLOBIN (CO) REFERENCE RANGES: Non-Smokers: <2 % Smokers: <8 % TOXIC: >20 % Methemoglobin- Line Draw 0.2 0.0 - 1.5 % 10/25/2024 10:08 PM EDT [facility] Reduced Hemoglobin-Ludivina e Draw 44.1(H) 0.0 - 5.0 % 10/25/2024 10:08 PM EDT [facility] Venous, Line Draw 10/25/2024 10:00 PM EDT 10/25/2024 10:04 PM EDT us Leandra Og MD LAB BLOOD ORDERABLES F inal Result [facility] [address] [id number], [facility] * (ABNORMAL) POC Glucose Monitoring Device (10/25/2024 9:56 PM EDT) POC Glucose Monitoring Device 103(H) 70 - 100 mg/dL 10/25/2024 9:58 PM EDT [facility] Blood 10/25/2024 9:5 6 PM EDT 10/25/2024 9:57 PM EDT Semaj Mcnair III, MD POINT OF CARE TEST ORDERABLES Final Result [facility] [address] * ECG 12 lead (MUSE) (10/25/2024 9:34 PM EDT) 10/25/2024 9:34 PM EDT Narrative MUSE - 10/27/2024 10:08 AM EDT Ventricular Rate: 97 BPM Atrial Rate: 86 BPM QRS Duration: 106 ms QT: 532 ms QTc: 675 ms P [place]: 38 degrees R Yuma: -29 degrees T [place]uma: 32 degrees Diagnosis Line: Critical Test Result: Long QTc , AV Block ^ SINUS RHYTHM WITH PREMATURE VENTRICULAR COMPLEXES ^ PROLONGED QT ^ NONSPECIFIC ST AND T WAVE CHANGES ^ ABNORMAL ECG ^ ^ Confirmed by MD HA, [facility] ([facility]) on 10/27/2024 10:08:26 AM Leandra Og MD ECG ORDERABLES Final Result Performing Organization Address City/[facility] Co de Phone Number MUSE * Hepatitis C RNA, Quant Reflex to Genotyp (10/25/2024 8:18 PM EDT) International Units Not Detected IU/mL 10/27/2024 11:03 AM EDT [facility] Comment:Test methodology for HCV RNA quantification is an FDA-approved nucleic acid amplification assay. The Lower Limit of Quantitation (LLOQ) is 15 IU/mL. The linear range of the assay is 15-100,000,000 IU/mL. The Limit of Detection (LoD) is 12.0 IU/mL for EDTA plasma. The reference range is Not Detected. IU log10 See Note log 10 IU/mL 10/27/2024 11:03 AM EDT [facility] Comment:HCV RNA not detected . Plasma 10/25/2024 8:18 PM EDT 10/25/2024 10:27 PM EDT Leandra Og MD LAB BLOOD ORDERABLES F inal Result [facility] [address] * Urinalysis w/Rfl to Microscopic (10/25/2024 8:18 PM EDT) Color, UA Yellow Yellow,Straw 10/25/2024 10:38 PM EDT [facility] Clarity, UA Clear Clear 10/25/2024 10:38 PM EDT [facility] Specific Terrell, UA 1.010 1.005 - 1.035 10/25/2024 10:38 PM EDT [facility] pH, UA 6.0 5.0 - 8.0 10/25/2024 10:38 PM EDT [facility] Protein, UA Negative Negative mg/dL 10/25/2024 10:38 PM EDT [facility] Glucose, UA Negative Negative mg/dL 10/25/2024 10:38 PM EDT [facility] Ketones, UA Negative Negative mg/dL 10/25/2024 10:38 PM EDT [facility] Bilirubin, UA Negative Negative 10/25/2024 10:38 PM EDT [facility] Blood, UA Negative Negative 10/25/2024 10:38 PM EDT [facility] Nitrite, UA Negative Negative 10/25/2024 10:38 PM EDT [facility] Urobilinogen, UA <2.0 0.2 - 1.9 mg/dL 10/25/2024 10:38 PM EDT [facility] Leukocyte Esterase, UA Negative Negative 10/25/2024 10:38 PM EDT [facility] Urine 10/25/2024 8:18 PM EDT 10/25/2024 10:35 PM EDT Narrative [facility] - 10/25/2024 10:38 PM EDT Microscopic testing is not performed when the dipstick is negative for blood, leukocyte, protein and nitrite. Leandra Og MD URINE ORDERABLES Final Result [facility] [address] * Toxoplasma gondii antibody, IgG (10/25/2024 8:18 PM EDT) Toxoplasma Gondii IgG <3.0 0.0 - 7.1 IU/mL 10/27/2024 7:55 AM EDT [facility] Comment: Negative <7.2 Equivocal 7.2 - 8.7 Positive >8.7 Serum 10/25/2024 8:18 PM EDT 10/27/2024 8:06 AM EDT [facility] - 10/27/2024 8:06 AM EDT PERFORMED AT: [facility] [phone] [employer]CRETE [employer] OPERATOR HELPER: Bassam Khalil, PhD PHONE: [phone] Leandra Og MD LAB BLOOD ORDERABLES F inal Result [address] * Antibody Screen (10/25/2024 7:46 PM EDT) Antibody Screen Negative 10/25/2024 10:41 PM EDT [facility] Blood 10/25/2024 7:46 PM EDT 10/25/2024 9:54 PM EDT [facility] - 10/25/2024 10:44 PM EDT Testing performed by [facility] Ben Blake MD BLOOD BANK TEST ORDERABLES Fi nal Result [facility] [address] [place] [address]. [address] * ABO/Rh (10/25/2024 7:46 PM EDT) ABO Grouping O 10/25/2024 10:23 PM EDT [facility] Rh Type Positive 10/25/2024 10:23 PM EDT [facility] Blood 10/25/2024 7:46 PM EDT 10/25/2024 9:54 PM EDT us Ben Blake MD BLOOD BANK TEST ORDERABLES Fi nal Result [facility] [address] [place] [address], [facility] * (ABNORMAL) TEG-Standard Global Hemostasis (Rapid TEG with Heparin Effect, Contains a Baseline TEG) (10/25/2024 7:46 PM EDT) [facility] Citrated Kaolin Reaction Time (TEGHEPARINASE) 8.4 4.6 - 9.1 minutes 10/25/2024 10:49 PM EDT [facility] Citrated Rapid Teg Maximum Amplitude (TEGHEPARINASE) <40.0(L) 52.0 - 70.0 mm 10/25/2024 10:49 PM EDT [facility] Citrated Functional Fibrinogen Maximum Amplitude (TEGHEPARINASE) 6.7(L) 15.0 - 32.0 mm 10/25/2024 10:49 PM EDT [facility] Citrated Kaolin W/Heparinase Reaction Time (TEGHEPARINASE) 8.1 4.3 - 8.3 minutes 10/25/2024 10:49 PM EDT [facility] Citrated Kaolin K-Time (TEGHEPARINASE) 2.5(A) 0.8 - 2.1 minutes 10/25/2024 10:49 PM EDT [facility] Citrated Kaolin Angle (TEGHEPARINASE) 65.7(A) 63.0 - 78.0 degrees 10/25/2024 10:49 PM EDT [facility] Citrated Kaolin Maximum Amplitude (TEGHEPARINASE) <40.0(L) 52.0 - 69.0 mm 10/25/2024 10:49 PM EDT [facility] Citrated Functional Fibrinogen- Fibrinogen Level (TEGHEPARINASE) 159.5(L) 278.0 - 581.0 mg/dL 10/25/2024 10:49 PM EDT [facility] Whole Blood (Citrate) 10/25/2024 7:46 PM EDT 10/25/2024 10:15 PM EDT us Ben Blake MD LAB BLOOD ORDERABLES Final Re sult [facility] [address] [place] [address], [facility] documented in this encounter [...] Given 11/01/2024 9:19 PM EDT 975 mg bisacodyL (DULCOLAX) suppository 10 mg 10 mg, Rectal, Daily as needed, Constipation, Starting on Sun10/29/24 at 0936 Given 10/30/2024 9:48 AM EDT 10 mg dextrose 10%-water (D10W) IV soln 12.5 g, [...] grams or 250 mL for 25 grams. eye ointment ophth oint Both Eyes, 2 times daily, First dose on Sun10/26/24 at 1230 Given 10/31/2024 10:29 AM EDT Given 10/27/2024 8:46 PM EDT Given 10/27/2024 8:54 AM EDT fluconazole (DIFLUCAN) tablet 200 mg 200 mg, [...] Given 10/31/2024 8:52 AM EDT 20 mg gabapentin (NEURONTIN) capsule 100 mg 100 mg, Oral, 3 times daily, First dose on Sun10/31/24 at 0900 Given 11/02/2024 3:31 PM EDT 100 mg Given 11/02/2024 11:49 AM EDT 100 mg Given 11/01/2024 9:20 PM EDT 100 mg heparin (porcine) 5,000 unit/mL 10,000 Units in sodium chloride 0.9 % 1,000 mL IV infusion As needed, Starting on 10/25/24 at 2127, Intra-op Given 10/26/2024 12:05 AM EDT 10,000 Units Other heparin (porcine) injection 5,000 Units 5,000 Units, Subcutaneous, Every 8 hours scheduled (3 times per day), First dose on Sun10/26/24 at 0600 Given 11/02/2024 5:43 AM EDT 5,000 Units Abdominal Tissue Given 11/01/2024 9:19 PM EDT 5,000 Units A bdominal Tissue Given 11/01/2024 1:45 PM EDT 5,000 Units L eft Arm HYDROmorphone (DILAUDID) tablet 2 mg 2 mg, Oral, Every 4 hours PRN, severe pain (NRS 7-10) or if patient is non-communicative (CPOT 6-8), Starting on Sun10/31/24 at 0920 Given 11/02/2024 12:19 PM EDT 2 mg Given 11/02/2024 5:43 AM EDT 2 mg Given 11/02/2024 1:23 AM EDT 2 mg insulin lispro (humaLOG/ADMELOG) injection 0-10 Units 0-10 [...] PM EDT 7 Units Ri ght Arm levothyroxine (SYNTHROID) tablet 75 mcg 75 mcg, [...] Given 10/31/2024 8:51 AM EDT 10 mg melatonin tablet Tab 6 mg 6 mg, Oral, At Bedtime (2099), First dose on Sun10/28/24 at 2100, FOR INSOMNIA Given 10/30/2024 8:56 PM EDT 6 mg Given 10/29/2024 8:01 PM EDT 6 mg methocarbamoL (ROBAXIN) tablet 1,000 mg 1,000 mg, Oral, 4 times a day, First dose on Sun10/28/24 at 0900 Given 11/02/2024 5:59 PM EDT 1,000 mg Given 11/02/2024 11:41 AM EDT 1,000 mg Given 11/01/2024 9:19 PM EDT 1,000 mg mycophenolate (CELLCEPT) capsule [...] Given 10/31/2024 6:43 PM EDT 30 mg ondansetron (ZOFRAN) injection 4 mg 4 mg, Intravenous, Every 6 hours PRN, Nausea and/or Vomiting, Starting on Sun10/29/24 at 2103 Given 10/29/2024 8:51 PM EDT 4 mg pantoprazole (PROTONIX) EC tablet 40 mg 40 mg, Oral, Daily6, First dose on Sun10/28/24 at 0930, Do Not Crush Given 11/02/2024 5:43 AM EDT 40 mg Given 11/01/2024 6:14 AM EDT 40 mg Given 10/31/2024 6:14 AM EDT 40 mg polyethylene glycol (MIRALAX) packet 17 g 17 g, Oral, 2 times daily, First dose on Sun10/29/24 at 1400, On hold since 11/02/2024 at 0634 until manually unheld Given 11/01/2024 10:18 AM EDT 17 g Given 10/31/2024 8:52 AM EDT 17 g Given 10/30/2024 8:58 PM EDT 17 g predniSONE (DELTASONE) tablet 20 mg 20 mg, Oral, Daily, First dose on Sun11/03/24 at 0900, Start daily PO dose on POD #8 senna-docusate (SENNA-S) 8.6-50 mg per tablet 1 tablet 1 tablet, Oral, 2 times daily, First dose on Sun10/29/24 at 1400 Given 11/02/2024 11:42 AM EDT 1 tablet Given 11/01/2024 9:20 PM EDT 1 tablet Given 11/01/2024 10:19 AM EDT 1 tablet sodium bicarbonate tablet 1,300 mg 1,300 mg, Oral, 3 times daily, First dose on Sun10/31/24 at 1300 Given 11/02/2024 3:31 PM EDT 1,300 mg Given 11/02/2024 11:41 AM EDT 1,300 mg Given 11/01/2024 9:19 PM EDT 1,300 mg sodium chloride 0.9 % irrigation As needed, Starting on 10/25/24 at 2129, Intra-op Given 10/25/2024 9:29 PM EDT 2,000 mLs sterile water irrigation As needed, Starting on 10/25/24 at 2128, Intra-op Given 10/25/2024 9:28 PM EDT 2,000 mLs sulfamethoxazole-trimethoprim (BACTRIM) 400-80 mg per tablet 1 tablet 1 tablet, Oral, Daily, First dose on Sun10/29/24 at 0900 Given 11/02/2024 11:41 AM EDT 1 tablet Given 11/01/2024 10:21 AM EDT 1 tablet Given 10/31/2024 8:51 AM EDT 1 tablet tacrolimus (PROGRAF) capsule 6 mg 6 mg, [...] Given 10/31/2024 8:52 AM EDT 450 mg documented in this encounter Active and Recently Administered Medications Times are shown in EDT. Scheduled Medication Order 10/31/2024 11/01/2024 11/02/2024 acetaminophen (TYLENOL) tablet 975 mg 975 mg, Oral, Every 8 hours, First dose on Sun10/28/24 at 1200 0614 (Given - Provider: Vandana Vilchis RN)1255 (Given - Provider: Paulette Flannery RN)2056 (Given - Provider: Yvonne Gale RN) 0620 (Given - Provider: Yvonne Gale, RN)1017 (Given - Provider: Paulette Flannery RN)2119 (Given - Provider: Yvonne Gale RN) 0543 (Given - Provider: Yvonne Gale RN)1219 (Given - Provider: Paulette Flannery, ЮЛИЯ) albumin human 25% (COMPLETED) 50 mL, Intravenous, Every 30 min, First dose on Sun10/31/24 at 2100, For 2 doses, In Emergencies, may administer as rapidly as needed to improve clinical status., Select indication for use: Hepatic Resection/Liver Transplantation, at 100 mL/hr 205 (New Bag - Provider: Yvonne Gale RN)2143 (New Bag - Provider: Yvonne Gale RN) [...] Flannery RN)1433 (Given - Provider: Paulette Flannery RN)2056 (Given - Provider: Yvonne Gale RN) 1021 (Given - Provider: Paulette Flannery RN)1344 (Given - Provider: Paulette Flannery RN)212 (Given - Provider: Yvonne Gale, ЮЛИЯ) 1149 (Given - Provider: Paulette Flannery RN)1531 (Given - Provider: Meka Montalvo RN) heparin (porcine) injection 5,000 Units 5,000 Units, Subcutaneous, Every 8 hours scheduled (3 times per day), First dose on Sun10/26/24 at 0600 0614 (Given - Provider: Vandana Vilchis RN)1255 (Given - Provider: Paulette Flannery RN)2055 (Given - Provider: Yvonne Gale, ЮЛИЯ) 0614 [...] parameters not met)1843 (Given - Provider: Vivi Newton, ЮЛИЯ) 1022 (Given - Provider: Paulette Flannery RN)1313 [...] Vivi Newton, ЮЛИЯ)2340 (Given - Provider: Yvonne Gale RN - Comment: given at 1843) 1018 (Given - Provider: Paulette Flannery RN)1344 (Given - Provider: Paulette Flannery RN)1714 (Given - Provider: Paulette Flannery RN)2119 (Given [...] 1843 (Given - Provider: Vivi Newton RN) 101 (Given - Provider: Paulette Flannery RN) 114 [...] CRUSH or CHEW; TABLET(S) MAY BE SPLIT 2120 (Given - Provider: Yvonne Gale RN) potassium [...] CRUSH or CHEW; TABLET(S) MAY BE SPLIT 1901 (Given - Provider: Paulette Flannery RN) predniSONE [...] Group 3) 30 mg, Oral, Once, On Sun11/01/24 at [...] Provider: Paulette Flannery RN)2118 (Given - Provider: vYonne Gale RN) sodium bicarbonate tablet 1,300 mg [...] Newton, ЮЛИЯ) 0649 (Given - Provider: Yvonne Gale RN) [...] Flannery, ЮЛИЯ)1714 (Given - Provider: Paulette Flannery, RN)2120 (Given - Provider: Yvonne Gale, ЮЛИЯ) 0123 (Given - Provider: Yvonne Gale, ЮЛИЯ)0543 (Given - Provider: Yvonne Gale, ЮЛИЯ)1219 (Given [...] to med 40 mEq, Oral, Once, On 11/01/24 at [...] as of this encounter Care Teams Sales Account Manager Relationship Specialty Start Date End Date Enedina Mcguire NP [address] [place] [id number] PCP - General Internal Medicine 10/05/24 documented as of this encounter
--- OUTSIDE RECORDS SUMMARY | 2024-10-25 22:54 | XMS_ITS | Encounter Summary ---
Author Organization [facility] Address [facility] [place] [address] Care Team Providers Care [employer] Cake Decorator Name Role Phone Enedina Mcguire NP Primary Care Provider [phone] Source Comments This information has been disclosed [...] release of HIV test results or diagnoses. [id number] Reason for Visit * Auth/Cert (Routine) Specialty Diagnoses / Procedures Referred By Shane t Referred To Contact Surgical Intensive Care Diagnoses Liver transplant recipient (CMS-HCC) cirrhosis and CKD Procedures LIVER-KIDNEY TRANSPLANT [facility] S[facility] [address] [place] [address] Phone: tel: Referral ID Status Reason Start Date Expiration Date Visits Re quested Visits Authorized [id number] 1 1 Encounter Details Date Type Department Care Team (Late st Contact Info) Description 10/25/2024 10:54 PM EDT Anesthesia Event [facility] [address] [place] [address] Eber Quinones MD [address] [place] [address] Maureen Fleming MD [address] [place] [address] Anesthesia Record Procedure Summary Procedure Name Responsible [...] sodium chloride 0.9% 1 00 mL IVPB (Yvgl3Qwu) 4 g cefTRIAXone (ROCEPHIN) 2 g in sodium chl oride 0.9 % 100 mL Jjek8Ymo 8 g fluconazole (DIFLUCAN) 200 mg in [...] Standard; Tolerated well 10/25/24 213 by Maureen Neslon RN 10/27/241999 by Solange Jj RN Arterial [...] the past 12 months has th e [employer], oil, or water [employer] threatened to shut off services in your [...] - 10/25/2024 7:26 PM EDT [facility] DEPARTMENT OF ANESTHESIOLOGY PRE-PROCEDURAL EVALUATION [...] dysrhythmias, angina, orthopnea. ECG reviewed. ROS comment: [facility] 10/14/24: IMPRESSIONS: - Patent coronary arteries [...] is no recent study available for direct pmxf-yi-eetv comparison. Stress echo 10/09/24: - Left ventricle: [...] at baseline or with provocation, shows no wikcp-yh-fbeh atrial level shunt. - Pulmonary arteries: Systolic [...] Resource Strain: Low Risk (07/09/2024) Received from [facility] Overall Financial Resource Strain (CARDIA) [...] Unknown (07/14/2024) Received from [facility] Exercise Vital Sign Days of Exercise per Week: Patient unable to answer Minutes of Exercise per Session: Not on file Stress: Patient Unable To Answer (07/14/2024) Received from [facility] [place] of Occupational Health - Occupational Stress Questionnaire Feeling of Stress : Patient unable to answer Social Connections: Patient Unable To Answer (07/14/2024) Received from [facility] Social Connection and Isolation Panel [NHANES] Frequency [...] times a day. naloxone (NARCAN) 4 mg/actuation [place] Apply 1 spray in one nostril if [...] MD - 10/25/2024 11:54 PM EDTAssociated Order(s): Braxton Emily Cath Braxton Emily Cath Date/Time: 10/25/2024 11:13 PM Performed [...] procedure performed. Ben Blake MD Attending Anesthesiologist [facility] * Jimmy Gonzalez MD - 10/25/2024 [...] procedure performed. Ben Blake MD Attending Anesthesiologist [facility] documented in this encounter Plan of [...] EDT Ben Blake MD 10/26/2024 7:45 PM [facility] Emily Cath Date/Time: 10/25/2024 11:13 PM Performed [...] - 10/26/2459 10/26/24699 - 10/27/24 0659 Shift 6615-0485 9191-1728 4958-9454 24 Hour Total 6534-5971 9435-1442 6991-7346 24 Hour Total INTAKE I.V. 9100(74.3) 9100(74.3) [...] in sodium chloride 0.9 % 100 mL Wsbh6Gkz) 100 100 Volume (mL) (AMPicillin 2 g in sodium chloride 0.9% 100 mL IVPB (Twvl0Skp)) 200 200 Volume (mL) (albumin human bottle 5%) 1000 1000 Volume (mL) (potassium chloride (KCl)/Sterile water 100 mL 10 mEq/100 mL IVPB) 200 200 Shift Total(mL/kg) 91530(151.9) 56498(151.9) OUTPUT Urine 150(0.2) 1375 1525 Urine 150 [...] in sodium chloride 0.9% 100 mL IVPB (Dutp8Cwv) 2 g, Intravenous, at 200 mL/hr, Every 6 hours, First dose on 10/26/24 at 0000, Use Pfdy3Lqa Adapter - Mix Thoroughly Before Administration Bolus [...] in sodium chloride 0.9 % 100 mL Vwgh4Qqa 2 g, Intravenous, Administer over 30 Minutes, Once, Use Tdbq7Ybi Adapter - Mix Thoroughly Before Administration, Indication? [...] documented as of this encounter Care Teams [employer] Cake Decorator Relationship Specialty Start Date End Date Enedina Mcguire NP [address] [place] [address] PCP - General Internal Medicine 10/05/24 documented as of this encounter
--- OUTSIDE RECORDS SUMMARY | 2024-10-27 02:00 | XMS_ITS | Encounter Summary ---
Author Organization [facility] Address [address] [place] [address] Care Team Providers [employer] Driver Name Role Phone Enedina Mcguire NP Primary Care Provider [phone] Source Comments This information has been disclosed [...] release of HIV test results or diagnoses. [id number] Reason for Visit * Auth/Cert (Routine) Specialty Diagnoses / Procedures Referred By Shane hernadez Referred To Contact Surgical Intensive Care Diagnoses Liver transplant recipient (CMS-HCC) cirrhosis and CKD Procedures LIVER-KIDNEY TRANSPLANT [facility] SICU [address] [place] [address] Phone: tel: Referral ID Status Reason Start Date Expiration Date Visits Re quested Visits Authorized [id number] 1 1 Encounter Details Date Type Department Care Team (Late st Contact Info) Description 10/27/2024 2:00 AM EDT - 10/27/2024 6:54 AM EDT Surgery [facility] PERIOP [address] [place] [address] Semaj Mcnair III, MD [address] [facility] [address] [place] [address] Donor Kidney Transplant , Back [...] Recorded In the past 12 months has [employer], oil, or water [employer] threatened to shut off services in your [...] Plata MD - 11/02/2024 2:04 PM EDT [facility] Liver Transplant Surgical Service Inpatient Discharge Summary Patient: Blair Gilbert : 1985 [facility]: [id number] Date of Admission: 10/25/2024 Date of Discharge: [...] Case IDs Date Procedure Surgeon Location Status [id number] 10/25/24 LIVER TRANSPLANT Semaj Mcnair III, MD OR Comp [id number] 10/27/24 Donor Kidney Transplant , Back Bench [...] EXAM: US ABDOMEN LIMITED EXAM: US DUPLEX GPR-AFOQSU-DOIYMYJ COMPLETE INDICATION: Post-op liver transplant COMPARISON: None [...] visualized secondary to poor acoustic windows. The [place] right kidney measures 11.6 cm in length. [...] 30 tablet Refills: 0 naloxone 4 mg/actuation [place] Commonly known as: NARCAN Apply 1 spray [...] to [facility] NAA Baum [address] Mya [address] [place] [address] mycophenolate 250 mg capsule tacrolimus 1 MG capsule These medications were sent to [facility] [address] [place] [address] Hours: Sunday - Sunday: 8:00AM - 6:00PM [...] Case IDs Date Procedure Surgeon Location Status [id number] 10/25/24 LIVER TRANSPLANT Semaj Mcnair III, MD OR Comp [id number] 10/27/24 Donor Kidney Transplant , Back Bench [...] discharge. NEURO/PAIN - Patient placed on Dilaudid ASBESTOS REMOVER once extubated, then transitioned to multi-modal pain [...] stentis scheduled for removal on 11[facility]25 [facility] [place] evaluated patient and recommended Home PT/OT, outpatient PT/OT only available. ENDO - A1C is 5.0. Pt was not on diabetic regimen prior to arrival. Patient developed steroid-induced hyperglycemia 2/2 steroid regimen. Discharged home on the following regimen: HDSSI. Patient met w/ music educator prior to discharge. HEME - Post-operatively, [...] Patient and family received post-transplant education from substance abuse prevention coordinator as well as medication teaching from [...] Department Center 11/04/2024 8:40 AM LTRA SURGERY, [facility] LTRA HOX HOX 11/04/2024 10:10 AM LTRA HEPATORENAL HOX LTRA HOX HOX 11/25/2024 9:00 AM NAA Merida [facility] URO MAB MAB 12/02/2024 2:00 PM Bossman Huffman MD [facility] MARIANGEL MAB MAB 02/25/2025 10:50 AM Bruno Gonzalez MD KTSP HOX HOX Kenyetta Hartman, MS-[address] [facility] SHAY PLATA MD 11/02/2024 12:50 PM [...] kept under 2 gm/day. Please discuss withyour digital account coordinator if you have any question about appropriate dose to take. Other Instructions: Call post-liver transplant clinic with questions [phone] or call [facility] at [phone] and ask for the liver substance abuse prevention coordinator lubrication technician if you experience any of the following: [...] Department Center 11/04/2024 8:40 AM LTRA SURGERY, [facility] LTRA HOX HOX 11/04/2024 10:10 AM LTRA HEPATORENAL [facility] LTRA HOX HOX 11/25/2024 9:00 AM [...] AM EDT 10/30/2024 naloxone (NARCAN) 4 mg/actuation Oconto Apply 1 spray in one nostril if [...] Expected caregiver involvement?: is primary med manager order Need for additional education in clinic?: routine [...] Disp-30 tablet, R-0 naloxone (NARCAN) 4 mg/actuation [place] Apply 1 spray in one nostril if [...] Solid Organ Transplant Clinical Specialist Contact via [employer] Secure Chat * Froylan Hendrickson MD - 11/01/2024 8:04 AM EDT Liver Transplant Surgery Progress Note Name: Blair Gilbert CSN: [id number] Date: 11/01/2024 8:06 AM OR Date: 10/25/2024 [...] at 10/31/2024 4:38 PM EDT US Duplex Srp-Ory-Sflgqiq Comp Result Date: 10/31/2024 IMPRESSION: RIGHT UPPER [...] - 10/27/2024. Plan: Liver transplant recipient ([facility]) [Z94.4] Neuro: - Multimodal pain control: [...] 3:24 PM EDT TXP - Follow Up [facility] Medical Nutrition Therapy Transplant Brief Note Diet Order/Nutrition Support: Diet/Nutrition Orders Diet Regular(7) high calorie 3000 kcal a day Frequency: Effective Now Number of Occurrences: Until Specified Order Questions: Additional restrictions: high calorie 3000 kcal a day Suicide/Behavior Risk Modification? No Dietary nutrition supplements Frequency: TID Number of Occurrences: Until Specified Order Questions: Select Supplement: Boost VHC- very high calorie protein supplement ([facility] only) Pertinent Information: Pt seen [...] Based on DBW of 93.1 kg Kcals/day: 7149-3513 (25-30 kcals/kg) Protein g/day: 140-190 (1.5-2.0 g/kg) [...] Dietitian - Solid Organ Transplant Contact via [employer] Chat * Keon Dobson - 10/31/2024 2:35 PM EDT [facility] Spiritual Care Volunteer Visit PATIENT NAME: Blair Gilbert ROOM:[address] [place] [address] Jewish Affiliation:Caodaism Blair Gilbert was visited by a volunteer today. No needs requiring a visit from a staff tie in hand were expressed at that time. Care Provided: Communion, Prayer/ blessing Please page our service at [phone] as needs arise for patient and/or family. Fr Dean Dobson Caodaism tie in hand Spiritual Care Dept * Brittany Horne [...] transplant recipient (CMS-HCC) [Z94.4] Date: 10/31/2024 Room: [facility] Reviewed Pertinent hospital course: [...] issued by OT: Long-handled sponge, Sock aid, Manager Game, Other (comment) Equipment issued by OT comment: leg retail store clerk Assessment Assessment: Decreased ADL status, Decreased IADLs, [...] IADL task (Goal met and continued 10/31) Skilled Nursing Goal : Pt will complete bathing assessment and transfer exterminator helper goal to be met in: [...] Active Problem List Diagnosis Decompensated cirrhosis ([facility]) Acute kidney injury superimposed on CKD ([facility]) Alcohol use disorder Metabolic encephalopathy Hypertension Other hyperlipidemia Thrombocytopenia ([facility]) Renal mass, left Abdominal pain Hypokalemia CKD (chronic kidney disease) stage 4, GFR 15-29 ml/min ([facility]) Metabolic acidosis with normal anion gap and bicarbonate losses GERD (gastroesophageal reflux disease) Hypothyroidism Itching Anemia BRBPR (bright red blood per rectum) SBP (spontaneous bacterial peritonitis) ([facility]) C Diff Diarrhea C. difficile diarrhea [...] 0659 10/31/24 07 - 11/01/24 0659 Shift 4672-8548 1930-2664 3020-5098 24 Hour Total 0326-9147 7064-7214 9523-5976 24 Hour Total INTAKE P.O. 240 240 P.O. 240 240 Shift Total(mL/kg) 240(1.9) 240(1.9) OUTPUT Urine(mL/kg/hr) 1850(1.8) 600(0.6) 600(0.6) 3050(1) 350 350 Urine 800 467 161 7997 350 350 Urine Occurrence 2 x 2 [...] with further concerns Lavell Kramer MD 10/31/[phone] * Priti Geiger CNP - 10/31/2024 10:06 AM EDT Liver Transplant Surgery Progress Note Name: Blair Gilbert CSN: [id number] Date: 10/31/2024 10:06 AM OR Date: 10/25/2024 [...] 10/28/24 1109 LACTATE 0.3* Imaging US Duplex Ptl-Csj-Obmynun Comp Result Date: 10/28/2024 IMPRESSION: ABDOMINAL ULTRASOUND [...] - 10/27/2024. Plan: Liver transplant recipient ([facility]) [Z94.4] Neuro: - Multimodal pain control: [...] Transplant Nephrology Progress Note Patient: Blair Gilbert [id number] Date of Admit: 10/25/2024. 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 Lauren Santos, SAMSON, RASCHEL KNITTING MACHINE OPERATOR, CLUB LOUNGE ATTENDANT- Transplant Nephrology [phone] Preferred contact: secure chat The HPI, ROS, [...] - 10/30/24 0610/30/24699 - 10/31/24 06 Shift 7104-8454 0349-4733 6568-3057 24 Hour Total 3990-4842 3679-9396 8828-2516 24 Hour Total INTAKE P.O. 240 240 480 P.O. 240 240 480 IV Piggyback 87.2 87.2 Volume (mL) (micafungin (MYCAMINE) 50 mg in sodium chloride 0.9 % 100 mL Spyi3Cah IVPB) 87.2 87.2 Shift Total(mL/kg) 240(2) 327.2(2.7) 567.2(4.4) OUTPUT Urine(mL/kg/hr) 600(0.6) 1175(1.2) 450(0.4) 2225(0.7) 550 550 Output (mL) (IUC (Berkowitz) Triple-lumen (3-Way) 18 Fr.) 600 3701 729 6140 550 550 Drains 175 245 100 520 [...] month of prophylaxis Lavell Kramer MD 10/30/[phone] * Priti Geiger CNP - 10/30/2024 10:36 AM EDT Liver Transplant Surgery Progress Note Name: Blair Gilbert CSN: [id number] Date: 10/30/2024 10:37 AM OR Date: 10/25/2024 [...] 1109 LACTATE 0.5 0.3* Imaging US Duplex Pls-Mzs-Lqcrdrx Comp Result Date: 10/28/2024 IMPRESSION: ABDOMINAL ULTRASOUND [...] - 10/27/2024. Plan: Liver transplant recipient ([facility]) [Z94.4] Neuro: - Multimodal pain control: [...] Transplant Nephrology Progress Note Patient: Blair Gilbert [id number] Date of Admit: 10/25/2024. 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 Lauren Santos, DNP, RASCHEL KNITTING MACHINE OPERATOR, CLUB LOUNGE ATTENDANT- Transplant Nephrology [phone] Preferred contact: secure chat The HPI, ROS, [...] EDT Pt seen, examined, and discussed with CLAY PIGEON SETTER on 10/30/2024. reviewed the chart including the labs and imaging studies. My additional comments below. 39 y.o. 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 Last BM Date: (line construction superintendent). Admit Weight: 270 lb (122.5 kg) Current [...] Based on DBW of 93.1 kg Kcals/day: 7979-7066 (25-30 kcals/kg) Protein g/day: 140-190 (1.5-2.0 g/kg) [...] Dietitian - Solid Organ Transplant Contact via [employer] Chat * Anita Carrascoradha, PT - 10/29/2024 2:04 PM EDT Physical Therapy Initial Assessment Name: Blair Gilbert : 1985 Attending Physician: Semaj Mcnair III, MD Admission Diagnosis: Liver transplant recipient (CMS-HCC) [Z94.4] Date: 10/29/2024 Room: [place] [address]/[place] [address] Reviewed Pertinent hospital course: Yes Hospital Course [...] with functional mobility at: 4/10 or less Raschel Knitting Machine Operator Goal : Pt will ambulate 250' mod [...] transplant recipient (CMS-HCC) [Z94.4] Date: 10/29/2024 Room: [place] [address] [address] Reviewed Pertinent hospital course: Yes Hospital Course [...] Intervention(s): Ambulation/increased activity;Repositioned Therapist reported pain to: cabin man Oxygen Supplemental Oxygen Supplemental Oxygen: None (Room [...] distance ambulation in prep for IADL task Raschel Knitting Machine Operator Goal : Pt will complete bathing assessment and transfer exterminator helper goal to be met in: [...] Active Problem List Diagnosis Decompensated cirrhosis ([facility]) Acute kidney injury superimposed on CKD [...] Transplant Nephrology Progress Note Patient: Blair Gilbert [id number] SICU-28/USIC-28 Date of Admit: 10/25/2024. 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 Lauren Santos, SAMSON, RASCHEL KNITTING MACHINE OPERATOR, CLUB LOUNGE ATTENDANT- Transplant Nephrology [phone] Preferred contact: secure chat The HPI, ROS, [...] EDT Pt seen, examined, and discussed with CLAY PIGEON SETTER on 10/29/2024. reviewed the chart including the labs and imaging studies. My additional comments below. 39 y.o. 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 Plan: Liver transplant recipient ([facility]) [Z94.4] Neuro: - Multimodal pain control: [...] SQH, SCDs DISPO: floor KENYETTA DEVAN, MS4 [facility] Surgery 10:08 AM 10/29/2024 Cosigned by Lydia [...] - 10/29/2465810/29/24 07 - 10/30/24 0659 Shift 6757-5977 5337-5924 0984-1098 24 Hour Total 5497-2370 3864-4941 2353-7679 24 Hour Total INTAKE P.O. 240 0 [...] IV infusion) 253.9 374.7 775.6 1404.2 Blood 9586 727 3443 Albumin 750 750 Volume (Transfuse RBC Transfusion Rate: Per dept routine) 310 310 Volume (Transfuse RBC Transfusion Rate: Per dept routine) 271 271 IV Piggyback 918.4 397 97 9797.4 Volume (mL) (micafungin (MYCAMINE) 50 mg in sodium chloride 0.9 % 100 mL Fods0Nmc IVPB) 99.9 99.9 Volume (mL) (albumin human [...] month of prophylaxis Lavell Kramer MD 10/29/[phone] * John Moreno MD - 10/29/2024 6:47 AM EDT SURGICAL ICU PROGRESS NOTE 10/29/2024 6:47 AM Name: Blair Gilbert CSN: [id number] HPI: Blair Gilbert is a 39 y.o. [...] day. blood-glucose meter (TRUE METRIX GLUCOSE METER) [facility] Use to test blood sugar up to 4 times a day. DEXCOM G7 CREDIT RATING INSPECTOR Misc Use reader as directed. DEXCOM G7 [...] and at bedtime. lancets (ACCU-CHEK SOFTCLIX LANCETS) [facility] Use to test blood sugar up to 4 times a day. methocarbamoL (ROBAXIN) 500 MG tablet Take 1 tablet (500 mg total) by mouth 3 times a day. naloxone (NARCAN) 4 mg/actuation [place] Apply 1 spray in one nostril if [...] 37 37 35 PO2ART 245* 182* 92 KJW5DPK 22 21* 21* BEART -4.2* -4.8* -4.6* [...] at baseline or with provocation, shows no kariu-rj-wnpu atrial level shunt. - Pulmonary arteries: Systolic [...] Home pantoprazole 40mg daily, continue Last BM: SENIOR J2EE DEVELOPER - suppository today Bowel regimen: Miralax today, [...] results for input(s): TEGANGLE , TEGKTIME , CPIIGPGC41 , TEGMAXAMPL , TEGRTIME , CBMZ in [...] in sodium chloride 0.9 % 100 mL Djcr6Tjx IVPB 50 mg Every 24 hours 10/27/2024 -- Admin Instructions: PROTECT FROM LIGHT FLUSH LINE w/NSS PRIOR TO ADMINISTRATION Use Cvuo9Vcw Adapter - Mix Thoroughly Before Administration Route: [...] BID Continuous Infusions: HYDROmorphone 6 mg/30 mL ASBESTOS REMOVER norepinephrine 4 mcg/min (10/27/24 2318) sodium chloride [...] 10/28/2459 10/28/24 07 - 10/29/24 0659 Shift 5418-5830 4128-7725 4205-5025 24 Hour Total 7155-1263 4198-1568 7320-6345 24 Hour Total INTAKE P.O. 0 120 [...] in sodium chloride 0.9 % 100 mL Dzbd9Sep IVPB) 100 100 Volume (mL) (albumin human 5%) 126 126 Volume (mL) (potassium chloride (KCl)/Sterile water 50 mL 20 mEq/50 mL IVPB 20 mEq) 100 100 Volume (mL) (AMPicillin 1 g in sodium chloride 0.9% 100 mL IVPB (Ropt3Imq)) 100.1 57 42.9 200 Volume (mL) (mycophenolate (CELLCEPT) 500 mg in dextrose 5% in water (D5W) 50 mL IVPB) 50 5.3 55.3 Shift Total(mL/kg) 2079.3(17) 1161(9.5) 787.3(6.4) 4027.6(32.9) OUTPUT Urine(mL/kg/hr) 2195(2.2) 1000(1) 900(0.9) 4095(1.4) 490 490 Urine 360 360 Output (mL) (IUC (Berkowitz) Triple-lumen (3-Way) 18 Fr.) 1835 2012 670 2004 490 490 Emesis/NG output 50 50 Drainage [...] month of prophylaxis Lavell Kramer MD 10/28/[phone] * Caron Santos CNP - 10/28/2024 9:00 AM EDT Images from the original note were not included. Transplant Nephrology Progress Note Patient: Blair Gilbert [id number] SICU-28/USIC-28 Date of Admit: 10/25/2024. 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 Lauren Santos, DNP, RASCHEL KNITTING MACHINE OPERATOR, CLUB LOUNGE ATTENDANT- Transplant Nephrology [phone] Preferred contact: secure chat The HPI, ROS, [...] EDT Pt seen, examined, and discussed with CLAY PIGEON SETTER on 10/28/2024. reviewed the chart including the labs and imaging studies. My additional comments below. 39 y.o. 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 S/p SLK 10/25-10/26 Has great UOP 4.2L Aaron Gonzalez MD, MEd, FASN * Shay Plata MD - 10/28/2024 7:41 AM EDT Liver Transplant Surgery Progress Note Name: Blair Gilbert CSN: [id number] Date: 10/28/2024 11:05 AM OR Date: 10/25/2024 - 10/27/2024 Subjective: 1 Day Post-Op Received one unit pRBCs overnight On low dose levo this morning Increasing tachycardia Reports worsening pain, on ASBESTOS REMOVER Tolerated sips of clears No nausea/vomiting, no [...] Oral BID Continuous: HYDROmorphone 6 mg/30 mL ASBESTOS REMOVER norepinephrine Stopped (10/28/24 0637) sodium chloride 0.9 [...] at 10/27/2024 10:38 AM EDT US Duplex Vlz-Cgz-Mkuavzs Comp Result Date: 10/27/2024 IMPRESSION: RIGHT UPPER [...] - 10/27/2024. Plan: Liver transplant recipient ([facility]) [Z94.4] Neuro: - Multimodal pain control: dilaudid ASBESTOS REMOVER, tylenol, robaxin. PRN dilaudid for breakthrough CV: [...] 10/28/2024 6:17 AM Name: Blair Gilbert CSN: [id number] HPI: Blair Gilbert is a 39 y.o. [...] to 4 times a day. DEXCOM G7 CREDIT RATING INSPECTOR Misc Use reader as directed. DEXCOM G7 [...] times a day. naloxone (NARCAN) 4 mg/actuation [place] Apply 1 spray in one nostril if [...] Oral BID Continuous: HYDROmorphone 6 mg/30 mL ASBESTOS REMOVER insulin regular in 0.9 % sodium chloride [...] 37 37 35 PO2ART 245* 182* 92 LGL3XGK 22 21* 21* BEART -4.2* -4.8* -4.6* [...] at baseline or with provocation, shows no ruyhf-yo-hmpz atrial level shunt. - Pulmonary arteries: Systolic [...] while intubated,convert to PO today Last BM: SENIOR J2EE DEVELOPER Bowel regimen: Miralax today, hold senna til [...] ml IV Fluids: HYDROmorphone 6 mg/30 mL ASBESTOS REMOVER insulin regular in 0.9 % sodium chloride, [...] no concerns - 3 day berkowitz - wv 10/30 - Makes urine at baseline - [...] results for input(s): TEGANGLE , TEGKTIME , RCNUOIVU51 , TEGMAXAMPL , TEGRTIME , CBMZ in [...] in sodium chloride 0.9% 100 mL IVPB (Pbou4Poa) (Completed) 1 g Every 6 hours scheduled 10/26/2024 10/28/2024 Admin Instructions: Dosage may need to be adjusted for renal dysfunction. Full dose is 1g IV q6h Use Wrqy6Gzq Adapter - Mix Thoroughly Before Administration Notes to Pharmacy: On us customs and border officer estimated creatinine clearance is 35.9 mL/min (A) [...] in sodium chloride 0.9 % 100 mL Xmfb3Fmr IVPB 50 mg Every 24 hours 10/27/2024 -- Admin Instructions: PROTECT FROM LIGHT FLUSH LINE w/NSS PRIOR TO ADMINISTRATION Use Eebb7Lwt Adapter - Mix Thoroughly Before Administration Route: [...] the Caprini Risk Score of 10 and [facility] transplant protocol, I recommend discharging [...] Solid Organ Transplant Clinical Specialist Contact via [employer] Secure Chat Preferred O. [phone] * Chinedu Almeida RRT - 10/27/2024 1:10 [...] PCO2 37 10/27/2024 PO2ART 245 (H) 10/27/2024 CAX2NMB 22 10/27/2024 BEART -4.2 (L) 10/27/2024 GTW7LBM 96.5 10/27/2024 D0XDXMWC 100 10/27/2024 Based on this SBT assessment [...] Transplant Surgery Progress Note Name: Blair Gilbert [facility]: [id number] Date: 10/27/2024 11:40 AM OR Date: 10/25/2024 - 10/27/2024 Subjective: * Day of Surgery * Remains intubated in SICU Sedated but appropriately nods to questions No acute distress Objective: BP 100/48 Pulse 89 Temp 99 ??F (37.2 ??C) ([place]) Resp 9 Ht 6' 4 (1.93 m) [...] at 10/27/2024 10:38 AM EDT US Duplex Mfg-Ulq-Avddrmc Comp Result Date: 10/27/2024 IMPRESSION: RIGHT UPPER [...] Active Problem List Diagnosis Decompensated cirrhosis ([facility]) Acute kidney injury superimposed on CKD ([facility]) Alcohol use disorder Metabolic encephalopathy Hypertension Other hyperlipidemia Thrombocytopenia ([facility]) Renal mass, left Abdominal pain Hypokalemia [...] 10/27/2024 7:16 AM Name: Blair Gilbert CSN: [id number] HPI: Blair Gilbert is a 39 y.o. [...] times a day. naloxone (NARCAN) 4 mg/actuation [place] Apply 1 spray in one nostril if [...] 47* 36 37 PO2ART 127* 91 137* IBU1ZIG 21* 22 20* BEART -5.4* -3.9* -6.4* [...] at baseline or with provocation, shows no wzczz-eu-rsbj atrial level shunt. - Pulmonary arteries: Systolic [...] IV pantoprazole while intubated, NPO Last BM: SENIOR J2EE DEVELOPER Bowel regimen: Senna/Miralax when able Nausea: Zofran [...] 10/27/2024 0715 Gross per 24 hour Intake 00800.82 ml Output 7060 ml Net 6224.82 ml [...] results for input(s): TEGANGLE , TEGKTIME , NDZHNGYW86 , TEGMAXAMPL , TEGRTIME , CBMZ in [...] in sodium chloride 0.9% 100 mL IVPB (Xfcd1Nui) 1 g Every 6 hours scheduled Admin Instructions: Dosage may need to be adjusted for renal dysfunction. Full dose is 1g IV q6h Use Dtbf8Gzq Adapter - Mix Thoroughly Before Administration Notes to Pharmacy: On us customs and border officer estimated creatinine clearance is 35.9 mL/min (A) (based on SCr of 3.87 mg/dL (H)). Route: Intravenous Linked Group 1: Placed in And Linked Group cefTRIAXone (ROCEPHIN) 2 g in sodium chloride 0.9 % 100 mL Nnhf1Tzu Continuous - One Step Medications Only 10/27/2024 [...] R IJ Mac Arterial Line? R radial [place] Urinary Catheter? Berkowitz - Reason: Adequate I/O [...] Solid Organ Transplant Clinical Specialist Contact via TouchFrame Preferred * Simeon Guzman RN - 10/27/2024 2:40 AM EDT Pt was taken to the OR by OR staff. Pt left in B upper extremity limb restraints in place. Care transferred to OR staff at this time. Simeon REDMAN * Jannet Ramiers - 10/26/2024 2:30 PM EDT ECG performed [...] 10/26/2024 0725 Gross per 24 hour Intake 87631.32 ml Output 2075 ml Net 74824.32 ml Consitutional: Intubated/sedated HEENT: Mucous membranes moist [...] patient on 10/26/24, and discussed with the SAWYRE/resident team. I agree with the SAWYER/resident???s findings [...] History and Physical Patient: Blair Gilbert CSN: [id number] History CC: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 naloxone (NARCAN) 4 mg/actuation [place] Apply 1 spray in one nostril if [...] Activity: Unknown (07/14/2024) Received from [facility] Exercise Vital Sign Days of Exercise per Week: Patient unable to answer Minutes of Exercise per Session: Not on file Stress: Patient Unable To Answer (07/14/2024) Received from [facility] [place] of Occupational Health - Occupational Stress Questionnaire Feeling of Stress : Patient unable to answer Social Connections: Patient Unable To Answer (07/14/2024) Received from [facility] Social Connection and Isolation Panel [NHANES] Frequency of Communication with Friends and Family: Patient unable to answer Frequency of Social Gatherings with Friends and Family: Patient unable to answer Attends Jewish Services: Patient unable to answer Active Member [...] -- 5.4 ALBUMIN 3.2* 3.1* Invalid input(s): [facility] Other labs: Imaging Studies No results [...] Critical access hospital Surgery Liver Transplant Pager: [phone] 8:24 PM 10/25/2024 Cosigned by Semaj [...] Name: Blair Gilbert Date: 1985 Billing #: [id number] Date of Procedure: 10/25/2024 Diagnosis: End Stage Renal Disease Procedure: 1. Donor Kidney Transplant 2. Back Bench Preparation Donor Kidney 3. Baseline Kidney transplant biopsy 4. Insertion of Indwelling Stent 5. Removal of Perihepatic packing Surgeons * Flaquito Ba MD Contract Technician MD Shayan Findings: Low Hockey stick [...] donor was ABO O and UNOS ID [id number], Match Run [id number] (SLK). This donor was a Donor after [...] was then wanded with the lap detection family and divorce legal assistant. The incision was ex tented 2 [...] and closure. Flaquito Ba MD Transplant Surgeon warp starter * Flaquito Ba MD - 10/27/2024 6:15 AM EDT TRANSPLANT KIDNEY with bile duct reconstruction Brief Op Note Blair Gilbert 10/27/2024 Pre-op Diagnosis: Acute kidney injury superimposed on CKD (CMS-HCC) [N17.9, N18.9] Post-op Diagnosis: same Procedure(s): TRANSPLANT KIDNEY Surgeon(s): MD Semaj Washington III, MD Anesthesia: General Endotracheal Staff: Intake Manager: Chinedu Quinn RN Scrub Person: ST Angela Fellow: Kemar Sahni MD 2nd Intake Manager: Marty Clark RN 3rd Intake Manager: Candis Mcdaniel RN FINDINGS Berkowitz 3 day Drains: Intraabdominal (perihepatic) UNOS ID [id number], Match Run [id number] Kid WIT 27 min Kid CIT 33 [...] (Berkowitz) Triple-lumen (3-Way) 18 Fr. (Active) Status Colbert Drainage 10/26/241999 Collection Container Standard drainage bag [...] Washington III, MD Anesthesia: General Endotracheal Staff: Intake Manager: Chinedu Quinn RN Relief Intake Manager: Michela Amos RN Relief Scrub: Stephani Blake RN Scrub Person: ST Angela Fellow: Kemar Sahni MD 2nd Intake Manager: Marty Clark RN 3rd Intake Manager: Candis Mcdaniel RN Estimated Blood Loss: [...] (Berkowitz) Triple-lumen (3-Way) 18 Fr. (Active) Status Colbert Drainage 10/26/241999 Collection Container Standard drainage bag [...] day Drains: 2 Intraabdominal (perihepatic) UNOS ID [id number], Match Run [id number] Donor: young DCD NRP Kid WIT 27 [...] BLAIR GILBERT DATE OF : 1985 CSN: [id number] PHYSICIAN: Semaj Mcnair III, MD ADMIT DATE: 10/25/2024 DICTATED BY: Semaj Mcnair III, MD SURGERY DATE: 10/27/2024 OPERATIVE REPORT SURGEON: Semaj Mcnair III, MD SENIOR PROCUREMENT MANAGER SURGEON: Kemar Sahni MD. PREOPERATIVE DIAGNOSIS: [...] were made hemostatic with the argon beam marketing programs manager. We assessed the flows of the [...] a mucocele formation. We then performed a yazh-nv-xpdn choledochocholedochostomy in an end to end fashion [...] small umbilicalhernia that was closed with a xoweew-uc-yfjtj 0 PDS suture. At this point, we [...] complications. SEMAJ MCNAIR III, MD RCQ/AQ JOB#: [id number] * Semaj Mcnair III, MD - 10/26/2024 7:00 AM EDT Patient Name: Blair Gilbert Date: 1985 Billing #: [id number] Date of Procedure: 10/25/2024 - 10/26/2024 Diagnosis: Chronic Hepatic Failure without coma Procedure: 1. Orthotopic Liver Transplant 2. Back Bench Preparation Donor Liver 3. Temporary portocaval shunt 4. Perihepatic packing for control of hemorrhage 5. Placement of external choledochal stent 6. Temporary abdominal closure Attending surgeons: Semaj Mcnair III, MD Contract Technician Surgeon(s): Sveta Judge MD Findings: Whole organ placed in piggyback fashion with suprahepatic cava of donor to common orifice of all three hepatic veins for IVC anastomosis. Donor main portal vein to recipient main portal vein. Donor common hepatic artery to recipient right hepatic artery. Temporary abdominal with perihepatic packingfor control of hemorrhage. Externalization of bile duct with 8 Sinhala pediatric feeding tube. Portal Flow Modulation No [...] This donor was ABO O and UNOSID [id number], Match Run [id number]. This was a 42-year-old donation after circulatory [...] After completion of the outflow anastomosis, a Macedonian clamp was placed across the donor suprahepatic [...] artery flows were then measured with the [employer] device. The portal flow was 3.4 L/min [...] do a temporary abdominal closure. An 8 Sinhala pediatric feeding tube was brought through the [...] Sveta Alves III, MD Anesthesia: General Staff: Intake Manager: Mak Maher RN; Marty Clark RN Scrub Person: ST Angela Resident: Thuy Leon MD cook specialty: Jose Daniel Arana RRT Estimated Blood Loss: [...] Number of days: 5 Surgery Information: -UNOS#: [id number] -ABO: O to O -Recipient: SLK candidate [...] 1:19 PM EDTAssociated Order(s): IP CONSULT TO MECHANICAL MAINTENANCE FOREMAN [facility] Transplant Discharge Education Note Assessment: Received [...] Gomez, MSN, RN, NPD- Diabetes Education Office [phone] Schedule: M-F 8:00am-4:30pm * Ben Weiss, RD - 10/27/2024 4:06 PM EDTAssociated Order(s): IP CONSULT TO NUTRITION SERVICES; IP CONSULT TO NUTRITION SERVICES TXP - Initial [facility] Medical Nutrition Therapy Reason(s) for Completion: [...] I/O: +23.2L net volume. Last BM Date: (SENIOR J2EE DEVELOPER). Admit Weight: 270 lb (122.5 kg) Current [...] 07/26/2024 Renal cell carcinoma (CMS-HCC) Thrombocytopenia ([facility]) Thyroid disease Past Surgical History: Procedure Laterality [...] Based on DBW of 93.1 kg Kcals/day: 0875-7562 (25-30 kcals/kg) Protein g/day: 140-190 (1.5-2.0 g/kg) [...] Dietitian - Solid Organ Transplant Contact via [employer] Chat * Lavell Kramer MD - 10/27/2024 11:09 AM EDTAssociated Order(s): INPATIENT CONSULT TO TRANSPLANT INFECTIOUS DISEASES Infectious Disease Consultation Patient: Blair Gilbert CSN: [id number] Assessment & Plan 39 y.o. M s/p [...] blood cx's if febrile Lavell Kramer MD [phone] Chief Complaint Long Qtc History of Present [...] Activity: Unknown (07/14/2024) Received from [facility] Exercise Vital Sign Days of Exercise per Week: Patient unable to answer Minutes of Exercise per Session: Not on file Stress: Patient Unable To Answer (07/14/2024) Received from [facility] [place] of Occupational Health - Occupational Stress Questionnaire Feeling of Stress : Patient unable to answer Social Connections: Patient Unable To Answer (07/14/2024) Received from [facility] Social Connection and Isolation Panel [NHANES] Frequency of Communication with Friends and Family: Patient unable to answer Frequency of Social Gatherings with Friends and Family: Patient unable to answer Attends Jewish Services: Patient unable to answer Active Member [...] to 4 times a day. DEXCOM G7 CREDIT RATING INSPECTOR Misc Use reader as directed. DEXCOM G7 [...] times a day. 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 No indications for COSTUME SHOP COORDINATOR. Good UOP - Noted KT US [...] preliminary until attending attestation. Lauren Santos, SAMSON, RASCHEL KNITTING MACHINE OPERATOR, CLUB LOUNGE ATTENDANT- Transplant Nephrology [phone] Preferred contact: secure chat [1] Allergies Allergen Reactions Adhesive Itching and Rash Tegaderm adhesive on Ivs, pt states its tolerable Duloxetine Other (See Comments) Became Manic Cosigned by Aaorn Gonzalez MD at 10/27/2024 4:48 PM EDT [...] Gonzalez MD, MEd, FASN * Marcellus Hebert, ANGIO TECHNOLOGIST, FISHING CAPTAIN - 10/27/2024 10:21 AM EDT HEALTH Care Management/Social Work Assessment Patient Information Patient Name: Blair Gilbert Hospital Day: 2 Inpatient/Observation: Inpatient Admit Date: 10/25/2024 Admission Diagnosis: Liver transplant recipient (CMS-HCC) [Z94.4] Attending provider: Semaj Mcnair III, MD PCP: Enedina Mcguire NP Home Pharmacy: [facility] [address] [place] [address], [facility] [address] [place] [id number] [address] [facility] [address] [facility] [address] Issues related to obtaining medications: N/A Payor Information Medical Insurance Coverage: Payor: [facility] / Plan: [facility] / Product Type: *No Producttype* / [...] History: 12 weeks of CD Treatement at [facility] Do you need Substance Abuse Treatment [...] Was any abuse reported by patient?: No [place] Status & Connection to VA Services [place] Status & Connection to [facility] Services Are [...] spouse at their one story home in [place]. 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 Patient's LNOK:Spouse, Abdiaziz Gilbert, Patient has no current or past history of suicidal/homicidal ideation. Patient has a history of mental health diagnoses, PTSD and Generalized Anxiety Disorder. Patient is connected with TransplantPsychiatrist and prescribed Prozac. Patient has a history of alcohol use and has completed 12 weeksof CD Treatment at [facility]. Spouse explained that he will complete a 6 month virtual program post transplant but could not recall the name of the program. Patient has no current tobacco use. No previous need or recommendation for home health care services and no previous placements at detention facility and/or inpatient rehab program. Patient has [...] as appropriate. NUBIA Escalera, RONALDO Phone Number: [phone] * John Moreno MD - 10/26/2024 3:41 AM EDT SURGICAL ICU CONSULT NOTE 10/26/2024 3:41 AM Name: Blair Gilbert CSN: [id number] HPI: Blair Gilbert is a 39 y.o. [...] at 9:00 PM naloxone (NARCAN) 4 mg/actuation [place] Apply 1 spray in one nostril if [...] % 250 mL infusion 2.5 mcg/min (10/26/24 9569) insulin regular in 0.9 % sodium chloride norepinephrine 18 mcg/min (10/26/24 0783) vasopressin 0.04 Units/min (10/26/24 4864) PRN Meds: heparin (porcine) 5,000 unit/mL 10,000 [...] input(s): PHART , PCO2 , PO2ART , JTZ8XSF , BEART in the last 72 hours. [...] at baseline or with provocation, shows no szvjs-yv-gurr atrial level shunt. - Pulmonary arteries: Systolic [...] IV pantoprazole while intubated, NPO Last BM: SENIOR J2EE DEVELOPER Bowel regimen: Senna/Miralax when able Nausea: Zofran PRN FLUID/ELECTROLYTES Recent Labs 10/25/242216 NA 137 K 2.1* CL 100 CO2 20* BUN 74* CREATININE 3.87* CALCIUM 9.3 PHOS 5.9* GLUCOSE 114* Intake/Output Summary (Last 24 hours) at 10/26/2024 0341 Last data filed at 10/26/2024 0326 Gross per 24 hour Intake 70158 ml Output 675 ml Net 22006 ml IV Fluids: EPINEPHrine (ADRENALIN) 10 mg [...] results for input(s): TEGANGLE , TEGKTIME , PVWCHXVO56 , TEGMAXAMPL , TEGRTIME , CBMZ in [...] in sodium chloride 0.9% 100 mL IVPB (Yeme7Kjk) 2 g Every 6 hours 10/26/2024 -- Admin Instructions: Use Puuf5Nbx Adapter - Mix Thoroughly Before Administration Notes to Pharmacy: On us customs and border officer estimated creatinine clearance is 35.9 mL/min (A) (based on SCr of 3.87 mg/dL (H)). Route: Intravenous AMPicillin 2 g in sodium chloride 0.9% 100 mL IVPB (Miby9Ork) 2 g Once 10/26/2024 -- Admin Instructions: Use Gjsw6Hpp Adapter - Mix Thoroughly Before Administration Notes to Pharmacy: On us customs and border officer estimated creatinine clearance is 35.9 mL/min (A) (based on SCr of 3.87 mg/dL (H)). Route: Intravenous cefTRIAXone (ROCEPHIN) 2 g in sodium chloride 0.9 % 100 mL Ujbt8Mzd (Completed) 2 g Once 10/25/2024 10/26/2024 Admin Instructions: Use Jlza6Pwf Adapter - Mix Thoroughly Before Administration Route: [...] 47 (H) 10/26/2024 PO2ART 127 (H) 10/26/2024 JRR4KCW 21 (L) 10/26/2024 BEART -5.4 (L) 10/26/2024 WER6TIS 94.6 (L) 10/26/2024 X3FPYWXT 98 10/26/2024 P:F ratio = 363 CARDIOVASCULAR: [...] Acute Care Surgery, and Surgical Critical Care [facility] Academic Office [phone] For Transfers, call [phone] documented in this encounter Nursing Notes * [...] Progressing * Care Coordination - NUBIA Escalera, FISHING CAPTAIN - 10/31/2024 11:34 AM EDT [facility] Case Management/Social Work Department Progress Note [...] Home Pharmacy: [facility] [address] [place] [id number] [facility] [address] [facility] [address] [facility] NAA Baum - [address] [facility] [place] [id number] Medical Insurance Coverage: Payor: [facility] / Plan: [employer] / Product Type: *No Product type* / Other Pertinent Information MEREDITH received report from Transplant medical team. SW completed chart review. Per report patient is not medically ready to discharge. Patient recommended for home PT/OT and 2x weekly labs. SW followed up on [facility] referrals and submitted a few more [facility] referrals. Update: MEREDITH made nurse educator aware that there were no accepting [facility] agencies([facility], [facility], [facility]) and patient would need to outpatient for PT/OT and labs. Discharge Plan Anticipated discharge plan: Home with HHC vs Home with outpatient Anticipated discharge date: 11/01 CM/SW will continue to follow and remain available for discharge planning needs. NUBIA Escalera, RONALDO Cell [phone] * Plan of Care - Paulette Flannery [...] Citlaly Nova - 10/29/2024 1:53 PM EDT [facility] Case Management/Social Work Department Progress Note [...] Home Pharmacy: [facility] [address] [address] [facility] [address] [facility] [address] [facility] NAA Baum - [address] [place] [address] Medical Insurance Coverage: Payor: [facility] [...] referral. SW submitted blanket HHC referral to [employer] [facility], [facility] [place], [facility] [employer] [facility], and [facility]. Awaiting responses. SW to followpending clearance [...] available for discharge planning needs. NUBIA Rhodes, FISHING CAPTAIN Inpatient Utility Appraiser/Care Coordination [phone] * Plan of Care - Soco Yap [...] Escalera LSW - 10/28/2024 2:29 PM EDT [facility] Case Management/Social Work Department Progress Note Patient Information Patient Name: Blair Gilbert Hospital day: 3 Inpatient/Observation: Inpatient Level of Care: Transplant Admit date: 10/25/2024 Admission diagnosis: Liver transplant recipient (CMS-HCC) [Z94.4] PMH: has a past medical history of Alcoholic cirrhosis of liver (CMS-HCC), Esophageal varices (CMS-HCC), Hepatorenal syndrome ([facility]), Hypertension, Other hyperlipidemia (07/26/2024), Renal cell carcinoma ([facility]), Thrombocytopenia ([facility]), and Thyroid disease. PCP: Enedina Mcguire NP Home Pharmacy: [facility] [address] [place] [id number] [facility] [address] [facility] [address] [facility] Deya NAA Falk - [address] [facility] [place] [address] [facility] [place] [address] Medical Insurance Coverage: Payor: [facility] / Plan: [employer] / [...] discharge planning needs. NUBIA Escalera, RONALDO Cell [phone] * Plan of Care - Elaine Carrillo [...] at all times. Outcome: Completed Problem: Non-violent, nft-wkjo-ahpfkcfcbhw restraints Description: Less restrictive alternative interventions will [...] of medical procedures, or protection of biomedical electronics technician access. Outcome: Completed * Plan of [...] foods as appropriate. Outcome: Progressing Problem: Non-violent, zhu-uqcf-arntdfmxpyv restraints Description: Less restrictive alternative interventions will [...] of medical procedures, or protection of biomedical electronics technician access. Outcome: Progressing * Plan of Care - Shanel Shen RN - 10/27/2024 9:00 AM EDT Problem: Non-violent, xgr-baeu-frcnaanjxmt restraints Description: Less restrictive alternative interventions will [...] - 10/26/2024 7:41 PM EDT Problem: Non-violent, god-xtic-istcbqfpehx restraints Description: Less restrictive alternative interventions will [...] of medical procedures, or protection of biomedical electronics technician access. Outcome: Not Progressing Patient in [...] restraint flowsheet for further documentation. Problem: Non-violent, fqn-tldw-knbnqkeomwf restraints Description: Less restrictive alternative interventions will [...] of medical procedures, or protection of biomedical electronics technician access. Outcome: Progressing * Plan of [...] Acute kidney injury superimposed on CKD ([facility]) Release Upon Ordering for 1 Occurrences [...] Routine 10/31/2024 11:59 AM EDT US DUPLEX RZG-DWMNAU-SBICTZN COMPLETE Routine 10/31/2024 10:19 AM EDT US [...] Routine 10/28/2024 5:31 PM EDT US DUPLEX OCG-PMCURG-UTWTUNT COMPLETE STAT 10/28/2024 4:23 PM EDT US [...] Routine 10/27/2024 10:00 AM EDT US DUPLEX IGO-KZBHQJ-BTMETPE COMPLETE STAT 10/27/2024 9:51 AM EDT US [...] EDT Acute kidney injury superimposed on CKD ([facility]) [place] RENAL ALTRNSPLJ IMPLTJ GRF W/RETAIL SHIFT LEADER NEPHRECTOMY 10/27/2024 2:32 AM EDT Acute kidney injury superimposed on CKD ([facility]) 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 smith [...] - 100 mg/dL 11/02/2024 5:45 PM EDT [facility] Blood 11/02/2024 5:44 PM EDT 11/02/2024 5:45 PM EDT Semaj Mcnair III, MD POINT OF CARE TEST ORDERABLES Final Result Performing Organization Address [facility] Co de Phone Number [facility] [address] [facility]. [address] * (ABNORMAL) POC Glucose Monitoring Device (11/02/2024 3:34 PM EDT) POC Glucose Monitoring Device 208(H) 70 - 100 mg/dL 11/02/2024 3:35 PM EDT [facility] Blood 11/02/2024 3:34 PM EDT 11/02/2024 3:35 PM EDT Semaj Mcnair III, MD POINT OF CARE TEST ORDERABLES Final Result Performing Organization Address [facility] Co de Phone Number [facility] [address] [facility]. [address] * (ABNORMAL) POC Glucose Monitoring Device (11/02/2024 1:18 PM EDT) POC Glucose Monitoring Device 225(H) 70 - 100 mg/dL 11/02/2024 1:19 PM EDT [facility] Blood 11/02/2024 1:18 PM EDT 11/02/2024 1:19 PM EDT Semaj Mcnair III, MD POINT OF CARE TEST ORDERABLES Final Result Performing Organization Address City/[facility] Co de Phone Number [facility] [address] [facility]. [address] * (ABNORMAL) POC Glucose Monitoring Device (11/02/2024 8:59 AM EDT) POC Glucose Monitoring Device 129(H) 70 - 100 mg/dL 11/02/2024 9:00 AM EDT [facility] Blood 11/02/2024 8:59 AM EDT 11/02/2024 9:00 AM EDT Semaj Mcnair III, MD POINT OF CARE TEST ORDERABLES Final Result Performing Organization Address City/[facility]/ZIP Co de Phone Number [facility] [address] * Tacrolimus level (11/02/2024 5:53 AM EDT) Tacrolimus (LC-MS) 7.4 3.0 - 15.0 ng/mL 11/02/2024 2:23 PM EDT [facility] Comment:Performed via liquid chromatography tandem mass spectrometry. Detection limit: 1 ng/mL. Individual target concentrations may vary due to target organ and time after transplant. This test has been developed and its performance characteristics determined by [facility] which is certified under the [...] ORDERABLES Denisse l Result Performing Organization Address City/[facility] Co de Phone Number [facility] [address] [facility]. [address] * (ABNORMAL) Renal Function Panel w/EGFR (11/02/2024 5:53 AM EDT) Sodium 140 133 - 146 mmol/L 11/02/2024 6:47 AM EDT [facility] Potassium 3.3(L) 3.5 - 5.3 mmol/L 11/02/2024 6:47 AM EDT [facility] Chloride 107 98 - 110 mmol/L 11/02/2024 6:47 AM EDT [facility] CO2 25 21 - 33 mmol/L 11/02/2024 6:47 AM EDT [facility] Anion Gap 8 3 - 16 mmol/L 11/02/2024 6:47 AM EDT [facility] BUN 31(H) 7 - 25 mg/dL 11/02/2024 6:47 AM EDT [facility] Creatinine 1.08 0.60 - 1.30 mg/dL 11/02/2024 6:47 AM EDT [facility] Glucose 150(H) 70 - 100 mg/dL 11/02/2024 6:47 AM EDT [facility] Calcium 7.8(L) 8.6 - 10.3 mg/dL 11/02/2024 6:47 AM EDT [facility] Phosphorus 2.0(L) 2.1 - 4.7 mg/dL 11/02/2024 6:47 AM EDT [facility] Albumin 3.2(L) 3.5 - 5.7 g/dL 11/02/2024 6:47 AM EDT [facility] Osmolality, Calculated 299 278 - 305 mOsm/kg 11/02/2024 6:47 AM EDT [facility] EGFR 88 11/02/2024 6:47 AM EDT [facility] Comment:As of 2021, the estimated GFR [...] 11/02/2024 6:12 AM EDT us Beata Horner [facility] BLOOD ORDERABLES Denisse l Result [facility] [address] * (ABNORMAL) Magnesium (11/02/2024 5:53 AM EDT) Magnesium 1.3(L) 1.5 - 2.5 mg/dL 11/02/2024 6:47 AM EDT [facility] Plasma 11/02/2024 5:53 AM EDT 11/02/2024 6:12 AM EDT Beata Horner [facility] BLOOD ORDERABLES Denisse l Result [facility] [address] [facility]. [address] * (ABNORMAL) Hepatic Function Panel (11/02/2024 5:53 AM EDT) Total Bilirubin 1.6(H) 0.0 - 1.5 mg/dL 11/02/2024 6:47 AM EDT [facility] Bilirubin, Direct 0.81(H) 0.00 - 0.40 mg/dL 11/02/2024 6:47 AM EDT [facility] AST 30 13 - 39 U/L 11/02/2024 6:47 AM EDT [facility] ALT 66(H) 7 - 52 U/L 11/02/2024 6:47 AM EDT [facility] Alkaline Phosphatase 126(H) 36 - 125 U/L 11/02/2024 6:47 AM EDT [facility] Total Protein 4.6(L) 6.4 - 8.9 g/dL 11/02/2024 6:47 AM EDT [facility] Albumin 3.2(L) 3.5 - 5.7 g/dL 11/02/2024 6:47 AM EDT [facility] Bilirubin, Indirect 0.79 0.00 - 1.10 mg/dL 11/02/2024 6:47 AM EDT [facility] Plasma 11/02/2024 5:53 AM EDT 11/02/2024 6:12 AM EDT [employer] Horner [facility] BLOOD ORDERABLES Denisse l Result [facility] [address] * (ABNORMAL) CBC (11/02/2024 5:53 AM EDT) [facility] WBC 5.8 3.8 - 10.8 10E3/uL 11/02/2024 6:21 AM EDT [facility] RBC 3.12(L) 4.20 - 5.80 10E6/uL 11/02/2024 6:21 AM EDT [facility] Hemoglobin 9.2(L) 13.2 - 17.1 g/dL 11/02/2024 6:21 AM EDT [facility] Hematocrit 27.5(L) 38.5 - 50.0 % 11/02/2024 6:21 AM EDT [facility] MCV 87.9 80.0 - 100.0 fL 11/02/2024 6:21 AM EDT [facility] MCH 29.5 27.0 - 33.0 pg 11/02/2024 6:21 AM EDT [facility] MCHC 33.5 32.0 - 36.0 g/dL 11/02/2024 6:21 AM EDT [facility] RDW 17.5(H) 11.0 - 15.0 % 11/02/2024 6:21 AM EDT [facility] Platelets 61(L) 140 - 400 10E3/uL 11/02/2024 6:21 AM EDT [facility] MPV 7.9 7.5 - 11.5 fL 11/02/2024 6:21 AM EDT [facility] Whole Blood 11/02/2024 5:53 AM EDT 11/02/2024 6:12 AM [facility]T [facility]ner [facility] BLOOD ORDERABLES Denisse l Result [facility] [address] [place] [address], [facility] * (ABNORMAL) POC Glucose Monitoring Device (11/01/2024 9:26 PM EDT) POC Glucose Monitoring Device 199(H) 70 - 100 mg/dL 11/01/2024 9:27 PM EDT [facility] Blood 11/01/2024 9:26 PM EDT 11/01/2024 9:27 PM EDT Semaj Mcnair III, MD POINT OF CARE TEST ORDERABLES Final Result [facility] [address] * (ABNORMAL) POC Glucose Monitoring Device (11/01/2024 5:04 PM EDT) POC Glucose Monitoring Device 255(H) 70 - 100 mg/dL 11/01/2024 5:05 PM EDT [facility] Blood 11/01/2024 5:04 PM EDT 11/01/2024 5:05 PM EDT Semaj Mcnair III, MD POINT OF CARE TEST ORDERABLES Final Result Performing Organization Address City/[facility] Co de Phone Number [facility] [address] [place] [address] * (ABNORMAL) Renal Function Panel w/EGFR, STAT (11/01/2024 2:17 PM EDT) Sodium 139 133 - 146 mmol/L 11/01/2024 3:10 PM EDT [facility] Potassium 3.3(L) 3.5 - 5.3 mmol/L 11/01/2024 3:10 PM EDT [facility] Chloride 107 98 - 110 mmol/L 11/01/2024 3:10 PM EDT [facility] CO2 24 21 - 33 mmol/L 11/01/2024 3:10 PM EDT [facility] Anion Gap 8 3 - 16 mmol/L 11/01/2024 3:10 PM EDT [facility] BUN 35(H) 7 - 25 mg/dL 11/01/2024 3:10 PM EDT [facility] Creatinine 1.22 0.60 - 1.30 mg/dL 11/01/2024 3:10 PM EDT [facility] Glucose 203(H) 70 - 100 mg/dL 11/01/2024 3:10 PM EDT [facility] Calcium 8.3(L) 8.6 - 10.3 mg/dL 11/01/2024 3:10 PM EDT [facility] Phosphorus 2.2 2.1 - 4.7 mg/dL 11/01/2024 3:10 PM EDT [facility] Albumin 3.4(L) 3.5 - 5.7 g/dL 11/01/2024 3:10 PM EDT [facility] Osmolality, Calculated 302 278 - 305 mOsm/kg 11/01/2024 3:10 PM EDT [facility] EGFR 76 11/01/2024 3:10 PM EDT [facility] Comment:As of 2021, the estimated GFR [...] Final Result [facility] [address] [facility] [place] [address], [facility] * X-ray Portable Abdomen AP [...] - 100 mg/dL 11/01/2024 12:23 PM EDT [facility] Blood 11/01/2024 12:2 2 PM EDT 11/01/2024 12:23 PM EDT Semaj Mcnair III, MD POINT OF CARE TEST ORDERABLES Final Result Performing Organization Address City/[facility] Co de Phone Number [facility] [address] * (ABNORMAL) POC Glucose Monitoring Device (11/01/2024 8:50 AM EDT) POC Glucose Monitoring Device 175(H) 70 - 100 mg/dL 11/01/2024 8:51 AM EDT [facility] Blood 11/01/2024 8:50 AM EDT 11/01/2024 8:51 AM EDT Semaj Mcnair III, MD POINT OF CARE TEST ORDERABLES Final Result Performing Organization Address [facility] de Phone Number [facility] [address] [place] [address]. [address] * Tacrolimus level (11/01/2024 6:01 AM EDT) Tacrolimus (LC-MS) 7.5 3.0 - 15.0 ng/mL 11/01/2024 12:14 PM EDT [facility] Comment:Performed via liquid chromatography tandem mass spectrometry. Detection limit: 1 ng/mL. Individual target concentrations may vary due to target organ and time after transplant. This test has been developed and its performance characteristics determined by [facility] which is certified under the [...] ORDERABLES Denisse l Result Performing Organization Address City/[facility]/ZIP Co de Phone Number [facility] [address] [place] [address], [facility] * (ABNORMAL) Renal Function Panel w/EGFR (11/01/2024 6:01 AM EDT) Sodium 139 133 - 146 mmol/L 11/01/2024 6:57 AM EDT [facility] Potassium 3.3(L) 3.5 - 5.3 mmol/L 11/01/2024 6:57 AM EDT [facility] Chloride 108 98 - 110 mmol/L 11/01/2024 6:57 AM EDT [facility] CO2 22 21 - 33 mmol/L 11/01/2024 6:57 AM EDT [facility] Anion Gap 9 3 - 16 mmol/L 11/01/2024 6:57 AM EDT [facility] BUN 37(H) 7 - 25 mg/dL 11/01/2024 6:57 AM EDT [facility] Creatinine 1.30 0.60 - 1.30 mg/dL 11/01/2024 6:57 AM EDT [facility] Glucose 163(H) 70 - 100 mg/dL 11/01/2024 6:57 AM EDT [facility] Calcium 8.2(L) 8.6 - 10.3 mg/dL 11/01/2024 6:57 AM EDT [facility] Phosphorus 2.9 2.1 - 4.7 mg/dL 11/01/2024 6:57 AM EDT [facility] Albumin 3.1(L) 3.5 - 5.7 g/dL 11/01/2024 6:57 AM EDT [facility] Osmolality, Calculated 300 278 - 305 mOsm/kg 11/01/2024 6:57 AM EDT [facility] EGFR 71 11/01/2024 6:57 AM EDT [facility] Comment:As of 2021, the estimated GFR [...] 11/01/2024 6:20 AM EDT Beata Garland Evens [facility] BLOOD ORDERABLES Denisse l Result Performing Organization Address City/[facility]/ZIP Co de Phone Number [facility] [address] [facility]. [address] * Magnesium (11/01/2024 6:01 AM EDT) Magnesium 1.5 1.5 - 2.5 mg/dL 11/01/2024 6:57 AM EDT [facility] Plasma 11/01/2024 6:01 AM EDT 11/01/2024 6:20 AM EDT [facility] ORDER[facility] Denisse l Result Performing Organization Address [facility] Co de Phone Number [facility] [address] [place] [address]. [address] * (ABNORMAL) Hepatic Function Panel (11/01/2024 6:01 AM EDT) Total Bilirubin 2.0(H) 0.0 - 1.5 mg/dL 11/01/2024 6:57 AM EDT [facility] Bilirubin, Direct 1.06(H) 0.00 - 0.40 mg/dL 11/01/2024 6:57 AM EDT [facility] AST 21 13 - 39 U/L 11/01/2024 6:57 AM EDT [facility] ALT 62(H) 7 - 52 U/L 11/01/2024 6:57 AM EDT [facility] Alkaline Phosphatase 114 36 - 125 U/L 11/01/2024 6:57 AM EDT [facility] Total Protein 4.6(L) 6.4 - 8.9 g/dL 11/01/2024 6:57 AM EDT [facility] Albumin 3.1(L) 3.5 - 5.7 g/dL 11/01/2024 6:57 AM EDT [facility] Bilirubin, Indirect 0.94 0.00 - 1.10 mg/dL 11/01/2024 6:57 AM EDT [facility] Plasma 11/01/2024 6:01 AM EDT 11/01/2024 6:20 AM EDT us Betaa Hroner [employer] [facility] BLOOD ORDERABLES Denisse l Result [facility] [address] [place] [address], [facility] * (ABNORMAL) CBC (11/01/2024 6:01 AM EDT) WBC 5.9 3.8 - 10.8 10E3/uL 11/01/2024 6:29 AM EDT [facility] RBC 3.19(L) 4.20 - 5.80 10E6/uL 11/01/2024 6:29 AM EDT [facility] Hemoglobin 9.5(L) 13.2 - 17.1 g/dL 11/01/2024 6:29 AM EDT [facility] Hematocrit 27.8(L) 38.5 - 50.0 % 11/01/2024 6:29 AM EDT [facility] MCV 87.1 80.0 - 100.0 fL 11/01/2024 6:29 AM EDT [facility] MCH 29.9 27.0 - 33.0 pg 11/01/2024 6:29 AM EDT [facility] MCHC 34.3 32.0 - 36.0 g/dL 11/01/2024 6:29 AM EDT [facility] RDW 17.4(H) 11.0 - 15.0 % 11/01/2024 6:29 AM EDT [facility] Platelets 56(L) 140 - 400 10E3/uL 11/01/2024 6:29 AM EDT [facility] MPV 8.3 7.5 - 11.5 fL 11/01/2024 6:29 AM EDT [facility] Whole Blood 11/01/2024 6:01 AM EDT 11/01/2024 6:19 AM EDT Beata Horner [facility] BLOOD ORDERABLES Denisse l Result [facility] [address] [facility]. [address] * (ABNORMAL) POC Glucose Monitoring Device (10/31/2024 9:15 PM EDT) POC Glucose Monitoring Device 171(H) 70 - 100 mg/dL 10/31/2024 9:15 PM EDT [facility] Blood 10/31/2024 9:15 PM EDT 10/31/2024 9:15 PM EDT Semaj Mcnair III, MD POINT OF CARE TEST ORDERABLES Final Result Performing Organization Address City/[facility]/ZIP Co de Phone Number [facility] [address] [facility]. [address] * (ABNORMAL) POC Glucose Monitoring Device (10/31/2024 5:56 PM EDT) POC Glucose Monitoring Device 179(H) 70 - 100 mg/dL 10/31/2024 5:57 PM EDT [facility] Blood 10/31/2024 5:56 PM EDT 10/31/2024 5:57 PM EDT Semaj Mcnair III, MD POINT OF CARE TEST ORDERABLES Final Result [facility] [address] [facility]. [address] * CT Abdomen and Pelvis WO [...] Adrenal gland: No focal nodule seen. Kidneys: [place] kidneys noted with nonobstructing calcifications on the right. Findings of postsurgical changes in the left [place] kidney. Mild right hydronephrosis without an obstructive [...] Adrenal gland: No focal nodule seen. Kidneys: [place] kidneys noted with nonobstructing calcifications on theright. Findings of postsurgical changes in the left [place] kidney. Mildright hydronephrosis without an obstructive course [...] QT: 400 ms QTc: 456 ms P [place]: 49 degrees R [place]: 3 degrees T [place]: 14 degrees Diagnosis Line: NORMAL SINUS RHYTHM ^ NORMAL ECG ^ ^ Confirmed by MD JEANETTE, TORI ([id number]) on 11/02/2024 6:56:52 AM Priti Geiger [employer] ECG ORDERABLES Final Result MUSE * (ABNORMAL) Urinalysis w/Rfl to Microscopic (10/31/2024 1:18 PM EDT) Color, UA Straw Yellow,Straw 10/31/2024 1:46 PM EDT [facility] Clarity, UA Clear Clear 10/31/2024 1:46 PM EDT [facility] Specific Colbert, UA 1.013 1.005 - 1.035 10/31/2024 1:46 PM EDT [facility] pH, UA 6.5 5.0 - 8.0 10/31/2024 1:46 PM EDT [facility] Protein, UA Negative Negative mg/dL 10/31/2024 1:46 PM EDT [facility] Glucose, UA Negative Negative mg/dL 10/31/2024 1:46 PM EDT [facility] Ketones, UA Negative Negative mg/dL 10/31/2024 1:46 PM EDT [facility] Bilirubin, UA Negative Negative 10/31/2024 1:46 PM EDT [facility] Blood, UA Large(A) Negative 10/31/2024 1:46 PM EDT [facility] Nitrite, UA Negative Negative 10/31/2024 1:46 PM EDT [facility] Urobilinogen, UA <2.0 0.2 - 1.9 mg/dL 10/31/2024 1:46 PM EDT [facility] Leukocyte Esterase, UA Negative Negative 10/31/2024 1:46 PM EDT [facility] RBC, UA >100(H) 0 - 3 /HPF 10/31/2024 1:46 PM EDT [facility] WBC, UA 3 0 - 5 /HPF 10/31/2024 1:46 PM EDT [facility] Hyaline Casts, UA 3(H) 0 - 2 /LPF 10/31/2024 1:46 PM EDT [facility] Urine 10/31/2024 1:18 PM EDT 10/31/2024 1:32 PM EDT Priti Geiger CNP URINE ORDERABLES Final Result Performing Organization Address City/[facility] Co de Phone Number [facility] [address] * (ABNORMAL) Post Kidney Transplant Urine Culture (10/31/2024 1:18 PM EDT) Culture Result Enterococcus faecium, Vancomycin Resistant(A) [facility] Comment: 1,000- <10,000 cfu/mL Identified by [...] ORDERA BLES Final Result Performing Organization Address [facility] Co de Phone Number [facility] [address] [facility]. [address] * (ABNORMAL) POC Glucose Monitoring Device (10/31/2024 11:59 AM EDT) POC Glucose Monitoring Device 130(H) 70 - 100 mg/dL 10/31/2024 12:21 PM EDT [facility] Blood 10/31/2024 11:5 9 AM EDT 10/31/2024 12:21 PM EDT Semaj Mcnair III, MD POINT OF CARE TEST ORDERABLES Final Result [facility] [address] [address], [facility] * US Abdomen Limited (10/31/2024 [...] EXAM: US ABDOMEN LIMITED EXAM: US DUPLEX [id number] COMPLETE INDICATION: Post-op liver transplant COMPARISON: None [...] visualized secondary to poor acoustic windows. The [place] right kidney measures 11.6 cm in length. [...] EXAM: US ABDOMEN LIMITED EXAM: US DUPLEX [id number] COMPLETE INDICATION: Post-op liver transplant COMPARISON: None [...] well visualized secondary to poor acousticwindows. The [place] right kidney measures 11.6 cm in length. [...] 10/31/2024 10:35 AM EDT Beata Horner [facility] US ORDERABLES Final R esult * [...] 10/31/2024 10:29 AM EDT us Beata Horner [facility] US ORDERABLES Final R esult * US Duplex [id number] Comp (10/31/2024 10:19 AM EDT) Anatomical Region [...] EXAM: US ABDOMEN LIMITED EXAM: US DUPLEX [id number] COMPLETE INDICATION: Post-op liver transplant COMPARISON: None [...] visualized secondary to poor acoustic windows. The [place] right kidney measures 11.6 cm in length. [...] EXAM: US ABDOMEN LIMITED EXAM: US DUPLEX [id number] COMPLETE INDICATION: Post-op liver transplant COMPARISON: None [...] well visualized secondary to poor acousticwindows. The [place] right kidney measures 11.6 cm in length. [...] 10/31/2024 10:35 AM EDT us Beata Horner [facility] US ORDERABLES Final R esult * ECG 12-lead (MUSE) (10/31/2024 8:57 AM EDT) 10/31/2024 8:57 AM EDT Narrative MUSE - 11/01/2024 9:21 AM EDT Ventricular Rate: 83 BPM Atrial Rate: 83 BPM P-R Interval: 168 ms QRS Duration: 102 ms QT: 392 ms QTc: 460 ms P [place]: 64 degrees R [place]: -18 degrees T [place]: 7 degrees Diagnosis Line: NORMAL SINUS RHYTHM ^ NORMAL ECG ^ ^ Confirmed by MD JOE, OTIS ([id number]) on 11/01/2024 9:21:13 AM us Priti Geiger [facility] ECG ORDERABLES Final Result Performing Organization Address City/[facility]/ZIP Co de Phone Number MUSE * (ABNORMAL) POC Glucose Monitoring Device (10/31/2024 8:44 AM EDT) [facility] POC Glucose Monitoring Device 145(H) 70 - 100 mg/dL 10/31/2024 8:45 AM EDT [facility] Blood 10/31/2024 8:44 AM EDT 10/31/2024 8:44 AM EDT Semaj Mcnair III, MD POINT OF CARE TEST ORDERABLES Final Result Performing Organization Address [facility] Co de Phone Number [facility] [address] [facility]. [address] * Tacrolimus level (10/31/2024 6:40 AM EDT) [facility] Tacrolimus (LC-MS) 8.4 3.0 - 15.0 ng/mL 10/31/2024 10:05 AM EDT [facility] Comment:Performed via liquid chromatography tandem mass spectrometry. Detection limit: 1 ng/mL. Individual target concentrations may vary due to target organ and time after transplant. This test has been developed and its performance characteristics determined by [facility] which is certified under the [...] Result Performing Organization Address [facility]/ZIP Co de Phone Number [facility] [address] [facility]. [address] * (ABNORMAL) Renal Function Panel w/EGFR (10/31/2024 6:40 AM EDT) [facility] Sodium 141 133 - 146 mmol/L 10/31/2024 8:09 AM EDT [facility] Potassium 3.5 3.5 - 5.3 mmol/L 10/31/2024 8:09 AM EDT [facility] Chloride 111(H) 98 - 110 mmol/L 10/31/2024 8:09 AM EDT [facility] CO2 20(L) 21 - 33 mmol/L 10/31/2024 8:09 AM EDT [facility] Anion Gap 10 3 - 16 mmol/L 10/31/2024 8:09 AM EDT [facility] BUN 54(H) 7 - 25 mg/dL 10/31/2024 8:09 AM EDT [facility] Creatinine 1.75(H) 0.60 - 1.30 mg/dL 10/31/2024 8:09 AM EDT [facility] Glucose 136(H) 70 - 100 mg/dL 10/31/2024 8:09 AM EDT [facility] Calcium 8.7 8.6 - 10.3 mg/dL 10/31/2024 8:09 AM EDT [facility] Phosphorus 4.1 2.1 - 4.7 mg/dL 10/31/2024 8:09 AM EDT [facility] Albumin 3.2(L) 3.5 - 5.7 g/dL 10/31/2024 8:09 AM EDT [facility] Osmolality, Calculated 309(H) 278 - 305 mOsm/kg 10/31/2024 8:09 AM EDT [facility] EGFR 50 10/31/2024 8:09 AM EDT [facility] Comment:As of 2021, the estimated GFR [...] reported as >90mL/min/1.73m2. Reference: Luis Eduardo Cohn, Talai M, Olivia DC, Emerita ND, Madelyn [place], Felicia [place], et al. A Unifying Approach for GFR Estimation: Recommendations of the NKF-ASN Task Force on Reassessing the inclusion of Race in Diagnosing Kidney Disease. Am J Kidney Dis. 2020. Plasma 10/31/2024 6:40 AM EDT 10/31/2024 7:35 AM EDT Beata [place] Horner [employer] LAB BLOOD ORDERABLES Denisse l Result Performing Organization Address City/[facility]/ZIP Co de Phone Number [facility] [address] [facility]. [address] * Magnesium (10/31/2024 6:40 AM EDT) Magnesium 1.8 1.5 - 2.5 mg/dL 10/31/2024 8:09 AM EDT [facility] Plasma 10/31/2024 6:40 AM EDT 10/31/2024 7:35 AM EDT Critical access hospital [place] Horner [facility] BLOOD ORDERABLES Denisse l Result Performing Organization Address [facility] Co de Phone Number [facility] [address] [facility]. [address] * (ABNORMAL) Hepatic Function Panel (10/31/2024 6:40 AM EDT) Total Bilirubin 2.7(H) 0.0 - 1.5 mg/dL 10/31/2024 8:09 AM EDT [facility] Bilirubin, Direct 1.57(H) 0.00 - 0.40 mg/dL 10/31/2024 8:09 AM EDT [facility] AST 26 13 - 39 U/L 10/31/2024 8:09 AM EDT [facility] ALT 68(H) 7 - 52 U/L 10/31/2024 8:09 AM EDT [facility] Alkaline Phosphatase 112 36 - 125 U/L 10/31/2024 8:09 AM EDT [facility] Total Protein 4.7(L) 6.4 - 8.9 g/dL 10/31/2024 8:09 AM EDT [facility] Albumin 3.2(L) 3.5 - 5.7 g/dL 10/31/2024 8:09 AM EDT [facility] Bilirubin, Indirect 1.13(H) 0.00 - 1.10 mg/dL 10/31/2024 8:09 AM EDT [facility] Plasma 10/31/2024 6:40 AM EDT 10/31/2024 7:35 AM EDT us Beata Horner [facility] BLOOD ORDERABLES Denisse l Result [facility] [address] [place] [address], [facility] * (ABNORMAL) CBC (10/31/2024 6:40 AM EDT) WBC 6.0 3.8 - 10.8 10E3/uL 10/31/2024 8:05 AM EDT [facility] RBC 3.14(L) 4.20 - 5.80 10E6/uL 10/31/2024 8:05 AM EDT [facility] Hemoglobin 9.6(L) 13.2 - 17.1 g/dL 10/31/2024 8:05 AM EDT [facility] Hematocrit 27.5(L) 38.5 - 50.0 % 10/31/2024 8:05 AM EDT [facility] MCV 87.6 80.0 - 100.0 fL 10/31/2024 8:05 AM EDT [facility] MCH 30.7 27.0 - 33.0 pg 10/31/2024 8:05 AM EDT [facility] MCHC 35.0 32.0 - 36.0 g/dL 10/31/2024 8:05 AM EDT [facility] RDW 17.9(H) 11.0 - 15.0 % 10/31/2024 8:05 AM EDT [facility] Platelets 44(L) 140 - 400 10E3/uL 10/31/2024 8:05 AM EDT [facility] Comment: CNV Specimen checked for clots. None detected. MPV 8.9 7.5 - 11.5 fL 10/31/2024 8:05 AM EDT [facility] Whole Blood 10/31/2024 6:40 AM EDT 10/31/2024 7:34 AM EDT Beata Horner [facility] BLOOD ORDERABLES Denisse l Result [facility] [address] [facility]. [address] * (ABNORMAL) POC Glucose Monitoring Device (10/30/2024 9:01 PM EDT) POC Glucose Monitoring Device 144(H) 70 - 100 mg/dL 10/30/2024 9:02 PM EDT [facility] Blood 10/30/2024 9:01 PM EDT 10/30/2024 9:01 PM EDT us Semaj Mcnair III, MD POINT OF CARE TEST ORDERABLES Final Result Performing Organization Address City/[facility]/ZIP Co de Phone Number [facility] [address] [facility]. [address] * (ABNORMAL) POC Glucose Monitoring Device (10/30/2024 5:37 PM EDT) POC Glucose Monitoring Device 124(H) 70 - 100 mg/dL 10/30/2024 5:47 PM EDT [facility] LAB Blood 10/30/2024 5:37 PM EDT 10/30/2024 5:47 PM EDT Semaj Mcnair III, MD POINT OF CARE TEST ORDERABLES Final Result [facility] [address] [facility]. [address] * (ABNORMAL) POC Glucose Monitoring Device (10/30/2024 7:26 AM EDT) POC Glucose Monitoring Device 150(H) 70 - 100 mg/dL 10/30/2024 7:27 AM EDT [facility] Blood 10/30/2024 7:26 AM EDT 10/30/2024 7:27 AM EDT Semaj Mcnair III, MD POINT OF CARE TEST ORDERABLES Final Result Performing Organization Address [facility] Co de Phone Number [facility] [address] * Tacrolimus level (10/30/2024 7:13 AM EDT) Tacrolimus (LC-MS) 9.5 3.0 - 15.0 ng/mL 10/30/2024 2:53 PM EDT [facility] Comment:Performed via liquid chromatography tandem mass spectrometry. Detection limit: 1 ng/mL. Individual target concentrations may vary due to target organ and time after transplant. This test has been developed and its performance characteristics determined by [facility] which is certified under the [...] EDT 10/30/2024 7:26 AM EDT Priti Geiger [facility] BLOOD ORDERABLES Final Re sult Performing Organization Address [facility] Co de Phone Number [facility] [address] [facility]. [address] * ECG 12-lead (MUSE) (10/30/2024 6:51 AM EDT) 10/30/2024 6:51 AM EDT Narrative MUSE - 11/01/2024 9:21 AM EDT Ventricular Rate: 92 BPM Atrial Rate: 92 BPM P-R Interval: 174 ms QRS Duration: 96 ms QT: 376 ms QTc: 464 ms P [place]: 54 degrees R [place]: -24 degrees T [place]: 11 degrees Diagnosis Line: NORMAL SINUS RHYTHM ^ NORMAL ECG ^ ^ Confirmed by MD JOE, OTIS ([id number]) on 11/01/2024 9:21:09 AM Priti Geiger [employer] ECG ORDERABLES Final Result MUSE * (ABNORMAL) Renal Function Panel w/EGFR (10/30/2024 5:41 AM EDT) Sodium 140 133 - 146 mmol/L 10/30/2024 6:18 AM EDT [facility] Potassium 3.8 3.5 - 5.3 mmol/L 10/30/2024 6:18 AM EDT [facility] Chloride 111(H) 98 - 110 mmol/L 10/30/2024 6:18 AM EDT [facility] CO2 17(L) 21 - 33 mmol/L 10/30/2024 6:18 AM EDT [facility] Anion Gap 12 3 - 16 mmol/L 10/30/2024 6:18 AM EDT [facility] BUN 62(H) 7 - 25 mg/dL 10/30/2024 6:18 AM EDT [facility] Creatinine 1.96(H) 0.60 - 1.30 mg/dL 10/30/2024 6:18 AM EDT [facility] Glucose 116(H) 70 - 100 mg/dL 10/30/2024 6:18 AM EDT [facility] Calcium 9.0 8.6 - 10.3 mg/dL 10/30/2024 6:18 AM EDT [facility] Phosphorus 4.6 2.1 - 4.7 mg/dL 10/30/2024 6:18 AM EDT [facility] Albumin 3.2(L) 3.5 - 5.7 g/dL 10/30/2024 6:18 AM EDT [facility] Osmolality, Calculated 309(H) 278 - 305 mOsm/kg 10/30/2024 6:18 AM EDT [facility] EGFR 43 10/30/2024 6:18 AM EDT [facility] Comment:As of 2021, the estimated GFR [...] 5:41 AM EDT 10/30/2024 5:47 AM EDT [employer] BLOOD ORDERABLES Denisse l Result Performing Organization Address City/[facility]/ZIP Co de Phone Number [facility] [address] [facility]. [address] * Magnesium (10/30/2024 5:41 AM EDT) Magnesium 2.2 1.5 - 2.5 mg/dL 10/30/2024 6:18 AM EDT [facility] Plasma 10/30/2024 5:41 AM EDT 10/30/2024 5:47 AM EDT [facility] BLOOD ORDERABLES Denisse l Result [facility] [address] [facility]. [address] * (ABNORMAL) Hepatic Function Panel (10/30/2024 5:41 AM EDT) Total Bilirubin 3.6(H) 0.0 - 1.5 mg/dL 10/30/2024 6:18 AM EDT [facility] Bilirubin, Direct 1.95(H) 0.00 - 0.40 mg/dL 10/30/2024 6:18 AM EDT [facility] AST 33 13 - 39 U/L 10/30/2024 6:18 AM EDT [facility] ALT 71(H) 7 - 52 U/L 10/30/2024 6:18 AM EDT [facility] Alkaline Phosphatase 80 36 - 125 U/L 10/30/2024 6:18 AM EDT [facility] Total Protein 4.8(L) 6.4 - 8.9 g/dL 10/30/2024 6:18 AM EDT [facility] Albumin 3.2(L) 3.5 - 5.7 g/dL 10/30/2024 6:18 AM EDT [facility] Bilirubin, Indirect 1.65(H) 0.00 - 1.10 mg/dL 10/30/2024 6:18 AM EDT [facility] Plasma 10/30/2024 5:41 AM EDT 10/30/2024 5:47 AM EDT Beata Horner [facility] BLOOD ORDERABLES Denisse valle Result [facility] [address] [place] [address], [facility] * (ABNORMAL) CBC (10/30/2024 5:41 AM EDT) WBC 8.1 3.8 - 10.8 10E3/uL 10/30/2024 8:06 AM EDT [facility] RBC 3.29(L) 4.20 - 5.80 10E6/uL 10/30/2024 8:06 AM EDT [facility] Hemoglobin 10.1(L) 13.2 - 17.1 g/dL 10/30/2024 8:06 AM EDT [facility] Hematocrit 28.8(L) 38.5 - 50.0 % 10/30/2024 8:06 AM EDT [facility] MCV 87.6 80.0 - 100.0 fL 10/30/2024 8:06 AM EDT [facility] MCH 30.6 27.0 - 33.0 pg 10/30/2024 8:06 AM EDT [facility] MCHC 34.9 32.0 - 36.0 g/dL 10/30/2024 8:06 AM EDT [facility] RDW 18.1(H) 11.0 - 15.0 % 10/30/2024 8:06 AM EDT [facility] Platelets 44(L) 140 - 400 10E3/uL 10/30/2024 8:06 AM EDT [facility] Comment: CNV Specimen checked for clots. None detected. MPV 8.3 7.5 - 11.5 fL 10/30/2024 8:06 AM EDT [facility] Whole Blood 10/30/2024 5:41 AM EDT 10/30/2024 5:50 AM EDT Beata Horner [facility] BLOOD ORDERABLES Denisse l Result [facility] [address] [facility]. [address] * (ABNORMAL) POC Glucose Monitoring Device (10/29/2024 10:18 PM EDT) POC Glucose Monitoring Device 140(H) 70 - 100 mg/dL 10/29/2024 10:18 PM EDT [facility] Blood 10/29/2024 10:1 8 PM EDT 10/29/2024 10:18 PM EDT Semaj Mcnair III, MD POINT OF CARE TEST ORDERABLES Final Result Performing Organization Address [facility] Co de Phone Number [facility] [address] [facility]. [address] * (ABNORMAL) POC Glucose Monitoring Device (10/29/2024 6:42 PM EDT) POC Glucose Monitoring Device 152(H) 70 - 100 mg/dL 10/29/2024 6:43 PM EDT [facility] Blood 10/29/2024 6:42 PM EDT 10/29/2024 6:43 PM EDT Semaj Mcnair III, MD POINT OF CARE TEST ORDERABLES Final Result Performing Organization Address City/[facility]/ZIP Co de Phone Number [facility] [address] [facility]. [address] * (ABNORMAL) POC Glucose Monitoring Device (10/29/2024 11:35 AM EDT) Pathologist [facility] POC Glucose Monitoring Device 130(H) 70 - 100 mg/dL 10/29/2024 11:36 AM EDT [facility] Blood 10/29/2024 11:3 5 AM EDT 10/29/2024 11:36 AM EDT Semaj Mcnair III, MD POINT OF CARE TEST ORDERABLES Final Result Performing Organization Address City/[facility] Co de Phone Number [facility] [address] * ECG 12 lead (MUSE) (10/29/2024 9:34 AM EDT) 10/29/2024 9:34 AM EDT Narrative MUSE - 10/29/2024 10:34 PM EDT Ventricular Rate: 97 BPM Atrial Rate: 97 BPM P-R Interval: 186 ms QRS Duration: 104 ms QT: 382 ms QTc: 485 ms P [place]: 54 degrees R [place]: -21 degrees T [place]: 1 degrees Diagnosis Line: NORMAL SINUS RHYTHM ^ NORMAL ECG ^ Confirmed by JORGE MACIAS ([id number]) on 10/29/2024 10:34:50 PM Afshan Bear MD ECG ORDERABLES Final Result Performing Organization Address [facility] de Phone Number MUSE * Tacrolimus level (10/29/2024 8:08 AM EDT) [facility] Tacrolimus (LC-MS) 10.4 3.0 - 15.0 ng/mL 10/29/2024 2:07 PM EDT [facility] Comment:Performed via liquid chromatography tandem mass spectrometry. Detection limit: 1 ng/mL. Individual target concentrations may vary due to target organ and time after transplant. This test has been developed and its performance characteristics determined by [facility] which is certified under the [...] EDT 10/29/2024 8:21 AM EDT Priti Geiger [employer] LAB BLOOD ORDERABLES Final Re sult Performing Organization Address City/[facility]/ZIP Co de Phone Number [facility] [address] [place] [address], [facility] * Prepare RBC, leukoreduced, 1 Units (10/29/2024 6:16 AM EDT) Product Code V5295F71 HCLL Unit Number [id number] HCLL Dispense Status Presumed Transfused_PT HCLL Blood Expiration Date [id number] HCLL Coding System [id number] HCLL Blood Bank Product Shay Plata MD BLOOD BANK PRODUCT O RDERABLES Final Result Performing Organization Address City/[facility]/ZIP Co de Phone Number HCLL * Prepare RBC, leukoreduced, 1 Units (10/29/2024 6:15 AM EDT) Product Code P8525B17 HCLL Unit Number [id number] HCLL Dispense Status Presumed Transfused_PT HCLL Blood Expiration Date [id number] HCLL Coding System [id number] HCLL Blood Bank Product Carlos Marks MD BLOOD BANK PRODUCT ORDERABL ES Final Result Performing Organization Address City/[facility]/ZIP Co de Phone Number HCLL * Prepare RBC, leukoreduced, 1 Units (10/29/2024 6:15 AM EDT) Product Code X2552V36 HCLL Unit Number [id number] HCLL Dispense Status Presumed Transfused_PT HCLL Blood Expiration Date [id number] HCLL Coding System [id number] HCLL Blood Bank Product John Moreno MD BLOOD BANK PRODUCT ORDERABLE S Final Result HCLL * (ABNORMAL) Renal Function Panel w/EGFR (10/29/2024 5:07 AM EDT) Sodium 144 133 - 146 mmol/L 10/29/2024 5:49 AM EDT [facility] Potassium 3.8 3.5 - 5.3 mmol/L 10/29/2024 5:49 AM EDT [facility] Chloride 113(H) 98 - 110 mmol/L 10/29/2024 5:49 AM EDT [facility] CO2 17(L) 21 - 33 mmol/L 10/29/2024 5:49 AM EDT [facility] Anion Gap 14 3 - 16 mmol/L 10/29/2024 5:49 AM EDT [facility] BUN 57(H) 7 - 25 mg/dL 10/29/2024 5:49 AM EDT [facility] Creatinine 1.93(H) 0.60 - 1.30 mg/dL 10/29/2024 5:49 AM EDT [facility] Glucose 110(H) 70 - 100 mg/dL 10/29/2024 5:49 AM EDT [facility] Calcium 9.3 8.6 - 10.3 mg/dL 10/29/2024 5:49 AM EDT [facility] Phosphorus 4.8(H) 2.1 - 4.7 mg/dL 10/29/2024 5:49 AM EDT [facility] Albumin 3.5 3.5 - 5.7 g/dL 10/29/2024 5:49 AM EDT [facility] Osmolality, Calculated 314(H) 278 - 305 mOsm/kg 10/29/2024 5:49 AM EDT [facility] EGFR 44 10/29/2024 5:49 AM EDT [facility] Comment:As of 2021, the estimated GFR [...] 5:07 AM EDT 10/29/2024 5:13 AM EDT [employer] [facility] BLOOD ORDERABLES Denisse l Result [facility] [address] [facility]. [address] * Magnesium (10/29/2024 5:07 AM EDT) Magnesium 2.1 1.5 - 2.5 mg/dL 10/29/2024 5:49 AM EDT [facility] Plasma 10/29/2024 5:07 AM EDT 10/29/2024 5:13 AM EDT [employer] Ev[employer] [facility] BLOOD ORDERABLES Denisse l Result Performing Organization Address City/[facility]/ZIP Co de Phone Number [facility] [address] [facility]. [address] * (ABNORMAL) Hepatic Function Panel (10/29/2024 5:07 AM EDT) Total Bilirubin 4.2(H) 0.0 - 1.5 mg/dL 10/29/2024 5:49 AM EDT [facility] Bilirubin, Direct 2.85(H) 0.00 - 0.40 mg/dL 10/29/2024 5:49 AM EDT [facility] AST 31 13 - 39 U/L 10/29/2024 5:49 AM EDT [facility] ALT 88(H) 7 - 52 U/L 10/29/2024 5:49 AM EDT [facility] Alkaline Phosphatase 51 36 - 125 U/L 10/29/2024 5:49 AM EDT [facility] Total Protein 5.2(L) 6.4 - 8.9 g/dL 10/29/2024 5:49 AM EDT [facility] Albumin 3.5 3.5 - 5.7 g/dL 10/29/2024 5:49 AM EDT [facility] Bilirubin, Indirect 1.35(H) 0.00 - 1.10 mg/dL 10/29/2024 5:49 AM EDT [facility] Plasma 10/29/2024 5:07 AM EDT 10/29/2024 5:13 AM EDT us Beata Horner [employer] LAB BLOOD ORDERABLES Denisse valle Result [facility] [address] [place] [address], [facility] * (ABNORMAL) CBC (10/29/2024 5:07 AM EDT) WBC 7.8 3.8 - 10.8 10E3/uL 10/29/2024 5:38 AM EDT [facility] RBC 3.05(L) 4.20 - 5.80 10E6/uL 10/29/2024 5:38 AM EDT [facility] Hemoglobin 9.0(L) 13.2 - 17.1 g/dL 10/29/2024 5:38 AM EDT [facility] Hematocrit 26.7(L) 38.5 - 50.0 % 10/29/2024 5:38 AM EDT [facility] MCV 87.4 80.0 - 100.0 fL 10/29/2024 5:38 AM EDT [facility] MCH 29.7 27.0 - 33.0 pg 10/29/2024 5:38 AM EDT [facility] MCHC 33.9 32.0 - 36.0 g/dL 10/29/2024 5:38 AM EDT [facility] RDW 18.3(H) 11.0 - 15.0 % 10/29/2024 5:38 AM EDT [facility] Platelets 41(L) 140 - 400 10E3/uL 10/29/2024 5:38 AM EDT [facility] Comment: CNV Specimen checked for clots. None detected. MPV 7.5 7.5 - 11.5 fL 10/29/2024 5:38 AM EDT [facility] Whole Blood 10/29/2024 5:07 AM EDT 10/29/2024 5:13 AM EDT us Beata Dada Horner [facility] BLOOD ORDERABLES Denisse l Result [facility] [address] [place] [address], [facility] * (ABNORMAL) TEG-Bypass/ECMO/Liver HN (Factor function, Platelet/Fibrin Clot Strength w/Clot Breakdown, Heparinase In All Channels) (10/29/2024 5:07 AM EDT) Citrated Kaolin Reaction Time (TEGECMOLIVER) 8.9 4.6 - 9.1 minutes 10/29/2024 7:04 AM EDT [facility] Citrated Kaolin W/Heparinase Reaction Time (TEGECMOLIVER) 7.4 4.3 - 8.3 minutes 10/29/2024 7:04 AM EDT [facility] Citrated Kaolin Maximum Amplitude (TEGECMOLIVER) 52.9 52.0 - 69.0 mm 10/29/2024 7:04 AM EDT [facility] Citrated Functional Fibrinogen W/Heparinase Maximum Amplitude(TEGEC MOLIVER) 20.7 15.0 - 34.0 mm 10/29/2024 7:04 AM EDT [facility] Citrated Rapid Teg W/Heparinase Maximum Amplitude (TEGECMOLIVER) 49.7(L) 53.0 - 69.0 mm 10/29/2024 7:04 AM EDT [facility] Citrated Kaolin w/Heparinase Percent Lysis (TEGECMOLIVER) 0.0 0.0 - 3.2 % 10/29/2024 7:04 AM EDT [facility] Whole Blood (Citrate) 10/29/2024 5:07 AM EDT 10/29/2024 5:10 AM EDT Kemar Sahni MD LAB BLOOD ORDERABLES Final Result [facility] [address] [facility]. [address] * (ABNORMAL) TEG-Bypass/ECMO/Liver HN (Factor function, Platelet/Fibrin Clot Strength w/Clot Breakdown, Heparinase In All Channels) (10/28/2024 11:55 PM EDT) [facility] Citrated Kaolin Reaction Time (TEGECMOLIVER) 8.6 4.6 - 9.1 minutes 10/29/2024 2:01 AM EDT [facility] Citrated Kaolin W/Heparinase Reaction Time (TEGECMOLIVER) 8.7(H) 4.3 - 8.3 minutes 10/29/2024 2:01 AM EDT [facility] Citrated Kaolin Maximum Amplitude (TEGECMOLIVER) 47.9(L) 52.0 - 69.0 mm 10/29/2024 2:01 AM EDT [facility] Citrated Functional Fibrinogen W/Heparinase Maximum Amplitude(TEGEC MOLIVER) 22.0 15.0 - 34.0 mm 10/29/2024 2:01 AM EDT [facility] Citrated Rapid Teg W/Heparinase Maximum Amplitude (TEGECMOLIVER) 45.9(L) 53.0 - 69.0 mm 10/29/2024 2:01 AM EDT [facility] Citrated Kaolin w/Heparinase Percent Lysis (TEGECMOLIVER) 0.0 0.0 - 3.2 % 10/29/2024 2:01 AM EDT [facility] Whole Blood (Citrate) 10/28/2024 11:55 PM EDT 10/28/2024 11:58 PM EDT Kemar Sahni MD LAB BLOOD ORDERABLES Final Result [facility] [address] * (ABNORMAL) CBC, STAT (10/28/2024 8:04 PM EDT) WBC 3.9 3.8 - 10.8 10E3/uL 10/28/2024 8:36 PM EDT [facility] RBC 2.66(L) 4.20 - 5.80 10E6/uL 10/28/2024 8:36 PM EDT [facility] Hemoglobin 8.0(L) 13.2 - 17.1 g/dL 10/28/2024 8:36 PM EDT [facility] Hematocrit 23.0(L) 38.5 - 50.0 % 10/28/2024 8:36 PM EDT [facility] MCV 86.4 80.0 - 100.0 fL 10/28/2024 8:36 PM EDT [facility] MCH 29.9 27.0 - 33.0 pg 10/28/2024 8:36 PM EDT [facility] MCHC 34.6 32.0 - 36.0 g/dL 10/28/2024 8:36 PM EDT [facility] RDW 18.6(H) 11.0 - 15.0 % 10/28/2024 8:36 PM EDT [facility] Platelets 29(L) 140 - 400 10E3/uL 10/28/2024 8:36 PM EDT [facility] Comment: CNV Specimen checked for clots. None detected. MPV 7.8 7.5 - 11.5 fL 10/28/2024 8:36 PM EDT [facility] Whole Blood 10/28/2024 8:04 PM EDT 10/28/2024 8:14 PM EDT us Carlos Marks MD LAB BLOOD ORDERABLES Final Result [facility] [address] [place] [address], [facility] * (ABNORMAL) POC Glucose Monitoring Device (10/28/2024 8:03 PM EDT) POC Glucose Monitoring Device 122(H) 70 - 100 mg/dL 10/28/2024 8:04 PM EDT [facility] Blood 10/28/2024 8:03 PM EDT 10/28/2024 8:04 PM EDT Semaj Mcnair III, MD POINT OF CARE TEST ORDERABLES Final Result [facility] [address] * (ABNORMAL) TEG-Bypass/ECMO/Liver HN (Factor function, Platelet/Fibrin Clot Strength w/Clot Breakdown, Heparinase In All Channels) (10/28/2024 6:39 PM EDT) [facility] Citrated Kaolin Reaction Time (TEGECMOLIVER) 9.0 4.6 - 9.1 minutes 10/28/2024 7:50 PM EDT [facility] Citrated Kaolin W/Heparinase Reaction Time (TEGECMOLIVER) 8.3 4.3 - 8.3 minutes 10/28/2024 7:50 PM EDT [facility] Citrated Kaolin Maximum Amplitude (TEGECMOLIVER) 47.6(L) 52.0 - 69.0 mm 10/28/2024 7:50 PM EDT [facility] Citrated Functional Fibrinogen W/Heparinase Maximum Amplitude(TEGEC MOLIVER) 20.4 15.0 - 34.0 mm 10/28/2024 7:50 PM EDT [facility] Citrated Rapid Teg W/Heparinase Maximum Amplitude (TEGECMOLIVER) 44.0(L) 53.0 - 69.0 mm 10/28/2024 7:50 PM EDT [facility] Citrated Kaolin w/Heparinase Percent Lysis (TEGECMOLIVER) 0.0 0.0 - 3.2 % 10/28/2024 7:50 PM EDT [facility] Whole Blood (Citrate) 10/28/2024 6:39 PM EDT 10/28/2024 6:42 PM EDT us Kemar Sahni MD LAB BLOOD ORDERABLES Final Result [facility] [address] [facility]. [address] * (ABNORMAL) POC Glucose Monitoring Device (10/28/2024 5:31 PM EDT) POC Glucose Monitoring Device 130(H) 70 - 100 mg/dL 10/28/2024 5:31 PM EDT [facility] Blood 10/28/2024 5:31 PM EDT 10/28/2024 5:31 PM EDT us Semaj Mcnair III, MD POINT OF CARE TEST ORDERABLES Final Result Performing Organization Address City/[facility]/ZIP Co de Phone Number [facility] [address] * Transfuse RBC Transfusion Rate: Per dept routine (10/28/2024 5:23 PM EDT) us Shay Plata MD NURSING TREATMENT OR DERABLES - BLOOD ADMIN Final Result Performing Organization Address [facility] Co de Phone Number EXTERNAL * Transfuse RBC Transfusion Rate: Per dept routine, 1 Units (10/28/2024 5:23 PM EDT) us Shay Plata MD NURSING TREATMENT OR DERABLES - BLOOD ADMIN Final Result Performing Organization Address [facility] Co de Phone Number EXTERNAL * [...] EXAM: US ABDOMEN LIMITED EXAM: US DUPLEX [id number] COMPLETE INDICATION: Post-op liver transplant DATE: 10/28/2024 [...] retrohepatic inferior vena cava is patent. The [place] right kidney is partially visualized. A prominent [...] EXAM: US ABDOMEN LIMITED EXAM: US DUPLEX [id number] COMPLETE INDICATION: Post-op liver transplant DATE: 10/28/2024 [...] retrohepatic inferior vena cava is patent. The [place] right kidney is partially visualized. A prominent [...] 4:42 PM EDT us Shay Plata MD [facility] [place] US ORDERABLES Fi nal Result * US Duplex Dtp-Vpm-Ntazmji Comp (10/28/2024 4:23 PM EDT) Anatomical Region [...] EXAM: US ABDOMEN LIMITED EXAM: US DUPLEX [id number] COMPLETE INDICATION: Post-op liver transplant DATE: 10/28/2024 [...] retrohepatic inferior vena cava is patent. [place] right kidney is partially visualized. A prominent [...] EXAM: US ABDOMEN LIMITED EXAM: US DUPLEX [id number] COMPLETE INDICATION: Post-op liver transplant DATE: 10/28/2024 [...] retrohepatic inferior vena cava is patent. [place] right kidney is partially visualized. A prominent [...] 4:42 PM EDT Shay Plata MD [facility] ORDERABLES Fi nal Result * (ABNORMAL) CBC, STAT (10/28/2024 2:49 PM EDT) [facility] Signature WBC 4.0 3.8 - 10.8 10E3/uL 10/28/2024 3:07 PM EDT [facility] RBC 2.44(L) 4.20 - 5.80 10E6/uL 10/28/2024 3:07 PM EDT [facility] Hemoglobin 7.5(L) 13.2 - 17.1 g/dL 10/28/2024 3:07 PM EDT [facility] Hematocrit 21.4(L) 38.5 - 50.0 % 10/28/2024 3:07 PM EDT [facility] MCV 87.6 80.0 - 100.0 fL 10/28/2024 3:07 PM EDT [facility] MCH 30.6 27.0 - 33.0 pg 10/28/2024 3:07 PM EDT [facility] MCHC 34.9 32.0 - 36.0 g/dL 10/28/2024 3:07 PM EDT [facility] RDW 18.4(H) 11.0 - 15.0 % 10/28/2024 3:07 PM EDT [facility] Platelets 30(L) 140 - 400 10E3/uL 10/28/2024 3:07 PM EDT [facility] Comment: CNV Specimen checked for clots. None detected. MPV 7.7 7.5 - 11.5 fL 10/28/2024 3:07 PM EDT [facility] Whole Blood 10/28/2024 2:49 PM EDT 10/28/2024 2:53 PM EDT us Carlos Marks MD LAB BLOOD ORDERABLES Final Result Performing Organization Address City/State/[facility] Co de Phone Number [facility] [address] * ECG 12 lead (MUSE) (10/28/2024 1:22 PM EDT) 10/28/2024 1:22 PM EDT Narrative MUSE - 10/29/2024 10:34 PM EDT Ventricular Rate: 104 BPM Atrial Rate: 104 BPM P-R Interval: 172 ms QRS Duration: 90 ms QT: 354 ms QTc: 465 ms P [place]: 58 degrees R [place]: -19 degrees T [place]: 38 degrees Diagnosis Line: SINUS TACHYCARDIA ^ OTHERWISE NORMAL ECG ^ ^ Confirmed by JORGE MACIAS ([id number]) on 10/29/2024 10:34:22 PM us Hillary Fernandes PharmD ECG ORDERABLES Final Res ult MUSE * (ABNORMAL) POC Glucose Monitoring Device (10/28/2024 12:54 PM EDT) POC Glucose Monitoring Device 119(H) 70 - 100 mg/dL 10/28/2024 12:55 PM EDT [facility] Blood 10/28/2024 12:5 4 PM EDT 10/28/2024 12:55 PM EDT us Semaj Mcnair III, MD POINT OF CARE TEST ORDERABLES Final Result Performing Organization Address City/[facility]/ZIP Co de Phone Number [facility] [address] * Transfuse RBC Transfusion Rate: Per dept routine (10/28/2024 12:31 PM EDT) us Carlos Marks MD NURSING TREATMENT ORDERABLE S - BLOOD ADMIN Final Result Performing Organization Address City/[facility]/ZIP Co de Phone Number EXTERNAL * Transfuse RBC Transfusion Rate: Per dept routine, 1 Units (10/28/2024 12:31 PM EDT) us Carlos Marks MD NURSING TREATMENT ORDERABLE S - BLOOD ADMIN Final Result Performing Organization Address City/[facility] Co de Phone Number EXTERNAL * Protime-INR, STAT (10/28/2024 11:09 AM EDT) Protime 14.3 12.1 - 15.1 seconds 10/28/2024 11:29 AM EDT [facility] INR 1.1 0.9 - 1.1 10/28/2024 11:29 AM EDT [facility] Comment: RECOMMENDED THERAPEUTIC RANGES USING INR : Stable oral anticoagulant therapy: 2.0 - 3.0 Mechanical prosthetic heart valve: 2.5 - 3.5 Recurrent acute myocardial infarction: 2.5 - 3.5 Plasma 10/28/2024 11:0 9 AM EDT 10/28/2024 11:16 AM EDT us Carlos Marks MD LAB BLOOD ORDERABLES Final Result Performing Organization Address [facility] Co de Phone Number [facility] [address] * (ABNORMAL) Lactic Acid, STAT (10/28/2024 11:09 AM EDT) Lactate 0.3(L) 0.5 - 2.2 mmol/L 10/28/2024 11:37 AM EDT [facility] Plasma 10/28/2024 11:0 9 AM EDT 10/28/2024 11:15 AM EDT us Carlos Marks MD LAB BLOOD ORDERABLES Final Result Performing Organization Address [facility] Co de Phone Number [facility] [address] [facility]. [address] * Magnesium, STAT (10/28/2024 11:09 AM EDT) Magnesium 2.1 1.5 - 2.5 mg/dL 10/28/2024 11:47 AM EDT [facility] Plasma 10/28/2024 11:0 9 AM EDT 10/28/2024 11:16 AM EDT us Carlos Marks MD LAB BLOOD ORDERABLES Final Result Performing Organization Address [facility] Co de Phone Number [facility] [address] [facility]. [address] * (ABNORMAL) Renal Function Panel w/EGFR, STAT (10/28/2024 11:09 AM EDT) Sodium 144 133 - 146 mmol/L 10/28/2024 11:47 AM EDT [facility] Potassium 3.4(L) 3.5 - 5.3 mmol/L 10/28/2024 11:47 AM EDT [facility] Chloride 112(H) 98 - 110 mmol/L 10/28/2024 11:47 AM EDT [facility] CO2 22 21 - 33 mmol/L 10/28/2024 11:47 AM EDT [facility] Anion Gap 10 3 - 16 mmol/L 10/28/2024 11:47 AM EDT [facility] BUN 57(H) 7 - 25 mg/dL 10/28/2024 11:47 AM EDT [facility] Creatinine 2.01(H) 0.60 - 1.30 mg/dL 10/28/2024 11:47 AM EDT [facility] Glucose 108(H) 70 - 100 mg/dL 10/28/2024 11:47 AM EDT [facility] Calcium 8.8 8.6 - 10.3 mg/dL 10/28/2024 11:47 AM EDT [facility] Phosphorus 4.0 2.1 - 4.7 mg/dL 10/28/2024 11:47 AM EDT [facility] Albumin 3.3(L) 3.5 - 5.7 g/dL 10/28/2024 11:47 AM EDT [facility] Osmolality, Calculated 314(H) 278 - 305 mOsm/kg 10/28/2024 11:47 AM EDT [facility] EGFR 42 10/28/2024 11:47 AM [facility] [...] Final Result [facility] [address] * (ABNORMAL) TEG-Bypass/ECMO/Liver HN (Factor function, Platelet/Fibrin Clot Strength w/Clot Breakdown, Heparinase In All Channels) (10/28/2024 11:09 AM EDT) [facility] Citrated Kaolin Reaction Time (TEGECMOLIVER) 9.2(H) 4.6 - 9.1 minutes 10/28/2024 12:30 PM EDT [facility] Citrated Kaolin W/Heparinase Reaction Time (TEGECMOLIVER) 9.6(H) 4.3 - 8.3 minutes 10/28/2024 12:30 PM EDT [facility] Citrated Kaolin Maximum Amplitude (TEGECMOLIVER) 51.2(L) 52.0 - 69.0 mm 10/28/2024 12:30 PM EDT [facility] Citrated Functional Fibrinogen W/Heparinase Maximum Amplitude(TEGEC MOLIVER) 21.6 15.0 - 34.0 mm 10/28/2024 12:30 PM EDT [facility] Citrated Rapid Teg W/Heparinase Maximum Amplitude (TEGECMOLIVER) 49.3(L) 53.0 - 69.0 mm 10/28/2024 12:30 PM EDT [facility] Citrated Kaolin w/Heparinase Percent Lysis (TEGECMOLIVER) 0.0 0.0 - 3.2 % 10/28/2024 12:30 PM EDT [facility] Whole Blood (Citrate) 10/28/2024 11:09 AM EDT 10/28/2024 11:14 AM EDT Kemar Sahni MD LAB BLOOD ORDERABLES Final Result [facility] [address] * (ABNORMAL) CBC (10/28/2024 10:21 AM EDT) WBC 4.1 3.8 - 10.8 10E3/uL 10/28/2024 10:41 AM EDT [facility] RBC 2.30(L) 4.20 - 5.80 10E6/uL 10/28/2024 10:41 AM EDT [facility] Hemoglobin 7.1(L) 13.2 - 17.1 g/dL 10/28/2024 10:41 AM EDT [facility] Hematocrit 20.4(L) 38.5 - 50.0 % 10/28/2024 10:41 AM EDT [facility] MCV 88.5 80.0 - 100.0 fL 10/28/2024 10:41 AM EDT [facility] MCH 30.7 27.0 - 33.0 pg 10/28/2024 10:41 AM EDT [facility] MCHC 34.7 32.0 - 36.0 g/dL 10/28/2024 10:41 AM EDT [facility] RDW 18.7(H) 11.0 - 15.0 % 10/28/2024 10:41 AM EDT [facility] Platelets 37(L) 140 - 400 10E3/uL 10/28/2024 10:41 AM EDT [facility] Comment: CNV Specimen checked for clots. None detected. MPV 7.6 7.5 - 11.5 fL 10/28/2024 10:41 AM EDT [facility] Whole Blood 10/28/2024 10:2 1 AM EDT 10/28/2024 10:29 AM EDT us Carlos Marks MD LAB BLOOD ORDERABLES Final Result [facility] [address] [place] [address], [facility] * POC Glucose Monitoring Device (10/28/2024 9:07 AM EDT) POC Glucose Monitoring Device 97 70 - 100 mg/dL 10/28/2024 9:08 AM EDT [facility] Blood 10/28/2024 9:07 AM EDT 10/28/2024 9:08 AM EDT Semaj Mcnair III, MD POINT OF CARE TEST ORDERABLES Final Result Performing Organization Address [facility] Co de Phone Number [facility] [address] [facility]. [address] * (ABNORMAL) Tacrolimus level (10/28/2024 8:20 AM EDT) Pathologist [facility] Tacrolimus (LC-MS) <1.0(L) 3.0 - 15.0 ng/mL 10/28/2024 2:02 PM EDT [facility] Comment:Performed via liquid chromatography tandem mass spectrometry. Detection limit: 1 ng/mL. Individual target concentrations may vary due to target organ and time after transplant. This test has been developed and its performance characteristics determined by [facility] which is certified under the [...] EDT 10/28/2024 8:29 AM EDT Priti Geiger [facility] BLOOD ORDERABLES Final Re sult Performing Organization Address [facility] Co de Phone Number [facility] [address] [facility]. [address] * (ABNORMAL) POC Glucose Monitoring Device (10/28/2024 8:10 AM EDT) POC Glucose Monitoring Device 102(H) 70 - 100 mg/dL 10/28/2024 8:11 AM EDT [facility] Blood 10/28/2024 8:10 AM EDT 10/28/2024 8:11 AM EDT Semaj Mcnair III, MD POINT OF CARE TEST ORDERABLES Final Result Performing Organization Address [facility] Co de Phone Number [facility] [address] * POC Glucose Monitoring Device (10/28/2024 6:17 AM EDT) POC Glucose Monitoring Device 100 70 - 100 mg/dL 10/28/2024 6:18 AM EDT [facility] Blood 10/28/2024 6:17 AM EDT 10/28/2024 6:18 AM EDT Semaj Mcnair III, MD POINT OF CARE TEST ORDERABLES Final Result Performing Organization Address [facility] de Phone Number [facility] [address] [place] [facility]. [address] * Prepare Platelets, leukoreduced (10/28/2024 6:15 AM EDT) Product Code S5851V05 HCLL Unit Number [id number] HCLL Dispense Status Presumed Transfused_PT HCLL Blood Expiration Date HCLL Coding System [id number] HCLL Product Code P1835E31 HCLL Unit Number [id number] HCLL Dispense Status Presumed Transfused_PT HCLL Blood Expiration Date HCLL Coding System [id number] HCLL us Attending Provider Unknown BLOOD BANK PRODUCT OR DERABLES Final Result Performing Organization Address [facility] Co de Phone Number HCLL * Prepare Fresh Frozen Plasma (10/28/2024 6:15 AM EDT) Product Code Z8284D47 HCLL Unit Number [id number] HCLL Dispense Status Released from Crossmatch_RE HCLL Blood Expiration Date HCLL Coding System KMJP100 HCLL Product Code M3387C51 HCLL Unit Number [id number] HCLL Dispense Status Presumed Transfused_PT HCLL Blood Expiration Date HCLL Coding System ZRUA147 HCLL Product Code Y1264P81 HCLL Unit Number [id number] HCLL Dispense Status Released from Crossmatch_RE HCLL Blood Expiration Date HCLL Coding System TMVY622 HCLL Product Code X9533J27 HCLL Unit Number [id number] HCLL Dispense Status Presumed Transfused_PT HCLL Blood Expiration Date HCLL Coding System MUCS812 HCLL Product Code M4631K90 HCLL Unit Number [id number] HCLL Dispense Status Released from Crossmatch_RE HCLL Blood Expiration Date [id number] HCLL Coding System [id number] HCLL us Attending Provider Unknown BLOOD BANK PRODUCT OR DERABLES Final Result HCLL * Prepare RBC, leukoreduced (10/28/2024 6:15 AM EDT) Product Code F6176S25 HCLL Unit Number [id number] HCLL Dispense Status Released from Crossmatch_RE HCLL Blood Expiration Date HCLL Coding System ILAN189 HCLL Product Code J8437P91 HCLL Unit Number [id number] HCLL Dispense Status Presumed Transfused_PT HCLL Blood Expiration Date [id number] HCLL Coding System FIGH835 HCLL Product Code D5994Z74 HCLL Unit Number [id number] HCLL Dispense Status Released from Crossmatch_RE HCLL Blood Expiration Date HCLL Coding System XBBQ626 HCLL Product Code L0938H97 HCLL Unit Number [id number] HCLL Dispense Status Presumed Transfused_PT HCLL Blood Expiration Date HCLL Coding System CAIO342 HCLL Product Code V1600U04 HCLL Unit Number [id number] HCLL Dispense Status Released from Crossmatch_RE HCLL Blood Expiration Date HCLL Coding System NMIJ823 HCLL Attending Provider Unknown BLOOD BANK PRODUCT OR DERABLES Final Result Performing Organization Address [facility] Co de Phone Number HCLL * Prepare Platelets, leukoreduced, 1 Units (10/28/2024 6:15 AM EDT) Product Code O1252O72 HCLL Unit Number [id number] HCLL Dispense Status Presumed Transfused_PT HCLL Blood Expiration Date [id number] HCLL Coding System [id number] HCLL Blood Bank Product John Pina MD BLOOD BANK PRODUCT ORDERABLES F inal Result Performing Organization Address [facility] de Phone Number HCLL * Prepare Cryoprecipitate, 1 Units (10/28/2024 6:15 AM EDT) Product Code A4199N27 HCLL Unit Number [id number] HCLL Dispense Status Presumed Transfused_PT HCLL Blood Expiration Date HCLL Coding System VYKU066 HCLL Product Code G4347H35 HCLL Unit Number [id number] HCLL Dispense Status Presumed Transfused_PT HCLL Blood Expiration Date 136630388149 HCLL Coding System VCUV598 HCLL Blood Bank Product John Pina MD BLOOD BANK PRODUCT ORDERABLES F inal Result Performing Organization Address [facility] Co de Phone Number HCLL * Prepare Fresh Frozen Plasma, 1 Units (10/28/2024 6:15 AM EDT) Product Code W4999P06 HCLL Unit Number [id number] HCLL Dispense Status Presumed Transfused_PT HCLL Blood Expiration Date [id number] HCLL Coding System VOHS559 HCLL Blood Bank Product John Pina MD BLOOD BANK PRODUCT ORDERABLES F inal Result Performing Organization Address [facility] Co de Phone Number HCLL * Prepare Cryoprecipitate, 1 Units (10/28/2024 6:15 AM EDT) Product Code I2122X85 HCLL Unit Number [id number] HCLL Dispense Status Presumed Transfused_PT HCLL Blood Expiration Date HCLL Coding System YXIO705 HCLL Product Code L5721R32 HCLL Unit Number [id number] HCLL Dispense Status Presumed Transfused_PT HCLL Blood Expiration Date HCLL Coding System MVMV641 HCLL Product Code C9839M60 HCLL Unit Number [id number] HCLL Dispense Status Presumed Transfused_PT HCLL Blood Expiration Date HCLL Coding System WEWN295 HCLL Product Code A2097J53 HCLL Unit Number [id number] HCLL Dispense Status Presumed Transfused_PT HCLL Blood Expiration Date [id number] HCLL Coding System FISD533 HCLL Blood Bank Product John Pina MD BLOOD BANK PRODUCT ORDERABLES F inal Result Performing Organization Address [facility] de Phone Number HCLL * (ABNORMAL) POC Glucose Monitoring Device (10/28/2024 4:55 AM EDT) POC Glucose Monitoring Device 104(H) 70 - 100 mg/dL 10/28/2024 4:57 AM EDT [facility] Blood 10/28/2024 4:55 AM EDT 10/28/2024 4:57 AM EDT Semaj Mcnair III, MD POINT OF CARE TEST ORDERABLES Final Result Performing Organization Address [facility] Co de Phone Number [facility] [address] [place] [address], [facility] * TEG-Bypass/ECMO/Liver HN (Factor function, Platelet/Fibrin Clot Strength w/Clot Breakdown, Heparinase In All Channels) (10/28/2024 4:13 AM EDT) Citrated Kaolin Reaction Time (TEGECMOLIVER) 7.2 4.6 - 9.1 minutes 10/28/2024 5:38 AM EDT [facility] Citrated Kaolin W/Heparinase Reaction Time (TEGECMOLIVER) 7.8 4.3 - 8.3 minutes 10/28/2024 5:38 AM EDT [facility] Citrated Kaolin Maximum Amplitude (TEGECMOLIVER) 53.0 52.0 - 69.0 mm 10/28/2024 5:38 AM EDT [facility] Citrated Functional Fibrinogen W/Heparinase Maximum Amplitude(TEGEC MOLIVER) 21.4 15.0 - 34.0 mm 10/28/2024 5:38 AM EDT [facility] Citrated Rapid Teg W/Heparinase Maximum Amplitude (TEGECMOLIVER) 54.7 53.0 - 69.0 mm 10/28/2024 5:38 AM EDT [facility] Citrated Kaolin w/Heparinase Percent Lysis (TEGECMOLIVER) 0.0 0.0 - 3.2 % 10/28/2024 5:38 AM EDT [facility] Whole Blood (Citrate) 10/28/2024 4:13 AM EDT 10/28/2024 4:28 AM EDT us Kemar Sahni MD LAB BLOOD ORDERABLES Final Result Performing Organization Address City/State/[facility] Co de Phone Number [facility] [address] [id number] * Protime-INR (10/28/2024 4:13 AM EDT) Protime 14.6 12.1 - 15.1 seconds 10/28/2024 4:53 AM EDT [facility] INR 1.1 0.9 - 1.1 10/28/2024 4:53 AM EDT [facility] Comment: RECOMMENDED THERAPEUTIC RANGES USING INR : Stable oral anticoagulant therapy: 2.0 - 3.0 Mechanical prosthetic heart valve: 2.5 - 3.5 Recurrent acute myocardial infarction: 2.5 - 3.5 Plasma 10/28/2024 4:13 AM EDT 10/28/2024 4:41 AM EDT Kemar Sahni MD LAB BLOOD ORDERABLES Final Result [facility] [address] * Magnesium (10/28/2024 4:13 AM EDT) Magnesium 2.2 1.5 - 2.5 mg/dL 10/28/2024 5:15 AM EDT [facility] Plasma 10/28/2024 4:13 AM EDT 10/28/2024 4:41 AM EDT Kemar Sahni MD LAB BLOOD ORDERABLES Final Result Performing Organization Address [facility] Co de Phone Number [facility] [address] * (ABNORMAL) Hepatic Function Panel (10/28/2024 4:13 AM EDT) Total Bilirubin 2.3(H) 0.0 - 1.5 mg/dL 10/28/2024 5:15 AM EDT [facility] Bilirubin, Direct 1.67(H) 0.00 - 0.40 mg/dL 10/28/2024 5:15 AM EDT [facility] AST 44(H) 13 - 39 U/L 10/28/2024 5:15 AM EDT [facility] ALT 101(H) 7 - 52 U/L 10/28/2024 5:15 AM EDT [facility] Alkaline Phosphatase 26(L) 36 - 125 U/L 10/28/2024 5:15 AM EDT [facility] Total Protein 4.5(L) 6.4 - 8.9 g/dL 10/28/2024 5:15 AM EDT [facility] Albumin 3.1(L) 3.5 - 5.7 g/dL 10/28/2024 5:15 AM EDT [facility] Bilirubin, Indirect 0.63 0.00 - 1.10 mg/dL 10/28/2024 5:15 AM EDT [facility] Plasma 10/28/2024 4:13 AM EDT 10/28/2024 4:41 AM EDT Kemar Sahni MD LAB BLOOD ORDERABLES Final Result [facility] [address] [place], [place] [address] * (ABNORMAL) Renal Function Panel w/EGFR (10/28/2024 4:13 AM EDT) Sodium 142 133 - 146 mmol/L 10/28/2024 5:15 AM EDT [facility] Potassium 3.5 3.5 - 5.3 mmol/L 10/28/2024 5:15 AM EDT [facility] Chloride 111(H) 98 - 110 mmol/L 10/28/2024 5:15 AM EDT [facility] CO2 22 21 - 33 mmol/L 10/28/2024 5:15 AM EDT [facility] Anion Gap 9 3 - 16 mmol/L 10/28/2024 5:15 AM EDT [facility] BUN 58(H) 7 - 25 mg/dL 10/28/2024 5:15 AM EDT [facility] Creatinine 2.24(H) 0.60 - 1.30 mg/dL 10/28/2024 5:15 AM EDT [facility] Glucose 103(H) 70 - 100 mg/dL 10/28/2024 5:15 AM EDT [facility] Calcium 9.1 8.6 - 10.3 mg/dL 10/28/2024 5:15 AM EDT [facility] Phosphorus 4.8(H) 2.1 - 4.7 mg/dL 10/28/2024 5:15 AM EDT [facility] Albumin 3.1(L) 3.5 - 5.7 g/dL 10/28/2024 5:15 AM EDT [facility] Osmolality, Calculated 310(H) 278 - 305 mOsm/kg 10/28/2024 5:15 AM EDT [facility] EGFR 37 10/28/2024 5:15 AM EDT [...] Final Result [facility] [address] [place] [address], [facility] * (ABNORMAL) CBC (10/28/2024 4:13 AM EDT) WBC 4.5 3.8 - 10.8 10E3/uL 10/28/2024 5:09 AM EDT [facility] RBC 2.39(L) 4.20 - 5.80 10E6/uL 10/28/2024 5:09 AM EDT [facility] Hemoglobin 7.3(L) 13.2 - 17.1 g/dL 10/28/2024 5:09 AM EDT [facility] Hematocrit 21.0(L) 38.5 - 50.0 % 10/28/2024 5:09 AM EDT [facility] MCV 87.8 80.0 - 100.0 fL 10/28/2024 5:09 AM EDT [facility] MCH 30.5 27.0 - 33.0 pg 10/28/2024 5:09 AM EDT [facility] MCHC 34.7 32.0 - 36.0 g/dL 10/28/2024 5:09 AM EDT [facility] RDW 18.7(H) 11.0 - 15.0 % 10/28/2024 5:09 AM EDT [facility] Platelets 38(L) 140 - 400 10E3/uL 10/28/2024 5:09 AM EDT [facility] Comment: CNV Specimen checked for clots. None detected. MPV 7.6 7.5 - 11.5 fL 10/28/2024 5:09 AM EDT [facility] Whole Blood 10/28/2024 4:13 AM EDT 10/28/2024 4:41 AM EDT Kemar Sahni MD LAB BLOOD ORDERABLES Final Result [facility] [address] * (ABNORMAL) POC Glucose Monitoring Device (10/28/2024 4:04 AM EDT) POC Glucose Monitoring Device 103(H) 70 - 100 mg/dL 10/28/2024 4:05 AM EDT [facility] Blood 10/28/2024 4:04 AM EDT 10/28/2024 4:05 AM EDT Semaj Mcnair III, MD POINT OF CARE TEST ORDERABLES Final Result [facility] [address] [facility]. [address] * (ABNORMAL) POC Glucose Monitoring Device (10/28/2024 3:00 AM EDT) POC Glucose Monitoring Device 106(H) 70 - 100 mg/dL 10/28/2024 3:01 AM EDT [facility] Blood 10/28/2024 3:0 0 AM EDT 10/28/2024 3:01 AM EDT us Semaj Mcnair III, MD POINT OF CARE TEST ORDERABLES Final Result [facility] [address] [facility]. [address] * (ABNORMAL) POC Glucose Monitoring Device (10/28/2024 2:32 AM EDT) POC Glucose Monitoring Device 109(H) 70 - 100 mg/dL 10/28/2024 2:33 AM EDT [facility] Blood 10/28/2024 2:32 AM EDT 10/28/2024 2:33 AM EDT Semaj Mcnair III, MD POINT OF CARE TEST ORDERABLES Final Result Performing Organization Address City/[facility]/ZIP Co de Phone Number [facility] [address] [place] [facility]. [address] * (ABNORMAL) POC Glucose Monitoring Device (10/28/2024 2:14 AM EDT) POC Glucose Monitoring Device 115(H) 70 - 100 mg/dL 10/28/2024 2:15 AM EDT [facility] Blood 10/28/2024 2:14 AM EDT 10/28/2024 2:15 AM EDT us Semaj Mcnair III, MD POINT OF CARE TEST ORDERABLES Final Result Performing Organization Address City/[facility]/ZIP Co de Phone Number [facility] [address] [facility]. [address] * (ABNORMAL) POC Glucose Monitoring Device (10/28/2024 2:03 AM EDT) POC Glucose Monitoring Device 101(H) 70 - 100 mg/dL 10/28/2024 2:04 AM EDT [facility] Blood 10/28/2024 2:03 AM EDT 10/28/2024 2:04 AM EDT us Semaj Mcnair III, MD POINT OF CARE TEST ORDERABLES Final Result [facility] [address] * Transfuse RBC Transfusion Rate: Per dept routine (10/28/2024 1:51 AM EDT) John Moreno MD NURSING TREATMENT ORDERABLES - BLOOD ADMIN Final Result Performing Organization Address City/[facility]/ZIP Co de Phone Number EXTERNAL * Transfuse RBC Transfusion Rate: Per dept routine, 1 Units (10/28/2024 1:51 AM EDT) John Moreno MD NURSING TREATMENT ORDERABLES - BLOOD ADMIN Final Result Performing Organization Address City/[facility] Co de Phone Number EXTERNAL * (ABNORMAL) TEG-Bypass/ECMO/Liver HN (Factor function, Platelet/Fibrin Clot Strength w/Clot Breakdown, Heparinase In All Channels) (10/28/2024 12:05 AM EDT) [facility] Citrated Kaolin Reaction Time (TEGECMOLIVER) 7.5 4.6 - 9.1 minutes 10/28/2024 1:22 AM EDT [facility] Citrated Kaolin W/Heparinase Reaction Time (TEGECMOLIVER) 7.7 4.3 - 8.3 minutes 10/28/2024 1:22 AM EDT [facility] Citrated Kaolin Maximum Amplitude (TEGECMOLIVER) 54.4 52.0 - 69.0 mm 10/28/2024 1:22 AM EDT [facility] [facility] Citrated Functional Fibrinogen W/Heparinase Maximum Amplitude(TEGEC MOLIVER) 20.4 15.0 - 34.0 mm 10/28/2024 1:22 AM EDT [facility] Citrated Rapid Teg W/Heparinase Maximum Amplitude (TEGECMOLIVER) 51.0(L) 53.0 - 69.0 mm 10/28/2024 1:22 AM EDT [facility] Citrated Kaolin w/Heparinase Percent Lysis (TEGECMOLIVER) 0.0 0.0 - 3.2 % 10/28/2024 1:22 AM EDT [facility] Whole Blood (Citrate) 10/28/2024 12:05 AM EDT 10/28/2024 12:09 AM EDT Kemar Sahni MD LAB BLOOD ORDERABLES Final Result [facility] [address] [facility]. [address] * Magnesium (10/28/2024 12:05 AM EDT) Magnesium 2.2 1.5 - 2.5 mg/dL 10/28/2024 1:59 AM EDT [facility] Plasma 10/28/2024 12:0 5 AM EDT 10/28/2024 12:11 AM EDT Kemar Sahni MD LAB BLOOD ORDERABLES Final Result Performing Organization Address [facility] de Phone Number [facility] [address] * (ABNORMAL) Renal Function Panel w/EGFR (10/28/2024 12:05 AM EDT) Sodium 144 133 - 146 mmol/L 10/28/2024 1:59 AM EDT [facility] Potassium 3.4(L) 3.5 - 5.3 mmol/L 10/28/2024 1:59 AM EDT [facility] Chloride 112(H) 98 - 110 mmol/L 10/28/2024 1:59 AM EDT [facility] CO2 19(L) 21 - 33 mmol/L 10/28/2024 1:59 AM EDT [facility] Anion Gap 13 3 - 16 mmol/L 10/28/2024 1:59 AM EDT [facility] BUN 59(H) 7 - 25 mg/dL 10/28/2024 1:59 AM EDT [facility] Creatinine 2.42(H) 0.60 - 1.30 mg/dL 10/28/2024 1:59 AM EDT [facility] Glucose 118(H) 70 - 100 mg/dL 10/28/2024 1:59 AM EDT [facility] Calcium 9.0 8.6 - 10.3 mg/dL 10/28/2024 1:59 AM EDT [facility] Phosphorus 5.3(H) 2.1 - 4.7 mg/dL 10/28/2024 1:59 AM EDT [facility] Albumin 3.1(L) 3.5 - 5.7 g/dL 10/28/2024 1:59 AM EDT [facility] Osmolality, Calculated 316(H) 278 - 305 mOsm/kg 10/28/2024 1:59 AM EDT [facility] EGFR 34 10/28/2024 1:59 AM EDT [facility] Comment:As of 2021, the estimated GFR [...] Final Result [facility] [address] [id number] * (ABNORMAL) Differential (10/28/2024 12:05 AM EDT) Neutrophils Relative 88.6(H) 40.0 - 80.0 % 10/28/2024 12:41 AM EDT [facility] Lymphocytes Relative 2.5(L) 15.0 - 45.0 % 10/28/2024 12:41 AM EDT [facility] Monocytes Relative 6.1 0.0 - 12.0 % 10/28/2024 12:41 AM EDT [facility] Eosinophils Relative 2.4 0.0 - 8.0 % 10/28/2024 12:41 AM EDT [facility] Basophils Relative 0.4 0.0 - 1.0 % 10/28/2024 12:41 AM EDT [facility] nRBC 0 0 - 0 /100 WBC 10/28/2024 12:41 AM EDT [facility] Neutrophils Absolute 4,341 1,520 - 8,640 /uL 10/28/2024 12:41 AM EDT [facility] Lymphocytes Absolute 123(L) 570 - 4,860 /uL 10/28/2024 12:41 AM EDT [facility] Monocytes Absolute 299 0 - 1,296 /uL 10/28/2024 12:41 AM EDT [facility] Eosinophils Absolute 118 0 - 864 /uL 10/28/2024 12:41 AM EDT [facility] Basophils Absolute 20 0 - 108 /uL 10/28/2024 12:41 AM EDT [facility] Whole Blood 10/28/2024 12:0 5 AM EDT 10/28/2024 12:11 AM EDT Kemar Sahni MD LAB BLOOD ORDERABLES Final Result Performing Organization Address City/State/[facility] Co de Phone Number [facility] [address] [place] [address], [facility] * (ABNORMAL) CBC (10/28/2024 12:05 AM EDT) WBC 4.9 3.8 - 10.8 10E3/uL 10/28/2024 12:41 AM EDT [facility] RBC 2.18(L) 4.20 - 5.80 10E6/uL 10/28/2024 12:41 AM EDT [facility] Hemoglobin 6.7(L) 13.2 - 17.1 g/dL 10/28/2024 12:41 AM EDT [facility] Hematocrit 19.2(L) 38.5 - 50.0 % 10/28/2024 12:41 AM EDT [facility] MCV 87.8 80.0 - 100.0 fL 10/28/2024 12:41 AM EDT [facility] MCH 30.6 27.0 - 33.0 pg 10/28/2024 12:41 AM EDT [facility] MCHC 34.8 32.0 - 36.0 g/dL 10/28/2024 12:41 AM EDT [facility] RDW 19.6(H) 11.0 - 15.0 % 10/28/2024 12:41 AM EDT [facility] Platelets 45(L) 140 - 400 10E3/uL 10/28/2024 12:41 AM EDT [facility] Comment: CNV Specimen checked for clots. None detected. MPV 7.8 7.5 - 11.5 fL 10/28/2024 12:41 AM EDT [facility] Whole Blood 10/28/2024 12:0 5 AM EDT 10/28/2024 12:11 AM EDT Kemar Sahni MD LAB BLOOD ORDERABLES Final Result [facility] [address] * (ABNORMAL) POC Glucose Monitoring Device (10/28/2024 12:03 AM EDT) POC Glucose Monitoring Device 122(H) 70 - 100 mg/dL 10/28/2024 12:04 AM EDT [facility] Blood 10/28/2024 12:0 3 AM EDT 10/28/2024 12:04 AM EDT us Semaj Mcnair III, MD POINT OF CARE TEST ORDERABLES Final Result [facility] [address] * (ABNORMAL) POC Glucose Monitoring Device (10/27/2024 10:03 PM EDT) POC Glucose Monitoring Device 127(H) 70 - 100 mg/dL 10/27/2024 10:03 PM EDT [facility] Blood 10/27/2024 10:0 3 PM EDT 10/27/2024 10:03 PM EDT us Semaj Mcnair III, MD POINT OF CARE TEST ORDERABLES Final Result [facility] [address] [facility]. [address] * (ABNORMAL) POC Glucose Monitoring Device (10/27/2024 8:06 PM EDT) POC Glucose Monitoring Device 128(H) 70 - 100 mg/dL 10/27/2024 8:45 PM EDT [facility] Blood 10/27/2024 8:06 PM EDT 10/27/2024 8:45 PM EDT us Semaj Mcnair III, MD POINT OF CARE TEST ORDERABLES Final Result Performing Organization Address City/[facility]/ZIP Co de Phone Number [facility] [address] [facility]. [address] * (ABNORMAL) POC Glucose Monitoring Device (10/27/2024 6:00 PM EDT) POC Glucose Monitoring Device 128(H) 70 - 100 mg/dL 10/27/2024 6:00 PM EDT [facility] Blood 10/27/2024 6:00 PM EDT 10/27/2024 6:00 PM EDT us Semaj Mcnair III, MD POINT OF CARE TEST ORDERABLES Final Result [facility] [address] [facility]. [address] * Lactic Acid, STAT (10/27/2024 5:41 PM EDT) Lactate 0.5 0.5 - 2.2 mmol/L 10/27/2024 6:28 PM EDT [facility] Plasma 10/27/2024 5:41 PM EDT 10/27/2024 5:49 PM EDT Narrative [facility] - 10/27/2024 6:28 PM EDT Redraw John Moreno MD LAB BLOOD ORDERABLES Final R esult Performing Organization Address City/[facility]/ZIP Co de Phone Number [facility] [address] [facility]. [address] * (ABNORMAL) Hepatic Function Panel, STAT (10/27/2024 5:13 PM EDT) Total Bilirubin 1.7(H) 0.0 - 1.5 mg/dL 10/27/2024 5:50 PM EDT [facility] Bilirubin, Direct 1.17(H) 0.00 - 0.40 mg/dL 10/27/2024 5:50 PM EDT [facility] AST 60(H) 13 - 39 U/L 10/27/2024 5:50 PM EDT [facility] ALT 134(H) 7 - 52 U/L 10/27/2024 5:50 PM EDT [facility] Alkaline Phosphatase 27(L) 36 - 125 U/L 10/27/2024 5:50 PM EDT [facility] Total Protein 4.1(L) 6.4 - 8.9 g/dL 10/27/2024 5:50 PM EDT [facility] Albumin 2.9(L) 3.5 - 5.7 g/dL 10/27/2024 5:50 PM EDT [facility] Bilirubin, Indirect 0.53 0.00 - 1.10 mg/dL 10/27/2024 5:50 PM EDT [facility] Plasma 10/27/2024 5:13 PM EDT 10/27/2024 5:23 PM EDT Shay Plata MD LAB BLOOD ORDERABLES Final Result Performing Organization Address [facility]/ZIP Co de Phone Number [facility] [address] * (ABNORMAL) TEG-Bypass/ECMO/Liver HN (Factor function, Platelet/Fibrin Clot Strength w/Clot Breakdown, Heparinase In All Channels) (10/27/2024 5:13 PM EDT) Citrated Kaolin Reaction Time (TEGECMOLIVER) 8.0 4.6 - 9.1 minutes 10/27/2024 6:56 PM EDT [facility] Citrated Kaolin W/Heparinase Reaction Time (TEGECMOLIVER) 6.8 4.3 - 8.3 minutes 10/27/2024 6:56 PM EDT [facility] Citrated Kaolin Maximum Amplitude (TEGECMOLIVER) 55.4 52.0 - 69.0 mm 10/27/2024 6:56 PM EDT [facility] Citrated Functional Fibrinogen W/Heparinase Maximum Amplitude(TEGEC MOLIVER) 22.9 15.0 - 34.0 mm 10/27/2024 6:56 PM EDT [facility] Citrated Rapid Teg W/Heparinase Maximum Amplitude (TEGECMOLIVER) 50.8(L) 53.0 - 69.0 mm 10/27/2024 6:56 PM EDT [facility] Citrated Kaolin w/Heparinase Percent Lysis (TEGECMOLIVER) 0.1 0.0 - 3.2 % 10/27/2024 6:56 PM EDT [facility] Whole Blood (Citrate) 10/27/2024 5:13 PM EDT 10/27/2024 5:20 PM EDT us Kemar Sahni MD LAB BLOOD ORDERABLES Final Result [facility] [address] * (ABNORMAL) Protime-INR (10/27/2024 5:13 PM EDT) Protime 15.2(H) 12.1 - 15.1 seconds 10/27/2024 5:40 PM EDT [facility] INR 1.1 0.9 - 1.1 10/27/2024 5:40 PM EDT [facility] Comment: RECOMMENDED THERAPEUTIC RANGES USING INR : Stable oral anticoagulant therapy: 2.0 - 3.0 Mechanical prosthetic heart valve: 2.5 - 3.5 Recurrent acute myocardial infarction: 2.5 - 3.5 Plasma 10/27/2024 5:13 PM EDT 10/27/2024 5:23 PM EDT Kemar Sahni MD LAB BLOOD ORDERABLES Final Result Performing Organization Address City/[facility]/ZIP Co de Phone Number [facility] [address] [facility]. [address] * Magnesium (10/27/2024 5:13 PM EDT) Magnesium 2.4 1.5 - 2.5 mg/dL 10/27/2024 5:53 PM EDT [facility] Plasma 10/27/2024 5:13 PM EDT 10/27/2024 5:23 PM EDT Kemar Sahni MD LAB BLOOD ORDERABLES Final Result Performing Organization Address [facility] de Phone Number [facility] [address] * (ABNORMAL) Hepatic Function Panel (10/27/2024 5:13 PM EDT) Total Bilirubin 1.7(H) 0.0 - 1.5 mg/dL 10/27/2024 5:53 PM EDT [facility] Bilirubin, Direct 1.10(H) 0.00 - 0.40 mg/dL 10/27/2024 5:53 PM EDT [facility] AST 62(H) 13 - 39 U/L 10/27/2024 5:53 PM EDT [facility] ALT 134(H) 7 - 52 U/L 10/27/2024 5:53 PM EDT [facility] Alkaline Phosphatase 27(L) 36 - 125 U/L 10/27/2024 5:53 PM EDT [facility] Total Protein 4.1(L) 6.4 - 8.9 g/dL 10/27/2024 5:53 PM EDT [facility] Albumin 2.9(L) 3.5 - 5.7 g/dL 10/27/2024 5:53 PM EDT [facility] Bilirubin, Indirect 0.60 0.00 - 1.10 mg/dL 10/27/2024 5:53 PM EDT [facility] Plasma 10/27/2024 5:13 PM EDT 10/27/2024 5:23 PM EDT Kemar Sahni MD LAB BLOOD ORDERABLES Final Result [facility] [address] [place] [address], [facility] * (ABNORMAL) Renal Function Panel w/EGFR (10/27/2024 5:13 PM EDT) Sodium 142 133 - 146 mmol/L 10/27/2024 5:53 PM EDT [facility] Potassium 3.4(L) 3.5 - 5.3 mmol/L 10/27/2024 5:53 PM EDT [facility] Chloride 109 98 - 110 mmol/L 10/27/2024 5:53 PM EDT [facility] CO2 22 21 - 33 mmol/L 10/27/2024 5:53 PM EDT [facility] Anion Gap 11 3 - 16 mmol/L 10/27/2024 5:53 PM EDT [facility] BUN 61(H) 7 - 25 mg/dL 10/27/2024 5:53 PM EDT [facility] Creatinine 2.42(H) 0.60 - 1.30 mg/dL 10/27/2024 5:53 PM EDT [facility] Glucose 125(H) 70 - 100 mg/dL 10/27/2024 5:53 PM EDT [facility] Calcium 8.8 8.6 - 10.3 mg/dL 10/27/2024 5:53 PM EDT [facility] Phosphorus 5.7(H) 2.1 - 4.7 mg/dL 10/27/2024 5:53 PM EDT [facility] Albumin 2.9(L) 3.5 - 5.7 g/dL 10/27/2024 5:53 PM EDT [facility] Osmolality, Calculated 313(H) 278 - 305 mOsm/kg 10/27/2024 5:53 PM EDT [facility] EGFR 34 10/27/2024 5:53 PM EDT [facility] Comment:As of 2021, the estimated GFR [...] Final Result [facility] [address] * (ABNORMAL) CBC (10/27/2024 5:13 PM EDT) WBC 4.9 3.8 - 10.8 10E3/uL 10/27/2024 6:14 PM EDT [facility] RBC 2.44(L) 4.20 - 5.80 10E6/uL 10/27/2024 6:14 PM EDT [facility] Hemoglobin 7.4(L) 13.2 - 17.1 g/dL 10/27/2024 6:14 PM EDT [facility] Hematocrit 21.4(L) 38.5 - 50.0 % 10/27/2024 6:14 PM EDT [facility] MCV 87.6 80.0 - 100.0 fL 10/27/2024 6:14 PM EDT [facility] MCH 30.3 27.0 - 33.0 pg 10/27/2024 6:14 PM EDT [facility] MCHC 34.6 32.0 - 36.0 g/dL 10/27/2024 6:14 PM EDT [facility] RDW 19.6(H) 11.0 - 15.0 % 10/27/2024 6:14 PM EDT [facility] Platelets 47(L) 140 - 400 10E3/uL 10/27/2024 6:14 PM EDT [facility] Comment: CNV Specimen checked for clots. None detected. MPV 8.1 7.5 - 11.5 fL 10/27/2024 6:14 PM EDT [facility] Whole Blood 10/27/2024 5:13 PM EDT 10/27/2024 5:23 PM EDT Kemar Sahni MD LAB BLOOD ORDERABLES Final Result Performing Organization Address City/[facility]/ZIP Co de Phone Number [facility] [address] * (ABNORMAL) POC Glucose Monitoring Device (10/27/2024 3:57 PM EDT) [facility] POC Glucose Monitoring Device 131(H) 70 - 100 mg/dL 10/27/2024 3:58 PM EDT [facility] Blood 10/27/2024 3:57 PM EDT 10/27/2024 3:58 PM EDT Semaj Mcnair III, MD POINT OF CARE TEST ORDERABLES Final Result [facility] [address] * (ABNORMAL) CBC, STAT (10/27/2024 2:40 PM EDT) Pathologist [facility] WBC 5.8 3.8 - 10.8 10E3/uL 10/27/2024 2:54 PM EDT [facility] RBC 2.43(L) 4.20 - 5.80 10E6/uL 10/27/2024 2:54 PM EDT [facility] Hemoglobin 7.5(L) 13.2 - 17.1 g/dL 10/27/2024 2:54 PM EDT [facility] Hematocrit 21.5(L) 38.5 - 50.0 % 10/27/2024 2:54 PM EDT [facility] MCV 88.2 80.0 - 100.0 fL 10/27/2024 2:54 PM EDT [facility] MCH 30.7 27.0 - 33.0 pg 10/27/2024 2:54 PM EDT [facility] MCHC 34.8 32.0 - 36.0 g/dL 10/27/2024 2:54 PM EDT [facility] RDW 19.1(H) 11.0 - 15.0 % 10/27/2024 2:54 PM EDT [facility] Platelets 50(L) 140 - 400 10E3/uL 10/27/2024 2:54 PM EDT [facility] MPV 7.5 7.5 - 11.5 fL 10/27/2024 2:54 PM EDT [facility] Whole Blood 10/27/2024 2:40 PM EDT 10/27/2024 2:44 PM EDT us John Moreno MD LAB BLOOD ORDERABLES Final R esult [facility] [address] [place] [address], [facility] * (ABNORMAL) Blood Gas, Arterial, STAT (10/27/2024 2:40 PM EDT) O2 Sat, Arterial 98 10/27/2024 2:46 PM EDT [facility] FIO2 RA 10/27/2024 2:46 PM EDT [facility] pH, Arterial 7.37 7.35 - 7.45 10/27/2024 2:46 PM EDT [facility] pCO2, Arterial 35 35 - 45 mm Hg 10/27/2024 2:46 PM EDT [facility] pO2, Arterial 92 80 - 100 mm Hg 10/27/2024 2:46 PM EDT [facility] HCO3, Arterial 21(L) 22 - 26 mmol/L 10/27/2024 2:46 PM EDT [facility] CO2 Content,Arteri al 21(L) 23 - 27 mmol/L 10/27/2024 2:46 PM EDT [facility] Base Excess, Arterial -4.6(L) -2.0 - 3.0 mmol/L 10/27/2024 2:46 PM EDT [facility] %HBO2, Arterial 95.4 95.0 - 98.0 % 10/27/2024 2:46 PM EDT [facility] Carboxyhemoglo bin, Arterial 1.6 % 10/27/2024 2:46 PM EDT [facility] Comment: CARBOXYHEMOGLOBIN (CO) REFERENCE RANGES: Non-Smokers: <2 % Smokers: <8 % TOXIC: >20 % Methemoglobin, Arterial 1.0 0.0 - 1.5 % 10/27/2024 2:46 PM EDT [facility] Reduced hemoglobin, Arterial 2.1 0.0 - 5.0 % 10/27/2024 2:46 PM EDT [facility] Blood, Arterial 10/27/2024 2 :40 PM EDT 10/27/2024 2:44 PM EDT Narrative [facility] - 10/27/2024 2:46 PM EDT Post extubation John Moreno MD LAB BLOOD ORDERABLES Final R esult Performing Organization Address City/[facility]/ZIP Co de Phone Number [facility] [address] * (ABNORMAL) POC Glucose Monitoring Device (10/27/2024 2:06 PM EDT) [facility] POC Glucose Monitoring Device 134(H) 70 - 100 mg/dL 10/27/2024 2:06 PM EDT [facility] Blood 10/27/2024 2:06 PM EDT 10/27/2024 2:06 PM EDT Semaj Mcnair III, MD POINT OF CARE TEST ORDERABLES Final Result [facility] [address] [id number] * (ABNORMAL) Blood gas, arterial (10/27/2024 12:35 PM EDT) O2 Sat, Arterial 99 10/27/2024 12:46 PM EDT [facility] FIO2 SBT 30% 10/27/2024 12:46 PM EDT [facility] pH, Arterial 7.35 7.35 - 7.45 10/27/2024 12:46 PM EDT [facility] pCO2, Arterial 37 35 - 45 mm Hg 10/27/2024 12:46 PM EDT [facility] pO2, Arterial 182(H) 80 - 100 mm Hg 10/27/2024 12:46 PM EDT [facility] HCO3, Arterial 21(L) 22 - 26 mmol/L 10/27/2024 12:46 PM EDT [facility] CO2 Content,Arteri al 22(L) 23 - 27 mmol/L 10/27/2024 12:46 PM EDT [facility] Base Excess, Arterial -4.8(L) -2.0 - 3.0 mmol/L 10/27/2024 12:46 PM EDT [facility] %HBO2, Arterial 96.3 95.0 - 98.0 % 10/27/2024 12:46 PM EDT [facility] Carboxyhemoglo bin, Arterial 1.7 % 10/27/2024 12:46 PM EDT [facility] Comment: CARBOXYHEMOGLOBIN (CO) REFERENCE RANGES: Non-Smokers: <2 % Smokers: <8 % TOXIC: >20 % Methemoglobin, Arterial 1.4 0.0 - 1.5 % 10/27/2024 12:46 PM EDT [facility] Reduced hemoglobin, Arterial 0.6 0.0 - 5.0 % 10/27/2024 12:46 PM EDT [facility] Blood, Arterial 10/27/2024 1 2:35 PM EDT 10/27/2024 12:42 PM EDT Narrative [facility] - 10/27/2024 12:46 PM EDT Please obtain post SBT us Shay Sifuentes MD LAB BLOOD ORDERABLES Final Resu lt [facility] [address] [place] [address], [facility] * (ABNORMAL) TEG-Bypass/ECMO/Liver HN (Factor function, Platelet/Fibrin Clot Strength w/Clot Breakdown, Heparinase In All Channels) (10/27/2024 12:07 PM EDT) Citrated Kaolin Reaction Time (TEGECMOLIVER) 7.9 4.6 - 9.1 minutes 10/27/2024 1:24 PM EDT [facility] Citrated Kaolin W/Heparinase Reaction Time (TEGECMOLIVER) 8.3 4.3 - 8.3 minutes 10/27/2024 1:24 PM EDT [facility] Citrated Kaolin Maximum Amplitude (TEGECMOLIVER) 52.0 52.0 - 69.0 mm 10/27/2024 1:24 PM EDT [facility] Citrated Functional Fibrinogen W/Heparinase Maximum Amplitude(TEGEC MOLIVER) 20.1 15.0 - 34.0 mm 10/27/2024 1:24 PM EDT [facility] Citrated Rapid Teg W/Heparinase Maximum Amplitude (TEGECMOLIVER) 49.4(L) 53.0 - 69.0 mm 10/27/2024 1:24 PM EDT [facility] Citrated Kaolin w/Heparinase Percent Lysis (TEGECMOLIVER) 0.0 0.0 - 3.2 % 10/27/2024 1:24 PM EDT [facility] Whole Blood (Citrate) 10/27/2024 12:07 PM EDT 10/27/2024 12:09 PM EDT us Kemar Sahni MD LAB BLOOD ORDERABLES Final Result [facility] [address] [place] [address], [facility] * (ABNORMAL) POC Glucose Monitoring Device (10/27/2024 12:01 PM EDT) POC Glucose Monitoring Device 121(H) 70 - 100 mg/dL 10/27/2024 12:02 PM EDT [facility] Blood 10/27/2024 12:0 1 PM EDT 10/27/2024 12:01 PM EDT Semaj Mcnair III, MD POINT OF CARE TEST ORDERABLES Final Result Performing Organization Address [facility] Co de Phone Number [facility] [address] * (ABNORMAL) POC Glucose Monitoring Device (10/27/2024 10:59 AM EDT) POC Glucose Monitoring Device 126(H) 70 - 100 mg/dL 10/27/2024 11:10 AM EDT [facility] Blood 10/27/2024 10:5 9 AM EDT 10/27/2024 11:10 AM EDT Semaj Mcnair III, MD POINT OF CARE TEST ORDERABLES Final Result Performing Organization Address [facility] de Phone Number [facility] [address] * ECG 12 lead (MUSE) (10/27/2024 10:17 AM EDT) 10/27/2024 10:1 7 AM EDT Narrative MUSE - 10/27/2024 2:51 PM EDT Ventricular Rate: 91 BPM Atrial Rate: 91 BPM P-R Interval: 168 ms QRS Duration: 90 ms QT: 274 ms QTc: 337 ms P [place]: 60 degrees R [place]: -30 degrees T [place]: -15 degrees Diagnosis Line: NORMAL SINUS RHYTHM ^ LEFT AXIS DEVIATION, LEFT ANTERIOR HEMIBLOCK ^ NONSPECIFIC T WAVE CHANGE ^ ABNORMAL ECG ^ ^ Confirmed by MD ROLLY, [facility] ([id number]) on 10/27/2024 2:51:52 PM Shay Sifuentes MD ECG ORDERABLES Final Result Performing Organization Address City/[facility] Co de Phone Number MUSE * (ABNORMAL) POC Glucose Monitoring Device (10/27/2024 10:00 AM EDT) POC Glucose Monitoring Device 121(H) 70 - 100 mg/dL 10/27/2024 10:01 AM EDT [facility] Blood 10/27/2024 10:0 0 AM EDT 10/27/2024 10:01 AM EDT Semaj Mcnair III, MD POINT OF CARE TEST ORDERABLES Final Result [facility] [address] [address], [facility] * US Renal Transplant (10/27/2024 [...] US ORDERABLES Final Result * US Duplex [id number]-[id number] Comp (10/27/2024 9:51 AM EDT) Anatomical Region [...] EXAM: US ABDOMEN LIMITED EXAM: US DUPLEX [id number] COMPLETE INDICATION: Post-op liver transplant COMPARISON: None [...] absent.. Pancreas: Obscured by overlying bowel gas. [place] right kidney: 12.5 cm in length. Normal [...] EXAM: US ABDOMEN LIMITED EXAM: US DUPLEX [id number] COMPLETE INDICATION: Post-op liver transplant COMPARISON: None [...] absent.. Pancreas: Obscured by overlying bowel gas. [place] right kidney: 12.5 cm in length. Normal [...] MD at 10/27/2024 10:38 AM EDT us Sveat Judge MD IMG US ORDERABLES Final Result [...] within normal limits. Report Verified by: Alberto Rodriugez MD at 10/27/2024 10:38 AM EDT Narrative 10/27/2024 10:38 AM EDT EXAM: US ABDOMEN LIMITED EXAM: US DUPLEX [id number] COMPLETE INDICATION: Post-op liver transplant COMPARISON: None [...] absent.. Pancreas: Obscured by overlying bowel gas. [place] right kidney: 12.5 cm in length. Normal [...] EXAM: US ABDOMEN LIMITED EXAM: US DUPLEX [id number] COMPLETE INDICATION: Post-op liver transplant COMPARISON: None [...] absent.. Pancreas: Obscured by overlying bowel gas. [place] right kidney: 12.5 cm in length. Normal [...] - 100 mg/dL 10/27/2024 9:06 AM EDT [facility] Blood 10/27/2024 9:05 AM EDT 10/27/2024 9:06 AM EDT Semaj Mcnair III, MD POINT OF CARE TEST ORDERABLES Final Result [facility] [address] [id number], [facility] * X-ray Portable Chest (10/27/2024 [...] John Moreno MD IMG DIAGNOSTIC IMAGING ORDER PLA Final Result * (ABNORMAL) Protime-INR, STAT (10/27/2024 8:16 AM EDT) Protime 16.2(H) 12.1 - 15.1 seconds 10/27/2024 8:35 AM EDT [facility] INR 1.2(H) 0.9 - 1.1 10/27/2024 8:35 AM EDT [facility] Comment: RECOMMENDED THERAPEUTIC RANGES USING INR : Stable oral anticoagulant therapy: 2.0 - 3.0 Mechanical prosthetic heart valve: 2.5 - 3.5 Recurrent acute myocardial infarction: 2.5 - 3.5 Plasma 10/27/2024 8:16 AM EDT 10/27/2024 8:20 AM EDT us John Moreno MD LAB BLOOD ORDERABLES Final R esult [facility] [address] [place], [place] [address] * Magnesium (10/27/2024 8:00 AM EDT) Magnesium 1.8 1.5 - 2.5 mg/dL 10/27/2024 10:50 AM EDT [facility] Plasma 10/27/2024 8:00 AM EDT 10/27/2024 10:31 AM EDT Kemar Sahni MD LAB BLOOD ORDERABLES Final Result [facility] [address] [place] [address], [facility] * (ABNORMAL) Renal Function Panel w/EGFR (10/27/2024 8:00 AM EDT) Sodium 142 133 - 146 mmol/L 10/27/2024 10:18 AM EDT [facility] Potassium 3.0(L) 3.5 - 5.3 mmol/L 10/27/2024 10:18 AM EDT [facility] Chloride 109 98 - 110 mmol/L 10/27/2024 10:18 AM EDT [facility] CO2 21 21 - 33 mmol/L 10/27/2024 10:18 AM EDT [facility] Anion Gap 12 3 - 16 mmol/L 10/27/2024 10:18 AM EDT [facility] BUN 59(H) 7 - 25 mg/dL 10/27/2024 10:18 AM EDT [facility] Creatinine 2.54(H) 0.60 - 1.30 mg/dL 10/27/2024 10:18 AM EDT [facility] Glucose 111(H) 70 - 100 mg/dL 10/27/2024 10:18 AM EDT [facility] Calcium 9.1 8.6 - 10.3 mg/dL 10/27/2024 10:18 AM EDT [facility] Phosphorus 5.5(H) 2.1 - 4.7 mg/dL 10/27/2024 10:18 AM EDT [facility] Albumin 3.0(L) 3.5 - 5.7 g/dL 10/27/2024 10:18 AM EDT [facility] Osmolality, Calculated 311(H) 278 - 305 mOsm/kg 10/27/2024 10:18 AM EDT [facility] EGFR 32 10/27/2024 10:18 AM EDT [facility] Comment:As of 2021, the estimated GFR [...] BLOOD ORDERABLES Final Result Performing Organization Address City/State/[facility] Co de Phone Number [facility] [address] * (ABNORMAL) Hepatic Function Panel, STAT (10/27/2024 8:00 AM EDT) Total Bilirubin 1.3 0.0 - 1.5 mg/dL 10/27/2024 8:51 AM EDT [facility] Bilirubin, Direct 0.93(H) 0.00 - 0.40 mg/dL 10/27/2024 8:51 AM EDT [facility] AST 88(H) 13 - 39 U/L 10/27/2024 8:51 AM EDT [facility] ALT 149(H) 7 - 52 U/L 10/27/2024 8:51 AM EDT [facility] Alkaline Phosphatase 26(L) 36 - 125 U/L 10/27/2024 8:51 AM EDT [facility] Total Protein 4.0(L) 6.4 - 8.9 g/dL 10/27/2024 8:51 AM EDT [facility] Albumin 3.0(L) 3.5 - 5.7 g/dL 10/27/2024 8:51 AM EDT [facility] Bilirubin, Indirect 0.37 0.00 - 1.10 mg/dL 10/27/2024 8:51 AM EDT [facility] Plasma 10/27/2024 8:00 AM EDT 10/27/2024 8:20 AM EDT Semaj Mcnair III, MD LAB BLOOD ORDERABLE S Final Result Performing Organization Address [facility] Co de Phone Number [facility] [address] * (ABNORMAL) Lactic Acid, STAT (10/27/2024 8:00 AM EDT) Lactate 0.4(L) 0.5 - 2.2 mmol/L 10/27/2024 8:43 AM EDT [facility] Plasma 10/27/2024 8:00 AM EDT 10/27/2024 8:20 AM EDT Semaj Mcnair III, MD LAB BLOOD ORDERABLE S Final Result Performing Organization Address [facility] Co de Phone Number [facility] [address] * (ABNORMAL) Blood Gas, Arterial, STAT (10/27/2024 8:00 AM EDT) O2 Sat, Arterial 100 10/27/2024 8:23 AM EDT [facility] pH, Arterial 7.36 7.35 - 7.45 10/27/2024 8:23 AM EDT [facility] pCO2, Arterial 37 35 - 45 mm Hg 10/27/2024 8:23 AM EDT [facility] pO2, Arterial 245(H) 80 - 100 mm Hg 10/27/2024 8:23 AM EDT [facility] HCO3, Arterial 22 22 - 26 mmol/L 10/27/2024 8:23 AM EDT [facility] CO2 Content,Arteri al 22(L) 23 - 27 mmol/L 10/27/2024 8:23 AM EDT [facility] Base Excess, Arterial -4.2(L) -2.0 - 3.0 mmol/L 10/27/2024 8:23 AM EDT [facility] %HBO2, Arterial 96.5 95.0 - 98.0 % 10/27/2024 8:23 AM EDT [facility] Carboxyhemoglo bin, Arterial 2.2 % 10/27/2024 8:23 AM EDT [facility] Comment: CARBOXYHEMOGLOBIN (CO) REFERENCE RANGES: Non-Smokers: <2 % Smokers: <8 % TOXIC: >20 % Methemoglobin, Arterial 1.2 0.0 - 1.5 % 10/27/2024 8:23 AM EDT [facility] Reduced hemoglobin, Arterial 0.0 0.0 - 5.0 % 10/27/2024 8:23 AM EDT [facility] Blood, Arterial 10/27/2024 8 :00 AM EDT 10/27/2024 8:19 AM EDT Narrative [facility] - 10/27/2024 8:23 AM EDT Specimen is beyond 15 minutes from time of collection. Results may be compromised. Review results critically. us Kemar Sahni MD LAB BLOOD ORDERABLES Final Result [facility] [address] [id number], [facility] * (ABNORMAL) TEG-Bypass/ECMO/Liver HN (Factor function, Platelet/Fibrin Clot Strength w/Clot Breakdown, Heparinase In All Channels) (10/27/2024 8:00 AM EDT) Citrated Kaolin Reaction Time (TEGECMOLIVER) 7.8 4.6 - 9.1 minutes 10/27/2024 9:39 AM EDT [facility] Citrated Kaolin W/Heparinase Reaction Time (TEGECMOLIVER) 8.0 4.3 - 8.3 minutes 10/27/2024 9:39 AM EDT [facility] Citrated Kaolin Maximum Amplitude (TEGECMOLIVER) 52.7 52.0 - 69.0 mm 10/27/2024 9:39 AM EDT [facility] Citrated Functional Fibrinogen W/Heparinase Maximum Amplitude(TEGEC MOLIVER) 19.0 15.0 - 34.0 mm 10/27/2024 9:39 AM EDT [facility] Citrated Rapid Teg W/Heparinase Maximum Amplitude (TEGECMOLIVER) 49.5(L) 53.0 - 69.0 mm 10/27/2024 9:39 AM EDT [facility] Citrated Kaolin w/Heparinase Percent Lysis (TEGECMOLIVER) 0.0 0.0 - 3.2 % 10/27/2024 9:39 AM EDT [facility] Whole Blood (Citrate) 10/27/2024 8:00 AM EDT 10/27/2024 8:19 AM EDT Kemar Sahni MD LAB BLOOD ORDERABLES Final Result Performing Organization Address [facility] Co de Phone Number [facility] [address] [place] [address] * (ABNORMAL) Katie-Watkins virus VCA IgG Antibody (10/27/2024 8:00 AM EDT) EBV VCA IgG Positive( A) Negative 10/27/2024 11:30 AM EDT [facility] Comment:Presence of detectab le VCA IgG antibodies. 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 EBV IGG NUM 314.00(H) 0.00 - 17.99 U/mL 10/27/2024 11:30 AM EDT [facility] Serum 10/27/2024 8:00 AM EDT 10/27/2024 8:20 AM EDT Kemar Sahni MD LAB BLOOD ORDERABLES Final Result Performing Organization Address City/[facility]/ZIP Co de Phone Number [facility] [address] [place] [address] * Hemoglobin A1c (10/27/2024 8:00 AM EDT) [...] BLOOD ORDERABLES Final Result Performing Organization Address City/[facility] Co de Phone Number [facility] [address] [facility]. [address] * (ABNORMAL) POC Glucose Monitoring Device (10/27/2024 7:59 AM EDT) POC Glucose Monitoring Device 113(H) 70 - 100 mg/dL 10/27/2024 7:59 AM EDT [facility] Blood 10/27/2024 7:59 AM EDT 10/27/2024 7:59 AM EDT Semaj Mcnair III, MD POINT OF CARE TEST ORDERABLES Final Result Performing Organization Address City/[facility] Co de Phone Number [facility] [address] [facility]. [address] * X-ray Abdomen AP view (10/27/2024 [...] Units (10/27/2024 6:16 AM EDT) Product Code N2138V48 HCLL Unit Number [id number] HCLL Dispense Status Presumed Transfused_PT HCLL Blood Expiration Date [id number] HCLL Coding System [id number] HCLL Product Code G4848G18 HCLL Unit Number [id number] HCLL Dispense Status Presumed Transfused_PT HCLL Blood Expiration Date 932001026221 HCLL Coding System [id number] HCLL Blood Bank Product John Pina MD BLOOD BANK PRODUCT ORDERABLES F inal Result Performing Organization Address City/[facility]/ZIP Co de Phone Number HCLL * Prepare Platelets, leukoreduced, 1 Units (10/27/2024 6:16 AM EDT) Product Code I7373X75 HCLL Unit Number [id number] HCLL Dispense Status Presumed Transfused_PT HCLL Blood Expiration Date 637597548554 HCLL Coding System ETIH370 HCLL Blood Bank Product Eber Quinones MD BLOOD BANK PRODUCT ORDER PAL Final Result Performing Organization Address [facility] Co de Phone Number HCLL * Prepare Cryoprecipitate, 1 Units (10/27/2024 6:16 AM EDT) Product Code L3535M11 HCLL Unit Number [id number] HCLL Dispense Status Presumed Transfused_PT HCLL Blood Expiration Date HCLL Coding System [id number] HCLL Product Code M7570J15 HCLL Unit Number [id number] HCLL Dispense Status Presumed Transfused_PT HCLL Blood Expiration Date 729533378200 HCLL Coding System JBEI611 HCLL Blood Bank Product Eber Quinones MD BLOOD BANK PRODUCT ORDER PAL Final Result Performing Organization Address City/[facility]/ZIP Co de Phone Number HCLL * Prepare Fresh Frozen Plasma, 10 Units (10/27/2024 6:16 AM EDT) Product Code W9394T83 HCLL Unit Number [id number] HCLL Dispense Status Presumed Transfused_PT HCLL Blood Expiration Date HCLL Coding System APET540 HCLL Product Code Z4980E11 HCLL Unit Number [id number] HCLL Dispense Status Presumed Transfused_PT HCLL Blood Expiration Date HCLL Coding System LKSL320 HCLL Product Code U7823A32 HCLL Unit Number [id number] HCLL Dispense Status Presumed Transfused_PT HCLL Blood Expiration Date HCLL Coding System RIXK903 HCLL Product Code I3633S75 HCLL Unit Number [id number] HCLL Dispense Status Presumed Transfused_PT HCLL Blood Expiration Date HCLL Coding System MHKB400 HCLL Product Code T2911O00 HCLL Unit Number [id number] HCLL Dispense Status Released from Crossmatch_RE HCLL Blood Expiration Date 117445876541 HCLL Coding System ESYW762 HCLL Product Code P6803F54 HCLL Unit Number [id number] HCLL Dispense Status Released from Crossmatch_RE HCLL Blood Expiration Date HCLL Coding System MGAD060 HCLL Product Code Y6089R52 HCLL Unit Number [id number] HCLL Dispense Status Presumed Transfused_PT HCLL Blood Expiration Date HCLL Coding System NGKM270 HCLL Product Code V8547G89 HCLL Unit Number [id number] HCLL Dispense Status Presumed Transfused_PT HCLL Blood Expiration Date 461608386291 HCLL Coding System IPVR125 HCLL Product Code W0190Q93 HCLL Unit Number [id number] HCLL Dispense Status Presumed Transfused_PT HCLL Blood Expiration Date HCLL Coding System BHBP089 HCLL Product Code C7377W20 HCLL Unit Number [id number] HCLL Dispense Status Presumed Transfused_PT HCLL Blood Expiration Date HCLL Coding System QYEM023 HCLL Blood Bank Product Leandra Og MD BLOOD BANK PRODUCT ORD ERABLES Final Result HCLL * Prepare Platelets, leukoreduced, 1 Units (10/27/2024 6:16 AM EDT) Product Code H9489L70 HCLL Unit Number [id number] HCLL Dispense Status Presumed Transfused_PT HCLL Blood Expiration Date 677753569209 HCLL Coding System SMMW989 HCLL Blood Bank Product Ben Blake MD BLOOD BANK PRODUCT ORDERABLES Final Result Performing Organization Address City/[facility] Co de Phone Number HCLL * Prepare Fresh Frozen Plasma (10/27/2024 6:15 AM EDT) Product Code G2502F68 HCLL Unit Number [id number] HCLL Dispense Status Presumed Transfused_PT HCLL Blood Expiration Date HCLL Coding System CLUO439 HCLL Product Code B1445X66 HCLL Unit Number [id number] HCLL Dispense Status Released from Crossmatch_RE HCLL Blood Expiration Date HCLL Coding System ZPYE185 HCLL Product Code F0379Q02 HCLL Unit Number [id number] HCLL Dispense Status Presumed Transfused_PT HCLL Blood Expiration Date HCLL Coding System BJLI014 HCLL Product Code I0760Y28 HCLL Unit Number [id number] HCLL Dispense Status Presumed Transfused_PT HCLL Blood Expiration Date HCLL Coding System DCQZ596 HCLL Product Code Q1521E78 HCLL Unit Number [id number] HCLL Dispense Status Released from Crossmatch_RE HCLL Blood Expiration Date HCLL Coding System GRJP066 HCLL us Attending Provider Unknown BLOOD BANK PRODUCT OR DERABLES Final Result Performing Organization Address City/[facility] Co de Phone Number HCLL * Prepare RBC, leukoreduced (10/27/2024 6:15 AM EDT) Product Code Q8532F96 HCLL Unit Number [id number] HCLL Dispense Status Presumed Transfused_PT HCLL Blood Expiration Date 368393832563 HCLL Coding System RKDT783 HCLL Product Code F6083L85 HCLL Unit Number [id number] HCLL Dispense Status Released from Crossmatch_RE HCLL Blood Expiration Date HCLL Coding System BLCK936 HCLL Product Code U8290T94 HCLL Unit Number [id number] HCLL Dispense Status Released from Crossmatch_RE HCLL Blood Expiration Date 181742647066 HCLL Coding System EVPI873 HCLL Product Code L0869G85 HCLL Unit Number [id number] HCLL Dispense Status Released from Crossmatch_RE HCLL Blood Expiration Date 219429099957 HCLL Coding System SUCO228 HCLL Product Code U5127N42 HCLL Unit Number [id number] HCLL Dispense Status Released from Crossmatch_RE HCLL Blood Expiration Date 577400983403 HCLL Coding System GFKJ371 HCLL us Attending Provider Unknown BLOOD BANK PRODUCT OR DERABLES Final Result Performing Organization Address City/[facility] Co de Phone Number HCLL * Prepare RBC, leukoreduced, 10 Units (10/27/2024 6:15 AM EDT) Product Code P2684Y93 HCLL Unit Number [id number] HCLL Dispense Status Presumed Transfused_PT HCLL Blood Expiration Date 756965343047 HCLL Coding System GRXM539 HCLL Product Code C1141M36 HCLL Unit Number [id number] HCLL Dispense Status Presumed Transfused_PT HCLL Blood Expiration Date 823235319132 HCLL Coding System AQGY703 HCLL Product Code T2428H15 HCLL Unit Number [id number] HCLL Dispense Status Presumed Transfused_PT HCLL Blood Expiration Date 689828735438 HCLL Coding System MAAL668 HCLL Product Code A7071U38 HCLL Unit Number [id number] HCLL Dispense Status Presumed Transfused_PT HCLL Blood Expiration Date 893428924205 HCLL Coding System CZPW175 HCLL Product Code P3370Y54 HCLL Unit Number [id number] HCLL Dispense Status Presumed Transfused_PT HCLL Blood Expiration Date 898880813800 HCLL Coding System GMHG336 HCLL Product Code K6673O81 HCLL Unit Number [id number] HCLL Dispense Status Presumed Transfused_PT HCLL Blood Expiration Date 649452379995 HCLL Coding System HXKM558 HCLL Product Code S6306S55 HCLL Unit Number [id number] HCLL Dispense Status Presumed Transfused_PT HCLL Blood Expiration Date 485577985929 HCLL Coding System NSFX488 HCLL Product Code Y8220R47 HCLL Unit Number [id number] HCLL Dispense Status Presumed Transfused_PT HCLL Blood Expiration Date 349738773601 HCLL Coding System MFXH900 HCLL Product Code M6244O70 HCLL Unit Number [id number] HCLL Dispense Status Presumed Transfused_PT HCLL Blood Expiration Date 982778746237 HCLL Coding System IHHP939 HCLL Product Code R4943N63 HCLL Unit Number [id number] HCLL Dispense Status Presumed Transfused_PT HCLL Blood Expiration Date 113110822185 HCLL Coding System XZQW040 HCLL Blood Bank Product us Leandra Og MD BLOOD BANK PRODUCT ORD ERABLES Final Result HCLL * Transfuse Platelets (10/27/2024 6:09 AM EDT) us Ben Blake MD NURSING TREATMENT ORDERABLES - BLOOD ADMIN Final Result * (ABNORMAL) Arterial Blood Gas Panel (10/27/2024 6:09 AM EDT) O2Sat (ABGP) 100 10/27/2024 6:17 AM EDT [facility] pH (ABGP) 7.30(L) 7.35 - 7.45 10/27/2024 6:17 AM EDT [facility] PCO2 (ABGP) 41 35 - 45 mm Hg 10/27/2024 6:17 AM EDT [facility] PO2 (ABGP) 192(H) 80 - 100 mm Hg 10/27/2024 6:17 AM T [facility] HCO3 (ABGP) 21(L) 22 - 26 mmol/L 10/27/2024 6:17 AM T [facility] CO2 Content (ABGP) 22(L) 23 - 27 mmol/L 10/27/2024 6:17 AM T [facility] Base Excess (ABGP) -5.7(L) -2.0 - 3.0 mmol/L 10/27/2024 6:17 AM EDT [facility] Sodium (ABGP) 138 136 - 146 mEq/L 10/27/2024 6:17 AM T [facility] Potassium (ABGP) 3.3(L) 3.5 - 5.0 mEq/L 10/27/2024 6:17 AM [facility] Comment:In the event of in-v itro hemolysis, potassium results may be falsely elevated. Always interpret lab results in conjunction with clinical findings. If hemolysis is suspected, a serum sample may be collected for repeat assessment of potassium. Calcium, Free (ABGP) 5.28 4.50 - 5.30 mg/dL 10/27/2024 6:17 AM T [facility] Glucose (ABGP) 112(H) 70 - 100 mg/dL 10/27/2024 6:17 AM [facility] Comment:There is interferenc e with whole blood glucose results on this method when Hematocrit is <25% or >60%. HCT (ABGP) 20.0(L) 40.0 - 52.0 % 10/27/2024 6:17 AM T [facility] HGB (ABGP) 6.5(L) 14.0 - 18.0 g/dL 10/27/2024 6:17 AM EDT [facility] %HBO2 (ABGP) 96.8 95.0 - 98.0 % 10/27/2024 6:17 AM EDT [facility] Carboxyhgb (ABGP) 2.1 % 025 6:17 AM EDT [facility] Comment: CARBOXYHEMOGLOBIN (CO) REFERENCE RANGES: Non-Smokers: <2 % Smokers: <8 % TOXIC: >20 % Methemoglobin (ABGP) 1.0 0.0 - 1.5 % 10/27/2024 6:17 AM EDT [facility] Reduced Hemoglobin (ABGP) 0.2 0.0 - 5.0 % 10/27/2024 6:17 AM EDT [facility] Lactic Acid (ABGP) 0.4(L) 0.5 - 1.6 mmol/L 10/27/2024 6:17 AM EDT [facility] Blood, Arterial 10/27/2024 6 :09 AM EDT 10/27/2024 6:14 AM EDT Ben Blake MD LAB BLOOD ORDERABLES Final Re sult [facility] [address] [place] [address], [facility] * Transfuse Fresh Frozen Plasma [...] Monitoring Device (10/27/2024 4:46 AM EDT) Pathologist [facility] POC Glucose Monitoring Device 124(H) 70 - 100 mg/dL 10/27/2024 4:47 AM EDT [facility] Blood 10/27/2024 4:46 AM EDT 10/27/2024 4:47 AM EDT Semaj Mcnair III, MD POINT OF CARE TEST ORDERABLES Final Result [facility] [address] [address], [facility] * Transfuse Platelets (10/27/2024 4:24 AM EDT) Ben Blake MD NURSING TREATMENT ORDERABLES - BLOOD ADMIN Final Result * Transfuse Fresh Frozen Plasma (10/27/2024 4:07 AM EDT) Ben Blake MD NURSING TREATMENT ORDERABLES - BLOOD ADMIN Final Result * Transfuse RBC (10/27/2024 3:52 AM EDT) Result [facility] Ben Blake MD NURSING TREATMENT ORDERABLES - BLOOD ADMIN Final Result * (ABNORMAL) Arterial Blood Gas Panel (10/27/2024 3:07 AM EDT) O2Sat (ABGP) 100 10/27/2024 3:21 AM EDT [facility] pH (ABGP) 7.32(L) 7.35 - 7.45 10/27/2024 3:21 AM EDT [facility] PCO2 (ABGP) 38 35 - 45 mm Hg 10/27/2024 3:21 AM EDT [facility] PO2 (ABGP) 176(H) 80 - 100 mm Hg 10/27/2024 3:21 AM EDT [facility] HCO3 (ABGP) 20(L) 22 - 26 mmol/L 10/27/2024 3:21 AM EDT [facility] CO2 Content (ABGP) 21(L) 23 - 27 mmol/L 10/27/2024 3:21 AM EDT [facility] Base Excess (ABGP) -6.0(L) -2.0 - 3.0 mmol/L 10/27/2024 3:21 AM EDT [facility] Sodium (ABGP) 138 136 - 146 mEq/L 10/27/2024 3:21 AM EDT [facility] Potassium (ABGP) 3.0(L) 3.5 - 5.0 mEq/L 10/27/2024 3:21 AM [facility] Comment:In the event of in-v itro hemolysis, potassium results may be falsely elevated. Always interpret lab results in conjunction with clinical findings. If hemolysis is suspected, a serum sample may be collected for repeat assessment of potassium. Calcium, Free (ABGP) 5.28 4.50 - 5.30 mg/dL 10/27/2024 3:21 AM EDT [facility] Glucose (ABGP) 108(H) 70 - 100 mg/dL 10/27/2024 3:21 AM T [facility] Comment:There is interferenc e with whole blood glucose results on this method when Hematocrit is <25% or >60%. HCT (ABGP) 22.0(L) 40.0 - 52.0 % 10/27/2024 3:21 AM EDT [facility] HGB (ABGP) 7.3(L) 14.0 - 18.0 g/dL 10/27/2024 3:21 AM T [facility] %HBO2 (ABGP) 97.3 95.0 - 98.0 % 10/27/2024 3:21 AM T [facility] Carboxyhgb (ABGP) 1.9 % 025 3:21 AM T [facility] Comment: CARBOXYHEMOGLOBIN (CO) REFERENCE RANGES: Non-Smokers: <2 % Smokers: <8 % TOXIC: >20 % Methemoglobin (ABGP) 0.8 0.0 - 1.5 % 10/27/2024 3:21 AM EDT [facility] Reduced Hemoglobin (ABGP) 0.0 0.0 - 5.0 % 10/27/2024 3:21 AM T [facility] Lactic Acid (ABGP) 0.3(L) 0.5 - 1.6 mmol/L 10/27/2024 3:21 AM [facility] Blood, Arterial 10/27/2024 3 :07 AM EDT 10/27/2024 3:14 AM EDT us Ben Blake MD LAB BLOOD ORDERABLES Final Re sult [facility] [id number] [address], [facility] * Surgical Pathology Exam (10/27/2024 2:38 AM EDT) Tissue LEFT KIDNEY STRUCTURE / Unknown 10/27/2024 2:38 AM EDT Narrative [facility] - 10/27/2024 12:00 AM EDT CASE: [id number] PATIENT: BLAIR GILBERT Clinical History: Transplant kidney with bile duct reconstruction Pre-Operative Diagnosis: Acute kidney injury superimposed on CKD Post-Operative Diagnosis: None Given Specimen(s) Submitted: A. baseline renal biopsy ; B. right lobe liver biopsy; C. left lobe liver biopsy CPT Code(s): 65362 X 1; 80422 X 2; 95543 X 4 Additional Information: FINAL DIAGNOSIS: A. [...] submitted between blue biopsy sponges in cassette [id number] B1-B2. (NAA Mckeon/nereida) C. Received in formalin, labeled with the patient's name Blair Gilbert and left lobe liver biopsy are two green-georges tissue cores measuring 1.2 and 1.4 cm in length, each with a diameter of 0.1 cm, which are entirely submitted between blue biopsy sponges in cassette [id number] C1-C2. (NAA Mckeon/ns) Microscopic Description: I, the attending pathologist, have personally reviewed all prosector/resident work and pathology slides to determine final diagnosis. Control Materials Reacted Appropriately. Final Diagnosis performed by CLARE FALL MD Pathologist Electronically signed 10/31/2024 01:07:09 PM The Pathologist signing this report is located at [facility], [address] [place] [address], [id number], , CLIA ID: [id number] ADDENDUM: A. Kidney, allograft, baseline, wedge biopsy: [...] Pathologist signing this report is located at [facility], [address] [place] [address], [address], , CLIA ID: [id number] us Kemar Sahni MD PATHOLOGY/CYTOLOGY ORDERABL ES Edited Result - Final [facility] * Anaerobic culture (10/27/2024 2:15 AM EDT) Culture Result No Anaerobes Isolated in 5 Days [facility] Fluid SPECIMEN FROM KIDNEY / Unknown 10/27/2024 2:15 AM EDT 10/27/2024 4:24 AM EDT Narrative [facility]ALTH LAB - 10/31/2024 11:43 AM EDT 1) perfusate us Semaj Mcnair III, MD MICROBIOLOGY - GENE RAL ORDERABLES Final Result [facility] [address] [facility]. [address] * Fungus culture (10/27/2024 2:15 AM EDT) Culture Result No Fungus Isolated At 4 Weeks [facility] Fluid SPECIMEN FROM KIDNEY / Unknown 10/27/2024 2:15 AM EDT 10/27/2024 4:24 AM EDT Narrative [facility] - 11/24/2024 7:52 AM EDT 1) perfusate us Semaj Mcnair III, MD MICROBIOLOGY - GENE RAL ORDERABLES Final Result Performing Organization Address [facility] Co de Phone Number [facility] [address] [facility]. [address] * Routine Culture plus Stain (10/27/2024 2:15 AM EDT) Gram Stain Result No Polymorphonuclear Leukocytes Seen [facility] Gram Stain Result No Organisms Seen; [facility] Culture Result No Growth After 3 Days [facility] Fluid SPECIMEN FROM KIDNEY / Unknown 10/27/2024 2:15 AM EDT 10/27/2024 4:24 AM EDT [facility] - 10/30/2024 9:26 AM EDT 1) perfusate us Semaj Mcnair III, MD MICROBIOLOGY - GENE RAL ORDERABLES Final Result [facility] [address] [facility]. [address] * Transfuse Platelets Transfusion Rate: Per [...] a Baseline TEG) (10/27/2024 1:51 AM EDT) [facility] Citrated Kaolin Reaction Time (TEGHEPARINASE) 10.6(H) 4.6 - 9.1 minutes 10/27/2024 2:44 AM EDT [facility] Citrated Rapid Teg Maximum Amplitude (TEGHEPARINASE) 42.3(L) 52.0 - 70.0 mm 10/27/2024 2:44 AM EDT [facility] Citrated Functional Fibrinogen Maximum Amplitude (TEGHEPARINASE) 15.0 15.0 - 32.0 mm 10/27/2024 2:44 AM EDT [facility] Citrated Kaolin W/Heparinase Reaction Time (TEGHEPARINASE) 10.5(H) 4.3 - 8.3 minutes 10/27/2024 2:44 AM EDT [facility] Citrated Kaolin K-Time (TEGHEPARINASE) 2.9(A) 0.8 - 2.1 minutes 10/27/2024 2:44 AM EDT [facility] Citrated Kaolin Angle (TEGHEPARINASE) 60.4(A) 63.0 - 78.0 degrees 10/27/2024 2:44 AM EDT [facility] Citrated Kaolin Maximum Amplitude (TEGHEPARINASE) 42.9(L) 52.0 - 69.0 mm 10/27/2024 2:44 AM EDT [facility] Citrated Functional Fibrinogen- Fibrinogen Level (TEGHEPARINASE) 273.7(L) 278.0 - 581.0 mg/dL 10/27/2024 2:44 AM EDT [facility] Whole Blood (Citrate) 10/27/2024 1:51 AM EDT 10/27/2024 2:03 AM EDT us John Pina MD LAB BLOOD ORDERABLES Final Resu lt Performing Organization Address [facility] de Phone Number [facility] [address] * (ABNORMAL) POC Glucose Monitoring Device (10/27/2024 1:50 AM EDT) POC Glucose Monitoring Device 121(H) 70 - 100 mg/dL 10/27/2024 1:51 AM EDT [facility] Blood 10/27/2024 1:50 AM EDT 10/27/2024 1:51 AM EDT us Semaj Mcnair III, MD POINT OF CARE TEST ORDERABLES Final Result Performing Organization Address [facility] de Phone Number [facility] [address] [facility]. [address] * Transfuse Cryoprecipitate Transfusion Rate: Per dept routine (10/27/2024 1:25 AM EDT) us John Pina MD NURSING TREATMENT ORDERABLES - BLOOD ADMIN Final Result Performing Organization Address [facility] de Phone Number EXTERNAL * Transfuse Cryoprecipitate Transfusion Rate: Per dept routine, 1 Units (10/27/2024 1:25 AM EDT) us John Pina MD NURSING TREATMENT ORDERABLES - BLOOD ADMIN Final Result Performing Organization Address [facility] de Phone Number EXTERNAL * (ABNORMAL) POC Glucose Monitoring Device (10/27/2024 1:21 AM EDT) POC Glucose Monitoring Device 123(H) 70 - 100 mg/dL 10/27/2024 1:22 AM EDT [facility] Blood 10/27/2024 1:21 AM EDT 10/27/2024 1:21 AM EDT Semaj Mcnair III, MD POINT OF CARE TEST ORDERABLES Final Result Performing Organization Address [facility] de Phone Number [facility] [address] * Transfuse Fresh Frozen Plasma Transfusion Rate: Per dept routine (10/27/2024 1:03 AM EDT) us John Pina MD NURSING TREATMENT ORDERABLES - BLOOD ADMIN Final Result Performing Organization Address [facility] de Phone Number EXTERNAL * Transfuse Fresh Frozen Plasma Transfusion Rate: Per dept routine, 1 Units (10/27/2024 1:03 AM EDT) us John Pina MD NURSING TREATMENT ORDERABLES - BLOOD ADMIN Final Result Performing Organization Address [facility] de Phone Number EXTERNAL * Calcium Free, Serum (10/27/2024 12:13 AM EDT) [facility] Signature Free Calcium, Ser 5.20 4.40 - 5.40 mg/dL 10/27/2024 12:37 AM EDT [facility] Comment:Free calcium levels vary inversely with pH by approximately 5% for each 0.1 unit of pH change. Assay results have been normalized to pH = 7.40. Serum 10/27/2024 12:1 3 AM EDT 10/27/2024 12:29 AM EDT Narrative [facility] - 10/27/2024 12:37 AM EDT This test has been developed and its performance characteristics determined by [facility] which is certified under the [...] ORDERABLES Final Resu lt Performing Organization Address [facility] de Phone Number [facility] [address] * (ABNORMAL) Blood Gas, Arterial, STAT (10/27/2024 12:13 AM EDT) O2 Sat, Arterial 100 10/27/2024 12:23 AM EDT [facility] FIO2 30 10/27/2024 12:23 AM EDT [facility] pH, Arterial 7.32(L) 7.35 - 7.45 10/27/2024 12:23 AM EDT [facility] pCO2, Arterial 37 35 - 45 mm Hg 10/27/2024 12:23 AM EDT [facility] pO2, Arterial 137(H) 80 - 100 mm Hg 10/27/2024 12:23 AM EDT [facility] HCO3, Arterial 20(L) 22 - 26 mmol/L 10/27/2024 12:23 AM EDT [facility] CO2 Content,Arteri al 20(L) 23 - 27 mmol/L 10/27/2024 12:23 AM EDT [facility] Base Excess, Arterial -6.4(L) -2.0 - 3.0 mmol/L 10/27/2024 12:23 AM EDT [facility] %HBO2, Arterial 96.2 95.0 - 98.0 % 10/27/2024 12:23 AM EDT [facility] Carboxyhemoglo bin, Arterial 1.9 % 10/27/2024 12:23 AM EDT [facility] Comment: CARBOXYHEMOGLOBIN (CO) REFERENCE RANGES: Non-Smokers: <2 % Smokers: <8 % TOXIC: >20 % Methemoglobin, Arterial 1.5 0.0 - 1.5 % 10/27/2024 12:23 AM EDT [facility] Reduced hemoglobin, Arterial 0.4 0.0 - 5.0 % 10/27/2024 12:23 AM EDT [facility] Blood, Arterial 10/27/2024 1 2:13 AM EDT 10/27/2024 12:18 AM EDT us John Pina MD LAB BLOOD ORDERABLES Final Resu lt [facility] [address] [place] [address], [facility] * (ABNORMAL) TEG-Bypass/ECMO/Liver HN (Factor function, Platelet/Fibrin Clot Strength w/Clot Breakdown, Heparinase In All Channels) (10/27/2024 12:13 AM EDT) Citrated Kaolin Reaction Time (TEGECMOLIVER) 9.1 4.6 - 9.1 minutes 10/27/2024 1:43 AM EDT [facility] Citrated Kaolin W/Heparinase Reaction Time (TEGECMOLIVER) 9.7(H) 4.3 - 8.3 minutes 10/27/2024 1:43 AM EDT [facility] Citrated Kaolin Maximum Amplitude (TEGECMOLIVER) <40.0(L) 52.0 - 69.0 mm 10/27/2024 1:43 AM EDT [facility] Citrated Functional Fibrinogen W/Heparinase Maximum Amplitude(TEGEC MOLIVER) 11.9(L) 15.0 - 34.0 mm 10/27/2024 1:43 AM EDT [facility] Citrated Rapid Teg W/Heparinase Maximum Amplitude (TEGECMOLIVER) 31.6(L) 53.0 - 69.0 mm 10/27/2024 1:43 AM EDT [facility] Citrated Kaolin w/Heparinase Percent Lysis (TEGECMOLIVER) 0.0 0.0 - 3.2 % 10/27/2024 1:43 AM EDT [facility] Whole Blood (Citrate) 10/27/2024 12:13 AM EDT 10/27/2024 12:18 AM EDT us Kemar Sahni MD LAB BLOOD ORDERABLES Final Result [facility] [address] * (ABNORMAL) Lactic Acid (10/27/2024 12:13 AM EDT) Lactate 0.2(L) 0.5 - 2.2 mmol/L 10/27/2024 12:59 AM EDT [facility] Plasma 10/27/2024 12:1 3 AM EDT 10/27/2024 12:31 AM EDT Kemar Sahni MD LAB BLOOD ORDERABLES Final Result [facility] [address] [facility]. [address] * Magnesium (10/27/2024 12:13 AM EDT) Magnesium 1.8 1.5 - 2.5 mg/dL 10/27/2024 12:52 AM EDT [facility] Plasma 10/27/2024 12:1 3 AM EDT 10/27/2024 12:29 AM EDT Kemar Sahni MD LAB BLOOD ORDERABLES Final Result Performing Organization Address [facility] de Phone Number [facility] [address] [facility]. [address] * (ABNORMAL) Hepatic Function Panel (10/27/2024 12:13 AM EDT) Total Bilirubin 1.6(H) 0.0 - 1.5 mg/dL 10/27/2024 12:52 AM EDT [facility] Bilirubin, Direct 1.17(H) 0.00 - 0.40 mg/dL 10/27/2024 12:52 AM EDT [facility] AST 157(H) 13 - 39 U/L 10/27/2024 12:52 AM EDT [facility] ALT 261(H) 7 - 52 U/L 10/27/2024 12:52 AM EDT [facility] Alkaline Phosphatase 26(L) 36 - 125 U/L 10/27/2024 12:52 AM EDT [facility] Total Protein 3.8(L) 6.4 - 8.9 g/dL 10/27/2024 12:52 AM EDT [facility] Albumin 2.8(L) 3.5 - 5.7 g/dL 10/27/2024 12:52 AM EDT [facility] Bilirubin, Indirect 0.43 0.00 - 1.10 mg/dL 10/27/2024 12:52 AM EDT [facility] Plasma 10/27/2024 12:1 3 AM EDT 10/27/2024 12:29 AM EDT Kemar Sahni MD LAB BLOOD ORDERABLES Final Result Performing Organization Address [facility] de Phone Number [facility] [address] [facility]. [address] * (ABNORMAL) Protime-INR (10/27/2024 12:13 AM EDT) Protime 18.6(H) 12.1 - 15.1 seconds 10/27/2024 12:43 AM EDT [facility] INR 1.5(H) 0.9 - 1.1 10/27/2024 12:43 AM EDT [facility] Comment: RECOMMENDED THERAPEUTIC RANGES USING INR : Stable oral anticoagulant therapy: 2.0 - 3.0 Mechanical prosthetic heart valve: 2.5 - 3.5 Recurrent acute myocardial infarction: 2.5 - 3.5 Plasma 10/27/2024 12:1 3 AM EDT 10/27/2024 12:29 AM EDT Kemar Sahni MD LAB BLOOD ORDERABLES Final Result Performing Organization Address [facility] de Phone Number [facility] [address] [facility]. [address] * (ABNORMAL) CBC (10/27/2024 12:13 AM EDT) WBC 5.0 3.8 - 10.8 10E3/uL 10/27/2024 12:59 AM EDT [facility] RBC 2.70(L) 4.20 - 5.80 10E6/uL 10/27/2024 12:59 AM EDT [facility] Hemoglobin 8.5(L) 13.2 - 17.1 g/dL 10/27/2024 12:59 AM EDT [facility] Hematocrit 23.9(L) 38.5 - 50.0 % 10/27/2024 12:59 AM EDT [facility] MCV 88.5 80.0 - 100.0 fL 10/27/2024 12:59 AM EDT [facility] MCH 31.5 27.0 - 33.0 pg 10/27/2024 12:59 AM EDT [facility] MCHC 35.6 32.0 - 36.0 g/dL 10/27/2024 12:59 AM EDT [facility] RDW 20.6(H) 11.0 - 15.0 % 10/27/2024 12:59 AM EDT [facility] Platelets 35(L) 140 - 400 10E3/uL 10/27/2024 12:59 AM EDT [facility] Comment: CNV Specimen checked for clots. None detected. MPV 7.6 7.5 - 11.5 fL 10/27/2024 12:59 AM EDT [facility] Whole Blood 10/27/2024 12:1 3 AM EDT 10/27/2024 12:29 AM EDT Kemar Sahni MD LAB BLOOD ORDERABLES Final Result [facility] [address] * (ABNORMAL) Renal Function Panel w/EGFR (10/27/2024 12:13 AM EDT) Sodium 141 133 - 146 mmol/L 10/27/2024 12:52 AM EDT [facility] Potassium 3.2(L) 3.5 - 5.3 mmol/L 10/27/2024 12:52 AM EDT [facility] Chloride 109 98 - 110 mmol/L 10/27/2024 12:52 AM EDT [facility] CO2 21 21 - 33 mmol/L 10/27/2024 12:52 AM EDT [facility] Anion Gap 11 3 - 16 mmol/L 10/27/2024 12:52 AM EDT [facility] BUN 64(H) 7 - 25 mg/dL 10/27/2024 12:52 AM EDT [facility] Creatinine 2.58(H) 0.60 - 1.30 mg/dL 10/27/2024 12:52 AM EDT [facility] Glucose 126(H) 70 - 100 mg/dL 10/27/2024 12:52 AM EDT [facility] Calcium 8.9 8.6 - 10.3 mg/dL 10/27/2024 12:52 AM EDT [facility] Phosphorus 5.3(H) 2.1 - 4.7 mg/dL 10/27/2024 12:52 AM EDT [facility] Albumin 2.8(L) 3.5 - 5.7 g/dL 10/27/2024 12:52 AM EDT [facility] Osmolality, Calculated 312(H) 278 - 305 mOsm/kg 10/27/2024 12:52 AM EDT [facility] EGFR 31 10/27/2024 12:52 AM EDT [facility] Comment:As of 2021, the estimated GFR [...] Final Result [facility] [address] [place], [place] [address] * (ABNORMAL) POC Glucose Monitoring Device (10/27/2024 12:08 AM EDT) POC Glucose Monitoring Device 121(H) 70 - 100 mg/dL 10/27/2024 12:08 AM EDT [facility] Blood 10/27/2024 12:0 8 AM EDT 10/27/2024 12:08 AM EDT us Semaj Mcnair III, MD POINT OF CARE TEST ORDERABLES Final Result Performing Organization Address [facility] de Phone Number [facility] [address] * (ABNORMAL) POC Glucose Monitoring Device (10/26/2024 11:15 PM EDT) POC Glucose Monitoring Device 120(H) 70 - 100 mg/dL 10/26/2024 11:15 PM EDT [facility] Blood 10/26/2024 11:1 5 PM EDT 10/26/2024 11:15 PM EDT us Semaj Mcnair III, MD POINT OF CARE TEST ORDERABLES Final Result Performing Organization Address [facility] de Phone Number [facility] [address] * (ABNORMAL) TEG-Bypass/ECMO/Liver HN (Factor function, Platelet/Fibrin Clot Strength w/Clot Breakdown, Heparinase In All Channels) (10/26/2024 10:36 PM EDT) Citrated Kaolin Reaction Time (TEGECMOLIVER) 10.0(H) 4.6 - 9.1 minutes 10/26/2024 11:53 PM EDT [facility] Citrated Kaolin W/Heparinase Reaction Time (TEGECMOLIVER) 10.2(H) 4.3 - 8.3 minutes 10/26/2024 11:53 PM EDT [facility] Citrated Kaolin Maximum Amplitude (TEGECMOLIVER) <40.0(L) 52.0 - 69.0 mm 10/26/2024 11:53 PM EDT [facility] Citrated Functional Fibrinogen W/Heparinase Maximum Amplitude(TEGEC MOLIVER) 11.3(L) 15.0 - 34.0 mm 10/26/2024 11:53 PM EDT [facility] Citrated Rapid Teg W/Heparinase Maximum Amplitude (TEGECMOLIVER) 41.8(L) 53.0 - 69.0 mm 10/26/2024 11:53 PM EDT [facility] Citrated Kaolin w/Heparinase Percent Lysis (TEGECMOLIVER) 0.0 0.0 - 3.2 % 10/26/2024 11:53 PM EDT [facility] Whole Blood (Citrate) 10/26/2024 10:36 PM EDT 10/26/2024 10:43 PM EDT Kemar Sahni MD LAB BLOOD ORDERABLES Final Result Performing Organization Address City/[facility]/ZIP Co de Phone Number [facility] [address] [facility]. [address] * (ABNORMAL) POC Glucose Monitoring Device (10/26/2024 10:14 PM EDT) POC Glucose Monitoring Device 124(H) 70 - 100 mg/dL 10/26/2024 11:11 PM EDT [facility] Blood 10/26/2024 10:1 4 PM EDT 10/26/2024 11:11 PM EDT Semaj Mcnair III, MD POINT OF CARE TEST ORDERABLES Final Result Performing Organization Address City/[facility]/ZIP Co de Phone Number [facility] [address] [facility]. [address] * (ABNORMAL) POC Glucose Monitoring Device (10/26/2024 9:16 PM EDT) POC Glucose Monitoring Device 119(H) 70 - 100 mg/dL 10/26/2024 9:18 PM EDT [facility] Blood 10/26/2024 9:16 PM EDT 10/26/2024 9:18 PM EDT us Semaj Mcnair III, MD POINT OF CARE TEST ORDERABLES Final Result [facility] [address] * (ABNORMAL) POC Glucose Monitoring Device (10/26/2024 8:05 PM EDT) POC Glucose Monitoring Device 113(H) 70 - 100 mg/dL 10/26/2024 8:06 PM EDT [facility] Blood 10/26/2024 8:05 PM EDT 10/26/2024 8:06 PM EDT Semaj Mcnair III, MD POINT OF CARE TEST ORDERABLES Final Result Performing Organization Address [facility] Co de Phone Number [facility] [address] * (ABNORMAL) POC Glucose Monitoring Device (10/26/2024 7:02 PM EDT) POC Glucose Monitoring Device 111(H) 70 - 100 mg/dL 10/26/2024 7:03 PM EDT [facility] Blood 10/26/2024 7:02 PM EDT 10/26/2024 7:03 PM EDT Semaj Mcnair III, MD POINT OF CARE TEST ORDERABLES Final Result Performing Organization Address [facility] de Phone Number [facility] [address] [facility]. [address] * Transfuse Cryoprecipitate Transfusion Rate: Per dept routine (10/26/2024 6:39 PM EDT) John Pina MD NURSING TREATMENT ORDERABLES - BLOOD ADMIN Final Result Performing Organization Address City/[facility] Co de Phone Number EXTERNAL * Transfuse Cryoprecipitate Transfusion Rate: Per dept routine, 1 Units (10/26/2024 6:39 PM EDT) John Pina MD NURSING TREATMENT ORDERABLES - BLOOD ADMIN Final Result Performing Organization Address City/[facility]/ZIP Co de Phone Number EXTERNAL * (ABNORMAL) POC Glucose Monitoring Device (10/26/2024 6:33 PM EDT) POC Glucose Monitoring Device 110(H) 70 - 100 mg/dL 10/26/2024 6:34 PM EDT [facility] Blood 10/26/2024 6:33 PM EDT 10/26/2024 6:34 PM EDT us Semaj Mcnair III, MD POINT OF CARE TEST ORDERABLES Final Result [facility] [address] [facility]. [address] * Transfuse Cryoprecipitate Transfusion Rate: Per dept routine (10/26/2024 6:22 PM EDT) us John Pina MD NURSING TREATMENT ORDERABLES - BLOOD ADMIN Final Result Performing Organization Address City/[facility]/ZIP Co de Phone Number EXTERNAL * Transfuse Cryoprecipitate Transfusion Rate: Per dept routine, 1 Units (10/26/2024 6:22 PM EDT) us John Pina MD NURSING TREATMENT ORDERABLES - BLOOD ADMIN Final Result Performing Organization Address City/[facility] Co de Phone Number EXTERNAL * (ABNORMAL) POC Glucose Monitoring Device (10/26/2024 6:17 PM EDT) POC Glucose Monitoring Device 104(H) 70 - 100 mg/dL 10/26/2024 6:18 PM EDT [facility] Blood 10/26/2024 6:17 PM EDT 10/26/2024 6:18 PM EDT us Semaj Mcnair III, MD POINT OF CARE TEST ORDERABLES Final Result Performing Organization Address City/[facility] Co de Phone Number [facility] [address] * (ABNORMAL) POC Glucose Monitoring Device (10/26/2024 4:58 PM EDT) POC Glucose Monitoring Device 115(H) 70 - 100 mg/dL 10/26/2024 4:59 PM EDT [facility] Blood 10/26/2024 4:58 PM EDT 10/26/2024 4:58 PM EDT Semaj Mcnair III, MD POINT OF CARE TEST ORDERABLES Final Result Performing Organization Address [facility] Co de Phone Number [facility] [address] [place] [address] * (ABNORMAL) Calcium Free, Serum (10/26/2024 4:42 PM EDT) Free Calcium, Ser 5.67(H) 4.40 - 5.40 mg/dL 10/26/2024 4:55 PM EDT [facility] Comment:Free calcium levels vary inversely with pH by approximately 5% for each 0.1 unit of pH change. Assay results have been normalized to pH = 7.40. Serum 10/26/2024 4:42 PM EDT 10/26/2024 4:47 PM EDT Narrative [facility] - 10/26/2024 4:55 PM EDT This test has been developed and its performance characteristics determined by [facility] which is certified under the [...] ORDERABLES Final Resu lt Performing Organization Address City/[facility]/ZIP Co de Phone Number [facility] [address] * Repeat Crossmatch (Recipient Sample) (10/26/2024 4:42 PM EDT) Repeat Cx - Recipient The request and specimen(s) for this test have been received and transported to the [facility] at [address] [place] [address]. The [facility] will report results directly to the client. 10/26/2024 4:49 PM EDT [facility] Whole Blood 10/26/2024 4:42 PM EDT 10/26/2024 4:49 PM EDT Narrative [facility] - 10/26/2024 4:49 PM EDT To be sent to [facility] [id number] cross match with Blair Gilbert Sveta Judge MD LAB BLOOD ORDERABLES Final Resu lt [facility] [address] * (ABNORMAL) Lactic Acid (10/26/2024 4:42 PM EDT) Lactate 0.3(L) 0.5 - 2.2 mmol/L 10/26/2024 5:19 PM EDT [facility] Plasma 10/26/2024 4:42 PM EDT 10/26/2024 4:47 PM EDT Kemar Sahni MD LAB BLOOD ORDERABLES Final Result Performing Organization Address City/[facility]/ZIP Co de Phone Number [facility] [address] [facility]. [address] * Magnesium (10/26/2024 4:42 PM EDT) Magnesium 2.0 1.5 - 2.5 mg/dL 10/26/2024 5:24 PM EDT [facility] Plasma 10/26/2024 4:42 PM EDT 10/26/2024 4:47 PM EDT Kemar Sahni MD LAB BLOOD ORDERABLES Final Result [facility] [address] * (ABNORMAL) Hepatic Function Panel (10/26/2024 4:42 PM EDT) Total Bilirubin 2.3(H) 0.0 - 1.5 mg/dL 10/26/2024 5:24 PM EDT [facility] Bilirubin, Direct 1.85(H) 0.00 - 0.40 mg/dL 10/26/2024 5:24 PM EDT [facility] AST 374(H) 13 - 39 U/L 10/26/2024 5:24 PM EDT [facility] ALT 458(H) 7 - 52 U/L 10/26/2024 5:24 PM EDT [facility] Alkaline Phosphatase 39 36 - 125 U/L 10/26/2024 5:24 PM EDT [facility] Total Protein 3.8(L) 6.4 - 8.9 g/dL 10/26/2024 5:24 PM EDT [facility] Albumin 3.0(L) 3.5 - 5.7 g/dL 10/26/2024 5:24 PM EDT [facility] Bilirubin, Indirect 0.45 0.00 - 1.10 mg/dL 10/26/2024 5:24 PM EDT [facility] Plasma 10/26/2024 4:42 PM EDT 10/26/2024 4:47 PM EDT Kemar Sahni MD LAB BLOOD ORDERABLES Final Result Performing Organization Address City/State/[facility] Co de Phone Number [facility] [address] * (ABNORMAL) Protime-INR (10/26/2024 4:42 PM EDT) Protime 20.3(H) 12.1 - 15.1 seconds 10/26/2024 5:12 PM EDT [facility] INR 1.7(H) 0.9 - 1.1 10/26/2024 5:12 PM EDT [facility] Comment: RECOMMENDED THERAPEUTIC RANGES USING INR : Stable oral anticoagulant therapy: 2.0 - 3.0 Mechanical prosthetic heart valve: 2.5 - 3.5 Recurrent acute myocardial infarction: 2.5 - 3.5 Plasma 10/26/2024 4:42 PM EDT 10/26/2024 4:47 PM EDT Kemar Sahni MD LAB BLOOD ORDERABLES Final Result [facility] [address] [place] [address], [facility] * (ABNORMAL) CBC (10/26/2024 4:42 PM EDT) WBC 10.0 3.8 - 10.8 10E3/uL 10/26/2024 5:00 PM EDT [facility] RBC 3.44(L) 4.20 - 5.80 10E6/uL 10/26/2024 5:00 PM EDT [facility] Hemoglobin 10.5(L) 13.2 - 17.1 g/dL 10/26/2024 5:00 PM EDT [facility] Hematocrit 30.2(L) 38.5 - 50.0 % 10/26/2024 5:00 PM EDT [facility] MCV 87.7 80.0 - 100.0 fL 10/26/2024 5:00 PM EDT [facility] MCH 30.6 27.0 - 33.0 pg 10/26/2024 5:00 PM EDT [facility] MCHC 34.8 32.0 - 36.0 g/dL 10/26/2024 5:00 PM EDT [facility] RDW 20.1(H) 11.0 - 15.0 % 10/26/2024 5:00 PM EDT [facility] Platelets 48(L) 140 - 400 10E3/uL 10/26/2024 5:00 PM EDT [facility] Comment:Specimen checked for clots. None detected. MPV 7.9 7.5 - 11.5 fL 10/26/2024 5:00 PM EDT [facility] Whole Blood 10/26/2024 4:42 PM EDT 10/26/2024 4:47 PM EDT Kemar Sahni MD LAB BLOOD ORDERABLES Final Result [facility] [address] [place] [address], [facility] * (ABNORMAL) Renal Function Panel w/EGFR (10/26/2024 4:42 PM EDT) Sodium 142 133 - 146 mmol/L 10/26/2024 5:24 PM EDT [facility] Potassium 3.3(L) 3.5 - 5.3 mmol/L 10/26/2024 5:24 PM EDT [facility] Chloride 109 98 - 110 mmol/L 10/26/2024 5:24 PM EDT [facility] CO2 23 21 - 33 mmol/L 10/26/2024 5:24 PM EDT [facility] Anion Gap 10 3 - 16 mmol/L 10/26/2024 5:24 PM EDT [facility] BUN 63(H) 7 - 25 mg/dL 10/26/2024 5:24 PM EDT [facility] Creatinine 2.85(H) 0.60 - 1.30 mg/dL 10/26/2024 5:24 PM EDT [facility] Glucose 127(H) 70 - 100 mg/dL 10/26/2024 5:24 PM EDT [facility] Calcium 8.9 8.6 - 10.3 mg/dL 10/26/2024 5:24 PM EDT [facility] Phosphorus 4.4 2.1 - 4.7 mg/dL 10/26/2024 5:24 PM EDT [facility] Albumin 3.0(L) 3.5 - 5.7 g/dL 10/26/2024 5:24 PM EDT [facility] Osmolality, Calculated 314(H) 278 - 305 mOsm/kg 10/26/2024 5:24 PM EDT [facility] EGFR 28 10/26/2024 5:24 PM EDT [facility] Comment:As of 2021, the estimated GFR [...] BLOOD ORDERABLES Final Result Performing Organization Address City/[facility]/ZIP Co de Phone Number [facility] [address] [facility]. [address] * (ABNORMAL) POC Glucose Monitoring Device (10/26/2024 3:54 PM EDT) POC Glucose Monitoring Device 126(H) 70 - 100 mg/dL 10/26/2024 3:55 PM EDT [facility] Blood 10/26/2024 3:54 PM EDT 10/26/2024 3:55 PM EDT Semaj Mcnair III, MD POINT OF CARE TEST ORDERABLES Final Result Performing Organization Address [facility] Co de Phone Number [facility] [address] [facility]. [address] * (ABNORMAL) POC Glucose Monitoring Device (10/26/2024 3:06 PM EDT) POC Glucose Monitoring Device 144(H) 70 - 100 mg/dL 10/26/2024 3:14 PM EDT [facility] Blood 10/26/2024 3:06 PM EDT 10/26/2024 3:13 PM EDT Semaj Mcnair III, MD POINT OF CARE TEST ORDERABLES Final Result Performing Organization Address City/[facility]/ZIP Co de Phone Number [facility] [address] [facility]. [address] * (ABNORMAL) TEG-Bypass/ECMO/Liver HN (Factor function, Platelet/Fibrin Clot Strength w/Clot Breakdown, Heparinase In All Channels) (10/26/2024 3:03 PM EDT) [facility] Citrated Kaolin Reaction Time (TEGECMOLIVER) 8.2 4.6 - 9.1 minutes 10/26/2024 4:43 PM EDT [facility] Citrated Kaolin W/Heparinase Reaction Time (TEGECMOLIVER) 8.2 4.3 - 8.3 minutes 10/26/2024 4:43 PM EDT [facility] Citrated Kaolin Maximum Amplitude (TEGECMOLIVER) 41.7(L) 52.0 - 69.0 mm 10/26/2024 4:43 PM EDT [facility] Citrated Functional Fibrinogen W/Heparinase Maximum Amplitude(TEGEC MOLIVER) 11.4(L) 15.0 - 34.0 mm 10/26/2024 4:43 PM EDT [facility] Citrated Rapid Teg W/Heparinase Maximum Amplitude (TEGECMOLIVER) 38.6(L) 53.0 - 69.0 mm 10/26/2024 4:43 PM EDT [facility] Citrated Kaolin w/Heparinase Percent Lysis (TEGECMOLIVER) 0.0 0.0 - 3.2 % 10/26/2024 4:43 PM EDT [facility] Whole Blood (Citrate) 10/26/2024 3:03 PM EDT 10/26/2024 3:10 PM EDT us Jani Mooney MD LAB BLOOD ORDERABLES Final Resul t [facility] [address] * ECG 12 lead (MUSE) (10/26/2024 2:19 PM EDT) 10/26/2024 2:19 PM EDT Narrative MUSE - 10/27/2024 10:09 AM EDT Ventricular Rate: 105 BPM Atrial Rate: 105 BPM P-R Interval: 128 ms QRS Duration: 94 ms QT: 474 ms QTc: 626 ms R [place]: -37 degrees T [place]: 35 degrees Diagnosis Line: Critical Test Result: Long QTc ^ SINUS TACHYCARDIA ^ LEFT AXIS DEVIATION, LEFT ANTERIOR HEMIBLOCK ^ PROLONGED QT ^ ABNORMAL ECG ^ ^ Confirmed by MD HA, NOAHYAR ([id number]) on 10/27/2024 10:09:25 AM Quinten Best MD ECG ORDERABLES Final Result Performing Organization Address [facility] Co de Phone Number MUSE * (ABNORMAL) POC Glucose Monitoring Device (10/26/2024 2:00 PM EDT) POC Glucose Monitoring Device 183(H) 70 - 100 mg/dL 10/26/2024 2:01 PM EDT [facility] Blood 10/26/2024 2:00 PM EDT 10/26/2024 2:01 PM EDT Semaj Mcnair III, MD POINT OF CARE TEST ORDERABLES Final Result Performing Organization Address [facility] de Phone Number [facility] [address] * (ABNORMAL) POC Glucose Monitoring Device (10/26/2024 1:05 PM EDT) POC Glucose Monitoring Device 212(H) 70 - 100 mg/dL 10/26/2024 1:06 PM EDT [facility] Blood 10/26/2024 1:05 PM EDT 10/26/2024 1:06 PM EDT Semaj Mcnair III, MD POINT OF CARE TEST ORDERABLES Final Result Performing Organization Address [facility] Co de Phone Number [facility] [address] * Transfuse Cryoprecipitate Has consent been obtained? Yes; Transfusion Rate: Per dept routine (10/26/2024 12:25 PM EDT) Result [facility] Shay Sifuentes MD NURSING TREATMENT ORDERABLES - BLOOD ADMIN Final Result Performing Organization Address [facility] de Phone Number EXTERNAL * Transfuse Cryoprecipitate Has consent been obtained? Yes; Transfusion Rate: Per dept routine, 1 Units (10/26/2024 12:25 PM EDT) Shay Sifuentes MD NURSING TREATMENT ORDERABLES - BLOOD ADMIN Final Result Performing Organization Address [facility] de Phone Number EXTERNAL * (ABNORMAL) POC Glucose Monitoring Device (10/26/2024 12:06 PM EDT) POC Glucose Monitoring Device 226(H) 70 - 100 mg/dL 10/26/2024 12:07 PM EDT [facility] Blood 10/26/2024 12:0 6 PM EDT 10/26/2024 12:07 PM EDT Semaj Mcnair III, MD POINT OF CARE TEST ORDERABLES Final Result Performing Organization Address [facility] de Phone Number [facility] [address] * Transfuse Cryoprecipitate Transfusion Rate: Per dept routine (10/26/2024 12:01 PM EDT) Result [facility] John Pina MD NURSING TREATMENT ORDERABLES - BLOOD ADMIN Final Result Performing Organization Address [facility] de Phone Number EXTERNAL * Transfuse Cryoprecipitate Transfusion Rate: Per dept routine, 1 Units (10/26/2024 12:01 PM EDT) John Pina MD NURSING TREATMENT ORDERABLES - BLOOD ADMIN Final Result Performing Organization Address [facility] de Phone Number EXTERNAL * Lactic Acid (10/26/2024 10:48 AM EDT) Lactate 1.2 0.5 - 2.2 mmol/L 10/26/2024 11:27 AM EDT [facility] Plasma 10/26/2024 10:4 8 AM EDT 10/26/2024 10:53 AM EDT Kemar Sahni MD LAB BLOOD ORDERABLES Final Result [facility] [address] [facility]. [address] * Magnesium (10/26/2024 10:48 AM EDT) Magnesium 2.0 1.5 - 2.5 mg/dL 10/26/2024 11:26 AM EDT [facility] Plasma 10/26/2024 10:4 8 AM EDT 10/26/2024 10:53 AM EDT Kemar Sahni MD LAB BLOOD ORDERABLES Final Result Performing Organization Address City/[facility] Co de Phone Number [facility] [address] [facility]. [address] * (ABNORMAL) Hepatic Function Panel (10/26/2024 10:48 AM EDT) Total Bilirubin 5.9(H) 0.0 - 1.5 mg/dL 10/26/2024 11:26 AM EDT [facility] Bilirubin, Direct 4.74(H) 0.00 - 0.40 mg/dL 10/26/2024 11:26 AM EDT [facility] AST 872(H) 13 - 39 U/L 10/26/2024 11:26 AM EDT [facility] ALT 736(H) 7 - 52 U/L 10/26/2024 11:26 AM EDT [facility] Alkaline Phosphatase 56 36 - 125 U/L 10/26/2024 11:26 AM EDT [facility] Total Protein 3.5(L) 6.4 - 8.9 g/dL 10/26/2024 11:26 AM EDT [facility] Albumin 2.5(L) 3.5 - 5.7 g/dL 10/26/2024 11:26 AM EDT [facility] Bilirubin, Indirect 1.16(H) 0.00 - 1.10 mg/dL 10/26/2024 11:26 AM EDT [facility] Plasma 10/26/2024 10:4 8 AM EDT 10/26/2024 10:53 AM EDT Kemar Sahni MD LAB BLOOD ORDERABLES Final Result Performing Organization Address [facility] de Phone Number [facility] [address] [facility]. [address] * (ABNORMAL) Protime-INR (10/26/2024 10:48 AM EDT) Protime 23.0(H) 12.1 - 15.1 seconds 10/26/2024 11:26 AM EDT [facility] INR 2.0(H) 0.9 - 1.1 10/26/2024 11:26 AM EDT [facility] Comment: RECOMMENDED THERAPEUTIC RANGES USING INR : Stable oral anticoagulant therapy: 2.0 - 3.0 Mechanical prosthetic heart valve: 2.5 - 3.5 Recurrent acute myocardial infarction: 2.5 - 3.5 Plasma 10/26/2024 10:4 8 AM EDT 10/26/2024 10:53 AM EDT Kemar Sahni MD LAB BLOOD ORDERABLES Final Result Performing Organization Address [facility] de Phone Number [facility] [address] [facility]. [address] * (ABNORMAL) CBC (10/26/2024 10:48 AM EDT) WBC 17.3(H) 3.8 - 10.8 10E3/uL 10/26/2024 11:14 AM EDT [facility] RBC 4.22 4.20 - 5.80 10E6/uL 10/26/2024 11:14 AM EDT [facility] Hemoglobin 12.8(L) 13.2 - 17.1 g/dL 10/26/2024 11:14 AM EDT [facility] Hematocrit 37.2(L) 38.5 - 50.0 % 10/26/2024 11:14 AM EDT [facility] MCV 88.3 80.0 - 100.0 fL 10/26/2024 11:14 AM EDT [facility] MCH 30.4 27.0 - 33.0 pg 10/26/2024 11:14 AM EDT [facility] MCHC 34.4 32.0 - 36.0 g/dL 10/26/2024 11:14 AM EDT [facility] RDW 20.8(H) 11.0 - 15.0 % 10/26/2024 11:14 AM EDT [facility] Platelets 109(L) 140 - 400 10E3/uL 10/26/2024 11:14 AM EDT [facility] MPV 7.5 7.5 - 11.5 fL 10/26/2024 11:14 AM EDT [facility] Whole Blood 10/26/2024 10:4 8 AM EDT 10/26/2024 10:53 AM EDT us Kemar Sahni MD LAB BLOOD ORDERABLES Final Result Performing Organization Address City/State/[facility] Co de Phone Number [facility] [address] * (ABNORMAL) Blood gas, arterial (10/26/2024 10:48 AM EDT) O2 Sat, Arterial 97 10/26/2024 10:54 AM EDT [facility] FIO2 35% 10/26/2024 10:54 AM EDT [facility] pH, Arterial 7.37 7.35 - 7.45 10/26/2024 10:54 AM EDT [facility] pCO2, Arterial 36 35 - 45 mm Hg 10/26/2024 10:54 AM EDT [facility] pO2, Arterial 91 80 - 100 mm Hg 10/26/2024 10:54 AM EDT [facility] HCO3, Arterial 22 22 - 26 mmol/L 10/26/2024 10:54 AM EDT [facility] CO2 Content,Arteri al 22(L) 23 - 27 mmol/L 10/26/2024 10:54 AM EDT [facility] Base Excess, Arterial -3.9(L) -2.0 - 3.0 mmol/L 10/26/2024 10:54 AM EDT [facility] %HBO2, Arterial 94.8(L) 95.0 - 98.0 % 10/26/2024 10:54 AM EDT [facility] Carboxyhemoglo bin, Arterial 1.9 % 10/26/2024 10:54 AM EDT [facility] Comment: CARBOXYHEMOGLOBIN (CO) REFERENCE RANGES: Non-Smokers: <2 % Smokers: <8 % TOXIC: >20 % Methemoglobin, Arterial 0.7 0.0 - 1.5 % 10/26/2024 10:54 AM EDT [facility] Reduced hemoglobin, Arterial 2.5 0.0 - 5.0 % 10/26/2024 10:54 AM EDT [facility] Blood, Arterial 10/26/2024 1 0:48 AM EDT 10/26/2024 10:52 AM EDT us Shay Sifuentes MD LAB BLOOD ORDERABLES Final Resu lt [facility] [address] * (ABNORMAL) Renal Function Panel w/EGFR (10/26/2024 10:48 AM EDT) Sodium 139 133 - 146 mmol/L 10/26/2024 11:26 AM EDT [facility] Potassium 2.9(LL) 3.5 - 5.3 mmol/L 10/26/2024 11:26 AM EDT [facility] Comment:K CRITICAL VALUE WAS PREVIOUSLY CALLED Chloride 107 98 - 110 mmol/L 10/26/2024 11:26 AM EDT [facility] CO2 22 21 - 33 mmol/L 10/26/2024 11:26 AM EDT [facility] Anion Gap 10 3 - 16 mmol/L 10/26/2024 11:26 AM EDT [facility] BUN 61(H) 7 - 25 mg/dL 10/26/2024 11:26 AM EDT [facility] Creatinine 2.78(H) 0.60 - 1.30 mg/dL 10/26/2024 11:26 AM EDT [facility] Glucose 253(H) 70 - 100 mg/dL 10/26/2024 11:26 AM EDT [facility] Calcium 8.8 8.6 - 10.3 mg/dL 10/26/2024 11:26 AM EDT [facility] Phosphorus 4.1 2.1 - 4.7 mg/dL 10/26/2024 11:26 AM EDT [facility] Albumin 2.5(L) 3.5 - 5.7 g/dL 10/26/2024 11:26 AM EDT [facility] Osmolality, Calculated 314(H) 278 - 305 mOsm/kg 10/26/2024 11:26 AM EDT [facility] EGFR 28 10/26/2024 11:26 AM EDT [facility] Comment:As of 2021, the estimated GFR [...] Final Result [facility] [address] [id number], [facility] * (ABNORMAL) POC Glucose Monitoring Device (10/26/2024 10:47 AM EDT) POC Glucose Monitoring Device 234(H) 70 - 100 mg/dL 10/26/2024 10:48 AM EDT [facility] Blood 10/26/2024 10:4 7 AM EDT 10/26/2024 10:48 AM EDT us Semaj Mcnair III, MD POINT OF CARE TEST ORDERABLES Final Result Performing Organization Address [facility] Co de Phone Number [facility] [address] [place] [address] * CARISA Rhythm Strip - Scan (10/26/2024 10:45 AM EDT) us Scanning Uchhim SCAN DOCS - NO RESULTS Final Res ult * (ABNORMAL) POC Glucose Monitoring Device (10/26/2024 10:08 AM EDT) POC Glucose Monitoring Device 235(H) 70 - 100 mg/dL 10/26/2024 10:09 AM EDT [facility] Blood 10/26/2024 10:0 8 AM EDT 10/26/2024 10:09 AM EDT Semaj Mcnair III, MD POINT OF CARE TEST ORDERABLES Final Result Performing Organization Address [facility] Co de Phone Number [facility] [address] [facility]. [address] * (ABNORMAL) POC Glucose Monitoring Device (10/26/2024 8:57 AM EDT) POC Glucose Monitoring Device 232(H) 70 - 100 mg/dL 10/26/2024 8:59 AM EDT [facility] Blood 10/26/2024 8:57 AM EDT 10/26/2024 8:58 AM EDT us Semaj Mcnair III, MD POINT OF CARE TEST ORDERABLES Final Result Performing Organization Address City/[facility] Co de Phone Number [facility] [address] * ECG 12 lead (MUSE) (10/26/2024 8:16 AM EDT) 10/26/2024 8:16 AM EDT Narrative MUSE - 10/27/2024 10:09 AM EDT Ventricular Rate: 112 BPM QRS Duration: 96 ms QT: 452 ms QTc: 616 ms R [place]: -41 degrees T [place]: 40 degrees Diagnosis Line: Critical Test Result: Long QTc ^ SINUS TACHYCARDIA OCCASIONAL PREMATURE VENTRICULAR COMPLEXES ^ LEFT AXIS DEVIATION, LEFT ANTERIOR HEMIBLOCK ^ PROLONGED QT ^ ABNORMAL ECG ^ ^ Confirmed by MD HA, [facility] ([id number]) on 10/27/2024 10:09:18 AM us [...] Glucose Monitoring Device (10/26/2024 7:59 AM EDT) [facility] POC Glucose Monitoring Device 229(H) 70 - 100 mg/dL 10/26/2024 8:01 AM EDT [facility] Blood 10/26/2024 7:59 AM EDT 10/26/2024 8:00 AM EDT Semaj Mcnair III, MD POINT OF CARE TEST ORDERABLES Final Result [facility] [address] * (ABNORMAL) TEG-Bypass/ECMO/Liver HN (Factor function, Platelet/Fibrin Clot Strength w/Clot Breakdown, Heparinase In All Channels) (10/26/2024 7:59 AM EDT) Citrated Kaolin Reaction Time (TEGECMOLIVER) 8.2 4.6 - 9.1 minutes 10/26/2024 10:36 AM EDT [facility] Citrated Kaolin W/Heparinase Reaction Time (TEGECMOLIVER) 8.1 4.3 - 8.3 minutes 10/26/2024 10:36 AM EDT [facility] Citrated Kaolin Maximum Amplitude (TEGECMOLIVER) 46.8(L) 52.0 - 69.0 mm 10/26/2024 10:36 AM EDT [facility] Citrated Functional Fibrinogen W/Heparinase Maximum Amplitude(TEGEC MOLIVER) 10.5(L) 15.0 - 34.0 mm 10/26/2024 10:36 AM EDT [facility] Citrated Rapid Teg W/Heparinase Maximum Amplitude (TEGECMOLIVER) 45.5(L) 53.0 - 69.0 mm 10/26/2024 10:36 AM EDT [facility] Citrated Kaolin w/Heparinase Percent Lysis (TEGECMOLIVER) 0.0 0.0 - 3.2 % 10/26/2024 10:36 AM EDT [facility] Whole Blood (Citrate) 10/26/2024 7:59 AM EDT 10/26/2024 8:05 AM EDT Shay Sifuentes MD LAB BLOOD ORDERABLES Final Resu lt Performing Organization Address [facility]/ZIP Co de Phone Number [facility] [address] [facility]. [address] * (ABNORMAL) POC Glucose Monitoring Device (10/26/2024 6:12 AM EDT) POC Glucose Monitoring Device 196(H) 70 - 100 mg/dL 10/26/2024 6:13 AM EDT [facility] Blood 10/26/2024 6:12 AM EDT 10/26/2024 6:13 AM EDT Semaj Mcnair III, MD POINT OF CARE TEST ORDERABLES Final Result Performing Organization Address [facility] Co de Phone Number [facility] [address] [facility]. [address] * Lactic Acid (10/26/2024 6:10 AM EDT) Lactate 1.2 0.5 - 2.2 mmol/L 10/26/2024 6:39 AM EDT [facility] Plasma 10/26/2024 6:10 AM EDT 10/26/2024 6:19 AM EDT Sveta Judge MD LAB BLOOD ORDERABLES Final Resu lt Performing Organization Address [facility]/ZIP Co de Phone Number [facility] [address] [facility]. [address] * (ABNORMAL) Fibrinogen (10/26/2024 6:10 AM EDT) Fibrinogen 160(L) 218 - 406 mg/dL 10/26/2024 6:41 AM EDT [facility] Plasma 10/26/2024 6:10 AM EDT 10/26/2024 6:26 AM EDT Sveta Judge MD LAB BLOOD ORDERABLES Final Resu lt Performing Organization Address [facility] Co de Phone Number [facility] [address] * (ABNORMAL) Protime-INR (10/26/2024 6:10 AM EDT) Protime 25.0(H) 12.1 - 15.1 seconds 10/26/2024 6:41 AM EDT [facility] INR 2.2(H) 0.9 - 1.1 10/26/2024 6:41 AM EDT [facility] Comment: RECOMMENDED THERAPEUTIC RANGES USING INR : Stable oral anticoagulant therapy: 2.0 - 3.0 Mechanical prosthetic heart valve: 2.5 - 3.5 Recurrent acute myocardial infarction: 2.5 - 3.5 Plasma 10/26/2024 6:10 AM EDT 10/26/2024 6:26 AM EDT Sveta Judge MD LAB BLOOD ORDERABLES Final Resu lt [facility] [address] * (ABNORMAL) Blood gas, arterial (10/26/2024 6:10 AM EDT) O2 Sat, Arterial 98 10/26/2024 6:23 AM EDT [facility] FIO2 60 10/26/2024 6:23 AM EDT [facility] pH, Arterial 7.27(L) 7.35 - 7.45 10/26/2024 6:23 AM EDT [facility] pCO2, Arterial 47(H) 35 - 45 mm Hg 10/26/2024 6:23 AM EDT [facility] pO2, Arterial 127(H) 80 - 100 mm Hg 10/26/2024 6:23 AM EDT [facility] HCO3, Arterial 21(L) 22 - 26 mmol/L 10/26/2024 6:23 AM EDT [facility] CO2 Content,Arteri al 23 23 - 27 mmol/L 10/26/2024 6:23 AM EDT [facility] Base Excess, Arterial -5.4(L) -2.0 - 3.0 mmol/L 10/26/2024 6:23 AM EDT [facility] %HBO2, Arterial 94.6(L) 95.0 - 98.0 % 10/26/2024 6:23 AM EDT [facility] Carboxyhemoglo bin, Arterial 2.0 % 10/26/2024 6:23 AM EDT [facility] Comment: CARBOXYHEMOGLOBIN (CO) REFERENCE RANGES: Non-Smokers: <2 % Smokers: <8 % TOXIC: >20 % Methemoglobin, Arterial 1.6(H) 0.0 - 1.5 % 10/26/2024 6:23 AM EDT [facility] Reduced hemoglobin, Arterial 1.8 0.0 - 5.0 % 10/26/2024 6:23 AM EDT [facility] Blood, Arterial 10/26/2024 6 :10 AM EDT 10/26/2024 6:20 AM EDT Sveta Judge MD LAB BLOOD ORDERABLES Final Resu lt [facility] [address] * Magnesium (10/26/2024 6:10 AM EDT) Magnesium 1.5 1.5 - 2.5 mg/dL 10/26/2024 7:09 AM EDT [facility] Plasma 10/26/2024 6:10 AM EDT 10/26/2024 6:23 AM EDT Sveta Judge MD LAB BLOOD ORDERABLES Final Resu lt [facility] [address] [place] [address], [facility] * (ABNORMAL) Hepatic Function Panel (10/26/2024 6:10 AM EDT) Total Bilirubin 6.2(H) 0.0 - 1.5 mg/dL 10/26/2024 7:11 AM EDT [facility] Bilirubin, Direct 5.26(H) 0.00 - 0.40 mg/dL 10/26/2024 7:11 AM EDT [facility] AST 1,071(H) 13 - 39 U/L 10/26/2024 7:11 AM EDT [facility] ALT 805(H) 7 - 52 U/L 10/26/2024 7:11 AM EDT [facility] Alkaline Phosphatase 55 36 - 125 U/L 10/26/2024 7:11 AM EDT [facility] Total Protein <3.0(L) 6.4 - 8.9 g/dL 10/26/2024 7:11 AM EDT [facility] Albumin 1.9(L) 3.5 - 5.7 g/dL 10/26/2024 7:11 AM EDT [facility] Bilirubin, Indirect 0.94 0.00 - 1.10 mg/dL 10/26/2024 7:11 AM EDT [facility] Plasma 10/26/2024 6:10 AM EDT 10/26/2024 6:23 AM EDT Sveta Judge MD LAB BLOOD ORDERABLES Final Resu lt [facility] [address] [place] [address], [facility] * (ABNORMAL) Renal Function Panel w/EGFR (10/26/2024 6:10 AM EDT) Sodium 141 133 - 146 mmol/L 10/26/2024 7:09 AM EDT [facility] Potassium 2.8(LL) 3.5 - 5.3 mmol/L 10/26/2024 7:09 AM EDT [facility] Comment:Critical value previ ously called. Chloride 106 98 - 110 mmol/L 10/26/2024 7:09 AM EDT [facility] CO2 25 21 - 33 mmol/L 10/26/2024 7:09 AM EDT [facility] Anion Gap 10 3 - 16 mmol/L 10/26/2024 7:09 AM EDT [facility] BUN 57(H) 7 - 25 mg/dL 10/26/2024 7:09 AM EDT [facility] Creatinine 2.70(H) 0.60 - 1.30 mg/dL 10/26/2024 7:09 AM EDT [facility] Glucose 210(H) 70 - 100 mg/dL 10/26/2024 7:09 AM EDT [facility] Calcium 8.7 8.6 - 10.3 mg/dL 10/26/2024 7:09 AM EDT [facility] Phosphorus 5.4(H) 2.1 - 4.7 mg/dL 10/26/2024 7:09 AM EDT [facility] Albumin 1.9(L) 3.5 - 5.7 g/dL 10/26/2024 7:11 AM EDT [facility] Osmolality, Calculated 314(H) 278 - 305 mOsm/kg 10/26/2024 7:09 AM EDT [facility] EGFR 29 10/26/2024 7:09 AM EDT [facility] Comment:As of 2021, the estimated GFR [...] MD LAB BLOOD ORDERABLES Final Resu lt [facility] [address] [id number], [facility] * (ABNORMAL) CBC (10/26/2024 6:10 AM EDT) WBC 14.8(H) 3.8 - 10.8 10E3/uL 10/26/2024 6:46 AM EDT [facility] RBC 4.04(L) 4.20 - 5.80 10E6/uL 10/26/2024 6:46 AM EDT [facility] Hemoglobin 12.7(L) 13.2 - 17.1 g/dL 10/26/2024 6:46 AM EDT [facility] Hematocrit 35.9(L) 38.5 - 50.0 % 10/26/2024 6:46 AM EDT [facility] MCV 89.0 80.0 - 100.0 fL 10/26/2024 6:46 AM EDT [facility] MCH 31.3 27.0 - 33.0 pg 10/26/2024 6:46 AM EDT [facility] MCHC 35.2 32.0 - 36.0 g/dL 10/26/2024 6:46 AM EDT [facility] RDW 19.7(H) 11.0 - 15.0 % 10/26/2024 6:46 AM EDT [facility] Platelets 107(L) 140 - 400 10E3/uL 10/26/2024 6:46 AM EDT [facility] MPV 7.4(L) 7.5 - 11.5 fL 10/26/2024 6:46 AM EDT [facility] Whole Blood 10/26/2024 6:10 AM EDT 10/26/2024 6:26 AM EDT us Sveta Judge MD LAB BLOOD ORDERABLES Final Resu lt [facility] [address] * (ABNORMAL) POC INR (10/26/2024 5:16 AM EDT) Pathologist [facility] Prothrombin Time INR, POC 2.4(H) 0.8 - 1.4 10/27/2024 6:51 AM EDT [facility] Comment: Test results may vary using [...] Result Performing Organization Address [facility] Co de Phone Number [facility] [address] [facility]. [address] * POC Sample Type (10/26/2024 5:14 AM EDT) [facility] POC Sample Type Arterial 10/26/2024 5:31 AM EDT [facility] Blood, Arterial 10/26/2024 5 :14 AM EDT 10/26/2024 5:31 AM EDT us Semaj Mcnair III, MD POINT OF CARE TEST ORDERABLES Final Result Performing Organization Address [facility]/ZIP Co de Phone Number [facility] [address] [facility]. [address] * POC Anion Gap (10/26/2024 5:14 AM EDT) [facility] POC Anion Gap, Arterial 12 3 - 16 mmol/L 10/26/2024 5:31 AM EDT [facility] Blood, Arterial 10/26/2024 5 :14 AM EDT 10/26/2024 5:31 AM EDT Semaj Mcnair III, MD POINT OF CARE TEST ORDERABLES Final Result Performing Organization Address City/[facility] Co de Phone Number [facility] [address] [facility]. [address] * POC Chloride (10/26/2024 5:14 AM EDT) POC Chloride 104 98 - 110 mmol/L 10/26/2024 5:31 AM EDT [facility] Blood, Arterial 10/26/2024 5 :14 AM EDT 10/26/2024 5:31 AM EDT Semaj Mcnair III, MD POINT OF CARE TEST ORDERABLES Final Result Performing Organization Address [facility] Co de Phone Number [facility] [address] [facility]. [address] * (ABNORMAL) POC Hemoglobin (10/26/2024 5:14 AM EDT) POC Hemoglobin 9.5(L) 14.0 - 18.0 g/dL 10/26/2024 5:31 AM EDT [facility] Blood, Arterial 10/26/2024 5 :14 AM EDT 10/26/2024 5:31 AM EDT Semaj Mcnair III, MD POINT OF CARE TEST ORDERABLES Final Result Performing Organization Address City/[facility] Co de Phone Number [facility] [address] [facility]. [address] * (ABNORMAL) POC hematocrit (10/26/2024 5:14 AM EDT) POC Hematocrit 28.0(L) 40 - 52 % 10/26/2024 5:31 AM EDT [facility] Blood, Arterial 10/26/2024 5 :14 AM EDT 10/26/2024 5:31 AM EDT us Semaj Austin Quillin III, MD POINT OF CARE TEST ORDERABLES Final Result Performing Organization Address City/[facility]/ZIP Co de Phone Number [facility] [address] [address] * POC Lactate (10/26/2024 5:14 AM EDT) POC Lactate 1.76 0.50 - 2.20 mmol/L 10/26/2024 5:31 AM EDT [facility] Blood, Arterial 10/26/2024 5 :14 AM EDT 10/26/2024 5:31 AM EDT us Semaj Mcnair III, MD POINT OF CARE TEST ORDERABLES Final Result Performing Organization Address [facility] Co de Phone Number [facility] [address] [place] [address]. [address] * (ABNORMAL) POC Glucose (10/26/2024 5:14 AM EDT) POC Glucose, Arterial 183(H) 70 - 100 mg/dL 10/26/2024 5:31 AM EDT [facility] Blood, Arterial 10/26/2024 5 :14 AM EDT 10/26/2024 5:31 AM EDT us Semaj Mcnair III, MD POINT OF CARE TEST ORDERABLES Final Result [facility] [address]. [address] * (ABNORMAL) POC Ionized Calcium (10/26/2024 5:14 AM EDT) POC Ionized Calcium 5.50(H) 4.50 - 5.30 mg/dL 10/26/2024 5:31 AM EDT [facility] Blood, Arterial 10/26/2024 5 :14 AM EDT 10/26/2024 5:31 AM EDT us Semaj Mcnair III, MD POINT OF CARE TEST ORDERABLES Final Result [facility] [address] * (ABNORMAL) POC Potassium (10/26/2024 5:14 AM EDT) POC Potassium 2.8(LL) 3.5 - 5.3 mmol/L 10/26/2024 5:31 AM EDT [facility] Blood, Arterial 10/26/2024 5 :14 AM EDT 10/26/2024 5:31 AM EDT Semaj Mcnair III, MD POINT OF CARE TEST ORDERABLES Final Result Performing Organization Address [facility] Co de Phone Number [facility] [address]. [address] * POC Sodium (10/26/2024 5:14 AM EDT) POC Sodium 138 136 - 146 mmol/L 10/26/2024 5:31 AM EDT [facility] Blood, Arterial 10/26/2024 5 :14 AM EDT 10/26/2024 5:31 AM EDT us Semaj Mcnair III, MD POINT OF CARE TEST ORDERABLES Final Result Performing Organization Address City/[facility]/ZIP Co de Phone Number [facility] [address] [facility]. [address] * POC TCO2 (10/26/2024 5:14 AM EDT) POC TCO2, Arterial 23 23 - 27 mmol/L 10/26/2024 5:31 AM EDT [facility] Blood, Arterial 10/26/2024 5 :14 AM EDT 10/26/2024 5:31 AM EDT us Semaj Mcnair III, MD POINT OF CARE TEST ORDERABLES Final Result Performing Organization Address City/[facility]/ZIP Co de Phone Number [facility] [address] * (ABNORMAL) POC O2 SAT (10/26/2024 5:14 AM EDT) POC O2 Saturation, Arterial 99(H) 95 - 98 % 10/26/2024 5:31 AM EDT [facility] Blood, Arterial 10/26/2024 5 :14 AM EDT 10/26/2024 5:31 AM EDT us Semaj Mcnair III, MD POINT OF CARE TEST ORDERABLES Final Result Performing Organization Address [facility] Co de Phone Number [facility] [address] [facility]. [address] * (ABNORMAL) POC Base Excess (10/26/2024 5:14 AM EDT) POC Base Excess, Arterial -5(L) -2 - 3 mmol/L 10/26/2024 5:31 AM EDT [facility] Blood, Arterial 10/26/2024 5 :14 AM EDT 10/26/2024 5:31 AM EDT us Semaj Mcnair III, MD POINT OF CARE TEST ORDERABLES Final Result Performing Organization Address City/[facility] Co de Phone Number [facility] [address] [facility]. [address] * POC HCO3 (10/26/2024 5:14 AM EDT) POC HCO3, Arterial 22 22 - 26 mmol/L 10/26/2024 5:31 AM EDT [facility] Blood, Arterial 10/26/2024 5 :14 AM EDT 10/26/2024 5:31 AM EDT us Semaj Mcnair III, MD POINT OF CARE TEST ORDERABLES Final Result [facility] [address] * (ABNORMAL) POC PO2 (10/26/2024 5:14 AM EDT) POC pO2, Arterial 133(H) 80 - 100 mm Hg 10/26/2024 5:31 AM EDT [facility] Blood, Arterial 10/26/2024 5 :14 AM EDT 10/26/2024 5:31 AM EDT us Semaj Mcnair III, MD POINT OF CARE TEST ORDERABLES Final Result Performing Organization Address City/[facility]/ZIP Co de Phone Number [facility] [address] * POC PCO2 (10/26/2024 5:14 AM EDT) POC pCO2, Arterial 45 35 - 45 mm Hg 10/26/2024 5:31 AM EDT [facility] Blood, Arterial 10/26/2024 5 :14 AM EDT 10/26/2024 5:31 AM EDT us Semaj Mcnair III, MD POINT OF CARE TEST ORDERABLES Final Result Performing Organization Address City/[facility]/ZIP Co de Phone Number [facility] [address] * (ABNORMAL) POC pH (10/26/2024 5:14 AM EDT) POC pH, Arterial 7.29(L) 7.35 - 7.45 10/26/2024 5:31 AM EDT [facility] Blood, Arterial 10/26/2024 5 :14 AM EDT 10/26/2024 5:31 AM EDT us Semaj Mcnair III, MD POINT OF CARE TEST ORDERABLES Final Result [facility] [address] * Transfuse Cryoprecipitate (10/26/2024 4:37 AM [...] AM EDT 10/27/2024 6:51 AM EDT Result [facility] Semaj Mcnair III, MD POINT OF CARE TEST ORDERABLES Final Result [facility] [address] [facility]. [address] * POC Sample Type (10/26/2024 4:24 AM EDT) POC Sample Type Arterial 10/26/2024 5:09 AM EDT [facility] Blood, Arterial 10/26/2024 4 :24 AM EDT 10/26/2024 5:09 AM EDT Result [facility] Semaj Mcnair III, MD POINT OF CARE TEST ORDERABLES Final Result [facility] [address] * POC Anion Gap (10/26/2024 4:24 AM EDT) POC Anion Gap, Arterial 14 3 - 16 mmol/L 10/26/2024 5:09 AM EDT [facility] Blood, Arterial 10/26/2024 4 :24 AM EDT 10/26/2024 5:09 AM EDT us Semaj Mcnair III, MD POINT OF CARE TEST ORDERABLES Final Result [facility] [address] [facility]. [address] * POC Chloride (10/26/2024 4:24 AM EDT) [facility] POC Chloride 103 98 - 110 mmol/L 10/26/2024 5:09 AM EDT [facility] Blood, Arterial 10/26/2024 4 :24 AM EDT 10/26/2024 5:09 AM EDT us Semaj Mcnair III, MD POINT OF CARE TEST ORDERABLES Final Result Performing Organization Address City/[facility] Co de Phone Number [facility] [address] [facility]. [address] * (ABNORMAL) POC Hemoglobin (10/26/2024 4:24 AM EDT) [facility] POC Hemoglobin 10.3(L) 14.0 - 18.0 g/dL 10/26/2024 5:09 AM EDT [facility] Blood, Arterial 10/26/2024 4 :24 AM EDT 10/26/2024 5:09 AM EDT us Semaj Mcnair III, MD POINT OF CARE TEST ORDERABLES Final Result Performing Organization Address City/[facility]/ZIP Co de Phone Number [facility] [address] [facility]. [address] * (ABNORMAL) POC hematocrit (10/26/2024 4:24 AM EDT) POC Hematocrit 30.0(L) 40 - 52 % 10/26/2024 5:09 AM EDT [facility] Blood, Arterial 10/26/2024 4 :24 AM EDT 10/26/2024 5:09 AM EDT us Semaj Mcnair III, MD POINT OF CARE TEST ORDERABLES Final Result [facility] [address] [place] [address]. [address] * (ABNORMAL) POC Lactate (10/26/2024 4:24 AM EDT) Pathologist [facility] POC Lactate 2.43(H) 0.50 - 2.20 mmol/L 10/26/2024 5:09 AM EDT [facility] Blood, Arterial 10/26/2024 4 :24 AM EDT 10/26/2024 5:09 AM EDT us Semaj Mcnair III, MD POINT OF CARE TEST ORDERABLES Final Result Performing Organization Address City/[facility] Co de Phone Number [facility] [address] [place] [address]. [address] * (ABNORMAL) POC Glucose (10/26/2024 4:24 AM EDT) Pathologist [facility] POC Glucose, Arterial 185(H) 70 - 100 mg/dL 10/26/2024 5:09 AM EDT [facility] Blood, Arterial 10/26/2024 4 :24 AM EDT 10/26/2024 5:09 AM EDT us Semaj Mcnair III, MD POINT OF CARE TEST ORDERABLES Final Result Performing Organization Address City/[facility] Co de Phone Number [facility] [address] [facility]. [address] * POC Ionized Calcium (10/26/2024 4:24 AM EDT) POC Ionized Calcium 5.20 4.50 - 5.30 mg/dL 10/26/2024 5:09 AM EDT [facility] Blood, Arterial 10/26/2024 4 :24 AM EDT 10/26/2024 5:09 AM EDT us Semaj Mcnair III, MD POINT OF CARE TEST ORDERABLES Final Result Performing Organization Address City/[facility]/ZIP Co de Phone Number [facility] [address] [place] [address]. [address] * (ABNORMAL) POC Potassium (10/26/2024 4:24 AM EDT) [facility] POC Potassium 2.8(LL) 3.5 - 5.3 mmol/L 10/26/2024 5:09 AM EDT [facility] Blood, Arterial 10/26/2024 4 :24 AM EDT 10/26/2024 5:09 AM EDT us Semaj Mcnair III, MD POINT OF CARE TEST ORDERABLES Final Result Performing Organization Address City/[facility] Co de Phone Number [address] * POC Sodium (10/26/2024 4:24 AM EDT) [facility] POC Sodium 139 136 - 146 mmol/L 10/26/2024 5:09 AM EDT [facility] Blood, Arterial 10/26/2024 4 :24 AM EDT 10/26/2024 5:09 AM EDT us Semaj Mcnair III, MD POINT OF CARE TEST ORDERABLES Final Result Performing Organization Address City/[facility] Co de Phone Number [address] * POC TCO2 (10/26/2024 4:24 AM EDT) Pathologist [facility] POC TCO2, Arterial 23 23 - 27 mmol/L 10/26/2024 5:09 AM EDT [facility] Blood, Arterial 10/26/2024 4 :24 AM EDT 10/26/2024 5:09 AM EDT us Semaj Mcnair III, MD POINT OF CARE TEST ORDERABLES Final Result [facility] [address] * POC O2 SAT (10/26/2024 4:24 AM EDT) POC O2 Saturation, Arterial 96 95 - 98 % 10/26/2024 5:09 AM EDT [facility] Blood, Arterial 10/26/2024 4 :24 AM EDT 10/26/2024 5:09 AM EDT Semaj Mcnair III, MD POINT OF CARE TEST ORDERABLES Final Result Performing Organization Address City/[facility]/ZIP Co de Phone Number [facility] [address] * (ABNORMAL) POC Base Excess (10/26/2024 4:24 AM EDT) POC Base Excess, Arterial -5(L) -2 - 3 mmol/L 10/26/2024 5:09 AM EDT [facility] Blood, Arterial 10/26/2024 4 :24 AM EDT 10/26/2024 5:09 AM EDT Semaj Mcnair III, MD POINT OF CARE TEST ORDERABLES Final Result [facility] [address] * POC HCO3 (10/26/2024 4:24 AM EDT) POC HCO3, Arterial 22 22 - 26 mmol/L 10/26/2024 5:09 AM EDT [facility] Blood, Arterial 10/26/2024 4 :24 AM EDT 10/26/2024 5:09 AM EDT us Semaj Mcnair III, MD POINT OF CARE TEST ORDERABLES Final Result Performing Organization Address City/[facility]/ZIP Co de Phone Number [facility] [address] * POC PO2 (10/26/2024 4:24 AM EDT) POC pO2, Arterial 93 80 - 100 mm Hg 10/26/2024 5:09 AM EDT [facility] Blood, Arterial 10/26/2024 4 :24 AM EDT 10/26/2024 5:09 AM EDT us Semaj Mcnair III, MD POINT OF CARE TEST ORDERABLES Final Result Performing Organization Address [facility] Co de Phone Number [facility] [address] [facility]. [address] * POC PCO2 (10/26/2024 4:24 AM EDT) POC pCO2, Arterial 44 35 - 45 mm Hg 10/26/2024 5:09 AM EDT [facility] Blood, Arterial 10/26/2024 4 :24 AM EDT 10/26/2024 5:09 AM EDT us Semaj Mcnair III, MD POINT OF CARE TEST ORDERABLES Final Result Performing Organization Address City/[facility] Co de Phone Number [facility] [address] [facility]. [address] * (ABNORMAL) POC pH (10/26/2024 4:24 AM EDT) POC pH, Arterial 7.30(L) 7.35 - 7.45 10/26/2024 5:09 AM EDT [facility] Blood, Arterial 10/26/2024 4 :24 AM EDT 10/26/2024 5:09 AM EDT us Semaj Mcnair III, MD POINT OF CARE TEST ORDERABLES Final Result Performing Organization Address [facility] Co de Phone Number [facility] [address] [facility]. [address] * Transfuse Platelets (10/26/2024 4:14 AM EDT) Result [facility] Ben Blake MD NURSING TREATMENT ORDERABLES [...] Result Performing Organization Address [facility] Co de Phone Number [facility] [address] [facility]. [address] * POC Sample Type (10/26/2024 3:31 AM EDT) POC Sample Type Arterial 10/26/2024 4:11 AM EDT [facility] Blood, Arterial 10/26/2024 3 :31 AM EDT 10/26/2024 4:11 AM EDT us Semaj Mcnair III, MD POINT OF CARE TEST ORDERABLES Final Result Performing Organization Address [facility]/ZIP Co de Phone Number [facility] [address] [facility]. [address] * POC Anion Gap (10/26/2024 3:31 AM EDT) POC Anion Gap, Arterial 15 3 - 16 mmol/L 10/26/2024 4:11 AM EDT [facility] Blood, Arterial 10/26/2024 3 :31 AM EDT 10/26/2024 4:11 AM EDT us Semaj Mcnair III, MD POINT OF CARE TEST ORDERABLES Final Result Performing Organization Address [facility] Co de Phone Number [facility] [address] [place] [facility]. [address] * POC Chloride (10/26/2024 3:31 AM EDT) POC Chloride 105 98 - 110 mmol/L 10/26/2024 4:11 AM EDT [facility] Blood, Arterial 10/26/2024 3 :31 AM EDT 10/26/2024 4:11 AM EDT us Semaj Mcnair III, MD POINT OF CARE TEST ORDERABLES Final Result Performing Organization Address [facility] Co de Phone Number [facility] [address]. [address] * (ABNORMAL) POC Hemoglobin (10/26/2024 3:31 AM EDT) POC Hemoglobin 9.7(L) 14.0 - 18.0 g/dL 10/26/2024 4:11 AM EDT [facility] Blood, Arterial 10/26/2024 3 :31 AM EDT 10/26/2024 4:11 AM EDT us Semaj Mcnair III, MD POINT OF CARE TEST ORDERABLES Final Result Performing Organization Address City/[facility] Co de Phone Number [facility] [address] [facility]. [address] * (ABNORMAL) POC hematocrit (10/26/2024 3:31 AM EDT) POC Hematocrit 29.0(L) 40 - 52 % 10/26/2024 4:11 AM EDT [facility] Blood, Arterial 10/26/2024 3 :31 AM EDT 10/26/2024 4:11 AM EDT us Semaj Mcnair III, MD POINT OF CARE TEST ORDERABLES Final Result Performing Organization Address [facility] de Phone Number [facility] [address] [facility]. [address] * (ABNORMAL) POC Lactate (10/26/2024 3:31 AM EDT) POC Lactate 3.54(H) 0.50 - 2.20 mmol/L 10/26/2024 4:11 AM EDT [facility] Blood, Arterial 10/26/2024 3 :31 AM EDT 10/26/2024 4:11 AM EDT us Semaj Mcnair III, MD POINT OF CARE TEST ORDERABLES Final Result Performing Organization Address [facility] de Phone Number [facility] [address] [facility]. [address] * (ABNORMAL) POC Glucose (10/26/2024 3:31 AM EDT) POC Glucose, Arterial 153(H) 70 - 100 mg/dL 10/26/2024 4:11 AM EDT [facility] Blood, Arterial 10/26/2024 3 :31 AM EDT 10/26/2024 4:11 AM EDT us Semaj Mcnair III, MD POINT OF CARE TEST ORDERABLES Final Result Performing Organization Address [facility]/ZIP Co de Phone Number [facility] [address] * POC Ionized Calcium (10/26/2024 3:31 AM EDT) POC Ionized Calcium 5.10 4.50 - 5.30 mg/dL 10/26/2024 4:11 AM EDT [facility] Blood, Arterial 10/26/2024 3 :31 AM EDT 10/26/2024 4:11 AM EDT us Semaj Mcnair III, MD POINT OF CARE TEST ORDERABLES Final Result Performing Organization Address [facility] Co de Phone Number [facility] [address] * (ABNORMAL) POC Potassium (10/26/2024 3:31 AM EDT) POC Potassium 2.6(LL) 3.5 - 5.3 mmol/L 10/26/2024 4:11 AM EDT [facility] Blood, Arterial 10/26/2024 3 :31 AM EDT 10/26/2024 4:11 AM EDT us Semaj Mcnair III, MD POINT OF CARE TEST ORDERABLES Final Result Performing Organization Address [facility] Co de Phone Number [facility] [address] * POC Sodium (10/26/2024 3:31 AM EDT) POC Sodium 138 136 - 146 mmol/L 10/26/2024 4:11 AM EDT [facility] Blood, Arterial 10/26/2024 3 :31 AM EDT 10/26/2024 4:11 AM EDT us Semaj Mcnair III, MD POINT OF CARE TEST ORDERABLES Final Result Performing Organization Address City/[facility]/ZIP Co de Phone Number [facility] [address] * (ABNORMAL) POC TCO2 (10/26/2024 3:31 AM EDT) POC TCO2, Arterial 19(L) 23 - 27 mmol/L 10/26/2024 4:11 AM EDT [facility] Blood, Arterial 10/26/2024 3 :31 AM EDT 10/26/2024 4:11 AM EDT Semaj Mcnair III, MD POINT OF CARE TEST ORDERABLES Final Result [facility] [address] [facility]. [address] * POC O2 SAT (10/26/2024 3:31 AM EDT) POC O2 Saturation, Arterial 97 95 - 98 % 10/26/2024 4:11 AM EDT [facility] Blood, Arterial 10/26/2024 3 :31 AM EDT 10/26/2024 4:11 AM EDT us Semaj Mcnair III, MD POINT OF CARE TEST ORDERABLES Final Result [facility] [address] [place] [facility]. [address] * (ABNORMAL) POC Base Excess (10/26/2024 3:31 AM EDT) POC Base Excess, Arterial -9(L) -2 - 3 mmol/L 10/26/2024 4:11 AM EDT [facility] Blood, Arterial 10/26/2024 3 :31 AM EDT 10/26/2024 4:11 AM EDT us Semaj Mcnair III, MD POINT OF CARE TEST ORDERABLES Final Result [facility] [address] [place] [facility]. [address] * (ABNORMAL) POC HCO3 (10/26/2024 3:31 AM EDT) POC HCO3, Arterial 18(L) 22 - 26 mmol/L 10/26/2024 4:11 AM EDT [facility] Blood, Arterial 10/26/2024 3 :31 AM EDT 10/26/2024 4:11 AM EDT Semaj Mcnair III, MD POINT OF CARE TEST ORDERABLES Final Result [facility] [address] * (ABNORMAL) POC PO2 (10/26/2024 3:31 AM EDT) POC pO2, Arterial 104(H) 80 - 100 mm Hg 10/26/2024 4:11 AM EDT [facility] Blood, Arterial 10/26/2024 3 :31 AM EDT 10/26/2024 4:11 AM EDT us Semaj Mcnair III, MD POINT OF CARE TEST ORDERABLES Final Result Performing Organization Address [facility]/ZIP Co de Phone Number [facility] [address] * POC PCO2 (10/26/2024 3:31 AM EDT) POC pCO2, Arterial 42 35 - 45 mm Hg 10/26/2024 4:11 AM EDT [facility] Blood, Arterial 10/26/2024 3 :31 AM EDT 10/26/2024 4:11 AM EDT us Semaj Mcnair III, MD POINT OF CARE TEST ORDERABLES Final Result Performing Organization Address City/[facility]/ZIP Co de Phone Number [facility] [address] * (ABNORMAL) POC pH (10/26/2024 3:31 AM EDT) [facility] POC pH, Arterial 7.24(L) 7.35 - 7.45 10/26/2024 4:11 AM EDT [facility] Blood, Arterial 10/26/2024 3 :31 AM EDT 10/26/2024 4:11 AM EDT us Semaj Mcnair III, MD POINT OF CARE TEST ORDERABLES Final Result Performing Organization Address [facility]/ZIP Co de Phone Number [facility] [address] * (ABNORMAL) TEG-Global With Lysis (Baseline TEG with LY30, Will NOT Show Heparin Effect) (53:31 AM EDT) [facility] Citrated Kaolin Reaction Time (TEGLYSIS) 6.8 4.6 - 9.1 minutes 10/26/2024 5:02 AM EDT [facility] Citrated Rapid Teg Maximum Amplitude (TEGLYSIS) <40.0(L) 52.0 - 70.0 mm 10/26/2024 5:02 AM EDT [facility] Citrated Functional Fibrinogen Maximum Amplitude (TEGLYSIS) <4.0(L) 15.0 - 32.0 mm 10/26/2024 5:02 AM EDT [facility] Citrated Kaolin Percent Lysis (TEGLYSIS) 1.4 0.0 - 2.6 % 10/26/2024 5:02 AM EDT [facility] Whole Blood (Citrate) 10/26/2024 3:31 AM EDT 10/26/2024 3:40 AM EDT us Eber Quinones MD LAB BLOOD ORDERABLES Fin al Result [facility] [address] [facility]. [address] * (ABNORMAL) CBC (10/26/2024 3:31 AM EDT) [facility] WBC 9.5 3.8 - 10.8 10E3/uL 10/26/2024 3:48 AM EDT [facility] RBC 3.68(L) 4.20 - 5.80 10E6/uL 10/26/2024 3:48 AM EDT [facility] Hemoglobin 11.5(L) 13.2 - 17.1 g/dL 10/26/2024 3:48 AM EDT [facility] Hematocrit 33.0(L) 38.5 - 50.0 % 10/26/2024 3:48 AM EDT [facility] MCV 89.6 80.0 - 100.0 fL 10/26/2024 3:48 AM EDT [facility] MCH 31.1 27.0 - 33.0 pg 10/26/2024 3:48 AM EDT [facility] MCHC 34.8 32.0 - 36.0 g/dL 10/26/2024 3:48 AM EDT [facility] RDW 19.3(H) 11.0 - 15.0 % 10/26/2024 3:48 AM EDT [facility] Platelets 67(L) 140 - 400 10E3/uL 10/26/2024 3:48 AM EDT [facility] MPV 7.9 7.5 - 11.5 fL 10/26/2024 3:48 AM EDT [facility] Whole Blood 10/26/2024 3:31 AM EDT 10/26/2024 3:40 AM EDT us Eber Quinones MD LAB BLOOD ORDERABLES Fin al Result Performing Organization Address City/State/[facility] Co de Phone Number [facility] [address] * (ABNORMAL) Protime-INR (10/26/2024 3:31 AM EDT) Protime 27.0(H) 12.1 - 15.1 seconds 10/26/2024 3:51 AM EDT [facility] INR 2.4(H) 0.9 - 1.1 10/26/2024 3:51 AM EDT [facility] Comment: RECOMMENDED THERAPEUTIC RANGES USING INR : Stable oral anticoagulant therapy: 2.0 - 3.0 Mechanical prosthetic heart valve: 2.5 - 3.5 Recurrent acute myocardial infarction: 2.5 - 3.5 Plasma 10/26/2024 3:31 AM EDT 10/26/2024 3:40 AM EDT Result [facility] Eber Quinones MD LAB BLOOD ORDERABLES Fin al Result Performing Organization Address [facility] Co de Phone Number [facility] [address] [facility]. [address] * (ABNORMAL) Fibrinogen (10/26/2024 3:31 AM EDT) [facility] Fibrinogen 104(L) 218 - 406 mg/dL 10/26/2024 3:56 AM EDT [facility] Plasma 10/26/2024 3:31 AM EDT 10/26/2024 3:40 AM EDT Result [facility] Eber Quinones MD LAB BLOOD ORDERABLES Fin al Result Performing Organization Address [facility] Co de Phone Number [facility] [address] [facility]. [address] * Transfuse Fresh Frozen Plasma (10/26/2024 3:16 AM EDT) Result [facility] us Ben Blake MD NURSING [...] Frozen Plasma (10/26/2024 2:39 AM EDT) Result [facility] us Ben Blake MD NURSING TREATMENT ORDERABLES - BLOOD ADMIN Final Result * Transfuse Fresh Frozen Plasma (10/26/2024 2:24 AM EDT) Result [facility] us Ben Blake MD NURSING [...] Transfuse RBC (10/26/2024 1:45 AM EDT) Result [facility] us Ben Blake MD NURSING TREATMENT ORDERABLES - BLOOD ADMIN Final Result * (ABNORMAL) POC INR (10/26/2024 1:43 AM EDT) [facility] Prothrombin Time INR, POC 1.9(H) 0.8 [...] AM EDT 10/27/2024 6:51 AM EDT Result [facility] Semaj Mcnair III, MD POINT OF CARE TEST ORDERABLES Final Result [facility] [address] [place] [address], [facility] * Transfuse Fresh Frozen Plasma (10/26/2024 1:41 AM EDT) us Ben Blake MD NURSING TREATMENT ORDERABLES - BLOOD ADMIN Final Result * Transfuse RBC (10/26/2024 1:40 AM EDT) Ben Blake MD NURSING TREATMENT ORDERABLES - BLOOD ADMIN Final Result * POC Sample Type (10/26/2024 1:40 AM EDT) POC Sample Type Arterial 10/26/2024 2:32 AM EDT [facility] Blood, Arterial 10/26/2024 1 :40 AM EDT 10/26/2024 2:32 AM EDT Semaj Mcnair III, MD POINT OF CARE TEST ORDERABLES Final Result Performing Organization Address [facility] Co de Phone Number [facility] [address] [place] [address]. [address] * POC Anion Gap (10/26/2024 1:40 AM EDT) POC Anion Gap, Arterial 13 3 - 16 mmol/L 10/26/2024 2:32 AM EDT [facility] Blood, Arterial 10/26/2024 1 :40 AM EDT 10/26/2024 2:32 AM EDT Semaj Mcnair III, MD POINT OF CARE TEST ORDERABLES Final Result Performing Organization Address [facility] Co de Phone Number [facility] [address] [place] [address]. [address] * POC Chloride (10/26/2024 1:40 AM EDT) POC Chloride 104 98 - 110 mmol/L 10/26/2024 2:32 AM EDT [facility] Blood, Arterial 10/26/2024 1 :40 AM EDT 10/26/2024 2:32 AM EDT us Semaj Mcnair III, MD POINT OF CARE TEST ORDERABLES Final Result Performing Organization Address City/[facility]/ZIP Co de Phone Number [facility] [address] * (ABNORMAL) POC Hemoglobin (10/26/2024 1:40 AM EDT) POC Hemoglobin 7.4(L) 14.0 - 18.0 g/dL 10/26/2024 2:32 AM EDT [facility] Blood, Arterial 10/26/2024 1 :40 AM EDT 10/26/2024 2:32 AM EDT us Semaj Mcnair III, MD POINT OF CARE TEST ORDERABLES Final Result Performing Organization Address City/[facility]/ZIP Co de Phone Number [facility] [address] * (ABNORMAL) POC hematocrit (10/26/2024 1:40 AM EDT) POC Hematocrit 22.0(L) 40 - 52 % 10/26/2024 2:32 AM EDT [facility] Blood, Arterial 10/26/2024 1 :40 AM EDT 10/26/2024 2:32 AM EDT us Semaj Mcnair III, MD POINT OF CARE TEST ORDERABLES Final Result Performing Organization Address City/[facility]/ZIP Co de Phone Number [facility] [address] * (ABNORMAL) POC Lactate (10/26/2024 1:40 AM EDT) POC Lactate 2.30(H) 0.50 - 2.20 mmol/L 10/26/2024 2:32 AM EDT [facility] Blood, Arterial 10/26/2024 1 :40 AM EDT 10/26/2024 2:32 AM EDT us Semaj Mcnair III, MD POINT OF CARE TEST ORDERABLES Final Result [facility] [address] * (ABNORMAL) POC Glucose (10/26/2024 1:40 AM EDT) POC Glucose, Arterial 116(H) 70 - 100 mg/dL 10/26/2024 2:32 AM EDT [facility] Blood, Arterial 10/26/2024 1 :40 AM EDT 10/26/2024 2:32 AM EDT us Semaj Mcnair III, MD POINT OF CARE TEST ORDERABLES Final Result [facility] [address] [facility]. [address] * (ABNORMAL) POC Ionized Calcium (10/26/2024 1:40 AM EDT) POC Ionized Calcium 4.10(L) 4.50 - 5.30 mg/dL 10/26/2024 2:32 AM EDT [facility] Blood, Arterial 10/26/2024 1 :40 AM EDT 10/26/2024 2:32 AM EDT us Semaj Mcnair III, MD POINT OF CARE TEST ORDERABLES Final Result Performing Organization Address City/[facility]/ZIP Co de Phone Number [facility] [address] [facility]. [address] * (ABNORMAL) POC Potassium (10/26/2024 1:40 AM EDT) POC Potassium 2.6(LL) 3.5 - 5.3 mmol/L 10/26/2024 2:32 AM EDT [facility] Blood, Arterial 10/26/2024 1 :40 AM EDT 10/26/2024 2:32 AM EDT us Semaj Mcnair III, MD POINT OF CARE TEST ORDERABLES Final Result [facility] [address] * (ABNORMAL) POC Sodium (10/26/2024 1:40 AM EDT) POC Sodium 135(L) 136 - 146 mmol/L 10/26/2024 2:32 AM EDT [facility] Blood, Arterial 10/26/2024 1 :40 AM EDT 10/26/2024 2:32 AM EDT Semaj Mcnair III, MD POINT OF CARE TEST ORDERABLES Final Result [facility] [address] * (ABNORMAL) POC TCO2 (10/26/2024 1:40 AM EDT) POC TCO2, Arterial 19(L) 23 - 27 mmol/L 10/26/2024 2:32 AM EDT [facility] Blood, Arterial 10/26/2024 1 :40 AM EDT 10/26/2024 2:32 AM EDT us Semaj Mcnair III, MD POINT OF CARE TEST ORDERABLES Final Result Performing Organization Address City/[facility]/ZIP Co de Phone Number [facility] [address] * (ABNORMAL) POC O2 SAT (10/26/2024 1:40 AM EDT) POC O2 Saturation, Arterial 99(H) 95 - 98 % 10/26/2024 2:32 AM EDT [facility] Blood, Arterial 10/26/2024 1 :40 AM EDT 10/26/2024 2:32 AM EDT us Semaj Mcnair III, MD POINT OF CARE TEST ORDERABLES Final Result [facility] [address] * (ABNORMAL) POC Base Excess (10/26/2024 1:40 AM EDT) POC Base Excess, Arterial -7(L) -2 - 3 mmol/L 10/26/2024 2:32 AM EDT [facility] Blood, Arterial 10/26/2024 1 :40 AM EDT 10/26/2024 2:32 AM EDT Semaj Mcnair III, MD POINT OF CARE TEST ORDERABLES Final Result [facility] [address] * (ABNORMAL) POC HCO3 (10/26/2024 1:40 AM EDT) POC HCO3, Arterial 18(L) 22 - 26 mmol/L 10/26/2024 2:32 AM EDT [facility] Blood, Arterial 10/26/2024 1 :40 AM EDT 10/26/2024 2:32 AM EDT us Semaj Mcnair III, MD POINT OF CARE TEST ORDERABLES Final Result [facility] [address] * (ABNORMAL) POC PO2 (10/26/2024 1:40 AM EDT) POC pO2, Arterial 145(H) 80 - 100 mm Hg 10/26/2024 2:32 AM EDT [facility] Blood, Arterial 10/26/2024 1 :40 AM EDT 10/26/2024 2:32 AM EDT us Semaj Mcnair III, MD POINT OF CARE TEST ORDERABLES Final Result [facility] [address] * (ABNORMAL) POC PCO2 (10/26/2024 1:40 AM EDT) POC pCO2, Arterial 33(L) 35 - 45 mm Hg 10/26/2024 2:32 AM EDT [facility] Blood, Arterial 10/26/2024 1 :40 AM EDT 10/26/2024 2:32 AM EDT Semaj Mcnair III, MD POINT OF CARE TEST ORDERABLES Final Result Performing Organization Address City/[facility]/ZIP Co de Phone Number [facility] [address] * POC pH (10/26/2024 1:40 AM EDT) POC pH, Arterial 7.35 7.35 - 7.45 10/26/2024 2:32 AM EDT [facility] Blood, Arterial 10/26/2024 1 :40 AM EDT 10/26/2024 2:32 AM EDT Semaj Mcnair III, MD POINT OF CARE TEST ORDERABLES Final Result Performing Organization Address City/[facility]/ZIP Co de Phone Number [facility] [address] * Transfuse Fresh Frozen Plasma (10/26/2024 1:20 AM EDT) Ben Blake MD NURSING TREATMENT ORDERABLES - BLOOD ADMIN Final Result * Transfuse RBC (10/26/2024 12:56 AM EDT) Ben Blake MD NURSING TREATMENT ORDERABLES - BLOOD ADMIN Final Result * (ABNORMAL) POC INR (10/26/2024 12:41 AM EDT) Prothrombin Time INR, POC 2.0(H) 0.8 - 1.4 10/27/2024 6:51 AM EDT [facility] Comment: Test results may vary using [...] TEST ORDERABLES Final Result Performing Organization Address City/[facility] Co de Phone Number [facility] [address] [place] [address]. [address] * POC Sample Type (10/26/2024 12:39 AM EDT) POC Sample Type Arterial 10/26/2024 1:38 AM EDT [facility] Blood, Arterial 10/26/2024 1 2:39 AM EDT 10/26/2024 1:38 AM EDT Semaj Mcnair III, MD POINT OF CARE TEST ORDERABLES Final Result Performing Organization Address [facility] Co de Phone Number [facility] [address] [place] [address]. [address] * POC Anion Gap (10/26/2024 12:39 AM EDT) POC Anion Gap, Arterial 13 3 - 16 mmol/L 10/26/2024 1:38 AM EDT [facility] Blood, Arterial 10/26/2024 1 2:39 AM EDT 10/26/2024 1:38 AM EDT us Semaj Mcnair III, MD POINT OF CARE TEST ORDERABLES Final Result Performing Organization Address City/[facility] Co de Phone Number [facility] [address] [place] [address]. [address] * POC Chloride (10/26/2024 12:39 AM EDT) POC Chloride 103 98 - 110 mmol/L 10/26/2024 1:38 AM EDT [facility] Blood, Arterial 10/26/2024 1 2:39 AM EDT 10/26/2024 1:38 AM EDT us Semaj Mcnair III, MD POINT OF CARE TEST ORDERABLES Final Result [facility] [address] [facility]. [address] * (ABNORMAL) POC Hemoglobin (10/26/2024 12:39 AM EDT) POC Hemoglobin 7.9(L) 14.0 - 18.0 g/dL 10/26/2024 1:38 AM EDT [facility] Blood, Arterial 10/26/2024 1 2:39 AM EDT 10/26/2024 1:38 AM EDT us Semaj Mcnair III, MD POINT OF CARE TEST ORDERABLES Final Result Performing Organization Address [facility] Co de Phone Number [facility] [address] [place] [facility]. [address] * (ABNORMAL) POC hematocrit (10/26/2024 12:39 AM EDT) POC Hematocrit 23.0(L) 40 - 52 % 10/26/2024 1:38 AM EDT [facility] Blood, Arterial 10/26/2024 1 2:39 AM EDT 10/26/2024 1:38 AM EDT us Semaj Mcnair III, MD POINT OF CARE TEST ORDERABLES Final Result Performing Organization Address City/[facility] Co de Phone Number [facility] [address] [facility]. [address] * POC Lactate (10/26/2024 12:39 AM EDT) POC Lactate 1.39 0.50 - 2.20 mmol/L 10/26/2024 1:38 AM EDT [facility] Blood, Arterial 10/26/2024 1 2:39 AM EDT 10/26/2024 1:38 AM EDT us Semaj Mcnair III, MD POINT OF CARE TEST ORDERABLES Final Result Performing Organization Address City/[facility]/ZIP Co de Phone Number [facility] [address] * (ABNORMAL) POC Glucose (10/26/2024 12:39 AM EDT) POC Glucose, Arterial 116(H) 70 - 100 mg/dL 10/26/2024 1:38 AM EDT [facility] Blood, Arterial 10/26/2024 1 2:39 AM EDT 10/26/2024 1:38 AM EDT us Semaj Mcnair III, MD POINT OF CARE TEST ORDERABLES Final Result Performing Organization Address [facility] Co de Phone Number [facility] [address] [facility]. [address] * (ABNORMAL) POC Ionized Calcium (10/26/2024 12:39 AM EDT) POC Ionized Calcium 4.30(L) 4.50 - 5.30 mg/dL 10/26/2024 1:38 AM EDT [facility] Blood, Arterial 10/26/2024 1 2:39 AM EDT 10/26/2024 1:38 AM EDT us Semaj Mcnair III, MD POINT OF CARE TEST ORDERABLES Final Result Performing Organization Address City/[facility] Co de Phone Number [facility] [address] [place] [facility]. [address] * (ABNORMAL) POC Potassium (10/26/2024 12:39 AM EDT) POC Potassium 2.4(LL) 3.5 - 5.3 mmol/L 10/26/2024 1:38 AM EDT [facility] Blood, Arterial 10/26/2024 1 2:39 AM EDT 10/26/2024 1:38 AM EDT us Semaj Mcnair III, MD POINT OF CARE TEST ORDERABLES Final Result [facility] [address] [facility]. [address] * POC Sodium (10/26/2024 12:39 AM EDT) POC Sodium 136 136 - 146 mmol/L 10/26/2024 1:38 AM EDT [facility] Blood, Arterial 10/26/2024 1 2:39 AM EDT 10/26/2024 1:38 AM EDT us Semaj Mcnair III, MD POINT OF CARE TEST ORDERABLES Final Result Performing Organization Address [facility] Co de Phone Number [facility] [address] [facility]. [address] * (ABNORMAL) POC TCO2 (10/26/2024 12:39 AM EDT) POC TCO2, Arterial 21(L) 23 - 27 mmol/L 10/26/2024 1:38 AM EDT [facility] Blood, Arterial 10/26/2024 1 2:39 AM EDT 10/26/2024 1:38 AM EDT us Semaj Mcnair III, MD POINT OF CARE TEST ORDERABLES Final Result Performing Organization Address City/[facility]/ZIP Co de Phone Number [facility] [address] [facility]. [address] * POC O2 SAT (10/26/2024 12:39 AM EDT) POC O2 Saturation, Arterial 98 95 - 98 % 10/26/2024 1:38 AM EDT [facility] Blood, Arterial 10/26/2024 1 2:39 AM EDT 10/26/2024 1:38 AM EDT us Semaj Mcnair III, MD POINT OF CARE TEST ORDERABLES Final Result Performing Organization Address City/[facility]/ZIP Co de Phone Number [facility] [address] [facility]. [address] * (ABNORMAL) POC Base Excess (10/26/2024 12:39 AM EDT) POC Base Excess, Arterial -7(L) -2 - 3 mmol/L 10/26/2024 1:38 AM EDT [facility] Blood, Arterial 10/26/2024 1 2:39 AM EDT 10/26/2024 1:38 AM EDT us Semaj Mcnair III, MD POINT OF CARE TEST ORDERABLES Final Result Performing Organization Address [facility] Co de Phone Number [facility] [address] [place] [address] * (ABNORMAL) POC HCO3 (10/26/2024 12:39 AM EDT) POC HCO3, Arterial 20(L) 22 - 26 mmol/L 10/26/2024 1:38 AM EDT [facility] Blood, Arterial 10/26/2024 1 2:39 AM EDT 10/26/2024 1:38 AM EDT us Semaj Mcnair III, MD POINT OF CARE TEST ORDERABLES Final Result Performing Organization Address City/[facility]/ZIP Co de Phone Number [facility] [address] [place] [facility]. [address] * (ABNORMAL) POC PO2 (10/26/2024 12:39 AM EDT) POC pO2, Arterial 117(H) 80 - 100 mm Hg 10/26/2024 1:38 AM EDT [facility] Blood, Arterial 10/26/2024 1 2:39 AM EDT 10/26/2024 1:38 AM EDT Semaj Mcnair III, MD POINT OF CARE TEST ORDERABLES Final Result Performing Organization Address City/[facility]/ZIP Co de Phone Number [facility] [facility] [address] * (ABNORMAL) POC PCO2 (10/26/2024 12:39 AM EDT) POC pCO2, Arterial 46(H) 35 - 45 mm Hg 10/26/2024 1:38 AM EDT [facility] Blood, Arterial 10/26/2024 1 2:39 AM EDT 10/26/2024 1:38 AM EDT Semaj Mcnair III, MD POINT OF CARE TEST ORDERABLES Final Result Performing Organization Address [facility] Co de Phone Number [facility] [address] [facility]. [address] * (ABNORMAL) POC pH (10/26/2024 12:39 AM EDT) POC pH, Arterial 7.24(L) 7.35 - 7.45 10/26/2024 1:38 AM EDT [facility] Blood, Arterial 10/26/2024 1 2:39 AM EDT 10/26/2024 1:38 AM EDT Semaj Mcnair III, MD POINT OF CARE TEST ORDERABLES Final Result Performing Organization Address City/[facility] Co de Phone Number [facility] [address] [facility]. [address] * Transfuse Platelets (10/26/2024 12:37 AM EDT) Result [facility] Ben Blake MD NURSING TREATMENT ORDERABLES [...] AM EDT) Gram Stain Result Cytospin Results: [facility] Gram Stain Result Polymorphonuclear Leukocytes Seen; [facility] Gram Stain Result No Organisms Seen; [facility] Culture Result No Growth After 3 Days [facility] Surgical Swab ABDOMEN / Unknown 12:03 AM EDT Comment:2.) Ascites Anaerobhic culture Fungus culture Routine culture plus stain Narrative [facility] - 10/28/2024 9:38 PM EDT 2.) Ascites Anaerobhic culture Fungus culture Routine culture plus stain 2.) Ascites Semaj Mcnair III, MD MICROBIOLOGY - GENE RAL ORDERABLES Final Result [facility] [address] * Surgical Pathology Exam (10/26/2024 12:00 AM EDT) 10/26/2024 10/27/2024 Narrative [facility] - 10/26/2024 12:00 AM EDT CASE: [id number] PATIENT: BLAIR GILBERT Clinical History: Liver - kidney transplant Pre-Operative Diagnosis: Alcoholic cirrhosis of liver Post-Operative Diagnosis: Alcoholic cirrhosis of liver Specimen(s) Submitted: A. [place] [facility] CPT Code(s): 78087 X 1; 13620 X 5 Additional Information: FINAL DIAGNOSIS: A. 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 - Negative for neoplasm. - Increased hepatocellular iron deposition (3+; Modified Scheuer). Gall bladder: -Intramucosal and submucosal vascular congestion and hemorrhage. - Negative for dysplasia or malignancy. Gross Description: Received in formalin, labeled Blair Gilbert and [place] [facility] , is a 2338-gram, hepatectomy specimen [...] discrete masses or other lesions are identified. Speed [employer] Sander Tender sections are submitted in cassettes [id number] as follows: A1: Hilar margins, en face. [...] Pathologist signing this report is located at [facility], [address] [place] [address], [place], [place], [facility], , CLIA ID: [id number] us Semaj Mcnair III, MD PATHOLOGY/CYTOLOGY ORDERABLES [...] 0.8 - 1.4 10/27/2024 6:51 AM EDT [facility] Comment: Test results may vary using [...] Final Result [facility] [address] [place] [address] * POC Sample Type (10/25/2024 11:40 PM EDT) POC Sample Type Arterial 10/25/2024 11:57 PM EDT [facility] Blood, Arterial 10/25/2024 1 1:40 PM EDT 10/25/2024 11:57 PM EDT us Semaj Mcnair III, MD POINT OF CARE TEST ORDERABLES Final Result [facility] [address] [facility]. [address] * POC Anion Gap (10/25/2024 11:40 PM EDT) POC Anion Gap, Arterial 13 3 - 16 mmol/L 10/25/2024 11:57 PM EDT [facility] Blood, Arterial 10/25/2024 1 1:40 PM EDT 10/25/2024 11:57 PM EDT us Semaj Mcnair III, MD POINT OF CARE TEST ORDERABLES Final Result Performing Organization Address City/[facility]/ZIP Co de Phone Number [facility] [address] * POC Chloride (10/25/2024 11:40 PM EDT) Pathologist [facility] POC Chloride 102 98 - 110 mmol/L 10/25/2024 11:57 PM EDT [facility] Blood, Arterial 10/25/2024 1 1:40 PM EDT 10/25/2024 11:57 PM EDT us Semaj Mcnair III, MD POINT OF CARE TEST ORDERABLES Final Result [facility] [address] [facility]. [address] * (ABNORMAL) POC Hemoglobin (10/25/2024 11:40 PM EDT) Pathologist [facility] POC Hemoglobin 6.6(L) 14.0 - 18.0 g/dL 10/25/2024 11:57 PM EDT [facility] Blood, Arterial 10/25/2024 1 1:40 PM EDT 10/25/2024 11:57 PM EDT us Semaj Mcnair III, MD POINT OF CARE TEST ORDERABLES Final Result Performing Organization Address City/[facility]/ZIP Co de Phone Number [facility] [address] [facility]. [address] * (ABNORMAL) POC hematocrit (10/25/2024 11:40 PM EDT) POC Hematocrit 19.0(L) 40 - 52 % 10/25/2024 11:57 PM EDT [facility] Blood, Arterial 10/25/2024 1 1:40 PM EDT 10/25/2024 11:57 PM EDT us Semaj Mcnair III, MD POINT OF CARE TEST ORDERABLES Final Result Performing Organization Address [facility]/ZIP Co de Phone Number [facility] [address] [facility]. [address] * POC Lactate (10/25/2024 11:40 PM EDT) Pathologist [facility] POC Lactate 1.36 0.50 - 2.20 mmol/L 10/25/2024 11:57 PM EDT [facility] Blood, Arterial 10/25/2024 1 1:40 PM EDT 10/25/2024 11:57 PM EDT Semaj Mcnair III, MD POINT OF CARE TEST ORDERABLES Final Result [facility] [address] [facility]. [address] * (ABNORMAL) POC Glucose (10/25/2024 11:40 PM EDT) POC Glucose, Arterial 101(H) 70 - 100 mg/dL 10/25/2024 11:57 PM EDT [facility] Blood, Arterial 10/25/2024 1 1:40 PM EDT 10/25/2024 11:57 PM EDT Semaj Mcnair III, MD POINT OF CARE TEST ORDERABLES Final Result Performing Organization Address [facility] Co de Phone Number [facility] [address] [address] * POC Ionized Calcium (10/25/2024 11:40 PM EDT) POC Ionized Calcium 4.50 4.50 - 5.30 mg/dL 10/25/2024 11:57 PM EDT [facility] Blood, Arterial 10/25/2024 1 1:40 PM EDT 10/25/2024 11:57 PM EDT Semaj Mcnair III, MD POINT OF CARE TEST ORDERABLES Final Result Performing Organization Address [facility] Co de Phone Number [facility] [address] [facility]. [address] * (ABNORMAL) POC Potassium (10/25/2024 11:40 PM EDT) Pathologist [facility] POC Potassium 1.9(LL) 3.5 - 5.3 mmol/L 10/25/2024 11:57 PM EDT [facility] Blood, Arterial 10/25/2024 1 1:40 PM EDT 10/25/2024 11:57 PM EDT Semaj Mcnair III, MD POINT OF CARE TEST ORDERABLES Final Result Performing Organization Address [facility] Co de Phone Number [facility] [address] [facility]. [address] * (ABNORMAL) POC Sodium (10/25/2024 11:40 PM EDT) POC Sodium 135(L) 136 - 146 mmol/L 10/25/2024 11:57 PM EDT [facility] Blood, Arterial 10/25/2024 1 1:40 PM EDT 10/25/2024 11:57 PM EDT us Semaj Mcnair III, MD POINT OF CARE TEST ORDERABLES Final Result Performing Organization Address [facility] Co de Phone Number [facility] [address] [facility]. [address] * (ABNORMAL) POC TCO2 (10/25/2024 11:40 PM EDT) POC TCO2, Arterial 21(L) 23 - 27 mmol/L 10/25/2024 11:57 PM EDT [facility] Blood, Arterial 10/25/2024 1 1:40 PM EDT 10/25/2024 11:57 PM EDT us Semaj Mcnair III, MD POINT OF CARE TEST ORDERABLES Final Result Performing Organization Address [facility] Co de Phone Number [facility] [address]. [address] * POC O2 SAT (10/25/2024 11:40 PM EDT) Pathologist [facility] POC O2 Saturation, Arterial 98 95 - 98 % 10/25/2024 11:57 PM EDT [facility] Blood, Arterial 10/25/2024 1 1:40 PM EDT 10/25/2024 11:57 PM EDT us Semaj Mcnair III, MD POINT OF CARE TEST ORDERABLES Final Result Performing Organization Address [facility] Co de Phone Number [facility] [address]. [address] * (ABNORMAL) POC Base Excess (10/25/2024 11:40 PM EDT) POC Base Excess, Arterial -6(L) -2 - 3 mmol/L 10/25/2024 11:57 PM EDT [facility] Blood, Arterial 10/25/2024 1 1:40 PM EDT 10/25/2024 11:57 PM EDT us Semaj Mcnair III, MD POINT OF CARE TEST ORDERABLES Final Result Performing Organization Address [facility] Co de Phone Number [facility] [address] * (ABNORMAL) POC HCO3 (10/25/2024 11:40 PM EDT) POC HCO3, Arterial 20(L) 22 - 26 mmol/L 10/25/2024 11:57 PM EDT [facility] Blood, Arterial 10/25/2024 1 1:40 PM EDT 10/25/2024 11:57 PM EDT Semaj Mcnair III, MD POINT OF CARE TEST ORDERABLES Final Result Performing Organization Address [facility] Co de Phone Number [facility] [address] [facility]. [address] * (ABNORMAL) POC PO2 (10/25/2024 11:40 PM EDT) POC pO2, Arterial 107(H) 80 - 100 mm Hg 10/25/2024 11:57 PM EDT [facility] Blood, Arterial 10/25/2024 1 1:40 PM EDT 10/25/2024 11:57 PM EDT Semaj Mcnair III, MD POINT OF CARE TEST ORDERABLES Final Result Performing Organization Address [facility] Co de Phone Number [facility] [address] [facility]. [address] * POC PCO2 (10/25/2024 11:40 PM EDT) POC pCO2, Arterial 41 35 - 45 mm Hg 10/25/2024 11:57 PM EDT [facility] Blood, Arterial 10/25/2024 1 1:40 PM EDT 10/25/2024 11:57 PM EDT us Semaj Mcnair III, MD POINT OF CARE TEST ORDERABLES Final Result Performing Organization Address City/[facility]/ZIP Co de Phone Number [facility] [address] * (ABNORMAL) POC pH (10/25/2024 11:40 PM EDT) POC pH, Arterial 7.29(L) 7.35 - 7.45 10/25/2024 11:57 PM EDT [facility] Blood, Arterial 10/25/2024 1 1:40 PM EDT 10/25/2024 11:57 PM EDT Semaj Mcnair III, MD POINT OF CARE TEST ORDERABLES Final Result Performing Organization Address [facility] Co de Phone Number [facility] [address] * Urine culture (10/25/2024 11:08 PM EDT) Culture Result <1,000 cfu/mL [facility] Culture Result Skin/Urogeni rony Mckayla. No Further Workup. [facility] Newly Placed Berkowizt Urine URINE SPECIMEN / Unknown 10/25/2024 11:08 PM EDT Comment:urine culture Narrative [facility] - 10/28/2024 9:59 AM EDT urine culture urine culture us Semaj Mcnair III, MD MICROBIOLOGY - GENE RAL ORDERABLES Final Result Performing Organization Address City/[facility]/ZIP Co de Phone Number [facility] [address] * X-ray Portable Chest (10/25/2024 10:19 [...] 10/25/2024 10:38 PM EDT Leandra Og MD [facility] DIAGNOSTIC IMAGING ORDERABLES Final Result * Lactic Acid, STAT (10/25/2024 10:17 PM EDT) Lactate 1.6 0.5 - 2.2 mmol/L 10/25/2024 10:39 PM EDT [facility] Plasma 10/25/2024 10:1 7 PM EDT 10/25/2024 10:17 PM EDT Ben Blake MD LAB BLOOD ORDERABLES Final Re sult [facility] [address] [facility] [address] * (ABNORMAL) Ferritin (10/25/2024 10:17 PM EDT) Ferritin 623.2(H) 23.9 - 336.2 ng/mL 10/25/2024 11:02 PM EDT [facility] Serum 10/25/2024 10:1 7 PM EDT 10/25/2024 10:17 PM EDT Result [facility] Leandra Og MD LAB BLOOD ORDERABLES F inal Result Performing Organization Address [facility]/ZIP Co de Phone Number [facility] [address] [facility]. [address] * Iron Studies (Iron + TIBC) [...] PM EDT 10/25/2024 10:17 PM EDT Result [facility] Leandra Og MD LAB BLOOD ORDERABLES F inal Result [facility] [address] * PTH (10/25/2024 10:17 PM EDT) PTH 36.0 12.0 - 88.0 pg/mL 10/25/2024 11:01 PM EDT [facility] Serum 10/25/2024 10:1 7 PM EDT 10/25/2024 10:17 PM EDT us Leandra Og MD LAB BLOOD ORDERABLES F inal Result Performing Organization Address City/[facility]/ZIP Co de Phone Number [facility] [address] [place] [address]. [address] * HIV 1+2 Antibody/Antigen with Reflex (10/25/2024 10:17 PM EDT) Pathologist [facility] HIV 1+2 AB/AGN Nonreactive Nonreactive 10/25/2024 11:03 PM EDT [facility] Serum 10/25/2024 10:1 7 PM EDT 10/25/2024 10:16 PM EDT Narrative [facility] - 10/25/2024 11:03 PM EDT \HIVRNR us Leandra Og MD LAB BLOOD ORDERABLES F inal Result Performing Organization Address City/[facility] Co de Phone Number [facility] [address] [place] [address]. [address] * Hepatitis B Core Antibody (10/25/2024 10:17 PM EDT) Hep B Core Total Ab Nonreactive Nonreactive 10/25/2024 11:07 PM EDT [facility] Comment:Health Department no tified in accordance with reportable infectious disease guidelines. Serum 10/25/2024 10:1 7 PM EDT 10/25/2024 10:17 PM EDT Narrative [facility] - 10/25/2024 11:07 PM EDT A nonreactive final interpretation indicates that anti-HBc antibodies were not detected in the sample; it is possible that the individual is not infected with HBV. us Leandra Og MD LAB BLOOD ORDERABLES F inal Result [facility] [address] * Hepatitis C Antibody (10/25/2024 10:17 PM EDT) HCV Ab Nonreactive Nonreactive 10/25/2024 11:16 PM EDT [facility] Comment:Health Department no tified in accordance with reportable infectious disease guidelines. Serum 10/25/2024 10:1 7 PM EDT 10/25/2024 10:17 PM EDT Narrative [facility] - 10/25/2024 11:16 PM EDT Antibodies to HCV not detected; does not exclude the possibility of exposure to HCV. Leandra Og MD LAB BLOOD ORDERABLES F inal Result Performing Organization Address [facility] Co de Phone Number [facility] [address] * (ABNORMAL) Hepatitis B Surface Antibody, Quantitati (10/25/2024 10:17 PM EDT) HBSAB NUMBER 10.70(H) 0.00 - 9.99 mIU/mL 10/25/2024 11:52 PM EDT [facility] Hep B S Ab Equivocal (A) Nonreactive 10/25/2024 11:52 PM EDT [facility] Serum 10/25/2024 10:1 7 PM EDT 10/25/2024 10:17 PM EDT Leandra Og MD LAB BLOOD ORDERABLES F inal Result Performing Organization Address City/[facility]/ZIP Co de Phone Number [facility] [address] [facility]. [address] * Hepatitis B surface antigen (10/25/2024 10:17 PM EDT) Hep B Surface Ag Nonreactive Nonreactive 10/25/2024 11:12 PM EDT [facility] Comment:Health Department no tified in accordance with reportable infectious disease guidelines. Serum 10/25/2024 10:1 7 PM EDT 10/25/2024 10:17 PM EDT Narrative [facility] - 10/25/2024 11:12 PM EDT Specimen is considered negative for HBsAg. Leandra Og MD LAB BLOOD ORDERABLES F inal Result Performing Organization Address City/[facility]/ZIP Co de Phone Number [facility] [address] [facility]. [address] * Hepatitis A Antibody Total (10/25/2024 10:17 PM EDT) Anti-HAV Total (IgG + IgM) Nonreactive 10/25/2024 11:13 PM EDT [facility] Serum 10/25/2024 10:1 7 PM EDT 10/25/2024 10:17 PM EDT Narrative [facility] - 10/25/2024 11:13 PM EDT HAV antibodies not detected Leandra Og MD LAB BLOOD ORDERABLES F inal Result Performing Organization Address [facility] Co de Phone Number [facility] [address] [facility]. [address] * (ABNORMAL) Hepatic Function Panel (10/25/2024 10:17 PM EDT) Total Bilirubin 9.1(H) 0.0 - 1.5 mg/dL 10/25/2024 10:47 PM EDT [facility] Bilirubin, Direct 4.58(H) 0.00 - 0.40 mg/dL 10/25/2024 10:47 PM EDT [facility] AST 51(H) 13 - 39 U/L 10/25/2024 10:47 PM EDT [facility] ALT 23 7 - 52 U/L 10/25/2024 10:47 PM EDT [facility] Alkaline Phosphatase 144(H) 36 - 125 U/L 10/25/2024 10:47 PM EDT [facility] Total Protein 5.5(L) 6.4 - 8.9 g/dL 10/25/2024 10:47 PM EDT [facility] Albumin 3.5 3.5 - 5.7 g/dL 10/25/2024 10:47 PM EDT [facility] Bilirubin, Indirect 4.52(H) 0.00 - 1.10 mg/dL 10/25/2024 10:47 PM EDT [facility] Plasma 10/25/2024 10:1 7 PM EDT 10/25/2024 10:17 PM EDT us Leandra Og MD LAB BLOOD ORDERABLES F inal Result [facility] [address] [facility] [place] [address], [facility] * (ABNORMAL) Renal Function Panel w/EGFR (10/25/2024 10:17 PM EDT) Sodium 137 133 - 146 mmol/L 10/25/2024 10:47 PM EDT [facility] Potassium 2.1(LL) 3.5 - 5.3 mmol/L 10/25/2024 10:47 PM EDT [facility] Comment:Critical Result K:2. 1 Called to and read back by: ALICIA CARCAMO RN at: 10/25/2024 22:47:45 by:NANCY Chloride 100 98 - 110 mmol/L 10/25/2024 10:47 PM EDT [facility] CO2 20(L) 21 - 33 mmol/L 10/25/2024 10:47 PM EDT [facility] Anion Gap 17(H) 3 - 16 mmol/L 10/25/2024 10:47 PM EDT [facility] BUN 74(H) 7 - 25 mg/dL 10/25/2024 10:47 PM EDT [facility] Creatinine 3.87(H) 0.60 - 1.30 mg/dL 10/25/2024 10:47 PM EDT [facility] Glucose 114(H) 70 - 100 mg/dL 10/25/2024 10:47 PM EDT [facility] Calcium 9.3 8.6 - 10.3 mg/dL 10/25/2024 10:47 PM EDT [facility] Phosphorus 5.9(H) 2.1 - 4.7 mg/dL 10/25/2024 10:47 PM EDT [facility] Albumin 3.5 3.5 - 5.7 g/dL 10/25/2024 10:47 PM EDT [facility] Osmolality, Calculated 307(H) 278 - 305 mOsm/kg 10/25/2024 10:47 PM EDT [facility] EGFR 19 10/25/2024 10:47 PM EDT [facility] Comment:As of 2021, the estimated GFR [...] inal Result [facility] [address] * (ABNORMAL) APTT, NO ANTICOAGULANT (10/25/2024 10:17 PM EDT) aPTT 41.7(H) 25.5 - 35.0 seconds 10/25/2024 10:36 PM EDT [facility] Plasma 10/25/2024 10:1 7 PM EDT 10/25/2024 10:17 PM EDT us Leandra Og MD LAB BLOOD ORDERABLES F inal Result Performing Organization Address [facility] Co de Phone Number [facility] [address] [facility]. [address] * (ABNORMAL) Protime-INR (10/25/2024 10:17 PM EDT) Pathologist [facility] Protime 21.7(H) 12.1 - 15.1 seconds 10/25/2024 10:35 PM EDT [facility] INR 1.8(H) 0.9 - 1.1 10/25/2024 10:35 PM EDT [facility] Comment: RECOMMENDED THERAPEUTIC RANGES USING INR : Stable oral anticoagulant therapy: 2.0 - 3.0 Mechanical prosthetic heart valve: 2.5 - 3.5 Recurrent acute myocardial infarction: 2.5 - 3.5 Plasma 10/25/2024 10:1 7 PM EDT 10/25/2024 10:17 PM EDT Leandra Og MD LAB BLOOD ORDERABLES F inal Result Performing Organization Address [facility] Co de Phone Number [facility] [address] [place] [facility]. [address] * (ABNORMAL) Differential (10/25/2024 10:17 PM EDT) [facility] Differential Comments See Note 10/25/2024 10:54 PM EDT [facility] Comment: _Platelets Appear Decreased _Platelet Morphology Normal Scan Result PERFORMED 10/25/2024 10:54 PM EDT [facility] Neutrophils Relative 79.8 40.0 - 80.0 % 10/25/2024 10:54 PM EDT [facility] Lymphocytes Relative 9.6(L) 15.0 - 45.0 % 10/25/2024 10:54 PM EDT [facility] Monocytes Relative 8.9 0.0 - 12.0 % 10/25/2024 10:54 PM EDT [facility] Eosinophils Relative 1.3 0.0 - 8.0 % 10/25/2024 10:54 PM EDT [facility] Basophils Relative 0.4 0.0 - 1.0 % 10/25/2024 10:54 PM EDT [facility] nRBC 0 0 - 0 /100 WBC 10/25/2024 10:54 PM EDT [facility] Neutrophils Absolute 4,948 1,520 - 8,640 /uL 10/25/2024 10:54 PM EDT [facility] Lymphocytes Absolute 595 570 - 4,860 /uL 10/25/2024 10:54 PM EDT [facility] Monocytes Absolute 552 0 - 1,296 /uL 10/25/2024 10:54 PM EDT [facility] Eosinophils Absolute 81 0 - 864 /uL 10/25/2024 10:54 PM EDT [facility] Basophils Absolute 25 0 - 108 /uL 10/25/2024 10:54 PM EDT [facility] PLT Morphology Platelet morphology appears normal 10/25/2024 10:54 PM EDT [facility] Whole Blood 10/25/2024 10:1 7 PM EDT 10/25/2024 10:17 PM EDT us Leandra Og MD LAB BLOOD ORDERABLES F inal Result [facility] [address] * (ABNORMAL) CBC (10/25/2024 10:17 PM EDT) WBC 6.2 3.8 - 10.8 10E3/uL 10/25/2024 10:54 PM EDT [facility] RBC 2.40(L) 4.20 - 5.80 10E6/uL 10/25/2024 10:54 PM EDT [facility] Hemoglobin 8.3(L) 13.2 - 17.1 g/dL 10/25/2024 10:54 PM EDT [facility] Hematocrit 23.7(L) 38.5 - 50.0 % 10/25/2024 10:54 PM EDT [facility] MCV 98.9 80.0 - 100.0 fL 10/25/2024 10:54 PM EDT [facility] MCH 34.6(H) 27.0 - 33.0 pg 10/25/2024 10:54 PM EDT [facility] [facility] MCHC 35.0 32.0 - 36.0 g/dL 10/25/2024 10:54 PM EDT [facility] RDW 17.8(H) 11.0 - 15.0 % 10/25/2024 10:54 PM EDT [facility] Platelets 56(L) 140 - 400 10E3/uL 10/25/2024 10:54 PM EDT [facility] Comment: Specimen checked for clots. None detected. Slide Reviewed for PLT Clumps. None Seen. Platelet Estimate Decreased 10/25/2024 10:54 PM EDT [facility] MPV 8.1 7.5 - 11.5 fL 10/25/2024 10:54 PM EDT [facility] Whole Blood 10/25/2024 10:1 7 PM EDT 10/25/2024 10:17 PM EDT Narrative [facility] - 10/25/2024 10:54 PM EDT Peripheral blood smear was scanned per review criteria approved by the laboratory medical operations supervisor. Leandra Og MD LAB BLOOD ORDERABLES F inal Result Performing Organization Address [facility] Co de Phone Number [facility] [address] [place] [address] * Donor Specific Antibody (DSA) (10/25/2024 10:00 PM EDT) AntiDonor Antibodies The request and specimen(s) for this test have been received and transported to the [facility] at [address] [place] [address]. The [facility] will report results directly to the client. 10/25/2024 10:20 PM EDT [facility] Comment:Testing performed by [facility], [facility], [address] [place] [address]. [facility] report has been forwarded to the appropriate ordering location. Please refer to this report for patient results. Serum 10/25/2024 10:0 0 PM EDT 10/25/2024 10:20 PM EDT Leandra Og MD LAB BLOOD ORDERABLES F inal Result [facility] [address] * (ABNORMAL) Venous Blood Gas, Line/Syringe (10/25/2024 10:00 PM EDT) PH-Line Draw 7.38 7.32 - 7.42 10/25/2024 10:08 PM EDT [facility] PCO2-Line Draw 33(L) 41 - 51 mm Hg 10/25/2024 10:08 PM EDT [facility] PO2-Line Draw 33 25 - 40 mm Hg 10/25/2024 10:08 PM EDT [facility] HCO3-Line Draw 20(L) 24 - 28 mmol/L 10/25/2024 10:08 PM EDT [facility] CO2 Content-Line Draw 21(L) 25 - 29 mmol/L 10/25/2024 10:08 PM EDT [facility] Base Excess-Line Draw -5.0(L) -2.0 - 3.0 mmol/L 10/25/2024 10:08 PM EDT [facility] %HBO2-Line Draw 53.8 40.0 - 70.0 % 10/25/2024 10:08 PM EDT [facility] Carboxyhgb-Ludivina e Draw 1.9 % 10/25/2024 10:08 PM EDT [facility] Comment: CARBOXYHEMOGLOBIN (CO) REFERENCE RANGES: Non-Smokers: <2 % Smokers: <8 % TOXIC: >20 % Methemoglobin- Line Draw 0.2 0.0 - 1.5 % 10/25/2024 10:08 PM EDT [facility] Reduced Hemoglobin-Ludivina e Draw 44.1(H) 0.0 - 5.0 % 10/25/2024 10:08 PM EDT [facility] Venous, Line Draw 10/25/2024 10:00 PM EDT 10/25/2024 10:04 PM EDT us Leandra Og MD LAB BLOOD ORDERABLES F inal Result [facility] [address] [place] [address], [facility] * (ABNORMAL) POC Glucose Monitoring Device (10/25/2024 9:56 PM EDT) POC Glucose Monitoring Device 103(H) 70 - 100 mg/dL 10/25/2024 9:58 PM EDT [facility] Blood 10/25/2024 9:56 PM EDT 10/25/2024 9:57 PM EDT Semaj Mcnair III, MD POINT OF CARE TEST ORDERABLES Final Result Performing Organization Address [facility] Co de Phone Number [facility] [address] * ECG 12 lead (MUSE) (10/25/2024 9:34 PM EDT) 10/25/2024 9:34 PM EDT Narrative MUSE - 10/27/2024 10:08 AM EDT Ventricular Rate: 97 BPM Atrial Rate: 86 BPM QRS Duration: 106 ms QT: 532 ms QTc: 675 ms P [place]: 38 degrees R [place]: -29 degrees T [place]: 32 degrees Diagnosis Line: Critical Test Result: Long QTc , AV Block ^ SINUS RHYTHM WITH PREMATURE VENTRICULAR COMPLEXES ^ PROLONGED QT ^ NONSPECIFIC ST AND T WAVE CHANGES ^ ABNORMAL ECG ^ ^ Confirmed by MD HA, [facility] ([facility]) on 10/27/2024 10:08:26 AM Leandra Og MD ECG ORDERABLES Final Result Performing Organization Address [facility] Co de Phone [...] log 10 IU/mL 10/27/2024 11:03 AM EDT [facility] Comment:HCV RNA not detected . Plasma 10/25/2024 8:18 PM EDT 10/25/2024 10:27 PM EDT us Leandra Og MD LAB BLOOD ORDERABLES F inal Result [facility] [address] [place], [place] [address] * Urinalysis w/Rfl to Microscopic (10/25/2024 8:18 PM EDT) Color, UA Yellow Yellow,Straw 10/25/2024 10:38 PM EDT [facility] Clarity, UA Clear Clear 10/25/2024 10:38 PM EDT [facility] Specific Colbert, UA 1.010 1.005 - 1.035 10/25/2024 10:38 PM EDT [facility] pH, UA 6.0 5.0 - 8.0 10/25/2024 10:38 PM EDT [facility] Protein, UA Negative Negative mg/dL 10/25/2024 10:38 PM EDT [facility] Glucose, UA Negative Negative mg/dL 10/25/2024 10:38 PM EDT [facility] Ketones, UA Negative Negative mg/dL 10/25/2024 10:38 PM EDT [facility] Bilirubin, UA Negative Negative 10/25/2024 10:38 PM EDT [facility] Blood, UA Negative Negative 10/25/2024 10:38 PM EDT [facility] Nitrite, UA Negative Negative 10/25/2024 10:38 PM EDT [facility] Urobilinogen, UA <2.0 0.2 - 1.9 mg/dL 10/25/2024 10:38 PM EDT [facility] Leukocyte Esterase, UA Negative Negative 10/25/2024 10:38 PM EDT [facility] Urine 10/25/2024 8:18 PM EDT 10/25/2024 10:35 PM EDT Narrative [facility] - 10/25/2024 10:38 PM EDT Microscopic testing is not performed when the dipstick is negative for blood, leukocyte, protein and nitrite. Leandra Og MD URINE ORDERABLES Final Result Performing Organization Address City/[facility]/ZIP Co de Phone Number [facility] [address] [place] [address] * Toxoplasma gondii antibody, IgG (10/25/2024 8:18 PM EDT) Pathologist [facility] Toxoplasma Gondii IgG <3.0 0.0 - 7.1 IU/mL 10/27/2024 7:55 AM EDT [facility] Comment: Negative <7.2 Equivocal 7.2 - 8.7 Positive >8.7 Serum 10/25/2024 8:18 PM EDT 10/27/2024 8:06 AM EDT Narrative [facility] - 10/27/2024 8:06 AM EDT PERFORMED AT: [facility] [id number] MULTI CARE TECHNICIAN: Bassam Khalil, PhD PHONE: [phone] Leandra Og MD LAB BLOOD ORDERABLES F inal Result Performing Organization Address [facility] Co de Phone Number [facility] [address] [place] [address]. [address] * Antibody Screen (10/25/2024 7:46 PM EDT) Pathologist [facility] Antibody Screen Negative 10/25/2024 10:41 PM EDT [facility] Blood 10/25/2024 7:46 PM EDT 10/25/2024 9:54 PM EDT Narrative [facility] - 10/25/2024 10:44 PM EDT Testing performed by [facility] Transfusion Service Ben Blake MD BLOOD BANK TEST ORDERABLES Fi nal Result [facility] [address] * ABO/Rh (10/25/2024 7:46 PM EDT) ABO Grouping O 10/25/2024 10:23 PM EDT [facility] Rh Type Positive 10/25/2024 10:23 PM EDT [facility] Blood 10/25/2024 7:46 PM EDT 10/25/2024 9:54 PM EDT us Ben Blake MD BLOOD BANK TEST ORDERABLES Fi nal Result [facility] [address] [place] [address], [facility] * (ABNORMAL) TEG-Standard Global Hemostasis (Rapid TEG with Heparin Effect, Contains a Baseline TEG) (10/25/2024 7:46 PM EDT) Citrated Kaolin Reaction Time (TEGHEPARINASE) 8.4 4.6 - 9.1 minutes 10/25/2024 10:49 PM EDT [facility] Citrated Rapid Teg Maximum Amplitude (TEGHEPARINASE) <40.0(L) 52.0 - 70.0 mm 10/25/2024 10:49 PM EDT [facility] Citrated Functional Fibrinogen Maximum Amplitude (TEGHEPARINASE) 6.7(L) 15.0 - 32.0 mm 10/25/2024 10:49 PM EDT [facility] Citrated Kaolin W/Heparinase Reaction Time (TEGHEPARINASE) 8.1 4.3 - 8.3 minutes 10/25/2024 10:49 PM EDT [facility] Citrated Kaolin K-Time (TEGHEPARINASE) 2.5(A) 0.8 - 2.1 minutes 10/25/2024 10:49 PM EDT [facility] Citrated Kaolin Angle (TEGHEPARINASE) 65.7(A) 63.0 - 78.0 degrees 10/25/2024 10:49 PM EDT [facility] Citrated Kaolin Maximum Amplitude (TEGHEPARINASE) <40.0(L) 52.0 - 69.0 mm 10/25/2024 10:49 PM EDT [facility] Citrated Functional Fibrinogen- Fibrinogen Level (TEGHEPARINASE) 159.5(L) 278.0 - 581.0 mg/dL 10/25/2024 10:49 PM EDT [facility] Whole Blood (Citrate) 10/25/2024 7:46 PM EDT 10/25/2024 10:15 PM EDT us Ben Blake MD LAB BLOOD ORDERABLES Final Re sult [facility] [address] [place] [address], [facility] documented in this encounter Visit Diagnoses Diagnosis Acute kidney injury superimposed on CKD ([facility])- Primary Prophylactic antibiotic Encounter for long-term (current) use of antibiotics Prolonged QT interval Nonspecific abnormal electrocardiogram (ECG) (EKG) Immunosuppression ([facility]) Abdominal pain, unspecified abdominal location Acute kidney injury superimposed on CKD ([facility]) documented in this encounter Administered Medications Inactive [...] Flannery, ЮЛИЯ) 1142 (Given - Provider: Paulette Flnanery, ЮЛИЯ) furosemide (LASIX) injection 40 mg (COMPLETED) [...] documented as of this encounter Care Teams [employer] Driver Relationship Specialty Start Date End Date Enedina Mcguire NP [address] [place], [place] [id number] PCP - General Internal Medicine 10/05/24 documented as of this encounter
--- OUTSIDE RECORDS SUMMARY | 2024-10-27 02:34 | XMS_ITS | Encounter Summary ---
Author Organization [facility] Address [facility] [place] [address] Care Team Providers Care Spinning Supervisor Name Role Phone Enedina Mcguire NP Primary Care Provider [phone] Source Comments This information has been disclosed [...] release of HIV test results or diagnoses. [id number] Reason for Visit * Auth/Cert (Routine) Specialty Diagnoses / Procedures Referred By Shane t Referred To Contact Surgical Intensive Care Diagnoses Liver transplant recipient (CMS-HCC) cirrhosis and CKD Procedures LIVER-KIDNEY TRANSPLANT [facility] SICU [address] [place] [address] Phone: tel: Referral ID Status Reason Start Date Expiration Date Visits Re quested Visits Authorized [id number] 1 1 Encounter Details Date Type Department Care Team (Late st Contact Info) Description 10/27/2024 2:34 AM EDT Anesthesia Event [facility] PERIOP [address] [place] [address] Rocky Manning MD [address] [phone] Con Gramajo MD [address] [place] [address] Anesthesia Record Procedure Summary Procedure Name Responsible [...] sodium chloride 0.9% 1 00 mL IVPB (Kdnx0Yrs) 1 g cefTRIAXone (ROCEPHIN) 2 g in sodium chl oride 0.9 % 100 mL Geao4Ltq 2 g electrolyte-r (pH 7.4)(NORMOSOL-R pH 7.4 [...] Sounds Confirmed 10/26/24 0622 by Martha Phillip, HAM STRINGER 10/27/24 1310 by Chinedu Almeida, HAM STRINGER Drain 10/27/24; 0636; Bulb ; Abdomen; Inferior, [...] the past 12 months has th e [employer], gas, oil, or water [employer] threatened to shut off services in your [...] living in a retirement (including now)? No 10/29/2024 Yearly Questionnaire Answer [...] Blake MD - 10/26/2024 8:01 PM EDT [facility] DEPARTMENT OF ANESTHESIOLOGY PRE-PROCEDURAL EVALUATION Julien Anderson is a 39 y.o. year old male presenting for: Procedure(s): TRANSPLANT KIDNEY with bile duct reconstruction Surgeon: Harvey Domínguez III, MD Chief Complaint cirrhosis and CKD; Liver transplant recipient ([facility]-H[facility]) EtOH cirrhosis decompensated by esophageal varices, hepatic [...] dysrhythmias, angina, orthopnea. ECG reviewed. ROS comment: [facility] 10/14/24: IMPRESSIONS: - Patent coronary arteries without [...] is no recent study available for direct vytc-ve-fyrp comparison. Stress echo 10/09/24: - Left ventricle: [...] at baseline or with provocation, shows no khqhw-wj-ctse atrial level shunt. - Pulmonary arteries: Systolic [...] No Physical Activity: Unknown (07/14/2024) Received from [facility] Exercise Vital Sign Days of Exercise per Week: Patient unable to answer Minutes of Exercise per Session: Not on file Stress: Patient Unable To Answer (07/14/2024) Received from [facility] [place] of Occupational Health - Occupational Stress Questionnaire Feeling of Stress : Patient unable to answer Social Connections: Patient Unable To Answer (07/14/2024) Received from [facility] Social Connection and Isolation Panel [NHANES] [...] 9:00 PM naloxone (NARCAN) 4 mg/actuation [place] Apply 1 spray in one nostril [...] Blood products not discussed. Plan discussed with ELECTRONIC PAGINATION SYSTEM OPERATOR and attending. no trial extubation [1] [...] Date 10/26/24699 - 10/27/2465810/27/24699 - 10/28/2459 Shift 7458-2442 5078-3221 4427-0009 24 Hour Total 0036-1570 5534-4367 9377-8985 24 Hour Total INTAKE I.V.(mL/kg) 1450.8(11.8) 999.1(8.2) [...] 1 x 1 x 3 x Albumin 5504 371 3144 Volume (Transfuse Cryoprecipitate Transfusion Rate: Per dept [...] in sodium chloride 0.9 % 100 mL Cmji8Hhx) 20 20 Volume (mL) (methylPREDNISolone sodium succinate (SOLU-medrol) 250 mg in sodium chloride 0.9 % 100 mL IVPB) 100 100 Volume (mL) (AMPicillin 1 g in sodium chloride 0.9% 100 mL IVPB (Luxx9Sov)) 200.2 100 120 420.1 Volume (mL) (mycophenolate [...] 99.3 99.3 Shift Total(mL/kg) 3124.1(25.5) 4253.7(34.7) 6907(56.4) 09501.8(116.6) OUTPUT Urine(mL/kg/hr) 955(1) 505(0.5) 690(0.7) 2150(0.7) 360 360 Urine 315 315 360 360 Output (mL) (IUC (Berkowitz) Triple-lumen (3-Way) 18 Fr.) 955 700 725 8857 Emesis/NG output 250 600 850 Drainage Output (mL) (NG/OG Tube Orogastric) 250 600 850 Drains 1700 5913 496 4942 Output (mL) (Drain Bilary Abdomen Inferior;Right) 100 150 250 Output (mL) ([REMOVED] Drain 1 Abdomen Right;Superior) 800 755 023 0330 Output (mL) (Drain 2 Left;Superior) 800 017 29 6516 Blood 300 300 Est Blood Loss 300 [...] in sodium chloride 0.9% 100 mL IVPB (Xoqb4Xil) 1 g, Intravenous, at 200 mL/hr, Every 6 hours scheduled (4 times per day), First dose on Sun10/26/24 at 0630, For 2 days, Dosage may need to be adjusted for renal dysfunction. Full dose is 1g IV q6h Use Ytye4Htu Adapter - Mix Thoroughly Before Administration New [...] Once underlying shock sufficiently improved, defined as yxv-tgcjgsfxifi-MH-presso r requirement ? 0.2 mcg/kg/min (norepinephrine equivalent) [...] in sodium chloride 0.9 % 100 mL Vlmy7Dyr Intravenous, Administer over 30 Minutes, Continuous - [...] paralyzed: Do not titrate - follow policy [id number]. Start infusion if unable to maintain goal [...] documented as of this encounter Care Teams Spinning Supervisor Relationship Specialty Start Date End Date Enedina Mcguire NP [address] [place] [address] PCP - General Internal Medicine 10/05/24 documented as of this encounter
--- OUTSIDE RECORDS SUMMARY | 2024-11-04 08:40 | XMS_ITS | Encounter Summary ---
Author Organization [facility] Address [address] [place] [address] Care Team Providers Care Cattle Care Worker Name Role Phone Enedina Mcguire NP Primary Care Provider + [phone] Maureen Pantoja RN Unavailable Unavail able Source [...] release of HIV test results or diagnoses. [id number] Reason for Visit * Reason Comments Liver Transplant Follow-up Encounter Details Date Type Department Care Team (Late st Contact Info) Description 11/04/2024 8:40 AM EDT Office Visit [facility] Liver Transplant at [place] [address] [facility] [address] [place] [address] Cosmo Pacheco MD [address] [place] [address] [address] [place] [address] Liver transplant recipient (CMS-HCC) (Primary [...] the past 12 months has th e [employer], [employer], oil, or water company threatened to shut [...] in the past 12 m [facility], were you homeless or living [...] Nutrition: patient continues close f/u w/ transplant superintendent schools. - Bone health: Vit D level to be drawn ~POD#90. - Labs: Labs (CBC w/ diff, renal panel, liver panel, tacro level) twice a week. Lipid panel, [id number] Vit D level to be drawn at [...] management for this patient. Cosmo Pacheco MD General Partner of Transplant Surgery [phone] (m) [1] Allergies Allergen Reactions Adhesive Itching [...] encounter Visit Diagnoses Diagnosis Liver transplant recipient ([facility]-HCC)- Primary Alcoholic cirrhosis of liver with ascites ([facility]-HCC) Kidney transplant recipient Acute kidney injury superimposed on CKD ([facility]-HCC) CKD (chronic kidney disease) stage 4, GFR 15-29 ml/min ([facility]-HCC) Chronic kidney disease, Stage IV (severe) Immunosuppressive management encounter following liver transplant ([facility]) Abdominal pain, unspecified abdominal location documented in this encounter Additional Health Concerns Infection Onset Date Last Indicated Resolved Time 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, VRE- urine 10/31/2024 11/04/2024 Assessment Noted Time PHQ-9 Depression Total Score: 17 025 11:00 AM EDT documented as of this encounter Care Teams Cattle Care Worker Relationship Specialty Start Date End Date Enedina Mcguire NP [address] [place] [address] PCP - General Internal Medicine 10/05/24 Maureen Pantoja, ЮЛИЯ Txp Post Coordinator Transplant Hepatology 10/28/24 documented as of this encounter
--- OUTSIDE RECORDS SUMMARY | 2024-11-04 10:10 | XMS_ITS | Encounter Summary ---
Author Organization [facility] Address [facility] [place] [address] Care Team Providers Care Crop Puller Name Role Phone Enedina Mcguire NP Primary Care Provider + [phone] Maureen Pantoja RN Unavailable Unavail able Source [...] release of HIV test results or diagnoses. [id number] Reason for Visit * Reason Comments Kidney Transplant Follow-up Encounter Details Date Type Department Care Team (Late st Contact Info) Description 11/04/2024 10:10 AM EDT Office Visit [facility] Liver Transplant at [facility] [address] [facility] [address] [place] [address] Leisa Juarez MD [facility] 2nd [place] [address] Kidney transplant recipient (Primary Dx); [...] the past 12 months has th e [employer], [employer], oil, or water [employer] threatened to shut off services in your [...] packing; Surgeon: Harvey Domínguez III, MD; Location: [facility]; Service: Transplant; Laterality: N/A; Family History: No [...] Resource Strain: Low Risk (07/09/2024) Received from [facility] Overall Financial Resource Strain (CARDIA) Difficulty [...] Received from [facility] [place] [facility] - Occupational Stress Questionnaire [...] = 12 units lancets (ACCU-CHEK SOFTCLIX LANCETS) [facility] Use to test blood sugar up to [...] times a day. naloxone (NARCAN) 4 mg/actuation [place] Apply 1 spray in one nostril if [...] Results Component Value Date PTH 36.0 10/25/2024 XYRO75F 7.1 (L) 10/08/2024 Hemoglobin A1C: Lab Results [...] - 2.5 mg/dL 11/25/2024 10:20 AM EDT [facility] Plasma 11/25/2024 8:42 AM EDT 11/25/2024 9:47 AM EDT Yareli Zaragoza [facility] BLOOD ORDERABLES Denisse l Result Performing Organization Address City/[facility]/ZIP Co de Phone Number [facility] [address] * (ABNORMAL) Magnesium (11/11/2024 9:13 AM EDT) Magnesium 1.2(L) 1.5 - 2.5 mg/dL 11/11/2024 10:51 AM EDT [facility] Plasma 11/11/2024 9:13 AM EDT 11/11/2024 10:19 AM EDT Yareli Zaragoza [facility] BLOOD ORDERABLES Denisse l Result [facility] [address] * (ABNORMAL) Post Kidney Transplant Urine Culture (11/11/2024 9:13 AM EDT) Culture Result Enterococcus faecium(A) [facility] Comment: <1,000 cfu/mL Identified by MALDI-TOF MS No Further Workup Midstream Urine URINE SPECIMEN / Unknown 11/11/2024 9:13 AM EDT 11/11/2024 10:17 AM EDT Yareli Zaragoza CNP MICROBIOLOGY - GENERAL OR DERABLES Final Result Performing Organization Address [facility] Co de Phone Number [facility] [address] [facility]. [address] * Protein / creatinine ratio, urine (11/11/2024 9:13 AM EDT) Creatinine, Urine 71.40 mg/dL 11/11/2024 10:38 AM EDT [facility] Comment:Reference range not established for this test. Total Protein, Ur 28 mg/dL 11/11/2024 10:38 AM EDT [facility] Comment:Reference range not established for this test. Prot/Creat Ratio, Ur 0.39 ratio 11/11/2024 10:38 AM EDT [facility] Urine 11/11/2024 9:13 AM EDT 11/11/2024 10:12 AM EDT us Yareli Zaraogza CNP URINE ORDERABLES Final Re sult Performing Organization Address [facility]/ZIP Co de Phone Number [facility] [address] [facility]. [address] * (ABNORMAL) Urinalysis w/Rfl to Microscopic (11/11/2024 9:13 AM EDT) Color, UA Straw Yellow,Straw 11/11/2024 10:36 AM EDT [facility] Clarity, UA Clear Clear 11/11/2024 10:36 AM EDT [facility] Specific [place], UA 1.015 1.005 - 1.035 11/11/2024 10:36 AM EDT [facility] pH, UA 6.0 5.0 - 8.0 11/11/2024 10:36 AM EDT [facility] Protein, UA Negative Negative mg/dL 11/11/2024 10:36 AM EDT [facility] Glucose, UA Negative Negative mg/dL 11/11/2024 10:36 AM EDT [facility] Ketones, UA Negative Negative mg/dL 11/11/2024 10:36 AM EDT [facility] Bilirubin, UA Negative Negative 11/11/2024 10:36 AM EDT [facility] Blood, UA Small(A) Negative 11/11/2024 10:36 AM EDT [facility] Nitrite, UA Negative Negative 11/11/2024 10:36 AM EDT [facility] Urobilinogen, UA <2.0 0.2 - 1.9 mg/dL 11/11/2024 10:36 AM EDT [facility] Leukocyte Esterase, UA Negative Negative 11/11/2024 10:36 AM EDT [facility] RBC, UA 13(H) 0 - 3 /HPF 11/11/2024 10:36 AM EDT [facility] WBC, UA 4 0 - 5 /HPF 11/11/2024 10:36 AM EDT [facility] Urine 11/11/2024 9:13 AM EDT 11/11/2024 10:10 AM EDT Yareli Zaragoza MUNITIONS WORKER URINE ORDERABLES Final Re sult Performing Organization Address [facility]/ZIP Co de Phone Number [facility] [address] * (ABNORMAL) Magnesium (11/04/2024 8:46 AM EDT) Magnesium 1.0(L) 1.5 - 2.5 mg/dL 11/04/2024 10:06 AM EDT [facility] Plasma 11/04/2024 8:46 AM EDT 11/04/2024 9:32 AM EDT Yareli Zaragoza [facility] BLOOD ORDERABLES Denisse l Result Performing Organization Address [facility]/ZIP Co de Phone Number [facility] [address] * (ABNORMAL) Post Kidney Transplant Urine Culture (11/04/2024 8:46 AM EDT) Culture Result Enterococcus faecium, Vancomycin Resistant(A) [facility] Comment: 1,000- <10,000 cfu/mL Identified [...] Final Result Performing Organization Address [facility] Co de Phone Number [facility] [address] [facility]. [address] * Protein / creatinine ratio, urine (11/04/2024 8:46 AM EDT) Creatinine, Urine 37.30 mg/dL 11/04/2024 2:55 PM EDT [facility] Comment:Reference range not established for this test. Total Protein, Ur 42 mg/dL 11/04/2024 2:55 PM EDT [facility] Comment:Reference range not established for this test. Prot/Creat Ratio, Ur 1.13 ratio 11/04/2024 2:55 PM EDT [facility] Urine 11/04/2024 8:46 AM EDT 11/04/2024 9:32 AM EDT Yareli Zaragoza CNP URINE ORDERABLES Final Re sult Performing Organization Address [facility]/ZIP Co de Phone Number [facility] [address] [facility]. [address] * (ABNORMAL) Urinalysis w/Rfl to Microscopic (11/04/2024 8:46 AM EDT) Color, UA Straw Yellow,Straw 11/04/2024 10:07 AM EDT [facility] Clarity, UA Clear Clear 11/04/2024 10:07 AM EDT [facility] Specific [place], UA 1.012 1.005 - 1.035 11/04/2024 10:07 AM EDT [facility] pH, UA 6.5 5.0 - 8.0 11/04/2024 10:07 AM EDT [facility] Protein, UA Trace(A) Negative mg/dL 11/04/2024 10:07 AM EDT [facility] Glucose, UA Negative Negative mg/dL 11/04/2024 10:07 AM EDT [facility] Ketones, UA Negative Negative mg/dL 11/04/2024 10:07 AM EDT [facility] Bilirubin, UA Negative Negative 11/04/2024 10:07 AM EDT [facility] Blood, UA Large(A) Negative 11/04/2024 10:07 AM EDT [facility] Nitrite, UA Negative Negative 11/04/2024 10:07 AM EDT [facility] Urobilinogen, UA <2.0 0.2 - 1.9 mg/dL 11/04/2024 10:07 AM EDT [facility] Leukocyte Esterase, UA Negative Negative 11/04/2024 10:07 AM EDT [facility] RBC, UA >100(H) 0 - 3 /HPF 11/04/2024 10:07 AM EDT [facility] WBC, UA 2 0 - 5 /HPF 11/04/2024 10:07 AM EDT [facility] Bacteria, UA Rare(A) None Seen /HPF 11/04/2024 10:07 AM EDT [facility] Hyaline Casts, UA 3(H) 0 - 2 /LPF 11/04/2024 10:07 AM T [facility] Urine 11/04/2024 8:46 AM EDT 11/04/2024 9:33 AM EDT Yareli Zaragoza MUNITIONS WORKER URINE ORDERABLES Final Re sult [facility] [address] [place] [address], [facility] documented in this encounter Visit [...] documented as of this encounter Care Teams Crop Puller Relationship Specialty Start Date End Date Enedina Mcguire NP [address] [place] [address] PCP - General Internal Medicine 10/05/24 Maureen Pantoja, ЮЛИЯ Txp Post Coordinator Transplant Hepatology 10/28/24 documented as of this encounter
--- OUTSIDE RECORDS SUMMARY | 2024-11-11 08:50 | XMS_ITS | Encounter Summary ---
Author Organization [facility] Address [facility] [place] [address] Care Team Providers Care Scrap Sawyer Name Role Phone Enedina Mcguire NP Primary Care Provider + [phone] Maureen Pantoja RN Unavailable Unavail able Source [...] release of HIV test results or diagnoses. [id number] Reason for Visit * Reason Comments Labs Only Encounter Details Date Type Department Care Team (Late st Contact Info) Description 11/11/2024 8:50 AM EDT Specimen [facility] Outreach Lab [address] [place] [address] Harvey Domínguez III, MD [facility] [address] [place] [address] Liver replaced by transplant ([facility]); Immunosuppressive management encounter following liver transplant ([facility]); Kidney transplant recipient Social History [...] the past 12 months has th e [employer], [employer], oil, or water company threatened to shut [...] - 2.5 mg/dL 11/11/2024 10:51 AM EDT [facility] Plasma 11/11/2024 9:13 AM EDT 11/11/2024 10:19 AM EDT Caron Santos CNP LAB BLOOD ORDERABLES Denisse l Result Performing Organization Address [facility] Co de Phone Number [facility] [address] [place] [address]. [address] * (ABNORMAL) Post Kidney Transplant Urine Culture (11/11/2024 9:13 AM EDT) Culture Result Enterococcus faecium(A) [facility] Comment: <1,000 cfu/mL Identified by MALDI-TOF MS No Further Workup Midstream Urine URINE SPECIMEN / Unknown 11/11/2024 9:13 AM EDT 11/11/2024 10:17 AM EDT Caron Santos IMMIGRATION INSPECTOR MICROBIOLOGY - GENERAL OR DERABLES Final Result Performing Organization Address [facility] de Phone Number [facility] [address] [place] [address]. [address] * Protein / creatinine ratio, urine (11/11/2024 9:13 AM EDT) Creatinine, Urine 71.40 mg/dL 11/11/2024 10:38 AM EDT [facility] Comment:Reference range not established for this test. Total Protein, Ur 28 mg/dL 11/11/2024 10:38 AM EDT [facility] Comment:Reference range not established for this test. Prot/Creat Ratio, Ur 0.39 ratio 11/11/2024 10:38 AM EDT [facility] Urine 11/11/2024 9:13 AM EDT 11/11/2024 10:12 AM EDT Caron Santos CNP URINE ORDERABLES Final Re sult Performing Organization Address City/[facility]/ZIP Co de Phone Number [facility] [address] * (ABNORMAL) Urinalysis w/Rfl to Microscopic (11/11/2024 9:13 AM EDT) Color, UA Straw Yellow,Straw 11/11/2024 10:36 AM EDT [facility] Clarity, UA Clear Clear 11/11/2024 10:36 AM EDT [facility] Specific [place], UA 1.015 1.005 - 1.035 11/11/2024 10:36 AM EDT [facility] pH, UA 6.0 5.0 - 8.0 11/11/2024 10:36 AM EDT [facility] Protein, UA Negative Negative mg/dL 11/11/2024 10:36 AM EDT [facility] Glucose, UA Negative Negative mg/dL 11/11/2024 10:36 AM EDT [facility] Ketones, UA Negative Negative mg/dL 11/11/2024 10:36 AM EDT [facility] Bilirubin, UA Negative Negative 11/11/2024 10:36 AM EDT [facility] Blood, UA Small(A) Negative 11/11/2024 10:36 AM EDT [facility] Nitrite, UA Negative Negative 11/11/2024 10:36 AM EDT [facility] Urobilinogen, UA <2.0 0.2 - 1.9 mg/dL 11/11/2024 10:36 AM EDT [facility] Leukocyte Esterase, UA Negative Negative 11/11/2024 10:36 AM EDT [facility] RBC, UA 13(H) 0 - 3 /HPF 11/11/2024 10:36 AM EDT [facility] WBC, UA 4 0 - 5 /HPF 11/11/2024 10:36 AM EDT [facility] Urine 11/11/2024 9:13 AM EDT 11/11/2024 10:10 AM EDT us Caron Santos IMMIGRATION INSPECTOR URINE ORDERABLES Final Re sult [facility] [address] * (ABNORMAL) Differential (11/11/2024 9:13 AM EDT) Neutrophils Relative 69.3 40.0 - 80.0 % 11/11/2024 10:31 AM EDT [facility] Lymphocytes Relative 17.6 15.0 - 45.0 % 11/11/2024 10:31 AM EDT [facility] Monocytes Relative 8.5 0.0 - 12.0 % 11/11/2024 10:31 AM EDT [facility] Eosinophils Relative 2.0 0.0 - 8.0 % 11/11/2024 10:31 AM EDT [facility] Basophils Relative 2.6(H) 0.0 - 1.0 % 11/11/2024 10:31 AM EDT [facility] nRBC 0 0 - 0 /100 WBC 11/11/2024 10:31 AM EDT [facility] Neutrophils Absolute 4,920 1,520 - 8,640 /uL 11/11/2024 10:31 AM EDT [facility] Lymphocytes Absolute 1,250 570 - 4,860 /uL 11/11/2024 10:31 AM EDT [facility] Monocytes Absolute 604 0 - 1,296 /uL 11/11/2024 10:31 AM EDT [facility] Eosinophils Absolute 142 0 - 864 /uL 11/11/2024 10:31 AM EDT [facility] Basophils Absolute 185(H) 0 - 108 /uL 11/11/2024 10:31 AM EDT [facility] Whole Blood 11/11/2024 9:13 AM EDT 11/11/2024 10:19 AM EDT Narrative [facility] - 11/11/2024 10:31 AM EDT Standing orders to be drawn: Every Sunday and before 9am and prior to patient taking morning medications. Liver Transplant Fax results to [phone] Call Critical results to [phone] us Harvey Domínguez III, MD LAB BLOOD ORDERABLE S Final Result [facility] [address] [place] [facility], [facility] * (ABNORMAL) CBC (11/11/2024 9:13 AM EDT) WBC 7.1 3.8 - 10.8 10E3/uL 11/11/2024 10:31 AM EDT [facility] RBC 3.42(L) 4.20 - 5.80 10E6/uL 11/11/2024 10:31 AM EDT [facility] Hemoglobin 10.6(L) 13.2 - 17.1 g/dL 11/11/2024 10:31 AM EDT [facility] Hematocrit 31.3(L) 38.5 - 50.0 % 11/11/2024 10:31 AM EDT [facility] MCV 91.5 80.0 - 100.0 fL 11/11/2024 10:31 AM EDT [facility] MCH 31.0 27.0 - 33.0 pg 11/11/2024 10:31 AM EDT [facility] MCHC 33.8 32.0 - 36.0 g/dL 11/11/2024 10:31 AM EDT [facility] RDW 20.5(H) 11.0 - 15.0 % 11/11/2024 10:31 AM EDT [facility] Platelets 308 140 - 400 10E3/uL 11/11/2024 10:31 AM EDT [facility] MPV 6.1(L) 7.5 - 11.5 fL 11/11/2024 10:31 AM EDT [facility] Whole Blood 11/11/2024 9:13 AM EDT 11/11/2024 10:19 AM EDT Narrative [facility] - 11/11/2024 10:31 AM EDT Standing orders to be drawn: Every Sunday and before 9am and prior to patient taking morning medications. Liver Transplant Fax results to [phone] Call Critical results to [phone] us Harvey Domínguez III, MD LAB BLOOD ORDERABLE S Final Result [facility] [address] [place] [address], [facility] * (ABNORMAL) Renal Function Panel w/EGFR (11/11/2024 9:13 AM EDT) Sodium 141 133 - 146 mmol/L 11/11/2024 10:51 AM EDT [facility] Potassium 4.6 3.5 - 5.3 mmol/L 11/11/2024 10:51 AM EDT [facility] Chloride 108 98 - 110 mmol/L 11/11/2024 10:51 AM EDT [facility] CO2 24 21 - 33 mmol/L 11/11/2024 10:51 AM EDT [facility] Anion Gap 9 3 - 16 mmol/L 11/11/2024 10:51 AM EDT [facility] BUN 27(H) 7 - 25 mg/dL 11/11/2024 10:51 AM EDT [facility] Creatinine 1.14 0.60 - 1.30 mg/dL 11/11/2024 10:51 AM EDT [facility] Glucose 97 70 - 100 mg/dL 11/11/2024 10:51 AM EDT [facility] Calcium 8.6 8.6 - 10.3 mg/dL 11/11/2024 10:51 AM EDT [facility] Phosphorus 4.4 2.1 - 4.7 mg/dL 11/11/2024 10:51 AM EDT [facility] Albumin 3.8 3.5 - 5.7 g/dL 11/11/2024 10:51 AM EDT [facility] Osmolality, Calculated 297 278 - 305 mOsm/kg 11/11/2024 10:51 AM EDT [facility] EGFR 83 11/11/2024 10:51 AM EDT [facility] [...] morning medications. Liver Transplant Fax results to [phone] Call Critical results to [phone] DO NOT REPLACE RENAL PANEL or HEPATIC FUNCTION PANEL w/ CMP, BMP or HEPATIC PROFILE us Harvey Domínguez III, MD LAB BLOOD ORDERABLE S Final Result [facility] [address] [place] [address], [facility] * (ABNORMAL) Hepatic Function Panel (11/11/2024 9:13 AM EDT) Total Bilirubin 1.0 0.0 - 1.5 mg/dL 11/11/2024 10:51 AM EDT [facility] Bilirubin, Direct 0.39 0.00 - 0.40 mg/dL 11/11/2024 10:51 AM EDT [facility] AST 15 13 - 39 U/L 11/11/2024 10:51 AM EDT [facility] ALT 26 7 - 52 U/L 11/11/2024 10:51 AM EDT [facility] Alkaline Phosphatase 125 36 - 125 U/L 11/11/2024 10:51 AM EDT [facility] Total Protein 5.9(L) 6.4 - 8.9 g/dL 11/11/2024 10:51 AM EDT [facility] Albumin 3.8 3.5 - 5.7 g/dL 11/11/2024 10:51 AM EDT [facility] Bilirubin, Indirect 0.61 0.00 - 1.10 mg/dL 11/11/2024 10:51 AM EDT [facility] Plasma 11/11/2024 9:13 AM EDT 11/11/2024 10:19 AM EDT Narrative [facility] - 11/11/2024 10:51 AM EDT Standing orders to be drawn: Every Sunday and before 9am and prior to patient taking morning medications. Liver Transplant Fax results to [phone] Call Critical results to [phone] DO NOT REPLACE RENAL PANEL or HEPATIC FUNCTION PANEL w/ CMP, BMP or HEPATIC PROFILE Harvey Domínguez III, MD LAB BLOOD ORDERABLE S Final Result Performing Organization Address City/[facility] Co de Phone Number [facility] [address] [facility]. [address] * Tacrolimus level (11/11/2024 9:13 AM EDT) [facility] Tacrolimus (LC-MS) 10.4 3.0 - 15.0 ng/mL 11/11/2024 1:22 PM EDT [facility] Comment:Performed via liquid chromatography tandem mass spectrometry. Detection limit: 1 ng/mL. Individual target concentrations may vary due to target organ and time after transplant. This test has been developed and its performance characteristics determined by [facility] [...] AM EDT 11/11/2024 10:19 AM EDT Narrative [facility] - 11/11/2024 1:22 PM EDT Standing orders to be drawn: Every Sunday and before 9am and prior to patient taking morning medications. Liver Transplant Fax results to [phone] Call Critical results to [phone] Harvey Domínguez III, MD LAB BLOOD ORDERABLE S Final Result Performing Organization Address City/[facility]/ZIP Co de Phone Number [facility] [address] documented in this encounter Visit Diagnoses [...] documented as of this encounter Care Teams Scrap Sawyer Relationship Specialty Start Date End Date Enedina Mcguire NP [address] [place] [address] PCP - General Internal Medicine 10/05/24 Maureen Pantoja, RN Txp Post Coordinator Transplant Hepatology 10/28/24 documented as of this encounter
--- OUTSIDE RECORDS SUMMARY | 2024-11-11 09:30 | XMS_ITS | Encounter Summary ---
Author Organization [facility] Address [address] [place] [address] Care Team Providers Care Major League Baseball Player Name Role Phone Enedina Mcguire NP Primary Care Provider + [phone] Maureen Pantoja RN Unavailable Unavail able Source [...] release of HIV test results or diagnoses. [id number] Health Encounter Details Date Type Department Care Team (Late st Contact Info) Description 11/11/2024 9:30 AM EDT Office Visit [facility] Psychiatry Transplant at [facility] [address] [facility] [address] [place] [address] Craig Warren PsyD [address] [facility] [address] [place] [address] PTSD (post-traumatic stress disorder) (Primary [...] In the past 12 months has th [employer], [employer], or [employer] threatened to shut off services in [...] any time in the past 12 m [facility], were you homeless or living in [...] alcohol and CKD IIIb/IV. Seen by this junior copywriter for pre-surgical evaluation. PMH includes PTSD and [...] documented as of this encounter Care Teams Major League Baseball Player Relationship Specialty Start Date End Date Enedina Mcguire NP [address] [place] [address] PCP - General Internal Medicine 10/05/24 Maureen Pantoja, RN Txp Post Coordinator Transplant Hepatology 10/28/24 documented as of this encounter
--- OUTSIDE RECORDS SUMMARY | 2024-11-11 10:00 | XMS_ITS | Encounter Summary ---
Author Organization [facility] Address [address] [place] [address] Care Team Providers Care Metal Fitters And Machinists Name Role Phone Enedina Mcguire NP Primary Care Provider + [phone] Maureen Pantoja RN Unavailable Unavail able Source [...] release of HIV test results or diagnoses. [id number] Reason for Visit * Reason Comments Liver Transplant Follow-up Encounter Details Date Type Department Care Team (Late st Contact Info) Description 11/11/2024 10:00 AM EDT Office Visit [facility] Liver Transplant at [place] [address] [place] [address] Cosmo Pacheco MD [address] [place], [place] [address] [place] [address] Harvey Domínguez III, MD [address] [place] [address] 3200 [place] [address] Encounter for therapeutic drug monitoring [...] the past 12 months has th e [employer], oil, or water company threatened to shut [...] times a day. naloxone (NARCAN) 4 mg/actuation [place] Apply 1 spray in one nostril if [...] Nutrition: patient continues close f/u w/ transplant engraver machine. - Bone health: Vit D level to be drawn ~POD#90. - Labs: Labs (CBC w/ diff, renal panel, liver panel, tacro level) twice a week. Lipid panel, [id number] Vit D level to be drawn at POD#90, HgbA1C and Vit D level to be drawn at POD#180. - Follow up: RTC 2 weeks Kemar Sahni MD, Fellow, Multiorgan Abdominal Transplant Surgery. [facility]. [1] Allergies Allergen Reactions Adhesive Itching [...] documented as of this encounter Care Teams Metal Fitters And Machinists Relationship Specialty Start Date End Date Enedina Mcguire NP [address] [place] [address] PCP - General Internal Medicine 10/05/24 Maureen Pantoja, RN Txp Post Coordinator Transplant Hepatology 10/28/24 documented as of this encounter
--- OUTSIDE RECORDS SUMMARY | 2024-11-11 10:30 | XMS_ITS | Encounter Summary ---
Author Organization [facility] Address [address] [place] [address] Care Team Providers Care Implementation Coordinator Name Role Phone Enedina Mcguire NP Primary Care Provider [phone] Maureen Pantoja RN Unavailable Unavail able Source [...] release of HIV test results or diagnoses. [id number] Reason for Visit * Reason Comments Kidney Transplant Follow-up Encounter Details Date Type Department Care Team (Late st Contact Info) Description 11/11/2024 10:30 AM EDT Office Visit [facility] Liver Transplant at [facility] [address] [facility] [address] [place] [address] Unknown, Attending Provider Seble Colon [address] [facility], [facility] [address] [place] [address] Kidney replaced by transplant (Primary Dx); Hypervolemia associated with renal insufficiency Social History Tobacco Use Types Packs/Day Years [...] Time Taken Comments Blood Pressure 129/80 11/11/2024 10:41 AM EDT Pulse 86 11/11/2024 10:41 AM EDT Temperature 36.6 C (97.8 F) 11/11/2024 10:41 AM EDT Respiratory Rate 16 11/11/2024 10:41 AM EDT Oxygen Saturation 100% 11/11/2024 10:41 AM EDT Inhaled Oxygen Concentration 100% 11/11/2024 1 0:41 AM EDT Weight 98.9 kg (218 lb) 11/11/2024 10:41 AM EDT Height - - Body Mass Index 26.54 10/26/2024 11:26 AM EDT documented in this encounter Progress Notes * Seble Colon - 11/11/2024 10:30 AM EDT Images from the original note were not included. Name: Julien Anderson Date of : 1985 (39 y.o.) Date of Service: 11/11/2024 Subjective History of Present Illness: BARBRA Anderson [...] Chief Complaint: Follow up after SLK. POD 15 History of Present Illness Julien Anderson is a 39 year old male who presents for nephrology follow-up. He is accompanied by his father, Richa. He has intermittent diarrhea, which is improving but fluctuates. He noted blood in his stool on Sunday, described as causing the water to appear pink, which he attributes to a possible internal hemorrhoid. The bleeding has since resolved. No fever, chills, nausea, or vomiting. He experiences a burning sensation at the initiation of urination, which resolves quickly. He has aureteral stent in place, with the removal date noted as November 25. Presence of red cells in urine is likely related to the stent. He has experienced significant weight loss, from 267 pounds at discharge to 218 pounds currently, attributed to fluid loss. He is taking torsemide 10 mg daily for the past three to four days, having reduced the dose from a higher amount due to rapid weight loss. Mild swelling is still present. He rarely requires correction for his blood sugar levels in the morning, but sometimes needs it around lunchtime and occasionally at dinner, especially if he has consumed sweets. Blood pressure is well-controlled with readings in the 130s/80s, with occasional lower readings noted. No chest pain or shortness of breath. He has a history of smoking but is no longer smoking. Review of Systems Constitutional: Negative for chills and fever. Respiratory: Negative for shortness of breath. Cardiovascular: Negative for chest pain. Gastrointestinal: Positive for diarrhea. Negative for nausea and vomiting. Genitourinary: Negative for difficulty urinating. Histories: Past Medical History: Past Medical History: [...] MD; Location: OR; Service: Transplant; Laterality: N/A; Family History: No [...] Risk (07/09/2024) Received from [facility] Overall Financial Resource Strain (CARDIA) Difficulty of [...] No Physical Activity: Unknown (07/14/2024) Received from [facility] Exercise Vital Sign Days of Exercise per Week: Patient unable to answer Minutes of Exercise per Session: Not on file Stress: Patient Unable To Answer (07/14/2024) Received from [facility] [place] of Occupational Health - Occupational Stress Questionnaire Feeling of Stress : Patient unable to answer Social Connections: Patient Unable To Answer (07/14/2024) Received from [facility] Social Connection and Isolation Panel [...] Lastdose 11/26/24 blood sugar diagnostic (GLUCOSE BLOOD) [facility] Use to test blood sugar up to 4 times a day. blood-glucose meter (TRUE METRIX GLUCOSE METER) [facility] Use to [...] (ACCU-CHEK SOFTCLIX LANCETS) [facility] Use to [...] times a day. naloxone (NARCAN) 4 mg/actuation [place] Apply 1 spray in one nostril if needed. Call 911. May repeat dose in other nostril if no response in 3 minutes. NIFEdipine (PROCARDIA-XL) 30 MG (OSM) 24 hr tablet Take 1 tablet (30 mg total) by mouth daily. pen needle, diabetic 32 gauge x 5/32 [...] [place]/CSA Target: Latest Ref Rng & Units 10/31/2024 11/01/2024 11/02/2024 11/04/2024 11/06/2024 [place]/Creatinine Level Tacrolimus by Immunoassay (USE PT. THRESHOLDS) 6 - 15 ng/mL 9.9 Creatinine (USE PT. THRESHOLDS) 0.6 - 1.3 mg/dL 1.75 1.22 1.30 1.08 1.08 1.10 Multiple values from one day are sorted in reverse-chronological order Currently Enrolled Research Studies: Objective Physical Examination: Blood pressure 129/80, pulse 86, temperature 97.8 ??F (36.6 ??C), temperature source Oral, resp. rate 16, weight 218 lb (98.9 kg), SpO2 100%. Physical Exam Physical Exam MEASUREMENTS: Weight- 218. CHEST: Lungs clear to auscultation. EXTREMITIES: Peripheral edema present. Review of Lab Results: Renal: Lab Results Component Value Date NA 136 (A) 11/06/2024 K 4.7 11/06/2024 CL 105 11/06/2024 CO2 22 11/06/2024 ANIONGAP 8 11/04/2024 BUN 35 (A) 11/06/2024 CREATININE 1.10 11/06/2024 GLUCOSE 108 11/06/2024 CALCIUM 8.1 (A) 11/06/2024 PHOS 3.4 11/06/2024 MG 1.0 (L) 11/04/2024 Hepatic: Lab Results Component Value Date ALKPHOS 142 11/06/2024 AST 24 11/06/2024 ALT 59 11/06/2024 ALBUMIN 3.5 11/06/2024 LABPROT 6.3 09/16/2024 BILIDIRECT 0.7 11/06/2024 BILITOT 0.9 11/06/2024 BILIINDIRECT 0.2 11/06/2024 LIPASE 40 09/04/2024 Lipids: Lab Results Component Value Date CHOLTOT <25 10/07/2024 TRIG 30 10/07/2024 HDL 4 (L) 10/07/2024 LDL See Note 10/07/2024 CBC: Lab Results Component Value Date WBC 7.1 11/11/2024 RBC 3.42 (L) 11/11/2024 HGB 10.6 (L) 11/11/2024 HCT 31.3 (L) 11/11/2024 MCV 91.5 11/11/2024 MCH 31.0 11/11/2024 MCHC 33.8 11/11/2024 RDW 20.5 (H) 11/11/2024 MPV 6.1 (L) 11/11/2024 PLT 308 11/11/2024 Parathyroid: Lab Results Component Value Date PTH 36.0 10/25/2024 QPOA86W 7.1 (L) 10/08/2024 Hemoglobin A1C: Lab Results [...] Urine: Lab Results Component Value Date LABCREAU 37.30 11/04/2024 LABPROT 6.3 09/16/2024 PROTEINUR 42 11/04/2024 UTPCR 1.13 11/04/2024 Others: Lab Results Component Value Date IRON 128 10/25/2024 LABIRON SEE COMMENT 10/25/2024 FERRITIN 623.2 (H) 10/25/2024 LDH 102 (L) 10/08/2024 Assessment & Plan 39 y.o. 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 DCD - NRP. KDPI 20. tCr 0.2. Kidney CIT 33:17 and WIT 27 min. Virtual and flow crossmatches negative. 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 On linezolid fro 7 days. CMV ppx: Valcyte PJP ppx: Bactrim Fungal ppx: Fluconazole Hypertension: Nifedipine 30 mg daily Volume status: Torsemide 10 mg daily for last 3-4 days continue same for now as he still has significant lower extremity swelling. will reevaluate next visit DC weight 267 lb (11/01/24)- 218 lbs BK Screening: Per protocol Hematology: Hemoglobin improving 10.6 this visit Mineral Bone Disease: Mag 1.0 Phos 1.9 Slo mag Health Maintenance: Deferred at this time in setting of recent transplant RTC: With next liver appt. SEBLE COLON This note was copied forward from the note written by Dr Juarez and EZEKIEL Santos on 11/04/2024. Lynn reviewed and updated the history, physical exam, data, assessment and plan of the note so thatit reflects the evaluation and management of the patient. 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
--- OUTSIDE RECORDS SUMMARY | 2024-11-25 09:00 | XMS_ITS | Encounter Summary ---
Author Organization [facility] Address [address] [place] [address] Care Team Providers Care Ropeman Name Role Phone Enedina Mcguire NP Primary Care Provider + [phone] Maureen Pantoja RN Unavailable Unavail able Source [...] release of HIV test results or diagnoses. [id number] Health Encounter Details Date Type Department Care Team (Late st Contact Info) Description 11/25/2024 9:00 AM EDT Procedure visit [facility] Urology at [place] [facility] 222 [facility] [address] [place] [address] Julieta Rogers PA 222 [facility] [address] [place] [address] Retained ureteral stent of transplanted kidney ([facility]-HCC) (Primary Dx) Social History Tobacco Use [...] the past 12 months has th e [employer], [employer], oil, or water company threatened to shut [...] used for procedure: Flex Uro Loaner 12 [facility] Urology Flexible Cystoscope Log Cystoscope Label Serial Number Model Flex Uro 1 [id number] Olympus CYF-VHR Flex Uro 2 [id number] Olympus CYF Type V2R Flex Uro 3 7761140 Olympus CYF Type V2R Flex Uro 4 6346334 Olympus CYF Type V2R Flex Uro 5 4992201 Olympus CYF Type V2R Flex Uro 6 4296950 Olympus CYF Type V2R Flex Uro 7 8102279 CYF VHR Flex Uro 8 8291170 CYF VHR Flex Uro 9 1359540 CYF VHR Flex Uro 10 5590049 CYF VHR Flex Uro 11 8379063 CYF VHR Flex Uro 12 4080775 CYF VHR Uro Loaner 12 [id number] CYF VHR Uro Loaner 13 [id number] CYF VHR Uro Loaner 14 [id number] CYF VHR * NAA Merida - 11/25/2024 [...] documented as of this encounter Care Teams Ropeman Relationship Specialty Start Date End Date Enedina Mcguire NP [address] [place] [address] PCP - General Internal Medicine 10/05/24 Maureen Pantoja, ЮЛИЯ Txp Post Coordinator Transplant Hepatology 10/28/24 documented as of this encounter
--- OUTSIDE RECORDS SUMMARY | 2024-11-25 10:20 | XMS_ITS | Encounter Summary ---
Author Organization [facility] Address [address] [place] [address] Care Team Providers Care Warehouse Insulation Worker Name Role Phone Enedina Mcguire NP Primary Care Provider + [phone] Alicia Rankin RN Unavailable Unavail able Source [...] release of HIV test results or diagnoses. [id number] Reason for Visit * Reason Comments Liver Transplant Follow-up Encounter Details Date Type Department Care Team (Late st Contact Info) Description 11/25/2024 10:20 AM EDT Office Visit [facility] Liver Transplant at [address] [place] [address] Lydia Sanchez MD [address] [place] [address] [place] [address] Encounter for therapeutic drug monitoring [...] the past 12 months has th e [employer], [employer], oil, or water company threatened to shut [...] Nutrition: patient continues close f/u w/ transplant artist agent. - Bone health: Vit D level to be drawn ~POD#90. - Labs: Labs (CBC w/ diff, renal panel, liver panel, tacro level) twice a week. Lipid panel, [id number] Vit D level to be drawn at POD#90, HgbA1C and Vit D level to be drawn at POD#180. - Follow up: RTC 2 weeks Trinidad Godinez MD, Fellow, Multiorgan Abdominal Transplant Surgery. [facility]. [1] Allergies Allergen Reactions Adhesive [...] per week. Follow up in 2 weeks. [place] out today. Stop fluconazole, eliquis, and torsemide. [...] therapeutic drug monitoring- Primary S/P liver transplant ([facility]-H[facility]) Hypomagnesemia Disorders of magnesium metabolism Kidney transplant [...] documented as of this encounter Care Teams Warehouse Insulation Worker Relationship Specialty Start Date End Date Enedina Mcguire NP [address] [place] [address] PCP - General Internal Medicine 10/05/24 Alicia Rankin, ЮЛИЯ Txp Post Coordinator Transplant Hepatology 10/28/24 documented as of this encounter
--- OUTSIDE RECORDS SUMMARY | 2024-11-25 10:50 | XMS_ITS | Encounter Summary ---
Author Organization [facility] Address [address] [place] [address] Care Team Providers Care Cinder Crane Operator Name Role Phone Enedina Mcguire NP Primary Care Provider + [phone] Maureen Pantoja RN Unavailable Unavail able Source [...] release of HIV test results or diagnoses. [id number] Reason for Visit * Reason Comments Liver Transplant Follow-up Encounter Details Date Type Department Care Team (Late st Contact Info) Description 11/25/2024 10:50 AM EDT Office Visit [facility] Liver Transplant at [place] [address] [place] [address] Leisa Juarez MD [address] [place] [address] 2nd [place] [address] Seble Colon [facility] [address] [place] [address] NADIYA (acute kidney injury) ([facility]) (Primary Dx); Kidney replaced by transplant; Metabolic [...] the past 12 months has th e [employer], [employer], oil, or water company threatened to shut [...] Hypertension Other hyperlipidemia 07/26/2024 Renal cell carcinoma ([facility]) Thrombocytopenia ([facility]) Thyroid disease Surgical History: Past Surgical History: [...] To Answer (07/14/2024) Received from [facility] [place] of Occupational Health - Occupational Stress [...] day. blood-glucose meter (TRUE METRIX GLUCOSE METER) [facility] Use to test blood sugar up to [...] = 12 units lancets (ACCU-CHEK SOFTCLIX LANCETS) [facility] Use to test blood sugar up to [...] times a day. naloxone (NARCAN) 4 mg/actuation [place] Apply 1 spray in one nostril [...] Results Component Value Date PTH 36.0 10/25/2024 [id number] 7.1 (L) 10/08/2024 Hemoglobin A1C: Lab Results [...] documented as of this encounter Care Teams Cinder Crane Operator Relationship Specialty Start Date End Date Enedina Mcguire NP [address] [place], [place] [id number] PCP - General Internal Medicine 10/05/24 Maureen Pantoja, RN Txp Post Coordinator Transplant Hepatology 10/28/24 documented as of this encounter
--- OUTSIDE RECORDS SUMMARY | 2024-12-04 14:15 | XMS_ITS | Encounter Summary ---
Author Organization [facility] Address [address] [place] [address] Care Team Providers Care Retail Grocer Name Role Phone Enedina Mcguire APRN Primary Care Provider + Reason for Visit * Reason Comments Follow-up Neck Pain Med Management Encounter Details Date Type Department Care Team (Late st Contact Info) Description 12/04/2024 2:15 PM EDT Office Visit [facility]IN [facility] [address] [phone] Dawn Christie PA-C [address] [facility] [address] [place] [address] Cervical radiculopathy (Primary Dx); Long-term use of [...] Recorded In the past 12 months has [employer], gas, oil, or water [employer] threatened to shut off services in your [...] GED or equivalent No 07/09/2024 Preferred Language Hungarian 07/09/2024 PHQ-2 Answer Date Recorded Patient Health [...] 2:15 PM EDT Referring Physician: Enedina Mcguire, RESIDENTIAL WORKER [address] [place] [address] Primary Physician: Enedina Mcguire APRN CHIEF COMPLAINT [...] kidney and liver transplant at [facility] since his last office visit. Additionally, he has been started on Dilaudid 2 mg every 6 hours and gabapentin 100 mg 3 times daily by one of his transplant providers at the [facility]. He was previously prescribed tramadol 50 mg 1 to 2 tablets daily as needed. Patient reports he is following up weekly with his transplant providers at the [facility]. Continues to have some chronic neck [...] Surgeon: Presley Montes De Oca MD; Location: [facility] ENDOSCOPY; Service: Gastroenterology; Laterality: N/A; ENDOSCOPY N/A 07/29/2022 Procedure: ESOPHAGOGASTRODUODENOSCOPY; Surgeon: Presley Montes De Oca MD; Location: [facility] ENDOSCOPY; Service: Gastroenterology; Laterality: N/A; WITH APC [...] from transplant providers at the [facility] for postoperative pain for the last [...] his transplant team at the [facility]. Additionally, this did reveal positive THC. Tramadol is a controlled substance and stated [place] and any use of illicit drugs/substances such [...] indicated 9. Records: Kristofer reviewed; [facility] notes reviewed 10. Lifestyle goals: Follow-up 1 month for medication management [facility] Pain Management Dawn Christie PA-C documented in this encounter Plan of Treatment Upcoming Encounters Date Type Department Care Team (Late st Contact Info) Description 01/01/2025 2:15 PM EDT Office Visit [facility] PAIN MANAGEMENT [address] [facility] [address] [place] [address] Dawn Christie PA-C [address] [facility] [address] [place] [address] documented as of this encounter Results * (ABNORMAL) Urine Drug Screen - Urine, Clean Catch (12/04/2024 2:50 PM EDT) THC, Screen, Urine Positive(A) Negative 12/04 8:32 PM EDT [facility] Phencyclidine (PCP), Urine Negative Negative 12/04/2024 8:32 PM EDT [facility] Cocaine Screen, Urine Negative Negative 12/04/2024 8:32 PM EDT [facility] Methamphetamine, Ur Negative Negative 12/04/2024 8:32 PM EDT [facility] Opiate Screen Positive(A) Negative 12/04/2024 8:32 PM EDT [facility] Amphetamine Screen, Urine Negative Negative 12/04/2024 8:32 PM EDT [facility] Benzodiazepine Screen, Urine Negative Negative 12/04/2024 8:32 PM EDT [facility] Tricyclic Antidepressants Screen Negative Negative 12/04/2024 8:32 PM EDT [facility] Methadone Screen, Urine Negative Negative 12/04/2024 8:32 PM EDT [facility] Barbiturates Screen, Urine Negative Negative 12/04/2024 8:32 PM EDT [facility] Oxycodone Screen, Urine Negative Negative 12/04/2024 8:32 PM EDT [facility] Buprenorphine, Screen, Urine Negative Negative 12/04/2024 8:32 PM EDT [facility] Urine Urine specimen obtained by clean catch procedure / Unknown Collection / Unknown 12/04/2024 2:50 PM EDT 12/04/2024 2:54 PM EDT Narrative [facility] - 12/04/2024 8:32 PM EDT [...] Christie PA-C URINE ORDERABLES Final R esult [facility]
[address] [place] [address], documented in this encounter Visit Diagnoses Diagnosis [...] as of this encounter Care Teams Retail Grocer Relationship Specialty Start Date End Date Enedina Mcguire APRN [address] [place] [address] PCP - General Nurse Practitioner 10/27/24 documented as of this encounter
--- OUTSIDE RECORDS SUMMARY | 2024-12-04 14:55 | XMS_ITS | Encounter Summary ---
Author Organization [facility] Address [address] [place] [address] Care Team Providers Care Telegraph Printer Mechanic Name Role Phone Enedina Mcguire APRN Primary Care Provider + Encounter Details Date Type Department Care Team (Late st Contact Info) Description 12/04/2024 2:55 PM EDT Lab [facility] [place] [address] [facility] [address] [place] [address] Therapeutic drug monitoring Social History Tobacco Use Types Packs/Day Years Used Date Smoking Tobacco: Former Cigarettes 4 20 Passive Smoke Exposure: Past Smokeless Tobacco: Current Comments:MARIJUANA USE ABOUT 2X PER WEEK - reports no use 08-05-2024 Alcohol Use Standard Drinks/Week Comments Not Currently 0 (1 standard drink = 0.6 oz pure alcohol) 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 [facility] Utilities Answer Date Recorded In the past 12 months has [employer], [employer], oil, or water [employer] threatened to shut off services in [...] Brief Depression Severity Measure Score 0 10/02/2022 [facility] - Occupational Stress Questionnaire Answer Date [...] GED or equivalent No 07/09/2024 Preferred Language Mauritian 07/09/2024 PHQ-2 Answer Date Recorded Patient Health [...] PM EDT Office Visit [facility] PAIN MANAGEMENT [address] [address] Vazquez Christie PA-C [address] [place] [address] documented as of this encounter Procedures Procedure Name Priority Date/Time Associated Diagnosis Comments URINE DRUG SCREEN Routine 12/04/2024 2:5 0 PM EDT Therapeutic drug monitoring FENTANYL, URINE Routine 12/04/2024 2:50 PM EDT Therapeutic drug monitoring documented in this encounter Results * Fentanyl, Urine - Urine, Clean Catch (12/04/2024 2:50 PM EDT) Fentanyl, Urine Negative Negative 12/04/2024 9:15 PM EDT [facility] Urine Urine specimen obtained by clean catch procedure / Unknown Collection / Unknown 12/04/2024 2:50 PM EDT 12/04/2024 2:54 PM EDT Narrative [facility] - 12/04/2024 9:15 PM EDT Negative Threshold: Fentanyl 5 ng/mL The normal value for the drug tested is negative. This report includes final unconfirmed screening results to be used for medical treatment purposes only. Unconfirmed results must not be used for non-medical purposes such as employment or legal testing. Clinical consideration should be applied to any drug of abuse test, particularly when unconfirmed results are used. us Vazquez Yañez Pratik PA-C URINE ORDERABLES Final R esult [facility]
[address] [place] [address], * (ABNORMAL) Urine Drug Screen - Urine, Clean Catch (12/04/2024 2:50 PM EDT) THC, Screen, Urine Positive(A) Negative 12/04 8:32 PM EDT [facility] Phencyclidine (PCP), Urine Negative Negative 12/04/2024 8:32 PM EDT [facility] Cocaine Screen, Urine Negative Negative 12/04/2024 8:32 PM EDT [facility] Methamphetamine, Ur Negative Negative 12/04/2024 8:32 PM EDT [facility] Opiate Screen Positive(A) Negative 12/04/2024 8:32 PM EDT [facility] Amphetamine Screen, Urine Negative Negative 12/04/2024 8:32 PM EDT [facility] Benzodiazepine Screen, Urine Negative Negative 12/04/2024 8:32 PM EDT [facility] Tricyclic Antidepressants Screen Negative Negative 12/04/2024 8:32 PM EDT [facility] Methadone Screen, Urine Negative Negative 12/04/2024 8:32 PM EDT [facility] Barbiturates Screen, Urine Negative Negative 12/04/2024 8:32 PM EDT [facility] Oxycodone Screen, Urine Negative Negative 12/04/2024 8:32 PM EDT [facility] Buprenorphine, Screen, Urine Negative Negative 12/04/2024 8:32 PM EDT [facility] Urine Urine specimen obtained by clean catch procedure / Unknown Collection / Unknown 12/04/2024 2:50 PM EDT 12/04/2024 2:54 PM EDT Narrative [facility] - 12/04/2024 8:32 PM [...] particularly when unconfirmed results are used. us [place] Otilio JACOME-Lalit URINE ORDERABLES Final R esult [facility]
[address] [place] [address], documented in this encounter Visit Diagnoses Diagnosis Therapeutic drug monitoring Encounter for therapeutic drug monitoring documented in this encounter Additional Health Concerns Assessment Noted Time PHQ-2 Depression Total Score: 1 12/31/19 24 3:25 PM EDT documented as of this encounter Care Teams Telegraph Printer Mechanic Relationship Specialty Start Date End Date Enedina Mcguire APRN [address] [place] [address] PCP - General Nurse Practitioner 10/27/24 documented as of this encounter
--- OUTSIDE RECORDS SUMMARY | 2024-12-08 10:54 | XMS_ITS | Encounter Summary ---
Author Organization [facility] Address [address] [place] [address] Care Team Providers Care Cranberry Grower Name Role Phone Enedina Mcguire NP Primary Care Provider + [phone] Maureen Pantoja RN Unavailable Unavail able Source [...] release of HIV test results or diagnoses. [id number] Health Encounter Details Date Type Department Care Team (Late st Contact Info) Description 11/10/2024 Orders Only [facility] Liver Transplant at [address] [place] [address] Maureen Pantoja, RN Social History Tobacco Use [...] Recorded In the past 12 months has [id number], gas, oil, or water [employer] threatened to shut off services in your [...] documented as of this encounter Care Teams Cranberry Grower Relationship Specialty Start Date End Date Enedina Mcguire NP [address] [place] [address] PCP - General Internal Medicine 10/05/24 Maureen Pantoja, ЮЛИЯ Txp Post Coordinator Transplant Hepatology 10/28/24 documented as of this encounter
--- OUTSIDE RECORDS SUMMARY | 2024-12-08 10:54 | XMS_ITS | Encounter Summary ---
Author Organization [facility] Address [address] [place] [address] Care Team Providers Care Supreme Court Judge Name Role Phone Enedina Mcguire NP Primary Care Provider + [phone] Maureen Pantoja RN Unavailable Unavail able Source [...] release of HIV test results or diagnoses. [id number] Reason for Visit * Reason Comments Results Encounter Details Date Type Department Care Team (Riky st Contact Info) Description 11/27/2024 Telephone [facility] Liver Transplant at [address] [address] Maureen Pantoja, RN Results Social [...] In the past 12 months has [email or web address], gas, oil, or water [employer] threatened to shut off services in [...] documented as of this encounter Care Teams Supreme Court Judge Relationship Specialty Start Date End Date Enedina Mcguire NP [address] [place] [address] PCP - General Internal Medicine 10/05/24 Maureen Pantoja, ЮЛИЯ Txp Post Coordinator Transplant Hepatology 10/28/24 documented as of this encounter
--- OUTSIDE RECORDS SUMMARY | 2024-12-08 10:54 | XMS_ITS | Encounter Summary ---
Author Organization [facility] Address [facility] [place] [address] Care Team Providers Care Full Stack Developer Name Role Phone Enedina Mcguire NP Primary Care Provider + [phone] Maureen Pantoja RN Unavailable Unavail able Source [...] release of HIV test results or diagnoses. [id number] Reason for Visit * Reason Comments After Hours Call Passing blood throug h stool states started this morning has had 3 bloody bowel movements kidney and liver txp done 2 weeks ago Encounter Details Date Type Department Care Team (Late st Contact Info) Description 11/09/2024 Telephone [facility] [address] [place] [address] Unknown, Attending Provider After Hours [...] Recorded In the past 12 months has [employer], gas, oil, or water [employer] threatened to shut off services in your [...] Caller to Patient and Callback: dionna anderson [phone] Patient of: liver txp txp team Nature of Call: Passing blood through stool states started this morning has had 3 bloody bowel movements kidney and liver txp done 2 weeks ago Field Scout Provider Contacted: del turner Time and Method of Contact: via cell phone 1133 am connected coordinator to dionna at 1135 am Advise Caller: If provider does not call back within 30 minutes, please call us back. ROUTE TELEPHONE NOTE - Follow Qgenda and/or Route Directly to Provider. COPY this note into [facility] Teams chat. documented in this encounter Plan [...] of this encounter Care Teams Full Stack Developer Relationship Specialty Start Date End Date Enedina Mcguire NP [address] [place] [address] PCP - General Internal Medicine 10/05/24 Maureen Pantoja, RN Txp Post Coordinator Transplant Hepatology 10/28/24 documented as of this encounter
--- OUTSIDE RECORDS SUMMARY | 2024-12-08 10:54 | XMS_ITS | Encounter Summary ---
Author Organization [facility] Address [address] [place] [address] Care Team Providers Care Clinical Information Systems Director Name Role Phone Enedina Mcguire NP Primary Care Provider + [phone] Alicia Rankin RN Unavailable Unavail able Source [...] release of HIV test results or diagnoses. [id number] Health Encounter Details Date Type Department Care Team (Late st Contact Info) Description 12/02/2024 Telephone [facility] Liver Transplant at [address] [address] Mitzy Gill MA Social History [...] In the past 12 months has [employer], gas, oil, or water company threatened to [...] advised he is almost out of FK. [facility] is working on getting an overnight shipment out to Pt but needs to confirm dosing on script. Sharda also brought the Pt on the line with us. I confirmed we have a prescription that was written on 11/25/24 but it was sent to [facility], not [facility]. Pt states he would like it re-routed to [facility] so they can get this out to him. I advised Pt and Sharda that I would have prescription updated and routed to [facility]. No further needs atthis time. documented in [...] as of this encounter Care Teams Clinical Information Systems Director Relationship Specialty Start Date End Date Enedina Mcguire NP [address] [place] [address] PCP - General Internal Medicine 10/05/24 Alicia Rankin, ЮЛИЯ Txp Post Coordinator Transplant Hepatology 10/28/24 documented as of this encounter
--- OUTSIDE RECORDS SUMMARY | 2024-12-08 10:54 | XMS_ITS | Encounter Summary ---
Author Organization [facility] Address [address] [place] [address] Care Team Providers Care Sebd Teacher Name Role Phone Enedina Mcguire NP Primary Care Provider [phone] Source Comments This information has been disclosed [...] release of HIV test results or diagnoses. [id number] Encounter Details Date Type Department Care Team (Late st Contact Info) Description 10/17/2024 Chart Note [facility] Kidney Transplant at [address] [place] [phone] Anny Cote RN Social History Tobacco Use [...] Recorded In the past 12 months has [employer], gas, oil, or water [employer] threatened to shut off services in your [...] documented as of this encounter Care Teams Sebd Teacher Relationship Specialty Start Date End Date Enedina Mcguire NP [address] [place] [address] PCP - General Internal Medicine 10/05/24 documented as of this encounter
--- OUTSIDE RECORDS SUMMARY | 2024-12-08 10:54 | XMS_ITS | Encounter Summary ---
Author Organization [facility] Address [address] [place] [address] Care Team Providers Care Product Safety Professional Name Role Phone Enedina Mcguire NP Primary Care Provider [phone] Source Comments This information has been disclosed [...] release of HIV test results or diagnoses. [id number] Encounter Details Date Type Department Care Team (Late st Contact Info) Description 10/17/2024 Chart Note [facility] Kidney Transplant at [address] [place] [address] Anny Cote, RN Copy of HLA [...] In the past 12 months has e [employer], gas, oil, or water [employer] threatened to shut off services in your [...] as of this encounter Care Teams Product Safety Professional Relationship Specialty Start Date End Date Enedina Mcguire NP [address] [place] [address] PCP - General Internal Medicine 10/05/24 documented as of this encounter
--- OUTSIDE RECORDS SUMMARY | 2024-12-08 10:54 | XMS_ITS | Encounter Summary ---
Author Organization [facility] Address [address] [place] [address] Care Team Providers Care Ultrasound Tester Name Role Phone Enedina Mcguire NP Primary Care Provider [phone] Source Comments This information has been disclosed [...] release of HIV test results or diagnoses. [id number] Encounter Details Date Type Department Care Team (Late st Contact Info) Description 10/20/2024 Telephone [facility] Liver Transplant at [address] [address] Mary Butler, RN Social History Tobacco Use [...] Recorded In the past 12 months has [employer], gas, oil, or water [employer] threatened to shut off services in your [...] Hep C donors. He'll also go to [facility] later today vs tomorrow morning for follow up MELD labs that I'll need in order to list him. All questions answered at this time. Lab orders faxed to [facility] at [phone] and emailed to patient. documented in this [...] documented as of this encounter Care Teams Ultrasound Tester Relationship Specialty Start Date End Date Enedian Mcguire NP [address] [place] [address] PCP - General Internal Medicine 10/05/24 documented as of this encounter
--- OUTSIDE RECORDS SUMMARY | 2024-12-08 10:54 | XMS_ITS | Encounter Summary ---
Author Organization [facility] Address [address] [place] [address] Care Team Providers Care Aircraft Pilot Name Role Phone Enedina Mcguire NP Primary Care Provider + [phone] Maureen Pantoja RN Unavailable Unavail able Source [...] release of HIV test results or diagnoses. [id number] Health Encounter Details Date Type Department Care Team (Late st Contact Info) Description 12/01/2024 Telephone [facility] Liver Transplant at [address] [place] [phone] Gladis Chisholm MA Social History Tobacco [...] Recorded In the past 12 months has [employer]), gas, oil, or water [employer] threatened to shut off services in your [...] have tried to fax his orders through [employer] but was unsuccessful. The plan is to send him a copy via but wanted confirmation that he had a way to print them out. * Gladis Chisholm MA - 12/01/2024 3:08 PM EDT Pt called to request that an order for a urinalysis be put in for him to get done at [facility]. Please advise. documented in [...] as of this encounter Care Teams Aircraft Pilot Relationship Specialty Start Date End Date Enedina Mcguire NP [address] [place] [address] PCP - General Internal Medicine 10/05/24 Maureen Pantoja, RN Txp Post Coordinator Transplant Hepatology 10/28/24 documented as of this encounter
--- OUTSIDE RECORDS SUMMARY | 2024-12-08 10:54 | XMS_ITS | Encounter Summary ---
Author Organization [facility] Address [address] [place] [address] Care Team Providers Care Dressing Room Porter Name Role Phone Enedina Mcguire NP Primary Care Provider + [phone] Maureen Pantoja RN Unavailable Unavail able Source [...] release of HIV test results or diagnoses. [id number] Health Encounter Details Date Type Department Care Team (Late st Contact Info) Description 11/27/2024 Chart Note [facility] Liver Transplant at [address] [place] [phone] Marlene Ro MA FK Pending 11/27 Labs [...] In the past 12 months has e [employer], gas, oil, or water [employer] threatened to shut off services in [...] 5.0 g/dL Blood Narrative Resulting Agency Comment [facility] Result [facility] Provider LAB BLOOD ORDERABLES Denisse l Result * Protime-INR (11/27/2024 7:50 AM EDT) Pathologist [facility] INR 0.93 0.9 - 1.1 Plasma Narrative Resulting Agency Comment [facility] Result [facility] Provider LAB BLOOD ORDERABLES Denisse l Result * (ABNORMAL) CBC and differential (11/27/2024 7:50 AM EDT) [facility] Hemoglobin 10.2(A) 13.5 - 17.5 g/dL [...] 6.6 10^3/mL Blood Narrative Resulting Agency Comment [facility] Result [facility] Provider LAB BLOOD ORDERABLES Denisse l Result * Hepatic Function Panel (11/27/2024 7:50 AM EDT) Pathologist [facility] Bilirubin, Direct 0.4 Bilirubin, Indirect 0.1 Alkaline Phosphatase 149 U/L ALT 19 U/L AST 13 U/L Total Bilirubin 0.5 0.1 - 1.4 mg/dL Total Protein 6.4 6.4 - 8.2 g/dL Plasma Narrative Resulting Agency Comment [facility] us Historical Provider LAB BLOOD ORDERABLES Denisse l Result documented in this encounter Visit Diagnoses Not on filedocumented in this encounter Additional Health Concerns 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
--- OUTSIDE RECORDS SUMMARY | 2024-12-08 10:54 | XMS_ITS | Encounter Summary ---
Author Organization [facility] Address [address] [place] [address] Care Team Providers Care Machine Greaser Name Role Phone Enedina Mcguire NP Primary Care Provider + [phone] Maureen Pantoja RN Unavailable Unavail able Source [...] release of HIV test results or diagnoses. [id number] Reason for Visit * Reason Comments Medication Refill Refill Request 1st A ttempt Encounter Details Date Type Department Care Team (Late st Contact Info) Description 10/21/2024 Refill [facility] Gastro[facility]ology at [facility] Office [address] [place] [phone] Gerri Peterson MD [address] [place] [address] Social History Tobacco Use Types Packs/Day Years Used Date Smoking Tobacco: Former Cigarettes Smokeless Tobacco: Current Alcohol Use Standard Drinks/Week Comments Yes 0 (1 standard drink = 0.6 oz pure alcohol) History of alcohol abuse, reports no use in 3 week- typically endorses use as 4 glasses of wine a days Utilities Answer Date Recorded In the past 12 months has [employer], gas, oil, or water [employer] threatened to shut off services in your [...] as of this encounter Care Teams Machine Greaser Relationship Specialty Start Date End Date Enedina Mcguire NP [address] [place] [address] PCP - General Internal Medicine 10/05/24 Maureen Pantoja, ЮЛИЯ Txp Post Coordinator Transplant Hepatology 10/28/24 documented as of this encounter
--- OUTSIDE RECORDS SUMMARY | 2024-12-08 10:54 | XMS_ITS | Encounter Summary ---
Author Organization [facility] Address [address] [place] [address] Care Team Providers Care Excellence Leader Name Role Phone nEedina Mcguire NP Primary Care Provider + [phone] Maureen Pantoja RN Unavailable Unavail able Source [...] release of HIV test results or diagnoses. [id number] Health Encounter Details Date Type Department Care Team (Late st Contact Info) Description 11/10/2024 Orders Only [facility] Liver Transplant at [address] [place] [phone] Maureen Pantoja, ЮЛИЯ Liver transplant recipient ([facility]) (Primary Dx); Kidney transplant recipient; Immunosuppressive management encounter following liver transplant ([facility]) Social History Tobacco Use Types Packs/Day Years Used Date Smoking Tobacco: Former Cigarettes Smokeless Tobacco: Current Alcohol Use Standard Drinks/Week Comments Yes 0 (1 standard drink = 0.6 oz pure alcohol) History of alcohol abuse, reports no use in 3 week- typically endorses use as 4 glasses of wine a days Utilities Answer Date Recorded In the past 12 months has [employer], gas, oil, or water [employer] threatened to shut off services in your [...] documented as of this encounter Care Teams Excellence Leader Relationship Specialty Start Date End Date Enedina Mcguire NP [address] [place] [address] PCP - General Internal Medicine 10/05/24 Maureen Pantoja RN Txp Post Coordinator Transplant Hepatology 10/28/24 documented as of this encounter
--- OUTSIDE RECORDS SUMMARY | 2024-12-08 10:54 | XMS_ITS | Encounter Summary ---
Author Organization [facility] Address [address] [place] [address] Care Team Providers Care Bakelite Molder Name Role Phone Enedina Mcguire NP Primary Care Provider + [phone] Maureen Pantoja RN Unavailable Unavail able Source [...] release of HIV test results or diagnoses. [id number] Reason for Visit * Reason Comments Medication Management Requesting RX for New Medication Encounter Details Date Type Department Care Team (Late st Contact Info) Description 10/21/2024 Telephone [facility] Gastroenterology at [facility] [address] [place] [phone] Gerri Peterson MD [address] [place] [address] Medication Management (Requesting RX for [...] In the past 12 months has th [employer], oil, or [employer] threatened to shut off services in your [...] Pt called. States he was discharged from [facility] on 10/17 with instructions to contact PCP to start Rx Torsemide 20 mg one tablet a day. PCP is out of town and was advised by recruiter account manager in office to contact gastro MD to obtain Rx. Pt states he is retaining 30 pounds of fluid and needs MD to send a prescription or return call dali. Pt can be reached at [phone] documented in this encounter Plan of [...] documented as of this encounter Care Teams Bakelite Molder Relationship Specialty Start Date End Date Enedina Mcguire NP [address] [place] [address] PCP - General Internal Medicine 10/05/24 Maureen Pantoja, RN Txp Post Coordinator Transplant Hepatology 10/28/24 documented as of this encounter
--- OUTSIDE RECORDS SUMMARY | 2024-12-08 10:54 | XMS_ITS | Encounter Summary ---
Author Organization [facility] Address [address] [place] [address] Care Team Providers Care Dairy Cattle Farm Worker Name Role Phone Enedina Mcguire NP Primary Care Provider + [phone] Maureen Pantoja RN Unavailable Unavail able Source [...] release of HIV test results or diagnoses. [id number] Health Encounter Details Date Type Department Care Team (Late st Contact Info) Description 12/03/2024 Chart Note [facility] Liver Transplant at [address] [place] [phone] Marlene Ro MA Social History Tobacco Use [...] Recorded In the past 12 months has [employer], gas, oil, or water [employer] threatened to shut off services in your [...] Progress Notes * Marlene Ro MA - 12/03/2024 12:43 PM EDT Images from the original note were not included. documented in this encounter Plan of Treatment [...] DIFFERENTIAL Routine 12/02/2024 8:01 AM EDT URINE CULTURE Routine 12/02/2024 8:01 AM EDT RENAL FUNCTION PANEL W/O EGFR Routine 12/02/2024 8:01 AM EDT documented in this encounter Results * Urine culture (12/02/2024 8:01 AM EDT) Urine Culture, Comprehensive No Growth URINE SPECIMEN / Unknown us Historical Provider MICROBIOLOGY - GENERAL OR DERABLES Final Result * (ABNORMAL) Renal Function Panel w/o [...] Resulting Agency Comment [facility] Result [facility] Provider LAB BLOOD ORDERABLES Denisse l Result * Creatinine, urine, random (12/02/2024 8:01 AM EDT) Creatinine, Urine 48 Urine Narrative Resulting Agency Comment [facility] Result [facility] Provider URINE ORDERABLES Final Re sult * Urinalysis w/Rfl to Microscopic (12/02/2024 8:01 AM EDT) Glucose, UA Negative Negative Ketones, UA Negative Negative Blood, UA Negative Negative Bilirubin, UA Negative Negative Urobilinogen, UA Normal Normal Protein, UA Negative Negative Leukocyte Esterase, UA Negative Negative pH, UA 6.0 4.5 - 8.0 Specific [place], UA 1.010 1.005 - 1.030 Clarity, UA Clear Clear Color, UA Yellow Light Yellow, Yellow Urine Narrative Resulting Agency Comment [facility] Result [facility] Provider URINE ORDERABLES Final Re sult [...] 6.0 10^3/mL Blood Narrative Resulting Agency Comment [facility] Provider LAB BLOOD ORDERABLES Denisse l Result * Urine Protein, Tot, Random (w/o Creat) (12/02/2024 8:01 AM EDT) Total Protein, Ur 10.0 Urine Narrative Resulting Agency Comment [facility] Result [facility] Provider URINE ORDERABLES Final Re sult * (ABNORMAL) Hepatic Function Panel (12/02/2024 8:01 AM EDT) Bilirubin, Direct 0.5 Bilirubin, Indirect 0.2 Alkaline Phosphatase 109 U/L ALT 16 U/L AST 15 U/L Total Bilirubin 0.7 0.1 - 1.4 mg/dL Total Protein 6.0(A) 6.4 - 8.2 g/dL Plasma Narrative Resulting Agency Comment [facility] Result [facility] Provider LAB BLOOD ORDERABLES Denisse l Result documented in this encounter Visit Diagnoses Not on filedocumented in this encounter Additional Health Concerns Infection Onset Date Last Indicated Resolved Time 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
--- OUTSIDE RECORDS SUMMARY | 2024-12-08 10:54 | XMS_ITS | Encounter Summary ---
Author Organization [facility] Address [address] [place] [address] Care Team Providers Care Master Hearth Technician Name Role Phone Enedina Mcguire NP Primary Care Provider + [phone] Maureen Pantoja RN Unavailable Unavail able Source [...] release of HIV test results or diagnoses. [id number] Reason for Visit * Reason Comments Medication Refill Refill Request 1st A ttempt Encounter Details Date Type Department Care Team (Late st Contact Info) Description 10/20/2024 Refill [facility] Gastroenterology at [facility] Office [address] [place] [phone] Gerri Peterson MD [address] [place] [address] Social History Tobacco Use Types Packs/Day Years Used Date Smoking Tobacco: Former Cigarettes Smokeless Tobacco: Current Alcohol Use Standard Drinks/Week Comments Yes 0 (1 standard drink = 0.6 oz pure alcohol) History of alcohol abuse, reports no use in 3 week- typically endorses use as 4 glasses of wine a days Utilities Answer Date Recorded In the past 12 months has [employer], gas, oil, or water [employer] threatened to shut off services in your [...] need filled today. PHARMACY & PHONE #: [facility] [address] [place], [place] [id number] [address] DATE OF LAST APPT: 09/02/2024 Gerri Peterson [...] as of this encounter Care Teams Master Hearth Technician Relationship Specialty Start Date End Date Enedina Mcguire NP [address] [place] [address] PCP - General Internal Medicine 10/05/24 Maureen Pantoja, RN Txp Post Coordinator Transplant Hepatology 10/28/24 documented as of this encounter
--- OUTSIDE RECORDS SUMMARY | 2024-12-08 10:54 | XMS_ITS | Encounter Summary ---
Author Organization [facility] Address [address] [place] [address] Care Team Providers Care Electronics Design Engineer Name Role Phone Enedina Mcguire NP Primary Care Provider + [phone] Maureen Pantoja RN Unavailable Unavail able Source [...] release of HIV test results or diagnoses. [id number] Health Encounter Details Date Type Department Care Team (Late st Contact Info) Description 11/07/2024 Chart Note [facility] Liver Transplant at [address] [place] [phone] Marlene Ro MA FK Pending Social History [...] Recorded In the past 12 months has [employer], gas, oil, or water [employer] threatened to shut off services in your [...] Comment [facility] Historical Provider LAB BLOOD ORDERABLES Denisse [...] Comment [facility] Historical Provider LAB BLOOD ORDERABLES Denisse l Result * (ABNORMAL) Hepatic Function Panel (11/06/2024 8:36 AM EDT) Pathologist [facility] Bilirubin, Direct 0.7 Bilirubin, Indirect 0.2 Alkaline Phosphatase 142 U/L ALT 59 U/L AST 24 U/L Total Bilirubin 0.9 0.1 - 1.4 mg/dL Total Protein 5.4(A) 6.4 - 8.2 g/dL Plasma Narrative Resulting Agency Comment [facility] Historical Provider LAB BLOOD ORDERABLES Denisse l Result documented in this encounter Visit Diagnoses Not on filedocumented in this encounter Additional Health Concerns Infection Onset Date Last Indicated Resolved Time 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
--- OUTSIDE RECORDS SUMMARY | 2024-12-08 10:54 | XMS_ITS | Encounter Summary ---
Author Organization [facility] Address [address] [place] [address] Care Team Providers Care Seedling Puller Name Role Phone Enedina Mcguire NP Primary Care Provider + [phone] Maureen Pantoja RN Unavailable Unavail able Source [...] release of HIV test results or diagnoses. [id number] Reason for Visit * Reason Comments Results Encounter Details Date Type Department Care Team (Late st Contact Info) Description 11/07/2024 Telephone [facility] Liver Transplant at [address] [phone] Maureen Pantoja, RN Results Social [...] In the past 12 months has e [employer], gas, oil, or water [employer] threatened to shut off services in your [...] documented as of this encounter Care Teams Seedling Puller Relationship Specialty Start Date End Date Enedina Mcguire NP [address] [place] [address] PCP - General Internal Medicine 10/05/24 Maureen Pantoja, RN Txp Post Coordinator Transplant Hepatology 10/28/24 documented as of this encounter
--- OUTSIDE RECORDS SUMMARY | 2024-12-08 10:54 | XMS_ITS | Encounter Summary ---
Author Organization [facility] Address [address] [place] [address] Care Team Providers Care Adjuster Name Role Phone Enedina Mcguire NP Primary Care Provider + [phone] Maureen Pantoja RN Unavailable Unavail able Source [...] release of HIV test results or diagnoses. [id number] Health Encounter Details Date Type Department Care Team (Late st Contact Info) Description 11/07/2024 Telephone [facility] Liver Transplant at [address] [phone] Marlene Ro MA Social History [...] Recorded In the past 12 months has [employer], gas, oil, or water [employer] threatened to shut off services in your [...] documented as of this encounter Care Teams Adjuster Relationship Specialty Start Date End Date Enedina Mcguire NP [address] [place] [address] PCP - General Internal Medicine 10/05/24 Maureen Pantoja, ЮЛИЯ Txp Post Coordinator Transplant Hepatology 10/28/24 documented as of this encounter
--- OUTSIDE RECORDS SUMMARY | 2024-12-08 10:54 | XMS_ITS | Encounter Summary ---
Author Organization [facility] Address [address] [place] [address] Care Team Providers Care Manager Enrollment Name Role Phone Enedina Mcguire NP Primary Care Provider + [phone] Maureen Pantoja RN Unavailable Unavail able Source [...] release of HIV test results or diagnoses. [id number] Reason for Visit * Reason Comments Results Encounter Details Date Type Department Care Team (Riky st Contact Info) Description 11/11/[address] [facility] Liver Transplant at [address] [phone] Maureen Pantoja, RN Results Social [...] In the past 12 months has e [employer], gas, oil, or water [employer] threatened to shut off services in your [...] as of this encounter Care Teams Manager Enrollment Relationship Specialty Start Date End Date Enedina Mcguire NP [address] [place] [address] PCP - General Internal Medicine 10/05/24 Maureen Pantoja, RN Txp Post Coordinator Transplant Hepatology 10/28/24 documented as of this encounter
--- OUTSIDE RECORDS SUMMARY | 2024-12-08 10:55 | XMS_ITS | Encounter Summary ---
Author Organization [facility] Address [address] [place] [address] Care Team Providers Care Audit Control Clerk Name Role Phone Enedina Mcguire NP Primary Care Provider + [phone] Maureen Pantoja RN Unavailable Unavail able Source [...] release of HIV test results or diagnoses. [id number] Health Encounter Details Date Type Department Care Team (Late st Contact Info) Description 12/04/2024 Chart Note [facility] Liver Transplant at [address] [place] [phone] Marlene Ro MA FK Pending-12/04 Social History Tobacco Use Types Packs/Day Years Used Date Smoking Tobacco: Former Cigarettes Smokeless Tobacco: Current Alcohol Use Standard Drinks/Week Comments Yes 0 (1 standard drink = 0.6 oz pure alcohol) History of alcohol abuse, reports no use in 3 week- typically endorses use as 4 glasses of wine a days Utilities Answer Date Recorded In the past 12 months has e [employer], gas, oil, or water [employer] threatened to shut off services in your [...] Associated Diagnosis Comments HEPATIC FUNCTION PANEL Routine 12/04/2024 7:47 AM EDT TACROLIMUS LEVEL Routine 12/04/2024 7:47 AM EDT PROTIME-INR Routine 12/04/2024 7:47 AM EDT CBC AND DIFFERENTIAL Routine 12/04/2024 7:47 AM EDT MAGNESIUM Routine 12/04/2024 7:47 AM EDT RENAL FUNCTION PANEL W/O EGFR Routine 12/04/2024 7:47 AM EDT documented in this encounter Results * Tacrolimus level (12/04/2024 7:47 AM EDT) Pathologist [facility] Tacrolimus Lvl 7.5 6 - 15 ng/mL Whole Blood Narrative Resulting Agency Comment [facility] Historical Provider LAB BLOOD ORDERABLES Denisse l Result * (ABNORMAL) Magnesium (12/04/2024 7:47 AM EDT) Pathologist [facility] Magnesium 1.2(A) 1.6 - 2.4 mg/dL Plasma Narrative Resulting Agency Comment [facility] us Historical Provider LAB BLOOD ORDERABLES Denisse l Result * (ABNORMAL) Renal Function Panel w/o EGFR (12/04/2024 7:47 AM EDT) Glucose 100 mg/dL BUN 22(A) 4 - 21 mg/dL CO2 27(A) 13 - 22 mmol/L Creatinine 0.90 0.6 - 1.3 mg/dL Potassium 4.0 3.4 - 5.3 mmol/L Sodium 140 137 - 147 mmol/L Chloride 106 99 - 108 mmol/L Phosphorus 4.6 2.5 - 4.9 mg/dL Calcium 9.6 8.7 - 10.7 mg/dL EGFR 93 mg/dL Albumin 4.1 3.5 - 5.0 g/dL Blood Narrative Resulting Agency Comment [facility] Result Formerly [facility] MD LAB BLOOD ORDERABLES Denisse l Result * Protime-INR (12/04/2024 7:47 AM EDT) [facility] INR 0.99 0.9 - 1.1 Plasma Narrative Resulting Agency Comment [facility] Result [facility]ly [facility] LAB BLOOD ORDERABLES Denisse l Result * (ABNORMAL) CBC and differential (12/04/2024 7:47 AM EDT) [facility] Hemoglobin 10.7(A) 13.5 - 17.5 g/dL Hematocrit 32.3(A) 41 - 53 % RDW 17.0(A) 11.5 - 14.5 % Lymphocytes Absolute 1.4 / L Monocytes Absolute 0.4 / L Eosinophils Absolute 0.0 / L Basophils Absolute 0.0 / L Neutrophils Relative 70.7 46 - 78 % Lymphocytes Relative 21.5 18 - 52 % Monocytes Relative 5.9 3 - 10 % Eosinophils Relative 0.5 0 - 6 % Basophils Relative 0.6 0 - 3 % Neutrophils Absolute 4.6 / L MCH 30.8 26.0 - 34.0 pg MCHC 33.1 30 - 37 g/dL MCV 93.1 82.0 - 108.0 fL Platelets 157 K/ L RBC 3.47(A) 4.50 - 5.90 10^6/ L WBC 6.5 10^3/mL Blood Narrative Resulting Agency Comment [facility] Result [facility]ly [facility] LAB BLOOD ORDERABLES Denisse l Result * (ABNORMAL) Hepatic Function Panel (12/04/2024 7:47 AM EDT) [facility] Bilirubin, Direct 0.5 Bilirubin, Indirect 0.2 Alkaline Phosphatase 102 U/L ALT 14 U/L AST 15 U/L Total Bilirubin 0.7 0.1 - 1.4 mg/dL Total Protein 5.8(A) 6.4 - 8.2 g/dL Plasma Narrative Resulting Agency Comment [facility] us Historical Provider LAB BLOOD ORDERABLES Denisse l Result documented in this encounter Visit Diagnoses Not on filedocumented in this encounter Additional Health Concerns Infection Onset Date Last Indicated Resolved Time 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
--- OUTSIDE RECORDS SUMMARY | 2024-12-08 10:55 | XMS_ITS | Encounter Summary ---
Author Organization [facility] Address [address] [place] [address] Care Team Providers Care Strategy Director Name Role Phone Enedina Mcguire NP Primary Care Provider + [phone] Maureen Pantoja RN Unavailable Unavail able Source [...] release of HIV test results or diagnoses. [id number] Health Encounter Details Date Type Department Care Team (Late st Contact Info) Description 12/04/2024 Telephone [facility] Liver Transplant at [address] [place] [phone] Kaylin Willard MSW Social History Tobacco Use [...] Recorded In the past 12 months has [employer], gas, oil, or water [employer] threatened to shut off services in your [...] encounter Progress Notes * NUBIA Barros - 12/04/2024 10:43 AM EDT Social Work Note- Outpatient Liver Transplant Patient is status post liver transplant on 10/27/2024. 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 Patient was required to complete CD treatment prior to transplant and completed treatment with [facility]. SW called and spoke to patient about recent PEth value: 11/25/2024 PEth of 14 ng/ml Patient reports that he had a moment of weakness and drank some wine 1x. He acknowledges his mistake and attributes this to increased stress/feeling overwhelmed with his new schedule etc. He reports he has shared this slip with his spouse and his counselor. He is continuing to see a counselor through [facility] and virtually meets with a counselor weekly and an TREE DOCTOR. He has spoke with his TREE DOCTOR and is interested in Naltrexone to help reduce cravings. He will require a letter from our teamto confirm he is able to take Naltrexone, SW to coordinate with RN coordinator. SW reviewed concerns for alcohol use post-transplant and patient was aware and agreeable. Patient to meet with MEREDITH and transplant CD counselor at next clinic appointment for additional support/follow-up. 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
--- OUTSIDE RECORDS SUMMARY | 2024-12-08 10:55 | XMS_ITS | Encounter Summary ---
Author Organization [facility] Address [facility] [place] [address] Care Team Providers Care Lay Out And Detail Drafter Name Role Phone Enedina Mcguire NP Primary Care Provider [phone] Source Comments This information has been disclosed [...] release of HIV test results or diagnoses. [id number] Health Encounter Details Date Type Department Care Team (Late st Contact Info) Description 10/20/2024 Orders Only [facility] [address] [place] [address] Abdulkadir Gaspar MD [address] [facility] [address] [facility] [place] [address] Social History Tobacco Use Types Packs/Day Years Used Date Smoking Tobacco: Former Cigarettes Smokeless Tobacco: Current Alcohol Use Standard Drinks/Week Comments Yes 0 (1 standard drink = 0.6 oz pure alcohol) History of alcohol abuse, reports no use in 3 week- typically endorses use as 4 glasses of wine a days Utilities Answer Date Recorded In the past 12 months has [employer], gas, oil, or water company threatened to [...] ORDERABLES Final Resul t Performing Organization Address [facility] Co de Phone Number [facility] [address] [place], [place] [address] [place] [address] * [facility] - ABO Typing Report (10/20/2024 5:03 PM EDT) 10/20/2024 5:03 PM EDT us Abdulkadir Gaspar MD LAB BLOOD ORDERABLES Final Resul t Performing Organization Address [facility] Co de Phone Number [facility] [address] [place] [address] documented in this encounter Visit Diagnoses Not on filedocumented in this encounter Additional Health Concerns Infection Onset Date Last Indicated Resolved Time C. difficile 09/09/2024 09/09/2024 10/27/2024 8:30 AM EDT Assessment Noted Time PHQ-9 Depression Total Score: 17 025 11:00 AM EDT documented as of this encounter Care Teams Lay Out And Detail Drafter Relationship Specialty Start Date End Date Enedina Mcguire NP [address] [place] [address] PCP - General Internal Medicine 10/05/24 documented as of this encounter
--- OUTSIDE RECORDS SUMMARY | 2024-12-08 10:55 | XMS_ITS | Encounter Summary ---
Author Organization [facility] Address [address] [place] [address] Care Team Providers Care Hide Tanner Name Role Phone Enedina Mcguire NP Primary Care Provider + [phone] Maureen Pantoja RN Unavailable Unavail able Source [...] release of HIV test results or diagnoses. [id number] Health Encounter Details Date Type Department Care Team (Late st Contact Info) Description 11/21/2024 Chart Note [facility] Liver Transplant at [address] [place] [phone] Marlene Ro MA FK: 11/18 & 11/20 [...] Recorded In the past 12 months has [employer], gas, oil, or water [employer] threatened to shut off services in [...] 5.0 g/dL Blood Narrative Resulting Agency [facility] Historical Provider LAB BLOOD ORDERABLES [...] 6.4 10^3/mL Blood Narrative Resulting Agency Comment [facility] Historical Provider LAB BLOOD ORDERABLES Denisse l Result * Hepatic Function Panel (11/20/2024 8:00 AM EDT) Bilirubin, Direct 0.4 Bilirubin, Indirect 0.1 Alkaline Phosphatase 285 U/L ALT 60 U/L AST 25 U/L Total Bilirubin 0.5 0.1 - 1.4 mg/dL Total Protein 6.4 6.4 - 8.2 g/dL Plasma Narrative Resulting Agency Comment [facility] LAB BLOOD ORDERABLES Denisse l Result * Tacrolimus level (11/18/2024 7:45 AM EDT) Pathologist [facility] Tacrolimus Lvl 12.5 6 - 15 ng/mL Whole Blood Result [facility] MD LAB BLOOD ORDERABLES Denisse l Result * (ABNORMAL) Hepatic Function Panel (11/18/2024 7:45 AM EDT) [facility] [place] [facility] Bilirubin, Direct 0.5 Bilirubin, Indirect 0.1 Alkaline Phosphatase 189 U/L ALT 41 U/L AST 23 U/L Total Bilirubin 0.6 0.1 - 1.4 mg/dL Total Protein 6.1(A) 6.4 - 8.2 g/dL Plasma Narrative Resulting Agency Comment [facility] Result [facility] LAB BLOOD ORDERABLES Denisse l Result * (ABNORMAL) Renal Function Panel w/o EGFR (11/18/2024 7:45 AM EDT) [facility] Glucose 100 mg/dL BUN 43(A) 4 - [...] 5.0 g/dL Blood Narrative Resulting Agency Comment [facility] Result [facility] MD LAB BLOOD ORDERABLES Denisse l Result * (ABNORMAL) CBC and differential (11/18/2024 7:45 AM EDT) [facility] Hemoglobin 10.2(A) 13.5 - 17.5 g/dL Hematocrit [...] 6.0 10^3/mL Blood Narrative Resulting Agency Comment [facility] us Historical Provider LAB BLOOD ORDERABLES Denisse l Result documented in this encounter Visit Diagnoses Not on filedocumented in this encounter Additional Health Concerns Infection Onset Date Last Indicated Resolved Time 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
--- OUTSIDE RECORDS SUMMARY | 2024-12-08 10:55 | XMS_ITS | Encounter Summary ---
Author Organization [facility] Address [address] [place] [address] Care Team Providers Care Director Of Managed Services Name Role Phone Enedina Mcguire NP Primary Care Provider + [phone] Maureen Pantoja RN Unavailable Unavail able Source [...] release of HIV test results or diagnoses. [id number] Health Encounter Details Date Type Department Care Team (Late st Contact Info) Description 11/25/2024 Social Work [facility] Liver Transplant at [address] [place] [phone] Kaylin Willard MSW Social History Tobacco Use [...] Recorded In the past 12 months has [employer], gas, oil, or water [employer] threatened [...] AM 09/29/2024 11:00 AM 11/25/2024 3:00 PM [id number] Score MAGALYS-7 Total Score 17 13 4 Scores are not concerning for depression/anxiety. No further SW needs identified. 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
--- OUTSIDE RECORDS SUMMARY | 2024-12-08 10:55 | XMS_ITS | Encounter Summary ---
Author Organization [facility] Address [address] [place] [address] Care Team Providers Care Merchandise Adjustment Clerk Name Role Phone Enedina Mcguire NP Primary Care Provider + [phone] Maureen Pantoja RN Unavailable Unavail able Source [...] release of HIV test results or diagnoses. [id number] Health Encounter Details Date Type Department Care Team (Late st Contact Info) Description 11/20/2024 Orders Only [facility] Liver Transplant at [address] [place] [phone] Maureen Pantoja, ЮЛИЯ S/P liver transplant (CMS-HCC) (Primary Dx); Immunosuppression ([facility]-HCC); Viral disease exposure; Alcohol use Social History [...] Recorded In the past 12 months has [employer], gas, oil, or water [employer] threatened to shut off services in [...] Cutoff: 10 ng/mL 11/28/2024 8:24 AM EDT [facility] Comment: Phosphatidylethanol (PEth) homologues result interpretation [...] Cutoff: 10 ng/mL 11/28/2024 8:24 AM EDT [facility] Comment: PEth 16:0/18:2 (PLPEth) Reference ranges are not well established PEth Interpretation Positive. 11/28 8:24 AM T [facility] Comment: ADDITIONAL INFORMATION This report is [...] Food and Drug Administration. Test Performed by: [facility] - [address] [address] Propagator: Kathy Ortiz Ph.D.; CLIA# [id number] Whole Blood 11/25/2024 8:42 AM EDT 11/28/2024 8:24 AM EDT [facility] - 11/28/2024 8:24 AM EDT One time lab order to be collected with next set of standing liver transplant labs. Please fax all results to [phone]. Call critical results to [phone]. Harvey Domínguez III, MD LAB BLOOD ORDERABLE S Final Result Performing Organization Address City/[facility]/ZIP Co de Phone Number [facility] [address] [facility]. [address] * HIV-1 RNA, Quantitative, PCR (11/25/2024 8:42 AM EDT) Pathologist [facility] HIV 1 Copies Not Detected copies/mL 11/26/2024 10:57 AM EDT [facility] Comment:Test methodology for HIV-1 RNA quantification is an FDA-approved nucleic acid amplification assay. The Lower Limit of Quantitation (LLoQ) is 20 copies/mL. The linear range is 20- to 10,000,000 copies/mL. The Limit of Detection (LoD) is 13.2 copies/mL. The reference range is Not Detected. HIV [id number] See Note [id number] /mL 11/26/2024 10:57 AM EDT [facility] Comment:HIV-1 RNA not detect ed. Plasma 11/25/2024 8:42 AM EDT 11/25/2024 10:59 AM EDT [facility] - 11/26/2024 10:57 AM EDT One time lab order to be collected with next set of standing liver transplant labs. UNOS requirement. Please fax all results to [phone]. Call critical results to [phone]. Harvey Domínguez III, MD LAB BLOOD ORDERABLE S Final Result Performing Organization Address City/[facility]/ZIP Co de Phone Number [facility] [address] * Hepatitis C RNA, Quantitative PCR (11/25/2024 8:42 AM EDT) Pathologist [facility] International Units Not Detected IU/mL 11/27/2024 11:35 AM EDT [facility] Comment:Test methodology for HCV RNA quantification is an FDA-approved nucleic acid amplification assay. The Lower Limit of Quantitation (LLOQ) is 15 IU/mL. The linear range of the assay is 15-100,000,000 IU/mL. The Limit of Detection (LoD) is 12.0 IU/mL for EDTA plasma. The reference range is Not Detected. IU log10 See Note log 10 IU/mL 11/27/2024 11:35 AM EDT [facility] Comment:HCV RNA not detected . Plasma 11/25/2024 8:42 AM EDT 11/25/2024 10:59 AM EDT [facility] - 11/27/2024 11:35 AM EDT One time lab order to be collected with next set of standing liver transplant labs. UNOS requirement. Please fax all results to [phone]. Call critical results to [phone]. Harvey Domínguez III, MD LAB BLOOD ORDERABLE S Final Result [facility] [address] [place] [address], [facility] * Hepatitis B Virus (HBV), PCR, Quant (11/25/2024 8:42 AM EDT) Hep B Viral DNA IU/ML Not Detected IU/mL 11/28/2024 10:09 AM EDT [facility] Comment:Test methodology for HBV DNA quantification is an FDA-approved nucleic acid amplification assay. The lower limit of quantitation (LLOQ) is 10 IU/mL. The linear range of the assay is 10-1,000,000,000 IU/mL. The limit of detection (LoD) for plasma is 2.7 IU/mL. The reference range is Not Detected. log 10 HBV as IU/mL See Note log 10 IU/mL 11/28/2024 10:09 AM EDT [facility] Comment:HBV DNA not detected . Plasma 11/25/2024 8:42 AM EDT 11/25/2024 10:59 AM EDT Narrative [facility] - 11/28/2024 10:09 AM EDT One time lab order to be collected with next set of standing liver transplant labs. UNOS requirement. Please fax all results to [phone]. Call critical results to [phone]. us Harvey Domínguez III, MD LAB BLOOD ORDERABLE S Final Result [facility] [address] [place], [place] [address] documented in this encounter Visit [...] documented as of this encounter Care Teams Merchandise Adjustment Clerk Relationship Specialty Start Date End Date Enedina Mcguire NP [address] [place] [address] PCP - General Internal Medicine 10/05/24 Maureen Pantoja, RN Txp Post Coordinator Transplant Hepatology 10/28/24 documented as of this encounter
--- OUTSIDE RECORDS SUMMARY | 2024-12-08 10:55 | XMS_ITS | Encounter Summary ---
Author Organization [facility] Address [address] [place] [address] Care Team Providers Care Proprietary Trader Name Role Phone Enedina Mcguire NP Primary Care Provider + [phone] Maureen Pantoja RN Unavailable Unavail able Source [...] release of HIV test results or diagnoses. [id number] Health Encounter Details Date Type Department Care Team (Late st Contact Info) Description 11/24/2024 Orders Only [facility] Liver Transplant at [address] [place] [address] Maureen Pantoja, RN Social History Tobacco Use [...] Recorded In the past 12 months has [employer], gas, oil, or water [employer] threatened to shut off services in your [...] documented as of this encounter Care Teams Proprietary Trader Relationship Specialty Start Date End Date Enedina Mcguire NP [address] [place] [address] PCP - General Internal Medicine 10/05/24 Maureen Pantoja, ЮЛИЯ Txp Post Coordinator Transplant Hepatology 10/28/24 documented as of this encounter
--- OUTSIDE RECORDS SUMMARY | 2024-12-08 10:55 | XMS_ITS | Encounter Summary ---
Author Organization [facility] Address [address] [place] [address] Care Team Providers Care Customer Service Analyst Name Role Phone Enedina Mcguire NP Primary Care Provider + [phone] Maureen Pantoja RN Unavailable Unavail able Source [...] release of HIV test results or diagnoses. [id number] Reason for Visit * Reason Comments Results Encounter Details Date Type Department Care Team (Riky st Contact Info) Description 12/04/2024 Telephone [facility] Liver Transplant at [address] [phone] Maureen Pantoja, RN Results Social [...] In the past 12 months has e [employer], gas, oil, or water [employer] threatened to shut off services in [...] Progress Notes * Maureen Pantoja RN - 12/08/2024 9:48 AM EDT FK 7.5 Patient to repeat labs tomorrow at [facility] prior to Liver and Hepatorenal clinic visits. * Maureen Pantoja RN - 12/04/2024 12:57 PM EDT Lab results from 12/02/24 & 12/04/24 reviewed. Renal panel remains stable. Most recently: Cr 0.9; BUN 22. LFTs remain stable. Most recently: Alk phos 102, AST/ALT . FK from both dates are pending. Will follow-up. Current IS: FK 5 mg in AM and 6 mg in PM MMF 500 mg BID Prednisone 10 mg daily (decreased 11/29/24) documented in this encounter Miscellaneous Notes * Telephone Encounter - Maureen Pantoja RN - 12/05/2024 10:14 AM EDT FK from 12/02/24 was actually missed by lab. FK from 12/04/24 still pending. 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
--- OUTSIDE RECORDS SUMMARY | 2024-12-08 10:55 | XMS_ITS | Encounter Summary ---
Author Organization [facility] Address [address] [place] [address] Care Team Providers Care Delivery Truck Driver Heavy Name Role Phone Enedina Mcguire NP Primary Care Provider + [phone] Maureen Pantoja RN Unavailable Unavail able Source [...] release of HIV test results or diagnoses. [id number] Health Encounter Details Date Type Department Care Team (Late st Contact Info) Description 12/04/2024 Telephone [facility] Liver Transplant at [address] [address] Marlene Ro MA Social History [...] Recorded In the past 12 months has [employer], gas, oil, or water [employer] threatened to shut off services in your [...] Progress Notes * Marlene Ro MA - 12/04/2024 9:31 AM EDT Pt called yesterday and asked to be transferred to MEREDITH Barros. I transferred the call andadvised pt to [facility] if no answer. He called again today and stated that he has not been able to reach her yet. I initiated transfer again. Sent this encounter to her as well, as I told pt I would try to reach her too. 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
--- OUTSIDE RECORDS SUMMARY | 2024-12-08 10:55 | XMS_ITS | Encounter Summary ---
Author Organization [facility] Address [address] [place] [address] Care Team Providers Care Grinder Set Up Operator Thread Name Role Phone Enedina Mcguire NP Primary Care Provider + [phone] Maureen Pantoja RN Unavailable Unavail able Source [...] release of HIV test results or diagnoses. [id number] Health Encounter Details Date Type Department Care Team (Late st Contact Info) Description 11/20/2024 Refill [facility] Liver Transplant at [address] [place] [phone] Maureen Pantoja, RN Social History Tobacco Use [...] Recorded In the past 12 months has [employer], gas, oil, or water [employer] threatened to shut off services in your [...] Date End Date Enedina Mcguire NP [address] [place] [address] PCP - General Internal Medicine 10/05/24 Maureen Pantoja, ЮЛИЯ Txp Post Coordinator Transplant Hepatology 10/28/24 documented as of this encounter
--- OUTSIDE RECORDS SUMMARY | 2024-12-08 10:55 | XMS_ITS | Encounter Summary ---
Author Organization [facility] Address [address] [place] [address] Care Team Providers Care Tanning Wheel Filler Name Role Phone Enedina Mcguire NP Primary Care Provider + [phone] Maureen Pantoja RN Unavailable Unavail able Source [...] release of HIV test results or diagnoses. [id number] Health Encounter Details Date Type Department Care Team (Late st Contact Info) Description 11/21/2024 Orders Only [facility] [address] [facility] [address] [place] [address] Vasile Gordillo MA Social History [...] Recorded In the past 12 months has [employer], gas, oil, or water [employer] threatened to shut off services in your [...] documented as of this encounter Care Teams Tanning Wheel Filler Relationship Specialty Start Date End Date Enedina Mcguire NP [address] [place] [address] PCP - General Internal Medicine 10/05/24 Maureen Pantoja, ЮЛИЯ Txp Post Coordinator Transplant Hepatology 10/28/24 documented as of this encounter
--- OUTSIDE RECORDS SUMMARY | 2024-12-08 10:55 | XMS_ITS | Encounter Summary ---
Author Organization [facility] Address [address] [place] [address] Care Team Providers Care Rn Advice Name Role Phone Enedina Mcguire NP Primary Care Provider [phone] Source Comments This information has been disclosed [...] release of HIV test results or diagnoses. [id number] Reason for Visit * Reason Comments Prescription Issue RX Clarification Req uest Encounter Details Date Type Department Care Team (Late st Contact Info) Description 10/20/2024 Telephone [facility] Gastroenterology at [facility] Office [address] [place] [phone] Gerri Peterson MD [address] [place] [address] Prescription Issue (RX Clarification Request [...] Recorded In the past 12 months has [employer], gas, oil, or water [employer] threatened to shut off services in [...] to be filled Please return call to [phone]. documented in this encounter Plan of Treatment Not on file documented as of this encounter Visit Diagnoses Not on filedocumented in this encounter Additional Health Concerns Infection Onset Date Last Indicated Resolved Time C. difficile 09/09/2024 09/09/2024 10/27/2024 8:30 AM EDT Assessment Noted Time PHQ-9 Depression Total Score: 17 05/19/2 025 11:00 AM EDT documented as of this encounter Care Teams Rn Advice Relationship Specialty Start Date End Date Enedina Mcguire NP [address] [place] [address] PCP - General Internal Medicine 10/05/24 documented as of this encounter
--- OUTSIDE RECORDS SUMMARY | 2024-12-08 10:55 | XMS_ITS | Encounter Summary ---
Author Organization [facility] Address [address] [place] [address] Care Team Providers Care Crop And Soil Scientist Name Role Phone Enedina Mcguire NP Primary Care Provider + [phone] Maureen Pantoja RN Unavailable Unavail able Source [...] release of HIV test results or diagnoses. [id number] Reason for Visit * Reason Comments Results Encounter Details Date Type Department Care Team (Riky st Contact Info) Description 11/21/2024 Telephone [facility] Liver Transplant at [address] [address] Maureen Pantoja, RN Results Social [...] In the past 12 months has [employer], gas, oil, or water [employer] threatened to shut off services in your [...] as of this encounter Care Teams Crop And Soil Scientist Relationship Specialty Start Date End Date Enedina Mcguire NP [address] [place] [address] PCP - General Internal Medicine 10/05/24 Maureen Pantoja, RN Txp Post Coordinator Transplant Hepatology 10/28/24 documented as of this encounter
--- OUTSIDE RECORDS SUMMARY | 2024-12-08 10:55 | XMS_ITS | Encounter Summary ---
Author Organization [facility] Address [address] [place] [address] Care Team Providers Care Exhibits Curator Name Role Phone Enedina Mcguire NP Primary Care Provider + [phone] Maureen Pantoja RN Unavailable Unavail able Source [...] release of HIV test results or diagnoses. [id number] Health Encounter Details Date Type Department Care Team (Late st Contact Info) Description 11/20/2024 Refill [facility] Liver Transplant at [address] [place] [phone] Maureen Pantoja, RN Social History Tobacco Use [...] Recorded In the past 12 months has [employer], gas, oil, or water [employer] threatened to shut off services in your [...] documented as of this encounter Care Teams Exhibits Curator Relationship Specialty Start Date End Date Enedina Mcguire NP [address] [place] [address] PCP - General Internal Medicine 10/05/24 Maureen Pantoja, ЮЛИЯ Txp Post Coordinator Transplant Hepatology 10/28/24 documented as of this encounter
--- OUTSIDE RECORDS SUMMARY | 2024-12-08 10:55 | XMS_ITS | Data Portability ---
Author Organization [facility],, Main Office Address [address] [place] [address] Assessment No assessment recorded. Plan of Treatment [...] Available No t Available BD Regular Bevel [place] 18 gauge x 1 active Not Available [...] Updated DateTime 3 193.04 cm 29.1 kg/m2 405916. 58 g 112 /min 97.7 [degF] 141/84 mm[Hg] [facility], 3 13:14:11 Date Recorded Body height Body mass index (BMI) Body weight Heart rate Body temperature Systolic And Diastolic Provider Name and Address Organization Details Last Updated DateTime 4 193.04 cm 30.4 kg/m2 479985. 09 g 92 /min 97.5 [degF] 176/104 mm[Hg] [facility], 4 14:06:31 Date Recorded Body temperature Provider Name a nd Address Organization Details Last Updated DateTime 12/27/2020 99.5 [degF] Cuca Strickland [facility], 12/27/2020 13:41:33 Date Recorded Body weight Heart rate Body temperature Systolic And Diastolic Provider Name and Address Organization Details Last Updated DateTime 04/03/2022 104701.95 g 93 /min 97.6 [degF] 114/83 mm[Hg] Ashley Wallace [facility], 04/03/2022 14:42:57 Social History None recorded. Functional Status None recorded. Mental Status None recorded. Family History Nothing Reported. Medical History No medical history recorded. Past Encounters Encounter ID Performer Location Encounter Start Date Encounter Closed Date Diagnosis/Indication Diagnosis SNOMED-CT Code Diagnosis ICD10 Code Diagnosis Note [id number] Yung Felipe DO Main Office [address] [place] [id number] 12/27/2020 13:24:24 12/27/2020 14:00:19 Evaluation of semen fertility 082834333 N46.9 semen analysis [id number] Yung Felipe DO Main Office [address] [place] [id number] 07/04/2021 14:47:56 07/04/2021 16:00:05 Evaluation of semen fertility 949955671 N46.9 semen analysis [id number] Yung Felipe DO Main Office [address] [place] [id number] 05/31/2022 13:04:00 05/31/2022 13:50:01 Evaluation of semen fertility 054809830 N46.9 semen analysis + viability: analysis by Dr. Ruiz [id number] Yung Felipe DO Main Office [address] [place] [id number] 10/22/2023 13:58:48 10/22/2023 14:31:18 Evaluation of semen fertility 037822246 N46.9 semen analysis + viability: analysis by Dr. Ruiz Health Concerns Section Related Observation LastModified by Organization Detai ls LastModified Time None Recorded Concern Status LastModified by Organization Details LastModified Time None Recorded Advance Directives Directive None Recorded Payers Insurance Date Sequence Insurance Name Policy Number Policy Boyer Covered Member ID Byoer Member ID Guarantor Name 12/13/2020 1 *SELF PAY* Malcolm Anderson
[2024-12-08 10:57] LABS: Microscopic, Urine URINE MICROSCOPIC (MICROSCOPIC)
--- OUTSIDE RECORDS SUMMARY | 2024-12-08 10:58 | XMS_ITS | Encounter Summary ---
Author Organization [facility] Address [address] [place] [address] Care Team Providers Care Member Service Representative Name Role Phone Enedina Mcguire NP Primary Care Provider [phone] Source Comments This information has been disclosed [...] release of HIV test results or diagnoses. [id number] Encounter Details Date Type Department Care [...] Recorded In the past 12 months has [employer], oil, or water [employer] threatened to shut off services in your [...] documented as of this encounter Care Teams Member Service Representative Relationship Specialty Start Date End Date Enedina Mcguire NP [address] [place], [place] [address] PCP - General Internal Medicine 10/05/24 documented as of this encounter
--- OUTSIDE RECORDS SUMMARY | 2024-12-08 10:58 | XMS_ITS | Encounter Summary ---
Author Organization [facility] Address [address] [place] [address] Care Team Providers Care Processing Engineer Name Role Phone Enedina Mcguire NP Primary Care Provider [phone] Source Comments This information has been disclosed [...] release of HIV test results or diagnoses. [id number] Encounter Details Date Type Department Care Team (Late st Contact Info) Description 10/26/2024 Chart Note [facility] Liver Transplant at [address] [place] [phone] Geri Vasquez, ЮЛИЯ Social History Tobacco Use [...] Recorded In the past 12 months has [employer], gas, oil, or water [employer] threatened to shut off services in your [...] documented as of this encounter Care Teams Processing Engineer Relationship Specialty Start Date End Date Enedina Mcguire NP [address] [place] [address] PCP - General Internal Medicine 10/05/24 documented as of this encounter
--- OUTSIDE RECORDS SUMMARY | 2024-12-08 10:58 | XMS_ITS | Encounter Summary ---
Author Organization [facility] Address [address] [place] [address] Care Team Providers Care Aquatics Manager Name Role Phone Enedina Mcguire NP Primary Care Provider [phone] Source Comments This information has been disclosed [...] release of HIV test results or diagnoses. [id number] Reason for Visit * Reason Comments DDLT patient instructions Encounter Details Date Type Department Care Team ([facility] st Contact Info) Description 10/25/2024 Telephone [facility] Liver Transplant at [address] [address] Krissy Crowell RN DDLT patient [...] Recorded In the past 12 months has [employer], gas, oil, or water [employer] threatened to shut off services in your [...] Patient will arrive to PACU, ETA is [phone]. Nursing Legal Compliance Officer (Humaira), PACU (Emily), SICU (Lizeth), OR (Omar), [...] documented as of this encounter Care Teams Aquatics Manager Relationship Specialty Start Date End Date Enedina Mcguire NP [address] [place], [place] [address] PCP - General Internal Medicine 10/05/24 documented as of this encounter
--- OUTSIDE RECORDS SUMMARY | 2024-12-08 11:00 | XMS_ITS | Encounter Summary ---
Author Organization [facility] Address [address] [place] [address] Care Team Providers Care Cell Operation Supervisor Name Role Phone Enedina Mcguire NP Primary Care Provider [phone] Source Comments This information has been disclosed [...] release of HIV test results or diagnoses. [id number] Encounter Details Date Type Department Care Team (Late st Contact Info) Description 10/26/2024 Chart Note [facility] Kidney Transplant at [address] [place] [phone] Geri Vasquez, ЮЛИЯ Social History Tobacco Use [...] Recorded In the past 12 months has [employer], gas, oil, or water [employer] threatened to shut off services in your [...] as of this encounter Care Teams Cell Operation Supervisor Relationship Specialty Start Date End Date Enedina Mcguire NP [address] [place] [address] PCP - General Internal Medicine 10/05/24 documented as of this encounter
--- OUTSIDE RECORDS SUMMARY | 2024-12-08 11:00 | XMS_ITS | Encounter Summary ---
Author Organization [facility] Address [address] [place] [address] Care Team Providers Care Corporate Director Talent Assessment Name Role Phone Enedina Mcguire NP Primary Care Provider [phone] Source Comments This information has been disclosed [...] release of HIV test results or diagnoses. [id number] Encounter Details Date Type Department Care Team (Late st Contact Info) Description 10/22/[address] Status [address] [facility] Kidney Transplant at [facility] [address] [facility] [address] [place] [address] Aaron Gonzalez MD [address] [facility] [place] [address] Social History Tobacco Use Types Packs/Day Years Used Date Smoking Tobacco: Former Cigarettes Smokeless Tobacco: Current Alcohol Use Standard Drinks/Week Comments Yes 0 (1 standard drink = 0.6 oz pure alcohol) History of alcohol abuse, reports no use in 3 week- typically endorses use as 4 glasses of wine a days Utilities Answer Date Recorded In the past 12 months has [employer], gas, oil, or water [employer] threatened to [...] as of this encounter Care Teams Corporate Director Talent Assessment Relationship Specialty Start Date End Date Enedina Mcguire NP [address] [place] [address] PCP - General Internal Medicine 10/05/24 documented as of this encounter
--- OUTSIDE RECORDS SUMMARY | 2024-12-08 11:00 | XMS_ITS | Encounter Summary ---
Author Organization [facility] Address [address] [place] [address] Care Team Providers Care Day Light Relief Operator Name Role Phone Enedina Mcguire NP Primary Care Provider + [phone] Alicia Rankin RN Unavailable Unavail able Source [...] release of HIV test results or diagnoses. [id number] Reason for Visit * Reason Comments Results Encounter Details Date Type Department Care Team (Riky st Contact Info) Description 11/26/2024 Telephone [facility] Liver Transplant at [address] [address] Alicia Rankin, RN Results Social [...] In the past 12 months has [employer], gas, oil, or water [employer] threatened to shut off services in your [...] documented as of this encounter Care Teams Day Light Relief Operator Relationship Specialty Start Date End Date Enedina Mcguire NP [address] [place] [address] PCP - General Internal Medicine 10/05/24 Alicia Rankin, RN Txp Post Coordinator Transplant Hepatology 10/28/24 documented as of this encounter
--- OUTSIDE RECORDS SUMMARY | 2024-12-08 11:00 | XMS_ITS | Encounter Summary ---
Author Organization [facility] Address [facility] [place] [address] Care Team Providers Care Surgical Forceps Fabricator Name Role Phone Enedina Mcguire NP Primary Care Provider [phone] Source Comments This information has been disclosed [...] release of HIV test results or diagnoses. [id number] Health Encounter Details Date Type Department Care Team (Late st Contact Info) Description 10/27/2024 Orders Only [facility] [address] [place] [address] Abdulkadir Gaspar MD [address] [facility] [address] [place] [address] Social History Tobacco Use Types Packs/Day Years Used Date Smoking Tobacco: Former Cigarettes Smokeless Tobacco: Current Alcohol Use Standard Drinks/Week Comments Yes 0 (1 standard drink = 0.6 oz pure alcohol) History of alcohol abuse, reports no use in 3 week- typically endorses use as 4 glasses of wine a days Utilities Answer Date Recorded In the past 12 months has [employer], gas, oil, or water company threatened to [...] MD LAB BLOOD ORDERABLES Final Resul t [facility] [address] [place] [address] documented in this encounter Visit Diagnoses Not on filedocumented in this encounter Additional Health Concerns Infection Onset Date Last Indicated Resolved Time C. difficile 09/09/2024 09/09/2024 10/27/2024 8:30 AM EDT Assessment Noted Time PHQ-9 Depression Total Score: 17 025 11:00 AM EDT documented as of this encounter Care Teams Surgical Forceps Fabricator Relationship Specialty Start Date End Date Enedina Mcguire NP [address] [place] [address] PCP - General Internal Medicine 10/05/24 documented as of this encounter
--- OUTSIDE RECORDS SUMMARY | 2024-12-08 11:00 | XMS_ITS | Encounter Summary ---
Author Organization [facility] Address [address] [place] [address] Care Team Providers Care Staffing Analyst Name Role Phone Enedina Mcguire NP Primary Care Provider [phone] Source Comments This information has been disclosed [...] release of HIV test results or diagnoses. [id number] Health Encounter Details Date Type Department Care Team (Late st Contact Info) Description 10/22/2024 Chart Note [facility] [address] [place] [address] Aaron Gonzalez MD [address] [phone] Candidacy for a simultaneous liver-kidney transplant Social [...] Recorded In the past 12 months has [employer], gas, oil, or water [employer] threatened to shut off services in your [...] disease (ESRD) patient in a hospital based, [facility] based, or home setting. -At [...] I have discussed this plan with the pain coordinator and the liver transplant team. documented [...] documented as of this encounter Care Teams Staffing Analyst Relationship Specialty Start Date End Date Enedina Mcguire NP [address] [place] [address] PCP - General Internal Medicine 10/05/24 documented as of this encounter
--- OUTSIDE RECORDS SUMMARY | 2024-12-08 11:01 | XMS_ITS | Clinical Summary ---
Author Organization [facility] Address [address] [place] [address] Care Team Providers Care Take Down Inspector Name Role Phone Enedina Mcguire APRN Primary Care Provider + Allergies No known active allergies Medications riFAXIMin (Xifaxan) 550 MG tabletIndications :Hepatic encephalopathy Take 1 tablet by mouth Every 12 (Twelve) Hours. 180 tablet 023 Active folic acid (FOLVITE) 1 MG tablet Take 1 tablet by mouth Daily. Active Additional Information Patient not taking.Reported on 12/04/2024 lactulose (CHRONULAC) 10 GM/15ML solution Take 30 mL by mouth 2 (Two) Times a Day. 025 Active Additional Information Patient not taking.Reported on 12/04/2024 multivitamin with minerals tablet tablet Take 1 tablet by mouth Daily. 025 Active Additional Information Patient not taking.Reported on 12/04/2024 thiamine (VITAMIN B1) 100 MG tablet Take 1 tablet by mouth Daily. 025 Active Additional Information Patient not taking.Reported on 12/04/2024 topiramate (TOPAMAX) 25 MG tablet Take by mouth. 025 Active naloxone (NARCAN) 4 MG/0.1ML nasal spray Administer 1 spray into the nostril(s) as directed by provider. Active lidocaine (LIDODERM) 5 % Place 1 patch on the skin as directed by provider Daily. 025 Active Bempedoic Acid-Ezetimibe (Nexlizet) 180-10 MG tablet Take 1 tablet by mouth Daily. Active levothyroxine (SYNTHROID, LEVOTHROID) 75 MCG tabletIndications :Acquired hypothyroidism Take 1 tablet by mouth Daily. 30 tablet Active pantoprazole (PROTONIX) 40 MG EC tabletIndications :Secondary esophageal varices without bleeding Take 1 tablet by mouth Daily. 30 tablet Active ciprofloxacin (CIPRO) 500 MG tablet Take 1 tablet by mouth Daily. Active FLUoxetine (PROzac) 20 MG capsule Take 1 capsule by mouth Daily. Active lactulose (CHRONULAC) 10 GM/15ML solution solution (encephalopathy) Take 30 mL by mouth 3 (Three) Times a Day. Active loratadine (CLARITIN) 10 MG tablet Take 1 tablet by mouth. Active methocarbamol (ROBAXIN) 500 MG tablet Take 1 tablet by mouth 3 (Three) Times a Day. Active midodrine (PROAMATINE) 10 MG tablet Take 1 tablet by mouth 3 (Three) Times a Day. Active potassium chloride ER (K-TAB) 20 MEQ tablet controlled-releas e ER tablet Take 2 tablets by mouth Daily. Active torsemide (DEMADEX) 20 MG tablet Active ursodiol (ACTIGALL) 300 MG capsule Take 1 capsule by mouth. Active zinc sulfate (ZINCATE) 220 (50 Zn) MG capsule Take 1 capsule by mouth Daily. Active tacrolimus (PROGRAF) 1 MG capsule Take by mouth. Take 5 capsules (5 mg total) by mouth every morning AND 6 capsules (6 mg total) at bedtime. Use as directed. Indications: Prevention of Kidney Transplant Rejection, Prevention of Liver Transplant Rejection. Active mycophenolate (CELLCEPT) 250 MG capsule Take 2 capsules by mouth 2 (Two) Times a Day. Active HYDROmorphone (DILAUDID) 2 MG tablet Take 1 tablet by mouth Every 6 (Six) Hours. Active predniSONE (DELTASONE) 5 MG tablet Take 2 tablets by mouth Daily. Active valGANciclovir (VALCYTE) 450 MG tablet Take 1 tablet by mouth Daily. Active traMADol (ULTRAM) 50 MG tabletIndications :Cervical radiculopathy,Deep g-term use of high-risk medication,Cervic al pain (neck),Chronic pain syndrome Take 1 tablet by mouth Daily As Needed for Moderate Pain. 30 tablet 025 Active traMADol (ULTRAM) 50 MG tabletIndications :Cervical pain (neck),Long-term use of high-risk medication Take 1 tablet by mouth Every 12 (Twelve) Hours As Needed for Moderate Pain. 50 tablet 025 2024 Discontinued(R eorder) traMADol (ULTRAM) 50 MG tabletIndications :Long-term use of high-risk medication,Cervic al pain (neck) Take 1 tablet by mouth 2 (Two) Times a Day As Needed for Moderate Pain. 40 tablet 025 2024 Discontinued Active Problems Problem Noted [...] Encounters Date Type Department Care Team Description 12/05/2024 Telephone [facility] PAIN MANAGEMENT [address] [place] [address] Vazquez Christie PA-C 12/04/2024 2:55 PM EDT Lab [facility] [place] [address] [facility] [address] [place] [phone] Therapeutic drug monitoring 12/04/2024 2:15 PM EDT Office Visit [facility] PAIN MANAGEMENT [address] [facility] [address] [place] [address] Vazquez Christie PA-C Cervical radiculopathy (Primary Dx); Long-term use of high-risk medication; Cervical pain (neck); Cervical spondylosis without myelopathy; Therapeutic drug monitoring; Chronic pain syndrome 12/04/2024 Travel 10/27/2024 Telephone [facility] INTERNAL MEDICINE [address] [place], [place] [phone] Enedina Mcguire APRN CALLBACK 10/22/2024 2:15 PM EDT Office Visit [facility] PAIN MANAGEMENT [address] [phone] Vazquez Christie PA-C Cervical radiculopathy (Primary Dx); Cervical spondylosis without myelopathy; Cervical pain (neck); Long-term use of high-risk medication; Therapeutic drug monitoring 10/22/2024 Travel 10/21/2024 Telephone [facility] INTER[facility] [address] [place] [phone] Enedina Mcguire APRN New Med Request 10/20/2024 Telephone [facility] PAIN MANAGEMENT [address] [phone] BURGESS - RX REFILL 10/20/2024 Telephone [facility] [address] [place] [phone] Enedina Mcguire APRN Med Management 10/20/2024 Refill [facility] [address] [place] [phone] Enedina Mcguire FUEL BUYER Hepatic encephalopathy; Acquired hypothyroidism; Secondary esophageal varices without bleeding 10/17/2024 Telephone [facility] [address] [place] [address] Enedina Mcguire, FUEL BUYER 10/07/2024 Results Follow-Up [facility] INTER[facility] [address] [place] [phone] Enedina Mcguire, FUEL BUYER 10/07/2024 Results Follow-Up [facility] [address] [place] [phone] Enedina Mcguire, FUEL BUYER 09/19/2024 Refill [facility] [address] [place] [phone] Enedina Mcguire, FUEL BUYER Cervical pain (neck); Long-term use of high-risk [...] Grandfather Elton Pascal Stroke Maternal Grandmother Sudha RedmondNail Cancer Mother Elle Anderson Osteoarthritis Mother Elle Anderson Stroke Mother Elle Anderson Liver cancer Neg Hx Liver disease Neg Hx Relation Name Status Comments Brother Alive Father Richa Anderson Alive Maternal Grandfather Elton Pascal Maternal Grandmother Sudha RedmondNail Mother Elle Anderson Alive Social History Tobacco Use Types Packs/Day Years Used Date Smoking Tobacco: Former Cigarettes 4 20 Passive Smoke Exposure: Past Smokeless Tobacco: Current Comments:MARIJUANA USE ABOUT 2X PER WEEK - reports no use 08-05-2024 Alcohol Use Standard Drinks/Week Comments Not Currently 0 (1 standard drink = 0.6 oz pure alcohol) 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 [facility] Utilities Answer Date Recorded In the past 12 months has th e electric, gas, oil, or water [employer] threatened to shut off services in your [...] Brief Depression Severity Measure Score 0 10/02/2022 [facility] - Occupational [...] GED or equivalent No 07/09/2024 Preferred Language Montserratian 07/09/2024 PHQ-2 Answer Date Recorded Patient Health [...] EDT Inhaled Oxygen Concentration - - Weight 98.4 kg (217 lb) 12/04/2024 2:06 PM EDT Height 193 cm (6' 3.98 ) 12/04/2024 2:06 PM EDT Body Mass Index 26.43 12/04/2024 2:06 PM EDT Plan of Treatment Upcoming Encounters Date Type Department Care Team (Late st Contact Info) Description 01/01/2025 2:15 PM EDT Office Visit [facility] [address] [facility] [address] [place] [address] Vazquez Christie PA-C [address] [place] [phone] Health Maintenance Due Date Last Done Comments Hepatitis B (2 of 3 - 19+ 3- dose series) 10/11/2010 09/13/2010 ANNUAL PHYSICAL 10/14/2024 10/15/2023, 10/02/2022 INFLUENZA VACCINE 02/11/2025 03/12/2024, 03/12/2023 LIPID PANEL 10/07/2025 10/07/2024, 0307/2024, 07/14/2024, Additional history exists TDAP/TD VACCINES (3 - Td or Tdap) 06/03/2028 019, 09/13/2010 COVID-19 Vaccine Discontinued 03/17/2021, , 06/27/2020 HEPATITIS C SCREENING Completed 11/25/2024 , 11/25/2024, 10/25/2024, Additional history exists Pneumococcal Vaccine 0-49 Discontinued Medical Devices Implanted Type Area Clam Bed Laborer Device Identifier Shelf Expiration Date Model / Serial / Lot Coil Concerto Pgla Hel Detach Sys 10mm 30cm - [id number] Implanted:Qty: 1 on 07/03/2022 by Timmy Brunner MD at [facility] Implant Left: Vein EV3 A COVHarir [id number] / / [id number] Description:Coil is in the s hort gastric vein Coil Concerto Nyl [place] Detach Sys 10mm 30cm - [id number] Implanted:Qty: 1 on 07/03/2022 by Timmy Brunner MD at [facility] Implant Left: Vein EV3 A [employer] [id number] / / [id number] Description:Short gastric ve in Coil Concerto Nyl [place] Detach Sys 10mm 30cm - [id number] Implanted:Qty: 1 on 07/03/2022 by Timmy Brunner MD at [facility] Implant Left: Vein EV3 A [employer]EN [employer] [id number] / / [id number] Description:Short gasrtic ve in Coil Concerto Nyl [place] Detach Sys 10mm 30cm - [id number] Implanted:Qty: 1 on 07/03/2022 by Timmy Brunner MD at [facility] Implant Left: Vein EV3 A [employer] [id number] / / [id number] Description:Short gastric ve in Coil Concerto Nyl [place] Detach Sys 8mm 30cm - [id number] Implanted:Qty: 1 on 07/03/2022 by Timmy Brunner MD at [facility] Implant Left: Vein EV3 A [employer] [id number] / / [id number] Description:Short gastric ve in Coil Concerto Nyl [place] Detach Sys 8mm 30cm - [id number] Implanted:Qty: 1 on 07/03/2022 by Timmy Brunner MD at [facility] Implant Left: Vein EV3 A [employer] [id number] / / [id number] Description:Short gastric ve in Sys Del Liq Emb Trufill Nbca 1g Vl - [id number] Implanted:Qty: 1 on 07/03/2022 by Timmy Brunner MD at [facility] Implant Left: Vein [facility] [id number] / / [id number] Description:Short gastric ve in Plug Vasc Anton Emb Ampltz .027 1po3b82qb - [id number] Implanted:Qty: 1 on 07/03/2022 by Timmy Brunner MD at [facility] Implant Left: Vein [employer] [id number] / / [id number] Description:Coronary vein Coil Concerto Nyl [place] Detach Sys 8mm 30cm - [id number] Implanted:Qty: 1 on 07/03/2022 by Timmy Brunner MD at [facility] Implant Left: Vein EV3 A [employer] [id number] / / [id number] Description:CORONARY VEIN Gelatin Emb Embocube 5.02mm 50mg Red - [id number] Implanted:Qty: 1 on 07/03/2022 by Timmy Brunner MD at [facility] Implant Left: Vein [employer] [id number] / / [id number] Description:SHORT GASTRIC VE IN Coil Emb Dona 3.7/Lp .035in 14cm 12mm - [id number] Implanted:Qty: 1 on 07/03/2022 by Timmy Brunner MD at [facility] Implant Left: Vein COOK [id number] / / [id number] Description:SHORT GASTRIC VE IN Coil Concerto Pgla [place] Detach Sys 12mm 30cm - [id number] Implanted:Qty: 1 on 07/03/2022 by Timmy Brunner MD at [facility] Implant Left: Vein EV3 A [employer] [id number] X / / [id number] Description:Short gastric ve in Coil Concerto Nyl [place] Detach Sys 8mm 30cm - [id number] Implanted:Qty: 1 on 07/03/2022 by Timmy Brunner MD at [facility] Implant Left: Vein EV3 A [employer] [id number] / / [id number] Description:SHORT GASTRIC VE IN Coil Concerto Nyl [place] Detach Sys 8mm 30cm - [id number] Implanted:Qty: 1 on 07/03/2022 by Timmy Brunner MD at [facility] Implant Left: Vein EV3 A [employer]EN CO [id number] / / [id number] Description:Short gastric ve in Coil Concerto Nyl [place] Detach Sys 8mm 30cm - [id number] Implanted:Qty: 1 on 07/03/2022 by Timmy Brunner MD at [facility] Implant Left: Vein EV3 A [employer] [id number] / / [id number] Description:Short gastric ve in Coil Concerto Pgla Hel Detach Sys 14mm 40cm - [id number] Implanted:Qty: 1 on 07/03/2022 by Timmy Brunner MD at [facility] Implant Left: Vein EV3 A [employer]EN [employer] [id number] / / [id number] Description:Short gastric ve in Coil Concerto Pgla Hel Detach Sys 14mm 40cm - [id number] Implanted:Qty: 1 on 07/03/2022 by Timmy Brunner MD at [facility] Implant Left: Vein EV3 A COVIDIEN CO [id number] / / [id number] Description:Short gastric ve in Coil Concerto Pgla [place] Detach Sys 14mm 30cm - [id number] Implanted:Qty: 1 on 07/03/2022 by Timmy Brunner MD at [facility] Implant Left: Vein EV3 A [employer] [id number] / / [id number] Description:Short gastric ve in Coil Concerto Pgla [place] Detach Sys 14mm 30cm - [id number] Implanted:Qty: 1 on 07/03/2022 by Timmy Brunner MD at [facility] Implant Left: Vein EV3 A [employer] [id number] / / [id number] Description:Short gastric ve in Coil Concerto Pgla [place] Detach Sys 14mm 30cm - [id number] Implanted:Qty: 1 on 07/03/2022 by Timmy Brunner MD at [facility] Implant Left: Vein EV3 A [employer] [id number] / / [id number] Description:Short gastric ve in Procedures Procedure Name Priority Date/Time Associated Diagnosis Comments FENTANYL, URINE Routine 12/04/2024 2:50 PM EDT Therapeutic drug monitoring URINE DRUG SCREEN Routine 12/04/2024 2:5 0 PM EDT Therapeutic drug monitoring SCANNED - LABS 12/02/2024 SCANNED - LABS [...] Relevant to Health Maintenance Results * (ABNORMAL) Urine Drug Screen - Urine, Clean Catch (12/04/2024 2:50 PM EDT) [facility] THC, Screen, Urine Positive(A) Negative 12/04 8:32 PM EDT [facility] Phencyclidine (PCP), Urine Negative Negative 12/04/2024 8:32 PM EDT [facility] Cocaine Screen, Urine Negative Negative 12/04/2024 8:32 PM EDT [facility] Methamphetamine, Ur Negative Negative 12/04/2024 8:32 PM EDT [facility] Opiate Screen Positive(A) Negative 12/04/2024 8:32 PM EDT [facility] Amphetamine Screen, Urine Negative Negative 12/04/2024 8:32 PM EDT [facility] Benzodiazepine Screen, Urine Negative Negative 12/04/2024 8:32 PM EDT [facility] Tricyclic Antidepressants Screen Negative Negative 12/04/2024 8:32 PM EDT [facility] Methadone Screen, Urine Negative Negative 12/04/2024 8:32 PM EDT [facility] Barbiturates Screen, Urine Negative Negative 12/04/2024 8:32 PM EDT [facility] Oxycodone Screen, Urine Negative Negative 12/04/2024 8:32 PM EDT [facility] Buprenorphine, Screen, Urine Negative Negative 12/04/2024 8:32 PM EDT [facility] Urine Urine specimen obtained by clean catch procedure / Unknown Collection / Unknown 12/04/2024 2:50 PM EDT 12/04/2024 2:54 PM EDT [facility] - 12/04/2024 8:32 PM EDT Cutoff [...] particularly when unconfirmed results are used. us Waldo Otilio Christie PA-C URINE ORDERABLES Final R esult [facility]
[address] [place] [address], * Fentanyl, Urine - Urine, Clean Catch (12/04/2024 2:50 PM EDT) Fentanyl, Urine Negative Negative 12/04/2024 9:15 PM EDT [facility] Urine Urine specimen obtained by clean catch procedure / Unknown Collection / Unknown 12/04/2024 2:50 PM EDT 12/04/2024 2:54 PM EDT Narrative [facility] - 12/04/2024 9:15 PM EDT Negative [...] test, particularly when unconfirmed results are used. Vazquez Yañez Cumberland PA-C URINE ORDERABLES Final R esult [facility]
[address] [place] [address], * LABS SCANNED (12/02/2024) Only the most recent of24 resultswithin the time period is included. Enedina Mcguire APRN LAB BLOOD ORDERABLES Fin al Result * IMAGING SCANNED (10/17/2024) Only the most recent of6 resultswithin the time period is included. Anatomical Region Laterality Modality Radiographic Rachel ging Enedina Mcguire APRN IMG DIAGNOSTIC IMAGING O RDERABLES Final Result from Last 3 Months Insurance [facility] Advance Directives * CPR (Attempt [...] Of Support Discussed With: Patient Care Teams Take Down Inspector Relationship Specialty Start Date End Date Enedina Mcguire APRN [address] [place] [address] PCP - General Nurse Practitioner 10/27/24
--- OUTSIDE RECORDS SUMMARY | 2024-12-08 11:01 | XMS_ITS | Encounter Summary ---
Author Organization [facility] Address [address] [place] [address] Care Team Providers Care Lard Refiner Name Role Phone Enedina Mcguire APRN Primary Care Provider + Encounter Details Date Type Department Care Team ([facility] st Contact Info) Description 10/07/2024 Results Follow-Up [facility] INTER[facility] MEDICINE [address] [place] [address] Enedina Mcguire APRN [address] [place], [place] [id number] Social History Tobacco Use Types Packs/Day Years Used Date Smoking Tobacco: Former Cigarettes 4 20 Passive Smoke Exposure: Past Smokeless Tobacco: Current Comments:MARIJUANA USE ABOUT 2X PER WEEK - reports no use 08-05-2024 Alcohol Use Standard Drinks/Week Comments Not Currently 0 (1 standard drink = 0.6 oz pure alcohol) 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 [facility] Utilities Answer Date Recorded In the past 12 months has [employer], [employer], oil, or water [employer] threatened to shut off services in [...] Depression Severity Measure Score 0 10/02/2022 [facility] [...] GED or equivalent No 07/09/2024 Preferred Language Nauruan 07/09/2024 PHQ-2 Answer Date Recorded Patient Health [...] Description 01/01/2025 2:15 PM EDT Office Visit [facility] PAIN [facility] [address] [phone] Vazquez Christie PA-C [address] [place] [address] documented as of this encounter Visit Diagnoses Not on filedocumented in this encounter Additional Health Concerns Assessment Noted Time PHQ-2 Depression Total Score: 1 12/31/19 24 3:25 PM EDT documented as of this encounter Care Teams Lard Refiner Relationship Specialty Start Date End Date Enedina Mcguire APRN [address] [place] [address] PCP - General Nurse Practitioner 10/27/24 documented as of this encounter
--- OUTSIDE RECORDS SUMMARY | 2024-12-08 11:01 | XMS_ITS | Encounter Summary ---
Author Organization [facility] Address [address] [place] [address] Care Team Providers Care Box Loader Name Role Phone Enedina Mcguire NP Primary Care Provider [phone] Source Comments This information has been disclosed [...] release of HIV test results or diagnoses. [id number] Encounter Details Date Type Department Care Team (Late st Contact Info) Description 10/22/2024 Chart Note [facility] Liver Transplant at [address] [place] [phone] Mary Butler, RN Social History Tobacco Use [...] Recorded In the past 12 months has [employer], gas, oil, or water [employer] threatened to shut off services in your [...] as of this encounter Care Teams Box Loader Relationship Specialty Start Date End Date Enedina Mcguire NP [address] [place] [address] PCP - General Internal Medicine 10/05/24 documented as of this encounter
--- OUTSIDE RECORDS SUMMARY | 2024-12-08 11:01 | XMS_ITS | Encounter Summary ---
Author Organization [facility] Address [address] [place] [address] Care Team Providers Care Cancer Genetics Assistant Name Role Phone Enedina Mcguire NP Primary Care Provider [phone] Source Comments This information has been disclosed [...] release of HIV test results or diagnoses. [id number] Reason for Visit * Reason Comments Appointment Encounter Details Date Type Department Care Team ([facility] [place] st Contact Info) Description 10/24/2024 Telephone [facility] at [address] [place] [phone] Joann Davies MA Appointment Social History Tobacco [...] Recorded In the past 12 months has [employer], [employer], oil, or water [employer] threatened to shut off services in your [...] documented as of this encounter Care Teams Cancer Genetics Assistant Relationship Specialty Start Date End Date Enedina Mcguire NP [address] [place] [address] PCP - General Internal Medicine 10/05/24 documented as of this encounter
--- OUTSIDE RECORDS SUMMARY | 2024-12-08 11:01 | XMS_ITS | Encounter Summary ---
Author Organization [facility] Address [address] [place] [address] Care Team Providers Care Business Analytics Specialist Name Role Phone Enedina Mcguire NP Primary Care Provider [phone] Source Comments This information has been disclosed [...] release of HIV test results or diagnoses. [id number] Encounter Details Date Type Department Care Team (Late st Contact Info) Description 10/22/2024 Telephone [facility] Liver Transplant at [address] [phone] Mary Butler, RN Social History Tobacco Use [...] Recorded In the past 12 months has [employer], gas, oil, or water [employer] threatened to shut off services in your [...] will need ~[address] [facility]. documented in this encounter Plan of Treatment Not on file documented as of this encounter Visit Diagnoses Not on filedocumented in this encounter Additional Health Concerns Infection Onset Date Last Indicated Resolved Time C. difficile 09/09/2024 09/09/2024 10/27/2024 8:30 AM EDT Assessment Noted Time PHQ-9 Depression Total Score: 17 025 11:00 AM EDT documented as of this encounter Care Teams Business Analytics Specialist Relationship Specialty Start Date End Date Enedina Mcguire NP [address] [place] [address] PCP - General Internal Medicine 10/05/24 documented as of this encounter
--- OUTSIDE RECORDS SUMMARY | 2024-12-08 11:01 | XMS_ITS | Encounter Summary ---
Author Organization [facility] Address [address] [place] [address] Care Team Providers Care Sign Builder Name Role Phone Enedina Mcguire NP Primary Care Provider [phone] Source Comments This information has been disclosed [...] release of HIV test results or diagnoses. [id number] Encounter Details Date Type Department Care Team (Late st Contact Info) Description 10/22/2024 Chart Note [facility] Kidney Transplant at [address] [place] [address] Gladis Rainey RN Received most recent [...] Recorded In the past 12 months has [employer], gas, oil, or water [email or web address] threatened to shut off services in your [...] Rainey RN - 10/22/2024 1:51 PM EDT [facility] VERIFICATION CHECK FORM Julien Anderson [id number] [address] initials or answer yes or no next to each item to note you have verified the information for listing on this patient in [facility]. First Name nh Last Name ma Middle Initial N/a Date of ma SS# ma Center ID# (MRN) ma ABO x 2 ma / ma I have verified the two (2) blood type results for this candidate are the same blood type and matchthe results reported in UNet. 2728 date [facility] N/a 2728 date [facility] N/a If patient is not on Dialysis Verify date of GFR and GFR 19 on 08/13/24 *Meets CKD Criteria for [facility] listing today with today eGFR 21 on 10/22/24 *Kidney checked in Liver registration as additional organ Listing date in [facility] match nh Listing date notification letter match [facility] Updated consent on file [x] Yes [] [...] Team documentation Nephrology within the last year ma dobie worker within the last year ma Dietitian within the last year ma Finance within the last year ma Pharmacy within the last year ma Initial surgery assessment ma RN coordinator documentation nh * Terra Pyle RN - 10/22/2024 1:51 PM EDT [facility] VERIFICATION CHECK FORM Julien Anderson [id number] [address]s or answer yes or [...] UNet. 2727 date [facility] N/A 2727 date [facility] N/A If patient is not on Dialysis Verify date of GFR and GFR 19 on 08/13/24 Verified that liver was checked on kidney registration Verified that kidney was checked on liver registration Listing date in [facility] match MW Listing date notification letter match [facility] and [facility] Updated consent on file [x] Yes [...] documentation Nephrology within the last year MW dobie worker within the last year MW Dietitian [...] documented as of this encounter Care Teams Sign Builder Relationship Specialty Start Date End Date Enedina Mcguire NP [address] [place] [address] PCP - General Internal Medicine 10/05/24 documented as of this encounter
--- OUTSIDE RECORDS SUMMARY | 2024-12-08 11:01 | XMS_ITS | Encounter Summary ---
Author Organization Healthcare Address [address] [place] [address] Care Team Providers Care Brick Paving Checker Name Role Phone Jony Conde MD Primary Care Provider [phone] Lj Tapia TIN POURER Unavailable [phone] Enedina Mcguire TIN POURER Primary Care Provider + Nuria Fall EQUIPMENT SERVICES ASSOCIATE Unavailable Unavaila ble Encounter Details Date Type Department Care Team (Late st Contact Info) Description 07/02/2022 Orders Only External Location [address] [place] [phone] Provider, External Social History Tobacco Use Types [...] PM EDT Office [facility] [place] [address] [facility], [address] [place] [address] Vincent Braga MD [address] [facility] [address] [place] [address] documented as of this encounter Procedures Procedure [...] on filedocumented in this encounter Care Teams Brick Paving Checker Relationship Specialty Start Date End Date Jony Cnode MD [address] [place] [address] [address] [place] [address] PCP - General 07/18/22 12/03/22 Enedina Mcguire APRN [address] [place] [address] PCP - General 12/04/22 Lj Tapia APRN [facility] [place] [address] Referring Physician Gastroenterology 07/18/22 Nuria Fall LPN [facility] TCM Nurse 07/24/24 08/23/24 documented as of this encounter
--- OUTSIDE RECORDS SUMMARY | 2024-12-08 11:01 | XMS_ITS | Encounter Summary ---
[facility] Address [address] [place] [address] Care Team Providers Care Supervisor Fertilizer Processing Name Role Phone Enedina Mcguire APRN Primary Care Provider + Reason for Visit * Reason Onset Date Comments CALLBACK 10/27/2024 Encounter Details Date Type Department Care Team ([facility] st Contact Info) Description 10/27/2024 Telephone [facility] INTERNAL MEDICINE [address] [place] [address] Enedina Mcguire APRN [address] [place] [address] CALLBACK Social History Tobacco Use Types Packs/Day Years Used Date Smoking Tobacco: Former Cigarettes 4 20 Passive Smoke Exposure: Past Smokeless Tobacco: Current Comments:MARIJUANA USE ABOUT 2X PER WEEK - reports no use 08-05-2024 Alcohol Use Standard Drinks/Week Comments Not Currently 0 (1 standard drink = 0.6 oz pure alcohol) 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 [facility] Utilities Answer Date Recorded In the past 12 months has [employer], [employer], oil, or water [employer] threatened to [...] Brief Depression Severity Measure Score 0 10/02/2022 [facility] - Occupational Stress Questionnaire Answer Date [...] GED or equivalent No 07/09/[address] Helen[place] 07/09/2024 PHQ-2 Answer Date Recorded Patient Health [...] Relationship: Emergency Contact Best call back number: [phone] What was the call regarding: WOULD LIKE A CALL BACK FROM FRANCESCA MCGUIRE HERSELF. SHE WOULD LIKE TO DISCUSS HER 'S TRANSPLANT LIST STATUS. THEY HAVE SOME GOOD NEWS TO REPORT. documented in this encounter Plan of Treatment Upcoming Encounters Date Type Department Care Team (Late st Contact Info) Description 01/01/2025 2:15 PM EDT Office Visit [facility] PAIN MA[facility]GEMENT [address] [facility] [address] [place] [address] Vazquez Christie PA-C [address] [place] [phone] documented as of this encounter Visit Diagnoses Not on filedocumented in this encounter Additional Health Concerns Assessment Noted Time PHQ-2 Depression Total Score: 1 12/31/19 24 3:25 PM EDT documented as of this encounter Care Teams Supervisor Fertilizer Processing Relationship Specialty Start Date End Date Enedina Mcguire APRN [address] [place] [address] PCP - General Nurse Practitioner 10/27/24 documented as of this encounter
--- OUTSIDE RECORDS SUMMARY | 2024-12-08 11:01 | XMS_ITS | Encounter Summary ---
[facility] Address [address] [place] [address] Care Team Providers Care Respiratory Therapy Instructor Name Role Phone Soco Patel APRN Primary Care Provid er Reason for Visit * Reason Onset Date Comments New Med Request 10/21/2024 Encounter Details Date Type Department Care Team ([facility] st Contact Info) Description 10/21/2024 Telephone [facility] INTERNAL MEDICINE [address] [place] [address] Enedina Mcguire APRN [address] [place] [address] New Med Request Social History Tobacco Use Types Packs/Day Years Used Date Smoking Tobacco: Former Cigarettes 4 20 Passive Smoke Exposure: Past Smokeless Tobacco: Current Comments:MARIJUANA USE ABOUT 2X PER WEEK - reports no use 08-05-2024 Alcohol Use Standard Drinks/Week Comments Not Currently 0 (1 standard drink = 0.6 oz pure alcohol) 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 [facility] Utilities Answer Date Recorded In the past 12 months has [employer], gas, oil, or water [employer] threatened to shut off services in your [...] Depression Severity Measure Score 0 10/02/2022 [facility] - Occupational Stress Questionnaire [...] GED or equivalent No 07/09/2024 Preferred Language Algerian 07/09/2024 PHQ-2 Answer Date Recorded Patient Health [...] Anderson Relationship: Self Best call back number: [phone] What medication are you requesting: TORSEMIDE What [...] is your preferred pharmacy and phone number: [facility]- [place], [place] - [address] - [phone] [facility] [phone] FX Additional notes: PATIENT STATES HE HAS [...] Description 01/01/2025 2:15 PM EDT Office Visit [facility] PAIN [facility]EMENT [address] [facility] [address] [place] [address] Vazquez Chrisite PA-C [address] [facility] [address] [place] [address] documented as of this encounter Visit Diagnoses Not on filedocumented in this encounter Additional Health Concerns Assessment Noted Time PHQ-2 Depression Total Score: 1 12/31/19 24 3:25 PM EDT documented as of this encounter Care Teams Respiratory Therapy Instructor Relationship Specialty Start Date End Date Soco Patel APRN [address] [facility] [address] [place] [address] PCP - General Family Medicine 10/22/24 10/26/24 documented as of this encounter
--- OUTSIDE RECORDS SUMMARY | 2024-12-08 11:01 | XMS_ITS | Encounter Summary ---
Author Organization Healthcare Address [address] [place] [address] Care Team Providers Care Women'S Garment Fitter Name Role Phone Jony Conde MD Primary Care Provider [phone] Lj Tapia GAS BOOSTER ENGINEER Unavailable [phone] Enedina Mcguire GAS BOOSTER ENGINEER Primary Care Provider + Nuria Fall LAMINATOR Unavailable Unavaila ble Encounter Details Date Type Department Care Team (Late st Contact Info) Description 07/04/2022 Orders Only External Location [address] [place] [address] Presley Montes De Oca MD [address] [facility] 302 [place], [place] [id number] Social History Tobacco Use Types Packs/Day Years [...] PM EDT [facility] [address], [address] [place] [address] Vincent Braga MD [address] [facility] [address] [place] [address] documented as of this encounter Procedures Procedure [...] on filedocumented in this encounter Care Teams Women'S Garment Fitter Relationship Specialty Start Date End Date Jony Conde MD [address] [place] [address] [address] [place] [address] PCP - General 07/18/22 12/03/22 Enedina Mcguire APRN [address] [place] [address] PCP - General 12/04/22 Lj Tapia APRN [address] [place] [address] Referring Physician Gastroenterology 07/18/22 Nuria Fall LPN [facility] TCM Nurse 07/24/24 08/23/24 documented as of this encounter
--- OUTSIDE RECORDS SUMMARY | 2024-12-08 11:01 | XMS_ITS | Encounter Summary ---
[facility] Address [address] [place] [address] Care Team Providers Care Separations Scientist Name Role Phone Enedina Mcguire APRN Primary Care Provider + Encounter Details Date Type Department Care Team ([facility] st Contact Info) Description 10/07/2024 Results Follow-Up [facility] INTERNAL MEDICINE [address] [place] [address] Enedina Mcguire APRN [address] [place], [place] [id number] Social History Tobacco Use Types Packs/Day Years Used Date Smoking Tobacco: Former Cigarettes 4 20 Passive Smoke Exposure: Past Smokeless Tobacco: Current Comments:MARIJUANA USE ABOUT 2X PER WEEK - reports no use 08-05-2024 Alcohol Use Standard Drinks/Week Comments Not Currently 0 (1 standard drink = 0.6 oz pure alcohol) 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 [facility] Utilities Answer Date Recorded In the past 12 months has [employer], [employer], oil, or water [employer] threatened to shut off services in your [...] Brief Depression Severity Measure Score 0 10/02/2022 [facility]at ional Health - [...] GED or equivalent No 07/09/2024 Preferred Language Botswanan 07/09/2024 PHQ-2 Answer Date Recorded Patient Health [...] 2:15 PM EDT Office Visit [facility] PAIN MA[facility]GEMENT [address] [address] Vazquez Christie PA-C [address] [place] [address] documented as of this encounter Visit Diagnoses Not on filedocumented in this encounter Additional Health Concerns Assessment Noted Time PHQ-2 Depression Total Score: 1 12/31/19 24 3:25 PM EDT documented as of this encounter Care Teams Separations Scientist Relationship Specialty Start Date End Date Enedina Mcguire APRN [address] [place] [address] PCP - General Nurse Practitioner 10/27/24 documented as of this encounter
--- OUTSIDE RECORDS SUMMARY | 2024-12-08 11:01 | XMS_ITS | Encounter Summary ---
Author Organization Healthcare Address [address] [place] [address] Care Team Providers Care Satellite Project Site Monitor Name Role Phone Jony Conde MD Primary Care Provider [phone] Lj Tapia MANAGER ANALYSIS Unavailable [phone] Enedina Mcguire MANAGER ANALYSIS Primary Care Provider + Nuria Fall PROPERTY ADMINISTRATOR Unavailable Unavaila ble Encounter Details Date Type Department Care Team (Late st Contact Info) Description 07/03/2022 Orders Only External Location [address] [place] [address] Presley Montes De Oca MD 17[address] [facility] 302 [place], [place] [address] Social History Tobacco Use Types Packs/Day Years [...] PM EDT [facility] [address], [address] [place] [address] Vincent Braga MD [address] [facility] [address] [place] [address] documented as of this encounter Procedures Procedure [...] on filedocumented in this encounter Care Teams Satellite Project Site Monitor Relationship Specialty Start Date End Date Jony Conde MD [address] [place] [address] [address] [place] [address] PCP - General 07/18/22 12/03/22 Enedina Mcguire APRN [address] [place] [address] PCP - General 12/04/22 Lj Tapia APRN [address] [place] [address] Referring Physician Gastroenterology 07/18/22 Nuria Fall LPN [facility] TCM Nurse 07/24/24 08/23/24 documented as of this encounter
--- OUTSIDE RECORDS SUMMARY | 2024-12-08 11:01 | XMS_ITS | Encounter Summary ---
Author Organization [facility] Address [address] [place] [address] Care Team Providers Care Estimator And Drafter Name Role Phone Enedina Mcguire NP Primary Care Provider [phone] Source Comments This information has been disclosed [...] release of HIV test results or diagnoses. [id number] Encounter Details Date Type Department Care Team (Late st Contact Info) Description 10/22/2024 Chart Note [facility] Liver Transplant at [address] [place] [address] Faraz Carballo RN 2nd ABO verified for [...] In the past 12 months has [employer], gas, oil, or water [employer] threatened to shut off services in [...] documented as of this encounter Care Teams Estimator And Drafter Relationship Specialty Start Date End Date Enedina Mcguire NP [address] [place] [address] PCP - General Internal Medicine 10/05/24 documented as of this encounter
--- OUTSIDE RECORDS SUMMARY | 2024-12-08 11:01 | XMS_ITS | Encounter Summary ---
Author Organization [facility] Address [address] [place] [address] Care Team Providers Care Registered Nurse Post Partum Name Role Phone Soco Patel APRN Primary [...] alcohol) 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 [facility] Utilities Answer Date Recorded In the past 12 months has [employer], gas, oil, or water [employer] threatened to shut off services in your [...] Brief Depression Severity Measure Score 0 10/02/2022 [facility] of Occupat ional Health - Occupational Stress [...] GED or equivalent No 07/09/2024 Preferred Language Paraguayan 07/09/2024 PHQ-2 Answer Date Recorded Patient Health [...] Description 01/01/2025 2:15 PM EDT Office Visit [facility] PAIN MANAGEMENT [address] [facility] [address] [place] [address] Vazquez Christie PA-C [address] [place] [address] [address] [place] [id number] documented as of this encounter Visit Diagnoses Not on filedocumented in this encounter Additional Health Concerns Assessment Noted Time PHQ-2 Depression Total Score: 1 12/31/19 24 3:25 PM EDT documented as of this encounter Care Teams Registered Nurse Post Partum Relationship Specialty Start Date End Date Soco Patel APRN 1210 [facility] [address] [facility] 2[address] [place] [address] PCP - General Family Medicine 10/22/24 10/26/24 documented as of this encounter
--- OUTSIDE RECORDS SUMMARY | 2024-12-08 11:01 | XMS_ITS | Encounter Summary ---
Author Organization [facility] Address [address] [place] [address] Care Team Providers Care Unindentured Apprentice Name Role Phone Enedina Mcguire NP Primary Care Provider [phone] Source Comments This information has been disclosed [...] release of HIV test results or diagnoses. [id number] Health Encounter Details Date Type Department Care Team (Late st Contact Info) Description 10/22/2024 Telephone [facility] Psychiatry Transplant at [facility] [address] [facility] [address] [place] [address] Lizeth Warren PsyD [address] [facility] [address] [place] [address] Social History Tobacco Use Types Packs/Day Years Used Date Smoking Tobacco: Former Cigarettes Smokeless Tobacco: Current Alcohol Use Standard Drinks/Week Comments Yes 0 (1 standard drink = 0.6 oz pure alcohol) History of alcohol abuse, reports no use in 3 week- typically endorses use as 4 glasses of wine a days Utilities Answer Date Recorded In the past 12 months has [employer], gas, oil, or water [employer] threatened to shut off services in your [...] appts. Went to voicemail. Left vm referencing [employer] message with availability times listed. Encouraged patient [...] documented as of this encounter Care Teams Unindentured Apprentice Relationship Specialty Start Date End Date Enedina Mcguire NP [address] [place] [address] PCP - General Internal Medicine 10/05/24 documented as of this encounter
--- OUTSIDE RECORDS SUMMARY | 2024-12-08 11:01 | XMS_ITS | Encounter Summary ---
[facility] Organization [facility] Address [address] [place] [address] Care Team Providers Care Flight Engineer Name Role Phone Enedina Mcguire APRN Primary Care Provider + Reason for Visit * Reason Onset Date Comments DR SONG - RX REFILL 10/20/2024 Encounter Details Date Type Department Care Team (Late st Contact Info) Description 10/20/2024 Telephone [facility] PAIN MA[facility]GEMENT [address] [address] Tye Song MD 1760 [facility] [address] [place] [address] DR SONG - RX REFILL Social History Tobacco Use Types Packs/Day Years Used Date Smoking Tobacco: Former Cigarettes 4 20 Passive Smoke Exposure: Past Smokeless Tobacco: Current Comments:MARIJUANA USE ABOUT 2X PER WEEK - reports no use 08-05-2024 Alcohol Use Standard Drinks/Week Comments Not Currently 0 (1 standard drink = 0.6 oz pure alcohol) 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 [facility] Utilities Answer Date Recorded In the past 12 months has [employer], gas, oil, or water [employer] threatened to shut off services in your [...] Brief Depression Severity Measure Score 0 10/02/2022 [facility] - Occupational Stress Questionnaire Answer [...] GED or equivalent No 07/09/2024 Preferred Language Singaporean 07/09/2024 PHQ-2 Answer Date Recorded Patient Health [...] HOURS Pharmacy where request should be sent: [facility] [place] [place] - [address] [phone] [facility] [phone] FX [phone] Last office visit with prescribing clinician: 08/06/2023 [...] Description 01/01/2025 2:15 PM EDT Office Visit [facility] PAIN MANAGEMENT [address] [address] Vazquez Christie PA-C [address] [address] documented as of this encounter Visit Diagnoses Not on filedocumented in this encounter Additional Health Concerns Assessment Noted Time PHQ-2 Depression Total Score: 1 12/31/19 24 3:25 PM EDT documented as of this encounter Care Teams Flight Engineer Relationship Specialty Start Date End Date Enedina Mcguire APRN [address] [place] [address] PCP - General Nurse Practitioner 09/04/22 10/21/24 documented as of this encounter
--- OUTSIDE RECORDS SUMMARY | 2024-12-08 11:01 | XMS_ITS | Encounter Summary ---
Author Organization [facility] Address [address] [place] [address] Care Team Providers Care Line Walker Name Role Phone Enedina Mcguire NP Primary Care Provider [phone] Source Comments This information has been disclosed [...] release of HIV test results or diagnoses. [id number] Encounter Details Date Type Department Care Team (Late st Contact Info) Description 10/22/2024 [facility] Note [facility] Liver Transplant at [address] [place] [address] Mary Butler, RN [facility] VERIFICATION CHECK FORM [...] Recorded In the past 12 months has [employer], [employer], oil, or water [employer] threatened to shut off services in your [...] Multidisciplinary Team documentation Initial Hepatology assessment sb compound worker within the last year sb Dietitian [...] Multidisciplinary Team documentation Initial Hepatology assessment nlc compound worker within the last year nlc Dietitian [...] documented as of this encounter Care Teams Line Walker Relationship Specialty Start Date End Date Enedina Mcguire NP [address] [place], [place] [id number] PCP - General Internal Medicine 10/05/24 documented as of this encounter
--- OUTSIDE RECORDS SUMMARY | 2024-12-08 11:01 | XMS_ITS | Encounter Summary ---
Author Organization [facility] Address [address] [place] [address] Care Team Providers Care Concrete Bucket Hooker Name Role Phone Enedina Mcguire NP Primary Care Provider [phone] Source Comments This information has been disclosed [...] release of HIV test results or diagnoses. [id number] [facility] Encounter Details Date Type Department Care Team (Late st Contact Info) Description 10/25/2024 Telephone [facility] Liver Transplant at [address] [address] Krissy Crowell RN Social History Tobacco Use [...] Recorded In the past 12 months has [employer], gas, oil, or water [employer] threatened to shut off services in your [...] granted: N/A OPO: CHACHA OPO Contact: Kiet [phone] Recent illnesses (surgeon aware) [x] Yes [] [...] to bring equipment or solution to [facility]. They will get supplies from [...] Notifications: Department Phone Comments Time/Name Capacity Management [phone] Notified of patient's pending TXP ORGANS: Liver Kidney Time: Spoke to: OR [phone] OR scheduled for: per Dr. Domínguez Recipient in the OR time 10/25/2024 @ 2200 Acute donor Risk (according to OPTN policy) YES (HCV, HBV, HIV, COVID) Notified Donor is DCD Time: 1145, spoke to Faraz OR director of event sales: Gladys RAMIREZ ORGAN Time: yes 1155 BLOOD BANK [phone] For Liver and Heart only Spoke to [facility] 1217 Nursing Tube Washer [phone] For delayed call in [facility] at 1158 PACU or Sameday [phone] Delayed call in: If recipient OR is 2 hrs or less from admission, call PACU/Sameday (basedon where nursing fiberglass pipe covering supervisor assigns patient) Abdominal Transplant 8CCP [phone] Transfer of care reported for abdominal txp Notified of dialysis type and last session if applicable Time: 8CCP director of event sales: SICU [phone] Notify about abdominal txp admissions Time: 1215 SICU director of event sales: Aleks Transplant Surgery Resident/PA QGenda Time: 1219 Spoke to: Dr. Corbett Transplant Surgery Fellow QGenda Time: 1200 Spoke to: Sveta Mojica MD Transplant Research Team [phone] Time: 1218 Spoke to: Macey If applicable, Dialysis Unit EMR Time: Spoke to: Pharmacy IV Room [phone] Liver Only Contact pharmacy to alert that HBIG will be needed when all the following are present: Donor: *HBsAg negative *HBV DNA/KIANA negative Recipient: *HBsAg positive *HBV DNA is detectable on most recent check Time: Spoke to: Heart Transplant CVICU [phone] Transfer of care reported for heart txp Time: CVICU director of event sales: Email notification to Transplant Team(s) and OR director of event sales. [Send the following information below to the [...] Venoveno bypass: No Donor info: Donor ID: [id number] Match ID: [id number] Anti-HBc: Negative HBV KIANA: Negative HBsAg: Negative [...] documented as of this encounter Care Teams Concrete Bucket Hooker Relationship Specialty Start Date End Date Enedina Mcguire NP [address] [place] [address] PCP - General Internal Medicine 10/05/24 documented as of this encounter
--- OUTSIDE RECORDS SUMMARY | 2024-12-08 11:01 | XMS_ITS | Encounter Summary ---
Author Organization [facility] Address [address] [place] [address] Care Team Providers Care Human Factors Specialist Name Role Phone Enedina Mcguire APRN Primary Care Provider + Encounter Details Date Type Department Care Team ([facility] st Contact Info) Description 10/17/2024 Telephone [facility] INTERNAL MEDICINE [address] [place] [address] Enedina Mcguire APRN [address] [place] [address] Social History Tobacco Use Types Packs/Day Years Used Date Smoking Tobacco: Former Cigarettes 4 20 Passive Smoke Exposure: Past Smokeless Tobacco: Current Comments:MARIJUANA USE ABOUT 2X PER WEEK - reports no use 08-05-2024 Alcohol Use Standard Drinks/Week Comments Not Currently 0 (1 standard drink = 0.6 oz pure alcohol) 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 [facility] Utilities Answer Date Recorded In the past 12 months has [employer], [employer], oil, or water [employer] threatened to shut off services in your [...] Brief Depression Severity Measure Score 0 10/02/2022 [facility] - Occupational Stress Questionnaire Answer Date [...] PM EDT PATIENT WAS JUST DISCHARGE FROM [facility] AND THEY HAVE PLACED THE PATIENT ON OXY 5MG. THE HOSPITAL ONLY GAVE THE PATIENT 3 DAYS OF MEDS. PATIENT IS REQUESTING A REFILL TO GET HIM TO THE APPT WITH PCP ON 10/27. PHARM: [facility] [place] [phone] CALL BACK: [phone] documented in this encounter Plan of Treatment Upcoming Encounters Date Type Department Care Team (Late st Contact Info) Description 01/01/2025 2:15 PM EDT Office Visit [facility] PAIN MANAGEMENT [address] [address] Vazquez Christie PA-C [address] [address] documented as of this encounter Visit Diagnoses Not on filedocumented in this encounter Additional Health Concerns Assessment Noted Time PHQ-2 Depression Total Score: 1 12/31/19 24 3:25 PM EDT documented as of this encounter Care Teams Human Factors Specialist Relationship Specialty Start Date End Date Enedina Mcguire APRN [address] [place] [address] PCP - General Nurse Practitioner 10/27/24 documented as of this encounter
--- OUTSIDE RECORDS SUMMARY | 2024-12-08 11:01 | XMS_ITS | Encounter Summary ---
Author Organization [facility] Address [address] [place] [address] Care Team Providers Care Earth Burner Name Role Phone Clemons, Lj Nova APRN Unavailable [phone] Enedina Mcguire APRN Primary Care Provider + Encounter Details Date Type Department Care Team ([facility] st Contact Info) Description 11/27/2024 Telephone [facility] Nephrology, Bone & Mineral Metabolism [address], [address] [place] [address] Chelsy Villanueva Social History Tobacco [...] often do you attend chur ch or jehovah's witness services? Patient unable to answer 07/14/2024 Do you belong to any clubs o r organizations such as jehovah's witness groups, unions, fraternal or athletic groups, or [...] Questionnaire-2 Score 2 09/29/2024 [facility] - Occupational Stress Questionnaire Answer Date [...] drink first t deborah in the morning (EYE-CONTENT PUBLISHER) to steady your nerves or to get [...] now s/p transplant can follow with transplant head of data, please cancel appt. documented in this encounter Plan of Treatment Upcoming Encounters Date Type Department Care Team (Late st Contact Info) Description 01/08/2025 3:20 PM EDT Office [facility] [place] [address], [address] [place] [address] Vincent Braga MD [address] [place] [address] documented as of this encounter Visit Diagnoses [...] documented as of this encounter Care Teams Earth Burner Relationship Specialty Start Date End Date Enedina Mcguire APRN [address] [place] [address] PCP - General 12/04/22 Lj Tapia APRN [address] [place] [address] Referring Physician Gastroenterology 07/18/22 documented as of this encounter
--- OUTSIDE RECORDS SUMMARY | 2024-12-08 11:01 | XMS_ITS | Encounter Summary ---
[facility] [address] [place] [address] Care Team Providers Care Staff Veterinarian Name Role Phone Enedina Mcguire APRN Primary Care Provider + Reason for Visit * Reason Onset Date Comments Med Management 10/20/2024 Encounter Details Date Type Department Care Team ([facility] st Contact Info) Description 10/20/2024 Telephone [facility] INTERNAL MEDICINE [address] [place] [address] Enedina Mcguire APRN [address] [place] [address] Med Management Social History Tobacco Use Types Packs/Day Years Used Date Smoking Tobacco: Former Cigarettes 4 20 Passive Smoke Exposure: Past Smokeless Tobacco: Current Comments:MARIJUANA USE ABOUT 2X PER WEEK - reports no use 08-05-2024 Alcohol Use Standard Drinks/Week Comments Not Currently 0 (1 standard drink = 0.6 oz pure alcohol) 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 [facility] Utilities Answer Date Recorded In the past 12 months has [employer], [employer], oil, or water [employer] threatened to shut off services in your [...] Brief Depression Severity Measure Score 0 10/02/2022 [facility] - Occupational Stress Questionnaire Answer [...] GED or equivalent No 07/09/2024 Preferred Language Eritrean 07/09/2024 PHQ-2 Answer Date Recorded Patient Health [...] Anderson Relationship: Self Best call back number: [phone] What medication are you requesting: POTASSIUM CHLORIDE 20 MEQ 2 TIMES A DAY SODIUM BICARB CIPROFLAXIN 500 MG DAILY URSODIAL 200 MG CAPSULE TORSEMIDE 20 MG ONCE DAILY OXYCODONE 5 MG ONE TIME EVERY SIX HOURS NEEDED If a prescription is needed, what is your preferred pharmacy and phone number: [facility] [place] [facility] [address] [phone] [facility] [phone] Additional notes: PATIENT IS CURRENTLY UNABLE TO COME IN FOR AN APPOINTMENT, BUT NEEDS THESE MEDICATIONS. documented in this encounter Plan of Treatment Upcoming Encounters Date Type Department Care Team (Late st Contact Info) Description 01/01/2025 2:15 PM EDT Office Visit [facility] PAIN [facility]EMENT [address] [facility] [address] [place] [address] Vazquez Christie PA-C [address] [address] documented as of this encounter Visit Diagnoses Diagnosis Acquired hypothyroidism Unspecified hypothyroidism Secondary esophageal varices without bleeding documented in this encounter Additional Health Concerns Assessment Noted Time PHQ-2 Depression Total Score: 1 12/31/19 24 3:25 PM EDT documented as of this encounter Care Teams Staff Veterinarian Relationship Specialty Start Date End Date Enedina Mcguire APRN [address] [place] [address] PCP - General Nurse Practitioner 09/04/22 10/21/24 documented as of this encounter
--- OUTSIDE RECORDS SUMMARY | 2024-12-08 11:01 | XMS_ITS | Encounter Summary ---
Author Organization [facility] Address [facility] [place] [address] Care Team Providers Care Extruding Department Supervisor Name Role Phone Enedina Mcguire NP Primary Care Provider [phone] Source Comments This information has been disclosed [...] release of HIV test results or diagnoses. [id number] Health Encounter Details Date Type Department Care Team (Late st Contact Info) Description 10/22/2024 Orders Only [facility] [address] [place] [address] Abdulkadir Gaspar MD 3[address] [facility] [address] [place] [address] Social History Tobacco Use Types Packs/Day Years Used Date Smoking Tobacco: Former Cigarettes Smokeless Tobacco: Current Alcohol Use Standard Drinks/Week Comments Yes 0 (1 standard drink = 0.6 oz pure alcohol) History of alcohol abuse, reports no use in 3 week- typically endorses use as 4 glasses of wine a days Utilities Answer Date Recorded In the past 12 months has [employer], gas, oil, or water company threatened to [...] LAB BLOOD ORDERABLES Final Resul t [facility] [address] [place] [address] documented in this encounter Visit Diagnoses Not on filedocumented in this encounter Additional Health Concerns Infection Onset Date Last Indicated Resolved Time C. difficile 09/09/2024 09/09/2024 10/27/2024 8:30 AM EDT Assessment Noted Time PHQ-9 Depression Total Score: 17 025 11:00 AM EDT documented as of this encounter Care Teams Extruding Department Supervisor Relationship Specialty Start Date End Date Enedina Mcguire NP [address] [place] [address] PCP - General Internal Medicine 10/05/24 documented as of this encounter
--- OUTSIDE RECORDS SUMMARY | 2024-12-08 11:01 | XMS_ITS | Encounter Summary ---
Author Organization [facility] Address [address] [place] [address] Care Team Providers Care Net Web Application Developer Name Role Phone Enedina Mcguire APRN Primary Care Provider + Reason for Visit * Reason Comments Med Refill Encounter Details Date Type Department Care Team (Late st Contact Info) Description 09/12/2022 Refill [facility] GASTROENTEROLOGY [address] [facility] [address] [place] [address] Lj Tapia APRN [address] [place] [address] Social History Tobacco Use Types Packs/Day Years [...] or training? Not on file Preferred Language Grenadian 07/03/2022 Sex and Gender Information Value Date Recorded Sex Assigned at Male 08/20/2024 8:28 PM EDT Legal Sex Male 7:45 AM EDT Gender Identity Not on file Sexual Orientation Not on file documented as of this encounter Plan of Treatment Upcoming Encounters Date Type Department Care Team (Late st Contact Info) Description 01/01/2025 2:15 PM EDT Office Visit [facility] PAIN [facility]GEMENT [address] [address] Vazquez Christie PA-C [address] [place] [address] documented as of this encounter Visit Diagnoses Not on filedocumented in this encounter Care Teams Net Web Application Developer Relationship Specialty Start Date End Date Enedina Mcguire APRN [address] [place] [address] PCP - General Nurse Practitioner 10/27/24 documented as of this encounter
--- OUTSIDE RECORDS SUMMARY | 2024-12-08 11:01 | XMS_ITS | Encounter Summary ---
[facility] Address [address] [place] [address] Care Team Providers Care Tractor Trailer Driver Name Role Phone Enedina Mcguire APRN Primary Care Provider + Reason for Visit * Reason Comments Med Refill Encounter Details Date Type Department Care Team (Late st Contact Info) Description 07/20/2022 Refill [facility] GASTROENTEROLOGY 1780 [facility] [address] [place] [address] Lj Tapia APRN [address] [place] [address] Secondary esophageal varices without bleeding Social History [...] or training? Not on file Preferred Language Maltese 07/03/2022 Sex and Gender Information Value Date Recorded Sex Assigned at Male 08/20/2024 8:28 PM EDT Legal Sex Male 7:45 AM EDT Gender Identity Not on file Sexual Orientation Not on file documented as of this encounter Plan of Treatment Upcoming Encounters Date Type Department Care Team (Late st Contact Info) Description 01/01/2025 2:15 PM EDT Office [facility] 3000 [facility] [address] [place] [address] Vazquez Christie PA-C [address] [place] [address] documented as of this encounter Visit Diagnoses Diagnosis Secondary esophageal varices without bleeding documented in this encounter Additional Health Concerns Infection Onset Date Last Indicated Resolved Time COVID Screen (preop/placement) 07/28/2022 07/28/2022 07/29/2022 12:00 AM EDT documented as of this encounter Care Teams Tractor Trailer Driver Relationship Specialty Start Date End Date Enedina Mcguire APRN [address] [place] [address] PCP - General Nurse Practitioner 10/27/24 documented as of this encounter
--- OUTSIDE RECORDS SUMMARY | 2024-12-08 11:01 | XMS_ITS | Encounter Summary ---
Author Organization [facility] Address [address] [place] [address] Care Team Providers Care Security Operations Manager Name Role Phone Jony Conde MD Primary Care Provider [phone] Lj Tapia EDUCATION TEACHER Unavailable [phone] Enedina Mcguire EDUCATION TEACHER Primary Care Provider + Nuria Flal AIRLINE OPERATIONS AGENT Unavailable Unavaila ble Encounter Details Date Type Department Care Team (Late st Contact Info) Description 07/04/2022 Orders Only External Location [address] [place] [address] Presley Montes De Oca MD 1720 [facility] [address] [place], [place] [id number] Social History Tobacco Use Types Packs/Day Years [...] PM EDT [facility] [address] [place] [address] Vincent Braga MD [address] [facility] [address] [place] [address] documented as of this encounter Procedures Procedure [...] on filedocumented in this encounter Care Teams Security Operations Manager Relationship Specialty Start Date End Date Jony Conde MD [address] [facility] [address] [place] [address] PCP - General 07/18/22 12/03/22 Enedina Mcguire APRN [address] [place] [address] PCP - General 12/04/22 Lj Tapia APRN [address] [place] [address] Referring Physician Gastroenterology 07/18/22 Nuria Fall LPN [facility] TCM Nurse 07/24/24 08/23/24 documented as of this encounter
--- OUTSIDE RECORDS SUMMARY | 2024-12-08 11:01 | XMS_ITS | Encounter Summary ---
[facility] Address [address] [place] [address] Care Team Providers Care Rn Dermatology Name Role Phone Enedina Mcguire APRN Primary Care Provider + Reason for Visit * Reason Onset Date Comments Med Refill 10/20/2024 Encounter Details Date Type Department Care Team (Late st Contact Info) Description 10/20/2024 Refill [facility] INTERNAL MEDICINE [address] [place] [address] Enedina Mcguire APRN [address] [place] [address] Hepatic encephalopathy; Acquired hypothyroidism; Secondary [...] alcohol) 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 [facility] Utilities Answer Date Recorded In the past 12 months has [employer], gas, oil, or water [employer] threatened to shut off services in your [...] Brief Depression Severity Measure Score 0 10/02/2022 [facility] - Occupational Stress Questionnaire Answer [...] GED or equivalent No 07/09/2024 Preferred Language Malawian 07/09/2024 PHQ-2 Answer Date Recorded Patient Health [...] Anderson Relationship: Self Best call back number: [phone] Requested Prescriptions: Requested Prescriptions Pending Prescriptions Disp [...] Daily. Pharmacy where request should be sent: [facility] [address] [place], [place] [address] [phone] [facility] [phone] FX Last office visit with prescribing clinician: [...] 01/01/2025 2:15 PM EDT Office Visit [facility] PAIN MANAGEMENT [address] [address] Vazquez Christie PA-C [address] [place] [address] documented as of this encounter Visit Diagnoses Diagnosis Hepatic encephalopathy Acquired hypothyroidism Unspecified hypothyroidism Secondary esophageal varices without bleeding documented in this encounter Additional Health Concerns Assessment Noted Time PHQ-2 Depression Total Score: 1 12/31/19 24 3:25 PM EDT documented as of this encounter Care Teams Rn Dermatology Relationship Specialty Start Date End Date Enedina Mcguire APRN [address] [place] [address] PCP - General Nurse Practitioner 09/04/22 10/21/24 documented as of this encounter
--- OUTSIDE RECORDS SUMMARY | 2024-12-08 11:02 | XMS_ITS | Encounter Summary ---
Author Organization [facility] Address [address] [place] [address] Care Team Providers Care Dry Cleaning Supervisor Name Role Phone Enedina Mcguire APRN Primary Care Provider + Encounter Details Date Type Department Care Team (Latest Contact Info) Description 12/04/2024 Travel Social History Tobacco Use Types Packs/Day Years Used Date Smoking Tobacco: Former Cigarettes 4 20 Passive Smoke Exposure: Past Smokeless Tobacco: Current Comments:MARIJUANA USE ABOUT 2X PER WEEK - reports no use 08-05-2024 Alcohol Use Standard Drinks/Week Comments Not Currently 0 (1 standard drink = 0.6 oz pure alcohol) 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 [facility] Utilities Answer Date Recorded In the past 12 months has [employer], gas, oil, or water [employer] threatened to shut off services in [...] Brief Depression Severity Measure Score 0 10/02/2022 [facility]at ional [facility] - Occupational Stress [...] GED or equivalent No 07/09/2024 Preferred Language Guyanese 07/09/2024 PHQ-2 Answer Date Recorded Patient Health [...] Office [facility] [address] [place] [address] [address] Vazquez Christie PA-C [address] [place] [address] documented as of this encounter Visit Diagnoses Not on filedocumented in this encounter Additional Health Concerns Assessment Noted Time PHQ-2 Depression Total Score: 1 12/31/19 24 3:25 PM EDT documented as of this encounter Care Teams Dry Cleaning Supervisor Relationship Specialty Start Date End Date Enedina Mcguire APRN [address] [place] [address] PCP - General Nurse Practitioner 10/27/24 documented as of this encounter
--- OUTSIDE RECORDS SUMMARY | 2024-12-08 11:02 | XMS_ITS | Clinical Summary ---
Author Organization Healthcare Address [address] [place] [address] Care Team Providers Care Piecer Up Name Role Phone Lj Tapia Rohini RICKS Unavailable [phone] Enedina Mcguire APRN Primary Care Provider + [...] Type Department Care Team Description 11/27/2024 Telephone [facility] Nephrology, Bone & Mineral Metabolism [address], [address] [place] [address] Chelsy Villanueva 09/29/2024 2:20 PM EDT Office Visit [facility] Nephrology, Bone & Mineral Metabolism [address], [address] [place] [address] Yovanny Flores MD NADIYA (acute kidney injury) ([facility]) (Primary Dx); Portal hypertension ([facility]); Secondary esophageal varices with bleeding ([facility]/HCC) 09/29/2024 Travel 09/25/2024 Telephone [facility] Nephrology, Bone & Mineral Metabolism [address], [address] [place] [address] Chelsy Villanueva from Last 3 [...] often do you attend chur ch or jewish services? Patient unable to answer 07/14/2024 Do you belong to any clubs o r organizations such as tenriism groups, unions, fraternal or athletic groups, or [...] Patient Health Questionnaire-2 Score 2 09/29/2024 [facility] - Occupational Stress Questionnaire Answer Date [...] drink first t deborah in the morning (EYE-MACHINE PLUG SHAPER) to steady your nerves or to get [...] Upcoming Encounters Date Type Department Care Team ([facility] st Contact Info) Description 01/08/2025 3:20 PM EDT Office Visit [facility] [place] [address], [address] [place] [address] Vincent Braga MD [address] [place] [id number] Health Maintenance Due Date Last Done Comments [...] 2 - 13+ 2-dose series) 10/11/2010 09/13/2010 [id number] Vaccine (4 - season) 2024 03/17/2021, 07/25/2020, [...] this topic Medical Devices Implanted Type Area Wallpaper Hanger Device Identifier Shelf Expiration Date Model / Serial / Lot Concerto [place] Coil-07/03/2022 Implanted:06/15 by Timmy Brunner MD (Quantity not on file) Coil Abdomen Description:Multiple Coil Co ncerto Pgla [place] Detach COILS implanted on 07/03/2022 by Timmy Brunner MD at [facility]--info can be found in Care Everywhere for [facility] as of 11/15/23 Dona Coil-07/03/2022 Implanted:06/15 by Timmy Brunner MD (Quantity not on file) Coil Abdomen [email or web address] Description:Coil Emb Dona 3.7/Implanted: Qty: 1 on 07/03/2022 by Timmy Brunner MD at [facility] Plate Plate N/A: Neck Plug Vasc Anton Emb Amplatzer Implanted:06/15 by Timmy Brunner MD (Quantity not on file) Plug Other Vein / / [id number] Description:Plug Vasc Anton Em b Ampltz .027 [id number] - [id number] Implanted: Qty: 1 on 07/03/2022 by Timmy Brunner MD at [facility] Stent Gastro Panc 5fr 5cm - [id number] Implanted:Qty: 1 on 11/20/2023 by Devang Mcghee, ЮЛИЯ at [facility] Pancreas [id number] 08/13/2026 [id number] / / [id number] Procedures Procedure Name Priority Date/Time Associated Diagnosis [...] EST 07/14/2024 4:56 PM EST Laureano Salinas MICROSTRATEGY ARCHITECT, DNP LAB BLOOD ORDERA BLES Final Result [facility] [address] [place] [address] * Hepatitis C Antibody (07/14/2024 4:31 PM EST) Hepatitis C Antibody Negative Negative 07/14/2024 5:27 PM EST HEALTH[facility]ARE [facility] Blood Venous blood specimen / Unknown Venipuncture / Unknown 07/14/2024 4:31 PM EST 07/14/2024 4:54 PM EST Laureano Salinas APRN, [facility] LAB BLOOD ORDERA BLES Final Result [facility] [address] [place] [address] from Last 3 Months or Most Recently Relevant to Health Maintenance Insurance [employer] Advance Directives * Full Code (Latest Code Status on File) Date Activated Date Inactivated Comments 07/11/2024 11:04 PM 07/23/2024 6:27 PM Question Answer Comments Patient has decision-making capacity? Yes * Full Code Date Activated Date Inactivated Comments 11/14/2023 10:15 PM 11/27/2023 9:08 PM Question Answer Comments Patient has decision-making capacity? Yes Care Teams Piecer Up Relationship Specialty Start Date End Date Enedina Mcguire APRN [address] [place] [id number] PCP - General 12/04/22 Lj Tapia APRN [address] [place] [address] Referring Physician Gastroenterology 07/18/22
--- OUTSIDE RECORDS SUMMARY | 2024-12-08 11:02 | XMS_ITS | Encounter Summary ---
Author Organization [facility] Address [facility] [place] [address] Care Team Providers Care Software Requirements Engineer Name Role Phone Enedina Mcguire NP Primary Care Provider + [phone] Maureen Pantoja RN Unavailable Unavail able Source [...] release of HIV test results or diagnoses. [id number] Health Encounter Details Date Type Department Care Team (Late st Contact Info) Description 10/31/2024 Orders Only [facility] Liver Transplant at [facility] [address] [facility] [address] [place] [address] Harvey Domínguez III, MD [address] [place] [address] [address] [place] [address] Liver replaced by transplant ([facility]) (Primary Dx); Immunosuppressive management encounter following liver transplant ([facility]) Social History Tobacco Use Types Packs/Day Years [...] past 12 months has th e electric, [employer], or water [employer] threatened to shut off services in your [...] level Lab Routine Liver replaced by transplant ([facility]) Immunosuppressive management encounter following liver transplant ([facility]) 70 Occurrences starting 11/03/2024 until 10/31/2025, 3 completed Hepatic Function Panel Lab Routine Liver replaced by transplant ([facility]) Immunosuppressive management encounter following liver transplant ([facility]) 70 Occurrences starting 11/03/2024 until 10/31/2025, 3 completed Renal Function Panel w/EGFR Lab Routine Liver replaced by transplant ([facility]) Immunosuppressive management encounter following liver transplant ([facility]) 70 Occurrences starting 11/03/2024 until 10/31/2025, 2 completed CBC Lab Routine Liver replaced by transplant ([facility]) Immunosuppressive management encounter following liver transplant ([facility]) 70 Occurrences starting 11/03/2024 until 10/31/2025, 2 completed Differential Lab Routine Liver replaced by transplant ([facility]) Immunosuppressive management encounter following liver transplant ([facility]) 70 Occurrences starting 11/03/2024 until 10/31/2025, 3 [...] - 8,640 /uL 11/25/2024 10:25 AM EDT [facility] Lymphocytes Absolute 1,555 570 - 4,860 /uL 11/25/2024 10:25 AM EDT [facility] Monocytes Absolute 510 0 - 1,296 /uL 11/25/2024 10:25 AM EDT [facility] Eosinophils Absolute 32 0 - 864 /uL 11/25/2024 10:25 AM EDT [facility] Basophils Absolute 73 0 - 108 /uL 11/25/2024 10:25 AM EDT [facility] Whole Blood 11/25/2024 8:42 AM EDT 11/25/2024 9:44 AM EDT Narrative [facility] - 11/25/2024 10:25 AM EDT Standing orders to be drawn: Every Sunday and before 9am and prior to patient taking morning medications. Liver Transplant Fax results to [phone] Call Critical results to [phone] us Harvey Domínguez III, MD LAB BLOOD ORDERABLE S Final Result [facility] [address] [place] [address], [facility] * (ABNORMAL) Hepatic Function Panel (11/25/2024 8:42 AM EDT) Total Bilirubin 0.7 0.0 - 1.5 mg/dL 11/25/2024 10:20 AM EDT [facility] Bilirubin, Direct 0.20 0.00 - 0.40 mg/dL 11/25/2024 10:20 AM EDT [facility] AST 9(L) 13 - 39 U/L 11/25/2024 10:20 AM EDT [facility] ALT 22 7 - 52 U/L 11/25/2024 10:20 AM EDT [facility] Alkaline Phosphatase 198(H) 36 - 125 U/L 11/25/2024 10:20 AM EDT [facility] Total Protein 7.0 6.4 - 8.9 g/dL 11/25/2024 10:20 AM EDT [facility] Albumin 4.5 3.5 - 5.7 g/dL 11/25/2024 10:20 AM EDT [facility] Bilirubin, Indirect 0.50 0.00 - 1.10 mg/dL 11/25/2024 10:20 AM EDT [facility] Plasma 11/25/2024 8:42 AM EDT 11/25/2024 9:47 AM EDT [facility] - 11/25/2024 10:20 AM EDT Standing orders to be drawn: Every Sunday and before 9am and prior to patient taking morning medications. Liver Transplant Fax results to [phone] Call Critical results to [phone] DO NOT REPLACE RENAL PANEL or HEPATIC FUNCTION PANEL w/ CMP, BMP or HEPATIC PROFILE Harvey Domínguez III, MD LAB BLOOD ORDERABLE S Final Result [facility] [address] * Tacrolimus level (11/25/2024 8:42 AM EDT) Tacrolimus (LC-MS) 11.6 3.0 - 15.0 ng/mL 11/25/2024 1:14 PM EDT [facility] Comment:Performed via liquid chromatography tandem mass spectrometry. Detection limit: 1 ng/mL. Individual target concentrations may vary due to target organ and time after transplant. This test has been developed and its performance characteristics determined by [facility] which is certified under [...] 8:42 AM EDT 11/25/2024 9:44 AM EDT [facility] - 11/25/2024 1:14 PM EDT Standing orders to be drawn: Every Sunday and before 9am and prior to patient taking morning medications. Liver Transplant Fax results to [phone] Call Critical results to [phone] us Harvey Domínguez III, MD LAB BLOOD ORDERABLE S Final Result [facility] [address] [facility] [place] [address], [facility] * (ABNORMAL) Differential (11/11/2024 9:13 AM EDT) Neutrophils Relative 69.3 40.0 - 80.0 % 11/11/2024 10:31 AM EDT [facility] Lymphocytes Relative 17.6 15.0 - 45.0 % 11/11/2024 10:31 AM EDT [facility] Monocytes Relative 8.5 0.0 - 12.0 % 11/11/2024 10:31 AM EDT [facility] Eosinophils Relative 2.0 0.0 - 8.0 % 11/11/2024 10:31 AM EDT [facility] Basophils Relative 2.6(H) 0.0 - 1.0 % 11/11/2024 10:31 AM EDT [facility] nRBC 0 0 - 0 /100 WBC 11/11/2024 10:31 AM EDT [facility] Neutrophils Absolute 4,920 1,520 - 8,640 /uL 11/11/2024 10:31 AM EDT [facility] Lymphocytes Absolute 1,250 570 - 4,860 /uL 11/11/2024 10:31 AM EDT [facility] Monocytes Absolute 604 0 - 1,296 /uL 11/11/2024 10:31 AM EDT [facility] Eosinophils Absolute 142 0 - 864 /uL 11/11/2024 10:31 AM EDT [facility] Basophils Absolute 185(H) 0 - 108 /uL 11/11/2024 10:31 AM EDT [facility] Whole Blood 11/11/2024 9:13 AM EDT 11/11/2024 10:19 AM EDT Narrative [facility] - 11/11/2024 10:31 AM EDT Standing orders to be drawn: Every Sunday and before 9am and prior to patient taking morning medications. Liver Transplant Fax results to [phone] Call Critical results to [phone] us Harvey Domínguez III, MD LAB BLOOD ORDERABLE S Final Result [facility] [address] [facility]. [place] [address], [facility] * (ABNORMAL) CBC (11/11/2024 9:13 AM EDT) WBC 7.1 3.8 - 10.8 10E3/uL 11/11/2024 10:31 AM EDT [facility] RBC 3.42(L) 4.20 - 5.80 10E6/uL 11/11/2024 10:31 AM EDT [facility] Hemoglobin 10.6(L) 13.2 - 17.1 g/dL 11/11/2024 10:31 AM EDT [facility] Hematocrit 31.3(L) 38.5 - 50.0 % 11/11/2024 10:31 AM EDT [facility] MCV 91.5 80.0 - 100.0 fL 11/11/2024 10:31 AM EDT [facility] MCH 31.0 27.0 - 33.0 pg 11/11/2024 10:31 AM EDT [facility] MCHC 33.8 32.0 - 36.0 g/dL 11/11/2024 10:31 AM EDT [facility] RDW 20.5(H) 11.0 - 15.0 % 11/11/2024 10:31 AM EDT [facility] Platelets 308 140 - 400 10E3/uL 11/11/2024 10:31 AM EDT [facility] MPV 6.1(L) 7.5 - 11.5 fL 11/11/2024 10:31 AM EDT [facility] Whole Blood 11/11/2024 9:13 AM EDT 11/11/2024 10:19 AM EDT Narrative [facility] - 11/11/2024 10:31 AM EDT Standing orders to be drawn: Every Sunday and before 9am and prior to patient taking morning medications. Liver Transplant Fax results to [phone] Call Critical results to [phone] us Harvey Domníguez III, MD LAB BLOOD ORDERABLE S Final Result [facility] [address] [place] [address], [facility] * (ABNORMAL) Renal Function Panel w/EGFR (11/11/2024 9:13 AM EDT) Sodium 141 133 - 146 mmol/L 11/11/2024 10:51 AM EDT [facility] Potassium 4.6 3.5 - 5.3 mmol/L 11/11/2024 10:51 AM EDT [facility] Chloride 108 98 - 110 mmol/L 11/11/2024 10:51 AM EDT [facility] CO2 24 21 - 33 mmol/L 11/11/2024 10:51 AM EDT [facility] Anion Gap 9 3 - 16 mmol/L 11/11/2024 10:51 AM EDT [facility] BUN 27(H) 7 - 25 mg/dL 11/11/2024 10:51 AM EDT [facility] Creatinine 1.14 0.60 - 1.30 mg/dL 11/11/2024 10:51 AM EDT [facility] Glucose 97 70 - 100 mg/dL 11/11/2024 10:51 AM EDT [facility] Calcium 8.6 8.6 - 10.3 mg/dL 11/11/2024 10:51 AM EDT [facility] Phosphorus 4.4 2.1 - 4.7 mg/dL 11/11/2024 10:51 AM EDT [facility] Albumin 3.8 3.5 - 5.7 g/dL 11/11/2024 10:51 AM EDT [facility] Osmolality, Calculated 297 278 - 305 mOsm/kg 11/11/2024 10:51 AM EDT [facility] EGFR 83 11/11/2024 10:51 AM EDT [facility] Comment:As of 2021, the estimated [...] 9:13 AM EDT 11/11/2024 10:19 AM EDT [facility] - 11/11/2024 10:51 AM EDT Standing orders to be drawn: Every Sunday and before 9am and prior to patient taking morning medications. Liver Transplant Fax results to [phone] Call Critical results to [phone] DO NOT REPLACE RENAL PANEL or HEPATIC FUNCTION PANEL w/ CMP, BMP or HEPATIC PROFILE us Harvey Domínguez III, MD LAB BLOOD ORDERABLE S Final Result [facility] [address] [place] [address], [facility] * (ABNORMAL) Hepatic Function Panel (11/11/2024 9:13 AM EDT) Total Bilirubin 1.0 0.0 - 1.5 mg/dL 11/11/2024 10:51 AM EDT [facility] Bilirubin, Direct 0.39 0.00 - 0.40 mg/dL 11/11/2024 10:51 AM EDT [facility] AST 15 13 - 39 U/L 11/11/2024 10:51 AM EDT [facility] ALT 26 7 - 52 U/L 11/11/2024 10:51 AM EDT [facility] Alkaline Phosphatase 125 36 - 125 U/L 11/11/2024 10:51 AM EDT [facility] Total Protein 5.9(L) 6.4 - 8.9 g/dL 11/11/2024 10:51 AM EDT [facility] Albumin 3.8 3.5 - 5.7 g/dL 11/11/2024 10:51 AM EDT [facility] Bilirubin, Indirect 0.61 0.00 - 1.10 mg/dL 11/11/2024 10:51 AM EDT [facility] Plasma 11/11/2024 9:13 AM EDT 11/11/2024 10:19 AM EDT [facility] - 11/11/2024 10:51 AM EDT Standing orders to be drawn: Every Sunday and before 9am and prior to patient taking morning medications. Liver Transplant Fax results to [phone] Call Critical results to [phone] DO NOT REPLACE RENAL PANEL or HEPATIC FUNCTION PANEL w/ CMP, BMP or HEPATIC PROFILE Harvey Domínguez III, MD LAB BLOOD ORDERABLE S Final Result [facility] [address] * Tacrolimus level (11/11/2024 9:13 AM EDT) Tacrolimus (LC-MS) 10.4 3.0 - 15.0 ng/mL 11/11/2024 1:22 PM EDT [facility] Comment:Performed via liquid chromatography tandem mass spectrometry. Detection limit: 1 ng/mL. Individual target concentrations may vary due to target organ and time after transplant. This test has been developed and its performance characteristics determined by [facility] which is certified under [...] AM EDT 11/11/2024 10:19 AM EDT Narrative [facility] - 11/11/2024 1:22 PM EDT Standing orders to be drawn: Every Sunday and before 9am and prior to patient taking morning medications. Liver Transplant Fax results to [phone] Call Critical results to [phone] us Harvey Domínguez III, MD LAB BLOOD ORDERABLE S Final Result [facility] [address] [place] [address], [facility] * (ABNORMAL) Differential (11/04/2024 8:46 AM EDT) Differential Comments See Note 11/05/2024 12:05 AM EDT [facility] Comment: _Platelets Appear Decreased _Platelet Morphology Normal Myelocytes Relative 3.0(H) 0.0 - 0.0 % 11/05/2024 12:05 AM EDT [facility] Neutrophils Relative 73.0 40.0 - 80.0 % 11/05/2024 12:05 AM EDT [facility] Lymphocytes Relative 17.0 15.0 - 45.0 % 11/05/2024 12:05 AM EDT [facility] Monocytes Relative 6.0 0.0 - 12.0 % 11/05/2024 12:05 AM EDT [facility] Eosinophils Relative 1.0 0.0 - 8.0 % 11/05/2024 12:05 AM EDT [facility] Basophils Relative 0.0 0.0 - 1.0 % 11/05/2024 12:05 AM EDT [facility] Neutrophils Absolute 5,256 1,520 - 8,640 /uL 11/05/2024 12:05 AM EDT [facility] Myelocytes Absolute 216(H) 0 - 0 /uL 11/05/2024 12:05 AM EDT [facility] Lymphocytes Absolute 1,224 570 - 4,860 /uL 11/05/2024 12:05 AM EDT [facility] Monocytes Absolute 432 0 - 1,296 /uL 11/05/2024 12:05 AM EDT [facility] Eosinophils Absolute 72 0 - 864 /uL 11/05/2024 12:05 AM EDT [facility] Basophils Absolute 0 0 - 108 /uL 11/05/2024 12:05 AM EDT [facility] PLT Morphology Platelet morphology appears normal 11/05/2024 12:05 AM EDT [facility] Whole Blood 11/04/2024 8:46 AM EDT 11/04/2024 11:01 PM EDT Narrative [facility] - 11/05/2024 12:05 AM EDT Standing orders to be drawn: Every Sunday and before 9am and prior to patient taking morning medications. Liver Transplant Fax results to [phone] Call Critical results to [phone] Manual WBC differential performed per review criteria approved by the center medical specialist. us Harvey Domínguez III, MD LAB BLOOD ORDERABLE S Final Result [facility] [address] [facility] [place] [address], [facility] * (ABNORMAL) CBC (11/04/2024 8:46 AM EDT) WBC 7.2 3.8 - 10.8 10E3/uL 11/05/2024 12:05 AM EDT [facility] RBC 3.17(L) 4.20 - 5.80 10E6/uL 11/05/2024 12:05 AM EDT [facility] Hemoglobin 9.7(L) 13.2 - 17.1 g/dL 11/05/2024 12:05 AM EDT [facility] Hematocrit 28.6(L) 38.5 - 50.0 % 11/05/2024 12:05 AM EDT [facility] MCV 90.2 80.0 - 100.0 fL 11/05/2024 12:05 AM EDT [facility] MCH 30.5 27.0 - 33.0 pg 11/05/2024 12:05 AM EDT [facility] MCHC 33.8 32.0 - 36.0 g/dL 11/05/2024 12:05 AM EDT [facility] RDW 17.9(H) 11.0 - 15.0 % 11/05/2024 12:05 AM EDT [facility] Platelets 137(L) 140 - 400 10E3/uL 11/05/2024 12:05 AM EDT [facility] Platelet Estimate Decreased 11/05/2024 12:05 AM EDT [facility] MPV 8.4 7.5 - 11.5 fL 11/05/2024 12:05 AM EDT [facility] Whole Blood 11/04/2024 8:46 AM EDT 11/04/2024 11:01 PM EDT Narrative [facility] - 11/05/2024 12:05 AM EDT Standing orders to be drawn: Every Sunday and before 9am and prior to patient taking morning medications. Liver Transplant Fax results to [phone] Call Critical results to [phone] Peripheral blood smear was scanned per review criteria approved by the laboratory center medical specialist. us Harvey Domínguez III, MD LAB BLOOD ORDERABLE S Final Result [facility] [address] * (ABNORMAL) Renal Function Panel w/EGFR (11/04/2024 8:46 AM EDT) Sodium 139 133 - 146 mmol/L 11/04/2024 10:06 AM EDT [facility] Potassium 3.8 3.5 - 5.3 mmol/L 11/04/2024 10:06 AM EDT [facility] Chloride 106 98 - 110 mmol/L 11/04/2024 10:06 AM EDT [facility] CO2 25 21 - 33 mmol/L 11/04/2024 10:06 AM EDT [facility] Anion Gap 8 3 - 16 mmol/L 11/04/2024 10:06 AM EDT [facility] BUN 34(H) 7 - 25 mg/dL 11/04/2024 10:06 AM EDT [facility] Creatinine 1.08 0.60 - 1.30 mg/dL 11/04/2024 10:06 AM EDT [facility] Glucose 92 70 - 100 mg/dL 11/04/2024 10:06 AM EDT [facility] Calcium 7.8(L) 8.6 - 10.3 mg/dL 11/04/2024 10:06 AM EDT [facility] Phosphorus 1.9(L) 2.1 - 4.7 mg/dL 11/04/2024 10:06 AM EDT [facility] Albumin 3.5 3.5 - 5.7 g/dL 11/04/2024 10:06 AM EDT [facility] Osmolality, Calculated 295 278 - 305 mOsm/kg 11/04/2024 10:06 AM EDT [facility] EGFR 88 11/04/2024 10:06 AM EDT [facility] Comment:As of 2021, the estimated [...] AM EDT 11/04/2024 9:32 AM EDT Narrative [facility] - 11/04/2024 10:06 AM EDT Standing orders to be drawn: Every Sunday and before 9am and prior to patient taking morning medications. Liver Transplant Fax results to [phone] Call Critical results to [phone] DO NOT REPLACE RENAL PANEL or HEPATIC FUNCTION PANEL w/ CMP, BMP or HEPATIC PROFILE us Harvey Domínguez III, MD LAB BLOOD ORDERABLE S Final Result [facility] [address] [place] [address], [facility] * (ABNORMAL) Hepatic Function Panel (11/04/2024 8:46 AM EDT) Total Bilirubin 1.3 0.0 - 1.5 mg/dL 11/04/2024 10:06 AM EDT [facility] Bilirubin, Direct 0.57(H) 0.00 - 0.40 mg/dL 11/04/2024 10:06 AM EDT [facility] AST 20 13 - 39 U/L 11/04/2024 10:06 AM EDT [facility] ALT 67(H) 7 - 52 U/L 11/04/2024 10:06 AM EDT [facility] Alkaline Phosphatase 133(H) 36 - 125 U/L 11/04/2024 10:06 AM EDT [facility] Total Protein 5.4(L) 6.4 - 8.9 g/dL 11/04/2024 10:06 AM EDT [facility] Albumin 3.5 3.5 - 5.7 g/dL 11/04/2024 10:06 AM EDT [facility] Bilirubin, Indirect 0.73 0.00 - 1.10 mg/dL 11/04/2024 10:06 AM EDT [facility] Plasma 11/04/2024 8:46 AM EDT 11/04/2024 9:32 AM EDT Narrative [facility] - 11/04/2024 10:06 AM EDT Standing orders to be drawn: Every Sunday and before 9am and prior to patient taking morning medications. Liver Transplant Fax results to [phone] Call Critical results to [phone] DO NOT REPLACE RENAL PANEL or HEPATIC FUNCTION PANEL w/ CMP, BMP or HEPATIC PROFILE us Harvey Domínguez III, MD LAB BLOOD ORDERABLE S Final Result [facility] [address] [place] [address], [facility] * Tacrolimus level (11/04/2024 8:46 AM EDT) Tacrolimus (LC-MS) 9.0 3.0 - 15.0 ng/mL 11/04/2024 3:14 PM EDT [facility] Comment:Performed via liquid chromatography tandem mass spectrometry. Detection limit: 1 ng/mL. Individual target concentrations may vary due to target organ and time after transplant. This test has been developed and its performance characteristics determined by [facility] which is certified under [...] morning medications. Liver Transplant Fax results to [phone] Call Critical results to [phone] us Harvey Domínguez III, MD LAB BLOOD ORDERABLE S Final Result [facility] [address] documented in this encounter Visit Diagnoses [...] documented as of this encounter Care Teams Software Requirements Engineer Relationship Specialty Start Date End Date Enedina Mcguire NP [address] [place] [address] PCP - General Internal Medicine 10/05/24 Maureen Pantoja, ЮЛИЯ Txp Post Coordinator Transplant Hepatology 10/28/24 documented as of this encounter
--- OUTSIDE RECORDS SUMMARY | 2024-12-08 11:02 | XMS_ITS | Encounter Summary ---
Author Organization [facility] Address [address] [place] [id number] Care Team Providers Care Core Stacker Name Role Phone Enedina Mcguire NP Primary Care Provider + [phone] Maureen Pantoja RN Unavailable Unavail able Source [...] release of HIV test results or diagnoses. [id number] Health Encounter Details Date Type Department Care Team (Late st Contact Info) Description 10/27/2024 Chart Note [facility] Liver Transplant at [address] [place] [phone] Crista Power, RN I introduced myself as inpatient liver/kidney administrative support coordinator, Social History Tobacco Use Types Packs/Day Years Used Date Smoking Tobacco: Former Cigarettes Smokeless Tobacco: Current Alcohol Use Standard Drinks/Week Comments Yes 0 (1 standard drink = 0.6 oz pure alcohol) History of alcohol abuse, reports no use in 3 week- typically endorses use as 4 glasses of wine a days Utilities Answer Date Recorded In the past 12 months has [employer], gas, oil, or water [employer] threatened to shut off services in [...] EDT I introduced myself as inpatient liver/kidney administrative support coordinator, explained role and provided my contact [...] documented as of this encounter Care Teams Core Stacker Relationship Specialty Start Date End Date Enedina Mcguire NP [address] [place] [address] PCP - General Internal Medicine 10/05/24 Maureen Pantoja, ЮЛИЯ Txp Post Coordinator Transplant Hepatology 10/28/24 documented as of this encounter
--- OUTSIDE RECORDS SUMMARY | 2024-12-08 11:02 | XMS_ITS | Encounter Summary ---
Author Organization [facility] Address [address] [place] [address] Care Team Providers Care Energy Director Name Role Phone Enedina Mcguire NP Primary Care Provider + [phone] Maureen Pantoja RN Unavailable Unavail able Source [...] release of HIV test results or diagnoses. [id number] Health Encounter Details Date Type Department Care Team (Late st Contact Info) Description 11/04/2024 Nutrition [facility] Kidney Transplant at [address] [place] [phone] Ben Weiss, DMITRY Social History Tobacco Use [...] Recorded In the past 12 months has [employer], gas, oil, or water [employer] threatened to shut off services in [...] meter (TRUE METRIX GLUCOSE METER) [facility] Use to test [...] units lancets (ACCU-CHEK SOFTCLIX LANCETS) [facility] Use to test [...] times a day. naloxone (NARCAN) 4 mg/actuation [place] Apply 1 spray in one nostril [...] as of this encounter Care Teams Energy Director Relationship Specialty Start Date End Date Enedina Mcguire NP [address] [place] [address] PCP - General Internal Medicine 10/05/24 Maureen Pantoja, RN Txp Post Coordinator Transplant Hepatology 10/28/24 documented as of this encounter
--- OUTSIDE RECORDS SUMMARY | 2024-12-08 11:02 | XMS_ITS | Encounter Summary ---
Author Organization [facility] Address [address] [place] [address] Care Team Providers Care Rehab Therapist Name Role Phone Enedina Mcguire NP Primary Care Provider + [phone] Maureen Pantoja RN Unavailable Unavail able Source [...] release of HIV test results or diagnoses. [id number] Health Encounter Details Date Type Department Care Team (Late st Contact Info) Description 11/04/2024 Results Follow-Up [facility] Liver Transplant at [address] [phone] Maureen Pantoja, ЮЛИЯ Tacrolimus level, Hepatic Function [...] Recorded In the past 12 months has [employer], gas, oil, or water [employer] threatened to shut off services in your [...] documented as of this encounter Care Teams Rehab Therapist Relationship Specialty Start Date End Date Enedina Mcguire NP [address] [place] [address] PCP - General Internal Medicine 10/05/24 Maureen Pantoja, RN Txp Post Coordinator Transplant Hepatology 10/28/24 documented as of this encounter
--- OUTSIDE RECORDS SUMMARY | 2024-12-08 11:02 | XMS_ITS | Encounter Summary ---
Author Organization [facility] Address [address] [place] [address] Care Team Providers Care Sample Processor Name Role Phone Enedina Mcguire NP Primary Care Provider + [phone] Maureen Pantoja RN Unavailable Unavail able Source [...] release of HIV test results or diagnoses. [id number] Reason for Visit * Reason Comments Transplant Review Encounter Details Date Type Department Care Team (Late st Contact Info) Description 10/27/2024 Pharmacy Services [facility] [address] [place] [phone] Opal Cox, TaniD Social History Tobacco [...] Recorded In the past 12 months has [employer], gas, oil, or water [employer] threatened to shut off services in your [...] of Care Patient's prescriptions were sent to [facility] for a Transplant benefits review. Julien Anderson received a Kidney/Liver Transplant on 10/26-10/27/24 at [facility]. The patient's discharge medications were sent to [facility] for anticipated discharge of 11/03/24. The patient has a [facility] [facility] commercial insurance plan to cover prescriptions. Currently, the patient's co-pay for all medications is listed below: Acetaminophen 325 mg - $4 Alcohol swabs - $0 Aspiring 81mg - $4 Atovaquone 750 mg/5 ml - $0 Dexcom G7 Multiple Knife Edge Trimmer Operator- $0 Dexcom G7 Sensor- $0 Eliquis 2.5mg [...] $0 Specialty Pharmacy Requirements: Name of Pharmacy: [facility] Specialty Phone Number: Prescriptions Transferred at Discharge Date: The patient could have potential eligibility for the pharmaceutical company medication assistance program for each of these medications. Mr Anderson's total cost of discharge prescriptions is currently $16. This total is subject to changewith the addition or change in any of the prescriptions sent to [facility]. A call was placed to Mr Anderson's room to discuss total cost amount from above and encourage patientto set up profile with [facility] Specialty. [facility] Specialty Pharmacy confirmed delivery of immunosuppressants [...] has been referred to the [facility] Transplant Team. The patient should visit Medication [facility] for assistance if problems arise with the prescriptions. If questions arise regarding discharge medications, please call [phone]. Opal Cox Pharm D Transitions of Care [phone] documented in this encounter Plan of Treatment [...] documented as of this encounter Care Teams Sample Processor Relationship Specialty Start Date End Date Enedina Mcguire NP [address] [place] [address] PCP - General Internal Medicine 10/05/24 Maureen Pantoja, ЮЛИЯ Txp Post Coordinator Transplant Hepatology 10/28/24 documented as of this encounter
--- OUTSIDE RECORDS SUMMARY | 2024-12-08 11:02 | XMS_ITS | Encounter Summary ---
Author Organization [facility] Address [address] [place] [address] Care Team Providers Care Tick Eradicator Name Role Phone Enedina Mcguire NP Primary Care Provider + [phone] Maureen Pantoja RN Unavailable Unavail able Source [...] release of HIV test results or diagnoses. [id number] Health Encounter Details Date Type Department Care Team (Late st Contact Info) Description 11/04/2024 Social Work [facility] Liver Transplant at [address] [place] [phone] Kaylin Willard MSW Social History Tobacco Use [...] Recorded In the past 12 months has [employer], gas, oil, or water [employer] threatened to shut off services in your [...] Patient reports he completed CD treatment with [facility] and was referred to [facility] [place] for aftercare and will be attending 1 week virtual individual counseling sessions.He reports he was due to start this while hospitalized for the transplant and plans to reschedule his next session. Hope Stone given. SW discussed process for writing to Donor family and confirmed Pt/family have [facility] brochure. No further SW needs identified. 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
--- OUTSIDE RECORDS SUMMARY | 2024-12-08 11:02 | XMS_ITS | Encounter Summary ---
Author Organization [facility] Address [address] [place] [address] Care Team Providers Care Commodity Supervisor Name Role Phone Enedina Mcguire APRN Primary Care Provider + Encounter Details Date Type Department Care Team (Late st Contact Info) Description 12/05/2024 Telephone [facility] PAIN [facility]NAGEMENT [address] 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 This did reveal positive THC. Discussed since tramadol is a controlled substance that significant acute this is violation of controlled substance agreement. We will proceed with tramadol taper. He voiced understanding documented in this encounter Plan of Treatment Upcoming Encounters Date Type Department Care Team (Late st Contact Info) Description 01/01/2025 2:15 PM EDT Office Visit [facility] [address] [facility] [address] [place] [address] Vazquez Christie PA-C [address] [facility] [address] [place] [address] documented as of this encounter Visit Diagnoses Not on filedocumented in this encounter Additional Health Concerns Assessment Noted Time PHQ-2 Depression Total Score: 1 12/31/19 24 3:25 PM EDT documented as of this encounter Care Teams Commodity Supervisor Relationship Specialty Start Date End Date Enedina Mcguire APRN [address] [place] [address] PCP - General Nurse Practitioner 10/27/24 documented as of this encounter
--- OUTSIDE RECORDS SUMMARY | 2024-12-08 11:02 | XMS_ITS | Encounter Summary ---
Author Organization [facility] Address [address] [place] [address] Care Team Providers Care Carrier Driver Name Role Phone Enedina Mcguire NP Primary Care Provider + [phone] Maureen Pantoja RN Unavailable Unavail able Source [...] release of HIV test results or diagnoses. [id number] Reason for Visit * Reason Comments Results Encounter Details Date Type Department Care Team (Late st Contact Info) Description 11/04/[address] [facility] Liver Transplant at [address] [phone] Maureen Pantoja, RN Results Social [...] In the past 12 months has [employer], gas, oil, or water [employer] threatened to shut off services in your [...] documented as of this encounter Care Teams Carrier Driver Relationship Specialty Start Date End Date Enedina Mcguire NP [address] [place] [address] PCP - General Internal Medicine 10/05/24 Maureen Pantoja, ЮЛИЯ Txp Post Coordinator Transplant Hepatology 10/28/24 documented as of this encounter
--- OUTSIDE RECORDS SUMMARY | 2024-12-08 11:02 | XMS_ITS | Encounter Summary ---
Author Organization [facility] Address [address] [place] [address] Care Team Providers Care Party Director Name Role Phone Enedina Mcguire NP Primary Care Provider [phone] Source Comments This information has been disclosed [...] release of HIV test results or diagnoses. [id number] Health Encounter Details Date Type Department Care Team (Late st Contact Info) Description 10/27/2024 Chart Note [facility] Kidney Transplant at [address] [place] [phone] Karen Rosen, RN I have verified that [...] In the past 12 months has [employer], gas, oil, or water [employer] threatened to shut off services in your [...] as of this encounter Care Teams Party Director Relationship Specialty Start Date End Date Enedina Mcguire NP [address] [place] [address] PCP - General Internal Medicine 10/05/24 documented as of this encounter
--- OUTSIDE RECORDS SUMMARY | 2024-12-08 11:04 | XMS_ITS | Encounter Summary ---
Author Organization [facility] Address [facility] [place] [address] Care Team Providers Care Silver Cleaner Name Role Phone Enedina Mcguire NP Primary Care Provider + [phone] Maureen Pantoja RN Unavailable Unavail able Source [...] release of HIV test results or diagnoses. [id number] Health Encounter Details Date Type Department Care [...] Recorded In the past 12 months has [employer], [employer], oil, or water [employer] threatened to shut off services in [...] documented as of this encounter Care Teams Silver Cleaner Relationship Specialty Start Date End Date Enedina Mcguire NP [address] [place] [address] PCP - General Internal Medicine 10/05/24 Maureen Pantoja, ЮЛИЯ Txp Post Coordinator Transplant Hepatology 10/28/24 documented as of this encounter
--- OUTSIDE RECORDS SUMMARY | 2024-12-08 11:04 | XMS_ITS | Encounter Summary ---
Author Organization [facility] Address [address] [place] [address] Care Team Providers Care Automatic Transmission Mechanic Name Role Phone Enedina Mcguire NP Primary Care Provider + [phone] Maureen Pantoja RN Unavailable Unavail able Source [...] release of HIV test results or diagnoses. [id number] Health Encounter Details Date Type Department Care Team (Late st Contact Info) Description 11/03/2024 Telephone [facility] Liver Transplant at [address] [place] [phone] Marisela Martinez MA Social History Tobacco [...] Recorded In the past 12 months has [employer], gas, oil, or water [employer] threatened to shut off services in your [...] he will have his labs drawn at [facility] prior to clinic on 11/03. documented in [...] as of this encounter Care Teams Automatic Transmission Mechanic Relationship Specialty Start Date End Date Enedina Mcguire NP [address] [place] [address] PCP - General Internal Medicine 10/05/24 Maureen Pantoja, ЮЛИЯ Txp Post Coordinator Transplant Hepatology 10/28/24 documented as of this encounter
--- OUTSIDE RECORDS SUMMARY | 2024-12-08 11:04 | XMS_ITS | Encounter Summary ---
Author Organization [facility] Address [address] [place] [address] Care Team Providers Care Prn Physical Therapist Name Role Phone Enedina Mcguire NP Primary Care Provider [phone] Source Comments This information has been disclosed [...] release of HIV test results or diagnoses. [id number] Health Encounter Details Date Type Department Care Team (Late st Contact Info) Description 10/17/2024 Pharmacy Services [facility] [address] [place] [phone] Qu, Ridge, RPh Social History Tobacco [...] Recorded In the past 12 months has [employer], gas, oil, or water company threatened to [...] this encounter Progress Notes * Ridge Menjivar, [facility] - 10/17/2024 9:47 AM EDT Julien Anderson [...] member, friend, or other person (including a community chest officer). The at-risk individual reports no known [...] documented as of this encounter Care Teams Prn Physical Therapist Relationship Specialty Start Date End Date Enedina Mcguire NP [address] [place] [address] PCP - General Internal Medicine 10/05/24 documented as of this encounter
--- OUTSIDE RECORDS SUMMARY | 2024-12-08 11:04 | XMS_ITS | Encounter Summary ---
Author Organization [facility] Address [address] [place] [address] Care Team Providers Care Senior Foreman Name Role Phone Enedina Mcguire NP Primary Care Provider + [phone] Maureen Pantoja RN Unavailable Unavail able Source [...] release of HIV test results or diagnoses. [id number] Health Encounter Details Date Type Department Care Team (Late st Contact Info) Description 11/03/2024 Chart Note [facility] Liver Transplant at [address] [place] [phone] Hillary Fernandes, TaniD Liver Transplant Pharmacy Discharge [...] In the past 12 months has e [employer], gas, oil, or water [employer] threatened to shut off services in [...] day. blood-glucose meter (TRUE METRIX GLUCOSE METER) Select [...] times a day. 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
--- OUTSIDE RECORDS SUMMARY | 2024-12-08 11:04 | XMS_ITS | Encounter Summary ---
Author Organization [facility] Address [address] [place] [address] Care Team Providers Care Public Health Inspector Name Role Phone Enedina Mcguire NP Primary Care Provider + [phone] Maureen Pantoja RN Unavailable Unavail able Source [...] release of HIV test results or diagnoses. [id number] Health Encounter Details Date Type Department Care Team (Late st Contact Info) Description 10/29/2024 Education Chart Note [facility] Liver Transplant at [address] [place] [phone] Crista Power, RN Social History Tobacco [...] Recorded In the past 12 months has [employer], gas, oil, or water [employer] threatened to shut off services in [...] of Infection/Rejection [x] 5. When to call spiritual care coordinator [x] 6. Outpatient follow up [...] barriers to discharge identified. Medication times 0900/2100. Jluien Anderson has to use [facility]. Meds are getting delivered 10/31/24. documented in this encounter Plan of Treatment Not on file documented as of this encounter Visit Diagnoses Not on filedocumented in this encounter Additional Health Concerns Assessment Noted Time PHQ-9 Depression Total Score: 17 025 11:00 AM EDT documented as of this encounter Care Teams Public Health Inspector Relationship Specialty Start Date End Date Enedina Mcguire NP [address] [place] [address] PCP - General Internal Medicine 10/05/24 Maureen Pantoja, ЮЛИЯ Txp Post Coordinator Transplant Hepatology 10/28/24 documented as of this encounter
--- OUTSIDE RECORDS SUMMARY | 2024-12-08 11:05 | XMS_ITS | Clinical Summary ---
Author Organization [facility] Address [facility] [place] [address] Care Team Providers Care Quarry Worker Name Role Phone Enedina Mcguire NP Primary Care Provider + [phone] Maureen Pantoja RN Unavailable Unavail able Source [...] therelease of HIV test results or diagnoses. [id number] Allergies Active Allergy Reactions Criticality Noted [...] EDT 025 Active naloxone (NARCAN) 4 mg/actuation [place] Apply 1 spray in one nostril if [...] Active blood-glucose meter (TRUE METRIX GLUCOSE METER) [facility] Use to test blood sugar up to 4 times a day. 1 each 11/03/19 10:20 AM EDT Active blood sugar diagnostic (GLUCOSE BLOOD) Strp Use to test blood sugar up to 4 times a day. 100 strip 11 11/03/19 10:20 AM EDT Active lancets (ACCU-CHEK SOFTCLIX LANCETS) [facility] [...] Encounter for therapeutic drug monitoring,S/P liver transplant ([facility]),Hypomagn esemia,Kidney transplant recipient,Hyperten kevin, unspecified type,Gastroesophag eal reflux disease, unspecified whether esophagitis present Take 3 tablets (975 mg total) by mouth every 8 hours. 200 tablet Active ergocalciferol (ERGOCALCIFEROL) 1,250 mcg (50,000 unit) capsuleIndications :Encounter for therapeutic drug monitoring,S/P liver transplant ([facility]),Hypomagn esemia,Kidney transplant recipient,Hyperten kevin, unspecified type,Gastroesophag eal reflux disease, unspecified whether esophagitis present Take 1 capsule (50,000 Units total) by mouth once a week. 4 capsule 2 025 Active famotidine (PEPCID) 20 MG tabletIndications: Encounter for therapeutic drug monitoring,S/P liver transplant ([facility]),Hypomagn esemia,Kidney transplant recipient,Hyperten kevin, unspecified type,Gastroesophag eal reflux disease, unspecified whether esophagitis present Take 1 tablet (20 mg total) by mouth 2 times a day. 60 tablet 2 025 Active NIFEdipine (PROCARDIA-XL) 30 MG (OSM) 24 hr tabletIndications: Encounter for therapeutic drug monitoring,S/P liver transplant ([facility]),Hypomagn esemia,Kidney transplant recipient,Hyperten kevin, unspecified type,Gastroesophag eal [...] Encounter for therapeutic drug monitoring,S/P liver transplant ([facility]),Hypomagn esemia,Kidney transplant recipient,Hyperten kevin, unspecified type,Gastroesophag eal reflux disease, unspecified whether esophagitis present Take 1 tablet by mouth daily. 30 tablet 2 025 Active valGANciclovir (VALCYTE) 450 mg tabletIndications: Encounter for therapeutic drug monitoring,S/P liver transplant ([facility]),Hypomagn esemia,Kidney transplant recipient,Hyperten kevin, unspecified type,Gastroesophag eal reflux disease, unspecified whether esophagitis present Take 1 tablet (450 mg total) by mouth daily. 30 tablet 2 025 Active mycophenolate (CELLCEPT) 250 mg capsuleIndications :Encounter for therapeutic drug monitoring,S/P liver transplant ([facility]),Hypomagn esemia,Kidney transplant recipient,Hyperten kevin, unspecified type,Gastroesophag eal reflux disease, unspecified whether esophagitis present Take 2 capsules (500 mg total) by mouth 2 times a day. 120 capsule 5 025 Active gabapentin (NEURONTIN) 100 MG capsuleIndications :Encounter for therapeutic drug monitoring,S/P liver transplant ([facility]),Hypomagn esemia,Kidney transplant recipient,Hyperten kevin, unspecified type,Gastroesophag eal [...] :Encounter for therapeutic drug monitoring,S/P liver transplant ([facility]),Hypomagn esemia,Kidney transplant recipient,Hyperten kevin, unspecified type,Gastroesophag eal reflux disease, unspecified whether esophagitis present Take 1 capsule (100 mg total) by mouth 3 times a day. 90 capsule 025 11/25 Discontinued( Refill / Reorder) tacrolimus (PROGRAF) 1 MG capsuleIndications :Encounter for therapeutic drug monitoring,S/P liver transplant ([facility]),Hypomagn esemia,Kidney transplant recipient,Hyperten kevin, unspecified type,Gastroesophag eal [...] 10 mLIndications:Retained ureteral stent of transplanted kidney ([facility]) 10 mL MM Once 11/25/2024 11/25/2024 Ended [...] SBP, s/p CTX x5d; will cont terminal makeup operator ppx with Cipro 500mg daily - [...] Encounters Date Type Department Care Team Description 12/04/2024 Telephone [facility] Transplant at [address] [address] Maureen Pantoja, ЮЛИЯ Results 12/04/2024 Chart Note [facility] Transplant at [address] [address] Marlene Ro MA FK Pending-12/0412/04/2024 Telephone [facility] Transplant at [address] [address] Kaylin Willard MSW 12/04/2024 Telephone [facility] Transplant at [address] [address] Marlene Ro MA 12/03/2024 Chart Note [facility] Transplant at [address] [address] Marlene Ro MA 12/02/2024 Telephone [facility] Liver Transplant at [address] [address] Mitzy Rojas MA 12/01/2024 Telephone [facility] Liver Transplant at [address] [address] Gladis Chisholm MA 11/27/2024 Telephone [facility] Liver Transplant at [address] [address] Maureen Pantoja, ЮЛИЯ Results 11/27/2024 Chart Note [facility] Transplant at [address] [address] Marleen Ro MA FK Pending 11/27 Labs 11/26/2024 Telephone [facility] Liver Transplant at [address] [address] Maureen Pantoja, RN Results 11/25/2024 10:50 AM EDT Office Visit [facility] at [address] [address] Leisa Juarez MD Kaur, Taranpreet NADIYA (acute kidney injury) ([facility]) (Primary Dx); Kidney replaced by transplant; Metabolic acidosis; Hypervolemia associated with renal insufficiency 11/25/2024 10:20 AM EDT Office Visit [facility] at [address] [address] Lydia Sanchez MD Encounter for therapeutic drug monitoring (Primary Dx); S/P liver transplant ([facility]); Hypomagnesemia; Kidney transplant recipient; Hypertension, unspecified type; Gastroesophageal reflux disease, unspecified whether esophagitis present; Abdominal pain, unspecified abdominal location 11/25/2024 9:00 AM EDT Procedure visit [facility] at [facility] [address] [facility] [address] [place] [phone] Julieta Rogers PA Retained ureteral stent of transplanted kidney (CMS-HCC) (Primary Dx) 11/25/2024 Social Work [facility] Transplant at [address] [place] [address] Kaylin Willard MSW 11/24/2024 Orders Only [facility] Transplant at [address] [place] [address] Maureen Pantoja, ЮЛИЯ 11/21/2024 Orders Only [facility] at [facility] [address] [facility] [address] [place] [phone] Vasile Gordillo MA 11/21/2024 Telephone [facility] Transplant at [address] [place] [address] Maureen Pantoja, RN Results 11/21/2024 Chart Note [facility] Transplant at [address] [place] [address] Marlene Ro MA FK: 11/18 & 11/20 Pending 11/20/2024 Refill [facility] Transplant at [address] [place] [address] Maureen Pantoja, ЮЛИЯ 11/20/2024 Refill [facility] Liver Transplant at [address] [address] [place] [address] Maureen Pantoja, RN 11/20/2024 Orders Only [facility] Transplant at [facility] [address] [address] Maureen Pnatoja, RN S/P liver transplant ([facility]) (Primary Dx); Immunosuppression ([facility]); Viral disease exposure; Alcohol use 11/18/2024 Telephone [facility] Transplant at [address] [address] Maureen Pantoja, RN Results 11/18/2024 Chart Note [facility] Transplant at [address] [address] Marlene Ro MA 11/11/2024 10:30 AM EDT Office Visit [facility]plant at [address] [address] Unknown, Attending Provider Jessica Colon Kidney replaced by transplant (Primary Dx); Hypervolemia associated with renal insufficiency 11/11/2024 10:00 AM EDT Office Visit [facility] Liver Transplant at [address] [address] Cosmo Pacheco MD Quillin, Ralph Cutler III, MD Encounter for therapeutic drug monitoring (Primary Dx); Abdominal pain, unspecified abdominal location 11/11/2024 9:30 AM EDT Office Visit [facility] Psychiatry Transplant at [address] [address] Lizeth Warren PsyD PTSD (post-traumatic stress disorder) (Primary Dx) 11/11/2024 8:50 AM EDT [facility] [address] [place] [address] Harvey Domínguez III, MD Liver replaced by transplant ([facility]); Immunosuppressive management encounter following liver transplant ([facility]); Kidney transplant recipient 11/11/2024 Telephone [facility] Transplant at [place] [address] [place] [address] Maureen Pantoja, ЮЛИЯ Results 11/10/2024 Orders Only [facility] Transplant at [address] [address] Maureen Pantoja, ЮЛИЯ Liver transplant recipient ([facility]) (Primary Dx); Kidney transplant recipient; Immunosuppressive management encounter following liver transplant ([facility]) 11/10/2024 Orders Only [facility] Liver Transplant at [address] [address] Maureen Pantoja, ЮЛИЯ 11/09/2024 Telephone [facility] [address] [place] [address] Unknown, Attending Provider After Hours Call (Passing blood through stool states started this morning has had 3 bloody bowel movements kidney and liver txp done 2 weeks ago) 11/07/2024 Telephone [facility] Liver Transplant at [address] [address] Marlene Ro MA 11/07/2024 Telephone [facility] Liver Transplant at [address] [address] Maureen Pantoja, ЮЛИЯ Results 11/07/2024 Chart Note [facility] Liver Transplant at [address] [address] Marlene Ro MA FK Pending 11/04/2024 10:10 AM EDT Office Visit [facility] Transplant at [address] [address] Leisa Juarez MD Kidney transplant recipient (Primary Dx); Diarrhea of presumed infectious origin; Hypomagnesemia; Hypervolemia, unspecified hypervolemia type; Liver transplant recipient (CMS-HCC); Other hypervolemia; Hyperparathyroidism ([facility]); Nausea and vomiting, unspecified vomiting type 11/04/2024 8:40 AM EDT Office Visit [facility] Transplant at [address] [phone] Cosmo Pacheco MD Liver transplant recipient ([facility]) (Primary Dx); Alcoholic cirrhosis of liver with ascites (CMS-HCC); Kidney transplant recipient; Acute kidney injury superimposed on CKD (CMS-HCC); CKD (chronic kidney disease) stage 4, GFR 15-29 ml/min (CMS-HCC); Immunosuppressive management encounter following liver transplant ([facility]); Abdominal pain, unspecified abdominal location 11/04/2024 Telephone [facility] Transplant at [address] [address] Marueen Pantoja, ЮЛИЯ Results 11/04/2024 Results Follow-Up [facility]plant at [address] [address] Maureen Pantoja, ЮЛИЯ Tacrolimus level, Hepatic Function Panel, Renal Function Panel w/EGFR, Additional followed-up results: 3 11/04/2024 Social Work [facility] Transplant at [address] [address] Kaylin Willard, NUBIA 11/04/2024 Nutrition [facility] Kidney Transplant at [address] [phone] Ben Weiss, DMITRY 11/03/2024 Chart Note [facility] Transplant at [address] [address] Hillary Fernandes, PharmD Liver Transplant Pharmacy Discharge Note 11/03/2024 Telephone [facility] Transplant at [address] [address] Marisela Martinez MA 10/31/2024 Orders Only [facility] Transplant at [address] [phone] Harvey Domínguez III, MD Liver replaced by transplant ([facility]) (Primary Dx); Immunosuppressive management encounter following liver transplant ([facility]) 10/29/2024 Travel 10/29/2024 Education Chart Note [facility] Transplant at [address] [phone] Crista Power, RN 10/27/2024 2:34 AM EDT Anesthesia Event [facility] [address] [place] [phone] Rocky Manning MD Kopel, Lior, MD 10/27/2024 2:00 AM EDT - 10/27/2024 6:54 AM EDT Surgery [facility] [address] [phone] Harvey Domínguez III, MD Donor Kidney Transplant , Back Bench Preparation Donor Kidney, Baseline Kidney transplant biopsy , Insertion of Indwelling Stent , Removal of Perihepatic packing 10/27/2024 Pharmacy Services [facility] [address] [place] [address] Opal Cox, PharmD 10/27/2024 Chart Note [facility] Kidney Transplant at [address] [phone] Karen Rosen, RN I have verified that the donor serologies entered in [employer] match the donor 10/27/2024 Chart Note [facility] Liver Transplant at [address] [address] Crista Power, RN I introduced myself as inpatient liver/kidney sponsorship coordinator, 10/27/2024 Orders Only [facility] at [facility] [address] [place] [address] Abdulkadir Gaspar MD 10/26/2024 Chart Note [facility] Kidney Transplant at [address] [address] Geri Vasquez RN 10/26/2024 Chart Note [facility] Liver Transplant at [address] [phone] Geri Vasquez RN 10/25/2024 10:54 PM EDT Anesthesia Event [address] [address] Eber Quinones MD Edwards, Anna, MD 10/25/2024 10:30 PM EDT - 10/26/2024 6:12 AM EDT Surgery [address] [address] Harvey Domínguez III, MD LIVER TRANSPLANT 10/25/2024 8:46 PM EDT - 11/02/2024 6:23 PM EDT Hospital Encounter [facility] [address] [address] Harvey Domínguez III, MD Haugen, Christine, MD Acute kidney injury superimposed on CKD ([facility]) (Primary Dx); Prophylactic antibiotic; Prolonged QT interval; Immunosuppression ([facility]); Abdominal pain, unspecified abdominal location Discharge Disposition: Home or Self Care WITHOUT Home Care Services 10/25/2024 Travel 10/25/2024 Telephone [facility] Transplant at [address] [phone] Krissy Crowell, ЮЛИЯ DDLT patient instructions 10/25/2024 Telephone [facility] Transplant at [address] [phone] Krissy Crowell, ЮЛИЯ 10/24/2024 Telephone [facility] at [address] [place] [address] [place] [phone] Joann Davies MA Appointment 10/22/2024 Telephone [facility] Liver Transplant at [address] [place] [phone] Mary Butler, RN 10/22/2024 Chart Note [facility] Kidney Transplant at [address] [place] [address] Gladis Rainey RN Received most recent eGFR from today with result of 21. Pt meets CKD 10/22/2024 Chart Note [facility] Liver Transplant at [address] [place] [address] Faraz Carballo, ЮЛИЯ 2nd ABO verified for [facility] listing at the request of JOSE G Butler. 10/22/2024 Telephone [facility] Psychiatry Transplant at [address] [place] [address] Lizeth Warren PsyD 10/22/2024 Chart Note [facility] [address] [place] [address] Aaron Gonzalez MD Candidacy for a simultaneous liver-kidney transplant 10/22/2024 Status Update [facility] Kidney Transplant at [address] [place] [phone] Aaron Gonzalez MD 10/22/2024 Chart Note [facility] Liver Transplant at [address] [place] [phone] Mary Butler, RN UNOS VERIFICATION CHECK FORM 10/22/2024 Orders Only [facility] at [facility] [address] [place] [address] Abdulkadir Gaspar MD 10/22/2024 Chart Note [facility] Liver Transplant at [facility] [address] [place] [address] [place] [address] Mary Butler RN 10/21/2024 Telephone [facility] at [facility] [address] [facility] [address] [place] [address] Gerri Peterson MD Medication Management (Requesting RX for New Medication ) 10/21/2024 Refill [facility] at [facility] [address] [facility] [address] [place] [address] Gerri Peterson MD 10/20/2024 9:10 AM EDT - 10/20/2024 11:59 PM EDT Hospital Encounter [facility] [address] [place] [address] System, Provider Not In Discharge Disposition: Home or Self Care WITHOUT Home Care Services 10/20/2024 9:10 AM EDT - 10/20/2024 11:59 PM EDT Hospital Encounter [facility] [address] [place] [address] System, Provider Not In Discharge Disposition: Home or Self Care WITHOUT Home Care Services 10/20/2024 9:10 AM EDT - 10/20/2024 11:59 PM EDT Hospital Encounter [facility] [address] [place] [address] System, Provider Not In Discharge Disposition: Home or Self Care WITHOUT Home Care Services 10/20/2024 9:10 AM EDT - 10/20/2024 11:59 PM EDT Hospital Encounter [facility] [address] [place] [address] System, Provider Not In Discharge Disposition: Home or Self Care WITHOUT Home Care Services 10/20/2024 9:10 AM EDT - 10/20/2024 11:59 PM EDT Hospital Encounter [facility] [address] [place] [address] System, Provider Not In Discharge Disposition: Home or Self Care WITHOUT Home Care Services 10/20/2024 9:10 AM EDT - 10/20/2024 11:59 PM EDT Hospital Encounter [facility] [address] [place] [place] [address] System, Provider Not In Discharge Disposition: Home or Self Care WITHOUT Home Care Services 10/20/2024 9:10 AM EDT - 10/20/2024 11:59 PM EDT Hospital Encounter [facility] [address] [place] [address] System, Provider Not In Discharge Disposition: Home or Self Care WITHOUT Home Care Services 10/20/2024 Orders Only [facility] [address] [place] [phone] Abdulkadir Gaspar MD 10/20/2024 Telephone [facility] at [facility] [address] [facility] [address] [place] [phone] Gerri Peterson MD Prescription Issue (RX Clarification Request ) 10/20/2024 Refill [facility] at [facility] [address] [facility] [address] [place] [address] Gerri Peterson MD 10/20/2024 Telephone [facility] Liver Transplant at [address] [place] [address] [place] [phone] Mary Butler RN 10/17/2024 Chart Note [facility] Kidney Transplant at [address] [place] [address] [place] [phone] Anny Cote, RN Copy of HLA report scanned into the media tab. Will follow up on GFR 10/17/2024 Chart Note [facility] Kidney Transplant at [address] [phone] Anny Cote, RN 10/17/2024 Pharmacy Services [facility] [address] [place] [phone] Ridge Menjivar [facility] 10/14/2024 8:42 AM EDT - 10/14/2024 9:27 AM EDT Surgery [facility] Cardiac Cable Operator [address] [place] [place] [phone] Irving Matta MD Left Heart Cath 10/14/2024 Chart Note [facility] Kidney Transplant at [address] [phone] [facility] [address] 10/10/2024 12:01 PM EDT Anesthesia Event [facility] ENDOSCOPY [address] [place] [address] Cady Bhat MD Nguyen, Quinn, MD 10/10/2024 10:36 AM EDT - 10/10/2024 11:06 AM EDT Surgery [facility] ENDOSCOPY [address] [place] [phone] Lino Soto MD EGD 10/09/2024 Social Work [facility] Liver Transplant at [address] [address] Kaylin Willard MSW 10/09/2024 Chart Note [facility] Kidney Transplant at [address] [address] [facility] [address] call from [facility] fx [phone] 10/09/2024 Chart Note [facility] Kidney Transplant at [address] [phone] [facility] [address] 10/07/2024 Chart Note [facility] Liver Transplant at [address] [address] Mary Butler, RN Spoke with Blair Anderson today for evaluation for a combined liver and 10/07/2024 Chart Note [facility] Kidney Transplant at [address] [address] Anny Cote RN Received notice of in house evaluation. Message to nephrology 10/07/2024 Chart Note [facility] Kidney Transplant at [address] [address] Chey Nicole MA This MA received new referral for PT. Will FU once financially cleared. 10/07/2024 Chart Note [facility] Kidney Transplant at [address] [phone] Anny Cote RN Simultaneous Liver-Kidney Transplant Referral 10/06/2024 Travel 10/05/2024 11:12 PM EDT - 10/17/2024 10:29 AM EDT Hospital Encounter [facility] [address] [place] [address] Gómez Blanchard MD Wood, Sharice N, MD [...] Care WITHOUT Home Care Services 10/05/2024 Telephone [facility] [address] [place], [place] [phone] Unknown, Attending Provider After Hours Call 10/01/2024 Telephone [facility] Transplant at [address] [place] [address] Armand Salinas RN 09/30/2024 Social Work [facility] Liver Transplant at [address] [address] Kaylin Willard MSW 09/29/2024 11:00 AM EDT Office Visit [facility]plant at [place] [address] [place] [address] Lizeth Warren PsyD PTSD (post-traumatic stress disorder) (Primary Dx); Alcohol use disorder 09/26/2024 Abstract [facility] [address] [facility] [address] [place] [phone] Gerri Peterson MD 09/25/2024 11:25 AM EDT [facility] [address] [place] [address] Gerri Peterson MD Cirrhosis of liver with ascites, unspecified hepatic cirrhosis type ([facility]); Pre-transplant evaluation for chronic liver disease; Alcoholic cirrhosis of liver without ascites ([facility]) 09/25/2024 Social Work [facility] Liver Transplant at [address] [place] [phone] Kaylin Willard MSW 09/25/2024 Telephone [facility]iology [address] [place] [phone] Thad De Leon Appointment 09/25/2024 Orders Only [facility] Liver Transplant at [address] [place] [phone] Mary Butler, RN Pre-transplant evaluation for chronic liver disease (Primary Dx); Alcoholic cirrhosis of liver without ascites (CMS-HCC) 09/24/2024 Orders Only [facility] at [facility] [address] [facility] [address] [place] [address] Gerri Peterson MD Cirrhosis of liver with ascites, unspecified hepatic cirrhosis type (CMS-HCC) (Primary Dx) 09/24/2024 Orders Only [facility] [address] [facility] [address] [place] [phone] Gerri Peterson MD Cirrhosis of liver with ascites, unspecified hepatic cirrhosis type (CMS-HCC) (Primary Dx) 09/23/2024 Telephone [facility] at [facility] [address] [facility] [address] [place] [address] Gerri Peterson MD Orders (Order Clarification Request/) 09/22/2024 Telephone [facility] at [facility] [address] [facility] [address] [address] [place] [phone] Gerri Peterson MD Orders (Order Clarification Request ) 09/17/2024 Telephone [facility] at [address] [place] [phone] Kaylin Willard MSW 09/17/2024 Abstract [facility] at [facility] [address] [facility] [address] [place] [phone] Gerri Peterson MD 09/17/2024 Telephone [facility] at [address] [place] [phone] Kaylin Willard MSW 09/16/2024 Telephone [facility] [address] [place] [address] Gerri Peterson MD Medical Management (Plan of Care Inquiry/Question ) 09/10/2024 Telephone [facility] at [facility] [address] [place] [address] Kaylin Willard MSW 09/03/2024 4:56 AM EDT - 09/09/2024 6:25 PM EDT Hospital Encounter [facility] [address] [place] [address] Ana Maria Ramey MD Zackary, [...] Recorded In the past 12 months has [employer], [employer], oil, or water [employer] threatened to shut off services in your [...] 11/25/2024, 09/29/2024, Additional history exists Renal Function/GFR 12/04/2025 12/04/2024, 0 12/02/2024, 11/27/2024, Additional history exists Immunization: DTaP/Tdap/Td ( 3 - Td or Tdap) 06/03/2028 06/03/2018, 09/13/2010 Hepatitis C Screening (MyChart) Completed 10/25/2024, 10/07/2024, 10/06/2024, Additional history exists HIV Screening Completed 11/25/2024, 10/12, 10/07/2024 Procedures Procedure Name Priority Date/Time Associated Diagnosis Comments TACROLIMUS LEVEL Routine 12/04/2024 7:47 AM EDT MAGNESIUM Routine 12/04/2024 7:47 AM EDT RENAL FUNCTION PANEL W/O EGFR Routine 12/04/2024 7:47 AM EDT PROTIME-INR Routine 12/04/2024 7:47 AM EDT CBC AND DIFFERENTIAL Routine 12/04/2024 7:47 AM EDT HEPATIC FUNCTION PANEL Routine 7:47 AM EDT RENAL FUNCTION PANEL W/O EGFR Routine 12/02/2024 8:01 AM EDT CREATININE, URINE, RANDOM Routine 2024 8:01 AM EDT URINALYSIS W/RFL TO MICROSCOPIC Routine 12/02/2024 8:01 AM EDT CBC AND DIFFERENTIAL Routine 12/02/2024 8:01 AM EDT URINE PROTEIN, TOTAL, RANDOM (W/O CREATININE) Routine 12/02/2024 8:01 AM EDT HEPATIC FUNCTION PANEL Routine 8:01 AM EDT URINE CULTURE Routine 12/02/2024 8:01 AM EDT TACROLIMUS LEVEL Routine 11/27/2024 [...] Routine 10/31/2024 10:19 AM EDT US DUPLEX ATF-[id number] COMPLETE Routine 10/31/2024 10:19 AM EDT ECG [...] STAT 10/28/2024 4:23 PM EDT US DUPLEX AXN-IUTYOD-AXXEAKO COMPLETE STAT 10/28/2024 4:23 PM EDT TRANSFUSE [...] CRYOPRECIPITATE Routine 10/29/19 25 6:15 AM EDT POC GLU MONITORING [...] STAT 10/27/2024 9:51 AM EDT US DUPLEX VHL-LLGWUF-[id number] COMPLETE STAT 10/27/2024 9:51 AM EDT US [...] EDT Acute kidney injury superimposed on CKD ([facility]) WA RENAL ALTRNSPLJ IMPLTJ GRF W/BENCH ASSEMBLER NEPHRECTOMY 10/27/2024 2:32 AM EDT Acute kidney injury superimposed on CKD ([facility]) 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 [...] LIPID PANEL Routine 10/07/2024 6:37 PM EDT [id number] (AAT) QUANTITATION & MUTATION Routine 10/07/2024 6:37 [...] Routine 10/07/2024 3:48 PM EDT US DUPLEX TLW-[id number]-[id number] COMPLETE Routine 10/07/2024 3:48 PM EDT CARISA [...] 10/06/2024 4:01 AM EDT UPPER RESPIRATORY VIRAL/BACTERIAL PANEL-BRIM FLEXER ONLY Routine 10/06/2024 3:12 AM EDT XR [...] EDT CBC Routine 09/08/2024 4:05 AM EDT from Last 3 Months Results * (ABNORMAL) Hepatic Function Panel (12/04/2024 7:47 AM EDT) Only the most recent of40 resultswithin the time period is included. Bilirubin, Direct 0.5 Bilirubin, Indirect 0.2 Alkaline Phosphatase 102 U/L ALT 14 U/L AST 15 U/L Total Bilirubin 0.7 0.1 - 1.4 mg/dL Total Protein 5.8(A) 6.4 - 8.2 g/dL Plasma Narrative Resulting Agency Comment [facility] us Historical Provider LAB BLOOD ORDERABLES Denisse l Result * Tacrolimus level (12/04/2024 7:47 AM EDT) Only the most recent of15 resultswithin the time period is included. Tacrolimus Lvl 7.5 6 - 15 ng/mL Whole Blood Narrative Resulting Agency Comment [facility] Provider MD LAB BLOOD ORDERABLES Denisse l Result * Protime-INR (12/04/2024 7:47 AM EDT) Only the most recent of29 resultswithin the time period is included. INR 0.99 0.9 - 1.1 Plasma Narrative Resulting Agency Comment [facility] Result [facility] Provider MD LAB BLOOD ORDERABLES Denisse l Result * (ABNORMAL) CBC and differential (12/04/2024 7:47 AM EDT) Only the most recent of8 resultswithin the time period is included. [facility] Hemoglobin 10.7(A) 13.5 - 17.5 g/dL Hematocrit [...] 6.5 10^3/mL Blood Narrative Resulting Agency Comment [facility] Result [facility] Provider MD LAB BLOOD ORDERABLES Denisse l Result * (ABNORMAL) Magnesium (12/04/2024 7:47 AM EDT) Only the most recent of31 resultswithin the time period is included. [facility] Magnesium 1.2(A) 1.6 - 2.4 mg/dL Plasma Narrative Resulting Agency Comment [facility] Result [facility] LAB BLOOD ORDERABLES Denisse l Result * (ABNORMAL) Renal Function Panel w/o EGFR (12/04/2024 7:47 AM EDT) Only the most recent of10 resultswithin the time period is included. Glucose 100 mg/dL BUN 22(A) 4 - [...] Blood Narrative Resulting Agency Comment [facility] Result [facility] LAB BLOOD ORDERABLES Denisse l Result * Urine Protein, Tot, Random (w/o Creat) (12/02/2024 8:01 AM EDT) Total Protein, Ur 10.0 Urine Narrative Resulting Agency Comment [facility] Result [facility] URINE ORDERABLES Final Re sult * Creatinine, urine, random (12/02/2024 8:01 AM EDT) Only the most recent of2 resultswithin the time period is included. Creatinine, Urine 48 Urine Narrative Resulting Agency Comment [facility] Result [facility] URINE ORDERABLES Final Re sult * Urinalysis w/Rfl to Microscopic (12/02/2024 8:01 AM EDT) Only the most recent of6 resultswithin the time period is included. Glucose, UA Negative Negative Ketones, UA Negative Negative Blood, UA Negative Negative Bilirubin, UA Negative Negative Urobilinogen, UA Normal Normal Protein, UA Negative Negative Leukocyte Esterase, UA Negative Negative pH, UA 6.0 4.5 - 8.0 Specific [place], UA 1.010 1.005 - 1.030 Clarity, UA Clear Clear Color, UA Yellow Light Yellow, Yellow Urine Narrative Resulting Agency Comment [facility] Historical Provider URINE ORDERABLES Final Re sult * Urine culture (12/02/2024 8:01 AM EDT) Only the most recent of2 resultswithin the time period is included. Urine Culture, Comprehensive No Growth URINE SPECIMEN / Unknown Historical Provider MICROBIOLOGY - GENERAL OR DERABLES Final Result * Phosphatidylethanol Confirmation, B (11/25/2024 8:42 [...] 11/28/2024 8:24 AM EDT HEALTH LAB Comment: PEth 16:0/18:2 (PLPEth) Reference ranges are not well established PEth Interpretation Positive. 11/28 8:24 AM EDT HEALTH LAB Comment: ADDITIONAL INFORMATION This report is intended for use in clinical monitoring and management of patients. It is not intended for use in employment-related testing. This test was developed and its performance characteristics determined by [facility] in a manner consistent with CLIA requirements. This test has not been cleared or approved by the U.S. Food and Drug Administration. Test Performed by: [facility] [address] [place] [address] Beam Department Supervisor: Kathy Ortiz Ph.D.; CLIA# [id number] Whole Blood 11/25/2024 8:42 AM EDT 11/28/2024 8:24 AM EDT [facility] Recommend LAB - 11/28/2024 8:24 AM EDT One time lab order to be collected with next set of standing liver transplant labs. Please fax all results to [phone]. Call critical results to [phone]. Harvey Domínguez III, MD LAB BLOOD ORDERABLE S Final Result Recommend LAB [address] [address], [facility] * Hepatitis B Virus (HBV), PCR, Quant (11/25/2024 8:42 AM EDT) Hep B Viral DNA IU/ML Not Detected IU/mL 11/28/2024 10:09 AM EDT Recommend LAB Comment:Test methodology for HBV DNA quantification is an FDA-approved nucleic acid amplification assay. The lower limit of quantitation (LLOQ) is 10 IU/mL. The linear range of the assay is 10-1,000,000,000 IU/mL. The limit of detection (LoD) for plasma is 2.7 IU/mL. The reference range is Not Detected. log 10 HBV as IU/mL See Note log 10 IU/mL 11/28/2024 10:09 AM EDT Recommend LAB Comment:HBV DNA not detected . Plasma 11/25/2024 8:42 AM EDT 11/25/2024 10:59 AM EDT [facility] LAB - 11/28/2024 10:09 AM EDT One time lab order to be collected with next set of standing liver transplant labs. UNOS requirement. Please fax all results to [phone]. Call critical results to [phone]. Harvey Domínguez III, MD LAB BLOOD ORDERABLE S Final Result Performing Organization Address City/[facility]/ZIP Co de Phone Number [facility] [address] * HIV-1 RNA, Quantitative, PCR (11/25/2024 8:42 AM EDT) HIV 1 Copies Not Detected copies/mL 11/26/2024 10:57 AM EDT [facility] Comment:Test methodology for HIV-1 RNA quantification is an FDA-approved nucleic acid amplification assay. The Lower Limit of Quantitation (LLoQ) is 20 copies/mL. The linear range is 20- to 10,000,000 copies/mL. The Limit of Detection (LoD) is 13.2 copies/mL. The reference range is Not Detected. HIV [id number] See Note [id number] /mL 11/26/2024 10:57 AM EDT [facility] Comment:HIV-1 RNA not detect ed. Plasma 11/25/2024 8:42 AM EDT 11/25/2024 10:59 AM EDT Narrative [facility] - 11/26/2024 10:57 AM EDT One time lab order to be collected with next set of standing liver transplant labs. UNOS requirement. Please fax all results to [phone]. Call critical results to [phone]. Harvey Domínguez III, MD LAB BLOOD ORDERABLE S Final Result Performing Organization Address City/[facility]/ZIP Co de Phone Number [facility] [address] * Hepatitis C RNA, Quantitative PCR (11/25/2024 8:42 AM EDT) International Units Not Detected IU/mL 11/27/2024 11:35 AM EDT [facility] Comment:Test methodology for HCV RNA quantification is an FDA-approved nucleic acid amplification assay. The Lower Limit of Quantitation (LLOQ) is 15 IU/mL. The linear range of the assay is 15-100,000,000 IU/mL. The Limit of Detection (LoD) is 12.0 IU/mL for EDTA plasma. The reference range is Not Detected. IU log10 See Note log 10 IU/mL 11/27/2024 11:35 AM EDT [facility] Comment:HCV RNA not detected . Plasma 11/25/2024 8:42 AM EDT 11/25/2024 10:59 AM EDT Narrative [facility] - 11/27/2024 11:35 AM EDT One time lab order to be collected with next set of standing liver transplant labs. UNOS requirement. Please fax all results to [phone]. Call critical results to [phone]. us Harvey Domínguez III, MD LAB BLOOD ORDERABLE S Final Result [facility] [address] [place] [address], [facility] * Differential (11/25/2024 8:42 AM EDT) Only the most recent of6 resultswithin the time period is included. Neutrophils Relative 73.2 40.0 - 80.0 % 11/25/2024 10:25 AM EDT [facility] Lymphocytes Relative 19.2 15.0 - 45.0 % 11/25/2024 10:25 AM EDT [facility] Monocytes Relative 6.3 0.0 - 12.0 % 11/25/2024 10:25 AM EDT [facility] Eosinophils Relative 0.4 0.0 - 8.0 % 11/25/2024 10:25 AM EDT [facility] Basophils Relative 0.9 0.0 - 1.0 % 11/25/2024 10:25 AM EDT [facility] nRBC 0 0 - 0 /100 WBC 11/25/2024 10:25 AM EDT [facility] Neutrophils Absolute 5,929 1,520 - 8,640 /uL 11/25/2024 10:25 AM EDT [facility] Lymphocytes Absolute 1,555 570 - 4,860 /uL 11/25/2024 10:25 AM EDT [facility] Monocytes Absolute 510 0 - 1,296 /uL 11/25/2024 10:25 AM EDT [facility] Eosinophils Absolute 32 0 - 864 /uL 11/25/2024 10:25 AM EDT [facility] Basophils Absolute 73 0 - 108 /uL 11/25/2024 10:25 AM EDT [facility] Whole Blood 11/25/2024 8:42 AM EDT 11/25/2024 9:44 AM EDT Narrative [facility] - 11/25/2024 10:25 AM EDT Standing orders to be drawn: Every Sunday and before 9am and prior to patient taking morning medications. Liver Transplant Fax results to [phone] Call Critical results to [phone] us Harvey Domínguez III, MD LAB BLOOD ORDERABLE S Final Result [facility] [address] [place] [address], [facility] * (ABNORMAL) CBC (11/25/2024 8:42 AM EDT) Only the most recent of40 resultswithin the time period is included. WBC 8.1 3.8 - 10.8 10E3/uL 11/25/2024 10:25 AM EDT [facility] RBC 3.71(L) 4.20 - 5.80 10E6/uL 11/25/2024 10:25 AM EDT [facility] Hemoglobin 11.7(L) 13.2 - 17.1 g/dL 11/25/2024 10:25 AM EDT [facility] Hematocrit 33.8(L) 38.5 - 50.0 % 11/25/2024 10:25 AM EDT [facility] MCV 91.1 80.0 - 100.0 fL 11/25/2024 10:25 AM EDT [facility] MCH 31.5 27.0 - 33.0 pg 11/25/2024 10:25 AM EDT [facility] MCHC 34.6 32.0 - 36.0 g/dL 11/25/2024 10:25 AM EDT [facility] RDW 20.0(H) 11.0 - 15.0 % 11/25/2024 10:25 AM EDT [facility] Platelets 193 140 - 400 10E3/uL 11/25/2024 10:25 AM EDT [facility] Comment:Slide Reviewed for P LT Clumps. None Seen. MPV 6.9(L) 7.5 - 11.5 fL 11/25/2024 10:25 AM EDT [facility] Whole Blood 11/25/2024 8:42 AM EDT 11/25/2024 9:44 AM EDT us Gerri Peterson MD LAB BLOOD ORDERABLES Final Resu lt [facility] [address] * (ABNORMAL) Comprehensive metabolic panel (11/25/2024 8:42 AM EDT) Only the most recent of5 resultswithin the time period is included. Sodium 141 133 - 146 mmol/L 11/25/2024 10:20 AM EDT [facility] Potassium 4.3 3.5 - 5.3 mmol/L 11/25/2024 10:20 AM EDT [facility] Chloride 106 98 - 110 mmol/L 11/25/2024 10:20 AM EDT [facility] CO2 23 21 - 33 mmol/L 11/25/2024 10:20 AM EDT [facility] Anion Gap 12 3 - 16 mmol/L 11/25/2024 10:20 AM EDT [facility] BUN 43(H) 7 - 25 mg/dL 11/25/2024 10:20 AM EDT [facility] Creatinine 1.59(H) 0.60 - 1.30 mg/dL 11/25/2024 10:20 AM EDT [facility] Glucose 93 70 - 100 mg/dL 11/25/2024 10:20 AM EDT [facility] Calcium 10.0 8.6 - 10.3 mg/dL 11/25/2024 10:20 AM EDT [facility] Total Bilirubin 0.7 0.0 - 1.5 mg/dL 11/25/2024 10:20 AM EDT [facility] AST 9(L) 13 - 39 U/L 11/25/2024 10:20 AM EDT [facility] ALT 22 7 - 52 U/L 11/25/2024 10:20 AM EDT [facility] Alkaline Phosphatase 198(H) 36 - 125 U/L 11/25/2024 10:20 AM EDT [facility] Total Protein 7.0 6.4 - 8.9 g/dL 11/25/2024 10:20 AM EDT [facility] Albumin 4.5 3.5 - 5.7 g/dL 11/25/2024 10:20 AM EDT [facility] Osmolality, Calculated 303 278 - 305 mOsm/kg 11/25/2024 10:20 AM EDT [facility] EGFR 56 11/25/2024 10:20 AM EDT [facility] Comment:As of 2021, the estimated [...] LAB BLOOD ORDERABLES Final Resu lt [facility] [address] [facility] [place] [address], [facility] * (ABNORMAL) Post Kidney Transplant Urine [...] - GENERAL OR DERABLES Final Result [facility] [address] [place] [id number], [facility] * (ABNORMAL) Renal Function Panel w/EGFR (11/11/2024 9:13 AM EDT) Only the most recent of36 resultswithin the time period is included. Sodium 141 133 - 146 mmol/L 11/11/2024 10:51 AM EDT HEALTH LAB Potassium 4.6 3.5 - 5.3 mmol/L 11/11/2024 10:51 AM EDT [facility] Chloride 108 98 - 110 mmol/L 11/11/2024 10:51 AM EDT [facility] CO2 24 21 - 33 mmol/L 11/11/2024 10:51 AM EDT [facility] Anion Gap 9 3 - 16 mmol/L 11/11/2024 10:51 AM EDT [facility] BUN 27(H) 7 - 25 mg/dL 11/11/2024 10:51 AM EDT [facility] Creatinine 1.14 0.60 - 1.30 mg/dL 11/11/2024 10:51 AM EDT [facility] Glucose 97 70 - 100 mg/dL 11/11/2024 10:51 AM EDT [facility] Calcium 8.6 8.6 - 10.3 mg/dL 11/11/2024 10:51 AM EDT [facility] Phosphorus 4.4 2.1 - 4.7 mg/dL 11/11/2024 10:51 AM EDT [facility] Albumin 3.8 3.5 - 5.7 g/dL 11/11/2024 10:51 AM EDT [facility] Osmolality, Calculated 297 278 - 305 mOsm/kg 11/11/2024 10:51 AM EDT [facility] EGFR 83 11/11/2024 10:51 AM EDT [facility] Comment:As of 2021, the estimated [...] AM EDT 11/11/2024 10:19 AM EDT Narrative [facility] - 11/11/2024 10:51 AM EDT Standing orders to be drawn: Every Sunday and before 9am and prior to patient taking morning medications. Liver Transplant Fax results to [phone] Call Critical results to [phone] DO NOT REPLACE RENAL PANEL or HEPATIC FUNCTION PANEL w/ CMP, BMP or HEPATIC PROFILE us Harvey Domínguez III, MD LAB BLOOD ORDERABLE S Final Result [facility] [address] * Protein / creatinine ratio, urine [...] ORDERABLES Final Re sult Performing Organization Address City/[facility] [[email or web address]] Co de Phone Number [facility] [address] [address], [facility] * EKG - scan (11/03/2024 9:07 AM EDT) Only the most recent of2 [...] 100 mg/dL 11/02/2024 5:45 PM EDT [facility] Blood 11/02/2024 5:44 PM EDT 11/02/2024 5:45 PM EDT us Harvey Domínguez III, MD POINT OF CARE TEST ORDERABLES Final Result Performing Organization Address City/[facility]/ZIP Co de Phone Number [facility] [address] [place] [id number], [facility] * X-ray Portable Abdomen AP view [...] Adrenal gland: No focal nodule seen. Kidneys: Quechan kidneys noted with nonobstructing calcifications on the [...] Adrenal gland: No focal nodule seen. Kidneys: Quechan kidneys noted with nonobstructing calcifications on theright. [...] MD at 10/31/2024 4:38 PM EDT Sveta Mojiac MD IM CT ORDERABLES Final Result * ECG 12-lead (MUSE) (10/31/2024 3:42 PM EDT) Only the most recent of9 resultswithin the time period is included. 10/31/2024 3:42 PM EDT Narrative MUSE - 11/02/2024 6:56 AM EDT Ventricular Rate: 78 BPM Atrial Rate: 78 BPM P-R Interval: 166 ms QRS Duration: 88 ms QT: 400 ms QTc: 456 ms P [place]: 49 degrees R [place]: 3 degrees T [place]: 14 degrees Diagnosis Line: NORMAL SINUS RHYTHM ^ NORMAL ECG ^ ^ Confirmed by MD REID JAMES ([id number]) on 11/02/2024 6:56:52 AM us Priti Alex MARKING STITCHER ECG ORDERABLES Final Result MUSE * US Duplex Bnw-Vju-Nagxnim Comp (10/31/2024 10:19 AM EDT) Only the [...] EXAM: US ABDOMEN LIMITED EXAM: US DUPLEX [id number] COMPLETE INDICATION: Post-op liver transplant COMPARISON: None [...] EXAM: US ABDOMEN LIMITED EXAM: US DUPLEX [id number] COMPLETE INDICATION: Post-op liver transplant COMPARISON: None [...] 10/31/2024 10:35 AM EDT us Beata Horner [facility] US ORDERABLES Final R esult * [...] EXAM: US ABDOMEN LIMITED EXAM: US DUPLEX [id number] COMPLETE INDICATION: Post-op liver transplant COMPARISON: None [...] EXAM: US ABDOMEN LIMITED EXAM: US DUPLEX [id number] COMPLETE INDICATION: Post-op liver transplant COMPARISON: None [...] at 10/31/2024 10:35 AM EDT Beata Horner [facility] US ORDERABLES Final R esult * [...] at 10/31/2024 10:29 AM EDT Beata Horner [facility] US ORDERABLES Final R esult * Prepare RBC, leukoreduced, 1 Units (10/29/2024 6:16 AM EDT) Only the most recent of7 resultswithin the time period is included. Product Code Q6339J37 HCLL Unit Number [id number] [facility]LL Dispense Status Presumed Transfused_PT HCLL Blood Expiration Date [id number] HCLL Coding System [id number] [facility] Blood Bank Product Shay Guzmán MD BLOOD BANK PRODUCT O RDERABLES Final Result [facility] * (ABNORMAL) TEG-Bypass/ECMO/Liver HN (Factor function, Platelet/Fibrin Clot Strength w/Clot Breakdown, Heparinase In All Channels) (10/29/2024 5:07 AM EDT) Only the most recent of13 resultswithin the time period is included. Citrated Kaolin Reaction Time (TEGECMOLIVER) 8.9 4.6 - 9.1 minutes 10/29/2024 7:04 AM EDT [facility] Citrated Kaolin W/Heparinase Reaction Time (TEGECMOLIVER) 7.4 4.3 - 8.3 minutes 10/29/2024 7:04 AM EDT [facility] Citrated Kaolin Maximum Amplitude (TEGECMOLIVER) 52.9 52.0 - 69.0 mm 10/29/2024 7:04 AM EDT [facility] Citrated Functional Fibrinogen W/Heparinase Maximum Amplitude(TEGEC MOLIVER) 20.7 15.0 - 34.0 mm 10/29/2024 7:04 AM EDT [facility] Citrated Rapid Teg W/Heparinase Maximum Amplitude (TEGECMOLIVER) 49.7(L) 53.0 - 69.0 mm 10/29/2024 7:04 AM EDT [facility] Citrated Kaolin w/Heparinase Percent Lysis (TEGECMOLIVER) 0.0 0.0 - 3.2 % 10/29/2024 7:04 AM EDT [facility] Whole Blood (Citrate) 10/29/2024 5:07 AM EDT 10/29/2024 5:10 AM EDT us Kemar Sahni MD LAB BLOOD ORDERABLES Final Result Performing Organization Address [facility] de Phone Number [facility] [address] [facility] * Transfuse RBC Transfusion Rate: Per dept routine (10/28/2024 5:23 PM EDT) Only the most recent of17 resultswithin the time period is included. Shay Guzmán MD NURSING TREATMENT OR DERABLES - BLOOD ADMIN Final Result Performing Organization Address [facility] de Phone Number EXTERNAL * (ABNORMAL) Lactic Acid, STAT (10/28/2024 11:09 AM EDT) Only the most recent of10 resultswithin the time period is included. Lactate 0.3(L) 0.5 - 2.2 mmol/L 10/28/2024 11:37 AM EDT [facility] Plasma 10/28/2024 11:0 9 AM EDT 10/28/2024 11:15 AM EDT Carlos Marks MD LAB BLOOD ORDERABLES Final Result Performing Organization Address [facility] de Phone Number [facility] [address] [facility] * Prepare Platelets, leukoreduced (10/28/2024 6:15 AM EDT) Only the most recent of5 resultswithin the time period is included. Product Code E5795C88 HCLL Unit Number [id number] HCLL Dispense Status Presumed Transfused_PT [facility]LL Blood Expiration Date HCLL Coding System [id number] HCLL Product Code U0715K72 [facility]LL Unit Number [id number] HCLL Dispense Status Presumed Transfused_PT HCLL Blood Expiration Date HCLL Coding System [id number] HCLL Attending Provider Unknown BLOOD BANK PRODUCT OR DERABLES Final Result Performing Organization Address [facility] de Phone Number HCLL * Prepare Fresh Frozen Plasma (10/28/2024 6:15 AM EDT) Only the most recent of5 resultswithin the time period is included. Product Code B6483I89 HCLL Unit Number [id number] HCLL Dispense Status Released from Crossmatch_RE HCLL Blood Expiration Date HCLL Coding System [id number] HCLL Product Code Q9615Z08 HCLL Unit Number [id number] HCLL Dispense Status Presumed Transfused_PT HCLL Blood Expiration Date HCLL Coding System [id number] HCLL Product Code T8722T43 HCLL Unit Number [id number] HCLL Dispense Status Released from Crossmatch_RE HCLL Blood Expiration Date HCLL Coding System [id number] HCLL Product Code M0934E37 HCLL Unit Number [id number] HCLL Dispense Status Presumed Transfused_PT HCLL Blood Expiration Date HCLL Coding System [id number] HCLL Product Code M0763I81 HCLL Unit Number [id number] HCLL Dispense Status Released from Crossmatch_RE HCLL Blood Expiration Date [id number] HCLL Coding System [id number] HCLL us Attending Provider Unknown BLOOD BANK PRODUCT OR DERABLES Final Result Performing Organization Address [facility] de Phone Number HCLL * Prepare Cryoprecipitate, 1 Units (10/28/2024 6:15 AM EDT) Only the most recent of4 resultswithin the time period is included. Product Code S5188T31 HCLL Unit Number [id number] HCLL Dispense Status Presumed Transfused_PT HCLL Blood Expiration Date HCLL Coding System [id number] HCLL Product Code E2862W03 HCLL Unit Number [id number] HCLL Dispense Status Presumed Transfused_PT HCLL Blood Expiration Date HCLL Coding System [id number] HCLL Blood Bank Product us John Pina MD BLOOD BANK PRODUCT ORDERABLES F inal Result HCLL * (ABNORMAL) Blood Gas, Arterial, STAT (10/27/2024 2:40 PM EDT) Only the most recent of6 resultswithin the time period is included. O2 Sat, Arterial 98 10/27/2024 2:46 PM EDT [facility] FIO2 RA 10/27/2024 2:46 PM EDT [facility] pH, Arterial 7.37 7.35 - 7.45 10/27/2024 2:46 PM EDT [facility] pCO2, Arterial 35 35 - 45 mm Hg 10/27/2024 2:46 PM EDT [facility] pO2, Arterial 92 80 - 100 mm Hg 10/27/2024 2:46 PM EDT [facility] HCO3, Arterial 21(L) 22 - 26 mmol/L 10/27/2024 2:46 PM EDT [facility] CO2 Content,Arteri al 21(L) 23 - 27 mmol/L 10/27/2024 2:46 PM EDT [facility] Base Excess, Arterial -4.6(L) -2.0 - 3.0 mmol/L 10/27/2024 2:46 PM EDT [facility] %HBO2, Arterial 95.4 95.0 - 98.0 % 10/27/2024 2:46 PM EDT [facility] Carboxyhemoglo bin, Arterial 1.6 % 10/27/2024 2:46 PM EDT [facility] Comment: CARBOXYHEMOGLOBIN (CO) REFERENCE RANGES: Non-Smokers: <2 % Smokers: <8 % TOXIC: >20 % Methemoglobin, Arterial 1.0 0.0 - 1.5 % 10/27/2024 2:46 PM EDT [facility] Reduced hemoglobin, Arterial 2.1 0.0 - 5.0 % 10/27/2024 2:46 PM EDT [facility] Blood, Arterial 10/27/2024 2 :40 PM EDT 10/27/2024 2:44 PM EDT Narrative [facility]ALTH LAB - 10/27/2024 2:46 PM EDT Post extubation us John Coulter MD LAB BLOOD ORDERABLES Final R esult [facility] [address] [place] [address], [facility] * CARISA Rhythm Strip - Scan (10/27/2024 9:25 AM EDT) Only the most recent of7 resultswithin the time period is included. us [...] IgG Antibody (10/27/2024 8:00 AM EDT) Pathologist [facility] [place] EBV VCA IgG Positive( A) Negative 10/27/2024 11:30 AM EDT [facility] Comment:Presence of detectab le VCA IgG antibodies. 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 EBV IGG NUM 314.00(H) 0.00 - 17.99 U/mL 10/27/2024 11:30 AM EDT [facility] Serum 10/27/2024 8:00 AM EDT 10/27/2024 8:20 AM EDT Kemar Sahni MD LAB BLOOD ORDERABLES Final Result [facility] [address] [place] [address], [facility] * Hemoglobin A1c (10/27/2024 8:00 AM [...] [facility] [[email or web address]] Co de Phone Number [facility] [address] * X-ray Abdomen AP view (10/27/2024 [...] (ABGP) 100 10/27/2024 6:17 AM EDT [facility] pH (ABGP) 7.30(L) 7.35 - 7.45 10/27/2024 6:17 AM EDT [facility] PCO2 (ABGP) 41 35 - 45 mm Hg 10/27/2024 6:17 AM EDT [facility] PO2 (ABGP) 192(H) 80 - 100 mm Hg 10/27/2024 6:17 AM EDT [facility] HCO3 (ABGP) 21(L) 22 - 26 mmol/L 10/27/2024 6:17 AM T [facility] CO2 Content (ABGP) 22(L) 23 - 27 mmol/L 10/27/2024 6:17 AM T [facility] Base Excess (ABGP) -5.7(L) -2.0 - 3.0 mmol/L 10/27/2024 6:17 AM T [facility] Sodium (ABGP) 138 136 - 146 mEq/L 10/27/2024 6:17 AM [facility] Potassium (ABGP) 3.3(L) 3.5 - 5.0 mEq/L 10/27/2024 6:17 AM [facility] Comment:In the event of in-v itro hemolysis, potassium results may be falsely elevated. Always interpret lab results in conjunction with clinical findings. If hemolysis is suspected, a serum sample may be collected for repeat assessment of potassium. Calcium, Free (ABGP) 5.28 4.50 - 5.30 mg/dL 10/27/2024 6:17 AM [facility] Glucose (ABGP) 112(H) 70 - 100 mg/dL 10/27/2024 6:17 AM [facility] Comment:There is interferenc e with whole blood glucose results on this method when Hematocrit is <25% or >60%. HCT (ABGP) 20.0(L) 40.0 - 52.0 % 10/27/2024 6:17 AM [facility] HGB (ABGP) 6.5(L) 14.0 - 18.0 g/dL 10/27/2024 6:17 AM [facility] %HBO2 (ABGP) 96.8 95.0 - 98.0 % 10/27/2024 6:17 AM [facility] Carboxyhgb (ABGP) 2.1 % 025 6:17 AM [facility] Comment: CARBOXYHEMOGLOBIN (CO) REFERENCE RANGES: Non-Smokers: <2 % Smokers: <8 % TOXIC: >20 % Methemoglobin (ABGP) 1.0 0.0 - 1.5 % 10/27/2024 6:17 AM EDT [facility] Reduced Hemoglobin (ABGP) 0.2 0.0 - 5.0 % 10/27/2024 6:17 AM EDT [facility] Lactic Acid (ABGP) 0.4(L) 0.5 - 1.6 mmol/L 10/27/2024 6:17 AM EDT [facility] Blood, Arterial 10/27/2024 6 :09 AM EDT 10/27/2024 6:14 AM EDT Ben Blake MD LAB BLOOD ORDERABLES Final Re sult [facility] [address] [place] [address], [facility] * Transfuse Fresh Frozen Plasma (10/27/2024 [...] Final Resul t Performing Organization Address City/[facility]/ZIP Co de Phone Number [facility] [address] [place] [address] * Surgical Pathology Exam (10/27/2024 2:38 AM EDT) Only the most recent of2 resultswithin the time period is included. Tissue LEFT KIDNEY STRUCTURE / Unknown 10/27/2024 2:38 AM EDT Narrative [facility] - 10/27/2024 12:00 AM EDT CASE: [id number] PATIENT: BLAIR ANDERSON Clinical History: Transplant kidney with bile duct reconstruction Pre-Operative Diagnosis: Acute kidney injury superimposed on CKD Post-Operative Diagnosis: None Given Specimen(s) Submitted: A. baseline renal biopsy ; B. right lobe liver biopsy; C. left lobe liver biopsy CPT Code(s): 95255 X 1; 90061 X 2; 18284 X 4 Additional Information: FINAL DIAGNOSIS: A. [...] parenchyma, which is entirely submitted in cassette [id number] A1. (NAA Mckeon/rr) B. Received in formalin, [...] submitted between blue biopsy sponges in cassette [id number] C1-C2. (NAA Mckeon/ns) Microscopic Description: I, the attending pathologist, have personally reviewed all prosector/resident work and pathology slides to determine final diagnosis. Control Materials Reacted Appropriately. Final Diagnosis performed by CLARE FALL MD Pathologist Electronically signed 10/31/2024 01:07:09 PM The Pathologist signing this report is located at [facility], [address] [place] [address], [id number], , CLIA ID: [id number] ADDENDUM: A. Kidney, allograft, baseline, wedge biopsy: [...] signing this report is located at [facility], [address] [place] [address], [id number], , CLIA ID: [id number] Kemar Sahni MD PATHOLOGY/CYTOLOGY ORDERABL ES Edited Result - Final [facility] * Routine Culture plus Stain (10/27/2024 2:15 AM EDT) Only the most recent of2 resultswithin the time period is included. Gram Stain Result No Polymorphonuclear Leukocytes Seen [facility] Gram Stain Result No Organisms Seen; [facility] Culture Result No Growth After 3 Days [facility] Fluid SPECIMEN FROM KIDNEY / Unknown 10/27/2024 2:15 AM EDT 10/27/2024 4:24 AM EDT Narrative [facility] - 10/30/2024 9:26 AM EDT 1) perfusate Harvey Domínguez III, MD MICROBIOLOGY - GENE RAL ORDERABLES Final Result [facility] [address] [facility]. [address] * Fungus culture (10/27/2024 2:15 AM EDT) Culture Result No Fungus Isolated At 4 Weeks [facility] Fluid SPECIMEN FROM KIDNEY / Unknown 10/27/2024 2:15 AM EDT 10/27/2024 4:24 AM EDT Narrative [facility] - 11/24/2024 7:52 AM EDT 1) perfusate Harvey Domínguez III, MD MICROBIOLOGY - GENE RAL ORDERABLES Final Result Performing Organization Address City/[facility]/ZIP Co de Phone Number [facility] [address] * Anaerobic culture (10/27/2024 2:15 AM EDT) Only the most recent of2 resultswithin the time period is included. Culture Result No Anaerobes Isolated in 5 Days [facility] Fluid SPECIMEN FROM KIDNEY / Unknown 10/27/2024 2:15 AM EDT 10/27/2024 4:24 AM EDT Narrative [facility] - 10/31/2024 11:43 AM EDT 1) perfusate Harvey Domínguez III, MD MICROBIOLOGY - GENE RAL ORDERABLES Final Result Performing Organization Address City/[facility]/ZIP Co de Phone Number [facility] [address] [facility]. [address] * (ABNORMAL) TEG-Standard Global Hemostasis (Rapid TEG with Heparin Effect, Contains a Baseline TEG) (10/27/2024 1:51 AM EDT) Only the most recent of2 resultswithin the time period is included. Citrated Kaolin Reaction Time (TEGHEPARINASE) 10.6(H) 4.6 - 9.1 minutes 10/27/2024 2:44 AM EDT [facility] Citrated Rapid Teg Maximum Amplitude (TEGHEPARINASE) 42.3(L) 52.0 - 70.0 mm 10/27/2024 2:44 AM EDT [facility] Citrated Functional Fibrinogen Maximum Amplitude (TEGHEPARINASE) 15.0 15.0 - 32.0 mm 10/27/2024 2:44 AM EDT [facility] Citrated Kaolin W/Heparinase Reaction Time (TEGHEPARINASE) 10.5(H) 4.3 - 8.3 minutes 10/27/2024 2:44 AM EDT [facility] Citrated Kaolin K-Time (TEGHEPARINASE) 2.9(A) 0.8 - 2.1 minutes 10/27/2024 2:44 AM EDT [facility] Citrated Kaolin Angle (TEGHEPARINASE) 60.4(A) 63.0 - 78.0 degrees 10/27/2024 2:44 AM EDT [facility] Citrated Kaolin Maximum Amplitude (TEGHEPARINASE) 42.9(L) 52.0 - 69.0 mm 10/27/2024 2:44 AM EDT [facility] Citrated Functional Fibrinogen- Fibrinogen Level (TEGHEPARINASE) 273.7(L) 278.0 - 581.0 mg/dL 10/27/2024 2:44 AM EDT [facility] Whole Blood (Citrate) 10/27/2024 1:51 AM EDT 10/27/2024 2:03 AM EDT us John Pina MD LAB BLOOD ORDERABLES Final Resu lt [facility] [address] [id number] * Calcium Free, Serum (10/27/2024 12:13 AM EDT) Only the most recent of2 resultswithin the time period is included. Free Calcium, Ser 5.20 4.40 - 5.40 mg/dL 10/27/2024 12:37 AM EDT [facility] Comment:Free calcium levels vary inversely with pH by approximately 5% for each 0.1 unit of pH change. Assay results have been normalized to pH = 7.40. Serum 10/27/2024 12:1 3 AM EDT 10/27/2024 12:29 AM EDT Narrative [facility] - 10/27/2024 12:37 AM EDT This test has been developed and its performance characteristics determined by [facility] which is certified under [...] Final Resu lt Performing Organization Address City/[facility]/ZIP Co de Phone Number [place] [id number] [address] * Repeat Crossmatch (Recipient Sample) (10/26/2024 4:42 PM EDT) Repeat Cx - Recipient The request and specimen(s) for this test have been received and transported to the [facility] at [address] [place] [address]. The [facility] will report results directly to the client. 10/26/2024 4:49 PM EDT [facility] Whole Blood 10/26/2024 4:42 PM EDT 10/26/2024 4:49 PM EDT Narrative [facility] - 10/26/2024 4:49 PM EDT To be sent to [facility] for Donor UNOS#[id number] cross match with Blair Anderson Sveta Mojica MD LAB BLOOD ORDERABLES Final Resu lt Performing Organization Address [facility]/ZIP Co de Phone Number [facility] [address] * (ABNORMAL) Fibrinogen (10/26/2024 6:10 AM EDT) Only the most recent of2 resultswithin the time period is included. Fibrinogen 160(L) 218 - 406 mg/dL 10/26/2024 6:41 AM EDT [facility] Plasma 10/26/2024 6:10 AM EDT 10/26/2024 6:26 AM EDT Sveta Mojica MD LAB BLOOD ORDERABLES Final Resu lt [facility] [address] * (ABNORMAL) POC INR (10/26/2024 5:16 AM EDT) Only the most recent of6 resultswithin the time period is included. Prothrombin Time INR, POC 2.4(H) 0.8 - 1.4 10/27/2024 6:51 AM EDT [facility] Comment: Test results may vary [...] Final Result Performing Organization Address [facility] [[email or web address]] Co de Phone Number [facility] [address] [facility] * POC Lactate (10/26/2024 5:14 AM EDT) Only the most recent of6 resultswithin the time period is included. POC Lactate 1.76 0.50 - 2.20 mmol/L 10/26/2024 5:31 AM EDT [facility] Blood, Arterial 10/26/2024 5 :14 AM EDT 10/26/2024 5:31 AM EDT Harvey Domínguez III, MD POINT OF CARE TEST ORDERABLES Final Result [facility] [address] [facility]. [address] * POC TCO2 (10/26/2024 5:14 AM EDT) Only the most recent of6 resultswithin the time period is included. POC TCO2, Arterial 23 23 - 27 mmol/L 10/26/2024 5:31 AM EDT [facility] Blood, Arterial 10/26/2024 5 :14 AM EDT 10/26/2024 5:31 AM EDT us Harvey Domínguez III, MD POINT OF CARE TEST ORDERABLES Final Result Performing Organization Address City/[facility]/ZIP Co de Phone Number [facility] [address] [place], [place] [address] [facility]. [address] * POC Sodium (10/26/2024 5:14 AM EDT) Only the most recent of6 resultswithin the time period is included. POC Sodium 138 136 - 146 mmol/L 10/26/2024 5:31 AM EDT [facility] Blood, Arterial 10/26/2024 5 :14 AM EDT 10/26/2024 5:31 AM EDT us Harvey Domínguez III, MD POINT OF CARE TEST ORDERABLES Final Result Performing Organization Address City/[facility]/ZIP Co de Phone Number [facility] [address] [place] [address]. [address] * (ABNORMAL) POC Potassium (10/26/2024 5:14 AM EDT) Only the most recent of6 resultswithin the time period is included. POC Potassium 2.8(LL) 3.5 - 5.3 mmol/L 10/26/2024 5:31 AM EDT [facility] Blood, Arterial 10/26/2024 5 :14 AM EDT 10/26/2024 5:31 AM EDT us Harvey Domínguez III, MD POINT OF CARE TEST ORDERABLES Final Result Performing Organization Address [facility] [[email or web address]] Co de Phone Number [facility] [address] * (ABNORMAL) POC PO2 (10/26/2024 5:14 AM EDT) Only the most recent of6 resultswithin the time period is included. POC pO2, Arterial 133(H) 80 - 100 mm Hg 10/26/2024 5:31 AM EDT [facility] Blood, Arterial 10/26/2024 5 :14 AM EDT 10/26/2024 5:31 AM EDT Harvey Domínguez III, MD POINT OF CARE TEST ORDERABLES Final Result Performing Organization Address [facility] [[email or web address]] Co de Phone Number [facility] [address] [facility]. [address] * POC PCO2 (10/26/2024 5:14 AM EDT) Only the most recent of6 resultswithin the time period is included. POC pCO2, Arterial 45 35 - 45 mm Hg 10/26/2024 5:31 AM EDT [facility] Blood, Arterial 10/26/2024 5 :14 AM EDT 10/26/2024 5:31 AM EDT us Harvey Domínguez III, MD POINT OF CARE TEST ORDERABLES Final Result Performing Organization Address City/[facility] [[email or web address]] Co de Phone Number [facility] [address] * (ABNORMAL) POC O2 SAT (10/26/2024 5:14 AM EDT) Only the most recent of6 resultswithin the time period is included. POC O2 Saturation, Arterial 99(H) 95 - 98 % 10/26/2024 5:31 AM EDT [facility] Blood, Arterial 10/26/2024 5 :14 AM EDT 10/26/2024 5:31 AM EDT us Harvey Domínguez III, MD POINT OF CARE TEST ORDERABLES Final Result Performing Organization Address City/[facility] [[email or web address]] Co de Phone Number [facility] [address] [place] [address]. [address] * POC HCO3 (10/26/2024 5:14 AM EDT) Only the most recent of6 resultswithin the time period is included. POC HCO3, Arterial 22 22 - 26 mmol/L 10/26/2024 5:31 AM EDT [facility] Blood, Arterial 10/26/2024 5 :14 AM EDT 10/26/2024 5:31 AM EDT us Harvey Domínguez III, MD POINT OF CARE TEST ORDERABLES Final Result Performing Organization Address [facility] [[email or web address]] Co de Phone Number [facility] [address] [facility] * POC Chloride (10/26/2024 5:14 AM EDT) Only the most recent of6 resultswithin the time period is included. POC Chloride 104 98 - 110 mmol/L 10/26/2024 5:31 AM EDT [facility] Blood, Arterial 10/26/2024 5 :14 AM EDT 10/26/2024 5:31 AM EDT us Harvey Domínguez III, MD POINT OF CARE TEST ORDERABLES Final Result Performing Organization Address City/[facility] [[email or web address]] Co de Phone Number [facility] [address] [facility] * (ABNORMAL) POC Base Excess (10/26/2024 5:14 AM EDT) Only the most recent of6 resultswithin the time period is included. POC Base Excess, Arterial -5(L) -2 - 3 mmol/L 10/26/2024 5:31 AM EDT [facility] Blood, Arterial 10/26/2024 5 :14 AM EDT 10/26/2024 5:31 AM EDT us Harvey Domínguez III, MD POINT OF CARE TEST ORDERABLES Final Result Performing Organization Address City/[facility] [[email or web address]] Co de Phone Number [facility] [address] [place] [address]. [address] * POC Anion Gap (10/26/2024 5:14 AM EDT) Only the most recent of6 resultswithin the time period is included. POC Anion Gap, Arterial 12 3 - 16 mmol/L 10/26/2024 5:31 AM EDT [facility] Blood, Arterial 10/26/2024 5 :14 AM EDT 10/26/2024 5:31 AM EDT us Harvey Domínguez III, MD POINT OF CARE TEST ORDERABLES Final Result Performing Organization Address [facility] [[email or web address]] Co de Phone Number [facility] [address] * POC Sample Type (10/26/2024 5:14 AM EDT) Only the most recent of6 resultswithin the time period is included. POC Sample Type Arterial 10/26/2024 5:31 AM EDT [facility] Blood, Arterial 10/26/2024 5 :14 AM EDT 10/26/2024 5:31 AM EDT us Harvey Domínguez III, MD POINT OF CARE TEST ORDERABLES Final Result Performing Organization Address City/[facility] [[email or web address]] Co de Phone Number [facility] [address] [facility] * (ABNORMAL) POC pH (10/26/2024 5:14 AM EDT) Only the most recent of6 resultswithin the time period is included. POC pH, Arterial 7.29(L) 7.35 - 7.45 10/26/2024 5:31 AM EDT [facility] Blood, Arterial 10/26/2024 5 :14 AM EDT 10/26/2024 5:31 AM EDT us Harvey Domínguez III, MD POINT OF CARE TEST ORDERABLES Final Result Performing Organization Address City/[facility]/ZIP Co de Phone Number [facility] [address] [facility] * (ABNORMAL) POC hematocrit (10/26/2024 5:14 AM EDT) Only the most recent of6 resultswithin the time period is included. POC Hematocrit 28.0(L) 40 - 52 % 10/26/2024 5:31 AM EDT [facility] Blood, Arterial 10/26/2024 5 :14 AM EDT 10/26/2024 5:31 AM EDT us Harvey Domínguez III, MD POINT OF CARE TEST ORDERABLES Final Result Performing Organization Address [facility] [[email or web address]] Co de Phone Number [facility] [address] [facility] * (ABNORMAL) POC Ionized Calcium (10/26/2024 5:14 AM EDT) Only the most recent of6 resultswithin the time period is included. POC Ionized Calcium 5.50(H) 4.50 - 5.30 mg/dL 10/26/2024 5:31 AM EDT [facility] Blood, Arterial 10/26/2024 5 :14 AM EDT 10/26/2024 5:31 AM EDT us Harvey Domínguez III, MD POINT OF CARE TEST ORDERABLES Final Result Performing Organization Address City/[facility] [[email or web address]] Co de Phone Number [facility] [address] * (ABNORMAL) POC Glucose (10/26/2024 5:14 AM EDT) Only the most recent of6 resultswithin the time period is included. Pathologist [facility] POC Glucose, Arterial 183(H) 70 - 100 mg/dL 10/26/2024 5:31 AM EDT [facility] Blood, Arterial 10/26/2024 5 :14 AM EDT 10/26/2024 5:31 AM EDT Harvey Domínguez III, MD POINT OF CARE TEST ORDERABLES Final Result Performing Organization Address [facility] de Phone Number [facility] [address] * (ABNORMAL) POC Hemoglobin (10/26/2024 5:14 AM EDT) Only the most recent of6 resultswithin the time period is included. [facility] POC Hemoglobin 9.5(L) 14.0 - 18.0 g/dL 10/26/2024 5:31 AM EDT [facility] Blood, Arterial 10/26/2024 5 :14 AM EDT 10/26/2024 5:31 AM EDT Harvey Domínguez III, MD POINT OF CARE TEST ORDERABLES Final Result Performing Organization Address [facility] de Phone Number [facility] [address] * (ABNORMAL) TEG-Global With Lysis (Baseline TEG with LY30, Will NOT Show Heparin Effect) (53:31 AM EDT) Pathologist [facility] [place] Citrated Kaolin Reaction Time (TEGLYSIS) 6.8 4.6 - 9.1 minutes 10/26/2024 5:02 AM EDT [facility] Citrated Rapid Teg Maximum Amplitude (TEGLYSIS) <40.0(L) 52.0 - 70.0 mm 10/26/2024 5:02 AM EDT [facility] Citrated Functional Fibrinogen Maximum Amplitude (TEGLYSIS) <4.0(L) 15.0 - 32.0 mm 10/26/2024 5:02 AM EDT [facility] Citrated Kaolin Percent Lysis (TEGLYSIS) 1.4 0.0 - 2.6 % 10/26/2024 5:02 AM EDT [facility] Whole Blood (Citrate) 10/26/2024 3:31 AM EDT 10/26/2024 3:40 AM EDT Eber Quinones MD LAB BLOOD ORDERABLES Fin al Result [facility] [address] [place] [address], [facility] * CENTRAL LINE SINGLE LUMEN PERFORMABLE (10/25/2024 11:13 PM EDT) Ben Pope MD - 10/25/2024 11:13 PM EDT Ben Blake MD 10/26/2024 7:45 PM [place] Emily Cath Date/Time: 10/25/2024 11:13 PM Performed [...] IgM) Nonreactive 10/25/2024 11:13 PM EDT [facility] Serum 10/25/2024 10:1 7 PM EDT 10/25/2024 10:17 PM EDT Narrative [facility] - 10/25/2024 11:13 PM EDT HAV antibodies not detected Aysha Gill MD LAB BLOOD ORDERABLES F inal Result [facility] [address] * Iron Studies (Iron + TIBC) (10/25/2024 10:17 PM EDT) Only the most recent of2 resultswithin the time period is included. Iron 128 50 - 212 ug/dL 10/25/2024 10:44 PM EDT [facility] % Iron Saturation SEE COMMENT 15.0 - 55.0 % 10/25/2024 10:44 PM EDT [facility] Comment:Unable to calculate result because contributing result outside reportable range.. TIBC SEE COMMENT 261 - 462 ug/dL 10/25/2024 10:44 PM EDT [facility] Comment:Unable to calculate result because contributing result outside reportable range.. Serum 10/25/2024 10:1 7 PM EDT 10/25/2024 10:17 PM EDT Aysha Gill MD LAB BLOOD ORDERABLES F inal Result Performing Organization Address City/[facility]/ZIP Co de Phone Number [facility] [address] [facility]. [address] * Hepatitis B Core Antibody (10/25/2024 10:17 PM EDT) Hep B Core Total Ab Nonreactive Nonreactive 10/25/2024 11:07 PM EDT [facility] Comment:Health Department no tified in accordance with reportable infectious disease guidelines. Serum 10/25/2024 10:1 7 PM EDT 10/25/2024 10:17 PM EDT Narrative [facility] - 10/25/2024 11:07 PM EDT A nonreactive final interpretation indicates that anti-HBc antibodies were not detected in the sample; it is possible that the individual is not infected with HBV. Aysha Gill MD LAB BLOOD ORDERABLES F inal Result Performing Organization Address [facility] [[email or web address]] Co de Phone Number [facility] [address] [facility] [address] * Hepatitis C Antibody (10/25/2024 10:17 PM EDT) Only the most recent of3 resultswithin the time period is included. HCV Ab Nonreactive Nonreactive 10/25/2024 11:16 PM EDT [facility] Comment:Health Department no tified in accordance with reportable infectious disease guidelines. Serum 10/25/2024 10:1 7 PM EDT 10/25/2024 10:17 PM EDT Narrative [facility] - 10/25/2024 11:16 PM EDT Antibodies to HCV not detected; does not exclude the possibility of exposure to HCV. Aysha Gill MD LAB BLOOD ORDERABLES F inal Result [facility] [address] * HIV 1+2 Antibody/Antigen with Reflex (10/25/2024 10:17 PM EDT) Only the most recent of2 resultswithin the time period is included. HIV 1+2 AB/AGN Nonreactive Nonreactive 10/25/2024 11:03 PM EDT [facility] Serum 10/25/2024 10:1 7 PM EDT 10/25/2024 10:16 PM EDT Narrative [facility] - 10/25/2024 11:03 PM EDT \HIVRNR us Aysha Gill MD LAB BLOOD ORDERABLES F inal Result Performing Organization Address City/[facility] [[email or web address]] Co de Phone Number [facility] [address] [facility]. [address] * (ABNORMAL) Hepatitis B Surface Antibody, Quantitati (10/25/2024 10:17 PM EDT) Only the most recent of3 resultswithin the time period is included. HBSAB NUMBER 10.70(H) 0.00 - 9.99 mIU/mL 10/25/2024 11:52 PM EDT [facility] Hep B S Ab Equivocal (A) Nonreactive 10/25/2024 11:52 PM EDT [facility] Serum 10/25/2024 10:1 7 PM EDT 10/25/2024 10:17 PM EDT us Aysha Gill MD LAB BLOOD ORDERABLES F inal Result Performing Organization Address City/[facility]/ZIP Co de Phone Number [facility] [address] [facility]. [address] * Hepatitis B surface antigen (10/25/2024 10:17 PM EDT) Only the most recent of3 resultswithin the time period is included. Hep B Surface Ag Nonreactive Nonreactive 10/25/2024 11:12 PM EDT [facility] Comment:Health Department no tified in accordance with reportable infectious disease guidelines. Serum 10/25/2024 10:1 7 PM EDT 10/25/2024 10:17 PM EDT Narrative [facility] - 10/25/2024 11:12 PM EDT Specimen is considered negative for HBsAg. us Aysha Gill MD LAB BLOOD ORDERABLES F inal Result Performing Organization Address City/[facility]/ZIP Co de Phone Number [facility] [address] * (ABNORMAL) APTT, NO ANTICOAGULANT (10/25/2024 10:17 PM EDT) aPTT 41.7(H) 25.5 - 35.0 seconds 10/25/2024 10:36 PM EDT [facility] Plasma 10/25/2024 10:1 7 PM EDT 10/25/2024 10:17 PM EDT us Aysha Gill MD LAB BLOOD ORDERABLES F inal Result Performing Organization Address [facility] [[email or web address]] Co de Phone Number [facility] [address] [place] [address]. [address] * PTH (10/25/2024 10:17 PM EDT) PTH 36.0 12.0 - 88.0 pg/mL 10/25/2024 11:01 PM EDT [facility] Serum 10/25/2024 10:1 7 PM EDT 10/25/2024 10:17 PM EDT us Aysha Gill MD LAB BLOOD ORDERABLES F inal Result Performing Organization Address City/[facility] [[email or web address]] Co de Phone Number [facility] [address] [place] [address]. [address] * (ABNORMAL) Ferritin (10/25/2024 10:17 PM EDT) Only the most recent of2 resultswithin the time period is included. Ferritin 623.2(H) 23.9 - 336.2 ng/mL 10/25/2024 11:02 PM EDT [facility] Serum 10/25/2024 10:1 7 PM EDT 10/25/2024 10:17 PM EDT us Aysha Gill MD LAB BLOOD ORDERABLES F inal Result [facility] [address] [place] [address], [facility] * (ABNORMAL) Venous Blood Gas, Line/Syringe (10/25/2024 10:00 PM EDT) Only the most recent of3 resultswithin the time period is included. Pathologist [facility] [place] PH-Line Draw 7.38 7.32 - 7.42 10/25/2024 10:08 PM EDT [facility] PCO2-Line Draw 33(L) 41 - 51 mm Hg 10/25/2024 10:08 PM EDT [facility] PO2-Line Draw 33 25 - 40 mm Hg 10/25/2024 10:08 PM EDT [facility] HCO3-Line Draw 20(L) 24 - 28 mmol/L 10/25/2024 10:08 PM EDT [facility] CO2 Content-Line Draw 21(L) 25 - 29 mmol/L 10/25/2024 10:08 PM EDT [facility] Base Excess-Line Draw -5.0(L) -2.0 - 3.0 mmol/L 10/25/2024 10:08 PM EDT [facility] %HBO2-Line Draw 53.8 40.0 - 70.0 % 10/25/2024 10:08 PM EDT [facility] Carboxyhgb-Ludivina e Draw 1.9 % 10/25/2024 10:08 PM EDT [facility] Comment: CARBOXYHEMOGLOBIN (CO) REFERENCE RANGES: Non-Smokers: <2 % Smokers: <8 % TOXIC: >20 % Methemoglobin- Line Draw 0.2 0.0 - 1.5 % 10/25/2024 10:08 PM EDT [facility] Reduced Hemoglobin-Ludivina e Draw 44.1(H) 0.0 - 5.0 % 10/25/2024 10:08 PM EDT [facility] Venous, Line Draw 10/25/2024 10:00 PM EDT 10/25/2024 10:04 PM EDT Aysha Gill MD LAB BLOOD ORDERABLES F inal Result Performing Organization Address [facility] [[email or web address]] Co de Phone Number [facility] [address] [place] [address]. [address] * Donor Specific Antibody (DSA) (10/25/2024 10:00 PM EDT) AntiDonor Antibodies The request and specimen(s) for this test have been received and transported to the [facility] at [address] [place] [address]. The [facility] will report results directly to the client. 10/25/2024 10:20 PM EDT [facility] Comment:Testing performed by [facility], [facility], [address] [place] [address]. The [facility] report has been forwarded to the appropriate ordering location. Please refer to this report for patient results. Serum 10/25/2024 10:0 0 PM EDT 10/25/2024 10:20 PM EDT Aysha Gill MD LAB BLOOD ORDERABLES F inal Result Performing Organization Address [facility] de Phone Number [facility] [address] [place] [address]. [address] * Hepatitis C RNA, Quant Reflex to Genotyp (10/25/2024 8:18 PM EDT) Pathologist [facility] [place] International Units Not Detected IU/mL 10/27/2024 11:03 AM EDT [facility] Comment:Test methodology for HCV RNA [...] F inal Result Performing Organization Address City/[facility]/ZIP Co de Phone Number [facility] [address] * Toxoplasma gondii antibody, IgG (10/25/2024 8:18 PM EDT) Only the most recent of2 resultswithin the time period is included. Toxoplasma Gondii IgG <3.0 0.0 - 7.1 IU/mL 10/27/2024 7:55 AM EDT [facility] Comment: Negative <7.2 Equivocal 7.2 - 8.7 Positive >8.7 Serum 10/25/2024 8:18 PM EDT 10/27/2024 8:06 AM EDT Narrative [facility] - 10/27/2024 8:06 AM EDT PERFORMED AT: [facility] [address] [id number] NUT FORMER: Bassam Khalil, PhD PHONE: [phone] Aysha Gill MD LAB BLOOD ORDERABLES F inal Result Performing Organization Address [facility] [[email or web address]] Co de Phone Number [facility] [address] * ABO/Rh (10/25/2024 7:46 PM EDT) Only the most recent of5 resultswithin the time period is included. ABO Grouping O 10/25/2024 10:23 PM EDT [facility] Rh Type Positive 10/25/2024 10:23 PM EDT [facility] Blood 10/25/2024 7:46 PM EDT 10/25/2024 9:54 PM EDT Ben Blake MD BLOOD BANK TEST ORDERABLES Fi nal Result [facility] [address] [place] [address], [facility] * Antibody Screen (10/25/2024 7:46 PM EDT) Only the most recent of3 resultswithin the time period is included. Antibody Screen Negative 10/25/2024 10:41 PM EDT [facility] Blood 10/25/2024 7:46 PM EDT 10/25/2024 9:54 PM EDT Narrative [facility] - 10/25/2024 10:44 PM EDT Testing performed by [facility] Ben Blake MD BLOOD BANK TEST ORDERABLES Fi nal Result [facility] [address] * Hox - HLA Antibody-Detailed Report (10/22/2024 12:32 PM EDT) 10/22/2024 12:3 2 PM EDT us Abdulkadir Gaspar MD LAB BLOOD ORDERABLES Final Resul t [facility] [address] [place] [address] * HOX - HLA CROSSMATCH + Detailed Antibody (10/20/2024 5:04 PM EDT) 10/20/2024 5:04 PM EDT us Abdulkadir Gaspar MD LAB BLOOD ORDERABLES Final Resul t [facility] [address] [place] [address] * Hox - ABO Typing Report (10/20/2024 5:03 PM EDT) 10/20/2024 5:03 PM EDT us Abdulkadir Gaspar MD LAB BLOOD ORDERABLES Final Resul t [facility] [address] [place] [address] * X-ray Comparison Images (10/20/2024 9:10 AM EDT) Only the most recent of7 resultswithin the time period is included. Narrative EXTERNAL - 10/20/2024 9:10 AM EDT Images associated with this accession number were presented to us for comparison to an examination performed here. us Provider Not In System IMG DIAGNOSTIC IMAGING OR DERABLES Final Result Performing Organization Address City/[facility]/ZIP Co de Phone Number EXTERNAL * PRA-HLA Ab Screen (Cytotoxic) (10/15/2024 6:08 AM EDT) Pathologist [facility] The request and specimen(s) for this test have been received and transported to the [facility] at [address] [place] [address]. The [facility] will report results directly to the client. 10/15/2024 6:42 AM EDT [facility] Comment:The request and spec imen(s) for this test have been received and transported to the [facility] at [address] [place] [address]. The [facility] will report results directly to the client. Serum 10/15/2024 6:08 AM EDT 10/15/2024 6:42 AM EDT us Cosmo Pacheco MD LAB BLOOD ORDERABLES Final Resul t Performing Organization Address [facility] [[email or web address]] Co de Phone Number [facility] [address] [place] [address] * LEFT HEART CATH (10/14/2024 2:09 PM EDT) 10/14/2024 11:4 7 AM EDT Narrative [facility] - 10/14/2024 9:27 PM EDT *[facility]* Cardiac Cable Operator [address] [place] [address] CATHETERIZATION LAB STUDY Patient: Blair Anderson Age: [...] manner. 3. Right radial artery access. A 3My93zj Glidesheath - Slender - .021 sheath was [...] + !LV pressure s/d, ed !112, 22, dP/aq=7270yr Hg/s! + + + !Aortic pressure s/d (m)!106/58 (75) ! + + + ATTESTATION: Dr. Matta was present for the entire procedure. Dr. Jay Quan was the initial author of this report. Prepared and electronically signed by Irving Matta MD [id number]:50 Procedure Note Irving Matta MD - 10/14/2024 *[facility]* Cardiac Cable Operator [address] [place] [address] CATHETERIZATION LAB STUDY Patient: Blair Anderson Age: [...] manner. 3. Right radial artery access. A 1Ge68rt Glidesheath - Slender - .021sheath was advanced [...] complications. Contrast: Omnipaque 350 25ml (total dose). [id number] 125ml (wasted). Radiation: Fluoroscopy time: 15min. Total [...] + !LV pressure s/d, ed !112/, 22, dP/fu=1301hq Hg/s! + + + !Aortic pressure s/d (m)!106/58 (75) ! + + + ATTESTATION: Dr. Matta was present for the entire procedure. Dr. Jay Quan wasthe initial author of this report. Prepared and electronically signed by Irving Matta MD [id number]:50 [place] [id number] Final Result [facility] * Cardiac Cath Documents [...] mL of GADOBUTROL 1 MMOL/ML INTRAVENOUS SYRINGE ([facility]) administered intravenously COMPARISON: CT 09/03/2024. Ultrasound [...] mL of GADOBUTROL 1 MMOL/ML INTRAVENOUS SYRINGE ([facility])administered intravenously COMPARISON: CT 09/03/2024. Ultrasound 10/07/2024. [...] 90 ug/dL 10/13/2024 7:16 AM EDT [facility] Comment: HEMOLYSIS EVIDENT. RESULTS MAY BE INFLUENCED. Critical Result [id number] Called to and read back by: KEY MELO RN at: 10/13/2024 07:15:55 by:NISREEN Plasma 10/13/2024 5:35 AM EDT 10/13/2024 6:19 AM EDT us Ellis Mays DO LAB BLOOD ORDERABLES Final Resul t [facility] [address] * Vancomycin, random (10/11/2024 3:02 AM EDT) Only the most recent of5 resultswithin the time period is included. Vancomycin Random 13.4 ug/mL 10/11/2024 3:37 AM EDT [facility] Comment:Reference range not established for this test. Plasma 10/11/2024 3:02 AM EDT 10/11/2024 3:08 AM EDT us Jodi Ortiz PharmD LAB BLOOD ORDERABLES Final Result [facility] [address] * IR Paracentesis incl imaging guide [...] diagnostic and therapeutic paracentesis. Bakari Wahl CNP, Gasoline Tester Procedure and Findings: The procedure was performed [...] for diagnostic andtherapeutic paracentesis. Bakari Wahl CNP, Gasoline Tester Procedure and Findings: The procedure was performed [...] 1:51 PM EDT) Only the most recent of2 resultswithin the time period is included. Gram Stain Result Cytospin Results: Recommend LAB Gram Stain Result Polymorphonuclear Leukocytes Seen; [facility] Gram Stain Result No Organisms Seen; [facility] Culture Result No Growth After 5 Days [facility] Fluid ABDOMEN / Unknown 10/10/2024 1:51 PM EDT 10/10/2024 3:56 PM EDT us Gerri Peterson MD MICROBIOLOGY - GENERAL ORDERABL ES Final Result [facility] [address] * (ABNORMAL) Body fluid cell count (10/10/2024 1:51 PM EDT) Only the most recent of2 resultswithin the time period is included. Color, Fluid Yellow(A) Colorless, Pale Yellow 10/10/2024 5:29 PM EDT [facility] Clarity, Fluid Clear 10/10/2024 5:29 PM EDT [facility] Neutrophil %, Fluid 9 % 10/10/2024 5:29 PM EDT [facility] Lymphocytes %, Fluid 13 % 10/10/2024 5:29 PM EDT [facility] Mesothelial %, Fluid 6 % 10/10/2024 5:29 PM EDT [facility] Macrophage %, Fluid 72 % 10/10/2024 5:29 PM EDT [facility] RBC, Fluid 2,662 /uL 10/10/2024 4:41 PM EDT [facility] Total Nucleated Cells, Fluid 89 /uL 10/10/2024 4:41 PM EDT [facility] Comment:Total Nucleated Cell s represent WBCs and other nucleated cells in the fluid such as lining cells. Ascitic Fluid ABDOMEN / Unknown 1:51 PM EDT 10/10/2024 3:56 PM EDT us Gerri Peterson MD BODY FLUIDS AND STOOLS ORDERABL ES Final Result [facility] [address] * UPPER GI ENDOSCOPY (10/10/2024 11:48 AM EDT) 10/10/2024 11:4 8 AM EDT Narrative [facility] - 10/10/2024 12:34 PM EDT [id number] Procedure Date: 10/10/2024 11:48 AM Patient Name: Blair Anderson Date of : 1985 Admit Type: Inpatient Age: 39 Gender: Male Note Status: Finalized Attending MD: Lino Soto MD, [id number] Procedure: Upper GI endoscopy Indications: Gastroesopahgeal variceal [...] verified by the physician, the nurse, the mine engineering superintendent and the chemical laboratory technician in the pre-procedure area in [...] to hypotension Procedure Code(s): --- Professional --- 49290, GC, Esophagogastroduodenoscopy, flexible, transoral; diagnostic, including collection of specimen(s) by brushing or washing, when performed (separate procedure) Diagnosis Code(s): --- Professional --- I85.00, Esophageal 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 All rights reserved. The codes documented in this report are preliminary and upon rug sample beveler review may be revised to meet current compliance requirements. Attending Participation: I was present and participated during the entire procedure, including non-albarado portions. Lino Soto MD Lino Soot MD 10/10/2024 12:34:37 PM This report has been signed electronically.MD Vernon Appiah MD Gerri Peterson MD 10/10/2024 12:29:47 PM Total Procedure Duration Time 0 hours 7 minutes 12 seconds Scope In: 12:10:16 PM Scope Out: 12:17:[address] [place] [address], [address] us Provider Not In System PROCEDURE/MINOR SURGICAL ORDERABLES Final Result [facility] * ECHO STRESS W/ CONTRAST (10/09/2024 4:37 PM EDT) Anatomical Region Laterality Modality Chest Ultrasound 10/09/2024 2:40 PM EDT Narrative 10/09/2024 6:45 PM EDT * [facility]* [facility] [place] [address] Stress Echocardiogram Patient: Blair Anderson Room: 8142 Height: 76in MR Number: [id number] : 1985 Weight: 262lb Account: [id number] Gender: M BP: 125 / 77 Study Date: 10/09/2024 Age: 39 BSA: 2.48m^2 Referring physician: Gerri Peterson Interpreting physician: Tonya Henriquez MD FELLOW Lisa Jha MD PERFORMING Tonya Henriquez MD MARKETING PROPOSAL SPECIALIST [employer] ORDERING Gerri Peterson REFERRING [...] was augmented by the addition of hand reinspector and leg lifts. The infusion was terminated [...] at baseline or with provocation, shows no grskb-aj-rlfa atrial level shunt. - Pulmonary arteries: Systolic [...] at baseline or with provocation, shows no egnft-yz-lnqv atrial level shunt. Pulmonary artery: - Systolic [...] at baseline or with provocation, shows no kydfr-kk-nwpn atrial level shunt. Pericardium: - There is [...] peak heart rate and blood pressure was 03441lc Hg/min. Stress testing did not produce any [...] Reviewed and confirmed by Tonya Henriquez MD [id number]:45:20 Procedure Note Tonya Henriquez MD - 10/09/2024 * [facility]* [address] [place] [address] Stress Echocardiogram Patient: Blair Anderson Room: 8142 Height: 76in MR Number: [id number] : 1985 Weight: 262lb Account: [id number] Gender: M BP: 125 / 77 Study Date: 10/09/2024 Age: 39 BSA: 2.48m^2 Referring physician: Gerri Peterson Interpreting physician: Tonya Henriquez MD FELLOW Lisa Jha MD PERFORMING Tonya Henriquez MD MARKETING PROPOSAL SPECIALIST [employer] ORDERING Gerri Peterson REFERRING Gerri Peterson ATTENDING Tequila Newton ADMITTING Gómez Blanchard Procedure:STRESS ECHO - PHARMACOLOGIC Order: Indications: Pre-Operative Clearance (Z01.818). PMH: EtOH Use Disorder. Risk factors: Hypertension. Dyslipidemia. Study data: Height: 76in. 193cm. Weight: 262lb. 118.8kg. The previousstudy was not available, so comparison was made to the report of 07/15/2024. Study status: Routine. Procedure[facility]. Intravenous [...] was augmented by the addition of hand reinspector and leg lifts. The infusion was terminated [...] at baseline or with provocation, shows no rcpeq-fk-xeys atrial level shunt. - Pulmonary arteries: Systolic [...] study at baseline or with provocation, showsno knksx-xq-deqb atrial level shunt. Pulmonary artery: - Systolic [...] at baseline or with provocation, shows no vzpzj-um-jsef atrial level shunt. Pericardium: - There is [...] heart rate). The maximal predicted heart rate [id number]. The target heart rate was 152bpm. The target heart rate was achieved.The heart rate response to stress is normal. There is a normal resting blood pressure with an appropriate response to stress. The rate-pressureproduct for the peak heart rate and blood pressure was 35664lh Hg/min. Stress testing did not produce any [...] Reviewed and confirmed by Tonya Henriquez MD [id number] us Gerri Peterson MD CV ECHO ORDERABLES Final Result * Renal Tx Recipient (10/09/2024 4:59 AM EDT) Pathologist [facility] [place] Renal Transplant Recipient The request and specimen(s) for this test have been received and transported to the [facility] at [address] [place] [address]. The [facility] will report results directly to the client. 10/09/2024 7:26 AM EDT [facility] Blood 10/09/2024 4:59 AM EDT 10/09/2024 7:26 AM EDT us Aaron Gonzalez MD LAB BLOOD ORDERABLES Final Resu lt [facility] [address] * (ABNORMAL) MMR(IgG) Panel (Measles, Mumps, Rubella) (10/08/2024 10:25 AM EDT) Only the most recent of2 resultswithin the time period is included. Pathologist [facility] [place] Mumps IgG Positive 10/08/2024 11:39 AM EDT [facility] MUMPS IGG NUM 99.00(H) 0.0 - 8.9 U/mL 10/08/2024 11:39 AM EDT [facility] Rubella IgG Scr Positive 10/08/2024 11:40 AM EDT [facility] RUB NUM 4.15(H) 0.00 - 0.89 INDEX 10/08/2024 11:40 AM EDT [facility] Rubeola Ab, IgG Positive 10/08/2024 11:39 AM EDT [facility] RUB IGG NUM 273.00(H) 0.00 - 13.40 U/mL 10/08/2024 11:39 AM EDT [facility] Serum 10/08/2024 10:2 5 AM EDT 10/08/2024 10:49 AM EDT Narrative [facility] - 10/08/2024 11:40 AM EDT [...] LAB BLOOD ORDERABLES Final Resu lt [facility] [address] * QuantiFERON TB2 Ag (10/08/2024 10:25 AM EDT) QuantiFERON TB2 Ag Value 0.07 10/10/2024 10:41 AM EDT [facility] Plasma 10/08/2024 10:2 5 AM EDT 10/08/2024 11:05 AM EDT Result [facility] Gerri Peterson MD LAB BLOOD ORDERABLES Final Resu lt Performing Organization Address City/[facility]/ZIP Co de Phone Number [facility] [address] [facility]. [address] * QuantiFERON TB1 Ag (10/08/2024 10:25 AM EDT) QuantiFERON TB1 Ag Value 0.06 10/10/2024 10:41 AM EDT [facility] Plasma 10/08/2024 10:2 5 AM EDT 10/08/2024 11:05 AM EDT Result [facility] Gerri Peterson MD LAB BLOOD ORDERABLES Final Resu lt Performing Organization Address City/[facility]/ZIP Co de Phone Number [facility] [address] * QuantiFERON Nil (10/08/2024 10:25 AM EDT) QuantiFERON Nil 0.06 10:41 AM EDT [facility] Plasma 10/08/2024 10:2 5 AM EDT 10/08/2024 11:05 AM EDT Gerri Peterson MD LAB BLOOD ORDERABLES Final Resu lt Performing Organization Address City/[facility]/ZIP Co de Phone Number [facility] [address] [facility] * QuantiFERON Mitogen (10/08/2024 10:25 AM EDT) QuantiFERON Interpretation Negative Negative 10/10/2024 10:41 AM EDT [facility] Comment:Negative result geovanny cates M. tuberculosis infection is NOT likely. Negative results do not preclude tuberculosis infection (especially in immunosuppressed patients). Negative results have a TB antigen minus Nil value less than 0.35 IU/mL. In cases with high suspicion of disease, retesting or additional testing with medical evaluation may be useful. QuantiFERON Mitogen 4.87 10/10 10:41 AM EDT [facility] Plasma 10/08/2024 10:2 5 AM EDT 10/08/2024 11:05 AM EDT Narrative [facility] - 10/10/2024 10:41 AM EDT [...] LAB BLOOD ORDERABLES Final Resu lt [facility] [address] [facility] * (ABNORMAL) Vitamin D 25 Hydroxy (10/08/2024 10:25 AM EDT) Vit D, 25-Hydroxy 7.1(L) 30.0 - 100.0 ng/mL 10/08/2024 11:36 AM EDT [facility] Comment: Vitamin D deficiency has been defined by the [place] of Medicine (IOM) and an Endocrine Society [...] LAB BLOOD ORDERABLES Final Resu lt [facility] [address] [facility] * Reticulocyte Count, Auto (10/08/2024 7:41 AM EDT) Retic Ct Pct 1.35 0.50 - 2.00 % 10/08/2024 9:12 AM EDT [facility] Retic Ct Abs 26,190 25,000 - 90,000 /uL 10/08/2024 9:14 AM EDT [facility] Immature Retic Fract 0.37 0.09 - 0.56 10/08/2024 9:12 AM EDT [facility] Whole Blood 10/08/2024 7:41 AM EDT 10/08/2024 8:51 AM EDT Gómez Blanchard MD LAB BLOOD ORDERABLES Final Res ult Performing Organization Address [facility]/ZIP Co de Phone Number [facility] [address] * (ABNORMAL) Haptoglobin (10/08/2024 7:41 AM EDT) Haptoglobin <30(L) 44 - 215 mg/dL 10/08/2024 8:53 AM EDT [facility] Serum 10/08/2024 7:41 AM EDT 10/08/2024 7:51 AM EDT us Kush Posada MD, PhD LAB BLOOD ORDERABLES Final Result Performing Organization Address [facility] [[email or web address] Co de Phone Number [facility] [address] [facility] * (ABNORMAL) Lactate dehydrogenase (10/08/2024 5:36 AM EDT) LD 102(L) 110 - 270 U/L 10/08/2024 8:20 AM EDT [facility] Plasma 10/08/2024 5:36 AM EDT 10/08/2024 7:58 AM EDT us Gómez Blanchard MD LAB BLOOD ORDERABLES Final Res ult Performing Organization Address [facility] [[email or web address]] Co de Phone Number [facility] [address] [facility] * Enteric Pathogen Panel (10/07/2024 10:50 PM EDT) Only the most recent of2 resultswithin the time period is included. Campylobacter Group (C. ecoli, C. jejuni, C. trino) Not Detected Not Detected 10/08/2024 4:40 AM EDT [facility] Salmonella species Not Detected Not Detected 10/08/2024 4:40 AM EDT [facility] Shigella species Not Detected Not Detected 10/08/2024 4:40 AM EDT [facility] Vibrio Group (Vibrio cholerae, Vibrio parahaemolyticus) Not Detected Not Detected 10/08/2024 4:40 AM EDT [facility] Yersinia enterocolitica Not Detected Not Detected 10/08/2024 4:40 AM EDT [facility] Shiga toxin 1 Not Detected Not Detected 10/08/2024 4:40 AM EDT [facility] Shiga toxin 2 Not Detected Not Detected 10/08/2024 4:40 AM EDT [facility] Norovirus Not Detected Not Detected 10/08/2024 4:40 AM EDT [facility] Rotavirus Not Detected Not Detected 10/08/2024 4:40 AM EDT [facility] Comment: The Enteric Pathogen Panel [...] AND STOOLS ORDERABLE S Final Result [facility] [address] [place] [address], [facility] * Urine Drug Confirmation (10/07/2024 10:50 PM EDT) Only the most recent of2 resultswithin the time period is included. BARBITURATES NOT PRESENT 10/09/2024 1:33 PM EDT [facility] BENZODIAZEPINES PRESENT 1:33 PM EDT [facility] Nordiazepam 3 ng/mL 10/09/2024 1:33 PM EDT [facility] Temazepam 6 ng/mL 10/09/2024 1:33 PM EDT [facility] CANNABINOIDS NOT PRESENT 10/09/2024 1:33 PM EDT [facility] SHREDDER PICKER STIMULANTS NOT PRESENT 1:33 PM EDT [facility] OPIOID ANALGESICS PRESENT 025 1:33 PM EDT [facility] Oxycodone 300 ng/mL 10/09/2024 1:33 PM EDT [facility] Oxymorphone 32 ng/mL 10/09/2024 1:33 PM EDT [facility] Tramadol >1000 ng/mL 10/09/2024 1:33 PM EDT [facility] OPIOID ANTAGONISTS NOT PRESENT 10/09 1:33 PM EDT [facility] SEDATIVES/MUSCLE RELAXANTS NOT PRESENT 10/09/2024 1:33 PM EDT [facility] TRICYCLIC ANTIDEPRESSANTS NOT PRESENT 10/09/2024 1:33 PM EDT [facility] Urine 10/07/2024 10:5 0 PM EDT 10/08/2024 3:00 AM EDT Gerri Peterson MD URINE ORDERABLES Final Result Performing Organization Address City/[facility] [[email or web address]] Co de Phone Number [facility] [address] [facility] * Giardia Cryptosporidium Antigens (10/07/2024 10:50 PM EDT) Cryptosporidium Ag Negative Negative 2024 7:59 AM EDT [facility] Giardia Ag Negative Negative 10/08/2024 7:59 AM EDT [facility] Comment: Detection of Giardia and Cryptosporidium antigen is more sensitive and specific than microscopy. Because antigens are shed continuously, repeat testing is rarely warranted. Feces 10/07/2024 10:5 0 PM EDT 10/08/2024 1:53 AM EDT Comment:F Bisi Hernandez DO MICROBIOLOGY - GENERAL ORDERABLE S Final Result Performing Organization Address City/[facility] [[email or web address]] Co de Phone Number [facility] [address] [facility] * Comprehensive Drug Screen (10/07/2024 10:50 PM EDT) Only the most recent of2 resultswithin the time period is included. Creatinine, Ur CANCELED mg/dL 10/08/2024 7:09 AM EDT [facility] Comment:The released value 8 7.30 was canceled by YAQUELIN on 10/08/2024 07:09 BARBITURATES CANCELED [facility] Butalbital CANCELED [facility] Phenobarbital CANCELED [facility] Secobarbital CANCELED [facility] BENZODIAZEPINES CANCELED [facility] Alprazolam CANCELED [facility] Clonazepam CANCELED [facility] Diazepam CANCELED [facility] Alpha-Hydroxyalprazo mcknight CANCELED [facility] Lorazepam CANCELED [facility] Midazolam CANCELED [facility] Nordiazepam CANCELED [facility] Oxazepam CANCELED [facility] Temazepam CANCELED [facility] CANNABINOIDS CANCELED [facility] THC-COOH CANCELED [facility] SHREDDER PICKER STIMULANTS CANCELED [facility] Cocaine Metabolite(benzoylec gonine) CANCELED [facility] Amphetamine CANCELED [facility] Methamphetamine CANCELED [facility] MDA CANCELED [facility] MDEA CANCELED [facility] Phencyclindine (PCP) CANCELED [facility] OPIOID ANALGESICS CANCELED [facility] Heroin Metabolite(6-RAMONA) CANCELED [facility] Codeine CANCELED [facility] Morphine CANCELED [facility] Hydrocodone CANCELED [facility] Hydromorphone CANCELED [facility] Oxycodone CANCELED [facility] Oxymorphone CANCELED [facility] Meperidine CANCELED [facility] Normeperidine CANCELED [facility] Methadone CANCELED [facility] Methadone Metabolite (EDDP) CANCELED [facility] Tramadol CANCELED [facility] Fentanyl CANCELED [facility] Norfentanyl CANCELED [facility] Sufentanil CANCELED [facility] OPIOID ANTAGONISTS CANCELED [facility] Buprenorphine CANCELED [facility] Norbuprenorphine CANCELED [facility] Naltrexone CANCELED [facility] Naloxone CANCELED [facility] SEDATIVES/MUSCLE RELAXANTS CANCELED [facility] Carisoprodol CANCELED [facility] Meprobamate [facility]ELED [facility] TRICYCLIC ANTIDEPRESSANTS CANCELED [facility] Amitriptyline [facility]ED [facility] Clomipramine [facility]ED [facility] Desipramine [facility]ED [facility] Doxepin CANCELED [facility] Imipramine CANCELED [facility] Nortriptyline CANCELED [facility] Urine Creatinine CANCELED mg/dL [facility] Nitrite CANCELED [facility] Glutaraldehyde CANCELED [facility] pH CANCELED 10/08/2024 7:09 AM EDT [facility] Comment:The released value 5 .6 was canceled by YAQUELIN on 10/08/2024 07:09 Specific [place] CANCELED 10/09/19 7:09 AM EDT [facility] Comment:The released value 1 .009 was canceled by YAQUELIN on 10/08/2024 07:09 Bleach CANCELED [facility] Pyridinium Chlorochromate CANCELED [facility] Urine 10/07/2024 10:5 0 PM EDT 10/08/2024 2:07 AM EDT Narrative [facility] - 10/08/2024 7:09 AM EDT See accn [id number] Gerri Peterson MD URINE ORDERABLES Edited Result - Final [facility] [address] * (ABNORMAL) Urine Drug Screen Reflex to Confirmation (10/07/2024 10:50 PM EDT) Only the most recent of2 resultswithin the time period is included. Amphetamine, 500 ng/mL Cutoff Negative Negative 10/08/2024 3:00 AM EDT [facility] Barbiturates UR, 300 ng/mL Cutoff Negative Negative 10/08/2024 3:00 AM EDT [facility] Buprenorphine, 5 ng/mL Cutoff Negative Negative 10/08/2024 3:00 AM EDT [facility] Benzodiazepines UR, 300 ng/mL Cutoff Negative Negative 10/08/2024 3:00 AM EDT [facility] Cocaine UR, 300 ng/mL Cutoff Negative Negative 10/08/2024 3:00 AM EDT [facility] Methadone, UR, 300 ng/mL Cutoff Negative Negative 10/08/2024 3:00 AM EDT [facility] Opiates UR, 300 ng/mL Cutoff Negative Negative 10/08/2024 3:00 AM EDT [facility] Oxycodone, 100 ng/mL Cutoff Presumptive Positive(A) Negative 10/08/2024 3:00 AM EDT [facility] Tricyclic Antidepressants, 300 ng/mL Cutoff Negative Negative 10/08/2024 3:00 AM EDT [facility] Comment:This test has been d eveloped and its performance characteristics determined by [facility] which is certified under [...] Negative Negative 10/08/2024 3:00 AM EDT [facility] Comment:This is a screening method only and may be associated with false positive and/or false negative results. Results are not definitive without additional confirmatory testing by mass spectrometry. Fentanyl, 2 ng/mL Cutoff Negative Negative 10/08/2024 3:00 AM EDT [facility] Comment:This test has been d eveloped and its performance characteristics determined by [facility] which is certified under [...] EDT 10/08/2024 2:08 AM EDT Narrative [facility] - 10/08/2024 3:00 AM EDT CONFIRMATION TO FOLLOW us Gerri Peterson MD URINE ORDERABLES Final Result [facility] [address] [place] [address], [facility] * Ova and Parasite Comprehensive w/ Giardia/Crypto (10/07/2024 10:50 PM EDT) Pathologist [facility] [place] O & P Method: Concentration and Trichrome Stain [facility] Results No Amoeba, Ova, Or Parasites Seen. -- O and P examination of additional specimens is recommended only for symptomatic patients, immunosuppressed patients or those with an appropriate travel history. [facility] Feces FECES / Unknown 10/07/2024 1 0:50 PM EDT 10/08/2024 1:53 AM EDT Comment:F Bisi Hernandez DO MICROBIOLOGY - GENERAL ORDERABLE S Final Result Performing Organization Address [facility] [[email or web address]] Co de Phone Number [facility] [address] [facility] * Hepatitis A IgM (10/07/2024 6:38 PM EDT) Only the most recent of2 resultswithin the time period is included. Pathologist [facility] [place] Hep A IgM Nonreactive Nonreactive 10/07/2024 7:46 PM EDT [facility] Serum 10/07/2024 6:38 PM EDT 10/07/2024 6:52 PM EDT Narrative [facility] - 10/07/2024 7:46 PM EDT IgM anti-HAV not detected. Does not exclude the possibility of exposure to or infection with HAV. Levels of IgM anti-HAV may be below the cut-off in early infection. Gerri Peterson MD LAB BLOOD ORDERABLES Final Resu lt Performing Organization Address City/[facility]/ZIP Co de Phone Number [facility] [address] [facility]. [address] * Syphilis Screening (Trepia) (10/07/2024 6:37 PM EDT) Pathologist [facility] [place] Treponema Pallidum Negative Negative 10/07/2024 8:27 PM EDT [facility] Comment: No serological evidence of infection with Treponema pallidum (incubating or early primary syphilis cannot be excluded). Serum 10/07/2024 6:37 PM EDT 10/07/2024 6:50 PM EDT Gerri Peterson MD LAB BLOOD ORDERABLES Final Resu lt [facility] [address] [place] [address] * (ABNORMAL) CMV IgG Antibody (10/07/2024 6:37 PM EDT) CMV IgG Positive(A ) Negative 10/07/2024 8:26 PM EDT [facility] CMV IGG NUM 8.40(H) 0.00 - 0.59 U/mL 10/07/2024 8:26 PM EDT [facility] Serum 10/07/2024 6:37 PM EDT 10/07/2024 6:50 PM EDT Gerri Peterson MD LAB BLOOD ORDERABLES Final Resu lt Performing Organization Address [facility] [[email or web address]] Co de Phone Number [facility] [address] [place] [address] * (ABNORMAL) Alpha 1 Antitrypsin AAT Quant & Mutation (10/07/2024 6:37 PM EDT) A-1 Antitrypsin 99(L) 101 - 187 mg/dL 10/09/2024 4:28 AM EDT [facility] A-1 Antitrypsin Pheno Comment 10/10/2024 4:05 PM EDT [facility] Comment: A1A Phenotype is consistent with a heterozygous phenotype consisting of one M (normal) allele and one allele that cannot be identified at this time. The unknown allele is not consistent with Z (deficient), S (deficient), or F (deficient). MM Phenotype is considered to be normal , producing normal serum levels of [id number] inhibitor and not associated with clinical disease. [...] EDT 10/10/2024 4:08 PM EDT Narrative [facility] - 10/10/2024 4:08 PM EDT PERFORMED AT: [address] [id number] NUT FORMER: Bassam Khalil, PhD PHONE: [phone] PERFORMED AT: [facility] [id number] NUT FORMER: Mandy Abdul MD PHONE: [phone] Gerri Peterson MD LAB BLOOD ORDERABLES Final Resu lt Performing Organization Address City/State/[facility] [[email or web address]] Co de Phone Number [facility] [address] * Strongyloides Ab (10/07/2024 6:37 PM EDT) Strongyloides Ab Negative Negative 10/11/19 11:51 AM EDT [facility] Serum 10/07/2024 6:37 PM EDT 10/10/2024 12:07 PM EDT Narrative [facility] - 10/10/2024 12:07 PM EDT PERFORMED AT: [address] [id number] NUT FORMER: Mandy Abdul MD PHONE: [phone] Gerri Peterson MD LAB BLOOD ORDERABLES Final Resu lt [facility] [address] [facility] * Ethanol, Serum (10/07/2024 6:37 PM EDT) Only the most recent of2 resultswithin the time period is included. Pathologist [facility] [place] Ethanol <10 0 - 10 mg/dL 10/07/2024 8:36 PM EDT [facility] Serum 10/07/2024 6:37 PM EDT 10/07/2024 6:50 PM EDT Gerri Peterson MD LAB BLOOD ORDERABLES Final Resu lt Performing Organization Address [facility] [[email or web address]] Co de Phone Number [facility] [address] [facility] * Katie-Watkins virus early antigen antibody, IgG (10/07/2024 6:37 PM EDT) [facility] EBV Early Antigen Ab, IgG <9.0 0.0 - 8.9 U/mL 10/09/2024 2:16 PM EDT [facility] Comment: Negative < 9.0 Equivocal 9.0 - 10.9 Positive >10.9 Serum Frozen 10/07/2024 6:37 PM EDT 10/09/2024 3:07 PM EDT Narrative [facility] - 10/09/2024 3:07 PM EDT PERFORMED AT: [facility] [id number] NUT FORMER: Bassam Khalil, PhD PHONE: [phone] us Gerri Peterson MD LAB BLOOD ORDERABLES Final Resu lt Performing Organization Address City/[facility] [[email or web address]] Co de Phone Number [facility] [address] [facility] * (ABNORMAL) Varicella zoster antibody, IgG (10/07/2024 6:37 PM EDT) [facility] Varicella IgG Positive( A) Negative S/CO 10/07/2024 8:34 PM EDT [facility] Comment:Result indicates the presence of [...] 0.99 S/CO 10/07/2024 8:34 PM EDT [facility] Serum 10/07/2024 6:37 PM EDT 10/07/2024 6:50 PM EDT Result [facility] Gerri Peterson MD LAB BLOOD ORDERABLES Final Resu lt Performing Organization Address City/[facility]/ZIP Co de Phone Number [facility] [address] [place] [address]. [address] * TSH (Thyroid Stimulating Hormone) (10/07/2024 6:37 PM EDT) TSH 0.81 0.45 - 4.12 uIU/mL 10/07/2024 8:17 PM EDT [facility] Serum 10/07/2024 6:37 PM EDT 10/07/2024 6:50 PM EDT Result [facility] Gerri Peterson MD LAB BLOOD ORDERABLES Final Resu lt Performing Organization Address City/[facility]/ZIP Co de Phone Number [facility] [address] [place] [address]. [address] * IgA (10/07/2024 6:37 PM EDT) IgA 227.0 70.0 - 400.0 mg/dL 10/08/2024 11:07 AM EDT [facility] Comment:Please interpret the se findings in conjunction with clinical findings, protein electrophoresis, and immunotyping/immunofixation results. Serum 10/07/2024 6:37 PM EDT 10/07/2024 6:50 PM EDT Result [facility] Gerri Peterson MD LAB BLOOD ORDERABLES Final Resu lt [facility] [address] [place] [id number], [facility] * (ABNORMAL) Lipid Profile (10/07/2024 6:37 PM EDT) Non-HDL Cholesterol, Calculated See Note 0 - 129 mg/dL 10/07/2024 7:42 PM EDT [facility] Comment: Desirable: < 130 mg/dL Above Desirable: 130-159 mg/dL Borderline High: 160-189 mg/dL High: 190-219 mg/dL Very High: > 219 mg/dL Unable to calculate result either because contributing result(s) are outside of reportable range or are not available. Cholesterol, Total <25 0 - 200 mg/dL 10/07/2024 7:42 PM EDT [facility] Triglycerides 30 10 - 149 mg/dL 10/07/2024 7:42 PM EDT [facility] HDL 4(L) 60 - 92 mg/dL 10/07/2024 7:42 PM EDT [facility] Comment: LIPID PROFILE INTERPRETATION CHOLESTEROL,TOTAL(mg/dL) [...] See Note mg/dL 7:42 PM EDT [facility] Comment:Unable to calculate result either because contributing result(s) are outside of reportable range or are not available. Plasma 10/07/2024 6:37 PM EDT 10/07/2024 7:06 PM EDT Narrative [facility] - 10/07/2024 7:42 PM EDT LDL cholesterol calculated using the Friedewald equation. Gerri Peterson MD LAB BLOOD ORDERABLES Final Resu lt [facility] [id number] [place] [address], [facility] * X-ray Mandible minimum 4-views (10/07/2024 [...] EXAM: US ABDOMEN COMPLETE EXAM: US DUPLEX [id number] COMPLETE INDICATION: elevated bilirubin COMPARISON: Ultrasound and [...] EXAM: US ABDOMEN COMPLETE EXAM: US DUPLEX [id number] COMPLETE INDICATION: elevated bilirubin COMPARISON: Ultrasound and [...] 4:26 PM EDT us Bisi Hernandez DO [facility] [place] US ORDERABLES Final Result * AFP Tumor Marker (10/07/2024 6:00 AM EDT) Only the most recent of2 resultswithin the time period is included. AFP-Tumor Marker 2.0 0.0 - 9.0 ng/mL 10/07/2024 7:11 AM EDT [facility] Serum 10/07/2024 6:00 AM EDT 10/07/2024 6:39 AM EDT Narrative [facility] - 10/07/2024 7:11 AM EDT The testing method for AFP is a chemiluminescent immunoassay manufactured by [employer] Concentrations of AFP obtained by different assay methods or kits may vary and cannot be used interchangeably. AFP results cannot be interpreted as absolute evidence of the presence or absence of malignant disease. Ni Rivera MD LAB BLOOD ORDERABLES Final Resul t Performing Organization Address [facility] [[email or web address]] Co de Phone Number [facility] [address] * Osmolality (10/06/2024 2:50 PM EDT) [facility] Osmolality, Measured 304 278 - 305 mOsm/kg 10/06/2024 3:49 PM EDT [facility] Serum 10/06/2024 2:50 PM EDT 10/06/2024 2:56 PM EDT Jani Vanegas MD LAB BLOOD ORDERABLES Final Resul t Performing Organization Address [facility] de Phone Number [facility] [address] [facility] * CT Head WO contrast (10/06/2024 [...] Vanegas MD URINE ORDERABLES Final Result [facility] [address] [place] [address], [facility] * Potassium, urine, random (10/06/2024 1:25 PM EDT) Only the most recent of2 resultswithin the time period is included. Potassium Urine Random 50.0 mmol/L 10/06/2024 1:56 PM EDT [facility] Comment:Reference range not established for this test. Urine 10/06/2024 1:25 PM EDT 10/06/2024 1:32 PM EDT us Jani Vanegas MD URINE ORDERABLES Final Result Performing Organization Address [facility] [[email or web address]] Co de Phone Number [facility] [address] * Osmolality, Urine (10/06/2024 1:25 PM EDT) Osmolality, Ur 386 50 - 1,200 mOsm/kg 10/06/2024 1:55 PM EDT [facility] Urine 10/06/2024 1:25 PM EDT 10/06/2024 1:32 PM EDT us Jani Vanegas MD URINE ORDERABLES Final Result Performing Organization Address [facility] de Phone Number [facility] [address] * Chloride, urine, random (10/06/2024 1:25 PM EDT) Only the most recent of2 resultswithin the time period is included. Chloride, Ur <15 mmol/L 10/06/2024 1:56 PM EDT [facility] Comment:Reference range not established for this test. Urine 10/06/2024 1:25 PM EDT 10/06/2024 1:32 PM EDT us Jani Vanegas MD URINE ORDERABLES Final Result Performing Organization Address [facility] [[email or web address]] Co de Phone Number [facility] [address] * (ABNORMAL) Salicylate Level (10/06/2024 4:01 AM EDT) Pathologist [facility] Salicylate Lvl <3(L) 10 - 30 mg/dL 10/06/2024 4:58 AM EDT [facility] Serum 10/06/2024 4:01 AM EDT 10/06/2024 4:22 AM EDT Bisi Hernandez DO LAB BLOOD ORDERABLES Final Resul t [facility] [address] [place] [address], [facility] * Upper Respiratory Viral/Bacterial Panel-BRIM FLEXER Only (10/06/2024 3:12 AM EDT) [facility] Adenovirus Not Detected Not Detected 10/06/2024 11:38 PM EDT [facility] Coronavirus (229E,HKU1,NL63,OC 43) Not Detected Not Detected 10/06/2024 11:38 PM EDT [facility] SARS-CoV-2 Not Detected Not Detected 10/06/2024 11:38 PM EDT [facility] Human Metapneumovirus Not Detected Not Detected 10/06/2024 11:38 PM EDT [facility] Human Rhinovirus/Enterov irus Not Detected Not Detected 10/06/2024 11:38 PM EDT [facility] Influenza A Not Detected Not Detected 10/06/2024 11:38 PM EDT [facility] Influenza A H1 Not Detected Not Detected 10/06/2024 11:38 PM EDT [facility] Influenza A/H1-2009 Not Detected Not Detected 10/06/2024 11:38 PM EDT [facility] Influenza A H3 Not Detected Not Detected 10/06/2024 11:38 PM EDT [facility] Influenza B Not Detected Not Detected 10/06/2024 11:38 PM EDT [facility] Parainfluenza 1 Not Detected Not Detected 10/06/2024 11:38 PM EDT [facility] Parainfluenza 2 Not Detected Not Detected 10/06/2024 11:38 PM EDT [facility] Parainfluenza 3 Not Detected Not Detected 10/06/2024 11:38 PM EDT [facility] Parainfluenza 4 Not Detected Not Detected 10/06/2024 11:38 PM EDT [facility] Resp. Syncycial Virus A Not Detected Not Detected 10/06/2024 11:38 PM EDT [facility] Resp. Syncycial Virus B Not Detected Not Detected 10/06/2024 11:38 PM EDT [facility] Chlamydia pneumoniae Not Detected Not Detected 10/06/2024 11:38 PM EDT [facility] Mycoplasma pneumoniae Not Detected Not Detected 10/06/2024 11:38 PM EDT [facility] Comment: The Respiratory Viral-Bacterial Panel [...] Test results have been sent to the [facility] in accordance with state requirements. For a fact sheet for healthcare providers, see https://www.fda.gov/media/885837/download. For a fact sheet for patients, see https://www.fda.gov/media/660065/download. Nasopharyngeal Swab NASOPHARYNGEAL SWAB / Unknown 10/06/2024 3:12 AM EDT 10/06/2024 5:41 PM EDT Comment:BRIM FLEXER Bisi Hernandez DO BODY FLUIDS AND STOOLS ORDERABLE S Final Result [facility] [address] * Thyroid Function Meeker (10/06/2024 1:04 AM EDT) TSH 0.84 0.45 - 4.12 uIU/mL 10/06/2024 2:20 AM EDT [facility] Serum 10/06/2024 1:04 AM EDT 10/06/2024 1:39 AM EDT [facility] LAB BLOOD ORDERABLES Final Resul t [facility] [address] * #2 Blood culture-Peripheral site 2 (10/06/2024 1:04 AM EDT) Only the most recent of2 resultswithin the time period is included. Culture Result No Growth After 5 Days [facility] Blood BLOOD SPECIMEN / Unknown 10/06/2024 1:04 AM EDT 10/06/2024 4:57 AM EDT Narrative [facility] - 10/11/2024 5:05 AM EDT Suboptimal volume of blood received. Interpret results with caution. Symwave DO MICROBIOLOGY - GENERAL ORDERABLE S Final Result [facility] [address] * (ABNORMAL) Acetaminophen Level (10/06/2024 1:04 AM EDT) Acetaminophen Level <10(L) 10 - 30 ug/mL 10/06/2024 2:08 AM EDT [facility] Serum 10/06/2024 1:04 AM EDT 10/06/2024 1:30 AM EDT [facility] LAB BLOOD ORDERABLES Final Resul t [facility] [address] [place] [address], [facility] * Renal Function Panel, Fasting (09/16/2024 [...] 3.4(A) 3.5 - 5.0 g/dL Blood Result [facility] Gerri Peterson MD LAB BLOOD [...] marked LLQ . Under sterileconditions, 5 Fr/7cm Voxieeh catheter was inserted in a LLQ site [...] Positive( A) Negative 09/09/2024 1:20 PM EDT [facility] Comment:Positive indicates t oxigenic C. difficile was detected in the sample. Negative indicates that toxigenic C. difficile was not detected above the limit of the detection of the assay. The test methodology is a FDA approved DNA amplification assay. Stool, Liquid FECES / Unknown 09/09/2024 4:58 AM EDT 09/09/2024 6:44 AM EDT Comment:F Result [facility] Kathie Bauer MD BODY FLUIDS AND STOOLS ORDERA BLES Final Result [facility] [address] [place] [address], [facility] * Clostridium Difficile Toxin A/B Antigen [...] Kathie Bauer MD BODY FLUIDS AND STOOLS JERRICAA GRACY Final Result [facility] [address] 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, VRE- urine 10/31/2024 06/08/2024 Insurance [employer] Member Subscriber Plan / Payer (Ef fective 2015-Present) Name:Blair Anderson Relation to Subscriber:Self Name:Blair Anderson Payer ID:[id number] (NAIC) Type:Not on file Address: [address] [facility] [employer] Member Subscriber Plan / Payer (Ef fective 2015-Present) Name:Blair Anderson Relation to Subscriber:Self Name:Blair Anderson Payer ID:[id number] (NAIC) Type:Not on file Address: [address] [employer] Member Subscriber Plan / Payer (Ef fective 2024-Present) Name:Blair Anderson Relation to Subscriber:Self Name:Blair Anderson Payer ID:[id number] Group ID:Not on file Type:Transplant Address: [address] [place] [address] Advance Directives For more information, please contact: [phone] * Full Code (Latest Code Status on [...] 9:55 PM 08/19/2024 4:56 PM Care Teams Quarry Worker Relationship Specialty Start Date End Date Enedina Mcguire NP [address] [place] [address] PCP - General Internal Medicine 10/05/24 Maureen Pantoja, RN Txp Post Coordinator Transplant Hepatology 10/28/24
--- OUTSIDE RECORDS SUMMARY | 2024-12-08 11:06 | XMS_ITS | Encounter Summary ---
Author Organization [facility] Address [address] [place] [address] Care Team Providers Care Slope Runner Name Role Phone Enedina Mcguire NP Primary Care Provider [phone] Source Comments This information has been disclosed [...] release of HIV test results or diagnoses. [id number] Health Encounter Details Date Type Department Care Team (Late st Contact Info) Description 10/14/[address] [facility] Kidney Transplant at [address] [place] [phone] Dean Robles [facility] [address] Social History Tobacco Use Types Packs/Day Years Used Date Smoking Tobacco: Former Cigarettes Smokeless Tobacco: Current Alcohol Use Standard Drinks/Week Comments Yes 0 (1 standard drink = 0.6 oz pure alcohol) History of alcohol abuse, reports no use in 3 week- typically endorses use as 4 glasses of wine a days Utilities Answer Date Recorded In the past 12 months has [employer], [employer], oil, or water [employer] threatened to shut off services in your [...] 9:49 AM EDT Dean berman [facility] [address] Case opened CM Elle ph [phone] Fx [phone] Liver requested urgent review for slk Approved by [employer] letter to files documented in this encounter Plan of Treatment Not on file documented as of this encounter Visit Diagnoses Not on filedocumented in this encounter Additional Health Concerns Infection Onset Date Last Indicated Resolved Time C. difficile 09/09/2024 09/09/2024 10/27/2024 8:30 AM EDT Assessment Noted Time PHQ-9 Depression Total Score: 17 025 11:00 AM EDT documented as of this encounter Care Teams Slope Runner Relationship Specialty Start Date End Date Enedina Mcguire NP [address] [place] [address] PCP - General Internal Medicine 10/05/24 documented as of this encounter
--- OUTSIDE RECORDS SUMMARY | 2024-12-08 11:08 | XMS_ITS | Encounter Summary ---
Author Organization [facility] Address [address] [place] [address] Care Team Providers Care Certified Substance Abuse Counselor Name Role Phone Enedina Mcguire NP Primary Care Provider [phone] Source Comments This information has been disclosed [...] release of HIV test results or diagnoses. [id number] Health Encounter Details Date Type Department Care Team (Late st Contact Info) Description 10/09/[address] [facility] Kidney Transplant at [address] [place] [phone] Dean Robles [facility] [address] call from Elle [facility] fx [phone] Social History Tobacco Use Types Packs/Day Years Used Date Smoking Tobacco: Former Cigarettes Smokeless Tobacco: Current Alcohol Use Standard Drinks/Week Comments Yes 0 (1 standard drink = 0.6 oz pure alcohol) History of alcohol abuse, reports no use in 3 week- typically endorses use as 4 glasses of wine a days Utilities Answer Date Recorded In the past 12 months has e [employer], gas, oil, or water company threatened to [...] - 10/09/2024 11:57 AM EDT Dean berman [facility] [phone] call from Elle [facility] fx [phone] Set her all clinical Rquesting a urgent [...] as of this encounter Care Teams Certified Substance Abuse Counselor Relationship Specialty Start Date End Date Enedina Mcguire NP [address] [place] [address] PCP - General Internal Medicine 10/05/24 documented as of this encounter
--- OUTSIDE RECORDS SUMMARY | 2024-12-08 11:08 | XMS_ITS | Encounter Summary ---
Author Organization [facility] Address [address] [place] [address] Care Team Providers Care Catalyst Concentration Operator Name Role Phone Enedina Mcguire NP Primary Care Provider [phone] Source Comments This information has been disclosed [...] release of HIV test results or diagnoses. [id number] Health Encounter Details Date Type Department Care Team (Late st Contact Info) Description 10/09/2024 Chart Note [facility] Kidney Transplant at [address] [place] [phone] Dean Robles [facility] [address] Social History Tobacco Use Types Packs/Day Years Used Date Smoking Tobacco: Former Cigarettes Smokeless Tobacco: Current Alcohol Use Standard Drinks/Week Comments Yes 0 (1 standard drink = 0.6 oz pure alcohol) History of alcohol abuse, reports no use in 3 week- typically endorses use as 4 glasses of wine a days Utilities Answer Date Recorded In the past 12 months has [employer], [employer], oil, or water [employer] threatened to shut off services in [...] Guillen 10/09/2024 10:37 AM EDT Dean berman [facility] [address] Called Cammie Wing [phone] Advised of brandon martínez she was aware [...] documented as of this encounter Care Teams Catalyst Concentration Operator Relationship Specialty Start Date End Date Enedina Mcguire NP [address] [place] [address] PCP - General Internal Medicine 10/05/24 documented as of this encounter
--- OUTSIDE RECORDS SUMMARY | 2024-12-08 11:08 | XMS_ITS | Encounter Summary ---
Author Organization [facility] Address [address] [place] [address] Care Team Providers Care Ditching Machine Engineer Name Role Phone Enedina Mcguire NP Primary Care Provider [phone] Source Comments This information has been disclosed [...] release of HIV test results or diagnoses. [id number] Health Encounter Details Date Type Department Care Team (Late st Contact Info) Description 10/09/2024 Social Work [facility] Liver Transplant at [address] [phone] Kaylin Willard MSW Social History Tobacco Use [...] Recorded In the past 12 months has [employer], gas, oil, or water [employer] threatened to shut off services in your [...] Liver Transplant Patient has been referred to [facility] for liver transplant evaluation. 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 Patient is engaged in CD treatment with: [facility] [phone] SW met with patient and spouse at [...] during hospitalization pending mental status. NUBIA Barros, MACHINE GUIDE BASE WINDER documented in this encounter Plan of Treatment Not on file documented as of this encounter Visit Diagnoses Not on filedocumented in this encounter Additional Health Concerns Infection Onset Date Last Indicated Resolved Time C. difficile 09/09/2024 09/09/2024 10/27/2024 8:30 AM EDT Assessment Noted Time PHQ-9 Depression Total Score: 17 09/29/2 025 11:00 AM EDT documented as of this encounter Care Teams Ditching Machine Engineer Relationship Specialty Start Date End Date Enedina Mcguire NP [address] [place] [address] PCP - General Internal Medicine 10/05/24 documented as of this encounter
--- OUTSIDE RECORDS SUMMARY | 2024-12-08 11:09 | XMS_ITS | Encounter Summary ---
Author Organization [email or web address] ([place], [place], [place], [place]) Address [address] [place] [address] Care Team Providers Care Electrician Deck Name Role Phone Unavailable Primary Care Provider Carmen e Encounter Details Date Type Department Care Team (Late st Contact Info) Description 06/03/2018 Transcribed Document [facility] [address] [place] [address] ProviderEbenezer MD [address] [place] [address] Social History Tobacco Use Types [...] - Historical ProviderMD - 06/03/2018 3:04 PM PRIVATE CHEF [address] [place] [address] Patient Information Name: JULIEN ZELAYA [...] [address] [place] [address] [employer] (1) Within 2 to 3 days Patient [...] off of the skin. General Instructions??? Take ktaz-tso-lbwqbhb and prescription medicines only as told by [...] 04/30/2006 Document Revised: 09/29/2016 Document Reviewed: 04/26/2015 [employer] Patient Education ? 2017 [employer] Allergies: No Known Medication Allergies Medication [...] verify that JULIEN ZELAYA was seen at [facility] Emergency Department on ,06/03/2018 15:04:17. This [...] Assistance with quitting is available by contacting 7-267-XYMG-NOW. This is a free resource providing counseling, [...] Electronic Communications Privacy Act 18 U.S.C. ???Sections 3780-8958,?? and contain information intended for the specified [...] sure to sign up for the My [facility] patient portal, which gives you 04/12 access to your medical information ??? including these discharge instructions ??? using your computer, smartphone, or tablet. Just go to [employer] to get started. Questions? Call . Acknowledgment [...] Electronically signed by Luis Eduardo [facility] Education Coordinator Celia at 08/29/2022 6:45 PM CDT documented in this encounter Plan of Treatment Not on file documented as of this encounter Visit Diagnoses Not on filedocumented in this encounter
--- OUTSIDE RECORDS SUMMARY | 2024-12-08 11:09 | XMS_ITS | Encounter Summary ---
Author Organization [employer] ([place], [place], [place], [place]) Address [address] [place] [address] Care Team Providers Care Is Technician Name Role Phone Unavailable Primary Care Provider Unavailabl e Encounter Details Date Type Department Care Team (Late st Contact Info) Description 06/03/2018 Transcribed Document [facility] Family Medicine [address] [place] [address] ProviderEbenezer MD [address] [place], [place] [id number] Social History Tobacco Use Types Packs/Day Years [...] - Historical ProviderMD - 06/03/2018 12:08 PM MAJOR ACCOUNT REPRESENTATIVE ED Assessment Entered On: 06/03/2018 14:51 EST Performed On: 06/03/2018 13:50 EST by Lizeth Almeida, SENIOR IT SPECIALIST Quick Look Assessment Level of Consciousness : Alert Affect/Behavior : Calm, Cooperative Orientation : Oriented x 4 Skin Color : Other: [place] Skin Temperature : Warm Skin Description : Dry Lizeth Almeida, RN - 06/03/2018 14:50 EST ED General-Functional Assess Communication Barrier : None Primary Language : Italian Any Spiritual/Cultural Needs or Requests : No [...]
--- OUTSIDE RECORDS SUMMARY | 2024-12-08 11:09 | XMS_ITS | Encounter Summary ---
Author Organization [facility] Address [address] [place] [address] Care Team Providers Care Tour Leader Name Role Phone Enedina Mcguire NP Primary Care Provider [phone] Maureen Pantoja RN Unavailable Unavail able Source [...] release of HIV test results or diagnoses. [id number] Health Encounter Details Date Type Department Care Team (Late st Contact Info) Description 11/18/2024 Chart Note [facility] Liver Transplant at [address] [place] [phone] Marlene Ro MA Social History Tobacco Use [...] Recorded In the past 12 months has [employer], gas, oil, or water [employer] threatened to shut off services in your [...] w/o EGFR (11/13/2024 8:44 AM EDT) Pathologist [facility] Glucose 108 mg/dL BUN 25(A) 4 - [...] 5.0 g/dL Blood Narrative Resulting Agency Comment [facility] us Historical Provider LAB BLOOD ORDERABLES Denisse l Result * Tacrolimus level (11/13/2024 8:44 AM EDT) Pathologist [facility] Tacrolimus Lvl 10.9 6 - 15 ng/mL Whole Blood Narrative Resulting Agency Comment [facility] Historical Provider LAB BLOOD ORDERABLES Denisse l Result * (ABNORMAL) CBC and differential (11/13/2024 8:44 AM EDT) Pathologist [facility] Hemoglobin 9.8(A) 13.5 - 17.5 g/dL Hematocrit [...] 5.7 10^3/mL Blood Narrative Resulting Agency Comment [facility] Historical Provider LAB BLOOD ORDERABLES Denisse l Result * (ABNORMAL) Hepatic Function Panel (11/13/2024 8:44 AM EDT) Bilirubin, Direct 0.6 Bilirubin, Indirect 0.2 Alkaline Phosphatase 137 U/L ALT 29 U/L AST 20 U/L Total Bilirubin 0.8 0.1 - 1.4 mg/dL Total Protein 5.8(A) 6.4 - 8.2 g/dL Plasma Narrative Resulting Agency Comment [facility] Historical Provider LAB BLOOD ORDERABLES Denisse l Result documented in this encounter Visit Diagnoses Not on filedocumented in this encounter Additional Health Concerns Infection Onset Date Last Indicated Resolved Time 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
--- OUTSIDE RECORDS SUMMARY | 2024-12-08 11:09 | XMS_ITS | Encounter Summary ---
Author Organization [employer] ([place], [place], [place], [place]) Address [address] [place] [address] Care Team Providers Care Market Research Interviewer Name Role Phone Unavailable Primary Care Provider Unavailabl e Encounter Details Date Type Department Care Team (Late st Contact Info) Description 06/03/2018 Transcribed Document [facility] [place] [address] [place] [address] ProviderEbenezer MD [address] [place] [address] Social History Tobacco Use Types [...] - Historical ProviderMD - 06/03/2018 3:04 PM ROCK SINGER [place] [address] [place] [address] PERSON INFORMATION Name JULIEN ZELAYA Age 33 Years 1985 Sex Male Language Trinidadian PCP SALLY EVERETT (REF) T Marital Status Single Med Service Emergency Medicine Acct# Arrival 06/03/2018 12:08:00 Visit Reason Finger laceration; CUT FINGERS Acuity 3 - Urgent LOS 000 02:56 Depart Date: 06/03/18 03:04 PM Address: [address] [facility] [phone] Comment: PROVIDER INFORMATION Provider Role Assigned Unassigned Lizeth Almeida, ENVIRONMENTAL RESEARCH SCIENTIST Nurse 06/03/2018 12:39:09 DOMINIQUE BREWER PA-C ED [...] PURI [address] [place], [place] [id number] [employer] (1Cat [employer] Within 2 to 3 days Comment: documented in this encounter Plan of Treatment Not on file documented as of this encounter Visit Diagnoses Not on filedocumented in this encounter
--- OUTSIDE RECORDS SUMMARY | 2024-12-08 11:09 | XMS_ITS | Clinical Summary ---
Author Organization [employer] ([place], [place], [place], [place]) Address [address] [place] [address] Care Team Providers Care Orchardist Name Role Phone Unavailable Primary Care Provider [...]
--- OUTSIDE RECORDS SUMMARY | 2024-12-08 11:09 | XMS_ITS | Encounter Summary ---
Author Organization [facility] Address [address] [place] [address] Care Team Providers Care Human Resources Training Manager Name Role Phone Enedina Mcguire NP Primary Care Provider + [phone] Maureen Pantoja RN Unavailable Unavail able Source [...] release of HIV test results or diagnoses. [id number] Reason for Visit * Reason Comments Results Encounter Details Date Type Department Care Team (Riky st Contact Info) Description 11/18/2024 Telephone [facility] Liver Transplant at [address] [address] Maureen Pantoja, RN Results Social [...] In the past 12 months has [employer], gas, oil, or water [employer] threatened to [...] of this encounter Care Teams Human Resources Training Manager Relationship Specialty Start Date End Date Enedina Mcguire NP [address] [place] [address] PCP - General Internal Medicine 10/05/24 Maureen Pantoja, RN Txp Post Coordinator Transplant Hepatology 10/28/24 documented as of this encounter
--- OUTSIDE RECORDS SUMMARY | 2024-12-08 11:09 | XMS_ITS | Encounter Summary ---
Author Organization [employer] ([place], [place], [place], [place]) Address [address] [place] [address] Care Team Providers Care Translator Deaf Name Role Phone Unavailable Primary Care Provider Unavaillia e Encounter Details Date Type Department Care Team (Late st Contact Info) Description 06/03/2018 Transcribed Document [facility] Family Medicine [address] [place] [address] ProviderEbenezer MD [address], [place] [id number] Social History Tobacco Use Types Packs/Day Years [...] - Historical ProviderMD - 06/03/2018 1:05 PM STERILIZATION TECH Patient: JULIEN ZELAYA Age: 33 years Sex: [...] 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 lacerations noted with bleeding controlled . [...] EST Height Source Stated Height Entry Format [place] Height/Length, HUNGARIAN (ft) 6 ft Height/Length HUNGARIAN 4 Inch CLINICALHEIGHT 193.04 cm [place] Body Weight 85.74 kg Weight Source, ED Standing scale Weight Entry Format [place] Weight Arabic lb 265 lb CLINICALWEIGHT 120.45 kg Body [...] 14:22 EST, Discharge to: Home. Prescriptions: Prescription Auto Body Technician Pharmacy: Keflex 500 mg oral capsule (Prescribe): [...]
--- OUTSIDE RECORDS SUMMARY | 2024-12-08 11:09 | XMS_ITS | Referral Summary ---
Author Organization [employer] ([place], [place], [place], [place]) Address [address] [place] [address] Care Team Providers Care First Aid Nurse Name Role Phone Unavailable Primary Care [...]
--- OUTSIDE RECORDS SUMMARY | 2024-12-08 11:09 | XMS_ITS | Encounter Summary ---
Author Organization [employer] ([place], [place], [place], [place]) Address [address] [place] [address] Care Team Providers Care Tapper Balance Wheel Screw Hole Name Role Phone Unavailable Primary Care Provider Unavailabl e Encounter Details Date Type Department Care Team (Late st Contact Info) Description 06/03/2018 Transcribed Document [facility] [place] [address] [place] [address] ProviderEbenezer MD [address] [place], [place] [id number] Social History Tobacco Use Types Packs/Day Years [...] - Historical ProviderMD - 06/03/2018 2:24 PM COAL BRIQUETTE MACHINE OPERATOR Electronically signed by Gabriela [facility] Conversion Climatology Teacher Cerner at 08/29/2022 6:41 PM CDT documented in this encounter Plan of Treatment Not on file documented as of this encounter Visit Diagnoses Not on filedocumented in this encounter
--- OUTSIDE RECORDS SUMMARY | 2024-12-08 11:09 | XMS_ITS | Encounter Summary ---
Author Organization [employer] ([place], [place], [place], [place]) Address [address] [place] [address] Care Team Providers Care Imaging Clerk Name Role Phone Unavailable Primary Care Provider Unavailabl e Encounter Details Date Type Department Care Team (Late st Contact Info) Description 06/03/2018 Transcribed Document [facility] [place] [address] [place] [address] ProviderEbenezer MD [address] [place], [place] [id number] Social History Tobacco Use Types Packs/Day Years [...] - Historical ProviderMD - 06/03/2018 3:03 PM REAMING MACHINE OPERATOR FOR PLASTIC ED Discharge Entered On: 06/03/2018 15:03 EST Performed On: 06/03/2018 15:03 EST by Lizeth Almeida, negative turner apprentice Process Patient Disposition : Discharge Personal Belongings [...] 06/03/2018 15:03 EST Electronically signed by Gabriela [facility] Conversion Human Resource Adviser Celia at 08/29/2022 6:35 PM CDT documented in this encounter Plan of Treatment Not on file documented as of this encounter Visit Diagnoses Not on filedocumented in this encounter
--- OUTSIDE RECORDS SUMMARY | 2024-12-08 11:09 | XMS_ITS | Encounter Summary ---
Author Organization [employer] ([place], [place], [place], [place]) Address [address] [place] [address] Care Team Providers Care Primary School Teacher Librarian Name Role Phone Unavailable Primary Care Provider Unavailabl e Encounter Details Date Type Department Care Team (Late st Contact Info) Description 06/03/2018 Transcribed Document [facility] Family Medicine [address] [place] [address] ProviderEbenezer MD [address] [place] [address] Social History Tobacco Use Types [...] - Historical ProviderMD - 06/03/2018 12:08 PM OUTSIDE INDUSTRIAL SALES REPRESENTATIVE ED Triage Entered On: 06/03/2018 12:17 EST Performed On: 06/03/2018 12:12 EST by KANU VELEZ RN ED Triage Across the Room Triage Date/Time : 06/03/2018 12:12 EST Chief Complaint : lacerations to rt index and left middle finger s/p picking up a 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 lacerations noted with bleeding controlled KANU VELEZ RN - 06/03/2018 12:12 EST DCP GENERIC CODE Tracking Acuity : 3 - Urgent Tracking Group : [facility] [place] KANU VELEZ RN - 06/03/2018 [...] 12:17:41 EST) Problems(Active) HTN (hypertension) (SNOMED CT :7888784629 ) Name of Problem: HTN (hypertension) ; Recorder: KANU VELEZ RN; Confirmation: Confirmed ; Classification: Medical ; Code: [id number] ; Contributor System: [facility] ; Last Updated: 06/03/2018 12:14 EST ; Life Cycle Date: 06/03/2018 ; Life Cycle Status: Active ; Vocabulary: SNOMED CT Diagnoses(Active) Finger laceration Date: 06/03/2018 ; Diagnosis Type: Reason For Visit ; Confirmation: Complaint of ; Clinical Dx: Finger laceration ; Classification: Medical ; Clinical Service: Emergency medicine ; Code: PNED ; Probability: 0 ; Diagnosis Code: [id number] ED Height and Weight Height Source : Stated Height Entry Format : [place] Height, Feet : 6 ft(Converted to: 183 cm, 72 Inch) Height, Inches : 4 Inch(Converted to: 0 ft 4 Inch, 10.16 cm) Clinical Height : 193.04 cm Weight Source, ED : Standing scale Weight Entry Format : [place] Weight, Pounds : 265 lb Clinical Dosing Weight : 120.45 kg Body Surface Area (BSA) : 2.5 m2 Body Mass Index : 32.3 kg/m2 (HI) [place] Body Weight (IBW) : 85.74 kg KANU [...]
--- OUTSIDE RECORDS SUMMARY | 2024-12-08 11:09 | XMS_ITS ---
Author Organization [facility] Address [address] [place] [address] Care Team Providers Care Plant Tour Guide Name Role Phone Enedina Mcguire NP Primary Care Provider [phone] Maureen Pantoja RN Unavailable Unavail able Transplant Episode Kidney Recipient [facility] ([place], [place]) [facility] Organ Received: Left Kidney Transplanted on 10/27/2024 Marked as Active Follow-up on 10/27/2024 Kidney CoordinatorJosr Weber RN Phone: N/A Fax: N/A Email: N/A [place] Organ Diagnosis Organ Primary Contributory Kidney Hepatorenal [...] N/A N/A Flaquito Mayen MD Txp Surgeon [phone] N/A Bruno Gonzalez MD Txp Blender [phone] N/A Yovanny Curran MD Referring Physician [phone] N/A Events Post-Transplant Pre-Transplant Admitted: 10/25/2024 Referred: 10/07/2024 Transplanted: 10/27/2024 Evaluation began: Discharged: 11/02/2024 Committee: 10/20/2024 Center waitlisted: 5
--- OUTSIDE RECORDS SUMMARY | 2024-12-08 11:09 | XMS_ITS ---
Author Organization [facility] Address [address] [place] [address] Care Team Providers Care Orthodontist Small Business Owner Name Role Phone Enedina Mcguire NP Primary Care Provider + [phone] Maureen Pantoja RN Unavailable Unavail able Transplant Episode Liver Recipient [facility] ([place], [place]) - [facility] Organ Received: Liver Transplanted on 10/26/2024 Marked as Active Follow-up on 10/26/2024 Liver CoordinatorMaureen Pantoja RN Phone: N/A Fax: N/A Email: N/A [place] Organ Diagnosis Organ Primary [...] N/A N/A Chris Orosco MD Referring Physician [phone] N/A Maureen Leeanna Pantoja, RN Txp Post Coordinator N/A N/A N/A NUBIA Barros Txp Gravity Prospecting Operator N/A N/A N/A Harvey Domínguez III, MD Txp Surgeon [phone] N/A Mary Butler RN Txp Pre Coordinator N/A N/A N/A Events Post-Transplant Pre-Transplant Admitted: 10/25/2024 Referred: 08/13/2024 Transplanted: 10/26/2024 Evaluation began: Discharged: 11/02/2024 Committee: 10/14/2024 Center waitlisted: Pending Checklist Tasks (Due on or before 01/08/2025) Name Due Date Attached Appoint ment Social Work Consult 01/05/2025 Appointments (11/08/2024 - 01/08/2025) When With Visit Type Description 11/11/2024 Txp Kady De La Rosa Established Patient Encounter for therapeutic drug monitoring (Primary Dx); Abdominal pain, unspecified abdominal location 11/11/2024 Txp Lorrie Mascorro Established Patient Kid haylee replaced by transplant (Primary Dx); Hypervolemia associated with renal insufficiency 11/25/2024 Txp Lalit Oscar Established Patient E ncounter for therapeutic drug monitoring (Primary Dx); S/P liver transplant ([facility]); Hypomagnesemia; Kidney transplant recipient; Hypertension, unspecified type; Gastroesophageal reflux disease, unspecified whether esophagitis present; Abdominal pain, unspecified abdominal location 11/25/2024 Txp Lorrie Mascorro Established Patient NADIYA (acute kidney injury) ([facility]) (Primary Dx); Kidney replaced by transplant; Metabolic acidosis; Hypervolemia associated with renal insufficiency
[2024-12-08 11:18] LABS: Hematocrit 31.2 % (42.0-52.0); Hemoglobin 10.3 g/dL (14.1-18.0); Immature Granulocytes % 0.6 %; Mean Corpuscular HGB Conc 33.0 g/dL (31.8-35.4); Mean Corpuscular Hemoglobin 31.0 pg (27.0-31.2); Mean Corpuscular Volume 94.0 fl (80-94); Nucleated Red Blood Cells % 0 %; Platelet Count 147 K/mm3 (142-424); Red Blood Count 3.32 M/mm3 (4.60-6.20); Red Cell Distribution Width-SD 58.3 fL; White Blood Count 5.1 K/mm3 (4.8-10.8)
[2024-12-08 11:33] LABS: INR 0.99 (0.9-1.1); Prothrombin Time 11.0 seconds (10.1-12.5)
[2024-12-08 11:39] LABS: Bilirubin,Urine Negative (Negative); Color,Urine YELLOW (Yellow); Glucose,Urine (UA) Negative (Negative); Ketones,Urine Negative (Negative); Leukocyte Esterase,Urine Negative (Negative); PH,Urine 6.0 (5.0-8.5); Protein,Urine Negative (Negative); Specific Gravity, Urine 1.010 (1.005-1.030); Urobilinogen,Urine 0.2 EU/dl (0.2)
[2024-12-08 11:43] LABS: Alanine Aminotransferase 14 U/L (12-78); Albumin Level 3.9 g/dl (3.5-5.0); Alkaline Phosphatase 80 U/L (38-126); Anion Gap 10.9 mEq/L (5-15); Aspartate Amino Transferase 16 U/L (17-59); Bilirubin,Direct 0.1 mg/dl (0.0-0.4); Bilirubin,Indirect 0.2 mg/dL (0.0-0.9); Bilirubin,Total 0.3 mg/dl (0.2-1.3); Bilirubin,Unconjugated 0.2 mg/dL (0.0-1.1); Blood Urea Nitrogen 21 mg/dl (9-20); Calcium 9.4 mg/dl (8.4-10.2); Carbon Dioxide 28 mmol/L (22.0-30.0); Chloride 105 mmol/L (98-107); Creatinine,Serum 0.90 mg/dl (0.66-1.25); Estimated Glomerular Filt Rate 93 ml/min (>60); GFR (African American) 113 ML/MIN (>60); Glucose 83 mg/dl (74-100); Magnesium 1.3 mg/dl (1.6-2.3); Phosphorous 4.0 mg/dl (2.5-4.5); Potassium 3.9 mmoL/L (3.5-5.1); Sodium 140 mmol/L (136-145); Total Protein,Serum 5.6 g/dl (6.3-8.2)
[2024-12-08 11:54] LABS: Bacteria,Urine Trace /lpf; Squamous Epithelial Cell,Urine Occasional #/hpf (0-5)
[2024-12-10 19:22] LABS: Tacrolimus (FK506), Blood 8.4 ng/mL (5.0-20.0)
== END 2024-12-08 23:59 | disposition home or self-care (01) ==
LOC: LAB 10:37
PROVIDERS: PCP Nurse Practitioner Family; Visit Provider Student in an Organized Health Care Education/Training Program
DX: Z48.23 Encounter for aftercare following liver transplant (principal); Z94.4 Liver transplant status; Z79.60 Long term (current) use of unspecified immunomodulators and immunosuppressants
CPT/HCPCS: 36415; 80069; 80076; 80197; 81001; 82570; 83735; 84156; 85025; 85610; 87086

== ENCOUNTER 2024-12-16 09:48 | Outpatient (CLI) | payer OTHER, SELFPAY ==
--- OUTSIDE RECORDS SUMMARY | 2024-10-05 23:12 | XMS_ITS | Encounter Summary ---
Author Organization [facility] Address [facility] [address] [place] [address] Care Team Providers Care Loading Manager Name Role Phone Enedina Mcguire NP Primary Care Provider [phone] Source Comments This information has been disclosed [...] release of HIV test results or diagnoses. [id number] Reason for Referral * Surgical (Routine) - Pending Review Specialty Diagnoses / Procedures Referred By Shane hernadez Referred To Contact Gastroenterology Diagnoses Alcoholic cirrhosis of liver with ascites (CMS-HCC) Procedures Case request GI: EGGerri Min MD [address] [place] [address] Phone: tel: fax: Referral ID Status Reason Start Date Expiration Date V isits Requested Visits Authorized [id number] Pending Review 10/08/2024 04/06/2025 1 1 Reason for Visit * Auth/Cert (Routine) Specialty Diagnoses / Procedures Referred By Shane hernadez Referred To Contact General Internal Medicine Diagnoses [facility] [address] [place] [address] Phone: tel: Referral ID Status Reason Start Date Expiration Date Visits Re quested Visits Authorized [id number] 1 1 Encounter Details Date Type Department Care Team (Latest Contact Info) Description 10/05/2024 11:12 PM EDT - 10/17/2024 10:29 AM EDT Hospital Encounter [facility] [address] [place] [id number] Angie Blanchard MD [address] [place] [address] Fouzia Rene MD [address] [place] [address] Med/[place] [address] Chelsy Lerner MD [address] [place] [address] [place] [address] Alcoholic cirrhosis of liver with [...] Recorded In the past 12 months has [employer], gas, oil, or water [employer] threatened to shut off services in your [...] time in the past 12 m [facility], were you homeless or living in a retirement (including now)? No 10/06/2024 Yearly Questionnaire Answer [...] Home post discharge: Not Applicable Kandy BAE [facility] [phone] * William Blount MD - 10/17/2024 8:50 AM EDT [facility] Inpatient Discharge Summary Patient: Julien Gilbert Age: 39 y.o. CSN: [id number] Date of Admission: 10/05/2024 Date of Discharge: 10/17/2024 Attending Physician: Chelsy Lerner MD Primary Care Physician: Enedina Mcguire NP Diagnoses Present on Admission Past Medical History: Diagnosis Date Alcoholic cirrhosis of liver (CMS-HCC) Esophageal varices (CMS-HCC) Hepatorenal syndrome (CMS-HCC) Hypertension Other hyperlipidemia 07/26/2024 Renal cell carcinoma (CMS-HCC) Thrombocytopenia ([facility]-HCC) Thyroid disease Discharge Diagnoses Active Hospital Problems [...] Case IDs Date Procedure Surgeon Location Status [id number] 10/10/24 EGD Lino Soto MD ENDOSCOPY Comp [id number] 10/14/24 Left Heart Cath Irving Matta MD [...] at 10/08/2024 1:12 PM EDT US Duplex Qni-Yet-Arvrmvj Comp Final Result IMPRESSION: ABDOMEN 1. Cirrhotic [...] 90 tablet Refills: 0 naloxone 4 mg/actuation [place] Commonly known as: NARCAN Apply 1 spray [...] Your Medications These medications were sent to [facility] [address] [place] [id number] Hours: Sunday - Sunday: 8:00AM - 6:00PM FLUoxetine 20 MG capsule lactulose 10 gram/15 mL solution loratadine 10 mg tablet methocarbamoL 500 MG tablet midodrine 10 MG tablet naloxone 4 mg/actuation [place] oxyCODONE 5 MG immediate release tablet Discharge [...] Order Questions: Select Supplement: Boost-1 kcal/ml supplement ([facility] only) As listed above, low [...] AM EDT 10/17/2024 naloxone (NARCAN) 4 mg/actuation [place] Apply 1 spray in one nostril if [...] [facility] PROGRESS NOTE Name: Julien Gilbert CSN: [id number] Consulted by: Chelsy Lerner MD Reason for [...] Yes Past Week naloxone (NARCAN) 4 mg/actuation [place] Apply 1 spray in one nostril if [...] nucleated cells, <2000 RBCs 10% Polynuclear, 90% Falls nuc. There were initial reports of gram [...] of chemical dependency treatment as outpatient. - [facility] with no obstructive coronary disease - Psych eval for PTSD With recommendation of sertraline - Given his renal dysfunction, will plan to list for [facility] when he qualifies on 10/22/2024. Labs next week - Plan for d/c today Bobby Sidhu MD Transplant Manager Solar Please see the body of the resident, [...] reviewed independently any interval liver pathology. * Sooc Milton RN - 10/17/2024 6:35 AM EDT [...] remains <30 until October 22. Waiting for [facility] today. ASSESSMENT NADIYA on CKD, last [...] Staff. Jeremiah Gamino PGY4 Nephrology. Pager no. [phone] Chief Complaint No chief complaint on file. [...] at 10/08/2024 1:12 PM EDT US Duplex Iow-Hbv-Updgqdl Comp Final Result IMPRESSION: ABDOMEN 1. Cirrhotic [...] no head imaging has been performed at [facility]. -CT Head w/o contrast -Imaging showed no [...] Order Questions: Select Supplement: Boost-1 kcal/ml supplement ([facility] only) Code Status: Full Code Signed: WILLIAM BLOUNT MD 10/16/2024, 2:16 PM Cosigned by Chelsy Lerner MD at 10/16/2024 5:38 PM EDT Associated attestation - Chelsy Lerner MD - 10/16/2024 5:38 PM EDT [facility] Medicine Attending Supervision Note Julien Gilbert [...] another specialty or practice, other licensed professional (PT/OT/GLAZING DEPARTMENT SUPERVISOR/RT), or a non-medical community professional: Hepatology, Interventional [...] due to positioning during LHC on 10/14. [place] the worst in CVR, but has improved [...] nucleated cells, <2000 RBCs 10% Polynuclear, 90% Falls nuc. There were initial reports of gram [...] Based on CBW of 119.5 kg Kcals/day: 3573-1248 (18-21 kcals/kg) Protein g/day: 119-143 (1-1.2 g/kg) [...] Kumar RD, LD Clinical Dietitian Contact via [facility] * Jerad Hughes MD - 10/16/2024 11:03 AM EDT [facility] PROGRESS NOTE Name: Julien Gilbert CSN: [id number] Consulted by: Chelsy Lerner MD Reason for [...] nucleated cells, <2000 RBCs 10% Polynuclear, 90% Falls nuc. There were initial reports of gram [...] of chemical dependency treatment as outpatient. - [facility] with no obstructive coronary disease - Psych eval for PTSD With recommendation of sertraline - Given his renal dysfunction, will plan to list for [facility] when he qualifies on 10/22/2024. - Will follow Bobby Sidhu MD Transplant Manager Solar Please see the body of the resident, [...] remains <30 until October 22. Waiting for [facility] today. ASSESSMENT NADIYA on CKD, last [...] COMMENT on 10/08/2024 Iron%- Iron replete PLAN -[facility] yesterday- patient remains at risk of contrast related injury on top of exisiting NADIYA for 24-48 hrs after contrast load. -He is volume overloaded -patient needs to follow up closely with nephrology after discharge Thank you for allowing us to participate in this patient's care. Discussed with Consult Staff. Jeremiah Gamino PGY4 Nephrology. Pager no. [phone] Chief Complaint No chief complaint on file. [...] visitis Acute kidney injury superimposed on CKD ([facility]-HCC). NAEON. Pt's C yesterday without concern for [...] at 10/08/2024 1:12 PM EDT US Duplex Ztd-Uia-Kuhonag Comp Final Result IMPRESSION: ABDOMEN 1. Cirrhotic [...] no head imaging has been performed at [facility]. -CT Head w/o contrast -Imaging showed no [...] Order Questions: Select Supplement: Boost-1 kcal/ml supplement ([facility] only) Code Status: Full Code [...] another specialty or practice, other licensed professional (PT/OT/GLAZING DEPARTMENT SUPERVISOR/RT), or a non-medical community professional: Hepatology, Interventional [...] due to positioning during LHC on 10/14. [place] the worst in CVR, but has improved [...] [facility] PROGRESS NOTE Name: Julien Gilbert CSN: [id number] Consulted by: Chelsy Lerner MD Reason for [...] hyperlipidemia 07/26/2024 Renal cell carcinoma (CMS-HCC) Thrombocytopenia ([facility]-HCC) Thyroid disease Past Surgical History: Procedure Laterality [...] nucleated cells, <2000 RBCs 10% Polynuclear, 90% Falls nuc. There were initial reports of gram [...] - Will follow Bobby Sidhu MD Transplant Manager Solar Please see the body of the resident, [...] remains <30 until October 22. Waiting for [facility] today. ASSESSMENT NADIYA on CKD, last discharge creatinine 2.4 Baseline Creatinine 1.2-1.3, HRS- NADIYA as no response to holding lasix and albumin UA bland Urine lytes <10/< 15/ 50 Holding lasix give [facility] today Renal Function: Recent Labs 10/14/24 [...] COMMENT on 10/08/2024 Iron%- Iron replete PLAN -[facility] today -pt is volume up slightly -standing weights daily -c.w sodium bicarb tablets -discssed with the patient anad family about risk of needing HD after [facility] Thank you for allowing us to participate in this patient's care. Discussed with Consult Staff. Jeremiah Gamino PGY4 Nephrology. Pager no. [phone] Chief Complaint No chief complaint on file. [...] at 10/08/2024 1:12 PM EDT US Duplex Yzd-Lec-Nebifkp Comp Final Result IMPRESSION: ABDOMEN 1. Cirrhotic [...] not tolerate Stress ECHO on 10/09 - [facility] today -Per GI recs, started on [...] no head imaging has been performed at [facility]. -CT Head w/o contrast -Imaging showed no [...] never required dialysis. Patient is going for [facility] today and will receive contrast, okay [...] Order Questions: Select Supplement: Boost-1 kcal/ml supplement ([facility] only) Code Status: Full Code Signed: WILLIAM BLOUNT MD 10/14/2024, 10:26 AM Cosigned by Chelsy Lerner MD at 10/14/2024 11:53 AM EDT Associated attestation - Chelsy Lerner MD - 10/14/2024 11:53 AM EDT [facility] Medicine Attending Supervision Note Julien Gilbert [...] another specialty or practice, other licensed professional (PT/OT/GLAZING DEPARTMENT SUPERVISOR/RT), or a non-medical community professional: Hepatology, Interventional [...] [facility] PROGRESS NOTE Name: Julien Gilbert CSN: [id number] Consulted by: Chelsy Lerner MD Reason for [...] nucleated cells, <2000 RBCs 10% Polynuclear, 90% Falls nuc. There were initial reports of gram [...] eval ongoing. Transplant work up ongoing - [facility] today - Transplant nephrology following for [...] - Will follow Bobby Sidhu MD Transplant Manager Solar Please see the body of the resident, [...] Staff. Jeremiah Gamino PGY4 Nephrology. Pager no. [phone] Chief Complaint No chief complaint on file. [...] [facility] PROGRESS NOTE Name: Julien Gilbert CSN: [id number] Consulted by: Fouzia Rene MD Reason for [...] Alcoholic hepatitis Esophageal varices (CMS-HCC) Hepatorenal syndrome ([facility]-HCC) Hypertension Other hyperlipidemia 07/26/2024 Renal cell carcinoma [...] nucleated cells, <2000 RBCs 10% Polynuclear, 90% Falls nuc. There were initial reports of gram [...] eval ongoing. Transplant work up ongoing - [facility] today - Transplant nephrology following for [...] - Will follow Bobby Sidhu MD Transplant Manager Solar Please see the body of the resident, [...] any interval liver pathology. * Rebekah Linares, [facility] - 10/13/2024 12:30 PM EDT Start [...] no psychomotor abnormalities Cognition: short term and usp memory intact Attitude: cooperative Affect: full range [...] Order Questions: Select Supplement: Boost-1 kcal/ml supplement ([facility] only) Pertinent Information: Julien Gilbert [...] kg) Body mass index is 32.07 kg/m??. [place] Body Weight: 202 lbs (91.8 kg) +/- 10% Weight History: Wt Readings from Last 10 Encounters: 10/10/24 (!) 263 lb 8 oz (119.5 kg) 09/05/24 (!) 262 lb 9.6 oz (119.1 kg) 09/02/24 (!) 258 lb (117 kg) 08/17/24 (!) 242 lb 11.2 oz (110.1 kg) 07/28/24 (!) 245 lb (111.1 kg) Estimated Nutrition Needs: Based on CBW of 119.5 kg Kcals/day: 0994-1154 (18-21 kcals/kg) Protein g/day: 119-143 (1-1-2 g/kg) [...] Dietitian - Solid Organ Transplant Contact via [employer] * Eileen Schroeder MD, PhD - [...] at 10/08/2024 1:12 PM EDT US Duplex Odd-Pog-Lsumfqm Comp Final Result IMPRESSION: ABDOMEN 1. Cirrhotic [...] no head imaging has been performed at [facility]. -CT Head w/o contrast -Imaging showed no [...] Order Questions: Select Supplement: Boost-1 kcal/ml supplement ([facility] only) Code Status: Full Code [...] I reviewed the documentation by the medical front desk team member and agree as documented. Any additions or clarifications are listed below. Daily plan was discussed with patient at bedside and questions addressed. Patient ID: Julien Gilbert is a 39 y.o. male currently admitted for Acute kidney injury superimposed on CKD ([facility]-HCC) Supplemental History/ ROS: No acute events overnight [...] for Acute kidney injury superimposed on CKD ([facility]-HCC) Active Problems: NADIYA (acute kidney injury) on CKD ([facility]-HCC): Hepatorenal syndrome. Appreciate nephrology consult. S/p albumin X3. Baseline creatinine presumed to be around 2.5. Creatinine now seems to be fluctuating between 2.5-2.9 which may be his new baseline. We will continue to monitor. Spontaneous Bacterial Peritonitis ([facility]-HCC): Received 4 days of vancomycin, Ceftriaxone x 5d. Recent therapeutic paracentesis shows resolution. Continue Cipro prophylaxis Anemia: Multiple contributors. S/p 1 unit PRBC. Hemoglobin responded appropriately and remained stable. Will continue to monitor. Metabolic encephalopathy: Resolved. Likely related to combination of hepatic, metabolic, and possibly infectious insults. - Continue home lactulose and rifaximin Decompensated cirrhosis ([facility]-HCC): Appreciate hepatology consult. He has started his [...] was non-diagnostic due to hypotension. Plan for [facility] today, but now moved to tomorrow. [...] when medically ready. Consider d/c home after [facility] tomorrow. FOUZIA RENE MD Attending Physician Department of Internal Medicine 10/13/2024 Medical Decision Making: // LEVEL 2 MOD One chronic illness with exacerbation, progression, or side effects of treatment Discussed with physician/SAWYER from another specialty or practice, other licensed professional (PT/OT/GLAZING DEPARTMENT SUPERVISOR/RT), or a non-medical community professional: Nephrology, Hepatology [...] at 10/08/2024 1:12 PM EDT US Duplex Cbd-Xrk-Ejfuvdv Comp Final Result IMPRESSION: ABDOMEN 1. Cirrhotic [...] no head imaging has been performed at [facility]. -CT Head w/o contrast -Imaging showed no [...] Order Questions: Select Supplement: Boost-1 kcal/ml supplement ([facility] only) Code Status: Full Code [...] I reviewed the documentation by the medical front desk team member and agree as documented. Any additions or clarifications are listed below. Daily plan was discussed with patient at bedside and questions addressed. Patient ID: Julien Gilbert is a 39 y.o. male currently admitted for Acute kidney injury superimposed on CKD ([facility]-HCC) Supplemental History/ ROS: No acute events overnight [...] was non-diagnostic due to hypotension. Plan for [facility] tomorrow. - EGD completed. - Imaging [...] another specialty or practice, other licensed professional (PT/OT/GLAZING DEPARTMENT SUPERVISOR/RT), or a non-medical community professional: Nephrology, Hepatology [...] tid. cardiac workup pre txp. pLan for [facility] Sunday Liver transplant workup per GI/ [...] concern for hepatorenal syndrome.` Patient came from [facility], paracentesis was performed yesterday on 10/05? Fluid [...] 706.9 (H) 10/08/2024 No results found for: [id number] , FOLATE Lab Results Component Value Date [...] CRUR No results found for: MICROALBUR , [id number] In addition to the above an extensive [...] 4.6 10/12/2024 Lab Results Component Value Date [id number] 7.1 (L) 10/08/2024 PLAN Monitor renal panel [...] AM Colten Huertas MD, KISHOR LIN FNKF lead installer Div. of Nephrology [facility] E-mail: [email or web address] This note was completely edited, written [...] Rene MD Interval hx No issues. Pending [facility]. Assessment: Renal Function: Cr: 2.77 Bun: [...] concern for hepatorenal syndrome.` Patient came from [facility], paracentesis was performed yesterday on 10/05? Fluid [...] 706.9 (H) 10/08/2024 No results found for: PMPFPEQN20 , FOLATE Lab Results Component Value Date [...] CRUR No results found for: MICROALBUR , [id number] In addition to the above an extensive [...] 3.5 10/11/2024 Lab Results Component Value Date SCID15V 7.1 (L) 10/08/2024 PLAN Monitor renal panel [...] AM Colten Huertas MD, KISHOR LIN, FNDeclanF lead installer Div. of Nephrology [facility] [employer] E-mail: [email or web address] This note was completely [...] is Acute kidney injury superimposed on CKD ([facility]-HCC). NAEON Pt felt much better today. A&O [...] at 10/08/2024 1:12 PM EDT US Duplex Pmh-Tne-Ucksnbs Comp Final Result IMPRESSION: ABDOMEN 1. Cirrhotic [...] from outside facility. Will engage with them daily([phone]. Ask to speak to a tech) about [...] no head imaging has been performed at [facility]. -CT Head w/o contrast -Imaging showed no [...] Order Questions: Select Supplement: Boost-1 kcal/ml supplement ([facility] only) Code Status: Full Code [...] I reviewed the documentation by the medical front desk team member and agree as documented. Any additions or clarifications are listed below. Daily plan was discussed with patient at bedside and questions addressed. Patient ID: Julien Gilbert is a 39 y.o. male currently admitted for Acute kidney injury superimposed on CKD ([facility]-HCC) Supplemental History/ ROS: No acute events overnight [...] reflux disease) Anemia SBP (spontaneous bacterial peritonitis) ([facility]-HCC) Neck pain with history of cervical spinal [...] another specialty or practice, other licensed professional (PT/OT/GLAZING DEPARTMENT SUPERVISOR/RT), or a non-medical community professional: Nephrology, Hepatology, [...] Strictly monitor urine output No Indication for DISPENSING OPTICIAN APPRENTICE 3. Not a candidate for terlipressin per [...] Ignacio Queen MD Renal Fellow Pager # [phone] Chief Complaint No chief complaint on file. [...] concern for hepatorenal syndrome.` Patient came from [facility], paracentesis was performed yesterday on 10/05? Fluid [...] PHOS -- < > 3.5 3.4 3.3 RYXC09S 7.1* -- -- -- -- < > = values in this interval not displayed. Lab Results Component Value Date IRON 81 10/08/2024 TIBC SEE COMMENT 10/08/2024 FERRITIN 706.9 (H) 10/08/2024 No results found for: [id number] , FOLATE Lab Results Component Value Date [...] CRUR No results found for: MICROALBUR , [id number] In addition to the above an extensive [...] 3.3 10/10/2024 Lab Results Component Value Date [id number] 7.1 (L) 10/08/2024 PLAN Continue IV albumin [...] AM Colten Huertas MD, KISHOR LIN, CATHYF lead installer Div. of Nephrology [facility] E-mail: [email or web address] This note was completely edited, written [...] to follow pt while pt is at [facility]. Electronically signed by Rebekah Linares [facility] at 10/10/2024 1:08 PM EDT * Jodi Ortiz PharmD - 10/10/2024 10:27 AM EDT Clinical Pharmacy Service: Vancomycin Consult Progress Note Patient has been transitioned off of vancomycin therapy per team notes and orders. Pharmacy will sign-off at this time, please do not hesitate to consult again as needs arise. Thank you for involving pharmacy in the care of this patient. Jodi Ortiz PharmD Clinical Boiler House Supervisor, Internal Medicine Preferred contact: [employer] Clinical Zuqnekc-Qn-Pkqy Pager: [phone] October 10, 2024 10:27 AM Laboratory Data [...] 10/07/2024 10:50 PM Giardia Cryptosporidium Antigens Final [id number] 10/07/2024 10:50 PM Ova and Parasite Comprehensive w/ Giardia/Crypto Final [id number] Feces 10/06/2024 1:04 AM #2 Blood culture-Peripheral site 2 Preliminary [id number] Peripheral 10/06/2024 1:04 AM #1 Blood culture-Peripheral site 1 Preliminary [id number] Peripheral Pharmacokinetics Lab Results (Last 7 days) Today 0523 Yesterday 0459 10/08 0536 Vanc Rdm 16.4 11.0 16.0 * Gerri Peterson MD - 10/10/2024 10:09 AM EDT [facility] PROGRESS NOTE Name: Julien Gilbert CSN: [id number] Consulted by: Fouzia Rene MD Reason for [...] nucleated cells, <2000 RBCs 10% Polynuclear, 90% Falls nuc. Per OSH reports, ascitic fluid cultures [...] from the original note were not included. [facility] Clinical Pharmacy Service: Vancomycin Monitoring Consult [...] in sodium chloride 0.9 % 250 mL Voug5Woj (Completed) 1,500 mg Once 10/09/2024 10/09/2024 Admin Instructions: Contact pharmacy if there is a question/concern of whether vancomycin should begiven based on serum drug levels. Use Jxko3Bdm Adapter - Mix Thoroughly Before Administration Route: Intravenous vancomycin (VANCOCIN) 1,500 mg in sodium chloride 0.9 % 250 mL Mmpi5Pkl 1,500 mg Once 10/10/2024 10/11/2024 Admin Instructions: Contact pharmacy if there is a question/concern of whether vancomycin should begiven based on serum drug levels. Use Cnds9Jaf Adapter - Mix Thoroughly Before Administration Route: [...] in sodium chloride 0.9 % 250 mL Zjxu1Kqe 1,500 mg 166.7 mL/hr 10/08/24 1259 New Bag vancomycin (VANCOCIN) 1,000 mg in sodium chloride 0.9 % 250 mL Vhux7Esp 1,000 mg 250 mL/hr --Objective Data-- Vitals: [...] 53 53 54 Creatinine 2.85 2.89 3.04 [place] body weight: 86.8 kg (191 lb 5.7 oz) Adjusted ideal body weight: 99.9 kg (220 lb 3.5 oz) Estimated CrCl: ~35-45 mL/min --Cultures-- Microbiology Results Date and Time Order Name Sensitivity Status Organisms Specimen ID Source 10/07/2024 10:50 PM Giardia Cryptosporidium Antigens Final [id number] 10/07/2024 10:50 PM Ova and Parasite Comprehensive w/ Giardia/Crypto Final [id number] Feces 10/06/2024 1:04 AM #2 Blood culture-Peripheral site 2 Preliminary [id number] Peripheral 10/06/2024 1:04 AM #1 Blood culture-Peripheral site 1 Preliminary [id number] Peripheral --Vancomycin Concentrations-- Lab Results (Last 7 [...] for the consult. Jodi Ortiz, PharmD Clinical Boiler House Supervisor, Internal Medicine Preferred contact: [employer] Clinical Ooghwsy-Zh-Azcp Pager: [phone] October 10, 2024 9:13 AM * Eileen Schroeder MD, PhD - 10/10/2024 8:17 AM EDT Department of Internal Medicine Daily Progress Note Chief Complaint / Reason for Follow-Up Julien Gilbert is a 39 y.o. male on hospital day 5. The principal reason for today's follow up visit is Acute kidney injury superimposed on CKD ([facility]-HCC). KARENEMERLINE Pt was very conversational today. A&O [...] at 10/08/2024 1:12 PM EDT US Duplex Amm-Wrc-Wpbuyap Comp Final Result IMPRESSION: ABDOMEN 1. Cirrhotic [...] from outside facility. Will engage with them daily([phone]. Ask to speak to a tech) about [...] no head imaging has been performed at [facility]. -CT Head w/o contrast -Imaging showed no [...] Order Questions: Select Supplement: Boost-1 kcal/ml supplement ([facility] only) Code Status: Full Code [...] I reviewed the documentation by the medical front desk team member and agree as documented. Any additions or clarifications are listed below. Daily plan was discussed with patient at bedside and questions addressed. Patient ID: Julien Gilbert is a 39 y.o. male currently admitted for Acute kidney injury superimposed on CKD ([facility]) Supplemental History/ ROS: No acute events overnight [...] another specialty or practice, other licensed professional (PT/OT/GLAZING DEPARTMENT SUPERVISOR/RT), or a non-medical community professional: Nephrology, Hepatology, [...] Strictly monitor urine output No Indication for DISPENSING OPTICIAN APPRENTICE Not a candidate for terlipressin per liver due to HE, liver and kidney failure, on midodrine tid. Considering para today, cardiac workup pre txp Liver transplant workup per GI/ Primary team, considering for SLK, seen by renal transplant team Thank you for allowing us to participate in this patient's care. Discussed with Consult Staff. Ignacio Queen MD Renal Fellow Pager # [phone] Chief Complaint No chief complaint on file. [...] concern for hepatorenal syndrome.` Patient came from [facility], paracentesis was performed yesterday on 10/05? Fluid [...] 9.0 9.3 PHOS -- 3.5 3.5 3.4 [id number] 7.1* -- -- -- Lab Results Component Value Date IRON 81 10/08/2024 TIBC SEE COMMENT 10/08/2024 FERRITIN 706.9 (H) 10/08/2024 No results found for: [id number] , FOLATE Lab Results Component Value Date [...] CRUR No results found for: MICROALBUR , [id number] In addition to the above an extensive [...] 3.4 10/09/2024 Lab Results Component Value Date QLXM65C 7.1 (L) 10/08/2024 PLAN Continue IV albumin [...] PM Colten Huertas MD, KISHOR LIN FNKF lead installer Div. of Nephrology Formerly [facility] E-mail: [email or web address] This note was completely edited, written [...] [facility] HEPATOLOGY PROGRESS NOTE Name: Julien Gilbert CSN: [id number] Consulted by: Fouzia Rene MD Reason for [...] nucleated cells, <2000 RBCs 10% Polynuclear, 90% Falls nuc. Fluid cultures reportedly grew gram + [...] from the original note were not included. [facility] Clinical Pharmacy Service: Vancomycin Monitoring Consult [...] in sodium chloride 0.9 % 250 mL Cqdi8Dna (Completed) 1,000 mg Once 10/08/2024 10/08/2024 Admin Instructions: Contact pharmacy if there is a question/concern of whether vancomycin should begiven based on serum drug levels. Use Louh3Gfv Adapter - Mix Thoroughly Before Administration Route: Intravenous vancomycin (VANCOCIN) 1,500 mg in sodium chloride 0.9 % 250 mL Fkxt8Gbi 1,500 mg Once 10/09/2024 10/10/2024 Admin Instructions: Contact pharmacy if there is a question/concern of whether vancomycin should begiven based on serum drug levels. Use Xvyg6Ovu Adapter - Mix Thoroughly Before Administration Route: [...] in sodium chloride 0.9 % 250 mL Ieyl3Aam 1,000 mg 250 mL/hr 10/06/24 1413 New [...] 10/07/2024 10:50 PM Giardia Cryptosporidium Antigens Final [id number] 10/07/2024 10:50 PM Ova and Parasite Comprehensive w/ Giardia/Crypto Final [id number] Feces 10/06/2024 1:04 AM #2 Blood culture-Peripheral site 2 Preliminary [id number] Peripheral 10/06/2024 1:04 AM #1 Blood culture-Peripheral site 1 Preliminary [id number] Peripheral --Vancomycin Concentrations-- Lab Results (Last 7 [...] for the consult. Jodi Ortiz PharmD Clinical Boiler House Supervisor, Internal Medicine Preferred contact: [employer] Clinical Fonmzmf-Iw-Orby Pager: [phone] October 09, 2024 8:29 AM * Eileen [...] at 10/08/2024 1:12 PM EDT US Duplex Rrj-Ful-Sumizul Comp Final Result IMPRESSION: ABDOMEN 1. Cirrhotic [...] from outside facility. Will engage with them daily([phone]. Ask to speak to a tech) about [...] no head imaging has been performed at [facility]. -CT Head w/o contrast -Imaging showed no [...] Order Questions: Select Supplement: Boost-1 kcal/ml supplement ([facility] only) Code Status: Full Code [...] I reviewed the documentation by the medical front desk team member and agree as documented. Any additions or clarifications are listed below. Daily plan was discussed with patient at bedside and questions addressed. Patient ID: Julien Gilbert is a 39 y.o. male currently admitted for Acute kidney injury superimposed on CKD ([facility]) Supplemental History/ ROS: No acute events overnight [...] for Acute kidney injury superimposed on CKD ([facility]) Active Problems: Anemia: S/p 1 unit PRBC from yesterday. Hemoglobin responded appropriately and remained stable. Will continue to monitor. Metabolic encephalopathy: Mostly resolved. Likely related to combination of hepatic, metabolic, andpossibly infectious insults. - Continue home lactulose and rifaximin Spontaneous Bacterial Peritonitis ([facility]-HCC): Cultures from OSH are growing gram- positive organisms.We continue to await speciation. He remains afebrile and vital signs have been stable. - Continue vancomycin and ceftriaxone for now. - Will follow-up on speciation and sensitivities. Decompensated cirrhosis ([facility]): Appreciate hepatology consult. He has started his [...] another specialty or practice, other licensed professional (PT/OT/GLAZING DEPARTMENT SUPERVISOR/RT), or a non-medical community professional: Nephrology, Hepatology Labs reviewed (1 pt each): CBC, CMP, INR & other daily labs Review of notes from a different specialty or different practice: Nephrology, Anesthesiology hepatology, * Gerri Peterson MD - 10/08/2024 1:40 PM EDT [facility] HEPATOLOGY PROGRESS NOTE Name: Julien Gilbert CSN: [id number] Consulted by: Fouzia Rene MD Reason for [...] nucleated cells, <2000 RBCs 10% Polynuclear, 90% Falls nuc. Fluid cultures reportedly grew gram + [...] disease (ESRD) patient in a hospital based, [facility]-hospital based, or home setting. -At [...] I have discussed this plan with the project development coordinator and the liver transplant team. Cosigned [...] admisson Aaron Gonzalez MD, FASN, MEd * Joid Ortiz, PharmD - 10/08/2024 9:13 AM EDT Images from the original note were not included. [facility] Clinical Pharmacy Service: Vancomycin Monitoring Consult [...] in sodium chloride 0.9 % 250 mL Wjjt2Byt 1,000 mg Once 10/08/2024 10/09/2024 Admin Instructions: Contact pharmacy if there is a question/concern of whether vancomycin should begiven based on serum drug levels. Use Eeeg3Alz Adapter - Mix Thoroughly Before Administration Route: [...] 10/07/2024 10:50 PM Giardia Cryptosporidium Antigens Final [id number] 10/07/2024 10:50 PM Ova and Parasite Comprehensive w/ Giardia/Crypto In process [id number] Feces 10/06/2024 1:04 AM #2 Blood culture-Peripheral site 2 Preliminary [id number] Peripheral 10/06/2024 1:04 AM #1 Blood culture-Peripheral site 1 Preliminary [id number] Peripheral --Vancomycin Concentrations-- Lab Results (Last 7 [...] for the consult. Jodi Ortiz PharmD Clinical Boiler House Supervisor, Internal Medicine Preferred contact: [employer] Clinical Rdndfbc-Rk-Tmex Pager: [phone] October 08, 2024 9:13 AM * Eileen [...] FREET4 0.74 09/03/2024 Diagnostic Studies US Duplex Kqw-Ryp-Oouzpmt Comp Final Result IMPRESSION: ABDOMEN 1. Cirrhotic [...] no head imaging has been performed at [facility]. -CT Head w/o contrast -Imaging showed no [...] Order Questions: Select Supplement: Boost-1 kcal/ml supplement ([facility] only) Code Status: Full Code [...] I reviewed the documentation by the medical front desk team member and agree as documented. Any additions or [...] home lactulose and rifaximin Spontaneous Bacterial Peritonitis ([facility]): Cultures from OSH are growing gram- positive organisms.We continue to await speciation. He remains afebrile and vital signs have been stable. - Continue vancomycin and ceftriaxone for now. - Will follow-up on speciation and sensitivities. Decompensated cirrhosis ([facility]): Appreciate hepatology consult. He has started his [...] tomorrow NADIYA (acute kidney injury) on CKD ([facility]): Appreciate nephrology consult. Likely [...] Problem: Metabolic encephalopathy Active Problems: Decompensated cirrhosis ([facility]) Acute kidney injury superimposed on CKD ([facility]) Thrombocytopenia ([facility]) Renal mass, left Metabolic acidosis with normal [...] another specialty or practice, other licensed professional (PT/OT/GLAZING DEPARTMENT SUPERVISOR/RT), or a non-medical community professional: Nephrology, Hepatology [...] Strictly monitor urine output No Indication for DISPENSING OPTICIAN APPRENTICE Not a candidate for terlipressin per liver due to HE, liver ans kidney failure, on midodrine tid Liver transplant workup per GI/ Primary team, considering for SLK Thank you for allowing us to participate in this patient's care. Discussed with Consult Staff. Ignacio Queen MD Renal Fellow Pager # [phone] Chief Complaint No chief complaint on file. [...] concern for hepatorenal syndrome.` Patient came from [facility], paracentesis was performed yesterday on 10/05? Fluid pending for SBP analysis Histories he has a past medical history of Alcoholic cirrhosis of liver (CMS-HCC), Alcoholic hepatitis, Esophageal varices ([facility]), Hepatorenal syndrome ([facility]- HCC), Hypertension, Other hyperlipidemia (07/26/2024), Renal cell [...] TIBC , FERRITIN No results found for: VNOTAMJV50 , FOLATE Lab Results Component Value Date [...] <15 No results found for: MICROALBUR , [id number] In addition to the above an extensive [...] 4.0 10/08/2024 Lab Results Component Value Date HTQM86J 7.1 (L) 10/08/2024 PLAN Continue IV albumin [...] AM Colten Huertas MD, KISHOR LIN FNKF lead installer Div. of Nephrology [facility] E-mail: [email or web address] This note was completely edited, written [...] from the original note were not included. [facility] Clinical Pharmacy Service: Vancomycin Monitoring Consult [...] AM #2 Blood culture-Peripheral site 2 Preliminary [id number] Peripheral 10/06/2024 1:04 AM #1 Blood culture-Peripheral site 1 Preliminary [id number] Peripheral --Vancomycin Concentrations-- Lab Results (Last 7 [...] for the consult. Jodi Ortiz PharmD Clinical Boiler House Supervisor, Internal Medicine Preferred contact: [employer] Clinical Kwlgjwk-Tg-Xmfy Pager: [phone] October 07, 2024 5:01 PM * Yamile [...] [facility] HEPATOLOGY PROGRESS NOTE Name: Julien Gilbert CSN: [id number] Consulted by: Fouzia Rene MD Reason for [...] nucleated cells, <2000 RBCs 10% Polynuclear, 90% Falls nuc. Fluid cultures reportedly grewgram + rods. [...] in liver selection meeting and clearance by professor of social work. Please order CT cardiac coronary evaluation, transplant [...] Strictly monitor urine output No Indication for DISPENSING OPTICIAN APPRENTICE Liver transplant workup per GI/ Primary team Thank you for allowing us to participate in this patient's care. Discussed with Consult Staff. Ignacio Queen MD Renal Fellow Pager # [phone] Chief Complaint No chief complaint on file. [...] concern for hepatorenal syndrome.` Patient came from [facility], paracentesis was performed yesterday on 10/05? Fluid [...] TIBC , FERRITIN No results found for: [id number] , FOLATE Lab Results Component Value Date [...] <15 No results found for: MICROALBUR , [id number] In addition to the above an extensive [...] PHOS 4.2 10/07/2024 No results found for: QKWQ03Z PLAN Continue IV albumin Monitor renal panel [...] AM Colten Huertas MD, KISHOR LIN, FNDeclanF lead installer Div. of Nephrology [facility] E-mail: [email or web address] * Carmen Bernal OT - 10/07/2024 [...] at 10/06/2024 2:33 AM EDT US Duplex Vip-Hax-Wgbmzhp Comp (Results Pending) US Abdomen Complete (Results [...] no head imaging has been performed at [facility]. -CT Head w/o contrast -Imaging showed no [...] Order Questions: Select Supplement: Boost-1 kcal/ml supplement ([facility] only) Code Status: Full Code [...] I reviewed the documentation by the medical front desk team member and agree as documented. Any additions or [...] and mental status is improving. Decompensated cirrhosis ([facility]): Appreciate hepatology consult. He has started his transplant evaluation as an outpatient. We will follow-up with hepatology to discuss any inpatient testing that may need to be needed. - MELD labs daily - Continue home regimen with ursodiol, rifaximin and lactulose NADIYA (acute kidney injury) ([facility]-H[facility]): Appreciate nephrology consult. Likely has hepatorenal syndrome. [...] needed for pain. Continue to monitor. Thrombocytopenia ([facility]) Renal mass, left CKD (chronic kidney disease) stage 4, GFR 15-29 ml/min ([facility]) Metabolic acidosis with normal anion gap and bicarbonate losses GERD (gastroesophageal reflux disease) Aphasia Continue management for other medical problems per resident / AI note. Disp: Anticipate DC home with spouse when medically ready. Awaiting final speciation for de-escalation of antibiotics and final recs from hepatology. FOUIZA RENE MD Attending Physician Department of Internal Medicine 10/07/2024 Medical Decision Making: Severe exacerbation of chronic illness Discussed with physician/SAWYER from another specialty or practice, other licensed professional (PT/OT/GLAZING DEPARTMENT SUPERVISOR/RT), or a non-medical community professional: Nephrology, Hepatology Labs reviewed (1 pt each): CMP, CBC Test results reviewed (1 pt each): CXR, Head CT Review of notes from a different specialty or different practice: Nephrology, hepatology Use of parenteral controlled substances * Kiet Gardiner, PharmD - 10/06/2024 1:07 PM EDT Images from the original note were not included. [facility] Clinical Pharmacy Service: Vancomycin Monitoring Consult [...] AM #2 Blood culture-Peripheral site 2 Preliminary [id number] Peripheral 10/06/2024 1:04 AM #1 Blood culture-Peripheral site 1 Preliminary [id number] Peripheral --Vancomycin Concentrations-- Lab Results (Last 7 [...] US Retroperitoneal complete (Results Pending) US Duplex Cyl-Mbk-Xozyrtz Comp (Results Pending) CT Head WO contrast [...] PM EDT Hospital Medicine Attending Supervision Note [facility] // [facility] Julien Gilbert was seen 10/06/24 on [...] 10/05/2024 2:42 PM EDT [facility] Department of Medicine TRANSFER CALL NOTE Location [facility] ED History of Present Illness Julien [...] nearest ED, with plan to transfer to [facility] if needing admission. In the [...] Studies: Na 129 K 4.2 Cl 101 Nptvwj89 BUN 62 (up from baseline) Cr 3.6 [...] MD - 10/14/2024 1:10 PM EDT [facility] PRE-SEDATION ASSESSMENT, HISTORY & PHYSICAL Date: 10/14/2024 [...] Neuro: AOx3 AUC For Cath Indication(s) for Beauty [employer] Instructor Visit: Visit Indicators: Suspected CAD 2. Chest Pain Symptom Assessment: Asymptomatic 3. Heart Failure: Yes Class II 4. CHSA Clinical Frailty Scale: Mildly Frail Sedation Plan: Moderate Sedation with Local Anesthesia Antibiotic prophylaxis is not indicated. Mani Quan Interventional Production Checker Pager: [phone] [1] Patient Active Problem List Diagnosis Decompensated [...] MD - 10/10/2024 10:05 AM EDT [facility] PRE-SEDATION ASSESSMENT, HISTORY & PHYSICAL Date: 10/10/2024 [...] Low Risk (07/09/2024) Received from [facility] Overall Financial Resource Strain (CARDIA) Difficulty of [...] No Physical Activity: Unknown (07/14/2024) Received from [facility] Exercise Vital Sign Days of Exercise per Week: Patient unable to answer Minutes of Exercise per Session: Not on file Stress: Patient Unable To Answer (07/14/2024) Received from [facility] [employer] - Occupational Stress Questionnaire Feeling of Stress : Patient unable to answer Social Connections: Patient Unable To Answer (07/14/2024) Received from [facility] Social Connection and Isolation Panel [NHANES] Frequency of Communication with Friends and Family: Patient unable to answer Frequency of Social Gatherings with Friends and Family: Patient unable to answer Attends Religion Services: Patient unable to answer Active Member [...] values in this interval not displayed. Imaging: @[id number]@ I have personally reviewed the imaging and have noted the following: Large recanalized umbilical vein Perihilar varices Replaced right hepatic artery Splenomegaly Spontaneous splenorenal shunt Large volume ascites, No portal vein thrombosis Assessment/Plan: A 39 y.o. male with ETOH decompensated by ascites, hepatic encephalopathy,bleeding esophageal Varices. Use and allocation of SCD, DIRECTOR OF MAINTENANCE, DCD and LDLT allografts discussed in detail. [...] from surgery (5%). I also explained the usp risks of transplantation and immunosuppression including viral [...] for him to report. Pt arrived with [email or web address] folder of paperwork from OSH and a disk that was taken to Radiology overnight for imaging upload. [facility] performed a bedside paracentesis and sent studies for SBP analysis. Willcontact [facility] to see if labs have resulted. Review of Systems 14 pt ROS conducted and negative aside from that mentioned in above HPI Past Medical and Social History Lives in [place], [place] at bedside Notes that the patient [...] OSH Repeat labs pending on admission to [facility] Assessment & Plan Julien Gilbert [...] AM EDT Hospital Medicine Attending Supervision Note [facility] // [facility] Julien Gilbert was seen 10/06/24 on [...] confusion and lethargy. HE was seen at [facility] ED were CT head unremarkable and RUQ with gallstones, abdominal ascites diagnostic para done and started on empiric CTX. Labs remarkable at OSH for K 4.2 Cl 101 Dejxcr05 BUN 62 (up from baseline) Cr 3.6 [...] another specialty or practice, other licensed professional (PT/OT/GLAZING DEPARTMENT SUPERVISOR/RT), or a non-medical community professional: ed team [...] Medicine Department of Internal Medicine Pager ID: [phone] 6:04 AM, 10/06/2024 documented in this encounter [...] CNP Vascular & Interventional Radiology 10/10/2024,1:55 PM [facility]: [phone]) * Lino Soto MD - 10/10/2024 12:06 PM EDT EGD Brief Op Note Julien Gilbert 10/05/2024 - 10/10/2024 Pre-op Diagnosis: Alcoholic cirrhosis of liver with ascites (CMS-HCC) [K70.31] Post-op Diagnosis: Portal gastropathy, Medium size, non-bleeding esophageal varices Procedure(s): EGD Surgeon(s): Lino Soto MD Anesthesia: MAC (Monitor Anesthesia Care) Staff: Fellow: Gerri Peterson MD Endoscopy Nurse: Kandice Castaneda RN Farm Management Agent: Diana Kemp Estimated Blood Loss: Minimal Specimens: Drains: There were no complications unless listed below. LINO SOTO MD Date: 10/10/2024 Time: 12:18 PM * Lino Soto MD - 10/10/2024 11:48 AM EDT [id number] Procedure Date: 10/10/2024 11:48 AM Patient Name: Julien Gilbert Date of : 1985 Admit Type: Inpatient Age: 39 Gender: Male Note Status: Finalized Attending MD: Lino Soto MD, [id number] Procedure: Upper GI endoscopy Indications: Gastroesopahgeal variceal [...] verified by the physician, the nurse, the strategic intelligence officer and the mold repair technician in the pre-procedure area in [...] to hypotension Procedure Code(s): --- Professional --- 28286, GC, Esophagogastroduodenoscopy, flexible, transoral; diagnostic, including collection of specimen(s) by brushing or washing, when performed (separate procedure) Diagnosis Code(s): --- Professional --- I85.00, Esophageal 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 All rights reserved. 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 Describes significant anxiety that occasionally limits his ability to drive, and stated he has to pulley man occasionally to collect himself, thought denied specific [...] need for sleep. Has not been on [employer] for mental health since stopping the cymbalta. [...] mother is and his father resides in [facility]. Patient earned a graduate degree and never served in the . 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 He was raised Anabaptist and denied current engagement in any community [...] at baseline or with provocation, shows no xhjyt-yh-annr atrial level shunt. - Pulmonary arteries: Systolic [...] 10/13/24, please keep NPO on 10/12/24 at [place] Risks and benefits of new therapies added and new invasive and non-invasive procedures/diagnostic testing planned discussed with and understood by the patient/family who agree with the above plan. Plan discussed with the attending physician Dr. Blanco. Recommendations are preliminary until this note is co- signed by the attending. Follow up appointments with Cardiology can be scheduled by calling [phone]. Thank you for the opportunity to participate in this patient's care. Please call orpage with any questions. Leonor Garcia MD Production Checker I have personally seen, examined, reviewed all [...] 0659 10/11/24 0700 - 10/12/24 0659 Shift [id number] 24 Hour Total 0722-9776 8514-9258 0280-1199 24 Hour Total INTAKE P.O. 3374 347 8759 P.O. 9931 343 7531 Boost (mL) - [facility] only 240 240 I.V.(mL/kg) 450(3.8) [...] (See Comments) Became Manic * Bakari Wahl, [facility] - 10/10/2024 10:07 AM EDT Interventional Radiology [...] CNP Vascular & Interventional Radiology 10/10/2024,1:54 PM [facility]: [phone]) [1] Social History Tobacco Use Smoking Status [...] Order(s): IP CONSULT TO INFECTIOUS DISEASES [facility] DEPARTMENT OF INFECTIOUS DISEASE INITIAL NOTE Referring Physician: Fouzia Rene MD Consult Attending: Daria Garcia Patient: Julien Gilbert CSN: [id number] Reason for Consult: CC: Abx management History [...] HE. He was born and raised in [facility] . No travel to [facility]. 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 [...] Low Risk (07/09/2024) Received from [facility] Overall Financial Resource Strain (CARDIA) Difficulty of [...] No Physical Activity: Unknown (07/14/2024) Received from [facility] Exercise Vital Sign Days of Exercise per Week: Patient unable to answer Minutes of Exercise per Session: Not on file Stress: Patient Unable To Answer (07/14/2024) Received from [facility] [employer] - Occupational Stress Questionnaire Feeling of Stress : Patient unable to answer Social Connections: Patient Unable To Answer (07/14/2024) Received from [facility] Social Connection and Isolation Panel [NHANES] Frequency of Communication with Friends and Family: Patient unable to answer Frequency of Social Gatherings with Friends and Family: Patient unable to answer Attends Religion Services: Patient unable to answer Active Member [...] day. Qty: 60 tablet, Refills: 0 Comments: [facility] in [place] [address] sodium bicarbonate 650 MG tablet Take 2 [...] Aphasia [R47.01] 10/06/2024 SBP (spontaneous bacterial peritonitis) ([facility]) [K65.2] 09/08/2024 Metabolic acidosis with normal anion gap and bicarbonate losses [E87.20] 09/03/2024 CKD (chronic kidney disease) stage 4, GFR 15-29 ml/min ([facility]) [N18.4] 09/03/2024 GERD (gastroesophageal reflux disease) [K21.9] 09/03/2024 Renal mass, left [N28.89] 08/18/2024 Thrombocytopenia ([facility]) [D69.6] Decompensated cirrhosis ([facility]) [K72.90, K74.60] 07/25/2024 NADIYA (acute kidney injury) ([facility]) [N17.9] 07/25/2024 Resolved Hospital Problems No resolved [...] Signed: Daria Garcia MD 10/08/2024, 9:46 AM [phone] [1] Allergies Allergen Reactions Adhesive Itching and [...] Low Risk (07/09/2024) Received from [facility] Overall Financial Resource Strain (CARDIA) Difficulty of [...] No Physical Activity: Unknown (07/14/2024) Received from [facility] Exercise Vital Sign Days of Exercise per Week: Patient unable to answer Minutes of Exercise per Session: Not on file Stress: Patient Unable To Answer (07/14/2024) Received from [facility] [place] [place] [facility] [employer] [facility] - Occupational Stress Questionnaire Feeling of Stress : Patient unable to answer Social Connections: Patient Unable To Answer (07/14/2024) Received from [facility] Social Connection and Isolation Panel [NHANES] Frequency of Communication with Friends and Family: Patient unable to answer Frequency of Social Gatherings with Friends and Family: Patient unable to answer Attends Religion Services: Patient unable to answer Active Member [...] is no recent study available for direct [id number] comparison. Left Ventricle The left ventricle is [...] pressures < 35 mmHgon [address] echo from [facility] 07/15/24. No ischemic workup noted. ECG [...] surgery with risk (OLT/OKT) Los Broussard MD, [facility] Department of Anesthesiology [1] Allergies Allergen Reactions Adhesive Itching and Rash Tegaderm adhesive on Ivs, pt states its tolerable Duloxetine Other (See Comments) Became Manic [2] Patient Active Problem List Diagnosis Decompensated cirrhosis ([facility]) NADIYA (acute kidney injury) ([facility]) Alcohol use disorder Metabolic encephalopathy Hypertension Other hyperlipidemia Thrombocytopenia (CMS-HCC) Renal mass, left Abdominal pain Hypokalemia CKD (chronic kidney disease) stage 4, GFR 15-29 ml/min ([facility] Metabolic acidosis with normal anion gap and bicarbonate losses GERD (gastroesophageal reflux disease) Hypothyroidism Itching Anemia BRBPR (bright red blood per rectum) SBP (spontaneous bacterial peritonitis) ([facility]) C Diff Diarrhea [...] MD PCP: Enedina Mcguire NP Home Pharmacy: [facility] [address] [place] [phone] [facility] [address] [place] [address] Issues related to obtaining medications: Payor Information Medical Insurance Coverage: Payor: [facility] / Plan: [facility] / Product Type: *No Producttype* / Secondary Payor: Functional Assessment Functional Assessment Assessment Information Obtained From:: Patient Current Mental Status: Awake, Oriented to Person, Oriented to Place, Oriented to Time, Oriented to Situation Mental Health History: Yes Behavioral Health Agency Involvement: Yes Behavioral Health Agency Name: Other (Comment) (states he used [facility] for mental health help) Do [...] Was any abuse reported by patient?: No [place] Status & Connection to VA Services Status [...] confusion and lethargy. HE was seen at [facility] ED were CT head unremarkable and RUQ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 10/14/2024 8:55 AM EDT [facility] Rh Type Positive 10/14/2024 8:55 AM EDT [facility] Blood 10/14/2024 8:21 AM EDT 10/14/2024 8:33 AM EDT us Eleazar Nguyễn MD BLOOD BANK TEST ORDERAB LES Final Result Performing Organization Address [facility] Co de Phone Number [facility] [address] * (ABNORMAL) Protime-INR (10/14/2024 2:53 AM [...] Final Result [facility] [address] [place] [id number], [facility] * (ABNORMAL) Hepatic Function Panel (10/14/2024 2:53 AM EDT) Total Bilirubin 7.2(H) 0.0 - 1.5 mg/dL 10/14/2024 4:45 AM EDT [facility] Bilirubin, Direct 3.86(H) 0.00 - 0.40 mg/dL 10/14/2024 4:45 AM EDT [facility] AST 41(H) 13 - 39 U/L 10/14/2024 4:45 AM EDT [facility] ALT 22 7 - 52 U/L 10/14/2024 4:45 AM EDT [facility] Alkaline Phosphatase 119 36 - 125 U/L 10/14/2024 4:45 AM EDT [facility] Total Protein 4.6(L) 6.4 - 8.9 g/dL 10/14/2024 4:45 AM EDT [facility] Albumin 3.3(L) 3.5 - 5.7 g/dL 10/14/2024 4:45 AM EDT [facility] Bilirubin, Indirect 3.34(H) 0.00 - 1.10 mg/dL 10/14/2024 4:45 AM EDT [facility] Plasma 10/14/2024 2:53 AM EDT 10/14/2024 4:16 AM EDT us Eileen Schroeder MD, PhD LAB BLOOD ORDERABLES Final Result Performing Organization Address City/[facility]/ZIP Co de Phone Number [facility] [address] * Magnesium (10/14/2024 2:53 AM EDT) Magnesium 1.9 1.5 - 2.5 mg/dL 10/14/2024 4:45 AM EDT [facility] Plasma 10/14/2024 2:53 AM EDT 10/14/2024 4:16 AM EDT us Eileen Schroeder MD, PhD LAB BLOOD ORDERABLES Final Result Performing Organization Address [facility] Co de Phone Number [facility] [address] * (ABNORMAL) Renal Function Panel w/EGFR (10/14/2024 2:53 AM EDT) Sodium 136 133 - 146 mmol/L 10/14/2024 4:45 AM EDT [facility] Potassium 3.5 3.5 - 5.3 mmol/L 10/14/2024 4:45 AM EDT [facility] Chloride 107 98 - 110 mmol/L 10/14/2024 4:45 AM EDT [facility] CO2 16(L) 21 - 33 mmol/L 10/14/2024 4:45 AM EDT [facility] Anion Gap 13 3 - 16 mmol/L 10/14/2024 4:45 AM EDT [facility] BUN 55(H) 7 - 25 mg/dL 10/14/2024 4:45 AM EDT [facility] Creatinine 3.01(H) 0.60 - 1.30 mg/dL 10/14/2024 4:45 AM EDT [facility] Glucose 95 70 - 100 mg/dL 10/14/2024 4:45 AM EDT [facility] Calcium 8.5(L) 8.6 - 10.3 mg/dL 10/14/2024 4:45 AM EDT [facility] Phosphorus 4.4 2.1 - 4.7 mg/dL 10/14/2024 4:45 AM EDT [facility] Albumin 3.3(L) 3.5 - 5.7 g/dL 10/14/2024 4:45 AM EDT [facility] Osmolality, Calculated 297 278 - 305 mOsm/kg 10/14/2024 4:45 AM EDT [facility] EGFR 26 10/14/2024 4:45 AM EDT [facility] Comment:As of 2021, the estimated GFR [...] PhD LAB BLOOD ORDERABLES Final Result [facility] [address] [address] * (ABNORMAL) CBC (10/14/2024 2:53 AM EDT) WBC 5.5 3.8 - 10.8 10E3/uL 10/14/2024 5:00 AM EDT [facility] RBC 2.09(L) 4.20 - 5.80 10E6/uL 10/14/2024 5:00 AM EDT [facility] Hemoglobin 7.6(L) 13.2 - 17.1 g/dL 10/14/2024 5:00 AM EDT [facility] Hematocrit 21.3(L) 38.5 - 50.0 % 10/14/2024 5:00 AM EDT [facility] MCV 101.7(H) 80.0 - 100.0 fL 10/14/2024 5:00 AM EDT [facility] MCH 36.3(H) 27.0 - 33.0 pg 10/14/2024 5:00 AM EDT [facility] MCHC 35.7 32.0 - 36.0 g/dL 10/14/2024 5:00 AM EDT [facility] RDW 17.6(H) 11.0 - 15.0 % 10/14/2024 5:00 AM EDT [facility] Platelets 35(L) 140 - 400 10E3/uL 10/14/2024 5:00 AM EDT [facility] Comment: Specimen checked for clots. None detected. Slide Reviewed for PLT Clumps. None Seen. MPV 8.5 7.5 - 11.5 fL 10/14/2024 5:00 AM EDT [facility] Whole Blood 10/14/2024 2:53 AM EDT 10/14/2024 4:17 AM EDT us Eileen Schroeder MD, PhD LAB BLOOD ORDERABLES Final Result [facility] [address] * Cardiac Cath Documents Scan (10/14/2024 [...] mL of GADOBUTROL 1 MMOL/ML INTRAVENOUS SYRINGE ([facility]) administered intravenously COMPARISON: CT 09/03/2024. [...] mL of GADOBUTROL 1 MMOL/ML INTRAVENOUS SYRINGE ([facility])administered intravenously COMPARISON: CT 09/03/2024. Ultrasound [...] (ABNORMAL) Protime-INR (10/13/2024 5:35 AM EDT) Pathologist [facility] Protime 24.4(H) 12.1 - 15.1 seconds 10/13/2024 6:12 AM EDT [facility] INR 2.1(H) 0.9 - 1.1 10/13/2024 6:12 AM EDT [facility] Comment: RECOMMENDED THERAPEUTIC RANGES USING INR : Stable oral anticoagulant therapy: 2.0 - 3.0 Mechanical prosthetic heart valve: 2.5 - 3.5 Recurrent acute myocardial infarction: 2.5 - 3.5 Plasma 10/13/2024 5:35 AM EDT 10/13/2024 5:52 AM EDT us Eileen Schroeder MD, PhD LAB BLOOD ORDERABLES Final Result [facility] [address] * (ABNORMAL) Hepatic Function Panel (10/13/2024 5:35 AM EDT) Total Bilirubin 6.5(H) 0.0 - 1.5 mg/dL 10/13/2024 6:30 AM EDT [facility] Bilirubin, Direct 3.53(H) 0.00 - 0.40 mg/dL 10/13/2024 6:30 AM EDT [facility] AST 42(H) 13 - 39 U/L 10/13/2024 6:30 AM EDT [facility] ALT 19 7 - 52 U/L 10/13/2024 6:30 AM EDT [facility] Alkaline Phosphatase 108 36 - 125 U/L 10/13/2024 6:30 AM EDT [facility] Total Protein 4.4(L) 6.4 - 8.9 g/dL 10/13/2024 6:30 AM EDT [facility] Albumin 3.1(L) 3.5 - 5.7 g/dL 10/13/2024 6:30 AM EDT [facility] Bilirubin, Indirect 2.97(H) 0.00 - 1.10 mg/dL 10/13/2024 6:30 AM EDT [facility] Plasma 10/13/2024 5:35 AM EDT 10/13/2024 5:52 AM EDT Eileen Schroeder MD, PhD LAB BLOOD ORDERABLES Final Result Performing Organization Address [facility]/ZIP Co de Phone Number [facility] [address] [facility]. [address] * Magnesium (10/13/2024 5:35 AM EDT) Magnesium 2.0 1.5 - 2.5 mg/dL 10/13/2024 6:30 AM EDT [facility] Plasma 10/13/2024 5:35 AM EDT 10/13/2024 5:52 AM EDT Eileen Schroeder MD, PhD LAB BLOOD ORDERABLES Final Result Performing Organization Address [facility]/ZIP Co de Phone Number [facility] [address] * (ABNORMAL) Renal Function Panel w/EGFR (10/13/2024 5:35 AM EDT) Sodium 134 133 - 146 mmol/L 10/13/2024 6:30 AM EDT [facility] Potassium 3.7 3.5 - 5.3 mmol/L 10/13/2024 6:30 AM EDT [facility] Chloride 109 98 - 110 mmol/L 10/13/2024 6:30 AM EDT [facility] CO2 14(L) 21 - 33 mmol/L 10/13/2024 6:30 AM EDT [facility] Anion Gap 11 3 - 16 mmol/L 10/13/2024 6:30 AM EDT [facility] BUN 54(H) 7 - 25 mg/dL 10/13/2024 6:30 AM EDT [facility] Creatinine 2.99(H) 0.60 - 1.30 mg/dL 10/13/2024 6:30 AM EDT [facility] Glucose 116(H) 70 - 100 mg/dL 10/13/2024 6:30 AM EDT [facility] Calcium 8.3(L) 8.6 - 10.3 mg/dL 10/13/2024 6:30 AM EDT [facility] Phosphorus 4.5 2.1 - 4.7 mg/dL 10/13/2024 6:30 AM EDT [facility] Albumin 3.1(L) 3.5 - 5.7 g/dL 10/13/2024 6:30 AM EDT [facility] Osmolality, Calculated 294 278 - 305 mOsm/kg 10/13/2024 6:30 AM EDT [facility] EGFR 26 10/13/2024 6:30 AM EDT [facility] Comment:As of 2021, the estimated GFR [...] PhD LAB BLOOD ORDERABLES Final Result [facility] [address] [place] [address], [facility] * (ABNORMAL) CBC (10/13/2024 5:35 AM EDT) WBC 4.7 3.8 - 10.8 10E3/uL 10/13/2024 6:22 AM EDT [facility] RBC 2.06(L) 4.20 - 5.80 10E6/uL 10/13/2024 6:22 AM EDT [facility] Hemoglobin 7.4(L) 13.2 - 17.1 g/dL 10/13/2024 6:22 AM EDT [facility] Hematocrit 21.7(L) 38.5 - 50.0 % 10/13/2024 6:22 AM EDT [facility] MCV 105.4(H) 80.0 - 100.0 fL 10/13/2024 6:22 AM EDT [facility] MCH 35.9(H) 27.0 - 33.0 pg 10/13/2024 6:22 AM EDT [facility] MCHC 34.0 32.0 - 36.0 g/dL 10/13/2024 6:22 AM EDT [facility] RDW 18.5(H) 11.0 - 15.0 % 10/13/2024 6:22 AM EDT [facility] Platelets 35(L) 140 - 400 10E3/uL 10/13/2024 6:22 AM EDT [facility] Comment: CNV Specimen checked for clots. None detected. MPV 8.4 7.5 - 11.5 fL 10/13/2024 6:22 AM EDT [facility] Whole Blood 10/13/2024 5:35 AM EDT 10/13/2024 5:53 AM EDT us Eileen Schroeder MD, PhD LAB BLOOD ORDERABLES Final Result [facility] [address] [place], [place] [address] * (ABNORMAL) Ammonia (10/13/2024 5:35 AM EDT) Ammonia 203(HH) 27 - 90 ug/dL 10/13/2024 7:16 AM EDT [facility] Comment: HEMOLYSIS EVIDENT. RESULTS MAY BE INFLUENCED. Critical Result [id number] Called to and read back by: KEY MELO RN at: 10/13/2024 07:15:55 by:NISREEN Plasma 10/13/2024 5:35 AM EDT 10/13/2024 6:19 AM EDT us Ellis Mays DO LAB BLOOD ORDERABLES Final Resul t [facility] [address] [facility]. [address] * CARISA Rhythm Strip - Scan (10/12/2024 10:30 PM EDT) us Scanning [employer] SCAN DOCS - NO RESULTS Final Res ult * (ABNORMAL) Protime-INR (10/12/2024 5:44 AM EDT) Protime 25.7(H) 12.1 - 15.1 seconds 10/12/2024 6:12 AM EDT [facility] INR 2.3(H) 0.9 - 1.1 10/12/2024 6:12 AM EDT [facility] Comment: RECOMMENDED THERAPEUTIC RANGES USING INR : Stable oral anticoagulant therapy: 2.0 - 3.0 Mechanical prosthetic heart valve: 2.5 - 3.5 Recurrent acute myocardial infarction: 2.5 - 3.5 Plasma 10/12/2024 5:44 AM EDT 10/12/2024 5:58 AM EDT us Eileen Schroeder MD, PhD LAB BLOOD ORDERABLES Final Result Performing Organization Address [facility]/ZIP Co de Phone Number [facility] [address] * (ABNORMAL) Hepatic Function Panel (10/12/2024 5:44 AM EDT) Total Bilirubin 6.5(H) 0.0 - 1.5 mg/dL 10/12/2024 6:29 AM EDT [facility] Bilirubin, Direct 3.64(H) 0.00 - 0.40 mg/dL 10/12/2024 6:29 AM EDT [facility] AST 40(H) 13 - 39 U/L 10/12/2024 6:29 AM EDT [facility] ALT 19 7 - 52 U/L 10/12/2024 6:29 AM EDT [facility] Alkaline Phosphatase 99 36 - 125 U/L 10/12/2024 6:29 AM EDT [facility] Total Protein 4.2(L) 6.4 - 8.9 g/dL 10/12/2024 6:29 AM EDT [facility] Albumin 3.1(L) 3.5 - 5.7 g/dL 10/12/2024 6:29 AM EDT [facility] Bilirubin, Indirect 2.86(H) 0.00 - 1.10 mg/dL 10/12/2024 6:29 AM EDT [facility] Plasma 10/12/2024 5:44 AM EDT 10/12/2024 5:58 AM EDT Eileen Schroeder MD, PhD LAB BLOOD ORDERABLES Final Result Performing Organization Address [facility]/ZIP Co de Phone Number [facility] [address] [place] [address] * Magnesium (10/12/2024 5:44 AM EDT) Magnesium 1.9 1.5 - 2.5 mg/dL 10/12/2024 6:29 AM EDT [facility] Plasma 10/12/2024 5:44 AM EDT 10/12/2024 5:58 AM EDT Eileen Schroeder MD, PhD LAB BLOOD ORDERABLES Final Result Performing Organization Address [facility] Co de Phone Number [facility] [address] * (ABNORMAL) Renal Function Panel w/EGFR (10/12/2024 5:44 AM EDT) Sodium 135 133 - 146 mmol/L 10/12/2024 6:29 AM EDT [facility] Potassium 3.7 3.5 - 5.3 mmol/L 10/12/2024 6:29 AM EDT [facility] Chloride 109 98 - 110 mmol/L 10/12/2024 6:29 AM EDT [facility] CO2 17(L) 21 - 33 mmol/L 10/12/2024 6:29 AM EDT [facility] Anion Gap 9 3 - 16 mmol/L 10/12/2024 6:29 AM EDT [facility] BUN 52(H) 7 - 25 mg/dL 10/12/2024 6:29 AM T [facility] Creatinine 2.94(H) 0.60 - 1.30 mg/dL 10/12/2024 6:29 AM EDT [facility] Glucose 121(H) 70 - 100 mg/dL 10/12/2024 6:29 AM EDT [facility] Calcium 8.5(L) 8.6 - 10.3 mg/dL 10/12/2024 6:29 AM EDT [facility] Phosphorus 4.6 2.1 - 4.7 mg/dL 10/12/2024 6:29 AM EDT [facility] Albumin 3.1(L) 3.5 - 5.7 g/dL 10/12/2024 6:29 [facility] Osmolality, Calculated 295 278 - 305 mOsm/kg 10/12/2024 6:29 AM [facility] EGFR 27 10/12/2024 6:29 AM [facility] Comment:As of 2021, the estimated [...] PhD LAB BLOOD ORDERABLES Final Result [facility] [address] [place], [place] [address] * (ABNORMAL) CBC (10/12/2024 5:44 AM EDT) WBC 3.3(L) 3.8 - 10.8 10E3/uL 10/12/2024 7:06 AM EDT [facility] RBC 1.95(L) 4.20 - 5.80 10E6/uL 10/12/2024 7:06 AM EDT [facility] Hemoglobin 7.2(L) 13.2 - 17.1 g/dL 10/12/2024 7:06 AM EDT [facility] Hematocrit 19.7(L) 38.5 - 50.0 % 10/12/2024 7:06 AM EDT [facility] MCV 101.2(H) 80.0 - 100.0 fL 10/12/2024 7:06 AM EDT [facility] MCH 37.0(H) 27.0 - 33.0 pg 10/12/2024 7:06 AM EDT [facility] MCHC 36.5(H) 32.0 - 36.0 g/dL 10/12/2024 7:06 AM EDT [facility] RDW 17.6(H) 11.0 - 15.0 % 10/12/2024 7:06 AM EDT [facility] Platelets 30(L) 140 - 400 10E3/uL 10/12/2024 7:06 AM EDT [facility] Comment: Specimen checked for clots. None detected. Slide Reviewed for PLT Clumps. None Seen. Platelet Estimate Decreased 10/12/2024 7:06 AM EDT [facility] MPV 8.3 7.5 - 11.5 fL 10/12/2024 7:06 AM EDT [facility] Whole Blood 10/12/2024 5:44 AM EDT 10/12/2024 5:58 AM EDT Narrative [facility] - 10/12/2024 7:06 AM EDT Peripheral blood smear was scanned per review criteria approved by the laboratory medical advisor. us Eileen Schroeder MD, PhD LAB BLOOD ORDERABLES Final Result [facility] [address] [facility]. [address] * CARISA Rhythm Strip - Scan (10/11/2024 10:04 PM EDT) us Scanning [facility] SCAN DOCS - NO RESULTS Final Res ult * (ABNORMAL) Protime-INR (10/11/2024 3:02 AM EDT) Protime 26.8(H) 12.1 - 15.1 seconds 10/11/2024 3:30 AM EDT [facility] INR 2.4(H) 0.9 - 1.1 10/11/2024 3:30 AM EDT [facility] Comment: RECOMMENDED THERAPEUTIC RANGES USING INR : Stable oral anticoagulant therapy: 2.0 - 3.0 Mechanical prosthetic heart valve: 2.5 - 3.5 Recurrent acute myocardial infarction: 2.5 - 3.5 Plasma 10/11/2024 3:02 AM EDT 10/11/2024 3:08 AM EDT us Eileen Schroeder MD, PhD LAB BLOOD ORDERABLES Final Result Performing Organization Address City/[facility]/ZIP Co de Phone Number [facility] [address] [facility]. [address] * (ABNORMAL) Hepatic Function Panel (10/11/2024 3:02 AM EDT) Total Bilirubin 7.3(H) 0.0 - 1.5 mg/dL 10/11/2024 3:38 AM EDT [facility] Bilirubin, Direct 3.85(H) 0.00 - 0.40 mg/dL 10/11/2024 3:38 AM EDT [facility] AST 39 13 - 39 U/L 10/11/2024 3:38 AM EDT [facility] ALT 20 7 - 52 U/L 10/11/2024 3:38 AM EDT [facility] Alkaline Phosphatase 88 36 - 125 U/L 10/11/2024 3:38 AM EDT [facility] Total Protein 4.5(L) 6.4 - 8.9 g/dL 10/11/2024 3:38 AM EDT [facility] Albumin 3.3(L) 3.5 - 5.7 g/dL 10/11/2024 3:38 AM EDT [facility] Bilirubin, Indirect 3.45(H) 0.00 - 1.10 mg/dL 10/11/2024 3:38 AM EDT [facility] Plasma 10/11/2024 3:02 AM EDT 10/11/2024 3:08 AM EDT us Eileen Schroeder MD, PhD LAB BLOOD ORDERABLES Final Result Performing Organization Address [facility]/ZIP Co de Phone Number [facility] [address] * Magnesium (10/11/2024 3:02 AM EDT) Magnesium 2.0 1.5 - 2.5 mg/dL 10/11/2024 3:38 AM EDT [facility] Plasma 10/11/2024 3:02 AM EDT 10/11/2024 3:08 AM EDT Eileen Schroeder MD, PhD LAB BLOOD ORDERABLES Final Result [facility] [address] * (ABNORMAL) Renal Function Panel w/EGFR (10/11/2024 3:02 AM EDT) Sodium 134 133 - 146 mmol/L 10/11/2024 3:38 AM EDT [facility] Potassium 3.6 3.5 - 5.3 mmol/L 10/11/2024 3:38 AM EDT [facility] Chloride 108 98 - 110 mmol/L 10/11/2024 3:38 AM EDT [facility] CO2 16(L) 21 - 33 mmol/L 10/11/2024 3:38 AM EDT [facility] Anion Gap 10 3 - 16 mmol/L 10/11/2024 3:38 AM EDT [facility] BUN 49(H) 7 - 25 mg/dL 10/11/2024 3:38 AM EDT [facility] Creatinine 2.77(H) 0.60 - 1.30 mg/dL 10/11/2024 3:38 AM EDT [facility] Glucose 112(H) 70 - 100 mg/dL 10/11/2024 3:38 AM EDT [facility] Calcium 8.9 8.6 - 10.3 mg/dL 10/11/2024 3:38 AM EDT [facility] Phosphorus 3.5 2.1 - 4.7 mg/dL 10/11/2024 3:38 AM EDT [facility] Albumin 3.3(L) 3.5 - 5.7 g/dL 10/11/2024 3:38 AM EDT [facility] Osmolality, Calculated 292 278 - 305 mOsm/kg 10/11/2024 3:38 AM EDT [facility] EGFR 29 10/11/2024 3:38 AM EDT [facility] Comment:As of 2021, the estimated GFR [...] PhD LAB BLOOD ORDERABLES Final Result [facility] [address] [place] [address], [facility] * (ABNORMAL) CBC (10/11/2024 3:02 AM EDT) WBC 4.0 3.8 - 10.8 10E3/uL 10/11/2024 3:55 AM EDT [facility] RBC 2.11(L) 4.20 - 5.80 10E6/uL 10/11/2024 3:55 AM EDT [facility] Hemoglobin 7.7(L) 13.2 - 17.1 g/dL 10/11/2024 3:55 AM EDT [facility] Hematocrit 21.2(L) 38.5 - 50.0 % 10/11/2024 3:55 AM EDT [facility] MCV 100.5(H) 80.0 - 100.0 fL 10/11/2024 3:55 AM EDT [facility] MCH 36.4(H) 27.0 - 33.0 pg 10/11/2024 3:55 AM EDT [facility] MCHC 36.2(H) 32.0 - 36.0 g/dL 10/11/2024 3:55 AM EDT [facility] RDW 17.9(H) 11.0 - 15.0 % 10/11/2024 3:55 AM EDT [facility] Platelets 32(L) 140 - 400 10E3/uL 10/11/2024 3:55 AM EDT [facility] Comment: Specimen checked for clots. None detected. Slide Reviewed for PLT Clumps. None Seen. Platelet Estimate Decreased 10/11/2024 3:55 AM EDT [facility] MPV 8.1 7.5 - 11.5 fL 10/11/2024 3:55 AM EDT [facility] Whole Blood 10/11/2024 3:02 AM EDT 10/11/2024 3:08 AM EDT Narrative [facility] - 10/11/2024 3:55 AM EDT Peripheral blood smear was scanned per review criteria approved by the laboratory medical advisor. us Eileen Schroeder MD, PhD LAB BLOOD ORDERABLES Final Result [facility] [address] [facility]. [address] * Vancomycin, random (10/11/2024 3:02 AM EDT) Vancomycin Random 13.4 ug/mL 10/11/2024 3:37 AM EDT [facility] Comment:Reference range not established for this test. Plasma 10/11/2024 3:02 AM EDT 10/11/2024 3:08 AM EDT us Jodi FreireD LAB BLOOD ORDERABLES Final Result Performing Organization Address [facility] Co de Phone Number [facility] [address] * IR Paracentesis incl imaging guide (10/10/2024 3:13 PM EDT) Anatomical Region Laterality Modality Abdomen, Pelvis X-Ray Angiograph y 10/10/2024 1:4 2 PM EDT Impressions 10/10/2024 3:31 PM EDT [...] diagnostic and therapeutic paracentesis. Bakari Wahl CNP, Front End Specialist Procedure and Findings: The procedure was [...] Using ultrasound guidance, a 10 cm, 5-F [employer] catheter was placed into the right [...] for diagnostic andtherapeutic paracentesis. Bakari Wahl CNP, Front End Specialist Procedure and Findings: The procedure was [...] scan (10/10/2024 3:08 PM EDT) us Scanning [facility] SCAN DOCS - NO RESULTS Final Res ult * (ABNORMAL) Body fluid cell count (10/10/2024 1:51 PM EDT) Color, Fluid Yellow(A) Colorless, Pale Yellow 10/10/2024 5:29 PM EDT [facility] Clarity, Fluid Clear 10/10/2024 5:29 PM EDT [facility] Neutrophil %, Fluid 9 % 10/10/2024 5:29 PM EDT [facility] Lymphocytes %, Fluid 13 % 10/10/2024 5:29 PM EDT [facility] Mesothelial %, Fluid 6 % 10/10/2024 5:29 PM EDT [facility] Macrophage %, Fluid 72 % 10/10/2024 5:29 PM EDT [facility] RBC, Fluid 2,662 /uL 10/10/2024 4:41 PM EDT [facility] Total Nucleated Cells, Fluid 89 /uL 10/10/2024 4:41 PM EDT [facility] Comment:Total Nucleated Cell s represent WBCs and other nucleated cells in the fluid such as lining cells. Ascitic Fluid ABDOMEN / Unknown 1:51 PM EDT 10/10/2024 3:56 PM EDT Gerri Peterson MD BODY FLUIDS AND STOOLS ORDERABL ES Final Result Performing Organization Address [facility] de Phone Number [facility] [address] * Body Fluid Culture plus Stain (10/10/2024 1:51 PM EDT) Gram Stain Result Cytospin Results: [facility] Gram Stain Result Polymorphonuclear Leukocytes Seen; [facility] Gram Stain Result No Organisms Seen; [facility] Culture Result No Growth After 5 Days [facility] Fluid ABDOMEN / Unknown 10/10/2024 1:51 PM EDT 10/10/2024 3:56 PM EDT Gerri Peterson MD MICROBIOLOGY - GENERAL ORDERABL ES Final Result Performing Organization Address [facility] de Phone Number [facility] [address] * UPPER GI ENDOSCOPY (10/10/2024 11:48 AM EDT) 10/10/2024 11:4 8 AM EDT Narrative [facility] - 10/10/2024 12:34 PM EDT [id number] Procedure Date: 10/10/2024 11:48 AM Patient Name: Julien Gilbert Date of : 1985 Admit Type: Inpatient Age: 39 Gender: Male Note Status: Finalized Attending MD: Lino Soto MD, [id number] Procedure: Upper GI endoscopy Indications: Gastroesopahgeal variceal [...] verified by the physician, the nurse, the strategic intelligence officer and the mold repair technician in the pre-procedure area in [...] to hypotension Procedure Code(s): --- Professional --- 63346, GC, Esophagogastroduodenoscopy, flexible, transoral; diagnostic, including collection of specimen(s) by brushing or washing, when performed (separate procedure) Diagnosis Code(s): --- Professional --- I85.00, Esophageal 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 All rights reserved. The codes documented in this report are preliminary and upon environment coordinator review may be revised to meet current [...] In: 12:10:16 PM Scope Out: 12:17:[address] [place] [address], [address] us Provider Not In System PROCEDURE/MINOR SURGICAL [...] BLOOD ORDERABLES Final Result Performing Organization Address City/[facility] Co de Phone Number [facility] [address] * (ABNORMAL) Hepatic Function Panel (10/10/2024 5:23 AM EDT) Total Bilirubin 8.6(H) 0.0 - 1.5 mg/dL 10/10/2024 6:21 AM EDT [facility] Bilirubin, Direct 4.65(H) 0.00 - 0.40 mg/dL 10/10/2024 6:21 AM EDT [facility] AST 40(H) 13 - 39 U/L 10/10/2024 6:21 AM EDT [facility] ALT 22 7 - 52 U/L 10/10/2024 6:21 AM EDT [facility] Alkaline Phosphatase 118 36 - 125 U/L 10/10/2024 6:21 AM EDT [facility] Total Protein 4.6(L) 6.4 - 8.9 g/dL 10/10/2024 6:21 AM EDT [facility] Albumin 3.3(L) 3.5 - 5.7 g/dL 10/10/2024 6:21 AM EDT [facility] Bilirubin, Indirect 3.95(H) 0.00 - 1.10 mg/dL 10/10/2024 6:21 AM EDT [facility] Plasma 10/10/2024 5:23 AM EDT 10/10/2024 5:50 AM EDT Eileen Schroeder MD, PhD LAB BLOOD ORDERABLES Final Result [facility] [address] * Magnesium (10/10/2024 5:23 AM EDT) Magnesium 1.9 1.5 - 2.5 mg/dL 10/10/2024 6:21 AM EDT [facility] Plasma 10/10/2024 5:23 AM EDT 10/10/2024 5:50 AM EDT Eileen Schroeder MD, PhD LAB BLOOD ORDERABLES Final Result Performing Organization Address [facility] Co de Phone Number [facility] [address] * (ABNORMAL) Renal Function Panel w/EGFR (10/10/2024 5:23 AM EDT) Sodium 135 133 - 146 mmol/L 10/10/2024 6:21 AM EDT [facility] Potassium 3.6 3.5 - 5.3 mmol/L 10/10/2024 6:21 AM EDT [facility] Chloride 108 98 - 110 mmol/L 10/10/2024 6:21 AM EDT [facility] CO2 17(L) 21 - 33 mmol/L 10/10/2024 6:21 AM EDT [facility] Anion Gap 10 3 - 16 mmol/L 10/10/2024 6:21 AM EDT [facility] BUN 53(H) 7 - 25 mg/dL 10/10/2024 6:21 AM EDT [facility] Creatinine 2.85(H) 0.60 - 1.30 mg/dL 10/10/2024 6:21 AM EDT [facility] Glucose 113(H) 70 - 100 mg/dL 10/10/2024 6:21 AM EDT [facility] Calcium 9.0 8.6 - 10.3 mg/dL 10/10/2024 6:21 AM EDT [facility] Phosphorus 3.3 2.1 - 4.7 mg/dL 10/10/2024 6:21 AM EDT [facility] Albumin 3.3(L) 3.5 - 5.7 g/dL 10/10/2024 6:21 AM EDT [facility] Osmolality, Calculated 295 278 - 305 mOsm/kg 10/10/2024 6:21 AM EDT [facility] EGFR 28 10/10/2024 6:21 AM EDT [facility] Comment:As of 2021, the estimated GFR [...] PhD LAB BLOOD ORDERABLES Final Result [facility] [address] [place] [address], [facility] * (ABNORMAL) CBC (10/10/2024 5:23 AM EDT) WBC 5.1 3.8 - 10.8 10E3/uL 10/10/2024 6:14 AM EDT [facility] RBC 2.04(L) 4.20 - 5.80 10E6/uL 10/10/2024 6:14 AM EDT [facility] Hemoglobin 7.3(L) 13.2 - 17.1 g/dL 10/10/2024 6:14 AM EDT [facility] Hematocrit 20.6(L) 38.5 - 50.0 % 10/10/2024 6:14 AM EDT [facility] MCV 101.2(H) 80.0 - 100.0 fL 10/10/2024 6:14 AM EDT [facility] MCH 36.0(H) 27.0 - 33.0 pg 10/10/2024 6:14 AM EDT [facility] MCHC 35.5 32.0 - 36.0 g/dL 10/10/2024 6:14 AM EDT [facility] RDW 17.6(H) 11.0 - 15.0 % 10/10/2024 6:14 AM EDT [facility] Platelets 39(L) 140 - 400 10E3/uL 10/10/2024 6:14 AM EDT [facility] Comment: CNV Specimen checked for clots. None detected. MPV 9.8 7.5 - 11.5 fL 10/10/2024 6:14 AM EDT [facility] Whole Blood 10/10/2024 5:23 AM EDT 10/10/2024 5:51 AM EDT us Eileen Schroeder MD, PhD LAB BLOOD ORDERABLES Final Result Performing Organization Address [facility] de Phone Number [facility] [address] * Vancomycin, random (10/10/2024 5:23 AM EDT) Vancomycin Random 16.4 ug/mL 10/10/2024 6:22 AM EDT [facility] Comment:Reference range not established for this test. Plasma 10/10/2024 5:23 AM EDT 10/10/2024 5:51 AM EDT us Jodi FreireD LAB BLOOD ORDERABLES Final Result [facility] [address] [facility] [place] [address], [facility] * ECHO STRESS W/ CONTRAST (10/09/2024 4:37 PM EDT) Anatomical Region Laterality Modality Chest Ultrasound 10/09/2024 2:40 PM EDT Narrative 10/09/2024 6:45 PM EDT * [facility]* [address] [place] [address] Stress Echocardiogram Patient: Julien Gilbert Room: 8142 Height: 76in MR Number: [id number] : 1985 Weight: 262lb Account: [id number] Gender: M BP: 125 / 77 Study Date: 10/09/2024 Age: 39 BSA: 2.48m^2 Referring physician: Gerri Peterson Interpreting physician: Tonya Henriquez MD FELLOW Lisa Jha MD PERFORMING Tonya Henriquez MD 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 The infusion was terminated [...] at baseline or with provocation, shows no hsmjd-th-basv atrial level shunt. - Pulmonary arteries: Systolic [...] at baseline or with provocation, shows no uitym-sa-esmx atrial level shunt. Pulmonary artery: - Systolic [...] at baseline or with provocation, shows no qnxre-ed-iblj atrial level shunt. Pericardium: - There is [...] peak heart rate and blood pressure was 95650id Hg/min. 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 PMH: EtOH Use Disorder. Risk factors: Hypertension. Dyslipidemia. Study data: Height: 76in. 193cm. Weight: 262lb. 118.8kg. The previousstudy was not available, so comparison was made to the report of 07/15/2024. Study status: Routine. Procedure: [facility]. Intravenous [...] was augmented by the addition of hand junior media buyer and leg lifts. The infusion was terminated [...] at baseline or with provocation, shows no klusa-ud-bany atrial level shunt. - Pulmonary arteries: Systolic [...] study at baseline or with provocation, showsno khxkk-vg-fjhd atrial level shunt. Pulmonary artery: - Systolic [...] at baseline or with provocation, shows no xjsmx-cf-vdfs atrial level shunt. Pericardium: - There is [...] heart rate). The maximal predicted heart rate [id number]. The target heart rate was 152bpm. The target heart rate was achieved.The heart rate response to stress is normal. There is a normal resting blood pressure with an appropriate response to stress. The rate-pressureproduct for the peak heart rate and blood pressure was 64002od Hg/min. Stress testing did not produce any [...] Reviewed and confirmed by Tonya Henriquez MD [id number] us Gerri Peterson MD CV ECHO ORDERABLES Final Result * (ABNORMAL) Renal Function Panel w/EGFR, STAT (10/09/2024 1:05 PM EDT) Sodium 134 133 - 146 mmol/L 10/09/2024 2:10 PM EDT [facility] Potassium 3.7 3.5 - 5.3 mmol/L 10/09/2024 2:10 PM EDT [facility] Chloride 105 98 - 110 mmol/L 10/09/2024 2:10 PM EDT [facility] CO2 17(L) 21 - 33 mmol/L 10/09/2024 2:10 PM EDT [facility] Anion Gap 12 3 - 16 mmol/L 10/09/2024 2:10 PM EDT [facility] BUN 53(H) 7 - 25 mg/dL 10/09/2024 2:10 PM EDT [facility] Creatinine 2.89(H) 0.60 - 1.30 mg/dL 10/09/2024 2:10 PM EDT [facility] Glucose 108(H) 70 - 100 mg/dL 10/09/2024 2:10 PM EDT [facility] Calcium 9.3 8.6 - 10.3 mg/dL 10/09/2024 2:10 PM EDT [facility] Phosphorus 3.4 2.1 - 4.7 mg/dL 10/09/2024 2:10 PM EDT [facility] Albumin 3.6 3.5 - 5.7 g/dL [...] LAB BLOOD ORDERABLES Final Result [facility] [address] [id number], [facility] * (ABNORMAL) Renal Function Panel w/EGFR, STAT (10/09/2024 8:14 AM EDT) Sodium 134 133 - 146 mmol/L 10/09/2024 8:47 AM EDT [facility] Potassium 3.4(L) 3.5 - 5.3 mmol/L 10/09/2024 8:47 AM EDT [facility] Chloride 107 98 - 110 mmol/L 10/09/2024 8:47 AM EDT [facility] CO2 17(L) 21 - 33 mmol/L 10/09/2024 8:47 AM EDT [facility] Anion Gap 10 3 - 16 mmol/L 10/09/2024 8:47 AM EDT [facility] BUN 54(H) 7 - 25 mg/dL 10/09/2024 8:47 AM EDT [facility] Creatinine 3.04(H) 0.60 - 1.30 mg/dL 10/09/2024 8:47 AM EDT [facility] Glucose 124(H) 70 - 100 mg/dL 10/09/2024 8:47 AM EDT [facility] Calcium 9.0 8.6 - 10.3 mg/dL 10/09/2024 8:47 AM EDT [facility] Phosphorus 3.5 2.1 - 4.7 mg/dL 10/09/2024 8:47 AM EDT [facility] Albumin 3.4(L) 3.5 - 5.7 g/dL 10/09/2024 8:47 AM EDT [facility] Osmolality, Calculated 294 278 - 305 mOsm/kg 10/09/2024 8:47 AM EDT [facility] EGFR 26 10/09/2024 8:47 AM EDT [facility] Comment:As of 2021, the estimated GFR [...] LAB BLOOD ORDERABLES Final Resu lt [facility] [address] [id number], [facility] * Prepare RBC, leukoreduced, 1 Units (10/09/2024 6:16 AM EDT) Product Code [id number] [facility] Unit Number [id number] [facility] Dispense Status Presumed Transfused_PT [facility]LL Blood Expiration Date [id number] [facility] Coding System [id number] [facility] Blood Bank Product Eileen Schroeder MD, PhD BLOOD BANK PRODUCT OR DERABLES Final Result [facility] * (ABNORMAL) Protime-INR (10/09/2024 4:59 AM EDT) Protime 26.5(H) 12.1 - 15.1 seconds 10/09/2024 6:30 AM EDT [facility] INR 2.4(H) 0.9 - 1.1 10/09/2024 6:30 AM EDT [facility] Comment: RECOMMENDED THERAPEUTIC RANGES USING INR : Stable oral anticoagulant therapy: 2.0 - 3.0 Mechanical prosthetic heart valve: 2.5 - 3.5 Recurrent acute myocardial infarction: 2.5 - 3.5 Plasma 10/09/2024 4:59 AM EDT 10/09/2024 5:55 AM EDT Eileen Schroeder MD, PhD LAB BLOOD ORDERABLES Final Result Performing Organization Address [facility] Co de Phone Number [facility] [address] * (ABNORMAL) Hepatic Function Panel (10/09/2024 4:59 AM EDT) Total Bilirubin 9.0(H) 0.0 - 1.5 mg/dL 10/09/2024 6:42 AM EDT [facility] Bilirubin, Direct 4.60(H) 0.00 - 0.40 mg/dL 10/09/2024 6:42 AM EDT [facility] AST 38 13 - 39 U/L 10/09/2024 6:42 AM EDT [facility] ALT 18 7 - 52 U/L 10/09/2024 6:42 AM EDT [facility] Alkaline Phosphatase 122 36 - 125 U/L 10/09/2024 6:42 AM EDT [facility] Total Protein 4.8(L) 6.4 - 8.9 g/dL 10/09/2024 6:42 AM EDT [facility] Albumin 3.4(L) 3.5 - 5.7 g/dL 10/09/2024 6:42 AM EDT [facility] Bilirubin, Indirect 4.40(H) 0.00 - 1.10 mg/dL 10/09/2024 6:42 AM EDT [facility] Plasma 10/09/2024 4:59 AM EDT 10/09/2024 5:57 AM EDT Eileen Schroeder MD, PhD LAB BLOOD ORDERABLES Final Result Performing Organization Address [facility]/ZIP Co de Phone Number [facility] [address] * Magnesium (10/09/2024 4:59 AM EDT) Magnesium 1.8 1.5 - 2.5 mg/dL 10/09/2024 6:42 AM EDT [facility] Plasma 10/09/2024 4:59 AM EDT 10/09/2024 5:57 AM EDT Eileen Schroeder MD, PhD LAB BLOOD ORDERABLES Final Result Performing Organization Address City/[facility]/ZIP Co de Phone Number [facility] [address] * (ABNORMAL) Renal Function Panel w/EGFR (10/09/2024 4:59 AM EDT) Sodium 134 133 - 146 mmol/L 10/09/2024 6:42 AM EDT [facility] Potassium 3.3(L) 3.5 - 5.3 mmol/L 10/09/2024 6:42 AM EDT [facility] Chloride 107 98 - 110 mmol/L 10/09/2024 6:42 AM EDT [facility] CO2 16(L) 21 - 33 mmol/L 10/09/2024 6:42 AM EDT [facility] Anion Gap 11 3 - 16 mmol/L 10/09/2024 6:42 AM EDT [facility] BUN 56(H) 7 - 25 mg/dL 10/09/2024 6:42 AM EDT [facility] Creatinine 2.98(H) 0.60 - 1.30 mg/dL 10/09/2024 6:42 AM EDT [facility] Glucose 112(H) 70 - 100 mg/dL 10/09/2024 6:42 AM EDT [facility] Calcium 9.0 8.6 - 10.3 mg/dL 10/09/2024 6:42 AM EDT [facility] Phosphorus 3.5 2.1 - 4.7 mg/dL 10/09/2024 6:42 AM EDT [facility] Albumin 3.4(L) 3.5 - 5.7 g/dL 10/09/2024 6:42 AM T [facility] Osmolality, Calculated 294 278 - 305 mOsm/kg 10/09/2024 6:42 AM EDT [facility] EGFR 26 10/09/2024 6:42 AM T [facility] Comment:As of 2021, the estimated GFR [...] PhD LAB BLOOD ORDERABLES Final Result [facility] [address] * (ABNORMAL) CBC (10/09/2024 4:59 AM EDT) WBC 4.6 3.8 - 10.8 10E3/uL 10/09/2024 6:21 AM EDT [facility] RBC 2.17(L) 4.20 - 5.80 10E6/uL 10/09/2024 6:21 AM EDT [facility] Hemoglobin 8.0(L) 13.2 - 17.1 g/dL 10/09/2024 6:21 AM EDT [facility] Hematocrit 21.8(L) 38.5 - 50.0 % 10/09/2024 6:21 AM EDT [facility] MCV 100.5(H) 80.0 - 100.0 fL 10/09/2024 6:21 AM EDT [facility] MCH 36.7(H) 27.0 - 33.0 pg 10/09/2024 6:21 AM EDT [facility] MCHC 36.5(H) 32.0 - 36.0 g/dL 10/09/2024 6:21 AM EDT [facility] RDW 18.1(H) 11.0 - 15.0 % 10/09/2024 6:21 AM EDT [facility] Platelets 36(L) 140 - 400 10E3/uL 10/09/2024 6:21 AM EDT [facility] Comment:Specimen checked for clots. None detected. MPV 8.3 7.5 - 11.5 fL 10/09/2024 6:21 AM EDT [facility] Whole Blood 10/09/2024 4:59 AM EDT 10/09/2024 5:56 AM EDT us Eileen Schroeder MD, PhD LAB BLOOD ORDERABLES Final Result [facility] [address] * Renal Tx Recipient (10/09/2024 4:59 AM EDT) [facility] Renal Transplant Recipient The request and specimen(s) for this test have been received and transported to the [facility] [place] at [address] [place] [address]. The [facility] will report results directly to the client. 10/09/2024 7:26 AM EDT [facility] Blood 10/09/2024 4:59 AM EDT 10/09/2024 7:26 AM EDT us Aaron Gonzalez MD LAB BLOOD ORDERABLES Final Resu lt [facility] [address] * Vancomycin, random (10/09/2024 4:59 AM EDT) [facility] Vancomycin Random 11.0 ug/mL 10/09/2024 6:33 AM EDT [facility] Comment:Reference range not established for this test. Plasma 10/09/2024 4:59 AM EDT 10/09/2024 5:56 AM EDT us Jodi Ortiz PharmD LAB BLOOD ORDERABLES Final Result [facility] [address] * (ABNORMAL) CBC (10/08/2024 5:52 PM EDT) [facility] WBC 5.6 3.8 - 10.8 10E3/uL 10/08/2024 6:52 PM EDT [facility] RBC 2.38(L) 4.20 - 5.80 10E6/uL 10/08/2024 6:52 PM EDT [facility] Hemoglobin 8.3(L) 13.2 - 17.1 g/dL 10/08/2024 6:52 PM EDT [facility] Hematocrit 24.6(L) 38.5 - 50.0 % 10/08/2024 6:52 PM EDT [facility] MCV 103.2(H) 80.0 - 100.0 fL 10/08/2024 6:52 PM EDT [facility] MCH 34.7(H) 27.0 - 33.0 pg 10/08/2024 6:52 PM EDT [facility] MCHC 33.6 32.0 - 36.0 g/dL 10/08/2024 6:52 PM EDT [facility] RDW 18.5(H) 11.0 - 15.0 % 10/08/2024 6:52 PM EDT [facility] Platelets 39(L) 140 - 400 10E3/uL 10/08/2024 6:52 PM EDT [facility] Comment:CNV MPV 8.1 7.5 - 11.5 fL 10/08/2024 6:52 PM EDT [facility] Whole Blood 10/08/2024 5:52 PM EDT 10/08/2024 6:45 PM EDT us Eileen Schroeder MD, PhD LAB BLOOD ORDERABLES Final Result Performing Organization Address [facility] Co de Phone Number [facility] [address] * Transfuse RBC Has consent been obtained? Yes; Transfusion Rate: Per dept routine (10/08/2024 1:17 PM EDT) us Eileen Schroeder MD, PhD NURSING TREATMENT ORD ERABLES - BLOOD ADMIN Final Result Performing Organization Address City/[facility] Co de Phone Number EXTERNAL * Transfuse RBC Has consent been obtained? Yes; Transfusion Rate: Per dept routine, 1 Units (10/08/2024 1:17 PM EDT) us Eileen Schroeder MD, PhD NURSING TREATMENT ORD ERABLES - BLOOD ADMIN Final Result Performing Organization Address City/[facility] Co de Phone Number EXTERNAL * (ABNORMAL) MMR(IgG) Panel (Measles, Mumps, Rubella) (10/08/2024 10:25 AM EDT) Mumps IgG Positive 10/08/2024 11:39 AM EDT [facility] MUMPS IGG NUM 99.00(H) 0.0 - 8.9 U/mL 10/08/2024 11:39 AM EDT [facility] Rubella IgG Scr Positive 10/08/2024 11:40 AM EDT [facility] RUB NUM 4.15(H) 0.00 - 0.89 INDEX 10/08/2024 11:40 AM EDT [facility] Rubeola Ab, IgG Positive 10/08/2024 11:39 AM EDT [facility] RUB IGG NUM 273.00(H) 0.00 - 13.40 U/mL 10/08/2024 11:39 AM EDT [facility] Serum 10/08/2024 10:2 5 AM EDT 10/08/2024 10:49 AM EDT Narrative [facility] - 10/08/2024 11:40 AM EDT Presence [...] LAB BLOOD ORDERABLES Final Resu lt [facility] [address] [id number], [facility] * (ABNORMAL) Hemoglobin A1C (10/08/2024 10:25 AM EDT) Hemoglobin A1C 3.7(L) 4.0 - 5.6 % 10/09/2024 1:22 PM EDT [facility] Comment: Hemoglobin A1c Interpretation Guidelines: Normal: [...] ORDERABLES Final Resu lt Performing Organization Address City/[facility]/ZIP Co de Phone Number [facility] [address] * (ABNORMAL) Vitamin D 25 Hydroxy (10/08/2024 10:25 AM EDT) Vit D, 25-Hydroxy 7.1(L) 30.0 - 100.0 ng/mL 10/08/2024 11:36 AM EDT [facility] Comment: Vitamin D deficiency has been defined by the [employer] [employer] (IOM) and an Endocrine Society [...] LAB BLOOD ORDERABLES Final Resu lt [facility] [address] [facility]. [address] * Iron Studies (Iron + TIBC) (10/08/2024 10:25 AM EDT) Iron 81 50 - 212 ug/dL 10/08/2024 11:23 AM EDT [facility] % Iron Saturation SEE COMMENT 15.0 - 55.0 % 10/08/2024 11:23 AM EDT [facility] Comment:Unable to calculate result because contributing result outside reportable range.. TIBC SEE COMMENT 261 - 462 ug/dL 10/08/2024 11:23 AM EDT [facility] Comment:Unable to calculate result because contributing result outside reportable range.. Serum 10/08/2024 10:2 5 AM EDT 10/08/2024 10:49 AM EDT Result [facility] Gerri Peterson MD LAB BLOOD ORDERABLES Final Resu lt [facility] [address] [facility]. [address] * (ABNORMAL) Ferritin (10/08/2024 10:25 AM EDT) Ferritin 706.9(H) 23.9 - 336.2 ng/mL 10/08/2024 11:35 AM EDT [facility] Serum 10/08/2024 10:2 5 AM EDT 10/08/2024 10:49 AM EDT Result [facility] Gerri Peterson MD LAB BLOOD ORDERABLES Final Resu lt Performing Organization Address City/[facility]/ZIP Co de Phone Number [facility] [address] [facility]. [address] * QuantiFERON TB2 Ag (10/08/2024 10:25 AM EDT) QuantiFERON TB2 Ag Value 0.07 10/10/2024 10:41 AM EDT [facility] Plasma 10/08/2024 10:2 5 AM EDT 10/08/2024 11:05 AM EDT Gerri Peterson MD LAB BLOOD ORDERABLES Final Resu lt Performing Organization Address City/[facility]/ZIP Co de Phone Number [facility] [address] [facility]. [address] * QuantiFERON TB1 Ag (10/08/2024 10:25 AM EDT) QuantiFERON TB1 Ag Value 0.06 10/10/2024 10:41 AM EDT [facility] Plasma 10/08/2024 10:2 5 AM EDT 10/08/2024 11:05 AM EDT Gerri Peterson MD LAB BLOOD ORDERABLES Final Resu lt Performing Organization Address [facility]/ZIP Co de Phone Number [facility] [address] [facility]. [address] * QuantiFERON Nil (10/08/2024 10:25 AM EDT) QuantiFERON Nil 0.06 10:41 AM EDT [facility] Plasma 10/08/2024 10:2 5 AM EDT 10/08/2024 11:05 AM EDT Result [facility] Gerri Peterson MD LAB BLOOD ORDERABLES Final Resu lt Performing Organization Address [facility] de Phone Number [facility] [address] [facility]. [address] * QuantiFERON Mitogen (10/08/2024 10:25 AM EDT) QuantiFERON Interpretation Negative Negative 10/10/2024 10:41 AM EDT [facility] Comment:Negative result geovanny cates M. tuberculosis infection is NOT likely. Negative results do not preclude tuberculosis infection (especially in immunosuppressed patients). Negative results have a TB antigen minus Nil value less than 0.35 IU/mL. In cases with high suspicion of disease, retesting or additional testing with medical evaluation may be useful. QuantiFERON Mitogen 4.87 10/10 10:41 AM EDT [facility] Plasma 10/08/2024 10:2 5 AM EDT 10/08/2024 11:05 AM EDT Narrative [facility] - 10/10/2024 10:41 AM EDT The [...] in immunosuppressed states. Please see www.cdc.gov/tb. Result [facility] Gerri Peterson MD LAB BLOOD ORDERABLES Final Resu lt Performing Organization Address City/[facility] Co de Phone Number [facility] [address] [employer] * Reticulocyte Count, Auto (10/08/2024 7:41 AM EDT) Retic Ct Pct 1.35 0.50 - 2.00 % 10/08/2024 9:12 AM EDT [facility] Retic Ct Abs 26,190 25,000 - 90,000 /uL 10/08/2024 9:14 AM EDT [facility] Immature Retic Fract 0.37 0.09 - 0.56 10/08/2024 9:12 AM EDT [facility] Whole Blood 10/08/2024 7:41 AM EDT 10/08/2024 8:51 AM EDT Result [facility] Angie Blanchard MD LAB BLOOD ORDERABLES Final Res ult Performing Organization Address [facility] Co de Phone Number [facility] [address] [employer] * (ABNORMAL) Haptoglobin (10/08/2024 7:41 AM EDT) Haptoglobin <30(L) 44 - 215 mg/dL 10/08/2024 8:53 AM EDT [facility] Serum 10/08/2024 7:41 AM EDT 10/08/2024 7:51 AM EDT Eileen Schroeder MD, PhD LAB BLOOD ORDERABLES Final Result Performing Organization Address City/[facility] Co de Phone Number [facility] [address] [facility]. [address] * (ABNORMAL) CBC - Post Transfusion (10/08/2024 7:41 AM EDT) WBC 3.7(L) 3.8 - 10.8 10E3/uL 10/08/2024 8:34 AM EDT [facility] RBC 1.94(L) 4.20 - 5.80 10E6/uL 10/08/2024 8:34 AM EDT [facility] Hemoglobin 7.1(L) 13.2 - 17.1 g/dL 10/08/2024 8:34 AM EDT [facility] Hematocrit 20.0(L) 38.5 - 50.0 % 10/08/2024 8:34 AM EDT [facility] MCV 103.1(H) 80.0 - 100.0 fL 10/08/2024 8:34 AM EDT [facility] MCH 36.5(H) 27.0 - 33.0 pg 10/08/2024 8:34 AM EDT [facility] MCHC 35.4 32.0 - 36.0 g/dL 10/08/2024 8:34 AM EDT [facility] RDW 17.2(H) 11.0 - 15.0 % 10/08/2024 8:34 AM EDT [facility] Platelets 37(L) 140 - 400 10E3/uL 10/08/2024 8:34 AM EDT [facility] Comment: Specimen checked for clots. None detected. Slide Reviewed for PLT Clumps. None Seen. _Platelet Morphology Normal _Platelets Appear Decreased MPV 8.7 7.5 - 11.5 fL 10/08/2024 8:34 AM EDT [facility] Whole Blood 10/08/2024 7:41 AM EDT 10/08/2024 7:52 AM EDT Narrative [facility] - 10/08/2024 8:34 AM EDT Post-transfusion us Eileen Schroeder MD, PhD LAB BLOOD ORDERABLES Final Result [facility] [address] * Antibody Screen (10/08/2024 7:41 AM EDT) Antibody Screen Negative 10/08/2024 8:26 AM EDT [facility] Blood 10/08/2024 7:41 AM EDT 10/08/2024 7:57 AM EDT Narrative [facility] - 10/08/2024 8:32 AM EDT Testing performed by [facility] Transfusion Service Eileen Schroeder MD, PhD BLOOD BANK TEST ORDER PAL Final Result [facility] [address] [facility]. [address] * ABO/Rh (10/08/2024 7:41 AM EDT) ABO Grouping O 10/08/2024 8:14 AM EDT [facility] Rh Type Positive 10/08/2024 8:14 AM EDT [facility] Blood 10/08/2024 7:41 AM EDT 10/08/2024 7:57 AM EDT Eileen Schroeder MD, PhD BLOOD BANK TEST ORDER PAL Final Result [facility] [address] [facility]. [address] * (ABNORMAL) Lactate dehydrogenase (10/08/2024 5:36 AM EDT) LD 102(L) 110 - 270 U/L 10/08/2024 8:20 AM EDT [facility] Plasma 10/08/2024 5:36 AM EDT 10/08/2024 7:58 AM EDT Angie Blanchard MD LAB BLOOD ORDERABLES Final Res ult [facility] [address] * (ABNORMAL) Protime-INR (10/08/2024 5:36 AM [...] PhD LAB BLOOD ORDERABLES Final Result [facility] [address] [place] [address], [facility] * (ABNORMAL) Hepatic Function Panel (10/08/2024 5:36 AM EDT) Total Bilirubin 7.7(H) 0.0 - 1.5 mg/dL 10/08/2024 6:25 AM EDT [facility] Bilirubin, Direct 4.28(H) 0.00 - 0.40 mg/dL 10/08/2024 6:25 AM EDT [facility] AST 34 13 - 39 U/L 10/08/2024 6:25 AM EDT [facility] ALT 16 7 - 52 U/L 10/08/2024 6:25 AM EDT [facility] Alkaline Phosphatase 103 36 - 125 U/L 10/08/2024 6:25 AM EDT [facility] Total Protein 4.7(L) 6.4 - 8.9 g/dL 10/08/2024 6:25 AM EDT [facility] Albumin 3.5 3.5 - 5.7 g/dL 10/08/2024 6:25 AM EDT [facility] Bilirubin, Indirect 3.42(H) 0.00 - 1.10 mg/dL 10/08/2024 6:25 AM EDT [facility] Plasma 10/08/2024 5:36 AM EDT 10/08/2024 5:52 AM EDT Eileen Schroeder MD, PhD LAB BLOOD ORDERABLES Final Result Performing Organization Address City/[facility]/ZIP Co de Phone Number [facility] [address] * Magnesium (10/08/2024 5:36 AM EDT) Magnesium 1.9 1.5 - 2.5 mg/dL 10/08/2024 6:25 AM EDT [facility] Plasma 10/08/2024 5:36 AM EDT 10/08/2024 5:52 AM EDT Eileen Schroeder MD, PhD LAB BLOOD ORDERABLES Final Result Performing Organization Address [facility] de Phone Number [facility] [address] * (ABNORMAL) Renal Function Panel w/EGFR (10/08/2024 5:36 AM EDT) Sodium 135 133 - 146 mmol/L 10/08/2024 6:25 AM EDT [facility] Potassium 3.2(L) 3.5 - 5.3 mmol/L 10/08/2024 6:25 AM EDT [facility] Chloride 106 98 - 110 mmol/L 10/08/2024 6:25 AM EDT [facility] CO2 17(L) 21 - 33 mmol/L 10/08/2024 6:25 AM EDT [facility] Anion Gap 12 3 - 16 mmol/L 10/08/2024 6:25 AM EDT [facility] BUN 61(H) 7 - 25 mg/dL 10/08/2024 6:25 AM EDT [facility] Creatinine 3.10(H) 0.60 - 1.30 mg/dL 10/08/2024 6:25 AM EDT [facility] Glucose 106(H) 70 - 100 mg/dL 10/08/2024 6:25 AM EDT [facility] Calcium 9.0 8.6 - 10.3 mg/dL 10/08/2024 6:25 AM EDT [facility] Phosphorus 4.0 2.1 - 4.7 mg/dL 10/08/2024 6:25 AM EDT [facility] Albumin 3.5 3.5 - 5.7 g/dL 10/08/2024 6:25 AM EDT [facility] Osmolality, Calculated 298 278 - 305 mOsm/kg 10/08/2024 6:25 AM EDT [facility] EGFR 10/08/2024 6:25 AM EDT [facility] Comment:As of 2021, the estimated GFR [...] PhD LAB BLOOD ORDERABLES Final Result [facility] [address] [place] [address], [facility] * (ABNORMAL) CBC (10/08/2024 5:36 AM EDT) WBC 3.2(L) 3.8 - 10.8 10E3/uL 10/08/2024 6:41 AM EDT [facility] RBC 1.86(L) 4.20 - 5.80 10E6/uL 10/08/2024 6:41 AM EDT [facility] Hemoglobin 6.9(L) 13.2 - 17.1 g/dL 10/08/2024 6:41 AM EDT [facility] Hematocrit 18.9(L) 38.5 - 50.0 % 10/08/2024 6:41 AM EDT [facility] MCV 101.6(H) 80.0 - 100.0 fL 10/08/2024 6:41 AM EDT [facility] MCH 36.9(H) 27.0 - 33.0 pg 10/08/2024 6:41 AM EDT [facility] MCHC 36.3(H) 32.0 - 36.0 g/dL 10/08/2024 6:41 AM EDT [facility] RDW 17.0(H) 11.0 - 15.0 % 10/08/2024 6:41 AM EDT [facility] Platelets 34(L) 140 - 400 10E3/uL 10/08/2024 6:41 AM EDT [facility] Comment: Specimen checked for clots. None detected. Slide Reviewed for PLT Clumps. None Seen. Platelet Estimate Decreased 10/08/2024 6:41 AM EDT [facility] MPV 8.4 7.5 - 11.5 fL 10/08/2024 6:41 AM EDT [facility] Whole Blood 10/08/2024 5:3 6 AM EDT 10/08/2024 5:53 AM EDT Narrative [facility] - 10/08/2024 6:41 AM EDT Peripheral blood smear was scanned per review criteria approved by the laboratory medical advisor. us Eileen Schroeder MD, PhD LAB BLOOD ORDERABLES Final Result [facility] [address] [place] [address], [facility] * Vancomycin, random (10/08/2024 5:36 AM EDT) Vancomycin Random 16.0 ug/mL 10/08/2024 6:20 AM EDT [facility] Comment:Reference range not established for this test. Plasma 10/08/2024 5:36 AM EDT 10/08/2024 5:52 AM EDT us Jodi Ortiz PharmD LAB BLOOD ORDERABLES Final Result [facility] [address] [facility]. [address] * Urine Drug Confirmation (10/07/2024 10:50 PM EDT) BARBITURATES NOT PRESENT 10/09/2024 1:33 PM EDT [facility] BENZODIAZEPINES PRESENT 1:33 PM EDT [facility] Nordiazepam 3 ng/mL 10/09/2024 1:33 PM EDT [facility] Temazepam 6 ng/mL 10/09/2024 1:33 PM EDT [facility] CANNABINOIDS NOT PRESENT 10/09/2024 1:33 PM EDT [facility] FRONT END SPECIALIST STIMULANTS NOT PRESENT 1:33 PM EDT [facility] OPIOID ANALGESICS PRESENT 025 1:33 PM EDT [facility] Oxycodone 300 ng/mL 10/09/2024 1:33 PM EDT [facility] Oxymorphone 32 ng/mL 10/09/2024 1:33 PM EDT [facility] Tramadol >1000 ng/mL 10/09/2024 1:33 PM EDT [facility] OPIOID ANTAGONISTS NOT PRESENT 10/09 1:33 PM EDT [facility] SEDATIVES/MUSCLE RELAXANTS NOT PRESENT 10/09/2024 1:33 PM EDT [facility] TRICYCLIC ANTIDEPRESSANTS NOT PRESENT 10/09/2024 1:33 PM EDT [facility] Urine 10/07/2024 10:5 0 PM EDT 10/08/2024 3:00 AM EDT us Gerri Peterson MD URINE ORDERABLES Final Result Performing Organization Address [facility] Co de Phone Number [facility] [address] [facility]. [address] * Giardia Cryptosporidium Antigens (10/07/2024 10:50 PM EDT) Cryptosporidium Ag Negative Negative 2024 7:59 AM EDT [facility] Giardia Ag Negative Negative 10/08/2024 7:59 AM EDT [facility] Comment: Detection of Giardia and Cryptosporidium antigen is more sensitive and specific than microscopy. Because antigens are shed continuously, repeat testing is rarely warranted. Feces 10/07/2024 10:5 0 PM EDT 10/08/2024 1:53 AM EDT Comment:F Bisi Hernandez DO MICROBIOLOGY - GENERAL ORDERABLE S Final Result [facility] [address] [place] [address], [facility] * (ABNORMAL) Urine Drug Screen Reflex to Confirmation (10/07/2024 10:50 PM EDT) Amphetamine, 500 ng/mL Cutoff Negative Negative 10/08/2024 3:00 AM EDT [facility] Barbiturates UR, 300 ng/mL Cutoff Negative Negative 10/08/2024 3:00 AM EDT [facility] Buprenorphine, 5 ng/mL Cutoff Negative Negative 10/08/2024 3:00 AM EDT [facility] Benzodiazepines UR, 300 ng/mL Cutoff Negative Negative 10/08/2024 3:00 AM EDT [facility] Cocaine UR, 300 ng/mL Cutoff Negative Negative 10/08/2024 3:00 AM EDT [facility] Methadone, UR, 300 ng/mL Cutoff Negative Negative 10/08/2024 3:00 AM EDT [facility] Opiates UR, 300 ng/mL Cutoff Negative Negative 10/08/2024 3:00 AM EDT [facility] Oxycodone, 100 ng/mL Cutoff Presumptive Positive(A) Negative 10/08/2024 3:00 AM EDT [facility] Tricyclic Antidepressants, 300 ng/mL Cutoff Negative Negative 10/08/2024 3:00 AM EDT [facility] Comment:This test has been d eveloped and its performance characteristics determined by [facility] which is certified under the [...] eveloped and its performance characteristics determined by [facility] which is certified under the [...] Peterson MD URINE ORDERABLES Final Result [facility] [address] [id number], [facility] * Comprehensive Drug Screen (10/07/2024 10:50 PM EDT) Creatinine, Ur CANCELED mg/dL 10/08/2024 7:09 AM EDT [facility] Comment:The released value 8 7.30 was canceled by YAQUELIN on 10/08/2024 07:09 BARBITURATES [facility]ELED [facility] Butalbital [facility] Phenobarbital [facility] Secobarbital [facility] BENZODIAZEPINES [facility] Alprazolam [facility] Clonazepam [facility] Diazepam [facility] Alpha-Hydroxyalprazo mcknight [facility] Lorazepam [facility] Midazolam [facility] Nordiazepam CANCELED [facility] Oxazepam CANCELED [facility] Temazepam CANCELED [facility] CANNABINOIDS CANCELED [facility] THC-COOH CANCELED [facility] FRONT END SPECIALIST STIMULANTS CANCELED [facility] Cocaine Metabolite(benzoylec gonine) CANCELED [facility] Amphetamine CANCELED [facility] Methamphetamine CANCELED [facility] MDA CANCELED [facility] MDEA CANCELED [facility] Phencyclindine (PCP) CANCELED [facility] OPIOID ANALGESICS CANCELED [facility] Heroin Metabolite(6-RAMONA) CANCELED [facility] Codeine CANCELED [facility] Morphine CANCELED [facility] Hydrocodone CANCELED [facility] Hydromorphone CANCELED [facility] Oxycodone CANCELED [facility] Oxymorphone CANCELED [facility] Meperidine CANCELED [facility] Normeperidine CANCELED [facility] Methadone CANCELED [facility] Methadone Metabolite (EDDP) CANCELED [facility] Tramadol CANCELED [facility] Fentanyl CANCELED [facility] Norfentanyl CANCELED [facility] Sufentanil CANCELED [facility] OPIOID ANTAGONISTS CANCELED [facility] Buprenorphine CANCELED [facility] Norbuprenorphine CANCELED [facility] Naltrexone CANCELED [facility] Naloxone CANCELED [facility] SEDATIVES/MUSCLE RELAXANTS CANCELED [facility] Carisoprodol CANCELED [facility] Meprobamate CANCELED [facility] TRICYCLIC ANTIDEPRESSANTS CANCELED [facility] Amitriptyline CANCELED [facility] Clomipramine CANCELED [facility] Desipramine [facility] Doxepin CANCELED [facility] Imipramine CANCELED [facility] Nortriptyline CANCELED [facility] Urine Creatinine CANCELED mg/dL [facility] Nitrite CANCELED [facility] Glutaraldehyde CANCELED [facility] pH CANCELED 10/08/2024 7:09 AM EDT [facility] Comment:The released value 5 .6 was canceled by YAQUELIN on 10/08/2024 07:09 Specific [place] CANCELED 10/09/19 7:09 AM EDT [facility] Comment:The released value 1 .009 was canceled by YAQUELIN on 10/08/2024 07:09 Bleach [facility]EL[facility] Pyridinium Chlorochromate CANCELED [facility] Urine 10/07/2024 10:5 0 PM EDT 10/08/2024 2:07 AM EDT Narrative [facility] - 10/08/2024 7:09 AM EDT See accn [id number] Gerri Peterson MD URINE ORDERABLES Edited Result - Final Performing Organization Address [facility] Co de Phone Number [facility] [address] [facility]. [address] * Ova and Parasite Comprehensive w/ Giardia/Crypto (10/07/2024 10:50 PM EDT) O & P Method: Concentration and Trichrome Stain [facility] Results No Amoeba, Ova, Or Parasites Seen. -- O and P examination of additional specimens is recommended only for symptomatic patients, immunosuppressed patients or those with an appropriate travel history. [facility] Feces FECES / Unknown 10/07/2024 1 0:50 PM EDT 10/08/2024 1:53 AM EDT Comment:F Bisi Hernandez DO MICROBIOLOGY - GENERAL ORDERABLE S Final Result Performing Organization Address [facility] Co de Phone Number [facility] [address] [facility]. [address] * Enteric Pathogen Panel (10/07/2024 10:50 PM EDT) Campylobacter Group (C. ecoli, C. jejuni, C. trino) Not Detected Not Detected 10/08/2024 4:40 AM EDT [facility] Salmonella species Not Detected Not Detected 10/08/2024 4:40 AM EDT [facility] Shigella species Not Detected Not Detected 10/08/2024 4:40 AM EDT [facility] Vibrio Group (Vibrio cholerae, Vibrio parahaemolyticus) Not Detected Not Detected 10/08/2024 4:40 AM EDT [facility] Yersinia enterocolitica Not Detected Not Detected 10/08/2024 4:40 AM EDT [facility] Shiga toxin 1 Not Detected Not Detected 10/08/2024 4:40 AM EDT [facility] Shiga toxin 2 Not Detected Not Detected 10/08/2024 4:40 AM EDT [facility] Norovirus Not Detected Not Detected 10/08/2024 4:40 AM EDT [facility] Rotavirus Not Detected Not Detected 10/08/2024 4:40 AM EDT [facility] Comment: The Enteric Pathogen Panel is [...] AND STOOLS ORDERABLE S Final Result [facility] [address] * Hepatitis C Antibody (10/07/2024 6:38 PM EDT) HCV Ab Nonreactive Nonreactive 10/07/2024 7:56 PM EDT [facility] Comment:Health Department no tified in accordance with reportable infectious disease guidelines. Serum 10/07/2024 6:38 PM EDT 10/07/2024 6:52 PM EDT Narrative [facility] - 10/07/2024 7:56 PM EDT Antibodies to HCV not detected; does not exclude the possibility of exposure to HCV. us Gerri Peterson MD LAB BLOOD ORDERABLES Final Resu lt Performing Organization Address [facility]/ZIP Co de Phone Number [facility] [address] * Hepatitis B Surface Antibody, Quantitati (10/07/2024 6:38 PM EDT) Hep B S Ab Nonreactive Nonreactive 10/07/2024 8:00 PM EDT [facility] HBSAB NUMBER 7.88 0.00 - 7.99 mIU/mL 10/07/2024 8:00 PM EDT [facility] Serum 10/07/2024 6:38 PM EDT 10/07/2024 6:52 PM EDT [facility] - 10/07/2024 8:00 PM EDT Individual is considered not immune to HBV infection. Gerri Peterson MD LAB BLOOD ORDERABLES Final Resu lt Performing Organization Address [facility] Co de Phone Number [facility] [address] * Hepatitis B surface antigen (10/07/2024 6:38 PM EDT) Hep B Surface Ag Nonreactive Nonreactive 10/07/2024 7:51 PM EDT [facility] Comment:Health Department no tified in accordance with reportable infectious disease guidelines. Serum 10/07/2024 6:38 PM EDT 10/07/2024 6:52 PM EDT [facility] - 10/07/2024 7:51 PM EDT Specimen is considered negative for HBsAg. Gerri Peterson MD LAB BLOOD ORDERABLES Final Resu lt Performing Organization Address [facility] Co de Phone Number [facility] [address] [facility]. [address] * Hepatitis A Antibody Total (10/07/2024 6:38 PM EDT) Anti-HAV Total (IgG + IgM) Nonreactive 10/07/2024 7:53 PM EDT [facility] Serum 10/07/2024 6:38 PM EDT 10/07/2024 6:52 PM EDT Narrative [facility] - 10/07/2024 7:53 PM EDT HAV antibodies not detected Gerri Peterson MD LAB BLOOD ORDERABLES Final Resu lt Performing Organization Address [facility]/ZIP Co de Phone Number [facility] [address] [facility]. [address] * Hepatitis A IgM (10/07/2024 6:38 PM EDT) Hep A IgM Nonreactive Nonreactive 10/07/2024 7:46 PM EDT [facility] Serum 10/07/2024 6:38 PM EDT 10/07/2024 6:52 PM EDT [facility] - 10/07/2024 7:46 PM EDT IgM anti-HAV not detected. Does not exclude the possibility of exposure to or infection with HAV. Levels of IgM anti-HAV may be below the cut-off in early infection. Gerri Peterson MD LAB BLOOD ORDERABLES Final Resu lt Performing Organization Address [facility] Co de Phone Number [facility] [address] [place] [address]. [address] * (ABNORMAL) Lipid Profile (10/07/2024 6:37 PM EDT) Non-HDL Cholesterol, Calculated See Note 0 - 129 mg/dL 10/07/2024 7:42 PM EDT [facility] Comment: Desirable: < 130 mg/dL Above Desirable: 130-159 mg/dL Borderline High: 160-189 mg/dL High: 190-219 mg/dL Very High: > 219 mg/dL Unable to calculate result either because contributing result(s) are outside of reportable range or are not available. Cholesterol, Total <25 0 - 200 mg/dL 10/07/2024 7:42 PM EDT [facility] Triglycerides 30 10 - 149 mg/dL 10/07/2024 7:42 PM EDT [facility] HDL 4(L) 60 - 92 mg/dL [...] See Note mg/dL 7:42 PM EDT [facility] Comment:Unable to calculate result either because contributing result(s) are outside of reportable range or are not available. Plasma 10/07/2024 6:37 PM EDT 10/07/2024 7:06 PM EDT Narrative [facility] - 10/07/2024 7:42 PM EDT LDL cholesterol calculated using the Friedewald equation. us Gerri Peterson MD LAB BLOOD ORDERABLES Final Resu lt [facility] [address] [place] [address], [facility] * (ABNORMAL) Alpha 1 Antitrypsin AAT Quant & Mutation (10/07/2024 6:37 PM EDT) A-1 Antitrypsin 99(L) 101 - 187 mg/dL 10/09/2024 4:28 AM EDT [facility] A-1 Antitrypsin Pheno Comment 10/10/2024 4:05 PM EDT [facility] Comment: A1A Phenotype is consistent with a heterozygous phenotype consisting of one M (normal) allele and one allele that cannot be identified at this time. The unknown allele is not consistent with Z (deficient), S (deficient), or F (deficient). MM Phenotype is considered to be normal , producing normal serum levels of [id number] inhibitor and not associated with clinical disease. [...] 10/10/2024 4:08 PM EDT PERFORMED AT: [facility] [address] [id number] CADD OPERATOR: Bassam Khalil, PhD PHONE: [phone] PERFORMED AT: [facility] [address] [id number] CADD OPERATOR: Mandy Abdul MD PHONE: [phone] us Gerri Peterson MD LAB BLOOD ORDERABLES Final Resu lt [facility] [address] * (ABNORMAL) CMV IgG Antibody (10/07/2024 6:37 PM EDT) CMV IgG Positive(A ) Negative 10/07/2024 8:26 PM EDT [facility] CMV IGG NUM 8.40(H) 0.00 - 0.59 U/mL 10/07/2024 8:26 PM EDT [facility] Serum 10/07/2024 6:37 PM EDT 10/07/2024 6:50 PM EDT Gerri Peterson MD LAB BLOOD ORDERABLES Final Resu lt [facility] [address] [facility]. [address] * HIV-1 and HIV-2 Antibodies w Reflex (10/07/2024 6:37 PM EDT) HIV 1+2 AB/AGN Nonreactive Nonreactive 10/07/2024 7:54 PM EDT [facility] Serum 10/07/2024 6:37 PM EDT 10/07/2024 7:06 PM EDT Narrative [facility] - 10/07/2024 7:54 PM EDT \HIVRNR Gerri Peterson MD LAB BLOOD ORDERABLES Final Resu lt [facility] [address] [facility]. [address] * TSH (Thyroid Stimulating Hormone) (10/07/2024 6:37 PM EDT) TSH 0.81 0.45 - 4.12 uIU/mL 10/07/2024 8:17 PM EDT [facility] Serum 10/07/2024 6:37 PM EDT 10/07/2024 6:50 PM EDT Gerri Peterson MD LAB BLOOD ORDERABLES Final Resu lt [facility] [address] [facility]. [address] * Katie-Watkins virus early antigen antibody, IgG (10/07/2024 6:37 PM EDT) EBV Early Antigen Ab, IgG <9.0 0.0 - 8.9 U/mL 10/09/2024 2:16 PM EDT [facility] Comment: Negative < 9.0 Equivocal 9.0 - 10.9 Positive >10.9 Serum Frozen 10/07/2024 6:37 PM EDT 10/09/2024 3:07 PM EDT Narrative [facility] - 10/09/2024 3:07 PM EDT PERFORMED AT: [facility] [id number] CADD OPERATOR: Bassam Khalil, PhD PHONE: [phone] Gerri Peterson MD LAB BLOOD ORDERABLES Final Resu lt Performing Organization Address [facility] Co de Phone Number [facility] [address] * (ABNORMAL) Varicella zoster antibody, IgG (10/07/2024 6:37 PM EDT) Varicella IgG Positive( A) Negative S/CO 10/07/2024 8:34 PM EDT [facility] Comment:Result indicates the presence of detectable VZV IgG antibodies. A positive result is generally indicative of exposure to the pathogen or administration of specific immunoglobulins, but it is no indication of active infection or stage of disease. This test is not approved for determining vaccine-induced immunity to varicella zoster virus. VZV NUM 6.76(H) 0.00 - 0.99 S/CO 10/07/2024 8:34 PM EDT [facility] Serum 10/07/2024 6:37 PM EDT 10/07/2024 6:50 PM EDT Gerri Peterson MD LAB BLOOD ORDERABLES Final Resu lt Performing Organization Address City/[facility]/ZIP Co de Phone Number [facility] [address] * Toxoplasma gondii antibody, IgG (10/07/2024 6:37 PM EDT) Toxoplasma Gondii IgG <3.0 0.0 - 7.1 IU/mL 10/09/2024 7:53 AM EDT [facility] Comment: Negative <7.2 Equivocal 7.2 - 8.7 Positive >8.7 Serum 10/07/2024 6:37 PM EDT 10/09/2024 8:07 AM EDT Narrative [facility] - 10/09/2024 8:07 AM EDT PERFORMED AT: [facility] [address] [id number] CADD OPERATOR: Bassam Khalil, PhD PHONE: [phone] Gerri Peterson MD LAB BLOOD ORDERABLES Final Resu lt Performing Organization Address City/[facility]/ZIP Co de Phone Number [facility] [address] [facility]. [address] * Syphilis Screening (Trepia) (10/07/2024 6:37 PM EDT) Treponema Pallidum Negative Negative 10/07/2024 8:27 PM EDT [facility] Comment: No serological evidence of infection with Treponema pallidum (incubating or early primary syphilis cannot be excluded). Serum 10/07/2024 6:37 PM EDT 10/07/2024 6:50 PM EDT Gerri Peterson MD LAB BLOOD ORDERABLES Final Resu lt Performing Organization Address City/[facility] Co de Phone Number [facility] [address] [facility]. [address] * Strongyloides Ab (10/07/2024 6:37 PM EDT) Strongyloides Ab Negative Negative 10/11/19 11:51 AM EDT [facility] Serum 10/07/2024 6:37 PM EDT 10/10/2024 12:07 PM EDT Narrative [facility] - 10/10/2024 12:07 PM EDT PERFORMED AT: [facility] [id number] CADD OPERATOR: Mandy Abdul MD PHONE: [phone] us Gerri Peterson MD LAB BLOOD ORDERABLES Final Resu lt [facility] [address] [place] [address], [facility] * Phosphatidylethanol Confirmation, B (10/07/2024 6:37 PM EDT) PETH 16:0/18.1 (POPETH) <10 Cutoff: 10 ng/mL 10/10/2024 10:42 AM EDT [facility] Comment: Phosphatidylethanol (PEth) homologues result interpretation [...] 10 ng/mL 10/10/2024 10:42 AM EDT [facility] Comment: PEth 16:0/18:2 (PLPEth) Reference ranges are not well established PEth Interpretation Negative. 10/10 10:42 AM EDT [facility] Comment: ADDITIONAL INFORMATION This report is intended for use in clinical monitoring and management of patients. It is not intended for use in employment-related testing. This test was developed and its performance characteristics determined by [facility] in a manner consistent with CLIA requirements. This test has not been cleared or approved by the U.S. Food and Drug Administration. Test Performed by: [facility] - [address] [address] [employer] Architect: Kathy Ortiz Ph.D.; CLIA# [id number] Whole Blood 10/07/2024 6:37 PM EDT 10/10/2024 10:42 AM EDT us Gerri Peterson MD LAB BLOOD ORDERABLES Final Resu lt [facility] [address] * (ABNORMAL) MMR(IgG) Panel (Measles, Mumps, Rubella) (10/07/2024 6:37 PM EDT) Mumps IgG Positive 10/07/2024 8:26 PM EDT [facility] MUMPS IGG NUM 77.80(H) 0.0 - 8.9 U/mL 10/07/2024 8:26 PM EDT [facility] Rubella IgG Scr Positive 10/07/2024 8:28 PM EDT [facility] RUB NUM 3.04(H) 0.00 - 0.89 INDEX 10/07/2024 8:28 PM EDT [facility] Rubeola Ab, IgG Positive 10/07/2024 8:26 PM EDT [facility] RUB IGG NUM 192.00(H) 0.00 - 13.40 U/mL 10/07/2024 8:26 PM EDT [facility] Serum 10/07/2024 6:37 PM EDT 10/07/2024 6:50 PM EDT Narrative [facility] - 10/07/2024 8:28 PM EDT Presence [...] LAB BLOOD ORDERABLES Final Resu lt [facility] [address] [place] [address], [facility] * IgA (10/07/2024 6:37 PM EDT) IgA 227.0 70.0 - 400.0 mg/dL 10/08/2024 11:07 AM EDT [facility] Comment:Please interpret the se findings in conjunction with clinical findings, protein electrophoresis, and immunotyping/immunofixation results. Serum 10/07/2024 6:37 PM EDT 10/07/2024 6:50 PM EDT Result [facility] Gerri Peterson MD LAB BLOOD ORDERABLES Final Resu lt [facility] [address] * Ethanol, Serum (10/07/2024 6:37 PM EDT) Ethanol <10 0 - 10 mg/dL 10/07/2024 8:36 PM EDT [facility] Serum 10/07/2024 6:37 PM EDT 10/07/2024 6:50 PM EDT Result [facility] Gerri Peterson MD LAB BLOOD ORDERABLES Final Resu lt Performing Organization Address [facility]/ZIP Co de Phone Number [facility] [address] * ABO/Rh - Second (10/07/2024 6:37 PM EDT) ABO Grouping O 10/07/2024 7:16 PM EDT [facility] Rh Type Positive 10/07/2024 7:16 PM EDT [facility] Blood 10/07/2024 6:37 PM EDT 10/07/2024 6:56 PM EDT Narrative [facility] - 10/07/2024 7:18 PM EDT This is not a duplicate order. It is required that ABO be drawn twice for LIVER TRANSPLANT Result [facility] Gerri Peterson MD BLOOD BANK TEST ORDERABLES Denisse l Result Performing Organization Address City/[facility]/ZIP Co de Phone Number [facility] [address] [facility]. [address] * ABO/Rh- Initial (10/07/2024 6:37 PM EDT) ABO Grouping O 10/07/2024 7:59 PM EDT [facility] Rh Type Positive 10/07/2024 7:59 PM EDT [facility] Blood 10/07/2024 6:37 PM EDT 10/07/2024 7:25 PM EDT Gerri Peterson MD BLOOD BANK TEST ORDERABLES Denisse l Result [facility] [address] * X-ray Mandible minimum 4-views (10/07/2024 [...] EXAM: US ABDOMEN COMPLETE EXAM: US DUPLEX [id number] COMPLETE INDICATION: elevated bilirubin COMPARISON: Ultrasound and [...] EXAM: US ABDOMEN COMPLETE EXAM: US DUPLEX [id number] COMPLETE INDICATION: elevated bilirubin COMPARISON: Ultrasound and [...] US ORDERABLES Final Result * US Duplex Ths-Yap-Spzjtpo Comp (10/07/2024 3:48 PM EDT) Anatomical Region [...] EXAM: US ABDOMEN COMPLETE EXAM: US DUPLEX [id number] COMPLETE INDICATION: elevated bilirubin COMPARISON: Ultrasound and [...] EXAM: US ABDOMEN COMPLETE EXAM: US DUPLEX [id number] COMPLETE INDICATION: elevated bilirubin COMPARISON: Ultrasound and [...] - 1.1 10/07/2024 6:55 AM EDT [facility] Comment: RECOMMENDED THERAPEUTIC RANGES USING INR : Stable oral anticoagulant therapy: 2.0 - 3.0 Mechanical prosthetic heart valve: 2.5 - 3.5 Recurrent acute myocardial infarction: 2.5 - 3.5 Plasma 10/07/2024 6:00 AM EDT 10/07/2024 6:39 AM EDT us Eileen Schroeder MD, PhD LAB BLOOD ORDERABLES Final Result THE [facility] [address] * (ABNORMAL) Hepatic Function Panel (10/07/2024 6:00 AM EDT) Total Bilirubin 9.7(H) 0.0 - 1.5 mg/dL 10/07/2024 7:10 AM EDT [facility] Bilirubin, Direct 5.21(H) 0.00 - 0.40 mg/dL 10/07/2024 7:10 AM EDT [facility] AST 39 13 - 39 U/L 10/07/2024 7:10 AM EDT [facility] ALT 18 7 - 52 U/L 10/07/2024 7:10 AM EDT [facility] Alkaline Phosphatase 98 36 - 125 U/L 10/07/2024 7:10 AM EDT [facility] Total Protein 4.8(L) 6.4 - 8.9 g/dL 10/07/2024 7:10 AM EDT [facility] Albumin 3.6 3.5 - 5.7 g/dL 10/07/2024 7:10 AM EDT [facility] Bilirubin, Indirect 4.49(H) 0.00 - 1.10 mg/dL 10/07/2024 7:10 AM EDT [facility] Plasma 10/07/2024 6:00 AM EDT 10/07/2024 6:39 AM EDT Eileen Schroeder MD, PhD LAB BLOOD ORDERABLES Final Result Performing Organization Address City/[facility]/ZIP Co de Phone Number [facility] [address] [facility]. [address] * Magnesium (10/07/2024 6:00 AM EDT) Magnesium 1.7 1.5 - 2.5 mg/dL 10/07/2024 7:10 AM EDT [facility] Plasma 10/07/2024 6:00 AM EDT 10/07/2024 6:39 AM EDT Eileen Schroeder MD, PhD LAB BLOOD ORDERABLES Final Result Performing Organization Address [facility] Co de Phone Number [facility] [address] * (ABNORMAL) Renal Function Panel w/EGFR (10/07/2024 6:00 AM EDT) Sodium 132(L) 133 - 146 mmol/L 10/07/2024 7:10 AM EDT [facility] Potassium 3.9 3.5 - 5.3 mmol/L 10/07/2024 7:10 AM EDT [facility] Chloride 103 98 - 110 mmol/L 10/07/2024 7:10 AM EDT [facility] CO2 19(L) 21 - 33 mmol/L 10/07/2024 7:10 AM EDT [facility] Anion Gap 10 3 - 16 mmol/L 10/07/2024 7:10 AM EDT [facility] BUN 64(H) 7 - 25 mg/dL 10/07/2024 7:10 AM EDT [facility] Creatinine 3.38(H) 0.60 - 1.30 mg/dL 10/07/2024 7:10 AM EDT [facility] Glucose 111(H) 70 - 100 mg/dL 10/07/2024 7:10 AM EDT [facility] Calcium 9.1 8.6 - 10.3 mg/dL 10/07/2024 7:10 AM EDT [facility] Phosphorus 4.2 2.1 - 4.7 mg/dL 10/07/2024 7:10 AM EDT [facility] Albumin 3.6 3.5 - 5.7 g/dL 10/07/2024 7:10 AM EDT [facility] Osmolality, Calculated 293 278 - 305 mOsm/kg 10/07/2024 7:10 AM EDT [facility] EGFR 22 10/07/2024 7:10 AM EDT [facility] Comment:As of 2021, the estimated GFR [...] PhD LAB BLOOD ORDERABLES Final Result [facility] [address] [place] [address], [place] * (ABNORMAL) CBC (10/07/2024 6:00 AM EDT) WBC 3.3(L) 3.8 - 10.8 10E3/uL 10/07/2024 7:55 AM EDT [facility] RBC 2.06(L) 4.20 - 5.80 10E6/uL 10/07/2024 7:55 AM EDT [facility] Hemoglobin 7.4(L) 13.2 - 17.1 g/dL 10/07/2024 7:55 AM EDT [facility] Hematocrit 21.5(L) 38.5 - 50.0 % 10/07/2024 7:55 AM EDT [facility] MCV 104.1(H) 80.0 - 100.0 fL 10/07/2024 7:55 AM EDT [facility] MCH 35.8(H) 27.0 - 33.0 pg 10/07/2024 7:55 AM EDT [facility] MCHC 34.4 32.0 - 36.0 g/dL 10/07/2024 7:55 AM EDT [facility] RDW 17.5(H) 11.0 - 15.0 % 10/07/2024 7:55 AM EDT [facility] Platelets 35(L) 140 - 400 10E3/uL 10/07/2024 7:55 AM EDT [facility] Comment: Specimen checked for clots. None detected. Slide Reviewed for PLT Clumps. None Seen. _Platelet Morphology Normal _Platelets Appear Decreased Platelet Estimate Decreased 10/07/2024 7:55 AM EDT [facility] MPV 8.0 7.5 - 11.5 fL 10/07/2024 7:55 AM EDT [facility] Whole Blood 10/07/2024 6:00 AM EDT 10/07/2024 6:40 AM EDT Narrative [facility] - 10/07/2024 7:55 AM EDT Peripheral blood smear was scanned per review criteria approved by the laboratory medical advisor. us Eileen Schroeder MD, PhD LAB BLOOD ORDERABLES Final Result [facility] [address] * AFP Tumor Marker (10/07/2024 6:00 AM EDT) [facility] AFP-Tumor Marker 2.0 0.0 - 9.0 ng/mL 10/07/2024 7:11 AM EDT [facility] Serum 10/07/2024 6:00 AM EDT 10/07/2024 6:39 AM EDT Narrative [facility] - 10/07/2024 7:11 AM EDT The testing method for AFP is a chemiluminescent immunoassay manufactured by [employer] Concentrations of AFP obtained by different assay methods or kits may vary and cannot be used interchangeably. AFP results cannot be interpreted as absolute evidence of the presence or absence of malignant disease. Shila Rivera MD LAB BLOOD ORDERABLES Final Resul t [facility] [address] [facility]. [address] * Vancomycin, random (10/07/2024 6:00 AM EDT) [facility] Vancomycin Random 21.1 ug/mL 10/07/2024 7:08 AM EDT [facility] Comment:Reference range not established for this test. Plasma 10/07/2024 6:00 AM EDT 10/07/2024 6:39 AM EDT Kiet Gardiner PharmD LAB BLOOD ORDERABLES Final Re sult [facility] [address] [facility]. [address] * Osmolality (10/06/2024 2:50 PM EDT) [facility] Osmolality, Measured 304 278 - 305 mOsm/kg 10/06/2024 3:49 PM EDT [facility] Serum 10/06/2024 2:50 PM EDT 10/06/2024 2:56 PM EDT Chari Vanegas MD LAB BLOOD ORDERABLES Final Resul t [facility] [address] [place] [address], [facility] * CT Head WO [...] Ur <15 mmol/L 10/06/2024 1:56 PM EDT [facility] Comment:Reference range not established for this test. Urine 10/06/2024 1:25 PM EDT 10/06/2024 1:32 PM EDT Chari Vanegas MD URINE ORDERABLES Final Result Performing Organization Address [facility] de Phone Number [facility] [address] [place] [address] * Potassium, urine, random (10/06/2024 1:25 PM EDT) Potassium Urine Random 50.0 mmol/L 10/06/2024 1:56 PM EDT [facility] Comment:Reference range not established for this test. Urine 10/06/2024 1:25 PM EDT 10/06/2024 1:32 PM EDT Chari Vanegas MD URINE ORDERABLES Final Result Performing Organization Address [facility] de Phone Number [facility] [address] [place] [address]. [address] * Sodium, urine, random (10/06/2024 1:25 PM EDT) Sodium, Ur <10 mmol/L 10/06/2024 1:56 PM EDT [facility] Comment:Reference range not established for this test. Urine 10/06/2024 1:25 PM EDT 10/06/2024 1:32 PM EDT Chari Vanegas MD URINE ORDERABLES Final Result [facility] [address] [facility]. [address] * Creatinine, Urine, Random (10/06/2024 1:25 PM EDT) Creatinine, Urine 87.40 mg/dL 10/06/2024 1:56 PM EDT [facility] Comment:Reference range not established for this test. Urine 10/06/2024 1:25 PM EDT 10/06/2024 1:32 PM EDT us Chari Vanegas MD URINE ORDERABLES Final Result Performing Organization Address [facility] Co de Phone Number [facility] [address] * Osmolality, Urine (10/06/2024 1:25 PM EDT) Osmolality, Ur 386 50 - 1,200 mOsm/kg 10/06/2024 1:55 PM EDT [facility] Urine 10/06/2024 1:25 PM EDT 10/06/2024 1:32 PM EDT us Chari Vanegas MD URINE ORDERABLES Final Result Performing Organization Address [facility] Co de Phone Number [facility] [address] [facility]. [address] * Urine Drug Confirmation (10/06/2024 11:51 AM EDT) BARBITURATES NOT PRESENT 10/09/2024 3:23 PM EDT [facility] Comment:Results were recheck ed. BENZODIAZEPINES PRESENT 3:23 PM EDT [facility] Nordiazepam 3 ng/mL 10/09/2024 3:23 PM EDT [facility] Comment:Results were recheck ed. Temazepam 8 ng/mL 10/09/2024 3:23 PM EDT [facility] Comment:Results were recheck ed. CANNABINOIDS NOT PRESENT 10/09/2024 3:23 PM EDT [facility] FRONT END SPECIALIST STIMULANTS NOT PRESENT 3:23 PM EDT [facility] OPIOID ANALGESICS PRESENT 025 3:23 PM EDT [facility] Oxycodone 329 ng/mL 10/09/2024 3:23 PM EDT [facility] Oxymorphone 61 ng/mL 10/09/2024 3:23 PM EDT [facility] Tramadol >1000 ng/mL 10/09/2024 3:23 PM EDT [facility] OPIOID ANTAGONISTS NOT PRESENT 10/09 3:23 PM EDT [facility] SEDATIVES/MUSCLE RELAXANTS NOT PRESENT 10/09/2024 3:23 PM EDT [facility] TRICYCLIC ANTIDEPRESSANTS NOT PRESENT 10/09/2024 3:23 PM EDT [facility] Urine 10/06/2024 11:5 1 AM EDT 10/06/2024 1:13 PM EDT Bisi Hernandez DO URINE ORDERABLES Final Result Performing Organization Address City/State/[facility] Co de Phone Number [facility] [address] * (ABNORMAL) Urine Drug Screen Reflex to Confirmation (10/06/2024 11:51 AM EDT) Amphetamine, 500 ng/mL Cutoff Negative Negative 10/06/2024 1:13 PM EDT [facility] Barbiturates UR, 300 ng/mL Cutoff Negative Negative 10/06/2024 1:13 PM EDT [facility] Buprenorphine, 5 ng/mL Cutoff Negative Negative 10/06/2024 1:13 PM EDT [facility] Benzodiazepines UR, 300 ng/mL Cutoff Negative Negative 10/06/2024 1:13 PM EDT [facility] Cocaine UR, 300 ng/mL Cutoff Negative Negative 10/06/2024 1:13 PM EDT [facility] Methadone, UR, 300 ng/mL Cutoff Negative Negative 10/06/2024 1:13 PM EDT [facility] Opiates UR, 300 ng/mL Cutoff Negative Negative 10/06/2024 1:13 PM EDT [facility] Oxycodone, 100 ng/mL Cutoff Presumptive Positive(A) Negative 10/06/2024 1:13 PM EDT [facility] Tricyclic Antidepressants, 300 ng/mL Cutoff Negative Negative 10/06/2024 1:13 PM EDT [facility] Comment:This test has been d eveloped and its performance characteristics determined by [facility] which is certified under the [...] Negative Negative 10/06/2024 1:13 PM EDT [facility] Comment:This is a screening method only and may be associated with false positive and/or false negative results. Results are not definitive without additional confirmatory testing by mass spectrometry. Fentanyl, 2 ng/mL Cutoff Negative Negative 10/06/2024 1:13 PM EDT [facility] Comment:This test has been d eveloped and its performance characteristics determined by [facility] which is certified under the [...] EDT 10/06/2024 11:58 AM EDT Narrative [facility] - 10/06/2024 1:13 PM EDT CONFIRMATION TO FOLLOW Bisi Hernandez DO URINE ORDERABLES Final Result [facility] [address] [address] * Chloride, urine, random (10/06/2024 11:51 AM EDT) Chloride, Ur <15 mmol/L 10/06/2024 1:13 PM EDT [facility] Comment:Reference range not established for this test. Urine 10/06/2024 11:5 1 AM EDT 10/06/2024 11:57 AM EDT us Bisi Hernandez DO URINE ORDERABLES Final Result Performing Organization Address [facility] Co de Phone Number [facility] [address] * Potassium, urine, random (10/06/2024 11:51 AM EDT) Potassium Urine Random 49.0 mmol/L 10/06/2024 1:13 PM EDT [facility] Comment:Reference range not established for this test. Urine 10/06/2024 11:5 1 AM EDT 10/06/2024 11:57 AM EDT Bisi Hernandez DO URINE ORDERABLES Final Result Performing Organization Address [facility] Co de Phone Number [facility] [address] * Sodium, urine, random (10/06/2024 11:51 AM EDT) Sodium, Ur <10 mmol/L 10/06/2024 1:13 PM EDT [facility] Comment:Reference range not established for this test. Urine 10/06/2024 11:5 1 AM EDT 10/06/2024 11:57 AM EDT Bisi Hernandez DO URINE ORDERABLES Final Result Performing Organization Address [facility] Co de Phone Number [facility] [address] * Urinalysis w/Rfl to Microscopic (10/06/2024 11:51 AM EDT) Color, UA Yellow Yellow,Straw 10/06/2024 12:25 PM EDT [facility] Clarity, UA Clear Clear 10/06/2024 12:25 PM EDT [facility] Specific [place], UA 1.014 1.005 - 1.035 10/06/2024 12:25 PM EDT [facility] pH, UA 6.0 5.0 - 8.0 10/06/2024 12:25 PM EDT [facility] Protein, UA Negative Negative mg/dL 10/06/2024 12:25 PM EDT [facility] Glucose, UA Negative Negative mg/dL 10/06/2024 12:25 PM EDT [facility] Ketones, UA Negative Negative mg/dL 10/06/2024 12:25 PM EDT [facility] Bilirubin, UA Negative Negative 10/06/2024 12:25 PM EDT [facility] Blood, UA Negative Negative 10/06/2024 12:25 PM EDT [facility] Nitrite, UA Negative Negative 10/06/2024 12:25 PM EDT [facility] Urobilinogen, UA <2.0 0.2 - 1.9 mg/dL 10/06/2024 12:25 PM EDT [facility] Leukocyte Esterase, UA Negative Negative 10/06/2024 12:25 PM EDT [facility] Urine 10/06/2024 11:5 1 AM EDT 10/06/2024 11:57 AM EDT Narrative [facility] - 10/06/2024 12:25 PM EDT Microscopic testing is not performed when the dipstick is negative for blood, leukocyte, protein and nitrite. us Bisi Hernandez DO URINE ORDERABLES Final Result Performing Organization Address [facility]/ZIP Co de Phone Number [facility] [address] * Lactic Acid, STAT (10/06/2024 7:38 AM EDT) Lactate 0.9 0.5 - 2.2 mmol/L 10/06/2024 8:05 AM EDT [facility] Plasma 10/06/2024 7:38 AM EDT 10/06/2024 7:42 AM EDT us Chari Vanegas MD LAB BLOOD ORDERABLES Final Resul t [facility] [address] * (ABNORMAL) CBC, STAT (10/06/2024 7:37 AM EDT) WBC 5.6 3.8 - 10.8 10E3/uL 10/06/2024 8:22 AM EDT [facility] RBC 2.50(L) 4.20 - 5.80 10E6/uL 10/06/2024 8:22 AM EDT [facility] Hemoglobin 9.0(L) 13.2 - 17.1 g/dL 10/06/2024 8:22 AM EDT [facility] Hematocrit 25.3(L) 38.5 - 50.0 % 10/06/2024 8:22 AM EDT [facility] MCV 101.2(H) 80.0 - 100.0 fL 10/06/2024 8:22 AM EDT [facility] MCH 36.0(H) 27.0 - 33.0 pg 10/06/2024 8:22 AM EDT [facility] MCHC 35.6 32.0 - 36.0 g/dL 10/06/2024 8:22 AM EDT [facility] RDW 17.7(H) 11.0 - 15.0 % 10/06/2024 8:22 AM EDT [facility] Platelets 52(L) 140 - 400 10E3/uL 10/06/2024 8:22 AM EDT [facility] Comment: Specimen checked for clots. None detected. Slide Reviewed for PLT Clumps. None Seen. MPV 8.2 7.5 - 11.5 fL 10/06/2024 8:22 AM EDT [facility] Whole Blood 10/06/2024 7:37 AM EDT 10/06/2024 7:43 AM EDT us Chari Vanegas MD LAB BLOOD ORDERABLES Final Resul t [facility] [address] [place], [place] [id number] [place] [address] * (ABNORMAL) Comprehensive Metabolic Panel (10/06/2024 7:37 AM EDT) Sodium 129(L) 133 - 146 mmol/L 10/06/2024 8:16 AM [facility] Potassium 4.4 3.5 - 5.3 mmol/L 10/06/2024 8:[facility] Chloride 100 98 - 110 mmol/L 10/06/2024 8:16 AM [facility] CO2 18(L) 21 - 33 mmol/L 10/06/2024 8:16 AM [facility] Anion Gap 11 3 - 16 mmol/L 10/06/2024 8:16 AM [facility] BUN 62(H) 7 - 25 mg/dL 10/06/2024 8:16 AM [facility] Creatinine 3.40(H) 0.60 - 1.30 mg/dL 10/06/2024 8:16 AM T [facility] Glucose 98 70 - 100 mg/dL 10/06/2024 8:16 AM T [facility] Calcium 9.5 8.6 - 10.3 mg/dL 10/06/2024 8:16 AM [facility] Total Bilirubin 14.3(H) 0.0 - 1.5 mg/dL 10/06/2024 8:16 AM [facility] AST 57(H) 13 - 39 U/L 10/06/2024 8:16 AM [facility] ALT 29 7 - 52 U/L 10/06/2024 8:16 AM [facility] Alkaline Phosphatase 158(H) 36 - 125 U/L 10/06/2024 8:16 AM [facility] Total Protein 5.6(L) 6.4 - 8.9 g/dL 10/06/2024 8:16 AM [facility] Albumin 3.6 3.5 - 5.7 g/dL 10/06/2024 8:16 AM [facility] Osmolality, Calculated 286 278 - 305 mOsm/kg 10/06/2024 8:16 AM [facility] EGFR 22 10/06/2024 8:16 AM [facility] Comment:As of 2021, the estimated [...] LAB BLOOD ORDERABLES Final Resul t [facility] [address] [facility] [place] [address], [facility] * (ABNORMAL) Venous Blood Gas, Line/Syringe, STAT (10/06/2024 7:37 AM EDT) PH-Line Draw 7.27(L) 7.32 - 7.42 10/06/2024 7:46 AM EDT [facility] PCO2-Line Draw 36(L) 41 - 51 mm Hg 10/06/2024 7:46 AM EDT [facility] PO2-Line Draw 44(H) 25 - 40 mm Hg 10/06/2024 7:46 AM EDT [facility] HCO3-Line Draw 17(L) 24 - 28 mmol/L 10/06/2024 7:46 AM EDT [facility] CO2 Content-Line Draw 18(L) 25 - 29 mmol/L 10/06/2024 7:46 AM EDT [facility] Base Excess-Line Draw -9.6(L) -2.0 - 3.0 mmol/L 10/06/2024 7:46 AM EDT [facility] %HBO2-Line Draw 69.8 40.0 - 70.0 % 10/06/2024 7:46 AM EDT [facility] Carboxyhgb-Ludivina e Draw 0.7 % 10/06/2024 7:46 AM EDT [facility] Comment: CARBOXYHEMOGLOBIN (CO) REFERENCE RANGES: Non-Smokers: <2 % Smokers: <8 % TOXIC: >20 % Methemoglobin- Line Draw 0.3 0.0 - 1.5 % 10/06/2024 7:46 AM EDT [facility] Reduced Hemoglobin-Ludivina e Draw 29.2(H) 0.0 - 5.0 % 10/06/2024 7:46 AM EDT [facility] Venous, Line Draw 10/06/2024 7:37 AM EDT 10/06/2024 7:43 AM EDT Chari Vanegas MD LAB BLOOD ORDERABLES Final Resul t [facility] [address] [place] [address], [facility] * (ABNORMAL) Venous Blood Gas, Line/Syringe, STAT (10/06/2024 4:03 AM EDT) PH-Line Draw 7.21(L) 7.32 - 7.42 10/06/2024 4:16 AM EDT [facility] PCO2-Line Draw 41 41 - 51 mm Hg 10/06/2024 4:16 AM EDT [facility] PO2-Line Draw 32 25 - 40 mm Hg 10/06/2024 4:16 AM EDT [facility] HCO3-Line Draw 16(L) 24 - 28 mmol/L 10/06/2024 4:16 AM EDT [facility] CO2 Content-Line Draw 18(L) 25 - 29 mmol/L 10/06/2024 4:16 AM EDT [facility] Base Excess-Line Draw -10.8(L) -2.0 - 3.0 mmol/L 10/06/2024 4:16 AM EDT [facility] %HBO2-Line Draw 47.5 40.0 - 70.0 % 10/06/2024 4:16 AM EDT [facility] Carboxyhgb-Ludivina e Draw 2.0 % 10/06/2024 4:16 AM EDT [facility] Comment: CARBOXYHEMOGLOBIN (CO) REFERENCE RANGES: Non-Smokers: <2 % Smokers: <8 % TOXIC: >20 % Methemoglobin- Line Draw 0.7 0.0 - 1.5 % 10/06/2024 4:16 AM EDT [facility] Reduced Hemoglobin-Ludivina e Draw 49.8(H) 0.0 - 5.0 % 10/06/2024 4:16 AM EDT [facility] Venous, Line Draw 10/06/2024 4:03 AM EDT 10/06/2024 4:12 AM EDT [employer] 401 LAB BLOOD ORDERABLES Final Resul t Performing Organization Address [facility] de Phone Number [facility] [address] [facility]. [address] * (ABNORMAL) Protime-INR (10/06/2024 4:01 AM EDT) Protime 21.3(H) 12.1 - 15.1 seconds 10/06/2024 4:40 AM EDT [facility] INR 1.8(H) 0.9 - 1.1 10/06/2024 4:40 AM EDT [facility] Comment: RECOMMENDED THERAPEUTIC RANGES USING INR : Stable oral anticoagulant therapy: 2.0 - 3.0 Mechanical prosthetic heart valve: 2.5 - 3.5 Recurrent acute myocardial infarction: 2.5 - 3.5 Plasma 10/06/2024 4:01 AM EDT 10/06/2024 4:11 AM EDT [facility] BLOOD ORDERABLES Final Resul t Performing Organization Address [facility] de Phone Number [facility] [address] [facility]. [address] * (ABNORMAL) Hepatic Function Panel, AM (10/06/2024 4:01 AM EDT) Total Bilirubin 14.7(H) 0.0 - 1.5 mg/dL 10/06/2024 4:57 AM EDT [facility] Bilirubin, Direct 7.08(H) 0.00 - 0.40 mg/dL 10/06/2024 4:57 AM EDT [facility] AST 60(H) 13 - 39 U/L 10/06/2024 4:57 AM EDT [facility] ALT 31 7 - 52 U/L 10/06/2024 4:57 AM EDT [facility] Alkaline Phosphatase 162(H) 36 - 125 U/L 10/06/2024 4:57 AM EDT [facility] Total Protein 5.3(L) 6.4 - 8.9 g/dL 10/06/2024 4:57 AM EDT [facility] Albumin 3.4(L) 3.5 - 5.7 g/dL 10/06/2024 4:57 AM EDT [facility] Bilirubin, Indirect 7.62(H) 0.00 - 1.10 mg/dL 10/06/2024 4:57 AM EDT [facility] Plasma 10/06/2024 4:01 AM EDT 10/06/2024 4:22 AM EDT [facility] BLOOD ORDERABLES Final Resul t Performing Organization Address [place]/[facility] de Phone Number [facility] [address] [facility]. [address] * Magnesium (10/06/2024 4:01 AM EDT) Magnesium 1.8 1.5 - 2.5 mg/dL 10/06/2024 4:57 AM EDT [facility] Plasma 10/06/2024 4:01 AM EDT 10/06/2024 4:22 AM EDT [facility] BLOOD ORDERABLES Final Resul t [facility] [address] * (ABNORMAL) Renal Function Panel w/EGFR (10/06/2024 4:01 AM EDT) Sodium 129(L) 133 - 146 mmol/L 10/06/2024 4:57 AM EDT [facility] Potassium 4.7 3.5 - 5.3 mmol/L 10/06/2024 4:57 AM EDT [facility] Chloride 100 98 - 110 mmol/L 10/06/2024 4:57 AM EDT [facility] CO2 16(L) 21 - 33 mmol/L 10/06/2024 4:57 AM EDT [facility] Anion Gap 13 3 - 16 mmol/L 10/06/2024 4:57 AM T [facility] BUN 61(H) 7 - 25 mg/dL 10/06/2024 4:57 AM [facility] Creatinine 3.49(H) 0.60 - 1.30 mg/dL 10/06/2024 4:57 AM [facility] Glucose 104(H) 70 - 100 mg/dL 10/06/2024 4:57 AM T [facility] Calcium 9.2 8.6 - 10.3 mg/dL 10/06/2024 4:57 AM [facility] Phosphorus 5.3(H) 2.1 - 4.7 mg/dL 10/06/2024 4:57 AM [facility] Albumin 3.4(L) 3.5 - 5.7 g/dL 10/06/2024 4:57 AM [facility] Osmolality, Calculated 286 278 - 305 mOsm/kg 10/06/2024 4:57 AM [facility] EGFR 22 10/06/2024 4:57 AM [facility] Comment:As of 2021, the estimated [...] LAB BLOOD ORDERABLES Final Resul t [facility] [address] * (ABNORMAL) CBC (10/06/2024 4:01 AM EDT) WBC 7.6 3.8 - 10.8 10E3/uL 10/06/2024 5:16 AM EDT [facility] RBC 2.77(L) 4.20 - 5.80 10E6/uL 10/06/2024 5:16 AM EDT [facility] Hemoglobin 10.1(L) 13.2 - 17.1 g/dL 10/06/2024 5:16 AM EDT [facility] Hematocrit 28.4(L) 38.5 - 50.0 % 10/06/2024 5:16 AM EDT [facility] MCV 102.4(H) 80.0 - 100.0 fL 10/06/2024 5:16 AM EDT [facility] MCH 36.4(H) 27.0 - 33.0 pg 10/06/2024 5:16 AM EDT [facility] MCHC 35.5 32.0 - 36.0 g/dL 10/06/2024 5:16 AM EDT [facility] RDW 18.0(H) 11.0 - 15.0 % 10/06/2024 5:16 AM EDT [facility] Platelets 53(L) 140 - 400 10E3/uL 10/06/2024 5:16 AM EDT [facility] Comment:Specimen checked for clots. None detected. MPV 8.4 7.5 - 11.5 fL 10/06/2024 5:16 AM EDT [facility] Whole Blood 10/06/2024 4:01 AM EDT 10/06/2024 4:11 AM EDT us Bisi Akella DO LAB BLOOD ORDERABLES Final Resul t [facility] [address] * Hepatitis C Antibody (10/06/2024 4:01 AM EDT) HCV Ab Nonreactive Nonreactive 10/06/2024 5:12 AM EDT [facility] Comment:Health Department no tified in accordance with reportable infectious disease guidelines. Serum 10/06/2024 4:01 AM EDT 10/06/2024 4:11 AM EDT Narrative [facility]ALTH LAB - 10/06/2024 5:12 AM EDT Antibodies to HCV not detected; does not exclude the possibility of exposure to HCV. [facility] LAB BLOOD ORDERABLES Final Resul t Performing Organization Address [facility] Co de Phone Number [facility] [address] [place] [address]. [address] * (ABNORMAL) Hepatitis B Surface Antibody, Quantitati (10/06/2024 4:01 AM EDT) Hep B S Ab Reactive( A) Nonreactive 10/06/2024 5:16 AM EDT [facility] HBSAB NUMBER 11.50(H) 0.00 - 7.99 mIU/mL 10/06/2024 5:16 AM EDT [facility] Serum 10/06/2024 4:01 AM EDT 10/06/2024 4:11 AM EDT Narrative [facility] - 10/06/2024 5:16 AM EDT Individual is considered immune to HBV infection. [facility] LAB BLOOD ORDERABLES Final Resul t [facility] [address] [facility]. [address] * Hepatitis B surface antigen (10/06/2024 4:01 AM EDT) Hep B Surface Ag Nonreactive Nonreactive 10/06/2024 5:07 AM EDT [facility] Comment:Health Department no tified in accordance with reportable infectious disease guidelines. Serum 10/06/2024 4:01 AM EDT 10/06/2024 4:11 AM EDT [facility] - 10/06/2024 5:07 AM EDT Specimen is considered negative for HBsAg. [employer] LAB BLOOD ORDERABLES Final Resul t Performing Organization Address City/[facility]/ZIP Co de Phone Number [facility] [address] [facility]. [address] * Hepatitis A Antibody Total (10/06/2024 4:01 AM EDT) Anti-HAV Total (IgG + IgM) Nonreactive 10/06/2024 5:08 AM EDT [facility] Serum 10/06/2024 4:01 AM EDT 10/06/2024 4:11 AM EDT [facility] - 10/06/2024 5:08 AM EDT HAV antibodies not detected [facility] LAB BLOOD ORDERABLES Final Resul t Performing Organization Address [facility] Co de Phone Number [facility] [address] [facility]. [address] * Hepatitis A IgM (10/06/2024 4:01 AM EDT) Hep A IgM Nonreactive Nonreactive 10/06/2024 5:02 AM EDT [facility] Serum 10/06/2024 4:01 AM EDT 10/06/2024 4:11 AM EDT [facility] - 10/06/2024 5:02 AM EDT IgM anti-HAV not detected. Does not exclude the possibility of exposure to or infection with HAV. Levels of IgM anti-HAV may be below the cut-off in early infection. [facility] Final Resul t Performing Organization Address City/[facility]/ZIP Co de Phone Number [facility] [address] [facility]. [address] * (ABNORMAL) Salicylate Level (10/06/2024 4:01 AM EDT) [facility] Salicylate Lvl <3(L) 10 - 30 mg/dL 10/06/2024 4:58 AM EDT [facility] Serum 10/06/2024 4:01 AM EDT 10/06/2024 4:22 AM EDT [facility] [facility] LAB BLOOD ORDERABLES Final Resul t Performing Organization Address [facility] Co de Phone Number [facility] [address] [facility]. [address] * AFP Tumor Marker (10/06/2024 4:01 AM EDT) [facility] AFP-Tumor Marker 2.6 0.0 - 9.0 ng/mL 10/06/2024 4:55 AM EDT [facility] Serum 10/06/2024 4:01 AM EDT 10/06/2024 4:22 AM EDT Narrative [facility] - 10/06/2024 4:55 AM EDT The testing method for AFP is a chemiluminescent immunoassay manufactured by [employer] Concentrations of AFP obtained by different assay methods or kits may vary and cannot be used interchangeably. AFP results cannot be interpreted as absolute evidence of the presence or absence of malignant disease. [facility] BLOOD ORDERABLES Final Resul t Performing Organization Address City/[facility] Co de Phone Number [facility] [address] [facility]. [address] * Upper Respiratory Viral/Bacterial Panel-SLASHER MACHINE OPERATOR Only (10/06/2024 3:12 AM EDT) [facility] Adenovirus Not Detected Not Detected 10/06/2024 11:38 PM EDT [facility] Coronavirus (229E,HKU1,NL63,OC 43) Not Detected Not Detected 10/06/2024 11:38 PM EDT [facility] SARS-CoV-2 Not Detected Not Detected 10/06/2024 11:38 PM EDT [facility] Human Metapneumovirus Not Detected Not Detected 10/06/2024 11:38 PM EDT [facility] Human Rhinovirus/Enterov irus Not Detected Not Detected 10/06/2024 11:38 PM EDT [facility] Influenza A Not Detected Not Detected 10/06/2024 11:38 PM EDT [facility] Influenza A H1 Not Detected Not Detected 10/06/2024 11:38 PM EDT [facility] Influenza A/H1-2009 Not Detected Not Detected 10/06/2024 11:38 PM EDT [facility] Influenza A H3 Not Detected Not Detected 10/06/2024 11:38 PM EDT [facility] Influenza B Not Detected Not Detected 10/06/2024 11:38 PM EDT [facility] Parainfluenza 1 Not Detected Not Detected 10/06/2024 11:38 PM EDT [facility] Parainfluenza 2 Not Detected Not Detected 10/06/2024 11:38 PM EDT [facility] Parainfluenza 3 Not Detected Not Detected 10/06/2024 11:38 PM EDT [facility] Parainfluenza 4 Not Detected Not Detected 10/06/2024 11:38 PM EDT [facility] Resp. Syncycial Virus A Not Detected Not Detected 10/06/2024 11:38 PM EDT [facility] Resp. Syncycial Virus B Not Detected Not Detected 10/06/2024 11:38 PM EDT [facility] Chlamydia pneumoniae Not Detected Not Detected 10/06/2024 11:38 PM EDT [facility] Mycoplasma pneumoniae Not Detected Not Detected 10/06/2024 11:38 PM EDT [facility] Comment: The Respiratory Viral-Bacterial Panel is [...] sent to the [facility] in accordance with state requirements. For a fact sheet for healthcare providers, see https://www.fda.gov/media/799638/download. For a fact sheet for patients, see https://www.fda.gov/media/272992/download. Nasopharyngeal Swab NASOPHARYNGEAL SWAB / Unknown 10/06/2024 3:12 AM EDT 10/06/2024 5:41 PM EDT Comment:SLASHER MACHINE OPERATOR Bisi Mary DO BODY FLUIDS AND STOOLS ORDERABLE S Final Result [facility] [address] [id number], [facility] * X-ray Portable Chest [...] 10/06/2024 2:33 AM EDT us Bisi Hernandez IMG DIAGNOSTIC IMAGING ORDERABLE S Final Result * Phosphatidylethanol Confirmation, B (10/06/2024 1:04 AM EDT) PETH 16:0/18.1 (POPETH) <10 Cutoff: 10 ng/mL 10/10/2024 3:11 AM EDT [facility] Comment: Phosphatidylethanol (PEth) homologues result interpretation [...] Cutoff: 10 ng/mL 10/10/2024 3:11 AM EDT [facility] Comment: PEth 16:0/18:2 (PLPEth) Reference ranges are not well established PEth Interpretation Negative. 10/10 3:11 AM EDT [facility] Comment: ADDITIONAL INFORMATION This report is intended for use in clinical monitoring and management of patients. It is not intended for use in employment-related testing. This test was developed and its performance characteristics determined by [facility] in a manner consistent with CLIA requirements. This test has not been cleared or approved by the U.S. Food and Drug Administration. Test Performed by: [facility] - [facility] [address] [place] [address] [employer] Architect: Kathy Ortiz Ph.D.; CLIA# [id number] Whole Blood 10/06/2024 1:04 AM EDT 10/10/2024 3:11 AM EDT [facility] LAB BLOOD ORDERABLES Final Resul t Performing Organization Address City/[facility]/ZIP Co de Phone Number [facility] [address] [place] [address]. [address] * (ABNORMAL) Acetaminophen Level (10/06/2024 1:04 AM EDT) Acetaminophen Level <10(L) 10 - 30 ug/mL 10/06/2024 2:08 AM EDT [facility] Serum 10/06/2024 1:04 AM EDT 10/06/2024 1:30 AM EDT [facility] LAB BLOOD ORDERABLES Final Resul t Performing Organization Address [facility] Co de Phone Number [facility] [address] [facility]. [address] * Ethanol, Serum (10/06/2024 1:04 AM EDT) Ethanol <10 0 - 10 mg/dL 10/06/2024 2:08 AM EDT [facility] Serum 10/06/2024 1:04 AM EDT 10/06/2024 1:30 AM EDT [facility] LAB BLOOD ORDERABLES Final Resul t Performing Organization Address [facility] Co de Phone Number [facility] [address] [facility]. [address] * #2 Blood culture-Peripheral site 2 (10/06/2024 1:04 AM EDT) Culture Result No Growth After 5 Days [facility] Blood BLOOD SPECIMEN / Unknown 10/06/2024 1:04 AM EDT 10/06/2024 4:57 AM EDT Narrative [facility]ALTH LAB - 10/11/2024 5:05 AM EDT Suboptimal volume of blood received. Interpret results with caution. [employer] maría MICROBIOLOGY - GENERAL ORDERABLE S Final Result [facility] [address] * #1 Blood culture-Peripheral site 1 (10/06/2024 1:04 AM EDT) Culture Result No Growth After 5 Days [facility] Blood BLOOD SPECIMEN / Unknown 10/06/2024 1:04 AM EDT 10/06/2024 4:57 AM EDT Narrative [facility] - 10/11/2024 5:01 AM EDT Suboptimal volume of blood received. Interpret results with caution. Bisi Akana maría MICROBIOLOGY - GENERAL ORDERABLE S Final Result Performing Organization Address City/[facility]/ZIP Co de Phone Number [facility] [address] * Ammonia (10/06/2024 1:04 AM EDT) Ammonia 77 27 - 90 ug/dL 10/06/2024 2:00 AM EDT [facility] Plasma 10/06/2024 1:04 AM EDT 10/06/2024 1:30 AM EDT [facility] [employer] LAB BLOOD ORDERABLES Final Resul t Performing Organization Address City/[facility]/ZIP Co de Phone Number [facility] [address] * Thyroid Function [facility] (10/06/2024 1:04 AM EDT) TSH 0.84 0.45 - 4.12 uIU/mL 10/06/2024 2:20 AM EDT [facility] Serum 10/06/2024 1:04 AM EDT 10/06/2024 1:39 AM EDT us [facility] LAB BLOOD ORDERABLES Final Resul t Performing Organization Address [facility] de Phone Number [facility] [address] * (ABNORMAL) Protime-INR (10/06/2024 1:04 AM EDT) Protime 22.8(H) 12.1 - 15.1 seconds 10/06/2024 1:48 AM EDT [facility] INR 1.9(H) 0.9 - 1.1 10/06/2024 1:48 AM EDT [facility] Comment: RECOMMENDED THERAPEUTIC RANGES USING INR : Stable oral anticoagulant therapy: 2.0 - 3.0 Mechanical prosthetic heart valve: 2.5 - 3.5 Recurrent acute myocardial infarction: 2.5 - 3.5 Plasma 10/06/2024 1:04 AM EDT 10/06/2024 1:30 AM EDT us [facility] LAB BLOOD ORDERABLES Final Resul t Performing Organization Address [facility] Co de Phone Number [facility] [address] [facility]. [address] * Lactic Acid, STAT (10/06/2024 1:04 AM EDT) Lactate 1.2 0.5 - 2.2 mmol/L 10/06/2024 1:59 AM EDT [facility] Plasma 10/06/2024 1:04 AM EDT 10/06/2024 1:30 AM EDT [facility] LAB BLOOD ORDERABLES Final Resul t [facility] [address] [place] [address], [facility] * (ABNORMAL) CBC, STAT (10/06/2024 1:04 AM EDT) WBC 7.9 3.8 - 10.8 10E3/uL 10/06/2024 2:36 AM EDT [facility] RBC 2.76(L) 4.20 - 5.80 10E6/uL 10/06/2024 2:36 AM EDT [facility] Hemoglobin 9.9(L) 13.2 - 17.1 g/dL 10/06/2024 2:36 AM EDT [facility] Hematocrit 28.0(L) 38.5 - 50.0 % 10/06/2024 2:36 AM EDT [facility] MCV 101.5(H) 80.0 - 100.0 fL 10/06/2024 2:36 AM EDT [facility] MCH 35.7(H) 27.0 - 33.0 pg 10/06/2024 2:36 AM EDT [facility] MCHC 35.2 32.0 - 36.0 g/dL 10/06/2024 2:36 AM EDT [facility] RDW 17.9(H) 11.0 - 15.0 % 10/06/2024 2:36 AM EDT [facility] Platelets 58(L) 140 - 400 10E3/uL 10/06/2024 2:36 AM EDT [facility] Comment: Specimen checked for clots. None detected. Slide Reviewed for PLT Clumps. None Seen. MPV 8.2 7.5 - 11.5 fL 10/06/2024 2:36 AM EDT [facility] Whole Blood 10/06/2024 1:04 AM EDT 10/06/2024 1:31 AM EDT us Bisi Hernandez DO LAB BLOOD ORDERABLES Final Resul t [facility] [address] * (ABNORMAL) Comprehensive Metabolic Panel (10/06/2024 1:04 AM EDT) Sodium 127(L) 133 - 146 mmol/L 10/06/2024 2:05 AM T [facility] Potassium 4.5 3.5 - 5.3 mmol/L 10/06/2024 2:05 AM [facility] Chloride 99 98 - 110 mmol/L 10/06/2024 2:05 AM EDT [facility] CO2 18(L) 21 - 33 mmol/L 10/06/2024 2:05 AM [facility] Anion Gap 10 3 - 16 mmol/L 10/06/2024 2:05 AM [facility] BUN 59(H) 7 - 25 mg/dL 10/06/2024 2:05 AM [facility] Creatinine 3.54(H) 0.60 - 1.30 mg/dL 10/06/2024 2:05 AM [facility] Glucose 116(H) 70 - 100 mg/dL 10/06/2024 2:05 AM [facility] Calcium 9.0 8.6 - 10.3 mg/dL 10/06/2024 2:05 AM [facility] Total Bilirubin 14.8(H) 0.0 - 1.5 mg/dL 10/06/2024 2:05 AM [facility] AST 61(H) 13 - 39 U/L 10/06/2024 2:05 AM [facility] ALT 33 7 - 52 U/L 10/06/2024 2:05 AM [facility] Alkaline Phosphatase 174(H) 36 - 125 U/L 10/06/2024 2:05 AM [facility] Total Protein 5.2(L) 6.4 - 8.9 g/dL 10/06/2024 2:05 AM [facility] Albumin 3.3(L) 3.5 - 5.7 g/dL 10/06/2024 2:05 AM [facility] Osmolality, Calculated 282 278 - 305 mOsm/kg 10/06/2024 2:05 AM [facility] EGFR 21 10/06/2024 2:05 AM [facility] Comment:As of 2021, the estimated [...] LAB BLOOD ORDERABLES Final Resul t [facility] [address] documented in this encounter Visit Diagnoses [...] On Sun10/10/24 at 0730, For 1 dose 10/10/2024 9:14 AM EDT 2 g 25 [...] block, allergy to beta blockers., Starting on Sun10/09/24 at 1450, For 4 doses, Administer 2.5 [...] in sodium chloride 0.9 % 250 mL [id number] 1,000 mg, Intravenous, Administer over 60 Minutes, Once, Contact pharmacy if there is a question/concern of whether vancomycin should be given based on serum drug levels. Use [id number] Adapter - Mix Thoroughly Before Administration, Indication? Infection-Suspected, Site of diagnosed infections (select all that apply): Abdominal/Pelvic New Bag 10/08/2024 12:59 PM EDT 1,000 mg 250 mL/hr vancomycin (VANCOCIN) 1,500 mg in sodium chloride 0.9 % 250 mL [id number] 1,500 mg, Intravenous, Administer over 90 Minutes, Once, Contact pharmacy if there is a question/concern of whether vancomycin should be given based on serum drug levels. Use [id number] Adapter - Mix Thoroughly Before Administration, Indication? [...] movements a day 0820 (Given - Provider: Aun Wolff RN)1354 (Given - Provider: Anu Wolff RN)210 (Given [...] Wolff RN) 0938 (Given - Provider: Suzette Arciniega RN) ursodioL (ACTIGALL) capsule 300 mg 300 [...] documented as of this encounter Care Teams Loading Manager Relationship Specialty Start Date End Date Enedina Mcguire NP [address] [place] [address] [phone] PCP - General Internal Medicine 10/05/24 documented as of this encounter
--- OUTSIDE RECORDS SUMMARY | 2024-10-20 09:10 | XMS_ITS | Encounter Summary ---
Author Organization [facility] Address [facility] [place] [address] Care Team Providers Care Machine Setup Operator Name Role Phone Enedina Mcguire NP Primary Care Provider [phone] Source Comments This information has been disclosed [...] release of HIV test results or diagnoses. [id number] Encounter Details Date Type Department Care Team (Latest Contact Info) Description 10/20/2024 9:10 AM EDT - 10/20/2024 11:59 PM EDT Hospital Encounter [facility] Radiology [address] [place] [phone] System, Provider Not In Discharge Disposition: Home [...] Recorded In the past 12 months has [employer], gas, oil, or water [employer] threatened to shut off services in your [...] AM EDT 10/17/2024 naloxone (NARCAN) 4 mg/actuation [place] Apply 1 spray in one nostril if [...] documented as of this encounter Care Teams Machine Setup Operator Relationship Specialty Start Date End Date Enedina Mcguire NP [address] [place] [address] PCP - General Internal Medicine 10/05/24 documented as of this encounter
--- OUTSIDE RECORDS SUMMARY | 2024-10-20 09:10 | XMS_ITS | Encounter Summary ---
Author Organization [facility] Address [facility] [place] [address] Care Team Providers Care Teacher Of The Sight Impaired Name Role Phone Enedina Mcguire NP Primary Care Provider [phone] Source Comments This information has been disclosed [...] release of HIV test results or diagnoses. [id number] Encounter Details Date Type Department Care Team (Latest Contact Info) Description 10/20/2024 9:10 AM EDT - 10/20/2024 11:59 PM EDT Hospital Encounter [facility] Radiology [address] [place] [phone] System, Provider Not In Discharge Disposition: Home [...] Recorded In the past 12 months has [employer], gas, oil, or water [employer] threatened to shut off services in your [...] AM EDT 10/17/2024 naloxone (NARCAN) 4 mg/actuation [place] Apply 1 spray in one nostril if [...] documented as of this encounter Care Teams Teacher Of The Sight Impaired Relationship Specialty Start Date End Date Enedina Mcguire NP [address] [place] [address] PCP - General Internal Medicine 10/05/24 documented as of this encounter
--- OUTSIDE RECORDS SUMMARY | 2024-10-20 09:10 | XMS_ITS | Encounter Summary ---
Author Organization [facility] Address [facility] [place] [address] Care Team Providers Care Weatherization Administrator Name Role Phone Enedina Mcguire NP Primary Care Provider [phone] Source Comments This information has been disclosed [...] release of HIV test results or diagnoses. [id number] Encounter Details Date Type Department Care Team (Latest Contact Info) Description 10/20/2024 9:10 AM EDT - 10/20/2024 11:59 PM EDT Hospital Encounter [facility] Radiology [address] [place] [phone] System, Provider Not In Discharge Disposition: Home [...] Recorded In the past 12 months has [employer], gas, oil, or water [employer] threatened to shut off services in your [...] any time in the past 12 m [facility], were you homeless or living [...] AM EDT 10/17/2024 naloxone (NARCAN) 4 mg/actuation [place] Apply 1 spray in one nostril if [...] documented as of this encounter Care Teams Weatherization Administrator Relationship Specialty Start Date End Date Enedina Mcguire NP [address] [place] [address] PCP - General Internal Medicine 10/05/24 documented as of this encounter
--- OUTSIDE RECORDS SUMMARY | 2024-10-20 09:10 | XMS_ITS | Encounter Summary ---
Author Organization [facility] Address [facility] [place] [address] Care Team Providers Care Bartender Server Name Role Phone Enedina Mcguire NP Primary Care Provider [phone] Source Comments This information has been disclosed [...] release of HIV test results or diagnoses. [id number] Encounter Details Date Type Department Care Team (Latest Contact Info) Description 10/20/2024 9:10 AM EDT - 10/20/2024 11:59 PM EDT Hospital Encounter [facility] Radiology [address] [place] [phone] System, Provider Not In Discharge Disposition: Home [...] Recorded In the past 12 months has [employer], gas, oil, or water [employer] threatened to shut off services in your [...] AM EDT 10/17/2024 naloxone (NARCAN) 4 mg/actuation [place] Apply 1 spray in one nostril if [...] documented as of this encounter Care Teams Bartender Server Relationship Specialty Start Date End Date Enedina Mcguire NP [address] [place] [address] PCP - General Internal Medicine 10/05/24 documented as of this encounter
--- OUTSIDE RECORDS SUMMARY | 2024-10-20 09:10 | XMS_ITS | Encounter Summary ---
Author Organization [facility] Address [facility] [place] [address] Care Team Providers Care Grinder Needle Tip Name Role Phone nEedina Mcguire NP Primary Care Provider [phone] Source Comments This information has been disclosed [...] release of HIV test results or diagnoses. [id number] Encounter Details Date Type Department Care Team (Latest Contact Info) Description 10/20/2024 9:10 AM EDT - 10/20/2024 11:59 PM EDT Hospital Encounter [facility] Radiology [address] [place] [phone] System, Provider Not In Discharge Disposition: Home [...] Recorded In the past 12 months has [employer], gas, oil, or water [employer] threatened to shut off services in your [...] AM EDT 10/17/2024 naloxone (NARCAN) 4 mg/actuation [place] Apply 1 spray in one nostril if [...] documented as of this encounter Care Teams Grinder Needle Tip Relationship Specialty Start Date End Date Enedina Mcguire NP [address] [place] [address] PCP - General Internal Medicine 10/05/24 documented as of this encounter
--- OUTSIDE RECORDS SUMMARY | 2024-10-20 09:10 | XMS_ITS | Encounter Summary ---
Author Organization [facility] Address [facility] [place] [address] Care Team Providers Care Photostat Operator Name Role Phone Enedina Mcguire NP Primary Care Provider [phone] Source Comments This information has been disclosed [...] release of HIV test results or diagnoses. [id number] Encounter Details Date Type Department Care Team (Latest Contact Info) Description 10/20/2024 9:10 AM EDT - 10/20/2024 11:59 PM EDT Hospital Encounter [facility] Radiology [address] [place] [phone] System, Provider Not In Discharge Disposition: Home [...] Recorded In the past 12 months has [employer], gas, oil, or water [employer] threatened to shut off services in [...] time in the past 12 m [facility], were you homeless or living in a [...] AM EDT 10/17/2024 naloxone (NARCAN) 4 mg/actuation [place] Apply 1 spray in one nostril if [...] documented as of this encounter Care Teams Photostat Operator Relationship Specialty Start Date End Date Enedina Mcguire NP [address] [place] [address] PCP - General Internal Medicine 10/05/24 documented as of this encounter
--- OUTSIDE RECORDS SUMMARY | 2024-10-20 09:10 | XMS_ITS | Encounter Summary ---
Author Organization [facility] Address [facility] [place] [address] Care Team Providers Care Separator Operator Shellfish Meats Name Role Phone Enedina Mcguire NP Primary Care Provider [phone] Source Comments This information has been disclosed [...] release of HIV test results or diagnoses. [id number] Encounter Details Date Type Department Care Team (Latest Contact Info) Description 10/20/2024 9:10 AM EDT - 10/20/2024 11:59 PM EDT Hospital Encounter [facility] Radiology [address] [place] [phone] System, Provider Not In Discharge Disposition: Home [...] Recorded In the past 12 months has [employer], gas, oil, or water [employer] threatened to shut off services in your [...] AM EDT 10/17/2024 naloxone (NARCAN) 4 mg/actuation [place] Apply 1 spray in one nostril if [...] documented as of this encounter Care Teams Separator Operator [employer] Meats Relationship Specialty Start Date End Date Enedina Mcguire NP [address] [place] [address] PCP - General Internal Medicine 10/05/24 documented as of this encounter
--- OUTSIDE RECORDS SUMMARY | 2024-10-22 14:15 | XMS_ITS | Encounter Summary ---
Author Organization [facility] Address [address] [place] [address] Care Team Providers Care Digital Sales Manager Name Role Phone Soco Patel APRN Primary Care Provid er Reason for Visit * Reason Comments Neck Pain Follow-up Encounter Details Date Type Department Care Team (Late st Contact Info) Description 10/22/2024 2:15 PM EDT Office Visit [facility] [address] [place] [phone] Vazquez Christie PA-C [address] [place] [address] Cervical radiculopathy (Primary Dx); Cervical spondylosis without [...] alcohol) 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 [facility] Utilities Answer Date Recorded In the past 12 months has [employer], gas, oil, or water [employer] threatened to shut off services in your [...] Brief Depression Severity Measure Score 0 10/02/2022 [facility] - [...] GED or equivalent No 07/09/2024 Preferred Language Bermudian 07/09/2024 PHQ-2 Answer Date Recorded Patient Health [...] hospitalizedapproximately 2 weeks ago at the [facility] due to confusion and lethargy secondary to [...] Surgeon: Presley Montes De Oca MD; Location: [facility]; Service: Gastroenterology; Laterality: N/A; ENDOSCOPY N/A 07/29/2022 Procedure: ESOPHAGOGASTRODUODENOSCOPY; Surgeon: Presley Montes De Oca MD; Location: [facility]; Service: Gastroenterology; Laterality: N/A; WITH APC [...] goals: Follow-up 1 month for medication management [facility] Management Vazquez Christie PA-C documented in this encounter Plan of Treatment Upcoming Encounters Date Type Department Care Team (Late st Contact Info) Description 01/01/2025 2:15 PM EDT Office Visit [facility] [address] [facility] [address] [place] [address] Vazquez Christie PA-C [address] [facility] [address] [place] [address] Scheduled Orders Name Type Priority [...] as of this encounter Care Teams Digital Sales Manager Relationship Specialty Start Date End Date Soco Patel APRN [address] [facility] [address] [facility] [address] [place] [address] PCP - General Family Medicine 10/22/24 10/26/24 documented as of this encounter
--- OUTSIDE RECORDS SUMMARY | 2024-10-25 20:46 | XMS_ITS | Encounter Summary ---
Author Organization [facility] Address [address] [place] [address] Care Team Providers Care Active Directory Administrator Name Role Phone Enedina Mcguire NP Primary Care Provider + [phone] Alicia Pantoja RN Unavailable Unavail able Source [...] release of HIV test results or diagnoses. [id number] Reason for Referral * Surgical (Routine) - Authorized Specialty Diagnoses / Procedures Referred By Shane hernadez Referred To Contact Surgery Diagnoses Acute kidney injury superimposed on CKD (CMS-HCC) Procedures Case request operating room: TRANSPLANT KIDNEY with bile duct reconstruction Sveta Judge MD [address] [facility] [address] [place] [address] Phone: tel: fax: Referral ID Status Reason Start Date Expiration Date V isits Requested Visits Authorized [id number] Authorized 10/26/2024 04/24/2025 1 1 Reason for Visit * Auth/Cert (Routine) Specialty Diagnoses / Procedures Referred By Shane hernadez Referred To Contact Surgical Intensive Care Diagnoses Liver transplant recipient (CMS-HCC) cirrhosis and CKD Procedures LIVER-KIDNEY TRANSPLANT [facility] [address] [place] [address] Phone: tel: Referral ID Status Reason Start Date Expiration Date Visits Re quested Visits Authorized [id number] 1 1 Encounter Details Date Type Department Care Team (Latest Contact Info) Description 10/25/2024 8:46 PM EDT - 11/02/2024 6:23 PM EDT Hospital Encounter [address] [place] [address] Harvey Domínguez III, MD [address] [facility] [address] [place] [address] Lydia Sanchez MD [address] [facility] Liver/[place] [address] Acute kidney injury superimposed on [...] Recorded In the past 12 months has [employer], [employer], or water [employer] threatened to shut off services in your [...] in a nursing home (including now)? No 10/29/2024 Yearly Questionnaire [...] Plata MD - 11/02/2024 2:04 PM EDT [facility] Liver Transplant Surgical Service Inpatient Discharge Summary Patient: Blair Gilbert : 1985 CSN: [id number] Date of Admission: 10/25/2024 Date of Discharge: [...] Case IDs Date Procedure Surgeon Location Status [id number] 10/25/24 LIVER TRANSPLANT Harvey Domínguez III, MD OR Comp [id number] 10/27/24 Donor Kidney Transplant , Back Bench [...] EXAM: US ABDOMEN LIMITED EXAM: US DUPLEX [id number]-QPYDDY-UFRXPUX COMPLETE INDICATION: Post-op liver transplant COMPARISON: None [...] visualized secondary to poor acoustic windows. The [place] right kidney measures 11.6 cm in length. [...] 30 tablet Refills: 0 naloxone 4 mg/actuation Owen Commonly known as: NARCAN Apply 1 spray [...] Your Medications These medications were sent to [facility] NAA [address] - [address] [address] mycophenolate 250 mg capsule tacrolimus 1 MG capsule These medications were sent to [facility] [address] [facility] [address] Hours: Sunday - Sunday: 8:00AM - 6:00PM [...] Case IDs Date Procedure Surgeon Location Status [id number] 10/25/24 LIVER TRANSPLANT Harvey Domínguez III, MD OR Comp [id number] 10/27/24 Donor Kidney Transplant , Back Bench [...] discharge. NEURO/PAIN - Patient placed on Dilaudid MARKETING COPYWRITER once extubated, then transitioned to multi-modal pain [...] stent is scheduled for removal on 11/25 [facility] - PT/OT evaluated patient and recommended Home PT/OT, outpatient PT/OT only available. ENDO - A1C is 5.0. Pt was not on diabetic regimen prior to arrival. Patient developed steroid-induced hyperglycemia 2/2 steroid regimen. Discharged home on the following regimen: HDSSI. Patient met w/ inclusion paraeducator prior to discharge. HEME - Post-operatively, monitored [...] Patient and family received post-transplant education from maintenance coordinator as well as medication teaching from [...] Department Center 11/04/2024 8:40 AM LTRA SURGERY, [facility] LTRA HOX [facility] 11/04/2024 10:10 AM LTRA [facility]NAL [facility] LTRA HOX HOX 11/25/2024 9:00 AM NAA Merida [facility] URO MAB MAB 12/02/2024 2:00 PM Bossman Huffman MD [facility] MARIANGEL [facility] M[facility] 02/25/2025 10:50 AM Bruno Gonzalez MD KTSP HOX HOX Kenyettafahad Hartman, MS-4 [facility] SHAY PLATA MD 11/02/2024 12:50 PM Cosigned [...] up appointments. Diet: Regular diet Drain/Dressing/Wound Care: [place] will be removed in clinic approximately 3-4 [...] kept under 2 gm/day. Please discuss withyour social work coordinator if you have any question about appropriate dose to take. Other Instructions: Call post-liver transplant clinic with questions [phone] or call [facility] at [phone] and ask for the liver maintenance coordinator application packaging specialist if you experience any of the following: [...] Department Center 11/04/2024 8:40 AM LTRA SURGERY, [facility] LTRA [facility] 11/04/2024 10:10 AM LTRA [facility]NAL [facility] LTRA [facility] 11/25/2024 9:00 AM NAA Merida [facility]RO MAB MAB 12/02/2024 2:00 PM Bossman Huffman MD [facility] MARIANGEL MAB MAB 02/25/2025 10:50 AM Bruno [facility] documented in this encounter Medications at Time [...] AM EDT 10/30/2024 naloxone (NARCAN) 4 mg/actuation Owen Apply 1 spray in one nostril if [...] 11/02/2024 5 blood sugar diagnostic (GLUCOSE BLOOD) [facility] Use to test blood sugar up to 4 times a day. 100 strip 11 11/02/2024 10:20 AM EDT 10/27/2024 5 blood-glucose meter (TRUE METRIX GLUCOSE METER) [facility] Use to test blood sugar up to [...] 28 tablet 11/02/2024 10:20 AM EDT 10/31/2024 insulin aspart, [...] EDT 10/27/2024 5 lancets (ACCU-CHEK SOFTCLIX LANCETS) Misc Use to test blood sugar up [...] tacrolimus and mycophenolate which were dispensed through [facility] per insurance requirements. Patient's confirms [...] Expected caregiver involvement?: is primary med digital learning platforms manager Need for additional education in clinic?: routine reinforcement only Future medications to be obtained from, if known (select one): Tac/MMF to be filled from [facility] Financial concerns (if any): [...] Disp-15 mL, R-2 lancets (ACCU-CHEK SOFTCLIX LANCETS) [facility] Use to test blood sugar up to [...] Disp-30 tablet, R-0 naloxone (NARCAN) 4 mg/actuation Owen Apply 1 spray in one nostril if [...] Solid Organ Transplant Clinical Specialist Contact via [employer] Secure Chat * Froylan Hendrickson MD - 11/01/2024 8:04 AM EDT Liver Transplant Surgery Progress Note Name: Blair Gilbert CSN: [id number] Date: 11/01/2024 8:06 AM OR Date: 10/25/2024 [...] at 10/31/2024 4:38 PM EDT US Duplex Zay-Tnr-Zjvgbmn Comp Result Date: 10/31/2024 IMPRESSION: RIGHT UPPER [...] Sanchez MD PhD Transplant Surgery * Ben Garcia Abhishek, RD - 10/31/2024 3:24 PM EDT TXP - Follow Up [facility] Medical Nutrition Therapy Transplant Brief [...] Boost VHC- very high calorie protein supplement ([facility] only) Pertinent Information: Pt seen [...] Based on DBW of 93.1 kg Kcals/day: 7132-0930 (25-30 kcals/kg) Protein g/day: 140-190 (1.5-2.0 g/kg) [...] 1 packet of ProSource TF20 TID Kingston eWiss RD, LD Clinical Dietitian - Solid Organ Transplant Contact via [employer]se[employer] Chat * Keon Dobson - 10/31/2024 2:35 PM EDT [facility] Spiritual Care Volunteer Visit PATIENT NAME: Blair Gilbert ROOM:8025/U8025 Protestant Affiliation:Adventism Blair Gilbert was visited by a volunteer today. No needs requiring a visit from a staff vp strategy were expressed at that time. Care Provided: Communion, Prayer/ blessing Please page our service at [phone] as needs arise for patient and/or family. Fr Dean Dobson Adventism vp strategy Spiritual Care Dept * Brittany Horne PT [...] transplant recipient (CMS-HCC) [Z94.4] Date: 10/31/2024 Room: 8025/80 Reviewed Pertinent hospital course: Yes Hospital Course [...] issued by OT: Long-handled sponge, Sock aid, Certified Indoor Environmentalist, Other (comment) Equipment issued by OT comment: leg boat dock operator Assessment Assessment: Decreased ADL status, Decreased [...] IADL task (Goal met and continued 10/31) Seedling Puller Goal : Pt will complete bathing assessment and transfer custodial goal to be met in: 2 weeks [...] Decompensated cirrhosis ([facility]) Acute [place] injury superimposed on [place] Alcohol use [...] [place]) C Diff Diarrhea C. difficile diarrhea Neck [...] shifts: Date 10/30/24699 - 10/31/2465810/31/24699 - 11/01/24 06 Shift 4126-7435 7098-5662 7258-6776 24 Hour Total 3326-3432 3192-4317 4879-3943 24 Hour Total INTAKE P.O. 240 240 P.O. 240 240 Shift Total(mL/kg) 240(1.9) 240(1.9) OUTPUT Urine(mL/kg/hr) 1850(1.8) 600(0.6) 600(0.6) 3050(1) 350 350 Urine 800 768 642 6945 350 350 Urine Occurrence 2 x 2 [...] with further concerns Lavell Kramer MD 10/31/[phone] * Priti Geiger CNP - 10/31/2024 10:06 AM EDT Liver Transplant Surgery Progress Note Name: Blair Gilbert CSN: [id number] Date: 10/31/2024 10:06 AM OR Date: 10/25/2024 [...] TID AC levothyroxine 75 mcg Oral DAILY 06 lidocaine 2 patch Transdermal Daily 09 loratadine 10 mg Oral Daily 0900 melatonin [...] 10/28/24 1109 LACTATE 0.3* Imaging US Duplex Vuz-Igk-Koscqzb Comp Result Date: 10/28/2024 IMPRESSION: ABDOMINAL ULTRASOUND [...] today HSQ IS: tacro, mmf, prednisone Lydia Snachez MD PhD Transplant Surgery * Caron SantosEZEKIEL - 10/31/2024 9:30 AM EDT Images from the original note were not included. Transplant Nephrology Progress Note Patient: Blair Gilbert [id number] 8025/U8025 Date of Admit: 10/25/2024. 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 Lauren Santos, DNP, INTERNAL CONSULTANT, PAMPHLET DISTRIBUTOR- Transplant Nephrology [phone] Preferred contact: secure chat The HPI, ROS, physical exam, test results, and assessment & plan were reviewed and copied forward (with edits) from a note written by on 10/30/24. I have reviewed and updated [...] DAILY 0600 lidocaine 2 patch Transdermal Daily 09 loratadine 10 mg Oral Daily 0900 melatonin [...] 0659 10/30/24 07 - 10/31/24 0659 Shift 3117-3536 3252-9523 0105-1931 24 Hour Total 0606-4644 2852-9833 8887-1962 24 Hour Total INTAKE P.O. 240 240 480 P.O. 240 240 480 IV Piggyback 87.2 87.2 Volume (mL) (micafungin (MYCAMINE) 50 mg in sodium chloride 0.9 % 100 mL Xuxj1Phw IVPB) 87.2 87.2 Shift Total(mL/kg) 240(2) 327.2(2.7) 567.2(4.4) OUTPUT Urine(mL/kg/hr) 600(0.6) 1175(1.2) 450(0.4) 2225(0.7) 550 550 Output (mL) (IUC (Berkowitz) Triple-lumen (3-Way) 18 Fr.) 600 3113 167 7130 550 550 Drains 175 245 100 520 [...] month of prophylaxis Lavell Kramer MD 10/30/[phone] * Priti Geiger CNP - 10/30/2024 10:36 AM EDT Liver Transplant Surgery Progress Note Name: Blair Gilbert CSN: [id number] Date: 10/30/2024 10:37 AM OR Date: 10/25/2024 [...] 1109 LACTATE 0.5 0.3* Imaging US Duplex Ijn-Zjp-Vypnkol Comp Result Date: 10/28/2024 IMPRESSION: ABDOMINAL ULTRASOUND [...] MD PhD Transplant Surgery * Caron Santos, LUMP ROOM SUPERVISOR - 10/30/2024 10:00 AM EDT Images from the original note were not included. Transplant Nephrology Progress Note Patient: Blair Gilbert [id number] 8025/U8025 Date of Admit: 10/25/2024. 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 Lauren Santos, DNP, INTERNAL CONSULTANT, PAMPHLET DISTRIBUTOR- Transplant Nephrology [phone] Preferred contact: secure chat The HPI, ROS, [...] EDT Pt seen, examined, and discussed with LUMP ROOM SUPERVISOR on 10/30/2024. reviewed the chart including the labs and imaging studies. My additional comments below. 39 y.o. 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 Last BM Date: (well logging captain). Admit Weight: 270 lb (122.5 kg) [...] Based on DBW of 93.1 kg Kcals/day: 3498-2415 (25-30 kcals/kg) Protein g/day: 140-190 (1.5-2.0 g/kg) [...] Dietitian - Solid Organ Transplant Contact via Forseva Chat * Anita Crystal, PT - 10/29/2024 2:04 PM EDT Physical Therapy Initial Assessment Name: Blair Gilbert : 1985 Attending Physician: Harvey Domínguez III, MD Admission Diagnosis: Liver transplant recipient (CMS-HCC) [Z94.4] Date: 10/29/2024 Room: [place] [address] [address] Reviewed Pertinent hospital course: Yes Hospital Course [...] with functional mobility at: 4/10 or less Care Home Goal : Pt will ambulate 250' mod [...] on CKD ([facility]) Alcohol use disorder Metabolic encephalopathy Hypertension Other hyperlipidemia Thrombocytopenia ([facility]) Renal mass, left Abdominal pain Hypokalemia CKD (chronic kidney disease) stage 4, GFR 15-29 ml/min ([facility]) Metabolic acidosis with normal anion gap and bicarbonate losses GERD (gastroesophageal reflux disease) Hypothyroidism Itching Anemia BRBPR (bright red blood per rectum) SBP (spontaneous bacterial peritonitis) ([facility]) C Diff Diarrhea C. difficile diarrhea Neck pain with history of cervical spinal surgery * Shanel Pabon, OT - 10/29/2024 1:23 PM EDT Occupational Therapy Initial Assessment Name: Blair Gilbert : 1985 Attending Physician: Harvey Domínguez III, MD Admission Diagnosis: Liver transplant recipient ([facility]) [Z94.4] Date: 10/29/2024 Room: [place] [address] [address] Reviewed Pertinent hospital course: Yes Hospital Course [...] Intervention(s): Ambulation/increased activity;Repositioned Therapist reported pain to: machine bookkeeper Oxygen Supplemental Oxygen Supplemental Oxygen: None (Room [...] distance ambulation in prep for IADL task Care Home Goal : Pt will complete bathing assessment and transfer custodial goal to be met in: 2 weeks [...] (CMS-HCC) Acute kidney injury superimposed on CKD ([facility]) Alcohol use disorder Metabolic encephalopathy Hypertension Other hyperlipidemia Thrombocytopenia ([facility]) Renal mass, left Abdominal pain Hypokalemia CKD (chronic kidney disease) stage 4, GFR 15-29 ml/min ([facility]) Metabolic acidosis with normal anion gap and bicarbonate losses GERD (gastroesophageal reflux disease) Hypothyroidism Itching Anemia BRBPR (bright red blood per rectum) SBP (spontaneous bacterial peritonitis) ([facility]) C Diff Diarrhea C. difficile diarrhea Neck pain with history of cervical spinal surgery * Caron Santos CNP - 10/29/2024 10:30 AM EDT Images from the original note were not included. Transplant Nephrology Progress Note Patient: Blair Gilbert [id number] SICU-28/[facility] Date of Admit: 10/25/2024. LOS: 4 days. 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 Lauren Santos, SAMSON, INTERNAL CONSULTANT, PAMPHLET DISTRIBUTOR- Transplant Nephrology [phone] Preferred contact: secure chat The HPI, ROS, [...] EDT Pt seen, examined, and discussed with LUMP ROOM SUPERVISOR on 10/29/2024. reviewed the chart including the labs and imaging studies. My additional comments below. 39 y.o. 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 S/p SLK 10/25-10/26 Has great UOP 4.2L; 720 drain output Aaron Gonzalez MD, MEd, FASN * Kenyetta Hartman - 10/29/2024 10:07 AM EDT Liver Transplant Surgery Progress Note Name: Blair Gilbert CSN: [id number] Date: 10/29/2024 10:08 AM OR Date: 10/25/2024 [...] potassium chloride (KCl) 20 mEq Intravenous Q1H [facility] sulfamethoxazole-trimethoprim 1 tablet Oral Daily 0900 tacrolimus [...] 30* 29* 41* Recent Labs 10/27/24171210/28/24 0005 10/28/2441210/28/24 11010/29/24 0507 AST 62* 60* [...] LACTATE 0.4* 0.5 0.3* Imaging US Duplex Qex-Nbj-Dxjvwba Comp Result Date: 10/28/2024 IMPRESSION: ABDOMINAL ULTRASOUND [...] at 10/27/2024 10:38 AM EDT US Duplex Wnj-Tlq-Ysiljlz Comp Result Date: 10/27/2024 IMPRESSION: RIGHT UPPER [...] SQH, SCDs DISPO: floor KENYETTA HARTMAN, MS4 [facility] Surgery 10:08 AM 10/29/2024 Cosigned by [...] 3 shifts: Date 10/28/24699 - 10/29/2465810/29/24699 - 10/30/2459 Shift 6697-2569 6487-9713 3503-8081 24 Hour Total 4971-3598 2650-9479 0320-8403 24 Hour Total INTAKE P.O. 240 0 [...] IV infusion) 253.9 374.7 775.6 1404.2 Blood 4615 735 4129 Albumin 750 750 Volume (Transfuse RBC Transfusion Rate: Per dept routine) 310 310 Volume (Transfuse RBC Transfusion Rate: Per dept routine) 271 271 IV Piggyback 918.4 886 53 0745.4 Volume (mL) (micafungin (MYCAMINE) 50 mg in sodium chloride 0.9 % 100 mL Gliz1Olc IVPB) 99.9 99.9 Volume (mL) (albumin human [...] month of prophylaxis Lavell Kramer MD 10/29/[phone] * John Moreno MD - 10/29/2024 6:47 AM EDT SURGICAL ICU PROGRESS NOTE 10/29/2024 6:47 AM Name: Blair Gilbert CSN: [id number] HPI: Blair Gilbert is a 39 y.o. [...] to 4 times a day. DEXCOM G7 PROGRAM COORDINATOR Misc Use reader as directed. DEXCOM G7 [...] times a day. naloxone (NARCAN) 4 mg/actuation Owen Apply 1 spray in one nostril if [...] 37 37 35 PO2ART 245* 182* 92 ESV8SEL 22 21* 21* BEART -4.2* -4.8* -4.6* [...] at baseline or with provocation, shows no fcgrf-vo-zpbe atrial level shunt. - Pulmonary arteries: Systolic [...] Home pantoprazole 40mg daily, continue Last BM: INDUSTRIAL YARD BRAKE COUPLER - suppository today Bowel regimen: Miralax today, [...] results for input(s): TEGANGLE , TEGKTIME , PMCBHQZG85 , TEGMAXAMPL , TEGRTIME , CBMZ in [...] 3% ENDOCRINE Glucose range: Lab 10/29/24 0507 10/28/24 2003 10/28/24 1731 10/28/24 1254 10/28/24 1109 10/28/24 0907 [...] in sodium chloride 0.9 % 100 mL Obde1Kbl IVPB 50 mg Every 24 hours 10/27/2024 -- Admin Instructions: PROTECT FROM LIGHT FLUSH LINE w/NSS PRIOR TO ADMINISTRATION Use Kzbs8Ubl Adapter - Mix Thoroughly Before Administration Route: [...] BID Continuous Infusions: HYDROmorphone 6 mg/30 mL MARKETING COPYWRITER norepinephrine 4 mcg/min (10/27/24 2318) sodium chloride [...] last 3 shifts: Date 10/27/24 07 - 10/28/24 0659 10/28/24 07 - 10/29/24 0659 Shift 1449-2121 3572-6238 7902-8445 24 Hour Total 2281-4276 7400-5105 0783-7741 24 Hour Total INTAKE P.O. 0 120 [...] in sodium chloride 0.9 % 100 mL Qjwk6Ilw IVPB) 100 100 Volume (mL) (albumin human 5%) 126 126 Volume (mL) (potassium chloride (KCl)/Sterile water 50 mL 20 mEq/50 mL IVPB 20 mEq) 100 100 Volume (mL) (AMPicillin 1 g in sodium chloride 0.9% 100 mL IVPB (Xciu4Pki)) 100.1 57 42.9 200 Volume (mL) (mycophenolate (CELLCEPT) 500 mg in dextrose 5% in water (D5W) 50 mL IVPB) 50 5.3 55.3 Shift Total(mL/kg) 2079.3(17) 1161(9.5) 787.3(6.4) 4027.6(32.9) OUTPUT Urine(mL/kg/hr) 2195(2.2) 1000(1) 900(0.9) 4095(1.4) 490 490 Urine 360 360 Output (mL) (IUC (Berkowitz) Triple-lumen (3-Way) 18 Fr.) 1835 2356 332 0155 490 490 Emesis/NG output 50 50 Drainage [...] CORPUSCULAR VOLUME 87.8 PLATELETS 38* Lab 10/28/24 041 SODIUM 142 POTASSIUM 3.5 CHLORIDE 111* CO2 [...] month of prophylaxis Lavell Kramer MD 10/28/[phone] * Caron Santos CNP - 10/28/2024 9:00 AM EDT Images from the original note were not included. Transplant Nephrology Progress Note Patient: Blair Gilbert [id number] SICU-28/USIC-28 Date of Admit: 10/25/2024. 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 Lauren Santos, DNP, INTERNAL CONSULTANT, PAMPHLET DISTRIBUTOR- Transplant Nephrology [phone] Preferred contact: secure chat The HPI, ROS, [...] Surgery Progress Note Name: Blair Gilbert CSN: [id number] Date: 10/28/2024 11:05 AM OR Date: 10/25/2024 - 10/27/2024 Subjective: 1 Day Post-Op Received one unit pRBCs overnight On low dose levo this morning Increasing tachycardia Reports worsening pain, on MARKETING COPYWRITER Tolerated sips of clears No nausea/vomiting, no [...] Oral BID Continuous: HYDROmorphone 6 mg/30 mL MARKETING COPYWRITER norepinephrine Stopped (10/28/24 0637) sodium chloride 0.9 [...] at 10/27/2024 10:38 AM EDT US Duplex Pej-Tor-Bxtpzao Comp Result Date: 10/27/2024 IMPRESSION: RIGHT UPPER [...] [Z94.4] Neuro: - Multimodal pain control: dilaudid MARKETING COPYWRITER, tylenol, robaxin. PRN dilaudid for breakthrough CV: [...] SCDs DISPO: SICU SHAY PLATA MD, MS4 [facility] General Surgery 11:05 AM 10/28/2024 Cosigned [...] 10/28/2024 6:17 AM Name: Blair Gilbert CSN: [id number] HPI: Blair Gilbert is a 39 y.o. [...] to 4 times a day. DEXCOM G7 PROGRAM COORDINATOR Misc Use reader as directed. DEXCOM G7 [...] times a day. naloxone (NARCAN) 4 mg/actuation Owen Apply 1 spray in one nostril if [...] Oral BID Continuous: HYDROmorphone 6 mg/30 mL MARKETING COPYWRITER insulin regular in 0.9 % sodium chloride [...] 37 37 35 PO2ART 245* 182* 92 KTA0ARV 22 21* 21* BEART -4.2* -4.8* -4.6* [...] at baseline or with provocation, shows no ddtgw-gl-bgof atrial level shunt. - Pulmonary arteries: Systolic [...] while intubated,convert to PO today Last BM: INDUSTRIAL YARD BRAKE COUPLER Bowel regimen: Miralax today, hold senna til [...] ml IV Fluids: HYDROmorphone 6 mg/30 mL MARKETING COPYWRITER insulin regular in 0.9 % sodium chloride, [...] results for input(s): TEGANGLE , TEGKTIME , XFQLTVSS45 , TEGMAXAMPL , TEGRTIME , CBMZ in [...] in sodium chloride 0.9% 100 mL IVPB (Wxwh6Vhp) (Completed) 1 g Every 6 hours scheduled 10/26/2024 10/28/2024 Admin Instructions: Dosage may need to be adjusted for renal dysfunction. Full dose is 1g IV q6h Use Cgdc2Jbr Adapter - Mix Thoroughly Before Administration Notes to Pharmacy: On stock order lister estimated creatinine clearance is 35.9 mL/min (A) [...] in sodium chloride 0.9 % 100 mL Orjb5Fhi IVPB 50 mg Every 24 hours 10/27/2024 -- Admin Instructions: PROTECT FROM LIGHT FLUSH LINE w/NSS PRIOR TO ADMINISTRATION Use Dtro2Dwq Adapter - Mix Thoroughly Before Administration Route: [...] R IJ Mac Arterial Line? R radial Greenbush Urinary Catheter? Berkowitz - Reason: Adequate I/O [...] reconstructive surgery Leida M, Prasad N, Elizabeth MACDONALD, et al. Completion of the Updated Caprini [...] the Caprini Risk Score of 10 and [facility] transplant protocol, I recommend discharging on [...] Solid Organ Transplant Clinical Specialist Contact via Forseva Secure Chat Preferred O. [phone] * Chinedu Almeida RRT - 10/27/2024 1:10 [...] PCO2 37 10/27/2024 PO2ART 245 (H) 10/27/2024 JNA6KCJ 22 10/27/2024 BEART -4.2 (L) 10/27/2024 NLU5LLB 96.5 10/27/2024 T3EICDWP 100 10/27/2024 Based on this SBT assessment [...] Surgery Progress Note Name: Blair Gilbert CSN: [id number] Date: 10/27/2024 11:40 AM OR Date: 10/25/2024 - 10/27/2024 Subjective: * Day of Surgery * Remains intubated in SICU Sedated but appropriately nods to questions No acute distress Objective: BP 100/48 Pulse 89 Temp 99 ??F (37.2 ??C) (Drifting) Resp 9 Ht 6' 4 (1.93 m) [...] at 10/27/2024 10:38 AM EDT US Duplex Fwj-Eox-Wmnuppv Comp Result Date: 10/27/2024 IMPRESSION: RIGHT UPPER [...] SQH, SCDs DISPO: SICU KENYETTA HARTMAN, MS4 [facility] Surgery 11:40 AM 10/27/2024 [1] Patient Active Problem List Diagnosis Decompensated [place] Acute kidney injury superimposed on CKD [place] Alcohol use [...] [place]) C Diff Diarrhea C. difficile diarrhea Neck [...] 10/27/2024 7:16 AM Name: Blair Gilbert CSN: [id number] HPI: Blair Gilbert is a 39 y.o. [...] Irving Matta MD; Location: CARDIAC CATH LABS; Service: Cath; Laterality: N/A; Home Medications Medication Sig Taking? [...] in the morning and at bedtime. lancets [facility] Use to test blood sugar up to 4 times a day. Dx: 9.65. Brand per pharmacy / insurance preference. methocarbamoL (ROBAXIN) 500 MG tablet Take 1 tablet (500 mg total) by mouth 3 times a day. mycophenolate (CELLCEPT) 250 mg capsule Take 2 capsules (500 mg total) by mouth 2 times a day. naloxone (NARCAN) 4 mg/actuation Owen Apply 1 spray in one nostril if [...] (10/27/2412) Recent Labs 10/26/24 0610 10/26/24 1048 10/27/24 0013 PHART 7.27* 7.37 7.32* PCO2 47* 36 37 PO2ART 127* 91 137* JYQ2VDU 21* 22 20* BEART -5.4* -3.9* -6.4* [...] at baseline or with provocation, shows no odsks-ya-boby atrial level shunt. - Pulmonary arteries: Systolic [...] IV pantoprazole while intubated, NPO Last BM: INDUSTRIAL YARD BRAKE COUPLER Bowel regimen: Senna/Miralax when able Nausea: Zofran [...] 10/27/2024 0715 Gross per 24 hour Intake 56213.82 ml Output 7060 ml Net 6224.82 ml [...] - Has never required dialysis - Continue berkwoitz SKIN/MUSCULOSKELETAL Exam: Warm, dry; no significant edema [...] results for input(s): TEGANGLE , TEGKTIME , VQIGOIIL85 , TEGMAXAMPL , TEGRTIME , CBMZ in [...] in sodium chloride 0.9% 100 mL IVPB (Rlzh8Wox) 1 g Every 6 hours scheduled Admin Instructions: Dosage may need to be adjusted for renal dysfunction. Full dose is 1g IV q6h Use Pvip4Gof Adapter - Mix Thoroughly Before Administration Notes to Pharmacy: On stock order lister estimated creatinine clearance is 35.9 mL/min (A) (based on SCr of 3.87 mg/dL (H)). Route: Intravenous Linked Group 1: Placed in And Linked Group cefTRIAXone (ROCEPHIN) 2 g in sodium chloride 0.9 % 100 mL Rlec9Pcj Continuous - One Step Medications Only 10/27/2024 [...] Agitation Sedation Scale: -2 Overall CAM-ICU : ([facility]) A/P: - ADDY # Mood [...] R IJ Mac Arterial Line? R radial Greenbush Urinary Catheter? 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 naloxone (NARCAN) 4 mg/actuation Owen Apply 1 spray in one nostril if [...] Low Risk (07/09/2024) Received from [facility] Overall Financial Resource Strain (CARDIA) Difficulty [...] No Physical Activity: Unknown (07/14/2024) Received from [facility] Exercise Vital Sign Days of Exercise per Week: Patient unable to answer Minutes of Exercise per Session: Not on file Stress: Patient Unable To Answer (07/14/2024) Received from [facility] [employer] of Occupational Health - Occupational Stress Questionnaire Feeling of Stress : Patient unable to answer Social Connections: Patient Unable To Answer (07/14/2024) Received from [facility] Social Connection and Isolation Panel [NHANES] Frequency of Communication with Friends and Family: Patient unable to answer Frequency of Social Gatherings with Friends and Family: Patient unable to answer Attends Protestant Services: Patient unable to answer Active Member [...] admitted to SICU post-op. LEANDRA OG MD [facility] Surgery Liver Transplant Pager: [phone] 8:24 PM 10/25/2024 Cosigned by Harvey [...] Name: Blair Gilbert Date: 1985 Billing #: [id number] Date of Procedure: 10/25/2024 Diagnosis: End Stage Renal Disease Procedure: 1. Donor Kidney Transplant 2. Back Bench Preparation Donor Kidney 3. Baseline Kidney transplant biopsy 4. Insertion of Indwelling Stent 5. Removal of Perihepatic packing Surgeons * Flaquito Ba MD Child Protective Investigator MD Shayan Findings: Low Hockey stick incision [...] donor was ABO O and UNOS ID [id number], Match Run [id number] (K). This donor was a Donor after [...] was then wanded with the lap detection rehab care assistant. The incision was ex tented 2 [...] to the external iliac vein of the recipient using 5-0 Prolene. A bulldog clamp was placed on the renal vein. An arteriotomy was then made and extended with a 4-0 punch. The renal artery was anastomosed end-to-side to the external iliac arteryof the recipient using as well as 5-0 [...] and closure. Flaquito Ba MD Transplant Surgeon marketing planner * Flaquito Ba MD - 10/27/2024 6:15 AM EDT TRANSPLANT KIDNEY with bile duct reconstruction Brief Op Note Blair Gilbert 10/27/2024 Pre-op Diagnosis: Acute kidney injury superimposed on CKD (CMS-HCC) [N17.9, N18.9] Post-op Diagnosis: same Procedure(s): TRANSPLANT KIDNEY Surgeon(s): MD Harvey Washington III, MD Anesthesia: General Endotracheal Staff: Gray Mixing Operator: Chinedu Quinn RN Scrub Person: ST Angela Fellow: Kemar Sahni MD 2nd Gray Mixing Operator: Marty Clark RN 3rd Gray Mixing Operator: Candis Mcdaniel RN FINDINGS Berkowitz 3 day Drains: Intraabdominal (perihepatic) UNOS ID [id number], Match Run [id number] Kid WIT 27 min Kid CIT 33 [...] (Berkowitz) Triple-lumen (3-Way) 18 Fr. (Active) Status [place] Drainage 10/26/241999 Collection Container Standard drainage bag [...] Washington III, MD Anesthesia: General Endotracheal Staff: Gray Mixing Operator: Chinedu Quinn RN Relief Gray Mixing Operator: Michela Amos RN Relief Scrub: Stephani Blake RN Scrub Person: ST Angela Fellow: Kemar Sahni MD 2nd Gray Mixing Operator: Marty Clark RN 3rd Gray Mixing Operator: Candis Mcdaniel RN Estimated Blood Loss: 300 [...] (Berkowitz) Triple-lumen (3-Way) 18 Fr. (Active) Status [place] Drainage 10/26/241999 Collection Container Standard drainage bag [...] day Drains: 2 Intraabdominal (perihepatic) UNOS ID [id number], Match Run [id number] Donor: young DCD NRP Kid WIT 27 [...] III, MD - 10/27/2024 12:00 AM EDT [facility] PATIENT NAME: BLAIR GILBERT DATE OF : 1985 CSN: [id number] PHYSICIAN: Harvey Domínguez III, MD ADMIT DATE: 10/25/2024 DICTATED BY: Harvey Domínguez III, MD SURGERY DATE: 10/27/2024 OPERATIVE REPORT SURGEON: Harvey Domínguez III, MD SLIP OPERATOR SURGEON: Kemar Sahni MD. PREOPERATIVE DIAGNOSIS: [...] were made hemostatic with the argon beam business case analyst. We assessed the flows of the portal [...] a mucocele formation. We then performed a ysik-tx-vned choledochocholedochostomy in an end to end fashion [...] small umbilicalhernia that was closed with a lnxeka-fb-cvdut 0 PDS suture. At this point, we [...] complications. MD CARLOS A HARMON III/DORIS JOB#: [id number] * Harvey Domínguez III, MD - 10/26/2024 7:00 AM EDT Patient Name: Blair Gilbert Date: 1985 Billing #: [id number] Date of Procedure: 10/25/2024 - 10/26/2024 Diagnosis: Chronic Hepatic Failure without coma Procedure: 1. Orthotopic Liver Transplant 2. Back Bench Preparation Donor Liver 3. Temporary portocaval shunt 4. Perihepatic packing for control of hemorrhage 5. Placement of external choledochal stent 6. Temporary abdominal closure Attending surgeons: Harvey Domínguez III, MD Child Protective Investigator Surgeon(s): Sveta Judge MD Findings: Whole organ placed in piggyback fashion with suprahepatic cava of donor to common orifice of all three hepatic veins for IVC anastomosis. Donor main portal vein to recipient main portal vein. Donor common hepatic artery to recipient right hepatic artery. Temporary abdominal with perihepatic packingfor control of hemorrhage. Externalization of bile duct with 8 Japanese pediatric feeding tube. Portal Flow Modulation No [...] This donor was ABO O and UNOSID [id number], Match Run [id number]. This was a 42-year-old donation after circulatory [...] After completion of the outflow anastomosis, a Swedish clamp was placed across the donor suprahepatic [...] artery flows were then measured with the Stockleap device. The portal flow was 3.4 L/min [...] do a temporary abdominal closure. An 8 Japanese pediatric feeding tube was brought through the [...] Sveta Alves III, MD Anesthesia: General Staff: Gray Mixing Operator: Mak Maher RN; Marty Clark RN Scrub Person: ST Angela Resident: Thuy Leon MD jig builder: Jose Daniel Arana RRT Estimated Blood Loss: [...] (Removed) Number of days: 5 Surgery Information: -[facility]#: [id number] -ABO: O to O -Recipient: SLK candidate [...] 1:19 PM EDTAssociated Order(s): IP CONSULT TO CREDIT CLERK [facility] Transplant Discharge Education Note Assessment: [...] Gomez, MSN, RN, NPD- Diabetes Education Office [phone] Schedule: M-F 8:00am-4:30pm * Ben Weiss RD - 10/27/2024 4:06 PM EDTAssociated Order(s): IP CONSULT TO NUTRITION SERVICES; IP CONSULT TO NUTRITION SERVICES TXP - Initial [facility] Medical Nutrition Therapy Reason(s) for [...] I/O: +23.2L net volume. Last BM Date: (INDUSTRIAL YARD BRAKE COUPLER). Admit Weight: 270 lb (122.5 kg) Current [...] Based on DBW of 93.1 kg Kcals/day: 8342-0189 (25-30 kcals/kg) Protein g/day: 140-190 (1.5-2.0 g/kg) [...] Dietitian - Solid Organ Transplant Contact via Forseva Chat * Lavell Kramer MD - 10/27/2024 11:09 AM EDTAssociated Order(s): INPATIENT CONSULT TO TRANSPLANT INFECTIOUS DISEASES Infectious Disease Consultation Patient: Blair Gilbert CSN: [id number] Assessment & Plan 39 y.o. M s/p [...] blood cx's if febrile Lavell Kramer MD [phone] Chief Complaint Long Qtc History of Present [...] Low Risk (07/09/2024) Received from [facility] Overall Financial Resource Strain (CARDIA) Difficulty [...] No Physical Activity: Unknown (07/14/2024) Received from [facility] Exercise Vital Sign Days of Exercise per Week: Patient unable to answer Minutes of Exercise per Session: Not on file Stress: Patient Unable To Answer (07/14/2024) Received from [facility] [employer] of Occupational Health - Occupational Stress Questionnaire Feeling of Stress : Patient unable to answer Social Connections: Patient Unable To Answer (07/14/2024) Received from [facility] Social Connection and Isolation Panel [NHANES] Frequency of Communication with Friends and Family: Patient unable to answer Frequency of Social Gatherings with Friends and Family: Patient unable to answer Attends Protestant Services: Patient unable to answer Active Member [...] to 4 times a day. DEXCOM G7 PROGRAM COORDINATOR Misc Use reader as directed. DEXCOM G7 [...] and at bedtime. lancets (ACCU-CHEK SOFTCLIX LANCETS) [facility] Use to test blood sugar up to 4 times a day. methocarbamoL (ROBAXIN) 500 MG tablet Take 1 tablet (500 mg total) by mouth 3 times a day. mycophenolate (CELLCEPT) 250 mg capsule Take 2 capsules (500 mg total) by mouth 2 times a day. 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 No indications for PREPARED FOODS SUPERVISOR. Good UOP - Noted KT US WNL [...] preliminary until attending attestation. Lauren Santos, DNP, INTERNAL CONSULTANT, PAMPHLET DISTRIBUTOR- Transplant Nephrology [phone] Preferred contact: secure chat [1] Allergies Allergen [...] Gonzalez MD, MEd, FASN * Marcellus Hebert, DIRECTOR SURGICAL, SILK BLOCKER - 10/27/2024 10:21 AM EDT HEALTH Care Management/Social Work Assessment Patient Information Patient Name: Blair Gilbert Hospital Day: 2 Inpatient/Observation: Inpatient Admit Date: 10/25/2024 Admission Diagnosis: Liver transplant recipient ([facility]) [Z94.4] Attending provider: Harvey Domínguez III, MD PCP: Enedina Mcguire NP [facility] Pharmacy: [facility] [address] [address] [facility] [address] [facility] [address] Issues related to obtaining medications: N/A Payor Information Medical Insurance Coverage: Payor: [facility] / Plan: [employer] / Product Type: *No Producttype* / [...] weeks of CD Treatement at [facility] Do you need Substance Abuse Treatment Resources?: [...] No Status & Connection to [facility] Services [place] Status & Connection to [place] Services Are you a ?: No Support [...] resides with his spouse at [facility] [place]. 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 Patient's LNOK:Spouse, Abdiaziz Gilbert, Patient has no current or past history of suicidal/homicidal ideation. Patient has a history of mental health diagnoses, PTSD and Generalized Anxiety Disorder. Patient is connected with TransplantPsychiatrist and prescribed Prozac. Patient has a history of alcohol use and has completed 12 weeksof CD Treatment at [facility]. Spouse explained that he will complete a 6 month virtual program post transplant but could not recall the name of the program. Patient has no current tobacco use. No previous need or recommendation for home health care services and no previous placements at half-way facility and/or inpatient rehab program. Patient has [...] as appropriate. NUBIA Escalera, RONALDO Phone Number: [phone] * John Moreno MD - 10/26/2024 3:41 AM EDT SURGICAL ICU CONSULT NOTE 10/26/2024 3:41 AM Name: Blair Gilbert CSN: [id number] HPI: Blair Gilbert is a 39 y.o. [...] at 9:00 PM naloxone (NARCAN) 4 mg/actuation Owen Apply 1 spray in one nostril if [...] % 250 mL infusion 2.5 mcg/min (10/26/24 6586) insulin regular in 0.9 % sodium chloride [...] input(s): PHART , PCO2 , PO2ART , NNC7ZWT , BEART in the last 72 hours. [...] at baseline or with provocation, shows no vjxwx-xb-hdzb atrial level shunt. - Pulmonary arteries: Systolic [...] IV pantoprazole while intubated, NPO Last BM: INDUSTRIAL YARD BRAKE COUPLER Bowel regimen: Senna/Miralax when able Nausea: Zofran PRN FLUID/ELECTROLYTES Recent Labs 10/25/24 2217 NA 137 K 2.1* CL 100 CO2 20* BUN 74* CREATININE 3.87* CALCIUM 9.3 PHOS 5.9* GLUCOSE 114* Intake/Output Summary (Last 24 hours) at 10/26/2024 0341 Last data filed at 10/26/2024 0326 Gross per 24 hour Intake 90485 ml Output 675 ml Net 71145 ml IV Fluids: EPINEPHrine (ADRENALIN) 10 mg in sodium chloride 0.9 % 250 mL infusion, Last Rate: 2.5 mcg/min (10/26/24 7624) insulin regular in 0.9 % sodium chloride norepinephrine, Last Rate: 18 mcg/min (10/26/24 8143) vasopressin, Last Rate: 0.04 Units/min (10/26/24 0244) [...] results for input(s): TEGANGLE , TEGKTIME , OLCAGNHB94 , TEGMAXAMPL , TEGRTIME , CBMZ in [...] ENDOCRINE Glucose range: Lab 10/26/24 0140 10/26/249 10/25/24233910/25/24221610/25/24 2156 10/22/24 0000 10/21/24 0000 POC GLU [...] in sodium chloride 0.9% 100 mL IVPB (Noti3Vkl) 2 g Every 6 hours 10/26/2024 -- Admin Instructions: Use Crfx1Yzm Adapter - Mix Thoroughly Before Administration Notes to Pharmacy: On stock order lister estimated creatinine clearance is 35.9 mL/min (A) (based on SCr of 3.87 mg/dL (H)). Route: Intravenous AMPicillin 2 g in sodium chloride 0.9% 100 mL IVPB (Kjlp0Exn) 2 g Once 10/26/2024 -- Admin Instructions: Use Cyvu8Emh Adapter - Mix Thoroughly Before Administration Notes to Pharmacy: On stock order lister estimated creatinine clearance is 35.9 mL/min (A) (based on SCr of 3.87 mg/dL (H)). Route: Intravenous cefTRIAXone (ROCEPHIN) 2 g in sodium chloride 0.9 % 100 mL Svwj4Tge (Completed) 2 g Once 10/25/2024 10/26/2024 Admin Instructions: Use Cnqr7Kvq Adapter - Mix Thoroughly Before Administration Route: [...] 1 Arterial Line 10/25/24 Right Radial 10/25/24 224 Radial less than 1 Introducer 10/25/24 Internal [...] 47 (H) 10/26/2024 PO2ART 127 (H) 10/26/2024 VHU3NZS 21 (L) 10/26/2024 BEART -5.4 (L) 10/26/2024 ITL3MCD 94.6 (L) 10/26/2024 C1LSMBRB 98 10/26/2024 P:F ratio = 363 CARDIOVASCULAR: [...] Acute Care Surgery, and Surgical Critical Care [facility] Academic Office [phone] For Transfers, call [phone] documented in this encounter Nursing Notes * [...] s/p OLT. Patient arrived to SICU bed SICU-28/IC-28 via hospital bed . Patient arrived intubated. [...] Progressing * Care Coordination - NUBIA Escalera, SILK BLOCKER - 10/31/2024 11:34 AM EDT [facility] Case Management/Social Work Department Progress Note [...] disease. PCP: Enedina Mcguire NP Home Pharmacy: [facility] [address] [place] [address] [facility] [address] [facility] [address] [facility] [place], [place] - [address] [facility] [address] Medical Insurance Coverage: Payor: [employer] [...] that there were no accepting C agencies([facility], [facility], [facility]) and patient would need to outpatient for PT/OT and labs. Discharge Plan Anticipated discharge plan: Home with HHC vs Home with outpatient Anticipated discharge date: 11/01 [facility] will continue to follow and remain available for discharge planning needs. NUBIA Escalera, RONALDO Cell [phone] * Plan of Care - Paulette Flannery [...] Citlaly Nova - 10/29/2024 1:53 PM EDT [facility] Case Management/Social Work Department Progress Note [...] disease. PCP: Enedina Mcguire NP Home Pharmacy: [facility] [address] [place] [address] [place] [address] [facility] [address] [facility] [address] [facility] [place] - [address] [id number] Medical Insurance Coverage: Payor: [employer] [...] submitted blanket H[facility] [place], [facility] [place], [facility], and [facility]. Awaiting responses. SW to followpending clearance [...] available for discharge planning needs. NUBIA Rhodes, SILK BLOCKER Inpatient [employer]/Care Coordination [phone] * Plan of Care - Soco Yap [...] Outcome: Progressing * Care Coordination - NUBIA Escalrea LSW - 10/28/2024 2:29 PM EDT [facility] Case Management/Social Work Department Progress Note [...] disease. PCP: Enedina Mcguire NP Home Pharmacy: [facility] [facility] [address] [facility] [address] [facility] [address] [facility] [address] [facility] [place] - [address] [place] [address] Medical Insurance Coverage: Payor: [employer] [...] discharge planning needs. NUBIA Escalera, RONALDO Cell [phone] * Plan of Care - Elaine Carrillo [...] at all times. Outcome: Completed Problem: Non-violent, brl-zfgy-ybghifsimoy restraints Description: Less restrictive alternative interventions will [...] protection of medical procedures, or protection of director of medical services access. Outcome: Completed * Plan of Care [...] foods as appropriate. Outcome: Progressing Problem: Non-violent, pyb-rdqg-zlrcgvysiql restraints Description: Less restrictive alternative interventions will [...] protection of medical procedures, or protection of director of medical services access. Outcome: Progressing * Plan of Care - Shanel Shen RN - 10/27/2024 9:00 AM EDT Problem: Non-violent, bch-ltpy-ypzywjrhcrg restraints Description: Less restrictive alternative interventions will [...] - 10/26/2024 7:41 PM EDT Problem: Non-violent, hrz-eibk-wpzxpenxdwy restraints Description: Less restrictive alternative interventions will [...] protection of medical procedures, or protection of director of medical services access. Outcome: Not Progressing Patient in bilateral [...] restraint flowsheet for further documentation. Problem: Non-violent, iop-jubq-bqhgacdrwqw restraints Description: Less restrictive alternative interventions will [...] protection of medical procedures, or protection of director of medical services access. Outcome: Progressing * Plan of Care [...] Routine Acute kidney injury superimposed on CKD ([facility]) Release Upon Ordering for 1 Occurrences starting 10/27/2024 Fungus culture Microbiology Routine Acute kidney injury superimposed on CKD ([facility] Release Upon Ordering for 1 Occurrences starting 10/27/2024 Routine Culture plus Stain Microbiology Routine Acute kidney injury superimposed on CKD ([facility]) Release Upon Ordering for 1 Occurrences starting 10/27/2024 Surgical Pathology Exam Pathology and Cytology Routine Acute kidney injury superimposed on CKD ([facility]) Release Upon Ordering for 1 Occurrences starting [...] Routine 10/31/2024 11:59 AM EDT US DUPLEX FPE-KQKWAZ-NHEMMIQ COMPLETE Routine 10/31/2024 10:19 AM EDT US [...] Routine 10/28/2024 5:31 PM EDT US DUPLEX WFZ-MQCEFG-DGGSGCC COMPLETE STAT 10/28/2024 4:23 PM EDT US [...] 5:13 PM EDT HEPATIC FUNCTION PANEL STAT 06/16/202 5 5:13 PM EDT HEPATIC FUNCTION PANEL Routine [...] Routine 10/27/2024 10:00 AM EDT US DUPLEX XKI-BIIZBY-RHQCAQT COMPLETE STAT 10/27/2024 9:51 AM EDT US [...] superimposed on CKD ([facility]) SC RENAL ALTRNSPLJ IMPLTJ GRF W/CIRCUS ROUSTABOUT NEPHRECTOMY 10/27/2024 2:32 AM EDT Acute kidney injury superimposed on CKD (CMS-HCC) 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 smith ROUTINE CULTURE PLUS STAIN Routine 10/27/2024 2:15 AM EDT FUNGUS CULTURE Routine 10/27/2024 2:15 AM EDT ANAEROBIC CULTURE Routine 10/27/2024 2:15 AM EDT TEG-STANDARD GLOBAL HEMOSTASIS (RAPID TEG [...] - 100 mg/dL 11/02/2024 5:45 PM EDT [facility] Blood 11/02/2024 5:44 PM EDT 11/02/2024 5:45 PM EDT us Harvey Domínguez III, MD POINT OF CARE TEST ORDERABLES Final Result [facility] [address] [place] [address], [facility] * (ABNORMAL) POC Glucose Monitoring Device (11/02/2024 3:34 PM EDT) POC Glucose Monitoring Device 208(H) 70 - 100 mg/dL 11/02/2024 3:35 PM EDT [facility] Blood 11/02/2024 3:34 PM EDT 11/02/2024 3:35 PM EDT Harvey Domínguez III, MD POINT OF CARE TEST ORDERABLES Final Result Performing Organization Address [facility] Co de Phone Number [facility] [address] [facility]. [address] * (ABNORMAL) POC Glucose Monitoring Device (11/02/2024 1:18 PM EDT) POC Glucose Monitoring Device 225(H) 70 - 100 mg/dL 11/02/2024 1:19 PM EDT [facility] Blood 11/02/2024 1:18 PM EDT 11/02/2024 1:19 PM EDT Harvey Domínguez III, MD POINT OF CARE TEST ORDERABLES Final Result Performing Organization Address [facility] Co de Phone Number [facility] [address] [facility]. [address] * (ABNORMAL) POC Glucose Monitoring Device (11/02/2024 8:59 AM EDT) POC Glucose Monitoring Device 129(H) 70 - 100 mg/dL 11/02/2024 9:00 AM EDT [facility] Blood 11/02/2024 8:59 AM EDT 11/02/2024 9:00 AM EDT Harvey Domínguez III, MD POINT OF CARE TEST ORDERABLES Final Result Performing Organization Address [facility] Co de Phone Number [facility] [address] [facility]. [address] * Tacrolimus level (11/02/2024 5:53 AM EDT) Tacrolimus (LC-MS) 7.4 3.0 - 15.0 ng/mL 11/02/2024 2:23 PM EDT [facility] Comment:Performed via liquid chromatography tandem mass spectrometry. Detection limit: 1 ng/mL. Individual target concentrations may vary due to target organ and time after transplant. This test has been developed and its performance characteristics determined by [facility] which is certified under the [...] PharmD LAB BLOOD ORDERABLES Denisse valle Result [facility] [address] [facility] [place] [address], [facility] * (ABNORMAL) Renal Function Panel w/EGFR (11/02/2024 5:53 AM EDT) Sodium 140 133 - 146 mmol/L 11/02/2024 6:47 AM EDT [facility] Potassium 3.3(L) 3.5 - 5.3 mmol/L 11/02/2024 6:47 AM EDT [facility] Chloride 107 98 - 110 mmol/L 11/02/2024 6:47 AM EDT [facility] CO2 25 21 - 33 mmol/L 11/02/2024 6:47 AM EDT [facility] Anion Gap 8 3 - 16 mmol/L 11/02/2024 6:47 AM EDT [facility] BUN 31(H) 7 - 25 mg/dL 11/02/2024 6:47 AM EDT [facility] Creatinine 1.08 0.60 - 1.30 mg/dL 11/02/2024 6:47 AM EDT [facility] Glucose 150(H) 70 - 100 mg/dL 11/02/2024 6:47 AM EDT [facility] Calcium 7.8(L) 8.6 - 10.3 mg/dL 11/02/2024 6:47 AM EDT [facility] Phosphorus 2.0(L) 2.1 - 4.7 mg/dL 11/02/2024 6:47 AM EDT [facility] Albumin 3.2(L) 3.5 - 5.7 g/dL 11/02/2024 6:47 AM EDT [facility] Osmolality, Calculated 299 278 - 305 mOsm/kg 11/02/2024 6:47 AM EDT [facility] EGFR 88 11/02/2024 6:47 AM EDT [facility] Comment:As of [...] 5:53 AM EDT 11/02/2024 6:12 AM EDT [facility] [employer] LAB BLOOD ORDERABLES Denisse l Result Performing Organization Address [facility] Co de Phone Number [facility] [address] * (ABNORMAL) Magnesium (11/02/2024 5:53 AM EDT) Magnesium 1.3(L) 1.5 - 2.5 mg/dL 11/02/2024 6:47 AM EDT [facility] Plasma 11/02/2024 5:53 AM EDT 11/02/2024 6:12 AM EDT L3 [employer] LAB BLOOD ORDERABLES Denisse l Result Performing Organization Address City/[facility]/ZIP Co de Phone Number [facility] [address] * (ABNORMAL) Hepatic Function Panel (11/02/2024 5:53 AM EDT) Total Bilirubin 1.6(H) 0.0 - 1.5 mg/dL 11/02/2024 6:47 AM EDT [facility] Bilirubin, Direct 0.81(H) 0.00 - 0.40 mg/dL 11/02/2024 6:47 AM EDT [facility] AST 30 13 - 39 U/L 11/02/2024 6:47 AM EDT [facility] ALT 66(H) 7 - 52 U/L 11/02/2024 6:47 AM EDT [facility] Alkaline Phosphatase 126(H) 36 - 125 U/L 11/02/2024 6:47 AM EDT [facility] Total Protein 4.6(L) 6.4 - 8.9 g/dL 11/02/2024 6:47 AM EDT [facility] Albumin 3.2(L) 3.5 - 5.7 g/dL 11/02/2024 6:47 AM EDT [facility] Bilirubin, Indirect 0.79 0.00 - 1.10 mg/dL 11/02/2024 6:47 AM EDT [facility] Plasma 11/02/2024 5:53 AM EDT 11/02/2024 6:12 AM EDT us Beata Horner [employer] LAB BLOOD ORDERABLES Denisse l Result [facility] [address] * (ABNORMAL) CBC (11/02/2024 5:53 AM EDT) WBC 5.8 3.8 - 10.8 10E3/uL 11/02/2024 6:21 AM EDT [facility] RBC 3.12(L) 4.20 - 5.80 10E6/uL 11/02/2024 6:21 AM EDT [facility] Hemoglobin 9.2(L) 13.2 - 17.1 g/dL 11/02/2024 6:21 AM EDT [facility] Hematocrit 27.5(L) 38.5 - 50.0 % 11/02/2024 6:21 AM EDT [facility] MCV 87.9 80.0 - 100.0 fL 11/02/2024 6:21 AM EDT [facility] MCH 29.5 27.0 - 33.0 pg 11/02/2024 6:21 AM EDT [facility] MCHC 33.5 32.0 - 36.0 g/dL 11/02/2024 6:21 AM EDT [facility] RDW 17.5(H) 11.0 - 15.0 % 11/02/2024 6:21 AM EDT [facility] Platelets 61(L) 140 - 400 10E3/uL 11/02/2024 6:21 AM EDT [facility] MPV 7.9 7.5 - 11.5 fL 11/02/2024 6:21 AM EDT [facility] Whole Blood 11/02/2024 5:53 AM EDT 11/02/2024 6:12 AM EDT us Beata Horner [employer] LAB BLOOD ORDERABLES Denisse l Result [facility] [address] * (ABNORMAL) POC Glucose Monitoring Device (11/01/2024 9:26 PM EDT) [facility] POC Glucose Monitoring Device 199(H) 70 - 100 mg/dL 11/01/2024 9:27 PM EDT [facility] Blood 11/01/2024 9:26 PM EDT 11/01/2024 9:27 PM EDT us Harvey Domínguez III, MD POINT OF CARE TEST ORDERABLES Final Result [facility] [address] * (ABNORMAL) POC Glucose Monitoring Device (11/01/2024 5:04 PM EDT) [facility] POC Glucose Monitoring Device 255(H) 70 - 100 mg/dL 11/01/2024 5:05 PM EDT [facility] Blood 11/01/2024 5:04 PM EDT 11/01/2024 5:05 PM EDT Harvey Domínguez III, MD POINT OF CARE TEST ORDERABLES Final Result Performing Organization Address City/State/[facility] Co de Phone Number [facility] [address] [place], [place] [address] * (ABNORMAL) Renal Function Panel w/EGFR, STAT (11/01/2024 2:17 PM EDT) [facility] Sodium 139 133 - 146 mmol/L 11/01/2024 3:10 PM EDT [facility] Potassium 3.3(L) 3.5 - 5.3 mmol/L 11/01/2024 3:10 PM EDT [facility] Chloride 107 98 - 110 mmol/L 11/01/2024 3:10 PM EDT [facility] CO2 24 21 - 33 mmol/L 11/01/2024 3:10 PM EDT [facility] Anion Gap 8 3 - 16 mmol/L 11/01/2024 3:10 PM EDT [facility] BUN 35(H) 7 - 25 mg/dL 11/01/2024 3:10 PM EDT [facility] Creatinine 1.22 0.60 - 1.30 mg/dL 11/01/2024 3:10 PM EDT [facility] Glucose 203(H) 70 - 100 mg/dL 11/01/2024 3:10 PM EDT [facility] Calcium 8.3(L) 8.6 - 10.3 mg/dL 11/01/2024 3:10 PM EDT [facility] Phosphorus 2.2 2.1 - 4.7 mg/dL 11/01/2024 3:10 PM EDT [facility] Albumin 3.4(L) 3.5 - 5.7 g/dL 11/01/2024 3:10 PM EDT [facility] Osmolality, Calculated 302 278 - 305 mOsm/kg 11/01/2024 3:10 PM EDT [facility] EGFR 76 11/01/2024 3:10 PM EDT [facility] Comment:As of [...] Marks MD LAB BLOOD ORDERABLES Final Result [facility] [address] * X-ray Portable Abdomen AP view (11/01/2024 [...] - 100 mg/dL 11/01/2024 12:23 PM EDT [facility] Blood 11/01/2024 12:2 2 PM EDT 11/01/2024 12:23 PM EDT Harvey Domínguez III, MD POINT OF CARE TEST ORDERABLES Final Result [facility] [address] [place] [address], [facility] * (ABNORMAL) POC Glucose Monitoring Device (11/01/2024 8:50 AM EDT) POC Glucose Monitoring Device 175(H) 70 - 100 mg/dL 11/01/2024 8:51 AM EDT [facility] Blood 11/01/2024 8:50 AM EDT 11/01/2024 8:51 AM EDT Harvey Domínguez III, MD POINT OF CARE TEST ORDERABLES Final Result [facility] [address] * Tacrolimus level (11/01/2024 6:01 AM EDT) Pathologist [facility] Tacrolimus (LC-MS) 7.5 3.0 - 15.0 ng/mL 11/01/2024 12:14 PM EDT [facility] Comment:Performed via liquid chromatography tandem mass spectrometry. Detection limit: 1 ng/mL. Individual target concentrations may vary due to target organ and time after transplant. This test has been developed and its performance characteristics determined by [facility] which is certified under the [...] ORDERABLES Denisse l Result Performing Organization Address City/[facility] Co de Phone Number [facility] [address] [facility]. [address] * (ABNORMAL) Renal Function Panel w/EGFR (11/01/2024 6:01 AM EDT) Sodium 139 133 - 146 mmol/L 11/01/2024 6:57 AM EDT [facility] Potassium 3.3(L) 3.5 - 5.3 mmol/L 11/01/2024 6:57 AM EDT [facility] Chloride 108 98 - 110 mmol/L 11/01/2024 6:57 AM EDT [facility] CO2 22 21 - 33 mmol/L 11/01/2024 6:57 AM EDT [facility] Anion Gap 9 3 - 16 mmol/L 11/01/2024 6:57 AM EDT [facility] BUN 37(H) 7 - 25 mg/dL 11/01/2024 6:57 AM EDT [facility] Creatinine 1.30 0.60 - 1.30 mg/dL 11/01/2024 6:57 AM EDT [facility] Glucose 163(H) 70 - 100 mg/dL 11/01/2024 6:57 AM EDT [facility] Calcium 8.2(L) 8.6 - 10.3 mg/dL 11/01/2024 6:57 AM EDT [facility] Phosphorus 2.9 2.1 - 4.7 mg/dL 11/01/2024 6:57 AM EDT [facility] Albumin 3.1(L) 3.5 - 5.7 g/dL 11/01/2024 6:57 AM EDT [facility] Osmolality, Calculated 300 278 - 305 mOsm/kg 11/01/2024 6:57 AM EDT [facility] EGFR 71 11/01/2024 6:57 AM EDT [facility] Comment:As of [...] 11/01/2024 6:20 AM EDT us Beata Horner [employer] LAB BLOOD ORDERABLES Denisse l Result [facility] [address] * Magnesium (11/01/2024 6:01 AM EDT) Magnesium 1.5 1.5 - 2.5 mg/dL 11/01/2024 6:57 AM EDT [facility] Plasma 11/01/2024 6:01 AM EDT 11/01/2024 6:20 AM EDT Beata Horner [employer] LAB BLOOD ORDERABLES Denisse l Result Performing Organization Address City/State/[facility] Co de Phone Number [facility] [address] * (ABNORMAL) Hepatic Function Panel (11/01/2024 6:01 AM EDT) Total Bilirubin 2.0(H) 0.0 - 1.5 mg/dL 11/01/2024 6:57 AM EDT [facility] Bilirubin, Direct 1.06(H) 0.00 - 0.40 mg/dL 11/01/2024 6:57 AM EDT [facility] AST 21 13 - 39 U/L 11/01/2024 6:57 AM EDT [facility] ALT 62(H) 7 - 52 U/L 11/01/2024 6:57 AM EDT [facility] Alkaline Phosphatase 114 36 - 125 U/L 11/01/2024 6:57 AM EDT [facility] Total Protein 4.6(L) 6.4 - 8.9 g/dL 11/01/2024 6:57 AM EDT [facility] Albumin 3.1(L) 3.5 - 5.7 g/dL 11/01/2024 6:57 AM EDT [facility] Bilirubin, Indirect 0.94 0.00 - 1.10 mg/dL 11/01/2024 6:57 AM EDT [facility] Plasma 11/01/2024 6:01 AM EDT 11/01/2024 6:20 AM EDT Beata Horner [employer] LAB BLOOD ORDERABLES Denisse l Result [facility] [address] [facility]. [address] * (ABNORMAL) CBC (11/01/2024 6:01 AM EDT) Pathologist [facility] WBC 5.9 3.8 - 10.8 10E3/uL 11/01/2024 6:29 AM EDT [facility] RBC 3.19(L) 4.20 - 5.80 10E6/uL 11/01/2024 6:29 AM EDT [facility] Hemoglobin 9.5(L) 13.2 - 17.1 g/dL 11/01/2024 6:29 AM EDT [facility] Hematocrit 27.8(L) 38.5 - 50.0 % 11/01/2024 6:29 AM EDT [facility] MCV 87.1 80.0 - 100.0 fL 11/01/2024 6:29 AM EDT [facility] MCH 29.9 27.0 - 33.0 pg 11/01/2024 6:29 AM EDT [facility] MCHC 34.3 32.0 - 36.0 g/dL 11/01/2024 6:29 AM EDT [facility] RDW 17.4(H) 11.0 - 15.0 % 11/01/2024 6:29 AM EDT [facility] Platelets 56(L) 140 - 400 10E3/uL 11/01/2024 6:29 AM EDT [facility] MPV 8.3 7.5 - 11.5 fL 11/01/2024 6:29 AM EDT [facility] Whole Blood 11/01/2024 6:01 AM EDT 11/01/2024 6:19 AM EDT us Beata Horner [employer] LAB BLOOD ORDERABLES Denisse l Result [facility] [address] * (ABNORMAL) POC Glucose Monitoring Device (10/31/2024 9:15 PM EDT) POC Glucose Monitoring Device 171(H) 70 - 100 mg/dL 10/31/2024 9:15 PM EDT [facility] Blood 10/31/2024 9:15 PM EDT 10/31/2024 9:15 PM EDT us Harvey Domínguez III, MD POINT OF CARE TEST ORDERABLES Final Result [facility] [address] [facility]. [address] * (ABNORMAL) POC Glucose Monitoring Device (10/31/2024 5:56 PM EDT) POC Glucose Monitoring Device 179(H) 70 - 100 mg/dL 10/31/2024 5:57 PM EDT [facility] Blood 10/31/2024 5:56 PM EDT 10/31/2024 5:57 PM EDT Harvey Domínguez III, MD POINT OF CARE TEST ORDERABLES Final Result Performing Organization Address [facility] Co de Phone Number [facility] [address] [facility]. [address] * CT Abdomen and Pelvis WO [...] Adrenal gland: No focal nodule seen. Kidneys: [place] kidneys noted with nonobstructing calcifications on the right. Findings of postsurgical changes in the left [place] kidney. Mild right hydronephrosis without an obstructive [...] Adrenal gland: No focal nodule seen. Kidneys: [place] kidneys noted with nonobstructing calcifications on theright. Findings of postsurgical changes in the left [place] kidney. Mildright hydronephrosis without an obstructive course [...] QT: 400 ms QTc: 456 ms P Martin: 49 degrees R Martin: 3 degrees T Martin: 14 degrees Diagnosis Line: NORMAL SINUS RHYTHM ^ NORMAL ECG ^ ^ Confirmed by MD REID JAMES ([id number]) on 11/02/2024 6:56:52 AM Priti Geiger [employer] ECG ORDERABLES Final Result [facility] * (ABNORMAL) Urinalysis w/Rfl to Microscopic (10/31/2024 1:18 PM EDT) Color, UA Straw Yellow,Straw 10/31/2024 1:46 PM EDT [facility] Clarity, UA Clear Clear 10/31/2024 1:46 PM EDT [facility] Specific [place], UA 1.013 1.005 - 1.035 10/31/2024 1:46 PM EDT [facility] pH, UA 6.5 5.0 - 8.0 10/31/2024 1:46 PM EDT [facility] Protein, UA Negative Negative mg/dL 10/31/2024 1:46 PM EDT [facility] Glucose, UA Negative Negative mg/dL 10/31/2024 1:46 PM EDT [facility] Ketones, UA Negative Negative mg/dL 10/31/2024 1:46 PM EDT [facility] Bilirubin, UA Negative Negative 10/31/2024 1:46 PM EDT [facility] Blood, UA Large(A) Negative 10/31/2024 1:46 PM EDT [facility] Nitrite, UA Negative Negative 10/31/2024 1:46 PM EDT [facility] Urobilinogen, UA <2.0 0.2 - 1.9 mg/dL 10/31/2024 1:46 PM EDT [facility] Leukocyte Esterase, UA Negative Negative 10/31/2024 1:46 PM EDT [facility] RBC, UA >100(H) 0 - 3 /HPF 10/31/2024 1:46 PM EDT [facility] WBC, UA 3 0 - 5 /HPF 10/31/2024 1:46 PM EDT [facility] Hyaline Casts, UA 3(H) 0 - 2 /LPF 10/31/2024 1:46 PM EDT [facility] Urine 10/31/2024 1:18 PM EDT 10/31/2024 1:32 PM EDT Priti Geiger [employer] URINE ORDERABLES Final Result [facility] [address] * (ABNORMAL) Post Kidney Transplant Urine Culture (10/31/2024 1:18 PM EDT) Culture Result Enterococcus faecium, Vancomycin Resistant(A) [facility] Comment: 1,000- <10,000 cfu/mL Identified [...] BLES Final Result [facility] [address] [facility]. [address] * (ABNORMAL) POC Glucose Monitoring Device (10/31/2024 11:59 AM EDT) [facility] POC Glucose Monitoring Device 130(H) 70 - 100 mg/dL 10/31/2024 12:21 PM EDT [facility] Blood 10/31/2024 11:5 9 AM EDT 10/31/2024 12:21 PM EDT Harvey Domínguez III, MD POINT OF CARE TEST ORDERABLES Final Result Performing Organization Address City/[facility]/ZIP Co de Phone Number [facility] [address] [facility]. [address] * US Abdomen Limited (10/31/2024 10:19 [...] EXAM: US ABDOMEN LIMITED EXAM: US DUPLEX [id number] COMPLETE INDICATION: Post-op liver transplant COMPARISON: None [...] visualized secondary to poor acoustic windows. The [place] right kidney measures 11.6 cm in length. [...] EXAM: US ABDOMEN LIMITED EXAM: US DUPLEX [id number] COMPLETE INDICATION: Post-op liver transplant COMPARISON: None [...] well visualized secondary to poor acousticwindows. The [place] right kidney measures 11.6 cm in length. [...] 10:35 AM EDT us Beatakayleigh Garland Evens [employer] IMG US ORDERABLES Final R esult * [...] at 10/31/2024 10:29 AM EDT Beata Horner [facility] US ORDERABLES Final R esult * US Duplex [id number] Comp (10/31/2024 10:19 AM EDT) Anatomical Region [...] EXAM: US ABDOMEN LIMITED EXAM: US DUPLEX [id number] COMPLETE INDICATION: Post-op liver transplant COMPARISON: None [...] visualized secondary to poor acoustic windows. The [place] right kidney measures 11.6 cm in length. [...] EXAM: US ABDOMEN LIMITED EXAM: US DUPLEX [id number] COMPLETE INDICATION: Post-op liver transplant COMPARISON: None [...] well visualized secondary to poor acousticwindows. The [place] right kidney measures 11.6 cm in length. [...] 10/31/2024 10:35 AM EDT us Beata Horner [employer] IMG US ORDERABLES Final R esult * ECG 12-lead (MUSE) (10/31/2024 8:57 AM EDT) 10/31/2024 8:57 AM EDT Narrative MUSE - 11/01/2024 9:21 AM EDT Ventricular Rate: 83 BPM Atrial Rate: 83 BPM P-R Interval: 168 ms QRS Duration: 102 ms QT: 392 ms QTc: 460 ms P Martin: 64 degrees R Martin: -18 degrees T Martin: 7 degrees Diagnosis Line: NORMAL SINUS RHYTHM ^ NORMAL ECG ^ ^ Confirmed by MD JOE, KIMBERLYIIEbony ([id number]) on 11/01/2024 9:21:13 AM us Priti Geiger [employer] ECG ORDERABLES Final Result [facility] * (ABNORMAL) POC Glucose Monitoring Device (10/31/2024 8:44 AM EDT) POC Glucose Monitoring Device 145(H) 70 - 100 mg/dL 10/31/2024 8:45 AM EDT [facility] Blood 10/31/2024 8:44 AM EDT 10/31/2024 8:44 AM EDT us Harvey Domínguez III, MD POINT OF CARE TEST ORDERABLES Final Result [facility] [address] * Tacrolimus level (10/31/2024 6:40 AM EDT) Pathologist [facility] Tacrolimus (LC-MS) 8.4 3.0 - 15.0 ng/mL 10/31/2024 10:05 AM EDT [facility] Comment:Performed via liquid chromatography tandem mass spectrometry. Detection limit: 1 ng/mL. Individual target concentrations may vary due to target organ and time after transplant. This test has been developed and its performance characteristics determined by [facility] which is certified under the Clinical Laboratory [...] Hillary Fernandes PharmD LAB BLOOD ORDERABLES Denisse tori Result [facility] [address] [facility]. [address] * (ABNORMAL) Renal Function Panel w/EGFR (10/31/2024 6:40 AM EDT) Pathologist [facility] Sodium 141 133 - 146 mmol/L 10/31/2024 8:09 AM EDT [facility] Potassium 3.5 3.5 - 5.3 mmol/L 10/31/2024 8:09 AM EDT [facility] Chloride 111(H) 98 - 110 mmol/L 10/31/2024 8:09 AM EDT [facility] CO2 20(L) 21 - 33 mmol/L 10/31/2024 8:09 AM EDT [facility] Anion Gap 10 3 - 16 mmol/L 10/31/2024 8:09 AM EDT [facility] BUN 54(H) 7 - 25 mg/dL 10/31/2024 8:09 AM EDT [facility] Creatinine 1.75(H) 0.60 - 1.30 mg/dL 10/31/2024 8:09 AM EDT [facility] Glucose 136(H) 70 - 100 mg/dL 10/31/2024 8:09 AM EDT [facility] Calcium 8.7 8.6 - 10.3 mg/dL 10/31/2024 8:09 AM EDT [facility] Phosphorus 4.1 2.1 - 4.7 mg/dL 10/31/2024 8:09 AM EDT [facility] Albumin 3.2(L) 3.5 - 5.7 g/dL 10/31/2024 8:09 AM EDT [facility] Osmolality, Calculated 309(H) 278 - 305 mOsm/kg 10/31/2024 8:09 AM EDT [facility] EGFR 50 10/31/2024 8:09 AM EDT [facility] Comment:As of [...] >90mL/min/1.73m2. Reference: Luis Eduardo C, Talia M, Olviia DC, Emerita ND, Madelyn [place], Felicia [place], et al. A Unifying Approach for GFR Estimation: Recommendations of the NKF-ASN Task Force on Reassessing the inclusion of Race in Diagnosing Kidney Disease. Am J Kidney Dis. 2020. Plasma 10/31/2024 6:4 0 AM EDT 10/31/2024 7:35 AM EDT us Beata Horner [employer] LAB BLOOD ORDERABLES Denisse tori Result [facility] [address] [place], [place] [address] * Magnesium (10/31/2024 6:40 AM EDT) Magnesium 1.8 1.5 - 2.5 mg/dL 10/31/2024 8:09 AM EDT [facility] Plasma 10/31/2024 6:40 AM EDT 10/31/2024 7:35 AM EDT Beata Horner [employer] LAB BLOOD ORDERABLES Denisse l Result Performing Organization Address [facility]/ZIP Co de Phone Number [facility] [address] [facility]. [address] * (ABNORMAL) Hepatic Function Panel (10/31/2024 6:40 AM EDT) Total Bilirubin 2.7(H) 0.0 - 1.5 mg/dL 10/31/2024 8:09 AM EDT [facility] Bilirubin, Direct 1.57(H) 0.00 - 0.40 mg/dL 10/31/2024 8:09 AM EDT [facility] AST 26 13 - 39 U/L 10/31/2024 8:09 AM EDT [facility] ALT 68(H) 7 - 52 U/L 10/31/2024 8:09 AM EDT [facility] Alkaline Phosphatase 112 36 - 125 U/L 10/31/2024 8:09 AM EDT [facility] Total Protein 4.7(L) 6.4 - 8.9 g/dL 10/31/2024 8:09 AM EDT [facility] Albumin 3.2(L) 3.5 - 5.7 g/dL 10/31/2024 8:09 AM EDT [facility] Bilirubin, Indirect 1.13(H) 0.00 - 1.10 mg/dL 10/31/2024 8:09 AM EDT [facility] Plasma 10/31/2024 6:40 AM EDT 10/31/2024 7:35 AM EDT [facility] [employer] LAB BLOOD ORDERABLES Denisse l Result [facility] [address] [facility]. [address] * (ABNORMAL) CBC (10/31/2024 6:40 AM EDT) WBC 6.0 3.8 - 10.8 10E3/uL 10/31/2024 8:05 AM EDT [facility] RBC 3.14(L) 4.20 - 5.80 10E6/uL 10/31/2024 8:05 AM EDT [facility] Hemoglobin 9.6(L) 13.2 - 17.1 g/dL 10/31/2024 8:05 AM EDT [facility] Hematocrit 27.5(L) 38.5 - 50.0 % 10/31/2024 8:05 AM EDT [facility] MCV 87.6 80.0 - 100.0 fL 10/31/2024 8:05 AM EDT [facility] MCH 30.7 27.0 - 33.0 pg 10/31/2024 8:05 AM EDT [facility] MCHC 35.0 32.0 - 36.0 g/dL 10/31/2024 8:05 AM EDT [facility] RDW 17.9(H) 11.0 - 15.0 % 10/31/2024 8:05 AM EDT [facility] Platelets 44(L) 140 - 400 10E3/uL 10/31/2024 8:05 AM EDT [facility] Comment: CNV Specimen checked for clots. None detected. MPV 8.9 7.5 - 11.5 fL 10/31/2024 8:05 AM EDT [facility] Whole Blood 10/31/2024 6:40 AM EDT 10/31/2024 7:34 AM EDT [facility] [employer] LAB BLOOD ORDERABLES Denisse l Result [facility] [address] * (ABNORMAL) POC Glucose Monitoring Device (10/30/2024 9:01 PM EDT) Pathologist [facility] POC Glucose Monitoring Device 144(H) 70 - 100 mg/dL 10/30/2024 9:02 PM EDT [facility] Blood 10/30/2024 9:01 PM EDT 10/30/2024 9:01 PM EDT us Harvey Domínguez III, MD POINT OF CARE TEST ORDERABLES Final Result Performing Organization Address City/[facility] Co de Phone Number [facility] [address] [facility]. [address] * (ABNORMAL) POC Glucose Monitoring Device (10/30/2024 5:37 PM EDT) POC Glucose Monitoring Device 124(H) 70 - 100 mg/dL 10/30/2024 5:47 PM EDT [facility] Blood 10/30/2024 5:37 PM EDT 10/30/2024 5:47 PM EDT Harvey Domínguez III, MD POINT OF CARE TEST ORDERABLES Final Result Performing Organization Address [facility] Co de Phone Number [facility] [address] [facility]. [address] * (ABNORMAL) POC Glucose Monitoring Device (10/30/2024 7:26 AM EDT) POC Glucose Monitoring Device 150(H) 70 - 100 mg/dL 10/30/2024 7:27 AM EDT [facility] Blood 10/30/2024 7:26 AM EDT 10/30/2024 7:27 AM EDT Harvey Domínguez III, MD POINT OF CARE TEST ORDERABLES Final Result Performing Organization Address City/[facility] Co de Phone Number [facility] [address] [facility]. [address] * Tacrolimus level (10/30/2024 7:13 AM EDT) Tacrolimus (LC-MS) 9.5 3.0 - 15.0 ng/mL 10/30/2024 2:53 PM EDT [facility] Comment:Performed via liquid chromatography tandem mass spectrometry. Detection limit: 1 ng/mL. Individual target concentrations may vary due to target organ and time after transplant. This test has been developed and its performance characteristics determined by [facility] which is certified under the [...] 7:13 AM EDT 10/30/2024 7:26 AM EDT [employer] [facility] BLOOD ORDERABLES Final Re sult Performing Organization Address City/[facility]/ZIP Co de Phone Number [facility] [address] * ECG 12-lead (MUSE) (10/30/2024 6:51 AM EDT) 10/30/2024 6:51 AM EDT Narrative MUSE - 11/01/2024 9:21 AM EDT Ventricular Rate: 92 BPM Atrial Rate: 92 BPM P-R Interval: 174 ms QRS Duration: 96 ms QT: 376 ms QTc: 464 ms P Martin: 54 degrees R Martin: -24 degrees T Martin: 11 degrees Diagnosis Line: NORMAL SINUS RHYTHM ^ NORMAL ECG ^ ^ Confirmed by MD JOE, OTIS ([id number]) on 11/01/2024 9:21:09 AM [employer] ECG ORDERABLES Final Result MUSE * (ABNORMAL) Renal Function Panel w/EGFR (10/30/2024 5:41 AM EDT) Sodium 140 133 - 146 mmol/L 10/30/2024 6:18 AM EDT [facility] Potassium 3.8 3.5 - 5.3 mmol/L 10/30/2024 6:18 AM EDT [facility] Chloride 111(H) 98 - 110 mmol/L 10/30/2024 6:18 AM EDT [facility] CO2 17(L) 21 - 33 mmol/L 10/30/2024 6:18 AM EDT [facility] Anion Gap 12 3 - 16 mmol/L 10/30/2024 6:18 AM EDT [facility] BUN 62(H) 7 - 25 mg/dL 10/30/2024 6:18 AM EDT [facility] Creatinine 1.96(H) 0.60 - 1.30 mg/dL 10/30/2024 6:18 AM EDT [facility] Glucose 116(H) 70 - 100 mg/dL 10/30/2024 6:18 AM EDT [facility] Calcium 9.0 8.6 - 10.3 mg/dL 10/30/2024 6:18 AM EDT [facility] Phosphorus 4.6 2.1 - 4.7 mg/dL 10/30/2024 6:18 AM EDT [facility] Albumin 3.2(L) 3.5 - 5.7 g/dL 10/30/2024 6:18 AM EDT [facility] Osmolality, Calculated 309(H) 278 - 305 mOsm/kg 10/30/2024 6:18 AM EDT [facility] EGFR 43 10/30/2024 6:18 AM EDT [facility] Comment:As of [...] 10/30/2024 5:47 AM EDT us Beata Horner [employer] [facility] BLOOD ORDERABLES Denisse tori Result [facility] [address] * Magnesium (10/30/2024 5:41 AM EDT) Magnesium 2.2 1.5 - 2.5 mg/dL 10/30/2024 6:18 AM EDT [facility] Plasma 10/30/2024 5:41 AM EDT 10/30/2024 5:47 AM EDT Beata Horner [employer] [facility] BLOOD ORDERABLES Denisse l Result [facility] [address] * (ABNORMAL) Hepatic Function Panel (10/30/2024 5:41 AM EDT) Total Bilirubin 3.6(H) 0.0 - 1.5 mg/dL 10/30/2024 6:18 AM EDT [facility] Bilirubin, Direct 1.95(H) 0.00 - 0.40 mg/dL 10/30/2024 6:18 AM EDT [facility] AST 33 13 - 39 U/L 10/30/2024 6:18 AM EDT [facility] ALT 71(H) 7 - 52 U/L 10/30/2024 6:18 AM EDT [facility] Alkaline Phosphatase 80 36 - 125 U/L 10/30/2024 6:18 AM EDT [facility] Total Protein 4.8(L) 6.4 - 8.9 g/dL 10/30/2024 6:18 AM EDT [facility] Albumin 3.2(L) 3.5 - 5.7 g/dL 10/30/2024 6:18 AM EDT [facility] Bilirubin, Indirect 1.65(H) 0.00 - 1.10 mg/dL 10/30/2024 6:18 AM EDT [facility] Plasma 10/30/2024 5:41 AM EDT 10/30/2024 5:47 AM EDT [facility] [employer] [facility] [employer] [facility] BLOOD ORDERABLES Denisse l Result [facility] [address] * (ABNORMAL) CBC (10/30/2024 5:41 AM EDT) WBC 8.1 3.8 - 10.8 10E3/uL 10/30/2024 8:06 AM EDT [facility] RBC 3.29(L) 4.20 - 5.80 10E6/uL 10/30/2024 8:06 AM EDT [facility] Hemoglobin 10.1(L) 13.2 - 17.1 g/dL 10/30/2024 8:06 AM EDT [facility] Hematocrit 28.8(L) 38.5 - 50.0 % 10/30/2024 8:06 AM EDT [facility] MCV 87.6 80.0 - 100.0 fL 10/30/2024 8:06 AM EDT [facility] MCH 30.6 27.0 - 33.0 pg 10/30/2024 8:06 AM EDT [facility] MCHC 34.9 32.0 - 36.0 g/dL 10/30/2024 8:06 AM EDT [facility] RDW 18.1(H) 11.0 - 15.0 % 10/30/2024 8:06 AM EDT [facility] Platelets 44(L) 140 - 400 10E3/uL 10/30/2024 8:06 AM EDT [facility] Comment: CNV Specimen checked for clots. None detected. MPV 8.3 7.5 - 11.5 fL 10/30/2024 8:06 AM EDT [facility] Whole Blood 10/30/2024 5:41 AM EDT 10/30/2024 5:50 AM EDT [facility] Dada Horner [employer] [facility] BLOOD ORDERABLES Denisse l Result [facility] [address] * (ABNORMAL) POC Glucose Monitoring Device (10/29/2024 10:18 PM EDT) POC Glucose Monitoring Device 140(H) 70 - 100 mg/dL 10/29/2024 10:18 PM EDT [facility] Blood 10/29/2024 10:1 8 PM EDT 10/29/2024 10:18 PM EDT us Harvey Domínguez III, MD POINT OF CARE TEST ORDERABLES Final Result Performing Organization Address City/[facility]/ZIP Co de Phone Number [facility] [address] [facility]. [address] * (ABNORMAL) POC Glucose Monitoring Device (10/29/2024 6:42 PM EDT) POC Glucose Monitoring Device 152(H) 70 - 100 mg/dL 10/29/2024 6:43 PM EDT [facility] Blood 10/29/2024 6:42 PM EDT 10/29/2024 6:43 PM EDT us Harvey Domínguez III, MD POINT OF CARE TEST ORDERABLES Final Result Performing Organization Address [facility] Co de Phone Number [facility] [address] [place] [address]. [address] * (ABNORMAL) POC Glucose Monitoring Device (10/29/2024 11:35 AM EDT) POC Glucose Monitoring Device 130(H) 70 - 100 mg/dL 10/29/2024 11:36 AM EDT [facility] Blood 10/29/2024 11:3 5 AM EDT 10/29/2024 11:36 AM EDT us Harvey Domínguez III, MD POINT OF CARE TEST ORDERABLES Final Result Performing Organization Address City/[facility]/ZIP Co de Phone Number [facility] [address] [facility]. [address] * ECG 12 lead (MUSE) (10/29/2024 9:34 AM EDT) 10/29/2024 9:34 AM EDT Narrative MUSE - 10/29/2024 10:34 PM EDT Ventricular Rate: 97 BPM Atrial Rate: 97 BPM P-R Interval: 186 ms QRS Duration: 104 ms QT: 382 ms QTc: 485 ms P Martin: 54 degrees R Martin: -21 degrees T Martin: 1 degrees Diagnosis Line: NORMAL SINUS RHYTHM ^ NORMAL ECG ^ Confirmed by JORGE MACIAS ([id number]) on 10/29/2024 10:34:50 PM Afshan Bear MD ECG ORDERABLES Final Result MUSE * Tacrolimus level (10/29/2024 8:08 AM EDT) [facility] Tacrolimus (LC-MS) 10.4 3.0 - 15.0 ng/mL 10/29/2024 2:07 PM EDT [facility] Comment:Performed via liquid chromatography tandem mass spectrometry. Detection limit: 1 ng/mL. Individual target concentrations may vary due to target organ and time after transplant. This test has been developed and its performance characteristics determined by [facility] which is certified under the [...] EDT 10/29/2024 8:21 AM EDT Priti Geiger [employer] [facility] BLOOD ORDERABLES Final Re sult [facility] [address] * Prepare RBC, leukoreduced, 1 Units (10/29/2024 6:16 AM EDT) Pathologist [facility] Product Code G5071G70 HCLL Unit Number [id number] HCLL Dispense Status Presumed Transfused_PT HCLL Blood Expiration Date [id number] HCLL Coding System [id number] [facility] Blood Bank Product Shay Plata MD BLOOD BANK PRODUCT O RDERABLES Final Result Performing Organization Address City/[facility]/ZIP Co de Phone Number [facility] * Prepare RBC, leukoreduced, 1 Units (10/29/2024 6:15 AM EDT) Product Code R4784S97 HCLL Unit Number [id number] HCLL Dispense Status Presumed Transfused_PT HCLL Blood Expiration Date [id number] HCLL Coding System [id number] [facility] Blood Bank Product Carlos Marks MD BLOOD BANK PRODUCT ORDERABL ES Final Result Performing Organization Address [facility] de Phone Number HCLL * Prepare RBC, leukoreduced, 1 Units (10/29/2024 6:15 AM EDT) Product Code O5511L17 HCLL Unit Number [id number] HCLL Dispense Status Presumed Transfused_PT HCLL Blood Expiration Date [id number] HCLL Coding System [id number] HCLL Blood Bank Product John Moreno MD BLOOD BANK PRODUCT ORDERABLE S Final Result Performing Organization Address [facility] de Phone Number [facility] * (ABNORMAL) Renal Function Panel w/EGFR (10/29/2024 5:07 AM EDT) Sodium 144 133 - 146 mmol/L 10/29/2024 5:49 AM EDT [facility] Potassium 3.8 3.5 - 5.3 mmol/L 10/29/2024 5:49 AM EDT [facility] Chloride 113(H) 98 - 110 mmol/L 10/29/2024 5:49 AM EDT [facility] CO2 17(L) 21 - 33 mmol/L 10/29/2024 5:49 AM EDT [facility] Anion Gap 14 3 - 16 mmol/L 10/29/2024 5:49 AM EDT [facility] BUN 57(H) 7 - 25 mg/dL 10/29/2024 5:49 AM EDT [facility] Creatinine 1.93(H) 0.60 - 1.30 mg/dL 10/29/2024 5:49 AM EDT [facility] Glucose 110(H) 70 - 100 mg/dL 10/29/2024 5:49 AM EDT [facility] Calcium 9.3 8.6 - 10.3 mg/dL 10/29/2024 5:49 AM EDT [facility] Phosphorus 4.8(H) 2.1 - 4.7 mg/dL 10/29/2024 5:49 AM EDT [facility] Albumin 3.5 3.5 - 5.7 g/dL 10/29/2024 5:49 AM EDT [facility] Osmolality, Calculated 314(H) 278 - 305 mOsm/kg 10/29/2024 5:49 AM EDT [facility] EGFR 44 10/29/2024 5:49 AM EDT [facility] Comment:As of [...] 10/29/2024 5:13 AM EDT us Beata Horner [employer] [facility] BLOOD ORDERABLES Denisse tori Result [facility] [address] * Magnesium (10/29/2024 5:07 AM EDT) Magnesium 2.1 1.5 - 2.5 mg/dL 10/29/2024 5:49 AM EDT [facility] Plasma 10/29/2024 5:07 AM EDT 10/29/2024 5:13 AM EDT Beata Horner [employer] LAB BLOOD ORDERABLES Denisse l Result [facility] [address]. [address] * (ABNORMAL) Hepatic Function Panel (10/29/2024 5:07 AM EDT) Total Bilirubin 4.2(H) 0.0 - 1.5 mg/dL 10/29/2024 5:49 AM EDT [facility] Bilirubin, Direct 2.85(H) 0.00 - 0.40 mg/dL 10/29/2024 5:49 AM EDT [facility] AST 31 13 - 39 U/L 10/29/2024 5:49 AM EDT [facility] ALT 88(H) 7 - 52 U/L 10/29/2024 5:49 AM EDT [facility] Alkaline Phosphatase 51 36 - 125 U/L 10/29/2024 5:49 AM EDT [facility] Total Protein 5.2(L) 6.4 - 8.9 g/dL 10/29/2024 5:49 AM EDT [facility] Albumin 3.5 3.5 - 5.7 g/dL 10/29/2024 5:49 AM EDT [facility] Bilirubin, Indirect 1.35(H) 0.00 - 1.10 mg/dL 10/29/2024 5:49 AM EDT [facility] Plasma 10/29/2024 5:07 AM EDT 10/29/2024 5:13 AM EDT Beata Horner [employer] [facility] BLOOD ORDERABLES Denisse l Result [facility] [address] * (ABNORMAL) CBC (10/29/2024 5:07 AM EDT) [facility] WBC 7.8 3.8 - 10.8 10E3/uL 10/29/2024 5:38 AM EDT [facility] RBC 3.05(L) 4.20 - 5.80 10E6/uL 10/29/2024 5:38 AM EDT [facility] Hemoglobin 9.0(L) 13.2 - 17.1 g/dL 10/29/2024 5:38 AM EDT [facility] Hematocrit 26.7(L) 38.5 - 50.0 % 10/29/2024 5:38 AM EDT [facility] MCV 87.4 80.0 - 100.0 fL 10/29/2024 5:38 AM EDT [facility] MCH 29.7 27.0 - 33.0 pg 10/29/2024 5:38 AM EDT [facility] MCHC 33.9 32.0 - 36.0 g/dL 10/29/2024 5:38 AM EDT [facility] RDW 18.3(H) 11.0 - 15.0 % 10/29/2024 5:38 AM EDT [facility] Platelets 41(L) 140 - 400 10E3/uL 10/29/2024 5:38 AM EDT [facility] Comment: CNV Specimen checked for clots. None detected. MPV 7.5 7.5 - 11.5 fL 10/29/2024 5:38 AM EDT [facility] Whole Blood 10/29/2024 5:07 AM EDT 10/29/2024 5:13 AM EDT Beata Dada Horner [employer] LAB BLOOD ORDERABLES Denisse l Result [facility] [address] [facility]. [address] * (ABNORMAL) TEG-Bypass/ECMO/Liver HN (Factor function, Platelet/Fibrin Clot Strength w/Clot Breakdown, Heparinase In All Channels) (10/29/2024 5:07 AM EDT) Citrated Kaolin Reaction Time (TEGECMOLIVER) 8.9 4.6 - 9.1 minutes 10/29/2024 7:04 AM EDT [facility] Citrated Kaolin W/Heparinase Reaction Time (TEGECMOLIVER) 7.4 4.3 - 8.3 minutes 10/29/2024 7:04 AM EDT [facility] Citrated Kaolin Maximum Amplitude (TEGECMOLIVER) 52.9 52.0 - 69.0 mm 10/29/2024 7:04 AM EDT [facility] Citrated Functional Fibrinogen W/Heparinase Maximum Amplitude(TEGEC MOLIVER) 20.7 15.0 - 34.0 mm 10/29/2024 7:04 AM EDT [facility] Citrated Rapid Teg W/Heparinase Maximum Amplitude (TEGECMOLIVER) 49.7(L) 53.0 - 69.0 mm 10/29/2024 7:04 AM EDT [facility] Citrated Kaolin w/Heparinase Percent Lysis (TEGECMOLIVER) 0.0 0.0 - 3.2 % 10/29/2024 7:04 AM EDT [facility] Whole Blood (Citrate) 10/29/2024 5:07 AM EDT 10/29/2024 5:10 AM EDT us Kemar Sahni MD LAB BLOOD ORDERABLES Final Result Performing Organization Address City/State/[facility] Co de Phone Number [facility] [address] * (ABNORMAL) TEG-Bypass/ECMO/Liver HN (Factor function, Platelet/Fibrin Clot Strength w/Clot Breakdown, Heparinase In All Channels) (10/28/2024 11:55 PM EDT) Citrated Kaolin Reaction Time (TEGECMOLIVER) 8.6 4.6 - 9.1 minutes 10/29/2024 2:01 AM EDT [facility] Citrated Kaolin W/Heparinase Reaction Time (TEGECMOLIVER) 8.7(H) 4.3 - 8.3 minutes 10/29/2024 2:01 AM EDT [facility] Citrated Kaolin Maximum Amplitude (TEGECMOLIVER) 47.9(L) 52.0 - 69.0 mm 10/29/2024 2:01 AM EDT [facility] Citrated Functional Fibrinogen W/Heparinase Maximum Amplitude(TEGEC MOLIVER) 22.0 15.0 - 34.0 mm 10/29/2024 2:01 AM EDT [facility] Citrated Rapid Teg W/Heparinase Maximum Amplitude (TEGECMOLIVER) 45.9(L) 53.0 - 69.0 mm 10/29/2024 2:01 AM EDT [facility] Citrated Kaolin w/Heparinase Percent Lysis (TEGECMOLIVER) 0.0 0.0 - 3.2 % 10/29/2024 2:01 AM EDT [facility] Whole Blood (Citrate) 10/28/2024 11:55 PM EDT 10/28/2024 11:58 PM EDT us Kemar Sahni MD LAB BLOOD ORDERABLES Final Result [facility] [address] * (ABNORMAL) CBC, STAT (10/28/2024 8:04 PM EDT) WBC 3.9 3.8 - 10.8 10E3/uL 10/28/2024 8:36 PM EDT [facility] RBC 2.66(L) 4.20 - 5.80 10E6/uL 10/28/2024 8:36 PM EDT [facility] Hemoglobin 8.0(L) 13.2 - 17.1 g/dL 10/28/2024 8:36 PM EDT [facility] Hematocrit 23.0(L) 38.5 - 50.0 % 10/28/2024 8:36 PM EDT [facility] MCV 86.4 80.0 - 100.0 fL 10/28/2024 8:36 PM EDT [facility] MCH 29.9 27.0 - 33.0 pg 10/28/2024 8:36 PM EDT [facility] MCHC 34.6 32.0 - 36.0 g/dL 10/28/2024 8:36 PM EDT [facility] RDW 18.6(H) 11.0 - 15.0 % 10/28/2024 8:36 PM EDT [facility] Platelets 29(L) 140 - 400 10E3/uL 10/28/2024 8:36 PM EDT [facility] Comment: CNV Specimen checked for clots. None detected. MPV 7.8 7.5 - 11.5 fL 10/28/2024 8:36 PM EDT [facility] Whole Blood 10/28/2024 8:04 PM EDT 10/28/2024 8:14 PM EDT Carlos Marks MD LAB BLOOD ORDERABLES Final Result Performing Organization Address City/[facility]/ZIP Co de Phone Number [facility] [address] * (ABNORMAL) POC Glucose Monitoring Device (10/28/2024 8:03 PM EDT) [facility] POC Glucose Monitoring Device 122(H) 70 - 100 mg/dL 10/28/2024 8:04 PM EDT [facility] Blood 10/28/2024 8:03 PM EDT 10/28/2024 8:04 PM EDT Harvey Domínguez III, MD POINT OF CARE TEST ORDERABLES Final Result Performing Organization Address City/[facility]/ZIP Co de Phone Number [facility] [address] * (ABNORMAL) TEG-Bypass/ECMO/Liver HN (Factor function, Platelet/Fibrin Clot Strength w/Clot Breakdown, Heparinase In All Channels) (10/28/2024 6:39 PM EDT) [facility] Citrated Kaolin Reaction Time (TEGECMOLIVER) 9.0 4.6 - 9.1 minutes 10/28/2024 7:50 PM EDT [facility] Citrated Kaolin W/Heparinase Reaction Time (TEGECMOLIVER) 8.3 4.3 - 8.3 minutes 10/28/2024 7:50 PM EDT [facility] Citrated Kaolin Maximum Amplitude (TEGECMOLIVER) 47.6(L) 52.0 - 69.0 mm 10/28/2024 7:50 PM EDT [facility] Citrated Functional Fibrinogen W/Heparinase Maximum Amplitude(TEGEC MOLIVER) 20.4 15.0 - 34.0 mm 10/28/2024 7:50 PM EDT [facility] Citrated Rapid Teg W/Heparinase Maximum Amplitude (TEGECMOLIVER) 44.0(L) 53.0 - 69.0 mm 10/28/2024 7:50 PM EDT [facility] Citrated Kaolin w/Heparinase Percent Lysis (TEGECMOLIVER) 0.0 0.0 - 3.2 % 10/28/2024 7:50 PM EDT [facility] Whole Blood (Citrate) 10/28/2024 6:39 PM EDT 10/28/2024 6:42 PM EDT Kemar Sahni MD LAB BLOOD ORDERABLES Final Result [facility] [address] * (ABNORMAL) POC Glucose Monitoring Device (10/28/2024 5:31 PM EDT) [facility] POC Glucose Monitoring Device 130(H) 70 - 100 mg/dL 10/28/2024 5:31 PM EDT [facility] Blood 10/28/2024 5:31 PM EDT 10/28/2024 5:31 PM EDT Harvey Domínguez III, MD POINT OF CARE TEST ORDERABLES Final Result [facility] [address] * Transfuse RBC Transfusion Rate: Per dept routine (10/28/2024 5:23 PM EDT) Shay Plata MD NURSING TREATMENT OR DERABLES - BLOOD ADMIN Final Result Performing Organization Address City/[facility] Co de Phone Number EXTERNAL * Transfuse RBC Transfusion Rate: Per dept routine, 1 Units (10/28/2024 5:23 PM EDT) Shay Plata MD NURSING TREATMENT OR DERABLES - BLOOD ADMIN Final Result Performing Organization Address City/[facility] Co de Phone [...] EXAM: US ABDOMEN LIMITED EXAM: US DUPLEX [id number] COMPLETE INDICATION: Post-op liver transplant DATE: 10/28/2024 [...] retrohepatic inferior vena cava is patent. The [place] right kidney is partially visualized. A prominent [...] EXAM: US ABDOMEN LIMITED EXAM: US DUPLEX [id number] COMPLETE INDICATION: Post-op liver transplant DATE: 10/28/2024 [...] retrohepatic inferior vena cava is patent. The [place] right kidney is partially visualized. A prominent [...] ORDERABLES Fi nal Result * US Duplex [id number] Comp (10/28/2024 4:23 PM EDT) Anatomical Region [...] EXAM: US ABDOMEN LIMITED EXAM: US DUPLEX [id number] COMPLETE INDICATION: Post-op liver transplant DATE: 10/28/2024 [...] retrohepatic inferior vena cava is patent. The [place] right kidney is partially visualized. A prominent [...] EXAM: US ABDOMEN LIMITED EXAM: US DUPLEX [id number] COMPLETE INDICATION: Post-op liver transplant DATE: 10/28/2024 [...] retrohepatic inferior vena cava is patent. The [place] right kidney is partially visualized. A prominent [...] at 10/28/2024 4:42 PM EDT us Shay Vi Plata MD IMG US ORDERABLES Fi nal Result * (ABNORMAL) CBC, STAT (10/28/2024 2:49 PM EDT) WBC 4.0 3.8 - 10.8 10E3/uL 10/28/2024 3:07 PM EDT [facility] RBC 2.44(L) 4.20 - 5.80 10E6/uL 10/28/2024 3:07 PM EDT [facility] Hemoglobin 7.5(L) 13.2 - 17.1 g/dL 10/28/2024 3:07 PM EDT [facility] Hematocrit 21.4(L) 38.5 - 50.0 % 10/28/2024 3:07 PM EDT [facility] MCV 87.6 80.0 - 100.0 fL 10/28/2024 3:07 PM EDT [facility] MCH 30.6 27.0 - 33.0 pg 10/28/2024 3:07 PM EDT [facility] MCHC 34.9 32.0 - 36.0 g/dL 10/28/2024 3:07 PM EDT [facility] RDW 18.4(H) 11.0 - 15.0 % 10/28/2024 3:07 PM EDT [facility] Platelets 30(L) 140 - 400 10E3/uL 10/28/2024 3:07 PM EDT [facility] Comment: CNV Specimen checked for clots. None detected. MPV 7.7 7.5 - 11.5 fL 10/28/2024 3:07 PM EDT [facility] Whole Blood 10/28/2024 2:49 PM EDT 10/28/2024 2:53 PM EDT Carlos Marks MD LAB BLOOD ORDERABLES Final Result [facility] [address] * ECG 12 lead (MUSE) (10/28/2024 1:22 PM EDT) 10/28/2024 1:22 PM EDT Narrative MUSE - 10/29/2024 10:34 PM EDT Ventricular Rate: 104 BPM Atrial Rate: 104 BPM P-R Interval: 172 ms QRS Duration: 90 ms QT: 354 ms QTc: 465 ms P Martin: 58 degrees R Martin: -19 degrees T Martin: 38 degrees Diagnosis Line: SINUS TACHYCARDIA ^ OTHERWISE NORMAL ECG ^ ^ Confirmed by JORGE MACIAS ([id number]) on 10/29/2024 10:34:22 PM us Hillary Fernandes PharmD ECG ORDERABLES Final Res ult MUSE * (ABNORMAL) POC Glucose Monitoring Device (10/28/2024 12:54 PM EDT) POC Glucose Monitoring Device 119(H) 70 - 100 mg/dL 10/28/2024 12:55 PM EDT [facility] Blood 10/28/2024 12:5 4 PM EDT 10/28/2024 12:55 PM EDT Harvey Domínguez III, MD POINT OF CARE TEST ORDERABLES Final Result Performing Organization Address City/[facility] Co de Phone Number [facility] [address] [facility]. [address] * Transfuse RBC Transfusion Rate: Per dept routine (10/28/2024 12:31 PM EDT) Carlos Marks MD NURSING TREATMENT ORDERABLE S - BLOOD ADMIN Final Result Performing Organization Address City/[facility] Co de Phone Number EXTERNAL * Transfuse RBC Transfusion Rate: Per dept routine, 1 Units (10/28/2024 12:31 PM EDT) Carlos Marks MD NURSING TREATMENT ORDERABLE S - BLOOD ADMIN Final Result Performing Organization Address [facility] de Phone Number EXTERNAL * Protime-INR, STAT (10/28/2024 11:09 AM EDT) Protime 14.3 12.1 - 15.1 seconds 10/28/2024 11:29 AM EDT [facility] INR 1.1 0.9 - 1.1 10/28/2024 11:29 AM EDT [facility] Comment: RECOMMENDED THERAPEUTIC RANGES USING INR : Stable oral anticoagulant therapy: 2.0 - 3.0 Mechanical prosthetic heart valve: 2.5 - 3.5 Recurrent acute myocardial infarction: 2.5 - 3.5 Plasma 10/28/2024 11:0 9 AM EDT 10/28/2024 11:16 AM EDT Carlos Marks MD LAB BLOOD ORDERABLES Final Result Performing Organization Address [facility] Co de Phone Number [facility] [address] [facility]. [address] * (ABNORMAL) Lactic Acid, STAT (10/28/2024 11:09 AM EDT) Lactate 0.3(L) 0.5 - 2.2 mmol/L 10/28/2024 11:37 AM EDT [facility] Plasma 10/28/2024 11:0 9 AM EDT 10/28/2024 11:15 AM EDT us Carlos Marks MD LAB BLOOD ORDERABLES Final Result [facility] [address] * Magnesium, STAT (10/28/2024 11:09 AM EDT) Magnesium 2.1 1.5 - 2.5 mg/dL 10/28/2024 11:47 AM EDT [facility] Plasma 10/28/2024 11:0 9 AM EDT 10/28/2024 11:16 AM EDT us Carlos Marks MD LAB BLOOD ORDERABLES Final Result Performing Organization Address [facility] de Phone Number [facility] [address] * (ABNORMAL) Renal Function Panel w/EGFR, STAT (10/28/2024 11:09 AM EDT) Sodium 144 133 - 146 mmol/L 10/28/2024 11:47 AM EDT [facility] Potassium 3.4(L) 3.5 - 5.3 mmol/L 10/28/2024 11:47 AM EDT [facility] Chloride 112(H) 98 - 110 mmol/L 10/28/2024 11:47 AM EDT [facility] CO2 22 21 - 33 mmol/L 10/28/2024 11:47 AM EDT [facility] Anion Gap 10 3 - 16 mmol/L 10/28/2024 11:47 AM EDT [facility] BUN 57(H) 7 - 25 mg/dL 10/28/2024 11:47 AM EDT [facility] Creatinine 2.01(H) 0.60 - 1.30 mg/dL 10/28/2024 11:47 AM EDT [facility] Glucose 108(H) 70 - 100 mg/dL 10/28/2024 11:47 AM EDT [facility] Calcium 8.8 8.6 - 10.3 mg/dL 10/28/2024 11:47 AM EDT [facility] Phosphorus 4.0 2.1 - 4.7 mg/dL 10/28/2024 11:47 AM EDT [facility] Albumin 3.3(L) 3.5 - 5.7 g/dL 10/28/2024 11:47 AM EDT [facility] Osmolality, Calculated 314(H) 278 - 305 mOsm/kg 10/28/2024 11:47 AM EDT [facility] EGFR 42 10/28/2024 11:47 AM EDT [facility] Comment:As of [...] Marks MD LAB BLOOD ORDERABLES Final Result [facility] [address] [id number], [facility] * (ABNORMAL) TEG-Bypass/ECMO/Liver HN (Factor function, Platelet/Fibrin Clot Strength w/Clot Breakdown, Heparinase In All Channels) (10/28/2024 11:09 AM EDT) Citrated Kaolin Reaction Time (TEGECMOLIVER) 9.2(H) 4.6 - 9.1 minutes 10/28/2024 12:30 PM EDT [facility] Citrated Kaolin W/Heparinase Reaction Time (TEGECMOLIVER) 9.6(H) 4.3 - 8.3 minutes 10/28/2024 12:30 PM EDT [facility] Citrated Kaolin Maximum Amplitude (TEGECMOLIVER) 51.2(L) 52.0 - 69.0 mm 10/28/2024 12:30 PM EDT [facility] Citrated Functional Fibrinogen W/Heparinase Maximum Amplitude(TEGEC MOLIVER) 21.6 15.0 - 34.0 mm 10/28/2024 12:30 PM EDT [facility] Citrated Rapid Teg W/Heparinase Maximum Amplitude (TEGECMOLIVER) 49.3(L) 53.0 - 69.0 mm 10/28/2024 12:30 PM EDT [facility] Citrated Kaolin w/Heparinase Percent Lysis (TEGECMOLIVER) 0.0 0.0 - 3.2 % 10/28/2024 12:30 PM EDT [facility] Whole Blood (Citrate) 10/28/2024 11:09 AM EDT 10/28/2024 11:14 AM EDT us Kemar Sahni MD LAB BLOOD ORDERABLES Final Result [facility] [address] [id number], [facility] * (ABNORMAL) CBC (10/28/2024 10:21 AM EDT) WBC 4.1 3.8 - 10.8 10E3/uL 10/28/2024 10:41 AM EDT [facility] RBC 2.30(L) 4.20 - 5.80 10E6/uL 10/28/2024 10:41 AM EDT [facility] Hemoglobin 7.1(L) 13.2 - 17.1 g/dL 10/28/2024 10:41 AM EDT [facility] Hematocrit 20.4(L) 38.5 - 50.0 % 10/28/2024 10:41 AM EDT [facility] MCV 88.5 80.0 - 100.0 fL 10/28/2024 10:41 AM EDT [facility] MCH 30.7 27.0 - 33.0 pg 10/28/2024 10:41 AM EDT [facility] MCHC 34.7 32.0 - 36.0 g/dL 10/28/2024 10:41 AM EDT [facility] RDW 18.7(H) 11.0 - 15.0 % 10/28/2024 10:41 AM EDT [facility] Platelets 37(L) 140 - 400 10E3/uL 10/28/2024 10:41 AM EDT [facility] Comment: CNV Specimen checked for clots. None detected. MPV 7.6 7.5 - 11.5 fL 10/28/2024 10:41 AM EDT [facility] Whole Blood 10/28/2024 10:2 1 AM EDT 10/28/2024 10:29 AM EDT Carlos Marks MD LAB BLOOD ORDERABLES Final Result Performing Organization Address City/[facility]/ZIP Co de Phone Number [facility] [address] * POC Glucose Monitoring Device (10/28/2024 9:07 AM EDT) [facility] POC Glucose Monitoring Device 97 70 - 100 mg/dL 10/28/2024 9:08 AM EDT [facility] Blood 10/28/2024 9:07 AM EDT 10/28/2024 9:08 AM EDT Harvey Domínguez III, MD POINT OF CARE TEST ORDERABLES Final Result [facility] [address] * (ABNORMAL) Tacrolimus level (10/28/2024 8:20 AM EDT) [facility] Tacrolimus (LC-MS) <1.0(L) 3.0 - 15.0 ng/mL 10/28/2024 2:02 PM EDT [facility] Comment:Performed via liquid chromatography tandem mass spectrometry. Detection limit: 1 ng/mL. Individual target concentrations may vary due to target organ and time after transplant. This test has been developed and its performance characteristics determined by [facility] which is certified under the Clinical Laboratory [...] EDT 10/28/2024 8:29 AM EDT Priti Geiger [employer] LAB BLOOD ORDERABLES Final Re sult Performing Organization Address [facility] Co de Phone Number [facility] [address] [place] [address] * (ABNORMAL) POC Glucose Monitoring Device (10/28/2024 8:10 AM EDT) POC Glucose Monitoring Device 102(H) 70 - 100 mg/dL 10/28/2024 8:11 AM EDT [facility] Blood 10/28/2024 8:10 AM EDT 10/28/2024 8:11 AM EDT Harvey Domínguez III, MD POINT OF CARE TEST ORDERABLES Final Result Performing Organization Address [facility] Co de Phone Number [facility] [address] [facility]. [address] * POC Glucose Monitoring Device (10/28/2024 6:17 AM EDT) POC Glucose Monitoring Device 100 70 - 100 mg/dL 10/28/2024 6:18 AM EDT [facility] Blood 10/28/2024 6:17 AM EDT 10/28/2024 6:18 AM EDT us Harvey Domínguez III, MD POINT OF CARE TEST ORDERABLES Final Result Performing Organization Address City/[facility] Co de Phone Number [facility] [address] [place] [address], [facility] * Prepare Platelets, leukoreduced (10/28/2024 6:15 AM EDT) Product Code X8178I84 HCLL Unit Number [id number] HCLL Dispense Status Presumed Transfused_PT HCLL Blood Expiration Date HCLL Coding System [id number] HCLL Product Code P3862X29 HCLL Unit Number [id number] HCLL Dispense Status Presumed Transfused_PT HCLL Blood Expiration Date HCLL Coding System [id number] HCLL Attending Provider Unknown BLOOD BANK PRODUCT OR DERABLES Final Result [facility] * Prepare Fresh Frozen Plasma (10/28/2024 6:15 AM EDT) Product Code S9741Q39 HCLL Unit Number [id number] HCLL Dispense Status Released from Crossmatch_RE HCLL Blood Expiration Date HCLL Coding System [id number] HCLL Product Code I8858R49 HCLL Unit Number [id number] HCLL Dispense Status Presumed Transfused_PT HCLL Blood Expiration Date HCLL Coding System RTME629 HCLL Product Code Y3258Y72 HCLL Unit Number [id number] HCLL Dispense Status Released from Crossmatch_RE HCLL Blood Expiration Date HCLL Coding System JNZD080 HCLL Product Code R6601Y47 HCLL Unit Number [id number] HCLL Dispense Status Presumed Transfused_PT HCLL Blood Expiration Date HCLL Coding System KDGY087 HCLL Product Code C6017B68 HCLL Unit Number [id number] HCLL Dispense Status Released from Crossmatch_RE HCLL Blood Expiration Date HCLL Coding System [id number] HCLL us Attending Provider Unknown BLOOD BANK PRODUCT OR DERABLES Final Result Performing Organization Address City/[facility] Co de Phone Number [facility] * Prepare RBC, leukoreduced (10/28/2024 6:15 AM EDT) Product Code X2635V19 HCLL Unit Number [id number] HCLL Dispense Status Released from Crossmatch_RE HCLL Blood Expiration Date [id number] HCLL Coding System HYFX950 HCLL Product Code Z5768B96 HCLL Unit Number [id number] HCLL Dispense Status Presumed Transfused_PT HCLL Blood Expiration Date [id number] HCLL Coding System QNRW534 HCLL Product Code T8657W64 HCLL Unit Number [id number] HCLL Dispense Status Released from Crossmatch_RE HCLL Blood Expiration Date [id number] HCLL Coding System WXXP084 HCLL Product Code P9357V47 HCLL Unit Number [id number] HCLL Dispense Status Presumed Transfused_PT HCLL Blood Expiration Date [id number] HCLL Coding System SONQ096 HCLL Product Code M2624H20 HCLL Unit Number [id number] HCLL Dispense Status Released from Crossmatch_RE HCLL Blood Expiration Date [id number] HCLL Coding System FYHC190 HCLL us Attending Provider Unknown BLOOD BANK PRODUCT OR DERABLES Final Result Performing Organization Address City/[facility]/ZIP Co de Phone Number [facility] * Prepare Platelets, leukoreduced, 1 Units (10/28/2024 6:15 AM EDT) Product Code R9053Y98 HCLL Unit Number [id number] HCLL Dispense Status Presumed Transfused_PT HCLL Blood Expiration Date [id number] HCLL Coding System [id number] HCLL Blood Bank Product John Pina MD BLOOD BANK PRODUCT ORDERABLES F inal Result Performing Organization Address [facility] de Phone Number [facility] * Prepare Cryoprecipitate, 1 Units (10/28/2024 6:15 AM EDT) Product Code J6079E64 HCLL Unit Number [id number] HCLL Dispense Status Presumed Transfused_PT HCLL Blood Expiration Date HCLL Coding System NSBI985 HCLL Product Code T7594Y07 HCLL Unit Number [id number] HCLL Dispense Status Presumed Transfused_PT HCLL Blood Expiration Date HCLL Coding System DTSE631 HCLL Blood Bank Product John Pina MD BLOOD BANK PRODUCT ORDERABLES F inal Result Performing Organization Address [facility] de Phone Number [facility] * Prepare Fresh Frozen Plasma, 1 Units (10/28/2024 6:15 AM EDT) Product Code I5673O39 HCLL Unit Number [id number] HCLL Dispense Status Presumed Transfused_PT HCLL Blood Expiration Date HCLL Coding System [id number] HCLL Blood Bank Product John Pina MD BLOOD BANK PRODUCT ORDERABLES F inal Result Performing Organization Address [facility] de Phone Number [facility] * Prepare Cryoprecipitate, 1 Units (10/28/2024 6:15 AM EDT) Product Code G0159W66 HCLL Unit Number [id number] HCLL Dispense Status Presumed Transfused_PT HCLL Blood Expiration Date HCLL Coding System MVVZ699 HCLL Product Code U8118C84 HCLL Unit Number [id number] HCLL Dispense Status Presumed Transfused_PT HCLL Blood Expiration Date 925694777923 HCLL Coding System [id number] HCLL Product Code G1488P66 HCLL Unit Number [id number] HCLL Dispense Status Presumed Transfused_PT HCLL Blood Expiration Date HCLL Coding System GXBB397 HCLL Product Code M5901S46 HCLL Unit Number [id number] HCLL Dispense Status Presumed Transfused_PT HCLL Blood Expiration Date [id number] HCLL Coding System ZWIC438 HCLL Blood Bank Product John Pina MD BLOOD BANK PRODUCT ORDERABLES F inal Result [facility] * (ABNORMAL) POC Glucose Monitoring Device (10/28/2024 4:55 AM EDT) POC Glucose Monitoring Device 104(H) 70 - 100 mg/dL 10/28/2024 4:57 AM EDT [facility] Blood 10/28/2024 4:55 AM EDT 10/28/2024 4:57 AM EDT Harvey Domínguez III, MD POINT OF CARE TEST ORDERABLES Final Result Performing Organization Address City/[facility]/ZIP Co de Phone Number [facility] [address] * TEG-Bypass/ECMO/Liver HN (Factor function, Platelet/Fibrin Clot Strength w/Clot Breakdown, Heparinase In All Channels) (10/28/2024 4:13 AM EDT) Citrated Kaolin Reaction Time (TEGECMOLIVER) 7.2 4.6 - 9.1 minutes 10/28/2024 5:38 AM EDT [facility] Citrated Kaolin W/Heparinase Reaction Time (TEGECMOLIVER) 7.8 4.3 - 8.3 minutes 10/28/2024 5:38 AM EDT [facility] Citrated Kaolin Maximum Amplitude (TEGECMOLIVER) 53.0 52.0 - 69.0 mm 10/28/2024 5:38 AM EDT [facility] Citrated Functional Fibrinogen W/Heparinase Maximum Amplitude(TEGEC MOLIVER) 21.4 15.0 - 34.0 mm 10/28/2024 5:38 AM EDT [facility] Citrated Rapid Teg W/Heparinase Maximum Amplitude (TEGECMOLIVER) 54.7 53.0 - 69.0 mm 10/28/2024 5:38 AM EDT [facility] Citrated Kaolin w/Heparinase Percent Lysis (TEGECMOLIVER) 0.0 0.0 - 3.2 % 10/28/2024 5:38 AM EDT [facility] Whole Blood (Citrate) 10/28/2024 4:13 AM EDT 10/28/2024 4:28 AM EDT Kemar Sahni MD LAB BLOOD ORDERABLES Final Result Performing Organization Address [facility] Co de Phone Number [facility] [address] [facility]. [address] * Protime-INR (10/28/2024 4:13 AM EDT) Protime 14.6 12.1 - 15.1 seconds 10/28/2024 4:53 AM EDT [facility] INR 1.1 0.9 - 1.1 10/28/2024 4:53 AM EDT [facility] Comment: RECOMMENDED THERAPEUTIC RANGES USING INR : Stable oral anticoagulant therapy: 2.0 - 3.0 Mechanical prosthetic heart valve: 2.5 - 3.5 Recurrent acute myocardial infarction: 2.5 - 3.5 Plasma 10/28/2024 4:13 AM EDT 10/28/2024 4:41 AM EDT Kemar Sahni MD LAB BLOOD ORDERABLES Final Result [facility] [address] * Magnesium (10/28/2024 4:13 AM EDT) Magnesium 2.2 1.5 - 2.5 mg/dL 10/28/2024 5:15 AM EDT [facility] Plasma 10/28/2024 4:13 AM EDT 10/28/2024 4:41 AM EDT Kemar Sahni MD LAB BLOOD ORDERABLES Final Result [facility] [address] * (ABNORMAL) Hepatic Function Panel (10/28/2024 4:13 AM EDT) Total Bilirubin 2.3(H) 0.0 - 1.5 mg/dL 10/28/2024 5:15 AM EDT [facility] Bilirubin, Direct 1.67(H) 0.00 - 0.40 mg/dL 10/28/2024 5:15 AM EDT [facility] AST 44(H) 13 - 39 U/L 10/28/2024 5:15 AM EDT [facility] ALT 101(H) 7 - 52 U/L 10/28/2024 5:15 AM EDT [facility] Alkaline Phosphatase 26(L) 36 - 125 U/L 10/28/2024 5:15 AM EDT [facility] Total Protein 4.5(L) 6.4 - 8.9 g/dL 10/28/2024 5:15 AM EDT [facility] Albumin 3.1(L) 3.5 - 5.7 g/dL 10/28/2024 5:15 AM EDT [facility] Bilirubin, Indirect 0.63 0.00 - 1.10 mg/dL 10/28/2024 5:15 AM EDT [facility] Plasma 10/28/2024 4:13 AM EDT 10/28/2024 4:41 AM EDT Kemar Sahni MD LAB BLOOD ORDERABLES Final Result [facility] [address] [facility]. [address] * (ABNORMAL) Renal Function Panel w/EGFR (10/28/2024 4:13 AM EDT) Sodium 142 133 - 146 mmol/L 10/28/2024 5:15 AM EDT [facility] Potassium 3.5 3.5 - 5.3 mmol/L 10/28/2024 5:15 AM EDT [facility] Chloride 111(H) 98 - 110 mmol/L 10/28/2024 5:15 AM EDT [facility] CO2 22 21 - 33 mmol/L 10/28/2024 5:15 AM EDT [facility] Anion Gap 9 3 - 16 mmol/L 10/28/2024 5:15 AM EDT [facility] BUN 58(H) 7 - 25 mg/dL 10/28/2024 5:15 AM EDT [facility] Creatinine 2.24(H) 0.60 - 1.30 mg/dL 10/28/2024 5:15 AM EDT [facility] Glucose 103(H) 70 - 100 mg/dL 10/28/2024 5:15 AM EDT [facility] Calcium 9.1 8.6 - 10.3 mg/dL 10/28/2024 5:15 AM EDT [facility] Phosphorus 4.8(H) 2.1 - 4.7 mg/dL 10/28/2024 5:15 AM EDT [facility] Albumin 3.1(L) 3.5 - 5.7 g/dL 10/28/2024 5:15 AM EDT [facility] Osmolality, Calculated 310(H) 278 - 305 mOsm/kg 10/28/2024 5:15 AM EDT [facility] EGFR 37 10/28/2024 5:15 AM EDT [facility] Comment:As of [...] Sahni MD LAB BLOOD ORDERABLES Final Result [facility] [address] [place] [address], [facility] * (ABNORMAL) CBC (10/28/2024 4:13 AM EDT) WBC 4.5 3.8 - 10.8 10E3/uL 10/28/2024 5:09 AM EDT [facility] RBC 2.39(L) 4.20 - 5.80 10E6/uL 10/28/2024 5:09 AM EDT [facility] Hemoglobin 7.3(L) 13.2 - 17.1 g/dL 10/28/2024 5:09 AM EDT [facility] Hematocrit 21.0(L) 38.5 - 50.0 % 10/28/2024 5:09 AM EDT [facility] MCV 87.8 80.0 - 100.0 fL 10/28/2024 5:09 AM EDT [facility] MCH 30.5 27.0 - 33.0 pg 10/28/2024 5:09 AM EDT [facility] MCHC 34.7 32.0 - 36.0 g/dL 10/28/2024 5:09 AM EDT [facility] RDW 18.7(H) 11.0 - 15.0 % 10/28/2024 5:09 AM EDT [facility] Platelets 38(L) 140 - 400 10E3/uL 10/28/2024 5:09 AM EDT [facility] Comment: CNV Specimen checked for clots. None detected. MPV 7.6 7.5 - 11.5 fL 10/28/2024 5:09 AM EDT [facility] Whole Blood 10/28/2024 4:13 AM EDT 10/28/2024 4:41 AM EDT Kemar Sahni MD LAB BLOOD ORDERABLES Final Result [facility] [address] [facility]. [address] * (ABNORMAL) POC Glucose Monitoring Device (10/28/2024 4:04 AM EDT) POC Glucose Monitoring Device 103(H) 70 - 100 mg/dL 10/28/2024 4:05 AM EDT [facility] Blood 10/28/2024 4:04 AM EDT 10/28/2024 4:05 AM EDT Harvey Domínguez III, MD POINT OF CARE TEST ORDERABLES Final Result Performing Organization Address City/[facility] Co de Phone Number [facility] [address] [place] [address]. [address] * (ABNORMAL) POC Glucose Monitoring Device (10/28/2024 3:00 AM EDT) POC Glucose Monitoring Device 106(H) 70 - 100 mg/dL 10/28/2024 3:01 AM EDT [facility] Blood 10/28/2024 3:00 AM EDT 10/28/2024 3:01 AM EDT Harvey Domínguez III, MD POINT OF CARE TEST ORDERABLES Final Result Performing Organization Address City/[facility]/ZIP Co de Phone Number [facility] [address] [place] [address]. [address] * (ABNORMAL) POC Glucose Monitoring Device (10/28/2024 2:32 AM EDT) POC Glucose Monitoring Device 109(H) 70 - 100 mg/dL 10/28/2024 2:33 AM EDT [facility] Blood 10/28/2024 2:32 AM EDT 10/28/2024 2:33 AM EDT Harvey Domínguez III, MD POINT OF CARE TEST ORDERABLES Final Result Performing Organization Address [facility] Co de Phone Number [facility] [address] * (ABNORMAL) POC Glucose Monitoring Device (10/28/2024 2:14 AM EDT) POC Glucose Monitoring Device 115(H) 70 - 100 mg/dL 10/28/2024 2:15 AM EDT [facility] Blood 10/28/2024 2:14 AM EDT 10/28/2024 2:15 AM EDT Harvey Domínguez III, MD POINT OF CARE TEST ORDERABLES Final Result Performing Organization Address [facility] Co de Phone Number [facility] [address] [facility]. [address] * (ABNORMAL) POC Glucose Monitoring Device (10/28/2024 2:03 AM EDT) POC Glucose Monitoring Device 101(H) 70 - 100 mg/dL 10/28/2024 2:04 AM EDT [facility] Blood 10/28/2024 2:03 AM EDT 10/28/2024 2:04 AM EDT Harvey Domínguez III, MD POINT OF CARE TEST ORDERABLES Final Result Performing Organization Address [facility] Co de Phone Number [facility] [address] [facility]. [address] * Transfuse RBC Transfusion Rate: Per dept routine (10/28/2024 1:51 AM EDT) us John Moreno MD NURSING TREATMENT ORDERABLES - BLOOD ADMIN Final Result Performing Organization Address City/[facility] Co de Phone [...] - 9.1 minutes 10/28/2024 1:22 AM EDT [facility] Citrated Kaolin W/Heparinase Reaction Time (TEGECMOLIVER) 7.7 4.3 - 8.3 minutes 10/28/2024 1:22 AM EDT [facility] Citrated Kaolin Maximum Amplitude (TEGECMOLIVER) 54.4 52.0 - 69.0 mm 10/28/2024 1:22 AM EDT [facility] Citrated Functional Fibrinogen W/Heparinase Maximum Amplitude(TEGEC MOLIVER) 20.4 15.0 - 34.0 mm 10/28/2024 1:22 AM EDT [facility] Citrated Rapid Teg W/Heparinase Maximum Amplitude (TEGECMOLIVER) 51.0(L) 53.0 - 69.0 mm 10/28/2024 1:22 AM EDT [facility] Citrated Kaolin w/Heparinase Percent Lysis (TEGECMOLIVER) 0.0 0.0 - 3.2 % 10/28/2024 1:22 AM EDT [facility] Whole Blood (Citrate) 10/28/2024 12:05 AM EDT 10/28/2024 12:09 AM EDT us Kemar Sahni MD LAB BLOOD ORDERABLES Final Result [facility] [address] * Magnesium (10/28/2024 12:05 AM EDT) Magnesium 2.2 1.5 - 2.5 mg/dL 10/28/2024 1:59 AM EDT [facility] Plasma 10/28/2024 12:0 5 AM EDT 10/28/2024 12:11 AM EDT us Kemar Sahni MD LAB BLOOD ORDERABLES Final Result [facility] [address] [place] [address], [facility] * (ABNORMAL) Renal Function Panel w/EGFR (10/28/2024 12:05 AM EDT) Sodium 144 133 - 146 mmol/L 10/28/2024 1:59 AM EDT [facility] Potassium 3.4(L) 3.5 - 5.3 mmol/L 10/28/2024 1:59 AM EDT [facility] Chloride 112(H) 98 - 110 mmol/L 10/28/2024 1:59 AM EDT [facility] CO2 19(L) 21 - 33 mmol/L 10/28/2024 1:59 AM EDT [facility] Anion Gap 13 3 - 16 mmol/L 10/28/2024 1:59 AM EDT [facility] BUN 59(H) 7 - 25 mg/dL 10/28/2024 1:59 AM EDT [facility] Creatinine 2.42(H) 0.60 - 1.30 mg/dL 10/28/2024 1:59 AM EDT [facility] Glucose 118(H) 70 - 100 mg/dL 10/28/2024 1:59 AM EDT [facility] Calcium 9.0 8.6 - 10.3 mg/dL 10/28/2024 1:59 AM EDT [facility] Phosphorus 5.3(H) 2.1 - 4.7 mg/dL 10/28/2024 1:59 AM EDT [facility] Albumin 3.1(L) 3.5 - 5.7 g/dL 10/28/2024 1:59 AM EDT [facility] Osmolality, Calculated 316(H) 278 - 305 mOsm/kg 10/28/2024 1:59 AM EDT [facility] EGFR 34 10/28/2024 1:59 AM EDT [facility] Comment:As of [...] Sahni MD LAB BLOOD ORDERABLES Final Result [facility] [address] * (ABNORMAL) Differential (10/28/2024 12:05 AM EDT) Neutrophils Relative 88.6(H) 40.0 - 80.0 % 10/28/2024 12:41 AM EDT [facility] Lymphocytes Relative 2.5(L) 15.0 - 45.0 % 10/28/2024 12:41 AM EDT [facility] Monocytes Relative 6.1 0.0 - 12.0 % 10/28/2024 12:41 AM EDT [facility] Eosinophils Relative 2.4 0.0 - 8.0 % 10/28/2024 12:41 AM EDT [facility] Basophils Relative 0.4 0.0 - 1.0 % 10/28/2024 12:41 AM EDT [facility] nRBC 0 0 - 0 /100 WBC 10/28/2024 12:41 AM EDT [facility] Neutrophils Absolute 4,341 1,520 - 8,640 /uL 10/28/2024 12:41 AM EDT [facility] Lymphocytes Absolute 123(L) 570 - 4,860 /uL 10/28/2024 12:41 AM EDT [facility] Monocytes Absolute 299 0 - 1,296 /uL 10/28/2024 12:41 AM EDT [facility] Eosinophils Absolute 118 0 - 864 /uL 10/28/2024 12:41 AM EDT [facility] Basophils Absolute 20 0 - 108 /uL 10/28/2024 12:41 AM EDT [facility] Whole Blood 10/28/2024 12:0 5 AM EDT 10/28/2024 12:11 AM EDT Kemar Sahni MD LAB BLOOD ORDERABLES Final Result [facility] [address] [place] [address], [facility] * (ABNORMAL) CBC (10/28/2024 12:05 AM EDT) WBC 4.9 3.8 - 10.8 10E3/uL 10/28/2024 12:41 AM EDT [facility] RBC 2.18(L) 4.20 - 5.80 10E6/uL 10/28/2024 12:41 AM EDT [facility] Hemoglobin 6.7(L) 13.2 - 17.1 g/dL 10/28/2024 12:41 AM EDT [facility] Hematocrit 19.2(L) 38.5 - 50.0 % 10/28/2024 12:41 AM EDT [facility] MCV 87.8 80.0 - 100.0 fL 10/28/2024 12:41 AM EDT [facility] MCH 30.6 27.0 - 33.0 pg 10/28/2024 12:41 AM EDT [facility] MCHC 34.8 32.0 - 36.0 g/dL 10/28/2024 12:41 AM EDT [facility] RDW 19.6(H) 11.0 - 15.0 % 10/28/2024 12:41 AM EDT [facility] Platelets 45(L) 140 - 400 10E3/uL 10/28/2024 12:41 AM EDT [facility] Comment: CNV Specimen checked for clots. None detected. MPV 7.8 7.5 - 11.5 fL 10/28/2024 12:41 AM EDT [facility] Whole Blood 10/28/2024 12:0 5 AM EDT 10/28/2024 12:11 AM EDT us Kemar Sahni MD LAB BLOOD ORDERABLES Final Result Performing Organization Address City/[facility]/ZIP Co de Phone Number [facility] [address] [facility]. [address] * (ABNORMAL) POC Glucose Monitoring Device (10/28/2024 12:03 AM EDT) POC Glucose Monitoring Device 122(H) 70 - 100 mg/dL 10/28/2024 12:04 AM EDT [facility] Blood 10/28/2024 12:0 3 AM EDT 10/28/2024 12:04 AM EDT Havrey Domínguez III, MD POINT OF CARE TEST ORDERABLES Final Result Performing Organization Address [facility]/ZIP Co de Phone Number [facility] [address] [facility]. [address] * (ABNORMAL) POC Glucose Monitoring Device (10/27/2024 10:03 PM EDT) POC Glucose Monitoring Device 127(H) 70 - 100 mg/dL 10/27/2024 10:03 PM EDT [facility] Blood 10/27/2024 10:0 3 PM EDT 10/27/2024 10:03 PM EDT Harvey Domínguez III, MD POINT OF CARE TEST ORDERABLES Final Result Performing Organization Address City/[facility]/ZIP Co de Phone Number [facility] [address] [facility]. [address] * (ABNORMAL) POC Glucose Monitoring Device (10/27/2024 8:06 PM EDT) POC Glucose Monitoring Device 128(H) 70 - 100 mg/dL 10/27/2024 8:45 PM EDT [facility] Blood 10/27/2024 8:06 PM EDT 10/27/2024 8:45 PM EDT us Harvey Domínguez III, MD POINT OF CARE TEST ORDERABLES Final Result Performing Organization Address [facility] Co de Phone Number [facility] [address] * (ABNORMAL) POC Glucose Monitoring Device (10/27/2024 6:00 PM EDT) POC Glucose Monitoring Device 128(H) 70 - 100 mg/dL 10/27/2024 6:00 PM EDT [facility] Blood 10/27/2024 6:00 PM EDT 10/27/2024 6:00 PM EDT us Harvey Domínguez III, MD POINT OF CARE TEST ORDERABLES Final Result Performing Organization Address [facility] Co de Phone Number [facility] [address] [facility]. [address] * Lactic Acid, STAT (10/27/2024 5:41 PM EDT) Lactate 0.5 0.5 - 2.2 mmol/L 10/27/2024 6:28 PM EDT [facility] Plasma 10/27/2024 5:41 PM EDT 10/27/2024 5:49 PM EDT Narrative [facility] - 10/27/2024 6:28 PM EDT Redraw us John Moreno MD LAB BLOOD ORDERABLES Final R esult Performing Organization Address [facility] Co de Phone Number [facility] [address] [facility]. [address] * (ABNORMAL) Hepatic Function Panel, STAT (10/27/2024 5:13 PM EDT) Total Bilirubin 1.7(H) 0.0 - 1.5 mg/dL 10/27/2024 5:50 PM EDT [facility] Bilirubin, Direct 1.17(H) 0.00 - 0.40 mg/dL 10/27/2024 5:50 PM EDT [facility] AST 60(H) 13 - 39 U/L 10/27/2024 5:50 PM EDT [facility] ALT 134(H) 7 - 52 U/L 10/27/2024 5:50 PM EDT [facility] Alkaline Phosphatase 27(L) 36 - 125 U/L 10/27/2024 5:50 PM EDT [facility] Total Protein 4.1(L) 6.4 - 8.9 g/dL 10/27/2024 5:50 PM EDT [facility] Albumin 2.9(L) 3.5 - 5.7 g/dL 10/27/2024 5:50 PM EDT [facility] Bilirubin, Indirect 0.53 0.00 - 1.10 mg/dL 10/27/2024 5:50 PM EDT [facility] Plasma 10/27/2024 5:13 PM EDT 10/27/2024 5:23 PM EDT us Shay Plata MD LAB BLOOD ORDERABLES Final Result [facility] [address] [id number] * (ABNORMAL) TEG-Bypass/ECMO/Liver HN (Factor function, Platelet/Fibrin Clot Strength w/Clot Breakdown, Heparinase In All Channels) (10/27/2024 5:13 PM EDT) Citrated Kaolin Reaction Time (TEGECMOLIVER) 8.0 4.6 - 9.1 minutes 10/27/2024 6:56 PM EDT [facility] Citrated Kaolin W/Heparinase Reaction Time (TEGECMOLIVER) 6.8 4.3 - 8.3 minutes 10/27/2024 6:56 PM EDT [facility] Citrated Kaolin Maximum Amplitude (TEGECMOLIVER) 55.4 52.0 - 69.0 mm 10/27/2024 6:56 PM EDT [facility] Citrated Functional Fibrinogen W/Heparinase Maximum Amplitude(TEGEC MOLIVER) 22.9 15.0 - 34.0 mm 10/27/2024 6:56 PM EDT [facility] Citrated Rapid Teg W/Heparinase Maximum Amplitude (TEGECMOLIVER) 50.8(L) 53.0 - 69.0 mm 10/27/2024 6:56 PM EDT [facility] Citrated Kaolin w/Heparinase Percent Lysis (TEGECMOLIVER) 0.1 0.0 - 3.2 % 10/27/2024 6:56 PM EDT [facility] Whole Blood (Citrate) 10/27/2024 5:13 PM EDT 10/27/2024 5:20 PM EDT Kemar Sahni MD LAB BLOOD ORDERABLES Final Result Performing Organization Address [facility] de Phone Number [facility] [address] * (ABNORMAL) Protime-INR (10/27/2024 5:13 PM EDT) Protime 15.2(H) 12.1 - 15.1 seconds 10/27/2024 5:40 PM EDT [facility] INR 1.1 0.9 - 1.1 10/27/2024 5:40 PM EDT [facility] Comment: RECOMMENDED THERAPEUTIC RANGES USING INR : Stable oral anticoagulant therapy: 2.0 - 3.0 Mechanical prosthetic heart valve: 2.5 - 3.5 Recurrent acute myocardial infarction: 2.5 - 3.5 Plasma 10/27/2024 5:13 PM EDT 10/27/2024 5:23 PM EDT Kemar Sahni MD LAB BLOOD ORDERABLES Final Result Performing Organization Address City/[facility] Co de Phone Number [facility] [address] [facility]. [address] * Magnesium (10/27/2024 5:13 PM EDT) Magnesium 2.4 1.5 - 2.5 mg/dL 10/27/2024 5:53 PM EDT [facility] Plasma 10/27/2024 5:13 PM EDT 10/27/2024 5:23 PM EDT Result [facility] Kemar Sahni MD LAB BLOOD ORDERABLES Final Result [facility] [address] [facility]. [address] * (ABNORMAL) Hepatic Function Panel (10/27/2024 5:13 PM EDT) Total Bilirubin 1.7(H) 0.0 - 1.5 mg/dL 10/27/2024 5:53 PM EDT [facility] Bilirubin, Direct 1.10(H) 0.00 - 0.40 mg/dL 10/27/2024 5:53 PM EDT [facility] AST 62(H) 13 - 39 U/L 10/27/2024 5:53 PM EDT [facility] ALT 134(H) 7 - 52 U/L 10/27/2024 5:53 PM EDT [facility] Alkaline Phosphatase 27(L) 36 - 125 U/L 10/27/2024 5:53 PM EDT [facility] Total Protein 4.1(L) 6.4 - 8.9 g/dL 10/27/2024 5:53 PM EDT [facility] Albumin 2.9(L) 3.5 - 5.7 g/dL 10/27/2024 5:53 PM EDT [facility] Bilirubin, Indirect 0.60 0.00 - 1.10 mg/dL 10/27/2024 5:53 PM EDT [facility] Plasma 10/27/2024 5:13 PM EDT 10/27/2024 5:23 PM EDT Kemar Sahni MD LAB BLOOD ORDERABLES Final Result [facility] [address] * (ABNORMAL) Renal Function Panel w/EGFR (10/27/2024 5:13 PM EDT) Sodium 142 133 - 146 mmol/L 10/27/2024 5:53 PM EDT [facility] Potassium 3.4(L) 3.5 - 5.3 mmol/L 10/27/2024 5:53 PM EDT [facility] Chloride 109 98 - 110 mmol/L 10/27/2024 5:53 PM EDT [facility] CO2 22 21 - 33 mmol/L 10/27/2024 5:53 PM EDT [facility] Anion Gap 11 3 - 16 mmol/L 10/27/2024 5:53 PM EDT [facility] BUN 61(H) 7 - 25 mg/dL 10/27/2024 5:53 PM EDT [facility] Creatinine 2.42(H) 0.60 - 1.30 mg/dL 10/27/2024 5:53 PM EDT [facility] Glucose 125(H) 70 - 100 mg/dL 10/27/2024 5:53 PM EDT [facility] Calcium 8.8 8.6 - 10.3 mg/dL 10/27/2024 5:53 PM EDT [facility] Phosphorus 5.7(H) 2.1 - 4.7 mg/dL 10/27/2024 5:53 PM EDT [facility] Albumin 2.9(L) 3.5 - 5.7 g/dL 10/27/2024 5:53 PM EDT [facility] Osmolality, Calculated 313(H) 278 - 305 mOsm/kg 10/27/2024 5:53 PM EDT [facility] EGFR 34 10/27/2024 5:53 PM EDT [facility] Comment:As of [...] Sahni MD LAB BLOOD ORDERABLES Final Result [facility] [address] [place] [address], [facility] * (ABNORMAL) CBC (10/27/2024 5:13 PM EDT) WBC 4.9 3.8 - 10.8 10E3/uL 10/27/2024 6:14 PM EDT [facility] RBC 2.44(L) 4.20 - 5.80 10E6/uL 10/27/2024 6:14 PM EDT [facility] Hemoglobin 7.4(L) 13.2 - 17.1 g/dL 10/27/2024 6:14 PM EDT [facility] Hematocrit 21.4(L) 38.5 - 50.0 % 10/27/2024 6:14 PM EDT [facility] MCV 87.6 80.0 - 100.0 fL 10/27/2024 6:14 PM EDT [facility] MCH 30.3 27.0 - 33.0 pg 10/27/2024 6:14 PM EDT [facility] MCHC 34.6 32.0 - 36.0 g/dL 10/27/2024 6:14 PM EDT [facility] RDW 19.6(H) 11.0 - 15.0 % 10/27/2024 6:14 PM EDT [facility] Platelets 47(L) 140 - 400 10E3/uL 10/27/2024 6:14 PM EDT [facility] Comment: CNV Specimen checked for clots. None detected. MPV 8.1 7.5 - 11.5 fL 10/27/2024 6:14 PM EDT [facility] Whole Blood 10/27/2024 5:13 PM EDT 10/27/2024 5:23 PM EDT Kemar Sahni MD LAB BLOOD ORDERABLES Final Result Performing Organization Address City/[facility]/ZIP Co de Phone Number [facility] [address] * (ABNORMAL) POC Glucose Monitoring Device (10/27/2024 3:57 PM EDT) [facility] POC Glucose Monitoring Device 131(H) 70 - 100 mg/dL 10/27/2024 3:58 PM EDT [facility] Blood 10/27/2024 3:57 PM EDT 10/27/2024 3:58 PM EDT Harvey Domínguez III, MD POINT OF CARE TEST ORDERABLES Final Result Performing Organization Address [facility] Co de Phone Number [facility] [address] * (ABNORMAL) CBC, STAT (10/27/2024 2:40 PM EDT) WBC 5.8 3.8 - 10.8 10E3/uL 10/27/2024 2:54 PM EDT [facility] RBC 2.43(L) 4.20 - 5.80 10E6/uL 10/27/2024 2:54 PM EDT [facility] Hemoglobin 7.5(L) 13.2 - 17.1 g/dL 10/27/2024 2:54 PM EDT [facility] Hematocrit 21.5(L) 38.5 - 50.0 % 10/27/2024 2:54 PM EDT [facility] MCV 88.2 80.0 - 100.0 fL 10/27/2024 2:54 PM EDT [facility] MCH 30.7 27.0 - 33.0 pg 10/27/2024 2:54 PM EDT [facility] MCHC 34.8 32.0 - 36.0 g/dL 10/27/2024 2:54 PM EDT [facility] RDW 19.1(H) 11.0 - 15.0 % 10/27/2024 2:54 PM EDT [facility] Platelets 50(L) 140 - 400 10E3/uL 10/27/2024 2:54 PM EDT [facility] MPV 7.5 7.5 - 11.5 fL 10/27/2024 2:54 PM EDT [facility] Whole Blood 10/27/2024 2:40 PM EDT 10/27/2024 2:44 PM EDT us John Moreno MD LAB BLOOD ORDERABLES Final R esult [facility] [address] [place] [address], [facility] * (ABNORMAL) Blood Gas, Arterial, STAT (10/27/2024 2:40 PM EDT) O2 Sat, Arterial 98 10/27/2024 2:46 PM EDT [facility] FIO2 RA 10/27/2024 2:46 PM EDT [facility] pH, Arterial 7.37 7.35 - 7.45 10/27/2024 2:46 PM EDT [facility] pCO2, Arterial 35 35 - 45 mm Hg 10/27/2024 2:46 PM EDT [facility] pO2, Arterial 92 80 - 100 mm Hg 10/27/2024 2:46 PM EDT [facility] HCO3, Arterial 21(L) 22 - 26 mmol/L 10/27/2024 2:46 PM EDT [facility] CO2 Content,Arteri al 21(L) 23 - 27 mmol/L 10/27/2024 2:46 PM EDT [facility] Base Excess, Arterial -4.6(L) -2.0 - 3.0 mmol/L 10/27/2024 2:46 PM EDT [facility] %HBO2, Arterial 95.4 95.0 - 98.0 % 10/27/2024 2:46 PM EDT [facility] Carboxyhemoglo bin, Arterial 1.6 % 10/27/2024 2:46 PM EDT [facility] Comment: CARBOXYHEMOGLOBIN (CO) REFERENCE RANGES: Non-Smokers: <2 % Smokers: <8 % TOXIC: >20 % Methemoglobin, Arterial 1.0 0.0 - 1.5 % 10/27/2024 2:46 PM EDT [facility] Reduced hemoglobin, Arterial 2.1 0.0 - 5.0 % 10/27/2024 2:46 PM EDT [facility] Blood, Arterial 10/27/2024 2 :40 PM EDT 10/27/2024 2:44 PM EDT Narrative [facility] - 10/27/2024 2:46 PM EDT Post extubation John Moreno MD LAB BLOOD ORDERABLES Final R esult Performing Organization Address City/[facility]/ZIP Co de Phone Number [facility] [address] [facility]. [address] * (ABNORMAL) POC Glucose Monitoring Device (10/27/2024 2:06 PM EDT) POC Glucose Monitoring Device 134(H) 70 - 100 mg/dL 10/27/2024 2:06 PM EDT [facility] Blood 10/27/2024 2:06 PM EDT 10/27/2024 2:06 PM EDT Harvey Domínguez III, MD POINT OF CARE TEST ORDERABLES Final Result Performing Organization Address [facility] Co de Phone Number [facility] [address] * (ABNORMAL) Blood gas, arterial (10/27/2024 12:35 PM EDT) O2 Sat, Arterial 99 10/27/2024 12:46 PM EDT [facility] FIO2 SBT 30% 10/27/2024 12:46 PM EDT [facility] pH, Arterial 7.35 7.35 - 7.45 10/27/2024 12:46 PM EDT [facility] pCO2, Arterial 37 35 - 45 mm Hg 10/27/2024 12:46 PM EDT [facility] pO2, Arterial 182(H) 80 - 100 mm Hg 10/27/2024 12:46 PM EDT [facility] HCO3, Arterial 21(L) 22 - 26 mmol/L 10/27/2024 12:46 PM EDT [facility] CO2 Content,Arteri al 22(L) 23 - 27 mmol/L 10/27/2024 12:46 PM EDT [facility] Base Excess, Arterial -4.8(L) -2.0 - 3.0 mmol/L 10/27/2024 12:46 PM EDT [facility] %HBO2, Arterial 96.3 95.0 - 98.0 % 10/27/2024 12:46 PM EDT [facility] Carboxyhemoglo bin, Arterial 1.7 % 10/27/2024 12:46 PM EDT [facility] Comment: CARBOXYHEMOGLOBIN (CO) REFERENCE RANGES: Non-Smokers: <2 % Smokers: <8 % TOXIC: >20 % Methemoglobin, Arterial 1.4 0.0 - 1.5 % 10/27/2024 12:46 PM EDT [facility] Reduced hemoglobin, Arterial 0.6 0.0 - 5.0 % 10/27/2024 12:46 PM EDT [facility] Blood, Arterial 10/27/2024 1 2:35 PM EDT 10/27/2024 12:42 PM EDT Narrative [facility] - 10/27/2024 12:46 PM EDT Please obtain post SBT us Shay Sifeuntes MD LAB BLOOD ORDERABLES Final Resu lt [facility] [address] [place] [address], [facility] * (ABNORMAL) TEG-Bypass/ECMO/Liver HN (Factor function, Platelet/Fibrin Clot Strength w/Clot Breakdown, Heparinase In All Channels) (10/27/2024 12:07 PM EDT) Citrated Kaolin Reaction Time (TEGECMOLIVER) 7.9 4.6 - 9.1 minutes 10/27/2024 1:24 PM EDT [facility] Citrated Kaolin W/Heparinase Reaction Time (TEGECMOLIVER) 8.3 4.3 - 8.3 minutes 10/27/2024 1:24 PM EDT [facility] Citrated Kaolin Maximum Amplitude (TEGECMOLIVER) 52.0 52.0 - 69.0 mm 10/27/2024 1:24 PM EDT [facility] Citrated Functional Fibrinogen W/Heparinase Maximum Amplitude(TEGEC MOLIVER) 20.1 15.0 - 34.0 mm 10/27/2024 1:24 PM EDT [facility] Citrated Rapid Teg W/Heparinase Maximum Amplitude (TEGECMOLIVER) 49.4(L) 53.0 - 69.0 mm 10/27/2024 1:24 PM EDT [facility] Citrated Kaolin w/Heparinase Percent Lysis (TEGECMOLIVER) 0.0 0.0 - 3.2 % 10/27/2024 1:24 PM EDT [facility] Whole Blood (Citrate) 10/27/2024 12:07 PM EDT 10/27/2024 12:09 PM EDT Kemar Sahni MD LAB BLOOD ORDERABLES Final Result Performing Organization Address [facility]/ZIP Co de Phone Number [facility] [address] * (ABNORMAL) POC Glucose Monitoring Device (10/27/2024 12:01 PM EDT) POC Glucose Monitoring Device 121(H) 70 - 100 mg/dL 10/27/2024 12:02 PM EDT [facility] Blood 10/27/2024 12:0 1 PM EDT 10/27/2024 12:01 PM EDT Harvey Domínguez III, MD POINT OF CARE TEST ORDERABLES Final Result [facility] [address] * (ABNORMAL) POC Glucose Monitoring Device (10/27/2024 10:59 AM EDT) POC Glucose Monitoring Device 126(H) 70 - 100 mg/dL 10/27/2024 11:10 AM EDT [facility] Blood 10/27/2024 10:5 9 AM EDT 10/27/2024 11:10 AM EDT Harvey Domínguez III, MD POINT OF CARE TEST ORDERABLES Final Result Performing Organization Address [facility] Co de Phone Number [facility] [address] * ECG 12 lead (MUSE) (10/27/2024 10:17 AM EDT) 10/27/2024 10:1 7 AM EDT Narrative MUSE - 10/27/2024 2:51 PM EDT Ventricular Rate: 91 BPM Atrial Rate: 91 BPM P-R Interval: 168 ms QRS Duration: 90 ms QT: 274 ms QTc: 337 ms P Martin: 60 degrees R Martin: -30 degrees T Martin: -15 degrees Diagnosis Line: NORMAL SINUS RHYTHM ^ LEFT AXIS DEVIATION, LEFT ANTERIOR HEMIBLOCK ^ NONSPECIFIC T WAVE CHANGE ^ ABNORMAL ECG ^ ^ Confirmed by MD ROLLY, [facility] ([id number]) on 10/27/2024 2:51:52 PM Shay Sifuentes MD ECG ORDERABLES Final Result Performing Organization Address [facility] de Phone Number MUSE * (ABNORMAL) POC Glucose Monitoring Device (10/27/2024 10:00 AM EDT) POC Glucose Monitoring Device 121(H) 70 - 100 mg/dL 10/27/2024 10:01 AM EDT [facility] Blood 10/27/2024 10:0 0 AM EDT 10/27/2024 10:01 AM EDT Harvey Domínguez III, MD POINT OF CARE TEST ORDERABLES Final Result Performing Organization Address [facility] Co de Phone Number [facility] [address] * US Renal Transplant (10/27/2024 9:51 AM [...] 10:28 AM EDT us Sveta Judge MD IM US ORDERABLES Final Result * US Duplex [id number]-[id number] Comp (10/27/2024 9:51 AM EDT) Anatomical Region [...] EXAM: US ABDOMEN LIMITED EXAM: US DUPLEX [id number] COMPLETE INDICATION: Post-op liver transplant COMPARISON: None [...] absent.. Pancreas: Obscured by overlying bowel gas. [place] right kidney: 12.5 cm in length. Normal [...] EXAM: US ABDOMEN LIMITED EXAM: US DUPLEX [id number] COMPLETE INDICATION: Post-op liver transplant COMPARISON: None [...] absent.. Pancreas: Obscured by overlying bowel gas. [place] right kidney: 12.5 cm in length. Normal [...] 10:38 AM EDT us Sveta Judge MD [facility] US ORDERABLES Final Result * US Abdomen [...] EXAM: US ABDOMEN LIMITED EXAM: US DUPLEX [id number] COMPLETE INDICATION: Post-op liver transplant COMPARISON: None [...] absent.. Pancreas: Obscured by overlying bowel gas. [place] right kidney: 12.5 cm in length. Normal [...] EXAM: US ABDOMEN LIMITED EXAM: US DUPLEX [id number] COMPLETE INDICATION: Post-op liver transplant COMPARISON: None [...] absent.. Pancreas: Obscured by overlying bowel gas. [place] right kidney: 12.5 cm in length. Normal [...] 10:38 AM EDT us Sveta Judge MD [facility] US ORDERABLES Final Result * CARISA Rhythm Strip - Scan (10/27/2024 9:25 AM EDT) us Scanning Uchhim SCAN DOCS - NO RESULTS Final Res ult * (ABNORMAL) POC Glucose Monitoring Device (10/27/2024 9:05 AM EDT) POC Glucose Monitoring Device 118(H) 70 - 100 mg/dL 10/27/2024 9:06 AM EDT [facility] Blood 10/27/2024 9:05 AM EDT 10/27/2024 9:06 AM EDT us Harvey Domínguez III, MD POINT OF CARE TEST ORDERABLES Final Result [facility] [address] [place] [address], [facility] * X-ray Portable Chest (10/27/2024 8:58 [...] Protime-INR, STAT (10/27/2024 8:16 AM EDT) Pathologist [facility] Protime 16.2(H) 12.1 - 15.1 seconds 10/27/2024 8:35 AM EDT [facility] INR 1.2(H) 0.9 - 1.1 10/27/2024 8:35 AM EDT [facility] Comment: RECOMMENDED THERAPEUTIC RANGES USING INR : Stable oral anticoagulant therapy: 2.0 - 3.0 Mechanical prosthetic heart valve: 2.5 - 3.5 Recurrent acute myocardial infarction: 2.5 - 3.5 Plasma 10/27/2024 8:16 AM EDT 10/27/2024 8:20 AM EDT John Moreno MD LAB BLOOD ORDERABLES Final R esult [facility] [address] * Magnesium (10/27/2024 8:00 AM EDT) [facility] Magnesium 1.8 1.5 - 2.5 mg/dL 10/27/2024 10:50 AM EDT [facility] Plasma 10/27/2024 8:00 AM EDT 10/27/2024 10:31 AM EDT Kemar Sahni MD LAB BLOOD ORDERABLES Final Result [facility] [address] * (ABNORMAL) Renal Function Panel w/EGFR (10/27/2024 8:00 AM EDT) [facility] Sodium 142 133 - 146 mmol/L 10/27/2024 10:18 AM EDT [facility] Potassium 3.0(L) 3.5 - 5.3 mmol/L 10/27/2024 10:18 AM EDT [facility] Chloride 109 98 - 110 mmol/L 10/27/2024 10:18 AM EDT [facility] CO2 21 21 - 33 mmol/L 10/27/2024 10:18 AM EDT [facility] Anion Gap 12 3 - 16 mmol/L 10/27/2024 10:18 AM EDT [facility] BUN 59(H) 7 - 25 mg/dL 10/27/2024 10:18 AM EDT [facility] Creatinine 2.54(H) 0.60 - 1.30 mg/dL 10/27/2024 10:18 AM EDT [facility] Glucose 111(H) 70 - 100 mg/dL 10/27/2024 10:18 AM EDT [facility] Calcium 9.1 8.6 - 10.3 mg/dL 10/27/2024 10:18 AM EDT [facility] Phosphorus 5.5(H) 2.1 - 4.7 mg/dL 10/27/2024 10:18 AM EDT [facility] Albumin 3.0(L) 3.5 - 5.7 g/dL 10/27/2024 10:18 AM T [facility] Osmolality, Calculated 311(H) 278 - 305 mOsm/kg 10/27/2024 10:18 AM EDT [facility] EGFR 32 10/27/2024 10:18 AM EDT [facility] Comment:As of [...] Sahni MD LAB BLOOD ORDERABLES Final Result [facility] [address] * (ABNORMAL) Hepatic Function Panel, STAT (10/27/2024 8:00 AM EDT) Total Bilirubin 1.3 0.0 - 1.5 mg/dL 10/27/2024 8:51 AM EDT [facility] Bilirubin, Direct 0.93(H) 0.00 - 0.40 mg/dL 10/27/2024 8:51 AM EDT [facility] AST 88(H) 13 - 39 U/L 10/27/2024 8:51 AM EDT [facility] ALT 149(H) 7 - 52 U/L 10/27/2024 8:51 AM EDT [facility] Alkaline Phosphatase 26(L) 36 - 125 U/L 10/27/2024 8:51 AM EDT [facility] Total Protein 4.0(L) 6.4 - 8.9 g/dL 10/27/2024 8:51 AM EDT [facility] Albumin 3.0(L) 3.5 - 5.7 g/dL 10/27/2024 8:51 AM EDT [facility] Bilirubin, Indirect 0.37 0.00 - 1.10 mg/dL 10/27/2024 8:51 AM EDT [facility] Plasma 10/27/2024 8:00 AM EDT 10/27/2024 8:20 AM EDT us Harvey Domínguez III, MD LAB BLOOD ORDERABLE S Final Result [facility] [address] * (ABNORMAL) Lactic Acid, STAT (10/27/2024 8:00 AM EDT) Lactate 0.4(L) 0.5 - 2.2 mmol/L 10/27/2024 8:43 AM EDT [facility] Plasma 10/27/2024 8:00 AM EDT 10/27/2024 8:20 AM EDT Harvey Domínguez III, MD LAB BLOOD ORDERABLE S Final Result Performing Organization Address City/State/[facility] Co de Phone Number [facility] [address] [place], [place] [address] * (ABNORMAL) Blood Gas, Arterial, STAT (10/27/2024 8:00 AM EDT) O2 Sat, Arterial 100 10/27/2024 8:23 AM EDT [facility] pH, Arterial 7.36 7.35 - 7.45 10/27/2024 8:23 AM EDT [facility] pCO2, Arterial 37 35 - 45 mm Hg 10/27/2024 8:23 AM EDT [facility] pO2, Arterial 245(H) 80 - 100 mm Hg 10/27/2024 8:23 AM EDT [facility] HCO3, Arterial 22 22 - 26 mmol/L 10/27/2024 8:23 AM EDT [facility] CO2 Content,Arteri al 22(L) 23 - 27 mmol/L 10/27/2024 8:23 AM EDT [facility] Base Excess, Arterial -4.2(L) -2.0 - 3.0 mmol/L 10/27/2024 8:23 AM EDT [facility] %HBO2, Arterial 96.5 95.0 - 98.0 % 10/27/2024 8:23 AM EDT [facility] Carboxyhemoglo bin, Arterial 2.2 % 10/27/2024 8:23 AM EDT [facility] Comment: CARBOXYHEMOGLOBIN (CO) REFERENCE RANGES: Non-Smokers: <2 % Smokers: <8 % TOXIC: >20 % Methemoglobin, Arterial 1.2 0.0 - 1.5 % 10/27/2024 8:23 AM EDT [facility] Reduced hemoglobin, Arterial 0.0 0.0 - 5.0 % 10/27/2024 8:23 AM EDT [facility] Blood, Arterial 10/27/2024 8 :00 AM EDT 10/27/2024 8:19 AM EDT Narrative [facility] - 10/27/2024 8:23 AM EDT Specimen is beyond 15 minutes from time of collection. Results may be compromised. Review results critically. Kemar Sahni MD LAB BLOOD ORDERABLES Final Result [facility] [address] [place] [address], [facility] * (ABNORMAL) TEG-Bypass/ECMO/Liver HN (Factor function, Platelet/Fibrin Clot Strength w/Clot Breakdown, Heparinase In All Channels) (10/27/2024 8:00 AM EDT) Citrated Kaolin Reaction Time (TEGECMOLIVER) 7.8 4.6 - 9.1 minutes 10/27/2024 9:39 AM EDT [facility] Citrated Kaolin W/Heparinase Reaction Time (TEGECMOLIVER) 8.0 4.3 - 8.3 minutes 10/27/2024 9:39 AM EDT [facility] Citrated Kaolin Maximum Amplitude (TEGECMOLIVER) 52.7 52.0 - 69.0 mm 10/27/2024 9:39 AM EDT [facility] Citrated Functional Fibrinogen W/Heparinase Maximum Amplitude(TEGEC MOLIVER) 19.0 15.0 - 34.0 mm 10/27/2024 9:39 AM EDT [facility] Citrated Rapid Teg W/Heparinase Maximum Amplitude (TEGECMOLIVER) 49.5(L) 53.0 - 69.0 mm 10/27/2024 9:39 AM EDT [facility] Citrated Kaolin w/Heparinase Percent Lysis (TEGECMOLIVER) 0.0 0.0 - 3.2 % 10/27/2024 9:39 AM EDT [facility] Whole Blood (Citrate) 10/27/2024 8:00 AM EDT 10/27/2024 8:19 AM EDT us Kemar Sahni MD LAB BLOOD ORDERABLES Final Result [facility] [address] Garcia. [address] * (ABNORMAL) Katie-Watkins virus VCA IgG Antibody (10/27/2024 8:00 AM EDT) EBV VCA IgG Positive( A) Negative 10/27/2024 11:30 AM EDT [facility] Comment:Presence of detectab le VCA IgG antibodies. 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 EBV IGG NUM 314.00(H) 0.00 - 17.99 U/mL 10/27/2024 11:30 AM EDT [facility] Serum 10/27/2024 8:00 AM EDT 10/27/2024 8:20 AM EDT Result [facility] Kemar Sahni MD LAB BLOOD ORDERABLES Final Result Performing Organization Address [facility] [facility] Co de Phone Number [facility] [address] [facility]. [address] * Hemoglobin A1c (10/27/2024 8:00 AM EDT) Pathologist [facility] Hemoglobin A1C 5.0 4.0 - 5.6 % 10/27/2024 11:12 AM EDT [facility] Comment: Hemoglobin A1c Interpretation Guidelines: [...] AM EDT 10/27/2024 8:20 AM EDT Result [facility] Kemar Sahni MD LAB BLOOD ORDERABLES Final Result [facility] [address] * (ABNORMAL) POC Glucose Monitoring Device (10/27/2024 7:59 AM EDT) POC Glucose Monitoring Device 113(H) 70 - 100 mg/dL 10/27/2024 7:59 AM EDT [facility] Blood 10/27/2024 7:59 AM EDT 10/27/2024 7:59 AM EDT Harvey Domínguez III, MD POINT OF CARE TEST ORDERABLES Final Result Performing Organization Address City/[facility]/ZIP Co de Phone Number [facility] [address] * X-ray Abdomen AP view (10/27/2024 [...] Units (10/27/2024 6:16 AM EDT) Product Code U1090Q77 HCLL Unit Number [id number] HCLL Dispense Status Presumed Transfused_PT HCLL Blood Expiration Date HCLL Coding System BCHX440 HCLL Product Code Q9402A64 HCLL Unit Number [id number] HCLL Dispense Status Presumed Transfused_PT HCLL Blood Expiration Date [id number] HCLL Coding System [id number] HCLL Blood Bank Product John Pina MD BLOOD BANK PRODUCT ORDERABLES F inal Result HCLL * Prepare Platelets, leukoreduced, 1 Units (10/27/2024 6:16 AM EDT) Product Code L0141E82 HCLL Unit Number [id number] HCLL Dispense Status Presumed Transfused_PT HCLL Blood Expiration Date 869869770041 HCLL Coding System CRSS724 HCLL Blood Bank Product Eber Quinones MD BLOOD BANK PRODUCT ORDER PAL Final Result Performing Organization Address [facility] Co de Phone Number HCLL * Prepare Cryoprecipitate, 1 Units (10/27/2024 6:16 AM EDT) Product Code G8111P75 HCLL Unit Number [id number] HCLL Dispense Status Presumed Transfused_PT HCLL Blood Expiration Date HCLL Coding System WZUU832 HCLL Product Code R0008E51 HCLL Unit Number [id number] HCLL Dispense Status Presumed Transfused_PT HCLL Blood Expiration Date 242901252633 HCLL Coding System BYPS612 HCLL Blood Bank Product Eber Quinones MD BLOOD BANK PRODUCT ORDER PAL Final Result Performing Organization Address [facility] de Phone Number HCLL * Prepare Fresh Frozen Plasma, 10 Units (10/27/2024 6:16 AM EDT) Product Code L3054O17 HCLL Unit Number [id number] HCLL Dispense Status Presumed Transfused_PT HCLL Blood Expiration Date 203444985465 HCLL Coding System BUKJ160 HCLL Product Code I4469G41 HCLL Unit Number [id number] HCLL Dispense Status Presumed Transfused_PT HCLL Blood Expiration Date 213246965595 HCLL Coding System HZQI715 HCLL Product Code T0662Q57 HCLL Unit Number [id number] HCLL Dispense Status Presumed Transfused_PT HCLL Blood Expiration Date HCLL Coding System RBOB930 HCLL Product Code E8016W14 HCLL Unit Number [id number] HCLL Dispense Status Presumed Transfused_PT HCLL Blood Expiration Date HCLL Coding System GJAE756 HCLL Product Code U2927O77 HCLL Unit Number [id number] HCLL Dispense Status Released from Crossmatch_RE HCLL Blood Expiration Date 979805185105 HCLL Coding System HQNT766 HCLL Product Code M0050S04 HCLL Unit Number [id number] HCLL Dispense Status Released from Crossmatch_RE HCLL Blood Expiration Date HCLL Coding System MDQI992 HCLL Product Code P5567M25 HCLL Unit Number [id number] HCLL Dispense Status Presumed Transfused_PT HCLL Blood Expiration Date HCLL Coding System SGNV082 HCLL Product Code F7721A30 HCLL Unit Number [id number] HCLL Dispense Status Presumed Transfused_PT HCLL Blood Expiration Date HCLL Coding System RSFH560 HCLL Product Code C3874S51 HCLL Unit Number [id number] HCLL Dispense Status Presumed Transfused_PT HCLL Blood Expiration Date HCLL Coding System TGQH751 HCLL Product Code W4275M50 HCLL Unit Number [id number] HCLL Dispense Status Presumed Transfused_PT HCLL Blood Expiration Date 923251223737 HCLL Coding System GWHP527 HCLL Blood Bank Product us Leandra Og MD BLOOD BANK PRODUCT ORD ERABLES Final Result HCLL * Prepare Platelets, leukoreduced, 1 Units (10/27/2024 6:16 AM EDT) Product Code H8303Y14 HCLL Unit Number [id number] HCLL Dispense Status Presumed Transfused_PT HCLL Blood Expiration Date 356908365111 HCLL Coding System UGMD578 HCLL Blood Bank Product us Ben Blake MD BLOOD BANK PRODUCT ORDERABLES Final Result Performing Organization Address [facility] de Phone Number HCLL * Prepare Fresh Frozen Plasma (10/27/2024 6:15 AM EDT) Product Code S7716H15 HCLL Unit Number [id number] HCLL Dispense Status Presumed Transfused_PT HCLL Blood Expiration Date HCLL Coding System XRXZ856 HCLL Product Code O6876K00 HCLL Unit Number [id number] HCLL Dispense Status Released from Crossmatch_RE HCLL Blood Expiration Date HCLL Coding System BADP158 HCLL Product Code L7246O60 HCLL Unit Number [id number] HCLL Dispense Status Presumed Transfused_PT HCLL Blood Expiration Date HCLL Coding System HAAC552 HCLL Product Code M9680G77 HCLL Unit Number [id number] HCLL Dispense Status Presumed Transfused_PT HCLL Blood Expiration Date HCLL Coding System FQRP547 HCLL Product Code Z2381A69 HCLL Unit Number [id number] HCLL Dispense Status Released from Crossmatch_RE HCLL Blood Expiration Date HCLL Coding System SDDV301 HCLL us Attending Provider Unknown BLOOD BANK PRODUCT OR DERABLES Final Result Performing Organization Address [facility] Co de Phone Number HCLL * Prepare RBC, leukoreduced (10/27/2024 6:15 AM EDT) Product Code X9705X83 HCLL Unit Number [id number] HCLL Dispense Status Presumed Transfused_PT HCLL Blood Expiration Date 710985115652 HCLL Coding System XJON559 HCLL Product Code E9498C40 HCLL Unit Number [id number] HCLL Dispense Status Released from Crossmatch_RE HCLL Blood Expiration Date HCLL Coding System IMSK514 HCLL Product Code I2547T29 HCLL Unit Number [id number] HCLL Dispense Status Released from Crossmatch_RE HCLL Blood Expiration Date 175637316285 HCLL Coding System YXOC146 HCLL Product Code P3979K06 HCLL Unit Number [id number] HCLL Dispense Status Released from Crossmatch_RE HCLL Blood Expiration Date 546307607643 HCLL Coding System QEPV719 HCLL Product Code G1607S63 HCLL Unit Number [id number] HCLL Dispense Status Released from Crossmatch_RE HCLL Blood Expiration Date 713212889780 HCLL Coding System XTEE623 HCLL us Attending Provider Unknown BLOOD BANK PRODUCT OR DERABLES Final Result HCLL * Prepare RBC, leukoreduced, 10 Units (10/27/2024 6:15 AM EDT) Product Code B9768R13 HCLL Unit Number [id number] HCLL Dispense Status Presumed Transfused_PT HCLL Blood Expiration Date HCLL Coding System CTNH050 HCLL Product Code O3806O42 HCLL Unit Number [id number] HCLL Dispense Status Presumed Transfused_PT HCLL Blood Expiration Date 729195763298 HCLL Coding System TNSB008 HCLL Product Code J7335W71 HCLL Unit Number [id number] HCLL Dispense Status Presumed Transfused_PT HCLL Blood Expiration Date HCLL Coding System XPYC864 HCLL Product Code X7827U69 HCLL Unit Number [id number] HCLL Dispense Status Presumed Transfused_PT HCLL Blood Expiration Date HCLL Coding System FPWN235 HCLL Product Code O5636O16 HCLL Unit Number [id number] HCLL Dispense Status Presumed Transfused_PT HCLL Blood Expiration Date HCLL Coding System DKOV245 HCLL Product Code N5855F26 HCLL Unit Number [id number] HCLL Dispense Status Presumed Transfused_PT HCLL Blood Expiration Date HCLL Coding System UAUU347 HCLL Product Code R9995R75 HCLL Unit Number [id number] HCLL Dispense Status Presumed Transfused_PT HCLL Blood Expiration Date HCLL Coding System JBRK269 HCLL Product Code U5908D40 HCLL Unit Number [id number] HCLL Dispense Status Presumed Transfused_PT HCLL Blood Expiration Date HCLL Coding System IJME122 HCLL Product Code D5125N46 HCLL Unit Number [id number] HCLL Dispense Status Presumed Transfused_PT HCLL Blood Expiration Date HCLL Coding System KYAI300 HCLL Product Code A0493N05 HCLL Unit Number [id number] HCLL Dispense Status Presumed Transfused_PT HCLL Blood Expiration Date 706193503342 HCLL Coding System EFUM148 HCLL Blood Bank Product us Leandra Og MD BLOOD BANK PRODUCT ORD ERABLES Final Result HCLL * Transfuse Platelets (10/27/2024 6:09 AM EDT) Ben Blake MD NURSING TREATMENT ORDERABLES - BLOOD ADMIN Final Result * (ABNORMAL) Arterial Blood Gas Panel (10/27/2024 6:09 AM EDT) O2Sat (ABGP) 100 10/27/2024 6:17 AM EDT [facility] pH (ABGP) 7.30(L) 7.35 - 7.45 10/27/2024 6:17 AM EDT [facility] PCO2 (ABGP) 41 35 - 45 mm Hg 10/27/2024 6:17 AM EDT [facility] PO2 (ABGP) 192(H) 80 - 100 mm Hg 10/27/2024 6:17 AM EDT [facility] HCO3 (ABGP) 21(L) 22 - 26 mmol/L 10/27/2024 6:17 AM EDT [facility] CO2 Content (ABGP) 22(L) 23 - 27 mmol/L 10/27/2024 6:17 AM T [facility] Base Excess (ABGP) -5.7(L) -2.0 - 3.0 mmol/L 10/27/2024 6:17 AM EDT [facility] Sodium (ABGP) 138 136 - 146 mEq/L 10/27/2024 6:17 AM [facility] Potassium (ABGP) 3.3(L) 3.5 - 5.0 mEq/L 10/27/2024 6:17 AM [facility] Comment:In the event of in-v itro hemolysis, potassium results may be falsely elevated. Always interpret lab results in conjunction with clinical findings. If hemolysis is suspected, a serum sample may be collected for repeat assessment of potassium. Calcium, Free (ABGP) 5.28 4.50 - 5.30 mg/dL 10/27/2024 6:17 AM [facility] Glucose (ABGP) 112(H) 70 - 100 mg/dL 10/27/2024 6:17 AM [facility] Comment:There is interferenc e with whole blood glucose results on this method when Hematocrit is <25% or >60%. HCT (ABGP) 20.0(L) 40.0 - 52.0 % 10/27/2024 6:17 AM [facility] HGB (ABGP) 6.5(L) 14.0 - 18.0 g/dL 10/27/2024 6:17 AM [facility] %HBO2 (ABGP) 96.8 95.0 - 98.0 % 10/27/2024 6:17 AM [facility] Carboxyhgb (ABGP) 2.1 % 025 6:17 AM [facility] Comment: CARBOXYHEMOGLOBIN (CO) REFERENCE RANGES: Non-Smokers: <2 % Smokers: <8 % TOXIC: >20 % Methemoglobin (ABGP) 1.0 0.0 - 1.5 % 10/27/2024 6:17 AM [facility] Reduced Hemoglobin (ABGP) 0.2 0.0 - 5.0 % 10/27/2024 6:17 AM EDT [facility] Lactic Acid (ABGP) 0.4(L) 0.5 - 1.6 mmol/L 10/27/2024 6:17 AM EDT [facility] Blood, Arterial 10/27/2024 6 :09 AM EDT 10/27/2024 6:14 AM EDT Ben Blake MD LAB BLOOD ORDERABLES Final Re sult Performing Organization Address City/[facility]/ZIP Co de Phone Number [facility] [address] * Transfuse Fresh Frozen Plasma (10/27/2024 [...] Glucose Monitoring Device (10/27/2024 4:46 AM EDT) [facility] POC Glucose Monitoring Device 124(H) 70 - 100 mg/dL 10/27/2024 4:47 AM EDT [facility] Blood 10/27/2024 4:46 AM EDT 10/27/2024 4:47 AM EDT Harvey Domínguez III, MD POINT OF CARE TEST ORDERABLES Final Result Performing Organization Address [facility] Co de Phone Number [facility] [address] * Transfuse Platelets (10/27/2024 4:24 AM EDT) us Ben Blake MD NURSING TREATMENT ORDERABLES - BLOOD ADMIN Final Result * Transfuse Fresh Frozen Plasma (10/27/2024 4:07 AM EDT) us Ben Blake MD NURSING TREATMENT ORDERABLES - BLOOD ADMIN Final Result * Transfuse RBC (10/27/2024 3:52 AM EDT) us Ben Blake MD NURSING TREATMENT ORDERABLES - BLOOD ADMIN Final Result * (ABNORMAL) Arterial Blood Gas Panel (10/27/2024 3:07 AM EDT) O2Sat (ABGP) 100 10/27/2024 3:21 AM EDT [facility] pH (ABGP) 7.32(L) 7.35 - 7.45 10/27/2024 3:21 AM EDT [facility] PCO2 (ABGP) 38 35 - 45 mm Hg 10/27/2024 3:21 AM EDT [facility] PO2 (ABGP) 176(H) 80 - 100 mm Hg 10/27/2024 3:21 AM EDT [facility] HCO3 (ABGP) 20(L) 22 - 26 mmol/L 10/27/2024 3:21 AM EDT [facility] CO2 Content (ABGP) 21(L) 23 - 27 mmol/L 10/27/2024 3:21 AM EDT [facility] Base Excess (ABGP) -6.0(L) -2.0 - 3.0 mmol/L 10/27/2024 3:21 AM EDT [facility] Sodium (ABGP) 138 136 - 146 mEq/L 10/27/2024 3:21 AM EDT [facility] Potassium (ABGP) 3.0(L) 3.5 - 5.0 mEq/L 10/27/2024 3:21 AM EDT [facility] Comment:In the event of in-v itro hemolysis, potassium results may be falsely elevated. Always interpret lab results in conjunction with clinical findings. If hemolysis is suspected, a serum sample may be collected for repeat assessment of potassium. Calcium, Free (ABGP) 5.28 4.50 - 5.30 mg/dL 10/27/2024 3:21 AM EDT [facility] Glucose (ABGP) 108(H) 70 - 100 mg/dL 10/27/2024 3:21 AM EDT [facility] Comment:There is interferenc e with whole blood glucose results on this method when Hematocrit is <25% or >60%. HCT (ABGP) 22.0(L) 40.0 - 52.0 % 10/27/2024 3:21 AM EDT [facility] HGB (ABGP) 7.3(L) 14.0 - 18.0 g/dL 10/27/2024 3:21 AM EDT [facility] %HBO2 (ABGP) 97.3 95.0 - 98.0 % 10/27/2024 3:21 AM EDT [facility] Carboxyhgb (ABGP) 1.9 % 025 3:21 AM EDT [facility] Comment: CARBOXYHEMOGLOBIN (CO) REFERENCE RANGES: Non-Smokers: <2 % Smokers: <8 % TOXIC: >20 % Methemoglobin (ABGP) 0.8 0.0 - 1.5 % 10/27/2024 3:21 AM EDT [facility] Reduced Hemoglobin (ABGP) 0.0 0.0 - 5.0 % 10/27/2024 3:21 AM EDT [facility] Lactic Acid (ABGP) 0.3(L) 0.5 - 1.6 mmol/L 10/27/2024 3:21 AM EDT [facility] Blood, Arterial 10/27/2024 3 :07 AM EDT 10/27/2024 3:14 AM EDT us Ben Blake MD LAB BLOOD ORDERABLES Final Re sult Performing Organization Address City/State/[facility] Co de Phone Number [facility] [address] * Surgical Pathology Exam (10/27/2024 2:38 AM EDT) Tissue LEFT KIDNEY STRUCTURE / Unknown 10/27/2024 2:38 AM EDT Narrative [facility] - 10/27/2024 12:00 AM EDT CASE: [id number] PATIENT: BLAIR GILBERT Clinical History: Transplant kidney with bile duct reconstruction Pre-Operative Diagnosis: Acute kidney injury superimposed on CKD Post-Operative Diagnosis: None Given Specimen(s) Submitted: A. baseline renal biopsy ; B. right lobe liver biopsy; C. left lobe liver biopsy CPT Code(s): 91344 X 1; 98060 X 2; 70674 X 4 Additional Information: FINAL DIAGNOSIS: A. [...] entirely submitted in cassette [id number]. (NAA Mckeon/rr) B. Received in formalin, labeled with the patient's name Blair Gilbert and right lobe liver biopsy are two green-brown tissue cores measuring 1.8 and 2.0 cm in length, each with a diameter of 0.1 cm, which are entirely submitted between blue biopsy sponges in cassette [id number]. (NAA Mckeon/ns) C. Received in formalin, [...] Pathologist signing this report is located at [facility], [address] [place] [address], [address], , CLIA ID: [id number] ADDENDUM: A. Kidney, allograft, baseline, wedge biopsy: [...] Pathologist signing this report is located at [facility], [address] [place] [address], [facility], , CLIA ID: [id number] us Kemar Sahni MD PATHOLOGY/CYTOLOGY ORDERABL ES Edited Result - Final Performing Organization Address City/[facility]/ZIP Co de Phone Number [facility] * Anaerobic culture (10/27/2024 2:15 AM EDT) Culture Result No Anaerobes Isolated in 5 Days [facility] Fluid SPECIMEN FROM KIDNEY / Unknown 10/27/2024 2:15 AM EDT 10/27/2024 4:24 AM EDT [facility] - 10/31/2024 11:43 AM EDT 1) perfusate us Harvey Domínguez III, MD MICROBIOLOGY - GENE RAL ORDERABLES Final Result Performing Organization Address [facility]/State/ZIP Co de Phone Number [address] * Fungus culture (10/27/2024 2:15 AM EDT) Culture Result No Fungus Isolated At 4 Weeks [facility] Fluid SPECIMEN FROM KIDNEY / Unknown 10/27/2024 2:15 AM EDT 10/27/2024 4:24 AM EDT Narrative [facility] - 11/24/2024 7:52 AM EDT 1) perfusate us Harvey Domínguez III, MD MICROBIOLOGY - GENE RAL ORDERABLES Final Result Performing Organization Address [facility] Co de Phone Number [facility] [address] [place] [address]. [address] * Routine Culture plus Stain (10/27/2024 2:15 AM EDT) [facility] Gram Stain Result No Polymorphonuclear Leukocytes Seen [facility] Gram Stain Result No Organisms Seen; [facility] Culture Result No Growth After 3 Days [facility] Fluid SPECIMEN FROM KIDNEY / Unknown 10/27/2024 2:15 AM EDT 10/27/2024 4:24 AM EDT Narrative [facility] - 10/30/2024 9:26 AM EDT 1) perfusate us Harvey Domínguez III, MD MICROBIOLOGY - GENE RAL ORDERABLES Final Result Performing Organization Address [facility] de Phone Number [facility] [address] [place] [address]. [address] * Transfuse Platelets Transfusion Rate: Per dept routine (10/27/2024 1:52 AM EDT) us John Pina MD NURSING TREATMENT ORDERABLES - BLOOD ADMIN Final Result Performing Organization Address [facility] de Phone Number EXTERNAL * Transfuse Platelets Transfusion Rate: Per dept routine, 1 Units (10/27/2024 1:52 AM EDT) us John Pina MD NURSING TREATMENT ORDERABLES - BLOOD ADMIN Final Result Performing Organization Address [facility] de Phone Number EXTERNAL * (ABNORMAL) TEG-Standard Global Hemostasis (Rapid TEG with Heparin Effect, Contains a Baseline TEG) (10/27/2024 1:51 AM EDT) Citrated Kaolin Reaction Time (TEGHEPARINASE) 10.6(H) 4.6 - 9.1 minutes 10/27/2024 2:44 AM EDT [facility] Citrated Rapid Teg Maximum Amplitude (TEGHEPARINASE) 42.3(L) 52.0 - 70.0 mm 10/27/2024 2:44 AM EDT [facility] Citrated Functional Fibrinogen Maximum Amplitude (TEGHEPARINASE) 15.0 15.0 - 32.0 mm 10/27/2024 2:44 AM EDT [facility] Citrated Kaolin W/Heparinase Reaction Time (TEGHEPARINASE) 10.5(H) 4.3 - 8.3 minutes 10/27/2024 2:44 AM EDT [facility] Citrated Kaolin K-Time (TEGHEPARINASE) 2.9(A) 0.8 - 2.1 minutes 10/27/2024 2:44 AM EDT [facility] Citrated Kaolin Angle (TEGHEPARINASE) 60.4(A) 63.0 - 78.0 degrees 10/27/2024 2:44 AM EDT [facility] Citrated Kaolin Maximum Amplitude (TEGHEPARINASE) 42.9(L) 52.0 - 69.0 mm 10/27/2024 2:44 AM EDT [facility] Citrated Functional Fibrinogen- Fibrinogen Level (TEGHEPARINASE) 273.7(L) 278.0 - 581.0 mg/dL 10/27/2024 2:44 AM EDT [facility] Whole Blood (Citrate) 10/27/2024 1:51 AM EDT 10/27/2024 2:03 AM EDT us John Pina MD LAB BLOOD ORDERABLES Final Resu lt [facility] [address] [place] [address], [facility] * (ABNORMAL) POC Glucose Monitoring Device (10/27/2024 1:50 AM EDT) POC Glucose Monitoring Device 121(H) 70 - 100 mg/dL 10/27/2024 1:51 AM EDT [facility] Blood 10/27/2024 1:50 AM EDT 10/27/2024 1:51 AM EDT us Harvey Domínguez III, MD POINT OF CARE TEST ORDERABLES Final Result Performing Organization Address [facility]/ZIP Co de Phone Number [facility] [address] [place] [address], [facility] * Transfuse Cryoprecipitate Transfusion Rate: Per dept routine (10/27/2024 1:25 AM EDT) us John Pina MD NURSING TREATMENT ORDERABLES - BLOOD ADMIN Final Result Performing Organization Address City/[facility] Co de Phone Number EXTERNAL * Transfuse Cryoprecipitate Transfusion Rate: Per dept routine, 1 Units (10/27/2024 1:25 AM EDT) Result Tiburcio Pina MD NURSING TREATMENT ORDERABLES - BLOOD ADMIN Final Result Performing Organization Address City/[facility] Co de Phone Number EXTERNAL * (ABNORMAL) POC Glucose Monitoring Device (10/27/2024 1:21 AM EDT) POC Glucose Monitoring Device 123(H) 70 - 100 mg/dL 10/27/2024 1:22 AM EDT [facility] Blood 10/27/2024 1:21 AM EDT 10/27/2024 1:21 AM EDT Result Tiburcio Domínguez III, MD POINT OF CARE TEST ORDERABLES Final Result Performing Organization Address [facility] Co de Phone Number [facility] [address] [place] [address], [facility] * Transfuse Fresh Frozen Plasma Transfusion Rate: Per dept routine (10/27/2024 1:03 AM EDT) Result Tiburcio Pina MD NURSING TREATMENT ORDERABLES - BLOOD ADMIN Final Result Performing Organization Address City/[facility] Co de Phone Number EXTERNAL * Transfuse Fresh Frozen Plasma Transfusion Rate: Per dept routine, 1 Units (10/27/2024 1:03 AM EDT) us John Pina MD NURSING TREATMENT ORDERABLES - BLOOD ADMIN Final Result EXTERNAL * Calcium Free, Serum (10/27/2024 12:13 AM EDT) Free Calcium, Ser 5.20 4.40 - 5.40 mg/dL 10/27/2024 12:37 AM EDT [facility] Comment:Free calcium levels vary inversely with pH by approximately 5% for each 0.1 unit of pH change. Assay results have been normalized to pH = 7.40. Serum 10/27/2024 12:1 3 AM EDT 10/27/2024 12:29 AM EDT Narrative [facility] - 10/27/2024 12:37 AM EDT This test has been developed and its performance characteristics determined by [facility] which is certified under the [...] Resu lt Performing Organization Address [facility] Co de Phone Number [facility] [address] * (ABNORMAL) Blood Gas, Arterial, STAT (10/27/2024 12:13 AM EDT) O2 Sat, Arterial 100 10/27/2024 12:23 AM EDT [facility] FIO2 30 10/27/2024 12:23 AM EDT [facility] pH, Arterial 7.32(L) 7.35 - 7.45 10/27/2024 12:23 AM EDT [facility] pCO2, Arterial 37 35 - 45 mm Hg 10/27/2024 12:23 AM EDT [facility] pO2, Arterial 137(H) 80 - 100 mm Hg 10/27/2024 12:23 AM EDT [facility] HCO3, Arterial 20(L) 22 - 26 mmol/L 10/27/2024 12:23 AM EDT [facility] CO2 Content,Arteri al 20(L) 23 - 27 mmol/L 10/27/2024 12:23 AM EDT [facility] Base Excess, Arterial -6.4(L) -2.0 - 3.0 mmol/L 10/27/2024 12:23 AM EDT [facility] %HBO2, Arterial 96.2 95.0 - 98.0 % 10/27/2024 12:23 AM EDT [facility] Carboxyhemoglo bin, Arterial 1.9 % 10/27/2024 12:23 AM EDT [facility] Comment: CARBOXYHEMOGLOBIN (CO) REFERENCE RANGES: Non-Smokers: <2 % Smokers: <8 % TOXIC: >20 % Methemoglobin, Arterial 1.5 0.0 - 1.5 % 10/27/2024 12:23 AM EDT [facility] Reduced hemoglobin, Arterial 0.4 0.0 - 5.0 % 10/27/2024 12:23 AM EDT [facility] Blood, Arterial 10/27/2024 1 2:13 AM EDT 10/27/2024 12:18 AM EDT us John Pina MD LAB BLOOD ORDERABLES Final Resu lt [facility] [address] [address], [facility] * (ABNORMAL) TEG-Bypass/ECMO/Liver HN (Factor function, Platelet/Fibrin Clot Strength w/Clot Breakdown, Heparinase In All Channels) (10/27/2024 12:13 AM EDT) [facility] Signature Citrated Kaolin Reaction Time (TEGECMOLIVER) 9.1 4.6 - 9.1 minutes 10/27/2024 1:43 AM EDT [facility] Citrated Kaolin W/Heparinase Reaction Time (TEGECMOLIVER) 9.7(H) 4.3 - 8.3 minutes 10/27/2024 1:43 AM EDT [facility] Citrated Kaolin Maximum Amplitude (TEGECMOLIVER) <40.0(L) 52.0 - 69.0 mm 10/27/2024 1:43 AM EDT [facility] Citrated Functional Fibrinogen W/Heparinase Maximum Amplitude(TEGEC MOLIVER) 11.9(L) 15.0 - 34.0 mm 10/27/2024 1:43 AM EDT [facility] Citrated Rapid Teg W/Heparinase Maximum Amplitude (TEGECMOLIVER) 31.6(L) 53.0 - 69.0 mm 10/27/2024 1:43 AM EDT [facility] Citrated Kaolin w/Heparinase Percent Lysis (TEGECMOLIVER) 0.0 0.0 - 3.2 % 10/27/2024 1:43 AM EDT [facility] Whole Blood (Citrate) 10/27/2024 12:13 AM EDT 10/27/2024 12:18 AM EDT Kemar Shani MD LAB BLOOD ORDERABLES Final Result Performing Organization Address [facility] Co de Phone Number [facility] [address] [facility]. [address] * (ABNORMAL) Lactic Acid (10/27/2024 12:13 AM EDT) Lactate 0.2(L) 0.5 - 2.2 mmol/L 10/27/2024 12:59 AM EDT [facility] Plasma 10/27/2024 12:1 3 AM EDT 10/27/2024 12:31 AM EDT Kemar Sahni MD LAB BLOOD ORDERABLES Final Result Performing Organization Address City/[facility]/ZIP Co de Phone Number [facility] [address] * Magnesium (10/27/2024 12:13 AM EDT) Magnesium 1.8 1.5 - 2.5 mg/dL 10/27/2024 12:52 AM EDT [facility] Plasma 10/27/2024 12:1 3 AM EDT 10/27/2024 12:29 AM EDT Kemar Sahni MD LAB BLOOD ORDERABLES Final Result [facility] [address] * (ABNORMAL) Hepatic Function Panel (10/27/2024 12:13 AM EDT) Total Bilirubin 1.6(H) 0.0 - 1.5 mg/dL 10/27/2024 12:52 AM EDT [facility] Bilirubin, Direct 1.17(H) 0.00 - 0.40 mg/dL 10/27/2024 12:52 AM EDT [facility] AST 157(H) 13 - 39 U/L 10/27/2024 12:52 AM EDT [facility] ALT 261(H) 7 - 52 U/L 10/27/2024 12:52 AM EDT [facility] Alkaline Phosphatase 26(L) 36 - 125 U/L 10/27/2024 12:52 AM EDT [facility] Total Protein 3.8(L) 6.4 - 8.9 g/dL 10/27/2024 12:52 AM EDT [facility] Albumin 2.8(L) 3.5 - 5.7 g/dL 10/27/2024 12:52 AM EDT [facility] Bilirubin, Indirect 0.43 0.00 - 1.10 mg/dL 10/27/2024 12:52 AM EDT [facility] Plasma 10/27/2024 12:1 3 AM EDT 10/27/2024 12:29 AM EDT Kemar Sahni MD LAB BLOOD ORDERABLES Final Result [facility] [address] * (ABNORMAL) Protime-INR (10/27/2024 12:13 AM EDT) Protime 18.6(H) 12.1 - 15.1 seconds 10/27/2024 12:43 AM EDT [facility] INR 1.5(H) 0.9 - 1.1 10/27/2024 12:43 AM EDT [facility] Comment: RECOMMENDED THERAPEUTIC RANGES USING INR : Stable oral anticoagulant therapy: 2.0 - 3.0 Mechanical prosthetic heart valve: 2.5 - 3.5 Recurrent acute myocardial infarction: 2.5 - 3.5 Plasma 10/27/2024 12:1 3 AM EDT 10/27/2024 12:29 AM EDT us Kemar Sahni MD LAB BLOOD ORDERABLES Final Result [facility] [address] [place] [address], [facility] * (ABNORMAL) CBC (10/27/2024 12:13 AM EDT) WBC 5.0 3.8 - 10.8 10E3/uL 10/27/2024 12:59 AM EDT [facility] RBC 2.70(L) 4.20 - 5.80 10E6/uL 10/27/2024 12:59 AM EDT [facility] Hemoglobin 8.5(L) 13.2 - 17.1 g/dL 10/27/2024 12:59 AM EDT [facility] Hematocrit 23.9(L) 38.5 - 50.0 % 10/27/2024 12:59 AM EDT [facility] MCV 88.5 80.0 - 100.0 fL 10/27/2024 12:59 AM EDT [facility] MCH 31.5 27.0 - 33.0 pg 10/27/2024 12:59 AM EDT [facility] MCHC 35.6 32.0 - 36.0 g/dL 10/27/2024 12:59 AM EDT [facility] RDW 20.6(H) 11.0 - 15.0 % 10/27/2024 12:59 AM EDT [facility] Platelets 35(L) 140 - 400 10E3/uL 10/27/2024 12:59 AM EDT [facility] Comment: CNV Specimen checked for clots. None detected. MPV 7.6 7.5 - 11.5 fL 10/27/2024 12:59 AM EDT [facility] Whole Blood 10/27/2024 12:1 3 AM EDT 10/27/2024 12:29 AM EDT Kemar Sahni MD LAB BLOOD ORDERABLES Final Result [facility] [address] [place] [address], [facility] * (ABNORMAL) Renal Function Panel w/EGFR (10/27/2024 12:13 AM EDT) Sodium 141 133 - 146 mmol/L 10/27/2024 12:52 AM EDT [facility] Potassium 3.2(L) 3.5 - 5.3 mmol/L 10/27/2024 12:52 AM EDT [facility] Chloride 109 98 - 110 mmol/L 10/27/2024 12:52 AM EDT [facility] CO2 21 21 - 33 mmol/L 10/27/2024 12:52 AM EDT [facility] Anion Gap 11 3 - 16 mmol/L 10/27/2024 12:52 AM EDT [facility] BUN 64(H) 7 - 25 mg/dL 10/27/2024 12:52 AM EDT [facility] Creatinine 2.58(H) 0.60 - 1.30 mg/dL 10/27/2024 12:52 AM EDT [facility] Glucose 126(H) 70 - 100 mg/dL 10/27/2024 12:52 AM EDT [facility] Calcium 8.9 8.6 - 10.3 mg/dL 10/27/2024 12:52 AM EDT [facility] Phosphorus 5.3(H) 2.1 - 4.7 mg/dL 10/27/2024 12:52 AM EDT [facility] Albumin 2.8(L) 3.5 - 5.7 g/dL 10/27/2024 12:52 AM EDT [facility] Osmolality, Calculated 312(H) 278 - 305 mOsm/kg 10/27/2024 12:52 AM EDT [facility] EGFR 31 10/27/2024 12:52 AM EDT [facility] Comment:As of [...] BLOOD ORDERABLES Final Result Performing Organization Address City/[facility]/ZIP Co de Phone Number [facility] [address] [facility]. [address] * (ABNORMAL) POC Glucose Monitoring Device (10/27/2024 12:08 AM EDT) POC Glucose Monitoring Device 121(H) 70 - 100 mg/dL 10/27/2024 12:08 AM EDT [facility] Blood 10/27/2024 12:0 8 AM EDT 10/27/2024 12:08 AM EDT Harvey Domínguez III, MD POINT OF CARE TEST ORDERABLES Final Result Performing Organization Address City/[facility]/ZIP Co de Phone Number [facility] [address] [facility]. [address] * (ABNORMAL) POC Glucose Monitoring Device (10/26/2024 11:15 PM EDT) POC Glucose Monitoring Device 120(H) 70 - 100 mg/dL 10/26/2024 11:15 PM EDT [facility] Blood 10/26/2024 11:1 5 PM EDT 10/26/2024 11:15 PM EDT Harvey Domínguez III, MD POINT OF CARE TEST ORDERABLES Final Result [facility] [address] [place] [address], [facility] * (ABNORMAL) TEG-Bypass/ECMO/Liver HN (Factor function, Platelet/Fibrin Clot Strength w/Clot Breakdown, Heparinase In All Channels) (10/26/2024 10:36 PM EDT) [facility] Citrated Kaolin Reaction Time (TEGECMOLIVER) 10.0(H) 4.6 - 9.1 minutes 10/26/2024 11:53 PM EDT [facility] Citrated Kaolin W/Heparinase Reaction Time (TEGECMOLIVER) 10.2(H) 4.3 - 8.3 minutes 10/26/2024 11:53 PM EDT [facility] Citrated Kaolin Maximum Amplitude (TEGECMOLIVER) <40.0(L) 52.0 - 69.0 mm 10/26/2024 11:53 PM EDT [facility] Citrated Functional Fibrinogen W/Heparinase Maximum Amplitude(TEGEC MOLIVER) 11.3(L) 15.0 - 34.0 mm 10/26/2024 11:53 PM EDT [facility] Citrated Rapid Teg W/Heparinase Maximum Amplitude (TEGECMOLIVER) 41.8(L) 53.0 - 69.0 mm 10/26/2024 11:53 PM EDT [facility] Citrated Kaolin w/Heparinase Percent Lysis (TEGECMOLIVER) 0.0 0.0 - 3.2 % 10/26/2024 11:53 PM EDT [facility] Whole Blood (Citrate) 10/26/2024 10:36 PM EDT 10/26/2024 10:43 PM EDT Kemar Sahni MD LAB BLOOD ORDERABLES Final Result [facility] [address] * (ABNORMAL) POC Glucose Monitoring Device (10/26/2024 10:14 PM EDT) POC Glucose Monitoring Device 124(H) 70 - 100 mg/dL 10/26/2024 11:11 PM EDT [facility] Blood 10/26/2024 10:1 4 PM EDT 10/26/2024 11:11 PM EDT us Harvey Domínguez III, MD POINT OF CARE TEST ORDERABLES Final Result Performing Organization Address [facility]/ZIP Co de Phone Number [facility] [address] [facility]. [address] * (ABNORMAL) POC Glucose Monitoring Device (10/26/2024 9:16 PM EDT) POC Glucose Monitoring Device 119(H) 70 - 100 mg/dL 10/26/2024 9:18 PM EDT [facility] Blood 10/26/2024 9:16 PM EDT 10/26/2024 9:18 PM EDT us Harvey Domínguez III, MD POINT OF CARE TEST ORDERABLES Final Result Performing Organization Address City/[facility]/ZIP Co de Phone Number [facility] [address] [facility]. [address] * (ABNORMAL) POC Glucose Monitoring Device (10/26/2024 8:05 PM EDT) POC Glucose Monitoring Device 113(H) 70 - 100 mg/dL 10/26/2024 8:06 PM EDT [facility] Blood 10/26/2024 8:05 PM EDT 10/26/2024 8:06 PM EDT us Harvey Domínguez III, MD POINT OF CARE TEST ORDERABLES Final Result [facility] [address] * (ABNORMAL) POC Glucose Monitoring Device (10/26/2024 7:02 PM EDT) POC Glucose Monitoring Device 111(H) 70 - 100 mg/dL 10/26/2024 7:03 PM EDT [facility] Blood 10/26/2024 7:02 PM EDT 10/26/2024 7:03 PM EDT us Harvey Domínguez III, MD POINT OF CARE TEST ORDERABLES Final Result Performing Organization Address [facility] Co de Phone Number [facility] [address] * Transfuse Cryoprecipitate Transfusion Rate: Per dept routine (10/26/2024 6:39 PM EDT) us John Pina MD NURSING TREATMENT ORDERABLES - BLOOD ADMIN Final Result Performing Organization Address [facility] Co de Phone Number EXTERNAL * Transfuse Cryoprecipitate Transfusion Rate: Per dept routine, 1 Units (10/26/2024 6:39 PM EDT) us John Pina MD NURSING TREATMENT ORDERABLES - BLOOD ADMIN Final Result Performing Organization Address [facility] de Phone Number EXTERNAL * (ABNORMAL) POC Glucose Monitoring Device (10/26/2024 6:33 PM EDT) POC Glucose Monitoring Device 110(H) 70 - 100 mg/dL 10/26/2024 6:34 PM EDT [facility] Blood 10/26/2024 6:33 PM EDT 10/26/2024 6:34 PM EDT us Harvey Domínguez III, MD POINT OF CARE TEST ORDERABLES Final Result Performing Organization Address [facility] Co de Phone Number [facility] [address] * Transfuse Cryoprecipitate Transfusion Rate: Per dept routine (10/26/2024 6:22 PM EDT) us John Pina MD NURSING TREATMENT ORDERABLES - BLOOD ADMIN Final Result Performing Organization Address [facility] de Phone Number EXTERNAL * Transfuse Cryoprecipitate Transfusion Rate: Per dept routine, 1 Units (10/26/2024 6:22 PM EDT) John Pina MD NURSING TREATMENT ORDERABLES - BLOOD ADMIN Final Result Performing Organization Address City/[facility] Co de Phone Number EXTERNAL * (ABNORMAL) POC Glucose Monitoring Device (10/26/2024 6:17 PM EDT) POC Glucose Monitoring Device 104(H) 70 - 100 mg/dL 10/26/2024 6:18 PM EDT [facility] Blood 10/26/2024 6:17 PM EDT 10/26/2024 6:18 PM EDT Harvey Domínguez III, MD POINT OF CARE TEST ORDERABLES Final Result Performing Organization Address [facility] de Phone Number [facility] [address] * (ABNORMAL) POC Glucose Monitoring Device (10/26/2024 4:58 PM EDT) POC Glucose Monitoring Device 115(H) 70 - 100 mg/dL 10/26/2024 4:59 PM EDT [facility] Blood 10/26/2024 4:58 PM EDT 10/26/2024 4:58 PM EDT us Harvey Domínguez III, MD POINT OF CARE TEST ORDERABLES Final Result Performing Organization Address [facility] Co de Phone Number [facility] [address] * (ABNORMAL) Calcium Free, Serum (10/26/2024 4:42 PM EDT) Free Calcium, Ser 5.67(H) 4.40 - 5.40 mg/dL 10/26/2024 4:55 PM EDT [facility] Comment:Free calcium levels vary inversely with pH by approximately 5% for each 0.1 unit of pH change. Assay results have been normalized to pH = 7.40. Serum 10/26/2024 4:42 PM EDT 10/26/2024 4:47 PM EDT Narrative [facility] - 10/26/2024 4:55 PM EDT This test has been developed and its performance characteristics determined by [facility] which is certified under the [...] Resu lt Performing Organization Address [facility] Co de Phone Number [facility] [address] * Repeat Crossmatch (Recipient Sample) (10/26/2024 4:42 PM EDT) Repeat Cx - Recipient The request and specimen(s) for this test have been received and transported to the [facility] at [address] [place] [address]. The [facility] will report results directly to the client. 10/26/2024 4:49 PM EDT [facility] Whole Blood 10/26/2024 4:42 PM EDT 10/26/2024 4:49 PM EDT Narrative [facility] - 10/26/2024 4:49 PM EDT To be sent to [facility] for Donor UNOS#[id number] cross match with Blair Gilbert Sveta Judge MD LAB BLOOD ORDERABLES Final Resu lt Performing Organization Address [facility]/ZIP Co de Phone Number [facility] [address] [place], [place] [address] * (ABNORMAL) Lactic Acid (10/26/2024 4:42 PM EDT) Lactate 0.3(L) 0.5 - 2.2 mmol/L 10/26/2024 5:19 PM EDT [facility] Plasma 10/26/2024 4:42 PM EDT 10/26/2024 4:47 PM EDT Kemar Sahni MD LAB BLOOD ORDERABLES Final Result Performing Organization Address [facility]/ZIP Co de Phone Number [facility] [address] [facility]. [address] * Magnesium (10/26/2024 4:42 PM EDT) Magnesium 2.0 1.5 - 2.5 mg/dL 10/26/2024 5:24 PM EDT [facility] Plasma 10/26/2024 4:42 PM EDT 10/26/2024 4:47 PM EDT Kemar Sahni MD LAB BLOOD ORDERABLES Final Result Performing Organization Address [facility] de Phone Number [facility] [address] [facility]. [address] * (ABNORMAL) Hepatic Function Panel (10/26/2024 4:42 PM EDT) Total Bilirubin 2.3(H) 0.0 - 1.5 mg/dL 10/26/2024 5:24 PM EDT [facility] Bilirubin, Direct 1.85(H) 0.00 - 0.40 mg/dL 10/26/2024 5:24 PM EDT [facility] AST 374(H) 13 - 39 U/L 10/26/2024 5:24 PM EDT [facility] ALT 458(H) 7 - 52 U/L 10/26/2024 5:24 PM EDT [facility] Alkaline Phosphatase 39 36 - 125 U/L 10/26/2024 5:24 PM EDT [facility] Total Protein 3.8(L) 6.4 - 8.9 g/dL 10/26/2024 5:24 PM EDT [facility] Albumin 3.0(L) 3.5 - 5.7 g/dL 10/26/2024 5:24 PM EDT [facility] Bilirubin, Indirect 0.45 0.00 - 1.10 mg/dL 10/26/2024 5:24 PM EDT [facility] Plasma 10/26/2024 4:42 PM EDT 10/26/2024 4:47 PM EDT Kemar Sahni MD LAB BLOOD ORDERABLES Final Result Performing Organization Address City/[facility] Co de Phone Number [facility] [address] * (ABNORMAL) Protime-INR (10/26/2024 4:42 PM EDT) Protime 20.3(H) 12.1 - 15.1 seconds 10/26/2024 5:12 PM EDT [facility] INR 1.7(H) 0.9 - 1.1 10/26/2024 5:12 PM EDT [facility] Comment: RECOMMENDED THERAPEUTIC RANGES USING INR : Stable oral anticoagulant therapy: 2.0 - 3.0 Mechanical prosthetic heart valve: 2.5 - 3.5 Recurrent acute myocardial infarction: 2.5 - 3.5 Plasma 10/26/2024 4:42 PM EDT 10/26/2024 4:47 PM EDT Kemar Sahni MD LAB BLOOD ORDERABLES Final Result [facility] [address] * (ABNORMAL) CBC (10/26/2024 4:42 PM EDT) WBC 10.0 3.8 - 10.8 10E3/uL 10/26/2024 5:00 PM EDT [facility] RBC 3.44(L) 4.20 - 5.80 10E6/uL 10/26/2024 5:00 PM EDT [facility] Hemoglobin 10.5(L) 13.2 - 17.1 g/dL 10/26/2024 5:00 PM EDT [facility] Hematocrit 30.2(L) 38.5 - 50.0 % 10/26/2024 5:00 PM EDT [facility] MCV 87.7 80.0 - 100.0 fL 10/26/2024 5:00 PM EDT [facility] MCH 30.6 27.0 - 33.0 pg 10/26/2024 5:00 PM EDT [facility] MCHC 34.8 32.0 - 36.0 g/dL 10/26/2024 5:00 PM EDT [facility] RDW 20.1(H) 11.0 - 15.0 % 10/26/2024 5:00 PM EDT [facility] Platelets 48(L) 140 - 400 10E3/uL 10/26/2024 5:00 PM EDT [facility] Comment:Specimen checked for clots. None detected. MPV 7.9 7.5 - 11.5 fL 10/26/2024 5:00 PM EDT [facility] Whole Blood 10/26/2024 4:42 PM EDT 10/26/2024 4:47 PM EDT Kemar Sahni MD LAB BLOOD ORDERABLES Final Result [facility] [address] * (ABNORMAL) Renal Function Panel w/EGFR (10/26/2024 4:42 PM EDT) Sodium 142 133 - 146 mmol/L 10/26/2024 5:24 PM EDT [facility] Potassium 3.3(L) 3.5 - 5.3 mmol/L 10/26/2024 5:24 PM EDT [facility] Chloride 109 98 - 110 mmol/L 10/26/2024 5:24 PM EDT [facility] CO2 23 21 - 33 mmol/L 10/26/2024 5:24 PM EDT [facility] Anion Gap 10 3 - 16 mmol/L 10/26/2024 5:24 PM EDT [facility] BUN 63(H) 7 - 25 mg/dL 10/26/2024 5:24 PM EDT [facility] Creatinine 2.85(H) 0.60 - 1.30 mg/dL 10/26/2024 5:24 PM EDT [facility] Glucose 127(H) 70 - 100 mg/dL 10/26/2024 5:24 PM EDT [facility] Calcium 8.9 8.6 - 10.3 mg/dL 10/26/2024 5:24 PM EDT [facility] Phosphorus 4.4 2.1 - 4.7 mg/dL 10/26/2024 5:24 PM EDT [facility] Albumin 3.0(L) 3.5 - 5.7 g/dL 10/26/2024 5:24 PM EDT [facility] Osmolality, Calculated 314(H) 278 - 305 mOsm/kg 10/26/2024 5:24 PM EDT [facility] EGFR 28 10/26/2024 5:24 PM EDT [facility] Comment:As of [...] Sahni MD LAB BLOOD ORDERABLES Final Result [facility] [address] * (ABNORMAL) POC Glucose Monitoring Device (10/26/2024 3:54 PM EDT) POC Glucose Monitoring Device 126(H) 70 - 100 mg/dL 10/26/2024 3:55 PM EDT [facility] Blood 10/26/2024 3:54 PM EDT 10/26/2024 3:55 PM EDT Harvey Domínguez III, MD POINT OF CARE TEST ORDERABLES Final Result [facility] [address] [place] [address]. [address] * (ABNORMAL) POC Glucose Monitoring Device (10/26/2024 3:06 PM EDT) POC Glucose Monitoring Device 144(H) 70 - 100 mg/dL 10/26/2024 3:14 PM EDT [facility] Blood 10/26/2024 3:06 PM EDT 10/26/2024 3:13 PM EDT Harvey Domínguez III, MD POINT OF CARE TEST ORDERABLES Final Result [facility] [address] [place] [address]. [address] * (ABNORMAL) TEG-Bypass/ECMO/Liver HN (Factor function, Platelet/Fibrin Clot Strength w/Clot Breakdown, Heparinase In All Channels) (10/26/2024 3:03 PM EDT) Citrated Kaolin Reaction Time (TEGECMOLIVER) 8.2 4.6 - 9.1 minutes 10/26/2024 4:43 PM EDT [facility] Citrated Kaolin W/Heparinase Reaction Time (TEGECMOLIVER) 8.2 4.3 - 8.3 minutes 10/26/2024 4:43 PM EDT [facility] Citrated Kaolin Maximum Amplitude (TEGECMOLIVER) 41.7(L) 52.0 - 69.0 mm 10/26/2024 4:43 PM EDT [facility] Citrated Functional Fibrinogen W/Heparinase Maximum Amplitude(TEGEC MOLIVER) 11.4(L) 15.0 - 34.0 mm 10/26/2024 4:43 PM EDT [facility] Citrated Rapid Teg W/Heparinase Maximum Amplitude (TEGECMOLIVER) 38.6(L) 53.0 - 69.0 mm 10/26/2024 4:43 PM EDT [facility] Citrated Kaolin w/Heparinase Percent Lysis (TEGECMOLIVER) 0.0 0.0 - 3.2 % 10/26/2024 4:43 PM EDT [facility] Whole Blood (Citrate) 10/26/2024 3:03 PM EDT 10/26/2024 3:10 PM EDT Jani Mooney MD LAB BLOOD ORDERABLES Final Resul t Performing Organization Address City/[facility] Co de Phone Number [facility] [address] * ECG 12 lead (MUSE) (10/26/2024 2:19 PM EDT) 10/26/2024 2:19 PM EDT Narrative MUSE - 10/27/2024 10:09 AM EDT Ventricular Rate: 105 BPM Atrial Rate: 105 BPM P-R Interval: 128 ms QRS Duration: 94 ms QT: 474 ms QTc: 626 ms R Martin: -37 degrees T Martin: 35 degrees Diagnosis Line: Critical Test Result: Long QTc ^ SINUS TACHYCARDIA ^ LEFT AXIS DEVIATION, LEFT ANTERIOR HEMIBLOCK ^ PROLONGED QT ^ ABNORMAL ECG ^ ^ Confirmed by MD HA, [facility]ALK[facility] ([id number]) on 10/27/2024 10:09:25 AM Quinten Best MD ECG ORDERABLES Final Result MUSE * (ABNORMAL) POC Glucose Monitoring Device (10/26/2024 2:00 PM EDT) POC Glucose Monitoring Device 183(H) 70 - 100 mg/dL 10/26/2024 2:01 PM EDT [facility] Blood 10/26/2024 2:00 PM EDT 10/26/2024 2:01 PM EDT us Harvey Domínguez III, MD POINT OF CARE TEST ORDERABLES Final Result Performing Organization Address [facility] Co de Phone Number [facility] [address] * (ABNORMAL) POC Glucose Monitoring Device (10/26/2024 1:05 PM EDT) POC Glucose Monitoring Device 212(H) 70 - 100 mg/dL 10/26/2024 1:06 PM EDT [facility] Blood 10/26/2024 1:05 PM EDT 10/26/2024 1:06 PM EDT us Harvey Domínguez III, MD POINT OF CARE TEST ORDERABLES Final Result Performing Organization Address [facility] Co de Phone Number [facility] [address] * Transfuse Cryoprecipitate Has consent been obtained? Yes; Transfusion Rate: Per dept routine (10/26/2024 12:25 PM EDT) us Shay Sifuentes MD NURSING TREATMENT ORDERABLES - BLOOD ADMIN Final Result Performing Organization Address City/[facility]/ZIP Co de Phone Number EXTERNAL * Transfuse Cryoprecipitate Has consent been obtained? Yes; Transfusion Rate: Per dept routine, 1 Units (10/26/2024 12:25 PM EDT) us Shay Sifuentes MD NURSING TREATMENT ORDERABLES - BLOOD ADMIN Final Result Performing Organization Address City/[facility]/ZIP Co de Phone Number EXTERNAL * (ABNORMAL) POC Glucose Monitoring Device (10/26/2024 12:06 PM EDT) POC Glucose Monitoring Device 226(H) 70 - 100 mg/dL 10/26/2024 12:07 PM EDT [facility] Blood 10/26/2024 12:0 6 PM EDT 10/26/2024 12:07 PM EDT Harvey Domínguez III, MD POINT OF CARE TEST ORDERABLES Final Result Performing Organization Address [facility] Co de Phone Number [facility] [address] [facility]. [address] * Transfuse Cryoprecipitate Transfusion Rate: Per dept routine (10/26/2024 12:01 PM EDT) John Pina MD NURSING TREATMENT ORDERABLES - BLOOD ADMIN Final Result Performing Organization Address City/[facility] Co de Phone Number EXTERNAL * Transfuse Cryoprecipitate Transfusion Rate: Per dept routine, 1 Units (10/26/2024 12:01 PM EDT) John Pina MD NURSING TREATMENT ORDERABLES - BLOOD ADMIN Final Result Performing Organization Address [facility] Co de Phone Number EXTERNAL * Lactic Acid (10/26/2024 10:48 AM EDT) Lactate 1.2 0.5 - 2.2 mmol/L 10/26/2024 11:27 AM EDT [facility] Plasma 10/26/2024 10:4 8 AM EDT 10/26/2024 10:53 AM EDT Kemar Sahni MD LAB BLOOD ORDERABLES Final Result Performing Organization Address [facility] Co de Phone Number [facility] [address] [facility]. [address] * Magnesium (10/26/2024 10:48 AM EDT) Magnesium 2.0 1.5 - 2.5 mg/dL 10/26/2024 11:26 AM EDT [facility] Plasma 10/26/2024 10:4 8 AM EDT 10/26/2024 10:53 AM EDT Kemar Sahni MD LAB BLOOD ORDERABLES Final Result [facility] [address] * (ABNORMAL) Hepatic Function Panel (10/26/2024 10:48 AM EDT) Total Bilirubin 5.9(H) 0.0 - 1.5 mg/dL 10/26/2024 11:26 AM EDT [facility] Bilirubin, Direct 4.74(H) 0.00 - 0.40 mg/dL 10/26/2024 11:26 AM EDT [facility] AST 872(H) 13 - 39 U/L 10/26/2024 11:26 AM EDT [facility] ALT 736(H) 7 - 52 U/L 10/26/2024 11:26 AM EDT [facility] Alkaline Phosphatase 56 36 - 125 U/L 10/26/2024 11:26 AM EDT [facility] Total Protein 3.5(L) 6.4 - 8.9 g/dL 10/26/2024 11:26 AM EDT [facility] Albumin 2.5(L) 3.5 - 5.7 g/dL 10/26/2024 11:26 AM EDT [facility] Bilirubin, Indirect 1.16(H) 0.00 - 1.10 mg/dL 10/26/2024 11:26 AM EDT [facility] Plasma 10/26/2024 10:4 8 AM EDT 10/26/2024 10:53 AM EDT Kemar Sahni MD LAB BLOOD ORDERABLES Final Result [facility] [address] [facility]. [address] * (ABNORMAL) Protime-INR (10/26/2024 10:48 AM EDT) Protime 23.0(H) 12.1 - 15.1 seconds 10/26/2024 11:26 AM EDT [facility] INR 2.0(H) 0.9 - 1.1 10/26/2024 11:26 AM EDT [facility] Comment: RECOMMENDED THERAPEUTIC RANGES USING INR : Stable oral anticoagulant therapy: 2.0 - 3.0 Mechanical prosthetic heart valve: 2.5 - 3.5 Recurrent acute myocardial infarction: 2.5 - 3.5 Plasma 10/26/2024 10:4 8 AM EDT 10/26/2024 10:53 AM EDT Kemar Sahni MD LAB BLOOD ORDERABLES Final Result [facility] [address] [place] [address], [facility] * (ABNORMAL) CBC (10/26/2024 10:48 AM EDT) WBC 17.3(H) 3.8 - 10.8 10E3/uL 10/26/2024 11:14 AM EDT [facility] RBC 4.22 4.20 - 5.80 10E6/uL 10/26/2024 11:14 AM EDT [facility] Hemoglobin 12.8(L) 13.2 - 17.1 g/dL 10/26/2024 11:14 AM EDT [facility] Hematocrit 37.2(L) 38.5 - 50.0 % 10/26/2024 11:14 AM EDT [facility] MCV 88.3 80.0 - 100.0 fL 10/26/2024 11:14 AM EDT [facility] MCH 30.4 27.0 - 33.0 pg 10/26/2024 11:14 AM EDT [facility] MCHC 34.4 32.0 - 36.0 g/dL 10/26/2024 11:14 AM EDT [facility] RDW 20.8(H) 11.0 - 15.0 % 10/26/2024 11:14 AM EDT [facility] Platelets 109(L) 140 - 400 10E3/uL 10/26/2024 11:14 AM EDT [facility] MPV 7.5 7.5 - 11.5 fL 10/26/2024 11:14 AM EDT [facility] Whole Blood 10/26/2024 10:4 8 AM EDT 10/26/2024 10:53 AM EDT Kemar Sahni MD LAB BLOOD ORDERABLES Final Result [facility] [address] [place] [address], [facility] * (ABNORMAL) Blood gas, arterial (10/26/2024 10:48 AM EDT) O2 Sat, Arterial 97 10/26/2024 10:54 AM EDT [facility] FIO2 35% 10/26/2024 10:54 AM EDT [facility] pH, Arterial 7.37 7.35 - 7.45 10/26/2024 10:54 AM EDT [facility] pCO2, Arterial 36 35 - 45 mm Hg 10/26/2024 10:54 AM EDT [facility] pO2, Arterial 91 80 - 100 mm Hg 10/26/2024 10:54 AM EDT [facility] HCO3, Arterial 22 22 - 26 mmol/L 10/26/2024 10:54 AM EDT [facility] CO2 Content,Arteri al 22(L) 23 - 27 mmol/L 10/26/2024 10:54 AM EDT [facility] Base Excess, Arterial -3.9(L) -2.0 - 3.0 mmol/L 10/26/2024 10:54 AM EDT [facility] %HBO2, Arterial 94.8(L) 95.0 - 98.0 % 10/26/2024 10:54 AM EDT [facility] Carboxyhemoglo bin, Arterial 1.9 % 10/26/2024 10:54 AM EDT [facility] Comment: CARBOXYHEMOGLOBIN (CO) REFERENCE RANGES: Non-Smokers: <2 % Smokers: <8 % TOXIC: >20 % Methemoglobin, Arterial 0.7 0.0 - 1.5 % 10/26/2024 10:54 AM EDT [facility] Reduced hemoglobin, Arterial 2.5 0.0 - 5.0 % 10/26/2024 10:54 AM EDT [facility] Blood, Arterial 10/26/2024 1 0:48 AM EDT 10/26/2024 10:52 AM EDT us Shay Sifuentes MD LAB BLOOD ORDERABLES Final Resu lt [facility] [address] [place] [address], [facility] * (ABNORMAL) Renal Function Panel w/EGFR (10/26/2024 10:48 AM EDT) Sodium 139 133 - 146 mmol/L 10/26/2024 11:26 AM EDT [facility] Potassium 2.9(LL) 3.5 - 5.3 mmol/L 10/26/2024 11:26 AM EDT [facility] Comment:K CRITICAL VALUE WAS PREVIOUSLY CALLED Chloride 107 98 - 110 mmol/L 10/26/2024 11:26 AM EDT [facility] CO2 22 21 - 33 mmol/L 10/26/2024 11:26 AM EDT [facility] Anion Gap 10 3 - 16 mmol/L 10/26/2024 11:26 AM EDT [facility] BUN 61(H) 7 - 25 mg/dL 10/26/2024 11:26 AM EDT [facility] Creatinine 2.78(H) 0.60 - 1.30 mg/dL 10/26/2024 11:26 AM EDT [facility] Glucose 253(H) 70 - 100 mg/dL 10/26/2024 11:26 AM EDT [facility] Calcium 8.8 8.6 - 10.3 mg/dL 10/26/2024 11:26 AM EDT [facility] Phosphorus 4.1 2.1 - 4.7 mg/dL 10/26/2024 11:26 AM EDT [facility] Albumin 2.5(L) 3.5 - 5.7 g/dL 10/26/2024 11:26 AM EDT [facility] Osmolality, Calculated 314(H) 278 - 305 mOsm/kg 10/26/2024 11:26 AM EDT [facility] EGFR 28 10/26/2024 11:26 AM EDT [facility] Comment:As of [...] Final Result Performing Organization Address [facility]/ZIP Co de Phone Number [facility] [address] [place] [address]. [address] * (ABNORMAL) POC Glucose Monitoring Device (10/26/2024 10:47 AM EDT) POC Glucose Monitoring Device 234(H) 70 - 100 mg/dL 10/26/2024 10:48 AM EDT [facility] Blood 10/26/2024 10:4 7 AM EDT 10/26/2024 10:48 AM EDT Harvey Domínguez III, MD POINT OF CARE TEST ORDERABLES Final Result Performing Organization Address [facility]/ZIP Co de Phone Number [facility] [address] [facility]. [address] * CARISA Rhythm Strip - Scan (10/26/2024 10:45 AM EDT) Scanning Uchhim SCAN DOCS - NO RESULTS Final Res ult * (ABNORMAL) POC Glucose Monitoring Device (10/26/2024 10:08 AM EDT) POC Glucose Monitoring Device 235(H) 70 - 100 mg/dL 10/26/2024 10:09 AM EDT [facility] Blood 10/26/2024 10:0 8 AM EDT 10/26/2024 10:09 AM EDT Harvey Domínguez III, MD POINT OF CARE TEST ORDERABLES Final Result Performing Organization Address [facility]/ZIP Co de Phone Number [facility] [address] * (ABNORMAL) POC Glucose Monitoring Device (10/26/2024 8:57 AM EDT) [facility] Signature POC Glucose Monitoring Device 232(H) 70 - 100 mg/dL 10/26/2024 8:59 AM EDT [facility] Blood 10/26/2024 8:57 AM EDT 10/26/2024 8:58 AM EDT us Harvey Domínguez III, MD POINT OF CARE TEST ORDERABLES Final Result Performing Organization Address [facility] de Phone Number [facility] [address] * ECG 12 lead (MUSE) (10/26/2024 8:16 AM EDT) 10/26/2024 8:16 AM EDT Narrative MUSE - 10/27/2024 10:09 AM EDT Ventricular Rate: 112 BPM QRS Duration: 96 ms QT: 452 ms QTc: 616 ms R Martin: -41 degrees T Martin: 40 degrees Diagnosis Line: Critical Test Result: Long QTc ^ SINUS TACHYCARDIA OCCASIONAL PREMATURE VENTRICULAR COMPLEXES ^ LEFT AXIS DEVIATION, LEFT ANTERIOR HEMIBLOCK ^ PROLONGED QT ^ ABNORMAL ECG ^ ^ Confirmed by MD HA, ERICK ([id number]) on 10/27/2024 10:09:18 AM us Shay Sifuentes MD ECG ORDERABLES Final Result Performing Organization Address City/[facility] Co de Phone Number MUSE [...] - 100 mg/dL 10/26/2024 8:01 AM EDT [facility] Blood 10/26/2024 7:59 AM EDT 10/26/2024 8:00 AM EDT us Harvey Domínguez III, MD POINT OF CARE TEST ORDERABLES Final Result Performing Organization Address [facility]/ZIP Co de Phone Number [facility] [address] * (ABNORMAL) TEG-Bypass/ECMO/Liver HN (Factor function, Platelet/Fibrin Clot Strength w/Clot Breakdown, Heparinase In All Channels) (10/26/2024 7:59 AM EDT) [facility] Signature Citrated Kaolin Reaction Time (TEGECMOLIVER) 8.2 4.6 - 9.1 minutes 10/26/2024 10:36 AM EDT [facility] Citrated Kaolin W/Heparinase Reaction Time (TEGECMOLIVER) 8.1 4.3 - 8.3 minutes 10/26/2024 10:36 AM EDT [facility] Citrated Kaolin Maximum Amplitude (TEGECMOLIVER) 46.8(L) 52.0 - 69.0 mm 10/26/2024 10:36 AM EDT [facility] Citrated Functional Fibrinogen W/Heparinase Maximum Amplitude(TEGEC MOLIVER) 10.5(L) 15.0 - 34.0 mm 10/26/2024 10:36 AM EDT [facility] Citrated Rapid Teg W/Heparinase Maximum Amplitude (TEGECMOLIVER) 45.5(L) 53.0 - 69.0 mm 10/26/2024 10:36 AM EDT [facility] Citrated Kaolin w/Heparinase Percent Lysis (TEGECMOLIVER) 0.0 0.0 - 3.2 % 10/26/2024 10:36 AM EDT [facility] Whole Blood (Citrate) 10/26/2024 7:59 AM EDT 10/26/2024 8:05 AM EDT us Shay Sifuentes MD LAB BLOOD ORDERABLES Final Resu lt [facility] [address] * (ABNORMAL) POC Glucose Monitoring Device (10/26/2024 6:12 AM EDT) POC Glucose Monitoring Device 196(H) 70 - 100 mg/dL 10/26/2024 6:13 AM EDT [facility] Blood 10/26/2024 6:12 AM EDT 10/26/2024 6:13 AM EDT Harvey Domínguez III, MD POINT OF CARE TEST ORDERABLES Final Result Performing Organization Address [facility]/ZIP Co de Phone Number [facility] [address] [facility]. [address] * Lactic Acid (10/26/2024 6:10 AM EDT) Lactate 1.2 0.5 - 2.2 mmol/L 10/26/2024 6:39 AM EDT [facility] Plasma 10/26/2024 6:10 AM EDT 10/26/2024 6:19 AM EDT Sveta Judge MD LAB BLOOD ORDERABLES Final Resu lt Performing Organization Address [facility]/ZIP Co de Phone Number [facility] [address] [facility]. [address] * (ABNORMAL) Fibrinogen (10/26/2024 6:10 AM EDT) Fibrinogen 160(L) 218 - 406 mg/dL 10/26/2024 6:41 AM EDT [facility] Plasma 10/26/2024 6:10 AM EDT 10/26/2024 6:26 AM EDT Sveta Judge MD LAB BLOOD ORDERABLES Final Resu lt Performing Organization Address City/[facility]/ZIP Co de Phone Number [facility] [address] [facility]. [address] * (ABNORMAL) Protime-INR (10/26/2024 6:10 AM EDT) Protime 25.0(H) 12.1 - 15.1 seconds 10/26/2024 6:41 AM EDT [facility] INR 2.2(H) 0.9 - 1.1 10/26/2024 6:41 AM EDT [facility] Comment: RECOMMENDED THERAPEUTIC RANGES USING INR : Stable oral anticoagulant therapy: 2.0 - 3.0 Mechanical prosthetic heart valve: 2.5 - 3.5 Recurrent acute myocardial infarction: 2.5 - 3.5 Plasma 10/26/2024 6:10 AM EDT 10/26/2024 6:26 AM EDT us Sveta Judge MD LAB BLOOD ORDERABLES Final Resu lt [facility] [address] * (ABNORMAL) Blood gas, arterial (10/26/2024 6:10 AM EDT) O2 Sat, Arterial 98 10/26/2024 6:23 AM EDT [facility] FIO2 60 10/26/2024 6:23 AM EDT [facility] pH, Arterial 7.27(L) 7.35 - 7.45 10/26/2024 6:23 AM EDT [facility] pCO2, Arterial 47(H) 35 - 45 mm Hg 10/26/2024 6:23 AM EDT [facility] pO2, Arterial 127(H) 80 - 100 mm Hg 10/26/2024 6:23 AM EDT [facility] HCO3, Arterial 21(L) 22 - 26 mmol/L 10/26/2024 6:23 AM EDT [facility] CO2 Content,Arteri al 23 23 - 27 mmol/L 10/26/2024 6:23 AM EDT [facility] Base Excess, Arterial -5.4(L) -2.0 - 3.0 mmol/L 10/26/2024 6:23 AM EDT [facility] %HBO2, Arterial 94.6(L) 95.0 - 98.0 % 10/26/2024 6:23 AM EDT [facility] Carboxyhemoglo bin, Arterial 2.0 % 10/26/2024 6:23 AM EDT [facility] Comment: CARBOXYHEMOGLOBIN (CO) REFERENCE RANGES: Non-Smokers: <2 % Smokers: <8 % TOXIC: >20 % Methemoglobin, Arterial 1.6(H) 0.0 - 1.5 % 10/26/2024 6:23 AM EDT [facility] Reduced hemoglobin, Arterial 1.8 0.0 - 5.0 % 10/26/2024 6:23 AM EDT [facility] Blood, Arterial 10/26/2024 6 :10 AM EDT 10/26/2024 6:20 AM EDT Sveta Judge MD LAB BLOOD ORDERABLES Final Resu lt Performing Organization Address [facility] Co de Phone Number [facility] [address] [facility]. [address] * Magnesium (10/26/2024 6:10 AM EDT) Magnesium 1.5 1.5 - 2.5 mg/dL 10/26/2024 7:09 AM EDT [facility] Plasma 10/26/2024 6:10 AM EDT 10/26/2024 6:23 AM EDT Sveta Judge MD LAB BLOOD ORDERABLES Final Resu lt Performing Organization Address City/[facility] Co de Phone Number [facility] [address] [facility]. [address] * (ABNORMAL) Hepatic Function Panel (10/26/2024 6:10 AM EDT) Total Bilirubin 6.2(H) 0.0 - 1.5 mg/dL 10/26/2024 7:11 AM EDT [facility] Bilirubin, Direct 5.26(H) 0.00 - 0.40 mg/dL 10/26/2024 7:11 AM EDT [facility] AST 1,071(H) 13 - 39 U/L 10/26/2024 7:11 AM EDT [facility] ALT 805(H) 7 - 52 U/L 10/26/2024 7:11 AM EDT [facility] Alkaline Phosphatase 55 36 - 125 U/L 10/26/2024 7:11 AM EDT [facility] Total Protein <3.0(L) 6.4 - 8.9 g/dL 10/26/2024 7:11 AM EDT [facility] Albumin 1.9(L) 3.5 - 5.7 g/dL 10/26/2024 7:11 AM EDT [facility] Bilirubin, Indirect 0.94 0.00 - 1.10 mg/dL 10/26/2024 7:11 AM EDT [facility] Plasma 10/26/2024 6:10 AM EDT 10/26/2024 6:23 AM EDT us Sveta Judge MD LAB BLOOD ORDERABLES Final Resu lt [facility] [address] * (ABNORMAL) Renal Function Panel w/EGFR (10/26/2024 6:10 AM EDT) Sodium 141 133 - 146 mmol/L 10/26/2024 7:09 AM EDT [facility] Potassium 2.8(LL) 3.5 - 5.3 mmol/L 10/26/2024 7:09 AM EDT [facility] Comment:Critical value previ ously called. Chloride 106 98 - 110 mmol/L 10/26/2024 7:09 AM EDT [facility] CO2 25 21 - 33 mmol/L 10/26/2024 7:09 AM EDT [facility] Anion Gap 10 3 - 16 mmol/L 10/26/2024 7:09 AM EDT [facility] BUN 57(H) 7 - 25 mg/dL 10/26/2024 7:09 AM EDT [facility] Creatinine 2.70(H) 0.60 - 1.30 mg/dL 10/26/2024 7:09 AM EDT [facility] Glucose 210(H) 70 - 100 mg/dL 10/26/2024 7:09 AM EDT [facility] Calcium 8.7 8.6 - 10.3 mg/dL 10/26/2024 7:09 AM EDT [facility] Phosphorus 5.4(H) 2.1 - 4.7 mg/dL 10/26/2024 7:09 AM EDT [facility] Albumin 1.9(L) 3.5 - 5.7 g/dL 10/26/2024 7:11 AM EDT [facility] Osmolality, Calculated 314(H) 278 - 305 mOsm/kg 10/26/2024 7:09 AM EDT [facility] EGFR 29 10/26/2024 7:09 AM EDT [facility] Comment:As of [...] MD LAB BLOOD ORDERABLES Final Resu lt [facility] [address] [place] [address], [facility] * (ABNORMAL) CBC (10/26/2024 6:10 AM EDT) WBC 14.8(H) 3.8 - 10.8 10E3/uL 10/26/2024 6:46 AM EDT [facility] RBC 4.04(L) 4.20 - 5.80 10E6/uL 10/26/2024 6:46 AM EDT [facility] Hemoglobin 12.7(L) 13.2 - 17.1 g/dL 10/26/2024 6:46 AM EDT [facility] Hematocrit 35.9(L) 38.5 - 50.0 % 10/26/2024 6:46 AM EDT [facility] MCV 89.0 80.0 - 100.0 fL 10/26/2024 6:46 AM EDT [facility] MCH 31.3 27.0 - 33.0 pg 10/26/2024 6:46 AM EDT [facility] MCHC 35.2 32.0 - 36.0 g/dL 10/26/2024 6:46 AM EDT [facility] RDW 19.7(H) 11.0 - 15.0 % 10/26/2024 6:46 AM EDT [facility] Platelets 107(L) 140 - 400 10E3/uL 10/26/2024 6:46 AM EDT [facility] MPV 7.4(L) 7.5 - 11.5 fL 10/26/2024 6:46 AM EDT [facility] Whole Blood 10/26/2024 6:10 AM EDT 10/26/2024 6:26 AM EDT Sveta Judge MD LAB BLOOD ORDERABLES Final Resu lt [facility] [address] * (ABNORMAL) POC INR (10/26/2024 5:16 AM EDT) Pathologist [facility] Prothrombin Time INR, POC 2.4(H) 0.8 - 1.4 10/27/2024 6:51 AM EDT [facility] Comment: Test results may vary [...] POINT OF CARE TEST ORDERABLES Final Result [facility] [address] * POC Sample Type (10/26/2024 5:14 AM EDT) POC Sample Type Arterial 10/26/2024 5:31 AM EDT [facility] Blood, Arterial 10/26/2024 5 :14 AM EDT 10/26/2024 5:31 AM EDT Harvey Domínguez III, MD POINT OF CARE TEST ORDERABLES Final Result Performing Organization Address [facility] Co de Phone Number [facility] [address] [facility]. [address] * POC Anion Gap (10/26/2024 5:14 AM EDT) POC Anion Gap, Arterial 12 3 - 16 mmol/L 10/26/2024 5:31 AM EDT [facility] Blood, Arterial 10/26/2024 5 :14 AM EDT 10/26/2024 5:31 AM EDT Harvey Domínguez III, MD POINT OF CARE TEST ORDERABLES Final Result [facility] [address] * POC Chloride (10/26/2024 5:14 AM EDT) POC Chloride 104 98 - 110 mmol/L 10/26/2024 5:31 AM EDT [facility] Blood, Arterial 10/26/2024 5 :14 AM EDT 10/26/2024 5:31 AM EDT us Harvey Domínguez III, MD POINT OF CARE TEST ORDERABLES Final Result Performing Organization Address City/[facility] Co de Phone Number [facility] [address] [facility]. [address] * (ABNORMAL) POC Hemoglobin (10/26/2024 5:14 AM EDT) POC Hemoglobin 9.5(L) 14.0 - 18.0 g/dL 10/26/2024 5:31 AM EDT [facility] Blood, Arterial 10/26/2024 5 :14 AM EDT 10/26/2024 5:31 AM EDT Harvey Domínguez III, MD POINT OF CARE TEST ORDERABLES Final Result Performing Organization Address [facility] Co de Phone Number [facility] [address] [place] [address]. [address] * (ABNORMAL) POC hematocrit (10/26/2024 5:14 AM EDT) POC Hematocrit 28.0(L) 40 - 52 % 10/26/2024 5:31 AM EDT [facility] Blood, Arterial 10/26/2024 5 :14 AM EDT 10/26/2024 5:31 AM EDT us Harvey Domínguez III, MD POINT OF CARE TEST ORDERABLES Final Result Performing Organization Address City/[facility] Co de Phone Number [facility] [address] [facility]. [address] * POC Lactate (10/26/2024 5:14 AM EDT) POC Lactate 1.76 0.50 - 2.20 mmol/L 10/26/2024 5:31 AM EDT [facility] Blood, Arterial 10/26/2024 5 :14 AM EDT 10/26/2024 5:31 AM EDT us Harvey Domínguez III, MD POINT OF CARE TEST ORDERABLES Final Result Performing Organization Address City/[facility]/ZIP Co de Phone Number [facility] [address] [place] [address]. [address] * (ABNORMAL) POC Glucose (10/26/2024 5:14 AM EDT) POC Glucose, Arterial 183(H) 70 - 100 mg/dL 10/26/2024 5:31 AM EDT [facility] Blood, Arterial 10/26/2024 5 :14 AM EDT 10/26/2024 5:31 AM EDT Harvey Domínguez III, MD POINT OF CARE TEST ORDERABLES Final Result Performing Organization Address [facility] Co de Phone Number [facility] [address] [place] [address]. [address] * (ABNORMAL) POC Ionized Calcium (10/26/2024 5:14 AM EDT) POC Ionized Calcium 5.50(H) 4.50 - 5.30 mg/dL 10/26/2024 5:31 AM EDT [facility] Blood, Arterial 10/26/2024 5 :14 AM EDT 10/26/2024 5:31 AM EDT Harvey Domínguez III, MD POINT OF CARE TEST ORDERABLES Final Result Performing Organization Address City/[facility]/ZIP Co de Phone Number [facility] [address] * (ABNORMAL) POC Potassium (10/26/2024 5:14 AM EDT) POC Potassium 2.8(LL) 3.5 - 5.3 mmol/L 10/26/2024 5:31 AM EDT [facility] Blood, Arterial 10/26/2024 5 :14 AM EDT 10/26/2024 5:31 AM EDT Harvey Domínguez III, MD POINT OF CARE TEST ORDERABLES Final Result Performing Organization Address City/[facility]/ZIP Co de Phone Number [facility] [address] * POC Sodium (10/26/2024 5:14 AM EDT) POC Sodium 138 136 - 146 mmol/L 10/26/2024 5:31 AM EDT [facility] Blood, Arterial 10/26/2024 5 :14 AM EDT 10/26/2024 5:31 AM EDT Harvey Domínguez III, MD POINT OF CARE TEST ORDERABLES Final Result Performing Organization Address [facility] Co de Phone Number [facility] [address] [place] [address]. [address] * POC TCO2 (10/26/2024 5:14 AM EDT) POC TCO2, Arterial 23 23 - 27 mmol/L 10/26/2024 5:31 AM EDT [facility] Blood, Arterial 10/26/2024 5 :14 AM EDT 10/26/2024 5:31 AM EDT us Harvey Domínguez III, MD POINT OF CARE TEST ORDERABLES Final Result Performing Organization Address [facility] Co de Phone Number [facility] [address] [place] [address]. [address] * (ABNORMAL) POC O2 SAT (10/26/2024 5:14 AM EDT) POC O2 Saturation, Arterial 99(H) 95 - 98 % 10/26/2024 5:31 AM EDT [facility] Blood, Arterial 10/26/2024 5 :14 AM EDT 10/26/2024 5:31 AM EDT us Harvey Domínguez III, MD POINT OF CARE TEST ORDERABLES Final Result [facility] [address] [facility]. [address] * (ABNORMAL) POC Base Excess (10/26/2024 5:14 AM EDT) POC Base Excess, Arterial -5(L) -2 - 3 mmol/L 10/26/2024 5:31 AM EDT [facility] Blood, Arterial 10/26/2024 5 :14 AM EDT 10/26/2024 5:31 AM EDT us Harvey Domínguez III, MD POINT OF CARE TEST ORDERABLES Final Result Performing Organization Address City/[facility]/ZIP Co de Phone Number [facility] [address] [facility]. [address] * POC HCO3 (10/26/2024 5:14 AM EDT) POC HCO3, Arterial 22 22 - 26 mmol/L 10/26/2024 5:31 AM EDT [facility] Blood, Arterial 10/26/2024 5 :14 AM EDT 10/26/2024 5:31 AM EDT us Harvey Domínguez III, MD POINT OF CARE TEST ORDERABLES Final Result Performing Organization Address City/[facility]/ZIP Co de Phone Number [facility] [address] [facility]. [address] * (ABNORMAL) POC PO2 (10/26/2024 5:14 AM EDT) POC pO2, Arterial 133(H) 80 - 100 mm Hg 10/26/2024 5:31 AM EDT [facility] Blood, Arterial 10/26/2024 5 :14 AM EDT 10/26/2024 5:31 AM EDT us Harvey Domínguez III, MD POINT OF CARE TEST ORDERABLES Final Result [facility] [address] * POC PCO2 (10/26/2024 5:14 AM EDT) POC pCO2, Arterial 45 35 - 45 mm Hg 10/26/2024 5:31 AM EDT [facility] Blood, Arterial 10/26/2024 5 :14 AM EDT 10/26/2024 5:31 AM EDT Result [facility] Harvey Domínguez III, MD POINT OF CARE TEST ORDERABLES Final Result [facility] [address]. [address] * (ABNORMAL) POC pH (10/26/2024 5:14 AM EDT) POC pH, Arterial 7.29(L) 7.35 - 7.45 10/26/2024 5:31 AM EDT [facility] Blood, Arterial 10/26/2024 5 :14 AM EDT 10/26/2024 5:31 AM EDT Harvey Domínguez III, MD POINT OF CARE TEST ORDERABLES Final Result [facility] [address] [facility]. [address] * Transfuse Cryoprecipitate (10/26/2024 4:37 AM EDT) Eber Quinones MD NURSING TREATMENT ORDERA BLES - BLOOD ADMIN Final Result * Transfuse Cryoprecipitate (10/26/2024 4:37 AM EDT) Eber Quinones MD NURSING TREATMENT ORDERA BLES - BLOOD ADMIN Final Result * (ABNORMAL) POC INR (10/26/2024 4:27 AM EDT) Prothrombin Time INR, POC 2.3(H) 0.8 - 1.4 10/27/2024 6:51 AM EDT [facility] Comment: Test results may vary [...] POINT OF CARE TEST ORDERABLES Final Result [facility] [address] * POC Sample Type (10/26/2024 4:24 AM EDT) POC Sample Type Arterial 10/26/2024 5:09 AM EDT [facility] Blood, Arterial 10/26/2024 4 :24 AM EDT 10/26/2024 5:09 AM EDT us Harvey Domínguez III, MD POINT OF CARE TEST ORDERABLES Final Result Performing Organization Address City/[facility] Co de Phone Number [facility] [address] * POC Anion Gap (10/26/2024 4:24 AM EDT) POC Anion Gap, Arterial 14 3 - 16 mmol/L 10/26/2024 5:09 AM EDT [facility] Blood, Arterial 10/26/2024 4 :24 AM EDT 10/26/2024 5:09 AM EDT us Harvey Domínguez III, MD POINT OF CARE TEST ORDERABLES Final Result Performing Organization Address City/[facility]/ZIP Co de Phone Number [facility] [address] * POC Chloride (10/26/2024 4:24 AM EDT) POC Chloride 103 98 - 110 mmol/L 10/26/2024 5:09 AM EDT [facility] Blood, Arterial 10/26/2024 4 :24 AM EDT 10/26/2024 5:09 AM EDT us Harvey Domínguez III, MD POINT OF CARE TEST ORDERABLES Final Result [facility] [address] [place] [address]. [address] * (ABNORMAL) POC Hemoglobin (10/26/2024 4:24 AM EDT) Pathologist [facility] POC Hemoglobin 10.3(L) 14.0 - 18.0 g/dL 10/26/2024 5:09 AM EDT [facility] Blood, Arterial 10/26/2024 4 :24 AM EDT 10/26/2024 5:09 AM EDT us Harvey Domínguez III, MD POINT OF CARE TEST ORDERABLES Final Result Performing Organization Address City/[facility] Co de Phone Number [facility] [address] [place] [address]. [address] * (ABNORMAL) POC hematocrit (10/26/2024 4:24 AM EDT) Pathologist [facility] POC Hematocrit 30.0(L) 40 - 52 % 10/26/2024 5:09 AM EDT [facility] Blood, Arterial 10/26/2024 4 :24 AM EDT 10/26/2024 5:09 AM EDT us Harvey Domínguez III, MD POINT OF CARE TEST ORDERABLES Final Result Performing Organization Address City/[facility] Co de Phone Number [facility] [address] [facility]. [address] * (ABNORMAL) POC Lactate (10/26/2024 4:24 AM EDT) POC Lactate 2.43(H) 0.50 - 2.20 mmol/L 10/26/2024 5:09 AM EDT [facility] Blood, Arterial 10/26/2024 4 :24 AM EDT 10/26/2024 5:09 AM EDT us Harvey Domínguez III, MD POINT OF CARE TEST ORDERABLES Final Result Performing Organization Address City/[facility]/ZIP Co de Phone Number [facility] [address] [place] [address]. [address] * (ABNORMAL) POC Glucose (10/26/2024 4:24 AM EDT) Pathologist [facility] POC Glucose, Arterial 185(H) 70 - 100 mg/dL 10/26/2024 5:09 AM EDT [facility] Blood, Arterial 10/26/2024 4 :24 AM EDT 10/26/2024 5:09 AM EDT us Harvey Domínguez III, MD POINT OF CARE TEST ORDERABLES Final Result Performing Organization Address City/[facility] Co de Phone Number [facility] [address] [place] [address]. [address] * POC Ionized Calcium (10/26/2024 4:24 AM EDT) [facility] POC Ionized Calcium 5.20 4.50 - 5.30 mg/dL 10/26/2024 5:09 AM EDT [facility] Blood, Arterial 10/26/2024 4 :24 AM EDT 10/26/2024 5:09 AM EDT us Harvey Domínguez III, MD POINT OF CARE TEST ORDERABLES Final Result Performing Organization Address City/[facility] Co de Phone Number [facility] [address] [place] [address]. [address] * (ABNORMAL) POC Potassium (10/26/2024 4:24 AM EDT) POC Potassium 2.8(LL) 3.5 - 5.3 mmol/L 10/26/2024 5:09 AM EDT [facility] Blood, Arterial 10/26/2024 4 :24 AM EDT 10/26/2024 5:09 AM EDT Harvey Domínguez III, MD POINT OF CARE TEST ORDERABLES Final Result Performing Organization Address City/[facility] Co de Phone Number [facility] [address] [place] [address]. [address] * POC Sodium (10/26/2024 4:24 AM EDT) POC Sodium 139 136 - 146 mmol/L 10/26/2024 5:09 AM EDT [facility] Blood, Arterial 10/26/2024 4 :24 AM EDT 10/26/2024 5:09 AM EDT Harvey Domínguez III, MD POINT OF CARE TEST ORDERABLES Final Result Performing Organization Address [facility] Co de Phone Number [facility] [address] [place] [address]. [address] * POC TCO2 (10/26/2024 4:24 AM EDT) POC TCO2, Arterial 23 23 - 27 mmol/L 10/26/2024 5:09 AM EDT [facility] Blood, Arterial 10/26/2024 4 :24 AM EDT 10/26/2024 5:09 AM EDT us Harvey Domínguez III, MD POINT OF CARE TEST ORDERABLES Final Result Performing Organization Address City/[facility] Co de Phone Number [address] * POC O2 SAT (10/26/2024 4:24 AM EDT) POC O2 Saturation, Arterial 96 95 - 98 % 10/26/2024 5:09 AM EDT [facility] Blood, Arterial 10/26/2024 4 :24 AM EDT 10/26/2024 5:09 AM EDT us Harvey Domínguez III, MD POINT OF CARE TEST ORDERABLES Final Result [facility] [address] [facility]. [address] * (ABNORMAL) POC Base Excess (10/26/2024 4:24 AM EDT) POC Base Excess, Arterial -5(L) -2 - 3 mmol/L 10/26/2024 5:09 AM EDT [facility] Blood, Arterial 10/26/2024 4 :24 AM EDT 10/26/2024 5:09 AM EDT us Harvey Domínguez III, MD POINT OF CARE TEST ORDERABLES Final Result Performing Organization Address [facility]/ZIP Co de Phone Number [facility] [address] [facility]. [address] * POC HCO3 (10/26/2024 4:24 AM EDT) POC HCO3, Arterial 22 22 - 26 mmol/L 10/26/2024 5:09 AM EDT [facility] Blood, Arterial 10/26/2024 4 :24 AM EDT 10/26/2024 5:09 AM EDT us Harvey Domínguez III, MD POINT OF CARE TEST ORDERABLES Final Result [facility] [address] * POC PO2 (10/26/2024 4:24 AM EDT) POC pO2, Arterial 93 80 - 100 mm Hg 10/26/2024 5:09 AM EDT [facility] Blood, Arterial 10/26/2024 4 :24 AM EDT 10/26/2024 5:09 AM EDT Harvey Domínguez III, MD POINT OF CARE TEST ORDERABLES Final Result Performing Organization Address [facility] Co de Phone Number [facility] [address] * POC PCO2 (10/26/2024 4:24 AM EDT) POC pCO2, Arterial 44 35 - 45 mm Hg 10/26/2024 5:09 AM EDT [facility] Blood, Arterial 10/26/2024 4 :24 AM EDT 10/26/2024 5:09 AM EDT Result [facility] Harvey Domínguez III, MD POINT OF CARE TEST ORDERABLES Final Result Performing Organization Address [facility] Co de Phone Number [facility] [address] [facility]. [address] * (ABNORMAL) POC pH (10/26/2024 4:24 AM EDT) POC pH, Arterial 7.30(L) 7.35 - 7.45 10/26/2024 5:09 AM EDT [facility] Blood, Arterial 10/26/2024 4 :24 AM EDT 10/26/2024 5:09 AM EDT Result [facility] Harvey Domínguez III, MD POINT OF CARE TEST ORDERABLES Final Result Performing Organization Address [facility] Co de Phone Number [facility] [address] * Transfuse Platelets (10/26/2024 4:14 AM EDT) Result [facility] Ben Blake MD NURSING TREATMENT ORDERABLES - BLOOD ADMIN Final Result * Transfuse Fresh Frozen Plasma (10/26/2024 3:47 AM EDT) Result [facility] Ben Blake MD NURSING TREATMENT ORDERABLES - BLOOD ADMIN Final Result * (ABNORMAL) POC INR (10/26/2024 3:34 AM EDT) Prothrombin Time INR, POC 2.8(H) 0.8 - 1.4 10/27/2024 6:51 AM EDT [facility] Comment: Test results may vary [...] TEST ORDERABLES Final Result Performing Organization Address [facility] Co de Phone Number [facility] [address] [place] [address]. [address] * POC Sample Type (10/26/2024 3:31 AM EDT) POC Sample Type Arterial 10/26/2024 4:11 AM EDT [facility] Blood, Arterial 10/26/2024 3 :31 AM EDT 10/26/2024 4:11 AM EDT us Harvey Domínguez III, MD POINT OF CARE TEST ORDERABLES Final Result Performing Organization Address City/[facility] Co de Phone Number [facility] [address] [place] [address]. [address] * POC Anion Gap (10/26/2024 3:31 AM EDT) POC Anion Gap, Arterial 15 3 - 16 mmol/L 10/26/2024 4:11 AM EDT [facility] Blood, Arterial 10/26/2024 3 :31 AM EDT 10/26/2024 4:11 AM EDT us Harvey Domínguez III, MD POINT OF CARE TEST ORDERABLES Final Result Performing Organization Address [facility] Co de Phone Number [facility] [address] [facility]. [address] * POC Chloride (10/26/2024 3:31 AM EDT) POC Chloride 105 98 - 110 mmol/L 10/26/2024 4:11 AM EDT [facility] Blood, Arterial 10/26/2024 3 :31 AM EDT 10/26/2024 4:11 AM EDT us Harvey Domínguez III, MD POINT OF CARE TEST ORDERABLES Final Result Performing Organization Address [facility] Co de Phone Number [facility] [address] [facility]. [address] * (ABNORMAL) POC Hemoglobin (10/26/2024 3:31 AM EDT) POC Hemoglobin 9.7(L) 14.0 - 18.0 g/dL 10/26/2024 4:11 AM EDT [facility] Blood, Arterial 10/26/2024 3 :31 AM EDT 10/26/2024 4:11 AM EDT us Harvey Domínguez III, MD POINT OF CARE TEST ORDERABLES Final Result Performing Organization Address [facility] Co de Phone Number [facility] [address] [facility]. [address] * (ABNORMAL) POC hematocrit (10/26/2024 3:31 AM EDT) POC Hematocrit 29.0(L) 40 - 52 % 10/26/2024 4:11 AM EDT [facility] Blood, Arterial 10/26/2024 3 :31 AM EDT 10/26/2024 4:11 AM EDT us Harvey Domínguez III, MD POINT OF CARE TEST ORDERABLES Final Result Performing Organization Address City/State/[facility] Co de Phone Number [facility] [address] * (ABNORMAL) POC Lactate (10/26/2024 3:31 AM EDT) POC Lactate 3.54(H) 0.50 - 2.20 mmol/L 10/26/2024 4:11 AM EDT [facility] Blood, Arterial 10/26/2024 3 :31 AM EDT 10/26/2024 4:11 AM EDT us Harvey Domínguez III, MD POINT OF CARE TEST ORDERABLES Final Result Performing Organization Address [facility] Co de Phone Number [facility] [address] * (ABNORMAL) POC Glucose (10/26/2024 3:31 AM EDT) POC Glucose, Arterial 153(H) 70 - 100 mg/dL 10/26/2024 4:11 AM EDT [facility] Blood, Arterial 10/26/2024 3 :31 AM EDT 10/26/2024 4:11 AM EDT us Harvey Domínguez III, MD POINT OF CARE TEST ORDERABLES Final Result Performing Organization Address [facility] Co de Phone Number [facility] [address] * POC Ionized Calcium (10/26/2024 3:31 AM EDT) POC Ionized Calcium 5.10 4.50 - 5.30 mg/dL 10/26/2024 4:11 AM EDT [facility] Blood, Arterial 10/26/2024 3 :31 AM EDT 10/26/2024 4:11 AM EDT us Harvey Domínguez III, MD POINT OF CARE TEST ORDERABLES Final Result Performing Organization Address City/[facility]/ZIP Co de Phone Number [facility] [address] * (ABNORMAL) POC Potassium (10/26/2024 3:31 AM EDT) POC Potassium 2.6(LL) 3.5 - 5.3 mmol/L 10/26/2024 4:11 AM EDT [facility] Blood, Arterial 10/26/2024 3 :31 AM EDT 10/26/2024 4:11 AM EDT us Harvey Domínguez III, MD POINT OF CARE TEST ORDERABLES Final Result Performing Organization Address [facility] Co de Phone Number [facility] [address] * POC Sodium (10/26/2024 3:31 AM EDT) POC Sodium 138 136 - 146 mmol/L 10/26/2024 4:11 AM EDT [facility] Blood, Arterial 10/26/2024 3 :31 AM EDT 10/26/2024 4:11 AM EDT us Harvey Domínguez III, MD POINT OF CARE TEST ORDERABLES Final Result Performing Organization Address [facility] Co de Phone Number [facility] [address] * (ABNORMAL) POC TCO2 (10/26/2024 3:31 AM EDT) POC TCO2, Arterial 19(L) 23 - 27 mmol/L 10/26/2024 4:11 AM EDT [facility] Blood, Arterial 10/26/2024 3 :31 AM EDT 10/26/2024 4:11 AM EDT us Harvey Domínguez III, MD POINT OF CARE TEST ORDERABLES Final Result [facility] [address] * POC O2 SAT (10/26/2024 3:31 AM EDT) POC O2 Saturation, Arterial 97 95 - 98 % 10/26/2024 4:11 AM EDT [facility] Blood, Arterial 10/26/2024 3 :31 AM EDT 10/26/2024 4:11 AM EDT us Harvey Domínguez III, MD POINT OF CARE TEST ORDERABLES Final Result [facility] [address] * (ABNORMAL) POC Base Excess (10/26/2024 3:31 AM EDT) POC Base Excess, Arterial -9(L) -2 - 3 mmol/L 10/26/2024 4:11 AM EDT [facility] Blood, Arterial 10/26/2024 3 :31 AM EDT 10/26/2024 4:11 AM EDT us Harvey Domínguez III, MD POINT OF CARE TEST ORDERABLES Final Result Performing Organization Address City/[facility]/ZIP Co de Phone Number [facility] [address] * (ABNORMAL) POC HCO3 (10/26/2024 3:31 AM EDT) POC HCO3, Arterial 18(L) 22 - 26 mmol/L 10/26/2024 4:11 AM EDT [facility] Blood, Arterial 10/26/2024 3 :31 AM EDT 10/26/2024 4:11 AM EDT us Harvey Domínguez III, MD POINT OF CARE TEST ORDERABLES Final Result [facility] [address] * (ABNORMAL) POC PO2 (10/26/2024 3:31 AM EDT) POC pO2, Arterial 104(H) 80 - 100 mm Hg 10/26/2024 4:11 AM EDT [facility] Blood, Arterial 10/26/2024 3 :31 AM EDT 10/26/2024 4:11 AM EDT us Harvey Domínguez III, MD POINT OF CARE TEST ORDERABLES Final Result Performing Organization Address City/[facility]/ZIP Co de Phone Number [facility] [address] * POC PCO2 (10/26/2024 3:31 AM EDT) POC pCO2, Arterial 42 35 - 45 mm Hg 10/26/2024 4:11 AM EDT [facility] Blood, Arterial 10/26/2024 3 :31 AM EDT 10/26/2024 4:11 AM EDT us Harvey Domínguez III, MD POINT OF CARE TEST ORDERABLES Final Result Performing Organization Address [facility] Co de Phone Number [facility] [address] * (ABNORMAL) POC pH (10/26/2024 3:31 AM EDT) POC pH, Arterial 7.24(L) 7.35 - 7.45 10/26/2024 4:11 AM EDT [facility] Blood, Arterial 10/26/2024 3 :31 AM EDT 10/26/2024 4:11 AM EDT us Harvey Domínguez III, MD POINT OF CARE TEST ORDERABLES Final Result Performing Organization Address City/[facility]/ZIP Co de Phone Number [facility] [address] * (ABNORMAL) TEG-Global With Lysis (Baseline TEG with LY30, Will NOT Show Heparin Effect) (53:31 AM EDT) Pathologist [facility] Citrated Kaolin Reaction Time (TEGLYSIS) 6.8 4.6 - 9.1 minutes 10/26/2024 5:02 AM EDT [facility] Citrated Rapid Teg Maximum Amplitude (TEGLYSIS) <40.0(L) 52.0 - 70.0 mm 10/26/2024 5:02 AM EDT [facility] Citrated Functional Fibrinogen Maximum Amplitude (TEGLYSIS) <4.0(L) 15.0 - 32.0 mm 10/26/2024 5:02 AM EDT [facility] Citrated Kaolin Percent Lysis (TEGLYSIS) 1.4 0.0 - 2.6 % 10/26/2024 5:02 AM EDT [facility] Whole Blood (Citrate) 10/26/2024 3:31 AM EDT 10/26/2024 3:40 AM EDT us Eber Quinones MD LAB BLOOD ORDERABLES Fin al Result [facility] [address] * (ABNORMAL) CBC (10/26/2024 3:31 AM EDT) Pathologist [facility] WBC 9.5 3.8 - 10.8 10E3/uL 10/26/2024 3:48 AM EDT [facility] RBC 3.68(L) 4.20 - 5.80 10E6/uL 10/26/2024 3:48 AM EDT [facility] Hemoglobin 11.5(L) 13.2 - 17.1 g/dL 10/26/2024 3:48 AM EDT [facility] Hematocrit 33.0(L) 38.5 - 50.0 % 10/26/2024 3:48 AM EDT [facility] MCV 89.6 80.0 - 100.0 fL 10/26/2024 3:48 AM EDT [facility] MCH 31.1 27.0 - 33.0 pg 10/26/2024 3:48 AM EDT [facility] MCHC 34.8 32.0 - 36.0 g/dL 10/26/2024 3:48 AM EDT [facility] RDW 19.3(H) 11.0 - 15.0 % 10/26/2024 3:48 AM EDT [facility] Platelets 67(L) 140 - 400 10E3/uL 10/26/2024 3:48 AM EDT [facility] MPV 7.9 7.5 - 11.5 fL 10/26/2024 3:48 AM EDT [facility] Whole Blood 10/26/2024 3:31 AM EDT 10/26/2024 3:40 AM EDT Eber Quinones MD LAB BLOOD ORDERABLES Fin al Result Performing Organization Address [facility] de Phone Number [facility] [address] [facility]. [address] * (ABNORMAL) Protime-INR (10/26/2024 3:31 AM EDT) Protime 27.0(H) 12.1 - 15.1 seconds 10/26/2024 3:51 AM EDT [facility] INR 2.4(H) 0.9 - 1.1 10/26/2024 3:51 AM EDT [facility] Comment: RECOMMENDED THERAPEUTIC RANGES USING INR : Stable oral anticoagulant therapy: 2.0 - 3.0 Mechanical prosthetic heart valve: 2.5 - 3.5 Recurrent acute myocardial infarction: 2.5 - 3.5 Plasma 10/26/2024 3:31 AM EDT 10/26/2024 3:40 AM EDT us Eber Quinones MD LAB BLOOD ORDERABLES Fin al Result Performing Organization Address [facility] Co de Phone Number [facility] [address] [facility]. [address] * (ABNORMAL) Fibrinogen (10/26/2024 3:31 AM EDT) Fibrinogen 104(L) 218 - 406 mg/dL 10/26/2024 3:56 AM EDT [facility] Plasma 10/26/2024 3:31 AM EDT 10/26/2024 3:40 AM EDT Eber Quinones MD LAB BLOOD ORDERABLES Fin al Result [facility] [address] [place] [id number], [facility] * Transfuse Fresh Frozen Plasma (10/26/2024 [...] Transfuse RBC (10/26/2024 1:45 AM EDT) Result [facility] us Ben Blake MD NURSING TREATMENT ORDERABLES - BLOOD ADMIN Final Result * Transfuse RBC (10/26/2024 1:45 AM EDT) Result Tiburcio Blake MD NURSING TREATMENT ORDERABLES - BLOOD ADMIN Final Result * (ABNORMAL) POC INR (10/26/2024 1:43 AM EDT) Prothrombin Time INR, POC 1.9(H) 0.8 - 1.4 10/27/2024 6:51 AM EDT [facility] Comment: Test results may vary using different testing platforms. Serial result monitoring should be performed using the same methodology. RECOMMENDED THERAPEUTIC RANGES USING INR : Stable oral anticoagulant therapy: 2.0 - 3.0 Mechanical prosthetic heart valve: 2.5 - 3.5 Recurrent acute myocardial infarction: 2.5 - 3.5 Blood 10/26/2024 1:43 AM EDT 10/27/2024 6:51 AM EDT Result [facility] us Harvey Domínguez III, MD POINT OF CARE TEST ORDERABLES Final Result [facility] [address] [place] [id number] * Transfuse Fresh Frozen Plasma (10/26/2024 1:41 AM EDT) Result Tiburcio Blake MD NURSING TREATMENT ORDERABLES - BLOOD ADMIN Final Result * Transfuse RBC (10/26/2024 1:40 AM EDT) Result [facility] us Ben Blake MD NURSING TREATMENT ORDERABLES - BLOOD ADMIN Final Result * POC Sample Type (10/26/2024 1:40 AM EDT) POC Sample Type Arterial 10/26/2024 2:32 AM EDT [facility] Blood, Arterial 10/26/2024 1 :40 AM EDT 10/26/2024 2:32 AM EDT us Harvey Domínguez III, MD POINT OF CARE TEST ORDERABLES Final Result Performing Organization Address [facility] Co de Phone Number [facility] [address] [facility]. [address] * POC Anion Gap (10/26/2024 1:40 AM EDT) POC Anion Gap, Arterial 13 3 - 16 mmol/L 10/26/2024 2:32 AM EDT [facility] Blood, Arterial 10/26/2024 1 :40 AM EDT 10/26/2024 2:32 AM EDT us Harvey Domínguez III, MD POINT OF CARE TEST ORDERABLES Final Result Performing Organization Address [facility] Co de Phone Number [facility] [address] [facility]. [address] * POC Chloride (10/26/2024 1:40 AM EDT) POC Chloride 104 98 - 110 mmol/L 10/26/2024 2:32 AM EDT [facility] Blood, Arterial 10/26/2024 1 :40 AM EDT 10/26/2024 2:32 AM EDT us Harvey Domínguez III, MD POINT OF CARE TEST ORDERABLES Final Result Performing Organization Address [facility] Co de Phone Number [facility] [address] [facility]. [address] * (ABNORMAL) POC Hemoglobin (10/26/2024 1:40 AM EDT) POC Hemoglobin 7.4(L) 14.0 - 18.0 g/dL 10/26/2024 2:32 AM EDT [facility] Blood, Arterial 10/26/2024 1 :40 AM EDT 10/26/2024 2:32 AM EDT us Harvey Domínguez III, MD POINT OF CARE TEST ORDERABLES Final Result [facility] [address] * (ABNORMAL) POC hematocrit (10/26/2024 1:40 AM EDT) POC Hematocrit 22.0(L) 40 - 52 % 10/26/2024 2:32 AM EDT [facility] Blood, Arterial 10/26/2024 1 :40 AM EDT 10/26/2024 2:32 AM EDT us Harvey Domínguez III, MD POINT OF CARE TEST ORDERABLES Final Result Performing Organization Address [facility] Co de Phone Number [facility] [address] * (ABNORMAL) POC Lactate (10/26/2024 1:40 AM EDT) POC Lactate 2.30(H) 0.50 - 2.20 mmol/L 10/26/2024 2:32 AM EDT [facility] Blood, Arterial 10/26/2024 1 :40 AM EDT 10/26/2024 2:32 AM EDT us Harvey Domínguez III, MD POINT OF CARE TEST ORDERABLES Final Result Performing Organization Address [facility] Co de Phone Number [facility] [address] * (ABNORMAL) POC Glucose (10/26/2024 1:40 AM EDT) POC Glucose, Arterial 116(H) 70 - 100 mg/dL 10/26/2024 2:32 AM EDT [facility] Blood, Arterial 10/26/2024 1 :40 AM EDT 10/26/2024 2:32 AM EDT us Harvey Domínguez III, MD POINT OF CARE TEST ORDERABLES Final Result [facility] [address] * (ABNORMAL) POC Ionized Calcium (10/26/2024 1:40 AM EDT) POC Ionized Calcium 4.10(L) 4.50 - 5.30 mg/dL 10/26/2024 2:32 AM EDT [facility] Blood, Arterial 10/26/2024 1 :40 AM EDT 10/26/2024 2:32 AM EDT us Harvey Domínguez III, MD POINT OF CARE TEST ORDERABLES Final Result Performing Organization Address City/[facility]/ZIP Co de Phone Number [facility] [address] * (ABNORMAL) POC Potassium (10/26/2024 1:40 AM EDT) POC Potassium 2.6(LL) 3.5 - 5.3 mmol/L 10/26/2024 2:32 AM EDT [facility] Blood, Arterial 10/26/2024 1 :40 AM EDT 10/26/2024 2:32 AM EDT us Harvey Domínguez III, MD POINT OF CARE TEST ORDERABLES Final Result Performing Organization Address [facility]/ZIP Co de Phone Number [facility] [address] * (ABNORMAL) POC Sodium (10/26/2024 1:40 AM EDT) POC Sodium 135(L) 136 - 146 mmol/L 10/26/2024 2:32 AM EDT [facility] Blood, Arterial 10/26/2024 1 :40 AM EDT 10/26/2024 2:32 AM EDT us Harvey Domínguez III, MD POINT OF CARE TEST ORDERABLES Final Result [facility] [address] * (ABNORMAL) POC TCO2 (10/26/2024 1:40 AM EDT) POC TCO2, Arterial 19(L) 23 - 27 mmol/L 10/26/2024 2:32 AM EDT [facility] Blood, Arterial 10/26/2024 1 :40 AM EDT 10/26/2024 2:32 AM EDT Harvey Domínguez III, MD POINT OF CARE TEST ORDERABLES Final Result [facility] [address] * (ABNORMAL) POC O2 SAT (10/26/2024 1:40 AM EDT) POC O2 Saturation, Arterial 99(H) 95 - 98 % 10/26/2024 2:32 AM EDT [facility] Blood, Arterial 10/26/2024 1 :40 AM EDT 10/26/2024 2:32 AM EDT us Harvey Domínguez III, MD POINT OF CARE TEST ORDERABLES Final Result Performing Organization Address City/[facility]/ZIP Co de Phone Number [facility] [address] * (ABNORMAL) POC Base Excess (10/26/2024 1:40 AM EDT) POC Base Excess, Arterial -7(L) -2 - 3 mmol/L 10/26/2024 2:32 AM EDT [facility] Blood, Arterial 10/26/2024 1 :40 AM EDT 10/26/2024 2:32 AM EDT us Harvye Domínguez III, MD POINT OF CARE TEST ORDERABLES Final Result [facility] [address] * (ABNORMAL) POC HCO3 (10/26/2024 1:40 AM EDT) POC HCO3, Arterial 18(L) 22 - 26 mmol/L 10/26/2024 2:32 AM EDT [facility] Blood, Arterial 10/26/2024 1 :40 AM EDT 10/26/2024 2:32 AM EDT Harvey Domínguez III, MD POINT OF CARE TEST ORDERABLES Final Result [facility] [address] [facility]. [address] * (ABNORMAL) POC PO2 (10/26/2024 1:40 AM EDT) POC pO2, Arterial 145(H) 80 - 100 mm Hg 10/26/2024 2:32 AM EDT [facility] Blood, Arterial 10/26/2024 1 :40 AM EDT 10/26/2024 2:32 AM EDT Harvey Domínguez III, MD POINT OF CARE TEST ORDERABLES Final Result [facility] [address] [facility]. [address] * (ABNORMAL) POC PCO2 (10/26/2024 1:40 AM EDT) POC pCO2, Arterial 33(L) 35 - 45 mm Hg 10/26/2024 2:32 AM EDT [facility] Blood, Arterial 10/26/2024 1 :40 AM EDT 10/26/2024 2:32 AM EDT us Harvey Domínguez III, MD POINT OF CARE TEST ORDERABLES Final Result [facility] [address] [facility]. [address] * POC pH (10/26/2024 1:40 AM EDT) POC pH, Arterial 7.35 7.35 - 7.45 10/26/2024 2:32 AM EDT [facility] Blood, Arterial 10/26/2024 1 :40 AM EDT 10/26/2024 2:32 AM EDT us Harvey Domínguez III, MD POINT OF CARE TEST ORDERABLES Final Result Performing Organization Address City/[facility]/ZIP Co de Phone Number [facility] [address] * Transfuse Fresh Frozen Plasma (10/26/2024 1:20 AM EDT) us Ben Blake MD NURSING TREATMENT ORDERABLES - BLOOD ADMIN Final Result * Transfuse RBC (10/26/2024 12:56 AM EDT) us Ben Blake MD NURSING TREATMENT ORDERABLES - BLOOD ADMIN Final Result * (ABNORMAL) POC INR (10/26/2024 12:41 AM EDT) Prothrombin Time INR, POC 2.0(H) 0.8 - 1.4 10/27/2024 6:51 AM EDT [facility] Comment: Test results may vary [...] TEST ORDERABLES Final Result Performing Organization Address City/[facility]/ZIP Co de Phone Number [facility] [address] * POC Sample Type (10/26/2024 12:39 AM EDT) [facility] POC Sample Type Arterial 10/26/2024 1:38 AM EDT [facility] Blood, Arterial 10/26/2024 1 2:39 AM EDT 10/26/2024 1:38 AM EDT us Harvey Domínguez III, MD POINT OF CARE TEST ORDERABLES Final Result Performing Organization Address City/[facility]/ZIP Co de Phone Number [facility] [address] [place] [address]. [address] * POC Anion Gap (10/26/2024 12:39 AM EDT) [facility] POC Anion Gap, Arterial 13 3 - 16 mmol/L 10/26/2024 1:38 AM EDT [facility] Blood, Arterial 10/26/2024 1 2:39 AM EDT 10/26/2024 1:38 AM EDT us Harvey Domínguez III, MD POINT OF CARE TEST ORDERABLES Final Result Performing Organization Address [facility] Co de Phone Number [facility] [address] [facility]. [address] * POC Chloride (10/26/2024 12:39 AM EDT) [facility] POC Chloride 103 98 - 110 mmol/L 10/26/2024 1:38 AM EDT [facility] Blood, Arterial 10/26/2024 1 2:39 AM EDT 10/26/2024 1:38 AM EDT us Harvey Domínguez III, MD POINT OF CARE TEST ORDERABLES Final Result Performing Organization Address [facility] Co de Phone Number [facility] [address] [place] [address]. [address] * (ABNORMAL) POC Hemoglobin (10/26/2024 12:39 AM EDT) [facility] POC Hemoglobin 7.9(L) 14.0 - 18.0 g/dL 10/26/2024 1:38 AM EDT [facility] Blood, Arterial 10/26/2024 1 2:39 AM EDT 10/26/2024 1:38 AM EDT us Harvey Domínguez III, MD POINT OF CARE TEST ORDERABLES Final Result Performing Organization Address City/[facility]/ZIP Co de Phone Number [facility] [address] [facility]. [address] * (ABNORMAL) POC hematocrit (10/26/2024 12:39 AM EDT) POC Hematocrit 23.0(L) 40 - 52 % 10/26/2024 1:38 AM EDT [facility] Blood, Arterial 10/26/2024 1 2:39 AM EDT 10/26/2024 1:38 AM EDT us Harvey Domínguez III, MD POINT OF CARE TEST ORDERABLES Final Result Performing Organization Address [facility] Co de Phone Number [facility] [address] [facility]. [address] * POC Lactate (10/26/2024 12:39 AM EDT) POC Lactate 1.39 0.50 - 2.20 mmol/L 10/26/2024 1:38 AM EDT [facility] Blood, Arterial 10/26/2024 1 2:39 AM EDT 10/26/2024 1:38 AM EDT us Harvey Domínguez III, MD POINT OF CARE TEST ORDERABLES Final Result Performing Organization Address City/[facility] Co de Phone Number [facility] [address] [facility]. [address] * (ABNORMAL) POC Glucose (10/26/2024 12:39 AM EDT) POC Glucose, Arterial 116(H) 70 - 100 mg/dL 10/26/2024 1:38 AM EDT [facility] Blood, Arterial 10/26/2024 1 2:39 AM EDT 10/26/2024 1:38 AM EDT us Harvey Domínguez III, MD POINT OF CARE TEST ORDERABLES Final Result Performing Organization Address [facility] Co de Phone Number [facility] [address] * (ABNORMAL) POC Ionized Calcium (10/26/2024 12:39 AM EDT) POC Ionized Calcium 4.30(L) 4.50 - 5.30 mg/dL 10/26/2024 1:38 AM EDT [facility] Blood, Arterial 10/26/2024 1 2:39 AM EDT 10/26/2024 1:38 AM EDT us Harvey Domínguez III, MD POINT OF CARE TEST ORDERABLES Final Result Performing Organization Address [facility] Co de Phone Number [facility] [address] [facility]. [address] * (ABNORMAL) POC Potassium (10/26/2024 12:39 AM EDT) POC Potassium 2.4(LL) 3.5 - 5.3 mmol/L 10/26/2024 1:38 AM EDT [facility] Blood, Arterial 10/26/2024 1 2:39 AM EDT 10/26/2024 1:38 AM EDT us Harvey Domínguez III, MD POINT OF CARE TEST ORDERABLES Final Result Performing Organization Address City/[facility] Co de Phone Number [facility] [address] [facility]. [address] * POC Sodium (10/26/2024 12:39 AM EDT) POC Sodium 136 136 - 146 mmol/L 10/26/2024 1:38 AM EDT [facility] Blood, Arterial 10/26/2024 1 2:39 AM EDT 10/26/2024 1:38 AM EDT us Harvey Domínguez III, MD POINT OF CARE TEST ORDERABLES Final Result Performing Organization Address City/[facility] Co de Phone Number [facility] [address] * (ABNORMAL) POC TCO2 (10/26/2024 12:39 AM EDT) POC TCO2, Arterial 21(L) 23 - 27 mmol/L 10/26/2024 1:38 AM EDT [facility] Blood, Arterial 10/26/2024 1 2:39 AM EDT 10/26/2024 1:38 AM EDT us Harvey Domínguez III, MD POINT OF CARE TEST ORDERABLES Final Result Performing Organization Address [facility] Co de Phone Number [facility] [address] * POC O2 SAT (10/26/2024 12:39 AM EDT) POC O2 Saturation, Arterial 98 95 - 98 % 10/26/2024 1:38 AM EDT [facility] Blood, Arterial 10/26/2024 1 2:39 AM EDT 10/26/2024 1:38 AM EDT Harvey Domínguez III, MD POINT OF CARE TEST ORDERABLES Final Result Performing Organization Address City/[facility] Co de Phone Number [facility] [address] [facility]. [address] * (ABNORMAL) POC Base Excess (10/26/2024 12:39 AM EDT) POC Base Excess, Arterial -7(L) -2 - 3 mmol/L 10/26/2024 1:38 AM EDT [facility] Blood, Arterial 10/26/2024 1 2:39 AM EDT 10/26/2024 1:38 AM EDT us Harvey Domínguez III, MD POINT OF CARE TEST ORDERABLES Final Result Performing Organization Address City/[facility] Co de Phone Number [facility] [address] [facility]. [address] * (ABNORMAL) POC HCO3 (10/26/2024 12:39 AM EDT) POC HCO3, Arterial 20(L) 22 - 26 mmol/L 10/26/2024 1:38 AM EDT [facility] Blood, Arterial 10/26/2024 1 2:39 AM EDT 10/26/2024 1:38 AM EDT us Harvey Domínguez III, MD POINT OF CARE TEST ORDERABLES Final Result Performing Organization Address [facility] Co de Phone Number [facility] [address] [facility]. [address] * (ABNORMAL) POC PO2 (10/26/2024 12:39 AM EDT) POC pO2, Arterial 117(H) 80 - 100 mm Hg 10/26/2024 1:38 AM EDT [facility] Blood, Arterial 10/26/2024 1 2:39 AM EDT 10/26/2024 1:38 AM EDT us Harvey Domínguez III, MD POINT OF CARE TEST ORDERABLES Final Result Performing Organization Address City/[facility] Co de Phone Number [facility] [address] [facility]. [address] * (ABNORMAL) POC PCO2 (10/26/2024 12:39 AM EDT) POC pCO2, Arterial 46(H) 35 - 45 mm Hg 10/26/2024 1:38 AM EDT [facility] Blood, Arterial 10/26/2024 1 2:39 AM EDT 10/26/2024 1:38 AM EDT us Harvey Domínguez III, MD POINT OF CARE TEST ORDERABLES Final Result Performing Organization Address [facility] Co de Phone Number [facility] [address] [facility]. [address] * (ABNORMAL) POC pH (10/26/2024 12:39 AM EDT) POC pH, Arterial 7.24(L) 7.35 - 7.45 10/26/2024 1:38 AM EDT [facility] Blood, Arterial 10/26/2024 1 2:39 AM EDT 10/26/2024 1:38 AM EDT us Harvey Domínguez III, MD POINT OF CARE TEST ORDERABLES Final Result Performing Organization Address [facility] de Phone Number [facility] [address] [facility]. [address] * Transfuse Platelets (10/26/2024 12:37 AM EDT) Result [facility] Ben Blake MD NURSING TREATMENT ORDERABLES - BLOOD ADMIN Final Result * Transfuse RBC (10/26/2024 12:31 AM EDT) Result [facility] Ben Blake MD NURSING TREATMENT ORDERABLES - BLOOD ADMIN Final Result * Transfuse Fresh Frozen Plasma (10/26/2024 12:28 AM EDT) Result [facility] Ben Blake MD NURSING TREATMENT ORDERABLES - BLOOD ADMIN Final Result * Transfuse Fresh Frozen Plasma (10/26/2024 12:28 AM EDT) Result [facility] Ben Blake MD NURSING TREATMENT ORDERABLES - BLOOD ADMIN Final Result * Routine Culture plus Stain (10/26/2024 12:03 AM EDT) Gram Stain Result Cytospin Results: [facility] Gram Stain Result Polymorphonuclear Leukocytes Seen; [facility] Gram Stain Result No Organisms Seen; [facility] Culture Result No Growth After 3 Days [facility] Surgical Swab ABDOMEN / Unknown 12:03 AM EDT Comment:2.) Ascites Anaerobhic culture Fungus culture Routine culture plus stain Narrative [facility] - 10/28/2024 9:38 PM EDT 2.) Ascites Anaerobhic culture Fungus culture Routine culture plus stain 2.) Ascites us Harvey Domínguez III, MD MICROBIOLOGY - [facility] ORDERABLES Final Result [facility] [address] [id number] * Surgical Pathology Exam (10/26/2024 12:00 AM EDT) 10/26/2024 10/27/2024 Narrative [facility] - 10/26/2024 12:00 AM EDT CASE: [id number] PATIENT: BLAIR GILBERT Clinical History: Liver - kidney transplant Pre-Operative Diagnosis: Alcoholic cirrhosis of liver Post-Operative Diagnosis: Alcoholic cirrhosis of liver Specimen(s) Submitted: A. [place] [facility] CPT Code(s): 98215 X 1; 06716 X 5 Additional Information: FINAL DIAGNOSIS: A. 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 - Negative for neoplasm. - Increased hepatocellular iron deposition (3+; Modified Scheuer). Gall bladder: -Intramucosal and submucosal vascular congestion and hemorrhage. - Negative for dysplasia or malignancy. Gross Description: Received in formalin, labeled Blair Gilbert and [place] [facility] , is a 2338-gram, hepatectomy specimen [...] discrete masses or other lesions are identified. [employer] sections are submitted in cassettes [id number] as follows: A1: Hilar margins, en face. [...] Pathologist signing this report is located at [facility], [address] [place] [address], [facility] [phone], CLIA ID: [id number] us Harvey Domínguez III, MD PATHOLOGY/CYTOLOGY ORDERABLES [...] POC INR (10/25/2024 11:43 PM EDT) Pathologist [facility] Prothrombin Time INR, POC 1.7(H) 0.8 - [...] POINT OF CARE TEST ORDERABLES Final Result [facility] [address] * POC Sample Type (10/25/2024 11:40 PM EDT) [facility] POC Sample Type Arterial 10/25/2024 11:57 PM EDT [facility] Blood, Arterial 10/25/2024 1 1:40 PM EDT 10/25/2024 11:57 PM EDT Harvey Domínguez III, MD POINT OF CARE TEST ORDERABLES Final Result [facility] [address] * POC Anion Gap (10/25/2024 11:40 PM EDT) Pathologist [facility] POC Anion Gap, Arterial 13 3 - 16 mmol/L 10/25/2024 11:57 PM EDT [facility] Blood, Arterial 10/25/2024 1 1:40 PM EDT 10/25/2024 11:57 PM EDT us Harvey Domínguez III, MD POINT OF CARE TEST ORDERABLES Final Result [facility] [address] [facility]. [address] * POC Chloride (10/25/2024 11:40 PM EDT) POC Chloride 102 98 - 110 mmol/L 10/25/2024 11:57 PM EDT [facility] Blood, Arterial 10/25/2024 1 1:40 PM EDT 10/25/2024 11:57 PM EDT us Harvey Domínguez III, MD POINT OF CARE TEST ORDERABLES Final Result Performing Organization Address City/[facility]/ZIP Co de Phone Number [facility] [address] [facility]. [address] * (ABNORMAL) POC Hemoglobin (10/25/2024 11:40 PM EDT) POC Hemoglobin 6.6(L) 14.0 - 18.0 g/dL 10/25/2024 11:57 PM EDT [facility] Blood, Arterial 10/25/2024 1 1:40 PM EDT 10/25/2024 11:57 PM EDT us Harvey Domínguez III, MD POINT OF CARE TEST ORDERABLES Final Result Performing Organization Address City/[facility] Co de Phone Number [facility] [address] [facility]. [address] * (ABNORMAL) POC hematocrit (10/25/2024 11:40 PM EDT) POC Hematocrit 19.0(L) 40 - 52 % 10/25/2024 11:57 PM EDT [facility] Blood, Arterial 10/25/2024 1 1:40 PM EDT 10/25/2024 11:57 PM EDT Harvey Domínguez III, MD POINT OF CARE TEST ORDERABLES Final Result [facility] [address] * POC Lactate (10/25/2024 11:40 PM EDT) POC Lactate 1.36 0.50 - 2.20 mmol/L 10/25/2024 11:57 PM EDT [facility] Blood, Arterial 10/25/2024 1 1:40 PM EDT 10/25/2024 11:57 PM EDT Harvey Domínguez III, MD POINT OF CARE TEST ORDERABLES Final Result Performing Organization Address [facility]/ZIP Co de Phone Number [facility] [address] [facility]. [address] * (ABNORMAL) POC Glucose (10/25/2024 11:40 PM EDT) Pathologist [facility] POC Glucose, Arterial 101(H) 70 - 100 mg/dL 10/25/2024 11:57 PM EDT [facility] Blood, Arterial 10/25/2024 1 1:40 PM EDT 10/25/2024 11:57 PM EDT Harvey Domínguez III, MD POINT OF CARE TEST ORDERABLES Final Result [facility] [address] [facility]. [address] * POC Ionized Calcium (10/25/2024 11:40 PM EDT) Pathologist [facility] POC Ionized Calcium 4.50 4.50 - 5.30 mg/dL 10/25/2024 11:57 PM EDT [facility] Blood, Arterial 10/25/2024 1 1:40 PM EDT 10/25/2024 11:57 PM EDT us Harvey Domínguez III, MD POINT OF CARE TEST ORDERABLES Final Result [facility] [address] [place] [address]. [address] * (ABNORMAL) POC Potassium (10/25/2024 11:40 PM EDT) Pathologist [facility] POC Potassium 1.9(LL) 3.5 - 5.3 mmol/L 10/25/2024 11:57 PM EDT [facility] Blood, Arterial 10/25/2024 1 1:40 PM EDT 10/25/2024 11:57 PM EDT Harvey Domínguez III, MD POINT OF CARE TEST ORDERABLES Final Result Performing Organization Address City/[facility]/ZIP Co de Phone Number [facility] [address] [facility]. [address] * (ABNORMAL) POC Sodium (10/25/2024 11:40 PM EDT) Pathologist [facility] POC Sodium 135(L) 136 - 146 mmol/L 10/25/2024 11:57 PM EDT [facility] Blood, Arterial 10/25/2024 1 1:40 PM EDT 10/25/2024 11:57 PM EDT Harvey Domínguez III, MD POINT OF CARE TEST ORDERABLES Final Result Performing Organization Address City/[facility]/ZIP Co de Phone Number [facility] [address] [facility]. [address] * (ABNORMAL) POC TCO2 (10/25/2024 11:40 PM EDT) Pathologist [facility] POC TCO2, Arterial 21(L) 23 - 27 mmol/L 10/25/2024 11:57 PM EDT [facility] Blood, Arterial 10/25/2024 1 1:40 PM EDT 10/25/2024 11:57 PM EDT us Harvey Domínguez III, MD POINT OF CARE TEST ORDERABLES Final Result [facility] [address] * POC O2 SAT (10/25/2024 11:40 PM EDT) POC O2 Saturation, Arterial 98 95 - 98 % 10/25/2024 11:57 PM EDT [facility] Blood, Arterial 10/25/2024 1 1:40 PM EDT 10/25/2024 11:57 PM EDT Harvey Domínguez III, MD POINT OF CARE TEST ORDERABLES Final Result Performing Organization Address City/[facility]/ZIP Co de Phone Number [facility] [address] [facility]. [address] * (ABNORMAL) POC Base Excess (10/25/2024 11:40 PM EDT) POC Base Excess, Arterial -6(L) -2 - 3 mmol/L 10/25/2024 11:57 PM EDT [facility] Blood, Arterial 10/25/2024 1 1:40 PM EDT 10/25/2024 11:57 PM EDT Harvey Domínguez III, MD POINT OF CARE TEST ORDERABLES Final Result Performing Organization Address City/[facility]/ZIP Co de Phone Number [facility] [address] [facility]. [address] * (ABNORMAL) POC HCO3 (10/25/2024 11:40 PM EDT) POC HCO3, Arterial 20(L) 22 - 26 mmol/L 10/25/2024 11:57 PM EDT [facility] Blood, Arterial 10/25/2024 1 1:40 PM EDT 10/25/2024 11:57 PM EDT us Harvey Domínguez III, MD POINT OF CARE TEST ORDERABLES Final Result Performing Organization Address City/[facility]/ZIP Co de Phone Number [facility] [address] * (ABNORMAL) POC PO2 (10/25/2024 11:40 PM EDT) POC pO2, Arterial 107(H) 80 - 100 mm Hg 10/25/2024 11:57 PM EDT [facility] Blood, Arterial 10/25/2024 1 1:40 PM EDT 10/25/2024 11:57 PM EDT us Harvey Domínguez III, MD POINT OF CARE TEST ORDERABLES Final Result Performing Organization Address [facility] Co de Phone Number [facility] [address] [facility]. [address] * POC PCO2 (10/25/2024 11:40 PM EDT) POC pCO2, Arterial 41 35 - 45 mm Hg 10/25/2024 11:57 PM EDT [facility] Blood, Arterial 10/25/2024 1 1:40 PM EDT 10/25/2024 11:57 PM EDT Harvey Domínguez III, MD POINT OF CARE TEST ORDERABLES Final Result [facility] [address] * (ABNORMAL) POC pH (10/25/2024 11:40 PM EDT) POC pH, Arterial 7.29(L) 7.35 - 7.45 10/25/2024 11:57 PM EDT [facility] Blood, Arterial 10/25/2024 1 1:40 PM EDT 10/25/2024 11:57 PM EDT Harvey Domínguez III, MD POINT OF CARE TEST ORDERABLES Final Result [facility] [address] * Urine culture (10/25/2024 11:08 PM EDT) Culture Result <1,000 cfu/mL [facility] Culture Result Skin/Urogeni rony Mckayla. No Further Workup. [facility] Newly Placed Berkowitz Urine URINE SPECIMEN / Unknown 10/25/2024 11:08 PM EDT Comment:urine culture Narrative [facility] - 10/28/2024 9:59 AM EDT urine culture urine culture Harvey Domínguez III, MD MICROBIOLOGY - GENE RAL ORDERABLES Final Result Performing Organization Address City/[facility]/ZIP Co de Phone Number [facility] [address] * X-ray Portable Chest (10/25/2024 10:19 [...] - 2.2 mmol/L 10/25/2024 10:39 PM EDT [facility] Plasma 10/25/2024 10:1 7 PM EDT 10/25/2024 10:17 PM EDT Ben Blake MD LAB BLOOD ORDERABLES Final Re sult [facility] [address] [facility] [place] [address], [facility] * (ABNORMAL) Ferritin (10/25/2024 10:17 PM EDT) Ferritin 623.2(H) 23.9 - 336.2 ng/mL 10/25/2024 11:02 PM EDT [facility] Serum 10/25/2024 10:1 7 PM EDT 10/25/2024 10:17 PM EDT Leandra Og MD LAB BLOOD ORDERABLES F inal Result [facility] [address] [facility]. [address] * Iron Studies (Iron + TIBC) (10/25/2024 10:17 PM EDT) Iron 128 50 - 212 ug/dL 10/25/2024 10:44 PM EDT [facility] % Iron Saturation SEE COMMENT 15.0 - 55.0 % 10/25/2024 10:44 PM EDT [facility] Comment:Unable to calculate result because contributing result outside reportable range.. TIBC SEE COMMENT 261 - 462 ug/dL 10/25/2024 10:44 PM EDT [facility] Comment:Unable to calculate result because contributing result outside reportable range.. Serum 10/25/2024 10:1 7 PM EDT 10/25/2024 10:17 PM EDT us Leandra Og MD LAB BLOOD ORDERABLES F inal Result Performing Organization Address City/[facility]/ZIP Co de Phone Number [facility] [address] [facility]. [address] * PTH (10/25/2024 10:17 PM EDT) PTH 36.0 12.0 - 88.0 pg/mL 10/25/2024 11:01 PM EDT [facility] Serum 10/25/2024 10:1 7 PM EDT 10/25/2024 10:17 PM EDT Leandra Og MD LAB BLOOD ORDERABLES F inal Result [facility] [address] [facility]. [address] * HIV 1+2 Antibody/Antigen with Reflex (10/25/2024 10:17 PM EDT) HIV 1+2 AB/AGN Nonreactive Nonreactive 10/25/2024 11:03 PM EDT [facility] Serum 10/25/2024 10:1 7 PM EDT 10/25/2024 10:16 PM EDT [facility] - 10/25/2024 11:03 PM EDT \HIVRNR Leandra Og MD LAB BLOOD ORDERABLES F inal Result Performing Organization Address [facility] Co de Phone Number [facility] [address] [place] [address]. [address] * Hepatitis B Core Antibody (10/25/2024 10:17 PM EDT) Hep B Core Total Ab Nonreactive Nonreactive 10/25/2024 11:07 PM EDT [facility] Comment:Health Department no tified in accordance with reportable infectious disease guidelines. Serum 10/25/2024 10:1 7 PM EDT 10/25/2024 10:17 PM EDT [facility] - 10/25/2024 11:07 PM EDT A nonreactive final interpretation indicates that anti-HBc antibodies were not detected in the sample; it is possible that the individual is not infected with HBV. Leandra Og MD LAB BLOOD ORDERABLES F inal Result Performing Organization Address City/[facility]/ZIP Co de Phone Number [facility] [address] [place] [address]. [address] * Hepatitis C Antibody (10/25/2024 10:17 PM EDT) HCV Ab Nonreactive Nonreactive 10/25/2024 11:16 PM EDT [facility] Comment:Health Department no tified in accordance with reportable infectious disease guidelines. Serum 10/25/2024 10:1 7 PM EDT 10/25/2024 10:17 PM EDT [facility] - 10/25/2024 11:16 PM EDT Antibodies to HCV not detected; does not exclude the possibility of exposure to HCV. us Leandra Og MD LAB BLOOD ORDERABLES F inal Result Performing Organization Address [facility] Co de Phone Number [facility] [address] [facility]. [address] * (ABNORMAL) Hepatitis B Surface Antibody, Quantitati (10/25/2024 10:17 PM EDT) [facility] HBSAB NUMBER 10.70(H) 0.00 - 9.99 mIU/mL 10/25/2024 11:52 PM EDT [facility] Hep B S Ab Equivocal (A) Nonreactive 10/25/2024 11:52 PM EDT [facility] Serum 10/25/2024 10:1 7 PM EDT 10/25/2024 10:17 PM EDT us Leandra Og MD LAB BLOOD ORDERABLES F inal Result Performing Organization Address [facility] Co de Phone Number [facility] [address] [facility]. [address] * Hepatitis B surface antigen (10/25/2024 10:17 PM EDT) [facility] Hep B Surface Ag Nonreactive Nonreactive 10/25/2024 11:12 PM EDT [facility] Comment:Health Department no tified in accordance with reportable infectious disease guidelines. Serum 10/25/2024 10:1 7 PM EDT 10/25/2024 10:17 PM EDT Narrative [facility] - 10/25/2024 11:12 PM EDT Specimen is considered negative for HBsAg. us Leandra Og MD LAB BLOOD ORDERABLES F inal Result Performing Organization Address [facility] Co de Phone Number [facility] [address] [facility]. [address] * Hepatitis A Antibody Total (10/25/2024 10:17 PM EDT) [facility] Anti-HAV Total (IgG + IgM) Nonreactive 10/25/2024 11:13 PM EDT [facility] Serum 10/25/2024 10:1 7 PM EDT 10/25/2024 10:17 PM EDT [facility] - 10/25/2024 11:13 PM EDT HAV antibodies not detected Leandra Og MD LAB BLOOD ORDERABLES F inal Result Performing Organization Address City/[facility]/ZIP Co de Phone Number [facility] [address] [facility]. [address] * (ABNORMAL) Hepatic Function Panel (10/25/2024 10:17 PM EDT) Total Bilirubin 9.1(H) 0.0 - 1.5 mg/dL 10/25/2024 10:47 PM EDT [facility] Bilirubin, Direct 4.58(H) 0.00 - 0.40 mg/dL 10/25/2024 10:47 PM EDT [facility] AST 51(H) 13 - 39 U/L 10/25/2024 10:47 PM EDT [facility] ALT 23 7 - 52 U/L 10/25/2024 10:47 PM EDT [facility] Alkaline Phosphatase 144(H) 36 - 125 U/L 10/25/2024 10:47 PM EDT [facility] Total Protein 5.5(L) 6.4 - 8.9 g/dL 10/25/2024 10:47 PM EDT [facility] Albumin 3.5 3.5 - 5.7 g/dL 10/25/2024 10:47 PM EDT [facility] Bilirubin, Indirect 4.52(H) 0.00 - 1.10 mg/dL 10/25/2024 10:47 PM EDT [facility] Plasma 10/25/2024 10:1 7 PM EDT 10/25/2024 10:17 PM EDT us Leandra Og MD LAB BLOOD ORDERABLES F inal Result [facility] [address] * (ABNORMAL) Renal Function Panel w/EGFR (10/25/2024 10:17 PM EDT) Sodium 137 133 - 146 mmol/L 10/25/2024 10:47 PM EDT [facility] Potassium 2.1(LL) 3.5 - 5.3 mmol/L 10/25/2024 10:47 PM EDT [facility] Comment:Critical Result K:2. 1 Called to and read back by: ALICIA CARCAMO RN at: 10/25/2024 22:47:45 by:NANCY Chloride 100 98 - 110 mmol/L 10/25/2024 10:47 PM EDT [facility] CO2 20(L) 21 - 33 mmol/L 10/25/2024 10:47 PM EDT [facility] Anion Gap 17(H) 3 - 16 mmol/L 10/25/2024 10:47 PM EDT [facility] BUN 74(H) 7 - 25 mg/dL 10/25/2024 10:47 PM EDT [facility] Creatinine 3.87(H) 0.60 - 1.30 mg/dL 10/25/2024 10:47 PM EDT [facility] Glucose 114(H) 70 - 100 mg/dL 10/25/2024 10:47 PM EDT [facility] Calcium 9.3 8.6 - 10.3 mg/dL 10/25/2024 10:47 PM EDT [facility] Phosphorus 5.9(H) 2.1 - 4.7 mg/dL 10/25/2024 10:47 PM EDT [facility] Albumin 3.5 3.5 - 5.7 g/dL 10/25/2024 10:47 PM EDT [facility] Osmolality, Calculated 307(H) 278 - 305 mOsm/kg 10/25/2024 10:47 PM EDT [facility] EGFR 19 10/25/2024 10:47 PM EDT [facility] Comment:As of [...] ORDERABLES F inal Result Performing Organization Address [facility] Co de Phone Number [facility] [address] * (ABNORMAL) APTT, NO ANTICOAGULANT (10/25/2024 10:17 PM EDT) aPTT 41.7(H) 25.5 - 35.0 seconds 10/25/2024 10:36 PM EDT [facility] Plasma 10/25/2024 10:1 7 PM EDT 10/25/2024 10:17 PM EDT Leandra Og MD LAB BLOOD ORDERABLES F inal Result Performing Organization Address [facility]/ZIP Co de Phone Number [facility] [address] [facility]. [address] * (ABNORMAL) Protime-INR (10/25/2024 10:17 PM EDT) Protime 21.7(H) 12.1 - 15.1 seconds 10/25/2024 10:35 PM EDT [facility] INR 1.8(H) 0.9 - 1.1 10/25/2024 10:35 PM EDT [facility] Comment: RECOMMENDED THERAPEUTIC RANGES USING INR : Stable oral anticoagulant therapy: 2.0 - 3.0 Mechanical prosthetic heart valve: 2.5 - 3.5 Recurrent acute myocardial infarction: 2.5 - 3.5 Plasma 10/25/2024 10:1 7 PM EDT 10/25/2024 10:17 PM EDT us Leandra Og MD LAB BLOOD ORDERABLES F inal Result [facility] [address] [place], [place] [address] * (ABNORMAL) Differential (10/25/2024 10:17 PM EDT) Differential Comments See Note 10/25/2024 10:54 PM EDT [facility] Comment: _Platelets Appear Decreased _Platelet Morphology Normal Scan Result PERFORMED 10/25/2024 10:54 PM EDT [facility] Neutrophils Relative 79.8 40.0 - 80.0 % 10/25/2024 10:54 PM EDT [facility] Lymphocytes Relative 9.6(L) 15.0 - 45.0 % 10/25/2024 10:54 PM EDT [facility] Monocytes Relative 8.9 0.0 - 12.0 % 10/25/2024 10:54 PM EDT [facility] Eosinophils Relative 1.3 0.0 - 8.0 % 10/25/2024 10:54 PM EDT [facility] Basophils Relative 0.4 0.0 - 1.0 % 10/25/2024 10:54 PM EDT [facility] nRBC 0 0 - 0 /100 WBC 10/25/2024 10:54 PM EDT [facility] Neutrophils Absolute 4,948 1,520 - 8,640 /uL 10/25/2024 10:54 PM EDT [facility] Lymphocytes Absolute 595 570 - 4,860 /uL 10/25/2024 10:54 PM EDT [facility] Monocytes Absolute 552 0 - 1,296 /uL 10/25/2024 10:54 PM EDT [facility] Eosinophils Absolute 81 0 - 864 /uL 10/25/2024 10:54 PM EDT [facility] Basophils Absolute 25 0 - 108 /uL 10/25/2024 10:54 PM EDT [facility] PLT Morphology Platelet morphology appears normal 10/25/2024 10:54 PM EDT [facility] Whole Blood 10/25/2024 10:1 7 PM EDT 10/25/2024 10:17 PM EDT us Leandra Og MD LAB BLOOD ORDERABLES F inal Result [facility] [address] [id number], [facility] * (ABNORMAL) CBC (10/25/2024 10:17 PM EDT) WBC 6.2 3.8 - 10.8 10E3/uL 10/25/2024 10:54 PM EDT [facility] RBC 2.40(L) 4.20 - 5.80 10E6/uL 10/25/2024 10:54 PM EDT [facility] Hemoglobin 8.3(L) 13.2 - 17.1 g/dL 10/25/2024 10:54 PM EDT [facility] Hematocrit 23.7(L) 38.5 - 50.0 % 10/25/2024 10:54 PM EDT [facility] MCV 98.9 80.0 - 100.0 fL 10/25/2024 10:54 PM EDT [facility] MCH 34.6(H) 27.0 - 33.0 pg 10/25/2024 10:54 PM EDT [facility] MCHC 35.0 32.0 - 36.0 g/dL 10/25/2024 10:54 PM EDT [facility] RDW 17.8(H) 11.0 - 15.0 % 10/25/2024 10:54 PM EDT [facility] Platelets 56(L) 140 - 400 10E3/uL 10/25/2024 10:54 PM EDT [facility] Comment: Specimen checked for clots. None detected. Slide Reviewed for PLT Clumps. None Seen. Platelet Estimate Decreased 10/25/2024 10:54 PM EDT [facility] MPV 8.1 7.5 - 11.5 fL 10/25/2024 10:54 PM EDT [facility] Whole Blood 10/25/2024 10:1 7 PM EDT 10/25/2024 10:17 PM EDT [facility] - 10/25/2024 10:54 PM EDT Peripheral blood smear was scanned per review criteria approved by the laboratory faculty i on call medical assistant. Leandra Og MD LAB BLOOD ORDERABLES F inal Result Performing Organization Address [facility] de Phone Number [facility] [address] [place] [address] * Donor Specific Antibody (DSA) (10/25/2024 10:00 PM EDT) Pathologist [facility] AntiDonor Antibodies The request and specimen(s) for this test have been received and transported to the [facility] [place] at [address] [place] [address]. The [facility] will report results directly to the client. 10/25/2024 10:20 PM EDT [facility] Comment:Testing performed by [facility], [facility], [address] [place] [address]. The [facility] report has been forwarded to the appropriate ordering location. Please refer to this report for patient results. Serum 10/25/2024 10:0 0 PM EDT 10/25/2024 10:20 PM EDT Leandra Og MD LAB BLOOD ORDERABLES F inal Result Performing Organization Address [facility] Co de Phone Number [facility] [address] [place] [address] * (ABNORMAL) Venous Blood Gas, Line/Syringe (10/25/2024 10:00 PM EDT) PH-Line Draw 7.38 7.32 - 7.42 10/25/2024 10:08 PM EDT [facility] PCO2-Line Draw 33(L) 41 - 51 mm Hg 10/25/2024 10:08 PM EDT [facility] PO2-Line Draw 33 25 - 40 mm Hg 10/25/2024 10:08 PM EDT [facility] HCO3-Line Draw 20(L) 24 - 28 mmol/L 10/25/2024 10:08 PM EDT [facility] CO2 Content-Line Draw 21(L) 25 - 29 mmol/L 10/25/2024 10:08 PM EDT [facility] Base Excess-Line Draw -5.0(L) -2.0 - 3.0 mmol/L 10/25/2024 10:08 PM EDT [facility] %HBO2-Line Draw 53.8 40.0 - 70.0 % 10/25/2024 10:08 PM EDT [facility] Carboxyhgb-Ludivina e Draw 1.9 % 10/25/2024 10:08 PM EDT [facility] Comment: CARBOXYHEMOGLOBIN (CO) REFERENCE RANGES: Non-Smokers: <2 % Smokers: <8 % TOXIC: >20 % Methemoglobin- Line Draw 0.2 0.0 - 1.5 % 10/25/2024 10:08 PM EDT [facility] Reduced Hemoglobin-Ludivina e Draw 44.1(H) 0.0 - 5.0 % 10/25/2024 10:08 PM EDT [facility] Venous, Line Draw 10/25/2024 10:00 PM EDT 10/25/2024 10:04 PM EDT us Leandra Og MD LAB BLOOD ORDERABLES F inal Result [facility] [address] * (ABNORMAL) POC Glucose Monitoring Device (10/25/2024 9:56 PM EDT) POC Glucose Monitoring Device 103(H) 70 - 100 mg/dL 10/25/2024 9:58 PM EDT [facility] Blood 10/25/2024 9:56 PM EDT 10/25/2024 9:57 PM EDT us Harvey Domínguez III, MD POINT OF CARE TEST ORDERABLES Final Result Performing Organization Address City/[facility]/ZIP Co de Phone Number [facility] [address] * ECG 12 lead (MUSE) (10/25/2024 9:34 PM EDT) 10/25/2024 9:34 PM EDT Narrative MUSE - 10/27/2024 10:08 AM EDT Ventricular Rate: 97 BPM Atrial Rate: 86 BPM QRS Duration: 106 ms QT: 532 ms QTc: 675 ms P Martin: 38 degrees R Martin: -29 degrees T Martin: 32 degrees Diagnosis Line: Critical Test Result: Long QTc , AV Block ^ SINUS RHYTHM WITH PREMATURE VENTRICULAR COMPLEXES ^ PROLONGED QT ^ NONSPECIFIC ST AND T WAVE CHANGES ^ ABNORMAL ECG ^ ^ Confirmed by MD HA, NOAHYAR ([id number]) on 10/27/2024 10:08:26 AM Leandra Og MD ECG ORDERABLES Final Result Performing Organization Address City/[facility] Co de Phone Number MUSE * Hepatitis C RNA, Quant Reflex to Genotyp (10/25/2024 8:18 PM EDT) Pathologist [employer] Units Not Detected IU/mL 10/27/2024 11:03 AM EDT [facility] Comment:Test methodology for HCV RNA quantification is an FDA-approved nucleic acid amplification assay. The Lower Limit of Quantitation (LLOQ) is 15 IU/mL. The linear range of the assay is 15-100,000,000 IU/mL. The Limit of Detection (LoD) is 12.0 IU/mL for EDTA plasma. The reference range is Not Detected. IU log10 See Note log 10 IU/mL 10/27/2024 11:03 AM EDT [facility] Comment:HCV RNA not detected . Plasma 10/25/2024 8:18 PM EDT 10/25/2024 10:27 PM EDT Leandra Og MD LAB BLOOD ORDERABLES F inal Result [facility] [address] [place] [address], [facility] * Urinalysis w/Rfl to Microscopic (10/25/2024 8:18 PM EDT) Color, UA Yellow Yellow,Straw 10/25/2024 10:38 PM EDT [facility] Clarity, UA Clear Clear 10/25/2024 10:38 PM EDT [facility] Specific [place], UA 1.010 1.005 - 1.035 10/25/2024 10:38 PM EDT [facility] pH, UA 6.0 5.0 - 8.0 10/25/2024 10:38 PM EDT [facility] Protein, UA Negative Negative mg/dL 10/25/2024 10:38 PM EDT [facility] Glucose, UA Negative Negative mg/dL 10/25/2024 10:38 PM EDT [facility] Ketones, UA Negative Negative mg/dL 10/25/2024 10:38 PM EDT [facility] Bilirubin, UA Negative Negative 10/25/2024 10:38 PM EDT [facility] Blood, UA Negative Negative 10/25/2024 10:38 PM EDT [facility] Nitrite, UA Negative Negative 10/25/2024 10:38 PM EDT [facility] Urobilinogen, UA <2.0 0.2 - 1.9 mg/dL 10/25/2024 10:38 PM EDT [facility] Leukocyte Esterase, UA Negative Negative 10/25/2024 10:38 PM EDT [facility] Urine 10/25/2024 8:18 PM EDT 10/25/2024 10:35 PM EDT Narrative [facility] - 10/25/2024 10:38 PM EDT Microscopic testing is not performed when the dipstick is negative for blood, leukocyte, protein and nitrite. us Leandra Og MD URINE ORDERABLES Final Result [facility] [address] [place] [address], [facility] * Toxoplasma gondii antibody, IgG (10/25/2024 8:18 PM EDT) Toxoplasma Gondii IgG <3.0 0.0 - 7.1 IU/mL 10/27/2024 7:55 AM EDT [facility] Comment: Negative <7.2 Equivocal 7.2 - 8.7 Positive >8.7 Serum 10/25/2024 8:18 PM EDT 10/27/2024 8:06 AM EDT [facility] - 10/27/2024 8:06 AM EDT PERFORMED AT: [address] [id number] EXTRACT OPERATOR: Bassam Khalil, PhD PHONE: [phone] Leandra Og MD LAB BLOOD ORDERABLES F inal Result [facility] [address] * Antibody Screen (10/25/2024 7:46 PM EDT) Antibody Screen Negative 10/25/2024 10:41 PM EDT [facility] Blood 10/25/2024 7:46 PM EDT 10/25/2024 9:54 PM EDT Narrative [facility] - 10/25/2024 10:44 PM EDT Testing performed by [facility] Transfusion Service Ben Blake MD BLOOD BANK TEST ORDERABLES Fi nal Result Performing Organization Address [facility] Co de Phone Number [facility] [address] [place] [address] * ABO/Rh (10/25/2024 7:46 PM EDT) ABO Grouping O 10/25/2024 10:23 PM EDT [facility] Rh Type Positive 10/25/2024 10:23 PM EDT [facility] Blood 10/25/2024 7:46 PM EDT 10/25/2024 9:54 PM EDT Ben Blake MD BLOOD BANK TEST ORDERABLES Fi nal Result Performing Organization Address City/[facility] Co de Phone Number [facility] [address] * (ABNORMAL) TEG-Standard Global Hemostasis (Rapid TEG with Heparin Effect, Contains a Baseline TEG) (10/25/2024 7:46 PM EDT) Citrated Kaolin Reaction Time (TEGHEPARINASE) 8.4 4.6 - 9.1 minutes 10/25/2024 10:49 PM EDT [facility] Citrated Rapid Teg Maximum Amplitude (TEGHEPARINASE) <40.0(L) 52.0 - 70.0 mm 10/25/2024 10:49 PM EDT [facility] Citrated Functional Fibrinogen Maximum Amplitude (TEGHEPARINASE) 6.7(L) 15.0 - 32.0 mm 10/25/2024 10:49 PM EDT [facility] Citrated Kaolin W/Heparinase Reaction Time (TEGHEPARINASE) 8.1 4.3 - 8.3 minutes 10/25/2024 10:49 PM EDT [facility] Citrated Kaolin K-Time (TEGHEPARINASE) 2.5(A) 0.8 - 2.1 minutes 10/25/2024 10:49 PM EDT [facility] Citrated Kaolin Angle (TEGHEPARINASE) 65.7(A) 63.0 - 78.0 degrees 10/25/2024 10:49 PM EDT [facility] Citrated Kaolin Maximum Amplitude (TEGHEPARINASE) <40.0(L) 52.0 - 69.0 mm 10/25/2024 10:49 PM EDT [facility] Citrated Functional Fibrinogen- Fibrinogen Level (TEGHEPARINASE) 159.5(L) 278.0 - 581.0 mg/dL 10/25/2024 10:49 PM EDT [facility] Whole Blood (Citrate) 10/25/2024 7:46 PM EDT 10/25/2024 10:15 PM EDT us Ben Blake MD LAB BLOOD ORDERABLES Final Re sult [facility] [address] [place] [address], [facility] documented in this encounter Visit Diagnoses [...] 10/28/2024 12:49 PM EDT 100 mL/hr New 10/28/2024 12:33 PM EDT 250 mLs 100 [...] in sodium chloride 0.9% 100 mL IVPB ([id number]) 1 g, Intravenous, at 200 mL/hr, Every 6 hours scheduled (4 times per day), First dose on Sun10/26/24 at 0630, For 2 days, Dosage may need to be adjusted for renal dysfunction. Full dose is 1g IV q6h Use [id number] Adapter - Mix Thoroughly Before Administration New [...] Once underlying shock sufficiently improved, defined as [id number]-NX-presso r requirement ? 0.2 mcg/kg/min (norepinephrine equivalent) [...] 6:48 PM EDT 1 mg HYDROmorphone (DILAUDID) MARKETING COPYWRITER 6 mg/30 mL syringe *Standard Conc* Intravenous, Continuous, Starting on Sun10/27/24 at 1730, HIGH ALERT MEDICATION New Syringe/Cartridge 10/28/2024 3:59 AM EDT New Syringe/Cartridge 10/27/2024 7:09 PM EDT HYDROmorphone (DILAUDID) MARKETING COPYWRITER 6 mg/30 mL syringe *Standard Conc* Intravenous, [...] in sodium chloride 0.9 % 100 mL [id number] IVPB 50 mg, Intravenous, at 100 mL/hr, Every 24 hours, First dose on Sun10/27/24 at 1400, PROTECT FROM LIGHT FLUSH LINE w/NSS PRIOR TO ADMINISTRATION Use [id number] Adapter - Mix Thoroughly Before Administration Rate/Dose [...] paralyzed: Do not titrate - follow policy [id number]. Start infusion if unable to maintain goal [...] ЮЛИЯ) 0620 (Given - Provider: Yvonne Gale, RN)1017 (Given - Provider: Paulette Flannery, ЮЛИЯ)2119 [...] Paulette Flannery, ЮЛИЯ)1155 (New Bag - Provider: Paultete Flannery, RN) albumin human 25% (COMPLETED) 50 mL, [...] at 0900 0850 (Given - Provider: Paulette Flannery, ЮЛИЯ) eye ointment ophth oint Both Eyes, 2 [...] 1018 (Given - Provider: Paulette Flannery, ЮЛИЯ) 1141 (Given - Provider: Paulette Flannery, ЮЛИЯ) FLUoxetine (PROZAC) capsule 20 mg 20 [...] Gale, ЮЛИЯ) 1149 (Given - Provider: Paulette Flannery, ЮЛИЯ)1531 (Given - Provider: Meka Montalvo, ЮЛИЯ) heparin [...] refused) 1018 (Given - Provider: Paulette Flannery RN)212 (Not Given - Provider: Yvonne Gale RN [...] = 13 mEq; Potassium = 1.1 mEq 2326 (Given - Provider: Yvonne Gale RN) sod [...] Paulette Flannery RN)1434 (Given - Provider: Paulette Flannery, ЮЛИЯ)1844 (Given [...] USE ONLY. 1608 (Given - Provider: Vandana Preciado RT) ondansetron (ZOFRAN) injection 4 mg 4 [...] documented as of this encounter Care Teams Active Directory Administrator Relationship Specialty Start Date End Date Enedina Mcguire NP [address] [place], [place] [id number] PCP - General Internal Medicine 10/05/24 Alicia Pantoja, ЮЛИЯ Txp Post Coordinator Transplant Hepatology 10/28/24 documented as of this encounter
--- OUTSIDE RECORDS SUMMARY | 2024-10-25 22:30 | XMS_ITS | Encounter Summary ---
Author Organization [facility] Address [address] [place] [id number] Care Team Providers Care Market Developer Name Role Phone Enedina Mcguire NP Primary Care Provider [phone] Source Comments This information has been disclosed [...] release of HIV test results or diagnoses. [id number] Reason for Visit * Auth/Cert (Routine) Specialty Diagnoses / Procedures Referred By Shane hernadez Referred To Contact Surgical Intensive Care Diagnoses Liver transplant recipient (CMS-HCC) cirrhosis and CKD Procedures LIVER-KIDNEY TRANSPLANT [facility] SICU [address] [place] [address] Phone: tel: Referral ID Status Reason Start Date Expiration Date Visits Re quested Visits Authorized [id number] 1 1 Encounter Details Date Type Department Care Team (Late st Contact Info) Description 10/25/2024 10:30 PM EDT - 10/26/2024 6:12 AM EDT Surgery [facility] PERIOP [address] [place] [address] Semaj Mcnair III, MD [address] [facility] [address] [place] [address] LIVER TRANSPLANT Surgery Details Date/Time [...] the past 12 months has th e [employer], gas, oil, or water [employer] threatened to shut off services in your [...] MD - 11/02/2024 2:04 PM EDT [facility] Liver Transplant Surgical Service Inpatient Discharge Summary Patient: Blair Gilbert : 1985 CSN: [id number] Date of Admission: 10/25/2024 Date of Discharge: [...] Case IDs Date Procedure Surgeon Location Status [id number] 10/25/24 LIVER TRANSPLANT Semaj Mcnair III, MD OR Comp [id number] 10/27/24 Donor Kidney Transplant , Back Bench [...] EXAM: US ABDOMEN LIMITED EXAM: US DUPLEX KTS-QTHANG-JQFUNEF COMPLETE INDICATION: Post-op liver transplant COMPARISON: None [...] visualized secondary to poor acoustic windows. The [place] right kidney measures 11.6 cm in length. [...] 30 tablet Refills: 0 naloxone 4 mg/actuation [place] Mel Commonly known as: NARCAN Apply 1 spray [...] Your Medications These medications were sent to [facility] NAA Baum - [address] [facility] Mya 105Mal Deya Roque [address] mycophenolate 250 mg capsule tacrolimus 1 MG capsule These medications were sent to [facility] [address] [place] [address] Hours: Sunday - Sunday: 8:00AM - 6:00PM [...] Case IDs Date Procedure Surgeon Location Status [id number] 10/25/24 LIVER TRANSPLANT Semaj Mcnair III, MD OR Comp [id number] 10/27/24 Donor Kidney Transplant , Back Bench [...] discharge. NEURO/PAIN - Patient placed on Dilaudid SHIPPING AND RECEIVING SPECIALIST once extubated, then transitioned to multi-modal pain [...] the following regimen: HDSSI. Patient met w/ critical care educator prior to discharge. HEME - Post-operatively, [...] Patient and family received post-transplant education from food services coordinator as well as medication teaching [...] 11/04/2024 8:40 AM LTRA SURGERY, [facility] LTRA HOX HOX 11/04/2024 10:10 AM LTRA HEPATORENAL HOX LTRA HOX HOX 11/25/2024 9:00 AM NAA Merida [facility] URO MAB MAB 12/02/2024 2:00 PM Bossman Huffman MD [facility] MARIANGEL MAB MAB 02/25/2025 10:50 AM Bruno Gonzalez MD KTSP HOX HOX Kenyetta Hartman, MS-4 [facility] SHAY PLATA MD 11/02/2024 12:50 PM Cosigned [...] up appointments. Diet: Regular diet Drain/Dressing/Wound Care: [place] will be removed in clinic approximately 3-4 [...] kept under 2 gm/day. Please discuss withyour auto club safety program coordinator if you have any question about appropriate dose to take. Other Instructions: Call post-liver transplant clinic with questions [phone] or call [facility] at [phone] and ask for the liver food services coordinator non destructive evaluation specialist if you experience any of the [...] 11/04/2024 8:40 AM LTRA SURGERY, [facility] LTRA HOX HOX 11/04/2024 10:10 AM LTRA HEPATORENAL HOX LTRA HOX HOX 11/25/2024 9:00 AM NAA Merida [facility] URO MAB MAB 12/02/2024 2:00 PM Bossman Huffman MD [facility] MARIANGEL MAB MAB 02/25/2025 10:50 AM [...] AM EDT 10/30/2024 naloxone (NARCAN) 4 mg/actuation [place] Mel Apply 1 spray in one nostril if [...] 200 tablet 11/02/2024 10:20 AM EDT 10/27/2024 apixaban (ELIQUIS) 2.5 mg Tab Take 1 tablet (2.5 mg total) by mouth 2 times a day for 24 days. Last dose 11/26/24 48 tablet 11/02/2024 10:20 AM EDT 11/02/2024 blood sugar diagnostic (GLUCOSE BLOOD) Strp Use to test blood sugar up to 4 times a day. 100 strip 11 11/02/2024 10:20 AM EDT 10/27/2024 5 blood-glucose meter (TRUE METRIX GLUCOSE METER) [facility] Use to test blood sugar up to [...] EDT 10/27/2024 5 lancets (ACCU-CHEK SOFTCLIX LANCETS) [facility] Use to test blood sugar up to [...] tacrolimus and mycophenolate which were dispensed through [facility] per insurance requirements. [...] fair Expected caregiver involvement?: is primary med pbx manager Need for additional education in clinic?: routine reinforcement only Future medications to be obtained from, if known (select one): Tac/MMF to be filled from [facility] Financial concerns [...] Disp-15 mL, R-2 lancets (ACCU-CHEK SOFTCLIX LANCETS) [facility] Use to test blood sugar up to [...] Disp-30 tablet, R-0 naloxone (NARCAN) 4 mg/actuation [place] Mel Apply 1 spray in one nostril if [...] Solid Organ Transplant Clinical Specialist Contact via MessageBunker Secure Chat * Froylan Hendrickson MD - 11/01/2024 8:04 AM EDT Liver Transplant Surgery Progress Note Name: Blair Gilbert CSN: [id number] Date: 11/01/2024 8:06 AM OR Date: 10/25/2024 [...] at 10/31/2024 4:38 PM EDT US Duplex Xwz-Spp-Weplyys Comp Result Date: 10/31/2024 IMPRESSION: RIGHT UPPER [...] 10/25/2024 - 10/27/2024. Plan: Liver transplant recipient ([facility]) [Z94.4] Neuro: - Multimodal pain control: tylenol, [...] PM EDT TXP - Follow Up [facility] Medical Nutrition Therapy Transplant Brief Note Diet [...] very high calorie protein supplement ([facility]) Pertinent Information: Pt seen [...] Based on DBW of 93.1 kg Kcals/day: 6939-9680 (25-30 kcals/kg) Protein g/day: 140-190 (1.5-2.0 g/kg) [...] Dobson - 10/31/2024 2:35 PM EDT [facility] Spiritual Care Volunteer Visit PATIENT NAME: Blair Gilbert ROOM:8025/U80 Yarsanism Affiliation:Sikh Blair Gilbert was visited by a volunteer today. No needs requiring a visit from a staff ironer machine were expressed at that time. Care Provided: Communion, Prayer/ blessing Please page our service at [phone] as needs arise for patient and/or family. Fr Dean Dobson Sikh ironer machine Spiritual Care Dept * Brittany Horne PT - 10/31/2024 1:42 PM EDT Physical Therapy Reason Patient Not Seen Name: Blair Carringtonen : 1985 Attending Physician: Lydia aSnchez MD Admission Diagnosis: Liver transplant recipient (CMS-HCC) [Z94.4] Date: 10/31/2024 Precautions: Precautions: none Reviewed Pertinent hospital course: Yes Unable to see patient due to: Patient politely declining therapy at this time. Will follow-up with patient as medically appropriate and as schedule permits. Time Attempted: 1338 * Shanel Lagunasjoseluis - 10/31/2024 12:14 PM EDT Occupational Therapy [...] issued by OT: Long-handled sponge, Sock aid, Garageman, Other (comment) Equipment issued by OT comment: leg handyman Assessment Assessment: Decreased ADL status, Decreased IADLs, [...] task (Goal met and continued 10/31) Senior Care Goal : Pt will complete bathing assessment and transfer FPC goal to be met in: 2 weeks [...] disease) stage 4, GFR 15-29 ml/min ([facility]) Metabolic acidosis with normal anion gap and bicarbonate losses GERD (gastroesophageal reflux disease) Hypothyroidism Itching Anemia BRBPR (bright red blood per rectum) SBP (spontaneous bacterial peritonitis) ([facility]) C Diff Diarrhea C. difficile diarrhea [...] 0659 10/31/24 07 - 11/01/24 0659 Shift 9998-1796 1898-6699 8244-7076 24 Hour Total 6538-3593 8515-0467 5505-1078 24 Hour Total INTAKE P.O. 240 240 P.O. 240 240 Shift Total(mL/kg) 240(1.9) 240(1.9) OUTPUT Urine(mL/kg/hr) 1850(1.8) 600(0.6) 600(0.6) 3050(1) 350 350 Urine 800 006 526 9110 350 350 Urine Occurrence 2 x 2 [...] with further concerns Lavell Kramer MD 10/31/[phone] * Priti Geiger CNP - 10/31/2024 10:06 AM EDT Liver Transplant Surgery Progress Note Name: Blair Gilbert CSN: [id number] Date: 10/31/2024 10:06 AM OR Date: 10/25/2024 [...] 10/28/24 1109 LACTATE 0.3* Imaging US Duplex Aft-Ylo-Keltjcf Comp Result Date: 10/28/2024 IMPRESSION: ABDOMINAL ULTRASOUND [...] 10/25/2024 - 10/27/2024. Plan: Liver transplant recipient ([facility]) [Z94.4] Neuro: - Multimodal pain control: tylenol, [...] Transplant Nephrology Progress Note Patient: Blair Gilbert [id number] 8025/[id number] Date of Admit: 10/25/2024. 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 Lauren Santos, SAMSON, MAINTENANCE DIRECTOR, FOOD SERVICE ASSOCIATE- Transplant Nephrology [phone] Preferred contact: secure chat The HPI, ROS, [...] Intake/Output last 3 shifts: Date 10/29/24699 - 10/30/2465810/30/24699 - 10/31/24 0659 Shift 2081-1721 5454-3822 8737-9237 24 Hour Total 1708-6777 7234-3920 4732-7482 24 Hour Total INTAKE P.O. 240 240 480 P.O. 240 240 480 IV Piggyback 87.2 87.2 Volume (mL) (micafungin (MYCAMINE) 50 mg in sodium chloride 0.9 % 100 mL Vxuv6Bql IVPB) 87.2 87.2 Shift Total(mL/kg) 240(2) 327.2(2.7) 567.2(4.4) OUTPUT Urine(mL/kg/hr) 600(0.6) 1175(1.2) 450(0.4) 2225(0.7) 550 550 Output (mL) (IUC (Berkowitz) Triple-lumen (3-Way) 18 Fr.) 600 9293 159 0272 550 550 Drains 175 245 100 520 [...] month of prophylaxis Lavell Kramer MD 10/30/[phone] * Priti Geiger CNP - 10/30/2024 10:36 AM EDT Liver Transplant Surgery Progress Note Name: Blair Gilbert CSN: [id number] Date: 10/30/2024 10:37 AM OR Date: 10/25/2024 [...] 1109 LACTATE 0.5 0.3* Imaging US Duplex Rhu-Vzz-Hjpankc Comp Result Date: 10/28/2024 IMPRESSION: ABDOMINAL ULTRASOUND [...] 10/25/2024 - 10/27/2024. Plan: Liver transplant recipient ([facility]) [Z94.4] Neuro: - Multimodal pain control: tylenol, [...] Transplant Nephrology Progress Note Patient: Blair Gilbert [id number] 8025/U8025 Date of Admit: 10/25/2024. 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 Lauren Santos, DNP, MAINTENANCE DIRECTOR, FOOD SERVICE ASSOCIATE- Transplant Nephrology [phone] Preferred contact: secure chat The HPI, ROS, [...] EDT Pt seen, examined, and discussed with CONDENSER OPERATOR on 10/30/2024. reviewed the chart including the [...] PM EDT TXP - Follow Up [facility] Medical Nutrition Therapy Follow-Up Diet Order/Nutrition Support: [...] I/O: +23.3L net volume. Last BM Date: (scow captain). Admit Weight: 270 lb (122.5 kg) Current Weight: (!) 270 lb (122.5 kg) Pertinent Labs: Recent Labs 10/28/24 1449 10/28/24200310/29/24 0507 WBC 4.0 3.9 7.8 HGB 7.5* 8.0* 9.0* HCT 21.4* 23.0* 26.7* PLT 30* 29* 41* Recent Labs 10/28/24 0413 10/28/24 11010/29/24 0507 NA 142 144 144 K 3.5 [...] Based on DBW of 93.1 kg Kcals/day: 7114-4762 (25-30 kcals/kg) Protein g/day: 140-190 (1.5-2.0 g/kg) [...] Dietitian - Solid Organ Transplant Contact via MessageBunker Chat * Anita Crystal, PT - 10/29/2024 2:04 PM EDT Physical Therapy Initial Assessment Name: Blair Gilbert : 1985 Attending Physician: Semaj Mcnair III, MD Admission Diagnosis: Liver transplant recipient (CMS-HCC) [Z94.4] Date: 10/29/2024 Room: [place] [address] [address] Reviewed Pertinent hospital course: Yes Hospital Course [...] functional mobility at: 4/10 or less Senior Care Goal : Pt will ambulate 250' mod [...] transplant recipient (CMS-HCC) [Z94.4] Date: 10/29/2024 Room: [place] [address] [address] Reviewed Pertinent hospital course: Yes Hospital Course [...] Intervention(s): Ambulation/increased activity;Repositioned Therapist reported pain to: pantographer Oxygen Supplemental Oxygen Supplemental Oxygen: None (Room [...] distance ambulation in prep for IADL task Senior Care Goal : Pt will complete bathing assessment and transfer meterman goal to be met in: 2 weeks [...] Active Problem List Diagnosis Decompensated cirrhosis ([facility]) Acute kidney injury superimposed on CKD ([facility] Alcohol use disorder Metabolic encephalopathy Hypertension Other hyperlipidemia Thrombocytopenia ([facility]) Renal mass, left Abdominal pain Hypokalemia CKD (chronic kidney disease) stage 4, GFR 15-29 ml/min ([facility]) Metabolic acidosis with normal anion gap and bicarbonate losses GERD (gastroesophageal reflux disease) Hypothyroidism Itching Anemia BRBPR (bright red blood per rectum) SBP (spontaneous bacterial peritonitis) ([facility]) C Diff Diarrhea C. difficile diarrhea Neck pain with history of cervical spinal surgery * Caron Santos CNP - 10/29/2024 10:30 AM EDT Images from the original note were not included. Transplant Nephrology Progress Note Patient: Blair Gilbert [id number] SICU-28/USIC-28 Date of Admit: 10/25/2024. 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 Lauren Santos, SAMSON, MAINTENANCE DIRECTOR, FOOD SERVICE ASSOCIATE- Transplant Nephrology [phone] Preferred contact: secure chat The HPI, ROS, [...] EDT Pt seen, examined, and discussed with CONDENSER OPERATOR on 10/29/2024. reviewed the chart including the labs and imaging studies. My additional comments below. 39 y.o. 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 S/p SLK 10/25-10/26 Has great UOP 4.2L; 720 drain output Aaron Gonzalez MD, MEd, FASN * Kenyetta Hartman - 10/29/2024 10:07 AM EDT Liver Transplant Surgery Progress Note Name: Blair Gilbert CSN: [id number] Date: 10/29/2024 10:08 AM OR Date: 10/25/2024 [...] LACTATE 0.4* 0.5 0.3* Imaging US Duplex Ibu-Yjl-Esneorf Comp Result Date: 10/28/2024 IMPRESSION: ABDOMINAL ULTRASOUND [...] at 10/27/2024 10:38 AM EDT US Duplex Jue-Vjm-Mdfemfu Comp Result Date: 10/27/2024 IMPRESSION: RIGHT UPPER [...] 10/25/2024 - 10/27/2024. Plan: Liver transplant recipient ([facility]) [Z94.4] Neuro: - Multimodal pain control: tylenol, [...] BID PPX: SQH, SCDs DISPO: floor KENYETTA DEVAN, MS4 [facility] General Surgery 10:08 AM 10/29/2024 [...] last 3 shifts: Date 10/28/24 07 - 10/29/2465810/29/24699 - 10/30/24 0659 Shift 9318-5190 6319-5305 0172-3357 24 Hour Total 3686-9851 4807-8691 8209-9807 24 Hour Total INTAKE P.O. 240 0 [...] IV infusion) 253.9 374.7 775.6 1404.2 Blood 2085 298 2517 Albumin 750 750 Volume (Transfuse RBC Transfusion Rate: Per dept routine) 310 310 Volume (Transfuse RBC Transfusion Rate: Per dept routine) 271 271 IV Piggyback 918.4 117 56 0563.4 Volume (mL) (micafungin (MYCAMINE) 50 mg in sodium chloride 0.9 % 100 mL Qbwa5Bun IVPB) 99.9 99.9 Volume (mL) (albumin human [...] month of prophylaxis Lavell Kramer MD 10/29/[phone] * John Moreno MD - 10/29/2024 6:47 AM EDT SURGICAL ICU PROGRESS NOTE 10/29/2024 6:47 AM Name: Blair Gilbert CSN: [id number] HPI: Blair Gilbert is a 39 y.o. [...] to 4 times a day. DEXCOM G7 FARM REPORTER Misc Use reader as directed. DEXCOM G7 [...] and at bedtime. lancets (ACCU-CHEK SOFTCLIX LANCETS) [facility] Use to test blood sugar up to 4 times a day. methocarbamoL (ROBAXIN) 500 MG tablet Take 1 tablet (500 mg total) by mouth 3 times a day. naloxone (NARCAN) 4 mg/actuation [place] Mel Apply 1 spray in one nostril if [...] 37 37 35 PO2ART 245* 182* 92 VBQ0NWK 22 21* 21* BEART -4.2* -4.8* -4.6* [...] at baseline or with provocation, shows no kibcu-te-kadn atrial level shunt. - Pulmonary arteries: Systolic [...] Home pantoprazole 40mg daily, continue Last BM: GLOBAL COORDINATOR - suppository today Bowel regimen: Miralax today, [...] [facility]DY HEMATOLOGIC Labs: Recent Labs 10/28/24 1449 10/28/24 2004 10/29/24 0507 WBC 4.0 3.9 7.8 HGB 7.5* 8.0* 9.0* HCT 21.4* 23.0* 26.7* MCV 87.6 86.4 87.4 PLT 30* 29* 41* No results for input(s): ANTIXALMWHEP in the last 72 hours. Recent Labs 10/27/24 1713 10/28/24 0413 10/28/24 1109 INR 1.1 1.1 1.1 PROTIME 15.2* 14.6 14.3 No results for input(s): TEGANGLE , TEGKTIME , BAINPENK53 , TEGMAXAMPL , TEGRTIME , CBMZ in [...] in sodium chloride 0.9 % 100 mL Mtks5Dgp IVPB 50 mg Every 24 hours 10/27/2024 -- Admin Instructions: PROTECT FROM LIGHT FLUSH LINE w/NSS PRIOR TO ADMINISTRATION Use Sxjg1Nja Adapter - Mix Thoroughly Before Administration Route: [...] instability DC today Arterial Line? R radial Kermit- DC today Urinary Catheter? Berkowitz - Reason: [...] BID Continuous Infusions: HYDROmorphone 6 mg/30 mL SHIPPING AND RECEIVING SPECIALIST norepinephrine 4 mcg/min (10/27/24 2318) sodium chloride [...] 3 shifts: Date 10/27/24699 - 10/28/2465810/28/24699 - 10/29/24 0659 Shift 5144-4808 7095-1339 5209-6422 24 Hour Total 9624-1054 4338-1672 4858-9259 24 Hour Total INTAKE P.O. 0 120 [...] in sodium chloride 0.9 % 100 mL Mwgy8Lyy IVPB) 100 100 Volume (mL) (albumin human 5%) 126 126 Volume (mL) (potassium chloride (KCl)/Sterile water 50 mL 20 mEq/50 mL IVPB 20 mEq) 100 100 Volume (mL) (AMPicillin 1 g in sodium chloride 0.9% 100 mL IVPB (Etxl8Oli)) 100.1 57 42.9 200 Volume (mL) (mycophenolate (CELLCEPT) 500 mg in dextrose 5% in water (D5W) 50 mL IVPB) 50 5.3 55.3 Shift Total(mL/kg) 2079.3(17) 1161(9.5) 787.3(6.4) 4027.6(32.9) OUTPUT Urine(mL/kg/hr) 2195(2.2) 1000(1) 900(0.9) 4095(1.4) 490 490 Urine 360 360 Output (mL) (IUC (Berkowitz) Triple-lumen (3-Way) 18 Fr.) 1835 7245 763 3514 490 490 Emesis/NG output 50 50 Drainage [...] month of prophylaxis Lavell Kramer MD 10/28/[phone] * Caron Santos CNP - 10/28/2024 9:00 AM EDT Images from the original note were not included. Transplant Nephrology Progress Note Patient: Blair Gilbert [id number] SICU-28/USIC-28 Date of Admit: 10/25/2024. 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 Lauren Santos, DNP, MAINTENANCE DIRECTOR, FOOD SERVICE ASSOCIATE- Transplant Nephrology [phone] Preferred contact: secure chat The HPI, ROS, [...] EDT Pt seen, examined, and discussed with CONDENSER OPERATOR on 10/28/2024. reviewed the chart including the labs and imaging studies. My additional comments below. 39 y.o. 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 S/p SLK 10/25-10/26 Has great UOP 4.2L Aaron Gonzalez MD, MEd, FASN * Shay Plata MD - 10/28/2024 7:41 AM EDT Liver Transplant Surgery Progress Note Name: Blair Gilbert CSN: [id number] Date: 10/28/2024 11:05 AM OR Date: 10/25/2024 - 10/27/2024 Subjective: 1 Day Post-Op Received one unit pRBCs overnight On low dose levo this morning Increasing tachycardia Reports worsening pain, on SHIPPING AND RECEIVING SPECIALIST Tolerated sips of clears No nausea/vomiting, no [...] Oral BID Continuous: HYDROmorphone 6 mg/30 mL SHIPPING AND RECEIVING SPECIALIST norepinephrine Stopped (10/28/24 0637) sodium chloride 0.9 [...] at 10/27/2024 10:38 AM EDT US Duplex Las-Ngw-Gqpnwyy Comp Result Date: 10/27/2024 IMPRESSION: RIGHT UPPER [...] 10/25/2024 - 10/27/2024. Plan: Liver transplant recipient ([facility]) [Z94.4] Neuro: - Multimodal pain control: dilaudid SHIPPING AND RECEIVING SPECIALIST, tylenol, robaxin. PRN dilaudid for breakthrough CV: [...] DISPO: SICU SHAY PLATA MD, MS4 [facility] Surgery 11:05 AM 10/28/2024 Cosigned by Lydia [...] 10/28/2024 6:17 AM Name: Blair Gilbert CSN: [id number] HPI: Blair Gilbert is a 39 y.o. [...] to 4 times a day. DEXCOM G7 FARM REPORTER Misc Use reader as directed. DEXCOM G7 [...] times a day. naloxone (NARCAN) 4 mg/actuation [place] Mel Apply 1 spray in one nostril if [...] Oral BID Continuous: HYDROmorphone 6 mg/30 mL SHIPPING AND RECEIVING SPECIALIST insulin regular in 0.9 % sodium chloride [...] 37 37 35 PO2ART 245* 182* 92 HVT1UVW 22 21* 21* BEART -4.2* -4.8* -4.6* [...] at baseline or with provocation, shows no svfgl-br-fxiu atrial level shunt. - Pulmonary arteries: Systolic [...] while intubated,convert to PO today Last BM: GLOBAL COORDINATOR Bowel regimen: Miralax today, hold senna til [...] ml IV Fluids: HYDROmorphone 6 mg/30 mL SHIPPING AND RECEIVING SPECIALIST insulin regular in 0.9 % sodium chloride, Last Rate: 2.5 Units/hr (10/27/241899) norepinephrine, Last Rate: 4 mcg/min (10/27/248) sodium chloride 0.45% (1/2 NS), Last Rate: Stopped (10/27/24 1301) sodium chloride 0.9 %, Last Rate: Stopped (10/27/24 0252) sodium chloride 0.9 %, Last Rate: 100 mL/hr (10/27/24 190) sodium chloride 0.9 % sodium chloride 0.9 [...] [facility]ATOLOG[facility] Labs: Recent Labs 10/27/24171210/28/24 0005 10/28/24412 WBC 4.9 4.9 4.5 HGB 7.4* 6.7* 7.3* HCT 21.4* 19.2* 21.0* MCV 87.6 87.8 87.8 PLT 47* 45* 38* No results for input(s): ANTIXALMWHEP in the last 72 hours. Recent Labs 10/27/24 0816 10/27/24171210/28/24412 INR 1.2* 1.1 1.1 PROTIME 16.2* 15.2* 14.6 No results for input(s): TEGANGLE , TEGKTIME , CPXEOAMG63 , TEGMAXAMPL , TEGRTIME , CBMZ in [...] in sodium chloride 0.9% 100 mL IVPB (Shyz3Ocn) (Completed) 1 g Every 6 hours scheduled 10/26/2024 10/28/2024 Admin Instructions: Dosage may need to be adjusted for renal dysfunction. Full dose is 1g IV q6h Use Mntr6Tgf Adapter - Mix Thoroughly Before Administration Notes to Pharmacy: On order editor estimated creatinine clearance is 35.9 mL/min (A) [...] in sodium chloride 0.9 % 100 mL Rizj3Wht IVPB 50 mg Every 24 hours 10/27/2024 -- Admin Instructions: PROTECT FROM LIGHT FLUSH LINE w/NSS PRIOR TO ADMINISTRATION Use Tole0Zqk Adapter - Mix Thoroughly Before Administration Route: [...] Risk Score of 10 and [facility] HOSPITAL transplant protocol, I recommend discharging on [...] Solid Organ Transplant Clinical Specialist Contact via MessageBunker Secure Chat Preferred O. [phone] * Chinedu Almeida RRT - 10/27/2024 1:10 [...] PCO2 37 10/27/2024 PO2ART 245 (H) 10/27/2024 [id number] 22 10/27/2024 BEART -4.2 (L) 10/27/2024 KRU7KGZ 96.5 10/27/2024 [id number] 100 10/27/2024 Based on this SBT assessment [...] Surgery Progress Note Name: Blair Gilbert CSN: [id number] Date: 10/27/2024 11:40 AM OR Date: 10/25/2024 - 10/27/2024 Subjective: * Day of Surgery * Remains intubated in SICU Sedated but appropriately nods to questions No acute distress Objective: BP 100/48 Pulse 89 Temp 99 ??F (37.2 ??C) (Elton) Resp 9 Ht 6' 4 (1.93 m) [...] 1.2* PROTIME 20.3* 18.6* 16.2* Recent Labs 10/26/241641 10/16/25 0013 10/27/24 0800 NA 142 141 142 [...] at 10/27/2024 10:38 AM EDT US Duplex Ihb-Vsg-Sghckla Comp Result Date: 10/27/2024 IMPRESSION: RIGHT UPPER [...] 10/27/2024. Problem List[1] Plan: Liver transplant recipient ([facility]) [Z94.4] Neuro: - Propofol/fentanyl CV: - Wean [...] SQH, SCDs DISPO: SICU KENYETTA HARTMAN, MS4 [facility] General Surgery 11:40 AM 10/27/2024 [1] Patient Active Problem List Diagnosis Decompensated cirrhosis ([facility]) Acute kidney injury superimposed on CKD ([facility]) Alcohol use disorder Metabolic encephalopathy Hypertension Other hyperlipidemia Thrombocytopenia ([facility]) Renal mass, left Abdominal pain Hypokalemia CKD (chronic kidney disease) stage 4, GFR 15-29 ml/min ([facility]) Metabolic acidosis with normal anion gap and bicarbonate losses GERD (gastroesophageal reflux disease) Hypothyroidism Itching Anemia BRBPR (bright red blood per rectum) SBP (spontaneous bacterial peritonitis) ([facility]) C Diff Diarrhea C. difficile diarrhea [...] NOTE 10/27/2024 7:16 AM Name: Blair Gilbert [facility]: [id number] HPI: Blair Gilbert is a 39 y.o. [...] times a day. naloxone (NARCAN) 4 mg/actuation [place] Mel Apply 1 spray in one nostril if [...] 0.9 % sodium chloride 2.5 Units/hr (10/27/24 9538) norepinephrine 10 mcg/min (10/27/24 0706) propofol 30 mcg/kg/min (10/27/24 0713) sodium chloride 0.9 % Stopped (10/27/24251) sodium chloride 0.9 % Stopped (10/27/24251) sodium [...] PCO2: 37 (10/27/2412) PO2: (!) 137 (10/27/24 001) HCO3: (!) 20 (10/27/2412) Base Excess: (!) -6.4 (10/27/2412) SaO2: 100 (10/27/24 001) Recent Labs 10/26/24 0610 10/26/24 1048 10/27/243 PHART 7.27* 7.37 7.32* PCO2 47* 36 37 PO2ART 127* 91 137* WHA1KVK 21* 22 20* BEART -5.4* -3.9* -6.4* [...] at baseline or with provocation, shows no exjan-bf-grln atrial level shunt. - Pulmonary arteries: Systolic [...] levo sub 10. - Product given overnight / to teg: see heme - Also given [...] IV pantoprazole while intubated, NPO Last BM: GLOBAL COORDINATOR Bowel regimen: Senna/Miralax when able Nausea: Zofran [...] 10/27/2024 0715 Gross per 24 hour Intake 12958.82 ml Output 7060 ml Net 6224.82 ml [...] results for input(s): TEGANGLE , TEGKTIME , FZLARRIL44 , TEGMAXAMPL , TEGRTIME , CBMZ in [...] in sodium chloride 0.9% 100 mL IVPB (Vdgn9Ggf) 1 g Every 6 hours scheduled 6/ Admin Instructions: Dosage may need to be adjusted for renal dysfunction. Full dose is 1g IV q6h Use Swgu4Bzi Adapter - Mix Thoroughly Before Administration Notes to Pharmacy: On order editor estimated creatinine clearance is 35.9 mL/min (A) (based on SCr of 3.87 mg/dL (H)). Route: Intravenous Linked Group 1: Placed in And Linked Group cefTRIAXone (ROCEPHIN) 2 g in sodium chloride 0.9 % 100 mL Mahs2Icn Continuous - One Step Medications Only 10/27/2024 [...] Site Days Peripheral IV 10/25/24 Anterior;Distal;Left Antecubital 06/14/25 2130 Antecubital 1 Peripheral IV 10/26/24 Anterior;Left [...] Solid Organ Transplant Clinical Specialist Contact via [employer] Preferred * Simeon Guzman RN - 10/27/2024 [...] 10/26/2024 0725 Gross per 24 hour Intake 60136.32 ml Output 2075 ml Net 59013.32 ml Consitutional: Intubated/sedated HEENT: Mucous membranes moist [...] Prophylaxis: SCDs, SQH CODE: Full Code DISPO: MAURA Best MD General Surgery Resident Cosigned by [...] History and Physical Patient: Blair Gilbert CSN: [id number] History CC: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 naloxone (NARCAN) 4 mg/actuation [place] Mel Apply 1 spray in one nostril if [...] Strain: Low Risk (07/09/2024) Received from [facility] Overall Financial Resource Strain (CARDIA) Difficulty of [...] No Physical Activity: Unknown (07/14/2024) Received from [facility] Exercise Vital Sign Days of Exercise per Week: Patient unable to answer Minutes of Exercise per Session: Not on file Stress: Patient Unable To Answer (07/14/2024) Received from [facility] [place] [employer]ational [employer] - Occupational Stress Questionnaire Feeling of Stress : Patient unable to answer Social Connections: Patient Unable To Answer (07/14/2024) Received from [facility] Social Connection and Isolation Panel [NHANES] Frequency of Communication with Friends and Family: Patient unable to answer Frequency of Social Gatherings with Friends and Family: Patient unable to answer Attends Yarsanism Services: Patient unable to answer Active Member [...] -- 5.4 ALBUMIN 3.2* 3.1* Invalid input(s): [facility] Other labs: Imaging Studies No results found. [...] and will be admitted to SICU post-op. LEADNRA OG MD [facility] Surgery Liver Transplant Pager: [phone] 8:24 PM 10/25/2024 Cosigned by Semaj [...] Name: Blair Gilbert Date: 1985 Billing #: [id number] Date of Procedure: 10/25/2024 Diagnosis: End Stage Renal Disease Procedure: 1. Donor Kidney Transplant 2. Back Bench Preparation Donor Kidney 3. Baseline Kidney transplant biopsy 4. Insertion of Indwelling Stent 5. Removal of Perihepatic packing Surgeons * Flaquito Ba MD Joy Loader MD Shayan Findings: Low Hockey stick incision [...] donor was ABO O and UNOS ID [id number], Match Run [id number] ([facility]). This donor was a Donor after [...] was then wanded with the lap detection server service assistant. The incision was ex tented 2 [...] and closure. Flaquito Ba MD Transplant Surgeon computer software engineer * Flaquito Ba MD - 10/27/2024 6:15 AM EDT TRANSPLANT KIDNEY with bile duct reconstruction Brief Op Note Blair Gilbert 10/27/2024 Pre-op Diagnosis: Acute kidney injury superimposed on CKD (CMS-HCC) [N17.9, N18.9] Post-op Diagnosis: same Procedure(s): TRANSPLANT KIDNEY Surgeon(s): MD Semaj Washington III, MD Anesthesia: General Endotracheal Staff: Gear And Spline Grinder: Chinedu Quinn RN Scrub Person: ST Angela Fellow: Kemar Sahni MD 2nd Gear And Spline Grinder: Marty Clark RN 3rd Gear And Spline Grinder: Candis Mcdaniel RN FINDINGS Berkowitz 3 day Drains: Intraabdominal (perihepatic) UNOS ID [id number], Match Run [id number] Kid WIT 27 min Kid CIT 33 [...] (Berkowitz) Triple-lumen (3-Way) 18 Fr. (Active) Status Smoot Drainage 10/26/241999 Collection Container Standard drainage bag [...] Washington III, MD Anesthesia: General Endotracheal Staff: Gear And Spline Grinder: Chinedu Quinn RN Relief Gear And Spline Grinder: Michela Amos RN Relief Scrub: Stephani Blake RN Scrub Person: ST Angela Fellow: Kemar Sahni MD 2nd Gear And Spline Grinder: Marty Clark RN 3rd Gear And Spline Grinder: Candis Mcdaniel RN Estimated Blood Loss: 300 [...] Status Clean;Dry;Intact 10/26/241999 Output (mL) 150 mL 10/26/242199 Drainage Appearance Bile;Brown 10/26/241999 Number of days: 1 Drain Abdomen Inferior;Right (Active) Number of days: 0 IUC (Berkowitz) Triple-lumen (3-Way) 18 Fr. (Active) Status Smoot Drainage 10/26/241999 Collection Container Standard drainage bag 10/26/241999 Securement Method StatLock 10/26/241999 Indication for IUC continuation Require accurate, continuous UOP measuring in critically ill 10/26/241999 Output (mL) 100 mL 10/27/24152 Number of days: 2 Ureteral Drain/Stent Left ureter 6 Fr. (Active) Number of days: 0 [REMOVED] NG/OG Tube Nasogastric Left nostril (Removed) Number of days: 3 [REMOVED] Drain 1 Abdomen Right;Superior (Removed) Site Description Unable to view 10/26/241999 Drain Type Bulb 10/26/241999 Drain Status Bulb suction 10/26/241999 Dressing Status Clean;Dry;Intact 10/26/241999 Output (mL) 125 mL 10/27/24152 Drainage Appearance Serosanguineous 10/26/241999 Number of days: [REMOVED] Rectal Pouch (Removed) Number of days: 0 [REMOVED] Rectal Tube With balloon (Removed) Number of days: 24 [REMOVED] IUC (Berkowitz) Temperature probe 16 Fr. (Removed) Number of days: 5 End to end choledochocholedochostomy Berkowitz 3 day Drains: 2 Intraabdominal (perihepatic) UNOS ID [id number], Match Run [id number] Donor: young DCD NRP Kid WIT 27 [...] - 10/27/2024 12:00 AM EDT [facility] PATIENT NAME: BLAIR GILBERT DATE OF : 1985 CSN: [id number] PHYSICIAN: Semaj Mcnair III, MD ADMIT DATE: 10/25/2024 DICTATED BY: Semaj Mcnair III, MD SURGERY DATE: 10/27/2024 OPERATIVE REPORT SURGEON: Semaj Mcnair III, MD ANESTHESIOLOGIST ATTENDING SURGEON: Kemar Sahni MD. PREOPERATIVE DIAGNOSIS: Open [...] were made hemostatic with the argon beam airfield defence guard. We assessed the flows of the portal [...] a mucocele formation. We then performed a ifgj-ob-oewo choledochocholedochostomy in an end to end fashion [...] small umbilicalhernia that was closed with a ocvalu-en-wpjnz 0 PDS suture. At this point, we [...] complications. SEMAJ MCNAIR III, MD RCQ/AQ JOB#: [id number] * Semaj Mcnair III, MD - 10/26/2024 7:00 AM EDT Patient Name: Blair Gilbert Date: 1985 Billing #: [id number] Date of Procedure: 10/25/2024 - 10/26/2024 Diagnosis: Chronic Hepatic Failure without coma Procedure: 1. Orthotopic Liver Transplant 2. Back Bench Preparation Donor Liver 3. Temporary portocaval shunt 4. Perihepatic packing for control of hemorrhage 5. Placement of external choledochal stent 6. Temporary abdominal closure Attending surgeons: Semaj Mcnair III, MD Joy Loader Surgeon(s): Sveta Judge MD Findings: Whole organ placed in piggyback fashion with suprahepatic cava of donor to common orifice of all three hepatic veins for IVC anastomosis. Donor main portal vein to recipient main portal vein. Donor common hepatic artery to recipient right hepatic artery. Temporary abdominal with perihepatic packingfor control of hemorrhage. Externalization of bile duct with 8 Citizen Of [place] pediatric feeding tube. Portal Flow Modulation No [...] This donor was ABO O and UNOSID [id number], Match Run [id number]. This was a 42-year-old donation after circulatory [...] After completion of the outflow anastomosis, a [place] clamp was placed across the donor suprahepatic [...] artery flows were then measured with the Pixelapse device. The portal flow was 3.4 L/min [...] temporary abdominal closure. An 8 Citizen Of [place] pediatric feeding tube was brought through the [...] Sveta Alves III, MD Anesthesia: General Staff: Gear And Spline Grinder: Mak Maher RN; Marty Clark RN Scrub Person: ST Angela Resident: Thuy Leon MD production solderer: Jose Daniel Arana, RONALDO Estimated Blood Loss: 19 L Specimens: recipient [...] Number of days: 5 Surgery Information: -UNOS#: [id number] -ABO: O to O -Recipient: SLK candidate [...] 1:19 PM EDTAssociated Order(s): IP CONSULT TO PURCHASING INTERN [facility] Transplant Discharge Education Note Assessment: Received referral [...] Gomez, MSN, RN, NPD- Diabetes Education Office [phone] Schedule: M-F 8:00am-4:30pm * Ben Weiss, DMITRY - 10/27/2024 4:06 PM EDTAssociated Order(s): IP CONSULT TO NUTRITION SERVICES; IP CONSULT TO NUTRITION SERVICES TXP - Initial [facility] Medical Nutrition Therapy Reason(s) for Completion: Physician/Nursing [...] I/O: +23.2L net volume. Last BM Date: (GLOBAL COORDINATOR). Admit Weight: 270 lb (122.5 kg) Current [...] Based on DBW of 93.1 kg Kcals/day: 0467-3534 (25-30 kcals/kg) Protein g/day: 140-190 (1.5-2.0 g/kg) [...] Dietitian - Solid Organ Transplant Contact via MessageBunker Chat * Lavell Kramer MD - 10/27/2024 11:09 AM EDTAssociated Order(s): INPATIENT CONSULT TO TRANSPLANT INFECTIOUS DISEASES Infectious Disease Consultation Patient: Blair Gilbert CSN: [id number] Assessment & Plan 39 y.o. M s/p [...] blood cx's if febrile Lavell Kramer MD [phone] Chief Complaint Long Qtc History of Present [...] Strain: Low Risk (07/09/2024) Received from [facility] Overall Financial Resource Strain (CARDIA) Difficulty of [...] No Physical Activity: Unknown (07/14/2024) Received from [facility] Exercise Vital Sign Days of Exercise per Week: Patient unable to answer Minutes of Exercise per Session: Not on file Stress: Patient Unable To Answer (07/14/2024) Received from [facility] [place] [facility] Occupational Health - Occupational Stress Questionnaire Feeling of Stress : Patient unable to answer Social Connections: Patient Unable To Answer (07/14/2024) Received from [facility] Social Connection and Isolation Panel [NHANES] Frequency of Communication with Friends and Family: Patient unable to answer Frequency of Social Gatherings with Friends and Family: Patient unable to answer Attends Yarsanism Services: Patient unable to answer Active Member [...] 025) sodium chloride 0.9 % Stopped (10/27/24 0252) sodium chloride 0.9 % Stopped (10/27/24 0901) vasopressin 0.03 Units/min (10/27/24 1000) PRN:dextrose 10% in water OR dextrose 10% in water, fentanyl (SUBLIMAZE) IV infusion AND fentaNYL, glucose, HYDROmorphone OR HYDROmorphone, sodium chloride 0.45% (12 NS) Vital Signs Temp: [98.2 ??F (36.8 [...] Kramer MD 10/27/2024, 10:56 AM * Caron Santos, EZEKIEL - 10/27/2024 11:00 AM EDTAssociated Order(s): IP [...] to 4 times a day. DEXCOM G7 FARM REPORTER Misc Use reader as directed. DEXCOM G7 [...] times a day. naloxone (NARCAN) 4 mg/actuation [place] Mel Apply 1 spray in one nostril if [...] CKD IIIb/IV: - Presumed s/t HRS - Press Pipe Inspector: Yovanny Curran at [facility] Allograft Function: S/p SLK 10/25- [...] 10/27/2024 1500 Gross per 24 hour Intake 08458.28 ml Output 5950 ml Net 6403.28 ml Heme/Anemia: WBC: 5.8 Goal HgB 10-12 mg/dL Hgb: 7.5 Plt 50 Iron: 128 on 10/25/2024 Ferritin 623.2 on 10/25/2024 TIBC: SEE COMMENT on 10/25/2024 % Iron Saturation: SEE COMMENT on 10/25/2024 AuxtcaqP74: No results found for requested labs within [...] - Monitor renal function. No indications for LOCOMOTIVE SUPERVISOR. Good UOP - Noted KT US [...] preliminary until attending attestation. Lauren Santos, DNP, MAINTENANCE DIRECTOR, FOOD SERVICE ASSOCIATE- Transplant Nephrology [phone] Preferred contact: secure chat [1] Allergies Allergen [...] Gonzalez MD, MEd, FASN * Marcellus Hebert, LEATHER GOODS MAKER, PLATE DRILLER - 10/27/2024 10:21 AM EDT HEALTH Care Management/Social Work Assessment Patient Information Patient Name: Blair Gilbert Hospital Day: 2 Inpatient/Observation: Inpatient Admit Date: 10/25/2024 Admission Diagnosis: Liver transplant recipient (CMS-HCC) [Z94.4] Attending provider: Semaj Mcnair III, MD PCP: Enedina Mcguire NP Home Pharmacy: [facility] [address] [place] [address] [facility] [address] [facility] [address] Issues related to obtaining medications: N/A Payor Information Medical Insurance Coverage: Payor: [facility] / Plan: [facility] GLOBAL / Product Type: *No [...] History: 12 weeks of CD Treatement at [facility] Do you need Substance Abuse [...] No Status & Connection to [facility] Services [place] Status & Connection to VA Services Are you a ?: No Support Systems Emergency contact: Extended Emergency Contact Information Primary Emergency Contact: JustinIna (next of kin) Mobile Relation: Spouse Secondary [...] resides with his spouse at their one story home in [place]. 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 Patient's LNOK:Spouse, Abdiaziz Gilbert, Patient has no current or past history of suicidal/homicidal ideation. Patient has a history of mental health diagnoses, PTSD and Generalized Anxiety Disorder. Patient is connected with TransplantPsychiatrist and prescribed Prozac. Patient has a history of alcohol use and has completed 12 weeksof CD Treatment at [facility]. Spouse explained that he will complete a 6 month virtual program post transplant but could not recall the name of the program. Patient has no current tobacco use. No previous need or recommendation for home health care services and no previous placements at [facility] facility and/or inpatient rehab program. Patient has [...] as appropriate. NUBIA Escalera, RONALDO Phone Number: [phone] * John Moreno MD - 10/26/2024 3:41 AM EDT SURGICAL ICU CONSULT NOTE 10/26/2024 3:41 AM Name: Blair Gilbert CSN: [id number] HPI: Blair Gilbert is a 39 y.o. [...] at 9:00 PM naloxone (NARCAN) 4 mg/actuation [place] Mel Apply 1 spray in one nostril if [...] % 250 mL infusion 2.5 mcg/min (10/26/24 0336) insulin regular in 0.9 % sodium chloride norepinephrine 18 mcg/min (10/26/24 4002) vasopressin 0.04 Units/min (10/26/24 0150) PRN Meds: heparin (porcine) 5,000 unit/mL 10,000 [...] input(s): PHART , PCO2 , PO2ART , WRZ1IRO , BEART in the last 72 hours. [...] at baseline or with provocation, shows no rcbbs-tz-htuy atrial level shunt. - Pulmonary arteries: Systolic [...] IV pantoprazole while intubated, NPO Last BM: GLOBAL COORDINATOR Bowel regimen: Senna/Miralax when able Nausea: Zofran PRN FLUID/ELECTROLYTES Recent Labs 10/25/242216 NA 137 K 2.1* CL 100 CO2 20* BUN 74* CREATININE 3.87* CALCIUM 9.3 PHOS 5.9* GLUCOSE 114* Intake/Output Summary (Last 24 hours) at 10/26/2024 0341 Last data filed at 10/26/2024 0326 Gross per 24 hour Intake 73145 ml Output 675 ml Net 15383 ml IV Fluids: EPINEPHrine (ADRENALIN) 10 mg in sodium chloride 0.9 % 250 mL infusion, Last Rate: 2.5 mcg/min (10/26/24 0339) insulin regular in 0.9 % sodium chloride norepinephrine, Last Rate: 18 mcg/min (10/26/24312) vasopressin, Last Rate: 0.04 Units/min (10/26/24 024) A/P: - Goal UOP >0.5 cc/kg/hr - [...] results for input(s): TEGANGLE , TEGKTIME , HLYGGVLV97 , TEGMAXAMPL , TEGRTIME , CBMZ in [...] in sodium chloride 0.9% 100 mL IVPB (Wlmt4Cnn) 2 g Every 6 hours 10/26/2024 -- Admin Instructions: Use Xgwe9Zff Adapter - Mix Thoroughly Before Administration Notes to Pharmacy: On order editor estimated creatinine clearance is 35.9 mL/min (A) (based on SCr of 3.87 mg/dL (H)). Route: Intravenous AMPicillin 2 g in sodium chloride 0.9% 100 mL IVPB (Hplr7Wts) 2 g Once 10/26/2024 -- Admin Instructions: Use Rogf1Cib Adapter - Mix Thoroughly Before Administration Notes to Pharmacy: On order editor estimated creatinine clearance is 35.9 mL/min (A) (based on SCr of 3.87 mg/dL (H)). Route: Intravenous cefTRIAXone (ROCEPHIN) 2 g in sodium chloride 0.9 % 100 mL Fbgt0Kpy (Completed) 2 g Once 10/25/2024 10/26/2024 Admin Instructions: Use Bnmt4Qyb Adapter - Mix Thoroughly Before Administration Route: [...] Days Peripheral IV 10/25/24 Anterior;Distal;Left Upper arm 10/25/24 2130 Upper arm less than 1 Arterial Line [...] 47 (H) 10/26/2024 PO2ART 127 (H) 10/26/2024 OSB7MSA 21 (L) 10/26/2024 BEART -5.4 (L) 10/26/2024 DYZ5YWM 94.6 (L) 10/26/2024 J0CXMWAG 98 10/26/2024 P:F ratio = 363 CARDIOVASCULAR: [...] Care Surgery, and Surgical Critical Care [facility] Academic Office [phone] For Transfers, call [phone] documented in this encounter Nursing Notes * [...] Progressing * Care Coordination - NUBIA Escalera, PLATE DRILLER - 10/31/2024 11:34 AM EDT [facility] Case Management/Social Work Department Progress [...] Home Pharmacy: [facility] [address] [place] [address] [address] [facility] [address] [facility] [address] [facility] [address] - [address] [facility] [place] [id number] Medical Insurance Coverage: Payor: [employer] / Plan: [employer] / Product Type: *No Product type* / Other Pertinent Information SW received report from Transplant medical team. SW completed chart review. Per report patient is not medically ready to discharge. Patient recommended for home PT/OT and 2x weekly labs. SW followed up on [facility] referrals and submitted a few more [facility] referrals. Update: MEREDITH made nurse educator aware that there were no accepting [facility] agencies([facility], [facility], [facility]) and patient would need to outpatient for PT/OT and labs. Discharge Plan Anticipated discharge plan: Home with HHC vs Home with outpatient Anticipated discharge date: 11/01 CM/SW will continue to follow and remain available for discharge planning needs. NUBIA Escalera, RONALDO Cell [phone] * Plan of Care - Paulette Flannery [...] Citlaly Nova - 10/29/2024 1:53 PM EDT [facility] Case Management/Social Work Department Progress [...] Home Pharmacy: [facility] [address], [facility] [address] [place] [id number] [address] [address] [facility] [address] [facility] [address] [facility] [place] - [address] [place] [id number] Medical Insurance Coverage: Payor: [facility] / Plan: [employer]X [...] SW submitted blanket HHC referral to [facility] [place], [facility] [place], [facility], and [facility]. Awaiting responses. SW to followpending clearance home [...] available for discharge planning needs. NUBIA Rhodes, PLATE DRILLER Inpatient Contract Project Manager/Care Coordination [phone] * Plan of Care - Soco Yap [...] Escalera LSW - 10/28/2024 2:29 PM EDT [facility] Case Management/Social Work Department Progress Note Patient Information Patient Name: Blair Gilbert Hospital day: 3 Inpatient/Observation: Inpatient Level of Care: Transplant Admit date: 10/25/2024 Admission diagnosis: Liver transplant recipient (CMS-HCC) [Z94.4] PMH: has a past medical history of Alcoholic cirrhosis of liver (CMS-HCC), Esophageal varices (CMS-HCC), Hepatorenal syndrome ([facility]), Hypertension, Other hyperlipidemia (07/26/2024), Renal cell carcinoma ([facility]), Thrombocytopenia ([facility]), and Thyroid disease. PCP: Enedina Mcguire NP Home Pharmacy: [facility] [address] [place] [address] [place] [address] [address] [facility] [address] [facility] [address] [facility] [place] - [address] [facility] [id number] Medical Insurance Coverage: Payor: [facility] / Plan: [employer] / [...] discharge planning needs. NUBIA Escalera, RONALDO Cell [phone] * Plan of Care - Elaine Carrillo [...] at all times. Outcome: Completed Problem: Non-violent, wld-dinz-zadqlmwbcjp restraints Description: Less restrictive alternative interventions will [...] of medical procedures, or protection of medical grade shoemaker access. Outcome: Completed * Plan of Care [...] foods as appropriate. Outcome: Progressing Problem: Non-violent, auk-jkwb-eugpqmbbfns restraints Description: Less restrictive alternative interventions will [...] of medical procedures, or protection of medical grade shoemaker access. Outcome: Progressing * Plan of Care - Shanel Shen RN - 10/27/2024 9:00 AM EDT Problem: Non-violent, aig-vkmh-otauccylrlb restraints Description: Less restrictive alternative interventions will [...] - 10/26/2024 7:41 PM EDT Problem: Non-violent, bap-ztyi-dyquzzeyaay restraints Description: Less restrictive alternative interventions will [...] of medical procedures, or protection of medical grade shoemaker access. Outcome: Not Progressing Patient in bilateral [...] restraint flowsheet for further documentation. Problem: Non-violent, rjf-zbhb-uefiftnokrk restraints Description: Less restrictive alternative interventions will [...] of medical procedures, or protection of medical grade shoemaker access. Outcome: Progressing * Plan of Care [...] Routine Acute kidney injury superimposed on CKD ([facility]) Release Upon Ordering for 1 Occurrences starting 10/27/2024 Fungus culture Microbiology Routine Acute kidney injury superimposed on CKD ([facility]) Release Upon Ordering for 1 Occurrences starting 10/27/2024 Routine Culture plus Stain Microbiology Routine Acute kidney injury superimposed on CKD ([facility] Release Upon Ordering for 1 Occurrences starting 10/27/2024 Surgical Pathology Exam Pathology and Cytology Routine Acute kidney injury superimposed on CKD ([facility]) Release Upon Ordering for 1 Occurrences starting [...] Routine 10/31/2024 11:59 AM EDT US DUPLEX [id number] COMPLETE Routine 10/31/2024 10:19 AM EDT US [...] Routine 10/28/2024 5:31 PM EDT US DUPLEX [id number] COMPLETE STAT 10/28/2024 4:23 PM EDT US [...] Routine 10/27/2024 10:00 AM EDT US DUPLEX [id number] COMPLETE STAT 10/27/2024 9:51 AM EDT US ABDOMEN LIMITED STAT 10/27/2024 9: 51 AM EDT US RENAL TRANSPLANT STAT 10/27/2024 9 :51 AM EDT CARISA RHYTHM STRIP - SCAN 10/28/19 25 9:25 AM EDT POC GLU MONITORING DEVICE [...] Acute kidney injury superimposed on CKD (CMS-HCC) ROUTINE CULTURE PLUS STAIN Routine 10/27/2024 2:15 [...] 10/25/2024 11:08 PM EDT LIVER-KIDNEY TRANSPLANT 10/26/19 10:53 PM EDT Alcoholic cirrhosis of liver [...] 100 mg/dL 11/02/2024 5:45 PM EDT [facility] Blood 11/02/2024 5:44 PM EDT 11/02/2024 5:45 PM EDT us Semaj Mcnair III, MD POINT OF CARE TEST ORDERABLES Final Result [facility] [address] * (ABNORMAL) POC Glucose Monitoring Device (11/02/2024 3:34 PM EDT) POC Glucose Monitoring Device 208(H) 70 - 100 mg/dL 11/02/2024 3:35 PM EDT [facility] Blood 11/02/2024 3:34 PM EDT 11/02/2024 3:35 PM EDT Semaj Mcnair III, MD POINT OF CARE TEST ORDERABLES Final Result Performing Organization Address City/[facility] Co de Phone Number [facility] [address] [facility] * (ABNORMAL) POC Glucose Monitoring Device (11/02/2024 1:18 PM EDT) POC Glucose Monitoring Device 225(H) 70 - 100 mg/dL 11/02/2024 1:19 PM EDT [facility] Blood 11/02/2024 1:18 PM EDT 11/02/2024 1:19 PM EDT Semaj Mcnair III, MD POINT OF CARE TEST ORDERABLES Final Result [facility] [address] [facility]. [address] * (ABNORMAL) POC Glucose Monitoring Device (11/02/2024 8:59 AM EDT) POC Glucose Monitoring Device 129(H) 70 - 100 mg/dL 11/02/2024 9:00 AM EDT [facility] Blood 11/02/2024 8:59 AM EDT 11/02/2024 9:00 AM EDT us Semaj Mcnair III, MD POINT OF CARE TEST ORDERABLES Final Result Performing Organization Address [facility]/ZIP Co de Phone Number [facility] [address] [facility]. [address] * Tacrolimus level (11/02/2024 5:53 AM EDT) [facility] Tacrolimus (LC-MS) 7.4 3.0 - 15.0 ng/mL 11/02/2024 2:23 PM EDT [facility] Comment:Performed via liquid chromatography tandem mass spectrometry. Detection limit: 1 ng/mL. Individual target concentrations may vary due to target organ and time after transplant. This test has been developed and its performance characteristics determined by [facility] which is certified under [...] AM EDT 11/02/2024 6:12 AM EDT Hillary Frenandes PharmD LAB BLOOD ORDERABLES Denisse l Result Performing Organization Address [facility] Co de Phone Number [facility] [address] [facility]. [address] * (ABNORMAL) Renal Function Panel w/EGFR (11/02/2024 5:53 AM EDT) [facility] Sodium 140 133 - 146 mmol/L 11/02/2024 6:47 AM EDT [facility] Potassium 3.3(L) 3.5 - 5.3 mmol/L 11/02/2024 6:47 AM EDT [facility] Chloride 107 98 - 110 mmol/L 11/02/2024 6:47 AM EDT [facility] CO2 25 21 - 33 mmol/L 11/02/2024 6:47 AM EDT [facility] Anion Gap 8 3 - 16 mmol/L 11/02/2024 6:47 AM EDT [facility] BUN 31(H) 7 - 25 mg/dL 11/02/2024 6:47 AM EDT [facility] Creatinine 1.08 0.60 - 1.30 mg/dL 11/02/2024 6:47 AM EDT [facility] Glucose 150(H) 70 - 100 mg/dL 11/02/2024 6:47 AM EDT [facility] Calcium 7.8(L) 8.6 - 10.3 mg/dL 11/02/2024 6:47 AM EDT [facility] Phosphorus 2.0(L) 2.1 - 4.7 mg/dL 11/02/2024 6:47 AM EDT [facility] Albumin 3.2(L) 3.5 - 5.7 g/dL 11/02/2024 6:47 AM EDT [facility] Osmolality, Calculated 299 278 - 305 mOsm/kg 11/02/2024 6:47 AM EDT [facility] EGFR 88 11/02/2024 6:47 AM EDT [facility] Comment:As [...] 11/02/2024 6:12 AM EDT us Beata Horner CONDENSER OPERATOR LAB BLOOD ORDERABLES Denisse valle Result [facility] [address] [place] [address], [facility] * (ABNORMAL) Magnesium (11/02/2024 5:53 AM EDT) Magnesium 1.3(L) 1.5 - 2.5 mg/dL 11/02/2024 6:47 AM EDT [facility] Plasma 11/02/2024 5:53 AM EDT 11/02/2024 6:12 AM EDT Beata Horner [facility] LAB BLOOD ORDERABLES Denisse l Result Performing Organization Address [facility] Co de Phone Number [facility] [address] [facility] * (ABNORMAL) Hepatic Function Panel (11/02/2024 5:53 AM EDT) Total Bilirubin 1.6(H) 0.0 - 1.5 mg/dL 11/02/2024 6:47 AM EDT [facility] Bilirubin, Direct 0.81(H) 0.00 - 0.40 mg/dL 11/02/2024 6:47 AM EDT [facility] AST 30 13 - 39 U/L 11/02/2024 6:47 AM EDT [facility] ALT 66(H) 7 - 52 U/L 11/02/2024 6:47 AM EDT [facility] Alkaline Phosphatase 126(H) 36 - 125 U/L 11/02/2024 6:47 AM EDT [facility] Total Protein 4.6(L) 6.4 - 8.9 g/dL 11/02/2024 6:47 AM EDT [facility] Albumin 3.2(L) 3.5 - 5.7 g/dL 11/02/2024 6:47 AM EDT [facility] Bilirubin, Indirect 0.79 0.00 - 1.10 mg/dL 11/02/2024 6:47 AM EDT [facility] Plasma 11/02/2024 5:53 AM EDT 11/02/2024 6:12 AM EDT Beata Horner [facility] LAB BLOOD ORDERABLES Denisse l Result [facility] [address] * (ABNORMAL) CBC (11/02/2024 5:53 AM EDT) WBC 5.8 3.8 - 10.8 10E3/uL 11/02/2024 6:21 AM EDT [facility] RBC 3.12(L) 4.20 - 5.80 10E6/uL 11/02/2024 6:21 AM EDT [facility] Hemoglobin 9.2(L) 13.2 - 17.1 g/dL 11/02/2024 6:21 AM EDT [facility] Hematocrit 27.5(L) 38.5 - 50.0 % 11/02/2024 6:21 AM EDT [facility] MCV 87.9 80.0 - 100.0 fL 11/02/2024 6:21 AM EDT [facility] MCH 29.5 27.0 - 33.0 pg 11/02/2024 6:21 AM EDT [facility] MCHC 33.5 32.0 - 36.0 g/dL 11/02/2024 6:21 AM EDT [facility] RDW 17.5(H) 11.0 - 15.0 % 11/02/2024 6:21 AM EDT [facility] Platelets 61(L) 140 - 400 10E3/uL 11/02/2024 6:21 AM EDT [facility] MPV 7.9 7.5 - 11.5 fL 11/02/2024 6:21 AM EDT [facility] Whole Blood 11/02/2024 5:53 AM EDT 11/02/2024 6:12 AM EDT us Beata Horner CONDENSER OPERATOR LAB BLOOD ORDERABLES Denisse l Result [facility] [address] [facility]. [address] * (ABNORMAL) POC Glucose Monitoring Device (11/01/2024 9:26 PM EDT) POC Glucose Monitoring Device 199(H) 70 - 100 mg/dL 11/01/2024 9:27 PM EDT [facility] Blood 11/01/2024 9:26 PM EDT 11/01/2024 9:27 PM EDT us Semaj Mcnair III, MD POINT OF CARE TEST ORDERABLES Final Result Performing Organization Address City/[facility]/ZIP Co de Phone Number [facility] [address] * (ABNORMAL) POC Glucose Monitoring Device (11/01/2024 5:04 PM EDT) Pathologist [facility] POC Glucose Monitoring Device 255(H) 70 - 100 mg/dL 11/01/2024 5:05 PM EDT [facility] Blood 11/01/2024 5:04 PM EDT 11/01/2024 5:05 PM EDT us Semaj Mcnair III, MD POINT OF CARE TEST ORDERABLES Final Result Performing Organization Address [facility] Co de Phone Number [facility] [address] * (ABNORMAL) Renal Function Panel w/EGFR, STAT (11/01/2024 2:17 PM EDT) Pathologist [facility] Sodium 139 133 - 146 mmol/L 11/01/2024 3:10 PM EDT [facility] Potassium 3.3(L) 3.5 - 5.3 mmol/L 11/01/2024 3:10 PM EDT [facility] Chloride 107 98 - 110 mmol/L 11/01/2024 3:10 PM EDT [facility] CO2 24 21 - 33 mmol/L 11/01/2024 3:10 PM EDT [facility] Anion Gap 8 3 - 16 mmol/L 11/01/2024 3:10 PM EDT [facility] BUN 35(H) 7 - 25 mg/dL 11/01/2024 3:10 PM EDT [facility] Creatinine 1.22 0.60 - 1.30 mg/dL 11/01/2024 3:10 PM EDT [facility] Glucose 203(H) 70 - 100 mg/dL 11/01/2024 3:10 PM EDT [facility] Calcium 8.3(L) 8.6 - 10.3 mg/dL 11/01/2024 3:10 PM EDT [facility] Phosphorus 2.2 2.1 - 4.7 mg/dL 11/01/2024 3:10 PM EDT [facility] Albumin 3.4(L) 3.5 - 5.7 g/dL 11/01/2024 3:10 PM EDT [facility] Osmolality, Calculated 302 278 - 305 mOsm/kg 11/01/2024 3:10 PM EDT [facility] EGFR 76 11/01/2024 3:10 PM EDT [facility] Comment:As [...] MD LAB BLOOD ORDERABLES Final Result [facility] [address] [id number], [facility] * X-ray Portable Abdomen AP view [...] 100 mg/dL 11/01/2024 12:23 PM EDT [facility] Blood 11/01/2024 12:2 2 PM EDT 11/01/2024 12:23 PM EDT Semaj Mcnair III, MD POINT OF CARE TEST ORDERABLES Final Result Performing Organization Address City/[facility]/ZIP Co de Phone Number [facility] [address] [facility] * (ABNORMAL) POC Glucose Monitoring Device (11/01/2024 8:50 AM EDT) POC Glucose Monitoring Device 175(H) 70 - 100 mg/dL 11/01/2024 8:51 AM EDT [facility] Blood 11/01/2024 8:50 AM EDT 11/01/2024 8:51 AM EDT Semaj Mcnair III, MD POINT OF CARE TEST ORDERABLES Final Result Performing Organization Address [facility] Co de Phone Number [facility] [address] [facility] * Tacrolimus level (11/01/2024 6:01 AM EDT) Pathologist [facility] Tacrolimus (LC-MS) 7.5 3.0 - 15.0 ng/mL 11/01/2024 12:14 PM EDT [facility] Comment:Performed via liquid chromatography tandem mass spectrometry. Detection limit: 1 ng/mL. Individual target concentrations may vary due to target organ and time after transplant. This test has been developed and its performance characteristics determined by [facility] which is certified under [...] ORDERABLES Denisse l Result Performing Organization Address [facility]/ZIP Co de Phone Number [facility] [address] [facility] * (ABNORMAL) Renal Function Panel w/EGFR (11/01/2024 6:01 AM EDT) Sodium 139 133 - 146 mmol/L 11/01/2024 6:57 AM EDT [facility] Potassium 3.3(L) 3.5 - 5.3 mmol/L 11/01/2024 6:57 AM EDT [facility] Chloride 108 98 - 110 mmol/L 11/01/2024 6:57 AM EDT [facility] CO2 22 21 - 33 mmol/L 11/01/2024 6:57 AM EDT [facility] Anion Gap 9 3 - 16 mmol/L 11/01/2024 6:57 AM EDT [facility] BUN 37(H) 7 - 25 mg/dL 11/01/2024 6:57 AM EDT [facility] Creatinine 1.30 0.60 - 1.30 mg/dL 11/01/2024 6:57 AM EDT [facility] Glucose 163(H) 70 - 100 mg/dL 11/01/2024 6:57 AM EDT [facility] Calcium 8.2(L) 8.6 - 10.3 mg/dL 11/01/2024 6:57 AM EDT [facility] Phosphorus 2.9 2.1 - 4.7 mg/dL 11/01/2024 6:57 AM EDT [facility] Albumin 3.1(L) 3.5 - 5.7 g/dL 11/01/2024 6:57 AM EDT [facility] Osmolality, Calculated 300 278 - 305 mOsm/kg 11/01/2024 6:57 AM EDT [facility] EGFR 71 11/01/2024 6:57 AM EDT [facility] Comment:As [...] 11/01/2024 6:20 AM EDT Beata Garland Evens CONDENSER OPERATOR LAB BLOOD ORDERABLES Denisse l Result Performing Organization Address City/[facility]/ZIP Co de Phone Number [facility] [address] [facility] * Magnesium (11/01/2024 6:01 AM EDT) Magnesium 1.5 1.5 - 2.5 mg/dL 11/01/2024 6:57 AM EDT [facility] Plasma 11/01/2024 6:01 AM EDT 11/01/2024 6:20 AM EDT Beata Garland Evens [facility] LAB BLOOD ORDERABLES Denisse l Result Performing Organization Address [facility] [[email or web address]] de Phone Number [facility] [address] [facility] * (ABNORMAL) Hepatic Function Panel (11/01/2024 6:01 AM EDT) Total Bilirubin 2.0(H) 0.0 - 1.5 mg/dL 11/01/2024 6:57 AM EDT [facility] Bilirubin, Direct 1.06(H) 0.00 - 0.40 mg/dL 11/01/2024 6:57 AM EDT [facility] AST 21 13 - 39 U/L 11/01/2024 6:57 AM EDT [facility] ALT 62(H) 7 - 52 U/L 11/01/2024 6:57 AM EDT [facility] Alkaline Phosphatase 114 36 - 125 U/L 11/01/2024 6:57 AM EDT [facility] Total Protein 4.6(L) 6.4 - 8.9 g/dL 11/01/2024 6:57 AM EDT [facility] Albumin 3.1(L) 3.5 - 5.7 g/dL 11/01/2024 6:57 AM EDT [facility] Bilirubin, Indirect 0.94 0.00 - 1.10 mg/dL 11/01/2024 6:57 AM EDT [facility] Plasma 11/01/2024 6:01 AM EDT 11/01/2024 6:20 AM EDT Beata Horner CONDENSER OPERATOR LAB BLOOD ORDERABLES Denisse l Result [facility] [address] [place] [address], [facility] * (ABNORMAL) CBC (11/01/2024 6:01 AM EDT) WBC 5.9 3.8 - 10.8 10E3/uL 11/01/2024 6:29 AM EDT [facility] RBC 3.19(L) 4.20 - 5.80 10E6/uL 11/01/2024 6:29 AM EDT [facility] Hemoglobin 9.5(L) 13.2 - 17.1 g/dL 11/01/2024 6:29 AM EDT [facility] Hematocrit 27.8(L) 38.5 - 50.0 % 11/01/2024 6:29 AM EDT [facility] MCV 87.1 80.0 - 100.0 fL 11/01/2024 6:29 AM EDT [facility] MCH 29.9 27.0 - 33.0 pg 11/01/2024 6:29 AM EDT [facility] MCHC 34.3 32.0 - 36.0 g/dL 11/01/2024 6:29 AM EDT [facility] RDW 17.4(H) 11.0 - 15.0 % 11/01/2024 6:29 AM EDT [facility] Platelets 56(L) 140 - 400 10E3/uL 11/01/2024 6:29 AM EDT [facility] MPV 8.3 7.5 - 11.5 fL 11/01/2024 6:29 AM EDT [facility] Whole Blood 11/01/2024 6:01 AM EDT 11/01/2024 6:19 AM EDT us Beata Horner [facility] BLOOD ORDERABLES Denisse l Result Performing Organization Address [facility] Co de Phone Number [facility] [address] [facility] * (ABNORMAL) POC Glucose Monitoring Device (10/31/2024 9:15 PM EDT) POC Glucose Monitoring Device 171(H) 70 - 100 mg/dL 10/31/2024 9:15 PM EDT [facility] Blood 10/31/2024 9:15 PM EDT 10/31/2024 9:15 PM EDT us Semaj Mcnair III, MD POINT OF CARE TEST ORDERABLES Final Result Performing Organization Address [facility] Co de Phone Number [facility] [address] [facility] * (ABNORMAL) POC Glucose Monitoring Device (10/31/2024 5:56 PM EDT) POC Glucose Monitoring Device 179(H) 70 - 100 mg/dL 10/31/2024 5:57 PM EDT [facility] Blood 10/31/2024 5:56 PM EDT 10/31/2024 5:57 PM EDT us Semaj Mcnair III, MD POINT OF CARE TEST ORDERABLES Final Result Performing Organization Address [facility] Co de Phone Number [facility] [address] [facility] * CT Abdomen and Pelvis WO [...] Adrenal gland: No focal nodule seen. Kidneys: [place] kidneys noted with nonobstructing calcifications on the right. Findings of postsurgical changes in the left [place] kidney. Mild right hydronephrosis without an obstructive [...] Adrenal gland: No focal nodule seen. Kidneys: [place] kidneys noted with nonobstructing calcifications on theright. Findings of postsurgical changes in the left [place] kidney. Mildright hydronephrosis without an obstructive course [...] 10/31/2024 4:38 PM EDT Sveta Judge MD IM CT ORDERABLES Final Result * ECG 12-lead (MUSE) (10/31/2024 3:42 PM EDT) 10/31/2024 3:42 PM EDT Narrative MUSE - 11/02/2024 6:56 AM EDT Ventricular Rate: 78 BPM Atrial Rate: 78 BPM P-R Interval: 166 ms QRS Duration: 88 ms QT: 400 ms QTc: 456 ms P Henderson: 49 degrees R Henderson: 3 degrees T Henderson: 14 degrees Diagnosis Line: NORMAL SINUS RHYTHM ^ NORMAL ECG ^ ^ Confirmed by MD JEANETTE, TORI ([id number]) on 11/02/2024 6:56:52 AM Priti Geiger CNP ECG ORDERABLES Final Result [facility] * (ABNORMAL) Urinalysis w/Rfl to Microscopic (10/31/2024 1:18 PM EDT) Color, UA Straw Yellow,Straw 10/31/2024 1:46 PM EDT [facility] Clarity, UA Clear Clear 10/31/2024 1:46 PM EDT [facility] Specific Smoot, UA 1.013 1.005 - 1.035 10/31/2024 1:46 PM EDT [facility] pH, UA 6.5 5.0 - 8.0 10/31/2024 1:46 PM EDT [facility] Protein, UA Negative Negative mg/dL 10/31/2024 1:46 PM EDT [facility] Glucose, UA Negative Negative mg/dL 10/31/2024 1:46 PM EDT [facility] Ketones, UA Negative Negative mg/dL 10/31/2024 1:46 PM EDT [facility] Bilirubin, UA Negative Negative 10/31/2024 1:46 PM EDT [facility] Blood, UA Large(A) Negative 10/31/2024 1:46 PM EDT [facility] Nitrite, UA Negative Negative 10/31/2024 1:46 PM EDT [facility] Urobilinogen, UA <2.0 0.2 - 1.9 mg/dL 10/31/2024 1:46 PM EDT [facility] Leukocyte Esterase, UA Negative Negative 10/31/2024 1:46 PM EDT [facility] RBC, UA >100(H) 0 - 3 /HPF 10/31/2024 1:46 PM EDT [facility] WBC, UA 3 0 - 5 /HPF 10/31/2024 1:46 PM EDT [facility] Hyaline Casts, UA 3(H) 0 - 2 /LPF 10/31/2024 1:46 PM EDT [facility] Urine 10/31/2024 1:18 PM EDT 10/31/2024 1:32 PM EDT Priti Geiger CNP URINE ORDERABLES Final Result Performing Organization Address City/[facility]/ZIP Co de Phone Number [facility] [address] [facility]. [address] * (ABNORMAL) Post Kidney Transplant Urine Culture (10/31/2024 1:18 PM EDT) Culture Result Enterococcus faecium, Vancomycin Resistant(A) [facility] Comment: 1,000- <10,000 cfu/mL Identified by [...] ORDERA BLES Final Result Performing Organization Address [facility] Co de Phone Number [facility] [address] [facility] * (ABNORMAL) POC Glucose Monitoring Device (10/31/2024 11:59 AM EDT) POC Glucose Monitoring Device 130(H) 70 - 100 mg/dL 10/31/2024 12:21 PM EDT [facility] Blood 10/31/2024 11:5 9 AM EDT 10/31/2024 12:21 PM EDT Semaj Mcnair III, MD POINT OF CARE TEST ORDERABLES Final Result Performing Organization Address City/[facility]/ZIP Co de Phone Number [facility] [address] * US Abdomen Limited (10/31/2024 10:19 [...] EXAM: US ABDOMEN LIMITED EXAM: US DUPLEX [id number] COMPLETE INDICATION: Post-op liver transplant COMPARISON: None [...] visualized secondary to poor acoustic windows. The [place] right kidney measures 11.6 cm in length. [...] EXAM: US ABDOMEN LIMITED EXAM: US DUPLEX [id number] COMPLETE INDICATION: Post-op liver transplant COMPARISON: None [...] well visualized secondary to poor acousticwindows. The [place] right kidney measures 11.6 cm in length. [...] at 10/31/2024 10:35 AM EDT Beata Horner [facility] IM US ORDERABLES Final R esult * [...] 10/31/2024 10:29 AM EDT us Beata Horner [facility] US ORDERABLES Final R esult * US Duplex Dhd-Axf-Kzwuoox Comp (10/31/2024 10:19 AM EDT) Anatomical Region [...] EXAM: US ABDOMEN LIMITED EXAM: US DUPLEX [id number] COMPLETE INDICATION: Post-op liver transplant COMPARISON: None [...] visualized secondary to poor acoustic windows. The [place] right kidney measures 11.6 cm in length. [...] EXAM: US ABDOMEN LIMITED EXAM: US DUPLEX [id number] COMPLETE INDICATION: Post-op liver transplant COMPARISON: None [...] well visualized secondary to poor acousticwindows. The [place] right kidney measures 11.6 cm in length. [...] 10/31/2024 10:35 AM EDT us Beata Horner [facility] US ORDERABLES Final R esult * ECG 12-lead (MUSE) (10/31/2024 8:57 AM EDT) 10/31/2024 8:57 AM EDT Narrative MUSE - 11/01/2024 9:21 AM EDT Ventricular Rate: 83 BPM Atrial Rate: 83 BPM P-R Interval: 168 ms QRS Duration: 102 ms QT: 392 ms QTc: 460 ms P Henderson: 64 degrees R Henderson: -18 degrees T Henderson: 7 degrees Diagnosis Line: NORMAL SINUS RHYTHM ^ NORMAL ECG ^ ^ Confirmed by MD JOE, KIMBERLYIIEbony ([id number]) on 11/01/2024 9:21:13 AM us Priti Geiger CONDENSER OPERATOR ECG ORDERABLES Final Result [facility] * (ABNORMAL) POC Glucose Monitoring Device (10/31/2024 8:44 AM EDT) [facility] POC Glucose Monitoring Device 145(H) 70 - 100 mg/dL 10/31/2024 8:45 AM EDT [facility] Blood 10/31/2024 8:44 AM EDT 10/31/2024 8:44 AM EDT Semaj Mcnair III, MD POINT OF CARE TEST ORDERABLES Final Result Performing Organization Address [facility] Co de Phone Number [facility] [address] * Tacrolimus level (10/31/2024 6:40 AM EDT) [facility] Tacrolimus (LC-MS) 8.4 3.0 - 15.0 ng/mL 10/31/2024 10:05 AM EDT [facility] Comment:Performed via liquid chromatography tandem mass spectrometry. Detection limit: 1 ng/mL. Individual target concentrations may vary due to target organ and time after transplant. This test has been developed and its performance characteristics determined by [facility] which is certified under [...] ORDERABLES Denisse l Result Performing Organization Address City/[facility]/ZIP Co de Phone Number [facility] [address] [facility]. [address] * (ABNORMAL) Renal Function Panel w/EGFR (10/31/2024 6:40 AM EDT) [facility] Sodium 141 133 - 146 mmol/L 10/31/2024 8:09 AM EDT [facility] Potassium 3.5 3.5 - 5.3 mmol/L 10/31/2024 8:09 AM EDT [facility] Chloride 111(H) 98 - 110 mmol/L 10/31/2024 8:09 AM EDT [facility] CO2 20(L) 21 - 33 mmol/L 10/31/2024 8:09 AM EDT [facility] Anion Gap 10 3 - 16 mmol/L 10/31/2024 8:09 AM EDT [facility] BUN 54(H) 7 - 25 mg/dL 10/31/2024 8:09 AM EDT [facility] Creatinine 1.75(H) 0.60 - 1.30 mg/dL 10/31/2024 8:09 AM EDT [facility] Glucose 136(H) 70 - 100 mg/dL 10/31/2024 8:09 AM EDT [facility] Calcium 8.7 8.6 - 10.3 mg/dL 10/31/2024 8:09 AM EDT [facility] Phosphorus 4.1 2.1 - 4.7 mg/dL 10/31/2024 8:09 AM EDT [facility] [facility] Albumin 3.2(L) 3.5 - 5.7 g/dL 10/31/2024 8:09 AM EDT [facility] Osmolality, Calculated 309(H) 278 - 305 mOsm/kg 10/31/2024 8:09 AM EDT [facility] EGFR 50 10/31/2024 8:09 AM EDT [facility] Comment:As [...] 10/31/2024 7:35 AM EDT Beata Garland Evens CONDENSER OPERATOR LAB BLOOD ORDERABLES Denisse l Result [facility] [address] [facility]. [address] * Magnesium (10/31/2024 6:40 AM EDT) Magnesium 1.8 1.5 - 2.5 mg/dL 10/31/2024 8:09 AM EDT [facility] Plasma 10/31/2024 6:40 AM EDT 10/31/2024 7:35 AM EDT Beata Garland Evens [facility] BLOOD ORDERABLES Denisse l Result Performing Organization Address City/[facility] Co de Phone Number [facility] [address] * (ABNORMAL) Hepatic Function Panel (10/31/2024 6:40 AM EDT) Total Bilirubin 2.7(H) 0.0 - 1.5 mg/dL 10/31/2024 8:09 AM EDT [facility] Bilirubin, Direct 1.57(H) 0.00 - 0.40 mg/dL 10/31/2024 8:09 AM EDT [facility] AST 26 13 - 39 U/L 10/31/2024 8:09 AM EDT [facility] ALT 68(H) 7 - 52 U/L 10/31/2024 8:09 AM EDT [facility] Alkaline Phosphatase 112 36 - 125 U/L 10/31/2024 8:09 AM EDT [facility] Total Protein 4.7(L) 6.4 - 8.9 g/dL 10/31/2024 8:09 AM EDT [facility] Albumin 3.2(L) 3.5 - 5.7 g/dL 10/31/2024 8:09 AM EDT [facility] Bilirubin, Indirect 1.13(H) 0.00 - 1.10 mg/dL 10/31/2024 8:09 AM EDT [facility] Plasma 10/31/2024 6:40 AM EDT 10/31/2024 7:35 AM EDT Beata Horner [facility] BLOOD ORDERABLES Denisse l Result [facility] [address] [place] [address], [facility] * (ABNORMAL) CBC (10/31/2024 6:40 AM EDT) WBC 6.0 3.8 - 10.8 10E3/uL 10/31/2024 8:05 AM EDT [facility] RBC 3.14(L) 4.20 - 5.80 10E6/uL 10/31/2024 8:05 AM EDT [facility] Hemoglobin 9.6(L) 13.2 - 17.1 g/dL 10/31/2024 8:05 AM EDT [facility] Hematocrit 27.5(L) 38.5 - 50.0 % 10/31/2024 8:05 AM EDT [facility] MCV 87.6 80.0 - 100.0 fL 10/31/2024 8:05 AM EDT [facility] MCH 30.7 27.0 - 33.0 pg 10/31/2024 8:05 AM EDT [facility] MCHC 35.0 32.0 - 36.0 g/dL 10/31/2024 8:05 AM EDT [facility] RDW 17.9(H) 11.0 - 15.0 % 10/31/2024 8:05 AM EDT [facility] Platelets 44(L) 140 - 400 10E3/uL 10/31/2024 8:05 AM EDT [facility] Comment: CNV Specimen checked for clots. None detected. MPV 8.9 7.5 - 11.5 fL 10/31/2024 8:05 AM EDT [facility] Whole Blood 10/31/2024 6:40 AM EDT 10/31/2024 7:34 AM EDT Beata Horner [facility] BLOOD ORDERABLES Denisse l Result Performing Organization Address City/[facility]/ZIP Co de Phone Number [facility] [address] [facility]. [address] * (ABNORMAL) POC Glucose Monitoring Device (10/30/2024 9:01 PM EDT) POC Glucose Monitoring Device 144(H) 70 - 100 mg/dL 10/30/2024 9:02 PM EDT [facility] Blood 10/30/2024 9:01 PM EDT 10/30/2024 9:01 PM EDT us Semaj Mcnair III, MD POINT OF CARE TEST ORDERABLES Final Result Performing Organization Address [facility] Co de Phone Number [facility] [address] [facility]. [address] * (ABNORMAL) POC Glucose Monitoring Device (10/30/2024 5:37 PM EDT) POC Glucose Monitoring Device 124(H) 70 - 100 mg/dL 10/30/2024 5:47 PM EDT [facility] Blood 10/30/2024 5:37 PM EDT 10/30/2024 5:47 PM EDT us Semaj Mcnair III, MD POINT OF CARE TEST ORDERABLES Final Result Performing Organization Address City/[facility] Co de Phone Number [facility] [address] [facility]. [address] * (ABNORMAL) POC Glucose Monitoring Device (10/30/2024 7:26 AM EDT) POC Glucose Monitoring Device 150(H) 70 - 100 mg/dL 10/30/2024 7:27 AM EDT [facility] Blood 10/30/2024 7:26 AM EDT 10/30/2024 7:27 AM EDT us Semaj Mcnair III, MD POINT OF CARE TEST ORDERABLES Final Result [facility] [address] * Tacrolimus level (10/30/2024 7:13 AM EDT) Tacrolimus (LC-MS) 9.5 3.0 - 15.0 ng/mL 10/30/2024 2:53 PM EDT [facility] Comment:Performed via liquid chromatography tandem mass spectrometry. Detection limit: 1 ng/mL. Individual target concentrations may vary due to target organ and time after transplant. This test has been developed and its performance characteristics determined by [facility] which is certified under [...] 7:13 AM EDT 10/30/2024 7:26 AM EDT [employer] [facility] BLOOD ORDERABLES Final Re sult Performing Organization Address [facility] [[email or web address]] de Phone Number [facility] [address] * ECG 12-lead (MUSE) (10/30/2024 6:51 AM EDT) 10/30/2024 6:51 AM EDT Narrative MUSE - 11/01/2024 9:21 AM EDT Ventricular Rate: 92 BPM Atrial Rate: 92 BPM P-R Interval: 174 ms QRS Duration: 96 ms QT: 376 ms QTc: 464 ms P Henderson: 54 degrees R Henderson: -24 degrees T Henderson: 11 degrees Diagnosis Line: NORMAL SINUS RHYTHM ^ NORMAL ECG ^ ^ Confirmed by MD JOE, OTIS ([id number]) on 11/01/2024 9:21:09 AM [employer] [facility] ECG ORDERABLES Final Result Performing Organization Address [facility] [[email or web address]] de Phone Number MUSE * (ABNORMAL) Renal Function Panel w/EGFR (10/30/2024 5:41 AM EDT) Sodium 140 133 - 146 mmol/L 10/30/2024 6:18 AM EDT [facility] Potassium 3.8 3.5 - 5.3 mmol/L 10/30/2024 6:18 AM EDT [facility] Chloride 111(H) 98 - 110 mmol/L 10/30/2024 6:18 AM EDT [facility] CO2 17(L) 21 - 33 mmol/L 10/30/2024 6:18 AM EDT [facility] Anion Gap 12 3 - 16 mmol/L 10/30/2024 6:18 AM EDT [facility] BUN 62(H) 7 - 25 mg/dL 10/30/2024 6:18 AM EDT [facility] Creatinine 1.96(H) 0.60 - 1.30 mg/dL 10/30/2024 6:18 AM EDT [facility] Glucose 116(H) 70 - 100 mg/dL 10/30/2024 6:18 AM EDT [facility] Calcium 9.0 8.6 - 10.3 mg/dL 10/30/2024 6:18 AM EDT [facility] Phosphorus 4.6 2.1 - 4.7 mg/dL 10/30/2024 6:18 AM EDT [facility] Albumin 3.2(L) 3.5 - 5.7 g/dL 10/30/2024 6:18 AM EDT [facility] Osmolality, Calculated 309(H) 278 - 305 mOsm/kg 10/30/2024 6:18 AM EDT [facility] EGFR 43 10/30/2024 6:18 AM EDT [facility] Comment:As [...] AM EDT 10/30/2024 5:47 AM EDT Beata Bessn CONDENSER OPERATOR LAB BLOOD ORDERABLES Denisse l Result Performing Organization Address City/[facility]/ZIP Co de Phone Number [facility] [address] [facility]. [address] * Magnesium (10/30/2024 5:41 AM EDT) Magnesium 2.2 1.5 - 2.5 mg/dL 10/30/2024 6:18 AM EDT [facility] Plasma 10/30/2024 5:41 AM EDT 10/30/2024 5:47 AM EDT [facility] BLOOD ORDERABLES Denisse l Result Performing Organization Address [facility] [[email or web address]] de Phone Number [facility] [address] [facility] * (ABNORMAL) Hepatic Function Panel (10/30/2024 5:41 AM EDT) Total Bilirubin 3.6(H) 0.0 - 1.5 mg/dL 10/30/2024 6:18 AM EDT [facility] Bilirubin, Direct 1.95(H) 0.00 - 0.40 mg/dL 10/30/2024 6:18 AM EDT [facility] AST 33 13 - 39 U/L 10/30/2024 6:18 AM EDT [facility] ALT 71(H) 7 - 52 U/L 10/30/2024 6:18 AM EDT [facility] Alkaline Phosphatase 80 36 - 125 U/L 10/30/2024 6:18 AM EDT [facility] Total Protein 4.8(L) 6.4 - 8.9 g/dL 10/30/2024 6:18 AM EDT [facility] Albumin 3.2(L) 3.5 - 5.7 g/dL 10/30/2024 6:18 AM EDT [facility] Bilirubin, Indirect 1.65(H) 0.00 - 1.10 mg/dL 10/30/2024 6:18 AM EDT [facility] Plasma 10/30/2024 5:41 AM EDT 10/30/2024 5:47 AM EDT Beata Horner [facility] BLOOD ORDERABLES Denisse l Result [facility] [address] [place] [address], [facility] * (ABNORMAL) CBC (10/30/2024 5:41 AM EDT) WBC 8.1 3.8 - 10.8 10E3/uL 10/30/2024 8:06 AM EDT [facility] RBC 3.29(L) 4.20 - 5.80 10E6/uL 10/30/2024 8:06 AM EDT [facility] Hemoglobin 10.1(L) 13.2 - 17.1 g/dL 10/30/2024 8:06 AM EDT [facility] Hematocrit 28.8(L) 38.5 - 50.0 % 10/30/2024 8:06 AM EDT [facility] MCV 87.6 80.0 - 100.0 fL 10/30/2024 8:06 AM EDT [facility] MCH 30.6 27.0 - 33.0 pg 10/30/2024 8:06 AM EDT [facility] MCHC 34.9 32.0 - 36.0 g/dL 10/30/2024 8:06 AM EDT [facility] RDW 18.1(H) 11.0 - 15.0 % 10/30/2024 8:06 AM EDT [facility] Platelets 44(L) 140 - 400 10E3/uL 10/30/2024 8:06 AM EDT [facility] Comment: CNV Specimen checked for clots. None detected. MPV 8.3 7.5 - 11.5 fL 10/30/2024 8:06 AM EDT [facility] Whole Blood 10/30/2024 5:41 AM EDT 10/30/2024 5:50 AM EDT Beata Horner [facility] BLOOD ORDERABLES Denisse l Result [facility] [address] [facility]. [address] * (ABNORMAL) POC Glucose Monitoring Device (10/29/2024 10:18 PM EDT) POC Glucose Monitoring Device 140(H) 70 - 100 mg/dL 10/29/2024 10:18 PM EDT [facility] Blood 10/29/2024 10:1 8 PM EDT 10/29/2024 10:18 PM EDT Semaj Mcnair III, MD POINT OF CARE TEST ORDERABLES Final Result [facility] [address] [facility] * (ABNORMAL) POC Glucose Monitoring Device (10/29/2024 6:42 PM EDT) POC Glucose Monitoring Device 152(H) 70 - 100 mg/dL 10/29/2024 6:43 PM EDT [facility] Blood 10/29/2024 6:42 PM EDT 10/29/2024 6:43 PM EDT Semaj Mcnair III, MD POINT OF CARE TEST ORDERABLES Final Result [facility] [address] [facility] * (ABNORMAL) POC Glucose Monitoring Device (10/29/2024 11:35 AM EDT) POC Glucose Monitoring Device 130(H) 70 - 100 mg/dL 10/29/2024 11:36 AM EDT [facility] Blood 10/29/2024 11:3 5 AM EDT 10/29/2024 11:36 AM EDT Semaj Mcnair III, MD POINT OF CARE TEST ORDERABLES Final Result Performing Organization Address City/[facility]/ZIP Co de Phone Number [facility] [address] * ECG 12 lead (MUSE) (10/29/2024 9:34 AM EDT) 10/29/2024 9:34 AM EDT Narrative MUSE - 10/29/2024 10:34 PM EDT Ventricular Rate: 97 BPM Atrial Rate: 97 BPM P-R Interval: 186 ms QRS Duration: 104 ms QT: 382 ms QTc: 485 ms P Henderson: 54 degrees R Henderson: -21 degrees T Henderson: 1 degrees Diagnosis Line: NORMAL SINUS RHYTHM ^ NORMAL ECG ^ Confirmed by JORGE MACIAS ([id number]) on 10/29/2024 10:34:50 PM Afshan Bear MD ECG ORDERABLES Final Result Performing Organization Address City/[facility] Co de Phone Number MUSE * Tacrolimus level (10/29/2024 8:08 AM EDT) [facility] Tacrolimus (LC-MS) 10.4 3.0 - 15.0 ng/mL 10/29/2024 2:07 PM EDT [facility] Comment:Performed via liquid chromatography tandem mass spectrometry. Detection limit: 1 ng/mL. Individual target concentrations may vary due to target organ and time after transplant. This test has been developed and its performance characteristics determined by [facility] which is certified under [...] 8:08 AM EDT 10/29/2024 8:21 AM EDT us Priti Geiger CONDENSER OPERATOR LAB BLOOD ORDERABLES Final Re sult [facility] [address] [place] [address], [facility] * Prepare RBC, leukoreduced, 1 Units (10/29/2024 6:16 AM EDT) Product Code O9224T20 [facility] Unit Number [id number] [facility] Dispense Status Presumed Transfused_PT [facility] Blood Expiration Date [id number] [facility] Coding System [id number] [facility] Blood Bank Product us Shay Plata MD BLOOD BANK PRODUCT O RDERABLES Final Result Performing Organization Address [facility]/ZIP Co de Phone Number [facility] * Prepare RBC, leukoreduced, 1 Units (10/29/2024 6:15 AM EDT) Product Code Z7270B64 [facility] Unit Number [id number] [facility] Dispense Status Presumed Transfused_PT [facility] Blood Expiration Date [id number] [facility] Coding System [id number] [facility] Blood Bank Product us Carlos Marks MD BLOOD BANK PRODUCT ORDERABL ES Final Result Performing Organization Address [facility]/ZIP Co de Phone Number [facility] * Prepare RBC, leukoreduced, 1 Units (10/29/2024 6:15 AM EDT) Product Code T6004P10 [facility] Unit Number [id number] [facility] Dispense Status Presumed Transfused_PT [facility] Blood Expiration Date [id number] [facility] Coding System [id number] [facility] Blood Bank Product us John Moreno MD BLOOD BANK PRODUCT ORDERABLE S Final Result [facility] * (ABNORMAL) Renal Function Panel w/EGFR (10/29/2024 5:07 AM EDT) Sodium 144 133 - 146 mmol/L 10/29/2024 5:49 AM EDT [facility] Potassium 3.8 3.5 - 5.3 mmol/L 10/29/2024 5:49 AM EDT [facility] Chloride 113(H) 98 - 110 mmol/L 10/29/2024 5:49 AM EDT [facility] CO2 17(L) 21 - 33 mmol/L 10/29/2024 5:49 AM EDT [facility] Anion Gap 14 3 - 16 mmol/L 10/29/2024 5:49 AM EDT [facility] BUN 57(H) 7 - 25 mg/dL 10/29/2024 5:49 AM EDT [facility] Creatinine 1.93(H) 0.60 - 1.30 mg/dL 10/29/2024 5:49 AM EDT [facility] Glucose 110(H) 70 - 100 mg/dL 10/29/2024 5:49 AM EDT [facility] Calcium 9.3 8.6 - 10.3 mg/dL 10/29/2024 5:49 AM EDT [facility] Phosphorus 4.8(H) 2.1 - 4.7 mg/dL 10/29/2024 5:49 AM EDT [facility] Albumin 3.5 3.5 - 5.7 g/dL 10/29/2024 5:49 AM [facility] Osmolality, Calculated 314(H) 278 - 305 mOsm/kg 10/29/2024 5:49 AM EDT [facility] EGFR 44 10/29/2024 5:49 AM EDT [facility] Comment:As [...] M, Olivia DC, Emerita ND, Madelyn CA, Embedded Systems Software Engineer [place], et al. A Unifying Approach for GFR Estimation: Recommendations of the NKF-ASN Task Force on Reassessing the inclusion of Race in Diagnosing Kidney Disease. Am J Kidney Dis. 2020. Plasma 10/29/2024 5:0 7 AM EDT 10/29/2024 5:13 AM EDT Beata Bessn CONDENSER OPERATOR LAB BLOOD ORDERABLES Denisse l Result Performing Organization Address City/[facility]/ZIP Co de Phone Number [facility] [address] [facility] * Magnesium (10/29/2024 5:07 AM EDT) Magnesium 2.1 1.5 - 2.5 mg/dL 10/29/2024 5:49 AM EDT [facility] Plasma 10/29/2024 5:07 AM EDT 10/29/2024 5:13 AM EDT Beata Garland Evens [facility] BLOOD ORDERABLES Denisse l Result Performing Organization Address [facility] [[email or web address]] de Phone Number [facility] [address] [facility] * (ABNORMAL) Hepatic Function Panel (10/29/2024 5:07 AM EDT) Total Bilirubin 4.2(H) 0.0 - 1.5 mg/dL 10/29/2024 5:49 AM EDT [facility] Bilirubin, Direct 2.85(H) 0.00 - 0.40 mg/dL 10/29/2024 5:49 AM EDT [facility] AST 31 13 - 39 U/L 10/29/2024 5:49 AM EDT [facility] ALT 88(H) 7 - 52 U/L 10/29/2024 5:49 AM EDT [facility] Alkaline Phosphatase 51 36 - 125 U/L 10/29/2024 5:49 AM EDT [facility] Total Protein 5.2(L) 6.4 - 8.9 g/dL 10/29/2024 5:49 AM EDT [facility] Albumin 3.5 3.5 - 5.7 g/dL 10/29/2024 5:49 AM EDT [facility] Bilirubin, Indirect 1.35(H) 0.00 - 1.10 mg/dL 10/29/2024 5:49 AM EDT [facility] Plasma 10/29/2024 5:07 AM EDT 10/29/2024 5:13 AM EDT Beata Horner [facility] BLOOD ORDERABLES Denisse l Result [facility] [address] [place] [address], [facility] * (ABNORMAL) CBC (10/29/2024 5:07 AM EDT) WBC 7.8 3.8 - 10.8 10E3/uL 10/29/2024 5:38 AM EDT [facility] RBC 3.05(L) 4.20 - 5.80 10E6/uL 10/29/2024 5:38 AM EDT [facility] Hemoglobin 9.0(L) 13.2 - 17.1 g/dL 10/29/2024 5:38 AM EDT [facility] Hematocrit 26.7(L) 38.5 - 50.0 % 10/29/2024 5:38 AM EDT [facility] MCV 87.4 80.0 - 100.0 fL 10/29/2024 5:38 AM EDT [facility] MCH 29.7 27.0 - 33.0 pg 10/29/2024 5:38 AM EDT [facility] MCHC 33.9 32.0 - 36.0 g/dL 10/29/2024 5:38 AM EDT [facility] RDW 18.3(H) 11.0 - 15.0 % 10/29/2024 5:38 AM EDT [facility] Platelets 41(L) 140 - 400 10E3/uL 10/29/2024 5:38 AM EDT [facility] Comment: CNV Specimen checked for clots. None detected. MPV 7.5 7.5 - 11.5 fL 10/29/2024 5:38 AM EDT [facility] Whole Blood 10/29/2024 5:07 AM EDT 10/29/2024 5:13 AM EDT us Beata Dada Horner CNP LAB BLOOD ORDERABLES Denisse l Result [facility] [address] * (ABNORMAL) TEG-Bypass/ECMO/Liver HN (Factor function, Platelet/Fibrin Clot Strength w/Clot Breakdown, Heparinase In All Channels) (10/29/2024 5:07 AM EDT) [facility] Citrated Kaolin Reaction Time (TEGECMOLIVER) 8.9 4.6 - 9.1 minutes 10/29/2024 7:04 AM EDT [facility] Citrated Kaolin W/Heparinase Reaction Time (TEGECMOLIVER) 7.4 4.3 - 8.3 minutes 10/29/2024 7:04 AM EDT [facility] Citrated Kaolin Maximum Amplitude (TEGECMOLIVER) 52.9 52.0 - 69.0 mm 10/29/2024 7:04 AM EDT [facility] Citrated Functional Fibrinogen W/Heparinase Maximum Amplitude(TEGEC MOLIVER) 20.7 15.0 - 34.0 mm 10/29/2024 7:04 AM EDT [facility] Citrated Rapid Teg W/Heparinase Maximum Amplitude (TEGECMOLIVER) 49.7(L) 53.0 - 69.0 mm 10/29/2024 7:04 AM EDT [facility] Citrated Kaolin w/Heparinase Percent Lysis (TEGECMOLIVER) 0.0 0.0 - 3.2 % 10/29/2024 7:04 AM EDT [facility] Whole Blood (Citrate) 10/29/2024 5:07 AM EDT 10/29/2024 5:10 AM EDT Kemar Sahni MD LAB BLOOD ORDERABLES Final Result [facility] [address] * (ABNORMAL) TEG-Bypass/ECMO/Liver HN (Factor function, Platelet/Fibrin Clot Strength w/Clot Breakdown, Heparinase In All Channels) (10/28/2024 11:55 PM EDT) Citrated Kaolin Reaction Time (TEGECMOLIVER) 8.6 4.6 - 9.1 minutes 10/29/2024 2:01 AM EDT [facility] Citrated Kaolin W/Heparinase Reaction Time (TEGECMOLIVER) 8.7(H) 4.3 - 8.3 minutes 10/29/2024 2:01 AM EDT [facility] Citrated Ka[employer] Maximum Amplitude (TEGECMOLIVER) 47.9(L) 52.0 - 69.0 mm 10/29/2024 2:01 AM EDT [facility] Citrated Functional Fibrinogen W/Heparinase Maximum Amplitude(TEGEC MOLIVER) 22.0 15.0 - 34.0 mm 10/29/2024 2:01 AM EDT [facility] Citrated Rapid Teg W/Heparinase Maximum Amplitude (TEGECMOLIVER) 45.9(L) 53.0 - 69.0 mm 10/29/2024 2:01 AM EDT [facility] Citrated Kaolin w/Heparinase Percent Lysis (TEGECMOLIVER) 0.0 0.0 - 3.2 % 10/29/2024 2:01 AM EDT [facility] Whole Blood (Citrate) 10/28/2024 11:55 PM EDT 10/28/2024 11:58 PM EDT us Kemar Sahni MD LAB BLOOD ORDERABLES Final Result [facility] [address] * (ABNORMAL) CBC, STAT (10/28/2024 8:04 PM EDT) WBC 3.9 3.8 - 10.8 10E3/uL 10/28/2024 8:36 PM EDT [facility] RBC 2.66(L) 4.20 - 5.80 10E6/uL 10/28/2024 8:36 PM EDT [facility] Hemoglobin 8.0(L) 13.2 - 17.1 g/dL 10/28/2024 8:36 PM EDT [facility] Hematocrit 23.0(L) 38.5 - 50.0 % 10/28/2024 8:36 PM EDT [facility] MCV 86.4 80.0 - 100.0 fL 10/28/2024 8:36 PM EDT [facility] MCH 29.9 27.0 - 33.0 pg 10/28/2024 8:36 PM EDT [facility] MCHC 34.6 32.0 - 36.0 g/dL 10/28/2024 8:36 PM EDT [facility] RDW 18.6(H) 11.0 - 15.0 % 10/28/2024 8:36 PM EDT [facility] Platelets 29(L) 140 - 400 10E3/uL 10/28/2024 8:36 PM EDT [facility] Comment: CNV Specimen checked for clots. None detected. MPV 7.8 7.5 - 11.5 fL 10/28/2024 8:36 PM EDT [facility] Whole Blood 10/28/2024 8:04 PM EDT 10/28/2024 8:14 PM EDT us Carlos Marks MD LAB BLOOD ORDERABLES Final Result Performing Organization Address City/State/[facility] Co de Phone Number [facility] [address] * (ABNORMAL) POC Glucose Monitoring Device (10/28/2024 8:03 PM EDT) POC Glucose Monitoring Device 122(H) 70 - 100 mg/dL 10/28/2024 8:04 PM EDT [facility] Blood 10/28/2024 8:03 PM EDT 10/28/2024 8:04 PM EDT Semaj Mcnair III, MD POINT OF CARE TEST ORDERABLES Final Result [facility] [address] * (ABNORMAL) TEG-Bypass/ECMO/Liver HN (Factor function, Platelet/Fibrin Clot Strength w/Clot Breakdown, Heparinase In All Channels) (10/28/2024 6:39 PM EDT) Citrated Kaolin Reaction Time (TEGECMOLIVER) 9.0 4.6 - 9.1 minutes 10/28/2024 7:50 PM EDT [facility] Citrated Kaolin W/Heparinase Reaction Time (TEGECMOLIVER) 8.3 4.3 - 8.3 minutes 10/28/2024 7:50 PM EDT [facility] Citrated Kaolin Maximum Amplitude (TEGECMOLIVER) 47.6(L) 52.0 - 69.0 mm 10/28/2024 7:50 PM EDT [facility] Citrated Functional Fibrinogen W/Heparinase Maximum Amplitude(TEGEC MOLIVER) 20.4 15.0 - 34.0 mm 10/28/2024 7:50 PM EDT [facility] Citrated Rapid Teg W/Heparinase Maximum Amplitude (TEGECMOLIVER) 44.0(L) 53.0 - 69.0 mm 10/28/2024 7:50 PM EDT [facility] Citrated Kaolin w/Heparinase Percent Lysis (TEGECMOLIVER) 0.0 0.0 - 3.2 % 10/28/2024 7:50 PM EDT [facility] Whole Blood (Citrate) 10/28/2024 6:39 PM EDT 10/28/2024 6:42 PM EDT Kemar Sahni MD LAB BLOOD ORDERABLES Final Result [facility] [address] * (ABNORMAL) POC Glucose Monitoring Device (10/28/2024 5:31 PM EDT) POC Glucose Monitoring Device 130(H) 70 - 100 mg/dL 10/28/2024 5:31 PM EDT [facility] Blood 10/28/2024 5:31 PM EDT 10/28/2024 5:31 PM EDT Semaj Mcnair III, MD POINT OF CARE TEST ORDERABLES Final Result Performing Organization Address [facility] Co de Phone Number [facility] [address] * Transfuse RBC Transfusion Rate: Per dept routine (10/28/2024 5:23 PM EDT) Shay Plata MD NURSING TREATMENT OR DERABLES - BLOOD ADMIN Final Result Performing Organization Address [facility] [[email or web address]] de Phone Number EXTERNAL * Transfuse RBC Transfusion Rate: Per dept routine, 1 Units (10/28/2024 5:23 PM EDT) Shay Plata MD NURSING TREATMENT OR DERABLES - BLOOD ADMIN Final Result Performing Organization Address [facility] [[email or web address]] de Phone Number EXTERNAL * US Abdomen [...] EXAM: US ABDOMEN LIMITED EXAM: US DUPLEX [id number] COMPLETE INDICATION: Post-op liver transplant DATE: 10/28/2024 [...] retrohepatic inferior vena cava is patent. The [place] right kidney is partially visualized. A prominent [...] EXAM: US ABDOMEN LIMITED EXAM: US DUPLEX [id number] COMPLETE INDICATION: Post-op liver transplant DATE: 10/28/2024 [...] retrohepatic inferior vena cava is patent. The [place] right kidney is partially visualized. A prominent [...] 10/28/2024 4:42 PM EDT Shay Plata MD [facility] US ORDERABLES Fi nal Result * US Duplex Iiv-Rlj-Uhetoxd Comp (10/28/2024 4:23 PM EDT) Anatomical Region [...] EXAM: US ABDOMEN LIMITED EXAM: US DUPLEX [id number] COMPLETE INDICATION: Post-op liver transplant DATE: 10/28/2024 [...] retrohepatic inferior vena cava is patent. The [place] right kidney is partially visualized. A prominent [...] EXAM: US ABDOMEN LIMITED EXAM: US DUPLEX [id number] COMPLETE INDICATION: Post-op liver transplant DATE: 10/28/2024 [...] retrohepatic inferior vena cava is patent. The [place] right kidney is partially visualized. A prominent [...] PM EDT us Shay Plata MD [facility] US ORDERABLES Fi nal Result * (ABNORMAL) CBC, STAT (10/28/2024 2:49 PM EDT) WBC 4.0 3.8 - 10.8 10E3/uL 10/28/2024 3:07 PM EDT [facility] RBC 2.44(L) 4.20 - 5.80 10E6/uL 10/28/2024 3:07 PM EDT [facility] Hemoglobin 7.5(L) 13.2 - 17.1 g/dL 10/28/2024 3:07 PM EDT [facility] Hematocrit 21.4(L) 38.5 - 50.0 % 10/28/2024 3:07 PM EDT [facility] MCV 87.6 80.0 - 100.0 fL 10/28/2024 3:07 PM EDT [facility] MCH 30.6 27.0 - 33.0 pg 10/28/2024 3:07 PM EDT [facility] MCHC 34.9 32.0 - 36.0 g/dL 10/28/2024 3:07 PM EDT [facility] RDW 18.4(H) 11.0 - 15.0 % 10/28/2024 3:07 PM EDT [facility] Platelets 30(L) 140 - 400 10E3/uL 10/28/2024 3:07 PM EDT [facility] Comment: CNV Specimen checked for clots. None detected. MPV 7.7 7.5 - 11.5 fL 10/28/2024 3:07 PM EDT [facility] Whole Blood 10/28/2024 2:49 PM EDT 10/28/2024 2:53 PM EDT us Carlos Marks MD LAB BLOOD ORDERABLES Final Result [facility] [address] * ECG 12 lead (MUSE) (10/28/2024 1:22 PM EDT) 10/28/2024 1:22 PM EDT Narrative MUSE - 10/29/2024 10:34 PM EDT Ventricular Rate: 104 BPM Atrial Rate: 104 BPM P-R Interval: 172 ms QRS Duration: 90 ms QT: 354 ms QTc: 465 ms P Henderson: 58 degrees R Henderson: -19 degrees T Henderson: 38 degrees Diagnosis Line: SINUS TACHYCARDIA ^ OTHERWISE NORMAL ECG ^ ^ Confirmed by JORGE MACIAS ([id number]) on 10/29/2024 10:34:22 PM us Hillary Yanqui PharmD ECG ORDERABLES Final Res ult Performing Organization Address City/[facility] Co de Phone Number MUSE * (ABNORMAL) POC Glucose Monitoring Device (10/28/2024 12:54 PM EDT) POC Glucose Monitoring Device 119(H) 70 - 100 mg/dL 10/28/2024 12:55 PM EDT [facility] Blood 10/28/2024 12:5 4 PM EDT 10/28/2024 12:55 PM EDT us Semaj Mcnair III, MD POINT OF CARE TEST ORDERABLES Final Result Performing Organization Address [facility] Co de Phone Number [facility] [address] * Transfuse RBC Transfusion Rate: Per dept routine (10/28/2024 12:31 PM EDT) us Carlos Marks MD NURSING TREATMENT ORDERABLE S - BLOOD ADMIN Final Result Performing Organization Address City/[facility] Co de Phone Number EXTERNAL * Transfuse RBC Transfusion Rate: Per dept routine, 1 Units (10/28/2024 12:31 PM EDT) us Carlos Marks MD NURSING TREATMENT ORDERABLE S - BLOOD ADMIN Final Result Performing Organization Address [facility] [[email or web address]] de Phone Number EXTERNAL * Protime-INR, STAT (10/28/2024 11:09 AM EDT) Protime 14.3 12.1 - 15.1 seconds 10/28/2024 11:29 AM EDT [facility] INR 1.1 0.9 - 1.1 10/28/2024 11:29 AM EDT [facility] Comment: RECOMMENDED THERAPEUTIC RANGES USING INR : Stable oral anticoagulant therapy: 2.0 - 3.0 Mechanical prosthetic heart valve: 2.5 - 3.5 Recurrent acute myocardial infarction: 2.5 - 3.5 Plasma 10/28/2024 11:0 9 AM EDT 10/28/2024 11:16 AM EDT us Carlos Marks MD LAB BLOOD ORDERABLES Final Result Performing Organization Address [facility]/ZIP Co de Phone Number [facility] [address] [facility]. [address] * (ABNORMAL) Lactic Acid, STAT (10/28/2024 11:09 AM EDT) Lactate 0.3(L) 0.5 - 2.2 mmol/L 10/28/2024 11:37 AM EDT [facility] Plasma 10/28/2024 11:0 9 AM EDT 10/28/2024 11:15 AM EDT us Carlos Marks MD LAB BLOOD ORDERABLES Final Result Performing Organization Address [facility] Co de Phone Number [facility] [address] [facility]. [address] * Magnesium, STAT (10/28/2024 11:09 AM EDT) Magnesium 2.1 1.5 - 2.5 mg/dL 10/28/2024 11:47 AM EDT [facility] Plasma 10/28/2024 11:0 9 AM EDT 10/28/2024 11:16 AM EDT us Carlos Marks MD LAB BLOOD ORDERABLES Final Result Performing Organization Address City/[facility]/ZIP Co de Phone Number [facility] [address] [facility]. [address] * (ABNORMAL) Renal Function Panel w/EGFR, STAT (10/28/2024 11:09 AM EDT) Sodium 144 133 - 146 mmol/L 10/28/2024 11:47 AM EDT [facility] Potassium 3.4(L) 3.5 - 5.3 mmol/L 10/28/2024 11:47 AM EDT [facility] Chloride 112(H) 98 - 110 mmol/L 10/28/2024 11:47 AM EDT [facility] CO2 22 21 - 33 mmol/L 10/28/2024 11:47 AM EDT [facility] Anion Gap 10 3 - 16 mmol/L 10/28/2024 11:47 AM EDT [facility] BUN 57(H) 7 - 25 mg/dL 10/28/2024 11:47 AM EDT [facility] Creatinine 2.01(H) 0.60 - 1.30 mg/dL 10/28/2024 11:47 AM EDT [facility] Glucose 108(H) 70 - 100 mg/dL 10/28/2024 11:47 AM EDT [facility] Calcium 8.8 8.6 - 10.3 mg/dL 10/28/2024 11:47 AM EDT [facility] Phosphorus 4.0 2.1 - 4.7 mg/dL 10/28/2024 11:47 AM EDT [facility] Albumin 3.3(L) 3.5 - 5.7 g/dL 10/28/2024 11:47 AM EDT [facility] Osmolality, Calculated 314(H) 278 - 305 mOsm/kg 10/28/2024 11:47 AM EDT [facility] EGFR 42 10/28/2024 11:47 AM EDT [facility] Comment:As [...] MD LAB BLOOD ORDERABLES Final Result [facility] [address] * (ABNORMAL) TEG-Bypass/ECMO/Liver HN (Factor function, Platelet/Fibrin Clot Strength w/Clot Breakdown, Heparinase In All Channels) (10/28/2024 11:09 AM EDT) Citrated Kaolin Reaction Time (TEGECMOLIVER) 9.2(H) 4.6 - 9.1 minutes 10/28/2024 12:30 PM EDT [facility] Citrated Kaolin W/Heparinase Reaction Time (TEGECMOLIVER) 9.6(H) 4.3 - 8.3 minutes 10/28/2024 12:30 PM EDT [facility] Citrated Kaolin Maximum Amplitude (TEGECMOLIVER) 51.2(L) 52.0 - 69.0 mm 10/28/2024 12:30 PM EDT [facility] Citrated Functional Fibrinogen W/Heparinase Maximum Amplitude(TEGEC MOLIVER) 21.6 15.0 - 34.0 mm 10/28/2024 12:30 PM EDT [facility] Citrated Rapid Teg W/Heparinase Maximum Amplitude (TEGECMOLIVER) 49.3(L) 53.0 - 69.0 mm 10/28/2024 12:30 PM EDT [facility] Citrated Kaolin w/Heparinase Percent Lysis (TEGECMOLIVER) 0.0 0.0 - 3.2 % 10/28/2024 12:30 PM EDT [facility] Whole Blood (Citrate) 10/28/2024 11:09 AM EDT 10/28/2024 11:14 AM EDT us Kemar Sahni MD LAB BLOOD ORDERABLES Final Result [facility] [address] [facility]. [address] * (ABNORMAL) CBC (10/28/2024 10:21 AM EDT) WBC 4.1 3.8 - 10.8 10E3/uL 10/28/2024 10:41 AM EDT [facility] RBC 2.30(L) 4.20 - 5.80 10E6/uL 10/28/2024 10:41 AM EDT [facility] Hemoglobin 7.1(L) 13.2 - 17.1 g/dL 10/28/2024 10:41 AM EDT [facility] Hematocrit 20.4(L) 38.5 - 50.0 % 10/28/2024 10:41 AM EDT [facility] MCV 88.5 80.0 - 100.0 fL 10/28/2024 10:41 AM EDT [facility] MCH 30.7 27.0 - 33.0 pg 10/28/2024 10:41 AM EDT [facility] MCHC 34.7 32.0 - 36.0 g/dL 10/28/2024 10:41 AM EDT [facility] RDW 18.7(H) 11.0 - 15.0 % 10/28/2024 10:41 AM EDT [facility] Platelets 37(L) 140 - 400 10E3/uL 10/28/2024 10:41 AM EDT [facility] Comment: CNV Specimen checked for clots. None detected. MPV 7.6 7.5 - 11.5 fL 10/28/2024 10:41 AM EDT [facility] Whole Blood 10/28/2024 10:2 1 AM EDT 10/28/2024 10:29 AM EDT us Carlos Marks MD LAB BLOOD ORDERABLES Final Result Performing Organization Address City/State/[facility] Co de Phone Number [facility] [address] [place] [id number] * POC Glucose Monitoring Device (10/28/2024 9:07 AM EDT) [facility] POC Glucose Monitoring Device 97 70 - 100 mg/dL 10/28/2024 9:08 AM EDT [facility] Blood 10/28/2024 9:0 7 AM EDT 10/28/2024 9:08 AM EDT us Semaj Mcnair III, MD POINT OF CARE TEST ORDERABLES Final Result Performing Organization Address City/[facility] Co de Phone Number [facility] [address] * (ABNORMAL) Tacrolimus level (10/28/2024 8:20 AM EDT) Pathologist [facility] Tacrolimus (LC-MS) <1.0(L) 3.0 - 15.0 ng/mL 10/28/2024 2:02 PM EDT [facility] Comment:Performed via liquid chromatography tandem mass spectrometry. Detection limit: 1 ng/mL. Individual target concentrations may vary due to target organ and time after transplant. This test has been developed and its performance characteristics determined by [facility] which is certified under the [...] EDT 10/28/2024 8:29 AM EDT Priti Geiger [facility] LAB BLOOD ORDERABLES Final Re sult Performing Organization Address [facility] Co de Phone Number [facility] [address] [facility]. [address] * (ABNORMAL) POC Glucose Monitoring Device (10/28/2024 8:10 AM EDT) Pathologist [facility] POC Glucose Monitoring Device 102(H) 70 - 100 mg/dL 10/28/2024 8:11 AM EDT [facility] Blood 10/28/2024 8:10 AM EDT 10/28/2024 8:11 AM EDT Semaj Mcnair III, MD POINT OF CARE TEST ORDERABLES Final Result Performing Organization Address City/[facility] Co de Phone Number [facility] [address] * POC Glucose Monitoring Device (10/28/2024 6:17 AM EDT) POC Glucose Monitoring Device 100 70 - 100 mg/dL 10/28/2024 6:18 AM EDT [facility] Blood 10/28/2024 6:17 AM EDT 10/28/2024 6:18 AM EDT Semaj Mcnair III, MD POINT OF CARE TEST ORDERABLES Final Result Performing Organization Address City/[facility]/ZIP Co de Phone Number [facility] [address] * Prepare Platelets, leukoreduced (10/28/2024 6:15 AM EDT) Product Code J8642M56 HCLL Unit Number [id number] HCLL Dispense Status Presumed Transfused_PT HCLL Blood Expiration Date HCLL Coding System [id number] HCLL Product Code W3468G56 HCLL Unit Number [id number] HCLL Dispense Status Presumed Transfused_PT HCLL Blood Expiration Date HCLL Coding System [id number] HCLL us Attending Provider Unknown BLOOD BANK PRODUCT OR DERABLES Final Result Performing Organization Address [facility]/ZIP Co de Phone Number HCLL * Prepare Fresh Frozen Plasma (10/28/2024 6:15 AM EDT) Product Code N5987L84 HCLL Unit Number [id number] HCLL Dispense Status Released from Crossmatch_RE HCLL Blood Expiration Date HCLL Coding System [id number] HCLL Product Code J6143O28 HCLL Unit Number [id number] HCLL Dispense Status Presumed Transfused_PT HCLL Blood Expiration Date HCLL Coding System GHTU550 HCLL Product Code Z6043T30 HCLL Unit Number [id number] HCLL Dispense Status Released from Crossmatch_RE HCLL Blood Expiration Date HCLL Coding System AXQB410 HCLL Product Code V5624U19 HCLL Unit Number [id number] HCLL Dispense Status Presumed Transfused_PT HCLL Blood Expiration Date HCLL Coding System ETGK690 HCLL Product Code W1656N38 HCLL Unit Number [id number] HCLL Dispense Status Released from Crossmatch_RE HCLL Blood Expiration Date [id number] HCLL Coding System [id number] HCLL us Attending Provider Unknown BLOOD BANK PRODUCT OR DERABLES Final Result HCLL * Prepare RBC, leukoreduced (10/28/2024 6:15 AM EDT) Product Code C9843M47 HCLL Unit Number [id number] HCLL Dispense Status Released from Crossmatch_RE HCLL Blood Expiration Date [id number] HCLL Coding System ORAD685 HCLL Product Code Q4803U80 HCLL Unit Number [id number] HCLL Dispense Status Presumed Transfused_PT HCLL Blood Expiration Date [id number] HCLL Coding System VJUK496 HCLL Product Code V0242C28 HCLL Unit Number [id number] HCLL Dispense Status Released from Crossmatch_RE HCLL Blood Expiration Date 649047161084 HCLL Coding System KWIA700 HCLL Product Code Z8665I52 HCLL Unit Number [id number] HCLL Dispense Status Presumed Transfused_PT HCLL Blood Expiration Date 944080128800 HCLL Coding System MDVX264 HCLL Product Code N7519O80 HCLL Unit Number [id number] HCLL Dispense Status Released from Crossmatch_RE HCLL Blood Expiration Date HCLL Coding System [id number] HCLL us Attending Provider Unknown BLOOD BANK PRODUCT OR DERABLES Final Result HCLL * Prepare Platelets, leukoreduced, 1 Units (10/28/2024 6:15 AM EDT) Product Code I0258V32 HCLL Unit Number [id number] HCLL Dispense Status Presumed Transfused_PT HCLL Blood Expiration Date 113810439793 HCLL Coding System DUCH894 HCLL Blood Bank Product John Pina MD BLOOD BANK PRODUCT ORDERABLES F inal Result Performing Organization Address [facility] Co de Phone Number HCLL * Prepare Cryoprecipitate, 1 Units (10/28/2024 6:15 AM EDT) Product Code E5537J47 HCLL Unit Number [id number] HCLL Dispense Status Presumed Transfused_PT HCLL Blood Expiration Date HCLL Coding System ROYU895 HCLL Product Code W2923X31 HCLL Unit Number [id number] HCLL Dispense Status Presumed Transfused_PT HCLL Blood Expiration Date 380493701027 HCLL Coding System RFBU807 HCLL Blood Bank Product John Pina MD BLOOD BANK PRODUCT ORDERABLES F inal Result Performing Organization Address [facility] Co de Phone Number HCLL * Prepare Fresh Frozen Plasma, 1 Units (10/28/2024 6:15 AM EDT) Product Code I7863C27 HCLL Unit Number [id number] HCLL Dispense Status Presumed Transfused_PT HCLL Blood Expiration Date 113337578318 HCLL Coding System YSMB976 HCLL Blood Bank Product John Pina MD BLOOD BANK PRODUCT ORDERABLES F inal Result Performing Organization Address [facility] Co de Phone Number HCLL * Prepare Cryoprecipitate, 1 Units (10/28/2024 6:15 AM EDT) Product Code E6418A57 HCLL Unit Number [id number] HCLL Dispense Status Presumed Transfused_PT HCLL Blood Expiration Date HCLL Coding System HGXY877 HCLL Product Code H1860C61 HCLL Unit Number [id number] HCLL Dispense Status Presumed Transfused_PT HCLL Blood Expiration Date HCLL Coding System RFZF360 HCLL Product Code F9289Z68 HCLL Unit Number [id number] HCLL Dispense Status Presumed Transfused_PT HCLL Blood Expiration Date HCLL Coding System ADDT176 HCLL Product Code Y8144M67 HCLL Unit Number [id number] HCLL Dispense Status Presumed Transfused_PT HCLL Blood Expiration Date HCLL Coding System VHWQ739 HCLL Blood Bank Product John Pina MD BLOOD BANK PRODUCT ORDERABLES F inal Result HCLL * (ABNORMAL) POC Glucose Monitoring Device (10/28/2024 4:55 AM EDT) [facility] POC Glucose Monitoring Device 104(H) 70 - 100 mg/dL 10/28/2024 4:57 AM EDT [facility] Blood 10/28/2024 4:55 AM EDT 10/28/2024 4:57 AM EDT Semaj Mcnair III, MD POINT OF CARE TEST ORDERABLES Final Result [facility] [address] [place] [address] * TEG-Bypass/ECMO/Liver HN (Factor function, Platelet/Fibrin Clot Strength w/Clot Breakdown, Heparinase In All Channels) (10/28/2024 4:13 AM EDT) Pathologist [facility] Citrated Kaolin Reaction Time (TEGECMOLIVER) 7.2 4.6 - 9.1 minutes 10/28/2024 5:38 AM EDT [facility] Citrated Kaolin W/Heparinase Reaction Time (TEGECMOLIVER) 7.8 4.3 - 8.3 minutes 10/28/2024 5:38 AM EDT [facility] Citrated Kaolin Maximum Amplitude (TEGECMOLIVER) 53.0 52.0 - 69.0 mm 10/28/2024 5:38 AM EDT [facility] Citrated Functional Fibrinogen W/Heparinase Maximum Amplitude(TEGEC MOLIVER) 21.4 15.0 - 34.0 mm 10/28/2024 5:38 AM EDT [facility] Citrated Rapid Teg W/Heparinase Maximum Amplitude (TEGECMOLIVER) 54.7 53.0 - 69.0 mm 10/28/2024 5:38 AM EDT [facility] Citrated Kaolin w/Heparinase Percent Lysis (TEGECMOLIVER) 0.0 0.0 - 3.2 % 10/28/2024 5:38 AM EDT [facility] Whole Blood (Citrate) 10/28/2024 4:13 AM EDT 10/28/2024 4:28 AM EDT Kemar Sahni MD LAB BLOOD ORDERABLES Final Result [facility] [address] * Protime-INR (10/28/2024 4:13 AM EDT) Protime 14.6 12.1 - 15.1 seconds 10/28/2024 4:53 AM EDT [facility] INR 1.1 0.9 - 1.1 10/28/2024 4:53 AM EDT [facility] Comment: RECOMMENDED THERAPEUTIC RANGES USING INR : Stable oral anticoagulant therapy: 2.0 - 3.0 Mechanical prosthetic heart valve: 2.5 - 3.5 Recurrent acute myocardial infarction: 2.5 - 3.5 Plasma 10/28/2024 4:13 AM EDT 10/28/2024 4:41 AM EDT Kemar Sahni MD LAB BLOOD ORDERABLES Final Result [facility] [address] * Magnesium (10/28/2024 4:13 AM EDT) Magnesium 2.2 1.5 - 2.5 mg/dL 10/28/2024 5:15 AM EDT [facility] Plasma 10/28/2024 4:13 AM EDT 10/28/2024 4:41 AM EDT Kemar Sahni MD LAB BLOOD ORDERABLES Final Result Performing Organization Address City/[facility] Co de Phone Number [facility] [address] [facility] * (ABNORMAL) Hepatic Function Panel (10/28/2024 4:13 AM EDT) Total Bilirubin 2.3(H) 0.0 - 1.5 mg/dL 10/28/2024 5:15 AM EDT [facility] Bilirubin, Direct 1.67(H) 0.00 - 0.40 mg/dL 10/28/2024 5:15 AM EDT [facility] AST 44(H) 13 - 39 U/L 10/28/2024 5:15 AM EDT [facility] ALT 101(H) 7 - 52 U/L 10/28/2024 5:15 AM EDT [facility] Alkaline Phosphatase 26(L) 36 - 125 U/L 10/28/2024 5:15 AM EDT [facility] Total Protein 4.5(L) 6.4 - 8.9 g/dL 10/28/2024 5:15 AM EDT [facility] Albumin 3.1(L) 3.5 - 5.7 g/dL 10/28/2024 5:15 AM EDT [facility] Bilirubin, Indirect 0.63 0.00 - 1.10 mg/dL 10/28/2024 5:15 AM EDT [facility] Plasma 10/28/2024 4:13 AM EDT 10/28/2024 4:41 AM EDT Kemar Sahni MD LAB BLOOD ORDERABLES Final Result [facility] [address] [place] [address], [facility] * (ABNORMAL) Renal Function Panel w/EGFR (10/28/2024 4:13 AM EDT) Sodium 142 133 - 146 mmol/L 10/28/2024 5:15 AM EDT [facility] Potassium 3.5 3.5 - 5.3 mmol/L 10/28/2024 5:15 AM EDT [facility] Chloride 111(H) 98 - 110 mmol/L 10/28/2024 5:15 AM EDT [facility] CO2 22 21 - 33 mmol/L 10/28/2024 5:15 AM EDT [facility] Anion Gap 9 3 - 16 mmol/L 10/28/2024 5:15 AM EDT [facility] BUN 58(H) 7 - 25 mg/dL 10/28/2024 5:15 AM EDT [facility] Creatinine 2.24(H) 0.60 - 1.30 mg/dL 10/28/2024 5:15 AM EDT [facility] Glucose 103(H) 70 - 100 mg/dL 10/28/2024 5:15 AM EDT [facility] Calcium 9.1 8.6 - 10.3 mg/dL 10/28/2024 5:15 AM EDT [facility] Phosphorus 4.8(H) 2.1 - 4.7 mg/dL 10/28/2024 5:15 AM EDT [facility] Albumin 3.1(L) 3.5 - 5.7 g/dL 10/28/2024 5:15 AM EDT [facility] Osmolality, Calculated 310(H) 278 - 305 mOsm/kg 10/28/2024 5:15 AM EDT [facility] EGFR 37 10/28/2024 5:15 AM EDT [facility] Comment:As [...] MD LAB BLOOD ORDERABLES Final Result [facility] [address] * (ABNORMAL) CBC (10/28/2024 4:13 AM EDT) WBC 4.5 3.8 - 10.8 10E3/uL 10/28/2024 5:09 AM EDT [facility] RBC 2.39(L) 4.20 - 5.80 10E6/uL 10/28/2024 5:09 AM EDT [facility] Hemoglobin 7.3(L) 13.2 - 17.1 g/dL 10/28/2024 5:09 AM EDT [facility] Hematocrit 21.0(L) 38.5 - 50.0 % 10/28/2024 5:09 AM EDT [facility] MCV 87.8 80.0 - 100.0 fL 10/28/2024 5:09 AM EDT [facility] MCH 30.5 27.0 - 33.0 pg 10/28/2024 5:09 AM EDT [facility] MCHC 34.7 32.0 - 36.0 g/dL 10/28/2024 5:09 AM EDT [facility] RDW 18.7(H) 11.0 - 15.0 % 10/28/2024 5:09 AM EDT [facility] Platelets 38(L) 140 - 400 10E3/uL 10/28/2024 5:09 AM EDT [facility] Comment: CNV Specimen checked for clots. None detected. MPV 7.6 7.5 - 11.5 fL 10/28/2024 5:09 AM EDT [facility] Whole Blood 10/28/2024 4:13 AM EDT 10/28/2024 4:41 AM EDT Kemar Sahni MD LAB BLOOD ORDERABLES Final Result [facility] [address] [facility] * (ABNORMAL) POC Glucose Monitoring Device (10/28/2024 4:04 AM EDT) POC Glucose Monitoring Device 103(H) 70 - 100 mg/dL 10/28/2024 4:05 AM EDT [facility] Blood 10/28/2024 4:04 AM EDT 10/28/2024 4:05 AM EDT Semaj Mcnair III, MD POINT OF CARE TEST ORDERABLES Final Result Performing Organization Address [facility]/ZIP Co de Phone Number [facility] [address] [facility]. [address] * (ABNORMAL) POC Glucose Monitoring Device (10/28/2024 3:00 AM EDT) POC Glucose Monitoring Device 106(H) 70 - 100 mg/dL 10/28/2024 3:01 AM EDT [facility] Blood 10/28/2024 3:00 AM EDT 10/28/2024 3:01 AM EDT Semaj Mcnair III, MD POINT OF CARE TEST ORDERABLES Final Result [facility] [address] * (ABNORMAL) POC Glucose Monitoring Device (10/28/2024 2:32 AM EDT) POC Glucose Monitoring Device 109(H) 70 - 100 mg/dL 10/28/2024 2:33 AM EDT [facility] Blood 10/28/2024 2:32 AM EDT 10/28/2024 2:33 AM EDT Semaj Mcnair III, MD POINT OF CARE TEST ORDERABLES Final Result [facility] [address] [facility]. [address] * (ABNORMAL) POC Glucose Monitoring Device (10/28/2024 2:14 AM EDT) POC Glucose Monitoring Device 115(H) 70 - 100 mg/dL 10/28/2024 2:15 AM EDT [facility] Blood 10/28/2024 2:14 AM EDT 10/28/2024 2:15 AM EDT us Semaj Mcnair III, MD POINT OF CARE TEST ORDERABLES Final Result [facility] [address] [facility] * (ABNORMAL) POC Glucose Monitoring Device (10/28/2024 2:03 AM EDT) POC Glucose Monitoring Device 101(H) 70 - 100 mg/dL 10/28/2024 2:04 AM EDT [facility] Blood 10/28/2024 2:03 AM EDT 10/28/2024 2:04 AM EDT us Semaj Mcnair III, MD POINT OF CARE TEST ORDERABLES Final Result [facility] [address] [facility]. [address] * Transfuse RBC Transfusion Rate: Per [...] In All Channels) (10/28/2024 12:05 AM EDT) [facility] Kaolin Reaction Time (TEGECMOLIVER) 7.5 4.6 - 9.1 minutes 10/28/2024 1:22 AM EDT [facility] Citrated Kaolin W/Heparinase Reaction Time (TEGECMOLIVER) 7.7 4.3 - 8.3 minutes 10/28/2024 1:22 AM EDT [facility] Kaolin Maximum Amplitude (TEGECMOLIVER) 54.4 52.0 - 69.0 mm 10/28/2024 1:22 AM EDT [facility] Functional Fibrinogen W/Heparinase Maximum Amplitude(TEGEC MOLIVER) 20.4 15.0 - 34.0 mm 10/28/2024 1:22 AM EDT [facility] Rapid Teg W/Heparinase Maximum Amplitude (TEGECMOLIVER) 51.0(L) 53.0 - 69.0 mm 10/28/2024 1:22 AM EDT [facility] Citrated Kaolin w/Heparinase Percent Lysis (TEGECMOLIVER) 0.0 0.0 - 3.2 % 10/28/2024 1:22 AM EDT [facility] Whole Blood (Citrate) 10/28/2024 12:05 AM EDT 10/28/2024 12:09 AM EDT Kemar Sahni MD LAB BLOOD ORDERABLES Final Result [facility] [address] [facility]. [address] * Magnesium (10/28/2024 12:05 AM EDT) Magnesium 2.2 1.5 - 2.5 mg/dL 10/28/2024 1:59 AM EDT [facility] Plasma 10/28/2024 12:0 5 AM EDT 10/28/2024 12:11 AM EDT Kemar Sahni MD LAB BLOOD ORDERABLES Final Result Performing Organization Address City/[facility]/ZIP Co de Phone Number [facility] [address] [facility] [facility] [address] * (ABNORMAL) Renal Function Panel w/EGFR (10/28/2024 12:05 AM EDT) Sodium 144 133 - 146 mmol/L 10/28/2024 1:59 AM EDT [facility] Potassium 3.4(L) 3.5 - 5.3 mmol/L 10/28/2024 1:59 AM EDT [facility] Chloride 112(H) 98 - 110 mmol/L 10/28/2024 1:59 AM EDT [facility] CO2 19(L) 21 - 33 mmol/L 10/28/2024 1:59 AM EDT [facility] Anion Gap 13 3 - 16 mmol/L 10/28/2024 1:59 AM EDT [facility] BUN 59(H) 7 - 25 mg/dL 10/28/2024 1:59 AM EDT [facility] Creatinine 2.42(H) 0.60 - 1.30 mg/dL 10/28/2024 1:59 AM EDT [facility] Glucose 118(H) 70 - 100 mg/dL 10/28/2024 1:59 AM EDT [facility] Calcium 9.0 8.6 - 10.3 mg/dL 10/28/2024 1:59 AM EDT [facility] Phosphorus 5.3(H) 2.1 - 4.7 mg/dL 10/28/2024 1:59 AM EDT [facility] Albumin 3.1(L) 3.5 - 5.7 g/dL 10/28/2024 1:59 AM EDT [facility] Osmolality, Calculated 316(H) 278 - 305 mOsm/kg 10/28/2024 1:59 AM EDT [facility] EGFR 34 10/28/2024 1:59 AM EDT [facility] Comment:As [...] MD LAB BLOOD ORDERABLES Final Result [facility] [address] [id number] * (ABNORMAL) Differential (10/28/2024 12:05 AM EDT) Neutrophils Relative 88.6(H) 40.0 - 80.0 % 10/28/2024 12:41 AM EDT [facility] Lymphocytes Relative 2.5(L) 15.0 - 45.0 % 10/28/2024 12:41 AM EDT [facility] Monocytes Relative 6.1 0.0 - 12.0 % 10/28/2024 12:41 AM EDT [facility] Eosinophils Relative 2.4 0.0 - 8.0 % 10/28/2024 12:41 AM EDT [facility] Basophils Relative 0.4 0.0 - 1.0 % 10/28/2024 12:41 AM EDT [facility] nRBC 0 0 - 0 /100 WBC 10/28/2024 12:41 AM EDT [facility] Neutrophils Absolute 4,341 1,520 - 8,640 /uL 10/28/2024 12:41 AM EDT [facility] Lymphocytes Absolute 123(L) 570 - 4,860 /uL 10/28/2024 12:41 AM EDT [facility] Monocytes Absolute 299 0 - 1,296 /uL 10/28/2024 12:41 AM EDT [facility] Eosinophils Absolute 118 0 - 864 /uL 10/28/2024 12:41 AM EDT [facility] Basophils Absolute 20 0 - 108 /uL 10/28/2024 12:41 AM EDT [facility] Whole Blood 10/28/2024 12:0 5 AM EDT 10/28/2024 12:11 AM EDT Kemar Sahni MD LAB BLOOD ORDERABLES Final Result [facility] [address] * (ABNORMAL) CBC (10/28/2024 12:05 AM EDT) WBC 4.9 3.8 - 10.8 10E3/uL 10/28/2024 12:41 AM EDT [facility] RBC 2.18(L) 4.20 - 5.80 10E6/uL 10/28/2024 12:41 AM EDT [facility] Hemoglobin 6.7(L) 13.2 - 17.1 g/dL 10/28/2024 12:41 AM EDT [facility] Hematocrit 19.2(L) 38.5 - 50.0 % 10/28/2024 12:41 AM EDT [facility] MCV 87.8 80.0 - 100.0 fL 10/28/2024 12:41 AM EDT [facility] MCH 30.6 27.0 - 33.0 pg 10/28/2024 12:41 AM EDT [facility] MCHC 34.8 32.0 - 36.0 g/dL 10/28/2024 12:41 AM EDT [facility] RDW 19.6(H) 11.0 - 15.0 % 10/28/2024 12:41 AM EDT [facility] Platelets 45(L) 140 - 400 10E3/uL 10/28/2024 12:41 AM EDT [facility] Comment: CNV Specimen checked for clots. None detected. MPV 7.8 7.5 - 11.5 fL 10/28/2024 12:41 AM EDT [facility] Whole Blood 10/28/2024 12:0 5 AM EDT 10/28/2024 12:11 AM EDT Kemar Sahni MD LAB BLOOD ORDERABLES Final Result Performing Organization Address City/[facility] Co de Phone Number [facility] [address] * (ABNORMAL) POC Glucose Monitoring Device (10/28/2024 12:03 AM EDT) POC Glucose Monitoring Device 122(H) 70 - 100 mg/dL 10/28/2024 12:04 AM EDT [facility] Blood 10/28/2024 12:0 3 AM EDT 10/28/2024 12:04 AM EDT Semaj Mcnair III, MD POINT OF CARE TEST ORDERABLES Final Result [facility] [address] * (ABNORMAL) POC Glucose Monitoring Device (10/27/2024 10:03 PM EDT) POC Glucose Monitoring Device 127(H) 70 - 100 mg/dL 10/27/2024 10:03 PM EDT [facility] Blood 10/27/2024 10:0 3 PM EDT 10/27/2024 10:03 PM EDT us Semaj Mcnair III, MD POINT OF CARE TEST ORDERABLES Final Result Performing Organization Address City/[facility]/ZIP Co de Phone Number [facility] [address] [facility]. [address] * (ABNORMAL) POC Glucose Monitoring Device (10/27/2024 8:06 PM EDT) POC Glucose Monitoring Device 128(H) 70 - 100 mg/dL 10/27/2024 8:45 PM EDT [facility] Blood 10/27/2024 8:06 PM EDT 10/27/2024 8:45 PM EDT us Semaj Mcnair III, MD POINT OF CARE TEST ORDERABLES Final Result Performing Organization Address City/[facility] Co de Phone Number [facility] [address] [facility]. [address] * (ABNORMAL) POC Glucose Monitoring Device (10/27/2024 6:00 PM EDT) POC Glucose Monitoring Device 128(H) 70 - 100 mg/dL 10/27/2024 6:00 PM EDT [facility] Blood 10/27/2024 6:00 PM EDT 10/27/2024 6:00 PM EDT Semaj Mcnair III, MD POINT OF CARE TEST ORDERABLES Final Result Performing Organization Address City/[facility] Co de Phone Number [facility] [address] [facility]. [address] * Lactic Acid, STAT (10/27/2024 5:41 PM EDT) Lactate 0.5 0.5 - 2.2 mmol/L 10/27/2024 6:28 PM EDT [facility] Plasma 10/27/2024 5:41 PM EDT 10/27/2024 5:49 PM EDT Narrative [facility]ALTH [facility] - 10/27/2024 6:28 PM EDT Redraw John Moreno MD LAB BLOOD ORDERABLES Final R esult [facility] [address] * (ABNORMAL) Hepatic Function Panel, STAT (10/27/2024 5:13 PM EDT) Total Bilirubin 1.7(H) 0.0 - 1.5 mg/dL 10/27/2024 5:50 PM EDT [facility] Bilirubin, Direct 1.17(H) 0.00 - 0.40 mg/dL 10/27/2024 5:50 PM EDT [facility] AST 60(H) 13 - 39 U/L 10/27/2024 5:50 PM EDT [facility] ALT 134(H) 7 - 52 U/L 10/27/2024 5:50 PM EDT [facility] Alkaline Phosphatase 27(L) 36 - 125 U/L 10/27/2024 5:50 PM EDT [facility] Total Protein 4.1(L) 6.4 - 8.9 g/dL 10/27/2024 5:50 PM EDT [facility] Albumin 2.9(L) 3.5 - 5.7 g/dL 10/27/2024 5:50 PM EDT [facility] Bilirubin, Indirect 0.53 0.00 - 1.10 mg/dL 10/27/2024 5:50 PM EDT [facility] Plasma 10/27/2024 5:13 PM EDT 10/27/2024 5:23 PM EDT us Shay Plata MD LAB BLOOD ORDERABLES Final Result [facility] [address] [place] [address], [facility] * (ABNORMAL) TEG-Bypass/ECMO/Liver HN (Factor function, Platelet/Fibrin Clot Strength w/Clot Breakdown, Heparinase In All Channels) (10/27/2024 5:13 PM EDT) Citrated Kaolin Reaction Time (TEGECMOLIVER) 8.0 4.6 - 9.1 minutes 10/27/2024 6:56 PM EDT [facility] Citrated Kaolin W/Heparinase Reaction Time (TEGECMOLIVER) 6.8 4.3 - 8.3 minutes 10/27/2024 6:56 PM EDT [facility] Citrated Kaolin Maximum Amplitude (TEGECMOLIVER) 55.4 52.0 - 69.0 mm 10/27/2024 6:56 PM EDT [facility] Citrated Functional Fibrinogen W/Heparinase Maximum Amplitude(TEGEC MOLIVER) 22.9 15.0 - 34.0 mm 10/27/2024 6:56 PM EDT [facility] Citrated Rapid Teg W/Heparinase Maximum Amplitude (TEGECMOLIVER) 50.8(L) 53.0 - 69.0 mm 10/27/2024 6:56 PM EDT [facility] Citrated Kaolin w/Heparinase Percent Lysis (TEGECMOLIVER) 0.1 0.0 - 3.2 % 10/27/2024 6:56 PM EDT [facility] Whole Blood (Citrate) 10/27/2024 5:13 PM EDT 10/27/2024 5:20 PM EDT Kemar Sahni MD LAB BLOOD ORDERABLES Final Result Performing Organization Address City/State/[facility] Co de Phone Number [facility] [address] * (ABNORMAL) Protime-INR (10/27/2024 5:13 PM EDT) Protime 15.2(H) 12.1 - 15.1 seconds 10/27/2024 5:40 PM EDT [facility] INR 1.1 0.9 - 1.1 10/27/2024 5:40 PM EDT [facility] Comment: RECOMMENDED THERAPEUTIC RANGES USING INR : Stable oral anticoagulant therapy: 2.0 - 3.0 Mechanical prosthetic heart valve: 2.5 - 3.5 Recurrent acute myocardial infarction: 2.5 - 3.5 Plasma 10/27/2024 5:13 PM EDT 10/27/2024 5:23 PM EDT Kemar Sahni MD LAB BLOOD ORDERABLES Final Result [facility] [address] * Magnesium (10/27/2024 5:13 PM EDT) Magnesium 2.4 1.5 - 2.5 mg/dL 10/27/2024 5:53 PM EDT [facility] Plasma 10/27/2024 5:13 PM EDT 10/27/2024 5:23 PM EDT Kemar Sahni MD LAB BLOOD ORDERABLES Final Result Performing Organization Address City/[facility] Co de Phone Number [facility] [address] * (ABNORMAL) Hepatic Function Panel (10/27/2024 5:13 PM EDT) Total Bilirubin 1.7(H) 0.0 - 1.5 mg/dL 10/27/2024 5:53 PM EDT [facility] Bilirubin, Direct 1.10(H) 0.00 - 0.40 mg/dL 10/27/2024 5:53 PM EDT [facility] AST 62(H) 13 - 39 U/L 10/27/2024 5:53 PM EDT [facility] ALT 134(H) 7 - 52 U/L 10/27/2024 5:53 PM EDT [facility] Alkaline Phosphatase 27(L) 36 - 125 U/L 10/27/2024 5:53 PM EDT [facility] Total Protein 4.1(L) 6.4 - 8.9 g/dL 10/27/2024 5:53 PM EDT [facility] Albumin 2.9(L) 3.5 - 5.7 g/dL 10/27/2024 5:53 PM EDT [facility] Bilirubin, Indirect 0.60 0.00 - 1.10 mg/dL 10/27/2024 5:53 PM EDT [facility] Plasma 10/27/2024 5:13 PM EDT 10/27/2024 5:23 PM EDT Kemar Sahni MD LAB BLOOD ORDERABLES Final Result [facility] [address] [place] [address], [facility] * (ABNORMAL) Renal Function Panel w/EGFR (10/27/2024 5:13 PM EDT) Sodium 142 133 - 146 mmol/L 10/27/2024 5:53 PM EDT [facility] Potassium 3.4(L) 3.5 - 5.3 mmol/L 10/27/2024 5:53 PM EDT [facility] Chloride 109 98 - 110 mmol/L 10/27/2024 5:53 PM EDT [facility] CO2 22 21 - 33 mmol/L 10/27/2024 5:53 PM EDT [facility] Anion Gap 11 3 - 16 mmol/L 10/27/2024 5:53 PM EDT [facility] BUN 61(H) 7 - 25 mg/dL 10/27/2024 5:53 PM EDT [facility] Creatinine 2.42(H) 0.60 - 1.30 mg/dL 10/27/2024 5:53 PM EDT [facility] Glucose 125(H) 70 - 100 mg/dL 10/27/2024 5:53 PM EDT [facility] Calcium 8.8 8.6 - 10.3 mg/dL 10/27/2024 5:53 PM EDT [facility] Phosphorus 5.7(H) 2.1 - 4.7 mg/dL 10/27/2024 5:53 PM EDT [facility] Albumin 2.9(L) 3.5 - 5.7 g/dL 10/27/2024 5:53 PM EDT [facility] Osmolality, Calculated 313(H) 278 - 305 mOsm/kg 10/27/2024 5:53 PM EDT [facility] EGFR 34 10/27/2024 5:53 PM EDT [facility] Comment:As of 2021, [...] MD LAB BLOOD ORDERABLES Final Result [facility] [address] [place] [address], [facility] * (ABNORMAL) CBC (10/27/2024 5:13 PM EDT) WBC 4.9 3.8 - 10.8 10E3/uL 10/27/2024 6:14 PM EDT [facility] RBC 2.44(L) 4.20 - 5.80 10E6/uL 10/27/2024 6:14 PM EDT [facility] Hemoglobin 7.4(L) 13.2 - 17.1 g/dL 10/27/2024 6:14 PM EDT [facility] Hematocrit 21.4(L) 38.5 - 50.0 % 10/27/2024 6:14 PM EDT [facility] MCV 87.6 80.0 - 100.0 fL 10/27/2024 6:14 PM EDT [facility] MCH 30.3 27.0 - 33.0 pg 10/27/2024 6:14 PM EDT [facility] MCHC 34.6 32.0 - 36.0 g/dL 10/27/2024 6:14 PM EDT [facility] RDW 19.6(H) 11.0 - 15.0 % 10/27/2024 6:14 PM EDT [facility] Platelets 47(L) 140 - 400 10E3/uL 10/27/2024 6:14 PM EDT [facility] Comment: CNV Specimen checked for clots. None detected. MPV 8.1 7.5 - 11.5 fL 10/27/2024 6:14 PM EDT [facility] Whole Blood 10/27/2024 5:13 PM EDT 10/27/2024 5:23 PM EDT Kemar Sahni MD LAB BLOOD ORDERABLES Final Result [facility] [address] * (ABNORMAL) POC Glucose Monitoring Device (10/27/2024 3:57 PM EDT) POC Glucose Monitoring Device 131(H) 70 - 100 mg/dL 10/27/2024 3:58 PM EDT [facility] Blood 10/27/2024 3:57 PM EDT 10/27/2024 3:58 PM EDT Semaj Mcnair III, MD POINT OF CARE TEST ORDERABLES Final Result [facility] [address] [facility]. [address] * (ABNORMAL) CBC, STAT (10/27/2024 2:40 PM EDT) WBC 5.8 3.8 - 10.8 10E3/uL 10/27/2024 2:54 PM EDT [facility] RBC 2.43(L) 4.20 - 5.80 10E6/uL 10/27/2024 2:54 PM EDT [facility] Hemoglobin 7.5(L) 13.2 - 17.1 g/dL 10/27/2024 2:54 PM EDT [facility] Hematocrit 21.5(L) 38.5 - 50.0 % 10/27/2024 2:54 PM EDT [facility] MCV 88.2 80.0 - 100.0 fL 10/27/2024 2:54 PM EDT [facility] MCH 30.7 27.0 - 33.0 pg 10/27/2024 2:54 PM EDT [facility] MCHC 34.8 32.0 - 36.0 g/dL 10/27/2024 2:54 PM EDT [facility] RDW 19.1(H) 11.0 - 15.0 % 10/27/2024 2:54 PM EDT [facility] Platelets 50(L) 140 - 400 10E3/uL 10/27/2024 2:54 PM EDT [facility] MPV 7.5 7.5 - 11.5 fL 10/27/2024 2:54 PM EDT [facility] Whole Blood 10/27/2024 2:40 PM EDT 10/27/2024 2:44 PM EDT us John Moreno MD LAB BLOOD ORDERABLES Final R esult [facility] [address] [id number], [facility] * (ABNORMAL) Blood Gas, Arterial, STAT (10/27/2024 2:40 PM EDT) O2 Sat, Arterial 98 10/27/2024 2:46 PM EDT [facility] FIO2 RA 10/27/2024 2:46 PM EDT [facility] pH, Arterial 7.37 7.35 - 7.45 10/27/2024 2:46 PM EDT [facility] pCO2, Arterial 35 35 - 45 mm Hg 10/27/2024 2:46 PM EDT [facility] pO2, Arterial 92 80 - 100 mm Hg 10/27/2024 2:46 PM EDT [facility] HCO3, Arterial 21(L) 22 - 26 mmol/L 10/27/2024 2:46 PM EDT [facility] CO2 Content,Arteri al 21(L) 23 - 27 mmol/L 10/27/2024 2:46 PM EDT [facility] Base Excess, Arterial -4.6(L) -2.0 - 3.0 mmol/L 10/27/2024 2:46 PM EDT [facility] %HBO2, Arterial 95.4 95.0 - 98.0 % 10/27/2024 2:46 PM EDT [facility] Carboxyhemoglo bin, Arterial 1.6 % 10/27/2024 2:46 PM EDT [facility] Comment: CARBOXYHEMOGLOBIN (CO) REFERENCE RANGES: Non-Smokers: <2 % Smokers: <8 % TOXIC: >20 % Methemoglobin, Arterial 1.0 0.0 - 1.5 % 10/27/2024 2:46 PM EDT [facility] Reduced hemoglobin, Arterial 2.1 0.0 - 5.0 % 10/27/2024 2:46 PM EDT [facility] Blood, Arterial 10/27/2024 2 :40 PM EDT 10/27/2024 2:44 PM EDT Narrative [facility] - 10/27/2024 2:46 PM EDT Post extubation John Moreno MD LAB BLOOD ORDERABLES Final R esult [facility] [address] * (ABNORMAL) POC Glucose Monitoring Device (10/27/2024 2:06 PM EDT) [facility] POC Glucose Monitoring Device 134(H) 70 - 100 mg/dL 10/27/2024 2:06 PM EDT [facility] Blood 10/27/2024 2:06 PM EDT 10/27/2024 2:06 PM EDT Semaj Mcnair III, MD POINT OF CARE TEST ORDERABLES Final Result [facility] [address] * (ABNORMAL) Blood gas, arterial (10/27/2024 12:35 PM EDT) O2 Sat, Arterial 99 10/27/2024 12:46 PM EDT [facility] FIO2 SBT 30% 10/27/2024 12:46 PM EDT [facility] pH, Arterial 7.35 7.35 - 7.45 10/27/2024 12:46 PM EDT [facility] pCO2, Arterial 37 35 - 45 mm Hg 10/27/2024 12:46 PM EDT [facility] pO2, Arterial 182(H) 80 - 100 mm Hg 10/27/2024 12:46 PM EDT [facility] HCO3, Arterial 21(L) 22 - 26 mmol/L 10/27/2024 12:46 PM EDT [facility] CO2 Content,Arteri al 22(L) 23 - 27 mmol/L 10/27/2024 12:46 PM EDT [facility] Base Excess, Arterial -4.8(L) -2.0 - 3.0 mmol/L 10/27/2024 12:46 PM EDT [facility] %HBO2, Arterial 96.3 95.0 - 98.0 % 10/27/2024 12:46 PM EDT [facility] Carboxyhemoglo bin, Arterial 1.7 % 10/27/2024 12:46 PM EDT [facility] Comment: CARBOXYHEMOGLOBIN (CO) REFERENCE RANGES: Non-Smokers: <2 % Smokers: <8 % TOXIC: >20 % Methemoglobin, Arterial 1.4 0.0 - 1.5 % 10/27/2024 12:46 PM EDT [facility] Reduced hemoglobin, Arterial 0.6 0.0 - 5.0 % 10/27/2024 12:46 PM EDT [facility] Blood, Arterial 10/27/2024 1 2:35 PM EDT 10/27/2024 12:42 PM EDT Narrative [facility] - 10/27/2024 12:46 PM EDT Please obtain post SBT us Shay Sifuentes MD LAB BLOOD ORDERABLES Final Resu lt [facility] [address] [place] [address], [facility] * (ABNORMAL) TEG-Bypass/ECMO/Liver HN (Factor function, Platelet/Fibrin Clot Strength w/Clot Breakdown, Heparinase In All Channels) (10/27/2024 12:07 PM EDT) Citrated Kaolin Reaction Time (TEGECMOLIVER) 7.9 4.6 - 9.1 minutes 10/27/2024 1:24 PM EDT [facility] Citrated Kaolin W/Heparinase Reaction Time (TEGECMOLIVER) 8.3 4.3 - 8.3 minutes 10/27/2024 1:24 PM EDT [facility] Citrated Kaolin Maximum Amplitude (TEGECMOLIVER) 52.0 52.0 - 69.0 mm 10/27/2024 1:24 PM EDT [facility] Citrated Functional Fibrinogen W/Heparinase Maximum Amplitude(TEGEC MOLIVER) 20.1 15.0 - 34.0 mm 10/27/2024 1:24 PM EDT [facility] Citrated Rapid Teg W/Heparinase Maximum Amplitude (TEGECMOLIVER) 49.4(L) 53.0 - 69.0 mm 10/27/2024 1:24 PM EDT [facility] Citrated Kaolin w/Heparinase Percent Lysis (TEGECMOLIVER) 0.0 0.0 - 3.2 % 10/27/2024 1:24 PM EDT [facility] Whole Blood (Citrate) 10/27/2024 12:07 PM EDT 10/27/2024 12:09 PM EDT us Kemar Sahni MD LAB BLOOD ORDERABLES Final Result [facility] [address] [place] [address], [facility] * (ABNORMAL) POC Glucose Monitoring Device (10/27/2024 12:01 PM EDT) POC Glucose Monitoring Device 121(H) 70 - 100 mg/dL 10/27/2024 12:02 PM EDT [facility] Blood 10/27/2024 12:0 1 PM EDT 10/27/2024 12:01 PM EDT Semaj Mcnair III, MD POINT OF CARE TEST ORDERABLES Final Result Performing Organization Address [facility] Co de Phone Number [facility] [address] * (ABNORMAL) POC Glucose Monitoring Device (10/27/2024 10:59 AM EDT) POC Glucose Monitoring Device 126(H) 70 - 100 mg/dL 10/27/2024 11:10 AM EDT [facility] Blood 10/27/2024 10:5 9 AM EDT 10/27/2024 11:10 AM EDT us Semaj Mcnair III, MD POINT OF CARE TEST ORDERABLES Final Result Performing Organization Address [facility] [[email or web address]] de Phone Number [facility] [address] * ECG 12 lead (MUSE) (10/27/2024 10:17 AM EDT) 10/27/2024 10:1 7 AM EDT Narrative MUSE - 10/27/2024 2:51 PM EDT Ventricular Rate: 91 BPM Atrial Rate: 91 BPM P-R Interval: 168 ms QRS Duration: 90 ms QT: 274 ms QTc: 337 ms P Henderson: 60 degrees R Henderson: -30 degrees T Henderson: -15 degrees Diagnosis Line: NORMAL SINUS RHYTHM ^ LEFT AXIS DEVIATION, LEFT ANTERIOR HEMIBLOCK ^ NONSPECIFIC T WAVE CHANGE ^ ABNORMAL ECG ^ ^ Confirmed by MD ROLLY, [facility] ([id number]) on 10/27/2024 2:51:52 PM Shay Sifuentes MD ECG ORDERABLES Final Result Performing Organization Address City/[facility] Co de Phone Number MUSE * (ABNORMAL) POC Glucose Monitoring Device (10/27/2024 10:00 AM EDT) POC Glucose Monitoring Device 121(H) 70 - 100 mg/dL 10/27/2024 10:01 AM EDT [facility] Blood 10/27/2024 10:0 0 AM EDT 10/27/2024 10:01 AM EDT Semaj Mcnair III, MD POINT OF CARE TEST ORDERABLES Final Result [facility] [address] [place] [address], [facility] * US Renal Transplant (10/27/2024 9:51 [...] US ORDERABLES Final Result * US Duplex [id number] Comp (10/27/2024 9:51 AM EDT) Anatomical Region [...] EXAM: US ABDOMEN LIMITED EXAM: US DUPLEX [id number] COMPLETE INDICATION: Post-op liver transplant COMPARISON: None [...] absent.. Pancreas: Obscured by overlying bowel gas. [place] right kidney: 12.5 cm in length. Normal [...] EXAM: US ABDOMEN LIMITED EXAM: US DUPLEX [id number] COMPLETE INDICATION: Post-op liver transplant COMPARISON: None [...] absent.. Pancreas: Obscured by overlying bowel gas. [place] right kidney: 12.5 cm in length. Normal [...] 10/27/2024 10:38 AM EDT Sveta Judge MD IMG US ORDERABLES Final [...] EXAM: US ABDOMEN LIMITED EXAM: US DUPLEX [id number] COMPLETE INDICATION: Post-op liver transplant COMPARISON: None [...] absent.. Pancreas: Obscured by overlying bowel gas. [place] right kidney: 12.5 cm in length. Normal [...] EXAM: US ABDOMEN LIMITED EXAM: US DUPLEX [id number] COMPLETE INDICATION: Post-op liver transplant COMPARISON: None [...] absent.. Pancreas: Obscured by overlying bowel gas. [place] right kidney: 12.5 cm in length. Normal [...] - 100 mg/dL 10/27/2024 9:06 AM EDT [facility] Blood 10/27/2024 9:05 AM EDT 10/27/2024 9:06 AM EDT Semaj Mcnair III, MD POINT OF CARE TEST ORDERABLES Final Result [facility] [address] [place] [address], [facility] * X-ray Portable Chest (10/27/2024 8:58 [...] 15.1 seconds 10/27/2024 8:35 AM EDT [facility] INR 1.2(H) 0.9 - 1.1 10/27/2024 8:35 AM EDT [facility] Comment: RECOMMENDED THERAPEUTIC RANGES USING INR : Stable oral anticoagulant therapy: 2.0 - 3.0 Mechanical prosthetic heart valve: 2.5 - 3.5 Recurrent acute myocardial infarction: 2.5 - 3.5 Plasma 10/27/2024 8:16 AM EDT 10/27/2024 8:20 AM EDT us John Moreno MD LAB BLOOD ORDERABLES Final R esult [facility] [address] [id number], [facility] * Magnesium (10/27/2024 8:00 AM EDT) Magnesium 1.8 1.5 - 2.5 mg/dL 10/27/2024 10:50 AM EDT [facility] Plasma 10/27/2024 8:00 AM EDT 10/27/2024 10:31 AM EDT us Kemar Sahni MD LAB BLOOD ORDERABLES Final Result [facility] [address] [place] [address], [facility] * (ABNORMAL) Renal Function Panel w/EGFR (10/27/2024 8:00 AM EDT) Sodium 142 133 - 146 mmol/L 10/27/2024 10:18 AM EDT [facility] Potassium 3.0(L) 3.5 - 5.3 mmol/L 10/27/2024 10:18 AM EDT [facility] Chloride 109 98 - 110 mmol/L 10/27/2024 10:18 AM EDT [facility] CO2 21 21 - 33 mmol/L 10/27/2024 10:18 AM EDT [facility] Anion Gap 12 3 - 16 mmol/L 10/27/2024 10:18 AM EDT [facility] BUN 59(H) 7 - 25 mg/dL 10/27/2024 10:18 AM EDT [facility] Creatinine 2.54(H) 0.60 - 1.30 mg/dL 10/27/2024 10:18 AM EDT [facility] Glucose 111(H) 70 - 100 mg/dL 10/27/2024 10:18 AM EDT [facility] Calcium 9.1 8.6 - 10.3 mg/dL 10/27/2024 10:18 AM EDT [facility] Phosphorus 5.5(H) 2.1 - 4.7 mg/dL 10/27/2024 10:18 AM EDT [facility] Albumin 3.0(L) 3.5 - 5.7 g/dL 10/27/2024 10:18 AM EDT [facility] Osmolality, Calculated 311(H) 278 - 305 mOsm/kg 10/27/2024 10:18 AM EDT [facility] EGFR 32 10/27/2024 10:18 AM EDT [facility] Comment:As [...] MD LAB BLOOD ORDERABLES Final Result [facility] [address] [place] [address], [facility] * (ABNORMAL) Hepatic Function Panel, STAT (10/27/2024 8:00 AM EDT) Total Bilirubin 1.3 0.0 - 1.5 mg/dL 10/27/2024 8:51 AM EDT [facility] Bilirubin, Direct 0.93(H) 0.00 - 0.40 mg/dL 10/27/2024 8:51 AM EDT [facility] AST 88(H) 13 - 39 U/L 10/27/2024 8:51 AM EDT [facility] ALT 149(H) 7 - 52 U/L 10/27/2024 8:51 AM EDT [facility] Alkaline Phosphatase 26(L) 36 - 125 U/L 10/27/2024 8:51 AM EDT [facility] Total Protein 4.0(L) 6.4 - 8.9 g/dL 10/27/2024 8:51 AM EDT [facility] Albumin 3.0(L) 3.5 - 5.7 g/dL 10/27/2024 8:51 AM EDT [facility] Bilirubin, Indirect 0.37 0.00 - 1.10 mg/dL 10/27/2024 8:51 AM EDT [facility] Plasma 10/27/2024 8:00 AM EDT 10/27/2024 8:20 AM EDT us Semaj Mcnair III, MD LAB BLOOD ORDERABLE S Final Result Performing Organization Address [facility] de Phone Number [facility] [address] [place] [address] * (ABNORMAL) Lactic Acid, STAT (10/27/2024 8:00 AM EDT) Lactate 0.4(L) 0.5 - 2.2 mmol/L 10/27/2024 8:43 AM EDT [facility] Plasma 10/27/2024 8:00 AM EDT 10/27/2024 8:20 AM EDT us Semaj Mcnair III, MD LAB BLOOD ORDERABLE S Final Result Performing Organization Address [facility] [[email or web address]] de Phone Number [facility] [address] [place] [address] * (ABNORMAL) Blood Gas, Arterial, STAT (10/27/2024 8:00 AM EDT) O2 Sat, Arterial 100 10/27/2024 8:23 AM EDT [facility] pH, Arterial 7.36 7.35 - 7.45 10/27/2024 8:23 AM EDT [facility] pCO2, Arterial 37 35 - 45 mm Hg 10/27/2024 8:23 AM EDT [facility] pO2, Arterial 245(H) 80 - 100 mm Hg 10/27/2024 8:23 AM EDT [facility] HCO3, Arterial 22 22 - 26 mmol/L 10/27/2024 8:23 AM EDT [facility] CO2 Content,Arteri al 22(L) 23 - 27 mmol/L 10/27/2024 8:23 AM EDT [facility] Base Excess, Arterial -4.2(L) -2.0 - 3.0 mmol/L 10/27/2024 8:23 AM EDT [facility] %HBO2, Arterial 96.5 95.0 - 98.0 % 10/27/2024 8:23 AM EDT [facility] Carboxyhemoglo bin, Arterial 2.2 % 10/27/2024 8:23 AM EDT [facility] Comment: CARBOXYHEMOGLOBIN (CO) REFERENCE RANGES: Non-Smokers: <2 % Smokers: <8 % TOXIC: >20 % Methemoglobin, Arterial 1.2 0.0 - 1.5 % 10/27/2024 8:23 AM EDT [facility] Reduced hemoglobin, Arterial 0.0 0.0 - 5.0 % 10/27/2024 8:23 AM EDT [facility] Blood, Arterial 10/27/2024 8 :00 AM EDT 10/27/2024 8:19 AM EDT Narrative [facility] - 10/27/2024 8:23 AM EDT Specimen is beyond 15 minutes from time of collection. Results may be compromised. Review results critically. Kemar Sahni MD LAB BLOOD ORDERABLES Final Result Performing Organization Address City/State/[facility] Co de Phone Number [facility] [address] * (ABNORMAL) TEG-Bypass/ECMO/Liver HN (Factor function, Platelet/Fibrin Clot Strength w/Clot Breakdown, Heparinase In All Channels) (10/27/2024 8:00 AM EDT) Pathologist [facility] Citrated Kaolin Reaction Time (TEGECMOLIVER) 7.8 4.6 - 9.1 minutes 10/27/2024 9:39 AM EDT [facility] Citrated Kaolin W/Heparinase Reaction Time (TEGECMOLIVER) 8.0 4.3 - 8.3 minutes 10/27/2024 9:39 AM EDT [facility] Citrated Kaolin Maximum Amplitude (TEGECMOLIVER) 52.7 52.0 - 69.0 mm 10/27/2024 9:39 AM EDT [facility] Citrated Functional Fibrinogen W/Heparinase Maximum Amplitude(TEGEC MOLIVER) 19.0 15.0 - 34.0 mm 10/27/2024 9:39 AM EDT [facility] Citrated Rapid Teg W/Heparinase Maximum Amplitude (TEGECMOLIVER) 49.5(L) 53.0 - 69.0 mm 10/27/2024 9:39 AM EDT [facility] Citrated Kaolin w/Heparinase Percent Lysis (TEGECMOLIVER) 0.0 0.0 - 3.2 % 10/27/2024 9:39 AM EDT [facility] Whole Blood (Citrate) 10/27/2024 8:00 AM EDT 10/27/2024 8:19 AM EDT Kemar Sahni MD LAB BLOOD ORDERABLES Final Result Performing Organization Address City/[facility]/ZIP Co de Phone Number [facility] [address] [facility]. [address] * (ABNORMAL) Katie-Watkins virus VCA IgG Antibody (10/27/2024 8:00 AM EDT) EBV VCA IgG Positive( A) Negative 10/27/2024 11:30 AM EDT [facility] Comment:Presence of detectab le VCA IgG antibodies. 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 EBV IGG NUM 314.00(H) 0.00 - 17.99 U/mL 10/27/2024 11:30 AM EDT [facility] Serum 10/27/2024 8:00 AM EDT 10/27/2024 8:20 AM EDT Kemar Sahni MD LAB BLOOD ORDERABLES Final Result [facility] [address] [facility]. [address] * Hemoglobin A1c (10/27/2024 8:00 AM EDT) Hemoglobin A1C 5.0 4.0 - 5.6 % 10/27/2024 11:12 AM EDT [facility] Comment: Hemoglobin [...] BLOOD ORDERABLES Final Result Performing Organization Address City/[facility]/ZIP Co de Phone Number [facility] [address] [facility]. [address] * (ABNORMAL) POC Glucose Monitoring Device (10/27/2024 7:59 AM EDT) POC Glucose Monitoring Device 113(H) 70 - 100 mg/dL 10/27/2024 7:59 AM EDT [facility] Blood 10/27/2024 7:59 AM EDT 10/27/2024 7:59 AM EDT Semaj Mcnair III, MD POINT OF CARE TEST ORDERABLES Final Result Performing Organization Address [facility] Co de Phone Number [facility] [address] [facility]. [address] * X-ray Abdomen AP view (10/27/2024 [...] left chest wall. Findings communicated to Michela Nessa, RN via telephone by Ag Garcia MD [...] Units (10/27/2024 6:16 AM EDT) Product Code W8009L62 [facility]LL Unit Number [id number] HCLL Dispense Status Presumed Transfused_PT HCLL Blood Expiration Date HCLL Coding System MUBJ780 HCLL Product Code W0123N85 HCLL Unit Number [id number] HCLL Dispense Status Presumed Transfused_PT HCLL Blood Expiration Date [id number] HCLL Coding System [id number] HCLL Blood Bank Product John Pina MD BLOOD BANK PRODUCT ORDERABLES F inal Result Performing Organization Address City/[facility] Co de Phone Number HC[facility] * Prepare Platelets, leukoreduced, 1 Units (10/27/2024 6:16 AM EDT) Product Code A6032T66 HCLL Unit Number [id number] HCLL Dispense Status Presumed Transfused_PT HCLL Blood Expiration Date [id number] HCLL Coding System [id number] HCLL Blood Bank Product Eber Quinones MD BLOOD BANK PRODUCT ORDER PAL Final Result Performing Organization Address [facility] Co de Phone Number [facility] * Prepare Cryoprecipitate, 1 Units (10/27/2024 6:16 AM EDT) Product Code P9878W62 HCLL Unit Number [id number] HCLL Dispense Status Presumed Transfused_PT HCLL Blood Expiration Date HCLL Coding System UPJD967 HCLL Product Code S2627V72 HCLL Unit Number [id number] HCLL Dispense Status Presumed Transfused_PT HCLL Blood Expiration Date 636996095893 HCLL Coding System LXCK363 HCLL Blood Bank Product Eber Quinones MD BLOOD BANK PRODUCT ORDER PAL Final Result Performing Organization Address City/[facility] Co de Phone Number [facility] * Prepare Fresh Frozen Plasma, 10 Units (10/27/2024 6:16 AM EDT) Product Code U8074X00 HCLL Unit Number [id number] HCLL Dispense Status Presumed Transfused_PT HCLL Blood Expiration Date 875449022846 HCLL Coding System KPLW010 HCLL Product Code W9459M61 HCLL Unit Number [id number] HCLL Dispense Status Presumed Transfused_PT HCLL Blood Expiration Date HCLL Coding System ASUU421 HCLL Product Code Y6842B76 HCLL Unit Number [id number] HCLL Dispense Status Presumed Transfused_PT HCLL Blood Expiration Date HCLL Coding System ZNXO077 HCLL Product Code I7582B21 HCLL Unit Number [id number] HCLL Dispense Status Presumed Transfused_PT HCLL Blood Expiration Date HCLL Coding System BOOB159 HCLL Product Code Z9514Q59 HCLL Unit Number [id number] HCLL Dispense Status Released from Crossmatch_RE HCLL Blood Expiration Date 256531825307 HCLL Coding System LABR958 HCLL Product Code U8663U90 HCLL Unit Number [id number] HCLL Dispense Status Released from Crossmatch_RE HCLL Blood Expiration Date HCLL Coding System ZJRO330 HCLL Product Code Q5119Z10 HCLL Unit Number [id number] HCLL Dispense Status Presumed Transfused_PT HCLL Blood Expiration Date HCLL Coding System MXTU870 HCLL Product Code X8730D77 HCLL Unit Number [id number] HCLL Dispense Status Presumed Transfused_PT HCLL Blood Expiration Date HCLL Coding System SVQQ816 HCLL Product Code U5314N76 HCLL Unit Number [id number] HCLL Dispense Status Presumed Transfused_PT HCLL Blood Expiration Date HCLL Coding System ZVYU687 HCLL Product Code Z3058N94 HCLL Unit Number [id number] HCLL Dispense Status Presumed Transfused_PT HCLL Blood Expiration Date 325960512043 HCLL Coding System VUJO641 HCLL Blood Bank Product us Leandra Og MD BLOOD BANK PRODUCT ORD ERABLES Final Result HC[facility] * Prepare Platelets, leukoreduced, 1 Units (10/27/2024 6:16 AM EDT) Product Code P5775F70 HCLL Unit Number [id number] HCLL Dispense Status Presumed Transfused_PT HCLL Blood Expiration Date 243036758430 HCLL Coding System [id number] HCLL Blood Bank Product us Ben Blake MD BLOOD BANK PRODUCT ORDERABLES Final Result Performing Organization Address [facility] Co de Phone Number HC[facility] * Prepare Fresh Frozen Plasma (10/27/2024 6:15 AM EDT) Product Code C0493Z79 HCLL Unit Number [id number] HCLL Dispense Status Presumed Transfused_PT HCLL Blood Expiration Date HCLL Coding System AKQU779 HCLL Product Code D4641J96 HCLL Unit Number [id number] HCLL Dispense Status Released from Crossmatch_RE HCLL Blood Expiration Date HCLL Coding System FPQH268 HCLL Product Code I0818F41 HCLL Unit Number [id number] HCLL Dispense Status Presumed Transfused_PT HCLL Blood Expiration Date HCLL Coding System VCPF084 HCLL Product Code K2222U98 HCLL Unit Number [id number] HCLL Dispense Status Presumed Transfused_PT HCLL Blood Expiration Date HCLL Coding System GGFR976 HCLL Product Code Q6488A16 HCLL Unit Number [id number] HCLL Dispense Status Released from Crossmatch_RE HCLL Blood Expiration Date HCLL Coding System MGQS979 HCLL us Attending Provider Unknown BLOOD BANK PRODUCT OR DERABLES Final Result [facility] * Prepare RBC, leukoreduced (10/27/2024 6:15 AM EDT) Product Code A1715E53 HCLL Unit Number [id number] HCLL Dispense Status Presumed Transfused_PT HCLL Blood Expiration Date HCLL Coding System IJDO962 HCLL Product Code Z6512S65 HCLL Unit Number [id number] HCLL Dispense Status Released from Crossmatch_RE HCLL Blood Expiration Date HCLL Coding System EQQN434 HCLL Product Code T1770J78 HCLL Unit Number [id number] HCLL Dispense Status Released from Crossmatch_RE HCLL Blood Expiration Date 397760256300 HCLL Coding System XLFC500 HCLL Product Code L0122D47 HCLL Unit Number [id number] HCLL Dispense Status Released from Crossmatch_RE HCLL Blood Expiration Date 260040794804 HCLL Coding System PRXB036 HCLL Product Code S8364A51 HCLL Unit Number [id number] HCLL Dispense Status Released from Crossmatch_RE HCLL Blood Expiration Date 497167146703 HCLL Coding System KKRL318 HCLL Attending Provider Unknown BLOOD BANK PRODUCT OR DERABLES Final Result [facility] * Prepare RBC, leukoreduced, 10 Units (10/27/2024 6:15 AM EDT) Product Code E7979V22 HCLL Unit Number [id number] HCLL Dispense Status Presumed Transfused_PT HCLL Blood Expiration Date 206321067924 HCLL Coding System DJRA691 HCLL Product Code K5315Q03 HCLL Unit Number [id number] HCLL Dispense Status Presumed Transfused_PT HCLL Blood Expiration Date 051415874922 HCLL Coding System GYRB764 HCLL Product Code I0857I29 HCLL Unit Number [id number] HCLL Dispense Status Presumed Transfused_PT HCLL Blood Expiration Date 436198308536 HCLL Coding System MGTZ014 HCLL Product Code B4249L20 HCLL Unit Number [id number] HCLL Dispense Status Presumed Transfused_PT HCLL Blood Expiration Date 251201261705 HCLL Coding System YPUZ332 HCLL Product Code J0336I99 HCLL Unit Number [id number] HCLL Dispense Status Presumed Transfused_PT HCLL Blood Expiration Date 484307855862 HCLL Coding System VEOW657 HCLL Product Code O8991C78 HCLL Unit Number [id number] HCLL Dispense Status Presumed Transfused_PT HCLL Blood Expiration Date 986022507476 HCLL Coding System OJHY276 HCLL Product Code P7797A80 HCLL Unit Number [id number] HCLL Dispense Status Presumed Transfused_PT HCLL Blood Expiration Date 418477111137 HCLL Coding System IUHH801 HCLL Product Code C5755I33 HCLL Unit Number [id number] HCLL Dispense Status Presumed Transfused_PT HCLL Blood Expiration Date 379375845351 HCLL Coding System NCIY349 HCLL Product Code I1051V96 HCLL Unit Number [id number] HCLL Dispense Status Presumed Transfused_PT HCLL Blood Expiration Date 128251167215 HCLL Coding System EQZA989 HCLL Product Code Z1238Z56 HCLL Unit Number [id number] HCLL Dispense Status Presumed Transfused_PT HCLL Blood Expiration Date 925478776082 HCLL Coding System GUJT525 HCLL Blood Bank Product us Leandra Og MD BLOOD BANK PRODUCT ORD ERABLES Final Result HC[facility] * Transfuse Platelets (10/27/2024 6:09 AM EDT) us Ben Blake MD NURSING TREATMENT ORDERABLES - BLOOD ADMIN Final Result * (ABNORMAL) Arterial Blood Gas Panel (10/27/2024 6:09 AM EDT) [facility] Signature O2Sat (ABGP) 100 10/27/2024 6:17 AM [facility] pH (ABGP) 7.30(L) 7.35 - 7.45 10/27/2024 6:17 AM [facility] PCO2 (ABGP) 41 35 - 45 mm Hg 10/27/2024 6:17 AM [facility] PO2 (ABGP) 192(H) 80 - 100 mm Hg 10/27/2024 6:17 AM [facility] HCO3 (ABGP) 21(L) 22 - 26 mmol/L 10/27/2024 6:17 AM [facility] CO2 Content (ABGP) 22(L) 23 - 27 mmol/L 10/27/2024 6:17 AM [facility] Base Excess (ABGP) -5.7(L) -2.0 - 3.0 mmol/L 10/27/2024 6:17 AM [facility] Sodium (ABGP) 138 136 - 146 mEq/L 10/27/2024 6:17 AM [facility] Potassium (ABGP) 3.3(L) 3.5 - 5.0 mEq/L 10/27/2024 6:17 AM [facility] Comment:In the event of in-v itro hemolysis, potassium results may be falsely elevated. Always interpret lab results in conjunction with clinical findings. If hemolysis is suspected, a serum sample may be collected for repeat assessment of potassium. Calcium, Free (ABGP) 5.28 4.50 - 5.30 mg/dL 10/27/2024 6:17 AM [facility] Glucose (ABGP) 112(H) 70 - 100 mg/dL 10/27/2024 6:17 AM [facility] Comment:There is interferenc e with whole blood glucose results on this method when Hematocrit is <25% or >60%. HCT (ABGP) 20.0(L) 40.0 - 52.0 % 10/27/2024 6:17 AM [facility] HGB (ABGP) 6.5(L) 14.0 - 18.0 g/dL 10/27/2024 6:17 AM [facility] %HBO2 (ABGP) 96.8 95.0 - 98.0 % 10/27/2024 6:17 AM EDT [facility] Carboxyhgb (ABGP) 2.1 % 025 6:17 AM EDT [facility] Comment: CARBOXYHEMOGLOBIN (CO) REFERENCE RANGES: Non-Smokers: <2 % Smokers: <8 % TOXIC: >20 % Methemoglobin (ABGP) 1.0 0.0 - 1.5 % 10/27/2024 6:17 AM EDT [facility] Reduced Hemoglobin (ABGP) 0.2 0.0 - 5.0 % 10/27/2024 6:17 AM EDT [facility] Lactic Acid (ABGP) 0.4(L) 0.5 - 1.6 mmol/L 10/27/2024 6:17 AM EDT [facility] Blood, Arterial 10/27/2024 6 :09 AM EDT 10/27/2024 6:14 AM EDT us Ben Blake MD LAB BLOOD ORDERABLES Final Re sult [facility] [address] [place] [address], [facility] * Transfuse Fresh Frozen Plasma (10/27/2024 [...] Glucose Monitoring Device (10/27/2024 4:46 AM EDT) [facility] POC Glucose Monitoring Device 124(H) 70 - 100 mg/dL 10/27/2024 4:47 AM EDT [facility] Blood 10/27/2024 4:46 AM EDT 10/27/2024 4:47 AM EDT Semaj Mcnair III, MD POINT OF CARE TEST ORDERABLES Final Result [facility] [address] [place] [address], [facility] * Transfuse Platelets (10/27/2024 4:24 AM [...] (ABGP) 100 10/27/2024 3:21 AM EDT [facility] pH (ABGP) 7.32(L) 7.35 - 7.45 10/27/2024 3:21 AM EDT [facility] PCO2 (ABGP) 38 35 - 45 mm Hg 10/27/2024 3:21 AM EDT [facility] PO2 (ABGP) 176(H) 80 - 100 mm Hg 10/27/2024 3:21 AM EDT [facility] HCO3 (ABGP) 20(L) 22 - 26 mmol/L 10/27/2024 3:21 AM EDT [facility] CO2 Content (ABGP) 21(L) 23 - 27 mmol/L 10/27/2024 3:21 AM EDT [facility] Base Excess (ABGP) -6.0(L) -2.0 - 3.0 mmol/L 10/27/2024 3:21 AM EDT [facility] Sodium (ABGP) 138 136 - 146 mEq/L 10/27/2024 3:21 AM EDT [facility] Potassium (ABGP) 3.0(L) 3.5 - 5.0 mEq/L 10/27/2024 3:21 AM EDT [facility] Comment:In the event of in-v itro hemolysis, potassium results may be falsely elevated. Always interpret lab results in conjunction with clinical findings. If hemolysis is suspected, a serum sample may be collected for repeat assessment of potassium. Calcium, Free (ABGP) 5.28 4.50 - 5.30 mg/dL 10/27/2024 3:21 AM EDT [facility] Glucose (ABGP) 108(H) 70 - 100 mg/dL 10/27/2024 3:21 AM EDT [facility] Comment:There is interferenc e with whole blood glucose results on this method when Hematocrit is <25% or >60%. HCT (ABGP) 22.0(L) 40.0 - 52.0 % 10/27/2024 3:21 AM EDT [facility] HGB (ABGP) 7.3(L) 14.0 - 18.0 g/dL 10/27/2024 3:21 AM EDT [facility] %HBO2 (ABGP) 97.3 95.0 - 98.0 % 10/27/2024 3:21 AM EDT [facility] Carboxyhgb (ABGP) 1.9 % 025 3:21 AM EDT [facility] Comment: CARBOXYHEMOGLOBIN (CO) REFERENCE RANGES: Non-Smokers: <2 % Smokers: <8 % TOXIC: >20 % Methemoglobin (ABGP) 0.8 0.0 - 1.5 % 10/27/2024 3:21 AM EDT [facility] Reduced Hemoglobin (ABGP) 0.0 0.0 - 5.0 % 10/27/2024 3:21 AM EDT [facility] Lactic Acid (ABGP) 0.3(L) 0.5 - 1.6 mmol/L 10/27/2024 3:21 AM EDT [facility] Blood, Arterial 10/27/2024 3 :07 AM EDT 10/27/2024 3:14 AM EDT us Ben Blake MD LAB BLOOD ORDERABLES Final Re sult [facility] [address] [place], [place] [address] * Surgical Pathology Exam (10/27/2024 2:38 AM EDT) Tissue LEFT KIDNEY STRUCTURE / Unknown 10/27/2024 2:38 AM EDT Narrative [facility] - 10/27/2024 12:00 AM EDT CASE: [id number] PATIENT: BLAIR GILBERT Clinical History: Transplant kidney with bile duct reconstruction Pre-Operative Diagnosis: Acute kidney injury superimposed on CKD Post-Operative Diagnosis: None Given Specimen(s) Submitted: A. baseline renal biopsy ; B. right lobe liver biopsy; C. left lobe liver biopsy CPT Code(s): 73064 X 1; 44091 X 2; 68471 X 4 Additional Information: FINAL DIAGNOSIS: A. [...] parenchyma, which is entirely submitted in cassette [employer] A1. (NAA Mckeon/rr) B. Received in formalin, labeled with the patient's name Blair Gilbert and right lobe liver biopsy are two green-brown tissue cores measuring 1.8 and 2.0 cm in length, each with a diameter of 0.1 cm, which are entirely submitted between blue biopsy sponges in cassette [employer]-[id number] B1-B2. (NAA Mckeon/ns) C. Received in formalin, labeled with the patient's name Blair Gilbert and left lobe liver biopsy are two green-georges tissue cores measuring 1.2 and 1.4 cm in length, each with a diameter of 0.1 cm, which are entirely submitted between blue biopsy sponges in cassette [facility]-[id number] C1-C2. (NAA Mckeon/ns) Microscopic Description: I, the attending pathologist, have personally reviewed all prosector/resident work and pathology slides to determine final diagnosis. Control Materials Reacted Appropriately. Final Diagnosis performed by CLARE FALL MD Pathologist Electronically signed 10/31/2024 01:07:09 PM The Pathologist signing this report is located at [facility], [address] [place] [address], [id number], , CLIA ID: [id number] ADDENDUM: A. Kidney, allograft, baseline, wedge biopsy: [...] signing this report is located at [facility], [address] [place] [address], [id number], , CLIA ID: [id number] us Kemar Sahni MD PATHOLOGY/CYTOLOGY ORDERABL ES Edited Result - Final [facility] * Anaerobic culture (10/27/2024 2:15 AM EDT) Culture Result No Anaerobes Isolated in 5 Days [facility] Fluid SPECIMEN FROM KIDNEY / Unknown 10/27/2024 2:15 AM EDT 10/27/2024 4:24 AM EDT Narrative [facility] - 10/31/2024 11:43 AM EDT 1) perfusate Semaj Mcnair III, MD MICROBIOLOGY - GENE RAL ORDERABLES Final Result Performing Organization Address [facility] Co de Phone Number [facility] [address] [facility]. [address] * Fungus culture (10/27/2024 2:15 AM EDT) Culture Result No Fungus Isolated At 4 Weeks [facility] Fluid SPECIMEN FROM KIDNEY / Unknown 10/27/2024 2:15 AM EDT 10/27/2024 4:24 AM EDT Narrative [facility] - 11/24/2024 7:52 AM EDT 1) perfusate Semaj Mcnair III, MD MICROBIOLOGY - GENE RAL ORDERABLES Final Result Performing Organization Address [facility] Co de Phone Number [facility] [address] [facility] * Routine Culture plus Stain (10/27/2024 2:15 AM EDT) Gram Stain Result No Polymorphonuclear Leukocytes Seen [facility] Gram Stain Result No Organisms Seen; [facility] Culture Result No Growth After 3 Days [facility] Fluid SPECIMEN FROM KIDNEY / Unknown 10/27/2024 2:15 AM EDT 10/27/2024 4:24 AM EDT Narrative [facility] - 10/30/2024 9:26 AM EDT 1) perfusate us Semaj Mcnair III, MD MICROBIOLOGY - GENE RAL ORDERABLES Final Result Performing Organization Address [facility] Co de Phone Number [facility] [address] [facility] * Transfuse Platelets Transfusion Rate: Per [...] a Baseline TEG) (10/27/2024 1:51 AM EDT) [facility] Citrated Kaolin Reaction Time (TEGHEPARINASE) 10.6(H) 4.6 - 9.1 minutes 10/27/2024 2:44 AM EDT [facility] Citrated Rapid Teg Maximum Amplitude (TEGHEPARINASE) 42.3(L) 52.0 - 70.0 mm 10/27/2024 2:44 AM EDT [facility] Citrated Functional Fibrinogen Maximum Amplitude (TEGHEPARINASE) 15.0 15.0 - 32.0 mm 10/27/2024 2:44 AM EDT [facility] Citrated Kaolin W/Heparinase Reaction Time (TEGHEPARINASE) 10.5(H) 4.3 - 8.3 minutes 10/27/2024 2:44 AM EDT [facility] Citrated Kaolin K-Time (TEGHEPARINASE) 2.9(A) 0.8 - 2.1 minutes 10/27/2024 2:44 AM EDT [facility] Citrated Kaolin Angle (TEGHEPARINASE) 60.4(A) 63.0 - 78.0 degrees 10/27/2024 2:44 AM EDT [facility] Citrated Kaolin Maximum Amplitude (TEGHEPARINASE) 42.9(L) 52.0 - 69.0 mm 10/27/2024 2:44 AM EDT [facility] Citrated Functional Fibrinogen- Fibrinogen Level (TEGHEPARINASE) 273.7(L) 278.0 - 581.0 mg/dL 10/27/2024 2:44 AM EDT [facility] Whole Blood (Citrate) 10/27/2024 1:51 AM EDT 10/27/2024 2:03 AM EDT us John Pina MD LAB BLOOD ORDERABLES Final Resu lt Performing Organization Address City/[facility] Co de Phone Number [facility] [address] [facility]. [address] * (ABNORMAL) POC Glucose Monitoring Device (10/27/2024 1:50 AM EDT) POC Glucose Monitoring Device 121(H) 70 - 100 mg/dL 10/27/2024 1:51 AM EDT [facility] Blood 10/27/2024 1:50 AM EDT 10/27/2024 1:51 AM EDT us Semaj Mcnair III, MD POINT OF CARE TEST ORDERABLES Final Result Performing Organization Address [facility] Co de Phone Number [facility] [address] [facility] * Transfuse Cryoprecipitate Transfusion Rate: Per dept routine (10/27/2024 1:25 AM EDT) us John Pina MD NURSING TREATMENT ORDERABLES - BLOOD ADMIN Final Result Performing Organization Address [facility] [[email or web address]] de Phone Number EXTERNAL * Transfuse Cryoprecipitate Transfusion Rate: Per dept routine, 1 Units (10/27/2024 1:25 AM EDT) us John Pina MD NURSING TREATMENT ORDERABLES - BLOOD ADMIN Final Result Performing Organization Address City/[facility] Co de Phone Number EXTERNAL * (ABNORMAL) POC Glucose Monitoring Device (10/27/2024 1:21 AM EDT) POC Glucose Monitoring Device 123(H) 70 - 100 mg/dL 10/27/2024 1:22 AM EDT [facility] Blood 10/27/2024 1:21 AM EDT 10/27/2024 1:21 AM EDT us Semaj Mcnair III, MD POINT OF CARE TEST ORDERABLES Final Result Performing Organization Address City/[facility] Co de Phone Number [facility] [address] [facility]. [address] * Transfuse Fresh Frozen Plasma Transfusion Rate: Per dept routine (10/27/2024 1:03 AM EDT) us John Pina MD NURSING TREATMENT ORDERABLES - BLOOD ADMIN Final Result Performing Organization Address [facility] [[email or web address]] de Phone Number EXTERNAL * Transfuse Fresh Frozen Plasma Transfusion Rate: Per dept routine, 1 Units (10/27/2024 1:03 AM EDT) us John Pina MD NURSING TREATMENT ORDERABLES - BLOOD ADMIN Final Result Performing Organization Address [facility] [[email or web address]] de Phone Number EXTERNAL * Calcium Free, Serum (10/27/2024 12:13 AM EDT) Free Calcium, Ser 5.20 4.40 - 5.40 mg/dL 10/27/2024 12:37 AM EDT [facility] Comment:Free calcium levels vary inversely with pH by approximately 5% for each 0.1 unit of pH change. Assay results have been normalized to pH = 7.40. Serum 10/27/2024 12:1 3 AM EDT 10/27/2024 12:29 AM EDT Narrative [facility] - 10/27/2024 12:37 AM EDT This test has been developed and its performance characteristics determined by [facility] which is certified under [...] ORDERABLES Final Resu lt Performing Organization Address [facility] Co de Phone Number [facility] [address] [facility]. [address] * (ABNORMAL) Blood Gas, Arterial, STAT (10/27/2024 12:13 AM EDT) O2 Sat, Arterial 100 10/27/2024 12:23 AM EDT [facility] FIO2 30 10/27/2024 12:23 AM EDT [facility] pH, Arterial 7.32(L) 7.35 - 7.45 10/27/2024 12:23 AM EDT [facility] pCO2, Arterial 37 35 - 45 mm Hg 10/27/2024 12:23 AM EDT [facility] pO2, Arterial 137(H) 80 - 100 mm Hg 10/27/2024 12:23 AM EDT [facility] HCO3, Arterial 20(L) 22 - 26 mmol/L 10/27/2024 12:23 AM EDT [facility] CO2 Content,Arteri al 20(L) 23 - 27 mmol/L 10/27/2024 12:23 AM EDT [facility] Base Excess, Arterial -6.4(L) -2.0 - 3.0 mmol/L 10/27/2024 12:23 AM EDT [facility] %HBO2, Arterial 96.2 95.0 - 98.0 % 10/27/2024 12:23 AM EDT [facility] Carboxyhemoglo bin, Arterial 1.9 % 10/27/2024 12:23 AM EDT [facility] Comment: CARBOXYHEMOGLOBIN (CO) REFERENCE RANGES: Non-Smokers: <2 % Smokers: <8 % TOXIC: >20 % Methemoglobin, Arterial 1.5 0.0 - 1.5 % 10/27/2024 12:23 AM EDT [facility] Reduced hemoglobin, Arterial 0.4 0.0 - 5.0 % 10/27/2024 12:23 AM EDT [facility] Blood, Arterial 10/27/2024 1 2:13 AM EDT 10/27/2024 12:18 AM EDT us John Pina MD LAB BLOOD ORDERABLES Final Resu lt [facility] [address] [place] [address], [facility] * (ABNORMAL) TEG-Bypass/ECMO/Liver HN (Factor function, Platelet/Fibrin Clot Strength w/Clot Breakdown, Heparinase In All Channels) (10/27/2024 12:13 AM EDT) Citrated Kaolin Reaction Time (TEGECMOLIVER) 9.1 4.6 - 9.1 minutes 10/27/2024 1:43 AM EDT [facility] Citrated Kaolin W/Heparinase Reaction Time (TEGECMOLIVER) 9.7(H) 4.3 - 8.3 minutes 10/27/2024 1:43 AM EDT [facility] Citrated Kaolin Maximum Amplitude (TEGECMOLIVER) <40.0(L) 52.0 - 69.0 mm 10/27/2024 1:43 AM EDT [facility] Citrated Functional Fibrinogen W/Heparinase Maximum Amplitude(TEGEC MOLIVER) 11.9(L) 15.0 - 34.0 mm 10/27/2024 1:43 AM EDT [facility] Citrated Rapid Teg W/Heparinase Maximum Amplitude (TEGECMOLIVER) 31.6(L) 53.0 - 69.0 mm 10/27/2024 1:43 AM EDT [facility] Citrated Kaolin w/Heparinase Percent Lysis (TEGECMOLIVER) 0.0 0.0 - 3.2 % 10/27/2024 1:43 AM EDT [facility] Whole Blood (Citrate) 10/27/2024 12:13 AM EDT 10/27/2024 12:18 AM EDT Kemar Sahni MD LAB BLOOD ORDERABLES Final Result Performing Organization Address City/State/[facility] Co de Phone Number [facility] [address] * (ABNORMAL) Lactic Acid (10/27/2024 12:13 AM EDT) Lactate 0.2(L) 0.5 - 2.2 mmol/L 10/27/2024 12:59 AM EDT [facility] Plasma 10/27/2024 12:1 3 AM EDT 10/27/2024 12:31 AM EDT Kemar Sahni MD LAB BLOOD ORDERABLES Final Result [facility] [address] [facility]. [address] * Magnesium (10/27/2024 12:13 AM EDT) Magnesium 1.8 1.5 - 2.5 mg/dL 10/27/2024 12:52 AM EDT [facility] Plasma 10/27/2024 12:1 3 AM EDT 10/27/2024 12:29 AM EDT Kemar Sanhi MD LAB BLOOD ORDERABLES Final Result Performing Organization Address City/State/[facility] Co de Phone Number [facility] [address] [facility]. [address] * (ABNORMAL) Hepatic Function Panel (10/27/2024 12:13 AM EDT) Total Bilirubin 1.6(H) 0.0 - 1.5 mg/dL 10/27/2024 12:52 AM EDT [facility] Bilirubin, Direct 1.17(H) 0.00 - 0.40 mg/dL 10/27/2024 12:52 AM EDT [facility] AST 157(H) 13 - 39 U/L 10/27/2024 12:52 AM EDT [facility] ALT 261(H) 7 - 52 U/L 10/27/2024 12:52 AM EDT [facility] Alkaline Phosphatase 26(L) 36 - 125 U/L 10/27/2024 12:52 AM EDT [facility] Total Protein 3.8(L) 6.4 - 8.9 g/dL 10/27/2024 12:52 AM EDT [facility] Albumin 2.8(L) 3.5 - 5.7 g/dL 10/27/2024 12:52 AM EDT [facility] Bilirubin, Indirect 0.43 0.00 - 1.10 mg/dL 10/27/2024 12:52 AM EDT [facility] Plasma 10/27/2024 12:1 3 AM EDT 10/27/2024 12:29 AM EDT Kemar Sahni MD LAB BLOOD ORDERABLES Final Result Performing Organization Address [facility] Co de Phone Number [facility] [address] * (ABNORMAL) Protime-INR (10/27/2024 12:13 AM EDT) Protime 18.6(H) 12.1 - 15.1 seconds 10/27/2024 12:43 AM EDT [facility] INR 1.5(H) 0.9 - 1.1 10/27/2024 12:43 AM EDT [facility] Comment: RECOMMENDED THERAPEUTIC RANGES USING INR : Stable oral anticoagulant therapy: 2.0 - 3.0 Mechanical prosthetic heart valve: 2.5 - 3.5 Recurrent acute myocardial infarction: 2.5 - 3.5 Plasma 10/27/2024 12:1 3 AM EDT 10/27/2024 12:29 AM EDT Kemar Sahni MD LAB BLOOD ORDERABLES Final Result Performing Organization Address [facility] [[email or web address]] de Phone Number [facility] [address] [facility]. [address] * (ABNORMAL) CBC (10/27/2024 12:13 AM EDT) WBC 5.0 3.8 - 10.8 10E3/uL 10/27/2024 12:59 AM EDT [facility] RBC 2.70(L) 4.20 - 5.80 10E6/uL 10/27/2024 12:59 AM EDT [facility] Hemoglobin 8.5(L) 13.2 - 17.1 g/dL 10/27/2024 12:59 AM EDT [facility] Hematocrit 23.9(L) 38.5 - 50.0 % 10/27/2024 12:59 AM EDT [facility] MCV 88.5 80.0 - 100.0 fL 10/27/2024 12:59 AM EDT [facility] MCH 31.5 27.0 - 33.0 pg 10/27/2024 12:59 AM EDT [facility] MCHC 35.6 32.0 - 36.0 g/dL 10/27/2024 12:59 AM EDT [facility] RDW 20.6(H) 11.0 - 15.0 % 10/27/2024 12:59 AM EDT [facility] Platelets 35(L) 140 - 400 10E3/uL 10/27/2024 12:59 AM EDT [facility] Comment: CNV Specimen checked for clots. None detected. MPV 7.6 7.5 - 11.5 fL 10/27/2024 12:59 AM EDT [facility] Whole Blood 10/27/2024 12:1 3 AM EDT 10/27/2024 12:29 AM EDT Kemar Sahni MD LAB BLOOD ORDERABLES Final Result Performing Organization Address City/State/[facility] Co de Phone Number [facility] [address] * (ABNORMAL) Renal Function Panel w/EGFR (10/27/2024 12:13 AM EDT) Sodium 141 133 - 146 mmol/L 10/27/2024 12:52 AM EDT [facility] Potassium 3.2(L) 3.5 - 5.3 mmol/L 10/27/2024 12:52 AM EDT [facility] Chloride 109 98 - 110 mmol/L 10/27/2024 12:52 AM EDT [facility] CO2 21 21 - 33 mmol/L 10/27/2024 12:52 AM EDT [facility] Anion Gap 11 3 - 16 mmol/L 10/27/2024 12:52 AM EDT [facility] BUN 64(H) 7 - 25 mg/dL 10/27/2024 12:52 AM EDT [facility] Creatinine 2.58(H) 0.60 - 1.30 mg/dL 10/27/2024 12:52 AM EDT [facility] Glucose 126(H) 70 - 100 mg/dL 10/27/2024 12:52 AM EDT [facility] Calcium 8.9 8.6 - 10.3 mg/dL 10/27/2024 12:52 AM EDT [facility] Phosphorus 5.3(H) 2.1 - 4.7 mg/dL 10/27/2024 12:52 AM EDT [facility] Albumin 2.8(L) 3.5 - 5.7 g/dL 10/27/2024 12:52 AM EDT [facility] Osmolality, Calculated 312(H) 278 - 305 mOsm/kg 10/27/2024 12:52 AM EDT [facility] EGFR 31 10/27/2024 12:52 AM EDT [facility] Comment:As [...] MD LAB BLOOD ORDERABLES Final Result [facility] [address] [id number], [facility] * (ABNORMAL) POC Glucose Monitoring Device (10/27/2024 12:08 AM EDT) POC Glucose Monitoring Device 121(H) 70 - 100 mg/dL 10/27/2024 12:08 AM EDT [facility] Blood 10/27/2024 12:0 8 AM EDT 10/27/2024 12:08 AM EDT Semaj Mcnair III, MD POINT OF CARE TEST ORDERABLES Final Result [facility] [address] [facility]. [address] * (ABNORMAL) POC Glucose Monitoring Device (10/26/2024 11:15 PM EDT) [facility] POC Glucose Monitoring Device 120(H) 70 - 100 mg/dL 10/26/2024 11:15 PM EDT [facility] Blood 10/26/2024 11:1 5 PM EDT 10/26/2024 11:15 PM EDT Semaj Mcnair III, MD POINT OF CARE TEST ORDERABLES Final Result Performing Organization Address [facility] Co de Phone Number [facility] [address] [facility]. [address] * (ABNORMAL) TEG-Bypass/ECMO/Liver HN (Factor function, Platelet/Fibrin Clot Strength w/Clot Breakdown, Heparinase In All Channels) (10/26/2024 10:36 PM EDT) Citrated Kaolin Reaction Time (TEGECMOLIVER) 10.0(H) 4.6 - 9.1 minutes 10/26/2024 11:53 PM EDT [facility] Citrated Kaolin W/Heparinase Reaction Time (TEGECMOLIVER) 10.2(H) 4.3 - 8.3 minutes 10/26/2024 11:53 PM EDT [facility] Citrated Kaolin Maximum Amplitude (TEGECMOLIVER) <40.0(L) 52.0 - 69.0 mm 10/26/2024 11:53 PM EDT [facility] Citrated Functional Fibrinogen W/Heparinase Maximum Amplitude(TEGEC MOLIVER) 11.3(L) 15.0 - 34.0 mm 10/26/2024 11:53 PM EDT [facility] Citrated Rapid Teg W/Heparinase Maximum Amplitude (TEGECMOLIVER) 41.8(L) 53.0 - 69.0 mm 10/26/2024 11:53 PM EDT [facility] Citrated Kaolin w/Heparinase Percent Lysis (TEGECMOLIVER) 0.0 0.0 - 3.2 % 10/26/2024 11:53 PM EDT [facility] Whole Blood (Citrate) 10/26/2024 10:36 PM EDT 10/26/2024 10:43 PM EDT Kemar Sahni MD LAB BLOOD ORDERABLES Final Result [facility] [address] [facility]. [address] * (ABNORMAL) POC Glucose Monitoring Device (10/26/2024 10:14 PM EDT) POC Glucose Monitoring Device 124(H) 70 - 100 mg/dL 10/26/2024 11:11 PM EDT [facility] Blood 10/26/2024 10:1 4 PM EDT 10/26/2024 11:11 PM EDT Semaj Mcnair III, MD POINT OF CARE TEST ORDERABLES Final Result Performing Organization Address [facility] Co de Phone Number [facility] [address] [facility]. [address] * (ABNORMAL) POC Glucose Monitoring Device (10/26/2024 9:16 PM EDT) POC Glucose Monitoring Device 119(H) 70 - 100 mg/dL 10/26/2024 9:18 PM EDT [facility] Blood 10/26/2024 9:16 PM EDT 10/26/2024 9:18 PM EDT Semaj Mcnair III, MD POINT OF CARE TEST ORDERABLES Final Result Performing Organization Address City/[facility]/ZIP Co de Phone Number [facility] [address] [facility]. [address] * (ABNORMAL) POC Glucose Monitoring Device (10/26/2024 8:05 PM EDT) POC Glucose Monitoring Device 113(H) 70 - 100 mg/dL 10/26/2024 8:06 PM EDT [facility] Blood 10/26/2024 8:05 PM EDT 10/26/2024 8:06 PM EDT Semaj Mcnair III, MD POINT OF CARE TEST ORDERABLES Final Result Performing Organization Address [facility] Co de Phone Number [facility] [address] * (ABNORMAL) POC Glucose Monitoring Device (10/26/2024 7:02 PM EDT) POC Glucose Monitoring Device 111(H) 70 - 100 mg/dL 10/26/2024 7:03 PM EDT [facility] Blood 10/26/2024 7:02 PM EDT 10/26/2024 7:03 PM EDT Semaj Mcnair III, MD POINT OF CARE TEST ORDERABLES Final Result Performing Organization Address [facility] Co de Phone Number [facility] [address] * Transfuse Cryoprecipitate Transfusion Rate: Per dept routine (10/26/2024 6:39 PM EDT) John Pina MD NURSING TREATMENT ORDERABLES - BLOOD ADMIN Final Result Performing Organization Address [facility] Co de Phone Number EXTERNAL * Transfuse Cryoprecipitate Transfusion Rate: Per dept routine, 1 Units (10/26/2024 6:39 PM EDT) John Pina MD NURSING TREATMENT ORDERABLES - BLOOD ADMIN Final Result Performing Organization Address [facility] Co de Phone Number EXTERNAL * (ABNORMAL) POC Glucose Monitoring Device (10/26/2024 6:33 PM EDT) POC Glucose Monitoring Device 110(H) 70 - 100 mg/dL 10/26/2024 6:34 PM EDT [facility] Blood 10/26/2024 6:33 PM EDT 10/26/2024 6:34 PM EDT us Semaj Mcnair III, MD POINT OF CARE TEST ORDERABLES Final Result Performing Organization Address City/[facility]/ZIP Co de Phone Number [facility] [address] [facility]. [address] * Transfuse Cryoprecipitate Transfusion Rate: Per dept routine (10/26/2024 6:22 PM EDT) us John Pina MD NURSING TREATMENT ORDERABLES - BLOOD ADMIN Final Result Performing Organization Address [facility] Co de Phone Number EXTERNAL * Transfuse Cryoprecipitate Transfusion Rate: Per dept routine, 1 Units (10/26/2024 6:22 PM EDT) us John Pina MD NURSING TREATMENT ORDERABLES - BLOOD ADMIN Final Result Performing Organization Address City/[facility] Co de Phone Number EXTERNAL * (ABNORMAL) POC Glucose Monitoring Device (10/26/2024 6:17 PM EDT) POC Glucose Monitoring Device 104(H) 70 - 100 mg/dL 10/26/2024 6:18 PM EDT [facility] Blood 10/26/2024 6:17 PM EDT 10/26/2024 6:18 PM EDT us Semaj Mcnair III, MD POINT OF CARE TEST ORDERABLES Final Result Performing Organization Address [facility] Co de Phone Number [facility] [address] [facility]. [address] * (ABNORMAL) POC Glucose Monitoring Device (10/26/2024 4:58 PM EDT) POC Glucose Monitoring Device 115(H) 70 - 100 mg/dL 10/26/2024 4:59 PM EDT [facility] Blood 10/26/2024 4:58 PM EDT 10/26/2024 4:58 PM EDT us Semaj Mcnair III, MD POINT OF CARE TEST ORDERABLES Final Result Performing Organization Address [facility] Co de Phone Number [facility] [address] [place] [address] * (ABNORMAL) Calcium Free, Serum (10/26/2024 4:42 PM EDT) Free Calcium, Ser 5.67(H) 4.40 - 5.40 mg/dL 10/26/2024 4:55 PM EDT [facility] Comment:Free calcium levels vary inversely with pH by approximately 5% for each 0.1 unit of pH change. Assay results have been normalized to pH = 7.40. Serum 10/26/2024 4:42 PM EDT 10/26/2024 4:47 PM EDT Narrative [facility] - 10/26/2024 4:55 PM EDT This test has been developed and its performance characteristics determined by [facility] which is certified under [...] ORDERABLES Final Resu lt Performing Organization Address [facility] Co de Phone Number [facility] [address] [place] [address], [facility] * Repeat Crossmatch (Recipient Sample) (10/26/2024 4:42 PM EDT) Repeat Cx - Recipient The request and specimen(s) for this test have been received and transported to the [facility] at [address] [place] [address]. The [facility] will report results directly to the client. 10/26/2024 4:49 PM EDT [facility] Whole Blood 10/26/2024 4:42 PM EDT 10/26/2024 4:49 PM EDT Narrative [facility] - 10/26/2024 4:49 PM EDT To be sent to [facility] for Donor UNOS#[id number] cross match with Blairjohn Gilbert Sveta Judge MD LAB BLOOD ORDERABLES Final Resu lt [facility] [address] * (ABNORMAL) Lactic Acid (10/26/2024 4:42 PM EDT) Lactate 0.3(L) 0.5 - 2.2 mmol/L 10/26/2024 5:19 PM EDT [facility] Plasma 10/26/2024 4:42 PM EDT 10/26/2024 4:47 PM EDT Kemar Sahni MD LAB BLOOD ORDERABLES Final Result Performing Organization Address City/[facility]/ZIP Co de Phone Number [facility] [address] * Magnesium (10/26/2024 4:42 PM EDT) Magnesium 2.0 1.5 - 2.5 mg/dL 10/26/2024 5:24 PM EDT [facility] Plasma 10/26/2024 4:42 PM EDT 10/26/2024 4:47 PM EDT Kemar Sahni MD LAB BLOOD ORDERABLES Final Result [facility] [address] [facility]. [address] * (ABNORMAL) Hepatic Function Panel (10/26/2024 4:42 PM EDT) Total Bilirubin 2.3(H) 0.0 - 1.5 mg/dL 10/26/2024 5:24 PM EDT [facility] Bilirubin, Direct 1.85(H) 0.00 - 0.40 mg/dL 10/26/2024 5:24 PM EDT [facility] AST 374(H) 13 - 39 U/L 10/26/2024 5:24 PM EDT [facility] ALT 458(H) 7 - 52 U/L 10/26/2024 5:24 PM EDT [facility] Alkaline Phosphatase 39 36 - 125 U/L 10/26/2024 5:24 PM EDT [facility] Total Protein 3.8(L) 6.4 - 8.9 g/dL 10/26/2024 5:24 PM EDT [facility] Albumin 3.0(L) 3.5 - 5.7 g/dL 10/26/2024 5:24 PM EDT [facility] Bilirubin, Indirect 0.45 0.00 - 1.10 mg/dL 10/26/2024 5:24 PM EDT [facility] Plasma 10/26/2024 4:42 PM EDT 10/26/2024 4:47 PM EDT Kemar Sahni MD LAB BLOOD ORDERABLES Final Result Performing Organization Address City/State/[facility] Co de Phone Number [facility] [address] * (ABNORMAL) Protime-INR (10/26/2024 4:42 PM EDT) Protime 20.3(H) 12.1 - 15.1 seconds 10/26/2024 5:12 PM EDT [facility] INR 1.7(H) 0.9 - 1.1 10/26/2024 5:12 PM EDT [facility] Comment: RECOMMENDED THERAPEUTIC RANGES USING INR : Stable oral anticoagulant therapy: 2.0 - 3.0 Mechanical prosthetic heart valve: 2.5 - 3.5 Recurrent acute myocardial infarction: 2.5 - 3.5 Plasma 10/26/2024 4:42 PM EDT 10/26/2024 4:47 PM EDT Kemar Sahni MD LAB BLOOD ORDERABLES Final Result [facility] [address] * (ABNORMAL) CBC (10/26/2024 4:42 PM EDT) WBC 10.0 3.8 - 10.8 10E3/uL 10/26/2024 5:00 PM EDT [facility] RBC 3.44(L) 4.20 - 5.80 10E6/uL 10/26/2024 5:00 PM EDT [facility] Hemoglobin 10.5(L) 13.2 - 17.1 g/dL 10/26/2024 5:00 PM EDT [facility] Hematocrit 30.2(L) 38.5 - 50.0 % 10/26/2024 5:00 PM EDT [facility] MCV 87.7 80.0 - 100.0 fL 10/26/2024 5:00 PM EDT [facility] MCH 30.6 27.0 - 33.0 pg 10/26/2024 5:00 PM EDT [facility] MCHC 34.8 32.0 - 36.0 g/dL 10/26/2024 5:00 PM EDT [facility] RDW 20.1(H) 11.0 - 15.0 % 10/26/2024 5:00 PM EDT [facility] Platelets 48(L) 140 - 400 10E3/uL 10/26/2024 5:00 PM EDT [facility] Comment:Specimen checked for clots. None detected. MPV 7.9 7.5 - 11.5 fL 10/26/2024 5:00 PM EDT [facility] Whole Blood 10/26/2024 4:42 PM EDT 10/26/2024 4:47 PM EDT Kemar Sahni MD LAB BLOOD ORDERABLES Final Result [facility] [address] * (ABNORMAL) Renal Function Panel w/EGFR (10/26/2024 4:42 PM EDT) Sodium 142 133 - 146 mmol/L 10/26/2024 5:24 PM EDT [facility] Potassium 3.3(L) 3.5 - 5.3 mmol/L 10/26/2024 5:24 PM EDT [facility] Chloride 109 98 - 110 mmol/L 10/26/2024 5:24 PM EDT [facility] CO2 23 21 - 33 mmol/L 10/26/2024 5:24 PM EDT [facility] Anion Gap 10 3 - 16 mmol/L 10/26/2024 5:24 PM EDT [facility] BUN 63(H) 7 - 25 mg/dL 10/26/2024 5:24 PM EDT [facility] Creatinine 2.85(H) 0.60 - 1.30 mg/dL 10/26/2024 5:24 PM EDT [facility] Glucose 127(H) 70 - 100 mg/dL 10/26/2024 5:24 PM EDT [facility] Calcium 8.9 8.6 - 10.3 mg/dL 10/26/2024 5:24 PM EDT [facility] Phosphorus 4.4 2.1 - 4.7 mg/dL 10/26/2024 5:24 PM EDT [facility] Albumin 3.0(L) 3.5 - 5.7 g/dL 10/26/2024 5:24 PM EDT [facility] Osmolality, Calculated 314(H) 278 - 305 mOsm/kg 10/26/2024 5:24 PM EDT [facility] EGFR 28 10/26/2024 5:24 PM EDT [facility] Comment:As [...] BLOOD ORDERABLES Final Result Performing Organization Address City/[facility]/ZIP Co de Phone Number [facility] [address] [facility]. [address] * (ABNORMAL) POC Glucose Monitoring Device (10/26/2024 3:54 PM EDT) POC Glucose Monitoring Device 126(H) 70 - 100 mg/dL 10/26/2024 3:55 PM EDT [facility] Blood 10/26/2024 3:54 PM EDT 10/26/2024 3:55 PM EDT Semaj Mcnair III, MD POINT OF CARE TEST ORDERABLES Final Result Performing Organization Address [facility] Co de Phone Number [facility] [address] [facility] * (ABNORMAL) POC Glucose Monitoring Device (10/26/2024 3:06 PM EDT) POC Glucose Monitoring Device 144(H) 70 - 100 mg/dL 10/26/2024 3:14 PM EDT [facility] Blood 10/26/2024 3:06 PM EDT 10/26/2024 3:13 PM EDT Semaj Mcnair III, MD POINT OF CARE TEST ORDERABLES Final Result Performing Organization Address City/[facility] Co de Phone Number [facility] [address] [facility] * (ABNORMAL) TEG-Bypass/ECMO/Liver HN (Factor function, Platelet/Fibrin Clot Strength w/Clot Breakdown, Heparinase In All Channels) (10/26/2024 3:03 PM EDT) [facility] Signature Citrated Kaolin Reaction Time (TEGECMOLIVER) 8.2 4.6 - 9.1 minutes 10/26/2024 4:43 PM EDT [facility] Citrated Kaolin W/Heparinase Reaction Time (TEGECMOLIVER) 8.2 4.3 - 8.3 minutes 10/26/2024 4:43 PM EDT [facility] Citrated Kaolin Maximum Amplitude (TEGECMOLIVER) 41.7(L) 52.0 - 69.0 mm 10/26/2024 4:43 PM EDT [facility] Citrated Functional Fibrinogen W/Heparinase Maximum Amplitude(TEGEC MOLIVER) 11.4(L) 15.0 - 34.0 mm 10/26/2024 4:43 PM EDT [facility] Citrated Rapid Teg W/Heparinase Maximum Amplitude (TEGECMOLIVER) 38.6(L) 53.0 - 69.0 mm 10/26/2024 4:43 PM EDT [facility] Citrated Kaolin w/Heparinase Percent Lysis (TEGECMOLIVER) 0.0 0.0 - 3.2 % 10/26/2024 4:43 PM EDT [facility] Whole Blood (Citrate) 10/26/2024 3:03 PM EDT 10/26/2024 3:10 PM EDT us Jani Mooney MD LAB BLOOD ORDERABLES Final Resul t Performing Organization Address City/State/[facility] Co de Phone Number [facility] [address] [id number] * ECG 12 lead (MUSE) (10/26/2024 2:19 PM EDT) 10/26/2024 2:19 PM EDT Narrative MUSE - 10/27/2024 10:09 AM EDT Ventricular Rate: 105 BPM Atrial Rate: 105 BPM P-R Interval: 128 ms QRS Duration: 94 ms QT: 474 ms QTc: 626 ms R Henderson: -37 degrees T Henderson: 35 degrees Diagnosis Line: Critical Test Result: Long QTc ^ SINUS TACHYCARDIA ^ LEFT AXIS DEVIATION, LEFT ANTERIOR HEMIBLOCK ^ PROLONGED QT ^ ABNORMAL ECG ^ ^ Confirmed by MD [facility], [facility] on 10/27/2024 10:09:25 AM us Quinten Best MD ECG ORDERABLES Final Result MUSE * (ABNORMAL) POC Glucose Monitoring Device (10/26/2024 2:00 PM EDT) POC Glucose Monitoring Device 183(H) 70 - 100 mg/dL 10/26/2024 2:01 PM EDT [facility] Blood 10/26/2024 2:00 PM EDT 10/26/2024 2:01 PM EDT Semaj Mcnair III, MD POINT OF CARE TEST ORDERABLES Final Result Performing Organization Address [facility] Co de Phone Number [facility] [address] * (ABNORMAL) POC Glucose Monitoring Device (10/26/2024 1:05 PM EDT) POC Glucose Monitoring Device 212(H) 70 - 100 mg/dL 10/26/2024 1:06 PM EDT [facility] Blood 10/26/2024 1:05 PM EDT 10/26/2024 1:06 PM EDT us Semaj Mcnair III, MD POINT OF CARE TEST ORDERABLES Final Result Performing Organization Address [facility]/ZIP Co de Phone Number [facility] [address] * Transfuse Cryoprecipitate Has consent been obtained? Yes; Transfusion Rate: Per dept routine (10/26/2024 12:25 PM EDT) Shay Sifuentes MD NURSING TREATMENT ORDERABLES - BLOOD ADMIN Final Result EXTERNAL * Transfuse Cryoprecipitate Has consent been obtained? Yes; Transfusion Rate: Per dept routine, 1 Units (10/26/2024 12:25 PM EDT) Shay Sifuentes MD NURSING TREATMENT ORDERABLES - BLOOD ADMIN Final Result Performing Organization Address City/[facility] Co de Phone Number EXTERNAL * (ABNORMAL) POC Glucose Monitoring Device (10/26/2024 12:06 PM EDT) POC Glucose Monitoring Device 226(H) 70 - 100 mg/dL 10/26/2024 12:07 PM EDT [facility] Blood 10/26/2024 12:0 6 PM EDT 10/26/2024 12:07 PM EDT Semaj Mcnair III, MD POINT OF CARE TEST ORDERABLES Final Result Performing Organization Address [facility] Co de Phone Number [facility] [address] * Transfuse Cryoprecipitate Transfusion Rate: Per dept routine (10/26/2024 12:01 PM EDT) John Pina MD NURSING TREATMENT ORDERABLES - BLOOD ADMIN Final Result Performing Organization Address [facility] [[email or web address]] de Phone Number EXTERNAL * Transfuse Cryoprecipitate Transfusion Rate: Per dept routine, 1 Units (10/26/2024 12:01 PM EDT) John Pina MD NURSING TREATMENT ORDERABLES - BLOOD ADMIN Final Result Performing Organization Address City/[facility] [[email or web address]] de Phone Number EXTERNAL * Lactic Acid (10/26/2024 10:48 AM EDT) Lactate 1.2 0.5 - 2.2 mmol/L 10/26/2024 11:27 AM EDT [facility] Plasma 10/26/2024 10:4 8 AM EDT 10/26/2024 10:53 AM EDT Kemar Sahni MD LAB BLOOD ORDERABLES Final Result Performing Organization Address City/[facility] Co de Phone Number [facility] [address] * Magnesium (10/26/2024 10:48 AM EDT) Magnesium 2.0 1.5 - 2.5 mg/dL 10/26/2024 11:26 AM EDT [facility] Plasma 10/26/2024 10:4 8 AM EDT 10/26/2024 10:53 AM EDT Kemar Sahni MD LAB BLOOD ORDERABLES Final Result [facility] [address] * (ABNORMAL) Hepatic Function Panel (10/26/2024 10:48 AM EDT) Total Bilirubin 5.9(H) 0.0 - 1.5 mg/dL 10/26/2024 11:26 AM EDT [facility] Bilirubin, Direct 4.74(H) 0.00 - 0.40 mg/dL 10/26/2024 11:26 AM EDT [facility] AST 872(H) 13 - 39 U/L 10/26/2024 11:26 AM EDT [facility] ALT 736(H) 7 - 52 U/L 10/26/2024 11:26 AM EDT [facility] Alkaline Phosphatase 56 36 - 125 U/L 10/26/2024 11:26 AM EDT [facility] Total Protein 3.5(L) 6.4 - 8.9 g/dL 10/26/2024 11:26 AM EDT [facility] Albumin 2.5(L) 3.5 - 5.7 g/dL 10/26/2024 11:26 AM EDT [facility] Bilirubin, Indirect 1.16(H) 0.00 - 1.10 mg/dL 10/26/2024 11:26 AM EDT [facility] Plasma 10/26/2024 10:4 8 AM EDT 10/26/2024 10:53 AM EDT Kemar Sahni MD LAB BLOOD ORDERABLES Final Result Performing Organization Address City/[facility]/ZIP Co de Phone Number [facility] [address] [facility]. [address] * (ABNORMAL) Protime-INR (10/26/2024 10:48 AM EDT) Protime 23.0(H) 12.1 - 15.1 seconds 10/26/2024 11:26 AM EDT [facility] INR 2.0(H) 0.9 - 1.1 10/26/2024 11:26 AM EDT [facility] Comment: RECOMMENDED THERAPEUTIC RANGES USING INR : Stable oral anticoagulant therapy: 2.0 - 3.0 Mechanical prosthetic heart valve: 2.5 - 3.5 Recurrent acute myocardial infarction: 2.5 - 3.5 Plasma 10/26/2024 10:4 8 AM EDT 10/26/2024 10:53 AM EDT Kemar Sahni MD LAB BLOOD ORDERABLES Final Result Performing Organization Address [facility] Co de Phone Number [facility] [address] [facility]. [address] * (ABNORMAL) CBC (10/26/2024 10:48 AM EDT) WBC 17.3(H) 3.8 - 10.8 10E3/uL 10/26/2024 11:14 AM EDT [facility] RBC 4.22 4.20 - 5.80 10E6/uL 10/26/2024 11:14 AM EDT [facility] Hemoglobin 12.8(L) 13.2 - 17.1 g/dL 10/26/2024 11:14 AM EDT [facility] Hematocrit 37.2(L) 38.5 - 50.0 % 10/26/2024 11:14 AM EDT [facility] MCV 88.3 80.0 - 100.0 fL 10/26/2024 11:14 AM EDT [facility] MCH 30.4 27.0 - 33.0 pg 10/26/2024 11:14 AM EDT [facility] MCHC 34.4 32.0 - 36.0 g/dL 10/26/2024 11:14 AM EDT [facility] RDW 20.8(H) 11.0 - 15.0 % 10/26/2024 11:14 AM EDT [facility] Platelets 109(L) 140 - 400 10E3/uL 10/26/2024 11:14 AM EDT [facility] MPV 7.5 7.5 - 11.5 fL 10/26/2024 11:14 AM EDT [facility] Whole Blood 10/26/2024 10:4 8 AM EDT 10/26/2024 10:53 AM EDT Kemar Sahni MD LAB BLOOD ORDERABLES Final Result [facility] [address] [place] [address], [facility] * (ABNORMAL) Blood gas, arterial (10/26/2024 10:48 AM EDT) O2 Sat, Arterial 97 10/26/2024 10:54 AM EDT [facility] FIO2 35% 10/26/2024 10:54 AM EDT [facility] pH, Arterial 7.37 7.35 - 7.45 10/26/2024 10:54 AM EDT [facility] pCO2, Arterial 36 35 - 45 mm Hg 10/26/2024 10:54 AM EDT [facility] pO2, Arterial 91 80 - 100 mm Hg 10/26/2024 10:54 AM EDT [facility] HCO3, Arterial 22 22 - 26 mmol/L 10/26/2024 10:54 AM EDT [facility] CO2 Content,Arteri al 22(L) 23 - 27 mmol/L 10/26/2024 10:54 AM EDT [facility] Base Excess, Arterial -3.9(L) -2.0 - 3.0 mmol/L 10/26/2024 10:54 AM EDT [facility] %HBO2, Arterial 94.8(L) 95.0 - 98.0 % 10/26/2024 10:54 AM EDT [facility] Carboxyhemoglo bin, Arterial 1.9 % 10/26/2024 10:54 AM EDT [facility] Comment: CARBOXYHEMOGLOBIN (CO) REFERENCE RANGES: Non-Smokers: <2 % Smokers: <8 % TOXIC: >20 % Methemoglobin, Arterial 0.7 0.0 - 1.5 % 10/26/2024 10:54 AM EDT [facility] Reduced hemoglobin, Arterial 2.5 0.0 - 5.0 % 10/26/2024 10:54 AM EDT [facility] Blood, Arterial 10/26/2024 1 0:48 AM EDT 10/26/2024 10:52 AM EDT us Shay Sifuentes MD LAB BLOOD ORDERABLES Final Resu lt [facility] [address] * (ABNORMAL) Renal Function Panel w/EGFR (10/26/2024 10:48 AM EDT) Sodium 139 133 - 146 mmol/L 10/26/2024 11:26 AM EDT [facility] Potassium 2.9(LL) 3.5 - 5.3 mmol/L 10/26/2024 11:26 AM EDT [facility] Comment:K CRITICAL VALUE WAS PREVIOUSLY CALLED Chloride 107 98 - 110 mmol/L 10/26/2024 11:26 AM EDT [facility] CO2 22 21 - 33 mmol/L 10/26/2024 11:26 AM EDT [facility] Anion Gap 10 3 - 16 mmol/L 10/26/2024 11:26 AM EDT [facility] BUN 61(H) 7 - 25 mg/dL 10/26/2024 11:26 AM EDT [facility] Creatinine 2.78(H) 0.60 - 1.30 mg/dL 10/26/2024 11:26 AM EDT [facility] Glucose 253(H) 70 - 100 mg/dL 10/26/2024 11:26 AM EDT [facility] Calcium 8.8 8.6 - 10.3 mg/dL 10/26/2024 11:26 AM EDT [facility] Phosphorus 4.1 2.1 - 4.7 mg/dL 10/26/2024 11:26 AM EDT [facility] Albumin 2.5(L) 3.5 - 5.7 g/dL 10/26/2024 11:26 AM EDT [facility] Osmolality, Calculated 314(H) 278 - 305 mOsm/kg 10/26/2024 11:26 AM EDT [facility] EGFR 28 10/26/2024 11:26 AM EDT [facility] Comment:As [...] BLOOD ORDERABLES Final Result Performing Organization Address City/State/[facility] Co de Phone Number [facility] [address] [place], [place] [address] * (ABNORMAL) POC Glucose Monitoring Device (10/26/2024 10:47 AM EDT) POC Glucose Monitoring Device 234(H) 70 - 100 mg/dL 10/26/2024 10:48 AM EDT [facility] Blood 10/26/2024 10:4 7 AM EDT 10/26/2024 10:48 AM EDT Semaj Mcnair III, MD POINT OF CARE TEST ORDERABLES Final Result [facility] [address] * CARISA Rhythm Strip - Scan (10/26/2024 10:45 AM EDT) us Scanning Uchhim SCAN DOCS - NO RESULTS Final Res ult * (ABNORMAL) POC Glucose Monitoring Device (10/26/2024 10:08 AM EDT) POC Glucose Monitoring Device 235(H) 70 - 100 mg/dL 10/26/2024 10:09 AM EDT [facility] Blood 10/26/2024 10:0 8 AM EDT 10/26/2024 10:09 AM EDT us Semaj Mcnair III, MD POINT OF CARE TEST ORDERABLES Final Result Performing Organization Address [facility] Co de Phone Number [facility] [address] [facility]. [address] * (ABNORMAL) POC Glucose Monitoring Device (10/26/2024 8:57 AM EDT) POC Glucose Monitoring Device 232(H) 70 - 100 mg/dL 10/26/2024 8:59 AM EDT [facility] Blood 10/26/2024 8:57 AM EDT 10/26/2024 8:58 AM EDT us Semaj Mcnair III, MD POINT OF CARE TEST ORDERABLES Final Result Performing Organization Address City/[facility] Co de Phone Number [facility] [address] * ECG 12 lead (MUSE) (10/26/2024 8:16 AM EDT) 10/26/2024 8:16 AM EDT Narrative MUSE - 10/27/2024 10:09 AM EDT Ventricular Rate: 112 BPM QRS Duration: 96 ms QT: 452 ms QTc: 616 ms R Henderson: -41 degrees T Henderson: 40 degrees Diagnosis Line: Critical Test Result: Long QTc ^ SINUS TACHYCARDIA OCCASIONAL PREMATURE VENTRICULAR COMPLEXES ^ LEFT AXIS DEVIATION, LEFT ANTERIOR HEMIBLOCK ^ PROLONGED QT ^ ABNORMAL ECG ^ ^ Confirmed by MD HA, [facility] ([id number]) on 10/27/2024 10:09:18 AM Shay Sifuentes [...] Glucose Monitoring Device (10/26/2024 7:59 AM EDT) Pathologist [facility] POC Glucose Monitoring Device 229(H) 70 - 100 mg/dL 10/26/2024 8:01 AM EDT [facility] Blood 10/26/2024 7:59 AM EDT 10/26/2024 8:00 AM EDT Semaj Mcnair III, MD POINT OF CARE TEST ORDERABLES Final Result Performing Organization Address City/State/[facility] Co de Phone Number [facility] [address] * (ABNORMAL) TEG-Bypass/ECMO/Liver HN (Factor function, Platelet/Fibrin Clot Strength w/Clot Breakdown, Heparinase In All Channels) (10/26/2024 7:59 AM EDT) Citrated Kaolin Reaction Time (TEGECMOLIVER) 8.2 4.6 - 9.1 minutes 10/26/2024 10:36 AM EDT [facility] Citrated Kaolin W/Heparinase Reaction Time (TEGECMOLIVER) 8.1 4.3 - 8.3 minutes 10/26/2024 10:36 AM EDT [facility] Citrated Kaolin Maximum Amplitude (TEGECMOLIVER) 46.8(L) 52.0 - 69.0 mm 10/26/2024 10:36 AM EDT [facility] Citrated Functional Fibrinogen W/Heparinase Maximum Amplitude(TEGEC MOLIVER) 10.5(L) 15.0 - 34.0 mm 10/26/2024 10:36 AM EDT [facility] Citrated Rapid Teg W/Heparinase Maximum Amplitude (TEGECMOLIVER) 45.5(L) 53.0 - 69.0 mm 10/26/2024 10:36 AM EDT [facility] Citrated Kaolin w/Heparinase Percent Lysis (TEGECMOLIVER) 0.0 0.0 - 3.2 % 10/26/2024 10:36 AM EDT [facility] Whole Blood (Citrate) 10/26/2024 7:59 AM EDT 10/26/2024 8:05 AM EDT Shay Sifuentes MD LAB BLOOD ORDERABLES Final Resu lt Performing Organization Address City/[facility]/ZIP Co de Phone Number [facility] [address] * (ABNORMAL) POC Glucose Monitoring Device (10/26/2024 6:12 AM EDT) POC Glucose Monitoring Device 196(H) 70 - 100 mg/dL 10/26/2024 6:13 AM EDT [facility] Blood 10/26/2024 6:12 AM EDT 10/26/2024 6:13 AM EDT Semaj Mcnair III, MD POINT OF CARE TEST ORDERABLES Final Result Performing Organization Address [facility] Co de Phone Number [facility] [address] * Lactic Acid (10/26/2024 6:10 AM EDT) Lactate 1.2 0.5 - 2.2 mmol/L 10/26/2024 6:39 AM EDT [facility] Plasma 10/26/2024 6:10 AM EDT 10/26/2024 6:19 AM EDT Sveta Judge MD LAB BLOOD ORDERABLES Final Resu lt Performing Organization Address [facility] Co de Phone Number [facility] [address] * (ABNORMAL) Fibrinogen (10/26/2024 6:10 AM EDT) Fibrinogen 160(L) 218 - 406 mg/dL 10/26/2024 6:41 AM EDT [facility] Plasma 10/26/2024 6:10 AM EDT 10/26/2024 6:26 AM EDT Sveta Judge MD LAB BLOOD ORDERABLES Final Resu lt Performing Organization Address [facility] [[email or web address]] de Phone Number [facility] [address] [place] [address]. [address] * (ABNORMAL) Protime-INR (10/26/2024 6:10 AM EDT) Protime 25.0(H) 12.1 - 15.1 seconds 10/26/2024 6:41 AM EDT [facility] INR 2.2(H) 0.9 - 1.1 10/26/2024 6:41 AM EDT [facility] Comment: RECOMMENDED THERAPEUTIC RANGES USING INR : Stable oral anticoagulant therapy: 2.0 - 3.0 Mechanical prosthetic heart valve: 2.5 - 3.5 Recurrent acute myocardial infarction: 2.5 - 3.5 Plasma 10/26/2024 6:10 AM EDT 10/26/2024 6:26 AM EDT Sveta Judge MD LAB BLOOD ORDERABLES Final Resu lt Performing Organization Address [facility] [[email or web address]] de Phone Number [facility] [address] [place] [address]. [address] * (ABNORMAL) Blood gas, arterial (10/26/2024 6:10 AM EDT) O2 Sat, Arterial 98 10/26/2024 6:23 AM EDT [facility] FIO2 60 10/26/2024 6:23 AM EDT [facility] pH, Arterial 7.27(L) 7.35 - 7.45 10/26/2024 6:23 AM EDT [facility] pCO2, Arterial 47(H) 35 - 45 mm Hg 10/26/2024 6:23 AM EDT [facility] pO2, Arterial 127(H) 80 - 100 mm Hg 10/26/2024 6:23 AM EDT [facility] HCO3, Arterial 21(L) 22 - 26 mmol/L 10/26/2024 6:23 AM EDT [facility] CO2 Content,Arteri al 23 23 - 27 mmol/L 10/26/2024 6:23 AM EDT [facility] Base Excess, Arterial -5.4(L) -2.0 - 3.0 mmol/L 10/26/2024 6:23 AM EDT [facility] %HBO2, Arterial 94.6(L) 95.0 - 98.0 % 10/26/2024 6:23 AM EDT [facility] Carboxyhemoglo bin, Arterial 2.0 % 10/26/2024 6:23 AM EDT [facility] Comment: CARBOXYHEMOGLOBIN (CO) REFERENCE RANGES: Non-Smokers: <2 % Smokers: <8 % TOXIC: >20 % Methemoglobin, Arterial 1.6(H) 0.0 - 1.5 % 10/26/2024 6:23 AM EDT [facility] Reduced hemoglobin, Arterial 1.8 0.0 - 5.0 % 10/26/2024 6:23 AM EDT [facility] Blood, Arterial 10/26/2024 6 :10 AM EDT 10/26/2024 6:20 AM EDT Sveta Judge MD LAB BLOOD ORDERABLES Final Resu lt Performing Organization Address City/[facility]/ZIP Co de Phone Number [facility] [address] * Magnesium (10/26/2024 6:10 AM EDT) Magnesium 1.5 1.5 - 2.5 mg/dL 10/26/2024 7:09 AM EDT [facility] Plasma 10/26/2024 6:10 AM EDT 10/26/2024 6:23 AM EDT Sveta Judge MD LAB BLOOD ORDERABLES Final Resu lt [facility] [address] * (ABNORMAL) Hepatic Function Panel (10/26/2024 6:10 AM EDT) Total Bilirubin 6.2(H) 0.0 - 1.5 mg/dL 10/26/2024 7:11 AM EDT [facility] Bilirubin, Direct 5.26(H) 0.00 - 0.40 mg/dL 10/26/2024 7:11 AM EDT [facility] AST 1,071(H) 13 - 39 U/L 10/26/2024 7:11 AM EDT [facility] ALT 805(H) 7 - 52 U/L 10/26/2024 7:11 AM EDT [facility] Alkaline Phosphatase 55 36 - 125 U/L 10/26/2024 7:11 AM EDT [facility] Total Protein <3.0(L) 6.4 - 8.9 g/dL 10/26/2024 7:11 AM EDT [facility] Albumin 1.9(L) 3.5 - 5.7 g/dL 10/26/2024 7:11 AM EDT [facility] Bilirubin, Indirect 0.94 0.00 - 1.10 mg/dL 10/26/2024 7:11 AM EDT [facility] Plasma 10/26/2024 6:10 AM EDT 10/26/2024 6:23 AM EDT Sveta Judge MD LAB BLOOD ORDERABLES Final Resu lt [facility] [address] [facility]. [address] * (ABNORMAL) Renal Function Panel w/EGFR (10/26/2024 6:10 AM EDT) Sodium 141 133 - 146 mmol/L 10/26/2024 7:09 AM EDT [facility] Potassium 2.8(LL) 3.5 - 5.3 mmol/L 10/26/2024 7:09 AM EDT [facility] Comment:Critical value previ ously called. Chloride 106 98 - 110 mmol/L 10/26/2024 7:09 AM EDT [facility] CO2 25 21 - 33 mmol/L 10/26/2024 7:09 AM EDT [facility] Anion Gap 10 3 - 16 mmol/L 10/26/2024 7:09 AM EDT [facility] BUN 57(H) 7 - 25 mg/dL 10/26/2024 7:09 AM EDT [facility] Creatinine 2.70(H) 0.60 - 1.30 mg/dL 10/26/2024 7:09 AM EDT [facility] Glucose 210(H) 70 - 100 mg/dL 10/26/2024 7:09 AM EDT [facility] Calcium 8.7 8.6 - 10.3 mg/dL 10/26/2024 7:09 AM EDT [facility] Phosphorus 5.4(H) 2.1 - 4.7 mg/dL 10/26/2024 7:09 AM EDT [facility] Albumin 1.9(L) 3.5 - 5.7 g/dL 10/26/2024 7:11 AM EDT [facility] Osmolality, Calculated 314(H) 278 - 305 mOsm/kg 10/26/2024 7:09 AM EDT [facility] EGFR 29 10/26/2024 7:09 AM EDT [facility] Comment:As [...] ORDERABLES Final Resu lt Performing Organization Address City/[facility]/ZIP Co de Phone Number [facility] [address] * (ABNORMAL) CBC (10/26/2024 6:10 AM EDT) WBC 14.8(H) 3.8 - 10.8 10E3/uL 10/26/2024 6:46 AM EDT [facility] RBC 4.04(L) 4.20 - 5.80 10E6/uL 10/26/2024 6:46 AM EDT [facility] Hemoglobin 12.7(L) 13.2 - 17.1 g/dL 10/26/2024 6:46 AM EDT [facility] Hematocrit 35.9(L) 38.5 - 50.0 % 10/26/2024 6:46 AM EDT [facility] MCV 89.0 80.0 - 100.0 fL 10/26/2024 6:46 AM EDT [facility] MCH 31.3 27.0 - 33.0 pg 10/26/2024 6:46 AM EDT [facility] MCHC 35.2 32.0 - 36.0 g/dL 10/26/2024 6:46 AM EDT [facility] RDW 19.7(H) 11.0 - 15.0 % 10/26/2024 6:46 AM EDT [facility] Platelets 107(L) 140 - 400 10E3/uL 10/26/2024 6:46 AM EDT [facility] MPV 7.4(L) 7.5 - 11.5 fL 10/26/2024 6:46 AM EDT [facility] Whole Blood 10/26/2024 6:10 AM EDT 10/26/2024 6:26 AM EDT Sveta Judge MD LAB BLOOD ORDERABLES Final Resu lt [facility] [address] * (ABNORMAL) POC INR (10/26/2024 5:16 AM EDT) Prothrombin Time INR, POC 2.4(H) 0.8 - 1.4 10/27/2024 6:51 AM EDT [facility] Comment: Test results may vary using [...] ORDERABLES Final Result Performing Organization Address [facility] Co de Phone Number [facility] [address] [place] [address] * POC Sample Type (10/26/2024 5:14 AM EDT) Pathologist [facility] POC Sample Type Arterial 10/26/2024 5:31 AM EDT [facility] Blood, Arterial 10/26/2024 5 :14 AM EDT 10/26/2024 5:31 AM EDT us Semaj Mcnair III, MD POINT OF CARE TEST ORDERABLES Final Result Performing Organization Address [facility] Co de Phone Number [facility] [address] [place] [address]. [address] * POC Anion Gap (10/26/2024 5:14 AM EDT) POC Anion Gap, Arterial 12 3 - 16 mmol/L 10/26/2024 5:31 AM EDT [facility] Blood, Arterial 10/26/2024 5 :14 AM EDT 10/26/2024 5:31 AM EDT us Semaj Mcnair III, MD POINT OF CARE TEST ORDERABLES Final Result [facility] [address] * POC Chloride (10/26/2024 5:14 AM EDT) POC Chloride 104 98 - 110 mmol/L 10/26/2024 5:31 AM EDT [facility] Blood, Arterial 10/26/2024 5 :14 AM EDT 10/26/2024 5:31 AM EDT us Semaj Mcnair III, MD POINT OF CARE TEST ORDERABLES Final Result Performing Organization Address [facility] Co de Phone Number [facility] [address] * (ABNORMAL) POC Hemoglobin (10/26/2024 5:14 AM EDT) POC Hemoglobin 9.5(L) 14.0 - 18.0 g/dL 10/26/2024 5:31 AM EDT [facility] Blood, Arterial 10/26/2024 5 :14 AM EDT 10/26/2024 5:31 AM EDT us Semaj Mcnair III, MD POINT OF CARE TEST ORDERABLES Final Result Performing Organization Address [facility] Co de Phone Number [facility] [address] * (ABNORMAL) POC hematocrit (10/26/2024 5:14 AM EDT) POC Hematocrit 28.0(L) 40 - 52 % 10/26/2024 5:31 AM EDT [facility] Blood, Arterial 10/26/2024 5 :14 AM EDT 10/26/2024 5:31 AM EDT us Semaj Mcnair III, MD POINT OF CARE TEST ORDERABLES Final Result [facility] [address] * POC Lactate (10/26/2024 5:14 AM EDT) POC Lactate 1.76 0.50 - 2.20 mmol/L 10/26/2024 5:31 AM EDT [facility] Blood, Arterial 10/26/2024 5 :14 AM EDT 10/26/2024 5:31 AM EDT Semaj Mcnair III, MD POINT OF CARE TEST ORDERABLES Final Result [facility] [address] * (ABNORMAL) POC Glucose (10/26/2024 5:14 AM EDT) POC Glucose, Arterial 183(H) 70 - 100 mg/dL 10/26/2024 5:31 AM EDT [facility] Blood, Arterial 10/26/2024 5 :14 AM EDT 10/26/2024 5:31 AM EDT us Semaj Mcnair III, MD POINT OF CARE TEST ORDERABLES Final Result [facility] [address] * (ABNORMAL) POC Ionized Calcium (10/26/2024 5:14 AM EDT) POC Ionized Calcium 5.50(H) 4.50 - 5.30 mg/dL 10/26/2024 5:31 AM EDT [facility] Blood, Arterial 10/26/2024 5 :14 AM EDT 10/26/2024 5:31 AM EDT us Semaj Mcnair III, MD POINT OF CARE TEST ORDERABLES Final Result [facility] [address] * (ABNORMAL) POC Potassium (10/26/2024 5:14 AM EDT) POC Potassium 2.8(LL) 3.5 - 5.3 mmol/L 10/26/2024 5:31 AM EDT [facility] Blood, Arterial 10/26/2024 5 :14 AM EDT 10/26/2024 5:31 AM EDT Semaj Mcnair III, MD POINT OF CARE TEST ORDERABLES Final Result [facility] [address] [place] [address]. [address] * POC Sodium (10/26/2024 5:14 AM EDT) POC Sodium 138 136 - 146 mmol/L 10/26/2024 5:31 AM EDT [facility] Blood, Arterial 10/26/2024 5 :14 AM EDT 10/26/2024 5:31 AM EDT Semaj Mcnair III, MD POINT OF CARE TEST ORDERABLES Final Result [facility] [address] [place] [address]. [address] * POC TCO2 (10/26/2024 5:14 AM EDT) POC TCO2, Arterial 23 23 - 27 mmol/L 10/26/2024 5:31 AM EDT [facility] Blood, Arterial 10/26/2024 5 :14 AM EDT 10/26/2024 5:31 AM EDT Semaj Mcnair III, MD POINT OF CARE TEST ORDERABLES Final Result [facility] [address] [place] [address]. [address] * (ABNORMAL) POC O2 SAT (10/26/2024 5:14 AM EDT) POC O2 Saturation, Arterial 99(H) 95 - 98 % 10/26/2024 5:31 AM EDT [facility] Blood, Arterial 10/26/2024 5 :14 AM EDT 10/26/2024 5:31 AM EDT us Semaj Mcnair III, MD POINT OF CARE TEST ORDERABLES Final Result Performing Organization Address City/[facility]/ZIP Co de Phone Number [facility] [address] [facility]. [address] * (ABNORMAL) POC Base Excess (10/26/2024 5:14 AM EDT) POC Base Excess, Arterial -5(L) -2 - 3 mmol/L 10/26/2024 5:31 AM EDT [facility] Blood, Arterial 10/26/2024 5 :14 AM EDT 10/26/2024 5:31 AM EDT us Semaj Mcnair III, MD POINT OF CARE TEST ORDERABLES Final Result Performing Organization Address [facility] Co de Phone Number [facility] [address] [facility]. [address] * POC HCO3 (10/26/2024 5:14 AM EDT) POC HCO3, Arterial 22 22 - 26 mmol/L 10/26/2024 5:31 AM EDT [facility] Blood, Arterial 10/26/2024 5 :14 AM EDT 10/26/2024 5:31 AM EDT us Semaj Mcnair III, MD POINT OF CARE TEST ORDERABLES Final Result Performing Organization Address City/[facility]/ZIP Co de Phone Number [facility] [address] [facility]. [address] * (ABNORMAL) POC PO2 (10/26/2024 5:14 AM EDT) POC pO2, Arterial 133(H) 80 - 100 mm Hg 10/26/2024 5:31 AM EDT [facility] Blood, Arterial 10/26/2024 5 :14 AM EDT 10/26/2024 5:31 AM EDT us Semaj Mcnair III, MD POINT OF CARE TEST ORDERABLES Final Result [facility] [address] * POC PCO2 (10/26/2024 5:14 AM EDT) POC pCO2, Arterial 45 35 - 45 mm Hg 10/26/2024 5:31 AM EDT [facility] Blood, Arterial 10/26/2024 5 :14 AM EDT 10/26/2024 5:31 AM EDT us Semaj Mcnair III, MD POINT OF CARE TEST ORDERABLES Final Result Performing Organization Address [facility] Co de Phone Number [facility] [address] [facility]. [address] * (ABNORMAL) POC pH (10/26/2024 5:14 AM EDT) POC pH, Arterial 7.29(L) 7.35 - 7.45 10/26/2024 5:31 AM EDT [facility] Blood, Arterial 10/26/2024 5 :14 AM EDT 10/26/2024 5:31 AM EDT us Semaj Mcnair III, MD POINT OF CARE TEST ORDERABLES Final Result Performing Organization Address City/[facility] Co de Phone Number [facility] [address] [facility]. [address] * Transfuse Cryoprecipitate (10/26/2024 4:37 AM [...] TEST ORDERABLES Final Result Performing Organization Address City/[facility]/ZIP Co de Phone Number [facility] [address] [place] [address] * POC Sample Type (10/26/2024 4:24 AM EDT) Pathologist [facility] POC Sample Type Arterial 10/26/2024 5:09 AM EDT [facility] Blood, Arterial 10/26/2024 4 :24 AM EDT 10/26/2024 5:09 AM EDT Semaj Mcnair III, MD POINT OF CARE TEST ORDERABLES Final Result [facility] [address] [place] [address] * POC Anion Gap (10/26/2024 4:24 AM EDT) Pathologist [facility] POC Anion Gap, Arterial 14 3 - 16 mmol/L 10/26/2024 5:09 AM EDT [facility] Blood, Arterial 10/26/2024 4 :24 AM EDT 10/26/2024 5:09 AM EDT us Semaj Mcnair III, MD POINT OF CARE TEST ORDERABLES Final Result Performing Organization Address City/[facility] Co de Phone Number [facility] [address] [place] [address]. [address] * POC Chloride (10/26/2024 4:24 AM EDT) POC Chloride 103 98 - 110 mmol/L 10/26/2024 5:09 AM EDT [facility] Blood, Arterial 10/26/2024 4 :24 AM EDT 10/26/2024 5:09 AM EDT us Semaj Mcnair III, MD POINT OF CARE TEST ORDERABLES Final Result Performing Organization Address [facility] Co de Phone Number [facility] [address] [facility]. [address] * (ABNORMAL) POC Hemoglobin (10/26/2024 4:24 AM EDT) POC Hemoglobin 10.3(L) 14.0 - 18.0 g/dL 10/26/2024 5:09 AM EDT [facility] Blood, Arterial 10/26/2024 4 :24 AM EDT 10/26/2024 5:09 AM EDT Semaj Mcnair III, MD POINT OF CARE TEST ORDERABLES Final Result Performing Organization Address City/[facility] Co de Phone Number [facility] [address] [place] [address]. [address] * (ABNORMAL) POC hematocrit (10/26/2024 4:24 AM EDT) POC Hematocrit 30.0(L) 40 - 52 % 10/26/2024 5:09 AM EDT [facility] Blood, Arterial 10/26/2024 4 :24 AM EDT 10/26/2024 5:09 AM EDT us Semaj Mcnair III, MD POINT OF CARE TEST ORDERABLES Final Result [facility] [address] [place] [address]. [address] * (ABNORMAL) POC Lactate (10/26/2024 4:24 AM EDT) POC Lactate 2.43(H) 0.50 - 2.20 mmol/L 10/26/2024 5:09 AM EDT [facility] Blood, Arterial 10/26/2024 4 :24 AM EDT 10/26/2024 5:09 AM EDT us Semaj Mcnair III, MD POINT OF CARE TEST ORDERABLES Final Result Performing Organization Address City/[facility]/ZIP Co de Phone Number [facility] [address] [facility]. [address] * (ABNORMAL) POC Glucose (10/26/2024 4:24 AM EDT) POC Glucose, Arterial 185(H) 70 - 100 mg/dL 10/26/2024 5:09 AM EDT [facility] Blood, Arterial 10/26/2024 4 :24 AM EDT 10/26/2024 5:09 AM EDT us Semaj Mcnair III, MD POINT OF CARE TEST ORDERABLES Final Result [facility] [address] [facility]. [address] * POC Ionized Calcium (10/26/2024 4:24 AM EDT) POC Ionized Calcium 5.20 4.50 - 5.30 mg/dL 10/26/2024 5:09 AM EDT [facility] Blood, Arterial 10/26/2024 4 :24 AM EDT 10/26/2024 5:09 AM EDT us Semaj Mcnair III, MD POINT OF CARE TEST ORDERABLES Final Result Performing Organization Address City/[facility]/ZIP Co de Phone Number [facility] [address] [facility]. [address] * (ABNORMAL) POC Potassium (10/26/2024 4:24 AM EDT) POC Potassium 2.8(LL) 3.5 - 5.3 mmol/L 10/26/2024 5:09 AM EDT [facility] Blood, Arterial 10/26/2024 4 :24 AM EDT 10/26/2024 5:09 AM EDT us Semaj Mcnair III, MD POINT OF CARE TEST ORDERABLES Final Result Performing Organization Address [facility] Co de Phone Number [facility] [address] [facility]. [address] * POC Sodium (10/26/2024 4:24 AM EDT) POC Sodium 139 136 - 146 mmol/L 10/26/2024 5:09 AM EDT [facility] Blood, Arterial 10/26/2024 4 :24 AM EDT 10/26/2024 5:09 AM EDT us Semaj Mcnair III, MD POINT OF CARE TEST ORDERABLES Final Result Performing Organization Address [facility] Co de Phone Number [facility] [address] [place] [address]. [address] * POC TCO2 (10/26/2024 4:24 AM EDT) POC TCO2, Arterial 23 23 - 27 mmol/L 10/26/2024 5:09 AM EDT [facility] Blood, Arterial 10/26/2024 4 :24 AM EDT 10/26/2024 5:09 AM EDT us Semaj Mcnair III, MD POINT OF CARE TEST ORDERABLES Final Result [facility] [address]. [address] * POC O2 SAT (10/26/2024 4:24 AM EDT) POC O2 Saturation, Arterial 96 95 - 98 % 10/26/2024 5:09 AM EDT [facility] Blood, Arterial 10/26/2024 4 :24 AM EDT 10/26/2024 5:09 AM EDT us Semaj Mcnair III, MD POINT OF CARE TEST ORDERABLES Final Result Performing Organization Address City/[facility] Co de Phone Number [facility] [address] * (ABNORMAL) POC Base Excess (10/26/2024 4:24 AM EDT) POC Base Excess, Arterial -5(L) -2 - 3 mmol/L 10/26/2024 5:09 AM EDT [facility] Blood, Arterial 10/26/2024 4 :24 AM EDT 10/26/2024 5:09 AM EDT us Semaj Mcnair III, MD POINT OF CARE TEST ORDERABLES Final Result [facility] [address] * POC HCO3 (10/26/2024 4:24 AM EDT) POC HCO3, Arterial 22 22 - 26 mmol/L 10/26/2024 5:09 AM EDT [facility] Blood, Arterial 10/26/2024 4 :24 AM EDT 10/26/2024 5:09 AM EDT us Semaj Mcnair III, MD POINT OF CARE TEST ORDERABLES Final Result Performing Organization Address City/[facility]/ZIP Co de Phone Number [facility] [address] * POC PO2 (10/26/2024 4:24 AM EDT) POC pO2, Arterial 93 80 - 100 mm Hg 10/26/2024 5:09 AM EDT [facility] Blood, Arterial 10/26/2024 4 :24 AM EDT 10/26/2024 5:09 AM EDT us Semaj Mcnair III, MD POINT OF CARE TEST ORDERABLES Final Result Performing Organization Address [facility] Co de Phone Number [address] * POC PCO2 (10/26/2024 4:24 AM EDT) POC pCO2, Arterial 44 35 - 45 mm Hg 10/26/2024 5:09 AM EDT [facility] Blood, Arterial 10/26/2024 4 :24 AM EDT 10/26/2024 5:09 AM EDT us Semaj Mcnair III, MD POINT OF CARE TEST ORDERABLES Final Result Performing Organization Address City/[facility] Co de Phone Number [address] [facility]. [address] * (ABNORMAL) POC pH (10/26/2024 4:24 AM EDT) POC pH, Arterial 7.30(L) 7.35 - 7.45 10/26/2024 5:09 AM EDT [facility] Blood, Arterial 10/26/2024 4 :24 AM EDT 10/26/2024 5:09 AM EDT us Semaj Mcnair III, MD POINT OF CARE TEST ORDERABLES Final Result Performing Organization Address [facility] Co de Phone Number [facility] [address] * Transfuse Platelets (10/26/2024 4:14 AM EDT) Ben Blake MD NURSING TREATMENT ORDERABLES - BLOOD ADMIN Final Result * Transfuse Fresh Frozen Plasma (10/26/2024 3:47 AM EDT) Ben Blake MD NURSING TREATMENT ORDERABLES - BLOOD ADMIN Final Result * (ABNORMAL) POC INR (10/26/2024 3:34 AM EDT) Prothrombin Time INR, POC 2.8(H) 0.8 - 1.4 10/27/2024 6:51 AM EDT [facility] Comment: Test results may vary using [...] ORDERABLES Final Result Performing Organization Address [facility] Co de Phone Number [facility] [address] * POC Sample Type (10/26/2024 3:31 AM EDT) POC Sample Type Arterial 10/26/2024 4:11 AM EDT [facility] Blood, Arterial 10/26/2024 3 :31 AM EDT 10/26/2024 4:11 AM EDT Semaj Mcnair III, MD POINT OF CARE TEST ORDERABLES Final Result Performing Organization Address City/[facility]/ZIP Co de Phone Number [facility] [address] * POC Anion Gap (10/26/2024 3:31 AM EDT) POC Anion Gap, Arterial 15 3 - 16 mmol/L 10/26/2024 4:11 AM EDT [facility] Blood, Arterial 10/26/2024 3 :31 AM EDT 10/26/2024 4:11 AM EDT us Semaj Mcnair III, MD POINT OF CARE TEST ORDERABLES Final Result [facility] [address] * POC Chloride (10/26/2024 3:31 AM EDT) Pathologist [facility] POC Chloride 105 98 - 110 mmol/L 10/26/2024 4:11 AM EDT [facility] Blood, Arterial 10/26/2024 3 :31 AM EDT 10/26/2024 4:11 AM EDT us Semaj Mcnair III, MD POINT OF CARE TEST ORDERABLES Final Result Performing Organization Address City/[facility]/ZIP Co de Phone Number [facility] [address] * (ABNORMAL) POC Hemoglobin (10/26/2024 3:31 AM EDT) Pathologist [facility] POC Hemoglobin 9.7(L) 14.0 - 18.0 g/dL 10/26/2024 4:11 AM EDT [facility] Blood, Arterial 10/26/2024 3 :31 AM EDT 10/26/2024 4:11 AM EDT us Semaj Mcnair III, MD POINT OF CARE TEST ORDERABLES Final Result [facility] [address] * (ABNORMAL) POC hematocrit (10/26/2024 3:31 AM EDT) POC Hematocrit 29.0(L) 40 - 52 % 10/26/2024 4:11 AM EDT [facility] Blood, Arterial 10/26/2024 3 :31 AM EDT 10/26/2024 4:11 AM EDT us Semaj Mcnair III, MD POINT OF CARE TEST ORDERABLES Final Result [facility] [address] [facility]. [address] * (ABNORMAL) POC Lactate (10/26/2024 3:31 AM EDT) POC Lactate 3.54(H) 0.50 - 2.20 mmol/L 10/26/2024 4:11 AM EDT [facility] Blood, Arterial 10/26/2024 3 :31 AM EDT 10/26/2024 4:11 AM EDT us Semaj Mcnair III, MD POINT OF CARE TEST ORDERABLES Final Result Performing Organization Address [facility] Co de Phone Number [facility] [address] [facility] * (ABNORMAL) POC Glucose (10/26/2024 3:31 AM EDT) POC Glucose, Arterial 153(H) 70 - 100 mg/dL 10/26/2024 4:11 AM EDT [facility] Blood, Arterial 10/26/2024 3 :31 AM EDT 10/26/2024 4:11 AM EDT us Semaj Mcnair III, MD POINT OF CARE TEST ORDERABLES Final Result Performing Organization Address City/[facility]/ZIP Co de Phone Number [facility] [address] [facility] * POC Ionized Calcium (10/26/2024 3:31 AM EDT) POC Ionized Calcium 5.10 4.50 - 5.30 mg/dL 10/26/2024 4:11 AM EDT [facility] Blood, Arterial 10/26/2024 3 :31 AM EDT 10/26/2024 4:11 AM EDT us Semaj Mcnair III, MD POINT OF CARE TEST ORDERABLES Final Result Performing Organization Address City/[facility]/ZIP Co de Phone Number [facility] [address] [place] [address]. [address] * (ABNORMAL) POC Potassium (10/26/2024 3:31 AM EDT) [facility] POC Potassium 2.6(LL) 3.5 - 5.3 mmol/L 10/26/2024 4:11 AM EDT [facility] Blood, Arterial 10/26/2024 3 :31 AM EDT 10/26/2024 4:11 AM EDT us Semaj Mcnair III, MD POINT OF CARE TEST ORDERABLES Final Result Performing Organization Address [facility] Co de Phone Number [facility] [address] [place] [address]. [address] * POC Sodium (10/26/2024 3:31 AM EDT) Pathologist [facility] POC Sodium 138 136 - 146 mmol/L 10/26/2024 4:11 AM EDT [facility] Blood, Arterial 10/26/2024 3 :31 AM EDT 10/26/2024 4:11 AM EDT us Semaj Mcnair III, MD POINT OF CARE TEST ORDERABLES Final Result Performing Organization Address City/[facility] Co de Phone Number [facility] [address] [facility]. [address] * (ABNORMAL) POC TCO2 (10/26/2024 3:31 AM EDT) POC TCO2, Arterial 19(L) 23 - 27 mmol/L 10/26/2024 4:11 AM EDT [facility] Blood, Arterial 10/26/2024 3 :31 AM EDT 10/26/2024 4:11 AM EDT us Semaj Mcnair III, MD POINT OF CARE TEST ORDERABLES Final Result [facility] [address] [place] [address]. [address] * POC O2 SAT (10/26/2024 3:31 AM EDT) Pathologist [facility] POC O2 Saturation, Arterial 97 95 - 98 % 10/26/2024 4:11 AM EDT [facility] Blood, Arterial 10/26/2024 3 :31 AM EDT 10/26/2024 4:11 AM EDT us Semaj Mcnair III, MD POINT OF CARE TEST ORDERABLES Final Result Performing Organization Address City/[facility] Co de Phone Number [facility] [address] [place] [address]. [address] * (ABNORMAL) POC Base Excess (10/26/2024 3:31 AM EDT) Pathologist [facility] POC Base Excess, Arterial -9(L) -2 - 3 mmol/L 10/26/2024 4:11 AM EDT [facility] Blood, Arterial 10/26/2024 3 :31 AM EDT 10/26/2024 4:11 AM EDT us Semaj Mcnair III, MD POINT OF CARE TEST ORDERABLES Final Result Performing Organization Address City/[facility]/ZIP Co de Phone Number [facility] [address] [facility]. [address] * (ABNORMAL) POC HCO3 (10/26/2024 3:31 AM EDT) POC HCO3, Arterial 18(L) 22 - 26 mmol/L 10/26/2024 4:11 AM EDT [facility] Blood, Arterial 10/26/2024 3 :31 AM EDT 10/26/2024 4:11 AM EDT us Semaj Mcnair III, MD POINT OF CARE TEST ORDERABLES Final Result Performing Organization Address City/[facility]/ZIP Co de Phone Number [facility] [address] [place] [address]. [address] * (ABNORMAL) POC PO2 (10/26/2024 3:31 AM EDT) POC pO2, Arterial 104(H) 80 - 100 mm Hg 10/26/2024 4:11 AM EDT [facility] Blood, Arterial 10/26/2024 3 :31 AM EDT 10/26/2024 4:11 AM EDT us Semaj Mcnair III, MD POINT OF CARE TEST ORDERABLES Final Result Performing Organization Address [facility] Co de Phone Number [facility] [address] [place] [address]. [address] * POC PCO2 (10/26/2024 3:31 AM EDT) POC pCO2, Arterial 42 35 - 45 mm Hg 10/26/2024 4:11 AM EDT [facility] Blood, Arterial 10/26/2024 3 :31 AM EDT 10/26/2024 4:11 AM EDT us Semaj Mcnair III, MD POINT OF CARE TEST ORDERABLES Final Result Performing Organization Address City/[facility] Co de Phone Number [facility] [address] [place] [address]. [address] * (ABNORMAL) POC pH (10/26/2024 3:31 AM EDT) POC pH, Arterial 7.24(L) 7.35 - 7.45 10/26/2024 4:11 AM EDT [facility] Blood, Arterial 10/26/2024 3 :31 AM EDT 10/26/2024 4:11 AM EDT Semaj Mcnair III, MD POINT OF CARE TEST ORDERABLES Final Result Performing Organization Address [facility]/ZIP Co de Phone Number [facility] [address] * (ABNORMAL) TEG-Global With Lysis (Baseline TEG with LY30, Will NOT Show Heparin Effect) (53:31 AM EDT) Citrated Kaolin Reaction Time (TEGLYSIS) 6.8 4.6 - 9.1 minutes 10/26/2024 5:02 AM EDT [facility] Citrated Rapid Teg Maximum Amplitude (TEGLYSIS) <40.0(L) 52.0 - 70.0 mm 10/26/2024 5:02 AM EDT [facility] Citrated Functional Fibrinogen Maximum Amplitude (TEGLYSIS) <4.0(L) 15.0 - 32.0 mm 10/26/2024 5:02 AM EDT [facility] Citrated Kaolin Percent Lysis (TEGLYSIS) 1.4 0.0 - 2.6 % 10/26/2024 5:02 AM EDT [facility] Whole Blood (Citrate) 10/26/2024 3:31 AM EDT 10/26/2024 3:40 AM EDT us Eber Quinones MD LAB BLOOD ORDERABLES Fin al Result [facility] [address] [facility]. [address] * (ABNORMAL) CBC (10/26/2024 3:31 AM EDT) WBC 9.5 3.8 - 10.8 10E3/uL 10/26/2024 3:48 AM EDT [facility] RBC 3.68(L) 4.20 - 5.80 10E6/uL 10/26/2024 3:48 AM EDT [facility] Hemoglobin 11.5(L) 13.2 - 17.1 g/dL 10/26/2024 3:48 AM EDT [facility] Hematocrit 33.0(L) 38.5 - 50.0 % 10/26/2024 3:48 AM EDT [facility] MCV 89.6 80.0 - 100.0 fL 10/26/2024 3:48 AM EDT [facility] MCH 31.1 27.0 - 33.0 pg 10/26/2024 3:48 AM EDT [facility] MCHC 34.8 32.0 - 36.0 g/dL 10/26/2024 3:48 AM EDT [facility] RDW 19.3(H) 11.0 - 15.0 % 10/26/2024 3:48 AM EDT [facility] Platelets 67(L) 140 - 400 10E3/uL 10/26/2024 3:48 AM EDT [facility] MPV 7.9 7.5 - 11.5 fL 10/26/2024 3:48 AM EDT [facility] Whole Blood 10/26/2024 3:31 AM EDT 10/26/2024 3:40 AM EDT Eber Quinones MD LAB BLOOD ORDERABLES Fin al Result [facility] [address] * (ABNORMAL) Protime-INR (10/26/2024 3:31 AM EDT) Protime 27.0(H) 12.1 - 15.1 seconds 10/26/2024 3:51 AM EDT [facility] INR 2.4(H) 0.9 - 1.1 10/26/2024 3:51 AM EDT [facility] Comment: RECOMMENDED THERAPEUTIC RANGES USING INR : Stable oral anticoagulant therapy: 2.0 - 3.0 Mechanical prosthetic heart valve: 2.5 - 3.5 Recurrent acute myocardial infarction: 2.5 - 3.5 Plasma 10/26/2024 3:31 AM EDT 10/26/2024 3:40 AM EDT Result [facility] Eber Quinones MD LAB BLOOD ORDERABLES Fin al Result Performing Organization Address City/[facility] Co de Phone Number [facility] [address] * (ABNORMAL) Fibrinogen (10/26/2024 3:31 AM EDT) [facility] Signature Fibrinogen 104(L) 218 - 406 mg/dL 10/26/2024 3:56 AM EDT [facility] Plasma 10/26/2024 3:31 AM EDT 10/26/2024 3:40 AM EDT Result [facility] Eber Quinones MD LAB BLOOD ORDERABLES Fin al Result Performing Organization Address [facility] Co de Phone Number [facility] [address] * Transfuse Fresh Frozen Plasma (10/26/2024 3:16 AM EDT) Result [facility] Ben Blake MD NURSING TREATMENT ORDERABLES - BLOOD ADMIN Final Result * Transfuse Fresh Frozen Plasma (10/26/2024 3:15 AM EDT) Result [facility] Ben Blake MD NURSING TREATMENT ORDERABLES - BLOOD ADMIN Final Result * Transfuse RBC (10/26/2024 3:14 AM EDT) Result [facility] Ben Blake MD NURSING TREATMENT ORDERABLES - BLOOD ADMIN Final Result * Transfuse RBC (10/26/2024 3:14 AM EDT) Result [facility] Ben Blake MD NURSING TREATMENT ORDERABLES - BLOOD ADMIN Final Result * Transfuse RBC (10/26/2024 2:40 AM EDT) Result [facility] Ben Blake MD NURSING TREATMENT ORDERABLES - BLOOD ADMIN Final Result * Transfuse Fresh Frozen Plasma (10/26/2024 2:39 AM EDT) Result [facility] us Ben Blake MD NURSING TREATMENT ORDERABLES - BLOOD ADMIN Final Result * Transfuse Fresh Frozen Plasma (10/26/2024 2:24 AM EDT) Result [facility] Ben Blake MD NURSING TREATMENT ORDERABLES - BLOOD ADMIN Final Result * Transfuse Fresh Frozen Plasma (10/26/2024 2:03 AM EDT) us Ben Blake MD NURSING TREATMENT ORDERABLES - BLOOD ADMIN Final Result * Transfuse RBC (10/26/2024 2:01 AM EDT) Result [facility] us Ben Blake MD NURSING TREATMENT ORDERABLES - BLOOD ADMIN Final Result * Transfuse RBC (10/26/2024 1:45 AM EDT) Result [facility] Ben Blake MD NURSING TREATMENT ORDERABLES - BLOOD ADMIN Final Result * Transfuse RBC (10/26/2024 1:45 AM EDT) Result Tiburcio Blake MD NURSING TREATMENT ORDERABLES - BLOOD ADMIN Final Result * (ABNORMAL) POC INR (10/26/2024 1:43 AM EDT) [facility] Prothrombin Time INR, POC 1.9(H) 0.8 - [...] AM EDT 10/27/2024 6:51 AM EDT Result [facility] Semaj Mcnair III, MD POINT OF CARE TEST ORDERABLES Final Result [facility] [address] [place] [address], [facility] * Transfuse Fresh Frozen Plasma (10/26/2024 1:41 AM EDT) Result [facility] us Ben Blake MD NURSING TREATMENT ORDERABLES - BLOOD ADMIN Final Result * Transfuse RBC (10/26/2024 1:40 AM EDT) Result [facility] Ben Blake MD NURSING TREATMENT ORDERABLES - BLOOD ADMIN Final Result * POC Sample Type (10/26/2024 1:40 AM EDT) POC Sample Type Arterial 10/26/2024 2:32 AM EDT [facility] Blood, Arterial 10/26/2024 1 :40 AM EDT 10/26/2024 2:32 AM EDT Semaj Mcnair III, MD POINT OF CARE TEST ORDERABLES Final Result [facility] [address] [facility] * POC Anion Gap (10/26/2024 1:40 AM EDT) Pathologist [facility] POC Anion Gap, Arterial 13 3 - 16 mmol/L 10/26/2024 2:32 AM EDT [facility] Blood, Arterial 10/26/2024 1 :40 AM EDT 10/26/2024 2:32 AM EDT Semaj Mcnair III, MD POINT OF CARE TEST ORDERABLES Final Result Performing Organization Address City/[facility]/ZIP Co de Phone Number [facility] [address] [facility]. [address] * POC Chloride (10/26/2024 1:40 AM EDT) Pathologist [facility] POC Chloride 104 98 - 110 mmol/L 10/26/2024 2:32 AM EDT [facility] Blood, Arterial 10/26/2024 1 :40 AM EDT 10/26/2024 2:32 AM EDT Semaj Mcnair III, MD POINT OF CARE TEST ORDERABLES Final Result Performing Organization Address City/[facility]/ZIP Co de Phone Number [facility] [address] [facility]. [address] * (ABNORMAL) POC Hemoglobin (10/26/2024 1:40 AM EDT) POC Hemoglobin 7.4(L) 14.0 - 18.0 g/dL 10/26/2024 2:32 AM EDT [facility] Blood, Arterial 10/26/2024 1:40 AM EDT 10/26/2024 2:32 AM EDT us Semaj Mcnair III, MD POINT OF CARE TEST ORDERABLES Final Result [facility] [address] [facility]. [address] * (ABNORMAL) POC hematocrit (10/26/2024 1:40 AM EDT) [facility] POC Hematocrit 22.0(L) 40 - 52 % 10/26/2024 2:32 AM EDT [facility] Blood, Arterial 10/26/2024 1 :40 AM EDT 10/26/2024 2:32 AM EDT us Semaj Mcnair III, MD POINT OF CARE TEST ORDERABLES Final Result Performing Organization Address [facility] Co de Phone Number [facility] [address] [facility]. [address] * (ABNORMAL) POC Lactate (10/26/2024 1:40 AM EDT) Pathologist [facility] POC Lactate 2.30(H) 0.50 - 2.20 mmol/L 10/26/2024 2:32 AM EDT [facility] Blood, Arterial 10/26/2024 1 :40 AM EDT 10/26/2024 2:32 AM EDT us Semaj Mcnair III, MD POINT OF CARE TEST ORDERABLES Final Result Performing Organization Address City/[facility] Co de Phone Number [facility] [address] [facility]. [address] * (ABNORMAL) POC Glucose (10/26/2024 1:40 AM EDT) POC Glucose, Arterial 116(H) 70 - 100 mg/dL 10/26/2024 2:32 AM EDT [facility] Blood, Arterial 10/26/2024 1 :40 AM EDT 10/26/2024 2:32 AM EDT us Semaj Mcnair III, MD POINT OF CARE TEST ORDERABLES Final Result Performing Organization Address City/[facility] Co de Phone Number [facility] [address] [place] [address]. [address] * (ABNORMAL) POC Ionized Calcium (10/26/2024 1:40 AM EDT) Pathologist [facility] POC Ionized Calcium 4.10(L) 4.50 - 5.30 mg/dL 10/26/2024 2:32 AM EDT [facility] Blood, Arterial 10/26/2024 1 :40 AM EDT 10/26/2024 2:32 AM EDT us Semaj Mcnair III, MD POINT OF CARE TEST ORDERABLES Final Result Performing Organization Address [facility] [[email or web address]] de Phone Number [facility] [address] [place] [address]. [address] * (ABNORMAL) POC Potassium (10/26/2024 1:40 AM EDT) Pathologist [facility] POC Potassium 2.6(LL) 3.5 - 5.3 mmol/L 10/26/2024 2:32 AM EDT [facility] Blood, Arterial 10/26/2024 1 :40 AM EDT 10/26/2024 2:32 AM EDT us Semaj Mcnair III, MD POINT OF CARE TEST ORDERABLES Final Result Performing Organization Address [facility] Co de Phone Number [facility] [address] [place] [address]. [address] * (ABNORMAL) POC Sodium (10/26/2024 1:40 AM EDT) POC Sodium 135(L) 136 - 146 mmol/L 10/26/2024 2:32 AM EDT [facility] Blood, Arterial 10/26/2024 1 :40 AM EDT 10/26/2024 2:32 AM EDT us Semaj Mcnair III, MD POINT OF CARE TEST ORDERABLES Final Result Performing Organization Address City/[facility]/ZIP Co de Phone Number [facility] [address] [place] [address]. [address] * (ABNORMAL) POC TCO2 (10/26/2024 1:40 AM EDT) POC TCO2, Arterial 19(L) 23 - 27 mmol/L 10/26/2024 2:32 AM EDT [facility] Blood, Arterial 10/26/2024 1 :40 AM EDT 10/26/2024 2:32 AM EDT us Semaj Mcnair III, MD POINT OF CARE TEST ORDERABLES Final Result Performing Organization Address [facility] Co de Phone Number [facility] [address] [place] [address]. [address] * (ABNORMAL) POC O2 SAT (10/26/2024 1:40 AM EDT) POC O2 Saturation, Arterial 99(H) 95 - 98 % 10/26/2024 2:32 AM EDT [facility] Blood, Arterial 10/26/2024 1 :40 AM EDT 10/26/2024 2:32 AM EDT us Semaj Mcnair III, MD POINT OF CARE TEST ORDERABLES Final Result Performing Organization Address City/[facility] Co de Phone Number [facility] [address] [facility]. [address] * (ABNORMAL) POC Base Excess (10/26/2024 1:40 AM EDT) POC Base Excess, Arterial -7(L) -2 - 3 mmol/L 10/26/2024 2:32 AM EDT [facility] Blood, Arterial 10/26/2024 1 :40 AM EDT 10/26/2024 2:32 AM EDT us Semaj Mcnair III, MD POINT OF CARE TEST ORDERABLES Final Result Performing Organization Address City/[facility]/ZIP Co de Phone Number [facility] [address] [place] [address]. [address] * (ABNORMAL) POC HCO3 (10/26/2024 1:40 AM EDT) POC HCO3, Arterial 18(L) 22 - 26 mmol/L 10/26/2024 2:32 AM EDT [facility] Blood, Arterial 10/26/2024 1 :40 AM EDT 10/26/2024 2:32 AM EDT us Semaj Mcnair III, MD POINT OF CARE TEST ORDERABLES Final Result Performing Organization Address [facility] Co de Phone Number [facility] [address] [place] [address]. [address] * (ABNORMAL) POC PO2 (10/26/2024 1:40 AM EDT) POC pO2, Arterial 145(H) 80 - 100 mm Hg 10/26/2024 2:32 AM EDT [facility] Blood, Arterial 10/26/2024 1 :40 AM EDT 10/26/2024 2:32 AM EDT us Semaj Mcnair III, MD POINT OF CARE TEST ORDERABLES Final Result Performing Organization Address City/[facility] Co de Phone Number [facility] [address] [place] [address]. [address] * (ABNORMAL) POC PCO2 (10/26/2024 1:40 AM EDT) POC pCO2, Arterial 33(L) 35 - 45 mm Hg 10/26/2024 2:32 AM EDT [facility] Blood, Arterial 10/26/2024 1 :40 AM EDT 10/26/2024 2:32 AM EDT us Semaj Mcnair III, MD POINT OF CARE TEST ORDERABLES Final Result Performing Organization Address City/[facility] Co de Phone Number [facility] [address] [facility]. [address] * POC pH (10/26/2024 1:40 AM EDT) POC pH, Arterial 7.35 7.35 - 7.45 10/26/2024 2:32 AM EDT [facility] Blood, Arterial 10/26/2024 1 :40 AM EDT 10/26/2024 2:32 AM EDT us Semaj Mcnair III, MD POINT OF CARE TEST ORDERABLES Final Result Performing Organization Address [facility] Co de Phone Number [facility] [address] [facility]. [address] * Transfuse Fresh Frozen Plasma (10/26/2024 1:20 AM EDT) us Ben Blake MD NURSING TREATMENT ORDERABLES - BLOOD ADMIN Final Result * Transfuse RBC (10/26/2024 12:56 AM EDT) us Ben Blake MD NURSING TREATMENT ORDERABLES - BLOOD ADMIN Final Result * (ABNORMAL) POC INR (10/26/2024 12:41 AM EDT) Prothrombin Time INR, POC 2.0(H) 0.8 - 1.4 10/27/2024 6:51 AM EDT [facility] Comment: Test results may vary using [...] TEST ORDERABLES Final Result Performing Organization Address City/[facility] Co de Phone Number [facility] [address] [facility]. [address] * POC Sample Type (10/26/2024 12:39 AM EDT) POC Sample Type Arterial 10/26/2024 1:38 AM EDT [facility] Blood, Arterial 10/26/2024 1 2:39 AM EDT 10/26/2024 1:38 AM EDT Semaj Mcnair III, MD POINT OF CARE TEST ORDERABLES Final Result Performing Organization Address [facility] Co de Phone Number [facility] [address] [facility]. [address] * POC Anion Gap (10/26/2024 12:39 AM EDT) POC Anion Gap, Arterial 13 3 - 16 mmol/L 10/26/2024 1:38 AM EDT [facility] Blood, Arterial 10/26/2024 1 2:39 AM EDT 10/26/2024 1:38 AM EDT Semaj Mcnair III, MD POINT OF CARE TEST ORDERABLES Final Result Performing Organization Address City/[facility] Co de Phone Number [facility] [address] [facility]. [address] * POC Chloride (10/26/2024 12:39 AM EDT) POC Chloride 103 98 - 110 mmol/L 10/26/2024 1:38 AM EDT [facility] Blood, Arterial 10/26/2024 1 2:39 AM EDT 10/26/2024 1:38 AM EDT us Semaj Mcnair III, MD POINT OF CARE TEST ORDERABLES Final Result Performing Organization Address [facility] Co de Phone Number [facility] [address] [facility]. [address] * (ABNORMAL) POC Hemoglobin (10/26/2024 12:39 AM EDT) POC Hemoglobin 7.9(L) 14.0 - 18.0 g/dL 10/26/2024 1:38 AM EDT [facility] Blood, Arterial 10/26/2024 1 2:39 AM EDT 10/26/2024 1:38 AM EDT us Semaj Mcnair III, MD POINT OF CARE TEST ORDERABLES Final Result Performing Organization Address [facility] Co de Phone Number [facility] [address] [facility]. [address] * (ABNORMAL) POC hematocrit (10/26/2024 12:39 AM EDT) POC Hematocrit 23.0(L) 40 - 52 % 10/26/2024 1:38 AM EDT [facility] Blood, Arterial 10/26/2024 1 2:39 AM EDT 10/26/2024 1:38 AM EDT us Semaj Mcnair III, MD POINT OF CARE TEST ORDERABLES Final Result Performing Organization Address City/[facility] Co de Phone Number [facility] [address] [facility]. [address] * POC Lactate (10/26/2024 12:39 AM EDT) POC Lactate 1.39 0.50 - 2.20 mmol/L 10/26/2024 1:38 AM EDT [facility] Blood, Arterial 10/26/2024 1 2:39 AM EDT 10/26/2024 1:38 AM EDT Semaj Mcnair III, MD POINT OF CARE TEST ORDERABLES Final Result Performing Organization Address [facility] Co de Phone Number [facility] [address]. [address] * (ABNORMAL) POC Glucose (10/26/2024 12:39 AM EDT) POC Glucose, Arterial 116(H) 70 - 100 mg/dL 10/26/2024 1:38 AM EDT [facility] Blood, Arterial 10/26/2024 1 2:39 AM EDT 10/26/2024 1:38 AM EDT Semaj Mcnair III, MD POINT OF CARE TEST ORDERABLES Final Result Performing Organization Address [facility] Co de Phone Number [facility] [address] [place], [place] [address]ue [facility]. [address] * (ABNORMAL) POC Ionized Calcium (10/26/2024 12:39 AM EDT) POC Ionized Calcium 4.30(L) 4.50 - 5.30 mg/dL 10/26/2024 1:38 AM EDT [facility] Blood, Arterial 10/26/2024 1 2:39 AM EDT 10/26/2024 1:38 AM EDT Semaj Mcnair III, MD POINT OF CARE TEST ORDERABLES Final Result Performing Organization Address [facility] Co de Phone Number [facility] [address]. [address] * (ABNORMAL) POC Potassium (10/26/2024 12:39 AM EDT) POC Potassium 2.4(LL) 3.5 - 5.3 mmol/L 10/26/2024 1:38 AM EDT [facility] Blood, Arterial 10/26/2024 1 2:39 AM EDT 10/26/2024 1:38 AM EDT us Semaj Mcnair III, MD POINT OF CARE TEST ORDERABLES Final Result Performing Organization Address City/[facility] Co de Phone Number [facility] [address]. [address] * POC Sodium (10/26/2024 12:39 AM EDT) POC Sodium 136 136 - 146 mmol/L 10/26/2024 1:38 AM EDT [facility] Blood, Arterial 10/26/2024 1 2:39 AM EDT 10/26/2024 1:38 AM EDT us Semaj Mcnair III, MD POINT OF CARE TEST ORDERABLES Final Result Performing Organization Address [facility] Co de Phone Number [facility] [address] * (ABNORMAL) POC TCO2 (10/26/2024 12:39 AM EDT) POC TCO2, Arterial 21(L) 23 - 27 mmol/L 10/26/2024 1:38 AM EDT [facility] Blood, Arterial 10/26/2024 1 2:39 AM EDT 10/26/2024 1:38 AM EDT us Semaj Mcnair III, MD POINT OF CARE TEST ORDERABLES Final Result Performing Organization Address City/[facility] Co de Phone Number [facility] [address] * POC O2 SAT (10/26/2024 12:39 AM EDT) POC O2 Saturation, Arterial 98 95 - 98 % 10/26/2024 1:38 AM EDT [facility] Blood, Arterial 10/26/2024 1 2:39 AM EDT 10/26/2024 1:38 AM EDT Semaj Mcnair III, MD POINT OF CARE TEST ORDERABLES Final Result Performing Organization Address City/[facility] Co de Phone Number [facility] [address] * (ABNORMAL) POC Base Excess (10/26/2024 12:39 AM EDT) POC Base Excess, Arterial -7(L) -2 - 3 mmol/L 10/26/2024 1:38 AM EDT [facility] Blood, Arterial 10/26/2024 1 2:39 AM EDT 10/26/2024 1:38 AM EDT Semaj Mcnair III, MD POINT OF CARE TEST ORDERABLES Final Result Performing Organization Address [facility] Co de Phone Number [facility] [address] * (ABNORMAL) POC HCO3 (10/26/2024 12:39 AM EDT) POC HCO3, Arterial 20(L) 22 - 26 mmol/L 10/26/2024 1:38 AM EDT [facility] Blood, Arterial 10/26/2024 1 2:39 AM EDT 10/26/2024 1:38 AM EDT Semaj Mcnair III, MD POINT OF CARE TEST ORDERABLES Final Result Performing Organization Address [facility] Co de Phone Number [facility] [address] * (ABNORMAL) POC PO2 (10/26/2024 12:39 AM EDT) POC pO2, Arterial 117(H) 80 - 100 mm Hg 10/26/2024 1:38 AM EDT [facility] Blood, Arterial 10/26/2024 1 2:39 AM EDT 10/26/2024 1:38 AM EDT Semaj Mcnair III, MD POINT OF CARE TEST ORDERABLES Final Result Performing Organization Address [facility] Co de Phone Number [facility] [address] * (ABNORMAL) POC PCO2 (10/26/2024 12:39 AM EDT) POC pCO2, Arterial 46(H) 35 - 45 mm Hg 10/26/2024 1:38 AM EDT [facility] Blood, Arterial 10/26/2024 1 2:39 AM EDT 10/26/2024 1:38 AM EDT Semaj Mcnair III, MD POINT OF CARE TEST ORDERABLES Final Result Performing Organization Address [facility] Co de Phone Number [facility] [address] [facility] * (ABNORMAL) POC pH (10/26/2024 12:39 AM EDT) POC pH, Arterial 7.24(L) 7.35 - 7.45 10/26/2024 1:38 AM EDT [facility] Blood, Arterial 10/26/2024 1 2:39 AM EDT 10/26/2024 1:38 AM EDT Result [facility] Semaj Mcnair III, MD POINT OF CARE TEST ORDERABLES Final Result Performing Organization Address [facility] Co de Phone Number [facility] [address] [facility]. [address] * Transfuse Platelets (10/26/2024 12:37 AM EDT) Result [facility] Ben Blake MD NURSING TREATMENT ORDERABLES - BLOOD ADMIN Final Result * Transfuse RBC (10/26/2024 12:31 AM EDT) Result [facility] us Ben Blake MD NURSING TREATMENT ORDERABLES [...] SYSTEM LAB Culture Result No Growth After 3 Days [facility] Surgical Swab ABDOMEN / Unknown 12:03 AM EDT Comment:2.) Ascites Anaerobhic culture Fungus culture Routine culture plus stain Narrative [facility] - 10/28/2024 9:38 PM EDT 2.) Ascites Anaerobhic culture Fungus culture Routine culture plus stain 2.) Ascites Semaj Mcnair III, MD MICROBIOLOGY - [facility] ORDERABLES Final Result Performing Organization Address City/State/[facility] Co de Phone Number [facility] [address] * Surgical Pathology Exam (10/26/2024 12:00 AM EDT) 10/26/2024 10/27/2024 Narrative [facility] - 10/26/2024 12:00 AM EDT CASE: [id number] PATIENT: BLAIR GILBERT Clinical History: Liver - kidney transplant Pre-Operative Diagnosis: Alcoholic cirrhosis of liver Post-Operative Diagnosis: Alcoholic cirrhosis of liver Specimen(s) Submitted: A. [place] [facility] CPT Code(s): 25051 X 1; 74472 X 5 Additional Information: FINAL DIAGNOSIS: A. 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 - Negative for neoplasm. - Increased hepatocellular iron deposition (3+; Modified Scheuer). Gall bladder: -Intramucosal and submucosal vascular congestion and hemorrhage. - Negative for dysplasia or malignancy. Gross Description: Received in formalin, labeled Blair Gilbert and [place] liver , is a 2338-gram, hepatectomy specimen [...] discrete masses or other lesions are identified. Provider Education Specialist sections are submitted in cassettes [id number] as follows: A1: Hilar margins, en face. [...] signing this report is located at [facility], [address] [place] [address], [id number], , CLIA ID: [id number] Semaj Mcnair III, MD PATHOLOGY/CYTOLOGY ORDERABLES Final Result Performing Organization Address [facility] Co de Phone Number [facility] * Transfuse Fresh Frozen Plasma (10/25/2024 [...] ORDERABLES Final Result Performing Organization Address [facility]/ZIP Co de Phone Number [facility] [address] * POC Sample Type (10/25/2024 11:40 PM EDT) POC Sample Type Arterial 10/25/2024 11:57 PM EDT [facility] Blood, Arterial 10/25/2024 1 1:40 PM EDT 10/25/2024 11:57 PM EDT us Semaj Mcnair III, MD POINT OF CARE TEST ORDERABLES Final Result Performing Organization Address City/[facility] Co de Phone Number [facility] [address] * POC Anion Gap (10/25/2024 11:40 PM EDT) POC Anion Gap, Arterial 13 3 - 16 mmol/L 10/25/2024 11:57 PM EDT [facility] Blood, Arterial 10/25/2024 1 1:40 PM EDT 10/25/2024 11:57 PM EDT Semaj Mcnair III, MD POINT OF CARE TEST ORDERABLES Final Result Performing Organization Address [facility] Co de Phone Number [facility] [address] * POC Chloride (10/25/2024 11:40 PM EDT) POC Chloride 102 98 - 110 mmol/L 10/25/2024 11:57 PM EDT [facility] Blood, Arterial 10/25/2024 1 1:40 PM EDT 10/25/2024 11:57 PM EDT Semaj Mcnair III, MD POINT OF CARE TEST ORDERABLES Final Result Performing Organization Address City/[facility] Co de Phone Number [facility] [address] * (ABNORMAL) POC Hemoglobin (10/25/2024 11:40 PM EDT) POC Hemoglobin 6.6(L) 14.0 - 18.0 g/dL 10/25/2024 11:57 PM EDT [facility] Blood, Arterial 10/25/2024 1 1:40 PM EDT 10/25/2024 11:57 PM EDT us Semaj Mcnair III, MD POINT OF CARE TEST ORDERABLES Final Result Performing Organization Address City/[facility]/ZIP Co de Phone Number [address] * (ABNORMAL) POC hematocrit (10/25/2024 11:40 PM EDT) POC Hematocrit 19.0(L) 40 - 52 % 10/25/2024 11:57 PM EDT [facility] Blood, Arterial 10/25/2024 1 1:40 PM EDT 10/25/2024 11:57 PM EDT us Semaj Mcnair III, MD POINT OF CARE TEST ORDERABLES Final Result Performing Organization Address [facility] Co de Phone Number [address] * POC Lactate (10/25/2024 11:40 PM EDT) Pathologist [facility] POC Lactate 1.36 0.50 - 2.20 mmol/L 10/25/2024 11:57 PM EDT [facility] Blood, Arterial 10/25/2024 1 1:40 PM EDT 10/25/2024 11:57 PM EDT us Semaj Mcnair III, MD POINT OF CARE TEST ORDERABLES Final Result Performing Organization Address City/[facility] Co de Phone Number [address] [facility]. [address] * (ABNORMAL) POC Glucose (10/25/2024 11:40 PM EDT) POC Glucose, Arterial 101(H) 70 - 100 mg/dL 10/25/2024 11:57 PM EDT [facility] Blood, Arterial 10/25/2024 1 1:40 PM EDT 10/25/2024 11:57 PM EDT us Semaj Mcnair III, MD POINT OF CARE TEST ORDERABLES Final Result Performing Organization Address City/[facility]/ZIP Co de Phone Number [facility] [address] [place] [address]. [address] * POC Ionized Calcium (10/25/2024 11:40 PM EDT) POC Ionized Calcium 4.50 4.50 - 5.30 mg/dL 10/25/2024 11:57 PM EDT [facility] Blood, Arterial 10/25/2024 1 1:40 PM EDT 10/25/2024 11:57 PM EDT Semaj Mcnair III, MD POINT OF CARE TEST ORDERABLES Final Result Performing Organization Address [facility] Co de Phone Number [facility] [address] [place] [address]. [address] * (ABNORMAL) POC Potassium (10/25/2024 11:40 PM EDT) [facility] POC Potassium 1.9(LL) 3.5 - 5.3 mmol/L 10/25/2024 11:57 PM EDT [facility] Blood, Arterial 10/25/2024 1 1:40 PM EDT 10/25/2024 11:57 PM EDT us Semaj Mcnair III, MD POINT OF CARE TEST ORDERABLES Final Result Performing Organization Address City/[facility]/ZIP Co de Phone Number [facility] [address] [place] [address]. [address] * (ABNORMAL) POC Sodium (10/25/2024 11:40 PM EDT) Pathologist [facility] POC Sodium 135(L) 136 - 146 mmol/L 10/25/2024 11:57 PM EDT [facility] Blood, Arterial 10/25/2024 1 1:40 PM EDT 10/25/2024 11:57 PM EDT Semaj Mcnair III, MD POINT OF CARE TEST ORDERABLES Final Result Performing Organization Address City/[facility]/ZIP Co de Phone Number [facility] [address] [facility]. [address] * (ABNORMAL) POC TCO2 (10/25/2024 11:40 PM EDT) POC TCO2, Arterial 21(L) 23 - 27 mmol/L 10/25/2024 11:57 PM EDT [facility] Blood, Arterial 10/25/2024 1 1:40 PM EDT 10/25/2024 11:57 PM EDT Semaj Mcnair III, MD POINT OF CARE TEST ORDERABLES Final Result Performing Organization Address [facility] Co de Phone Number [facility] [facility] [address] [facility]. [address] * POC O2 SAT (10/25/2024 11:40 PM EDT) POC O2 Saturation, Arterial 98 95 - 98 % 10/25/2024 11:57 PM EDT [facility] Blood, Arterial 10/25/2024 1 1:40 PM EDT 10/25/2024 11:57 PM EDT Semaj Mcnair III, MD POINT OF CARE TEST ORDERABLES Final Result Performing Organization Address City/[facility]/ZIP Co de Phone Number [facility]. [address] * (ABNORMAL) POC Base Excess (10/25/2024 11:40 PM EDT) POC Base Excess, Arterial -6(L) -2 - 3 mmol/L 10/25/2024 11:57 PM EDT [facility] Blood, Arterial 10/25/2024 1 1:40 PM EDT 10/25/2024 11:57 PM EDT us Semaj Mcnair III, MD POINT OF CARE TEST ORDERABLES Final Result Performing Organization Address [facility] Co de Phone Number [facility] [address] [facility]. [address] * (ABNORMAL) POC HCO3 (10/25/2024 11:40 PM EDT) POC HCO3, Arterial 20(L) 22 - 26 mmol/L 10/25/2024 11:57 PM EDT [facility] Blood, Arterial 10/25/2024 1 1:40 PM EDT 10/25/2024 11:57 PM EDT Semaj Mcnair III, MD POINT OF CARE TEST ORDERABLES Final Result Performing Organization Address [facility] Co de Phone Number [facility] [address] [facility]. [address] * (ABNORMAL) POC PO2 (10/25/2024 11:40 PM EDT) POC pO2, Arterial 107(H) 80 - 100 mm Hg 10/25/2024 11:57 PM EDT [facility] Blood, Arterial 10/25/2024 1 1:40 PM EDT 10/25/2024 11:57 PM EDT Semaj Mcnair III, MD POINT OF CARE TEST ORDERABLES Final Result Performing Organization Address [facility] Co de Phone Number [facility] [address] * POC PCO2 (10/25/2024 11:40 PM EDT) POC pCO2, Arterial 41 35 - 45 mm Hg 10/25/2024 11:57 PM EDT [facility] Blood, Arterial 10/25/2024 1 1:40 PM EDT 10/25/2024 11:57 PM EDT Semaj Mcnair III, MD POINT OF CARE TEST ORDERABLES Final Result Performing Organization Address City/[facility] Co de Phone Number [facility] [address]. [address] * (ABNORMAL) POC pH (10/25/2024 11:40 PM EDT) POC pH, Arterial 7.29(L) 7.35 - 7.45 10/25/2024 11:57 PM EDT [facility] Blood, Arterial 10/25/2024 1 1:40 PM EDT 10/25/2024 11:57 PM EDT Semaj Mcnair III, MD POINT OF CARE TEST ORDERABLES Final Result Performing Organization Address [facility] Co de Phone Number [facility] Aleisha [address]ter[address]so. [address] * Urine culture (10/25/2024 11:08 PM EDT) Culture Result <1,000 cfu/mL [facility] Culture Result Skin/Urogeni rony Mckayla. No Further Workup. [facility] Newly Placed Berkowitz Urine URINE SPECIMEN / Unknown 10/25/2024 11:08 PM EDT Comment:urine culture Narrative [facility] - 10/28/2024 9:59 AM EDT urine culture urine culture Semaj Mcnair III, MD MICROBIOLOGY - GENE RAL ORDERABLES Final Result Performing Organization Address [facility] Co de Phone Number [facility] [address]isha Chish[address]m. [address] * X-ray Portable Chest (10/25/2024 10:19 [...] 10/25/2024 10:38 PM EDT Leandra Og MD G DIAGNOSTIC IMAGING ORDERABLES Final Result * Lactic Acid, STAT (10/25/2024 10:17 PM EDT) Lactate 1.6 0.5 - 2.2 mmol/L 10/25/2024 10:39 PM EDT [facility] Plasma 10/25/2024 10:1 7 PM EDT 10/25/2024 10:17 PM EDT Ben Blake MD LAB BLOOD ORDERABLES Final Re sult [facility] [address] * (ABNORMAL) Ferritin (10/25/2024 10:17 PM EDT) Ferritin 623.2(H) 23.9 - 336.2 ng/mL 10/25/2024 11:02 PM EDT [facility] Serum 10/25/2024 10:1 7 PM EDT 10/25/2024 10:17 PM EDT Leandra Og MD LAB BLOOD ORDERABLES F inal Result Performing Organization Address [facility]/ZIP Co de Phone Number [facility] [address] [facility]. [address] * Iron Studies (Iron + TIBC) (10/25/2024 10:17 PM EDT) Iron 128 50 - 212 ug/dL 10/25/2024 10:44 PM EDT [facility] % Iron Saturation SEE COMMENT 15.0 - 55.0 % 10/25/2024 10:44 PM EDT [facility] Comment:Unable to calculate result because contributing result outside reportable range.. TIBC SEE COMMENT 261 - 462 ug/dL 10/25/2024 10:44 PM EDT [facility] Comment:Unable to calculate result because contributing result outside reportable range.. Serum 10/25/2024 10:1 7 PM EDT 10/25/2024 10:17 PM EDT Leandra Og MD LAB BLOOD ORDERABLES F inal Result [facility] [address] [facility]. [address] * PTH (10/25/2024 10:17 PM EDT) PTH 36.0 12.0 - 88.0 pg/mL 10/25/2024 11:01 PM EDT [facility] Serum 10/25/2024 10:1 7 PM EDT 10/25/2024 10:17 PM EDT us Leandra Og MD LAB BLOOD ORDERABLES F inal Result [facility] [address] * HIV 1+2 Antibody/Antigen with Reflex (10/25/2024 10:17 PM EDT) HIV 1+2 AB/AGN Nonreactive Nonreactive 10/25/2024 11:03 PM EDT [facility] Serum 10/25/2024 10:1 7 PM EDT 10/25/2024 10:16 PM EDT Narrative [facility] - 10/25/2024 11:03 PM EDT \HIVRNR us Leandra Og MD LAB BLOOD ORDERABLES F inal Result [facility] [address] [employer] [facility]. [address] * Hepatitis B Core Antibody (10/25/2024 10:17 PM EDT) Hep B Core Total Ab Nonreactive Nonreactive 10/25/2024 11:07 PM EDT [facility] Comment:Health Department no tified in accordance with reportable infectious disease guidelines. Serum 10/25/2024 10:1 7 PM EDT 10/25/2024 10:17 PM EDT Narrative [facility] - 10/25/2024 11:07 PM EDT A nonreactive final interpretation indicates that anti-HBc antibodies were not detected in the sample; it is possible that the individual is not infected with HBV. us Leandra Og MD LAB BLOOD ORDERABLES F inal Result [facility] [address] [facility]. [address] * Hepatitis C Antibody (10/25/2024 10:17 PM EDT) HCV Ab Nonreactive Nonreactive 10/25/2024 11:16 PM EDT [facility] Comment:Health Department no tified in accordance with reportable infectious disease guidelines. Serum 10/25/2024 10:1 7 PM EDT 10/25/2024 10:17 PM EDT Narrative [facility] - 10/25/2024 11:16 PM EDT Antibodies to HCV not detected; does not exclude the possibility of exposure to HCV. us Leandra Og MD LAB BLOOD ORDERABLES F inal Result Performing Organization Address City/[facility] Co de Phone Number [facility] [address] [place] [address]. [address] * (ABNORMAL) Hepatitis B Surface Antibody, Quantitati (10/25/2024 10:17 PM EDT) HBSAB NUMBER 10.70(H) 0.00 - 9.99 mIU/mL 10/25/2024 11:52 PM EDT [facility] Hep B S Ab Equivocal (A) Nonreactive 10/25/2024 11:52 PM EDT [facility] Serum 10/25/2024 10:1 7 PM EDT 10/25/2024 10:17 PM EDT Leandra Og MD LAB BLOOD ORDERABLES F inal Result [facility] [address] [facility]. [address] * Hepatitis B surface antigen (10/25/2024 10:17 PM EDT) Hep B Surface Ag Nonreactive Nonreactive 10/25/2024 11:12 PM EDT [facility] Comment:Health Department no tified in accordance with reportable infectious disease guidelines. Serum 10/25/2024 10:1 7 PM EDT 10/25/2024 10:17 PM EDT [facility] - 10/25/2024 11:12 PM EDT Specimen is considered negative for HBsAg. us Leandra Og MD LAB BLOOD ORDERABLES F inal Result Performing Organization Address City/[facility] Co de Phone Number [facility] [address] [facility]. [address] * Hepatitis A Antibody Total (10/25/2024 10:17 PM EDT) Pathologist [facility] Anti-HAV Total (IgG + IgM) Nonreactive 10/25/2024 11:13 PM EDT [facility] Serum 10/25/2024 10:1 7 PM EDT 10/25/2024 10:17 PM EDT [facility] - 10/25/2024 11:13 PM EDT HAV antibodies not detected us Leandra Og MD LAB BLOOD ORDERABLES F inal Result Performing Organization Address [facility] [[email or web address]] de Phone Number [facility] [address] [facility]. [address] * (ABNORMAL) Hepatic Function Panel (10/25/2024 10:17 PM EDT) Total Bilirubin 9.1(H) 0.0 - 1.5 mg/dL 10/25/2024 10:47 PM EDT [facility] Bilirubin, Direct 4.58(H) 0.00 - 0.40 mg/dL 10/25/2024 10:47 PM EDT [facility] AST 51(H) 13 - 39 U/L 10/25/2024 10:47 PM EDT [facility] ALT 23 7 - 52 U/L 10/25/2024 10:47 PM EDT [facility] Alkaline Phosphatase 144(H) 36 - 125 U/L 10/25/2024 10:47 PM EDT [facility] Total Protein 5.5(L) 6.4 - 8.9 g/dL 10/25/2024 10:47 PM EDT [facility] Albumin 3.5 3.5 - 5.7 g/dL 10/25/2024 10:47 PM EDT [facility] Bilirubin, Indirect 4.52(H) 0.00 - 1.10 mg/dL 10/25/2024 10:47 PM EDT [facility] Plasma 10/25/2024 10:1 7 PM EDT 10/25/2024 10:17 PM EDT us Leandra Og MD LAB BLOOD ORDERABLES F inal Result [facility] [address] [place], [place] [address] * (ABNORMAL) Renal Function Panel w/EGFR (10/25/2024 10:17 PM EDT) Sodium 137 133 - 146 mmol/L 10/25/2024 10:47 PM EDT [facility] Potassium 2.1(LL) 3.5 - 5.3 mmol/L 10/25/2024 10:47 PM EDT [facility] Comment:Critical Result K:2. 1 Called to and read back by: ALICIA CARCAMO RN at: 10/25/2024 22:47:45 by:NANCY Chloride 100 98 - 110 mmol/L 10/25/2024 10:47 PM EDT [facility] CO2 20(L) 21 - 33 mmol/L 10/25/2024 10:47 PM EDT [facility] Anion Gap 17(H) 3 - 16 mmol/L 10/25/2024 10:47 PM EDT [facility] BUN 74(H) 7 - 25 mg/dL 10/25/2024 10:47 PM EDT [facility] Creatinine 3.87(H) 0.60 - 1.30 mg/dL 10/25/2024 10:47 PM EDT [facility] Glucose 114(H) 70 - 100 mg/dL 10/25/2024 10:47 PM EDT [facility] Calcium 9.3 8.6 - 10.3 mg/dL 10/25/2024 10:47 PM EDT [facility] Phosphorus 5.9(H) 2.1 - 4.7 mg/dL 10/25/2024 10:47 PM EDT [facility] Albumin 3.5 3.5 - 5.7 g/dL 10/25/2024 10:47 PM EDT [facility] Osmolality, Calculated 307(H) 278 - 305 mOsm/kg 10/25/2024 10:47 PM EDT [facility] EGFR 19 10/25/2024 10:47 PM EDT [facility] Comment:As [...] ORDERABLES F inal Result Performing Organization Address [facility] Co de Phone Number [facility] [address] [facility]. [address] * (ABNORMAL) APTT, NO ANTICOAGULANT (10/25/2024 10:17 PM EDT) aPTT 41.7(H) 25.5 - 35.0 seconds 10/25/2024 10:36 PM EDT [facility] Plasma 10/25/2024 10:1 7 PM EDT 10/25/2024 10:17 PM EDT Leandra Og MD LAB BLOOD ORDERABLES F inal Result Performing Organization Address City/[facility]/ZIP Co de Phone Number [facility] [address] [facility]. [address] * (ABNORMAL) Protime-INR (10/25/2024 10:17 PM EDT) Protime 21.7(H) 12.1 - 15.1 seconds 10/25/2024 10:35 PM EDT [facility] INR 1.8(H) 0.9 - 1.1 10/25/2024 10:35 PM EDT [facility] Comment: RECOMMENDED THERAPEUTIC RANGES USING INR : Stable oral anticoagulant therapy: 2.0 - 3.0 Mechanical prosthetic heart valve: 2.5 - 3.5 Recurrent acute myocardial infarction: 2.5 - 3.5 Plasma 10/25/2024 10:1 7 PM EDT 10/25/2024 10:17 PM EDT us Leandra Og MD LAB BLOOD ORDERABLES F inal Result [facility] [address] * (ABNORMAL) Differential (10/25/2024 10:17 PM EDT) Pathologist [facility] Differential Comments See Note 10/25/2024 10:54 PM EDT [facility] Comment: _Platelets Appear Decreased _Platelet Morphology Normal Scan Result PERFORMED 10/25/2024 10:54 PM EDT [facility] Neutrophils Relative 79.8 40.0 - 80.0 % 10/25/2024 10:54 PM EDT [facility] Lymphocytes Relative 9.6(L) 15.0 - 45.0 % 10/25/2024 10:54 PM EDT [facility] Monocytes Relative 8.9 0.0 - 12.0 % 10/25/2024 10:54 PM EDT [facility] Eosinophils Relative 1.3 0.0 - 8.0 % 10/25/2024 10:54 PM EDT [facility] Basophils Relative 0.4 0.0 - 1.0 % 10/25/2024 10:54 PM EDT [facility] nRBC 0 0 - 0 /100 WBC 10/25/2024 10:54 PM EDT [facility] Neutrophils Absolute 4,948 1,520 - 8,640 /uL 10/25/2024 10:54 PM EDT [facility] Lymphocytes Absolute 595 570 - 4,860 /uL 10/25/2024 10:54 PM EDT [facility] Monocytes Absolute 552 0 - 1,296 /uL 10/25/2024 10:54 PM EDT [facility] Eosinophils Absolute 81 0 - 864 /uL 10/25/2024 10:54 PM EDT [facility] Basophils Absolute 25 0 - 108 /uL 10/25/2024 10:54 PM EDT [facility] PLT Morphology Platelet morphology appears normal 10/25/2024 10:54 PM EDT [facility] Whole Blood 10/25/2024 10:1 7 PM EDT 10/25/2024 10:17 PM EDT us Leandra Og MD LAB BLOOD ORDERABLES F inal Result Performing Organization Address City/State/[facility] Co de Phone Number [facility] [address] * (ABNORMAL) CBC (10/25/2024 10:17 PM EDT) WBC 6.2 3.8 - 10.8 10E3/uL 10/25/2024 10:54 PM EDT [facility] RBC 2.40(L) 4.20 - 5.80 10E6/uL 10/25/2024 10:54 PM EDT [facility] Hemoglobin 8.3(L) 13.2 - 17.1 g/dL 10/25/2024 10:54 PM EDT [facility] Hematocrit 23.7(L) 38.5 - 50.0 % 10/25/2024 10:54 PM EDT [facility] MCV 98.9 80.0 - 100.0 fL 10/25/2024 10:54 PM EDT [facility] MCH 34.6(H) 27.0 - 33.0 pg 10/25/2024 10:54 PM EDT [facility] MCHC 35.0 32.0 - 36.0 g/dL 10/25/2024 10:54 PM EDT [facility] RDW 17.8(H) 11.0 - 15.0 % 10/25/2024 10:54 PM EDT [facility] Platelets 56(L) 140 - 400 10E3/uL 10/25/2024 10:54 PM EDT [facility] Comment: Specimen checked for clots. None detected. Slide Reviewed for PLT Clumps. None Seen. Platelet Estimate Decreased 10/25/2024 10:54 PM EDT [facility] MPV 8.1 7.5 - 11.5 fL 10/25/2024 10:54 PM EDT [facility] Whole Blood 10/25/2024 10:1 7 PM EDT 10/25/2024 10:17 PM EDT Narrative [facility] - 10/25/2024 10:54 PM EDT Peripheral blood smear was scanned per review criteria approved by the laboratory ophthalmic medical technician. Leandra Og MD LAB BLOOD ORDERABLES F inal Result Performing Organization Address [facility] [[email or web address]] de Phone Number [address] * Donor Specific Antibody (DSA) (10/25/2024 10:00 PM EDT) AntiDonor Antibodies The request and specimen(s) for this test have been received and transported to the [facility] at [address] [place] [address]. The [facility] will report results directly to the client. 10/25/2024 10:20 PM EDT [facility] Comment:Testing performed by [facility], [facility], [address] [place] [address]. The [facility] report has been forwarded to the appropriate ordering location. Please refer to this report for patient results. Serum 10/25/2024 10:0 0 PM EDT 10/25/2024 10:20 PM EDT Leandra Og MD LAB BLOOD ORDERABLES F inal Result Performing Organization Address [facility] Co de Phone Number [facility] [address] [place] [address] * (ABNORMAL) Venous Blood Gas, Line/Syringe (10/25/2024 10:00 PM EDT) PH-Line Draw 7.38 7.32 - 7.42 10/25/2024 10:08 PM EDT [facility] PCO2-Line Draw 33(L) 41 - 51 mm Hg 10/25/2024 10:08 PM EDT [facility] PO2-Line Draw 33 25 - 40 mm Hg 10/25/2024 10:08 PM EDT [facility] HCO3-Line Draw 20(L) 24 - 28 mmol/L 10/25/2024 10:08 PM EDT [facility] CO2 Content-Line Draw 21(L) 25 - 29 mmol/L 10/25/2024 10:08 PM EDT [facility] Base Excess-Line Draw -5.0(L) -2.0 - 3.0 mmol/L 10/25/2024 10:08 PM EDT [facility] %HBO2-Line Draw 53.8 40.0 - 70.0 % 10/25/2024 10:08 PM EDT [facility] Carboxyhgb-Ludivina e Draw 1.9 % 10/25/2024 10:08 PM EDT [facility] Comment: CARBOXYHEMOGLOBIN (CO) REFERENCE RANGES: Non-Smokers: <2 % Smokers: <8 % TOXIC: >20 % Methemoglobin- Line Draw 0.2 0.0 - 1.5 % 10/25/2024 10:08 PM EDT [facility] Reduced Hemoglobin-Ludivina e Draw 44.1(H) 0.0 - 5.0 % 10/25/2024 10:08 PM EDT [facility] Venous, Line Draw 10/25/2024 10:00 PM EDT 10/25/2024 10:04 PM EDT us Leandra Og MD LAB BLOOD ORDERABLES F inal Result [facility] [address] [place] [address], [facility] * (ABNORMAL) POC Glucose Monitoring Device (10/25/2024 9:56 PM EDT) POC Glucose Monitoring Device 103(H) 70 - 100 mg/dL 10/25/2024 9:58 PM EDT [facility] Blood 10/25/2024 9:56 PM EDT 10/25/2024 9:57 PM EDT Semaj Mcnair III, MD POINT OF CARE TEST ORDERABLES Final Result Performing Organization Address City/[facility]/ZIP Co de Phone Number [facility] [address] * ECG 12 lead (MUSE) (10/25/2024 9:34 PM EDT) 10/25/2024 9:34 PM EDT Narrative MUSE - 10/27/2024 10:08 AM EDT Ventricular Rate: 97 BPM Atrial Rate: 86 BPM QRS Duration: 106 ms QT: 532 ms QTc: 675 ms P Henderson: 38 degrees R Henderson: -29 degrees T Henderson: 32 degrees Diagnosis Line: Critical Test Result: Long QTc , AV Block ^ SINUS RHYTHM WITH PREMATURE VENTRICULAR COMPLEXES ^ PROLONGED QT ^ NONSPECIFIC ST AND T WAVE CHANGES ^ ABNORMAL ECG ^ ^ Confirmed by MD HA, [facility] ([id number]) on 10/27/2024 10:08:26 AM Leandra Og MD ECG ORDERABLES Final Result Performing Organization Address [facility] Co de Phone Number MUSE * Hepatitis C RNA, Quant Reflex to Genotyp (10/25/2024 8:18 PM EDT) Pathologist [facility] International Units Not Detected IU/mL 10/27/2024 11:03 AM EDT [facility] Comment:Test methodology for HCV RNA quantification is an FDA-approved nucleic acid amplification assay. The Lower Limit of Quantitation (LLOQ) is 15 IU/mL. The linear range of the assay is 15-100,000,000 IU/mL. The Limit of Detection (LoD) is 12.0 IU/mL for EDTA plasma. The reference range is Not Detected. IU log10 See Note log 10 IU/mL 10/27/2024 11:03 AM EDT [facility] Comment:HCV RNA not detected . Plasma 10/25/2024 8:18 PM EDT 10/25/2024 10:27 PM EDT us Leandra Og MD LAB BLOOD ORDERABLES F inal Result Performing Organization Address [facility]/State/ZIP Co de Phone Number [facility] [address] [place] [address], [facility] * Urinalysis w/Rfl to Microscopic (10/25/2024 8:18 PM EDT) Color, UA Yellow Yellow,Straw 10/25/2024 10:38 PM EDT [facility] Clarity, UA Clear Clear 10/25/2024 10:38 PM EDT [facility] Specific Smoot, UA 1.010 1.005 - 1.035 10/25/2024 10:38 PM EDT [facility] pH, UA 6.0 5.0 - 8.0 10/25/2024 10:38 PM EDT [facility] Protein, UA Negative Negative mg/dL 10/25/2024 10:38 PM EDT [facility] Glucose, UA Negative Negative mg/dL 10/25/2024 10:38 PM EDT [facility] Ketones, UA Negative Negative mg/dL 10/25/2024 10:38 PM EDT [facility] Bilirubin, UA Negative Negative 10/25/2024 10:38 PM EDT [facility] Blood, UA Negative Negative 10/25/2024 10:38 PM EDT [facility] Nitrite, UA Negative Negative 10/25/2024 10:38 PM EDT [facility] Urobilinogen, UA <2.0 0.2 - 1.9 mg/dL 10/25/2024 10:38 PM EDT [facility] Leukocyte Esterase, UA Negative Negative 10/25/2024 10:38 PM EDT [facility] Urine 10/25/2024 8:18 PM EDT 10/25/2024 10:35 PM EDT Narrative [facility] - 10/25/2024 10:38 PM EDT Microscopic testing is not performed when the dipstick is negative for blood, leukocyte, protein and nitrite. us Leandra Og MD URINE ORDERABLES Final Result [facility] [address] [facility]. [address] * Toxoplasma gondii antibody, IgG (10/25/2024 8:18 PM EDT) Pathologist [facility] Toxoplasma Gondii IgG <3.0 0.0 - 7.1 IU/mL 10/27/2024 7:55 AM EDT [facility] Comment: Negative <7.2 Equivocal 7.2 - 8.7 Positive >8.7 Serum 10/25/2024 8:18 PM EDT 10/27/2024 8:06 AM EDT [facility] - 10/27/2024 8:06 AM EDT PERFORMED AT: [facility] [id number] [employer]IGHT ATTENDANT IN[employer]IGHT SERVICES: Bassam Khalil, PhD PHONE: [phone] us Leandra Og MD LAB BLOOD ORDERABLES F inal Result Performing Organization Address City/[facility]/ZIP Co de Phone Number [facility] [address] [facility]. [address] * Antibody Screen (10/25/2024 7:46 PM EDT) [facility] Antibody Screen Negative 10/25/2024 10:41 PM EDT [facility] Blood 10/25/2024 7:46 PM EDT 10/25/2024 9:54 PM EDT [facility] - 10/25/2024 10:44 PM EDT Testing performed by [facility] Transfusion Service Ben Blake MD BLOOD BANK TEST ORDERABLES Fi nal Result [facility] [address] [facility]. [address] * ABO/Rh (10/25/2024 7:46 PM EDT) ABO Grouping O 10/25/2024 10:23 PM EDT [facility] Rh Type Positive 10/25/2024 10:23 PM EDT [facility] Blood 10/25/2024 7:46 PM EDT 10/25/2024 9:54 PM EDT us Ben Blake MD BLOOD BANK TEST ORDERABLES Fi nal Result [facility] [address] [place] [address], [facility] * (ABNORMAL) TEG-Standard Global Hemostasis (Rapid TEG with Heparin Effect, Contains a Baseline TEG) (10/25/2024 7:46 PM EDT) Citrated Kaolin Reaction Time (TEGHEPARINASE) 8.4 4.6 - 9.1 minutes 10/25/2024 10:49 PM EDT [facility] Citrated Rapid Teg Maximum Amplitude (TEGHEPARINASE) <40.0(L) 52.0 - 70.0 mm 10/25/2024 10:49 PM EDT [facility] Citrated Functional Fibrinogen Maximum Amplitude (TEGHEPARINASE) 6.7(L) 15.0 - 32.0 mm 10/25/2024 10:49 PM EDT [facility] Citrated Kaolin W/Heparinase Reaction Time (TEGHEPARINASE) 8.1 4.3 - 8.3 minutes 10/25/2024 10:49 PM EDT [facility] Citrated Kaolin K-Time (TEGHEPARINASE) 2.5(A) 0.8 - 2.1 minutes 10/25/2024 10:49 PM EDT [facility] Citrated Kaolin Angle (TEGHEPARINASE) 65.7(A) 63.0 - 78.0 degrees 10/25/2024 10:49 PM EDT [facility] Citrated Kaolin Maximum Amplitude (TEGHEPARINASE) <40.0(L) 52.0 - 69.0 mm 10/25/2024 10:49 PM EDT [facility] Citrated Functional Fibrinogen- Fibrinogen Level (TEGHEPARINASE) 159.5(L) 278.0 - 581.0 mg/dL 10/25/2024 10:49 PM EDT [facility] Whole Blood (Citrate) 10/25/2024 7:46 PM EDT 10/25/2024 10:15 PM EDT us Ben Blake MD LAB BLOOD ORDERABLES Final Re sult [facility] [address] [place] [address], [facility] documented in this encounter Visit Diagnoses [...] mL IV infusion As needed, Starting on Sun10/25/24 at 2127, Intra-op Given 10/26/2024 12:05 AM [...] 0-10 Units 0-10 Units, Subcutaneous, At Bedtime (2099), First [...] Paulette Flannery, [id number] (Given - Provider: Yvonne Gale RN) 0543 (Given - Provider: Yvonen Gale RN)1219 (Given - Provider: Paulette Flannery [...] mg (COMPLETED) 40 mg, Intravenous, Once, On Sun 22/25 at 0900, For 1 dose, Give doses of 100mg or less over 5 minutes. For doses over 100mg, give at rate of up to 20mg/min. 1148 (Given - Provider: Paulette Flannery RN) gabapentin (NEURONTIN) capsule 100 mg 100 mg, Oral, 3 times daily, First dose on Sun10/31/24 at 0900 1046 (Given - Provider: Paulette Flannery RN)1433 (Given - Provider: Paulette Flannery RN)205 (Given - Provider: Yvonne Gale RN) 1021 [...] ЮЛИЯ)2056 (Given - Provider: Yvonne Gale RN) 0614 (Given - Provider: Yvonne Gale RN)1345 (Given - Provider: Paulette Flannery RN)2119 (Given [...] RN)2118 (Given - Provider: Yvonne Gale, ЮЛИЯ) 114 (Given - Provider: Paulette Flannery RN) [...] Group 3) 25 mg, Oral, Once, On 11/02/24 at [...] RN)2118 (Given - Provider: Yvonne Gale, ЮЛИЯ) sodium bicarbonate tablet 1,300 mg 1,300 mg, Oral, 3 times daily, First dose on Sun10/31/24 at 1300 1254 (Given - Provider: Paulette Flannery RN)2055 (Given - Provider: Yvonne Gale, ЮЛИЯ) 1019 (Given - Provider: Paulette Flannery RN)1344 (Given - Provider: Paulette Flannery RN)2119 (Given - Provider: Yvonne Gale RN) 1141 (Given - Provider: Paulette Flannery, ЮЛИЯ)1531 (Given - Provider: Meka Montalvo RN) sulfamethoxazole-trimeth [...] 1901 (Given - Provider: Paulette Flannery RN) 0571 (Given - Provider: Yvonne Gale RN) tacrolimus [...] Paulette Flannery, ЮЛИЯ)1844 (Given - Provider: Vivi Newton, ЮЛИЯ)2232 (Given - Provider: Yvonne Gale, ЮЛИЯ) 0215 (Given - Provider: Yvonne Gale, ЮЛИЯ)0615 (Given - Provider: Yvonne Gale, RN)1153 (Given - Provider: Paulette Flannery, ЮЛИЯ)1714 [...] documented as of this encounter Care Teams Market Developer Relationship Specialty Start Date End Date Enedina Mcguire NP [address] [place] [address] PCP - General Internal Medicine 10/05/24 documented as of this encounter
--- OUTSIDE RECORDS SUMMARY | 2024-10-25 22:54 | XMS_ITS | Encounter Summary ---
Author Organization [facility] Address [facility] [place] [address] Care Team Providers Care Director Of Casino Marketing Name Role Phone Enedina Mcguire NP Primary Care Provider [phone] Source Comments This information has been disclosed [...] release of HIV test results or diagnoses. [id number] Reason for Visit * Auth/Cert (Routine) Specialty Diagnoses / Procedures Referred By Shane t Referred To Contact Surgical Intensive Care Diagnoses Liver transplant recipient (CMS-HCC) cirrhosis and CKD Procedures LIVER-KIDNEY TRANSPLANT [facility] SICU [address] [place] [address] Phone: tel: Referral ID Status Reason Start Date Expiration Date Visits Re quested Visits Authorized [id number] 1 1 Encounter Details Date Type Department Care Team (Late st Contact Info) Description 10/25/2024 10:54 PM EDT Anesthesia Event [facility] PERIOP [address] [place] [address] Eber Quinones MD [address] [place] [address] Maureen Fleming MD [address] [place] [address] Anesthesia Record Procedure Summary Procedure Name Responsible [...] sodium chloride 0.9% 1 00 mL IVPB (Raww8Ebz) 4 g cefTRIAXone (ROCEPHIN) 2 g in sodium chl oride 0.9 % 100 mL Cnen2Pba 8 g fluconazole (DIFLUCAN) 200 mg in [...] Sounds Confirmed 10/26/24 0622 by Martha Phillip, DIE REPAIRER FORGING 10/27/24 1310 by Chinedu Almeida, RONALDO documented [...] the past 12 months has th e [employer], oil, or water [employer] threatened to shut off services in your [...] Blake MD - 10/25/2024 7:26 PM EDT [facility] DEPARTMENT OF ANESTHESIOLOGY PRE-PROCEDURAL EVALUATION Julien [...] dysrhythmias, angina, orthopnea. ECG reviewed. ROS comment: [facility] 10/14/24: IMPRESSIONS: - Patent coronary [...] is no recent study available for direct whkx-je-nppg comparison. Stress echo 10/09/24: - Left ventricle: [...] at baseline or with provocation, shows no yqgcx-xz-igxt atrial level shunt. - Pulmonary arteries: Systolic [...] Strain: Low Risk (07/09/2024) Received from [facility] Overall Financial Resource Strain (CARDIA) Difficulty of [...] No Physical Activity: Unknown (07/14/2024) Received from [facility] Exercise Vital Sign Days of Exercise per Week: Patient unable to answer Minutes of Exercise per Session: Not on file Stress: Patient Unable To Answer (07/14/2024) Received from [facility] [place] of Occupational Health - Occupational Stress Questionnaire Feeling of Stress : Patient unable to answer Social Connections: Patient Unable To Answer (07/14/2024) Received from [facility] Social Connection and Isolation Panel [NHANES] [...] times a day. naloxone (NARCAN) 4 mg/actuation [place] Apply 1 spray in one nostril [...] MD - 10/25/2024 11:54 PM EDTAssociated Order(s): [place] Emily Cath [place] Emily Cath Date/Time: 10/25/2024 11:13 PM Performed [...] procedure performed. Ben Blake MD Attending Anesthesiologist [facility] * Jimmy Gonzalez MD - 10/25/2024 11:52 PM EDTAssociated Order(s): Insert Arterial Line Insert Arterial Line Date/Time: 10/25/2024 10:45 PM Performed by: Maureen Fleimng MD Authorized by: Ben Blake MD Consent: [...] procedure performed. Ben Blake MD Attending Anesthesiologist [facility] documented in this encounter Plan of [...] EDT Ben Blake MD 10/26/2024 7:45 PM [place] [facility] Date/Time: 10/25/2024 11:13 PM Performed [...] - 10/26/2459 10/26/24699 - 10/27/24 0659 Shift 3582-3312 8912-4127 4947-8147 24 Hour Total 2278-7520 5197-5276 4359-0603 24 Hour Total INTAKE I.V. 9100(74.3) 9100(74.3) [...] in sodium chloride 0.9 % 100 mL Ohwi4Qmv) 100 100 Volume (mL) (AMPicillin 2 g in sodium chloride 0.9% 100 mL IVPB (Lyam5Sbc)) 200 200 Volume (mL) (albumin human bottle 5%) 1000 1000 Volume (mL) (potassium chloride (KCl)/Sterile water 100 mL 10 mEq/100 mL IVPB) 200 200 Shift Total(mL/kg) 73326(151.9) 95664(151.9) OUTPUT Urine 150(0.2) 1375 1525 Urine 150 [...] in sodium chloride 0.9% 100 mL IVPB (Yvut1Mlh) 2 g, Intravenous, at 200 mL/hr, Every 6 hours, First dose on 10/26/24 at 0000, Use Qyxz0Ebr Adapter - Mix Thoroughly Before Administration Bolus [...] in sodium chloride 0.9 % 100 mL Jkmv6Msz 2 g, Intravenous, Administer over 30 Minutes, Once, Use Tfcb2Azm Adapter - Mix Thoroughly Before Administration, Indication? [...] documented as of this encounter Care Teams Director Of Casino Marketing Relationship Specialty Start Date End Date Enedina Mcguire NP [address] [place] [address] PCP - General Internal Medicine 10/05/24 documented as of this encounter
--- OUTSIDE RECORDS SUMMARY | 2024-10-27 02:00 | XMS_ITS | Encounter Summary ---
Author Organization [facility] Address [address] [place] [address] Care Team Providers Care Body Die Maker Name Role Phone Enedina Mcguire NP Primary Care Provider [phone] Source Comments This information has been disclosed [...] release of HIV test results or diagnoses. [id number] Reason for Visit * Auth/Cert (Routine) Specialty Diagnoses / Procedures Referred By Shane hernadez Referred To Contact Surgical Intensive Care Diagnoses Liver transplant recipient (CMS-HCC) cirrhosis and CKD Procedures LIVER-KIDNEY TRANSPLANT [facility] SICU [address] [place] [address] Phone: tel: Referral ID Status Reason Start Date Expiration Date Visits Re quested Visits Authorized [id number] 1 1 Encounter Details Date Type Department Care Team (Late st Contact Info) Description 10/27/2024 2:00 AM EDT - 10/27/2024 6:54 AM EDT Surgery [facility] PERIOP [address] [place] [address] Semaj Mcnair III, MD [address] [facility] [address] [place] [address] Donor Kidney Transplant , Back [...] Recorded In the past 12 months has [employer], oil, or water [employer] threatened to shut off services in [...] MD - 11/02/2024 2:04 PM EDT [facility] Liver Transplant Surgical Service Inpatient Discharge Summary Patient: Blair Gilbert : 1985 [facility]: [id number] Date of Admission: 10/25/2024 Date of Discharge: [...] Case IDs Date Procedure Surgeon Location Status [id number] 10/25/24 LIVER TRANSPLANT Semaj Mcnair III, MD OR Comp [id number] 10/27/24 Donor Kidney Transplant , Back Bench [...] EXAM: US ABDOMEN LIMITED EXAM: US DUPLEX [id number] COMPLETE INDICATION: Post-op liver transplant COMPARISON: None [...] visualized secondary to poor acoustic windows. The prairie band right kidney measures 11.6 cm in [...] 30 tablet Refills: 0 naloxone 4 mg/actuation [place] Commonly known as: NARCAN Apply 1 [...] [facility] NAA Baum [address] Mya 105[facility] [place] [address] mycophenolate 250 mg capsule tacrolimus 1 MG capsule These medications were sent to [facility] [address] [place] [address] Hours: Sunday - Sunday: 8:00AM - 6:00PM [...] Case IDs Date Procedure Surgeon Location Status [id number] 10/25/24 LIVER TRANSPLANT Semaj Mcnair III, MD OR Comp [id number] 10/27/24 Donor Kidney Transplant , Back Bench [...] discharge. NEURO/PAIN - Patient placed on Dilaudid POLISHER BALANCE SCREWHEAD once extubated, then transitioned to multi-modal pain [...] the following regimen: HDSSI. Patient met w/ agricultural extension educator prior to discharge. HEME - Post-operatively, [...] Patient and family received post-transplant education from employee benefits coordinator as well as medication teaching from [...] Center 11/04/2024 8:40 AM LTRA SURGERY, [facility] LTRA HOX HOX 11/04/2024 10:10 AM LTRA HEPATORENAL HOX LTRA HOX HOX 11/25/2024 9:00 AM NAA Merida [facility] URO MAB MAB 12/02/2024 2:00 PM Bossman Huffman MD [facility] MARIANGEL MAB MAB 02/25/2025 10:50 AM Bruno Gonzalez MD KTSP HOX HOX Kenyetta Hartman, MS-4 [facility] SHAY PLATA MD 11/02/2024 12:50 PM [...] kept under 2 gm/day. Please discuss withyour event marketing coordinator if you have any question about appropriate dose to take. Other Instructions: Call post-liver transplant clinic with questions [phone] or call [facility] at [phone] and ask for the liver employee benefits coordinator cotton seed culler if you experience any of the following: [...] Center 11/04/2024 8:40 AM LTRA SURGERY, [facility] LTRA HOX HOX 11/04/2024 10:10 AM LTRA HEPATORENAL [facility] LTRA HOX HOX 11/25/2024 9:00 AM NAA Merida [facility] URO MAB MAB 12/02/2024 2:00 [...] AM EDT 10/30/2024 naloxone (NARCAN) 4 mg/actuation [place] Apply 1 spray in one nostril [...] 11/02/2024 5 blood sugar diagnostic (GLUCOSE BLOOD) Str Use to test blood sugar up to 4 times a day. 100 strip 11 11/02/2024 10:20 AM EDT 10/27/2024 5 blood-glucose meter (TRUE METRIX GLUCOSE METER) [facility] Use to test blood sugar up to [...] EDT 10/27/2024 5 lancets (ACCU-CHEK SOFTCLIX LANCETS) [facility] Use to test blood sugar up to [...] fair Expected caregiver involvement?: is primary med surgery manager Need for additional education in clinic?: [...] Disp-15 mL, R-2 lancets (ACCU-CHEK SOFTCLIX LANCETS) [facility] Use to test blood sugar up to 4 times a day., Starting 10/27/2024, Normal, Disp-100 each, R-11 linezolid (ZYVOX) 600 [...] Disp-30 tablet, R-0 naloxone (NARCAN) 4 mg/actuation [place] Apply 1 spray in one nostril [...] Solid Organ Transplant Clinical Specialist Contact via [employer] Secure Chat * Froylan Hendrickson MD - 11/01/2024 8:04 AM EDT Liver Transplant Surgery Progress Note Name: Blair Gilbert CSN: [id number] Date: 11/01/2024 8:06 AM OR Date: 10/25/2024 [...] at 10/31/2024 4:38 PM EDT US Duplex Dyn-Sfv-Fryspoc Comp Result Date: 10/31/2024 IMPRESSION: RIGHT UPPER [...] 10/25/2024 - 10/27/2024. Plan: Liver transplant recipient ([facility]-HCC) [Z94.4] Neuro: - Multimodal pain control: [...] PM EDT TXP - Follow Up [facility] Medical Nutrition Therapy Transplant Brief Note Diet Order/Nutrition Support: Diet/Nutrition Orders Diet Regular(7) high calorie 3000 kcal a day Frequency: Effective Now Number of Occurrences: Until Specified Order Questions: Additional restrictions: high calorie 3000 kcal a day Suicide/Behavior Risk Modification? No Dietary nutrition supplements Frequency: TID Number of Occurrences: Until Specified Order Questions: Select Supplement: Boost VHC- very high calorie protein supplement ([facility] only) Pertinent Information: Pt seen [...] Monitor for tolerance. Diet liberalize and Boost C ordered. Will continue to follow. EN Access: [...] Based on DBW of 93.1 kg Kcals/day: 3950-1489 (25-30 kcals/kg) Protein g/day: 140-190 (1.5-2.0 g/kg) [...] Dietitian - Solid Organ Transplant Contact via [employer] Chat * Keon Dobson - 10/31/2024 2:35 PM EDT [facility] Spiritual Care Volunteer Visit PATIENT NAME: Blair Gilbert ROOM:8025/U8025 Bahai Affiliation:Zoroastrian Blair Gilbert was visited by a volunteer today. No needs requiring a visit from a staff side door worker were expressed at that time. Care Provided: Communion, Prayer/ blessing Please page our service at [phone] as needs arise for patient and/or family. Fr Dean Dobson Zoroastrian side door worker Spiritual Care Dept * Brittany Horne PT [...] issued by OT: Long-handled sponge, Sock aid, Improvement Spec, Other (comment) Equipment issued by OT comment: leg shuttle van driver Assessment Assessment: Decreased ADL status, Decreased IADLs, [...] IADL task (Goal met and continued 10/31) Hurl Shaker Goal : Pt will complete bathing assessment and transfer FCI goal to be met in: 2 weeks [...] liver (CMS-HCC) Esophageal varices (CMS-HCC) Hepatorenal syndrome ([facility]-HCC) Hypertension Other hyperlipidemia 07/26/2024 Renal cell carcinoma (CMS-HCC) Thrombocytopenia ([facility]-HCC) Thyroid disease Past Surgical History Past [...] Patient Active Problem List Diagnosis Decompensated cirrhosis ([facility]-HCC) Acute kidney injury superimposed on CKD ([facility]-HCC) Alcohol use disorder Metabolic encephalopathy Hypertension [...] 0659 10/31/24 07 - 11/01/24 0659 Shift 6640-1518 8593-9081 5272-4577 24 Hour Total 9685-7077 9811-8959 5791-4972 24 Hour Total INTAKE P.O. 240 240 P.O. 240 240 Shift Total(mL/kg) 240(1.9) 240(1.9) OUTPUT Urine(mL/kg/hr) 1850(1.8) 600(0.6) 600(0.6) 3050(1) 350 350 Urine 800 580 437 9187 350 350 Urine Occurrence 2 x 2 [...] with further concerns Lavell Kramer MD 10/31/[phone] * Priti Geiger CNP - 10/31/2024 10:06 AM EDT Liver Transplant Surgery Progress Note Name: Blair Gilbert CSN: [id number] Date: 10/31/2024 10:06 AM OR Date: 10/25/2024 [...] 10/28/24 1109 LACTATE 0.3* Imaging US Duplex Jwz-Rhl-Knoxrxn Comp Result Date: 10/28/2024 IMPRESSION: ABDOMINAL ULTRASOUND [...] 10/25/2024 - 10/27/2024. Plan: Liver transplant recipient ([facility]-HCC) [Z94.4] Neuro: - Multimodal pain control: [...] Transplant Nephrology Progress Note Patient: Blair Gilbert [id number] 8025/U8025 Date of Admit: 10/25/2024. 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 Lauren Santos, SAMSON, GUM MIXER, BUSINESS PROCESS CONSULTANT- Transplant Nephrology [phone] Preferred contact: secure chat The HPI, ROS, [...] 3 shifts: Date 10/29/24699 - 10/30/2465810/30/24699 - 10/31/24658 Shift 1168-1132 7077-6185 5880-0924 24 Hour Total 6368-3251 6438-3462 9519-0279 24 Hour Total INTAKE P.O. 240 240 480 P.O. 240 240 480 IV Piggyback 87.2 87.2 Volume (mL) (micafungin (MYCAMINE) 50 mg in sodium chloride 0.9 % 100 mL Angt9Ady IVPB) 87.2 87.2 Shift Total(mL/kg) 240(2) 327.2(2.7) 567.2(4.4) OUTPUT Urine(mL/kg/hr) 600(0.6) 1175(1.2) 450(0.4) 2225(0.7) 550 550 Output (mL) (IUC (Berkowitz) Triple-lumen (3-Way) 18 Fr.) 600 0095 837 9305 550 550 Drains 175 245 100 520 [...] month of prophylaxis Lavell Kramer MD 10/30/[phone] * Priti Geiger CNP - 10/30/2024 10:36 AM EDT Liver Transplant Surgery Progress Note Name: Blair Gilbert CSN: [id number] Date: 10/30/2024 10:37 AM OR Date: 10/25/2024 [...] 1109 LACTATE 0.5 0.3* Imaging US Duplex Jtm-Zbb-Psefxxh Comp Result Date: 10/28/2024 IMPRESSION: ABDOMINAL ULTRASOUND [...] 10/25/2024 - 10/27/2024. Plan: Liver transplant recipient ([facility]-HCC) [Z94.4] Neuro: - Multimodal pain control: [...] Transplant Nephrology Progress Note Patient: Blair Gilbert [id number] 8025/U8025 Date of Admit: 10/25/2024. 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 Lauren Santos, SAMSON, GUM MIXER, BUSINESS PROCESS CONSULTANT- Transplant Nephrology [phone] Preferred contact: secure chat The HPI, ROS, [...] Other (See Comments) Became Manic Cosigned by aAron Gonzalez MD at 10/30/2024 4:24 PM EDT Associated attestation - Aaron Gonzalez MD - 10/30/2024 4:24 PM EDT Pt seen, examined, and discussed with DIRECTOR OF MARKETING ANALYTICS on 10/30/2024. reviewed the chart including the [...] PM EDT TXP - Follow Up [facility] Medical Nutrition Therapy Follow-Up Diet Order/Nutrition [...] Based on DBW of 93.1 kg Kcals/day: 2545-4163 (25-30 kcals/kg) Protein g/day: 140-190 (1.5-2.0 g/kg) [...] Dietitian - Solid Organ Transplant Contact via [employer] Chat * Anita Crystal, PT - 10/29/2024 2:04 PM EDT Physical Therapy Initial Assessment Name: Blair Gilbert : 1985 Attending Physician: Semaj Mcnair III, MD Admission Diagnosis: Liver transplant recipient (CMS-HCC) [Z94.4] Date: 10/29/2024 Room: [place] [address] [address] Reviewed Pertinent hospital course: Yes Hospital Course [...] with functional mobility at: 4/10 or less Correction Goal : Pt will ambulate 250' mod [...] liver (CMS-HCC) Esophageal varices (CMS-HCC) Hepatorenal syndrome ([facility]-HCC) Hypertension Other hyperlipidemia 07/26/2024 Renal cell [...] Patient Active Problem List Diagnosis Decompensated cirrhosis ([facility]-HCC) Acute kidney injury superimposed on CKD ([facility]-HCC) Alcohol use disorder Metabolic encephalopathy Hypertension [...] transplant recipient (CMS-HCC) [Z94.4] Date: 10/29/2024 Room: [place] [address] [address] Reviewed Pertinent hospital course: Yes Hospital Course [...] Intervention(s): Ambulation/increased activity;Repositioned Therapist reported pain to: technical publications writer Oxygen Supplemental Oxygen Supplemental Oxygen: None [...] distance ambulation in prep for IADL task Hurl Shaker Goal : Pt will complete bathing assessment and transfer FCI goal to be met in: 2 weeks [...] Patient Active Problem List Diagnosis Decompensated cirrhosis ([facility]) Acute kidney injury superimposed on CKD ([facility]) Alcohol use disorder Metabolic encephalopathy Hypertension Other hyperlipidemia Thrombocytopenia ([facility]) Renal mass, left Abdominal pain Hypokalemia CKD (chronic kidney disease) stage 4, GFR 15-29 ml/min ([facility]) Metabolic acidosis with normal anion gap and bicarbonate losses GERD (gastroesophageal reflux disease) Hypothyroidism Itching Anemia BRBPR (bright red blood per rectum) SBP (spontaneous bacterial peritonitis) ([facility]) C Diff Diarrhea C. difficile diarrhea Neck pain with history of cervical spinal surgery * Caron Santos CNP - 10/29/2024 10:30 AM EDT Images from the original note were not included. Transplant Nephrology Progress Note Patient: Blair Gilbert [id number] SICU-28/USIC-28 Date of Admit: 10/25/2024. 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 Lauren Santos, SAMSON, GUM MIXER, BUSINESS PROCESS CONSULTANT- Transplant Nephrology [phone] Preferred contact: secure chat The HPI, ROS, [...] seen, examined, and discussed with DIRECTOR OF MARKETING ANALYTICS on 10/29/2024. reviewed the chart including the labs and imaging studies. My additional comments below. 39 y.o. 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 S/p SLK 10/25-10/26 Has great UOP 4.2L; 720 drain output Aaron Gonzalez MD, MEd, FASN * Kenyetta Avilesken - 10/29/2024 10:07 AM EDT Liver Transplant Surgery Progress Note Name: Blair Gilbert CSN: [id number] Date: 10/29/2024 10:08 AM OR Date: 10/25/2024 [...] LACTATE 0.4* 0.5 0.3* Imaging US Duplex Rnd-Qdt-Naibsgt Comp Result Date: 10/28/2024 IMPRESSION: ABDOMINAL ULTRASOUND [...] at 10/27/2024 10:38 AM EDT US Duplex Gok-Zuu-Pqtodvy Comp Result Date: 10/27/2024 IMPRESSION: RIGHT UPPER [...] 10/25/2024 - 10/27/2024. Plan: Liver transplant recipient ([facility]-HCC) [Z94.4] Neuro: - Multimodal pain control: [...] SQH, SCDs DISPO: floor KENYETTA DEVAN, MS4 [facility] General Surgery 10:08 AM 10/29/2024 Cosigned [...] Date 10/28/24 07 - 10/29/24 0659 10/29/24 0700 - 10/30/24 0659 Shift 1790-1915 1695-3143 3118-1528 24 Hour Total 5465-6538 1134-4930 9103-5690 24 Hour Total INTAKE P.O. 240 0 [...] IV infusion) 253.9 374.7 775.6 1404.2 Blood 9924 594 6862 Albumin 750 750 Volume (Transfuse RBC Transfusion Rate: Per dept routine) 310 310 Volume (Transfuse RBC Transfusion Rate: Per dept routine) 271 271 IV Piggyback 918.4 053 76 5580.4 Volume (mL) (micafungin (MYCAMINE) 50 mg in sodium chloride 0.9 % 100 mL Xpds7Moc IVPB) 99.9 99.9 Volume (mL) (albumin human [...] month of prophylaxis Lavell Kramer MD 10/29/[phone] * John Moreno MD - 10/29/2024 6:47 AM EDT SURGICAL ICU PROGRESS NOTE 10/29/2024 6:47 AM Name: lBair Gilbert CSN: [id number] HPI: Blair Gilbert is a 39 y.o. [...] hyperlipidemia 07/26/2024 Renal cell carcinoma (CMS-HCC) Thrombocytopenia ([facility]-HCC) Thyroid disease Past Surgical History: Procedure [...] to 4 times a day. DEXCOM G7 CLAMP JIG ASSEMBLER Misc Use reader as directed. DEXCOM G7 [...] and at bedtime. lancets (ACCU-CHEK SOFTCLIX LANCETS) [facility] Use to test blood sugar up to 4 times a day. methocarbamoL (ROBAXIN) 500 MG tablet Take 1 tablet (500 mg total) by mouth 3 times a day. naloxone (NARCAN) 4 mg/actuation [place] Apply 1 spray in one nostril [...] 37 37 35 PO2ART 245* 182* 92 PRM2NUH 22 21* 21* BEART -4.2* -4.8* -4.6* [...] at baseline or with provocation, shows no hflvv-zd-ntzo atrial level shunt. - Pulmonary arteries: Systolic [...] Home pantoprazole 40mg daily, continue Last BM: SUPERVISOR AUDIT CLERKS - suppository today Bowel regimen: Miralax today, [...] results for input(s): TEGANGLE , TEGKTIME , OFLKDQLU99 , TEGMAXAMPL , TEGRTIME , CBMZ in [...] in sodium chloride 0.9 % 100 mL Tcuf1Czp IVPB 50 mg Every 24 hours 10/27/2024 -- Admin Instructions: PROTECT FROM LIGHT FLUSH LINE w/NSS PRIOR TO ADMINISTRATION Use Cuto6Rse Adapter - Mix Thoroughly Before Administration Route: [...] BID Continuous Infusions: HYDROmorphone 6 mg/30 mL POLISHER BALANCE SCREWHEAD norepinephrine 4 mcg/min (10/27/24 2318) sodium chloride [...] 10/27/24699 - 10/28/2465810/28/24699 - 10/29/24 0659 Shift 5785-8027 8631-0441 7075-9129 24 Hour Total 4141-8827 3547-5183 0046-4862 24 Hour Total INTAKE P.O. 0 120 [...] in sodium chloride 0.9 % 100 mL Nhde0Eon IVPB) 100 100 Volume (mL) (albumin human 5%) 126 126 Volume (mL) (potassium chloride (KCl)/Sterile water 50 mL 20 mEq/50 mL IVPB 20 mEq) 100 100 Volume (mL) (AMPicillin 1 g in sodium chloride 0.9% 100 mL IVPB (Ucee6Oto)) 100.1 57 42.9 200 Volume (mL) (mycophenolate (CELLCEPT) 500 mg in dextrose 5% in water (D5W) 50 mL IVPB) 50 5.3 55.3 Shift Total(mL/kg) 2079.3(17) 1161(9.5) 787.3(6.4) 4027.6(32.9) OUTPUT Urine(mL/kg/hr) 2195(2.2) 1000(1) 900(0.9) 4095(1.4) 490 490 Urine 360 360 Output (mL) (IUC (Berkowitz) Triple-lumen (3-Way) 18 Fr.) 1835 9072 909 3184 490 490 Emesis/NG output 50 50 Drainage [...] month of prophylaxis Lavell Kramer MD 10/28/[phone] * Caron Santos CNP - 10/28/2024 9:00 AM EDT Images from the original note were not included. Transplant Nephrology Progress Note Patient: Blair Gilbert [id number] SICU-/USIC-28 Date of Admit: 10/25/2024. LOS: 3 days. 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 Lauren Santos, SAMSON, GUM MIXER, BUSINESS PROCESS CONSULTANT- Transplant Nephrology [phone] Preferred contact: secure chat The HPI, ROS, [...] seen, examined, and discussed with DIRECTOR OF MARKETING ANALYTICS on 10/28/2024. reviewed the chart including the labs and imaging studies. My additional comments below. 39 y.o. 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 S/p SLK 10/25-10/26 Has great UOP 4.2L Aaron Gonzalez MD, MEd, FASN * Shay Plata MD - 10/28/2024 7:41 AM EDT Liver Transplant Surgery Progress Note Name: Blair Gilbert CSN: [id number] Date: 10/28/2024 11:05 AM OR Date: 10/25/2024 - 10/27/2024 Subjective: 1 Day Post-Op Received one unit pRBCs overnight On low dose levo this morning Increasing tachycardia Reports worsening pain, on POLISHER BALANCE SCREWHEAD Tolerated sips of clears No nausea/vomiting, no [...] Oral BID Continuous: HYDROmorphone 6 mg/30 mL POLISHER BALANCE SCREWHEAD norepinephrine Stopped (10/28/24 0637) sodium chloride 0.9 [...] at 10/27/2024 10:38 AM EDT US Duplex Srk-Hep-Wcplycj Comp Result Date: 10/27/2024 IMPRESSION: RIGHT UPPER [...] 10/25/2024 - 10/27/2024. Plan: Liver transplant recipient ([facility]-HCC) [Z94.4] Neuro: - Multimodal pain control: dilaudid POLISHER BALANCE SCREWHEAD, tylenol, robaxin. PRN dilaudid for breakthrough CV: [...] SICU SHAY PLATA MD, MS4 [facility] Surgery 11:05 AM 10/28/2024 Cosigned by Lydia [...] 10/28/2024 6:17 AM Name: Blair Gilbert CSN: [id number] HPI: Blair Gilbert is a 39 y.o. [...] to 4 times a day. DEXCOM G7 CLAMP JIG ASSEMBLER Misc Use reader as directed. DEXCOM G7 [...] times a day. naloxone (NARCAN) 4 mg/actuation [place] Apply 1 spray in one nostril [...] Oral BID Continuous: HYDROmorphone 6 mg/30 mL POLISHER BALANCE SCREWHEAD insulin regular in 0.9 % sodium chloride [...] 37 37 35 PO2ART 245* 182* 92 QHP5OZS 22 21* 21* BEART -4.2* -4.8* -4.6* [...] at baseline or with provocation, shows no jmvsg-vn-dlhf atrial level shunt. - Pulmonary arteries: Systolic [...] while intubated,convert to PO today Last BM: SUPERVISOR AUDIT CLERKS Bowel regimen: Miralax today, hold senna til [...] ml IV Fluids: HYDROmorphone 6 mg/30 mL POLISHER BALANCE SCREWHEAD insulin regular in 0.9 % sodium chloride, Last Rate: 2.5 Units/hr (10/27/24 1900) norepinephrine, Last Rate: 4 mcg/min (10/27/24 2318) sodium chloride 0.45% (1/2 NS), Last Rate: Stopped (10/27/24 1301) sodium chloride 0.9 %, Last Rate: Stopped (10/27/24 0252) sodium chloride 0.9 %, Last Rate: 100 mL/hr (10/27/240) sodium chloride 0.9 % sodium chloride 0.9 [...] results for input(s): TEGANGLE , TEGKTIME , ZQHVCDZT88 , TEGMAXAMPL , TEGRTIME , CBMZ in [...] 127* -- 253* -- 210* -- -- ---- -- -- < > = values in [...] in sodium chloride 0.9% 100 mL IVPB (Mtwf0Pvt) (Completed) 1 g Every 6 hours scheduled 10/26/2024 10/28/2024 Admin Instructions: Dosage may need to be adjusted for renal dysfunction. Full dose is 1g IV q6h Use Nnnb8Oze Adapter - Mix Thoroughly Before Administration Notes to Pharmacy: On production recorder estimated creatinine clearance is 35.9 mL/min [...] in sodium chloride 0.9 % 100 mL Jsng6Ege IVPB 50 mg Every 24 hours 10/27/2024 -- Admin Instructions: PROTECT FROM LIGHT FLUSH LINE w/NSS PRIOR TO ADMINISTRATION Use Nksl8Fci Adapter - Mix Thoroughly Before Administration Route: [...] R IJ Mac Arterial Line? R radial [place] Urinary Catheter? Berkowitz - Reason: Adequate I/O [...] the Caprini Risk Score of 10 and [facility] transplant protocol, I recommend discharging on [...] pharmaceutical care of the patient as needed. Tani McbrideD, [place] Solid Organ Transplant Clinical Specialist Contact via [employer] Secure Chat Preferred O. [phone] * Chinedu Almeida, ANIMATION ARTIST - 10/27/2024 1:10 PM EDT Patient extubated [...] Yes MD Order No SBT No Yes [place] Coma Scale > 8 Yes Lab Results Component Value Date PHART 7.36 10/27/2024 PCO2 37 10/27/2024 PO2ART 245 (H) 10/27/2024 EBN2ILG 22 10/27/2024 BEART -4.2 (L) 10/27/2024 YHD9WNN 96.5 10/27/2024 X8YTXTPD 100 10/27/2024 Based on this SBT assessment [...] Surgery Progress Note Name: Blair Gilbert CSN: [id number] Date: 10/27/2024 11:40 AM OR Date: 10/25/2024 - 10/27/2024 Subjective: * Day of Surgery * Remains intubated in SICU Sedated but appropriately nods to questions No acute distress Objective: BP 100/48 Pulse 89 Temp 99 ??F (37.2 ??C) ([place]) Resp 9 Ht 6' 4 (1.93 m) [...] 0252) sodium chloride 0.9 % Stopped (10/27/24 025) [...] at 10/27/2024 10:38 AM EDT US Duplex Smq-Xzo-Vnpufgy Comp Result Date: 10/27/2024 IMPRESSION: RIGHT UPPER [...] 10/27/2024. Problem List[1] Plan: Liver transplant recipient ([facility]-HCC) [Z94.4] Neuro: - Propofol/fentanyl CV: - [...] DISPO: SICU KENYETTA HARTMAN, MS4 [facility] Surgery 11:40 AM 10/27/2024 [1] Patient Active Problem List Diagnosis Decompensated cirrhosis ([facility]-HCC) Acute kidney injury superimposed on CKD ([facility]-HCC) Alcohol use disorder Metabolic encephalopathy Hypertension Other hyperlipidemia Thrombocytopenia (CMS-HCC) Renal mass, left Abdominal pain Hypokalemia CKD (chronic kidney disease) stage 4, GFR 15-29 ml/min (CMS-HCC) Metabolic acidosis with normal anion gap and bicarbonate losses GERD (gastroesophageal reflux disease) Hypothyroidism Itching Anemia BRBPR (bright red blood per rectum) SBP (spontaneous bacterial peritonitis) ([facility]) C Diff [...] --- Diandra Mcnair III, MD Transplant Surgery (mcla) * Chinedu Almeida RRT - 10/27/2024 11:14 [...] NOTE 10/27/2024 7:16 AM Name: Blair Gilbert [facility]: [id number] HPI: Blair Gilbert is a 39 y.o. [...] times a day. naloxone (NARCAN) 4 mg/actuation [place] Apply 1 spray in one nostril [...] 0713) sodium chloride 0.9 % Stopped (10/27/24 025) sodium chloride 0.9 % Stopped (10/27/24251) sodium chloride 0.9 % Stopped (10/27/24 025) vasopressin 0.03 Units/min (10/27/24 0140) PRN Meds: [...] PCO2: 37 (10/27/24 0013) PO2: (!) 137 (10/27/243) HCO3: (!) 20 (10/27/2412) Base Excess: (!) -6.4 (10/27/2412) SaO2: 100 (10/27/24 0013) Recent Labs 10/26/24 0610 10/26/24 1048 10/27/24 0013 PHART 7.27* 7.37 7.32* PCO2 47* 36 37 PO2ART 127* 91 137* HSM3RTC 21* 22 20* BEART -5.4* -3.9* -6.4* [...] at baseline or with provocation, shows no tbngw-ef-ihvs atrial level shunt. - Pulmonary arteries: Systolic [...] IV pantoprazole while intubated, NPO Last BM: SUPERVISOR AUDIT CLERKS Bowel regimen: Senna/Miralax when able Nausea: Zofran [...] 10/27/2024 0715 Gross per 24 hour Intake 68002.82 ml Output 7060 ml Net 6224.82 ml [...] resolved RENAL/ Recent Labs 10/26/24 1048 10/26/24 16410/27/24 0013 BUN 61* 63* 64* CREATININE 2.78* [...] HEMATOLOGIC Labs: Recent Labs 10/26/24 1048 10/26/24 16410/27/24 0013 WBC 17.3* 10.0 5.0 HGB 12.8* 10.5* 8.5* HCT 37.2* 30.2* 23.9* MCV 88.3 87.7 88.5 PLT 109* 48* 35* No results for input(s): ANTIXALMWHEP in the last 72 hours. Recent Labs 10/26/24 10410/26/24164110/27/24 0013 INR 2.0* 1.7* 1.5* PROTIME 23.0* 20.3* 18.6* No results for input(s): TEGANGLE , TEGKTIME , IAROYCPQ73 , TEGMAXAMPL , TEGRTIME , CBMZ in [...] in sodium chloride 0.9% 100 mL IVPB (Zhna6Nzv) 1 g Every 6 hours scheduled Admin Instructions: Dosage may need to be adjusted for renal dysfunction. Full dose is 1g IV q6h Use Heau7Tjl Adapter - Mix Thoroughly Before Administration Notes to Pharmacy: On production recorder estimated creatinine clearance is 35.9 mL/min (A) (based on SCr of 3.87 mg/dL (H)). Route: Intravenous Linked Group 1: Placed in And Linked Group cefTRIAXone (ROCEPHIN) 2 g in sodium chloride 0.9 % 100 mL Pzqx6Evn Continuous - One Step Medications Only 10/27/2024 [...] Other (See Comments) Became Manic * Hillary Fenrandes PharmD - 10/27/2024 6:59 AM EDT Transplant [...] Solid Organ Transplant Clinical Specialist Contact via [employer] Preferred * Simeon Guzman RN - 10/27/2024 [...] 10/26/2024 0725 Gross per 24 hour Intake 48715.32 ml Output 2075 ml Net 09873.32 ml Consitutional: Intubated/sedated HEENT: Mucous membranes moist [...] Prophylaxis: SCDs, SQH CODE: Full Code [facility] Quint[facility] Best MD General Surgery Resident Cosigned [...] History and Physical Patient: Blair Gilbert CSN: [id number] History CC: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 naloxone (NARCAN) 4 mg/actuation [place] Apply 1 spray in one nostril [...] Resource Strain: Low Risk (07/09/2024) Received from [facility] Overall Financial Resource Strain (CARDIA) Difficulty [...] Physical Activity: Unknown (07/14/2024) Received from [facility] Exercise Vital Sign Days of Exercise per Week: Patient unable to answer Minutes of Exercise per Session: Not on file Stress: Patient Unable To Answer (07/14/2024) Received from [facility] of Occupational Health - Occupational Stress Questionnaire Feeling of Stress : Patient unable to answer Social Connections: Patient Unable To Answer (07/14/2024) Received from [facility] Social Connection and Isolation Panel [...] -- 5.4 ALBUMIN 3.2* 3.1* Invalid input(s): [facility] Other labs: Imaging Studies No results [...] admitted to SICU post-op. LEANDRA OG MD [facility] General Surgery Liver Transplant Pager: [phone] 8:24 PM 10/25/2024 Cosigned by Semaj [...] Name: Blair Gilbert Date: 1985 Billing #: [id number] Date of Procedure: 10/25/2024 Diagnosis: End Stage Renal Disease Procedure: 1. Donor Kidney Transplant 2. Back Bench Preparation Donor Kidney 3. Baseline Kidney transplant biopsy 4. Insertion of Indwelling Stent 5. Removal of Perihepatic packing Surgeons * Flaquito Ba MD Audit Clerk MD Shayan Findings: Low Hockey stick incision [...] donor was ABO O and UNOS ID [id number], Match Run [id number] (SLK). This donor was a Donor after [...] was then wanded with the lap detection certified physician's assistant. The incision was ex tented 2 [...] and closure. Flaquito Ba MD Transplant Surgeon contact center professional * Flaquito Ba MD - 10/27/2024 6:15 AM EDT TRANSPLANT KIDNEY with bile duct reconstruction Brief Op Note Blair Gilbert 10/27/2024 Pre-op Diagnosis: Acute kidney injury superimposed on CKD (CMS-HCC) [N17.9, N18.9] Post-op Diagnosis: same Procedure(s): TRANSPLANT KIDNEY Surgeon(s): MD Semaj Washington III, MD Anesthesia: General Endotracheal Staff: Single Stroke Preformer: Chinedu Quinn RN Scrub Person: ST Angela Fellow: Kemar Sahni MD 2nd Single Stroke Preformer: Marty Clark RN 3rd Single Stroke Preformer: Candis Mcdaniel RN FINDINGS Berkowitz 3 day Drains: Intraabdominal (perihepatic) UNOS ID [id number], Match Run [id number] Kid WIT 27 min Kid CIT 33 [...] (Berkowitz) Triple-lumen (3-Way) 18 Fr. (Active) Status [place] Drainage 10/26/241999 Collection Container Standard drainage bag [...] [place] III, MD Anesthesia: General Endotracheal Staff: Single Stroke Preformer: Chinedu Quinn RN Relief Single Stroke Preformer: Michela Amos RN Relief Scrub: Stephani Blake RN Scrub Person: ST Angela Fellow: Kemar Sahni MD 2nd Single Stroke Preformer: Marty Clark RN 3rd Single Stroke Preformer: Candis Mcdaniel RN Estimated Blood Loss: 300 [...] Bloody;Serosanguineous 10/26/241999 Drainage Output (mL) 450 mL 10/26/242199 Flushes (mL) 30 mL 10/26/241999 Number of [...] (Berkowitz) Triple-lumen (3-Way) 18 Fr. (Active) Status [place] Drainage 10/26/241999 Collection Container Standard drainage bag [...] day Drains: 2 Intraabdominal (perihepatic) UNOS ID [id number], Match Run [id number] Donor: young DCD NRP Kid WIT 27 min Kid CIT 33 hours Removal of Perihepatic packing- 5 Raytecs 2 laps There were no complications unless listed below. KEMAR SAHNI MD Date: 10/27/2024 Time: 7:35 AM Cosigned by Semaj Mcnari III, MD at 10/30/2024 10:46 AM EDT Associated attestation - Semaj Mcnair III, MD - 10/30/2024 10:46 AM EDT --- Diandra Mncair III, MD Transplant Surgery (cell) * Semaj Mcnair III, MD - 10/27/2024 12:00 AM EDT [facility] PATIENT NAME: BLAIR GILBERT DATE OF : 1985 CSN: [id number] PHYSICIAN: Semaj Mcnair III, MD ADMIT DATE: 10/25/2024 DICTATED BY: Semaj Mcnair III, MD SURGERY DATE: 10/27/2024 OPERATIVE REPORT SURGEON: Semaj Mcnair III, MD ORDER ENTRY TECHNICIAN SURGEON: Kemar Sahni MD. PREOPERATIVE DIAGNOSIS: Open [...] were made hemostatic with the argon beam supervisor die casting. We assessed the flows of the portal [...] a mucocele formation. We then performed a avxj-mk-mxud choledochocholedochostomy in an end to end fashion [...] small umbilicalhernia that was closed with a zxqwwn-ng-dfajc 0 PDS suture. At this point, we [...] operation. There were no immediate complications. SEMAJ MNCAIR III, MD RCQ/AQ JOB#: [id number] * Semja Mcnair III, MD - 10/26/2024 7:00 AM EDT Patient Name: Blair Gilbert Date: 1985 Billing #: [id number] Date of Procedure: 10/25/2024 - 10/26/2024 Diagnosis: Chronic Hepatic Failure without coma Procedure: 1. Orthotopic Liver Transplant 2. Back Bench Preparation Donor Liver 3. Temporary portocaval shunt 4. Perihepatic packing for control of hemorrhage 5. Placement of external choledochal stent 6. Temporary abdominal closure Attending surgeons: Semaj Mcnair III, MD Audit Clerk Surgeon(s): Sveta Judge MD Findings: Whole organ placed in piggyback fashion with suprahepatic cava of donor to common orifice of all three hepatic veins for IVC anastomosis. Donor main portal vein to recipient main portal vein. Donor common hepatic artery to recipient right hepatic artery. Temporary abdominal with perihepatic packingfor control of hemorrhage. Externalization of bile duct with 8 Vietnamese pediatric feeding tube. Portal Flow Modulation No [...] This donor was ABO O and UNOSID [id number], Match Run [id number]. This was a 42-year-old donation after circulatory [...] After completion of the outflow anastomosis, a Panamanian clamp was placed across the donor suprahepatic [...] artery flows were then measured with the [employer] device. The portal flow was 3.4 L/min [...] do a temporary abdominal closure. An 8 Vietnamese pediatric feeding tube was brought through the [...] Sveta Alves III, MD Anesthesia: General Staff: Single Stroke Preformer: Mak Maher RN; Marty Clark RN Scrub Person: ST Angela Resident: Thuy Leon MD factory process workers: Jose Daniel Arana, ANIMATION ARTIST Estimated Blood Loss: 19 L Specimens: recipient [...] Number of days: 5 Surgery Information: -UNOS#: [id number] -ABO: O to O -Recipient: SLK candidate [...] There were no complications unless listed below. SVTEA JUDGE MD Date: 10/26/2024 Time: 5:47 AM documented in this encounter Consult Notes * Elle Gomez RN - 10/31/2024 1:19 PM EDTAssociated Order(s): IP CONSULT TO EVALUATION ENGINEER [facility] Transplant Discharge Education Note Assessment: Received [...] Gomez, MSN, RN, NPD- Diabetes Education Office [phone] Schedule: M-F 8:00am-4:30pm * Ben Weiss RD - 10/27/2024 4:06 PM EDTAssociated Order(s): IP CONSULT TO NUTRITION SERVICES; IP CONSULT TO NUTRITION SERVICES TXP - Initial [facility] Medical Nutrition Therapy Reason(s) for Completion: [...] I/O: +23.2L net volume. Last BM Date: (SUPERVISOR AUDIT CLERKS). Admit Weight: 270 lb (122.5 kg) Current [...] liver (CMS-HCC) Esophageal varices (CMS-HCC) Hepatorenal syndrome ([facility]-HCC) Hypertension Other hyperlipidemia 07/26/2024 Renal cell carcinoma (CMS-HCC) Thrombocytopenia ([facility]-HCC) Thyroid disease Past Surgical History: Procedure [...] Based on DBW of 93.1 kg Kcals/day: 8839-2747 (25-30 kcals/kg) Protein g/day: 140-190 (1.5-2.0 g/kg) [...] Dietitian - Solid Organ Transplant Contact via [employer] * Lavell Kramer MD - 10/27/2024 11:09 AM EDTAssociated Order(s): INPATIENT CONSULT TO TRANSPLANT INFECTIOUS DISEASES Infectious Disease Consultation Patient: Blair Gilbert CSN: [id number] Assessment & Plan 39 y.o. M s/p [...] blood cx's if febrile Lavell Kramer MD [phone] Chief Complaint Long Qtc History of Present [...] Resource Strain: Low Risk (07/09/2024) Received from [facility] Overall Financial Resource Strain (CARDIA) Difficulty [...] Physical Activity: Unknown (07/14/2024) Received from [facility] Exercise Vital Sign Days of Exercise per Week: Patient unable to answer Minutes of Exercise per Session: Not on file Stress: Patient Unable To Answer (07/14/2024) Received from [facility] [employer] of Occupational Health - Occupational Stress Questionnaire Feeling of Stress : Patient unable to answer Social Connections: Patient Unable To Answer (07/14/2024) Received from [facility] Social Connection and Isolation Panel [...] MD 10/27/2024, 10:56 AM * Caron Santos, DIRECTOR OF MARKETING ANALYTICS - 10/27/2024 11:00 AM EDTAssociated Order(s): IP [...] TRANSPLANT; Surgeon: Semaj Mcnair III, MD; Location: [facility]; Service: Transplant; Laterality: N/A; History reviewed. No [...] to 4 times a day. DEXCOM G7 CLAMP JIG ASSEMBLER Misc Use reader as directed. DEXCOM G7 [...] times a day. 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 No indications for ANIMATION ARTIST. Good UOP - Noted KT US WNL [...] preliminary until attending attestation. Lauren Santos, SAMSON, GUM MIXER, BUSINESS PROCESS CONSULTANT- Transplant Nephrology [phone] Preferred contact: secure chat [1] Allergies Allergen [...] Gonzalez MD, MEd, FASN * Marcellus Hebert, PIN WORKER, PULMONARY FUNCTION TECHNOLOGIST - 10/27/2024 10:21 AM EDT HEALTH Care Management/Social Work Assessment Patient Information Patient Name: Blair Gilbert Hospital Day: 2 Inpatient/Observation: Inpatient Admit Date: 10/25/2024 Admission Diagnosis: Liver transplant recipient (CMS-HCC) [Z94.4] Attending provider: Semaj Mcnair III, MD PCP: Enedina Mcguire NP Home Pharmacy: [facility] [address] [place] [address] [place] [address] [facility] [address] [facility] [address] Issues related to obtaining medications: N/A Payor Information Medical Insurance Coverage: Payor: [employer] / Plan: [facility] GLOBAL / Product Type: *No [...] History: 12 weeks of CD Treatement at [facility] Do you need Substance Abuse Treatment [...] Was any abuse reported by patient?: No [place] Status & Connection to [facility] Services [place] Status & Connection to [facility] Services Are [...] spouse at their one story home in [place]. 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 Patient's LNOK:Spouse, Abdiaziz Gilbert, Patient has no current or past history of suicidal/homicidal ideation. Patient has a history of mental health diagnoses, PTSD and Generalized Anxiety Disorder. Patient is connected with TransplantPsychiatrist and prescribed Prozac. Patient has a history of alcohol use and has completed 12 weeksof CD Treatment at [facility]. Spouse explained that he will complete a 6 month virtual program post transplant but could not recall the name of the program. Patient has no current tobacco use. No previous need or recommendation for home health care services and no previous placements at intermediate facility and/or inpatient rehab program. Patient has [...] financial interest(s) are disclosed as appropriate. NUBIA Escalera LSW Phone Number: [phone] * John Moreno MD - 10/26/2024 3:41 AM EDT SURGICAL ICU CONSULT NOTE 10/26/2024 3:41 AM Name: Blair Gilbert CSN: [id number] HPI: Blair Gilbert is a 39 y.o. [...] at 9:00 PM naloxone (NARCAN) 4 mg/actuation [place] Apply 1 spray in one nostril [...] % 250 mL infusion 2.5 mcg/min (10/26/24 9342) insulin regular in 0.9 % sodium chloride norepinephrine 18 mcg/min (10/26/24 3623) vasopressin 0.04 Units/min (10/26/24 0244) PRN Meds: [...] input(s): PHART , PCO2 , PO2ART , NGO4USJ , BEART in the last 72 hours. [...] at baseline or with provocation, shows no fwxmx-yg-epvx atrial level shunt. - Pulmonary arteries: Systolic [...] IV pantoprazole while intubated, NPO Last BM: SUPERVISOR AUDIT CLERKS Bowel regimen: Senna/Miralax when able Nausea: Zofran PRN FLUID/ELECTROLYTES Recent Labs 10/25/242216 NA 137 K 2.1* CL 100 CO2 20* BUN 74* CREATININE 3.87* CALCIUM 9.3 PHOS 5.9* GLUCOSE 114* Intake/Output Summary (Last 24 hours) at 10/26/2024 0341 Last data filed at 10/26/2024 0326 Gross per 24 hour Intake 06789 ml Output 675 ml Net 50638 ml IV Fluids: EPINEPHrine (ADRENALIN) 10 mg in sodium chloride 0.9 % 250 mL infusion, Last Rate: 2.5 mcg/min (10/26/24 0339) insulin regular in 0.9 % sodium chloride norepinephrine, Last Rate: 18 mcg/min (10/26/24 3523) vasopressin, Last Rate: 0.04 Units/min (10/26/24 0244) [...] edema A/P: ADDY HEMATOLOGIC Labs: Recent Labs 10/25/24 22110/25/24 2340 10/26/24 0039 10/26/24 0140 WBC 6.2 -- -- -- HGB 8.3* 6.6* 7.9* 7.4* HCT 23.7* 19.0* 23.0* 22.0* MCV 98.9 -- -- -- PLT 56* -- -- -- No results for input(s): ANTIXALMWHEP in the last 72 hours. Recent Labs 10/25/242216 INR 1.8* PROTIME 21.7* No results for input(s): TEGANGLE , TEGKTIME , FGIVREOP03 , TEGMAXAMPL , TEGRTIME , CBMZ in [...] in sodium chloride 0.9% 100 mL IVPB (Zvws3Bwk) 2 g Every 6 hours 10/26/2024 -- Admin Instructions: Use Lojx6Arp Adapter - Mix Thoroughly Before Administration Notes to Pharmacy: On production recorder estimated creatinine clearance is 35.9 mL/min (A) (based on SCr of 3.87 mg/dL (H)). Route: Intravenous AMPicillin 2 g in sodium chloride 0.9% 100 mL IVPB (Xbkd8Yxv) 2 g Once 10/26/2024 -- Admin Instructions: Use Lnpz0Fxx Adapter - Mix Thoroughly Before Administration Notes to Pharmacy: On production recorder estimated creatinine clearance is 35.9 mL/min (A) (based on SCr of 3.87 mg/dL (H)). Route: Intravenous cefTRIAXone (ROCEPHIN) 2 g in sodium chloride 0.9 % 100 mL Mzzl3Aqf (Completed) 2 g Once 10/25/2024 10/26/2024 Admin Instructions: Use Ykcl8Tyk Adapter - Mix Thoroughly Before Administration Route: [...] R IJ Mac Arterial Line? R radial [place] Urinary Catheter? Berkowitz - Reason: Adequate I/O [...] 47 (H) 10/26/2024 PO2ART 127 (H) 10/26/2024 VRL5WEY 21 (L) 10/26/2024 BEART -5.4 (L) 10/26/2024 IDI0DCJ 94.6 (L) 10/26/2024 [id number] 98 10/26/2024 P:F ratio = 363 CARDIOVASCULAR: [...] Care Surgery, and Surgical Critical Care [facility] Academic Office [phone] For Transfers, call [phone] documented in this encounter Nursing Notes * [...] Progressing * Care Coordination - NUBIA Escalera, PULMONARY FUNCTION TECHNOLOGIST - 10/31/2024 11:34 AM EDT [facility] Case Management/Social Work Department Progress [...] disease. PCP: Enedina Mcguire NP Home Pharmacy: [facility] [address] [place], [facility] [address] [address] [facility] [address] [facility] [address] [facility] [place] - [address] [place] [place] [phone] Medical Insurance Coverage: Payor: [employer] / Plan: [employer] / Product Type: *No Product type* / Other Pertinent Information SW received report from Transplant medical team. SW completed chart review. Per report patient is not medically ready to discharge. Patient recommended for home PT/OT and 2x weekly labs. SW followed up on C referrals and submitted a few more HHC referrals. Update: SW made nurse educator aware that there were no accepting C agencies([facility], [facility], [facility]) and patient would need to outpatient for PT/OT and labs. Discharge Plan Anticipated discharge plan: Home with HHC vs Home with outpatient Anticipated discharge date: 11/01 CM/SW will continue to follow and remain available for discharge planning needs. NUBIA Escalera, RONALDO Cell [phone] * Plan of Care - Paulette Flannery [...] Citlaly Nova - 10/29/2024 1:53 PM EDT [facility] Case Management/Social Work Department Progress [...] disease. PCP: Enedina Mcguire NP Home Pharmacy: [address] [place] [id number] [address] [place] [address] [facility] Aleisha [place] [facility] [address] [facility] [place] - [address] [place] [id number] Medical Insurance Coverage: Payor: [employer] [...] SW submitted blanket HHC referral to [facility], [facility] [facility] [place], [facility] [facility], and [facility]. Awaiting responses. SW to followpending clearance home [...] available for discharge planning needs. Citlaly Nova, PIN WORKER, PULMONARY FUNCTION TECHNOLOGIST Inpatient Size Maker/Care Coordination [phone] * Plan of Care - Soco Yap [...] Escalera LSW - 10/28/2024 2:29 PM EDT [facility] Case Management/Social Work Department Progress Note Patient Information Patient Name: Blair Gilbert Hospital day: 3 Inpatient/Observation: Inpatient Level of Care: Transplant Admit date: 10/25/2024 Admission diagnosis: Liver transplant recipient (CMS-HCC) [Z94.4] PMH: has a past medical history of Alcoholic cirrhosis of liver (CMS-HCC), Esophageal varices (CMS-HCC), Hepatorenal syndrome (CMS-HCC), Hypertension, Other hyperlipidemia (07/26/2024), Renal cell carcinoma (CMS-HCC), Thrombocytopenia ([facility]-HCC), and Thyroid disease. PCP: Enedina Mcguire NP Home Pharmacy: [facility] [address] [place] [address] [facility] [address] [facility] [address] [facility] [place], [place] - [address] [facility] [address] [facility] [id number] Medical Insurance Coverage: [facility] / Plan: [employer] / Product Type: *No Product type* / Other Pertinent Information SW received report from Transplant medical team. SW completed chart review. Per report patient is not medically ready to discharge. PT/OT to assess once appropriate. Discharge Plan Anticipated discharge plan: Pending PT/OT Anticipated discharge date: 11/03 CM/MEREDITH will continue to follow and remain available for discharge planning needs. NUBIA Escalera, RONALDO Cell [phone] * Plan of Care - Elaine Carrillo [...] at all times. Outcome: Completed Problem: Non-violent, dim-iebi-curausahrrn restraints Description: Less restrictive alternative interventions will [...] protection of medical procedures, or protection of registered medical transcriptionist access. Outcome: Completed * Plan of Care [...] foods as appropriate. Outcome: Progressing Problem: Non-violent, lgs-kxoh-tqvctdggryd restraints Description: Less restrictive alternative interventions will [...] protection of medical procedures, or protection of registered medical transcriptionist access. Outcome: Progressing * Plan of Care - Shanel Shen RN - 10/27/2024 9:00 AM EDT Problem: Non-violent, vrl-duko-stnymsuzgwm restraints Description: Less restrictive alternative interventions will [...] - 10/26/2024 7:41 PM EDT Problem: Non-violent, dfj-fmsi-ziwmoxkoxvl restraints Description: Less restrictive alternative interventions will [...] protection of medical procedures, or protection of registered medical transcriptionist access. Outcome: Not Progressing Patient in bilateral [...] restraint flowsheet for further documentation. Problem: Non-violent, jdq-tpsm-pwioalupqsf restraints Description: Less restrictive alternative interventions will [...] protection of medical procedures, or protection of registered medical transcriptionist access. Outcome: Progressing * Plan of Alexa Ramires - 10/26/2024 9:55 AM EDT Problem: [...] Routine Acute kidney injury superimposed on CKD ([facility] [facility] [place] Release Upon Ordering for 1 Occurrences starting 10/27/2024 Fungus culture Microbiology Routine Acute kidney injury superimposed on CKD [place] [place] Release Upon Ordering for 1 Occurrences starting 10/27/2024 Routine Culture plus Stain Microbiology Routine Acute kidney injury superimposed on CKD ([facility] [place] Release Upon Ordering for 1 Occurrences starting 10/27/2024 Surgical Pathology Exam Pathology and Cytology Routine Acute kidney injury superimposed on CKD ([facility] [place] Release Upon Ordering for [...] Routine 10/31/2024 11:59 AM EDT US DUPLEX [id number] COMPLETE Routine 10/31/2024 10:19 AM EDT US [...] Routine 10/28/2024 5:31 PM EDT US DUPLEX [id number] COMPLETE STAT 10/28/2024 4:23 PM EDT US [...] Routine 10/27/2024 10:00 AM EDT US DUPLEX [id number] COMPLETE STAT 10/27/2024 9:51 AM EDT US [...] EDT Acute kidney injury superimposed on CKD ([facility] [place] RENAL ALTRNSPLJ IMPLTJ GRF W/UTILITY ARBORIST NEPHRECTOMY 10/27/2024 2:32 AM EDT Acute kidney injury superimposed on CKD ([facility] Special Needs [...] - 100 mg/dL 11/02/2024 5:45 PM EDT [facility] Blood 11/02/2024 5:44 PM EDT 11/02/2024 5:45 PM EDT us Seamj Mcnair III, MD POINT OF CARE TEST ORDERABLES Final Result [facility] [address] [facility]. [address] * (ABNORMAL) POC Glucose Monitoring Device (11/02/2024 3:34 PM EDT) POC Glucose Monitoring Device 208(H) 70 - 100 mg/dL 11/02/2024 3:35 PM EDT [facility] Blood 11/02/2024 3:34 PM EDT 11/02/2024 3:35 PM EDT us Semaj Mcnair III, MD POINT OF CARE TEST ORDERABLES Final Result Performing Organization Address City/[facility]/ZIP Co de Phone Number [facility] [address] [place] [facility], [place]. [address] * (ABNORMAL) POC Glucose Monitoring Device (11/02/2024 1:18 PM EDT) POC Glucose Monitoring Device 225(H) 70 - 100 mg/dL 11/02/2024 1:19 PM EDT [facility] Blood 11/02/2024 1:18 PM EDT 11/02/2024 1:19 PM EDT us Semaj Mcnair III, MD POINT OF CARE TEST ORDERABLES Final Result [facility] [address] [place] [facility], [place]. [address] * (ABNORMAL) POC Glucose Monitoring Device (11/02/2024 8:59 AM EDT) POC Glucose Monitoring Device 129(H) 70 - 100 mg/dL 11/02/2024 9:00 AM EDT [facility] Blood 11/02/2024 8:59 AM EDT 11/02/2024 9:00 AM EDT Semaj Mcnair III, MD POINT OF CARE TEST ORDERABLES Final Result Performing Organization Address [facility] de Phone Number [facility] [address] * Tacrolimus level (11/02/2024 5:53 AM EDT) Tacrolimus (LC-MS) 7.4 3.0 - 15.0 ng/mL 11/02/2024 2:23 PM EDT [facility] Comment:Performed via liquid chromatography tandem mass spectrometry. Detection limit: 1 ng/mL. Individual target concentrations may vary due to target organ and time after transplant. This test has been developed and its performance characteristics determined by [facility] which is certified under [...] ORDERABLES Denisse l Result Performing Organization Address City/[facility] Co de Phone Number [facility] [address] [place] [facility], [place]. [address] * (ABNORMAL) Renal Function Panel w/EGFR (11/02/2024 5:53 AM EDT) Sodium 140 133 - 146 mmol/L 11/02/2024 6:47 AM EDT [facility] Potassium 3.3(L) 3.5 - 5.3 mmol/L 11/02/2024 6:47 AM EDT [facility] Chloride 107 98 - 110 mmol/L 11/02/2024 6:47 AM EDT [facility] CO2 25 21 - 33 mmol/L 11/02/2024 6:47 AM EDT [facility] Anion Gap 8 3 - 16 mmol/L 11/02/2024 6:47 AM EDT [facility] BUN 31(H) 7 - 25 mg/dL 11/02/2024 6:47 AM EDT [facility] Creatinine 1.08 0.60 - 1.30 mg/dL 11/02/2024 6:47 AM EDT [facility] Glucose 150(H) 70 - 100 mg/dL 11/02/2024 6:47 AM EDT [facility] Calcium 7.8(L) 8.6 - 10.3 mg/dL 11/02/2024 6:47 AM EDT [facility] Phosphorus 2.0(L) 2.1 - 4.7 mg/dL 11/02/2024 6:47 AM EDT [facility] Albumin 3.2(L) 3.5 - 5.7 g/dL 11/02/2024 6:47 AM T [facility] Osmolality, Calculated 299 278 - 305 mOsm/kg 11/02/2024 6:47 AM EDT [facility] EGFR 88 11/02/2024 6:47 AM EDT [facility] Comment:As [...] EDT 11/02/2024 6:12 AM EDT Beata Horner [facility] LAB BLOOD ORDERABLES Denisse l Result [facility] [address] [facility], [place]. [address] * (ABNORMAL) Magnesium (11/02/2024 5:53 AM EDT) Magnesium 1.3(L) 1.5 - 2.5 mg/dL 11/02/2024 6:47 AM EDT [facility] Plasma 11/02/2024 5:53 AM EDT 11/02/2024 6:12 AM EDT Beata Horner [facility] LAB BLOOD ORDERABLES Denisse l Result Performing Organization Address [facility] Co de Phone Number [facility] [address] [facility]. [address] * (ABNORMAL) Hepatic Function Panel (11/02/2024 5:53 AM EDT) Total Bilirubin 1.6(H) 0.0 - 1.5 mg/dL 11/02/2024 6:47 AM EDT [facility] Bilirubin, Direct 0.81(H) 0.00 - 0.40 mg/dL 11/02/2024 6:47 AM EDT [facility] AST 30 13 - 39 U/L 11/02/2024 6:47 AM EDT [facility] ALT 66(H) 7 - 52 U/L 11/02/2024 6:47 AM EDT [facility] Alkaline Phosphatase 126(H) 36 - 125 U/L 11/02/2024 6:47 AM EDT [facility] Total Protein 4.6(L) 6.4 - 8.9 g/dL 11/02/2024 6:47 AM EDT [facility] Albumin 3.2(L) 3.5 - 5.7 g/dL 11/02/2024 6:47 AM EDT [facility] Bilirubin, Indirect 0.79 0.00 - 1.10 mg/dL 11/02/2024 6:47 AM EDT [facility] Plasma 11/02/2024 5:53 AM EDT 11/02/2024 6:12 AM EDT us Beata Horner [employer] LAB BLOOD ORDERABLES Denisse l Result [facility] [address] [place] [facility], [place]. [address] * (ABNORMAL) CBC (11/02/2024 5:53 AM EDT) WBC 5.8 3.8 - 10.8 10E3/uL 11/02/2024 6:21 AM EDT [facility] RBC 3.12(L) 4.20 - 5.80 10E6/uL 11/02/2024 6:21 AM EDT [facility] Hemoglobin 9.2(L) 13.2 - 17.1 g/dL 11/02/2024 6:21 AM EDT [facility] Hematocrit 27.5(L) 38.5 - 50.0 % 11/02/2024 6:21 AM EDT [facility] MCV 87.9 80.0 - 100.0 fL 11/02/2024 6:21 AM EDT [facility] MCH 29.5 27.0 - 33.0 pg 11/02/2024 6:21 AM EDT [facility] MCHC 33.5 32.0 - 36.0 g/dL 11/02/2024 6:21 AM EDT [facility] RDW 17.5(H) 11.0 - 15.0 % 11/02/2024 6:21 AM EDT [facility] Platelets 61(L) 140 - 400 10E3/uL 11/02/2024 6:21 AM EDT [facility] MPV 7.9 7.5 - 11.5 fL 11/02/2024 6:21 AM EDT [facility] Whole Blood 11/02/2024 5:53 AM EDT 11/02/2024 6:12 AM EDT Beata Horner [employer] LAB BLOOD ORDERABLES Denisse l Result [facility] [address] [place] [facility], [place]. [address] * (ABNORMAL) POC Glucose Monitoring Device (11/01/2024 9:26 PM EDT) POC Glucose Monitoring Device 199(H) 70 - 100 mg/dL 11/01/2024 9:27 PM EDT [facility] Blood 11/01/2024 9:26 PM EDT 11/01/2024 9:27 PM EDT Semaj Mcnair III, MD POINT OF CARE TEST ORDERABLES Final Result Performing Organization Address City/[facility]/ZIP Co de Phone Number [facility] [address] [facility]. [address] * (ABNORMAL) POC Glucose Monitoring Device (11/01/2024 5:04 PM EDT) POC Glucose Monitoring Device 255(H) 70 - 100 mg/dL 11/01/2024 5:05 PM EDT [facility] Blood 11/01/2024 5:04 PM EDT 11/01/2024 5:05 PM EDT Semaj Mcnair III, MD POINT OF CARE TEST ORDERABLES Final Result Performing Organization Address [facility]/ZIP Co de Phone Number [facility] [address] [facility]. [address] * (ABNORMAL) Renal Function Panel w/EGFR, STAT (11/01/2024 2:17 PM EDT) Sodium 139 133 - 146 mmol/L 11/01/2024 3:10 PM EDT [facility] Potassium 3.3(L) 3.5 - 5.3 mmol/L 11/01/2024 3:10 PM EDT [facility] Chloride 107 98 - 110 mmol/L 11/01/2024 3:10 PM EDT [facility] CO2 24 21 - 33 mmol/L 11/01/2024 3:10 PM EDT [facility] Anion Gap 8 3 - 16 mmol/L 11/01/2024 3:10 PM EDT [facility] BUN 35(H) 7 - 25 mg/dL 11/01/2024 3:10 PM EDT [facility] Creatinine 1.22 0.60 - 1.30 mg/dL 11/01/2024 3:10 PM EDT [facility] Glucose 203(H) 70 - 100 mg/dL 11/01/2024 3:10 PM EDT [facility] Calcium 8.3(L) 8.6 - 10.3 mg/dL 11/01/2024 3:10 PM EDT [facility] Phosphorus 2.2 2.1 - 4.7 mg/dL 11/01/2024 3:10 PM EDT [facility] Albumin 3.4(L) 3.5 - 5.7 g/dL 11/01/2024 3:10 PM EDT [facility] Osmolality, Calculated 302 278 - 305 mOsm/kg 11/01/2024 3:10 PM EDT [facility] EGFR 76 11/01/2024 3:10 PM EDT [facility] Comment:As [...] Marks MD LAB BLOOD ORDERABLES Final Result [facility] [address] [place] [address], [facility] * X-ray Portable Abdomen [...] 100 mg/dL 11/01/2024 12:23 PM EDT [facility] Blood 11/01/2024 12:2 2 PM EDT 11/01/2024 12:23 PM EDT Result [facility] Semaj Mcnair III, MD POINT OF CARE TEST ORDERABLES Final Result Performing Organization Address [facility] de Phone Number [facility] [address] [place] [address] * (ABNORMAL) POC Glucose Monitoring Device (11/01/2024 8:50 AM EDT) Pathologist [facility] POC Glucose Monitoring Device 175(H) 70 - 100 mg/dL 11/01/2024 8:51 AM EDT [facility] Blood 11/01/2024 8:50 AM EDT 11/01/2024 8:51 AM EDT Result [facility] Semaj Mcnair III, MD POINT OF CARE TEST ORDERABLES Final Result Performing Organization Address [facility] de Phone Number [facility] [address] [place] [address] * Tacrolimus level (11/01/2024 6:01 AM EDT) Pathologist [facility] Tacrolimus (LC-MS) 7.5 3.0 - 15.0 ng/mL 11/01/2024 12:14 PM EDT [facility] Comment:Performed via liquid chromatography tandem mass spectrometry. Detection limit: 1 ng/mL. Individual target concentrations may vary due to target organ and time after transplant. This test has been developed and its performance characteristics determined by [facility] which is certified under [...] AM EDT 11/01/2024 6:19 AM EDT Hillary Hensleysaramiller PharmD LAB BLOOD ORDERABLES Denisse l Result [facility] [address] [place] [address], [facility] * (ABNORMAL) Renal Function Panel w/EGFR (11/01/2024 6:01 AM EDT) Sodium 139 133 - 146 mmol/L 11/01/2024 6:57 AM EDT [facility] Potassium 3.3(L) 3.5 - 5.3 mmol/L 11/01/2024 6:57 AM EDT [facility] Chloride 108 98 - 110 mmol/L 11/01/2024 6:57 AM EDT [facility] CO2 22 21 - 33 mmol/L 11/01/2024 6:57 AM EDT [facility] Anion Gap 9 3 - 16 mmol/L 11/01/2024 6:57 AM EDT [facility] BUN 37(H) 7 - 25 mg/dL 11/01/2024 6:57 AM EDT [facility] Creatinine 1.30 0.60 - 1.30 mg/dL 11/01/2024 6:57 AM EDT [facility] Glucose 163(H) 70 - 100 mg/dL 11/01/2024 6:57 AM EDT [facility] Calcium 8.2(L) 8.6 - 10.3 mg/dL 11/01/2024 6:57 AM EDT [facility] Phosphorus 2.9 2.1 - 4.7 mg/dL 11/01/2024 6:57 AM EDT [facility] Albumin 3.1(L) 3.5 - 5.7 g/dL 11/01/2024 6:57 AM EDT [facility] Osmolality, Calculated 300 278 - 305 mOsm/kg 11/01/2024 6:57 AM EDT [facility] EGFR 71 11/01/2024 6:57 AM EDT [facility] Comment:As [...] 11/01/2024 6:20 AM EDT Beata Garlandbrook Horner [facility] LAB BLOOD ORDERABLES Denisse l Result Performing Organization Address City/[facility]/ZIP Co de Phone Number [facility] [address] [facility]. [address] * Magnesium (11/01/2024 6:01 AM EDT) Magnesium 1.5 1.5 - 2.5 mg/dL 11/01/2024 6:57 AM EDT [facility] Plasma 11/01/2024 6:01 AM EDT 11/01/2024 6:20 AM EDT [employer] Evens [facility] LAB BLOOD ORDERABLES Denisse l Result [facility] [address] [facility]. [address] * (ABNORMAL) Hepatic Function Panel (11/01/2024 6:01 AM EDT) Total Bilirubin 2.0(H) 0.0 - 1.5 mg/dL 11/01/2024 6:57 AM EDT [facility] Bilirubin, Direct 1.06(H) 0.00 - 0.40 mg/dL 11/01/2024 6:57 AM EDT [facility] AST 21 13 - 39 U/L 11/01/2024 6:57 AM EDT [facility] ALT 62(H) 7 - 52 U/L 11/01/2024 6:57 AM EDT [facility] Alkaline Phosphatase 114 36 - 125 U/L 11/01/2024 6:57 AM EDT [facility] Total Protein 4.6(L) 6.4 - 8.9 g/dL 11/01/2024 6:57 AM EDT [facility] Albumin 3.1(L) 3.5 - 5.7 g/dL 11/01/2024 6:57 AM EDT [facility] Bilirubin, Indirect 0.94 0.00 - 1.10 mg/dL 11/01/2024 6:57 AM EDT [facility] Plasma 11/01/2024 6:01 AM EDT 11/01/2024 6:20 AM EDT us Beata Horner [facility] LAB BLOOD ORDERABLES Denisse l Result [facility] [address] * (ABNORMAL) CBC (11/01/2024 6:01 AM EDT) WBC 5.9 3.8 - 10.8 10E3/uL 11/01/2024 6:29 AM EDT [facility] RBC 3.19(L) 4.20 - 5.80 10E6/uL 11/01/2024 6:29 AM EDT [facility] Hemoglobin 9.5(L) 13.2 - 17.1 g/dL 11/01/2024 6:29 AM EDT [facility] Hematocrit 27.8(L) 38.5 - 50.0 % 11/01/2024 6:29 AM EDT [facility] MCV 87.1 80.0 - 100.0 fL 11/01/2024 6:29 AM EDT [facility] MCH 29.9 27.0 - 33.0 pg 11/01/2024 6:29 AM EDT [facility] MCHC 34.3 32.0 - 36.0 g/dL 11/01/2024 6:29 AM EDT [facility] RDW 17.4(H) 11.0 - 15.0 % 11/01/2024 6:29 AM EDT [facility] Platelets 56(L) 140 - 400 10E3/uL 11/01/2024 6:29 AM EDT [facility] MPV 8.3 7.5 - 11.5 fL 11/01/2024 6:29 AM EDT [facility] Whole Blood 11/01/2024 6:01 AM EDT 11/01/2024 6:19 AM EDT Beata Horner [facility] LAB BLOOD ORDERABLES Denisse l Result [facility] [address] [facility] * (ABNORMAL) POC Glucose Monitoring Device (10/31/2024 9:15 PM EDT) POC Glucose Monitoring Device 171(H) 70 - 100 mg/dL 10/31/2024 9:15 PM EDT [facility] Blood 10/31/2024 9:15 PM EDT 10/31/2024 9:15 PM EDT Semaj Mcnair III, MD POINT OF CARE TEST ORDERABLES Final Result Performing Organization Address [facility] Co de Phone Number [facility] [address] [facility] * (ABNORMAL) POC Glucose Monitoring Device (10/31/2024 5:56 PM EDT) POC Glucose Monitoring Device 179(H) 70 - 100 mg/dL 10/31/2024 5:57 PM EDT [facility] Blood 10/31/2024 5:56 PM EDT 10/31/2024 5:57 PM EDT Semaj Mcnair III, MD POINT OF CARE TEST ORDERABLES Final Result Performing Organization Address City/[facility]/ZIP Co de Phone Number [facility] [address] [facility]. [address] * CT Abdomen and Pelvis WO [...] Adrenal gland: No focal nodule seen. Kidneys: [place] kidneys noted with nonobstructing calcifications on the right. Findings of postsurgical changes in the left [place] kidney. Mild right hydronephrosis without an [...] Adrenal gland: No focal nodule seen. Kidneys: [place] kidneys noted with nonobstructing calcifications on theright. Findings of postsurgical changes in the left [place] kidney. Mildright hydronephrosis without an obstructive [...] QT: 400 ms QTc: 456 ms P [place]: 49 degrees R [place]: 3 degrees T [place]: 14 degrees Diagnosis Line: NORMAL SINUS RHYTHM ^ NORMAL ECG ^ ^ Confirmed by MD JEANETTE, TORI ([id number]) on 11/02/2024 6:56:52 AM Priti Geiger DIRECTOR OF MARKETING [employer]NALYTICS ECG ORDERABLES Final Result [facility] * (ABNORMAL) Urinalysis w/Rfl to Microscopic (10/31/2024 1:18 PM EDT) Color, UA Straw Yellow,Straw 10/31/2024 1:46 PM EDT [facility] Clarity, UA Clear Clear 10/31/2024 1:46 PM EDT [facility] Specific [place], UA 1.013 1.005 - 1.035 10/31/2024 1:46 PM EDT [facility] pH, UA 6.5 5.0 - 8.0 10/31/2024 1:46 PM EDT [facility] Protein, UA Negative Negative mg/dL 10/31/2024 1:46 PM EDT [facility] Glucose, UA Negative Negative mg/dL 10/31/2024 1:46 PM EDT [facility] Ketones, UA Negative Negative mg/dL 10/31/2024 1:46 PM EDT [facility] Bilirubin, UA Negative Negative 10/31/2024 1:46 PM EDT [facility] Blood, UA Large(A) Negative 10/31/2024 1:46 PM EDT [facility] Nitrite, UA Negative Negative 10/31/2024 1:46 PM EDT [facility] Urobilinogen, UA <2.0 0.2 - 1.9 mg/dL 10/31/2024 1:46 PM EDT [facility] Leukocyte Esterase, UA Negative Negative 10/31/2024 1:46 PM EDT [facility] RBC, UA >100(H) 0 - 3 /HPF 10/31/2024 1:46 PM EDT [facility] WBC, UA 3 0 - 5 /HPF 10/31/2024 1:46 PM EDT [facility] Hyaline Casts, UA 3(H) 0 - 2 /LPF 10/31/2024 1:46 PM EDT [facility] Urine 10/31/2024 1:18 PM EDT 10/31/2024 1:32 PM EDT Priti Geiger CNP URINE ORDERABLES Final Result Performing Organization Address [facility] Co de Phone Number [facility] [address] * (ABNORMAL) Post Kidney Transplant Urine Culture (10/31/2024 1:18 PM EDT) Culture Result Enterococcus faecium, Vancomycin Resistant(A) [facility] Comment: 1,000- <10,000 cfu/mL Identified [...] ORDERA BLES Final Result Performing Organization Address City/[facility]/ZIP Co de Phone Number [facility] [address] * (ABNORMAL) POC Glucose Monitoring Device (10/31/2024 11:59 AM EDT) POC Glucose Monitoring Device 130(H) 70 - 100 mg/dL 10/31/2024 12:21 PM EDT [facility] Blood 10/31/2024 11:5 9 AM EDT 10/31/2024 12:21 PM EDT Semaj Mcnair III, MD POINT OF CARE TEST ORDERABLES Final Result [facility] [address] [place] [address], [facility] * US Abdomen Limited (10/31/2024 10:19 [...] EXAM: US ABDOMEN LIMITED EXAM: US DUPLEX [id number] COMPLETE INDICATION: Post-op liver transplant COMPARISON: None [...] visualized secondary to poor acoustic windows. The [place] right kidney measures 11.6 cm in [...] EXAM: US ABDOMEN LIMITED EXAM: US DUPLEX [id number] COMPLETE INDICATION: Post-op liver transplant COMPARISON: None [...] well visualized secondary to poor acousticwindows. The [place] right kidney measures 11.6 cm in [...] 10/31/2024 10:35 AM EDT us [facility]ata Hor[facility] US ORDERABLES Final R esult * US [...] 10/31/2024 10:29 AM EDT us Beata Horner [facility] US ORDERABLES Final R esult * US Duplex [id number] Comp (10/31/2024 10:19 AM EDT) Anatomical Region [...] EXAM: US ABDOMEN LIMITED EXAM: US DUPLEX [id number] COMPLETE INDICATION: Post-op liver transplant COMPARISON: None [...] visualized secondary to poor acoustic windows. The [place] right kidney measures 11.6 cm in [...] EXAM: US ABDOMEN LIMITED EXAM: US DUPLEX [id number] COMPLETE INDICATION: Post-op liver transplant COMPARISON: None [...] well visualized secondary to poor acousticwindows. The [place] right kidney measures 11.6 cm in [...] at 10/31/2024 10:35 AM EDT Beata Horner [facility] US ORDERABLES Final R esult * ECG 12-lead (MUSE) (10/31/2024 8:57 AM EDT) 10/31/2024 8:57 AM EDT Narrative MUSE - 11/01/2024 9:21 AM EDT Ventricular Rate: 83 BPM Atrial Rate: 83 BPM P-R Interval: 168 ms QRS Duration: 102 ms QT: 392 ms QTc: 460 ms P [place]: 64 degrees R [place]: -18 degrees T [place]: 7 degrees Diagnosis Line: NORMAL SINUS RHYTHM ^ NORMAL ECG ^ ^ Confirmed by MD JOE, OTIS ([id number]) on 11/01/2024 9:21:13 AM Priti Geiger DIRECTOR [employer] MARKETING [employer]NALYT[employer] ECG ORDERABLES Final Result Performing Organization Address [facility]/ZIP Co de Phone Number [facility] * (ABNORMAL) POC Glucose Monitoring Device (10/31/2024 8:44 AM EDT) POC Glucose Monitoring Device 145(H) 70 - 100 mg/dL 10/31/2024 8:45 AM EDT [facility] Blood 10/31/2024 8:44 AM EDT 10/31/2024 8:44 AM EDT Semaj Mcnair III, MD POINT OF CARE TEST ORDERABLES Final Result Performing Organization Address [facility] de Phone Number [facility] [address] [facility] * Tacrolimus level (10/31/2024 6:40 AM EDT) Tacrolimus (LC-MS) 8.4 3.0 - 15.0 ng/mL 10/31/2024 10:05 AM EDT [facility] Comment:Performed via liquid chromatography tandem mass spectrometry. Detection limit: 1 ng/mL. Individual target concentrations may vary due to target organ and time after transplant. This test has been developed and its performance characteristics determined by [facility] which is certified under [...] Organization Address [facility] Co de Phone Number [facility] [address] [facility] * (ABNORMAL) Renal Function Panel w/EGFR (10/31/2024 6:40 AM EDT) Sodium 141 133 - 146 mmol/L 10/31/2024 8:09 AM EDT [facility] Potassium 3.5 3.5 - 5.3 mmol/L 10/31/2024 8:09 AM EDT [facility] Chloride 111(H) 98 - 110 mmol/L 10/31/2024 8:09 AM EDT [facility] CO2 20(L) 21 - 33 mmol/L 10/31/2024 8:09 AM EDT [facility] Anion Gap 10 3 - 16 mmol/L 10/31/2024 8:09 AM EDT [facility] BUN 54(H) 7 - 25 mg/dL 10/31/2024 8:09 AM [facility] Creatinine 1.75(H) 0.60 - 1.30 mg/dL 10/31/2024 8:09 AM [facility] Glucose 136(H) 70 - 100 mg/dL 10/31/2024 8:09 AM EDT [facility] Calcium 8.7 8.6 - 10.3 mg/dL 10/31/2024 8:09 AM EDT [facility] Phosphorus 4.1 2.1 - 4.7 mg/dL 10/31/2024 8:09 AM [facility] Albumin 3.2(L) 3.5 - 5.7 g/dL 10/31/2024 8:09 AM [facility] Osmolality, Calculated 309(H) 278 - 305 mOsm/kg 10/31/2024 8:09 AM EDT [facility] EGFR 50 10/31/2024 8:09 AM [facility] Comment:As of 2021, the [...] M, Olivia [place], Emerita [place], Madelyn [place], [employer] [place], et al. A Unifying Approach for GFR Estimation: Recommendations of the NKF-ASN Task Force on Reassessing the inclusion of Race in Diagnosing Kidney Disease. Am J Kidney Dis. 2020. Plasma 10/31/2024 6:40 AM EDT 10/31/2024 7:35 AM EDT Beata Bessn DIRECTOR OF [employer]ET[employer] LAB BLOOD ORDERABLES Denisse l Result Performing Organization Address City/[facility]/ZIP Co de Phone Number [facility] [address] [facility]. [address] * Magnesium (10/31/2024 6:40 AM EDT) Magnesium 1.8 1.5 - 2.5 mg/dL 10/31/2024 8:09 AM EDT [facility] Plasma 10/31/2024 6:40 AM EDT 10/31/2024 7:35 AM EDT Beata Garland Evens DIRECTOR OF MARKETING [employer] LAB BLOOD ORDERABLES Denisse l Result Performing Organization Address [facility] Co de Phone Number [facility] [address] [facility] * (ABNORMAL) Hepatic Function Panel (10/31/2024 6:40 AM EDT) Total Bilirubin 2.7(H) 0.0 - 1.5 mg/dL 10/31/2024 8:09 AM EDT [facility] Bilirubin, Direct 1.57(H) 0.00 - 0.40 mg/dL 10/31/2024 8:09 AM EDT [facility] AST 26 13 - 39 U/L 10/31/2024 8:09 AM EDT [facility] ALT 68(H) 7 - 52 U/L 10/31/2024 8:09 AM EDT [facility] Alkaline Phosphatase 112 36 - 125 U/L 10/31/2024 8:09 AM EDT [facility] Total Protein 4.7(L) 6.4 - 8.9 g/dL 10/31/2024 8:09 AM EDT [facility] Albumin 3.2(L) 3.5 - 5.7 g/dL 10/31/2024 8:09 AM EDT [facility] Bilirubin, Indirect 1.13(H) 0.00 - 1.10 mg/dL 10/31/2024 8:09 AM EDT [facility] Plasma 10/31/2024 6:40 AM EDT 10/31/2024 7:35 AM EDT Beata Horner [facility] LAB BLOOD ORDERABLES Denisse l Result [facility] [address] [place] [address], [facility] * (ABNORMAL) CBC (10/31/2024 6:40 AM EDT) WBC 6.0 3.8 - 10.8 10E3/uL 10/31/2024 8:05 AM EDT [facility] RBC 3.14(L) 4.20 - 5.80 10E6/uL 10/31/2024 8:05 AM EDT [facility] Hemoglobin 9.6(L) 13.2 - 17.1 g/dL 10/31/2024 8:05 AM EDT [facility] Hematocrit 27.5(L) 38.5 - 50.0 % 10/31/2024 8:05 AM EDT [facility] MCV 87.6 80.0 - 100.0 fL 10/31/2024 8:05 AM EDT [facility] MCH 30.7 27.0 - 33.0 pg 10/31/2024 8:05 AM EDT [facility] MCHC 35.0 32.0 - 36.0 g/dL 10/31/2024 8:05 AM EDT [facility] RDW 17.9(H) 11.0 - 15.0 % 10/31/2024 8:05 AM EDT [facility] Platelets 44(L) 140 - 400 10E3/uL 10/31/2024 8:05 AM EDT [facility] Comment: CNV Specimen checked for clots. None detected. MPV 8.9 7.5 - 11.5 fL 10/31/2024 8:05 AM EDT [facility] Whole Blood 10/31/2024 6:40 AM EDT 10/31/2024 7:34 AM EDT Beata Horner [facility] LAB BLOOD ORDERABLES Denisse l Result [facility] [address] [facility] * (ABNORMAL) POC Glucose Monitoring Device (10/30/2024 9:01 PM EDT) POC Glucose Monitoring Device 144(H) 70 - 100 mg/dL 10/30/2024 9:02 PM EDT [facility] Blood 10/30/2024 9:01 PM EDT 10/30/2024 9:01 PM EDT Semaj Mcnair III, MD POINT OF CARE TEST ORDERABLES Final Result Performing Organization Address [facility]/ZIP Co de Phone Number [facility] [address] [facility]. [address] * (ABNORMAL) POC Glucose Monitoring Device (10/30/2024 5:37 PM EDT) POC Glucose Monitoring Device 124(H) 70 - 100 mg/dL 10/30/2024 5:47 PM EDT [facility] Blood 10/30/2024 5:37 PM EDT 10/30/2024 5:47 PM EDT Semaj Mcnair III, MD POINT OF CARE TEST ORDERABLES Final Result Performing Organization Address City/[facility]/ZIP Co de Phone Number [facility] [address] [facility]. [address] * (ABNORMAL) POC Glucose Monitoring Device (10/30/2024 7:26 AM EDT) POC Glucose Monitoring Device 150(H) 70 - 100 mg/dL 10/30/2024 7:27 AM EDT [facility] Blood 10/30/2024 7:26 AM EDT 10/30/2024 7:27 AM EDT Semaj Mcnair III, MD POINT OF CARE TEST ORDERABLES Final Result Performing Organization Address [facility] de Phone Number [facility] [id number] * Tacrolimus level (10/30/2024 7:13 AM EDT) [facility] Tacrolimus (LC-MS) 9.5 3.0 - 15.0 ng/mL 10/30/2024 2:53 PM EDT [facility] Comment:Performed via liquid chromatography tandem mass spectrometry. Detection limit: 1 ng/mL. Individual target concentrations may vary due to target organ and time after transplant. This test has been developed and its performance characteristics determined by [facility] which is certified under the Clinical [...] EDT 10/30/2024 7:26 AM EDT Priti Geiger [facility] LAB BLOOD ORDERABLES Final Re sult Performing Organization Address [facility] Co de Phone Number [facility] [address] [facility]. [address] * ECG 12-lead (MUSE) (10/30/2024 6:51 AM EDT) 10/30/2024 6:51 AM EDT Narrative MUSE - 11/01/2024 9:21 AM EDT Ventricular Rate: 92 BPM Atrial Rate: 92 BPM P-R Interval: 174 ms QRS Duration: 96 ms QT: 376 ms QTc: 464 ms P [place]: 54 degrees R [place]: -24 degrees T [place]: 11 degrees Diagnosis Line: NORMAL SINUS RHYTHM ^ NORMAL ECG ^ ^ Confirmed by MD JOE, OTIS ([id number]) on 11/01/2024 9:21:09 AM Priti Geiger CNP ECG ORDERABLES Final Result MUSE * (ABNORMAL) Renal Function Panel w/EGFR (10/30/2024 5:41 AM EDT) Sodium 140 133 - 146 mmol/L 10/30/2024 6:18 AM EDT [facility] Potassium 3.8 3.5 - 5.3 mmol/L 10/30/2024 6:18 AM EDT [facility] Chloride 111(H) 98 - 110 mmol/L 10/30/2024 6:18 AM EDT [facility] CO2 17(L) 21 - 33 mmol/L 10/30/2024 6:18 AM EDT [facility] Anion Gap 12 3 - 16 mmol/L 10/30/2024 6:18 AM EDT [facility] BUN 62(H) 7 - 25 mg/dL 10/30/2024 6:18 AM EDT [facility] Creatinine 1.96(H) 0.60 - 1.30 mg/dL 10/30/2024 6:18 AM EDT [facility] Glucose 116(H) 70 - 100 mg/dL 10/30/2024 6:18 AM EDT [facility] Calcium 9.0 8.6 - 10.3 mg/dL 10/30/2024 6:18 AM EDT [facility] Phosphorus 4.6 2.1 - 4.7 mg/dL 10/30/2024 6:18 AM EDT [facility] Albumin 3.2(L) 3.5 - 5.7 g/dL 10/30/2024 6:18 AM EDT [facility] Osmolality, Calculated 309(H) 278 - 305 mOsm/kg 10/30/2024 6:18 AM EDT [facility] EGFR 43 10/30/2024 6:18 AM EDT [facility] Comment:As [...] 10/30/2024 5:47 AM EDT Beata Garland Evens [facility] LAB BLOOD ORDERABLES Denisse l Result Performing Organization Address City/[facility]/ZIP Co de Phone Number [facility] [address] [facility] * Magnesium (10/30/2024 5:41 AM EDT) Pathologist [facility] Magnesium 2.2 1.5 - 2.5 mg/dL 10/30/2024 6:18 AM EDT [facility] Plasma 10/30/2024 5:41 AM EDT 10/30/2024 5:[address] [facility] LAB BLOOD ORDERABLES Denisse l Result Performing Organization Address City/[facility]/ZIP Co de Phone Number [facility] [address] [facility] * (ABNORMAL) Hepatic Function Panel (10/30/2024 5:41 AM EDT) Total Bilirubin 3.6(H) 0.0 - 1.5 mg/dL 10/30/2024 6:18 AM EDT [facility] Bilirubin, Direct 1.95(H) 0.00 - 0.40 mg/dL 10/30/2024 6:18 AM EDT [facility] AST 33 13 - 39 U/L 10/30/2024 6:18 AM EDT [facility] ALT 71(H) 7 - 52 U/L 10/30/2024 6:18 AM EDT [facility] Alkaline Phosphatase 80 36 - 125 U/L 10/30/2024 6:18 AM EDT [facility] Total Protein 4.8(L) 6.4 - 8.9 g/dL 10/30/2024 6:18 AM EDT [facility] Albumin 3.2(L) 3.5 - 5.7 g/dL 10/30/2024 6:18 AM EDT [facility] Bilirubin, Indirect 1.65(H) 0.00 - 1.10 mg/dL 10/30/2024 6:18 AM EDT [facility] Plasma 10/30/2024 5:41 AM EDT 10/30/2024 5:47 AM EDT us Beata Horner [employer] LAB BLOOD ORDERABLES Denisse l Result [facility] [address] [id number] * (ABNORMAL) CBC (10/30/2024 5:41 AM EDT) WBC 8.1 3.8 - 10.8 10E3/uL 10/30/2024 8:06 AM EDT [facility] RBC 3.29(L) 4.20 - 5.80 10E6/uL 10/30/2024 8:06 AM EDT [facility] Hemoglobin 10.1(L) 13.2 - 17.1 g/dL 10/30/2024 8:06 AM EDT [facility] Hematocrit 28.8(L) 38.5 - 50.0 % 10/30/2024 8:06 AM EDT [facility] MCV 87.6 80.0 - 100.0 fL 10/30/2024 8:06 AM EDT [facility] MCH 30.6 27.0 - 33.0 pg 10/30/2024 8:06 AM EDT [facility] MCHC 34.9 32.0 - 36.0 g/dL 10/30/2024 8:06 AM EDT [facility] RDW 18.1(H) 11.0 - 15.0 % 10/30/2024 8:06 AM EDT [facility] Platelets 44(L) 140 - 400 10E3/uL 10/30/2024 8:06 AM EDT [facility] Comment: CNV Specimen checked for clots. None detected. MPV 8.3 7.5 - 11.5 fL 10/30/2024 8:06 AM EDT [facility] Whole Blood 10/30/2024 5:41 AM EDT 10/30/2024 5:50 AM EDT Beata Horner [facility] LAB BLOOD ORDERABLES Denisse l Result [facility] [address] [facility] * (ABNORMAL) POC Glucose Monitoring Device (10/29/2024 10:18 PM EDT) POC Glucose Monitoring Device 140(H) 70 - 100 mg/dL 10/29/2024 10:18 PM EDT [facility] Blood 10/29/2024 10:1 8 PM EDT 10/29/2024 10:18 PM EDT Semaj Mcnair III, MD POINT OF CARE TEST ORDERABLES Final Result Performing Organization Address City/[facility]/ZIP Co de Phone Number [facility] [address] [facility]. [address] * (ABNORMAL) POC Glucose Monitoring Device (10/29/2024 6:42 PM EDT) POC Glucose Monitoring Device 152(H) 70 - 100 mg/dL 10/29/2024 6:43 PM EDT [facility] Blood 10/29/2024 6:42 PM EDT 10/29/2024 6:43 PM EDT Semaj Mcnair III, MD POINT OF CARE TEST ORDERABLES Final Result [facility] [address] [facility] * (ABNORMAL) POC Glucose Monitoring Device (10/29/2024 11:35 AM EDT) POC Glucose Monitoring Device 130(H) 70 - 100 mg/dL 10/29/2024 11:36 AM EDT [facility] Blood 10/29/2024 11:3 5 AM EDT 10/29/2024 11:36 AM EDT Semaj Mcnair III, MD POINT OF CARE TEST ORDERABLES Final Result [facility] [address]. [address] * ECG 12 lead (MUSE) (10/29/2024 9:34 AM EDT) 10/29/2024 9:34 AM EDT Narrative MUSE - 10/29/2024 10:34 PM EDT Ventricular Rate: 97 BPM Atrial Rate: 97 BPM P-R Interval: 186 ms QRS Duration: 104 ms QT: 382 ms QTc: 485 ms P [place]: 54 degrees R [place]: -21 degrees T [place]: 1 degrees Diagnosis Line: NORMAL SINUS RHYTHM ^ NORMAL ECG ^ Confirmed by JORGE MACIAS ([id number]) on 10/29/2024 10:34:50 PM Afshan Bear MD ECG ORDERABLES Final Result Performing Organization Address City/[facility]/ZIP Co de Phone Number MUSE * Tacrolimus level (10/29/2024 8:08 AM EDT) Pathologist [facility] Tacrolimus (LC-MS) 10.4 3.0 - 15.0 ng/mL 10/29/2024 2:07 PM EDT [facility] Comment:Performed via liquid chromatography tandem mass spectrometry. Detection limit: 1 ng/mL. Individual target concentrations may vary due to target organ and time after transplant. This test has been developed and its performance characteristics determined by [facility] which is certified under [...] 8:08 AM EDT 10/29/2024 8:21 AM EDT Kerisusan Abi [facility] LAB BLOOD ORDERABLES Final Re sult Performing Organization Address City/[facility]/ZIP Co de Phone Number [facility] [address] * Prepare RBC, leukoreduced, 1 Units (10/29/2024 6:16 AM EDT) Product Code I7374A05 [facility] Unit Number [id number] [facility] Dispense Status Presumed Transfused_PT [facility] Blood Expiration Date [id number] [facility] Coding System [id number] [facility] Blood Bank Product Shay Plata MD BLOOD BANK PRODUCT O RDERABLES Final Result Performing Organization Address [facility] Co de Phone Number [facility] * Prepare RBC, leukoreduced, 1 Units (10/29/2024 6:15 AM EDT) Product Code D4330J21 [facility] Unit Number [id number] [facility] Dispense Status Presumed Transfused_PT [facility] Blood Expiration Date [id number] HCLL Coding System [id number] [facility] Blood Bank Product Carlos Marks MD BLOOD BANK PRODUCT ORDERABL ES Final Result Performing Organization Address [facility] Co de Phone Number [facility] * Prepare RBC, leukoreduced, 1 Units (10/29/2024 6:15 AM EDT) Product Code J5988L07 [facility] Unit Number [id number] [facility] Dispense Status Presumed Transfused_PT [facility] Blood Expiration Date [id number] HCLL Coding System [id number] [facility] Blood Bank Product us John Moreno MD BLOOD BANK PRODUCT ORDERABLE S Final Result [facility] * (ABNORMAL) Renal Function Panel w/EGFR (10/29/2024 5:07 AM EDT) Sodium 144 133 - 146 mmol/L 10/29/2024 5:49 AM EDT [facility] Potassium 3.8 3.5 - 5.3 mmol/L 10/29/2024 5:49 AM EDT [facility] Chloride 113(H) 98 - 110 mmol/L 10/29/2024 5:49 AM EDT [facility] CO2 17(L) 21 - 33 mmol/L 10/29/2024 5:49 AM EDT [facility] Anion Gap 14 3 - 16 mmol/L 10/29/2024 5:49 AM EDT [facility] BUN 57(H) 7 - 25 mg/dL 10/29/2024 5:49 AM EDT [facility] Creatinine 1.93(H) 0.60 - 1.30 mg/dL 10/29/2024 5:49 AM EDT [facility] Glucose 110(H) 70 - 100 mg/dL 10/29/2024 5:49 AM EDT [facility] Calcium 9.3 8.6 - 10.3 mg/dL 10/29/2024 5:49 AM EDT [facility] Phosphorus 4.8(H) 2.1 - 4.7 mg/dL 10/29/2024 5:49 AM EDT [facility] Albumin 3.5 3.5 - 5.7 g/dL 10/29/2024 5:49 AM EDT [facility] Osmolality, Calculated 314(H) 278 - 305 mOsm/kg 10/29/2024 5:49 AM EDT [facility] EGFR 44 10/29/2024 5:49 AM EDT [facility] Comment:As [...] 10/29/2024 5:13 AM EDT Beata Dada Horner [facility] LAB BLOOD ORDERABLES Denisse l Result Performing Organization Address City/[facility]/ZIP Co de Phone Number [facility] [address] [facility] * Magnesium (10/29/2024 5:07 AM EDT) Magnesium 2.1 1.5 - 2.5 mg/dL 10/29/2024 5:49 AM EDT [facility] Plasma 10/29/2024 5:07 AM EDT 10/29/2024 5:13 AM EDT [facility] [place] Horner [facility] LAB BLOOD ORDERABLES Denisse l Result Performing Organization Address City/[facility]/ZIP Co de Phone Number [facility] [address] [facility] * (ABNORMAL) Hepatic Function Panel (10/29/2024 5:07 AM EDT) Total Bilirubin 4.2(H) 0.0 - 1.5 mg/dL 10/29/2024 5:49 AM EDT [facility] Bilirubin, Direct 2.85(H) 0.00 - 0.40 mg/dL 10/29/2024 5:49 AM EDT [facility] AST 31 13 - 39 U/L 10/29/2024 5:49 AM EDT [facility] ALT 88(H) 7 - 52 U/L 10/29/2024 5:49 AM EDT [facility] Alkaline Phosphatase 51 36 - 125 U/L 10/29/2024 5:49 AM EDT [facility] Total Protein 5.2(L) 6.4 - 8.9 g/dL 10/29/2024 5:49 AM EDT [facility] Albumin 3.5 3.5 - 5.7 g/dL 10/29/2024 5:49 AM EDT [facility] Bilirubin, Indirect 1.35(H) 0.00 - 1.10 mg/dL 10/29/2024 5:49 AM EDT [facility] Plasma 10/29/2024 5:07 AM EDT 10/29/2024 5:13 AM EDT Beata Horner [facility] LAB BLOOD ORDERABLES Denisse l Result [facility] [address] * (ABNORMAL) CBC (10/29/2024 5:07 AM EDT) WBC 7.8 3.8 - 10.8 10E3/uL 10/29/2024 5:38 AM EDT [facility] RBC 3.05(L) 4.20 - 5.80 10E6/uL 10/29/2024 5:38 AM EDT [facility] Hemoglobin 9.0(L) 13.2 - 17.1 g/dL 10/29/2024 5:38 AM EDT [facility] Hematocrit 26.7(L) 38.5 - 50.0 % 10/29/2024 5:38 AM EDT [facility] MCV 87.4 80.0 - 100.0 fL 10/29/2024 5:38 AM EDT [facility] MCH 29.7 27.0 - 33.0 pg 10/29/2024 5:38 AM EDT [facility] MCHC 33.9 32.0 - 36.0 g/dL 10/29/2024 5:38 AM EDT [facility] RDW 18.3(H) 11.0 - 15.0 % 10/29/2024 5:38 AM EDT [facility] Platelets 41(L) 140 - 400 10E3/uL 10/29/2024 5:38 AM EDT [facility] Comment: CNV Specimen checked for clots. None detected. MPV 7.5 7.5 - 11.5 fL 10/29/2024 5:38 AM EDT [facility] Whole Blood 10/29/2024 5:07 AM EDT 10/29/2024 5:13 AM EDT us Beata Horner [facility] LAB BLOOD ORDERABLES Denisse l Result [facility] [address] [place] [address], [facility] * (ABNORMAL) TEG-Bypass/ECMO/Liver HN (Factor function, Platelet/Fibrin Clot Strength w/Clot Breakdown, Heparinase In All Channels) (10/29/2024 5:07 AM EDT) [facility] Citrated Kaolin Reaction Time (TEGECMOLIVER) 8.9 4.6 - 9.1 minutes 10/29/2024 7:04 AM EDT [facility] Citrated Kaolin W/Heparinase Reaction Time (TEGECMOLIVER) 7.4 4.3 - 8.3 minutes 10/29/2024 7:04 AM EDT [facility] Citrated Kaolin Maximum Amplitude (TEGECMOLIVER) 52.9 52.0 - 69.0 mm 10/29/2024 7:04 AM EDT [facility] Citrated Functional Fibrinogen W/Heparinase Maximum Amplitude(TEGEC MOLIVER) 20.7 15.0 - 34.0 mm 10/29/2024 7:04 AM EDT [facility] Citrated Rapid Teg W/Heparinase Maximum Amplitude (TEGECMOLIVER) 49.7(L) 53.0 - 69.0 mm 10/29/2024 7:04 AM EDT [facility] Citrated Kaolin w/Heparinase Percent Lysis (TEGECMOLIVER) 0.0 0.0 - 3.2 % 10/29/2024 7:04 AM EDT [facility] Whole Blood (Citrate) 10/29/2024 5:07 AM EDT 10/29/2024 5:10 AM EDT Kemar Sahni MD LAB BLOOD ORDERABLES Final Result [facility] [address] * (ABNORMAL) TEG-Bypass/ECMO/Liver HN (Factor function, Platelet/Fibrin Clot Strength w/Clot Breakdown, Heparinase In All Channels) (10/28/2024 11:55 PM EDT) [facility] Citrated Kaolin Reaction Time (TEGECMOLIVER) 8.6 4.6 - 9.1 minutes 10/29/2024 2:01 AM EDT [facility] Citrated Kaolin W/Heparinase Reaction Time (TEGECMOLIVER) 8.7(H) 4.3 - 8.3 minutes 10/29/2024 2:01 AM EDT [facility] Citrated Kaolin Maximum Amplitude (TEGECMOLIVER) 47.9(L) 52.0 - 69.0 mm 10/29/2024 2:01 AM EDT [facility] Citrated Functional Fibrinogen W/Heparinase Maximum Amplitude(TEGEC MOLIVER) 22.0 15.0 - 34.0 mm 10/29/2024 2:01 AM EDT [facility] Citrated Rapid Teg W/Heparinase Maximum Amplitude (TEGECMOLIVER) 45.9(L) 53.0 - 69.0 mm 10/29/2024 2:01 AM EDT [facility] Citrated Kaolin w/Heparinase Percent Lysis (TEGECMOLIVER) 0.0 0.0 - 3.2 % 10/29/2024 2:01 AM EDT [facility] Whole Blood (Citrate) 10/28/2024 11:55 PM EDT 10/28/2024 11:58 PM EDT Kemar Sahni MD LAB BLOOD ORDERABLES Final Result [facility] [address] * (ABNORMAL) CBC, STAT (10/28/2024 8:04 PM EDT) Pathologist [facility] WBC 3.9 3.8 - 10.8 10E3/uL 10/28/2024 8:36 PM EDT [facility] RBC 2.66(L) 4.20 - 5.80 10E6/uL 10/28/2024 8:36 PM EDT [facility] Hemoglobin 8.0(L) 13.2 - 17.1 g/dL 10/28/2024 8:36 PM EDT [facility] Hematocrit 23.0(L) 38.5 - 50.0 % 10/28/2024 8:36 PM EDT [facility] MCV 86.4 80.0 - 100.0 fL 10/28/2024 8:36 PM EDT [facility] MCH 29.9 27.0 - 33.0 pg 10/28/2024 8:36 PM EDT [facility] MCHC 34.6 32.0 - 36.0 g/dL 10/28/2024 8:36 PM EDT [facility] RDW 18.6(H) 11.0 - 15.0 % 10/28/2024 8:36 PM EDT [facility] Platelets 29(L) 140 - 400 10E3/uL 10/28/2024 8:36 PM EDT [facility] Comment: CNV Specimen checked for clots. None detected. MPV 7.8 7.5 - 11.5 fL 10/28/2024 8:36 PM EDT [facility] Whole Blood 10/28/2024 8:04 PM EDT 10/28/2024 8:14 PM EDT us Carlos Marks MD LAB BLOOD ORDERABLES Final Result [facility] [address] * (ABNORMAL) POC Glucose Monitoring Device (10/28/2024 8:03 PM EDT) Pathologist [facility] POC Glucose Monitoring Device 122(H) 70 - 100 mg/dL 10/28/2024 8:04 PM EDT [facility] Blood 10/28/2024 8:03 PM EDT 10/28/2024 8:04 PM EDT Semaj Mcnair III, MD POINT OF CARE TEST ORDERABLES Final Result Performing Organization Address City/[facility]/ZIP Co de Phone Number [facility] [address] [place] [address], [facility] * (ABNORMAL) TEG-Bypass/ECMO/Liver HN (Factor function, Platelet/Fibrin Clot Strength w/Clot Breakdown, Heparinase In All Channels) (10/28/2024 6:39 PM EDT) [facility] Citrated Kaolin Reaction Time (TEGECMOLIVER) 9.0 4.6 - 9.1 minutes 10/28/2024 7:50 PM EDT [facility] Citrated Kaolin W/Heparinase Reaction Time (TEGECMOLIVER) 8.3 4.3 - 8.3 minutes 10/28/2024 7:50 PM EDT [facility] Citrated Kaolin Maximum Amplitude (TEGECMOLIVER) 47.6(L) 52.0 - 69.0 mm 10/28/2024 7:50 PM EDT [facility] Citrated Functional Fibrinogen W/Heparinase Maximum Amplitude(TEGEC MOLIVER) 20.4 15.0 - 34.0 mm 10/28/2024 7:50 PM EDT [facility] Citrated Rapid Teg W/Heparinase Maximum Amplitude (TEGECMOLIVER) 44.0(L) 53.0 - 69.0 mm 10/28/2024 7:50 PM EDT [facility] Citrated Kaolin w/Heparinase Percent Lysis (TEGECMOLIVER) 0.0 0.0 - 3.2 % 10/28/2024 7:50 PM EDT [facility] Whole Blood (Citrate) 10/28/2024 6:39 PM EDT 10/28/2024 6:42 PM EDT Kemar Sahni MD LAB BLOOD ORDERABLES Final Result [facility] [address] * (ABNORMAL) POC Glucose Monitoring Device (10/28/2024 5:31 PM EDT) POC Glucose Monitoring Device 130(H) 70 - 100 mg/dL 10/28/2024 5:31 PM EDT [facility] Blood 10/28/2024 5:31 PM EDT 10/28/2024 5:31 PM EDT us Semaj Mcnair III, MD POINT OF CARE TEST ORDERABLES Final Result Performing Organization Address [facility] de Phone Number [facility] [address] * Transfuse RBC Transfusion Rate: Per dept routine (10/28/2024 5:23 PM EDT) Shay Plata MD NURSING TREATMENT OR DERABLES - BLOOD ADMIN Final Result Performing Organization Address [facility] Co de Phone Number EXTERNAL * Transfuse RBC Transfusion Rate: Per dept routine, 1 Units (10/28/2024 5:23 PM EDT) Shay Plata MD NURSING TREATMENT OR DERABLES - BLOOD ADMIN Final Result Performing Organization Address [facility] de Phone Number EXTERNAL * [...] EXAM: US ABDOMEN LIMITED EXAM: US DUPLEX [id number] COMPLETE INDICATION: Post-op liver transplant DATE: 10/28/2024 [...] retrohepatic inferior vena cava is patent. [place] right kidney is partially visualized. A [...] EXAM: US ABDOMEN LIMITED EXAM: US DUPLEX [id number] COMPLETE INDICATION: Post-op liver transplant DATE: 10/28/2024 [...] retrohepatic inferior vena cava is patent. [place] right kidney is partially visualized. A [...] 4:42 PM EDT us Shay Plata MD [facility] US ORDERABLES Fi nal Result * US Duplex [id number] Comp (10/28/2024 4:23 PM EDT) Anatomical Region [...] EXAM: US ABDOMEN LIMITED EXAM: US DUPLEX [id number] COMPLETE INDICATION: Post-op liver transplant DATE: 10/28/2024 [...] retrohepatic inferior vena cava is patent. [place] right kidney is partially visualized. A [...] EXAM: US ABDOMEN LIMITED EXAM: US DUPLEX [id number] COMPLETE INDICATION: Post-op liver transplant DATE: 10/28/2024 [...] retrohepatic inferior vena cava is patent. [place] right kidney is partially visualized. A [...] 4:42 PM EDT us Shay Plata MD [facility] US ORDERABLES Fi nal Result * (ABNORMAL) CBC, STAT (10/28/2024 2:49 PM EDT) WBC 4.0 3.8 - 10.8 10E3/uL 10/28/2024 3:07 PM EDT [facility] RBC 2.44(L) 4.20 - 5.80 10E6/uL 10/28/2024 3:07 PM EDT [facility] Hemoglobin 7.5(L) 13.2 - 17.1 g/dL 10/28/2024 3:07 PM EDT [facility] Hematocrit 21.4(L) 38.5 - 50.0 % 10/28/2024 3:07 PM EDT [facility] MCV 87.6 80.0 - 100.0 fL 10/28/2024 3:07 PM EDT [facility] MCH 30.6 27.0 - 33.0 pg 10/28/2024 3:07 PM EDT [facility] MCHC 34.9 32.0 - 36.0 g/dL 10/28/2024 3:07 PM EDT [facility] RDW 18.4(H) 11.0 - 15.0 % 10/28/2024 3:07 PM EDT [facility] Platelets 30(L) 140 - 400 10E3/uL 10/28/2024 3:07 PM EDT [facility] Comment: CNV Specimen checked for clots. None detected. MPV 7.7 7.5 - 11.5 fL 10/28/2024 3:07 PM EDT [facility] Whole Blood 10/28/2024 2:49 PM EDT 10/28/2024 2:53 PM EDT us Carlos Marks MD LAB BLOOD ORDERABLES Final Result [facility] [address] [place] [address], [facility] * ECG 12 lead (MUSE) (10/28/2024 1:22 PM EDT) 10/28/2024 1:22 PM EDT Narrative MUSE - 10/29/2024 10:34 PM EDT Ventricular Rate: 104 BPM Atrial Rate: 104 BPM P-R Interval: 172 ms QRS Duration: 90 ms QT: 354 ms QTc: 465 ms P [place]: 58 degrees R [place]: -19 degrees T [place]: 38 degrees Diagnosis Line: SINUS TACHYCARDIA ^ OTHERWISE NORMAL ECG ^ ^ Confirmed by JORGE MACIAS ([id number]) on 10/29/2024 10:34:22 PM us Hillary Fernandes PharmD ECG ORDERABLES Final Res ult Performing Organization Address [facility] de Phone Number MUSE * (ABNORMAL) POC Glucose Monitoring Device (10/28/2024 12:54 PM EDT) POC Glucose Monitoring Device 119(H) 70 - 100 mg/dL 10/28/2024 12:55 PM EDT [facility] Blood 10/28/2024 12:5 4 PM EDT 10/28/2024 12:55 PM EDT us Semaj Mcnair III, MD POINT OF CARE TEST ORDERABLES Final Result Performing Organization Address [facility] de Phone Number [facility] [address] * Transfuse RBC Transfusion Rate: Per dept routine (10/28/2024 12:31 PM EDT) Carlos Marks MD NURSING TREATMENT ORDERABLE S - BLOOD ADMIN Final Result Performing Organization Address [facility] de Phone Number EXTERNAL * Transfuse RBC Transfusion Rate: Per dept routine, 1 Units (10/28/2024 12:31 PM EDT) Carlos Marks MD NURSING TREATMENT ORDERABLE S - BLOOD ADMIN Final Result Performing Organization Address [facility] de Phone Number EXTERNAL * Protime-INR, STAT (10/28/2024 11:09 AM EDT) Protime 14.3 12.1 - 15.1 seconds 10/28/2024 11:29 AM EDT [facility] INR 1.1 0.9 - 1.1 10/28/2024 11:29 AM EDT [facility] Comment: RECOMMENDED THERAPEUTIC RANGES USING INR : Stable oral anticoagulant therapy: 2.0 - 3.0 Mechanical prosthetic heart valve: 2.5 - 3.5 Recurrent acute myocardial infarction: 2.5 - 3.5 Plasma 10/28/2024 11:0 9 AM EDT 10/28/2024 11:16 AM EDT us Carlos Marks MD LAB BLOOD ORDERABLES Final Result Performing Organization Address [facility]/ZIP Co de Phone Number [facility] [address] [place] [address]. [address] * (ABNORMAL) Lactic Acid, STAT (10/28/2024 11:09 AM EDT) Lactate 0.3(L) 0.5 - 2.2 mmol/L 10/28/2024 11:37 AM EDT [facility] Plasma 10/28/2024 11:0 9 AM EDT 10/28/2024 11:15 AM EDT us Carlos Marks MD LAB BLOOD ORDERABLES Final Result Performing Organization Address [facility] Co de Phone Number [facility] [address] [facility]. [address] * Magnesium, STAT (10/28/2024 11:09 AM EDT) Magnesium 2.1 1.5 - 2.5 mg/dL 10/28/2024 11:47 AM EDT [facility] Plasma 10/28/2024 11:0 9 AM EDT 10/28/2024 11:16 AM EDT us Carlos Marks MD LAB BLOOD ORDERABLES Final Result Performing Organization Address City/[facility] de Phone Number [facility] [address] [place] [address]. [address] * (ABNORMAL) Renal Function Panel w/EGFR, STAT (10/28/2024 11:09 AM EDT) Sodium 144 133 - 146 mmol/L 10/28/2024 11:47 AM EDT [facility] Potassium 3.4(L) 3.5 - 5.3 mmol/L 10/28/2024 11:47 AM EDT [facility] Chloride 112(H) 98 - 110 mmol/L 10/28/2024 11:47 AM EDT [facility] CO2 22 21 - 33 mmol/L 10/28/2024 11:47 AM EDT [facility] Anion Gap 10 3 - 16 mmol/L 10/28/2024 11:47 AM T [facility] BUN 57(H) 7 - 25 mg/dL 10/28/2024 11:47 AM [facility] Creatinine 2.01(H) 0.60 - 1.30 mg/dL 10/28/2024 11:47 AM [facility] Glucose 108(H) 70 - 100 mg/dL 10/28/2024 11:47 AM T [facility] Calcium 8.8 8.6 - 10.3 mg/dL 10/28/2024 11:47 AM T [facility] Phosphorus 4.0 2.1 - 4.7 mg/dL 10/28/2024 11:47 AM [facility] Albumin 3.3(L) 3.5 - 5.7 g/dL 10/28/2024 11:47 AM [facility] Osmolality, Calculated 314(H) 278 - 305 mOsm/kg 10/28/2024 11:47 AM [facility] EGFR 42 10/28/2024 11:47 AM [facility] Comment:As of 2021, the [...] Marks MD LAB BLOOD ORDERABLES Final Result [facility] [address] [place] [address], [facility] * (ABNORMAL) TEG-Bypass/ECMO/Liver HN (Factor function, Platelet/Fibrin Clot Strength w/Clot Breakdown, Heparinase In All Channels) (10/28/2024 11:09 AM EDT) [facility] Citrated Kaolin Reaction Time (TEGECMOLIVER) 9.2(H) 4.6 - 9.1 minutes 10/28/2024 12:30 PM EDT [facility] Citrated Kaolin W/Heparinase Reaction Time (TEGECMOLIVER) 9.6(H) 4.3 - 8.3 minutes 10/28/2024 12:30 PM EDT [facility] Citrated Kaolin Maximum Amplitude (TEGECMOLIVER) 51.2(L) 52.0 - 69.0 mm 10/28/2024 12:30 PM EDT [facility] Citrated Functional Fibrinogen W/Heparinase Maximum Amplitude(TEGEC MOLIVER) 21.6 15.0 - 34.0 mm 10/28/2024 12:30 PM EDT [facility] Citrated Rapid Teg W/Heparinase Maximum Amplitude (TEGECMOLIVER) 49.3(L) 53.0 - 69.0 mm 10/28/2024 12:30 PM EDT [facility] Citrated Kaolin w/Heparinase Percent Lysis (TEGECMOLIVER) 0.0 0.0 - 3.2 % 10/28/2024 12:30 PM EDT [facility] Whole Blood (Citrate) 10/28/2024 11:09 AM EDT 10/28/2024 11:14 AM EDT Kemar Sahni MD LAB BLOOD ORDERABLES Final Result [facility] [address] * (ABNORMAL) CBC (10/28/2024 10:21 AM EDT) [facility] WBC 4.1 3.8 - 10.8 10E3/uL 10/28/2024 10:41 AM EDT [facility] RBC 2.30(L) 4.20 - 5.80 10E6/uL 10/28/2024 10:41 AM EDT [facility] Hemoglobin 7.1(L) 13.2 - 17.1 g/dL 10/28/2024 10:41 AM EDT [facility] Hematocrit 20.4(L) 38.5 - 50.0 % 10/28/2024 10:41 AM EDT [facility] MCV 88.5 80.0 - 100.0 fL 10/28/2024 10:41 AM EDT [facility] MCH 30.7 27.0 - 33.0 pg 10/28/2024 10:41 AM EDT [facility] MCHC 34.7 32.0 - 36.0 g/dL 10/28/2024 10:41 AM EDT [facility] RDW 18.7(H) 11.0 - 15.0 % 10/28/2024 10:41 AM EDT [facility] Platelets 37(L) 140 - 400 10E3/uL 10/28/2024 10:41 AM EDT [facility] Comment: CNV Specimen checked for clots. None detected. MPV 7.6 7.5 - 11.5 fL 10/28/2024 10:41 AM EDT [facility] Whole Blood 10/28/2024 10:2 1 AM EDT 10/28/2024 10:29 AM EDT us Carlos Marks MD LAB BLOOD ORDERABLES Final Result [facility] [address] * POC Glucose Monitoring Device (10/28/2024 9:07 AM EDT) [facility] POC Glucose Monitoring Device 97 70 - 100 mg/dL 10/28/2024 9:08 AM EDT [facility] Blood 10/28/2024 9:07 AM EDT 10/28/2024 9:08 AM EDT Semaj Mcnair III, MD POINT OF CARE TEST ORDERABLES Final Result Performing Organization Address [facility] de Phone Number [facility] [address] * (ABNORMAL) Tacrolimus level (10/28/2024 8:20 AM EDT) Tacrolimus (LC-MS) <1.0(L) 3.0 - 15.0 ng/mL 10/28/2024 2:02 PM EDT [facility] Comment:Performed via liquid chromatography tandem mass spectrometry. Detection limit: 1 ng/mL. Individual target concentrations may vary due to target organ and time after transplant. This test has been developed and its performance characteristics determined by [facility] which is certified under the Clinical [...] EDT 10/28/2024 8:29 AM EDT Priti Geiger [facility] LAB BLOOD ORDERABLES Final Re sult Performing Organization Address [facility] Co de Phone Number [facility] [address] [place] [facility] [place]. [address] * (ABNORMAL) POC Glucose Monitoring Device (10/28/2024 8:10 AM EDT) POC Glucose Monitoring Device 102(H) 70 - 100 mg/dL 10/28/2024 8:11 AM EDT [facility] Blood 10/28/2024 8:10 AM EDT 10/28/2024 8:11 AM EDT Semaj Mcnair III, MD POINT OF CARE TEST ORDERABLES Final Result Performing Organization Address [facility] Co de Phone Number [address] * POC Glucose Monitoring Device (10/28/2024 6:17 AM EDT) POC Glucose Monitoring Device 100 70 - 100 mg/dL 10/28/2024 6:18 AM EDT [facility] Blood 10/28/2024 6:17 AM EDT 10/28/2024 6:18 AM EDT Semaj Mcnair III, MD POINT OF CARE TEST ORDERABLES Final Result Performing Organization Address [facility] de Phone Number [address] * Prepare Platelets, leukoreduced (10/28/2024 6:15 AM EDT) Product Code A8800D50 HCLL Unit Number [id number] HCLL Dispense Status Presumed Transfused_PT HCLL Blood Expiration Date HCLL Coding System [id number] HCLL Product Code X5264H44 HCLL Unit Number [id number] HCLL Dispense Status Presumed Transfused_PT HCLL Blood Expiration Date HCLL Coding System [id number] HCLL us Attending Provider Unknown BLOOD BANK PRODUCT OR DERABLES Final Result HC[facility] * Prepare Fresh Frozen Plasma (10/28/2024 6:15 AM EDT) Product Code S1601B68 HCLL Unit Number [id number] HCLL Dispense Status Released from Crossmatch_RE HCLL Blood Expiration Date HCLL Coding System MCMZ932 HCLL Product Code I4187Z48 HCLL Unit Number [id number] HCLL Dispense Status Presumed Transfused_PT HCLL Blood Expiration Date HCLL Coding System [id number] HCLL Product Code R3477D69 HCLL Unit Number [id number] HCLL Dispense Status Released from Crossmatch_RE HCLL Blood Expiration Date HCLL Coding System [id number] HCLL Product Code U9825V67 HCLL Unit Number [id number] HCLL Dispense Status Presumed Transfused_PT HCLL Blood Expiration Date HCLL Coding System DGFZ387 HCLL Product Code Q3443U79 HCLL Unit Number [id number] HCLL Dispense Status Released from Crossmatch_RE HCLL Blood Expiration Date [id number] HCLL Coding System [id number] HCLL us Attending Provider Unknown BLOOD BANK PRODUCT OR DERABLES Final Result [facility] * Prepare RBC, leukoreduced (10/28/2024 6:15 AM EDT) Product Code X1982X89 HCLL Unit Number [id number] HCLL Dispense Status Released from Crossmatch_RE HCLL Blood Expiration Date HCLL Coding System YILL875 HCLL Product Code Y9515Z04 HCLL Unit Number [id number] HCLL Dispense Status Presumed Transfused_PT HCLL Blood Expiration Date [id number] HCLL Coding System YZMA910 HCLL Product Code T0225K19 HCLL Unit Number [id number] HCLL Dispense Status Released from Crossmatch_RE HCLL Blood Expiration Date [id number] HCLL Coding System GWKB413 HCLL Product Code Z4638K01 HCLL Unit Number [id number] HCLL Dispense Status Presumed Transfused_PT HCLL Blood Expiration Date 899740492347 HCLL Coding System GGEL851 HCLL Product Code K6674K56 HCLL Unit Number [id number] HCLL Dispense Status Released from Crossmatch_RE HCLL Blood Expiration Date 444346954352 HCLL Coding System JEPX612 HCLL Attending Provider Unknown BLOOD BANK PRODUCT OR DERABLES Final Result [facility] * Prepare Platelets, leukoreduced, 1 Units (10/28/2024 6:15 AM EDT) Product Code C0874U46 HCLL Unit Number [id number] HCLL Dispense Status Presumed Transfused_PT HCLL Blood Expiration Date 637264128857 HCLL Coding System [id number] HCLL Blood Bank Product John Pina MD BLOOD BANK PRODUCT ORDERABLES F inal Result Performing Organization Address [facility] Co de Phone Number HC[facility] * Prepare Cryoprecipitate, 1 Units (10/28/2024 6:15 AM EDT) Product Code Q7199M86 HCLL Unit Number [id number] HCLL Dispense Status Presumed Transfused_PT HCLL Blood Expiration Date HCLL Coding System ZDPH971 HCLL Product Code B1527Q08 HCLL Unit Number [id number] HCLL Dispense Status Presumed Transfused_PT HCLL Blood Expiration Date HCLL Coding System HSED003 HCLL Blood Bank Product John Pina MD BLOOD BANK PRODUCT ORDERABLES F inal Result [facility] * Prepare Fresh Frozen Plasma, 1 Units (10/28/2024 6:15 AM EDT) Product Code G9077Y48 HCLL Unit Number [id number] HCLL Dispense Status Presumed Transfused_PT HCLL Blood Expiration Date [id number] HCLL Coding System [id number] HCLL Blood Bank Product John Pina MD BLOOD BANK PRODUCT ORDERABLES F inal Result [facility] * Prepare Cryoprecipitate, 1 Units (10/28/2024 6:15 AM EDT) Product Code S4211F14 HCLL Unit Number [id number] HCLL Dispense Status Presumed Transfused_PT HCLL Blood Expiration Date HCLL Coding System [id number] HCLL Product Code Z9117O97 HCLL Unit Number [id number] HCLL Dispense Status Presumed Transfused_PT HCLL Blood Expiration Date HCLL Coding System FEXO944 HCLL Product Code A3810P10 HCLL Unit Number [id number] HCLL Dispense Status Presumed Transfused_PT HCLL Blood Expiration Date HCLL Coding System IXTA839 HCLL Product Code G2464N47 HCLL Unit Number [id number] HCLL Dispense Status Presumed Transfused_PT HCLL Blood Expiration Date HCLL Coding System [id number] HCLL Blood Bank Product John Pina MD BLOOD BANK PRODUCT ORDERABLES F inal Result Performing Organization Address [facility]/ZIP Co de Phone Number HC[facility] * (ABNORMAL) POC Glucose Monitoring Device (10/28/2024 4:55 AM EDT) POC Glucose Monitoring Device 104(H) 70 - 100 mg/dL 10/28/2024 4:57 AM EDT [facility] Blood 10/28/2024 4:55 AM EDT 10/28/2024 4:57 AM EDT Semaj Mcnair III, MD POINT OF CARE TEST ORDERABLES Final Result Performing Organization Address City/[facility]/ZIP Co de Phone Number [facility] [address] [place] [address], [facility] * TEG-Bypass/ECMO/Liver HN (Factor function, Platelet/Fibrin Clot Strength w/Clot Breakdown, Heparinase In All Channels) (10/28/2024 4:13 AM EDT) Citrated Kaolin Reaction Time (TEGECMOLIVER) 7.2 4.6 - 9.1 minutes 10/28/2024 5:38 AM EDT [facility] Citrated Kaolin W/Heparinase Reaction Time (TEGECMOLIVER) 7.8 4.3 - 8.3 minutes 10/28/2024 5:38 AM EDT [facility] Citrated Kaolin Maximum Amplitude (TEGECMOLIVER) 53.0 52.0 - 69.0 mm 10/28/2024 5:38 AM EDT [facility] Citrated Functional Fibrinogen W/Heparinase Maximum Amplitude(TEGEC MOLIVER) 21.4 15.0 - 34.0 mm 10/28/2024 5:38 AM EDT [facility] Citrated Rapid Teg W/Heparinase Maximum Amplitude (TEGECMOLIVER) 54.7 53.0 - 69.0 mm 10/28/2024 5:38 AM EDT [facility] Citrated Kaolin w/Heparinase Percent Lysis (TEGECMOLIVER) 0.0 0.0 - 3.2 % 10/28/2024 5:38 AM EDT [facility] Whole Blood (Citrate) 10/28/2024 4:13 AM EDT 10/28/2024 4:28 AM EDT Kemar Sahni MD LAB BLOOD ORDERABLES Final Result [facility] [address] * Protime-INR (10/28/2024 4:13 AM EDT) Protime 14.6 12.1 - 15.1 seconds 10/28/2024 4:53 AM EDT [facility] INR 1.1 0.9 - 1.1 10/28/2024 4:53 AM EDT [facility] Comment: RECOMMENDED THERAPEUTIC RANGES USING INR : Stable oral anticoagulant therapy: 2.0 - 3.0 Mechanical prosthetic heart valve: 2.5 - 3.5 Recurrent acute myocardial infarction: 2.5 - 3.5 Plasma 10/28/2024 4:1 3 AM EDT 10/28/2024 4:41 AM EDT Kemar Sahni MD LAB BLOOD ORDERABLES Final Result Performing Organization Address City/[facility]/ZIP Co de Phone Number [facility] [address] [facility]. [address] * Magnesium (10/28/2024 4:13 AM EDT) Magnesium 2.2 1.5 - 2.5 mg/dL 10/28/2024 5:15 AM EDT [facility] Plasma 10/28/2024 4:13 AM EDT 10/28/2024 4:41 AM EDT Kemar Sahni MD LAB BLOOD ORDERABLES Final Result Performing Organization Address [facility] de Phone Number [facility] [address] * (ABNORMAL) Hepatic Function Panel (10/28/2024 4:13 AM EDT) Total Bilirubin 2.3(H) 0.0 - 1.5 mg/dL 10/28/2024 5:15 AM EDT [facility] Bilirubin, Direct 1.67(H) 0.00 - 0.40 mg/dL 10/28/2024 5:15 AM EDT [facility] AST 44(H) 13 - 39 U/L 10/28/2024 5:15 AM EDT [facility] ALT 101(H) 7 - 52 U/L 10/28/2024 5:15 AM EDT [facility] Alkaline Phosphatase 26(L) 36 - 125 U/L 10/28/2024 5:15 AM EDT [facility] Total Protein 4.5(L) 6.4 - 8.9 g/dL 10/28/2024 5:15 AM EDT [facility] Albumin 3.1(L) 3.5 - 5.7 g/dL 10/28/2024 5:15 AM EDT [facility] Bilirubin, Indirect 0.63 0.00 - 1.10 mg/dL 10/28/2024 5:15 AM EDT [facility] Plasma 10/28/2024 4:13 AM EDT 10/28/2024 4:41 AM EDT Kemar Sahni MD LAB BLOOD ORDERABLES Final Result [facility] [address] [place] [address], [facility] * (ABNORMAL) Renal Function Panel w/EGFR (10/28/2024 4:13 AM EDT) Sodium 142 133 - 146 mmol/L 10/28/2024 5:15 AM EDT [facility] Potassium 3.5 3.5 - 5.3 mmol/L 10/28/2024 5:15 AM EDT [facility] Chloride 111(H) 98 - 110 mmol/L 10/28/2024 5:15 AM EDT [facility] CO2 22 21 - 33 mmol/L 10/28/2024 5:15 AM EDT [facility] Anion Gap 9 3 - 16 mmol/L 10/28/2024 5:15 AM EDT [facility] BUN 58(H) 7 - 25 mg/dL 10/28/2024 5:15 AM EDT [facility] Creatinine 2.24(H) 0.60 - 1.30 mg/dL 10/28/2024 5:15 AM EDT [facility] Glucose 103(H) 70 - 100 mg/dL 10/28/2024 5:15 AM EDT [facility] Calcium 9.1 8.6 - 10.3 mg/dL 10/28/2024 5:15 AM EDT [facility] Phosphorus 4.8(H) 2.1 - 4.7 mg/dL 10/28/2024 5:15 AM EDT [facility] Albumin 3.1(L) 3.5 - 5.7 g/dL 10/28/2024 5:15 AM EDT [facility] Osmolality, Calculated 310(H) 278 - 305 mOsm/kg 10/28/2024 5:15 AM EDT [facility] EGFR 37 10/28/2024 5:15 AM EDT [facility] Comment:As [...] Sahni MD LAB BLOOD ORDERABLES Final Result [facility] [address] * (ABNORMAL) CBC (10/28/2024 4:13 AM EDT) WBC 4.5 3.8 - 10.8 10E3/uL 10/28/2024 5:09 AM EDT [facility] RBC 2.39(L) 4.20 - 5.80 10E6/uL 10/28/2024 5:09 AM EDT [facility] Hemoglobin 7.3(L) 13.2 - 17.1 g/dL 10/28/2024 5:09 AM EDT [facility] Hematocrit 21.0(L) 38.5 - 50.0 % 10/28/2024 5:09 AM EDT [facility] MCV 87.8 80.0 - 100.0 fL 10/28/2024 5:09 AM EDT [facility] MCH 30.5 27.0 - 33.0 pg 10/28/2024 5:09 AM EDT [facility] MCHC 34.7 32.0 - 36.0 g/dL 10/28/2024 5:09 AM EDT [facility] RDW 18.7(H) 11.0 - 15.0 % 10/28/2024 5:09 AM EDT [facility] Platelets 38(L) 140 - 400 10E3/uL 10/28/2024 5:09 AM EDT [facility] Comment: CNV Specimen checked for clots. None detected. MPV 7.6 7.5 - 11.5 fL 10/28/2024 5:09 AM EDT [facility] Whole Blood 10/28/2024 4:13 AM EDT 10/28/2024 4:41 AM EDT Kemar Sahni MD LAB BLOOD ORDERABLES Final Result Performing Organization Address City/[facility]/ZIP Co de Phone Number [facility] [address] [facility]. [address] * (ABNORMAL) POC Glucose Monitoring Device (10/28/2024 4:04 AM EDT) POC Glucose Monitoring Device 103(H) 70 - 100 mg/dL 10/28/2024 4:05 AM EDT [facility] Blood 10/28/2024 4:04 AM EDT 10/28/2024 4:05 AM EDT Semaj Mcnair III, MD POINT OF CARE TEST ORDERABLES Final Result [facility] [address] * (ABNORMAL) POC Glucose Monitoring Device (10/28/2024 3:00 AM EDT) POC Glucose Monitoring Device 106(H) 70 - 100 mg/dL 10/28/2024 3:01 AM EDT [facility] Blood 10/28/2024 3:00 AM EDT 10/28/2024 3:01 AM EDT us Semaj Mcnair III, MD POINT OF CARE TEST ORDERABLES Final Result Performing Organization Address [facility] Co de Phone Number [facility] [address] [facility], [place]. [address] * (ABNORMAL) POC Glucose Monitoring Device (10/28/2024 2:32 AM EDT) POC Glucose Monitoring Device 109(H) 70 - 100 mg/dL 10/28/2024 2:33 AM EDT [facility] Blood 10/28/2024 2:32 AM EDT 10/28/2024 2:33 AM EDT us Semaj Mcnair III, MD POINT OF CARE TEST ORDERABLES Final Result Performing Organization Address [facility] Co de Phone Number [facility] [address] [place], [place] [address]ue [facility], [place]. [address] * (ABNORMAL) POC Glucose Monitoring Device (10/28/2024 2:14 AM EDT) POC Glucose Monitoring Device 115(H) 70 - 100 mg/dL 10/28/2024 2:15 AM EDT [facility] Blood 10/28/2024 2:14 AM EDT 10/28/2024 2:15 AM EDT Semaj Mcnair III, MD POINT OF CARE TEST ORDERABLES Final Result Performing Organization Address City/[facility]/ZIP Co de Phone Number [facility] [address] [place] [facility], [place]. [address] * (ABNORMAL) POC Glucose Monitoring Device (10/28/2024 2:03 AM EDT) POC Glucose Monitoring Device 101(H) 70 - 100 mg/dL 10/28/2024 2:04 AM EDT [facility] Blood 10/28/2024 2:03 AM EDT 10/28/2024 2:04 AM EDT Semaj Mcnair III, MD POINT OF CARE TEST ORDERABLES Final Result Performing Organization Address City/[facility]/ZIP Co de Phone Number [facility] [address] [place] [address], [facility] * Transfuse RBC Transfusion Rate: Per dept routine (10/28/2024 1:51 AM EDT) John Moreno MD NURSING TREATMENT ORDERABLES - BLOOD ADMIN Final Result EXTERNAL * Transfuse RBC Transfusion Rate: Per dept routine, 1 Units (10/28/2024 1:51 AM EDT) John Moreno MD NURSING TREATMENT ORDERABLES - BLOOD ADMIN Final Result Performing Organization Address [facility] Co de Phone Number EXTERNAL * (ABNORMAL) TEG-Bypass/ECMO/Liver HN (Factor function, Platelet/Fibrin Clot Strength w/Clot Breakdown, Heparinase In All Channels) (10/28/2024 12:05 AM EDT) [facility] Citrated Kaolin Reaction Time (TEGECMOLIVER) 7.5 4.6 - 9.1 minutes 10/28/2024 1:22 AM EDT [facility] Citrated Kaolin W/Heparinase Reaction Time (TEGECMOLIVER) 7.7 4.3 - 8.3 minutes 10/28/2024 1:22 AM EDT [facility] [employer]rated Kaolin Maximum Amplitude (TEGECMOLIVER) 54.4 52.0 - 69.0 mm 10/28/2024 1:22 AM EDT [facility] Citrated Functional Fibrinogen W/Heparinase Maximum Amplitude(TEGEC MOLIVER) 20.4 15.0 - 34.0 mm 10/28/2024 1:22 AM EDT [facility] Citrated Rapid Teg W/Heparinase Maximum Amplitude (TEGECMOLIVER) 51.0(L) 53.0 - 69.0 mm 10/28/2024 1:22 AM EDT [facility] Citrated Kaolin w/Heparinase Percent Lysis (TEGECMOLIVER) 0.0 0.0 - 3.2 % 10/28/2024 1:22 AM EDT [facility] Whole Blood (Citrate) 10/28/2024 12:05 AM EDT 10/28/2024 12:09 AM EDT Kemar Sahni MD LAB BLOOD ORDERABLES Final Result Performing Organization Address City/[facility]/ZIP Co de Phone Number [facility] [address] * Magnesium (10/28/2024 12:05 AM EDT) Magnesium 2.2 1.5 - 2.5 mg/dL 10/28/2024 1:59 AM EDT [facility] Plasma 10/28/2024 12:0 5 AM EDT 10/28/2024 12:11 AM EDT Kemar Sahni MD LAB BLOOD ORDERABLES Final Result Performing Organization Address [facility] de Phone Number [facility] [address] * (ABNORMAL) Renal Function Panel w/EGFR (10/28/2024 12:05 AM EDT) Sodium 144 133 - 146 mmol/L 10/28/2024 1:59 AM EDT [facility] Potassium 3.4(L) 3.5 - 5.3 mmol/L 10/28/2024 1:59 AM EDT [facility] Chloride 112(H) 98 - 110 mmol/L 10/28/2024 1:59 AM EDT [facility] CO2 19(L) 21 - 33 mmol/L 10/28/2024 1:59 AM EDT [facility] Anion Gap 13 3 - 16 mmol/L 10/28/2024 1:59 AM EDT [facility] BUN 59(H) 7 - 25 mg/dL 10/28/2024 1:59 AM EDT [facility] Creatinine 2.42(H) 0.60 - 1.30 mg/dL 10/28/2024 1:59 AM EDT [facility] Glucose 118(H) 70 - 100 mg/dL 10/28/2024 1:59 AM EDT [facility] Calcium 9.0 8.6 - 10.3 mg/dL 10/28/2024 1:59 AM EDT [facility] Phosphorus 5.3(H) 2.1 - 4.7 mg/dL 10/28/2024 1:59 AM EDT [facility] Albumin 3.1(L) 3.5 - 5.7 g/dL 10/28/2024 1:59 AM EDT [facility] Osmolality, Calculated 316(H) 278 - 305 mOsm/kg 10/28/2024 1:59 AM EDT [facility] EGFR 34 10/28/2024 1:59 AM EDT [facility] Comment:As [...] Sahni MD LAB BLOOD ORDERABLES Final Result [facility] [address] [place] [address], [facility] * (ABNORMAL) Differential (10/28/2024 12:05 AM EDT) Neutrophils Relative 88.6(H) 40.0 - 80.0 % 10/28/2024 12:41 AM EDT [facility] Lymphocytes Relative 2.5(L) 15.0 - 45.0 % 10/28/2024 12:41 AM EDT [facility] Monocytes Relative 6.1 0.0 - 12.0 % 10/28/2024 12:41 AM EDT [facility] Eosinophils Relative 2.4 0.0 - 8.0 % 10/28/2024 12:41 AM EDT [facility] Basophils Relative 0.4 0.0 - 1.0 % 10/28/2024 12:41 AM EDT [facility] nRBC 0 0 - 0 /100 WBC 10/28/2024 12:41 AM EDT [facility] Neutrophils Absolute 4,341 1,520 - 8,640 /uL 10/28/2024 12:41 AM EDT [facility] Lymphocytes Absolute 123(L) 570 - 4,860 /uL 10/28/2024 12:41 AM EDT [facility] Monocytes Absolute 299 0 - 1,296 /uL 10/28/2024 12:41 AM EDT [facility] Eosinophils Absolute 118 0 - 864 /uL 10/28/2024 12:41 AM EDT [facility] Basophils Absolute 20 0 - 108 /uL 10/28/2024 12:41 AM EDT [facility] Whole Blood 10/28/2024 12:0 5 AM EDT 10/28/2024 12:11 AM EDT Kemar Sahni MD LAB BLOOD ORDERABLES Final Result Performing Organization Address City/State/[facility] Co de Phone Number [facility] [address] * (ABNORMAL) CBC (10/28/2024 12:05 AM EDT) WBC 4.9 3.8 - 10.8 10E3/uL 10/28/2024 12:41 AM EDT [facility] RBC 2.18(L) 4.20 - 5.80 10E6/uL 10/28/2024 12:41 AM EDT [facility] Hemoglobin 6.7(L) 13.2 - 17.1 g/dL 10/28/2024 12:41 AM EDT [facility] Hematocrit 19.2(L) 38.5 - 50.0 % 10/28/2024 12:41 AM EDT [facility] MCV 87.8 80.0 - 100.0 fL 10/28/2024 12:41 AM EDT [facility] MCH 30.6 27.0 - 33.0 pg 10/28/2024 12:41 AM EDT [facility] MCHC 34.8 32.0 - 36.0 g/dL 10/28/2024 12:41 AM EDT [facility] RDW 19.6(H) 11.0 - 15.0 % 10/28/2024 12:41 AM EDT [facility] Platelets 45(L) 140 - 400 10E3/uL 10/28/2024 12:41 AM EDT [facility] Comment: CNV Specimen checked for clots. None detected. MPV 7.8 7.5 - 11.5 fL 10/28/2024 12:41 AM EDT [facility] Whole Blood 10/28/2024 12:0 5 AM EDT 10/28/2024 12:11 AM EDT us Kemar Sahni MD LAB BLOOD ORDERABLES Final Result [facility] [address] * (ABNORMAL) POC Glucose Monitoring Device (10/28/2024 12:03 AM EDT) POC Glucose Monitoring Device 122(H) 70 - 100 mg/dL 10/28/2024 12:04 AM EDT [facility] Blood 10/28/2024 12:0 3 AM EDT 10/28/2024 12:04 AM EDT us Semaj Mcnair III, MD POINT OF CARE TEST ORDERABLES Final Result [facility] [address] * (ABNORMAL) POC Glucose Monitoring Device (10/27/2024 10:03 PM EDT) POC Glucose Monitoring Device 127(H) 70 - 100 mg/dL 10/27/2024 10:03 PM EDT [facility] Blood 10/27/2024 10:0 3 PM EDT 10/27/2024 10:03 PM EDT us Semaj Mcnair III, MD POINT OF CARE TEST ORDERABLES Final Result Performing Organization Address City/[facility]/ZIP Co de Phone Number [facility] [address] [place] [address] * (ABNORMAL) POC Glucose Monitoring Device (10/27/2024 8:06 PM EDT) POC Glucose Monitoring Device 128(H) 70 - 100 mg/dL 10/27/2024 8:45 PM EDT [facility] Blood 10/27/2024 8:06 PM EDT 10/27/2024 8:45 PM EDT us Semaj Mcnair III, MD POINT OF CARE TEST ORDERABLES Final Result Performing Organization Address [facility] Co de Phone Number [facility] [address] [place] [address]. [address] * (ABNORMAL) POC Glucose Monitoring Device (10/27/2024 6:00 PM EDT) POC Glucose Monitoring Device 128(H) 70 - 100 mg/dL 10/27/2024 6:00 PM EDT [facility] Blood 10/27/2024 6:00 PM EDT 10/27/2024 6:00 PM EDT us Semaj Mcnair III, MD POINT OF CARE TEST ORDERABLES Final Result Performing Organization Address City/[facility] Co de Phone Number [facility] [address] [place] [address] * Lactic Acid, STAT (10/27/2024 5:41 PM EDT) Lactate 0.5 0.5 - 2.2 mmol/L 10/27/2024 6:28 PM EDT [facility] Plasma 10/27/2024 5:41 PM EDT 10/27/2024 5:49 PM EDT Narrative [facility] - 10/27/2024 6:28 PM EDT Redraw us John Moreno MD LAB BLOOD ORDERABLES Final R esult Performing Organization Address City/[facility]/ZIP Co de Phone Number [facility] [address] [facility]. [address] * (ABNORMAL) Hepatic Function Panel, STAT (10/27/2024 5:13 PM EDT) Total Bilirubin 1.7(H) 0.0 - 1.5 mg/dL 10/27/2024 5:50 PM EDT [facility] Bilirubin, Direct 1.17(H) 0.00 - 0.40 mg/dL 10/27/2024 5:50 PM EDT [facility] AST 60(H) 13 - 39 U/L 10/27/2024 5:50 PM EDT [facility] ALT 134(H) 7 - 52 U/L 10/27/2024 5:50 PM EDT [facility] Alkaline Phosphatase 27(L) 36 - 125 U/L 10/27/2024 5:50 PM EDT [facility] Total Protein 4.1(L) 6.4 - 8.9 g/dL 10/27/2024 5:50 PM EDT [facility] Albumin 2.9(L) 3.5 - 5.7 g/dL 10/27/2024 5:50 PM EDT [facility] Bilirubin, Indirect 0.53 0.00 - 1.10 mg/dL 10/27/2024 5:50 PM EDT [facility] Plasma 10/27/2024 5:13 PM EDT 10/27/2024 5:23 PM EDT us Shay Plata MD LAB BLOOD ORDERABLES Final Result [facility] [address] * (ABNORMAL) TEG-Bypass/ECMO/Liver HN (Factor function, Platelet/Fibrin Clot Strength w/Clot Breakdown, Heparinase In All Channels) (10/27/2024 5:13 PM EDT) Citrated Kaolin Reaction Time (TEGECMOLIVER) 8.0 4.6 - 9.1 minutes 10/27/2024 6:56 PM EDT [facility] Citrated Kaolin W/Heparinase Reaction Time (TEGECMOLIVER) 6.8 4.3 - 8.3 minutes 10/27/2024 6:56 PM EDT [facility] Citrated Kaolin Maximum Amplitude (TEGECMOLIVER) 55.4 52.0 - 69.0 mm 10/27/2024 6:56 PM EDT [facility] Citrated Functional Fibrinogen W/Heparinase Maximum Amplitude(TEGEC MOLIVER) 22.9 15.0 - 34.0 mm 10/27/2024 6:56 PM EDT [facility] Citrated Rapid Teg W/Heparinase Maximum Amplitude (TEGECMOLIVER) 50.8(L) 53.0 - 69.0 mm 10/27/2024 6:56 PM EDT [facility] Citrated Kaolin w/Heparinase Percent Lysis (TEGECMOLIVER) 0.1 0.0 - 3.2 % 10/27/2024 6:56 PM EDT [facility] Whole Blood (Citrate) 10/27/2024 5:13 PM EDT 10/27/2024 5:20 PM EDT us Kemar Sahni MD LAB BLOOD ORDERABLES Final Result [facility] [address] * (ABNORMAL) Protime-INR (10/27/2024 5:13 PM EDT) Protime 15.2(H) 12.1 - 15.1 seconds 10/27/2024 5:40 PM EDT [facility] INR 1.1 0.9 - 1.1 10/27/2024 5:40 PM EDT [facility] Comment: RECOMMENDED THERAPEUTIC RANGES USING INR : Stable oral anticoagulant therapy: 2.0 - 3.0 Mechanical prosthetic heart valve: 2.5 - 3.5 Recurrent acute myocardial infarction: 2.5 - 3.5 Plasma 10/27/2024 5:13 PM EDT 10/27/2024 5:23 PM EDT Kemar Sahni MD LAB BLOOD ORDERABLES Final Result [facility] [address] [facility]. [address] * Magnesium (10/27/2024 5:13 PM EDT) Pathologist [facility] Magnesium 2.4 1.5 - 2.5 mg/dL 10/27/2024 5:53 PM EDT [facility] Plasma 10/27/2024 5:13 PM EDT 10/27/2024 5:23 PM EDT Kemar Sahni MD LAB BLOOD ORDERABLES Final Result Performing Organization Address [facility] de Phone Number [facility] [address] * (ABNORMAL) Hepatic Function Panel (10/27/2024 5:13 PM EDT) Total Bilirubin 1.7(H) 0.0 - 1.5 mg/dL 10/27/2024 5:53 PM EDT [facility] Bilirubin, Direct 1.10(H) 0.00 - 0.40 mg/dL 10/27/2024 5:53 PM EDT [facility] AST 62(H) 13 - 39 U/L 10/27/2024 5:53 PM EDT [facility] ALT 134(H) 7 - 52 U/L 10/27/2024 5:53 PM EDT [facility] Alkaline Phosphatase 27(L) 36 - 125 U/L 10/27/2024 5:53 PM EDT [facility] Total Protein 4.1(L) 6.4 - 8.9 g/dL 10/27/2024 5:53 PM EDT [facility] Albumin 2.9(L) 3.5 - 5.7 g/dL 10/27/2024 5:53 PM EDT [facility] Bilirubin, Indirect 0.60 0.00 - 1.10 mg/dL 10/27/2024 5:53 PM EDT [facility] Plasma 10/27/2024 5:13 PM EDT 10/27/2024 5:23 PM EDT us Kemar Sahni MD LAB BLOOD ORDERABLES Final Result [facility] [address] * (ABNORMAL) Renal Function Panel w/EGFR (10/27/2024 5:13 PM EDT) Sodium 142 133 - 146 mmol/L 10/27/2024 5:53 PM EDT [facility] Potassium 3.4(L) 3.5 - 5.3 mmol/L 10/27/2024 5:53 PM EDT [facility] Chloride 109 98 - 110 mmol/L 10/27/2024 5:53 PM EDT [facility] CO2 22 21 - 33 mmol/L 10/27/2024 5:53 PM EDT [facility] Anion Gap 11 3 - 16 mmol/L 10/27/2024 5:53 PM EDT [facility] BUN 61(H) 7 - 25 mg/dL 10/27/2024 5:53 PM EDT [facility] Creatinine 2.42(H) 0.60 - 1.30 mg/dL 10/27/2024 5:53 PM EDT [facility] Glucose 125(H) 70 - 100 mg/dL 10/27/2024 5:53 PM EDT [facility] Calcium 8.8 8.6 - 10.3 mg/dL 10/27/2024 5:53 PM EDT [facility] Phosphorus 5.7(H) 2.1 - 4.7 mg/dL 10/27/2024 5:53 PM EDT [facility] Albumin 2.9(L) 3.5 - 5.7 g/dL 10/27/2024 5:53 PM EDT [facility] Osmolality, Calculated 313(H) 278 - 305 mOsm/kg 10/27/2024 5:53 PM EDT [facility] EGFR 34 10/27/2024 5:53 PM EDT [facility] Comment:As [...] Sahni MD LAB BLOOD ORDERABLES Final Result [facility] [address] [place] [address], [facility] * (ABNORMAL) CBC (10/27/2024 5:13 PM EDT) WBC 4.9 3.8 - 10.8 10E3/uL 10/27/2024 6:14 PM EDT [facility] RBC 2.44(L) 4.20 - 5.80 10E6/uL 10/27/2024 6:14 PM EDT [facility] Hemoglobin 7.4(L) 13.2 - 17.1 g/dL 10/27/2024 6:14 PM EDT [facility] Hematocrit 21.4(L) 38.5 - 50.0 % 10/27/2024 6:14 PM EDT [facility] MCV 87.6 80.0 - 100.0 fL 10/27/2024 6:14 PM EDT [facility] MCH 30.3 27.0 - 33.0 pg 10/27/2024 6:14 PM EDT [facility] MCHC 34.6 32.0 - 36.0 g/dL 10/27/2024 6:14 PM EDT [facility] RDW 19.6(H) 11.0 - 15.0 % 10/27/2024 6:14 PM EDT [facility] Platelets 47(L) 140 - 400 10E3/uL 10/27/2024 6:14 PM EDT [facility] Comment: CNV Specimen checked for clots. None detected. MPV 8.1 7.5 - 11.5 fL 10/27/2024 6:14 PM EDT [facility] Whole Blood 10/27/2024 5:13 PM EDT 10/27/2024 5:23 PM EDT Kemar Sahni MD LAB BLOOD ORDERABLES Final Result [facility] [address] * (ABNORMAL) POC Glucose Monitoring Device (10/27/2024 3:57 PM EDT) Pathologist [facility] POC Glucose Monitoring Device 131(H) 70 - 100 mg/dL 10/27/2024 3:58 PM EDT [facility] Blood 10/27/2024 3:57 PM EDT 10/27/2024 3:58 PM EDT Semaj Mcnair III, MD POINT OF CARE TEST ORDERABLES Final Result [facility] [address] * (ABNORMAL) CBC, STAT (10/27/2024 2:40 PM EDT) WBC 5.8 3.8 - 10.8 10E3/uL 10/27/2024 2:54 PM EDT [facility] RBC 2.43(L) 4.20 - 5.80 10E6/uL 10/27/2024 2:54 PM EDT [facility] Hemoglobin 7.5(L) 13.2 - 17.1 g/dL 10/27/2024 2:54 PM EDT [facility] Hematocrit 21.5(L) 38.5 - 50.0 % 10/27/2024 2:54 PM EDT [facility] MCV 88.2 80.0 - 100.0 fL 10/27/2024 2:54 PM EDT [facility] MCH 30.7 27.0 - 33.0 pg 10/27/2024 2:54 PM EDT [facility] MCHC 34.8 32.0 - 36.0 g/dL 10/27/2024 2:54 PM EDT [facility] RDW 19.1(H) 11.0 - 15.0 % 10/27/2024 2:54 PM EDT [facility] Platelets 50(L) 140 - 400 10E3/uL 10/27/2024 2:54 PM EDT [facility] MPV 7.5 7.5 - 11.5 fL 10/27/2024 2:54 PM EDT [facility] Whole Blood 10/27/2024 2:40 PM EDT 10/27/2024 2:44 PM EDT us John Moreno MD LAB BLOOD ORDERABLES Final R esult [facility] [address] * (ABNORMAL) Blood Gas, Arterial, STAT (10/27/2024 2:40 PM EDT) O2 Sat, Arterial 98 10/27/2024 2:46 PM EDT [facility] FIO2 RA 10/27/2024 2:46 PM EDT [facility] pH, Arterial 7.37 7.35 - 7.45 10/27/2024 2:46 PM EDT [facility] pCO2, Arterial 35 35 - 45 mm Hg 10/27/2024 2:46 PM EDT [facility] pO2, Arterial 92 80 - 100 mm Hg 10/27/2024 2:46 PM EDT [facility] HCO3, Arterial 21(L) 22 - 26 mmol/L 10/27/2024 2:46 PM EDT [facility] CO2 Content,Arteri al 21(L) 23 - 27 mmol/L 10/27/2024 2:46 PM EDT [facility] Base Excess, Arterial -4.6(L) -2.0 - 3.0 mmol/L 10/27/2024 2:46 PM EDT [facility] %HBO2, Arterial 95.4 95.0 - 98.0 % 10/27/2024 2:46 PM EDT [facility] Carboxyhemoglo bin, Arterial 1.6 % 10/27/2024 2:46 PM EDT [facility] Comment: CARBOXYHEMOGLOBIN (CO) REFERENCE RANGES: Non-Smokers: <2 % Smokers: <8 % TOXIC: >20 % Methemoglobin, Arterial 1.0 0.0 - 1.5 % 10/27/2024 2:46 PM EDT [facility] Reduced hemoglobin, Arterial 2.1 0.0 - 5.0 % 10/27/2024 2:46 PM EDT [facility] Blood, Arterial 10/27/2024 2 :40 PM EDT 10/27/2024 2:44 PM EDT Narrative [facility] - 10/27/2024 2:46 PM EDT Post extubation John Moreno MD LAB BLOOD ORDERABLES Final R esult Performing Organization Address City/State/[facility] Co de Phone Number [facility] [address] * (ABNORMAL) POC Glucose Monitoring Device (10/27/2024 2:06 PM EDT) [facility] Signature POC Glucose Monitoring Device 134(H) 70 - 100 mg/dL 10/27/2024 2:06 PM EDT [facility] Blood 10/27/2024 2:06 PM EDT 10/27/2024 2:06 PM EDT Semaj Mcnair III, MD POINT OF CARE TEST ORDERABLES Final Result [facility] [address] [place] [address], [facility] * (ABNORMAL) Blood gas, arterial (10/27/2024 12:35 PM EDT) O2 Sat, Arterial 99 10/27/2024 12:46 PM EDT [facility] FIO2 SBT 30% 10/27/2024 12:46 PM EDT [facility] pH, Arterial 7.35 7.35 - 7.45 10/27/2024 12:46 PM EDT [facility] pCO2, Arterial 37 35 - 45 mm Hg 10/27/2024 12:46 PM EDT [facility] pO2, Arterial 182(H) 80 - 100 mm Hg 10/27/2024 12:46 PM EDT [facility] HCO3, Arterial 21(L) 22 - 26 mmol/L 10/27/2024 12:46 PM EDT [facility] CO2 Content,Arteri al 22(L) 23 - 27 mmol/L 10/27/2024 12:46 PM EDT [facility] Base Excess, Arterial -4.8(L) -2.0 - 3.0 mmol/L 10/27/2024 12:46 PM EDT [facility] %HBO2, Arterial 96.3 95.0 - 98.0 % 10/27/2024 12:46 PM EDT [facility] Carboxyhemoglo bin, Arterial 1.7 % 10/27/2024 12:46 PM EDT [facility] Comment: CARBOXYHEMOGLOBIN (CO) REFERENCE RANGES: Non-Smokers: <2 % Smokers: <8 % TOXIC: >20 % Methemoglobin, Arterial 1.4 0.0 - 1.5 % 10/27/2024 12:46 PM EDT [facility] Reduced hemoglobin, Arterial 0.6 0.0 - 5.0 % 10/27/2024 12:46 PM EDT [facility] Blood, Arterial 10/27/2024 1 2:35 PM EDT 10/27/2024 12:42 PM EDT Narrative [facility] - 10/27/2024 12:46 PM EDT Please obtain post SBT Shay Sifuentes MD LAB BLOOD ORDERABLES Final Resu lt [facility] [address] * (ABNORMAL) TEG-Bypass/ECMO/Liver HN (Factor function, Platelet/Fibrin Clot Strength w/Clot Breakdown, Heparinase In All Channels) (10/27/2024 12:07 PM EDT) [facility] Citrated Kaolin Reaction Time (TEGECMOLIVER) 7.9 4.6 - 9.1 minutes 10/27/2024 1:24 PM EDT [facility] Citrated Kaolin W/Heparinase Reaction Time (TEGECMOLIVER) 8.3 4.3 - 8.3 minutes 10/27/2024 1:24 PM EDT [facility] Citrated Kaolin Maximum Amplitude (TEGECMOLIVER) 52.0 52.0 - 69.0 mm 10/27/2024 1:24 PM EDT [facility] Citrated Functional Fibrinogen W/Heparinase Maximum Amplitude(TEGEC MOLIVER) 20.1 15.0 - 34.0 mm 10/27/2024 1:24 PM EDT [facility] Citrated Rapid Teg W/Heparinase Maximum Amplitude (TEGECMOLIVER) 49.4(L) 53.0 - 69.0 mm 10/27/2024 1:24 PM EDT [facility] Citrated Kaolin w/Heparinase Percent Lysis (TEGECMOLIVER) 0.0 0.0 - 3.2 % 10/27/2024 1:24 PM EDT [facility] Whole Blood (Citrate) 10/27/2024 12:07 PM EDT 10/27/2024 12:09 PM EDT Kemar Sahni MD LAB BLOOD ORDERABLES Final Result [facility] [address] * (ABNORMAL) POC Glucose Monitoring Device (10/27/2024 12:01 PM EDT) POC Glucose Monitoring Device 121(H) 70 - 100 mg/dL 10/27/2024 12:02 PM EDT [facility] Blood 10/27/2024 12:0 1 PM EDT 10/27/2024 12:01 PM EDT Semaj Mcnair III, MD POINT OF CARE TEST ORDERABLES Final Result Performing Organization Address [facility] Co de Phone Number [facility] [address] * (ABNORMAL) POC Glucose Monitoring Device (10/27/2024 10:59 AM EDT) POC Glucose Monitoring Device 126(H) 70 - 100 mg/dL 10/27/2024 11:10 AM EDT [facility] Blood 10/27/2024 10:5 9 AM EDT 10/27/2024 11:10 AM EDT Semaj Mcnair III, MD POINT OF CARE TEST ORDERABLES Final Result Performing Organization Address [facility] Co de Phone Number [facility] [address] * ECG 12 lead (MUSE) (10/27/2024 10:17 AM EDT) 10/27/2024 10:1 7 AM EDT Narrative MUSE - 10/27/2024 2:51 PM EDT Ventricular Rate: 91 BPM Atrial Rate: 91 BPM P-R Interval: 168 ms QRS Duration: 90 ms QT: 274 ms QTc: 337 ms P [place]: 60 degrees R [place]: -30 degrees T [place]: -15 degrees Diagnosis Line: NORMAL SINUS RHYTHM ^ LEFT AXIS DEVIATION, LEFT ANTERIOR HEMIBLOCK ^ NONSPECIFIC T WAVE CHANGE ^ ABNORMAL ECG ^ ^ Confirmed by MD ROLLY, [facility] ([id number]) on 10/27/2024 2:51:52 PM Shay Sifuentes MD ECG ORDERABLES Final Result Performing Organization Address City/[facility]/ZIP Co de Phone Number MUSE * (ABNORMAL) POC Glucose Monitoring Device (10/27/2024 10:00 AM EDT) POC Glucose Monitoring Device 121(H) 70 - 100 mg/dL 10/27/2024 10:01 AM EDT [facility] Blood 10/27/2024 10:0 0 AM EDT 10/27/2024 10:01 AM EDT Semaj Mcnair III, MD POINT OF CARE TEST ORDERABLES Final Result [facility] [address] [place] [address], [facility] * US Renal Transplant (10/27/2024 9:51 [...] US ORDERABLES Final Result * US Duplex [id number] Comp (10/27/2024 9:51 AM EDT) Anatomical Region [...] EXAM: US ABDOMEN LIMITED EXAM: US DUPLEX [id number] COMPLETE INDICATION: Post-op liver transplant COMPARISON: None [...] absent.. Pancreas: Obscured by overlying bowel gas. [place] right kidney: 12.5 cm in length. Normal [...] EXAM: US ABDOMEN LIMITED EXAM: US DUPLEX [id number] COMPLETE INDICATION: Post-op liver transplant COMPARISON: None [...] absent.. Pancreas: Obscured by overlying bowel gas. [place] right kidney: 12.5 cm in length. Normal [...] EXAM: US ABDOMEN LIMITED EXAM: US DUPLEX [id number] COMPLETE INDICATION: Post-op liver transplant COMPARISON: None [...] absent.. Pancreas: Obscured by overlying bowel gas. [place] right kidney: 12.5 cm in length. Normal [...] EXAM: US ABDOMEN LIMITED EXAM: US DUPLEX [id number] COMPLETE INDICATION: Post-op liver transplant COMPARISON: None [...] absent.. Pancreas: Obscured by overlying bowel gas. [place] right kidney: 12.5 cm in length. Normal [...] Scan (10/27/2024 9:25 AM EDT) us Scanning [facility] SCAN DOCS - NO RESULTS Final Res ult * (ABNORMAL) POC Glucose Monitoring Device (10/27/2024 9:05 AM EDT) POC Glucose Monitoring Device 118(H) 70 - 100 mg/dL 10/27/2024 9:06 AM EDT [facility] Blood 10/27/2024 9:05 AM EDT 10/27/2024 9:06 AM EDT Semaj Mcnair III, MD POINT OF CARE TEST ORDERABLES Final Result [facility] [address] [place] [address], [facility] * X-ray Portable Chest [...] - 15.1 seconds 10/27/2024 8:35 AM EDT [facility] INR 1.2(H) 0.9 - 1.1 10/27/2024 8:35 AM EDT [facility] Comment: RECOMMENDED THERAPEUTIC RANGES USING INR : Stable oral anticoagulant therapy: 2.0 - 3.0 Mechanical prosthetic heart valve: 2.5 - 3.5 Recurrent acute myocardial infarction: 2.5 - 3.5 Plasma 10/27/2024 8:16 AM EDT 10/27/2024 8:20 AM EDT us John Moreno MD LAB BLOOD ORDERABLES Final R esult [facility] [address] [place] [address], [facility] * Magnesium (10/27/2024 8:00 AM EDT) Magnesium 1.8 1.5 - 2.5 mg/dL 10/27/2024 10:50 AM EDT [facility] Plasma 10/27/2024 8:00 AM EDT 10/27/2024 10:31 AM EDT Kemar Sahni MD LAB BLOOD ORDERABLES Final Result Performing Organization Address City/State/[facility] Co de Phone Number [facility] [address] * (ABNORMAL) Renal Function Panel w/EGFR (10/27/2024 8:00 AM EDT) Sodium 142 133 - 146 mmol/L 10/27/2024 10:18 AM EDT [facility] Potassium 3.0(L) 3.5 - 5.3 mmol/L 10/27/2024 10:18 AM EDT [facility] Chloride 109 98 - 110 mmol/L 10/27/2024 10:18 AM EDT [facility] CO2 21 21 - 33 mmol/L 10/27/2024 10:18 AM EDT [facility] Anion Gap 12 3 - 16 mmol/L 10/27/2024 10:18 AM EDT [facility] BUN 59(H) 7 - 25 mg/dL 10/27/2024 10:18 AM EDT [facility] Creatinine 2.54(H) 0.60 - 1.30 mg/dL 10/27/2024 10:18 AM EDT [facility] Glucose 111(H) 70 - 100 mg/dL 10/27/2024 10:18 AM EDT [facility] Calcium 9.1 8.6 - 10.3 mg/dL 10/27/2024 10:18 AM EDT [facility] Phosphorus 5.5(H) 2.1 - 4.7 mg/dL 10/27/2024 10:18 AM EDT [facility] Albumin 3.0(L) 3.5 - 5.7 g/dL 10/27/2024 10:18 AM EDT [facility] Osmolality, Calculated 311(H) 278 - 305 mOsm/kg 10/27/2024 10:18 AM EDT [facility] EGFR 32 10/27/2024 10:18 AM EDT [facility] Comment:As [...] Sahni MD LAB BLOOD ORDERABLES Final Result [facility] [address] * (ABNORMAL) Hepatic Function Panel, STAT (10/27/2024 8:00 AM EDT) Total Bilirubin 1.3 0.0 - 1.5 mg/dL 10/27/2024 8:51 AM EDT [facility] Bilirubin, Direct 0.93(H) 0.00 - 0.40 mg/dL 10/27/2024 8:51 AM EDT [facility] AST 88(H) 13 - 39 U/L 10/27/2024 8:51 AM EDT [facility] ALT 149(H) 7 - 52 U/L 10/27/2024 8:51 AM EDT [facility] [facility] Alkaline Phosphatase 26(L) 36 - 125 U/L 10/27/2024 8:51 AM EDT [facility] Total Protein 4.0(L) 6.4 - 8.9 g/dL 10/27/2024 8:51 AM EDT [facility] Albumin 3.0(L) 3.5 - 5.7 g/dL 10/27/2024 8:51 AM EDT [facility] Bilirubin, Indirect 0.37 0.00 - 1.10 mg/dL 10/27/2024 8:51 AM EDT [facility] Plasma 10/27/2024 8:00 AM EDT 10/27/2024 8:20 AM EDT Semaj Mcnair III, MD LAB BLOOD ORDERABLE S Final Result Performing Organization Address [facility] Co de Phone Number [facility] [address] [facility]. [address] * (ABNORMAL) Lactic Acid, STAT (10/27/2024 8:00 AM EDT) Lactate 0.4(L) 0.5 - 2.2 mmol/L 10/27/2024 8:43 AM EDT [facility] Plasma 10/27/2024 8:00 AM EDT 10/27/2024 8:20 AM EDT us Semaj Mcnair III, MD LAB BLOOD ORDERABLE S Final Result Performing Organization Address [facility] de Phone Number [facility] [address] [place] [address]. [address] * (ABNORMAL) Blood Gas, Arterial, STAT (10/27/2024 8:00 AM EDT) O2 Sat, Arterial 100 10/27/2024 8:23 AM EDT [facility] pH, Arterial 7.36 7.35 - 7.45 10/27/2024 8:23 AM EDT [facility] pCO2, Arterial 37 35 - 45 mm Hg 10/27/2024 8:23 AM EDT [facility] pO2, Arterial 245(H) 80 - 100 mm Hg 10/27/2024 8:23 AM EDT [facility] HCO3, Arterial 22 22 - 26 mmol/L 10/27/2024 8:23 AM EDT [facility] CO2 Content,Arteri al 22(L) 23 - 27 mmol/L 10/27/2024 8:23 AM EDT [facility] Base Excess, Arterial -4.2(L) -2.0 - 3.0 mmol/L 10/27/2024 8:23 AM EDT [facility] %HBO2, Arterial 96.5 95.0 - 98.0 % 10/27/2024 8:23 AM EDT [facility] Carboxyhemoglo bin, Arterial 2.2 % 10/27/2024 8:23 AM EDT [facility] Comment: CARBOXYHEMOGLOBIN (CO) REFERENCE RANGES: Non-Smokers: <2 % Smokers: <8 % TOXIC: >20 % Methemoglobin, Arterial 1.2 0.0 - 1.5 % 10/27/2024 8:23 AM EDT [facility] Reduced hemoglobin, Arterial 0.0 0.0 - 5.0 % 10/27/2024 8:23 AM EDT [facility] Blood, Arterial 10/27/2024 8 :00 AM EDT 10/27/2024 8:19 AM EDT Narrative [facility] - 10/27/2024 8:23 AM EDT Specimen is beyond 15 minutes from time of collection. Results may be compromised. Review results critically. Kemar Sahni MD LAB BLOOD ORDERABLES Final Result [facility] [address] [place] [address], [facility] * (ABNORMAL) TEG-Bypass/ECMO/Liver HN (Factor function, Platelet/Fibrin Clot Strength w/Clot Breakdown, Heparinase In All Channels) (10/27/2024 8:00 AM EDT) Citrated Kaolin Reaction Time (TEGECMOLIVER) 7.8 4.6 - 9.1 minutes 10/27/2024 9:39 AM EDT [facility] Citrated Kaolin W/Heparinase Reaction Time (TEGECMOLIVER) 8.0 4.3 - 8.3 minutes 10/27/2024 9:39 AM EDT [facility] Citrated Kaolin Maximum Amplitude (TEGECMOLIVER) 52.7 52.0 - 69.0 mm 10/27/2024 9:39 AM EDT [facility] Citrated Functional Fibrinogen W/Heparinase Maximum Amplitude(TEGEC MOLIVER) 19.0 15.0 - 34.0 mm 10/27/2024 9:39 AM EDT [facility] Citrated Rapid Teg W/Heparinase Maximum Amplitude (TEGECMOLIVER) 49.5(L) 53.0 - 69.0 mm 10/27/2024 9:39 AM EDT [facility] Citrated Kaolin w/Heparinase Percent Lysis (TEGECMOLIVER) 0.0 0.0 - 3.2 % 10/27/2024 9:39 AM EDT [facility] Whole Blood (Citrate) 10/27/2024 8:00 AM EDT 10/27/2024 8:19 AM EDT Kemar Sahni MD LAB BLOOD ORDERABLES Final Result Performing Organization Address City/[facility]/ZIP Co de Phone Number [facility] [address] * (ABNORMAL) Katie-Watkins virus VCA IgG Antibody (10/27/2024 8:00 AM EDT) [facility] EBV VCA IgG Positive( A) Negative 10/27/2024 11:30 AM EDT [facility] Comment:Presence of detectab le VCA IgG antibodies. 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 EBV IGG NUM 314.00(H) 0.00 - 17.99 U/mL 10/27/2024 11:30 AM EDT [facility] Serum 10/27/2024 8:00 AM EDT 10/27/2024 8:20 AM EDT Kemar Sahni MD LAB BLOOD ORDERABLES Final Result [facility] [address] * Hemoglobin A1c (10/27/2024 8:00 AM EDT) [facility] Hemoglobin A1C 5.0 4.0 - 5.6 % 10/27/2024 11:12 AM EDT [facility] Comment: Hemoglobin [...] Organization Address [facility] Co de Phone Number [facility] [address] [facility]. [address] * (ABNORMAL) POC Glucose Monitoring Device (10/27/2024 7:59 AM EDT) Pathologist [facility] POC Glucose Monitoring Device 113(H) 70 - 100 mg/dL 10/27/2024 7:59 AM EDT [facility] Blood 10/27/2024 7:59 AM EDT 10/27/2024 7:59 AM EDT Semaj Mcnair III, MD POINT OF CARE TEST ORDERABLES Final Result Performing Organization Address [facility] Co de Phone Number [facility] [address] [facility] * X-ray Abdomen AP view (10/27/2024 [...] Units (10/27/2024 6:16 AM EDT) Product Code R1702P13 [facility] Unit Number [id number] [facility] Dispense Status Presumed Transfused_PT [facility] Blood Expiration Date [id number] HCLL Coding System [id number] HCLL Product Code I0110V41 [facility] Unit Number [id number] [facility] Dispense Status Presumed Transfused_PT [facility] Blood Expiration Date 202142410569 HCLL Coding System [id number] [facility] Blood Bank Product John Pina MD BLOOD BANK PRODUCT ORDERABLES F inal Result [facility] * Prepare Platelets, leukoreduced, 1 Units (10/27/2024 6:16 AM EDT) Product Code E8320X43 [facility] Unit Number [id number] [facility] Dispense Status Presumed Transfused_PT [facility] Blood Expiration Date [id number] HCLL Coding System [id number] [facility] Blood Bank Product Eber Quinones MD BLOOD BANK PRODUCT ORDER PAL Final Result [facility] * Prepare Cryoprecipitate, 1 Units (10/27/2024 6:16 AM EDT) Product Code P0086F23 [facility] Unit Number [id number] [facility] Dispense Status Presumed Transfused_PT [facility] Blood Expiration Date 363769473645 HCLL Coding System ESWJ497 HCLL Product Code O0662Z47 [facility]LL Unit Number [id number] [facility]LL Dispense Status Presumed Transfused_PT [facility] Blood Expiration Date 029726367652 HCLL Coding System KKPI850 [facility] Blood Bank Product Eber Quinones MD BLOOD BANK PRODUCT ORDER PAL Final Result [facility] * Prepare Fresh Frozen Plasma, 10 Units (10/27/2024 6:16 AM EDT) Product Code X0737U98 [facility] Unit Number [id number] [facility] Dispense Status Presumed Transfused_PT [facility] Blood Expiration Date HCLL Coding System GCMP020 HCLL Product Code Z9963U11 [facility]LL Unit Number [id number] HCLL Dispense Status Presumed Transfused_PT HCLL Blood Expiration Date HCLL Coding System UCEL929 HCLL Product Code V1602P13 HCLL Unit Number [id number] HCLL Dispense Status Presumed Transfused_PT [facility] Blood Expiration Date HCLL Coding System RTCQ421 HCLL Product Code K3737L12 HCLL Unit Number [id number] HCLL Dispense Status Presumed Transfused_PT [facility]LL Blood Expiration Date HCLL Coding System CGSV595 HCLL Product Code O8127A12 HCLL Unit Number [id number] HCLL Dispense Status Released from Crossmatch_RE HCLL Blood Expiration Date 395006992279 HCLL Coding System VZKJ333 HCLL Product Code S4649C73 HCLL Unit Number [id number] HCLL Dispense Status Released from Crossmatch_RE HCLL Blood Expiration Date HCLL Coding System QCFC371 HCLL Product Code F4888F91 HCLL Unit Number [id number] HCLL Dispense Status Presumed Transfused_PT HCLL Blood Expiration Date HCLL Coding System QKYR386 HCLL Product Code F1733I37 HCLL Unit Number [id number] HCLL Dispense Status Presumed Transfused_PT HCLL Blood Expiration Date HCLL Coding System VNHH399 HCLL Product Code W9941E27 HCLL Unit Number [id number] HCLL Dispense Status Presumed Transfused_PT HCLL Blood Expiration Date HCLL Coding System BDUU061 HCLL Product Code A5759T14 HCLL Unit Number [id number] HCLL Dispense Status Presumed Transfused_PT HCLL Blood Expiration Date HCLL Coding System DWTN443 HC[facility] Blood Bank Product Leandra Og MD BLOOD BANK PRODUCT ORD ERABLES Final Result [facility] * Prepare Platelets, leukoreduced, 1 Units (10/27/2024 6:16 AM EDT) Product Code F8558Y12 [facility] Unit Number [id number] HCLL Dispense Status Presumed Transfused_PT [facility] Blood Expiration Date 189388390868 HCLL Coding System QTUK373 [facility] Blood Bank Product Ben Blake MD BLOOD BANK PRODUCT ORDERABLES Final Result Performing Organization Address City/[facility] de Phone Number [facility] * Prepare Fresh Frozen Plasma (10/27/2024 6:15 AM EDT) Product Code F2343R60 [facility] Unit Number [id number] HCLL Dispense Status Presumed Transfused_PT HCLL Blood Expiration Date HCLL Coding System SMGI413 HCLL Product Code V6233S46 HCLL Unit Number [id number] HCLL Dispense Status Released from Crossmatch_RE HCLL Blood Expiration Date HCLL Coding System CRNU647 HCLL Product Code O6645P53 HCLL Unit Number [id number] HCLL Dispense Status Presumed Transfused_PT HCLL Blood Expiration Date HCLL Coding System AVLW612 HCLL Product Code H2903L02 HCLL Unit Number [id number] HCLL Dispense Status Presumed Transfused_PT HCLL Blood Expiration Date HCLL Coding System PGLX894 HCLL Product Code X3514V97 HCLL Unit Number [id number] HCLL Dispense Status Released from Crossmatch_RE HCLL Blood Expiration Date 213518404586 HCLL Coding System PTGR599 HCLL us Attending Provider Unknown BLOOD BANK PRODUCT OR DERABLES Final Result [facility] * Prepare RBC, leukoreduced (10/27/2024 6:15 AM EDT) Product Code O4287R26 [facility] Unit Number [id number] HCLL Dispense Status Presumed Transfused_PT HCLL Blood Expiration Date 608084826147 HCLL Coding System LDOY430 HCLL Product Code N9101W59 HCLL Unit Number [id number] HCLL Dispense Status Released from Crossmatch_RE HCLL Blood Expiration Date 249130916607 HCLL Coding System KTQR627 HCLL Product Code X5005Q26 HCLL Unit Number [id number] HCLL Dispense Status Released from Crossmatch_RE HCLL Blood Expiration Date 335620317251 HCLL Coding System ADNV674 HCLL Product Code O3768K62 HCLL Unit Number [id number] HCLL Dispense Status Released from Crossmatch_RE HCLL Blood Expiration Date 155516512899 HCLL Coding System IWNI290 HCLL Product Code K0506T50 HCLL Unit Number [id number] HCLL Dispense Status Released from Crossmatch_RE HCLL Blood Expiration Date 265170782062 HCLL Coding System SHSE252 HCLL us Attending Provider Unknown BLOOD BANK PRODUCT OR DERABLES Final Result [facility] * Prepare RBC, leukoreduced, 10 Units (10/27/2024 6:15 AM EDT) Product Code Z3274E07 HCLL Unit Number [id number] HCLL Dispense Status Presumed Transfused_PT HCLL Blood Expiration Date 361052181275 HCLL Coding System HWRO584 HCLL Product Code L6894T53 HCLL Unit Number [id number] HCLL Dispense Status Presumed Transfused_PT HCLL Blood Expiration Date 186873157606 HCLL Coding System KDMB958 HCLL Product Code I1057N77 HCLL Unit Number [id number] HCLL Dispense Status Presumed Transfused_PT HCLL Blood Expiration Date 647957377958 HCLL Coding System HOOX693 HCLL Product Code D9171C05 HCLL Unit Number [id number] HCLL Dispense Status Presumed Transfused_PT HCLL Blood Expiration Date 073477982709 HCLL Coding System ZHPD166 HCLL Product Code Z9485X19 HCLL Unit Number [id number] HCLL Dispense Status Presumed Transfused_PT HCLL Blood Expiration Date 981068014132 HCLL Coding System CSTO662 HCLL Product Code X2874Y77 HCLL Unit Number [id number] HCLL Dispense Status Presumed Transfused_PT HCLL Blood Expiration Date 034208181218 HCLL Coding System FAIQ136 HCLL Product Code W0974O61 HCLL Unit Number [id number] HCLL Dispense Status Presumed Transfused_PT HCLL Blood Expiration Date 809052553734 HCLL Coding System LGJA176 HCLL Product Code Y1072S75 HCLL Unit Number [id number] HCLL Dispense Status Presumed Transfused_PT HCLL Blood Expiration Date 017051761070 HCLL Coding System IMTN918 HCLL Product Code O3370K91 HCLL Unit Number [id number] HCLL Dispense Status Presumed Transfused_PT HCLL Blood Expiration Date 570035916867 HCLL Coding System IQWH568 HCLL Product Code P5870F29 HCLL Unit Number [id number] HCLL Dispense Status Presumed Transfused_PT HCLL Blood Expiration Date 808537184297 HCLL Coding System ZZWC932 HCLL Blood Bank Product us Leandra Og MD BLOOD BANK PRODUCT ORD ERABLES Final Result [facility] * Transfuse Platelets (10/27/2024 6:09 AM EDT) us Ben Blake MD NURSING TREATMENT ORDERABLES - BLOOD ADMIN Final Result * (ABNORMAL) Arterial Blood Gas Panel (10/27/2024 6:09 AM EDT) O2Sat (ABGP) 100 10/27/2024 6:17 AM EDT [facility] pH (ABGP) 7.30(L) 7.35 - 7.45 10/27/2024 6:17 AM EDT [facility] PCO2 (ABGP) 41 35 - 45 mm Hg 10/27/2024 6:17 AM EDT [facility] PO2 (ABGP) 192(H) 80 - 100 mm Hg 10/27/2024 6:17 AM EDT [facility] HCO3 (ABGP) 21(L) 22 - 26 mmol/L 10/27/2024 6:17 AM EDT [facility] CO2 Content (ABGP) 22(L) 23 - 27 mmol/L 10/27/2024 6:17 AM EDT [facility] Base Excess (ABGP) -5.7(L) -2.0 - 3.0 mmol/L 10/27/2024 6:17 AM EDT [facility] Sodium (ABGP) 138 136 - 146 mEq/L 10/27/2024 6:17 AM EDT [facility] Potassium (ABGP) 3.3(L) 3.5 - 5.0 mEq/L 10/27/2024 6:17 AM EDT [facility] Comment:In the event of in-v itro hemolysis, potassium results may be falsely elevated. Always interpret lab results in conjunction with clinical findings. If hemolysis is suspected, a serum sample may be collected for repeat assessment of potassium. Calcium, Free (ABGP) 5.28 4.50 - 5.30 mg/dL 10/27/2024 6:17 AM EDT [facility] Glucose (ABGP) 112(H) 70 - 100 mg/dL 10/27/2024 6:17 AM EDT [facility] Comment:There is interferenc e with whole blood glucose results on this method when Hematocrit is <25% or >60%. HCT (ABGP) 20.0(L) 40.0 - 52.0 % 10/27/2024 6:17 AM EDT [facility] HGB (ABGP) 6.5(L) 14.0 - 18.0 g/dL 10/27/2024 6:17 AM EDT [facility] %HBO2 (ABGP) 96.8 95.0 - 98.0 % 10/27/2024 6:17 AM EDT [facility] Carboxyhgb (ABGP) 2.1 % 6:17 AM EDT [facility] Comment: CARBOXYHEMOGLOBIN (CO) REFERENCE RANGES: Non-Smokers: <2 % Smokers: <8 % TOXIC: >20 % Methemoglobin (ABGP) 1.0 0.0 - 1.5 % 10/27/2024 6:17 AM EDT [facility] Reduced Hemoglobin (ABGP) 0.2 0.0 - 5.0 % 10/27/2024 6:17 AM EDT [facility] Lactic Acid (ABGP) 0.4(L) 0.5 - 1.6 mmol/L 10/27/2024 6:17 AM EDT [facility] Blood, Arterial 10/27/2024 6 :09 AM EDT 10/27/2024 6:14 AM EDT Result [facility] Ben Blake MD LAB BLOOD ORDERABLES Final Re sult [facility] [address] [place] [address], [facility] * Transfuse Fresh Frozen Plasma (10/27/2024 5:49 AM EDT) Result [facility] Ben Blake MD NURSING TREATMENT ORDERABLES - BLOOD ADMIN Final Result * Transfuse Cryoprecipitate (10/27/2024 4:56 AM EDT) Ben Blake MD NURSING TREATMENT ORDERABLES - BLOOD ADMIN Final Result * Transfuse Cryoprecipitate (10/27/2024 4:49 AM EDT) Ben Blake MD NURSING TREATMENT ORDERABLES - BLOOD ADMIN Final Result * (ABNORMAL) POC Glucose Monitoring Device (10/27/2024 4:46 AM EDT) [facility] POC Glucose Monitoring Device 124(H) 70 - 100 mg/dL 10/27/2024 4:47 AM EDT [facility] Blood 10/27/2024 4:46 AM EDT 10/27/2024 4:47 AM EDT Semaj Mcnair III, MD POINT OF CARE TEST ORDERABLES Final Result [facility] [address] [place] [id number], [facility] * Transfuse Platelets (10/27/2024 [...] Blood Gas Panel (10/27/2024 3:07 AM EDT) [facility] O2Sat (ABGP) 100 10/27/2024 3:21 AM EDT [facility] pH (ABGP) 7.32(L) 7.35 - 7.45 10/27/2024 3:21 AM EDT [facility] PCO2 (ABGP) 38 35 - 45 mm Hg 10/27/2024 3:21 AM EDT [facility] PO2 (ABGP) 176(H) 80 - 100 mm Hg 10/27/2024 3:21 AM EDT [facility] HCO3 (ABGP) 20(L) 22 - 26 mmol/L 10/27/2024 3:21 AM EDT [facility] CO2 Content (ABGP) 21(L) 23 - 27 mmol/L 10/27/2024 3:21 AM EDT [facility] Base Excess (ABGP) -6.0(L) -2.0 - 3.0 mmol/L 10/27/2024 3:21 AM EDT [facility] Sodium (ABGP) 138 136 - 146 mEq/L 10/27/2024 3:21 AM [facility] Potassium (ABGP) 3.0(L) 3.5 - 5.0 mEq/L 10/27/2024 3:21 AM [facility] Comment:In the event of in-v itro hemolysis, potassium results may be falsely elevated. Always interpret lab results in conjunction with clinical findings. If hemolysis is suspected, a serum sample may be collected for repeat assessment of potassium. Calcium, Free (ABGP) 5.28 4.50 - 5.30 mg/dL 10/27/2024 3:21 AM [facility] Glucose (ABGP) 108(H) 70 - 100 mg/dL 10/27/2024 3:21 AM [facility] Comment:There is interferenc e with whole blood glucose results on this method when Hematocrit is <25% or >60%. HCT (ABGP) 22.0(L) 40.0 - 52.0 % 10/27/2024 3:21 AM T [facility] HGB (ABGP) 7.3(L) 14.0 - 18.0 g/dL 10/27/2024 3:21 AM [facility] %HBO2 (ABGP) 97.3 95.0 - 98.0 % 10/27/2024 3:21 AM [facility] Carboxyhgb (ABGP) 1.9 % 025 3:21 AM [facility] Comment: CARBOXYHEMOGLOBIN (CO) REFERENCE RANGES: Non-Smokers: <2 % Smokers: <8 % TOXIC: >20 % Methemoglobin (ABGP) 0.8 0.0 - 1.5 % 10/27/2024 3:21 AM EDT [facility] Reduced Hemoglobin (ABGP) 0.0 0.0 - 5.0 % 10/27/2024 3:21 AM [facility] Lactic Acid (ABGP) 0.3(L) 0.5 - 1.6 mmol/L 10/27/2024 3:21 AM [facility] Blood, Arterial 10/27/2024 3 :07 AM EDT 10/27/2024 3:14 AM EDT us Ben Blake MD LAB BLOOD ORDERABLES Final Re sult [facility] [address] [place] [address], [facility] * Surgical Pathology Exam (10/27/2024 2:38 AM EDT) Tissue LEFT KIDNEY STRUCTURE / Unknown 10/27/2024 2:38 AM EDT Narrative [facility] - 10/27/2024 12:00 AM EDT CASE: [id number] PATIENT: BLAIR GILBERT Clinical History: Transplant kidney with bile duct reconstruction Pre-Operative Diagnosis: Acute kidney injury superimposed on CKD Post-Operative Diagnosis: None Given Specimen(s) Submitted: A. baseline renal biopsy ; B. right lobe liver biopsy; C. left lobe liver biopsy CPT Code(s): 05195 X 1; 64672 X 2; 88100 X 4 Additional Information: FINAL DIAGNOSIS: A. [...] submitted between blue biopsy sponges in cassette [facility] [email or web address]]-[id number] B1-B2. (NAA Mckeon/ns) C. Received in formalin, labeled with the patient's name Blair Gilbert and left lobe liver biopsy are two green-georges tissue cores measuring 1.2 and 1.4 cm in length, each with a diameter of 0.1 cm, which are entirely submitted between blue biopsy sponges in cassette [facility] [[email or web address]]-[id number] C1-C2. (NAA Mckeon/ns) Microscopic Description: I, the attending pathologist, have personally reviewed all prosector/resident work and pathology slides to determine final diagnosis. Control Materials Reacted Appropriately. Final Diagnosis performed by CLARE FALL MD Pathologist Electronically signed 10/31/2024 01:07:09 PM The Pathologist signing this report is located at [facility], [address] [place] [address], [id number], , CLIA ID: [id number] ADDENDUM: A. Kidney, allograft, baseline, wedge biopsy: [...] signing this report is located at [facility], [address] [place] [address], [id number], , CLIA ID: [id number] us Kemar Sahni MD PATHOLOGY/CYTOLOGY ORDERABL ES Edited Result - Final [facility] * Anaerobic culture (10/27/2024 2:15 AM EDT) Culture Result No Anaerobes Isolated in 5 Days [facility] Fluid SPECIMEN FROM KIDNEY / Unknown 10/27/2024 2:15 AM EDT 10/27/2024 4:24 AM EDT Narrative [facility] - 10/31/2024 11:43 AM EDT 1) perfusate us Semaj Mncair III, MD MICROBIOLOGY - GENE RAL ORDERABLES Final Result [facility] [address] [facility]. [address] * Fungus culture (10/27/2024 2:15 AM EDT) Culture Result No Fungus Isolated At 4 Weeks [facility] Fluid SPECIMEN FROM KIDNEY / Unknown 10/27/2024 2:15 AM EDT 10/27/2024 4:24 AM EDT Narrative [facility] - 11/24/2024 7:52 AM EDT 1) perfusate us Semaj Mcnair III, MD MICROBIOLOGY - GENE RAL ORDERABLES Final Result Performing Organization Address City/[facility] Co de Phone Number [facility] [address] [facility]. [address] * Routine Culture plus Stain (10/27/2024 2:15 AM EDT) Gram Stain Result No Polymorphonuclear Leukocytes Seen [facility] Gram Stain Result No Organisms Seen; [facility] Culture Result No Growth After 3 Days [facility] Fluid SPECIMEN FROM KIDNEY / Unknown 10/27/2024 2:15 AM EDT 10/27/2024 4:24 AM EDT Narrative [facility] - 10/30/2024 9:26 AM EDT 1) perfusate us Semaj Mcnair III, MD MICROBIOLOGY - GENE RAL ORDERABLES Final Result [facility] [address] [place] [address], [facility] * Transfuse Platelets Transfusion Rate: Per [...] a Baseline TEG) (10/27/2024 1:51 AM EDT) [facility] Citrated Kaolin Reaction Time (TEGHEPARINASE) 10.6(H) 4.6 - 9.1 minutes 10/27/2024 2:44 AM EDT [facility] Citrated Rapid Teg Maximum Amplitude (TEGHEPARINASE) 42.3(L) 52.0 - 70.0 mm 10/27/2024 2:44 AM EDT [facility] Citrated Functional Fibrinogen Maximum Amplitude (TEGHEPARINASE) 15.0 15.0 - 32.0 mm 10/27/2024 2:44 AM EDT [facility] Citrated Kaolin W/Heparinase Reaction Time (TEGHEPARINASE) 10.5(H) 4.3 - 8.3 minutes 10/27/2024 2:44 AM EDT [facility] Citrated Kaolin K-Time (TEGHEPARINASE) 2.9(A) 0.8 - 2.1 minutes 10/27/2024 2:44 AM EDT [facility] Citrated Kaolin Angle (TEGHEPARINASE) 60.4(A) 63.0 - 78.0 degrees 10/27/2024 2:44 AM EDT [facility] Citrated Kaolin Maximum Amplitude (TEGHEPARINASE) 42.9(L) 52.0 - 69.0 mm 10/27/2024 2:44 AM EDT [facility] Citrated Functional Fibrinogen- Fibrinogen Level (TEGHEPARINASE) 273.7(L) 278.0 - 581.0 mg/dL 10/27/2024 2:44 AM EDT [facility] Whole Blood (Citrate) 10/27/2024 1:51 AM EDT 10/27/2024 2:03 AM EDT John Pina MD LAB BLOOD ORDERABLES Final Resu lt Performing Organization Address [facility] Co de Phone Number [facility] [address] * (ABNORMAL) POC Glucose Monitoring Device (10/27/2024 1:50 AM EDT) POC Glucose Monitoring Device 121(H) 70 - 100 mg/dL 10/27/2024 1:51 AM EDT [facility] Blood 10/27/2024 1:50 AM EDT 10/27/2024 1:51 AM EDT Semaj Mcnair III, MD POINT OF CARE TEST ORDERABLES Final Result Performing Organization Address [facility] Co de Phone Number [facility] [address] * Transfuse Cryoprecipitate Transfusion Rate: Per dept routine (10/27/2024 1:25 AM EDT) John Pina MD NURSING TREATMENT ORDERABLES - BLOOD ADMIN Final Result Performing Organization Address [facility] Co de Phone Number EXTERNAL * Transfuse Cryoprecipitate Transfusion Rate: Per dept routine, 1 Units (10/27/2024 1:25 AM EDT) John Pina MD NURSING TREATMENT ORDERABLES - BLOOD ADMIN Final Result Performing Organization Address [facility] Co de Phone Number EXTERNAL * (ABNORMAL) POC Glucose Monitoring Device (10/27/2024 1:21 AM EDT) POC Glucose Monitoring Device 123(H) 70 - 100 mg/dL 10/27/2024 1:22 AM EDT [facility] Blood 10/27/2024 1:21 AM EDT 10/27/2024 1:21 AM EDT us Semaj Mcnair III, MD POINT OF CARE TEST ORDERABLES Final Result Performing Organization Address City/[facility] Co de Phone Number [facility] [address] * Transfuse Fresh Frozen Plasma Transfusion Rate: Per dept routine (10/27/2024 1:03 AM EDT) us John Pina MD NURSING TREATMENT ORDERABLES - BLOOD ADMIN Final Result Performing Organization Address [facility] de Phone Number EXTERNAL * Transfuse Fresh Frozen Plasma Transfusion Rate: Per dept routine, 1 Units (10/27/2024 1:03 AM EDT) us John Pina MD NURSING TREATMENT ORDERABLES - BLOOD ADMIN Final Result Performing Organization Address [facility] de Phone Number EXTERNAL * Calcium Free, Serum (10/27/2024 12:13 AM EDT) Free Calcium, Ser 5.20 4.40 - 5.40 mg/dL 10/27/2024 12:37 AM EDT [facility] Comment:Free calcium levels vary inversely with pH by approximately 5% for each 0.1 unit of pH change. Assay results have been normalized to pH = 7.40. Serum 10/27/2024 12:1 3 AM EDT 10/27/2024 12:29 AM EDT Narrative [facility] - 10/27/2024 12:37 AM EDT This test has been developed and its performance characteristics determined by [facility] which is certified under [...] Resu lt Performing Organization Address [facility]/ZIP Co de Phone Number [facility] [address] [place] [address], [facility] * (ABNORMAL) Blood Gas, Arterial, STAT (10/27/2024 12:13 AM EDT) O2 Sat, Arterial 100 10/27/2024 12:23 AM EDT [facility] FIO2 30 10/27/2024 12:23 AM EDT [facility] pH, Arterial 7.32(L) 7.35 - 7.45 10/27/2024 12:23 AM EDT [facility] pCO2, Arterial 37 35 - 45 mm Hg 10/27/2024 12:23 AM EDT [facility] pO2, Arterial 137(H) 80 - 100 mm Hg 10/27/2024 12:23 AM EDT [facility] HCO3, Arterial 20(L) 22 - 26 mmol/L 10/27/2024 12:23 AM EDT [facility] CO2 Content,Arteri al 20(L) 23 - 27 mmol/L 10/27/2024 12:23 AM EDT [facility] Base Excess, Arterial -6.4(L) -2.0 - 3.0 mmol/L 10/27/2024 12:23 AM EDT [facility] %HBO2, Arterial 96.2 95.0 - 98.0 % 10/27/2024 12:23 AM EDT [facility] Carboxyhemoglo bin, Arterial 1.9 % 10/27/2024 12:23 AM EDT [facility] Comment: CARBOXYHEMOGLOBIN (CO) REFERENCE RANGES: Non-Smokers: <2 % Smokers: <8 % TOXIC: >20 % Methemoglobin, Arterial 1.5 0.0 - 1.5 % 10/27/2024 12:23 AM EDT [facility] Reduced hemoglobin, Arterial 0.4 0.0 - 5.0 % 10/27/2024 12:23 AM EDT [facility] Blood, Arterial 10/27/2024 1 2:13 AM EDT 10/27/2024 12:18 AM EDT us John Pina MD LAB BLOOD ORDERABLES Final Resu lt [facility] [address] * (ABNORMAL) TEG-Bypass/ECMO/Liver HN (Factor function, Platelet/Fibrin Clot Strength w/Clot Breakdown, Heparinase In All Channels) (10/27/2024 12:13 AM EDT) Citrated Kaolin Reaction Time (TEGECMOLIVER) 9.1 4.6 - 9.1 minutes 10/27/2024 1:43 AM EDT [facility] Citrated Kaolin W/Heparinase Reaction Time (TEGECMOLIVER) 9.7(H) 4.3 - 8.3 minutes 10/27/2024 1:43 AM EDT [facility] Citrated Kaolin Maximum Amplitude (TEGECMOLIVER) <40.0(L) 52.0 - 69.0 mm 10/27/2024 1:43 AM EDT [facility] Citrated Functional Fibrinogen W/Heparinase Maximum Amplitude(TEGEC MOLIVER) 11.9(L) 15.0 - 34.0 mm 10/27/2024 1:43 AM EDT [facility] Citrated Rapid Teg W/Heparinase Maximum Amplitude (TEGECMOLIVER) 31.6(L) 53.0 - 69.0 mm 10/27/2024 1:43 AM EDT [facility] Citrated Kaolin w/Heparinase Percent Lysis (TEGECMOLIVER) 0.0 0.0 - 3.2 % 10/27/2024 1:43 AM EDT [facility] Whole Blood (Citrate) 10/27/2024 12:13 AM EDT 10/27/2024 12:18 AM EDT us Kemar Sahni MD LAB BLOOD ORDERABLES Final Result [facility] [address] [place] [address], [facility] * (ABNORMAL) Lactic Acid (10/27/2024 12:13 AM EDT) Lactate 0.2(L) 0.5 - 2.2 mmol/L 10/27/2024 12:59 AM EDT [facility] Plasma 10/27/2024 12:1 3 AM EDT 10/27/2024 12:31 AM EDT Kemar Sahni MD LAB BLOOD ORDERABLES Final Result Performing Organization Address City/[facility] Co de Phone Number [facility] [address] * Magnesium (10/27/2024 12:13 AM EDT) Magnesium 1.8 1.5 - 2.5 mg/dL 10/27/2024 12:52 AM EDT [facility] Plasma 10/27/2024 12:1 3 AM EDT 10/27/2024 12:29 AM EDT Kemar Sahni MD LAB BLOOD ORDERABLES Final Result Performing Organization Address [facility] de Phone Number [facility] [address] * (ABNORMAL) Hepatic Function Panel (10/27/2024 12:13 AM EDT) Total Bilirubin 1.6(H) 0.0 - 1.5 mg/dL 10/27/2024 12:52 AM EDT [facility] Bilirubin, Direct 1.17(H) 0.00 - 0.40 mg/dL 10/27/2024 12:52 AM EDT [facility] AST 157(H) 13 - 39 U/L 10/27/2024 12:52 AM EDT [facility] ALT 261(H) 7 - 52 U/L 10/27/2024 12:52 AM EDT [facility] Alkaline Phosphatase 26(L) 36 - 125 U/L 10/27/2024 12:52 AM EDT [facility] Total Protein 3.8(L) 6.4 - 8.9 g/dL 10/27/2024 12:52 AM EDT [facility] Albumin 2.8(L) 3.5 - 5.7 g/dL 10/27/2024 12:52 AM EDT [facility] Bilirubin, Indirect 0.43 0.00 - 1.10 mg/dL 10/27/2024 12:52 AM EDT [facility] Plasma 10/27/2024 12:1 3 AM EDT 10/27/2024 12:29 AM EDT Kemar Sahni MD LAB BLOOD ORDERABLES Final Result Performing Organization Address [facility] de Phone Number [facility] [address] [facility] * (ABNORMAL) Protime-INR (10/27/2024 12:13 AM EDT) Protime 18.6(H) 12.1 - 15.1 seconds 10/27/2024 12:43 AM EDT [facility] INR 1.5(H) 0.9 - 1.1 10/27/2024 12:43 AM EDT [facility] Comment: RECOMMENDED THERAPEUTIC RANGES USING INR : Stable oral anticoagulant therapy: 2.0 - 3.0 Mechanical prosthetic heart valve: 2.5 - 3.5 Recurrent acute myocardial infarction: 2.5 - 3.5 Plasma 10/27/2024 12:1 3 AM EDT 10/27/2024 12:29 AM EDT Kemar Sahni MD LAB BLOOD ORDERABLES Final Result Performing Organization Address [facility] Co de Phone Number [facility] [address] [facility] * (ABNORMAL) CBC (10/27/2024 12:13 AM EDT) WBC 5.0 3.8 - 10.8 10E3/uL 10/27/2024 12:59 AM EDT [facility] RBC 2.70(L) 4.20 - 5.80 10E6/uL 10/27/2024 12:59 AM EDT [facility] Hemoglobin 8.5(L) 13.2 - 17.1 g/dL 10/27/2024 12:59 AM EDT [facility] Hematocrit 23.9(L) 38.5 - 50.0 % 10/27/2024 12:59 AM EDT [facility] MCV 88.5 80.0 - 100.0 fL 10/27/2024 12:59 AM EDT [facility] MCH 31.5 27.0 - 33.0 pg 10/27/2024 12:59 AM EDT [facility] MCHC 35.6 32.0 - 36.0 g/dL 10/27/2024 12:59 AM EDT [facility] RDW 20.6(H) 11.0 - 15.0 % 10/27/2024 12:59 AM EDT [facility] Platelets 35(L) 140 - 400 10E3/uL 10/27/2024 12:59 AM EDT [facility] Comment: CNV Specimen checked for clots. None detected. MPV 7.6 7.5 - 11.5 fL 10/27/2024 12:59 AM EDT [facility] Whole Blood 10/27/2024 12:1 3 AM EDT 10/27/2024 12:29 AM EDT us Kemar Sahni MD LAB BLOOD ORDERABLES Final Result [facility] [address] [place] [address], [facility] * (ABNORMAL) Renal Function Panel w/EGFR (10/27/2024 12:13 AM EDT) Sodium 141 133 - 146 mmol/L 10/27/2024 12:52 AM EDT [facility] Potassium 3.2(L) 3.5 - 5.3 mmol/L 10/27/2024 12:52 AM EDT [facility] Chloride 109 98 - 110 mmol/L 10/27/2024 12:52 AM EDT [facility] CO2 21 21 - 33 mmol/L 10/27/2024 12:52 AM EDT [facility] Anion Gap 11 3 - 16 mmol/L 10/27/2024 12:52 AM EDT [facility] BUN 64(H) 7 - 25 mg/dL 10/27/2024 12:52 AM EDT [facility] Creatinine 2.58(H) 0.60 - 1.30 mg/dL 10/27/2024 12:52 AM EDT [facility] Glucose 126(H) 70 - 100 mg/dL 10/27/2024 12:52 AM EDT [facility] Calcium 8.9 8.6 - 10.3 mg/dL 10/27/2024 12:52 AM EDT [facility] Phosphorus 5.3(H) 2.1 - 4.7 mg/dL 10/27/2024 12:52 AM EDT [facility] Albumin 2.8(L) 3.5 - 5.7 g/dL 10/27/2024 12:52 AM EDT [facility] Osmolality, Calculated 312(H) 278 - 305 mOsm/kg 10/27/2024 12:52 AM EDT [facility] EGFR 31 10/27/2024 12:52 AM EDT [facility] Comment:As [...] Sahni MD LAB BLOOD ORDERABLES Final Result [facility] [address] [place] [address], [facility] * (ABNORMAL) POC Glucose Monitoring Device (10/27/2024 12:08 AM EDT) POC Glucose Monitoring Device 121(H) 70 - 100 mg/dL 10/27/2024 12:08 AM EDT [facility] Blood 10/27/2024 12:0 8 AM EDT 10/27/2024 12:08 AM EDT Semaj Mcnair III, MD POINT OF CARE TEST ORDERABLES Final Result Performing Organization Address City/[facility] Co de Phone Number [facility] [address] [place] [address] * (ABNORMAL) POC Glucose Monitoring Device (10/26/2024 11:15 PM EDT) [facility] POC Glucose Monitoring Device 120(H) 70 - 100 mg/dL 10/26/2024 11:15 PM EDT [facility] Blood 10/26/2024 11:1 5 PM EDT 10/26/2024 11:15 PM EDT Semaj Mcnair III, MD POINT OF CARE TEST ORDERABLES Final Result Performing Organization Address [facility] Co de Phone Number [address] * (ABNORMAL) TEG-Bypass/ECMO/Liver HN (Factor function, Platelet/Fibrin Clot Strength w/Clot Breakdown, Heparinase In All Channels) (10/26/2024 10:36 PM EDT) Citrated Kaolin Reaction Time (TEGECMOLIVER) 10.0(H) 4.6 - 9.1 minutes 10/26/2024 11:53 PM EDT [facility] Citrated Kaolin W/Heparinase Reaction Time (TEGECMOLIVER) 10.2(H) 4.3 - 8.3 minutes 10/26/2024 11:53 PM EDT [facility] Citrated Kaolin Maximum Amplitude (TEGECMOLIVER) <40.0(L) 52.0 - 69.0 mm 10/26/2024 11:53 PM EDT [facility] Citrated Functional Fibrinogen W/Heparinase Maximum Amplitude(TEGEC MOLIVER) 11.3(L) 15.0 - 34.0 mm 10/26/2024 11:53 PM EDT [facility] Citrated Rapid Teg W/Heparinase Maximum Amplitude (TEGECMOLIVER) 41.8(L) 53.0 - 69.0 mm 10/26/2024 11:53 PM EDT [facility] Citrated Kaolin w/Heparinase Percent Lysis (TEGECMOLIVER) 0.0 0.0 - 3.2 % 10/26/2024 11:53 PM EDT [facility] Whole Blood (Citrate) 10/26/2024 10:36 PM EDT 10/26/2024 10:43 PM EDT Kemar Sahni MD LAB BLOOD ORDERABLES Final Result Performing Organization Address [facility]/ZIP Co de Phone Number [facility] [address] [facility] * (ABNORMAL) POC Glucose Monitoring Device (10/26/2024 10:14 PM EDT) POC Glucose Monitoring Device 124(H) 70 - 100 mg/dL 10/26/2024 11:11 PM EDT [facility] Blood 10/26/2024 10:1 4 PM EDT 10/26/2024 11:11 PM EDT Semaj Mcnair III, MD POINT OF CARE TEST ORDERABLES Final Result [facility] [address] [facility] * (ABNORMAL) POC Glucose Monitoring Device (10/26/2024 9:16 PM EDT) POC Glucose Monitoring Device 119(H) 70 - 100 mg/dL 10/26/2024 9:18 PM EDT [facility] Blood 10/26/2024 9:16 PM EDT 10/26/2024 9:18 PM EDT us Semaj Mcnair III, MD POINT OF CARE TEST ORDERABLES Final Result Performing Organization Address City/[facility]/ZIP Co de Phone Number [facility] [address] * (ABNORMAL) POC Glucose Monitoring Device (10/26/2024 8:05 PM EDT) POC Glucose Monitoring Device 113(H) 70 - 100 mg/dL 10/26/2024 8:06 PM EDT [facility] Blood 10/26/2024 8:05 PM EDT 10/26/2024 8:06 PM EDT us Semaj Mcnair III, MD POINT OF CARE TEST ORDERABLES Final Result Performing Organization Address [facility] Co de Phone Number [facility] [address] [facility] * (ABNORMAL) POC Glucose Monitoring Device (10/26/2024 7:02 PM EDT) POC Glucose Monitoring Device 111(H) 70 - 100 mg/dL 10/26/2024 7:03 PM EDT [facility] Blood 10/26/2024 7:02 PM EDT 10/26/2024 7:03 PM EDT Semaj Mcnair III, MD POINT OF CARE TEST ORDERABLES Final Result Performing Organization Address City/[facility]/ZIP Co de Phone Number [facility] [address] [facility] [place]. [address] * Transfuse Cryoprecipitate Transfusion Rate: Per dept routine (10/26/2024 6:39 PM EDT) us John Pina MD NURSING TREATMENT ORDERABLES - BLOOD ADMIN Final Result EXTERNAL * Transfuse Cryoprecipitate Transfusion Rate: Per dept routine, 1 Units (10/26/2024 6:39 PM EDT) us John Pina MD NURSING TREATMENT ORDERABLES - BLOOD ADMIN Final Result Performing Organization Address [facility] Co de Phone Number EXTERNAL * (ABNORMAL) POC Glucose Monitoring Device (10/26/2024 6:33 PM EDT) POC Glucose Monitoring Device 110(H) 70 - 100 mg/dL 10/26/2024 6:34 PM EDT [facility] Blood 10/26/2024 6:33 PM EDT 10/26/2024 6:34 PM EDT us Semaj Mcnair III, MD POINT OF CARE TEST ORDERABLES Final Result Performing Organization Address [facility] Co de Phone Number [facility] [address] [facility] * Transfuse Cryoprecipitate Transfusion Rate: Per dept routine (10/26/2024 6:22 PM EDT) us John Pina MD NURSING TREATMENT ORDERABLES - BLOOD ADMIN Final Result Performing Organization Address [facility] de Phone Number EXTERNAL * Transfuse Cryoprecipitate Transfusion Rate: Per dept routine, 1 Units (10/26/2024 6:22 PM EDT) us John Pina MD NURSING TREATMENT ORDERABLES - BLOOD ADMIN Final Result Performing Organization Address [facility] de Phone Number EXTERNAL * (ABNORMAL) POC Glucose Monitoring Device (10/26/2024 6:17 PM EDT) POC Glucose Monitoring Device 104(H) 70 - 100 mg/dL 10/26/2024 6:18 PM EDT [facility] Blood 10/26/2024 6:17 PM EDT 10/26/2024 6:18 PM EDT us Semaj Mcnair III, MD POINT OF CARE TEST ORDERABLES Final Result Performing Organization Address [facility] Co de Phone Number [facility] [address] * (ABNORMAL) POC Glucose Monitoring Device (10/26/2024 4:58 PM EDT) [facility] POC Glucose Monitoring Device 115(H) 70 - 100 mg/dL 10/26/2024 4:59 PM EDT [facility] Blood 10/26/2024 4:58 PM EDT 10/26/2024 4:58 PM EDT Semaj Mcnair III, MD POINT OF CARE TEST ORDERABLES Final Result Performing Organization Address [facility] de Phone Number [facility] [address] [place] [address] * (ABNORMAL) Calcium Free, Serum (10/26/2024 4:42 PM EDT) [facility] Free Calcium, Ser 5.67(H) 4.40 - 5.40 mg/dL 10/26/2024 4:55 PM EDT [facility] Comment:Free calcium levels vary inversely with pH by approximately 5% for each 0.1 unit of pH change. Assay results have been normalized to pH = 7.40. Serum 10/26/2024 4:42 PM EDT 10/26/2024 4:47 PM EDT Narrative [facility] - 10/26/2024 4:55 PM EDT This test has been developed and its performance characteristics determined by [facility] which is certified under [...] Resu lt Performing Organization Address [facility] Co de Phone Number [facility] [address] [place] [address] * Repeat Crossmatch (Recipient Sample) (10/26/2024 4:42 PM EDT) [facility] Repeat Cx - Recipient The request and specimen(s) for this test have been received and transported to the [facility] at [address] [place] [address]. The [facility] will report results directly to the client. 10/26/2024 4:49 PM EDT [facility] Whole Blood 10/26/2024 4:42 PM EDT 10/26/2024 4:49 PM EDT Narrative [facility] - 10/26/2024 4:49 PM EDT To be sent to [facility] for Donor UNOS#[id number] cross match with Blair Gilbert Sveta Judge MD LAB BLOOD ORDERABLES Final Resu lt [facility] [address] [facility] * (ABNORMAL) Lactic Acid (10/26/2024 4:42 PM EDT) Lactate 0.3(L) 0.5 - 2.2 mmol/L 10/26/2024 5:19 PM EDT [facility] Plasma 10/26/2024 4:42 PM EDT 10/26/2024 4:47 PM EDT Kemar Sahni MD LAB BLOOD ORDERABLES Final Result Performing Organization Address City/[facility]/ZIP Co de Phone Number [facility] [address] [facility] * Magnesium (10/26/2024 4:42 PM EDT) Magnesium 2.0 1.5 - 2.5 mg/dL 10/26/2024 5:24 PM EDT [facility] Plasma 10/26/2024 4:42 PM EDT 10/26/2024 4:47 PM EDT Kemar Sahni MD LAB BLOOD ORDERABLES Final Result [facility] [address] [facility] * (ABNORMAL) Hepatic Function Panel (10/26/2024 4:42 PM EDT) Total Bilirubin 2.3(H) 0.0 - 1.5 mg/dL 10/26/2024 5:24 PM EDT [facility] Bilirubin, Direct 1.85(H) 0.00 - 0.40 mg/dL 10/26/2024 5:24 PM EDT [facility] AST 374(H) 13 - 39 U/L 10/26/2024 5:24 PM EDT [facility] ALT 458(H) 7 - 52 U/L 10/26/2024 5:24 PM EDT [facility] Alkaline Phosphatase 39 36 - 125 U/L 10/26/2024 5:24 PM EDT [facility] Total Protein 3.8(L) 6.4 - 8.9 g/dL 10/26/2024 5:24 PM EDT [facility] Albumin 3.0(L) 3.5 - 5.7 g/dL 10/26/2024 5:24 PM EDT [facility] Bilirubin, Indirect 0.45 0.00 - 1.10 mg/dL 10/26/2024 5:24 PM EDT [facility] Plasma 10/26/2024 4:42 PM EDT 10/26/2024 4:47 PM EDT Kemar Sahni MD LAB BLOOD ORDERABLES Final Result [facility] [address] * (ABNORMAL) Protime-INR (10/26/2024 4:42 PM EDT) Protime 20.3(H) 12.1 - 15.1 seconds 10/26/2024 5:12 PM EDT [facility] INR 1.7(H) 0.9 - 1.1 10/26/2024 5:12 PM EDT [facility] Comment: RECOMMENDED THERAPEUTIC RANGES USING INR : Stable oral anticoagulant therapy: 2.0 - 3.0 Mechanical prosthetic heart valve: 2.5 - 3.5 Recurrent acute myocardial infarction: 2.5 - 3.5 Plasma 10/26/2024 4:42 PM EDT 10/26/2024 4:47 PM EDT Kemar Sahni MD LAB BLOOD ORDERABLES Final Result [facility] [address] [place] [address], [facility] * (ABNORMAL) CBC (10/26/2024 4:42 PM EDT) WBC 10.0 3.8 - 10.8 10E3/uL 10/26/2024 5:00 PM EDT [facility] RBC 3.44(L) 4.20 - 5.80 10E6/uL 10/26/2024 5:00 PM EDT [facility] Hemoglobin 10.5(L) 13.2 - 17.1 g/dL 10/26/2024 5:00 PM EDT [facility] Hematocrit 30.2(L) 38.5 - 50.0 % 10/26/2024 5:00 PM EDT [facility] MCV 87.7 80.0 - 100.0 fL 10/26/2024 5:00 PM EDT [facility] MCH 30.6 27.0 - 33.0 pg 10/26/2024 5:00 PM EDT [facility] MCHC 34.8 32.0 - 36.0 g/dL 10/26/2024 5:00 PM EDT [facility] RDW 20.1(H) 11.0 - 15.0 % 10/26/2024 5:00 PM EDT [facility] Platelets 48(L) 140 - 400 10E3/uL 10/26/2024 5:00 PM EDT [facility] Comment:Specimen checked for clots. None detected. MPV 7.9 7.5 - 11.5 fL 10/26/2024 5:00 PM EDT [facility] Whole Blood 10/26/2024 4:42 PM EDT 10/26/2024 4:47 PM EDT us Kemar Sahni MD LAB BLOOD ORDERABLES Final Result [facility] [address] [place] [address], [facility] * (ABNORMAL) Renal Function Panel w/EGFR (10/26/2024 4:42 PM EDT) Sodium 142 133 - 146 mmol/L 10/26/2024 5:24 PM EDT [facility] Potassium 3.3(L) 3.5 - 5.3 mmol/L 10/26/2024 5:24 PM EDT [facility] Chloride 109 98 - 110 mmol/L 10/26/2024 5:24 PM EDT [facility] CO2 23 21 - 33 mmol/L 10/26/2024 5:24 PM EDT [facility] Anion Gap 10 3 - 16 mmol/L 10/26/2024 5:24 PM EDT [facility] BUN 63(H) 7 - 25 mg/dL 10/26/2024 5:24 PM EDT [facility] Creatinine 2.85(H) 0.60 - 1.30 mg/dL 10/26/2024 5:24 PM EDT [facility] Glucose 127(H) 70 - 100 mg/dL 10/26/2024 5:24 PM EDT [facility] Calcium 8.9 8.6 - 10.3 mg/dL 10/26/2024 5:24 PM EDT [facility] Phosphorus 4.4 2.1 - 4.7 mg/dL 10/26/2024 5:24 PM EDT [facility] Albumin 3.0(L) 3.5 - 5.7 g/dL 10/26/2024 5:24 PM EDT [facility] Osmolality, Calculated 314(H) 278 - 305 mOsm/kg 10/26/2024 5:24 PM EDT [facility] EGFR 28 10/26/2024 5:24 PM EDT [facility] Comment:As [...] BLOOD ORDERABLES Final Result Performing Organization Address City/[facility]/ZIP Co de Phone Number [facility] [address] * (ABNORMAL) POC Glucose Monitoring Device (10/26/2024 3:54 PM EDT) POC Glucose Monitoring Device 126(H) 70 - 100 mg/dL 10/26/2024 3:55 PM EDT [facility] Blood 10/26/2024 3:54 PM EDT 10/26/2024 3:55 PM EDT Semaj Mcnair III, MD POINT OF CARE TEST ORDERABLES Final Result Performing Organization Address City/[facility]/ZIP Co de Phone Number [facility] [address] [facility] * (ABNORMAL) POC Glucose Monitoring Device (10/26/2024 3:06 PM EDT) POC Glucose Monitoring Device 144(H) 70 - 100 mg/dL 10/26/2024 3:14 PM EDT [facility] Blood 10/26/2024 3:06 PM EDT 10/26/2024 3:13 PM EDT Semaj Mcnair III, MD POINT OF CARE TEST ORDERABLES Final Result Performing Organization Address City/[facility]/ZIP Co de Phone Number [facility] [address] [place] [address], [facility] * (ABNORMAL) TEG-Bypass/ECMO/Liver HN (Factor function, Platelet/Fibrin Clot Strength w/Clot Breakdown, Heparinase In All Channels) (10/26/2024 3:03 PM EDT) [facility] Citrated Kaolin Reaction Time (TEGECMOLIVER) 8.2 4.6 - 9.1 minutes 10/26/2024 4:43 PM EDT [facility] [employer] Kaolin W/Heparinase Reaction Time (TEGECMOLIVER) 8.2 4.3 - 8.3 minutes 10/26/2024 4:43 PM EDT [facility] [employer] Kaolin Maximum Amplitude (TEGECMOLIVER) 41.7(L) 52.0 - 69.0 mm 10/26/2024 4:43 PM EDT [facility] Cit[facility] Functional Fibrinogen W/Heparinase Maximum Amplitude(TEGEC MOLIVER) 11.4(L) 15.0 - 34.0 mm 10/26/2024 4:43 PM EDT [facility] Rapid Teg W/Heparinase Maximum Amplitude (TEGECMOLIVER) 38.6(L) 53.0 - 69.0 mm 10/26/2024 4:43 PM EDT [facility] Citrated Kaolin w/Heparinase Percent Lysis (TEGECMOLIVER) 0.0 0.0 - 3.2 % 10/26/2024 4:43 PM EDT [facility] Whole Blood (Citrate) 10/26/2024 3:03 PM EDT 10/26/2024 3:10 PM EDT Jani Mooney MD LAB BLOOD ORDERABLES Final Resul t [facility] [address] [facility], [place]. [address] * ECG 12 lead (MUSE) (10/26/2024 2:19 PM EDT) 10/26/2024 2:19 PM EDT Narrative MUSE - 10/27/2024 10:09 AM EDT Ventricular Rate: 105 BPM Atrial Rate: 105 BPM P-R Interval: 128 ms QRS Duration: 94 ms QT: 474 ms QTc: 626 ms R [place]: -37 degrees T [place]: 35 degrees Diagnosis Line: Critical Test Result: Long QTc ^ SINUS TACHYCARDIA ^ LEFT AXIS DEVIATION, LEFT ANTERIOR HEMIBLOCK ^ PROLONGED QT ^ ABNORMAL ECG ^ ^ Confirmed by MD HA, ERICK ([facility]) on 10/27/2024 10:09:25 AM Quinten Best MD ECG ORDERABLES Final Result Performing Organization Address [facility] Co de Phone Number MUSE * (ABNORMAL) POC Glucose Monitoring Device (10/26/2024 2:00 PM EDT) POC Glucose Monitoring Device 183(H) 70 - 100 mg/dL 10/26/2024 2:01 PM EDT [facility] Blood 10/26/2024 2:00 PM EDT 10/26/2024 2:01 PM EDT Semaj Mcnair III, MD POINT OF CARE TEST ORDERABLES Final Result Performing Organization Address [facility] de Phone Number [facility] [address] * (ABNORMAL) POC Glucose Monitoring Device (10/26/2024 1:05 PM EDT) POC Glucose Monitoring Device 212(H) 70 - 100 mg/dL 10/26/2024 1:06 PM EDT [facility] Blood 10/26/2024 1:05 PM EDT 10/26/2024 1:06 PM EDT Semaj Mcnair III, MD POINT OF CARE TEST ORDERABLES Final Result Performing Organization Address [facility] Co de Phone Number [facility] [address] * Transfuse Cryoprecipitate Has consent been obtained? Yes; Transfusion Rate: Per dept routine (10/26/2024 12:25 PM EDT) Shay Sifuentes MD NURSING TREATMENT ORDERABLES - BLOOD ADMIN Final Result Performing Organization Address [facility] de Phone Number EXTERNAL * Transfuse Cryoprecipitate Has consent been obtained? Yes; Transfusion Rate: Per dept routine, 1 Units (10/26/2024 12:25 PM EDT) Shay Sifuentes MD NURSING TREATMENT ORDERABLES - BLOOD ADMIN Final Result Performing Organization Address [facility] de Phone Number EXTERNAL * (ABNORMAL) POC Glucose Monitoring Device (10/26/2024 12:06 PM EDT) POC Glucose Monitoring Device 226(H) 70 - 100 mg/dL 10/26/2024 12:07 PM EDT [facility] Blood 10/26/2024 12:0 6 PM EDT 10/26/2024 12:07 PM EDT Semaj Mcnair III, MD POINT OF CARE TEST ORDERABLES Final Result Performing Organization Address [facility] de Phone Number [facility] [address] * Transfuse Cryoprecipitate Transfusion Rate: Per dept routine (10/26/2024 12:01 PM EDT) John Pina MD NURSING TREATMENT ORDERABLES - BLOOD ADMIN Final Result Performing Organization Address [facility] de Phone Number EXTERNAL * Transfuse Cryoprecipitate Transfusion Rate: Per dept routine, 1 Units (10/26/2024 12:01 PM EDT) John Pina MD NURSING TREATMENT ORDERABLES - BLOOD ADMIN Final Result Performing Organization Address [facility] de Phone Number EXTERNAL * Lactic Acid (10/26/2024 10:48 AM EDT) Lactate 1.2 0.5 - 2.2 mmol/L 10/26/2024 11:27 AM EDT [facility] Plasma 10/26/2024 10:4 8 AM EDT 10/26/2024 10:53 AM EDT Kemar Sahni MD LAB BLOOD ORDERABLES Final Result [facility] [address] * Magnesium (10/26/2024 10:48 AM EDT) Magnesium 2.0 1.5 - 2.5 mg/dL 10/26/2024 11:26 AM EDT [facility] Plasma 10/26/2024 10:4 8 AM EDT 10/26/2024 10:53 AM EDT Kemar Sahni MD LAB BLOOD ORDERABLES Final Result Performing Organization Address [facility] Co de Phone Number [facility] [address] * (ABNORMAL) Hepatic Function Panel (10/26/2024 10:48 AM EDT) Total Bilirubin 5.9(H) 0.0 - 1.5 mg/dL 10/26/2024 11:26 AM EDT [facility] Bilirubin, Direct 4.74(H) 0.00 - 0.40 mg/dL 10/26/2024 11:26 AM EDT [facility] AST 872(H) 13 - 39 U/L 10/26/2024 11:26 AM EDT [facility] ALT 736(H) 7 - 52 U/L 10/26/2024 11:26 AM EDT [facility] Alkaline Phosphatase 56 36 - 125 U/L 10/26/2024 11:26 AM EDT [facility] Total Protein 3.5(L) 6.4 - 8.9 g/dL 10/26/2024 11:26 AM EDT [facility] Albumin 2.5(L) 3.5 - 5.7 g/dL 10/26/2024 11:26 AM EDT [facility] Bilirubin, Indirect 1.16(H) 0.00 - 1.10 mg/dL 10/26/2024 11:26 AM EDT [facility] Plasma 10/26/2024 10:4 8 AM EDT 10/26/2024 10:53 AM EDT Kemar Sahni MD LAB BLOOD ORDERABLES Final Result Performing Organization Address [facility] de Phone Number [facility] [address] [facility] * (ABNORMAL) Protime-INR (10/26/2024 10:48 AM EDT) Protime 23.0(H) 12.1 - 15.1 seconds 10/26/2024 11:26 AM EDT [facility] INR 2.0(H) 0.9 - 1.1 10/26/2024 11:26 AM EDT [facility] Comment: RECOMMENDED THERAPEUTIC RANGES USING INR : Stable oral anticoagulant therapy: 2.0 - 3.0 Mechanical prosthetic heart valve: 2.5 - 3.5 Recurrent acute myocardial infarction: 2.5 - 3.5 Plasma 10/26/2024 10:4 8 AM EDT 10/26/2024 10:53 AM EDT Result [facility] Kemar Sahni MD LAB BLOOD ORDERABLES Final Result Performing Organization Address [facility] de Phone Number [facility] [address] [facility] * (ABNORMAL) CBC (10/26/2024 10:48 AM EDT) WBC 17.3(H) 3.8 - 10.8 10E3/uL 10/26/2024 11:14 AM EDT [facility] RBC 4.22 4.20 - 5.80 10E6/uL 10/26/2024 11:14 AM EDT [facility] Hemoglobin 12.8(L) 13.2 - 17.1 g/dL 10/26/2024 11:14 AM EDT [facility] Hematocrit 37.2(L) 38.5 - 50.0 % 10/26/2024 11:14 AM EDT [facility] MCV 88.3 80.0 - 100.0 fL 10/26/2024 11:14 AM EDT [facility] MCH 30.4 27.0 - 33.0 pg 10/26/2024 11:14 AM EDT [facility] MCHC 34.4 32.0 - 36.0 g/dL 10/26/2024 11:14 AM EDT [facility] RDW 20.8(H) 11.0 - 15.0 % 10/26/2024 11:14 AM EDT [facility] Platelets 109(L) 140 - 400 10E3/uL 10/26/2024 11:14 AM EDT [facility] MPV 7.5 7.5 - 11.5 fL 10/26/2024 11:14 AM EDT [facility] Whole Blood 10/26/2024 10:4 8 AM EDT 10/26/2024 10:53 AM EDT Kemar Sahni MD LAB BLOOD ORDERABLES Final Result [facility] [address] [place] [address], [facility] * (ABNORMAL) Blood gas, arterial (10/26/2024 10:48 AM EDT) O2 Sat, Arterial 97 10/26/2024 10:54 AM EDT [facility] FIO2 35% 10/26/2024 10:54 AM EDT [facility] pH, Arterial 7.37 7.35 - 7.45 10/26/2024 10:54 AM EDT [facility] pCO2, Arterial 36 35 - 45 mm Hg 10/26/2024 10:54 AM EDT [facility] pO2, Arterial 91 80 - 100 mm Hg 10/26/2024 10:54 AM EDT [facility] HCO3, Arterial 22 22 - 26 mmol/L 10/26/2024 10:54 AM EDT [facility] CO2 Content,Arteri al 22(L) 23 - 27 mmol/L 10/26/2024 10:54 AM EDT [facility] Base Excess, Arterial -3.9(L) -2.0 - 3.0 mmol/L 10/26/2024 10:54 AM EDT [facility] %HBO2, Arterial 94.8(L) 95.0 - 98.0 % 10/26/2024 10:54 AM EDT [facility] Carboxyhemoglo bin, Arterial 1.9 % 10/26/2024 10:54 AM EDT [facility] Comment: CARBOXYHEMOGLOBIN (CO) REFERENCE RANGES: Non-Smokers: <2 % Smokers: <8 % TOXIC: >20 % Methemoglobin, Arterial 0.7 0.0 - 1.5 % 10/26/2024 10:54 AM EDT [facility] Reduced hemoglobin, Arterial 2.5 0.0 - 5.0 % 10/26/2024 10:54 AM EDT [facility] Blood, Arterial 10/26/2024 1 0:48 AM EDT 10/26/2024 10:52 AM EDT us Shay Sifuentes MD LAB BLOOD ORDERABLES Final Resu lt [facility] [address] * (ABNORMAL) Renal Function Panel w/EGFR (10/26/2024 10:48 AM EDT) Sodium 139 133 - 146 mmol/L 10/26/2024 11:26 AM EDT [facility] Potassium 2.9(LL) 3.5 - 5.3 mmol/L 10/26/2024 11:26 AM EDT [facility] Comment:K CRITICAL VALUE WAS PREVIOUSLY CALLED Chloride 107 98 - 110 mmol/L 10/26/2024 11:26 AM EDT [facility] CO2 22 21 - 33 mmol/L 10/26/2024 11:26 AM EDT [facility] Anion Gap 10 3 - 16 mmol/L 10/26/2024 11:26 AM EDT [facility] BUN 61(H) 7 - 25 mg/dL 10/26/2024 11:26 AM EDT [facility] Creatinine 2.78(H) 0.60 - 1.30 mg/dL 10/26/2024 11:26 AM EDT [facility] Glucose 253(H) 70 - 100 mg/dL 10/26/2024 11:26 AM EDT [facility] Calcium 8.8 8.6 - 10.3 mg/dL 10/26/2024 11:26 AM EDT [facility] Phosphorus 4.1 2.1 - 4.7 mg/dL 10/26/2024 11:26 AM EDT [facility] Albumin 2.5(L) 3.5 - 5.7 g/dL 10/26/2024 11:26 AM EDT [facility] Osmolality, Calculated 314(H) 278 - 305 mOsm/kg 10/26/2024 11:26 AM EDT [facility] EGFR 28 10/26/2024 11:26 AM EDT [facility] Comment:As [...] Sahni MD LAB BLOOD ORDERABLES Final Result [facility] [address] [place] [address], [facility] * (ABNORMAL) POC Glucose Monitoring Device (10/26/2024 10:47 AM EDT) POC Glucose Monitoring Device 234(H) 70 - 100 mg/dL 10/26/2024 10:48 AM EDT [facility] Blood 10/26/2024 10:4 7 AM EDT 10/26/2024 10:48 AM EDT us Semaj Mcnair III, MD POINT OF CARE TEST ORDERABLES Final Result Performing Organization Address [facility]/ZIP Co de Phone Number [facility] [address] [facility] * CARISA Rhythm Strip - Scan (10/26/2024 10:45 AM EDT) us Scanning Uchhim SCAN DOCS - NO RESULTS Final Res ult * (ABNORMAL) POC Glucose Monitoring Device (10/26/2024 10:08 AM EDT) POC Glucose Monitoring Device 235(H) 70 - 100 mg/dL 10/26/2024 10:09 AM EDT [facility] Blood 10/26/2024 10:0 8 AM EDT 10/26/2024 10:09 AM EDT us Semaj Mcnair III, MD POINT OF CARE TEST ORDERABLES Final Result Performing Organization Address [facility] Co de Phone Number [facility] [address] [facility] * (ABNORMAL) POC Glucose Monitoring Device (10/26/2024 8:57 AM EDT) POC Glucose Monitoring Device 232(H) 70 - 100 mg/dL 10/26/2024 8:59 AM EDT [facility] Blood 10/26/2024 8:57 AM EDT 10/26/2024 8:58 AM EDT us Semaj Mcnair III, MD POINT OF CARE TEST ORDERABLES Final Result Performing Organization Address City/[facility]/ZIP Co de Phone Number [facility] [address] [facility] * ECG 12 lead (MUSE) (10/26/2024 8:16 AM EDT) 10/26/2024 8:16 AM EDT Narrative MUSE - 10/27/2024 10:09 AM EDT Ventricular Rate: 112 BPM QRS Duration: 96 ms QT: 452 ms QTc: 616 ms R [place]: -41 degrees T [place]: 40 degrees Diagnosis Line: Critical Test Result: Long QTc ^ SINUS TACHYCARDIA OCCASIONAL PREMATURE VENTRICULAR COMPLEXES ^ LEFT AXIS DEVIATION, LEFT ANTERIOR HEMIBLOCK ^ PROLONGED QT ^ ABNORMAL ECG ^ ^ Confirmed by MD HA, [facility] ([id number]) on 10/27/2024 10:09:18 AM us Shay [...] Glucose Monitoring Device (10/26/2024 7:59 AM EDT) [facility] POC Glucose Monitoring Device 229(H) 70 - 100 mg/dL 10/26/2024 8:01 AM EDT [facility] Blood 10/26/2024 7:59 AM EDT 10/26/2024 8:00 AM EDT Semaj Mcnair III, MD POINT OF CARE TEST ORDERABLES Final Result [facility] [address] [place], [place] [address] * (ABNORMAL) TEG-Bypass/ECMO/Liver HN (Factor function, Platelet/Fibrin Clot Strength w/Clot Breakdown, Heparinase In All Channels) (10/26/2024 7:59 AM EDT) [facility] Signature Citrated Kaolin Reaction Time (TEGECMOLIVER) 8.2 4.6 - 9.1 minutes 10/26/2024 10:36 AM EDT [facility] Citrated Kaolin W/Heparinase Reaction Time (TEGECMOLIVER) 8.1 4.3 - 8.3 minutes 10/26/2024 10:36 AM EDT [facility] Citrated Kaolin Maximum Amplitude (TEGECMOLIVER) 46.8(L) 52.0 - 69.0 mm 10/26/2024 10:36 AM EDT [facility] Citrated Functional Fibrinogen W/Heparinase Maximum Amplitude(TEGEC MOLIVER) 10.5(L) 15.0 - 34.0 mm 10/26/2024 10:36 AM EDT [facility] Citrated Rapid Teg W/Heparinase Maximum Amplitude (TEGECMOLIVER) 45.5(L) 53.0 - 69.0 mm 10/26/2024 10:36 AM EDT [facility] Citrated Kaolin w/Heparinase Percent Lysis (TEGECMOLIVER) 0.0 0.0 - 3.2 % 10/26/2024 10:36 AM EDT [facility] Whole Blood (Citrate) 10/26/2024 7:59 AM EDT 10/26/2024 8:05 AM EDT Shay Sifuentes MD LAB BLOOD ORDERABLES Final Resu lt [facility] [address] * (ABNORMAL) POC Glucose Monitoring Device (10/26/2024 6:12 AM EDT) POC Glucose Monitoring Device 196(H) 70 - 100 mg/dL 10/26/2024 6:13 AM EDT [facility] Blood 10/26/2024 6:12 AM EDT 10/26/2024 6:13 AM EDT Result [facility] Semaj Mcnair III, MD POINT OF CARE TEST ORDERABLES Final Result [facility] [address] * Lactic Acid (10/26/2024 6:10 AM EDT) Lactate 1.2 0.5 - 2.2 mmol/L 10/26/2024 6:39 AM EDT [facility] Plasma 10/26/2024 6:10 AM EDT 10/26/2024 6:19 AM EDT Sveta Judge MD LAB BLOOD ORDERABLES Final Resu lt Performing Organization Address City/[facility]/ZIP Co de Phone Number [facility] [address] * (ABNORMAL) Fibrinogen (10/26/2024 6:10 AM EDT) Fibrinogen 160(L) 218 - 406 mg/dL 10/26/2024 6:41 AM EDT [facility] Plasma 10/26/2024 6:10 AM EDT 10/26/2024 6:26 AM EDT Sveta Judge MD LAB BLOOD ORDERABLES Final Resu lt Performing Organization Address [facility] Co de Phone Number [facility] [address] * (ABNORMAL) Protime-INR (10/26/2024 6:10 AM EDT) Protime 25.0(H) 12.1 - 15.1 seconds 10/26/2024 6:41 AM EDT [facility] INR 2.2(H) 0.9 - 1.1 10/26/2024 6:41 AM EDT [facility] Comment: RECOMMENDED THERAPEUTIC RANGES USING INR : Stable oral anticoagulant therapy: 2.0 - 3.0 Mechanical prosthetic heart valve: 2.5 - 3.5 Recurrent acute myocardial infarction: 2.5 - 3.5 Plasma 10/26/2024 6:10 AM EDT 10/26/2024 6:26 AM EDT Sveta Judge MD LAB BLOOD ORDERABLES Final Resu lt Performing Organization Address [facility] Co de Phone Number [facility] [address] * (ABNORMAL) Blood gas, arterial (10/26/2024 6:10 AM EDT) O2 Sat, Arterial 98 10/26/2024 6:23 AM EDT [facility] FIO2 60 10/26/2024 6:23 AM EDT [facility] pH, Arterial 7.27(L) 7.35 - 7.45 10/26/2024 6:23 AM EDT [facility] pCO2, Arterial 47(H) 35 - 45 mm Hg 10/26/2024 6:23 AM EDT [facility] pO2, Arterial 127(H) 80 - 100 mm Hg 10/26/2024 6:23 AM EDT [facility] HCO3, Arterial 21(L) 22 - 26 mmol/L 10/26/2024 6:23 AM EDT [facility] CO2 Content,Arteri al 23 23 - 27 mmol/L 10/26/2024 6:23 AM EDT [facility] Base Excess, Arterial -5.4(L) -2.0 - 3.0 mmol/L 10/26/2024 6:23 AM EDT [facility] %HBO2, Arterial 94.6(L) 95.0 - 98.0 % 10/26/2024 6:23 AM EDT [facility] Carboxyhemoglo bin, Arterial 2.0 % 10/26/2024 6:23 AM EDT [facility] Comment: CARBOXYHEMOGLOBIN (CO) REFERENCE RANGES: Non-Smokers: <2 % Smokers: <8 % TOXIC: >20 % Methemoglobin, Arterial 1.6(H) 0.0 - 1.5 % 10/26/2024 6:23 AM EDT [facility] Reduced hemoglobin, Arterial 1.8 0.0 - 5.0 % 10/26/2024 6:23 AM EDT [facility] Blood, Arterial 10/26/2024 6 :10 AM EDT 10/26/2024 6:20 AM EDT us Sveta Judge MD LAB BLOOD ORDERABLES Final Resu lt [facility] [address] [place] [address], [facility] * Magnesium (10/26/2024 6:10 AM EDT) Magnesium 1.5 1.5 - 2.5 mg/dL 10/26/2024 7:09 AM EDT [facility] Plasma 10/26/2024 6:10 AM EDT 10/26/2024 6:23 AM EDT Sveta Judge MD LAB BLOOD ORDERABLES Final Resu lt [facility] [address] * (ABNORMAL) Hepatic Function Panel (10/26/2024 6:10 AM EDT) Total Bilirubin 6.2(H) 0.0 - 1.5 mg/dL 10/26/2024 7:11 AM EDT [facility] Bilirubin, Direct 5.26(H) 0.00 - 0.40 mg/dL 10/26/2024 7:11 AM EDT [facility] AST 1,071(H) 13 - 39 U/L 10/26/2024 7:11 AM EDT [facility] ALT 805(H) 7 - 52 U/L 10/26/2024 7:11 AM EDT [facility] Alkaline Phosphatase 55 36 - 125 U/L 10/26/2024 7:11 AM EDT [facility] Total Protein <3.0(L) 6.4 - 8.9 g/dL 10/26/2024 7:11 AM EDT [facility] Albumin 1.9(L) 3.5 - 5.7 g/dL 10/26/2024 7:11 AM EDT [facility] Bilirubin, Indirect 0.94 0.00 - 1.10 mg/dL 10/26/2024 7:11 AM EDT [facility] Plasma 10/26/2024 6:10 AM EDT 10/26/2024 6:23 AM EDT Sveta Judge MD LAB BLOOD ORDERABLES Final Resu lt [facility] [address] * (ABNORMAL) Renal Function Panel w/EGFR (10/26/2024 6:10 AM EDT) Sodium 141 133 - 146 mmol/L 10/26/2024 7:09 AM EDT [facility] Potassium 2.8(LL) 3.5 - 5.3 mmol/L 10/26/2024 7:09 AM EDT [facility] Comment:Critical value previ ously called. Chloride 106 98 - 110 mmol/L 10/26/2024 7:09 AM EDT [facility] CO2 25 21 - 33 mmol/L 10/26/2024 7:09 AM EDT [facility] Anion Gap 10 3 - 16 mmol/L 10/26/2024 7:09 AM EDT [facility] BUN 57(H) 7 - 25 mg/dL 10/26/2024 7:09 AM EDT [facility] Creatinine 2.70(H) 0.60 - 1.30 mg/dL 10/26/2024 7:09 AM EDT [facility] Glucose 210(H) 70 - 100 mg/dL 10/26/2024 7:09 AM EDT [facility] Calcium 8.7 8.6 - 10.3 mg/dL 10/26/2024 7:09 AM EDT [facility] Phosphorus 5.4(H) 2.1 - 4.7 mg/dL 10/26/2024 7:09 AM EDT [facility] Albumin 1.9(L) 3.5 - 5.7 g/dL 10/26/2024 7:11 AM T [facility] Osmolality, Calculated 314(H) 278 - 305 mOsm/kg 10/26/2024 7:09 AM EDT [facility] EGFR 29 10/26/2024 7:09 AM T [facility] Comment:As of 2021, [...] Resu lt [facility] [address] [place], [place] [address] * (ABNORMAL) CBC (10/26/2024 6:10 AM EDT) WBC 14.8(H) 3.8 - 10.8 10E3/uL 10/26/2024 6:46 AM EDT [facility] RBC 4.04(L) 4.20 - 5.80 10E6/uL 10/26/2024 6:46 AM EDT [facility] Hemoglobin 12.7(L) 13.2 - 17.1 g/dL 10/26/2024 6:46 AM EDT [facility] Hematocrit 35.9(L) 38.5 - 50.0 % 10/26/2024 6:46 AM EDT [facility] MCV 89.0 80.0 - 100.0 fL 10/26/2024 6:46 AM EDT [facility] MCH 31.3 27.0 - 33.0 pg 10/26/2024 6:46 AM EDT [facility] MCHC 35.2 32.0 - 36.0 g/dL 10/26/2024 6:46 AM EDT [facility] RDW 19.7(H) 11.0 - 15.0 % 10/26/2024 6:46 AM EDT [facility] Platelets 107(L) 140 - 400 10E3/uL 10/26/2024 6:46 AM EDT [facility] MPV 7.4(L) 7.5 - 11.5 fL 10/26/2024 6:46 AM EDT [facility] Whole Blood 10/26/2024 6:10 AM EDT 10/26/2024 6:26 AM EDT Sveta Judge MD LAB BLOOD ORDERABLES Final Resu lt Performing Organization Address [facility]/ZIP Co de Phone Number [facility] [address] [facility] * (ABNORMAL) POC INR (10/26/2024 5:16 AM EDT) Prothrombin Time INR, POC 2.4(H) 0.8 - 1.4 10/27/2024 6:51 AM EDT [facility] Comment: Test results may vary [...] Organization Address [facility] Co de Phone Number [facility] [address] [facility] * POC Sample Type (10/26/2024 5:14 AM EDT) Pathologist [facility] POC Sample Type Arterial 10/26/2024 5:31 AM EDT [facility] Blood, Arterial 10/26/2024 5 :14 AM EDT 10/26/2024 5:31 AM EDT Semaj Mcnair III, MD POINT OF CARE TEST ORDERABLES Final Result Performing Organization Address City/[facility]/ZIP Co de Phone Number [facility] [address] [facility] * POC Anion Gap (10/26/2024 5:14 AM EDT) POC Anion Gap, Arterial 12 3 - 16 mmol/L 10/26/2024 5:31 AM EDT [facility] Blood, Arterial 10/26/2024 5 :14 AM EDT 10/26/2024 5:31 AM EDT us Semaj Mcnair III, MD POINT OF CARE TEST ORDERABLES Final Result Performing Organization Address City/[facility]/ZIP Co de Phone Number [facility] [address] [facility] * POC Chloride (10/26/2024 5:14 AM EDT) POC Chloride 104 98 - 110 mmol/L 10/26/2024 5:31 AM EDT [facility] Blood, Arterial 10/26/2024 5 :14 AM EDT 10/26/2024 5:31 AM EDT us Semaj Mcnair III, MD POINT OF CARE TEST ORDERABLES Final Result Performing Organization Address City/[facility]/ZIP Co de Phone Number [facility] [address] [facility] [place]. [address] * (ABNORMAL) POC Hemoglobin (10/26/2024 5:14 AM EDT) POC Hemoglobin 9.5(L) 14.0 - 18.0 g/dL 10/26/2024 5:31 AM EDT [facility] Blood, Arterial 10/26/2024 5 :14 AM EDT 10/26/2024 5:31 AM EDT Semaj Mcnair III, MD POINT OF CARE TEST ORDERABLES Final Result [facility] [address], [place]. [address] * (ABNORMAL) POC hematocrit (10/26/2024 5:14 AM EDT) POC Hematocrit 28.0(L) 40 - 52 % 10/26/2024 5:31 AM EDT [facility] Blood, Arterial 10/26/2024 5 :14 AM EDT 10/26/2024 5:31 AM EDT us Semaj Mcnair III, MD POINT OF CARE TEST ORDERABLES Final Result Performing Organization Address City/[facility] Co de Phone Number [facility] [address] [facility], [place]. [address] * POC Lactate (10/26/2024 5:14 AM EDT) POC Lactate 1.76 0.50 - 2.20 mmol/L 10/26/2024 5:31 AM EDT [facility] Blood, Arterial 10/26/2024 5 :14 AM EDT 10/26/2024 5:31 AM EDT us Semaj Mcnair III, MD POINT OF CARE TEST ORDERABLES Final Result Performing Organization Address [facility] Co de Phone Number [facility] [address] [facility], [place]. [address] * (ABNORMAL) POC Glucose (10/26/2024 5:14 AM EDT) POC Glucose, Arterial 183(H) 70 - 100 mg/dL 10/26/2024 5:31 AM EDT [facility] Blood, Arterial 10/26/2024 5 :14 AM EDT 10/26/2024 5:31 AM EDT Semaj Mcnair III, MD POINT OF CARE TEST ORDERABLES Final Result Performing Organization Address City/[facility] Co de Phone Number [facility] [address] [facility], [place]. [address] * (ABNORMAL) POC Ionized Calcium (10/26/2024 5:14 AM EDT) POC Ionized Calcium 5.50(H) 4.50 - 5.30 mg/dL 10/26/2024 5:31 AM EDT [facility] Blood, Arterial 10/26/2024 5 :14 AM EDT 10/26/2024 5:31 AM EDT us Semaj Mcnair III, MD POINT OF CARE TEST ORDERABLES Final Result Performing Organization Address [facility] Co de Phone Number [facility] [id number] * (ABNORMAL) POC Potassium (10/26/2024 5:14 AM EDT) POC Potassium 2.8(LL) 3.5 - 5.3 mmol/L 10/26/2024 5:31 AM EDT [facility] Blood, Arterial 10/26/2024 5 :14 AM EDT 10/26/2024 5:31 AM EDT us Semaj Mcnair III, MD POINT OF CARE TEST ORDERABLES Final Result Performing Organization Address [facility] Co de Phone Number [facility] [address] [facility], [place]. [address] * POC Sodium (10/26/2024 5:14 AM EDT) POC Sodium 138 136 - 146 mmol/L 10/26/2024 5:31 AM EDT [facility] Blood, Arterial 10/26/2024 5 :14 AM EDT 10/26/2024 5:31 AM EDT us Semaj Mcnair III, MD POINT OF CARE TEST ORDERABLES Final Result Performing Organization Address City/[facility] Co de Phone Number [facility] [address] [place], [place]. [address] * POC TCO2 (10/26/2024 5:14 AM EDT) POC TCO2, Arterial 23 23 - 27 mmol/L 10/26/2024 5:31 AM EDT [facility] Blood, Arterial 10/26/2024 5 :14 AM EDT 10/26/2024 5:31 AM EDT Semaj Mcnair III, MD POINT OF CARE TEST ORDERABLES Final Result [facility] [address] * (ABNORMAL) POC O2 SAT (10/26/2024 5:14 AM EDT) POC O2 Saturation, Arterial 99(H) 95 - 98 % 10/26/2024 5:31 AM EDT [facility] Blood, Arterial 10/26/2024 5 :14 AM EDT 10/26/2024 5:31 AM EDT Semaj Mcnair III, MD POINT OF CARE TEST ORDERABLES Final Result Performing Organization Address City/[facility] Co de Phone Number [facility] [address] * (ABNORMAL) POC Base Excess (10/26/2024 5:14 AM EDT) POC Base Excess, Arterial -5(L) -2 - 3 mmol/L 10/26/2024 5:31 AM EDT [facility] Blood, Arterial 10/26/2024 5 :14 AM EDT 10/26/2024 5:31 AM EDT Semaj Mcnair III, MD POINT OF CARE TEST ORDERABLES Final Result [facility] [address] * POC HCO3 (10/26/2024 5:14 AM EDT) POC HCO3, Arterial 22 22 - 26 mmol/L 10/26/2024 5:31 AM EDT [facility] Blood, Arterial 10/26/2024 5 :14 AM EDT 10/26/2024 5:31 AM EDT us Semaj Mcnair III, MD POINT OF CARE TEST ORDERABLES Final Result [facility] [address] * (ABNORMAL) POC PO2 (10/26/2024 5:14 AM EDT) POC pO2, Arterial 133(H) 80 - 100 mm Hg 10/26/2024 5:31 AM EDT [facility] Blood, Arterial 10/26/2024 5 :14 AM EDT 10/26/2024 5:31 AM EDT Semaj Mcnair III, MD POINT OF CARE TEST ORDERABLES Final Result Performing Organization Address City/[facility]/ZIP Co de Phone Number [facility] [address] [place], [place]. [address] * POC PCO2 (10/26/2024 5:14 AM EDT) POC pCO2, Arterial 45 35 - 45 mm Hg 10/26/2024 5:31 AM EDT [facility] Blood, Arterial 10/26/2024 5 :14 AM EDT 10/26/2024 5:31 AM EDT Semaj Mcnair III, MD POINT OF CARE TEST ORDERABLES Final Result [facility] [address] [place], [place]. [address] * (ABNORMAL) POC pH (10/26/2024 5:14 AM EDT) POC pH, Arterial 7.29(L) 7.35 - 7.45 10/26/2024 5:31 AM EDT [facility] Blood, Arterial 10/26/2024 5 :14 AM EDT 10/26/2024 5:31 AM EDT us Semaj Mcnair III, MD POINT OF CARE TEST ORDERABLES Final Result Performing Organization Address City/[facility] Co de Phone Number [facility] [address] [place], [place]. [address] * Transfuse Cryoprecipitate (10/26/2024 4:37 AM EDT) Eber Quinones MD NURSING TREATMENT ORDERA BLES - BLOOD ADMIN Final Result * Transfuse Cryoprecipitate (10/26/2024 4:37 AM EDT) Eber Quinones MD NURSING TREATMENT ORDERA BLES - BLOOD ADMIN Final Result * (ABNORMAL) POC INR (10/26/2024 4:27 AM EDT) Prothrombin Time INR, POC 2.3(H) 0.8 - 1.4 10/27/2024 6:51 AM EDT [facility] Comment: Test results may vary [...] Organization Address [facility] Co de Phone Number [facility] [address] [place], [place]. [address] * POC Sample Type (10/26/2024 4:24 AM EDT) POC Sample Type Arterial 10/26/2024 5:09 AM EDT [facility] Blood, Arterial 10/26/2024 4 :24 AM EDT 10/26/2024 5:09 AM EDT Semaj Mcnair III, MD POINT OF CARE TEST ORDERABLES Final Result [facility] [address] * POC Anion Gap (10/26/2024 4:24 AM EDT) POC Anion Gap, Arterial 14 3 - 16 mmol/L 10/26/2024 5:09 AM EDT [facility] Blood, Arterial 10/26/2024 4 :24 AM EDT 10/26/2024 5:09 AM EDT Semaj Mcnair III, MD POINT OF CARE TEST ORDERABLES Final Result [facility] [address] * POC Chloride (10/26/2024 4:24 AM EDT) POC Chloride 103 98 - 110 mmol/L 10/26/2024 5:09 AM EDT [facility] Blood, Arterial 10/26/2024 4 :24 AM EDT 10/26/2024 5:09 AM EDT us Semaj Mcnair III, MD POINT OF CARE TEST ORDERABLES Final Result [facility] [address] * (ABNORMAL) POC Hemoglobin (10/26/2024 4:24 AM EDT) POC Hemoglobin 10.3(L) 14.0 - 18.0 g/dL 10/26/2024 5:09 AM EDT [facility] Blood, Arterial 10/26/2024 4 :24 AM EDT 10/26/2024 5:09 AM EDT us Semaj Mcnair III, MD POINT OF CARE TEST ORDERABLES Final Result [facility] [address] * (ABNORMAL) POC hematocrit (10/26/2024 4:24 AM EDT) POC Hematocrit 30.0(L) 40 - 52 % 10/26/2024 5:09 AM EDT [facility] Blood, Arterial 10/26/2024 4 :24 AM EDT 10/26/2024 5:09 AM EDT us Semaj Mcnair III, MD POINT OF CARE TEST ORDERABLES Final Result [facility] [address] * (ABNORMAL) POC Lactate (10/26/2024 4:24 AM EDT) POC Lactate 2.43(H) 0.50 - 2.20 mmol/L 10/26/2024 5:09 AM EDT [facility] Blood, Arterial 10/26/2024 4 :24 AM EDT 10/26/2024 5:09 AM EDT us Semaj Mcnair III, MD POINT OF CARE TEST ORDERABLES Final Result Performing Organization Address City/[facility]/ZIP Co de Phone Number [facility] [address] * (ABNORMAL) POC Glucose (10/26/2024 4:24 AM EDT) POC Glucose, Arterial 185(H) 70 - 100 mg/dL 10/26/2024 5:09 AM EDT [facility] Blood, Arterial 10/26/2024 4 :24 AM EDT 10/26/2024 5:09 AM EDT us Semaj Mcnair III, MD POINT OF CARE TEST ORDERABLES Final Result [facility] [address] * POC Ionized Calcium (10/26/2024 4:24 AM EDT) POC Ionized Calcium 5.20 4.50 - 5.30 mg/dL 10/26/2024 5:09 AM EDT [facility] Blood, Arterial 10/26/2024 4 :24 AM EDT 10/26/2024 5:09 AM EDT us Semaj Mcnair III, MD POINT OF CARE TEST ORDERABLES Final Result [facility] [address] * (ABNORMAL) POC Potassium (10/26/2024 4:24 AM EDT) POC Potassium 2.8(LL) 3.5 - 5.3 mmol/L 10/26/2024 5:09 AM EDT [facility] Blood, Arterial 10/26/2024 4 :24 AM EDT 10/26/2024 5:09 AM EDT us Semaj Mcnair III, MD POINT OF CARE TEST ORDERABLES Final Result Performing Organization Address City/[facility] Co de Phone Number [facility] [address] * POC Sodium (10/26/2024 4:24 AM EDT) POC Sodium 139 136 - 146 mmol/L 10/26/2024 5:09 AM EDT [facility] Blood, Arterial 10/26/2024 4 :24 AM EDT 10/26/2024 5:09 AM EDT us Semaj Mcnair III, MD POINT OF CARE TEST ORDERABLES Final Result Performing Organization Address City/[facility]/ZIP Co de Phone Number [facility] [address] * POC TCO2 (10/26/2024 4:24 AM EDT) POC TCO2, Arterial 23 23 - 27 mmol/L 10/26/2024 5:09 AM EDT [facility] Blood, Arterial 10/26/2024 4 :24 AM EDT 10/26/2024 5:09 AM EDT us Semaj Mcnair III, MD POINT OF CARE TEST ORDERABLES Final Result [facility] [address] [facility]. [address] * POC O2 SAT (10/26/2024 4:24 AM EDT) POC O2 Saturation, Arterial 96 95 - 98 % 10/26/2024 5:09 AM EDT [facility] Blood, Arterial 10/26/2024 4 :24 AM EDT 10/26/2024 5:09 AM EDT us Semaj Mcnair III, MD POINT OF CARE TEST ORDERABLES Final Result Performing Organization Address City/[facility] Co de Phone Number [facility] [address] [facility]. [address] * (ABNORMAL) POC Base Excess (10/26/2024 4:24 AM EDT) POC Base Excess, Arterial -5(L) -2 - 3 mmol/L 10/26/2024 5:09 AM EDT [facility] Blood, Arterial 10/26/2024 4 :24 AM EDT 10/26/2024 5:09 AM EDT us Semaj Mcnair III, MD POINT OF CARE TEST ORDERABLES Final Result [facility] [address] [facility]. [address] * POC HCO3 (10/26/2024 4:24 AM EDT) POC HCO3, Arterial 22 22 - 26 mmol/L 10/26/2024 5:09 AM EDT [facility] Blood, Arterial 10/26/2024 4 :24 AM EDT 10/26/2024 5:09 AM EDT us Semaj Mcnair III, MD POINT OF CARE TEST ORDERABLES Final Result Performing Organization Address City/[facility]/ZIP Co de Phone Number [facility] [address] [place], [place]. [address] * POC PO2 (10/26/2024 4:24 AM EDT) POC pO2, Arterial 93 80 - 100 mm Hg 10/26/2024 5:09 AM EDT [facility] Blood, Arterial 10/26/2024 4 :24 AM EDT 10/26/2024 5:09 AM EDT us Semaj Mcnair III, MD POINT OF CARE TEST ORDERABLES Final Result Performing Organization Address [facility] de Phone Number [facility] [address] [place], [place]. [address] * POC PCO2 (10/26/2024 4:24 AM EDT) POC pCO2, Arterial 44 35 - 45 mm Hg 10/26/2024 5:09 AM EDT [facility] Blood, Arterial 10/26/2024 4 :24 AM EDT 10/26/2024 5:09 AM EDT us Semaj Mcnair III, MD POINT OF CARE TEST ORDERABLES Final Result Performing Organization Address City/[facility] Co de Phone Number [facility] [address] [place] [place], [place]. [address] * (ABNORMAL) POC pH (10/26/2024 4:24 AM EDT) POC pH, Arterial 7.30(L) 7.35 - 7.45 10/26/2024 5:09 AM EDT [facility] Blood, Arterial 10/26/2024 4 :24 AM EDT 10/26/2024 5:09 AM EDT Semaj Mcnair III, MD POINT OF CARE TEST ORDERABLES Final Result Performing Organization Address City/[facility] Co de Phone Number [facility] [address] [place], [place]. [address] * Transfuse Platelets (10/26/2024 4:14 AM [...] TEST ORDERABLES Final Result Performing Organization Address City/[facility]/ZIP Co de Phone Number [facility] [address] [place], [place]. [address] * POC Sample Type (10/26/2024 3:31 AM EDT) POC Sample Type Arterial 10/26/2024 4:11 AM EDT [facility] Blood, Arterial 10/26/2024 3 :31 AM EDT 10/26/2024 4:11 AM EDT us Semaj Mcnair III, MD POINT OF CARE TEST ORDERABLES Final Result Performing Organization Address City/[facility] Co de Phone Number [facility] [address] * POC Anion Gap (10/26/2024 3:31 AM EDT) POC Anion Gap, Arterial 15 3 - 16 mmol/L 10/26/2024 4:11 AM EDT [facility] Blood, Arterial 10/26/2024 3 :31 AM EDT 10/26/2024 4:11 AM EDT us Semaj Mcnair III, MD POINT OF CARE TEST ORDERABLES Final Result Performing Organization Address [facility] Co de Phone Number [facility] [address] * POC Chloride (10/26/2024 3:31 AM EDT) POC Chloride 105 98 - 110 mmol/L 10/26/2024 4:11 AM EDT [facility] Blood, Arterial 10/26/2024 3 :31 AM EDT 10/26/2024 4:11 AM EDT us Semaj Mcnair III, MD POINT OF CARE TEST ORDERABLES Final Result Performing Organization Address City/[facility] Co de Phone Number [facility] [address] * (ABNORMAL) POC Hemoglobin (10/26/2024 3:31 AM EDT) POC Hemoglobin 9.7(L) 14.0 - 18.0 g/dL 10/26/2024 4:11 AM EDT [facility] Blood, Arterial 10/26/2024 3 :31 AM EDT 10/26/2024 4:11 AM EDT us Semaj Mcnair III, MD POINT OF CARE TEST ORDERABLES Final Result Performing Organization Address City/[facility] Co de Phone Number [facility] [address] * (ABNORMAL) POC hematocrit (10/26/2024 3:31 AM EDT) POC Hematocrit 29.0(L) 40 - 52 % 10/26/2024 4:11 AM EDT [facility] Blood, Arterial 10/26/2024 3 :31 AM EDT 10/26/2024 4:11 AM EDT us Semaj Mcnair III, MD POINT OF CARE TEST ORDERABLES Final Result Performing Organization Address [facility] Co de Phone Number [facility] [address] [place], [place]. [address] * (ABNORMAL) POC Lactate (10/26/2024 3:31 AM EDT) POC Lactate 3.54(H) 0.50 - 2.20 mmol/L 10/26/2024 4:11 AM EDT [facility] Blood, Arterial 10/26/2024 3 :31 AM EDT 10/26/2024 4:11 AM EDT us Semaj Mcnair III, MD POINT OF CARE TEST ORDERABLES Final Result Performing Organization Address City/[facility] Co de Phone Number [facility] [address] [place], [place]. [address] * (ABNORMAL) POC Glucose (10/26/2024 3:31 AM EDT) POC Glucose, Arterial 153(H) 70 - 100 mg/dL 10/26/2024 4:11 AM EDT [facility] Blood, Arterial 10/26/2024 3 :31 AM EDT 10/26/2024 4:11 AM EDT us Semaj Mcnair III, MD POINT OF CARE TEST ORDERABLES Final Result [facility] [address] [place] [address]. [address] * POC Ionized Calcium (10/26/2024 3:31 AM EDT) POC Ionized Calcium 5.10 4.50 - 5.30 mg/dL 10/26/2024 4:11 AM EDT [facility] Blood, Arterial 10/26/2024 3 :31 AM EDT 10/26/2024 4:11 AM EDT us Semaj Mcnair III, MD POINT OF CARE TEST ORDERABLES Final Result Performing Organization Address City/[facility] Co de Phone Number [facility] [address] [place] [address]. [address] * (ABNORMAL) POC Potassium (10/26/2024 3:31 AM EDT) POC Potassium 2.6(LL) 3.5 - 5.3 mmol/L 10/26/2024 4:11 AM EDT [facility] Blood, Arterial 10/26/2024 3 :31 AM EDT 10/26/2024 4:11 AM EDT us Semaj Mcnair III, MD POINT OF CARE TEST ORDERABLES Final Result [facility] [address] * POC Sodium (10/26/2024 3:31 AM EDT) POC Sodium 138 136 - 146 mmol/L 10/26/2024 4:11 AM EDT [facility] Blood, Arterial 10/26/2024 3 :31 AM EDT 10/26/2024 4:11 AM EDT us Semaj Mcnair III, MD POINT OF CARE TEST ORDERABLES Final Result Performing Organization Address City/[facility]/ZIP Co de Phone Number [facility] [address] [place], [place]. [address] * (ABNORMAL) POC TCO2 (10/26/2024 3:31 AM EDT) POC TCO2, Arterial 19(L) 23 - 27 mmol/L 10/26/2024 4:11 AM EDT [facility] Blood, Arterial 10/26/2024 3 :31 AM EDT 10/26/2024 4:11 AM EDT us Semaj Mcnair III, MD POINT OF CARE TEST ORDERABLES Final Result Performing Organization Address City/[facility] Co de Phone Number [facility] [address] * POC O2 SAT (10/26/2024 3:31 AM EDT) POC O2 Saturation, Arterial 97 95 - 98 % 10/26/2024 4:11 AM EDT [facility] Blood, Arterial 10/26/2024 3 :31 AM EDT 10/26/2024 4:11 AM EDT us Semaj Mcnair III, MD POINT OF CARE TEST ORDERABLES Final Result Performing Organization Address City/[facility]/ZIP Co de Phone Number [facility] [address] [place], [place]. [address] * (ABNORMAL) POC Base Excess (10/26/2024 3:31 AM EDT) POC Base Excess, Arterial -9(L) -2 - 3 mmol/L 10/26/2024 4:11 AM EDT [facility] Blood, Arterial 10/26/2024 3 :31 AM EDT 10/26/2024 4:11 AM EDT us Semaj Mcnair III, MD POINT OF CARE TEST ORDERABLES Final Result [facility] [address] [place], [place]. [address] * (ABNORMAL) POC HCO3 (10/26/2024 3:31 AM EDT) POC HCO3, Arterial 18(L) 22 - 26 mmol/L 10/26/2024 4:11 AM EDT [facility] Blood, Arterial 10/26/2024 3 :31 AM EDT 10/26/2024 4:11 AM EDT us Semaj Mcnair III, MD POINT OF CARE TEST ORDERABLES Final Result Performing Organization Address [facility]/ZIP Co de Phone Number [facility] [address] [place], [place]. [address] * (ABNORMAL) POC PO2 (10/26/2024 3:31 AM EDT) POC pO2, Arterial 104(H) 80 - 100 mm Hg 10/26/2024 4:11 AM EDT [facility] Blood, Arterial 10/26/2024 3 :31 AM EDT 10/26/2024 4:11 AM EDT us Semaj Mcnair III, MD POINT OF CARE TEST ORDERABLES Final Result Performing Organization Address City/[facility]/ZIP Co de Phone Number [facility] [address] [place], [place]. [address] * POC PCO2 (10/26/2024 3:31 AM EDT) POC pCO2, Arterial 42 35 - 45 mm Hg 10/26/2024 4:11 AM EDT [facility] Blood, Arterial 10/26/2024 3 :31 AM EDT 10/26/2024 4:11 AM EDT us Semaj Mcnair III, MD POINT OF CARE TEST ORDERABLES Final Result [facility] [address] * (ABNORMAL) POC pH (10/26/2024 3:31 AM EDT) [facility] POC pH, Arterial 7.24(L) 7.35 - 7.45 10/26/2024 4:11 AM EDT [facility] Blood, Arterial 10/26/2024 3 :31 AM EDT 10/26/2024 4:11 AM EDT us Semaj Mcnair III, MD POINT OF CARE TEST ORDERABLES Final Result Performing Organization Address [facility] Co de Phone Number [facility] [address] * (ABNORMAL) TEG-Global With Lysis (Baseline TEG with LY30, Will NOT Show Heparin Effect) (53:31 AM EDT) [facility] Citrated Kaolin Reaction Time (TEGLYSIS) 6.8 4.6 - 9.1 minutes 10/26/2024 5:02 AM EDT [facility] Citrated Rapid Teg Maximum Amplitude (TEGLYSIS) <40.0(L) 52.0 - 70.0 mm 10/26/2024 5:02 AM EDT [facility] Citrated Functional Fibrinogen Maximum Amplitude (TEGLYSIS) <4.0(L) 15.0 - 32.0 mm 10/26/2024 5:02 AM EDT [facility] Citrated Kaolin Percent Lysis (TEGLYSIS) 1.4 0.0 - 2.6 % 10/26/2024 5:02 AM EDT [facility] Whole Blood (Citrate) 10/26/2024 3:31 AM EDT 10/26/2024 3:40 AM EDT us Eber Quinones MD LAB BLOOD ORDERABLES Fin al Result Performing Organization Address City/[facility]/ZIP Co de Phone Number [facility] [address] [place], [place]. [address] * (ABNORMAL) CBC (10/26/2024 3:31 AM EDT) WBC 9.5 3.8 - 10.8 10E3/uL 10/26/2024 3:48 AM EDT [facility] RBC 3.68(L) 4.20 - 5.80 10E6/uL 10/26/2024 3:48 AM EDT [facility] Hemoglobin 11.5(L) 13.2 - 17.1 g/dL 10/26/2024 3:48 AM EDT [facility] Hematocrit 33.0(L) 38.5 - 50.0 % 10/26/2024 3:48 AM EDT [facility] MCV 89.6 80.0 - 100.0 fL 10/26/2024 3:48 AM EDT [facility] MCH 31.1 27.0 - 33.0 pg 10/26/2024 3:48 AM EDT [facility] MCHC 34.8 32.0 - 36.0 g/dL 10/26/2024 3:48 AM EDT [facility] RDW 19.3(H) 11.0 - 15.0 % 10/26/2024 3:48 AM EDT [facility] Platelets 67(L) 140 - 400 10E3/uL 10/26/2024 3:48 AM EDT [facility] MPV 7.9 7.5 - 11.5 fL 10/26/2024 3:48 AM EDT [facility] Whole Blood 10/26/2024 3:31 AM EDT 10/26/2024 3:40 AM EDT us Eber Quinones MD LAB BLOOD ORDERABLES Fin al Result [facility] [address] * (ABNORMAL) Protime-INR (10/26/2024 3:31 AM EDT) Protime 27.0(H) 12.1 - 15.1 seconds 10/26/2024 3:51 AM EDT [facility] INR 2.4(H) 0.9 - 1.1 10/26/2024 3:51 AM EDT [facility] Comment: RECOMMENDED THERAPEUTIC RANGES USING INR : Stable oral anticoagulant therapy: 2.0 - 3.0 Mechanical prosthetic heart valve: 2.5 - 3.5 Recurrent acute myocardial infarction: 2.5 - 3.5 Plasma 10/26/2024 3:31 AM EDT 10/26/2024 3:40 AM EDT Result [facility] Eber Quinones MD LAB BLOOD ORDERABLES Fin al Result Performing Organization Address [facility] Co de Phone Number [facility] [address] [facility] * (ABNORMAL) Fibrinogen (10/26/2024 3:31 AM EDT) [facility] Signature Fibrinogen 104(L) 218 - 406 mg/dL 10/26/2024 3:56 AM EDT [facility] Plasma 10/26/2024 3:31 AM EDT 10/26/2024 3:40 AM EDT Result [facility] Eber Quinones MD LAB BLOOD ORDERABLES Fin al Result Performing Organization Address [facility] de Phone Number [facility] [address] [facility] * Transfuse Fresh Frozen Plasma (10/26/2024 3:16 AM EDT) Result [facility] Ben Blake MD NURSING TREATMENT ORDERABLES - BLOOD ADMIN Final Result * Transfuse Fresh Frozen Plasma (10/26/2024 3:15 AM EDT) Result [facility] Ben Blake MD NURSING TREATMENT ORDERABLES - BLOOD ADMIN Final Result * Transfuse RBC (10/26/2024 3:14 AM EDT) Result [facility] Ben Blake MD NURSING TREATMENT ORDERABLES - BLOOD ADMIN Final Result * Transfuse RBC (10/26/2024 3:14 AM EDT) Result [facility] Ben Blake MD NURSING TREATMENT ORDERABLES - BLOOD ADMIN Final Result * Transfuse RBC (10/26/2024 2:40 AM EDT) Ben Blake MD NURSING TREATMENT ORDERABLES - BLOOD ADMIN Final Result * Transfuse Fresh Frozen Plasma (10/26/2024 2:39 AM EDT) Result Tiburcio Blake MD NURSING TREATMENT ORDERABLES - BLOOD ADMIN Final Result * Transfuse Fresh Frozen Plasma (10/26/2024 2:24 AM EDT) Result [facility] Ben Blake MD NURSING TREATMENT ORDERABLES - BLOOD ADMIN Final Result * Transfuse Fresh Frozen Plasma (10/26/2024 2:03 AM EDT) Result [facility] Ben Blake MD NURSING TREATMENT ORDERABLES - BLOOD ADMIN Final Result * Transfuse RBC (10/26/2024 2:01 AM EDT) Result [facility] Ben Blake MD NURSING TREATMENT ORDERABLES - BLOOD ADMIN Final Result * Transfuse RBC (10/26/2024 1:45 AM EDT) Result [facility] Ben Blake MD NURSING TREATMENT ORDERABLES - BLOOD ADMIN Final Result * Transfuse RBC (10/26/2024 1:45 AM EDT) Result [facility] Ben Blake MD NURSING TREATMENT ORDERABLES - BLOOD ADMIN Final Result * (ABNORMAL) POC INR (10/26/2024 1:43 AM EDT) [facility] Prothrombin Time INR, POC 1.9(H) 0.8 [...] AM EDT 10/27/2024 6:51 AM EDT Result [facility] us Semaj Mcnair III, MD POINT OF CARE TEST ORDERABLES Final Result [facility] [address] [place], [place] [address] * Transfuse Fresh Frozen Plasma (10/26/2024 1:41 AM EDT) Ben Blake MD NURSING TREATMENT ORDERABLES - BLOOD ADMIN Final Result * Transfuse RBC (10/26/2024 1:40 AM EDT) Ben Blake MD NURSING TREATMENT ORDERABLES - BLOOD ADMIN Final Result * POC Sample Type (10/26/2024 1:40 AM EDT) POC Sample Type Arterial 10/26/2024 2:32 AM EDT [facility] Blood, Arterial 10/26/2024 1 :40 AM EDT 10/26/2024 2:32 AM EDT Semaj Mcnair III, MD POINT OF CARE TEST ORDERABLES Final Result Performing Organization Address [facility] de Phone Number [facility] [address] [place] [address]. [address] * POC Anion Gap (10/26/2024 1:40 AM EDT) Pathologist [facility] POC Anion Gap, Arterial 13 3 - 16 mmol/L 10/26/2024 2:32 AM EDT [facility] Blood, Arterial 10/26/2024 1 :40 AM EDT 10/26/2024 2:32 AM EDT Result [facility] us Semaj Mcnair III, MD POINT OF CARE TEST ORDERABLES Final Result Performing Organization Address City/[facility] Co de Phone Number [facility] [address] [place] [address]. [address] * POC Chloride (10/26/2024 1:40 AM EDT) POC Chloride 104 98 - 110 mmol/L 10/26/2024 2:32 AM EDT [facility] Blood, Arterial 10/26/2024 1 :40 AM EDT 10/26/2024 2:32 AM EDT us Semaj Mcnair III, MD POINT OF CARE TEST ORDERABLES Final Result [facility] [address] [facility], [place]. [address] * (ABNORMAL) POC Hemoglobin (10/26/2024 1:40 AM EDT) POC Hemoglobin 7.4(L) 14.0 - 18.0 g/dL 10/26/2024 2:32 AM EDT [facility] Blood, Arterial 10/26/2024 1 :40 AM EDT 10/26/2024 2:32 AM EDT us Semaj Mcnair III, MD POINT OF CARE TEST ORDERABLES Final Result Performing Organization Address [facility] Co de Phone Number [facility] [address] [place], [place] [address]ue [facility], [place]. [address] * (ABNORMAL) POC hematocrit (10/26/2024 1:40 AM EDT) Pathologist [facility] POC Hematocrit 22.0(L) 40 - 52 % 10/26/2024 2:32 AM EDT [facility] Blood, Arterial 10/26/2024 1 :40 AM EDT 10/26/2024 2:32 AM EDT us Semaj Mcnair III, MD POINT OF CARE TEST ORDERABLES Final Result Performing Organization Address City/[facility] Co de Phone Number [facility] [address] [facility], [place]. [address] * (ABNORMAL) POC Lactate (10/26/2024 1:40 AM EDT) POC Lactate 2.30(H) 0.50 - 2.20 mmol/L 10/26/2024 2:32 AM EDT [facility] Blood, Arterial 10/26/2024 1 :40 AM EDT 10/26/2024 2:32 AM EDT us Semaj Mcnair III, MD POINT OF CARE TEST ORDERABLES Final Result Performing Organization Address City/[facility] Co de Phone Number [facility] [address] [facility]. [address] * (ABNORMAL) POC Glucose (10/26/2024 1:40 AM EDT) POC Glucose, Arterial 116(H) 70 - 100 mg/dL 10/26/2024 2:32 AM EDT [facility] Blood, Arterial 10/26/2024 1 :40 AM EDT 10/26/2024 2:32 AM EDT us Semaj Mcnair III, MD POINT OF CARE TEST ORDERABLES Final Result Performing Organization Address [facility] Co de Phone Number [facility] [address] * (ABNORMAL) POC Ionized Calcium (10/26/2024 1:40 AM EDT) POC Ionized Calcium 4.10(L) 4.50 - 5.30 mg/dL 10/26/2024 2:32 AM EDT [facility] Blood, Arterial 10/26/2024 1 :40 AM EDT 10/26/2024 2:32 AM EDT us Semaj Mcnair III, MD POINT OF CARE TEST ORDERABLES Final Result Performing Organization Address City/[facility] Co de Phone Number [facility] [address] [place] [address]. [address] * (ABNORMAL) POC Potassium (10/26/2024 1:40 AM EDT) POC Potassium 2.6(LL) 3.5 - 5.3 mmol/L 10/26/2024 2:32 AM EDT [facility] Blood, Arterial 10/26/2024 1 :40 AM EDT 10/26/2024 2:32 AM EDT us Semaj Mcnair III, MD POINT OF CARE TEST ORDERABLES Final Result Performing Organization Address City/[facility]/ZIP Co de Phone Number [facility] [address] [facility], [place]. [address] * (ABNORMAL) POC Sodium (10/26/2024 1:40 AM EDT) POC Sodium 135(L) 136 - 146 mmol/L 10/26/2024 2:32 AM EDT [facility] Blood, Arterial 10/26/2024 1 :40 AM EDT 10/26/2024 2:32 AM EDT us Semaj Mcnair III, MD POINT OF CARE TEST ORDERABLES Final Result Performing Organization Address [facility] Co de Phone Number [facility] [address] [place] [facility], [place]. [address] * (ABNORMAL) POC TCO2 (10/26/2024 1:40 AM EDT) POC TCO2, Arterial 19(L) 23 - 27 mmol/L 10/26/2024 2:32 AM EDT [facility] Blood, Arterial 10/26/2024 1 :40 AM EDT 10/26/2024 2:32 AM EDT us Semaj Mcnair III, MD POINT OF CARE TEST ORDERABLES Final Result Performing Organization Address City/[facility] Co de Phone Number [facility] [place]. [address] * (ABNORMAL) POC O2 SAT (10/26/2024 1:40 AM EDT) POC O2 Saturation, Arterial 99(H) 95 - 98 % 10/26/2024 2:32 AM EDT [facility] Blood, Arterial 10/26/2024 1 :40 AM EDT 10/26/2024 2:32 AM EDT us Semaj Mcnair III, MD POINT OF CARE TEST ORDERABLES Final Result Performing Organization Address City/[facility]/ZIP Co de Phone Number [facility] [address] [facility], [place]. [address] * (ABNORMAL) POC Base Excess (10/26/2024 1:40 AM EDT) POC Base Excess, Arterial -7(L) -2 - 3 mmol/L 10/26/2024 2:32 AM EDT [facility] Blood, Arterial 10/26/2024 1 :40 AM EDT 10/26/2024 2:32 AM EDT us Semaj Mcnair III, MD POINT OF CARE TEST ORDERABLES Final Result Performing Organization Address [facility] Co de Phone Number [facility] [address] [facility], [place]. [address] * (ABNORMAL) POC HCO3 (10/26/2024 1:40 AM EDT) POC HCO3, Arterial 18(L) 22 - 26 mmol/L 10/26/2024 2:32 AM EDT [facility] Blood, Arterial 10/26/2024 1 :40 AM EDT 10/26/2024 2:32 AM EDT us Semaj Mcnair III, MD POINT OF CARE TEST ORDERABLES Final Result Performing Organization Address City/[facility] Co de Phone Number [facility] [address] [facility], [place]. [address] * (ABNORMAL) POC PO2 (10/26/2024 1:40 AM EDT) POC pO2, Arterial 145(H) 80 - 100 mm Hg 10/26/2024 2:32 AM EDT [facility] Blood, Arterial 10/26/2024 1 :40 AM EDT 10/26/2024 2:32 AM EDT us Semaj Mcnair III, MD POINT OF CARE TEST ORDERABLES Final Result Performing Organization Address [facility] Co de Phone Number [facility] [address]. [address] * (ABNORMAL) POC PCO2 (10/26/2024 1:40 AM EDT) POC pCO2, Arterial 33(L) 35 - 45 mm Hg 10/26/2024 2:32 AM EDT [facility] Blood, Arterial 10/26/2024 1 :40 AM EDT 10/26/2024 2:32 AM EDT Semaj Mcnair III, MD POINT OF CARE TEST ORDERABLES Final Result Performing Organization Address [facility] Co de Phone Number [facility] [address]. [address] * POC pH (10/26/2024 1:40 AM EDT) Pathologist [facility] POC pH, Arterial 7.35 7.35 - 7.45 10/26/2024 2:32 AM EDT [facility] Blood, Arterial 10/26/2024 1 :40 AM EDT 10/26/2024 2:32 AM EDT Semaj Mcnair III, MD POINT OF CARE TEST ORDERABLES Final Result Performing Organization Address [facility] Co de Phone Number [facility] [address] [place]. [address] * Transfuse Fresh Frozen Plasma (10/26/2024 1:20 AM EDT) us Ben Blake MD NURSING TREATMENT ORDERABLES - BLOOD ADMIN Final Result * Transfuse RBC (10/26/2024 12:56 AM EDT) us Ben Blake MD NURSING TREATMENT ORDERABLES - BLOOD ADMIN Final Result * (ABNORMAL) POC INR (10/26/2024 12:41 AM EDT) Prothrombin Time INR, POC 2.0(H) 0.8 - 1.4 10/27/2024 6:51 AM EDT [facility] Comment: Test results may vary [...] TEST ORDERABLES Final Result Performing Organization Address City/[facility]/ZIP Co de Phone Number [facility] [address] [facility]. [address] * POC Sample Type (10/26/2024 12:39 AM EDT) POC Sample Type Arterial 10/26/2024 1:38 AM EDT [facility] Blood, Arterial 10/26/2024 1 2:39 AM EDT 10/26/2024 1:38 AM EDT us Semaj Mcnair III, MD POINT OF CARE TEST ORDERABLES Final Result Performing Organization Address [facility] Co de Phone Number [facility] [address] * POC Anion Gap (10/26/2024 12:39 AM EDT) POC Anion Gap, Arterial 13 3 - 16 mmol/L 10/26/2024 1:38 AM EDT [facility] Blood, Arterial 10/26/2024 1 2:39 AM EDT 10/26/2024 1:38 AM EDT us Semaj Mcnair III, MD POINT OF CARE TEST ORDERABLES Final Result Performing Organization Address City/[facility] Co de Phone Number [facility] [address] * POC Chloride (10/26/2024 12:39 AM EDT) POC Chloride 103 98 - 110 mmol/L 10/26/2024 1:38 AM EDT [facility] Blood, Arterial 10/26/2024 1 2:39 AM EDT 10/26/2024 1:38 AM EDT us Semaj Mcnair III, MD POINT OF CARE TEST ORDERABLES Final Result Performing Organization Address City/[facility] Co de Phone Number [facility] [address] [place] [address]. [address] * (ABNORMAL) POC Hemoglobin (10/26/2024 12:39 AM EDT) Pathologist [facility] POC Hemoglobin 7.9(L) 14.0 - 18.0 g/dL 10/26/2024 1:38 AM EDT [facility] Blood, Arterial 10/26/2024 1 2:39 AM EDT 10/26/2024 1:38 AM EDT us Semaj Mcnair III, MD POINT OF CARE TEST ORDERABLES Final Result Performing Organization Address [facility] de Phone Number [facility] [address] [place] [address]. [address] * (ABNORMAL) POC hematocrit (10/26/2024 12:39 AM EDT) Pathologist [facility] POC Hematocrit 23.0(L) 40 - 52 % 10/26/2024 1:38 AM EDT [facility] Blood, Arterial 10/26/2024 1 2:39 AM EDT 10/26/2024 1:38 AM EDT us Semaj Mcnair III, MD POINT OF CARE TEST ORDERABLES Final Result Performing Organization Address City/[facility] Co de Phone Number [facility] [address] [place] [address]. [address] * POC Lactate (10/26/2024 12:39 AM EDT) POC Lactate 1.39 0.50 - 2.20 mmol/L 10/26/2024 1:38 AM EDT [facility] Blood, Arterial 10/26/2024 1 2:39 AM EDT 10/26/2024 1:38 AM EDT us Semaj Mcnair III, MD POINT OF CARE TEST ORDERABLES Final Result Performing Organization Address City/[facility]/ZIP Co de Phone Number [facility] [address] [place] [address]. [address] * (ABNORMAL) POC Glucose (10/26/2024 12:39 AM EDT) Pathologist [facility] POC Glucose, Arterial 116(H) 70 - 100 mg/dL 10/26/2024 1:38 AM EDT [facility] Blood, Arterial 10/26/2024 1 2:39 AM EDT 10/26/2024 1:38 AM EDT us Semaj Mcnair III, MD POINT OF CARE TEST ORDERABLES Final Result Performing Organization Address [facility] de Phone Number [facility] [address] [place] [address]. [address] * (ABNORMAL) POC Ionized Calcium (10/26/2024 12:39 AM EDT) Pathologist [facility] POC Ionized Calcium 4.30(L) 4.50 - 5.30 mg/dL 10/26/2024 1:38 AM EDT [facility] Blood, Arterial 10/26/2024 1 2:39 AM EDT 10/26/2024 1:38 AM EDT us Semaj Mcnair III, MD POINT OF CARE TEST ORDERABLES Final Result Performing Organization Address [facility] Co de Phone Number [facility] [address] [place] [address] * (ABNORMAL) POC Potassium (10/26/2024 12:39 AM EDT) POC Potassium 2.4(LL) 3.5 - 5.3 mmol/L 10/26/2024 1:38 AM EDT [facility] Blood, Arterial 10/26/2024 1 2:39 AM EDT 10/26/2024 1:38 AM EDT us Semaj Mcnair III, MD POINT OF CARE TEST ORDERABLES Final Result Performing Organization Address City/[facility] Co de Phone Number [facility] [address] [facility]. [address] * POC Sodium (10/26/2024 12:39 AM EDT) Pathologist [facility] POC Sodium 136 136 - 146 mmol/L 10/26/2024 1:38 AM EDT [facility] Blood, Arterial 10/26/2024 1 2:39 AM EDT 10/26/2024 1:38 AM EDT Semaj Mcnair III, MD POINT OF CARE TEST ORDERABLES Final Result Performing Organization Address [facility] Co de Phone Number [facility] [address] [place] [address]. [address] * (ABNORMAL) POC TCO2 (10/26/2024 12:39 AM EDT) Pathologist [facility] POC TCO2, Arterial 21(L) 23 - 27 mmol/L 10/26/2024 1:38 AM EDT [facility] Blood, Arterial 10/26/2024 1 2:39 AM EDT 10/26/2024 1:38 AM EDT us Semaj Mcnair III, MD POINT OF CARE TEST ORDERABLES Final Result Performing Organization Address [facility] Co de Phone Number [facility] [address] [facility]. [address] * POC O2 SAT (10/26/2024 12:39 AM EDT) Pathologist [facility] POC O2 Saturation, Arterial 98 95 - 98 % 10/26/2024 1:38 AM EDT [facility] Blood, Arterial 10/26/2024 1 2:39 AM EDT 10/26/2024 1:38 AM EDT us Semaj Mcnair III, MD POINT OF CARE TEST ORDERABLES Final Result Performing Organization Address City/[facility] Co de Phone Number [facility] [address] [place] [address]. [address] * (ABNORMAL) POC Base Excess (10/26/2024 12:39 AM EDT) POC Base Excess, Arterial -7(L) -2 - 3 mmol/L 10/26/2024 1:38 AM EDT [facility] Blood, Arterial 10/26/2024 1 2:39 AM EDT 10/26/2024 1:38 AM EDT us Semaj Mcnair III, MD POINT OF CARE TEST ORDERABLES Final Result Performing Organization Address [facility] Co de Phone Number [facility] [address] * (ABNORMAL) POC HCO3 (10/26/2024 12:39 AM EDT) POC HCO3, Arterial 20(L) 22 - 26 mmol/L 10/26/2024 1:38 AM EDT [facility] Blood, Arterial 10/26/2024 1 2:39 AM EDT 10/26/2024 1:38 AM EDT us Semaj Mcnair III, MD POINT OF CARE TEST ORDERABLES Final Result Performing Organization Address [facility] Co de Phone Number [facility] [address] [facility], [place]. [address] * (ABNORMAL) POC PO2 (10/26/2024 12:39 AM EDT) POC pO2, Arterial 117(H) 80 - 100 mm Hg 10/26/2024 1:38 AM EDT [facility] Blood, Arterial 10/26/2024 1 2:39 AM EDT 10/26/2024 1:38 AM EDT Semaj Mcnair III, MD POINT OF CARE TEST ORDERABLES Final Result Performing Organization Address City/[facility] Co de Phone Number [facility] [address] * (ABNORMAL) POC PCO2 (10/26/2024 12:39 AM EDT) POC pCO2, Arterial 46(H) 35 - 45 mm Hg 10/26/2024 1:38 AM EDT [facility] Blood, Arterial 10/26/2024 1 2:39 AM EDT 10/26/2024 1:38 AM EDT Semaj Mcnair III, MD POINT OF CARE TEST ORDERABLES Final Result Performing Organization Address [facility] Co de Phone Number [facility] [address] [facility], [place]. [address] * (ABNORMAL) POC pH (10/26/2024 12:39 AM EDT) POC pH, Arterial 7.24(L) 7.35 - 7.45 10/26/2024 1:38 AM EDT [facility] Blood, Arterial 10/26/2024 1 2:39 AM EDT 10/26/2024 1:38 AM EDT Semaj Mcnair III, MD POINT OF CARE TEST ORDERABLES Final Result Performing Organization Address [facility] Co de Phone Number [facility] [address] [facility], [place]. [address] * Transfuse Platelets (10/26/2024 12:37 AM [...] Culture Result No Growth After 3 Days [facility] Surgical Swab ABDOMEN / Unknown 12:03 AM EDT Comment:2.) Ascites Anaerobhic culture Fungus culture Routine culture plus stain Narrative [facility] - 10/28/2024 9:38 PM EDT 2.) Ascites Anaerobhic culture Fungus culture Routine culture plus stain 2.) Ascites Semaj Mcnair III, MD MICROBIOLOGY - GENE RAL ORDERABLES Final Result [facility] [address] [place] [address], [facility] * Surgical Pathology Exam (10/26/2024 12:00 AM EDT) 10/26/2024 10/27/2024 Narrative [facility] - 10/26/2024 12:00 AM EDT CASE: [id number] PATIENT: BLAIR GILBERT Clinical History: Liver - kidney transplant Pre-Operative Diagnosis: Alcoholic cirrhosis of liver Post-Operative Diagnosis: Alcoholic cirrhosis of liver Specimen(s) Submitted: A. prairie band liver CPT Code(s): 32220 X 1; 29141 X 5 Additional Information: FINAL DIAGNOSIS: A. 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 - Negative for neoplasm. - Increased hepatocellular iron deposition (3+; Modified Scheuer). Gall bladder: -Intramucosal and submucosal vascular congestion and hemorrhage. - Negative for dysplasia or malignancy. Gross Description: Received in formalin, labeled Blair Gilbert and prairie band liver , is a 2338-gram, hepatectomy [...] discrete masses or other lesions are identified. Quality Control Lead sections are submitted in cassettes [facility] [email or web address] as follows: A1: Hilar margins, en face. [...] signing this report is located at [facility], [address] [place] [address], [place], [place], [facility], , CLIA ID: [id number] us Semaj Mcnair III, MD PATHOLOGY/CYTOLOGY ORDERABLES Final Result Performing Organization Address [facility]/ZIP Co de Phone Number [facility] * Transfuse [...] 0.8 - 1.4 10/27/2024 6:51 AM EDT [facility] Comment: Test results may vary [...] Organization Address [facility]/ZIP Co de Phone Number [facility] [address] [place] [address] * POC Sample Type (10/25/2024 11:40 PM EDT) Pathologist [facility] POC Sample Type Arterial 10/25/2024 11:57 PM EDT [facility] Blood, Arterial 10/25/2024 1 1:40 PM EDT 10/25/2024 11:57 PM EDT us Semaj Mcnair III, MD POINT OF CARE TEST ORDERABLES Final Result [facility] [address] [place] [address]. [address] * POC Anion Gap (10/25/2024 11:40 PM EDT) [facility] POC Anion Gap, Arterial 13 3 - 16 mmol/L 10/25/2024 11:57 PM EDT [facility] Blood, Arterial 10/25/2024 1 1:40 PM EDT 10/25/2024 11:57 PM EDT us Semaj Mcnair III, MD POINT OF CARE TEST ORDERABLES Final Result Performing Organization Address City/[facility]/ZIP Co de Phone Number [facility] [address] [place] [address]. [address] * POC Chloride (10/25/2024 11:40 PM EDT) [facility] POC Chloride 102 98 - 110 mmol/L 10/25/2024 11:57 PM EDT [facility] Blood, Arterial 10/25/2024 1 1:40 PM EDT 10/25/2024 11:57 PM EDT us Semaj Mcnair III, MD POINT OF CARE TEST ORDERABLES Final Result Performing Organization Address City/[facility] Co de Phone Number [facility] [address] [facility]. [address] * (ABNORMAL) POC Hemoglobin (10/25/2024 11:40 PM EDT) [facility] POC Hemoglobin 6.6(L) 14.0 - 18.0 g/dL 10/25/2024 11:57 PM EDT [facility] Blood, Arterial 10/25/2024 1 1:40 PM EDT 10/25/2024 11:57 PM EDT us Semaj Mcnair III, MD POINT OF CARE TEST ORDERABLES Final Result Performing Organization Address City/[facility]/ZIP Co de Phone Number [facility] [address] [place], [place]. [address] * (ABNORMAL) POC hematocrit (10/25/2024 11:40 PM EDT) POC Hematocrit 19.0(L) 40 - 52 % 10/25/2024 11:57 PM EDT [facility] Blood, Arterial 10/25/2024 1 1:40 PM EDT 10/25/2024 11:57 PM EDT us Semaj Mcnair III, MD POINT OF CARE TEST ORDERABLES Final Result Performing Organization Address [facility] Co de Phone Number [facility] [address] [place] [facility], [place]. [address] * POC Lactate (10/25/2024 11:40 PM EDT) POC Lactate 1.36 0.50 - 2.20 mmol/L 10/25/2024 11:57 PM EDT [facility] Blood, Arterial 10/25/2024 1 1:40 PM EDT 10/25/2024 11:57 PM EDT us Semaj Mcnair III, MD POINT OF CARE TEST ORDERABLES Final Result Performing Organization Address City/[facility] Co de Phone Number [facility] [address] [place] [facility] [place] [place]. [address] * (ABNORMAL) POC Glucose (10/25/2024 11:40 PM EDT) POC Glucose, Arterial 101(H) 70 - 100 mg/dL 10/25/2024 11:57 PM EDT [facility] Blood, Arterial 10/25/2024 1 1:40 PM EDT 10/25/2024 11:57 PM EDT us Semaj Mcnair III, MD POINT OF CARE TEST ORDERABLES Final Result [facility] [address] [place] [address]. [address] * POC Ionized Calcium (10/25/2024 11:40 PM EDT) POC Ionized Calcium 4.50 4.50 - 5.30 mg/dL 10/25/2024 11:57 PM EDT [facility] Blood, Arterial 10/25/2024 1 1:40 PM EDT 10/25/2024 11:57 PM EDT us Semaj Mcnair III, MD POINT OF CARE TEST ORDERABLES Final Result Performing Organization Address City/[facility]/ZIP Co de Phone Number [facility] [address] [place] [address]. [address] * (ABNORMAL) POC Potassium (10/25/2024 11:40 PM EDT) Pathologist [facility] POC Potassium 1.9(LL) 3.5 - 5.3 mmol/L 10/25/2024 11:57 PM EDT [facility] Blood, Arterial 10/25/2024 1 1:40 PM EDT 10/25/2024 11:57 PM EDT us Semaj Mcnair III, MD POINT OF CARE TEST ORDERABLES Final Result [facility] [address] [place] [address]. [address] * (ABNORMAL) POC Sodium (10/25/2024 11:40 PM EDT) POC Sodium 135(L) 136 - 146 mmol/L 10/25/2024 11:57 PM EDT [facility] Blood, Arterial 10/25/2024 1 1:40 PM EDT 10/25/2024 11:57 PM EDT us Semaj Mcnair III, MD POINT OF CARE TEST ORDERABLES Final Result [facility] [address] * (ABNORMAL) POC TCO2 (10/25/2024 11:40 PM EDT) POC TCO2, Arterial 21(L) 23 - 27 mmol/L 10/25/2024 11:57 PM EDT [facility] Blood, Arterial 10/25/2024 1 1:40 PM EDT 10/25/2024 11:57 PM EDT us Semaj Mcnair III, MD POINT OF CARE TEST ORDERABLES Final Result Performing Organization Address [facility]/ZIP Co de Phone Number [facility] [address] [place], [place]. [address] * POC O2 SAT (10/25/2024 11:40 PM EDT) POC O2 Saturation, Arterial 98 95 - 98 % 10/25/2024 11:57 PM EDT [facility] Blood, Arterial 10/25/2024 1 1:40 PM EDT 10/25/2024 11:57 PM EDT Semaj Mcnair III, MD POINT OF CARE TEST ORDERABLES Final Result Performing Organization Address City/[facility]/ZIP Co de Phone Number [facility] [address] [place], [place]. [address] * (ABNORMAL) POC Base Excess (10/25/2024 11:40 PM EDT) POC Base Excess, Arterial -6(L) -2 - 3 mmol/L 10/25/2024 11:57 PM EDT [facility] Blood, Arterial 10/25/2024 1 1:40 PM EDT 10/25/2024 11:57 PM EDT us Semaj Mcnair III, MD POINT OF CARE TEST ORDERABLES Final Result Performing Organization Address City/[facility]/ZIP Co de Phone Number [facility] [address] [place] [facility] [place], [place]. [address] * (ABNORMAL) POC HCO3 (10/25/2024 11:40 PM EDT) POC HCO3, Arterial 20(L) 22 - 26 mmol/L 10/25/2024 11:57 PM EDT [facility] Blood, Arterial 10/25/2024 1 1:40 PM EDT 10/25/2024 11:57 PM EDT us Semaj Mcnair III, MD POINT OF CARE TEST ORDERABLES Final Result Performing Organization Address [facility]/ZIP Co de Phone Number [facility] [address] [facility], [place]. [address] * (ABNORMAL) POC PO2 (10/25/2024 11:40 PM EDT) POC pO2, Arterial 107(H) 80 - 100 mm Hg 10/25/2024 11:57 PM EDT [facility] Blood, Arterial 10/25/2024 1 1:40 PM EDT 10/25/2024 11:57 PM EDT us Semaj Mcnair III, MD POINT OF CARE TEST ORDERABLES Final Result Performing Organization Address City/[facility]/ZIP Co de Phone Number [facility] [address] [place], [place]. [address] * POC PCO2 (10/25/2024 11:40 PM EDT) POC pCO2, Arterial 41 35 - 45 mm Hg 10/25/2024 11:57 PM EDT [facility] Blood, Arterial 10/25/2024 1 1:40 PM EDT 10/25/2024 11:57 PM EDT us Semaj Mcnair III, MD POINT OF CARE TEST ORDERABLES Final Result Performing Organization Address [facility] Co de Phone Number [facility] [address] [place], [place]. [address] * (ABNORMAL) POC pH (10/25/2024 11:40 PM EDT) POC pH, Arterial 7.29(L) 7.35 - 7.45 10/25/2024 11:57 PM EDT [facility] Blood, Arterial 10/25/2024 1 1:40 PM EDT 10/25/2024 11:57 PM EDT us Semaj Mcnair III, MD POINT OF CARE TEST ORDERABLES Final Result Performing Organization Address [facility] Co de Phone Number [facility] [address] * Urine culture (10/25/2024 11:08 PM EDT) Culture Result <1,000 cfu/mL [facility] Culture Result Skin/Urogeni rony Mckayla. No Further Workup. [facility] Newly Placed Berkowitz Urine URINE SPECIMEN / Unknown 10/25/2024 11:08 PM EDT Comment:urine culture Narrative [facility] - 10/28/2024 9:59 AM EDT urine culture urine culture us Semaj Mcnair III, MD MICROBIOLOGY - GENE RAL ORDERABLES Final Result Performing Organization Address [facility] Co de Phone Number [facility] [address] * X-ray Portable Chest (10/25/2024 10:19 [...] - 2.2 mmol/L 10/25/2024 10:39 PM EDT [facility] Plasma 10/25/2024 10:1 7 PM EDT 10/25/2024 10:17 PM EDT Ben Blake MD LAB BLOOD ORDERABLES Final Re sult [facility] [address] [place], [place]. [address] * (ABNORMAL) Ferritin (10/25/2024 10:17 PM EDT) Ferritin 623.2(H) 23.9 - 336.2 ng/mL 10/25/2024 11:02 PM EDT [facility] Serum 10/25/2024 10:1 7 PM EDT 10/25/2024 10:17 PM EDT Leandra Og MD LAB BLOOD ORDERABLES F inal Result Performing Organization Address [facility]/ZIP Co de Phone Number [facility] [address] [place], [place]. [address] * Iron Studies (Iron + TIBC) (10/25/2024 10:17 PM EDT) Iron 128 50 - 212 ug/dL 10/25/2024 10:44 PM EDT [facility] % Iron Saturation SEE COMMENT 15.0 - 55.0 % 10/25/2024 10:44 PM EDT [facility] Comment:Unable to calculate result because contributing result outside reportable range.. TIBC SEE COMMENT 261 - 462 ug/dL 10/25/2024 10:44 PM EDT [facility] Comment:Unable to calculate result because contributing result outside reportable range.. Serum 10/25/2024 10:1 7 PM EDT 10/25/2024 10:17 PM EDT Leandra Og MD LAB BLOOD ORDERABLES F inal Result [facility] [address] * PTH (10/25/2024 10:17 PM EDT) PTH 36.0 12.0 - 88.0 pg/mL 10/25/2024 11:01 PM EDT [facility] Serum 10/25/2024 10:1 7 PM EDT 10/25/2024 10:17 PM EDT Leandra Og MD LAB BLOOD ORDERABLES F inal Result [facility] [address] * HIV 1+2 Antibody/Antigen with Reflex (10/25/2024 10:17 PM EDT) HIV 1+2 AB/AGN Nonreactive Nonreactive 10/25/2024 11:03 PM EDT [facility] Serum 10/25/2024 10:1 7 PM EDT 10/25/2024 10:16 PM EDT Narrative [facility] - 10/25/2024 11:03 PM EDT \HIVRNR Leandra Og MD LAB BLOOD ORDERABLES F inal Result [facility] [address] [place], [place]. [address] * Hepatitis B Core Antibody (10/25/2024 10:17 PM EDT) Hep B Core Total Ab Nonreactive Nonreactive 10/25/2024 11:07 PM EDT [facility] Comment:Health Department no tified in accordance with reportable infectious disease guidelines. Serum 10/25/2024 10:1 7 PM EDT 10/25/2024 10:17 PM EDT Narrative [facility] - 10/25/2024 11:07 PM EDT A nonreactive final interpretation indicates that anti-HBc antibodies were not detected in the sample; it is possible that the individual is not infected with HBV. us Leandra Og MD LAB BLOOD ORDERABLES F inal Result Performing Organization Address City/[facility] Co de Phone Number [facility] [address] * Hepatitis C Antibody (10/25/2024 10:17 PM EDT) Pathologist [facility] HCV Ab Nonreactive Nonreactive 10/25/2024 11:16 PM EDT [facility] Comment:Health Department no tified in accordance with reportable infectious disease guidelines. Serum 10/25/2024 10:1 7 PM EDT 10/25/2024 10:17 PM EDT Narrative [facility] - 10/25/2024 11:16 PM EDT Antibodies to HCV not detected; does not exclude the possibility of exposure to HCV. Leandra Og MD LAB BLOOD ORDERABLES F inal Result Performing Organization Address [facility] Co de Phone Number [facility] [address] [facility]. [address] * (ABNORMAL) Hepatitis B Surface Antibody, Quantitati (10/25/2024 10:17 PM EDT) [facility] HBSAB NUMBER 10.70(H) 0.00 - 9.99 mIU/mL 10/25/2024 11:52 PM EDT [facility] Hep B S Ab Equivocal (A) Nonreactive 10/25/2024 11:52 PM EDT [facility] Serum 10/25/2024 10:1 7 PM EDT 10/25/2024 10:17 PM EDT us Leandra Og MD LAB BLOOD ORDERABLES F inal Result Performing Organization Address [facility] Co de Phone Number [facility] [address] * Hepatitis B surface antigen (10/25/2024 10:17 PM EDT) Hep B Surface Ag Nonreactive Nonreactive 10/25/2024 11:12 PM EDT [facility] Comment:Health Department no tified in accordance with reportable infectious disease guidelines. Serum 10/25/2024 10:1 7 PM EDT 10/25/2024 10:17 PM EDT Narrative [facility] - 10/25/2024 11:12 PM EDT Specimen is considered negative for HBsAg. us Leandra Og MD LAB BLOOD ORDERABLES F inal Result Performing Organization Address City/[facility] Co de Phone Number [facility] [address] [facility]. [address] * Hepatitis A Antibody Total (10/25/2024 10:17 PM EDT) Anti-HAV Total (IgG + IgM) Nonreactive 10/25/2024 11:13 PM EDT [facility] Serum 10/25/2024 10:1 7 PM EDT 10/25/2024 10:17 PM EDT Narrative [facility] - 10/25/2024 11:13 PM EDT HAV antibodies not detected us Leandra Og MD LAB BLOOD ORDERABLES F inal Result Performing Organization Address [facility] Co de Phone Number [facility] [address] [facility]. [address] * (ABNORMAL) Hepatic Function Panel (10/25/2024 10:17 PM EDT) Total Bilirubin 9.1(H) 0.0 - 1.5 mg/dL 10/25/2024 10:47 PM EDT [facility] Bilirubin, Direct 4.58(H) 0.00 - 0.40 mg/dL 10/25/2024 10:47 PM EDT [facility] AST 51(H) 13 - 39 U/L 10/25/2024 10:47 PM EDT [facility] ALT 23 7 - 52 U/L 10/25/2024 10:47 PM EDT [facility] Alkaline Phosphatase 144(H) 36 - 125 U/L 10/25/2024 10:47 PM EDT [facility] Total Protein 5.5(L) 6.4 - 8.9 g/dL 10/25/2024 10:47 PM EDT [facility] Albumin 3.5 3.5 - 5.7 g/dL 10/25/2024 10:47 PM EDT [facility] Bilirubin, Indirect 4.52(H) 0.00 - 1.10 mg/dL 10/25/2024 10:47 PM EDT [facility] Plasma 10/25/2024 10:1 7 PM EDT 10/25/2024 10:17 PM EDT us Leandra Og MD LAB BLOOD ORDERABLES F inal Result [facility] [address] [place] [address], [facility] * (ABNORMAL) Renal Function Panel w/EGFR (10/25/2024 10:17 PM EDT) Sodium 137 133 - 146 mmol/L 10/25/2024 10:47 PM EDT [facility] Potassium 2.1(LL) 3.5 - 5.3 mmol/L 10/25/2024 10:47 PM EDT [facility] Comment:Critical Result K:2. 1 Called to and read back by: ALICIA CARCAMO RN at: 10/25/2024 22:47:45 by:NANCY Chloride 100 98 - 110 mmol/L 10/25/2024 10:47 PM EDT [facility] CO2 20(L) 21 - 33 mmol/L 10/25/2024 10:47 PM EDT [facility] Anion Gap 17(H) 3 - 16 mmol/L 10/25/2024 10:47 PM EDT [facility] BUN 74(H) 7 - 25 mg/dL 10/25/2024 10:47 PM EDT [facility] Creatinine 3.87(H) 0.60 - 1.30 mg/dL 10/25/2024 10:47 PM EDT [facility] Glucose 114(H) 70 - 100 mg/dL 10/25/2024 10:47 PM EDT [facility] Calcium 9.3 8.6 - 10.3 mg/dL 10/25/2024 10:47 PM EDT [facility] Phosphorus 5.9(H) 2.1 - 4.7 mg/dL 10/25/2024 10:47 PM EDT [facility] Albumin 3.5 3.5 - 5.7 g/dL 10/25/2024 10:47 PM EDT [facility] Osmolality, Calculated 307(H) 278 - 305 mOsm/kg 10/25/2024 10:47 PM EDT [facility] EGFR 19 10/25/2024 10:47 PM EDT [facility] Comment:As [...] MD LAB BLOOD ORDERABLES F inal Result [facility] [address] [facility] [place] [address], [facility] * (ABNORMAL) APTT, NO ANTICOAGULANT (10/25/2024 10:17 PM EDT) aPTT 41.7(H) 25.5 - 35.0 seconds 10/25/2024 10:36 PM EDT [facility] Plasma 10/25/2024 10:1 7 PM EDT 10/25/2024 10:17 PM EDT us Leandra Og MD LAB BLOOD ORDERABLES F inal Result Performing Organization Address City/[facility]/ZIP Co de Phone Number [facility] [address] * (ABNORMAL) Protime-INR (10/25/2024 10:17 PM EDT) Protime 21.7(H) 12.1 - 15.1 seconds 10/25/2024 10:35 PM EDT [facility] INR 1.8(H) 0.9 - 1.1 10/25/2024 10:35 PM EDT [facility] Comment: RECOMMENDED THERAPEUTIC RANGES USING INR : Stable oral anticoagulant therapy: 2.0 - 3.0 Mechanical prosthetic heart valve: 2.5 - 3.5 Recurrent acute myocardial infarction: 2.5 - 3.5 Plasma 10/25/2024 10:1 7 PM EDT 10/25/2024 10:17 PM EDT us Leandra Og MD LAB BLOOD ORDERABLES F inal Result Performing Organization Address [facility]/ZIP Co de Phone Number [facility] [address] * (ABNORMAL) Differential (10/25/2024 10:17 PM EDT) Differential Comments See Note 10/25/2024 10:54 PM EDT [facility] Comment: _Platelets Appear Decreased _Platelet Morphology Normal Scan Result PERFORMED 10/25/2024 10:54 PM EDT [facility] Neutrophils Relative 79.8 40.0 - 80.0 % 10/25/2024 10:54 PM EDT [facility] Lymphocytes Relative 9.6(L) 15.0 - 45.0 % 10/25/2024 10:54 PM EDT [facility] Monocytes Relative 8.9 0.0 - 12.0 % 10/25/2024 10:54 PM EDT [facility] Eosinophils Relative 1.3 0.0 - 8.0 % 10/25/2024 10:54 PM EDT [facility] Basophils Relative 0.4 0.0 - 1.0 % 10/25/2024 10:54 PM EDT [facility] nRBC 0 0 - 0 /100 WBC 10/25/2024 10:54 PM EDT [facility] Neutrophils Absolute 4,948 1,520 - 8,640 /uL 10/25/2024 10:54 PM EDT [facility] Lymphocytes Absolute 595 570 - 4,860 /uL 10/25/2024 10:54 PM EDT [facility] Monocytes Absolute 552 0 - 1,296 /uL 10/25/2024 10:54 PM EDT [facility] Eosinophils Absolute 81 0 - 864 /uL 10/25/2024 10:54 PM EDT [facility] Basophils Absolute 25 0 - 108 /uL 10/25/2024 10:54 PM EDT [facility] PLT Morphology Platelet morphology appears normal 10/25/2024 10:54 PM EDT [facility] Whole Blood 10/25/2024 10:1 7 PM EDT 10/25/2024 10:17 PM EDT us Leandra Og MD LAB BLOOD ORDERABLES F inal Result [facility] [address] [place] [address], [facility] * (ABNORMAL) CBC (10/25/2024 10:17 PM EDT) WBC 6.2 3.8 - 10.8 10E3/uL 10/25/2024 10:54 PM EDT [facility] RBC 2.40(L) 4.20 - 5.80 10E6/uL 10/25/2024 10:54 PM EDT [facility] Hemoglobin 8.3(L) 13.2 - 17.1 g/dL 10/25/2024 10:54 PM EDT [facility] Hematocrit 23.7(L) 38.5 - 50.0 % 10/25/2024 10:54 PM EDT [facility] MCV 98.9 80.0 - 100.0 fL 10/25/2024 10:54 PM EDT [facility] MCH 34.6(H) 27.0 - 33.0 pg 10/25/2024 10:54 PM EDT [facility] MCHC 35.0 32.0 - 36.0 g/dL 10/25/2024 10:54 PM EDT [facility] RDW 17.8(H) 11.0 - 15.0 % 10/25/2024 10:54 PM EDT [facility] Platelets 56(L) 140 - 400 10E3/uL 10/25/2024 10:54 PM EDT [facility] Comment: Specimen checked for clots. None detected. Slide Reviewed for PLT Clumps. None Seen. Platelet Estimate Decreased 10/25/2024 10:54 PM EDT [facility] MPV 8.1 7.5 - 11.5 fL 10/25/2024 10:54 PM EDT [facility] Whole Blood 10/25/2024 10:1 7 PM EDT 10/25/2024 10:17 PM EDT Narrative [facility] - 10/25/2024 10:54 PM EDT Peripheral blood smear was scanned per review criteria approved by the laboratory medical consultant. us Leandra Og MD LAB BLOOD ORDERABLES F inal Result [facility] [address] [place] [address], [facility] * Donor Specific Antibody (DSA) (10/25/2024 10:00 PM EDT) AntiDonor Antibodies The request and specimen(s) for this test have been received and transported to the [facility] [place] at [address] [place] [address]. The [facility] will report results directly to the client. 10/25/2024 10:20 PM EDT [facility] Comment:Testing performed by [facility], [address] [place] [address]. The [facility] report has been forwarded to the appropriate ordering location. Please refer to this report for patient results. Serum 10/25/2024 10:0 0 PM EDT 10/25/2024 10:20 PM EDT Leandra Og MD LAB BLOOD ORDERABLES F inal Result [facility] [address] [place] [address], [facility] * (ABNORMAL) Venous Blood Gas, Line/Syringe (10/25/2024 10:00 PM EDT) PH-Line Draw 7.38 7.32 - 7.42 10/25/2024 10:08 PM EDT [facility] PCO2-Line Draw 33(L) 41 - 51 mm Hg 10/25/2024 10:08 PM EDT [facility] PO2-Line Draw 33 25 - 40 mm Hg 10/25/2024 10:08 PM EDT [facility] HCO3-Line Draw 20(L) 24 - 28 mmol/L 10/25/2024 10:08 PM EDT [facility] CO2 Content-Line Draw 21(L) 25 - 29 mmol/L 10/25/2024 10:08 PM EDT [facility] Base Excess-Line Draw -5.0(L) -2.0 - 3.0 mmol/L 10/25/2024 10:08 PM EDT [facility] %HBO2-Line Draw 53.8 40.0 - 70.0 % 10/25/2024 10:08 PM EDT [facility] Carboxyhgb-Ludivina e Draw 1.9 % 10/25/2024 10:08 PM EDT [facility] Comment: CARBOXYHEMOGLOBIN (CO) REFERENCE RANGES: Non-Smokers: <2 % Smokers: <8 % TOXIC: >20 % Methemoglobin- Line Draw 0.2 0.0 - 1.5 % 10/25/2024 10:08 PM EDT [facility] Reduced Hemoglobin-Ludivina e Draw 44.1(H) 0.0 - 5.0 % 10/25/2024 10:08 PM EDT [facility] Venous, Line Draw 10/25/2024 10:00 PM EDT 10/25/2024 10:04 PM EDT Leandra Og MD LAB BLOOD ORDERABLES F inal Result [facility] [address] * (ABNORMAL) POC Glucose Monitoring Device (10/25/2024 9:56 PM EDT) [facility] POC Glucose Monitoring Device 103(H) 70 - 100 mg/dL 10/25/2024 9:58 PM EDT [facility] Blood 10/25/2024 9:56 PM EDT 10/25/2024 9:57 PM EDT Semaj Mcnair III, MD POINT OF CARE TEST ORDERABLES Final Result Performing Organization Address [facility] Co de Phone Number [facility] [address] * ECG 12 lead (MUSE) (10/25/2024 9:34 PM EDT) 10/25/2024 9:34 PM EDT Narrative MUSE - 10/27/2024 10:08 AM EDT Ventricular Rate: 97 BPM Atrial Rate: 86 BPM QRS Duration: 106 ms QT: 532 ms QTc: 675 ms P [place]: 38 degrees R [place]: -29 degrees T [place]: 32 degrees Diagnosis Line: Critical Test Result: Long QTc , AV Block ^ SINUS RHYTHM WITH PREMATURE VENTRICULAR COMPLEXES ^ PROLONGED QT ^ NONSPECIFIC ST AND T WAVE CHANGES ^ ABNORMAL ECG ^ ^ Confirmed by MD HA, [facility] ([id number]) on 10/27/2024 10:08:26 AM us Leandra Og MD ECG ORDERABLES Final Result Performing Organization Address [facility] Co de Phone Number MUSE * Hepatitis C RNA, Quant Reflex to Genotyp (10/25/2024 8:18 PM EDT) [facility] Units Not Detected IU/mL 10/27/2024 11:03 AM EDT [facility] Comment:Test methodology for HCV RNA quantification is an FDA-approved nucleic acid amplification assay. The Lower Limit of Quantitation (LLOQ) is 15 IU/mL. The linear range of the assay is 15-100,000,000 IU/mL. The Limit of Detection (LoD) is 12.0 IU/mL for EDTA plasma. The reference range is Not Detected. IU log10 See Note log 10 IU/mL 10/27/2024 11:03 AM EDT [facility] Comment:HCV RNA not detected . Plasma 10/25/2024 8:1 8 PM EDT 10/25/2024 10:27 PM EDT us Leandra Og MD LAB BLOOD ORDERABLES F inal Result [facility] [address] [place] [address], [facility] * Urinalysis w/Rfl to Microscopic (10/25/2024 8:18 PM EDT) Color, UA Yellow Yellow,Straw 10/25/2024 10:38 PM EDT [facility] Clarity, UA Clear Clear 10/25/2024 10:38 PM EDT [facility] Specific [place], UA 1.010 1.005 - 1.035 10/25/2024 10:38 PM EDT [facility] pH, UA 6.0 5.0 - 8.0 10/25/2024 10:38 PM EDT [facility] Protein, UA Negative Negative mg/dL 10/25/2024 10:38 PM EDT [facility] Glucose, UA Negative Negative mg/dL 10/25/2024 10:38 PM EDT [facility] Ketones, UA Negative Negative mg/dL 10/25/2024 10:38 PM EDT [facility] Bilirubin, UA Negative Negative 10/25/2024 10:38 PM EDT [facility] Blood, UA Negative Negative 10/25/2024 10:38 PM EDT [facility] Nitrite, UA Negative Negative 10/25/2024 10:38 PM EDT [facility] Urobilinogen, UA <2.0 0.2 - 1.9 mg/dL 10/25/2024 10:38 PM EDT [facility] Leukocyte Esterase, UA Negative Negative 10/25/2024 10:38 PM EDT [facility] Urine 10/25/2024 8:18 PM EDT 10/25/2024 10:35 PM EDT [facility] - 10/25/2024 10:38 PM EDT Microscopic testing is not performed when the dipstick is negative for blood, leukocyte, protein and nitrite. Leandra Og MD URINE ORDERABLES Final Result [facility] [address] [place], [place]. [address] * Toxoplasma gondii antibody, IgG (10/25/2024 8:18 PM EDT) Pathologist [facility] Toxoplasma Gondii IgG <3.0 0.0 - 7.1 IU/mL 10/27/2024 7:55 AM EDT [facility] Comment: Negative <7.2 Equivocal 7.2 - 8.7 Positive >8.7 Serum 10/25/2024 8:18 PM EDT 10/27/2024 8:06 AM EDT [facility] - 10/27/2024 8:06 AM EDT PERFORMED AT: [facility] [address] [id number] [employer]IDER ASSEMBLER: Bassam Khalil, PhD PHONE: [phone] Leandra Og MD LAB BLOOD ORDERABLES F inal Result [facility] [address] [facility]. [address] * Antibody Screen (10/25/2024 7:46 PM EDT) Pathologist [facility] Antibody Screen Negative 10/25/2024 10:41 PM EDT [facility] Blood 10/25/2024 7:46 PM EDT 10/25/2024 9:54 PM EDT [facility] - 10/25/2024 10:44 PM EDT Testing performed by [facility] Ben Blake MD BLOOD BANK TEST ORDERABLES Fi nal Result [facility] [address] [place], [place]. [address] * ABO/Rh (10/25/2024 7:46 PM EDT) ABO Grouping O 10/25/2024 10:23 PM EDT [facility] Rh Type Positive 10/25/2024 10:23 PM EDT [facility] 10/25/2024 7:46 PM EDT 10/25/2024 9:54 PM EDT us Ben Blake MD BLOOD BANK TEST ORDERABLES Fi nal Result [facility] [address] * (ABNORMAL) TEG-Standard Global Hemostasis (Rapid TEG with Heparin Effect, Contains a Baseline TEG) (10/25/2024 7:46 PM EDT) Citrated Kaolin Reaction Time (TEGHEPARINASE) 8.4 4.6 - 9.1 minutes 10/25/2024 10:49 PM EDT [facility] Citrated Rapid Teg Maximum Amplitude (TEGHEPARINASE) <40.0(L) 52.0 - 70.0 mm 10/25/2024 10:49 PM EDT [facility] Citrated Functional Fibrinogen Maximum Amplitude (TEGHEPARINASE) 6.7(L) 15.0 - 32.0 mm 10/25/2024 10:49 PM EDT [facility] Citrated Kaolin W/Heparinase Reaction Time (TEGHEPARINASE) 8.1 4.3 - 8.3 minutes 10/25/2024 10:49 PM EDT [facility] Citrated Kaolin K-Time (TEGHEPARINASE) 2.5(A) 0.8 - 2.1 minutes 10/25/2024 10:49 PM EDT [facility] Citrated Kaolin Angle (TEGHEPARINASE) 65.7(A) 63.0 - 78.0 degrees 10/25/2024 10:49 PM EDT [facility] Citrated Kaolin Maximum Amplitude (TEGHEPARINASE) <40.0(L) 52.0 - 69.0 mm 10/25/2024 10:49 PM EDT [facility] Citrated Functional Fibrinogen- Fibrinogen Level (TEGHEPARINASE) 159.5(L) 278.0 - 581.0 mg/dL 10/25/2024 10:49 PM EDT [facility] Whole Blood (Citrate) 10/25/2024 7:46 PM EDT 10/25/2024 10:15 PM EDT us Ben Blake MD LAB BLOOD ORDERABLES Final Re sult [facility] [address] [place] [address], [facility] documented in this encounter Visit Diagnoses Diagnosis Acute kidney injury superimposed on CKD ([facility])- Primary Prophylactic antibiotic Encounter for long-term (current) use of antibiotics Prolonged QT interval Nonspecific abnormal electrocardiogram (ECG) (EKG) Immunosuppression ([facility]) Abdominal pain, unspecified abdominal location Acute kidney injury superimposed on CKD ([facility]) documented in this encounter Administered Medications Inactive [...] RN)2120 (Given - Provider: Yvonne Gale, ЮЛИЯ) 1142 (Given - Provider: Paulette Flannery, ЮЛИЯ) sod phos di, mono-K phos mono [...] oral. 0149 (Given - Provider: Vandana Vilchis ЮЛИЯ)0616 (Given - Provider: Vandana Vilchis RN) [...] Last Indicated Resolved Time C. difficile 09/09/2024 09/09/202410/2710/27/2024 8:30 AM EDT 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, VRE- urine 10/31/2024 11/04/2024 Assessment Noted Time PHQ-9 Depression Total Score: 17 025 11:00 AM EDT documented as of this encounter Care Teams Body Die Maker Relationship Specialty Start Date End Date Enedina Mcguire NP [address] [place] [address] PCP - General Internal Medicine 10/05/24 documented as of this encounter
--- OUTSIDE RECORDS SUMMARY | 2024-10-27 02:34 | XMS_ITS | Encounter Summary ---
Author Organization [facility] Address [facility] [place] [address] Care Team Providers Care Feeder Tender Name Role Phone Enedina Mcguire NP Primary Care Provider [phone] Source Comments This information has been disclosed [...] release of HIV test results or diagnoses. [id number] Reason for Visit * Auth/Cert (Routine) Specialty Diagnoses / Procedures Referred By Shane t Referred To Contact Surgical Intensive Care Diagnoses Liver transplant recipient (CMS-HCC) cirrhosis and CKD Procedures LIVER-KIDNEY TRANSPLANT [facility] SICU [address] [place] [address] Phone: tel: Referral ID Status Reason Start Date Expiration Date Visits Re quested Visits Authorized [id number] 1 1 Encounter Details Date Type Department Care Team (Late st Contact Info) Description 10/27/2024 2:34 AM EDT Anesthesia Event [facility] PERIOP [address] [place] [address] Rocky Manning MD [address] [place] [phone] Con Gramajo MD [address] [place] [address] Anesthesia Record Procedure Summary Procedure Name Responsible [...] sodium chloride 0.9% 1 00 mL IVPB (Ulpe9Vfi) 1 g cefTRIAXone (ROCEPHIN) 2 g in sodium chl oride 0.9 % 100 mL Mjei0Umq 2 g electrolyte-r (pH 7.4)(NORMOSOL-R pH 7.4 [...] Sounds Confirmed 10/26/24 0622 by Martha Phillip, BANDAGE WRAPPING MACHINE OPERATOR 10/27/24 1310 by Chinedu Almeida, BANDAGE WRAPPING MACHINE OPERATOR Drain 10/27/24; 0636; Bulb ; Abdomen; Inferior, [...] the past 12 months has th e [email or web address], gas, oil, or water [employer] threatened to shut off services in [...] living in a long-term (including now)? No 10/29/2024 Yearly Questionnaire Answer [...] Blake MD - 10/26/2024 8:01 PM EDT [facility] DEPARTMENT OF ANESTHESIOLOGY PRE-PROCEDURAL EVALUATION Julien Anderson is a 39 y.o. year old male presenting for: Procedure(s): TRANSPLANT KIDNEY with bile duct reconstruction Surgeon: Harvey Domínguez III, MD Chief Complaint cirrhosis and CKD; Liver transplant recipient ([facility]-H[facility]) EtOH cirrhosis decompensated by esophageal varices, hepatic [...] dysrhythmias, angina, orthopnea. ECG reviewed. ROS comment: [facility] 10/14/24: IMPRESSIONS: - Patent coronary [...] is no recent study available for direct dafp-iy-adve comparison. Stress echo 10/09/24: - Left ventricle: [...] at baseline or with provocation, shows no xtbbo-kz-cwrn atrial level shunt. - Pulmonary arteries: Systolic [...] Strain: Low Risk (07/09/2024) Received from [facility] Overall Financial Resource Strain (CARDIA) [...] No Physical Activity: Unknown (07/14/2024) Received from [facility] Exercise Vital Sign Days of Exercise per Week: Patient unable to answer Minutes of Exercise per Session: Not on file Stress: Patient Unable To Answer (07/14/2024) Received from [facility] [place] of Occupational Health - Occupational Stress Questionnaire Feeling of Stress : Patient unable to answer Social Connections: Patient Unable To Answer (07/14/2024) Received from [facility] Social Connection and Isolation Panel [...] at 9:00 PM naloxone (NARCAN) 4 mg/actuation [place] Apply 1 spray in one nostril if [...] Blood products not discussed. Plan discussed with INTERNATIONAL RELATIONS PROFESSOR and attending. no trial extubation [1] Allergies [...] Date 10/26/24699 - 10/27/2465810/27/24699 - 10/28/2459 Shift 8499-7354 9567-5766 1591-6722 24 Hour Total 1528-0131 4313-0298 9201-0082 24 Hour Total INTAKE I.V.(mL/kg) 1450.8(11.8) 999.1(8.2) [...] 1 x 1 x 3 x Albumin 0993 057 8610 Volume (Transfuse Cryoprecipitate Transfusion Rate: Per dept [...] in sodium chloride 0.9 % 100 mL Pang1Hfo) 20 20 Volume (mL) (methylPREDNISolone sodium succinate (SOLU-medrol) 250 mg in sodium chloride 0.9 % 100 mL IVPB) 100 100 Volume (mL) (AMPicillin 1 g in sodium chloride 0.9% 100 mL IVPB (Zyrg9Crk)) 200.2 100 120 420.1 Volume (mL) (mycophenolate [...] 99.3 99.3 Shift Total(mL/kg) 3124.1(25.5) 4253.7(34.7) 6907(56.4) 51047.8(116.6) OUTPUT Urine(mL/kg/hr) 955(1) 505(0.5) 690(0.7) 2150(0.7) 360 360 Urine 315 315 360 360 Output (mL) (IUC (Berkowitz) Triple-lumen (3-Way) 18 Fr.) 955 528 865 9156 Emesis/NG output 250 600 850 Drainage Output (mL) (NG/OG Tube Orogastric) 250 600 850 Drains 1700 3290 982 0258 Output (mL) (Drain Bilary Abdomen Inferior;Right) 100 150 250 Output (mL) ([REMOVED] Drain 1 Abdomen Right;Superior) 800 314 025 3539 Output (mL) (Drain 2 Left;Superior) 800 168 28 7603 Blood 300 300 Est Blood Loss 300 [...] in sodium chloride 0.9% 100 mL IVPB (Veol3Dud) 1 g, Intravenous, at 200 mL/hr, Every 6 hours scheduled (4 times per day), First dose on Sun10/26/24 at 0630, For 2 days, Dosage may need to be adjusted for renal dysfunction. Full dose is 1g IV q6h Use Pikq1Jlc Adapter - Mix Thoroughly Before Administration New [...] Once underlying shock sufficiently improved, defined as teo-zdyxozlspgq-AJ-presso r requirement ? 0.2 mcg/kg/min (norepinephrine equivalent) [...] in sodium chloride 0.9 % 100 mL Ovvb2Ppj Intravenous, Administer over 30 Minutes, Continuous - [...] paralyzed: Do not titrate - follow policy [id number]. Start infusion if unable to maintain goal [...] documented as of this encounter Care Teams Feeder Tender Relationship Specialty Start Date End Date Enedina Mcguire NP [address] [place] [address] PCP - General Internal Medicine 10/05/24 documented as of this encounter
--- OUTSIDE RECORDS SUMMARY | 2024-11-04 08:40 | XMS_ITS | Encounter Summary ---
Author Organization [facility] Address [address] [place] [address] Care Team Providers Care Health Science Specialist Name Role Phone Enedina Mcguire NP Primary Care Provider + [phone] Maureen Pantoja RN Unavailable Unavail able Source [...] release of HIV test results or diagnoses. [id number] Reason for Visit * Reason Comments Liver Transplant Follow-up Encounter Details Date Type Department Care Team (Late st Contact Info) Description 11/04/2024 8:40 AM EDT Office Visit [facility] Liver Transplant at [place] [phone] [facility] [address] [place] [address] Cosmo Pacheco MD [address] [place] [address] 3[address] [place] [address] Liver transplant recipient (CMS-HCC) (Primary [...] the past 12 months has th e [employer], [employer], oil, or water company threatened to shut [...] in the past 12 m [facility], were you homeless or living [...] Nutrition: patient continues close f/u w/ transplant pediatric oncology nurse. - Bone health: Vit D level to be drawn ~POD#90. - Labs: Labs (CBC w/ diff, renal panel, liver panel, tacro level) twice a week. Lipid panel, [id number] Vit D level to be drawn at [...] management for this patient. Cosmo Pacheco MD Curing Room Worker of Transplant Surgery [phone] (m) [1] Allergies Allergen Reactions Adhesive Itching [...] transplant recipient ([facility])- Primary Alcoholic cirrhosis of liver with ascites ([facility]) Kidney transplant recipient Acute kidney injury superimposed on CKD ([facility]) CKD (chronic kidney disease) stage 4, GFR 15-29 ml/min ([facility]) Chronic kidney disease, Stage IV (severe) Immunosuppressive management encounter following liver transplant ([facility]) Abdominal pain, unspecified abdominal location documented in this encounter Additional Health Concerns Infection Onset Date Last Indicated Resolved Time 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
--- OUTSIDE RECORDS SUMMARY | 2024-11-04 10:10 | XMS_ITS | Encounter Summary ---
Author Organization [facility] Address [facility] [place] [address] Care Team Providers Care Battery Assembler Plastic Name Role Phone Enedina Mcguire NP Primary Care Provider + [phone] Maureen Pantoja RN Unavailable Unavail able Source [...] release of HIV test results or diagnoses. [id number] Reason for Visit * Reason Comments Kidney Transplant Follow-up Encounter Details Date Type Department Care Team (Late st Contact Info) Description 11/04/2024 10:10 AM EDT Office Visit [facility] Liver Transplant at [facility] [address] [facility] [address] [place] [address] Leisa Juarez MD [facility] 2nd Floor [place] [address] Kidney transplant recipient (Primary Dx); [...] the past 12 months has th e [employer], [employer], oil, or water [employer] threatened to shut off services in your [...] packing; Surgeon: Harvey Domínguez III, MD; Location: [facility]; Service: Transplant; Laterality: N/A; Family History: No [...] Low Risk (07/09/2024) Received from [facility] Overall Financial Resource Strain (CARDIA) Difficulty [...] No Physical Activity: Unknown (07/14/2024) Received from [facility] Exercise Vital Sign Days of Exercise per Week: Patient unable to answer Minutes of Exercise per Session: Not on file Stress: Patient Unable To Answer (07/14/2024) Received from [facility] [place] of Occupational Health - Occupational Stress Questionnaire Feeling of Stress : Patient unable to answer Social Connections: Patient Unable To Answer (07/14/2024) Received from [facility] Social Connection and Isolation Panel [NHANES] Frequency of Communication with Friends and Family: Patient unable to answer Frequency of Social Gatherings with Friends and Family: Patient unable to answer Attends Syn[employer] Services: Patient unable to answer Active Member [...] 12 units lancets (ACCU-CHEK SOFTCLIX LANCETS) [facility] Use to [...] times a day. naloxone (NARCAN) 4 mg/actuation [place] Apply 1 spray in one nostril if [...] Results Component Value Date PTH 36.0 10/25/2024 [id number] 7.1 (L) 10/08/2024 Hemoglobin A1C: Lab Results [...] - 2.5 mg/dL 11/25/2024 10:20 AM EDT [facility] Plasma 11/25/2024 8:42 AM EDT 11/25/2024 9:47 AM EDT Yareli Zaragoza [facility] BLOOD ORDERABLES Denisse l Result Performing Organization Address City/[facility]/ZIP Co de Phone Number [facility] [address] * (ABNORMAL) Magnesium (11/11/2024 9:13 AM EDT) Magnesium 1.2(L) 1.5 - 2.5 mg/dL 11/11/2024 10:51 AM EDT [facility] Plasma 11/11/2024 9:13 AM EDT 11/11/2024 10:19 AM EDT Yareli Zaragoza [facility] BLOOD ORDERABLES Denisse l Result [facility] [address] * (ABNORMAL) Post Kidney Transplant Urine Culture (11/11/2024 9:13 AM EDT) Culture Result Enterococcus faecium(A) [facility] Comment: <1,000 cfu/mL Identified by MALDI-TOF MS No Further Workup Midstream Urine URINE SPECIMEN / Unknown 11/11/2024 9:13 AM EDT 11/11/2024 10:17 AM EDT Yareli Zaragoza CNP MICROBIOLOGY - GENERAL OR DERABLES Final Result Performing Organization Address [facility] Co de Phone Number [facility] [address] [facility]. [address] * Protein / creatinine ratio, urine (11/11/2024 9:13 AM EDT) Creatinine, Urine 71.40 mg/dL 11/11/2024 10:38 AM EDT [facility] Comment:Reference range not established for this test. Total Protein, Ur 28 mg/dL 11/11/2024 10:38 AM EDT [facility] Comment:Reference range not established for this test. Prot/Creat Ratio, Ur 0.39 ratio 11/11/2024 10:38 AM EDT [facility] Urine 11/11/2024 9:13 AM EDT 11/11/2024 10:12 AM EDT us Yareli Zaragoza CNP URINE ORDERABLES Final Re sult Performing Organization Address [facility]/ZIP Co de Phone Number [facility] [address] [facility]. [address] * (ABNORMAL) Urinalysis w/Rfl to Microscopic (11/11/2024 9:13 AM EDT) Color, UA Straw Yellow,Straw 11/11/2024 10:36 AM EDT [facility] Clarity, UA Clear Clear 11/11/2024 10:36 AM EDT [facility] Specific [place], UA 1.015 1.005 - 1.035 11/11/2024 10:36 AM EDT [facility] pH, UA 6.0 5.0 - 8.0 11/11/2024 10:36 AM EDT [facility] Protein, UA Negative Negative mg/dL 11/11/2024 10:36 AM EDT [facility] Glucose, UA Negative Negative mg/dL 11/11/2024 10:36 AM EDT [facility] Ketones, UA Negative Negative mg/dL 11/11/2024 10:36 AM EDT [facility] Bilirubin, UA Negative Negative 11/11/2024 10:36 AM EDT [facility] Blood, UA Small(A) Negative 11/11/2024 10:36 AM EDT [facility] Nitrite, UA Negative Negative 11/11/2024 10:36 AM EDT [facility] Urobilinogen, UA <2.0 0.2 - 1.9 mg/dL 11/11/2024 10:36 AM EDT [facility] Leukocyte Esterase, UA Negative Negative 11/11/2024 10:36 AM EDT [facility] RBC, UA 13(H) 0 - 3 /HPF 11/11/2024 10:36 AM EDT [facility] WBC, UA 4 0 - 5 /HPF 11/11/2024 10:36 AM EDT [facility] Urine 11/11/2024 9:13 AM EDT 11/11/2024 10:10 AM EDT Yareli Zaragoza INTERNATIONAL FIRST OFFICER URINE ORDERABLES Final Re sult Performing Organization Address [facility]/ZIP Co de Phone Number [facility] [address] * (ABNORMAL) Magnesium (11/04/2024 8:46 AM EDT) Magnesium 1.0(L) 1.5 - 2.5 mg/dL 11/04/2024 10:06 AM EDT [facility] Plasma 11/04/2024 8:46 AM EDT 11/04/2024 9:32 AM EDT Yareli Zaragoza [facility] BLOOD ORDERABLES Denisse l Result Performing Organization Address [facility]/ZIP Co de Phone Number [facility] [address] * (ABNORMAL) Post Kidney Transplant Urine Culture (11/04/2024 8:46 AM EDT) Culture Result Enterococcus faecium, Vancomycin Resistant(A) [facility] Comment: 1,000- <10,000 cfu/mL [...] OR DERABLES Final Result Performing Organization Address [facility] Co de Phone Number [facility] [address] [facility]. [address] * Protein / creatinine ratio, urine (11/04/2024 8:46 AM EDT) Creatinine, Urine 37.30 mg/dL 11/04/2024 2:55 PM EDT [facility] Comment:Reference range not established for this test. Total Protein, Ur 42 mg/dL 11/04/2024 2:55 PM EDT [facility] Comment:Reference range not established for this test. Prot/Creat Ratio, Ur 1.13 ratio 11/04/2024 2:55 PM EDT [facility] Urine 11/04/2024 8:46 AM EDT 11/04/2024 9:32 AM EDT Yareli Zaragoza CNP URINE ORDERABLES Final Re sult Performing Organization Address [facility]/ZIP Co de Phone Number [facility] [address] [facility]. [address] * (ABNORMAL) Urinalysis w/Rfl to Microscopic (11/04/2024 8:46 AM EDT) Color, UA Straw Yellow,Straw 11/04/2024 10:07 AM EDT [facility] Clarity, UA Clear Clear 11/04/2024 10:07 AM EDT [facility] Specific [place], UA 1.012 1.005 - 1.035 11/04/2024 10:07 AM EDT [facility] pH, UA 6.5 5.0 - 8.0 11/04/2024 10:07 AM EDT [facility] Protein, UA Trace(A) Negative mg/dL 11/04/2024 10:07 AM EDT [facility] Glucose, UA Negative Negative mg/dL 11/04/2024 10:07 AM EDT [facility] Ketones, UA Negative Negative mg/dL 11/04/2024 10:07 AM EDT [facility] Bilirubin, UA Negative Negative 11/04/2024 10:07 AM EDT [facility] Blood, UA Large(A) Negative 11/04/2024 10:07 AM EDT [facility] Nitrite, UA Negative Negative 11/04/2024 10:07 AM EDT [facility] Urobilinogen, UA <2.0 0.2 - 1.9 mg/dL 11/04/2024 10:07 AM EDT [facility] Leukocyte Esterase, UA Negative Negative 11/04/2024 10:07 AM EDT [facility] RBC, UA >100(H) 0 - 3 /HPF 11/04/2024 10:07 AM EDT [facility] WBC, UA 2 0 - 5 /HPF 11/04/2024 10:07 AM EDT [facility] Bacteria, UA Rare(A) None Seen /HPF 11/04/2024 10:07 AM EDT [facility] Hyaline Casts, UA 3(H) 0 - 2 /LPF 11/04/2024 10:07 AM T [facility] Urine 11/04/2024 8:46 AM EDT 11/04/2024 9:33 AM EDT Yareli Zaragoza INTERNATIONAL FIRST OFFICER URINE ORDERABLES Final Re sult [facility] [address] [place] [address], [facility] [...] documented as of this encounter Care Teams Battery Assembler Plastic Relationship Specialty Start Date End Date Enedina Mcguire NP [address] [place] [address] PCP - General Internal Medicine 10/05/24 Maureen Pantoja, ЮЛИЯ Txp Post Coordinator Transplant Hepatology 10/28/24 documented as of this encounter
--- OUTSIDE RECORDS SUMMARY | 2024-11-11 08:50 | XMS_ITS | Encounter Summary ---
Author Organization [facility] Address [facility] [place] [address] Care Team Providers Care [employer] Manager Name Role Phone Enedina Mcguire NP Primary Care Provider + [phone] Maureen Pantoja RN Unavailable Unavail able Source [...] release of HIV test results or diagnoses. [id number] Reason for Visit * Reason Comments Labs Only Encounter Details Date Type Department Care Team (Late st Contact Info) Description 11/11/2024 8:50 AM EDT Specimen [facility] Outreach Lab [address] [place] [address] Harvey Domínguez III, MD [facility] [address] [place] [address] Liver replaced by transplant ([facility]); Immunosuppressive management encounter following liver transplant ([facility]); Kidney transplant recipient Social History Tobacco Use [...] the past 12 months has th e [employer], oil, or water company threatened to shut [...] - 2.5 mg/dL 11/11/2024 10:51 AM EDT [facility] Plasma 11/11/2024 9:13 AM EDT 11/11/2024 10:19 AM EDT Caron Santos CNP LAB BLOOD ORDERABLES Denisse l Result Performing Organization Address [facility] Co de Phone Number [facility] [address] [place] [address]. [address] * (ABNORMAL) Post Kidney Transplant Urine Culture (11/11/2024 9:13 AM EDT) Culture Result Enterococcus faecium(A) [facility] Comment: <1,000 cfu/mL Identified by MALDI-TOF MS No Further Workup Midstream Urine URINE SPECIMEN / Unknown 11/11/2024 9:13 AM EDT 11/11/2024 10:17 AM EDT Caron Santos [employer] MICROBIOLOGY - GENERAL OR DERABLES Final Result Performing Organization Address [facility] de Phone Number [facility] [address] [place] [address]. [address] * Protein / creatinine ratio, urine (11/11/2024 9:13 AM EDT) Creatinine, Urine 71.40 mg/dL 11/11/2024 10:38 AM EDT [facility] Comment:Reference range not established for this test. Total Protein, Ur 28 mg/dL 11/11/2024 10:38 AM EDT [facility] Comment:Reference range not established for this test. Prot/Creat Ratio, Ur 0.39 ratio 11/11/2024 10:38 AM EDT [facility] Urine 11/11/2024 9:13 AM EDT 11/11/2024 10:12 AM EDT Caron Santos CNP URINE ORDERABLES Final Re sult Performing Organization Address City/[facility]/ZIP Co de Phone Number [facility] [address] * (ABNORMAL) Urinalysis w/Rfl to Microscopic (11/11/2024 9:13 AM EDT) Color, UA Straw Yellow,Straw 11/11/2024 10:36 AM EDT [facility] Clarity, UA Clear Clear 11/11/2024 10:36 AM EDT [facility] Specific [place], UA 1.015 1.005 - 1.035 11/11/2024 10:36 AM EDT [facility] pH, UA 6.0 5.0 - 8.0 11/11/2024 10:36 AM EDT [facility] Protein, UA Negative Negative mg/dL 11/11/2024 10:36 AM EDT [facility] Glucose, UA Negative Negative mg/dL 11/11/2024 10:36 AM EDT [facility] Ketones, UA Negative Negative mg/dL 11/11/2024 10:36 AM EDT [facility] Bilirubin, UA Negative Negative 11/11/2024 10:36 AM EDT [facility] Blood, UA Small(A) Negative 11/11/2024 10:36 AM EDT [facility] Nitrite, UA Negative Negative 11/11/2024 10:36 AM EDT [facility] Urobilinogen, UA <2.0 0.2 - 1.9 mg/dL 11/11/2024 10:36 AM EDT [facility] Leukocyte Esterase, UA Negative Negative 11/11/2024 10:36 AM EDT [facility] RBC, UA 13(H) 0 - 3 /HPF 11/11/2024 10:36 AM EDT [facility] WBC, UA 4 0 - 5 /HPF 11/11/2024 10:36 AM EDT [facility] Urine 11/11/2024 9:13 AM EDT 11/11/2024 10:10 AM EDT us Caron Santos YE[employer] P[employer]HER URINE ORDERABLES Final Re sult [facility] [address] * (ABNORMAL) Differential (11/11/2024 9:13 AM EDT) Neutrophils Relative 69.3 40.0 - 80.0 % 11/11/2024 10:31 AM EDT [facility] Lymphocytes Relative 17.6 15.0 - 45.0 % 11/11/2024 10:31 AM EDT [facility] Monocytes Relative 8.5 0.0 - 12.0 % 11/11/2024 10:31 AM EDT [facility] Eosinophils Relative 2.0 0.0 - 8.0 % 11/11/2024 10:31 AM EDT [facility] Basophils Relative 2.6(H) 0.0 - 1.0 % 11/11/2024 10:31 AM EDT [facility] nRBC 0 0 - 0 /100 WBC 11/11/2024 10:31 AM EDT [facility] Neutrophils Absolute 4,920 1,520 - 8,640 /uL 11/11/2024 10:31 AM EDT [facility] Lymphocytes Absolute 1,250 570 - 4,860 /uL 11/11/2024 10:31 AM EDT [facility] Monocytes Absolute 604 0 - 1,296 /uL 11/11/2024 10:31 AM EDT [facility] Eosinophils Absolute 142 0 - 864 /uL 11/11/2024 10:31 AM EDT [facility] Basophils Absolute 185(H) 0 - 108 /uL 11/11/2024 10:31 AM EDT [facility] Whole Blood 11/11/2024 9:13 AM EDT 11/11/2024 10:19 AM EDT Narrative [facility] - 11/11/2024 10:31 AM EDT Standing orders to be drawn: Every Sunday and before 9am and prior to patient taking morning medications. Liver Transplant Fax results to [phone] Call Critical results to [phone] us Harvey Domínguez III, MD LAB BLOOD ORDERABLE S Final Result [facility] [address] [place] [facility], [facility] * (ABNORMAL) CBC (11/11/2024 9:13 AM EDT) WBC 7.1 3.8 - 10.8 10E3/uL 11/11/2024 10:31 AM EDT [facility] RBC 3.42(L) 4.20 - 5.80 10E6/uL 11/11/2024 10:31 AM EDT [facility] Hemoglobin 10.6(L) 13.2 - 17.1 g/dL 11/11/2024 10:31 AM EDT [facility] Hematocrit 31.3(L) 38.5 - 50.0 % 11/11/2024 10:31 AM EDT [facility] MCV 91.5 80.0 - 100.0 fL 11/11/2024 10:31 AM EDT [facility] MCH 31.0 27.0 - 33.0 pg 11/11/2024 10:31 AM EDT [facility] MCHC 33.8 32.0 - 36.0 g/dL 11/11/2024 10:31 AM EDT [facility] RDW 20.5(H) 11.0 - 15.0 % 11/11/2024 10:31 AM EDT [facility] Platelets 308 140 - 400 10E3/uL 11/11/2024 10:31 AM EDT [facility] MPV 6.1(L) 7.5 - 11.5 fL 11/11/2024 10:31 AM EDT [facility] Whole Blood 11/11/2024 9:13 AM EDT 11/11/2024 10:19 AM EDT Narrative [facility] - 11/11/2024 10:31 AM EDT Standing orders to be drawn: Every Sunday and before 9am and prior to patient taking morning medications. Liver Transplant Fax results to [phone] Call Critical results to [phone] us Harvey Domínguez III, MD LAB BLOOD ORDERABLE S Final Result [facility] [address] [place] [id number], [facility] * (ABNORMAL) Renal Function Panel w/EGFR (11/11/2024 9:13 AM EDT) Sodium 141 133 - 146 mmol/L 11/11/2024 10:51 AM EDT [facility] Potassium 4.6 3.5 - 5.3 mmol/L 11/11/2024 10:51 AM EDT [facility] Chloride 108 98 - 110 mmol/L 11/11/2024 10:51 AM EDT [facility] CO2 24 21 - 33 mmol/L 11/11/2024 10:51 AM EDT [facility] Anion Gap 9 3 - 16 mmol/L 11/11/2024 10:51 AM EDT [facility] BUN 27(H) 7 - 25 mg/dL 11/11/2024 10:51 AM EDT [facility] Creatinine 1.14 0.60 - 1.30 mg/dL 11/11/2024 10:51 AM EDT [facility] Glucose 97 70 - 100 mg/dL 11/11/2024 10:51 AM EDT [facility] Calcium 8.6 8.6 - 10.3 mg/dL 11/11/2024 10:51 AM EDT [facility] Phosphorus 4.4 2.1 - 4.7 mg/dL 11/11/2024 10:51 AM EDT [facility] Albumin 3.8 3.5 - 5.7 g/dL 11/11/2024 10:51 AM EDT [facility] Osmolality, Calculated 297 278 - 305 mOsm/kg 11/11/2024 10:51 AM EDT [facility] EGFR 83 11/11/2024 10:51 AM EDT [facility] Comment:As of [...] morning medications. Liver Transplant Fax results to [phone] Call Critical results to [phone] DO NOT REPLACE RENAL PANEL or HEPATIC FUNCTION PANEL w/ CMP, BMP or HEPATIC PROFILE us Harvey Domínguez III, MD LAB BLOOD ORDERABLE S Final Result [facility] [address] [place] [address], [facility] * (ABNORMAL) Hepatic Function Panel (11/11/2024 9:13 AM EDT) Total Bilirubin 1.0 0.0 - 1.5 mg/dL 11/11/2024 10:51 AM EDT [facility] Bilirubin, Direct 0.39 0.00 - 0.40 mg/dL 11/11/2024 10:51 AM EDT [facility] AST 15 13 - 39 U/L 11/11/2024 10:51 AM EDT [facility] ALT 26 7 - 52 U/L 11/11/2024 10:51 AM EDT [facility] Alkaline Phosphatase 125 36 - 125 U/L 11/11/2024 10:51 AM EDT [facility] Total Protein 5.9(L) 6.4 - 8.9 g/dL 11/11/2024 10:51 AM EDT [facility] Albumin 3.8 3.5 - 5.7 g/dL 11/11/2024 10:51 AM EDT [facility] Bilirubin, Indirect 0.61 0.00 - 1.10 mg/dL 11/11/2024 10:51 AM EDT [facility] Plasma 11/11/2024 9:13 AM EDT 11/11/2024 10:19 AM EDT Narrative [facility] - 11/11/2024 10:51 AM EDT Standing orders to be drawn: Every Sunday and before 9am and prior to patient taking morning medications. Liver Transplant Fax results to [phone] Call Critical results to [phone] DO NOT REPLACE RENAL PANEL or HEPATIC FUNCTION PANEL w/ CMP, BMP or HEPATIC PROFILE Harvey Domínguez III, MD LAB BLOOD ORDERABLE S Final Result Performing Organization Address City/[facility] Co de Phone Number [facility] [address] [facility]. [address] * Tacrolimus level (11/11/2024 9:13 AM EDT) [facility] Tacrolimus (LC-MS) 10.4 3.0 - 15.0 ng/mL 11/11/2024 1:22 PM EDT [facility] Comment:Performed via liquid chromatography tandem mass spectrometry. Detection limit: 1 ng/mL. Individual target concentrations may vary due to target organ and time after transplant. This test has been developed and its performance characteristics determined by [facility] which is certified under the Clinical [...] AM EDT 11/11/2024 10:19 AM EDT Narrative [facility] - 11/11/2024 1:22 PM EDT Standing orders to be drawn: Every Sunday and before 9am and prior to patient taking morning medications. Liver Transplant Fax results to [phone] Call Critical results to [phone] Harvey Domínguez III, MD LAB BLOOD ORDERABLE S Final Result Performing Organization Address City/[facility]/ZIP Co de Phone Number [facility] [address] documented in this encounter Visit Diagnoses [...] documented as of this encounter Care Teams [employer] Manager Relationship Specialty Start Date End Date Enedina Mcguire NP [address] [place] [address] PCP - General Internal Medicine 10/05/24 Maureen Pantoja, RN Txp Post Coordinator Transplant Hepatology 10/28/24 documented as of this encounter
--- OUTSIDE RECORDS SUMMARY | 2024-11-11 09:30 | XMS_ITS | Encounter Summary ---
Author Organization [facility] Address [address] [place] [address] Care Team Providers Care Shipping And Receiving Weigher Name Role Phone Enedina Mcguire NP Primary Care Provider + [phone] Maureen Pantoja RN Unavailable Unavail able Source [...] release of HIV test results or diagnoses. [id number] Health Encounter Details Date Type Department Care Team (Late st Contact Info) Description 11/11/2024 9:30 AM EDT Office Visit [facility] Psychiatry Transplant at [facility] [address] [facility] [address] [place] [address] Craig Warren PsyD [address] [facility] [address] [place] [address] PTSD (post-traumatic stress disorder) (Primary [...] In the past 12 months has th [employer], [employer], or [employer] threatened to shut off services in your [...] 9:30 AM EDT Transplant Psychology Outpatient Visit Juline Anderson is a 39 y.o. 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 Seen by this signwriter for pre-surgical evaluation. PMH includes PTSD and [...] documented as of this encounter Care Teams Shipping And Receiving Weigher Relationship Specialty Start Date End Date Endeina Mcguire NP [address] [place] [address] PCP - General Internal Medicine 10/05/24 Maureen Pantoja, RN Txp Post Coordinator Transplant Hepatology 10/28/24 documented as of this encounter
--- OUTSIDE RECORDS SUMMARY | 2024-11-11 10:00 | XMS_ITS | Encounter Summary ---
Author Organization [facility] Address [address] [place] [address] Care Team Providers Care Field Test Engineer Name Role Phone Enedina Mcguire NP Primary Care Provider + [phone] Maureen Pantoja RN Unavailable Unavail able Source [...] release of HIV test results or diagnoses. [id number] Reason for Visit * Reason Comments Liver Transplant Follow-up Encounter Details Date Type Department Care Team (Late st Contact Info) Description 11/11/2024 10:00 AM EDT Office Visit [facility] Liver Transplant at [place] [address] [place] [address] Cosmo Pacheco MD [address] [place], [place] [address] [place] [address] Harvey Domínguez III, MD [address] [place] [address] [address] [place] [address] Encounter for therapeutic drug monitoring [...] the past 12 months has th e [email or web address], [employer], oil, or water company threatened to shut [...] = 12 units lancets (ACCU-CHEK SOFTCLIX LANCETS) [facility] [...] times a day. naloxone (NARCAN) 4 mg/actuation [place] Apply 1 spray in one nostril if [...] Nutrition: patient continues close f/u w/ transplant certified juvenile probation officer. - Bone health: Vit D level to be drawn ~POD#90. - Labs: Labs (CBC w/ diff, renal panel, liver panel, tacro level) twice a week. Lipid panel, [id number] Vit D level to be drawn at POD#90, HgbA1C and Vit D level to be drawn at POD#180. - Follow up: RTC 2 weeks Kemar Sahni MD, Fellow, Multiorgan Abdominal Transplant Surgery. [facility]. 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
--- OUTSIDE RECORDS SUMMARY | 2024-11-11 10:30 | XMS_ITS | Encounter Summary ---
Author Organization [facility] Address [address] [place] [address] Care Team Providers Care Sock Ironer Name Role Phone Enedina Mcguire NP Primary Care Provider [phone] Maureen Pantoja RN Unavailable Unavail able Source [...] release of HIV test results or diagnoses. [id number] Reason for Visit * Reason Comments Kidney Transplant Follow-up Encounter Details Date Type Department Care Team (Late st Contact Info) Description 11/11/2024 10:30 AM EDT Office Visit [facility] Liver Transplant at [facility] [address] [facility] [address] [place] [address] Unknown, Attending Provider Seble Colon [address] [facility], [facility] [address] [place] [address] Kidney replaced by transplant (Primary [...] Answer (07/14/2024) Received from [facility] Cymraes [place] of Occupational Health - Occupational Stress Questionnaire Feeling of Stress : Patient unable to answer Social Connections: Patient Unable To Answer (07/14/2024) Received from [facility] Social Connection and Isolation Panel [NHANES] Frequency of Communication with Friends and Family: Patient unable to answer Frequency of Social Gatherings with Friends and Family: Patient unable to answer Attends Yazidi Services: Patient unable to answer Active Member [...] Lastdose 11/26/24 blood sugar diagnostic (GLUCOSE BLOOD) [facility] Use to test blood sugar up to 4 times a day. blood-glucose meter (TRUE METRIX GLUCOSE METER) [facility] Use to test blood sugar [...] = 12 units lancets (ACCU-CHEK SOFTCLIX LANCETS) [facility] Use to test blood sugar [...] times a day. naloxone (NARCAN) 4 mg/actuation [place] Apply 1 spray in one nostril if [...] Results Component Value Date PTH 36.0 10/25/2024 [id number] 7.1 (L) 10/08/2024 Hemoglobin A1C: Lab Results [...] documented as of this encounter Care Teams Sock Ironer Relationship Specialty Start Date End Date Enedina Mcguire NP [address] [place] [address] PCP - General Internal Medicine 10/05/24 Maureen Pantoja, RN Txp Post Coordinator Transplant Hepatology 10/28/24 documented as of this encounter
--- OUTSIDE RECORDS SUMMARY | 2024-11-25 09:00 | XMS_ITS | Encounter Summary ---
Author Organization [facility] Address [address] [place] [address] Care Team Providers Care Forensic Chemist Name Role Phone Enedina Mcguire NP Primary Care Provider + [phone] Maureen Pantoja RN Unavailable Unavail able Source [...] release of HIV test results or diagnoses. [id number] Health Encounter Details Date Type Department Care Team (Late st Contact Info) Description 11/25/2024 9:00 AM EDT Procedure visit [facility] Urology at [place] [facility] 222 [facility] [address] [place] [address] Julieta Rogers PA 222 [facility] [address] [place] [address] Retained ureteral stent of transplanted kidney ([facility]-HCC) (Primary Dx) Social History Tobacco Use Types [...] the past 12 months has th e [employer], [employer], oil, or water company threatened to shut [...] used for procedure: Flex Uro Loaner 12 [facility] Urology Flexible Cystoscope Log Cystoscope Label Serial Number Model Flex Uro 1 [id number] Olympus CYF-VHR Flex Uro 2 1733146 Olympus CYF Type V2R Flex Uro 3 6233669 Olympus CYF Type V2R Flex Uro 4 2757491 Olympus CYF Type V2R Flex Uro 5 3455753 Olympus CYF Type V2R Flex Uro 6 1074910 Olympus CYF Type V2R Flex Uro 7 2031720 CYF VHR Flex Uro 8 3489037 CYF VHR Flex Uro 9 6275755 CYF VHR Flex Uro 10 7953863 CYF VHR Flex Uro 11 6912089 CYF VHR Flex Uro 12 6769690 CYF VHR Uro Loaner 12 [id number] CYF VHR Uro Loaner 13 [id number] CYF VHR Uro Loaner 14 [id number] CYF VHR * NAA Merida - 11/25/2024 [...] documented as of this encounter Care Teams Forensic Chemist Relationship Specialty Start Date End Date Enedina Mcguire NP [address] [place] [address] PCP - General Internal Medicine 10/05/24 Maureen Pantoja, ЮЛИЯ Txp Post Coordinator Transplant Hepatology 10/28/24 documented as of this encounter
--- OUTSIDE RECORDS SUMMARY | 2024-11-25 10:20 | XMS_ITS | Encounter Summary ---
Author Organization [facility] Address [address] [place] [address] Care Team Providers Care Telegraph Dispatcher Name Role Phone Enedina Mcguire NP Primary Care Provider + [phone] Alicia Rankin RN Unavailable Unavail able Source [...] release of HIV test results or diagnoses. [id number] Reason for Visit * Reason Comments Liver Transplant Follow-up Encounter Details Date Type Department Care Team (Late st Contact Info) Description 11/25/2024 10:20 AM EDT Office Visit 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 - Bone health: Vit D level to be drawn ~POD#90. - Labs: Labs (CBC w/ diff, renal panel, liver panel, tacro level) twice a week. Lipid panel, [id number] Vit D level to be drawn at [...] therapeutic drug monitoring- Primary S/P liver transplant ([facility]-HCC) Hypomagnesemia Disorders of magnesium metabolism Kidney transplant [...] documented as of this encounter Care Teams Telegraph Dispatcher Relationship Specialty Start Date End Date Enedina Mcguire NP [address] [place] [address] PCP - General Internal Medicine 10/05/24 Alicia Rankin, ЮЛИЯ Txp Post Coordinator Transplant Hepatology 10/28/24 documented as of this encounter
--- OUTSIDE RECORDS SUMMARY | 2024-11-25 10:50 | XMS_ITS | Encounter Summary ---
Author Organization [facility] Address [address] [place] [address] Care Team Providers Care Machine Joiner Cementer Name Role Phone Enedina Mcguire NP Primary Care Provider + [phone] Maureen Pantoja RN Unavailable Unavail able Source [...] release of HIV test results or diagnoses. [id number] Reason for Visit * Reason Comments Liver Transplant Follow-up Encounter Details Date Type Department Care Team (Late st Contact Info) Description 11/25/2024 10:50 AM EDT Office Visit [facility] Liver Transplant at [place] [address] [place] [address] Leisa Juarez MD [address] [place] [address] 2nd Floor [place] [address] Seble Colon [facility] [address] Kid[place] [address] NADIYA (acute kidney injury) ([facility]) (Primary Dx); Kidney replaced by transplant; Metabolic [...] the past 12 months has th e [employer], [employer], oil, or water company threatened to shut [...] Renal cell carcinoma ([facility]) Thrombocytopenia ([facility]) Thyroid disease Surgical History: Past Surgical History: [...] Resource Strain: Low Risk (07/09/2024) Received from [facility] Overall Financial Resource Strain (CARDIA) [...] Unknown (07/14/2024) Received from [facility] Exercise Vital Sign Days of Exercise per Week: Patient unable to answer Minutes of Exercise per Session: Not on file Stress: Patient Unable To Answer (07/14/2024) Received from [facility] [place] of Occupational Health - Occupational Stress Questionnaire Feeling of Stress : Patient unable to answer Social Connections: Patient Unable To Answer (07/14/2024) Received from [facility] Social Connection and Isolation Panel [NHANES] Frequency of Communication with Friends and Family: Patient unable to answer Frequency of Social Gatherings with Friends and Family: Patient unable to answer Attends [employer]: Patient unable to answer Active Member [...] day. blood-glucose meter (TRUE METRIX GLUCOSE METER) [place] [...] = 12 units lancets (ACCU-CHEK SOFTCLIX LANCETS) [facility] [...] times a day. naloxone (NARCAN) 4 mg/actuation [place] Apply 1 spray in one nostril if [...] Results Component Value Date PTH 36.0 10/25/2024 [id number] 7.1 (L) 10/08/2024 Hemoglobin A1C: Lab Results [...] at 10/27/2024 10:28 AM EDT Signed by: Albetro Rodriguez MD on 10/27/2024 10:28 AM Urine: [...] as of this encounter Care Teams Machine Joiner Cementer Relationship Specialty Start Date End Date Enedina Mcguire NP [address] [place], [place] [id number] PCP - General Internal Medicine 10/05/24 Maureen Pantoja, RN Txp Post Coordinator Transplant Hepatology 10/28/24 documented as of this encounter
--- OUTSIDE RECORDS SUMMARY | 2024-12-04 14:15 | XMS_ITS | Encounter Summary ---
Author Organization [facility] Address [address] [place] [address] Care Team Providers Care Cascade Operator Name Role Phone Enedina Mcguire APRN Primary Care Provider + Reason for Visit * Reason Comments Follow-up Neck Pain Med Management Encounter Details Date Type Department Care Team (Late st Contact Info) Description 12/04/2024 2:15 PM EDT Office Visit [facility] [address] [address] Dawn Christie PA-C [address] [facility] [address] [place] [address] Cervical radiculopathy (Primary Dx); Long-term use of [...] alcohol) 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 [facility] Utilities Answer Date Recorded In the past 12 months has [facility] [employer], gas, oil, or water [employer] threatened to shut off services in your [...] Severity Measure Score 0 10/02/2022 [facility] of Occupat ional Health - Occupational Stress [...] GED or equivalent No 07/09/2024 Preferred Language Maltese 07/09/2024 PHQ-2 Answer Date Recorded Patient Health [...] 2:15 PM EDT Referring Physician: Enedina Mcguire, POLICE COMMUNICATIONS DISPATCHER [address] [place] [address] Primary Physician: Enedina Mcguire APRN CHIEF COMPLAINT [...] has had kidney and liver transplant at [facility] since his last office visit. Additionally, he has been started on Dilaudid 2 mg every 6 hours and gabapentin 100 mg 3 times daily by one of his transplant providers at the [facility]. He was previously prescribed tramadol 50 mg 1 to 2 tablets daily as needed. Patient reports he is following up weekly with his transplant providers at the [facility]. Continues to have some chronic neck [...] Surgeon: Presley Montes De Oca MD; Location: [facility]; Service: Gastroenterology; Laterality: N/A; ENDOSCOPY N/A 07/29/2022 Procedure: ESOPHAGOGASTRODUODENOSCOPY; Surgeon: Presley Montes De Oca MD; Location: [facility] END[facility]; Service: Gastroenterology; Laterality: N/A; WITH APC [...] 6 hours from transplant providers at the [facility] for postoperative pain for the last [...] provided from his transplant team at the [facility]. Additionally, this did reveal positive THC. Tramadol is a controlled substance and stated [place] and any use of illicit drugs/substances such [...] Referrals: None indicated 9. Records: Kristofer reviewed; [facility] notes reviewed 10. Lifestyle goals: Follow-up 1 month for medication management [facility] Pain Management Dawn Christie PA-C documented in this encounter Plan of Treatment Upcoming Encounters Date Type Department Care Team (Late st Contact Info) Description 01/01/2025 2:15 PM EDT Office Visit [facility] [address] [facility] [address] [place] [address] Dawn Christie PA-C [address] [facility] [address] [place] [address] documented as of this encounter Results * (ABNORMAL) Urine Drug Screen - Urine, Clean Catch (12/04/2024 2:50 PM EDT) THC, Screen, Urine Positive(A) Negative 12/04 8:32 PM EDT [facility] Phencyclidine (PCP), Urine Negative Negative 12/04/2024 8:32 PM EDT [facility] Cocaine Screen, Urine Negative Negative 12/04/2024 8:32 PM EDT [facility] Methamphetamine, Ur Negative Negative 12/04/2024 8:32 PM EDT [facility] Opiate Screen Positive(A) Negative 12/04/2024 8:32 PM EDT [facility] Amphetamine Screen, Urine Negative Negative 12/04/2024 8:32 PM EDT [facility] Benzodiazepine Screen, Urine Negative Negative 12/04/2024 8:32 PM EDT [facility] Tricyclic Antidepressants Screen Negative Negative 12/04/2024 8:32 PM EDT [facility] Methadone Screen, Urine Negative Negative 12/04/2024 8:32 PM EDT [facility] Barbiturates Screen, Urine Negative Negative 12/04/2024 8:32 PM EDT [facility] Oxycodone Screen, Urine Negative Negative 12/04/2024 8:32 PM EDT [facility] Buprenorphine, Screen, Urine Negative Negative 12/04/2024 8:32 PM EDT [facility] Urine Urine specimen obtained by clean catch procedure / Unknown Collection / Unknown 12/04/2024 2:50 PM EDT 12/04/2024 2:54 PM EDT Narrative [facility] - 12/04/2024 8:32 PM [...] Christie PA-C URINE ORDERABLES Final R esult [facility]
[address] [place] [address], documented in this encounter Visit Diagnoses Diagnosis [...] documented as of this encounter Care Teams Cascade Operator Relationship Specialty Start Date End Date Enedina Mcguire APRN [address] [place] [address] PCP - General Nurse Practitioner 10/27/24 documented as of this encounter
--- OUTSIDE RECORDS SUMMARY | 2024-12-04 14:55 | XMS_ITS | Encounter Summary ---
[facility] Address [address] [place] [address] Care Team Providers Care Director Operating Room Name Role Phone Enedina Mcguire APRN Primary Care Provider + Encounter Details Date Type Department Care Team (Late st Contact Info) Description 12/04/2024 2:55 PM EDT Lab [facility] [place] [address] [facility] [address] [place] [address] Therapeutic drug monitoring Social History Tobacco Use Types Packs/Day Years Used Date Smoking Tobacco: Former Cigarettes 4 20 Passive Smoke Exposure: Past Smokeless Tobacco: Current Comments:MARIJUANA USE ABOUT 2X PER WEEK - reports no use 08-05-2024 Alcohol Use Standard Drinks/Week Comments Not Currently 0 (1 standard drink = 0.6 oz pure alcohol) 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 [facility] Utilities Answer Date Recorded In the past 12 months has [email or web address], [employer], oil, or water [employer] threatened to shut off services in your [...] Brief Depression Severity Measure Score 0 10/02/2022 [facility] - Occupational Stress Questionnaire [...] GED or equivalent No 07/09/2024 Preferred Language Frisian 07/09/2024 PHQ-2 Answer Date Recorded Patient Health [...] Description 01/01/2025 2:15 PM EDT Office Visit [facility] [address] [address] Vazquez Christie PA-C [address] [place] [address] documented as of this encounter Procedures Procedure Name Priority Date/Time Associated Diagnosis Comments URINE DRUG SCREEN Routine 12/04/2024 2:5 0 PM EDT Therapeutic drug monitoring FENTANYL, URINE Routine 12/04/2024 2:50 PM EDT Therapeutic drug monitoring documented in this encounter Results * Fentanyl, Urine - Urine, Clean Catch (12/04/2024 2:50 PM EDT) Fentanyl, Urine Negative Negative 12/04/2024 9:15 PM EDT [facility] Urine Urine specimen obtained by clean catch procedure / Unknown Collection / Unknown 12/04/2024 2:50 PM EDT 12/04/2024 2:54 PM EDT Narrative [facility] - 12/04/2024 9:15 PM EDT Negative [...] Pratik PA-C URINE ORDERABLES Final R esult [facility]
[address] [place] [address], * (ABNORMAL) Urine Drug Screen - Urine, Clean Catch (12/04/2024 2:50 PM EDT) THC, Screen, Urine Positive(A) Negative 12/04 8:32 PM EDT [facility] Phencyclidine (PCP), Urine Negative Negative 12/04/2024 8:32 PM EDT [facility] Cocaine Screen, Urine Negative Negative 12/04/2024 8:32 PM EDT [facility] Methamphetamine, Ur Negative Negative 12/04/2024 8:32 PM EDT [facility] Opiate Screen Positive(A) Negative 12/04/2024 8:32 PM EDT [facility] Amphetamine Screen, Urine Negative Negative 12/04/2024 8:32 PM EDT [facility] Benzodiazepine Screen, Urine Negative Negative 12/04/2024 8:32 PM EDT [facility] Tricyclic Antidepressants Screen Negative Negative 12/04/2024 8:32 PM EDT [facility] Methadone Screen, Urine Negative Negative 12/04/2024 8:32 PM EDT [facility] Barbiturates Screen, Urine Negative Negative 12/04/2024 8:32 PM EDT [facility] Oxycodone Screen, Urine Negative Negative 12/04/2024 8:32 PM EDT [facility] Buprenorphine, Screen, Urine Negative Negative 12/04/2024 8:32 PM EDT [facility] Urine Urine specimen obtained by clean catch procedure / Unknown Collection / Unknown 12/04/2024 2:50 PM EDT 12/04/2024 2:54 PM EDT Narrative [facility] - 12/04/2024 8:32 PM EDT Cutoff [...] particularly when unconfirmed results are used. us [place] Otilio JACOME-Lalit URINE ORDERABLES Final R esult [facility]
[address] [place] [address], documented in this encounter Visit Diagnoses Diagnosis Therapeutic drug monitoring Encounter for therapeutic drug monitoring documented in this encounter Additional Health Concerns Assessment Noted Time PHQ-2 Depression Total Score: 1 12/31/19 24 3:25 PM EDT documented as of this encounter Care Teams Director Operating Room Relationship Specialty Start Date End Date Enedina Mcguire APRN [address] [place] [address] PCP - General Nurse Practitioner 10/27/24 documented as of this encounter
--- OUTSIDE RECORDS SUMMARY | 2024-12-09 09:50 | XMS_ITS | Encounter Summary ---
Author Organization [facility] Address [address] [place] [address] Care Team Providers Care Blade Grinder Name Role Phone Enedina Mcguire NP Primary Care Provider + [phone] Maureen Pnatoja RN Unavailable Unavail able Source Comments This [...] release of HIV test results or diagnoses. [id number] Health Encounter Details Date Type Department Care Team (Late st Contact Info) Description 12/09/2024 9:50 AM EDT Office Visit [facility] Liver Transplant at [place] [address] [id number] [place] [address] Leisa Juarez MD [address] [place] [address] 2nd Floor [place] [address] Kidney transplant recipient (Primary Dx); Immunosuppressive management encounter following liver transplant ([facility]); Hypomagnesemia; S/P liver transplant ([facility]); Hypertension, unspecified type; Hyperparathyroidism ([facility]) Social History Tobacco Use Types Packs/Day Years [...] liver (CMS-HCC) Esophageal varices (CMS-HCC) Hepatorenal syndrome ([facility]) Hypertension Other hyperlipidemia 07/26/2024 Renal cell carcinoma (CMS-HCC) Thrombocytopenia ([facility]) Thyroid disease Surgical History: Past Surgical [...] No Physical Activity: Unknown (07/14/2024) Received from [facility] Exercise Vital Sign Days of Exercise per Week: Patient unable to answer Minutes of Exercise per Session: Not on file Stress: Patient Unable To Answer (07/14/2024) Received from [facility] [place] of Occupational Health - Occupational Stress Questionnaire Feeling of Stress : Patient unable to answer Social Connections: Patient Unable To Answer (07/14/2024) Received from [facility] Social Connection and Isolation Panel [...] times a day. naloxone (NARCAN) 4 mg/actuation [place] Apply 1 spray in one nostril if [...] Results Component Value Date PTH 36.0 10/25/2024 [id number] 7.1 (L) 10/08/2024 Hemoglobin A1C: Lab Results [...] Discussed with Dr. Juarez. Lauren Santos, SAMSON, KNIFEMAN, MEDICAL DATA ENTRY CLERK- Transplant Nephrology [phone] Preferred contact: secure chat The HPI, ROS, [...] Primary Immunosuppressive management encounter following liver transplant ([facility]) Hypomagnesemia Disorders of magnesium metabolism S/P liver transplant ([facility]) Hypertension, unspecified type Hyperparathyroidism ([facility]) Hyperparathyroidism, unspecified documented in this encounter Additional Health Concerns Infection Onset Date Last Indicated Resolved Time 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
--- OUTSIDE RECORDS SUMMARY | 2024-12-09 10:20 | XMS_ITS | Encounter Summary ---
Author Organization [facility] Address [address] [place] [address] Care Team Providers Care Assistant Pastry Chef Name Role Phone Enedina Mcguire NP Primary Care Provider + [phone] Maureen Pantoja RN Unavailable Unavail able Source [...] release of HIV test results or diagnoses. [id number] Reason for Visit * Reason Comments Liver Transplant Follow-up Encounter Details Date Type Department Care Team (Late st Contact Info) Description 12/09/2024 10:20 AM EDT Office Visit [facility] Liver Transplant at [facility] [address] [facility] [address] [place] [address] Harvey Domínguez III, MD [address] [facility] [address] [place] [address] Encounter for therapeutic drug monitoring [...] the past 12 months has th e [employer], [employer], oil, or water [employer] threatened to shut off services in your [...] Nutrition: patient continues close f/u w/ transplant data communications analyst. - Bone health: Vit D level [...] Other (See Comments) Became Manic Cosigned by Harevy Domínguez III, MD at 12/09/2024 10:04 PM [...] as of this encounter Care Teams Assistant Pastry Chef Relationship Specialty Start Date End Date Enedina Mcguire NP [address] [place] [address] PCP - General Internal Medicine 10/05/24 Maureen Pantoja, ЮЛИЯ Txp Post Coordinator Transplant Hepatology 10/28/24 documented as of this encounter
--- OUTSIDE RECORDS SUMMARY | 2024-12-16 09:54 | XMS_ITS | Encounter Summary ---
Author Organization [facility] Address [address] [place] [address] Care Team Providers Care Metallographic Technician Name Role Phone Enedina Mcguire NP Primary Care Provider + [phone] Maureen Pantoja RN Unavailable Unavail able Source [...] release of HIV test results or diagnoses. [id number] Health Encounter Details Date Type Department Care Team (Late st Contact Info) Description 11/10/2024 Orders Only [facility] Liver Transplant at [address] [place] [phone] Maureen Pantoja, ЮЛИЯ Liver transplant recipient ([facility]) (Primary Dx); Kidney transplant recipient; Immunosuppressive management encounter following liver transplant ([facility]) Social History Tobacco Use Types Packs/Day Years Used Date Smoking Tobacco: Former Cigarettes Smokeless Tobacco: Current Alcohol Use Standard Drinks/Week Comments Yes 0 (1 standard drink = 0.6 oz pure alcohol) History of alcohol abuse, reports no use in 3 week- typically endorses use as 4 glasses of wine a days Utilities Answer Date Recorded In the past 12 months has [employer], gas, oil, or water [employer] threatened to shut off services in your [...] documented as of this encounter Care Teams Metallographic Technician Relationship Specialty Start Date End Date Enedina Mcguire NP [address] [place] [address] PCP - General Internal Medicine 10/05/24 Maureen Pantoja RN Txp Post Coordinator Transplant Hepatology 10/28/24 documented as of this encounter
--- OUTSIDE RECORDS SUMMARY | 2024-12-16 09:54 | XMS_ITS | Encounter Summary ---
Author Organization [facility] Address [address] [place] [address] Care Team Providers Care Director Of Home Care Hospice Name Role Phone Enedina Mcguire NP Primary Care Provider [phone] Source Comments This information has been disclosed [...] release of HIV test results or diagnoses. [id number] Health Encounter Details Date Type Department Care Team (Late st Contact Info) Description 10/20/2024 Telephone [facility] Liver Transplant at [address] [phone] Mary Butler, RN Social History Tobacco Use [...] Recorded In the past 12 months has [employer], gas, oil, or water [employer] threatened to shut off services in your [...] Hep C donors. He'll also go to [facility] later today vs tomorrow morning for follow up MELD labs that I'll need in order to list him. All questions answered at this time. Lab orders faxed to [facility] at [phone] and emailed to patient. documented in this [...] of this encounter Care Teams Director Of Home Care Hospice Relationship Specialty Start Date End Date Enedina Mcguire NP [address] [place] [address] PCP - General Internal Medicine 10/05/24 documented as of this encounter
--- OUTSIDE RECORDS SUMMARY | 2024-12-16 09:54 | XMS_ITS | Encounter Summary ---
Author Organization [facility] Address [address] [place] [address] Care Team Providers Care Automatic Mold Sander Name Role Phone Enedina Mcguire NP Primary Care Provider + [phone] Maureen Pantoja RN Unavailable Unavail able Source [...] release of HIV test results or diagnoses. [id number] Reason for Visit * Reason Comments Medication Refill Refill Request 1st A ttempt Encounter Details Date Type Department Care Team (Late st Contact Info) Description 10/21/2024 Refill [facility] Gastroenterology at [facility] Office [address] [place] [phone] Gerri Peterson MD [address] [place] [address] Social History Tobacco Use Types Packs/Day Years Used Date Smoking Tobacco: Former Cigarettes Smokeless Tobacco: Current Alcohol Use Standard Drinks/Week Comments Yes 0 (1 standard drink = 0.6 oz pure alcohol) History of alcohol abuse, reports no use in 3 week- typically endorses use as 4 glasses of wine a days Utilities Answer Date Recorded In the past 12 months has [employer], gas, oil, or water [employer] threatened to shut off services in your [...] as of this encounter Care Teams Automatic Mold Sander Relationship Specialty Start Date End Date Enedina Mcguire NP [address] [place] [address] PCP - General Internal Medicine 10/05/24 Maureen Pantoja, ЮЛИЯ Txp Post Coordinator Transplant Hepatology 10/28/24 documented as of this encounter
--- OUTSIDE RECORDS SUMMARY | 2024-12-16 09:54 | XMS_ITS | Encounter Summary ---
Author Organization [facility] Address [address] [place] [address] Care Team Providers Care Staffing Account Manager Name Role Phone Enedina Mcguire NP Primary Care Provider + [phone] Maureen Pantoja RN Unavailable Unavail able Source [...] release of HIV test results or diagnoses. [id number] Health Encounter Details Date Type Department Care Team (Late st Contact Info) Description 12/03/2024 Chart Note [facility] Liver Transplant at [address] [place] [phone] Marlene Ro MA Social History Tobacco Use [...] Recorded In the past 12 months has [employer], gas, oil, or water [employer] threatened to shut off services in [...] 5.0 g/dL Blood Narrative Resulting Agency Comment [facility] Result [facility] Provider LAB BLOOD ORDERABLES Denises l Result * Creatinine, urine, random (12/02/2024 8:01 AM EDT) Creatinine, Urine 48 Urine Narrative Resulting Agency Comment [facility] Result [facility] Provider URINE ORDERABLES Final Re sult * Urinalysis w/Rfl to Microscopic (12/02/2024 8:01 AM EDT) Glucose, UA Negative Negative Ketones, UA Negative Negative Blood, UA Negative Negative Bilirubin, UA Negative Negative Urobilinogen, UA Normal Normal Protein, UA Negative Negative Leukocyte Esterase, UA Negative Negative pH, UA 6.0 4.5 - 8.0 Specific [place], UA 1.010 1.005 - 1.030 Clarity, UA Clear Clear Color, UA Yellow Light Yellow, Yellow Urine Narrative Resulting Agency Comment [facility] Result [facility] Provider URINE ORDERABLES Final Re sult [...] 6.0 10^3/mL Blood Narrative Resulting Agency Comment [facility] Provider LAB BLOOD ORDERABLES Denisse l Result * Urine Protein, Tot, Random (w/o Creat) (12/02/2024 8:01 AM EDT) Total Protein, Ur 10.0 Urine Narrative Resulting Agency Comment [facility] Result [facility] Provider URINE ORDERABLES Final Re sult * (ABNORMAL) Hepatic Function Panel (12/02/2024 8:01 AM EDT) Bilirubin, Direct 0.5 Bilirubin, Indirect 0.2 Alkaline Phosphatase 109 U/L ALT 16 U/L AST 15 U/L Total Bilirubin 0.7 0.1 - 1.4 mg/dL Total Protein 6.0(A) 6.4 - 8.2 g/dL Plasma Narrative Resulting Agency Comment [facility] Result [facility] Provider LAB BLOOD ORDERABLES Denisse l Result documented in this encounter Visit Diagnoses Not on filedocumented in this encounter Additional Health Concerns Infection Onset Date Last Indicated Resolved Time 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
--- OUTSIDE RECORDS SUMMARY | 2024-12-16 09:54 | XMS_ITS | Encounter Summary ---
Author Organization [facility] Address [address] [place] [address] Care Team Providers Care Associate Account Director Name Role Phone Enedina Mcguire NP Primary Care Provider [phone] Source Comments This information has been disclosed [...] release of HIV test results or diagnoses. [id number] Health Encounter Details Date Type Department Care Team (Late st Contact Info) Description 10/17/2024 Chart Note [facility] Kidney Transplant at [address] [place] [phone] Anny Cote, RN Copy of HLA [...] In the past 12 months has [employer], gas, oil, or water [employer] threatened to shut off services in your [...] as of this encounter Care Teams Associate Account Director Relationship Specialty Start Date End Date Enedina Mcguire NP [address] [place] [address] PCP - General Internal Medicine 10/05/24 documented as of this encounter
--- OUTSIDE RECORDS SUMMARY | 2024-12-16 09:54 | XMS_ITS | Encounter Summary ---
Author Organization [facility] Address [address] [place] [address] Care Team Providers Care Hospice Volunteer Coordinator Name Role Phone Enedina Mcguire NP Primary Care Provider + [phone] Maureen Pantoja RN Unavailable Unavail able Source [...] release of HIV test results or diagnoses. [id number] Health Encounter Details Date Type Department Care Team (Late st Contact Info) Description 11/07/2024 Chart Note [facility] Liver Transplant at [address] [place] [phone] Marlene Ro MA FK Pending Social History [...] Recorded In the past 12 months has [employer], gas, oil, or water [employer] threatened to shut off services in your [...] Blood Narrative Resulting Agency Comment [facility] Historical Provider LAB BLOOD ORDERABLES Denisse l [...] 7.5 10^3/mL Blood Narrative Resulting Agency Comment [facility] Historical Provider LAB BLOOD ORDERABLES Denisse l Result * (ABNORMAL) Hepatic Function Panel (11/06/2024 8:36 AM EDT) Pathologist [facility] Bilirubin, Direct 0.7 Bilirubin, Indirect 0.2 Alkaline Phosphatase 142 U/L ALT 59 U/L AST 24 U/L Total Bilirubin 0.9 0.1 - 1.4 mg/dL Total Protein 5.4(A) 6.4 - 8.2 g/dL Plasma Narrative Resulting Agency Comment [facility] Historical Provider LAB BLOOD ORDERABLES Denisse l Result documented in this encounter Visit Diagnoses Not on filedocumented in this encounter Additional Health Concerns Infection Onset Date Last Indicated Resolved Time 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
--- OUTSIDE RECORDS SUMMARY | 2024-12-16 09:54 | XMS_ITS | Encounter Summary ---
Author Organization [facility] Address [address] [place] [address] Care Team Providers Care Paint Stockman Name Role Phone Enedina Mcguire NP Primary Care Provider + [phone] Alicia Rankin RN Unavailable Unavail able Source [...] release of HIV test results or diagnoses. [id number] Health Encounter Details Date Type Department Care Team (Late st Contact Info) Description 12/02/2024 Telephone [facility] Liver Transplant at [address] [phone] Mitzy Gill MA Social History [...] In the past 12 months has e [email or web address], gas, oil, or water company threatened to [...] advised he is almost out of FK. [facility] is working on getting an overnight shipment out to Pt but needs to confirm dosing on script. Sharda also brought the Pt on the line with us. I confirmed we have a prescription that was written on 11/25/24 but it was sent to [facility], not [facility]. Pt states he would like it re-routed to [facility] so they can get this out to him. I advised Pt and Sharda that I would have prescription updated and routed to [facility]. No further needs atthis time. documented in [...] documented as of this encounter Care Teams Paint Stockman Relationship Specialty Start Date End Date Enedina Mcguire NP [address] [place] [address] PCP - General Internal Medicine 10/05/24 Alicia Rankin, ЮЛИЯ Txp Post Coordinator Transplant Hepatology 10/28/24 documented as of this encounter
--- OUTSIDE RECORDS SUMMARY | 2024-12-16 09:54 | XMS_ITS | Encounter Summary ---
Author Organization [facility] Address [address] [place] [address] Care Team Providers Care Fur Coat Sewer Name Role Phone Enedina Mcguire NP Primary Care Provider + [phone] Maureen Pantoja RN Unavailable Unavail able Source [...] release of HIV test results or diagnoses. [id number] Health Encounter Details Date Type Department Care Team (Late st Contact Info) Description 11/07/2024 Telephone [facility] Liver Transplant at [address] [address] Marlene Ro MA Social History [...] Recorded In the past 12 months has [employer], gas, oil, or water [employer] threatened to shut off services in your [...] documented as of this encounter Care Teams Fur Coat Sewer Relationship Specialty Start Date End Date Enedina Mcguire NP [address] [place] [address] PCP - General Internal Medicine 10/05/24 Maureen Pantoja, ЮЛИЯ Txp Post Coordinator Transplant Hepatology 10/28/24 documented as of this encounter
--- OUTSIDE RECORDS SUMMARY | 2024-12-16 09:54 | XMS_ITS | Encounter Summary ---
Author Organization [facility] Address [address] [place] [address] Care Team Providers Care Toe Puller Name Role Phone Enedina Mcguire NP Primary Care Provider + [phone] Maureen Pantoja RN Unavailable Unavail able Source [...] release of HIV test results or diagnoses. [id number] Reason for Visit * Reason Comments Results Encounter Details Date Type Department Care Team (Late st Contact Info) Description 11/07/2024 Telephone [facility] Liver Transplant at [address] [address] Maureen Pantoja, RN Results Social [...] In the past 12 months has e [employer], gas, oil, or water [employer] threatened to shut off services in your [...] as of this encounter Care Teams Toe Puller Relationship Specialty Start Date End Date Enedina Mcguire NP [address] [place] [address] PCP - General Internal Medicine 10/05/24 Maureen Pantoja, RN Txp Post Coordinator Transplant Hepatology 10/28/24 documented as of this encounter
--- OUTSIDE RECORDS SUMMARY | 2024-12-16 09:54 | XMS_ITS | Encounter Summary ---
Author Organization [facility] Address [address] [place] [address] Care Team Providers Care Lightning Protection Installer Name Role Phone Enedina Mcguire NP Primary Care Provider + [phone] Maureen Pantoja RN Unavailable Unavail able Source [...] release of HIV test results or diagnoses. [id number] Health Encounter Details Date Type Department Care Team (Late st Contact Info) Description 11/27/2024 Chart Note [facility] Liver Transplant at [address] [place] [phone] Marlene Ro MA FK Pending 11/27 Labs [...] In the past 12 months has e [employer], gas, oil, or water [employer] threatened to shut off services in [...] 5.0 g/dL Blood Narrative Resulting Agency Comment [facility] Result [facility] Provider LAB BLOOD ORDERABLES Denisse l Result * Protime-INR (11/27/2024 7:50 AM EDT) Pathologist [facility] INR 0.93 0.9 - 1.1 Plasma Narrative Resulting Agency Comment [facility] Result [facility] Provider LAB BLOOD ORDERABLES Denisse l Result * (ABNORMAL) CBC and differential (11/27/2024 7:50 AM EDT) [facility] Hemoglobin 10.2(A) 13.5 - 17.5 g/dL [...] 6.6 10^3/mL Blood Narrative Resulting Agency Comment [facility] Result [facility] Provider LAB BLOOD ORDERABLES Denisse l Result * Hepatic Function Panel (11/27/2024 7:50 AM EDT) Pathologist [facility] Bilirubin, Direct 0.4 Bilirubin, Indirect 0.1 Alkaline Phosphatase 149 U/L ALT 19 U/L AST 13 U/L Total Bilirubin 0.5 0.1 - 1.4 mg/dL Total Protein 6.4 6.4 - 8.2 g/dL Plasma Narrative Resulting Agency Comment [facility] us Historical Provider LAB BLOOD ORDERABLES Denisse l Result documented in this encounter Visit Diagnoses Not on filedocumented in this encounter Additional Health Concerns Infection Onset Date Last Indicated Resolved Time 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
--- OUTSIDE RECORDS SUMMARY | 2024-12-16 09:54 | XMS_ITS | Encounter Summary ---
Author Organization [facility] Address [address] [place] [address] Care Team Providers Care Casino Runner Name Role Phone Enedina Mcguire NP Primary Care Provider + [phone] Maureen Pantoja RN Unavailable Unavail able Source [...] release of HIV test results or diagnoses. [id number] Reason for Visit * Reason Comments Medication Refill Refill Request 1st A ttempt Encounter Details Date Type Department Care Team (Late st Contact Info) Description 10/20/2024 Refill [facility] Gastroenterology at [facility] Office [address] [place] [phone] Gerri Peterson MD [address] [place] [address] Social History Tobacco Use Types Packs/Day Years Used Date Smoking Tobacco: Former Cigarettes Smokeless Tobacco: Current Alcohol Use Standard Drinks/Week Comments Yes 0 (1 standard drink = 0.6 oz pure alcohol) History of alcohol abuse, reports no use in 3 week- typically endorses use as 4 glasses of wine a days Utilities Answer Date Recorded In the past 12 months has [employer], gas, oil, or water [employer] threatened to shut off services in your [...] PHARMACY & PHONE #: [facility] [address] [place], [place] [id number] [address] DATE OF LAST APPT: 09/02/2024 Gerri Peterson [...] as of this encounter Care Teams Casino Runner Relationship Specialty Start Date End Date Enedina Mcguire NP [address] [place] [address] PCP - General Internal Medicine 10/05/24 Maureen Pantoja, RN Txp Post Coordinator Transplant Hepatology 10/28/24 documented as of this encounter
--- OUTSIDE RECORDS SUMMARY | 2024-12-16 09:54 | XMS_ITS | Encounter Summary ---
Author Organization [facility] Address [facility] [place] [address] Care Team Providers Care Replanting Machine Crew Name Role Phone Enedina Mcguire NP Primary Care Provider + [phone] Maureen Pantoja RN Unavailable Unavail able Source [...] release of HIV test results or diagnoses. [id number] Reason for Visit * Reason Comments After Hours Call Passing blood throug h stool states started this morning has had 3 bloody bowel movements kidney and liver txp done 2 weeks ago Encounter Details Date Type Department Care Team (Late st Contact Info) Description 11/09/2024 Telephone [facility] [address] [place] [address] Unknown, Attending Provider After Hours [...] Recorded In the past 12 months has [employer] gas, oil, or water [email or web address] threatened to shut off services in your [...] Caller to Patient and Callback: dionna anderson [phone] Patient of: liver txp txp team Nature of Call: Passing blood through stool states started this morning has had 3 bloody bowel movements kidney and liver txp done 2 weeks ago Pellet Post Inspector Provider Contacted: del turner Time and Method of Contact: via cell phone 1133 am connected coordinator to dionna at 1135 am Advise Caller: If provider does not call back within 30 minutes, please call us back. ROUTE TELEPHONE NOTE - Follow Qgenda and/or Route Directly to Provider. COPY this note into [facility] Teams chat. documented in this [...] documented as of this encounter Care Teams Replanting Machine Crew Relationship Specialty Start Date End Date Enedina Mcguire NP [address] [place] [address] PCP - General Internal Medicine 10/05/24 Maureen Pantoja, RN Txp Post Coordinator Transplant Hepatology 10/28/24 documented as of this encounter
--- OUTSIDE RECORDS SUMMARY | 2024-12-16 09:54 | XMS_ITS | Encounter Summary ---
Author Organization [facility] Address [address] [place] [address] Care Team Providers Care Table Tender Name Role Phone Enedina Mcguire NP Primary Care Provider + [phone] Maureen Pantoja RN Unavailable Unavail able Source [...] release of HIV test results or diagnoses. [id number] Health Encounter Details Date Type Department Care Team (Late st Contact Info) Description 12/01/2024 Telephone [facility] Liver Transplant at [address] [place] [phone] Gladis Chisholm MA Social History Tobacco [...] Recorded In the past 12 months has [employer], gas, oil, or water [employer] threatened to shut off services in your [...] have tried to fax his orders through [employer] but was unsuccessful. The plan is to send him a copy via but wanted confirmation that he had a way to print them out. * Gladis Chisholm MA - 12/01/2024 3:08 PM EDT Pt called to request that an order for a urinalysis be put in for him to get done at [facility]. Please advise. 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
--- OUTSIDE RECORDS SUMMARY | 2024-12-16 09:54 | XMS_ITS | Encounter Summary ---
Author Organization [facility] Address [address] [place] [address] Care Team Providers Care Can Coverer Name Role Phone Enedina Mcguire NP Primary Care Provider + [phone] Maureen Pantoja RN Unavailable Unavail able Source [...] release of HIV test results or diagnoses. [id number] Reason for Visit * Reason Comments Medication Management Requesting RX for New Medication Encounter Details Date Type Department Care Team (Late st Contact Info) Description 10/21/2024 Telephone [facility] Gastroenterology at [facility] [address] [place] [phone] Gerri Peterson MD [address] [place] [address] Medication Management (Requesting RX for [...] In the past 12 months has th [employer], oil, or [employer] threatened to shut off services in your [...] Pt called. States he was discharged from [facility] on 10/17 with instructions to contact PCP to start Rx Torsemide 20 mg one tablet a day. PCP is out of town and was advised by manager mutual fund in office to contact gastro MD to obtain Rx. Pt states he is retaining 30 pounds of fluid and needs MD to send a prescription or return call dali. Pt can be reached at [phone] documented in this encounter Plan of [...] as of this encounter Care Teams Can Coverer Relationship Specialty Start Date End Date Enedina Mcguire NP [address] [place] [address] PCP - General Internal Medicine 10/05/24 Maureen Pantoja, RN Txp Post Coordinator Transplant Hepatology 10/28/24 documented as of this encounter
--- OUTSIDE RECORDS SUMMARY | 2024-12-16 09:54 | XMS_ITS | Encounter Summary ---
Author Organization [facility] Address [address] [place] [address] Care Team Providers Care Iridologist Name Role Phone Enedina Mcguire NP Primary Care Provider + [phone] Maureen Pantoja RN Unavailable Unavail able Source [...] release of HIV test results or diagnoses. [id number] Reason for Visit * Reason Comments Results Encounter Details Date Type Department Care Team (Riky st Contact Info) Description 11/11/2024 Telephone [facility] Liver Transplant at [address] [address] Maureen Pantoja, RN Results Social [...] In the past 12 months has e [employer], gas, oil, or water [employer] threatened to shut off services in your [...] documented as of this encounter Care Teams Iridologist Relationship Specialty Start Date End Date Enedina Mcguire NP [address] [place] [address] PCP - General Internal Medicine 10/05/24 Maureen Pantoja, RN Txp Post Coordinator Transplant Hepatology 10/28/24 documented as of this encounter
--- OUTSIDE RECORDS SUMMARY | 2024-12-16 09:54 | XMS_ITS | Encounter Summary ---
Author Organization [facility] Address [address] [place] [address] Care Team Providers Care Day Camp Unit Leader Name Role Phone Enedina Mcguire NP Primary Care Provider + [phone] Maureen Pantoja RN Unavailable Unavail able Source [...] release of HIV test results or diagnoses. [id number] Health Encounter Details Date Type Department Care Team (Late st Contact Info) Description 11/10/2024 Orders Only [facility] Liver Transplant at [address] [place] [address] Maureen Pantoja, RN Social History Tobacco Use [...] Recorded In the past 12 months has [email or web address], gas, oil, or water [employer] threatened to shut off services in your [...] as of this encounter Care Teams Day Camp Unit Leader Relationship Specialty Start Date End Date Enedina Mcguire NP [address] [place] [address] PCP - General Internal Medicine 10/05/24 Maureen Pantoja, ЮЛИЯ Txp Post Coordinator Transplant Hepatology 10/28/24 documented as of this encounter
--- OUTSIDE RECORDS SUMMARY | 2024-12-16 09:54 | XMS_ITS | Encounter Summary ---
Author Organization [facility] Address [address] [place] [address] Care Team Providers Care Treasury Consultant Name Role Phone Enedina Mcguire NP Primary Care Provider + [phone] Maureen Pantoja RN Unavailable Unavail able Source [...] release of HIV test results or diagnoses. [id number] Reason for Visit * Reason Comments Results Encounter Details Date Type Department Care Team (Riky st Contact Info) Description 11/27/2024 Telephone [facility] Liver Transplant at [address] [address] Maureen Pantoja, RN Results Social [...] In the past 12 months has e [facility], gas, oil, or water [employer] threatened to shut off services in your [...] documented as of this encounter Care Teams Treasury Consultant Relationship Specialty Start Date End Date Enedina Mcguire NP [address] [place] [address] PCP - General Internal Medicine 10/05/24 Maureen Pantoja, ЮЛИЯ Txp Post Coordinator Transplant Hepatology 10/28/24 documented as of this encounter
--- OUTSIDE RECORDS SUMMARY | 2024-12-16 09:54 | XMS_ITS | Encounter Summary ---
Author Organization [facility] Address [address] [place] [address] Care Team Providers Care Chairman & Co Founder Name Role Phone Enedina Mcguire NP Primary Care Provider [phone] Source Comments This information has been disclosed [...] release of HIV test results or diagnoses. [id number] Encounter Details Date Type Department Care Team (Late st Contact Info) Description 10/17/2024 Chart Note [facility] Kidney Transplant at [address] [place] [phone] Anny Cote RN Social History Tobacco Use [...] Recorded In the past 12 months has [employer], gas, oil, or water [employer] threatened to shut off services in your [...] documented as of this encounter Care Teams Chairman & Co Founder Relationship Specialty Start Date End Date Enedina Mcguire NP [address] [place] [address] PCP - General Internal Medicine 10/05/24 documented as of this encounter
--- OUTSIDE RECORDS SUMMARY | 2024-12-16 09:55 | XMS_ITS | Encounter Summary ---
Author Organization [facility] Address [address] [place] [address] Care Team Providers Care Seater Grinder Name Role Phone Enedina Mcguire NP Primary Care Provider [phone] Source Comments This information has been disclosed [...] release of HIV test results or diagnoses. [id number] Reason for Visit * Reason Comments Prescription Issue RX Clarification Req uest Encounter Details Date Type Department Care Team (Late st Contact Info) Description 10/20/2024 Telephone [facility] Gastroenterology at [facility] Office [address] [place] [phone] Gerri Peterson MD [address] [place] [address] Prescription Issue (RX Clarification Request [...] Recorded In the past 12 months has [employer], gas, oil, or water [employer] threatened to shut off services in your [...] to be filled Please return call to [phone]. documented in this encounter Plan of Treatment Not on file documented as of this encounter Visit Diagnoses Not on filedocumented in this encounter Additional Health Concerns Infection Onset Date Last Indicated Resolved Time C. difficile 09/09/2024 09/09/2024 10/27/2024 8:30 AM EDT Assessment Noted Time PHQ-9 Depression Total Score: 17 05/19/2 025 11:00 AM EDT documented as of this encounter Care Teams Seater Grinder Relationship Specialty Start Date End Date Enedina Mcguire NP [address] [place] [address] PCP - General Internal Medicine 10/05/24 documented as of this encounter
--- OUTSIDE RECORDS SUMMARY | 2024-12-16 09:55 | XMS_ITS | Encounter Summary ---
Author Organization [facility] Address [address] [place] [address] Care Team Providers Care Welding Machine Operator/Tender Name Role Phone Enedina Mcguire NP Primary Care Provider + [phone] Maureen Pantoja RN Unavailable Unavail able Source [...] release of HIV test results or diagnoses. [id number] Health Encounter Details Date Type Department Care Team (Late st Contact Info) Description 11/20/2024 Orders Only [facility] Liver Transplant at [address] [place] [phone] Maureen Pantoja, ЮЛИЯ S/P liver transplant (CMS-HCC) (Primary Dx); Immunosuppression ([facility]-H[facility]); Viral disease exposure; Alcohol use Social History [...] In the past 12 months has [employer], gas, oil, or water [employer] threatened to shut off services in [...] Cutoff: 10 ng/mL 11/28/2024 8:24 AM EDT [facility] Comment: Phosphatidylethanol (PEth) homologues result interpretation [...] Cutoff: 10 ng/mL 11/28/2024 8:24 AM EDT [facility] Comment: PEth 16:0/18:2 (PLPEth) Reference ranges are not well established PEth Interpretation Positive. 11/28 8:24 AM T [facility] Comment: ADDITIONAL INFORMATION This report is intended for use in clinical monitoring and management of patients. It is not intended for use in employment-related testing. This test was developed and its performance characteristics determined by [facility] in a manner consistent with CLIA requirements. This test has not been cleared or approved by the U.S. Food and Drug Administration. Test Performed by: [facility] - [address] [address] Jig Fitter: Kathy Ortiz Ph.D.; CLIA# [id number] Whole Blood 11/25/2024 8:42 AM EDT 11/28/2024 8:24 AM EDT [facility] - 11/28/2024 8:24 AM EDT One time lab order to be collected with next set of standing liver transplant labs. Please fax all results to [phone]. Call critical results to [phone]. Harvey Domínguez III, MD LAB BLOOD ORDERABLE S Final Result Performing Organization Address City/[facility]/ZIP Co de Phone Number [facility] [address] [facility]. [address] * HIV-1 RNA, Quantitative, PCR (11/25/2024 8:42 AM EDT) Pathologist [facility] HIV 1 Copies Not Detected copies/mL 11/26/2024 10:57 AM EDT [facility] Comment:Test methodology for HIV-1 RNA quantification is an FDA-approved nucleic acid amplification assay. The Lower Limit of Quantitation (LLoQ) is 20 copies/mL. The linear range is 20- to 10,000,000 copies/mL. The Limit of Detection (LoD) is 13.2 copies/mL. The reference range is Not Detected. HIV [id number] See Note [id number] /mL 11/26/2024 10:57 AM EDT [facility] Comment:HIV-1 RNA not detect ed. Plasma 11/25/2024 8:42 AM EDT 11/25/2024 10:59 AM EDT [facility] - 11/26/2024 10:57 AM EDT One time lab order to be collected with next set of standing liver transplant labs. UNOS requirement. Please fax all results to [phone]. Call critical results to [phone]. Harvey Domínguez III, MD LAB BLOOD ORDERABLE S Final Result Performing Organization Address City/[facility]/ZIP Co de Phone Number [facility] [address]. [address] * Hepatitis C RNA, Quantitative PCR (11/25/2024 8:42 AM EDT) Pathologist [facility] International Units Not Detected IU/mL 11/27/2024 11:35 AM EDT [facility] Comment:Test methodology for HCV RNA quantification is an FDA-approved nucleic acid amplification assay. The Lower Limit of Quantitation (LLOQ) is 15 IU/mL. The linear range of the assay is 15-100,000,000 IU/mL. The Limit of Detection (LoD) is 12.0 IU/mL for EDTA plasma. The reference range is Not Detected. IU log10 See Note log 10 IU/mL 11/27/2024 11:35 AM EDT [facility] Comment:HCV RNA not detected . Plasma 11/25/2024 8:42 AM EDT 11/25/2024 10:59 AM EDT [facility] - 11/27/2024 11:35 AM EDT One time lab order to be collected with next set of standing liver transplant labs. UNOS requirement. Please fax all results to [phone]. Call critical results to [phone]. Harvey Domínguez III, MD LAB BLOOD ORDERABLE S Final Result [facility] [address] [place] [address], [facility] * Hepatitis B Virus (HBV), PCR, Quant (11/25/2024 8:42 AM EDT) Hep B Viral DNA IU/ML Not Detected IU/mL 11/28/2024 10:09 AM EDT [facility] Comment:Test methodology for HBV DNA quantification is an FDA-approved nucleic acid amplification assay. The lower limit of quantitation (LLOQ) is 10 IU/mL. The linear range of the assay is 10-1,000,000,000 IU/mL. The limit of detection (LoD) for plasma is 2.7 IU/mL. The reference range is Not Detected. log 10 HBV as IU/mL See Note log 10 IU/mL 11/28/2024 10:09 AM EDT [facility] Comment:HBV DNA not detected . Plasma 11/25/2024 8:42 AM EDT 11/25/2024 10:59 AM EDT Narrative [facility] - 11/28/2024 10:09 AM EDT One time lab order to be collected with next set of standing liver transplant labs. UNOS requirement. Please fax all results to [phone]. Call critical results to [phone]. us Harvey Domínguez III, MD LAB BLOOD ORDERABLE S Final Result [facility] [address] [place], [place] [address] documented in this encounter Visit [...] documented as of this encounter Care Teams Welding Machine Operator/Tender Relationship Specialty Start Date End Date Enedina Mcguire NP [address] [place] [address] PCP - General Internal Medicine 10/05/24 Maureen Pantoja, RN Txp Post Coordinator Transplant Hepatology 10/28/24 documented as of this encounter
--- OUTSIDE RECORDS SUMMARY | 2024-12-16 09:55 | XMS_ITS | Encounter Summary ---
Author Organization [facility] Address [address] [place] [address] Care Team Providers Care Video Production Engineer Name Role Phone Enedina Mcguire NP Primary Care Provider + [phone] Maureen Pantoja RN Unavailable Unavail able Source [...] release of HIV test results or diagnoses. [id number] Health Encounter Details Date Type Department Care Team (Late st Contact Info) Description 11/21/2024 Orders Only [facility] [address] [facility] [address] [place] [address] Vasile Gordillo MA Social History [...] Recorded In the past 12 months has [employer], gas, oil, or water [employer] threatened to shut off services in your [...] as of this encounter Care Teams Video Production Engineer Relationship Specialty Start Date End Date Enedina Mcguire NP [address] [place] [address] PCP - General Internal Medicine 10/05/24 Maureen Pantoja, ЮЛИЯ Txp Post Coordinator Transplant Hepatology 10/28/24 documented as of this encounter
--- OUTSIDE RECORDS SUMMARY | 2024-12-16 09:55 | XMS_ITS | Encounter Summary ---
Author Organization [facility] Address [address] [place] [address] Care Team Providers Care Group Chief Operator Name Role Phone Enedina Mcguire NP Primary Care Provider + [phone] Maureen Pantoja RN Unavailable Unavail able Source [...] release of HIV test results or diagnoses. [id number] Health Encounter Details Date Type Department Care Team (Late st Contact Info) Description 11/24/2024 Orders Only [facility] Liver Transplant at [address] [place] [address] Maureen Pantoja, RN Social History Tobacco Use [...] Recorded In the past 12 months has [employer], gas, oil, or water [employer] threatened to shut off services in [...] as of this encounter Care Teams Group Chief Operator Relationship Specialty Start Date End Date Enedina Mcguire NP [address] [place] [address] PCP - General Internal Medicine 10/05/24 Maureen Pantoja, ЮЛИЯ Txp Post Coordinator Transplant Hepatology 10/28/24 documented as of this encounter
--- OUTSIDE RECORDS SUMMARY | 2024-12-16 09:55 | XMS_ITS | Encounter Summary ---
Author Organization [facility] Address [address] [place] [address] Care Team Providers Care Vice President Research Name Role Phone Enedina Mcguire NP Primary Care Provider + [phone] Maureen Pantoja RN Unavailable Unavail able Source [...] release of HIV test results or diagnoses. [id number] Health Encounter Details Date Type Department Care Team (Late st Contact Info) Description 12/04/2024 Telephone [facility] Liver Transplant at [address] [address] Marlene Ro MA Social History [...] In the past 12 months has [employer], gas, oil, or water [employer] threatened to shut off services in your [...] I transferred the call andadvised pt to [facility] if no answer. He called again today [...] documented as of this encounter Care Teams Vice President Research Relationship Specialty Start Date End Date Enedina Mcguire NP [address] [place] [address] PCP - General Internal Medicine 10/05/24 Maureen Pantoja, RN Txp Post Coordinator Transplant Hepatology 10/28/24 documented as of this encounter
--- OUTSIDE RECORDS SUMMARY | 2024-12-16 09:55 | XMS_ITS | Encounter Summary ---
Author Organization [facility] Address [facility] [place] [address] Care Team Providers Care Block Layer Name Role Phone Enedina Mcguire NP Primary Care Provider [phone] Source Comments This information has been disclosed [...] release of HIV test results or diagnoses. [id number] Health Encounter Details Date Type Department Care Team (Late st Contact Info) Description 10/20/2024 Orders Only [facility] [address] [place] [address] Abdulkadir Gaspar MD [address] [facility] [address] [place] [address] Social History Tobacco Use Types Packs/Day Years Used Date Smoking Tobacco: Former Cigarettes Smokeless Tobacco: Current Alcohol Use Standard Drinks/Week Comments Yes 0 (1 standard drink = 0.6 oz pure alcohol) History of alcohol abuse, reports no use in 3 week- typically endorses use as 4 glasses of wine a days Utilities Answer Date Recorded In the past 12 months has [employer], gas, oil, or water company threatened to [...] ORDERABLES Final Resul t Performing Organization Address [facility] Co de Phone Number [facility] [address] [place], [place] [address] [address] * [facility] - ABO Typing Report (10/20/2024 5:03 PM EDT) 10/20/2024 5:03 PM EDT us Abdulkadir Gaspar MD LAB BLOOD ORDERABLES Final Resul t Performing Organization Address [facility] Co de Phone Number [facility] [address] [place] [address] documented in this encounter Visit Diagnoses Not on filedocumented in this encounter Additional Health Concerns Infection Onset Date Last Indicated Resolved Time C. difficile 09/09/2024 09/09/2024 10/27/2024 8:30 AM EDT Assessment Noted Time PHQ-9 Depression Total Score: 17 025 11:00 AM EDT documented as of this encounter Care Teams Block Layer Relationship Specialty Start Date End Date Enedina Mcguire NP [address] [place] [address] PCP - General Internal Medicine 10/05/24 documented as of this encounter
--- OUTSIDE RECORDS SUMMARY | 2024-12-16 09:55 | XMS_ITS | Encounter Summary ---
Author Organization [facility] Address [address] [place] [address] Care Team Providers Care Lecturer Of Portuguese Name Role Phone Enedina Mcguire NP Primary Care Provider + [phone] Maureen Pantoja RN Unavailable Unavail able Source [...] release of HIV test results or diagnoses. [id number] Reason for Visit * Reason Comments Results Encounter Details Date Type Department Care Team (Late st Contact Info) Description 12/04/2024 Telephone [facility] Liver Transplant at [address] [address] Maureen Pantoja, RN Results Social [...] In the past 12 months has e [employer], gas, oil, or water [employer] threatened to shut off services in your [...] 7.5 Patient to repeat labs tomorrow at [facility] prior to Liver and Hepatorenal [...] documented as of this encounter Care Teams Lecturer Of Portuguese Relationship Specialty Start Date End Date Enedina Mcguire NP [address] [place] [address] PCP - General Internal Medicine 10/05/24 Maureen Pantoja, RN Txp Post Coordinator Transplant Hepatology 10/28/24 documented as of this encounter
--- OUTSIDE RECORDS SUMMARY | 2024-12-16 09:55 | XMS_ITS | Encounter Summary ---
Author Organization [facility] Address [address] [place] [address] Care Team Providers Care Dredge Worker Name Role Phone Enedina Mcguire NP Primary Care Provider + [phone] Maureen Pantoja RN Unavailable Unavail able Source [...] release of HIV test results or diagnoses. [id number] Health Encounter Details Date Type Department Care Team (Late st Contact Info) Description 11/20/2024 Refill [facility] Liver Transplant at [address] [place] [phone] Maureen Pantoja, RN Social History Tobacco Use [...] Recorded In the past 12 months has [employer], gas, oil, or water [employer] threatened to shut off services in [...] documented as of this encounter Care Teams Dredge Worker Relationship Specialty Start Date End Date Enedina Mcguire NP [address] [place] [address] PCP - General Internal Medicine 10/05/24 Maureen Pantoja, ЮЛИЯ Txp Post Coordinator Transplant Hepatology 10/28/24 documented as of this encounter
--- OUTSIDE RECORDS SUMMARY | 2024-12-16 09:55 | XMS_ITS | Encounter Summary ---
Author Organization [facility] Address [address] [place] [address] Care Team Providers Care Therapeutic Program Worker Name Role Phone Enedina Mcguire NP Primary Care Provider + [phone] Maureen Pantoja RN Unavailable Unavail able Source [...] release of HIV test results or diagnoses. [id number] Reason for Visit * Reason Comments Results Encounter Details Date Type Department Care Team (Riky st Contact Info) Description 11/21/2024 Telephone [facility] Liver Transplant at [address] [address] Maureen Pantoja, RN Results Social [...] In the past 12 months has e [employer], gas, oil, or water [employer] threatened to shut off services in your [...] documented as of this encounter Care Teams Therapeutic Program Worker Relationship Specialty Start Date End Date Enedina Mcguire NP [address] [place] [address] PCP - General Internal Medicine 10/05/24 Maureen Pantoja, RN Txp Post Coordinator Transplant Hepatology 10/28/24 documented as of this encounter
--- OUTSIDE RECORDS SUMMARY | 2024-12-16 09:55 | XMS_ITS | Encounter Summary ---
Author Organization [facility] Address [address] [place] [address] Care Team Providers Care Nurse Companion Name Role Phone Enedina Mcguire NP Primary Care Provider + [phone] Maureen Pantoja RN Unavailable Unavail able Source [...] release of HIV test results or diagnoses. [id number] Health Encounter Details Date Type Department Care Team (Late st Contact Info) Description 11/21/2024 Chart Note [facility] Liver Transplant at [address] [place] [phone] Marlene Ro MA FK: 11/18 & 11/20 [...] Recorded In the past 12 months has [employer], gas, oil, or water [employer] threatened to shut off services in [...] level (11/20/2024 8:00 AM EDT) Pathologist [facility] Tacrolimus Lvl 11.5 6 - 15 ng/mL [...] 5.0 g/dL Blood Narrative Resulting Agency Comment [facility] Historical Provider LAB BLOOD ORDERABLES [...] 6.4 10^3/mL Blood Narrative Resulting Agency Comment [facility] Historical Provider LAB BLOOD ORDERABLES Denisse l Result * Hepatic Function Panel (11/20/2024 8:00 AM EDT) Bilirubin, Direct 0.4 Bilirubin, Indirect 0.1 Alkaline Phosphatase 285 U/L ALT 60 U/L AST 25 U/L Total Bilirubin 0.5 0.1 - 1.4 mg/dL Total Protein 6.4 6.4 - 8.2 g/dL Plasma Narrative Resulting Agency Comment [facility] Result [facility] MD LAB BLOOD ORDERABLES Denisse l Result * Tacrolimus level (11/18/2024 7:45 AM EDT) Pathologist [facility] Tacrolimus Lvl 12.5 6 - 15 ng/mL Whole Blood Result [facility] MD LAB BLOOD ORDERABLES Denisse l Result * (ABNORMAL) Hepatic Function Panel (11/18/2024 7:45 AM EDT) [facility] Bilirubin, Direct 0.5 Bilirubin, Indirect 0.1 Alkaline Phosphatase 189 U/L ALT 41 U/L AST 23 U/L Total Bilirubin 0.6 0.1 - 1.4 mg/dL Total Protein 6.1(A) 6.4 - 8.2 g/dL Plasma Narrative Resulting Agency Comment [facility] Result [facility] LAB BLOOD ORDERABLES Denisse l Result * (ABNORMAL) Renal Function Panel w/o EGFR (11/18/2024 7:45 AM EDT) [facility] Glucose 100 mg/dL BUN 43(A) 4 - [...] 5.0 g/dL Blood Narrative Resulting Agency Comment [facility] Result [facility] MD LAB BLOOD ORDERABLES Denisse l Result * (ABNORMAL) CBC and differential (11/18/2024 7:45 AM EDT) [facility] Hemoglobin 10.2(A) 13.5 - 17.5 g/dL Hematocrit [...] 6.0 10^3/mL Blood Narrative Resulting Agency Comment [facility] us Historical Provider LAB BLOOD [...] Date End Date Enedina Mcguire NP [address] [place] [address] PCP - General Internal Medicine 10/05/24 Maureen Pantoja, RN Txp Post Coordinator Transplant Hepatology 10/28/24 documented as of this encounter
--- OUTSIDE RECORDS SUMMARY | 2024-12-16 09:55 | XMS_ITS | Encounter Summary ---
Author Organization [facility] Address [address] [place] [address] Care Team Providers Care Lobby Concierge Name Role Phone Enedina Mcguire NP Primary Care Provider + [phone] Maureen Pantoja RN Unavailable Unavail able Source [...] release of HIV test results or diagnoses. [id number] Health Encounter Details Date Type Department Care Team (Late st Contact Info) Description 11/25/2024 Social Work [facility] Liver Transplant at [address] [place] [phone] Kaylin Willard MSW Social History Tobacco Use [...] Recorded In the past 12 months has [employer], gas, oil, or water [employer] threatened to shut off services in your [...] AM 09/29/2024 11:00 AM 11/25/2024 3:00 PM [id number] Score MAGALYS-7 Total Score 17 13 4 Scores are not concerning for depression/anxiety. No further SW needs identified. 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
--- OUTSIDE RECORDS SUMMARY | 2024-12-16 09:55 | XMS_ITS | Encounter Summary ---
Author Organization [facility] Address [address] [place] [address] Care Team Providers Care Documentation Consultant Name Role Phone Enedina Mcguire NP Primary Care Provider + [phone] Maureen Pantoja RN Unavailable Unavail able Source [...] release of HIV test results or diagnoses. [id number] Health Encounter Details Date Type Department Care Team (Late st Contact Info) Description 11/20/[address] [facility] Liver Transplant at [address] [place] [phone] Maureen Pantoja, RN Social History Tobacco Use [...] Recorded In the past 12 months has [employer], gas, oil, or water [employer] threatened to shut off services in your [...] documented as of this encounter Care Teams Documentation Consultant Relationship Specialty Start Date End Date Enedina Mcguire NP [address] [place] [address] PCP - General Internal Medicine 10/05/24 Maureen Pantoja, ЮЛИЯ Txp Post Coordinator Transplant Hepatology 10/28/24 documented as of this encounter
--- OUTSIDE RECORDS SUMMARY | 2024-12-16 09:55 | XMS_ITS | Encounter Summary ---
Author Organization [facility] Address [address] [place] [address] Care Team Providers Care Boat Puller Name Role Phone Enedina Mcguire NP Primary Care Provider + [phone] Maureen Pantoja RN Unavailable Unavail able Source [...] release of HIV test results or diagnoses. [id number] Health Encounter Details Date Type Department Care Team (Late st Contact Info) Description 12/04/2024 Telephone [facility] Liver Transplant at [address] [place] [phone] Kaylin Willard MSW Social History Tobacco [...] Recorded In the past 12 months has [employer], gas, oil, or water [employer] threatened to shut off services in your [...] prior to transplant and completed treatment with [facility]. SW called and spoke to [...] meets with a counselor weekly and an GED TUTOR. He has spoke with his GED TUTOR and is interested in Naltrexone to help reduce cravings. He will require a letter from our teamto confirm he is able to take Naltrexone, SW to coordinate with RN coordinator. SW reviewed concerns for alcohol use post-transplant and patient was aware and agreeable. Patient to meet with [facility] and transplant CD counselor at next clinic appointment for additional support/follow-up. 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
--- OUTSIDE RECORDS SUMMARY | 2024-12-16 09:55 | XMS_ITS | Encounter Summary ---
Author Organization [facility] Address [address] [place] [address] Care Team Providers Care Special Machine Operator Name Role Phone Enedina Mcguire NP Primary Care Provider + [phone] Maureen Pantoja RN Unavailable Unavail able Source [...] release of HIV test results or diagnoses. [id number] Health Encounter Details Date Type Department Care Team (Late st Contact Info) Description 12/04/2024 Chart Note [facility] Liver Transplant at [address] [place] [phone] Marleen Ro MA FK Pending-12/04 Social History Tobacco [...] In the past 12 months has e [employer], gas, oil, or water [employer] threatened to shut off services in your [...] Tacrolimus level (12/04/2024 7:47 AM EDT) Pathologist [facility] Tacrolimus Lvl 7.5 6 - 15 ng/mL Whole Blood Narrative Resulting Agency Comment [facility] Historical Provider LAB BLOOD ORDERABLES Denisse l Result * (ABNORMAL) Magnesium (12/04/2024 7:47 AM EDT) Pathologist [facility] Magnesium 1.2(A) 1.6 - 2.4 mg/dL Plasma Narrative Resulting Agency Comment [facility] us Historical Provider LAB BLOOD ORDERABLES Denisse [...] Blood Narrative Resulting Agency Comment [facility] Result [facility] MD LAB BLOOD ORDERABLES Denisse l Result * Protime-INR (12/04/2024 7:47 AM EDT) [facility] INR 0.99 0.9 - 1.1 Plasma Narrative Resulting Agency Comment [facility] Result [facility] LAB BLOOD ORDERABLES Denisse l Result * (ABNORMAL) CBC and differential (12/04/2024 7:47 AM EDT) [facility] Hemoglobin 10.7(A) 13.5 - 17.5 g/dL Hematocrit [...] 6.5 10^3/mL Blood Narrative Resulting Agency Comment [facility] Result [facility] LAB BLOOD ORDERABLES Denisse l Result * (ABNORMAL) Hepatic Function Panel (12/04/2024 7:47 AM EDT) [facility] Bilirubin, Direct 0.5 Bilirubin, Indirect 0.2 Alkaline Phosphatase 102 U/L ALT 14 U/L AST 15 U/L Total Bilirubin 0.7 0.1 - 1.4 mg/dL Total Protein 5.8(A) 6.4 - 8.2 g/dL Plasma Narrative Resulting Agency Comment [facility] us Historical Provider LAB BLOOD ORDERABLES Denisse [...] Date End Date Enedina Mcguire NP [address] [employer], [place] [id number] PCP - General Internal Medicine 10/05/24 Maureen Pantoja, ЮЛИЯ Txp Post Coordinator Transplant Hepatology 10/28/24 documented as of this encounter
--- OUTSIDE RECORDS SUMMARY | 2024-12-16 09:57 | XMS_ITS | Encounter Summary ---
Author Organization [facility] Address [address] [place] [address] Care Team Providers Care Project Management Analyst Name Role Phone Enedina Mcguire NP Primary Care Provider [phone] Source Comments This information has been disclosed [...] release of HIV test results or diagnoses. [id number] Reason for Visit * Reason Comments DDLT patient instructions Encounter Details Date Type Department Care Team (Late st Contact Info) Description 10/25/2024 Telephone [facility] Liver Transplant at [address] [address] Krissy Crowell RN DDLT patient [...] Recorded In the past 12 months has [employer] gas, oil, or water [employer] threatened to shut off services in [...] Patient will arrive to PACU, ETA is [phone]. Nursing Director Of Personnel (Humaira), PACU (Emily), SICU (Lizeth), OR (Omar), [...] documented as of this encounter Care Teams Project Management Analyst Relationship Specialty Start Date End Date Enedina Mcguire NP [address] [place], [place] [id number] PCP - General Internal Medicine 10/05/24 documented as of this encounter
--- OUTSIDE RECORDS SUMMARY | 2024-12-16 09:57 | XMS_ITS | Encounter Summary ---
Author Organization [facility] Address [address] [place] [address] Care Team Providers Care Cook Roast Name Role Phone Enedina Mcguire NP Primary Care Provider [phone] Source Comments This information has been disclosed [...] release of HIV test results or diagnoses. [id number] Encounter Details Date Type Department Care [...] Recorded In the past 12 months has [employer], oil, or water [employer] threatened to shut off services in your [...] as of this encounter Care Teams Cook Roast Relationship Specialty Start Date End Date Enedina Mcguire NP [address] [place], [place] [id number] PCP - General Internal Medicine 10/05/24 documented as of this encounter
--- OUTSIDE RECORDS SUMMARY | 2024-12-16 09:59 | XMS_ITS | Encounter Summary ---
Author Organization [facility] Address [address] [place] [address] Care Team Providers Care Operating Room Registered Nurse Name Role Phone Enedina Mcguire NP Primary Care Provider [phone] Source Comments This information has been disclosed [...] release of HIV test results or diagnoses. [id number] Encounter Details Date Type Department Care Team (Late st Contact Info) Description 10/26/2024 Chart Note [facility] Kidney Transplant at [address] [place] [phone] Geri Vasquez, ЮЛИЯ Social History Tobacco Use [...] Recorded In the past 12 months has [employer], gas, oil, or water [employer] threatened to [...] as of this encounter Care Teams Operating Room Registered Nurse Relationship Specialty Start Date End Date Enedina Mcguire NP [address] [place] [address] PCP - General Internal Medicine 10/05/24 documented as of this encounter
--- OUTSIDE RECORDS SUMMARY | 2024-12-16 09:59 | XMS_ITS | Encounter Summary ---
Author Organization [facility] Address [address] [place] [address] Care Team Providers Care Retail Equipment Associate Name Role Phone Enedina Mcguire NP Primary Care Provider [phone] Source Comments This information has been disclosed [...] release of HIV test results or diagnoses. [id number] Encounter Details Date Type Department Care Team (Late st Contact Info) Description 10/22/2024 Chart Note [facility] Liver Transplant at [address] [place] [phone] Mary Butler, RN UNOS VERIFICATION CHECK FORM [...] Recorded In the past 12 months has [employer], [employer], oil, or water [employer] threatened to shut off services in [...] Multidisciplinary Team documentation Initial Hepatology assessment sb grizzly worker within the last year sb Dietitian [...] Multidisciplinary Team documentation Initial Hepatology assessment nlc grizzly worker within the last year nlc Dietitian [...] as of this encounter Care Teams Retail Equipment Associate Relationship Specialty Start Date End Date Enedina Mcguire NP [address] [place], [place] [id number] PCP - General Internal Medicine 10/05/24 documented as of this encounter
--- OUTSIDE RECORDS SUMMARY | 2024-12-16 09:59 | XMS_ITS | Encounter Summary ---
Author Organization [facility] Address [address] [place] [address] Care Team Providers Care Railroad Brake Repairer Name Role Phone Enedina Mcguire NP Primary Care Provider + [phone] Alicia Rankin RN Unavailable Unavail able Source [...] release of HIV test results or diagnoses. [id number] Reason for Visit * Reason Comments Results Encounter Details Date Type Department Care Team (Riky st Contact Info) Description 11/26/2024 Telephone [facility] Liver Transplant at [address] [address] Alicia Rankin, RN Results Social [...] In the past 12 months has e [employer], gas, oil, or water [employer] threatened to shut off services in your [...] as of this encounter Care Teams Railroad Brake Repairer Relationship Specialty Start Date End Date Enedina Mcguire NP [address] [place] [address] PCP - General Internal Medicine 10/05/24 Alicia Rankin, RN Txp Post Coordinator Transplant Hepatology 10/28/24 documented as of this encounter
--- OUTSIDE RECORDS SUMMARY | 2024-12-16 09:59 | XMS_ITS | Encounter Summary ---
Author Organization [facility] Address [address] [place] [address] Care Team Providers Care Shelter Director Name Role Phone Enedina Mcguire APRN Primary Care Provider + Reason for Visit * Reason Comments Med Refill Encounter Details Date Type Department Care Team (Late st Contact Info) Description 07/20/2022 Refill [facility] GASTROENTEROLOGY [address] [facility] [address] [place] [address] jL Tapia APRN [address] [place] [address] Secondary esophageal varices without bleeding Social History [...] or training? Not on file Preferred Language Trinidadian 07/03/2022 Sex and Gender Information Value Date Recorded Sex Assigned at Male 08/20/2024 8:28 PM EDT Legal Sex Male 7:45 AM EDT Gender Identity Not on file Sexual Orientation Not on file documented as of this encounter Plan of Treatment Upcoming Encounters Date Type Department Care Team (Late st Contact Info) Description 01/01/2025 2:15 PM EDT Office Visit [facility]ICAL [facility] PAIN MANAGEMENT [address] [facility] [address] [place] [address] Vazquez Christie PA-C [address] [place] [address] documented as of this encounter Visit Diagnoses Diagnosis Secondary esophageal varices without bleeding documented in this encounter Additional Health Concerns Infection Onset Date Last Indicated Resolved Time COVID Screen (preop/placement) 07/28/2022 07/28/2022 07/29/2022 12:00 AM EDT documented as of this encounter Care Teams Shelter Director Relationship Specialty Start Date End Date Enedina Mcguire APRN [address] [place] [address] PCP - General Nurse Practitioner 10/27/24 documented as of this encounter
--- OUTSIDE RECORDS SUMMARY | 2024-12-16 09:59 | XMS_ITS | Encounter Summary ---
Author Organization [facility] Address [address] [place] [address] Care Team Providers Care Seconds Inspector Name Role Phone Enedina Mcguire NP Primary Care Provider [phone] Source Comments This information has been disclosed [...] release of HIV test results or diagnoses. [id number] Encounter Details Date Type Department Care Team (Late st Contact Info) Description 10/22/2024 Status Update [facility] Kidney Transplant at [facility] [address] [facility] [address] [place] [address] Aaron Gonzalez MD [address] [facility] [address] Social History Tobacco Use Types Packs/Day Years Used Date Smoking Tobacco: Former Cigarettes Smokeless Tobacco: Current Alcohol Use Standard Drinks/Week Comments Yes 0 (1 standard drink = 0.6 oz pure alcohol) History of alcohol abuse, reports no use in 3 week- typically endorses use as 4 glasses of wine a days Utilities Answer Date Recorded In the past 12 months has [employer], gas, oil, or water [employer] threatened to shut off services in your [...] documented as of this encounter Care Teams Seconds Inspector Relationship Specialty Start Date End Date Enedina Mcguire NP [address] [place] [address] PCP - General Internal Medicine 10/05/24 documented as of this encounter
--- OUTSIDE RECORDS SUMMARY | 2024-12-16 09:59 | XMS_ITS | Encounter Summary ---
Author Organization [facility] Address [address] [place] [address] Care Team Providers Care Aging Room Hand Name Role Phone Enedina Mcguire NP Primary Care Provider [phone] Source Comments This information has been disclosed [...] release of HIV test results or diagnoses. [id number] Encounter Details Date Type Department Care Team (Late st Contact Info) Description 10/25/2024 Telephone [facility] Liver Transplant at [address] [address] Krissy Crowell RN Social History Tobacco Use [...] Recorded In the past 12 months has [employer], gas, oil, or water [employer] threatened to shut off services in your [...] granted: N/A OPO: CHACHA OPO Contact: Kiet [phone] Recent illnesses (surgeon aware) [x] Yes [] [...] to bring equipment or solution to [facility]. They will get supplies from dialysis [...] Notifications: Department Phone Comments Time/Name Capacity Management [phone] Notified of patient's pending TXP ORGANS: Liver Kidney Time: Spoke to: OR [phone] OR scheduled for: per Dr. Domínguez Recipient in the OR time 10/25/2024 @ 2200 Acute donor Risk (according to OPTN policy) YES (HCV, HBV, HIV, COVID) Notified Donor is DCD Time: 1145, spoke to Faraz OR electric meter reader: Gladys RAMIREZ ORGAN Time: yes 1155 BLOOD BANK [phone] For Liver and Heart only Spoke to [place] 1219 Nursing Calibration Technician [phone] For delayed call in [facility] at 1158 PACU or Sameday [phone] Delayed call in: If recipient OR is 2 hrs or less from admission, call PACU/Sameday (basedon where nursing casting and pasting supervisor assigns patient) Abdominal Transplant 8CCP [phone] Transfer of care reported for abdominal txp Notified of dialysis type and last session if applicable Time: 8CCP electric meter reader: SICU [phone] Notify about abdominal txp admissions Time: 1215 SICU electric meter reader: Aleks Transplant Surgery Resident/PA QGenda Time: 1219 Spoke to: Dr. Corbett Transplant Surgery Fellow QGenda Time: 1200 Spoke to: Sveta Mojica MD Transplant Research Team [phone] Time: 1218 Spoke to: Macey If applicable, Dialysis Unit EMR Time: Spoke to: Pharmacy IV Room [phone] Liver Only Contact pharmacy to alert that HBIG will be needed when all the following are present: Donor: *HBsAg negative *HBV DNA/KIANA negative Recipient: *HBsAg positive *HBV DNA is detectable on most recent check Time: Spoke to: Heart Transplant CVICU [phone] Transfer of care reported for heart txp Time: CVICU electric meter reader: Email notification to Transplant Team(s) and OR electric meter reader. [Send the following information below to the [...] Venoveno bypass: No Donor info: Donor ID: [id number] Match ID: [id number] Anti-HBc: Negative HBV KIANA: Negative HBsAg: Negative [...] documented as of this encounter Care Teams Aging Room Hand Relationship Specialty Start Date End Date Enedina Mcguire NP [address] [place] [address] PCP - General Internal Medicine 10/05/24 documented as of this encounter
--- OUTSIDE RECORDS SUMMARY | 2024-12-16 09:59 | XMS_ITS | Encounter Summary ---
Author Organization [facility] Address [facility] [place] [place] [address] Care Team Providers Care Physics Professor Name Role Phone Enedina Mcguire NP Primary Care Provider [phone] Source Comments This information has been disclosed [...] release of HIV test results or diagnoses. [id number] Health Encounter Details Date Type Department Care Team (Late st Contact Info) Description 10/22/[address] [facility] [address] [place] [address] Abdulkadir Gaspar MD [address] [facility] [address] [place] [address] Social History Tobacco Use Types Packs/Day Years Used Date Smoking Tobacco: Former Cigarettes Smokeless Tobacco: Current Alcohol Use Standard Drinks/Week Comments Yes 0 (1 standard drink = 0.6 oz pure alcohol) History of alcohol abuse, reports no use in 3 week- typically endorses use as 4 glasses of wine a days Utilities Answer Date Recorded In the past 12 months has [employer], gas, oil, or water company threatened to [...] MD LAB BLOOD ORDERABLES Final Resul t [facility] [address] [place] [address] documented in this encounter Visit Diagnoses Not on filedocumented in this encounter Additional Health Concerns Infection Onset Date Last Indicated Resolved Time C. difficile 09/09/2024 09/09/2024 10/27/2024 8:30 AM EDT Assessment Noted Time PHQ-9 Depression Total Score: 17 025 11:00 AM EDT documented as of this encounter Care Teams Physics Professor Relationship Specialty Start Date End Date Enedina Mcguire NP [address] [place] [address] PCP - General Internal Medicine 10/05/24 documented as of this encounter
--- OUTSIDE RECORDS SUMMARY | 2024-12-16 09:59 | XMS_ITS | Encounter Summary ---
Author Organization [facility] Address [address] [place] [address] Care Team Providers Care Cigar Wrapper Name Role Phone Enedina Mcguire NP Primary Care Provider [phone] Source Comments This information has been disclosed [...] release of HIV test results or diagnoses. [id number] Health Encounter Details Date Type Department Care Team (Late st Contact Info) Description 10/22/2024 Telephone [facility] Psychiatry Transplant at [facility] [address] [facility] [address] [place] [address] Lizeth Warren PsyD [address] [facility] [address] [place] [address] Social History Tobacco Use Types Packs/Day Years Used Date Smoking Tobacco: Former Cigarettes Smokeless Tobacco: Current Alcohol Use Standard Drinks/Week Comments Yes 0 (1 standard drink = 0.6 oz pure alcohol) History of alcohol abuse, reports no use in 3 week- typically endorses use as 4 glasses of wine a days Utilities Answer Date Recorded In the past 12 months has [employer], gas, oil, or water [employer] threatened to shut off services in your [...] appts. Went to voicemail. Left vm referencing [employer] message with availability times listed. Encouraged patient [...] documented as of this encounter Care Teams Cigar Wrapper Relationship Specialty Start Date End Date Enedina Mcguire NP [address] [place] [address] PCP - General Internal Medicine 10/05/24 documented as of this encounter
--- OUTSIDE RECORDS SUMMARY | 2024-12-16 09:59 | XMS_ITS | Encounter Summary ---
Author Organization [facility] Address [address] [place] [address] Care Team Providers Care Quality Eng Name Role Phone Enedina Mcguire NP Primary Care Provider [phone] Source Comments This information has been disclosed [...] release of HIV test results or diagnoses. [id number] Encounter Details Date Type Department Care Team (Late st Contact Info) Description 10/22/2024 Chart Note [facility] Liver Transplant at [address] [place] [phone] Faraz Carballo RN 2nd ABO verified for [...] In the past 12 months has e [facility], gas, oil, or water [employer] threatened to shut off services in [...] as of this encounter Care Teams Quality Eng Relationship Specialty Start Date End Date Enedina Mcguire NP [address] [place] [address] PCP - General Internal Medicine 10/05/24 documented as of this encounter
--- OUTSIDE RECORDS SUMMARY | 2024-12-16 09:59 | XMS_ITS | Encounter Summary ---
Author Organization [facility] Address [address] [place] [address] Care Team Providers Care Shift Coordinator Name Role Phone Enedina Mcguire NP Primary Care Provider [phone] Source Comments This information has been disclosed [...] release of HIV test results or diagnoses. [id number] Encounter Details Date Type Department Care Team (Late st Contact Info) Description 10/22/2024 Chart Note [facility] Kidney Transplant at [address] [place] [phone] Gladis Rainey RN Received most recent [...] Recorded In the past 12 months has [employer], gas, oil, or water [employer] threatened to shut off services in your [...] Rainey RN - 10/22/2024 1:51 PM EDT [facility] VERIFICATION CHECK FORM Julien Anderson [id number] [address] or answer yes or no next to each item to note you have verified the information for listing on this patient in [facility]. First Name nh Last Name dc Middle Initial N/a Date of dc SS# dc Center ID# (MRN) dc ABO x 2 dc / dc I have verified the two (2) blood type results for this candidate are the same blood type and matchthe results reported in UNet. 2728 date [facility] N/a 2728 date [facility] N/a If patient is not on Dialysis Verify date of GFR and GFR 19 on 08/13/24 *Meets CKD Criteria for [facility] listing today with today eGFR 21 on 10/22/24 *Kidney checked in Liver registration as additional organ Listing date in [facility] match nh Listing date notification letter match [facility] and [facility] Updated consent on file [x] Yes [...] Team documentation Nephrology within the last year dc fruit farmworker within the last year dc Dietitian within the last year dc Finance within the last year dc Pharmacy within the last year dc Initial surgery assessment dc RN coordinator documentation nh * Terra Pyle RN - 10/22/2024 1:51 PM EDT [facility] VERIFICATION CHECK FORM Julien Anderson [id number] [address] or answer yes or [...] UNet. 2727 date [facility] N/A 2727 date [facility] N/A If patient is not on Dialysis Verify date of GFR and GFR 19 on 08/13/24 Verified that liver was checked on kidney registration Verified that kidney was checked on liver registration Listing date in [facility] match MW Listing date notification letter match [facility] and [facility] Updated consent on file [x] Yes [] [...] documentation Nephrology within the last year MW fruit farmworker within the last year MW Dietitian within [...] documented as of this encounter Care Teams Shift Coordinator Relationship Specialty Start Date End Date Enedina Mcguire NP [address] [place] [address] PCP - General Internal Medicine 10/05/24 documented as of this encounter
--- OUTSIDE RECORDS SUMMARY | 2024-12-16 09:59 | XMS_ITS | Encounter Summary ---
Author Organization [facility] Address [address] [place] [address] Care Team Providers Care Sports Physiologist Name Role Phone Enedina Mcguire NP Primary Care Provider [phone] Source Comments This information has been disclosed [...] release of HIV test results or diagnoses. [id number] Health Encounter Details Date Type Department Care Team (Late st Contact Info) Description 10/22/2024 Chart Note [facility] [address] [place] [address] Aaron Gonzalez MD [address] [place] [phone] Candidacy for a simultaneous liver-kidney transplant Social [...] Recorded In the past 12 months has [employer], gas, oil, or water [employer] threatened to shut off services in [...] (ESRD) patient in a hospital based, [facility]-hospital based, or home setting. -At the [...] I have discussed this plan with the transcription coordinator and the liver transplant team. documented [...] as of this encounter Care Teams Sports Physiologist Relationship Specialty Start Date End Date Enedina Mcguire NP [address] [place] [address] PCP - General Internal Medicine 10/05/24 documented as of this encounter
--- OUTSIDE RECORDS SUMMARY | 2024-12-16 09:59 | XMS_ITS | Encounter Summary ---
Author Organization [facility] Address [address] [place] [address] Care Team Providers Care Job Printer Name Role Phone Enedina Mcguire NP Primary Care Provider [phone] Source Comments This information has been disclosed [...] release of HIV test results or diagnoses. [id number] Reason for Visit * Reason Comments Appointment Encounter Details Date Type Department Care Team ([facility] st Contact Info) Description 10/24/2024 Telephone [facility] Renal Hypertension Clinic at [address] [place] [phone] Joann Davies MA Appointment Social History Tobacco [...] Recorded In the past 12 months has [employer], [employer], oil, or water [employer] threatened to shut off services in your [...] as of this encounter Care Teams Job Printer Relationship Specialty Start Date End Date Enedina Mcguire NP [address] [place] [address] PCP - General Internal Medicine 10/05/24 documented as of this encounter
--- OUTSIDE RECORDS SUMMARY | 2024-12-16 09:59 | XMS_ITS | Encounter Summary ---
Author Organization [facility] Address [address] [place] [address] Care Team Providers Care Case Consultant Name Role Phone Enedina Mcguire NP Primary Care Provider [phone] Source Comments This information has been disclosed [...] release of HIV test results or diagnoses. [id number] Encounter Details Date Type Department Care Team (Late st Contact Info) Description 10/22/2024 Telephone [facility] Liver Transplant at [address] [address] Mary Butler, RN Social History Tobacco Use [...] Recorded In the past 12 months has [email or web address], gas, oil, or water [employer] threatened to shut off services in [...] will need ~[address] [facility]. documented in this encounter Plan of Treatment Not on file documented as of this encounter Visit Diagnoses Not on filedocumented in this encounter Additional Health Concerns Infection Onset Date Last Indicated Resolved Time C. difficile 09/09/2024 09/09/2024 10/27/2024 8:30 AM EDT Assessment Noted Time PHQ-9 Depression Total Score: 17 025 11:00 AM EDT documented as of this encounter Care Teams Case Consultant Relationship Specialty Start Date End Date Enedina Mcguire NP [address] [place] [address] PCP - General Internal Medicine 10/05/24 documented as of this encounter
--- OUTSIDE RECORDS SUMMARY | 2024-12-16 09:59 | XMS_ITS | Encounter Summary ---
Author Organization [facility] Address [address] [place] [address] Care Team Providers Care Enrollment Representative Name Role Phone Enedina Mcguire NP Primary Care Provider [phone] Source Comments This information has been disclosed [...] release of HIV test results or diagnoses. [id number] Encounter Details Date Type Department Care Team (Late st Contact Info) Description 10/22/2024 [facility] Liver Transplant at [address] [place] [phone] Mary Butler, RN Social History Tobacco Use [...] Recorded In the past 12 months has [employer], gas, oil, or water [employer] threatened to shut off services in your [...] documented as of this encounter Care Teams Enrollment Representative Relationship Specialty Start Date End Date Enedina Mcguire NP [address] [place] [address] PCP - General Internal Medicine 10/05/24 documented as of this encounter
--- OUTSIDE RECORDS SUMMARY | 2024-12-16 09:59 | XMS_ITS | Encounter Summary ---
Author Organization [facility] Address [facility] [place] [address] Care Team Providers Care Wound Care Nurse Name Role Phone Enedina Mcguire NP Primary Care Provider [phone] Source Comments This information has been disclosed [...] release of HIV test results or diagnoses. [id number] Health Encounter Details Date Type Department Care Team (Late st Contact Info) Description 10/27/2024 Orders Only [facility] [address] [place] [address] Abdulkadir Gaspar MD [address] [facility] [address] [place] [address] Social History Tobacco Use [...] Recorded In the past 12 months has [employer], gas, oil, or water company threatened to [...] MD LAB BLOOD ORDERABLES Final Resul t [facility] [address] [place] [address] documented in this encounter Visit Diagnoses Not on filedocumented in this encounter Additional Health Concerns Infection Onset Date Last Indicated Resolved Time C. difficile 09/09/2024 09/09/2024 10/27/2024 8:30 AM EDT Assessment Noted Time PHQ-9 Depression Total Score: 17 025 11:00 AM EDT documented as of this encounter Care Teams Wound Care Nurse Relationship Specialty Start Date End Date Enedina Mcguire NP [address] [place] [address] PCP - General Internal Medicine 10/05/24 documented as of this encounter
--- OUTSIDE RECORDS SUMMARY | 2024-12-16 10:00 | XMS_ITS | Encounter Summary ---
Author Organization [facility] Address [address] [place] [address] Care Team Providers Care Dry Goods Clerk Name Role Phone Soco Patel APRN Primary [...] 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 [facility] Utilities Answer Date Recorded In the past 12 months has [employer], gas, oil, or water [employer] threatened to shut off services in your [...] Brief Depression Severity Measure Score 0 10/02/2022 [facility] of Occupat ional Health - Occupational Stress [...] GED or equivalent No 07/09/2024 Preferred Language Czech 07/09/2024 PHQ-2 Answer Date Recorded Patient Health [...] Description 01/01/2025 2:15 PM EDT Office Visit [facility] PAIN MANAGEMENT [address] [facility] [address] [place] [address] Vaqzuez Christie PA-C [address] [place] [address] [address] [place] [phone] documented as of this encounter Visit Diagnoses Not on filedocumented in this encounter Additional Health Concerns Assessment Noted Time PHQ-2 Depression Total Score: 1 12/31/19 24 3:25 PM EDT documented as of this encounter Care Teams Dry Goods Clerk Relationship Specialty Start Date End Date Soco Patel APRN [address] [facility] [address] [facility] [address] [place] [address] PCP - General Family Medicine 10/22/24 10/26/24 documented as of this encounter
--- OUTSIDE RECORDS SUMMARY | 2024-12-16 10:00 | XMS_ITS | Encounter Summary ---
Author Organization [facility] Address [address] [place] [address] Care Team Providers Care Welder Railcar Mechanic Name Role Phone Enedina Mcguire APRN Primary Care Provider + Reason for Visit * Reason Comments Med Refill Encounter Details Date Type Department Care Team (Late st Contact Info) Description 09/12/2022 Refill [facility] GASTROENTEROLOGY [address] [facility] [address] [place] [address] Lj Tapia APRN [address] [place] [address] Social History Tobacco Use Types Packs/Day Years [...] or training? Not on file Preferred Language Canadian 07/03/2022 Sex and Gender Information Value Date Recorded Sex Assigned at Male 08/20/2024 8:28 PM EDT Legal Sex Male 7:45 AM EDT Gender Identity Not on file Sexual Orientation Not on file documented as of this encounter Plan of Treatment Upcoming Encounters Date Type Department Care Team (Late st Contact Info) Description 01/01/2025 2:15 PM EDT Office Visit [facility] PAIN [facility]GEMENT [address] [address] Vazquez Christie PA-C [address] [place] [address] documented as of this encounter Visit Diagnoses Not on filedocumented in this encounter Care Teams Welder Railcar Mechanic Relationship Specialty Start Date End Date Enedina Mcguire APRN [address] [place] [address] PCP - General Nurse Practitioner 10/27/24 documented as of this encounter
--- OUTSIDE RECORDS SUMMARY | 2024-12-16 10:00 | XMS_ITS | Clinical Summary ---
Author Organization [facility] Address [address] [place] [address] Care Team Providers Care Mold Washer Name Role Phone Enedina Mcguire APRN Primary [...] Encounters Date Type Department Care Team Description 12/12/2024 Refill [facility] INTERNAL MEDICINE [address] [place] [address] Enedina Mcguire APRN Acquired hypothyroidism; Secondary esophageal varices without bleeding 12/05/2024 Telephone [facility] PAIN MANAGEMENT [address] [place] [address] Vazquez Christei PA-C 12/04/2024 2:55 PM EDT Lab [facility] [place] [address] [facility] [address] [place] [address] Therapeutic drug monitoring 12/04/2024 2:15 PM EDT Office Visit [facility] PAIN MANAGEMENT [address] [facility] [address] [place] [address] Vazquez Christie PA-C Cervical radiculopathy (Primary Dx); Long-term use of high-risk medication; Cervical pain (neck); Cervical spondylosis without myelopathy; Therapeutic drug monitoring; Chronic pain syndrome 12/04/2024 Travel 10/27/2024 Telephone [facility] INTERNAL MEDICINE [address] [place] [phone] Enedina Mcguire, TURKISH LINE ATTENDANT CALLBACK 10/22/2024 2:15 PM EDT Office Visit [facility] PAIN MANAGEMENT [address] [address] Vazquez Christie PA-C Cervical radiculopathy (Primary Dx); Cervical spondylosis without myelopathy; Cervical pain (neck); Long-term use of high-risk medication; Therapeutic drug monitoring 10/22/2024 Travel 10/21/2024 Telephone [facility] INTERNAL MEDICINE [address] [place] [phone] Enedina Mcguire, TURKISH LINE ATTENDANT New Med Request 10/20/2024 Telephone [facility] PAIN MANAGEMENT [address] [address] BURGESS - RX REFILL 10/20/2024 Telephone [facility] INTERNAL MEDICINE [address] [place] [phone] Enedina Mcguire, TURKISH LINE ATTENDANT Med Management 10/20/2024 Refill [facility] INTERNAL MEDICINE [address] [place] [phone] Enedina Mcguire, TURKISH LINE ATTENDANT Hepatic encephalopathy; Acquired hypothyroidism; Secondary esophageal varices without bleeding 10/17/2024 Telephone [facility] INTERNAL MEDICINE [address] [place] [phone] Enedina Mcguire, TURKISH LINE ATTENDANT 10/07/2024 Results Follow-Up [facility] INTERNAL MEDICINE [address] [place] [phone] Enedina Mcguire, TURKISH LINE ATTENDANT 10/07/2024 Results Follow-Up [facility] INTERNAL MEDICINE [address] [place] [phone] Enedina Mcguire, TURKISH LINE ATTENDANT 09/19/2024 Refill [facility] INTERNAL MEDICINE [address] [place] [phone] Enedina Mcguire, TURKISH LINE ATTENDANT Cervical pain (neck); Long-term use of high-risk [...] alcohol) 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 [facility] Utilities Answer Date Recorded In [...] Depression Severity Measure Score 0 10/02/2022 [facility]at ional [facility] - Occupational Stress Questionnaire Answer Date [...] GED or equivalent No 07/09/2024 Preferred Language Colombian 07/09/2024 PHQ-2 Answer Date Recorded Patient Health [...] Description 01/01/2025 2:15 PM EDT Office Visit [facility] [address] [facility] [address] [place] [address] Vazquez Christie PA-C [address] [facility] [address] [place] [id number] Health Maintenance Due Date Last Done Comments Hepatitis B (2 of 3 - 19+ 3- dose series) 10/11/2010 09/13/2010 ANNUAL PHYSICAL 10/14/2024 10/15/2023, 10/02/2022 INFLUENZA VACCINE 02/11/2025 03/12/2024, 03/12/2023 LIPID PANEL 10/07/2025 10/07/2024, 03/07/2024, 07/14/2024, Additional history exists TDAP/TD VACCINES (3 - Td or Tdap) 06/03/2028 019, 09/13/2010 COVID-19 Vaccine Discontinued 03/17/2021, , 06/27/2020 HEPATITIS C SCREENING Completed 11/25/2024 , 11/25/2024, 10/25/2024, Additional history exists Pneumococcal Vaccine 0-49 Discontinued Medical Devices Implanted Type Area Deli Cook Device Identifier Shelf Expiration Date Model / Serial / Lot Coil Concerto Pgla Hel Detach Sys 10mm 30cm - [id number] Implanted:Qty: 1 on 07/03/2022 by Timmy Brunner MD at [facility] Implant Left: Vein EV3 A [employer] [id number] / / [id number] Description:Coil is in the s hort gastric vein Coil Concerto Nyl [place] Detach Sys 10mm 30cm - [id number] Implanted:Qty: 1 on 07/03/2022 by Timmy Brunner MD at [facility] Implant Left: Vein EV3 A [employer] [id number] / / [id number] Description:Short gastric ve in Coil Concerto Nyl [place] Detach Sys 10mm 30cm - [id number] Implanted:Qty: 1 on 07/03/2022 by Timmy Brunner MD at [facility] Implant Left: Vein EV3 A [employer] [id number] / / [id number] Description:Short gasrtic ve in Coil Concerto Nyl [place] Detach Sys 10mm 30cm - [id number] Implanted:Qty: 1 on 07/03/2022 by Timmy Brunner MD at [facility] Implant Left: Vein EV3 A [employer] [id number] / / [id number] Description:Short gastric ve in Coil Concerto Nyl [place] Detach Sys 8mm 30cm - [id number] Implanted:Qty: 1 on 07/03/2022 by Timmy Brunner MD at [facility] Implant Left: Vein EV3 A [employer] [id number] / / [id number] Description:Short gastric ve in Coil Concerto Nyl [place] Detach Sys 8mm 30cm - [id number] Implanted:Qty: 1 on 07/03/2022 by Timmy Brunner MD at [facility] Implant Left: Vein EV3 A [employer] [id number] / / [id number] Description:Short gastric ve in Sys Del Liq Emb Trufill Nbca 1g Vl - [id number] Implanted:Qty: 1 on 07/03/2022 by Timmy Brunner MD at [facility] Implant Left: Vein [facility] [id number] / / [id number] Description:Short gastric ve in Plug Vasc Anton Emb Ampltz .027 2ax2s46tp - [id number] Implanted:Qty: 1 on 07/03/2022 by Timmy Brunner MD at [facility] Implant Left: Vein [employer] [id number] / / [id number] Description:Coronary vein Coil Concerto Nyl [place] Detach Sys 8mm 30cm - [id number] Implanted:Qty: 1 on 07/03/2022 by Timmy Brunnre MD at [facility] Implant Left: Vein EV3 A [employer] [id number] / / [id number] Description:CORONARY VEIN Gelatin Emb Embocube 5.02mm 50mg Red - [id number] Implanted:Qty: 1 on 07/03/2022 by Timmy Brunner MD at [facility] Implant Left: Vein [employer] [id number] / / [id number] Description:SHORT GASTRIC VE IN Coil Emb Dona 3.7/Lp .035in 14cm 12mm - [id number] Implanted:Qty: 1 on 07/03/2022 by Timmy Brunner MD at [facility] Implant Left: Vein COOK [id number] / / [id number] Description:SHORT GASTRIC VE IN Coil Concerto Pgla [place] Detach Sys 12mm 30cm - [id number] Implanted:Qty: 1 on 07/03/2022 by Timmy Brunner MD at [facility] Implant Left: Vein EV3 A [employer] [id number] / / [id number] Description:Short gastric ve in Coil Concerto Nyl [place] Detach Sys 8mm 30cm - [id number] Implanted:Qty: 1 on 07/03/2022 by Timmy Brunner MD at [facility] Implant Left: Vein EV3 A [employer] [id number] / / [id number] Description:SHORT GASTRIC VE IN Coil Concerto Nyl [place] Detach Sys 8mm 30cm - [id number] Implanted:Qty: 1 on 07/03/2022 by Timmy Brunner MD at [facility] Implant Left: Vein EV3 A [employer] [id number] / / [id number] Description:Short gastric ve in Coil Concerto Nyl [place] Detach Sys 8mm 30cm - [id number] Implanted:Qty: 1 on 07/03/2022 by Timmy Brunner MD at [facility] Implant Left: Vein EV3 A [employer] [id number] / / [id number] Description:Short gastric ve in Coil Concerto Pgla Hel Detach Sys 14mm 40cm - [id number] Implanted:Qty: 1 on 07/03/2022 by Timmy Brunner MD at [facility] Implant Left: Vein EV3 A [employer] [id number] / / [id number] Description:Short gastric ve in Coil Concerto Pgla Hel Detach Sys 14mm 40cm - [id number] Implanted:Qty: 1 on 07/03/2022 by Timmy Brunner MD at [facility] Implant Left: Vein EV3 [employer] [id number] / / [id number] Description:Short gastric ve in Coil Concerto Pgla [place] Detach Sys 14mm 30cm - [id number] Implanted:Qty: 1 on 07/03/2022 by Timmy Brunner MD at [facility] Implant Left: Vein EV3 A [employer] [id number] / / [id number] Description:Short gastric ve in Coil Concerto Pgla [place] Detach Sys 14mm 30cm - [id number] Implanted:Qty: 1 on 07/03/2022 by Timmy Brunner MD at [facility] Implant Left: Vein EV3 A [employer] [id number] / / [id number] Description:Short gastric ve in Coil Concerto Pgla [place] Detach Sys 14mm 30cm - [id number] Implanted:Qty: 1 on 07/03/2022 by Timmy Brunner MD at [facility] Implant Left: Vein EV3 A [employer] [id number] / / [id number] Description:Short gastric ve in Procedures Procedure Name Priority Date/Time Associated Diagnosis Comments SCANNED - LABS 12/08/2024 SCANNED - LABS 12/08/2024 SCANNED - LABS 12/08/2024 FENTANYL, URINE Routine 12/04/2024 2:50 PM EDT [...] to Health Maintenance Results * LABS SCANNED (12/08/2024) Only the most recent of27 resultswithin the time period is included. us Enedina Mcguire APRN LAB BLOOD ORDERABLES Fin al Result * (ABNORMAL) Urine Drug Screen - Urine, Clean Catch (12/04/2024 2:50 PM EDT) [facility] THC, Screen, Urine Positive(A) Negative 12/04 8:32 PM EDT [facility] Phencyclidine (PCP), Urine Negative Negative 12/04/2024 8:32 PM EDT [facility] Cocaine Screen, Urine Negative Negative 12/04/2024 8:32 PM EDT [facility] Methamphetamine, Ur Negative Negative 12/04/2024 8:32 PM EDT [facility] Opiate Screen Positive(A) Negative 12/04/2024 8:32 PM EDT [facility] Amphetamine Screen, Urine Negative Negative 12/04/2024 8:32 PM EDT [facility] Benzodiazepine Screen, Urine Negative Negative 12/04/2024 8:32 PM EDT [facility] Tricyclic Antidepressants Screen Negative Negative 12/04/2024 8:32 PM EDT [facility] Methadone Screen, Urine Negative Negative 12/04/2024 8:32 PM EDT [facility] Barbiturates Screen, Urine Negative Negative 12/04/2024 8:32 PM EDT [facility] Oxycodone Screen, Urine Negative Negative 12/04/2024 8:32 PM EDT [facility] Buprenorphine, Screen, Urine Negative Negative 12/04/2024 8:32 PM EDT [facility] Urine Urine specimen obtained by clean catch procedure / Unknown Collection / Unknown 12/04/2024 2:50 PM EDT 12/04/2024 2:54 PM EDT [facility] - 12/04/2024 8:32 PM EDT [...] particularly when unconfirmed results are used. us Archbold Otilio Luzerne PA-C URINE ORDERABLES Final R esult Performing Organization Address [facility]/ZIP Co de Phone Number [facility]
[address] [place] [address], * Fentanyl, Urine - Urine, Clean Catch (12/04/2024 2:50 PM EDT) Fentanyl, Urine Negative Negative 12/04/2024 9:15 PM EDT [facility] Urine Urine specimen obtained by clean catch procedure / Unknown Collection / Unknown 12/04/2024 2:50 PM EDT 12/04/2024 2:54 PM EDT Narrative [facility] - 12/04/2024 9:15 PM [...] unconfirmed results are used. us Vazquez Otilio Luzerne PA-C URINE ORDERABLES Final R esult Performing Organization Address [facility] Co de Phone Number [facility]
[address] [place] [address], * IMAGING SCANNED (10/17/2024) Only the most recent of6 resultswithin the time period is included. Anatomical Region Laterality Modality Radiographic Rachel ging Enedina Mcguire TURKISH LINE ATTENDANT IMG DIAGNOSTIC IMAGING O RDERABLES Final Result from Last 3 Months Insurance UMR Advance Directives * CPR (Attempt to Resuscitate) [...] Of Support Discussed With: Patient Care Teams Mold Washer Relationship Specialty Start Date End Date Enedina Mcguire APRN [address] [place] [address] PCP - General Nurse Practitioner 10/27/24
--- OUTSIDE RECORDS SUMMARY | 2024-12-16 10:00 | XMS_ITS | Encounter Summary ---
[facility] Address [address] [place] [address] Care Team Providers Care Assembler Metal Furniture Name Role Phone Soco Patel APRN Primary Care Provid er Reason for Visit * Reason Onset Date Comments New Med Request 10/21/2024 Encounter Details Date Type Department Care Team ([facility] st Contact Info) Description 10/21/2024 Telephone [facility] INTERNAL MEDICINE [address] [place] [address] Enedina Mcguire APRN [address] [place] [address] New Med Request Social History Tobacco Use Types Packs/Day Years Used Date Smoking Tobacco: Former Cigarettes 4 20 Passive Smoke Exposure: Past Smokeless Tobacco: Current Comments:MARIJUANA USE ABOUT 2X PER WEEK - reports no use 08-05-2024 Alcohol Use Standard Drinks/Week Comments Not Currently 0 (1 standard drink = 0.6 oz pure alcohol) 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 [facility] Utilities Answer Date Recorded In the past 12 months has [employer], gas, oil, or water [employer] threatened to shut off services in your [...] Brief Depression Severity Measure Score 0 10/02/[address] [facility] - Occupational Stress Questionnaire Answer [...] GED or equivalent No 07/09/2024 Preferred Language Nigerien 07/09/2024 PHQ-2 Answer Date Recorded Patient Health [...] Anderson Relationship: Self Best call back number: [phone] What medication are you requesting: TORSEMIDE What [...] is your preferred pharmacy and phone number: [facility]- [place], [place] - [address] - [phone] [facility] [phone] FX Additional notes: PATIENT STATES HE HAS [...] [facility] [address] [facility] [address] [place] [address] Vazquez Christie PA-C [address] [facility] [address] [place] [address] documented as of this encounter Visit Diagnoses Not on filedocumented in this encounter Additional Health Concerns Assessment Noted Time PHQ-2 Depression Total Score: 1 12/31/19 24 3:25 PM EDT documented as of this encounter Care Teams Assembler Metal Furniture Relationship Specialty Start Date End Date Soco Patel APRN [address] [facility] [address] [place] [address] PCP - General Family Medicine 10/22/24 10/26/24 documented as of this encounter
--- OUTSIDE RECORDS SUMMARY | 2024-12-16 10:00 | XMS_ITS | Encounter Summary ---
Author Organization Healthcare Address [address] [place] [address] Care Team Providers Care Television Equipment Operator Name Role Phone Jony Conde MD Primary Care Provider [phone] Lj Tapia HEALTH ANALYST Unavailable [phone] Enedina Mcguire HEALTH ANALYST Primary Care Provider + Nuria Fall FEEDER TENDER Unavailable Unavaila ble Encounter Details Date Type Department Care Team (Late st Contact Info) Description 07/02/2022 Orders Only External Location [address] [place] [id number] Provider, External Social History Tobacco Use Types [...] PM EDT Office Visit [facility] [place] [address] [facility], [address] [place] [address] Vincent Braga MD [address] [facility] [address] [place] [address] documented as of this encounter Procedures Procedure [...] on filedocumented in this encounter Care Teams Television Equipment Operator Relationship Specialty Start Date End Date Jony Conde MD [address] [place] [address] [address] [place] [address] PCP - General 07/18/22 12/03/22 Enedina Mcguire APRN [address] [place] [address] PCP - General 12/04/22 Lj Tapia APRN [facility]0 [place] [address] Referring Physician Gastroenterology 07/18/22 Nuria Fall LPN [facility] TCM Nurse 07/24/24 08/23/24 documented as of this encounter
--- OUTSIDE RECORDS SUMMARY | 2024-12-16 10:00 | XMS_ITS | Encounter Summary ---
Author Organization [facility] Address [address] [place] [address] Care Team Providers Care Lokie Engineer Name Role Phone Enedina Mcguire APRN Primary Care Provider + Reason for Visit * Reason Onset Date Comments DR SONG - RX REFILL 10/20/2024 Encounter Details Date Type Department Care Team (Late st Contact Info) Description 10/20/2024 Telephone [facility] PAIN MANAGEMENT [address] [address] Tye Song MD 1760 [facility] 302 [place] [address] DR SONG - RX REFILL Social History [...] Recorded In the past 12 months has [employer], gas, oil, or water [employer] threatened to shut off services in your [...] Score 0 10/02/2022 [facility] - Occupational Stress [...] GED or equivalent No 07/09/2024 Preferred Language Australian 07/09/2024 PHQ-2 Answer Date Recorded Patient Health [...] HOURS Pharmacy where request should be sent: [facility] [place] [facility] [address] [phone] [facility] [phone] FX [phone] Last office visit with prescribing clinician: 08/06/2023 [...] 01/01/2025 2:15 PM EDT Office Visit [facility] PAIN MANAGEMENT [address] [address] Vazquez Christie PA-C [address] [address] documented as of this encounter Visit Diagnoses Not on filedocumented in this encounter Additional Health Concerns Assessment Noted Time PHQ-2 Depression Total Score: 1 12/31/19 24 3:25 PM EDT documented as of this encounter Care Teams Lokie Engineer Relationship Specialty Start Date End Date Enedina Mcguire APRN [address] [place] [address] PCP - General Nurse Practitioner 09/04/22 10/21/24 documented as of this encounter
--- OUTSIDE RECORDS SUMMARY | 2024-12-16 10:00 | XMS_ITS | Encounter Summary ---
Author Organization Healthcare Address [address] [place] [address] Care Team Providers Care Notary Public Name Role Phone Jony Conde MD Primary Care Provider [phone] Lj Tapia BAG MACHINE ADJUSTER Unavailable [phone] Enedina Mcguire BAG MACHINE ADJUSTER Primary Care Provider + Nuria Fall INDEPENDENT CONSULTANT Unavailable Unavaila ble Encounter Details Date Type Department Care Team (Late st Contact Info) Description 07/04/2022 Orders Only External Location [address] [place] [address] Presley Montes DeO ca MD 1720 [facility] 302 [place], [place] [id number] Social History Tobacco Use Types Packs/Day Years [...] PM EDT [facility] [address], [address] [place] [address] Vincent Braga MD [address] [facility] [address] [place] [address] documented as of this encounter Procedures Procedure [...] on filedocumented in this encounter Care Teams Notary Public Relationship Specialty Start Date End Date Jony Conde MD 9 [facility] [address] [place] [address] PCP - General 07/18/22 12/03/22 Enedina Mcguire APRN [address] [place] [address] PCP - General 12/04/22 Lj Tapia APRN [address] [place] [address] Referring Physician Gastroenterology 07/18/22 Nuria Fall LPN [facility] TCM Nurse 07/24/24 08/23/24 documented as of this encounter
--- OUTSIDE RECORDS SUMMARY | 2024-12-16 10:00 | XMS_ITS | Encounter Summary ---
Author Organization [facility] ystem Address [address] [place] [address] Care Team Providers Care Brine Maker Name Role Phone Enedina Mcguire APRN Primary Care Provider + Encounter Details Date Type Department Care Team (Late st Contact Info) Description 12/05/2024 Telephone [facility] PAIN [facility]EMENT [address] [address] Vazquez Christie PA-C [address] [place] [address] Social History Tobacco Use Types Packs/Day Years Used Date Smoking Tobacco: Former Cigarettes 4 20 Passive Smoke Exposure: Past Smokeless Tobacco: Current Comments:MARIJUANA USE ABOUT 2X PER WEEK - reports no use 08-05-2024 Alcohol Use Standard Drinks/Week Comments Not Currently 0 (1 standard drink = 0.6 oz pure alcohol) 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 [facility] Utilities Answer Date Recorded In the past 12 months has [employer], [employer], oil, or water [employer] threatened to shut off services in your [...] Measure Score 0 10/02/2022 [facility] - Occupational Stress Questionnaire Answer [...] GED or equivalent No 07/09/2024 Preferred Language Kiswahili 07/09/2024 PHQ-2 Answer Date Recorded Patient Health [...] [facility] 3000 [facility] 330 [place] [address] Vazquez Christie PA-C 1760 [facility] 302 [place] [address] documented as of this encounter Visit Diagnoses Not on filedocumented in this encounter Additional Health Concerns Assessment Noted Time PHQ-2 Depression Total Score: 1 12/31/19 24 3:25 PM EDT documented as of this encounter Care Teams Brine Maker Relationship Specialty Start Date End Date Enedina Mcguire APRN [address] [place] [address] PCP - General Nurse Practitioner 10/27/24 documented as of this encounter
--- OUTSIDE RECORDS SUMMARY | 2024-12-16 10:00 | XMS_ITS | Encounter Summary ---
[facility] [address] [place] [address] Care Team Providers Care Soft Water Mechanic Name Role Phone Enedina Mcguire APRN Primary Care Provider + Reason for Visit * Reason Onset Date Comments Med Management 10/20/2024 Encounter Details Date Type Department Care Team ([facility] st Contact Info) Description 10/20/[address] [facility] INTERNAL MEDICINE [address] [place] [address] Enedina Mcguire APRN [address] [place] [address] Med Management Social History Tobacco Use Types Packs/Day Years Used Date Smoking Tobacco: Former Cigarettes 4 20 Passive Smoke Exposure: Past Smokeless Tobacco: Current Comments:MARIJUANA USE ABOUT 2X PER WEEK - reports no use 08-05-2024 Alcohol Use Standard Drinks/Week Comments Not Currently 0 (1 standard drink = 0.6 oz pure alcohol) 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 [facility] Utilities Answer Date Recorded In the past 12 months has [employer], [employer], oil, or water [employer] threatened to shut off services in your [...] Brief Depression Severity Measure Score 0 10/02/2022 [facility] - Occupational Stress Questionnaire Answer [...] GED or equivalent No 07/09/2024 Preferred Language Congolese 07/09/2024 PHQ-2 Answer Date Recorded Patient Health [...] Anderson Relationship: Self Best call back number: [phone] What medication are you requesting: POTASSIUM CHLORIDE 20 MEQ 2 TIMES A DAY SODIUM BICARB CIPROFLAXIN 500 MG DAILY URSODIAL 200 MG CAPSULE TORSEMIDE 20 MG ONCE DAILY OXYCODONE 5 MG ONE TIME EVERY SIX HOURS NEEDED If a prescription is needed, what is your preferred pharmacy and phone number: [facility] [place] [facility] [address] [phone] [facility] [phone] Additional notes: PATIENT IS CURRENTLY UNABLE TO COME IN FOR AN APPOINTMENT, BUT NEEDS THESE MEDICATIONS. documented in this encounter Plan of Treatment Upcoming Encounters Date Type Department Care Team (Late st Contact Info) Description 01/01/2025 2:15 PM EDT Office Visit [facility] [address] [facility] 330 [place] [address] Vazquez Christie PA-C [address] [address] documented as of this encounter Visit Diagnoses Diagnosis Acquired hypothyroidism Unspecified hypothyroidism Secondary esophageal varices without bleeding documented in this encounter Additional Health Concerns Assessment Noted Time PHQ-2 Depression Total Score: 1 12/31/19 24 3:25 PM EDT documented as of this encounter Care Teams Soft Water Mechanic Relationship Specialty Start Date End Date Enedina Mcguire APRN [address] [place] [address] PCP - General Nurse Practitioner 09/04/22 10/21/24 documented as of this encounter
--- OUTSIDE RECORDS SUMMARY | 2024-12-16 10:00 | XMS_ITS | Encounter Summary ---
[facility] [address] [place] [address] Care Team Providers Care Coagulating Bath Mixer Name Role Phone Enedina Mcguire APRN Primary Care Provider + Encounter Details Date Type Department Care Team ([facility] st Contact Info) Description 10/17/2024 Telephone [facility] INTERNAL MEDICINE [address] [place] [address] Enedina Mcguire APRN [address] [place] [address] Social History Tobacco Use Types Packs/Day Years Used Date Smoking Tobacco: Former Cigarettes 4 20 Passive Smoke Exposure: Past Smokeless Tobacco: Current Comments:MARIJUANA USE ABOUT 2X PER WEEK - reports no use 08-05-2024 Alcohol Use Standard Drinks/Week Comments Not Currently 0 (1 standard drink = 0.6 oz pure alcohol) 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 [facility] Utilities Answer Date Recorded In the past 12 months has [employer], [employer], oil, or water [employer] threatened to shut off services in [...] Brief Depression Severity Measure Score 0 10/02/2022 [facility] - Occupational Stress Questionnaire [...] GED or equivalent No 07/09/2024 Preferred Language Sami 07/09/2024 PHQ-2 Answer Date Recorded Patient Health [...] PM EDT PATIENT WAS JUST DISCHARGE FROM [facility] AND THEY HAVE PLACED THE PATIENT ON OXY 5MG. THE HOSPITAL ONLY GAVE THE PATIENT 3 DAYS OF MEDS. PATIENT IS REQUESTING A REFILL TO GET HIM TO THE APPT WITH PCP ON 10/27. PHARM: [facility] [place] [phone] CALL BACK: [phone] documented in this encounter Plan of Treatment Upcoming Encounters Date Type Department Care Team (Late st Contact Info) Description 01/01/2025 2:15 PM EDT Office Visit [facility] PAIN MANAGEMENT [address] [address] Vazquez Christie PA-C [address] [address] documented as of this encounter Visit Diagnoses Not on filedocumented in this encounter Additional Health Concerns Assessment Noted Time PHQ-2 Depression Total Score: 1 12/31/19 24 3:25 PM EDT documented as of this encounter Care Teams Coagulating Bath Mixer Relationship Specialty Start Date End Date Enedina Mcguire APRN [address] [place] [address] PCP - General Nurse Practitioner 10/27/24 documented as of this encounter
--- OUTSIDE RECORDS SUMMARY | 2024-12-16 10:00 | XMS_ITS | Encounter Summary ---
Author Organization Healthcare Address [address] [place] [address] Care Team Providers Care Director Of Digital Technology Name Role Phone Jony Conde MD Primary Care Provider [phone] Lj Tapia COMPLIANCE COUNSEL Unavailable [phone] Enedina Mcguire COMPLIANCE COUNSEL Primary Care Provider + Nuria Fall DISTRICT OR DISTRICT OFFICE DIRECTOR Unavailable Unavaila ble Encounter Details Date Type Department Care Team (Late st Contact Info) Description 07/04/2022 Orders Only External Location [address] [place] [address] Presley Montes De Oca MD 1720 [facility] 302 [place], [place] [id number] Social History Tobacco Use Types Packs/Day Years [...] PM EDT [facility] [address], [address] [place] [address] Vincent Braga MD [address] [facility] [address] [place] [address] documented as of this encounter Procedures Procedure [...] on filedocumented in this encounter Care Teams Director Of Digital Technology Relationship Specialty Start Date End Date Jony Conde MD [address] [place] [address] [address] [place] [address] PCP - General 07/18/22 12/03/22 Enedina Mcguire APRN [address] [place] [address] PCP - General 12/04/22 Lj Tapia APRN [address] [place] [address] Referring Physician Gastroenterology 07/18/22 Nuria Fall LPN [facility] TCM Nurse 07/24/24 08/23/24 documented as of this encounter
--- OUTSIDE RECORDS SUMMARY | 2024-12-16 10:00 | XMS_ITS | Encounter Summary ---
Author Organization Healthcare Address [address] [place] [address] Care Team Providers Care Fifth Grade Teacher Name Role Phone Jony Conde MD Primary Care Provider [phone] Lj Tapia WIND POWER PROJECT MANAGER Unavailable [phone] Enedina Mcguire WIND POWER PROJECT MANAGER Primary Care Provider + Nuria Fall NUT THREADER Unavailable Unavaila ble Encounter Details Date Type Department Care Team (Late st Contact Info) Description 07/03/2022 Orders Only External Location [address] [place] [address] Presley Montes De Oca MD 1720 [facility] 302 [place], [place] [id number] Social History Tobacco Use Types Packs/Day Years [...] PM EDT Office Visit [facility] [address], [address] [place] [address] Vincent Braga MD [address] [facility] [address] [place] [address] documented as of this encounter Procedures Procedure [...] on filedocumented in this encounter Care Teams Fifth Grade Teacher Relationship Specialty Start Date End Date Jony Conde MD [address] [place] [address] [address] [place] [address] PCP - General 07/18/22 12/03/22 Enedina Mcguire APRN [address] [place] [address] PCP - General 12/04/22 Lj Tapia APRN [address] [place] [address] Referring Physician Gastroenterology 07/18/22 Nuria Fall LPN [facility] TCM Nurse 07/24/24 08/23/24 documented as of this encounter
--- OUTSIDE RECORDS SUMMARY | 2024-12-16 10:00 | XMS_ITS | Clinical Summary ---
Author Organization Healthcare Address [address] [place] [address] Care Team Providers Care Cash Processing Specialist Name Role Phone Lj Tapia Rohini RICKS Unavailable [phone] Enedina Mcguire APRN Primary Care Provider + [...] Type Department Care Team Description 11/27/2024 Telephone [facility] Nephrology, Bone & Mineral Metabolism [address] [facility], [address] [place] [address] Chelsy Villanueva 09/29/2024 2:20 PM EDT Office Visit [facility] Nephrology, Bone & Mineral Metabolism [address], [address] [place] [address] Yovanny Flores MD NADIYA (acute kidney injury) ([facility]) (Primary Dx); Portal hypertension ([facility]); Secondary esophageal varices with bleeding ([facility]/HCC) 09/29/2024 Travel 09/25/2024 Telephone [facility] Nephrology, Bone & Mineral Metabolism [address], [address] [place] [address] Chelsy Villanueva from Last 3 [...] often do you attend chur ch or nondenominational services? Patient unable to answer 07/14/2024 Do [...] 2 09/29/2024 [facility] - Occupational Stress [...] drink first t deborah in the morning (EYE-DINING CAR STEWARD) to steady your nerves or to get [...] Upcoming Encounters Date Type Department Care Team ([facility] st Contact Info) Description 01/08/2025 3:20 PM EDT Office Visit [facility] [place] [address] [facility], [address] [place] [address] Vincent Braga MD [address] [place] [address] Health Maintenance Due Date Last Done Comments [...] 2 - 13+ 2-dose series) 10/11/2010 09/13/2010 [id number] Vaccine (4 - season) 2024 03/17/2021, 07/25/2020, [...] this topic Medical Devices Implanted Type Area Shine Worker Device Identifier Shelf Expiration Date Model / Serial / Lot Concerto Weston Coil-07/03/2022 Implanted:06/15 by Timmy Brunner MD (Quantity not on file) Coil Abdomen Description:Multiple Coil Co ncerto Pgla Weston Detach COILS implanted on 07/03/2022 by Timmy Brunner MD at [facility]--info can be found in Care Everywhere for [facility] as of 11/15/23 Dona Coil-07/03/2022 Implanted:06/15 by Timmy Brunner MD (Quantity not on file) Coil Abdomen [employer] Description:Coil Emb Dona 3.7/Implanted: Qty: 1 on 07/03/2022 by Timmy Brunner MD at [facility] Plate Plate N/A: Neck Plug Vasc Anton Emb Amplatzer Implanted:06/15 by Timmy Brunner MD (Quantity not on file) Plug Other Vein / / [id number] Description:Plug Vasc Anton Em b Ampltz .027 [id number] - [id number] Implanted: Qty: 1 on 07/03/2022 by Timmy Brunner MD at [facility] Stent Gastro Panc 5fr 5cm - [id number] Implanted:Qty: 1 on 11/20/2023 by Devang Mcghee, ЮЛИЯ at [facility] Pancreas [id number] 08/13/2026 [id number] / / [id number] Procedures Procedure Name Priority Date/Time Associated Diagnosis [...] EST 07/14/2024 4:56 PM EST Laureano Salinas BARGE HAND, DNP LAB BLOOD ORDERA BLES Final Result [facility] [address] [place] [address] * Hepatitis C Antibody (07/14/2024 4:31 PM EST) Hepatitis C Antibody Negative Negative 07/14/2024 5:27 PM EST HEALTHCARE LAB Blood Venous blood specimen / Unknown Venipuncture / Unknown 07/14/2024 4:31 PM EST 07/14/2024 4:54 PM EST Laureano Salinas APRN, [facility] LAB BLOOD ORDERA BLES Final Result [facility]ARE [facility] [address] [place] [address] from Last 3 Months or Most Recently Relevant to Health Maintenance Insurance [facility] Advance Directives * Full Code (Latest Code Status on File) Date Activated Date Inactivated Comments 07/11/2024 11:04 PM 07/23/2024 6:27 PM Question Answer Comments Patient has decision-making capacity? Yes * Full Code Date Activated Date Inactivated Comments 11/14/2023 10:15 PM 11/27/2023 9:08 PM Question Answer Comments Patient has decision-making capacity? Yes Care Teams Cash Processing Specialist Relationship Specialty Start Date End Date Enedina Mcguire APRN [address] [place] [address] PCP - General 12/04/22 Lj Tapia APRN [address] [place] [address] Referring Physician Gastroenterology 07/18/22
--- OUTSIDE RECORDS SUMMARY | 2024-12-16 10:00 | XMS_ITS | Encounter Summary ---
[facility] [address] [place] [address] Care Team Providers Care Receiver Setter Name Role Phone Enedina Mcguire APRN Primary Care Provider + Encounter Details Date Type Department Care Team ([facility] st Contact Info) Description 10/07/2024 Results Follow-Up [facility] INTERNAL MEDICINE [address] [place] [address] Enedina Mcguire APRN [address] [place], [place] [id number] Social History Tobacco Use Types Packs/Day Years Used Date Smoking Tobacco: Former Cigarettes 4 20 Passive Smoke Exposure: Past Smokeless Tobacco: Current Comments:MARIJUANA USE ABOUT 2X PER WEEK - reports no use 08-05-2024 Alcohol Use Standard Drinks/Week Comments Not Currently 0 (1 standard drink = 0.6 oz pure alcohol) 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 [facility] Utilities Answer Date Recorded In the past 12 months has [employer], [employer], oil, or water [employer] threatened to shut off services in your [...] Brief Depression Severity Measure Score 0 10/02/2022 [facility] - Occupational [...] [facility] PA[facility]EMENT [address] [address] Vazquez Christie PA-C [address] [place] [address] documented as of this encounter Visit Diagnoses Not on filedocumented in this encounter Additional Health Concerns Assessment Noted Time PHQ-2 Depression Total Score: 1 12/31/19 24 3:25 PM EDT documented as of this encounter Care Teams Receiver Setter Relationship Specialty Start Date End Date Enedina Mcguire APRN [address] [place] [address] PCP - General Nurse Practitioner 10/27/24 documented as of this encounter
--- OUTSIDE RECORDS SUMMARY | 2024-12-16 10:00 | XMS_ITS | Encounter Summary ---
[facility] [address] [place] [address] Care Team Providers Care Stock Cutter Name Role Phone Enedina Mcguire APRN Primary Care Provider + Reason for Visit * Reason Onset Date Comments CALLBACK 10/27/2024 Encounter Details Date Type Department Care Team ([facility] st Contact Info) Description 10/27/2024 Telephone [facility] INTERNAL MEDICINE [address] [place] [address] Enedina Mcguire APRN [address] [place] [address] CALLBACK Social History Tobacco Use Types Packs/Day Years Used Date Smoking Tobacco: Former Cigarettes 4 20 Passive Smoke Exposure: Past Smokeless Tobacco: Current Comments:MARIJUANA USE ABOUT 2X PER WEEK - reports no use 08-05-2024 Alcohol Use Standard Drinks/Week Comments Not Currently 0 (1 standard drink = 0.6 oz pure alcohol) 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 [facility] Utilities Answer Date Recorded In the past 12 months has [employer], [employer], oil, or water [employer] threatened to shut off services in your [...] 10/02/2022 [facility] - Occupational Stress Questionnaire Answer Date [...] GED or equivalent No 07/09/2024 Preferred Language Vincentian 07/09/2024 PHQ-2 Answer Date Recorded Patient Health [...] Relationship: Emergency Contact Best call back number: [phone] What was the call regarding: WOULD LIKE A CALL BACK FROM FRANCESCA MCGUIRE HERSELF. SHE WOULD LIKE TO DISCUSS HER 'S TRANSPLANT LIST STATUS. THEY HAVE SOME GOOD NEWS TO REPORT. documented in this encounter Plan of Treatment Upcoming Encounters Date Type Department Care Team (Late st Contact Info) Description 01/01/2025 2:15 PM EDT Office Visit [facility] PA[facility] [address] [facility] 330 [place] [address] Vazquez Christie PA-C [address] [place] [phone] documented as of this encounter Visit Diagnoses Not on filedocumented in this encounter Additional Health Concerns Assessment Noted Time PHQ-2 Depression Total Score: 1 12/31/19 24 3:25 PM EDT documented as of this encounter Care Teams Stock Cutter Relationship Specialty Start Date End Date Enedina Mcguire APRN [address] [place] [address] PCP - General Nurse Practitioner 10/27/24 documented as of this encounter
--- OUTSIDE RECORDS SUMMARY | 2024-12-16 10:00 | XMS_ITS | Encounter Summary ---
Author Organization Healthcare Address [address] [place] [address] Care Team Providers Care Parent Trainer Name Role Phone Regina, Lj Nova APRN Unavailable Enedina Mcguire APRN Primary Care Provider + Encounter Details Date Type Department Care Team ([facility] st Contact Info) Description 11/27/2024 Telephone [facility] Mineral Met[facility] [address], [address] [place] [address] Chelsy Villanueva Social History Tobacco [...] often do you attend chur ch or methodist services? Patient unable to answer 07/14/2024 Do you belong to any clubs o r organizations such as alevism groups, unions, fraternal or athletic groups, or [...] Recorded Patient Health Questionnaire-2 Score 2 09/29/2024 [facility] - Occupational Stress Questionnaire Answer Date [...] drink first t deborah in the morning (EYE-TICKER WIRER) to steady your nerves or to [...] now s/p transplant can follow with transplant drafting clerk, please cancel appt. documented in this encounter Plan of Treatment Upcoming Encounters Date Type Department Care Team (Late st Contact Info) Description 01/08/2025 3:20 PM EDT [facility] [place] [address], [address] [place] [phone] Vincent Braga MD [address] [place] [address] documented as of this encounter Visit Diagnoses [...] documented as of this encounter Care Teams Parent Trainer Relationship Specialty Start Date End Date Enedina Mcguire APRN [address] [place] [address] PCP - General 12/04/22 Lj Tapia APRN [address] [place] [address] Referring Physician Gastroenterology 07/18/22 documented as of this encounter
--- OUTSIDE RECORDS SUMMARY | 2024-12-16 10:00 | XMS_ITS | Encounter Summary ---
[facility] Address [address] [place] [address] Care Team Providers Care Paving Supervisor Name Role Phone Enedina Mcguire APRN Primary Care Provider + Encounter Details Date Type Department Care Team ([facility] st Contact Info) Description 10/07/2024 Results Follow-Up [facility] INTERNAL MEDICINE [address] [place] [address] Enedina Mcguire APRN [address] [place], [place] [id number] Social History Tobacco Use Types Packs/Day Years Used Date Smoking Tobacco: Former Cigarettes 4 20 Passive Smoke Exposure: Past Smokeless Tobacco: Current Comments:MARIJUANA USE ABOUT 2X PER WEEK - reports no use 08-05-2024 Alcohol Use Standard Drinks/Week Comments Not Currently 0 (1 standard drink = 0.6 oz pure alcohol) 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 [facility] Utilities Answer Date Recorded In the past 12 months has [employer], oil, or water [employer] threatened to shut off services in [...] Score 0 10/02/2022 [facility]at ional Health - [...] GED or equivalent No 07/09/2024 Preferred Language Surinamese 07/09/2024 PHQ-2 Answer Date Recorded Patient Health [...] 01/01/2025 2:15 PM EDT Office Visit [facility] PAIN [facility]GEMENT [address] [address] Vazquez Christie PA-C [address] [place] [address] documented as of this encounter Visit Diagnoses Not on filedocumented in this encounter Additional Health Concerns Assessment Noted Time PHQ-2 Depression Total Score: 1 12/31/19 24 3:25 PM EDT documented as of this encounter Care Teams Paving Supervisor Relationship Specialty Start Date End Date Enedina Mcguire APRN [address] [place] [address] PCP - General Nurse Practitioner 10/27/24 documented as of this encounter
--- OUTSIDE RECORDS SUMMARY | 2024-12-16 10:00 | XMS_ITS | Encounter Summary ---
[facility] [address] [place] [address] Care Team Providers Care Prekindergarten Teacher Name Role Phone Enedina Mcguire APRN Primary Care Provider + Reason for Visit * Reason Onset Date Comments Med Refill 10/20/2024 Encounter Details Date Type Department Care Team (Late st Contact Info) Description 10/20/2024 Refill [facility] INTERNAL MEDICINE [address] [place] [address] Enedina Mcguire APRN [address] [place] [address] Hepatic encephalopathy; Acquired hypothyroidism; Secondary [...] alcohol) 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 [facility] Utilities Answer Date Recorded In the past 12 months has [employer], gas, oil, or water [employer] threatened to shut off services in your [...] Brief Depression Severity Measure Score 0 10/02/2022 [facility] - Occupational Stress Questionnaire Answer Date Recorded [...] GED or equivalent No 07/09/2024 Preferred Language Belarusian 07/09/2024 PHQ-2 Answer Date Recorded Patient Health [...] Anderson Relationship: Self Best call back number: [phone] Requested Prescriptions: Requested Prescriptions Pending Prescriptions Disp [...] Daily. Pharmacy where request should be sent: [facility] [address] [place], [place] [address] [phone] [facility] [phone] FX Last office visit with prescribing clinician: [...] 2:15 PM EDT Office Visit [facility] PAIN MANAGEMENT [address] [address] Vazquez Christie PA-C [address] [place] [address] documented as of this encounter Visit Diagnoses Diagnosis Hepatic encephalopathy Acquired hypothyroidism Unspecified hypothyroidism Secondary esophageal varices without bleeding documented in this encounter Additional Health Concerns Assessment Noted Time PHQ-2 Depression Total Score: 1 12/31/19 24 3:25 PM EDT documented as of this encounter Care Teams Prekindergarten Teacher Relationship Specialty Start Date End Date Enedina Mcguire APRN [address] [place] [address] PCP - General Nurse Practitioner 09/04/22 10/21/24 documented as of this encounter
--- OUTSIDE RECORDS SUMMARY | 2024-12-16 10:01 | XMS_ITS | Encounter Summary ---
Author Organization [facility] Address [address] [place] [address] Care Team Providers Care Airway Traffic Controller Name Role Phone Enedina Mcguire NP Primary Care Provider + [phone] Maureen Pantoja RN Unavailable Unavail able Source [...] release of HIV test results or diagnoses. [id number] Health Encounter Details Date Type Department Care Team (Late st Contact Info) Description 12/09/2024 Chart Note [facility] Liver Transplant at [address] [place] [phone] Marlene Ro MA Social History Tobacco Use [...] Recorded In the past 12 months has [employer], gas, oil, or water [employer] threatened to shut off services in your [...] of this encounter Progress Notes * Marlene oR MA - 12/09/2024 10:09 AM EDT Images from the original note were not included. documented in this encounter Plan of Treatment Not on file documented as of this encounter Procedures Procedure Name Priority Date/Time Associated Diagnosis Comments URINE PROTEIN, TOTAL, RANDOM (W/O CREATININE) Routine 12/08/2024 10:43 AM EDT HEPATIC FUNCTION PANEL Routine 12/08/2024 10:43 AM EDT TACROLIMUS LEVEL Routine 12/08/2024 10:4 3 AM EDT CREATININE, URINE, RANDOM Routine 12/08/2024 10:43 AM EDT URINALYSIS W/RFL TO MICROSCOPIC Routine 12/08/2024 10:43 AM EDT CBC AND DIFFERENTIAL Routine 12/08/2024 10:43 AM EDT URINE CULTURE Routine 12/08/2024 10:43 AM EDT MAGNESIUM Routine 12/08/2024 10:43 AM EDT RENAL FUNCTION PANEL W/O EGFR Routine 12/08/2024 10:43 AM EDT documented in this encounter Results * Tacrolimus level (12/08/2024 10:43 AM EDT) Tacrolimus Lvl 8.4 6 - 15 ng/mL Whole Blood us Historical Provider LAB BLOOD ORDERABLES Denisse l Result * Urine culture (12/08/2024 10:43 AM EDT) Urine Culture, Comprehensive No growth URINE SPECIMEN / Unknown Result [facility] Provider MICROBIOLOGY - GENERAL OR DERABLES Final Result * (ABNORMAL) Magnesium (12/08/2024 10:43 AM EDT) Pathologist [facility] Magnesium 1.3(A) 1.6 - 2.4 mg/dL Plasma Narrative Resulting Agency Comment [facility] Result [facility] LAB BLOOD ORDERABLES Denisse l Result * (ABNORMAL) Renal Function Panel w/o EGFR (12/08/2024 10:43 AM EDT) Pathologist [facility] Glucose 83 mg/dL BUN 21 4 - 21 mg/dL CO2 28(A) 13 - 22 mmol/L Creatinine 0.90 0.6 - 1.3 mg/dL Potassium 3.9 3.4 - 5.3 mmol/L Sodium 140 137 - 147 mmol/L Chloride 105 99 - 108 mmol/L Phosphorus 4.0 2.5 - 4.9 mg/dL Calcium 9.4 8.7 - 10.7 mg/dL EGFR 93 mg/dL Albumin 3.9 3.5 - 5.0 g/dL Blood Narrative Resulting Agency Comment [facility] Result [facility] LAB BLOOD ORDERABLES Denisse l Result * Creatinine, urine, random (12/08/2024 10:43 AM EDT) [facility] Creatinine, Urine 65 Urine Narrative Resulting Agency Comment [facility] Result [facility] Provider URINE ORDERABLES Final Re sult * Urinalysis w/Rfl to Microscopic (12/08/2024 10:43 AM EDT) Pathologist [facility] Glucose, UA Negative Negative Ketones, UA Negative Negative Blood, UA Negative Negative Bilirubin, UA Negative Negative Urobilinogen, UA Normal Normal Protein, UA Negative Negative Nitrite, UA Negative Negative Leukocyte Esterase, UA Negative Negative pH, UA 6.0 4.5 - 8.0 Specific Muddy, UA 1.010 1.005 - 1.030 Clarity, UA Clear Clear Color, UA Yellow Light Yellow, Yellow Urine Narrative Resulting Agency Comment [facility] Result [facility] Provider URINE ORDERABLES Final Re sult * Urine Protein, Tot, Random (w/o Creat) (12/08/2024 10:43 AM EDT) Total Protein, Ur 11.0 Urine Narrative Resulting Agency Comment [facility] Result [facility] Provider URINE ORDERABLES Final Re sult * (ABNORMAL) Hepatic Function Panel (12/08/2024 10:43 AM EDT) Pathologist [facility] Bilirubin, Direct 0.1 Bilirubin, Indirect 0.2 Alkaline Phosphatase 80 U/L ALT 14 U/L AST 16 U/L Total Bilirubin 0.3 0.1 - 1.4 mg/dL Total Protein 5.6(A) 6.4 - 8.2 g/dL Plasma Narrative Resulting Agency Comment [facility] Result [facility] Provider LAB BLOOD ORDERABLES Denisse l Result * (ABNORMAL) CBC and differential (12/08/2024 10:43 AM EDT) Hemoglobin 10.3(A) 13.5 - 17.5 g/dL Hematocrit 31.2(A) 41 - 53 % RDW 16.8(A) 11.5 - 14.5 % Lymphocytes Absolute 1.0 / L Monocytes Absolute 0.4 / L Eosinophils Absolute 0.0 / L Basophils Absolute 0.0 / L Neutrophils Relative 72.2 46 - 78 % Lymphocytes Relative 18.9 18 - 52 % Monocytes Relative 7.1 3 - 10 % Eosinophils Relative 0.4 0 - 6 % Basophils Relative 0.8 0 - 3 % Neutrophils Absolute 3.7 / L MCH 31.0 26.0 - 34.0 pg MCHC 33.0 30 - 37 g/dL MCV 94.0 82.0 - 108.0 fL Platelets 147 K/ L RBC 3.32(A) 4.50 - 5.90 10^6/ L WBC 5.1 10^3/mL Blood Narrative Resulting Agency Comment [facility] us Historical Provider LAB BLOOD ORDERABLES Denisse l Result documented in this encounter Visit Diagnoses Not on filedocumented in this encounter Additional Health Concerns Infection Onset Date Last Indicated Resolved 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
--- OUTSIDE RECORDS SUMMARY | 2024-12-16 10:01 | XMS_ITS | Encounter Summary ---
Author Organization [facility] Address [address] [place] [address] Care Team Providers Care Topographical Surveyor Name Role Phone Enedina Mcguire NP Primary Care Provider + [phone] Maureen Pantoja RN Unavailable Unavail able Source [...] release of HIV test results or diagnoses. [id number] Reason for Visit * Reason Comments Transplant Review Encounter Details Date Type Department Care Team (Late st Contact Info) Description 10/27/2024 Pharmacy Services [facility] [address] [place] [phone] Opal Cox, TaniD Social History Tobacco [...] Recorded In the past 12 months has [employer], gas, oil, or water [employer] threatened to shut off services in [...] of Care Patient's prescriptions were sent to [facility] Dis[facility] for a Transplant benefits review. Julien Anderson received a Kidney/Liver Transplant on 10/26-10/27/24 at [facility]. The patient's discharge medications were sent to [facility] Discharge [facility] for anticipated discharge of 11/03/24. The patient has a [employer] commercial insurance plan to cover prescriptions. Currently, the patient's co-pay for all medications is listed below: Acetaminophen 325 mg - $4 Alcohol swabs - $0 Aspiring 81mg - $4 Atovaquone 750 mg/5 ml - $0 Dexcom G7 Machine Steak Tenderizer- $0 Dexcom G7 Sensor- $0 Eliquis 2.5mg [...] $0 Specialty Pharmacy Requirements: Name of Pharmacy: [facility] Specialty Phone Number: Prescriptions Transferred at Discharge Date: The patient could have potential eligibility for the pharmaceutical company medication assistance program for each of these medications. Mr Anderson's total cost of discharge prescriptions is currently $16. This total is subject to changewith the addition or change in any of the prescriptions sent to [facility] Discharge Pharmacy. A call was placed to Mr Anderson's room to discuss total cost amount from above and encourage patientto set up profile with [facility] Specialty. [facility] Specialty Pharm[facility] confirmed delivery of [...] The patient has been referred to the [facility] Transplant Team. The patient should visit Medication Access for assistance if problems arise with the prescriptions. If questions arise regarding discharge medications, please call [phone]. Opal Cox Pharm D Transitions of Care [phone] documented in this encounter Plan of Treatment [...] documented as of this encounter Care Teams Topographical Surveyor Relationship Specialty Start Date End Date Enedina Mcguire NP [address] [place] [address] PCP - General Internal Medicine 10/05/24 Maureen Pantoja, ЮЛИЯ Txp Post Coordinator Transplant Hepatology 10/28/24 documented as of this encounter
--- OUTSIDE RECORDS SUMMARY | 2024-12-16 10:01 | XMS_ITS | Encounter Summary ---
Author Organization [facility] Address [address] [place] [address] Care Team Providers Care Oil Laboratory Analyst Name Role Phone Enedina Mcguire NP Primary Care Provider + [phone] Maureen Pantoja RN Unavailable Unavail able Source [...] release of HIV test results or diagnoses. [id number] Health Encounter Details Date Type Department Care Team (Late st Contact Info) Description 11/04/2024 Social Work [facility] Liver Transplant at [address] [place] [phone] Kaylin Willard MSW Social History Tobacco Use [...] Recorded In the past 12 months has [employer], gas, oil, or water [employer] threatened to shut off services in your [...] Patient reports he completed CD treatment with [facility] and was referred to [facility] for aftercare and will be attending 1 week virtual individual counseling sessions.He reports he was due to start this while hospitalized for the transplant and plans to reschedule his next session. Hope Stone given. SW discussed process for writing to Donor family and confirmed Pt/family have [facility] brochure. No further SW needs identified. 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
--- OUTSIDE RECORDS SUMMARY | 2024-12-16 10:01 | XMS_ITS | Encounter Summary ---
Author Organization [facility] Address [address] [place] [address] Care Team Providers Care Logistics Solution Manager Name Role Phone Enedina Mcguire NP Primary Care Provider + [phone] Maureen Pantoja RN Unavailable Unavail able Source [...] release of HIV test results or diagnoses. [id number] Reason for Visit * Reason Comments Results Encounter Details Date Type Department Care Team (Late st Contact Info) Description 11/04/2024 Telephone [facility] Liver Transplant at [address] [address] Maureen Pantoja, RN Results Social [...] In the past 12 months has [employer], gas, oil, or water [employer] threatened to shut off services in your [...] as of this encounter Care Teams Logistics Solution Manager Relationship Specialty Start Date End Date Enedina Mcguire NP [address] [place] [address] PCP - General Internal Medicine 10/05/24 Maureen Pantoja, ЮЛИЯ Txp Post Coordinator Transplant Hepatology 10/28/24 documented as of this encounter
--- OUTSIDE RECORDS SUMMARY | 2024-12-16 10:01 | XMS_ITS | Encounter Summary ---
Author Organization [facility] Address [address] [place] [address] Care Team Providers Care Pipeline Controller Name Role Phone Enedina Mcguire NP Primary Care Provider [phone] Source Comments This information has been disclosed [...] release of HIV test results or diagnoses. [id number] Health Encounter Details Date Type Department Care Team (Late st Contact Info) Description 10/27/2024 Chart Note [facility] Kidney Transplant at [address] [place] [phone] Karen Rosen, RN I have verified that the donor serologies entered in [facility] match the donor Social History [...] Recorded In the past 12 months has [employer], gas, oil, or water [employer] threatened to shut off services in your [...] documented as of this encounter Care Teams Pipeline Controller Relationship Specialty Start Date End Date Enedina Mcguire NP [address] [place] [address] PCP - General Internal Medicine 10/05/24 documented as of this encounter
--- OUTSIDE RECORDS SUMMARY | 2024-12-16 10:01 | XMS_ITS | Encounter Summary ---
Author Organization [facility] Address [address] [place] [address] Care Team Providers Care Mine Wedge Sawyer Name Role Phone Enedina Mcguire APRN Primary [...] 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 [facility] Utilities Answer Date Recorded In the past 12 months has [employer], gas, oil, or water [employer] threatened to shut off services in [...] Brief Depression Severity Measure Score 0 10/02/2022 [facility] [place] of Occupat ional Health - Occupational Stress [...] GED or equivalent No 07/09/2024 Preferred Language Amharic 07/09/2024 PHQ-2 Answer Date Recorded Patient Health [...] 2:15 PM EDT Office Visit [facility] [address] [address] Vazquez Christie PA-C [address] [place] [address] documented as of this encounter Visit Diagnoses Not on filedocumented in this encounter Additional Health Concerns Assessment Noted Time PHQ-2 Depression Total Score: 1 12/31/19 24 3:25 PM EDT documented as of this encounter Care Teams Mine Wedge Sawyer Relationship Specialty Start Date End Date Enedina Mcguire APRN [address] [place] [address] PCP - General Nurse Practitioner 10/27/24 documented as of this encounter
--- OUTSIDE RECORDS SUMMARY | 2024-12-16 10:01 | XMS_ITS | Encounter Summary ---
Author Organization [facility] Address [address] [place] [address] Care Team Providers Care Miniature Set Builder Name Role Phone Enedina Mcguire NP Primary Care Provider + [phone] Maureen Pantoja RN Unavailable Unavail able Source [...] release of HIV test results or diagnoses. [id number] Health Encounter Details Date Type Department Care Team (Late st Contact Info) Description 11/04/2024 Results Follow-Up [facility] Liver Transplant at [address] [address] Maureen Pantoja, ЮЛИЯ Tacrolimus level, Hepatic Function [...] Recorded In the past 12 months has [employer], gas, oil, or water [employer] threatened to shut off services in [...] documented as of this encounter Care Teams Miniature Set Builder Relationship Specialty Start Date End Date Enedina Mcguire NP [address] [place] [address] PCP - General Internal Medicine 10/05/24 Maureen Pantoja, RN Txp Post Coordinator Transplant Hepatology 10/28/24 documented as of this encounter
--- OUTSIDE RECORDS SUMMARY | 2024-12-16 10:01 | XMS_ITS | Encounter Summary ---
Author Organization [facility] Address [address] [place] [address] Care Team Providers Care Associate Sales Name Role Phone Enedina Mcgurie NP Primary Care Provider + [phone] Maureen Pantoja RN Unavailable Unavail able Source [...] release of HIV test results or diagnoses. [id number] Health Encounter Details Date Type Department Care Team (Late st Contact Info) Description 11/04/2024 Nutrition [facility] Kidney Transplant at [address] [place] [phone] Ben Weiss, DMITRY Social History Tobacco Use [...] Recorded In the past 12 months has [employer], gas, oil, or water [employer] threatened to shut off services in [...] day. blood-glucose meter (TRUE METRIX GLUCOSE METER) [facility] Use to test blood sugar up to [...] = 12 units lancets (ACCU-CHEK SOFTCLIX LANCETS) [facility] Use to test blood sugar up to [...] times a day. naloxone (NARCAN) 4 mg/actuation Murray Apply 1 spray in one nostril if [...] as of this encounter Care Teams Associate Sales Relationship Specialty Start Date End Date Enedina Mcguire NP [address] [place] [address] PCP - General Internal Medicine 10/05/24 Maureen Pantoja, RN Txp Post Coordinator Transplant Hepatology 10/28/24 documented as of this encounter
--- OUTSIDE RECORDS SUMMARY | 2024-12-16 10:01 | XMS_ITS | Encounter Summary ---
Author Organization [facility] Address [address] [place] [id number] Care Team Providers Care Dining Host Name Role Phone Enedina Mcguire NP Primary Care Provider + [phone] Maureen Pantoja RN Unavailable Unavail able Source [...] release of HIV test results or diagnoses. [id number] Reason for Referral * Diagnostic Lab (Routine) - New Request Specialty Diagnoses / Procedures Referred By Shane hernadez Referred To Contact Diagnoses Kidney transplant recipient Liver transplant recipient (CMS-HCC) Viral disease exposure Immunosuppression ([facility]-HCC) Procedures BK Virus Quantitative by PCR, Blood [facility] Liver Transplant at [address] [address] Phone: tel: fax: Referral ID Status Reason Start Date Expiration Date V isits Requested Visits Authorized [id number] New Request 12/09/2024 06/07/2025 1 1 * Diagnostic Lab (Routine) - New Request Specialty Diagnoses / Procedures Referred By Contac t Referred To Contact Diagnoses Kidney transplant recipient Liver transplant recipient (CMS-HCC) Viral disease exposure Immunosuppression (CMS-HCC) Procedures BK Virus Quantitative by PCR, Blood [facility] Liver Transplant at [address] [address] Phone: tel: fax: Referral ID Status Reason Start Date Expiration Date V isits Requested Visits Authorized [id number] New Request 12/09/2024 06/07/2025 1 1 * Diagnostic Lab (Routine) - New Request Specialty Diagnoses / Procedures Referred By Contac t Referred To Contact Diagnoses Kidney transplant recipient Liver transplant recipient (CMS-HCC) Viral disease exposure Immunosuppression (CMS-HCC) Procedures BK Virus Quantitative by PCR, Blood [facility] Liver Transplant at [address] [address] Phone: tel: fax: Referral ID Status Reason Start Date Expiration Date V isits Requested Visits Authorized [id number] New Request 12/09/2024 06/07/2025 1 1 * Diagnostic Lab (Routine) - New Request Specialty Diagnoses / Procedures Referred By Contac t Referred To Contact Diagnoses Kidney transplant recipient Liver transplant recipient (CMS-HCC) Viral disease exposure Immunosuppression (CMS-HCC) Procedures BK Virus Quantitative by PCR, Blood [facility] Liver Transplant at [address] [address] Phone: tel: fax: Referral ID Status Reason Start Date Expiration Date V isits Requested Visits Authorized [id number] New Request 12/09/2024 06/07/2025 1 1 * Diagnostic Lab (Routine) - New Request Specialty Diagnoses / Procedures Referred By Contac t Referred To Contact Diagnoses Kidney transplant recipient Liver transplant recipient (CMS-HCC) Viral disease exposure Immunosuppression (CMS-HCC) Procedures BK Virus Quantitative by PCR, Blood [facility] Liver Transplant at [address] [address] Phone: tel: fax: Referral ID Status Reason Start Date Expiration Date V isits Requested Visits Authorized [id number] New Request 12/09/2024 06/07/2025 1 1 * Diagnostic Lab (Routine) - New Request Specialty Diagnoses / Procedures Referred By Shane hernadez Referred To Contact Diagnoses Kidney transplant recipient Liver transplant recipient (CMS-HCC) Viral disease exposure Immunosuppression ([facility]-HCC) Procedures BK Virus Quantitative by PCR, Blood [facility] Liver Transplant at [address] [address] Phone: tel: fax: Referral ID Status Reason Start Date Expiration Date V isits Requested Visits Authorized [id number] New Request 12/09/2024 06/07/2025 1 1 Encounter Details Date Type Department Care Team (Late st Contact Info) Description 12/09/2024 Orders Only [facility] Liver Transplant at [address] [address] Maureen Pantoja RN Kidney transplant recipient (Primary Dx); Liver transplant recipient (CMS-HCC); Viral disease exposure; Immunosuppression ([facility]-HCC) Social History Tobacco Use Types Packs/Day Years Used Date Smoking Tobacco: Former Cigarettes Smokeless Tobacco: Current Alcohol Use Standard Drinks/Week Comments Yes 0 (1 standard drink = 0.6 oz pure alcohol) History of alcohol abuse, reports no use in 3 week- typically endorses use as 4 glasses of wine a days Utilities Answer Date Recorded In the past 12 months has [employer], oil, or water company threatened to shut [...] Type Priority Associated Diagnoses Orde r Schedule BK Virus Quantitative by PCR, Blood Lab Routine Kidney transplant recipient Liver transplant recipient (CMS-HCC) Viral disease exposure Immunosuppression (CMS-HCC) Expected: 12/16/2024 (Approximate), Expires: 06/11/2026 BK Virus Quantitative by PCR, Blood Lab Routine Kidney transplant recipient Liver transplant recipient (CMS-HCC) Viral disease exposure Immunosuppression (CMS-HCC) Expected: 12/27/2024 (Approximate), Expires: 06/11/2026 BK Virus Quantitative by PCR, Blood Lab Routine Kidney transplant recipient Liver transplant recipient (CMS-HCC) Viral disease exposure Immunosuppression (CMS-HCC) Expected: 01/27/2025 (Approximate), Expires: 06/11/2026 BK Virus Quantitative by PCR, Blood Lab Routine Kidney transplant recipient Liver transplant recipient (CMS-HCC) Viral disease exposure Immunosuppression (CMS-HCC) Expected: 04/28/2025 (Approximate), Expires: 06/11/2026 BK Virus Quantitative by PCR, Blood Lab Routine Kidney transplant recipient Liver transplant recipient (CMS-HCC) Viral disease exposure Immunosuppression (CMS-HCC) Expected: 07/27/2025 (Approximate), Expires: 06/11/2026 BK Virus Quantitative by PCR, Blood Lab Routine Kidney transplant recipient Liver transplant recipient (CMS-HCC) Viral disease exposure Immunosuppression (CMS-HCC) Expected: 10/27/2025 (Approximate), Expires: 06/11/2026 documented as of this encounter Visit Diagnoses Diagnosis Kidney transplant recipient- Primary Liver transplant recipient (CMS-HCC) Viral disease exposure Contact with or exposure to other viral diseases Immunosuppression (CMS-HCC) documented in this encounter Additional Health Concerns Infection Onset Date Last Indicated Resolved Time 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
--- OUTSIDE RECORDS SUMMARY | 2024-12-16 10:01 | XMS_ITS | Encounter Summary ---
Author Organization [facility] Address [address] [place] [address] Care Team Providers Care Ice Cream Vendor Name Role Phone Enedina Mcguire NP Primary Care Provider + [phone] Maureen Pantoja RN Unavailable Unavail able Source [...] release of HIV test results or diagnoses. [id number] Health Encounter Details Date Type Department Care Team (Late st Contact Info) Description 10/27/2024 Chart Note [facility] Liver Transplant at [address] [place] [phone] Crista Power, RN I introduced myself as inpatient liver/kidney lactation coordinator, Social History Tobacco Use Types Packs/Day Years Used Date Smoking Tobacco: Former Cigarettes Smokeless Tobacco: Current Alcohol Use Standard Drinks/Week Comments Yes 0 (1 standard drink = 0.6 oz pure alcohol) History of alcohol abuse, reports no use in 3 week- typically endorses use as 4 glasses of wine a days Utilities Answer Date Recorded In the past 12 months has [employer], gas, oil, or water [employer] threatened to shut off services in your [...] EDT I introduced myself as inpatient liver/kidney lactation coordinator, explained role and provided my contact [...] documented as of this encounter Care Teams Ice Cream Vendor Relationship Specialty Start Date End Date Enedina Mcguire NP [address] [place] [address] PCP - General Internal Medicine 10/05/24 Maureen Pantoja, ЮЛИЯ Txp Post Coordinator Transplant Hepatology 10/28/24 documented as of this encounter
--- OUTSIDE RECORDS SUMMARY | 2024-12-16 10:01 | XMS_ITS | Encounter Summary ---
Author Organization [facility] Address [facility] [place] [address] Care Team Providers Care Utilities Equipment Repairer Name Role Phone Enedina Mcguire NP Primary Care Provider + [phone] Maureen Pantoja RN Unavailable Unavail able Source [...] release of HIV test results or diagnoses. [id number] Health Encounter Details Date Type Department Care Team (Late st Contact Info) Description 10/31/2024 Orders Only [facility] Liver Transplant at [facility] [address] [facility] [address] [place] [address] Harvey Domínguez III, MD [address] [place] [address] [address] [facility] [place] [address] Liver replaced by transplant ([facility]) (Primary Dx); Immunosuppressive management encounter following liver transplant ([facility]) Social History Tobacco Use Types Packs/Day [...] past 12 months has th e electric, [employer], [employer], or water [employer] threatened to shut off services in [...] level Lab Routine Liver replaced by transplant ([facility]) Immunosuppressive management encounter following liver transplant ([facility]) 70 Occurrences starting 11/03/2024 until 10/31/2025, 3 completed Hepatic Function Panel Lab Routine Liver replaced by transplant ([facility]) Immunosuppressive management encounter following liver transplant ([facility]) 70 Occurrences starting 11/03/2024 until 10/31/2025, 3 completed Renal Function Panel w/EGFR Lab Routine Liver replaced by transplant ([facility]) Immunosuppressive management encounter following liver transplant ([facility]) 70 Occurrences starting 11/03/2024 until 10/31/2025, 2 completed CBC Lab Routine Liver replaced by transplant ([facility]) Immunosuppressive management encounter following liver transplant ([facility]) 70 Occurrences starting 11/03/2024 until 10/31/2025, 2 completed Differential Lab Routine Liver replaced by transplant ([facility]) Immunosuppressive management encounter following liver transplant ([facility]) 70 Occurrences starting 11/03/2024 until 10/31/2025, 3 [...] - 8,640 /uL 11/25/2024 10:25 AM EDT [facility] Lymphocytes Absolute 1,555 570 - 4,860 /uL 11/25/2024 10:25 AM EDT [facility] Monocytes Absolute 510 0 - 1,296 /uL 11/25/2024 10:25 AM EDT [facility] Eosinophils Absolute 32 0 - 864 /uL 11/25/2024 10:25 AM EDT [facility] Basophils Absolute 73 0 - 108 /uL 11/25/2024 10:25 AM EDT [facility] Whole Blood 11/25/2024 8:42 AM EDT 11/25/2024 9:44 AM EDT Narrative [facility] - 11/25/2024 10:25 AM EDT Standing orders to be drawn: Every Sunday and before 9am and prior to patient taking morning medications. Liver Transplant Fax results to [phone] Call Critical results to [phone] us Harvey Domínguez III, MD LAB BLOOD ORDERABLE S Final Result [facility] [address] [place] [address], [facility] * (ABNORMAL) Hepatic Function Panel (11/25/2024 8:42 AM EDT) Total Bilirubin 0.7 0.0 - 1.5 mg/dL 11/25/2024 10:20 AM EDT [facility] Bilirubin, Direct 0.20 0.00 - 0.40 mg/dL 11/25/2024 10:20 AM EDT [facility] AST 9(L) 13 - 39 U/L 11/25/2024 10:20 AM EDT [facility] ALT 22 7 - 52 U/L 11/25/2024 10:20 AM EDT [facility] Alkaline Phosphatase 198(H) 36 - 125 U/L 11/25/2024 10:20 AM EDT [facility] Total Protein 7.0 6.4 - 8.9 g/dL 11/25/2024 10:20 AM EDT [facility] Albumin 4.5 3.5 - 5.7 g/dL 11/25/2024 10:20 AM EDT [facility] Bilirubin, Indirect 0.50 0.00 - 1.10 mg/dL 11/25/2024 10:20 AM EDT [facility] Plasma 11/25/2024 8:42 AM EDT 11/25/2024 9:47 AM EDT [facility] - 11/25/2024 10:20 AM EDT Standing orders to be drawn: Every Sunday and before 9am and prior to patient taking morning medications. Liver Transplant Fax results to [phone] Call Critical results to [phone] DO NOT REPLACE RENAL PANEL or HEPATIC FUNCTION PANEL w/ CMP, BMP or HEPATIC PROFILE Harvey Domínguez III, MD LAB BLOOD ORDERABLE S Final Result [facility] [address] * Tacrolimus level (11/25/2024 8:42 AM EDT) Tacrolimus (LC-MS) 11.6 3.0 - 15.0 ng/mL 11/25/2024 1:14 PM EDT [facility] Comment:Performed via liquid chromatography [...] 8:42 AM EDT 11/25/2024 9:44 AM EDT [facility] - 11/25/2024 1:14 PM EDT Standing orders to be drawn: Every Sunday and before 9am and prior to patient taking morning medications. Liver Transplant Fax results to [phone] Call Critical results to [phone] us Harvey Domínguez III, MD LAB BLOOD ORDERABLE S Final Result [facility] [address] [facility] [place] [address], [facility] * (ABNORMAL) Differential (11/11/2024 9:13 AM EDT) Neutrophils Relative 69.3 40.0 - 80.0 % 11/11/2024 10:31 AM EDT [facility] Lymphocytes Relative 17.6 15.0 - 45.0 % 11/11/2024 10:31 AM EDT [facility] Monocytes Relative 8.5 0.0 - 12.0 % 11/11/2024 10:31 AM EDT [facility] Eosinophils Relative 2.0 0.0 - 8.0 % 11/11/2024 10:31 AM EDT [facility] Basophils Relative 2.6(H) 0.0 - 1.0 % 11/11/2024 10:31 AM EDT [facility] nRBC 0 0 - 0 /100 WBC 11/11/2024 10:31 AM EDT [facility] Neutrophils Absolute 4,920 1,520 - 8,640 /uL 11/11/2024 10:31 AM EDT [facility] Lymphocytes Absolute 1,250 570 - 4,860 /uL 11/11/2024 10:31 AM EDT [facility] Monocytes Absolute 604 0 - 1,296 /uL 11/11/2024 10:31 AM EDT [facility] Eosinophils Absolute 142 0 - 864 /uL 11/11/2024 10:31 AM EDT [facility] Basophils Absolute 185(H) 0 - 108 /uL 11/11/2024 10:31 AM EDT [facility] Whole Blood 11/11/2024 9:13 AM EDT 11/11/2024 10:19 AM EDT Narrative [facility] - 11/11/2024 10:31 AM EDT Standing orders to be drawn: Every Sunday and before 9am and prior to patient taking morning medications. Liver Transplant Fax results to [phone] Call Critical results to [phone] us Harvey Domínguez III, MD LAB BLOOD ORDERABLE S Final Result [facility] [address] [facility]. [place] [address], [facility] * (ABNORMAL) CBC (11/11/2024 9:13 AM EDT) WBC 7.1 3.8 - 10.8 10E3/uL 11/11/2024 10:31 AM EDT [facility] RBC 3.42(L) 4.20 - 5.80 10E6/uL 11/11/2024 10:31 AM EDT [facility] Hemoglobin 10.6(L) 13.2 - 17.1 g/dL 11/11/2024 10:31 AM EDT [facility] Hematocrit 31.3(L) 38.5 - 50.0 % 11/11/2024 10:31 AM EDT [facility] MCV 91.5 80.0 - 100.0 fL 11/11/2024 10:31 AM EDT [facility] MCH 31.0 27.0 - 33.0 pg 11/11/2024 10:31 AM EDT [facility] MCHC 33.8 32.0 - 36.0 g/dL 11/11/2024 10:31 AM EDT [facility] RDW 20.5(H) 11.0 - 15.0 % 11/11/2024 10:31 AM EDT [facility] Platelets 308 140 - 400 10E3/uL 11/11/2024 10:31 AM EDT [facility] MPV 6.1(L) 7.5 - 11.5 fL 11/11/2024 10:31 AM EDT [facility] Whole Blood 11/11/2024 9:13 AM EDT 11/11/2024 10:19 AM EDT Narrative [facility] - 11/11/2024 10:31 AM EDT Standing orders to be drawn: Every Sunday and before 9am and prior to patient taking morning medications. Liver Transplant Fax results to [phone] Call Critical results to [phone] us Harvey Domínguez III, MD LAB BLOOD ORDERABLE S Final Result [facility] [address] [place] [address], [facility] * (ABNORMAL) Renal Function Panel w/EGFR (11/11/2024 9:13 AM EDT) Sodium 141 133 - 146 mmol/L 11/11/2024 10:51 AM EDT [facility] Potassium 4.6 3.5 - 5.3 mmol/L 11/11/2024 10:51 AM EDT [facility] Chloride 108 98 - 110 mmol/L 11/11/2024 10:51 AM EDT [facility] CO2 24 21 - 33 mmol/L 11/11/2024 10:51 AM EDT [facility] Anion Gap 9 3 - 16 mmol/L 11/11/2024 10:51 AM EDT [facility] BUN 27(H) 7 - 25 mg/dL 11/11/2024 10:51 AM EDT [facility] Creatinine 1.14 0.60 - 1.30 mg/dL 11/11/2024 10:51 AM EDT [facility] Glucose 97 70 - 100 mg/dL 11/11/2024 10:51 AM EDT [facility] Calcium 8.6 8.6 - 10.3 mg/dL 11/11/2024 10:51 AM EDT [facility] Phosphorus 4.4 2.1 - 4.7 mg/dL 11/11/2024 10:51 AM EDT [facility] Albumin 3.8 3.5 - 5.7 g/dL 11/11/2024 10:51 AM EDT [facility] Osmolality, Calculated 297 278 - 305 mOsm/kg 11/11/2024 10:51 AM EDT [facility] EGFR 83 11/11/2024 10:51 AM EDT [facility] Comment:As of 2021, the [...] 9:13 AM EDT 11/11/2024 10:19 AM EDT [facility] - 11/11/2024 10:51 AM EDT Standing orders to be drawn: Every Sunday and before 9am and prior to patient taking morning medications. Liver Transplant Fax results to [phone] Call Critical results to [phone] DO NOT REPLACE RENAL PANEL or HEPATIC FUNCTION PANEL w/ CMP, BMP or HEPATIC PROFILE us Harvey Domínguez III, MD LAB BLOOD ORDERABLE S Final Result [facility] [address] [place] [address], [facility] * (ABNORMAL) Hepatic Function Panel (11/11/2024 9:13 AM EDT) Total Bilirubin 1.0 0.0 - 1.5 mg/dL 11/11/2024 10:51 AM EDT [facility] Bilirubin, Direct 0.39 0.00 - 0.40 mg/dL 11/11/2024 10:51 AM EDT [facility] AST 15 13 - 39 U/L 11/11/2024 10:51 AM EDT [facility] ALT 26 7 - 52 U/L 11/11/2024 10:51 AM EDT [facility] Alkaline Phosphatase 125 36 - 125 U/L 11/11/2024 10:51 AM EDT [facility] Total Protein 5.9(L) 6.4 - 8.9 g/dL 11/11/2024 10:51 AM EDT [facility] Albumin 3.8 3.5 - 5.7 g/dL 11/11/2024 10:51 AM EDT [facility] Bilirubin, Indirect 0.61 0.00 - 1.10 mg/dL 11/11/2024 10:51 AM EDT [facility] Plasma 11/11/2024 9:13 AM EDT 11/11/2024 10:19 AM EDT [facility] - 11/11/2024 10:51 AM EDT Standing orders to be drawn: Every Sunday and before 9am and prior to patient taking morning medications. Liver Transplant Fax results to [phone] Call Critical results to [phone] DO NOT REPLACE RENAL PANEL or HEPATIC FUNCTION PANEL w/ CMP, BMP or HEPATIC PROFILE Harvey Domínguez III, MD LAB BLOOD ORDERABLE S Final Result [facility] [address] * Tacrolimus level (11/11/2024 9:13 AM EDT) Tacrolimus (LC-MS) 10.4 3.0 - 15.0 ng/mL 11/11/2024 1:22 PM EDT [facility] Comment:Performed via liquid chromatography [...] EDT 11/11/2024 10:19 AM EDT Narrative [facility] - 11/11/2024 1:22 PM EDT Standing orders to be drawn: Every Sunday and before 9am and prior to patient taking morning medications. Liver Transplant Fax results to [phone] Call Critical results to [phone] us Harvey Domínguez III, MD LAB BLOOD ORDERABLE S Final Result [facility] [address] [place] [address], [facility] * (ABNORMAL) Differential (11/04/2024 8:46 AM EDT) Differential Comments See Note 11/05/2024 12:05 AM EDT [facility] Comment: _Platelets Appear Decreased _Platelet Morphology Normal Myelocytes Relative 3.0(H) 0.0 - 0.0 % 11/05/2024 12:05 AM EDT [facility] Neutrophils Relative 73.0 40.0 - 80.0 % 11/05/2024 12:05 AM EDT [facility] Lymphocytes Relative 17.0 15.0 - 45.0 % 11/05/2024 12:05 AM EDT [facility] Monocytes Relative 6.0 0.0 - 12.0 % 11/05/2024 12:05 AM EDT [facility] Eosinophils Relative 1.0 0.0 - 8.0 % 11/05/2024 12:05 AM EDT [facility] Basophils Relative 0.0 0.0 - 1.0 % 11/05/2024 12:05 AM EDT [facility] Neutrophils Absolute 5,256 1,520 - 8,640 /uL 11/05/2024 12:05 AM EDT [facility] Myelocytes Absolute 216(H) 0 - 0 /uL 11/05/2024 12:05 AM EDT [facility] Lymphocytes Absolute 1,224 570 - 4,860 /uL 11/05/2024 12:05 AM EDT [facility] Monocytes Absolute 432 0 - 1,296 /uL 11/05/2024 12:05 AM EDT [facility] Eosinophils Absolute 72 0 - 864 /uL 11/05/2024 12:05 AM EDT [facility] Basophils Absolute 0 0 - 108 /uL 11/05/2024 12:05 AM EDT [facility] PLT Morphology Platelet morphology appears normal 11/05/2024 12:05 AM EDT [facility] Whole Blood 11/04/2024 8:46 AM EDT 11/04/2024 11:01 PM EDT Narrative [facility] - 11/05/2024 12:05 AM EDT Standing orders to be drawn: Every Sunday and before 9am and prior to patient taking morning medications. Liver Transplant Fax results to [phone] Call Critical results to [phone] Manual WBC differential performed per review criteria approved by the medical sales. us Harvey Domínguez III, MD LAB BLOOD ORDERABLE S Final Result [facility] [address] [facility] [place] [address], [facility] * (ABNORMAL) CBC (11/04/2024 8:46 AM EDT) WBC 7.2 3.8 - 10.8 10E3/uL 11/05/2024 12:05 AM EDT [facility] RBC 3.17(L) 4.20 - 5.80 10E6/uL 11/05/2024 12:05 AM EDT [facility] Hemoglobin 9.7(L) 13.2 - 17.1 g/dL 11/05/2024 12:05 AM EDT [facility] Hematocrit 28.6(L) 38.5 - 50.0 % 11/05/2024 12:05 AM EDT [facility] MCV 90.2 80.0 - 100.0 fL 11/05/2024 12:05 AM EDT [facility] MCH 30.5 27.0 - 33.0 pg 11/05/2024 12:05 AM EDT [facility] MCHC 33.8 32.0 - 36.0 g/dL 11/05/2024 12:05 AM EDT [facility] RDW 17.9(H) 11.0 - 15.0 % 11/05/2024 12:05 AM EDT [facility] Platelets 137(L) 140 - 400 10E3/uL 11/05/2024 12:05 AM EDT [facility] Platelet Estimate Decreased 11/05/2024 12:05 AM EDT [facility] MPV 8.4 7.5 - 11.5 fL 11/05/2024 12:05 AM EDT [facility] Whole Blood 11/04/2024 8:46 AM EDT 11/04/2024 11:01 PM EDT Narrative [facility] - 11/05/2024 12:05 AM EDT Standing orders to be drawn: Every Sunday and before 9am and prior to patient taking morning medications. Liver Transplant Fax results to [phone] Call Critical results to [phone] Peripheral blood smear was scanned per review criteria approved by the laboratory medical sales. us Harvey Domínguez III, MD LAB BLOOD ORDERABLE S Final Result [facility] [address] * (ABNORMAL) Renal Function Panel w/EGFR (11/04/2024 8:46 AM EDT) Sodium 139 133 - 146 mmol/L 11/04/2024 10:06 AM EDT [facility] Potassium 3.8 3.5 - 5.3 mmol/L 11/04/2024 10:06 AM EDT [facility] Chloride 106 98 - 110 mmol/L 11/04/2024 10:06 AM EDT [facility] CO2 25 21 - 33 mmol/L 11/04/2024 10:06 AM EDT [facility] Anion Gap 8 3 - 16 mmol/L 11/04/2024 10:06 AM EDT [facility] BUN 34(H) 7 - 25 mg/dL 11/04/2024 10:06 AM EDT [facility] Creatinine 1.08 0.60 - 1.30 mg/dL 11/04/2024 10:06 AM EDT [facility] Glucose 92 70 - 100 mg/dL 11/04/2024 10:06 AM EDT [facility] Calcium 7.8(L) 8.6 - 10.3 mg/dL 11/04/2024 10:06 AM EDT [facility] Phosphorus 1.9(L) 2.1 - 4.7 mg/dL 11/04/2024 10:06 AM EDT [facility] Albumin 3.5 3.5 - 5.7 g/dL 11/04/2024 10:06 AM EDT [facility] Osmolality, Calculated 295 278 - 305 mOsm/kg 11/04/2024 10:06 AM EDT [facility] EGFR 88 11/04/2024 10:06 AM EDT [facility] Comment:As of 2021, the [...] AM EDT 11/04/2024 9:32 AM EDT Narrative [facility] - 11/04/2024 10:06 AM EDT Standing orders to be drawn: Every Sunday and before 9am and prior to patient taking morning medications. Liver Transplant Fax results to [phone] Call Critical results to [phone] DO NOT REPLACE RENAL PANEL or HEPATIC FUNCTION PANEL w/ CMP, BMP or HEPATIC PROFILE us Harvey Domínguez III, MD LAB BLOOD ORDERABLE S Final Result [facility] [address] [place] [address], [facility] * (ABNORMAL) Hepatic Function Panel (11/04/2024 8:46 AM EDT) Total Bilirubin 1.3 0.0 - 1.5 mg/dL 11/04/2024 10:06 AM EDT [facility] Bilirubin, Direct 0.57(H) 0.00 - 0.40 mg/dL 11/04/2024 10:06 AM EDT [facility] AST 20 13 - 39 U/L 11/04/2024 10:06 AM EDT [facility] ALT 67(H) 7 - 52 U/L 11/04/2024 10:06 AM EDT [facility] Alkaline Phosphatase 133(H) 36 - 125 U/L 11/04/2024 10:06 AM EDT [facility] Total Protein 5.4(L) 6.4 - 8.9 g/dL 11/04/2024 10:06 AM EDT [facility] Albumin 3.5 3.5 - 5.7 g/dL 11/04/2024 10:06 AM EDT [facility] Bilirubin, Indirect 0.73 0.00 - 1.10 mg/dL 11/04/2024 10:06 AM EDT [facility] Plasma 11/04/2024 8:46 AM EDT 11/04/2024 9:32 AM EDT Narrative [facility] - 11/04/2024 10:06 AM EDT Standing orders to be drawn: Every Sunday and before 9am and prior to patient taking morning medications. Liver Transplant Fax results to [phone] Call Critical results to [phone] DO NOT REPLACE RENAL PANEL or HEPATIC FUNCTION PANEL w/ CMP, BMP or HEPATIC PROFILE us Harvey Domínguez III, MD LAB BLOOD ORDERABLE S Final Result [facility] [address] [place] [address], [facility] * Tacrolimus level (11/04/2024 8:46 AM EDT) Tacrolimus (LC-MS) 9.0 3.0 - 15.0 ng/mL 11/04/2024 3:14 PM EDT [facility] Comment:Performed via liquid chromatography [...] morning medications. Liver Transplant Fax results to [phone] Call Critical results to [phone] us Harvey Domínguez III, MD LAB BLOOD ORDERABLE S Final Result [facility] [address] documented in this encounter Visit Diagnoses [...] documented as of this encounter Care Teams Utilities Equipment Repairer Relationship Specialty Start Date End Date Enedina Mcguire NP [address] [place] [address] PCP - General Internal Medicine 10/05/24 Maureen Pantoja, ЮЛИЯ Txp Post Coordinator Transplant Hepatology 10/28/24 documented as of this encounter
--- OUTSIDE RECORDS SUMMARY | 2024-12-16 10:01 | XMS_ITS | Encounter Summary ---
Author Organization [facility] Address [address] [place] [id number] Care Team Providers Care Set Painter Name Role Phone Enedina Mcguire NP Primary Care Provider + [phone] Maureen Pantoja RN Unavailable Unavail able Source [...] release of HIV test results or diagnoses. [id number] Health Encounter Details Date Type Department Care Team (Late st Contact Info) Description 12/09/2024 Orders Only [facility] Liver Transplant at [address] [place] [address] Maureen Pantoja, RN Social History Tobacco Use [...] Recorded In the past 12 months has [employer], gas, oil, or water [employer] threatened to shut off services in [...] as of this encounter Care Teams Set Painter Relationship Specialty Start Date End Date Enedina Mcguire NP [address] [place] [address] PCP - General Internal Medicine 10/05/24 Maureen Pantoja, ЮЛИЯ Txp Post Coordinator Transplant Hepatology 10/28/24 documented as of this encounter
--- OUTSIDE RECORDS SUMMARY | 2024-12-16 10:01 | XMS_ITS | Encounter Summary ---
Author Organization [facility] Address [address] [place] [address] Care Team Providers Care Advertising Teacher Name Role Phone Enedina Mcguire NP Primary Care Provider + [phone] Maureen Pantoja RN Unavailable Unavail able Source [...] release of HIV test results or diagnoses. [id number] Health Encounter Details Date Type Department Care Team (Late st Contact Info) Description 12/09/2024 Telephone [facility] Liver Transplant at [address] [place] [phone] Mitzy Gill MA Social History Tobacco [...] In the past 12 months has e [employer], gas, oil, or water company threatened to [...] Progress Notes * Marlene Ro MA - 12/11/2024 2:50 PM EDT Was able to speak to Kirt, the pharmacist that was on this case. Notified him that the patients doctor is okay with filling naltrexone and the patient is aware that he is not to take tramadol. Pharmacist verbalized understanding and said they would work on filling it now. * Maureen Pantoja RN - 12/11/2024 2:22 PM EDT D/w Dr. Domínguez. Patient agrees not to take tramadol. OK for pharmacy to fill naltrexone. Txyissel MA to call pharmacy with update. Patient notified via [place]. * Mitzy Gill MA - 12/10/2024 10:09 AM EDT Pt returned call about Tramadol and naltrexone interaction. Pt verbalized understanding about not being able to have naltrexone while also taking tramadol. Pt states his pain mgmt doctor prescribed it, but he doesn't take it much and is willing to stop altogether so he can have the naltrexone. I advised Pt I would pass this information along to CC RN for review and advise. Pt verbalized understanding and agreeable to plan. * Maureen Pantoja RN - 12/09/2024 1:35 PM EDT Reviewed Care Everywhere. Patient was seen by local pain clinic on 12/04/24 for follow-up neck pain and med management. Note from Vazquez Christie PA-C from 12/05/24: Called patient to discuss recent results of urine drug screen. This did reveal positive THC. Discussed since tramadol is a controlled substance that significant acute this is violation of controlled substance agreement. We will proceed with tramadol taper. He voiced understanding. Txp Provider and Txp SW updated. * Mitzy Gill MA - 12/09/2024 1:31 PM EDT LVM for Pt to return call to [phone]. I stated we received a call from [facility] stating he picked up a tramadol prescription on 12/05 and there is an issue with him having naltrexone prescribed as well. Per CC ЮЛИЯ Reddy, Pt cannot have naltrexone filled while actively taking tramadol. Spoke to Kirt at [facility] and advised him not to fill naltrexone prescription and to file it. I advised him we have reached out to the Pt to discuss. Kirt verbalized understanding and states they will not fill naltrexone. * Maureen Pantoja RN - 12/09/2024 1:08 PM EDT Unaware patient was prescribed tramadol - not prescribed by Liver Txp. Reconciled outside meds and see that tramadol 50 mg by mouth daily as needed for moderate pain, #30, was ordered on 12/05/24 by aprovider named Vazquez Christie. Txp MA to contact pharmacy and ask they they please file prescription for naltrexone and not fill at this time. Txp MA to update patient that naltrexone prescription can not be filled while he is concurrently prescribed tramadol. Message routed to Txp Provider and Txp SW for communication. * Mitzy Gill MA - 12/09/2024 12:41 PM EDT Kirt from [facility] states they received a naltrexone prescription today for this Pt. Kirtnotes that the Pt picked up a prescription tramadol on 12/05/24 and naltrexone is an opiod antagonist. Kirt states he wants to ensure that the provider is aware of the interaction and have them comment before they fill the prescription. 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
--- OUTSIDE RECORDS SUMMARY | 2024-12-16 10:01 | XMS_ITS | Encounter Summary ---
Author Organization [facility] Address [address] [place] [address] Care Team Providers Care Anode Adjuster Name Role Phone Enedina Mcguire NP Primary Care Provider + [phone] Maureen Pantoja RN Unavailable Unavail able Source [...] release of HIV test results or diagnoses. [id number] Reason for Visit * Reason Comments Results Encounter Details Date Type Department Care Team (Riky st Contact Info) Description 12/12/2024 Telephone [facility] Liver Transplant at [address] [phone] Maureen Pantoja, RN Results Social [...] In the past 12 months has e [employer], gas, oil, or water [employer] threatened to shut off services in your [...] Progress Notes * Maureen Pantoja RN - 12/12/2024 8:58 AM EDT Lab results from 12/08/24 reviewed. Renal panel stable. Cr 0.90; BUN 21. LFTs stable. Alk phos 80, AST/ALT 16/14. FK 8.4 Will continue to monitor as per previously determined lab intervals. 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
--- OUTSIDE RECORDS SUMMARY | 2024-12-16 10:01 | XMS_ITS | Encounter Summary ---
Author Organization [facility] Address [address] [place] [address] Care Team Providers Care New Home Sales Consultant Name Role Phone Enedina Mcguire NP Primary Care Provider + [phone] Maureen Pantoja RN Unavailable Unavail able Source [...] release of HIV test results or diagnoses. [id number] Health Encounter Details Date Type Department Care Team (Late st Contact Info) Description 12/09/[address] [facility] Liver Transplant at [address] [place] [phone] Kaylin Willard MSW Social History Tobacco Use [...] Recorded In the past 12 months has [employer], gas, oil, or water [employer] threatened to shut off services in [...] encounter Progress Notes * NUBIA Barros - 12/09/2024 11:59 PM EDT Social Work Outpatient Note- Liver Transplant Patient is status post [facility]K transplant on 10/27/2024. MEREDITH met with Patient and brother during Post Liver Transplant Clinic. Patient completed PHQ-9 and MAGALYS-7 today. PHQ-9 Scores: 09/26/2024 11:00 AM 09/29/2024 11:00 AM 11/25/2024 3:00 PM 12/10/2024 9:00 AM PHQ Total Score PHQ-9 Total Score 16 17 3 2 GAD7 Scores: 09/26/2024 11:00 AM 09/29/2024 11:00 AM 11/25/2024 3:00 PM 12/10/2024 9:00 AM [id number] Score MAGALYS-7 Total Score 17 13 4 1 Scores are not concerning for depression/anxiety. Patient scheduled for follow- up with transplant psychologist on 12/18. MEREDITH briefly met with patient and brother. He reports he discussed starting Naltrexone with his provider today and plans to begin this medication. 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 He notes he meets with an PRIVATE WATCHMAN weekly and a counselor weekly through [facility]. He was agreeable to seeing transplant CD counselortoday as well. Of note, pharmacy notified transplant staff that patient also prescribed Tramadol by his pain clinic and is unable to release Naltrexone script at this time. SW to continue to follow. 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
--- OUTSIDE RECORDS SUMMARY | 2024-12-16 10:04 | XMS_ITS | Encounter Summary ---
Author Organization [facility] Address [address] [place] [address] Care Team Providers Care Silver Lap Machine Tender Name Role Phone Enedina Mcguire NP Primary Care Provider + [phone] Maureen Pantoja RN Unavailable Unavail able Source [...] release of HIV test results or diagnoses. [id number] Health Encounter Details Date Type Department Care Team (Late st Contact Info) Description 11/03/2024 Chart Note [facility] Liver Transplant at [address] [place] [phone] Hillary Fernandes, [facility] Liver Transplant Pharmacy Discharge [...] In the past 12 months has e [employer] gas, oil, or water [employer] threatened to shut off services in your [...] (TRUE METRIX GLUCOSE METER) [facility] Use to test blood [...] lancets (ACCU-CHEK SOFTCLIX LANCETS) [facility] Use to test blood [...] times a day. 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
--- OUTSIDE RECORDS SUMMARY | 2024-12-16 10:04 | XMS_ITS | Encounter Summary ---
Author Organization [facility] Address [facility] [place] [address] Care Team Providers Care Chamber Worker Name Role Phone Enedina Mcguire NP Primary Care Provider + [phone] Maureen Pantoja RN Unavailable Unavail able Source [...] release of HIV test results or diagnoses. [id number] Health Encounter Details Date Type Department Care [...] Recorded In the past 12 months has [employer], [employer], oil, or water [employer] threatened to shut off services in your [...] documented as of this encounter Care Teams Chamber Worker Relationship Specialty Start Date End Date Enedina Mcguire NP [address] [place] [address] PCP - General Internal Medicine 10/05/24 Maureen Pantoja, ЮЛИЯ Txp Post Coordinator Transplant Hepatology 10/28/24 documented as of this encounter
--- OUTSIDE RECORDS SUMMARY | 2024-12-16 10:04 | XMS_ITS | Encounter Summary ---
Author Organization [facility] Address [address] [place] [address] Care Team Providers Care Account Services Analyst Name Role Phone Enedina Mcguire NP Primary Care Provider + [phone] Maureen Pantoja RN Unavailable Unavail able Source [...] release of HIV test results or diagnoses. [id number] Health Encounter Details Date Type Department Care Team (Late st Contact Info) Description 10/29/2024 Education Chart Note [facility] Liver Transplant at [address] [place] [phone] Crista Power, RN Social History Tobacco [...] Recorded In the past 12 months has [employer], gas, oil, or water [employer] threatened to shut off services in your [...] of Infection/Rejection [x] 5. When to call bariatric program coordinator [x] 6. Outpatient follow up including [...] times 0900/2100. Julien Anderson has to use [facility]. Meds are getting delivered 10/31/24. documented in this encounter Plan of Treatment Not on file documented as of this encounter Visit Diagnoses Not on filedocumented in this encounter Additional Health Concerns Assessment Noted Time PHQ-9 Depression Total Score: 17 025 11:00 AM EDT documented as of this encounter Care Teams Account Services Analyst Relationship Specialty Start Date End Date Enedina Mcguire NP [address] [place] [address] PCP - General Internal Medicine 10/05/24 Maureen Pantoja, ЮЛИЯ Txp Post Coordinator Transplant Hepatology 10/28/24 documented as of this encounter
--- OUTSIDE RECORDS SUMMARY | 2024-12-16 10:04 | XMS_ITS | Encounter Summary ---
Author Organization [facility] Address [address] [place] [address] Care Team Providers Care Thermospray Operator Name Role Phone Enedina Mcguire NP Primary Care Provider [phone] Source Comments This information has been disclosed [...] release of HIV test results or diagnoses. [id number] Health Encounter Details Date Type Department Care Team (Late st Contact Info) Description 10/17/2024 Pharmacy Services [facility] [address] [place] [phone] Qu, Ridge, RPh Social History Tobacco [...] Recorded In the past 12 months has [employer], gas, oil, or water company threatened to [...] encounter Progress Notes * Ridge Menjivar, [facility] - 10/17/2024 9:47 AM EDT Julien [...] member, friend, or other person (including a third officer). The at-risk individual reports no known [...] documented as of this encounter Care Teams Thermospray Operator Relationship Specialty Start Date End Date Enedina Mcguire NP [address] [place] [address] PCP - General Internal Medicine 10/05/24 documented as of this encounter
--- OUTSIDE RECORDS SUMMARY | 2024-12-16 10:04 | XMS_ITS | Encounter Summary ---
Author Organization [facility] Address [address] [place] [address] Care Team Providers Care Humanities Division Chair Name Role Phone Enedina Mcguire NP Primary Care Provider + [phone] Maureen Pantoja RN Unavailable Unavail able Source [...] release of HIV test results or diagnoses. [id number] Health Encounter Details Date Type Department Care Team (Late st Contact Info) Description 11/03/2024 Telephone [facility] Liver Transplant at [address] [place] [phone] Marisela Martinez MA Social History Tobacco [...] Recorded In the past 12 months has [facility], gas, oil, or water [employer] threatened to shut off services in your [...] he will have his labs drawn at [facility] prior to clinic on 11/03. documented in [...] documented as of this encounter Care Teams Humanities Division Chair Relationship Specialty Start Date End Date Enedina Mcguire NP [address] [place] [address] PCP - General Internal Medicine 10/05/24 Maureen Pantoja, ЮЛИЯ Txp Post Coordinator Transplant Hepatology 10/28/24 documented as of this encounter
--- OUTSIDE RECORDS SUMMARY | 2024-12-16 10:05 | XMS_ITS | Clinical Summary ---
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 [id number] Allergies Active Allergy Reactions [...] EDT 025 Active naloxone (NARCAN) 4 mg/actuation [place] Apply 1 spray in one nostril if [...] g 11/03/19 10:20 AM EDT 025 Active alcohol swabs PadM Use as instructed. 200 each 1 11/03/19 10:20 AM EDT 025 Active methocarbamoL [...] total) by mouth daily. 30 capsule 2 Active acetaminophen (TYLENOL) 325 MG tabletIndications: Encounter for therapeutic drug monitoring,S/P [place] [place]Hypomagn esemia,Kidney transplant recipient,Hyperten kevin, unspecified type,Gastroesophag eal reflux disease, unspecified whether esophagitis present Take 3 tablets (975 mg total) by mouth every 8 hours. 200 tablet 025 Active ergocalciferol (ERGOCALCIFEROL) 1,250 mcg (50,000 unit) capsuleIndications :Encounter for therapeutic drug monitoring,S/P [place] [place]Hypomagn esemia,Kidney transplant recipient,Hyperten kvein, unspecified type,Gastroesophag eal reflux disease, unspecified whether esophagitis present Take 1 capsule (50,000 Units total) by mouth once a week. 4 capsule 2 Active famotidine (PEPCID) 20 MG tabletIndications: Encounter for therapeutic drug monitoring,S/P liver transplant ([facility]),Hypomagn esemia,Kidney transplant recipient,Hyperten kevin, unspecified type,Gastroesophag eal reflux disease, unspecified whether esophagitis present Take 1 tablet (20 mg total) by mouth 2 times a day. 60 tablet 2 025 Active NIFEdipine (PROCARDIA-XL) 30 MG (OSM) 24 hr tabletIndications: Encounter for therapeutic drug monitoring,S/P [place] [place]Hypomagn esemia,Kidney transplant recipient,Hyperten kevin, unspecified type,Gastroesophag eal reflux disease, unspecified whether esophagitis present Take 1 tablet (30 mg total) by mouth daily. 30 tablet 025 Active sulfamethoxazole-t rimethoprim (BACTRIM) 400-80 mg per tabletIndications: Encounter for therapeutic drug monitoring,S/P [place] [place]Hypomagn esemia,Kidney transplant recipient,Hyperten kevin, unspecified type,Gastroesophag eal reflux disease, unspecified whether esophagitis present Take 1 tablet by mouth daily. 30 tablet 2 025 Active mycophenolate (CELLCEPT) 250 mg capsuleIndications :Encounter for therapeutic drug monitoring,S/P liver transplant [place] [place]Hypomagn esemia,Kidney transplant recipient,Hyperten kevin, unspecified type,Gastroesophag eal reflux disease, unspecified whether esophagitis present Take 2 capsules (500 mg total) by mouth 2 times a day. 120 capsule 5 025 Active gabapentin (NEURONTIN) 100 MG capsuleIndications :Encounter for therapeutic drug monitoring,S/P [place] transplant [place] [place]Hypomagn esemia,Kidney transplant recipient,Hyperten kevin, unspecified type,Gastroesophag eal reflux disease, unspecified whether esophagitis present Take 1 capsule (100 mg total) by mouth 3 times a day. 90 capsule 025 Active predniSONE (DELTASONE) 5 MG tablet Take 2 tablets (10 mg total) by mouth daily. 025 Active naltrexone (DEPADE) 50 mg tablet Take 1 tablet (50 mg total) by mouth daily. 30 tablet 025 Active tacrolimus (PROGRAF) 1 MG capsuleIndications :Prevention of Kidney Transplant Rejection,Preventi on of Liver Transplant Rejection Take 6 capsules (6 mg total) by mouth 2 times a day. Use as directed Indications: Prevention of Kidney Transplant Rejection, Prevention of Liver Transplant Rejection 360 capsule 5 Active valGANciclovir (VALCYTE) 450 mg tabletIndications: Encounter for therapeutic drug monitoring,S/P liver transplant ([facility]),Hypomagn esemia,Kidney transplant recipient,Hyperten kevin, unspecified type,Gastroesophag eal reflux disease, unspecified whether esophagitis present Take 2 tablets (900 mg total) by mouth daily. 60 tablet 2 Active FLUoxetine (PROZAC) 20 MG capsule Take 1 capsule (20 mg total) by mouth daily. 30 capsule 2 10/18/19 10:24 AM EDT 025 11/20 Discontinued( Refill / Reorder) ergocalciferol (ERGOCALCIFEROL) 1,250 mcg (50,000 unit) capsule Take 1 capsule (50,000 Units total) by mouth once a week. 4 capsule 2 11/03/19 10:20 AM EDT 11/25 Discontinued( Refill / Reorder) sulfamethoxazole-t rimethoprim (BACTRIM) 400-80 mg per tablet Take 1 tablet by mouth daily. 30 tablet 2 11/03/19 10:20 AM EDT 11/25 Discontinued( Refill / Reorder) valGANciclovir (VALCYTE) 450 mg tablet Take 1 tablet (450 mg total) by mouth daily. 30 tablet 2 11/03/19 10:20 AM EDT 11/25 Discontinued( Refill / Reorder) acetaminophen (TYLENOL) 325 MG tablet Take 3 tablets (975 mg total) by mouth every 8 hours. 200 tablet 11/03/19 10:20 AM EDT 025 11/25 Discontinued( Refill / Reorder) famotidine (PEPCID) 20 MG tablet Take 1 tablet (20 mg total) by mouth 2 times a day. 60 tablet 2 11/03/19 10:20 AM EDT 025 11/25 Discontinued( Refill / Reorder) pen needle, diabetic 32 gauge x 5/32 Ndle For use with insulin pen. Use as instructed. 100 each 2 11/03/19 10:20 AM EDT 12/09 Discontinued blood-glucose meter (TRUE METRIX GLUCOSE METER) Misc Use to test blood sugar up to 4 times a day. 1 each 11/03/19 10:20 AM EDT 12/09 Discontinued blood sugar diagnostic (GLUCOSE BLOOD) Strp Use to test blood sugar up to 4 times a day. 100 strip 11 11/03/19 10:20 AM EDT 12/09 Discontinued lancets (ACCU-CHEK SOFTCLIX LANCETS) Misc Use to test blood sugar up to 4 times a day. 100 each 11/03/19 10:20 AM EDT 12/09 Discontinued insulin aspart, niacinamide, (FIASP FLEXTOUCH U-100 INSULIN) 100 unit/mL (3 mL) InPn Administer insulin with meals per sliding scale: Blood glucose 150-199 mg/dL =2 units, Blood glucose 200-249 mg/dL =4 units, Blood glucose 250-299 mg/dL =7 units, Blood glucose 300-349 mg/dL =10 units, Blood glucose greater than 349 mg/dL = 12 units 15 mL 2 11/03/19 10:20 AM EDT 12/09 Discontinued mycophenolate (CELLCEPT) 250 mg capsule Take [...] days. Last dose 11/26/24 48 tablet 11/03/19 25 10:20 AM EDT 11/25 Discontinued( Therapy Completed / No Longer Needed) fluconazole (DIFLUCAN) 200 MG tablet Take 1 tablet (200 mg total) by mouth daily for 24 days. Last day 11/26/24 24 tablet 11/03/19 25 10:20 AM EDT 11/25 Discontinued( Therapy Completed / No Longer Needed) tacrolimus (PROGRAF) 1 MG capsule Take 6 capsules (6 mg total) by mouth 2 times a day. Use as directed 600 capsule 5 11/25 Discontinued( Refill / Reorder) torsemide (DEMADEX) [...] a day. Indications: metabolic acidosis 60 tablet 11/25 Discontinued( Refill / Reorder) gabapentin (NEURONTIN) 100 MG capsuleIndications :Encounter for therapeutic drug monitoring,S/P liver transplant ([facility]),Hypomagn esemia,Kidney transplant recipient,Hyperten kevin, unspecified type,Gastroesophag eal reflux disease, unspecified whether esophagitis present Take 1 capsule (100 mg total) by mouth 3 times a day. 90 capsule 11/25 Discontinued( Refill / Reorder) sodium bicarbonate 650 MG tabletIndications: metabolic acidosis Take 1 tablet (650 mg total) by mouth 2 times a day. Indications: metabolic acidosis 60 tablet 12/09 Discontinued( Therapy Completed / No Longer Needed) valGANciclovir (VALCYTE) 450 mg tabletIndications: Encounter for therapeutic drug monitoring,S/P liver transplant ([facility]),Hypomagn esemia,Kidney transplant recipient,Hyperten kevin, unspecified type,Gastroesophag eal reflux disease, unspecified whether esophagitis present Take 1 tablet (450 mg total) by mouth daily. 30 tablet 2 025 12/09 Discontinued( Refill / Reorder) tacrolimus (PROGRAF) 1 MG capsuleIndications :Encounter for therapeutic drug monitoring,S/P liver transplant ([facility]),Hypomagn esemia,Kidney transplant recipient,Hyperten kevin, unspecified type,Gastroesophag [...] of Liver Transplant Rejection. 330 capsule 5 12/02 Discontinued( Refill / Reorder) HYDROmorphone (DILAUDID) 2 MG tabletIndications: Abdominal pain, unspecified abdominal location Take 1 tablet (2 mg total) by mouth every 6 hours as needed for up to 7 days. 28 tablet 025 12/02 tacrolimus (PROGRAF) 1 MG capsuleIndications :Prevention of Kidney Transplant Rejection,Preventi on of Liver Transplant Rejection Take 5 capsules (5 mg total) by mouth every morning AND 6 capsules (6 mg total) at bedtime. Use as directed. Indications: Prevention of Kidney Transplant Rejection, Prevention of Liver Transplant Rejection. 330 capsule 5 025 12/09 Discontinued tacrolimus (PROGRAF) 1 MG capsuleIndications :Prevention of Kidney Transplant Rejection,Preventi on of Liver Transplant Rejection Take 6 capsules (6 mg total) by mouth every morning AND 6 capsules (6 mg total) at bedtime. Use as directed. Indications: Prevention of Kidney Transplant Rejection, Prevention of Liver Transplant Rejection. 330 capsule 5 025 12/09 Discontinued( Refill / Reorder) Hospital, Clinic, or Other Facility Administered Medication Ordered Dose Route Frequency Start Date End Date Status lidocaine HCL (XYLOCAINE) 2 % JelP 10 mLIndications:Retained ureteral stent of transplanted kidney (CMS-HCC) 10 mL MM Once 11/25/2024 11/25/2024 Ended [...] blood with several liquid bowel movements starting 6. Minimal blood in toilet was observed. Repeat [...] with SBP, s/p CTX x5d; will cont longterm ppx with Cipro 500mg daily - HE: [...] Date Type Department Care Team Description 12/12/2024 Telephone [facility] Liver Transplant at [address] [place] [address] Maureen Pantoja RN Results 12/09/2024 10:20 AM EDT Office Visit [facility] Liver Transplant at [address] [place] [address] Harvey Domínguez III, MD Encounter for therapeutic drug monitoring (Primary Dx); S/P liver transplant (CMS-HCC); Hypomagnesemia; Kidney transplant recipient; Hypertension, unspecified type; Gastroesophageal reflux disease, unspecified whether esophagitis present 12/09/2024 9:50 AM EDT Office Visit [facility] Liver Transplant at [address] [place] [address] Leisa Juarez MD Kidney transplant recipient (Primary Dx); Immunosuppressive management encounter following liver transplant ([facility]); Hypomagnesemia; S/P liver transplant ([facility]); Hypertension, unspecified type; Hyperparathyroidism ([facility]) 12/09/2024 Social Work [facility] Liver Transplant at [address] [place] [address] Kaylin Willard MSW 12/09/2024 Orders Only [facility] Liver Transplant at [address] [place] [address] Maureen Pantoja, ЮЛИЯ 12/09/2024 Orders Only [facility] Liver Transplant at [address] [place] [address] Maureen Pantoja, ЮЛИЯ Kidney transplant recipient (Primary Dx); Liver transplant recipient ([facility]); Viral disease exposure; Immunosuppression ([facility]) 12/09/2024 Telephone [facility] Liver Transplant at [address] [place] [address] Mitzy Rojas MA 12/09/2024 Chart Note [facility] Liver Transplant at [address] [place] [address] Marlene Ro MA 12/04/2024 Telephone [facility] Liver Transplant at [address] [place] [address] Maureen Pantoja, RN Results 12/04/2024 Chart Note [facility] Liver Transplant at [address] [place] [address] Marlene Ro MA FK Pending-12/0412/04/2024 Telephone [facility] Liver Transplant at [address] [place] [address] Kaylin Willard MSW 12/04/2024 Telephone [facility] Liver Transplant at [address] [place] [address] Marlene Ro MA 12/03/2024 Chart Note [facility] Liver Transplant at [address] [place] [address] Marlene Ro MA 12/02/2024 Telephone [facility] Liver Transplant at [address] [place] [address] Mitzy Rojas MA 12/01/2024 Telephone [facility] Liver Transplant at [address] [place] [address] Gladis Chisholm MA 11/27/2024 Telephone [facility] Liver Transplant at [address] [place] [address] Maureen Pantoja, RN Results 11/27/2024 Chart Note [facility] Liver Transplant at [address] [place] [address] Marlene oR MA FK Pending 11/27 Labs 11/26/2024 Telephone [facility] Liver Transplant at [address] [place] [address] Maureen Pantoja, RN Results 11/25/2024 10:50 AM EDT Office Visit [facility] Liver Transplant at [address] [place] [address] Leisa Juarez MD Kaur, Taranpreet NADIYA (acute kidney injury) ([facility]) (Primary Dx); Kidney replaced by transplant; Metabolic acidosis; Hypervolemia associated with renal insufficiency 11/25/2024 10:20 AM EDT Office Visit [facility] Liver Transplant at [address] [place] [address] [place] [address] Lydia Sanchez MD Encounter for therapeutic drug monitoring (Primary Dx); S/P liver transplant ([facility]); Hypomagnesemia; Kidney transplant recipient; Hypertension, unspecified type; Gastroesophageal reflux disease, unspecified whether esophagitis present; Abdominal pain, unspecified abdominal location 11/25/2024 9:00 AM EDT Procedure visit [facility] Urology at [facility] [address] [facility] [address] [place] [address] Julieta Rogers PA Retained ureteral stent of transplanted kidney ([facility]) (Primary Dx) 11/25/2024 Social Work [facility] Liver Transplant at [address] [place] [address] [place] [address] Kaylin Willard MSW 11/24/2024 Orders Only [facility] Liver Transplant at [address] [place] [address] Maureen Pantoja, ЮЛИЯ 11/21/2024 Orders Only [facility] at [facility] [address] [facility] [place] [address] [place] [address] Vasile Gordillo MA 11/21/2024 Telephone [facility] Liver Transplant at [address] [place] [address] [place] [address] Maureen Pantoja, RN Results 11/21/2024 Chart Note [facility] Liver Transplant at [address] [place] [address] Marlene Ro MA FK: 11/18 & 11/20 Pending 11/20/2024 Refill [facility] Liver Transplant at [address] [place] [address] Maureen Pantoja, ЮЛИЯ 11/20/2024 Refill [facility] Liver Transplant at [address] [place] [address] Maureen Pantoja, ЮЛИЯ 11/20/2024 Orders Only [facility] Liver Transplant at [address] [place] [address] Maureen Pantoja, RN S/P liver transplant (CMS-HCC) (Primary Dx); Immunosuppression (CMS-HCC); Viral disease exposure; Alcohol use 11/18/2024 Telephone [facility] Liver Transplant at [address] [place] [address] Maureen Pantoja, RN Results 11/18/2024 Chart Note [facility] Liver Transplant at [address] [place] [address] Marlene Ro MA 11/11/2024 10:30 AM EDT Office Visit [facility] Liver Transplant at [address] [place] [address] Unknown, Attending Provider Jessica Colon Kidney replaced by transplant (Primary Dx); Hypervolemia associated with renal insufficiency 11/11/2024 10:00 AM EDT Office Visit [facility] Liver Transplant at [address] [place] [address] PachecoCosmo MD Quillin, Ralph Cutler III, MD Encounter for therapeutic drug monitoring (Primary Dx); Abdominal pain, unspecified abdominal location 11/11/2024 9:30 AM EDT Office Visit [facility] Psychiatry Transplant at [address] [address] Lizeth Warren PsyD PTSD (post-traumatic stress disorder) (Primary Dx) 11/11/2024 8:50 AM EDT [facility] [address] [place] [address] Harvey Domínguez III, MD Liver replaced by transplant ([facility]); Immunosuppressive management encounter following liver transplant ([facility]); Kidney transplant recipient 11/11/2024 Telephone [facility] Liver Transplant at [address] [address] Maureen Pantoja, ЮЛИЯ Results 11/10/2024 Orders Only [facility] Liver Transplant at [address] [address] Maureen Pantoja, ЮЛИЯ Liver transplant recipient ([facility]) (Primary Dx); Kidney transplant recipient; Immunosuppressive management encounter following liver transplant ([facility]) 11/10/2024 Orders Only [facility] Liver Transplant at [address] [address] Maureen Pantoja, ЮЛИЯ 11/09/2024 Telephone [facility] [address] [place] [address] Unknown, Attending Provider After Hours Call (Passing blood through stool states started this morning has had 3 bloody bowel movements kidney and liver txp done 2 weeks ago) 11/07/2024 Telephone [facility] Liver Transplant at [address] [phone] Marlene Ro MA 11/07/2024 Telephone [facility] Liver Transplant at [address] [place] [address] Maureen Pantoja, RN Results 11/07/2024 Chart Note [facility] Liver Transplant at [address] [address] Marlene Ro MA FK Pending 11/04/2024 10:10 AM EDT Office Visit [facility] Liver Transplant at [address] [address] Leisa Juarez MD Kidney transplant recipient (Primary Dx); Diarrhea of presumed infectious origin; Hypomagnesemia; Hypervolemia, unspecified hypervolemia type; Liver transplant recipient (CMS-HCC); Other hypervolemia; Hyperparathyroidism (CMS-HCC); Nausea and vomiting, unspecified vomiting type 11/04/2024 8:40 AM EDT Office Visit [facility] Liver Transplant at [address] [address] Cosmo Pacheco MD Liver transplant recipient (CMS-HCC) (Primary Dx); Alcoholic cirrhosis of liver with ascites (CMS-HCC); Kidney transplant recipient; Acute kidney injury superimposed on CKD (CMS-HCC); CKD (chronic kidney disease) stage 4, GFR 15-29 ml/min (CMS-HCC); Immunosuppressive management encounter following liver transplant (CMS-HCC); Abdominal pain, unspecified abdominal location 11/04/2024 Telephone [facility] Liver Transplant at [address] [address] Maureen Pantoja, RN Results 11/04/2024 Results Follow-Up [facility] Liver Transplant at [address] [place] [address] Maureen Pantoja, RN Tacrolimus level, Hepatic Function Panel, Renal Function Panel w/EGFR, Additional followed-up results: 3 11/04/2024 Social Work [facility] Liver Transplant at [address] [place] [phone] Kaylin Willard MSW 11/04/2024 Nutrition [facility] Kidney Transplant at [address] [place] [address] Ben Weiss, DMITRY 11/03/2024 Chart Note [facility] Liver Transplant at [address] [place] [address] Hillary Fernandes, [facility] Liver Transplant Pharmacy Discharge Note 11/03/2024 Telephone [facility] Liver Transplant at [address] [phone] Marisela Martinez MA 10/31/2024 Orders Only [facility] Liver Transplant at [address] [phone] Harvey Domínguez III, MD Liver replaced by transplant ([facility]) (Primary Dx); Immunosuppressive management encounter following liver transplant ([facility]) 10/29/2024 Travel 10/29/2024 Education Chart Note [facility] Liver Transplant at [address] [address] Crista Power RN 10/27/2024 2:34 AM EDT Anesthesia Event [facility] [address] [place] [address] Rocky Manning MD Kopel, Lior, MD 10/27/2024 2:00 AM EDT - 10/27/2024 6:54 AM EDT Surgery [facility] [address] [place] [address] Harvey Domínguez III, MD Donor Kidney Transplant , Back Bench Preparation Donor Kidney, Baseline Kidney transplant biopsy , Insertion of Indwelling Stent , Removal of Perihepatic packing 10/27/2024 Pharmacy Services [facility] [address] [place] [address] Opal Cox, Lissett 10/27/2024 Chart Note [facility] Kidney Transplant at [address] [place] [address] Karen Rosen, RN I have verified that the donor serologies entered in Epic match the donor 10/27/2024 Chart Note [facility] Liver Transplant at [address] [place] [address] Crista Poewr, RN I introduced myself as inpatient liver/kidney mission coordinator, 10/27/2024 Orders Only [facility] Pancreas Trans[facility] at [facility] [address] [place] [address] Abdulkadir Gaspar MD 10/26/2024 Chart Note [facility] Kidney Transplant at [address] [place] [address] Geri Vasquez RN 10/26/2024 Chart Note [facility] Liver Transplant at [address] [place] [address] Geri Vasquez RN 10/25/2024 10:54 PM EDT Anesthesia Event [facility] [place] [address] Eber Quinones MD Edwards, Anna, MD 10/25/2024 10:30 PM EDT - 10/26/2024 6:12 AM EDT Surgery [facility] [address] [place] [place] [address] Harvey Domínguez III, MD LIVER TRANSPLANT 10/25/2024 8:46 PM EDT - 11/02/2024 6:23 PM EDT Hospital Encounter [address] [place] [address] Harvey Domínguez III, MD Haugen, Christine, MD Acute kidney injury superimposed on CKD ([facility]) (Primary Dx); Prophylactic antibiotic; Prolonged QT interval; Immunosuppression (CMS-HCC); Abdominal pain, unspecified abdominal location Discharge Disposition: Home or Self Care WITHOUT Home Care Services 10/25/2024 Travel 10/25/2024 Telephone [facility] Liver Transplant at [address] [place] [phone] Krissy Crowell, ЮЛИЯ DDLT patient instructions 10/25/2024 Telephone [facility] Liver Transplant at [address] [address] Krissy Crowell, ЮЛИЯ 10/24/2024 Telephone [facility] Renal Hypertension Clinic at [address] [place] [phone] Joann Davies MA Appointment 10/22/2024 Telephone [facility] Liver Transplant at [address] [place] [address] Mary Butler RN 10/22/2024 Chart Note [facility] Kidney Transplant at [address] [place] [phone] Gladis Rainey RN Received most recent eGFR from today with result of 21. Pt meets CKD 10/22/2024 Chart Note [facility] Liver Transplant at [address] [place] [phone] Faraz Carballo, ЮЛИЯ 2nd ABO verified for SLK listing at the request of JOSE G Butler. 10/22/2024 Telephone [facility] Psychiatry Transplant at [address] [place] [phone] Lizeth Warren PsyD 10/22/2024 Chart Note [facility] [address] [place] [address] Aaron Gonzalez MD Candidacy for a simultaneous liver-kidney transplant 10/22/2024 Status Update [facility] Kidney Transplant at [address] [place] [address] Aaron Gonzalez MD 10/22/2024 Chart Note [facility] Liver Transplant at [address] [place] [address] Mary Butler, RN UNOS VERIFICATION CHECK FORM 10/22/2024 Orders Only [facility] Pancreas Transplant at [facility] [address] [place] [address] Abdulkadir Gaspar MD 10/22/2024 Chart Note [facility] Liver Transplant at [address] [place] [address] Mary Butler, RN 10/21/2024 Telephone [facility] Gastroenterology at [facility] [address] [facility] [address] [place] [address] Gerri Peterson MD Medication Management (Requesting RX for New Medication ) 10/21/2024 Refill [facility] Gastroenterology at [facility] [address] [facility] [address] [place] [address] Gerri Peterson MD 10/20/2024 9:10 AM EDT - 10/20/2024 11:59 PM EDT Hospital Encounter [facility] Radiology [address] [place] [address] System, Provider Not In Discharge Disposition: Home or Self Care WITHOUT Home Care Services 10/20/2024 9:10 AM EDT - 10/20/2024 11:59 PM EDT Hospital Encounter [facility] Radiology [address] [place] [address] System, Provider Not In Discharge Disposition: Home or Self Care WITHOUT Home Care Services 10/20/2024 9:10 AM EDT - 10/20/2024 11:59 PM EDT Hospital Encounter [facility] Radiology [address] [place] [address] System, Provider Not In Discharge Disposition: Home or Self Care WITHOUT Home Care Services 10/20/2024 9:10 AM EDT - 10/20/2024 11:59 PM EDT Hospital Encounter [facility] Radiology [address] [place] [address] System, Provider Not In Discharge Disposition: Home or Self Care WITHOUT Home Care Services 10/20/2024 9:10 AM EDT - 10/20/2024 11:59 PM EDT Hospital Encounter [facility] Radiology [address] [place] [address] System, Provider Not In Discharge Disposition: Home or Self Care WITHOUT Home Care Services 10/20/2024 9:10 AM EDT - 10/20/2024 11:59 PM EDT Hospital Encounter [facility] Radiology [address] [place] [address] System, Provider Not In Discharge Disposition: Home or Self Care WITHOUT Home Care Services 10/20/2024 9:10 AM EDT - 10/20/2024 11:59 PM EDT Hospital Encounter [facility] Radiology [address] [place] [address] System, Provider Not In Discharge Disposition: Home or Self Care WITHOUT Home Care Services 10/20/2024 Orders Only [facility] Pancreas Transplant at [facility] [address] [place] [address] Abdulkadir Gaspar MD 10/20/2024 Telephone [facility] Gastroenterology at [facility] [address] [facility] [address] [place] [phone] Gerri Peterson MD Prescription Issue (RX Clarification Request ) 10/20/2024 Refill [facility] Gastroenterology at [facility] Office [address] [facility] [address] [place] [phone] Gerri Peterson MD 10/20/2024 Telephone [facility] Liver Transplant at [address] [place] [address] Mayr Butler, ЮЛИЯ 10/17/2024 Chart Note [facility] Kidney Transplant at [address] [place] [address] Anny Cote, RN Copy of HLA report scanned into the media tab. Will follow up on GFR 10/17/2024 Chart Note [facility] Kidney Transplant at [address] [place] [address] Anny Cote RN 10/17/2024 Pharmacy Services [facility] [address] [place] [phone] Ridge Menjivar jaymie 10/14/2024 8:42 AM EDT - 10/14/2024 9:27 AM EDT Surgery [facility] Cardiac Lead Ramp Agent [address] [place] [phone] Irving Matta MD Left Heart Cath 10/14/2024 Chart Note [facility] Kidney Transplant at [address] [place] [phone] Dean Roblse [facility] [address] 10/10/2024 12:01 PM EDT Anesthesia Event [facility] ENDOSCOPY [address] [place] [phone] Cady Bhat MD Nguyen, Quinn, MD 10/10/2024 10:36 AM EDT - 10/10/2024 11:06 AM EDT Surgery [facility] ENDOSCOPY [address] [place] [phone] Lino Soto MD EGD 10/09/2024 Social Work [facility] Liver Transplant at [address] [place] [address] Kaylin Willard MSW 10/09/2024 Chart Note [facility] Kidney Transplant at [address] [place] [address] Dean Robles [facility] [address] call from Elle [facility] fx [phone] 10/09/2024 Chart Note [facility] Kidney Transplant at [place] [address] [place] [address] Dean Robles [facility] [address] 10/07/2024 Chart Note [facility] Liver Transplant at [place] [address] [place] [address] Mary Butler, RN Spoke with Blair Anderson today for 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 Message to nephrology 10/07/2024 Chart Note [facility] Kidney Transplant at [address] [place] [address] Chey Nicole MA This MA received new referral for PT. Will FU once financially cleared. 10/07/2024 Chart Note [facility] Kidney Transplant at [address] [place] [address] Anny Cote, RN Simultaneous Liver-Kidney Transplant Referral 10/06/2024 Travel 10/05/2024 11:12 PM EDT - 10/17/2024 10:29 AM EDT Hospital Encounter [facility] 8E [address] [place] [phone] Gómez Blanchard MD Wood, Sharice N, MD [...] Care WITHOUT Home Care Services 10/05/2024 Telephone [facility] PATIENT SERVICES [address] [place], [place] [phone] Unknown, Attending Provider After Hours Call 10/01/2024 Telephone [facility] Liver Transplant at [place] [address] [facility] [address] [place] [address] Armand Salinas RN 09/30/2024 Social Work [facility] Liver Transplant at [place] [address] [facility] [address] [place] [address] Kaylin Willard MSW 09/29/2024 11:00 AM EDT Office Visit [facility] Psychiatry Transplant at [place] [address] [facility] [address] [place] [address] Lizeth Warren PsyD PTSD (post-traumatic stress disorder) (Primary Dx); Alcohol use disorder 09/26/2024 Abstract [facility] Gastroenterology at [facility] [address] [facility] [address] [place] [phone] Gerri Peterson MD 09/25/2024 11:25 AM EDT [facility] [address] [place] [address] Gerri Peterson MD Cirrhosis of liver with ascites, unspecified hepatic cirrhosis type (CMS-HCC); Pre-transplant evaluation for chronic liver disease; Alcoholic cirrhosis of liver without ascites (CMS-HCC) 09/25/2024 Social Work [facility] Liver Transplant at [address] [place] [address] Kaylni Willard MSW 09/25/2024 Telephone [facility] Interventional Radiology [address] [place] [phone] Thad De Leon Appointment 09/25/2024 Orders Only [facility] Liver Transplant at [place] [address] [place] [address] Mary Butler, ЮЛИЯ Pre-transplant evaluation for chronic liver disease (Primary Dx); Alcoholic cirrhosis of liver without ascites (CMS-HCC) 09/24/2024 Orders Only [facility] Gastroenterology at [address] [place] [address] Gerri Peterson MD Cirrhosis of liver with ascites, unspecified hepatic cirrhosis type (CMS-HCC) (Primary Dx) 09/24/2024 Orders Only [facility] Gastroenterology at [facility] [address] [facility] [address] [place] [address] Gerri Peterson MD Cirrhosis of liver with ascites, unspecified hepatic cirrhosis type (CMS-HCC) (Primary Dx) 09/23/2024 Telephone [facility] Gastroenterology at [facility] [address] [facility] [address] [place] [address] Gerri Peterson MD Orders (Order Clarification Request/) 09/22/2024 Telephone [facility] Gastroenterology at [facility] [address] [facility] [address] [place] [address] Gerri Peterson MD Orders (Order Clarification Request ) 09/17/2024 Telephone [facility] Liver Transplant at [address] [place] [phone] Kaylin Willard, RESEARCH HOME ECONOMIST 09/17/2024 Abstract [facility] Gastroenterology at [facility] [address] [facility] [address] [place] [address] Gerri Peterson MD 09/17/2024 Telephone [facility] Liver Transplant at [address] [place] [address] Kaylin Willard, [employer] HOME ECONOMIST 09/16/2024 Telephone [facility] Gastroenterology at [facility] [address] [facility] [address] [place] [address] Gerri Peterson MD Medical Management (Plan of Care Inquiry/Question ) from Last 3 Months Social History Tobacco [...] Recorded In the past 12 months has [facility] [employer], or water [employer] threatened to shut off services in your [...] Pulse 81 12/09/2024 10:58 AM EDT Temperature 36.5 C (97.7 F) 11/25/2024 10:39 AM EDT Respiratory Rate 16 12/09/2024 10:58 AM EDT Oxygen Saturation 100% 12/09/2024 10:58 AM EDT Inhaled Oxygen Concentration 100% 12/09/2024 1 0:58 AM EDT Weight 101.6 kg (224 lb) 12/09/2024 10:58 AM EDT Height 193 cm (6' 4 ) 11/25/2024 10:39 AM EDT Body Mass Index 27.27 11/25/2024 10:39 AM EDT Plan of Treatment [...] 10/05/2024, 09/03/2024, Additional history exists Renal Function/GFR 12/08/2025 12/08/2024, 0 12/04/2024, 12/02/2024, Additional history exists Depression Screening 12/10/2025 12/10/2024, 12/10/2024, 09/29/2024, Additional history exists Immunization: DTaP/Tdap/Td ( 3 - Td or Tdap) 06/03/2028 06/03/2018, 09/13/2010 Hepatitis C Screening (MyChart) Completed 10/25/2024, 10/07/2024, 10/06/2024, Additional history exists HIV Screening Completed 11/25/2024, 10/12, 10/07/2024 Procedures Procedure Name Priority Date/Time Associated Diagnosis Comments TACROLIMUS LEVEL Routine 12/08/2024 10:43 AM EDT MAGNESIUM Routine 12/08/2024 10:43 AM EDT RENAL FUNCTION PANEL W/O EGFR Routine 12/08/2024 10:43 AM EDT CREATININE, URINE, RANDOM Routine 2024 10:43 AM EDT URINALYSIS W/RFL TO MICROSCOPIC Routine 12/08/2024 10:43 AM EDT URINE PROTEIN, TOTAL, RANDOM (W/O CREATININE) Routine 12/08/2024 10:43 AM EDT HEPATIC FUNCTION PANEL Routine 10:43 AM EDT CBC AND DIFFERENTIAL Routine 12/08/2024 10:43 AM EDT URINE CULTURE Routine 12/08/2024 10:43 AM EDT TACROLIMUS LEVEL Routine 12/04/2024 7:47 [...] 11/25/2024 8:42 AM EDT S/P liver transplant ([facility]-HCC) Immunosuppression ([facility]-HCC) Alcohol use HIV-1 RNA, QUANTITATIVE, PCR Routine 11/25/2024 8:42 AM EDT S/P liver transplant (CMS-HCC) Immunosuppression ([facility]-HCC) Viral disease exposure HEPATITIS C RNA, QUANTITATIVE PCR Routine 11/25/2024 8:42 AM EDT S/P liver transplant (CMS-HCC) Immunosuppression ([facility]-HCC) Viral disease exposure HEPATITIS B VIRUS (HBV), REAL-TIME PCR, QUANT Routine 11/25/2024 8:42 AM EDT S/P liver transplant (CMS-HCC) Immunosuppression ([facility]-HCC) Viral disease exposure MAGNESIUM Routine 11/25/2024 8:42 [...] Routine 10/31/2024 10:19 AM EDT US DUPLEX [id number]-[id number] COMPLETE Routine 10/31/2024 10:19 AM EDT ECG [...] STAT 10/28/2024 4:23 PM EDT US DUPLEX [id number] COMPLETE STAT 10/28/2024 4:23 PM EDT TRANSFUSE [...] STAT 10/27/2024 9:51 AM EDT US DUPLEX [id number] COMPLETE STAT 10/27/2024 9:51 AM EDT US [...] Acute kidney injury superimposed on CKD (CMS-HCC) TN RENAL ALTRNSPLJ IMPLTJ 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 10/27/2024 2:32 AM EDT Acute kidney [...] LIPID PANEL Routine 10/07/2024 6:37 PM EDT [id number] (AAT) QUANTITATION & MUTATION Routine 10/07/2024 6:37 [...] Routine 10/07/2024 3:48 PM EDT US DUPLEX [id number] COMPLETE Routine 10/07/2024 3:48 PM EDT CARISA [...] 10/06/2024 4:01 AM EDT UPPER RESPIRATORY VIRAL/BACTERIAL PANEL-DRUGLESS DOCTOR ONLY Routine 10/06/2024 3:12 AM EDT XR [...] PANEL, FASTING Routine 09/16/2024 12:20 PM EDT from Last 3 Months Results * Urine Protein, Tot, Random (w/o Creat) (12/08/2024 10:43 AM EDT) Only the most recent of2 resultswithin the time period is included. Total Protein, Ur 11.0 Urine Narrative Resulting Agency Comment [facility] Result [facility] URINE ORDERABLES Final Re sult * (ABNORMAL) Hepatic Function Panel (12/08/2024 10:43 AM EDT) Only the most recent of39 resultswithin the time period is included. Bilirubin, Direct 0.1 Bilirubin, Indirect 0.2 Alkaline Phosphatase 80 U/L ALT 14 U/L AST 16 U/L Total Bilirubin 0.3 0.1 - 1.4 mg/dL Total Protein 5.6(A) 6.4 - 8.2 g/dL Plasma Narrative Resulting Agency Comment [facility] Result [facility] LAB BLOOD ORDERABLES Denisse l Result * Tacrolimus level (12/08/2024 10:43 AM EDT) Only the most recent of16 resultswithin the time period is included. Tacrolimus Lvl 8.4 6 - 15 ng/mL Whole Blood Result [facility] LAB BLOOD ORDERABLES Denisse l Result * Creatinine, urine, random (12/08/2024 10:43 AM EDT) Only the most recent of3 resultswithin the time period is included. Creatinine, Urine 65 Urine Narrative Resulting Agency Comment [facility] Result [facility] URINE ORDERABLES Final Re sult * Urinalysis w/Rfl to Microscopic (12/08/2024 10:43 AM EDT) Only the most recent of7 resultswithin the time period is included. Glucose, UA Negative Negative Ketones, UA Negative Negative Blood, UA Negative Negative Bilirubin, UA Negative Negative Urobilinogen, UA Normal Normal Protein, UA Negative Negative Nitrite, UA Negative Negative Leukocyte Esterase, UA Negative Negative pH, UA 6.0 4.5 - 8.0 Specific Dalton, UA 1.010 1.005 - 1.030 Clarity, UA Clear Clear Color, UA Yellow Light Yellow, Yellow Urine Narrative Resulting Agency Comment [facility] Result [facility] Provider URINE ORDERABLES Final Re sult * (ABNORMAL) CBC and differential (12/08/2024 10:43 AM EDT) Only the most recent of9 resultswithin the time period is included. Hemoglobin 10.3(A) 13.5 - 17.5 g/dL Hematocrit [...] 5.1 10^3/mL Blood Narrative Resulting Agency Comment [facility] Result [facility] Provider LAB BLOOD ORDERABLES Denisse l Result * Urine culture (12/08/2024 10:43 AM EDT) Only the most recent of3 resultswithin the time period is included. Urine Culture, Comprehensive No growth URINE SPECIMEN / Unknown Result [facility] Provider MICROBIOLOGY - GENERAL OR DERABLES Final Result * (ABNORMAL) Magnesium (12/08/2024 10:43 AM EDT) Only the most recent of30 resultswithin the time period is included. Pathologist [facility] Magnesium 1.3(A) 1.6 - 2.4 mg/dL Plasma Narrative Resulting Agency Comment [facility] Provider MD LAB BLOOD ORDERABLES Denisse l Result * (ABNORMAL) Renal Function Panel w/o EGFR (12/08/2024 10:43 AM EDT) Only the most recent of11 resultswithin the time period is included. [facility] Glucose 83 mg/dL BUN 21 4 - [...] Narrative Resulting Agency Comment [facility] Provider MD LAB BLOOD ORDERABLES Denisse l Result * Protime-INR (12/04/2024 7:47 AM EDT) Only the most recent of27 resultswithin the time period is included. [facility] INR 0.99 0.9 - 1.1 Plasma Narrative Resulting Agency Comment [facility] Provider MD LAB BLOOD ORDERABLES Denisse l Result * Phosphatidylethanol Confirmation, B (11/25/2024 8:42 AM EDT) Only the most recent of4 resultswithin the time period is included. [facility] PETH 16:0/18.1 (POPETH) 14 Cutoff: 10 ng/mL 11/28/2024 8:24 AM EDT [facility] Comment: Phosphatidylethanol [...] Cutoff: 10 ng/mL 11/28/2024 8:24 AM EDT [facility] Comment: PEth 16:0/18:2 (PLPEth) Reference ranges are not well established PEth Interpretation Positive. 11/28 8:24 AM EDT [facility] Comment: ADDITIONAL [...] Drug Administration. Test Performed by: [facility] [place] [address] Continuity Tester: Kathy Ortiz Ph.D.; CLIA# [id number] Whole Blood 11/25/2024 8:42 AM EDT 11/28/2024 8:24 AM EDT Narrative [facility] - 11/28/2024 8:24 AM EDT One time lab order to be collected with next set of standing liver transplant labs. Please fax all results to [phone]. Call critical results to [phone]. us Harvey Domínguez III, MD LAB BLOOD ORDERABLE S Final Result [facility] [address] [place] [address], [facility] * Hepatitis B Virus (HBV), PCR, Quant (11/25/2024 8:42 AM EDT) Hep B Viral DNA IU/ML Not Detected IU/mL 11/28/2024 10:09 AM EDT [facility] Comment:Test methodology for HBV DNA quantification is an FDA-approved nucleic acid amplification assay. The lower limit of quantitation (LLOQ) is 10 IU/mL. The linear range of the assay is 10-1,000,000,000 IU/mL. The limit of detection (LoD) for plasma is 2.7 IU/mL. The reference range is Not Detected. log 10 HBV as IU/mL See Note log 10 IU/mL 11/28/2024 10:09 AM EDT [facility] Comment:HBV DNA not detected . Plasma 11/25/2024 8:42 AM EDT 11/25/2024 10:59 AM EDT Narrative [facility] - 11/28/2024 10:09 AM EDT One time lab order to be collected with next set of standing liver transplant labs. UNOS requirement. Please fax all results to [phone]. Call critical results to [phone]. us Harvey Domínguez III, MD LAB BLOOD ORDERABLE S Final Result [facility] [address] [place] [address], [facility] * HIV-1 RNA, Quantitative, PCR (11/25/2024 8:42 AM EDT) HIV 1 Copies Not Detected copies/mL 11/26/2024 10:57 AM EDT [facility] Comment:Test methodology for HIV-1 RNA quantification is an FDA-approved nucleic acid amplification assay. The Lower Limit of Quantitation (LLoQ) is 20 copies/mL. The linear range is 20- to 10,000,000 copies/mL. The Limit of Detection (LoD) is 13.2 copies/mL. The reference range is Not Detected. HIV [id number] See Note [id number] /mL 11/26/2024 10:57 AM EDT [facility] Comment:HIV-1 RNA not detect ed. Plasma 11/25/2024 8:42 AM EDT 11/25/2024 10:59 AM EDT [facility] LAB - 11/26/2024 10:57 AM EDT One time lab order to be collected with next set of standing liver transplant labs. UNOS requirement. Please fax all results to [phone]. Call critical results to [phone]. Harvey Domínguez III, MD LAB BLOOD ORDERABLE S Final Result Performing Organization Address City/[facility] Co de Phone Number [facility] [address] * Hepatitis C RNA, Quantitative PCR (11/25/2024 8:42 AM EDT) [employer] Units Not Detected IU/mL 11/27/2024 11:35 AM EDT [facility] Comment:Test methodology for HCV RNA quantification is an FDA-approved nucleic acid amplification assay. The Lower Limit of Quantitation (LLOQ) is 15 IU/mL. The linear range of the assay is 15-100,000,000 IU/mL. The Limit of Detection (LoD) is 12.0 IU/mL for EDTA plasma. The reference range is Not Detected. IU log10 See Note log 10 IU/mL 11/27/2024 11:35 AM EDT [facility] Comment:HCV RNA not detected . Plasma 11/25/2024 8:42 AM EDT 11/25/2024 10:59 AM EDT [facility] - 11/27/2024 11:35 AM EDT One time lab order to be collected with next set of standing liver transplant labs. UNOS requirement. Please fax all results to [phone]. Call critical results to [phone]. us Harvey Domínguez III, MD LAB BLOOD ORDERABLE S Final Result Performing Organization Address City/[facility]/ZIP Co de Phone Number [facility] [address] * Differential (11/25/2024 8:42 AM EDT) Only the most recent of6 resultswithin the time period is included. Neutrophils Relative 73.2 40.0 - 80.0 % 11/25/2024 10:25 AM EDT [facility] Lymphocytes Relative 19.2 15.0 - 45.0 % 11/25/2024 10:25 AM EDT [facility] Monocytes Relative 6.3 0.0 - 12.0 % 11/25/2024 10:25 AM EDT [facility] Eosinophils Relative 0.4 0.0 - 8.0 % 11/25/2024 10:25 AM EDT [facility] Basophils Relative 0.9 0.0 - 1.0 % 11/25/2024 10:25 AM EDT [facility] nRBC 0 0 - 0 /100 WBC 11/25/2024 10:25 AM EDT [facility] Neutrophils Absolute 5,929 1,520 - 8,640 /uL 11/25/2024 10:25 AM EDT [facility] Lymphocytes Absolute 1,555 570 - 4,860 /uL 11/25/2024 10:25 AM EDT [facility] Monocytes Absolute 510 0 - 1,296 /uL 11/25/2024 10:25 AM EDT [facility] Eosinophils Absolute 32 0 - 864 /uL 11/25/2024 10:25 AM EDT [facility] Basophils Absolute 73 0 - 108 /uL 11/25/2024 10:25 AM EDT [facility] Whole Blood 11/25/2024 8:42 AM EDT 11/25/2024 9:44 AM EDT Narrative [facility] - 11/25/2024 10:25 AM EDT Standing orders to be drawn: Every Sunday and before 9am and prior to patient taking morning medications. Liver Transplant Fax results to [phone] Call Critical results to [phone] us Harvey Domínguez III, MD LAB BLOOD ORDERABLE S Final Result [facility] [address] [place] [address], [facility] * (ABNORMAL) CBC (11/25/2024 8:42 AM EDT) Only the most recent of38 resultswithin the time period is included. WBC 8.1 3.8 - 10.8 10E3/uL 11/25/2024 10:25 AM EDT [facility] RBC 3.71(L) 4.20 - 5.80 10E6/uL 11/25/2024 10:25 AM EDT [facility] Hemoglobin 11.7(L) 13.2 - 17.1 g/dL 11/25/2024 10:25 AM EDT [facility] Hematocrit 33.8(L) 38.5 - 50.0 % 11/25/2024 10:25 AM EDT [facility] MCV 91.1 80.0 - 100.0 fL 11/25/2024 10:25 AM EDT [facility] MCH 31.5 27.0 - 33.0 pg 11/25/2024 10:25 AM EDT [facility] MCHC 34.6 32.0 - 36.0 g/dL 11/25/2024 10:25 AM EDT [facility] RDW 20.0(H) 11.0 - 15.0 % 11/25/2024 10:25 AM EDT [facility] Platelets 193 140 - 400 10E3/uL 11/25/2024 10:25 AM EDT [facility] Comment:Slide Reviewed for P LT Clumps. None Seen. MPV 6.9(L) 7.5 - 11.5 fL 11/25/2024 10:25 AM EDT [facility] Whole Blood 11/25/2024 8:42 AM EDT 11/25/2024 9:44 AM EDT us Gerri Peterson MD LAB BLOOD ORDERABLES Final Resu lt [facility] [address] [place] [address], [facility] * (ABNORMAL) Comprehensive metabolic panel (11/25/2024 8:42 AM EDT) Only the most recent of5 resultswithin the time period is included. Sodium 141 133 - 146 mmol/L 11/25/2024 10:20 AM [facility] Potassium 4.3 3.5 - 5.3 mmol/L 11/25/2024 10:20 AM [facility] Chloride 106 98 - 110 mmol/L 11/25/2024 10:20 AM [facility] CO2 23 21 - 33 mmol/L 11/25/2024 10:20 AM [facility] Anion Gap 12 3 - 16 mmol/L 11/25/2024 10:20 AM [facility] BUN 43(H) 7 - 25 mg/dL 11/25/2024 10:20 AM [facility] Creatinine 1.59(H) 0.60 - 1.30 mg/dL 11/25/2024 10:20 AM [facility] Glucose 93 70 - 100 mg/dL 11/25/2024 10:20 AM [facility] Calcium 10.0 8.6 - 10.3 mg/dL 11/25/2024 10:20 AM [facility] Total Bilirubin 0.7 0.0 - 1.5 mg/dL 11/25/2024 10:20 AM [facility] AST 9(L) 13 - 39 U/L 11/25/2024 10:20 AM [facility] ALT 22 7 - 52 U/L 11/25/2024 10:20 AM [facility] Alkaline Phosphatase 198(H) 36 - 125 U/L 11/25/2024 10:20 AM [facility] Total Protein 7.0 6.4 - 8.9 g/dL 11/25/2024 10:20 AM [facility] Albumin 4.5 3.5 - 5.7 g/dL 11/25/2024 10:20 AM [facility] Osmolality, Calculated 303 278 - 305 mOsm/kg 11/25/2024 10:20 AM [facility] EGFR 56 11/25/2024 10:20 AM [facility] Comment:As of 2021, the [...] ORDERABLES Final Resu lt Performing Organization Address City/[facility]/ZIP Co de Phone Number [facility] [address] [facility]. [address] * (ABNORMAL) Post Kidney Transplant Urine Culture (11/11/2024 9:13 AM EDT) Only the most recent of3 resultswithin the time period is included. Culture Result Enterococcus faecium(A) [facility] Comment: <1,000 cfu/mL Identified by MALDI-TOF MS No Further Workup Midstream Urine URINE SPECIMEN / Unknown 11/11/2024 9:13 AM EDT 11/11/2024 10:17 AM EDT Caron Santos CNP MICROBIOLOGY - GENERAL OR DERABLES Final Result Performing Organization Address [facility] Co de Phone Number [facility] [address] [facility]. [address] * (ABNORMAL) Renal Function Panel w/EGFR (11/11/2024 9:13 AM EDT) Only the most recent of32 resultswithin the time period is included. Sodium 141 133 - 146 mmol/L 11/11/2024 10:51 AM EDT [facility] Potassium 4.6 3.5 - 5.3 mmol/L 11/11/2024 10:51 AM EDT [facility] Chloride 108 98 - 110 mmol/L 11/11/2024 10:51 AM EDT [facility] CO2 24 21 - 33 mmol/L 11/11/2024 10:51 AM EDT [facility] Anion Gap 9 3 - 16 mmol/L 11/11/2024 10:51 AM EDT [facility] BUN 27(H) 7 - 25 mg/dL 11/11/2024 10:51 AM EDT [facility] Creatinine 1.14 0.60 - 1.30 mg/dL 11/11/2024 10:51 AM EDT [facility] Glucose 97 70 - 100 mg/dL 11/11/2024 10:51 AM EDT [facility] Calcium 8.6 8.6 - 10.3 mg/dL 11/11/2024 10:51 AM EDT [facility] Phosphorus 4.4 2.1 - 4.7 mg/dL 11/11/2024 10:51 AM EDT [facility] Albumin 3.8 3.5 - 5.7 g/dL 11/11/2024 10:51 AM EDT [facility] Osmolality, Calculated 297 278 - 305 mOsm/kg 11/11/2024 10:51 AM EDT [facility] EGFR 83 11/11/2024 10:51 AM EDT [facility] Comment:As of [...] AM EDT 11/11/2024 10:19 AM EDT Narrative [facility] - 11/11/2024 10:51 AM EDT Standing orders to be drawn: Every Sunday and Thursday before 9am and prior to patient taking morning medications. Liver Transplant Fax results to [phone] Call Critical results to [phone] DO NOT REPLACE RENAL PANEL or HEPATIC FUNCTION PANEL w/ CMP, BMP or HEPATIC PROFILE Harvey Domínguez III, MD LAB BLOOD ORDERABLE S Final Result Performing Organization Address [facility] de Phone Number [facility] [address] * Protein / creatinine ratio, urine (11/11/2024 9:13 AM EDT) Only the most recent of2 resultswithin the time period is included. Creatinine, Urine 71.40 mg/dL 11/11/2024 10:38 AM EDT [facility] Comment:Reference range not established for this test. Total Protein, Ur 28 mg/dL 11/11/2024 10:38 AM EDT [facility] Comment:Reference range not established for this test. Prot/Creat Ratio, Ur 0.39 ratio 11/11/2024 10:38 AM EDT [facility] Urine 11/11/2024 9:13 AM EDT 11/11/2024 10:12 AM EDT us Caron Santos [employer] SALES [employer]ENT URINE ORDERABLES Final Re sult Performing Organization Address [facility] de Phone Number [facility] [address] * EKG - scan (11/03/2024 9:07 [...] - 100 mg/dL 11/02/2024 5:45 PM EDT [facility] Blood 11/02/2024 5:44 PM EDT 11/02/2024 5:45 PM EDT us Harvey Domínguez III, MD POINT OF CARE TEST ORDERABLES Final Result [facility] [address] [place] [address], [facility] * X-ray Portable Abdomen [...] Adrenal gland: No focal nodule seen. Kidneys: Barrow kidneys noted with nonobstructing calcifications on the right. Findings of postsurgical changes in the left [place] kidney. Mild right hydronephrosis without an obstructive [...] Adrenal gland: No focal nodule seen. Kidneys: [place] kidneys noted with nonobstructing calcifications on theright. Findings of postsurgical changes in the left [place] kidney. Mildright hydronephrosis without an obstructive course [...] QT: 400 ms QTc: 456 ms P Waban: 49 degrees R Waban: 3 degrees T Waban: 14 degrees Diagnosis Line: NORMAL SINUS RHYTHM ^ NORMAL ECG ^ ^ Confirmed by MD REID JAMES ([id number]) on 11/02/2024 6:56:52 AM Priti Alex CNP ECG ORDERABLES Final Result MUSE * US Duplex [id number] Comp (10/31/2024 10:19 AM EDT) Only the [...] EXAM: US ABDOMEN LIMITED EXAM: US DUPLEX [id number] COMPLETE INDICATION: Post-op liver transplant COMPARISON: None [...] visualized secondary to poor acoustic windows. The [place] right kidney measures 11.6 cm in length. [...] EXAM: US ABDOMEN LIMITED EXAM: US DUPLEX [id number] COMPLETE INDICATION: Post-op liver transplant COMPARISON: None [...] well visualized secondary to poor acousticwindows. The [place] right kidney measures 11.6 cm in length. [...] at 10/31/2024 10:35 AM EDT us Beata Garland Evens [employer]ANCE SALES AGENT IM US ORDERABLES Final R esult * [...] EXAM: US ABDOMEN LIMITED EXAM: US DUPLEX [id number] COMPLETE INDICATION: Post-op liver transplant COMPARISON: None [...] visualized secondary to poor acoustic windows. The [place] right kidney measures 11.6 cm in length. [...] EXAM: US ABDOMEN LIMITED EXAM: US DUPLEX [id number] COMPLETE INDICATION: Post-op liver transplant COMPARISON: None [...] well visualized secondary to poor acousticwindows. The [place] right kidney measures 11.6 cm in length. [...] 10/31/2024 10:35 AM EDT us Beata Horner [employer] INSURANCE SALES AGENT IMG US ORDERABLES Final R esult * [...] 10/31/2024 10:29 AM EDT us Beata Horner [employer] INSURANCE SALES AGENT IMG US ORDERABLES Final R esult * Prepare RBC, leukoreduced, 1 Units (10/29/2024 6:16 AM EDT) Only the most recent of7 resultswithin the time period is included. Product Code Y2622W80 HCLL Unit Number [id number] HCLL Dispense Status Presumed Transfused_PT HCLL Blood Expiration Date [id number] [facility] C[facility] [id number] [facility] Blood Bank Product Shay Guzmán MD BLOOD BANK PRODUCT O RDERABLES Final Result HCLL * (ABNORMAL) TEG-Bypass/ECMO/Liver HN (Factor function, Platelet/Fibrin Clot Strength w/Clot Breakdown, Heparinase In All Channels) (10/29/2024 5:07 AM EDT) Only the most recent of13 resultswithin the time period is included. Citrated Kaolin Reaction Time (TEGECMOLIVER) 8.9 4.6 - 9.1 minutes 10/29/2024 7:04 AM EDT [facility] Citrated Kaolin W/Heparinase Reaction Time (TEGECMOLIVER) 7.4 4.3 - 8.3 minutes 10/29/2024 7:04 AM EDT [facility] Citrated Kaolin Maximum Amplitude (TEGECMOLIVER) 52.9 52.0 - 69.0 mm 10/29/2024 7:04 AM EDT [facility] Citrated Functional Fibrinogen W/Heparinase Maximum Amplitude(TEGEC MOLIVER) 20.7 15.0 - 34.0 mm 10/29/2024 7:04 AM EDT [facility] Citrated Rapid Teg W/Heparinase Maximum Amplitude (TEGECMOLIVER) 49.7(L) 53.0 - 69.0 mm 10/29/2024 7:04 AM EDT [facility] Citrated Kaolin w/Heparinase Percent Lysis (TEGECMOLIVER) 0.0 0.0 - 3.2 % 10/29/2024 7:04 AM EDT [facility] Whole Blood (Citrate) 10/29/2024 5:07 AM EDT 10/29/2024 5:10 AM EDT Kemar Sahni MD LAB BLOOD ORDERABLES Final Result Performing Organization Address City/[facility]/ZIP Co de Phone Number [facility] [address] * Transfuse RBC Transfusion Rate: [...] - 2.2 mmol/L 10/28/2024 11:37 AM EDT [facility] Plasma 10/28/2024 11:0 9 AM EDT 10/28/2024 11:15 AM EDT us Carlos Marks MD LAB BLOOD ORDERABLES Final Result Performing Organization Address City/[facility]/ZIP Co de Phone Number [facility] [address] * Prepare Platelets, leukoreduced (10/28/2024 6:15 AM EDT) Only the most recent of5 resultswithin the time period is included. Product Code S1389Y13 HCLL Unit Number [id number] HCLL Dispense Status Presumed Transfused_PT HCLL Blood Expiration Date HCLL Coding System [id number] HCLL Product Code C9949B49 HCLL Unit Number [id number] HCLL Dispense Status Presumed Transfused_PT HCLL Blood Expiration Date [id number] HCLL Coding System [id number] HCLL us Attending Provider Unknown BLOOD BANK PRODUCT OR DERABLES Final Result HCLL * Prepare Fresh Frozen Plasma (10/28/2024 6:15 AM EDT) Only the most recent of5 resultswithin the time period is included. Product Code L7090W47 HCLL Unit Number [id number] HCLL Dispense Status Released from Crossmatch_RE HCLL Blood Expiration Date HCLL Coding System GUZE261 HCLL Product Code H3896Q91 HCLL Unit Number [id number] HCLL Dispense Status Presumed Transfused_PT HCLL Blood Expiration Date HCLL Coding System ZMAR301 HCLL Product Code K6108S23 HCLL Unit Number [id number] HCLL Dispense Status Released from Crossmatch_RE HCLL Blood Expiration Date HCLL Coding System [id number] HCLL Product Code Z8012S92 HCLL Unit Number [id number] HCLL Dispense Status Presumed Transfused_PT HCLL Blood Expiration Date HCLL Coding System DJPS376 HCLL Product Code N2651V10 HCLL Unit Number [id number] HCLL Dispense Status Released from Crossmatch_RE HCLL Blood Expiration Date HCLL Coding System TEDN058 HCLL Attending Provider Unknown BLOOD BANK PRODUCT OR DERABLES Final Result HCLL * Prepare Cryoprecipitate, 1 Units (10/28/2024 6:15 AM EDT) Only the most recent of4 resultswithin the time period is included. Product Code D2865I39 HCLL Unit Number [id number] HCLL Dispense Status Presumed Transfused_PT HCLL Blood Expiration Date HCLL Coding System [id number] HCLL Product Code H5067D81 HCLL Unit Number [id number] HCLL Dispense Status Presumed Transfused_PT HCLL Blood Expiration Date HCLL Coding System CHLI839 HCLL Blood Bank Product John Pina MD BLOOD BANK PRODUCT ORDERABLES F inal Result Performing Organization Address City/[facility] Co de Phone Number HCLL * (ABNORMAL) Blood Gas, Arterial, STAT (10/27/2024 2:40 PM EDT) Only the most recent of6 resultswithin the time period is included. O2 Sat, Arterial 98 10/27/2024 2:46 PM EDT [facility] FIO2 RA 10/27/2024 2:46 PM EDT [facility] pH, Arterial 7.37 7.35 - 7.45 10/27/2024 2:46 PM EDT [facility] pCO2, Arterial 35 35 - 45 mm Hg 10/27/2024 2:46 PM EDT [facility] pO2, Arterial 92 80 - 100 mm Hg 10/27/2024 2:46 PM EDT [facility] HCO3, Arterial 21(L) 22 - 26 mmol/L 10/27/2024 2:46 PM EDT [facility] CO2 Content,Arteri al 21(L) 23 - 27 mmol/L 10/27/2024 2:46 PM EDT [facility] Base Excess, Arterial -4.6(L) -2.0 - 3.0 mmol/L 10/27/2024 2:46 PM EDT [facility] %HBO2, Arterial 95.4 95.0 - 98.0 % 10/27/2024 2:46 PM EDT [facility] Carboxyhemoglo bin, Arterial 1.6 % 10/27/2024 2:46 PM EDT [facility] Comment: CARBOXYHEMOGLOBIN (CO) REFERENCE RANGES: Non-Smokers: <2 % Smokers: <8 % TOXIC: >20 % Methemoglobin, Arterial 1.0 0.0 - 1.5 % 10/27/2024 2:46 PM EDT [facility] Reduced hemoglobin, Arterial 2.1 0.0 - 5.0 % 10/27/2024 2:46 PM EDT [facility] Blood, Arterial 10/27/2024 2 :40 PM EDT 10/27/2024 2:44 PM EDT Narrative [facility] - 10/27/2024 2:46 PM EDT Post extubation us John Coulter MD LAB BLOOD ORDERABLES Final R esult Performing Organization Address City/State/[facility] Co de Phone Number [facility] [address] * CARISA Rhythm Strip - Scan [...] 10/27/2024 9:22 AM EDT John Coulter MD [facility] ORDER PAL Final Result * (ABNORMAL) Katie-Watkins virus VCA IgG Antibody (10/27/2024 8:00 AM EDT) EBV VCA IgG Positive( A) Negative 10/27/2024 11:30 AM EDT [facility] Comment:Presence of detectab le VCA IgG antibodies. 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 EBV IGG NUM 314.00(H) 0.00 - 17.99 U/mL 10/27/2024 11:30 AM EDT [facility] Serum 10/27/2024 8:00 AM EDT 10/27/2024 8:20 AM EDT Kemar Sahni MD LAB BLOOD ORDERABLES Final Result Performing Organization Address City/[facility] Co de Phone Number [facility] [address] [facility]. [address] * Hemoglobin A1c (10/27/2024 8:00 AM EDT) Only the most recent of2 resultswithin the time period is included. Hemoglobin A1C 5.0 4.0 - 5.6 % 10/27/2024 11:12 AM EDT [facility] Comment: Hemoglobin A1c Interpretation [...] BLOOD ORDERABLES Final Result Performing Organization Address City/[facility]/ZIP Co de Phone Number [facility] [address] [facility]. [address] * X-ray Abdomen AP view (10/27/2024 [...] O2Sat (ABGP) 100 10/27/2024 6:17 AM EDT [facility] pH (ABGP) 7.30(L) 7.35 - 7.45 10/27/2024 6:17 AM EDT [facility] PCO2 (ABGP) 41 35 - 45 mm Hg 10/27/2024 6:17 AM T [facility] PO2 (ABGP) 192(H) 80 - 100 mm Hg 10/27/2024 6:17 AM EDT [facility] HCO3 (ABGP) 21(L) 22 - 26 mmol/L 10/27/2024 6:17 AM T [facility] CO2 Content (ABGP) 22(L) 23 - 27 mmol/L 10/27/2024 6:17 AM T [facility] Base Excess (ABGP) -5.7(L) -2.0 - 3.0 mmol/L 10/27/2024 6:17 AM T [facility] Sodium (ABGP) 138 136 - 146 mEq/L 10/27/2024 6:17 AM T [facility] Potassium (ABGP) 3.3(L) 3.5 - 5.0 mEq/L 10/27/2024 6:17 AM [facility] Comment:In the event of in-v itro hemolysis, potassium results may be falsely elevated. Always interpret lab results in conjunction with clinical findings. If hemolysis is suspected, a serum sample may be collected for repeat assessment of potassium. Calcium, Free (ABGP) 5.28 4.50 - 5.30 mg/dL 10/27/2024 6:17 AM EDT [facility] Glucose (ABGP) 112(H) 70 - 100 mg/dL 10/27/2024 6:17 AM [facility] Comment:There is interferenc e with whole blood glucose results on this method when Hematocrit is <25% or >60%. HCT (ABGP) 20.0(L) 40.0 - 52.0 % 10/27/2024 6:17 AM EDT [facility] HGB (ABGP) 6.5(L) 14.0 - 18.0 g/dL 10/27/2024 6:17 AM EDT [facility] %HBO2 (ABGP) 96.8 95.0 - 98.0 % 10/27/2024 6:17 AM EDT [facility] Carboxyhgb (ABGP) 2.1 % 025 6:17 AM EDT [facility] Comment: CARBOXYHEMOGLOBIN (CO) REFERENCE RANGES: Non-Smokers: <2 % Smokers: <8 % TOXIC: >20 % Methemoglobin (ABGP) 1.0 0.0 - 1.5 % 10/27/2024 6:17 AM EDT [facility] Reduced Hemoglobin (ABGP) 0.2 0.0 - 5.0 % 10/27/2024 6:17 AM EDT [facility] Lactic Acid (ABGP) 0.4(L) 0.5 - 1.6 mmol/L 10/27/2024 6:17 AM EDT [facility] Blood, Arterial 10/27/2024 6 :09 AM EDT 10/27/2024 6:14 AM EDT us Ben Blake MD LAB BLOOD ORDERABLES Final Re sult [facility] [address] * Transfuse Fresh Frozen Plasma (10/27/2024 5:49 AM EDT) Only the most recent of15 resultswithin the time period is included. us Ben Blake MD NURSING TREATMENT ORDERABLES - BLOOD ADMIN Final Result * Transfuse Cryoprecipitate (10/27/2024 4:56 AM EDT) Only the most recent of9 resultswithin the time period is included. us Ben Blake MD NURSING TREATMENT ORDERABLES - BLOOD ADMIN Final Result * Hox - HLA Antibody Report (10/27/2024 4:16 AM EDT) 10/27/2024 4:16 AM EDT us Abdulkadir Gaspar MD LAB BLOOD ORDERABLES Final Resul t [facility] [address] [place] [address] * Surgical Pathology Exam (10/27/2024 2:38 AM EDT) Only the most recent of2 resultswithin the time period is included. Tissue LEFT KIDNEY STRUCTURE / Unknown 10/27/2024 2:38 AM EDT Narrative [facility] - 10/27/2024 12:00 AM EDT CASE: [id number] PATIENT: BLAIR ANDERSON Clinical History: Transplant kidney with bile duct reconstruction Pre-Operative Diagnosis: Acute kidney injury superimposed on CKD Post-Operative Diagnosis: None Given Specimen(s) Submitted: A. baseline renal biopsy ; B. right lobe liver biopsy; C. left lobe liver biopsy CPT Code(s): 49858 X 1; 73143 X 2; 90781 X 4 Additional Information: FINAL DIAGNOSIS: A. [...] is located at [facility], [address] [place] [address], [id number], , CLIA ID: [id number] ADDENDUM: A. Kidney, allograft, baseline, wedge biopsy: [...] is located at [facility], [address] [place] [address], [id number], , CLIA ID: [id number] us Kemar Sahni MD PATHOLOGY/CYTOLOGY ORDERABL ES Edited Result - Final [facility] * Routine Culture plus Stain (10/27/2024 2:15 AM EDT) Only the most recent of2 resultswithin the time period is included. Gram Stain Result No Polymorphonuclear Leukocytes Seen [facility] Gram Stain Result No Organisms Seen; [facility] Culture Result No Growth After 3 Days [facility] Fluid SPECIMEN FROM KIDNEY / Unknown 10/27/2024 2:15 AM EDT 10/27/2024 4:24 AM EDT Narrative [facility] - 10/30/2024 9:26 AM EDT 1) perfusate us Harvey Domínguez III, MD MICROBIOLOGY - GENE RAL ORDERABLES Final Result Performing Organization Address [facility] Co de Phone Number [facility] [address] [place] [address]. [address] * Fungus culture (10/27/2024 2:15 AM EDT) Culture Result No Fungus Isolated At 4 Weeks [facility] Fluid SPECIMEN FROM KIDNEY / Unknown 10/27/2024 2:15 AM EDT 10/27/2024 4:24 AM EDT Narrative [facility] - 11/24/2024 7:52 AM EDT 1) perfusate us Harvey Domínguez III, MD MICROBIOLOGY - GENE RAL ORDERABLES Final Result Performing Organization Address City/[facility] Co de Phone Number [facility] [address] [place] [address]. [address] * Anaerobic culture (10/27/2024 2:15 AM EDT) Culture Result No Anaerobes Isolated in 5 Days [facility] Fluid SPECIMEN FROM KIDNEY / Unknown 10/27/2024 2:15 AM EDT 10/27/2024 4:24 AM EDT Narrative [facility] - 10/31/2024 11:43 AM EDT 1) perfusate us Harvey Domígnuez III, MD MICROBIOLOGY - GENE [facility] ORDERABLES Final Result [facility] [address] [place] [address], [facility] * (ABNORMAL) TEG-Standard Global Hemostasis (Rapid TEG with Heparin Effect, Contains a Baseline TEG) (10/27/2024 1:51 AM EDT) Only the most recent of2 resultswithin the time period is included. [facility] Citrated Kaolin Reaction Time (TEGHEPARINASE) 10.6(H) 4.6 - 9.1 minutes 10/27/2024 2:44 AM EDT [facility] Citrated Rapid Teg Maximum Amplitude (TEGHEPARINASE) 42.3(L) 52.0 - 70.0 mm 10/27/2024 2:44 AM EDT [facility] Citrated Functional Fibrinogen Maximum Amplitude (TEGHEPARINASE) 15.0 15.0 - 32.0 mm 10/27/2024 2:44 AM EDT [facility] Citrated Kaolin W/Heparinase Reaction Time (TEGHEPARINASE) 10.5(H) 4.3 - 8.3 minutes 10/27/2024 2:44 AM EDT [facility] Citrated Kaolin K-Time (TEGHEPARINASE) 2.9(A) 0.8 - 2.1 minutes 10/27/2024 2:44 AM EDT [facility] Citrated Kaolin Angle (TEGHEPARINASE) 60.4(A) 63.0 - 78.0 degrees 10/27/2024 2:44 AM EDT [facility] Citrated Kaolin Maximum Amplitude (TEGHEPARINASE) 42.9(L) 52.0 - 69.0 mm 10/27/2024 2:44 AM EDT [facility] Citrated Functional Fibrinogen- Fibrinogen Level (TEGHEPARINASE) 273.7(L) 278.0 - 581.0 mg/dL 10/27/2024 2:44 AM EDT [facility] Whole Blood (Citrate) 10/27/2024 1:51 AM EDT 10/27/2024 2:03 AM EDT us John Pina MD LAB BLOOD ORDERABLES Final Resu lt Performing Organization Address [facility]/ZIP Co de Phone Number [facility] [address] [place] [address], [facility] * Calcium Free, Serum (10/27/2024 12:13 AM EDT) Only the most recent of2 resultswithin the time period is included. Free Calcium, Ser 5.20 4.40 - 5.40 mg/dL 10/27/2024 12:37 AM EDT [facility] Comment:Free calcium levels vary inversely with pH by approximately 5% for each 0.1 unit of pH change. Assay results have been normalized to pH = 7.40. Serum 10/27/2024 12:1 3 AM EDT 10/27/2024 12:29 AM EDT Narrative [facility] - 10/27/2024 12:37 AM EDT This test has been developed and its performance characteristics determined by [facility] which is certified under [...] lt Performing Organization Address [facility]/ZIP Co de Phone Number [facility] [address] [place] [address], [facility] * Repeat Crossmatch (Recipient Sample) (10/26/2024 4:42 PM EDT) Repeat Cx - Recipient The request and specimen(s) for this test have been received and transported to the [facility] at [address] [place] [address]. The [facility] will report results directly to the client. 10/26/2024 4:49 PM EDT [facility] Whole Blood 10/26/2024 4:42 PM EDT 10/26/2024 4:49 PM EDT Narrative [facility] - 10/26/2024 4:49 PM EDT To be sent to [facility] for Donor UNOS#[id number] cross match with Blair Anderson Sveta Mojica MD LAB BLOOD ORDERABLES Final Resu lt [facility] [address] * (ABNORMAL) Fibrinogen (10/26/2024 6:10 AM EDT) Only the most recent of2 resultswithin the time period is included. Fibrinogen 160(L) 218 - 406 mg/dL 10/26/2024 6:41 AM EDT [facility] Plasma 10/26/2024 6:10 AM EDT 10/26/2024 6:26 AM EDT Sveta Mojica MD LAB BLOOD ORDERABLES Final Resu lt Performing Organization Address [facility] Co de Phone Number [facility] [address] [facility] * (ABNORMAL) POC INR (10/26/2024 5:16 AM EDT) Only the most recent of6 resultswithin the time period is included. Prothrombin Time INR, POC 2.4(H) 0.8 - 1.4 10/27/2024 6:51 AM EDT [facility] Comment: Test results may [...] TEST ORDERABLES Final Result Performing Organization Address City/[facility]/ZIP Co de Phone Number [facility] [address] * POC Lactate (10/26/2024 5:14 AM EDT) Only the most recent of6 resultswithin the time period is included. POC Lactate 1.76 0.50 - 2.20 mmol/L 10/26/2024 5:31 AM EDT [facility] Blood, Arterial 10/26/2024 5 :14 AM EDT 10/26/2024 5:31 AM EDT us Harvey Domínguez III, MD POINT OF CARE TEST ORDERABLES Final Result Performing Organization Address [facility] Co de Phone Number [address] * POC TCO2 (10/26/2024 5:14 AM EDT) Only the most recent of6 resultswithin the time period is included. POC TCO2, Arterial 23 23 - 27 mmol/L 10/26/2024 5:31 AM EDT [facility] Blood, Arterial 10/26/2024 5 :14 AM EDT 10/26/2024 5:31 AM EDT us Harvey Domínguez III, MD POINT OF CARE TEST ORDERABLES Final Result Performing Organization Address City/[facility] Co de Phone Number [facility] [address] [place] [address]. [address] * POC Sodium (10/26/2024 5:14 AM EDT) Only the most recent of6 resultswithin the time period is included. POC Sodium 138 136 - 146 mmol/L 10/26/2024 5:31 AM EDT [facility] Blood, Arterial 10/26/2024 5 :14 AM EDT 10/26/2024 5:31 AM EDT us Harvey Domínguez III, MD POINT OF CARE TEST ORDERABLES Final Result [facility] [address] [facility] * (ABNORMAL) POC Potassium (10/26/2024 5:14 AM EDT) Only the most recent of6 resultswithin the time period is included. POC Potassium 2.8(LL) 3.5 - 5.3 mmol/L 10/26/2024 5:31 AM EDT [facility] Blood, Arterial 10/26/2024 5 :14 AM EDT 10/26/2024 5:31 AM EDT Harvey Domínguez III, MD POINT OF CARE TEST ORDERABLES Final Result Performing Organization Address [facility] de Phone Number [facility] [address] [place] [address]. [address] * (ABNORMAL) POC PO2 (10/26/2024 5:14 AM EDT) Only the most recent of6 resultswithin the time period is included. POC pO2, Arterial 133(H) 80 - 100 mm Hg 10/26/2024 5:31 AM EDT [facility] Blood, Arterial 10/26/2024 5 :14 AM EDT 10/26/2024 5:31 AM EDT Harvey Domínguez III, MD POINT OF CARE TEST ORDERABLES Final Result Performing Organization Address [facility] de Phone Number [facility] [address] [place] [address]. [address] * POC PCO2 (10/26/2024 5:14 AM EDT) Only the most recent of6 resultswithin the time period is included. POC pCO2, Arterial 45 35 - 45 mm Hg 10/26/2024 5:31 AM EDT [facility] Blood, Arterial 10/26/2024 5 :14 AM EDT 10/26/2024 5:31 AM EDT us Harvey Domínguez III, MD POINT OF CARE TEST ORDERABLES Final Result Performing Organization Address City/[facility] Co de Phone Number [facility] [address] * (ABNORMAL) POC O2 SAT (10/26/2024 5:14 AM EDT) Only the most recent of6 resultswithin the time period is included. POC O2 Saturation, Arterial 99(H) 95 - 98 % 10/26/2024 5:31 AM EDT [facility] Blood, Arterial 10/26/2024 5 :14 AM EDT 10/26/2024 5:31 AM EDT us Harvey Domínguez III, MD POINT OF CARE TEST ORDERABLES Final Result Performing Organization Address [facility] Co de Phone Number [facility] [address] [facility]. [address] * POC HCO3 (10/26/2024 5:14 AM EDT) Only the most recent of6 resultswithin the time period is included. POC HCO3, Arterial 22 22 - 26 mmol/L 10/26/2024 5:31 AM EDT [facility] Blood, Arterial 10/26/2024 5 :14 AM EDT 10/26/2024 5:31 AM EDT Harvey Domínguez III, MD POINT OF CARE TEST ORDERABLES Final Result Performing Organization Address City/[facility]/ZIP Co de Phone Number [facility] [address] [facility]. [address] * POC Chloride (10/26/2024 5:14 AM EDT) Only the most recent of6 resultswithin the time period is included. POC Chloride 104 98 - 110 mmol/L 10/26/2024 5:31 AM EDT [facility] Blood, Arterial 10/26/2024 5 :14 AM EDT 10/26/2024 5:31 AM EDT us Harvey Domínguez III, MD POINT OF CARE TEST ORDERABLES Final Result Performing Organization Address City/[facility] Co de Phone Number [facility] [address] [facility]. [address] * (ABNORMAL) POC Base Excess (10/26/2024 5:14 AM EDT) Only the most recent of6 resultswithin the time period is included. POC Base Excess, Arterial -5(L) -2 - 3 mmol/L 10/26/2024 5:31 AM EDT [facility] Blood, Arterial 10/26/2024 5 :14 AM EDT 10/26/2024 5:31 AM EDT us Harvey Domínguez III, MD POINT OF CARE TEST ORDERABLES Final Result Performing Organization Address [facility] Co de Phone Number [facility] [address] [facility]. [address] * POC Anion Gap (10/26/2024 5:14 AM EDT) Only the most recent of6 resultswithin the time period is included. POC Anion Gap, Arterial 12 3 - 16 mmol/L 10/26/2024 5:31 AM EDT [facility] Blood, Arterial 10/26/2024 5 :14 AM EDT 10/26/2024 5:31 AM EDT Harvey Domínguez III, MD POINT OF CARE TEST ORDERABLES Final Result Performing Organization Address City/[facility] Co de Phone Number [facility] [address] [facility]. [address] * POC Sample Type (10/26/2024 5:14 AM EDT) Only the most recent of6 resultswithin the time period is included. POC Sample Type Arterial 10/26/2024 5:31 AM EDT [facility] Blood, Arterial 10/26/2024 5 :14 AM EDT 10/26/2024 5:31 AM EDT us Harvey Domínguez III, MD POINT OF CARE TEST ORDERABLES Final Result [facility] [address] [facility]. [address] * (ABNORMAL) POC pH (10/26/2024 5:14 AM EDT) Only the most recent of6 resultswithin the time period is included. POC pH, Arterial 7.29(L) 7.35 - 7.45 10/26/2024 5:31 AM EDT [facility] Blood, Arterial 10/26/2024 5 :14 AM EDT 10/26/2024 5:31 AM EDT us aHrvey Domínguez III, MD POINT OF CARE TEST ORDERABLES Final Result [facility] [address] [facility]. [address] * (ABNORMAL) POC hematocrit (10/26/2024 5:14 AM EDT) Only the most recent of6 resultswithin the time period is included. POC Hematocrit 28.0(L) 40 - 52 % 10/26/2024 5:31 AM EDT [facility] Blood, Arterial 10/26/2024 5 :14 AM EDT 10/26/2024 5:31 AM EDT us Harvey Domínguez III, MD POINT OF CARE TEST ORDERABLES Final Result [facility] [address] * (ABNORMAL) POC Ionized Calcium (10/26/2024 5:14 AM EDT) Only the most recent of6 resultswithin the time period is included. POC Ionized Calcium 5.50(H) 4.50 - 5.30 mg/dL 10/26/2024 5:31 AM EDT [facility] Blood, Arterial 10/26/2024 5 :14 AM EDT 10/26/2024 5:31 AM EDT us Harvey Domínguez III, MD POINT OF CARE TEST ORDERABLES Final Result Performing Organization Address City/[facility] Co de Phone Number [facility] [address] [facility] * (ABNORMAL) POC Glucose (10/26/2024 5:14 AM EDT) Only the most recent of6 resultswithin the time period is included. POC Glucose, Arterial 183(H) 70 - 100 mg/dL 10/26/2024 5:31 AM EDT [facility] Blood, Arterial 10/26/2024 5 :14 AM EDT 10/26/2024 5:31 AM EDT us Harvey Domínguez III, MD POINT OF CARE TEST ORDERABLES Final Result Performing Organization Address [facility] de Phone Number [facility] [address] [facility]. [address] * (ABNORMAL) POC Hemoglobin (10/26/2024 5:14 AM EDT) Only the most recent of6 resultswithin the time period is included. POC Hemoglobin 9.5(L) 14.0 - 18.0 g/dL 10/26/2024 5:31 AM EDT [facility] Blood, Arterial 10/26/2024 5 :14 AM EDT 10/26/2024 5:31 AM EDT us Harvey Domínguez III, MD POINT OF CARE TEST ORDERABLES Final Result Performing Organization Address City/[facility] Co de Phone Number [facility] [address] * (ABNORMAL) TEG-Global With Lysis (Baseline TEG with LY30, Will NOT Show Heparin Effect) (53:31 AM EDT) Citrated Kaolin Reaction Time (TEGLYSIS) 6.8 4.6 - 9.1 minutes 10/26/2024 5:02 AM EDT [facility] Citrated Rapid Teg Maximum Amplitude (TEGLYSIS) <40.0(L) 52.0 - 70.0 mm 10/26/2024 5:02 AM EDT [facility] Citrated Functional Fibrinogen Maximum Amplitude (TEGLYSIS) <4.0(L) 15.0 - 32.0 mm 10/26/2024 5:02 AM EDT [facility] Citrated Kaolin Percent Lysis (TEGLYSIS) 1.4 0.0 - 2.6 % 10/26/2024 5:02 AM EDT [facility] Whole Blood (Citrate) 10/26/2024 3:31 AM EDT 10/26/2024 3:40 AM EDT us Eber Quinones MD LAB BLOOD ORDERABLES Fin al Result [facility] [address] * CENTRAL LINE SINGLE LUMEN PERFORMABLE (10/25/2024 11:13 PM EDT) Narrative Ben Blake MD - 10/25/2024 11:13 PM EDT Ben Blake MD 10/26/2024 7:45 PM [place] Emily Cath Date/Time: 10/25/2024 11:13 PM Performed [...] of3 resultswithin the time period is included. [facility] Anti-HAV Total (IgG + IgM) Nonreactive 10/25/2024 11:13 PM EDT [facility] Serum 10/25/2024 10:1 7 PM EDT 10/25/2024 10:17 PM EDT Narrative [facility] - 10/25/2024 11:13 PM EDT HAV antibodies not detected Aysha Gill MD LAB BLOOD ORDERABLES F inal Result [facility] [address] [place] [address], [facility] * Iron Studies (Iron + TIBC) (10/25/2024 10:17 PM EDT) Only the most recent of2 resultswithin the time period is included. [facility] Iron 128 50 - 212 ug/dL 10/25/2024 10:44 PM EDT [facility] % Iron Saturation SEE COMMENT 15.0 - 55.0 % 10/25/2024 10:44 PM EDT [facility] Comment:Unable to calculate result because contributing result outside reportable range.. TIBC SEE COMMENT 261 - 462 ug/dL 10/25/2024 10:44 PM EDT [facility] Comment:Unable to calculate result because contributing result outside reportable range.. Serum 10/25/2024 10:1 7 PM EDT 10/25/2024 10:17 PM EDT us Aysha Gill MD LAB BLOOD ORDERABLES F inal Result Performing Organization Address [facility] Co de Phone Number [facility] [address] [facility] * Hepatitis B Core Antibody (10/25/2024 10:17 PM EDT) Pathologist [facility] Hep B Core Total Ab Nonreactive Nonreactive 10/25/2024 11:07 PM EDT [facility] Comment:Health Department no tified in accordance with reportable infectious disease guidelines. Serum 10/25/2024 10:1 7 PM EDT 10/25/2024 10:17 PM EDT Narrative [facility] - 10/25/2024 11:07 PM EDT A nonreactive final interpretation indicates that anti-HBc antibodies were not detected in the sample; it is possible that the individual is not infected with HBV. us Aysha Gill MD LAB BLOOD ORDERABLES F inal Result Performing Organization Address City/[facility]/ZIP Co de Phone Number [facility] [address] [facility] * Hepatitis C Antibody (10/25/2024 10:17 PM EDT) Only the most recent of3 resultswithin the time period is included. HCV Ab Nonreactive Nonreactive 10/25/2024 11:16 PM EDT [facility] Comment:Health Department no tified in accordance with reportable infectious disease guidelines. Serum 10/25/2024 10:1 7 PM EDT 10/25/2024 10:17 PM EDT Narrative [facility] - 10/25/2024 11:16 PM EDT Antibodies to HCV not detected; does not exclude the possibility of exposure to HCV. us Aysha Gill MD LAB BLOOD ORDERABLES F inal Result Performing Organization Address City/[facility]/ZIP Co de Phone Number [address] * HIV 1+2 Antibody/Antigen with Reflex (10/25/2024 10:17 PM EDT) Only the most recent of2 resultswithin the time period is included. Pathologist [facility] HIV 1+2 AB/AGN Nonreactive Nonreactive 10/25/2024 11:03 PM EDT [facility] Serum 10/25/2024 10:1 7 PM EDT 10/25/2024 10:16 PM EDT Narrative [facility] - 10/25/2024 11:03 PM EDT \HIVRNR us Aysha Gill MD LAB BLOOD ORDERABLES F inal Result Performing Organization Address [facility] Co de Phone Number [facility] [address] [place] [address]. [address] * (ABNORMAL) Hepatitis B Surface Antibody, Quantitati (10/25/2024 10:17 PM EDT) Only the most recent of3 resultswithin the time period is included. HBSAB NUMBER 10.70(H) 0.00 - 9.99 mIU/mL 10/25/2024 11:52 PM EDT [facility] Hep B S Ab Equivocal (A) Nonreactive 10/25/2024 11:52 PM EDT [facility] Serum 10/25/2024 10:1 7 PM EDT 10/25/2024 10:17 PM EDT us Aysha Gill MD LAB BLOOD ORDERABLES F inal Result Performing Organization Address City/[facility]/ZIP Co de Phone Number [facility] [address] [facility]. [address] * Hepatitis B surface antigen (10/25/2024 10:17 PM EDT) Only the most recent of3 resultswithin the time period is included. Hep B Surface Ag Nonreactive Nonreactive 10/25/2024 11:12 PM EDT [facility] Comment:Health Department no tified in accordance with reportable infectious disease guidelines. Serum 10/25/2024 10:1 7 PM EDT 10/25/2024 10:17 PM EDT Narrative [facility] - 10/25/2024 11:12 PM EDT Specimen is considered negative for HBsAg. us Aysha Gill MD LAB BLOOD ORDERABLES F inal Result Performing Organization Address [facility] Co de Phone Number [facility] [address] [facility]. [address] * (ABNORMAL) APTT, NO ANTICOAGULANT (10/25/2024 10:17 PM EDT) aPTT 41.7(H) 25.5 - 35.0 seconds 10/25/2024 10:36 PM EDT [facility] Plasma 10/25/2024 10:1 7 PM EDT 10/25/2024 10:17 PM EDT Aysha Gill MD LAB BLOOD ORDERABLES F inal Result [facility] [address] * PTH (10/25/2024 10:17 PM EDT) PTH 36.0 12.0 - 88.0 pg/mL 10/25/2024 11:01 PM EDT [facility] Serum 10/25/2024 10:1 7 PM EDT 10/25/2024 10:17 PM EDT us Aysha Gill MD LAB BLOOD ORDERABLES F inal Result Performing Organization Address City/[facility]/ZIP Co de Phone Number [facility] [address] [facility] * (ABNORMAL) Ferritin (10/25/2024 10:17 PM EDT) Only the most recent of2 resultswithin the time period is included. Ferritin 623.2(H) 23.9 - 336.2 ng/mL 10/25/2024 11:02 PM EDT [facility] Serum 10/25/2024 10:1 7 PM EDT 10/25/2024 10:17 PM EDT Aysha Gill MD LAB BLOOD ORDERABLES F inal Result Performing Organization Address [facility] Co de Phone Number [facility] [address] [facility] * (ABNORMAL) Venous Blood Gas, Line/Syringe (10/25/2024 10:00 PM EDT) Only the most recent of3 resultswithin the time period is included. PH-Line Draw 7.38 7.32 - 7.42 10/25/2024 10:08 PM EDT [facility] PCO2-Line Draw 33(L) 41 - 51 mm Hg 10/25/2024 10:08 PM EDT [facility] PO2-Line Draw 33 25 - 40 mm Hg 10/25/2024 10:08 PM EDT [facility] HCO3-Line Draw 20(L) 24 - 28 mmol/L 10/25/2024 10:08 PM EDT [facility] CO2 Content-Line Draw 21(L) 25 - 29 mmol/L 10/25/2024 10:08 PM EDT [facility] Base Excess-Line Draw -5.0(L) -2.0 - 3.0 mmol/L 10/25/2024 10:08 PM EDT [facility] %HBO2-Line Draw 53.8 40.0 - 70.0 % 10/25/2024 10:08 PM EDT [facility] Carboxyhgb-Ludivina e Draw 1.9 % 10/25/2024 10:08 PM EDT [facility] Comment: CARBOXYHEMOGLOBIN (CO) REFERENCE RANGES: Non-Smokers: <2 % Smokers: <8 % TOXIC: >20 % Methemoglobin- Line Draw 0.2 0.0 - 1.5 % 10/25/2024 10:08 PM EDT [facility] Reduced Hemoglobin-Ludivina e Draw 44.1(H) 0.0 - 5.0 % 10/25/2024 10:08 PM EDT [facility] Venous, Line Draw 10/25/2024 10:00 PM EDT 10/25/2024 10:04 PM EDT Aysha Gill MD LAB BLOOD ORDERABLES F inal Result Performing Organization Address [facility] Co de Phone Number [address] * Donor Specific Antibody (DSA) (10/25/2024 10:00 PM EDT) AntiDonor Antibodies The request and specimen(s) for this test have been received and transported to the [facility] [place] at [address] [place] [address]. The [facility] will report results directly to the client. 10/25/2024 10:20 PM EDT [facility] Comment:Testing performed by [facility], [facility], [address] [place] [address]. The [facility] report has been forwarded to the appropriate ordering location. Please refer to this report for patient results. Serum 10/25/2024 10:0 0 PM EDT 10/25/2024 10:20 PM EDT Aysha Gill MD LAB BLOOD ORDERABLES F inal Result Performing Organization Address [facility] Co de Phone Number [facility] [address] [place] [address] * Hepatitis C RNA, Quant Reflex to Genotyp (10/25/2024 8:18 PM EDT) Pathologist [facility] International Units Not Detected IU/mL 10/27/2024 11:03 AM EDT [facility] Comment:Test methodology for HCV RNA quantification is an FDA-approved nucleic acid amplification assay. The Lower Limit of Quantitation (LLOQ) is 15 IU/mL. The linear range of the assay is 15-100,000,000 IU/mL. The Limit of Detection (LoD) is 12.0 IU/mL for EDTA plasma. The reference range is Not Detected. IU log10 See Note log 10 IU/mL 10/27/2024 11:03 AM EDT [facility] Comment:HCV RNA not detected . Plasma 10/25/2024 8:18 PM EDT 10/25/2024 10:27 PM EDT Aysha Gill MD LAB BLOOD ORDERABLES F inal Result Performing Organization Address [facility] de Phone Number [facility] [address] [place] [address] * Toxoplasma gondii antibody, IgG (10/25/2024 8:18 PM EDT) Only the most recent of2 resultswithin the time period is included. [facility] Toxoplasma Gondii IgG <3.0 0.0 - 7.1 IU/mL 10/27/2024 7:55 AM EDT [facility] Comment: Negative <7.2 Equivocal 7.2 - 8.7 Positive >8.7 Serum 10/25/2024 8:18 PM EDT 10/27/2024 8:06 AM EDT Narrative [facility] - 10/27/2024 8:06 AM EDT PERFORMED AT: [facility] [id number] IAP DISPLAYS ANALYST: Bassam Khalil, PhD PHONE: [phone] Aysha Gill MD LAB BLOOD ORDERABLES F inal Result Performing Organization Address [facility] Co de Phone Number [facility] [address] [place] [address], [place] * ABO/Rh (10/25/2024 7:46 PM EDT) Only the most recent of5 resultswithin the time period is included. ABO Grouping O 10/25/2024 10:23 PM EDT [facility] Rh Type Positive 10/25/2024 10:23 PM EDT [facility] Blood 10/25/2024 7:46 PM EDT 10/25/2024 9:54 PM EDT Ben Blake MD BLOOD BANK TEST ORDERABLES Fi nal Result [facility] [address] * Antibody Screen (10/25/2024 7:46 PM EDT) Only the most recent of3 resultswithin the time period is included. Antibody Screen Negative 10/25/2024 10:41 PM EDT [facility] Blood 10/25/2024 7:46 PM EDT 10/25/2024 9:54 PM EDT Narrative [facility] - 10/25/2024 10:44 PM EDT Testing performed by [facility] Ben Blake MD BLOOD BANK TEST ORDERABLES Fi nal Result [facility] [address] [facility]. [address] * [facility] - HLA Antibody-Detailed Report (10/22/2024 12:32 PM EDT) 10/22/2024 12:3 2 PM EDT Abdulkadir Gaspar MD LAB BLOOD ORDERABLES Final Resul t [facility] [address] [facility] [place] [address] * HOX - HLA CROSSMATCH + Detailed Antibody (10/20/2024 5:04 PM EDT) 10/20/2024 5:04 PM EDT Abdulkadir Gaspar MD LAB BLOOD ORDERABLES Final Resul t Performing Organization Address [facility] Co de Phone Number [facility] [address] [facility] [place] [address] * [facility]ox - ABO Typing Report (10/20/2024 5:03 PM EDT) 10/20/2024 5:03 PM EDT Abdulkadir Gaspar MD LAB BLOOD ORDERABLES Final Resul t Performing Organization Address [facility] de Phone Number [facility] [address] [facility] [place] [address] * X-ray Comparison Images (10/20/2024 9:10 AM EDT) Only the most recent of7 resultswithin the time period is included. Narrative EXTERNAL - 10/20/2024 9:10 AM EDT Images associated with this accession number were presented to us for comparison to an examination performed here. us Provider Not In System IMG DIAGNOSTIC IMAGING OR DERABLES Final Result Performing Organization Address [facility] de Phone Number EXTERNAL * PRA-HLA Ab Screen (Cytotoxic) (10/15/2024 6:08 AM EDT) [facility] The request and specimen(s) for this test have been received and transported to the [facility] at [address] [place] [address]. The [facility] will report results directly to the client. 10/15/2024 6:42 AM EDT [facility] Comment:The request and spec imen(s) for this test have been received and transported to the [facility] [place] at [address] [place] [address]. The [facility] will report results directly to the client. Serum 10/15/2024 6:08 AM EDT 10/15/2024 6:42 AM EDT Comso Pacheco MD LAB BLOOD ORDERABLES Final Resul t [facility] [address] [facility]. [place] [id number], [facility] * LEFT HEART CATH (10/14/2024 2:09 PM EDT) 10/14/2024 11:4 7 AM EDT Narrative RAD[facility] - 10/14/2024 9:27 PM EDT *[facility]* Cardiac Lead Ramp Agent [address] [address] CATHETERIZATION LAB STUDY Patient: Blair Anderson Age: [...] manner. 3. Right radial artery access. A [id number] Glidesheath - Slender - .021 sheath was [...] + !LV pressure s/d, ed !112/, 22, dP/oh=2187sv Hg/s! + + + !Aortic pressure s/d (m)!106/58 (75) ! + + + ATTESTATION: Dr. Matta was present for the entire procedure. Dr. Jay Quan was the initial author of this report. Prepared and electronically signed by Irving Matta MD [id number] Procedure Note Irving Matta MD - 10/14/2024 *[facility]* Cardiac Lead Ramp Agent [address] [place] [address] CATHETERIZATION LAB STUDY Patient: Blair Anderson Age: [...] manner. 3. Right radial artery access. A [id number] Glidesheath - Slender - .021sheath was advanced [...] complications. Contrast: Omnipaque 350 25ml (total dose). [id number] 125ml (wasted). Radiation: Fluoroscopy time: 15min. Total [...] + !LV pressure s/d, ed !112/1, 22, dP/vt=8619lq Hg/s! + + + !Aortic pressure s/d (m)!106/58 (75) ! + + + ATTESTATION: Dr. Matta was present for the entire procedure. Dr. Jay Quan wasthe initial author of this report. Prepared and electronically signed by Irving Matta MD [id number] [place] [id number] Final Result RADNET * Cardiac Cath Documents [...] mL of GADOBUTROL 1 MMOL/ML INTRAVENOUS SYRINGE ([facility]) administered intravenously COMPARISON: CT 09/03/2024. [...] mL of GADOBUTROL 1 MMOL/ML INTRAVENOUS SYRINGE ([facility])administered intravenously COMPARISON: CT 09/03/2024. Ultrasound 10/07/2024. Outside CT report dated10/.. FINDINGS: Lower Chest: Bandlike signal changes in [...] - 90 ug/dL 10/13/2024 7:16 AM EDT [facility] Comment: HEMOLYSIS EVIDENT. RESULTS MAY BE INFLUENCED. Critical Result [id number] Called to and read back by: KEY MELO RN at: 10/13/2024 07:15:55 by:NISREEN Plasma 10/13/2024 5:35 AM EDT 10/13/2024 6:19 AM EDT Violaun Mays DO LAB BLOOD ORDERABLES Final Resul t Performing Organization Address City/[facility]/ZIP Co de Phone Number [facility] [address] * Vancomycin, random (10/11/2024 3:02 AM EDT) Only the most recent of5 resultswithin the time period is included. Vancomycin Random 13.4 ug/mL 10/11/2024 3:37 AM EDT [facility] Comment:Reference range not established for this test. Plasma 10/11/2024 3:02 AM EDT 10/11/2024 3:08 AM EDT us Jodi FreireD LAB BLOOD ORDERABLES Final Result Performing Organization Address [facility] Co de Phone Number [facility] [address] * IR Paracentesis incl imaging guide [...] diagnostic and therapeutic paracentesis. Bakari Wahl CNP, Crankshaft Straightener Procedure and Findings: The procedure was performed [...] Using ultrasound guidance, a 10 cm, 5-F [facility] catheter was [facility] into the right [...] for diagnostic andtherapeutic paracentesis. Bakari Wahl CNP, Crankshaft Straightener Procedure and Findings: The procedure was performed [...] Using ultrasound guidance, a 10 cm, 5-F [employer] [facility] catheter was placedinto the right lower [...] LAB Gram Stain Result No Organisms Seen; [facility] Culture Result No Growth After 5 Days [facility] Fluid ABDOMEN / Unknown 10/10/2024 1:51 PM EDT 10/10/2024 3:56 PM EDT us Gerri Peterson MD MICROBIOLOGY - GENERAL ORDERABL ES Final Result [facility] [address] * (ABNORMAL) Body fluid cell count (10/10/2024 1:51 PM EDT) Color, Fluid Yellow(A) Colorless, Pale Yellow 10/10/2024 5:29 PM EDT [facility] Clarity, Fluid Clear 10/10/2024 5:29 PM EDT [facility] Neutrophil %, Fluid 9 % 10/10/2024 5:29 PM EDT [facility] Lymphocytes %, Fluid 13 % 10/10/2024 5:29 PM EDT [facility] Mesothelial %, Fluid 6 % 10/10/2024 5:29 PM EDT [facility] Macrophage %, Fluid 72 % 10/10/2024 5:29 PM EDT [facility] RBC, Fluid 2,662 /uL 10/10/2024 4:41 PM EDT [facility] Total Nucleated Cells, Fluid 89 /uL 10/10/2024 4:41 PM EDT [facility] Comment:Total Nucleated Cell s represent WBCs and other nucleated cells in the fluid such as lining cells. Ascitic Fluid ABDOMEN / Unknown 1:51 PM EDT 10/10/2024 3:56 PM EDT us Gerri Peterosn MD BODY FLUIDS AND STOOLS ORDERABL ES Final Result [facility] [address] * UPPER GI ENDOSCOPY (10/10/2024 11:48 AM EDT) 10/10/2024 11:4 8 AM EDT Narrative [facility] - 10/10/2024 12:34 PM EDT [id number] Procedure Date: 10/10/2024 11:48 AM Patient Name: Blair Anderson Date of : 1985 Admit Type: Inpatient Age: 39 Gender: Male Note Status: Finalized Attending MD: Lino Soto MD, [id number] Procedure: Upper GI endoscopy Indications: Gastroesopahgeal variceal [...] verified by the physician, the nurse, the slasher runner and the claims technician in the pre-procedure area in the [...] to hypotension Procedure Code(s): --- Professional --- 82202, GC, Esophagogastroduodenoscopy, flexible, transoral; diagnostic, including collection of specimen(s) by brushing or washing, when performed (separate procedure) Diagnosis Code(s): --- Professional --- I85.00, Esophageal varices without bleeding K76.6, Portal hypertension K31.89, Other diseases of stomach and duodenum CPT copyright 2022 [place]. All rights reserved. The codes documented in this report are preliminary and upon fire protection fabricator review may be revised to meet current [...] 12:10:16 PM Scope Out: 12:17:[address] [place] [address], [id number] us Provider Not In System PROCEDURE/MINOR SURGICAL ORDERABLES Final Result [facility] * ECHO STRESS W/ CONTRAST (10/09/2024 4:37 PM EDT) Anatomical Region Laterality Modality Chest Ultrasound 10/09/2024 2:40 PM EDT Narrative 10/09/2024 6:45 PM EDT * [facility]* [address] [place] [id number] Stress Echocardiogram Patient: Blair Anderson Room: 8142 Height: 76in MR Number: [id number] : 1985 Weight: 262lb Account: [id number] Gender: M BP: 125 / 77 Study Date: 10/09/2024 Age: 39 BSA: 2.48m^2 Referring physician: Gerri Peterson Interpreting physician: Tonya Henriquez MD FELLOW Lisa Jha MD PERFORMING Tonya Henriquez MD GEOTHERMAL OPERATIONS MANAGER [employer] ORDERING Gerri Peterson REFERRING Gerri Peterson ATTENDING Tequila Newton ADMITTING Gómez Blanchard Procedure:STRESS ECHO - PHARMACOLOGIC Order: Indications: Pre-Operative Clearance ([id number]). PMH: EtOH Use Disorder. Risk factors: Hypertension. [...] was augmented by the addition of hand taker down and leg lifts. The infusion was terminated [...] at baseline or with provocation, shows no lgzrc-uz-vfyt atrial level shunt. - Pulmonary arteries: Systolic [...] at baseline or with provocation, shows no zdnkl-qq-ejza atrial level shunt. Pulmonary artery: - Systolic [...] at baseline or with provocation, shows no zhhgs-pu-wsun atrial level shunt. Pericardium: - There is [...] peak heart rate and blood pressure was 05314ym Hg/min. Stress testing did not produce any [...] Reviewed and confirmed by Tonya Henriquez MD [id number]:20 Procedure Note Tonya Henriquez MD - 10/09/2024 * [facility]* [address] [place] [id number] Stress Echocardiogram Patient: Blair Anderson Room: 8142 Height: 76in MR Number: [id number] : 1985 Weight: 262lb Account: [id number] Gender: M BP: 125 / 77 Study Date: 10/09/2024 Age: 39 BSA: 2.48m^2 Referring physician: Gerri Peterson Interpreting physician: Tonya Henriquez MD FELLOW Lisa Jha MD PERFORMING Tonya Henriquez MD GEOTHERMAL OPERATIONS MANAGER [employer] ORDERING Gerri Peterson REFERRING Gerri Peterson Sharice N ADMITTING RussangleGómez Procedure:STRESS ECHO - PHARMACOLOGIC Order: Indications: Pre-Operative Clearance ([id number]). PMH: EtOH Use Disorder. Risk factors: Hypertension. Dyslipidemia. Study data: Height: 76in. 193cm. Weight: 262lb. 118.8kg. The previousstudy was not available, so comparison was made to the report of 07/15/2024. Study status: Routine. Procedure: [facility]. [...] was augmented by the addition of hand taker down and leg lifts. The infusion was terminated [...] at baseline or with provocation, shows no vtevs-gw-rgye atrial level shunt. - Pulmonary arteries: Systolic [...] study at baseline or with provocation, showsno rsnmw-sz-ahrh atrial level shunt. Pulmonary artery: - Systolic [...] at baseline or with provocation, shows no lfvok-aa-clam atrial level shunt. Pericardium: - There is [...] heart rate). The maximal predicted heart rate [id number]. The target heart rate was 152bpm. The target heart rate was achieved.The heart rate response to stress is normal. There is a normal resting blood pressure with an appropriate response to stress. The rate-pressureproduct for the peak heart rate and blood pressure was 16383qw Hg/min. Stress testing did not produce any [...] Reviewed and confirmed by Tonya Henriquez MD [id number] us Gerri Peterson MD CV ECHO ORDERABLES Final Result * Renal Tx Recipient (10/09/2024 4:59 AM EDT) Pathologist [facility] Renal Transplant Recipient The request and specimen(s) for this test have been received and transported to the [facility] at [address] [place] [address]. The [facility] will report results directly to the client. 10/09/2024 7:26 AM EDT [facility] Blood 10/09/2024 4:59 AM EDT 10/09/2024 7:26 AM EDT us Aaron Gonzalez MD LAB BLOOD ORDERABLES Final Resu lt [facility] [address] [place] [address], [facility] * (ABNORMAL) MMR(IgG) Panel (Measles, Mumps, Rubella) (10/08/2024 10:25 AM EDT) Only the most recent of2 resultswithin the time period is included. Pathologist [facility] Mumps IgG Positive 10/08/2024 11:39 AM EDT [facility] MUMPS IGG NUM 99.00(H) 0.0 - 8.9 U/mL 10/08/2024 11:39 AM EDT [facility] Rubella IgG Scr Positive 10/08/2024 11:40 AM EDT [facility] RUB NUM 4.15(H) 0.00 - 0.89 INDEX 10/08/2024 11:40 AM EDT [facility] Rubeola Ab, IgG Positive 10/08/2024 11:39 AM EDT [facility] RUB IGG NUM 273.00(H) 0.00 - 13.40 U/mL 10/08/2024 11:39 AM EDT [facility] Serum 10/08/2024 10:2 5 AM EDT 10/08/2024 10:49 AM EDT Narrative [facility] - 10/08/2024 11:40 AM [...] MD LAB BLOOD ORDERABLES Final Resu lt [facility] [address] [facility] * QuantiFERON TB2 Ag (10/08/2024 10:25 AM EDT) Pathologist [facility] QuantiFERON TB2 Ag Value 0.07 10/10/2024 10:41 AM EDT [facility] Plasma 10/08/2024 10:2 5 AM EDT 10/08/2024 11:05 AM EDT Gerri Peterson MD LAB BLOOD ORDERABLES Final Resu lt [facility] [address] [facility] * QuantiFERON TB1 Ag (10/08/2024 10:25 AM EDT) Pathologist [facility] QuantiFERON TB1 Ag Value 0.06 10/10/2024 10:41 AM EDT [facility] Plasma 10/08/2024 10:2 5 AM EDT 10/08/2024 11:05 AM EDT Gerri Peterson MD LAB BLOOD ORDERABLES Final Resu lt Performing Organization Address City/[facility]/ZIP Co de Phone Number [facility] [address] [facility] * QuantiFERON Nil (10/08/2024 10:25 AM EDT) Pathologist [facility] QuantiFERON Nil 0.06 10:41 AM EDT [facility] Plasma 10/08/2024 10:2 5 AM EDT 10/08/2024 11:05 AM EDT Result [facility] Gerri Pteerson MD LAB BLOOD ORDERABLES Final Resu lt Performing Organization Address [facility] Co de Phone Number [facility] [address] [facility] * QuantiFERON Mitogen (10/08/2024 10:25 AM EDT) [facility] QuantiFERON Interpretation Negative Negative 10/10/2024 10:41 AM EDT [facility] Comment:Negative result geovanny cates [...] 10:41 AM EDT [facility] Plasma 10/08/2024 10:2 5 AM EDT 10/08/2024 11:05 AM EDT Narrative [facility] - 10/10/2024 10:41 AM [...] lt Performing Organization Address [facility] Co de Phone Number [facility] [address] [facility] * (ABNORMAL) Vitamin D 25 Hydroxy (10/08/2024 10:25 AM EDT) Vit D, 25-Hydroxy 7.1(L) 30.0 - 100.0 ng/mL 10/08/2024 11:36 AM EDT [facility] Comment: Vitamin D deficiency has been defined by the [place] of [employer] (IOM) and an Endocrine Society [...] lt Performing Organization Address [facility] Co de Phone Number [facility] [address] [facility] * Reticulocyte Count, Auto (10/08/2024 7:41 AM EDT) Retic Ct Pct 1.35 0.50 - 2.00 % 10/08/2024 9:12 AM EDT [facility] Retic Ct Abs 26,190 25,000 - 90,000 /uL 10/08/2024 9:14 AM EDT [facility] Immature Retic Fract 0.37 0.09 - 0.56 10/08/2024 9:12 AM EDT [facility] Whole Blood 10/08/2024 7:41 AM EDT 10/08/2024 8:51 AM EDT Gómez Blanchard MD LAB BLOOD ORDERABLES Final Res ult [facility] [address] [facility] * (ABNORMAL) Haptoglobin (10/08/2024 7:41 AM EDT) Haptoglobin <30(L) 44 - 215 mg/dL 10/08/2024 8:53 AM EDT [facility] Serum 10/08/2024 7:41 AM EDT 10/08/2024 7:51 AM EDT Kush Posada MD, PhD LAB BLOOD ORDERABLES Final Result [facility] [address] [facility] * (ABNORMAL) Lactate dehydrogenase (10/08/2024 5:36 AM EDT) LD 102(L) 110 - 270 U/L 10/08/2024 8:20 AM EDT [facility] Plasma 10/08/2024 5:36 AM EDT 10/08/2024 7:58 AM EDT Gómez Blanchard MD LAB BLOOD ORDERABLES Final Res ult [facility] [address] [facility] * Enteric Pathogen Panel (10/07/2024 10:50 PM EDT) Pathologist [facility] Campylobacter Group (C. ecoli, C. jejuni, C. trino) Not Detected Not Detected 10/08/2024 4:40 AM EDT [facility] Salmonella species Not Detected Not Detected 10/08/2024 4:40 AM EDT [facility] Shigella species Not Detected Not Detected 10/08/2024 4:40 AM EDT [facility] Vibrio Group (Vibrio cholerae, Vibrio parahaemolyticus) Not Detected Not Detected 10/08/2024 4:40 AM EDT [facility] Yersinia enterocolitica Not Detected Not Detected 10/08/2024 4:40 AM EDT [facility] Shiga toxin 1 Not Detected Not Detected 10/08/2024 4:40 AM EDT [facility] Shiga toxin 2 Not Detected Not Detected 10/08/2024 4:40 AM EDT [facility] Norovirus Not Detected Not Detected 10/08/2024 4:40 AM EDT [facility] Rotavirus Not Detected Not Detected 10/08/2024 4:40 AM EDT [facility] Comment: The Enteric Pathogen [...] FLUIDS AND STOOLS ORDERABLE S Final Result [facility] [address] [place], [place] [address] * Urine Drug Confirmation (10/07/2024 10:50 PM EDT) Only the most recent of2 resultswithin the time period is included. [facility] 10/09/2024 1:33 PM EDT [facility] BENZODIAZEPINES PRESENT 1:33 PM EDT [facility] Nordiazepam 3 ng/mL 10/09/2024 1:33 PM EDT [facility] Temazepam 6 ng/mL 10/09/2024 1:33 PM EDT [facility] CANNABINOIDS NOT PRESENT 10/09/2024 1:33 PM EDT [facility] RUSSIAN LANGUAGE PROFESSOR STIMULANTS NOT PRESENT 1:33 PM EDT [facility] OPIOID ANALGESICS PRESENT 025 1:33 PM EDT [facility] Oxycodone 300 ng/mL 10/09/2024 1:33 PM EDT [facility] Oxymorphone 32 ng/mL 10/09/2024 1:33 PM EDT [facility] Tramadol >1000 ng/mL 10/09/2024 1:33 PM EDT [facility] OPIOID ANTAGONISTS NOT PRESENT 10/09 1:33 PM EDT [facility] SEDATIVES/MUSCLE RELAXANTS NOT PRESENT 10/09/2024 1:33 PM EDT [facility] TRICYCLIC ANTIDEPRESSANTS NOT PRESENT 10/09/2024 1:33 PM EDT [facility] Urine 10/07/2024 10:5 0 PM EDT 10/08/2024 3:00 AM EDT Gerri Peterson MD URINE ORDERABLES Final Result Performing Organization Address City/State/[facility] Co de Phone Number [facility] [address] * Giardia Cryptosporidium Antigens (10/07/2024 10:50 PM EDT) Cryptosporidium Ag Negative Negative 2024 7:59 AM EDT [facility] Giardia Ag Negative Negative 10/08/2024 7:59 AM EDT [facility] Comment: Detection of Giardia and Cryptosporidium antigen is more sensitive and specific than microscopy. Because antigens are shed continuously, repeat testing is rarely warranted. Feces 10/07/2024 10:5 0 PM EDT 10/08/2024 1:53 AM EDT Comment:F us Bisidante Hernandezana maría DOZIER MICROBIOLOGY - GENERAL ORDERABLE S Final Result [facility] [address] [place] [address], [facility] * Comprehensive Drug Screen (10/07/2024 10:50 PM EDT) Only the most recent of2 resultswithin the time period is included. Creatinine, Ur CANCELED mg/dL 10/08/2024 7:09 AM EDT [facility] Comment:The released value 8 7.30 was canceled by YAQUELIN on 10/08/2024 07:09 BARBITURATES CANCELED [facility] Butalbital CANCELED [facility] Phenobarbital CANCELED [facility] Secobarbital CANCELED [facility] BENZODIAZEPINES CANCELED [facility] Alprazolam CANCELED [facility] Clonazepam CANCELED [facility] Diazepam CANCELED [facility] Alpha-Hydroxyalprazo mcknight CANCELED [facility] Lorazepam CANCELED [facility] Midazolam CANCELED [facility] Nordiazepam CANCELED [facility] Oxazepam CANCELED [facility] Temazepam CANCELED [facility] CANNABINOIDS CANCELED [facility] THC-COOH CANCELED [facility] RUSSIAN LANGUAGE PROFESSOR STIMULANTS CANCELED [facility] Cocaine Metabolite(benzoylec gonine) CANCELED [facility] Amphetamine CANCELED [facility] Methamphetamine CANCELED [facility] MDA CANCELED [facility] MDEA CANCELED [facility] Phencyclindine (PCP) CANCELED [facility] OPIOID ANALGESICS CANCELED [facility] Heroin Metabolite(6-RAMONA) CANCELED [facility] Codeine CANCELED [facility] Morphine CANCELED [facility] Hydrocodone CANCELED [facility] Hydromorphone CANCELED [facility] Oxycodone CANCELED [facility] Oxymorphone CANCELED [facility] Meperidine CANCELED [facility] Normeperidine CANCELED [facility] Methadone CANCELED [facility] Methadone Metabolite (EDDP) CANCELED [facility] Tramadol CANCELED [facility] Fentanyl CANCELED [facility] Norfentanyl CANCELED [facility] LAB Sufentanil CANCELED [facility] LAB OPIOID ANTAGONISTS CANCELED [facility] Buprenorphine CANCELED [facility] LAB Norbuprenorphine CANCELED [facility] Naltrexone CANCELED [facility] Naloxone CANCELED [facility] LAB SEDATIVES/MUSCLE RELAXANTS CANCELED [facility] LAB Carisoprodol CANCELED [facility] LAB Meprobamate CANCELED [facility] LAB TRICYCLIC ANTIDEPRESSANTS CANCELED [facility] Amitriptyline CANCELED [facility] LAB Clomipramine CANCELED [facility] LAB Desipram[facility] Doxepin CANCELED [facility] Imipramine CANCELED [facility] Nortriptyline CANCELED [facility] Urine Creatinine CANCELED mg/dL [facility] Nitrite CANCELED [facility] Glutaraldehyde CANCELED [facility] pH CANCELED 10/08/2024 7:09 AM EDT [facility] Comment:The released value 5 .6 was canceled by YAQUELIN on 10/08/2024 07:09 Specific [place] CANCELED 10/09/19 7:09 AM EDT [facility] Comment:The released value 1 .009 was canceled by MABLEE on 10/08/2024 07:09 Bleach CANCELED [facility] Pyridinium Chlorochromate CANCELED [facility] Urine 10/07/2024 10:5 0 PM EDT 10/08/2024 2:07 AM EDT Narrative [facility] - 10/08/2024 7:09 AM EDT See accn [id number] us Gerri Peterson MD URINE ORDERABLES Edited Result - Final [facility] [address] [place] [address], [facility] * (ABNORMAL) Urine Drug Screen Reflex to Confirmation (10/07/2024 10:50 PM EDT) Only the most recent of2 resultswithin the time period is included. Amphetamine, 500 ng/mL Cutoff Negative Negative 10/08/2024 3:00 AM EDT [facility] Barbiturates UR, 300 ng/mL Cutoff Negative Negative 10/08/2024 3:00 AM EDT [facility] Buprenorphine, 5 ng/mL Cutoff Negative Negative 10/08/2024 3:00 AM EDT [facility] Benzodiazepines UR, 300 ng/mL Cutoff Negative Negative 10/08/2024 3:00 AM EDT [facility] Cocaine UR, 300 ng/mL Cutoff Negative Negative 10/08/2024 3:00 AM EDT [facility] Methadone, UR, 300 ng/mL Cutoff Negative Negative 10/08/2024 3:00 AM EDT [facility] Opiates UR, 300 ng/mL Cutoff Negative Negative 10/08/2024 3:00 AM EDT [facility] Oxycodone, 100 ng/mL Cutoff Presumptive Positive(A) Negative 10/08/2024 3:00 AM EDT [facility] Tricyclic Antidepressants, 300 ng/mL Cutoff Negative Negative 10/08/2024 3:00 AM EDT [facility] Comment:This test has been d eveloped and its performance characteristics determined by [facility] which is certified under [...] Cutoff Negative Negative 10/08/2024 3:00 AM EDT [facility] Comment:This is a screening method only and may be associated with false positive and/or false negative results. Results are not definitive without additional confirmatory testing by mass spectrometry. Fentanyl, 2 ng/mL Cutoff Negative Negative 10/08/2024 3:00 AM EDT [facility] Comment:This test has been d eveloped and its performance characteristics determined by [facility] which is certified under [...] PM EDT 10/08/2024 2:08 AM EDT Narrative [facility] - 10/08/2024 3:00 AM EDT CONFIRMATION TO FOLLOW Gerri Peterson MD URINE ORDERABLES Final Result Performing Organization Address [facility] Co de Phone Number [address] * Ova and Parasite Comprehensive w/ Giardia/Crypto (10/07/2024 10:50 PM EDT) O & P Method: Concentration and Trichrome Stain [facility] Results No Amoeba, Ova, Or Parasites Seen. -- O and P examination of additional specimens is recommended only for symptomatic patients, immunosuppressed patients or those with an appropriate travel history. [facility] Feces FECES / Unknown 10/07/2024 1 0:50 PM EDT 10/08/2024 1:53 AM EDT Comment:F Result [facility] Bisi Hernandez DO MICROBIOLOGY - GENERAL ORDERABLE S Final Result Performing Organization Address [facility] Co de Phone Number [facility] [address] [place] [address]. [address] * Hepatitis A IgM (10/07/2024 6:38 PM EDT) Only the most recent of2 resultswithin the time period is included. Hep A IgM Nonreactive Nonreactive 10/07/2024 7:46 PM EDT [facility] Serum 10/07/2024 6:38 PM EDT 10/07/2024 6:52 PM EDT Narrative [facility] - 10/07/2024 7:46 PM EDT IgM anti-HAV not detected. Does not exclude the possibility of exposure to or infection with HAV. Levels of IgM anti-HAV may be below the cut-off in early infection. Gerri Peterson MD LAB BLOOD ORDERABLES Final Resu lt Performing Organization Address [facility] Co de Phone Number [facility] [address] [facility]. [address] * Syphilis Screening (Trepia) (10/07/2024 6:37 PM EDT) Treponema Pallidum Negative Negative 10/07/2024 8:27 PM EDT [facility] Comment: No serological evidence of infection with Treponema pallidum (incubating or early primary syphilis cannot be excluded). Serum 10/07/2024 6:37 PM EDT 10/07/2024 6:50 PM EDT Gerri Peterson MD LAB BLOOD ORDERABLES Final Resu lt Performing Organization Address [facility] Co de Phone Number [facility] [address] [facility] * (ABNORMAL) CMV IgG Antibody (10/07/2024 6:37 PM EDT) CMV IgG Positive(A ) Negative 10/07/2024 8:26 PM EDT [facility] CMV IGG NUM 8.40(H) 0.00 - 0.59 U/mL 10/07/2024 8:26 PM EDT [facility] Serum 10/07/2024 6:37 PM EDT 10/07/2024 6:50 PM EDT Gerri Peterson MD LAB BLOOD ORDERABLES Final Resu lt Performing Organization Address [facility] Co de Phone Number [facility] [address] [facility]. [address] * (ABNORMAL) Alpha 1 Antitrypsin AAT Quant & Mutation (10/07/2024 6:37 PM EDT) A-1 Antitrypsin 99(L) 101 - 187 mg/dL 10/09/2024 4:28 AM EDT [facility] A-1 Antitrypsin Pheno Comment 10/10/2024 4:05 PM EDT [facility] Comment: A1A Phenotype is consistent with a heterozygous phenotype consisting of one M (normal) allele and one allele that cannot be identified at this time. The unknown allele is not consistent with Z (deficient), S (deficient), or F (deficient). MM Phenotype is considered to be normal , producing normal serum levels of [id number]-[id number] inhibitor and not associated with clinical disease. [...] PM EDT 10/10/2024 4:08 PM EDT Narrative [facility] - 10/10/2024 4:08 PM EDT PERFORMED AT: [facility] [address] [id number] IAP DISPLAYS ANALYST: Bassam Khalil, PhD PHONE: [phone] PERFORMED AT: [facility] [address] [id number] IAP DISPLAYS ANALYST: Mandy Abdul MD PHONE: [phone] us Gerri Peterson MD LAB BLOOD ORDERABLES Final Resu lt [facility] [address] [facility] * Strongyloides Ab (10/07/2024 6:37 PM EDT) Strongyloides Ab Negative Negative 10/11/19 11:51 AM EDT [facility] Serum 10/07/2024 6:37 PM EDT 10/10/2024 12:07 PM EDT Narrative [facility] - 10/10/2024 12:07 PM EDT PERFORMED AT: [facility] [address] [id number] IAP DISPLAYS ANALYST: Mandy Abdul MD PHONE: [phone] Gerri Peterson MD LAB BLOOD ORDERABLES Final Resu lt Performing Organization Address City/[facility] Co de Phone Number [facility] [address] [facility] * Ethanol, Serum (10/07/2024 6:37 PM EDT) Only the most recent of2 resultswithin the time period is included. Ethanol <10 0 - 10 mg/dL 10/07/2024 8:36 PM EDT [facility] Serum 10/07/2024 6:37 PM EDT 10/07/2024 6:50 PM EDT Gerri Peterson MD LAB BLOOD ORDERABLES Final Resu lt Performing Organization Address [facility] Co de Phone Number [facility] [address] [facility] * Katie-Watkins virus early antigen antibody, IgG (10/07/2024 6:37 PM EDT) EBV Early Antigen Ab, IgG <9.0 0.0 - 8.9 U/mL 10/09/2024 2:16 PM EDT [facility] Comment: Negative < 9.0 Equivocal 9.0 - 10.9 Positive >10.9 Serum Frozen 10/07/2024 6:37 PM EDT 10/09/2024 3:07 PM EDT Narrative [facility] - 10/09/2024 3:07 PM EDT PERFORMED AT: [facility] [id number] IAP DISPLAYS ANALYST: Bassam Khalil, PhD PHONE: [phone] Gerri Peterson MD LAB BLOOD ORDERABLES Final Resu lt Performing Organization Address City/[facility]/ZIP Co de Phone Number [facility] [address] * (ABNORMAL) Varicella zoster antibody, IgG (10/07/2024 6:37 PM EDT) Varicella IgG Positive( A) Negative S/CO 10/07/2024 8:34 PM EDT [facility] Comment:Result indicates the presence [...] - 0.99 S/CO 10/07/2024 8:34 PM EDT [facility] Serum 10/07/2024 6:37 PM EDT 10/07/2024 6:50 PM EDT us Gerri Pteerson MD LAB BLOOD ORDERABLES Final Resu lt Performing Organization Address [facility]/ZIP Co de Phone Number [facility] [address] [facility] * TSH (Thyroid Stimulating Hormone) (10/07/2024 6:37 PM EDT) TSH 0.81 0.45 - 4.12 uIU/mL 10/07/2024 8:17 PM EDT [facility] Serum 10/07/2024 6:37 PM EDT 10/07/2024 6:50 PM EDT Gerri Peterson MD LAB BLOOD ORDERABLES Final Resu lt Performing Organization Address City/[facility]/ZIP Co de Phone Number [facility] [address] * IgA (10/07/2024 6:37 PM EDT) IgA 227.0 70.0 - 400.0 mg/dL 10/08/2024 11:07 AM EDT [facility] Comment:Please interpret the se findings in conjunction with clinical findings, protein electrophoresis, and immunotyping/immunofixation results. Serum 10/07/2024 6:37 PM EDT 10/07/2024 6:50 PM EDT us Gerri Peterson MD LAB BLOOD ORDERABLES Final Resu lt [facility] [address] [id number], [facility] * (ABNORMAL) Lipid Profile (10/07/2024 6:37 PM EDT) Non-HDL Cholesterol, Calculated See Note 0 - 129 mg/dL 10/07/2024 7:42 PM EDT [facility] Comment: Desirable: < 130 mg/dL Above Desirable: 130-159 mg/dL Borderline High: 160-189 mg/dL High: 190-219 mg/dL Very High: > 219 mg/dL Unable to calculate result either because contributing result(s) are outside of reportable range or are not available. Cholesterol, Total <25 0 - 200 mg/dL 10/07/2024 7:42 PM EDT [facility] Triglycerides 30 10 - 149 mg/dL 10/07/2024 7:42 PM EDT [facility] HDL 4(L) 60 - 92 mg/dL 10/07/2024 7:42 PM EDT [facility] Comment: LIPID PROFILE INTERPRETATION [...] Cholesterol See Note mg/dL 7:42 PM EDT [facility] Comment:Unable to calculate result either because contributing result(s) are outside of reportable range or are not available. Plasma 10/07/2024 6:37 PM EDT 10/07/2024 7:06 PM EDT Narrative [facility] - 10/07/2024 7:42 PM EDT LDL cholesterol calculated using the Friedewald equation. us Gerri Peterson MD LAB BLOOD ORDERABLES Final Resu lt [facility] [address] [place] [id number], [facility] * X-ray Mandible minimum 4-views (10/07/2024 [...] EXAM: US ABDOMEN COMPLETE EXAM: US DUPLEX [id number] COMPLETE INDICATION: elevated bilirubin COMPARISON: Ultrasound and [...] EXAM: US ABDOMEN COMPLETE EXAM: US DUPLEX [id number] COMPLETE INDICATION: elevated bilirubin COMPARISON: Ultrasound and [...] at 10/07/2024 4:26 PM EDT Bisi Hernandez [facility] [place] ORDERABLES Final Result * AFP Tumor Marker (10/07/2024 6:00 AM EDT) Only the most recent of2 resultswithin the time period is included. [facility] AFP-Tumor Marker 2.0 0.0 - 9.0 ng/mL 10/07/2024 7:11 AM EDT [facility] Serum 10/07/2024 6:00 AM EDT 10/07/2024 6:39 AM EDT Narrative [facility] - 10/07/2024 7:11 AM EDT The testing method for AFP is a chemiluminescent immunoassay manufactured by [employer] Concentrations of AFP obtained by different assay methods or kits may vary and cannot be used interchangeably. AFP results cannot be interpreted as absolute evidence of the presence or absence of malignant disease. Ni Rivera MD LAB BLOOD ORDERABLES Final Resul t [facility] [address] [facility] * Osmolality (10/06/2024 2:50 PM EDT) [facility] Osmolality, Measured 304 278 - 305 mOsm/kg 10/06/2024 3:49 PM EDT [facility] Serum 10/06/2024 2:50 PM EDT 10/06/2024 2:56 PM EDT Jani Vanegas MD LAB BLOOD ORDERABLES Final Resul t Performing Organization Address City/[facility]/ZIP Co de Phone Number [facility] [address] [facility] * CT Head WO contrast (10/06/2024 [...] Ur <10 mmol/L 10/06/2024 1:56 PM EDT [facility] Comment:Reference range not established for this test. Urine 10/06/2024 1:25 PM EDT 10/06/2024 1:32 PM EDT us Jani Vanegas MD URINE ORDERABLES Final Result Performing Organization Address [facility] Co de Phone Number [facility] [address] [place] [address] * Potassium, urine, random (10/06/2024 1:25 PM EDT) Only the most recent of2 resultswithin the time period is included. Potassium Urine Random 50.0 mmol/L 10/06/2024 1:56 PM EDT [facility] Comment:Reference range not established for this test. Urine 10/06/2024 1:25 PM EDT 10/06/2024 1:32 PM EDT us Jani Vanegas MD URINE ORDERABLES Final Result Performing Organization Address [facility] de Phone Number [facility] [address] * Osmolality, Urine (10/06/2024 1:25 PM EDT) Osmolality, Ur 386 50 - 1,200 mOsm/kg 10/06/2024 1:55 PM EDT [facility] Urine 10/06/2024 1:25 PM EDT 10/06/2024 1:32 PM EDT us Jani Vanegas MD URINE ORDERABLES Final Result Performing Organization Address [facility] de Phone Number [facility] [address] [facility] * Chloride, urine, random (10/06/2024 1:25 PM EDT) Only the most recent of2 resultswithin the time period is included. Chloride, Ur <15 mmol/L 10/06/2024 1:56 PM EDT [facility] Comment:Reference range not established for this test. Urine 10/06/2024 1:25 PM EDT 10/06/2024 1:32 PM EDT us Jani Vanegas MD URINE ORDERABLES Final Result Performing Organization Address [facility]/ZIP Co de Phone Number [facility] [address] * (ABNORMAL) Salicylate Level (10/06/2024 4:01 AM EDT) Pathologist [facility] Salicylate Lvl <3(L) 10 - 30 mg/dL 10/06/2024 4:58 AM EDT [facility] Serum 10/06/2024 4:01 AM EDT 10/06/2024 4:22 AM EDT us Bisi Hernandez DO LAB BLOOD ORDERABLES Final Resul t Performing Organization Address City/[facility]/ZIP Co de Phone Number [facility] [address] [facility] * Upper Respiratory Viral/Bacterial Panel-DRUGLESS DOCTOR Only (10/06/2024 3:12 AM EDT) [facility] Adenovirus Not Detected Not Detected 10/06/2024 11:38 PM EDT [facility] Coronavirus (229E,HKU1,NL63,OC 43) Not Detected Not Detected 10/06/2024 11:38 PM EDT [facility] SARS-CoV-2 Not Detected Not Detected 10/06/2024 11:38 PM EDT [facility] Human Metapneumovirus Not Detected Not Detected 10/06/2024 11:38 PM EDT [facility] Human Rhinovirus/Enterov irus Not Detected Not Detected 10/06/2024 11:38 PM EDT [facility] Influenza A Not Detected Not Detected 10/06/2024 11:38 PM EDT [facility] Influenza A H1 Not Detected Not Detected 10/06/2024 11:38 PM EDT [facility] Influenza A/H1-2009 Not Detected Not Detected 10/06/2024 11:38 PM EDT [facility] Influenza A H3 Not Detected Not Detected 10/06/2024 11:38 PM EDT [facility] Influenza B Not Detected Not Detected 10/06/2024 11:38 PM EDT [facility] Parainfluenza 1 Not Detected Not Detected 10/06/2024 11:38 PM EDT [facility] Parainfluenza 2 Not Detected Not Detected 10/06/2024 11:38 PM EDT [facility] Parainfluenza 3 Not Detected Not Detected 10/06/2024 11:38 PM EDT [facility] Parainfluenza 4 Not Detected Not Detected 10/06/2024 11:38 PM EDT [facility] Resp. Syncycial Virus A Not Detected Not Detected 10/06/2024 11:38 PM EDT [facility] Resp. Syncycial Virus B Not Detected Not Detected 10/06/2024 11:38 PM EDT [facility] Chlamydia pneumoniae Not Detected Not Detected 10/06/2024 11:38 PM EDT [facility] Mycoplasma pneumoniae Not Detected Not Detected 10/06/2024 11:38 PM EDT [facility] Comment: The Respiratory Viral-Bacterial [...] Test results have been sent to the [facility] in accordance with state requirements. For a fact sheet for healthcare providers, see https://www.fda.gov/media/623030/download. For a fact sheet for patients, see https://www.fda.gov/media/821368/download. Nasopharyngeal Swab NASOPHARYNGEAL SWAB / Unknown 10/06/2024 3:12 AM EDT 10/06/2024 5:41 PM EDT Comment:DRUGLESS DOCTOR us Bisi Akana maría DO BODY FLUIDS AND STOOLS ORDERABLE S Final Result Performing Organization Address City/[facility]/ZIP Co de Phone Number [facility] [address] * Thyroid Function [place] (10/06/2024 1:04 AM EDT) TSH 0.84 0.45 - 4.12 uIU/mL 10/06/2024 2:20 AM EDT [facility] Serum 10/06/2024 1:04 AM EDT 10/06/2024 1:39 AM EDT [facility] BLOOD ORDERABLES Final Resul t Performing Organization Address [facility] Co de Phone Number [facility] [address] * #2 Blood culture-Peripheral site 2 (10/06/2024 1:04 AM EDT) Only the most recent of2 resultswithin the time period is included. Culture Result No Growth After 5 Days [facility] Blood BLOOD SPECIMEN / Unknown 10/06/2024 1:04 AM EDT 10/06/2024 4:57 AM EDT Narrative [facility] - 10/11/2024 5:05 AM EDT Suboptimal volume of blood received. Interpret results with caution. us Bisi Akana maría DO MICROBIOLOGY - GENERAL ORDERABLE S Final Result Performing Organization Address [facility] Co de Phone Number [facility] [address] * (ABNORMAL) Acetaminophen Level (10/06/2024 1:04 AM EDT) Acetaminophen Level <10(L) 10 - 30 ug/mL 10/06/2024 2:08 AM EDT [facility] Serum 10/06/2024 1:04 AM EDT 10/06/2024 1:30 AM EDT Result [facility] Bisi Hernandez DO LAB BLOOD ORDERABLES Final Resul t [facility] [address] [place] [address], [facility] * Renal Function Panel, Fasting (09/16/2024 12:20 PM EDT) EGFR 31 Anion Gap 14.3 <=30 mmol/L Plasma Result [facility] Gerri Peterson MD LAB BLOOD ORDERABLES Final Resu lt * Glucose, random (09/16/2024 12:20 PM EDT) Glucose 97 60 - 200 mg/dL Plasma Result [facility] Gerri Peterson MD LAB BLOOD ORDERABLES Final Resu lt * (ABNORMAL) Hepatic function panel (09/16/2024 12:20 PM EDT) Alkaline Phosphatase 144 U/L ALT 40 U/L AST 76 U/L Total Bilirubin 19.8(A) 0.1 - 1.4 mg/dL Protein, Total 6.3 Albumin 3.4(A) 3.5 - 5.0 g/dL Blood Result [facility] Gerri Peterson MD LAB BLOOD ORDERABLES Final Resu lt from Last 3 Months Additional Health Concerns 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 [employer] [facility] [employer] TRANSPLANT [employer]LOBAL Member Subscriber Plan / Payer (Ef fective 2024-Present) Name:Blair Anderson Relation to Subscriber:Self Name:Blair Anderson Payer ID:[id number] Group ID:Not on file Type:Transplant Address: [facility] [place] [address] Advance Directives For more information, please contact: [phone] * Full Code (Latest Code Status on [...] 9:55 PM 08/19/2024 4:56 PM Care Teams Water Taxi Driver Relationship Specialty Start Date End Date Enedina Mcguire NP [address] [place] [address] PCP - General Internal Medicine 10/05/24 Maureen Pantoja, RN Txp Post Coordinator Transplant Hepatology 10/28/24
--- OUTSIDE RECORDS SUMMARY | 2024-12-16 10:06 | XMS_ITS | Clinical Summary ---
Author Organization [employer] ([place], [place], [place], [place]) Address [address] [place] [address] Care Team Providers Care Pond Worker Name Role Phone Unavailable Primary Care [...]
--- OUTSIDE RECORDS SUMMARY | 2024-12-16 10:06 | XMS_ITS | Encounter Summary ---
Author Organization [employer] ([place], [place], [place], [place]) Address [address] [place] [address] Care Team Providers Care Landscape Foreman Name Role Phone Unavailable Primary Care Provider Unavailabl e Encounter Details Date Type Department Care Team (Late st Contact Info) Description 06/03/2018 Transcribed Document [facility] [place] [address] [place] [address] ProviderEbenezer MD [address] [place], [place] [id number] Social History Tobacco Use Types Packs/Day Years [...] - Historical ProviderMD - 06/03/2018 12:08 PM AUTOMOTIVE MECHANICAL ENGINEER ED Assessment Entered On: 06/03/2018 14:51 EST Performed On: 06/03/2018 13:50 EST by Lizeth Almeida, MANGLE TENDER CLOTH Quick Look Assessment Level of Consciousness : Alert Affect/Behavior : Calm, Cooperative Orientation : Oriented x 4 Skin Color : Other: Eighty Four Skin Temperature : Warm Skin Description : Dry Lizeth Almeida, RN - 06/03/2018 14:50 EST ED General-Functional Assess Communication Barrier : None Primary Language : Czech Any Spiritual/Cultural Needs or Requests : No [...]
--- OUTSIDE RECORDS SUMMARY | 2024-12-16 10:06 | XMS_ITS | Encounter Summary ---
Author Organization [employer] ([place], [place], [place], [place]) Address [address] [place] [address] Care Team Providers Care Battery Vent Plug Inserter Name Role Phone Unavailable Primary Care Provider Unavailabl e Encounter Details Date Type Department Care Team (Late st Contact Info) Description 06/03/2018 Transcribed Document [facility] [place] [address] [place] [address] ProviderEbenezer MD [address] [place] [address] Social History Tobacco Use Types [...] - Historical ProviderMD - 06/03/2018 3:04 PM IMPROVEMENT INTERN [place] [address] [facility] [place] [address] PERSON INFORMATION Name JULIEN ZELAYA Age 33 Years 1985 Sex Male Language Kuwaiti PCP SALLY EVERETT (REF) T Marital Status Single Med Service Emergency Medicine Acct# Arrival 06/03/2018 12:08:00 Visit Reason Finger laceration; CUT FINGERS Acuity 3 - Urgent LOS 000 02:56 Depart Date: 06/03/18 03:04 PM Address: [address] [facility] [address] Comment: PROVIDER INFORMATION Provider Role Assigned Unassigned Lizeth Almeida, ORACLE OBIEE DEVELOPER Nurse 06/03/2018 12:39:09 DOMINIQUE BREWER PA-C ED [...] PURI # [address]C [address] [place], [place] [id number] [employer] Within 2 to 3 days Comment: documented in this encounter Plan of Treatment Not on file documented as of this encounter Visit Diagnoses Not on filedocumented in this encounter
--- OUTSIDE RECORDS SUMMARY | 2024-12-16 10:06 | XMS_ITS ---
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
--- OUTSIDE RECORDS SUMMARY | 2024-12-16 10:06 | XMS_ITS | Encounter Summary ---
Author Organization [employer] ([place], [place], [place], [place]) Address [address] [place] [address] Care Team Providers Care Outside Salesperson Name Role Phone Unavailable Primary Care Provider Unavailabl e Encounter Details Date Type Department Care Team (Late st Contact Info) Description 06/03/[address] [facility] Family Medicine [address] [place] [address] ProviderEbenezer MD [address] [place] [address] Social History Tobacco Use Types [...] - Historical ProviderMD - 06/03/2018 12:08 PM HOG SCRAPER ED Triage Entered On: 06/03/2018 12:17 EST Performed On: 06/03/2018 12:12 EST by KANU VELEZ RN ED Triage Across the Room Triage Date/Time : 06/03/2018 12:12 EST Chief Complaint : lacerations to rt index and left middle finger s/p picking up a glass that shattered detective captain. lacerations noted with bleeding controlled KANU VELEZ RN - 06/03/2018 12:12 EST DCP GENERIC CODE Tracking Acuity : 3 - Urgent Tracking Group : [facility] KANU VELEZ RN - [...] 12:17:41 EST) Problems(Active) HTN (hypertension) (SNOMED CT :[id number] ) Name of Problem: HTN (hypertension) ; Recorder: KANU VELEZ RN; Confirmation: Confirmed ; Classification: Medical ; Code: [id number] ; Contributor System: [facility] ; Last Updated: 06/03/2018 12:14 EST ; Life Cycle Date: 06/03/2018 ; Life Cycle Status: Active ; Vocabulary: SNOMED CT Diagnoses(Active) Finger laceration Date: 06/03/2018 ; Diagnosis Type: Reason For Visit ; Confirmation: Complaint of ; Clinical Dx: Finger laceration ; Classification: Medical ; Clinical Service: Emergency medicine ; Code: PNED ; Probability: 0 ; Diagnosis Code: [id number] ED Height and Weight Height Source : [...] Body Mass Index : 32.3 kg/m2 (HI) [place] Body Weight (IBW) : 85.74 kg KANU [...]
--- OUTSIDE RECORDS SUMMARY | 2024-12-16 10:06 | XMS_ITS | Encounter Summary ---
Author Organization [employer] ([place], [place], [place], [place]) Address [address] [place] [address] Care Team Providers Care Nuclear Plant Construction Worker Name Role Phone Unavailable Primary Care Provider Unavailabl e Encounter Details Date Type Department Care Team (Late st Contact Info) Description 06/03/2018 Transcribed Document [facility] Family Medicine [address] [place] [address] ProviderEbenezer MD [address] [place], [place] [id number] Social History Tobacco Use Types Packs/Day Years [...] - Historical ProviderMD - 06/03/2018 2:24 PM MANAGER FAMILY Electronically signed by Gabriela [facility] Conversion Consultant Teacher Cerner at 08/29/2022 6:41 PM CDT documented in this encounter Plan of Treatment Not on file documented as of this encounter Visit Diagnoses Not on filedocumented in this encounter
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
--- OUTSIDE RECORDS SUMMARY | 2024-12-16 10:06 | XMS_ITS | Encounter Summary ---
Author Organization [employer] ([place], [place], [place], [place]) Address [address] [place] [address] Care Team Providers Care Gathering Worker Name Role Phone Unavailable Primary Care Provider Unavailabl e Encounter Details Date Type Department Care Team (Late st Contact Info) Description 06/03/2018 Transcribed Document [facility] [place] Medicine [address] [place] [address] ProviderEbenezer MD [address] [place], [place] [id number] Social History Tobacco Use Types Packs/Day Years [...] - Historical ProviderMD - 06/03/2018 3:03 PM LETTERER ED Discharge Entered On: 06/03/2018 15:03 EST Performed On: 06/03/2018 15:03 EST by Lizeth Almeida, ultrasonic welding machine operator Process Patient Disposition : Discharge Personal [...] 06/03/2018 15:03 EST Electronically signed by Gabriela [facility] Conversion Packer Denture Celia at 08/29/2022 6:35 PM CDT documented in this encounter Plan of Treatment Not on file documented as of this encounter Visit Diagnoses Not on filedocumented in this encounter
--- OUTSIDE RECORDS SUMMARY | 2024-12-16 10:06 | XMS_ITS | Encounter Summary ---
Author Organization [employer] ([place], [place], [place], [place]) Address [address] [place] [address] Care Team Providers Care Mounter Brass Wind Instruments Name Role Phone Unavailable Primary Care Provider Carmen e Encounter Details Date Type Department Care Team (Late st Contact Info) Description 06/03/2018 Transcribed Document [facility] [place] [facility] [address] [place] [address] ProviderEbenezer MD [address] [place] [address] Social History Tobacco Use Types [...] - Historical ProviderMD - 06/03/2018 3:04 PM ACCOUNT CONSULTANT [address] [place] [address] Patient Information Name: JULIEN ZELAYA [...] [address] [place] [address] [place] [address] iDoc24 (1) Within 2 to 3 days Patient [...] off of the skin. General Instructions??? Take ndla-afs-fyqfnda and prescription medicines only as told by [...] 04/30/2006 Document Revised: 09/29/2016 Document Reviewed: 04/26/2015 [employer] Interactive Patient Education ? 2017 [employer] Allergies: No Known Medication Allergies Medication [...] Assistance with quitting is available by contacting 5-406-YOTH-NOW. This is a free resource providing counseling, [...] Electronic Communications Privacy Act 18 U.S.C. ???Sections 1107-7624,?? and contain information intended for the specified [...] sure to sign up for the [facility] [place] patient portal, which gives you 04/12 access to your medical information ??? including these discharge instructions ??? using your computer, smartphone, or tablet. Just go to [employer] to get started. Questions? Call . Acknowledgment [...] Electronically signed by Luis Eduardo Ochoa Conversion Higher Education Administrator Celia at 08/29/2022 6:45 PM CDT documented in this encounter Plan of Treatment Not on file documented as of this encounter Visit Diagnoses Not on filedocumented in this encounter
--- OUTSIDE RECORDS SUMMARY | 2024-12-16 10:06 | XMS_ITS ---
Author Organization [facility] Address [address] [place] [address] Care Team Providers Care Manager Mac Name Role Phone Enedina Mcguire NP Primary Care Provider + [phone] Maureen Pantoja RN Unavailable Unavail able Transplant Episode Liver Recipient [facility] ([place], [place]) - [facility] Organ Received: Liver Transplanted on 10/26/2024 Marked as Active Follow-up on 10/26/2024 Liver CoordinatorMaureen Pantoja RN Phone: N/A Fax: N/A Email: N/A [place] Organ Diagnosis Organ Primary Contributory Liver Alcohol-Associated [...] N/A N/A Chris Orosco MD Referring Physician [phone] N/A Maureen Leeanna Pantoja, RN Txp Post Coordinator N/A N/A N/A NUBIA Barros Txp Clinical Support Specialist N/A N/A N/A Harvey Domínguez III, MD Txp Surgeon [phone] N/A Mary Butler RN Txp Pre Coordinator N/A N/A N/A Events Post-Transplant Pre-Transplant Admitted: 10/25/2024 Referred: 08/13/2024 Transplanted: 10/26/2024 Evaluation began: Discharged: 11/02/2024 Committee: 10/14/2024 Center waitlisted: Pending Checklist Tasks (Due on or before 01/16/2025) Name Due Date Attached Appoint ment Social Work Consult 01/05/2025 Appointments (11/15/2024 - 01/16/2025) When With Visit Type Description 11/25/2024 Txp Lalit Oscar Established Patient E ncounter for therapeutic drug monitoring (Primary Dx); S/P liver transplant ([facility] [place]); Hypomagnesemia; Kidney transplant recipient; Hypertension, unspecified type; Gastroesophageal reflux disease, unspecified whether esophagitis present; Abdominal pain, unspecified abdominal location 11/25/2024 Txp Lorrie Mascorro Established Patient NADIYA (acute kidney injury) ([facility] [place]) (Primary Dx); Kidney replaced by transplant; Metabolic acidosis; Hypervolemia associated with renal insufficiency 12/09/2024 Txp Kady De La Rosa Established Patient Encounter for therapeutic drug monitoring (Primary Dx); S/P liver transplant ([facility] [place]); Hypomagnesemia; Kidney transplant recipient; Hypertension, unspecified type; Gastroesophageal reflux disease, unspecified whether esophagitis present 12/09/2024 Txp Jose Hanna Established Patient Kidney transplant recipient (Primary Dx); Immunosuppressive management encounter following liver transplant ([facility] [place]); Hypomagnesemia; S/P liver transplant ([facility]); Hypertension, unspecified type; Hyperparathyroidism ([facility])
--- OUTSIDE RECORDS SUMMARY | 2024-12-16 10:06 | XMS_ITS | Encounter Summary ---
Author Organization [facility] Address [address] [place] [address] Care Team Providers Care Outpatient Phlebotomist Name Role Phone Enedina Mcguire NP Primary Care Provider + [phone] Maureen Pantoja RN Unavailable Unavail able Source [...] release of HIV test results or diagnoses. [id number] Reason for Visit * Reason Comments Results Encounter Details Date Type Department Care Team (Riky st Contact Info) Description 11/18/2024 Telephone [facility] Liver Transplant at [address] [address] Maureen Pantoja, RN Results Social [...] In the past 12 months has e [employer], gas, oil, or water [employer] threatened to shut off services in [...] as of this encounter Care Teams Outpatient Phlebotomist Relationship Specialty Start Date End Date Enedina Mcguire NP [address] [place] [address] PCP - General Internal Medicine 10/05/24 Maureen Pantoja, RN Txp Post Coordinator Transplant Hepatology 10/28/24 documented as of this encounter
--- OUTSIDE RECORDS SUMMARY | 2024-12-16 10:06 | XMS_ITS | Encounter Summary ---
Author Organization [facility] Address [address] [place] [address] Care Team Providers Care Diaper Folder Name Role Phone Enedina Mcguire APRN Primary Care Provider + Reason for Visit * Reason Comments Med Refill Encounter Details Date Type Department Care Team ([facility] st Contact Info) Description 12/12/2024 Refill [facility] INTERNAL MEDICINE [address] [place] [address] Enedina Mcguire APRN [address] [place], [place] [id number] Acquired hypothyroidism; Secondary esophageal varices without bleeding Social History Tobacco Use Types Packs/Day Years Used Date Smoking Tobacco: Former Cigarettes 4 20 Passive Smoke Exposure: Past Smokeless Tobacco: Current Comments:MARIJUANA USE ABOUT 2X PER WEEK - reports no use 08-05-2024 Alcohol Use Standard Drinks/Week Comments Not Currently 0 (1 standard drink = 0.6 oz pure alcohol) 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 [facility] Utilities Answer Date Recorded In the past 12 months has [employer], gas, oil, or water [employer] threatened to shut off services in [...] Brief Depression Severity Measure Score 0 10/02/2022 [facility] - Occupational Stress Questionnaire [...] GED or equivalent No 07/09/2024 Preferred Language French 07/09/2024 PHQ-2 Answer Date Recorded Patient Health [...] Description 01/01/2025 2:15 PM EDT Office Visit [facility] PAIN MANAGEMENT [address] [address] Vazquez Christie PA-C [address] [place] [address] documented as of this encounter Visit Diagnoses Diagnosis Acquired hypothyroidism Unspecified hypothyroidism Secondary esophageal varices without bleeding documented in this encounter Additional Health Concerns Assessment Noted Time PHQ-2 Depression Total Score: 1 12/31/19 24 3:25 PM EDT documented as of this encounter Care Teams Diaper Folder Relationship Specialty Start Date End Date Enedina Mcguire APRN [address] [place] [address] PCP - General Nurse Practitioner 10/27/24 documented as of this encounter
--- OUTSIDE RECORDS SUMMARY | 2024-12-16 10:06 | XMS_ITS | Referral Summary ---
Author Organization [employer] ([place], [place], [place], [place]) Address [address] [place] [address] Care Team Providers Care Ceo & Board Director Name Role Phone Unavailable Primary Care [...]
--- OUTSIDE RECORDS SUMMARY | 2024-12-16 10:06 | XMS_ITS | Encounter Summary ---
Author Organization [facility] Address [address] [place] [address] Care Team Providers Care Program Host Name Role Phone Enedina Mcguire NP Primary Care Provider + [phone] Maureen Pantoja RN Unavailable Unavail able Source [...] release of HIV test results or diagnoses. [id number] Health Encounter Details Date Type Department Care Team (Late st Contact Info) Description 11/18/2024 Chart Note [facility] Liver Transplant at [address] [place] [phone] Marlene Ro MA Social History Tobacco Use [...] Recorded In the past 12 months has [employer], gas, oil, or water [employer] threatened to shut off services in your [...] w/o EGFR (11/13/2024 8:44 AM EDT) Pathologist [facility] Glucose 108 mg/dL BUN 25(A) 4 - [...] 5.0 g/dL Blood Narrative Resulting Agency Comment [facility] us Historical Provider LAB BLOOD ORDERABLES Denisse l Result * Tacrolimus level (11/13/2024 8:44 AM EDT) Pathologist [facility] Tacrolimus Lvl 10.9 6 - 15 ng/mL Whole Blood Narrative Resulting Agency Comment [facility] Historical Provider LAB BLOOD ORDERABLES Denisse l Result * (ABNORMAL) CBC and differential (11/13/2024 8:44 AM EDT) Pathologist [facility] Hemoglobin 9.8(A) 13.5 - 17.5 g/dL Hematocrit [...] 5.7 10^3/mL Blood Narrative Resulting Agency Comment [facility] Historical Provider LAB BLOOD ORDERABLES Denisse l Result * (ABNORMAL) Hepatic Function Panel (11/13/2024 8:44 AM EDT) Bilirubin, Direct 0.6 Bilirubin, Indirect 0.2 Alkaline Phosphatase 137 U/L ALT 29 U/L AST 20 U/L Total Bilirubin 0.8 0.1 - 1.4 mg/dL Total Protein 5.8(A) 6.4 - 8.2 g/dL Plasma Narrative Resulting Agency Comment [facility] Historical Provider LAB BLOOD ORDERABLES Denisse l Result documented in this encounter Visit Diagnoses Not on filedocumented in this encounter Additional Health Concerns Infection Onset Date Last Indicated Resolved Time 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
[2024-12-16 10:29] LABS: Hematocrit 34.3 % (42.0-52.0); Hemoglobin 11.3 g/dL (14.1-18.0); Immature Granulocytes % 0.4 %; Mean Corpuscular HGB Conc 32.9 g/dL (31.8-35.4); Mean Corpuscular Hemoglobin 30.5 pg (27.0-31.2); Mean Corpuscular Volume 92.7 fl (80-94); Nucleated Red Blood Cells % 0 %; Platelet Count 123 K/mm3 (142-424); Red Blood Count 3.70 M/mm3 (4.60-6.20); Red Cell Distribution Width-SD 55.4 fL; White Blood Count 4.8 K/mm3 (4.8-10.8)
[2024-12-16 10:39] LABS: INR 0.95 (0.9-1.1); Prothrombin Time 10.6 seconds (10.1-12.5)
[2024-12-16 11:06] LABS: Alanine Aminotransferase 15 U/L (12-78); Albumin Level 4.4 g/dl (3.5-5.0); Alkaline Phosphatase 73 U/L (38-126); Anion Gap 14.3 mEq/L (5-15); Aspartate Amino Transferase 19 U/L (17-59); Bilirubin,Direct 0.2 mg/dl (0.0-0.4); Bilirubin,Indirect 0.2 mg/dL (0.0-0.9); Bilirubin,Total 0.4 mg/dl (0.2-1.3); Bilirubin,Unconjugated 0.3 mg/dL (0.0-1.1); Blood Urea Nitrogen 14 mg/dl (9-20); Calcium 10.0 mg/dl (8.4-10.2); Carbon Dioxide 23 mmol/L (22.0-30.0); Chloride 108 mmol/L (98-107); Creatinine,Serum 0.80 mg/dl (0.66-1.25); Estimated Glomerular Filt Rate 107 ml/min (>60); GFR (African American) 129 ML/MIN (>60); Glucose 94 mg/dl (74-100); Magnesium 1.3 mg/dl (1.6-2.3); Phosphorous 4.9 mg/dl (2.5-4.5); Potassium 4.3 mmoL/L (3.5-5.1); Sodium 141 mmol/L (136-145); Total Protein,Serum 6.2 g/dl (6.3-8.2)
[2024-12-19 20:10] LABS: Tacrolimus (FK506), Blood 11.3 ng/mL (5.0-20.0)
== END 2024-12-16 23:59 | disposition home or self-care (01) ==
LOC: LAB 09:52
PROVIDERS: PCP Nurse Practitioner Family; Visit Provider Surgery
DX: K74.60 Unspecified cirrhosis of liver (principal); R18.8 Other ascites; Z79.60 Long term (current) use of unspecified immunomodulators and immunosuppressants; Z94.4 Liver transplant status
CPT/HCPCS: 36415; 80069; 80076; 80197; 83735; 85025; 85610

== ENCOUNTER 2024-12-23 09:48 | Outpatient (CLI) | payer OTHER, SELFPAY ==
--- OUTSIDE RECORDS SUMMARY | 2024-10-25 20:46 | XMS_ITS | Encounter Summary ---
Author Organization [facility] Address [address] [place] [address] Care Team Providers Care Tool Maker Bench Name Role Phone Enedina Mcguire NP Primary Care Provider + [phone] Alicia Pantoja RN Unavailable Unavail able Source [...] release of HIV test results or diagnoses. [id number] Reason for Referral * Surgical (Routine) - Authorized Specialty Diagnoses / Procedures Referred By Shane hernadez Referred To Contact Surgery Diagnoses Acute kidney injury superimposed on CKD (CMS-HCC) Procedures Case request operating room: TRANSPLANT KIDNEY with bile duct reconstruction Sveta Judge MD [address] [facility] [address] Surgery [place] [address] Phone: tel: fax: Referral ID Status Reason Start Date Expiration Date V isits Requested Visits Authorized [id number] Authorized 10/26/2024 04/24/2025 1 1 Reason for Visit * Auth/Cert (Routine) Specialty Diagnoses / Procedures Referred By Shane hernadez Referred To Contact Surgical Intensive Care Diagnoses Liver transplant recipient (CMS-HCC) cirrhosis and CKD Procedures LIVER-KIDNEY TRANSPLANT [facility] [address] [place] [address] Phone: tel: Referral ID Status Reason Start Date Expiration Date Visits Re quested Visits Authorized [id number] 1 1 Encounter Details Date Type Department Care Team (Latest Contact Info) Description 10/25/2024 8:46 PM EDT - 11/02/2024 6:23 PM EDT Hospital Encounter [address] [place] [address] Harvey Domínguez III, MD [address] [facility] [address] Transplant [place] [address] Lydia Sanchez MD [address] [facility] Liver/[place] [address] Acute kidney injury superimposed on CKD ([facility]) (Primary Dx); Prophylactic antibiotic; Prolonged QT interval; Immunosuppression ([facility]); Abdominal pain, unspecified abdominal location Discharge [...] Recorded In the past 12 months has leemail, [employer], or water Leaf threatened to shut off services in your [...] in a skilled nursing (including now)? No 10/29/2024 Yearly Questionnaire Answer [...] Plata MD - 11/02/2024 2:04 PM EDT [facility] [place]plant Surgical Service Inpatient Discharge Summary Patient: Blair Gilbert : 1985 CSN: [id number] Date of Admission: 10/25/2024 Date of Discharge: [...] Case IDs Date Procedure Surgeon Location Status [id number] 10/25/24 LIVER TRANSPLANT Harvey Domínguez III, MD OR Comp [id number] 10/27/24 Donor Kidney Transplant , Back Bench [...] EXAM: US ABDOMEN LIMITED EXAM: US DUPLEX AWE-ZOMDFX-THVYJDY COMPLETE INDICATION: Post-op liver transplant COMPARISON: None [...] visualized secondary to poor acoustic windows. The [place] right kidney measures 11.6 cm in length. [...] 30 tablet Refills: 0 naloxone 4 mg/actuation [place] Commonly known as: NARCAN Apply 1 spray [...] Your Medications These medications were sent to [facility] NAA [facility]um - [address] [address] mycophenolate 250 mg capsule tacrolimus 1 MG capsule These medications were sent to [facility] [address] [facility] [address] Hours: Sunday - Sunday: 8:00AM - 6:00PM [...] Case IDs Date Procedure Surgeon Location Status [id number] 10/25/24 LIVER TRANSPLANT Harvey Domínguez III, MD OR Comp [id number] 10/27/24 Donor Kidney Transplant , Back Bench [...] discharge. NEURO/PAIN - Patient placed on Dilaudid REQUIREMENTS ENGINEER once extubated, then transitioned to multi-modal pain [...] Ureteral stentis scheduled for removal on 11/25 [facility] - PT/OT evaluated patient and recommended Home PT/OT, outpatient PT/OT only available. ENDO - A1C is 5.0. Pt was not on diabetic regimen prior to arrival. Patient developed steroid-induced hyperglycemia 2/2 steroid regimen. Discharged home on the following regimen: HDSSI. Patient met w/ clinical unit educator prior to discharge. HEME - Post-operatively, [...] Patient and family received post-transplant education from community marketing coordinator as well as medication teaching from [...] Center 11/04/2024 8:40 AM LTRA SURGERY, [facility] LTRA HOX [facility] 11/04/2024 10:10 AM LTRA HEPATORENAL [facility] LTRA HOX HOX 11/25/2024 9:00 AM NAA Merida [facility] URO MAB MAB 12/02/2024 2:00 PM Bossman Huffman MD [facility] MARIANGEL M[facility] M[facility] 02/25/2025 10:50 AM Bruno Gonzalez MD KTSP HOX HOX Kenyettafahad Hartman, MS-4 [facility] SHAY PLATA MD 11/02/2024 12:50 PM [...] up appointments. Diet: Regular diet Drain/Dressing/Wound Care: [place] will be removed in clinic approximately 3-4 [...] kept under 2 gm/day. Please discuss withyour hospice spiritual care coordinator if you have any question about appropriate dose to take. Other Instructions: Call post-liver transplant clinic with questions [phone] or call [facility] at [phone] and ask for the liver community marketing coordinator partner integration planner if you experience any of the following: [...] Center 11/04/2024 8:40 AM LTRA SURGERY, [facility] LTRA [facility] 11/04/2024 10:10 AM LTRA HEPATORENAL [facility] LTRA [facility] 11/25/2024 9:00 AM NAA Merida [facility]RO MAB MAB 12/02/2024 2:00 PM Bossman Huffman MD [facility] MARIANGEL MAB MAB 02/25/2025 10:50 AM Bruno Gonzalez MD [facility] documented in this encounter Medications at Time of Discharge levothyroxine (SYNTHROID) 75 MCG tablet Take 1 tablet (75 mcg total) by mouth every morning before breakfast. loratadine (CLARITIN) 10 mg tablet Take 1 tablet (10 mg total) by mouth daily as needed for Allergies (itching). 30 tablet 10/17/2024 10:24 AM EDT 10/17/2024 alcohol swabs PadM Use as instructed. 200 each 1 11/02/2024 10:20 AM EDT 10/27/2024 naloxone (NARCAN) 4 mg/actuation [place] Apply 1 spray in one nostril if [...] 30 tablet 11/02/2024 10:20 AM EDT 10/27/2024 apixaban (ELIQUIS) 2.5 mg Tab Take 1 tablet (2.5 mg total) by mouth 2 times a day for 24 days. Last dose 11/26/24 48 tablet 11/02/2024 10:20 AM EDT 11/02/2024 5 fluconazole (DIFLUCAN) 200 MG tablet Take [...] tablet 11/02/2024 10:20 AM EDT 10/31/2024 5 methocarbamoL (ROBAXIN) 500 MG tablet Take 2 [...] tablet 11/02/2024 10:20 AM EDT 11/02/2024 5 sodium bicarbonate 650 MG tablet Take 2 tablets (1,300 mg total) by mouth 2 times a day. 28 tablet 11/02/2024 10:20 AM EDT 10/31/2024 5 tacrolimus (PROGRAF) 1 MG capsule Take 6 capsules (6 mg total) by mouth 2 times a day. Use as directed 600 capsule 5 11/02/2024 5 acetaminophen (TYLENOL) 325 MG tablet Take 3 tablets (975 mg total) by mouth every 8 hours. 200 tablet 11/02/2024 10:20 AM EDT 10/27/2024 5 blood sugar diagnostic (GLUCOSE BLOOD) [facility] Use to test blood sugar up to 4 times a day. 100 strip 11 11/02/2024 10:20 AM EDT 10/27/2024 5 blood-glucose meter (TRUE METRIX GLUCOSE METER) [facility] Use to test blood sugar up to [...] 2 11/02/2024 10:20 AM EDT 10/27/2024 5 insulin aspart, niacinamide, (FIASP FLEXTOUCH U-100 [...] EDT 10/27/2024 5 lancets (ACCU-CHEK SOFTCLIX LANCETS) [facility] Use to test blood sugar up to 4 times a day. 100 each 11 11/02/2024 10:20 AM EDT 10/27/2024 5 linezolid (ZYVOX) 600 mg tablet Take 1 tablet (600 mg total) by mouth 2 times a day. 28 tablet 11/02/2024 3:06 PM EDT 11/02/2024 5 pen needle, diabetic 32 gauge x 5/32 Ndle For use with insulin pen. Use as instructed. 100 each 2 11/02/2024 10:20 AM EDT 10/27/2024 5 predniSONE (DELTASONE) 5 MG tablet Take 4 tablets (20 mg total) by mouth daily. 120 tablet 2 11/02/2024 10:20 AM EDT 10/27/2024 5 sulfamethoxazole- trimethoprim (BACTRIM) 400-80 mg per tablet Take 1 tablet by mouth daily. 30 tablet 2 11/02/2024 10:20 AM EDT 10/27/2024 5 torsemide (DEMADEX) 20 MG tablet Take [...] tacrolimus and mycophenolate which were dispensed through [facility] per insurance requirements. Patient's confirms those [...] fair Expected caregiver involvement?: is primary med follow up manager Need for additional education in clinic?: routine reinforcement only Future medications to be obtained from, if known (select one): Tac/MMF to be filled from [facility] Financial concerns (if any): no [...] Disp-15 mL, R-2 lancets (ACCU-CHEK SOFTCLIX LANCETS) [facility] Use to test blood sugar up to [...] Disp-30 tablet, R-0 naloxone (NARCAN) 4 mg/actuation [place] Apply 1 spray in one nostril if [...] Solid Organ Transplant Clinical Specialist Contact via [employer] Secure Chat * Froylan Hendrickson MD - 11/01/2024 8:04 AM EDT Liver Transplant Surgery Progress Note Name: Blair Gilbert CSN: [id number] Date: 11/01/2024 8:06 AM OR Date: 10/25/2024 [...] at 10/31/2024 4:38 PM EDT US Duplex Waz-Hlq-Ulbuskx Comp Result Date: 10/31/2024 IMPRESSION: RIGHT UPPER [...] - 10/27/2024. Plan: Liver transplant recipient ([facility]) [Z94.4] Neuro: - Multimodal pain control: [...] 3:24 PM EDT TXP - Follow Up [facility] Nutrition Therapy Transplant Brief Note Diet Order/Nutrition Support: Diet/Nutrition Orders Diet Regular(7) high calorie 3000 kcal a day Frequency: Effective Now Number of Occurrences: Until Specified Order Questions: Additional restrictions: high calorie 3000 kcal a day Suicide/Behavior Risk Modification? No Dietary nutrition supplements Frequency: TID Number of Occurrences: Until Specified Order Questions: Select Supplement: Boost VHC- very high calorie protein supplement ([facility] only) Pertinent Information: Pt seen for [...] Based on DBW of 93.1 kg Kcals/day: 8465-2205 (25-30 kcals/kg) Protein g/day: 140-190 (1.5-2.0 g/kg) [...] Dietitian - Solid Organ Transplant Contact via [employer] Chat * Keon Dobson - 10/31/2024 2:35 PM EDT [facility] Spiritual Care Volunteer Visit PATIENT NAME: Blair Gilbert ROOM:8025/U8025 Adventist Affiliation:Yarsanism Blair Gilbert was visited by a volunteer today. No needs requiring a visit from a staff delivery aide were expressed at that time. Care Provided: Communion, Prayer/ blessing Please page our service at [phone] as needs arise for patient and/or family. Fr Dean Dobson Yarsanism delivery aide Spiritual Care Dept * Brittany Horne PT [...] issued by OT: Long-handled sponge, Sock aid, Visitor Service Assistant, Other (comment) Equipment issued by OT comment: leg speech language pathology assistant Assessment Assessment: Decreased ADL status, Decreased IADLs, [...] IADL task (Goal met and continued 10/31) Spareribs Trimmer Goal : Pt will complete bathing assessment and transfer retirement goal to be met in: 2 weeks [...] Active Problem List Diagnosis Decompensated cirrhosis ([facility]) Acute kidney injury superimposed on CKD ([facility] Alcohol use disorder Metabolic encephalopathy Hypertension Other hyperlipidemia Thrombocytopenia ([facility] Renal mass, left Abdominal pain Hypokalemia CKD (chronic kidney disease) stage 4, GFR 15-29 ml/min ([facility] Metabolic acidosis with normal anion gap and bicarbonate losses GERD (gastroesophageal reflux disease) Hypothyroidism Itching Anemia BRBPR (bright red blood per rectum) SBP (spontaneous bacterial peritonitis) ([facility] C Diff Diarrhea C. [...] Date 10/30/24699 - 10/31/2465810/31/24699 - 11/01/24658 Shift 7864-2851 0350-7323 8672-8642 24 Hour Total 5113-8307 2223-9536 8476-1763 24 Hour Total INTAKE P.O. 240 240 P.O. 240 240 Shift Total(mL/kg) 240(1.9) 240(1.9) OUTPUT Urine(mL/kg/hr) 1850(1.8) 600(0.6) 600(0.6) 3050(1) 350 350 Urine 800 817 832 8206 350 350 Urine Occurrence 2 x 2 [...] with further concerns Lavell Kramer MD 10/31/[phone] * Priti Geiger CNP - 10/31/2024 10:06 AM EDT Liver Transplant Surgery Progress Note Name: Blair Gilbert CSN: [id number] Date: 10/31/2024 10:06 AM OR Date: 10/25/2024 [...] 10/28/24 1109 LACTATE 0.3* Imaging US Duplex Pvi-Fxo-Qjrovae Comp Result Date: 10/28/2024 IMPRESSION: ABDOMINAL ULTRASOUND [...] - 10/27/2024. Plan: Liver transplant recipient ([facility]) [Z94.4] Neuro: - Multimodal pain control: [...] Sanchez MD PhD Transplant Surgery * Caronmelanie Santos CNP - 10/31/2024 9:30 AM EDT Images from the original note were not included. Transplant Nephrology Progress Note Patient: Blair Gilbert [id number] 8025/U8025 Date of Admit: 10/25/2024. 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 Lauren Santos, DNP, DISCIPLINARY HEARING OFFICER, MOTION GRAPHICS ARTIST- Transplant Nephrology [phone] Preferred contact: secure chat The HPI, ROS, [...] 0659 10/30/24 07 - 10/31/24 0659 Shift 4243-0211 5861-0027 5853-5617 24 Hour Total 4581-8327 3750-7399 3392-7803 24 Hour Total INTAKE P.O. 240 240 480 P.O. 240 240 480 IV Piggyback 87.2 87.2 Volume (mL) (micafungin (MYCAMINE) 50 mg in sodium chloride 0.9 % 100 mL Vopr4Mvs IVPB) 87.2 87.2 Shift Total(mL/kg) 240(2) 327.2(2.7) 567.2(4.4) OUTPUT Urine(mL/kg/hr) 600(0.6) 1175(1.2) 450(0.4) 2225(0.7) 550 550 Output (mL) (IUC (Berkowitz) Triple-lumen (3-Way) 18 Fr.) 600 0417 965 1281 550 550 Drains 175 245 100 520 [...] month of prophylaxis Lavell Kramer MD 10/30/[phone] * Priti Geiger CNP - 10/30/2024 10:36 AM EDT Liver Transplant Surgery Progress Note Name: Blair Gilbert CSN: [id number] Date: 10/30/2024 10:37 AM OR Date: 10/25/2024 [...] 1109 LACTATE 0.5 0.3* Imaging US Duplex Xns-Yqd-Mceudeh Comp Result Date: 10/28/2024 IMPRESSION: ABDOMINAL ULTRASOUND [...] - 10/27/2024. Plan: Liver transplant recipient ([facility]) [Z94.4] Neuro: - Multimodal pain control: [...] Transplant Nephrology Progress Note Patient: Blair Gilbert [id number] [id number] Date of Admit: 10/25/2024. 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 Lauren Santos, DNP, DISCIPLINARY HEARING OFFICER, MOTION GRAPHICS ARTIST- Transplant Nephrology [phone] Preferred contact: secure chat The HPI, ROS, [...] 10/30/2024 4:24 PM EDT Associated attestation - Araon Gonzalez MD - 10/30/2024 4:24 PM EDT [...] 3:36 PM EDT TXP - Follow Up [facility] Nutrition Therapy Follow-Up Diet Order/Nutrition Support: [...] I/O: +23.3L net volume. Last BM Date: (tours captain). Admit Weight: 270 lb (122.5 kg) [...] Based on DBW of 93.1 kg Kcals/day: 6925-1192 (25-30 kcals/kg) Protein g/day: 140-190 (1.5-2.0 g/kg) [...] Dietitian - Solid Organ Transplant Contact via [employer] Chat * Anita Crystal PT - 10/29/2024 2:04 PM EDT Physical Therapy Initial Assessment Name: Blair Gilbert : 1985 Attending Physician: Harvey Domínguez III, MD Admission Diagnosis: Liver transplant recipient (CMS-HCC) [Z94.4] Date: 10/29/2024 Room: [place] [address] [address] Reviewed Pertinent hospital course: Yes Hospital Course [...] with functional mobility at: 10 or less Mcc Goal : Pt will [...] Active Problem List Diagnosis Decompensated cirrhosis ([facility]) Acute kidney injury superimposed on CKD ([facility]) Alcohol use disorder Metabolic encephalopathy Hypertension Other hyperlipidemia Thrombocytopenia ([facility]) Renal mass, left Abdominal pain Hypokalemia CKD (chronic kidney disease) stage 4, GFR 15-29 ml/min ([facility]) Metabolic acidosis with normal anion gap and bicarbonate losses GERD (gastroesophageal reflux disease) Hypothyroidism Itching Anemia BRBPR (bright red blood per rectum) SBP (spontaneous bacterial peritonitis) ([facility]) C Diff Diarrhea C. difficile diarrhea Neck pain with history of cervical spinal surgery * Shanel Pabon OT - 10/29/2024 1:23 PM EDT Occupational Therapy Initial Assessment Name: Blair Gilbert : 1985 Attending Physician: Harvey Domínguez III, MD Admission Diagnosis: Liver transplant recipient ([facility]) [Z94.4] Date: 10/29/2024 Room: [place] [address] [address] Reviewed Pertinent hospital course: Yes Hospital Course [...] (Comment) Leisure Activities: exercise, playing with his chnu retriever Currently recieving therapy services: No Pain Pain Score: 7 Pain Location: Abdomen (R side) Pain Descriptors: Aching;Throbbing Pain Intervention(s): Ambulation/increased activity;Repositioned Therapist reported pain to: engineer steam Oxygen Supplemental Oxygen Supplemental Oxygen: None (Room [...] distance ambulation in prep for IADL task Spareribs Trimmer Goal : Pt will complete bathing assessment and transfer termite control representative goal to be met in: 2 [...] Active Problem List Diagnosis Decompensated cirrhosis ([facility]) Acute kidney injury superimposed on CKD ([facility]) Alcohol use disorder Metabolic encephalopathy Hypertension Other hyperlipidemia Thrombocytopenia ([facility]) Renal mass, left Abdominal pain Hypokalemia CKD (chronic kidney disease) stage 4, GFR 15-29 ml/min ([facility]) Metabolic acidosis with normal anion gap and bicarbonate losses GERD (gastroesophageal reflux disease) Hypothyroidism Itching Anemia BRBPR (bright red blood per rectum) SBP (spontaneous bacterial peritonitis) ([facility]) C Diff Diarrhea C. difficile diarrhea Neck pain with history of cervical spinal surgery * Caron Santos CNP - 10/29/2024 10:30 AM EDT Images from the original note were not included. Transplant Nephrology Progress Note Patient: Blair Gilbert [id number] SICU-28/[facility] Date of Admit: 10/25/2024. LOS: 4 days. 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 Lauren Santos, SAMSON, DISCIPLINARY HEARING OFFICER, MOTION GRAPHICS ARTIST- Transplant Nephrology [phone] Preferred contact: secure chat The HPI, ROS, [...] EDT Pt seen, examined, and discussed with REVENUE SPECIALIST on 10/29/2024. reviewed the chart including the labs and imaging studies. My additional comments below. 39 y.o. 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 S/p SLK 10/25-10/26 Has great UOP 4.2L; 720 drain output Aaron Gonzalez MD, MEd, FASN * Kenyetta Hartman - 10/29/2024 10:07 AM EDT Liver Transplant Surgery Progress Note Name: Blair Gilbert CSN: [id number] Date: 10/29/2024 10:08 AM OR Date: 10/25/2024 [...] LACTATE 0.4* 0.5 0.3* Imaging US Duplex Goo-Pmp-Yepzjjk Comp Result Date: 10/28/2024 IMPRESSION: ABDOMINAL ULTRASOUND [...] at 10/27/2024 10:38 AM EDT US Duplex Oma-Ysj-Klamphy Comp Result Date: 10/27/2024 IMPRESSION: RIGHT UPPER [...] - 10/27/2024. Plan: Liver transplant recipient ([facility]) [Z94.4] Neuro: - Multimodal pain control: [...] SQH, SCDs DISPO: floor KENYETTA HARTMAN, MS4 [facility] Surgery 10:08 AM 10/29/2024 Cosigned by Lydia [...] 10/28/24699 - 10/29/2465810/29/24699 - 10/30/24 0659 Shift 2200-5790 9898-2210 3164-7094 24 Hour Total 3265-6896 6051-2582 3267-8645 24 Hour Total INTAKE P.O. 240 0 [...] IV infusion) 253.9 374.7 775.6 1404.2 Blood 6801 748 1019 Albumin 750 750 Volume (Transfuse RBC Transfusion Rate: Per dept routine) 310 310 Volume (Transfuse RBC Transfusion Rate: Per dept routine) 271 271 IV Piggyback 918.4 884 07 7692.4 Volume (mL) (micafungin (MYCAMINE) 50 mg in sodium chloride 0.9 % 100 mL Rjrd4Gos IVPB) 99.9 99.9 Volume (mL) (albumin human [...] month of prophylaxis Lavell Kramer MD 10/29/[phone] * John Moreno MD - 10/29/2024 6:47 AM EDT SURGICAL ICU PROGRESS NOTE 10/29/2024 6:47 AM Name: Blair Gilbert CSN: [id number] HPI: Blair Gilbert is a 39 y.o. [...] packing; Surgeon: Harvey Domínguez III, MD; Location: [facility]; Service: Transplant; Laterality: N/A; Home Medications Medication [...] to 4 times a day. DEXCOM G7 WILDLIFE SCIENCE PROFESSOR Misc Use reader as directed. DEXCOM G7 [...] times a day. naloxone (NARCAN) 4 mg/actuation [place] Apply 1 spray in one nostril if [...] 37 37 35 PO2ART 245* 182* 92 MOM0GER 22 21* 21* BEART -4.2* -4.8* -4.6* [...] at baseline or with provocation, shows no cmrdy-wn-oxeb atrial level shunt. - Pulmonary arteries: Systolic [...] Home pantoprazole 40mg daily, continue Last BM: BIOMEDICAL PHOTOGRAPHER - suppository today Bowel regimen: Miralax today, [...] results for input(s): TEGANGLE , TEGKTIME , XKZMPOQF78 , TEGMAXAMPL , TEGRTIME , CBMZ in [...] in sodium chloride 0.9 % 100 mL Alyb3Esn IVPB 50 mg Every 24 hours 10/27/2024 -- Admin Instructions: PROTECT FROM LIGHT FLUSH LINE w/NSS PRIOR TO ADMINISTRATION Use Tuam8Wny Adapter - Mix Thoroughly Before Administration Route: [...] instability DC today Arterial Line? R radial [place]- DC today Urinary Catheter? Berkowitz - Reason: [...] BID Continuous Infusions: HYDROmorphone 6 mg/30 mL REQUIREMENTS ENGINEER norepinephrine 4 mcg/min (10/27/24 2318) sodium chloride [...] 0659 10/28/24 07 - 10/29/24 0659 Shift 8242-1019 6279-2649 9318-7273 24 Hour Total 3660-6820 3695-0063 9651-0346 24 Hour Total INTAKE P.O. 0 120 [...] in sodium chloride 0.9 % 100 mL Xcvj1Grf IVPB) 100 100 Volume (mL) (albumin human 5%) 126 126 Volume (mL) (potassium chloride (KCl)/Sterile water 50 mL 20 mEq/50 mL IVPB 20 mEq) 100 100 Volume (mL) (AMPicillin 1 g in sodium chloride 0.9% 100 mL IVPB (Fuzx6Bwk)) 100.1 57 42.9 200 Volume (mL) (mycophenolate (CELLCEPT) 500 mg in dextrose 5% in water (D5W) 50 mL IVPB) 50 5.3 55.3 Shift Total(mL/kg) 2079.3(17) 1161(9.5) 787.3(6.4) 4027.6(32.9) OUTPUT Urine(mL/kg/hr) 2195(2.2) 1000(1) 900(0.9) 4095(1.4) 490 490 Urine 360 360 Output (mL) (IUC (Berkowitz) Triple-lumen (3-Way) 18 Fr.) 1835 6141 421 2864 490 490 Emesis/NG output 50 50 Drainage [...] month of prophylaxis Lavell Kramer MD 10/28/[phone] * Caron Santos CNP - 10/28/2024 9:00 AM EDT Images from the original note were not included. Transplant Nephrology Progress Note Patient: Blair Gilbert [id number] SICU-28/[facility]IC-28 Date of Admit: 10/25/2024. 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 Lauren Santos, DNP, DISCIPLINARY HEARING OFFICER, MOTION GRAPHICS ARTIST- Transplant Nephrology [phone] Preferred contact: secure chat The HPI, ROS, [...] Surgery Progress Note Name: Blair Gilbert CSN: [id number] Date: 10/28/2024 11:05 AM OR Date: 10/25/2024 - 10/27/2024 Subjective: 1 Day Post-Op Received one unit pRBCs overnight On low dose levo this morning Increasing tachycardia Reports worsening pain, on REQUIREMENTS ENGINEER Tolerated sips of clears No nausea/vomiting, no [...] Oral BID Continuous: HYDROmorphone 6 mg/30 mL REQUIREMENTS ENGINEER norepinephrine Stopped (10/28/24 0637) sodium chloride 0.9 [...] at 10/27/2024 10:38 AM EDT US Duplex Krn-Xwo-Duwdnog Comp Result Date: 10/27/2024 IMPRESSION: RIGHT UPPER [...] - 10/27/2024. Plan: Liver transplant recipient ([facility]) [Z94.4] Neuro: - Multimodal pain control: dilaudid REQUIREMENTS ENGINEER, tylenol, robaxin. PRN dilaudid for breakthrough CV: [...] SQH, SCDs DISPO: SICNevin PLATA MD, MS4 [facility] General Surgery 11:05 AM 10/28/2024 Cosigned by [...] 10/28/2024 6:17 AM Name: Blair Gilbert CSN: [id number] HPI: Blair Gilbert is a 39 y.o. [...] to 4 times a day. DEXCOM G7 WILDLIFE SCIENCE PROFESSOR Misc Use reader as directed. DEXCOM G7 [...] times a day. naloxone (NARCAN) 4 mg/actuation [place] Apply 1 spray in one nostril if [...] Oral BID Continuous: HYDROmorphone 6 mg/30 mL REQUIREMENTS ENGINEER insulin regular in 0.9 % sodium chloride [...] 37 37 35 PO2ART 245* 182* 92 MIM1PXD 22 21* 21* BEART -4.2* -4.8* -4.6* [...] at baseline or with provocation, shows no ptudk-on-arva atrial level shunt. - Pulmonary arteries: Systolic [...] while intubated,convert to PO today Last BM: BIOMEDICAL PHOTOGRAPHER Bowel regimen: Miralax today, hold senna til [...] ml IV Fluids: HYDROmorphone 6 mg/30 mL REQUIREMENTS ENGINEER insulin regular in 0.9 % sodium chloride, [...] results for input(s): TEGANGLE , TEGKTIME , DCKILDFK22 , TEGMAXAMPL , TEGRTIME , CBMZ in [...] in sodium chloride 0.9% 100 mL IVPB (Tmfc4Ufk) (Completed) 1 g Every 6 hours scheduled 10/26/2024 10/28/2024 Admin Instructions: Dosage may need to be adjusted for renal dysfunction. Full dose is 1g IV q6h Use Qzbd6Tta Adapter - Mix Thoroughly Before Administration Notes to Pharmacy: On entry level paralegal estimated creatinine clearance is 35.9 mL/min (A) [...] in sodium chloride 0.9 % 100 mL Crql7Fqt IVPB 50 mg Every 24 hours 10/27/2024 -- Admin Instructions: PROTECT FROM LIGHT FLUSH LINE w/NSS PRIOR TO ADMINISTRATION Use Fxjg5Uix Adapter - Mix Thoroughly Before Administration Route: [...] the Caprini Risk Score of 10 and [facility] transplant protocol, I recommend discharging on heparin 5,000 units subcutaneously q8h (facility) or Eliquis 2.5 mg PO BID (home) for 30 days total. Endof chemoprophylaxis: 11/25/24. Farhana Velasquez PharmD Candidate, 2025 Cosigned by Hillray Fernandes PharmD at 10/28/2024 11:50 AM EDT Associated attestation - Hillary Fernandes PharmD - 10/28/2024 11:50 AM EDT I agree with the plan of care as outlined below by the resident/fellow, and will oversee and assistin the transplant-related pharmaceutical care of the patient as needed. Hillary Fernandes PharmD, TXP Solid Organ Transplant Clinical Specialist Contact via [employer] Secure Chat Preferred O. [phone] * Chinedu Almeida RRT - 10/27/2024 1:10 [...] PCO2 37 10/27/2024 PO2ART 245 (H) 10/27/2024 GVZ1KRR 22 10/27/2024 BEART -4.2 (L) 10/27/2024 YKI8HPU 96.5 10/27/2024 P4JQSLKE 100 10/27/2024 Based on this SBT assessment [...] Surgery Progress Note Name: Blair Gilbert CSN: [id number] Date: 10/27/2024 11:40 AM OR Date: 10/25/2024 - 10/27/2024 Subjective: * Day of Surgery * Remains intubated in SICU Sedated but appropriately nods to questions No acute distress Objective: BP 100/48 Pulse 89 Temp 99 ??F (37.2 ??C) ([place]) Resp 9 Ht 6' 4 (1.93 m) [...] at 10/27/2024 10:38 AM EDT US Duplex Jbd-Bzc-Rlvnbou Comp Result Date: 10/27/2024 IMPRESSION: RIGHT UPPER [...] Problem List[1] Plan: Liver transplant recipient ([facility]) [Z94.4] Neuro: - Propofol/fentanyl CV: - [...] SQH, SCDs DISPO: SICU KENYETTA HARTMAN, MS4 [facility] Surgery 11:40 AM 10/27/2024 [1] Patient Active Problem List Diagnosis Decompensated cirrhosis ([facility]) Acute kidney injury superimposed on CKD [place] Alcohol use disorder Metabolic encephalopathy Hypertension Other hyperlipidemia Thrombocytopenia ([facility]) Renal mass, left Abdominal pain Hypokalemia CKD (chronic kidney disease) stage 4, GFR 15-29 ml/min [place] Metabolic acidosis with normal anion gap and bicarbonate losses GERD (gastroesophageal reflux disease) Hypothyroidism Itching Anemia BRBPR (bright red blood per rectum) SBP (spontaneous bacterial peritonitis) [place] C Diff Diarrhea C. [...] 10/27/2024 7:16 AM Name: Blair Gilbert CSN: [id number] HPI: Blair Gilbert is a 39 y.o. [...] in the morning and at bedtime. lancets [facility] Use to test blood sugar up to 4 times a day. Dx: 9.65. Brand per pharmacy / insurance preference. methocarbamoL (ROBAXIN) 500 MG tablet Take 1 tablet (500 mg total) by mouth 3 times a day. mycophenolate (CELLCEPT) 250 mg capsule Take 2 capsules (500 mg total) by mouth 2 times a day. naloxone (NARCAN) 4 mg/actuation [place] Apply 1 spray in one nostril if [...] 47* 36 37 PO2ART 127* 91 137* IKK1VRW 21* 22 20* BEART -5.4* -3.9* -6.4* [...] at baseline or with provocation, shows no dwgdw-dn-guaj atrial level shunt. - Pulmonary arteries: Systolic [...] IV pantoprazole while intubated, NPO Last BM: BIOMEDICAL PHOTOGRAPHER Bowel regimen: Senna/Miralax when able Nausea: Zofran [...] 10/27/2024 0715 Gross per 24 hour Intake 00096.82 ml Output 7060 ml Net 6224.82 ml [...] results for input(s): TEGANGLE , TEGKTIME , BORUXCUW65 , TEGMAXAMPL , TEGRTIME , CBMZ in [...] in sodium chloride 0.9% 100 mL IVPB (Uhsb7Xsb) 1 g Every 6 hours scheduled Admin Instructions: Dosage may need to be adjusted for renal dysfunction. Full dose is 1g IV q6h Use Wrrq4Dvi Adapter - Mix Thoroughly Before Administration Notes to Pharmacy: On entry level paralegal estimated creatinine clearance is 35.9 mL/min (A) (based on SCr of 3.87 mg/dL (H)). Route: Intravenous Linked Group 1: Placed in And Linked Group cefTRIAXone (ROCEPHIN) 2 g in sodium chloride 0.9 % 100 mL Spyz6Ivf Continuous - One Step Medications Only 10/27/2024 [...] R IJ Mac Arterial Line? R radial [place] Urinary Catheter? Berkowitz - Reason: Adequate I/O [...] Solid Organ Transplant Clinical Specialist Contact via [employer] Secure Chat Preferred * Simeon Guzman RN [...] copy placed in patient's chart. * Quinten eBst MD - 10/26/2024 8:17 AM EDT Transplant [...] 10/26/2024 0725 Gross per 24 hour Intake 29924.32 ml Output 2075 ml Net 38746.32 ml Consitutional: Intubated/sedated HEENT: Mucous membranes moist [...] the SAWYER/resident team. I agree with the SWAYER/resident???s findings and plan as documented in the [...] History and Physical Patient: Blair Gilbert CSN: [id number] History CC: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 naloxone (NARCAN) 4 mg/actuation [place] Apply 1 spray in one nostril if [...] No Physical Activity: Unknown (07/14/2024) Received from [facility] Exercise Vital Sign Days of Exercise per Week: Patient unable to answer Minutes of Exercise per Session: Not on file Stress: Patient Unable To Answer (07/14/2024) Received from [facility] [place] of Occupational Health - Occupational Stress Questionnaire Feeling of Stress : Patient unable to answer Social Connections: Patient Unable To Answer (07/14/2024) Received from [facility] Social Connection and Isolation Panel [NHANES] Frequency of Communication with Friends and Family: Patient unable to answer Frequency of Social Gatherings with Friends and Family: Patient unable to answer Attends Adventist Services: Patient unable to answer Active Member [...] admitted to SICU post-op. LEANDRA OG MD [facility] Surgery Liver Transplant Pager: [phone] 8:24 PM 10/25/2024 Cosigned by Harvey [...] Name: Blair Gilbert Date: 1985 Billing #: [id number] Date of Procedure: 10/25/2024 Diagnosis: End Stage Renal Disease Procedure: 1. Donor Kidney Transplant 2. Back Bench Preparation Donor Kidney 3. Baseline Kidney transplant biopsy 4. Insertion of Indwelling Stent 5. Removal of Perihepatic packing Surgeons * Flaquito Ba MD Montessori Program Director MD Shayan Findings: Low Hockey stick incision [...] donor was ABO O and UNOS ID [id number], Match Run [id number] ([facility]). This donor was a Donor after cardiac [...] donor serologies were negative for HBcAb+/HBV KIANA+/HCVAb+/HCV IKANA+. Procedure: Back bench preparation donor left kidney. [...] was then wanded with the lap detection care team assistant. The incision was ex tented 2 [...] and closure. Flaquito Ba MD Transplant Surgeon standard machine stitcher * Flaquito Ba MD - 10/27/2024 6:15 AM EDT TRANSPLANT KIDNEY with bile duct reconstruction Brief Op Note Blair Gilbert 10/27/2024 Pre-op Diagnosis: Acute kidney injury superimposed on CKD (CMS-HCC) [N17.9, N18.9] Post-op Diagnosis: same Procedure(s): TRANSPLANT KIDNEY Surgeon(s): MD Harvey Washington III, MD Anesthesia: General Endotracheal Staff: Clinical Massage Therapist: Chinedu Quinn RN Scrub Person: ST Angela Fellow: Kemar Sahni MD 2nd Clinical Massage Therapist: Marty Clark RN 3rd Clinical Massage Therapist: Candis Mcdaniel RN FINDINGS Berkowitz 3 day Drains: Intraabdominal (perihepatic) UNOS ID [id number], Match Run [id number] Kid WIT 27 min Kid CIT 33 [...] (Berkowitz) Triple-lumen (3-Way) 18 Fr. (Active) Status [place] Drainage 10/26/241999 Collection Container Standard drainage bag [...] Washington III, MD Anesthesia: General Endotracheal Staff: Clinical Massage Therapist: Chinedu Quinn RN Relief Clinical Massage Therapist: Michela Amos RN Relief Scrub: Stephani Blake RN Scrub Person: ST Angela Fellow: Kemar Sahni MD 2nd Clinical Massage Therapist: Marty Clark RN 3rd Clinical Massage Therapist: Candis Mcdaniel RN Estimated Blood Loss: 300 [...] (Berkowitz) Triple-lumen (3-Way) 18 Fr. (Active) Status [place] Drainage 10/26/241999 Collection Container Standard drainage bag [...] day Drains: 2 Intraabdominal (perihepatic) UNOS ID [id number], Match Run [id number] Donor: young DCD NRP Kid WIT 27 [...] III, MD - 10/27/2024 12:00 AM EDT [facility] PATIENT NAME: BLAIR GILBERT DATE OF : 1985 CSN: [id number] PHYSICIAN: Harvey Domínguez III, MD ADMIT DATE: 10/25/2024 DICTATED BY: Harvey Domínguez III, MD SURGERY DATE: 10/27/2024 OPERATIVE REPORT SURGEON: Harvey Domínguez III, MD SHEEP RANCHER SURGEON: Kemar Sahni MD. PREOPERATIVE DIAGNOSIS: Open [...] were made hemostatic with the argon beam paper folding machine operator. We assessed the flows of the portal [...] a mucocele formation. We then performed a mprx-ni-szfp choledochocholedochostomy in an end to end fashion [...] small umbilicalhernia that was closed with a izyfgp-qw-kcbmh 0 PDS suture. At this point, we [...] complications. MD CARLOS A HARMON III/DORIS JOB#: [id number] * Harvey Domínguez III, MD - 10/26/2024 7:00 AM EDT Patient Name: Blair Gilbert Date: 1985 Billing #: [id number] Date of Procedure: 10/25/2024 - 10/26/2024 Diagnosis: Chronic Hepatic Failure without coma Procedure: 1. Orthotopic Liver Transplant 2. Back Bench Preparation Donor Liver 3. Temporary portocaval shunt 4. Perihepatic packing for control of hemorrhage 5. Placement of external choledochal stent 6. Temporary abdominal closure Attending surgeons: Harvey Domínguez III, MD Montessori Program Director Surgeon(s): Sveta Judge MD Findings: Whole organ placed in piggyback fashion with suprahepatic cava of donor to common orifice of all three hepatic veins for IVC anastomosis. Donor main portal vein to recipient main portal vein. Donor common hepatic artery to recipient right hepatic artery. Temporary abdominal with perihepatic packingfor control of hemorrhage. Externalization of bile duct with 8 Slov[place] pediatric feeding tube. Portal Flow Modulation No [...] This donor was ABO O and UNOSID [id number], Match Run [id number]. This was a 42-year-old donation after circulatory [...] After completion of the outflow anastomosis, a Latvian clamp was placed across the donor suprahepatic [...] do a temporary abdominal closure. An 8 [place] pediatric feeding tube was brought through the [...] Sveta Alves III, MD Anesthesia: General Staff: Clinical Massage Therapist: Mak Maher RN; Marty Clark RN Scrub Person: ST Angela Resident: Thuy Leon MD skid machine operator: Jose Daniel Arana RRT Estimated Blood Loss: [...] (Removed) Number of days: 5 Surgery Information: -[facility]#: [id number] -ABO: O to O -Recipient: SLK candidate [...] 1:19 PM EDTAssociated Order(s): IP CONSULT TO BRAIDER SETTER [facility] Transplant Discharge Education Note Assessment: Received referral [...] Gomez, MSN, RN, NPD- Diabetes Education Office [phone] Schedule: M-F 8:00am-4:30pm * Ben Weiss RD - 10/27/2024 4:06 PM EDTAssociated Order(s): IP CONSULT TO NUTRITION SERVICES; IP CONSULT TO NUTRITION SERVICES TXP - Initial [facility] Medical Nutrition Therapy Reason(s) for Completion: Physician/Nursing [...] I/O: +23.2L net volume. Last BM Date: (BIOMEDICAL PHOTOGRAPHER). Admit Weight: 270 lb (122.5 kg) Current [...] Based on DBW of 93.1 kg Kcals/day: 0221-0467 (25-30 kcals/kg) Protein g/day: 140-190 (1.5-2.0 g/kg) [...] Dietitian - Solid Organ Transplant Contact via [employer] Chat * Lavell Kramer MD - 10/27/2024 11:09 AM EDTAssociated Order(s): INPATIENT CONSULT TO TRANSPLANT INFECTIOUS DISEASES Infectious Disease Consultation Patient: Blair Gilbert CSN: [id number] Assessment & Plan 39 y.o. M s/p [...] blood cx's if febrile Lavell Kramer MD [phone] Chief Complaint Long Qtc History of Present [...] No Physical Activity: Unknown (07/14/2024) Received from [facility] Exercise Vital Sign Days of Exercise per Week: Patient unable to answer Minutes of Exercise per Session: Not on file Stress: Patient Unable To Answer (07/14/2024) Received from [facility] [place] of Occupational Health - Occupational Stress Questionnaire Feeling of Stress : Patient unable to answer Social Connections: Patient Unable To Answer (07/14/2024) Received from [facility] Social Connection and Isolation Panel [NHANES] Frequency of Communication with Friends and Family: Patient unable to answer Frequency of Social Gatherings with Friends and Family: Patient unable to answer Attends Adventist Services: Patient unable to answer Active Member [...] to 4 times a day. DEXCOM G7 WILDLIFE SCIENCE PROFESSOR Misc Use reader as directed. DEXCOM G7 [...] and at bedtime. lancets (ACCU-CHEK SOFTCLIX LANCETS) [facility] Use to test blood sugar up to 4 times a day. methocarbamoL (ROBAXIN) 500 MG tablet Take 1 tablet (500 mg total) by mouth 3 times a day. mycophenolate (CELLCEPT) 250 mg capsule Take 2 capsules (500 mg total) by mouth 2 times a day. 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 - Avoid nephrotoxins (NSAIDs, NKIKI-I, ARB, Contrast dye) - Monitor renal panel with magnesium and phosphorus levels. - Renally dose all medications. - Avoid supratherapeutic FK levels. Plan - Monitor renal function. No indications for CAMP RECREATION SPECIALIST. Good UOP - Noted KT US WNL [...] preliminary until attending attestation. Lauren Santos, SAMSON, DISCIPLINARY HEARING OFFICER, MOTION GRAPHICS ARTIST- Transplant Nephrology [phone] Preferred contact: secure chat [1] Allergies Allergen [...] Gonzalez MD, MEd, FASN * Marcellus Hebert, PT [facility], MANAGER HOSPITAL - 10/27/2024 10:21 AM EDT HEALTH Care Management/Social Work Assessment Patient Information Patient Name: Blair Gilbert Hospital Day: 2 Inpatient/Observation: Inpatient Admit Date: 10/25/2024 Admission Diagnosis: Liver transplant recipient ([facility]) [Z94.4] Attending provider: Harvey Domínguez III, MD PCP: Enedina Mcguire NP Home Pharmacy: [facility] [address] [address] [facility] [address] [facility] [address] Issues related to obtaining medications: N/A Payor Information Medical Insurance Coverage: Payor: [facility] / Plan: [facility] GLOBAL / Product Type: *No Producttype* [...] History: 12 weeks of CD Treatement at [facility] Do you need Substance Abuse Treatment Resources?: [...] Was any abuse reported by patient?: No [place] Status & Connection to [facility] Services Status & Connection to [place] Services Are [...] resides with his spouse at their [place] in [place]. 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 Patient's LNOK:Spouse, Abdiaziz Gilbert, Patient has no current or past history of suicidal/homicidal ideation. Patient has a history of mental health diagnoses, PTSD and Generalized Anxiety Disorder. Patient is connected with TransplantPsychiatrist and prescribed Prozac. Patient has a history of alcohol use and has completed 12 weeksof CD Treatment at [facility]. Spouse explained that he will complete a 6 month virtual program post transplant but could not recall the name of the program. Patient has no current tobacco use. No previous need or recommendation for home health care services and [place] placements at [place] [facility] and/or inpatient rehab program. Patient has [...] as appropriate. NUBIA Escalera, RONALDO Phone Number: [phone] * John Moreno MD - 10/26/2024 3:41 AM EDT SURGICAL ICU CONSULT NOTE 10/26/2024 3:41 AM Name: Blair Gilbert CSN: [id number] HPI: Blair Gilbert is a 39 y.o. [...] at 9:00 PM naloxone (NARCAN) 4 mg/actuation [place] Apply 1 spray in one nostril if [...] % 250 mL infusion 2.5 mcg/min (10/26/24 6336) insulin regular in 0.9 % sodium chloride [...] input(s): PHART , PCO2 , PO2ART , OZV5JBA , BEART in the last 72 hours. [...] at baseline or with provocation, shows no bvpvi-pm-udur atrial level shunt. - Pulmonary arteries: Systolic [...] IV pantoprazole while intubated, NPO Last BM: BIOMEDICAL PHOTOGRAPHER Bowel regimen: Senna/Miralax when able Nausea: Zofran PRN FLUID/ELECTROLYTES Recent Labs 10/25/24 2217 NA 137 K 2.1* CL 100 CO2 20* BUN 74* CREATININE 3.87* CALCIUM 9.3 PHOS 5.9* GLUCOSE 114* Intake/Output Summary (Last 24 hours) at 10/26/2024 0341 Last data filed at 10/26/2024 0326 Gross per 24 hour Intake 27083 ml Output 675 ml Net 88556 ml IV Fluids: EPINEPHrine (ADRENALIN) 10 mg in sodium chloride 0.9 % 250 mL infusion, Last Rate: 2.5 mcg/min (10/26/24 0339) insulin regular in 0.9 % sodium chloride norepinephrine, Last Rate: 18 mcg/min (10/26/24 7903) vasopressin, Last Rate: 0.04 Units/min (10/26/24 0244) [...] results for input(s): TEGANGLE , TEGKTIME , XYKFGJQL51 , TEGMAXAMPL , TEGRTIME , CBMZ in [...] in sodium chloride 0.9% 100 mL IVPB (Fgnr6Imj) 2 g Every 6 hours 10/26/2024 -- Admin Instructions: Use Onjc4Kkf Adapter - Mix Thoroughly Before Administration Notes to Pharmacy: On entry level paralegal estimated creatinine clearance is 35.9 mL/min (A) (based on SCr of 3.87 mg/dL (H)). Route: Intravenous AMPicillin 2 g in sodium chloride 0.9% 100 mL IVPB (Zupp2Iyg) 2 g Once 10/26/2024 -- Admin Instructions: Use Tsam1Wqe Adapter - Mix Thoroughly Before Administration Notes to Pharmacy: On entry level paralegal estimated creatinine clearance is 35.9 mL/min (A) (based on SCr of 3.87 mg/dL (H)). Route: Intravenous cefTRIAXone (ROCEPHIN) 2 g in sodium chloride 0.9 % 100 mL Sajd4Sko (Completed) 2 g Once 10/25/2024 10/26/2024 Admin Instructions: Use Hqpm8Xax Adapter - Mix Thoroughly Before Administration Route: [...] 47 (H) 10/26/2024 PO2ART 127 (H) 10/26/2024 VVU3RGW 21 (L) 10/26/2024 BEART -5.4 (L) 10/26/2024 VLF1RDX 94.6 (L) 10/26/2024 E7ZJGJWC 98 10/26/2024 P:F ratio = 363 CARDIOVASCULAR: [...] Acute Care Surgery, and Surgical Critical Care [facility] Academic Office [phone] For Transfers, call [phone] documented in this encounter Nursing Notes * Paulette Flannery RN - 11/02/2024 6:23 PM EDT Reviewed and completed AVS with patient. Discharge education completed. Discharge medication delivered to patient room. All PIVs removed. Patient denies any further questions or concerns. Transport called. Patient leaving unit with all belongings. * Vivi Newtno RN - 10/31/2024 1:42 PM EDT Oral [...] Escalera, RONALDO - 10/31/2024 11:34 AM EDT [facility] Case Management/Social Work Department Progress Note Patient Information Patient Name: Blair Gilbert Hospital day: 6 Inpatient/Observation: Inpatient Level of Care: Transplant Admit date: 10/25/2024 Admission diagnosis: Liver transplant recipient (CMS-HCC) [Z94.4] PMH: has a past medical history of Alcoholic cirrhosis of liver (CMS-HCC), Esophageal varices (CMS-HCC), Hepatorenal syndrome (CMS-HCC), Hypertension, Other hyperlipidemia (07/26/2024), Renal cell carcinoma (CMS-HCC), Thrombocytopenia ([facility]), and Thyroid disease. PCP: Enedina Mcguire NP Home Pharmacy: [facility] [address] [place] [address] [place] [address] [facility] [address] [facility] [address] [facility] [place] [address] [facility] [id number] Medical Insurance Coverage: Payor: [facility] / Plan: [employer] [...] that there were no accepting C agencies([facility], [facility], [facility]) and patient would need to outpatient for PT/OT and labs. Discharge Plan Anticipated discharge plan: Home with HHC vs Home with outpatient Anticipated discharge date: 11/01 CM/MEREDITH will continue to follow and remain available for discharge planning needs. NUBIA Escalera, RONALDO Cell [phone] * Plan of Care - Paulette Flannery [...] Citlaly Nova - 10/29/2024 1:53 PM EDT [facility] Case Management/Social Work Department [...] disease. PCP: Enedina Mcguire NP Home Pharmacy: [facility] [address] [place] [address] [facility] [address] [facility] [facility] [address] [facility] NAA Baum - [address] [facility] My[place] [address] [facility] [place] [address] Medical Insurance Coverage: Payor: [employer] [...] submitted blanket HHC referral to [facility] [place], [facility] [place], [facility], and [facility]. Awaiting responses. SW to followpending [...] available for discharge planning needs. NUBIA Rhodes, MANAGER HOSPITAL Inpatient Slab Installer/Care Coordination [phone] * Plan of Care - Soco Yap [...] Escalera LSW - 10/28/2024 2:29 PM EDT [facility] Case Management/Social Work Department [...] disease. PCP: Enedina Mcguire NP Home Pharmacy: [facility] [address] [place], [facility] [address] [address] [facility] [address] [facility] [address] [facility] [place] - [place] - [address] [place] [address] Medical Insurance Coverage: Payor: [employer] [...] discharge planning needs. NUBIA Escalera, RONALDO Cell [phone] * Plan of Care - Elaine Carrillo [...] at all times. Outcome: Completed Problem: Non-violent, cjq-aaxj-ipgbkmwuwno restraints Description: Less restrictive alternative interventions will [...] of medical procedures, or protection of medical appointment clerk access. Outcome: Completed * Plan of Care [...] foods as appropriate. Outcome: Progressing Problem: Non-violent, ego-tssr-bgbrkspmykb restraints Description: Less restrictive alternative interventions will [...] of medical procedures, or protection of medical appointment clerk access. Outcome: Progressing * Plan of Care - Shanel Shen RN - 10/27/2024 9:00 AM EDT Problem: Non-violent, lvi-uqtj-kwgcjxqbkkg restraints Description: Less restrictive alternative interventions will [...] - 10/26/2024 7:41 PM EDT Problem: Non-violent, cmn-zjbq-xubdqwxddir restraints Description: Less restrictive alternative interventions will [...] of medical procedures, or protection of medical appointment clerk access. Outcome: Not Progressing Patient in bilateral [...] restraint flowsheet for further documentation. Problem: Non-violent, gmu-hyqp-prmgrqycccz restraints Description: Less restrictive alternative interventions will [...] of medical procedures, or protection of medical appointment clerk access. Outcome: Progressing * Plan of Care [...] Routine Acute kidney injury superimposed on CKD ([facility]) Release Upon Ordering for 1 Occurrences starting 10/27/2024 Fungus culture Microbiology Routine Acute kidney injury superimposed on CKD ([facility]) Release Upon Ordering for 1 Occurrences starting 10/27/2024 Routine Culture plus Stain Microbiology Routine Acute kidney injury superimposed on CKD ([facility]) Release Upon Ordering for 1 Occurrences starting 10/27/2024 Surgical Pathology Exam Pathology and Cytology Routine Acute kidney injury superimposed on CKD ([facility]) Release Upon Ordering for 1 Occurrences starting [...] Routine 10/31/2024 11:59 AM EDT US DUPLEX EKT-[id number]-[id number] COMPLETE Routine 10/31/2024 10:19 AM EDT US [...] Routine 10/28/2024 5:31 PM EDT US DUPLEX GDR-KITLMV-KEEXAQY COMPLETE STAT 10/28/2024 4:23 PM EDT US [...] Routine 10/27/2024 10:00 AM EDT US DUPLEX YHH-UAQRWQ-[id number] COMPLETE STAT 10/27/2024 9:51 AM EDT US [...] Acute kidney injury superimposed on CKD ([facility]) ME RENAL ALTRNSPLJ IMPLTJ GRF W/SUPERVISOR HAND WORKERS NEPHRECTOMY 10/27/2024 2:32 AM EDT Acute kidney [...] - 100 mg/dL 11/02/2024 5:45 PM EDT [facility] Blood 11/02/2024 5:44 PM EDT 11/02/2024 5:45 PM EDT us Harvey Domínguez III, MD POINT OF CARE TEST ORDERABLES Final Result [facility] [address] [place] [address], [facility] * (ABNORMAL) POC Glucose Monitoring Device (11/02/2024 3:34 PM EDT) POC Glucose Monitoring Device 208(H) 70 - 100 mg/dL 11/02/2024 3:35 PM EDT [facility] Blood 11/02/2024 3:34 PM EDT 11/02/2024 3:35 PM EDT Harvey Domínguez III, MD POINT OF CARE TEST ORDERABLES Final Result Performing Organization Address City/[facility]/ZIP Co de Phone Number [facility] [address] [facility]. [address] * (ABNORMAL) POC Glucose Monitoring Device (11/02/2024 1:18 PM EDT) POC Glucose Monitoring Device 225(H) 70 - 100 mg/dL 11/02/2024 1:19 PM EDT [facility] Blood 11/02/2024 1:18 PM EDT 11/02/2024 1:19 PM EDT Harvey Domínguez III, MD POINT OF CARE TEST ORDERABLES Final Result Performing Organization Address [facility] Co de Phone Number [facility] [address] [facility]. [address] * (ABNORMAL) POC Glucose Monitoring Device (11/02/2024 8:59 AM EDT) POC Glucose Monitoring Device 129(H) 70 - 100 mg/dL 11/02/2024 9:00 AM EDT [facility] Blood 11/02/2024 8:59 AM EDT 11/02/2024 9:00 AM EDT Harvey Domínguez III, MD POINT OF CARE TEST ORDERABLES Final Result Performing Organization Address City/[facility] Co de Phone Number [facility] [address] [facility]. [address] * Tacrolimus level (11/02/2024 5:53 AM EDT) Tacrolimus (LC-MS) 7.4 3.0 - 15.0 ng/mL 11/02/2024 2:23 PM EDT [facility] Comment:Performed via liquid chromatography tandem mass spectrometry. Detection limit: 1 ng/mL. Individual target concentrations may vary due to target organ and time after transplant. This test has been developed and its performance characteristics determined by [facility] which is certified under the Clinical Laboratory [...] PharmD LAB BLOOD ORDERABLES Denisse valle Result [facility] [address] [facility] [place] [address], [facility] * (ABNORMAL) Renal Function Panel w/EGFR (11/02/2024 5:53 AM EDT) Sodium 140 133 - 146 mmol/L 11/02/2024 6:47 AM EDT [facility] Potassium 3.3(L) 3.5 - 5.3 mmol/L 11/02/2024 6:47 AM EDT [facility] Chloride 107 98 - 110 mmol/L 11/02/2024 6:47 AM EDT [facility] CO2 25 21 - 33 mmol/L 11/02/2024 6:47 AM EDT [facility] Anion Gap 8 3 - 16 mmol/L 11/02/2024 6:47 AM EDT [facility] BUN 31(H) 7 - 25 mg/dL 11/02/2024 6:47 AM EDT [facility] Creatinine 1.08 0.60 - 1.30 mg/dL 11/02/2024 6:47 AM EDT [facility] Glucose 150(H) 70 - 100 mg/dL 11/02/2024 6:47 AM EDT [facility] Calcium 7.8(L) 8.6 - 10.3 mg/dL 11/02/2024 6:47 AM EDT [facility] Phosphorus 2.0(L) 2.1 - 4.7 mg/dL 11/02/2024 6:47 AM EDT [facility] Albumin 3.2(L) 3.5 - 5.7 g/dL 11/02/2024 6:47 AM EDT [facility] Osmolality, Calculated 299 278 - 305 mOsm/kg 11/02/2024 6:47 AM EDT [facility] EGFR 88 11/02/2024 6:47 AM EDT [facility] Comment:As of [...] 5:53 AM EDT 11/02/2024 6:12 AM EDT Escapio LAB BLOOD ORDERABLES Denisse l Result Performing Organization Address [facility]/ZIP Co de Phone Number [facility] [address] * (ABNORMAL) Magnesium (11/02/2024 5:53 AM EDT) Magnesium 1.3(L) 1.5 - 2.5 mg/dL 11/02/2024 6:47 AM EDT [facility] Plasma 11/02/2024 5:53 AM EDT 11/02/2024 6:12 AM EDT [employer] LAB BLOOD ORDERABLES Denisse l Result [facility] [address] [place], [place] [address] * (ABNORMAL) Hepatic Function Panel (11/02/2024 5:53 AM EDT) Total Bilirubin 1.6(H) 0.0 - 1.5 mg/dL 11/02/2024 6:47 AM EDT [facility] Bilirubin, Direct 0.81(H) 0.00 - 0.40 mg/dL 11/02/2024 6:47 AM EDT [facility] AST 30 13 - 39 U/L 11/02/2024 6:47 AM EDT [facility] ALT 66(H) 7 - 52 U/L 11/02/2024 6:47 AM EDT [facility] Alkaline Phosphatase 126(H) 36 - 125 U/L 11/02/2024 6:47 AM EDT [facility] Total Protein 4.6(L) 6.4 - 8.9 g/dL 11/02/2024 6:47 AM EDT [facility] Albumin 3.2(L) 3.5 - 5.7 g/dL 11/02/2024 6:47 AM EDT [facility] Bilirubin, Indirect 0.79 0.00 - 1.10 mg/dL 11/02/2024 6:47 AM EDT [facility] Plasma 11/02/2024 5:53 AM EDT 11/02/2024 6:12 AM EDT us Beata Horner [facility] BLOOD ORDERABLES Denisse l Result [facility] [address] [place], [place] [address] * (ABNORMAL) CBC (11/02/2024 5:53 AM EDT) WBC 5.8 3.8 - 10.8 10E3/uL 11/02/2024 6:21 AM EDT [facility] RBC 3.12(L) 4.20 - 5.80 10E6/uL 11/02/2024 6:21 AM EDT [facility] Hemoglobin 9.2(L) 13.2 - 17.1 g/dL 11/02/2024 6:21 AM EDT [facility] Hematocrit 27.5(L) 38.5 - 50.0 % 11/02/2024 6:21 AM EDT [facility] MCV 87.9 80.0 - 100.0 fL 11/02/2024 6:21 AM EDT [facility] MCH 29.5 27.0 - 33.0 pg 11/02/2024 6:21 AM EDT [facility] MCHC 33.5 32.0 - 36.0 g/dL 11/02/2024 6:21 AM EDT [facility] RDW 17.5(H) 11.0 - 15.0 % 11/02/2024 6:21 AM EDT [facility] Platelets 61(L) 140 - 400 10E3/uL 11/02/2024 6:21 AM EDT [facility] MPV 7.9 7.5 - 11.5 fL 11/02/2024 6:21 AM EDT [facility] Whole Blood 11/02/2024 5:53 AM EDT 11/02/2024 6:12 AM EDT us Beata Horner REVENUE SPECIALIST LAB BLOOD ORDERABLES Denisse l Result [facility] [address] * (ABNORMAL) POC Glucose Monitoring Device (11/01/2024 9:26 PM EDT) [facility] POC Glucose Monitoring Device 199(H) 70 - 100 mg/dL 11/01/2024 9:27 PM EDT [facility] Blood 11/01/2024 9:26 PM EDT 11/01/2024 9:27 PM EDT Harvey Domínguez III, MD POINT OF CARE TEST ORDERABLES Final Result Performing Organization Address [facility]/State/ZIP Co de Phone Number [facility] [address] * (ABNORMAL) POC Glucose Monitoring Device (11/01/2024 5:04 PM EDT) [facility] POC Glucose Monitoring Device 255(H) 70 - 100 mg/dL 11/01/2024 5:05 PM EDT [facility] Blood 11/01/2024 5:04 PM EDT 11/01/2024 5:05 PM EDT Harvey Domínguez III, MD POINT OF CARE TEST ORDERABLES Final Result Performing Organization Address City/State/[facility] Co de Phone Number [facility] [address] [place], [place] [address] * (ABNORMAL) Renal Function Panel w/EGFR, STAT (11/01/2024 2:17 PM EDT) [facility] Sodium 139 133 - 146 mmol/L 11/01/2024 3:10 PM EDT [facility] Potassium 3.3(L) 3.5 - 5.3 mmol/L 11/01/2024 3:10 PM EDT [facility] Chloride 107 98 - 110 mmol/L 11/01/2024 3:10 PM EDT [facility] CO2 24 21 - 33 mmol/L 11/01/2024 3:10 PM EDT [facility] Anion Gap 8 3 - 16 mmol/L 11/01/2024 3:10 PM EDT [facility] BUN 35(H) 7 - 25 mg/dL 11/01/2024 3:10 PM EDT [facility] Creatinine 1.22 0.60 - 1.30 mg/dL 11/01/2024 3:10 PM EDT [facility] Glucose 203(H) 70 - 100 mg/dL 11/01/2024 3:10 PM EDT [facility] Calcium 8.3(L) 8.6 - 10.3 mg/dL 11/01/2024 3:10 PM EDT [facility] Phosphorus 2.2 2.1 - 4.7 mg/dL 11/01/2024 3:10 PM EDT [facility] Albumin 3.4(L) 3.5 - 5.7 g/dL 11/01/2024 3:10 PM EDT [facility] Osmolality, Calculated 302 278 - 305 mOsm/kg 11/01/2024 3:10 PM EDT [facility] EGFR 76 11/01/2024 3:10 PM EDT [facility] Comment:As [...] Marks MD LAB BLOOD ORDERABLES Final Result [facility] [address] [place] [id number], [facility] * [...] - 100 mg/dL 11/01/2024 12:23 PM EDT [facility] Blood 11/01/2024 12:2 2 PM EDT 11/01/2024 12:23 PM EDT Harvey Domínguez III, MD POINT OF CARE TEST ORDERABLES Final Result [facility] [address] [place] [address], [facility] * (ABNORMAL) POC Glucose Monitoring Device (11/01/2024 8:50 AM EDT) POC Glucose Monitoring Device 175(H) 70 - 100 mg/dL 11/01/2024 8:51 AM EDT [facility] Blood 11/01/2024 8:50 AM EDT 11/01/2024 8:51 AM EDT Harvey Domínguez III, MD POINT OF CARE TEST ORDERABLES Final Result Performing Organization Address City/[facility] Co de Phone Number [facility] [address] * Tacrolimus level (11/01/2024 6:01 AM EDT) Pathologist [facility] Tacrolimus (LC-MS) 7.5 3.0 - 15.0 ng/mL 11/01/2024 12:14 PM EDT [facility] Comment:Performed via liquid chromatography tandem [...] ORDERABLES Denisse l Result Performing Organization Address City/[facility] Co de Phone Number [facility] [address] [facility]. [address] * (ABNORMAL) Renal Function Panel w/EGFR (11/01/2024 6:01 AM EDT) Sodium 139 133 - 146 mmol/L 11/01/2024 6:57 AM EDT [facility] Potassium 3.3(L) 3.5 - 5.3 mmol/L 11/01/2024 6:57 AM EDT [facility] Chloride 108 98 - 110 mmol/L 11/01/2024 6:57 AM EDT [facility] CO2 22 21 - 33 mmol/L 11/01/2024 6:57 AM EDT [facility] Anion Gap 9 3 - 16 mmol/L 11/01/2024 6:57 AM EDT [facility] BUN 37(H) 7 - 25 mg/dL 11/01/2024 6:57 AM EDT [facility] Creatinine 1.30 0.60 - 1.30 mg/dL 11/01/2024 6:57 AM EDT [facility] Glucose 163(H) 70 - 100 mg/dL 11/01/2024 6:57 AM EDT [facility] Calcium 8.2(L) 8.6 - 10.3 mg/dL 11/01/2024 6:57 AM EDT [facility] Phosphorus 2.9 2.1 - 4.7 mg/dL 11/01/2024 6:57 AM EDT [facility] Albumin 3.1(L) 3.5 - 5.7 g/dL 11/01/2024 6:57 AM EDT [facility] Osmolality, Calculated 300 278 - 305 mOsm/kg 11/01/2024 6:57 AM EDT [facility] EGFR 71 11/01/2024 6:57 AM EDT [facility] Comment:As of [...] 11/01/2024 6:20 AM EDT us Beata Horner [facility] BLOOD ORDERABLES Denisse l Result [facility] [address] * Magnesium (11/01/2024 6:01 AM EDT) Magnesium 1.5 1.5 - 2.5 mg/dL 11/01/2024 6:57 AM EDT [facility] Plasma 11/01/2024 6:01 AM EDT 11/01/2024 6:20 AM EDT Beata Horner [facility] BLOOD ORDERABLES Denisse l Result [facility] [address] [facility]. [address] * (ABNORMAL) Hepatic Function Panel (11/01/2024 6:01 AM EDT) Total Bilirubin 2.0(H) 0.0 - 1.5 mg/dL 11/01/2024 6:57 AM EDT [facility] Bilirubin, Direct 1.06(H) 0.00 - 0.40 mg/dL 11/01/2024 6:57 AM EDT [facility] AST 21 13 - 39 U/L 11/01/2024 6:57 AM EDT [facility] ALT 62(H) 7 - 52 U/L 11/01/2024 6:57 AM EDT [facility] Alkaline Phosphatase 114 36 - 125 U/L 11/01/2024 6:57 AM EDT [facility] Total Protein 4.6(L) 6.4 - 8.9 g/dL 11/01/2024 6:57 AM EDT [facility] Albumin 3.1(L) 3.5 - 5.7 g/dL 11/01/2024 6:57 AM EDT [facility] Bilirubin, Indirect 0.94 0.00 - 1.10 mg/dL 11/01/2024 6:57 AM EDT [facility] Plasma 11/01/2024 6:01 AM EDT 11/01/2024 6:20 AM EDT Beata Horner REVENUE SPECIALIST LAB BLOOD ORDERABLES Denisse l Result [facility] [address] * (ABNORMAL) CBC (11/01/2024 6:01 AM EDT) WBC 5.9 3.8 - 10.8 10E3/uL 11/01/2024 6:29 AM EDT [facility] RBC 3.19(L) 4.20 - 5.80 10E6/uL 11/01/2024 6:29 AM EDT [facility] Hemoglobin 9.5(L) 13.2 - 17.1 g/dL 11/01/2024 6:29 AM EDT [facility] Hematocrit 27.8(L) 38.5 - 50.0 % 11/01/2024 6:29 AM EDT [facility] MCV 87.1 80.0 - 100.0 fL 11/01/2024 6:29 AM EDT [facility] MCH 29.9 27.0 - 33.0 pg 11/01/2024 6:29 AM EDT [facility] MCHC 34.3 32.0 - 36.0 g/dL 11/01/2024 6:29 AM EDT [facility] RDW 17.4(H) 11.0 - 15.0 % 11/01/2024 6:29 AM EDT [facility] Platelets 56(L) 140 - 400 10E3/uL 11/01/2024 6:29 AM EDT [facility] MPV 8.3 7.5 - 11.5 fL 11/01/2024 6:29 AM EDT [facility] Whole Blood 11/01/2024 6:01 AM EDT 11/01/2024 6:19 AM EDT Beata Horner CNP LAB BLOOD ORDERABLES Denisse l Result [facility] [address] * (ABNORMAL) POC Glucose Monitoring Device (10/31/2024 9:15 PM EDT) POC Glucose Monitoring Device 171(H) 70 - 100 mg/dL 10/31/2024 9:15 PM EDT [facility] Blood 10/31/2024 9:15 PM EDT 10/31/2024 9:15 PM EDT Harvey Domínguez III, MD POINT OF CARE TEST ORDERABLES Final Result Performing Organization Address City/[facility]/ZIP Co de Phone Number [facility] [address] [facility]. [address] * (ABNORMAL) POC Glucose Monitoring Device (10/31/2024 5:56 PM EDT) POC Glucose Monitoring Device 179(H) 70 - 100 mg/dL 10/31/2024 5:57 PM EDT [facility] Blood 10/31/2024 5:56 PM EDT 10/31/2024 5:57 PM EDT Harvey Domínguez III, MD POINT OF CARE TEST ORDERABLES Final Result Performing Organization Address [facility] de Phone Number [facility] [address] [facility]. [address] * CT Abdomen and Pelvis WO [...] Adrenal gland: No focal nodule seen. Kidneys: [place] kidneys noted with nonobstructing calcifications on the right. Findings of postsurgical changes in the left [place] kidney. Mild right hydronephrosis without an obstructive [...] Adrenal gland: No focal nodule seen. Kidneys: [place] kidneys noted with nonobstructing calcifications on theright. Findings of postsurgical changes in the left [place] kidney. Mildright hydronephrosis without an obstructive course [...] QT: 400 ms QTc: 456 ms P [place]: 49 degrees R [place]: 3 degrees T [place]: 14 degrees Diagnosis Line: NORMAL SINUS RHYTHM ^ NORMAL ECG ^ ^ Confirmed by MD REID JAMES ([id number]) on 11/02/2024 6:56:52 AM Priti Geiger CNP ECG ORDERABLES Final Result MUSE * (ABNORMAL) Urinalysis w/Rfl to Microscopic (10/31/2024 1:18 PM EDT) Color, UA Straw Yellow,Straw 10/31/2024 1:46 PM EDT [facility] Clarity, UA Clear Clear 10/31/2024 1:46 PM EDT [facility] Specific [place], UA 1.013 1.005 - 1.035 10/31/2024 1:46 PM EDT [facility] pH, UA 6.5 5.0 - 8.0 10/31/2024 1:46 PM EDT [facility] Protein, UA Negative Negative mg/dL 10/31/2024 1:46 PM EDT [facility] Glucose, UA Negative Negative mg/dL 10/31/2024 1:46 PM EDT [facility] Ketones, UA Negative Negative mg/dL 10/31/2024 1:46 PM EDT [facility] Bilirubin, UA Negative Negative 10/31/2024 1:46 PM EDT [facility] Blood, UA Large(A) Negative 10/31/2024 1:46 PM EDT [facility] Nitrite, UA Negative Negative 10/31/2024 1:46 PM EDT [facility] Urobilinogen, UA <2.0 0.2 - 1.9 mg/dL 10/31/2024 1:46 PM EDT [facility] Leukocyte Esterase, UA Negative Negative 10/31/2024 1:46 PM EDT [facility] RBC, UA >100(H) 0 - 3 /HPF 10/31/2024 1:46 PM EDT [facility] WBC, UA 3 0 - 5 /HPF 10/31/2024 1:46 PM EDT [facility] Hyaline Casts, UA 3(H) 0 - 2 /LPF 10/31/2024 1:46 PM EDT [facility] Urine 10/31/2024 1:18 PM EDT 10/31/2024 1:32 PM EDT Priti Geiger REVENUE SPECIALIST URINE ORDERABLES Final Result [facility] [address] * (ABNORMAL) Post Kidney Transplant Urine Culture (10/31/2024 1:18 PM EDT) Culture Result Enterococcus faecium, Vancomycin Resistant(A) [facility] Comment: 1,000- <10,000 cfu/mL Identified [...] MICROBIOLOGY - GENERAL ORDERA BLES Final Result [facility] [address] [facility]. [address] * (ABNORMAL) POC Glucose Monitoring Device (10/31/2024 11:59 AM EDT) [facility] POC Glucose Monitoring Device 130(H) 70 - 100 mg/dL 10/31/2024 12:21 PM EDT [facility] Blood 10/31/2024 11:5 9 AM EDT 10/31/2024 12:21 PM EDT Harvey Domínguez III, MD POINT OF CARE TEST ORDERABLES Final Result [facility] [address] [facility]. [address] * US Abdomen Limited (10/31/2024 10:19 [...] EXAM: US ABDOMEN LIMITED EXAM: US DUPLEX [id number] COMPLETE INDICATION: Post-op liver transplant COMPARISON: None [...] visualized secondary to poor acoustic windows. The [place] right kidney measures 11.6 cm in length. [...] EXAM: US ABDOMEN LIMITED EXAM: US DUPLEX [id number] COMPLETE INDICATION: Post-op liver transplant COMPARISON: None [...] well visualized secondary to poor acousticwindows. The [place] right kidney measures 11.6 cm in length. [...] 10:35 AM EDT us Beatakayleigh Garland Evens REVENUE SPECIALIST IMG US ORDERABLES Final R esult * [...] at 10/31/2024 10:29 AM EDT Beata Horner [facility] US ORDERABLES Final R esult * US Duplex Baf-Nha-Ixhjptm Comp (10/31/2024 10:19 AM EDT) Anatomical Region [...] EXAM: US ABDOMEN LIMITED EXAM: US DUPLEX [id number] COMPLETE INDICATION: Post-op liver transplant COMPARISON: None [...] visualized secondary to poor acoustic windows. The [place] right kidney measures 11.6 cm in length. [...] EXAM: US ABDOMEN LIMITED EXAM: US DUPLEX [id number] COMPLETE INDICATION: Post-op liver transplant COMPARISON: None [...] well visualized secondary to poor acousticwindows. The [place] right kidney measures 11.6 cm in length. [...] 10/31/2024 10:35 AM EDT us Beata Horner [facility] IMG US ORDERABLES Final R esult * ECG 12-lead (MUSE) (10/31/2024 8:57 AM EDT) 10/31/2024 8:57 AM EDT Narrative MUSE - 11/01/2024 9:21 AM EDT Ventricular Rate: 83 BPM Atrial Rate: 83 BPM P-R Interval: 168 ms QRS Duration: 102 ms QT: 392 ms QTc: 460 ms P [place]: 64 degrees R [place]: -18 degrees T [place]: 7 degrees Diagnosis Line: NORMAL SINUS RHYTHM ^ NORMAL ECG ^ ^ Confirmed by MD JOE, [facility] ([id number]) on 11/01/2024 9:21:13 AM Priti Geiger [facility] ECG ORDERABLES Final Result MUSE * (ABNORMAL) POC Glucose Monitoring Device (10/31/2024 8:44 AM EDT) [facility] POC Glucose Monitoring Device 145(H) 70 - 100 mg/dL 10/31/2024 8:45 AM EDT [facility] Blood 10/31/2024 8:44 AM EDT 10/31/2024 8:44 AM EDT Harvey oDmínguez III, MD POINT OF CARE TEST ORDERABLES Final Result [facility] [id number] * Tacrolimus level (10/31/2024 6:40 AM EDT) Pathologist [facility] Tacrolimus (LC-MS) 8.4 3.0 - 15.0 ng/mL 10/31/2024 10:05 AM EDT [facility] Comment:Performed via liquid chromatography tandem mass spectrometry. Detection limit: 1 ng/mL. Individual target concentrations may vary due to target organ and time after transplant. This test has been developed and its performance characteristics determined by [facility] which is certified under the Clinical Laboratory [...] PharmD LAB BLOOD ORDERABLES Denisse l Result [facility] [address]. [address] * (ABNORMAL) Renal Function Panel w/EGFR (10/31/2024 6:40 AM EDT) [facility] Sodium 141 133 - 146 mmol/L 10/31/2024 8:09 AM EDT [facility] Potassium 3.5 3.5 - 5.3 mmol/L 10/31/2024 8:09 AM EDT [facility] Chloride 111(H) 98 - 110 mmol/L 10/31/2024 8:09 AM EDT [facility] CO2 20(L) 21 - 33 mmol/L 10/31/2024 8:09 AM EDT [facility] Anion Gap 10 3 - 16 mmol/L 10/31/2024 8:09 AM EDT [facility] BUN 54(H) 7 - 25 mg/dL 10/31/2024 8:09 AM EDT [facility] Creatinine 1.75(H) 0.60 - 1.30 mg/dL 10/31/2024 8:09 AM EDT [facility] Glucose 136(H) 70 - 100 mg/dL 10/31/2024 8:09 AM EDT [facility] Calcium 8.7 8.6 - 10.3 mg/dL 10/31/2024 8:09 AM EDT [facility] Phosphorus 4.1 2.1 - 4.7 mg/dL 10/31/2024 8:09 AM EDT [facility] Albumin 3.2(L) 3.5 - 5.7 g/dL 10/31/2024 8:09 AM EDT [facility] Osmolality, Calculated 309(H) 278 - 305 mOsm/kg 10/31/2024 8:09 AM EDT [facility] EGFR 50 10/31/2024 8:09 AM EDT [facility] Comment:As of [...] 10/31/2024 7:35 AM EDT us Beata Horner [facility] [employer] LAB BLOOD ORDERABLES Denisse valle Result [facility] [address] [facility] [place] [address], [facility] * Magnesium (10/31/2024 6:40 AM EDT) Magnesium 1.8 1.5 - 2.5 mg/dL 10/31/2024 8:09 AM EDT [facility] Plasma 10/31/2024 6:40 AM EDT 10/31/2024 7:35 AM EDT Beata Horner [facility] BLOOD ORDERABLES Denisse l Result Performing Organization Address [facility] Co de Phone Number [facility] [address] [facility]. [address] * (ABNORMAL) Hepatic Function Panel (10/31/2024 6:40 AM EDT) Total Bilirubin 2.7(H) 0.0 - 1.5 mg/dL 10/31/2024 8:09 AM EDT [facility] Bilirubin, Direct 1.57(H) 0.00 - 0.40 mg/dL 10/31/2024 8:09 AM EDT [facility] AST 26 13 - 39 U/L 10/31/2024 8:09 AM EDT [facility] ALT 68(H) 7 - 52 U/L 10/31/2024 8:09 AM EDT [facility] Alkaline Phosphatase 112 36 - 125 U/L 10/31/2024 8:09 AM EDT [facility] Total Protein 4.7(L) 6.4 - 8.9 g/dL 10/31/2024 8:09 AM EDT [facility] Albumin 3.2(L) 3.5 - 5.7 g/dL 10/31/2024 8:09 AM EDT [facility] Bilirubin, Indirect 1.13(H) 0.00 - 1.10 mg/dL 10/31/2024 8:09 AM EDT [facility] Plasma 10/31/2024 6:40 AM EDT 10/31/2024 7:35 AM EDT Beata Horner [facility] BLOOD ORDERABLES Denisse l Result Performing Organization Address City/[facility]/ZIP Co de Phone Number [facility] [address] [facility]. [address] * (ABNORMAL) CBC (10/31/2024 6:40 AM EDT) WBC 6.0 3.8 - 10.8 10E3/uL 10/31/2024 8:05 AM EDT [facility] RBC 3.14(L) 4.20 - 5.80 10E6/uL 10/31/2024 8:05 AM EDT [facility] Hemoglobin 9.6(L) 13.2 - 17.1 g/dL 10/31/2024 8:05 AM EDT [facility] Hematocrit 27.5(L) 38.5 - 50.0 % 10/31/2024 8:05 AM EDT [facility] MCV 87.6 80.0 - 100.0 fL 10/31/2024 8:05 AM EDT [facility] MCH 30.7 27.0 - 33.0 pg 10/31/2024 8:05 AM EDT [facility] MCHC 35.0 32.0 - 36.0 g/dL 10/31/2024 8:05 AM EDT [facility] RDW 17.9(H) 11.0 - 15.0 % 10/31/2024 8:05 AM EDT [facility] Platelets 44(L) 140 - 400 10E3/uL 10/31/2024 8:05 AM EDT [facility] Comment: CNV Specimen checked for clots. None detected. MPV 8.9 7.5 - 11.5 fL 10/31/2024 8:05 AM EDT [facility] Whole Blood 10/31/2024 6:40 AM EDT 10/31/2024 7:34 AM EDT Beata Horner RE[employer]IST LAB BLOOD ORDERABLES Denisse l Result [facility] [address] [place] [address], [facility] * (ABNORMAL) POC Glucose Monitoring Device (10/30/2024 9:01 PM EDT) POC Glucose Monitoring Device 144(H) 70 - 100 mg/dL 10/30/2024 9:02 PM EDT [facility] Blood 10/30/2024 9:01 PM EDT 10/30/2024 9:01 PM EDT Harvey Domínguez III, MD POINT OF CARE TEST ORDERABLES Final Result Performing Organization Address [facility] Co de Phone Number [facility] [address] [facility]. [address] * (ABNORMAL) POC Glucose Monitoring Device (10/30/2024 5:37 PM EDT) POC Glucose Monitoring Device 124(H) 70 - 100 mg/dL 10/30/2024 5:47 PM EDT [facility] Blood 10/30/2024 5:37 PM EDT 10/30/2024 5:47 PM EDT Harvey Domínguez III, MD POINT OF CARE TEST ORDERABLES Final Result Performing Organization Address [facility] Co de Phone Number [facility] [address] [facility]. [address] * (ABNORMAL) POC Glucose Monitoring Device (10/30/2024 7:26 AM EDT) POC Glucose Monitoring Device 150(H) 70 - 100 mg/dL 10/30/2024 7:27 AM EDT [facility] Blood 10/30/2024 7:26 AM EDT 10/30/2024 7:27 AM EDT Harvey Domínguez III, MD POINT OF CARE TEST ORDERABLES Final Result Performing Organization Address [facility] Co de Phone Number [facility] [address] [facility]. [address] * Tacrolimus level (10/30/2024 7:13 AM EDT) Tacrolimus (LC-MS) 9.5 3.0 - 15.0 ng/mL 10/30/2024 2:53 PM EDT [facility] Comment:Performed via liquid chromatography tandem [...] 7:13 AM EDT 10/30/2024 7:26 AM EDT [facility] BLOOD ORDERABLES Final Re sult Performing Organization Address City/[facility] Co de Phone Number [facility] [address] * ECG 12-lead (MUSE) (10/30/2024 6:51 AM EDT) 10/30/2024 6:51 AM EDT Narrative MUSE - 11/01/2024 9:21 AM EDT Ventricular Rate: 92 BPM Atrial Rate: 92 BPM P-R Interval: 174 ms QRS Duration: 96 ms QT: 376 ms QTc: 464 ms P [place]: 54 degrees R [place]: -24 degrees T [place]: 11 degrees Diagnosis Line: NORMAL SINUS RHYTHM ^ NORMAL ECG ^ ^ Confirmed by MD JOE, KIMBERLYIIA ([id number]) on 11/01/2024 9:21:09 AM [facility] ORDERABLES Final Result Performing Organization Address City/[facility]/ZIP Co de Phone Number MUSE * (ABNORMAL) Renal Function Panel w/EGFR (10/30/2024 5:41 AM EDT) Sodium 140 133 - 146 mmol/L 10/30/2024 6:18 AM EDT [facility] Potassium 3.8 3.5 - 5.3 mmol/L 10/30/2024 6:18 AM EDT [facility] Chloride 111(H) 98 - 110 mmol/L 10/30/2024 6:18 AM EDT [facility] CO2 17(L) 21 - 33 mmol/L 10/30/2024 6:18 AM EDT [facility] Anion Gap 12 3 - 16 mmol/L 10/30/2024 6:18 AM EDT [facility] BUN 62(H) 7 - 25 mg/dL 10/30/2024 6:18 AM EDT [facility] Creatinine 1.96(H) 0.60 - 1.30 mg/dL 10/30/2024 6:18 AM EDT [facility] Glucose 116(H) 70 - 100 mg/dL 10/30/2024 6:18 AM EDT [facility] Calcium 9.0 8.6 - 10.3 mg/dL 10/30/2024 6:18 AM EDT [facility] Phosphorus 4.6 2.1 - 4.7 mg/dL 10/30/2024 6:18 AM EDT [facility] Albumin 3.2(L) 3.5 - 5.7 g/dL 10/30/2024 6:18 AM EDT [facility] Osmolality, Calculated 309(H) 278 - 305 mOsm/kg 10/30/2024 6:18 AM EDT [facility] EGFR 43 10/30/2024 6:18 AM EDT [facility] Comment:As of [...] 10/30/2024 5:47 AM EDT us Beata Horner REVENUE SPECIALIST LAB BLOOD ORDERABLES Denisse l Result [facility] [address] * Magnesium (10/30/2024 5:41 AM EDT) Magnesium 2.2 1.5 - 2.5 mg/dL 10/30/2024 6:18 AM EDT [facility] Plasma 10/30/2024 5:41 AM EDT 10/30/2024 5:47 AM EDT Beata Horner [facility] BLOOD ORDERABLES Denisse l Result [facility] [address] [facility]. [address] * (ABNORMAL) Hepatic Function Panel (10/30/2024 5:41 AM EDT) Total Bilirubin 3.6(H) 0.0 - 1.5 mg/dL 10/30/2024 6:18 AM EDT [facility] Bilirubin, Direct 1.95(H) 0.00 - 0.40 mg/dL 10/30/2024 6:18 AM EDT [facility] AST 33 13 - 39 U/L 10/30/2024 6:18 AM EDT [facility] ALT 71(H) 7 - 52 U/L 10/30/2024 6:18 AM EDT [facility] Alkaline Phosphatase 80 36 - 125 U/L 10/30/2024 6:18 AM EDT [facility] Total Protein 4.8(L) 6.4 - 8.9 g/dL 10/30/2024 6:18 AM EDT [facility] Albumin 3.2(L) 3.5 - 5.7 g/dL 10/30/2024 6:18 AM EDT [facility] Bilirubin, Indirect 1.65(H) 0.00 - 1.10 mg/dL 10/30/2024 6:18 AM EDT [facility] Plasma 10/30/2024 5:41 AM EDT 10/30/2024 5:47 AM EDT [facility] Dada Horner [facility] BLOOD ORDERABLES Denisse l Result [facility] [address] [facility]. [address] * (ABNORMAL) CBC (10/30/2024 5:41 AM EDT) WBC 8.1 3.8 - 10.8 10E3/uL 10/30/2024 8:06 AM EDT [facility] RBC 3.29(L) 4.20 - 5.80 10E6/uL 10/30/2024 8:06 AM EDT [facility] Hemoglobin 10.1(L) 13.2 - 17.1 g/dL 10/30/2024 8:06 AM EDT [facility] Hematocrit 28.8(L) 38.5 - 50.0 % 10/30/2024 8:06 AM EDT [facility] MCV 87.6 80.0 - 100.0 fL 10/30/2024 8:06 AM EDT [facility] MCH 30.6 27.0 - 33.0 pg 10/30/2024 8:06 AM EDT [facility] MCHC 34.9 32.0 - 36.0 g/dL 10/30/2024 8:06 AM EDT [facility] RDW 18.1(H) 11.0 - 15.0 % 10/30/2024 8:06 AM EDT [facility] Platelets 44(L) 140 - 400 10E3/uL 10/30/2024 8:06 AM EDT [facility] Comment: CNV Specimen checked for clots. None detected. MPV 8.3 7.5 - 11.5 fL 10/30/2024 8:06 AM EDT [facility] Whole Blood 10/30/2024 5:41 AM EDT 10/30/2024 5:50 AM EDT [facility] Dada Horner [facility] BLOOD ORDERABLES Denisse l Result [facility] [address] [facility]. [address] * (ABNORMAL) POC Glucose Monitoring Device (10/29/2024 10:18 PM EDT) POC Glucose Monitoring Device 140(H) 70 - 100 mg/dL 10/29/2024 10:18 PM EDT [facility] Blood 10/29/2024 10:1 8 PM EDT 10/29/2024 10:18 PM EDT us Harvey Domínguez III, MD POINT OF CARE TEST ORDERABLES Final Result [facility] [address] [facility]. [address] * (ABNORMAL) POC Glucose Monitoring Device (10/29/2024 6:42 PM EDT) POC Glucose Monitoring Device 152(H) 70 - 100 mg/dL 10/29/2024 6:43 PM EDT [facility] Blood 10/29/2024 6:42 PM EDT 10/29/2024 6:43 PM EDT us Harvey Domíngeuz III, MD POINT OF CARE TEST ORDERABLES Final Result Performing Organization Address [facility] Co de Phone Number [facility] [address] [place] [address]. [address] * (ABNORMAL) POC Glucose Monitoring Device (10/29/2024 11:35 AM EDT) POC Glucose Monitoring Device 130(H) 70 - 100 mg/dL 10/29/2024 11:36 AM EDT [facility] Blood 10/29/2024 11:3 5 AM EDT 10/29/2024 11:36 AM EDT us Harvey Domínguez III, MD POINT OF CARE TEST ORDERABLES Final Result Performing Organization Address City/[facility] Co de Phone Number [facility] [address] [facility]. [address] * ECG 12 lead (MUSE) (10/29/2024 9:34 AM EDT) 10/29/2024 9:34 AM EDT Narrative MUSE - 10/29/2024 10:34 PM EDT Ventricular Rate: 97 BPM Atrial Rate: 97 BPM P-R Interval: 186 ms QRS Duration: 104 ms QT: 382 ms QTc: 485 ms P [place]: 54 degrees R [place]: -21 degrees T [place]: 1 degrees Diagnosis Line: NORMAL SINUS RHYTHM ^ NORMAL ECG ^ Confirmed by JORGE MACIAS ([id number]) on 10/29/2024 10:34:50 PM Afshan Bear MD ECG ORDERABLES Final Result MUSE * Tacrolimus level (10/29/2024 8:08 AM EDT) Pathologist [facility] Tacrolimus (LC-MS) 10.4 3.0 - 15.0 ng/mL 10/29/2024 2:07 PM EDT [facility] Comment:Performed via liquid chromatography tandem [...] EDT 10/29/2024 8:21 AM EDT Priti Geiger [facility] BLOOD ORDERABLES Final Re sult [facility] [address] * Prepare RBC, leukoreduced, 1 Units (10/29/2024 6:16 AM EDT) Product Code M7031V05 [facility] Unit Number [id number] [facility] Dispense Status Presumed Transfused_PT [facility] Blood Expiration Date [id number] [facility] Coding System [id number] [facility] Blood Bank Product Shay Plata MD BLOOD BANK PRODUCT O RDERABLES Final Result Performing Organization Address [facility] Co de Phone Number [facility] * Prepare RBC, leukoreduced, 1 Units (10/29/2024 6:15 AM EDT) Product Code G3928Z74 [facility] Unit Number [id number] [facility] Dispense Status Presumed Transfused_PT [facility] Blood Expiration Date [id number] HC[facility] Coding System [id number] [facility] Blood Bank Product Carlos Marks MD BLOOD BANK PRODUCT ORDERABL ES Final Result Performing Organization Address [facility] de Phone Number [facility] * Prepare RBC, leukoreduced, 1 Units (10/29/2024 6:15 AM EDT) Product Code X6623P71 [facility] Unit Number [id number] [facility] Dispense Status Presumed Transfused_PT [facility] Blood Expiration Date [id number] HC[facility] Coding System [id number] [facility] Blood Bank Product John Moreno MD BLOOD BANK PRODUCT ORDERABLE S Final Result Performing Organization Address [facility] de Phone Number [facility] * (ABNORMAL) Renal Function Panel w/EGFR (10/29/2024 5:07 AM EDT) Sodium 144 133 - 146 mmol/L 10/29/2024 5:49 AM EDT [facility] Potassium 3.8 3.5 - 5.3 mmol/L 10/29/2024 5:49 AM EDT [facility] Chloride 113(H) 98 - 110 mmol/L 10/29/2024 5:49 AM EDT [facility] CO2 17(L) 21 - 33 mmol/L 10/29/2024 5:49 AM EDT [facility] Anion Gap 14 3 - 16 mmol/L 10/29/2024 5:49 AM EDT [facility] BUN 57(H) 7 - 25 mg/dL 10/29/2024 5:49 AM EDT [facility] Creatinine 1.93(H) 0.60 - 1.30 mg/dL 10/29/2024 5:49 AM EDT [facility] Glucose 110(H) 70 - 100 mg/dL 10/29/2024 5:49 AM EDT [facility] Calcium 9.3 8.6 - 10.3 mg/dL 10/29/2024 5:49 AM EDT [facility] Phosphorus 4.8(H) 2.1 - 4.7 mg/dL 10/29/2024 5:49 AM EDT [facility] Albumin 3.5 3.5 - 5.7 g/dL 10/29/2024 5:49 AM EDT [facility] Osmolality, Calculated 314(H) 278 - 305 mOsm/kg 10/29/2024 5:49 AM EDT [facility] EGFR 44 10/29/2024 5:49 AM EDT [facility] Comment:As of [...] 10/29/2024 5:13 AM EDT us Beata Horner [facility] BLOOD ORDERABLES Denisse l Result [facility] [address] * Magnesium (10/29/2024 5:07 AM EDT) Magnesium 2.1 1.5 - 2.5 mg/dL 10/29/2024 5:49 AM EDT [facility] Plasma 10/29/2024 5:07 AM EDT 10/29/2024 5:13 AM EDT Beata Horner REVENUE SPECIALIST LAB BLOOD ORDERABLES Denisse l Result [facility] [address] * (ABNORMAL) Hepatic Function Panel (10/29/2024 5:07 AM EDT) Total Bilirubin 4.2(H) 0.0 - 1.5 mg/dL 10/29/2024 5:49 AM EDT [facility] Bilirubin, Direct 2.85(H) 0.00 - 0.40 mg/dL 10/29/2024 5:49 AM EDT [facility] AST 31 13 - 39 U/L 10/29/2024 5:49 AM EDT [facility] ALT 88(H) 7 - 52 U/L 10/29/2024 5:49 AM EDT [facility] Alkaline Phosphatase 51 36 - 125 U/L 10/29/2024 5:49 AM EDT [facility] Total Protein 5.2(L) 6.4 - 8.9 g/dL 10/29/2024 5:49 AM EDT [facility] Albumin 3.5 3.5 - 5.7 g/dL 10/29/2024 5:49 AM EDT [facility] Bilirubin, Indirect 1.35(H) 0.00 - 1.10 mg/dL 10/29/2024 5:49 AM EDT [facility] Plasma 10/29/2024 5:07 AM EDT 10/29/2024 5:13 AM EDT us Beata Horner REVENUE SPECIALIST LAB BLOOD ORDERABLES Denisse l Result [facility] [address] * (ABNORMAL) CBC (10/29/2024 5:07 AM EDT) [facility] Signature WBC 7.8 3.8 - 10.8 10E3/uL 10/29/2024 5:38 AM EDT [facility] RBC 3.05(L) 4.20 - 5.80 10E6/uL 10/29/2024 5:38 AM EDT [facility] Hemoglobin 9.0(L) 13.2 - 17.1 g/dL 10/29/2024 5:38 AM EDT [facility] Hematocrit 26.7(L) 38.5 - 50.0 % 10/29/2024 5:38 AM EDT [facility] MCV 87.4 80.0 - 100.0 fL 10/29/2024 5:38 AM EDT [facility] MCH 29.7 27.0 - 33.0 pg 10/29/2024 5:38 AM EDT [facility] MCHC 33.9 32.0 - 36.0 g/dL 10/29/2024 5:38 AM EDT [facility] RDW 18.3(H) 11.0 - 15.0 % 10/29/2024 5:38 AM EDT [facility] Platelets 41(L) 140 - 400 10E3/uL 10/29/2024 5:38 AM EDT [facility] Comment: CNV Specimen checked for clots. None detected. MPV 7.5 7.5 - 11.5 fL 10/29/2024 5:38 AM EDT [facility] Whole Blood 10/29/2024 5:07 AM EDT 10/29/2024 5:13 AM EDT [facility] LAB BLOOD ORDERABLES Denisse l Result [facility] [address] * (ABNORMAL) TEG-Bypass/ECMO/Liver HN (Factor function, Platelet/Fibrin Clot Strength w/Clot Breakdown, Heparinase In All Channels) (10/29/2024 5:07 AM EDT) Citrated Kaolin Reaction Time (TEGECMOLIVER) 8.9 4.6 - 9.1 minutes 10/29/2024 7:04 AM EDT [facility] Citrated Kaolin W/Heparinase Reaction Time (TEGECMOLIVER) 7.4 4.3 - 8.3 minutes 10/29/2024 7:04 AM EDT [facility] Citrated Kaolin Maximum Amplitude (TEGECMOLIVER) 52.9 52.0 - 69.0 mm 10/29/2024 7:04 AM EDT [facility] Citrated Functional Fibrinogen W/Heparinase Maximum Amplitude(TEGEC MOLIVER) 20.7 15.0 - 34.0 mm 10/29/2024 7:04 AM EDT [facility] Citrated Rapid Teg W/Heparinase Maximum Amplitude (TEGECMOLIVER) 49.7(L) 53.0 - 69.0 mm 10/29/2024 7:04 AM EDT [facility] Citrated Kaolin w/Heparinase Percent Lysis (TEGECMOLIVER) 0.0 0.0 - 3.2 % 10/29/2024 7:04 AM EDT [facility] Whole Blood (Citrate) 10/29/2024 5:07 AM EDT 10/29/2024 5:10 AM EDT Kemar Sahni MD LAB BLOOD ORDERABLES Final Result [facility] [address] * (ABNORMAL) TEG-Bypass/ECMO/Liver HN (Factor function, Platelet/Fibrin Clot Strength w/Clot Breakdown, Heparinase In All Channels) (10/28/2024 11:55 PM EDT) Citrated Kaolin Reaction Time (TEGECMOLIVER) 8.6 4.6 - 9.1 minutes 10/29/2024 2:01 AM EDT [facility] Citrated Kaolin W/Heparinase Reaction Time (TEGECMOLIVER) 8.7(H) 4.3 - 8.3 minutes 10/29/2024 2:01 AM EDT [facility] Citrated Kaolin Maximum Amplitude (TEGECMOLIVER) 47.9(L) 52.0 - 69.0 mm 10/29/2024 2:01 AM EDT [facility] Citrated Functional Fibrinogen W/Heparinase Maximum Amplitude(TEGEC MOLIVER) 22.0 15.0 - 34.0 mm 10/29/2024 2:01 AM EDT [facility] Citrated Rapid Teg W/Heparinase Maximum Amplitude (TEGECMOLIVER) 45.9(L) 53.0 - 69.0 mm 10/29/2024 2:01 AM EDT [facility] Citrated Kaolin w/Heparinase Percent Lysis (TEGECMOLIVER) 0.0 0.0 - 3.2 % 10/29/2024 2:01 AM EDT [facility] Whole Blood (Citrate) 10/28/2024 11:55 PM EDT 10/28/2024 11:58 PM EDT us Kemar Sahni MD LAB BLOOD ORDERABLES Final Result [facility] [address] [address] * (ABNORMAL) CBC, STAT (10/28/2024 8:04 PM EDT) WBC 3.9 3.8 - 10.8 10E3/uL 10/28/2024 8:36 PM EDT [facility] RBC 2.66(L) 4.20 - 5.80 10E6/uL 10/28/2024 8:36 PM EDT [facility] Hemoglobin 8.0(L) 13.2 - 17.1 g/dL 10/28/2024 8:36 PM EDT [facility] Hematocrit 23.0(L) 38.5 - 50.0 % 10/28/2024 8:36 PM EDT [facility] MCV 86.4 80.0 - 100.0 fL 10/28/2024 8:36 PM EDT [facility] MCH 29.9 27.0 - 33.0 pg 10/28/2024 8:36 PM EDT [facility] MCHC 34.6 32.0 - 36.0 g/dL 10/28/2024 8:36 PM EDT [facility] RDW 18.6(H) 11.0 - 15.0 % 10/28/2024 8:36 PM EDT [facility] Platelets 29(L) 140 - 400 10E3/uL 10/28/2024 8:36 PM EDT [facility] Comment: CNV Specimen checked for clots. None detected. MPV 7.8 7.5 - 11.5 fL 10/28/2024 8:36 PM EDT [facility] Whole Blood 10/28/2024 8:04 PM EDT 10/28/2024 8:14 PM EDT Carlos Marks MD LAB BLOOD ORDERABLES Final Result Performing Organization Address City/[facility]/ZIP Co de Phone Number [facility] [address] * (ABNORMAL) POC Glucose Monitoring Device (10/28/2024 8:03 PM EDT) [facility] POC Glucose Monitoring Device 122(H) 70 - 100 mg/dL 10/28/2024 8:04 PM EDT [facility] Blood 10/28/2024 8:03 PM EDT 10/28/2024 8:04 PM EDT Harvey Domínguez III, MD POINT OF CARE TEST ORDERABLES Final Result [facility] [address] * (ABNORMAL) TEG-Bypass/ECMO/Liver HN (Factor function, Platelet/Fibrin Clot Strength w/Clot Breakdown, Heparinase In All Channels) (10/28/2024 6:39 PM EDT) Pathologist [facility] Citrated Kaolin Reaction Time (TEGECMOLIVER) 9.0 4.6 - 9.1 minutes 10/28/2024 7:50 PM EDT [facility] Citrated Kaolin W/Heparinase Reaction Time (TEGECMOLIVER) 8.3 4.3 - 8.3 minutes 10/28/2024 7:50 PM EDT [facility] Citrated Kaolin Maximum Amplitude (TEGECMOLIVER) 47.6(L) 52.0 - 69.0 mm 10/28/2024 7:50 PM EDT [facility] Citrated Functional Fibrinogen W/Heparinase Maximum Amplitude(TEGEC MOLIVER) 20.4 15.0 - 34.0 mm 10/28/2024 7:50 PM EDT [facility] Citrated Rapid Teg W/Heparinase Maximum Amplitude (TEGECMOLIVER) 44.0(L) 53.0 - 69.0 mm 10/28/2024 7:50 PM EDT [facility] Citrated Kaolin w/Heparinase Percent Lysis (TEGECMOLIVER) 0.0 0.0 - 3.2 % 10/28/2024 7:50 PM EDT [facility] Whole Blood (Citrate) 10/28/2024 6:39 PM EDT 10/28/2024 6:42 PM EDT Kemar Sahni MD LAB BLOOD ORDERABLES Final Result [facility] [address] * (ABNORMAL) POC Glucose Monitoring Device (10/28/2024 5:31 PM EDT) [facility] POC Glucose Monitoring Device 130(H) 70 - 100 mg/dL 10/28/2024 5:31 PM EDT [facility] Blood 10/28/2024 5:31 PM EDT 10/28/2024 5:31 PM EDT Harvey Domínguez III, MD POINT OF CARE TEST ORDERABLES Final Result [facility] [address] * Transfuse RBC Transfusion Rate: Per dept routine (10/28/2024 5:23 PM EDT) us Shay Plata MD NURSING TREATMENT OR DERABLES - BLOOD ADMIN Final Result Performing Organization Address [facility] de Phone Number EXTERNAL * Transfuse RBC Transfusion Rate: Per dept routine, 1 Units (10/28/2024 5:23 PM EDT) Shay Plata MD NURSING TREATMENT OR DERABLES - BLOOD ADMIN Final Result Performing Organization Address [facility] Co de Phone Number EXTERNAL * US [...] EXAM: US ABDOMEN LIMITED EXAM: US DUPLEX [id number] COMPLETE INDICATION: Post-op liver transplant DATE: 10/28/2024 [...] retrohepatic inferior vena cava is patent. The [place] right kidney is partially visualized. A prominent [...] EXAM: US ABDOMEN LIMITED EXAM: US DUPLEX [id number] COMPLETE INDICATION: Post-op liver transplant DATE: 10/28/2024 [...] retrohepatic inferior vena cava is patent. The [place] right kidney is partially visualized. A prominent [...] ORDERABLES Fi nal Result * US Duplex [id number] Comp (10/28/2024 4:23 PM EDT) Anatomical Region [...] EXAM: US ABDOMEN LIMITED EXAM: US DUPLEX [id number] COMPLETE INDICATION: Post-op liver transplant DATE: 10/28/2024 [...] retrohepatic inferior vena cava is patent. The [place] right kidney is partially visualized. A prominent [...] EXAM: US ABDOMEN LIMITED EXAM: US DUPLEX [id number] COMPLETE INDICATION: Post-op liver transplant DATE: 10/28/2024 [...] retrohepatic inferior vena cava is patent. The [place] right kidney is partially visualized. A prominent [...] Wasserman MD at 10/28/2024 4:42 PM EDT [facility] Vi Plata MD [facility] [place] US ORDERABLES Fi nal Result * (ABNORMAL) CBC, STAT (10/28/2024 2:49 PM EDT) WBC 4.0 3.8 - 10.8 10E3/uL 10/28/2024 3:07 PM EDT [facility] RBC 2.44(L) 4.20 - 5.80 10E6/uL 10/28/2024 3:07 PM EDT [facility] Hemoglobin 7.5(L) 13.2 - 17.1 g/dL 10/28/2024 3:07 PM EDT [facility] Hematocrit 21.4(L) 38.5 - 50.0 % 10/28/2024 3:07 PM EDT [facility] MCV 87.6 80.0 - 100.0 fL 10/28/2024 3:07 PM EDT [facility] MCH 30.6 27.0 - 33.0 pg 10/28/2024 3:07 PM EDT [facility] MCHC 34.9 32.0 - 36.0 g/dL 10/28/2024 3:07 PM EDT [facility] RDW 18.4(H) 11.0 - 15.0 % 10/28/2024 3:07 PM EDT [facility] Platelets 30(L) 140 - 400 10E3/uL 10/28/2024 3:07 PM EDT [facility] Comment: CNV Specimen checked for clots. None detected. MPV 7.7 7.5 - 11.5 fL 10/28/2024 3:07 PM EDT [facility] Whole Blood 10/28/2024 2:49 PM EDT 10/28/2024 2:53 PM EDT Carlos Marks MD LAB BLOOD ORDERABLES Final Result Performing Organization Address City/[facility] Co de Phone Number [facility] [address] * ECG 12 lead (MUSE) (10/28/2024 1:22 PM EDT) 10/28/2024 1:22 PM EDT Narrative MUSE - 10/29/2024 10:34 PM EDT Ventricular Rate: 104 BPM Atrial Rate: 104 BPM P-R Interval: 172 ms QRS Duration: 90 ms QT: 354 ms QTc: 465 ms P [place]: 58 degrees R [place]: -19 degrees T [place]: 38 degrees Diagnosis Line: SINUS TACHYCARDIA ^ OTHERWISE NORMAL ECG ^ ^ Confirmed by JORGE MACIAS ([id number]) on 10/29/2024 10:34:22 PM us Hillary Fernandes PharmD ECG ORDERABLES Final Res ult MUSE * (ABNORMAL) POC Glucose Monitoring Device (10/28/2024 12:54 PM EDT) [facility] POC Glucose Monitoring Device 119(H) 70 - 100 mg/dL 10/28/2024 12:55 PM EDT [facility] Blood 10/28/2024 12:5 4 PM EDT 10/28/2024 12:55 PM EDT Harvey Domínguez III, MD POINT OF CARE TEST ORDERABLES Final Result Performing Organization Address [facility] Co de Phone Number [facility] [address] [facility]. [address] * Transfuse RBC Transfusion Rate: Per dept routine (10/28/2024 12:31 PM EDT) Carlos Marks MD NURSING TREATMENT ORDERABLE S - BLOOD ADMIN Final Result Performing Organization Address City/[facility] Co de Phone Number EXTERNAL * Transfuse RBC Transfusion Rate: Per dept routine, 1 Units (10/28/2024 12:31 PM EDT) Carlos Marks MD NURSING TREATMENT ORDERABLE S - BLOOD ADMIN Final Result Performing Organization Address [facility] de Phone Number EXTERNAL * Protime-INR, STAT (10/28/2024 11:09 AM EDT) Protime 14.3 12.1 - 15.1 seconds 10/28/2024 11:29 AM EDT [facility] INR 1.1 0.9 - 1.1 10/28/2024 11:29 AM EDT [facility] Comment: RECOMMENDED THERAPEUTIC RANGES USING INR : Stable oral anticoagulant therapy: 2.0 - 3.0 Mechanical prosthetic heart valve: 2.5 - 3.5 Recurrent acute myocardial infarction: 2.5 - 3.5 Plasma 10/28/2024 11:0 9 AM EDT 10/28/2024 11:16 AM EDT Carlos Marks MD LAB BLOOD ORDERABLES Final Result Performing Organization Address [facility] Co de Phone Number [facility] [address] [facility]. [address] * (ABNORMAL) Lactic Acid, STAT (10/28/2024 11:09 AM EDT) Lactate 0.3(L) 0.5 - 2.2 mmol/L 10/28/2024 11:37 AM EDT [facility] Plasma 10/28/2024 11:0 9 AM EDT 10/28/2024 11:15 AM EDT us Carlos Marks MD LAB BLOOD ORDERABLES Final Result [facility] [address] * Magnesium, STAT (10/28/2024 11:09 AM EDT) Magnesium 2.1 1.5 - 2.5 mg/dL 10/28/2024 11:47 AM EDT [facility] Plasma 10/28/2024 11:0 9 AM EDT 10/28/2024 11:16 AM EDT us Carlos Marks MD LAB BLOOD ORDERABLES Final Result Performing Organization Address [facility] Co de Phone Number [facility] [address] * (ABNORMAL) Renal Function Panel w/EGFR, STAT (10/28/2024 11:09 AM EDT) Sodium 144 133 - 146 mmol/L 10/28/2024 11:47 AM EDT [facility] Potassium 3.4(L) 3.5 - 5.3 mmol/L 10/28/2024 11:47 AM EDT [facility] Chloride 112(H) 98 - 110 mmol/L 10/28/2024 11:47 AM EDT [facility] CO2 22 21 - 33 mmol/L 10/28/2024 11:47 AM EDT [facility] Anion Gap 10 3 - 16 mmol/L 10/28/2024 11:47 AM EDT [facility] BUN 57(H) 7 - 25 mg/dL 10/28/2024 11:47 AM EDT [facility] Creatinine 2.01(H) 0.60 - 1.30 mg/dL 10/28/2024 11:47 AM EDT [facility] Glucose 108(H) 70 - 100 mg/dL 10/28/2024 11:47 AM EDT [facility] Calcium 8.8 8.6 - 10.3 mg/dL 10/28/2024 11:47 AM EDT [facility] Phosphorus 4.0 2.1 - 4.7 mg/dL 10/28/2024 11:47 AM EDT [facility] Albumin 3.3(L) 3.5 - 5.7 g/dL 10/28/2024 11:47 AM EDT [facility] Osmolality, Calculated 314(H) 278 - 305 mOsm/kg 10/28/2024 11:47 AM EDT [facility] EGFR 42 10/28/2024 11:47 AM EDT [facility] Comment:As of [...] Marks MD LAB BLOOD ORDERABLES Final Result [facility] [address] [place] [address], [facility] * (ABNORMAL) TEG-Bypass/ECMO/Liver HN (Factor function, Platelet/Fibrin Clot Strength w/Clot Breakdown, Heparinase In All Channels) (10/28/2024 11:09 AM EDT) Citrated Kaolin Reaction Time (TEGECMOLIVER) 9.2(H) 4.6 - 9.1 minutes 10/28/2024 12:30 PM EDT [facility] Citrated Kaolin W/Heparinase Reaction Time (TEGECMOLIVER) 9.6(H) 4.3 - 8.3 minutes 10/28/2024 12:30 PM EDT [facility] Citrated Kaolin Maximum Amplitude (TEGECMOLIVER) 51.2(L) 52.0 - 69.0 mm 10/28/2024 12:30 PM EDT [facility] Citrated Functional Fibrinogen W/Heparinase Maximum Amplitude(TEGEC MOLIVER) 21.6 15.0 - 34.0 mm 10/28/2024 12:30 PM EDT [facility] Citrated Rapid Teg W/Heparinase Maximum Amplitude (TEGECMOLIVER) 49.3(L) 53.0 - 69.0 mm 10/28/2024 12:30 PM EDT [facility] Citrated Kaolin w/Heparinase Percent Lysis (TEGECMOLIVER) 0.0 0.0 - 3.2 % 10/28/2024 12:30 PM EDT [facility] Whole Blood (Citrate) 10/28/2024 11:09 AM EDT 10/28/2024 11:14 AM EDT us Kemar Sahni MD LAB BLOOD ORDERABLES Final Result [facility] [address] * (ABNORMAL) CBC (10/28/2024 10:21 AM EDT) WBC 4.1 3.8 - 10.8 10E3/uL 10/28/2024 10:41 AM EDT [facility] RBC 2.30(L) 4.20 - 5.80 10E6/uL 10/28/2024 10:41 AM EDT [facility] Hemoglobin 7.1(L) 13.2 - 17.1 g/dL 10/28/2024 10:41 AM EDT [facility] Hematocrit 20.4(L) 38.5 - 50.0 % 10/28/2024 10:41 AM EDT [facility] MCV 88.5 80.0 - 100.0 fL 10/28/2024 10:41 AM EDT [facility] MCH 30.7 27.0 - 33.0 pg 10/28/2024 10:41 AM EDT [facility] MCHC 34.7 32.0 - 36.0 g/dL 10/28/2024 10:41 AM EDT [facility] RDW 18.7(H) 11.0 - 15.0 % 10/28/2024 10:41 AM EDT [facility] Platelets 37(L) 140 - 400 10E3/uL 10/28/2024 10:41 AM EDT [facility] Comment: CNV Specimen checked for clots. None detected. MPV 7.6 7.5 - 11.5 fL 10/28/2024 10:41 AM EDT [facility] Whole Blood 10/28/2024 10:2 1 AM EDT 10/28/2024 10:29 AM EDT Carlos Marks MD LAB BLOOD ORDERABLES Final Result [facility] [address] * POC Glucose Monitoring Device (10/28/2024 9:07 AM EDT) [facility] POC Glucose Monitoring Device 97 70 - 100 mg/dL 10/28/2024 9:08 AM EDT [facility] Blood 10/28/2024 9:07 AM EDT 10/28/2024 9:08 AM EDT Harvey Domínguez III, MD POINT OF CARE TEST ORDERABLES Final Result [facility] [address] * (ABNORMAL) Tacrolimus level (10/28/2024 8:20 AM EDT) Tacrolimus (LC-MS) <1.0(L) 3.0 - 15.0 ng/mL 10/28/2024 2:02 PM EDT [facility] Comment:Performed via liquid chromatography tandem mass spectrometry. Detection limit: 1 ng/mL. Individual target concentrations may vary due to target organ and time after transplant. This test has been developed and its performance characteristics determined by [facility] which is certified under the Clinical Laboratory [...] EDT 10/28/2024 8:29 AM EDT Priti Geiger [facility] BLOOD ORDERABLES Final Re sult Performing Organization Address [facility] Co de Phone Number [facility] [address] * (ABNORMAL) POC Glucose Monitoring Device (10/28/2024 8:10 AM EDT) POC Glucose Monitoring Device 102(H) 70 - 100 mg/dL 10/28/2024 8:11 AM EDT [facility] Blood 10/28/2024 8:10 AM EDT 10/28/2024 8:11 AM EDT Harvey Domínguez III, MD POINT OF CARE TEST ORDERABLES Final Result Performing Organization Address [facility] de Phone Number [facility] [address] [facility]. [address] * POC Glucose Monitoring Device (10/28/2024 6:17 AM EDT) POC Glucose Monitoring Device 100 70 - 100 mg/dL 10/28/2024 6:18 AM EDT [facility] Blood 10/28/2024 6:17 AM EDT 10/28/2024 6:18 AM EDT us Harvey Domínguez III, MD POINT OF CARE TEST ORDERABLES Final Result Performing Organization Address [facility] Co de Phone Number [facility] [address] [place] [address], [facility] * Prepare Platelets, leukoreduced (10/28/2024 6:15 AM EDT) Product Code I4885R82 HCLL Unit Number [id number] HCLL Dispense Status Presumed Transfused_PT HCLL Blood Expiration Date HCLL Coding System [id number] HCLL Product Code U0064H82 HCLL Unit Number [id number] HCLL Dispense Status Presumed Transfused_PT HCLL Blood Expiration Date HCLL Coding System [id number] HCLL Attending Provider Unknown BLOOD BANK PRODUCT OR DERABLES Final Result Performing Organization Address City/[facility]/ZIP Co de Phone Number HCLL * Prepare Fresh Frozen Plasma (10/28/2024 6:15 AM EDT) Product Code Q8174Q58 HCLL Unit Number [id number] HCLL Dispense Status Released from Crossmatch_RE HCLL Blood Expiration Date HCLL Coding System [id number] HCLL Product Code X3365S79 HCLL Unit Number [id number] HCLL Dispense Status Presumed Transfused_PT HCLL Blood Expiration Date HCLL Coding System NEQR425 HCLL Product Code J0222T94 HCLL Unit Number [id number] HCLL Dispense Status Released from Crossmatch_RE HCLL Blood Expiration Date HCLL Coding System SXAL098 HCLL Product Code O8469K71 HCLL Unit Number [id number] HCLL Dispense Status Presumed Transfused_PT HCLL Blood Expiration Date HCLL Coding System HYEO063 HCLL Product Code Z0575H01 HCLL Unit Number [id number] HCLL Dispense Status Released from Crossmatch_RE HCLL Blood Expiration Date HCLL Coding System PXJP285 HCLL us Attending Provider Unknown BLOOD BANK PRODUCT OR DERABLES Final Result Performing Organization Address City/[facility] de Phone Number HCLL * Prepare RBC, leukoreduced (10/28/2024 6:15 AM EDT) Product Code J2905G66 HCLL Unit Number [id number] HCLL Dispense Status Released from Crossmatch_RE HCLL Blood Expiration Date [id number] HCLL Coding System YQRG262 HCLL Product Code T6846J95 HCLL Unit Number [id number] HCLL Dispense Status Presumed Transfused_PT HCLL Blood Expiration Date [id number] HCLL Coding System IYCE993 HCLL Product Code J2355E37 HCLL Unit Number [id number] HCLL Dispense Status Released from Crossmatch_RE HCLL Blood Expiration Date [id number] HCLL Coding System TFBO815 HCLL Product Code X7468R93 HCLL Unit Number [id number] HCLL Dispense Status Presumed Transfused_PT HCLL Blood Expiration Date 384770073919 HCLL Coding System LFPA859 HCLL Product Code P5747L87 HCLL Unit Number [id number] HCLL Dispense Status Released from Crossmatch_RE HCLL Blood Expiration Date [id number] HCLL Coding System UZWW663 HCLL us Attending Provider Unknown BLOOD BANK PRODUCT OR DERABLES Final Result Performing Organization Address City/[facility] Co de Phone Number HCLL * Prepare Platelets, leukoreduced, 1 Units (10/28/2024 6:15 AM EDT) Product Code P4056A11 HCLL Unit Number [id number] HCLL Dispense Status Presumed Transfused_PT HCLL Blood Expiration Date [id number] HCLL Coding System FXAG801 HCLL Blood Bank Product John Pina MD BLOOD BANK PRODUCT ORDERABLES F inal Result Performing Organization Address [facility] de Phone Number HCLL * Prepare Cryoprecipitate, 1 Units (10/28/2024 6:15 AM EDT) Product Code W2618N63 HCLL Unit Number [id number] HCLL Dispense Status Presumed Transfused_PT HCLL Blood Expiration Date HCLL Coding System XWDC825 HCLL Product Code Y0628U78 HCLL Unit Number [id number] HCLL Dispense Status Presumed Transfused_PT HCLL Blood Expiration Date HCLL Coding System NIXC498 HCLL Blood Bank Product John Pina MD BLOOD BANK PRODUCT ORDERABLES F inal Result Performing Organization Address [facility] de Phone Number HCLL * Prepare Fresh Frozen Plasma, 1 Units (10/28/2024 6:15 AM EDT) Product Code R4221Z12 HCLL Unit Number [id number] Dispense Status Presumed Transfused_PT HCLL Blood Expiration Date [id number] HCLL Coding System WZXQ681 HCLL Blood Bank Product John Pina MD BLOOD BANK PRODUCT ORDERABLES F inal Result Performing Organization Address [facility] de Phone Number HCLL * Prepare Cryoprecipitate, 1 Units (10/28/2024 6:15 AM EDT) Product Code T2960E02 HCLL Unit Number [id number] HCLL Dispense Status Presumed Transfused_PT HCLL Blood Expiration Date 681803397723 HCLL Coding System [id number] HCLL Product Code I6966M52 HCLL Unit Number [id number] HCLL Dispense Status Presumed Transfused_PT HCLL Blood Expiration Date 252158195524 HCLL Coding System JGUG053 HCLL Product Code D4830H87 HCLL Unit Number [id number] HCLL Dispense Status Presumed Transfused_PT HCLL Blood Expiration Date HCLL Coding System OAQH236 HCLL Product Code I0287U60 HCLL Unit Number [id number] HCLL Dispense Status Presumed Transfused_PT HCLL Blood Expiration Date 978585607430 HCLL Coding System IINJ123 HCLL Blood Bank Product John Pina MD BLOOD BANK PRODUCT ORDERABLES F inal Result HCLL * (ABNORMAL) POC Glucose Monitoring Device (10/28/2024 4:55 AM EDT) POC Glucose Monitoring Device 104(H) 70 - 100 mg/dL 10/28/2024 4:57 AM EDT [facility] Blood 10/28/2024 4:55 AM EDT 10/28/2024 4:57 AM EDT Harvey Domínguez III, MD POINT OF CARE TEST ORDERABLES Final Result [facility] [address] * TEG-Bypass/ECMO/Liver HN (Factor function, Platelet/Fibrin Clot Strength w/Clot Breakdown, Heparinase In All Channels) (10/28/2024 4:13 AM EDT) Citrated Kaolin Reaction Time (TEGECMOLIVER) 7.2 4.6 - 9.1 minutes 10/28/2024 5:38 AM EDT [facility] Citrated Kaolin W/Heparinase Reaction Time (TEGECMOLIVER) 7.8 4.3 - 8.3 minutes 10/28/2024 5:38 AM EDT [facility] Citrated Kaolin Maximum Amplitude (TEGECMOLIVER) 53.0 52.0 - 69.0 mm 10/28/2024 5:38 AM EDT [facility] Citrated Functional Fibrinogen W/Heparinase Maximum Amplitude(TEGEC MOLIVER) 21.4 15.0 - 34.0 mm 10/28/2024 5:38 AM EDT [facility] Citrated Rapid Teg W/Heparinase Maximum Amplitude (TEGECMOLIVER) 54.7 53.0 - 69.0 mm 10/28/2024 5:38 AM EDT [facility] Citrated Kaolin w/Heparinase Percent Lysis (TEGECMOLIVER) 0.0 0.0 - 3.2 % 10/28/2024 5:38 AM EDT [facility] Whole Blood (Citrate) 10/28/2024 4:13 AM EDT 10/28/2024 4:28 AM EDT Kemar Sahni MD LAB BLOOD ORDERABLES Final Result Performing Organization Address [facility] Co de Phone Number [facility] [address] [facility]. [address] * Protime-INR (10/28/2024 4:13 AM EDT) Protime 14.6 12.1 - 15.1 seconds 10/28/2024 4:53 AM EDT [facility] INR 1.1 0.9 - 1.1 10/28/2024 4:53 AM EDT [facility] Comment: RECOMMENDED THERAPEUTIC RANGES USING INR : Stable oral anticoagulant therapy: 2.0 - 3.0 Mechanical prosthetic heart valve: 2.5 - 3.5 Recurrent acute myocardial infarction: 2.5 - 3.5 Plasma 10/28/2024 4:13 AM EDT 10/28/2024 4:41 AM EDT Kemar Sahni MD LAB BLOOD ORDERABLES Final Result Performing Organization Address City/[facility]/ZIP Co de Phone Number [facility] [address] [facility]. [address] * Magnesium (10/28/2024 4:13 AM EDT) Magnesium 2.2 1.5 - 2.5 mg/dL 10/28/2024 5:15 AM EDT [facility] Plasma 10/28/2024 4:13 AM EDT 10/28/2024 4:41 AM EDT Kemar Sahni MD LAB BLOOD ORDERABLES Final Result [facility] [address] * (ABNORMAL) Hepatic Function Panel (10/28/2024 4:13 AM EDT) Total Bilirubin 2.3(H) 0.0 - 1.5 mg/dL 10/28/2024 5:15 AM EDT [facility] Bilirubin, Direct 1.67(H) 0.00 - 0.40 mg/dL 10/28/2024 5:15 AM EDT [facility] AST 44(H) 13 - 39 U/L 10/28/2024 5:15 AM EDT [facility] ALT 101(H) 7 - 52 U/L 10/28/2024 5:15 AM EDT [facility] Alkaline Phosphatase 26(L) 36 - 125 U/L 10/28/2024 5:15 AM EDT [facility] Total Protein 4.5(L) 6.4 - 8.9 g/dL 10/28/2024 5:15 AM EDT [facility] Albumin 3.1(L) 3.5 - 5.7 g/dL 10/28/2024 5:15 AM EDT [facility] Bilirubin, Indirect 0.63 0.00 - 1.10 mg/dL 10/28/2024 5:15 AM EDT [facility] Plasma 10/28/2024 4:13 AM EDT 10/28/2024 4:41 AM EDT Kemar Sahni MD LAB BLOOD ORDERABLES Final Result [facility] [address] * (ABNORMAL) Renal Function Panel w/EGFR (10/28/2024 4:13 AM EDT) Sodium 142 133 - 146 mmol/L 10/28/2024 5:15 AM EDT [facility] Potassium 3.5 3.5 - 5.3 mmol/L 10/28/2024 5:15 AM EDT [facility] Chloride 111(H) 98 - 110 mmol/L 10/28/2024 5:15 AM EDT [facility] CO2 22 21 - 33 mmol/L 10/28/2024 5:15 AM EDT [facility] Anion Gap 9 3 - 16 mmol/L 10/28/2024 5:15 AM EDT [facility] BUN 58(H) 7 - 25 mg/dL 10/28/2024 5:15 AM EDT [facility] Creatinine 2.24(H) 0.60 - 1.30 mg/dL 10/28/2024 5:15 AM EDT [facility] Glucose 103(H) 70 - 100 mg/dL 10/28/2024 5:15 AM EDT [facility] Calcium 9.1 8.6 - 10.3 mg/dL 10/28/2024 5:15 AM EDT [facility] Phosphorus 4.8(H) 2.1 - 4.7 mg/dL 10/28/2024 5:15 AM EDT [facility] Albumin 3.1(L) 3.5 - 5.7 g/dL 10/28/2024 5:15 AM EDT [facility] Osmolality, Calculated 310(H) 278 - 305 mOsm/kg 10/28/2024 5:15 AM EDT [facility] EGFR 37 10/28/2024 5:15 AM EDT [facility] Comment:As of [...] Sahni MD LAB BLOOD ORDERABLES Final Result [facility] [address] [place] [address], [facility] * (ABNORMAL) CBC (10/28/2024 4:13 AM EDT) WBC 4.5 3.8 - 10.8 10E3/uL 10/28/2024 5:09 AM EDT [facility] RBC 2.39(L) 4.20 - 5.80 10E6/uL 10/28/2024 5:09 AM EDT [facility] Hemoglobin 7.3(L) 13.2 - 17.1 g/dL 10/28/2024 5:09 AM EDT [facility] Hematocrit 21.0(L) 38.5 - 50.0 % 10/28/2024 5:09 AM EDT [facility] MCV 87.8 80.0 - 100.0 fL 10/28/2024 5:09 AM EDT [facility] MCH 30.5 27.0 - 33.0 pg 10/28/2024 5:09 AM EDT [facility] MCHC 34.7 32.0 - 36.0 g/dL 10/28/2024 5:09 AM EDT [facility] RDW 18.7(H) 11.0 - 15.0 % 10/28/2024 5:09 AM EDT [facility] Platelets 38(L) 140 - 400 10E3/uL 10/28/2024 5:09 AM EDT [facility] Comment: CNV Specimen checked for clots. None detected. MPV 7.6 7.5 - 11.5 fL 10/28/2024 5:09 AM EDT [facility] Whole Blood 10/28/2024 4:13 AM EDT 10/28/2024 4:41 AM EDT us Kemar Sahni MD LAB BLOOD ORDERABLES Final Result Performing Organization Address City/[facility]/ZIP Co de Phone Number [facility] [address] [facility]. [address] * (ABNORMAL) POC Glucose Monitoring Device (10/28/2024 4:04 AM EDT) POC Glucose Monitoring Device 103(H) 70 - 100 mg/dL 10/28/2024 4:05 AM EDT [facility] Blood 10/28/2024 4:04 AM EDT 10/28/2024 4:05 AM EDT Harvey Domínguez III, MD POINT OF CARE TEST ORDERABLES Final Result Performing Organization Address City/[facility] Co de Phone Number [facility] [address] [facility]. [address] * (ABNORMAL) POC Glucose Monitoring Device (10/28/2024 3:00 AM EDT) POC Glucose Monitoring Device 106(H) 70 - 100 mg/dL 10/28/2024 3:01 AM EDT [facility] Blood 10/28/2024 3:00 AM EDT 10/28/2024 3:01 AM EDT us Harvey Domínguez III, MD POINT OF CARE TEST ORDERABLES Final Result Performing Organization Address City/[facility]/ZIP Co de Phone Number [facility] [address] [facility]. [address] * (ABNORMAL) POC Glucose Monitoring Device (10/28/2024 2:32 AM EDT) POC Glucose Monitoring Device 109(H) 70 - 100 mg/dL 10/28/2024 2:33 AM EDT [facility] Blood 10/28/2024 2:32 AM EDT 10/28/2024 2:33 AM EDT us Harvey Domínguez III, MD POINT OF CARE TEST ORDERABLES Final Result Performing Organization Address [facility] Co de Phone Number [facility] [address] [facility]. [address] * (ABNORMAL) POC Glucose Monitoring Device (10/28/2024 2:14 AM EDT) POC Glucose Monitoring Device 115(H) 70 - 100 mg/dL 10/28/2024 2:15 AM EDT [facility] Blood 10/28/2024 2:14 AM EDT 10/28/2024 2:15 AM EDT Harvey Domínguez III, MD POINT OF CARE TEST ORDERABLES Final Result Performing Organization Address [facility] Co de Phone Number [facility] [address] [facility]. [address] * (ABNORMAL) POC Glucose Monitoring Device (10/28/2024 2:03 AM EDT) POC Glucose Monitoring Device 101(H) 70 - 100 mg/dL 10/28/2024 2:04 AM EDT [facility] Blood 10/28/2024 2:03 AM EDT 10/28/2024 2:04 AM EDT Harvey Domínguez III, MD POINT OF CARE TEST ORDERABLES Final Result Performing Organization Address [facility] Co de Phone Number [facility] [address] [facility]. [address] * Transfuse RBC Transfusion Rate: Per dept routine (10/28/2024 1:51 AM EDT) John Moreno MD NURSING TREATMENT ORDERABLES - BLOOD ADMIN Final Result Performing Organization Address City/[facility] Co de Phone Number EXTERNAL [...] - 9.1 minutes 10/28/2024 1:22 AM EDT [facility] Citrated Kaolin W/Heparinase Reaction Time (TEGECMOLIVER) 7.7 4.3 - 8.3 minutes 10/28/2024 1:22 AM EDT [facility] Citrated Kaolin Maximum Amplitude (TEGECMOLIVER) 54.4 52.0 - 69.0 mm 10/28/2024 1:22 AM EDT [facility] Citrated Functional Fibrinogen W/Heparinase Maximum Amplitude(TEGEC MOLIVER) 20.4 15.0 - 34.0 mm 10/28/2024 1:22 AM EDT [facility] Citrated Rapid Teg W/Heparinase Maximum Amplitude (TEGECMOLIVER) 51.0(L) 53.0 - 69.0 mm 10/28/2024 1:22 AM EDT [facility] Citrated Kaolin w/Heparinase Percent Lysis (TEGECMOLIVER) 0.0 0.0 - 3.2 % 10/28/2024 1:22 AM EDT [facility] Whole Blood (Citrate) 10/28/2024 12:05 AM EDT 10/28/2024 12:09 AM EDT us Kemar Sahni MD LAB BLOOD ORDERABLES Final Result [facility] [address] [place] [address], [facility] * Magnesium (10/28/2024 12:05 AM EDT) Magnesium 2.2 1.5 - 2.5 mg/dL 10/28/2024 1:59 AM EDT [facility] Plasma 10/28/2024 12:0 5 AM EDT 10/28/2024 12:11 AM EDT us Kemar Sahni MD LAB BLOOD ORDERABLES Final Result [facility] [address] [place] [address], [facility] * (ABNORMAL) Renal Function Panel w/EGFR (10/28/2024 12:05 AM EDT) Sodium 144 133 - 146 mmol/L 10/28/2024 1:59 AM EDT [facility] Potassium 3.4(L) 3.5 - 5.3 mmol/L 10/28/2024 1:59 AM EDT [facility] Chloride 112(H) 98 - 110 mmol/L 10/28/2024 1:59 AM EDT [facility] CO2 19(L) 21 - 33 mmol/L 10/28/2024 1:59 AM EDT [facility] Anion Gap 13 3 - 16 mmol/L 10/28/2024 1:59 AM EDT [facility] BUN 59(H) 7 - 25 mg/dL 10/28/2024 1:59 AM EDT [facility] Creatinine 2.42(H) 0.60 - 1.30 mg/dL 10/28/2024 1:59 AM EDT [facility] Glucose 118(H) 70 - 100 mg/dL 10/28/2024 1:59 AM EDT [facility] Calcium 9.0 8.6 - 10.3 mg/dL 10/28/2024 1:59 AM EDT [facility] Phosphorus 5.3(H) 2.1 - 4.7 mg/dL 10/28/2024 1:59 AM EDT [facility] Albumin 3.1(L) 3.5 - 5.7 g/dL 10/28/2024 1:59 AM EDT [facility] Osmolality, Calculated 316(H) 278 - 305 mOsm/kg 10/28/2024 1:59 AM EDT [facility] EGFR 34 10/28/2024 1:59 AM EDT [facility] Comment:As of [...] Sahni MD LAB BLOOD ORDERABLES Final Result [facility] [address] * (ABNORMAL) Differential (10/28/2024 12:05 AM EDT) Neutrophils Relative 88.6(H) 40.0 - 80.0 % 10/28/2024 12:41 AM EDT [facility] Lymphocytes Relative 2.5(L) 15.0 - 45.0 % 10/28/2024 12:41 AM EDT [facility] Monocytes Relative 6.1 0.0 - 12.0 % 10/28/2024 12:41 AM EDT [facility] Eosinophils Relative 2.4 0.0 - 8.0 % 10/28/2024 12:41 AM EDT [facility] Basophils Relative 0.4 0.0 - 1.0 % 10/28/2024 12:41 AM EDT [facility] nRBC 0 0 - 0 /100 WBC 10/28/2024 12:41 AM EDT [facility] Neutrophils Absolute 4,341 1,520 - 8,640 /uL 10/28/2024 12:41 AM EDT [facility] Lymphocytes Absolute 123(L) 570 - 4,860 /uL 10/28/2024 12:41 AM EDT [facility] Monocytes Absolute 299 0 - 1,296 /uL 10/28/2024 12:41 AM EDT [facility] Eosinophils Absolute 118 0 - 864 /uL 10/28/2024 12:41 AM EDT [facility] Basophils Absolute 20 0 - 108 /uL 10/28/2024 12:41 AM EDT [facility] Whole Blood 10/28/2024 12:0 5 AM EDT 10/28/2024 12:11 AM EDT Kemar Sahni MD LAB BLOOD ORDERABLES Final Result [facility] [address] [place] [address], [facility] * (ABNORMAL) CBC (10/28/2024 12:05 AM EDT) WBC 4.9 3.8 - 10.8 10E3/uL 10/28/2024 12:41 AM EDT [facility] RBC 2.18(L) 4.20 - 5.80 10E6/uL 10/28/2024 12:41 AM EDT [facility] Hemoglobin 6.7(L) 13.2 - 17.1 g/dL 10/28/2024 12:41 AM EDT [facility] Hematocrit 19.2(L) 38.5 - 50.0 % 10/28/2024 12:41 AM EDT [facility] MCV 87.8 80.0 - 100.0 fL 10/28/2024 12:41 AM EDT [facility] MCH 30.6 27.0 - 33.0 pg 10/28/2024 12:41 AM EDT [facility] MCHC 34.8 32.0 - 36.0 g/dL 10/28/2024 12:41 AM EDT [facility] RDW 19.6(H) 11.0 - 15.0 % 10/28/2024 12:41 AM EDT [facility] Platelets 45(L) 140 - 400 10E3/uL 10/28/2024 12:41 AM EDT [facility] Comment: CNV Specimen checked for clots. None detected. MPV 7.8 7.5 - 11.5 fL 10/28/2024 12:41 AM EDT [facility] Whole Blood 10/28/2024 12:0 5 AM EDT 10/28/2024 12:11 AM EDT Kemar Sahni MD LAB BLOOD ORDERABLES Final Result [facility] [address] [facility]. [address] * (ABNORMAL) POC Glucose Monitoring Device (10/28/2024 12:03 AM EDT) POC Glucose Monitoring Device 122(H) 70 - 100 mg/dL 10/28/2024 12:04 AM EDT [facility] Blood 10/28/2024 12:0 3 AM EDT 10/28/2024 12:04 AM EDT Harvey Domínguez III, MD POINT OF CARE TEST ORDERABLES Final Result Performing Organization Address [facility]/ZIP Co de Phone Number [facility] [address] [facility]. [address] * (ABNORMAL) POC Glucose Monitoring Device (10/27/2024 10:03 PM EDT) POC Glucose Monitoring Device 127(H) 70 - 100 mg/dL 10/27/2024 10:03 PM EDT [facility] Blood 10/27/2024 10:0 3 PM EDT 10/27/2024 10:03 PM EDT Harvey Domínguez III, MD POINT OF CARE TEST ORDERABLES Final Result [facility] [address] [facility]. [address] * (ABNORMAL) POC Glucose Monitoring Device (10/27/2024 8:06 PM EDT) POC Glucose Monitoring Device 128(H) 70 - 100 mg/dL 10/27/2024 8:45 PM EDT [facility] Blood 10/27/2024 8:06 PM EDT 10/27/2024 8:45 PM EDT Harvey Domínguez III, MD POINT OF CARE TEST ORDERABLES Final Result Performing Organization Address [facility] Co de Phone Number [facility] [address] [facility]. [address] * (ABNORMAL) POC Glucose Monitoring Device (10/27/2024 6:00 PM EDT) POC Glucose Monitoring Device 128(H) 70 - 100 mg/dL 10/27/2024 6:00 PM EDT [facility] Blood 10/27/2024 6:00 PM EDT 10/27/2024 6:00 PM EDT Harvey Domínguez III, MD POINT OF CARE TEST ORDERABLES Final Result Performing Organization Address [facility] Co de Phone Number [facility] [address] [facility]. [address] * Lactic Acid, STAT (10/27/2024 5:41 PM EDT) Lactate 0.5 0.5 - 2.2 mmol/L 10/27/2024 6:28 PM EDT [facility] Plasma 10/27/2024 5:41 PM EDT 10/27/2024 5:49 PM EDT Narrative [facility] - 10/27/2024 6:28 PM EDT Redraw us John Moreno MD LAB BLOOD ORDERABLES Final R esult Performing Organization Address [facility] Co de Phone Number [facility] [address] [facility]. [address] * (ABNORMAL) Hepatic Function Panel, STAT (10/27/2024 5:13 PM EDT) Total Bilirubin 1.7(H) 0.0 - 1.5 mg/dL 10/27/2024 5:50 PM EDT [facility] Bilirubin, Direct 1.17(H) 0.00 - 0.40 mg/dL 10/27/2024 5:50 PM EDT [facility] AST 60(H) 13 - 39 U/L 10/27/2024 5:50 PM EDT [facility] ALT 134(H) 7 - 52 U/L 10/27/2024 5:50 PM EDT [facility] Alkaline Phosphatase 27(L) 36 - 125 U/L 10/27/2024 5:50 PM EDT [facility] Total Protein 4.1(L) 6.4 - 8.9 g/dL 10/27/2024 5:50 PM EDT [facility] Albumin 2.9(L) 3.5 - 5.7 g/dL 10/27/2024 5:50 PM EDT [facility] Bilirubin, Indirect 0.53 0.00 - 1.10 mg/dL 10/27/2024 5:50 PM EDT [facility] Plasma 10/27/2024 5:13 PM EDT 10/27/2024 5:23 PM EDT us Shay Plata MD LAB BLOOD ORDERABLES Final Result [facility] [address] [place] [address], [facility] * (ABNORMAL) TEG-Bypass/ECMO/Liver HN (Factor function, Platelet/Fibrin Clot Strength w/Clot Breakdown, Heparinase In All Channels) (10/27/2024 5:13 PM EDT) [facility] Citrated Kaolin Reaction Time (TEGECMOLIVER) 8.0 4.6 - 9.1 minutes 10/27/2024 6:56 PM EDT [facility] Citrated Kaolin W/Heparinase Reaction Time (TEGECMOLIVER) 6.8 4.3 - 8.3 minutes 10/27/2024 6:56 PM EDT [facility] Citrated Kaolin Maximum Amplitude (TEGECMOLIVER) 55.4 52.0 - 69.0 mm 10/27/2024 6:56 PM EDT [facility] Citrated Functional Fibrinogen W/Heparinase Maximum Amplitude(TEGEC MOLIVER) 22.9 15.0 - 34.0 mm 10/27/2024 6:56 PM EDT [facility] Citrated Rapid Teg W/Heparinase Maximum Amplitude (TEGECMOLIVER) 50.8(L) 53.0 - 69.0 mm 10/27/2024 6:56 PM EDT [facility] Citrated Kaolin w/Heparinase Percent Lysis (TEGECMOLIVER) 0.1 0.0 - 3.2 % 10/27/2024 6:56 PM EDT [facility] Whole Blood (Citrate) 10/27/2024 5:13 PM EDT 10/27/2024 5:20 PM EDT Result [facility] Kemar Sahni MD LAB BLOOD ORDERABLES Final Result Performing Organization Address [facility] Co de Phone Number [facility] [address] [facility]. [address] * (ABNORMAL) Protime-INR (10/27/2024 5:13 PM EDT) Protime 15.2(H) 12.1 - 15.1 seconds 10/27/2024 5:40 PM EDT [facility] INR 1.1 0.9 - 1.1 10/27/2024 5:40 PM EDT [facility] Comment: RECOMMENDED THERAPEUTIC RANGES USING INR : Stable oral anticoagulant therapy: 2.0 - 3.0 Mechanical prosthetic heart valve: 2.5 - 3.5 Recurrent acute myocardial infarction: 2.5 - 3.5 Plasma 10/27/2024 5:13 PM EDT 10/27/2024 5:23 PM EDT Kemar Sahni MD LAB BLOOD ORDERABLES Final Result Performing Organization Address City/[facility] Co de Phone Number [facility] [address] [facility]. [address] * Magnesium (10/27/2024 5:13 PM EDT) Magnesium 2.4 1.5 - 2.5 mg/dL 10/27/2024 5:53 PM EDT [facility] Plasma 10/27/2024 5:13 PM EDT 10/27/2024 5:23 PM EDT Kemar Sahni MD LAB BLOOD ORDERABLES Final Result [facility] [address] [facility]. [address] * (ABNORMAL) Hepatic Function Panel (10/27/2024 5:13 PM EDT) Total Bilirubin 1.7(H) 0.0 - 1.5 mg/dL 10/27/2024 5:53 PM EDT [facility] Bilirubin, Direct 1.10(H) 0.00 - 0.40 mg/dL 10/27/2024 5:53 PM EDT [facility] AST 62(H) 13 - 39 U/L 10/27/2024 5:53 PM EDT [facility] ALT 134(H) 7 - 52 U/L 10/27/2024 5:53 PM EDT [facility] Alkaline Phosphatase 27(L) 36 - 125 U/L 10/27/2024 5:53 PM EDT [facility] Total Protein 4.1(L) 6.4 - 8.9 g/dL 10/27/2024 5:53 PM EDT [facility] Albumin 2.9(L) 3.5 - 5.7 g/dL 10/27/2024 5:53 PM EDT [facility] Bilirubin, Indirect 0.60 0.00 - 1.10 mg/dL 10/27/2024 5:53 PM EDT [facility] Plasma 10/27/2024 5:13 PM EDT 10/27/2024 5:23 PM EDT Kemar Sahni MD LAB BLOOD ORDERABLES Final Result [facility] [address] [place] [facility]. [address] * (ABNORMAL) Renal Function Panel w/EGFR (10/27/2024 5:13 PM EDT) Sodium 142 133 - 146 mmol/L 10/27/2024 5:53 PM EDT [facility] Potassium 3.4(L) 3.5 - 5.3 mmol/L 10/27/2024 5:53 PM EDT [facility] Chloride 109 98 - 110 mmol/L 10/27/2024 5:53 PM EDT [facility] CO2 22 21 - 33 mmol/L 10/27/2024 5:53 PM EDT [facility] Anion Gap 11 3 - 16 mmol/L 10/27/2024 5:53 PM EDT [facility] BUN 61(H) 7 - 25 mg/dL 10/27/2024 5:53 PM EDT [facility] Creatinine 2.42(H) 0.60 - 1.30 mg/dL 10/27/2024 5:53 PM EDT [facility] Glucose 125(H) 70 - 100 mg/dL 10/27/2024 5:53 PM EDT [facility] Calcium 8.8 8.6 - 10.3 mg/dL 10/27/2024 5:53 PM EDT [facility] Phosphorus 5.7(H) 2.1 - 4.7 mg/dL 10/27/2024 5:53 PM EDT [facility] Albumin 2.9(L) 3.5 - 5.7 g/dL 10/27/2024 5:53 PM EDT [facility] Osmolality, Calculated 313(H) 278 - 305 mOsm/kg 10/27/2024 5:53 PM EDT [facility] EGFR 34 10/27/2024 5:53 PM EDT [facility] Comment:As [...] Sahni MD LAB BLOOD ORDERABLES Final Result [facility] [address] [place] [address], [facility] * (ABNORMAL) CBC (10/27/2024 5:13 PM EDT) WBC 4.9 3.8 - 10.8 10E3/uL 10/27/2024 6:14 PM EDT [facility] RBC 2.44(L) 4.20 - 5.80 10E6/uL 10/27/2024 6:14 PM EDT [facility] Hemoglobin 7.4(L) 13.2 - 17.1 g/dL 10/27/2024 6:14 PM EDT [facility] Hematocrit 21.4(L) 38.5 - 50.0 % 10/27/2024 6:14 PM EDT [facility] MCV 87.6 80.0 - 100.0 fL 10/27/2024 6:14 PM EDT [facility] MCH 30.3 27.0 - 33.0 pg 10/27/2024 6:14 PM EDT [facility] MCHC 34.6 32.0 - 36.0 g/dL 10/27/2024 6:14 PM EDT [facility] RDW 19.6(H) 11.0 - 15.0 % 10/27/2024 6:14 PM EDT [facility] Platelets 47(L) 140 - 400 10E3/uL 10/27/2024 6:14 PM EDT [facility] Comment: CNV Specimen checked for clots. None detected. MPV 8.1 7.5 - 11.5 fL 10/27/2024 6:14 PM EDT [facility] Whole Blood 10/27/2024 5:13 PM EDT 10/27/2024 5:23 PM EDT Kemar Sahni MD LAB BLOOD ORDERABLES Final Result Performing Organization Address City/[facility]/ZIP Co de Phone Number [facility] [address] * (ABNORMAL) POC Glucose Monitoring Device (10/27/2024 3:57 PM EDT) [facility] POC Glucose Monitoring Device 131(H) 70 - 100 mg/dL 10/27/2024 3:58 PM EDT [facility] Blood 10/27/2024 3:57 PM EDT 10/27/2024 3:58 PM EDT Harvey Domínguez III, MD POINT OF CARE TEST ORDERABLES Final Result Performing Organization Address [facility] Co de Phone Number [facility] [address] * (ABNORMAL) CBC, STAT (10/27/2024 2:40 PM EDT) [facility] WBC 5.8 3.8 - 10.8 10E3/uL 10/27/2024 2:54 PM EDT [facility] RBC 2.43(L) 4.20 - 5.80 10E6/uL 10/27/2024 2:54 PM EDT [facility] Hemoglobin 7.5(L) 13.2 - 17.1 g/dL 10/27/2024 2:54 PM EDT [facility] Hematocrit 21.5(L) 38.5 - 50.0 % 10/27/2024 2:54 PM EDT [facility] MCV 88.2 80.0 - 100.0 fL 10/27/2024 2:54 PM EDT [facility] MCH 30.7 27.0 - 33.0 pg 10/27/2024 2:54 PM EDT [facility] MCHC 34.8 32.0 - 36.0 g/dL 10/27/2024 2:54 PM EDT [facility] RDW 19.1(H) 11.0 - 15.0 % 10/27/2024 2:54 PM EDT [facility] Platelets 50(L) 140 - 400 10E3/uL 10/27/2024 2:54 PM EDT [facility] MPV 7.5 7.5 - 11.5 fL 10/27/2024 2:54 PM EDT [facility] Whole Blood 10/27/2024 2:40 PM EDT 10/27/2024 2:44 PM EDT us John Moreno MD LAB BLOOD ORDERABLES Final R esult [facility] [address] [place] [address], [facility] * (ABNORMAL) Blood Gas, Arterial, STAT (10/27/2024 2:40 PM EDT) O2 Sat, Arterial 98 10/27/2024 2:46 PM EDT [facility] FIO2 RA 10/27/2024 2:46 PM EDT [facility] pH, Arterial 7.37 7.35 - 7.45 10/27/2024 2:46 PM EDT [facility] pCO2, Arterial 35 35 - 45 mm Hg 10/27/2024 2:46 PM EDT [facility] pO2, Arterial 92 80 - 100 mm Hg 10/27/2024 2:46 PM EDT [facility] HCO3, Arterial 21(L) 22 - 26 mmol/L 10/27/2024 2:46 PM EDT [facility] CO2 Content,Arteri al 21(L) 23 - 27 mmol/L 10/27/2024 2:46 PM EDT [facility] Base Excess, Arterial -4.6(L) -2.0 - 3.0 mmol/L 10/27/2024 2:46 PM EDT [facility] %HBO2, Arterial 95.4 95.0 - 98.0 % 10/27/2024 2:46 PM EDT [facility] Carboxyhemoglo bin, Arterial 1.6 % 10/27/2024 2:46 PM EDT [facility] Comment: CARBOXYHEMOGLOBIN (CO) REFERENCE RANGES: Non-Smokers: <2 % Smokers: <8 % TOXIC: >20 % Methemoglobin, Arterial 1.0 0.0 - 1.5 % 10/27/2024 2:46 PM EDT [facility] Reduced hemoglobin, Arterial 2.1 0.0 - 5.0 % 10/27/2024 2:46 PM EDT [facility] Blood, Arterial 10/27/2024 2 :40 PM EDT 10/27/2024 2:44 PM EDT Narrative [facility] - 10/27/2024 2:46 PM EDT Post extubation John Moreno MD LAB BLOOD ORDERABLES Final R esult [facility] [address] [facility]. [address] * (ABNORMAL) POC Glucose Monitoring Device (10/27/2024 2:06 PM EDT) POC Glucose Monitoring Device 134(H) 70 - 100 mg/dL 10/27/2024 2:06 PM EDT [facility] Blood 10/27/2024 2:06 PM EDT 10/27/2024 2:06 PM EDT Harvey Domínguez III, MD POINT OF CARE TEST ORDERABLES Final Result Performing Organization Address [facility] Co de Phone Number [facility] [address] [facility]. [address] * (ABNORMAL) Blood gas, arterial (10/27/2024 12:35 PM EDT) O2 Sat, Arterial 99 10/27/2024 12:46 PM EDT [facility] FIO2 SBT 30% 10/27/2024 12:46 PM EDT [facility] pH, Arterial 7.35 7.35 - 7.45 10/27/2024 12:46 PM EDT [facility] pCO2, Arterial 37 35 - 45 mm Hg 10/27/2024 12:46 PM EDT [facility] pO2, Arterial 182(H) 80 - 100 mm Hg 10/27/2024 12:46 PM EDT [facility] HCO3, Arterial 21(L) 22 - 26 mmol/L 10/27/2024 12:46 PM EDT [facility] CO2 Content,Arteri al 22(L) 23 - 27 mmol/L 10/27/2024 12:46 PM EDT [facility] Base Excess, Arterial -4.8(L) -2.0 - 3.0 mmol/L 10/27/2024 12:46 PM EDT [facility] %HBO2, Arterial 96.3 95.0 - 98.0 % 10/27/2024 12:46 PM EDT [facility] Carboxyhemoglo bin, Arterial 1.7 % 10/27/2024 12:46 PM EDT [facility] Comment: CARBOXYHEMOGLOBIN (CO) REFERENCE RANGES: Non-Smokers: <2 % Smokers: <8 % TOXIC: >20 % Methemoglobin, Arterial 1.4 0.0 - 1.5 % 10/27/2024 12:46 PM EDT [facility] Reduced hemoglobin, Arterial 0.6 0.0 - 5.0 % 10/27/2024 12:46 PM EDT [facility] Blood, Arterial 10/27/2024 1 2:35 PM EDT 10/27/2024 12:42 PM EDT Narrative [facility] - 10/27/2024 12:46 PM EDT Please obtain post SBT us Shay Sifuentes MD LAB BLOOD ORDERABLES Final Resu lt [facility] [address] [place] [id number] * (ABNORMAL) TEG-Bypass/ECMO/Liver HN (Factor function, Platelet/Fibrin Clot Strength w/Clot Breakdown, Heparinase In All Channels) (10/27/2024 12:07 PM EDT) Citrated Kaolin Reaction Time (TEGECMOLIVER) 7.9 4.6 - 9.1 minutes 10/27/2024 1:24 PM EDT [facility] Citrated Kaolin W/Heparinase Reaction Time (TEGECMOLIVER) 8.3 4.3 - 8.3 minutes 10/27/2024 1:24 PM EDT [facility] Citrated Kaolin Maximum Amplitude (TEGECMOLIVER) 52.0 52.0 - 69.0 mm 10/27/2024 1:24 PM EDT [facility] Citrated Functional Fibrinogen W/Heparinase Maximum Amplitude(TEGEC MOLIVER) 20.1 15.0 - 34.0 mm 10/27/2024 1:24 PM EDT [facility] Citrated Rapid Teg W/Heparinase Maximum Amplitude (TEGECMOLIVER) 49.4(L) 53.0 - 69.0 mm 10/27/2024 1:24 PM EDT [facility] Citrated Kaolin w/Heparinase Percent Lysis (TEGECMOLIVER) 0.0 0.0 - 3.2 % 10/27/2024 1:24 PM EDT [facility] Whole Blood (Citrate) 10/27/2024 12:07 PM EDT 10/27/2024 12:09 PM EDT Kemar Sahni MD LAB BLOOD ORDERABLES Final Result Performing Organization Address City/[facility]/ZIP Co de Phone Number [facility] [address] * (ABNORMAL) POC Glucose Monitoring Device (10/27/2024 12:01 PM EDT) POC Glucose Monitoring Device 121(H) 70 - 100 mg/dL 10/27/2024 12:02 PM EDT [facility] Blood 10/27/2024 12:0 1 PM EDT 10/27/2024 12:01 PM EDT Harvey Domínguez III, MD POINT OF CARE TEST ORDERABLES Final Result [facility] [address] * (ABNORMAL) POC Glucose Monitoring Device (10/27/2024 10:59 AM EDT) POC Glucose Monitoring Device 126(H) 70 - 100 mg/dL 10/27/2024 11:10 AM EDT [facility] Blood 10/27/2024 10:5 9 AM EDT 10/27/2024 11:10 AM EDT Harvey Domínguez III, MD POINT OF CARE TEST ORDERABLES Final Result [facility] [address] [place] [address], [facility] * ECG 12 lead (MUSE) (10/27/2024 10:17 AM EDT) 10/27/2024 10:1 7 AM EDT Narrative MUSE - 10/27/2024 2:51 PM EDT Ventricular Rate: 91 BPM Atrial Rate: 91 BPM P-R Interval: 168 ms QRS Duration: 90 ms QT: 274 ms QTc: 337 ms P [place]: 60 degrees R [place]: -30 degrees T [place]: -15 degrees Diagnosis Line: NORMAL SINUS RHYTHM ^ LEFT AXIS DEVIATION, LEFT ANTERIOR HEMIBLOCK ^ NONSPECIFIC T WAVE CHANGE ^ ABNORMAL ECG ^ ^ Confirmed by MD ROLLY, [facility] ([id number]) on 10/27/2024 2:51:52 PM Shay Sifuentes MD ECG ORDERABLES Final Result Performing Organization Address City/[facility] Co de Phone Number MUSE * (ABNORMAL) POC Glucose Monitoring Device (10/27/2024 10:00 AM EDT) POC Glucose Monitoring Device 121(H) 70 - 100 mg/dL 10/27/2024 10:01 AM EDT [facility] Blood 10/27/2024 10:0 0 AM EDT 10/27/2024 10:01 AM EDT Harvey Dmoínguez III, MD POINT OF CARE TEST ORDERABLES Final Result [facility] [address] [place] [address], [facility] * [...] US ORDERABLES Final Result * US Duplex Qjg-Pit-Cxeomgn Comp (10/27/2024 9:51 AM EDT) Anatomical Region [...] EXAM: US ABDOMEN LIMITED EXAM: US DUPLEX [id number] COMPLETE INDICATION: Post-op liver transplant COMPARISON: None [...] absent.. Pancreas: Obscured by overlying bowel gas. [place] right kidney: 12.5 cm in length. Normal [...] EXAM: US ABDOMEN LIMITED EXAM: US DUPLEX [id number] COMPLETE INDICATION: Post-op liver transplant COMPARISON: None [...] absent.. Pancreas: Obscured by overlying bowel gas. [place] right kidney: 12.5 cm in length. Normal [...] EXAM: US ABDOMEN LIMITED EXAM: US DUPLEX [id number] COMPLETE INDICATION: Post-op liver transplant COMPARISON: None [...] absent.. Pancreas: Obscured by overlying bowel gas. [place] right kidney: 12.5 cm in length. Normal [...] EXAM: US ABDOMEN LIMITED EXAM: US DUPLEX [id number] COMPLETE INDICATION: Post-op liver transplant COMPARISON: None [...] absent.. Pancreas: Obscured by overlying bowel gas. [place] right kidney: 12.5 cm in length. Normal [...] 10:38 AM EDT us Sveta Judge MD [facility] [place] ORDERABLES Final Result * CARISA Rhythm Strip - Scan (10/27/2024 9:25 AM EDT) us Scanning Uchhi SCAN DOCS - NO RESULTS Final Res ult * (ABNORMAL) POC Glucose Monitoring Device (10/27/2024 9:05 AM EDT) [facility] POC Glucose Monitoring Device 118(H) 70 - 100 mg/dL 10/27/2024 9:06 AM EDT [facility] Blood 10/27/2024 9:05 AM EDT 10/27/2024 9:06 AM EDT us Harvey Domínguez III, MD POINT OF CARE TEST ORDERABLES Final Result [facility] [address] [place] [address], [facility] * [...] Protime-INR, STAT (10/27/2024 8:16 AM EDT) Pathologist [facility] Protime 16.2(H) 12.1 - 15.1 seconds 10/27/2024 8:35 AM EDT [facility] INR 1.2(H) 0.9 - 1.1 10/27/2024 8:35 AM EDT [facility] Comment: RECOMMENDED THERAPEUTIC RANGES USING INR : Stable oral anticoagulant therapy: 2.0 - 3.0 Mechanical prosthetic heart valve: 2.5 - 3.5 Recurrent acute myocardial infarction: 2.5 - 3.5 Plasma 10/27/2024 8:16 AM EDT 10/27/2024 8:20 AM EDT John Moreno MD LAB BLOOD ORDERABLES Final R esult Performing Organization Address City/[facility]/ZIP Co de Phone Number [facility] [address] * Magnesium (10/27/2024 8:00 AM EDT) [facility] Magnesium 1.8 1.5 - 2.5 mg/dL 10/27/2024 10:50 AM EDT [facility] Plasma 10/27/2024 8:00 AM EDT 10/27/2024 10:31 AM EDT Kemar Sahni MD LAB BLOOD ORDERABLES Final Result [facility] [address] * (ABNORMAL) Renal Function Panel w/EGFR (10/27/2024 8:00 AM EDT) Pathologist [facility] Sodium 142 133 - 146 mmol/L 10/27/2024 10:18 AM EDT [facility] Potassium 3.0(L) 3.5 - 5.3 mmol/L 10/27/2024 10:18 AM EDT [facility] Chloride 109 98 - 110 mmol/L 10/27/2024 10:18 AM EDT [facility] CO2 21 21 - 33 mmol/L 10/27/2024 10:18 AM EDT [facility] Anion Gap 12 3 - 16 mmol/L 10/27/2024 10:18 AM EDT [facility] BUN 59(H) 7 - 25 mg/dL 10/27/2024 10:18 AM EDT [facility] Creatinine 2.54(H) 0.60 - 1.30 mg/dL 10/27/2024 10:18 AM EDT [facility] Glucose 111(H) 70 - 100 mg/dL 10/27/2024 10:18 AM EDT [facility] Calcium 9.1 8.6 - 10.3 mg/dL 10/27/2024 10:18 AM EDT [facility] Phosphorus 5.5(H) 2.1 - 4.7 mg/dL 10/27/2024 10:18 AM T [facility] Albumin 3.0(L) 3.5 - 5.7 g/dL 10/27/2024 10:18 AM [facility] Osmolality, Calculated 311(H) 278 - 305 mOsm/kg 10/27/2024 10:18 AM [facility] EGFR 32 10/27/2024 10:18 AM [facility] Comment:As of 2021, the estimated [...] 8:00 AM EDT 10/27/2024 9:58 AM EDT Kemra Sahni MD LAB BLOOD ORDERABLES Final Result [facility] [address] * (ABNORMAL) Hepatic Function Panel, STAT (10/27/2024 8:00 AM EDT) Total Bilirubin 1.3 0.0 - 1.5 mg/dL 10/27/2024 8:51 AM EDT [facility] Bilirubin, Direct 0.93(H) 0.00 - 0.40 mg/dL 10/27/2024 8:51 AM EDT [facility] AST 88(H) 13 - 39 U/L 10/27/2024 8:51 AM EDT [facility] ALT 149(H) 7 - 52 U/L 10/27/2024 8:51 AM EDT [facility] Alkaline Phosphatase 26(L) 36 - 125 U/L 10/27/2024 8:51 AM EDT [facility] Total Protein 4.0(L) 6.4 - 8.9 g/dL 10/27/2024 8:51 AM EDT [facility] Albumin 3.0(L) 3.5 - 5.7 g/dL 10/27/2024 8:51 AM EDT [facility] Bilirubin, Indirect 0.37 0.00 - 1.10 mg/dL 10/27/2024 8:51 AM EDT [facility] Plasma 10/27/2024 8:00 AM EDT 10/27/2024 8:20 AM EDT Harvey Domínguez III, MD LAB BLOOD ORDERABLE S Final Result [facility] [address] [facility]. [address] * (ABNORMAL) Lactic Acid, STAT (10/27/2024 8:00 AM EDT) Lactate 0.4(L) 0.5 - 2.2 mmol/L 10/27/2024 8:43 AM EDT [facility] Plasma 10/27/2024 8:00 AM EDT 10/27/2024 8:20 AM EDT us Harvey Domínguez III, MD LAB BLOOD ORDERABLE S Final Result Performing Organization Address City/State/[facility] Co de Phone Number [facility] [address] [place], [place] [address] * (ABNORMAL) Blood Gas, Arterial, STAT (10/27/2024 8:00 AM EDT) O2 Sat, Arterial 100 10/27/2024 8:23 AM EDT [facility] pH, Arterial 7.36 7.35 - 7.45 10/27/2024 8:23 AM EDT [facility] pCO2, Arterial 37 35 - 45 mm Hg 10/27/2024 8:23 AM EDT [facility] pO2, Arterial 245(H) 80 - 100 mm Hg 10/27/2024 8:23 AM EDT [facility] HCO3, Arterial 22 22 - 26 mmol/L 10/27/2024 8:23 AM EDT [facility] CO2 Content,Arteri al 22(L) 23 - 27 mmol/L 10/27/2024 8:23 AM EDT [facility] Base Excess, Arterial -4.2(L) -2.0 - 3.0 mmol/L 10/27/2024 8:23 AM EDT [facility] %HBO2, Arterial 96.5 95.0 - 98.0 % 10/27/2024 8:23 AM EDT [facility] Carboxyhemoglo bin, Arterial 2.2 % 10/27/2024 8:23 AM EDT [facility] Comment: CARBOXYHEMOGLOBIN (CO) REFERENCE RANGES: Non-Smokers: <2 % Smokers: <8 % TOXIC: >20 % Methemoglobin, Arterial 1.2 0.0 - 1.5 % 10/27/2024 8:23 AM EDT [facility] Reduced hemoglobin, Arterial 0.0 0.0 - 5.0 % 10/27/2024 8:23 AM EDT [facility] Blood, Arterial 10/27/2024 8 :00 AM EDT 10/27/2024 8:19 AM EDT Narrative [facility] - 10/27/2024 8:23 AM EDT Specimen is beyond 15 minutes from time of collection. Results may be compromised. Review results critically. Kemar Sahni MD LAB BLOOD ORDERABLES Final Result [facility] [address] [place] [address], [facility] * (ABNORMAL) TEG-Bypass/ECMO/Liver HN (Factor function, Platelet/Fibrin Clot Strength w/Clot Breakdown, Heparinase In All Channels) (10/27/2024 8:00 AM EDT) Citrated Kaolin Reaction Time (TEGECMOLIVER) 7.8 4.6 - 9.1 minutes 10/27/2024 9:39 AM EDT [facility] Citrated Kaolin W/Heparinase Reaction Time (TEGECMOLIVER) 8.0 4.3 - 8.3 minutes 10/27/2024 9:39 AM EDT [facility] Citrated Kaolin Maximum Amplitude (TEGECMOLIVER) 52.7 52.0 - 69.0 mm 10/27/2024 9:39 AM EDT [facility] Citrated Functional Fibrinogen W/Heparinase Maximum Amplitude(TEGEC MOLIVER) 19.0 15.0 - 34.0 mm 10/27/2024 9:39 AM EDT [facility] Citrated Rapid Teg W/Heparinase Maximum Amplitude (TEGECMOLIVER) 49.5(L) 53.0 - 69.0 mm 10/27/2024 9:39 AM EDT [facility] Citrated Kaolin w/Heparinase Percent Lysis (TEGECMOLIVER) 0.0 0.0 - 3.2 % 10/27/2024 9:39 AM EDT [facility] Whole Blood (Citrate) 10/27/2024 8:00 AM EDT 10/27/2024 8:19 AM EDT Result [facility] Kemar Sahni MD LAB BLOOD ORDERABLES Final Result Performing Organization Address City/[facility]/ZIP Co de Phone Number [facility] [address] [facility]. [address] * (ABNORMAL) Katie-Watkins virus VCA IgG Antibody (10/27/2024 8:00 AM EDT) EBV VCA IgG Positive( A) Negative 10/27/2024 11:30 AM EDT [facility] Comment:Presence of detectab le VCA IgG antibodies. 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 EBV IGG NUM 314.00(H) 0.00 - 17.99 U/mL 10/27/2024 11:30 AM EDT [facility] Serum 10/27/2024 8:00 AM EDT 10/27/2024 8:20 AM EDT Result [facility] Kemar Sahni MD LAB BLOOD ORDERABLES Final Result Performing Organization Address [facility] Co de Phone Number [facility] [address] [facility]. [address] * Hemoglobin A1c (10/27/2024 8:00 AM EDT) Hemoglobin A1C 5.0 4.0 - 5.6 % 10/27/2024 11:12 AM EDT [facility] Comment: Hemoglobin A1c Interpretation [...] AM EDT 10/27/2024 8:20 AM EDT Result [facility] Kemar Sahni MD LAB BLOOD ORDERABLES Final Result [facility] [address] [facility]. [address] * (ABNORMAL) POC Glucose Monitoring Device (10/27/2024 7:59 AM EDT) POC Glucose Monitoring Device 113(H) 70 - 100 mg/dL 10/27/2024 7:59 AM EDT [facility] Blood 10/27/2024 7:59 AM EDT 10/27/2024 7:59 AM EDT Harvey Domínguez III, MD POINT OF CARE TEST ORDERABLES Final Result Performing Organization Address City/[facility]/ZIP Co de Phone Number [facility] [address] [facility]. [address] * X-ray Abdomen AP view (10/27/2024 [...] Units (10/27/2024 6:16 AM EDT) Product Code Q0458B42 HCLL Unit Number [id number] HCLL Dispense Status Presumed Transfused_PT HCLL Blood Expiration Date HCLL Coding System PBTB985 HCLL Product Code Z3983W18 HCLL Unit Number [id number] HCLL Dispense Status Presumed Transfused_PT HCLL Blood Expiration Date HCLL Coding System QQVW301 HCLL Blood Bank Product John Pina MD BLOOD BANK PRODUCT ORDERABLES F inal Result HCLL * Prepare Platelets, leukoreduced, 1 Units (10/27/2024 6:16 AM EDT) Product Code N1225W46 HCLL Unit Number [id number] HCLL Dispense Status Presumed Transfused_PT HCLL Blood Expiration Date [id number] HCLL Coding System WQSJ262 HCLL Blood Bank Product Eber Quinones MD BLOOD BANK PRODUCT ORDER PAL Final Result Performing Organization Address [facility] de Phone Number HCLL * Prepare Cryoprecipitate, 1 Units (10/27/2024 6:16 AM EDT) Product Code C5831Z26 HCLL Unit Number [id number] HCLL Dispense Status Presumed Transfused_PT HCLL Blood Expiration Date HCLL Coding System MGIU003 HCLL Product Code X8029L56 HCLL Unit Number [id number] HCLL Dispense Status Presumed Transfused_PT HCLL Blood Expiration Date [id number] HCLL Coding System UGBU793 HCLL Blood Bank Product Eber Quinones MD BLOOD BANK PRODUCT ORDER PAL Final Result Performing Organization Address [facility] de Phone Number HCLL * Prepare Fresh Frozen Plasma, 10 Units (10/27/2024 6:16 AM EDT) Product Code T6634P88 HCLL Unit Number [id number] HCLL Dispense Status Presumed Transfused_PT HCLL Blood Expiration Date 262520398776 HCLL Coding System EJRF086 HCLL Product Code J2974E53 HCLL Unit Number [id number] HCLL Dispense Status Presumed Transfused_PT HCLL Blood Expiration Date 067698302273 HCLL Coding System NEHX190 HCLL Product Code D2491W30 HCLL Unit Number [id number] HCLL Dispense Status Presumed Transfused_PT HCLL Blood Expiration Date HCLL Coding System LUOU557 HCLL Product Code T7968K06 HCLL Unit Number [id number] HCLL Dispense Status Presumed Transfused_PT HCLL Blood Expiration Date 547934198903 HCLL Coding System IYKW934 HCLL Product Code X1593Q92 HCLL Unit Number [id number] HCLL Dispense Status Released from Crossmatch_RE HCLL Blood Expiration Date 073796040128 HCLL Coding System GZYS851 HCLL Product Code J4157Y46 HCLL Unit Number [id number] HCLL Dispense Status Released from Crossmatch_RE HCLL Blood Expiration Date HCLL Coding System JAZB174 HCLL Product Code J4149D84 HCLL Unit Number [id number] HCLL Dispense Status Presumed Transfused_PT HCLL Blood Expiration Date HCLL Coding System BHBV102 HCLL Product Code Z0674A34 HCLL Unit Number [id number] HCLL Dispense Status Presumed Transfused_PT HCLL Blood Expiration Date HCLL Coding System FJOC689 HCLL Product Code M4730S79 HCLL Unit Number [id number] HCLL Dispense Status Presumed Transfused_PT HCLL Blood Expiration Date HCLL Coding System KIDC445 HCLL Product Code R3817I44 HCLL Unit Number [id number] HCLL Dispense Status Presumed Transfused_PT HCLL Blood Expiration Date 147436232502 HCLL Coding System TPVI477 HCLL Blood Bank Product us Leandra Og MD BLOOD BANK PRODUCT ORD ERABLES Final Result HCLL * Prepare Platelets, leukoreduced, 1 Units (10/27/2024 6:16 AM EDT) Product Code E8299G57 HCLL Unit Number [id number] HCLL Dispense Status Presumed Transfused_PT HCLL Blood Expiration Date 554167838981 HCLL Coding System OAPB853 HCLL Blood Bank Product us Ben Blake MD BLOOD BANK PRODUCT ORDERABLES Final Result Performing Organization Address [facility] de Phone Number HCLL * Prepare Fresh Frozen Plasma (10/27/2024 6:15 AM EDT) Product Code S4965O08 HCLL Unit Number [id number] HCLL Dispense Status Presumed Transfused_PT HCLL Blood Expiration Date HCLL Coding System AHHQ140 HCLL Product Code J1097H12 HCLL Unit Number [id number] HCLL Dispense Status Released from Crossmatch_RE HCLL Blood Expiration Date HCLL Coding System SMPE218 HCLL Product Code D9402P61 HCLL Unit Number [id number] HCLL Dispense Status Presumed Transfused_PT HCLL Blood Expiration Date HCLL Coding System VDYO248 HCLL Product Code I0407W14 HCLL Unit Number [id number] HCLL Dispense Status Presumed Transfused_PT HCLL Blood Expiration Date HCLL Coding System KVBS259 HCLL Product Code Q7842S01 HCLL Unit Number [id number] HCLL Dispense Status Released from Crossmatch_RE HCLL Blood Expiration Date HCLL Coding System UBYS508 HCLL us Attending Provider Unknown BLOOD BANK PRODUCT OR DERABLES Final Result Performing Organization Address [facility] de Phone Number HCLL * Prepare RBC, leukoreduced (10/27/2024 6:15 AM EDT) Product Code M4456N64 HCLL Unit Number [id number] HCLL Dispense Status Presumed Transfused_PT HCLL Blood Expiration Date 484644109310 HCLL Coding System QEJP847 HCLL Product Code B4069O64 HCLL Unit Number [id number] HCLL Dispense Status Released from Crossmatch_RE HCLL Blood Expiration Date HCLL Coding System WVXT342 HCLL Product Code I3559C11 HCLL Unit Number [id number] HCLL Dispense Status Released from Crossmatch_RE HCLL Blood Expiration Date HCLL Coding System BHBL974 HCLL Product Code E2897P11 HCLL Unit Number [id number] HCLL Dispense Status Released from Crossmatch_RE HCLL Blood Expiration Date 934978733638 HCLL Coding System WKNX249 HCLL Product Code I7686N03 HCLL Unit Number [id number] HCLL Dispense Status Released from Crossmatch_RE HCLL Blood Expiration Date HCLL Coding System XCAU292 HCLL us Attending Provider Unknown BLOOD BANK PRODUCT OR DERABLES Final Result HCLL * Prepare RBC, leukoreduced, 10 Units (10/27/2024 6:15 AM EDT) Product Code Z2260N41 HCLL Unit Number [id number] HCLL Dispense Status Presumed Transfused_PT HCLL Blood Expiration Date HCLL Coding System RFWM643 HCLL Product Code O8487F29 HCLL Unit Number [id number] HCLL Dispense Status Presumed Transfused_PT HCLL Blood Expiration Date HCLL Coding System BVBQ595 HCLL Product Code E7283Z53 HCLL Unit Number [id number] HCLL Dispense Status Presumed Transfused_PT HCLL Blood Expiration Date HCLL Coding System ZGJK352 HCLL Product Code K9824W34 HCLL Unit Number [id number] HCLL Dispense Status Presumed Transfused_PT HCLL Blood Expiration Date HCLL Coding System NYTM907 HCLL Product Code Q5015B03 HCLL Unit Number [id number] HCLL Dispense Status Presumed Transfused_PT HCLL Blood Expiration Date HCLL Coding System JFRV755 HCLL Product Code S7991P81 HCLL Unit Number [id number] HCLL Dispense Status Presumed Transfused_PT HCLL Blood Expiration Date 224667854297 HCLL Coding System PLHS964 HCLL Product Code Q1483C23 HCLL Unit Number [id number] HCLL Dispense Status Presumed Transfused_PT HCLL Blood Expiration Date 662284535983 HCLL Coding System XSET900 HCLL Product Code Z1130U22 HCLL Unit Number [id number] HCLL Dispense Status Presumed Transfused_PT HCLL Blood Expiration Date 914094637452 HCLL Coding System HBQZ541 HCLL Product Code T2238F18 HCLL Unit Number [id number] HCLL Dispense Status Presumed Transfused_PT HCLL Blood Expiration Date 833770034690 HCLL Coding System OWED383 HCLL Product Code N2962G47 HCLL Unit Number [id number] HCLL Dispense Status Presumed Transfused_PT HCLL Blood Expiration Date 929933016702 HCLL Coding System IBIL827 HCLL Blood Bank Product us Leandra Og MD BLOOD BANK PRODUCT ORD ERABLES Final Result HCLL * Transfuse Platelets (10/27/2024 6:09 AM EDT) us Ben Blake MD NURSING TREATMENT ORDERABLES - BLOOD ADMIN Final Result * (ABNORMAL) Arterial Blood Gas Panel (10/27/2024 6:09 AM EDT) O2Sat (ABGP) 100 10/27/2024 6:17 AM EDT [facility] pH (ABGP) 7.30(L) 7.35 - 7.45 10/27/2024 6:17 AM EDT [facility] PCO2 (ABGP) 41 35 - 45 mm Hg 10/27/2024 6:17 AM EDT [facility] PO2 (ABGP) 192(H) 80 - 100 mm Hg 10/27/2024 6:17 AM EDT [facility] HCO3 (ABGP) 21(L) 22 - 26 mmol/L 10/27/2024 6:17 AM EDT [facility] CO2 Content (ABGP) 22(L) 23 - 27 mmol/L 10/27/2024 6:17 AM [facility] Base Excess (ABGP) -5.7(L) -2.0 - 3.0 mmol/L 10/27/2024 6:17 AM EDT [facility] Sodium (ABGP) 138 136 - 146 mEq/L 10/27/2024 6:17 AM [facility] Potassium (ABGP) 3.3(L) 3.5 - 5.0 mEq/L 10/27/2024 6:17 AM [facility] Comment:In the event of in-v itro hemolysis, potassium results may be falsely elevated. Always interpret lab results in conjunction with clinical findings. If hemolysis is suspected, a serum sample may be collected for repeat assessment of potassium. Calcium, Free (ABGP) 5.28 4.50 - 5.30 mg/dL 10/27/2024 6:17 AM [facility] Glucose (ABGP) 112(H) 70 - 100 mg/dL 10/27/2024 6:17 AM [facility] Comment:There is interferenc e with whole blood glucose results on this method when Hematocrit is <25% or >60%. HCT (ABGP) 20.0(L) 40.0 - 52.0 % 10/27/2024 6:17 AM [facility] HGB (ABGP) 6.5(L) 14.0 - 18.0 g/dL 10/27/2024 6:17 AM [facility] %HBO2 (ABGP) 96.8 95.0 - 98.0 % 10/27/2024 6:17 AM [facility] Carboxyhgb (ABGP) 2.1 % 6:17 AM [facility] Comment: CARBOXYHEMOGLOBIN (CO) REFERENCE RANGES: Non-Smokers: <2 % Smokers: <8 % TOXIC: >20 % Methemoglobin (ABGP) 1.0 0.0 - 1.5 % 10/27/2024 6:17 AM [facility] Reduced Hemoglobin (ABGP) 0.2 0.0 - 5.0 % 10/27/2024 6:17 AM EDT [facility] Lactic Acid (ABGP) 0.4(L) 0.5 - 1.6 mmol/L 10/27/2024 6:17 AM EDT [facility] Blood, Arterial 10/27/2024 6 :09 AM EDT 10/27/2024 6:14 AM EDT Ben Blake MD LAB BLOOD ORDERABLES Final Re sult [facility] [address] [facility]. [address] * Transfuse Fresh Frozen Plasma (10/27/2024 [...] Glucose Monitoring Device (10/27/2024 4:46 AM EDT) [facility] POC Glucose Monitoring Device 124(H) 70 - 100 mg/dL 10/27/2024 4:47 AM EDT [facility] Blood 10/27/2024 4:46 AM EDT 10/27/2024 4:47 AM EDT Harvey Domínguez III, MD POINT OF CARE TEST ORDERABLES Final Result [facility] [address] * Transfuse Platelets (10/27/2024 4:24 AM [...] O2Sat (ABGP) 100 10/27/2024 3:21 AM EDT [facility] pH (ABGP) 7.32(L) 7.35 - 7.45 10/27/2024 3:21 AM EDT [facility] PCO2 (ABGP) 38 35 - 45 mm Hg 10/27/2024 3:21 AM EDT [facility] PO2 (ABGP) 176(H) 80 - 100 mm Hg 10/27/2024 3:21 AM EDT [facility] HCO3 (ABGP) 20(L) 22 - 26 mmol/L 10/27/2024 3:21 AM EDT [facility] CO2 Content (ABGP) 21(L) 23 - 27 mmol/L 10/27/2024 3:21 AM EDT [facility] Base Excess (ABGP) -6.0(L) -2.0 - 3.0 mmol/L 10/27/2024 3:21 AM EDT [facility] Sodium (ABGP) 138 136 - 146 mEq/L 10/27/2024 3:21 AM EDT [facility] Potassium (ABGP) 3.0(L) 3.5 - 5.0 mEq/L 10/27/2024 3:21 AM EDT [facility] Comment:In the event of in-v itro hemolysis, potassium results may be falsely elevated. Always interpret lab results in conjunction with clinical findings. If hemolysis is suspected, a serum sample may be collected for repeat assessment of potassium. Calcium, Free (ABGP) 5.28 4.50 - 5.30 mg/dL 10/27/2024 3:21 AM EDT [facility] Glucose (ABGP) 108(H) 70 - 100 mg/dL 10/27/2024 3:21 AM EDT [facility] Comment:There is interferenc e with whole blood glucose results on this method when Hematocrit is <25% or >60%. HCT (ABGP) 22.0(L) 40.0 - 52.0 % 10/27/2024 3:21 AM EDT [facility] HGB (ABGP) 7.3(L) 14.0 - 18.0 g/dL 10/27/2024 3:21 AM EDT [facility] %HBO2 (ABGP) 97.3 95.0 - 98.0 % 10/27/2024 3:21 AM EDT [facility] Carboxyhgb (ABGP) 1.9 % 025 3:21 AM EDT [facility] Comment: CARBOXYHEMOGLOBIN (CO) REFERENCE RANGES: Non-Smokers: <2 % Smokers: <8 % TOXIC: >20 % Methemoglobin (ABGP) 0.8 0.0 - 1.5 % 10/27/2024 3:21 AM EDT [facility] Reduced Hemoglobin (ABGP) 0.0 0.0 - 5.0 % 10/27/2024 3:21 AM EDT [facility] Lactic Acid (ABGP) 0.3(L) 0.5 - 1.6 mmol/L 10/27/2024 3:21 AM EDT [facility] Blood, Arterial 10/27/2024 3 :07 AM EDT 10/27/2024 3:14 AM EDT us Ben Blake MD LAB BLOOD ORDERABLES Final Re sult Performing Organization Address City/State/[facility] Co de Phone Number [facility] [address] [address] * Surgical Pathology Exam (10/27/2024 2:38 AM EDT) Tissue LEFT KIDNEY STRUCTURE / Unknown 10/27/2024 2:38 AM EDT Narrative [facility] - 10/27/2024 12:00 AM EDT CASE: [id number] PATIENT: BLAIR GILBERT Clinical History: Transplant kidney with bile duct reconstruction Pre-Operative Diagnosis: Acute kidney injury superimposed on CKD Post-Operative Diagnosis: None Given Specimen(s) Submitted: Vrenon baseline renal biopsy ; B. right lobe liver biopsy; C. left lobe liver biopsy CPT Code(s): 53394 X 1; 29700 X 2; 14673 X 4 Additional Information: FINAL DIAGNOSIS: A. [...] parenchyma, which is entirely submitted in cassette [id number] A1. (NAA Mckeon/rr) B. Received in formalin, labeled with the patient's name Blair Gilbert and right lobe liver biopsy are two green-brown tissue cores measuring 1.8 and 2.0 cm in length, each with a diameter of 0.1 cm, which are entirely submitted between blue biopsy sponges in cassette [id number] B1-B2. (NAA Mckeon/ns) C. Received in formalin, [...] Pathologist signing this report is located at [facility] [place], [address] [place] [address], [id number], , CLIA ID: [id number] ADDENDUM: A. Kidney, allograft, baseline, wedge biopsy: [...] Pathologist signing this report is located at [facility] [place], [address] [place] [address], [facility]iatric hospital, , CLIA ID: [id number] us Kemar Sahni MD PATHOLOGY/CYTOLOGY ORDERABL ES Edited Result - Final Performing Organization Address [facility]/ZIP Co de Phone Number [facility] * Anaerobic culture (10/27/2024 2:15 AM EDT) Culture Result No Anaerobes Isolated in 5 Days [facility] Fluid SPECIMEN FROM KIDNEY / Unknown 10/27/2024 2:15 AM EDT 10/27/2024 4:24 AM EDT Narrative [facility]ALTH LAB - 10/31/2024 11:43 AM EDT 1) perfusate us Harvey Domínguez III, MD MICROBIOLOGY - GENE RAL ORDERABLES Final Result Performing Organization Address [facility]/ZIP Co de Phone Number [facility] [address] [place] [address] * Fungus culture (10/27/2024 2:15 AM EDT) Culture Result No Fungus Isolated At 4 Weeks [facility] Fluid SPECIMEN FROM KIDNEY / Unknown 10/27/2024 2:15 AM EDT 10/27/2024 4:24 AM EDT Narrative [facility]ALTH [facility] - 11/24/2024 7:52 AM EDT 1) perfusate us Harvey Domínguez III, MD MICROBIOLOGY - GENE RAL ORDERABLES Final Result Performing Organization Address [facility] Co de Phone Number [facility] [address] [facility]. [address] * Routine Culture plus Stain (10/27/2024 2:15 AM EDT) Gram Stain Result No Polymorphonuclear Leukocytes Seen [facility] Gram Stain Result No Organisms Seen; [facility] Culture Result No Growth After 3 Days [facility] Fluid SPECIMEN FROM KIDNEY / Unknown 10/27/2024 2:15 AM EDT 10/27/2024 4:24 AM EDT Narrative [facility] - 10/30/2024 9:26 AM EDT 1) perfusate us Harvey Domínguez III, MD MICROBIOLOGY - GENE RAL ORDERABLES Final Result Performing Organization Address [facility] de Phone Number [facility] [address] [facility]. [address] * Transfuse Platelets Transfusion Rate: Per dept routine (10/27/2024 1:52 AM EDT) us John Pina MD NURSING TREATMENT ORDERABLES - BLOOD ADMIN Final Result Performing Organization Address City/[facility] de Phone Number EXTERNAL * Transfuse Platelets Transfusion Rate: Per dept routine, 1 Units (10/27/2024 1:52 AM EDT) us John Pina MD NURSING TREATMENT ORDERABLES - BLOOD ADMIN Final Result Performing Organization Address [facility] de Phone Number EXTERNAL * (ABNORMAL) TEG-Standard Global Hemostasis (Rapid TEG with Heparin Effect, Contains a Baseline TEG) (10/27/2024 1:51 AM EDT) Citrated Kaolin Reaction Time (TEGHEPARINASE) 10.6(H) 4.6 - 9.1 minutes 10/27/2024 2:44 AM EDT [facility] Citrated Rapid Teg Maximum Amplitude (TEGHEPARINASE) 42.3(L) 52.0 - 70.0 mm 10/27/2024 2:44 AM EDT [facility] Citrated Functional Fibrinogen Maximum Amplitude (TEGHEPARINASE) 15.0 15.0 - 32.0 mm 10/27/2024 2:44 AM EDT [facility] Citrated Kaolin W/Heparinase Reaction Time (TEGHEPARINASE) 10.5(H) 4.3 - 8.3 minutes 10/27/2024 2:44 AM EDT [facility] Citrated Kaolin K-Time (TEGHEPARINASE) 2.9(A) 0.8 - 2.1 minutes 10/27/2024 2:44 AM EDT [facility] Citrated Kaolin Angle (TEGHEPARINASE) 60.4(A) 63.0 - 78.0 degrees 10/27/2024 2:44 AM EDT [facility] Citrated Kaolin Maximum Amplitude (TEGHEPARINASE) 42.9(L) 52.0 - 69.0 mm 10/27/2024 2:44 AM EDT [facility] Citrated Functional Fibrinogen- Fibrinogen Level (TEGHEPARINASE) 273.7(L) 278.0 - 581.0 mg/dL 10/27/2024 2:44 AM EDT [facility] Whole Blood (Citrate) 10/27/2024 1:51 AM EDT 10/27/2024 2:03 AM EDT us John Pina MD LAB BLOOD ORDERABLES Final Resu lt [facility] [address] [place] [address], [facility] * (ABNORMAL) POC Glucose Monitoring Device (10/27/2024 1:50 AM EDT) POC Glucose Monitoring Device 121(H) 70 - 100 mg/dL 10/27/2024 1:51 AM EDT [facility] Blood 10/27/2024 1:50 AM EDT 10/27/2024 1:51 AM EDT us Harvey Domínguez III, MD POINT OF CARE TEST ORDERABLES Final Result Performing Organization Address [facility] Co de Phone Number [facility] [address] [facility]. [address] * Transfuse Cryoprecipitate Transfusion Rate: Per dept routine (10/27/2024 1:25 AM EDT) us John Pina MD NURSING TREATMENT ORDERABLES - BLOOD ADMIN Final Result Performing Organization Address [facility] Co de Phone Number EXTERNAL * Transfuse Cryoprecipitate Transfusion Rate: Per dept routine, 1 Units (10/27/2024 1:25 AM EDT) us John Pina MD NURSING TREATMENT ORDERABLES - BLOOD ADMIN Final Result Performing Organization Address City/[facility] Co de Phone Number EXTERNAL * (ABNORMAL) POC Glucose Monitoring Device (10/27/2024 1:21 AM EDT) [facility] POC Glucose Monitoring Device 123(H) 70 - 100 mg/dL 10/27/2024 1:22 AM EDT [facility] Blood 10/27/2024 1:21 AM EDT 10/27/2024 1:21 AM EDT us Harvey Domínguez III, MD POINT OF CARE TEST ORDERABLES Final Result Performing Organization Address [facility] Co de Phone Number [facility] [address] [facility] [place] [address], [facility] * Transfuse Fresh Frozen Plasma Transfusion Rate: Per dept routine (10/27/2024 1:03 AM EDT) us John Pina MD NURSING TREATMENT ORDERABLES - BLOOD ADMIN Final Result Performing Organization Address City/[facility] Co de Phone Number EXTERNAL * Transfuse Fresh Frozen Plasma Transfusion Rate: Per dept routine, 1 Units (10/27/2024 1:03 AM EDT) John Pina MD NURSING TREATMENT ORDERABLES - BLOOD ADMIN Final Result EXTERNAL * Calcium Free, Serum (10/27/2024 12:13 AM EDT) Free Calcium, Ser 5.20 4.40 - 5.40 mg/dL 10/27/2024 12:37 AM EDT [facility] Comment:Free calcium levels vary inversely with pH by approximately 5% for each 0.1 unit of pH change. Assay results have been normalized to pH = 7.40. Serum 10/27/2024 12:1 3 AM EDT 10/27/2024 12:29 AM EDT Narrative [facility] - 10/27/2024 12:37 AM EDT [...] Resu lt Performing Organization Address [facility] Co de Phone Number [facility] [address] [place] [address], [facility] * (ABNORMAL) Blood Gas, Arterial, STAT (10/27/2024 12:13 AM EDT) O2 Sat, Arterial 100 10/27/2024 12:23 AM EDT [facility] FIO2 30 10/27/2024 12:23 AM EDT [facility] pH, Arterial 7.32(L) 7.35 - 7.45 10/27/2024 12:23 AM EDT [facility] pCO2, Arterial 37 35 - 45 mm Hg 10/27/2024 12:23 AM EDT [facility] pO2, Arterial 137(H) 80 - 100 mm Hg 10/27/2024 12:23 AM EDT [facility] HCO3, Arterial 20(L) 22 - 26 mmol/L 10/27/2024 12:23 AM EDT [facility] CO2 Content,Arteri al 20(L) 23 - 27 mmol/L 10/27/2024 12:23 AM EDT [facility] Base Excess, Arterial -6.4(L) -2.0 - 3.0 mmol/L 10/27/2024 12:23 AM EDT [facility] %HBO2, Arterial 96.2 95.0 - 98.0 % 10/27/2024 12:23 AM EDT [facility] Carboxyhemoglo bin, Arterial 1.9 % 10/27/2024 12:23 AM EDT [facility] Comment: CARBOXYHEMOGLOBIN (CO) REFERENCE RANGES: Non-Smokers: <2 % Smokers: <8 % TOXIC: >20 % Methemoglobin, Arterial 1.5 0.0 - 1.5 % 10/27/2024 12:23 AM EDT [facility] Reduced hemoglobin, Arterial 0.4 0.0 - 5.0 % 10/27/2024 12:23 AM EDT [facility] Blood, Arterial 10/27/2024 1 2:13 AM EDT 10/27/2024 12:18 AM EDT us John Pina MD LAB BLOOD ORDERABLES Final Resu lt [facility] [address] * (ABNORMAL) TEG-Bypass/ECMO/Liver HN (Factor function, Platelet/Fibrin Clot Strength w/Clot Breakdown, Heparinase In All Channels) (10/27/2024 12:13 AM EDT) [facility] Signature Citrated Kaolin Reaction Time (TEGECMOLIVER) 9.1 4.6 - 9.1 minutes 10/27/2024 1:43 AM EDT [facility] Citrated Kaolin W/Heparinase Reaction Time (TEGECMOLIVER) 9.7(H) 4.3 - 8.3 minutes 10/27/2024 1:43 AM EDT [facility] Citrated Kaolin Maximum Amplitude (TEGECMOLIVER) <40.0(L) 52.0 - 69.0 mm 10/27/2024 1:43 AM EDT [facility] Citrated Functional Fibrinogen W/Heparinase Maximum Amplitude(TEGEC MOLIVER) 11.9(L) 15.0 - 34.0 mm 10/27/2024 1:43 AM EDT [facility] Citrated Rapid Teg W/Heparinase Maximum Amplitude (TEGECMOLIVER) 31.6(L) 53.0 - 69.0 mm 10/27/2024 1:43 AM EDT [facility] Citrated Kaolin w/Heparinase Percent Lysis (TEGECMOLIVER) 0.0 0.0 - 3.2 % 10/27/2024 1:43 AM EDT [facility] Whole Blood (Citrate) 10/27/2024 12:13 AM EDT 10/27/2024 12:18 AM EDT Kemar Sahni MD LAB BLOOD ORDERABLES Final Result Performing Organization Address [facility] Co de Phone Number [facility] [address] [facility]. [address] * (ABNORMAL) Lactic Acid (10/27/2024 12:13 AM EDT) Lactate 0.2(L) 0.5 - 2.2 mmol/L 10/27/2024 12:59 AM EDT [facility] Plasma 10/27/2024 12:1 3 AM EDT 10/27/2024 12:31 AM EDT Kemar Sahni MD LAB BLOOD ORDERABLES Final Result [facility] [address] * Magnesium (10/27/2024 12:13 AM EDT) Magnesium 1.8 1.5 - 2.5 mg/dL 10/27/2024 12:52 AM EDT [facility] Plasma 10/27/2024 12:1 3 AM EDT 10/27/2024 12:29 AM EDT us Kemar Sahni MD LAB BLOOD ORDERABLES Final Result [facility] [address] * (ABNORMAL) Hepatic Function Panel (10/27/2024 12:13 AM EDT) Total Bilirubin 1.6(H) 0.0 - 1.5 mg/dL 10/27/2024 12:52 AM EDT [facility] Bilirubin, Direct 1.17(H) 0.00 - 0.40 mg/dL 10/27/2024 12:52 AM EDT [facility] AST 157(H) 13 - 39 U/L 10/27/2024 12:52 AM EDT [facility] ALT 261(H) 7 - 52 U/L 10/27/2024 12:52 AM EDT [facility] Alkaline Phosphatase 26(L) 36 - 125 U/L 10/27/2024 12:52 AM EDT [facility] Total Protein 3.8(L) 6.4 - 8.9 g/dL 10/27/2024 12:52 AM EDT [facility] Albumin 2.8(L) 3.5 - 5.7 g/dL 10/27/2024 12:52 AM EDT [facility] Bilirubin, Indirect 0.43 0.00 - 1.10 mg/dL 10/27/2024 12:52 AM EDT [facility] Plasma 10/27/2024 12:1 3 AM EDT 10/27/2024 12:29 AM EDT us Kemar Sahni MD LAB BLOOD ORDERABLES Final Result [facility] [address] * (ABNORMAL) Protime-INR (10/27/2024 12:13 AM EDT) Protime 18.6(H) 12.1 - 15.1 seconds 10/27/2024 12:43 AM EDT [facility] INR 1.5(H) 0.9 - 1.1 10/27/2024 12:43 AM EDT [facility] Comment: RECOMMENDED THERAPEUTIC RANGES USING INR : Stable oral anticoagulant therapy: 2.0 - 3.0 Mechanical prosthetic heart valve: 2.5 - 3.5 Recurrent acute myocardial infarction: 2.5 - 3.5 Plasma 10/27/2024 12:1 3 AM EDT 10/27/2024 12:29 AM EDT us Kemar Sahni MD LAB BLOOD ORDERABLES Final Result [facility] [address] * (ABNORMAL) CBC (10/27/2024 12:13 AM EDT) WBC 5.0 3.8 - 10.8 10E3/uL 10/27/2024 12:59 AM EDT [facility] RBC 2.70(L) 4.20 - 5.80 10E6/uL 10/27/2024 12:59 AM EDT [facility] Hemoglobin 8.5(L) 13.2 - 17.1 g/dL 10/27/2024 12:59 AM EDT [facility] Hematocrit 23.9(L) 38.5 - 50.0 % 10/27/2024 12:59 AM EDT [facility] MCV 88.5 80.0 - 100.0 fL 10/27/2024 12:59 AM EDT [facility] MCH 31.5 27.0 - 33.0 pg 10/27/2024 12:59 AM EDT [facility] MCHC 35.6 32.0 - 36.0 g/dL 10/27/2024 12:59 AM EDT [facility] RDW 20.6(H) 11.0 - 15.0 % 10/27/2024 12:59 AM EDT [facility] Platelets 35(L) 140 - 400 10E3/uL 10/27/2024 12:59 AM EDT [facility] Comment: CNV Specimen checked for clots. None detected. MPV 7.6 7.5 - 11.5 fL 10/27/2024 12:59 AM EDT [facility] Whole Blood 10/27/2024 12:1 3 AM EDT 10/27/2024 12:29 AM EDT Kemar Sahni MD LAB BLOOD ORDERABLES Final Result Performing Organization Address City/State/[facility] Co de Phone Number [facility] [address] [place] [id number] * (ABNORMAL) Renal Function Panel w/EGFR (10/27/2024 12:13 AM EDT) Sodium 141 133 - 146 mmol/L 10/27/2024 12:52 AM EDT [facility] Potassium 3.2(L) 3.5 - 5.3 mmol/L 10/27/2024 12:52 AM EDT [facility] Chloride 109 98 - 110 mmol/L 10/27/2024 12:52 AM EDT [facility] CO2 21 21 - 33 mmol/L 10/27/2024 12:52 AM EDT [facility] Anion Gap 11 3 - 16 mmol/L 10/27/2024 12:52 AM EDT [facility] BUN 64(H) 7 - 25 mg/dL 10/27/2024 12:52 AM EDT [facility] Creatinine 2.58(H) 0.60 - 1.30 mg/dL 10/27/2024 12:52 AM EDT [facility] Glucose 126(H) 70 - 100 mg/dL 10/27/2024 12:52 AM EDT [facility] Calcium 8.9 8.6 - 10.3 mg/dL 10/27/2024 12:52 AM EDT [facility] Phosphorus 5.3(H) 2.1 - 4.7 mg/dL 10/27/2024 12:52 AM EDT [facility] Albumin 2.8(L) 3.5 - 5.7 g/dL 10/27/2024 12:52 AM EDT [facility] Osmolality, Calculated 312(H) 278 - 305 mOsm/kg 10/27/2024 12:52 AM EDT [facility] EGFR 31 10/27/2024 12:52 AM EDT [facility] Comment:As of [...] BLOOD ORDERABLES Final Result Performing Organization Address City/[facility]/ZIP Co de Phone Number [facility] [address] [facility]. [address] * (ABNORMAL) POC Glucose Monitoring Device (10/27/2024 12:08 AM EDT) POC Glucose Monitoring Device 121(H) 70 - 100 mg/dL 10/27/2024 12:08 AM EDT [facility] Blood 10/27/2024 12:0 8 AM EDT 10/27/2024 12:08 AM EDT Harvey Domínguez III, MD POINT OF CARE TEST ORDERABLES Final Result [facility] [address] [facility]. [address] * (ABNORMAL) POC Glucose Monitoring Device (10/26/2024 11:15 PM EDT) POC Glucose Monitoring Device 120(H) 70 - 100 mg/dL 10/26/2024 11:15 PM EDT [facility] Blood 10/26/2024 11:1 5 PM EDT 10/26/2024 11:15 PM EDT Harvey Domínguez III, MD POINT OF CARE TEST ORDERABLES Final Result [facility] [address] [place] [address], [facility] * (ABNORMAL) TEG-Bypass/ECMO/Liver HN (Factor function, Platelet/Fibrin Clot Strength w/Clot Breakdown, Heparinase In All Channels) (10/26/2024 10:36 PM EDT) [facility] Citrated Kaolin Reaction Time (TEGECMOLIVER) 10.0(H) 4.6 - 9.1 minutes 10/26/2024 11:53 PM EDT [facility] Citrated Kaolin W/Heparinase Reaction Time (TEGECMOLIVER) 10.2(H) 4.3 - 8.3 minutes 10/26/2024 11:53 PM EDT [facility] Citrated Kaolin Maximum Amplitude (TEGECMOLIVER) <40.0(L) 52.0 - 69.0 mm 10/26/2024 11:53 PM EDT [facility] Citrated Functional Fibrinogen W/Heparinase Maximum Amplitude(TEGEC MOLIVER) 11.3(L) 15.0 - 34.0 mm 10/26/2024 11:53 PM EDT [facility] Citrated Rapid Teg W/Heparinase Maximum Amplitude (TEGECMOLIVER) 41.8(L) 53.0 - 69.0 mm 10/26/2024 11:53 PM EDT [facility] Citrated Kaolin w/Heparinase Percent Lysis (TEGECMOLIVER) 0.0 0.0 - 3.2 % 10/26/2024 11:53 PM EDT [facility] Whole Blood (Citrate) 10/26/2024 10:36 PM EDT 10/26/2024 10:43 PM EDT Kemar Sahni MD LAB BLOOD ORDERABLES Final Result Performing Organization Address City/[facility]/ZIP Co de Phone Number [facility] [address] [facility]. [address] * (ABNORMAL) POC Glucose Monitoring Device (10/26/2024 10:14 PM EDT) POC Glucose Monitoring Device 124(H) 70 - 100 mg/dL 10/26/2024 11:11 PM EDT [facility] Blood 10/26/2024 10:1 4 PM EDT 10/26/2024 11:11 PM EDT us Harvey Domínguez III, MD POINT OF CARE TEST ORDERABLES Final Result Performing Organization Address [facility] Co de Phone Number [facility] [address] [facility]. [address] * (ABNORMAL) POC Glucose Monitoring Device (10/26/2024 9:16 PM EDT) POC Glucose Monitoring Device 119(H) 70 - 100 mg/dL 10/26/2024 9:18 PM EDT [facility] Blood 10/26/2024 9:16 PM EDT 10/26/2024 9:18 PM EDT us Harvey Domínguez III, MD POINT OF CARE TEST ORDERABLES Final Result Performing Organization Address [facility] Co de Phone Number [facility] [address] [facility]. [address] * (ABNORMAL) POC Glucose Monitoring Device (10/26/2024 8:05 PM EDT) POC Glucose Monitoring Device 113(H) 70 - 100 mg/dL 10/26/2024 8:06 PM EDT [facility] Blood 10/26/2024 8:05 PM EDT 10/26/2024 8:06 PM EDT us Harvey Domínguez III, MD POINT OF CARE TEST ORDERABLES Final Result [facility] [address] * (ABNORMAL) POC Glucose Monitoring Device (10/26/2024 7:02 PM EDT) POC Glucose Monitoring Device 111(H) 70 - 100 mg/dL 10/26/2024 7:03 PM EDT [facility] Blood 10/26/2024 7:02 PM EDT 10/26/2024 7:03 PM EDT us Harvey Domínguez III, MD POINT OF CARE TEST ORDERABLES Final Result Performing Organization Address City/[facility]/ZIP Co de Phone Number [facility] [address] [facility]. [address] * Transfuse Cryoprecipitate Transfusion Rate: Per dept routine (10/26/2024 6:39 PM EDT) us John Pina MD NURSING TREATMENT ORDERABLES - BLOOD ADMIN Final Result Performing Organization Address City/[facility]/ZIP Co de Phone Number EXTERNAL * Transfuse Cryoprecipitate Transfusion Rate: Per dept routine, 1 Units (10/26/2024 6:39 PM EDT) us John Pina MD NURSING TREATMENT ORDERABLES - BLOOD ADMIN Final Result Performing Organization Address City/[facility]/ZIP Co de Phone Number EXTERNAL * (ABNORMAL) POC Glucose Monitoring Device (10/26/2024 6:33 PM EDT) POC Glucose Monitoring Device 110(H) 70 - 100 mg/dL 10/26/2024 6:34 PM EDT [facility] Blood 10/26/2024 6:33 PM EDT 10/26/2024 6:34 PM EDT us Harvey Domínguez III, MD POINT OF CARE TEST ORDERABLES Final Result Performing Organization Address City/[facility]/ZIP Co de Phone Number [facility] [address] * Transfuse Cryoprecipitate Transfusion Rate: Per dept routine (10/26/2024 6:22 PM EDT) John Pina MD NURSING TREATMENT ORDERABLES - BLOOD ADMIN Final Result Performing Organization Address [facility] de Phone Number EXTERNAL * Transfuse Cryoprecipitate Transfusion Rate: Per dept routine, 1 Units (10/26/2024 6:22 PM EDT) John Pina MD NURSING TREATMENT ORDERABLES - BLOOD ADMIN Final Result Performing Organization Address [facility] Co de Phone Number EXTERNAL * (ABNORMAL) POC Glucose Monitoring Device (10/26/2024 6:17 PM EDT) POC Glucose Monitoring Device 104(H) 70 - 100 mg/dL 10/26/2024 6:18 PM EDT [facility] Blood 10/26/2024 6:17 PM EDT 10/26/2024 6:18 PM EDT Harvey Domínguez III, MD POINT OF CARE TEST ORDERABLES Final Result Performing Organization Address [facility] de Phone Number [facility] [address] * (ABNORMAL) POC Glucose Monitoring Device (10/26/2024 4:58 PM EDT) POC Glucose Monitoring Device 115(H) 70 - 100 mg/dL 10/26/2024 4:59 PM EDT [facility] Blood 10/26/2024 4:58 PM EDT 10/26/2024 4:58 PM EDT Harvey Domínguez III, MD POINT OF CARE TEST ORDERABLES Final Result Performing Organization Address [facility] Co de Phone Number [facility] [address] * (ABNORMAL) Calcium Free, Serum (10/26/2024 4:42 PM EDT) Free Calcium, Ser 5.67(H) 4.40 - 5.40 mg/dL 10/26/2024 4:55 PM EDT [facility] Comment:Free calcium levels vary inversely with pH by approximately 5% for each 0.1 unit of pH change. Assay results have been normalized to pH = 7.40. Serum 10/26/2024 4:42 PM EDT 10/26/2024 4:47 PM EDT Narrative [facility] - 10/26/2024 4:55 PM EDT [...] Resu lt Performing Organization Address [facility]/ZIP Co de Phone Number [address] * Repeat Crossmatch (Recipient Sample) (10/26/2024 4:42 PM EDT) Repeat Cx - Recipient The request and specimen(s) for this test have been received and transported to the [facility] [place] [address] [place] [address]. The [facility] will report results directly to the client. 10/26/2024 4:49 PM EDT [facility] Whole Blood 10/26/2024 4:42 PM EDT 10/26/2024 4:49 PM EDT Narrative [facility] - 10/26/2024 4:49 PM EDT To be sent to [facility] for Donor UNOS#[id number] cross match with Blair Gilbert Sveta Judge MD LAB BLOOD ORDERABLES Final Resu lt Performing Organization Address City/[facility]/ZIP Co de Phone Number [address] * (ABNORMAL) Lactic Acid (10/26/2024 4:42 PM EDT) Lactate 0.3(L) 0.5 - 2.2 mmol/L 10/26/2024 5:19 PM EDT [facility] Plasma 10/26/2024 4:42 PM EDT 10/26/2024 4:47 PM EDT Kemar Sahni MD LAB BLOOD ORDERABLES Final Result Performing Organization Address City/[facility]/ZIP Co de Phone Number [facility] [address] [place] [address]. [address] * Magnesium (10/26/2024 4:42 PM EDT) Magnesium 2.0 1.5 - 2.5 mg/dL 10/26/2024 5:24 PM EDT [facility] Plasma 10/26/2024 4:42 PM EDT 10/26/2024 4:47 PM EDT Kemar Sahni MD LAB BLOOD ORDERABLES Final Result Performing Organization Address [facility] Co de Phone Number [facility] [address] [place] [address]. [address] * (ABNORMAL) Hepatic Function Panel (10/26/2024 4:42 PM EDT) Total Bilirubin 2.3(H) 0.0 - 1.5 mg/dL 10/26/2024 5:24 PM EDT [facility] Bilirubin, Direct 1.85(H) 0.00 - 0.40 mg/dL 10/26/2024 5:24 PM EDT [facility] AST 374(H) 13 - 39 U/L 10/26/2024 5:24 PM EDT [facility] ALT 458(H) 7 - 52 U/L 10/26/2024 5:24 PM EDT [facility] Alkaline Phosphatase 39 36 - 125 U/L 10/26/2024 5:24 PM EDT [facility] Total Protein 3.8(L) 6.4 - 8.9 g/dL 10/26/2024 5:24 PM EDT [facility] Albumin 3.0(L) 3.5 - 5.7 g/dL 10/26/2024 5:24 PM EDT [facility] Bilirubin, Indirect 0.45 0.00 - 1.10 mg/dL 10/26/2024 5:24 PM EDT [facility] Plasma 10/26/2024 4:42 PM EDT 10/26/2024 4:47 PM EDT Kemar Sahni MD LAB BLOOD ORDERABLES Final Result Performing Organization Address City/[facility] Co de Phone Number [facility] [address] * (ABNORMAL) Protime-INR (10/26/2024 4:42 PM EDT) Protime 20.3(H) 12.1 - 15.1 seconds 10/26/2024 5:12 PM EDT [facility] INR 1.7(H) 0.9 - 1.1 10/26/2024 5:12 PM EDT [facility] Comment: RECOMMENDED THERAPEUTIC RANGES USING INR : Stable oral anticoagulant therapy: 2.0 - 3.0 Mechanical prosthetic heart valve: 2.5 - 3.5 Recurrent acute myocardial infarction: 2.5 - 3.5 Plasma 10/26/2024 4:42 PM EDT 10/26/2024 4:47 PM EDT Kemar Sahni MD LAB BLOOD ORDERABLES Final Result [facility] [address] * (ABNORMAL) CBC (10/26/2024 4:42 PM EDT) WBC 10.0 3.8 - 10.8 10E3/uL 10/26/2024 5:00 PM EDT [facility] RBC 3.44(L) 4.20 - 5.80 10E6/uL 10/26/2024 5:00 PM EDT [facility] Hemoglobin 10.5(L) 13.2 - 17.1 g/dL 10/26/2024 5:00 PM EDT [facility] Hematocrit 30.2(L) 38.5 - 50.0 % 10/26/2024 5:00 PM EDT [facility] MCV 87.7 80.0 - 100.0 fL 10/26/2024 5:00 PM EDT [facility] MCH 30.6 27.0 - 33.0 pg 10/26/2024 5:00 PM EDT [facility] MCHC 34.8 32.0 - 36.0 g/dL 10/26/2024 5:00 PM EDT [facility] RDW 20.1(H) 11.0 - 15.0 % 10/26/2024 5:00 PM EDT [facility] Platelets 48(L) 140 - 400 10E3/uL 10/26/2024 5:00 PM EDT [facility] Comment:Specimen checked for clots. None detected. MPV 7.9 7.5 - 11.5 fL 10/26/2024 5:00 PM EDT [facility] Whole Blood 10/26/2024 4:42 PM EDT 10/26/2024 4:47 PM EDT us Kemar Sahni MD LAB BLOOD ORDERABLES Final Result [facility] [address] [address] * (ABNORMAL) Renal Function Panel w/EGFR (10/26/2024 4:42 PM EDT) Sodium 142 133 - 146 mmol/L 10/26/2024 5:24 PM EDT [facility] Potassium 3.3(L) 3.5 - 5.3 mmol/L 10/26/2024 5:24 PM EDT [facility] Chloride 109 98 - 110 mmol/L 10/26/2024 5:24 PM EDT [facility] CO2 23 21 - 33 mmol/L 10/26/2024 5:24 PM EDT [facility] Anion Gap 10 3 - 16 mmol/L 10/26/2024 5:24 PM EDT [facility] BUN 63(H) 7 - 25 mg/dL 10/26/2024 5:24 PM EDT [facility] Creatinine 2.85(H) 0.60 - 1.30 mg/dL 10/26/2024 5:24 PM EDT [facility] Glucose 127(H) 70 - 100 mg/dL 10/26/2024 5:24 PM EDT [facility] Calcium 8.9 8.6 - 10.3 mg/dL 10/26/2024 5:24 PM EDT [facility] Phosphorus 4.4 2.1 - 4.7 mg/dL 10/26/2024 5:24 PM EDT [facility] Albumin 3.0(L) 3.5 - 5.7 g/dL 10/26/2024 5:24 PM EDT [facility] Osmolality, Calculated 314(H) 278 - 305 mOsm/kg 10/26/2024 5:24 PM EDT [facility] EGFR 28 10/26/2024 5:24 PM EDT [facility] Comment:As [...] Sahni MD LAB BLOOD ORDERABLES Final Result [facility] [address] * (ABNORMAL) POC Glucose Monitoring Device (10/26/2024 3:54 PM EDT) POC Glucose Monitoring Device 126(H) 70 - 100 mg/dL 10/26/2024 3:55 PM EDT [facility] Blood 10/26/2024 3:54 PM EDT 10/26/2024 3:55 PM EDT Harvey Domínguez III, MD POINT OF CARE TEST ORDERABLES Final Result [facility] [address] * (ABNORMAL) POC Glucose Monitoring Device (10/26/2024 3:06 PM EDT) POC Glucose Monitoring Device 144(H) 70 - 100 mg/dL 10/26/2024 3:14 PM EDT [facility] Blood 10/26/2024 3:06 PM EDT 10/26/2024 3:13 PM EDT Harvey Domínguez III, MD POINT OF CARE TEST ORDERABLES Final Result [facility] [address] [facility]. [address] * (ABNORMAL) TEG-Bypass/ECMO/Liver HN (Factor function, Platelet/Fibrin Clot Strength w/Clot Breakdown, Heparinase In All Channels) (10/26/2024 3:03 PM EDT) Citrated Kaolin Reaction Time (TEGECMOLIVER) 8.2 4.6 - 9.1 minutes 10/26/2024 4:43 PM EDT [facility] Citrated Kaolin W/Heparinase Reaction Time (TEGECMOLIVER) 8.2 4.3 - 8.3 minutes 10/26/2024 4:43 PM EDT [facility] Citrated Kaolin Maximum Amplitude (TEGECMOLIVER) 41.7(L) 52.0 - 69.0 mm 10/26/2024 4:43 PM EDT [facility] Citrated Functional Fibrinogen W/Heparinase Maximum Amplitude(TEGEC MOLIVER) 11.4(L) 15.0 - 34.0 mm 10/26/2024 4:43 PM EDT [facility] Citrated Rapid Teg W/Heparinase Maximum Amplitude (TEGECMOLIVER) 38.6(L) 53.0 - 69.0 mm 10/26/2024 4:43 PM EDT [facility] Citrated Kaolin w/Heparinase Percent Lysis (TEGECMOLIVER) 0.0 0.0 - 3.2 % 10/26/2024 4:43 PM EDT [facility] Whole Blood (Citrate) 10/26/2024 3:03 PM EDT 10/26/2024 3:10 PM EDT Jani Mooney MD LAB BLOOD ORDERABLES Final Resul t Performing Organization Address City/[facility] Co de Phone Number [facility] [address] * ECG 12 lead (MUSE) (10/26/2024 2:19 PM EDT) 10/26/2024 2:19 PM EDT Narrative MUSE - 10/27/2024 10:09 AM EDT Ventricular Rate: 105 BPM Atrial Rate: 105 BPM P-R Interval: 128 ms QRS Duration: 94 ms QT: 474 ms QTc: 626 ms R [place]: -37 degrees T [place]: 35 degrees Diagnosis Line: Critical Test Result: Long QTc ^ SINUS TACHYCARDIA ^ LEFT AXIS DEVIATION, LEFT ANTERIOR HEMIBLOCK ^ PROLONGED QT ^ ABNORMAL ECG ^ ^ Confirmed by MD HA, [place] ([id number]) on 10/27/2024 10:09:25 AM Quinten Best MD ECG ORDERABLES Final Result Performing Organization Address City/[facility] Co de Phone Number MUSE * (ABNORMAL) POC Glucose Monitoring Device (10/26/2024 2:00 PM EDT) POC Glucose Monitoring Device 183(H) 70 - 100 mg/dL 10/26/2024 2:01 PM EDT [facility] Blood 10/26/2024 2:00 PM EDT 10/26/2024 2:01 PM EDT us Harvey Domínguez III, MD POINT OF CARE TEST ORDERABLES Final Result Performing Organization Address [facility] Co de Phone Number [facility] [address] * (ABNORMAL) POC Glucose Monitoring Device (10/26/2024 1:05 PM EDT) POC Glucose Monitoring Device 212(H) 70 - 100 mg/dL 10/26/2024 1:06 PM EDT [facility] Blood 10/26/2024 1:05 PM EDT 10/26/2024 1:06 PM EDT Harvey Domínguez III, MD POINT OF CARE TEST ORDERABLES Final Result Performing Organization Address [facility] Co de Phone Number [facility] [address] * Transfuse Cryoprecipitate Has consent been obtained? Yes; Transfusion Rate: Per dept routine (10/26/2024 12:25 PM EDT) us Shay Sifuentes MD NURSING TREATMENT ORDERABLES - BLOOD ADMIN Final Result Performing Organization Address City/[facility] Co de Phone Number EXTERNAL * Transfuse Cryoprecipitate Has consent been obtained? Yes; Transfusion Rate: Per dept routine, 1 Units (10/26/2024 12:25 PM EDT) us Shay Sifuentes MD NURSING TREATMENT ORDERABLES - BLOOD ADMIN Final Result Performing Organization Address City/[facility] Co de Phone Number EXTERNAL * (ABNORMAL) POC Glucose Monitoring Device (10/26/2024 12:06 PM EDT) POC Glucose Monitoring Device 226(H) 70 - 100 mg/dL 10/26/2024 12:07 PM EDT [facility] Blood 10/26/2024 12:0 6 PM EDT 10/26/2024 12:07 PM EDT Harvey Domínguez III, MD POINT OF CARE TEST ORDERABLES Final Result Performing Organization Address [facility] Co de Phone Number [facility] [address] [facility]. [address] * Transfuse Cryoprecipitate Transfusion Rate: Per dept routine (10/26/2024 12:01 PM EDT) John Pina MD NURSING TREATMENT ORDERABLES - BLOOD ADMIN Final Result Performing Organization Address City/[facility] Co de Phone Number EXTERNAL * Transfuse Cryoprecipitate Transfusion Rate: Per dept routine, 1 Units (10/26/2024 12:01 PM EDT) John Pina MD NURSING TREATMENT ORDERABLES - BLOOD ADMIN Final Result Performing Organization Address City/[facility] Co de Phone Number EXTERNAL * Lactic Acid (10/26/2024 10:48 AM EDT) Lactate 1.2 0.5 - 2.2 mmol/L 10/26/2024 11:27 AM EDT [facility] Plasma 10/26/2024 10:4 8 AM EDT 10/26/2024 10:53 AM EDT Kemar Sahni MD LAB BLOOD ORDERABLES Final Result Performing Organization Address City/[facility] Co de Phone Number [facility] [address] [facility]. [address] * Magnesium (10/26/2024 10:48 AM EDT) Magnesium 2.0 1.5 - 2.5 mg/dL 10/26/2024 11:26 AM EDT [facility] Plasma 10/26/2024 10:4 8 AM EDT 10/26/2024 10:53 AM EDT Kemar Sahni MD LAB BLOOD ORDERABLES Final Result [facility] [address] [place] [address], [facility] * (ABNORMAL) Hepatic Function Panel (10/26/2024 10:48 AM EDT) Total Bilirubin 5.9(H) 0.0 - 1.5 mg/dL 10/26/2024 11:26 AM EDT [facility] Bilirubin, Direct 4.74(H) 0.00 - 0.40 mg/dL 10/26/2024 11:26 AM EDT [facility] AST 872(H) 13 - 39 U/L 10/26/2024 11:26 AM EDT [facility] ALT 736(H) 7 - 52 U/L 10/26/2024 11:26 AM EDT [facility] Alkaline Phosphatase 56 36 - 125 U/L 10/26/2024 11:26 AM EDT [facility] Total Protein 3.5(L) 6.4 - 8.9 g/dL 10/26/2024 11:26 AM EDT [facility] Albumin 2.5(L) 3.5 - 5.7 g/dL 10/26/2024 11:26 AM EDT [facility] Bilirubin, Indirect 1.16(H) 0.00 - 1.10 mg/dL 10/26/2024 11:26 AM EDT [facility] Plasma 10/26/2024 10:4 8 AM EDT 10/26/2024 10:53 AM EDT Kemar Sahni MD LAB BLOOD ORDERABLES Final Result [facility] [address] [place] [address], [facility] * (ABNORMAL) Protime-INR (10/26/2024 10:48 AM EDT) Protime 23.0(H) 12.1 - 15.1 seconds 10/26/2024 11:26 AM EDT [facility] INR 2.0(H) 0.9 - 1.1 10/26/2024 11:26 AM EDT [facility] Comment: RECOMMENDED THERAPEUTIC RANGES USING INR : Stable oral anticoagulant therapy: 2.0 - 3.0 Mechanical prosthetic heart valve: 2.5 - 3.5 Recurrent acute myocardial infarction: 2.5 - 3.5 Plasma 10/26/2024 10:4 8 AM EDT 10/26/2024 10:53 AM EDT Kemar Sahni MD LAB BLOOD ORDERABLES Final Result [facility] [address] [place] [address], [facility] * (ABNORMAL) CBC (10/26/2024 10:48 AM EDT) WBC 17.3(H) 3.8 - 10.8 10E3/uL 10/26/2024 11:14 AM EDT [facility] RBC 4.22 4.20 - 5.80 10E6/uL 10/26/2024 11:14 AM EDT [facility] Hemoglobin 12.8(L) 13.2 - 17.1 g/dL 10/26/2024 11:14 AM EDT [facility] Hematocrit 37.2(L) 38.5 - 50.0 % 10/26/2024 11:14 AM EDT [facility] MCV 88.3 80.0 - 100.0 fL 10/26/2024 11:14 AM EDT [facility] MCH 30.4 27.0 - 33.0 pg 10/26/2024 11:14 AM EDT [facility] MCHC 34.4 32.0 - 36.0 g/dL 10/26/2024 11:14 AM EDT [facility] RDW 20.8(H) 11.0 - 15.0 % 10/26/2024 11:14 AM EDT [facility] Platelets 109(L) 140 - 400 10E3/uL 10/26/2024 11:14 AM EDT [facility] MPV 7.5 7.5 - 11.5 fL 10/26/2024 11:14 AM EDT [facility] Whole Blood 10/26/2024 10:4 8 AM EDT 10/26/2024 10:53 AM EDT Kemar Sahni MD LAB BLOOD ORDERABLES Final Result [facility] [address] [place] [address], [facility] * (ABNORMAL) Blood gas, arterial (10/26/2024 10:48 AM EDT) O2 Sat, Arterial 97 10/26/2024 10:54 AM EDT [facility] FIO2 35% 10/26/2024 10:54 AM EDT [facility] pH, Arterial 7.37 7.35 - 7.45 10/26/2024 10:54 AM EDT [facility] pCO2, Arterial 36 35 - 45 mm Hg 10/26/2024 10:54 AM EDT [facility] pO2, Arterial 91 80 - 100 mm Hg 10/26/2024 10:54 AM EDT [facility] HCO3, Arterial 22 22 - 26 mmol/L 10/26/2024 10:54 AM EDT [facility] CO2 Content,Arteri al 22(L) 23 - 27 mmol/L 10/26/2024 10:54 AM EDT [facility] Base Excess, Arterial -3.9(L) -2.0 - 3.0 mmol/L 10/26/2024 10:54 AM EDT [facility] %HBO2, Arterial 94.8(L) 95.0 - 98.0 % 10/26/2024 10:54 AM EDT [facility] Carboxyhemoglo bin, Arterial 1.9 % 10/26/2024 10:54 AM EDT [facility] Comment: CARBOXYHEMOGLOBIN (CO) REFERENCE RANGES: Non-Smokers: <2 % Smokers: <8 % TOXIC: >20 % Methemoglobin, Arterial 0.7 0.0 - 1.5 % 10/26/2024 10:54 AM EDT [facility] Reduced hemoglobin, Arterial 2.5 0.0 - 5.0 % 10/26/2024 10:54 AM EDT [facility] Blood, Arterial 10/26/2024 1 0:48 AM EDT 10/26/2024 10:52 AM EDT us Shay Sifuentes MD LAB BLOOD ORDERABLES Final Resu lt [facility] [address] [place] [address], [facility] * (ABNORMAL) Renal Function Panel w/EGFR (10/26/2024 10:48 AM EDT) Sodium 139 133 - 146 mmol/L 10/26/2024 11:26 AM EDT [facility] Potassium 2.9(LL) 3.5 - 5.3 mmol/L 10/26/2024 11:26 AM EDT [facility] Comment:K CRITICAL VALUE WAS PREVIOUSLY CALLED Chloride 107 98 - 110 mmol/L 10/26/2024 11:26 AM EDT [facility] CO2 22 21 - 33 mmol/L 10/26/2024 11:26 AM EDT [facility] Anion Gap 10 3 - 16 mmol/L 10/26/2024 11:26 AM EDT [facility] BUN 61(H) 7 - 25 mg/dL 10/26/2024 11:26 AM EDT [facility] Creatinine 2.78(H) 0.60 - 1.30 mg/dL 10/26/2024 11:26 AM EDT [facility] Glucose 253(H) 70 - 100 mg/dL 10/26/2024 11:26 AM EDT [facility] Calcium 8.8 8.6 - 10.3 mg/dL 10/26/2024 11:26 AM EDT [facility] Phosphorus 4.1 2.1 - 4.7 mg/dL 10/26/2024 11:26 AM EDT [facility] Albumin 2.5(L) 3.5 - 5.7 g/dL 10/26/2024 11:26 AM EDT [facility] Osmolality, Calculated 314(H) 278 - 305 mOsm/kg 10/26/2024 11:26 AM EDT [facility] EGFR 28 10/26/2024 11:26 AM EDT [facility] Comment:As of [...] Final Result Performing Organization Address [facility]/ZIP Co de Phone Number [facility] [address] [facility]. [address] * (ABNORMAL) POC Glucose Monitoring Device (10/26/2024 10:47 AM EDT) POC Glucose Monitoring Device 234(H) 70 - 100 mg/dL 10/26/2024 10:48 AM EDT [facility] Blood 10/26/2024 10:4 7 AM EDT 10/26/2024 10:48 AM EDT Harvey Domínguez III, MD POINT OF CARE TEST ORDERABLES Final Result Performing Organization Address [facility]/ZIP Co de Phone Number [facility] [address] [facility]. [address] * CARISA Rhythm Strip - Scan (10/26/2024 10:45 AM EDT) Scanning Uchhim SCAN DOCS - NO RESULTS Final Res ult * (ABNORMAL) POC Glucose Monitoring Device (10/26/2024 10:08 AM EDT) POC Glucose Monitoring Device 235(H) 70 - 100 mg/dL 10/26/2024 10:09 AM EDT [facility] Blood 10/26/2024 10:0 8 AM EDT 10/26/2024 10:09 AM EDT Harvey Domínguez III, MD POINT OF CARE TEST ORDERABLES Final Result Performing Organization Address [facility] Co de Phone Number [facility] [address] * (ABNORMAL) POC Glucose Monitoring Device (10/26/2024 8:57 AM EDT) POC Glucose Monitoring Device 232(H) 70 - 100 mg/dL 10/26/2024 8:59 AM EDT [facility] Blood 10/26/2024 8:57 AM EDT 10/26/2024 8:58 AM EDT Harvey Domínguez III, MD POINT OF CARE TEST ORDERABLES Final Result Performing Organization Address [facility] de Phone Number [facility] [address] * ECG 12 lead (MUSE) (10/26/2024 8:16 AM EDT) 10/26/2024 8:16 AM EDT Narrative MUSE - 10/27/2024 10:09 AM EDT Ventricular Rate: 112 BPM QRS Duration: 96 ms QT: 452 ms QTc: 616 ms R [place]: -41 degrees T [place]: 40 degrees Diagnosis Line: Critical Test Result: Long QTc ^ SINUS TACHYCARDIA OCCASIONAL PREMATURE VENTRICULAR COMPLEXES ^ LEFT AXIS DEVIATION, LEFT ANTERIOR HEMIBLOCK ^ PROLONGED QT ^ ABNORMAL ECG ^ ^ Confirmed by MD HA, [place] ([facility]) on 10/27/2024 10:09:18 AM Shay Sifuentes MD ECG ORDERABLES Final Result Performing Organization Address City/[facility] Co de Phone Number MUSE [...] - 100 mg/dL 10/26/2024 8:01 AM EDT [facility] Blood 10/26/2024 7:59 AM EDT 10/26/2024 8:00 AM EDT us Harvey Domínguez III, MD POINT OF CARE TEST ORDERABLES Final Result Performing Organization Address [facility]/ZIP Co de Phone Number [facility] [address] [address], [facility] * (ABNORMAL) TEG-Bypass/ECMO/Liver HN (Factor function, Platelet/Fibrin Clot Strength w/Clot Breakdown, Heparinase In All Channels) (10/26/2024 7:59 AM EDT) [facility] Citrated Kaolin Reaction Time (TEGECMOLIVER) 8.2 4.6 - 9.1 minutes 10/26/2024 10:36 AM EDT [facility] Citrated Kaolin W/Heparinase Reaction Time (TEGECMOLIVER) 8.1 4.3 - 8.3 minutes 10/26/2024 10:36 AM EDT [facility] Citrated Kaolin Maximum Amplitude (TEGECMOLIVER) 46.8(L) 52.0 - 69.0 mm 10/26/2024 10:36 AM EDT [facility] Citrated Functional Fibrinogen W/Heparinase Maximum Amplitude(TEGEC MOLIVER) 10.5(L) 15.0 - 34.0 mm 10/26/2024 10:36 AM EDT [facility] Citrated Rapid Teg W/Heparinase Maximum Amplitude (TEGECMOLIVER) 45.5(L) 53.0 - 69.0 mm 10/26/2024 10:36 AM EDT [facility] Citrated Kaolin w/Heparinase Percent Lysis (TEGECMOLIVER) 0.0 0.0 - 3.2 % 10/26/2024 10:36 AM EDT [facility] Whole Blood (Citrate) 10/26/2024 7:59 AM EDT 10/26/2024 8:05 AM EDT Shay Sifuentes MD LAB BLOOD ORDERABLES Final Resu lt [facility] [address] * (ABNORMAL) POC Glucose Monitoring Device (10/26/2024 6:12 AM EDT) POC Glucose Monitoring Device 196(H) 70 - 100 mg/dL 10/26/2024 6:13 AM EDT [facility] Blood 10/26/2024 6:12 AM EDT 10/26/2024 6:13 AM EDT Harvey Domínguez III, MD POINT OF CARE TEST ORDERABLES Final Result Performing Organization Address [facility] Co de Phone Number [facility] [address] [facility]. [address] * Lactic Acid (10/26/2024 6:10 AM EDT) Lactate 1.2 0.5 - 2.2 mmol/L 10/26/2024 6:39 AM EDT [facility] Plasma 10/26/2024 6:10 AM EDT 10/26/2024 6:19 AM EDT Sveta Judge MD LAB BLOOD ORDERABLES Final Resu lt Performing Organization Address [facility] Co de Phone Number [facility] [address] [facility] * (ABNORMAL) Fibrinogen (10/26/2024 6:10 AM EDT) Fibrinogen 160(L) 218 - 406 mg/dL 10/26/2024 6:41 AM EDT [facility] Plasma 10/26/2024 6:10 AM EDT 10/26/2024 6:26 AM EDT us Sveta Judge MD LAB BLOOD ORDERABLES Final Resu lt Performing Organization Address [facility]/ZIP Co de Phone Number [facility] [address] [facility] * (ABNORMAL) Protime-INR (10/26/2024 6:10 AM EDT) Protime 25.0(H) 12.1 - 15.1 seconds 10/26/2024 6:41 AM EDT [facility] INR 2.2(H) 0.9 - 1.1 10/26/2024 6:41 AM EDT [facility] Comment: RECOMMENDED THERAPEUTIC RANGES USING INR : Stable oral anticoagulant therapy: 2.0 - 3.0 Mechanical prosthetic heart valve: 2.5 - 3.5 Recurrent acute myocardial infarction: 2.5 - 3.5 Plasma 10/26/2024 6:10 AM EDT 10/26/2024 6:26 AM EDT us Sveta Judge MD LAB BLOOD ORDERABLES Final Resu lt [facility] [address] * (ABNORMAL) Blood gas, arterial (10/26/2024 6:10 AM EDT) O2 Sat, Arterial 98 10/26/2024 6:23 AM EDT [facility] FIO2 60 10/26/2024 6:23 AM EDT [facility] pH, Arterial 7.27(L) 7.35 - 7.45 10/26/2024 6:23 AM EDT [facility] pCO2, Arterial 47(H) 35 - 45 mm Hg 10/26/2024 6:23 AM EDT [facility] pO2, Arterial 127(H) 80 - 100 mm Hg 10/26/2024 6:23 AM EDT [facility] HCO3, Arterial 21(L) 22 - 26 mmol/L 10/26/2024 6:23 AM EDT [facility] CO2 Content,Arteri al 23 23 - 27 mmol/L 10/26/2024 6:23 AM EDT [facility] Base Excess, Arterial -5.4(L) -2.0 - 3.0 mmol/L 10/26/2024 6:23 AM EDT [facility] %HBO2, Arterial 94.6(L) 95.0 - 98.0 % 10/26/2024 6:23 AM EDT [facility] Carboxyhemoglo bin, Arterial 2.0 % 10/26/2024 6:23 AM EDT [facility] Comment: CARBOXYHEMOGLOBIN (CO) REFERENCE RANGES: Non-Smokers: <2 % Smokers: <8 % TOXIC: >20 % Methemoglobin, Arterial 1.6(H) 0.0 - 1.5 % 10/26/2024 6:23 AM EDT [facility] Reduced hemoglobin, Arterial 1.8 0.0 - 5.0 % 10/26/2024 6:23 AM EDT [facility] Blood, Arterial 10/26/2024 6 :10 AM EDT 10/26/2024 6:20 AM EDT Sveta Judge MD LAB BLOOD ORDERABLES Final Resu lt Performing Organization Address [facility] Co de Phone Number [facility] [address] [facility]. [address] * Magnesium (10/26/2024 6:10 AM EDT) Magnesium 1.5 1.5 - 2.5 mg/dL 10/26/2024 7:09 AM EDT [facility] Plasma 10/26/2024 6:10 AM EDT 10/26/2024 6:23 AM EDT Sveta Judge MD LAB BLOOD ORDERABLES Final Resu lt Performing Organization Address City/[facility] Co de Phone Number [facility] [address] [facility]. [address] * (ABNORMAL) Hepatic Function Panel (10/26/2024 6:10 AM EDT) Total Bilirubin 6.2(H) 0.0 - 1.5 mg/dL 10/26/2024 7:11 AM EDT [facility] Bilirubin, Direct 5.26(H) 0.00 - 0.40 mg/dL 10/26/2024 7:11 AM EDT [facility] AST 1,071(H) 13 - 39 U/L 10/26/2024 7:11 AM EDT [facility] ALT 805(H) 7 - 52 U/L 10/26/2024 7:11 AM EDT [facility] Alkaline Phosphatase 55 36 - 125 U/L 10/26/2024 7:11 AM EDT [facility] Total Protein <3.0(L) 6.4 - 8.9 g/dL 10/26/2024 7:11 AM EDT [facility] Albumin 1.9(L) 3.5 - 5.7 g/dL 10/26/2024 7:11 AM EDT [facility] Bilirubin, Indirect 0.94 0.00 - 1.10 mg/dL 10/26/2024 7:11 AM EDT [facility] Plasma 10/26/2024 6:10 AM EDT 10/26/2024 6:23 AM EDT us Sveta Judge MD LAB BLOOD ORDERABLES Final Resu lt [facility] [address] * (ABNORMAL) Renal Function Panel w/EGFR (10/26/2024 6:10 AM EDT) Sodium 141 133 - 146 mmol/L 10/26/2024 7:09 AM EDT [facility] Potassium 2.8(LL) 3.5 - 5.3 mmol/L 10/26/2024 7:09 AM EDT [facility] Comment:Critical value previ ously called. Chloride 106 98 - 110 mmol/L 10/26/2024 7:09 AM EDT [facility] [facility] CO2 25 21 - 33 mmol/L 10/26/2024 7:09 AM EDT [facility] Anion Gap 10 3 - 16 mmol/L 10/26/2024 7:09 AM EDT [facility] BUN 57(H) 7 - 25 mg/dL 10/26/2024 7:09 AM EDT [facility] Creatinine 2.70(H) 0.60 - 1.30 mg/dL 10/26/2024 7:09 AM EDT [facility] Glucose 210(H) 70 - 100 mg/dL 10/26/2024 7:09 AM EDT [facility] Calcium 8.7 8.6 - 10.3 mg/dL 10/26/2024 7:09 AM EDT [facility] Phosphorus 5.4(H) 2.1 - 4.7 mg/dL 10/26/2024 7:09 AM EDT [facility] Albumin 1.9(L) 3.5 - 5.7 g/dL 10/26/2024 7:11 AM EDT [facility] Osmolality, Calculated 314(H) 278 - 305 mOsm/kg 10/26/2024 7:09 AM EDT [facility] EGFR 29 10/26/2024 7:09 AM EDT [facility] Comment:As of [...] Final Resu lt [facility] [address] [place] [address], [facility] * (ABNORMAL) CBC (10/26/2024 6:10 AM EDT) WBC 14.8(H) 3.8 - 10.8 10E3/uL 10/26/2024 6:46 AM EDT [facility] RBC 4.04(L) 4.20 - 5.80 10E6/uL 10/26/2024 6:46 AM EDT [facility] Hemoglobin 12.7(L) 13.2 - 17.1 g/dL 10/26/2024 6:46 AM EDT [facility] Hematocrit 35.9(L) 38.5 - 50.0 % 10/26/2024 6:46 AM EDT [facility] MCV 89.0 80.0 - 100.0 fL 10/26/2024 6:46 AM EDT [facility] MCH 31.3 27.0 - 33.0 pg 10/26/2024 6:46 AM EDT [facility] MCHC 35.2 32.0 - 36.0 g/dL 10/26/2024 6:46 AM EDT [facility] RDW 19.7(H) 11.0 - 15.0 % 10/26/2024 6:46 AM EDT [facility] Platelets 107(L) 140 - 400 10E3/uL 10/26/2024 6:46 AM EDT [facility] MPV 7.4(L) 7.5 - 11.5 fL 10/26/2024 6:46 AM EDT [facility] Whole Blood 10/26/2024 6:10 AM EDT 10/26/2024 6:26 AM EDT us Svtea Judge MD LAB BLOOD ORDERABLES Final Resu lt [facility] [address] [address] * (ABNORMAL) POC INR (10/26/2024 5:16 AM EDT) Prothrombin Time INR, POC 2.4(H) 0.8 - 1.4 10/27/2024 6:51 AM EDT [facility] Comment: Test results may vary [...] POINT OF CARE TEST ORDERABLES Final Result [facility] [address] * POC Sample Type (10/26/2024 5:14 AM EDT) POC Sample Type Arterial 10/26/2024 5:31 AM EDT [facility] Blood, Arterial 10/26/2024 5 :14 AM EDT 10/26/2024 5:31 AM EDT us Harvey Domínguez III, MD POINT OF CARE TEST ORDERABLES Final Result Performing Organization Address City/[facility]/ZIP Co de Phone Number [facility] [address] [facility]. [address] * POC Anion Gap (10/26/2024 5:14 AM EDT) POC Anion Gap, Arterial 12 3 - 16 mmol/L 10/26/2024 5:31 AM EDT [facility] Blood, Arterial 10/26/2024 5 :14 AM EDT 10/26/2024 5:31 AM EDT us Harvey Domínguez III, MD POINT OF CARE TEST ORDERABLES Final Result [facility] [address] * POC Chloride (10/26/2024 5:14 AM EDT) POC Chloride 104 98 - 110 mmol/L 10/26/2024 5:31 AM EDT [facility] Blood, Arterial 10/26/2024 5 :14 AM EDT 10/26/2024 5:31 AM EDT Harvey Domínguez III, MD POINT OF CARE TEST ORDERABLES Final Result Performing Organization Address City/[facility]/ZIP Co de Phone Number [facility] [address] * (ABNORMAL) POC Hemoglobin (10/26/2024 5:14 AM EDT) POC Hemoglobin 9.5(L) 14.0 - 18.0 g/dL 10/26/2024 5:31 AM EDT [facility] Blood, Arterial 10/26/2024 5 :14 AM EDT 10/26/2024 5:31 AM EDT Harvey Domínguez III, MD POINT OF CARE TEST ORDERABLES Final Result Performing Organization Address [facility] Co de Phone Number [facility] [address] [facility]. [address] * (ABNORMAL) POC hematocrit (10/26/2024 5:14 AM EDT) POC Hematocrit 28.0(L) 40 - 52 % 10/26/2024 5:31 AM EDT [facility] Blood, Arterial 10/26/2024 5 :14 AM EDT 10/26/2024 5:31 AM EDT Harvey Domínguez III, MD POINT OF CARE TEST ORDERABLES Final Result Performing Organization Address City/[facility] Co de Phone Number [facility] [address] * POC Lactate (10/26/2024 5:14 AM EDT) POC Lactate 1.76 0.50 - 2.20 mmol/L 10/26/2024 5:31 AM EDT [facility] Blood, Arterial 10/26/2024 5 :14 AM EDT 10/26/2024 5:31 AM EDT Harvey Domínguez III, MD POINT OF CARE TEST ORDERABLES Final Result Performing Organization Address City/[facility] Co de Phone Number [facility] [address] * (ABNORMAL) POC Glucose (10/26/2024 5:14 AM EDT) POC Glucose, Arterial 183(H) 70 - 100 mg/dL 10/26/2024 5:31 AM EDT [facility] Blood, Arterial 10/26/2024 5 :14 AM EDT 10/26/2024 5:31 AM EDT Harvey Domínguez III, MD POINT OF CARE TEST ORDERABLES Final Result Performing Organization Address [facility] Co de Phone Number [facility] [address] [place] [address]. [address] * (ABNORMAL) POC Ionized Calcium (10/26/2024 5:14 AM EDT) POC Ionized Calcium 5.50(H) 4.50 - 5.30 mg/dL 10/26/2024 5:31 AM EDT [facility] Blood, Arterial 10/26/2024 5 :14 AM EDT 10/26/2024 5:31 AM EDT Harvey Domínguez III, MD POINT OF CARE TEST ORDERABLES Final Result Performing Organization Address City/[facility] Co de Phone Number [facility] [address] [facility]. [address] * (ABNORMAL) POC Potassium (10/26/2024 5:14 AM EDT) POC Potassium 2.8(LL) 3.5 - 5.3 mmol/L 10/26/2024 5:31 AM EDT [facility] Blood, Arterial 10/26/2024 5 :14 AM EDT 10/26/2024 5:31 AM EDT us Harvey Domínguez III, MD POINT OF CARE TEST ORDERABLES Final Result Performing Organization Address City/[facility]/ZIP Co de Phone Number [facility] [address] * POC Sodium (10/26/2024 5:14 AM EDT) POC Sodium 138 136 - 146 mmol/L 10/26/2024 5:31 AM EDT [facility] Blood, Arterial 10/26/2024 5 :14 AM EDT 10/26/2024 5:31 AM EDT us Harvey Domínguez III, MD POINT OF CARE TEST ORDERABLES Final Result Performing Organization Address [facility] Co de Phone Number [facility] [address] [place] [address]. [address] * POC TCO2 (10/26/2024 5:14 AM EDT) POC TCO2, Arterial 23 23 - 27 mmol/L 10/26/2024 5:31 AM EDT [facility] Blood, Arterial 10/26/2024 5 :14 AM EDT 10/26/2024 5:31 AM EDT us Harvey Domínguez III, MD POINT OF CARE TEST ORDERABLES Final Result Performing Organization Address City/[facility]/ZIP Co de Phone Number [address] [facility] * (ABNORMAL) POC O2 SAT (10/26/2024 5:14 AM EDT) POC O2 Saturation, Arterial 99(H) 95 - 98 % 10/26/2024 5:31 AM EDT [facility] Blood, Arterial 10/26/2024 5 :14 AM EDT 10/26/2024 5:31 AM EDT us Harvey Domínguez III, MD POINT OF CARE TEST ORDERABLES Final Result Performing Organization Address City/[facility]/ZIP Co de Phone Number [facility] [address] * (ABNORMAL) POC Base Excess (10/26/2024 5:14 AM EDT) POC Base Excess, Arterial -5(L) -2 - 3 mmol/L 10/26/2024 5:31 AM EDT [facility] Blood, Arterial 10/26/2024 5 :14 AM EDT 10/26/2024 5:31 AM EDT Harvey Domínguez III, MD POINT OF CARE TEST ORDERABLES Final Result Performing Organization Address [facility] Co de Phone Number [facility] [address] * POC HCO3 (10/26/2024 5:14 AM EDT) POC HCO3, Arterial 22 22 - 26 mmol/L 10/26/2024 5:31 AM EDT [facility] Blood, Arterial 10/26/2024 5 :14 AM EDT 10/26/2024 5:31 AM EDT us Harvey Domínguez III, MD POINT OF CARE TEST ORDERABLES Final Result Performing Organization Address City/[facility]/ZIP Co de Phone Number [facility] [address] [facility]. [address] * (ABNORMAL) POC PO2 (10/26/2024 5:14 AM EDT) POC pO2, Arterial 133(H) 80 - 100 mm Hg 10/26/2024 5:31 AM EDT [facility] Blood, Arterial 10/26/2024 5 :14 AM EDT 10/26/2024 5:31 AM EDT us Harvey Domínguez III, MD POINT OF CARE TEST ORDERABLES Final Result [facility] [address] * POC PCO2 (10/26/2024 5:14 AM EDT) POC pCO2, Arterial 45 35 - 45 mm Hg 10/26/2024 5:31 AM EDT [facility] Blood, Arterial 10/26/2024 5 :14 AM EDT 10/26/2024 5:31 AM EDT Harvey Domínguez III, MD POINT OF CARE TEST ORDERABLES Final Result Performing Organization Address [facility] Co de Phone Number [facility] [address] [facility]. [address] * (ABNORMAL) POC pH (10/26/2024 5:14 AM EDT) POC pH, Arterial 7.29(L) 7.35 - 7.45 10/26/2024 5:31 AM EDT [facility] Blood, Arterial 10/26/2024 5 :14 AM EDT 10/26/2024 5:31 AM EDT Harvey Domínguez III, MD POINT OF CARE TEST ORDERABLES Final Result Performing Organization Address [facility] Co de Phone Number [facility] [address] [facility]. [address] * Transfuse Cryoprecipitate (10/26/2024 4:37 AM EDT) Eber Quinones MD NURSING TREATMENT ORDERA BLES - BLOOD ADMIN Final Result * Transfuse Cryoprecipitate (10/26/2024 4:37 AM EDT) us Eber Quinones MD NURSING TREATMENT ORDERA BLES - BLOOD ADMIN Final Result * (ABNORMAL) POC INR (10/26/2024 4:27 AM EDT) Prothrombin Time INR, POC 2.3(H) 0.8 - 1.4 10/27/2024 6:51 AM EDT [facility] Comment: Test results may vary [...] POINT OF CARE TEST ORDERABLES Final Result [facility] [address] [facility] * POC Sample Type (10/26/2024 4:24 AM EDT) POC Sample Type Arterial 10/26/2024 5:09 AM EDT [facility] Blood, Arterial 10/26/2024 4 :24 AM EDT 10/26/2024 5:09 AM EDT Harvey Domínguez III, MD POINT OF CARE TEST ORDERABLES Final Result Performing Organization Address City/[facility] Co de Phone Number [facility] [address] * POC Anion Gap (10/26/2024 4:24 AM EDT) POC Anion Gap, Arterial 14 3 - 16 mmol/L 10/26/2024 5:09 AM EDT [facility] Blood, Arterial 10/26/2024 4 :24 AM EDT 10/26/2024 5:09 AM EDT Harvey Domínguez III, MD POINT OF CARE TEST ORDERABLES Final Result [facility] [address] * POC Chloride (10/26/2024 4:24 AM EDT) POC Chloride 103 98 - 110 mmol/L 10/26/2024 5:09 AM EDT [facility] Blood, Arterial 10/26/2024 4 :24 AM EDT 10/26/2024 5:09 AM EDT us Harvey Domínguez III, MD POINT OF CARE TEST ORDERABLES Final Result [facility] [address] [facility]. [address] * (ABNORMAL) POC Hemoglobin (10/26/2024 4:24 AM EDT) [facility] POC Hemoglobin 10.3(L) 14.0 - 18.0 g/dL 10/26/2024 5:09 AM EDT [facility] Blood, Arterial 10/26/2024 4 :24 AM EDT 10/26/2024 5:09 AM EDT us Harvey Domínguez III, MD POINT OF CARE TEST ORDERABLES Final Result Performing Organization Address [facility] Co de Phone Number [facility] [address] [place] [address]. [address] * (ABNORMAL) POC hematocrit (10/26/2024 4:24 AM EDT) [facility] POC Hematocrit 30.0(L) 40 - 52 % 10/26/2024 5:09 AM EDT [facility] Blood, Arterial 10/26/2024 4 :24 AM EDT 10/26/2024 5:09 AM EDT us Harvey Domínguez III, MD POINT OF CARE TEST ORDERABLES Final Result Performing Organization Address City/[facility] Co de Phone Number [facility] [address] [facility]. [address] * (ABNORMAL) POC Lactate (10/26/2024 4:24 AM EDT) POC Lactate 2.43(H) 0.50 - 2.20 mmol/L 10/26/2024 5:09 AM EDT [facility] Blood, Arterial 10/26/2024 4 :24 AM EDT 10/26/2024 5:09 AM EDT us Harvey Domínguez III, MD POINT OF CARE TEST ORDERABLES Final Result Performing Organization Address City/[facility] Co de Phone Number [facility] [address] [place] [address]. [address] * (ABNORMAL) POC Glucose (10/26/2024 4:24 AM EDT) Pathologist [facility] POC Glucose, Arterial 185(H) 70 - 100 mg/dL 10/26/2024 5:09 AM EDT [facility] Blood, Arterial 10/26/2024 4 :24 AM EDT 10/26/2024 5:09 AM EDT us Harvey Domínguez III, MD POINT OF CARE TEST ORDERABLES Final Result Performing Organization Address [facility] Co de Phone Number [facility] [address] [place] [address]. [address] * POC Ionized Calcium (10/26/2024 4:24 AM EDT) Pathologist [facility] POC Ionized Calcium 5.20 4.50 - 5.30 mg/dL 10/26/2024 5:09 AM EDT [facility] Blood, Arterial 10/26/2024 4 :24 AM EDT 10/26/2024 5:09 AM EDT us Harvey Domínguez III, MD POINT OF CARE TEST ORDERABLES Final Result Performing Organization Address City/[facility] Co de Phone Number [facility] [address] [place] [address]. [address] * (ABNORMAL) POC Potassium (10/26/2024 4:24 AM EDT) POC Potassium 2.8(LL) 3.5 - 5.3 mmol/L 10/26/2024 5:09 AM EDT [facility] Blood, Arterial 10/26/2024 4 :24 AM EDT 10/26/2024 5:09 AM EDT us Harvey Domínguez III, MD POINT OF CARE TEST ORDERABLES Final Result Performing Organization Address City/[facility]/ZIP Co de Phone Number [facility] [address] [place] [address]. [address] * POC Sodium (10/26/2024 4:24 AM EDT) POC Sodium 139 136 - 146 mmol/L 10/26/2024 5:09 AM EDT [facility] Blood, Arterial 10/26/2024 4 :24 AM EDT 10/26/2024 5:09 AM EDT Harvey Domínguez III, MD POINT OF CARE TEST ORDERABLES Final Result Performing Organization Address [facility] Co de Phone Number [facility] [address] [place] [address]. [address] * POC TCO2 (10/26/2024 4:24 AM EDT) POC TCO2, Arterial 23 23 - 27 mmol/L 10/26/2024 5:09 AM EDT [facility] Blood, Arterial 10/26/2024 4 :24 AM EDT 10/26/2024 5:09 AM EDT us Harvey Domínguez III, MD POINT OF CARE TEST ORDERABLES Final Result Performing Organization Address City/[facility] Co de Phone Number [facility] [address] [place] [address]. [address] * POC O2 SAT (10/26/2024 4:24 AM EDT) POC O2 Saturation, Arterial 96 95 - 98 % 10/26/2024 5:09 AM EDT [facility] Blood, Arterial 10/26/2024 4 :24 AM EDT 10/26/2024 5:09 AM EDT us Harvey Domínguez III, MD POINT OF CARE TEST ORDERABLES Final Result [facility] [address] * (ABNORMAL) POC Base Excess (10/26/2024 4:24 AM EDT) POC Base Excess, Arterial -5(L) -2 - 3 mmol/L 10/26/2024 5:09 AM EDT [facility] Blood, Arterial 10/26/2024 4 :24 AM EDT 10/26/2024 5:09 AM EDT us Harvey Domínguez III, MD POINT OF CARE TEST ORDERABLES Final Result Performing Organization Address [facility]/ZIP Co de Phone Number [facility] [address] [facility]. [address] * POC HCO3 (10/26/2024 4:24 AM EDT) POC HCO3, Arterial 22 22 - 26 mmol/L 10/26/2024 5:09 AM EDT [facility] Blood, Arterial 10/26/2024 4 :24 AM EDT 10/26/2024 5:09 AM EDT us Harvey Domínguez III, MD POINT OF CARE TEST ORDERABLES Final Result [facility] [address] * POC PO2 (10/26/2024 4:24 AM EDT) POC pO2, Arterial 93 80 - 100 mm Hg 10/26/2024 5:09 AM EDT [facility] Blood, Arterial 10/26/2024 4 :24 AM EDT 10/26/2024 5:09 AM EDT Harvey Domínguez III, MD POINT OF CARE TEST ORDERABLES Final Result Performing Organization Address [facility] Co de Phone Number [facility] [address] * POC PCO2 (10/26/2024 4:24 AM EDT) POC pCO2, Arterial 44 35 - 45 mm Hg 10/26/2024 5:09 AM EDT [facility] Blood, Arterial 10/26/2024 4 :24 AM EDT 10/26/2024 5:09 AM EDT Harvey Domínguez III, MD POINT OF CARE TEST ORDERABLES Final Result Performing Organization Address [facility] Co de Phone Number [facility] [address] * (ABNORMAL) POC pH (10/26/2024 4:24 AM EDT) POC pH, Arterial 7.30(L) 7.35 - 7.45 10/26/2024 5:09 AM EDT [facility] Blood, Arterial 10/26/2024 4 :24 AM EDT 10/26/2024 5:09 AM EDT Result [facility] Harvey Domínguez III, MD POINT OF CARE TEST ORDERABLES Final Result Performing Organization Address [facility] Co de Phone Number [facility] [address] * Transfuse Platelets (10/26/2024 4:14 AM EDT) Result [facility] Ben Blake MD NURSING TREATMENT ORDERABLES - [...] TEST ORDERABLES Final Result Performing Organization Address [facility] Co de Phone Number [facility] [address] [place] [address]. [address] * POC Sample Type (10/26/2024 3:31 AM EDT) Pathologist [facility] POC Sample Type Arterial 10/26/2024 4:11 AM EDT [facility] Blood, Arterial 10/26/2024 3 :31 AM EDT 10/26/2024 4:11 AM EDT us Harvey Domínguez III, MD POINT OF CARE TEST ORDERABLES Final Result Performing Organization Address City/State/[facility] Co de Phone Number [facility] [address] [place] [address]. [address] * POC Anion Gap (10/26/2024 3:31 AM EDT) POC Anion Gap, Arterial 15 3 - 16 mmol/L 10/26/2024 4:11 AM EDT [facility] Blood, Arterial 10/26/2024 3 :31 AM EDT 10/26/2024 4:11 AM EDT us Harvey Domínguez III, MD POINT OF CARE TEST ORDERABLES Final Result Performing Organization Address [facility]/ZIP Co de Phone Number [facility] [address] * POC Chloride (10/26/2024 3:31 AM EDT) POC Chloride 105 98 - 110 mmol/L 10/26/2024 4:11 AM EDT [facility] Blood, Arterial 10/26/2024 3 :31 AM EDT 10/26/2024 4:11 AM EDT us Harvey Domínguez III, MD POINT OF CARE TEST ORDERABLES Final Result Performing Organization Address [facility] Co de Phone Number [facility] [address] [facility]. [address] * (ABNORMAL) POC Hemoglobin (10/26/2024 3:31 AM EDT) POC Hemoglobin 9.7(L) 14.0 - 18.0 g/dL 10/26/2024 4:11 AM EDT [facility] Blood, Arterial 10/26/2024 3 :31 AM EDT 10/26/2024 4:11 AM EDT us Harvey Domínguez III, MD POINT OF CARE TEST ORDERABLES Final Result Performing Organization Address [facility] Co de Phone Number [facility] [address] [facility]. [address] * (ABNORMAL) POC hematocrit (10/26/2024 3:31 AM EDT) POC Hematocrit 29.0(L) 40 - 52 % 10/26/2024 4:11 AM EDT [facility] Blood, Arterial 10/26/2024 3 :31 AM EDT 10/26/2024 4:11 AM EDT us Harvey Domínguez III, MD POINT OF CARE TEST ORDERABLES Final Result [facility] [address] [facility]. [address] * (ABNORMAL) POC Lactate (10/26/2024 3:31 AM EDT) POC Lactate 3.54(H) 0.50 - 2.20 mmol/L 10/26/2024 4:11 AM EDT [facility] Blood, Arterial 10/26/2024 3 :31 AM EDT 10/26/2024 4:11 AM EDT us Harvey Domínguez III, MD POINT OF CARE TEST ORDERABLES Final Result Performing Organization Address [facility] Co de Phone Number [facility] [address] [facility] * (ABNORMAL) POC Glucose (10/26/2024 3:31 AM EDT) POC Glucose, Arterial 153(H) 70 - 100 mg/dL 10/26/2024 4:11 AM EDT [facility] Blood, Arterial 10/26/2024 3 :31 AM EDT 10/26/2024 4:11 AM EDT us Harvey Domínguez III, MD POINT OF CARE TEST ORDERABLES Final Result Performing Organization Address [facility] Co de Phone Number [facility] [address] [facility] * POC Ionized Calcium (10/26/2024 3:31 AM EDT) POC Ionized Calcium 5.10 4.50 - 5.30 mg/dL 10/26/2024 4:11 AM EDT [facility] Blood, Arterial 10/26/2024 3 :31 AM EDT 10/26/2024 4:11 AM EDT us Harvey Domínguez III, MD POINT OF CARE TEST ORDERABLES Final Result [facility] [address] * (ABNORMAL) POC Potassium (10/26/2024 3:31 AM EDT) POC Potassium 2.6(LL) 3.5 - 5.3 mmol/L 10/26/2024 4:11 AM EDT [facility] Blood, Arterial 10/26/2024 3 :31 AM EDT 10/26/2024 4:11 AM EDT us Harvey Domínguez III, MD POINT OF CARE TEST ORDERABLES Final Result Performing Organization Address [facility] Co de Phone Number [facility] [address] * POC Sodium (10/26/2024 3:31 AM EDT) POC Sodium 138 136 - 146 mmol/L 10/26/2024 4:11 AM EDT [facility] Blood, Arterial 10/26/2024 3 :31 AM EDT 10/26/2024 4:11 AM EDT us Harvey Domínguez III, MD POINT OF CARE TEST ORDERABLES Final Result Performing Organization Address [facility] Co de Phone Number [facility] [address] [facility]. [address] * (ABNORMAL) POC TCO2 (10/26/2024 3:31 AM EDT) POC TCO2, Arterial 19(L) 23 - 27 mmol/L 10/26/2024 4:11 AM EDT [facility] Blood, Arterial 10/26/2024 3 :31 AM EDT 10/26/2024 4:11 AM EDT us Harvey Domínguez III, MD POINT OF CARE TEST ORDERABLES Final Result [facility] [address] * POC O2 SAT (10/26/2024 3:31 AM EDT) POC O2 Saturation, Arterial 97 95 - 98 % 10/26/2024 4:11 AM EDT [facility] Blood, Arterial 10/26/2024 3 :31 AM EDT 10/26/2024 4:11 AM EDT us Harvey Domínguez III, MD POINT OF CARE TEST ORDERABLES Final Result [facility] [address] * (ABNORMAL) POC Base Excess (10/26/2024 3:31 AM EDT) POC Base Excess, Arterial -9(L) -2 - 3 mmol/L 10/26/2024 4:11 AM EDT [facility] Blood, Arterial 10/26/2024 3 :31 AM EDT 10/26/2024 4:11 AM EDT us Harvey Domínguez III, MD POINT OF CARE TEST ORDERABLES Final Result Performing Organization Address City/[facility]/ZIP Co de Phone Number COMMUNITY [facility] [address] * (ABNORMAL) POC HCO3 (10/26/2024 3:31 AM EDT) POC HCO3, Arterial 18(L) 22 - 26 mmol/L 10/26/2024 4:11 AM EDT [facility] Blood, Arterial 10/26/2024 3 :31 AM EDT 10/26/2024 4:11 AM EDT us Harvey Domínguez III, MD POINT OF CARE TEST ORDERABLES Final Result [facility] [address] * (ABNORMAL) POC PO2 (10/26/2024 3:31 AM EDT) POC pO2, Arterial 104(H) 80 - 100 mm Hg 10/26/2024 4:11 AM EDT [facility] Blood, Arterial 10/26/2024 3 :31 AM EDT 10/26/2024 4:11 AM EDT us Harvey Domínguez III, MD POINT OF CARE TEST ORDERABLES Final Result [facility] [address] * POC PCO2 (10/26/2024 3:31 AM EDT) POC pCO2, Arterial 42 35 - 45 mm Hg 10/26/2024 4:11 AM EDT [facility] Blood, Arterial 10/26/2024 3 :31 AM EDT 10/26/2024 4:11 AM EDT us Harvey Domínguez III, MD POINT OF CARE TEST ORDERABLES Final Result Performing Organization Address City/[facility]/ZIP Co de Phone Number [facility] [address] * (ABNORMAL) POC pH (10/26/2024 3:31 AM EDT) POC pH, Arterial 7.24(L) 7.35 - 7.45 10/26/2024 4:11 AM EDT [facility] Blood, Arterial 10/26/2024 3 :31 AM EDT 10/26/2024 4:11 AM EDT us Harvey Domínguez III, MD POINT OF CARE TEST ORDERABLES Final Result Performing Organization Address City/[facility]/ZIP Co de Phone Number [facility] [address] [facility]. [address] * (ABNORMAL) TEG-Global With Lysis (Baseline TEG with LY30, Will NOT Show Heparin Effect) (53:31 AM EDT) Pathologist [facility] Citrated Kaolin Reaction Time (TEGLYSIS) 6.8 4.6 - 9.1 minutes 10/26/2024 5:02 AM EDT [facility] Citrated Rapid Teg Maximum Amplitude (TEGLYSIS) <40.0(L) 52.0 - 70.0 mm 10/26/2024 5:02 AM EDT [facility] Citrated Functional Fibrinogen Maximum Amplitude (TEGLYSIS) <4.0(L) 15.0 - 32.0 mm 10/26/2024 5:02 AM EDT [facility] Citrated Kaolin Percent Lysis (TEGLYSIS) 1.4 0.0 - 2.6 % 10/26/2024 5:02 AM EDT [facility] Whole Blood (Citrate) 10/26/2024 3:31 AM EDT 10/26/2024 3:40 AM EDT us Eber Quinones MD LAB BLOOD ORDERABLES Fin al Result [facility] [address] [address] * (ABNORMAL) CBC (10/26/2024 3:31 AM EDT) Pathologist [facility] WBC 9.5 3.8 - 10.8 10E3/uL 10/26/2024 3:48 AM EDT [facility] RBC 3.68(L) 4.20 - 5.80 10E6/uL 10/26/2024 3:48 AM EDT [facility] Hemoglobin 11.5(L) 13.2 - 17.1 g/dL 10/26/2024 3:48 AM EDT [facility] Hematocrit 33.0(L) 38.5 - 50.0 % 10/26/2024 3:48 AM EDT [facility] MCV 89.6 80.0 - 100.0 fL 10/26/2024 3:48 AM EDT [facility] MCH 31.1 27.0 - 33.0 pg 10/26/2024 3:48 AM EDT [facility] MCHC 34.8 32.0 - 36.0 g/dL 10/26/2024 3:48 AM EDT [facility] RDW 19.3(H) 11.0 - 15.0 % 10/26/2024 3:48 AM EDT [facility] Platelets 67(L) 140 - 400 10E3/uL 10/26/2024 3:48 AM EDT [facility] MPV 7.9 7.5 - 11.5 fL 10/26/2024 3:48 AM EDT [facility] Whole Blood 10/26/2024 3:31 AM EDT 10/26/2024 3:40 AM EDT Eber Quinones MD LAB BLOOD ORDERABLES Fin al Result Performing Organization Address [facility] de Phone Number [facility] [address] * (ABNORMAL) Protime-INR (10/26/2024 3:31 AM EDT) Protime 27.0(H) 12.1 - 15.1 seconds 10/26/2024 3:51 AM EDT [facility] INR 2.4(H) 0.9 - 1.1 10/26/2024 3:51 AM EDT [facility] Comment: RECOMMENDED THERAPEUTIC RANGES USING INR : Stable oral anticoagulant therapy: 2.0 - 3.0 Mechanical prosthetic heart valve: 2.5 - 3.5 Recurrent acute myocardial infarction: 2.5 - 3.5 Plasma 10/26/2024 3:31 AM EDT 10/26/2024 3:40 AM EDT Eber Quinones MD LAB BLOOD ORDERABLES Fin al Result Performing Organization Address [facility] Co de Phone Number [facility] [address] * (ABNORMAL) Fibrinogen (10/26/2024 3:31 AM EDT) Fibrinogen 104(L) 218 - 406 mg/dL 10/26/2024 3:56 AM EDT [facility] Plasma 10/26/2024 3:31 AM EDT 10/26/2024 3:40 AM EDT Eber Quinones MD LAB BLOOD ORDERABLES Fin al Result [facility] [address] [place] [address], [facility] * [...] Transfuse RBC (10/26/2024 1:45 AM EDT) Result [facility] Ben Blake MD NURSING TREATMENT ORDERABLES - BLOOD ADMIN Final Result * Transfuse RBC (10/26/2024 1:45 AM EDT) Result [facility] Ben Blake MD NURSING TREATMENT ORDERABLES - BLOOD ADMIN Final Result * (ABNORMAL) POC INR (10/26/2024 1:43 AM EDT) Prothrombin Time INR, POC 1.9(H) 0.8 - 1.4 10/27/2024 6:51 AM EDT [facility] Comment: Test results may vary using different testing platforms. Serial result monitoring should be performed using the same methodology. RECOMMENDED THERAPEUTIC RANGES USING INR : Stable oral anticoagulant therapy: 2.0 - 3.0 Mechanical prosthetic heart valve: 2.5 - 3.5 Recurrent acute myocardial infarction: 2.5 - 3.5 Blood 10/26/2024 1:43 AM EDT 10/27/2024 6:51 AM EDT Result [facility] Harvey Domínguez III, MD POINT OF CARE TEST ORDERABLES Final Result [facility] [address] [address], [facility] * Transfuse Fresh Frozen Plasma (10/26/2024 1:41 AM EDT) Result [facility] Ben Blake MD NURSING TREATMENT ORDERABLES - BLOOD ADMIN Final Result * Transfuse RBC (10/26/2024 1:40 AM EDT) Result [facility] Ben Blake MD NURSING TREATMENT ORDERABLES - BLOOD ADMIN Final Result * POC Sample Type (10/26/2024 1:40 AM EDT) POC Sample Type Arterial 10/26/2024 2:32 AM EDT [facility] Blood, Arterial 10/26/2024 1 :40 AM EDT 10/26/2024 2:32 AM EDT Result [facility] us Harvey Domínguez III, MD POINT OF CARE TEST ORDERABLES Final Result Performing Organization Address [facility] Co de Phone Number [facility] [address] * POC Anion Gap (10/26/2024 1:40 AM EDT) POC Anion Gap, Arterial 13 3 - 16 mmol/L 10/26/2024 2:32 AM EDT [facility] Blood, Arterial 10/26/2024 1 :40 AM EDT 10/26/2024 2:32 AM EDT us Harvey Domínguez III, MD POINT OF CARE TEST ORDERABLES Final Result Performing Organization Address [facility] Co de Phone Number [facility] [address] [facility]. [address] * POC Chloride (10/26/2024 1:40 AM EDT) POC Chloride 104 98 - 110 mmol/L 10/26/2024 2:32 AM EDT [facility] Blood, Arterial 10/26/2024 1 :40 AM EDT 10/26/2024 2:32 AM EDT us Harvey Domínguez III, MD POINT OF CARE TEST ORDERABLES Final Result Performing Organization Address [facility] Co de Phone Number [facility] [address] [facility]. [address] * (ABNORMAL) POC Hemoglobin (10/26/2024 1:40 AM EDT) POC Hemoglobin 7.4(L) 14.0 - 18.0 g/dL 10/26/2024 2:32 AM EDT [facility] Blood, Arterial 10/26/2024 1 :40 AM EDT 10/26/2024 2:32 AM EDT us Harvey Domínguez III, MD POINT OF CARE TEST ORDERABLES Final Result [facility] [address] * (ABNORMAL) POC hematocrit (10/26/2024 1:40 AM EDT) POC Hematocrit 22.0(L) 40 - 52 % 10/26/2024 2:32 AM EDT [facility] Blood, Arterial 10/26/2024 1 :40 AM EDT 10/26/2024 2:32 AM EDT us Harvey Domínguez III, MD POINT OF CARE TEST ORDERABLES Final Result Performing Organization Address [facility] de Phone Number [facility] [address] [facility]. [address] * (ABNORMAL) POC Lactate (10/26/2024 1:40 AM EDT) POC Lactate 2.30(H) 0.50 - 2.20 mmol/L 10/26/2024 2:32 AM EDT [facility] Blood, Arterial 10/26/2024 1 :40 AM EDT 10/26/2024 2:32 AM EDT us Harvey Domínguez III, MD POINT OF CARE TEST ORDERABLES Final Result Performing Organization Address [facility] de Phone Number [facility] [address] [facility]. [address] * (ABNORMAL) POC Glucose (10/26/2024 1:40 AM EDT) POC Glucose, Arterial 116(H) 70 - 100 mg/dL 10/26/2024 2:32 AM EDT [facility] Blood, Arterial 10/26/2024 1 :40 AM EDT 10/26/2024 2:32 AM EDT us Harvey Domínguez III, MD POINT OF CARE TEST ORDERABLES Final Result Performing Organization Address [facility] Co de Phone Number [facility] [address] [facility]. [address] * (ABNORMAL) POC Ionized Calcium (10/26/2024 1:40 AM EDT) POC Ionized Calcium 4.10(L) 4.50 - 5.30 mg/dL 10/26/2024 2:32 AM EDT [facility] Blood, Arterial 10/26/2024 1 :40 AM EDT 10/26/2024 2:32 AM EDT us Harvey Domínguez III, MD POINT OF CARE TEST ORDERABLES Final Result Performing Organization Address [facility] Co de Phone Number [facility] [address] [facility]. [address] * (ABNORMAL) POC Potassium (10/26/2024 1:40 AM EDT) POC Potassium 2.6(LL) 3.5 - 5.3 mmol/L 10/26/2024 2:32 AM EDT [facility] Blood, Arterial 10/26/2024 1 :40 AM EDT 10/26/2024 2:32 AM EDT us Harvey Domínguez III, MD POINT OF CARE TEST ORDERABLES Final Result Performing Organization Address [facility] Co de Phone Number [facility] [address] [facility]. [address] * (ABNORMAL) POC Sodium (10/26/2024 1:40 AM EDT) POC Sodium 135(L) 136 - 146 mmol/L 10/26/2024 2:32 AM EDT [facility] Blood, Arterial 10/26/2024 1 :40 AM EDT 10/26/2024 2:32 AM EDT us Harvey Domínguez III, MD POINT OF CARE TEST ORDERABLES Final Result [facility] [address] * (ABNORMAL) POC TCO2 (10/26/2024 1:40 AM EDT) POC TCO2, Arterial 19(L) 23 - 27 mmol/L 10/26/2024 2:32 AM EDT [facility] Blood, Arterial 10/26/2024 1 :40 AM EDT 10/26/2024 2:32 AM EDT us Harvey Domínguez III, MD POINT OF CARE TEST ORDERABLES Final Result [facility] [address] * (ABNORMAL) POC O2 SAT (10/26/2024 1:40 AM EDT) POC O2 Saturation, Arterial 99(H) 95 - 98 % 10/26/2024 2:32 AM EDT [facility] Blood, Arterial 10/26/2024 1 :40 AM EDT 10/26/2024 2:32 AM EDT us Harvey Domínguez III, MD POINT OF CARE TEST ORDERABLES Final Result Performing Organization Address City/[facility]/ZIP Co de Phone Number [facility] [address] * (ABNORMAL) POC Base Excess (10/26/2024 1:40 AM EDT) POC Base Excess, Arterial -7(L) -2 - 3 mmol/L 10/26/2024 2:32 AM EDT [facility] Blood, Arterial 10/26/2024 1 :40 AM EDT 10/26/2024 2:32 AM EDT us Harvey Domínguez III, MD POINT OF CARE TEST ORDERABLES Final Result [facility] [address] * (ABNORMAL) POC HCO3 (10/26/2024 1:40 AM EDT) POC HCO3, Arterial 18(L) 22 - 26 mmol/L 10/26/2024 2:32 AM EDT [facility] Blood, Arterial 10/26/2024 1 :40 AM EDT 10/26/2024 2:32 AM EDT Harvey Domínguez III, MD POINT OF CARE TEST ORDERABLES Final Result [facility] [address] * (ABNORMAL) POC PO2 (10/26/2024 1:40 AM EDT) POC pO2, Arterial 145(H) 80 - 100 mm Hg 10/26/2024 2:32 AM EDT [facility] Blood, Arterial 10/26/2024 1 :40 AM EDT 10/26/2024 2:32 AM EDT us Harvey Domínguez III, MD POINT OF CARE TEST ORDERABLES Final Result Performing Organization Address City/[facility]/ZIP Co de Phone Number [facility] [address] * (ABNORMAL) POC PCO2 (10/26/2024 1:40 AM EDT) POC pCO2, Arterial 33(L) 35 - 45 mm Hg 10/26/2024 2:32 AM EDT [facility] Blood, Arterial 10/26/2024 1 :40 AM EDT 10/26/2024 2:32 AM EDT us Harvey Domínguez III, MD POINT OF CARE TEST ORDERABLES Final Result [facility] [address] * POC pH (10/26/2024 1:40 AM EDT) POC pH, Arterial 7.35 7.35 - 7.45 10/26/2024 2:32 AM EDT [facility] Blood, Arterial 10/26/2024 1 :40 AM EDT 10/26/2024 2:32 AM EDT us Harvey Domínguez III, MD POINT OF CARE TEST ORDERABLES Final Result Performing Organization Address [facility] Co de Phone Number [facility] [address] * Transfuse Fresh Frozen Plasma (10/26/2024 1:20 AM EDT) us Ben Blake MD NURSING TREATMENT ORDERABLES - BLOOD ADMIN Final Result * Transfuse RBC (10/26/2024 12:56 AM EDT) us Ben Blake MD NURSING TREATMENT ORDERABLES - BLOOD ADMIN Final Result * (ABNORMAL) POC INR (10/26/2024 12:41 AM EDT) Prothrombin Time INR, POC 2.0(H) 0.8 - 1.4 10/27/2024 6:51 AM EDT [facility] Comment: Test results may vary [...] TEST ORDERABLES Final Result Performing Organization Address City/[facility]/ZIP Co de Phone Number [facility] [address] * POC Sample Type (10/26/2024 12:39 AM EDT) POC Sample Type Arterial 10/26/2024 1:38 AM EDT [facility] Blood, Arterial 10/26/2024 1 2:39 AM EDT 10/26/2024 1:38 AM EDT us Harvey Domínguez III, MD POINT OF CARE TEST ORDERABLES Final Result [facility] [address] [place] [address]. [address] * POC Anion Gap (10/26/2024 12:39 AM EDT) Pathologist [facility] POC Anion Gap, Arterial 13 3 - 16 mmol/L 10/26/2024 1:38 AM EDT [facility] Blood, Arterial 10/26/2024 1 2:39 AM EDT 10/26/2024 1:38 AM EDT Harvey Domínguez III, MD POINT OF CARE TEST ORDERABLES Final Result Performing Organization Address City/[facility] Co de Phone Number [facility] [address] [facility]. [address] * POC Chloride (10/26/2024 12:39 AM EDT) [facility] POC Chloride 103 98 - 110 mmol/L 10/26/2024 1:38 AM EDT [facility] Blood, Arterial 10/26/2024 1 2:39 AM EDT 10/26/2024 1:38 AM EDT us Harvey Domínguez III, MD POINT OF CARE TEST ORDERABLES Final Result Performing Organization Address City/[facility] Co de Phone Number [facility] [address] * (ABNORMAL) POC Hemoglobin (10/26/2024 12:39 AM EDT) Pathologist [facility] POC Hemoglobin 7.9(L) 14.0 - 18.0 g/dL 10/26/2024 1:38 AM EDT [facility] Blood, Arterial 10/26/2024 1 2:39 AM EDT 10/26/2024 1:38 AM EDT us Harvey Domínguez III, MD POINT OF CARE TEST ORDERABLES Final Result Performing Organization Address City/[facility]/ZIP Co de Phone Number [facility] [address] [facility]. [address] * (ABNORMAL) POC hematocrit (10/26/2024 12:39 AM EDT) POC Hematocrit 23.0(L) 40 - 52 % 10/26/2024 1:38 AM EDT [facility] Blood, Arterial 10/26/2024 1 2:39 AM EDT 10/26/2024 1:38 AM EDT us Harvey Domínguez III, MD POINT OF CARE TEST ORDERABLES Final Result Performing Organization Address [facility] Co de Phone Number [facility] [address] [facility]. [address] * POC Lactate (10/26/2024 12:39 AM EDT) POC Lactate 1.39 0.50 - 2.20 mmol/L 10/26/2024 1:38 AM EDT [facility] Blood, Arterial 10/26/2024 1 2:39 AM EDT 10/26/2024 1:38 AM EDT us Harvey Domínguez III, MD POINT OF CARE TEST ORDERABLES Final Result Performing Organization Address City/[facility] Co de Phone Number [facility] [address] [facility]. [address] * (ABNORMAL) POC Glucose (10/26/2024 12:39 AM EDT) POC Glucose, Arterial 116(H) 70 - 100 mg/dL 10/26/2024 1:38 AM EDT [facility] Blood, Arterial 10/26/2024 1 2:39 AM EDT 10/26/2024 1:38 AM EDT us Harvey Domínguez III, MD POINT OF CARE TEST ORDERABLES Final Result [facility] [address] [place] [address]. [address] * (ABNORMAL) POC Ionized Calcium (10/26/2024 12:39 AM EDT) POC Ionized Calcium 4.30(L) 4.50 - 5.30 mg/dL 10/26/2024 1:38 AM EDT [facility] Blood, Arterial 10/26/2024 1 2:39 AM EDT 10/26/2024 1:38 AM EDT us Harvey Domínguez III, MD POINT OF CARE TEST ORDERABLES Final Result Performing Organization Address [facility] Co de Phone Number [facility] [address] * (ABNORMAL) POC Potassium (10/26/2024 12:39 AM EDT) POC Potassium 2.4(LL) 3.5 - 5.3 mmol/L 10/26/2024 1:38 AM EDT [facility] Blood, Arterial 10/26/2024 1 2:39 AM EDT 10/26/2024 1:38 AM EDT us Harvey Domínguez III, MD POINT OF CARE TEST ORDERABLES Final Result Performing Organization Address City/[facility] Co de Phone Number [facility] [address] [facility]. [address] * POC Sodium (10/26/2024 12:39 AM EDT) POC Sodium 136 136 - 146 mmol/L 10/26/2024 1:38 AM EDT [facility] Blood, Arterial 10/26/2024 1 2:39 AM EDT 10/26/2024 1:38 AM EDT us Harvey Domínguez III, MD POINT OF CARE TEST ORDERABLES Final Result Performing Organization Address City/[facility]/ZIP Co de Phone Number [facility] [address] * (ABNORMAL) POC TCO2 (10/26/2024 12:39 AM EDT) POC TCO2, Arterial 21(L) 23 - 27 mmol/L 10/26/2024 1:38 AM EDT [facility] Blood, Arterial 10/26/2024 1 2:39 AM EDT 10/26/2024 1:38 AM EDT us Harvey Domínguez III, MD POINT OF CARE TEST ORDERABLES Final Result Performing Organization Address [facility] Co de Phone Number [facility] [address] [facility] * POC O2 SAT (10/26/2024 12:39 AM EDT) POC O2 Saturation, Arterial 98 95 - 98 % 10/26/2024 1:38 AM EDT [facility] Blood, Arterial 10/26/2024 1 2:39 AM EDT 10/26/2024 1:38 AM EDT us Harvey Domínguez III, MD POINT OF CARE TEST ORDERABLES Final Result Performing Organization Address City/[facility] Co de Phone Number [facility] [address] [facility]. [address] * (ABNORMAL) POC Base Excess (10/26/2024 12:39 AM EDT) POC Base Excess, Arterial -7(L) -2 - 3 mmol/L 10/26/2024 1:38 AM EDT [facility] Blood, Arterial 10/26/2024 1 2:39 AM EDT 10/26/2024 1:38 AM EDT us Harvey Domínguez III, MD POINT OF CARE TEST ORDERABLES Final Result Performing Organization Address City/[facility] Co de Phone Number [facility] [address] [facility]. [address] * (ABNORMAL) POC HCO3 (10/26/2024 12:39 AM EDT) POC HCO3, Arterial 20(L) 22 - 26 mmol/L 10/26/2024 1:38 AM EDT [facility] Blood, Arterial 10/26/2024 1 2:39 AM EDT 10/26/2024 1:38 AM EDT us Harvey Domínguez III, MD POINT OF CARE TEST ORDERABLES Final Result Performing Organization Address [facility] Co de Phone Number [facility] [address] * (ABNORMAL) POC PO2 (10/26/2024 12:39 AM EDT) POC pO2, Arterial 117(H) 80 - 100 mm Hg 10/26/2024 1:38 AM EDT [facility] Blood, Arterial 10/26/2024 1 2:39 AM EDT 10/26/2024 1:38 AM EDT us Harvey Domínguez III, MD POINT OF CARE TEST ORDERABLES Final Result Performing Organization Address City/[facility] Co de Phone Number [facility] [address] [facility]. [address] * (ABNORMAL) POC PCO2 (10/26/2024 12:39 AM EDT) POC pCO2, Arterial 46(H) 35 - 45 mm Hg 10/26/2024 1:38 AM EDT [facility] Blood, Arterial 10/26/2024 1 2:39 AM EDT 10/26/2024 1:38 AM EDT us Harvey Domínguez III, MD POINT OF CARE TEST ORDERABLES Final Result Performing Organization Address [facility] Co de Phone Number [facility] [address] [facility]. [address] * (ABNORMAL) POC pH (10/26/2024 12:39 AM EDT) POC pH, Arterial 7.24(L) 7.35 - 7.45 10/26/2024 1:38 AM EDT [facility] Blood, Arterial 10/26/2024 1 2:39 AM EDT 10/26/2024 1:38 AM EDT us Harvey Domínguez III, MD POINT OF CARE TEST ORDERABLES Final Result Performing Organization Address [facility] de Phone Number [facility] [address] [facility]. [address] * Transfuse Platelets (10/26/2024 12:37 AM EDT) Result [facility] Ben Blake MD NURSING TREATMENT ORDERABLES - [...] AM EDT) Gram Stain Result Cytospin Results: [facility] Gram Stain Result Polymorphonuclear Leukocytes Seen; [facility] Gram Stain Result No Organisms Seen; [facility] Culture Result No Growth After 3 Days [facility] Surgical Swab ABDOMEN / Unknown 12:03 AM EDT Comment:2.) Ascites Anaerobhic culture Fungus culture Routine culture plus stain Narrative [facility] - 10/28/2024 9:38 PM EDT 2.) Ascites Anaerobhic culture Fungus culture Routine culture plus stain 2.) Ascites Harvey Domínguez III, MD MICROBIOLOGY - GENE RAL ORDERABLES Final Result [facility] [address] [id number], [facility] * Surgical Pathology Exam (10/26/2024 12:00 AM EDT) 10/26/2024 10/27/2024 Narrative [facility] - 10/26/2024 12:00 AM EDT CASE: [id number] PATIENT: BLAIR GILBERT Clinical History: Liver - kidney transplant Pre-Operative Diagnosis: Alcoholic cirrhosis of liver Post-Operative Diagnosis: Alcoholic cirrhosis of liver Specimen(s) Submitted: [facility] [place] [facility] CPT Code(s): 42673 X 1; 21870 X 5 Additional Information: FINAL DIAGNOSIS: A. 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 - Negative for neoplasm. - Increased hepatocellular iron deposition (3+; Modified Scheuer). Gall bladder: -Intramucosal and submucosal vascular congestion and hemorrhage. - Negative for dysplasia or malignancy. Gross Description: Received in formalin, labeled Blair Gilbert and [place] [facility] , is a 2338-gram, hepatectomy specimen [...] discrete masses or other lesions are identified. [employer] sections are submitted in cassettes [id number] as follows: A1: Hilar margins, en face. [...] Pathologist signing this report is located at [facility] [place], [address] [place] [address], [facility] [phone], CLIA ID: [id number] us Harvey Domínguez III, MD PATHOLOGY/CYTOLOGY ORDERABLES [...] POINT OF CARE TEST ORDERABLES Final Result [facility] [address] * POC Sample Type (10/25/2024 11:40 PM EDT) [facility] POC Sample Type Arterial 10/25/2024 11:57 PM EDT [facility] Blood, Arterial 10/25/2024 1 1:40 PM EDT 10/25/2024 11:57 PM EDT Harvey Domínguez III, MD POINT OF CARE TEST ORDERABLES Final Result [facility] [address] * POC Anion Gap (10/25/2024 11:40 PM EDT) Pathologist [facility] POC Anion Gap, Arterial 13 3 - 16 mmol/L 10/25/2024 11:57 PM EDT [facility] Blood, Arterial 10/25/2024 1 1:40 PM EDT 10/25/2024 11:57 PM EDT us Harvey Domínguez III, MD POINT OF CARE TEST ORDERABLES Final Result [facility] [address] * POC Chloride (10/25/2024 11:40 PM EDT) POC Chloride 102 98 - 110 mmol/L 10/25/2024 11:57 PM EDT [facility] Blood, Arterial 10/25/2024 1 1:40 PM EDT 10/25/2024 11:57 PM EDT us Harvey Domínguez III, MD POINT OF CARE TEST ORDERABLES Final Result Performing Organization Address [facility]/ZIP Co de Phone Number [facility] [address] [facility]. [address] * (ABNORMAL) POC Hemoglobin (10/25/2024 11:40 PM EDT) POC Hemoglobin 6.6(L) 14.0 - 18.0 g/dL 10/25/2024 11:57 PM EDT [facility] Blood, Arterial 10/25/2024 1 1:40 PM EDT 10/25/2024 11:57 PM EDT us Harvey Domínguez III, MD POINT OF CARE TEST ORDERABLES Final Result Performing Organization Address City/[facility]/ZIP Co de Phone Number [facility] [address]. [address] * (ABNORMAL) POC hematocrit (10/25/2024 11:40 PM EDT) POC Hematocrit 19.0(L) 40 - 52 % 10/25/2024 11:57 PM EDT [facility] Blood, Arterial 10/25/2024 1 1:40 PM EDT 10/25/2024 11:57 PM EDT us Harvey Domínguez III, MD POINT OF CARE TEST ORDERABLES Final Result Performing Organization Address City/[facility]/ZIP Co de Phone Number [facility] [address] [place] [address]. [address] * POC Lactate (10/25/2024 11:40 PM EDT) Pathologist [facility] POC Lactate 1.36 0.50 - 2.20 mmol/L 10/25/2024 11:57 PM EDT [facility] Blood, Arterial 10/25/2024 1 1:40 PM EDT 10/25/2024 11:57 PM EDT us Harvey Domínguez III, MD POINT OF CARE TEST ORDERABLES Final Result Performing Organization Address City/[facility]/ZIP Co de Phone Number [facility] [address] [facility]. [address] * (ABNORMAL) POC Glucose (10/25/2024 11:40 PM EDT) [facility] POC Glucose, Arterial 101(H) 70 - 100 mg/dL 10/25/2024 11:57 PM EDT [facility] Blood, Arterial 10/25/2024 1 1:40 PM EDT 10/25/2024 11:57 PM EDT Harvey Domínguez III, MD POINT OF CARE TEST ORDERABLES Final Result [facility] [address] [facility]. [address] * POC Ionized Calcium (10/25/2024 11:40 PM EDT) Pathologist [facility] POC Ionized Calcium 4.50 4.50 - 5.30 mg/dL 10/25/2024 11:57 PM EDT [facility] Blood, Arterial 10/25/2024 1 1:40 PM EDT 10/25/2024 11:57 PM EDT us Harvey Domínguez III, MD POINT OF CARE TEST ORDERABLES Final Result [facility] [address] [facility]. [address] * (ABNORMAL) POC Potassium (10/25/2024 11:40 PM EDT) POC Potassium 1.9(LL) 3.5 - 5.3 mmol/L 10/25/2024 11:57 PM EDT [facility] Blood, Arterial 10/25/2024 1 1:40 PM EDT 10/25/2024 11:57 PM EDT us Harvey Domínguez III, MD POINT OF CARE TEST ORDERABLES Final Result Performing Organization Address City/[facility]/ZIP Co de Phone Number [facility] [address] [facility]. [address] * (ABNORMAL) POC Sodium (10/25/2024 11:40 PM EDT) Pathologist [facility] POC Sodium 135(L) 136 - 146 mmol/L 10/25/2024 11:57 PM EDT [facility] Blood, Arterial 10/25/2024 1 1:40 PM EDT 10/25/2024 11:57 PM EDT Harvey Domínguez III, MD POINT OF CARE TEST ORDERABLES Final Result [facility] [address] [facility]. [address] * (ABNORMAL) POC TCO2 (10/25/2024 11:40 PM EDT) POC TCO2, Arterial 21(L) 23 - 27 mmol/L 10/25/2024 11:57 PM EDT [facility] Blood, Arterial 10/25/2024 1 1:40 PM EDT 10/25/2024 11:57 PM EDT us Harvey Domínguez III, MD POINT OF CARE TEST ORDERABLES Final Result [facility] [address] [facility]. [address] * POC O2 SAT (10/25/2024 11:40 PM EDT) POC O2 Saturation, Arterial 98 95 - 98 % 10/25/2024 11:57 PM EDT [facility] Blood, Arterial 10/25/2024 1 1:40 PM EDT 10/25/2024 11:57 PM EDT us Harvey Domínguez III, MD POINT OF CARE TEST ORDERABLES Final Result Performing Organization Address City/[facility]/ZIP Co de Phone Number [facility] [address] [facility]. [address] * (ABNORMAL) POC Base Excess (10/25/2024 11:40 PM EDT) POC Base Excess, Arterial -6(L) -2 - 3 mmol/L 10/25/2024 11:57 PM EDT [facility] Blood, Arterial 10/25/2024 1 1:40 PM EDT 10/25/2024 11:57 PM EDT us Harvey Domínguez III, MD POINT OF CARE TEST ORDERABLES Final Result [facility] [address] [facility]. [address] * (ABNORMAL) POC HCO3 (10/25/2024 11:40 PM EDT) POC HCO3, Arterial 20(L) 22 - 26 mmol/L 10/25/2024 11:57 PM EDT [facility] Blood, Arterial 10/25/2024 1 1:40 PM EDT 10/25/2024 11:57 PM EDT us Harvey Domínguez III, MD POINT OF CARE TEST ORDERABLES Final Result Performing Organization Address City/[facility] Co de Phone Number [facility] [address] * (ABNORMAL) POC PO2 (10/25/2024 11:40 PM EDT) POC pO2, Arterial 107(H) 80 - 100 mm Hg 10/25/2024 11:57 PM EDT [facility] Blood, Arterial 10/25/2024 1 1:40 PM EDT 10/25/2024 11:57 PM EDT us Harvey Domínguez III, MD POINT OF CARE TEST ORDERABLES Final Result Performing Organization Address [facility] Co de Phone Number [facility] [address] [facility]. [address] * POC PCO2 (10/25/2024 11:40 PM EDT) POC pCO2, Arterial 41 35 - 45 mm Hg 10/25/2024 11:57 PM EDT [facility] Blood, Arterial 10/25/2024 1 1:40 PM EDT 10/25/2024 11:57 PM EDT us Harvey Domínguez III, MD POINT OF CARE TEST ORDERABLES Final Result Performing Organization Address City/[facility] Co de Phone Number [facility] [address] [facility]. [address] * (ABNORMAL) POC pH (10/25/2024 11:40 PM EDT) POC pH, Arterial 7.29(L) 7.35 - 7.45 10/25/2024 11:57 PM EDT [facility] Blood, Arterial 10/25/2024 1 1:40 PM EDT 10/25/2024 11:57 PM EDT us Harvey Domínguez III, MD POINT OF CARE TEST ORDERABLES Final Result [facility] [address] [facility]. [address] * Urine culture (10/25/2024 11:08 PM EDT) Culture Result <1,000 cfu/mL [facility] Culture Result Skin/Urogeni rony Mckayla. No Further Workup. [facility] Newly Placed Berkowitz Urine URINE SPECIMEN / Unknown 10/25/2024 11:08 PM EDT Comment:urine culture Narrative [facility] - 10/28/2024 9:59 AM EDT urine culture urine culture Harvey Domínguez III, MD MICROBIOLOGY - GENE RAL ORDERABLES Final Result Performing Organization Address City/[facility] Co de Phone Number [facility] [address] [facility]. [address] * X-ray Portable Chest (10/25/2024 10:19 PM EDT) Anatomical Region Laterality Modality Chest Radiographic Rachel ging 10/25/2024 9:5 6 PM EDT Impressions 10/25/2024 10:38 PM EDT [...] - 2.2 mmol/L 10/25/2024 10:39 PM EDT [facility] Plasma 10/25/2024 10:1 7 PM EDT 10/25/2024 10:17 PM EDT Ben Blake MD LAB BLOOD ORDERABLES Final Re sult [facility] [address] [place] [address], [facility] * (ABNORMAL) Ferritin (10/25/2024 10:17 PM EDT) Ferritin 623.2(H) 23.9 - 336.2 ng/mL 10/25/2024 11:02 PM EDT [facility] Serum 10/25/2024 10:1 7 PM EDT 10/25/2024 10:17 PM EDT us Leandra Og MD LAB BLOOD ORDERABLES F inal Result [facility] [address] [facility]. [address] * Iron Studies (Iron + TIBC) (10/25/2024 10:17 PM EDT) Iron 128 50 - 212 ug/dL 10/25/2024 10:44 PM EDT [facility] % Iron Saturation SEE COMMENT 15.0 - 55.0 % 10/25/2024 10:44 PM EDT [facility] Comment:Unable to calculate result because contributing result outside reportable range.. TIBC SEE COMMENT 261 - 462 ug/dL 10/25/2024 10:44 PM EDT [facility] Comment:Unable to calculate result because contributing result outside reportable range.. Serum 10/25/2024 10:1 7 PM EDT 10/25/2024 10:17 PM EDT us Leandra Og MD LAB BLOOD ORDERABLES F inal Result [facility] [address] [facility]. [address] * PTH (10/25/2024 10:17 PM EDT) PTH 36.0 12.0 - 88.0 pg/mL 10/25/2024 11:01 PM EDT [facility] Serum 10/25/2024 10:1 7 PM EDT 10/25/2024 10:17 PM EDT us Leandra Og MD LAB BLOOD ORDERABLES F inal Result [facility] [address] [facility]. [address] * HIV 1+2 Antibody/Antigen with Reflex (10/25/2024 10:17 PM EDT) HIV 1+2 AB/AGN Nonreactive Nonreactive 10/25/2024 11:03 PM EDT [facility] Serum 10/25/2024 10:1 7 PM EDT 10/25/2024 10:16 PM EDT [facility] - 10/25/2024 11:03 PM EDT \HIVRNR Leandra Og MD LAB BLOOD ORDERABLES F inal Result Performing Organization Address [facility] Co de Phone Number [facility] [address] [facility]. [address] * Hepatitis B Core Antibody (10/25/2024 10:17 PM EDT) Hep B Core Total Ab Nonreactive Nonreactive 10/25/2024 11:07 PM EDT [facility] Comment:Health Department no tified in accordance with reportable infectious disease guidelines. Serum 10/25/2024 10:1 7 PM EDT 10/25/2024 10:17 PM EDT [facility] - 10/25/2024 11:07 PM EDT A nonreactive final interpretation indicates that anti-HBc antibodies were not detected in the sample; it is possible that the individual is not infected with HBV. us Leandra Og MD LAB BLOOD ORDERABLES F inal Result Performing Organization Address [facility] Co de Phone Number [facility] [address] [facility]. [address] * Hepatitis C Antibody (10/25/2024 10:17 PM EDT) HCV Ab Nonreactive Nonreactive 10/25/2024 11:16 PM EDT [facility] Comment:Health Department no tified in accordance with reportable infectious disease guidelines. Serum 10/25/2024 10:1 7 PM EDT 10/25/2024 10:17 PM EDT [facility] - 10/25/2024 11:16 PM EDT Antibodies to HCV not detected; does not exclude the possibility of exposure to HCV. Leandra Og MD LAB BLOOD ORDERABLES F inal Result Performing Organization Address City/[facility]/ZIP Co de Phone Number [facility] [address] * (ABNORMAL) Hepatitis B Surface Antibody, Quantitati (10/25/2024 10:17 PM EDT) [facility] HBSAB NUMBER 10.70(H) 0.00 - 9.99 mIU/mL 10/25/2024 11:52 PM EDT [facility] Hep B S Ab Equivocal (A) Nonreactive 10/25/2024 11:52 PM EDT [facility] Serum 10/25/2024 10:1 7 PM EDT 10/25/2024 10:17 PM EDT Leandra Og MD LAB BLOOD ORDERABLES F inal Result Performing Organization Address [facility] Co de Phone Number [facility] [address] [facility]. [address] * Hepatitis B surface antigen (10/25/2024 10:17 PM EDT) [facility] Hep B Surface Ag Nonreactive Nonreactive 10/25/2024 11:12 PM EDT [facility] Comment:Health Department no tified in accordance with reportable infectious disease guidelines. Serum 10/25/2024 10:1 7 PM EDT 10/25/2024 10:17 PM EDT Narrative [facility] - 10/25/2024 11:12 PM EDT Specimen is considered negative for HBsAg. Leandra Og MD LAB BLOOD ORDERABLES F inal Result Performing Organization Address City/[facility] Co de Phone Number [facility] [address] [facility]. [address] * Hepatitis A Antibody Total (10/25/2024 10:17 PM EDT) [facility] Anti-HAV Total (IgG + IgM) Nonreactive 10/25/2024 11:13 PM EDT [facility] Serum 10/25/2024 10:1 7 PM EDT 10/25/2024 10:17 PM EDT Narrative [facility] - 10/25/2024 11:13 PM EDT HAV antibodies not detected Leandra Og MD LAB BLOOD ORDERABLES F inal Result Performing Organization Address City/[facility]/ZIP Co de Phone Number [facility] [address] [facility]. [address] * (ABNORMAL) Hepatic Function Panel (10/25/2024 10:17 PM EDT) [facility] Total Bilirubin 9.1(H) 0.0 - 1.5 mg/dL 10/25/2024 10:47 PM EDT [facility] Bilirubin, Direct 4.58(H) 0.00 - 0.40 mg/dL 10/25/2024 10:47 PM EDT [facility] AST 51(H) 13 - 39 U/L 10/25/2024 10:47 PM EDT [facility] ALT 23 7 - 52 U/L 10/25/2024 10:47 PM EDT [facility] Alkaline Phosphatase 144(H) 36 - 125 U/L 10/25/2024 10:47 PM EDT [facility] Total Protein 5.5(L) 6.4 - 8.9 g/dL 10/25/2024 10:47 PM EDT [facility] Albumin 3.5 3.5 - 5.7 g/dL 10/25/2024 10:47 PM EDT [facility] Bilirubin, Indirect 4.52(H) 0.00 - 1.10 mg/dL 10/25/2024 10:47 PM EDT [facility] Plasma 10/25/2024 10:1 7 PM EDT 10/25/2024 10:17 PM EDT us Leandra Og MD LAB BLOOD ORDERABLES F inal Result [facility] [address] [facility]. [address] * (ABNORMAL) Renal Function Panel w/EGFR (10/25/2024 10:17 PM EDT) Sodium 137 133 - 146 mmol/L 10/25/2024 10:47 PM EDT [facility] Potassium 2.1(LL) 3.5 - 5.3 mmol/L 10/25/2024 10:47 PM EDT [facility] Comment:Critical Result K:2. 1 Called to and read back by: ALICIA CARCAMO RN at: 10/25/2024 22:47:45 by:NANCY Chloride 100 98 - 110 mmol/L 10/25/2024 10:47 PM EDT [facility] CO2 20(L) 21 - 33 mmol/L 10/25/2024 10:47 PM EDT [facility] Anion Gap 17(H) 3 - 16 mmol/L 10/25/2024 10:47 PM EDT [facility] BUN 74(H) 7 - 25 mg/dL 10/25/2024 10:47 PM EDT [facility] Creatinine 3.87(H) 0.60 - 1.30 mg/dL 10/25/2024 10:47 PM EDT [facility] Glucose 114(H) 70 - 100 mg/dL 10/25/2024 10:47 PM EDT [facility] Calcium 9.3 8.6 - 10.3 mg/dL 10/25/2024 10:47 PM EDT [facility] Phosphorus 5.9(H) 2.1 - 4.7 mg/dL 10/25/2024 10:47 PM EDT [facility] Albumin 3.5 3.5 - 5.7 g/dL 10/25/2024 10:47 PM EDT [facility] Osmolality, Calculated 307(H) 278 - 305 mOsm/kg 10/25/2024 10:47 PM EDT [facility] EGFR 19 10/25/2024 10:47 PM EDT [facility] Comment:As [...] ORDERABLES F inal Result Performing Organization Address City/[facility]/ZIP Co de Phone Number [facility] [address] [facility]. [address] * (ABNORMAL) APTT, NO ANTICOAGULANT (10/25/2024 10:17 PM EDT) aPTT 41.7(H) 25.5 - 35.0 seconds 10/25/2024 10:36 PM EDT [facility] Plasma 10/25/2024 10:1 7 PM EDT 10/25/2024 10:17 PM EDT Leandra Og MD LAB BLOOD ORDERABLES F inal Result Performing Organization Address City/[facility]/ZIP Co de Phone Number [facility] [address] [facility]. [address] * (ABNORMAL) Protime-INR (10/25/2024 10:17 PM EDT) Protime 21.7(H) 12.1 - 15.1 seconds 10/25/2024 10:35 PM EDT [facility] INR 1.8(H) 0.9 - 1.1 10/25/2024 10:35 PM EDT [facility] Comment: RECOMMENDED THERAPEUTIC RANGES USING INR : Stable oral anticoagulant therapy: 2.0 - 3.0 Mechanical prosthetic heart valve: 2.5 - 3.5 Recurrent acute myocardial infarction: 2.5 - 3.5 Plasma 10/25/2024 10:1 7 PM EDT 10/25/2024 10:17 PM EDT us Leandra Og MD LAB BLOOD ORDERABLES F inal Result [facility] [address] [place], [place] [address] * (ABNORMAL) Differential (10/25/2024 10:17 PM EDT) Differential Comments See Note 10/25/2024 10:54 PM EDT [facility] Comment: _Platelets Appear Decreased _Platelet Morphology Normal Scan Result PERFORMED 10/25/2024 10:54 PM EDT [facility] Neutrophils Relative 79.8 40.0 - 80.0 % 10/25/2024 10:54 PM EDT [facility] Lymphocytes Relative 9.6(L) 15.0 - 45.0 % 10/25/2024 10:54 PM EDT [facility] Monocytes Relative 8.9 0.0 - 12.0 % 10/25/2024 10:54 PM EDT [facility] Eosinophils Relative 1.3 0.0 - 8.0 % 10/25/2024 10:54 PM EDT [facility] Basophils Relative 0.4 0.0 - 1.0 % 10/25/2024 10:54 PM EDT [facility] nRBC 0 0 - 0 /100 WBC 10/25/2024 10:54 PM EDT [facility] Neutrophils Absolute 4,948 1,520 - 8,640 /uL 10/25/2024 10:54 PM EDT [facility] Lymphocytes Absolute 595 570 - 4,860 /uL 10/25/2024 10:54 PM EDT [facility] Monocytes Absolute 552 0 - 1,296 /uL 10/25/2024 10:54 PM EDT [facility] Eosinophils Absolute 81 0 - 864 /uL 10/25/2024 10:54 PM EDT [facility] Basophils Absolute 25 0 - 108 /uL 10/25/2024 10:54 PM EDT [facility] PLT Morphology Platelet morphology appears normal 10/25/2024 10:54 PM EDT [facility] Whole Blood 10/25/2024 10:1 7 PM EDT 10/25/2024 10:17 PM EDT us Leandra Og MD LAB BLOOD ORDERABLES F inal Result [facility] [address] [place] [address], [facility] * (ABNORMAL) CBC (10/25/2024 10:17 PM EDT) WBC 6.2 3.8 - 10.8 10E3/uL 10/25/2024 10:54 PM EDT [facility] RBC 2.40(L) 4.20 - 5.80 10E6/uL 10/25/2024 10:54 PM EDT [facility] Hemoglobin 8.3(L) 13.2 - 17.1 g/dL 10/25/2024 10:54 PM EDT [facility] Hematocrit 23.7(L) 38.5 - 50.0 % 10/25/2024 10:54 PM EDT [facility] MCV 98.9 80.0 - 100.0 fL 10/25/2024 10:54 PM EDT [facility] MCH 34.6(H) 27.0 - 33.0 pg 10/25/2024 10:54 PM EDT [facility] MCHC 35.0 32.0 - 36.0 g/dL 10/25/2024 10:54 PM EDT [facility] RDW 17.8(H) 11.0 - 15.0 % 10/25/2024 10:54 PM EDT [facility] Platelets 56(L) 140 - 400 10E3/uL 10/25/2024 10:54 PM EDT [facility] Comment: Specimen checked for clots. None detected. Slide Reviewed for PLT Clumps. None Seen. Platelet Estimate Decreased 10/25/2024 10:54 PM EDT [facility] MPV 8.1 7.5 - 11.5 fL 10/25/2024 10:54 PM EDT [facility] Whole Blood 10/25/2024 10:1 7 PM EDT 10/25/2024 10:17 PM EDT [facility] - 10/25/2024 10:54 PM EDT Peripheral blood smear was scanned per review criteria approved by the laboratory biomedical photographer. Leandra Og MD LAB BLOOD ORDERABLES F inal Result Performing Organization Address [facility] de Phone Number [facility] [address] [place] [address] * Donor Specific Antibody (DSA) (10/25/2024 10:00 PM EDT) Pathologist [facility] AntiDonor Antibodies The request and specimen(s) for this test have been received and transported to the [facility] at [address] [place] [address]. The [facility] will report results directly to the client. 10/25/2024 10:20 PM EDT [facility] Comment:Testing performed by [facility], [facility], [address] [place] [address]. The [facility] report has been forwarded to the appropriate ordering location. Please refer to this report for patient results. Serum 10/25/2024 10:0 0 PM EDT 10/25/2024 10:20 PM EDT Leandra Og MD LAB BLOOD ORDERABLES F inal Result Performing Organization Address [facility] Co de Phone Number [facility] [address] [place] [address] * (ABNORMAL) Venous Blood Gas, Line/Syringe (10/25/2024 10:00 PM EDT) PH-Line Draw 7.38 7.32 - 7.42 10/25/2024 10:08 PM EDT [facility] PCO2-Line Draw 33(L) 41 - 51 mm Hg 10/25/2024 10:08 PM EDT [facility] PO2-Line Draw 33 25 - 40 mm Hg 10/25/2024 10:08 PM EDT [facility] HCO3-Line Draw 20(L) 24 - 28 mmol/L 10/25/2024 10:08 PM EDT [facility] CO2 Content-Line Draw 21(L) 25 - 29 mmol/L 10/25/2024 10:08 PM EDT [facility] Base Excess-Line Draw -5.0(L) -2.0 - 3.0 mmol/L 10/25/2024 10:08 PM EDT [facility] %HBO2-Line Draw 53.8 40.0 - 70.0 % 10/25/2024 10:08 PM EDT [facility] Carboxyhgb-Ludivina e Draw 1.9 % 10/25/2024 10:08 PM EDT [facility] Comment: CARBOXYHEMOGLOBIN (CO) REFERENCE RANGES: Non-Smokers: <2 % Smokers: <8 % TOXIC: >20 % Methemoglobin- Line Draw 0.2 0.0 - 1.5 % 10/25/2024 10:08 PM EDT [facility] Reduced Hemoglobin-Ludivina e Draw 44.1(H) 0.0 - 5.0 % 10/25/2024 10:08 PM EDT [facility] Venous, Line Draw 10/25/2024 10:00 PM EDT 10/25/2024 10:04 PM EDT us Leandra Og MD LAB BLOOD ORDERABLES F inal Result [facility] [address] * (ABNORMAL) POC Glucose Monitoring Device (10/25/2024 9:56 PM EDT) POC Glucose Monitoring Device 103(H) 70 - 100 mg/dL 10/25/2024 9:58 PM EDT [facility] Blood 10/25/2024 9:56 PM EDT 10/25/2024 9:57 PM EDT us Harvey Domínguez III, MD POINT OF CARE TEST ORDERABLES Final Result [facility] [address] * ECG 12 lead (MUSE) (10/25/2024 9:34 PM EDT) 10/25/2024 9:34 PM EDT Narrative MUSE - 10/27/2024 10:08 AM EDT Ventricular Rate: 97 BPM Atrial Rate: 86 BPM QRS Duration: 106 ms QT: 532 ms QTc: 675 ms P [place]: 38 degrees R [place]: -29 degrees T [place]: 32 degrees Diagnosis Line: Critical Test Result: Long QTc , AV Block ^ SINUS RHYTHM WITH PREMATURE VENTRICULAR COMPLEXES ^ PROLONGED QT ^ NONSPECIFIC ST AND T WAVE CHANGES ^ ABNORMAL ECG ^ ^ Confirmed by MD HA, NOAHYAKady ([id number]) on 10/27/2024 10:08:26 AM Leandra Og MD ECG ORDERABLES Final Result Performing Organization Address [facility] Co de Phone Number MUSE * Hepatitis C RNA, Quant Reflex to Genotyp (10/25/2024 8:18 PM EDT) Pathologist [facility] Units Not Detected IU/mL 10/27/2024 11:03 AM EDT [facility] Comment:Test methodology for HCV RNA quantification is an FDA-approved nucleic acid amplification assay. The Lower Limit of Quantitation (LLOQ) is 15 IU/mL. The linear range of the assay is 15-100,000,000 IU/mL. The Limit of Detection (LoD) is 12.0 IU/mL for EDTA plasma. The reference range is Not Detected. IU log10 See Note log 10 IU/mL 10/27/2024 11:03 AM EDT [facility] Comment:HCV RNA not detected . Plasma 10/25/2024 8:18 PM EDT 10/25/2024 10:27 PM EDT us Leandra Og MD LAB BLOOD ORDERABLES F inal Result Performing Organization Address City/[facility]/ZIP Co de Phone Number [facility] [address] [place] [address], [facility] * Urinalysis w/Rfl to Microscopic (10/25/2024 8:18 PM EDT) Color, UA Yellow Yellow,Straw 10/25/2024 10:38 PM EDT [facility] Clarity, UA Clear Clear 10/25/2024 10:38 PM EDT [facility] Specific [place], UA 1.010 1.005 - 1.035 10/25/2024 10:38 PM EDT [facility] pH, UA 6.0 5.0 - 8.0 10/25/2024 10:38 PM EDT [facility] Protein, UA Negative Negative mg/dL 10/25/2024 10:38 PM EDT [facility] Glucose, UA Negative Negative mg/dL 10/25/2024 10:38 PM EDT [facility] Ketones, UA Negative Negative mg/dL 10/25/2024 10:38 PM EDT [facility] Bilirubin, UA Negative Negative 10/25/2024 10:38 PM EDT [facility] Blood, UA Negative Negative 10/25/2024 10:38 PM EDT [facility] Nitrite, UA Negative Negative 10/25/2024 10:38 PM EDT [facility] Urobilinogen, UA <2.0 0.2 - 1.9 mg/dL 10/25/2024 10:38 PM EDT [facility] Leukocyte Esterase, UA Negative Negative 10/25/2024 10:38 PM EDT [facility] Urine 10/25/2024 8:18 PM EDT 10/25/2024 10:35 PM EDT Narrative [facility] - 10/25/2024 10:38 PM EDT Microscopic testing is not performed when the dipstick is negative for blood, leukocyte, protein and nitrite. us Leandra Og MD URINE ORDERABLES Final Result [facility] [address] [place] [address], [facility] * Toxoplasma gondii antibody, IgG (10/25/2024 8:18 PM EDT) Toxoplasma Gondii IgG <3.0 0.0 - 7.1 IU/mL 10/27/2024 7:55 AM EDT [facility] Comment: Negative <7.2 Equivocal 7.2 - 8.7 Positive >8.7 Serum 10/25/2024 8:18 PM EDT 10/27/2024 8:06 AM EDT N[facility]ative [facility] - 10/27/2024 8:06 AM EDT PERFORMED AT: [facility] [id number] CHUCK BONER: Bassam Khalil, PhD PHONE: [phone] Leandra Og MD LAB BLOOD ORDERABLES F inal Result [facility] [address] [place] [address]. [address] * Antibody Screen (10/25/2024 7:46 PM EDT) Antibody Screen Negative 10/25/2024 10:41 PM EDT [facility] Blood 10/25/2024 7:46 PM EDT 10/25/2024 9:54 PM EDT Narrative [facility] - 10/25/2024 10:44 PM EDT Testing performed by [facility]fusion [facility] Ben Blake MD BLOOD BANK TEST ORDERABLES Fi nal Result Performing Organization Address [facility] Co de Phone Number [facility] [address] [place] [address]. [address] * ABO/Rh (10/25/2024 7:46 PM EDT) ABO Grouping O 10/25/2024 10:23 PM EDT [facility] Rh Type Positive 10/25/2024 10:23 PM EDT [facility] Blood 10/25/2024 7:46 PM EDT 10/25/2024 9:54 PM EDT Ben Blake MD BLOOD BANK TEST ORDERABLES Fi nal Result Performing Organization Address City/[facility] Co de Phone Number [facility] [address] [place] [address] * (ABNORMAL) TEG-Standard Global Hemostasis (Rapid TEG with Heparin Effect, Contains a Baseline TEG) (10/25/2024 7:46 PM EDT) Citrated Kaolin Reaction Time (TEGHEPARINASE) 8.4 4.6 - 9.1 minutes 10/25/2024 10:49 PM EDT [facility] Citrated Rapid Teg Maximum Amplitude (TEGHEPARINASE) <40.0(L) 52.0 - 70.0 mm 10/25/2024 10:49 PM EDT [facility] Citrated Functional Fibrinogen Maximum Amplitude (TEGHEPARINASE) 6.7(L) 15.0 - 32.0 mm 10/25/2024 10:49 PM EDT [facility] Citrated Kaolin W/Heparinase Reaction Time (TEGHEPARINASE) 8.1 4.3 - 8.3 minutes 10/25/2024 10:49 PM EDT [facility] Citrated Kaolin K-Time (TEGHEPARINASE) 2.5(A) 0.8 - 2.1 minutes 10/25/2024 10:49 PM EDT [facility] Citrated Kaolin Angle (TEGHEPARINASE) 65.7(A) 63.0 - 78.0 degrees 10/25/2024 10:49 PM EDT [facility] Citrated Kaolin Maximum Amplitude (TEGHEPARINASE) <40.0(L) 52.0 - 69.0 mm 10/25/2024 10:49 PM EDT [facility] Citrated Functional Fibrinogen- Fibrinogen Level (TEGHEPARINASE) 159.5(L) 278.0 - 581.0 mg/dL 10/25/2024 10:49 PM EDT [facility] Whole Blood (Citrate) 10/25/2024 7:46 PM EDT 10/25/2024 10:15 PM EDT us Ben Blake MD LAB BLOOD ORDERABLES Final Re sult [facility] [address] [place] [address], [facility] documented in this encounter Visit Diagnoses Diagnosis Acute kidney injury superimposed on CKD ([facility])- Primary Prophylactic antibiotic Encounter for long-term [...] in sodium chloride 0.9% 100 mL IVPB ([id number]) 1 g, Intravenous, at 200 mL/hr, Every 6 hours scheduled (4 times per day), First dose on Sun10/26/24 at 0630, For 2 days, Dosage may need to be adjusted for renal dysfunction. Full dose is 1g IV q6h Use [id number] Adapter - Mix Thoroughly Before Administration New [...] Once underlying shock sufficiently improved, defined as jan-[id number] r requirement ? 0.2 mcg/kg/min (norepinephrine equivalent) [...] 6:48 PM EDT 1 mg HYDROmorphone (DILAUDID) REQUIREMENTS ENGINEER 6 mg/30 mL syringe *Standard Conc* Intravenous, Continuous, Starting on Sun10/27/24 at 1730, HIGH ALERT MEDICATION New Syringe/Cartridge 10/28/2024 3:59 AM EDT New Syringe/Cartridge 10/27/2024 7:09 PM EDT HYDROmorphone (DILAUDID) REQUIREMENTS ENGINEER 6 mg/30 mL syringe *Standard Conc* Intravenous, [...] in sodium chloride 0.9 % 100 mL [id number] IVPB 50 mg, Intravenous, at 100 mL/hr, Every 24 hours, First dose on Sun10/27/24 at 1400, PROTECT FROM LIGHT FLUSH LINE w/NSS PRIOR TO ADMINISTRATION Use [id number] Adapter - Mix Thoroughly Before Administration Rate/Dose [...] paralyzed: Do not titrate - follow policy [id number]. Start infusion if unable to maintain goal [...] Paulette Flannery, ЮЛИЯ)1155 (New Bag - Provider: Paulettedarryl Flannery RN) albumin human 25% (COMPLETED) 50 [...] Yvonne Gale, ЮЛИЯ - Comment: given at 1843) 1018 (Given - Provider: Paulette Flannery RN)1344 (Given - Provider: Paulette Flannery RN)1714 (Given - Provider: Paulette Flannery RN)2118 (Given - Provider: Yvonne Gale, ЮЛИЯ) 1141 (Given - Provider: Paulette Flannery RN)1530 [...] = 13 mEq; Potassium = 1.1 mEq 0257 (Given - Provider: Yvonne Gale RN) sod [...] = 13 mEq; Potassium = 1.1 mEq 1901 (Given - Provider: Paulette Flannery RN)2118 (Given [...] Paulette Flannery RN) 0555 (Given - Provider: vYonne Gale RN) tacrolimus (PROGRAF) capsule 6 mg [...] Vivi Newton RN)2232 (Given - Provider: Yvonne Gale RN) 0215 (Given - Provider: Yvonne Gale, ЮЛИЯ)0615 (Given - Provider: Yvonne Gale, ЮЛИЯ)1153 (Given - Provider: Paulette Flannery, ЮЛИЯ)1714 (Given - Provider: Paulette Flannery RN)2120 (Given [...] documented as of this encounter Care Teams Tool Maker Bench Relationship Specialty Start Date End Date Enedina Mcguire NP [address] [place] [address] PCP - General Internal Medicine 10/05/24 Alicia Pantoja, RN Txp Post Coordinator Transplant Hepatology 10/28/24 documented as of this encounter
--- OUTSIDE RECORDS SUMMARY | 2024-10-25 22:30 | XMS_ITS | Encounter Summary ---
Author Organization [facility] Address [address] [place] [address] Care Team Providers Care Pediatric Medical Assistant Name Role Phone Enedina Mcguire NP Primary Care Provider [phone] Source Comments This information has been disclosed [...] release of HIV test results or diagnoses. [id number] Reason for Visit * Auth/Cert (Routine) Specialty Diagnoses / Procedures Referred By Shane hernadez Referred To Contact Surgical Intensive Care Diagnoses Liver transplant recipient (CMS-HCC) cirrhosis and CKD Procedures LIVER-KIDNEY TRANSPLANT [facility] SICU [address] [place] [address] Phone: tel: Referral ID Status Reason Start Date Expiration Date Visits Re quested Visits Authorized [id number] 1 1 Encounter Details Date Type Department Care Team (Late st Contact Info) Description 10/25/2024 10:30 PM EDT - 10/26/2024 6:12 AM EDT Surgery [facility] PERIOP [address] [place] [address] Semaj Mcnair III, MD [address] [facility] [address] [place] [address] LIVER TRANSPLANT Surgery Details Date/Time [...] the past 12 months has th e [employer], gas, oil, or water [employer] threatened to shut off services in your [...] any time in the past 12 m [facility], were you homeless or living [...] Plata MD - 11/02/2024 2:04 PM EDT [facility] Liver Transplant Surgical Service Inpatient Discharge Summary Patient: Blair Gilbert : 1985 CSN: [id number] Date of Admission: 10/25/2024 Date of Discharge: 11/02/2024 Attending Physician: Ldyia Sanchez MD Admission Diagnoses Past Medical History: Diagnosis Date Alcoholic cirrhosis of liver (CMS-HCC) Esophageal varices (CMS-HCC) Hepatorenal syndrome (CMS-HCC) Hypertension Other hyperlipidemia 07/26/2024 Renal cell carcinoma (CMS-HCC) Thrombocytopenia (CMS-HCC) Thyroid disease Discharge Diagnoses As above Operations and Imaging Studies Surgeries: Surgical/Procedural Cases on this Admission Case IDs Date Procedure Surgeon Location Status [id number] 10/25/24 LIVER TRANSPLANT Semaj Mcnair III, MD OR Comp [id number] 10/27/24 Donor Kidney Transplant , Back Bench [...] EXAM: US ABDOMEN LIMITED EXAM: US DUPLEX HWX-OGLFET-JXVHDVO COMPLETE INDICATION: Post-op liver transplant COMPARISON: None [...] visualized secondary to poor acoustic windows. The [place] right kidney measures 11.6 cm in length. [...] 30 tablet Refills: 0 naloxone 4 mg/actuation Spade Commonly known as: NARCAN Apply 1 spray [...] Your Medications These medications were sent to [facility] NAA Baum - [address] [facility] Mya [address]Mal Deya Roque [address] mycophenolate 250 mg capsule tacrolimus 1 MG capsule These medications were sent to [facility] [address] [place] [id number] Hours: Sunday - Sunday: 8:00AM - 6:00PM [...] Case IDs Date Procedure Surgeon Location Status [id number] 10/25/24 LIVER TRANSPLANT Semaj Mcnair III, MD OR Comp [id number] 10/27/24 Donor Kidney Transplant , Back Bench [...] discharge. NEURO/PAIN - Patient placed on Dilaudid SEASONAL SALES ASSOCIATE once extubated, then transitioned to multi-modal pain [...] stentis scheduled for removal on 11/25 [facility] - PT/OT evaluated patient and recommended Home PT/OT, outpatient PT/OT only available. ENDO - A1C is 5.0. Pt was not on diabetic regimen prior to arrival. Patient developed steroid-induced hyperglycemia 2/2 steroid regimen. Discharged home on the following regimen: HDSSI. Patient met w/ perinatal educator prior to discharge. HEME - Post-operatively, [...] and family received post-transplant education from quality assurance coordinator as well as medication teaching from [...] Center 11/04/2024 8:40 AM [facility], [facility] LTRA HOX HOX 11/04/2024 10:10 AM LTRA HEPATORENAL HOX LTRA HOX HOX 11/25/2024 9:00 AM NAA Merida [facility] URO MAB MAB 12/02/2024 2:00 PM Bossman Huffman MD [facility] MARIANGEL MAB MAB 02/25/2025 10:50 AM Bruno Gonzalez MD KTSP HOX HOX Kenyetta Hartman, MS-4 [facility] SHAY PLATA MD 11/02/2024 12:50 PM Cosigned [...] up appointments. Diet: Regular diet Drain/Dressing/Wound Care: Tieton will be removed in clinic approximately 3-4 [...] kept under 2 gm/day. Please discuss withyour freight coordinator if you have any question about appropriate dose to take. Other Instructions: Call post-liver transplant clinic with questions [phone] or call [facility] at [phone] and ask for the liver quality assurance coordinator association executive if you experience any of the following: [...] Center 11/04/2024 8:40 AM [facility] LTRA HOX HOX 11/04/2024 10:10 AM LTRA HEPATORENAL HOX LTRA HOX HOX 11/25/2024 9:00 AM NAA Merida [facility] URO MAB MAB 12/02/2024 2:00 PM Bossman Huffman MD [facility] MARIANGEL MAB MAB 02/25/2025 10:50 AM [...] AM EDT 10/17/2024 naloxone (NARCAN) 4 mg/actuation Spade Apply 1 spray in one nostril if [...] 11/02/2024 5 blood sugar diagnostic (GLUCOSE BLOOD) Strp Use to test blood sugar up to 4 times a day. 100 strip 11 11/02/2024 10:20 AM EDT 10/27/2024 5 blood-glucose meter (TRUE METRIX GLUCOSE METER) Misc [...] EDT 10/27/2024 5 lancets (ACCU-CHEK SOFTCLIX LANCETS) [facility] Use to test blood sugar up to 4 times a day. 100 each 11 11/02/2024 10:20 AM EDT 10/27/2024 5 linezolid (ZYVOX) 600 mg tablet Take 1 tablet (600 mg total) by mouth 2 times a day. 28 tablet 11/02/2024 3:06 PM EDT 11/02/2024 5 methocarbamoL (ROBAXIN) 500 MG tablet Take [...] tacrolimus and mycophenolate which were dispensed through [facility] per insurance requirements. Patient's confirms [...] fair Expected caregiver involvement?: is primary med hourly manager Need for additional education in clinic?: routine reinforcement only Future medications to be obtained from, if known (select one): Tac/MMF to be filled from [facility] Financial concerns (if any): [...] Disp-15 mL, R-2 lancets (ACCU-CHEK SOFTCLIX LANCETS) [facility] Use to test blood sugar up to 4 times a day., Starting Sun10/27/2024, Normal, Disp-100 each, R-11 linezolid (ZYVOX) 600 mg tablet Take 1 tablet (600 mg total) by mouth 2 times a day., Starting Sun11/02/2024, Normal, Disp-28 tablet, R-0 NIFEdipine (PROCARDIA-XL) 30 MG (OSM) 24 hr tablet Take 1 tablet (30 mg total) by mouth daily., Starting 11/02/2024, Normal, Disp-30 tablet, R-0 pen needle, diabetic [...] Disp-30 tablet, R-0 naloxone (NARCAN) 4 mg/actuation Spade Apply 1 spray in one nostril if [...] Solid Organ Transplant Clinical Specialist Contact via [employer] Secure Chat * Froylan Hendrickson MD - 11/01/2024 8:04 AM EDT Liver Transplant Surgery Progress Note Name: Blair Gilbert CSN: [id number] Date: 11/01/2024 8:06 AM OR Date: 10/25/2024 [...] at 10/31/2024 4:38 PM EDT US Duplex Qsp-Azz-Uqtmkzd Comp Result Date: 10/31/2024 IMPRESSION: RIGHT UPPER [...] 10/25/2024 - 10/27/2024. Plan: Liver transplant recipient ([facility]) [Z94.4] Neuro: - Multimodal pain control: tylenol, [...] 3:24 PM EDT TXP - Follow Up [facility] Medical Nutrition Therapy Transplant Brief Note Diet Order/Nutrition Support: Diet/Nutrition Orders Diet Regular(7) high calorie 3000 kcal a day Frequency: Effective Now Number of Occurrences: Until Specified Order Questions: Additional restrictions: high calorie 3000 kcal a day Suicide/Behavior Risk Modification? No Dietary nutrition supplements Frequency: TID Number of Occurrences: Until Specified Order Questions: Select Supplement: Boost VHC- very high calorie protein supplement ([facility] only) Pertinent Information: Pt seen for brief [...] Based on DBW of 93.1 kg Kcals/day: 7973-2776 (25-30 kcals/kg) Protein g/day: 140-190 (1.5-2.0 g/kg) [...] Keon Dobson - 10/31/2024 2:35 PM EDT [facility] Spiritual Care Volunteer Visit PATIENT NAME: Blair Gilbert ROOM:80/U8025 Orthodox Affiliation:Jain Blair Gilbert was visited by a volunteer today. No needs requiring a visit from a staff dispenser operator were expressed at that time. Care Provided: Communion, Prayer/ blessing Please page our service at [phone] as needs arise for patient and/or family. Fr Dean Dobson Jain dispenser operator Spiritual Care Dept * Brittany Horne PT - 10/31/2024 1:42 PM EDT Physical Therapy Reason Patient Not Seen Name: Blair Carringtonen : 1985 Attending Physician: Lydia Sanchez MD Admission Diagnosis: Liver transplant recipient (CMS-HCC) [Z94.4] Date: 10/31/2024 Precautions: Precautions: none Reviewed Pertinent hospital course: Yes Unable to see patient due to: Patient politely declining therapy at this time. Will follow-up with patient as medically appropriate and as schedule permits. Time Attempted: 1338 * Shanel Gordy - 10/31/2024 12:14 PM EDT Occupational Therapy [...] issued by OT: Long-handled sponge, Sock aid, Sole Leather Cutting Machine Operator, Other (comment) Equipment issued by OT comment: leg armorer technician Assessment Assessment: Decreased ADL status, Decreased IADLs, [...] IADL task (Goal met and continued 10/31) Exchange Underwriting Consultant Goal : Pt will complete bathing assessment and transfer [facility] goal to be met in: 2 weeks [...] bacterial peritonitis) ([facility]-H[facility]) C Diff Diarrhea C. difficile diarrhea Neck [...] 0659 10/31/24 07 - 11/01/24 0659 Shift 3127-8058 5171-4320 7489-0826 24 Hour Total 8267-7487 7808-4971 1179-6278 24 Hour Total INTAKE P.O. 240 240 P.O. 240 240 Shift Total(mL/kg) 240(1.9) 240(1.9) OUTPUT Urine(mL/kg/hr) 1850(1.8) 600(0.6) 600(0.6) 3050(1) 350 350 Urine 800 260 241 7850 350 350 Urine Occurrence 2 x 2 [...] with further concerns Lavell Kramer MD 10/31/[phone] * Priti Geiger CNP - 10/31/2024 10:06 AM EDT Liver Transplant Surgery Progress Note Name: Blair Gilbert CSN: [id number] Date: 10/31/2024 10:06 AM OR Date: 10/25/2024 [...] 10/28/24 1109 LACTATE 0.3* Imaging US Duplex Thp-Cjx-Kbzgkxk Comp Result Date: 10/28/2024 IMPRESSION: ABDOMINAL ULTRASOUND [...] 10/25/2024 - 10/27/2024. Plan: Liver transplant recipient ([facility]) [Z94.4] Neuro: - Multimodal pain control: tylenol, [...] Transplant Nephrology Progress Note Patient: Blair Gilbert [id number] 8025/U8025 Date of Admit: 10/25/2024. LOS: 6 [...] CKD IIIb/IV: - Presumed s/t HRS - Hatchery Attendant: Yovanny Curran at [facility] Allograft Function: S/p SLK 10/25- (kidney [...] 10/27/2024 PCO2 35 10/27/2024 PO2ART 92 10/27/2024 WIZ0JDA 21 (L) 10/27/2024 BEART -4.6 (L) 10/27/2024 NUX8JXW 95.4 10/27/2024 C3YYRKBC 98 10/27/2024 Hemodynamics / Cardiovascular Status: Goal [...] % Iron Saturation: SEE COMMENT on 10/25/2024 RoskazkO15: No results found for requested labs within [...] preliminary until attending attestation. Lauren Santos, SAMSON, GRINDER BRAKE LINING, RN MDS COORDINATOR- Transplant Nephrology [phone] Preferred contact: secure chat The HPI, ROS, [...] shifts: Date 10/29/24 07 - 10/30/24 0659 10/30/24699 - 10/31/24 0659 Shift 2826-8146 3906-4883 3666-6742 24 Hour Total 0195-2126 9941-8834 7454-1986 24 Hour Total INTAKE P.O. 240 240 480 P.O. 240 240 480 IV Piggyback 87.2 87.2 Volume (mL) (micafungin (MYCAMINE) 50 mg in sodium chloride 0.9 % 100 mL Ubvi5Tvm IVPB) 87.2 87.2 Shift Total(mL/kg) 240(2) 327.2(2.7) 567.2(4.4) OUTPUT Urine(mL/kg/hr) 600(0.6) 1175(1.2) 450(0.4) 2225(0.7) 550 550 Output (mL) (IUC (Berkowitz) Triple-lumen (3-Way) 18 Fr.) 600 6194 029 2008 550 550 Drains 175 245 100 520 [...] month of prophylaxis Lavell Kramer MD 10/30/[phone] * Priti Geiger CNP - 10/30/2024 10:36 AM EDT Liver Transplant Surgery Progress Note Name: Blair Gilbert CSN: [id number] Date: 10/30/2024 10:37 AM OR Date: 10/25/2024 [...] 1109 LACTATE 0.5 0.3* Imaging US Duplex Lqo-Oye-Yucwxpb Comp Result Date: 10/28/2024 IMPRESSION: ABDOMINAL ULTRASOUND [...] 10/25/2024 - 10/27/2024. Plan: Liver transplant recipient ([facility]) [Z94.4] Neuro: - Multimodal pain control: tylenol, [...] Transplant Nephrology Progress Note Patient: Blair Gilbert [id number] 8025/U8025 Date of Admit: 10/25/2024. 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 Lauren Santos, SAMSON, GRINDER BRAKE LINING, RN MDS COORDINATOR- Transplant Nephrology [phone] Preferred contact: secure chat The HPI, ROS, [...] EDT Pt seen, examined, and discussed with CENTRAL STORES ATTENDANT on 10/30/2024. reviewed the chart including the labs and imaging studies. My additional comments below. 39 y.o. 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 S/p SLK 10/25-10/26 Good uop Mild MA, will monitor for now for needs of po bicarb Aaron Gonzalez MD, MEd, FASN * Ben Weiss, RD - 10/29/2024 3:36 PM EDT TXP - Follow Up [facility] Nutrition Therapy Follow-Up Diet Order/Nutrition Support: [...] Based on DBW of 93.1 kg Kcals/day: 8623-3350 (25-30 kcals/kg) Protein g/day: 140-190 (1.5-2.0 g/kg) [...] Dietitian - Solid Organ Transplant Contact via [employer] Chat * Anita Crystal, PT - 10/29/2024 2:04 PM EDT Physical Therapy Initial Assessment Name: Blair Gilbert : 1985 Attending Physician: Semaj Mcnair III, MD Admission Diagnosis: Liver transplant recipient (CMS-HCC) [Z94.4] Date: 10/29/2024 Room: [place] [address] [address] Reviewed Pertinent hospital course: Yes Hospital Course [...] with functional mobility at: 4/10 or less Exchange Underwriting Consultant Goal : Pt will ambulate 250' mod [...] EDT Occupational Therapy Initial Assessment Name: Blair Justin : 1985 Attending Physician: Semaj Mcnair III, MD Admission Diagnosis: Liver transplant recipient ([facility]) [Z94.4] Date: 10/29/2024 Room: [place] [address] [address] Reviewed Pertinent hospital course: Yes Hospital Course [...] Intervention(s): Ambulation/increased activity;Repositioned Therapist reported pain to: television script writer Oxygen Supplemental Oxygen Supplemental Oxygen: None (Room [...] distance ambulation in prep for IADL task Exchange Underwriting Consultant Goal : Pt will complete bathing assessment and transfer [facility] goal to be met in: 2 weeks [...] OT Time Start Time: 0849 Stop Time: 927 Time Calculation (min): 39 [...] Decompensated cirrhosis ([facility]) Acute kidney injury superimposed on CKD ([facility]) Alcohol use disorder Metabolic encephalopathy Hypertension Other hyperlipidemia Thrombocytopenia ([facility]) Renal mass, left Abdominal pain Hypokalemia CKD (chronic kidney disease) stage 4, GFR 15-29 ml/min ([facility]) Metabolic acidosis with normal anion gap and bicarbonate losses GERD (gastroesophageal reflux disease) Hypothyroidism Itching Anemia BRBPR (bright red blood per rectum) SBP (spontaneous bacterial peritonitis) ([facility]) C Diff Diarrhea C. difficile diarrhea Neck pain with history of cervical spinal surgery * Caron Santos CNP - 10/29/2024 10:30 AM EDT Images from the original note were not included. Transplant Nephrology Progress Note Patient: Blair Gilbert [id number] SICU-28/USIC-28 Date of Admit: 10/25/2024. 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 - Avoid nephrotoxins (NSAIDs, INKKI-I, ARB, Contrast dye) - Monitor renal panel [...] preliminary until attending attestation. Lauren Santos, DNP, GRINDER BRAKE LINING, RN MDS COORDINATOR- Transplant Nephrology [phone] Preferred contact: secure chat The HPI, ROS, [...] EDT Pt seen, examined, and discussed with CENTRAL STORES ATTENDANT on 10/29/2024. reviewed the chart including the labs and imaging studies. My additional comments below. 39 y.o. 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 Plan: Liver transplant recipient ([facility]) [Z94.4] Neuro: - Multimodal pain control: tylenol, [...] mg BID PPX: SQH, SCDs DISPO: floor KENYETTAOlga HARTMAN, MS4 [facility] Surgery 10:08 AM 10/29/2024 Cosigned by [...] last 3 shifts: Date 10/28/24 07 - 10/29/2465810/29/24 07 - 10/30/24 0659 Shift 0542-4365 2549-3639 5643-1010 24 Hour Total 1183-5479 1320-5748 4875-6785 24 Hour Total INTAKE P.O. 240 0 [...] IV infusion) 253.9 374.7 775.6 1404.2 Blood 5164 620 1171 Albumin 750 750 Volume (Transfuse RBC Transfusion Rate: Per dept routine) 310 310 Volume (Transfuse RBC Transfusion Rate: Per dept routine) 271 271 IV Piggyback 918.4 713 23 3187.4 Volume (mL) (micafungin (MYCAMINE) 50 mg in sodium chloride 0.9 % 100 mL Tohf7Gab IVPB) 99.9 99.9 Volume (mL) (albumin human [...] month of prophylaxis Lavell Kramer MD 10/29/[phone] * John Moreno MD - 10/29/2024 6:47 AM EDT SURGICAL ICU PROGRESS NOTE 10/29/2024 6:47 AM Name: Blair Gilbert CSN: [id number] HPI: Blair Gilbert is a 39 y.o. [...] to 4 times a day. DEXCOM G7 CABLE SPOOLER Misc Use reader as directed. DEXCOM G7 [...] and at bedtime. lancets (ACCU-CHEK SOFTCLIX LANCETS) [facility] Use to test blood sugar up to 4 times a day. methocarbamoL (ROBAXIN) 500 MG tablet Take 1 tablet (500 mg total) by mouth 3 times a day. naloxone (NARCAN) 4 mg/actuation Spade Apply 1 spray in one nostril if [...] 37 37 35 PO2ART 245* 182* 92 VMI7BDN 22 21* 21* BEART -4.2* -4.8* -4.6* [...] at baseline or with provocation, shows no eymlq-fh-ovbk atrial level shunt. - Pulmonary arteries: Systolic [...] Home pantoprazole 40mg daily, continue Last BM: FLOCCULATOR OPERATOR - suppository today Bowel regimen: Miralax [...] results for input(s): TEGANGLE , TEGKTIME , TTZPSSTV25 , TEGMAXAMPL , TEGRTIME , CBMZ in [...] in sodium chloride 0.9 % 100 mL Welc5Vvd IVPB 50 mg Every 24 hours 10/27/2024 -- Admin Instructions: PROTECT FROM LIGHT FLUSH LINE w/NSS PRIOR TO ADMINISTRATION Use Ockj9Qfi Adapter - Mix Thoroughly Before Administration Route: [...] BID Continuous Infusions: HYDROmorphone 6 mg/30 mL SEASONAL SALES ASSOCIATE norepinephrine 4 mcg/min (10/27/24 2318) sodium chloride [...] 10/27/24699 - 10/28/2465810/28/24699 - 10/29/24 0659 Shift 8473-4396 0005-9778 3746-2048 24 Hour Total 2902-9971 1448-1212 2891-8166 24 Hour Total INTAKE P.O. 0 120 [...] in sodium chloride 0.9 % 100 mL Kivt3Dqp IVPB) 100 100 Volume (mL) (albumin human 5%) 126 126 Volume (mL) (potassium chloride (KCl)/Sterile water 50 mL 20 mEq/50 mL IVPB 20 mEq) 100 100 Volume (mL) (AMPicillin 1 g in sodium chloride 0.9% 100 mL IVPB (Mmwp8Zjx)) 100.1 57 42.9 200 Volume (mL) (mycophenolate (CELLCEPT) 500 mg in dextrose 5% in water (D5W) 50 mL IVPB) 50 5.3 55.3 Shift Total(mL/kg) 2079.3(17) 1161(9.5) 787.3(6.4) 4027.6(32.9) OUTPUT Urine(mL/kg/hr) 2195(2.2) 1000(1) 900(0.9) 4095(1.4) 490 490 Urine 360 360 Output (mL) (IUC (Berkowitz) Triple-lumen (3-Way) 18 Fr.) 1835 6058 993 2338 490 490 Emesis/NG output 50 50 Drainage [...] month of prophylaxis Lavell Kramer MD 10/28/[phone] * Caron Santos CNP - 10/28/2024 9:00 AM EDT Images from the original note were not included. Transplant Nephrology Progress Note Patient: Blair Gilbert [id number] SICU-28/USIC-28 Date of Admit: 10/25/2024. 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 Lauren Santos, DNP, GRINDER BRAKE LINING, RN MDS COORDINATOR- Transplant Nephrology [phone] Preferred contact: secure chat The HPI, ROS, [...] EDT Pt seen, examined, and discussed with CENTRAL STORES ATTENDANT on 10/28/2024. reviewed the chart including the labs and imaging studies. My additional comments below. 39 y.o. 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 S/p SLK 10/25-10/26 Has great UOP 4.2L Aaron Gonzalez MD, MEd, FASN * Shay Plata MD - 10/28/2024 7:41 AM EDT Liver Transplant Surgery Progress Note Name: Blair Gilbert CSN: [id number] Date: 10/28/2024 11:05 AM OR Date: 10/25/2024 - 10/27/2024 Subjective: 1 Day Post-Op Received one unit pRBCs overnight On low dose levo this morning Increasing tachycardia Reports worsening pain, on SEASONAL SALES ASSOCIATE Tolerated sips of clears No nausea/vomiting, no [...] Oral BID Continuous: HYDROmorphone 6 mg/30 mL SEASONAL SALES ASSOCIATE norepinephrine Stopped (10/28/24 0637) sodium chloride 0.9 [...] 4.1* -- 4.5* Recent Labs 10/27/24 0816 10/27/24171210/28/24 0413 INR 1.2* 1.1 1.1 PROTIME 16.2* 15.2* 14.6 Recent Labs 10/27/24 17110/28/24 0005 10/28/24 0413 NA 142 144 142 [...] at 10/27/2024 10:38 AM EDT US Duplex Eam-Fnk-Akfuuyq Comp Result Date: 10/27/2024 IMPRESSION: RIGHT UPPER [...] 10/25/2024 - 10/27/2024. Plan: Liver transplant recipient ([facility]) [Z94.4] Neuro: - Multimodal pain control: dilaudid SEASONAL SALES ASSOCIATE, tylenol, robaxin. PRN dilaudid for breakthrough CV: [...] SICU SHAY PLATA MD, MS4 [facility] Surgery 11:05 AM 10/28/2024 Cosigned by [...] NOTE 10/28/2024 6:17 AM Name: Blair Gilbert [facility]: [id number] HPI: Blair Gilbert is a 39 y.o. [...] to 4 times a day. DEXCOM G7 CABLE SPOOLER Misc Use reader as directed. DEXCOM G7 [...] times a day. naloxone (NARCAN) 4 mg/actuation Spade Apply 1 spray in one nostril if [...] Oral BID Continuous: HYDROmorphone 6 mg/30 mL SEASONAL SALES ASSOCIATE insulin regular in 0.9 % sodium chloride [...] 37 37 35 PO2ART 245* 182* 92 TYS4RTP 22 21* 21* BEART -4.2* -4.8* -4.6* [...] at baseline or with provocation, shows no puskd-aa-jgeo atrial level shunt. - Pulmonary arteries: Systolic [...] while intubated,convert to PO today Last BM: FLOCCULATOR OPERATOR Bowel regimen: Miralax today, hold senna [...] ml IV Fluids: HYDROmorphone 6 mg/30 mL SEASONAL SALES ASSOCIATE insulin regular in 0.9 % sodium chloride, Last Rate: 2.5 Units/hr (10/27/241899) norepinephrine, Last Rate: 4 mcg/min (10/27/24 2318) sodium chloride 0.45% (1/2 NS), Last Rate: Stopped (10/27/24 1301) sodium chloride 0.9 %, Last Rate: Stopped (10/27/24 025) sodium chloride 0.9 %, Last Rate: 100 mL/hr (10/27/241899) sodium chloride 0.9 % sodium chloride 0.9 [...] no concerns - 3 day berkowitz - ok 10/30 - Makes urine at baseline - [...] results for input(s): TEGANGLE , TEGKTIME , AIKOZDXL85 , TEGMAXAMPL , TEGRTIME , CBMZ in [...] in sodium chloride 0.9% 100 mL IVPB (Navr5Ssc) (Completed) 1 g Every 6 hours scheduled 10/26/2024 10/28/2024 Admin Instructions: Dosage may need to be adjusted for renal dysfunction. Full dose is 1g IV q6h Use Xfom9Zve Adapter - Mix Thoroughly Before Administration Notes to Pharmacy: On order processing manager estimated creatinine clearance is 35.9 mL/min (A) [...] in sodium chloride 0.9 % 100 mL Lzju1Scj IVPB 50 mg Every 24 hours 10/27/2024 -- Admin Instructions: PROTECT FROM LIGHT FLUSH LINE w/NSS PRIOR TO ADMINISTRATION Use Buki7Kzk Adapter - Mix Thoroughly Before Administration Route: [...] Other (See Comments) Became Manic * CLARITA JonhsonT - 10/27/2024 1:38 PM EDT Caprini Risk [...] the Caprini Risk Score of 10 and [facility] transplant protocol, I recommend discharging on [...] care of the patient as needed. Hillary Fernandes, TaniD, BCTXP Solid Organ Transplant Clinical Specialist Contact via [employer] Secure Chat Preferred O. [phone] * Chinedu Almeida RRT - 10/27/2024 1:10 [...] Yes MD Order No SBT No Yes [place] Coma Scale > 8 Yes Lab Results Component Value Date PHART 7.36 10/27/2024 PCO2 37 10/27/2024 PO2ART 245 (H) 10/27/2024 HKP1YLI 22 10/27/2024 BEART -4.2 (L) 10/27/2024 VCR5AEO 96.5 10/27/2024 V5TZAJUS 100 10/27/2024 Based on this SBT assessment [...] Surgery Progress Note Name: Blair Gilbert CSN: [id number] Date: 10/27/2024 11:40 AM OR Date: 10/25/2024 - 10/27/2024 Subjective: * Day of Surgery * Remains intubated in SICU Sedated but appropriately nods to questions No acute distress Objective: BP 100/48 Pulse 89 Temp 99 ??F (37.2 ??C) ([place]) Resp 9 Ht 6' 4 (1.93 m) [...] at 10/27/2024 10:38 AM EDT US Duplex Xml-Fyx-Clunlvo Comp Result Date: 10/27/2024 IMPRESSION: RIGHT UPPER [...] 10/27/2024. Problem List[1] Plan: Liver transplant recipient ([facility]-H[facility]) [Z94.4] Neuro: - Propofol/fentanyl CV: - Wean [...] SQH, SCDs DISPO: SICU KENYETTA HARTMAN, MS4 [facility] General Surgery 11:40 AM 10/27/2024 [1] Patient Active Problem List Diagnosis Decompensated cirrhosis ([facility]-HCC) Acute kidney injury superimposed on CKD ([facility]-H[facility]) Alcohol use disorder Metabolic encephalopathy Hypertension Other hyperlipidemia Thrombocytopenia (CMS-HCC) Renal mass, left Abdominal pain Hypokalemia CKD (chronic kidney disease) stage 4, GFR 15-29 ml/min (CMS-HCC) Metabolic acidosis with normal anion gap and bicarbonate losses GERD (gastroesophageal reflux disease) Hypothyroidism Itching Anemia BRBPR (bright red blood per rectum) SBP (spontaneous bacterial peritonitis) ([facility]-H[facility]) C Diff Diarrhea C. difficile diarrhea Neck [...] NOTE 10/27/2024 7:16 AM Name: Blair Gilbert [facility]: [id number] HPI: Blair Gilbert is a 39 y.o. [...] times a day. naloxone (NARCAN) 4 mg/actuation Spade Apply 1 spray in one nostril if [...] fentanyl (SUBLIMAZE) IV infusion 150 mcg/hr (10/26/24 1780) insulin regular in 0.9 % sodium chloride 2.5 Units/hr (10/27/24 2536) norepinephrine 10 mcg/min (10/27/24 0706) propofol 30 [...] pH: (!) 7.32 (10/27/24 0013) PCO2: 37 (10/27/24 001) PO2: (!) 137 (10/27/2412) HCO3: (!) 20 (10/27/2412) Base Excess: (!) -6.4 (10/27/2412) SaO2: 100 (10/27/24 0013) Recent Labs 10/26/24 0610 10/26/24 1048 10/27/2412 PHART 7.27* 7.37 7.32* PCO2 47* 36 37 PO2ART 127* 91 137* PQH6XAQ 21* 22 20* BEART -5.4* -3.9* -6.4* [...] at baseline or with provocation, shows no jkhik-iy-bnqi atrial level shunt. - Pulmonary arteries: Systolic [...] IV pantoprazole while intubated, NPO Last BM: FLOCCULATOR OPERATOR Bowel regimen: Senna/Miralax when able Nausea: [...] 10/27/2024 0715 Gross per 24 hour Intake 85486.82 ml Output 7060 ml Net 6224.82 ml [...] results for input(s): TEGANGLE , TEGKTIME , ZMUXHCBX24 , TEGMAXAMPL , TEGRTIME , CBMZ in [...] 0008 10/26/24 2315 10/26/24 2214 10/26/24 2116 10/26/24200410/26/24 1658 10/26/24 1642 10/26/24 1206 10/26/24 1048 [...] in sodium chloride 0.9% 100 mL IVPB (Otsj3Ndh) 1 g Every 6 hours scheduled Admin Instructions: Dosage may need to be adjusted for renal dysfunction. Full dose is 1g IV q6h Use Nweb0Wpg Adapter - Mix Thoroughly Before Administration Notes to Pharmacy: On order processing manager estimated creatinine clearance is 35.9 mL/min (A) (based on SCr of 3.87 mg/dL (H)). Route: Intravenous Linked Group 1: Placed in And Linked Group cefTRIAXone (ROCEPHIN) 2 g in sodium chloride 0.9 % 100 mL Ygrq6Iea Continuous - One Step Medications Only 10/27/2024 [...] Solid Organ Transplant Clinical Specialist Contact via [employer] Secure Chat Preferred * Simeon Guzman RN [...] 10/26/2024 0725 Gross per 24 hour Intake 21957.32 ml Output 2075 ml Net 52678.32 ml Consitutional: Intubated/sedated HEENT: Mucous membranes moist [...] History and Physical Patient: Blair Gilbert CSN: [id number] History CC: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 naloxone (NARCAN) 4 mg/actuation Spade Apply 1 spray in one nostril if [...] Resource Strain: Low Risk (07/09/2024) Received from [facility] Overall Financial Resource Strain (CARDIA) Difficulty [...] No Physical Activity: Unknown (07/14/2024) Received from [facility] Exercise Vital Sign Days of Exercise per Week: Patient unable to answer Minutes of Exercise per Session: Not on file Stress: Patient Unable To Answer (07/14/2024) Received from [facility] [place] of Occupational Health - Occupational Stress Questionnaire Feeling of Stress : Patient unable to answer Social Connections: Patient Unable To Answer (07/14/2024) Received from [facility] Social Connection and Isolation Panel [NHANES] Frequency of Communication with Friends and Family: Patient unable to answer Frequency of Social Gatherings with Friends and Family: Patient unable to answer Attends Orthodox Services: Patient unable to answer Active Member [...] -- 5.4 ALBUMIN 3.2* 3.1* Invalid input(s): [facility] Other labs: Imaging Studies No results found. [...] SICU post-op. LEANDRA OG MD [facility] Surgery Liver Transplant Pager: [phone] 8:24 PM 10/25/2024 Cosigned by Semaj [...] Name: Blair Gilbert Date: 1985 Billing #: [id number] Date of Procedure: 10/25/2024 Diagnosis: End Stage Renal Disease Procedure: 1. Donor Kidney Transplant 2. Back Bench Preparation Donor Kidney 3. Baseline Kidney transplant biopsy 4. Insertion of Indwelling Stent 5. Removal of Perihepatic packing Surgeons * Flaquito Ba MD Multimedia Engineer MD Shayan Findings: Low Hockey stick [...] donor was ABO O and UNOS ID [id number], Match Run [id number] ([facility]). This donor was a Donor after cardiac [...] was then wanded with the lap detection engineering assistant. The incision was ex tented 2 [...] for the bile duct reconstruction and closure. Latifa A Jose Silski, MD Transplant Surgeon weight yardage checker * Flaquito Ba MD - 10/27/2024 6:15 AM EDT TRANSPLANT KIDNEY with bile duct reconstruction Brief Op Note Blair Gilbert 10/27/2024 Pre-op Diagnosis: Acute kidney injury superimposed on CKD (CMS-HCC) [N17.9, N18.9] Post-op Diagnosis: same Procedure(s): TRANSPLANT KIDNEY Surgeon(s): MD Semaj Washington III, MD Anesthesia: General Endotracheal Staff: Email Campaign Specialist: Chinedu Quinn RN Scrub Person: ST Angela Fellow: Kemar Sahni MD 2nd Email Campaign Specialist: Marty Clark RN 3rd Email Campaign Specialist: Candis Mcdaniel RN FINDINGS Berkowitz 3 day Drains: Intraabdominal (perihepatic) UNOS ID [id number], Match Run [id number] Kid WIT 27 min Kid CIT 33 [...] (Berkowitz) Triple-lumen (3-Way) 18 Fr. (Active) Status [place] Drainage 10/26/241999 Collection Container Standard drainage bag [...] Washington III, MD Anesthesia: General Endotracheal Staff: Email Campaign Specialist: Chinedu Quinn RN Relief Email Campaign Specialist: Michela Amos RN Relief Scrub: Stephani Blake RN Scrub Person: ST Angela Fellow: Kemar Sahni MD 2nd Email Campaign Specialist: Marty Clark RN 3rd Email Campaign Specialist: Candis Mcdaniel RN Estimated Blood Loss: 300 [...] Clean;Dry;Intact 10/26/241999 Output (mL) 150 mL 10/26/24 220 Drainage Appearance Bile;Brown 10/26/241999 Number of days: 1 Drain Abdomen Inferior;Right (Active) Number of days: 0 IUC (Berkowitz) Triple-lumen (3-Way) 18 Fr. (Active) Status [place] Drainage 10/26/241999 Collection Container Standard drainage bag [...] day Drains: 2 Intraabdominal (perihepatic) UNOS ID [id number], Match Run [id number] Donor: young DCD NRP Kid WIT 27 [...] III, MD - 10/27/2024 12:00 AM EDT [facility] PATIENT NAME: BLAIR GILBERT DATE OF : 1985 CSN: [id number] PHYSICIAN: Semaj Mcnair III, MD ADMIT DATE: 10/25/2024 DICTATED BY: Semaj Mcnair III, MD SURGERY DATE: 10/27/2024 OPERATIVE REPORT SURGEON: Semaj Mcnair III, MD PUMP ROOM OPERATOR SURGEON: Kemar Sahni MD. PREOPERATIVE DIAGNOSIS: [...] were made hemostatic with the argon beam binding printer. We assessed the flows of the portal [...] a mucocele formation. We then performed a xutj-st-ywsn choledochocholedochostomy in an end to end fashion [...] small umbilicalhernia that was closed with a furgld-vx-uwvwu 0 PDS suture. At this point, we [...] complications. SEMAJ MCNAIR III, MD RCQ/AQ JOB#: [id number] * Semaj Mcnair III, MD - 10/26/2024 7:00 AM EDT Patient Name: Blair Gilbert Date: 1985 Billing #: [id number] Date of Procedure: 10/25/2024 - 10/26/2024 Diagnosis: Chronic Hepatic Failure without coma Procedure: 1. Orthotopic Liver Transplant 2. Back Bench Preparation Donor Liver 3. Temporary portocaval shunt 4. Perihepatic packing for control of hemorrhage 5. Placement of external choledochal stent 6. Temporary abdominal closure Attending surgeons: Semaj Mcnair III, MD Multimedia Engineer Surgeon(s): Sveta Judge MD Findings: Whole organ placed in piggyback fashion with suprahepatic cava of donor to common orifice of all three hepatic veins for IVC anastomosis. Donor main portal vein to recipient main portal vein. Donor common hepatic artery to recipient right hepatic artery. Temporary abdominal with perihepatic packingfor control of hemorrhage. Externalization of bile duct with 8 Mohawk pediatric feeding tube. Portal Flow Modulation No [...] This donor was ABO O and UNOSID [id number], Match Run [id number]. This was a 42-year-old donation after circulatory [...] artery flows were then measured with the [employer] [place] device. The portal flow was 3.4 L/min [...] do a temporary abdominal closure. An 8 Mohawk pediatric feeding tube was brought through the [...] Sveta Alves III, MD Anesthesia: General Staff: Email Campaign Specialist: Mak Maher RN; Marty Clark RN Scrub Person: ST Angela Resident: Thuy Leon MD red cross worker: Jose Daniel Arana, RONALDO Estimated Blood Loss: [...] Number of days: 5 Surgery Information: -UNOS#: [id number] -ABO: O to O -Recipient: SLK candidate [...] 1:19 PM EDTAssociated Order(s): IP CONSULT TO SECURITY DOOR INSTALLER [facility] Transplant Discharge Education Note Assessment: Received referral [...] Gomez, MSN, RN, NPD- Diabetes Education Office [phone] Schedule: M-F 8:00am-4:30pm * Ben Weiss, RD - 10/27/2024 4:06 PM EDTAssociated Order(s): IP CONSULT TO NUTRITION SERVICES; IP CONSULT TO NUTRITION SERVICES TXP - Initial [facility] Medical Nutrition Therapy Reason(s) for Completion: Physician/Nursing [...] I/O: +23.2L net volume. Last BM Date: (FLOCCULATOR OPERATOR). Admit Weight: 270 lb (122.5 kg) [...] Based on DBW of 93.1 kg Kcals/day: 3259-5423 (25-30 kcals/kg) Protein g/day: 140-190 (1.5-2.0 g/kg) [...] Dietitian - Solid Organ Transplant Contact via [employer] Chat * Lavell Kramer MD - 10/27/2024 11:09 AM EDTAssociated Order(s): INPATIENT CONSULT TO TRANSPLANT INFECTIOUS DISEASES Infectious Disease Consultation Patient: Blair Gilbert CSN: [id number] Assessment & Plan 39 y.o. M s/p [...] blood cx's if febrile Lavell Kramer MD [phone] Chief Complaint Long Qtc History of Present [...] Resource Strain: Low Risk (07/09/2024) Received from [facility] Overall Financial Resource Strain (CARDIA) Difficulty of [...] No Physical Activity: Unknown (07/14/2024) Received from [facility] Exercise Vital Sign Days of Exercise per Week: Patient unable to answer Minutes of Exercise per Session: Not on file Stress: Patient Unable To Answer (07/14/2024) Received from [facility] [place] of Occupational Health - Occupational Stress Questionnaire Feeling of Stress : Patient unable to answer Social Connections: Patient Unable To Answer (07/14/2024) Received from [facility] Social Connection and Isolation Panel [NHANES] Frequency of Communication with Friends and Family: Patient unable to answer Frequency of Social Gatherings with Friends and Family: Patient unable to answer Attends Orthodox Services: Patient unable to answer Active Member [...] to 4 times a day. DEXCOM G7 CABLE SPOOLER Misc Use reader as directed. DEXCOM G7 [...] FLEXTOUCH U-100 INSULIN) 100 unit/mL (3 mL) In Administer insulin with meals per sliding [...] times a day. naloxone (NARCAN) 4 mg/actuation Spade Apply 1 spray in one nostril if [...] CKD IIIb/IV: - Presumed s/t HRS - Hatchery Attendant: Yovanny Curran at [facility] Allograft Function: S/p SLK 10/25- (kidney [...] 10/27/2024 1500 Gross per 24 hour Intake 49223.28 ml Output 5950 ml Net 6403.28 ml Heme/Anemia: WBC: 5.8 Goal HgB 10-12 mg/dL Hgb: 7.5 Plt 50 Iron: 128 on 10/25/2024 Ferritin 623.2 on 10/25/2024 TIBC: SEE COMMENT on 10/25/2024 % Iron Saturation: SEE COMMENT on 10/25/2024 EempkfvZ74: No results found for requested labs within [...] - Monitor renal function. No indications for FREEZER WORKER. Good UOP - Noted KT US WNL [...] preliminary until attending attestation. Lauren Santos, SAMSON, GRINDER BRAKE LINING, RN MDS COORDINATOR- Transplant Nephrology [phone] Preferred contact: secure chat [1] Allergies Allergen [...] Gonzalez MD, MEd, FASN * Marcellus Hebert, CONCRETE PAVER, DIESEL LOCOMOTIVE ENGINEER - 10/27/2024 10:21 AM EDT HEALTH Care Management/Social Work Assessment Patient Information Patient Name: Blair Gilbert Hospital Day: 2 Inpatient/Observation: Inpatient Admit Date: 10/25/2024 Admission Diagnosis: Liver transplant recipient (CMS-HCC) [Z94.4] Attending provider: Semaj Mcnair III, MD PCP: Enedina Mcguire NP Home Pharmacy: [facility] [address] [place] [address] [facility] [address] [facility] [address] Issues related to obtaining medications: N/A Payor Information Medical Insurance Coverage: Payor: [facility] / Plan: [facility] GLOBAL / Product Type: *No Producttype* [...] History: 12 weeks of CD Treatement at [facility] Do you need Substance Abuse Treatment [...] Was any abuse reported by patient?: No [place] Status & Connection to [facility] Services [place] Status & Connection to [facility] Services Are [...] spouse at their one story home in [place]. 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 Patient's LNOK:Spouse, Abdiaziz Gilbert, Patient has no current or past history of suicidal/homicidal ideation. Patient has a history of mental health diagnoses, PTSD and Generalized Anxiety Disorder. Patient is connected with TransplantPsychiatrist and prescribed Prozac. Patient has a history of alcohol use and has completed 12 weeksof CD Treatment at [facility]. Spouse explained that he will complete a 6 month virtual program post transplant but could not recall the name of the program. Patient has no current tobacco use. No previous need or recommendation for home health care services and no previous placements at assisted facility and/or inpatient rehab program. Patient has [...] as appropriate. NUBIA Escalera, RONALDO Phone Number: [phone] * John Moreno MD - 10/26/2024 3:41 AM EDT SURGICAL ICU CONSULT NOTE 10/26/2024 3:41 AM Name: Blair Gilbert CSN: [id number] HPI: Blair Gilbert is a 39 y.o. [...] at 9:00 PM naloxone (NARCAN) 4 mg/actuation Spade Apply 1 spray in one nostril if [...] % sodium chloride norepinephrine 18 mcg/min (10/26/24 2433) vasopressin 0.04 Units/min (10/26/24 0244) PRN Meds: [...] input(s): PHART , PCO2 , PO2ART , MDS8HNL , BEART in the last 72 hours. [...] at baseline or with provocation, shows no ugwmz-in-ikiv atrial level shunt. - Pulmonary arteries: Systolic [...] IV pantoprazole while intubated, NPO Last BM: FLOCCULATOR OPERATOR Bowel regimen: Senna/Miralax when able Nausea: Zofran PRN FLUID/ELECTROLYTES Recent Labs 10/25/242216 NA 137 K 2.1* CL 100 CO2 20* BUN 74* CREATININE 3.87* CALCIUM 9.3 PHOS 5.9* GLUCOSE 114* Intake/Output Summary (Last 24 hours) at 10/26/2024 0341 Last data filed at 10/26/2024 0326 Gross per 24 hour Intake 34265 ml Output 675 ml Net 72273 ml IV Fluids: EPINEPHrine (ADRENALIN) 10 mg in sodium chloride 0.9 % 250 mL infusion, Last Rate: 2.5 mcg/min (10/26/249) insulin regular in 0.9 % sodium chloride [...] results for input(s): TEGANGLE , TEGKTIME , OCFGLVPZ31 , TEGMAXAMPL , TEGRTIME , CBMZ in [...] in sodium chloride 0.9% 100 mL IVPB (Abeo3Pjl) 2 g Every 6 hours 10/26/2024 -- Admin Instructions: Use Mypm0Ajc Adapter - Mix Thoroughly Before Administration Notes to Pharmacy: On order processing manager estimated creatinine clearance is 35.9 mL/min (A) (based on SCr of 3.87 mg/dL (H)). Route: Intravenous AMPicillin 2 g in sodium chloride 0.9% 100 mL IVPB (Libf1Gqb) 2 g Once 10/26/2024 -- Admin Instructions: Use Auno9Bsb Adapter - Mix Thoroughly Before Administration Notes to Pharmacy: On order processing manager estimated creatinine clearance is 35.9 mL/min (A) (based on SCr of 3.87 mg/dL (H)). Route: Intravenous cefTRIAXone (ROCEPHIN) 2 g in sodium chloride 0.9 % 100 mL Gzzn1Zly (Completed) 2 g Once 10/25/2024 10/26/2024 Admin Instructions: Use Ytaa1Lgm Adapter - Mix Thoroughly Before Administration Route: [...] 47 (H) 10/26/2024 PO2ART 127 (H) 10/26/2024 HGH3ALM 21 (L) 10/26/2024 BEART -5.4 (L) 10/26/2024 OZO9UEB 94.6 (L) 10/26/2024 E5JJXQZQ 98 10/26/2024 P:F ratio = 363 CARDIOVASCULAR: [...] Acute Care Surgery, and Surgical Critical Care [facility] Academic Office [phone] For Transfers, call [phone] documented in this encounter Nursing Notes * [...] Progressing * Care Coordination - NUBIA Escalera, DIESEL LOCOMOTIVE ENGINEER - 10/31/2024 11:34 AM EDT [facility] Case Management/Social Work Department Progress Note [...] disease. PCP: Enedina Mcguire NP Home Pharmacy: [facility] [address] [place] [address] [facility] [address] [facility] [address] [facility] [place] - [address] [facility] [place] [id number] Medical Insurance Coverage: Payor: [facility] / Plan: [employer] / Product Type: *No Product type* / Other Pertinent Information SW received report from Transplant medical team. SW completed chart review. Per report patient is not medically ready to discharge. Patient recommended for home PT/OT and 2x weekly labs. SW followed up on C referrals and submitted a few more C referrals. Update: SW made nurse educator aware that there were no accepting [facility] agencies([facility], [facility], [facility]) and patient would need to outpatient for PT/OT and labs. Discharge Plan Anticipated discharge plan: Home with HHC vs Home with outpatient Anticipated discharge date: 11/01 CM/SW will continue to follow and remain available for discharge planning needs. NUBIA Escalera, RONALDO Qgap [phone] * Plan of Care - Paulette Flannery [...] Citlaly Nova - 10/29/2024 1:53 PM EDT [facility] Case Management/Social Work Department Progress Note [...] disease. PCP: Enedina Mcguire NP Home Pharmacy: [facility] [address], [facility] [address] [address] [facility] [address] [facility] [address] [facility] [place] - [address] [place] [address] [place] [id number] Medical Insurance Coverage: Payor: [facility] / Plan: [employer] [...] SW submitted blanket HHC referral to [facility], [facility] [place], [facility], and [facility]. Awaiting responses. SW to followpending clearance [...] available for discharge planning needs. Citlaly Nova, CONCRETE PAVER, DIESEL LOCOMOTIVE ENGINEER Inpatient Trolley Collector/Care Coordination [phone] * Plan of Care - Soco Yap [...] Escalera, RONALDO - 10/28/2024 2:29 PM EDT [facility] Case Management/Social Work Department Progress Note Patient Information Patient Name: Blair Gilbert Hospital day: 3 Inpatient/Observation: Inpatient Level of Care: Transplant Admit date: 10/25/2024 Admission diagnosis: Liver transplant recipient (CMS-HCC) [Z94.4] PMH: has a past medical history of Alcoholic cirrhosis of liver (CMS-HCC), Esophageal varices (CMS-HCC), Hepatorenal syndrome (CMS-HCC), Hypertension, Other hyperlipidemia (07/26/2024), Renal cell carcinoma ([facility]), Thrombocytopenia ([facility]), and Thyroid disease. PCP: Enedina Mcguire NP Home Pharmacy: [facility] [address] [place] [address] [place] [address] [facility] [address] [facility] [address] [facility] [place], [place] - [address] [place] [address] [facility] [id number] Medical Insurance Coverage: Payor: [facility] / Plan: [facility] / Product Type: *No Product [...] discharge planning needs. NUBIA Escalera, RONALDO Cell [phone] * Plan of Care - Elaine Carrillo [...] at all times. Outcome: Completed Problem: Non-violent, zmf-vfdm-crmlwaysfzg restraints Description: Less restrictive alternative interventions will [...] of medical procedures, or protection of medical apparatus model maker access. Outcome: Completed * Plan of Care [...] foods as appropriate. Outcome: Progressing Problem: Non-violent, okq-pwbf-xxzivsfggfv restraints Description: Less restrictive alternative interventions will [...] of medical procedures, or protection of medical apparatus model maker access. Outcome: Progressing * Plan of Care - Shanel Shen RN - 10/27/2024 9:00 AM EDT Problem: Non-violent, lhz-rssu-ppwikpanuky restraints Description: Less restrictive alternative interventions will [...] - 10/26/2024 7:41 PM EDT Problem: Non-violent, suv-muwc-ymqqzpfmmxk restraints Description: Less restrictive alternative interventions will [...] of medical procedures, or protection of medical apparatus model maker access. Outcome: Not Progressing Patient in bilateral [...] restraint flowsheet for further documentation. Problem: Non-violent, [id number] restraints Description: Less restrictive alternative interventions will [...] of medical procedures, or protection of medical apparatus model maker access. Outcome: Progressing * Plan of Care [...] Routine Acute kidney injury superimposed on CKD ([facility]) Release Upon Ordering for 1 Occurrences starting 10/27/2024 Fungus culture Microbiology Routine Acute kidney injury superimposed on CKD ([facility]) Release Upon Ordering for 1 Occurrences starting 10/27/2024 Routine Culture plus Stain Microbiology Routine Acute kidney injury superimposed on CKD ([facility]) Release Upon Ordering for 1 Occurrences starting 10/27/2024 Surgical Pathology Exam Pathology and Cytology Routine Acute kidney injury superimposed on CKD ([facility]) Release Upon Ordering for [...] Routine 10/31/2024 11:59 AM EDT US DUPLEX [id number] COMPLETE Routine 10/31/2024 10:19 AM EDT US [...] Routine 10/28/2024 5:31 PM EDT US DUPLEX [id number] COMPLETE STAT 10/28/2024 4:23 PM EDT US [...] Routine 10/27/2024 10:00 AM EDT US DUPLEX [id number] COMPLETE STAT 10/27/2024 9:51 AM EDT US [...] Glucose Monitoring Device (11/02/2024 5:44 PM EDT) [facility] POC Glucose Monitoring Device 180(H) 70 - 100 mg/dL 11/02/2024 5:45 PM EDT [facility] Blood 11/02/2024 5:44 PM EDT 11/02/2024 5:45 PM EDT Semaj Mcnair III, MD POINT OF CARE TEST ORDERABLES Final Result [facility] [address] [address] * (ABNORMAL) POC Glucose Monitoring Device (11/02/2024 3:34 PM EDT) POC Glucose Monitoring Device 208(H) 70 - 100 mg/dL 11/02/2024 3:35 PM EDT [facility] Blood 11/02/2024 3:34 PM EDT 11/02/2024 3:35 PM EDT Semaj Mcnair III, MD POINT OF CARE TEST ORDERABLES Final Result Performing Organization Address City/[facility]/ZIP Co de Phone Number [address] * (ABNORMAL) POC Glucose Monitoring Device (11/02/2024 1:18 PM EDT) POC Glucose Monitoring Device 225(H) 70 - 100 mg/dL 11/02/2024 1:19 PM EDT [facility] Blood 11/02/2024 1:18 PM EDT 11/02/2024 1:19 PM EDT Semaj Mcnair III, MD POINT OF CARE TEST ORDERABLES Final Result [facility] [address]. [address] * (ABNORMAL) POC Glucose Monitoring Device (11/02/2024 8:59 AM EDT) POC Glucose Monitoring Device 129(H) 70 - 100 mg/dL 11/02/2024 9:00 AM EDT [facility] Blood 11/02/2024 8:59 AM EDT 11/02/2024 9:00 AM EDT Semaj Mcnair III, MD POINT OF CARE TEST ORDERABLES Final Result Performing Organization Address City/[facility]/ZIP Co de Phone Number [facility] [address] * Tacrolimus level (11/02/2024 5:53 AM EDT) Pathologist [facility] Tacrolimus (LC-MS) 7.4 3.0 - 15.0 ng/mL 11/02/2024 2:23 PM EDT [facility] Comment:Performed via liquid chromatography tandem mass spectrometry. Detection limit: 1 ng/mL. Individual target concentrations may vary due to target organ and time after transplant. This test has been developed and its performance characteristics determined by [facility] which is certified under the [...] City/[facility]/ZIP Co de Phone Number [facility] [address] [facility]. [address] * (ABNORMAL) Renal Function Panel w/EGFR (11/02/2024 5:53 AM EDT) Pathologist [facility] Sodium 140 133 - 146 mmol/L 11/02/2024 6:47 AM EDT [facility] Potassium 3.3(L) 3.5 - 5.3 mmol/L 11/02/2024 6:47 AM EDT [facility] Chloride 107 98 - 110 mmol/L 11/02/2024 6:47 AM EDT [facility] CO2 25 21 - 33 mmol/L 11/02/2024 6:47 AM EDT [facility] Anion Gap 8 3 - 16 mmol/L 11/02/2024 6:47 AM EDT [facility] BUN 31(H) 7 - 25 mg/dL 11/02/2024 6:47 AM EDT [facility] Creatinine 1.08 0.60 - 1.30 mg/dL 11/02/2024 6:47 AM EDT [facility] Glucose 150(H) 70 - 100 mg/dL 11/02/2024 6:47 AM EDT [facility] Calcium 7.8(L) 8.6 - 10.3 mg/dL 11/02/2024 6:47 AM EDT [facility] Phosphorus 2.0(L) 2.1 - 4.7 mg/dL 11/02/2024 6:47 AM EDT [facility] Albumin 3.2(L) 3.5 - 5.7 g/dL 11/02/2024 6:47 AM EDT [facility] Osmolality, Calculated 299 278 - 305 mOsm/kg 11/02/2024 6:47 AM EDT [facility] EGFR 88 11/02/2024 6:47 AM EDT [facility] Comment:As of 2021, the [...] 11/02/2024 6:12 AM EDT us Beata Horner [employer]OR[employer] ATTENDANT LAB BLOOD ORDERABLES Denisse valle Result [facility] [address] [place] [address], [facility] * (ABNORMAL) Magnesium (11/02/2024 5:53 AM EDT) Magnesium 1.3(L) 1.5 - 2.5 mg/dL 11/02/2024 6:47 AM EDT [facility] Plasma 11/02/2024 5:53 AM EDT 11/02/2024 6:12 AM EDT Beata Horner [facility] BLOOD ORDERABLES Denisse l Result Performing Organization Address [facility]/ZIP Co de Phone Number [facility] [address] [facility]. [address] * (ABNORMAL) Hepatic Function Panel (11/02/2024 5:53 AM EDT) Total Bilirubin 1.6(H) 0.0 - 1.5 mg/dL 11/02/2024 6:47 AM EDT [facility] Bilirubin, Direct 0.81(H) 0.00 - 0.40 mg/dL 11/02/2024 6:47 AM EDT [facility] AST 30 13 - 39 U/L 11/02/2024 6:47 AM EDT [facility] ALT 66(H) 7 - 52 U/L 11/02/2024 6:47 AM EDT [facility] Alkaline Phosphatase 126(H) 36 - 125 U/L 11/02/2024 6:47 AM EDT [facility] Total Protein 4.6(L) 6.4 - 8.9 g/dL 11/02/2024 6:47 AM EDT [facility] Albumin 3.2(L) 3.5 - 5.7 g/dL 11/02/2024 6:47 AM EDT [facility] Bilirubin, Indirect 0.79 0.00 - 1.10 mg/dL 11/02/2024 6:47 AM EDT [facility] Plasma 11/02/2024 5:53 AM EDT 11/02/2024 6:12 AM EDT Beata Horner CENTRAL [employer]ORES ATTENDANT LAB BLOOD ORDERABLES Denisse l Result [facility] [address] [facility]. [address] * (ABNORMAL) CBC (11/02/2024 5:53 AM EDT) WBC 5.8 3.8 - 10.8 10E3/uL 11/02/2024 6:21 AM EDT [facility] RBC 3.12(L) 4.20 - 5.80 10E6/uL 11/02/2024 6:21 AM EDT [facility] Hemoglobin 9.2(L) 13.2 - 17.1 g/dL 11/02/2024 6:21 AM EDT [facility] Hematocrit 27.5(L) 38.5 - 50.0 % 11/02/2024 6:21 AM EDT [facility] MCV 87.9 80.0 - 100.0 fL 11/02/2024 6:21 AM EDT [facility] MCH 29.5 27.0 - 33.0 pg 11/02/2024 6:21 AM EDT [facility] MCHC 33.5 32.0 - 36.0 g/dL 11/02/2024 6:21 AM EDT [facility] RDW 17.5(H) 11.0 - 15.0 % 11/02/2024 6:21 AM EDT [facility] Platelets 61(L) 140 - 400 10E3/uL 11/02/2024 6:21 AM EDT [facility] MPV 7.9 7.5 - 11.5 fL 11/02/2024 6:21 AM EDT [facility] Whole Blood 11/02/2024 5:53 AM EDT 11/02/2024 6:12 AM EDT us Beata Horner [employer]ORES ATTENDANT LAB BLOOD ORDERABLES Denisse l Result [facility] [address] [facility]. [address] * (ABNORMAL) POC Glucose Monitoring Device (11/01/2024 9:26 PM EDT) POC Glucose Monitoring Device 199(H) 70 - 100 mg/dL 11/01/2024 9:27 PM EDT [facility] Blood 11/01/2024 9:26 PM EDT 11/01/2024 9:27 PM EDT us Semaj Mcnair III, MD POINT OF CARE TEST ORDERABLES Final Result Performing Organization Address City/[facility]/ZIP Co de Phone Number [facility] [address] * (ABNORMAL) POC Glucose Monitoring Device (11/01/2024 5:04 PM EDT) POC Glucose Monitoring Device 255(H) 70 - 100 mg/dL 11/01/2024 5:05 PM EDT [facility] Blood 11/01/2024 5:04 PM EDT 11/01/2024 5:05 PM EDT us Semaj Mcnair III, MD POINT OF CARE TEST ORDERABLES Final Result Performing Organization Address [facility] de Phone Number [facility] [address] * (ABNORMAL) Renal Function Panel w/EGFR, STAT (11/01/2024 2:17 PM EDT) Sodium 139 133 - 146 mmol/L 11/01/2024 3:10 PM EDT [facility] Potassium 3.3(L) 3.5 - 5.3 mmol/L 11/01/2024 3:10 PM EDT [facility] Chloride 107 98 - 110 mmol/L 11/01/2024 3:10 PM EDT [facility] CO2 24 21 - 33 mmol/L 11/01/2024 3:10 PM EDT [facility] Anion Gap 8 3 - 16 mmol/L 11/01/2024 3:10 PM EDT [facility] BUN 35(H) 7 - 25 mg/dL 11/01/2024 3:10 PM EDT [facility] Creatinine 1.22 0.60 - 1.30 mg/dL 11/01/2024 3:10 PM EDT [facility] Glucose 203(H) 70 - 100 mg/dL 11/01/2024 3:10 PM EDT [facility] Calcium 8.3(L) 8.6 - 10.3 mg/dL 11/01/2024 3:10 PM EDT [facility] Phosphorus 2.2 2.1 - 4.7 mg/dL 11/01/2024 3:10 PM EDT [facility] Albumin 3.4(L) 3.5 - 5.7 g/dL 11/01/2024 3:10 PM EDT [facility] Osmolality, Calculated 302 278 - 305 mOsm/kg 11/01/2024 3:10 PM EDT [facility] EGFR 76 11/01/2024 3:10 PM EDT [facility] Comment:As of 2021, the [...] Marks MD LAB BLOOD ORDERABLES Final Result [facility] [address] [place] [address], [facility] * X-ray Portable Abdomen AP view [...] 11/01/2024 1:10 PM EDT Shay Plata MD G DIAGNOSTIC IMAGI NG ORDERABLES Final Result * (ABNORMAL) POC Glucose Monitoring Device (11/01/2024 12:22 PM EDT) POC Glucose Monitoring Device 144(H) 70 - 100 mg/dL 11/01/2024 12:23 PM EDT [facility] Blood 11/01/2024 12:2 2 PM EDT 11/01/2024 12:23 PM EDT Semaj Mcnair III, MD POINT OF CARE TEST ORDERABLES Final Result Performing Organization Address City/[facility]/ZIP Co de Phone Number [facility] [address] * (ABNORMAL) POC Glucose Monitoring Device (11/01/2024 8:50 AM EDT) POC Glucose Monitoring Device 175(H) 70 - 100 mg/dL 11/01/2024 8:51 AM EDT [facility] Blood 11/01/2024 8:50 AM EDT 11/01/2024 8:51 AM EDT Semaj Mcnair III, MD POINT OF CARE TEST ORDERABLES Final Result Performing Organization Address [facility] Co de Phone Number [facility] [address] [facility]. [address] * Tacrolimus level (11/01/2024 6:01 AM EDT) Tacrolimus (LC-MS) 7.5 3.0 - 15.0 ng/mL 11/01/2024 12:14 PM EDT [facility] Comment:Performed via liquid chromatography tandem mass spectrometry. Detection limit: 1 ng/mL. Individual target concentrations may vary due to target organ and time after transplant. This test has been developed and its performance characteristics determined by [facility] which is certified under the [...] Denisse l Result Performing Organization Address [facility] Co de Phone Number [facility] [address] * (ABNORMAL) Renal Function Panel w/EGFR (11/01/2024 6:01 AM EDT) Sodium 139 133 - 146 mmol/L 11/01/2024 6:57 AM EDT [facility] Potassium 3.3(L) 3.5 - 5.3 mmol/L 11/01/2024 6:57 AM EDT [facility] Chloride 108 98 - 110 mmol/L 11/01/2024 6:57 AM EDT [facility] CO2 22 21 - 33 mmol/L 11/01/2024 6:57 AM EDT [facility] Anion Gap 9 3 - 16 mmol/L 11/01/2024 6:57 AM EDT [facility] BUN 37(H) 7 - 25 mg/dL 11/01/2024 6:57 AM EDT [facility] Creatinine 1.30 0.60 - 1.30 mg/dL 11/01/2024 6:57 AM EDT [facility] Glucose 163(H) 70 - 100 mg/dL 11/01/2024 6:57 AM EDT [facility] Calcium 8.2(L) 8.6 - 10.3 mg/dL 11/01/2024 6:57 AM EDT [facility] Phosphorus 2.9 2.1 - 4.7 mg/dL 11/01/2024 6:57 AM EDT [facility] Albumin 3.1(L) 3.5 - 5.7 g/dL 11/01/2024 6:57 AM EDT [facility] Osmolality, Calculated 300 278 - 305 mOsm/kg 11/01/2024 6:57 AM EDT [facility] EGFR 71 11/01/2024 6:57 [facility] Comment:As of 2021, the [...] M, Olivia DC, Emerita ND, Madelyn [place], Asphalt Dauber [place], et al. A Unifying Approach for GFR Estimation: Recommendations of the NKF-ASN Task Force on Reassessing the inclusion of Race in Diagnosing Kidney Disease. Am J Kidney Dis. 2020. Plasma 11/01/2024 6:01 AM EDT 11/01/2024 6:20 AM EDT Beata Newberrybrook Horner CENTRAL STORES ATTENDANT LAB BLOOD ORDERABLES Denisse l Result Performing Organization Address City/[facility]/ZIP Co de Phone Number [facility] [address] [place] [address]. [address] * Magnesium (11/01/2024 6:01 AM EDT) Magnesium 1.5 1.5 - 2.5 mg/dL 11/01/2024 6:57 AM EDT [facility] Plasma 11/01/2024 6:01 AM EDT 11/01/2024 6:20 AM EDT Beata Newberryer Evens [facility] BLOOD ORDERABLES Denisse l Result Performing Organization Address [facility] Co de Phone Number [facility] [address] [facility]. [address] * (ABNORMAL) Hepatic Function Panel (11/01/2024 6:01 AM EDT) Total Bilirubin 2.0(H) 0.0 - 1.5 mg/dL 11/01/2024 6:57 AM EDT [facility] Bilirubin, Direct 1.06(H) 0.00 - 0.40 mg/dL 11/01/2024 6:57 AM EDT [facility] AST 21 13 - 39 U/L 11/01/2024 6:57 AM EDT [facility] ALT 62(H) 7 - 52 U/L 11/01/2024 6:57 AM EDT [facility] Alkaline Phosphatase 114 36 - 125 U/L 11/01/2024 6:57 AM EDT [facility] Total Protein 4.6(L) 6.4 - 8.9 g/dL 11/01/2024 6:57 AM EDT [facility] Albumin 3.1(L) 3.5 - 5.7 g/dL 11/01/2024 6:57 AM EDT [facility] Bilirubin, Indirect 0.94 0.00 - 1.10 mg/dL 11/01/2024 6:57 AM EDT [facility] Plasma 11/01/2024 6:01 AM EDT 11/01/2024 6:20 AM EDT us Beata Horner [employer]ORES ATTENDANT LAB BLOOD ORDERABLES Denisse l Result [facility] [address] [place] [address], [facility] * (ABNORMAL) CBC (11/01/2024 6:01 AM EDT) WBC 5.9 3.8 - 10.8 10E3/uL 11/01/2024 6:29 AM EDT [facility] RBC 3.19(L) 4.20 - 5.80 10E6/uL 11/01/2024 6:29 AM EDT [facility] Hemoglobin 9.5(L) 13.2 - 17.1 g/dL 11/01/2024 6:29 AM EDT [facility] Hematocrit 27.8(L) 38.5 - 50.0 % 11/01/2024 6:29 AM EDT [facility] MCV 87.1 80.0 - 100.0 fL 11/01/2024 6:29 AM EDT [facility] MCH 29.9 27.0 - 33.0 pg 11/01/2024 6:29 AM EDT [facility] MCHC 34.3 32.0 - 36.0 g/dL 11/01/2024 6:29 AM EDT [facility] RDW 17.4(H) 11.0 - 15.0 % 11/01/2024 6:29 AM EDT [facility] Platelets 56(L) 140 - 400 10E3/uL 11/01/2024 6:29 AM EDT [facility] MPV 8.3 7.5 - 11.5 fL 11/01/2024 6:29 AM EDT [facility] Whole Blood 11/01/2024 6:01 AM EDT 11/01/2024 6:19 AM EDT Beata Horner [facility] BLOOD ORDERABLES Denisse l Result Performing Organization Address [facility]/ZIP Co de Phone Number [facility] [address] * (ABNORMAL) POC Glucose Monitoring Device (10/31/2024 9:15 PM EDT) POC Glucose Monitoring Device 171(H) 70 - 100 mg/dL 10/31/2024 9:15 PM EDT [facility] Blood 10/31/2024 9:15 PM EDT 10/31/2024 9:15 PM EDT Semaj Mcnair III, MD POINT OF CARE TEST ORDERABLES Final Result Performing Organization Address [facility] Co de Phone Number [facility] [address] * (ABNORMAL) POC Glucose Monitoring Device (10/31/2024 5:56 PM EDT) POC Glucose Monitoring Device 179(H) 70 - 100 mg/dL 10/31/2024 5:57 PM EDT [facility] Blood 10/31/2024 5:56 PM EDT 10/31/2024 5:57 PM EDT Semaj Mcnair III, MD POINT OF CARE TEST ORDERABLES Final Result Performing Organization Address [facility] Co de Phone Number [facility] [address] * CT Abdomen and Pelvis WO [...] Adrenal gland: No focal nodule seen. Kidneys: [place] kidneys noted with nonobstructing calcifications on the right. Findings of postsurgical changes in the left [place] kidney. Mild right hydronephrosis without an obstructive [...] Adrenal gland: No focal nodule seen. Kidneys: [place] kidneys noted with nonobstructing calcifications on theright. Findings of postsurgical changes in the left [place] kidney. Mildright hydronephrosis without an obstructive course [...] QT: 400 ms QTc: 456 ms P Langeloth: 49 degrees R Langeloth: 3 degrees T Langeloth: 14 degrees Diagnosis Line: NORMAL SINUS RHYTHM ^ NORMAL ECG ^ ^ Confirmed by MD JEANETTE, TORI ([id number]) on 11/02/2024 6:56:52 AM Priti Geiger [employer]ORES ATTENDANT ECG ORDERABLES Final Result M[facility] * (ABNORMAL) Urinalysis w/Rfl to Microscopic (10/31/2024 1:18 PM EDT) Color, UA Straw Yellow,Straw 10/31/2024 1:46 PM EDT [facility] Clarity, UA Clear Clear 10/31/2024 1:46 PM EDT [facility] Specific [place], UA 1.013 1.005 - 1.035 10/31/2024 1:46 PM EDT [facility] pH, UA 6.5 5.0 - 8.0 10/31/2024 1:46 PM EDT [facility] Protein, UA Negative Negative mg/dL 10/31/2024 1:46 PM EDT [facility] Glucose, UA Negative Negative mg/dL 10/31/2024 1:46 PM EDT [facility] Ketones, UA Negative Negative mg/dL 10/31/2024 1:46 PM EDT [facility] Bilirubin, UA Negative Negative 10/31/2024 1:46 PM EDT [facility] Blood, UA Large(A) Negative 10/31/2024 1:46 PM EDT [facility] Nitrite, UA Negative Negative 10/31/2024 1:46 PM EDT [facility] Urobilinogen, UA <2.0 0.2 - 1.9 mg/dL 10/31/2024 1:46 PM EDT [facility] Leukocyte Esterase, UA Negative Negative 10/31/2024 1:46 PM EDT [facility] RBC, UA >100(H) 0 - 3 /HPF 10/31/2024 1:46 PM EDT [facility] WBC, UA 3 0 - 5 /HPF 10/31/2024 1:46 PM EDT [facility] Hyaline Casts, UA 3(H) 0 - 2 /LPF 10/31/2024 1:46 PM EDT [facility] Urine 10/31/2024 1:18 PM EDT 10/31/2024 1:32 PM EDT Priti Geiger CNP URINE ORDERABLES Final Result [facility] [address] * (ABNORMAL) Post Kidney Transplant Urine Culture (10/31/2024 1:18 PM EDT) Culture Result Enterococcus faecium, Vancomycin Resistant(A) [facility] Comment: 1,000- <10,000 cfu/mL [...] ORDERA BLES Final Result Performing Organization Address [facility] Co de Phone Number [facility] [address] [facility]. [address] * (ABNORMAL) POC Glucose Monitoring Device (10/31/2024 11:59 AM EDT) POC Glucose Monitoring Device 130(H) 70 - 100 mg/dL 10/31/2024 12:21 PM EDT [facility] Blood 10/31/2024 11:5 9 AM EDT 10/31/2024 12:21 PM EDT Semaj Mcnair III, MD POINT OF CARE TEST ORDERABLES Final Result [facility] [address] * US Abdomen Limited (10/31/2024 10:19 [...] EXAM: US ABDOMEN LIMITED EXAM: US DUPLEX [id number] COMPLETE INDICATION: Post-op liver transplant COMPARISON: None [...] visualized secondary to poor acoustic windows. The [place] right kidney measures 11.6 cm in length. [...] EXAM: US ABDOMEN LIMITED EXAM: US DUPLEX [id number] COMPLETE INDICATION: Post-op liver transplant COMPARISON: None [...] well visualized secondary to poor acousticwindows. The [place] right kidney measures 11.6 cm in length. [...] 10/31/2024 10:35 AM EDT Beata Horner [facility] US ORDERABLES Final R esult * [...] 10/31/2024 10:29 AM EDT us Beata Horner [facility] US ORDERABLES Final R esult * US Duplex [id number] Comp (10/31/2024 10:19 AM EDT) Anatomical Region [...] EXAM: US ABDOMEN LIMITED EXAM: US DUPLEX [id number] COMPLETE INDICATION: Post-op liver transplant COMPARISON: None [...] visualized secondary to poor acoustic windows. The [place] right kidney measures 11.6 cm in length. [...] EXAM: US ABDOMEN LIMITED EXAM: US DUPLEX [id number] COMPLETE INDICATION: Post-op liver transplant COMPARISON: None [...] well visualized secondary to poor acousticwindows. The [place] right kidney measures 11.6 cm in length. [...] 10/31/2024 10:35 AM EDT us Beata Horner [facility] US ORDERABLES Final R esult * ECG 12-lead (MUSE) (10/31/2024 8:57 AM EDT) 10/31/2024 8:57 AM EDT Narrative MUSE - 11/01/2024 9:21 AM EDT Ventricular Rate: 83 BPM Atrial Rate: 83 BPM P-R Interval: 168 ms QRS Duration: 102 ms QT: 392 ms QTc: 460 ms P Langeloth: 64 degrees R Langeloth: -18 degrees T Langeloth: 7 degrees Diagnosis Line: NORMAL SINUS RHYTHM ^ NORMAL ECG ^ ^ Confirmed by MD JOE, OTIS ([id number]) on 11/01/2024 9:21:13 AM us Priti Geiger [facility] ECG ORDERABLES Final Result MUSE * (ABNORMAL) POC Glucose Monitoring Device (10/31/2024 8:44 AM EDT) [facility] POC Glucose Monitoring Device 145(H) 70 - 100 mg/dL 10/31/2024 8:45 AM EDT [facility] Blood 10/31/2024 8:44 AM EDT 10/31/2024 8:44 AM EDT Semaj Mcnair III, MD POINT OF CARE TEST ORDERABLES Final Result Performing Organization Address [facility] Co de Phone Number [facility] [address] * Tacrolimus level (10/31/2024 6:40 AM EDT) [facility] Tacrolimus (LC-MS) 8.4 3.0 - 15.0 ng/mL 10/31/2024 10:05 AM EDT [facility] Comment:Performed via liquid chromatography tandem mass spectrometry. Detection limit: 1 ng/mL. Individual target concentrations may vary due to target organ and time after transplant. This test has been developed and its performance characteristics determined by [facility] which is certified under the [...] City/[facility]/ZIP Co de Phone Number [facility] [address] [facility]. [address] * (ABNORMAL) Renal Function Panel w/EGFR (10/31/2024 6:40 AM EDT) [facility] Sodium 141 133 - 146 mmol/L 10/31/2024 8:09 AM EDT [facility] Potassium 3.5 3.5 - 5.3 mmol/L 10/31/2024 8:09 AM EDT [facility] Chloride 111(H) 98 - 110 mmol/L 10/31/2024 8:09 AM EDT [facility] CO2 20(L) 21 - 33 mmol/L 10/31/2024 8:09 AM EDT [facility] Anion Gap 10 3 - 16 mmol/L 10/31/2024 8:09 AM EDT [facility] BUN 54(H) 7 - 25 mg/dL 10/31/2024 8:09 AM EDT [facility] Creatinine 1.75(H) 0.60 - 1.30 mg/dL 10/31/2024 8:09 AM EDT [facility] Glucose 136(H) 70 - 100 mg/dL 10/31/2024 8:09 AM EDT [facility] Calcium 8.7 8.6 - 10.3 mg/dL 10/31/2024 8:09 AM EDT [facility] Phosphorus 4.1 2.1 - 4.7 mg/dL 10/31/2024 8:09 AM EDT [facility] Albumin 3.2(L) 3.5 - 5.7 g/dL 10/31/2024 8:09 AM EDT [facility] Osmolality, Calculated 309(H) 278 - 305 mOsm/kg 10/31/2024 8:09 AM EDT [facility] EGFR 50 10/31/2024 8:09 AM [facility] Comment:As of 2021, the estimated GFR [...] 10/31/2024 7:35 AM EDT Beata Dada Horner [employer] BLOOD ORDERABLES Denisse l Result [facility] [address] [facility]. [address] * Magnesium (10/31/2024 6:40 AM EDT) Magnesium 1.8 1.5 - 2.5 mg/dL 10/31/2024 8:09 AM EDT [facility] Plasma 10/31/2024 6:40 AM EDT 10/31/2024 7:35 AM EDT Beata Dada Horner [employer] LAB BLOOD ORDERABLES Denisse l Result Performing Organization Address [facility] [facility] Co de Phone Number [facility] [address] [facility]. [address] * (ABNORMAL) Hepatic Function Panel (10/31/2024 6:40 AM EDT) Total Bilirubin 2.7(H) 0.0 - 1.5 mg/dL 10/31/2024 8:09 AM EDT [facility] Bilirubin, Direct 1.57(H) 0.00 - 0.40 mg/dL 10/31/2024 8:09 AM EDT [facility] AST 26 13 - 39 U/L 10/31/2024 8:09 AM EDT [facility] ALT 68(H) 7 - 52 U/L 10/31/2024 8:09 AM EDT [facility] Alkaline Phosphatase 112 36 - 125 U/L 10/31/2024 8:09 AM EDT [facility] Total Protein 4.7(L) 6.4 - 8.9 g/dL 10/31/2024 8:09 AM EDT [facility] Albumin 3.2(L) 3.5 - 5.7 g/dL 10/31/2024 8:09 AM EDT [facility] Bilirubin, Indirect 1.13(H) 0.00 - 1.10 mg/dL 10/31/2024 8:09 AM EDT [facility] Plasma 10/31/2024 6:40 AM EDT 10/31/2024 7:35 AM EDT Beata Horner [facility] BLOOD ORDERABLES Denisse valle Result [facility] [address] [id number] * (ABNORMAL) CBC (10/31/2024 6:40 AM EDT) [facility] WBC 6.0 3.8 - 10.8 10E3/uL 10/31/2024 8:05 AM EDT [facility] RBC 3.14(L) 4.20 - 5.80 10E6/uL 10/31/2024 8:05 AM EDT [facility] Hemoglobin 9.6(L) 13.2 - 17.1 g/dL 10/31/2024 8:05 AM EDT [facility] Hematocrit 27.5(L) 38.5 - 50.0 % 10/31/2024 8:05 AM EDT [facility] MCV 87.6 80.0 - 100.0 fL 10/31/2024 8:05 AM EDT [facility] MCH 30.7 27.0 - 33.0 pg 10/31/2024 8:05 AM EDT [facility] MCHC 35.0 32.0 - 36.0 g/dL 10/31/2024 8:05 AM EDT [facility] RDW 17.9(H) 11.0 - 15.0 % 10/31/2024 8:05 AM EDT [facility] Platelets 44(L) 140 - 400 10E3/uL 10/31/2024 8:05 AM EDT [facility] Comment: CNV Specimen checked for clots. None detected. MPV 8.9 7.5 - 11.5 fL 10/31/2024 8:05 AM EDT [facility] Whole Blood 10/31/2024 6:40 AM EDT 10/31/2024 7:34 AM EDT Beata Horner [facility] BLOOD ORDERABLES Denisse l Result [facility] [address] * (ABNORMAL) POC Glucose Monitoring Device (10/30/2024 9:01 PM EDT) POC Glucose Monitoring Device 144(H) 70 - 100 mg/dL 10/30/2024 9:02 PM EDT [facility] Blood 10/30/2024 9:01 PM EDT 10/30/2024 9:01 PM EDT us Semaj Mcnair III, MD POINT OF CARE TEST ORDERABLES Final Result Performing Organization Address City/[facility] Co de Phone Number [facility] [address] [facility]. [address] * (ABNORMAL) POC Glucose Monitoring Device (10/30/2024 5:37 PM EDT) POC Glucose Monitoring Device 124(H) 70 - 100 mg/dL 10/30/2024 5:47 PM EDT [facility] Blood 10/30/2024 5:37 PM EDT 10/30/2024 5:47 PM EDT us Semaj Mcnair III, MD POINT OF CARE TEST ORDERABLES Final Result Performing Organization Address City/[facility]/ZIP Co de Phone Number [facility] [address] [facility]. [address] * (ABNORMAL) POC Glucose Monitoring Device (10/30/2024 7:26 AM EDT) POC Glucose Monitoring Device 150(H) 70 - 100 mg/dL 10/30/2024 7:27 AM EDT [facility] Blood 10/30/2024 7:26 AM EDT 10/30/2024 7:27 AM EDT us Semaj Mcnair III, MD POINT OF CARE TEST ORDERABLES Final Result Performing Organization Address [facility] Co de Phone Number [facility] [address] * Tacrolimus level (10/30/2024 7:13 AM EDT) Tacrolimus (LC-MS) 9.5 3.0 - 15.0 ng/mL 10/30/2024 2:53 PM EDT [facility] Comment:Performed via liquid chromatography tandem mass spectrometry. Detection limit: 1 ng/mL. Individual target concentrations may vary due to target organ and time after transplant. This test has been developed and its performance characteristics determined by [facility] which is certified under the Clinical [...] 7:13 AM EDT 10/30/2024 7:26 AM EDT meevl [facility] BLOOD ORDERABLES Final Re sult Performing Organization Address [facility] de Phone Number [facility] [address] [facility]. [address] * ECG 12-lead (MUSE) (10/30/2024 6:51 AM EDT) 10/30/2024 6:51 AM EDT Narrative MUSE - 11/01/2024 9:21 AM EDT Ventricular Rate: 92 BPM Atrial Rate: 92 BPM P-R Interval: 174 ms QRS Duration: 96 ms QT: 376 ms QTc: 464 ms P Langeloth: 54 degrees R Langeloth: -24 degrees T Langeloth: 11 degrees Diagnosis Line: NORMAL SINUS RHYTHM ^ NORMAL ECG ^ ^ Confirmed by MD JOE, OTIS ([id number]) on 11/01/2024 9:21:09 AM meevl [employer] ATTENDANT ECG ORDERABLES Final Result Performing Organization Address [facility] Co de Phone Number MUSE * (ABNORMAL) Renal Function Panel w/EGFR (10/30/2024 5:41 AM EDT) Sodium 140 133 - 146 mmol/L 10/30/2024 6:18 AM EDT [facility] Potassium 3.8 3.5 - 5.3 mmol/L 10/30/2024 6:18 AM EDT [facility] Chloride 111(H) 98 - 110 mmol/L 10/30/2024 6:18 AM EDT [facility] CO2 17(L) 21 - 33 mmol/L 10/30/2024 6:18 AM EDT [facility] Anion Gap 12 3 - 16 mmol/L 10/30/2024 6:18 AM EDT [facility] BUN 62(H) 7 - 25 mg/dL 10/30/2024 6:18 AM EDT [facility] Creatinine 1.96(H) 0.60 - 1.30 mg/dL 10/30/2024 6:18 AM EDT [facility] Glucose 116(H) 70 - 100 mg/dL 10/30/2024 6:18 AM EDT [facility] Calcium 9.0 8.6 - 10.3 mg/dL 10/30/2024 6:18 AM EDT [facility] Phosphorus 4.6 2.1 - 4.7 mg/dL 10/30/2024 6:18 AM EDT [facility] Albumin 3.2(L) 3.5 - 5.7 g/dL 10/30/2024 6:18 AM EDT [facility] Osmolality, Calculated 309(H) 278 - 305 mOsm/kg 10/30/2024 6:18 AM EDT [facility] EGFR 43 10/30/2024 6:18 AM EDT [facility] Comment:As of 2021, the [...] EDT 10/30/2024 5:47 AM EDT Beata Bessn [facility] BLOOD ORDERABLES Denisse l Result Performing Organization Address City/[facility]/ZIP Co de Phone Number [facility] [address] [facility]. [address] * Magnesium (10/30/2024 5:41 AM EDT) Magnesium 2.2 1.5 - 2.5 mg/dL 10/30/2024 6:18 AM EDT [facility] Plasma 10/30/2024 5:41 AM EDT 10/30/2024 5:47 AM EDT [facility] BLOOD ORDERABLES Denisse l Result Performing Organization Address [facility] de Phone Number [facility] [address] [facility]. [address] * (ABNORMAL) Hepatic Function Panel (10/30/2024 5:41 AM EDT) Total Bilirubin 3.6(H) 0.0 - 1.5 mg/dL 10/30/2024 6:18 AM EDT [facility] Bilirubin, Direct 1.95(H) 0.00 - 0.40 mg/dL 10/30/2024 6:18 AM EDT [facility] AST 33 13 - 39 U/L 10/30/2024 6:18 AM EDT [facility] ALT 71(H) 7 - 52 U/L 10/30/2024 6:18 AM EDT [facility] Alkaline Phosphatase 80 36 - 125 U/L 10/30/2024 6:18 AM EDT [facility] Total Protein 4.8(L) 6.4 - 8.9 g/dL 10/30/2024 6:18 AM EDT [facility] Albumin 3.2(L) 3.5 - 5.7 g/dL 10/30/2024 6:18 AM EDT [facility] Bilirubin, Indirect 1.65(H) 0.00 - 1.10 mg/dL 10/30/2024 6:18 AM EDT [facility] Plasma 10/30/2024 5:41 AM EDT 10/30/2024 5:47 AM EDT us Beata Horner [employer] ATTEND[employer] LAB BLOOD ORDERABLES Denisse l Result [facility] [address] [place] [address], [facility] * (ABNORMAL) CBC (10/30/2024 5:41 AM EDT) WBC 8.1 3.8 - 10.8 10E3/uL 10/30/2024 8:06 AM EDT [facility] RBC 3.29(L) 4.20 - 5.80 10E6/uL 10/30/2024 8:06 AM EDT [facility] Hemoglobin 10.1(L) 13.2 - 17.1 g/dL 10/30/2024 8:06 AM EDT [facility] Hematocrit 28.8(L) 38.5 - 50.0 % 10/30/2024 8:06 AM EDT [facility] MCV 87.6 80.0 - 100.0 fL 10/30/2024 8:06 AM EDT [facility] MCH 30.6 27.0 - 33.0 pg 10/30/2024 8:06 AM EDT [facility] MCHC 34.9 32.0 - 36.0 g/dL 10/30/2024 8:06 AM EDT [facility] RDW 18.1(H) 11.0 - 15.0 % 10/30/2024 8:06 AM EDT [facility] Platelets 44(L) 140 - 400 10E3/uL 10/30/2024 8:06 AM EDT [facility] Comment: CNV Specimen checked for clots. None detected. MPV 8.3 7.5 - 11.5 fL 10/30/2024 8:06 AM EDT [facility] Whole Blood 10/30/2024 5:41 AM EDT 10/30/2024 5:50 AM EDT Beata Horner [facility] BLOOD ORDERABLES Denisse l Result [facility] [address] [facility]. [address] * (ABNORMAL) POC Glucose Monitoring Device (10/29/2024 10:18 PM EDT) POC Glucose Monitoring Device 140(H) 70 - 100 mg/dL 10/29/2024 10:18 PM EDT [facility] Blood 10/29/2024 10:1 8 PM EDT 10/29/2024 10:18 PM EDT Semaj Mcnair III, MD POINT OF CARE TEST ORDERABLES Final Result Performing Organization Address City/[facility]/ZIP Co de Phone Number [facility] [address] [facility]. [address] * (ABNORMAL) POC Glucose Monitoring Device (10/29/2024 6:42 PM EDT) POC Glucose Monitoring Device 152(H) 70 - 100 mg/dL 10/29/2024 6:43 PM EDT [facility] Blood 10/29/2024 6:42 PM EDT 10/29/2024 6:43 PM EDT Semaj Mcnair III, MD POINT OF CARE TEST ORDERABLES Final Result [facility] [address] [facility]. [address] * (ABNORMAL) POC Glucose Monitoring Device (10/29/2024 11:35 AM EDT) POC Glucose Monitoring Device 130(H) 70 - 100 mg/dL 10/29/2024 11:36 AM EDT [facility] Blood 10/29/2024 11:3 5 AM EDT 10/29/2024 11:36 AM EDT Semaj Mcnair III, MD POINT OF CARE TEST ORDERABLES Final Result Performing Organization Address City/[facility] Co de Phone Number [facility] [address] * ECG 12 lead (MUSE) (10/29/2024 9:34 AM EDT) 10/29/2024 9:34 AM EDT Narrative MUSE - 10/29/2024 10:34 PM EDT Ventricular Rate: 97 BPM Atrial Rate: 97 BPM P-R Interval: 186 ms QRS Duration: 104 ms QT: 382 ms QTc: 485 ms P Langeloth: 54 degrees R Langeloth: -21 degrees T Langeloth: 1 degrees Diagnosis Line: NORMAL SINUS RHYTHM ^ NORMAL ECG ^ Confirmed by JORGE MACIAS ([id number]) on 10/29/2024 10:34:50 PM Afshan Bear MD ECG ORDERABLES Final Result Performing Organization Address City/[facility] Co de Phone Number MUSE * Tacrolimus level (10/29/2024 8:08 AM EDT) [facility] Tacrolimus (LC-MS) 10.4 3.0 - 15.0 ng/mL 10/29/2024 2:07 PM EDT [facility] Comment:Performed via liquid chromatography tandem mass spectrometry. Detection limit: 1 ng/mL. Individual target concentrations may vary due to target organ and time after transplant. This test has been developed and its performance characteristics determined by [facility] which is certified under the [...] EDT 10/29/2024 8:21 AM EDT Priti Geiger [employer]ES ATTENDANT LAB BLOOD ORDERABLES Final Re sult [facility] [address] * Prepare RBC, leukoreduced, 1 Units (10/29/2024 6:16 AM EDT) Product Code X0585A29 [facility] Unit Number [id number] [facility] Dispense Status Presumed Transfused_PT [facility] Blood Expiration Date [id number] [facility] Coding System [id number] [facility] Blood Bank Product us Shay Plata MD BLOOD BANK PRODUCT O RDERABLES Final Result Performing Organization Address City/[facility]/ZIP Co de Phone Number [facility] * Prepare RBC, leukoreduced, 1 Units (10/29/2024 6:15 AM EDT) Product Code Y5613R05 [facility] Unit Number [id number] [facility] Dispense Status Presumed Transfused_PT [facility] Blood Expiration Date [id number] [facility] Coding System [id number] [facility] Blood Bank Product us Carlos Marks MD BLOOD BANK PRODUCT ORDERABL ES Final Result Performing Organization Address City/[facility]/ZIP Co de Phone Number [facility] * Prepare RBC, leukoreduced, 1 Units (10/29/2024 6:15 AM EDT) Product Code M9851E47 [facility] Unit Number [id number] [facility] Dispense Status Presumed Transfused_PT [facility] Blood Expiration Date [id number] [facility] Coding System [id number] [facility] Blood Bank Product John Moreno MD BLOOD BANK PRODUCT ORDERABLE S Final Result [facility] * (ABNORMAL) Renal Function Panel w/EGFR (10/29/2024 5:07 AM EDT) Sodium 144 133 - 146 mmol/L 10/29/2024 5:49 AM EDT [facility] Potassium 3.8 3.5 - 5.3 mmol/L 10/29/2024 5:49 AM EDT [facility] Chloride 113(H) 98 - 110 mmol/L 10/29/2024 5:49 AM EDT [facility] CO2 17(L) 21 - 33 mmol/L 10/29/2024 5:49 AM EDT [facility] Anion Gap 14 3 - 16 mmol/L 10/29/2024 5:49 AM EDT [facility] BUN 57(H) 7 - 25 mg/dL 10/29/2024 5:49 AM EDT [facility] Creatinine 1.93(H) 0.60 - 1.30 mg/dL 10/29/2024 5:49 AM EDT [facility] Glucose 110(H) 70 - 100 mg/dL 10/29/2024 5:49 AM EDT [facility] Calcium 9.3 8.6 - 10.3 mg/dL 10/29/2024 5:49 AM EDT [facility] Phosphorus 4.8(H) 2.1 - 4.7 mg/dL 10/29/2024 5:49 AM EDT [facility] Albumin 3.5 3.5 - 5.7 g/dL 10/29/2024 5:49 AM EDT [facility] Osmolality, Calculated 314(H) 278 - 305 mOsm/kg 10/29/2024 5:49 AM EDT [facility] EGFR 44 10/29/2024 5:49 AM EDT [facility] Comment:As of 2021, the [...] EDT 10/29/2024 5:13 AM EDT Beata Bessn [employer]OR[employer] ATTENDANT LAB BLOOD ORDERABLES Denisse l Result Performing Organization Address City/[facility] Co de Phone Number [facility] [address] [facility]. [address] * Magnesium (10/29/2024 5:07 AM EDT) Magnesium 2.1 1.5 - 2.5 mg/dL 10/29/2024 5:49 AM EDT [facility] Plasma 10/29/2024 5:07 AM EDT 10/29/2024 5:13 AM EDT [facility] BLOOD ORDERABLES Denisse l Result Performing Organization Address [facility] de Phone Number [facility] [address] [facility]. [address] * (ABNORMAL) Hepatic Function Panel (10/29/2024 5:07 AM EDT) Total Bilirubin 4.2(H) 0.0 - 1.5 mg/dL 10/29/2024 5:49 AM EDT [facility] Bilirubin, Direct 2.85(H) 0.00 - 0.40 mg/dL 10/29/2024 5:49 AM EDT [facility] AST 31 13 - 39 U/L 10/29/2024 5:49 AM EDT [facility] ALT 88(H) 7 - 52 U/L 10/29/2024 5:49 AM EDT [facility] Alkaline Phosphatase 51 36 - 125 U/L 10/29/2024 5:49 AM EDT [facility] Total Protein 5.2(L) 6.4 - 8.9 g/dL 10/29/2024 5:49 AM EDT [facility] Albumin 3.5 3.5 - 5.7 g/dL 10/29/2024 5:49 AM EDT [facility] Bilirubin, Indirect 1.35(H) 0.00 - 1.10 mg/dL 10/29/2024 5:49 AM EDT [facility] Plasma 10/29/2024 5:07 AM EDT 10/29/2024 5:13 AM EDT Beata Horner [employer] ATTENDANT LAB BLOOD ORDERABLES Denisse l Result [facility] [address] [place] [address], [facility] * (ABNORMAL) CBC (10/29/2024 5:07 AM EDT) WBC 7.8 3.8 - 10.8 10E3/uL 10/29/2024 5:38 AM EDT [facility] RBC 3.05(L) 4.20 - 5.80 10E6/uL 10/29/2024 5:38 AM EDT [facility] Hemoglobin 9.0(L) 13.2 - 17.1 g/dL 10/29/2024 5:38 AM EDT [facility] Hematocrit 26.7(L) 38.5 - 50.0 % 10/29/2024 5:38 AM EDT [facility] MCV 87.4 80.0 - 100.0 fL 10/29/2024 5:38 AM EDT [facility] MCH 29.7 27.0 - 33.0 pg 10/29/2024 5:38 AM EDT [facility] MCHC 33.9 32.0 - 36.0 g/dL 10/29/2024 5:38 AM EDT [facility] RDW 18.3(H) 11.0 - 15.0 % 10/29/2024 5:38 AM EDT [facility] Platelets 41(L) 140 - 400 10E3/uL 10/29/2024 5:38 AM EDT [facility] Comment: CNV Specimen checked for clots. None detected. MPV 7.5 7.5 - 11.5 fL 10/29/2024 5:38 AM EDT [facility] Whole Blood 10/29/2024 5:07 AM EDT 10/29/2024 5:13 AM EDT us Beata [address] Evens [facility] BLOOD ORDERABLES Denisse l Result [facility] [address] * (ABNORMAL) TEG-Bypass/ECMO/Liver HN (Factor function, Platelet/Fibrin Clot Strength w/Clot Breakdown, Heparinase In All Channels) (10/29/2024 5:07 AM EDT) [facility] Citrated Kaolin Reaction Time (TEGECMOLIVER) 8.9 4.6 - 9.1 minutes 10/29/2024 7:04 AM EDT [facility] Citrated Kaolin W/Heparinase Reaction Time (TEGECMOLIVER) 7.4 4.3 - 8.3 minutes 10/29/2024 7:04 AM EDT [facility] Citrated Kaolin Maximum Amplitude (TEGECMOLIVER) 52.9 52.0 - 69.0 mm 10/29/2024 7:04 AM EDT [facility] Citrated Functional Fibrinogen W/Heparinase Maximum Amplitude(TEGEC MOLIVER) 20.7 15.0 - 34.0 mm 10/29/2024 7:04 AM EDT [facility] Citrated Rapid Teg W/Heparinase Maximum Amplitude (TEGECMOLIVER) 49.7(L) 53.0 - 69.0 mm 10/29/2024 7:04 AM EDT [facility] Citrated Kaolin w/Heparinase Percent Lysis (TEGECMOLIVER) 0.0 0.0 - 3.2 % 10/29/2024 7:04 AM EDT [facility] Whole Blood (Citrate) 10/29/2024 5:07 AM EDT 10/29/2024 5:10 AM EDT Kemar Sahni MD LAB BLOOD ORDERABLES Final Result [facility] [address] * (ABNORMAL) TEG-Bypass/ECMO/Liver HN (Factor function, Platelet/Fibrin Clot Strength w/Clot Breakdown, Heparinase In All Channels) (10/28/2024 11:55 PM EDT) Citrated Kaolin Reaction Time (TEGECMOLIVER) 8.6 4.6 - 9.1 minutes 10/29/2024 2:01 AM EDT [facility] Citrated Kaolin W/Heparinase Reaction Time (TEGECMOLIVER) 8.7(H) 4.3 - 8.3 minutes 10/29/2024 2:01 AM EDT [facility] Citrated Kaolin Maximum Amplitude (TEGECMOLIVER) 47.9(L) 52.0 - 69.0 mm 10/29/2024 2:01 AM EDT [facility] Citrated Functional Fibrinogen W/Heparinase Maximum Amplitude(TEGEC MOLIVER) 22.0 15.0 - 34.0 mm 10/29/2024 2:01 AM EDT [facility] Citrated Rapid Teg W/Heparinase Maximum Amplitude (TEGECMOLIVER) 45.9(L) 53.0 - 69.0 mm 10/29/2024 2:01 AM EDT [facility] Citrated Kaolin w/Heparinase Percent Lysis (TEGECMOLIVER) 0.0 0.0 - 3.2 % 10/29/2024 2:01 AM EDT [facility] Whole Blood (Citrate) 10/28/2024 11:55 PM EDT 10/28/2024 11:58 PM EDT us Kemar Sahni MD LAB BLOOD ORDERABLES Final Result [facility] [address] * (ABNORMAL) CBC, STAT (10/28/2024 8:04 PM EDT) WBC 3.9 3.8 - 10.8 10E3/uL 10/28/2024 8:36 PM EDT [facility] RBC 2.66(L) 4.20 - 5.80 10E6/uL 10/28/2024 8:36 PM EDT [facility] Hemoglobin 8.0(L) 13.2 - 17.1 g/dL 10/28/2024 8:36 PM EDT [facility] Hematocrit 23.0(L) 38.5 - 50.0 % 10/28/2024 8:36 PM EDT [facility] MCV 86.4 80.0 - 100.0 fL 10/28/2024 8:36 PM EDT [facility] MCH 29.9 27.0 - 33.0 pg 10/28/2024 8:36 PM EDT [facility] MCHC 34.6 32.0 - 36.0 g/dL 10/28/2024 8:36 PM EDT [facility] RDW 18.6(H) 11.0 - 15.0 % 10/28/2024 8:36 PM EDT [facility] Platelets 29(L) 140 - 400 10E3/uL 10/28/2024 8:36 PM EDT [facility] Comment: CNV Specimen checked for clots. None detected. MPV 7.8 7.5 - 11.5 fL 10/28/2024 8:36 PM EDT [facility] Whole Blood 10/28/2024 8:04 PM EDT 10/28/2024 8:14 PM EDT us Carlos Marks MD LAB BLOOD ORDERABLES Final Result Performing Organization Address City/State/[facility] Co de Phone Number [facility] [address] [id number] * (ABNORMAL) POC Glucose Monitoring Device (10/28/2024 8:03 PM EDT) POC Glucose Monitoring Device 122(H) 70 - 100 mg/dL 10/28/2024 8:04 PM EDT [facility] Blood 10/28/2024 8:03 PM EDT 10/28/2024 8:04 PM EDT us Semaj Mcnair III, MD POINT OF CARE TEST ORDERABLES Final Result [facility] [address] * (ABNORMAL) TEG-Bypass/ECMO/Liver HN (Factor function, Platelet/Fibrin Clot Strength w/Clot Breakdown, Heparinase In All Channels) (10/28/2024 6:39 PM EDT) Pathologist [facility] Citrated Kaolin Reaction Time (TEGECMOLIVER) 9.0 4.6 - 9.1 minutes 10/28/2024 7:50 PM EDT [facility] Citrated Kaolin W/Heparinase Reaction Time (TEGECMOLIVER) 8.3 4.3 - 8.3 minutes 10/28/2024 7:50 PM EDT [facility] Citrated Kaolin Maximum Amplitude (TEGECMOLIVER) 47.6(L) 52.0 - 69.0 mm 10/28/2024 7:50 PM EDT [facility] Citrated Functional Fibrinogen W/Heparinase Maximum Amplitude(TEGEC MOLIVER) 20.4 15.0 - 34.0 mm 10/28/2024 7:50 PM EDT [facility] Citrated Rapid Teg W/Heparinase Maximum Amplitude (TEGECMOLIVER) 44.0(L) 53.0 - 69.0 mm 10/28/2024 7:50 PM EDT [facility] Citrated Kaolin w/Heparinase Percent Lysis (TEGECMOLIVER) 0.0 0.0 - 3.2 % 10/28/2024 7:50 PM EDT [facility] Whole Blood (Citrate) 10/28/2024 6:39 PM EDT 10/28/2024 6:42 PM EDT Kemar Sahni MD LAB BLOOD ORDERABLES Final Result [facility] [address] * (ABNORMAL) POC Glucose Monitoring Device (10/28/2024 5:31 PM EDT) POC Glucose Monitoring Device 130(H) 70 - 100 mg/dL 10/28/2024 5:31 PM EDT [facility] Blood 10/28/2024 5:31 PM EDT 10/28/2024 5:31 PM EDT Semaj Mcnair III, MD POINT OF CARE TEST ORDERABLES Final Result Performing Organization Address [facility] Co de Phone Number [facility] [address] * Transfuse RBC Transfusion Rate: Per dept routine (10/28/2024 5:23 PM EDT) Shay Plata MD NURSING TREATMENT OR DERABLES - BLOOD ADMIN Final Result Performing Organization Address [facility] de Phone Number EXTERNAL * Transfuse RBC Transfusion Rate: Per dept routine, 1 Units (10/28/2024 5:23 PM EDT) Shay Plata MD NURSING TREATMENT OR DERABLES - BLOOD ADMIN Final Result Performing Organization Address [facility] [place] de Phone Number EXTERNAL * US Abdomen [...] EXAM: US ABDOMEN LIMITED EXAM: US DUPLEX [id number] COMPLETE INDICATION: Post-op liver transplant DATE: 10/28/2024 [...] retrohepatic inferior vena cava is patent. The [place] right kidney is partially visualized. A prominent [...] EXAM: US ABDOMEN LIMITED EXAM: US DUPLEX [id number] COMPLETE INDICATION: Post-op liver transplant DATE: 10/28/2024 [...] retrohepatic inferior vena cava is patent. The [place] right kidney is partially visualized. A prominent [...] 4:42 PM EDT us Shay Plata MD IM US ORDERABLES Fi nal Result * US Duplex Axl-Aze-Chspepn Comp (10/28/2024 4:23 PM EDT) Anatomical Region [...] EXAM: US ABDOMEN LIMITED EXAM: US DUPLEX [id number] COMPLETE INDICATION: Post-op liver transplant DATE: 10/28/2024 [...] retrohepatic inferior vena cava is patent. The [place] right kidney is partially visualized. A prominent [...] EXAM: US ABDOMEN LIMITED EXAM: US DUPLEX [id number] COMPLETE INDICATION: Post-op liver transplant DATE: 10/28/2024 [...] retrohepatic inferior vena cava is patent. The [place] right kidney is partially visualized. A prominent [...] 4:42 PM EDT us Shay Plata MD [facility] US ORDERABLES Fi nal Result * (ABNORMAL) CBC, STAT (10/28/2024 2:49 PM EDT) WBC 4.0 3.8 - 10.8 10E3/uL 10/28/2024 3:07 PM EDT [facility] RBC 2.44(L) 4.20 - 5.80 10E6/uL 10/28/2024 3:07 PM EDT [facility] Hemoglobin 7.5(L) 13.2 - 17.1 g/dL 10/28/2024 3:07 PM EDT [facility] Hematocrit 21.4(L) 38.5 - 50.0 % 10/28/2024 3:07 PM EDT [facility] MCV 87.6 80.0 - 100.0 fL 10/28/2024 3:07 PM EDT [facility] MCH 30.6 27.0 - 33.0 pg 10/28/2024 3:07 PM EDT [facility] MCHC 34.9 32.0 - 36.0 g/dL 10/28/2024 3:07 PM EDT [facility] SYSTEM LAB RDW 18.4(H) 11.0 - 15.0 % 10/28/2024 3:07 PM EDT [facility] Platelets 30(L) 140 - 400 10E3/uL 10/28/2024 3:07 PM EDT [facility] Comment: CNV Specimen checked for clots. None detected. MPV 7.7 7.5 - 11.5 fL 10/28/2024 3:07 PM EDT [facility] Whole Blood 10/28/2024 2:49 PM EDT 10/28/2024 2:53 PM EDT Carlos Marks MD LAB BLOOD ORDERABLES Final Result Performing Organization Address City/State/[facility] Co de Phone Number [facility] [address] * ECG 12 lead (MUSE) (10/28/2024 1:22 PM EDT) 10/28/2024 1:22 PM EDT Narrative MUSE - 10/29/2024 10:34 PM EDT Ventricular Rate: 104 BPM Atrial Rate: 104 BPM P-R Interval: 172 ms QRS Duration: 90 ms QT: 354 ms QTc: 465 ms P Langeloth: 58 degrees R Langeloth: -19 degrees T Langeloth: 38 degrees Diagnosis Line: SINUS TACHYCARDIA ^ OTHERWISE NORMAL ECG ^ ^ Confirmed by JORGE MACIAS ([id number]) on 10/29/2024 10:34:22 PM Hillary Fernandes PharmD ECG ORDERABLES Final Res ult Performing Organization Address City/[facility]/ZIP Co de Phone Number MUSE * (ABNORMAL) POC Glucose Monitoring Device (10/28/2024 12:54 PM EDT) POC Glucose Monitoring Device 119(H) 70 - 100 mg/dL 10/28/2024 12:55 PM EDT [facility] Blood 10/28/2024 12:5 4 PM EDT 10/28/2024 12:55 PM EDT us Semaj Mcnair III, MD POINT OF CARE TEST ORDERABLES Final Result Performing Organization Address [facility] Co de Phone Number [facility] [address] * Transfuse RBC Transfusion Rate: Per dept routine (10/28/2024 12:31 PM EDT) Carlos Marks MD NURSING TREATMENT ORDERABLE S - BLOOD ADMIN Final Result Performing Organization Address City/[facility] Co de Phone Number EXTERNAL * Transfuse RBC Transfusion Rate: Per dept routine, 1 Units (10/28/2024 12:31 PM EDT) us Carlos Marks MD NURSING TREATMENT ORDERABLE S - BLOOD ADMIN Final Result Performing Organization Address [facility] de Phone Number EXTERNAL * Protime-INR, STAT (10/28/2024 11:09 AM EDT) Protime 14.3 12.1 - 15.1 seconds 10/28/2024 11:29 AM EDT [facility] INR 1.1 0.9 - 1.1 10/28/2024 11:29 AM EDT [facility]ALTH [facility] Comment: RECOMMENDED THERAPEUTIC RANGES USING INR : Stable oral anticoagulant therapy: 2.0 - 3.0 Mechanical prosthetic heart valve: 2.5 - 3.5 Recurrent acute myocardial infarction: 2.5 - 3.5 Plasma 10/28/2024 11:0 9 AM EDT 10/28/2024 11:16 AM EDT us Carlos Marks MD LAB BLOOD ORDERABLES Final Result Performing Organization Address [facility]/ZIP Co de Phone Number [facility] [address] * (ABNORMAL) Lactic Acid, STAT (10/28/2024 11:09 AM EDT) Lactate 0.3(L) 0.5 - 2.2 mmol/L 10/28/2024 11:37 AM EDT [facility] Plasma 10/28/2024 11:0 9 AM EDT 10/28/2024 11:15 AM EDT us Carlos Marks MD LAB BLOOD ORDERABLES Final Result Performing Organization Address [facility] Co de Phone Number [facility] [address] * Magnesium, STAT (10/28/2024 11:09 AM EDT) Magnesium 2.1 1.5 - 2.5 mg/dL 10/28/2024 11:47 AM EDT [facility] Plasma 10/28/2024 11:0 9 AM EDT 10/28/2024 11:16 AM EDT us Carlos Marks MD LAB BLOOD ORDERABLES Final Result Performing Organization Address [facility] Co de Phone Number [facility] [address] [facility]. [address] * (ABNORMAL) Renal Function Panel w/EGFR, STAT (10/28/2024 11:09 AM EDT) Sodium 144 133 - 146 mmol/L 10/28/2024 11:47 AM EDT [facility] Potassium 3.4(L) 3.5 - 5.3 mmol/L 10/28/2024 11:47 AM EDT [facility] Chloride 112(H) 98 - 110 mmol/L 10/28/2024 11:47 AM EDT [facility] CO2 22 21 - 33 mmol/L 10/28/2024 11:47 AM EDT [facility] Anion Gap 10 3 - 16 mmol/L 10/28/2024 11:47 AM EDT [facility] BUN 57(H) 7 - 25 mg/dL 10/28/2024 11:47 AM EDT [facility] Creatinine 2.01(H) 0.60 - 1.30 mg/dL 10/28/2024 11:47 AM EDT [facility] Glucose 108(H) 70 - 100 mg/dL 10/28/2024 11:47 AM EDT [facility] Calcium 8.8 8.6 - 10.3 mg/dL 10/28/2024 11:47 AM EDT [facility] Phosphorus 4.0 2.1 - 4.7 mg/dL 10/28/2024 11:47 AM EDT [facility] Albumin 3.3(L) 3.5 - 5.7 g/dL 10/28/2024 11:47 AM EDT [facility] Osmolality, Calculated 314(H) 278 - 305 mOsm/kg 10/28/2024 11:47 AM EDT [facility] EGFR 42 10/28/2024 11:47 AM EDT [facility] Comment:As of 2021, the [...] Marks MD LAB BLOOD ORDERABLES Final Result [facility] [address] * (ABNORMAL) TEG-Bypass/ECMO/Liver HN (Factor function, Platelet/Fibrin Clot Strength w/Clot Breakdown, Heparinase In All Channels) (10/28/2024 11:09 AM EDT) Citrated Kaolin Reaction Time (TEGECMOLIVER) 9.2(H) 4.6 - 9.1 minutes 10/28/2024 12:30 PM EDT [facility] Citrated Kaolin W/Heparinase Reaction Time (TEGECMOLIVER) 9.6(H) 4.3 - 8.3 minutes 10/28/2024 12:30 PM EDT [facility] Citrated Kaolin Maximum Amplitude (TEGECMOLIVER) 51.2(L) 52.0 - 69.0 mm 10/28/2024 12:30 PM EDT [facility] Citrated Functional Fibrinogen W/Heparinase Maximum Amplitude(TEGEC MOLIVER) 21.6 15.0 - 34.0 mm 10/28/2024 12:30 PM EDT [facility] Citrated Rapid Teg W/Heparinase Maximum Amplitude (TEGECMOLIVER) 49.3(L) 53.0 - 69.0 mm 10/28/2024 12:30 PM EDT [facility] Citrated Kaolin w/Heparinase Percent Lysis (TEGECMOLIVER) 0.0 0.0 - 3.2 % 10/28/2024 12:30 PM EDT [facility] Whole Blood (Citrate) 10/28/2024 11:09 AM EDT 10/28/2024 11:14 AM EDT us Kemar Sahni MD LAB BLOOD ORDERABLES Final Result [facility] [address] * (ABNORMAL) CBC (10/28/2024 10:21 AM EDT) WBC 4.1 3.8 - 10.8 10E3/uL 10/28/2024 10:41 AM EDT [facility] RBC 2.30(L) 4.20 - 5.80 10E6/uL 10/28/2024 10:41 AM EDT [facility] Hemoglobin 7.1(L) 13.2 - 17.1 g/dL 10/28/2024 10:41 AM EDT [facility] Hematocrit 20.4(L) 38.5 - 50.0 % 10/28/2024 10:41 AM EDT [facility] MCV 88.5 80.0 - 100.0 fL 10/28/2024 10:41 AM EDT [facility] MCH 30.7 27.0 - 33.0 pg 10/28/2024 10:41 AM EDT [facility] MCHC 34.7 32.0 - 36.0 g/dL 10/28/2024 10:41 AM EDT [facility] RDW 18.7(H) 11.0 - 15.0 % 10/28/2024 10:41 AM EDT [facility] Platelets 37(L) 140 - 400 10E3/uL 10/28/2024 10:41 AM EDT [facility] Comment: CNV Specimen checked for clots. None detected. MPV 7.6 7.5 - 11.5 fL 10/28/2024 10:41 AM EDT [facility] Whole Blood 10/28/2024 10:2 1 AM EDT 10/28/2024 10:29 AM EDT us Carlos Marks MD LAB BLOOD ORDERABLES Final Result Performing Organization Address City/State/[facility] Co de Phone Number [facility] [address] [place] [address], [facility] * POC Glucose Monitoring Device (10/28/2024 9:07 AM EDT) [facility] POC Glucose Monitoring Device 97 70 - 100 mg/dL 10/28/2024 9:08 AM EDT [facility] Blood 10/28/2024 9:07 AM EDT 10/28/2024 9:08 AM EDT us Semaj Mcnair III, MD POINT OF CARE TEST ORDERABLES Final Result Performing Organization Address City/[facility]/ZIP Co de Phone Number [facility] [address] * (ABNORMAL) Tacrolimus level (10/28/2024 8:20 AM EDT) [facility] Tacrolimus (LC-MS) <1.0(L) 3.0 - 15.0 ng/mL 10/28/2024 2:02 PM EDT [facility] Comment:Performed via liquid chromatography tandem mass spectrometry. Detection limit: 1 ng/mL. Individual target concentrations may vary due to target organ and time after transplant. This test has been developed and its performance characteristics determined by Pending sale to [facility] which is certified under the Clinical [...] 10/28/2024 8:29 AM EDT Priti Geiger [facility] BLOOD ORDERABLES Final Re sult Performing Organization Address [facility] Co de Phone Number [facility] [address] [place] [address] * (ABNORMAL) POC Glucose Monitoring Device (10/28/2024 8:10 AM EDT) [facility] POC Glucose Monitoring Device 102(H) 70 - 100 mg/dL 10/28/2024 8:11 AM EDT [facility] Blood 10/28/2024 8:10 AM EDT 10/28/2024 8:11 AM EDT Semaj Mcnair III, MD POINT OF CARE TEST ORDERABLES Final Result Performing Organization Address City/[facility]/ZIP Co de Phone Number [facility] [address] [place] [address]. [address] * POC Glucose Monitoring Device (10/28/2024 6:17 AM EDT) POC Glucose Monitoring Device 100 70 - 100 mg/dL 10/28/2024 6:18 AM EDT [facility] Blood 10/28/2024 6:17 AM EDT 10/28/2024 6:18 AM EDT Semaj Mcnair III, MD POINT OF CARE TEST ORDERABLES Final Result [facility] [address] [place] [address], [facility] * Prepare Platelets, leukoreduced (10/28/2024 6:15 AM EDT) Product Code P5942V64 HCLL Unit Number [id number] HCLL Dispense Status Presumed Transfused_PT HCLL Blood Expiration Date HCLL Coding System [id number] HCLL Product Code M0342S54 HCLL Unit Number [id number] HCLL Dispense Status Presumed Transfused_PT HCLL Blood Expiration Date HCLL Coding System [id number] HCLL Attending Provider Unknown BLOOD BANK PRODUCT OR DERABLES Final Result Performing Organization Address City/[facility]/ZIP Co de Phone Number [facility] * Prepare Fresh Frozen Plasma (10/28/2024 6:15 AM EDT) Product Code G2234Q29 HCLL Unit Number [id number] HCLL Dispense Status Released from Crossmatch_RE HCLL Blood Expiration Date [id number] HCLL Coding System [id number] HCLL Product Code R8863C54 HCLL Unit Number [id number] HCLL Dispense Status Presumed Transfused_PT HCLL Blood Expiration Date HCLL Coding System KVPR822 HCLL Product Code Y1145O92 HCLL Unit Number [id number] HCLL Dispense Status Released from Crossmatch_RE HCLL Blood Expiration Date HCLL Coding System [id number] HCLL Product Code M0079D80 HCLL Unit Number [id number] HCLL Dispense Status Presumed Transfused_PT HCLL Blood Expiration Date HCLL Coding System [id number] HCLL Product Code P8778C80 HCLL Unit Number [id number] HCLL Dispense Status Released from Crossmatch_RE HCLL Blood Expiration Date [id number] HCLL Coding System YXET262 HCLL us Attending Provider Unknown BLOOD BANK PRODUCT OR DERABLES Final Result Performing Organization Address City/[facility] Co de Phone Number [facility] * Prepare RBC, leukoreduced (10/28/2024 6:15 AM EDT) Product Code L8143R15 HCLL Unit Number [id number] HCLL Dispense Status Released from Crossmatch_RE HCLL Blood Expiration Date HCLL Coding System JCQB855 HCLL Product Code S4122O50 HCLL Unit Number [id number] HCLL Dispense Status Presumed Transfused_PT HCLL Blood Expiration Date [id number] HCLL Coding System SCFE820 HCLL Product Code X6337H53 HCLL Unit Number [id number] HCLL Dispense Status Released from Crossmatch_RE HCLL Blood Expiration Date [id number] HCLL Coding System VJYJ540 HCLL Product Code F3795L20 HCLL Unit Number [id number] HCLL Dispense Status Presumed Transfused_PT HCLL Blood Expiration Date HCLL Coding System NAXV227 HCLL Product Code U4157X66 HCLL Unit Number [id number] HCLL Dispense Status Released from Crossmatch_RE HCLL Blood Expiration Date HCLL Coding System YEQX988 HCLL us Attending Provider Unknown BLOOD BANK PRODUCT OR DERABLES Final Result HC[facility] * Prepare Platelets, leukoreduced, 1 Units (10/28/2024 6:15 AM EDT) Product Code X2764A20 HCLL Unit Number [id number] HCLL Dispense Status Presumed Transfused_PT HCLL Blood Expiration Date 420369612491 HCLL Coding System IYCT202 HCLL Blood Bank Product John Pina MD BLOOD BANK PRODUCT ORDERABLES F inal Result Performing Organization Address [facility] de Phone Number HCLL * Prepare Cryoprecipitate, 1 Units (10/28/2024 6:15 AM EDT) Product Code A3470Y07 HCLL Unit Number [id number] HCLL Dispense Status Presumed Transfused_PT HCLL Blood Expiration Date HCLL Coding System LSTH532 HCLL Product Code D9016E56 HCLL Unit Number [id number] HCLL Dispense Status Presumed Transfused_PT HCLL Blood Expiration Date [id number] HCLL Coding System MCNO562 HCLL Blood Bank Product John Pina MD BLOOD BANK PRODUCT ORDERABLES F inal Result Performing Organization Address [facility] de Phone Number HC[facility] * Prepare Fresh Frozen Plasma, 1 Units (10/28/2024 6:15 AM EDT) Product Code T0769Z23 HCLL Unit Number [id number] HCLL Dispense Status Presumed Transfused_PT HCLL Blood Expiration Date 208759029898 HCLL Coding System GRYQ283 HCLL Blood Bank Product John Pina MD BLOOD BANK PRODUCT ORDERABLES F inal Result Performing Organization Address [facility] Co de Phone Number HCLL * Prepare Cryoprecipitate, 1 Units (10/28/2024 6:15 AM EDT) Product Code X8986R40 HCLL Unit Number [id number] HCLL Dispense Status Presumed Transfused_PT HCLL Blood Expiration Date HCLL Coding System AEWM528 HCLL Product Code F0582F72 HCLL Unit Number [id number] HCLL Dispense Status Presumed Transfused_PT HCLL Blood Expiration Date HCLL Coding System VXFJ278 HCLL Product Code J7066P23 HCLL Unit Number [id number] HCLL Dispense Status Presumed Transfused_PT HCLL Blood Expiration Date HCLL Coding System KAOW786 HCLL Product Code G7259D62 HCLL Unit Number [id number] HCLL Dispense Status Presumed Transfused_PT HCLL Blood Expiration Date HCLL Coding System WFLO121 HCLL Blood Bank Product John Pina MD BLOOD BANK PRODUCT ORDERABLES F inal Result HCLL * (ABNORMAL) POC Glucose Monitoring Device (10/28/2024 4:55 AM EDT) Pathologist [facility] POC Glucose Monitoring Device 104(H) 70 - 100 mg/dL 10/28/2024 4:57 AM EDT [facility] Blood 10/28/2024 4:55 AM EDT 10/28/2024 4:57 AM EDT Semaj Mcnair III, MD POINT OF CARE TEST ORDERABLES Final Result [facility] [address] [place] [address], [facility] * TEG-Bypass/ECMO/Liver HN (Factor function, Platelet/Fibrin Clot Strength w/Clot Breakdown, Heparinase In All Channels) (10/28/2024 4:13 AM EDT) Citrated Kaolin Reaction Time (TEGECMOLIVER) 7.2 4.6 - 9.1 minutes 10/28/2024 5:38 AM EDT [facility] Citrated Kaolin W/Heparinase Reaction Time (TEGECMOLIVER) 7.8 4.3 - 8.3 minutes 10/28/2024 5:38 AM EDT [facility] Citrated Kaolin Maximum Amplitude (TEGECMOLIVER) 53.0 52.0 - 69.0 mm 10/28/2024 5:38 AM EDT [facility] Citrated Functional Fibrinogen W/Heparinase Maximum Amplitude(TEGEC MOLIVER) 21.4 15.0 - 34.0 mm 10/28/2024 5:38 AM EDT [facility] Citrated Rapid Teg W/Heparinase Maximum Amplitude (TEGECMOLIVER) 54.7 53.0 - 69.0 mm 10/28/2024 5:38 AM EDT [facility] Citrated Kaolin w/Heparinase Percent Lysis (TEGECMOLIVER) 0.0 0.0 - 3.2 % 10/28/2024 5:38 AM EDT [facility] Whole Blood (Citrate) 10/28/2024 4:13 AM EDT 10/28/2024 4:28 AM EDT Kemar Sahni MD LAB BLOOD ORDERABLES Final Result Performing Organization Address City/State/[facility] Co de Phone Number [facility] [address] * Protime-INR (10/28/2024 4:13 AM EDT) Protime 14.6 12.1 - 15.1 seconds 10/28/2024 4:53 AM EDT [facility] INR 1.1 0.9 - 1.1 10/28/2024 4:53 AM EDT [facility] Comment: RECOMMENDED THERAPEUTIC RANGES USING INR : Stable oral anticoagulant therapy: 2.0 - 3.0 Mechanical prosthetic heart valve: 2.5 - 3.5 Recurrent acute myocardial infarction: 2.5 - 3.5 Plasma 10/28/2024 4:13 AM EDT 10/28/2024 4:41 AM EDT Kemar Sahni MD LAB BLOOD ORDERABLES Final Result [facility] [address] * Magnesium (10/28/2024 4:13 AM EDT) Magnesium 2.2 1.5 - 2.5 mg/dL 10/28/2024 5:15 AM EDT [facility] Plasma 10/28/2024 4:13 AM EDT 10/28/2024 4:41 AM EDT Kemar Sahni MD LAB BLOOD ORDERABLES Final Result Performing Organization Address City/State/[facility] Co de Phone Number [facility] [address] [facility]. [address] * (ABNORMAL) Hepatic Function Panel (10/28/2024 4:13 AM EDT) Total Bilirubin 2.3(H) 0.0 - 1.5 mg/dL 10/28/2024 5:15 AM EDT [facility] Bilirubin, Direct 1.67(H) 0.00 - 0.40 mg/dL 10/28/2024 5:15 AM EDT [facility] AST 44(H) 13 - 39 U/L 10/28/2024 5:15 AM EDT [facility] ALT 101(H) 7 - 52 U/L 10/28/2024 5:15 AM EDT [facility] Alkaline Phosphatase 26(L) 36 - 125 U/L 10/28/2024 5:15 AM EDT [facility] Total Protein 4.5(L) 6.4 - 8.9 g/dL 10/28/2024 5:15 AM EDT [facility] Albumin 3.1(L) 3.5 - 5.7 g/dL 10/28/2024 5:15 AM EDT [facility] Bilirubin, Indirect 0.63 0.00 - 1.10 mg/dL 10/28/2024 5:15 AM EDT [facility] Plasma 10/28/2024 4:13 AM EDT 10/28/2024 4:41 AM EDT Kemar Sahni MD LAB BLOOD ORDERABLES Final Result [facility] [address] [place] [address], [facility] * (ABNORMAL) Renal Function Panel w/EGFR (10/28/2024 4:13 AM EDT) Sodium 142 133 - 146 mmol/L 10/28/2024 5:15 AM EDT [facility] Potassium 3.5 3.5 - 5.3 mmol/L 10/28/2024 5:15 AM EDT [facility] Chloride 111(H) 98 - 110 mmol/L 10/28/2024 5:15 AM EDT [facility] CO2 22 21 - 33 mmol/L 10/28/2024 5:15 AM EDT [facility] Anion Gap 9 3 - 16 mmol/L 10/28/2024 5:15 AM EDT [facility] BUN 58(H) 7 - 25 mg/dL 10/28/2024 5:15 AM EDT [facility] Creatinine 2.24(H) 0.60 - 1.30 mg/dL 10/28/2024 5:15 AM EDT [facility] Glucose 103(H) 70 - 100 mg/dL 10/28/2024 5:15 AM EDT [facility] Calcium 9.1 8.6 - 10.3 mg/dL 10/28/2024 5:15 AM EDT [facility] Phosphorus 4.8(H) 2.1 - 4.7 mg/dL 10/28/2024 5:15 AM EDT [facility] Albumin 3.1(L) 3.5 - 5.7 g/dL 10/28/2024 5:15 AM EDT [facility] Osmolality, Calculated 310(H) 278 - 305 mOsm/kg 10/28/2024 5:15 AM EDT [facility] EGFR 37 10/28/2024 5:15 AM EDT [facility] Comment:As of 2021, the [...] HEALTH CARE FACILITY Co de Phone Number [facility] [address] * (ABNORMAL) CBC (10/28/2024 4:13 AM EDT) WBC 4.5 3.8 - 10.8 10E3/uL 10/28/2024 5:09 AM EDT [facility] RBC 2.39(L) 4.20 - 5.80 10E6/uL 10/28/2024 5:09 AM EDT [facility] Hemoglobin 7.3(L) 13.2 - 17.1 g/dL 10/28/2024 5:09 AM EDT [facility] Hematocrit 21.0(L) 38.5 - 50.0 % 10/28/2024 5:09 AM EDT [facility] MCV 87.8 80.0 - 100.0 fL 10/28/2024 5:09 AM EDT [facility] MCH 30.5 27.0 - 33.0 pg 10/28/2024 5:09 AM EDT [facility] MCHC 34.7 32.0 - 36.0 g/dL 10/28/2024 5:09 AM EDT [facility] RDW 18.7(H) 11.0 - 15.0 % 10/28/2024 5:09 AM EDT [facility] Platelets 38(L) 140 - 400 10E3/uL 10/28/2024 5:09 AM EDT [facility] Comment: CNV Specimen checked for clots. None detected. MPV 7.6 7.5 - 11.5 fL 10/28/2024 5:09 AM EDT [facility] Whole Blood 10/28/2024 4:13 AM EDT 10/28/2024 4:41 AM EDT Kemar Sahni MD LAB BLOOD ORDERABLES Final Result [facility] [address] [facility]. [address] * (ABNORMAL) POC Glucose Monitoring Device (10/28/2024 4:04 AM EDT) POC Glucose Monitoring Device 103(H) 70 - 100 mg/dL 10/28/2024 4:05 AM EDT [facility] Blood 10/28/2024 4:04 AM EDT 10/28/2024 4:05 AM EDT Semaj Mcnair III, MD POINT OF CARE TEST ORDERABLES Final Result Performing Organization Address [facility] Co de Phone Number [facility] [address] * (ABNORMAL) POC Glucose Monitoring Device (10/28/2024 3:00 AM EDT) POC Glucose Monitoring Device 106(H) 70 - 100 mg/dL 10/28/2024 3:01 AM EDT [facility] Blood 10/28/2024 3:00 AM EDT 10/28/2024 3:01 AM EDT Semaj Mcnair III, MD POINT OF CARE TEST ORDERABLES Final Result [facility] [address] * (ABNORMAL) POC Glucose Monitoring Device (10/28/2024 2:32 AM EDT) POC Glucose Monitoring Device 109(H) 70 - 100 mg/dL 10/28/2024 2:33 AM EDT [facility] Blood 10/28/2024 2:32 AM EDT 10/28/2024 2:33 AM EDT us Semaj Mcnair III, MD POINT OF CARE TEST ORDERABLES Final Result [facility] [address] [facility]. [address] * (ABNORMAL) POC Glucose Monitoring Device (10/28/2024 2:14 AM EDT) POC Glucose Monitoring Device 115(H) 70 - 100 mg/dL 10/28/2024 2:15 AM EDT [facility] Blood 10/28/2024 2:14 AM EDT 10/28/2024 2:15 AM EDT us Semaj Mcnair III, MD POINT OF CARE TEST ORDERABLES Final Result [facility] [address] [facility]. [address] * (ABNORMAL) POC Glucose Monitoring Device (10/28/2024 2:03 AM EDT) POC Glucose Monitoring Device 101(H) 70 - 100 mg/dL 10/28/2024 2:04 AM EDT [facility] Blood 10/28/2024 2:03 AM EDT 10/28/2024 2:04 AM EDT us Semaj Mcnair III, MD POINT OF CARE TEST ORDERABLES Final Result [facility] [address] [facility] [id number] * Transfuse RBC [...] In All Channels) (10/28/2024 12:05 AM EDT) [facility] Citrated Kaolin Reaction Time (TEGECMOLIVER) 7.5 4.6 - 9.1 minutes 10/28/2024 1:22 AM EDT [facility] Citrated Kaolin W/Heparinase Reaction Time (TEGECMOLIVER) 7.7 4.3 - 8.3 minutes 10/28/2024 1:22 AM EDT [facility] Citrated Kaolin Maximum Amplitude (TEGECMOLIVER) 54.4 52.0 - 69.0 mm 10/28/2024 1:22 AM EDT [facility] Citrated Functional Fibrinogen W/Heparinase Maximum Amplitude(TEGEC MOLIVER) 20.4 15.0 - 34.0 mm 10/28/2024 1:22 AM EDT [facility] Citrated Rapid Teg W/Heparinase Maximum Amplitude (TEGECMOLIVER) 51.0(L) 53.0 - 69.0 mm 10/28/2024 1:22 AM EDT [facility] Citrated Kaolin w/Heparinase Percent Lysis (TEGECMOLIVER) 0.0 0.0 - 3.2 % 10/28/2024 1:22 AM EDT [facility] Whole Blood (Citrate) 10/28/2024 12:05 AM EDT 10/28/2024 12:09 AM EDT Kemar Sahni MD LAB BLOOD ORDERABLES Final Result [facility] [address] * Magnesium (10/28/2024 12:05 AM EDT) Magnesium 2.2 1.5 - 2.5 mg/dL 10/28/2024 1:59 AM EDT [facility] Plasma 10/28/2024 12:0 5 AM EDT 10/28/2024 12:11 AM EDT Kemar Sahni MD LAB BLOOD ORDERABLES Final Result Performing Organization Address City/[facility] Co de Phone Number [facility] [address] * (ABNORMAL) Renal Function Panel w/EGFR (10/28/2024 12:05 AM EDT) Sodium 144 133 - 146 mmol/L 10/28/2024 1:59 AM EDT [facility] Potassium 3.4(L) 3.5 - 5.3 mmol/L 10/28/2024 1:59 AM EDT [facility] Chloride 112(H) 98 - 110 mmol/L 10/28/2024 1:59 AM EDT [facility] CO2 19(L) 21 - 33 mmol/L 10/28/2024 1:59 AM EDT [facility] Anion Gap 13 3 - 16 mmol/L 10/28/2024 1:59 AM EDT [facility] BUN 59(H) 7 - 25 mg/dL 10/28/2024 1:59 AM EDT [facility] Creatinine 2.42(H) 0.60 - 1.30 mg/dL 10/28/2024 1:59 AM EDT [facility] Glucose 118(H) 70 - 100 mg/dL 10/28/2024 1:59 AM EDT [facility] Calcium 9.0 8.6 - 10.3 mg/dL 10/28/2024 1:59 AM EDT [facility] Phosphorus 5.3(H) 2.1 - 4.7 mg/dL 10/28/2024 1:59 AM EDT [facility] Albumin 3.1(L) 3.5 - 5.7 g/dL 10/28/2024 1:59 AM EDT [facility] Osmolality, Calculated 316(H) 278 - 305 mOsm/kg 10/28/2024 1:59 AM EDT [facility] EGFR 34 10/28/2024 1:59 AM EDT [facility] Comment:As of 2021, the [...] Sahni MD LAB BLOOD ORDERABLES Final Result [facility] [address] [id number] * (ABNORMAL) Differential (10/28/2024 12:05 AM EDT) Neutrophils Relative 88.6(H) 40.0 - 80.0 % 10/28/2024 12:41 AM EDT [facility] Lymphocytes Relative 2.5(L) 15.0 - 45.0 % 10/28/2024 12:41 AM EDT [facility] Monocytes Relative 6.1 0.0 - 12.0 % 10/28/2024 12:41 AM EDT [facility] Eosinophils Relative 2.4 0.0 - 8.0 % 10/28/2024 12:41 AM EDT [facility] Basophils Relative 0.4 0.0 - 1.0 % 10/28/2024 12:41 AM EDT [facility] nRBC 0 0 - 0 /100 WBC 10/28/2024 12:41 AM EDT [facility] Neutrophils Absolute 4,341 1,520 - 8,640 /uL 10/28/2024 12:41 AM EDT [facility] Lymphocytes Absolute 123(L) 570 - 4,860 /uL 10/28/2024 12:41 AM EDT [facility] Monocytes Absolute 299 0 - 1,296 /uL 10/28/2024 12:41 AM EDT [facility] Eosinophils Absolute 118 0 - 864 /uL 10/28/2024 12:41 AM EDT [facility] Basophils Absolute 20 0 - 108 /uL 10/28/2024 12:41 AM EDT [facility] Whole Blood 10/28/2024 12:0 5 AM EDT 10/28/2024 12:11 AM EDT Kemar Sahni MD LAB BLOOD ORDERABLES Final Result [facility] [address] [place] [address], [facility] * (ABNORMAL) CBC (10/28/2024 12:05 AM EDT) WBC 4.9 3.8 - 10.8 10E3/uL 10/28/2024 12:41 AM EDT [facility] RBC 2.18(L) 4.20 - 5.80 10E6/uL 10/28/2024 12:41 AM EDT [facility] Hemoglobin 6.7(L) 13.2 - 17.1 g/dL 10/28/2024 12:41 AM EDT [facility] Hematocrit 19.2(L) 38.5 - 50.0 % 10/28/2024 12:41 AM EDT [facility] MCV 87.8 80.0 - 100.0 fL 10/28/2024 12:41 AM EDT [facility] MCH 30.6 27.0 - 33.0 pg 10/28/2024 12:41 AM EDT [facility] MCHC 34.8 32.0 - 36.0 g/dL 10/28/2024 12:41 AM EDT [facility] RDW 19.6(H) 11.0 - 15.0 % 10/28/2024 12:41 AM EDT [facility] Platelets 45(L) 140 - 400 10E3/uL 10/28/2024 12:41 AM EDT [facility] Comment: CNV Specimen checked for clots. None detected. MPV 7.8 7.5 - 11.5 fL 10/28/2024 12:41 AM EDT [facility] Whole Blood 10/28/2024 12:0 5 AM EDT 10/28/2024 12:11 AM EDT Kemar Sahni MD LAB BLOOD ORDERABLES Final Result [facility] [address] [place] [address]. [address] * (ABNORMAL) POC Glucose Monitoring Device (10/28/2024 12:03 AM EDT) POC Glucose Monitoring Device 122(H) 70 - 100 mg/dL 10/28/2024 12:04 AM EDT [facility] Blood 10/28/2024 12:0 3 AM EDT 10/28/2024 12:04 AM EDT Semaj Mcnair III, MD POINT OF CARE TEST ORDERABLES Final Result [facility] [address] * (ABNORMAL) POC Glucose Monitoring Device (10/27/2024 10:03 PM EDT) POC Glucose Monitoring Device 127(H) 70 - 100 mg/dL 10/27/2024 10:03 PM EDT [facility] Blood 10/27/2024 10:0 3 PM EDT 10/27/2024 10:03 PM EDT Semaj Mcnair III, MD POINT OF CARE TEST ORDERABLES Final Result Performing Organization Address City/[facility] Co de Phone Number [facility] [address] * (ABNORMAL) POC Glucose Monitoring Device (10/27/2024 8:06 PM EDT) POC Glucose Monitoring Device 128(H) 70 - 100 mg/dL 10/27/2024 8:45 PM EDT [facility] Blood 10/27/2024 8:06 PM EDT 10/27/2024 8:45 PM EDT us Semaj Mcnair III, MD POINT OF CARE TEST ORDERABLES Final Result Performing Organization Address [facility] Co de Phone Number [facility] [address] [facility]. [address] * (ABNORMAL) POC Glucose Monitoring Device (10/27/2024 6:00 PM EDT) POC Glucose Monitoring Device 128(H) 70 - 100 mg/dL 10/27/2024 6:00 PM EDT [facility] Blood 10/27/2024 6:00 PM EDT 10/27/2024 6:00 PM EDT Semaj Mcnair III, MD POINT OF CARE TEST ORDERABLES Final Result Performing Organization Address City/[facility] Co de Phone Number [facility] [address] [facility]. [address] * Lactic Acid, STAT (10/27/2024 5:41 PM EDT) Lactate 0.5 0.5 - 2.2 mmol/L 10/27/2024 6:28 PM EDT [facility] Plasma 10/27/2024 5:41 PM EDT 10/27/2024 5:49 PM EDT Narrative [facility] - 10/27/2024 6:28 PM EDT Redraw us John Moreno MD LAB BLOOD ORDERABLES Final R esult [facility] [address] * (ABNORMAL) Hepatic Function Panel, STAT (10/27/2024 5:13 PM EDT) Total Bilirubin 1.7(H) 0.0 - 1.5 mg/dL 10/27/2024 5:50 PM EDT [facility] Bilirubin, Direct 1.17(H) 0.00 - 0.40 mg/dL 10/27/2024 5:50 PM EDT [facility] AST 60(H) 13 - 39 U/L 10/27/2024 5:50 PM EDT [facility] ALT 134(H) 7 - 52 U/L 10/27/2024 5:50 PM EDT [facility] Alkaline Phosphatase 27(L) 36 - 125 U/L 10/27/2024 5:50 PM EDT [facility] Total Protein 4.1(L) 6.4 - 8.9 g/dL 10/27/2024 5:50 PM EDT [facility] Albumin 2.9(L) 3.5 - 5.7 g/dL 10/27/2024 5:50 PM EDT [facility] Bilirubin, Indirect 0.53 0.00 - 1.10 mg/dL 10/27/2024 5:50 PM EDT [facility] Plasma 10/27/2024 5:13 PM EDT 10/27/2024 5:23 PM EDT us Shay Plata MD LAB BLOOD ORDERABLES Final Result [facility] [address] * (ABNORMAL) TEG-Bypass/ECMO/Liver HN (Factor function, Platelet/Fibrin Clot Strength w/Clot Breakdown, Heparinase In All Channels) (10/27/2024 5:13 PM EDT) Citrated Kaolin Reaction Time (TEGECMOLIVER) 8.0 4.6 - 9.1 minutes 10/27/2024 6:56 PM EDT [facility] Citrated Kaolin W/Heparinase Reaction Time (TEGECMOLIVER) 6.8 4.3 - 8.3 minutes 10/27/2024 6:56 PM EDT [facility] Citrated Kaolin Maximum Amplitude (TEGECMOLIVER) 55.4 52.0 - 69.0 mm 10/27/2024 6:56 PM EDT [facility] Citrated Functional Fibrinogen W/Heparinase Maximum Amplitude(TEGEC MOLIVER) 22.9 15.0 - 34.0 mm 10/27/2024 6:56 PM EDT [facility] Citrated Rapid Teg W/Heparinase Maximum Amplitude (TEGECMOLIVER) 50.8(L) 53.0 - 69.0 mm 10/27/2024 6:56 PM EDT [facility] Citrated Kaolin w/Heparinase Percent Lysis (TEGECMOLIVER) 0.1 0.0 - 3.2 % 10/27/2024 6:56 PM EDT [facility] Whole Blood (Citrate) 10/27/2024 5:13 PM EDT 10/27/2024 5:20 PM EDT Kemar Sahni MD LAB BLOOD ORDERABLES Final Result Performing Organization Address City/State/[facility] Co de Phone Number [facility] [address] [id number] * (ABNORMAL) Protime-INR (10/27/2024 5:13 PM EDT) Protime 15.2(H) 12.1 - 15.1 seconds 10/27/2024 5:40 PM EDT [facility] INR 1.1 0.9 - 1.1 10/27/2024 5:40 PM EDT [facility] Comment: RECOMMENDED THERAPEUTIC RANGES USING INR : Stable oral anticoagulant therapy: 2.0 - 3.0 Mechanical prosthetic heart valve: 2.5 - 3.5 Recurrent acute myocardial infarction: 2.5 - 3.5 Plasma 10/27/2024 5:13 PM EDT 10/27/2024 5:23 PM EDT Kemar Sahni MD LAB BLOOD ORDERABLES Final Result [facility] [address] * Magnesium (10/27/2024 5:13 PM EDT) Magnesium 2.4 1.5 - 2.5 mg/dL 10/27/2024 5:53 PM EDT [facility] Plasma 10/27/2024 5:13 PM EDT 10/27/2024 5:23 PM EDT Kemar Sahni MD LAB BLOOD ORDERABLES Final Result Performing Organization Address [facility] Co de Phone Number [facility] [address] * (ABNORMAL) Hepatic Function Panel (10/27/2024 5:13 PM EDT) Total Bilirubin 1.7(H) 0.0 - 1.5 mg/dL 10/27/2024 5:53 PM EDT [facility] Bilirubin, Direct 1.10(H) 0.00 - 0.40 mg/dL 10/27/2024 5:53 PM EDT [facility] AST 62(H) 13 - 39 U/L 10/27/2024 5:53 PM EDT [facility] ALT 134(H) 7 - 52 U/L 10/27/2024 5:53 PM EDT [facility] Alkaline Phosphatase 27(L) 36 - 125 U/L 10/27/2024 5:53 PM EDT [facility] Total Protein 4.1(L) 6.4 - 8.9 g/dL 10/27/2024 5:53 PM EDT [facility] Albumin 2.9(L) 3.5 - 5.7 g/dL 10/27/2024 5:53 PM EDT [facility] Bilirubin, Indirect 0.60 0.00 - 1.10 mg/dL 10/27/2024 5:53 PM EDT [facility] Plasma 10/27/2024 5:13 PM EDT 10/27/2024 5:23 PM EDT Kemar Sahni MD LAB BLOOD ORDERABLES Final Result [facility] [address] [place] [address], [facility] * (ABNORMAL) Renal Function Panel w/EGFR (10/27/2024 5:13 PM EDT) Sodium 142 133 - 146 mmol/L 10/27/2024 5:53 PM EDT [facility] Potassium 3.4(L) 3.5 - 5.3 mmol/L 10/27/2024 5:53 PM EDT [facility] Chloride 109 98 - 110 mmol/L 10/27/2024 5:53 PM EDT [facility] CO2 22 21 - 33 mmol/L 10/27/2024 5:53 PM EDT [facility] Anion Gap 11 3 - 16 mmol/L 10/27/2024 5:53 PM EDT [facility] BUN 61(H) 7 - 25 mg/dL 10/27/2024 5:53 PM EDT [facility] Creatinine 2.42(H) 0.60 - 1.30 mg/dL 10/27/2024 5:53 PM EDT [facility] Glucose 125(H) 70 - 100 mg/dL 10/27/2024 5:53 PM EDT [facility] Calcium 8.8 8.6 - 10.3 mg/dL 10/27/2024 5:53 PM EDT [facility] Phosphorus 5.7(H) 2.1 - 4.7 mg/dL 10/27/2024 5:53 PM EDT [facility] Albumin 2.9(L) 3.5 - 5.7 g/dL 10/27/2024 5:53 PM EDT [facility] Osmolality, Calculated 313(H) 278 - 305 mOsm/kg 10/27/2024 5:53 PM EDT [facility] EGFR 34 10/27/2024 5:53 PM EDT [facility] Comment:As of 2021, the [...] Sahni MD LAB BLOOD ORDERABLES Final Result [facility] [address] [place] [address], [facility] * (ABNORMAL) CBC (10/27/2024 5:13 PM EDT) WBC 4.9 3.8 - 10.8 10E3/uL 10/27/2024 6:14 PM EDT [facility] RBC 2.44(L) 4.20 - 5.80 10E6/uL 10/27/2024 6:14 PM EDT [facility] Hemoglobin 7.4(L) 13.2 - 17.1 g/dL 10/27/2024 6:14 PM EDT [facility] Hematocrit 21.4(L) 38.5 - 50.0 % 10/27/2024 6:14 PM EDT [facility] MCV 87.6 80.0 - 100.0 fL 10/27/2024 6:14 PM EDT [facility] MCH 30.3 27.0 - 33.0 pg 10/27/2024 6:14 PM EDT [facility] MCHC 34.6 32.0 - 36.0 g/dL 10/27/2024 6:14 PM EDT [facility] RDW 19.6(H) 11.0 - 15.0 % 10/27/2024 6:14 PM EDT [facility] Platelets 47(L) 140 - 400 10E3/uL 10/27/2024 6:14 PM EDT [facility] Comment: CNV Specimen checked for clots. None detected. MPV 8.1 7.5 - 11.5 fL 10/27/2024 6:14 PM EDT [facility] Whole Blood 10/27/2024 5:13 PM EDT 10/27/2024 5:23 PM EDT Kemar Sahni MD LAB BLOOD ORDERABLES Final Result [facility] [address] * (ABNORMAL) POC Glucose Monitoring Device (10/27/2024 3:57 PM EDT) [facility] POC Glucose Monitoring Device 131(H) 70 - 100 mg/dL 10/27/2024 3:58 PM EDT [facility] Blood 10/27/2024 3:57 PM EDT 10/27/2024 3:58 PM EDT Semaj Mcnair III, MD POINT OF CARE TEST ORDERABLES Final Result [facility] [address] * (ABNORMAL) CBC, STAT (10/27/2024 2:40 PM EDT) WBC 5.8 3.8 - 10.8 10E3/uL 10/27/2024 2:54 PM EDT [facility] RBC 2.43(L) 4.20 - 5.80 10E6/uL 10/27/2024 2:54 PM EDT [facility] Hemoglobin 7.5(L) 13.2 - 17.1 g/dL 10/27/2024 2:54 PM EDT [facility] Hematocrit 21.5(L) 38.5 - 50.0 % 10/27/2024 2:54 PM EDT [facility] MCV 88.2 80.0 - 100.0 fL 10/27/2024 2:54 PM EDT [facility] MCH 30.7 27.0 - 33.0 pg 10/27/2024 2:54 PM EDT [facility] MCHC 34.8 32.0 - 36.0 g/dL 10/27/2024 2:54 PM EDT [facility] RDW 19.1(H) 11.0 - 15.0 % 10/27/2024 2:54 PM EDT [facility] Platelets 50(L) 140 - 400 10E3/uL 10/27/2024 2:54 PM EDT [facility] MPV 7.5 7.5 - 11.5 fL 10/27/2024 2:54 PM EDT [facility] Whole Blood 10/27/2024 2:40 PM EDT 10/27/2024 2:44 PM EDT us John Moreno MD LAB BLOOD ORDERABLES Final R esult [facility] [address] [address], [facility] * (ABNORMAL) Blood Gas, Arterial, STAT (10/27/2024 2:40 PM EDT) O2 Sat, Arterial 98 10/27/2024 2:46 PM EDT [facility] FIO2 RA 10/27/2024 2:46 PM EDT [facility] pH, Arterial 7.37 7.35 - 7.45 10/27/2024 2:46 PM EDT [facility] pCO2, Arterial 35 35 - 45 mm Hg 10/27/2024 2:46 PM EDT [facility] pO2, Arterial 92 80 - 100 mm Hg 10/27/2024 2:46 PM EDT [facility] HCO3, Arterial 21(L) 22 - 26 mmol/L 10/27/2024 2:46 PM EDT [facility] CO2 Content,Arteri al 21(L) 23 - 27 mmol/L 10/27/2024 2:46 PM EDT [facility] Base Excess, Arterial -4.6(L) -2.0 - 3.0 mmol/L 10/27/2024 2:46 PM EDT [facility] %HBO2, Arterial 95.4 95.0 - 98.0 % 10/27/2024 2:46 PM EDT [facility] Carboxyhemoglo bin, Arterial 1.6 % 10/27/2024 2:46 PM EDT [facility] Comment: CARBOXYHEMOGLOBIN (CO) REFERENCE RANGES: Non-Smokers: <2 % Smokers: <8 % TOXIC: >20 % Methemoglobin, Arterial 1.0 0.0 - 1.5 % 10/27/2024 2:46 PM EDT [facility] Reduced hemoglobin, Arterial 2.1 0.0 - 5.0 % 10/27/2024 2:46 PM EDT [facility] Blood, Arterial 10/27/2024 2 :40 PM EDT 10/27/2024 2:44 PM EDT Narrative [facility] - 10/27/2024 2:46 PM EDT Post extubation John Moreno MD LAB BLOOD ORDERABLES Final R esult [facility] [address] * (ABNORMAL) POC Glucose Monitoring Device (10/27/2024 2:06 PM EDT) [facility] POC Glucose Monitoring Device 134(H) 70 - 100 mg/dL 10/27/2024 2:06 PM EDT [facility] Blood 10/27/2024 2:06 PM EDT 10/27/2024 2:06 PM EDT Semaj Mcnair III, MD POINT OF CARE TEST ORDERABLES Final Result Performing Organization Address [facility]/ZIP Co de Phone Number [facility] [address] * (ABNORMAL) Blood gas, arterial (10/27/2024 12:35 PM EDT) O2 Sat, Arterial 99 10/27/2024 12:46 PM EDT [facility] FIO2 SBT 30% 10/27/2024 12:46 PM EDT [facility] pH, Arterial 7.35 7.35 - 7.45 10/27/2024 12:46 PM EDT [facility] pCO2, Arterial 37 35 - 45 mm Hg 10/27/2024 12:46 PM EDT [facility] pO2, Arterial 182(H) 80 - 100 mm Hg 10/27/2024 12:46 PM EDT [facility] HCO3, Arterial 21(L) 22 - 26 mmol/L 10/27/2024 12:46 PM EDT [facility] CO2 Content,Arteri al 22(L) 23 - 27 mmol/L 10/27/2024 12:46 PM EDT [facility] Base Excess, Arterial -4.8(L) -2.0 - 3.0 mmol/L 10/27/2024 12:46 PM EDT [facility] %HBO2, Arterial 96.3 95.0 - 98.0 % 10/27/2024 12:46 PM EDT [facility] Carboxyhemoglo bin, Arterial 1.7 % 10/27/2024 12:46 PM EDT [facility] Comment: CARBOXYHEMOGLOBIN (CO) REFERENCE RANGES: Non-Smokers: <2 % Smokers: <8 % TOXIC: >20 % Methemoglobin, Arterial 1.4 0.0 - 1.5 % 10/27/2024 12:46 PM EDT [facility] Reduced hemoglobin, Arterial 0.6 0.0 - 5.0 % 10/27/2024 12:46 PM EDT [facility] Blood, Arterial 10/27/2024 1 2:35 PM EDT 10/27/2024 12:42 PM EDT Narrative [facility] - 10/27/2024 12:46 PM EDT Please obtain post SBT us Shay Sifuentes MD LAB BLOOD ORDERABLES Final Resu lt [facility] [address] [place] [address], [place] * (ABNORMAL) TEG-Bypass/ECMO/Liver HN (Factor function, Platelet/Fibrin Clot Strength w/Clot Breakdown, Heparinase In All Channels) (10/27/2024 12:07 PM EDT) Citrated Kaolin Reaction Time (TEGECMOLIVER) 7.9 4.6 - 9.1 minutes 10/27/2024 1:24 PM EDT [facility] Citrated Kaolin W/Heparinase Reaction Time (TEGECMOLIVER) 8.3 4.3 - 8.3 minutes 10/27/2024 1:24 PM EDT [facility] Citrated Kaolin Maximum Amplitude (TEGECMOLIVER) 52.0 52.0 - 69.0 mm 10/27/2024 1:24 PM EDT [facility] Citrated Functional Fibrinogen W/Heparinase Maximum Amplitude(TEGEC MOLIVER) 20.1 15.0 - 34.0 mm 10/27/2024 1:24 PM EDT [facility] Citrated Rapid Teg W/Heparinase Maximum Amplitude (TEGECMOLIVER) 49.4(L) 53.0 - 69.0 mm 10/27/2024 1:24 PM EDT [facility] Citrated Kaolin w/Heparinase Percent Lysis (TEGECMOLIVER) 0.0 0.0 - 3.2 % 10/27/2024 1:24 PM EDT [facility] Whole Blood (Citrate) 10/27/2024 12:07 PM EDT 10/27/2024 12:09 PM EDT Kemar Sahni MD LAB BLOOD ORDERABLES Final Result [facility] [address] [place] [address], [facility] * (ABNORMAL) POC Glucose Monitoring Device (10/27/2024 12:01 PM EDT) POC Glucose Monitoring Device 121(H) 70 - 100 mg/dL 10/27/2024 12:02 PM EDT [facility] Blood 10/27/2024 12:0 1 PM EDT 10/27/2024 12:01 PM EDT Semaj Mcnair III, MD POINT OF CARE TEST ORDERABLES Final Result Performing Organization Address City/[facility] Co de Phone Number [facility] [address] * (ABNORMAL) POC Glucose Monitoring Device (10/27/2024 10:59 AM EDT) POC Glucose Monitoring Device 126(H) 70 - 100 mg/dL 10/27/2024 11:10 AM EDT [facility] Blood 10/27/2024 10:5 9 AM EDT 10/27/2024 11:10 AM EDT us Semaj Mcnair III, MD POINT OF CARE TEST ORDERABLES Final Result Performing Organization Address [facility] de Phone Number [facility] [address] * ECG 12 lead (MUSE) (10/27/2024 10:17 AM EDT) 10/27/2024 10:1 7 AM EDT Narrative MUSE - 10/27/2024 2:51 PM EDT Ventricular Rate: 91 BPM Atrial Rate: 91 BPM P-R Interval: 168 ms QRS Duration: 90 ms QT: 274 ms QTc: 337 ms P [place]angel[place]: 60 degrees R [place]: -30 degrees T [place]angel[place]: -15 degrees Diagnosis Line: NORMAL SINUS RHYTHM ^ LEFT AXIS DEVIATION, LEFT ANTERIOR HEMIBLOCK ^ NONSPECIFIC T WAVE CHANGE ^ ABNORMAL ECG ^ ^ Confirmed by MD ROLLY, [facility] ([id number]) on 10/27/2024 2:51:52 PM Shay Sifuentes MD ECG ORDERABLES Final Result Performing Organization Address City/[facility] Co de Phone Number MUSE * (ABNORMAL) POC Glucose Monitoring Device (10/27/2024 10:00 AM EDT) POC Glucose Monitoring Device 121(H) 70 - 100 mg/dL 10/27/2024 10:01 AM EDT [facility] Blood 10/27/2024 10:0 0 AM EDT 10/27/2024 10:01 AM EDT Semaj Mcnair III, MD POINT OF CARE TEST ORDERABLES Final Result [facility] [address] [place] [address], [facility] * US Renal Transplant (10/27/2024 9:51 [...] US ORDERABLES Final Result * US Duplex [id number] Comp (10/27/2024 9:51 AM EDT) Anatomical Region [...] EXAM: US ABDOMEN LIMITED EXAM: US DUPLEX [id number] COMPLETE INDICATION: Post-op liver transplant COMPARISON: None [...] absent.. Pancreas: Obscured by overlying bowel gas. [place] right kidney: 12.5 cm in length. Normal [...] EXAM: US ABDOMEN LIMITED EXAM: US DUPLEX [id number] COMPLETE INDICATION: Post-op liver transplant COMPARISON: None [...] absent.. Pancreas: Obscured by overlying bowel gas. [place] right kidney: 12.5 cm in length. Normal [...] EXAM: US ABDOMEN LIMITED EXAM: US DUPLEX [id number] COMPLETE INDICATION: Post-op liver transplant COMPARISON: None [...] absent.. Pancreas: Obscured by overlying bowel gas. [place] right kidney: 12.5 cm in length. Normal [...] EXAM: US ABDOMEN LIMITED EXAM: US DUPLEX [id number] COMPLETE INDICATION: Post-op liver transplant COMPARISON: None [...] absent.. Pancreas: Obscured by overlying bowel gas. [place] right kidney: 12.5 cm in length. Normal [...] - 100 mg/dL 10/27/2024 9:06 AM EDT [facility] Blood 10/27/2024 9:05 AM EDT 10/27/2024 9:06 AM EDT Semaj Mcnair III, MD POINT OF CARE TEST ORDERABLES Final Result [facility] [address] [place] [address], [facility] * X-ray Portable Chest (10/27/2024 8:58 [...] - 15.1 seconds 10/27/2024 8:35 AM EDT [facility] INR 1.2(H) 0.9 - 1.1 10/27/2024 8:35 AM EDT [facility] Comment: RECOMMENDED THERAPEUTIC RANGES USING INR : Stable oral anticoagulant therapy: 2.0 - 3.0 Mechanical prosthetic heart valve: 2.5 - 3.5 Recurrent acute myocardial infarction: 2.5 - 3.5 Plasma 10/27/2024 8:16 AM EDT 10/27/2024 8:20 AM EDT us John Moreno MD LAB BLOOD ORDERABLES Final R esult [facility] [address] [place] [address], [facility] * Magnesium (10/27/2024 8:00 AM EDT) Magnesium 1.8 1.5 - 2.5 mg/dL 10/27/2024 10:50 AM EDT [facility] Plasma 10/27/2024 8:00 AM EDT 10/27/2024 10:31 AM EDT us Kemar Sahni MD LAB BLOOD ORDERABLES Final Result [facility] [address] [place] [address], [facility] * (ABNORMAL) Renal Function Panel w/EGFR (10/27/2024 8:00 AM EDT) Sodium 142 133 - 146 mmol/L 10/27/2024 10:18 AM EDT [facility] Potassium 3.0(L) 3.5 - 5.3 mmol/L 10/27/2024 10:18 AM EDT [facility] Chloride 109 98 - 110 mmol/L 10/27/2024 10:18 AM EDT [facility] CO2 21 21 - 33 mmol/L 10/27/2024 10:18 AM EDT [facility] Anion Gap 12 3 - 16 mmol/L 10/27/2024 10:18 AM EDT [facility] BUN 59(H) 7 - 25 mg/dL 10/27/2024 10:18 AM EDT [facility] Creatinine 2.54(H) 0.60 - 1.30 mg/dL 10/27/2024 10:18 AM EDT [facility] Glucose 111(H) 70 - 100 mg/dL 10/27/2024 10:18 AM EDT [facility] Calcium 9.1 8.6 - 10.3 mg/dL 10/27/2024 10:18 AM EDT [facility] Phosphorus 5.5(H) 2.1 - 4.7 mg/dL 10/27/2024 10:18 AM EDT [facility] Albumin 3.0(L) 3.5 - 5.7 g/dL 10/27/2024 10:18 AM EDT [facility] Osmolality, Calculated 311(H) 278 - 305 mOsm/kg 10/27/2024 10:18 AM EDT [facility] EGFR 32 10/27/2024 10:18 AM EDT [facility] Comment:As of 2021, the [...] Sahni MD LAB BLOOD ORDERABLES Final Result [facility] [address] [place] [address], [facility] * (ABNORMAL) Hepatic Function Panel, STAT (10/27/2024 8:00 AM EDT) Total Bilirubin 1.3 0.0 - 1.5 mg/dL 10/27/2024 8:51 AM EDT [facility] Bilirubin, Direct 0.93(H) 0.00 - 0.40 mg/dL 10/27/2024 8:51 AM EDT [facility] AST 88(H) 13 - 39 U/L 10/27/2024 8:51 AM EDT [facility] ALT 149(H) 7 - 52 U/L 10/27/2024 8:51 AM EDT [facility] Alkaline Phosphatase 26(L) 36 - 125 U/L 10/27/2024 8:51 AM EDT [facility] Total Protein 4.0(L) 6.4 - 8.9 g/dL 10/27/2024 8:51 AM EDT [facility] Albumin 3.0(L) 3.5 - 5.7 g/dL 10/27/2024 8:51 AM EDT [facility] Bilirubin, Indirect 0.37 0.00 - 1.10 mg/dL 10/27/2024 8:51 AM EDT [facility] Plasma 10/27/2024 8:00 AM EDT 10/27/2024 8:20 AM EDT us Semaj Mcnair III, MD LAB BLOOD ORDERABLE S Final Result Performing Organization Address [facility] Co de Phone Number [facility] [address] * (ABNORMAL) Lactic Acid, STAT (10/27/2024 8:00 AM EDT) Lactate 0.4(L) 0.5 - 2.2 mmol/L 10/27/2024 8:43 AM EDT [facility] Plasma 10/27/2024 8:00 AM EDT 10/27/2024 8:20 AM EDT us Semaj Mcnair III, MD LAB BLOOD ORDERABLE S Final Result Performing Organization Address [facility] de Phone Number [facility] [address] [place] [address] * (ABNORMAL) Blood Gas, Arterial, STAT (10/27/2024 8:00 AM EDT) O2 Sat, Arterial 100 10/27/2024 8:23 AM EDT [facility] pH, Arterial 7.36 7.35 - 7.45 10/27/2024 8:23 AM EDT [facility] pCO2, Arterial 37 35 - 45 mm Hg 10/27/2024 8:23 AM EDT [facility] pO2, Arterial 245(H) 80 - 100 mm Hg 10/27/2024 8:23 AM EDT [facility] HCO3, Arterial 22 22 - 26 mmol/L 10/27/2024 8:23 AM EDT [facility] CO2 Content,Arteri al 22(L) 23 - 27 mmol/L 10/27/2024 8:23 AM EDT [facility] Base Excess, Arterial -4.2(L) -2.0 - 3.0 mmol/L 10/27/2024 8:23 AM EDT [facility] %HBO2, Arterial 96.5 95.0 - 98.0 % 10/27/2024 8:23 AM EDT [facility] Carboxyhemoglo bin, Arterial 2.2 % 10/27/2024 8:23 AM EDT [facility] Comment: CARBOXYHEMOGLOBIN (CO) REFERENCE RANGES: Non-Smokers: <2 % Smokers: <8 % TOXIC: >20 % Methemoglobin, Arterial 1.2 0.0 - 1.5 % 10/27/2024 8:23 AM EDT [facility] Reduced hemoglobin, Arterial 0.0 0.0 - 5.0 % 10/27/2024 8:23 AM EDT [facility] Blood, Arterial 10/27/2024 8 :00 AM EDT 10/27/2024 8:19 AM EDT Narrative [facility] - 10/27/2024 8:23 AM EDT Specimen is beyond 15 minutes from time of collection. Results may be compromised. Review results critically. Kemar Sahni MD LAB BLOOD ORDERABLES Final Result Performing Organization Address City/State/[facility] Co de Phone Number [facility] [address] * (ABNORMAL) TEG-Bypass/ECMO/Liver HN (Factor function, Platelet/Fibrin Clot Strength w/Clot Breakdown, Heparinase In All Channels) (10/27/2024 8:00 AM EDT) Citrated Kaolin Reaction Time (TEGECMOLIVER) 7.8 4.6 - 9.1 minutes 10/27/2024 9:39 AM EDT [facility] Citrated Kaolin W/Heparinase Reaction Time (TEGECMOLIVER) 8.0 4.3 - 8.3 minutes 10/27/2024 9:39 AM EDT [facility] Citrated Kaolin Maximum Amplitude (TEGECMOLIVER) 52.7 52.0 - 69.0 mm 10/27/2024 9:39 AM EDT [facility] Citrated Functional Fibrinogen W/Heparinase Maximum Amplitude(TEGEC MOLIVER) 19.0 15.0 - 34.0 mm 10/27/2024 9:39 AM EDT [facility] Citrated Rapid Teg W/Heparinase Maximum Amplitude (TEGECMOLIVER) 49.5(L) 53.0 - 69.0 mm 10/27/2024 9:39 AM EDT [facility] Citrated Kaolin w/Heparinase Percent Lysis (TEGECMOLIVER) 0.0 0.0 - 3.2 % 10/27/2024 9:39 AM EDT [facility] Whole Blood (Citrate) 10/27/2024 8:00 AM EDT 10/27/2024 8:19 AM EDT Kemar Sahni MD LAB BLOOD ORDERABLES Final Result Performing Organization Address City/[facility] Co de Phone Number [facility] [address] * (ABNORMAL) Katie-Watkins virus VCA IgG Antibody (10/27/2024 8:00 AM EDT) Pathologist [facility] EBV VCA IgG Positive( A) Negative 10/27/2024 11:30 AM EDT [facility] Comment:Presence of detectab le VCA IgG antibodies. 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 EBV IGG NUM 314.00(H) 0.00 - 17.99 U/mL 10/27/2024 11:30 AM EDT [facility] Serum 10/27/2024 8:00 AM EDT 10/27/2024 8:20 AM EDT Kemar Sahni MD LAB BLOOD ORDERABLES Final Result [facility] [address] * Hemoglobin A1c (10/27/2024 8:00 AM EDT) Hemoglobin A1C 5.0 4.0 - 5.6 % 10/27/2024 11:12 AM EDT [facility] Comment: Hemoglobin A1c Interpretation [...] City/[facility]/ZIP Co de Phone Number [facility] [address] [facility]. [address] * (ABNORMAL) POC Glucose Monitoring Device (10/27/2024 7:59 AM EDT) [facility] POC Glucose Monitoring Device 113(H) 70 - 100 mg/dL 10/27/2024 7:59 AM EDT [facility] Blood 10/27/2024 7:59 AM EDT 10/27/2024 7:59 AM EDT Semaj Mcnair III, MD POINT OF CARE TEST ORDERABLES Final Result Performing Organization Address [facility] Co de Phone Number [facility] [address] [facility]. [address] * X-ray Abdomen AP view (10/27/2024 [...] MD at 10/27/2024 7:49 AM EDT us Semaj Mcnair III, MD IMG DIAGNOSTIC IMAG ING ORDERABLES Final Result * Transfuse RBC (10/27/2024 6:29 AM EDT) Ben Blake MD NURSING TREATMENT ORDERABLES - BLOOD ADMIN Final Result * Prepare Cryoprecipitate, 1 Units (10/27/2024 6:16 AM EDT) Product Code D2760O65 HCLL Unit Number [id number] HCLL Dispense Status Presumed Transfused_PT HCLL Blood Expiration Date [id number] HCLL Coding System HQBL197 HCLL Product Code H7436K17 HCLL Unit Number [id number] HCLL Dispense Status Presumed Transfused_PT HCLL Blood Expiration Date [id number] HCLL Coding System EPWB194 HCLL Blood Bank Product John Pina MD BLOOD BANK PRODUCT ORDERABLES F inal Result Performing Organization Address [facility] Co de Phone Number HCLL * Prepare Platelets, leukoreduced, 1 Units (10/27/2024 6:16 AM EDT) Product Code X0381Z87 HCLL Unit Number [id number] HCLL Dispense Status Presumed Transfused_PT HCLL Blood Expiration Date 957446741970 HCLL Coding System XIYV594 HCLL Blood Bank Product Eber Quinones MD BLOOD BANK PRODUCT ORDER PAL Final Result Performing Organization Address [facility] de Phone Number HCLL * Prepare Cryoprecipitate, 1 Units (10/27/2024 6:16 AM EDT) Product Code Y2898B22 HCLL Unit Number [id number] HCLL Dispense Status Presumed Transfused_PT HCLL Blood Expiration Date HCLL Coding System [id number] HCLL Product Code W2431M45 HCLL Unit Number [id number] HCLL Dispense Status Presumed Transfused_PT HCLL Blood Expiration Date 213711186351 HCLL Coding System CPPI174 HCLL Blood Bank Product Eber Quinones MD BLOOD BANK PRODUCT ORDER PAL Final Result Performing Organization Address [facility] Co de Phone Number HCLL * Prepare Fresh Frozen Plasma, 10 Units (10/27/2024 6:16 AM EDT) Product Code Q5555V14 HCLL Unit Number [id number] HCLL Dispense Status Presumed Transfused_PT HCLL Blood Expiration Date HCLL Coding System YBIE267 HCLL Product Code J3079Y16 HCLL Unit Number [id number] HCLL Dispense Status Presumed Transfused_PT HCLL Blood Expiration Date HCLL Coding System VZMT029 HCLL Product Code F9149K08 HCLL Unit Number [id number] HCLL Dispense Status Presumed Transfused_PT HCLL Blood Expiration Date HCLL Coding System OBKM786 HCLL Product Code D1580E94 HCLL Unit Number [id number] HCLL Dispense Status Presumed Transfused_PT HCLL Blood Expiration Date HCLL Coding System JDLA627 HCLL Product Code D1093E51 HCLL Unit Number [id number] HCLL Dispense Status Released from Crossmatch_RE HCLL Blood Expiration Date 419031931021 HCLL Coding System NVUM680 HCLL Product Code T9465P45 HCLL Unit Number [id number] HCLL Dispense Status Released from Crossmatch_RE HCLL Blood Expiration Date HCLL Coding System BRDV231 HCLL Product Code P0539Y27 HCLL Unit Number [id number] HCLL Dispense Status Presumed Transfused_PT HCLL Blood Expiration Date HCLL Coding System SCKN080 HCLL Product Code W0549G04 HCLL Unit Number [id number] HCLL Dispense Status Presumed Transfused_PT HCLL Blood Expiration Date HCLL Coding System GSKO329 HCLL Product Code F6658Q02 HCLL Unit Number [id number] HCLL Dispense Status Presumed Transfused_PT HCLL Blood Expiration Date HCLL Coding System RPWQ950 HCLL Product Code U5536S20 HCLL Unit Number [id number] HCLL Dispense Status Presumed Transfused_PT HCLL Blood Expiration Date [id number] HCLL Coding System RRBN329 HCLL Blood Bank Product us Leandra Og MD BLOOD BANK PRODUCT ORD ERABLES Final Result Performing Organization Address City/[facility]/ZIP Co de Phone Number HCLL * Prepare Platelets, leukoreduced, 1 Units (10/27/2024 6:16 AM EDT) Product Code O6050X18 HCLL Unit Number [id number] HCLL Dispense Status Presumed Transfused_PT HCLL Blood Expiration Date [id number] HCLL Coding System WUTD116 HCLL Blood Bank Product us Ben Blake MD BLOOD BANK PRODUCT ORDERABLES Final Result Performing Organization Address [facility] de Phone Number HCLL * Prepare Fresh Frozen Plasma (10/27/2024 6:15 AM EDT) Product Code K4335G08 HCLL Unit Number [id number] HCLL Dispense Status Presumed Transfused_PT HCLL Blood Expiration Date HCLL Coding System CZLU750 HCLL Product Code H5113S75 HCLL Unit Number [id number] HCLL Dispense Status Released from Crossmatch_RE HCLL Blood Expiration Date HCLL Coding System LSUI482 HCLL Product Code N6968Y44 HCLL Unit Number [id number] HCLL Dispense Status Presumed Transfused_PT HCLL Blood Expiration Date HCLL Coding System EDRQ411 HCLL Product Code R7036X05 HCLL Unit Number [id number] HCLL Dispense Status Presumed Transfused_PT HCLL Blood Expiration Date HCLL Coding System RTOS757 HCLL Product Code P8038A06 HCLL Unit Number [id number] HCLL Dispense Status Released from Crossmatch_RE HCLL Blood Expiration Date HCLL Coding System TDFZ972 HCLL us Attending Provider Unknown BLOOD BANK PRODUCT OR DERABLES Final Result Performing Organization Address City/[facility] Co de Phone Number HCLL * Prepare RBC, leukoreduced (10/27/2024 6:15 AM EDT) Product Code O6297I71 HCLL Unit Number [id number] HCLL Dispense Status Presumed Transfused_PT HCLL Blood Expiration Date 071944453308 HCLL Coding System FAMM430 HCLL Product Code J3666D76 HCLL Unit Number [id number] HCLL Dispense Status Released from Crossmatch_RE HCLL Blood Expiration Date HCLL Coding System HKGE850 HCLL Product Code E2682N10 HCLL Unit Number [id number] HCLL Dispense Status Released from Crossmatch_RE HCLL Blood Expiration Date 817128334679 HCLL Coding System HRNC852 HCLL Product Code Z6407W13 HCLL Unit Number [id number] HCLL Dispense Status Released from Crossmatch_RE HCLL Blood Expiration Date 138989800412 HCLL Coding System IUFW395 HCLL Product Code R1733E14 HCLL Unit Number [id number] HCLL Dispense Status Released from Crossmatch_RE HCLL Blood Expiration Date 990530340283 HCLL Coding System LZIX502 HCLL us Attending Provider Unknown BLOOD BANK PRODUCT OR DERABLES Final Result HCLL * Prepare RBC, leukoreduced, 10 Units (10/27/2024 6:15 AM EDT) Product Code P4223R47 HCLL Unit Number [id number] HCLL Dispense Status Presumed Transfused_PT HCLL Blood Expiration Date 877161554429 HCLL Coding System LXZK634 HCLL Product Code U4024Y00 HCLL Unit Number [id number] HCLL Dispense Status Presumed Transfused_PT HCLL Blood Expiration Date 504666216869 HCLL Coding System KHNZ689 HCLL Product Code X6650K68 HCLL Unit Number [id number] HCLL Dispense Status Presumed Transfused_PT HCLL Blood Expiration Date 457893684881 HCLL Coding System JEVD742 HCLL Product Code U8915O05 HCLL Unit Number [id number] HCLL Dispense Status Presumed Transfused_PT HCLL Blood Expiration Date 823057302071 HCLL Coding System TNWK335 HCLL Product Code N7542V99 HCLL Unit Number [id number] HCLL Dispense Status Presumed Transfused_PT HCLL Blood Expiration Date HCLL Coding System WDUM035 HCLL Product Code C3724B39 HCLL Unit Number [id number] HCLL Dispense Status Presumed Transfused_PT HCLL Blood Expiration Date 051465998085 HCLL Coding System BTDZ899 HCLL Product Code U9796X69 HCLL Unit Number [id number] HCLL Dispense Status Presumed Transfused_PT HCLL Blood Expiration Date 224003819544 HCLL Coding System JWRW823 HCLL Product Code I5526Q03 HCLL Unit Number [id number] HCLL Dispense Status Presumed Transfused_PT HCLL Blood Expiration Date 400523863026 HCLL Coding System TIGY978 HCLL Product Code S0045H84 HCLL Unit Number [id number] HCLL Dispense Status Presumed Transfused_PT HCLL Blood Expiration Date 752233730743 HCLL Coding System ZGSS456 HCLL Product Code P0997R27 HCLL Unit Number [id number] HCLL Dispense Status Presumed Transfused_PT HCLL Blood Expiration Date 221806045735 HCLL Coding System ZTRD363 HCLL Blood Bank Product us Leandra Og MD BLOOD BANK PRODUCT ORD ERABLES Final Result HCLL * Transfuse Platelets (10/27/2024 6:09 AM EDT) us Ben Blake MD NURSING TREATMENT ORDERABLES - BLOOD ADMIN Final Result * (ABNORMAL) Arterial Blood Gas Panel (10/27/2024 6:09 AM EDT) O2Sat (ABGP) 100 10/27/2024 6:17 AM EDT [facility] pH (ABGP) 7.30(L) 7.35 - 7.45 10/27/2024 6:17 AM EDT [facility] PCO2 (ABGP) 41 35 - 45 mm Hg 10/27/2024 6:17 AM EDT [facility] PO2 (ABGP) 192(H) 80 - 100 mm Hg 10/27/2024 6:17 AM EDT [facility] HCO3 (ABGP) 21(L) 22 - 26 mmol/L 10/27/2024 6:17 AM T [facility] CO2 Content (ABGP) 22(L) 23 - 27 mmol/L 10/27/2024 6:17 AM [facility] Base Excess (ABGP) -5.7(L) -2.0 - 3.0 mmol/L 10/27/2024 6:17 AM [facility] Sodium (ABGP) 138 136 - 146 mEq/L 10/27/2024 6:17 AM [facility] Potassium (ABGP) 3.3(L) 3.5 - 5.0 mEq/L 10/27/2024 6:17 AM [facility] Comment:In the event of in-v itro hemolysis, potassium results may be falsely elevated. Always interpret lab results in conjunction with clinical findings. If hemolysis is suspected, a serum sample may be collected for repeat assessment of potassium. Calcium, Free (ABGP) 5.28 4.50 - 5.30 mg/dL 10/27/2024 6:17 AM [facility] Glucose (ABGP) 112(H) 70 - 100 mg/dL 10/27/2024 6:17 AM [facility] Comment:There is interferenc e with whole blood glucose results on this method when Hematocrit is <25% or >60%. HCT (ABGP) 20.0(L) 40.0 - 52.0 % 10/27/2024 6:17 AM [facility] HGB (ABGP) 6.5(L) 14.0 - 18.0 g/dL 10/27/2024 6:17 AM [facility] %HBO2 (ABGP) 96.8 95.0 - 98.0 % 10/27/2024 6:17 AM EDT [facility] Carboxyhgb (ABGP) 2.1 % 025 6:17 AM EDT [facility] Comment: CARBOXYHEMOGLOBIN (CO) REFERENCE RANGES: Non-Smokers: <2 % Smokers: <8 % TOXIC: >20 % Methemoglobin (ABGP) 1.0 0.0 - 1.5 % 10/27/2024 6:17 AM EDT [facility] Reduced Hemoglobin (ABGP) 0.2 0.0 - 5.0 % 10/27/2024 6:17 AM EDT [facility] Lactic Acid (ABGP) 0.4(L) 0.5 - 1.6 mmol/L 10/27/2024 6:17 AM EDT [facility] Blood, Arterial 10/27/2024 6 :09 AM EDT 10/27/2024 6:14 AM EDT Ben Blake MD LAB BLOOD ORDERABLES Final Re sult [facility] [address] * Transfuse Fresh Frozen Plasma (10/27/2024 5:49 AM EDT) us Ben Blake MD NURSING TREATMENT ORDERABLES - BLOOD ADMIN Final Result * Transfuse Cryoprecipitate (10/27/2024 4:56 AM EDT) us Ben Balke MD NURSING TREATMENT ORDERABLES - BLOOD ADMIN Final Result * Transfuse Cryoprecipitate (10/27/2024 4:49 AM EDT) us Ben Blake MD NURSING TREATMENT ORDERABLES - BLOOD ADMIN Final Result * (ABNORMAL) POC Glucose Monitoring Device (10/27/2024 4:46 AM EDT) Pathologist [facility] POC Glucose Monitoring Device 124(H) 70 - 100 mg/dL 10/27/2024 4:47 AM EDT [facility] Blood 10/27/2024 4:46 AM EDT 10/27/2024 4:47 AM EDT Semaj Mcnair III, MD POINT OF CARE TEST ORDERABLES Final Result [facility] [address] [address], [facility] * Transfuse Platelets (10/27/2024 4:24 AM EDT) [...] O2Sat (ABGP) 100 10/27/2024 3:21 AM EDT [facility] pH (ABGP) 7.32(L) 7.35 - 7.45 10/27/2024 3:21 AM EDT [facility] PCO2 (ABGP) 38 35 - 45 mm Hg 10/27/2024 3:21 AM EDT [facility] PO2 (ABGP) 176(H) 80 - 100 mm Hg 10/27/2024 3:21 AM EDT [facility] HCO3 (ABGP) 20(L) 22 - 26 mmol/L 10/27/2024 3:21 AM EDT [facility] CO2 Content (ABGP) 21(L) 23 - 27 mmol/L 10/27/2024 3:21 AM EDT [facility] Base Excess (ABGP) -6.0(L) -2.0 - 3.0 mmol/L 10/27/2024 3:21 AM EDT [facility] Sodium (ABGP) 138 136 - 146 mEq/L 10/27/2024 3:21 AM EDT [facility] Potassium (ABGP) 3.0(L) 3.5 - 5.0 mEq/L 10/27/2024 3:21 AM EDT [facility] Comment:In the event of in-v itro hemolysis, potassium results may be falsely elevated. Always interpret lab results in conjunction with clinical findings. If hemolysis is suspected, a serum sample may be collected for repeat assessment of potassium. Calcium, Free (ABGP) 5.28 4.50 - 5.30 mg/dL 10/27/2024 3:21 AM EDT [facility] Glucose (ABGP) 108(H) 70 - 100 mg/dL 10/27/2024 3:21 AM EDT [facility] Comment:There is interferenc e with whole blood glucose results on this method when Hematocrit is <25% or >60%. HCT (ABGP) 22.0(L) 40.0 - 52.0 % 10/27/2024 3:21 AM EDT [facility] HGB (ABGP) 7.3(L) 14.0 - 18.0 g/dL 10/27/2024 3:21 AM EDT [facility] %HBO2 (ABGP) 97.3 95.0 - 98.0 % 10/27/2024 3:21 AM EDT [facility] Carboxyhgb (ABGP) 1.9 % 025 3:21 AM EDT [facility] Comment: CARBOXYHEMOGLOBIN (CO) REFERENCE RANGES: Non-Smokers: <2 % Smokers: <8 % TOXIC: >20 % Methemoglobin (ABGP) 0.8 0.0 - 1.5 % 10/27/2024 3:21 AM EDT [facility] Reduced Hemoglobin (ABGP) 0.0 0.0 - 5.0 % 10/27/2024 3:21 AM EDT [facility] Lactic Acid (ABGP) 0.3(L) 0.5 - 1.6 mmol/L 10/27/2024 3:21 AM EDT [facility] Blood, Arterial 10/27/2024 3 :07 AM EDT 10/27/2024 3:14 AM EDT us Ben Blake MD LAB BLOOD ORDERABLES Final Re sult [facility] [address] [place], [place] [address] * Surgical Pathology Exam (10/27/2024 2:38 AM EDT) Tissue LEFT KIDNEY STRUCTURE / Unknown 10/27/2024 2:38 AM EDT Narrative [facility] - 10/27/2024 12:00 AM EDT CASE: [id number] PATIENT: BLAIR GILBERT Clinical History: Transplant kidney with bile duct reconstruction Pre-Operative Diagnosis: Acute kidney injury superimposed on CKD Post-Operative Diagnosis: None Given Specimen(s) Submitted: A. baseline renal biopsy ; B. right lobe liver biopsy; C. left lobe liver biopsy CPT Code(s): 93512 X 1; 94046 X 2; 94846 X 4 Additional Information: FINAL DIAGNOSIS: A. [...] parenchyma, which is entirely submitted in cassette [id number]. (NAA Mckeon/rr) B. Received in formalin, labeled with the patient's name Blair Gilbert and right lobe liver biopsy are two green-brown tissue cores measuring 1.8 and 2.0 cm in length, each with a diameter of 0.1 cm, which are entirely submitted between blue biopsy sponges in cassette [id number]. (NAA Mkceon/ns) C. Received in formalin, labeled with the [...] Pathologist signing this report is located at [facility], [address] [place] [address], [id number], , CLIA ID: [id number] ADDENDUM: A. Kidney, allograft, baseline, wedge biopsy: [...] Pathologist signing this report is located at [facility], [address] [place] [address], [id number], , CLIA ID: [id number] us Kemar Sahni MD PATHOLOGY/CYTOLOGY ORDERABL ES Edited Result - Final [facility] * Anaerobic culture (10/27/2024 2:15 AM EDT) Culture Result No Anaerobes Isolated in 5 Days [facility] Fluid SPECIMEN FROM KIDNEY / Unknown 10/27/2024 2:15 AM EDT 10/27/2024 4:24 AM EDT Narrative [facility] - 10/31/2024 11:43 AM EDT 1) perfusate Semaj Mcnair III, MD MICROBIOLOGY - GENE RAL ORDERABLES Final Result Performing Organization Address [facility] Co de Phone Number [facility] [address] [facility]. [address] * Fungus culture (10/27/2024 2:15 AM EDT) Culture Result No Fungus Isolated At 4 Weeks [facility] Fluid SPECIMEN FROM KIDNEY / Unknown 10/27/2024 2:15 AM EDT 10/27/2024 4:24 AM EDT Narrative [facility] - 11/24/2024 7:52 AM EDT 1) perfusate Semaj Mcnair III, MD MICROBIOLOGY - GENE RAL ORDERABLES Final Result Performing Organization Address [facility] Co de Phone Number [facility] [address] [facility]. [address] * Routine Culture plus Stain (10/27/2024 2:15 AM EDT) Gram Stain Result No Polymorphonuclear Leukocytes Seen [facility] Gram Stain Result No Organisms Seen; [facility] Culture Result No Growth After 3 Days [facility] Fluid SPECIMEN FROM KIDNEY / Unknown 10/27/2024 2:15 AM EDT 10/27/2024 4:24 AM EDT Narrative [facility] - 10/30/2024 9:26 AM EDT 1) perfusate us Semaj Mcnair III, MD MICROBIOLOGY - GENE RAL ORDERABLES Final Result Performing Organization Address [facility] Co de Phone Number [facility] [address] [facility]. [address] * Transfuse Platelets Transfusion Rate: Per [...] a Baseline TEG) (10/27/2024 1:51 AM EDT) [facility] Citrated Kaolin Reaction Time (TEGHEPARINASE) 10.6(H) 4.6 - 9.1 minutes 10/27/2024 2:44 AM EDT [facility] Citrated Rapid Teg Maximum Amplitude (TEGHEPARINASE) 42.3(L) 52.0 - 70.0 mm 10/27/2024 2:44 AM EDT [facility] Citrated Functional Fibrinogen Maximum Amplitude (TEGHEPARINASE) 15.0 15.0 - 32.0 mm 10/27/2024 2:44 AM EDT [facility] Citrated Kaolin W/Heparinase Reaction Time (TEGHEPARINASE) 10.5(H) 4.3 - 8.3 minutes 10/27/2024 2:44 AM EDT [facility] Citrated Kaolin K-Time (TEGHEPARINASE) 2.9(A) 0.8 - 2.1 minutes 10/27/2024 2:44 AM EDT [facility] Citrated Kaolin Angle (TEGHEPARINASE) 60.4(A) 63.0 - 78.0 degrees 10/27/2024 2:44 AM EDT [facility] Citrated Kaolin Maximum Amplitude (TEGHEPARINASE) 42.9(L) 52.0 - 69.0 mm 10/27/2024 2:44 AM EDT [facility] Citrated Functional Fibrinogen- Fibrinogen Level (TEGHEPARINASE) 273.7(L) 278.0 - 581.0 mg/dL 10/27/2024 2:44 AM EDT [facility] Whole Blood (Citrate) 10/27/2024 1:51 AM EDT 10/27/2024 2:03 AM EDT us John Pina MD LAB BLOOD ORDERABLES Final Resu lt Performing Organization Address [facility] Co de Phone Number [facility] [address] * (ABNORMAL) POC Glucose Monitoring Device (10/27/2024 1:50 AM EDT) POC Glucose Monitoring Device 121(H) 70 - 100 mg/dL 10/27/2024 1:51 AM EDT [facility] Blood 10/27/2024 1:50 AM EDT 10/27/2024 1:51 AM EDT us Semaj Mcnair III, MD POINT OF CARE TEST ORDERABLES Final Result Performing Organization Address [facility] de Phone Number [facility] [address] * Transfuse Cryoprecipitate Transfusion Rate: Per dept routine (10/27/2024 1:25 AM EDT) us John Pina MD NURSING TREATMENT ORDERABLES - BLOOD ADMIN Final Result Performing Organization Address [facility] Co de Phone Number EXTERNAL * Transfuse Cryoprecipitate Transfusion Rate: Per dept routine, 1 Units (10/27/2024 1:25 AM EDT) us John Pina MD NURSING TREATMENT ORDERABLES - BLOOD ADMIN Final Result Performing Organization Address [facility] Co de Phone Number EXTERNAL * (ABNORMAL) POC Glucose Monitoring Device (10/27/2024 1:21 AM EDT) POC Glucose Monitoring Device 123(H) 70 - 100 mg/dL 10/27/2024 1:22 AM EDT [facility] Blood 10/27/2024 1:21 AM EDT 10/27/2024 1:21 AM EDT us Semaj Mcnair III, MD POINT OF CARE TEST ORDERABLES Final Result Performing Organization Address [facility] Co de Phone Number [facility] [address] [facility]. [address] * Transfuse Fresh Frozen Plasma Transfusion Rate: Per dept routine (10/27/2024 1:03 AM EDT) us John Pina MD NURSING TREATMENT ORDERABLES - BLOOD ADMIN Final Result Performing Organization Address [facility] [place] de Phone Number EXTERNAL * Transfuse Fresh Frozen Plasma Transfusion Rate: Per dept routine, 1 Units (10/27/2024 1:03 AM EDT) us John Pina MD NURSING TREATMENT ORDERABLES - BLOOD ADMIN Final Result Performing Organization Address [facility] de Phone Number EXTERNAL * Calcium Free, Serum (10/27/2024 12:13 AM EDT) Free Calcium, Ser 5.20 4.40 - 5.40 mg/dL 10/27/2024 12:37 AM EDT [facility] Comment:Free calcium levels vary inversely with pH by approximately 5% for each 0.1 unit of pH change. Assay results have been normalized to pH = 7.40. Serum 10/27/2024 12:1 3 AM EDT 10/27/2024 12:29 AM EDT Narrative [facility] - 10/27/2024 12:37 AM EDT This test has been developed and its performance characteristics determined by [facility] which is certified under the [...] Final Resu lt Performing Organization Address [facility] Co de Phone Number [facility] [address] [facility] [place] [address], [facility] * (ABNORMAL) Blood Gas, Arterial, STAT (10/27/2024 12:13 AM EDT) O2 Sat, Arterial 100 10/27/2024 12:23 AM EDT [facility] FIO2 30 10/27/2024 12:23 AM EDT [facility] pH, Arterial 7.32(L) 7.35 - 7.45 10/27/2024 12:23 AM EDT [facility] pCO2, Arterial 37 35 - 45 mm Hg 10/27/2024 12:23 AM EDT [facility] pO2, Arterial 137(H) 80 - 100 mm Hg 10/27/2024 12:23 AM EDT [facility] HCO3, Arterial 20(L) 22 - 26 mmol/L 10/27/2024 12:23 AM EDT [facility] CO2 Content,Arteri al 20(L) 23 - 27 mmol/L 10/27/2024 12:23 AM EDT [facility] Base Excess, Arterial -6.4(L) -2.0 - 3.0 mmol/L 10/27/2024 12:23 AM EDT [facility] %HBO2, Arterial 96.2 95.0 - 98.0 % 10/27/2024 12:23 AM EDT [facility] Carboxyhemoglo bin, Arterial 1.9 % 10/27/2024 12:23 AM EDT [facility] Comment: CARBOXYHEMOGLOBIN (CO) REFERENCE RANGES: Non-Smokers: <2 % Smokers: <8 % TOXIC: >20 % Methemoglobin, Arterial 1.5 0.0 - 1.5 % 10/27/2024 12:23 AM EDT [facility] Reduced hemoglobin, Arterial 0.4 0.0 - 5.0 % 10/27/2024 12:23 AM EDT [facility] Blood, Arterial 10/27/2024 1 2:13 AM EDT 10/27/2024 12:18 AM EDT us John Pina MD LAB BLOOD ORDERABLES Final Resu lt [facility] [address] [place] [address], [facility] * (ABNORMAL) TEG-Bypass/ECMO/Liver HN (Factor function, Platelet/Fibrin Clot Strength w/Clot Breakdown, Heparinase In All Channels) (10/27/2024 12:13 AM EDT) Citrated Kaolin Reaction Time (TEGECMOLIVER) 9.1 4.6 - 9.1 minutes 10/27/2024 1:43 AM EDT [facility] Citrated Kaolin W/Heparinase Reaction Time (TEGECMOLIVER) 9.7(H) 4.3 - 8.3 minutes 10/27/2024 1:43 AM EDT [facility] Citrated Kaolin Maximum Amplitude (TEGECMOLIVER) <40.0(L) 52.0 - 69.0 mm 10/27/2024 1:43 AM EDT [facility] Citrated Functional Fibrinogen W/Heparinase Maximum Amplitude(TEGEC MOLIVER) 11.9(L) 15.0 - 34.0 mm 10/27/2024 1:43 AM EDT [facility] Citrated Rapid Teg W/Heparinase Maximum Amplitude (TEGECMOLIVER) 31.6(L) 53.0 - 69.0 mm 10/27/2024 1:43 AM EDT [facility] Citrated Kaolin w/Heparinase Percent Lysis (TEGECMOLIVER) 0.0 0.0 - 3.2 % 10/27/2024 1:43 AM EDT [facility] Whole Blood (Citrate) 10/27/2024 12:13 AM EDT 10/27/2024 12:18 AM EDT Kemar Sahni MD LAB BLOOD ORDERABLES Final Result Performing Organization Address City/State/[facility] Co de Phone Number [facility] [address] * (ABNORMAL) Lactic Acid (10/27/2024 12:13 AM EDT) Lactate 0.2(L) 0.5 - 2.2 mmol/L 10/27/2024 12:59 AM EDT [facility] Plasma 10/27/2024 12:1 3 AM EDT 10/27/2024 12:31 AM EDT Kemar Sahni MD LAB BLOOD ORDERABLES Final Result [facility] [address] [facility]. [address] * Magnesium (10/27/2024 12:13 AM EDT) Magnesium 1.8 1.5 - 2.5 mg/dL 10/27/2024 12:52 AM EDT [facility] Plasma 10/27/2024 12:1 3 AM EDT 10/27/2024 12:29 AM EDT Kemar Sahni MD LAB BLOOD ORDERABLES Final Result Performing Organization Address City/[facility] Co de Phone Number [facility] [address] [facility]. [address] * (ABNORMAL) Hepatic Function Panel (10/27/2024 12:13 AM EDT) Total Bilirubin 1.6(H) 0.0 - 1.5 mg/dL 10/27/2024 12:52 AM EDT [facility] Bilirubin, Direct 1.17(H) 0.00 - 0.40 mg/dL 10/27/2024 12:52 AM EDT [facility] AST 157(H) 13 - 39 U/L 10/27/2024 12:52 AM EDT [facility] ALT 261(H) 7 - 52 U/L 10/27/2024 12:52 AM EDT [facility] Alkaline Phosphatase 26(L) 36 - 125 U/L 10/27/2024 12:52 AM EDT [facility] Total Protein 3.8(L) 6.4 - 8.9 g/dL 10/27/2024 12:52 AM EDT [facility] Albumin 2.8(L) 3.5 - 5.7 g/dL 10/27/2024 12:52 AM EDT [facility] Bilirubin, Indirect 0.43 0.00 - 1.10 mg/dL 10/27/2024 12:52 AM EDT [facility] Plasma 10/27/2024 12:1 3 AM EDT 10/27/2024 12:29 AM EDT Kemar Sahni MD LAB BLOOD ORDERABLES Final Result Performing Organization Address [facility] Co de Phone Number [facility] [address] * (ABNORMAL) Protime-INR (10/27/2024 12:13 AM EDT) Protime 18.6(H) 12.1 - 15.1 seconds 10/27/2024 12:43 AM EDT [facility] INR 1.5(H) 0.9 - 1.1 10/27/2024 12:43 AM EDT [facility] Comment: RECOMMENDED THERAPEUTIC RANGES USING INR : Stable oral anticoagulant therapy: 2.0 - 3.0 Mechanical prosthetic heart valve: 2.5 - 3.5 Recurrent acute myocardial infarction: 2.5 - 3.5 Plasma 10/27/2024 12:1 3 AM EDT 10/27/2024 12:29 AM EDT Kemar Sahni MD LAB BLOOD ORDERABLES Final Result Performing Organization Address [facility] Co de Phone Number [facility] [address] [facility]. [address] * (ABNORMAL) CBC (10/27/2024 12:13 AM EDT) WBC 5.0 3.8 - 10.8 10E3/uL 10/27/2024 12:59 AM EDT [facility] RBC 2.70(L) 4.20 - 5.80 10E6/uL 10/27/2024 12:59 AM EDT [facility] Hemoglobin 8.5(L) 13.2 - 17.1 g/dL 10/27/2024 12:59 AM EDT [facility] Hematocrit 23.9(L) 38.5 - 50.0 % 10/27/2024 12:59 AM EDT [facility] MCV 88.5 80.0 - 100.0 fL 10/27/2024 12:59 AM EDT [facility] MCH 31.5 27.0 - 33.0 pg 10/27/2024 12:59 AM EDT [facility] MCHC 35.6 32.0 - 36.0 g/dL 10/27/2024 12:59 AM EDT [facility] RDW 20.6(H) 11.0 - 15.0 % 10/27/2024 12:59 AM EDT [facility] Platelets 35(L) 140 - 400 10E3/uL 10/27/2024 12:59 AM EDT [facility] Comment: CNV Specimen checked for clots. None detected. MPV 7.6 7.5 - 11.5 fL 10/27/2024 12:59 AM EDT [facility] Whole Blood 10/27/2024 12:1 3 AM EDT 10/27/2024 12:29 AM EDT Kemar Sahni MD LAB BLOOD ORDERABLES Final Result Performing Organization Address City/State/[facility] Co de Phone Number [facility] [address] * (ABNORMAL) Renal Function Panel w/EGFR (10/27/2024 12:13 AM EDT) Sodium 141 133 - 146 mmol/L 10/27/2024 12:52 AM EDT [facility] Potassium 3.2(L) 3.5 - 5.3 mmol/L 10/27/2024 12:52 AM EDT [facility] Chloride 109 98 - 110 mmol/L 10/27/2024 12:52 AM EDT [facility] CO2 21 21 - 33 mmol/L 10/27/2024 12:52 AM EDT [facility] Anion Gap 11 3 - 16 mmol/L 10/27/2024 12:52 AM EDT [facility] BUN 64(H) 7 - 25 mg/dL 10/27/2024 12:52 AM EDT [facility] Creatinine 2.58(H) 0.60 - 1.30 mg/dL 10/27/2024 12:52 AM EDT [facility] Glucose 126(H) 70 - 100 mg/dL 10/27/2024 12:52 AM EDT [facility] Calcium 8.9 8.6 - 10.3 mg/dL 10/27/2024 12:52 AM EDT [facility] Phosphorus 5.3(H) 2.1 - 4.7 mg/dL 10/27/2024 12:52 AM EDT [facility] Albumin 2.8(L) 3.5 - 5.7 g/dL 10/27/2024 12:52 AM EDT [facility] Osmolality, Calculated 312(H) 278 - 305 mOsm/kg 10/27/2024 12:52 AM EDT [facility] EGFR 31 10/27/2024 12:52 AM EDT [facility] Comment:As of 2021, the [...] Sahni MD LAB BLOOD ORDERABLES Final Result [facility] [address] [place] [address], [facility] * (ABNORMAL) POC Glucose Monitoring Device (10/27/2024 12:08 AM EDT) POC Glucose Monitoring Device 121(H) 70 - 100 mg/dL 10/27/2024 12:08 AM EDT [facility] Blood 10/27/2024 12:0 8 AM EDT 10/27/2024 12:08 AM EDT Semaj Mcnair III, MD POINT OF CARE TEST ORDERABLES Final Result [facility] [address] * (ABNORMAL) POC Glucose Monitoring Device (10/26/2024 11:15 PM EDT) [facility] POC Glucose Monitoring Device 120(H) 70 - 100 mg/dL 10/26/2024 11:15 PM EDT [facility] Blood 10/26/2024 11:1 5 PM EDT 10/26/2024 11:15 PM EDT Semaj Mcnair III, MD POINT OF CARE TEST ORDERABLES Final Result Performing Organization Address [facility] Co de Phone Number [facility] [address] * (ABNORMAL) TEG-Bypass/ECMO/Liver HN (Factor function, Platelet/Fibrin Clot Strength w/Clot Breakdown, Heparinase In All Channels) (10/26/2024 10:36 PM EDT) Citrated Kaolin Reaction Time (TEGECMOLIVER) 10.0(H) 4.6 - 9.1 minutes 10/26/2024 11:53 PM EDT [facility] Citrated Kaolin W/Heparinase Reaction Time (TEGECMOLIVER) 10.2(H) 4.3 - 8.3 minutes 10/26/2024 11:53 PM EDT [facility] Citrated Kaolin Maximum Amplitude (TEGECMOLIVER) <40.0(L) 52.0 - 69.0 mm 10/26/2024 11:53 PM EDT [facility] Citrated Functional Fibrinogen W/Heparinase Maximum Amplitude(TEGEC MOLIVER) 11.3(L) 15.0 - 34.0 mm 10/26/2024 11:53 PM EDT [facility] Citrated Rapid Teg W/Heparinase Maximum Amplitude (TEGECMOLIVER) 41.8(L) 53.0 - 69.0 mm 10/26/2024 11:53 PM EDT [facility] Citrated Kaolin w/Heparinase Percent Lysis (TEGECMOLIVER) 0.0 0.0 - 3.2 % 10/26/2024 11:53 PM EDT [facility] Whole Blood (Citrate) 10/26/2024 10:36 PM EDT 10/26/2024 10:43 PM EDT Kemar Sahni MD LAB BLOOD ORDERABLES Final Result [facility] [address] [facility]. [address] * (ABNORMAL) POC Glucose Monitoring Device (10/26/2024 10:14 PM EDT) POC Glucose Monitoring Device 124(H) 70 - 100 mg/dL 10/26/2024 11:11 PM EDT [facility] Blood 10/26/2024 10:1 4 PM EDT 10/26/2024 11:11 PM EDT Semaj Mcnair III, MD POINT OF CARE TEST ORDERABLES Final Result Performing Organization Address [facility] Co de Phone Number [facility] [address] [facility]. [address] * (ABNORMAL) POC Glucose Monitoring Device (10/26/2024 9:16 PM EDT) POC Glucose Monitoring Device 119(H) 70 - 100 mg/dL 10/26/2024 9:18 PM EDT [facility] Blood 10/26/2024 9:16 PM EDT 10/26/2024 9:18 PM EDT Semaj Mcnair III, MD POINT OF CARE TEST ORDERABLES Final Result Performing Organization Address City/[facility]/ZIP Co de Phone Number [facility] [address] [facility]. [address] * (ABNORMAL) POC Glucose Monitoring Device (10/26/2024 8:05 PM EDT) POC Glucose Monitoring Device 113(H) 70 - 100 mg/dL 10/26/2024 8:06 PM EDT [facility] Blood 10/26/2024 8:05 PM EDT 10/26/2024 8:06 PM EDT Semaj Mcnair III, MD POINT OF CARE TEST ORDERABLES Final Result Performing Organization Address [facility]/ZIP Co de Phone Number [facility] [address] [facility]. [address] * (ABNORMAL) POC Glucose Monitoring Device (10/26/2024 7:02 PM EDT) POC Glucose Monitoring Device 111(H) 70 - 100 mg/dL 10/26/2024 7:03 PM EDT [facility] Blood 10/26/2024 7:02 PM EDT 10/26/2024 7:03 PM EDT Semaj Mcnair III, MD POINT OF CARE TEST ORDERABLES Final Result Performing Organization Address [facility] Co de Phone Number [facility] [address] * Transfuse Cryoprecipitate Transfusion Rate: Per dept routine (10/26/2024 6:39 PM EDT) John Pina MD NURSING TREATMENT ORDERABLES - BLOOD ADMIN Final Result Performing Organization Address City/[facility]/ZIP Co de Phone Number EXTERNAL * Transfuse Cryoprecipitate Transfusion Rate: Per dept routine, 1 Units (10/26/2024 6:39 PM EDT) John Pina MD NURSING TREATMENT ORDERABLES - BLOOD ADMIN Final Result Performing Organization Address [facility] Co de Phone Number EXTERNAL * (ABNORMAL) POC Glucose Monitoring Device (10/26/2024 6:33 PM EDT) POC Glucose Monitoring Device 110(H) 70 - 100 mg/dL 10/26/2024 6:34 PM EDT [facility] Blood 10/26/2024 6:33 PM EDT 10/26/2024 6:34 PM EDT Semaj Mcnair III, MD POINT OF CARE TEST ORDERABLES Final Result Performing Organization Address [facility] Co de Phone Number [facility] [address] [facility]. [address] * Transfuse Cryoprecipitate Transfusion Rate: Per dept routine (10/26/2024 6:22 PM EDT) us John Pina MD NURSING TREATMENT ORDERABLES - BLOOD ADMIN Final Result Performing Organization Address [facility] Co de Phone Number EXTERNAL * Transfuse Cryoprecipitate Transfusion Rate: Per dept routine, 1 Units (10/26/2024 6:22 PM EDT) us John Pina MD NURSING TREATMENT ORDERABLES - BLOOD ADMIN Final Result Performing Organization Address [facility] Co de Phone Number EXTERNAL * (ABNORMAL) POC Glucose Monitoring Device (10/26/2024 6:17 PM EDT) POC Glucose Monitoring Device 104(H) 70 - 100 mg/dL 10/26/2024 6:18 PM EDT [facility] Blood 10/26/2024 6:17 PM EDT 10/26/2024 6:18 PM EDT us Semaj Mcnair III, MD POINT OF CARE TEST ORDERABLES Final Result Performing Organization Address [facility] Co de Phone Number [facility] [address] [facility]. [address] * (ABNORMAL) POC Glucose Monitoring Device (10/26/2024 4:58 PM EDT) POC Glucose Monitoring Device 115(H) 70 - 100 mg/dL 10/26/2024 4:59 PM EDT [facility] Blood 10/26/2024 4:58 PM EDT 10/26/2024 4:58 PM EDT Semaj Mcnair III, MD POINT OF CARE TEST ORDERABLES Final Result Performing Organization Address [facility] Co de Phone Number [facility] [address] [place] [address] * (ABNORMAL) Calcium Free, Serum (10/26/2024 4:42 PM EDT) Free Calcium, Ser 5.67(H) 4.40 - 5.40 mg/dL 10/26/2024 4:55 PM EDT [facility] Comment:Free calcium levels vary inversely with pH by approximately 5% for each 0.1 unit of pH change. Assay results have been normalized to pH = 7.40. Serum 10/26/2024 4:42 PM EDT 10/26/2024 4:47 PM EDT Narrative [facility] - 10/26/2024 4:55 PM EDT This test has been developed and its performance characteristics determined by [facility] which is certified under the [...] Final Resu lt Performing Organization Address [facility] Co de Phone Number [facility] [address] [place] [address] * Repeat Crossmatch (Recipient Sample) (10/26/2024 4:42 PM EDT) Repeat Cx - Recipient The request and specimen(s) for this test have been received and transported to the [facility] at [address] [place] [address] [facility] will report results directly to the client. 10/26/2024 4:49 PM EDT [facility] Whole Blood 10/26/2024 4:42 PM EDT 10/26/2024 4:49 PM EDT Narrative [facility] - 10/26/2024 4:49 PM EDT To be sent to [facility] for Donor [id number] cross match with Blair Gilbert Sveta Judge MD LAB BLOOD ORDERABLES Final Resu lt [facility] [address] * (ABNORMAL) Lactic Acid (10/26/2024 4:42 PM EDT) Lactate 0.3(L) 0.5 - 2.2 mmol/L 10/26/2024 5:19 PM EDT [facility] Plasma 10/26/2024 4:42 PM EDT 10/26/2024 4:47 PM EDT Kemar Sahni MD LAB BLOOD ORDERABLES Final Result Performing Organization Address City/[facility]/ZIP Co de Phone Number [facility] [address] * Magnesium (10/26/2024 4:42 PM EDT) Magnesium 2.0 1.5 - 2.5 mg/dL 10/26/2024 5:24 PM EDT [facility] Plasma 10/26/2024 4:42 PM EDT 10/26/2024 4:47 PM EDT Kemar Sahni MD LAB BLOOD ORDERABLES Final Result [facility] [address] * (ABNORMAL) Hepatic Function Panel (10/26/2024 4:42 PM EDT) Total Bilirubin 2.3(H) 0.0 - 1.5 mg/dL 10/26/2024 5:24 PM EDT [facility] Bilirubin, Direct 1.85(H) 0.00 - 0.40 mg/dL 10/26/2024 5:24 PM EDT [facility] AST 374(H) 13 - 39 U/L 10/26/2024 5:24 PM EDT [facility] ALT 458(H) 7 - 52 U/L 10/26/2024 5:24 PM EDT [facility] Alkaline Phosphatase 39 36 - 125 U/L 10/26/2024 5:24 PM EDT [facility] Total Protein 3.8(L) 6.4 - 8.9 g/dL 10/26/2024 5:24 PM EDT [facility] Albumin 3.0(L) 3.5 - 5.7 g/dL 10/26/2024 5:24 PM EDT [facility] Bilirubin, Indirect 0.45 0.00 - 1.10 mg/dL 10/26/2024 5:24 PM EDT [facility] Plasma 10/26/2024 4:42 PM EDT 10/26/2024 4:47 PM EDT Kemar Sahni MD LAB BLOOD ORDERABLES Final Result Performing Organization Address City/State/[facility] Co de Phone Number [facility] [address] * (ABNORMAL) Protime-INR (10/26/2024 4:42 PM EDT) Protime 20.3(H) 12.1 - 15.1 seconds 10/26/2024 5:12 PM EDT [facility] INR 1.7(H) 0.9 - 1.1 10/26/2024 5:12 PM EDT [facility] Comment: RECOMMENDED THERAPEUTIC RANGES USING INR : Stable oral anticoagulant therapy: 2.0 - 3.0 Mechanical prosthetic heart valve: 2.5 - 3.5 Recurrent acute myocardial infarction: 2.5 - 3.5 Plasma 10/26/2024 4:42 PM EDT 10/26/2024 4:47 PM EDT us Kemar Sahni MD LAB BLOOD ORDERABLES Final Result [facility] [address] * (ABNORMAL) CBC (10/26/2024 4:42 PM EDT) WBC 10.0 3.8 - 10.8 10E3/uL 10/26/2024 5:00 PM EDT [facility] RBC 3.44(L) 4.20 - 5.80 10E6/uL 10/26/2024 5:00 PM EDT [facility] Hemoglobin 10.5(L) 13.2 - 17.1 g/dL 10/26/2024 5:00 PM EDT [facility] Hematocrit 30.2(L) 38.5 - 50.0 % 10/26/2024 5:00 PM EDT [facility] MCV 87.7 80.0 - 100.0 fL 10/26/2024 5:00 PM EDT [facility] MCH 30.6 27.0 - 33.0 pg 10/26/2024 5:00 PM EDT [facility] MCHC 34.8 32.0 - 36.0 g/dL 10/26/2024 5:00 PM EDT [facility] RDW 20.1(H) 11.0 - 15.0 % 10/26/2024 5:00 PM EDT [facility] Platelets 48(L) 140 - 400 10E3/uL 10/26/2024 5:00 PM EDT [facility] Comment:Specimen checked for clots. None detected. MPV 7.9 7.5 - 11.5 fL 10/26/2024 5:00 PM EDT [facility] Whole Blood 10/26/2024 4:42 PM EDT 10/26/2024 4:47 PM EDT Kemar Sahni MD LAB BLOOD ORDERABLES Final Result [facility] [address] * (ABNORMAL) Renal Function Panel w/EGFR (10/26/2024 4:42 PM EDT) Sodium 142 133 - 146 mmol/L 10/26/2024 5:24 PM EDT [facility] Potassium 3.3(L) 3.5 - 5.3 mmol/L 10/26/2024 5:24 PM EDT [facility] Chloride 109 98 - 110 mmol/L 10/26/2024 5:24 PM EDT [facility] CO2 23 21 - 33 mmol/L 10/26/2024 5:24 PM EDT [facility] Anion Gap 10 3 - 16 mmol/L 10/26/2024 5:24 PM EDT [facility] BUN 63(H) 7 - 25 mg/dL 10/26/2024 5:24 PM EDT [facility] Creatinine 2.85(H) 0.60 - 1.30 mg/dL 10/26/2024 5:24 PM EDT [facility] Glucose 127(H) 70 - 100 mg/dL 10/26/2024 5:24 PM EDT [facility] Calcium 8.9 8.6 - 10.3 mg/dL 10/26/2024 5:24 PM EDT [facility] Phosphorus 4.4 2.1 - 4.7 mg/dL 10/26/2024 5:24 PM EDT [facility] Albumin 3.0(L) 3.5 - 5.7 g/dL 10/26/2024 5:24 PM EDT [facility] Osmolality, Calculated 314(H) 278 - 305 mOsm/kg 10/26/2024 5:24 PM EDT [facility] EGFR 28 10/26/2024 5:24 PM EDT [facility] Comment:As of 2021, the [...] City/[facility]/ZIP Co de Phone Number [facility] [address] [facility]. [address] * (ABNORMAL) POC Glucose Monitoring Device (10/26/2024 3:54 PM EDT) POC Glucose Monitoring Device 126(H) 70 - 100 mg/dL 10/26/2024 3:55 PM EDT [facility] Blood 10/26/2024 3:54 PM EDT 10/26/2024 3:55 PM EDT Semaj Mcnair III, MD POINT OF CARE TEST ORDERABLES Final Result Performing Organization Address [facility] de Phone Number [facility] [address] [place] [address]. [address] * (ABNORMAL) POC Glucose Monitoring Device (10/26/2024 3:06 PM EDT) POC Glucose Monitoring Device 144(H) 70 - 100 mg/dL 10/26/2024 3:14 PM EDT [facility] Blood 10/26/2024 3:06 PM EDT 10/26/2024 3:13 PM EDT Semaj Mcnair III, MD POINT OF CARE TEST ORDERABLES Final Result Performing Organization Address [facility] Co de Phone Number [facility] [address] [facility]. [address] * (ABNORMAL) TEG-Bypass/ECMO/Liver HN (Factor function, Platelet/Fibrin Clot Strength w/Clot Breakdown, Heparinase In All Channels) (10/26/2024 3:03 PM EDT) [facility] Signature Citrated Kaolin Reaction Time (TEGECMOLIVER) 8.2 4.6 - 9.1 minutes 10/26/2024 4:43 PM EDT [facility] Citrated Kaolin W/Heparinase Reaction Time (TEGECMOLIVER) 8.2 4.3 - 8.3 minutes 10/26/2024 4:43 PM EDT [facility] Citrated Kaolin Maximum Amplitude (TEGECMOLIVER) 41.7(L) 52.0 - 69.0 mm 10/26/2024 4:43 PM EDT [facility] Citrated Functional Fibrinogen W/Heparinase Maximum Amplitude(TEGEC MOLIVER) 11.4(L) 15.0 - 34.0 mm 10/26/2024 4:43 PM EDT [facility] Citrated Rapid Teg W/Heparinase Maximum Amplitude (TEGECMOLIVER) 38.6(L) 53.0 - 69.0 mm 10/26/2024 4:43 PM EDT [facility] Citrated Kaolin w/Heparinase Percent Lysis (TEGECMOLIVER) 0.0 0.0 - 3.2 % 10/26/2024 4:43 PM EDT [facility] Whole Blood (Citrate) 10/26/2024 3:03 PM EDT 10/26/2024 3:10 PM EDT us Jani Mooney MD LAB BLOOD ORDERABLES Final Resul t [facility] [id number] [id number] * ECG 12 lead (MUSE) (10/26/2024 2:19 PM EDT) 10/26/2024 2:19 PM EDT Narrative MUSE - 10/27/2024 10:09 AM EDT Ventricular Rate: 105 BPM Atrial Rate: 105 BPM P-R Interval: 128 ms QRS Duration: 94 ms QT: 474 ms QTc: 626 ms R [place]: -37 degrees T Langel[place]: 35 degrees Diagnosis Line: Critical Test Result: Long QTc ^ SINUS TACHYCARDIA ^ LEFT AXIS DEVIATION, LEFT ANTERIOR HEMIBLOCK ^ PROLONGED QT ^ ABNORMAL ECG ^ ^ Confirmed by MD HA, [facility] on 10/27/2024 10:09:25 AM us Quinten Best MD ECG ORDERABLES Final Result Performing Organization Address City/[facility]/ZIP Co de Phone Number MUSE * (ABNORMAL) POC Glucose Monitoring Device (10/26/2024 2:00 PM EDT) POC Glucose Monitoring Device 183(H) 70 - 100 mg/dL 10/26/2024 2:01 PM EDT [facility] Blood 10/26/2024 2:00 PM EDT 10/26/2024 2:01 PM EDT us Semaj Mcnair III, MD POINT OF CARE TEST ORDERABLES Final Result Performing Organization Address [facility] [place] de Phone Number [facility] [address] * (ABNORMAL) POC Glucose Monitoring Device (10/26/2024 1:05 PM EDT) POC Glucose Monitoring Device 212(H) 70 - 100 mg/dL 10/26/2024 1:06 PM EDT [facility] Blood 10/26/2024 1:05 PM EDT 10/26/2024 1:06 PM EDT us Semaj Mcnair III, MD POINT OF CARE TEST ORDERABLES Final Result Performing Organization Address [facility] Co de Phone Number [facility] [address] * Transfuse Cryoprecipitate Has consent been obtained? Yes; Transfusion Rate: Per dept routine (10/26/2024 12:25 PM EDT) us Shay Sifuentes MD NURSING TREATMENT ORDERABLES - BLOOD ADMIN Final Result Performing Organization Address City/[facility] Co de Phone Number EXTERNAL * Transfuse Cryoprecipitate Has consent been obtained? Yes; Transfusion Rate: Per dept routine, 1 Units (10/26/2024 12:25 PM EDT) Shay Sifuentes MD NURSING TREATMENT ORDERABLES - BLOOD ADMIN Final Result Performing Organization Address City/[facility] Co de Phone Number EXTERNAL * (ABNORMAL) POC Glucose Monitoring Device (10/26/2024 12:06 PM EDT) POC Glucose Monitoring Device 226(H) 70 - 100 mg/dL 10/26/2024 12:07 PM EDT [facility] Blood 10/26/2024 12:0 6 PM EDT 10/26/2024 12:07 PM EDT Semaj Mcnair III, MD POINT OF CARE TEST ORDERABLES Final Result Performing Organization Address [facility] [place] de Phone Number [facility] [address] * Transfuse Cryoprecipitate Transfusion Rate: Per dept routine (10/26/2024 12:01 PM EDT) John Pina MD NURSING TREATMENT ORDERABLES - BLOOD ADMIN Final Result Performing Organization Address [facility] [place] de Phone Number EXTERNAL * Transfuse Cryoprecipitate Transfusion Rate: Per dept routine, 1 Units (10/26/2024 12:01 PM EDT) John Pina MD NURSING TREATMENT ORDERABLES - BLOOD ADMIN Final Result Performing Organization Address City/[facility] [place] de Phone Number EXTERNAL * Lactic Acid (10/26/2024 10:48 AM EDT) Lactate 1.2 0.5 - 2.2 mmol/L 10/26/2024 11:27 AM EDT [facility] Plasma 10/26/2024 10:4 8 AM EDT 10/26/2024 10:53 AM EDT Kemar Sahni MD LAB BLOOD ORDERABLES Final Result Performing Organization Address City/[facility] Co de Phone Number [facility] [address] * Magnesium (10/26/2024 10:48 AM EDT) Magnesium 2.0 1.5 - 2.5 mg/dL 10/26/2024 11:26 AM EDT [facility] Plasma 10/26/2024 10:4 8 AM EDT 10/26/2024 10:53 AM EDT Kemar Sahni MD LAB BLOOD ORDERABLES Final Result [facility] [address] * (ABNORMAL) Hepatic Function Panel (10/26/2024 10:48 AM EDT) Total Bilirubin 5.9(H) 0.0 - 1.5 mg/dL 10/26/2024 11:26 AM EDT [facility] Bilirubin, Direct 4.74(H) 0.00 - 0.40 mg/dL 10/26/2024 11:26 AM EDT [facility] AST 872(H) 13 - 39 U/L 10/26/2024 11:26 AM EDT [facility] ALT 736(H) 7 - 52 U/L 10/26/2024 11:26 AM EDT [facility] Alkaline Phosphatase 56 36 - 125 U/L 10/26/2024 11:26 AM EDT [facility] Total Protein 3.5(L) 6.4 - 8.9 g/dL 10/26/2024 11:26 AM EDT [facility] Albumin 2.5(L) 3.5 - 5.7 g/dL 10/26/2024 11:26 AM EDT [facility] Bilirubin, Indirect 1.16(H) 0.00 - 1.10 mg/dL 10/26/2024 11:26 AM EDT [facility] Plasma 10/26/2024 10:4 8 AM EDT 10/26/2024 10:53 AM EDT us Kemar Sahni MD LAB BLOOD ORDERABLES Final Result Performing Organization Address [facility]/ZIP Co de Phone Number [facility] [address] [facility]. [address] * (ABNORMAL) Protime-INR (10/26/2024 10:48 AM EDT) Protime 23.0(H) 12.1 - 15.1 seconds 10/26/2024 11:26 AM EDT [facility] INR 2.0(H) 0.9 - 1.1 10/26/2024 11:26 AM EDT [facility] Comment: RECOMMENDED THERAPEUTIC RANGES USING INR : Stable oral anticoagulant therapy: 2.0 - 3.0 Mechanical prosthetic heart valve: 2.5 - 3.5 Recurrent acute myocardial infarction: 2.5 - 3.5 Plasma 10/26/2024 10:4 8 AM EDT 10/26/2024 10:53 AM EDT Kemar Sahni MD LAB BLOOD ORDERABLES Final Result Performing Organization Address [facility] Co de Phone Number [facility] [address] [facility]. [address] * (ABNORMAL) CBC (10/26/2024 10:48 AM EDT) WBC 17.3(H) 3.8 - 10.8 10E3/uL 10/26/2024 11:14 AM EDT [facility] RBC 4.22 4.20 - 5.80 10E6/uL 10/26/2024 11:14 AM EDT [facility] Hemoglobin 12.8(L) 13.2 - 17.1 g/dL 10/26/2024 11:14 AM EDT [facility] Hematocrit 37.2(L) 38.5 - 50.0 % 10/26/2024 11:14 AM EDT [facility] MCV 88.3 80.0 - 100.0 fL 10/26/2024 11:14 AM EDT [facility] MCH 30.4 27.0 - 33.0 pg 10/26/2024 11:14 AM EDT [facility] MCHC 34.4 32.0 - 36.0 g/dL 10/26/2024 11:14 AM EDT [facility] RDW 20.8(H) 11.0 - 15.0 % 10/26/2024 11:14 AM EDT [facility] Platelets 109(L) 140 - 400 10E3/uL 10/26/2024 11:14 AM EDT [facility] MPV 7.5 7.5 - 11.5 fL 10/26/2024 11:14 AM EDT [facility] Whole Blood 10/26/2024 10:4 8 AM EDT 10/26/2024 10:53 AM EDT Kemar Sahni MD LAB BLOOD ORDERABLES Final Result [facility] [address] [place] [address], [facility] * (ABNORMAL) Blood gas, arterial (10/26/2024 10:48 AM EDT) O2 Sat, Arterial 97 10/26/2024 10:54 AM EDT [facility] FIO2 35% 10/26/2024 10:54 AM EDT [facility] pH, Arterial 7.37 7.35 - 7.45 10/26/2024 10:54 AM EDT [facility] pCO2, Arterial 36 35 - 45 mm Hg 10/26/2024 10:54 AM EDT [facility] pO2, Arterial 91 80 - 100 mm Hg 10/26/2024 10:54 AM EDT [facility] HCO3, Arterial 22 22 - 26 mmol/L 10/26/2024 10:54 AM EDT [facility] CO2 Content,Arteri al 22(L) 23 - 27 mmol/L 10/26/2024 10:54 AM EDT [facility] Base Excess, Arterial -3.9(L) -2.0 - 3.0 mmol/L 10/26/2024 10:54 AM EDT [facility] %HBO2, Arterial 94.8(L) 95.0 - 98.0 % 10/26/2024 10:54 AM EDT [facility] Carboxyhemoglo bin, Arterial 1.9 % 10/26/2024 10:54 AM EDT [facility] Comment: CARBOXYHEMOGLOBIN (CO) REFERENCE RANGES: Non-Smokers: <2 % Smokers: <8 % TOXIC: >20 % Methemoglobin, Arterial 0.7 0.0 - 1.5 % 10/26/2024 10:54 AM EDT [facility] Reduced hemoglobin, Arterial 2.5 0.0 - 5.0 % 10/26/2024 10:54 AM EDT [facility] Blood, Arterial 10/26/2024 1 0:48 AM EDT 10/26/2024 10:52 AM EDT us Shay Sifuentes MD LAB BLOOD ORDERABLES Final Resu lt [facility] [address] * (ABNORMAL) Renal Function Panel w/EGFR (10/26/2024 10:48 AM EDT) Sodium 139 133 - 146 mmol/L 10/26/2024 11:26 AM EDT [facility] Potassium 2.9(LL) 3.5 - 5.3 mmol/L 10/26/2024 11:26 AM EDT [facility] Comment:K CRITICAL VALUE WAS PREVIOUSLY CALLED Chloride 107 98 - 110 mmol/L 10/26/2024 11:26 AM EDT [facility] CO2 22 21 - 33 mmol/L 10/26/2024 11:26 AM EDT [facility] Anion Gap 10 3 - 16 mmol/L 10/26/2024 11:26 AM EDT [facility] BUN 61(H) 7 - 25 mg/dL 10/26/2024 11:26 AM EDT [facility] Creatinine 2.78(H) 0.60 - 1.30 mg/dL 10/26/2024 11:26 AM EDT [facility] Glucose 253(H) 70 - 100 mg/dL 10/26/2024 11:26 AM EDT [facility] Calcium 8.8 8.6 - 10.3 mg/dL 10/26/2024 11:26 AM EDT [facility] Phosphorus 4.1 2.1 - 4.7 mg/dL 10/26/2024 11:26 AM EDT [facility] Albumin 2.5(L) 3.5 - 5.7 g/dL 10/26/2024 11:26 AM EDT [facility] Osmolality, Calculated 314(H) 278 - 305 mOsm/kg 10/26/2024 11:26 AM EDT [facility] EGFR 28 10/26/2024 11:26 AM EDT [facility] Comment:As of 2021, the [...] Sahni MD LAB BLOOD ORDERABLES Final Result [facility] [address] * (ABNORMAL) POC Glucose Monitoring Device (10/26/2024 10:47 AM EDT) POC Glucose Monitoring Device 234(H) 70 - 100 mg/dL 10/26/2024 10:48 AM EDT [facility] Blood 10/26/2024 10:4 7 AM EDT 10/26/2024 10:48 AM EDT Semaj Mcnair III, MD POINT OF CARE TEST ORDERABLES Final Result Performing Organization Address City/[facility]/ZIP Co de Phone Number [facility] [address] * CARISA Rhythm Strip - Scan (10/26/2024 10:45 AM EDT) us Scanning Uchhim SCAN DOCS - NO RESULTS Final Res ult * (ABNORMAL) POC Glucose Monitoring Device (10/26/2024 10:08 AM EDT) POC Glucose Monitoring Device 235(H) 70 - 100 mg/dL 10/26/2024 10:09 AM EDT [facility] Blood 10/26/2024 10:0 8 AM EDT 10/26/2024 10:09 AM EDT us Semaj Mcnair III, MD POINT OF CARE TEST ORDERABLES Final Result Performing Organization Address [facility] Co de Phone Number [facility] [address] [facility]. [address] * (ABNORMAL) POC Glucose Monitoring Device (10/26/2024 8:57 AM EDT) POC Glucose Monitoring Device 232(H) 70 - 100 mg/dL 10/26/2024 8:59 AM EDT [facility] Blood 10/26/2024 8:57 AM EDT 10/26/2024 8:58 AM EDT us Semaj Mcnair III, MD POINT OF CARE TEST ORDERABLES Final Result Performing Organization Address City/[facility]/ZIP Co de Phone Number [facility] [address] [facility]. [address] * ECG 12 lead (MUSE) (10/26/2024 8:16 AM EDT) 10/26/2024 8:16 AM EDT Narrative MUSE - 10/27/2024 10:09 AM EDT Ventricular Rate: 112 BPM QRS Duration: 96 ms QT: 452 ms QTc: 616 ms R Langeloth: -41 degrees T Langeloth: 40 degrees Diagnosis Line: Critical Test Result: Long QTc ^ SINUS TACHYCARDIA OCCASIONAL PREMATURE VENTRICULAR COMPLEXES ^ LEFT AXIS DEVIATION, LEFT ANTERIOR HEMIBLOCK ^ PROLONGED QT ^ ABNORMAL ECG ^ ^ Confirmed by MD HA, [facility] ([id number]) on 10/27/2024 10:09:18 AM us Shay [...] Glucose Monitoring Device (10/26/2024 7:59 AM EDT) [facility] POC Glucose Monitoring Device 229(H) 70 - 100 mg/dL 10/26/2024 8:01 AM EDT [facility] Blood 10/26/2024 7:59 AM EDT 10/26/2024 8:00 AM EDT Semaj Mcnair III, MD POINT OF CARE TEST ORDERABLES Final Result Performing Organization Address City/State/[facility] Co de Phone Number [facility] [address] * (ABNORMAL) TEG-Bypass/ECMO/Liver HN (Factor function, Platelet/Fibrin Clot Strength w/Clot Breakdown, Heparinase In All Channels) (10/26/2024 7:59 AM EDT) Citrated Kaolin Reaction Time (TEGECMOLIVER) 8.2 4.6 - 9.1 minutes 10/26/2024 10:36 AM EDT [facility] Citrated Kaolin W/Heparinase Reaction Time (TEGECMOLIVER) 8.1 4.3 - 8.3 minutes 10/26/2024 10:36 AM EDT [facility] Citrated Kaolin Maximum Amplitude (TEGECMOLIVER) 46.8(L) 52.0 - 69.0 mm 10/26/2024 10:36 AM EDT [facility] Citrated Functional Fibrinogen W/Heparinase Maximum Amplitude(TEGEC MOLIVER) 10.5(L) 15.0 - 34.0 mm 10/26/2024 10:36 AM EDT [facility] Citrated Rapid Teg W/Heparinase Maximum Amplitude (TEGECMOLIVER) 45.5(L) 53.0 - 69.0 mm 10/26/2024 10:36 AM EDT [facility] Citrated Kaolin w/Heparinase Percent Lysis (TEGECMOLIVER) 0.0 0.0 - 3.2 % 10/26/2024 10:36 AM EDT [facility] Whole Blood (Citrate) 10/26/2024 7:59 AM EDT 10/26/2024 8:05 AM EDT Shay Sifuentes MD LAB BLOOD ORDERABLES Final Resu lt Performing Organization Address City/[facility]/ZIP Co de Phone Number [facility] [address] * (ABNORMAL) POC Glucose Monitoring Device (10/26/2024 6:12 AM EDT) [facility] POC Glucose Monitoring Device 196(H) 70 - 100 mg/dL 10/26/2024 6:13 AM EDT [facility] Blood 10/26/2024 6:12 AM EDT 10/26/2024 6:13 AM EDT Semaj Mcnair III, MD POINT OF CARE TEST ORDERABLES Final Result Performing Organization Address [facility] Co de Phone Number [facility] [address] * Lactic Acid (10/26/2024 6:10 AM EDT) Pathologist [facility] Lactate 1.2 0.5 - 2.2 mmol/L 10/26/2024 6:39 AM EDT [facility] Plasma 10/26/2024 6:10 AM EDT 10/26/2024 6:19 AM EDT Sveta Judge MD LAB BLOOD ORDERABLES Final Resu lt Performing Organization Address [facility]/ZIP Co de Phone Number [facility] [address] * (ABNORMAL) Fibrinogen (10/26/2024 6:10 AM EDT) Fibrinogen 160(L) 218 - 406 mg/dL 10/26/2024 6:41 AM EDT [facility] Plasma 10/26/2024 6:10 AM EDT 10/26/2024 6:26 AM EDT Sveta Judge MD LAB BLOOD ORDERABLES Final Resu lt Performing Organization Address [facility] de Phone Number [facility] [address] [facility]. [address] * (ABNORMAL) Protime-INR (10/26/2024 6:10 AM EDT) Protime 25.0(H) 12.1 - 15.1 seconds 10/26/2024 6:41 AM EDT [facility] INR 2.2(H) 0.9 - 1.1 10/26/2024 6:41 AM EDT [facility] Comment: RECOMMENDED THERAPEUTIC RANGES USING INR : Stable oral anticoagulant therapy: 2.0 - 3.0 Mechanical prosthetic heart valve: 2.5 - 3.5 Recurrent acute myocardial infarction: 2.5 - 3.5 Plasma 10/26/2024 6:10 AM EDT 10/26/2024 6:26 AM EDT Sveta Judge MD LAB BLOOD ORDERABLES Final Resu lt Performing Organization Address [facility] de Phone Number [facility] [address] [facility]. [address] * (ABNORMAL) Blood gas, arterial (10/26/2024 6:10 AM EDT) O2 Sat, Arterial 98 10/26/2024 6:23 AM EDT [facility] FIO2 60 10/26/2024 6:23 AM EDT [facility] pH, Arterial 7.27(L) 7.35 - 7.45 10/26/2024 6:23 AM EDT [facility] pCO2, Arterial 47(H) 35 - 45 mm Hg 10/26/2024 6:23 AM EDT [facility] pO2, Arterial 127(H) 80 - 100 mm Hg 10/26/2024 6:23 AM EDT [facility] HCO3, Arterial 21(L) 22 - 26 mmol/L 10/26/2024 6:23 AM EDT [facility] CO2 Content,Arteri al 23 23 - 27 mmol/L 10/26/2024 6:23 AM EDT [facility] Base Excess, Arterial -5.4(L) -2.0 - 3.0 mmol/L 10/26/2024 6:23 AM EDT [facility] %HBO2, Arterial 94.6(L) 95.0 - 98.0 % 10/26/2024 6:23 AM EDT [facility] Carboxyhemoglo bin, Arterial 2.0 % 10/26/2024 6:23 AM EDT [facility] Comment: CARBOXYHEMOGLOBIN (CO) REFERENCE RANGES: Non-Smokers: <2 % Smokers: <8 % TOXIC: >20 % Methemoglobin, Arterial 1.6(H) 0.0 - 1.5 % 10/26/2024 6:23 AM EDT [facility] Reduced hemoglobin, Arterial 1.8 0.0 - 5.0 % 10/26/2024 6:23 AM EDT [facility] Blood, Arterial 10/26/2024 6 :10 AM EDT 10/26/2024 6:20 AM EDT Sveta Judge MD LAB BLOOD ORDERABLES Final Resu lt Performing Organization Address City/[facility]/ZIP Co de Phone Number [facility] [address] * Magnesium (10/26/2024 6:10 AM EDT) Magnesium 1.5 1.5 - 2.5 mg/dL 10/26/2024 7:09 AM EDT [facility] Plasma 10/26/2024 6:10 AM EDT 10/26/2024 6:23 AM EDT Sveta Judge MD LAB BLOOD ORDERABLES Final Resu lt [facility] [address] * (ABNORMAL) Hepatic Function Panel (10/26/2024 6:10 AM EDT) Total Bilirubin 6.2(H) 0.0 - 1.5 mg/dL 10/26/2024 7:11 AM EDT [facility] Bilirubin, Direct 5.26(H) 0.00 - 0.40 mg/dL 10/26/2024 7:11 AM EDT [facility] AST 1,071(H) 13 - 39 U/L 10/26/2024 7:11 AM EDT [facility] ALT 805(H) 7 - 52 U/L 10/26/2024 7:11 AM EDT [facility] Alkaline Phosphatase 55 36 - 125 U/L 10/26/2024 7:11 AM EDT [facility] Total Protein <3.0(L) 6.4 - 8.9 g/dL 10/26/2024 7:11 AM EDT [facility] Albumin 1.9(L) 3.5 - 5.7 g/dL 10/26/2024 7:11 AM EDT [facility] Bilirubin, Indirect 0.94 0.00 - 1.10 mg/dL 10/26/2024 7:11 AM EDT [facility] Plasma 10/26/2024 6:10 AM EDT 10/26/2024 6:23 AM EDT Sveta Judge MD LAB BLOOD ORDERABLES Final Resu lt [facility] [address] * (ABNORMAL) Renal Function Panel w/EGFR (10/26/2024 6:10 AM EDT) Sodium 141 133 - 146 mmol/L 10/26/2024 7:09 AM EDT [facility] Potassium 2.8(LL) 3.5 - 5.3 mmol/L 10/26/2024 7:09 AM EDT [facility] Comment:Critical value previ ously called. Chloride 106 98 - 110 mmol/L 10/26/2024 7:09 AM EDT [facility] CO2 25 21 - 33 mmol/L 10/26/2024 7:09 AM EDT [facility] Anion Gap 10 3 - 16 mmol/L 10/26/2024 7:09 AM EDT [facility] BUN 57(H) 7 - 25 mg/dL 10/26/2024 7:09 AM EDT [facility] Creatinine 2.70(H) 0.60 - 1.30 mg/dL 10/26/2024 7:09 AM EDT [facility] Glucose 210(H) 70 - 100 mg/dL 10/26/2024 7:09 AM EDT [facility] Calcium 8.7 8.6 - 10.3 mg/dL 10/26/2024 7:09 AM EDT [facility] Phosphorus 5.4(H) 2.1 - 4.7 mg/dL 10/26/2024 7:09 AM EDT [facility] Albumin 1.9(L) 3.5 - 5.7 g/dL 10/26/2024 7:11 AM EDT [facility] Osmolality, Calculated 314(H) 278 - 305 mOsm/kg 10/26/2024 7:09 AM EDT [facility] EGFR 29 10/26/2024 7:09 AM EDT [facility] Comment:As of 2021, the [...] MD LAB BLOOD ORDERABLES Final Resu lt [facility] [address] * (ABNORMAL) CBC (10/26/2024 6:10 AM EDT) WBC 14.8(H) 3.8 - 10.8 10E3/uL 10/26/2024 6:46 AM EDT [facility] RBC 4.04(L) 4.20 - 5.80 10E6/uL 10/26/2024 6:46 AM EDT [facility] Hemoglobin 12.7(L) 13.2 - 17.1 g/dL 10/26/2024 6:46 AM EDT [facility] Hematocrit 35.9(L) 38.5 - 50.0 % 10/26/2024 6:46 AM EDT [facility] MCV 89.0 80.0 - 100.0 fL 10/26/2024 6:46 AM EDT [facility] MCH 31.3 27.0 - 33.0 pg 10/26/2024 6:46 AM EDT [facility] MCHC 35.2 32.0 - 36.0 g/dL 10/26/2024 6:46 AM EDT [facility] RDW 19.7(H) 11.0 - 15.0 % 10/26/2024 6:46 AM EDT [facility] Platelets 107(L) 140 - 400 10E3/uL 10/26/2024 6:46 AM EDT [facility] MPV 7.4(L) 7.5 - 11.5 fL 10/26/2024 6:46 AM EDT [facility] Whole Blood 10/26/2024 6:10 AM EDT 10/26/2024 6:26 AM EDT Sveta Judge MD LAB BLOOD ORDERABLES Final Resu lt [facility] [address] * (ABNORMAL) POC INR (10/26/2024 5:16 AM EDT) Prothrombin Time INR, POC 2.4(H) 0.8 - 1.4 10/27/2024 6:51 AM EDT [facility] Comment: Test results may [...] ORDERABLES Final Result Performing Organization Address [facility]/ZIP Co de Phone Number [facility] [address] [place] [address] * POC Sample Type (10/26/2024 5:14 AM EDT) POC Sample Type Arterial 10/26/2024 5:31 AM EDT [facility] Blood, Arterial 10/26/2024 5 :14 AM EDT 10/26/2024 5:31 AM EDT us Semaj Mcnair III, MD POINT OF CARE TEST ORDERABLES Final Result Performing Organization Address [facility] Co de Phone Number [facility] [address] [place] [address]. [address] * POC Anion Gap (10/26/2024 5:14 AM EDT) POC Anion Gap, Arterial 12 3 - 16 mmol/L 10/26/2024 5:31 AM EDT [facility] Blood, Arterial 10/26/2024 5 :14 AM EDT 10/26/2024 5:31 AM EDT us Semaj Mcnair III, MD POINT OF CARE TEST ORDERABLES Final Result Performing Organization Address [facility]/ZIP Co de Phone Number [facility] [address] * POC Chloride (10/26/2024 5:14 AM EDT) POC Chloride 104 98 - 110 mmol/L 10/26/2024 5:31 AM EDT [facility] Blood, Arterial 10/26/2024 5 :14 AM EDT 10/26/2024 5:31 AM EDT us Semaj Mcnair III, MD POINT OF CARE TEST ORDERABLES Final Result Performing Organization Address [facility] Co de Phone Number [facility] [address] * (ABNORMAL) POC Hemoglobin (10/26/2024 5:14 AM EDT) POC Hemoglobin 9.5(L) 14.0 - 18.0 g/dL 10/26/2024 5:31 AM EDT [facility] Blood, Arterial 10/26/2024 5 :14 AM EDT 10/26/2024 5:31 AM EDT us Semaj Mcnair III, MD POINT OF CARE TEST ORDERABLES Final Result Performing Organization Address [facility] Co de Phone Number [facility] [address] [facility]. [address] * (ABNORMAL) POC hematocrit (10/26/2024 5:14 AM EDT) POC Hematocrit 28.0(L) 40 - 52 % 10/26/2024 5:31 AM EDT [facility] Blood, Arterial 10/26/2024 5 :14 AM EDT 10/26/2024 5:31 AM EDT us Semaj Mcnair III, MD POINT OF CARE TEST ORDERABLES Final Result Performing Organization Address City/[facility]/ZIP Co de Phone Number [facility] [address] * POC Lactate (10/26/2024 5:14 AM EDT) POC Lactate 1.76 0.50 - 2.20 mmol/L 10/26/2024 5:31 AM EDT [facility] Blood, Arterial 10/26/2024 5 :14 AM EDT 10/26/2024 5:31 AM EDT us Semaj Mcnair III, MD POINT OF CARE TEST ORDERABLES Final Result Performing Organization Address City/[facility]/ZIP Co de Phone Number [facility] [address] * (ABNORMAL) POC Glucose (10/26/2024 5:14 AM EDT) POC Glucose, Arterial 183(H) 70 - 100 mg/dL 10/26/2024 5:31 AM EDT [facility] Blood, Arterial 10/26/2024 5 :14 AM EDT 10/26/2024 5:31 AM EDT us Semaj Mcnair III, MD POINT OF CARE TEST ORDERABLES Final Result Performing Organization Address City/[facility]/ZIP Co de Phone Number [facility] [address] * (ABNORMAL) POC Ionized Calcium (10/26/2024 5:14 AM EDT) POC Ionized Calcium 5.50(H) 4.50 - 5.30 mg/dL 10/26/2024 5:31 AM EDT [facility] Blood, Arterial 10/26/2024 5 :14 AM EDT 10/26/2024 5:31 AM EDT us Semaj Mcnair III, MD POINT OF CARE TEST ORDERABLES Final Result [facility] [address] * (ABNORMAL) POC Potassium (10/26/2024 5:14 AM EDT) POC Potassium 2.8(LL) 3.5 - 5.3 mmol/L 10/26/2024 5:31 AM EDT [facility] Blood, Arterial 10/26/2024 5 :14 AM EDT 10/26/2024 5:31 AM EDT Semaj Mcnair III, MD POINT OF CARE TEST ORDERABLES Final Result [facility] [address] * POC Sodium (10/26/2024 5:14 AM EDT) POC Sodium 138 136 - 146 mmol/L 10/26/2024 5:31 AM EDT [facility] Blood, Arterial 10/26/2024 5 :14 AM EDT 10/26/2024 5:31 AM EDT Semaj Mcnair III, MD POINT OF CARE TEST ORDERABLES Final Result [facility] [address] * POC TCO2 (10/26/2024 5:14 AM EDT) POC TCO2, Arterial 23 23 - 27 mmol/L 10/26/2024 5:31 AM EDT [facility] Blood, Arterial 10/26/2024 5 :14 AM EDT 10/26/2024 5:31 AM EDT us Semaj Mcnair III, MD POINT OF CARE TEST ORDERABLES Final Result [facility] [address] * (ABNORMAL) POC O2 SAT (10/26/2024 5:14 AM EDT) POC O2 Saturation, Arterial 99(H) 95 - 98 % 10/26/2024 5:31 AM EDT [facility] Blood, Arterial 10/26/2024 5 :14 AM EDT 10/26/2024 5:31 AM EDT us Semaj Mcnair III, MD POINT OF CARE TEST ORDERABLES Final Result [facility] [address] * (ABNORMAL) POC Base Excess (10/26/2024 5:14 AM EDT) POC Base Excess, Arterial -5(L) -2 - 3 mmol/L 10/26/2024 5:31 AM EDT [facility] Blood, Arterial 10/26/2024 5 :14 AM EDT 10/26/2024 5:31 AM EDT us Semaj Mcnair III, MD POINT OF CARE TEST ORDERABLES Final Result Performing Organization Address [facility] Co de Phone Number [facility] [address] * POC HCO3 (10/26/2024 5:14 AM EDT) POC HCO3, Arterial 22 22 - 26 mmol/L 10/26/2024 5:31 AM EDT [facility] Blood, Arterial 10/26/2024 5 :14 AM EDT 10/26/2024 5:31 AM EDT us Semaj Mcnair III, MD POINT OF CARE TEST ORDERABLES Final Result Performing Organization Address City/[facility]/ZIP Co de Phone Number [facility] [address] * (ABNORMAL) POC PO2 (10/26/2024 5:14 AM EDT) POC pO2, Arterial 133(H) 80 - 100 mm Hg 10/26/2024 5:31 AM EDT [facility] Blood, Arterial 10/26/2024 5 :14 AM EDT 10/26/2024 5:31 AM EDT us Semaj Mcnair III, MD POINT OF CARE TEST ORDERABLES Final Result [facility] [address] * POC PCO2 (10/26/2024 5:14 AM EDT) POC pCO2, Arterial 45 35 - 45 mm Hg 10/26/2024 5:31 AM EDT [facility] Blood, Arterial 10/26/2024 5 :14 AM EDT 10/26/2024 5:31 AM EDT us Semaj Mcnair III, MD POINT OF CARE TEST ORDERABLES Final Result Performing Organization Address [facility] Co de Phone Number [facility] [address] [facility]. [address] * (ABNORMAL) POC pH (10/26/2024 5:14 AM EDT) POC pH, Arterial 7.29(L) 7.35 - 7.45 10/26/2024 5:31 AM EDT [facility] Blood, Arterial 10/26/2024 5 :14 AM EDT 10/26/2024 5:31 AM EDT us Semaj Mcnair III, MD POINT OF CARE TEST ORDERABLES Final Result Performing Organization Address City/[facility] Co de Phone Number [facility] [address] [facility]. [address] * Transfuse Cryoprecipitate (10/26/2024 4:37 AM EDT) Eber Quinones MD NURSING TREATMENT ORDERA BLES - BLOOD ADMIN Final Result * Transfuse Cryoprecipitate (10/26/2024 4:37 AM EDT) Eber Quinones MD NURSING TREATMENT ORDERA BLES - BLOOD ADMIN Final Result * (ABNORMAL) POC INR (10/26/2024 4:27 AM EDT) Prothrombin Time INR, POC 2.3(H) 0.8 - 1.4 10/27/2024 6:51 AM EDT [facility] Comment: Test results may [...] Final Result Performing Organization Address City/[facility] Co de Phone Number [facility] [address] [place] [address] * POC Sample Type (10/26/2024 4:24 AM EDT) Pathologist [facility] POC Sample Type Arterial 10/26/2024 5:09 AM EDT [facility] Blood, Arterial 10/26/2024 4 :24 AM EDT 10/26/2024 5:09 AM EDT Semaj Mcnair III, MD POINT OF CARE TEST ORDERABLES Final Result Performing Organization Address City/[facility] Co de Phone Number [facility] [address] [place] [address] * POC Anion Gap (10/26/2024 4:24 AM EDT) Pathologist [facility] POC Anion Gap, Arterial 14 3 - 16 mmol/L 10/26/2024 5:09 AM EDT [facility] Blood, Arterial 10/26/2024 4 :24 AM EDT 10/26/2024 5:09 AM EDT us Semaj Mcnair III, MD POINT OF CARE TEST ORDERABLES Final Result Performing Organization Address City/[facility]/ZIP Co de Phone Number [facility] [address] [place] [address]. [address] * POC Chloride (10/26/2024 4:24 AM EDT) POC Chloride 103 98 - 110 mmol/L 10/26/2024 5:09 AM EDT [facility] Blood, Arterial 10/26/2024 4 :24 AM EDT 10/26/2024 5:09 AM EDT Semaj Mcnair III, MD POINT OF CARE TEST ORDERABLES Final Result Performing Organization Address [facility] Co de Phone Number [facility] [address] [facility]. [address] * (ABNORMAL) POC Hemoglobin (10/26/2024 4:24 AM EDT) POC Hemoglobin 10.3(L) 14.0 - 18.0 g/dL 10/26/2024 5:09 AM EDT [facility] Blood, Arterial 10/26/2024 4 :24 AM EDT 10/26/2024 5:09 AM EDT Semaj Mcnair III, MD POINT OF CARE TEST ORDERABLES Final Result Performing Organization Address City/[facility] Co de Phone Number [facility] [address] [place], [place] [address]ue [facility]. [address] * (ABNORMAL) POC hematocrit (10/26/2024 4:24 AM EDT) POC Hematocrit 30.0(L) 40 - 52 % 10/26/2024 5:09 AM EDT [facility] Blood, Arterial 10/26/2024 4 :24 AM EDT 10/26/2024 5:09 AM EDT us Semaj Mcnair III, MD POINT OF CARE TEST ORDERABLES Final Result Performing Organization Address City/[facility] Co de Phone Number [facility] [address] [place] [address]. [address] * (ABNORMAL) POC Lactate (10/26/2024 4:24 AM EDT) POC Lactate 2.43(H) 0.50 - 2.20 mmol/L 10/26/2024 5:09 AM EDT [facility] Blood, Arterial 10/26/2024 4 :24 AM EDT 10/26/2024 5:09 AM EDT us Semaj Mcnair III, MD POINT OF CARE TEST ORDERABLES Final Result Performing Organization Address [facility] Co de Phone Number [facility] [address] [facility]. [address] * (ABNORMAL) POC Glucose (10/26/2024 4:24 AM EDT) POC Glucose, Arterial 185(H) 70 - 100 mg/dL 10/26/2024 5:09 AM EDT [facility] Blood, Arterial 10/26/2024 4 :24 AM EDT 10/26/2024 5:09 AM EDT us Semaj Mcnair III, MD POINT OF CARE TEST ORDERABLES Final Result Performing Organization Address City/[facility] Co de Phone Number [facility] [address] [place] [address]. [address] * POC Ionized Calcium (10/26/2024 4:24 AM EDT) POC Ionized Calcium 5.20 4.50 - 5.30 mg/dL 10/26/2024 5:09 AM EDT [facility] Blood, Arterial 10/26/2024 4 :24 AM EDT 10/26/2024 5:09 AM EDT us Semaj Mcnair III, MD POINT OF CARE TEST ORDERABLES Final Result Performing Organization Address City/[facility]/ZIP Co de Phone Number [facility] [address] [facility]. [address] * (ABNORMAL) POC Potassium (10/26/2024 4:24 AM EDT) POC Potassium 2.8(LL) 3.5 - 5.3 mmol/L 10/26/2024 5:09 AM EDT [facility] Blood, Arterial 10/26/2024 4 :24 AM EDT 10/26/2024 5:09 AM EDT us Semaj Mcnair III, MD POINT OF CARE TEST ORDERABLES Final Result Performing Organization Address City/[facility]/ZIP Co de Phone Number [facility] [address] * POC Sodium (10/26/2024 4:24 AM EDT) POC Sodium 139 136 - 146 mmol/L 10/26/2024 5:09 AM EDT [facility] Blood, Arterial 10/26/2024 4 :24 AM EDT 10/26/2024 5:09 AM EDT us Semaj Mcnair III, MD POINT OF CARE TEST ORDERABLES Final Result Performing Organization Address City/[facility]/ZIP Co de Phone Number [facility] [address] [facility]. [address] * POC TCO2 (10/26/2024 4:24 AM EDT) POC TCO2, Arterial 23 23 - 27 mmol/L 10/26/2024 5:09 AM EDT [facility] Blood, Arterial 10/26/2024 4 :24 AM EDT 10/26/2024 5:09 AM EDT us Semaj Mcnair III, MD POINT OF CARE TEST ORDERABLES Final Result [facility] [address] * POC O2 SAT (10/26/2024 4:24 AM EDT) POC O2 Saturation, Arterial 96 95 - 98 % 10/26/2024 5:09 AM EDT [facility] Blood, Arterial 10/26/2024 4 :24 AM EDT 10/26/2024 5:09 AM EDT us Semaj Mcnair III, MD POINT OF CARE TEST ORDERABLES Final Result Performing Organization Address City/[facility] Co de Phone Number [facility] [address] [facility]. [address] * (ABNORMAL) POC Base Excess (10/26/2024 4:24 AM EDT) POC Base Excess, Arterial -5(L) -2 - 3 mmol/L 10/26/2024 5:09 AM EDT [facility] Blood, Arterial 10/26/2024 4 :24 AM EDT 10/26/2024 5:09 AM EDT us Semaj Mcnair III, MD POINT OF CARE TEST ORDERABLES Final Result [facility] [address] * POC HCO3 (10/26/2024 4:24 AM EDT) POC HCO3, Arterial 22 22 - 26 mmol/L 10/26/2024 5:09 AM EDT [facility] Blood, Arterial 10/26/2024 4 :24 AM EDT 10/26/2024 5:09 AM EDT us Semaj Mcnair III, MD POINT OF CARE TEST ORDERABLES Final Result Performing Organization Address City/[facility] Co de Phone Number [facility] [address] [address] [facility] [address] * POC PO2 (10/26/2024 4:24 AM EDT) POC pO2, Arterial 93 80 - 100 mm Hg 10/26/2024 5:09 AM EDT [facility] Blood, Arterial 10/26/2024 4 :24 AM EDT 10/26/2024 5:09 AM EDT Semaj Mcnair III, MD POINT OF CARE TEST ORDERABLES Final Result Performing Organization Address [facility] Co de Phone Number [facility] [address] [place] [address]. [address] * POC PCO2 (10/26/2024 4:24 AM EDT) POC pCO2, Arterial 44 35 - 45 mm Hg 10/26/2024 5:09 AM EDT [facility] Blood, Arterial 10/26/2024 4 :24 AM EDT 10/26/2024 5:09 AM EDT us Semaj Mcnair III, MD POINT OF CARE TEST ORDERABLES Final Result Performing Organization Address City/[facility] Co de Phone Number [address] * (ABNORMAL) POC pH (10/26/2024 4:24 AM EDT) POC pH, Arterial 7.30(L) 7.35 - 7.45 10/26/2024 5:09 AM EDT [facility] Blood, Arterial 10/26/2024 4 :24 AM EDT 10/26/2024 5:09 AM EDT Semaj Mcnair III, MD POINT OF CARE TEST ORDERABLES Final Result Performing Organization Address City/[facility]/ZIP Co de Phone Number [facility] [address] * Transfuse Platelets (10/26/2024 4:14 AM EDT) Result [facility] Ben Blake MD NURSING TREATMENT ORDERABLES - BLOOD ADMIN Final Result * Transfuse Fresh Frozen Plasma (10/26/2024 3:47 AM EDT) Ben Blake MD NURSING TREATMENT ORDERABLES - BLOOD ADMIN Final Result * (ABNORMAL) POC INR (10/26/2024 3:34 AM EDT) Prothrombin Time INR, POC 2.8(H) 0.8 - 1.4 10/27/2024 6:51 AM EDT [facility] Comment: Test results may [...] ORDERABLES Final Result Performing Organization Address [facility] Co de Phone Number [facility] [address] * POC Sample Type (10/26/2024 3:31 AM EDT) POC Sample Type Arterial 10/26/2024 4:11 AM EDT [facility] Blood, Arterial 10/26/2024 3 :31 AM EDT 10/26/2024 4:11 AM EDT Semaj Mcnair III, MD POINT OF CARE TEST ORDERABLES Final Result [facility] [address] * POC Anion Gap (10/26/2024 3:31 AM EDT) POC Anion Gap, Arterial 15 3 - 16 mmol/L 10/26/2024 4:11 AM EDT [facility] Blood, Arterial 10/26/2024 3 :31 AM EDT 10/26/2024 4:11 AM EDT us Semaj Mcnair III, MD POINT OF CARE TEST ORDERABLES Final Result [facility] [address] * POC Chloride (10/26/2024 3:31 AM EDT) Pathologist [facility] POC Chloride 105 98 - 110 mmol/L 10/26/2024 4:11 AM EDT [facility] Blood, Arterial 10/26/2024 3 :31 AM EDT 10/26/2024 4:11 AM EDT us Semaj Mcnair III, MD POINT OF CARE TEST ORDERABLES Final Result [facility] [address] * (ABNORMAL) POC Hemoglobin (10/26/2024 3:31 AM EDT) Pathologist [facility] POC Hemoglobin 9.7(L) 14.0 - 18.0 g/dL 10/26/2024 4:11 AM EDT [facility] Blood, Arterial 10/26/2024 3 :31 AM EDT 10/26/2024 4:11 AM EDT us Semaj Mcnair III, MD POINT OF CARE TEST ORDERABLES Final Result [facility] [address] [facility]. [address] * (ABNORMAL) POC hematocrit (10/26/2024 3:31 AM EDT) POC Hematocrit 29.0(L) 40 - 52 % 10/26/2024 4:11 AM EDT [facility] Blood, Arterial 10/26/2024 3 :31 AM EDT 10/26/2024 4:11 AM EDT us Semaj Mcnair III, MD POINT OF CARE TEST ORDERABLES Final Result [facility] [address] [facility]. [address] * (ABNORMAL) POC Lactate (10/26/2024 3:31 AM EDT) Pathologist [facility] POC Lactate 3.54(H) 0.50 - 2.20 mmol/L 10/26/2024 4:11 AM EDT [facility] Blood, Arterial 10/26/2024 3 :31 AM EDT 10/26/2024 4:11 AM EDT us Semaj Mcnair III, MD POINT OF CARE TEST ORDERABLES Final Result Performing Organization Address [facility] Co de Phone Number [facility] [address] [facility]. [address] * (ABNORMAL) POC Glucose (10/26/2024 3:31 AM EDT) POC Glucose, Arterial 153(H) 70 - 100 mg/dL 10/26/2024 4:11 AM EDT [facility] Blood, Arterial 10/26/2024 3 :31 AM EDT 10/26/2024 4:11 AM EDT us Semaj Mcnair III, MD POINT OF CARE TEST ORDERABLES Final Result [facility] [address] * POC Ionized Calcium (10/26/2024 3:31 AM EDT) POC Ionized Calcium 5.10 4.50 - 5.30 mg/dL 10/26/2024 4:11 AM EDT [facility] Blood, Arterial 10/26/2024 3 :31 AM EDT 10/26/2024 4:11 AM EDT us Semaj Mcnair III, MD POINT OF CARE TEST ORDERABLES Final Result [facility] [address] [facility]. [address] * (ABNORMAL) POC Potassium (10/26/2024 3:31 AM EDT) Pathologist [facility] POC Potassium 2.6(LL) 3.5 - 5.3 mmol/L 10/26/2024 4:11 AM EDT [facility] Blood, Arterial 10/26/2024 3 :31 AM EDT 10/26/2024 4:11 AM EDT us Semaj Mcnair III, MD POINT OF CARE TEST ORDERABLES Final Result Performing Organization Address [facility] Co de Phone Number [facility] [address] [facility]. [address] * POC Sodium (10/26/2024 3:31 AM EDT) Pathologist [facility] POC Sodium 138 136 - 146 mmol/L 10/26/2024 4:11 AM EDT [facility] Blood, Arterial 10/26/2024 3 :31 AM EDT 10/26/2024 4:11 AM EDT us Semaj Mcnair III, MD POINT OF CARE TEST ORDERABLES Final Result Performing Organization Address City/[facility]/ZIP Co de Phone Number [facility] [address] [facility]. [address] * (ABNORMAL) POC TCO2 (10/26/2024 3:31 AM EDT) POC TCO2, Arterial 19(L) 23 - 27 mmol/L 10/26/2024 4:11 AM EDT [facility] Blood, Arterial 10/26/2024 3 :31 AM EDT 10/26/2024 4:11 AM EDT us Semaj Mcnair III, MD POINT OF CARE TEST ORDERABLES Final Result [facility] [address] [facility]. [address] * POC O2 SAT (10/26/2024 3:31 AM EDT) Pathologist [facility] POC O2 Saturation, Arterial 97 95 - 98 % 10/26/2024 4:11 AM EDT [facility] Blood, Arterial 10/26/2024 3 :31 AM EDT 10/26/2024 4:11 AM EDT us Semaj Mcnair III, MD POINT OF CARE TEST ORDERABLES Final Result Performing Organization Address City/[facility] Co de Phone Number [facility] [address] [facility]. [address] * (ABNORMAL) POC Base Excess (10/26/2024 3:31 AM EDT) [facility] POC Base Excess, Arterial -9(L) -2 - 3 mmol/L 10/26/2024 4:11 AM EDT [facility] Blood, Arterial 10/26/2024 3 :31 AM EDT 10/26/2024 4:11 AM EDT us Semaj Mcnair III, MD POINT OF CARE TEST ORDERABLES Final Result Performing Organization Address City/State/[facility] Co de Phone Number [facility] [address] [facility]. [address] * (ABNORMAL) POC HCO3 (10/26/2024 3:31 AM EDT) POC HCO3, Arterial 18(L) 22 - 26 mmol/L 10/26/2024 4:11 AM EDT [facility] Blood, Arterial 10/26/2024 3 :31 AM EDT 10/26/2024 4:11 AM EDT us Semaj Mcnair III, MD POINT OF CARE TEST ORDERABLES Final Result Performing Organization Address City/[facility]/ZIP Co de Phone Number [facility] [address] [place] [address]. [address] * (ABNORMAL) POC PO2 (10/26/2024 3:31 AM EDT) POC pO2, Arterial 104(H) 80 - 100 mm Hg 10/26/2024 4:11 AM EDT [facility] Blood, Arterial 10/26/2024 3 :31 AM EDT 10/26/2024 4:11 AM EDT us Semaj Mcnair III, MD POINT OF CARE TEST ORDERABLES Final Result Performing Organization Address City/[facility] Co de Phone Number [facility] [address] [place] [address]. [address] * POC PCO2 (10/26/2024 3:31 AM EDT) POC pCO2, Arterial 42 35 - 45 mm Hg 10/26/2024 4:11 AM EDT [facility] Blood, Arterial 10/26/2024 3 :31 AM EDT 10/26/2024 4:11 AM EDT us Semaj Mcnair III, MD POINT OF CARE TEST ORDERABLES Final Result Performing Organization Address City/[facility] Co de Phone Number [facility] [address] [place] [address]. [address] * (ABNORMAL) POC pH (10/26/2024 3:31 AM EDT) POC pH, Arterial 7.24(L) 7.35 - 7.45 10/26/2024 4:11 AM EDT [facility] Blood, Arterial 10/26/2024 3 :31 AM EDT 10/26/2024 4:11 AM EDT Semaj Mcnair III, MD POINT OF CARE TEST ORDERABLES Final Result Performing Organization Address City/[facility]/ZIP Co de Phone Number [facility] [address] [facility]. [address] * (ABNORMAL) TEG-Global With Lysis (Baseline TEG with LY30, Will NOT Show Heparin Effect) (53:31 AM EDT) Citrated Kaolin Reaction Time (TEGLYSIS) 6.8 4.6 - 9.1 minutes 10/26/2024 5:02 AM EDT [facility] Citrated Rapid Teg Maximum Amplitude (TEGLYSIS) <40.0(L) 52.0 - 70.0 mm 10/26/2024 5:02 AM EDT [facility] Citrated Functional Fibrinogen Maximum Amplitude (TEGLYSIS) <4.0(L) 15.0 - 32.0 mm 10/26/2024 5:02 AM EDT [facility] Citrated Kaolin Percent Lysis (TEGLYSIS) 1.4 0.0 - 2.6 % 10/26/2024 5:02 AM EDT [facility] Whole Blood (Citrate) 10/26/2024 3:31 AM EDT 10/26/2024 3:40 AM EDT us Eber Quinones MD LAB BLOOD ORDERABLES Fin al Result [facility] [address] [facility]. [address] * (ABNORMAL) CBC (10/26/2024 3:31 AM EDT) WBC 9.5 3.8 - 10.8 10E3/uL 10/26/2024 3:48 AM EDT [facility] RBC 3.68(L) 4.20 - 5.80 10E6/uL 10/26/2024 3:48 AM EDT [facility] Hemoglobin 11.5(L) 13.2 - 17.1 g/dL 10/26/2024 3:48 AM EDT [facility] Hematocrit 33.0(L) 38.5 - 50.0 % 10/26/2024 3:48 AM EDT [facility] MCV 89.6 80.0 - 100.0 fL 10/26/2024 3:48 AM EDT [facility] MCH 31.1 27.0 - 33.0 pg 10/26/2024 3:48 AM EDT [facility] MCHC 34.8 32.0 - 36.0 g/dL 10/26/2024 3:48 AM EDT [facility] RDW 19.3(H) 11.0 - 15.0 % 10/26/2024 3:48 AM EDT [facility] Platelets 67(L) 140 - 400 10E3/uL 10/26/2024 3:48 AM EDT [facility] MPV 7.9 7.5 - 11.5 fL 10/26/2024 3:48 AM EDT [facility] Whole Blood 10/26/2024 3:31 AM EDT 10/26/2024 3:40 AM EDT Eber Quinones MD LAB BLOOD ORDERABLES Fin al Result Performing Organization Address City/State/[facility] Co de Phone Number [facility] [address] * (ABNORMAL) Protime-INR (10/26/2024 3:31 AM EDT) Protime 27.0(H) 12.1 - 15.1 seconds 10/26/2024 3:51 AM EDT [facility] INR 2.4(H) 0.9 - 1.1 10/26/2024 3:51 AM EDT [facility] Comment: RECOMMENDED THERAPEUTIC RANGES USING INR : Stable oral anticoagulant therapy: 2.0 - 3.0 Mechanical prosthetic heart valve: 2.5 - 3.5 Recurrent acute myocardial infarction: 2.5 - 3.5 Plasma 10/26/2024 3:31 AM EDT 10/26/2024 3:40 AM EDT Eber Quinones MD LAB BLOOD ORDERABLES Fin al Result [facility] [address] [facility]. [address] * (ABNORMAL) Fibrinogen (10/26/2024 3:31 AM EDT) Fibrinogen 104(L) 218 - 406 mg/dL 10/26/2024 3:56 AM EDT [facility] Plasma 10/26/2024 3:31 AM EDT 10/26/2024 3:40 AM EDT Result [facility] Eber Quinones MD LAB BLOOD ORDERABLES Fin al Result Performing Organization Address [facility] Co de Phone Number [facility] [address] [facility] * Transfuse Fresh Frozen Plasma (10/26/2024 3:16 AM EDT) Result [facility] Ben Blake MD NURSING TREATMENT ORDERABLES - BLOOD ADMIN Final Result * Transfuse Fresh Frozen Plasma (10/26/2024 3:15 AM EDT) Result [facility] Ben Blake MD NURSING TREATMENT ORDERABLES - BLOOD ADMIN Final Result * Transfuse RBC (10/26/2024 3:14 AM EDT) Result [facility] Ben Blake MD NURSING TREATMENT [...] Frozen Plasma (10/26/2024 2:24 AM EDT) Result [facility] Ben Blake MD NURSING TREATMENT ORDERABLES - BLOOD ADMIN Final Result * Transfuse Fresh Frozen Plasma (10/26/2024 2:03 AM EDT) us Ben Blake MD NURSING TREATMENT ORDERABLES - BLOOD ADMIN Final Result * Transfuse RBC (10/26/2024 2:01 AM EDT) Result [facility] Ben Blake MD NURSING TREATMENT ORDERABLES - BLOOD ADMIN Final Result * Transfuse RBC (10/26/2024 1:45 AM EDT) Result [facility] Ben Blake MD NURSING TREATMENT ORDERABLES - BLOOD ADMIN Final Result * Transfuse RBC (10/26/2024 1:45 AM EDT) Result [facility] us Ben Blake MD NURSING TREATMENT ORDERABLES - BLOOD ADMIN Final Result * (ABNORMAL) POC INR (10/26/2024 1:43 AM EDT) [facility] Prothrombin Time INR, POC 1.9(H) 0.8 [...] EDT 10/27/2024 6:51 AM EDT Result [facility] Semaj Mcnair III, MD POINT OF CARE TEST ORDERABLES Final Result [facility] [address] [place] [address], [facility] * Transfuse Fresh Frozen Plasma (10/26/2024 1:41 AM EDT) Result [facility] Ben Blake MD NURSING TREATMENT ORDERABLES - BLOOD ADMIN Final Result * Transfuse RBC (10/26/2024 1:40 AM EDT) Ben Blake MD NURSING TREATMENT ORDERABLES - BLOOD ADMIN Final Result * POC Sample Type (10/26/2024 1:40 AM EDT) POC Sample Type Arterial 10/26/2024 2:32 AM EDT [facility] Blood, Arterial 10/26/2024 1 :40 AM EDT 10/26/2024 2:32 AM EDT Semaj Mcnair III, MD POINT OF CARE TEST ORDERABLES Final Result [facility] [address] * POC Anion Gap (10/26/2024 1:40 AM EDT) POC Anion Gap, Arterial 13 3 - 16 mmol/L 10/26/2024 2:32 AM EDT [facility] Blood, Arterial 10/26/2024 1 :40 AM EDT 10/26/2024 2:32 AM EDT Semaj Mcnair III, MD POINT OF CARE TEST ORDERABLES Final Result Performing Organization Address City/[facility] Co de Phone Number [facility] [address] * POC Chloride (10/26/2024 1:40 AM EDT) POC Chloride 104 98 - 110 mmol/L 10/26/2024 2:32 AM EDT [facility] Blood, Arterial 10/26/2024 1 :40 AM EDT 10/26/2024 2:32 AM EDT Semaj Mcnair III, MD POINT OF CARE TEST ORDERABLES Final Result [facility] [address] * (ABNORMAL) POC Hemoglobin (10/26/2024 1:40 AM EDT) POC Hemoglobin 7.4(L) 14.0 - 18.0 g/dL 10/26/2024 2:32 AM EDT [facility] Blood, Arterial 10/26/2024 1 :40 AM EDT 10/26/2024 2:32 AM EDT us Semaj Mcnair III, MD POINT OF CARE TEST ORDERABLES Final Result Performing Organization Address City/[facility]/ZIP Co de Phone Number [facility] [address] [facility]. [address] * (ABNORMAL) POC hematocrit (10/26/2024 1:40 AM EDT) [facility] POC Hematocrit 22.0(L) 40 - 52 % 10/26/2024 2:32 AM EDT [facility] Blood, Arterial 10/26/2024 1 :40 AM EDT 10/26/2024 2:32 AM EDT us Semaj Mcnair III, MD POINT OF CARE TEST ORDERABLES Final Result Performing Organization Address [facility] Co de Phone Number [facility] [address] [facility]. [address] * (ABNORMAL) POC Lactate (10/26/2024 1:40 AM EDT) Pathologist [facility] POC Lactate 2.30(H) 0.50 - 2.20 mmol/L 10/26/2024 2:32 AM EDT [facility] Blood, Arterial 10/26/2024 1 :40 AM EDT 10/26/2024 2:32 AM EDT us Semaj Mcnair III, MD POINT OF CARE TEST ORDERABLES Final Result Performing Organization Address City/[facility] Co de Phone Number [facility] [address] [facility]. [address] * (ABNORMAL) POC Glucose (10/26/2024 1:40 AM EDT) POC Glucose, Arterial 116(H) 70 - 100 mg/dL 10/26/2024 2:32 AM EDT [facility] Blood, Arterial 10/26/2024 1 :40 AM EDT 10/26/2024 2:32 AM EDT us Semaj Mcnair III, MD POINT OF CARE TEST ORDERABLES Final Result Performing Organization Address City/[facility] Co de Phone Number [facility] [address] [facility]. [address] * (ABNORMAL) POC Ionized Calcium (10/26/2024 1:40 AM EDT) [facility] POC Ionized Calcium 4.10(L) 4.50 - 5.30 mg/dL 10/26/2024 2:32 AM EDT [facility] Blood, Arterial 10/26/2024 1 :40 AM EDT 10/26/2024 2:32 AM EDT us Semaj Mcnair III, MD POINT OF CARE TEST ORDERABLES Final Result Performing Organization Address [facility] de Phone Number [facility] [address] [place] [address]. [address] * (ABNORMAL) POC Potassium (10/26/2024 1:40 AM EDT) [facility] POC Potassium 2.6(LL) 3.5 - 5.3 mmol/L 10/26/2024 2:32 AM EDT [facility] Blood, Arterial 10/26/2024 1 :40 AM EDT 10/26/2024 2:32 AM EDT us Semaj Mcnair III, MD POINT OF CARE TEST ORDERABLES Final Result Performing Organization Address City/[facility] Co de Phone Number [facility] [address] [facility]. [address] * (ABNORMAL) POC Sodium (10/26/2024 1:40 AM EDT) POC Sodium 135(L) 136 - 146 mmol/L 10/26/2024 2:32 AM EDT [facility] Blood, Arterial 10/26/2024 1 :40 AM EDT 10/26/2024 2:32 AM EDT us Semaj Mcnair III, MD POINT OF CARE TEST ORDERABLES Final Result Performing Organization Address City/[facility] Co de Phone Number [facility] [address] [facility]. [address] * (ABNORMAL) POC TCO2 (10/26/2024 1:40 AM EDT) POC TCO2, Arterial 19(L) 23 - 27 mmol/L 10/26/2024 2:32 AM EDT [facility] Blood, Arterial 10/26/2024 1 :40 AM EDT 10/26/2024 2:32 AM EDT us Semaj Mcnair III, MD POINT OF CARE TEST ORDERABLES Final Result Performing Organization Address [facility] Co de Phone Number [facility] [address] [facility]. [address] * (ABNORMAL) POC O2 SAT (10/26/2024 1:40 AM EDT) POC O2 Saturation, Arterial 99(H) 95 - 98 % 10/26/2024 2:32 AM EDT [facility] Blood, Arterial 10/26/2024 1 :40 AM EDT 10/26/2024 2:32 AM EDT us Semaj Mcnair III, MD POINT OF CARE TEST ORDERABLES Final Result Performing Organization Address City/[facility] Co de Phone Number [facility] [address] [facility]. [address] * (ABNORMAL) POC Base Excess (10/26/2024 1:40 AM EDT) [facility] POC Base Excess, Arterial -7(L) -2 - 3 mmol/L 10/26/2024 2:32 AM EDT [facility] Blood, Arterial 10/26/2024 1 :40 AM EDT 10/26/2024 2:32 AM EDT us Semaj Mcnair III, MD POINT OF CARE TEST ORDERABLES Final Result Performing Organization Address City/[facility] Co de Phone Number [facility] [address] [place] [address]. [address] * (ABNORMAL) POC HCO3 (10/26/2024 1:40 AM EDT) [facility] POC HCO3, Arterial 18(L) 22 - 26 mmol/L 10/26/2024 2:32 AM EDT [facility] Blood, Arterial 10/26/2024 1 :40 AM EDT 10/26/2024 2:32 AM EDT us Semaj Mcnair III, MD POINT OF CARE TEST ORDERABLES Final Result Performing Organization Address [facility] Co de Phone Number [facility] [address] [place] [address]. [address] * (ABNORMAL) POC PO2 (10/26/2024 1:40 AM EDT) [facility] POC pO2, Arterial 145(H) 80 - 100 mm Hg 10/26/2024 2:32 AM EDT [facility] Blood, Arterial 10/26/2024 1 :40 AM EDT 10/26/2024 2:32 AM EDT us Semaj Mcnair III, MD POINT OF CARE TEST ORDERABLES Final Result Performing Organization Address [facility] Co de Phone Number [facility] [address] [place] [address]. [address] * (ABNORMAL) POC PCO2 (10/26/2024 1:40 AM EDT) POC pCO2, Arterial 33(L) 35 - 45 mm Hg 10/26/2024 2:32 AM EDT [facility] Blood, Arterial 10/26/2024 1 :40 AM EDT 10/26/2024 2:32 AM EDT us Semaj Mcnair III, MD POINT OF CARE TEST ORDERABLES Final Result Performing Organization Address City/[facility] Co de Phone Number [facility] [address] [place] [address]. [address] * POC pH (10/26/2024 1:40 AM EDT) Pathologist [facility] POC pH, Arterial 7.35 7.35 - 7.45 10/26/2024 2:32 AM EDT [facility] Blood, Arterial 10/26/2024 1 :40 AM EDT 10/26/2024 2:32 AM EDT Semaj Mcnair III, MD POINT OF CARE TEST ORDERABLES Final Result Performing Organization Address [facility] Co de Phone Number [facility] [address] [facility] * Transfuse Fresh Frozen Plasma (10/26/2024 1:20 AM EDT) Result [facility] us Ben Blake MD NURSING TREATMENT ORDERABLES - BLOOD ADMIN Final Result * Transfuse RBC (10/26/2024 12:56 AM EDT) us Ben Blake MD NURSING TREATMENT ORDERABLES - BLOOD ADMIN Final Result * (ABNORMAL) POC INR (10/26/2024 12:41 AM EDT) Prothrombin Time INR, POC 2.0(H) 0.8 - 1.4 10/27/2024 6:51 AM EDT [facility] Comment: Test results may [...] City/[facility]/ZIP Co de Phone Number [facility] [address] [facility]. [address] * POC Sample Type (10/26/2024 12:39 AM EDT) POC Sample Type Arterial 10/26/2024 1:38 AM EDT [facility] Blood, Arterial 10/26/2024 1 2:39 AM EDT 10/26/2024 1:38 AM EDT us Semaj Mcnair III, MD POINT OF CARE TEST ORDERABLES Final Result Performing Organization Address [facility] Co de Phone Number [facility] [address] [facility]. [address] * POC Anion Gap (10/26/2024 12:39 AM EDT) Pathologist [facility] POC Anion Gap, Arterial 13 3 - 16 mmol/L 10/26/2024 1:38 AM EDT [facility] Blood, Arterial 10/26/2024 1 2:39 AM EDT 10/26/2024 1:38 AM EDT Semaj Mcnair III, MD POINT OF CARE TEST ORDERABLES Final Result Performing Organization Address City/[facility] Co de Phone Number [facility] [address] [facility]. [address] * POC Chloride (10/26/2024 12:39 AM EDT) POC Chloride 103 98 - 110 mmol/L 10/26/2024 1:38 AM EDT [facility] Blood, Arterial 10/26/2024 1 2:39 AM EDT 10/26/2024 1:38 AM EDT us Semaj Mcnair III, MD POINT OF CARE TEST ORDERABLES Final Result Performing Organization Address [facility] Co de Phone Number [facility] [address] [facility]. [address] * (ABNORMAL) POC Hemoglobin (10/26/2024 12:39 AM EDT) Pathologist [facility] POC Hemoglobin 7.9(L) 14.0 - 18.0 g/dL 10/26/2024 1:38 AM EDT [facility] Blood, Arterial 10/26/2024 1 2:39 AM EDT 10/26/2024 1:38 AM EDT us Semaj Mcnair III, MD POINT OF CARE TEST ORDERABLES Final Result Performing Organization Address [facility] Co de Phone Number [facility] [address] [facility]. [address] * (ABNORMAL) POC hematocrit (10/26/2024 12:39 AM EDT) [facility] POC Hematocrit 23.0(L) 40 - 52 % 10/26/2024 1:38 AM EDT [facility] Blood, Arterial 10/26/2024 1 2:39 AM EDT 10/26/2024 1:38 AM EDT us Semaj Mcnair III, MD POINT OF CARE TEST ORDERABLES Final Result Performing Organization Address [facility] Co de Phone Number [facility] [address] [facility]. [address] * POC Lactate (10/26/2024 12:39 AM EDT) Pathologist [facility] POC Lactate 1.39 0.50 - 2.20 mmol/L 10/26/2024 1:38 AM EDT [facility] Blood, Arterial 10/26/2024 1 2:39 AM EDT 10/26/2024 1:38 AM EDT us Semaj Mcnair III, MD POINT OF CARE TEST ORDERABLES Final Result Performing Organization Address City/[facility] Co de Phone Number [facility] [address] [facility]. [address] * (ABNORMAL) POC Glucose (10/26/2024 12:39 AM EDT) POC Glucose, Arterial 116(H) 70 - 100 mg/dL 10/26/2024 1:38 AM EDT [facility] Blood, Arterial 10/26/2024 1 2:39 AM EDT 10/26/2024 1:38 AM EDT us Semaj Mcnair III, MD POINT OF CARE TEST ORDERABLES Final Result Performing Organization Address [facility] Co de Phone Number [facility] [address] [facility]. [address] * (ABNORMAL) POC Ionized Calcium (10/26/2024 12:39 AM EDT) POC Ionized Calcium 4.30(L) 4.50 - 5.30 mg/dL 10/26/2024 1:38 AM EDT [facility] Blood, Arterial 10/26/2024 1 2:39 AM EDT 10/26/2024 1:38 AM EDT us Semaj Mcnair III, MD POINT OF CARE TEST ORDERABLES Final Result Performing Organization Address City/[facility] Co de Phone Number [facility] [address] [facility]. [address] * (ABNORMAL) POC Potassium (10/26/2024 12:39 AM EDT) POC Potassium 2.4(LL) 3.5 - 5.3 mmol/L 10/26/2024 1:38 AM EDT [facility] Blood, Arterial 10/26/2024 1 2:39 AM EDT 10/26/2024 1:38 AM EDT us Semaj Mcnair III, MD POINT OF CARE TEST ORDERABLES Final Result Performing Organization Address City/[facility] Co de Phone Number [facility] [address] * POC Sodium (10/26/2024 12:39 AM EDT) POC Sodium 136 136 - 146 mmol/L 10/26/2024 1:38 AM EDT [facility] Blood, Arterial 10/26/2024 1 2:39 AM EDT 10/26/2024 1:38 AM EDT us Semaj Mcnair III, MD POINT OF CARE TEST ORDERABLES Final Result Performing Organization Address [facility] Co de Phone Number [facility] [address] * (ABNORMAL) POC TCO2 (10/26/2024 12:39 AM EDT) POC TCO2, Arterial 21(L) 23 - 27 mmol/L 10/26/2024 1:38 AM EDT [facility] Blood, Arterial 10/26/2024 1 2:39 AM EDT 10/26/2024 1:38 AM EDT us Semaj Mcnair III, MD POINT OF CARE TEST ORDERABLES Final Result Performing Organization Address City/[facility] Co de Phone Number [facility] [address] * POC O2 SAT (10/26/2024 12:39 AM EDT) POC O2 Saturation, Arterial 98 95 - 98 % 10/26/2024 1:38 AM EDT [facility] Blood, Arterial 10/26/2024 1 2:39 AM EDT 10/26/2024 1:38 AM EDT us Semaj Mcnair III, MD POINT OF CARE TEST ORDERABLES Final Result Performing Organization Address [facility] Co de Phone Number [facility] [address] * (ABNORMAL) POC Base Excess (10/26/2024 12:39 AM EDT) POC Base Excess, Arterial -7(L) -2 - 3 mmol/L 10/26/2024 1:38 AM EDT [facility] Blood, Arterial 10/26/2024 1 2:39 AM EDT 10/26/2024 1:38 AM EDT us Semaj Mcnair III, MD POINT OF CARE TEST ORDERABLES Final Result Performing Organization Address [facility] de Phone Number [facility] [address] * (ABNORMAL) POC HCO3 (10/26/2024 12:39 AM EDT) POC HCO3, Arterial 20(L) 22 - 26 mmol/L 10/26/2024 1:38 AM EDT [facility] Blood, Arterial 10/26/2024 1 2:39 AM EDT 10/26/2024 1:38 AM EDT us Semaj Mcnair III, MD POINT OF CARE TEST ORDERABLES Final Result Performing Organization Address [facility] Co de Phone Number [facility] [address] * (ABNORMAL) POC PO2 (10/26/2024 12:39 AM EDT) POC pO2, Arterial 117(H) 80 - 100 mm Hg 10/26/2024 1:38 AM EDT [facility] Blood, Arterial 10/26/2024 1 2:39 AM EDT 10/26/2024 1:38 AM EDT Result [facility] Semaj Mcnair III, MD POINT OF CARE TEST ORDERABLES Final Result Performing Organization Address [facility] Co de Phone Number [facility] [address] * (ABNORMAL) POC PCO2 (10/26/2024 12:39 AM EDT) POC pCO2, Arterial 46(H) 35 - 45 mm Hg 10/26/2024 1:38 AM EDT [facility] Blood, Arterial 10/26/2024 1 2:39 AM EDT 10/26/2024 1:38 AM EDT Semaj Mcnair III, MD POINT OF CARE TEST ORDERABLES Final Result Performing Organization Address [facility] Co de Phone Number [facility] [address] * (ABNORMAL) POC pH (10/26/2024 12:39 AM EDT) POC pH, Arterial 7.24(L) 7.35 - 7.45 10/26/2024 1:38 AM EDT [facility] Blood, Arterial 10/26/2024 1 2:39 AM EDT 10/26/2024 1:38 AM EDT Result [facility] Semaj Mcnair III, MD POINT OF CARE TEST ORDERABLES Final Result Performing Organization Address [facility] Co de Phone Number [facility] [address] * Transfuse Platelets (10/26/2024 12:37 AM EDT) Result [facility] Ben Blake MD NURSING TREATMENT ORDERABLES - BLOOD ADMIN Final Result * Transfuse RBC (10/26/2024 12:31 AM EDT) Result [facility] Ben Blake MD NURSING TREATMENT [...] AM EDT) Gram Stain Result Cytospin Results: [facility] Gram Stain Result Polymorphonuclear Leukocytes Seen; [facility] Gram Stain Result No Organisms Seen; [facility] Culture Result No Growth After 3 Days [facility] Surgical Swab ABDOMEN / Unknown 12:03 AM EDT Comment:2.) Ascites Anaerobhic culture Fungus culture Routine culture plus stain Narrative [facility] - 10/28/2024 9:38 PM EDT 2.) Ascites Anaerobhic culture Fungus culture Routine culture plus stain 2.) Ascites Semaj Mcnair III, MD MICROBIOLOGY - [facility] ORDERABLES Final Result Performing Organization Address City/State/[facility] Co de Phone Number [facility] [address] [place] [address], [facility] * Surgical Pathology Exam (10/26/2024 12:00 AM EDT) 10/26/2024 10/27/2024 Narrative [facility] - 10/26/2024 12:00 AM EDT CASE: [id number] PATIENT: BLAIR GILBERT Clinical History: Liver - kidney transplant Pre-Operative Diagnosis: Alcoholic cirrhosis of liver Post-Operative Diagnosis: Alcoholic cirrhosis of liver Specimen(s) Submitted: [facility] CPT Code(s): 67061 X 1; 66145 X 5 Additional Information: FINAL DIAGNOSIS: A. 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 - Negative for neoplasm. - Increased hepatocellular iron deposition (3+; Modified Scheuer). Gall bladder: -Intramucosal and submucosal vascular congestion and hemorrhage. - Negative for dysplasia or malignancy. Gross Description: Received in formalin, labeled Blair Gilbert and [facility] , is a 2338-gram, hepatectomy specimen [...] discrete masses or other lesions are identified. Do All Operator sections are submitted in cassettes [id number] as follows: A1: Hilar margins, en face. [...] Pathologist signing this report is located at [facility], [address] [place] [address], [place], [address], , CLIA ID: [id number] us Semaj Mcnair III, MD PATHOLOGY/CYTOLOGY ORDERABLES Final Result Performing Organization Address City/[facility]/ZIP Co de Phone Number [facility] * [...] PM EDT 10/27/2024 6:51 AM EDT us Semaj Mcnair III, MD POINT OF CARE TEST ORDERABLES Final Result [facility] [address] * POC Sample Type (10/25/2024 11:40 PM EDT) POC Sample Type Arterial 10/25/2024 11:57 PM EDT [facility] Blood, Arterial 10/25/2024 1 1:40 PM EDT 10/25/2024 11:57 PM EDT us Semaj Mcnair III, MD POINT OF CARE TEST ORDERABLES Final Result Performing Organization Address City/[facility]/ZIP Co de Phone Number [facility] [address] * POC Anion Gap (10/25/2024 11:40 PM EDT) POC Anion Gap, Arterial 13 3 - 16 mmol/L 10/25/2024 11:57 PM EDT [facility] Blood, Arterial 10/25/2024 1 1:40 PM EDT 10/25/2024 11:57 PM EDT us Semaj Mcnair III, MD POINT OF CARE TEST ORDERABLES Final Result Performing Organization Address [facility] Co de Phone Number [facility] [address] * POC Chloride (10/25/2024 11:40 PM EDT) POC Chloride 102 98 - 110 mmol/L 10/25/2024 11:57 PM EDT [facility] Blood, Arterial 10/25/2024 1 1:40 PM EDT 10/25/2024 11:57 PM EDT us Semaj Mcnair III, MD POINT OF CARE TEST ORDERABLES Final Result Performing Organization Address City/[facility] Co de Phone Number [facility] [address] * (ABNORMAL) POC Hemoglobin (10/25/2024 11:40 PM EDT) POC Hemoglobin 6.6(L) 14.0 - 18.0 g/dL 10/25/2024 11:57 PM EDT [facility] Blood, Arterial 10/25/2024 1 1:40 PM EDT 10/25/2024 11:57 PM EDT Semaj Mcnair III, MD POINT OF CARE TEST ORDERABLES Final Result Performing Organization Address City/[facility] Co de Phone Number [facility] [address] [facility]. [address] * (ABNORMAL) POC hematocrit (10/25/2024 11:40 PM EDT) POC Hematocrit 19.0(L) 40 - 52 % 10/25/2024 11:57 PM EDT [facility] Blood, Arterial 10/25/2024 1 1:40 PM EDT 10/25/2024 11:57 PM EDT Semaj Mcnair III, MD POINT OF CARE TEST ORDERABLES Final Result Performing Organization Address [facility] Co de Phone Number [facility] [address] [place], [place] [address]ue [facility]. [address] * POC Lactate (10/25/2024 11:40 PM EDT) POC Lactate 1.36 0.50 - 2.20 mmol/L 10/25/2024 11:57 PM EDT [facility] Blood, Arterial 10/25/2024 1 1:40 PM EDT 10/25/2024 11:57 PM EDT Semaj Mcnair III, MD POINT OF CARE TEST ORDERABLES Final Result Performing Organization Address City/[facility] Co de Phone Number [facility] [address]. [address] * (ABNORMAL) POC Glucose (10/25/2024 11:40 PM EDT) POC Glucose, Arterial 101(H) 70 - 100 mg/dL 10/25/2024 11:57 PM EDT [facility] Blood, Arterial 10/25/2024 1 1:40 PM EDT 10/25/2024 11:57 PM EDT us Semaj Mcnair III, MD POINT OF CARE TEST ORDERABLES Final Result Performing Organization Address City/[facility]/ZIP Co de Phone Number [facility] [address] [place] [address]. [address] * POC Ionized Calcium (10/25/2024 11:40 PM EDT) POC Ionized Calcium 4.50 4.50 - 5.30 mg/dL 10/25/2024 11:57 PM EDT [facility] Blood, Arterial 10/25/2024 1 1:40 PM EDT 10/25/2024 11:57 PM EDT Semaj Mcnair III, MD POINT OF CARE TEST ORDERABLES Final Result Performing Organization Address [facility] Co de Phone Number [address] * (ABNORMAL) POC Potassium (10/25/2024 11:40 PM EDT) Pathologist [facility] POC Potassium 1.9(LL) 3.5 - 5.3 mmol/L 10/25/2024 11:57 PM EDT [facility] Blood, Arterial 10/25/2024 1 1:40 PM EDT 10/25/2024 11:57 PM EDT us Semaj Mcnair III, MD POINT OF CARE TEST ORDERABLES Final Result Performing Organization Address City/[facility] Co de Phone Number [facility] [address] [place] [address]. [address] * (ABNORMAL) POC Sodium (10/25/2024 11:40 PM EDT) POC Sodium 135(L) 136 - 146 mmol/L 10/25/2024 11:57 PM EDT [facility] Blood, Arterial 10/25/2024 1 1:40 PM EDT 10/25/2024 11:57 PM EDT Semaj Mcnair III, MD POINT OF CARE TEST ORDERABLES Final Result [facility] [address] [facility]. [address] * (ABNORMAL) POC TCO2 (10/25/2024 11:40 PM EDT) POC TCO2, Arterial 21(L) 23 - 27 mmol/L 10/25/2024 11:57 PM EDT [facility] Blood, Arterial 10/25/2024 1 1:40 PM EDT 10/25/2024 11:57 PM EDT Semaj Mcnair III, MD POINT OF CARE TEST ORDERABLES Final Result Performing Organization Address City/[facility]/ZIP Co de Phone Number [facility] [address] [place], [place] [address]ue [facility]. [address] * POC O2 SAT (10/25/2024 11:40 PM EDT) POC O2 Saturation, Arterial 98 95 - 98 % 10/25/2024 11:57 PM EDT [facility] Blood, Arterial 10/25/2024 1 1:40 PM EDT 10/25/2024 11:57 PM EDT Semaj Mcnair III, MD POINT OF CARE TEST ORDERABLES Final Result [facility]. [address] * (ABNORMAL) POC Base Excess (10/25/2024 11:40 PM EDT) POC Base Excess, Arterial -6(L) -2 - 3 mmol/L 10/25/2024 11:57 PM EDT [facility] Blood, Arterial 10/25/2024 1 1:40 PM EDT 10/25/2024 11:57 PM EDT Semaj Mcnair III, MD POINT OF CARE TEST ORDERABLES Final Result Performing Organization Address [facility] Co de Phone Number [facility] [address] * (ABNORMAL) POC HCO3 (10/25/2024 11:40 PM EDT) POC HCO3, Arterial 20(L) 22 - 26 mmol/L 10/25/2024 11:57 PM EDT [facility] Blood, Arterial 10/25/2024 1 1:40 PM EDT 10/25/2024 11:57 PM EDT Semaj Mcnair III, MD POINT OF CARE TEST ORDERABLES Final Result Performing Organization Address [facility] Co de Phone Number [facility] [address] [facility]. [address] * (ABNORMAL) POC PO2 (10/25/2024 11:40 PM EDT) POC pO2, Arterial 107(H) 80 - 100 mm Hg 10/25/2024 11:57 PM EDT [facility] Blood, Arterial 10/25/2024 1 1:40 PM EDT 10/25/2024 11:57 PM EDT Semaj Mcnair III, MD POINT OF CARE TEST ORDERABLES Final Result Performing Organization Address [facility] Co de Phone Number [facility] [address] [facility]. [address] * POC PCO2 (10/25/2024 11:40 PM EDT) POC pCO2, Arterial 41 35 - 45 mm Hg 10/25/2024 11:57 PM EDT [facility] Blood, Arterial 10/25/2024 1 1:40 PM EDT 10/25/2024 11:57 PM EDT Semaj Mcnair III, MD POINT OF CARE TEST ORDERABLES Final Result Performing Organization Address [facility] Co de Phone Number [facility] [address] [facility]. [address] * (ABNORMAL) POC pH (10/25/2024 11:40 PM EDT) POC pH, Arterial 7.29(L) 7.35 - 7.45 10/25/2024 11:57 PM EDT [facility] Blood, Arterial 10/25/2024 1 1:40 PM EDT 10/25/2024 11:57 PM EDT Semaj Mcnair III, MD POINT OF CARE TEST ORDERABLES Final Result Performing Organization Address [facility] Co de Phone Number [facility] [address] [facility]. [address] * Urine culture (10/25/2024 11:08 PM EDT) Culture Result <1,000 cfu/mL [facility] Culture Result Skin/Urogeni rony Mckayla. No Further Workup. [facility] Newly Placed Berkowitz Urine URINE SPECIMEN / Unknown 10/25/2024 11:08 PM EDT Comment:urine culture Narrative [facility] - 10/28/2024 9:59 AM EDT urine culture urine culture us Semaj Mcnair III, MD MICROBIOLOGY - GENE RAL ORDERABLES Final Result Performing Organization Address [facility] Co de Phone Number [facility] [address] [facility]. [address] * X-ray Portable Chest (10/25/2024 10:19 [...] - 2.2 mmol/L 10/25/2024 10:39 PM EDT [facility] Plasma 10/25/2024 10:1 7 PM EDT 10/25/2024 10:17 PM EDT us Ben Blake MD LAB BLOOD ORDERABLES Final Re sult [facility] [address] [facility]. [address] * (ABNORMAL) Ferritin (10/25/2024 10:17 PM EDT) Ferritin 623.2(H) 23.9 - 336.2 ng/mL 10/25/2024 11:02 PM EDT [facility] Serum 10/25/2024 10:1 7 PM EDT 10/25/2024 10:17 PM EDT Leandra Og MD LAB BLOOD ORDERABLES F inal Result Performing Organization Address City/[facility]/ZIP Co de Phone Number [facility] [address] [facility]. [address] * Iron Studies (Iron + TIBC) (10/25/2024 10:17 PM EDT) Iron 128 50 - 212 ug/dL 10/25/2024 10:44 PM EDT [facility] % Iron Saturation SEE COMMENT 15.0 - 55.0 % 10/25/2024 10:44 PM EDT [facility] Comment:Unable to calculate result because contributing result outside reportable range.. TIBC SEE COMMENT 261 - 462 ug/dL 10/25/2024 10:44 PM EDT [facility] Comment:Unable to calculate result because contributing result outside reportable range.. Serum 10/25/2024 10:1 7 PM EDT 10/25/2024 10:17 PM EDT Leandra Og MD LAB BLOOD ORDERABLES F inal Result [facility] [address] [facility]. [address] * PTH (10/25/2024 10:17 PM EDT) PTH 36.0 12.0 - 88.0 pg/mL 10/25/2024 11:01 PM EDT [facility] Serum 10/25/2024 10:1 7 PM EDT 10/25/2024 10:17 PM EDT us Leandra Og MD LAB BLOOD ORDERABLES F inal Result [facility] [address] [facility]. [address] * HIV 1+2 Antibody/Antigen with Reflex (10/25/2024 10:17 PM EDT) HIV 1+2 AB/AGN Nonreactive Nonreactive 10/25/2024 11:03 PM EDT [facility] Serum 10/25/2024 10:1 7 PM EDT 10/25/2024 10:16 PM EDT Narrative [facility] - 10/25/2024 11:03 PM EDT \HIVRNR us Leandra Og MD LAB BLOOD ORDERABLES F inal Result [facility] [address] * Hepatitis B Core Antibody (10/25/2024 10:17 PM EDT) Hep B Core Total Ab Nonreactive Nonreactive 10/25/2024 11:07 PM EDT [facility] Comment:Health Department no tified [...] MD LAB BLOOD ORDERABLES F inal Result [facility] [address] [facility]. [address] * Hepatitis C Antibody (10/25/2024 10:17 PM EDT) HCV Ab Nonreactive Nonreactive 10/25/2024 11:16 PM EDT [facility] Comment:Health Department no tified in accordance with reportable infectious disease guidelines. Serum 10/25/2024 10:1 7 PM EDT 10/25/2024 10:17 PM EDT Narrative [facility] - 10/25/2024 11:16 PM EDT Antibodies to HCV not detected; does not exclude the possibility of exposure to HCV. Leandra Og MD LAB BLOOD ORDERABLES F inal Result Performing Organization Address City/[facility]/ZIP Co de Phone Number [facility] [address] [facility]. [address] * (ABNORMAL) Hepatitis B Surface Antibody, Quantitati (10/25/2024 10:17 PM EDT) HBSAB NUMBER 10.70(H) 0.00 - 9.99 mIU/mL 10/25/2024 11:52 PM EDT [facility] Hep B S Ab Equivocal (A) Nonreactive 10/25/2024 11:52 PM EDT [facility] Serum 10/25/2024 10:1 7 PM EDT 10/25/2024 10:17 PM EDT Leandra Og MD LAB BLOOD ORDERABLES F inal Result [facility] [address] [facility]. [address] * Hepatitis B surface antigen (10/25/2024 10:17 PM EDT) Hep B Surface Ag Nonreactive Nonreactive 10/25/2024 11:12 PM EDT [facility] Comment:Health Department no tified in accordance with reportable infectious disease guidelines. Serum 10/25/2024 10:1 7 PM EDT 10/25/2024 10:17 PM EDT [facility] - 10/25/2024 11:12 PM EDT Specimen is considered negative for HBsAg. us Leandra Og MD LAB BLOOD ORDERABLES F inal Result Performing Organization Address City/[facility]/ZIP Co de Phone Number [facility] [address] [facility]. [address] * Hepatitis A Antibody Total (10/25/2024 10:17 PM EDT) [facility] Anti-HAV Total (IgG + IgM) Nonreactive 10/25/2024 11:13 PM EDT [facility] Serum 10/25/2024 10:1 7 PM EDT 10/25/2024 10:17 PM EDT [facility] - 10/25/2024 11:13 PM EDT HAV antibodies not detected Leandra Og MD LAB BLOOD ORDERABLES F inal Result Performing Organization Address [facility] Co de Phone Number [facility] [address] [facility]. [address] * (ABNORMAL) Hepatic Function Panel (10/25/2024 10:17 PM EDT) [facility] Total Bilirubin 9.1(H) 0.0 - 1.5 mg/dL 10/25/2024 10:47 PM EDT [facility] Bilirubin, Direct 4.58(H) 0.00 - 0.40 mg/dL 10/25/2024 10:47 PM EDT [facility] AST 51(H) 13 - 39 U/L 10/25/2024 10:47 PM EDT [facility] ALT 23 7 - 52 U/L 10/25/2024 10:47 PM EDT [facility] Alkaline Phosphatase 144(H) 36 - 125 U/L 10/25/2024 10:47 PM EDT [facility] Total Protein 5.5(L) 6.4 - 8.9 g/dL 10/25/2024 10:47 PM EDT [facility] Albumin 3.5 3.5 - 5.7 g/dL 10/25/2024 10:47 PM EDT [facility] Bilirubin, Indirect 4.52(H) 0.00 - 1.10 mg/dL 10/25/2024 10:47 PM EDT [facility] Plasma 10/25/2024 10:1 7 PM EDT 10/25/2024 10:17 PM EDT us Leandra Og MD LAB BLOOD ORDERABLES F inal Result [facility] [address] [place], [place] [address] * (ABNORMAL) Renal Function Panel w/EGFR (10/25/2024 10:17 PM EDT) Sodium 137 133 - 146 mmol/L 10/25/2024 10:47 PM EDT [facility] Potassium 2.1(LL) 3.5 - 5.3 mmol/L 10/25/2024 10:47 PM EDT [facility] Comment:Critical Result K:2. 1 Called to and read back by: ALICIA CARCAMO RN at: 10/25/2024 22:47:45 by:NANCY Chloride 100 98 - 110 mmol/L 10/25/2024 10:47 PM EDT [facility] CO2 20(L) 21 - 33 mmol/L 10/25/2024 10:47 PM EDT [facility] Anion Gap 17(H) 3 - 16 mmol/L 10/25/2024 10:47 PM EDT [facility] BUN 74(H) 7 - 25 mg/dL 10/25/2024 10:47 PM EDT [facility] Creatinine 3.87(H) 0.60 - 1.30 mg/dL 10/25/2024 10:47 PM EDT [facility] Glucose 114(H) 70 - 100 mg/dL 10/25/2024 10:47 PM EDT [facility] Calcium 9.3 8.6 - 10.3 mg/dL 10/25/2024 10:47 PM EDT [facility] Phosphorus 5.9(H) 2.1 - 4.7 mg/dL 10/25/2024 10:47 PM EDT [facility] Albumin 3.5 3.5 - 5.7 g/dL 10/25/2024 10:47 PM EDT [facility] Osmolality, Calculated 307(H) 278 - 305 mOsm/kg 10/25/2024 10:47 PM EDT [facility] EGFR 19 10/25/2024 10:47 PM EDT [facility] Comment:As of 2021, the [...] City/[facility]/ZIP Co de Phone Number [facility] [address] [facility]. [address] * (ABNORMAL) APTT, NO ANTICOAGULANT (10/25/2024 10:17 PM EDT) aPTT 41.7(H) 25.5 - 35.0 seconds 10/25/2024 10:36 PM EDT [facility] Plasma 10/25/2024 10:1 7 PM EDT 10/25/2024 10:17 PM EDT Leandra Og MD LAB BLOOD ORDERABLES F inal Result Performing Organization Address City/[facility]/ZIP Co de Phone Number [facility] [address] [facility]. [address] * (ABNORMAL) Protime-INR (10/25/2024 10:17 PM [...] MD LAB BLOOD ORDERABLES F inal Result [facility] [address] * (ABNORMAL) Differential (10/25/2024 10:17 PM EDT) Differential Comments See Note 10/25/2024 10:54 PM EDT [facility] Comment: _Platelets Appear Decreased _Platelet Morphology Normal Scan Result PERFORMED 10/25/2024 10:54 PM EDT [facility] Neutrophils Relative 79.8 40.0 - 80.0 % 10/25/2024 10:54 PM EDT [facility] Lymphocytes Relative 9.6(L) 15.0 - 45.0 % 10/25/2024 10:54 PM EDT [facility] Monocytes Relative 8.9 0.0 - 12.0 % 10/25/2024 10:54 PM EDT [facility] Eosinophils Relative 1.3 0.0 - 8.0 % 10/25/2024 10:54 PM EDT [facility] Basophils Relative 0.4 0.0 - 1.0 % 10/25/2024 10:54 PM EDT [facility] nRBC 0 0 - 0 /100 WBC 10/25/2024 10:54 PM EDT [facility] Neutrophils Absolute 4,948 1,520 - 8,640 /uL 10/25/2024 10:54 PM EDT [facility] Lymphocytes Absolute 595 570 - 4,860 /uL 10/25/2024 10:54 PM EDT [facility] Monocytes Absolute 552 0 - 1,296 /uL 10/25/2024 10:54 PM EDT [facility] Eosinophils Absolute 81 0 - 864 /uL 10/25/2024 10:54 PM EDT [facility] Basophils Absolute 25 0 - 108 /uL 10/25/2024 10:54 PM EDT [facility] PLT Morphology Platelet morphology appears normal 10/25/2024 10:54 PM EDT [facility] Whole Blood 10/25/2024 10:1 7 PM EDT 10/25/2024 10:17 PM EDT us Leandra Og MD LAB BLOOD ORDERABLES F inal Result [facility] [address] * (ABNORMAL) CBC (10/25/2024 10:17 PM EDT) WBC 6.2 3.8 - 10.8 10E3/uL 10/25/2024 10:54 PM EDT [facility] RBC 2.40(L) 4.20 - 5.80 10E6/uL 10/25/2024 10:54 PM EDT [facility] Hemoglobin 8.3(L) 13.2 - 17.1 g/dL 10/25/2024 10:54 PM EDT [facility] Hematocrit 23.7(L) 38.5 - 50.0 % 10/25/2024 10:54 PM EDT [facility] MCV 98.9 80.0 - 100.0 fL 10/25/2024 10:54 PM EDT [facility] MCH 34.6(H) 27.0 - 33.0 pg 10/25/2024 10:54 PM EDT [facility] MCHC 35.0 32.0 - 36.0 g/dL 10/25/2024 10:54 PM EDT [facility] RDW 17.8(H) 11.0 - 15.0 % 10/25/2024 10:54 PM EDT [facility] Platelets 56(L) 140 - 400 10E3/uL 10/25/2024 10:54 PM EDT [facility] Comment: Specimen checked for clots. None detected. Slide Reviewed for PLT Clumps. None Seen. Platelet Estimate Decreased 10/25/2024 10:54 PM EDT [facility] MPV 8.1 7.5 - 11.5 fL 10/25/2024 10:54 PM EDT [facility] Whole Blood 10/25/2024 10:1 7 PM EDT 10/25/2024 10:17 PM EDT Narrative [facility] - 10/25/2024 10:54 PM EDT Peripheral blood smear was scanned per review criteria approved by the laboratory medical recruiter. Leandra Og MD LAB BLOOD ORDERABLES F inal Result Performing Organization Address [facility] Co de Phone Number [address] * Donor Specific Antibody (DSA) (10/25/2024 10:00 PM EDT) AntiDonor Antibodies The request and specimen(s) for this test have been received and transported to the [facility] at [address] [place] [address] [facility] will report results directly to the client. 10/25/2024 10:20 PM EDT [facility] Comment:Testing performed by [facility], [facility], [address] [place] [address] [facility] report has been forwarded to the appropriate ordering location. Please refer to this report for patient results. Serum 10/25/2024 10:0 0 PM EDT 10/25/2024 10:20 PM EDT Leandra Og MD LAB BLOOD ORDERABLES F inal Result Performing Organization Address [facility] Co de Phone Number [facility] [address] [place] [address] * (ABNORMAL) Venous Blood Gas, Line/Syringe (10/25/2024 10:00 PM EDT) PH-Line Draw 7.38 7.32 - 7.42 10/25/2024 10:08 PM EDT [facility] PCO2-Line Draw 33(L) 41 - 51 mm Hg 10/25/2024 10:08 PM EDT [facility] PO2-Line Draw 33 25 - 40 mm Hg 10/25/2024 10:08 PM EDT [facility] HCO3-Line Draw 20(L) 24 - 28 mmol/L 10/25/2024 10:08 PM EDT [facility] CO2 Content-Line Draw 21(L) 25 - 29 mmol/L 10/25/2024 10:08 PM EDT [facility] Base Excess-Line Draw -5.0(L) -2.0 - 3.0 mmol/L 10/25/2024 10:08 PM EDT [facility] %HBO2-Line Draw 53.8 40.0 - 70.0 % 10/25/2024 10:08 PM EDT [facility] Carboxyhgb-Ludivina e Draw 1.9 % 10/25/2024 10:08 PM EDT [facility] Comment: CARBOXYHEMOGLOBIN (CO) REFERENCE RANGES: Non-Smokers: <2 % Smokers: <8 % TOXIC: >20 % Methemoglobin- Line Draw 0.2 0.0 - 1.5 % 10/25/2024 10:08 PM EDT [facility] Reduced Hemoglobin-Ludivina e Draw 44.1(H) 0.0 - 5.0 % 10/25/2024 10:08 PM EDT [facility] Venous, Line Draw 10/25/2024 10:00 PM EDT 10/25/2024 10:04 PM EDT us Leandra Og MD LAB BLOOD ORDERABLES F inal Result [facility] [address] [facility] [place] [address], [facility] * (ABNORMAL) POC Glucose Monitoring Device (10/25/2024 9:56 PM EDT) POC Glucose Monitoring Device 103(H) 70 - 100 mg/dL 10/25/2024 9:58 PM EDT [facility] Blood 10/25/2024 9:56 PM EDT 10/25/2024 9:57 PM EDT Semaj Mcnair III, MD POINT OF CARE TEST ORDERABLES Final Result Performing Organization Address [facility] Co de Phone Number [facility] [address] * ECG 12 lead (MUSE) (10/25/2024 9:34 PM EDT) 10/25/2024 9:34 PM EDT Narrative MUSE - 10/27/2024 10:08 AM EDT Ventricular Rate: 97 BPM Atrial Rate: 86 BPM QRS Duration: 106 ms QT: 532 ms QTc: 675 ms P Langeloth: 38 degrees R Langeloth: -29 degrees T Langeloth: 32 degrees Diagnosis Line: Critical Test Result: Long QTc , AV Block ^ SINUS RHYTHM WITH PREMATURE VENTRICULAR COMPLEXES ^ PROLONGED QT ^ NONSPECIFIC ST AND T WAVE CHANGES ^ ABNORMAL ECG ^ ^ Confirmed by MD HA, [facility] ([id number]) on 10/27/2024 10:08:26 AM us Leandra Og MD ECG ORDERABLES Final Result Performing Organization Address [facility] de Phone Number MUSE * Hepatitis C RNA, Quant Reflex to Genotyp (10/25/2024 8:18 PM EDT) International Units Not Detected IU/mL 10/27/2024 11:03 AM EDT [facility] Comment:Test methodology for HCV RNA quantification is an FDA-approved nucleic acid amplification assay. The Lower Limit of Quantitation (LLOQ) is 15 IU/mL. The linear range of the assay is 15-100,000,000 IU/mL. The Limit of Detection (LoD) is 12.0 IU/mL for EDTA plasma. The reference range is Not Detected. IU log10 See Note log 10 IU/mL 10/27/2024 11:03 AM EDT [facility] Comment:HCV RNA not detected . Plasma 10/25/2024 8:18 PM EDT 10/25/2024 10:27 PM EDT us Leandra Og MD LAB BLOOD ORDERABLES F inal Result [facility] [address] [address], [facility] * Urinalysis w/Rfl to Microscopic (10/25/2024 8:18 PM EDT) Color, UA Yellow Yellow,Straw 10/25/2024 10:38 PM EDT [facility] Clarity, UA Clear Clear 10/25/2024 10:38 PM EDT [facility] Specific [place], UA 1.010 1.005 - 1.035 10/25/2024 10:38 PM EDT [facility] pH, UA 6.0 5.0 - 8.0 10/25/2024 10:38 PM EDT [facility] Protein, UA Negative Negative mg/dL 10/25/2024 10:38 PM EDT [facility] Glucose, UA Negative Negative mg/dL 10/25/2024 10:38 PM EDT [facility] Ketones, UA Negative Negative mg/dL 10/25/2024 10:38 PM EDT [facility] Bilirubin, UA Negative Negative 10/25/2024 10:38 PM EDT [facility] Blood, UA Negative Negative 10/25/2024 10:38 PM EDT [facility] Nitrite, UA Negative Negative 10/25/2024 10:38 PM EDT [facility] Urobilinogen, UA <2.0 0.2 - 1.9 mg/dL 10/25/2024 10:38 PM EDT [facility] Leukocyte Esterase, UA Negative Negative 10/25/2024 10:38 PM EDT [facility] Urine 10/25/2024 8:18 PM EDT 10/25/2024 10:35 PM EDT Narrative [facility] - 10/25/2024 10:38 PM EDT Microscopic testing is not performed when the dipstick is negative for blood, leukocyte, protein and nitrite. us Leandra Og MD URINE ORDERABLES Final Result Performing Organization Address City/[facility]/ZIP Co de Phone Number [facility] [address] * Toxoplasma gondii antibody, IgG (10/25/2024 8:18 PM EDT) Pathologist [facility] Toxoplasma Gondii IgG <3.0 0.0 - 7.1 IU/mL 10/27/2024 7:55 AM EDT [facility] Comment: Negative <7.2 Equivocal 7.2 - 8.7 Positive >8.7 Serum 10/25/2024 8:18 PM EDT 10/27/2024 8:06 AM EDT [facility] - 10/27/2024 8:06 AM EDT PERFORMED AT: [facility] [id number] SUPERVISOR FILES: Bassam Khalil, PhD PHONE: [phone] Leandra Og MD LAB BLOOD ORDERABLES F inal Result Performing Organization Address [facility]/ZIP Co de Phone Number [facility] [address] [facility]. [address] * Antibody Screen (10/25/2024 7:46 PM EDT) [facility] Antibody Screen Negative 10/25/2024 10:41 PM EDT [facility] Blood 10/25/2024 7:46 PM EDT 10/25/2024 9:54 PM EDT [facility] - 10/25/2024 10:44 PM EDT Testing performed by [facility] Transfusion Service Ben Blake MD BLOOD BANK TEST ORDERABLES Fi nal Result [facility] [address] [facility]. [address] * ABO/Rh (10/25/2024 7:46 PM EDT) Pathologist [facility] ABO Grouping O 10/25/2024 10:23 PM EDT [facility] Rh Type Positive 10/25/2024 10:23 PM EDT [facility] Blood 10/25/2024 7:46 PM EDT 10/25/2024 9:54 PM EDT Ben Blake MD BLOOD BANK TEST ORDERABLES Fi nal Result [facility] [address] [place] [address], [facility] * (ABNORMAL) TEG-Standard Global Hemostasis (Rapid TEG with Heparin Effect, Contains a Baseline TEG) (10/25/2024 7:46 PM EDT) Citrated Kaolin Reaction Time (TEGHEPARINASE) 8.4 4.6 - 9.1 minutes 10/25/2024 10:49 PM EDT [facility] Citrated Rapid Teg Maximum Amplitude (TEGHEPARINASE) <40.0(L) 52.0 - 70.0 mm 10/25/2024 10:49 PM EDT [facility] Citrated Functional Fibrinogen Maximum Amplitude (TEGHEPARINASE) 6.7(L) 15.0 - 32.0 mm 10/25/2024 10:49 PM EDT [facility] Citrated Kaolin W/Heparinase Reaction Time (TEGHEPARINASE) 8.1 4.3 - 8.3 minutes 10/25/2024 10:49 PM EDT [facility] Citrated Kaolin K-Time (TEGHEPARINASE) 2.5(A) 0.8 - 2.1 minutes 10/25/2024 10:49 PM EDT [facility] Citrated Kaolin Angle (TEGHEPARINASE) 65.7(A) 63.0 - 78.0 degrees 10/25/2024 10:49 PM EDT [facility] Citrated Kaolin Maximum Amplitude (TEGHEPARINASE) <40.0(L) 52.0 - 69.0 mm 10/25/2024 10:49 PM EDT [facility] Citrated Functional Fibrinogen- Fibrinogen Level (TEGHEPARINASE) 159.5(L) 278.0 - 581.0 mg/dL 10/25/2024 10:49 PM EDT [facility] Whole Blood (Citrate) 10/25/2024 7:46 PM EDT 10/25/2024 10:15 PM EDT us Ben Blake MD LAB BLOOD ORDERABLES Final Re sult [facility] [address] [address], [facility] documented in this [...] RN) 0620 (Given - Provider: Yvonne Gale, ЮЛИЯ)1017 [...] Yvonne Gale RN) 1021 (Given - Provider: Paueltte Flannery RN)1344 (Given - Provider: Paulette Flannery RN)212 (Given - Provider: Yvonne Gale RN) 1149 (Given - Provider: Paulette Flannery RN)1531 (Given - Provider: Meka Montalvo RN) heparin (porcine) injection 5,000 Units 5,000 Units, Subcutaneous, Every 8 hours scheduled (3 times per day), First dose on Sun10/26/24 at 0600 0614 (Given - Provider: Vandana Vilchis RN)1255 (Given - Provider: Paulette Flannery, ЮЛИЯ)2055 (Given - Provider: Yvonne Gale RN) 0614 (Given - Provider: Yvonne Gale RN)1345 (Given - Provider: Paulette lFannery RN)2119 (Given - Provider: Yvonne Gale, ЮЛИЯ) [...] Gale RN) 101 (Given - Provider: Paulette Flannery, ЮЛИЯ)2118 (Given - Provider: Yvonne Gale, ЮЛИЯ) 114 [...] RN) 0543 (Given - Provider: Yvonne Gale, ЮЛИЯ) [...] CRUSH or CHEW; TABLET(S) MAY BE SPLIT 212 (Given - Provider: Yvonne Gale RN) potassium [...] Group 4) 250 mg, Oral, Once, On Sun11/01/24 at [...] 0920 1031 (Given - Provider: Paulette Flannery, RN)1434 (Given - Provider: Paulette Flannery RN)1844 (Given - Provider: Vivi Newton, ЮЛИЯ)2232 (Given - Provider: Yvonne Gale RN) 0215 (Given - Provider: Yvonne Gale, ЮЛИЯ)0615 (Given - Provider: Yvonne Gale, RN)1153 (Given - Provider: Paulette Flannery, ЮЛИЯ)1714 (Given - Provider: Paulette Flannery RN)2120 (Given - Provider: Yvonne Gale RN) 0123 (Given - Provider: Yvonne Gale RN)0543 (Given - Provider: Yvonne Gale, RN)1219 (Given - Provider: Paulette Flannery RN) [...] documented as of this encounter Care Teams Pediatric Medical Assistant Relationship Specialty Start Date End Date Enedina Mcguire NP [address] [place] [address] PCP - General Internal Medicine 5/25/25 documented as of this encounter
--- OUTSIDE RECORDS SUMMARY | 2024-10-25 22:54 | XMS_ITS | Encounter Summary ---
Author Organization [facility] Address [facility] [place] [address] Care Team Providers Care Jail Guard Name Role Phone Enedina Mcguire NP Primary Care Provider [phone] Source Comments This information has been disclosed [...] release of HIV test results or diagnoses. [id number] Reason for Visit * Auth/Cert (Routine) Specialty Diagnoses / Procedures Referred By Shane t Referred To Contact Surgical Intensive Care Diagnoses Liver transplant recipient (CMS-HCC) cirrhosis and CKD Procedures LIVER-KIDNEY TRANSPLANT [facility] SICU [address] [place] [address] Phone: tel: Referral ID Status Reason Start Date Expiration Date Visits Re quested Visits Authorized [id number] 1 1 Encounter Details Date Type Department Care Team (Late st Contact Info) Description 10/25/2024 10:54 PM EDT Anesthesia Event [facility] PERIOP [address] [place] [address] Eber Quinones MD [address] [place] [address] Maureen Fleming MD [address] [place] [address] Anesthesia Record Procedure Summary Procedure Name Responsible [...] sodium chloride 0.9% 1 00 mL IVPB (Darf4Cqx) 4 g cefTRIAXone (ROCEPHIN) 2 g in sodium chl oride 0.9 % 100 mL Qsij1Nvh 8 g fluconazole (DIFLUCAN) 200 mg in [...] ioban, dsd; 10/27/24; 0600 10/25/24 212 by Mak Maher RN 10/27/24 06 by Shanel Shen [...] Sounds Confirmed 10/26/24 0622 by Martha Phillip, RN [facility]ILY [facility]ACT[facility] 10/27/24 1310 by Chinedu Almeida, RONALDO documented [...] the past 12 months has th e [employer], oil, or water [employer] threatened to shut off services in your [...] time in the past [facility], were you homeless or living [...] Blake MD - 10/25/2024 7:26 PM EDT [facility] DEPARTMENT OF ANESTHESIOLOGY PRE-PROCEDURAL EVALUATION Julien [...] dysrhythmias, angina, orthopnea. ECG reviewed. ROS comment: [facility] 10/14/24: IMPRESSIONS: - Patent coronary arteries [...] is no recent study available for direct tzhc-gp-lqxb comparison. Stress echo 10/09/24: - Left ventricle: [...] at baseline or with provocation, shows no jpmlq-ky-zkbr atrial level shunt. - Pulmonary arteries: Systolic [...] CATH LABS; Service:Cath; Laterality: N/A; Family History No family history [...] No Physical Activity: Unknown (07/14/2024) Received from [facility] Exercise Vital Sign Days of Exercise per Week: Patient unable to answer Minutes of Exercise per Session: Not on file Stress: Patient Unable To Answer (07/14/2024) Received from [facility] [place] of Occupational Health - Occupational Stress Questionnaire Feeling of Stress : Patient unable to answer Social Connections: Patient Unable To Answer (07/14/2024) Received from [facility] Social Connection and Isolation Panel [NHANES] [...] times a day. naloxone (NARCAN) 4 mg/actuation [place] Apply 1 spray in one nostril if [...] MD - 10/25/2024 11:54 PM EDTAssociated Order(s): [facility] Emily Cath [facility] Cath Date/Time: 10/25/2024 11:13 PM Performed [...] procedure performed. Ben Blake MD Attending Anesthesiologist [facility] * Jimmy Gonzalez MD - 10/25/2024 [...] procedure performed. Ben Blake MD Attending Anesthesiologist [facility] documented in this encounter Plan of [...] EDT Ben Blake MD 10/26/2024 7:45 PM [facility] Cath Date/Time: 10/25/2024 11:13 PM Performed [...] 51 Pulmonary capillary wedge pressure (mmHg): 13 us Ben Blake MD IV THERAPY ORDERABLES Final [...] Secured with tape and sutured CMS: Normal us Ben Blake MD IV THERAPY ORDERABLES Final R esult documented in this encounter Visit Diagnoses * Transfer of Care - Maureen Fleming [...] 100% Complications: No notable events documented. Date 10/25/24699 - 10/26/2459 10/26/24699 - 10/27/24 0659 Shift [id number] 8178-5435 9162-5799 24 Hour Total 8647-8370 2943-2520 2526-9925 24 Hour Total INTAKE I.V. 9100(74.3) 9100(74.3) [...] in sodium chloride 0.9 % 100 mL Rzsn2Off) 100 100 Volume (mL) (AMPicillin 2 g in sodium chloride 0.9% 100 mL IVPB (Mrqx5Pvg)) 200 200 Volume (mL) (albumin human bottle 5%) 1000 1000 Volume (mL) (potassium chloride (KCl)/Sterile water 100 mL 10 mEq/100 mL IVPB) 200 200 Shift Total(mL/kg) 67241(151.9) 98104(151.9) OUTPUT Urine 150(0.2) 1375 1525 Urine 150 [...] in sodium chloride 0.9% 100 mL IVPB (Zhvt3Wie) 2 g, Intravenous, at 200 mL/hr, Every 6 hours, First dose on 10/26/24 at 0000, Use Gztk2Iqi Adapter - Mix Thoroughly Before Administration Bolus [...] in sodium chloride 0.9 % 100 mL Arpp3Etz 2 g, Intravenous, Administer over 30 Minutes, Once, Use Igjw2Mzd Adapter - Mix Thoroughly Before Administration, Indication? [...] on 10/25/24 at 2330, Anesthesia Intra-op New Bag 10/25/2024 11:30 PM EDT 50 mL/hr succinylcholine (QUELICIN) injection Intravenous, PRN - One Step Medication Only, Starting on 10/25/24 at 2301, Anesthesia Intra-op Given 10/25/2024 11:01 PM EDT 140 mg Transfuse Cryoprecipitate Routine New Bag 10/26/2024 4:37 AM EDT Transfuse Cryoprecipitate [...] documented as of this encounter Care Teams Jail Guard Relationship Specialty Start Date End Date Enedina Mcguire NP [address] [place] [id number] PCP - General Internal Medicine 10/05/24 documented as of this encounter
--- OUTSIDE RECORDS SUMMARY | 2024-10-27 02:00 | XMS_ITS | Encounter Summary ---
Author Organization [facility] Address [address] [place] [address] Care Team Providers Care Ferry Captain Name Role Phone Enedina Mcguire NP Primary Care Provider [phone] Source Comments This information has been disclosed [...] release of HIV test results or diagnoses. [id number] Reason for Visit * Auth/Cert (Routine) Specialty Diagnoses / Procedures Referred By Shane hernadez Referred To Contact Surgical Intensive Care Diagnoses Liver transplant recipient (CMS-HCC) cirrhosis and CKD Procedures LIVER-KIDNEY TRANSPLANT [facility] SICU [address] [place] [address] Phone: tel: Referral ID Status Reason Start Date Expiration Date Visits Re quested Visits Authorized [id number] 1 1 Encounter Details Date Type Department Care Team (Late st Contact Info) Description 10/27/2024 2:00 AM EDT - 10/27/2024 6:54 AM EDT Surgery [facility] PERIOP [address] [place] [address] Semaj Mcnair III, MD [address] [facility] [address] [place] [address] Donor Kidney Transplant , Back [...] In the past 12 months has [employer], oil, or water [employer] threatened to shut off services in your [...] Plata MD - 11/02/2024 2:04 PM EDT [facility] Liver Transplant Surgical Service Inpatient Discharge Summary Patient: Blair Gilbert : 1985 [facility]: [id number] Date of Admission: 10/25/2024 Date of Discharge: [...] Case IDs Date Procedure Surgeon Location Status [id number] 10/25/24 LIVER TRANSPLANT Semaj Mcnair III, MD OR Comp [id number] 10/27/24 Donor Kidney Transplant , Back Bench [...] EXAM: US ABDOMEN LIMITED EXAM: US DUPLEX YJN-KIZWAK-ZNDUPSP COMPLETE INDICATION: Post-op liver transplant COMPARISON: None [...] visualized secondary to poor acoustic windows. The [place] right kidney measures 11.6 cm in length. [...] 30 tablet Refills: 0 naloxone 4 mg/actuation [facility] Commonly known as: NARCAN Apply 1 spray [...] Your Medications These medications were sent to [facility] NAA Baum [address] Mya [address] [place] [address] mycophenolate 250 mg capsule tacrolimus 1 MG capsule These medications were sent to [facility] [address] [place] [id number] Hours: Sunday - Sunday: 8:00AM - 6:00PM [...] Case IDs Date Procedure Surgeon Location Status [id number] 10/25/24 LIVER TRANSPLANT Semaj Mcnair III, MD OR Comp [id number] 10/27/24 Donor Kidney Transplant , Back Bench [...] discharge. NEURO/PAIN - Patient placed on Dilaudid COOLER MAN once extubated, then transitioned to multi-modal pain [...] Valcyte for ID prophylaxis. CMV status was D-/R+ (donor/recipient). IMMUNOSUPPRESSION - Immunosuppression was standard. Patient [...] Ureteral stentis scheduled for removal on 11/25 [facility] - PT/OT evaluated patient and recommended Home PT/OT, outpatient PT/OT only available. ENDO - A1C is 5.0. Pt was not on diabetic regimen prior to arrival. Patient developed steroid-induced hyperglycemia 2/2 steroid regimen. Discharged home on the following regimen: HDSSI. Patient met w/ personal development educator prior to discharge. HEME - Post-operatively, [...] Patient and family received post-transplant education from federal aid coordinator as well as medication teaching from [...] HOX HOX 11/25/2024 9:00 AM NAA Merida [facility] 12/02/2024 2:00 PM Bossman Huffman MD [facility] MARIANGEL [facility] 02/25/2025 10:50 AM Bruno Gonzalez MD KTSP HOX HOX Kenyetta Hartman, MS-4 [facility] SHAY [...] kept under 2 gm/day. Please discuss withyour laboratory operations coordinator if you have any question about appropriate dose to take. Other Instructions: Call post-liver transplant clinic with questions [phone] or call [facility] at [phone] and ask for the liver federal aid coordinator fabrication welder if you experience any of the following: [...] HOX HOX 11/04/2024 10:10 AM [facility] LTRA HOX HOX 11/25/2024 9:00 AM NAA Merida [facility] 12/02/2024 2:00 PM Bossman [...] AM EDT 10/17/2024 naloxone (NARCAN) 4 mg/actuation [facility] Apply 1 spray in one nostril if [...] 48 tablet 11/02/2024 10:20 AM EDT 11/02/2024 07/15/202 5 blood sugar diagnostic (GLUCOSE BLOOD) [facility] Use to test blood sugar up to 4 times a day. 100 strip 11 11/02/2024 10:20 AM EDT 10/27/2024 5 blood-glucose meter (TRUE METRIX GLUCOSE METER) [facility] Use to test blood sugar up to [...] EDT 10/27/2024 5 lancets (ACCU-CHEK SOFTCLIX LANCETS) [facility] Use to test blood sugar up to [...] tacrolimus and mycophenolate which were dispensed through [facility] per insurance requirements. [...] fair Expected caregiver involvement?: is primary med education program manager Need for additional education in clinic?: routine reinforcement only Future medications to be obtained from, if known (select one): Tac/MMF to be filled from [facility] Financial concerns [...] Disp-30 tablet, R-0 naloxone (NARCAN) 4 mg/actuation [facility] Apply 1 spray in one nostril if [...] Solid Organ Transplant Clinical Specialist Contact via [facility] Secure Chat * Froylan Hendrickson MD - 11/01/2024 8:04 AM EDT Liver Transplant Surgery Progress Note Name: Blair Gilbert CSN: [id number] Date: 11/01/2024 8:06 AM OR Date: 10/25/2024 [...] at 10/31/2024 4:38 PM EDT US Duplex Sev-Wci-Rvyznaz Comp Result Date: 10/31/2024 IMPRESSION: RIGHT UPPER [...] 3:24 PM EDT TXP - Follow Up [facility] Medical Nutrition Therapy Transplant Brief Note Diet Order/Nutrition Support: Diet/Nutrition Orders Diet Regular(7) high calorie 3000 kcal a day Frequency: Effective Now Number of Occurrences: Until Specified Order Questions: Additional restrictions: high calorie 3000 kcal a day Suicide/Behavior Risk Modification? No Dietary nutrition supplements Frequency: TID Number of Occurrences: Until Specified Order Questions: Select Supplement: Boost VHC- very high calorie protein supplement ([facility] only) Pertinent Information: Pt seen for [...] Based on DBW of 93.1 kg Kcals/day: 3191-7383 (25-30 kcals/kg) Protein g/day: 140-190 (1.5-2.0 g/kg) [...] Dietitian - Solid Organ Transplant Contact via [facility] Chat * Keon Dobson - 10/31/2024 2:35 PM EDT [facility] Spiritual Care Volunteer Visit PATIENT NAME: Blair Gilbert ROOM:8025/U80 Baptism Affiliation:Rastafari Blair Gilbert was visited by a volunteer today. No needs requiring a visit from a staff bait man were expressed at that time. Care Provided: Communion, Prayer/ blessing Please page our service at [phone] as needs arise for patient and/or family. Fr Dean Dobson Rastafari bait man Spiritual Care Dept * Brittany Horne PT [...] Sanchez MD Admission Diagnosis: Liver transplant recipient ([facility]-H[facility]) [Z94.4] Date: 10/31/2024 Room: [facility] Reviewed Pertinent hospital course: Yes Hospital [...] issued by OT: Long-handled sponge, Sock aid, Cosmetic Counselor, Other (comment) Equipment issued by OT comment: leg community mental health worker Assessment Assessment: Decreased ADL status, Decreased [...] IADL task (Goal met and continued 10/31) Scruff Worker Goal : Pt will complete bathing assessment and transfer predatory animal exterminator goal to be met in: 2 [...] injury superimposed on CKD ([facility]) Alcohol use disorder Metabolic encephalopathy Hypertension Other hyperlipidemia Thrombocytopenia ([facility]-HCC) Renal mass, left Abdominal pain Hypokalemia CKD (chronic kidney disease) stage 4, GFR 15-29 ml/min ([facility]) Metabolic acidosis with normal anion gap and bicarbonate losses GERD (gastroesophageal reflux disease) Hypothyroidism Itching Anemia BRBPR (bright red blood per rectum) SBP (spontaneous bacterial peritonitis) ([facility]) C Diff Diarrhea C. [...] 0659 10/31/24 07 - 11/01/24 0659 Shift 5502-5045 8477-9286 1044-5726 24 Hour Total 7558-1708 7671-3335 2944-8831 24 Hour Total INTAKE P.O. 240 240 P.O. 240 240 Shift Total(mL/kg) 240(1.9) 240(1.9) OUTPUT Urine(mL/kg/hr) 1850(1.8) 600(0.6) 600(0.6) 3050(1) 350 350 Urine 800 812 945 4426 350 350 Urine Occurrence 2 x 2 [...] with further concerns Lavell Kramer MD 10/31/[phone] * Priti Geiger CNP - 10/31/2024 10:06 AM EDT Liver Transplant Surgery Progress Note Name: Blair Gilbert CSN: [id number] Date: 10/31/2024 10:06 AM OR Date: 10/25/2024 [...] 10/28/24 1109 LACTATE 0.3* Imaging US Duplex Svk-Qdt-Fgohfli Comp Result Date: 10/28/2024 IMPRESSION: ABDOMINAL ULTRASOUND [...] MD at 10/28/2024 4:42 PM EDT Assessment: Balir Gilbert is a 39 y.o. male with [...] Transplant Nephrology Progress Note Patient: Blair Gilbert [id number] 8025/[id number] Date of Admit: 10/25/2024. 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 Lauren Santos, SAMSON, BUSINESS DEVELOPMENT EXECUTIVE, FOREIGN BANKNOTE TELLER- Transplant Nephrology [phone] Preferred contact: secure chat The HPI, ROS, [...] 10/29/24699 - 10/30/2465810/30/24699 - 10/31/24 0659 Shift 0037-8712 6095-1124 7357-0987 24 Hour Total 2061-7228 1163-4685 3522-7448 24 Hour Total INTAKE P.O. 240 240 480 P.O. 240 240 480 IV Piggyback 87.2 87.2 Volume (mL) (micafungin (MYCAMINE) 50 mg in sodium chloride 0.9 % 100 mL Cwwf0Yhz IVPB) 87.2 87.2 Shift Total(mL/kg) 240(2) 327.2(2.7) 567.2(4.4) OUTPUT Urine(mL/kg/hr) 600(0.6) 1175(1.2) 450(0.4) 2225(0.7) 550 550 Output (mL) (IUC (Berkowitz) Triple-lumen (3-Way) 18 Fr.) 600 5093 837 9832 550 550 Drains 175 245 100 520 [...] month of prophylaxis Lavell Kramer MD 10/30/[phone] * Priti Geiger CNP - 10/30/2024 10:36 AM EDT Liver Transplant Surgery Progress Note Name: Blair Gilbert CSN: [id number] Date: 10/30/2024 10:37 AM OR Date: 10/25/2024 [...] 1109 LACTATE 0.5 0.3* Imaging US Duplex Thx-Nmz-Ipwlgmx Comp Result Date: 10/28/2024 IMPRESSION: ABDOMINAL ULTRASOUND [...] Transplant Nephrology Progress Note Patient: Blair Gilbert [id number] 8025/U8025 Date of Admit: 10/25/2024. 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 Lauren Santos, SAMSON, BUSINESS DEVELOPMENT EXECUTIVE, FOREIGN BANKNOTE TELLER- Transplant Nephrology [phone] Preferred contact: secure chat The HPI, ROS, [...] Aaron Gonzalez MD, MEd, FASN * Ben Weiss RD - 10/29/2024 3:36 PM EDT TXP - Follow Up [facility] Medical Nutrition Therapy Follow-Up Diet Order/Nutrition [...] I/O: +23.3L net volume. 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 Admit Weight: 270 lb (122.5 kg) Current [...] BP: (113-156)/(56-81) 156/74 Skin Integrity: Abdominal incision Uysuf Scale Score: 17 Edema: Generalized Edema: Moderate [...] Based on DBW of 93.1 kg Kcals/day: 0287-1185 (25-30 kcals/kg) Protein g/day: 140-190 (1.5-2.0 g/kg) [...] Dietitian - Solid Organ Transplant Contact via [facility] Chat * Anita Crystal, PT - 10/29/2024 2:04 PM EDT Physical Therapy Initial Assessment Name: Blair Gilbert : 1985 Attending Physician: Semaj Mcnair III, MD Admission Diagnosis: Liver transplant recipient (CMS-HCC) [Z94.4] Date: 10/29/2024 Room: [place] [address] [address] Reviewed Pertinent hospital course: Yes Hospital Course [...] with functional mobility at: 4/10 or less Scruff Worker Goal : Pt will ambulate 250' [...] (CMS-HCC) Acute kidney injury superimposed on CKD ([facility] [...] (CMS-HCC) [Z94.4] Date: 10/29/2024 Room: [place] [address] [address] Reviewed Pertinent hospital course: Yes Hospital Course [...] Intervention(s): Ambulation/increased activity;Repositioned Therapist reported pain to: certified professional ergonomist Oxygen Supplemental Oxygen Supplemental Oxygen: None (Room [...] distance ambulation in prep for IADL task Scruff Worker Goal : Pt will complete bathing assessment and transfer predatory animal exterminator goal to be met in: 2 [...] List Diagnosis Decompensated cirrhosis ([facility]) Acute kidney injury superimposed on CKD ([facility]) Alcohol use disorder Metabolic encephalopathy Hypertension Other hyperlipidemia Thrombocytopenia ([facility]) Renal mass, left Abdominal pain Hypokalemia CKD (chronic kidney disease) stage 4, GFR 15-29 ml/min ([facility]) Metabolic acidosis with normal anion gap and bicarbonate losses GERD (gastroesophageal reflux disease) Hypothyroidism Itching Anemia BRBPR (bright red blood per rectum) SBP (spontaneous bacterial peritonitis) ([facility]) C Diff Diarrhea C. difficile diarrhea Neck pain with history of cervical spinal surgery * Caron Santos CNP - 10/29/2024 10:30 AM EDT Images from the original note were not included. Transplant Nephrology Progress Note Patient: Blair Gilbert [id number] SICU-28/USIC-28 Date of Admit: 10/25/2024. 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 Lauren Santos, SAMSON, BUSINESS DEVELOPMENT EXECUTIVE, FOREIGN BANKNOTE TELLER- Transplant Nephrology [phone] Preferred contact: secure chat The HPI, ROS, [...] EDT Pt seen, examined, and discussed with CLINICAL ASSOC on 10/29/2024. reviewed the chart including the labs and imaging studies. My additional comments below. 39 y.o. 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 Report Verified by: Alberot Rodriguez MD at 10/27/2024 10:38 AM EDT US Duplex Qgz-Gzm-Mafycly Comp Result Date: 10/27/2024 IMPRESSION: RIGHT UPPER [...] SQH, SCDs DISPO: floor KENYETTA DEVAN, MS4 [facility] General Surgery 10:08 AM 10/29/2024 Cosigned [...] 0659 10/29/24 07 - 10/30/24 0659 Shift 3897-1937 7539-0284 5133-7795 24 Hour Total 2815-3853 1890-9377 5822-1079 24 Hour Total INTAKE P.O. 240 0 [...] IV infusion) 253.9 374.7 775.6 1404.2 Blood 8243 968 2538 Albumin 750 750 Volume (Transfuse RBC Transfusion Rate: Per dept routine) 310 310 Volume (Transfuse RBC Transfusion Rate: Per dept routine) 271 271 IV Piggyback 918.4 300 02 0910.4 Volume (mL) (micafungin (MYCAMINE) 50 mg in sodium chloride 0.9 % 100 mL Ubfn4Tak IVPB) 99.9 99.9 Volume (mL) (albumin human [...] month of prophylaxis Lavell Kramer MD 10/29/[phone] * John Moreno MD - 10/29/2024 6:47 AM EDT SURGICAL ICU PROGRESS NOTE 10/29/2024 6:47 AM Name: Blair Gilbert CSN: [id number] HPI: Blair Gilbert is a 39 y.o. [...] day. blood-glucose meter (TRUE METRIX GLUCOSE METER) [facility] Use to test blood sugar up to 4 times a day. DEXCOM G7 SURGERY SCHEDULER Misc Use reader as directed. DEXCOM G7 [...] and at bedtime. lancets (ACCU-CHEK SOFTCLIX LANCETS) [facility] Use to test blood sugar up to 4 times a day. methocarbamoL (ROBAXIN) 500 MG tablet Take 1 tablet (500 mg total) by mouth 3 times a day. naloxone (NARCAN) 4 mg/actuation [facility] Apply 1 spray in one nostril if [...] 37 37 35 PO2ART 245* 182* 92 VME6FEG 22 21* 21* BEART -4.2* -4.8* -4.6* [...] at baseline or with provocation, shows no lwwqh-ei-epwt atrial level shunt. - Pulmonary arteries: Systolic [...] Home pantoprazole 40mg daily, continue Last BM: PRINT CUTTER - suppository today Bowel regimen: Miralax today, [...] results for input(s): TEGANGLE , TEGKTIME , GMFLRTVB26 , TEGMAXAMPL , TEGRTIME , CBMZ in [...] in sodium chloride 0.9 % 100 mL Zoba8Wqg IVPB 50 mg Every 24 hours 10/27/2024 -- Admin Instructions: PROTECT FROM LIGHT FLUSH LINE w/NSS PRIOR TO ADMINISTRATION Use Hpmb9Ihe Adapter - Mix Thoroughly Before Administration Route: [...] Intravenous BID pantoprazole 40 mg Oral DAILY 06 tacrolimus 2 mg Oral BID Continuous Infusions: HYDROmorphone 6 mg/30 mL COOLER MAN norepinephrine 4 mcg/min (10/27/24 2318) sodium chloride [...] 10/27/24699 - 10/28/2465810/28/24699 - 10/29/24 0659 Shift 4723-0961 7760-2431 1128-5432 24 Hour Total 3907-0712 3667-9356 6475-0152 24 Hour Total INTAKE P.O. 0 120 [...] in sodium chloride 0.9 % 100 mL Imhm7Mmv IVPB) 100 100 Volume (mL) (albumin human 5%) 126 126 Volume (mL) (potassium chloride (KCl)/Sterile water 50 mL 20 mEq/50 mL IVPB 20 mEq) 100 100 Volume (mL) (AMPicillin 1 g in sodium chloride 0.9% 100 mL IVPB (Uaue3Dpy)) 100.1 57 42.9 200 Volume (mL) (mycophenolate (CELLCEPT) 500 mg in dextrose 5% in water (D5W) 50 mL IVPB) 50 5.3 55.3 Shift Total(mL/kg) 2079.3(17) 1161(9.5) 787.3(6.4) 4027.6(32.9) OUTPUT Urine(mL/kg/hr) 2195(2.2) 1000(1) 900(0.9) 4095(1.4) 490 490 Urine 360 360 Output (mL) (IUC (Berkowitz) Triple-lumen (3-Way) 18 Fr.) 1835 3756 231 5528 490 490 Emesis/NG output 50 50 Drainage [...] month of prophylaxis Lavell Kramer MD 10/28/[phone] * Caron Santos CNP - 10/28/2024 9:00 AM EDT Images from the original note were not included. Transplant Nephrology Progress Note Patient: Blair Gilbert [id number] SICU-28/USIC-28 Date of Admit: 10/25/2024. 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 Lauren Santos, SAMSON, BUSINESS DEVELOPMENT EXECUTIVE, FOREIGN BANKNOTE TELLER- Transplant Nephrology [phone] Preferred contact: secure chat The HPI, ROS, [...] EDT Pt seen, examined, and discussed with CLINICAL ASSOC on 10/28/2024. reviewed the chart including the labs and imaging studies. My additional comments below. 39 y.o. 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 S/p SLK 10/25-10/26 Has great UOP 4.2L Aaron Gonzalez MD, MEd, FASN * Shay Plata MD - 10/28/2024 7:41 AM EDT Liver Transplant Surgery Progress Note Name: Blair Gilbert CSN: [id number] Date: 10/28/2024 11:05 AM OR Date: 10/25/2024 - 10/27/2024 Subjective: 1 Day Post-Op Received one unit pRBCs overnight On low dose levo this morning Increasing tachycardia Reports worsening pain, on COOLER MAN Tolerated sips of clears No nausea/vomiting, no [...] Oral BID Continuous: HYDROmorphone 6 mg/30 mL COOLER MAN norepinephrine Stopped (10/28/24 0637) sodium chloride 0.9 [...] at 10/27/2024 10:38 AM EDT US Duplex Yzm-Lms-Vxipyel Comp Result Date: 10/27/2024 IMPRESSION: RIGHT UPPER [...] [Z94.4] Neuro: - Multimodal pain control: dilaudid COOLER MAN, tylenol, robaxin. PRN dilaudid for breakthrough CV: [...] SCDs DISPO: SICU SHAY PLATA MD, MS4 [facility] Surgery 11:05 AM 10/28/2024 Cosigned [...] 10/28/2024 6:17 AM Name: Blair Gilbert CSN: [id number] HPI: Blair Gilbert is a 39 y.o. [...] TRANSPLANT; Surgeon: Semaj Mcnair III, MD; Location: [facility]; Service: Transplant; Laterality: N/A; Home [...] to 4 times a day. DEXCOM G7 SURGERY SCHEDULER Misc Use reader as directed. DEXCOM G7 [...] times a day. naloxone (NARCAN) 4 mg/actuation [facility] Apply 1 spray in one nostril if [...] Oral BID Continuous: HYDROmorphone 6 mg/30 mL COOLER MAN insulin regular in 0.9 % sodium chloride [...] 37 37 35 PO2ART 245* 182* 92 YWN0MDD 22 21* 21* BEART -4.2* -4.8* -4.6* [...] at baseline or with provocation, shows no warmk-ld-gtgc atrial level shunt. - Pulmonary arteries: Systolic [...] while intubated,convert to PO today Last BM: PRINT CUTTER Bowel regimen: Miralax today, hold senna til [...] ml IV Fluids: HYDROmorphone 6 mg/30 mL COOLER MAN insulin regular in 0.9 % sodium chloride, [...] results for input(s): TEGANGLE , TEGKTIME , NGVCWAHX25 , TEGMAXAMPL , TEGRTIME , CBMZ in [...] in sodium chloride 0.9% 100 mL IVPB (Itds4Zpn) (Completed) 1 g Every 6 hours scheduled 10/26/2024 10/28/2024 Admin Instructions: Dosage may need to be adjusted for renal dysfunction. Full dose is 1g IV q6h Use Rxkg7Xwr Adapter - Mix Thoroughly Before Administration Notes [...] in sodium chloride 0.9 % 100 mL Mrfl8Anv IVPB 50 mg Every 24 hours 10/27/2024 -- Admin Instructions: PROTECT FROM LIGHT FLUSH LINE w/NSS PRIOR TO ADMINISTRATION Use Bwxp2Bdh Adapter - Mix Thoroughly Before Administration Route: [...] R IJ Mac Arterial Line? R radial [place] Urinary Catheter? Berkowitz - Reason: Adequate I/O [...] the Caprini Risk Score of 10 and [facility] transplant protocol, I recommend discharging [...] Solid Organ Transplant Clinical Specialist Contact via [facility] Secure Chat Preferred O. [phone] * Chinedu Almeida, [employer] PRODUCER - 10/27/2024 1:10 PM EDT Patient extubated [...] Yes MD Order No SBT No Yes [place] Coma Scale > 8 Yes Lab Results Component Value Date PHART 7.36 10/27/2024 PCO2 37 10/27/2024 PO2ART 245 (H) 10/27/2024 BXA4FXV 22 10/27/2024 BEART -4.2 (L) 10/27/2024 FMF4XLQ 96.5 10/27/2024 W1BSYURK 100 10/27/2024 Based on this SBT assessment [...] Surgery Progress Note Name: Blair Gilbert CSN: [id number] Date: 10/27/2024 11:40 AM OR Date: 10/25/2024 - 10/27/2024 Subjective: * Day of Surgery * Remains intubated in SICU Sedated but appropriately nods to questions No acute distress Objective: BP 100/48 Pulse 89 Temp 99 ??F (37.2 ??C) (Childs) Resp 9 Ht 6' 4 (1.93 m) [...] at 10/27/2024 10:38 AM EDT US Duplex Hnc-Duf-Hggcwzu Comp Result Date: 10/27/2024 IMPRESSION: RIGHT UPPER [...] SQH, SCDs DISPO: SICU KENYETTA HARTMAN, MS4 [facility] General Surgery 11:40 AM 10/27/2024 [1] [...] SBP (spontaneous bacterial peritonitis) ([facility]) C Diff Diarrhea C. [...] NOTE 10/27/2024 7:16 AM Name: Blair Gilbert [facility]: [id number] HPI: Blair Gilbert is a 39 y.o. [...] times a day. naloxone (NARCAN) 4 mg/actuation [facility] Apply 1 spray in one nostril if [...] pH: (!) 7.32 (10/27/24 0013) PCO2: 37 (10/27/243) PO2: (!) 137 (10/27/2412) HCO3: (!) 20 (10/27/2412) Base Excess: (!) -6.4 (10/27/2412) SaO2: 100 (10/27/2412) Recent Labs 10/26/24 0610 10/26/24 1048 10/27/24 0013 PHART 7.27* 7.37 7.32* PCO2 47* 36 37 PO2ART 127* 91 137* FRL9SPU 21* 22 20* BEART -5.4* -3.9* -6.4* [...] at baseline or with provocation, shows no avlkx-tn-eeid atrial level shunt. - Pulmonary arteries: Systolic [...] IV pantoprazole while intubated, NPO Last BM: PRINT CUTTER Bowel regimen: Senna/Miralax when able Nausea: Zofran PRN FLUID/ELECTROLYTES Recent Labs 10/26/24 1048 10/26/24164110/27/24 0013 NA 139 142 141 K 2.9* 3.3* 3.2* CL 107 109 109 CO2 22 23 21 BUN 61* 63* 64* CREATININE 2.78* 2.85* 2.58* CALCIUM 8.8 8.9 8.9 MG 2.0 2.0 1.8 PHOS 4.1 4.4 5.3* GLUCOSE 253* 127* 126* Intake/Output Summary (Last 24 hours) at 10/27/2024 0716 Last data filed at 10/27/2024 0715 Gross per 24 hour Intake 39875.82 ml Output 7060 ml Net 6224.82 ml [...] results for input(s): TEGANGLE , TEGKTIME , AKSMPUHT41 , TEGMAXAMPL , TEGRTIME , CBMZ in [...] in sodium chloride 0.9% 100 mL IVPB (Iuhd0Zqx) 1 g Every 6 hours scheduled / Admin Instructions: Dosage may need to be adjusted for renal dysfunction. Full dose is 1g IV q6h Use Bqqc6Ijd Adapter - Mix Thoroughly Before Administration Notes to Pharmacy: On sales order clerk estimated creatinine clearance is 35.9 mL/min (A) (based on SCr of 3.87 mg/dL (H)). 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 naloxone (NARCAN) 4 mg/actuation [place] [facility] Apply 1 spray in one nostril if [...] Resource Strain: Low Risk (07/09/2024) Received from [facility] Overall Financial Resource Strain (CARDIA) [...] Received from [facility] [place] of Occupational Health - Occupational Stress Questionnaire Feeling of Stress : Patient unable to answer Social Connections: Patient Unable To Answer (07/14/2024) Received from [facility] Social Connection and Isolation Panel [NHANES] Frequency of Communication with Friends and Family: Patient unable to answer Frequency of Social Gatherings with Friends and Family: Patient unable to answer Attends Baptism Services: Patient unable to answer Active Member [...] admitted to SICU post-op. LEANDRA OG MD [facility] General Surgery Liver Transplant Pager: [phone] 8:24 PM 10/25/2024 Cosigned by Semaj [...] prior to txp or intra-op CRRT --- Kady. Vinita Mncair III, MD Transplant Surgery (cell) documented in this encounter Procedure Notes * Flaquito Ba MD - 10/27/2024 6:29 AM EDT Patient Name: Blair Gilbert Date: 1985 Billing #: [id number] Date of Procedure: 10/25/2024 Diagnosis: End Stage Renal Disease Procedure: 1. Donor Kidney Transplant 2. Back Bench Preparation Donor Kidney 3. Baseline Kidney transplant biopsy 4. Insertion of Indwelling Stent 5. Removal of Perihepatic packing Surgeons * Flaquito Ba MD Sales Contractor MD Shayan Findings: Low Hockey stick incision [...] donor was ABO O and UNOS ID [id number], Match [place] [id number] (SLK). This donor was a Donor after [...] was then wanded with the lap detection research study assistant. The incision was ex tented 2 [...] and closure. Flaquito Ba MD Transplant Surgeon grounds/maintenance specialist * Flaquito Ba MD - 10/27/2024 6:15 AM EDT TRANSPLANT KIDNEY with bile duct reconstruction Brief Op Note Blair Gilbert 10/27/2024 Pre-op Diagnosis: Acute kidney injury superimposed on CKD (CMS-HCC) [N17.9, N18.9] Post-op Diagnosis: same Procedure(s): TRANSPLANT KIDNEY Surgeon(s): MD Semaj Washington III, MD Anesthesia: General Endotracheal Staff: Research Program Manager: Chinedu Quinn RN Scrub Person: ST Angela Fellow: Kemar Sahni MD 2nd Research Program Manager: Marty Clark RN 3rd Research Program Manager: Candis Mcdaniel RN FINDINGS Berkowitz 3 day Drains: Intraabdominal (perihepatic) UNOS ID [id number], Match [place] [id number] Kid WIT 27 min Kid CIT 33 [...] (Berkowitz) Triple-lumen (3-Way) 18 Fr. (Active) Status [place] Drainage 10/26/241999 Collection Container Standard drainage bag [...] Washington III, MD Anesthesia: General Endotracheal Staff: Research Program Manager: Chinedu Quinn RN Relief Research Program Manager: Michela Amos RN Relief Scrub: Stephani Blake RN Scrub Person: ST Angela Fellow: Kemar Sahni MD 2nd Research Program Manager: Marty Clark RN 3rd Research Program Manager: Candis Mcdaniel RN Estimated Blood Loss: [...] (Berkowitz) Triple-lumen (3-Way) 18 Fr. (Active) Status [place] Drainage 10/26/241999 Collection Container Standard drainage bag [...] day Drains: 2 Intraabdominal (perihepatic) UNOS ID [id number], Match Run [id number] Donor: young DCD NRP Kid WIT 27 [...] BLAIR GILBERT DATE OF : 1985 CSN: [id number] PHYSICIAN: Semaj Mcnair III, MD ADMIT DATE: 10/25/2024 DICTATED BY: Semaj Mcnair III, MD SURGERY DATE: 10/27/2024 OPERATIVE REPORT SURGEON: Semaj Mcnair III, MD ICT HELP DESK OFFICER SURGEON: Kemar Sahni MD. PREOPERATIVE DIAGNOSIS: Open [...] were made hemostatic with the argon beam director of scout work. We assessed the flows of the portal [...] a mucocele formation. We then performed a fdfm-rd-tjnq choledochocholedochostomy in an end to end fashion [...] small umbilicalhernia that was closed with a okgkvm-xy-vervd 0 PDS suture. At this point, we [...] complications. SEMAJ MCNAIR III, MD RCQ/AQ JOB#: [id number] * Semaj Mcnair III, MD - 10/26/2024 7:00 AM EDT Patient Name: Blair Gilbert Date: 1985 Billing #: [id number] Date of Procedure: 10/25/2024 - 10/26/2024 Diagnosis: Chronic Hepatic Failure without coma Procedure: 1. Orthotopic Liver Transplant 2. Back Bench Preparation Donor Liver 3. Temporary portocaval shunt 4. Perihepatic packing for control of hemorrhage 5. Placement of external choledochal stent 6. Temporary abdominal closure Attending surgeons: Semaj Mcnair III, MD Sales Contractor Surgeon(s): Sveta Judge MD Findings: Whole organ placed in piggyback fashion with suprahepatic cava of donor to common orifice of all three hepatic veins for IVC anastomosis. Donor main portal vein to recipient main portal vein. Donor common hepatic artery to recipient right hepatic artery. Temporary abdominal with perihepatic packingfor control of hemorrhage. Externalization of bile duct with 8 Peruvian pediatric feeding tube. Portal Flow Modulation No [...] This donor was ABO O and UNOSID [id number], Match Run [id number]. This was a 42-year-old donation after circulatory [...] After completion of the outflow anastomosis, a Japanese clamp was placed across the donor suprahepatic [...] artery flows were then measured with the prettysecrets device. The portal flow was 3.4 L/min [...] do a temporary abdominal closure. An 8 Peruvian pediatric feeding tube was brought through the [...] Sveta Alves III, MD Anesthesia: General Staff: Research Program Manager: Mak Maher RN; Marty Clark RN Scrub Person: ST Angela Resident: Thuy Leon MD termite control representative: Jose Daniel Arana, THEATER COMPANY PRODUCER Estimated Blood Loss: 19 L Specimens: recipient [...] Number of days: 5 Surgery Information: -UNOS#: [id number] -ABO: O to O -Recipient: SLK candidate [...] 1:19 PM EDTAssociated Order(s): IP CONSULT TO STORAGE ENGINEER [facility] Transplant Discharge Education Note Assessment: Received [...] Gomez, MSN, RN, NPD- Diabetes Education Office [phone] Schedule: M-F 8:00am-4:30pm * Ben Weiss, DMITRY - 10/27/2024 4:06 PM EDTAssociated Order(s): IP CONSULT TO NUTRITION SERVICES; IP CONSULT TO NUTRITION SERVICES TXP - Initial [facility] Medical Nutrition Therapy Reason(s) for Completion: [...] I/O: +23.2L net volume. Last BM Date: (PRINT CUTTER). Admit Weight: 270 lb (122.5 kg) Current [...] Based on DBW of 93.1 kg Kcals/day: 6323-0744 (25-30 kcals/kg) Protein g/day: 140-190 (1.5-2.0 g/kg) [...] Dietitian - Solid Organ Transplant Contact via [employer] Chat * Lavell Kramer MD - 10/27/2024 11:09 AM EDTAssociated Order(s): INPATIENT CONSULT TO TRANSPLANT INFECTIOUS DISEASES Infectious Disease Consultation Patient: Blair Gilbert CSN: [id number] Assessment & Plan 39 y.o. M s/p [...] blood cx's if febrile Lavell Kramer MD [phone] Chief Complaint Long Qtc History of Present [...] Resource Strain: Low Risk (07/09/2024) Received from [facility] Overall Financial Resource Strain (CARDIA) [...] Received from [facility] [place] of Occupational Health - Occupational Stress Questionnaire Feeling of Stress : Patient unable to answer Social Connections: Patient Unable To Answer (07/14/2024) Received from [facility] Social Connection and Isolation Panel [NHANES] Frequency of Communication with Friends and Family: Patient unable to answer Frequency of Social Gatherings with Friends and Family: Patient unable to answer Attends Baptism Services: Patient unable to answer Active Member [...] pantoprazole (PROTONIX) IV 40 mg Intravenous DAILY 06 Continuous: fentanyl (SUBLIMAZE) IV infusion 150 mcg/hr [...] MD 10/27/2024, 10:56 AM * Caron Santos, CLINICAL ASSOC - 10/27/2024 11:00 AM EDTAssociated Order(s): IP CONSULT TO RENAL Images from the original note were not included. Department of Internal Medicine Transplant Nephrology Consult Note Patient: Blair Gilbert Date of Admit: 10/25/2024 Referring physician: Semaj Mcnair III, MD Chief Complaint Direct admission for SLK Reason for Consult Co-management of SLK recipient History of Present Illness lBair Gilbert is a 39 y.o. male with [...] TRANSPLANT; Surgeon: Semaj Mcnair III, MD; Location: [facility]; Service: Transplant; Laterality: N/A; History reviewed. No [...] to 4 times a day. DEXCOM G7 SURGERY SCHEDULER Misc Use reader as directed. DEXCOM G7 [...] times a day. naloxone (NARCAN) 4 mg/actuation [place] [facility] Apply 1 spray in one nostril if [...] is jaundiced. 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 No indications for [employer] PRODUCER. Good UOP - Noted KT US WNL [...] preliminary until attending attestation. Lauren Santos, SAMSON, BUSINESS DEVELOPMENT EXECUTIVE, FOREIGN BANKNOTE TELLER- Transplant Nephrology [phone] Preferred contact: secure chat [1] Allergies Allergen [...] Gonzalez MD, MEd, FASN * Marcellus Hebert, ORDER PICKER/ASSEMBLER, SENIOR REPORT DEVELOPER - 10/27/2024 10:21 AM EDT HEALTH Care Management/Social Work Assessment Patient Information Patient Name: Blair Gilbert Hospital Day: 2 Inpatient/Observation: Inpatient Admit Date: 10/25/2024 Admission Diagnosis: Liver transplant recipient (CMS-HCC) [Z94.4] Attending provider: Semaj Mcnair III, MD PCP: Enedina Mcguire NP Home Pharmacy: [facility] [address] [place] [id number] [facility] [address] [facility] [address] Issues related to obtaining medications: N/A Payor Information Medical Insurance Coverage: Payor: [facility] / Plan: [facility] GLOBAL [...] History: 12 weeks of CD Treatement at [facility] Do you need Substance Abuse [...] Was any abuse reported by patient?: No [place] Status & Connection to [facility] Services [place] Status & Connection to [place] Services Are you a ?: No Support [...] spouse at their one story home in [place]. 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 Patient's LNOK:Spouse, Abdiaziz Gilbert, Patient has no current or past history of suicidal/homicidal ideation. Patient has a history of mental health diagnoses, PTSD and Generalized Anxiety Disorder. Patient is connected with TransplantPsychiatrist and prescribed Prozac. Patient has a history of alcohol use and has completed 12 weeksof CD Treatment at [facility]. Spouse explained that he will complete [...] as appropriate. NUBIA Escalera LSW Phone Number: [phone] * John Moreno MD - 10/26/2024 3:41 AM EDT SURGICAL ICU CONSULT NOTE 10/26/2024 3:41 AM Name: Blair Gilbert CSN: [id number] HPI: Blair Gilbert is a 39 y.o. [...] at 9:00 PM naloxone (NARCAN) 4 mg/actuation [place] [facility] Apply 1 spray in one nostril if [...] % sodium chloride norepinephrine 18 mcg/min (10/26/24 1553) vasopressin 0.04 Units/min (10/26/24 0244) PRN Meds: [...] input(s): PHART , PCO2 , PO2ART , JET2VKH , BEART in the last 72 hours. [...] at baseline or with provocation, shows no khhna-yx-havw atrial level shunt. - Pulmonary arteries: Systolic [...] IV pantoprazole while intubated, NPO Last BM: PRINT CUTTER Bowel regimen: Senna/Miralax when able Nausea: Zofran PRN FLUID/ELECTROLYTES Recent Labs 10/25/242216 NA 137 K 2.1* CL 100 CO2 20* BUN 74* CREATININE 3.87* CALCIUM 9.3 PHOS 5.9* GLUCOSE 114* Intake/Output Summary (Last 24 hours) at 10/26/2024 0341 Last data filed at 10/26/2024 0326 Gross per 24 hour Intake 73734 ml Output 675 ml Net 29106 ml IV Fluids: EPINEPHrine (ADRENALIN) 10 mg [...] results for input(s): TEGANGLE , TEGKTIME , PHUNSLBI87 , TEGMAXAMPL , TEGRTIME , CBMZ in [...] in sodium chloride 0.9% 100 mL IVPB (Aspn1Woy) 2 g Every 6 hours 10/26/2024 -- Admin Instructions: Use Ltdz9Asu Adapter - Mix Thoroughly Before Administration Notes to Pharmacy: On sales order clerk estimated creatinine clearance is 35.9 mL/min (A) (based on SCr of 3.87 mg/dL (H)). Route: Intravenous AMPicillin 2 g in sodium chloride 0.9% 100 mL IVPB (Tafb9Gpt) 2 g Once 10/26/2024 -- Admin Instructions: Use Flmp7Nhz Adapter - Mix Thoroughly Before Administration Notes to Pharmacy: On sales order clerk estimated creatinine clearance is 35.9 mL/min (A) (based on SCr of 3.87 mg/dL (H)). Route: Intravenous cefTRIAXone (ROCEPHIN) 2 g in sodium chloride 0.9 % 100 mL Awdg1Fav (Completed) 2 g Once 10/25/2024 10/26/2024 Admin Instructions: Use Bxon8Mpr Adapter - Mix Thoroughly Before Administration Route: [...] 47 (H) 10/26/2024 PO2ART 127 (H) 10/26/2024 JVF3APN 21 (L) 10/26/2024 BEART -5.4 (L) 10/26/2024 HIO6FUL 94.6 (L) 10/26/2024 W4HEFICT 98 10/26/2024 P:F ratio = 363 CARDIOVASCULAR: [...] Acute Care Surgery, and Surgical Critical Care [facility] Academic Office [phone] For Transfers, call [phone] documented in this encounter Nursing Notes * [...] * Care Coordination - NUBIA Escalera, SENIOR REPORT DEVELOPER - 10/31/2024 11:34 AM EDT [facility] [...] disease. PCP: Enedina Mcguire NP Home Pharmacy: [facility] [address], [facility] [address] [address] [facility] [address] [facility] [address] [facility] [place] - NAA [place] - [address] [place] [address] [place] [id number] Medical Insurance Coverage: Payor: [employer] [facility] [facility] [...] that there were no accepting C agencies([facility], [facility], [facility]) and patient would need to outpatient for PT/OT and labs. Discharge Plan Anticipated discharge plan: Home with HHC vs Home with outpatient Anticipated discharge date: 11/01 CM/SW will continue to follow and remain available for discharge planning needs. NUBIA Escalera, RONALDO Cell [phone] * Plan of Care - Paulette Flannery [...] disease. PCP: Enedina Mcguire NP Home Pharmacy: [facility] [address] [address] [facility] [address] [facility] [address] [facility] NAA Baum - [address] [place] [id number] Medical Insurance Coverage: Payor: [employer] [facility] [facility] [...] SW submitted blanket HHC referral to [facility], [facility] [place], [facility], and [facility]. Awaiting responses. SW to followpending clearance home [...] discharge planning needs. Citlaly Nova, NUBIA, SENIOR REPORT DEVELOPER Inpatient Hospice Administrator/Care Coordination [phone] * Plan of Care - Soco Yap [...] disease. PCP: Enedina Mcguire NP Home Pharmacy: [facility] [address] [place] [address] [facility] [address] [facility] [address] [facility] [place] - [place] - [address] [address] [facility] [id number] Medical Insurance Coverage: [facility] / Plan: [employer] [...] discharge planning needs. NUBIA Escalera, RONALDO Cell [phone] * Plan of Care - Elaine Carrillo [...] at all times. Outcome: Completed Problem: Non-violent, vcv-inux-ujeuoericmn restraints Description: Less restrictive alternative interventions will [...] of medical procedures, or protection of medical secretary access. Outcome: Completed * Plan of Care [...] foods as appropriate. Outcome: Progressing Problem: Non-violent, usv-paky-hauglfjsgyx restraints Description: Less restrictive alternative interventions will [...] of medical procedures, or protection of medical secretary access. Outcome: Progressing * Plan of Care - Shanel Shen RN - 10/27/2024 9:00 AM EDT Problem: Non-violent, vvn-cwho-wjfzeofnunq restraints Description: Less restrictive alternative interventions will [...] - 10/26/2024 7:41 PM EDT Problem: Non-violent, sul-ngsh-bqhylbnjbdw restraints Description: Less restrictive alternative interventions will [...] of medical procedures, or protection of medical secretary access. Outcome: Not Progressing Patient in bilateral [...] restraint flowsheet for further documentation. Problem: Non-violent, osx-bsvw-jehxsddpbzj restraints Description: Less restrictive alternative interventions will [...] of medical procedures, or protection of medical secretary access. Outcome: Progressing * Plan of Care [...] Routine Acute kidney injury superimposed on CKD ([facility]) Release Upon Ordering for 1 Occurrences starting 10/27/2024 Fungus culture Microbiology Routine Acute kidney injury superimposed on CKD ([facility]) Release Upon Ordering for 1 Occurrences starting 10/27/2024 Routine Culture plus Stain Microbiology Routine Acute kidney injury superimposed on CKD ([facility]) Release Upon Ordering for 1 Occurrences starting 10/27/2024 Surgical Pathology Exam Pathology and Cytology Routine Acute kidney injury superimposed on CKD ([facility]) Release Upon Ordering for 1 Occurrences starting [...] Routine 10/31/2024 11:59 AM EDT US DUPLEX MCT-GFVYZE-VXKFIRC COMPLETE Routine 10/31/2024 10:19 AM EDT US [...] Routine 10/28/2024 5:31 PM EDT US DUPLEX VYQ-SPUTHR-MNJDMLG COMPLETE STAT 10/28/2024 4:23 PM EDT US [...] Routine 10/27/2024 10:00 AM EDT US DUPLEX HYW-FVVKFD-ETSOUGH COMPLETE STAT 10/27/2024 9:51 AM EDT US [...] injury superimposed on CKD ([facility]) OR RENAL ALTRNSPLJ IMPLTJ GRF W/GROCERY STORE CLERK NEPHRECTOMY 10/27/2024 2:32 AM EDT Acute kidney injury superimposed on CKD ([facility]) 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 [...] mg/dL 11/02/2024 5:45 PM EDT [facility] Blood 11/02/2024 5:44 PM EDT 11/02/2024 5:45 PM EDT us Semaj Mcnair III, MD POINT OF CARE TEST ORDERABLES Final Result Performing Organization Address City/[facility]/ZIP Co de Phone Number [facility] [address] [place] [address]. [address] * (ABNORMAL) POC Glucose Monitoring Device (11/02/2024 3:34 PM EDT) POC Glucose Monitoring Device 208(H) 70 - 100 mg/dL 11/02/2024 3:35 PM EDT [facility] Blood 11/02/2024 3:34 PM EDT 11/02/2024 3:35 PM EDT us Semaj Mcnair III, MD POINT OF CARE TEST ORDERABLES Final Result Performing Organization Address [facility] Co de Phone Number [facility] [address] [facility]. [address] * (ABNORMAL) POC Glucose Monitoring Device (11/02/2024 1:18 PM EDT) POC Glucose Monitoring Device 225(H) 70 - 100 mg/dL 11/02/2024 1:19 PM EDT [facility] Blood 11/02/2024 1:18 PM EDT 11/02/2024 1:19 PM EDT us Semaj Mcnair III, MD POINT OF CARE TEST ORDERABLES Final Result Performing Organization Address City/[facility] Co de Phone Number [facility] [address] [facility]. [address] * (ABNORMAL) POC Glucose Monitoring Device (11/02/2024 8:59 AM EDT) POC Glucose Monitoring Device 129(H) 70 - 100 mg/dL 11/02/2024 9:00 AM EDT [facility] Blood 11/02/2024 8:59 AM EDT 11/02/2024 9:00 AM EDT Semaj Mcnair III, MD POINT OF CARE TEST ORDERABLES Final Result Performing Organization Address [facility] Co de Phone Number [facility] [address] [place] [address] * Tacrolimus level (11/02/2024 5:53 AM EDT) Pathologist [facility] Tacrolimus (LC-MS) 7.4 3.0 - 15.0 ng/mL 11/02/2024 2:23 PM EDT [facility] Comment:Performed via liquid chromatography tandem mass [...] ORDERABLES Denisse l Result Performing Organization Address City/[facility] Co de Phone Number [facility] [address] [facility]. [address] * (ABNORMAL) Renal Function Panel w/EGFR (11/02/2024 5:53 AM EDT) Sodium 140 133 - 146 mmol/L 11/02/2024 6:47 AM EDT [facility] Potassium 3.3(L) 3.5 - 5.3 mmol/L 11/02/2024 6:47 AM EDT [facility] Chloride 107 98 - 110 mmol/L 11/02/2024 6:47 AM EDT [facility] CO2 25 21 - 33 mmol/L 11/02/2024 6:47 AM EDT [facility] Anion Gap 8 3 - 16 mmol/L 11/02/2024 6:47 AM EDT [facility] BUN 31(H) 7 - 25 mg/dL 11/02/2024 6:47 AM EDT [facility] Creatinine 1.08 0.60 - 1.30 mg/dL 11/02/2024 6:47 AM EDT [facility] Glucose 150(H) 70 - 100 mg/dL 11/02/2024 6:47 AM EDT [facility] Calcium 7.8(L) 8.6 - 10.3 mg/dL 11/02/2024 6:47 AM EDT [facility] Phosphorus 2.0(L) 2.1 - 4.7 mg/dL 11/02/2024 6:47 AM EDT [facility] Albumin 3.2(L) 3.5 - 5.7 g/dL 11/02/2024 6:47 AM EDT [facility] Osmolality, Calculated 299 278 - 305 mOsm/kg 11/02/2024 6:47 AM EDT [facility] EGFR 88 11/02/2024 6:47 AM EDT [facility] Comment:As of 2021, the estimated GFR [...] 11/02/2024 6:12 AM EDT Beata Garland Evens [facility] BLOOD ORDERABLES Denisse l Result [facility] [address] [facility]. [address] * (ABNORMAL) Magnesium (11/02/2024 5:53 AM EDT) Magnesium 1.3(L) 1.5 - 2.5 mg/dL 11/02/2024 6:47 AM EDT [facility] Plasma 11/02/2024 5:53 AM EDT 11/02/2024 6:12 AM EDT [facility] [facility] BLOOD ORDERABLES Denisse l Result Performing Organization Address [facility] Co de Phone Number [facility] [address] * (ABNORMAL) Hepatic Function Panel (11/02/2024 5:53 AM EDT) Total Bilirubin 1.6(H) 0.0 - 1.5 mg/dL 11/02/2024 6:47 AM EDT [facility] Bilirubin, Direct 0.81(H) 0.00 - 0.40 mg/dL 11/02/2024 6:47 AM EDT [facility] AST 30 13 - 39 U/L 11/02/2024 6:47 AM EDT [facility] ALT 66(H) 7 - 52 U/L 11/02/2024 6:47 AM EDT [facility] Alkaline Phosphatase 126(H) 36 - 125 U/L 11/02/2024 6:47 AM EDT [facility] Total Protein 4.6(L) 6.4 - 8.9 g/dL 11/02/2024 6:47 AM EDT [facility] Albumin 3.2(L) 3.5 - 5.7 g/dL 11/02/2024 6:47 AM EDT [facility] Bilirubin, Indirect 0.79 0.00 - 1.10 mg/dL 11/02/2024 6:47 AM EDT [facility] Plasma 11/02/2024 5:53 AM EDT 11/02/2024 6:12 AM EDT [facility] LAB BLOOD ORDERABLES Denisse l Result [facility] [address] * (ABNORMAL) CBC (11/02/2024 5:53 AM EDT) WBC 5.8 3.8 - 10.8 10E3/uL 11/02/2024 6:21 AM EDT [facility] RBC 3.12(L) 4.20 - 5.80 10E6/uL 11/02/2024 6:21 AM EDT [facility] Hemoglobin 9.2(L) 13.2 - 17.1 g/dL 11/02/2024 6:21 AM EDT [facility] Hematocrit 27.5(L) 38.5 - 50.0 % 11/02/2024 6:21 AM EDT [facility] MCV 87.9 80.0 - 100.0 fL 11/02/2024 6:21 AM EDT [facility] MCH 29.5 27.0 - 33.0 pg 11/02/2024 6:21 AM EDT [facility] MCHC 33.5 32.0 - 36.0 g/dL 11/02/2024 6:21 AM EDT [facility] RDW 17.5(H) 11.0 - 15.0 % 11/02/2024 6:21 AM EDT [facility] Platelets 61(L) 140 - 400 10E3/uL 11/02/2024 6:21 AM EDT [facility] MPV 7.9 7.5 - 11.5 fL 11/02/2024 6:21 AM EDT [facility] Whole Blood 11/02/2024 5:53 AM EDT 11/02/2024 6:12 AM EDT [facility] LAB BLOOD ORDERABLES Denisse l Result [facility] [address] * (ABNORMAL) POC Glucose Monitoring Device (11/01/2024 9:26 PM EDT) POC Glucose Monitoring Device 199(H) 70 - 100 mg/dL 11/01/2024 9:27 PM EDT [facility] Blood 11/01/2024 9:26 PM EDT 11/01/2024 9:27 PM EDT Semaj Mcnair III, MD POINT OF CARE TEST ORDERABLES Final Result [facility] [address] [facility]. [address] * (ABNORMAL) POC Glucose Monitoring Device (11/01/2024 5:04 PM EDT) POC Glucose Monitoring Device 255(H) 70 - 100 mg/dL 11/01/2024 5:05 PM EDT [facility] Blood 11/01/2024 5:04 PM EDT 11/01/2024 5:05 PM EDT Semaj Mcnair III, MD POINT OF CARE TEST ORDERABLES Final Result [facility] [address] [facility]. [address] * (ABNORMAL) Renal Function Panel w/EGFR, STAT (11/01/2024 2:17 PM EDT) Sodium 139 133 - 146 mmol/L 11/01/2024 3:10 PM EDT [facility] Potassium 3.3(L) 3.5 - 5.3 mmol/L 11/01/2024 3:10 PM EDT [facility] Chloride 107 98 - 110 mmol/L 11/01/2024 3:10 PM EDT [facility] CO2 24 21 - 33 mmol/L 11/01/2024 3:10 PM EDT [facility] Anion Gap 8 3 - 16 mmol/L 11/01/2024 3:10 PM EDT [facility] BUN 35(H) 7 - 25 mg/dL 11/01/2024 3:10 PM EDT [facility] Creatinine 1.22 0.60 - 1.30 mg/dL 11/01/2024 3:10 PM EDT [facility] Glucose 203(H) 70 - 100 mg/dL 11/01/2024 3:10 PM EDT [facility] Calcium 8.3(L) 8.6 - 10.3 mg/dL 11/01/2024 3:10 PM EDT [facility] Phosphorus 2.2 2.1 - 4.7 mg/dL 11/01/2024 3:10 PM EDT [facility] Albumin 3.4(L) 3.5 - 5.7 g/dL 11/01/2024 3:10 PM EDT [facility] Osmolality, Calculated 302 278 - 305 mOsm/kg 11/01/2024 3:10 PM EDT [facility] EGFR 76 11/01/2024 3:10 PM EDT [facility] Comment:As of 2021, the estimated GFR [...] BLOOD ORDERABLES Final Result [facility] [address] [place] [id number], [facility] * X-ray Portable Abdomen [...] mg/dL 11/01/2024 12:23 PM EDT [facility] Blood 11/01/2024 12:2 2 PM EDT 11/01/2024 12:23 PM EDT Semaj Mcnair III, MD POINT OF CARE TEST ORDERABLES Final Result Performing Organization Address City/[facility] Co de Phone Number [facility] [address] [place] [address] * (ABNORMAL) POC Glucose Monitoring Device (11/01/2024 8:50 AM EDT) POC Glucose Monitoring Device 175(H) 70 - 100 mg/dL 11/01/2024 8:51 AM EDT [facility] Blood 11/01/2024 8:50 AM EDT 11/01/2024 8:51 AM EDT Semaj Mcnair III, MD POINT OF CARE TEST ORDERABLES Final Result Performing Organization Address [facility] de Phone Number [facility] [address] [place] [address] * Tacrolimus level (11/01/2024 6:01 AM EDT) [facility] Tacrolimus (LC-MS) 7.5 3.0 - 15.0 ng/mL 11/01/2024 12:14 PM EDT [facility] Comment:Performed via liquid chromatography tandem mass [...] BLOOD ORDERABLES Denisse l Result [facility] [address] [place] [address], [facility] * (ABNORMAL) Renal Function Panel w/EGFR (11/01/2024 6:01 AM EDT) Sodium 139 133 - 146 mmol/L 11/01/2024 6:57 AM EDT [facility] Potassium 3.3(L) 3.5 - 5.3 mmol/L 11/01/2024 6:57 AM EDT [facility] Chloride 108 98 - 110 mmol/L 11/01/2024 6:57 AM EDT [facility] CO2 22 21 - 33 mmol/L 11/01/2024 6:57 AM EDT [facility] Anion Gap 9 3 - 16 mmol/L 11/01/2024 6:57 AM EDT [facility] BUN 37(H) 7 - 25 mg/dL 11/01/2024 6:57 AM EDT [facility] Creatinine 1.30 0.60 - 1.30 mg/dL 11/01/2024 6:57 AM EDT [facility] Glucose 163(H) 70 - 100 mg/dL 11/01/2024 6:57 AM EDT [facility] Calcium 8.2(L) 8.6 - 10.3 mg/dL 11/01/2024 6:57 AM EDT [facility] Phosphorus 2.9 2.1 - 4.7 mg/dL 11/01/2024 6:57 AM EDT [facility] Albumin 3.1(L) 3.5 - 5.7 g/dL 11/01/2024 6:57 AM EDT [facility] Osmolality, Calculated 300 278 - 305 mOsm/kg 11/01/2024 6:57 AM EDT [facility] EGFR 71 11/01/2024 6:57 AM EDT [facility] Comment:As of 2021, the estimated GFR [...] 11/01/2024 6:20 AM EDT Beata Dada Horner [facility] LAB BLOOD ORDERABLES Denisse l Result Performing Organization Address [facility] Co de Phone Number [facility] [address] [facility]. [address] * Magnesium (11/01/2024 6:01 AM EDT) Magnesium 1.5 1.5 - 2.5 mg/dL 11/01/2024 6:57 AM EDT [facility] Plasma 11/01/2024 6:01 AM EDT 11/01/2024 6:20 AM EDT [facility] [place] Horner [facility] LAB BLOOD ORDERABLES Denisse l Result Performing Organization Address [facility] Co de Phone Number [facility] [address] [facility]. [address] * (ABNORMAL) Hepatic Function Panel (11/01/2024 6:01 AM EDT) Total Bilirubin 2.0(H) 0.0 - 1.5 mg/dL 11/01/2024 6:57 AM EDT [facility] Bilirubin, Direct 1.06(H) 0.00 - 0.40 mg/dL 11/01/2024 6:57 AM EDT [facility] AST 21 13 - 39 U/L 11/01/2024 6:57 AM EDT [facility] ALT 62(H) 7 - 52 U/L 11/01/2024 6:57 AM EDT [facility] Alkaline Phosphatase 114 36 - 125 U/L 11/01/2024 6:57 AM EDT [facility] Total Protein 4.6(L) 6.4 - 8.9 g/dL 11/01/2024 6:57 AM EDT [facility] Albumin 3.1(L) 3.5 - 5.7 g/dL 11/01/2024 6:57 AM EDT [facility] Bilirubin, Indirect 0.94 0.00 - 1.10 mg/dL 11/01/2024 6:57 AM EDT [facility] Plasma 11/01/2024 6:01 AM EDT 11/01/2024 6:20 AM EDT Beata Horner [facility] LAB BLOOD ORDERABLES Denisse valle Result Performing Organization Address City/State/[facility] Co de Phone Number [facility] [address] * (ABNORMAL) CBC (11/01/2024 6:01 AM EDT) WBC 5.9 3.8 - 10.8 10E3/uL 11/01/2024 6:29 AM EDT [facility] RBC 3.19(L) 4.20 - 5.80 10E6/uL 11/01/2024 6:29 AM EDT [facility] Hemoglobin 9.5(L) 13.2 - 17.1 g/dL 11/01/2024 6:29 AM EDT [facility] Hematocrit 27.8(L) 38.5 - 50.0 % 11/01/2024 6:29 AM EDT [facility] MCV 87.1 80.0 - 100.0 fL 11/01/2024 6:29 AM EDT [facility] MCH 29.9 27.0 - 33.0 pg 11/01/2024 6:29 AM EDT [facility] MCHC 34.3 32.0 - 36.0 g/dL 11/01/2024 6:29 AM EDT [facility] RDW 17.4(H) 11.0 - 15.0 % 11/01/2024 6:29 AM EDT [facility] Platelets 56(L) 140 - 400 10E3/uL 11/01/2024 6:29 AM EDT [facility] MPV 8.3 7.5 - 11.5 fL 11/01/2024 6:29 AM EDT [facility] Whole Blood 11/01/2024 6:01 AM EDT 11/01/2024 6:19 AM EDT Beata Horner [facility] LAB BLOOD ORDERABLES Denisse l Result [facility] [address] [facility]. [address] * (ABNORMAL) POC Glucose Monitoring Device (10/31/2024 9:15 PM EDT) POC Glucose Monitoring Device 171(H) 70 - 100 mg/dL 10/31/2024 9:15 PM EDT [facility] Blood 10/31/2024 9:15 PM EDT 10/31/2024 9:15 PM EDT Semaj Mcnair III, MD POINT OF CARE TEST ORDERABLES Final Result Performing Organization Address [facility]/ZIP Co de Phone Number [facility] [address] [facility]. [address] * (ABNORMAL) POC Glucose Monitoring Device (10/31/2024 5:56 PM EDT) POC Glucose Monitoring Device 179(H) 70 - 100 mg/dL 10/31/2024 5:57 PM EDT [facility] Blood 10/31/2024 5:56 PM EDT 10/31/2024 5:57 PM EDT Semaj Mcnair III, MD POINT OF CARE TEST ORDERABLES Final Result Performing Organization Address City/[facility]/ZIP Co de Phone Number [facility] [address] [facility] * CT Abdomen and Pelvis WO [...] Adrenal gland: No focal nodule seen. Kidneys: [place] kidneys noted with nonobstructing calcifications on the right. Findings of postsurgical changes in the left [place] kidney. Mild right hydronephrosis without an obstructive [...] Adrenal gland: No focal nodule seen. Kidneys: [place] kidneys noted with nonobstructing calcifications on theright. Findings of postsurgical changes in the left [place] kidney. Mildright hydronephrosis without an obstructive course [...] (362) on 11/02/2024 6:56:52 AM [facility]riti [facility] ECG ORDERABLES Final Result MUSE * (ABNORMAL) Urinalysis w/Rfl to Microscopic (10/31/2024 1:18 PM EDT) Color, UA Straw Yellow,Straw 10/31/2024 1:46 PM EDT [facility] Clarity, UA Clear Clear 10/31/2024 1:46 PM EDT [facility] Specific [place], UA 1.013 1.005 - 1.035 10/31/2024 1:46 PM EDT [facility] pH, UA 6.5 5.0 - 8.0 10/31/2024 1:46 PM EDT [facility] Protein, UA Negative Negative mg/dL 10/31/2024 1:46 PM EDT [facility] Glucose, UA Negative Negative mg/dL 10/31/2024 1:46 PM EDT [facility] Ketones, UA Negative Negative mg/dL 10/31/2024 1:46 PM EDT [facility] Bilirubin, UA Negative Negative 10/31/2024 1:46 PM EDT [facility] Blood, UA Large(A) Negative 10/31/2024 1:46 PM EDT [facility] Nitrite, UA Negative Negative 10/31/2024 1:46 PM EDT [facility] Urobilinogen, UA <2.0 0.2 - 1.9 mg/dL 10/31/2024 1:46 PM EDT [facility] Leukocyte Esterase, UA Negative Negative 10/31/2024 1:46 PM EDT [facility] RBC, UA >100(H) 0 - 3 /HPF 10/31/2024 1:46 PM EDT [facility] WBC, UA 3 0 - 5 /HPF 10/31/2024 1:46 PM EDT [facility] Hyaline Casts, UA 3(H) 0 - 2 /LPF 10/31/2024 1:46 PM EDT [facility] Urine 10/31/2024 1:18 PM EDT 10/31/2024 1:32 PM EDT Priti Geiger CNP URINE ORDERABLES Final Result Performing Organization Address [facility] Co de Phone Number [facility] [address] * (ABNORMAL) Post Kidney Transplant Urine Culture (10/31/2024 1:18 PM EDT) Culture Result Enterococcus faecium, Vancomycin Resistant(A) [facility] Comment: 1,000- <10,000 cfu/mL Identified by [...] ORDERA BLES Final Result Performing Organization Address City/[facility]/ZIP Co de Phone Number [facility] [address] [facility] * (ABNORMAL) POC Glucose Monitoring Device (10/31/2024 11:59 AM EDT) POC Glucose Monitoring Device 130(H) 70 - 100 mg/dL 10/31/2024 12:21 PM EDT [facility] Blood 10/31/2024 11:5 9 AM EDT 10/31/2024 12:21 PM EDT us Semaj Mcnair III, MD POINT OF CARE TEST ORDERABLES Final Result [facility] [address] [place] [address], [facility] * US Abdomen Limited (10/31/2024 [...] EXAM: US ABDOMEN LIMITED EXAM: US DUPLEX [id number] COMPLETE INDICATION: Post-op liver transplant COMPARISON: None [...] visualized secondary to poor acoustic windows. The [place] right kidney measures 11.6 cm in length. [...] EXAM: US ABDOMEN LIMITED EXAM: US DUPLEX [id number] COMPLETE INDICATION: Post-op liver transplant COMPARISON: None [...] well visualized secondary to poor acousticwindows. The [place] right kidney measures 11.6 cm in length. [...] 10/31/2024 10:35 AM EDT us Beata Horner [place] US ORDERABLES Final R esult * US [...] at 10/31/2024 10:29 AM EDT [facility] IMG US ORDERABLES Final R esult * US Duplex Asj-Osp-Akqpahv Comp (10/31/2024 10:19 AM EDT) Anatomical Region [...] EXAM: US ABDOMEN LIMITED EXAM: US DUPLEX [id number] COMPLETE INDICATION: Post-op liver transplant COMPARISON: None [...] visualized secondary to poor acoustic windows. The [place] right kidney measures 11.6 cm in length. [...] EXAM: US ABDOMEN LIMITED EXAM: US DUPLEX [id number] COMPLETE INDICATION: Post-op liver transplant COMPARISON: None [...] well visualized secondary to poor acousticwindows. The [place] right kidney measures 11.6 cm in length. [...] at 10/31/2024 10:35 AM EDT Beata Horner [place] US ORDERABLES Final R esult * ECG [...] (401) on 11/01/2024 9:21:13 AM Kerijosephra Geiger [facility] ECG ORDERABLES Final Result Performing Organization Address City/[facility]/ZIP Co de Phone Number MUSE * (ABNORMAL) POC Glucose Monitoring Device (10/31/2024 8:44 AM EDT) POC Glucose Monitoring Device 145(H) 70 - 100 mg/dL 10/31/2024 8:45 AM EDT [facility] Blood 10/31/2024 8:44 AM EDT 10/31/2024 8:44 AM EDT Semaj Mcnair III, MD POINT OF CARE TEST ORDERABLES Final Result Performing Organization Address [facility] de Phone Number [facility] [address] * Tacrolimus level (10/31/2024 6:40 AM EDT) Tacrolimus (LC-MS) 8.4 3.0 - 15.0 ng/mL 10/31/2024 10:05 AM EDT [facility] Comment:Performed via liquid chromatography tandem mass [...] ORDERABLES Denisse l Result Performing Organization Address [facility] Co de Phone Number [facility] [address] * (ABNORMAL) Renal Function Panel w/EGFR (10/31/2024 6:40 AM EDT) Sodium 141 133 - 146 mmol/L 10/31/2024 8:09 AM EDT [facility] Potassium 3.5 3.5 - 5.3 mmol/L 10/31[facility]2024 [facility] Chloride 111(H) 98 - 110 mmol/L 10/31/2024 8:09 AM EDT [facility] CO2 20(L) 21 - 33 mmol/L 10/31/2024 8:09 AM EDT [facility] Anion Gap 10 3 - 16 mmol/L 10/31/2024 8:09 AM EDT [facility] BUN 54(H) 7 - 25 mg/dL 10/31/2024 8:09 AM [facility] Creatinine 1.75(H) 0.60 - 1.30 mg/dL 10/31/2024 8:09 AM [facility] Glucose 136(H) 70 - 100 mg/dL 10/31/2024 8:09 AM EDT [facility] Calcium 8.7 8.6 - 10.3 mg/dL 10/31/2024 8:09 AM EDT [facility] Phosphorus 4.1 2.1 - 4.7 mg/dL 10/31/2024 8:09 AM [facility] Albumin 3.2(L) 3.5 - 5.7 g/dL 10/31/2024 8:09 AM [facility] Osmolality, Calculated 309(H) 278 - 305 mOsm/kg 10/31/2024 8:09 AM EDT [facility] EGFR 50 10/31/2024 8:09 AM [facility] Comment:As of 2021, the estimated GFR [...] EDT 10/31/2024 7:35 AM EDT [facility]n [facility] LAB BLOOD ORDERABLES Denisse l Result Performing Organization Address City/[facility] Co de Phone Number [facility] [address] [facility]. [address] * Magnesium (10/31/2024 6:40 AM EDT) Magnesium 1.8 1.5 - 2.5 mg/dL 10/31/2024 8:09 AM EDT [facility] Plasma 10/31/2024 6:40 AM EDT 10/31/2024 7:35 AM EDT [facility] LAB BLOOD ORDERABLES Denisse l Result Performing Organization Address [facility] de Phone Number [facility] [address] [facility]. [address] * (ABNORMAL) Hepatic Function Panel (10/31/2024 6:40 AM EDT) Total Bilirubin 2.7(H) 0.0 - 1.5 mg/dL 10/31/2024 8:09 AM EDT [facility] Bilirubin, Direct 1.57(H) 0.00 - 0.40 mg/dL 10/31/2024 8:09 AM EDT [facility] AST 26 13 - 39 U/L 10/31/2024 8:09 AM EDT [facility] ALT 68(H) 7 - 52 U/L 10/31/2024 8:09 AM EDT [facility] Alkaline Phosphatase 112 36 - 125 U/L 10/31/2024 8:09 AM EDT [facility] Total Protein 4.7(L) 6.4 - 8.9 g/dL 10/31/2024 8:09 AM EDT [facility] Albumin 3.2(L) 3.5 - 5.7 g/dL 10/31/2024 8:09 AM EDT [facility] Bilirubin, Indirect 1.13(H) 0.00 - 1.10 mg/dL 10/31/2024 8:09 AM EDT [facility] Plasma 10/31/2024 6:40 AM EDT 10/31/2024 7:35 AM EDT us Beata Hor[facility] LAB BLOOD ORDERABLES Denisse l Result [facility] [address] [place] [address], [facility] * (ABNORMAL) CBC (10/31/2024 6:40 AM EDT) WBC 6.0 3.8 - 10.8 10E3/uL 10/31/2024 8:05 AM EDT [facility] RBC 3.14(L) 4.20 - 5.80 10E6/uL 10/31/2024 8:05 AM EDT [facility] Hemoglobin 9.6(L) 13.2 - 17.1 g/dL 10/31/2024 8:05 AM EDT [facility] Hematocrit 27.5(L) 38.5 - 50.0 % 10/31/2024 8:05 AM EDT [facility] MCV 87.6 80.0 - 100.0 fL 10/31/2024 8:05 AM EDT [facility] MCH 30.7 27.0 - 33.0 pg 10/31/2024 8:05 AM EDT [facility] MCHC 35.0 32.0 - 36.0 g/dL 10/31/2024 8:05 AM EDT [facility] RDW 17.9(H) 11.0 - 15.0 % 10/31/2024 8:05 AM EDT [facility] Platelets 44(L) 140 - 400 10E3/uL 10/31/2024 8:05 AM EDT [facility] Comment: CNV Specimen checked for clots. None detected. MPV 8.9 7.5 - 11.5 fL 10/31/2024 8:05 AM EDT [facility] Whole Blood 10/31/2024 6:40 AM EDT 10/31/2024 7:34 AM EDT Beata Horner [facility] BLOOD ORDERABLES Denisse l Result [facility] [address] [facility] * (ABNORMAL) POC Glucose Monitoring Device (10/30/2024 9:01 PM EDT) POC Glucose Monitoring Device 144(H) 70 - 100 mg/dL 10/30/2024 9:02 PM EDT [facility] Blood 10/30/2024 9:01 PM EDT 10/30/2024 9:01 PM EDT Semaj Mcnair III, MD POINT OF CARE TEST ORDERABLES Final Result Performing Organization Address [facility]/ZIP Co de Phone Number [facility] [address] [facility]. [address] * (ABNORMAL) POC Glucose Monitoring Device (10/30/2024 5:37 PM EDT) POC Glucose Monitoring Device 124(H) 70 - 100 mg/dL 10/30/2024 5:47 PM EDT [facility] Blood 10/30/2024 5:37 PM EDT 10/30/2024 5:47 PM EDT Semaj Mcnair III, MD POINT OF CARE TEST ORDERABLES Final Result [facility] [address] [facility] * (ABNORMAL) POC Glucose Monitoring Device (10/30/2024 7:26 AM EDT) POC Glucose Monitoring Device 150(H) 70 - 100 mg/dL 10/30/2024 7:27 AM EDT [facility] Blood 10/30/2024 7:26 AM EDT 10/30/2024 7:27 AM EDT Semaj Mcnair III, MD POINT OF CARE TEST ORDERABLES Final Result Performing Organization Address [facility] de Phone Number [facility] [address] * Tacrolimus level (10/30/2024 7:13 AM EDT) [facility] Tacrolimus (LC-MS) 9.5 3.0 - 15.0 ng/mL 10/30/2024 2:53 PM EDT [facility] Comment:Performed via liquid chromatography tandem mass spectrometry. Detection limit: 1 ng/mL. Individual target concentrations may vary due to target organ and time after transplant. This test has been developed and its performance characteristics determined by [facility] which is certified under the Clinical Laboratory [...] EDT 10/30/2024 7:26 AM EDT Priti Geiger [facility] BLOOD ORDERABLES Final Re sult Performing Organization Address [facility] de Phone Number [facility] [address] [facility] * ECG 12-lead (MUSE) (10/30/2024 6:51 [...] mmol/L 10/30/2024 6:18 AM EDT [facility] Potassium 3.8 3.5 - 5.3 mmol/L 10/30/2024 6:18 AM EDT [facility] Chloride 111(H) 98 - 110 mmol/L 10/30/2024 6:18 AM EDT [facility] CO2 17(L) 21 - 33 mmol/L 10/30/2024 6:18 AM EDT [facility] Anion Gap 12 3 - 16 mmol/L 10/30/2024 6:18 AM EDT [facility] BUN 62(H) 7 - 25 mg/dL 10/30/2024 6:18 AM EDT [facility] Creatinine 1.96(H) 0.60 - 1.30 mg/dL 10/30/2024 6:18 AM EDT [facility] Glucose 116(H) 70 - 100 mg/dL 10/30/2024 6:18 AM EDT [facility] Calcium 9.0 8.6 - 10.3 mg/dL 10/30/2024 6:18 AM EDT [facility] Phosphorus 4.6 2.1 - 4.7 mg/dL 10/30/2024 6:18 AM EDT [facility] Albumin 3.2(L) 3.5 - 5.7 g/dL 10/30/2024 6:18 AM EDT [facility] Osmolality, Calculated 309(H) 278 - 305 mOsm/kg 10/30/2024 6:18 AM EDT [facility] EGFR 43 10/30/2024 6:18 AM EDT [facility] Comment:As of 2021, the estimated GFR [...] AM EDT 10/30/2024 5:47 AM EDT [employer] [facility] BLOOD ORDERABLES Denisse l Result Performing Organization Address City/[facility]/ZIP Co de Phone Number [facility] [address] [facility]. [address] * Magnesium (10/30/2024 5:41 AM EDT) Pathologist [facility] Magnesium 2.2 1.5 - 2.5 mg/dL 10/30/2024 6:18 AM EDT [facility] Plasma 10/30/2024 5:41 AM EDT 10/30/2024 5:47 AM EDT [employer] [facility] BLOOD ORDERABLES Denisse l Result Performing Organization Address City/[facility]/ZIP Co de Phone Number [facility] [address] [facility]. [address] * (ABNORMAL) Hepatic Function Panel (10/30/2024 5:41 AM EDT) Total Bilirubin 3.6(H) 0.0 - 1.5 mg/dL 10/30/2024 6:18 AM EDT [facility] Bilirubin, Direct 1.95(H) 0.00 - 0.40 mg/dL 10/30/2024 6:18 AM EDT [facility] AST 33 13 - 39 U/L 10/30/2024 6:18 AM EDT [facility] ALT 71(H) 7 - 52 U/L 10/30/2024 6:18 AM EDT [facility] Alkaline Phosphatase 80 36 - 125 U/L 10/30/2024 6:18 AM EDT [facility] Total Protein 4.8(L) 6.4 - 8.9 g/dL 10/30/2024 6:18 AM EDT [facility] Albumin 3.2(L) 3.5 - 5.7 g/dL 10/30/2024 6:18 AM EDT [facility] Bilirubin, Indirect 1.65(H) 0.00 - 1.10 mg/dL 10/30/2024 6:18 AM EDT [facility] Plasma 10/30/2024 5:41 AM EDT 10/30/2024 5:47 AM EDT us Beata Horner [facility] LAB BLOOD ORDERABLES Denisse l Result Performing Organization Address City/State/[facility] Co de Phone Number [facility] [address] * (ABNORMAL) CBC (10/30/2024 5:41 AM EDT) WBC 8.1 3.8 - 10.8 10E3/uL 10/30/2024 8:06 AM EDT [facility] RBC 3.29(L) 4.20 - 5.80 10E6/uL 10/30/2024 8:06 AM EDT [facility] Hemoglobin 10.1(L) 13.2 - 17.1 g/dL 10/30/2024 8:06 AM EDT [facility] Hematocrit 28.8(L) 38.5 - 50.0 % 10/30/2024 8:06 AM EDT [facility] MCV 87.6 80.0 - 100.0 fL 10/30/2024 8:06 AM EDT [facility] MCH 30.6 27.0 - 33.0 pg 10/30/2024 8:06 AM EDT [facility] MCHC 34.9 32.0 - 36.0 g/dL 10/30/2024 8:06 AM EDT [facility] RDW 18.1(H) 11.0 - 15.0 % 10/30/2024 8:06 AM EDT [facility] Platelets 44(L) 140 - 400 10E3/uL 10/30/2024 8:06 AM EDT [facility] Comment: CNV Specimen checked for clots. None detected. MPV 8.3 7.5 - 11.5 fL 10/30/2024 8:06 AM EDT [facility] Whole Blood 10/30/2024 5:41 AM EDT 10/30/2024 5:50 AM EDT Beata Horner [facility] LAB BLOOD ORDERABLES Denisse l Result [facility] [address] * (ABNORMAL) POC Glucose Monitoring Device (10/29/2024 10:18 PM EDT) POC Glucose Monitoring Device 140(H) 70 - 100 mg/dL 10/29/2024 10:18 PM EDT [facility] Blood 10/29/2024 10:1 8 PM EDT 10/29/2024 10:18 PM EDT Semaj Mcnair III, MD POINT OF CARE TEST ORDERABLES Final Result Performing Organization Address City/[facility]/ZIP Co de Phone Number [facility] [address] * (ABNORMAL) POC Glucose Monitoring Device (10/29/2024 6:42 PM EDT) POC Glucose Monitoring Device 152(H) 70 - 100 mg/dL 10/29/2024 6:43 PM EDT [facility] Blood 10/29/2024 6:42 PM EDT 10/29/2024 6:43 PM EDT Semaj Mcnair III, MD POINT OF CARE TEST ORDERABLES Final Result [facility] [address] * (ABNORMAL) POC Glucose Monitoring Device (10/29/2024 11:35 AM EDT) POC Glucose Monitoring Device 130(H) 70 - 100 mg/dL 10/29/2024 11:36 AM EDT [facility] Blood 10/29/2024 11:3 5 AM EDT 10/29/2024 11:36 AM EDT Semaj Mcnair III, MD POINT OF CARE TEST ORDERABLES Final Result [facility] [address] [facility]. [address] * ECG 12 lead (MUSE) (10/29/2024 [...] NORMAL ECG ^ Confirmed by JORGE MACIAS ([id number]) on 10/29/2024 10:34:50 PM Afshan Bear MD ECG ORDERABLES Final Result MUSE * Tacrolimus level (10/29/2024 8:08 AM EDT) Tacrolimus (LC-MS) 10.4 3.0 - 15.0 ng/mL 10/29/2024 2:07 PM EDT [facility] Comment:Performed via liquid chromatography tandem mass [...] EDT 10/29/2024 8:21 AM EDT Priti Geiger [facility] BLOOD ORDERABLES Final Re sult Performing Organization Address City/[facility]/ZIP Co de Phone Number [facility] [address] * Prepare RBC, leukoreduced, 1 Units (10/29/2024 6:16 AM EDT) Product Code O9679H64 [facility]LL Unit Number [id number] [facility] Dispense Status Presumed Transfused_PT [facility]LL Blood Expiration Date [id number] HCLL Coding System [id number] [facility] Blood Bank Product Shay Plata MD BLOOD BANK PRODUCT O RDERABLES Final Result Performing Organization Address [facility] Co de Phone Number HCLL * Prepare RBC, leukoreduced, 1 Units (10/29/2024 6:15 AM EDT) Product Code C0285L29 [facility] Unit Number [id number] [facility]LL Dispense Status Presumed Transfused_PT [facility]LL Blood Expiration Date [id number] HCLL Coding System [id number] [facility] Blood Bank Product Carlos Marks MD BLOOD BANK PRODUCT ORDERABL ES Final Result Performing Organization Address [facility]/ZIP Co de Phone Number HCLL * Prepare RBC, leukoreduced, 1 Units (10/29/2024 6:15 AM EDT) Product Code [id number] [facility] Unit Number [id number] [facility]LL Dispense Status Presumed Transfused_PT [facility] Blood Expiration Date [id number] HCLL Coding System [id number] [facility]LL Blood Bank Product us John Moreno MD BLOOD BANK PRODUCT ORDERABLE S Final Result [facility] * (ABNORMAL) Renal Function Panel w/EGFR (10/29/2024 5:07 AM EDT) Sodium 144 133 - 146 mmol/L 10/29/2024 5:49 AM EDT [facility] Potassium 3.8 3.5 - 5.3 mmol/L 10/29/2024 5:49 AM EDT [facility] Chloride 113(H) 98 - 110 mmol/L 10/29/2024 5:49 AM EDT [facility] CO2 17(L) 21 - 33 mmol/L 10/29/2024 5:49 AM EDT [facility] Anion Gap 14 3 - 16 mmol/L 10/29/2024 5:49 AM EDT [facility] BUN 57(H) 7 - 25 mg/dL 10/29/2024 5:49 AM EDT [facility] Creatinine 1.93(H) 0.60 - 1.30 mg/dL 10/29/2024 5:49 AM EDT [facility] Glucose 110(H) 70 - 100 mg/dL 10/29/2024 5:49 AM EDT [facility] Calcium 9.3 8.6 - 10.3 mg/dL 10/29/2024 5:49 AM EDT [facility] Phosphorus 4.8(H) 2.1 - 4.7 mg/dL 10/29/2024 5:49 AM EDT [facility] Albumin 3.5 3.5 - 5.7 g/dL 10/29/2024 5:49 AM EDT [facility] Osmolality, Calculated 314(H) 278 - 305 mOsm/kg 10/29/2024 5:49 AM EDT [facility] EGFR 44 10/29/2024 5:49 AM EDT [facility] Comment:As of 2021, the estimated GFR [...] AM EDT 10/29/2024 5:13 AM EDT [employer] [facility] BLOOD ORDERABLES Denisse l Result Performing Organization Address [facility]/ZIP Co de Phone Number [facility] [address] [facility]. [address] * Magnesium (10/29/2024 5:07 AM EDT) Magnesium 2.1 1.5 - 2.5 mg/dL 10/29/2024 5:49 AM EDT [facility] Plasma 10/29/2024 5:07 AM EDT 10/29/2024 5:13 AM EDT [employer] [facility] BLOOD ORDERABLES Denisse l Result Performing Organization Address City/[facility]/ZIP Co de Phone Number [facility] [address] [facility]. [address] * (ABNORMAL) Hepatic Function Panel (10/29/2024 5:07 AM EDT) Total Bilirubin 4.2(H) 0.0 - 1.5 mg/dL 10/29/2024 5:49 AM EDT [facility] Bilirubin, Direct 2.85(H) 0.00 - 0.40 mg/dL 10/29/2024 5:49 AM EDT [facility] AST 31 13 - 39 U/L 10/29/2024 5:49 AM EDT [facility] ALT 88(H) 7 - 52 U/L 10/29/2024 5:49 AM EDT [facility] Alkaline Phosphatase 51 36 - 125 U/L 10/29/2024 5:49 AM EDT [facility] Total Protein 5.2(L) 6.4 - 8.9 g/dL 10/29/2024 5:49 AM EDT [facility] Albumin 3.5 3.5 - 5.7 g/dL 10/29/2024 5:49 AM EDT [facility] Bilirubin, Indirect 1.35(H) 0.00 - 1.10 mg/dL 10/29/2024 5:49 AM EDT [facility] Plasma 10/29/2024 5:07 AM EDT 10/29/2024 5:13 AM EDT us [facility]ata [facility] LAB BLOOD ORDERABLES Denisse l Result [facility] [address] [id number] * (ABNORMAL) CBC (10/29/2024 5:07 AM EDT) WBC 7.8 3.8 - 10.8 10E3/uL 10/29/2024 5:38 AM EDT [facility] RBC 3.05(L) 4.20 - 5.80 10E6/uL 10/29/2024 5:38 AM EDT [facility] Hemoglobin 9.0(L) 13.2 - 17.1 g/dL 10/29/2024 5:38 AM EDT [facility] Hematocrit 26.7(L) 38.5 - 50.0 % 10/29/2024 5:38 AM EDT [facility] MCV 87.4 80.0 - 100.0 fL 10/29/2024 5:38 AM EDT [facility] MCH 29.7 27.0 - 33.0 pg 10/29/2024 5:38 AM EDT [facility] MCHC 33.9 32.0 - 36.0 g/dL 10/29/2024 5:38 AM EDT [facility] RDW 18.3(H) 11.0 - 15.0 % 10/29/2024 5:38 AM EDT [facility] Platelets 41(L) 140 - 400 10E3/uL 10/29/2024 5:38 AM EDT [facility] Comment: CNV Specimen checked for clots. None detected. MPV 7.5 7.5 - 11.5 fL 10/29/2024 5:38 AM EDT [facility] Whole Blood 10/29/2024 5:07 AM EDT 10/29/2024 5:13 AM EDT us [facility]ata [facility] LAB BLOOD ORDERABLES Denisse l Result [facility] [address] [place] [address], [facility] * (ABNORMAL) TEG-Bypass/ECMO/Liver HN (Factor function, Platelet/Fibrin Clot Strength w/Clot Breakdown, Heparinase In All Channels) (10/29/2024 5:07 AM EDT) [facility] Citrated Kaolin Reaction Time (TEGECMOLIVER) 8.9 4.6 - 9.1 minutes 10/29/2024 7:04 AM EDT [facility] Citrated Kaolin W/Heparinase Reaction Time (TEGECMOLIVER) 7.4 4.3 - 8.3 minutes 10/29/2024 7:04 AM EDT [facility] Citrated Kaolin Maximum Amplitude (TEGECMOLIVER) 52.9 52.0 - 69.0 mm 10/29/2024 7:04 AM EDT [facility] Citrated Functional Fibrinogen W/Heparinase Maximum Amplitude(TEGEC MOLIVER) 20.7 15.0 - 34.0 mm 10/29/2024 7:04 AM EDT [facility] Citrated Rapid Teg W/Heparinase Maximum Amplitude (TEGECMOLIVER) 49.7(L) 53.0 - 69.0 mm 10/29/2024 7:04 AM EDT [facility] Citrated Kaolin w/Heparinase Percent Lysis (TEGECMOLIVER) 0.0 0.0 - 3.2 % 10/29/2024 7:04 AM EDT [facility] Whole Blood (Citrate) 10/29/2024 5:07 AM EDT 10/29/2024 5:10 AM EDT Kemar Sahni MD LAB BLOOD ORDERABLES Final Result [facility] [address] [place] [address], [facility] * (ABNORMAL) TEG-Bypass/ECMO/Liver HN (Factor function, Platelet/Fibrin Clot Strength w/Clot Breakdown, Heparinase In All Channels) (10/28/2024 11:55 PM EDT) [facility] Citrated Kaolin Reaction Time (TEGECMOLIVER) 8.6 4.6 - 9.1 minutes 10/29/2024 2:01 AM EDT [facility] Citrated Kaolin W/Heparinase Reaction Time (TEGECMOLIVER) 8.7(H) 4.3 - 8.3 minutes 10/29/2024 2:01 AM EDT [facility] Citrated Kaolin Maximum Amplitude (TEGECMOLIVER) 47.9(L) 52.0 - 69.0 mm 10/29/2024 2:01 AM EDT [facility] Citrated Functional Fibrinogen W/Heparinase Maximum Amplitude(TEGEC MOLIVER) 22.0 15.0 - 34.0 mm 10/29/2024 2:01 AM EDT [facility] Citrated Rapid Teg W/Heparinase Maximum Amplitude (TEGECMOLIVER) 45.9(L) 53.0 - 69.0 mm 10/29/2024 2:01 AM EDT [facility] Citrated Kaolin w/Heparinase Percent Lysis (TEGECMOLIVER) 0.0 0.0 - 3.2 % 10/29/2024 2:01 AM EDT [facility] Whole Blood (Citrate) 10/28/2024 11:55 PM EDT 10/28/2024 11:58 PM EDT Kemar Sahni MD LAB BLOOD ORDERABLES Final Result [facility] [address] * (ABNORMAL) CBC, STAT (10/28/2024 8:04 PM EDT) Pathologist [facility] WBC 3.9 3.8 - 10.8 10E3/uL 10/28/2024 8:36 PM EDT [facility] RBC 2.66(L) 4.20 - 5.80 10E6/uL 10/28/2024 8:36 PM EDT [facility] Hemoglobin 8.0(L) 13.2 - 17.1 g/dL 10/28/2024 8:36 PM EDT [facility] Hematocrit 23.0(L) 38.5 - 50.0 % 10/28/2024 8:36 PM EDT [facility] MCV 86.4 80.0 - 100.0 fL 10/28/2024 8:36 PM EDT [facility] MCH 29.9 27.0 - 33.0 pg 10/28/2024 8:36 PM EDT [facility] MCHC 34.6 32.0 - 36.0 g/dL 10/28/2024 8:36 PM EDT [facility] RDW 18.6(H) 11.0 - 15.0 % 10/28/2024 8:36 PM EDT [facility] Platelets 29(L) 140 - 400 10E3/uL 10/28/2024 8:36 PM EDT [facility] Comment: CNV Specimen checked for clots. None detected. MPV 7.8 7.5 - 11.5 fL 10/28/2024 8:36 PM EDT [facility] Whole Blood 10/28/2024 8:04 PM EDT 10/28/2024 8:14 PM EDT us Carlos Marks MD LAB BLOOD ORDERABLES Final Result [facility] [address] * (ABNORMAL) POC Glucose Monitoring Device (10/28/2024 8:03 PM EDT) [facility] POC Glucose Monitoring Device 122(H) 70 - 100 mg/dL 10/28/2024 8:04 PM EDT [facility] Blood 10/28/2024 8:03 PM EDT 10/28/2024 8:04 PM EDT Semaj Mcnair III, MD POINT OF CARE TEST ORDERABLES Final Result Performing Organization Address City/[facility] Co de Phone Number [facility] [address] [place] [address], [facility] * (ABNORMAL) TEG-Bypass/ECMO/Liver HN (Factor function, Platelet/Fibrin Clot Strength w/Clot Breakdown, Heparinase In All Channels) (10/28/2024 6:39 PM EDT) [facility] Citrated Kaolin Reaction Time (TEGECMOLIVER) 9.0 4.6 - 9.1 minutes 10/28/2024 7:50 PM EDT [facility] Citrated Kaolin W/Heparinase Reaction Time (TEGECMOLIVER) 8.3 4.3 - 8.3 minutes 10/28/2024 7:50 PM EDT [facility] Citrated Kaolin Maximum Amplitude (TEGECMOLIVER) 47.6(L) 52.0 - 69.0 mm 10/28/2024 7:50 PM EDT [facility] Citrated Functional Fibrinogen W/Heparinase Maximum Amplitude(TEGEC MOLIVER) 20.4 15.0 - 34.0 mm 10/28/2024 7:50 PM EDT [facility] Citrated Rapid Teg W/Heparinase Maximum Amplitude (TEGECMOLIVER) 44.0(L) 53.0 - 69.0 mm 10/28/2024 7:50 PM EDT [facility] Citrated Kaolin w/Heparinase Percent Lysis (TEGECMOLIVER) 0.0 0.0 - 3.2 % 10/28/2024 7:50 PM EDT [facility] Whole Blood (Citrate) 10/28/2024 6:39 PM EDT 10/28/2024 6:42 PM EDT Kemar Sahni MD LAB BLOOD ORDERABLES Final Result Performing Organization Address City/State/[facility] Co de Phone Number [facility] [address] * (ABNORMAL) POC Glucose Monitoring Device (10/28/2024 5:31 PM EDT) POC Glucose Monitoring Device 130(H) 70 - 100 mg/dL 10/28/2024 5:31 PM EDT [facility] Blood 10/28/2024 5:31 PM EDT 10/28/2024 5:31 PM EDT Semaj Mcnair III, MD POINT OF CARE TEST ORDERABLES Final Result Performing Organization Address [facility] de Phone Number [facility] [address] * Transfuse RBC Transfusion Rate: Per dept routine (10/28/2024 5:23 PM EDT) Shay Plata MD NURSING TREATMENT OR DERABLES - BLOOD ADMIN Final Result Performing Organization Address [facility] de Phone Number EXTERNAL * Transfuse RBC Transfusion Rate: Per dept routine, 1 Units (10/28/2024 5:23 PM EDT) Shay Plata MD NURSING TREATMENT OR DERABLES - BLOOD ADMIN Final Result Performing Organization Address [facility] de Phone Number EXTERNAL * US [...] EXAM: US ABDOMEN LIMITED EXAM: US DUPLEX [id number] COMPLETE INDICATION: Post-op liver transplant DATE: 10/28/2024 [...] retrohepatic inferior vena cava is patent. The [place] right kidney is partially visualized. A prominent [...] EXAM: US ABDOMEN LIMITED EXAM: US DUPLEX [id number] COMPLETE INDICATION: Post-op liver transplant DATE: 10/28/2024 [...] retrohepatic inferior vena cava is patent. The [place] right kidney is partially visualized. A prominent [...] ORDERABLES Fi nal Result * US Duplex [id number] Comp (10/28/2024 4:23 PM EDT) Anatomical Region [...] EXAM: US ABDOMEN LIMITED EXAM: US DUPLEX [id number] COMPLETE INDICATION: Post-op liver transplant DATE: 10/28/2024 [...] retrohepatic inferior vena cava is patent. The [place] right kidney is partially visualized. A prominent [...] EXAM: US ABDOMEN LIMITED EXAM: US DUPLEX [id number] COMPLETE INDICATION: Post-op liver transplant DATE: 10/28/2024 [...] retrohepatic inferior vena cava is patent. The [place] right kidney is partially visualized. A prominent [...] 4:42 PM EDT us Shay Plata MD [facility] US ORDERABLES Fi nal Result * (ABNORMAL) CBC, STAT (10/28/2024 2:49 PM EDT) WBC 4.0 3.8 - 10.8 10E3/uL 10/28/2024 3:07 PM EDT [facility] RBC 2.44(L) 4.20 - 5.80 10E6/uL 10/28/2024 3:07 PM EDT [facility] Hemoglobin 7.5(L) 13.2 - 17.1 g/dL 10/28/2024 3:07 PM EDT [facility] Hematocrit 21.4(L) 38.5 - 50.0 % 10/28/2024 3:07 PM EDT [facility] MCV 87.6 80.0 - 100.0 fL 10/28/2024 3:07 PM EDT [facility] MCH 30.6 27.0 - 33.0 pg 10/28/2024 3:07 PM EDT [facility] MCHC 34.9 32.0 - 36.0 g/dL 10/28/2024 3:07 PM EDT [facility] RDW 18.4(H) 11.0 - 15.0 % 10/28/2024 3:07 PM EDT [facility] Platelets 30(L) 140 - 400 10E3/uL 10/28/2024 3:07 PM EDT [facility] Comment: CNV Specimen checked for clots. None detected. MPV 7.7 7.5 - 11.5 fL 10/28/2024 3:07 PM EDT [facility] Whole Blood 10/28/2024 2:49 PM EDT 10/28/2024 2:53 PM EDT us Carlos Marks MD LAB BLOOD ORDERABLES Final Result [facility] [address] [place] [address], [facility] * ECG 12 lead [...] ECG ^ ^ Confirmed by JORGE MACIAS ([id number]) on 10/29/2024 10:34:22 PM Hillary FreireD ECG ORDERABLES Final Res ult Performing Organization Address [facility] de Phone Number MUSE * (ABNORMAL) POC Glucose Monitoring Device (10/28/2024 12:54 PM EDT) POC Glucose Monitoring Device 119(H) 70 - 100 mg/dL 10/28/2024 12:55 PM EDT [facility] Blood 10/28/2024 12:5 4 PM EDT 10/28/2024 12:55 PM EDT Semaj Mcnair III, MD POINT OF CARE TEST ORDERABLES Final Result Performing Organization Address [facility] de Phone Number [facility] [address] * Transfuse RBC Transfusion Rate: Per dept routine (10/28/2024 12:31 PM EDT) Carlos aMrks MD NURSING TREATMENT ORDERABLE S - BLOOD ADMIN Final Result Performing Organization Address [facility] de Phone Number EXTERNAL * Transfuse RBC Transfusion Rate: Per dept routine, 1 Units (10/28/2024 12:31 PM EDT) Carlos Marks MD NURSING TREATMENT ORDERABLE S - BLOOD ADMIN Final Result Performing Organization Address [facility] de Phone Number EXTERNAL * Protime-INR, STAT (10/28/2024 11:09 AM EDT) Protime 14.3 12.1 - 15.1 seconds 10/28/2024 11:29 AM EDT [facility] INR 1.1 0.9 - 1.1 10/28/2024 11:29 AM EDT [facility] Comment: RECOMMENDED THERAPEUTIC RANGES USING INR : Stable oral anticoagulant therapy: 2.0 - 3.0 Mechanical prosthetic heart valve: 2.5 - 3.5 Recurrent acute myocardial infarction: 2.5 - 3.5 Plasma 10/28/2024 11:0 9 AM EDT 10/28/2024 11:16 AM EDT us Carlos Marks MD LAB BLOOD ORDERABLES Final Result Performing Organization Address City/[facility]/ZIP Co de Phone Number [facility] [address] [facility]. [address] * (ABNORMAL) Lactic Acid, STAT (10/28/2024 11:09 AM EDT) Lactate 0.3(L) 0.5 - 2.2 mmol/L 10/28/2024 11:37 AM EDT [facility] Plasma 10/28/2024 11:0 9 AM EDT 10/28/2024 11:15 AM EDT us Carlos Marks MD LAB BLOOD ORDERABLES Final Result Performing Organization Address [facility] Co de Phone Number [facility] [address] [facility]. [address] * Magnesium, STAT (10/28/2024 11:09 AM EDT) Magnesium 2.1 1.5 - 2.5 mg/dL 10/28/2024 11:47 AM EDT [facility] Plasma 10/28/2024 11:0 9 AM EDT 10/28/2024 11:16 AM EDT us Carlos Marks MD LAB BLOOD ORDERABLES Final Result Performing Organization Address City/[facility] Co de Phone Number [facility] [address] [facility]. [address] * (ABNORMAL) Renal Function Panel w/EGFR, STAT (10/28/2024 11:09 AM EDT) Sodium 144 133 - 146 mmol/L 10/28/2024 11:47 AM EDT [facility] Potassium 3.4(L) 3.5 - 5.3 mmol/L 10/28/2024 11:47 AM EDT [facility] Chloride 112(H) 98 - 110 mmol/L 10/28/2024 11:47 AM EDT [facility] CO2 22 21 - 33 mmol/L 10/28/2024 11:47 AM EDT [facility] Anion Gap 10 3 - 16 mmol/L 10/28/2024 11:47 AM EDT [facility] BUN 57(H) 7 - 25 mg/dL 10/28/2024 11:47 AM EDT [facility] Creatinine 2.01(H) 0.60 - 1.30 mg/dL 10/28/2024 11:47 AM [facility] Glucose 108(H) 70 - 100 mg/dL 10/28/2024 11:47 AM EDT [facility] Calcium 8.8 8.6 - 10.3 mg/dL 10/28[facility]2024 [facility] Phosphorus 4.0 2.1 - 4.7 mg/dL 10/28/2024 11:47 AM [facility] Albumin 3.3(L) 3.5 - 5.7 g/dL 10/28/2024 11:47 AM [facility] Osmolality, Calculated 314(H) 278 - 305 mOsm/kg 10/28/2024 11:47 AM [facility] EGFR 42 10/28/2024 11:47 AM [facility] Comment:As of 2021, the estimated GFR [...] BLOOD ORDERABLES Final Result [facility] [address] [place] [address], [facility] * (ABNORMAL) TEG-Bypass/ECMO/Liver HN (Factor function, Platelet/Fibrin Clot Strength w/Clot Breakdown, Heparinase In All Channels) (10/28/2024 11:09 AM EDT) [facility] Citrated Kaolin Reaction Time (TEGECMOLIVER) 9.2(H) 4.6 - 9.1 minutes 10/28/2024 12:30 PM EDT [facility] Citrated Kaolin W/Heparinase Reaction Time (TEGECMOLIVER) 9.6(H) 4.3 - 8.3 minutes 10/28/2024 12:30 PM EDT [facility] Citrated Kaolin Maximum Amplitude (TEGECMOLIVER) 51.2(L) 52.0 - 69.0 mm 10/28/2024 12:30 PM EDT [facility] Citrated Functional Fibrinogen W/Heparinase Maximum Amplitude(TEGEC MOLIVER) 21.6 15.0 - 34.0 mm 10/28/2024 12:30 PM EDT [facility] Citrated Rapid Teg W/Heparinase Maximum Amplitude (TEGECMOLIVER) 49.3(L) 53.0 - 69.0 mm 10/28/2024 12:30 PM EDT [facility] Citrated Kaolin w/Heparinase Percent Lysis (TEGECMOLIVER) 0.0 0.0 - 3.2 % 10/28/2024 12:30 PM EDT [facility] Whole Blood (Citrate) 10/28/2024 11:09 AM EDT 10/28/2024 11:14 AM EDT Kemar Sahni MD LAB BLOOD ORDERABLES Final Result [facility] [address] * (ABNORMAL) CBC (10/28/2024 10:21 AM EDT) [facility] WBC 4.1 3.8 - 10.8 10E3/uL 10/28/2024 10:41 AM EDT [facility] RBC 2.30(L) 4.20 - 5.80 10E6/uL 10/28/2024 10:41 AM EDT [facility] Hemoglobin 7.1(L) 13.2 - 17.1 g/dL 10/28/2024 10:41 AM EDT [facility] Hematocrit 20.4(L) 38.5 - 50.0 % 10/28/2024 10:41 AM EDT [facility] MCV 88.5 80.0 - 100.0 fL 10/28/2024 10:41 AM EDT [facility] MCH 30.7 27.0 - 33.0 pg 10/28/2024 10:41 AM EDT [facility] MCHC 34.7 32.0 - 36.0 g/dL 10/28/2024 10:41 AM EDT [facility] RDW 18.7(H) 11.0 - 15.0 % 10/28/2024 10:41 AM EDT [facility] Platelets 37(L) 140 - 400 10E3/uL 10/28/2024 10:41 AM EDT [facility] Comment: CNV Specimen checked for clots. None detected. MPV 7.6 7.5 - 11.5 fL 10/28/2024 10:41 AM EDT [facility] Whole Blood 10/28/2024 10:2 1 AM EDT 10/28/2024 10:29 AM EDT us Carlos Marks MD LAB BLOOD ORDERABLES Final Result [facility] [address] * POC Glucose Monitoring Device (10/28/2024 9:07 AM EDT) [facility] POC Glucose Monitoring Device 97 70 - 100 mg/dL 10/28/2024 9:08 AM EDT [facility] Blood 10/28/2024 9:07 AM EDT 10/28/2024 9:08 AM EDT Semaj Mcnair III, MD POINT OF CARE TEST ORDERABLES Final Result Performing Organization Address [facility] Co de Phone Number [facility] [address] * (ABNORMAL) Tacrolimus level (10/28/2024 8:20 AM EDT) Pathologist [facility] Tacrolimus (LC-MS) <1.0(L) 3.0 - 15.0 ng/mL 10/28/2024 2:02 PM EDT [facility] Comment:Performed via liquid chromatography tandem mass [...] EDT 10/28/2024 8:29 AM EDT Priti Geiger [facility] LAB BLOOD ORDERABLES Final Re sult Performing Organization Address City/[facility]/ZIP Co de Phone Number [facility] [address] [facility]. [address] * (ABNORMAL) POC Glucose Monitoring Device (10/28/2024 8:10 AM EDT) POC Glucose Monitoring Device 102(H) 70 - 100 mg/dL 10/28/2024 8:11 AM EDT [facility] Blood 10/28/2024 8:10 AM EDT 10/28/2024 8:11 AM EDT Semaj Mcnair III, MD POINT OF CARE TEST ORDERABLES Final Result Performing Organization Address [facility] Co de Phone Number [facility] [address] [place] [address]. [address] * POC Glucose Monitoring Device (10/28/2024 6:17 AM EDT) POC Glucose Monitoring Device 100 70 - 100 mg/dL 10/28/2024 6:18 AM EDT [facility] Blood 10/28/2024 6:17 AM EDT 10/28/2024 6:18 AM EDT Semaj Mcnair III, MD POINT OF CARE TEST ORDERABLES Final Result Performing Organization Address [facility] Phone Number [address] * Prepare Platelets, leukoreduced (10/28/2024 6:15 AM EDT) Product Code V6267V32 HCLL Unit Number [id number] HCLL Dispense Status Presumed Transfused_PT HCLL Blood Expiration Date HCLL Coding System [id number] HCLL Product Code N7423G28 HCLL Unit Number [id number] HCLL Dispense Status Presumed Transfused_PT HCLL Blood Expiration Date HCLL Coding System [id number] HCLL us Attending Provider Unknown BLOOD BANK PRODUCT OR DERABLES Final Result HCLL * Prepare Fresh Frozen Plasma (10/28/2024 6:15 AM EDT) Product Code Z5500W88 HCLL Unit Number [id number] HCLL Dispense Status Released from Crossmatch_RE HCLL Blood Expiration Date HCLL Coding System VNAE626 HCLL Product Code T0125G14 HCLL Unit Number [id number] HCLL Dispense Status Presumed Transfused_PT HCLL Blood Expiration Date HCLL Coding System QBAY489 HCLL Product Code O7479A29 HCLL Unit Number [id number] HCLL Dispense Status Released from Crossmatch_RE HCLL Blood Expiration Date HCLL Coding System IQVQ009 HCLL Product Code E6144M79 HCLL Unit Number [id number] HCLL Dispense Status Presumed Transfused_PT HCLL Blood Expiration Date HCLL Coding System TLDM945 HCLL Product Code M9354D98 HCLL Unit Number [id number] HCLL Dispense Status Released from Crossmatch_RE HCLL Blood Expiration Date HCLL Coding System BLHX247 HCLL us Attending Provider Unknown BLOOD BANK PRODUCT OR DERABLES Final Result HCLL * Prepare RBC, leukoreduced (10/28/2024 6:15 AM EDT) Product Code K7528E97 HCLL Unit Number [id number] HCLL Dispense Status Released from Crossmatch_RE HCLL Blood Expiration Date HCLL Coding System JYOI389 HCLL Product Code G1691Q85 HCLL Unit Number [id number] HCLL Dispense Status Presumed Transfused_PT HCLL Blood Expiration Date [id number] HCLL Coding System TWOI802 HCLL Product Code O3260L09 HCLL Unit Number [id number] HCLL Dispense Status Released from Crossmatch_RE HCLL Blood Expiration Date HCLL Coding System [id number] HCLL Product Code N2217W63 HCLL Unit Number [id number] HCLL Dispense Status Presumed Transfused_PT HCLL Blood Expiration Date HCLL Coding System [id number] HCLL Product Code Q0286N11 HCLL Unit Number [id number] HCLL Dispense Status Released from Crossmatch_RE HCLL Blood Expiration Date [id number] HCLL Coding System CFUA428 HCLL Attending Provider Unknown BLOOD BANK PRODUCT OR DERABLES Final Result HCLL * Prepare Platelets, leukoreduced, 1 Units (10/28/2024 6:15 AM EDT) Product Code Z9405J04 HCLL Unit Number [id number] HCLL Dispense Status Presumed Transfused_PT HCLL Blood Expiration Date [id number] HCLL Coding System [id number] HCLL Blood Bank Product John Pina MD BLOOD BANK PRODUCT ORDERABLES F inal Result Performing Organization Address City/[facility] Co de Phone Number HCLL * Prepare Cryoprecipitate, 1 Units (10/28/2024 6:15 AM EDT) Product Code Y5920O86 HCLL Unit Number [id number] HCLL Dispense Status Presumed Transfused_PT HCLL Blood Expiration Date HCLL Coding System KZRQ724 HCLL Product Code G5176J68 HCLL Unit Number [id number] HCLL Dispense Status Presumed Transfused_PT HCLL Blood Expiration Date [id number] HCLL Coding System [id number] HCLL Blood Bank Product John Pina MD BLOOD BANK PRODUCT ORDERABLES F inal Result HCLL * Prepare Fresh Frozen Plasma, 1 Units (10/28/2024 6:15 AM EDT) Product Code N7314K08 HCLL Unit Number [id number] HCLL Dispense Status Presumed Transfused_PT HCLL Blood Expiration Date [id number] HCLL Coding System [id number] HCLL Blood Bank Product John Pina MD BLOOD BANK PRODUCT ORDERABLES F inal Result HCLL * Prepare Cryoprecipitate, 1 Units (10/28/2024 6:15 AM EDT) Product Code P9463P86 HCLL Unit Number [id number] HCLL Dispense Status Presumed Transfused_PT HCLL Blood Expiration Date HCLL Coding System XWOB030 HCLL Product Code G9744L50 HCLL Unit Number [id number] HCLL Dispense Status Presumed Transfused_PT HCLL Blood Expiration Date HCLL Coding System VDZV785 HCLL Product Code S8722V93 HCLL Unit Number [id number] HCLL Dispense Status Presumed Transfused_PT HCLL Blood Expiration Date [id number] HCLL Coding System PDDR839 HCLL Product Code D7830L49 HCLL Unit Number [id number] HCLL Dispense Status Presumed Transfused_PT HCLL Blood Expiration Date [id number] HCLL Coding System [id number] HCLL Blood Bank Product John Pina MD BLOOD BANK PRODUCT ORDERABLES F inal Result Performing Organization Address [facility]/ZIP Co de Phone Number HCLL * (ABNORMAL) POC Glucose Monitoring Device (10/28/2024 4:55 AM EDT) POC Glucose Monitoring Device 104(H) 70 - 100 mg/dL 10/28/2024 4:57 AM EDT [facility] Blood 10/28/2024 4:55 AM EDT 10/28/2024 4:57 AM EDT Semaj Mcnair III, MD POINT OF CARE TEST ORDERABLES Final Result [facility] [address] [place] [address], [facility] * TEG-Bypass/ECMO/Liver HN (Factor function, Platelet/Fibrin Clot Strength w/Clot Breakdown, Heparinase In All Channels) (10/28/2024 4:13 AM EDT) Citrated Kaolin Reaction Time (TEGECMOLIVER) 7.2 4.6 - 9.1 minutes 10/28/2024 5:38 AM EDT [facility] Citrated Kaolin W/Heparinase Reaction Time (TEGECMOLIVER) 7.8 4.3 - 8.3 minutes 10/28/2024 5:38 AM EDT [facility] Citrated Kaolin Maximum Amplitude (TEGECMOLIVER) 53.0 52.0 - 69.0 mm 10/28/2024 5:38 AM EDT [facility] Citrated Functional Fibrinogen W/Heparinase Maximum Amplitude(TEGEC MOLIVER) 21.4 15.0 - 34.0 mm 10/28/2024 5:38 AM EDT [facility] Citrated Rapid Teg W/Heparinase Maximum Amplitude (TEGECMOLIVER) 54.7 53.0 - 69.0 mm 10/28/2024 5:38 AM EDT [facility] Citrated Kaolin w/Heparinase Percent Lysis (TEGECMOLIVER) 0.0 0.0 - 3.2 % 10/28/2024 5:38 AM EDT [facility] Whole Blood (Citrate) 10/28/2024 4:13 AM EDT 10/28/2024 4:28 AM EDT us Kemar Sahni MD LAB BLOOD ORDERABLES Final Result [facility] [address] [place] [address], [facility] * Protime-INR (10/28/2024 4:13 AM EDT) Protime 14.6 12.1 - 15.1 seconds 10/28/2024 4:53 AM EDT [facility] INR 1.1 0.9 - 1.1 10/28/2024 4:53 AM EDT [facility] Comment: RECOMMENDED THERAPEUTIC RANGES USING INR : Stable oral anticoagulant therapy: 2.0 - 3.0 Mechanical prosthetic heart valve: 2.5 - 3.5 Recurrent acute myocardial infarction: 2.5 - 3.5 Plasma 10/28/2024 4:13 AM EDT 10/28/2024 4:41 AM EDT Kemar Sahni MD LAB BLOOD ORDERABLES Final Result Performing Organization Address City/[facility] Co de Phone Number [facility] [address] [facility]. [address] * Magnesium (10/28/2024 4:13 AM EDT) Magnesium 2.2 1.5 - 2.5 mg/dL 10/28/2024 5:15 AM EDT [facility] Plasma 10/28/2024 4:13 AM EDT 10/28/2024 4:41 AM EDT Kemar Sahni MD LAB BLOOD ORDERABLES Final Result Performing Organization Address [facility] de Phone Number [facility] [address] [facility]. [address] * (ABNORMAL) Hepatic Function Panel (10/28/2024 4:13 AM EDT) Total Bilirubin 2.3(H) 0.0 - 1.5 mg/dL 10/28/2024 5:15 AM EDT [facility] Bilirubin, Direct 1.67(H) 0.00 - 0.40 mg/dL 10/28/2024 5:15 AM EDT [facility] AST 44(H) 13 - 39 U/L 10/28/2024 5:15 AM EDT [facility] ALT 101(H) 7 - 52 U/L 10/28/2024 5:15 AM EDT [facility] Alkaline Phosphatase 26(L) 36 - 125 U/L 10/28/2024 5:15 AM EDT [facility] Total Protein 4.5(L) 6.4 - 8.9 g/dL 10/28/2024 5:15 AM EDT [facility] Albumin 3.1(L) 3.5 - 5.7 g/dL 10/28/2024 5:15 AM EDT [facility] Bilirubin, Indirect 0.63 0.00 - 1.10 mg/dL 10/28/2024 5:15 AM EDT [facility] Plasma 10/28/2024 4:13 AM EDT 10/28/2024 4:41 AM EDT Kemar Sahni MD LAB BLOOD ORDERABLES Final Result [facility] [address] [place] [address], [facility] * (ABNORMAL) Renal Function Panel w/EGFR (10/28/2024 4:13 AM EDT) Sodium 142 133 - 146 mmol/L 10/28/2024 5:15 AM EDT [facility] Potassium 3.5 3.5 - 5.3 mmol/L 10/28/2024 5:15 AM EDT [facility] Chloride 111(H) 98 - 110 mmol/L 10/28/2024 5:15 AM EDT [facility] CO2 22 21 - 33 mmol/L 10/28/2024 5:15 AM EDT [facility] Anion Gap 9 3 - 16 mmol/L 10/28/2024 5:15 AM EDT [facility] BUN 58(H) 7 - 25 mg/dL 10/28/2024 5:15 AM EDT [facility] Creatinine 2.24(H) 0.60 - 1.30 mg/dL 10/28/2024 5:15 AM EDT [facility] Glucose 103(H) 70 - 100 mg/dL 10/28/2024 5:15 AM EDT [facility] Calcium 9.1 8.6 - 10.3 mg/dL 10/28/2024 5:15 AM EDT [facility] Phosphorus 4.8(H) 2.1 - 4.7 mg/dL 10/28/2024 5:15 AM EDT [facility] Albumin 3.1(L) 3.5 - 5.7 g/dL 10/28/2024 5:15 AM EDT [facility] Osmolality, Calculated 310(H) 278 - 305 mOsm/kg 10/28/2024 5:15 AM EDT [facility] EGFR 37 10/28/2024 5:15 AM EDT [facility] Comment:As of 2021, the estimated GFR [...] BLOOD ORDERABLES Final Result [facility] [address] [id number] * (ABNORMAL) CBC (10/28/2024 4:13 AM EDT) WBC 4.5 3.8 - 10.8 10E3/uL 10/28/2024 5:09 AM EDT [facility] RBC 2.39(L) 4.20 - 5.80 10E6/uL 10/28/2024 5:09 AM EDT [facility] Hemoglobin 7.3(L) 13.2 - 17.1 g/dL 10/28/2024 5:09 AM EDT [facility] Hematocrit 21.0(L) 38.5 - 50.0 % 10/28/2024 5:09 AM EDT [facility] MCV 87.8 80.0 - 100.0 fL 10/28/2024 5:09 AM EDT [facility] MCH 30.5 27.0 - 33.0 pg 10/28/2024 5:09 AM EDT [facility] MCHC 34.7 32.0 - 36.0 g/dL 10/28/2024 5:09 AM EDT [facility] RDW 18.7(H) 11.0 - 15.0 % 10/28/2024 5:09 AM EDT [facility] Platelets 38(L) 140 - 400 10E3/uL 10/28/2024 5:09 AM EDT [facility] Comment: CNV Specimen checked for clots. None detected. MPV 7.6 7.5 - 11.5 fL 10/28/2024 5:09 AM EDT [facility] Whole Blood 10/28/2024 4:13 AM EDT 10/28/2024 4:41 AM EDT Kemar Sahni MD LAB BLOOD ORDERABLES Final Result [facility] [address] * (ABNORMAL) POC Glucose Monitoring Device (10/28/2024 4:04 AM EDT) POC Glucose Monitoring Device 103(H) 70 - 100 mg/dL 10/28/2024 4:05 AM EDT [facility] Blood 10/28/2024 4:04 AM EDT 10/28/2024 4:05 AM EDT us Semaj Mcnair III, MD POINT OF CARE TEST ORDERABLES Final Result [facility] [address] * (ABNORMAL) POC Glucose Monitoring Device (10/28/2024 3:00 AM EDT) POC Glucose Monitoring Device 106(H) 70 - 100 mg/dL 10/28/2024 3:01 AM EDT [facility] Blood 10/28/2024 3:00 AM EDT 10/28/2024 3:01 AM EDT us Semaj Mcnair III, MD POINT OF CARE TEST ORDERABLES Final Result Performing Organization Address [facility] Co de Phone Number [facility] [address] [facility]. [address] * (ABNORMAL) POC Glucose Monitoring Device (10/28/2024 2:32 AM EDT) POC Glucose Monitoring Device 109(H) 70 - 100 mg/dL 10/28/2024 2:33 AM EDT [facility] Blood 10/28/2024 2:32 AM EDT 10/28/2024 2:33 AM EDT Semaj Mcnair III, MD POINT OF CARE TEST ORDERABLES Final Result Performing Organization Address [facility] Co de Phone Number [facility] [address] [facility]. [address] * (ABNORMAL) POC Glucose Monitoring Device (10/28/2024 2:14 AM EDT) POC Glucose Monitoring Device 115(H) 70 - 100 mg/dL 10/28/2024 2:15 AM EDT [facility] Blood 10/28/2024 2:14 AM EDT 10/28/2024 2:15 AM EDT Semaj Mcnair III, MD POINT OF CARE TEST ORDERABLES Final Result Performing Organization Address [facility] Co de Phone Number [facility] [address] [facility]. [address] * (ABNORMAL) POC Glucose Monitoring Device (10/28/2024 2:03 AM EDT) POC Glucose Monitoring Device 101(H) 70 - 100 mg/dL 10/28/2024 2:04 AM EDT [facility] Blood 10/28/2024 2:03 AM EDT 10/28/2024 2:04 AM EDT Semaj Mcnair III, MD POINT OF CARE TEST ORDERABLES Final Result [facility] [address] [place] [address], [facility] * Transfuse RBC Transfusion Rate: Per dept routine (10/28/2024 1:51 AM EDT) John Moreno MD NURSING TREATMENT ORDERABLES - BLOOD ADMIN Final Result EXTERNAL * Transfuse RBC Transfusion Rate: Per dept routine, 1 Units (10/28/2024 1:51 AM EDT) John Moreno MD NURSING TREATMENT ORDERABLES - BLOOD ADMIN Final Result Performing Organization Address [facility] Co de Phone Number EXTERNAL * (ABNORMAL) TEG-Bypass/ECMO/Liver HN (Factor function, Platelet/Fibrin Clot Strength w/Clot Breakdown, Heparinase In All Channels) (10/28/2024 12:05 AM EDT) [facility] Citrated Kaolin Reaction Time (TEGECMOLIVER) 7.5 4.6 - 9.1 minutes 10/28/2024 1:22 AM EDT [facility] Citrated Kaolin W/Heparinase Reaction Time (TEGECMOLIVER) 7.7 4.3 - 8.3 minutes 10/28/2024 1:22 AM EDT [facility] Citrated Kaolin Maximum Amplitude (TEGECMOLIVER) 54.4 52.0 - 69.0 mm 10/28/2024 1:22 AM EDT [facility] Citrated Functional Fibrinogen W/Heparinase Maximum Amplitude(TEGEC MOLIVER) 20.4 15.0 - 34.0 mm 10/28/2024 1:22 AM EDT [facility] Citrated Rapid Teg W/Heparinase Maximum Amplitude (TEGECMOLIVER) 51.0(L) 53.0 - 69.0 mm 10/28/2024 1:22 AM EDT [facility] Citrated Kaolin w/Heparinase Percent Lysis (TEGECMOLIVER) 0.0 0.0 - 3.2 % 10/28/2024 1:22 AM EDT [facility] Whole Blood (Citrate) 10/28/2024 12:05 AM EDT 10/28/2024 12:09 AM EDT Kemar Sahni MD LAB BLOOD ORDERABLES Final Result [facility] [address] * Magnesium (10/28/2024 12:05 AM EDT) Magnesium 2.2 1.5 - 2.5 mg/dL 10/28/2024 1:59 AM EDT [facility] Plasma 10/28/2024 12:0 5 AM EDT 10/28/2024 12:11 AM EDT Kemar Sahni MD LAB BLOOD ORDERABLES Final Result Performing Organization Address City/[facility] Co de Phone Number [facility] [address] * (ABNORMAL) Renal Function Panel w/EGFR (10/28/2024 12:05 AM EDT) Sodium 144 133 - 146 mmol/L 10/28/2024 1:59 AM EDT [facility] Potassium 3.4(L) 3.5 - 5.3 mmol/L 10/28/2024 1:59 AM EDT [facility] Chloride 112(H) 98 - 110 mmol/L 10/28/2024 1:59 AM EDT [facility] CO2 19(L) 21 - 33 mmol/L 10/28/2024 1:59 AM EDT [facility] Anion Gap 13 3 - 16 mmol/L 10/28/2024 1:59 AM EDT [facility] BUN 59(H) 7 - 25 mg/dL 10/28/2024 1:59 AM EDT [facility] Creatinine 2.42(H) 0.60 - 1.30 mg/dL 10/28/2024 1:59 AM EDT [facility] Glucose 118(H) 70 - 100 mg/dL 10/28/2024 1:59 AM EDT [facility] Calcium 9.0 8.6 - 10.3 mg/dL 10/28/2024 1:59 AM EDT [facility] Phosphorus 5.3(H) 2.1 - 4.7 mg/dL 10/28/2024 1:59 AM EDT [facility] Albumin 3.1(L) 3.5 - 5.7 g/dL 10/28/2024 1:59 AM EDT [facility] Osmolality, Calculated 316(H) 278 - 305 mOsm/kg 10/28/2024 1:59 AM EDT [facility] EGFR 34 10/28/2024 1:59 AM EDT [facility] Comment:As of 2021, the estimated GFR [...] BLOOD ORDERABLES Final Result [facility] [address] [place] [address], [facility] * (ABNORMAL) Differential (10/28/2024 12:05 AM EDT) Neutrophils Relative 88.6(H) 40.0 - 80.0 % 10/28/2024 12:41 AM EDT [facility] Lymphocytes Relative 2.5(L) 15.0 - 45.0 % 10/28/2024 12:41 AM EDT [facility] Monocytes Relative 6.1 0.0 - 12.0 % 10/28/2024 12:41 AM EDT [facility] Eosinophils Relative 2.4 0.0 - 8.0 % 10/28/2024 12:41 AM EDT [facility] Basophils Relative 0.4 0.0 - 1.0 % 10/28/2024 12:41 AM EDT [facility] nRBC 0 0 - 0 /100 WBC 10/28/2024 12:41 AM EDT [facility] Neutrophils Absolute 4,341 1,520 - 8,640 /uL 10/28/2024 12:41 AM EDT [facility] Lymphocytes Absolute 123(L) 570 - 4,860 /uL 10/28/2024 12:41 AM EDT [facility] Monocytes Absolute 299 0 - 1,296 /uL 10/28/2024 12:41 AM EDT [facility] Eosinophils Absolute 118 0 - 864 /uL 10/28/2024 12:41 AM EDT [facility] Basophils Absolute 20 0 - 108 /uL 10/28/2024 12:41 AM EDT [facility] Whole Blood 10/28/2024 12:0 5 AM EDT 10/28/2024 12:11 AM EDT us Kemar Sahni MD LAB BLOOD ORDERABLES Final Result Performing Organization Address City/State/[facility] Co de Phone Number [facility] [address] [id number] * (ABNORMAL) CBC (10/28/2024 12:05 AM EDT) WBC 4.9 3.8 - 10.8 10E3/uL 10/28/2024 12:41 AM EDT [facility] RBC 2.18(L) 4.20 - 5.80 10E6/uL 10/28/2024 12:41 AM EDT [facility] Hemoglobin 6.7(L) 13.2 - 17.1 g/dL 10/28/2024 12:41 AM EDT [facility] Hematocrit 19.2(L) 38.5 - 50.0 % 10/28/2024 12:41 AM EDT [facility] MCV 87.8 80.0 - 100.0 fL 10/28/2024 12:41 AM EDT [facility] MCH 30.6 27.0 - 33.0 pg 10/28/2024 12:41 AM EDT [facility] MCHC 34.8 32.0 - 36.0 g/dL 10/28/2024 12:41 AM EDT [facility] RDW 19.6(H) 11.0 - 15.0 % 10/28/2024 12:41 AM EDT [facility] Platelets 45(L) 140 - 400 10E3/uL 10/28/2024 12:41 AM EDT [facility] Comment: CNV Specimen checked for clots. None detected. MPV 7.8 7.5 - 11.5 fL 10/28/2024 12:41 AM EDT [facility] Whole Blood 10/28/2024 12:0 5 AM EDT 10/28/2024 12:11 AM EDT us Kemar Sahni MD LAB BLOOD ORDERABLES Final Result [facility] [address] * (ABNORMAL) POC Glucose Monitoring Device (10/28/2024 12:03 AM EDT) [facility] POC Glucose Monitoring Device 122(H) 70 - 100 mg/dL 10/28/2024 12:04 AM EDT [facility] Blood 10/28/2024 12:0 3 AM EDT 10/28/2024 12:04 AM EDT Semaj Mcnair III, MD POINT OF CARE TEST ORDERABLES Final Result [facility] [address] * (ABNORMAL) POC Glucose Monitoring Device (10/27/2024 10:03 PM EDT) POC Glucose Monitoring Device 127(H) 70 - 100 mg/dL 10/27/2024 10:03 PM EDT [facility] Blood 10/27/2024 10:0 3 PM EDT 10/27/2024 10:03 PM EDT us Semaj Mcnair III, MD POINT OF CARE TEST ORDERABLES Final Result Performing Organization Address City/[facility]/ZIP Co de Phone Number [facility] [address] [place] [address]. [address] * (ABNORMAL) POC Glucose Monitoring Device (10/27/2024 8:06 PM EDT) POC Glucose Monitoring Device 128(H) 70 - 100 mg/dL 10/27/2024 8:45 PM EDT [facility] Blood 10/27/2024 8:06 PM EDT 10/27/2024 8:45 PM EDT us Semaj Mcnair III, MD POINT OF CARE TEST ORDERABLES Final Result Performing Organization Address [facility] Co de Phone Number [facility] [address] [place] [address]. [address] * (ABNORMAL) POC Glucose Monitoring Device (10/27/2024 6:00 PM EDT) POC Glucose Monitoring Device 128(H) 70 - 100 mg/dL 10/27/2024 6:00 PM EDT [facility] Blood 10/27/2024 6:00 PM EDT 10/27/2024 6:00 PM EDT us Semaj Mcnair III, MD POINT OF CARE TEST ORDERABLES Final Result Performing Organization Address City/[facility] Co de Phone Number [facility] [address] [place] [address] * Lactic Acid, STAT (10/27/2024 5:41 PM EDT) Lactate 0.5 0.5 - 2.2 mmol/L 10/27/2024 6:28 PM EDT [facility] Plasma 10/27/2024 5:41 PM EDT 10/27/2024 5:49 PM EDT Narrative [facility] - 10/27/2024 6:28 PM EDT Redraw us John Moreno MD LAB BLOOD ORDERABLES Final R esult [facility] [address] [facility]. [address] * (ABNORMAL) Hepatic Function Panel, STAT (10/27/2024 5:13 PM EDT) Total Bilirubin 1.7(H) 0.0 - 1.5 mg/dL 10/27/2024 5:50 PM EDT [facility] Bilirubin, Direct 1.17(H) 0.00 - 0.40 mg/dL 10/27/2024 5:50 PM EDT [facility] AST 60(H) 13 - 39 U/L 10/27/2024 5:50 PM EDT [facility] ALT 134(H) 7 - 52 U/L 10/27/2024 5:50 PM EDT [facility] Alkaline Phosphatase 27(L) 36 - 125 U/L 10/27/2024 5:50 PM EDT [facility] Total Protein 4.1(L) 6.4 - 8.9 g/dL 10/27/2024 5:50 PM EDT [facility] Albumin 2.9(L) 3.5 - 5.7 g/dL 10/27/2024 5:50 PM EDT [facility] Bilirubin, Indirect 0.53 0.00 - 1.10 mg/dL 10/27/2024 5:50 PM EDT [facility] Plasma 10/27/2024 5:13 PM EDT 10/27/2024 5:23 PM EDT us Shay Plata MD LAB BLOOD ORDERABLES Final Result [facility] [address] * (ABNORMAL) TEG-Bypass/ECMO/Liver HN (Factor function, Platelet/Fibrin Clot Strength w/Clot Breakdown, Heparinase In All Channels) (10/27/2024 5:13 PM EDT) Citrated Kaolin Reaction Time (TEGECMOLIVER) 8.0 4.6 - 9.1 minutes 10/27/2024 6:56 PM EDT [facility] Citrated Kaolin W/Heparinase Reaction Time (TEGECMOLIVER) 6.8 4.3 - 8.3 minutes 10/27/2024 6:56 PM EDT [facility] Citrated Kaolin Maximum Amplitude (TEGECMOLIVER) 55.4 52.0 - 69.0 mm 10/27/2024 6:56 PM EDT [facility] Citrated Functional Fibrinogen W/Heparinase Maximum Amplitude(TEGEC MOLIVER) 22.9 15.0 - 34.0 mm 10/27/2024 6:56 PM EDT [facility] Citrated Rapid Teg W/Heparinase Maximum Amplitude (TEGECMOLIVER) 50.8(L) 53.0 - 69.0 mm 10/27/2024 6:56 PM EDT [facility] Citrated Kaolin w/Heparinase Percent Lysis (TEGECMOLIVER) 0.1 0.0 - 3.2 % 10/27/2024 6:56 PM EDT [facility] Whole Blood (Citrate) 10/27/2024 5:13 PM EDT 10/27/2024 5:20 PM EDT us Kemar Sahni MD LAB BLOOD ORDERABLES Final Result [facility] [address] [facility] [place] [address], [facility] * (ABNORMAL) Protime-INR (10/27/2024 5:13 PM EDT) Protime 15.2(H) 12.1 - 15.1 seconds 10/27/2024 5:40 PM EDT [facility] INR 1.1 0.9 - 1.1 10/27/2024 5:40 PM EDT [facility] Comment: RECOMMENDED THERAPEUTIC RANGES USING INR : Stable oral anticoagulant therapy: 2.0 - 3.0 Mechanical prosthetic heart valve: 2.5 - 3.5 Recurrent acute myocardial infarction: 2.5 - 3.5 Plasma 10/27/2024 5:13 PM EDT 10/27/2024 5:23 PM EDT Kemar Sahni MD LAB BLOOD ORDERABLES Final Result Performing Organization Address [facility]/ZIP Co de Phone Number [facility] [address] [facility] * Magnesium (10/27/2024 5:13 PM EDT) Pathologist [facility] Magnesium 2.4 1.5 - 2.5 mg/dL 10/27/2024 5:53 PM EDT [facility] Plasma 10/27/2024 5:13 PM EDT 10/27/2024 5:23 PM EDT Kemar Sahni MD LAB BLOOD ORDERABLES Final Result Performing Organization Address [facility] de Phone Number [facility] [address] * (ABNORMAL) Hepatic Function Panel (10/27/2024 5:13 PM EDT) Total Bilirubin 1.7(H) 0.0 - 1.5 mg/dL 10/27/2024 5:53 PM EDT [facility] Bilirubin, Direct 1.10(H) 0.00 - 0.40 mg/dL 10/27/2024 5:53 PM EDT [facility] AST 62(H) 13 - 39 U/L 10/27/2024 5:53 PM EDT [facility] ALT 134(H) 7 - 52 U/L 10/27/2024 5:53 PM EDT [facility] Alkaline Phosphatase 27(L) 36 - 125 U/L 10/27/2024 5:53 PM EDT [facility] Total Protein 4.1(L) 6.4 - 8.9 g/dL 10/27/2024 5:53 PM EDT [facility] Albumin 2.9(L) 3.5 - 5.7 g/dL 10/27/2024 5:53 PM EDT [facility] Bilirubin, Indirect 0.60 0.00 - 1.10 mg/dL 10/27/2024 5:53 PM EDT [facility] Plasma 10/27/2024 5:13 PM EDT 10/27/2024 5:23 PM EDT us Kemar Sahni MD LAB BLOOD ORDERABLES Final Result [facility] [address] * (ABNORMAL) Renal Function Panel w/EGFR (10/27/2024 5:13 PM EDT) Sodium 142 133 - 146 mmol/L 10/27/2024 5:53 PM EDT [facility] Potassium 3.4(L) 3.5 - 5.3 mmol/L 10/27/2024 5:53 PM EDT [facility] Chloride 109 98 - 110 mmol/L 10/27/2024 5:53 PM EDT [facility] CO2 22 21 - 33 mmol/L 10/27/2024 5:53 PM EDT [facility] Anion Gap 11 3 - 16 mmol/L 10/27/2024 5:53 PM EDT [facility] BUN 61(H) 7 - 25 mg/dL 10/27/2024 5:53 PM EDT [facility] Creatinine 2.42(H) 0.60 - 1.30 mg/dL 10/27/2024 5:53 PM EDT [facility] Glucose 125(H) 70 - 100 mg/dL 10/27/2024 5:53 PM EDT [facility] Calcium 8.8 8.6 - 10.3 mg/dL 10/27/2024 5:53 PM EDT [facility] Phosphorus 5.7(H) 2.1 - 4.7 mg/dL 10/27/2024 5:53 PM EDT [facility] Albumin 2.9(L) 3.5 - 5.7 g/dL 10/27/2024 5:53 PM EDT [facility] Osmolality, Calculated 313(H) 278 - 305 mOsm/kg 10/27/2024 5:53 PM EDT [facility] EGFR 34 10/27/2024 5:53 PM EDT [facility] Comment:As of 2021, the estimated GFR [...] BLOOD ORDERABLES Final Result [facility] [address] [place] [address], [facility] * (ABNORMAL) CBC (10/27/2024 5:13 PM EDT) WBC 4.9 3.8 - 10.8 10E3/uL 10/27/2024 6:14 PM EDT [facility] RBC 2.44(L) 4.20 - 5.80 10E6/uL 10/27/2024 6:14 PM EDT [facility] Hemoglobin 7.4(L) 13.2 - 17.1 g/dL 10/27/2024 6:14 PM EDT [facility] Hematocrit 21.4(L) 38.5 - 50.0 % 10/27/2024 6:14 PM EDT [facility] MCV 87.6 80.0 - 100.0 fL 10/27/2024 6:14 PM EDT [facility] MCH 30.3 27.0 - 33.0 pg 10/27/2024 6:14 PM EDT [facility] MCHC 34.6 32.0 - 36.0 g/dL 10/27/2024 6:14 PM EDT [facility] RDW 19.6(H) 11.0 - 15.0 % 10/27/2024 6:14 PM EDT [facility] Platelets 47(L) 140 - 400 10E3/uL 10/27/2024 6:14 PM EDT [facility] Comment: CNV Specimen checked for clots. None detected. MPV 8.1 7.5 - 11.5 fL 10/27/2024 6:14 PM EDT [facility] Whole Blood 10/27/2024 5:13 PM EDT 10/27/2024 5:23 PM EDT Kemar Sahni MD LAB BLOOD ORDERABLES Final Result [facility] [address] * (ABNORMAL) POC Glucose Monitoring Device (10/27/2024 3:57 PM EDT) [facility] POC Glucose Monitoring Device 131(H) 70 - 100 mg/dL 10/27/2024 3:58 PM EDT [facility] Blood 10/27/2024 3:57 PM EDT 10/27/2024 3:58 PM EDT Semaj Mcnair III, MD POINT OF CARE TEST ORDERABLES Final Result [facility] [address] * (ABNORMAL) CBC, STAT (10/27/2024 2:40 PM EDT) Pathologist [facility] WBC 5.8 3.8 - 10.8 10E3/uL 10/27/2024 2:54 PM EDT [facility] RBC 2.43(L) 4.20 - 5.80 10E6/uL 10/27/2024 2:54 PM EDT [facility] Hemoglobin 7.5(L) 13.2 - 17.1 g/dL 10/27/2024 2:54 PM EDT [facility] Hematocrit 21.5(L) 38.5 - 50.0 % 10/27/2024 2:54 PM EDT [facility] MCV 88.2 80.0 - 100.0 fL 10/27/2024 2:54 PM EDT [facility] MCH 30.7 27.0 - 33.0 pg 10/27/2024 2:54 PM EDT [facility] MCHC 34.8 32.0 - 36.0 g/dL 10/27/2024 2:54 PM EDT [facility] RDW 19.1(H) 11.0 - 15.0 % 10/27/2024 2:54 PM EDT [facility] Platelets 50(L) 140 - 400 10E3/uL 10/27/2024 2:54 PM EDT [facility] MPV 7.5 7.5 - 11.5 fL 10/27/2024 2:54 PM EDT [facility] Whole Blood 10/27/2024 2:40 PM EDT 10/27/2024 2:44 PM EDT us John Moreno MD LAB BLOOD ORDERABLES Final R esult Performing Organization Address City/State/[facility] Co de Phone Number [facility] [address] * (ABNORMAL) Blood Gas, Arterial, STAT (10/27/2024 2:40 PM EDT) O2 Sat, Arterial 98 10/27/2024 2:46 PM EDT [facility] FIO2 RA 10/27/2024 2:46 PM EDT [facility] pH, Arterial 7.37 7.35 - 7.45 10/27/2024 2:46 PM EDT [facility] pCO2, Arterial 35 35 - 45 mm Hg 10/27/2024 2:46 PM EDT [facility] pO2, Arterial 92 80 - 100 mm Hg 10/27/2024 2:46 PM EDT [facility] HCO3, Arterial 21(L) 22 - 26 mmol/L 10/27/2024 2:46 PM EDT [facility] CO2 Content,Arteri al 21(L) 23 - 27 mmol/L 10/27/2024 2:46 PM EDT [facility] Base Excess, Arterial -4.6(L) -2.0 - 3.0 mmol/L 10/27/2024 2:46 PM EDT [facility] %HBO2, Arterial 95.4 95.0 - 98.0 % 10/27/2024 2:46 PM EDT [facility] Carboxyhemoglo bin, Arterial 1.6 % 10/27/2024 2:46 PM EDT [facility] Comment: CARBOXYHEMOGLOBIN (CO) REFERENCE RANGES: Non-Smokers: <2 % Smokers: <8 % TOXIC: >20 % Methemoglobin, Arterial 1.0 0.0 - 1.5 % 10/27/2024 2:46 PM EDT [facility] Reduced hemoglobin, Arterial 2.1 0.0 - 5.0 % 10/27/2024 2:46 PM EDT [facility] Blood, Arterial 10/27/2024 2 :40 PM EDT 10/27/2024 2:44 PM EDT Narrative [facility] - 10/27/2024 2:46 PM EDT Post extubation John Moreno MD LAB BLOOD ORDERABLES Final R esult Performing Organization Address City/State/[facility] Co de Phone Number [facility] [address] [place], [place] [address] * (ABNORMAL) POC Glucose Monitoring Device (10/27/2024 2:06 PM EDT) POC Glucose Monitoring Device 134(H) 70 - 100 mg/dL 10/27/2024 2:06 PM EDT [facility] Blood 10/27/2024 2:06 PM EDT 10/27/2024 2:06 PM EDT Semaj Mcnair III, MD POINT OF CARE TEST ORDERABLES Final Result [facility] [address] [place] [address], [facility] * (ABNORMAL) Blood gas, arterial (10/27/2024 12:35 PM EDT) O2 Sat, Arterial 99 10/27/2024 12:46 PM EDT [facility] FIO2 SBT 30% 10/27/2024 12:46 PM EDT [facility] pH, Arterial 7.35 7.35 - 7.45 10/27/2024 12:46 PM EDT [facility] pCO2, Arterial 37 35 - 45 mm Hg 10/27/2024 12:46 PM EDT [facility] pO2, Arterial 182(H) 80 - 100 mm Hg 10/27/2024 12:46 PM EDT [facility] HCO3, Arterial 21(L) 22 - 26 mmol/L 10/27/2024 12:46 PM EDT [facility] CO2 Content,Arteri al 22(L) 23 - 27 mmol/L 10/27/2024 12:46 PM EDT [facility] Base Excess, Arterial -4.8(L) -2.0 - 3.0 mmol/L 10/27/2024 12:46 PM EDT [facility] %HBO2, Arterial 96.3 95.0 - 98.0 % 10/27/2024 12:46 PM EDT [facility] Carboxyhemoglo bin, Arterial 1.7 % 10/27/2024 12:46 PM EDT [facility] Comment: CARBOXYHEMOGLOBIN (CO) REFERENCE RANGES: Non-Smokers: <2 % Smokers: <8 % TOXIC: >20 % Methemoglobin, Arterial 1.4 0.0 - 1.5 % 10/27/2024 12:46 PM EDT [facility] Reduced hemoglobin, Arterial 0.6 0.0 - 5.0 % 10/27/2024 12:46 PM EDT [facility] Blood, Arterial 10/27/2024 1 2:35 PM EDT 10/27/2024 12:42 PM EDT Narrative [facility] - 10/27/2024 12:46 PM EDT Please obtain post SBT Shay Sifuentes MD LAB BLOOD ORDERABLES Final Resu lt [facility] [address] * (ABNORMAL) TEG-Bypass/ECMO/Liver HN (Factor function, Platelet/Fibrin Clot Strength w/Clot Breakdown, Heparinase In All Channels) (10/27/2024 12:07 PM EDT) [facility] Citrated Kaolin Reaction Time (TEGECMOLIVER) 7.9 4.6 - 9.1 minutes 10/27/2024 1:24 PM EDT [facility] Citrated Kaolin W/Heparinase Reaction Time (TEGECMOLIVER) 8.3 4.3 - 8.3 minutes 10/27/2024 1:24 PM EDT [facility] Citrated Kaolin Maximum Amplitude (TEGECMOLIVER) 52.0 52.0 - 69.0 mm 10/27/2024 1:24 PM EDT [facility] Citrated Functional Fibrinogen W/Heparinase Maximum Amplitude(TEGEC MOLIVER) 20.1 15.0 - 34.0 mm 10/27/2024 1:24 PM EDT [facility] Citrated Rapid Teg W/Heparinase Maximum Amplitude (TEGECMOLIVER) 49.4(L) 53.0 - 69.0 mm 10/27/2024 1:24 PM EDT [facility] Citrated Kaolin w/Heparinase Percent Lysis (TEGECMOLIVER) 0.0 0.0 - 3.2 % 10/27/2024 1:24 PM EDT [facility] Whole Blood (Citrate) 10/27/2024 12:07 PM EDT 10/27/2024 12:09 PM EDT Kemar Sahni MD LAB BLOOD ORDERABLES Final Result [facility] [address] [place] [address], [facility] * (ABNORMAL) POC Glucose Monitoring Device (10/27/2024 12:01 PM EDT) POC Glucose Monitoring Device 121(H) 70 - 100 mg/dL 10/27/2024 12:02 PM EDT [facility] Blood 10/27/2024 12:0 1 PM EDT 10/27/2024 12:01 PM EDT Semaj Mcnair III, MD POINT OF CARE TEST ORDERABLES Final Result Performing Organization Address [facility] Co de Phone Number [facility] [address] * (ABNORMAL) POC Glucose Monitoring Device (10/27/2024 10:59 AM EDT) POC Glucose Monitoring Device 126(H) 70 - 100 mg/dL 10/27/2024 11:10 AM EDT [facility] Blood 10/27/2024 10:5 9 AM EDT 10/27/2024 11:10 AM EDT us Semaj Mcnair III, MD POINT OF CARE TEST ORDERABLES Final Result Performing Organization Address [facility] de Phone Number [facility] [address] * ECG 12 lead (MUSE) (10/27/2024 [...] ECG ^ ^ Confirmed by MD ROLLY, [facility] ([id number]) on 10/27/2024 2:51:52 PM us Shay Sifuentes MD ECG ORDERABLES Final Result Performing Organization Address [facility]/State/ZIP Co de Phone Number MUSE * (ABNORMAL) POC Glucose Monitoring Device (10/27/2024 10:00 AM EDT) POC Glucose Monitoring Device 121(H) 70 - 100 mg/dL 10/27/2024 10:01 AM EDT [facility] Blood 10/27/2024 10:0 0 AM EDT 10/27/2024 10:01 AM EDT Semaj Mcnair III, MD POINT OF CARE TEST ORDERABLES Final Result [facility] [address] * US Renal Transplant (10/27/2024 9:51 [...] US ORDERABLES Final Result * US Duplex [id number] Comp (10/27/2024 9:51 AM EDT) Anatomical Region [...] EXAM: US ABDOMEN LIMITED EXAM: US DUPLEX [id number] COMPLETE INDICATION: Post-op liver transplant COMPARISON: None [...] absent.. Pancreas: Obscured by overlying bowel gas. [place] right kidney: 12.5 cm in length. Normal [...] EXAM: US ABDOMEN LIMITED EXAM: US DUPLEX [id number] COMPLETE INDICATION: Post-op liver transplant COMPARISON: None [...] absent.. Pancreas: Obscured by overlying bowel gas. [place] right kidney: 12.5 cm in length. Normal [...] EXAM: US ABDOMEN LIMITED EXAM: US DUPLEX [id number] COMPLETE INDICATION: Post-op liver transplant COMPARISON: None [...] absent.. Pancreas: Obscured by overlying bowel gas. [place] right kidney: 12.5 cm in length. Normal [...] EXAM: US ABDOMEN LIMITED EXAM: US DUPLEX [id number] COMPLETE INDICATION: Post-op liver transplant COMPARISON: None [...] absent.. Pancreas: Obscured by overlying bowel gas. [place] right kidney: 12.5 cm in length. Normal [...] 10:38 AM EDT us Sveta Judge MD [facility] US ORDERABLES Final Result * CARISA Rhythm Strip - Scan (10/27/2024 9:25 AM EDT) us Scanning Uchhim SCAN DOCS - NO RESULTS Final Res ult * (ABNORMAL) POC Glucose Monitoring Device (10/27/2024 9:05 AM EDT) POC Glucose Monitoring Device 118(H) 70 - 100 mg/dL 10/27/2024 9:06 AM EDT [facility] Blood 10/27/2024 9:05 AM EDT 10/27/2024 9:06 AM EDT Semaj Mcnair III, MD POINT OF CARE TEST ORDERABLES Final Result [facility] [address] * X-ray Portable Chest (10/27/2024 8:58 [...] seconds 10/27/2024 8:35 AM EDT [facility] INR 1.2(H) 0.9 - 1.1 10/27/2024 8:35 AM EDT [facility] Comment: RECOMMENDED THERAPEUTIC RANGES USING INR : Stable oral anticoagulant therapy: 2.0 - 3.0 Mechanical prosthetic heart valve: 2.5 - 3.5 Recurrent acute myocardial infarction: 2.5 - 3.5 Plasma 10/27/2024 8:16 AM EDT 10/27/2024 8:20 AM EDT us John Moreno MD LAB BLOOD ORDERABLES Final R esult [facility] [address] [facility] [place] [address], [facility] * Magnesium (10/27/2024 8:00 AM EDT) Magnesium 1.8 1.5 - 2.5 mg/dL 10/27/2024 10:50 AM EDT [facility] Plasma 10/27/2024 8:00 AM EDT 10/27/2024 10:31 AM EDT Kemar Sahni MD LAB BLOOD ORDERABLES Final Result Performing Organization Address City/State/[facility] Co de Phone Number [facility] [address] [place], [place] [address] * (ABNORMAL) Renal Function Panel w/EGFR (10/27/2024 8:00 AM EDT) Sodium 142 133 - 146 mmol/L 10/27/2024 10:18 AM EDT [facility] Potassium 3.0(L) 3.5 - 5.3 mmol/L 10/27/2024 10:18 AM EDT [facility] Chloride 109 98 - 110 mmol/L 10/27/2024 10:18 AM EDT [facility] CO2 21 21 - 33 mmol/L 10/27/2024 10:18 AM EDT [facility] Anion Gap 12 3 - 16 mmol/L 10/27/2024 10:18 AM EDT [facility] BUN 59(H) 7 - 25 mg/dL 10/27/2024 10:18 AM EDT [facility] Creatinine 2.54(H) 0.60 - 1.30 mg/dL 10/27/2024 10:18 AM EDT [facility] Glucose 111(H) 70 - 100 mg/dL 10/27/2024 10:18 AM EDT [facility] Calcium 9.1 8.6 - 10.3 mg/dL 10/27/2024 10:18 AM EDT [facility] Phosphorus 5.5(H) 2.1 - 4.7 mg/dL 10/27/2024 10:18 AM EDT [facility] Albumin 3.0(L) 3.5 - 5.7 g/dL 10/27/2024 10:18 AM EDT [facility] Osmolality, Calculated 311(H) 278 - 305 mOsm/kg 10/27/2024 10:18 AM EDT [facility] EGFR 32 10/27/2024 10:18 AM EDT [facility] Comment:As of 2021, the estimated GFR [...] BLOOD ORDERABLES Final Result [facility] [address] * (ABNORMAL) Hepatic Function Panel, STAT (10/27/2024 8:00 AM EDT) Total Bilirubin 1.3 0.0 - 1.5 mg/dL 10/27/2024 8:51 AM EDT [facility] Bilirubin, Direct 0.93(H) 0.00 - 0.40 mg/dL 10/27/2024 8:51 AM EDT [facility] AST 88(H) 13 - 39 U/L 10/27/2024 8:51 AM EDT [facility] ALT 149(H) 7 - 52 U/L 10/27/2024 8:51 AM EDT [facility] Alkaline Phosphatase 26(L) 36 - 125 U/L 10/27/2024 8:51 AM EDT [facility] Total Protein 4.0(L) 6.4 - 8.9 g/dL 10/27/2024 8:51 AM EDT [facility] Albumin 3.0(L) 3.5 - 5.7 g/dL 10/27/2024 8:51 AM EDT [facility] Bilirubin, Indirect 0.37 0.00 - 1.10 mg/dL 10/27/2024 8:51 AM EDT [facility] Plasma 10/27/2024 8:00 AM EDT 10/27/2024 8:20 AM EDT Semaj Mcnair III, MD LAB BLOOD ORDERABLE S Final Result Performing Organization Address [facility] de Phone Number [facility] [address] [facility] * (ABNORMAL) Lactic Acid, STAT (10/27/2024 8:00 AM EDT) Lactate 0.4(L) 0.5 - 2.2 mmol/L 10/27/2024 8:43 AM EDT [facility] Plasma 10/27/2024 8:00 AM EDT 10/27/2024 8:20 AM EDT Semaj Mcnair III, MD LAB BLOOD ORDERABLE S Final Result Performing Organization Address [facility] de Phone Number [facility] [address] [facility] * (ABNORMAL) Blood Gas, Arterial, STAT (10/27/2024 8:00 AM EDT) O2 Sat, Arterial 100 10/27/2024 8:23 AM EDT [facility] pH, Arterial 7.36 7.35 - 7.45 10/27/2024 8:23 AM EDT [facility] pCO2, Arterial 37 35 - 45 mm Hg 10/27/2024 8:23 AM EDT [facility] pO2, Arterial 245(H) 80 - 100 mm Hg 10/27/2024 8:23 AM EDT [facility] HCO3, Arterial 22 22 - 26 mmol/L 10/27/2024 8:23 AM EDT [facility] CO2 Content,Arteri al 22(L) 23 - 27 mmol/L 10/27/2024 8:23 AM EDT [facility] Base Excess, Arterial -4.2(L) -2.0 - 3.0 mmol/L 10/27/2024 8:23 AM EDT [facility] %HBO2, Arterial 96.5 95.0 - 98.0 % 10/27/2024 8:23 AM EDT [facility] Carboxyhemoglo bin, Arterial 2.2 % 10/27/2024 8:23 AM EDT [facility] Comment: CARBOXYHEMOGLOBIN (CO) REFERENCE RANGES: Non-Smokers: <2 % Smokers: <8 % TOXIC: >20 % Methemoglobin, Arterial 1.2 0.0 - 1.5 % 10/27/2024 8:23 AM EDT [facility] Reduced hemoglobin, Arterial 0.0 0.0 - 5.0 % 10/27/2024 8:23 AM EDT [facility] Blood, Arterial 10/27/2024 8 :00 AM EDT 10/27/2024 8:19 AM EDT Narrative [facility] - 10/27/2024 8:23 AM EDT Specimen is beyond 15 minutes from time of collection. Results may be compromised. Review results critically. Kemar Sahni MD LAB BLOOD ORDERABLES Final Result [facility] [address] [place] [address], [facility] * (ABNORMAL) TEG-Bypass/ECMO/Liver HN (Factor function, Platelet/Fibrin Clot Strength w/Clot Breakdown, Heparinase In All Channels) (10/27/2024 8:00 AM EDT) Citrated Kaolin Reaction Time (TEGECMOLIVER) 7.8 4.6 - 9.1 minutes 10/27/2024 9:39 AM EDT [facility] Citrated Kaolin W/Heparinase Reaction Time (TEGECMOLIVER) 8.0 4.3 - 8.3 minutes 10/27/2024 9:39 AM EDT [facility] Citrated Kaolin Maximum Amplitude (TEGECMOLIVER) 52.7 52.0 - 69.0 mm 10/27/2024 9:39 AM EDT [facility] Citrated Functional Fibrinogen W/Heparinase Maximum Amplitude(TEGEC MOLIVER) 19.0 15.0 - 34.0 mm 10/27/2024 9:39 AM EDT [facility] Citrated Rapid Teg W/Heparinase Maximum Amplitude (TEGECMOLIVER) 49.5(L) 53.0 - 69.0 mm 10/27/2024 9:39 AM EDT [facility] Citrated Kaolin w/Heparinase Percent Lysis (TEGECMOLIVER) 0.0 0.0 - 3.2 % 10/27/2024 9:39 AM EDT [facility] Whole Blood (Citrate) 10/27/2024 8:00 AM EDT 10/27/2024 8:19 AM EDT Kemar Sahni MD LAB BLOOD ORDERABLES Final Result Performing Organization Address City/[facility]/ZIP Co de Phone Number [facility] [address] * (ABNORMAL) Katie-Watkins virus VCA IgG Antibody (10/27/2024 8:00 AM EDT) [facility] 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 EBV IGG NUM 314.00(H) 0.00 - 17.99 U/mL 10/27/2024 11:30 AM EDT [facility] Serum 10/27/2024 8:00 AM EDT 10/27/2024 8:20 AM EDT Kemar Sahni MD LAB BLOOD ORDERABLES Final Result [facility] [address] * Hemoglobin A1c (10/27/2024 8:00 AM EDT) Hemoglobin A1C 5.0 4.0 - 5.6 % 10/27/2024 11:12 AM EDT [facility] Comment: Hemoglobin A1c Interpretation Guidelines: Normal: [...] BLOOD ORDERABLES Final Result Performing Organization Address [facility]/ZIP Co de Phone Number [facility] [address] [facility]. [address] * (ABNORMAL) POC Glucose Monitoring Device (10/27/2024 7:59 AM EDT) Pathologist [facility] POC Glucose Monitoring Device 113(H) 70 - 100 mg/dL 10/27/2024 7:59 AM EDT [facility] Blood 10/27/2024 7:59 AM EDT 10/27/2024 7:59 AM EDT Semaj Mcnair III, MD POINT OF CARE TEST ORDERABLES Final Result Performing Organization Address [facility]/State/[facility] Co de Phone Number [facility] [address] [facility] * X-ray Abdomen AP view (10/27/2024 [...] Units (10/27/2024 6:16 AM EDT) Product Code L5042C39 [facility] Unit Number [id number] [facility] Dispense Status Presumed Transfused_PT [facility] Blood Expiration Date 155432845257 [facility] Coding System [id number] [facility] Product Code G6551W67 [facility] Unit Number [id number] [facility] Dispense Status Presumed Transfused_PT [facility] Blood Expiration Date [id number] [facility] Coding System [id number] [facility] Blood Bank Product John Pina MD BLOOD BANK PRODUCT ORDERABLES F inal Result [facility] * Prepare Platelets, leukoreduced, 1 Units (10/27/2024 6:16 AM EDT) Product Code Z5179A41 [facility] Unit Number [id number] [facility] Dispense Status Presumed Transfused_PT [facility] Blood Expiration Date [id number] [facility] Coding System [id number] [facility] Blood Bank Product Eber Quinones MD BLOOD BANK PRODUCT ORDER PAL Final Result [facility] * Prepare Cryoprecipitate, 1 Units (10/27/2024 6:16 AM EDT) Product Code S3681T01 [facility] Unit Number [id number] [facility] Dispense Status Presumed Transfused_PT [facility] Blood Expiration Date [id number] [facility] Coding System [id number] [facility] Product Code Y8258I07 [facility] Unit Number [id number] [facility] Dispense Status Presumed Transfused_PT [facility] Blood Expiration Date [id number] [facility] Coding System [id number] [facility] Blood Bank Product Eber Quinones MD BLOOD BANK PRODUCT ORDER PAL Final Result [facility] * Prepare Fresh Frozen Plasma, 10 Units (10/27/2024 6:16 AM EDT) Product Code D5399T91 [facility] Unit Number [id number] [facility] Dispense Status Presumed Transfused_PT [facility] Blood Expiration Date [facility] Coding System [id number] [facility] Product Code T2369R28 [facility] Unit Number [id number] [facility] Dispense Status Presumed Transfused_PT [facility] Blood Expiration Date [facility] Coding System QMLG679 [facility] Product Code N8083E21 [facility] Unit Number [id number] [facility] Dispense Status Presumed Transfused_PT [facility] Blood Expiration Date [facility] Coding System VPLX338 [facility] Product Code E6613N42 [facility] Unit Number [id number] [facility] Dispense Status Presumed Transfused_PT [facility] Blood Expiration Date [facility] Coding System FWYG133 [facility] Product Code E9242R10 [facility] Unit Number [id number] [facility] Dispense Status Released from Crossmatch_RE [facility] Blood Expiration Date [facility] Coding System YNMY719 [facility] Product Code J4874Z04 [facility] Unit Number [id number] [facility] Dispense Status Released from Crossmatch_RE [facility] Blood Expiration Date [facility] Coding System QEMW812 [facility] Product Code X9074D11 [facility] Unit Number [id number] [facility] Dispense Status Presumed Transfused_PT [facility] Blood Expiration Date [facility] Coding System DXCO091 [facility] Product Code P3411Y71 [facility] Unit Number [id number] [facility] Dispense Status Presumed Transfused_PT [facility] Blood Expiration Date [facility] Coding System RHBV878 [facility] Product Code Y9561C78 [facility] Unit Number [id number] [facility] Dispense Status Presumed Transfused_PT [facility] Blood Expiration Date [facility] Coding System VNTY275 [facility] Product Code D2339L72 [facility] Unit Number [id number] [facility] Dispense Status Presumed Transfused_PT [facility] Blood Expiration Date [facility] Coding System KQGN283 [facility] Blood Bank Product Leandra Og MD BLOOD BANK PRODUCT ORD ERABLES Final Result Performing Organization Address City/[facility]/ZIP Co de Phone Number [facility] * Prepare Platelets, leukoreduced, 1 Units (10/27/2024 6:16 AM EDT) Product Code W6911Y43 [facility] Unit Number [id number] [facility] Dispense Status Presumed Transfused_PT [facility] Blood Expiration Date [facility] Coding System [id number] [facility] Blood Bank Product Ben Blake MD BLOOD BANK PRODUCT ORDERABLES Final Result Performing Organization Address [facility] de Phone Number [facility] * Prepare Fresh Frozen Plasma (10/27/2024 6:15 AM EDT) Product Code Q3555D04 [facility] Unit Number [id number] [facility] Dispense Status Presumed Transfused_PT HCLL Blood Expiration Date HCLL Coding System [id number] HCLL Product Code S5324D89 HCLL Unit Number [id number] HCLL Dispense Status Released from Crossmatch_RE HCLL Blood Expiration Date HCLL Coding System [id number] HCLL Product Code O9068A42 HCLL Unit Number [id number] HCLL Dispense Status Presumed Transfused_PT HCLL Blood Expiration Date HCLL Coding System [id number] HCLL Product Code W0552B65 HCLL Unit Number [id number] HCLL Dispense Status Presumed Transfused_PT HCLL Blood Expiration Date HCLL Coding System [id number] HCLL Product Code V0888C66 HCLL Unit Number [id number] HCLL Dispense Status Released from Crossmatch_RE HCLL Blood Expiration Date [id number] HCLL Coding System [id number] HCLL us Attending Provider Unknown BLOOD BANK PRODUCT OR DERABLES Final Result HCLL * Prepare RBC, leukoreduced (10/27/2024 6:15 AM EDT) Product Code S8048E67 HCLL Unit Number [id number] HCLL Dispense Status Presumed Transfused_PT HCLL Blood Expiration Date [id number] HCLL Coding System [id number] HCLL Product Code U3252Z92 HCLL Unit Number [id number] HCLL Dispense Status Released from Crossmatch_RE HCLL Blood Expiration Date [id number] HCLL Coding System [id number] HCLL Product Code W2794C03 HCLL Unit Number [id number] HCLL Dispense Status Released from Crossmatch_RE HCLL Blood Expiration Date [id number] HCLL Coding System [id number] HCLL Product Code I5220S03 HCLL Unit Number [id number] HCLL Dispense Status Released from Crossmatch_RE HCLL Blood Expiration Date [id number] HCLL Coding System [id number] HCLL Product Code Q1493W19 HCLL Unit Number [id number] HCLL Dispense Status Released from Crossmatch_RE HCLL Blood Expiration Date [id number] HCLL Coding System [id number] HCLL us Attending Provider Unknown BLOOD BANK PRODUCT OR DERABLES Final Result HCLL * Prepare RBC, leukoreduced, 10 Units (10/27/2024 6:15 AM EDT) Product Code M3251X88 HCLL Unit Number [id number] HCLL Dispense Status Presumed Transfused_PT HCLL Blood Expiration Date [id number] HCLL Coding System [id number] HCLL Product Code T0250F42 HCLL Unit Number [id number] HCLL Dispense Status Presumed Transfused_PT HCLL Blood Expiration Date 624020874743 HCLL Coding System EERR973 HCLL Product Code C5368Y17 HCLL Unit Number [id number] HCLL Dispense Status Presumed Transfused_PT HCLL Blood Expiration Date 190350714315 HCLL Coding System OWJG935 HCLL Product Code D5148L75 HCLL Unit Number [id number] HCLL Dispense Status Presumed Transfused_PT HCLL Blood Expiration Date [id number] HCLL Coding System [id number] HCLL Product Code Y0937Z31 HCLL Unit Number [id number] HCLL Dispense Status Presumed Transfused_PT HCLL Blood Expiration Date [id number] HCLL Coding System OBEZ256 HCLL Product Code Z2457Y19 HCLL Unit Number [id number] HCLL Dispense Status Presumed Transfused_PT HCLL Blood Expiration Date 199274749418 HCLL Coding System [id number] HCLL Product Code Y0413S98 HCLL Unit Number [id number] HCLL Dispense Status Presumed Transfused_PT HCLL Blood Expiration Date [id number] HCLL Coding System [id number] HCLL Product Code P9763S21 HCLL Unit Number [id number] HCLL Dispense Status Presumed Transfused_PT HCLL Blood Expiration Date 093472593026 HCLL Coding System [id number] HCLL Product Code C4496G00 HCLL Unit Number [id number] HCLL Dispense Status Presumed Transfused_PT HCLL Blood Expiration Date 456393200745 HCLL Coding System NJWF152 HCLL Product Code M6896V21 HCLL Unit Number [id number] HCLL Dispense Status Presumed Transfused_PT HCLL Blood Expiration Date HCLL Coding System [id number] HCLL Blood Bank Product us Leandra Og MD BLOOD BANK PRODUCT ORD ERABLES Final Result HCLL * Transfuse Platelets (10/27/2024 6:09 AM EDT) us Ben Blake MD NURSING TREATMENT ORDERABLES - BLOOD ADMIN Final Result * (ABNORMAL) Arterial Blood Gas Panel (10/27/2024 6:09 AM EDT) O2Sat (ABGP) 100 10/27/2024 6:17 AM EDT [facility] pH (ABGP) 7.30(L) 7.35 - 7.45 10/27/2024 6:17 AM EDT [facility] PCO2 (ABGP) 41 35 - 45 mm Hg 10/27/2024 6:17 AM EDT [facility] PO2 (ABGP) 192(H) 80 - 100 mm Hg 10/27/2024 6:17 AM EDT [facility] HCO3 (ABGP) 21(L) 22 - 26 mmol/L 10/27/2024 6:17 AM EDT [facility] CO2 Content (ABGP) 22(L) 23 - 27 mmol/L 10/27/2024 6:17 AM EDT [facility] Base Excess (ABGP) -5.7(L) -2.0 - 3.0 mmol/L 10/27/2024 6:17 AM EDT [facility] Sodium (ABGP) 138 136 - 146 mEq/L 10/27/2024 6:17 AM EDT [facility] Potassium (ABGP) 3.3(L) 3.5 - 5.0 mEq/L 10/27/2024 6:17 AM EDT [facility] Comment:In the event of in-v itro hemolysis, potassium results may be falsely elevated. Always interpret lab results in conjunction with clinical findings. If hemolysis is suspected, a serum sample may be collected for repeat assessment of potassium. Calcium, Free (ABGP) 5.28 4.50 - 5.30 mg/dL 10/27/2024 6:17 AM EDT [facility] Glucose (ABGP) 112(H) 70 - 100 mg/dL 10/27/2024 6:17 AM EDT [facility] Comment:There is interferenc e with whole blood glucose results on this method when Hematocrit is <25% or >60%. HCT (ABGP) 20.0(L) 40.0 - 52.0 % 10/27/2024 6:17 AM EDT [facility] HGB (ABGP) 6.5(L) 14.0 - 18.0 g/dL 10/27/2024 6:17 AM EDT [facility] %HBO2 (ABGP) 96.8 95.0 - 98.0 % 10/27/2024 6:17 AM EDT [facility] Carboxyhgb (ABGP) 2.1 % 025 6:17 AM EDT [facility] Comment: CARBOXYHEMOGLOBIN (CO) REFERENCE RANGES: Non-Smokers: <2 % Smokers: <8 % TOXIC: >20 % Methemoglobin (ABGP) 1.0 0.0 - 1.5 % 10/27/2024 6:17 AM EDT [facility] Reduced Hemoglobin (ABGP) 0.2 0.0 - 5.0 % 10/27/2024 6:17 AM EDT [facility] Lactic Acid (ABGP) 0.4(L) 0.5 - 1.6 mmol/L 10/27/2024 6:17 AM EDT [facility] Blood, Arterial 10/27/2024 6 :09 AM EDT 10/27/2024 6:14 AM EDT Ben Blake MD LAB BLOOD ORDERABLES Final Re sult Performing Organization Address City/State/[facility] Co de Phone Number [facility] [address] * Transfuse Fresh Frozen Plasma (10/27/2024 [...] Glucose Monitoring Device (10/27/2024 4:46 AM EDT) [facility] POC Glucose Monitoring Device 124(H) 70 - 100 mg/dL 10/27/2024 4:47 AM EDT [facility] Blood 10/27/2024 4:46 AM EDT 10/27/2024 4:47 AM EDT Semaj Mcnair III, MD POINT OF CARE TEST ORDERABLES Final Result [facility] [address] [place] [address], [facility] * Transfuse Platelets (10/27/2024 [...] Blood Gas Panel (10/27/2024 3:07 AM EDT) [facility] O2Sat (ABGP) 100 10/27/2024 3:21 AM EDT [facility] pH (ABGP) 7.32(L) 7.35 - 7.45 10/27/2024 3:21 AM EDT [facility] PCO2 (ABGP) 38 35 - 45 mm Hg 10/27/2024 3:21 AM EDT [facility] PO2 (ABGP) 176(H) 80 - 100 mm Hg 10/27/2024 3:21 AM EDT [facility] HCO3 (ABGP) 20(L) 22 - 26 mmol/L 10/27/2024 3:21 AM EDT [facility] CO2 Content (ABGP) 21(L) 23 - 27 mmol/L 10/27/2024 3:21 AM EDT [facility] Base Excess (ABGP) -6.0(L) -2.0 - 3.0 mmol/L 10/27/2024 3:21 AM [facility] Sodium (ABGP) 138 136 - 146 mEq/L 10/27/2024 3:21 AM [facility] Potassium (ABGP) 3.0(L) 3.5 - 5.0 mEq/L 10/27/2024 3:21 AM [facility] Comment:In the event of in-v itro hemolysis, potassium results may be falsely elevated. Always interpret lab results in conjunction with clinical findings. If hemolysis is suspected, a serum sample may be collected for repeat assessment of potassium. Calcium, Free (ABGP) 5.28 4.50 - 5.30 mg/dL 10/27/2024 3:21 AM [facility] Glucose (ABGP) 108(H) 70 - 100 mg/dL 10/27/2024 3:21 AM [facility] Comment:There is interferenc e with whole blood glucose results on this method when Hematocrit is <25% or >60%. HCT (ABGP) 22.0(L) 40.0 - 52.0 % 10/27/2024 3:21 AM [facility] HGB (ABGP) 7.3(L) 14.0 - 18.0 g/dL 10/27/2024 3:21 AM [facility] %HBO2 (ABGP) 97.3 95.0 - 98.0 % 10/27/2024 3:21 AM [facility] Carboxyhgb (ABGP) 1.9 % 025 3:21 AM [facility] Comment: CARBOXYHEMOGLOBIN (CO) REFERENCE RANGES: Non-Smokers: <2 % Smokers: <8 % TOXIC: >20 % Methemoglobin (ABGP) 0.8 0.0 - 1.5 % 10/27/2024 3:21 AM [facility] Reduced Hemoglobin (ABGP) 0.0 0.0 - 5.0 % 10/27/2024 3:21 AM [facility] Lactic Acid (ABGP) 0.3(L) 0.5 - 1.6 mmol/L 10/27/2024 3:21 AM [facility] Blood, Arterial 10/27/2024 3 :07 AM EDT 10/27/2024 3:14 AM EDT us Ben Blake MD LAB BLOOD ORDERABLES Final Re sult [facility] [address] [place] [address], [facility] * Surgical Pathology Exam (10/27/2024 2:38 AM EDT) Tissue LEFT KIDNEY STRUCTURE / Unknown 10/27/2024 2:38 AM EDT Narrative [facility] - 10/27/2024 12:00 AM EDT CASE: [id number] PATIENT: BLAIR GILBERT Clinical History: Transplant kidney with bile duct reconstruction Pre-Operative Diagnosis: Acute kidney injury superimposed on CKD Post-Operative Diagnosis: None Given Specimen(s) Submitted: A. baseline renal biopsy ; B. right lobe liver biopsy; C. left lobe liver biopsy CPT Code(s): 33971 X 1; 68815 X 2; 35401 X 4 Additional Information: FINAL DIAGNOSIS: A. [...] Pathologist signing this report is located at [facility], [address] [place] [address], [id number], , CLIA ID: [id number] ADDENDUM: A. Kidney, allograft, baseline, wedge biopsy: [...] Pathologist signing this report is located at [facility], [address] [place] [address], [phone], , CLIA ID: [id number] us Kemar Sahni MD PATHOLOGY/CYTOLOGY ORDERABL ES Edited Result - Final [facility] * Anaerobic culture (10/27/2024 2:15 AM EDT) Culture Result No Anaerobes Isolated in 5 Days [facility] Fluid SPECIMEN FROM KIDNEY / Unknown 10/27/2024 2:15 AM EDT 10/27/2024 4:24 AM EDT Narrative [facility] - 10/31/2024 11:43 AM EDT 1) perfusate us Semaj Mcnair III, MD MICROBIOLOGY - GENE RAL ORDERABLES Final Result Performing Organization Address [facility] Co de Phone Number [facility] [address] [facility]. [address] * Fungus culture (10/27/2024 2:15 AM EDT) Culture Result No Fungus Isolated At 4 Weeks [facility] Fluid SPECIMEN FROM KIDNEY / Unknown 10/27/2024 2:15 AM EDT 10/27/2024 4:24 AM EDT Narrative [facility] - 11/24/2024 7:52 AM EDT 1) perfusate us Semaj Mcnair III, MD MICROBIOLOGY - GENE RAL ORDERABLES Final Result Performing Organization Address [facility] Co de Phone Number [facility] [address] [facility]. [address] * Routine Culture plus Stain (10/27/2024 2:15 AM EDT) Gram Stain Result No Polymorphonuclear Leukocytes Seen [facility] Gram Stain Result No Organisms Seen; [facility] Culture Result No Growth After 3 Days [facility] Fluid SPECIMEN FROM KIDNEY / Unknown 10/27/2024 2:15 AM EDT 10/27/2024 4:24 AM EDT Narrative [facility] - 10/30/2024 9:26 AM EDT 1) perfusate us Semaj Mcnair III, MD MICROBIOLOGY - GENE RAL ORDERABLES Final Result [facility] [address] [place] [address], [facility] * Transfuse Platelets Transfusion Rate: Per dept routine (10/27/2024 1:52 AM EDT) John Pina MD NURSING TREATMENT ORDERABLES - BLOOD ADMIN Final Result Performing Organization Address City/[facility]/ZIP Co de Phone Number EXTERNAL * Transfuse Platelets Transfusion Rate: Per dept routine, 1 Units (10/27/2024 1:52 AM EDT) John Pina MD NURSING TREATMENT ORDERABLES - BLOOD ADMIN Final Result Performing Organization Address City/[facility] Co de Phone Number EXTERNAL * (ABNORMAL) TEG-Standard Global Hemostasis (Rapid TEG with Heparin Effect, Contains a Baseline TEG) (10/27/2024 1:51 AM EDT) [facility] Citrated Kaolin Reaction Time (TEGHEPARINASE) 10.6(H) 4.6 - 9.1 minutes 10/27/2024 2:44 AM EDT [facility] Citrated Rapid Teg Maximum Amplitude (TEGHEPARINASE) 42.3(L) 52.0 - 70.0 mm 10/27/2024 2:44 AM EDT [facility] Citrated Functional Fibrinogen Maximum Amplitude (TEGHEPARINASE) 15.0 15.0 - 32.0 mm 10/27/2024 2:44 AM EDT [facility] Citrated Kaolin W/Heparinase Reaction Time (TEGHEPARINASE) 10.5(H) 4.3 - 8.3 minutes 10/27/2024 2:44 AM EDT [facility] Citrated Kaolin K-Time (TEGHEPARINASE) 2.9(A) 0.8 - 2.1 minutes 10/27/2024 2:44 AM EDT [facility] Citrated Kaolin Angle (TEGHEPARINASE) 60.4(A) 63.0 - 78.0 degrees 10/27/2024 2:44 AM EDT [facility] Citrated Kaolin Maximum Amplitude (TEGHEPARINASE) 42.9(L) 52.0 - 69.0 mm 10/27/2024 2:44 AM EDT [facility] Citrated Functional Fibrinogen- Fibrinogen Level (TEGHEPARINASE) 273.7(L) 278.0 - 581.0 mg/dL 10/27/2024 2:44 AM EDT [facility] Whole Blood (Citrate) 10/27/2024 1:51 AM EDT 10/27/2024 2:03 AM EDT John Pina MD LAB BLOOD ORDERABLES Final Resu lt Performing Organization Address [facility] Co de Phone Number [facility] [address] * (ABNORMAL) POC Glucose Monitoring Device (10/27/2024 1:50 AM EDT) POC Glucose Monitoring Device 121(H) 70 - 100 mg/dL 10/27/2024 1:51 AM EDT [facility] Blood 10/27/2024 1:50 AM EDT 10/27/2024 1:51 AM EDT us Semaj Mcnair III, MD POINT OF CARE TEST ORDERABLES Final Result Performing Organization Address [facility] Co de Phone Number [facility] [address] * Transfuse Cryoprecipitate Transfusion Rate: Per dept routine (10/27/2024 1:25 AM EDT) John Pina MD NURSING TREATMENT ORDERABLES - BLOOD ADMIN Final Result Performing Organization Address City/[facility] Co de Phone Number EXTERNAL * Transfuse Cryoprecipitate Transfusion Rate: Per dept routine, 1 Units (10/27/2024 1:25 AM EDT) us John Pina MD NURSING TREATMENT ORDERABLES - BLOOD ADMIN Final Result Performing Organization Address [facility] Co de Phone Number EXTERNAL * (ABNORMAL) POC Glucose Monitoring Device (10/27/2024 1:21 AM EDT) POC Glucose Monitoring Device 123(H) 70 - 100 mg/dL 10/27/2024 1:22 AM EDT [facility] Blood 10/27/2024 1:21 AM EDT 10/27/2024 1:21 AM EDT us Semaj Mcnair III, MD POINT OF CARE TEST ORDERABLES Final Result Performing Organization Address [facility] Co de Phone Number [facility] [address] * Transfuse Fresh Frozen Plasma Transfusion Rate: Per dept routine (10/27/2024 1:03 AM EDT) us John Pina MD NURSING TREATMENT ORDERABLES - BLOOD ADMIN Final Result Performing Organization Address [facility] de Phone Number EXTERNAL * Transfuse Fresh Frozen Plasma Transfusion Rate: Per dept routine, 1 Units (10/27/2024 1:03 AM EDT) us John Pina MD NURSING TREATMENT ORDERABLES - BLOOD ADMIN Final Result Performing Organization Address [facility] de Phone Number EXTERNAL * Calcium Free, Serum (10/27/2024 12:13 AM EDT) Free Calcium, Ser 5.20 4.40 - 5.40 mg/dL 10/27/2024 12:37 AM EDT [facility] Comment:Free calcium levels vary inversely with pH by approximately 5% for each 0.1 unit of pH change. Assay results have been normalized to pH = 7.40. Serum 10/27/2024 12:1 3 AM EDT 10/27/2024 12:29 AM EDT Narrative [facility] - 10/27/2024 12:37 AM EDT This [...] ORDERABLES Final Resu lt Performing Organization Address [facility] de Phone Number [facility] [address] [place] [address], [facility] * (ABNORMAL) Blood Gas, Arterial, STAT (10/27/2024 12:13 AM EDT) O2 Sat, Arterial 100 10/27/2024 12:23 AM EDT [facility] FIO2 30 10/27/2024 12:23 AM EDT [facility] pH, Arterial 7.32(L) 7.35 - 7.45 10/27/2024 12:23 AM EDT [facility] pCO2, Arterial 37 35 - 45 mm Hg 10/27/2024 12:23 AM EDT [facility] pO2, Arterial 137(H) 80 - 100 mm Hg 10/27/2024 12:23 AM EDT [facility] HCO3, Arterial 20(L) 22 - 26 mmol/L 10/27/2024 12:23 AM EDT [facility] CO2 Content,Arteri al 20(L) 23 - 27 mmol/L 10/27/2024 12:23 AM EDT [facility] Base Excess, Arterial -6.4(L) -2.0 - 3.0 mmol/L 10/27/2024 12:23 AM EDT [facility] %HBO2, Arterial 96.2 95.0 - 98.0 % 10/27/2024 12:23 AM EDT [facility] Carboxyhemoglo bin, Arterial 1.9 % 10/27/2024 12:23 AM EDT [facility] Comment: CARBOXYHEMOGLOBIN (CO) REFERENCE RANGES: Non-Smokers: <2 % Smokers: <8 % TOXIC: >20 % Methemoglobin, Arterial 1.5 0.0 - 1.5 % 10/27/2024 12:23 AM EDT [facility] Reduced hemoglobin, Arterial 0.4 0.0 - 5.0 % 10/27/2024 12:23 AM EDT [facility] Blood, Arterial 10/27/2024 1 2:13 AM EDT 10/27/2024 12:18 AM EDT us John Pina MD LAB BLOOD ORDERABLES Final Resu lt [facility] [address] * (ABNORMAL) TEG-Bypass/ECMO/Liver HN (Factor function, Platelet/Fibrin Clot Strength w/Clot Breakdown, Heparinase In All Channels) (10/27/2024 12:13 AM EDT) Citrated Kaolin Reaction Time (TEGECMOLIVER) 9.1 4.6 - 9.1 minutes 10/27/2024 1:43 AM EDT [facility] Citrated Kaolin W/Heparinase Reaction Time (TEGECMOLIVER) 9.7(H) 4.3 - 8.3 minutes 10/27/2024 1:43 AM EDT [facility] Citrated Kaolin Maximum Amplitude (TEGECMOLIVER) <40.0(L) 52.0 - 69.0 mm 10/27/2024 1:43 AM EDT [facility] Citrated Functional Fibrinogen W/Heparinase Maximum Amplitude(TEGEC MOLIVER) 11.9(L) 15.0 - 34.0 mm 10/27/2024 1:43 AM EDT [facility] Citrated Rapid Teg W/Heparinase Maximum Amplitude (TEGECMOLIVER) 31.6(L) 53.0 - 69.0 mm 10/27/2024 1:43 AM EDT [facility] Citrated Kaolin w/Heparinase Percent Lysis (TEGECMOLIVER) 0.0 0.0 - 3.2 % 10/27/2024 1:43 AM EDT [facility] Whole Blood (Citrate) 10/27/2024 12:13 AM EDT 10/27/2024 12:18 AM EDT us Kemar Sahni MD LAB BLOOD ORDERABLES Final Result [facility] [address] * (ABNORMAL) Lactic Acid (10/27/2024 12:13 AM EDT) Lactate 0.2(L) 0.5 - 2.2 mmol/L 10/27/2024 12:59 AM EDT [facility] Plasma 10/27/2024 12:1 3 AM EDT 10/27/2024 12:31 AM EDT Kemar Sahni MD LAB BLOOD ORDERABLES Final Result Performing Organization Address City/[facility]/ZIP Co de Phone Number [facility] [address] * Magnesium (10/27/2024 12:13 AM EDT) Magnesium 1.8 1.5 - 2.5 mg/dL 10/27/2024 12:52 AM EDT [facility] Plasma 10/27/2024 12:1 3 AM EDT 10/27/2024 12:29 AM EDT Kemar Sahni MD LAB BLOOD ORDERABLES Final Result Performing Organization Address [facility] Co de Phone Number [facility] [address] * (ABNORMAL) Hepatic Function Panel (10/27/2024 12:13 AM EDT) Total Bilirubin 1.6(H) 0.0 - 1.5 mg/dL 10/27/2024 12:52 AM EDT [facility] Bilirubin, Direct 1.17(H) 0.00 - 0.40 mg/dL 10/27/2024 12:52 AM EDT [facility] AST 157(H) 13 - 39 U/L 10/27/2024 12:52 AM EDT [facility] ALT 261(H) 7 - 52 U/L 10/27/2024 12:52 AM EDT [facility] Alkaline Phosphatase 26(L) 36 - 125 U/L 10/27/2024 12:52 AM EDT [facility] Total Protein 3.8(L) 6.4 - 8.9 g/dL 10/27/2024 12:52 AM EDT [facility] Albumin 2.8(L) 3.5 - 5.7 g/dL 10/27/2024 12:52 AM EDT [facility] Bilirubin, Indirect 0.43 0.00 - 1.10 mg/dL 10/27/2024 12:52 AM EDT [facility] Plasma 10/27/2024 12:1 3 AM EDT 10/27/2024 12:29 AM EDT Kemar Sahni MD LAB BLOOD ORDERABLES Final Result Performing Organization Address [facility] Co de Phone Number [facility] [address] [facility] * (ABNORMAL) Protime-INR (10/27/2024 12:13 AM EDT) Protime 18.6(H) 12.1 - 15.1 seconds 10/27/2024 12:43 AM EDT [facility] INR 1.5(H) 0.9 - 1.1 10/27/2024 12:43 AM EDT [facility] Comment: RECOMMENDED THERAPEUTIC RANGES USING INR : Stable oral anticoagulant therapy: 2.0 - 3.0 Mechanical prosthetic heart valve: 2.5 - 3.5 Recurrent acute myocardial infarction: 2.5 - 3.5 Plasma 10/27/2024 12:1 3 AM EDT 10/27/2024 12:29 AM EDT Kemar Sahni MD LAB BLOOD ORDERABLES Final Result Performing Organization Address [facility] Co de Phone Number [facility] [address] [facility] * (ABNORMAL) CBC (10/27/2024 12:13 AM EDT) WBC 5.0 3.8 - 10.8 10E3/uL 10/27/2024 12:59 AM EDT [facility] RBC 2.70(L) 4.20 - 5.80 10E6/uL 10/27/2024 12:59 AM EDT [facility] Hemoglobin 8.5(L) 13.2 - 17.1 g/dL 10/27/2024 12:59 AM EDT [facility] Hematocrit 23.9(L) 38.5 - 50.0 % 10/27/2024 12:59 AM EDT [facility] MCV 88.5 80.0 - 100.0 fL 10/27/2024 12:59 AM EDT [facility] MCH 31.5 27.0 - 33.0 pg 10/27/2024 12:59 AM EDT [facility] MCHC 35.6 32.0 - 36.0 g/dL 10/27/2024 12:59 AM EDT [facility] RDW 20.6(H) 11.0 - 15.0 % 10/27/2024 12:59 AM EDT [facility] Platelets 35(L) 140 - 400 10E3/uL 10/27/2024 12:59 AM EDT [facility] Comment: CNV Specimen checked for clots. None detected. MPV 7.6 7.5 - 11.5 fL 10/27/2024 12:59 AM EDT [facility] Whole Blood 10/27/2024 12:1 3 AM EDT 10/27/2024 12:29 AM EDT us Kemar Sahni MD LAB BLOOD ORDERABLES Final Result [facility] [address] [place] [address], [facility] * (ABNORMAL) Renal Function Panel w/EGFR (10/27/2024 12:13 AM EDT) Sodium 141 133 - 146 mmol/L 10/27/2024 12:52 AM EDT [facility] Potassium 3.2(L) 3.5 - 5.3 mmol/L 10/27/2024 12:52 AM EDT [facility] Chloride 109 98 - 110 mmol/L 10/27/2024 12:52 AM EDT [facility] CO2 21 21 - 33 mmol/L 10/27/2024 12:52 AM EDT [facility] Anion Gap 11 3 - 16 mmol/L 10/27/2024 12:52 AM EDT [facility] BUN 64(H) 7 - 25 mg/dL 10/27/2024 12:52 AM EDT [facility] Creatinine 2.58(H) 0.60 - 1.30 mg/dL 10/27/2024 12:52 AM EDT [facility] Glucose 126(H) 70 - 100 mg/dL 10/27/2024 12:52 AM EDT [facility] Calcium 8.9 8.6 - 10.3 mg/dL 10/27/2024 12:52 AM EDT [facility] Phosphorus 5.3(H) 2.1 - 4.7 mg/dL 10/27/2024 12:52 AM EDT [facility] Albumin 2.8(L) 3.5 - 5.7 g/dL 10/27/2024 12:52 AM EDT [facility] Osmolality, Calculated 312(H) 278 - 305 mOsm/kg 10/27/2024 12:52 AM EDT [facility] EGFR 31 10/27/2024 12:52 AM EDT [facility] Comment:As of 2021, the estimated GFR [...] BLOOD ORDERABLES Final Result [facility] [address] [place] [address], [facility] * (ABNORMAL) POC Glucose Monitoring Device (10/27/2024 12:08 AM EDT) POC Glucose Monitoring Device 121(H) 70 - 100 mg/dL 10/27/2024 12:08 AM EDT [facility] Blood 10/27/2024 12:0 8 AM EDT 10/27/2024 12:08 AM EDT Semaj Mcnair III, MD POINT OF CARE TEST ORDERABLES Final Result Performing Organization Address [facility] Co de Phone Number [facility] [address] [place] [address]. [address] * (ABNORMAL) POC Glucose Monitoring Device (10/26/2024 11:15 PM EDT) POC Glucose Monitoring Device 120(H) 70 - 100 mg/dL 10/26/2024 11:15 PM EDT [facility] Blood 10/26/2024 11:1 5 PM EDT 10/26/2024 11:15 PM EDT Semaj Mcnair III, MD POINT OF CARE TEST ORDERABLES Final Result Performing Organization Address [facility] de Phone Number [address] * (ABNORMAL) TEG-Bypass/ECMO/Liver HN (Factor function, Platelet/Fibrin Clot Strength w/Clot Breakdown, Heparinase In All Channels) (10/26/2024 10:36 PM EDT) Citrated Kaolin Reaction Time (TEGECMOLIVER) 10.0(H) 4.6 - 9.1 minutes 10/26/2024 11:53 PM EDT [facility] Citrated Kaolin W/Heparinase Reaction Time (TEGECMOLIVER) 10.2(H) 4.3 - 8.3 minutes 10/26/2024 11:53 PM EDT [facility] Citrated Kaolin Maximum Amplitude (TEGECMOLIVER) <40.0(L) 52.0 - 69.0 mm 10/26/2024 11:53 PM EDT [facility] Citrated Functional Fibrinogen W/Heparinase Maximum Amplitude(TEGEC MOLIVER) 11.3(L) 15.0 - 34.0 mm 10/26/2024 11:53 PM EDT [facility] Citrated Rapid Teg W/Heparinase Maximum Amplitude (TEGECMOLIVER) 41.8(L) 53.0 - 69.0 mm 10/26/2024 11:53 PM EDT [facility] Citrated Kaolin w/Heparinase Percent Lysis (TEGECMOLIVER) 0.0 0.0 - 3.2 % 10/26/2024 11:53 PM EDT [facility] Whole Blood (Citrate) 10/26/2024 10:36 PM EDT 10/26/2024 10:43 PM EDT Kemar Sahni MD LAB BLOOD ORDERABLES Final Result Performing Organization Address [facility]/ZIP Co de Phone Number [facility] [address] * (ABNORMAL) POC Glucose Monitoring Device (10/26/2024 10:14 PM EDT) POC Glucose Monitoring Device 124(H) 70 - 100 mg/dL 10/26/2024 11:11 PM EDT [facility] Blood 10/26/2024 10:1 4 PM EDT 10/26/2024 11:11 PM EDT Semaj Mcnair III, MD POINT OF CARE TEST ORDERABLES Final Result [facility] [address] * (ABNORMAL) POC Glucose Monitoring Device (10/26/2024 9:16 PM EDT) POC Glucose Monitoring Device 119(H) 70 - 100 mg/dL 10/26/2024 9:18 PM EDT [facility] Blood 10/26/2024 9:16 PM EDT 10/26/2024 9:18 PM EDT Semaj Mcnair III, MD POINT OF CARE TEST ORDERABLES Final Result Performing Organization Address City/[facility]/ZIP Co de Phone Number [facility] [address] * (ABNORMAL) POC Glucose Monitoring Device (10/26/2024 8:05 PM EDT) POC Glucose Monitoring Device 113(H) 70 - 100 mg/dL 10/26/2024 8:06 PM EDT [facility] Blood 10/26/2024 8:05 PM EDT 10/26/2024 8:06 PM EDT Semaj Mcnair III, MD POINT OF CARE TEST ORDERABLES Final Result Performing Organization Address [facility] Co de Phone Number [facility] [address] * (ABNORMAL) POC Glucose Monitoring Device (10/26/2024 7:02 PM EDT) POC Glucose Monitoring Device 111(H) 70 - 100 mg/dL 10/26/2024 7:03 PM EDT [facility] Blood 10/26/2024 7:02 PM EDT 10/26/2024 7:03 PM EDT Semaj Mcnair III, MD POINT OF CARE TEST ORDERABLES Final Result Performing Organization Address City/[facility] Co de Phone Number [facility] [address] [place] [address] * Transfuse Cryoprecipitate Transfusion Rate: Per dept routine (10/26/2024 6:39 PM EDT) John Pina MD NURSING TREATMENT ORDERABLES - BLOOD ADMIN Final Result Performing Organization Address City/[facility]/ZIP Co de Phone Number EXTERNAL * Transfuse Cryoprecipitate Transfusion Rate: Per dept routine, 1 Units (10/26/2024 6:39 PM EDT) us John Pina MD NURSING TREATMENT ORDERABLES - BLOOD ADMIN Final Result Performing Organization Address City/[facility] Co de Phone Number EXTERNAL * (ABNORMAL) POC Glucose Monitoring Device (10/26/2024 6:33 PM EDT) POC Glucose Monitoring Device 110(H) 70 - 100 mg/dL 10/26/2024 6:34 PM EDT [facility] Blood 10/26/2024 6:33 PM EDT 10/26/2024 6:34 PM EDT us Semaj Mcnair III, MD POINT OF CARE TEST ORDERABLES Final Result Performing Organization Address [facility] Co de Phone Number [facility] [address] [facility]. [address] * Transfuse Cryoprecipitate Transfusion Rate: Per dept routine (10/26/2024 6:22 PM EDT) us John Pina MD NURSING TREATMENT ORDERABLES - BLOOD ADMIN Final Result Performing Organization Address [facility] de Phone Number EXTERNAL * Transfuse Cryoprecipitate Transfusion Rate: Per dept routine, 1 Units (10/26/2024 6:22 PM EDT) us John Pina MD NURSING TREATMENT ORDERABLES - BLOOD ADMIN Final Result Performing Organization Address [facility] de Phone Number EXTERNAL * (ABNORMAL) POC Glucose Monitoring Device (10/26/2024 6:17 PM EDT) POC Glucose Monitoring Device 104(H) 70 - 100 mg/dL 10/26/2024 6:18 PM EDT [facility] Blood 10/26/2024 6:17 PM EDT 10/26/2024 6:18 PM EDT us Semaj Mcnair III, MD POINT OF CARE TEST ORDERABLES Final Result Performing Organization Address [facility] Co de Phone Number [facility] [address] * (ABNORMAL) POC Glucose Monitoring Device (10/26/2024 4:58 PM EDT) Pathologist [facility] POC Glucose Monitoring Device 115(H) 70 - 100 mg/dL 10/26/2024 4:59 PM EDT [facility] Blood 10/26/2024 4:58 PM EDT 10/26/2024 4:58 PM EDT Semaj Mcnair III, MD POINT OF CARE TEST ORDERABLES Final Result Performing Organization Address [facility] Co de Phone Number [facility] [address] [place] [address] * (ABNORMAL) Calcium Free, Serum (10/26/2024 4:42 PM EDT) Pathologist [facility] Free Calcium, Ser 5.67(H) 4.40 - 5.40 mg/dL 10/26/2024 4:55 PM EDT [facility] Comment:Free calcium levels vary inversely with pH by approximately 5% for each 0.1 unit of pH change. Assay results have been normalized to pH = 7.40. Serum 10/26/2024 4:42 PM EDT 10/26/2024 4:47 PM EDT Narrative [facility] - 10/26/2024 4:55 PM EDT This [...] ORDERABLES Final Resu lt Performing Organization Address [facility] Co de Phone Number [facility] [address] [place] [address]. [address] * Repeat Crossmatch (Recipient Sample) (10/26/2024 4:42 PM EDT) Pathologist [facility] Repeat Cx - Recipient The request and specimen(s) for this test have been received and transported to the [facility] [place] at [address] [place] [address]. The [facility] will report results directly to the client. 10/26/2024 4:49 PM EDT [facility] Whole Blood 10/26/2024 4:42 PM EDT 10/26/2024 4:49 PM EDT Narrative [facility] - 10/26/2024 4:49 PM EDT To be sent to [facility] for Donor UNOS#[id number] cross match with Blair Gilbert Sveta Judge MD LAB BLOOD ORDERABLES Final Resu lt [facility] [address] * (ABNORMAL) Lactic Acid (10/26/2024 4:42 PM EDT) Lactate 0.3(L) 0.5 - 2.2 mmol/L 10/26/2024 5:19 PM EDT [facility] Plasma 10/26/2024 4:42 PM EDT 10/26/2024 4:47 PM EDT Kemar Sahni MD LAB BLOOD ORDERABLES Final Result [facility] [address] * Magnesium (10/26/2024 4:42 PM EDT) Magnesium 2.0 1.5 - 2.5 mg/dL 10/26/2024 5:24 PM EDT [facility] Plasma 10/26/2024 4:42 PM EDT 10/26/2024 4:47 PM EDT Kemar Sahni MD LAB BLOOD ORDERABLES Final Result [facility] [address] * (ABNORMAL) Hepatic Function Panel (10/26/2024 4:42 PM EDT) Total Bilirubin 2.3(H) 0.0 - 1.5 mg/dL 10/26/2024 5:24 PM EDT [facility] Bilirubin, Direct 1.85(H) 0.00 - 0.40 mg/dL 10/26/2024 5:24 PM EDT [facility] AST 374(H) 13 - 39 U/L 10/26/2024 5:24 PM EDT [facility] ALT 458(H) 7 - 52 U/L 10/26/2024 5:24 PM EDT [facility] Alkaline Phosphatase 39 36 - 125 U/L 10/26/2024 5:24 PM EDT [facility] Total Protein 3.8(L) 6.4 - 8.9 g/dL 10/26/2024 5:24 PM EDT [facility] Albumin 3.0(L) 3.5 - 5.7 g/dL 10/26/2024 5:24 PM EDT [facility] Bilirubin, Indirect 0.45 0.00 - 1.10 mg/dL 10/26/2024 5:24 PM EDT [facility] Plasma 10/26/2024 4:42 PM EDT 10/26/2024 4:47 PM EDT Kemar Sahni MD LAB BLOOD ORDERABLES Final Result [facility] [address] [facility]. [address] * (ABNORMAL) Protime-INR (10/26/2024 4:42 PM EDT) Protime 20.3(H) 12.1 - 15.1 seconds 10/26/2024 5:12 PM EDT [facility] INR 1.7(H) 0.9 - 1.1 10/26/2024 5:12 PM EDT [facility] Comment: RECOMMENDED THERAPEUTIC RANGES USING INR : Stable oral anticoagulant therapy: 2.0 - 3.0 Mechanical prosthetic heart valve: 2.5 - 3.5 Recurrent acute myocardial infarction: 2.5 - 3.5 Plasma 10/26/2024 4:42 PM EDT 10/26/2024 4:47 PM EDT Kemar Sahni MD LAB BLOOD ORDERABLES Final Result [facility] [address] [place] [address], [facility] * (ABNORMAL) CBC (10/26/2024 4:42 PM EDT) WBC 10.0 3.8 - 10.8 10E3/uL 10/26/2024 5:00 PM EDT [facility] RBC 3.44(L) 4.20 - 5.80 10E6/uL 10/26/2024 5:00 PM EDT [facility] Hemoglobin 10.5(L) 13.2 - 17.1 g/dL 10/26/2024 5:00 PM EDT [facility] Hematocrit 30.2(L) 38.5 - 50.0 % 10/26/2024 5:00 PM EDT [facility] MCV 87.7 80.0 - 100.0 fL 10/26/2024 5:00 PM EDT [facility] MCH 30.6 27.0 - 33.0 pg 10/26/2024 5:00 PM EDT [facility] MCHC 34.8 32.0 - 36.0 g/dL 10/26/2024 5:00 PM EDT [facility] RDW 20.1(H) 11.0 - 15.0 % 10/26/2024 5:00 PM EDT [facility] Platelets 48(L) 140 - 400 10E3/uL 10/26/2024 5:00 PM EDT [facility] Comment:Specimen checked for clots. None detected. MPV 7.9 7.5 - 11.5 fL 10/26/2024 5:00 PM EDT [facility] Whole Blood 10/26/2024 4:42 PM EDT 10/26/2024 4:47 PM EDT us Kemar Sahni MD LAB BLOOD ORDERABLES Final Result [facility] [address] [place] [address], [facility] * (ABNORMAL) Renal Function Panel w/EGFR (10/26/2024 4:42 PM EDT) Sodium 142 133 - 146 mmol/L 10/26/2024 5:24 PM EDT [facility] Potassium 3.3(L) 3.5 - 5.3 mmol/L 10/26/2024 5:24 PM EDT [facility] Chloride 109 98 - 110 mmol/L 10/26/2024 5:24 PM EDT [facility] CO2 23 21 - 33 mmol/L 10/26/2024 5:24 PM EDT [facility] Anion Gap 10 3 - 16 mmol/L 10/26/2024 5:24 PM EDT [facility] BUN 63(H) 7 - 25 mg/dL 10/26/2024 5:24 PM EDT [facility] Creatinine 2.85(H) 0.60 - 1.30 mg/dL 10/26/2024 5:24 PM EDT [facility] Glucose 127(H) 70 - 100 mg/dL 10/26/2024 5:24 PM EDT [facility] Calcium 8.9 8.6 - 10.3 mg/dL 10/26/2024 5:24 PM EDT [facility] Phosphorus 4.4 2.1 - 4.7 mg/dL 10/26/2024 5:24 PM EDT [facility] Albumin 3.0(L) 3.5 - 5.7 g/dL 10/26/2024 5:24 PM EDT [facility] Osmolality, Calculated 314(H) 278 - 305 mOsm/kg 10/26/2024 5:24 PM EDT [facility] EGFR 28 10/26/2024 5:24 PM EDT [facility] Comment:As of 2021, the estimated GFR [...] BLOOD ORDERABLES Final Result Performing Organization Address City/[facility]/ZIP Co de Phone Number [facility] [address] [facility]. [address] * (ABNORMAL) POC Glucose Monitoring Device (10/26/2024 3:54 PM EDT) POC Glucose Monitoring Device 126(H) 70 - 100 mg/dL 10/26/2024 3:55 PM EDT [facility] Blood 10/26/2024 3:54 PM EDT 10/26/2024 3:55 PM EDT Semaj Mcnair III, MD POINT OF CARE TEST ORDERABLES Final Result [facility] [address] [facility]. [address] * (ABNORMAL) POC Glucose Monitoring Device (10/26/2024 3:06 PM EDT) POC Glucose Monitoring Device 144(H) 70 - 100 mg/dL 10/26/2024 3:14 PM EDT [facility] Blood 10/26/2024 3:06 PM EDT 10/26/2024 3:13 PM EDT Semaj Mcnair III, MD POINT OF CARE TEST ORDERABLES Final Result [facility] [address] * (ABNORMAL) TEG-Bypass/ECMO/Liver HN (Factor function, Platelet/Fibrin Clot Strength w/Clot Breakdown, Heparinase In All Channels) (10/26/2024 3:03 PM EDT) [facility] Citrated Kaolin Reaction Time (TEGECMOLIVER) 8.2 4.6 - 9.1 minutes 10/26/2024 4:43 PM EDT [facility] Citrated Kaolin W/Heparinase Reaction Time (TEGECMOLIVER) 8.2 4.3 - 8.3 minutes 10/26/2024 4:43 PM EDT [facility] Citrated Kaolin Maximum Amplitude (TEGECMOLIVER) 41.7(L) 52.0 - 69.0 mm 10/26/2024 4:43 PM EDT [facility] Citrated Functional Fibrinogen W/Heparinase Maximum Amplitude(TEGEC MOLIVER) 11.4(L) 15.0 - 34.0 mm 10/26/2024 4:43 PM EDT [facility] Citrated Rapid Teg W/Heparinase Maximum Amplitude (TEGECMOLIVER) 38.6(L) 53.0 - 69.0 mm 10/26/2024 4:43 PM EDT [facility] Citrated Kaolin w/Heparinase Percent Lysis (TEGECMOLIVER) 0.0 0.0 - 3.2 % 10/26/2024 4:43 PM EDT [facility] Whole Blood (Citrate) 10/26/2024 3:03 PM EDT 10/26/2024 3:10 PM EDT us Jani Mooney MD LAB BLOOD ORDERABLES Final Resul t [facility] [address] * ECG 12 lead (MUSE) (10/26/2024 [...] ^ ^ Confirmed by MD HA, ERICK ([facility]) on 10/27/2024 10:09:25 AM Quinten Best MD ECG ORDERABLES Final Result Performing Organization Address [facility]/ZIP Co de Phone Number MUSE * (ABNORMAL) POC Glucose Monitoring Device (10/26/2024 2:00 PM EDT) POC Glucose Monitoring Device 183(H) 70 - 100 mg/dL 10/26/2024 2:01 PM EDT [facility] Blood 10/26/2024 2:00 PM EDT 10/26/2024 2:01 PM EDT Semaj Mcnair III, MD POINT OF CARE TEST ORDERABLES Final Result Performing Organization Address [facility] de Phone Number [facility] [address] [place] [address] * (ABNORMAL) POC Glucose Monitoring Device (10/26/2024 1:05 PM EDT) POC Glucose Monitoring Device 212(H) 70 - 100 mg/dL 10/26/2024 1:06 PM EDT [facility] Blood 10/26/2024 1:05 PM EDT 10/26/2024 1:06 PM EDT Semaj Mcnair III, MD POINT OF CARE TEST ORDERABLES Final Result Performing Organization Address [facility] Co de Phone Number [facility] [address] [place] [address] * Transfuse Cryoprecipitate Has consent been obtained? Yes; Transfusion Rate: Per dept routine (10/26/2024 12:25 PM EDT) Shay Sifuentes MD NURSING TREATMENT ORDERABLES - BLOOD ADMIN Final Result Performing Organization Address [facility] de Phone Number EXTERNAL * Transfuse Cryoprecipitate Has consent been obtained? Yes; Transfusion Rate: Per dept routine, 1 Units (10/26/2024 12:25 PM EDT) Shay Sifuentes MD NURSING TREATMENT ORDERABLES - BLOOD ADMIN Final Result Performing Organization Address [facility] de Phone Number EXTERNAL * (ABNORMAL) POC Glucose Monitoring Device (10/26/2024 12:06 PM EDT) POC Glucose Monitoring Device 226(H) 70 - 100 mg/dL 10/26/2024 12:07 PM EDT [facility] Blood 10/26/2024 12:0 6 PM EDT 10/26/2024 12:07 PM EDT Semaj Mcnair III, MD POINT OF CARE TEST ORDERABLES Final Result Performing Organization Address [facility] de Phone Number [facility] [address] * Transfuse Cryoprecipitate Transfusion Rate: Per dept routine (10/26/2024 12:01 PM EDT) John Pina MD NURSING TREATMENT ORDERABLES - BLOOD ADMIN Final Result Performing Organization Address [facility] de Phone Number EXTERNAL * Transfuse Cryoprecipitate Transfusion Rate: Per dept routine, 1 Units (10/26/2024 12:01 PM EDT) John Pina MD NURSING TREATMENT ORDERABLES - BLOOD ADMIN Final Result Performing Organization Address [facility] de Phone Number EXTERNAL * Lactic Acid (10/26/2024 10:48 AM EDT) Lactate 1.2 0.5 - 2.2 mmol/L 10/26/2024 11:27 AM EDT [facility] Plasma 10/26/2024 10:4 8 AM EDT 10/26/2024 10:53 AM EDT Kemar Sahni MD LAB BLOOD ORDERABLES Final Result [facility] [address] [facility]. [address] * Magnesium (10/26/2024 10:48 AM EDT) Magnesium 2.0 1.5 - 2.5 mg/dL 10/26/2024 11:26 AM EDT [facility] Plasma 10/26/2024 10:4 8 AM EDT 10/26/2024 10:53 AM EDT Kemar Sahni MD LAB BLOOD ORDERABLES Final Result Performing Organization Address [facility] Co de Phone Number [facility] [address] [facility]. [address] * (ABNORMAL) Hepatic Function Panel (10/26/2024 10:48 AM EDT) Total Bilirubin 5.9(H) 0.0 - 1.5 mg/dL 10/26/2024 11:26 AM EDT [facility] Bilirubin, Direct 4.74(H) 0.00 - 0.40 mg/dL 10/26/2024 11:26 AM EDT [facility] AST 872(H) 13 - 39 U/L 10/26/2024 11:26 AM EDT [facility] ALT 736(H) 7 - 52 U/L 10/26/2024 11:26 AM EDT [facility] Alkaline Phosphatase 56 36 - 125 U/L 10/26/2024 11:26 AM EDT [facility] Total Protein 3.5(L) 6.4 - 8.9 g/dL 10/26/2024 11:26 AM EDT [facility] Albumin 2.5(L) 3.5 - 5.7 g/dL 10/26/2024 11:26 AM EDT [facility] Bilirubin, Indirect 1.16(H) 0.00 - 1.10 mg/dL 10/26/2024 11:26 AM EDT [facility] Plasma 10/26/2024 10:4 8 AM EDT 10/26/2024 10:53 AM EDT Kemar Sahni MD LAB BLOOD ORDERABLES Final Result Performing Organization Address [facility] Co de Phone Number [facility] [address] [facility]. [address] * (ABNORMAL) Protime-INR (10/26/2024 10:48 AM EDT) Protime 23.0(H) 12.1 - 15.1 seconds 10/26/2024 11:26 AM EDT [facility] INR 2.0(H) 0.9 - 1.1 10/26/2024 11:26 AM EDT [facility] Comment: RECOMMENDED THERAPEUTIC RANGES USING INR : Stable oral anticoagulant therapy: 2.0 - 3.0 Mechanical prosthetic heart valve: 2.5 - 3.5 Recurrent acute myocardial infarction: 2.5 - 3.5 Plasma 10/26/2024 10:4 8 AM EDT 10/26/2024 10:53 AM EDT Kemar Sahni MD LAB BLOOD ORDERABLES Final Result Performing Organization Address [facility] Co de Phone Number [facility] [address] [facility]. [address] * (ABNORMAL) CBC (10/26/2024 10:48 AM EDT) WBC 17.3(H) 3.8 - 10.8 10E3/uL 10/26/2024 11:14 AM EDT [facility] RBC 4.22 4.20 - 5.80 10E6/uL 10/26/2024 11:14 AM EDT [facility] Hemoglobin 12.8(L) 13.2 - 17.1 g/dL 10/26/2024 11:14 AM EDT [facility] Hematocrit 37.2(L) 38.5 - 50.0 % 10/26/2024 11:14 AM EDT [facility] MCV 88.3 80.0 - 100.0 fL 10/26/2024 11:14 AM EDT [facility] MCH 30.4 27.0 - 33.0 pg 10/26/2024 11:14 AM EDT [facility] MCHC 34.4 32.0 - 36.0 g/dL 10/26/2024 11:14 AM EDT [facility] RDW 20.8(H) 11.0 - 15.0 % 10/26/2024 11:14 AM EDT [facility] Platelets 109(L) 140 - 400 10E3/uL 10/26/2024 11:14 AM EDT [facility] MPV 7.5 7.5 - 11.5 fL 10/26/2024 11:14 AM EDT [facility] Whole Blood 10/26/2024 10:4 8 AM EDT 10/26/2024 10:53 AM EDT Kemar Sahni MD LAB BLOOD ORDERABLES Final Result [facility] [address] * (ABNORMAL) Blood gas, arterial (10/26/2024 10:48 AM EDT) O2 Sat, Arterial 97 10/26/2024 10:54 AM EDT [facility] FIO2 35% 10/26/2024 10:54 AM EDT [facility] pH, Arterial 7.37 7.35 - 7.45 10/26/2024 10:54 AM EDT [facility] pCO2, Arterial 36 35 - 45 mm Hg 10/26/2024 10:54 AM EDT [facility] pO2, Arterial 91 80 - 100 mm Hg 10/26/2024 10:54 AM EDT [facility] HCO3, Arterial 22 22 - 26 mmol/L 10/26/2024 10:54 AM EDT [facility] CO2 Content,Arteri al 22(L) 23 - 27 mmol/L 10/26/2024 10:54 AM EDT [facility] Base Excess, Arterial -3.9(L) -2.0 - 3.0 mmol/L 10/26/2024 10:54 AM EDT [facility] %HBO2, Arterial 94.8(L) 95.0 - 98.0 % 10/26/2024 10:54 AM EDT [facility] Carboxyhemoglo bin, Arterial 1.9 % 10/26/2024 10:54 AM EDT [facility] Comment: CARBOXYHEMOGLOBIN (CO) REFERENCE RANGES: Non-Smokers: <2 % Smokers: <8 % TOXIC: >20 % Methemoglobin, Arterial 0.7 0.0 - 1.5 % 10/26/2024 10:54 AM EDT [facility] Reduced hemoglobin, Arterial 2.5 0.0 - 5.0 % 10/26/2024 10:54 AM EDT [facility] Blood, Arterial 10/26/2024 1 0:48 AM EDT 10/26/2024 10:52 AM EDT us Shay Sifuentes MD LAB BLOOD ORDERABLES Final Resu lt [facility] [address] * (ABNORMAL) Renal Function Panel w/EGFR (10/26/2024 10:48 AM EDT) Sodium 139 133 - 146 mmol/L 10/26/2024 11:26 AM EDT [facility] Potassium 2.9(LL) 3.5 - 5.3 mmol/L 10/26/2024 11:26 AM EDT [facility] Comment:K CRITICAL VALUE WAS PREVIOUSLY CALLED Chloride 107 98 - 110 mmol/L 10/26/2024 11:26 AM EDT [facility] CO2 22 21 - 33 mmol/L 10/26/2024 11:26 AM EDT [facility] Anion Gap 10 3 - 16 mmol/L 10/26/2024 11:26 AM EDT [facility] BUN 61(H) 7 - 25 mg/dL 10/26/2024 11:26 AM EDT [facility] Creatinine 2.78(H) 0.60 - 1.30 mg/dL 10/26/2024 11:26 AM EDT [facility] Glucose 253(H) 70 - 100 mg/dL 10/26/2024 11:26 AM EDT [facility] Calcium 8.8 8.6 - 10.3 mg/dL 10/26/2024 11:26 AM EDT [facility] Phosphorus 4.1 2.1 - 4.7 mg/dL 10/26/2024 11:26 AM EDT [facility] Albumin 2.5(L) 3.5 - 5.7 g/dL 10/26/2024 11:26 AM EDT [facility] Osmolality, Calculated 314(H) 278 - 305 mOsm/kg 10/26/2024 11:26 AM EDT [facility] EGFR 28 10/26/2024 11:26 AM EDT [facility] Comment:As of 2021, the estimated GFR [...] BLOOD ORDERABLES Final Result [facility] [address] [place] [address], [facility] * (ABNORMAL) POC Glucose Monitoring Device (10/26/2024 10:47 AM EDT) POC Glucose Monitoring Device 234(H) 70 - 100 mg/dL 10/26/2024 10:48 AM EDT [facility] Blood 10/26/2024 10:4 7 AM EDT 10/26/2024 10:48 AM EDT us Semaj Mcnair III, MD POINT OF CARE TEST ORDERABLES Final Result Performing Organization Address [facility] Co de Phone Number [facility] [address] [facility]. [address] * CARISA Rhythm Strip - Scan (10/26/2024 10:45 AM EDT) us Scanning [employer] SCAN DOCS - NO RESULTS Final Res ult * (ABNORMAL) POC Glucose Monitoring Device (10/26/2024 10:08 AM EDT) POC Glucose Monitoring Device 235(H) 70 - 100 mg/dL 10/26/2024 10:09 AM EDT [facility] Blood 10/26/2024 10:0 8 AM EDT 10/26/2024 10:09 AM EDT us Semaj Mcnair III, MD POINT OF CARE TEST ORDERABLES Final Result Performing Organization Address [facility]/[place] [facility] Phone Number [facility] [address] [facility]. [address] * (ABNORMAL) POC Glucose Monitoring Device (10/26/2024 8:57 AM EDT) POC Glucose Monitoring Device 232(H) 70 - 100 mg/dL 10/26/2024 8:59 AM EDT [facility] Blood 10/26/2024 8:57 AM EDT 10/26/2024 8:58 AM EDT us Semaj Mcnair III, MD POINT OF CARE TEST ORDERABLES Final Result Performing Organization Address City/[facility] Co de Phone Number [facility] [address] [facility]. [address] * ECG 12 lead (MUSE) (10/26/2024 [...] ECG ^ ^ Confirmed by MD HA, [facility]ENT[facility]ady ([id number]) on 10/27/2024 10:09:18 AM us Shay [...] Glucose Monitoring Device (10/26/2024 7:59 AM EDT) [facility] POC Glucose Monitoring Device 229(H) 70 - 100 mg/dL 10/26/2024 8:01 AM EDT [facility] Blood 10/26/2024 7:59 AM EDT 10/26/2024 8:00 AM EDT Semaj Mcnair III, MD POINT OF CARE TEST ORDERABLES Final Result [facility] [address] [place], [place] [address] * (ABNORMAL) TEG-Bypass/ECMO/Liver HN (Factor function, Platelet/Fibrin Clot Strength w/Clot Breakdown, Heparinase In All Channels) (10/26/2024 7:59 AM EDT) [facility] Signature Citrated Kaolin Reaction Time (TEGECMOLIVER) 8.2 4.6 - 9.1 minutes 10/26/2024 10:36 AM EDT [facility] Citrated Kaolin W/Heparinase Reaction Time (TEGECMOLIVER) 8.1 4.3 - 8.3 minutes 10/26/2024 10:36 AM EDT [facility] Citrated Kaolin Maximum Amplitude (TEGECMOLIVER) 46.8(L) 52.0 - 69.0 mm 10/26/2024 10:36 AM EDT [facility] Citrated Functional Fibrinogen W/Heparinase Maximum Amplitude(TEGEC MOLIVER) 10.5(L) 15.0 - 34.0 mm 10/26/2024 10:36 AM EDT [facility] Citrated Rapid Teg W/Heparinase Maximum Amplitude (TEGECMOLIVER) 45.5(L) 53.0 - 69.0 mm 10/26/2024 10:36 AM EDT [facility] Citrated Kaolin w/Heparinase Percent Lysis (TEGECMOLIVER) 0.0 0.0 - 3.2 % 10/26/2024 10:36 AM EDT [facility] Whole Blood (Citrate) 10/26/2024 7:59 AM EDT 10/26/2024 8:05 AM EDT Shay Sifuentes MD LAB BLOOD ORDERABLES Final Resu lt Performing Organization Address City/[facility]/ZIP Co de Phone Number [facility] [address] * (ABNORMAL) POC Glucose Monitoring Device (10/26/2024 6:12 AM EDT) POC Glucose Monitoring Device 196(H) 70 - 100 mg/dL 10/26/2024 6:13 AM EDT [facility] Blood 10/26/2024 6:12 AM EDT 10/26/2024 6:13 AM EDT Semaj Mcnair III, MD POINT OF CARE TEST ORDERABLES Final Result [facility] [address] * Lactic Acid (10/26/2024 6:10 AM EDT) Lactate 1.2 0.5 - 2.2 mmol/L 10/26/2024 6:39 AM EDT [facility] Plasma 10/26/2024 6:10 AM EDT 10/26/2024 6:19 AM EDT us Sveta Judge MD LAB BLOOD ORDERABLES Final Resu lt [facility] [address] * (ABNORMAL) Fibrinogen (10/26/2024 6:10 AM EDT) Fibrinogen 160(L) 218 - 406 mg/dL 10/26/2024 6:41 AM EDT [facility] Plasma 10/26/2024 6:10 AM EDT 10/26/2024 6:26 AM EDT Sveta Judge MD LAB BLOOD ORDERABLES Final Resu lt Performing Organization Address [facility] Co de Phone Number [facility] [address] * (ABNORMAL) Protime-INR (10/26/2024 6:10 AM EDT) Protime 25.0(H) 12.1 - 15.1 seconds 10/26/2024 6:41 AM EDT [facility] INR 2.2(H) 0.9 - 1.1 10/26/2024 6:41 AM EDT [facility] Comment: RECOMMENDED THERAPEUTIC RANGES USING INR : Stable oral anticoagulant therapy: 2.0 - 3.0 Mechanical prosthetic heart valve: 2.5 - 3.5 Recurrent acute myocardial infarction: 2.5 - 3.5 Plasma 10/26/2024 6:10 AM EDT 10/26/2024 6:26 AM EDT Sveta Judge MD LAB BLOOD ORDERABLES Final Resu lt Performing Organization Address City/[facility]/ZIP Co de Phone Number [facility] [address] [facility]. [address] * (ABNORMAL) Blood gas, arterial (10/26/2024 6:10 AM EDT) O2 Sat, Arterial 98 10/26/2024 6:23 AM EDT [facility] FIO2 60 10/26/2024 6:23 AM EDT [facility] pH, Arterial 7.27(L) 7.35 - 7.45 10/26/2024 6:23 AM EDT [facility] pCO2, Arterial 47(H) 35 - 45 mm Hg 10/26/2024 6:23 AM EDT [facility] pO2, Arterial 127(H) 80 - 100 mm Hg 10/26/2024 6:23 AM EDT [facility] HCO3, Arterial 21(L) 22 - 26 mmol/L 10/26/2024 6:23 AM EDT [facility] CO2 Content,Arteri al 23 23 - 27 mmol/L 10/26/2024 6:23 AM EDT [facility] Base Excess, Arterial -5.4(L) -2.0 - 3.0 mmol/L 10/26/2024 6:23 AM EDT [facility] %HBO2, Arterial 94.6(L) 95.0 - 98.0 % 10/26/2024 6:23 AM EDT [facility] Carboxyhemoglo bin, Arterial 2.0 % 10/26/2024 6:23 AM EDT [facility] Comment: CARBOXYHEMOGLOBIN (CO) REFERENCE RANGES: Non-Smokers: <2 % Smokers: <8 % TOXIC: >20 % Methemoglobin, Arterial 1.6(H) 0.0 - 1.5 % 10/26/2024 6:23 AM EDT [facility] Reduced hemoglobin, Arterial 1.8 0.0 - 5.0 % 10/26/2024 6:23 AM EDT [facility] Blood, Arterial 10/26/2024 6 :10 AM EDT 10/26/2024 6:20 AM EDT us Sveta Judge MD LAB BLOOD ORDERABLES Final Resu lt [facility] [address] [place] [address], [facility] * Magnesium (10/26/2024 6:10 AM EDT) Magnesium 1.5 1.5 - 2.5 mg/dL 10/26/2024 7:09 AM EDT [facility] Plasma 10/26/2024 6:10 AM EDT 10/26/2024 6:23 AM EDT Sveta Judge MD LAB BLOOD ORDERABLES Final Resu lt [facility] [address] * (ABNORMAL) Hepatic Function Panel (10/26/2024 6:10 AM EDT) Total Bilirubin 6.2(H) 0.0 - 1.5 mg/dL 10/26/2024 7:11 AM EDT [facility] Bilirubin, Direct 5.26(H) 0.00 - 0.40 mg/dL 10/26/2024 7:11 AM EDT [facility] AST 1,071(H) 13 - 39 U/L 10/26/2024 7:11 AM EDT [facility] ALT 805(H) 7 - 52 U/L 10/26/2024 7:11 AM EDT [facility] Alkaline Phosphatase 55 36 - 125 U/L 10/26/2024 7:11 AM EDT [facility] Total Protein <3.0(L) 6.4 - 8.9 g/dL 10/26/2024 7:11 AM EDT [facility] Albumin 1.9(L) 3.5 - 5.7 g/dL 10/26/2024 7:11 AM EDT [facility] Bilirubin, Indirect 0.94 0.00 - 1.10 mg/dL 10/26/2024 7:11 AM EDT [facility] Plasma 10/26/2024 6:10 AM EDT 10/26/2024 6:23 AM EDT Sveta Judge MD LAB BLOOD ORDERABLES Final Resu lt [facility] [address] * (ABNORMAL) Renal Function Panel w/EGFR (10/26/2024 6:10 AM EDT) Sodium 141 133 - 146 mmol/L 10/26/2024 7:09 AM EDT [facility] Potassium 2.8(LL) 3.5 - 5.3 mmol/L 10/26/2024 7:09 AM EDT [facility] Comment:Critical value previ ously called. Chloride 106 98 - 110 mmol/L 10/26/2024 7:09 AM EDT [facility] CO2 25 21 - 33 mmol/L 10/26/2024 7:09 AM EDT [facility] Anion Gap 10 3 - 16 mmol/L 10/26/2024 7:09 AM EDT [facility] BUN 57(H) 7 - 25 mg/dL 10/26/2024 7:09 AM EDT [facility] Creatinine 2.70(H) 0.60 - 1.30 mg/dL 10/26/2024 7:09 AM EDT [facility] Glucose 210(H) 70 - 100 mg/dL 10/26/2024 7:09 AM EDT [facility] Calcium 8.7 8.6 - 10.3 mg/dL 10/26/2024 7:09 AM EDT [facility] Phosphorus 5.4(H) 2.1 - 4.7 mg/dL 10/26/2024 7:09 AM EDT [facility] Albumin 1.9(L) 3.5 - 5.7 g/dL 10/26/2024 7:11 AM EDT [facility] Osmolality, Calculated 314(H) 278 - 305 mOsm/kg 10/26/2024 7:09 AM EDT [facility] EGFR 29 10/26/2024 7:09 AM T [facility] Comment:As of 2021, the estimated GFR [...] BLOOD ORDERABLES Final Resu lt [facility] [address] [place] [id number] * (ABNORMAL) CBC (10/26/2024 6:10 AM EDT) WBC 14.8(H) 3.8 - 10.8 10E3/uL 10/26/2024 6:46 AM EDT [facility] RBC 4.04(L) 4.20 - 5.80 10E6/uL 10/26/2024 6:46 AM EDT [facility] Hemoglobin 12.7(L) 13.2 - 17.1 g/dL 10/26/2024 6:46 AM EDT [facility] Hematocrit 35.9(L) 38.5 - 50.0 % 10/26/2024 6:46 AM EDT [facility] MCV 89.0 80.0 - 100.0 fL 10/26/2024 6:46 AM EDT [facility] MCH 31.3 27.0 - 33.0 pg 10/26/2024 6:46 AM EDT [facility] MCHC 35.2 32.0 - 36.0 g/dL 10/26/2024 6:46 AM EDT [facility] RDW 19.7(H) 11.0 - 15.0 % 10/26/2024 6:46 AM EDT [facility] Platelets 107(L) 140 - 400 10E3/uL 10/26/2024 6:46 AM EDT [facility] MPV 7.4(L) 7.5 - 11.5 fL 10/26/2024 6:46 AM EDT [facility] Whole Blood 10/26/2024 6:10 AM EDT 10/26/2024 6:26 AM EDT Sveta Judge MD LAB BLOOD ORDERABLES Final Resu lt Performing Organization Address [facility] Co de Phone Number [facility] [address] [facility]. [address] * (ABNORMAL) POC INR (10/26/2024 5:16 AM EDT) Prothrombin Time INR, POC 2.4(H) 0.8 - 1.4 10/27/2024 6:51 AM EDT [facility] Comment: Test results may vary using [...] TEST ORDERABLES Final Result Performing Organization Address [facility] Co de Phone Number [facility] [address] [facility]. [address] * POC Sample Type (10/26/2024 5:14 AM EDT) Pathologist [facility] POC Sample Type Arterial 10/26/2024 5:31 AM EDT [facility] Blood, Arterial 10/26/2024 5 :14 AM EDT 10/26/2024 5:31 AM EDT Semaj Mcnair III, MD POINT OF CARE TEST ORDERABLES Final Result Performing Organization Address City/[facility]/ZIP Co de Phone Number [facility] [address] [place] [facility]. [address] * POC Anion Gap (10/26/2024 5:14 AM EDT) POC Anion Gap, Arterial 12 3 - 16 mmol/L 10/26/2024 5:31 AM EDT [facility] Blood, Arterial 10/26/2024 5 :14 AM EDT 10/26/2024 5:31 AM EDT us Semaj Mcnair III, MD POINT OF CARE TEST ORDERABLES Final Result Performing Organization Address City/[facility]/ZIP Co de Phone Number [facility] [address] [facility]. [address] * POC Chloride (10/26/2024 5:14 AM EDT) POC Chloride 104 98 - 110 mmol/L 10/26/2024 5:31 AM EDT [facility] Blood, Arterial 10/26/2024 5 :14 AM EDT 10/26/2024 5:31 AM EDT us Semaj Mcnair III, MD POINT OF CARE TEST ORDERABLES Final Result Performing Organization Address [facility]/ZIP Co de Phone Number [facility] [address] * (ABNORMAL) POC Hemoglobin (10/26/2024 5:14 AM EDT) POC Hemoglobin 9.5(L) 14.0 - 18.0 g/dL 10/26/2024 5:31 AM EDT [facility] Blood, Arterial 10/26/2024 5 :14 AM EDT 10/26/2024 5:31 AM EDT us Semaj Mcnair III, MD POINT OF CARE TEST ORDERABLES Final Result [facility] [address] [place] [address]. [address] * (ABNORMAL) POC hematocrit (10/26/2024 5:14 AM EDT) POC Hematocrit 28.0(L) 40 - 52 % 10/26/2024 5:31 AM EDT [facility] Blood, Arterial 10/26/2024 5 :14 AM EDT 10/26/2024 5:31 AM EDT us Semaj Mcnair III, MD POINT OF CARE TEST ORDERABLES Final Result Performing Organization Address [facility] Co de Phone Number [facility] [address] [facility]. [address] * POC Lactate (10/26/2024 5:14 AM EDT) POC Lactate 1.76 0.50 - 2.20 mmol/L 10/26/2024 5:31 AM EDT [facility] Blood, Arterial 10/26/2024 5 :14 AM EDT 10/26/2024 5:31 AM EDT us Semaj Mcnair III, MD POINT OF CARE TEST ORDERABLES Final Result Performing Organization Address [facility] Co de Phone Number [facility] [address] [facility]. [address] * (ABNORMAL) POC Glucose (10/26/2024 5:14 AM EDT) POC Glucose, Arterial 183(H) 70 - 100 mg/dL 10/26/2024 5:31 AM EDT [facility] Blood, Arterial 10/26/2024 5 :14 AM EDT 10/26/2024 5:31 AM EDT us Semaj Mcnair III, MD POINT OF CARE TEST ORDERABLES Final Result Performing Organization Address City/[facility] Co de Phone Number [facility] [address] [facility]. [address] * (ABNORMAL) POC Ionized Calcium (10/26/2024 5:14 AM EDT) POC Ionized Calcium 5.50(H) 4.50 - 5.30 mg/dL 10/26/2024 5:31 AM EDT [facility] Blood, Arterial 10/26/2024 5 :14 AM EDT 10/26/2024 5:31 AM EDT us Semaj Mcnair III, MD POINT OF CARE TEST ORDERABLES Final Result Performing Organization Address [facility] Co de Phone Number [facility] [address] [place] [address]. [address] * (ABNORMAL) POC Potassium (10/26/2024 5:14 AM EDT) POC Potassium 2.8(LL) 3.5 - 5.3 mmol/L 10/26/2024 5:31 AM EDT [facility] Blood, Arterial 10/26/2024 5 :14 AM EDT 10/26/2024 5:31 AM EDT us Semaj cMnair III, MD POINT OF CARE TEST ORDERABLES Final Result Performing Organization Address [facility] Co de Phone Number [facility] [address] [facility]. [address] * POC Sodium (10/26/2024 5:14 AM EDT) Pathologist [facility] POC Sodium 138 136 - 146 mmol/L 10/26/2024 5:31 AM EDT [facility] Blood, Arterial 10/26/2024 5 :14 AM EDT 10/26/2024 5:31 AM EDT us Semaj Mcnair III, MD POINT OF CARE TEST ORDERABLES Final Result Performing Organization Address City/[facility] Co de Phone Number [facility] [address] [place] [address]. [address] * POC TCO2 (10/26/2024 5:14 AM EDT) POC TCO2, Arterial 23 23 - 27 mmol/L 10/26/2024 5:31 AM EDT [facility] Blood, Arterial 10/26/2024 5 :14 AM EDT 10/26/2024 5:31 AM EDT Semaj Mcnair III, MD POINT OF CARE TEST ORDERABLES Final Result [facility] [address] * (ABNORMAL) POC O2 SAT (10/26/2024 5:14 AM EDT) POC O2 Saturation, Arterial 99(H) 95 - 98 % 10/26/2024 5:31 AM EDT [facility] Blood, Arterial 10/26/2024 5 :14 AM EDT 10/26/2024 5:31 AM EDT Semaj Mcnair III, MD POINT OF CARE TEST ORDERABLES Final Result Performing Organization Address City/[facility] Co de Phone Number [facility] [address] * (ABNORMAL) POC Base Excess (10/26/2024 5:14 AM EDT) POC Base Excess, Arterial -5(L) -2 - 3 mmol/L 10/26/2024 5:31 AM EDT [facility] Blood, Arterial 10/26/2024 5 :14 AM EDT 10/26/2024 5:31 AM EDT Semaj Mcnair III, MD POINT OF CARE TEST ORDERABLES Final Result [facility] [address] * POC HCO3 (10/26/2024 5:14 AM EDT) POC HCO3, Arterial 22 22 - 26 mmol/L 10/26/2024 5:31 AM EDT [facility] Blood, Arterial 10/26/2024 5 :14 AM EDT 10/26/2024 5:31 AM EDT us Semaj Mcnair III, MD POINT OF CARE TEST ORDERABLES Final Result Performing Organization Address City/[facility]/ZIP Co de Phone Number [facility] [address] [place] [facility]. [address] * (ABNORMAL) POC PO2 (10/26/2024 5:14 AM EDT) POC pO2, Arterial 133(H) 80 - 100 mm Hg 10/26/2024 5:31 AM EDT [facility] Blood, Arterial 10/26/2024 5 :14 AM EDT 10/26/2024 5:31 AM EDT us Semaj Mcnair III, MD POINT OF CARE TEST ORDERABLES Final Result Performing Organization Address [facility] Co de Phone Number [facility] [address] * POC PCO2 (10/26/2024 5:14 AM EDT) POC pCO2, Arterial 45 35 - 45 mm Hg 10/26/2024 5:31 AM EDT [facility] Blood, Arterial 10/26/2024 5 :14 AM EDT 10/26/2024 5:31 AM EDT us Semaj Mcnair III, MD POINT OF CARE TEST ORDERABLES Final Result Performing Organization Address City/[facility] Co de Phone Number [facility] [address] [facility]. [address] * (ABNORMAL) POC pH (10/26/2024 5:14 AM EDT) POC pH, Arterial 7.29(L) 7.35 - 7.45 10/26/2024 5:31 AM EDT [facility] Blood, Arterial 10/26/2024 5 :14 AM EDT 10/26/2024 5:31 AM EDT us Semaj Mcnair III, MD POINT OF CARE TEST ORDERABLES Final Result Performing Organization Address City/[facility] Co de Phone Number [facility] [address] * Transfuse Cryoprecipitate (10/26/2024 4:37 AM EDT) Eber Quinones MD NURSING TREATMENT ORDERA BLES - BLOOD ADMIN Final Result * Transfuse Cryoprecipitate (10/26/2024 4:37 AM EDT) Eber Quinones MD NURSING TREATMENT ORDERA BLES - BLOOD ADMIN Final Result * (ABNORMAL) POC INR (10/26/2024 4:27 AM EDT) Prothrombin Time INR, POC 2.3(H) 0.8 - 1.4 10/27/2024 6:51 AM EDT [facility] Comment: Test results may vary using [...] TEST ORDERABLES Final Result Performing Organization Address [facility] Co de Phone Number [facility] [address] * POC Sample Type (10/26/2024 4:24 AM EDT) POC Sample Type Arterial 10/26/2024 5:09 AM EDT [facility] Blood, Arterial 10/26/2024 4 :24 AM EDT 10/26/2024 5:09 AM EDT Semaj Mcnair III, MD POINT OF CARE TEST ORDERABLES Final Result Performing Organization Address City/[facility]/ZIP Co de Phone Number [facility] [address] * POC Anion Gap (10/26/2024 4:24 AM EDT) POC Anion Gap, Arterial 14 3 - 16 mmol/L 10/26/2024 5:09 AM EDT [facility] Blood, Arterial 10/26/2024 4 :24 AM EDT 10/26/2024 5:09 AM EDT us Semaj Mcnair III, MD POINT OF CARE TEST ORDERABLES Final Result Performing Organization Address [facility] Co de Phone Number [facility] [address] * POC Chloride (10/26/2024 4:24 AM EDT) POC Chloride 103 98 - 110 mmol/L 10/26/2024 5:09 AM EDT [facility] Blood, Arterial 10/26/2024 4 :24 AM EDT 10/26/2024 5:09 AM EDT us Semaj Mcnair III, MD POINT OF CARE TEST ORDERABLES Final Result Performing Organization Address [facility]/ZIP Co de Phone Number [facility] [address] * (ABNORMAL) POC Hemoglobin (10/26/2024 4:24 AM EDT) POC Hemoglobin 10.3(L) 14.0 - 18.0 g/dL 10/26/2024 5:09 AM EDT [facility] Blood, Arterial 10/26/2024 4 :24 AM EDT 10/26/2024 5:09 AM EDT us Semaj Mcnair III, MD POINT OF CARE TEST ORDERABLES Final Result Performing Organization Address City/[facility]/ZIP Co de Phone Number [facility] [address] * (ABNORMAL) POC hematocrit (10/26/2024 4:24 AM EDT) POC Hematocrit 30.0(L) 40 - 52 % 10/26/2024 5:09 AM EDT [facility] Blood, Arterial 10/26/2024 4 :24 AM EDT 10/26/2024 5:09 AM EDT Semaj Mcnair III, MD POINT OF CARE TEST ORDERABLES Final Result [facility] [address] * (ABNORMAL) POC Lactate (10/26/2024 4:24 AM EDT) POC Lactate 2.43(H) 0.50 - 2.20 mmol/L 10/26/2024 5:09 AM EDT [facility] Blood, Arterial 10/26/2024 4 :24 AM EDT 10/26/2024 5:09 AM EDT us Semaj Mcnair III, MD POINT OF CARE TEST ORDERABLES Final Result Performing Organization Address [facility]/ZIP Co de Phone Number [facility] [address] [facility]. [address] * (ABNORMAL) POC Glucose (10/26/2024 4:24 AM EDT) POC Glucose, Arterial 185(H) 70 - 100 mg/dL 10/26/2024 5:09 AM EDT [facility] Blood, Arterial 10/26/2024 4 :24 AM EDT 10/26/2024 5:09 AM EDT us Semaj Mcnair III, MD POINT OF CARE TEST ORDERABLES Final Result [facility] [address] * POC Ionized Calcium (10/26/2024 4:24 AM EDT) POC Ionized Calcium 5.20 4.50 - 5.30 mg/dL 10/26/2024 5:09 AM EDT [facility] Blood, Arterial 10/26/2024 4 :24 AM EDT 10/26/2024 5:09 AM EDT us Semaj Mcnair III, MD POINT OF CARE TEST ORDERABLES Final Result [facility] [address] * (ABNORMAL) POC Potassium (10/26/2024 4:24 AM EDT) POC Potassium 2.8(LL) 3.5 - 5.3 mmol/L 10/26/2024 5:09 AM EDT [facility] Blood, Arterial 10/26/2024 4 :24 AM EDT 10/26/2024 5:09 AM EDT us Semaj Mcnair III, MD POINT OF CARE TEST ORDERABLES Final Result Performing Organization Address City/[facility]/ZIP Co de Phone Number [facility] [address] * POC Sodium (10/26/2024 4:24 AM EDT) POC Sodium 139 136 - 146 mmol/L 10/26/2024 5:09 AM EDT [facility] Blood, Arterial 10/26/2024 4 :24 AM EDT 10/26/2024 5:09 AM EDT us Semaj Mcnair III, MD POINT OF CARE TEST ORDERABLES Final Result [facility] [address] * POC TCO2 (10/26/2024 4:24 AM EDT) POC TCO2, Arterial 23 23 - 27 mmol/L 10/26/2024 5:09 AM EDT [facility] Blood, Arterial 10/26/2024 4 :24 AM EDT 10/26/2024 5:09 AM EDT us Semaj Mcnair III, MD POINT OF CARE TEST ORDERABLES Final Result [facility] [address] * POC O2 SAT (10/26/2024 4:24 AM EDT) POC O2 Saturation, Arterial 96 95 - 98 % 10/26/2024 5:09 AM EDT [facility] Blood, Arterial 10/26/2024 4 :24 AM EDT 10/26/2024 5:09 AM EDT us Semaj Mcnair III, MD POINT OF CARE TEST ORDERABLES Final Result Performing Organization Address City/[facility] Co de Phone Number [facility] [address] [facility]. [address] * (ABNORMAL) POC Base Excess (10/26/2024 4:24 AM EDT) POC Base Excess, Arterial -5(L) -2 - 3 mmol/L 10/26/2024 5:09 AM EDT [facility] Blood, Arterial 10/26/2024 4 :24 AM EDT 10/26/2024 5:09 AM EDT us Semaj Mcnair III, MD POINT OF CARE TEST ORDERABLES Final Result [facility] [address] [facility]. [address] * POC HCO3 (10/26/2024 4:24 AM EDT) POC HCO3, Arterial 22 22 - 26 mmol/L 10/26/2024 5:09 AM EDT [facility] Blood, Arterial 10/26/2024 4 :24 AM EDT 10/26/2024 5:09 AM EDT us Semaj Mcnair III, MD POINT OF CARE TEST ORDERABLES Final Result Performing Organization Address City/[facility] Co de Phone Number [facility] [address] [place] [address]. [address] * POC PO2 (10/26/2024 4:24 AM EDT) POC pO2, Arterial 93 80 - 100 mm Hg 10/26/2024 5:09 AM EDT [facility] Blood, Arterial 10/26/2024 4 :24 AM EDT 10/26/2024 5:09 AM EDT Semaj Mcnair III, MD POINT OF CARE TEST ORDERABLES Final Result Performing Organization Address [facility] Co de Phone Number [facility] [address] [place] [address]. [address] * POC PCO2 (10/26/2024 4:24 AM EDT) POC pCO2, Arterial 44 35 - 45 mm Hg 10/26/2024 5:09 AM EDT [facility] Blood, Arterial 10/26/2024 4 :24 AM EDT 10/26/2024 5:09 AM EDT us Semaj Mcnair III, MD POINT OF CARE TEST ORDERABLES Final Result Performing Organization Address City/[facility] Co de Phone Number [facility] [address] [place] [address]. [address] [address] * (ABNORMAL) POC pH (10/26/2024 4:24 AM EDT) POC pH, Arterial 7.30(L) 7.35 - 7.45 10/26/2024 5:09 AM EDT [facility] Blood, Arterial 10/26/2024 4 :24 AM EDT 10/26/2024 5:09 AM EDT Semaj Mcnair III, MD POINT OF CARE TEST ORDERABLES Final Result [facility] [address] [facility]. [address] * Transfuse Platelets (10/26/2024 4:14 AM [...] TEST ORDERABLES Final Result [facility] [address] [facility]. [address] * POC Sample Type (10/26/2024 3:31 AM EDT) POC Sample Type Arterial 10/26/2024 4:11 AM EDT [facility] Blood, Arterial 10/26/2024 3 :31 AM EDT 10/26/2024 4:11 AM EDT us Semaj Mcnair III, MD POINT OF CARE TEST ORDERABLES Final Result Performing Organization Address [facility] Co de Phone Number [facility] [address] * POC Anion Gap (10/26/2024 3:31 AM EDT) Pathologist [facility] POC Anion Gap, Arterial 15 3 - 16 mmol/L 10/26/2024 4:11 AM EDT [facility] Blood, Arterial 10/26/2024 3 :31 AM EDT 10/26/2024 4:11 AM EDT us Semaj Mcnair III, MD POINT OF CARE TEST ORDERABLES Final Result Performing Organization Address [facility] Co de Phone Number [facility] [address] [facility]. [address] * POC Chloride (10/26/2024 3:31 AM EDT) [facility] POC Chloride 105 98 - 110 mmol/L 10/26/2024 4:11 AM EDT [facility] Blood, Arterial 10/26/2024 3 :31 AM EDT 10/26/2024 4:11 AM EDT us Semaj Mcnair III, MD POINT OF CARE TEST ORDERABLES Final Result Performing Organization Address [facility] Co de Phone Number [facility] [address] * (ABNORMAL) POC Hemoglobin (10/26/2024 3:31 AM EDT) Pathologist [facility] POC Hemoglobin 9.7(L) 14.0 - 18.0 g/dL 10/26/2024 4:11 AM EDT [facility] Blood, Arterial 10/26/2024 3 :31 AM EDT 10/26/2024 4:11 AM EDT us Semaj Mcnair III, MD POINT OF CARE TEST ORDERABLES Final Result Performing Organization Address City/[facility] Co de Phone Number [facility] [address] * (ABNORMAL) POC hematocrit (10/26/2024 3:31 AM EDT) POC Hematocrit 29.0(L) 40 - 52 % 10/26/2024 4:11 AM EDT [facility] Blood, Arterial 10/26/2024 3 :31 AM EDT 10/26/2024 4:11 AM EDT us Semaj Mcnair III, MD POINT OF CARE TEST ORDERABLES Final Result Performing Organization Address [facility] Co de Phone Number [facility] [address] * (ABNORMAL) POC Lactate (10/26/2024 3:31 AM EDT) POC Lactate 3.54(H) 0.50 - 2.20 mmol/L 10/26/2024 4:11 AM EDT [facility] Blood, Arterial 10/26/2024 3 :31 AM EDT 10/26/2024 4:11 AM EDT us Semaj Mcnair III, MD POINT OF CARE TEST ORDERABLES Final Result Performing Organization Address City/[facility] Co de Phone Number [facility] [address] * (ABNORMAL) POC Glucose (10/26/2024 3:31 AM EDT) POC Glucose, Arterial 153(H) 70 - 100 mg/dL 10/26/2024 4:11 AM EDT [facility] Blood, Arterial 10/26/2024 3 :31 AM EDT 10/26/2024 4:11 AM EDT us Semaj Mcnair III, MD POINT OF CARE TEST ORDERABLES Final Result Performing Organization Address City/[facility]/ZIP Co de Phone Number [facility] [address] * POC Ionized Calcium (10/26/2024 3:31 AM EDT) POC Ionized Calcium 5.10 4.50 - 5.30 mg/dL 10/26/2024 4:11 AM EDT [facility] Blood, Arterial 10/26/2024 3 :31 AM EDT 10/26/2024 4:11 AM EDT us Semaj Mcnair III, MD POINT OF CARE TEST ORDERABLES Final Result Performing Organization Address [facility] Co de Phone Number [facility] [address] * (ABNORMAL) POC Potassium (10/26/2024 3:31 AM EDT) POC Potassium 2.6(LL) 3.5 - 5.3 mmol/L 10/26/2024 4:11 AM EDT [facility] Blood, Arterial 10/26/2024 3 :31 AM EDT 10/26/2024 4:11 AM EDT us Semaj Mcnair III, MD POINT OF CARE TEST ORDERABLES Final Result Performing Organization Address City/[facility] Co de Phone Number [facility] [address] * POC Sodium (10/26/2024 3:31 AM EDT) POC Sodium 138 136 - 146 mmol/L 10/26/2024 4:11 AM EDT [facility] Blood, Arterial 10/26/2024 3 :31 AM EDT 10/26/2024 4:11 AM EDT us Semaj Mcnair III, MD POINT OF CARE TEST ORDERABLES Final Result [facility] [address] * (ABNORMAL) POC TCO2 (10/26/2024 3:31 AM EDT) POC TCO2, Arterial 19(L) 23 - 27 mmol/L 10/26/2024 4:11 AM EDT [facility] Blood, Arterial 10/26/2024 3 :31 AM EDT 10/26/2024 4:11 AM EDT Semaj Mcnair III, MD POINT OF CARE TEST ORDERABLES Final Result Performing Organization Address [facility] Co de Phone Number [facility] [address] [facility] * POC O2 SAT (10/26/2024 3:31 AM EDT) POC O2 Saturation, Arterial 97 95 - 98 % 10/26/2024 4:11 AM EDT [facility] Blood, Arterial 10/26/2024 3 :31 AM EDT 10/26/2024 4:11 AM EDT us Semaj Mcnair III, MD POINT OF CARE TEST ORDERABLES Final Result Performing Organization Address City/[facility]/ZIP Co de Phone Number [facility] [address] [place] [facility]. [address] * (ABNORMAL) POC Base Excess (10/26/2024 3:31 AM EDT) POC Base Excess, Arterial -9(L) -2 - 3 mmol/L 10/26/2024 4:11 AM EDT [facility] Blood, Arterial 10/26/2024 3 :31 AM EDT 10/26/2024 4:11 AM EDT us Semaj Mcnair III, MD POINT OF CARE TEST ORDERABLES Final Result Performing Organization Address City/[facility]/ZIP Co de Phone Number [facility] [address] * (ABNORMAL) POC HCO3 (10/26/2024 3:31 AM EDT) POC HCO3, Arterial 18(L) 22 - 26 mmol/L 10/26/2024 4:11 AM EDT [facility] Blood, Arterial 10/26/2024 3 :31 AM EDT 10/26/2024 4:11 AM EDT Semaj Mcnair III, MD POINT OF CARE TEST ORDERABLES Final Result Performing Organization Address [facility] Co de Phone Number [facility] [address] * (ABNORMAL) POC PO2 (10/26/2024 3:31 AM EDT) POC pO2, Arterial 104(H) 80 - 100 mm Hg 10/26/2024 4:11 AM EDT [facility] Blood, Arterial 10/26/2024 3 :31 AM EDT 10/26/2024 4:11 AM EDT us Semaj Mcnair III, MD POINT OF CARE TEST ORDERABLES Final Result Performing Organization Address City/[facility]/ZIP Co de Phone Number [facility] [address] [facility] * POC PCO2 (10/26/2024 3:31 AM EDT) POC pCO2, Arterial 42 35 - 45 mm Hg 10/26/2024 4:11 AM EDT [facility] Blood, Arterial 10/26/2024 3 :31 AM EDT 10/26/2024 4:11 AM EDT us Semaj Mcnair III, MD POINT OF CARE TEST ORDERABLES Final Result [facility] [address] * (ABNORMAL) POC pH (10/26/2024 3:31 AM EDT) POC pH, Arterial 7.24(L) 7.35 - 7.45 10/26/2024 4:11 AM EDT [facility] Blood, Arterial 10/26/2024 3 :31 AM EDT 10/26/2024 4:11 AM EDT us Semaj Mcnair III, MD POINT OF CARE TEST ORDERABLES Final Result Performing Organization Address [facility] Co de Phone Number [facility] [address] [facility]. [address] * (ABNORMAL) TEG-Global With Lysis (Baseline TEG with LY30, Will NOT Show Heparin Effect) (53:31 AM EDT) Pathologist [facility] Citrated Kaolin Reaction Time (TEGLYSIS) 6.8 4.6 - 9.1 minutes 10/26/2024 5:02 AM EDT [facility] Citrated Rapid Teg Maximum Amplitude (TEGLYSIS) <40.0(L) 52.0 - 70.0 mm 10/26/2024 5:02 AM EDT [facility] Citrated Functional Fibrinogen Maximum Amplitude (TEGLYSIS) <4.0(L) 15.0 - 32.0 mm 10/26/2024 5:02 AM EDT [facility] Citrated Kaolin Percent Lysis (TEGLYSIS) 1.4 0.0 - 2.6 % 10/26/2024 5:02 AM EDT [facility] Whole Blood (Citrate) 10/26/2024 3:31 AM EDT 10/26/2024 3:40 AM EDT us Eber Quinones MD LAB BLOOD ORDERABLES Fin al Result Performing Organization Address [facility]/ZIP Co de Phone Number [facility] [address] [facility] * (ABNORMAL) CBC (10/26/2024 3:31 AM EDT) WBC 9.5 3.8 - 10.8 10E3/uL 10/26/2024 3:48 AM EDT [facility] RBC 3.68(L) 4.20 - 5.80 10E6/uL 10/26/2024 3:48 AM EDT [facility] Hemoglobin 11.5(L) 13.2 - 17.1 g/dL 10/26/2024 3:48 AM EDT [facility] Hematocrit 33.0(L) 38.5 - 50.0 % 10/26/2024 3:48 AM EDT [facility] MCV 89.6 80.0 - 100.0 fL 10/26/2024 3:48 AM EDT [facility] MCH 31.1 27.0 - 33.0 pg 10/26/2024 3:48 AM EDT [facility] MCHC 34.8 32.0 - 36.0 g/dL 10/26/2024 3:48 AM EDT [facility] RDW 19.3(H) 11.0 - 15.0 % 10/26/2024 3:48 AM EDT [facility] Platelets 67(L) 140 - 400 10E3/uL 10/26/2024 3:48 AM EDT [facility] MPV 7.9 7.5 - 11.5 fL 10/26/2024 3:48 AM EDT [facility] Whole Blood 10/26/2024 3:31 AM EDT 10/26/2024 3:40 AM EDT us Eber Quinones MD LAB BLOOD ORDERABLES Fin al Result Performing Organization Address City/State/[facility] Co de Phone Number [facility] [address] * (ABNORMAL) Protime-INR (10/26/2024 3:31 AM EDT) Protime 27.0(H) 12.1 - 15.1 seconds 10/26/2024 3:51 AM EDT [facility] INR 2.4(H) 0.9 - 1.1 10/26/2024 3:51 AM EDT [facility] Comment: RECOMMENDED THERAPEUTIC RANGES USING INR : Stable oral anticoagulant therapy: 2.0 - 3.0 Mechanical prosthetic heart valve: 2.5 - 3.5 Recurrent acute myocardial infarction: 2.5 - 3.5 Plasma 10/26/2024 3:31 AM EDT 10/26/2024 3:40 AM EDT Result [facility] Eber Quinones MD LAB BLOOD ORDERABLES Fin al Result Performing Organization Address City/[facility] Co de Phone Number [facility] [address] [facility]. [address] * (ABNORMAL) Fibrinogen (10/26/2024 3:31 AM EDT) Fibrinogen 104(L) 218 - 406 mg/dL 10/26/2024 3:56 AM EDT [facility] Plasma 10/26/2024 3:31 AM EDT 10/26/2024 3:40 AM EDT Eber Quinones MD LAB BLOOD ORDERABLES Fin al Result Performing Organization Address [facility] Co de Phone Number [facility] [address] [facility]. [address] * Transfuse Fresh Frozen Plasma (10/26/2024 3:16 AM EDT) us Ben Blake MD NURSING TREATMENT ORDERABLES - BLOOD ADMIN Final Result * Transfuse Fresh Frozen Plasma (10/26/2024 3:15 AM EDT) us Ben Blake MD NURSING TREATMENT ORDERABLES - BLOOD ADMIN Final Result * Transfuse RBC (10/26/2024 3:14 AM EDT) us Ben Blake MD NURSING TREATMENT ORDERABLES - BLOOD ADMIN Final Result * Transfuse RBC (10/26/2024 3:14 AM EDT) us Ben Blake MD NURSING TREATMENT ORDERABLES - BLOOD ADMIN Final Result * Transfuse RBC (10/26/2024 2:40 AM EDT) Result On License Of [facility] us Ben Blake MD NURSING [...] Transfuse RBC (10/26/2024 1:45 AM EDT) Result On License Of [facility] us Ben Blake MD NURSING TREATMENT ORDERABLES - BLOOD ADMIN Final Result * Transfuse RBC (10/26/2024 1:45 AM EDT) Result Tiburcio lBake MD NURSING TREATMENT ORDERABLES - BLOOD ADMIN Final Result * (ABNORMAL) POC INR (10/26/2024 1:43 AM EDT) [facility] Prothrombin Time INR, POC 1.9(H) 0.8 [...] TEST ORDERABLES Final Result [facility] [address] [place] [address], [facility] * Transfuse Fresh Frozen [...] Arterial 10/26/2024 2:32 AM EDT [facility] Blood, Arterial 10/26/2024 1 :40 AM EDT 10/26/2024 2:32 AM EDT us Semaj Mcnair III, MD POINT OF CARE TEST ORDERABLES Final Result Performing Organization Address [facility] Co de Phone Number [facility] [address] [place] [address]. [address] * POC Anion Gap (10/26/2024 1:40 AM EDT) [facility] POC Anion Gap, Arterial 13 3 - 16 mmol/L 10/26/2024 2:32 AM EDT [facility] Blood, Arterial 10/26/2024 1 :40 AM EDT 10/26/2024 2:32 AM EDT Result On License Of [facility] us Semaj Mcnair III, MD POINT OF CARE TEST ORDERABLES Final Result [facility] [address] [facility]. [address] * POC Chloride (10/26/2024 1:40 AM EDT) Pathologist [facility] POC Chloride 104 98 - 110 mmol/L 10/26/2024 2:32 AM EDT [facility] Blood, Arterial 10/26/2024 1 :40 AM EDT 10/26/2024 2:32 AM EDT us Semaj Mcnair III, MD POINT OF CARE TEST ORDERABLES Final Result Performing Organization Address City/[facility]/ZIP Co de Phone Number [facility] [address] [facility]. [address] * (ABNORMAL) POC Hemoglobin (10/26/2024 1:40 AM EDT) POC Hemoglobin 7.4(L) 14.0 - 18.0 g/dL 10/26/2024 2:32 AM EDT [facility] Blood, Arterial 10/26/2024 1 :40 AM EDT 10/26/2024 2:32 AM EDT us Semaj Mcnair III, MD POINT OF CARE TEST ORDERABLES Final Result Performing Organization Address [facility] Co de Phone Number [address] * (ABNORMAL) POC hematocrit (10/26/2024 1:40 AM EDT) POC Hematocrit 22.0(L) 40 - 52 % 10/26/2024 2:32 AM EDT [facility] Blood, Arterial 10/26/2024 1 :40 AM EDT 10/26/2024 2:32 AM EDT us Semaj Mcnair III, MD POINT OF CARE TEST ORDERABLES Final Result Performing Organization Address City/[facility] Co de Phone Number [facility] [address] [place], [place] [address] [facility]. [address] * (ABNORMAL) POC Lactate (10/26/2024 1:40 AM EDT) POC Lactate 2.30(H) 0.50 - 2.20 mmol/L 10/26/2024 2:32 AM EDT [facility] Blood, Arterial 10/26/2024 1 :40 AM EDT 10/26/2024 2:32 AM EDT us Semaj Mcnair III, MD POINT OF CARE TEST ORDERABLES Final Result Performing Organization Address City/[facility] Co de Phone Number [facility] [address] [place] [address]. [address] * (ABNORMAL) POC Glucose (10/26/2024 1:40 AM EDT) POC Glucose, Arterial 116(H) 70 - 100 mg/dL 10/26/2024 2:32 AM EDT [facility] Blood, Arterial 10/26/2024 1 :40 AM EDT 10/26/2024 2:32 AM EDT Semaj Mcnair III, MD POINT OF CARE TEST ORDERABLES Final Result Performing Organization Address [facility] Co de Phone Number [facility] [address] [place] [address]. [address] * (ABNORMAL) POC Ionized Calcium (10/26/2024 1:40 AM EDT) POC Ionized Calcium 4.10(L) 4.50 - 5.30 mg/dL 10/26/2024 2:32 AM EDT [facility] Blood, Arterial 10/26/2024 1 :40 AM EDT 10/26/2024 2:32 AM EDT Result On License Of [facility] us Semaj Mcnair III, MD POINT OF CARE TEST ORDERABLES Final Result Performing Organization Address City/[facility] Co de Phone Number [facility] [address] [place] [address]. [address] * (ABNORMAL) POC Potassium (10/26/2024 1:40 AM EDT) POC Potassium 2.6(LL) 3.5 - 5.3 mmol/L 10/26/2024 2:32 AM EDT [facility] Blood, Arterial 10/26/2024 1 :40 AM EDT 10/26/2024 2:32 AM EDT us Semaj Mcnair III, MD POINT OF CARE TEST ORDERABLES Final Result Performing Organization Address City/[facility]/ZIP Co de Phone Number [facility] [address] [place] [address]. [address] * (ABNORMAL) POC Sodium (10/26/2024 1:40 AM EDT) POC Sodium 135(L) 136 - 146 mmol/L 10/26/2024 2:32 AM EDT [facility] Blood, Arterial 10/26/2024 1 :40 AM EDT 10/26/2024 2:32 AM EDT us Semaj Mcnair III, MD POINT OF CARE TEST ORDERABLES Final Result Performing Organization Address [facility] Co de Phone Number [facility] [address] [place] [address]. [address] * (ABNORMAL) POC TCO2 (10/26/2024 1:40 AM EDT) POC TCO2, Arterial 19(L) 23 - 27 mmol/L 10/26/2024 2:32 AM EDT [facility] Blood, Arterial 10/26/2024 1 :40 AM EDT 10/26/2024 2:32 AM EDT us Semaj Mcnair III, MD POINT OF CARE TEST ORDERABLES Final Result Performing Organization Address City/[facility]/ZIP Co de Phone Number [facility] [address] [place] [address]. [address] * (ABNORMAL) POC O2 SAT (10/26/2024 1:40 AM EDT) POC O2 Saturation, Arterial 99(H) 95 - 98 % 10/26/2024 2:32 AM EDT [facility] Blood, Arterial 10/26/2024 1 :40 AM EDT 10/26/2024 2:32 AM EDT us Semaj Mcnair III, MD POINT OF CARE TEST ORDERABLES Final Result Performing Organization Address City/[facility]/ZIP Co de Phone Number [facility] [address] [facility]. [address] * (ABNORMAL) POC Base Excess (10/26/2024 1:40 AM EDT) POC Base Excess, Arterial -7(L) -2 - 3 mmol/L 10/26/2024 2:32 AM EDT [facility] Blood, Arterial 10/26/2024 1 :40 AM EDT 10/26/2024 2:32 AM EDT us Semaj Mcnair III, MD POINT OF CARE TEST ORDERABLES Final Result Performing Organization Address [facility] Co de Phone Number [facility] [address] [place] [facility]. [address] * (ABNORMAL) POC HCO3 (10/26/2024 1:40 AM EDT) POC HCO3, Arterial 18(L) 22 - 26 mmol/L 10/26/2024 2:32 AM EDT [facility] Blood, Arterial 10/26/2024 1 :40 AM EDT 10/26/2024 2:32 AM EDT us Semaj Mcnair III, MD POINT OF CARE TEST ORDERABLES Final Result Performing Organization Address City/[facility] Co de Phone Number [facility] [address] [facility]. [address] * (ABNORMAL) POC PO2 (10/26/2024 1:40 AM EDT) POC pO2, Arterial 145(H) 80 - 100 mm Hg 10/26/2024 2:32 AM EDT [facility] Blood, Arterial 10/26/2024 1 :40 AM EDT 10/26/2024 2:32 AM EDT us Semaj Mcnair III, MD POINT OF CARE TEST ORDERABLES Final Result Performing Organization Address [facility] Co de Phone Number [facility] [address] [facility]. [address] * (ABNORMAL) POC PCO2 (10/26/2024 1:40 AM EDT) POC pCO2, Arterial 33(L) 35 - 45 mm Hg 10/26/2024 2:32 AM EDT [facility] Blood, Arterial 10/26/2024 1 :40 AM EDT 10/26/2024 2:32 AM EDT Semaj Mcnair III, MD POINT OF CARE TEST ORDERABLES Final Result Performing Organization Address [facility] Co de Phone Number [facility] [address] [facility]. [address] * POC pH (10/26/2024 1:40 AM EDT) Pathologist [facility] POC pH, Arterial 7.35 7.35 - 7.45 10/26/2024 2:32 AM EDT [facility] Blood, Arterial 10/26/2024 1 :40 AM EDT 10/26/2024 2:32 AM EDT Semaj Mcnair III, MD POINT OF CARE TEST ORDERABLES Final Result Performing Organization Address [facility] Co de Phone Number [facility] [address] [facility]. [address] * Transfuse Fresh Frozen Plasma (10/26/2024 1:20 AM EDT) Ben Blake MD NURSING TREATMENT ORDERABLES - BLOOD ADMIN Final Result * Transfuse RBC (10/26/2024 12:56 AM EDT) Ben Blake MD NURSING TREATMENT ORDERABLES - BLOOD ADMIN Final Result * (ABNORMAL) POC INR (10/26/2024 12:41 AM EDT) Prothrombin Time INR, POC 2.0(H) 0.8 - 1.4 10/27/2024 6:51 AM EDT [facility] Comment: Test results may vary using [...] TEST ORDERABLES Final Result [facility] [address] [facility]. [address] * POC Sample Type (10/26/2024 12:39 AM EDT) POC Sample Type Arterial 10/26/2024 1:38 AM EDT [facility] Blood, Arterial 10/26/2024 1 2:39 AM EDT 10/26/2024 1:38 AM EDT Semaj Mcnair III, MD POINT OF CARE TEST ORDERABLES Final Result Performing Organization Address City/[facility] Co de Phone Number [facility] [address] * POC Anion Gap (10/26/2024 12:39 AM EDT) POC Anion Gap, Arterial 13 3 - 16 mmol/L 10/26/2024 1:38 AM EDT [facility] Blood, Arterial 10/26/2024 1 2:39 AM EDT 10/26/2024 1:38 AM EDT Semaj Mcnair III, MD POINT OF CARE TEST ORDERABLES Final Result [facility] [address] * POC Chloride (10/26/2024 12:39 AM EDT) Pathologist [facility] POC Chloride 103 98 - 110 mmol/L 10/26/2024 1:38 AM EDT [facility] Blood, Arterial 10/26/2024 1 2:39 AM EDT 10/26/2024 1:38 AM EDT us Semaj Mcnair III, MD POINT OF CARE TEST ORDERABLES Final Result Performing Organization Address City/[facility] Co de Phone Number [facility] [address] [facility]. [address] * (ABNORMAL) POC Hemoglobin (10/26/2024 12:39 AM EDT) [facility] POC Hemoglobin 7.9(L) 14.0 - 18.0 g/dL 10/26/2024 1:38 AM EDT [facility] Blood, Arterial 10/26/2024 1 2:39 AM EDT 10/26/2024 1:38 AM EDT us Semaj Mcnair III, MD POINT OF CARE TEST ORDERABLES Final Result Performing Organization Address [facility] de Phone Number [facility] [address] [place] [address]. [address] * (ABNORMAL) POC hematocrit (10/26/2024 12:39 AM EDT) [facility] POC Hematocrit 23.0(L) 40 - 52 % 10/26/2024 1:38 AM EDT [facility] Blood, Arterial 10/26/2024 1 2:39 AM EDT 10/26/2024 1:38 AM EDT us Semaj Mcnair III, MD POINT OF CARE TEST ORDERABLES Final Result Performing Organization Address City/[facility] Co de Phone Number [facility] [address] [facility]. [address] * POC Lactate (10/26/2024 12:39 AM EDT) POC Lactate 1.39 0.50 - 2.20 mmol/L 10/26/2024 1:38 AM EDT [facility] Blood, Arterial 10/26/2024 1 2:39 AM EDT 10/26/2024 1:38 AM EDT us Semaj Mcnair III, MD POINT OF CARE TEST ORDERABLES Final Result Performing Organization Address City/[facility] Co de Phone Number [facility] [address] [place] [address]. [address] * (ABNORMAL) POC Glucose (10/26/2024 12:39 AM EDT) POC Glucose, Arterial 116(H) 70 - 100 mg/dL 10/26/2024 1:38 AM EDT [facility] Blood, Arterial 10/26/2024 1 2:39 AM EDT 10/26/2024 1:38 AM EDT us Semaj Mcnair III, MD POINT OF CARE TEST ORDERABLES Final Result Performing Organization Address [facility] de Phone Number [facility] [address] [place] [address]. [address] * (ABNORMAL) POC Ionized Calcium (10/26/2024 12:39 AM EDT) Pathologist [facility] Healthcare POC Ionized Calcium 4.30(L) 4.50 - 5.30 mg/dL 10/26/2024 1:38 AM EDT [facility] Blood, Arterial 10/26/2024 1 2:39 AM EDT 10/26/2024 1:38 AM EDT us Semaj Mcnair III, MD POINT OF CARE TEST ORDERABLES Final Result Performing Organization Address [facility] Co de Phone Number [facility] [address] [place] [address]. [address] * (ABNORMAL) POC Potassium (10/26/2024 12:39 AM EDT) POC Potassium 2.4(LL) 3.5 - 5.3 mmol/L 10/26/2024 1:38 AM EDT [facility] Blood, Arterial 10/26/2024 1 2:39 AM EDT 10/26/2024 1:38 AM EDT us Semaj Mcnair III, MD POINT OF CARE TEST ORDERABLES Final Result Performing Organization Address City/[facility]/ZIP Co de Phone Number [facility] [address] [facility]. [address] * POC Sodium (10/26/2024 12:39 AM EDT) Pathologist [facility] POC Sodium 136 136 - 146 mmol/L 10/26/2024 1:38 AM EDT [facility] Blood, Arterial 10/26/2024 1 2:39 AM EDT 10/26/2024 1:38 AM EDT us Semaj Mcnair III, MD POINT OF CARE TEST ORDERABLES Final Result Performing Organization Address [facility] Co de Phone Number [facility] [address] [place] [address]. [address] * (ABNORMAL) POC TCO2 (10/26/2024 12:39 AM EDT) Pathologist [facility] POC TCO2, Arterial 21(L) 23 - 27 mmol/L 10/26/2024 1:38 AM EDT [facility] Blood, Arterial 10/26/2024 1 2:39 AM EDT 10/26/2024 1:38 AM EDT us Semaj Mcnair III, MD POINT OF CARE TEST ORDERABLES Final Result Performing Organization Address City/[facility] Co de Phone Number [facility] [address] [facility]. [address] * POC O2 SAT (10/26/2024 12:39 AM EDT) POC O2 Saturation, Arterial 98 95 - 98 % 10/26/2024 1:38 AM EDT [facility] Blood, Arterial 10/26/2024 1 2:39 AM EDT 10/26/2024 1:38 AM EDT us Semaj Mcnair III, MD POINT OF CARE TEST ORDERABLES Final Result Performing Organization Address City/[facility]/ZIP Co de Phone Number [facility] [address] [place] [address]. [address] * (ABNORMAL) POC Base Excess (10/26/2024 12:39 AM EDT) Pathologist [facility] POC Base Excess, Arterial -7(L) -2 - 3 mmol/L 10/26/2024 1:38 AM EDT [facility] Blood, Arterial 10/26/2024 1 2:39 AM EDT 10/26/2024 1:38 AM EDT us Semaj Mcnair III, MD POINT OF CARE TEST ORDERABLES Final Result Performing Organization Address [facility] Co de Phone Number [address] * (ABNORMAL) POC HCO3 (10/26/2024 12:39 AM EDT) POC HCO3, Arterial 20(L) 22 - 26 mmol/L 10/26/2024 1:38 AM EDT [facility] Blood, Arterial 10/26/2024 1 2:39 AM EDT 10/26/2024 1:38 AM EDT us Semaj Mcnair III, MD POINT OF CARE TEST ORDERABLES Final Result Performing Organization Address [facility] Co de Phone Number [facility] [address] [place] [address]. [address] * (ABNORMAL) POC PO2 (10/26/2024 12:39 AM EDT) POC pO2, Arterial 117(H) 80 - 100 mm Hg 10/26/2024 1:38 AM EDT [facility] Blood, Arterial 10/26/2024 1 2:39 AM EDT 10/26/2024 1:38 AM EDT Semaj Mcnair III, MD POINT OF CARE TEST ORDERABLES Final Result Performing Organization Address [facility] Co de Phone Number [facility] [address] [place] [address]. [address] * (ABNORMAL) POC PCO2 (10/26/2024 12:39 AM EDT) POC pCO2, Arterial 46(H) 35 - 45 mm Hg 10/26/2024 1:38 AM EDT [facility] Blood, Arterial 10/26/2024 1 2:39 AM EDT 10/26/2024 1:38 AM EDT Semaj Mcnair III, MD POINT OF CARE TEST ORDERABLES Final Result Performing Organization Address [facility] Co de Phone Number [facility] [address] [facility]. [address] * (ABNORMAL) POC pH (10/26/2024 12:39 AM EDT) POC pH, Arterial 7.24(L) 7.35 - 7.45 10/26/2024 1:38 AM EDT [facility] Blood, Arterial 10/26/2024 1 2:39 AM EDT 10/26/2024 1:38 AM EDT Semaj Mcnair III, MD POINT OF CARE TEST ORDERABLES Final Result Performing Organization Address [facility] Co de Phone Number [facility] [address] [place] [facility]. [address] * Transfuse Platelets (10/26/2024 12:37 AM [...] Gram Stain Result Cytospin Results: [facility] Gram Stain Result Polymorphonuclear Leukocytes Seen; [facility] Gram Stain Result No Organisms Seen; [facility] Culture Result No Growth After 3 Days [facility] Surgical Swab ABDOMEN / Unknown 12:03 AM EDT Comment:2.) Ascites Anaerobhic culture Fungus culture Routine culture plus stain Narrative [facility] - 10/28/2024 9:38 PM EDT 2.) Ascites Anaerobhic culture Fungus culture Routine culture plus stain 2.) Ascites Semaj Mcnair III, MD MICROBIOLOGY - GENE RAL ORDERABLES Final Result [facility] [address] [place] [address], [facility] * Surgical Pathology Exam (10/26/2024 12:00 AM EDT) 10/26/2024 10/27/2024 Narrative [facility] - 10/26/2024 12:00 AM EDT CASE: [id number] PATIENT: BLAIR GILBERT Clinical History: Liver - kidney transplant Pre-Operative Diagnosis: Alcoholic cirrhosis of liver Post-Operative Diagnosis: Alcoholic cirrhosis of liver Specimen(s) Submitted: A. [place] [facility] CPT Code(s): 88689 X 1; 97358 X 5 Additional Information: FINAL DIAGNOSIS: A. 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 - Negative for neoplasm. - Increased hepatocellular iron deposition (3+; Modified Scheuer). Gall bladder: -Intramucosal and submucosal vascular congestion and hemorrhage. - Negative for dysplasia or malignancy. Gross Description: Received in formalin, labeled Blair Gilbert and [place] liver , is a 2338-gram, hepatectomy specimen [...] discrete masses or other lesions are identified. [employer] sections are submitted in cassettes [id number] as follows: A1: Hilar margins, en face. [...] Pathologist signing this report is located at [facility], [address] [place] [address], [place], [place], [facility], , CLIA ID: [id number] us Semaj Mcnair III, MD PATHOLOGY/CYTOLOGY ORDERABLES Final Result Performing Organization Address [facility]/State/ZIP Co de Phone Number [facility] * Transfuse [...] 1.4 10/27/2024 6:51 AM EDT [facility] Comment: Test results may vary using [...] TEST ORDERABLES Final Result Performing Organization Address [facility]/ZIP Co de Phone Number [facility] [address] [place] [address] * POC Sample Type (10/25/2024 11:40 PM EDT) POC Sample Type Arterial 10/25/2024 11:57 PM EDT [facility] Blood, Arterial 10/25/2024 1 1:40 PM EDT 10/25/2024 11:57 PM EDT us Semaj Mcnair III, MD POINT OF CARE TEST ORDERABLES Final Result [facility] [address] [facility]. [address] * POC Anion Gap (10/25/2024 11:40 PM EDT) [facility] POC Anion Gap, Arterial 13 3 - 16 mmol/L 10/25/2024 11:57 PM EDT [facility] Blood, Arterial 10/25/2024 1 1:40 PM EDT 10/25/2024 11:57 PM EDT Semaj Mcnair III, MD POINT OF CARE TEST ORDERABLES Final Result Performing Organization Address City/[facility] Co de Phone Number [facility] [address] [facility]. [address] * POC Chloride (10/25/2024 11:40 PM EDT) [facility] POC Chloride 102 98 - 110 mmol/L 10/25/2024 11:57 PM EDT [facility] Blood, Arterial 10/25/2024 1 1:40 PM EDT 10/25/2024 11:57 PM EDT us Semaj Mcnair III, MD POINT OF CARE TEST ORDERABLES Final Result Performing Organization Address City/[facility] Co de Phone Number [facility] [address] * (ABNORMAL) POC Hemoglobin (10/25/2024 11:40 PM EDT) Pathologist [facility] POC Hemoglobin 6.6(L) 14.0 - 18.0 g/dL 10/25/2024 11:57 PM EDT [facility] Blood, Arterial 10/25/2024 1 1:40 PM EDT 10/25/2024 11:57 PM EDT us Semaj Mcnair III, MD POINT OF CARE TEST ORDERABLES Final Result Performing Organization Address City/[facility]/ZIP Co de Phone Number [facility] [address] [place] [address]. [address] * (ABNORMAL) POC hematocrit (10/25/2024 11:40 PM EDT) Pathologist [facility] POC Hematocrit 19.0(L) 40 - 52 % 10/25/2024 11:57 PM EDT [facility] Blood, Arterial 10/25/2024 1 1:40 PM EDT 10/25/2024 11:57 PM EDT us Semaj Mcnair III, MD POINT OF CARE TEST ORDERABLES Final Result Performing Organization Address [facility] Co de Phone Number [facility] [address] [place] [address]. [address] * POC Lactate (10/25/2024 11:40 PM EDT) Pathologist [facility] POC Lactate 1.36 0.50 - 2.20 mmol/L 10/25/2024 11:57 PM EDT [facility] Blood, Arterial 10/25/2024 1 1:40 PM EDT 10/25/2024 11:57 PM EDT us Semaj Mcnair III, MD POINT OF CARE TEST ORDERABLES Final Result Performing Organization Address City/[facility] Co de Phone Number [facility] [address] [place] [address]. [address] * (ABNORMAL) POC Glucose (10/25/2024 11:40 PM EDT) POC Glucose, Arterial 101(H) 70 - 100 mg/dL 10/25/2024 11:57 PM EDT [facility] Blood, Arterial 10/25/2024 1 1:40 PM EDT 10/25/2024 11:57 PM EDT Semaj Mcnair III, MD POINT OF CARE TEST ORDERABLES Final Result Performing Organization Address City/[facility]/ZIP Co de Phone Number [facility] [address] [place] [address]. [address] * POC Ionized Calcium (10/25/2024 11:40 PM EDT) POC Ionized Calcium 4.50 4.50 - 5.30 mg/dL 10/25/2024 11:57 PM EDT [facility] Blood, Arterial 10/25/2024 1 1:40 PM EDT 10/25/2024 11:57 PM EDT Semaj Mcnair III, MD POINT OF CARE TEST ORDERABLES Final Result Performing Organization Address [facility] Co de Phone Number [facility] [address] [place] [address]. [address] * (ABNORMAL) POC Potassium (10/25/2024 11:40 PM EDT) Pathologist [facility] POC Potassium 1.9(LL) 3.5 - 5.3 mmol/L 10/25/2024 11:57 PM EDT [facility] Blood, Arterial 10/25/2024 1 1:40 PM EDT 10/25/2024 11:57 PM EDT Semaj Mcnair III, MD POINT OF CARE TEST ORDERABLES Final Result Performing Organization Address City/[facility] Co de Phone Number [facility] [address] [place] [address]. [address] * (ABNORMAL) POC Sodium (10/25/2024 11:40 PM EDT) POC Sodium 135(L) 136 - 146 mmol/L 10/25/2024 11:57 PM EDT [facility] Blood, Arterial 10/25/2024 1 1:40 PM EDT 10/25/2024 11:57 PM EDT us Semaj Mcnair III, MD POINT OF CARE TEST ORDERABLES Final Result [facility] [address] [facility]. [address] * (ABNORMAL) POC TCO2 (10/25/2024 11:40 PM EDT) POC TCO2, Arterial 21(L) 23 - 27 mmol/L 10/25/2024 11:57 PM EDT [facility] Blood, Arterial 10/25/2024 1 1:40 PM EDT 10/25/2024 11:57 PM EDT us Semaj Mcnair III, MD POINT OF CARE TEST ORDERABLES Final Result Performing Organization Address [facility]/ZIP Co de Phone Number [facility] [address] [facility]. [address] * POC O2 SAT (10/25/2024 11:40 PM EDT) POC O2 Saturation, Arterial 98 95 - 98 % 10/25/2024 11:57 PM EDT [facility] Blood, Arterial 10/25/2024 1 1:40 PM EDT 10/25/2024 11:57 PM EDT us Semaj Mcnair III, MD POINT OF CARE TEST ORDERABLES Final Result [facility] [address] [facility]. [address] * (ABNORMAL) POC Base Excess (10/25/2024 11:40 PM EDT) POC Base Excess, Arterial -6(L) -2 - 3 mmol/L 10/25/2024 11:57 PM EDT [facility] Blood, Arterial 10/25/2024 1 1:40 PM EDT 10/25/2024 11:57 PM EDT us Semaj Mcnair III, MD POINT OF CARE TEST ORDERABLES Final Result [facility] [address] * (ABNORMAL) POC HCO3 (10/25/2024 11:40 PM EDT) POC HCO3, Arterial 20(L) 22 - 26 mmol/L 10/25/2024 11:57 PM EDT [facility] Blood, Arterial 10/25/2024 1 1:40 PM EDT 10/25/2024 11:57 PM EDT Semaj Mcnair III, MD POINT OF CARE TEST ORDERABLES Final Result Performing Organization Address [facility]/ZIP Co de Phone Number [facility] [address] * (ABNORMAL) POC PO2 (10/25/2024 11:40 PM EDT) POC pO2, Arterial 107(H) 80 - 100 mm Hg 10/25/2024 11:57 PM EDT [facility] Blood, Arterial 10/25/2024 1 1:40 PM EDT 10/25/2024 11:57 PM EDT Semaj Mcnair III, MD POINT OF CARE TEST ORDERABLES Final Result [facility] [address] * POC PCO2 (10/25/2024 11:40 PM EDT) POC pCO2, Arterial 41 35 - 45 mm Hg 10/25/2024 11:57 PM EDT [facility] Blood, Arterial 10/25/2024 1 1:40 PM EDT 10/25/2024 11:57 PM EDT us Semja Mcnair III, MD POINT OF CARE TEST ORDERABLES Final Result Performing Organization Address [facility] Co de Phone Number [facility] [address] [facility]. [address] * (ABNORMAL) POC pH (10/25/2024 11:40 PM EDT) POC pH, Arterial 7.29(L) 7.35 - 7.45 10/25/2024 11:57 PM EDT [facility] Blood, Arterial 10/25/2024 1 1:40 PM EDT 10/25/2024 11:57 PM EDT us Semaj Mcnair III, MD POINT OF CARE TEST ORDERABLES Final Result Performing Organization Address [facility] Co de Phone Number [facility] [address] * Urine culture (10/25/2024 11:08 PM EDT) Culture Result <1,000 cfu/mL [facility] Culture Result Skin/Urogeni rony Mckayla. No Further Workup. [facility] Newly Placed Berkowitz Urine URINE SPECIMEN / Unknown 10/25/2024 11:08 PM EDT Comment:urine culture Narrative [facility] - 10/28/2024 9:59 AM EDT urine culture urine culture us Semaj Mcnair III, MD MICROBIOLOGY - GENE RAL ORDERABLES Final Result Performing Organization Address [facility] Co de Phone Number [facility] [address] [facility]. [address] * X-ray Portable Chest (10/25/2024 10:19 [...] mmol/L 10/25/2024 10:39 PM EDT [facility] Plasma 10/25/2024 10:1 7 PM EDT 10/25/2024 10:17 PM EDT Ben Blake MD LAB BLOOD ORDERABLES Final Re sult [facility] [address] [facility]. [address] * (ABNORMAL) Ferritin (10/25/2024 10:17 PM EDT) Ferritin 623.2(H) 23.9 - 336.2 ng/mL 10/25/2024 11:02 PM EDT [facility] Serum 10/25/2024 10:1 7 PM EDT 10/25/2024 10:17 PM EDT Leandra Og MD LAB BLOOD ORDERABLES F inal Result [facility] [address] [facility]. [address] * Iron Studies (Iron + TIBC) (10/25/2024 10:17 PM EDT) Iron 128 50 - 212 ug/dL 10/25/2024 10:44 PM EDT [facility] % Iron Saturation SEE COMMENT 15.0 - 55.0 % 10/25/2024 10:44 PM EDT [facility] Comment:Unable to calculate result because contributing result outside reportable range.. TIBC SEE COMMENT 261 - 462 ug/dL 10/25/2024 10:44 PM EDT [facility] Comment:Unable to calculate result because contributing result outside reportable range.. Serum 10/25/2024 10:1 7 PM EDT 10/25/2024 10:17 PM EDT Leandra Og MD LAB BLOOD ORDERABLES F inal Result [facility] [address] [facility]. [address] * PTH (10/25/2024 10:17 PM EDT) PTH 36.0 12.0 - 88.0 pg/mL 10/25/2024 11:01 PM EDT [facility] Serum 10/25/2024 10:1 7 PM EDT 10/25/2024 10:17 PM EDT Leandra Og MD LAB BLOOD ORDERABLES F inal Result [facility] [address] [facility]. [address] * HIV 1+2 Antibody/Antigen with Reflex (10/25/2024 10:17 PM EDT) HIV 1+2 AB/AGN Nonreactive Nonreactive 10/25/2024 11:03 PM EDT [facility] Serum 10/25/2024 10:1 7 PM EDT 10/25/2024 10:16 PM EDT Narrative [facility] - 10/25/2024 11:03 PM EDT \HIVRNR Leandra Og MD LAB BLOOD ORDERABLES F inal Result [facility] [address] [place] [facility]. [address] * Hepatitis B Core Antibody (10/25/2024 10:17 PM EDT) Hep B Core Total Ab Nonreactive Nonreactive 10/25/2024 11:07 PM EDT [facility] Comment:Health Department no tified in accordance with reportable infectious disease guidelines. Serum 10/25/2024 10:1 7 PM EDT 10/25/2024 10:17 PM EDT Narrative [facility] - 10/25/2024 11:07 PM EDT A nonreactive final interpretation indicates that anti-HBc antibodies were not detected in the sample; it is possible that the individual is not infected with HBV. Leandra Og MD LAB BLOOD ORDERABLES F inal Result Performing Organization Address City/[facility]/ZIP Co de Phone Number [facility] [address] [facility]. [address] * Hepatitis C Antibody (10/25/2024 10:17 PM EDT) [facility] HCV Ab Nonreactive Nonreactive 10/25/2024 11:16 PM EDT [facility] Comment:Health Department no tified in accordance with reportable infectious disease guidelines. Serum 10/25/2024 10:1 7 PM EDT 10/25/2024 10:17 PM EDT Narrative [facility] - 10/25/2024 11:16 PM EDT Antibodies to HCV not detected; does not exclude the possibility of exposure to HCV. Leandra Og MD LAB BLOOD ORDERABLES F inal Result Performing Organization Address [facility] Co de Phone Number [facility] [address] [facility]. [address] * (ABNORMAL) Hepatitis B Surface Antibody, Quantitati (10/25/2024 10:17 PM EDT) [facility] HBSAB NUMBER 10.70(H) 0.00 - 9.99 mIU/mL 10/25/2024 11:52 PM EDT [facility] Hep B S Ab Equivocal (A) Nonreactive 10/25/2024 11:52 PM EDT [facility] Serum 10/25/2024 10:1 7 PM EDT 10/25/2024 10:17 PM EDT Leandra Og MD LAB BLOOD ORDERABLES F inal Result Performing Organization Address [facility] Co de Phone Number [facility] [address] [facility] * Hepatitis B surface antigen (10/25/2024 10:17 PM EDT) Hep B Surface Ag Nonreactive Nonreactive 10/25/2024 11:12 PM EDT [facility] Comment:Health Department no tified in accordance with reportable infectious disease guidelines. Serum 10/25/2024 10:1 7 PM EDT 10/25/2024 10:17 PM EDT Narrative [facility] - 10/25/2024 11:12 PM EDT Specimen is considered negative for HBsAg. Leandra Og MD LAB BLOOD ORDERABLES F inal Result Performing Organization Address City/[facility] Co de Phone Number [facility] [address] [facility]. [address] * Hepatitis A Antibody Total (10/25/2024 10:17 PM EDT) Anti-HAV Total (IgG + IgM) Nonreactive 10/25/2024 11:13 PM EDT [facility] Serum 10/25/2024 10:1 7 PM EDT 10/25/2024 10:17 PM EDT Narrative [facility] - 10/25/2024 11:13 PM EDT HAV antibodies not detected Leandra Og MD LAB BLOOD ORDERABLES F inal Result Performing Organization Address [facility] Co de Phone Number [facility] [address] [facility]. [address] * (ABNORMAL) Hepatic Function Panel (10/25/2024 10:17 PM EDT) Total Bilirubin 9.1(H) 0.0 - 1.5 mg/dL 10/25/2024 10:47 PM EDT [facility] Bilirubin, Direct 4.58(H) 0.00 - 0.40 mg/dL 10/25/2024 10:47 PM EDT [facility] AST 51(H) 13 - 39 U/L 10/25/2024 10:47 PM EDT [facility] ALT 23 7 - 52 U/L 10/25/2024 10:47 PM EDT [facility] Alkaline Phosphatase 144(H) 36 - 125 U/L 10/25/2024 10:47 PM EDT [facility] Total Protein 5.5(L) 6.4 - 8.9 g/dL 10/25/2024 10:47 PM EDT [facility] Albumin 3.5 3.5 - 5.7 g/dL 10/25/2024 10:47 PM EDT [facility] Bilirubin, Indirect 4.52(H) 0.00 - 1.10 mg/dL 10/25/2024 10:47 PM EDT [facility] Plasma 10/25/2024 10:1 7 PM EDT 10/25/2024 10:17 PM EDT us Leandra Og MD LAB BLOOD ORDERABLES F inal Result [facility] [address] * (ABNORMAL) Renal Function Panel w/EGFR (10/25/2024 10:17 PM EDT) Sodium 137 133 - 146 mmol/L 10/25/2024 10:47 PM EDT [facility] Potassium 2.1(LL) 3.5 - 5.3 mmol/L 10/25/2024 10:47 PM EDT [facility] Comment:Critical Result K:2. 1 Called to and read back by: ALICIA CARCAMO RN at: 10/25/2024 22:47:45 by:NANCY Chloride 100 98 - 110 mmol/L 10/25/2024 10:47 PM EDT [facility] CO2 20(L) 21 - 33 mmol/L 10/25/2024 10:47 PM EDT [facility] Anion Gap 17(H) 3 - 16 mmol/L 10/25/2024 10:47 PM EDT [facility] BUN 74(H) 7 - 25 mg/dL 10/25/2024 10:47 PM EDT [facility] Creatinine 3.87(H) 0.60 - 1.30 mg/dL 10/25/2024 10:47 PM EDT [facility] Glucose 114(H) 70 - 100 mg/dL 10/25/2024 10:47 PM EDT [facility] Calcium 9.3 8.6 - 10.3 mg/dL 10/25/2024 10:47 PM EDT [facility] Phosphorus 5.9(H) 2.1 - 4.7 mg/dL 10/25/2024 10:47 PM EDT [facility] Albumin 3.5 3.5 - 5.7 g/dL 10/25/2024 10:47 PM EDT [facility] Osmolality, Calculated 307(H) 278 - 305 mOsm/kg 10/25/2024 10:47 PM EDT [facility] EGFR 19 10/25/2024 10:47 PM EDT [facility] Comment:As of 2021, the estimated GFR [...] BLOOD ORDERABLES F inal Result [facility] [address] [facility] [place] [address], [facility] * (ABNORMAL) APTT, NO ANTICOAGULANT (10/25/2024 10:17 PM EDT) aPTT 41.7(H) 25.5 - 35.0 seconds 10/25/2024 10:36 PM EDT [facility] Plasma 10/25/2024 10:1 7 PM EDT 10/25/2024 10:17 PM EDT us Leandra Og MD LAB BLOOD ORDERABLES F inal Result Performing Organization Address [facility] Co de Phone Number [facility] [address] * (ABNORMAL) Protime-INR (10/25/2024 10:17 PM EDT) Protime 21.7(H) 12.1 - 15.1 seconds 10/25/2024 10:35 PM EDT [facility] INR 1.8(H) 0.9 - 1.1 10/25/2024 10:35 PM EDT [facility] Comment: RECOMMENDED THERAPEUTIC RANGES USING INR : Stable oral anticoagulant therapy: 2.0 - 3.0 Mechanical prosthetic heart valve: 2.5 - 3.5 Recurrent acute myocardial infarction: 2.5 - 3.5 Plasma 10/25/2024 10:1 7 PM EDT 10/25/2024 10:17 PM EDT us Leandra Og MD LAB BLOOD ORDERABLES F inal Result Performing Organization Address [facility] Co de Phone Number [facility] [address] [facility]. [address] * (ABNORMAL) Differential (10/25/2024 10:17 PM EDT) Differential Comments See Note 10/25/2024 10:54 PM EDT [facility] Comment: _Platelets Appear Decreased _Platelet Morphology Normal Scan Result PERFORMED 10/25/2024 10:54 PM EDT [facility] Neutrophils Relative 79.8 40.0 - 80.0 % 10/25/2024 10:54 PM EDT [facility] Lymphocytes Relative 9.6(L) 15.0 - 45.0 % 10/25/2024 10:54 PM EDT [facility] Monocytes Relative 8.9 0.0 - 12.0 % 10/25/2024 10:54 PM EDT [facility] Eosinophils Relative 1.3 0.0 - 8.0 % 10/25/2024 10:54 PM EDT [facility] Basophils Relative 0.4 0.0 - 1.0 % 10/25/2024 10:54 PM EDT [facility] nRBC 0 0 - 0 /100 WBC 10/25/2024 10:54 PM EDT [facility] Neutrophils Absolute 4,948 1,520 - 8,640 /uL 10/25/2024 10:54 PM EDT [facility] Lymphocytes Absolute 595 570 - 4,860 /uL 10/25/2024 10:54 PM EDT [facility] Monocytes Absolute 552 0 - 1,296 /uL 10/25/2024 10:54 PM EDT [facility] Eosinophils Absolute 81 0 - 864 /uL 10/25/2024 10:54 PM EDT [facility] Basophils Absolute 25 0 - 108 /uL 10/25/2024 10:54 PM EDT [facility] PLT Morphology Platelet morphology appears normal 10/25/2024 10:54 PM EDT [facility] Whole Blood 10/25/2024 10:1 7 PM EDT 10/25/2024 10:17 PM EDT us Leandra Og MD LAB BLOOD ORDERABLES F inal Result [facility] [address] * (ABNORMAL) CBC (10/25/2024 10:17 PM EDT) WBC 6.2 3.8 - 10.8 10E3/uL 10/25/2024 10:54 PM EDT [facility] RBC 2.40(L) 4.20 - 5.80 10E6/uL 10/25/2024 10:54 PM EDT [facility] Hemoglobin 8.3(L) 13.2 - 17.1 g/dL 10/25/2024 10:54 PM EDT [facility] Hematocrit 23.7(L) 38.5 - 50.0 % 10/25/2024 10:54 PM EDT [facility] MCV 98.9 80.0 - 100.0 fL 10/25/2024 10:54 PM EDT [facility] MCH 34.6(H) 27.0 - 33.0 pg 10/25/2024 10:54 PM EDT [facility] MCHC 35.0 32.0 - 36.0 g/dL 10/25/2024 10:54 PM EDT [facility] RDW 17.8(H) 11.0 - 15.0 % 10/25/2024 10:54 PM EDT [facility] Platelets 56(L) 140 - 400 10E3/uL 10/25/2024 10:54 PM EDT [facility] Comment: Specimen checked for clots. None detected. Slide Reviewed for PLT Clumps. None Seen. Platelet Estimate Decreased 10/25/2024 10:54 PM EDT [facility] MPV 8.1 7.5 - 11.5 fL 10/25/2024 10:54 PM EDT [facility] Whole Blood 10/25/2024 10:1 7 PM EDT 10/25/2024 10:17 PM EDT Narrative [facility] - 10/25/2024 10:54 PM EDT Peripheral blood smear was scanned per review criteria approved by the laboratory medical authorization specialist. us Leandra Og MD LAB BLOOD ORDERABLES F inal Result [facility] [address] [place] [address], [facility] * Donor Specific Antibody (DSA) (10/25/2024 10:00 PM EDT) AntiDonor Antibodies The request and specimen(s) for this test have been received and transported to the [facility] at [address] [place] [address]. The [facility] will report results directly to the client. 10/25/2024 10:20 PM EDT [facility] Comment:Testing performed by [facility], [facility], [address] [place] [address]. The [facility] report has been forwarded to the appropriate ordering location. Please refer to this report for patient results. Serum 10/25/2024 10:0 0 PM EDT 10/25/2024 10:20 PM EDT Leandra Og MD LAB BLOOD ORDERABLES F inal Result [facility] [address] [place], [place] [id number] * (ABNORMAL) Venous Blood Gas, Line/Syringe (10/25/2024 10:00 PM EDT) PH-Line Draw 7.38 7.32 - 7.42 10/25/2024 10:08 PM EDT [facility] PCO2-Line Draw 33(L) 41 - 51 mm Hg 10/25/2024 10:08 PM EDT [facility] PO2-Line Draw 33 25 - 40 mm Hg 10/25/2024 10:08 PM EDT [facility] HCO3-Line Draw 20(L) 24 - 28 mmol/L 10/25/2024 10:08 PM EDT [facility] CO2 Content-Line Draw 21(L) 25 - 29 mmol/L 10/25/2024 10:08 PM EDT [facility] Base Excess-Line Draw -5.0(L) -2.0 - 3.0 mmol/L 10/25/2024 10:08 PM EDT [facility] %HBO2-Line Draw 53.8 40.0 - 70.0 % 10/25/2024 10:08 PM EDT [facility] Carboxyhgb-Ludivina e Draw 1.9 % 10/25/2024 10:08 PM EDT [facility] Comment: CARBOXYHEMOGLOBIN (CO) REFERENCE RANGES: Non-Smokers: <2 % Smokers: <8 % TOXIC: >20 % Methemoglobin- Line Draw 0.2 0.0 - 1.5 % 10/25/2024 10:08 PM EDT [facility] Reduced Hemoglobin-Ludivina e Draw 44.1(H) 0.0 - 5.0 % 10/25/2024 10:08 PM EDT [facility] Venous, Line Draw 10/25/2024 10:00 PM EDT 10/25/2024 10:04 PM EDT Leandra Og MD LAB BLOOD ORDERABLES F inal Result [facility] [address] * (ABNORMAL) POC Glucose Monitoring Device (10/25/2024 9:56 PM EDT) [facility] POC Glucose Monitoring Device 103(H) 70 - 100 mg/dL 10/25/2024 9:58 PM EDT [facility] Blood 10/25/2024 9:56 PM EDT 10/25/2024 9:57 PM EDT Semaj Mcnair III, MD POINT OF CARE TEST ORDERABLES Final Result Performing Organization Address [facility] de Phone Number [facility] [address] * ECG 12 lead (MUSE) (10/25/2024 [...] ECG ^ ^ Confirmed by MD HA, [facility] ([id number]) on 10/27/2024 10:08:26 AM us Leandra Og MD ECG ORDERABLES Final Result Performing Organization Address [facility] de Phone Number MUSE * Hepatitis C RNA, Quant Reflex to Genotyp (10/25/2024 8:18 PM EDT) [facility] International Units Not Detected IU/mL 10/27/2024 11:03 AM EDT [facility] Comment:Test methodology for HCV RNA quantification is an FDA-approved nucleic acid amplification assay. The Lower Limit of Quantitation (LLOQ) is 15 IU/mL. The linear range of the assay is 15-100,000,000 IU/mL. The Limit of Detection (LoD) is 12.0 IU/mL for EDTA plasma. The reference range is Not Detected. IU log10 See Note log 10 IU/mL 10/27/2024 11:03 AM EDT [facility] Comment:HCV RNA not detected . Plasma 10/25/2024 8:18 PM EDT 10/25/2024 10:27 PM EDT us Leandra Og MD LAB BLOOD ORDERABLES F inal Result [facility] [address] [place] [address], [facility] * Urinalysis w/Rfl to Microscopic (10/25/2024 8:18 PM EDT) Color, UA Yellow Yellow,Straw 10/25/2024 10:38 PM EDT [facility] Clarity, UA Clear Clear 10/25/2024 10:38 PM EDT [facility] Specific [place], UA 1.010 1.005 - 1.035 10/25/2024 10:38 PM EDT [facility] pH, UA 6.0 5.0 - 8.0 10/25/2024 10:38 PM EDT [facility] Protein, UA Negative Negative mg/dL 10/25/2024 10:38 PM EDT [facility] Glucose, UA Negative Negative mg/dL 10/25/2024 10:38 PM EDT [facility] Ketones, UA Negative Negative mg/dL 10/25/2024 10:38 PM EDT [facility] Bilirubin, UA Negative Negative 10/25/2024 10:38 PM EDT [facility] Blood, UA Negative Negative 10/25/2024 10:38 PM EDT [facility] Nitrite, UA Negative Negative 10/25/2024 10:38 PM EDT [facility] Urobilinogen, UA <2.0 0.2 - 1.9 mg/dL 10/25/2024 10:38 PM EDT [facility] Leukocyte Esterase, UA Negative Negative 10/25/2024 10:38 PM EDT [facility] Urine 10/25/2024 8:18 PM EDT 10/25/2024 10:35 PM EDT [facility] - 10/25/2024 10:38 PM EDT Microscopic testing is not performed when the dipstick is negative for blood, leukocyte, protein and nitrite. Leandra Og MD URINE ORDERABLES Final Result [facility] [address] * Toxoplasma gondii antibody, IgG (10/25/2024 8:18 PM EDT) [facility] Toxoplasma Gondii IgG <3.0 0.0 - 7.1 IU/mL 10/27/2024 7:55 AM EDT [facility] Comment: Negative <7.2 Equivocal 7.2 - 8.7 Positive >8.7 Serum 10/25/2024 8:18 PM EDT 10/27/2024 8:06 AM EDT [facility] - 10/27/2024 8:06 AM EDT PERFORMED AT: [facility] [address] [id number] MANAGER TRANSPLANT: Bassam Khalil, PhD PHONE: [phone] Leandra Og MD LAB BLOOD ORDERABLES F inal Result [facility] [address] [place] [facility]. [address] * Antibody Screen (10/25/2024 7:46 PM EDT) [facility] Antibody Screen Negative 10/25/2024 10:41 PM EDT [facility] Blood 10/25/2024 7:46 PM EDT 10/25/2024 9:54 PM EDT [facility] - 10/25/2024 10:44 PM EDT Testing performed by [facility] Ben Blake MD BLOOD BANK TEST ORDERABLES Fi nal Result [facility] [address] * ABO/Rh (10/25/2024 7:46 PM EDT) ABO Grouping O 10/25/2024 10:23 PM EDT [facility] Rh Type Positive 10/25/2024 10:23 PM EDT [facility] Blood 10/25/2024 7:46 PM EDT 10/25/2024 9:54 PM EDT us Ben Blake MD BLOOD BANK TEST ORDERABLES Fi nal Result [facility] [address] * (ABNORMAL) TEG-Standard Global Hemostasis (Rapid TEG with Heparin Effect, Contains a Baseline TEG) (10/25/2024 7:46 PM EDT) Citrated Kaolin Reaction Time (TEGHEPARINASE) 8.4 4.6 - 9.1 minutes 10/25/2024 10:49 PM EDT [facility] Citrated Rapid Teg Maximum Amplitude (TEGHEPARINASE) <40.0(L) 52.0 - 70.0 mm 10/25/2024 10:49 PM EDT [facility] Citrated Functional Fibrinogen Maximum Amplitude (TEGHEPARINASE) 6.7(L) 15.0 - 32.0 mm 10/25/2024 10:49 PM EDT [facility] Citrated Kaolin W/Heparinase Reaction Time (TEGHEPARINASE) 8.1 4.3 - 8.3 minutes 10/25/2024 10:49 PM EDT [facility] Citrated Kaolin K-Time (TEGHEPARINASE) 2.5(A) 0.8 - 2.1 minutes 10/25/2024 10:49 PM EDT [facility] Citrated Kaolin Angle (TEGHEPARINASE) 65.7(A) 63.0 - 78.0 degrees 10/25/2024 10:49 PM EDT [facility] Citrated Kaolin Maximum Amplitude (TEGHEPARINASE) <40.0(L) 52.0 - 69.0 mm 10/25/2024 10:49 PM EDT [facility] Citrated Functional Fibrinogen- Fibrinogen Level (TEGHEPARINASE) 159.5(L) 278.0 - 581.0 mg/dL 10/25/2024 10:49 PM EDT [facility] Whole Blood (Citrate) 10/25/2024 7:46 PM EDT 10/25/2024 10:15 PM EDT us Ben Blake MD LAB BLOOD ORDERABLES Final Re sult [facility] [address] [place] [address], [facility] documented in this encounter Visit Diagnoses Diagnosis Acute kidney injury superimposed on CKD ([facility])- Primary Prophylactic antibiotic Encounter for long-term (current) use of antibiotics Prolonged QT interval Nonspecific abnormal electrocardiogram (ECG) (EKG) Immunosuppression ([facility]) Abdominal pain, unspecified abdominal location Acute kidney injury superimposed on CKD ([facility]) documented in this encounter Administered Medications [...] Flannery RN)2057 (Not Given - Provider: Yvonne Glae RN - Reason: Patient/family refused) 1018 (Given [...] Sun10/29/24 at 1400 0852 (Given - Provider: Paluette Flannery RN)2056 (Given - Provider: Yvonne Gale [...] Vilchis, RN)0616 (Given - Provider: Vandana Vilchis, RN) Linked Groups Order Group 1: insulin [...] to med 250 mg, Oral, Once, On 11/01/25 at 2300, For 1 dose, Phosphorus Level [...] documented as of this encounter Care Teams Ferry Captain Relationship Specialty Start Date End Date Enedina Mcguire NP [address] [place] [address] PCP - General Internal Medicine 10/05/24 documented as of this encounter
--- OUTSIDE RECORDS SUMMARY | 2024-10-27 02:34 | XMS_ITS | Encounter Summary ---
Author Organization [facility] Address [facility] [place] [address] Care Team Providers Care Director Of Coding Name Role Phone Enedina Mcguire NP Primary Care Provider [phone] Source Comments This information has been disclosed [...] release of HIV test results or diagnoses. [id number] Reason for Visit * Auth/Cert (Routine) Specialty Diagnoses / Procedures Referred By Shane t Referred To Contact Surgical Intensive Care Diagnoses Liver transplant recipient (CMS-HCC) cirrhosis and CKD Procedures LIVER-KIDNEY TRANSPLANT [facility] SICU [address] [place] [address] Phone: tel: Referral ID Status Reason Start Date Expiration Date Visits Re quested Visits Authorized [id number] 1 1 Encounter Details Date Type Department Care Team (Late st Contact Info) Description 10/27/2024 2:34 AM EDT Anesthesia Event [facility] PERIOP [address] [place] [address] Rocky Manning MD [address] [place] [id number] Con Gramajo MD [address] [place] [address] Anesthesia Record Procedure Summary Procedure Name Responsible Anesthesiologist Anesthesia Start Time Anesthesia Stop Time Donor Kidney Transplant, Back Bench Preparation Donor Kidney, Baseline Kidney transplant biopsy, Insertion of Indwelling Stent, Removal of Perihepatic packing Rocky Manning MD 10/27/24 0234 10/27/24 0802 Events Date Time Event Comment 10/27/2024 0234 An Start 0239 An Start Data 0239 An Induction 0300 Quick Note OGT to LWS 0321 Time Out 0412 Quick Note Called blood ba nk for platelet and cryo 0443 Kidney Reperfusion 0455 Berkowitz Catheter Clamped 05 Berkowitz Catheter Clamp Removed 06 Provider Handoff Type of Ane sthetic: general Airway: Type: ETT Difficult BMV / Intubation: no Vascular Access: PIV(s) and Introducer Monitors: Standard ASA and arterial line Outstanding Issues to Address: hemodynamics / volume resuscitation and coagulation Disposition: ICU 0728 An Emergence 0735 Quick Note Waiting on ICU RT 0748 Quick Note 0749 Transport to ICU 0802 An Stop Meds Name Total propofol (DIPRIVAN) injection 10 mg/ml 4 0 mg rocuronium (ZEMURON) 10 mg/mL injection 140 mg sugammadex (BRIDION) IV injection 200 mg angiotensin II (GIAPREZA) 0. 005 mg/mL in sodium chloride 0.9 % 500 mL infusion 74,725 ng FentaNYL (SUBLIMAZE) 2500 mcg (10 mcg/mL ) in NSS 250 mL IV infusion 820 mcg insulin (HumuLIN R) infusion - TITRATABLE NURSING PROTOCOL (HYPERGLYCEMIA) 13.16 Units norepinephrine (LEVOPHED) 16 mg/250 mL ( 64 mcg/mL) infusion 2,918 mcg propofol (DIPRIVAN) infusion 10 mg/mL 20 2.13 mg vasopressin (VASOSTRICT) 40 units in sod ium chloride 0.9% 100 mL infusion 9.75 Units methylPREDNISolone sodium lees ccinate (SOLU-medrol) 250 mg in sodium chloride 0.9 % 100 mL IVPB 250 mg phenylephrine (HUNG-SYNEPHRINE) injection 100 mcg potassium chloride (KCl) 10 mEq in 100 m L IVPB 20 mEq calcium chloride 10% injection 1.75 g furosemide (LASIX) 10 mg/ml injection 10 0 mg heparin (porcine) injection 5,000 Units 5,000 Units AMPicillin 1 g in sodium chloride 0.9% 1 00 mL IVPB (Ivdp1Skn) 1 g cefTRIAXone (ROCEPHIN) 2 g in sodium chl oride 0.9 % 100 mL [id number] 2 g electrolyte-r (pH 7.4)(NORMOSOL-R pH 7.4 ) IV soln 1000 mL 2,000 mL electrolyte-r (pH 7.4)(NORMOSOL-R pH 7.4 ) IV soln 1000 mL 0 mL sodium chloride 0.9 % IV infusion 0 mL sodium chloride 0.9 % IV infusion 0 mL sodium chloride 0.9 % IV infusion 0 mL albumin human 5% 250 mL * Agents Name N2O O2 N2O Air Sevoflurane * Blood Name Total PRBC 700 mL FFP 600 mL PLATELETS 725 mL CRYOPRECIP 150 mL Lines, Drains, and [...] Fr. 10/26/24 0508 by Mak Maher RN Ureteral Drain/Stent 10/27/24; 0519; Lef t ureter (transplant ureter); 6 Fr.; Yes 10/27/24 0519 by Chinedu Quinn RN Incision 10/27/24; 0806; Abdomen; 4X4, TEGADERM 10/27/24 08 by Michela Amos RN Incision 10/25/24; 2128; Abdomen; ioban, dsd; 10/27/24; 0600 10/25/242128 by Mak Maher RN 10/27/24 06 by Shanel Shen RN Peripheral IV 10/25/24; 2130; Anterior, Distal, Left; Antecubital; Alcohol; None; Standard; Tolerated well 10/25/24 213 by Maureen Nelson RN 10/27/241999 by Solange Jj RN Arterial Line 10/25/24; 2245 (created via procedure documentation); 22; Right; Radial; Chlorhexidine; 1 10/25/24 2245 by Maureen Fleming MD 10/29/24 1200 by Soco Yap RN Urethral Catheter 10/25/24; 2325; Triple-lumen (3-Way); 18 Fr.; Tolerated well; Per order 10/25/24 2325 by Marty Clark RN 10/30/24 2252 by Vandana Vilchis RN Introducer 10/25/24; 2355 (created via procedure documentation); OR; Sterile; Internal [...] 0600 by Shell Biswas RN 10/27/241999 by oSlange Jj RN Drain 10/26/24; 0600; Bilary; Other [...] Sounds Confirmed 10/26/24 0622 by Martha Phillip, HASH SLINGER 10/27/24 1310 by Chinedu Almeida, HASH SLINGER Drain 10/27/24; 0636; Bulb ; Abdomen; Inferior, Right; 19 Fr.; 1109; Per order 10/27/24 0636 by Chinedu Quinn RN 10/30/24 1109 by Mery Sullivan RN documented in this encounter Social History [...] the past 12 months has th e [employer], gas, oil, or water Gooddler threatened to shut off services in your [...] living in a custodial (including now)? No 10/29/2024 Yearly Questionnaire Answer [...] as of this encounter Progress Notes * Rocky Manning MD - 10/28/2024 8:13 PM EDT Anesthesia Post Note Patient: Julien Anderson Procedure(s) Performed: Procedure(s): Donor Kidney Transplant, Back Bench Preparation Donor Kidney, Baseline Kidney transplant biopsy, Insertion of Indwelling Stent, Removal of Perihepatic packing Anesthesia type: general endotracheal Patient location: ICU Airway: Patent Post pain: Adequate analgesia Nausea / Vomiting: Absent Post-operative Hydration Status: Adequate Post assessment: no apparent anesthetic complications Last Vitals: Vitals: 10/28/24 1939 10/28/24 1940 10/28/24 19410/28/241999 BP: (!) 138/91 BP Location: Patient Position: BP Cuff Size: Pulse: 95 Resp: 16 Temp: 97.9 ??F (36.6 ??C) TempSrc: Oral SpO2: (!) 86% (!) 84% 100% 100% Weight: Height: Last Temperature: 97.9 ??F (36.6 ??C) (10/28/2024 8:00 PM) Post vital signs: stable Level of consciousness: awake and alert Complications: There were no known notable events for this encounter. documented in this encounter H&P Notes * Ben Blake MD - 10/26/2024 8:01 PM EDT [facility] DEPARTMENT OF ANESTHESIOLOGY PRE-PROCEDURAL EVALUATION Julien Anderson is a 39 y.o. year old male presenting for: Procedure(s): TRANSPLANT KIDNEY with bile duct reconstruction Surgeon: Harvey Domínguez III, MD Chief Complaint cirrhosis and CKD; Liver transplant recipient ([facility]-H[facility]) EtOH cirrhosis decompensated by esophageal varices, hepatic encephalopathy, NADIAY on CKD vs hepatorenal synd, coagulopathy Chronic anemia, hypokalemia Recent admission for spontaneous bacterial peritonitis with GNR's Received liver transplant on 10/26/24 Now for planned kidney Txp as staged SLK Has been in SICU, intubated, on pressors, hemodynamically stable since OLT Review of Systems Anesthesia Evaluation History of anesthetic complications (Prior neck fixation with reported difficult intubation. Multiple subsequent Gr 1 view intubations.) Cardiovascular: Hypertension is well controlled. (-) CAD, CABG/stent, dysrhythmias, angina, orthopnea. ECG reviewed. ROS comment: [facility] 10/14/24: IMPRESSIONS: - Patent coronary arteries without [...] is no recent study available for direct [id number]-ba-fzdu comparison. Stress echo 10/09/24: - Left ventricle: [...] at baseline or with provocation, shows no bienq-de-jdnf atrial level shunt. - Pulmonary arteries: Systolic [...] level. Pulmonary: (-) COPD, asthma. GI/Hepatic/Renal: (+) end stage liver disease (EtOH cirrhosis. Is now POD #1 from OLT). GERD is. Chronic renal disease (Hepatorenal; NOT currently on dialysis. Recent Cr baseline: 2.9-3.3), CRI. (-) liver disease (Is now s/p liver transplant). Comments: Did not tolerate BB for variceal [...] 10/14/2024 Procedure: Left Heart Cath; Surgeon: Irving Matat MD; Location: CARDIAC CATH LABS; Service:Cath; Laterality: [...] Strain: Low Risk (07/09/2024) Received from [facility] Overall Financial Resource Strain (CARDIA) [...] Answer (07/14/2024) Received from [facility] [place] of Occupational Health - Occupational Stress Questionnaire Feeling of Stress : Patient unable to answer Social Connections: Patient Unable To Answer (07/14/2024) Received from [facility] Social Connection and Isolation Panel [NHANES] Frequency of Communication with Friends and Family: Patient unable to answer Frequency of Social Gatherings with Friends and Family: Patient unable to answer Attends [employer] Services: Patient unable to answer Active Member [...] at 9:00 PM naloxone (NARCAN) 4 mg/actuation [place] Apply 1 spray in one nostril if needed. Call 911. May repeat dose in other nostril if no response in 3 minutes. Inpatient Meds: Scheduled: albumin human 5% 250 mL Intravenous Q3HRS [...] IVPB 372 mg Intravenous Q8H [START ON 10/27/2024] methylprednisolone (SOLU-medrol) IV 250 mg Intravenous Once Followed by [START ON 10/28/2024] methylPREDNISolone sod suc(PF) 125 [...] mycophenolate (CELLCEPT) IVPB 500 mg Intravenous BID Pharmacy to Discontinue all previous insulin and antidiabetic medications MISCELLANEOUS Once potassium chloride (KCl) 20 mEq Intravenous Q1H x 2 Continuous: angiotensin II (GIAPREZA) 0.005 mg/mL in sodium chloride 0.9 % 500 mL infusion 10 ng/kg/min (10/26/24 155) EPINEPHrine (ADRENALIN) 10 mg in sodium chloride 0.9 % 250 mL infusion Stopped (10/26/24 1251) fentanyl (SUBLIMAZE) IV infusion 150 mcg/hr (10/26/24 155) insulin regular in 0.9 % sodium chloride 2 Units/hr (10/26/24 1835) norepinephrine 9 mcg/min (10/26/24 155) propofol 20 mcg/kg/min (10/26/24 155) sodium chloride 0.9 % 75 mL/hr (10/26/24 1556) sodium chloride 0.9 % Stopped (10/26/24 1129) sodium chloride 0.9 % sodium chloride 0.9 % sodium chloride 0.9 % vasopressin 0.03 Units/min (10/26/24 1556) PRN: dextrose 10% in water OR dextrose 10% in water, fentanyl (SUBLIMAZE) IV infusion AND fentaNYL, glucose Vital Signs Wt Readings from Last 3 Encounters: 10/25/24 (!) 270 lb (122.5 kg) 10/10/24 (!) 263 lb 8 oz (119.5 kg) 09/05/24 (!) 262 lb 9.6 oz (119.1 kg) Ht Readings from Last 3 Encounters: 10/26/24 6' 4 (1.93 m) 10/16/24 6' 4 (1.93 m) 09/05/24 6' 4 (1.93 m) Temp Readings from Last 3 Encounters: 10/26/24 99.5 ??F (37.5 ??C) (Core) 10/17/24 98 ??F (36.7 ??C) (Oral) 09/09/24 97.9 ??F (36.6 ??C) (Oral) BP Readings from Last 3 Encounters: 10/26/24 119/64 10/17/24 104/54 09/09/24 126/69 Pulse Readings from Last 3 Encounters: 10/26/24 93 10/17/24 96 09/09/24 98 SpO2 Readings from Last 3 Encounters: 10/26/24 99% 10/17/24 98% 09/09/24 100% Physical Exam Airway: Comment: 11/20/23 Mask Ventilation: 3; Technique: Direct [...] technique, just Blade: 3 and Blade: 4 (+) intubated Dental: - No obvious cracked, loose, chipped, or missing teeth. Pulmonary: Breathing: unlabored PE comment: Vent Mode: VC-SIMV/PRVC FiO2: [30 %-60 %] 30 % S RR: [16] 16 S VT: [500 mL] 500 mL PEEP/CPAP: [0 cm H20-8 cm H20] 5 cm H20 Cardiovascular: Rhythm: regular Rate: normal Neuro/Musculoskeletal/Psych: Mental status: alert. PE comment: Opens eyes to voice. Nods appropriately to simple questions Abdominal: Current OB Status: Other Findings: Laboratory Data Lab Results Component Value Date WBC 10.0 10/26/2024 HGB 10.5 (L) 10/26/2024 HCT 30.2 (L) 10/26/2024 MCV 87.7 10/26/2024 PLT 48 (L) 10/26/2024 No results found for: ABORH Lab Results Component Value Date GLUCOSE 127 (H) 10/26/2024 BUN 63 (H) 10/26/2024 CO2 23 10/26/2024 CREATININE 2.85 (H) 10/26/2024 K 3.3 (L) 10/26/2024 NA 142 10/26/2024 CL 109 10/26/2024 CALCIUM 8.9 10/26/2024 ALBUMIN 3.0 (L) 10/26/2024 ALBUMIN 3.0 (L) 10/26/2024 PROT 3.8 (L) 10/26/2024 ALKPHOS 39 10/26/2024 ALT 458 (H) 10/26/2024 AST 374 (H) 10/26/2024 BILITOT 2.3 (H) 10/26/2024 Lab Results Component Value Date INR 1.7 (H) 10/26/2024 No results found for: PREGTESTUR , PREGSERUM , HCG , HCGQUANT Anesthesia Plan ASA 4 Current non-smoker Anesthesia Type: general endotracheal. PONV Risk Factors: current non-smoker, plan for postoperative opioid use. Induction: Inhalational and intravenous induction. Additional comments: Standard ASA monitors In-situ invasive monitors Return to SICU post-op Continued close monitoring of electrolytes Still vasoplegic (Levo: 5, Ang2: 5, Vaso 0.03), but improved from initial post-op Undergoing resuscitation of coagulopathy Plan/risks discussed with: Briefly told sedated patient about return to OR for kidney portion of procedure. Plan/risks not discussed. Blood products not discussed. Plan discussed with KRAFT DIGESTER OPERATOR and attending. no trial extubation [1] Allergies Allergen Reactions Adhesive Itching and Rash Tegaderm adhesive on Ivs, pt states its tolerable Duloxetine Other (See Comments) Became Manic documented in this encounter Plan of Treatment Not on file documented as of this encounter Visit Diagnoses * Transfer of Care - Bryce No DO - 10/27/2024 8:02 AM EDT Anesthesia Transfer of Care Note Patient: Julien Anderson Procedure(s) Performed: Procedure(s): TRANSPLANT KIDNEY with bile duct reconstruction Patient location: ICU Anesthesia type: general endotracheal Airway Device on Arrival to PACU/ICU: Endotracheal Tube IV Access: Peripheral and Central Line Monitors Recommended to be Used During PACU/ICU: Arterial Line, CVP, and PA Catheter Outstanding Issues to Address: Hemodynamics and Acid/Base/Electrolytes Level of Consciousness: sedated Post vital signs: Vitals: 10/27/24 0801 BP: 138/57 Pulse: 91 Resp: 16 Temp: SpO2: 100% Complications: There were no known notable events for this encounter. Date 10/26/24699 - 10/27/2465810/27/24699 - 10/28/2459 Shift 2942-2195 2530-2622 7961-8455 24 Hour Total 9898-9628 0140-6432 8267-0812 24 Hour Total INTAKE I.V.(mL/kg) 1450.8(11.8) 999.1(8.2) 2390.6(19.5) 4840.5(39.5) Volume (mL) Methylene Blue 453.8 32.9 486.7 Volume (mL) Insulin 78.5 31 8.5 118 Volume (mL) Epinephrine 45.7 45.7 Volume (mL) Propofol 127.2 115.4 39.8 282.3 Volume (mL) Fentanyl 91.8 126.2 88.1 306.1 Volume (mL) Vasopressin 31.4 37.3 15.3 84 Volume (mL) Norepinephrine 147.8 74 21 242.7 Volume (mL) (electrolyte-R (pH 7.4) (NORMOSOL-R pH 7.4) IV solution) 2000 2000 Volume (mL) (sodium chloride 0.9 % IV infusion) 474.6 582.5 217.9 1275.1 Blood 163 1435 3481 5079 FFP - Units 1 x 1 x Platelets - Units 1 x 1 x Cryo - Units 1 x 1 x 1 x 3 x Albumin 9086 739 7797 Volume (Transfuse Cryoprecipitate Transfusion Rate: Per dept routine) 87 87 Volume (Transfuse Cryoprecipitate Has consent been obtained? Yes; Transfusion Rate: Per dept routine) 76 76 Volume (Transfuse Cryoprecipitate Transfusion Rate: Per dept routine) 93 93 Volume (Transfuse Cryoprecipitate Transfusion Rate: Per dept routine) 92 92 Volume (Transfuse Fresh Frozen Plasma Transfusion Rate: Per dept routine) 298 298 Volume (Transfuse Cryoprecipitate Transfusion Rate: Per dept routine) 340 340 Volume (Transfuse Platelets Transfusion Rate: Per dept routine) 218 218 Volume (Transfuse RBC) 350 350 Volume (Transfuse Fresh Frozen Plasma) 300 300 Volume (Transfuse Platelets) 475 475 Volume (Transfuse Cryoprecipitate) 75 75 Volume (Transfuse Cryoprecipitate) 75 75 Volume (Transfuse Fresh Frozen Plasma) 300 300 Volume (Transfuse Platelets) 250 250 Volume (Transfuse RBC) 350 350 NG/GT 30 30 Flushes (mL) (NG/OG Tube Orogastric) 30 30 IV Piggyback 1510.3 1789.6 1035.4 4335.3 Volume (mL) (albumin human 5%) 485 485 Volume (mL) (angiotensin II (GIAPREZA) 0.005 mg/mL in sodium chloride 0.9 % 500 mL infusion) 20 121.9 43 184.9 Volume (mL) (potassium chloride (KCl)/Sterile water 50 mL 20 mEq/50 mL IVPB 20 mEq) 22.8 95.9 118.7 Volume (mL) (albumin human 25%) 125.5 125.5 Volume (mL) (isavuconazonium sulfate (CRESEMBA) 372 mg in sodium chloride 0.9 % 250 mL IVPB) 250 22.8 272.8 Volume (mL) (albumin human 5%) 950.1 323.5 1273.6 Volume (mL) (potassium chloride (KCl)/Sterile water 50 mL 20 mEq/50 mL IVPB 20 mEq) 118.7 118.7 Volume (mL) (albumin human 25%) 103.6 103.6 Volume (mL) (albumin human 25%) 80 80 Volume (mL) (potassium chloride (KCl)/Sterile water 100 mL 10 mEq/100 mL IVPB) 200 200 Volume (mL) (cefTRIAXone (ROCEPHIN) 2 g in sodium chloride 0.9 % 100 mL [id number]) 20 20 Volume (mL) (methylPREDNISolone sodium succinate (SOLU-medrol) 250 mg in sodium chloride 0.9 % 100 mL IVPB) 100 100 Volume (mL) (AMPicillin 1 g in sodium chloride 0.9% 100 mL IVPB ([id number])) 200.2 100 120 420.1 Volume (mL) (mycophenolate (CELLCEPT) 500 mg in dextrose 5% in water (D5W) 50 mL IVPB) 50 27.4 22.6100 Volume (mL) (albumin human 5%) 500 500 Volume (mL) (potassium chloride (KCl)/Sterile water 50 mL 20 mEq/50 mL IVPB 20 mEq) 133.1 133.1 Volume (mL) (magnesium sulfate in sterile water 100 mL IVPB 4 g) 99.3 99.3 Shift Total(mL/kg) 3124.1(25.5) 4253.7(34.7) 6907(56.4) 70258.8(116.6) OUTPUT Urine(mL/kg/hr) 955(1) 505(0.5) 690(0.7) 2150(0.7) 360 360 Urine 315 315 360 360 Output (mL) (IUC (Berkowitz) Triple-lumen (3-Way) 18 Fr.) 955 769 028 6960 Emesis/NG output 250 600 850 Drainage Output (mL) (NG/OG Tube Orogastric) 250 600 850 Drains 1700 4209 024 3340 Output (mL) (Drain Bilary Abdomen Inferior;Right) 100 150 250 Output (mL) ([REMOVED] Drain 1 Abdomen Right;Superior) 800 297 857 1919 Output (mL) (Drain 2 Left;Superior) 800 079 99 7314 Blood 300 300 Est Blood Loss 300 300 Shift Total(mL/kg) 2905(23.7) 2730(22.3) 1465(12) 7100(58) 360(2.9) 360(2.9) Weight (kg) 122.5 122.5 122.5 122.5 122.5 122.5 122.5 122.5 documented in this encounter Administered Medications Inactive Administered Medications - up to 3 most recent administrations Medication Order MAR Action Action Date Dose Rate Site albumin human 5% 250 mL, Intravenous, Every [...] 10/26/2024 10:16 PM EDT 83.3 m L/hr AMPicillin 1 g in sodium chloride 0.9% 100 mL IVPB ([id number]) 1 g, Intravenous, at 200 mL/hr, Every 6 hours scheduled (4 times per day), First dose on Sun10/26/24 at 0630, For 2 days, Dosage may need to be adjusted for renal dysfunction. Full dose is 1g IV q6h Use [id number] Adapter - Mix Thoroughly Before Administration New [...] Once underlying shock sufficiently improved, defined as ngb-uabzfhovwho-SN-presso r requirement ? 0.2 mcg/kg/min (norepinephrine equivalent) [...] 1:40 AM EDT 2.5 ng/kg/min 3.7 mL/hr calcium chloride injection Intravenous, PRN - One Step Medication Only, Starting on Sun10/27/24 at 0414, Anesthesia Intra-op Given 10/27/2024 7:19 AM EDT 0.5 g Given 10/27/2024 4:41 AM EDT 1 g Given 10/27/2024 4:14 AM EDT 0.25 g cefTRIAXone (ROCEPHIN) 2 g in sodium chloride 0.9 % 100 mL [id number] Intravenous, Administer over 30 Minutes, Continuous - One Step Medications Only New Bag 10/27/2024 6:38 AM EDT 2 g electrolyte-R (pH 7.4) (NORMOSOL-R pH 7.4) IV solution Intravenous, Continuous - One Step Medications Only, Starting on Sun10/27/24 at 0237, Anesthesia Intra-op New Bag 10/27/2024 6:48 AM EDT New Bag 10/27/2024 2:37 AM EDT electrolyte-R (pH 7.4) (NORMOSOL-R pH 7.4) IV solution Intravenous, Continuous - One Step Medications Only, Starting on Sun10/27/24 at 0316, Anesthesia Intra-op New Bag 10/27/2024 3:16 AM EDT furosemide (LASIX) injection Intravenous, PRN - One Step Medication Only, Starting on Sun10/27/24 at 0433, Anesthesia Intra-op Given 10/27/2024 4:33 AM EDT 100 mg heparin (porcine) injection 5,000 Units 5,000 Units, Subcutaneous, Every 8 hours scheduled (3 times per day), First dose on Sun10/26/24 at 0600 Given 11/02/2024 5:43 AM EDT 5,000 Units Abdominal Tissue Given 11/01/2024 9:19 PM EDT 5,000 Units A bdominal Tissue Given 11/01/2024 1:45 PM EDT 5,000 Units L eft Arm insulin (HumuLIN R) infusion - TITRATABLE NURSING PROTOCOL (HYPERGLYCEMIA) 0-28 Units/hr (0-28 mL/hr), Intravenous, Continuous, Starting on Sun10/26/24 at 0700, Discontinue all oral anti-diabetic medications. HIGH ALERT MEDICATION Rate/Dose Verify 10/27/2024 7:00 PM EDT 2.5 Units/hr 2.5 mL/hr Rate/Dose Verify 10/27/2024 6:00 PM EDT 2.5 Units/hr 2.5 m L/hr Rate/Dose Verify 10/27/2024 5:00 PM EDT 2.5 Units/hr 2.5 m L/hr methylPREDNISolone sodium succinate (SOLU-medrol) 250 mg in sodium chloride 0.9 % 100 mL IVPB 250 mg, Intravenous, at 200 mL/hr, Once, On Sun10/27/24 at 0900, For 1 dose, POD #1 - Dose, Post-op New Bag 10/27/2024 3:23 AM EDT 250 mg norepinephrine (LEVOPHED) 16 mg/250 mL (64 [...] PM EDT 4 mcg/min 3.8 mL /hr phenylephrine (HUNG-SYNEPHRINE) injection Intravenous, PRN - One Step Medication Only, Starting on Sun10/27/24 at 0337, Anesthesia Intra-op Given 10/27/2024 3:37 AM EDT 100 mcg potassium chloride (KCl)/Sterile water 100 mL 10 mEq/100 mL IVPB Intravenous, Administer over 60 Minutes, PRN - One Step Medication Only, Starting on Sun10/27/24 at 0342, Anesthesia Intra-op Given 10/27/2024 4:47 AM EDT 10 mEq Given 10/27/2024 3:42 AM EDT 10 mEq propofol (DIPRIVAN) infusion 10 mg/mL Intravenous, at 0-14.7 mL/hr, Continuous, Starting on Sun10/26/24 at 0630, Do not administer through the same I.V. catheter with blood or plasma. Tubing and any unused portions of propofol vials should be discarded after 12 hours. If patient is paralyzed: Do not titrate - follow policy [id number]. Start infusion if unable to maintain goal [...] AM EDT 15 mcg/kg/min 11 m L/hr propofol 10 mg/ml (DIPRIVAN) injection Intravenous, PRN - One Step Medication Only, Starting on Sun10/27/24 at 0237, Anesthesia Intra-op Given 10/27/2024 2:37 AM EDT 40 mg rocuronium (ZEMURON) injection Intravenous, PRN - One Step Medication Only, Starting on Sun10/27/24 at 0246, Anesthesia Intra-op Given 10/27/2024 6:43 AM EDT 20 mg Given 10/27/2024 5:42 AM EDT 20 mg Given 10/27/2024 4:53 AM EDT 20 mg sugammadex (BRIDION) IV solution Intravenous, PRN - One Step Medication Only, Starting on Sun10/27/24 at 0800, Anesthesia Intra-op Given 10/27/2024 8:00 AM EDT 200 mg Transfuse Cryoprecipitate Routine New Bag 10/27/2024 4:49 AM EDT Transfuse Cryoprecipitate Routine New Bag 10/27/2024 4:56 AM EDT Transfuse Fresh Frozen Plasma Routine New Bag 10/27/2024 4:07 AM EDT Transfuse Fresh Frozen Plasma Routine New Bag 10/27/2024 5:49 AM EDT Transfuse Platelets Routine New Bag 10/27/2024 4:24 AM EDT Transfuse Platelets Routine New Bag 10/27/2024 6:09 AM EDT Transfuse RBC Routine New Bag 10/27/2024 3:52 AM EDT Transfuse RBC Routine New Bag 10/27/2024 6:29 AM EDT vasopressin (VASOSTRICT) 40 units in sodium chloride 0.9% 100 mL infusion Intravenous, at 4.5 mL/hr, Continuous, Starting on 10/26/24 at 0630, CENTRAL LINE PREFERRED Rate/Dose Verify 10/27/2024 10:00 AM EDT 0.03 Units/min 4.5 mL/hr Rate/Dose Verify 10/27/2024 8:57 AM EDT 0.03 Units/min 4.5 mL/hr Rate/Dose Verify 10/27/2024 8:47 AM EDT 0.03 Units/min 4.5 mL/hr documented in this encounter Additional Health Concerns Infection Onset Date Last Indicated Resolved Time C. difficile 09/09/2024 09/09/2024 10/27/2024 8:30 AM EDT Assessment Noted Time PHQ-9 Depression Total Score: 17 025 11:00 AM EDT documented as of this encounter Care Teams Director Of Coding Relationship Specialty Start Date End Date Enedina Mcguire NP [address] [place] [id number] PCP - General Internal Medicine 10/05/24 documented as of this encounter
--- OUTSIDE RECORDS SUMMARY | 2024-11-04 08:40 | XMS_ITS | Encounter Summary ---
Author Organization [facility] Address [address] [place] [address] Care Team Providers Care Digital Ad Trafficker Name Role Phone Enedina Mcguire NP Primary Care Provider + [phone] Maureen Pantoja RN Unavailable Unavail able Source [...] release of HIV test results or diagnoses. [id number] Reason for Visit * Reason Comments Liver Transplant Follow-up Encounter Details Date Type Department Care Team (Late st Contact Info) Description 11/04/2024 8:40 AM EDT Office Visit [facility] Liver Transplant at [place] [id number] [facility] [address] [place] [address] Cosmo Pacheco MD [address] [place] [address] [address] [facility] [place] [address] Liver transplant recipient (CMS-HCC) (Primary [...] the past 12 months has th e [email or web address], [employer], oil, or water company threatened to shut [...] Nutrition: patient continues close f/u w/ transplant manager balance. - Bone health: Vit D level to be drawn ~POD#90. - Labs: Labs (CBC w/ diff, renal panel, liver panel, tacro level) twice a week. Lipid panel, [id number] Vit D level to be drawn at [...] management for this patient. Cosmo Pacheco MD Manager Of Production of Transplant Surgery [phone] (m) [1] Allergies Allergen Reactions Adhesive Itching and Rash Tegaderm adhesive on Ivs, pt states its tolerable Duloxetine Other (See Comments) Became Manic * Maureen Pantjoa RN - 11/04/2024 8:40 AM EDT After [...] encounter Visit Diagnoses Diagnosis Liver transplant recipient ([facility]-HCC)- Primary Alcoholic cirrhosis of liver with ascites ([facility]-HCC) Kidney transplant recipient Acute kidney injury superimposed on CKD ([facility]-HCC) CKD (chronic kidney disease) stage 4, GFR 15-29 ml/min ([facility]-HCC) Chronic kidney disease, Stage IV (severe) Immunosuppressive management encounter following liver transplant ([facility]) Abdominal pain, unspecified abdominal location documented in this encounter Additional Health Concerns Infection Onset Date Last Indicated Resolved Time 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
--- OUTSIDE RECORDS SUMMARY | 2024-11-04 10:10 | XMS_ITS | Encounter Summary ---
Author Organization [facility] Address [facility] [place] [address] Care Team Providers Care Full Time Babysitter Name Role Phone Enedina Mcguire NP Primary Care Provider + [phone] Maureen Pantoja RN Unavailable Unavail able Source [...] release of HIV test results or diagnoses. [id number] Reason for Visit * Reason Comments Kidney Transplant Follow-up Encounter Details Date Type Department Care Team (Late st Contact Info) Description 11/04/2024 10:10 AM EDT Office Visit [facility] Liver Transplant at [facility] [address] [facility] [address] [place] [address] Leisa Juarez MD [facility] 2nd Floor [place] [address] Kidney transplant recipient (Primary Dx); [...] the past 12 months has th e [employer], [employer], oil, or water [employer] threatened to shut off services in your [...] packing; Surgeon: Harvey Domínguez III, MD; Location: [facility]; Service: Transplant; Laterality: N/A; Family [...] Low Risk (07/09/2024) Received from [facility] Overall Financial Resource Strain (CARDIA) Difficulty of [...] No Physical Activity: Unknown (07/14/2024) Received from [facility] Exercise Vital Sign Days of Exercise per Week: Patient unable to answer Minutes of Exercise per Session: Not on file Stress: Patient Unable To Answer (07/14/2024) Received from [facility] [place] of Occupational Health - Occupational Stress Questionnaire Feeling of Stress : Patient unable to answer Social Connections: Patient Unable To Answer (07/14/2024) Received from [facility] Social Connection and Isolation Panel [NHANES] [...] times a day. naloxone (NARCAN) 4 mg/actuation [place] Apply 1 spray in one nostril if [...] Results Component Value Date PTH 36.0 10/25/2024 [id number] 7.1 (L) 10/08/2024 Hemoglobin A1C: Lab Results [...] The urinary bladder is collapsed with a Brekowitz balloon present.. Impression 1. Normal grayscale appearance [...] - 2.5 mg/dL 11/25/2024 10:20 AM EDT [facility] Plasma 11/25/2024 8:42 AM EDT 11/25/2024 9:47 AM EDT Yareli Zaragoza [facility] BLOOD ORDERABLES Denisse l Result Performing Organization Address City/[facility]/ZIP Co de Phone Number [facility] [address] * (ABNORMAL) Magnesium (11/11/2024 9:13 AM EDT) Magnesium 1.2(L) 1.5 - 2.5 mg/dL 11/11/2024 10:51 AM EDT [facility] Plasma 11/11/2024 9:13 AM EDT 11/11/2024 10:19 AM EDT Yareli Zaragoza [facility] BLOOD ORDERABLES Denisse l Result [facility] [address] * (ABNORMAL) Post Kidney Transplant Urine Culture (11/11/2024 9:13 AM EDT) Culture Result Enterococcus faecium(A) [facility] Comment: <1,000 cfu/mL Identified by MALDI-TOF MS No Further Workup Midstream Urine URINE SPECIMEN / Unknown 11/11/2024 9:13 AM EDT 11/11/2024 10:17 AM EDT Yraeli Zaragoza CNP MICROBIOLOGY - GENERAL OR DERABLES Final Result Performing Organization Address [facility] Co de Phone Number [facility] [address] [facility]. [address] * Protein / creatinine ratio, urine (11/11/2024 9:13 AM EDT) Creatinine, Urine 71.40 mg/dL 11/11/2024 10:38 AM EDT [facility] Comment:Reference range not established for this test. Total Protein, Ur 28 mg/dL 11/11/2024 10:38 AM EDT [facility] Comment:Reference range not established for this test. Prot/Creat Ratio, Ur 0.39 ratio 11/11/2024 10:38 AM EDT [facility] Urine 11/11/2024 9:13 AM EDT 11/11/2024 10:12 AM EDT us Yareli Zaragoza CNP URINE ORDERABLES Final Re sult Performing Organization Address [facility]/ZIP Co de Phone Number [facility] [address] [facility]. [address] * (ABNORMAL) Urinalysis w/Rfl to Microscopic (11/11/2024 9:13 AM EDT) Color, UA Straw Yellow,Straw 11/11/2024 10:36 AM EDT [facility] Clarity, UA Clear Clear 11/11/2024 10:36 AM EDT [facility] Specific [place], UA 1.015 1.005 - 1.035 11/11/2024 10:36 AM EDT [facility] pH, UA 6.0 5.0 - 8.0 11/11/2024 10:36 AM EDT [facility] Protein, UA Negative Negative mg/dL 11/11/2024 10:36 AM EDT [facility] Glucose, UA Negative Negative mg/dL 11/11/2024 10:36 AM EDT [facility] Ketones, UA Negative Negative mg/dL 11/11/2024 10:36 AM EDT [facility] Bilirubin, UA Negative Negative 11/11/2024 10:36 AM EDT [facility] Blood, UA Small(A) Negative 11/11/2024 10:36 AM EDT [facility] Nitrite, UA Negative Negative 11/11/2024 10:36 AM EDT [facility] Urobilinogen, UA <2.0 0.2 - 1.9 mg/dL 11/11/2024 10:36 AM EDT [facility] Leukocyte Esterase, UA Negative Negative 11/11/2024 10:36 AM EDT [facility] RBC, UA 13(H) 0 - 3 /HPF 11/11/2024 10:36 AM EDT [facility] WBC, UA 4 0 - 5 /HPF 11/11/2024 10:36 AM EDT [facility] Urine 11/11/2024 9:13 AM EDT 11/11/2024 10:10 AM EDT Yareli Zaragoza MACHINES TECHNICIAN URINE ORDERABLES Final Re sult Performing Organization Address [facility]/ZIP Co de Phone Number [facility] [address] * (ABNORMAL) Magnesium (11/04/2024 8:46 AM EDT) Magnesium 1.0(L) 1.5 - 2.5 mg/dL 11/04/2024 10:06 AM EDT [facility] Plasma 11/04/2024 8:46 AM EDT 11/04/2024 9:32 AM EDT Yareli Zaragoza [facility] BLOOD ORDERABLES Denisse l Result Performing Organization Address [facility]/ZIP Co de Phone Number [facility] [address] * (ABNORMAL) Post Kidney Transplant Urine Culture (11/04/2024 8:46 AM EDT) Culture Result Enterococcus faecium, Vancomycin Resistant(A) [facility] Comment: 1,000- <10,000 cfu/mL Identified [...] Organization Address [facility] Co de Phone Number [facility] [address] [facility]. [address] * Protein / creatinine ratio, urine (11/04/2024 8:46 AM EDT) Creatinine, Urine 37.30 mg/dL 11/04/2024 2:55 PM EDT [facility] Comment:Reference range not established for this test. Total Protein, Ur 42 mg/dL 11/04/2024 2:55 PM EDT [facility] Comment:Reference range not established for this test. Prot/Creat Ratio, Ur 1.13 ratio 11/04/2024 2:55 PM EDT [facility] Urine 11/04/2024 8:46 AM EDT 11/04/2024 9:32 AM EDT Yareli Zaragoza CNP URINE ORDERABLES Final Re sult Performing Organization Address [facility]/ZIP Co de Phone Number [facility] [address] [facility]. [address] * (ABNORMAL) Urinalysis w/Rfl to Microscopic (11/04/2024 8:46 AM EDT) Color, UA Straw Yellow,Straw 11/04/2024 10:07 AM EDT [facility] Clarity, UA Clear Clear 11/04/2024 10:07 AM EDT [facility] Specific [place], UA 1.012 1.005 - 1.035 11/04/2024 10:07 AM EDT [facility] pH, UA 6.5 5.0 - 8.0 11/04/2024 10:07 AM EDT [facility] Protein, UA Trace(A) Negative mg/dL 11/04/2024 10:07 AM EDT [facility] Glucose, UA Negative Negative mg/dL 11/04/2024 10:07 AM EDT [facility] Ketones, UA Negative Negative mg/dL 11/04/2024 10:07 AM EDT [facility] Bilirubin, UA Negative Negative 11/04/2024 10:07 AM EDT [facility] Blood, UA Large(A) Negative 11/04/2024 10:07 AM EDT [facility] Nitrite, UA Negative Negative 11/04/2024 10:07 AM EDT [facility] Urobilinogen, UA <2.0 0.2 - 1.9 mg/dL 11/04/2024 10:07 AM EDT [facility] Leukocyte Esterase, UA Negative Negative 11/04/2024 10:07 AM EDT [facility] RBC, UA >100(H) 0 - 3 /HPF 11/04/2024 10:07 AM EDT [facility] WBC, UA 2 0 - 5 /HPF 11/04/2024 10:07 AM EDT [facility] Bacteria, UA Rare(A) None Seen /HPF 11/04/2024 10:07 AM EDT [facility] Hyaline Casts, UA 3(H) 0 - 2 /LPF 11/04/2024 10:07 AM T [facility] Urine 11/04/2024 8:46 AM EDT 11/04/2024 9:33 AM EDT Yareli Zaragoza MACHINES TECHNICIAN URINE ORDERABLES Final Re sult [facility] [address] [place] [address], [facility] documented in this [...] as of this encounter Care Teams Full Time Babysitter Relationship Specialty Start Date End Date Enedina Mcguire NP [address] [place] [address] PCP - General Internal Medicine 10/05/24 Maureen Pantoja, ЮЛИЯ Txp Post Coordinator Transplant Hepatology 10/28/24 documented as of this encounter
--- OUTSIDE RECORDS SUMMARY | 2024-11-11 08:50 | XMS_ITS | Encounter Summary ---
Author Organization [facility] Address [facility] [place] [place] [address] Care Team Providers Care Electrical Worker Name Role Phone Enedina Mcguire NP Primary Care Provider + [phone] Maureen Pantoja RN Unavailable Unavail able Source [...] release of HIV test results or diagnoses. [id number] Reason for Visit * Reason Comments Labs Only Encounter Details Date Type Department Care Team (Late st Contact Info) Description 11/11/2024 8:50 AM EDT Specimen [facility] Outreach Lab [facility] [place] [address] Harvey Domínguez III, MD [facility] [address] [place] [address] Liver replaced by transplant ([facility]); Immunosuppressive management encounter following liver transplant ([facility]); Kidney transplant recipient Social History [...] the past 12 months has th e [employer], oil, or water company threatened to shut [...] - 2.5 mg/dL 11/11/2024 10:51 AM EDT [facility] Plasma 11/11/2024 9:13 AM EDT 11/11/2024 10:19 AM EDT Caron Santos CNP LAB BLOOD ORDERABLES Denisse l Result Performing Organization Address [facility] Co de Phone Number [facility] [address] [place] [address]. [address] * (ABNORMAL) Post Kidney Transplant Urine Culture (11/11/2024 9:13 AM EDT) Culture Result Enterococcus faecium(A) [facility] Comment: <1,000 cfu/mL Identified by MALDI-TOF MS No Further Workup Midstream Urine URINE SPECIMEN / Unknown 11/11/2024 9:13 AM EDT 11/11/2024 10:17 AM EDT Caron Santos RF MICROWAVE ENGINEER MICROBIOLOGY - GENERAL OR DERABLES Final Result Performing Organization Address [facility] de Phone Number [facility] [address] [place] [address]. [address] * Protein / creatinine ratio, urine (11/11/2024 9:13 AM EDT) Creatinine, Urine 71.40 mg/dL 11/11/2024 10:38 AM EDT [facility] Comment:Reference range not established for this test. Total Protein, Ur 28 mg/dL 11/11/2024 10:38 AM EDT [facility] Comment:Reference range not established for this test. Prot/Creat Ratio, Ur 0.39 ratio 11/11/2024 10:38 AM EDT [facility] Urine 11/11/2024 9:13 AM EDT 11/11/2024 10:12 AM EDT Caron Santos CNP URINE ORDERABLES Final Re sult Performing Organization Address City/[facility]/ZIP Co de Phone Number [facility] [address] * (ABNORMAL) Urinalysis w/Rfl to Microscopic (11/11/2024 9:13 AM EDT) Color, UA Straw Yellow,Straw 11/11/2024 10:36 AM EDT [facility] Clarity, UA Clear Clear 11/11/2024 10:36 AM EDT [facility] Specific [place], UA 1.015 1.005 - 1.035 11/11/2024 10:36 AM EDT [facility] pH, UA 6.0 5.0 - 8.0 11/11/2024 10:36 AM EDT [facility] Protein, UA Negative Negative mg/dL 11/11/2024 10:36 AM EDT [facility] Glucose, UA Negative Negative mg/dL 11/11/2024 10:36 AM EDT [facility] Ketones, UA Negative Negative mg/dL 11/11/2024 10:36 AM EDT [facility] Bilirubin, UA Negative Negative 11/11/2024 10:36 AM EDT [facility] Blood, UA Small(A) Negative 11/11/2024 10:36 AM EDT [facility] Nitrite, UA Negative Negative 11/11/2024 10:36 AM EDT [facility] Urobilinogen, UA <2.0 0.2 - 1.9 mg/dL 11/11/2024 10:36 AM EDT [facility] Leukocyte Esterase, UA Negative Negative 11/11/2024 10:36 AM EDT [facility] RBC, UA 13(H) 0 - 3 /HPF 11/11/2024 10:36 AM EDT [facility] WBC, UA 4 0 - 5 /HPF 11/11/2024 10:36 AM EDT [facility] Urine 11/11/2024 9:13 AM EDT 11/11/2024 10:10 AM EDT us Caron Santos RF MICROWAVE ENGINEER URINE ORDERABLES Final Re sult [facility] [address] * (ABNORMAL) Differential (11/11/2024 9:13 AM EDT) Neutrophils Relative 69.3 40.0 - 80.0 % 11/11/2024 10:31 AM EDT [facility] Lymphocytes Relative 17.6 15.0 - 45.0 % 11/11/2024 10:31 AM EDT [facility] Monocytes Relative 8.5 0.0 - 12.0 % 11/11/2024 10:31 AM EDT [facility] Eosinophils Relative 2.0 0.0 - 8.0 % 11/11/2024 10:31 AM EDT [facility] Basophils Relative 2.6(H) 0.0 - 1.0 % 11/11/2024 10:31 AM EDT [facility] nRBC 0 0 - 0 /100 WBC 11/11/2024 10:31 AM EDT [facility] Neutrophils Absolute 4,920 1,520 - 8,640 /uL 11/11/2024 10:31 AM EDT [facility] Lymphocytes Absolute 1,250 570 - 4,860 /uL 11/11/2024 10:31 AM EDT [facility] Monocytes Absolute 604 0 - 1,296 /uL 11/11/2024 10:31 AM EDT [facility] Eosinophils Absolute 142 0 - 864 /uL 11/11/2024 10:31 AM EDT [facility] Basophils Absolute 185(H) 0 - 108 /uL 11/11/2024 10:31 AM EDT [facility] Whole Blood 11/11/2024 9:13 AM EDT 11/11/2024 10:19 AM EDT Narrative [facility] - 11/11/2024 10:31 AM EDT Standing orders to be drawn: Every Sunday and before 9am and prior to patient taking morning medications. Liver Transplant Fax results to [phone] Call Critical results to [phone] us Harvey Domínguez III, MD LAB BLOOD ORDERABLE S Final Result [facility] [address] [place] Critical access hospital, [facility] * (ABNORMAL) CBC (11/11/2024 9:13 AM EDT) WBC 7.1 3.8 - 10.8 10E3/uL 11/11/2024 10:31 AM EDT [facility] RBC 3.42(L) 4.20 - 5.80 10E6/uL 11/11/2024 10:31 AM EDT [facility] Hemoglobin 10.6(L) 13.2 - 17.1 g/dL 11/11/2024 10:31 AM EDT [facility] Hematocrit 31.3(L) 38.5 - 50.0 % 11/11/2024 10:31 AM EDT [facility] MCV 91.5 80.0 - 100.0 fL 11/11/2024 10:31 AM EDT [facility] MCH 31.0 27.0 - 33.0 pg 11/11/2024 10:31 AM EDT [facility] MCHC 33.8 32.0 - 36.0 g/dL 11/11/2024 10:31 AM EDT [facility] RDW 20.5(H) 11.0 - 15.0 % 11/11/2024 10:31 AM EDT [facility] Platelets 308 140 - 400 10E3/uL 11/11/2024 10:31 AM EDT [facility] MPV 6.1(L) 7.5 - 11.5 fL 11/11/2024 10:31 AM EDT [facility] Whole Blood 11/11/2024 9:13 AM EDT 11/11/2024 10:19 AM EDT Narrative [facility] - 11/11/2024 10:31 AM EDT Standing orders to be drawn: Every Sunday and before 9am and prior to patient taking morning medications. Liver Transplant Fax results to [phone] Call Critical results to [phone] us Harvey Domínguez III, MD LAB BLOOD ORDERABLE S Final Result [facility] [address] [place] [address], [facility] * (ABNORMAL) Renal Function Panel w/EGFR (11/11/2024 9:13 AM EDT) Sodium 141 133 - 146 mmol/L 11/11/2024 10:51 AM EDT [facility] Potassium 4.6 3.5 - 5.3 mmol/L 11/11/2024 10:51 AM EDT [facility] Chloride 108 98 - 110 mmol/L 11/11/2024 10:51 AM EDT [facility] CO2 24 21 - 33 mmol/L 11/11/2024 10:51 AM EDT [facility] Anion Gap 9 3 - 16 mmol/L 11/11/2024 10:51 AM EDT [facility] BUN 27(H) 7 - 25 mg/dL 11/11/2024 10:51 AM EDT [facility] Creatinine 1.14 0.60 - 1.30 mg/dL 11/11/2024 10:51 AM EDT [facility] Glucose 97 70 - 100 mg/dL 11/11/2024 10:51 AM EDT [facility] Calcium 8.6 8.6 - 10.3 mg/dL 11/11/2024 10:51 AM EDT [facility] Phosphorus 4.4 2.1 - 4.7 mg/dL 11/11/2024 10:51 AM EDT [facility] Albumin 3.8 3.5 - 5.7 g/dL 11/11/2024 10:51 AM EDT [facility] Osmolality, Calculated 297 278 - 305 mOsm/kg 11/11/2024 10:51 AM EDT [facility] EGFR 83 11/11/2024 10:51 AM EDT [facility] Comment:As of 2021, [...] morning medications. Liver Transplant Fax results to [phone] Call Critical results to [phone] DO NOT REPLACE RENAL PANEL or HEPATIC FUNCTION PANEL w/ CMP, BMP or HEPATIC PROFILE us Harvey Domínguez III, MD LAB BLOOD ORDERABLE S Final Result [facility] [address] [place] [address], [facility] * (ABNORMAL) Hepatic Function Panel (11/11/2024 9:13 AM EDT) Total Bilirubin 1.0 0.0 - 1.5 mg/dL 11/11/2024 10:51 AM EDT [facility] Bilirubin, Direct 0.39 0.00 - 0.40 mg/dL 11/11/2024 10:51 AM EDT [facility] AST 15 13 - 39 U/L 11/11/2024 10:51 AM EDT [facility] ALT 26 7 - 52 U/L 11/11/2024 10:51 AM EDT [facility] Alkaline Phosphatase 125 36 - 125 U/L 11/11/2024 10:51 AM EDT [facility] Total Protein 5.9(L) 6.4 - 8.9 g/dL 11/11/2024 10:51 AM EDT [facility] Albumin 3.8 3.5 - 5.7 g/dL 11/11/2024 10:51 AM EDT [facility] Bilirubin, Indirect 0.61 0.00 - 1.10 mg/dL 11/11/2024 10:51 AM EDT [facility] Plasma 11/11/2024 9:13 AM EDT 11/11/2024 10:19 AM EDT Narrative [facility] - 11/11/2024 10:51 AM EDT Standing orders to be drawn: Every Sunday and before 9am and prior to patient taking morning medications. Liver Transplant Fax results to [phone] Call Critical results to [phone] DO NOT REPLACE RENAL PANEL or HEPATIC FUNCTION PANEL w/ CMP, BMP or HEPATIC PROFILE Harvey Domínguez III, MD LAB BLOOD ORDERABLE S Final Result Performing Organization Address City/[facility] Co de Phone Number [facility] [address] [facility]. [address] * Tacrolimus level (11/11/2024 9:13 AM EDT) [facility] Tacrolimus (LC-MS) 10.4 3.0 - 15.0 ng/mL 11/11/2024 1:22 PM EDT [facility] Comment:Performed via liquid chromatography tandem mass spectrometry. Detection limit: 1 ng/mL. Individual target concentrations may vary due to target organ and time after transplant. This test has been developed and its performance characteristics determined by [facility] which is certified [...] AM EDT 11/11/2024 10:19 AM EDT Narrative [facility] - 11/11/2024 1:22 PM EDT Standing orders to be drawn: Every Sunday and before 9am and prior to patient taking morning medications. Liver Transplant Fax results to [phone] Call Critical results to [phone] Harvey Domínguez III, MD LAB BLOOD ORDERABLE S Final Result Performing Organization Address City/[facility]/ZIP Co de Phone Number [facility] [address] documented in this encounter Visit Diagnoses [...] as of this encounter Care Teams Electrical Worker Relationship Specialty Start Date End Date Enedina Mcguire NP [address] [place] [address] PCP - General Internal Medicine 10/05/24 Maureen Pantoja, RN Txp Post Coordinator Transplant Hepatology 10/28/24 documented as of this encounter
--- OUTSIDE RECORDS SUMMARY | 2024-11-11 09:30 | XMS_ITS | Encounter Summary ---
Author Organization [facility] Address [address] [place] [address] Care Team Providers Care Bolt Labeler Name Role Phone Enedina Mcguire NP Primary Care Provider + [phone] Maureen Pantoja RN Unavailable Unavail able Source [...] release of HIV test results or diagnoses. [id number] Health Encounter Details Date Type Department Care Team (Late st Contact Info) Description 11/11/2024 9:30 AM EDT Office Visit [facility] Psychiatry Transplant at [facility] [address] [facility] [address] [place] [address] Craig Warren PsyD [address] [facility] [address] [place] [address] PTSD (post-traumatic stress disorder) (Primary [...] In the past 12 months has th [employer], [employer], or [employer] threatened to shut off services in [...] living in a residential (including now)? No 10/29/2024 Yearly Questionnaire Answer [...] alcohol and CKD IIIb/IV. Seen by this journalists and other writers for pre-surgical evaluation. PMH includes PTSD and [...] documented as of this encounter Care Teams Bolt Labeler Relationship Specialty Start Date End Date Enedina Mcguire NP [address] [place] [address] PCP - General Internal Medicine 10/05/24 Maureen Pantoja, RN Txp Post Coordinator Transplant Hepatology 10/28/24 documented as of this encounter
--- OUTSIDE RECORDS SUMMARY | 2024-11-11 10:00 | XMS_ITS | Encounter Summary ---
Author Organization [facility] Address [address] [place] [address] Care Team Providers Care Substation Manager Name Role Phone Enedina Mcguire NP Primary Care Provider + [phone] Maureen Pantoja RN Unavailable Unavail able Source [...] release of HIV test results or diagnoses. [id number] Reason for Visit * Reason Comments Liver Transplant Follow-up Encounter Details Date Type Department Care Team (Late st Contact Info) Description 11/11/2024 10:00 AM EDT Office Visit [facility] Liver Transplant at [place] [address] [place] [address] Cosmo Pacheco MD [address] [place], [place] [address] [place] [address] Harvey Domínguez III, MD [address] [place] [address] 3200 [place] [address] Encounter for therapeutic drug monitoring [...] the past 12 months has th e [employer], [employer], oil, or water company threatened to shut [...] = 12 units lancets (ACCU-CHEK SOFTCLIX LANCETS) [facility] Use to test blood sugar up to [...] times a day. naloxone (NARCAN) 4 mg/actuation [place] Apply 1 spray in one nostril if [...] Nutrition: patient continues close f/u w/ transplant hr leader. - Bone health: Vit D level to be drawn ~POD#90. - Labs: Labs (CBC w/ diff, renal panel, liver panel, tacro level) twice a week. Lipid panel, [id number] Vit D level to be drawn at POD#90, HgbA1C and Vit D level to be drawn at POD#180. - Follow up: RTC 2 weeks Kemar Sahni MD, Fellow, Multiorgan Abdominal Transplant Surgery. [facility]. [1] Allergies Allergen Reactions Adhesive Itching and Rash Tegaderm adhesive on Ivs, pt states its tolerable Duloxetine Other (See Comments) Became Manic Cosigned by Hravey Domínguez III, MD at 11/11/2024 4:13 PM [...] documented as of this encounter Care Teams Substation Manager Relationship Specialty Start Date End Date Enedina Mcguire NP [address] [place] [address] PCP - General Internal Medicine 10/05/24 Maureen Pantoja, RN Txp Post Coordinator Transplant Hepatology 10/28/24 documented as of this encounter
--- OUTSIDE RECORDS SUMMARY | 2024-11-11 10:30 | XMS_ITS | Encounter Summary ---
Author Organization [facility] Address [address] [place] [address] Care Team Providers Care Electric Car Operator Name Role Phone Enedina Mcguire NP Primary Care Provider [phone] Maureen Pantoja RN Unavailable Unavail able Source [...] release of HIV test results or diagnoses. [id number] Reason for Visit * Reason Comments Kidney Transplant Follow-up Encounter Details Date Type Department Care Team (Late st Contact Info) Description 11/11/2024 10:30 AM EDT Office Visit [facility] Liver Transplant at [facility] [address] [facility] [address] [place] [address] Unknown, Attending Provider Seble Colon [address] [facility], [facility] [address] [place] [address] Kidney replaced by transplant (Primary [...] (07/14/2024) Received from [facility] [place] of Occupational Health - Occupational Stress Questionnaire Feeling of Stress : Patient unable to answer Social Connections: Patient Unable To Answer (07/14/2024) Received from [facility] Social Connection and Isolation Panel [NHANES] Frequency of Communication with Friends and Family: Patient unable to answer Frequency of Social Gatherings with Friends and Family: Patient unable to answer Attends Christianity Services: Patient unable to answer Active Member [...] Lastdose 11/26/24 blood sugar diagnostic (GLUCOSE BLOOD) [facility] Use to test blood sugar up to 4 times a day. blood-glucose meter (TRUE METRIX GLUCOSE METER) [facility] Use to test blood [...] 12 units lancets (ACCU-CHEK SOFTCLIX LANCETS) [facility] Use to test blood [...] times a day. naloxone (NARCAN) 4 mg/actuation [place] Apply 1 spray in one nostril if [...] Results Component Value Date PTH 36.0 10/25/2024 [id number] 7.1 (L) 10/08/2024 Hemoglobin A1C: Lab Results [...] the note written by Dr Juarez and ZEEKIEL Santos on 11/04/2024. Lynn reviewed and updated [...] documented as of this encounter Care Teams Electric Car Operator Relationship Specialty Start Date End Date Enedina Mcguire NP [address] [place] [address] PCP - General Internal Medicine 10/05/24 Maureen Pantoja, RN Txp Post Coordinator Transplant Hepatology 10/28/24 documented as of this encounter
--- OUTSIDE RECORDS SUMMARY | 2024-11-25 10:20 | XMS_ITS | Encounter Summary ---
Author Organization [facility] Address [address] [place] [address] Care Team Providers Care Offset Press Operator Apprentice Name Role Phone Enedina Mcguire NP Primary Care Provider + [phone] Alicia Rankin RN Unavailable Unavail able Source [...] release of HIV test results or diagnoses. 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 - Bone health: Vit D level to be drawn ~POD#90. - Labs: Labs (CBC w/ diff, renal panel, liver panel, tacro level) twice a week. Lipid panel, [id number] Vit D level to be drawn at POD#90, HgbA1C and Vit D level to be drawn at POD#180. - Follow up: RTC 2 weeks Trinidad Godinez MD, Fellow, Multiorgan Abdominal Transplant Surgery. [facility]. [1] Allergies Allergen Reactions Adhesive [...] therapeutic drug monitoring- Primary S/P liver transplant ([facility]-H[facility]) Hypomagnesemia Disorders of magnesium metabolism Kidney [...] documented as of this encounter Care Teams Offset Press Operator Apprentice Relationship Specialty Start Date End Date Enedina Mcguire NP [address] [place] [address] PCP - General Internal Medicine 10/05/24 Alicia Rankin, ЮЛИЯ Txp Post Coordinator Transplant Hepatology 10/28/24 documented as of this encounter
--- OUTSIDE RECORDS SUMMARY | 2024-11-25 10:50 | XMS_ITS | Encounter Summary ---
Author Organization [facility] Address [address] [place] [address] Care Team Providers Care Reed Maker Name Role Phone Enedina Mcguire NP Primary Care Provider + [phone] Maureen Pantoja RN Unavailable Unavail able Source [...] release of HIV test results or diagnoses. [id number] Reason for Visit * Reason Comments Liver Transplant Follow-up Encounter Details Date Type Department Care Team (Late st Contact Info) Description 11/25/2024 10:50 AM EDT Office Visit [facility] Liver Transplant at [place] [address] [place] [address] Leisa Juarez MD [address] [place] [address] 2[address] Floor [place] [address] Seble Colon [facility] [address] [place] [address] NADIYA (acute kidney injury) ([facility]) (Primary Dx); Kidney replaced by transplant; Metabolic [...] the past 12 months has th e [employer], [employer], oil, or water company threatened to shut [...] Hypertension Other hyperlipidemia 07/26/2024 Renal cell carcinoma ([facility]) Thrombocytopenia ([facility]) Thyroid disease Surgical History: Past Surgical History: [...] Low Risk (07/09/2024) Received from [facility] Overall Financial Resource Strain (CARDIA) Difficulty [...] (07/14/2024) Received from [facility] Green[place] of Occupational Health - Occupational Stress [...] day. blood-glucose meter (TRUE METRIX GLUCOSE METER) [place] Use to test blood sugar up to [...] = 12 units lancets (ACCU-CHEK SOFTCLIX LANCETS) [place] Use to test blood sugar up to [...] times a day. naloxone (NARCAN) 4 mg/actuation [place] Apply 1 spray in one nostril if [...] Results Component Value Date PTH 36.0 10/25/2024 [id number] 7.1 (L) 10/08/2024 Hemoglobin A1C: Lab Results [...] as of this encounter Care Teams Reed Maker Relationship Specialty Start Date End Date Enedina Mcguire NP [address] [place], [place] [id number] PCP - General Internal Medicine 10/05/24 Maureen Pantoja, RN Txp Post Coordinator Transplant Hepatology 10/28/24 documented as of this encounter
--- OUTSIDE RECORDS SUMMARY | 2024-12-04 14:15 | XMS_ITS | Encounter Summary ---
Author Organization [facility] Address [address] [place] [address] Care Team Providers Care Rotational Moulding Operator Name Role Phone Enedina Mcguire APRN Primary Care Provider + Reason for Visit * Reason Comments Follow-up Neck Pain Med Management Encounter Details Date Type Department Care Team (Late st Contact Info) Description 12/04/2024 2:15 PM EDT Office Visit [facility]EMENT [address] [address] Dawn Christie PA-C [address] [facility] [address] [place] [address] Cervical radiculopathy (Primary Dx); Long-term use of [...] alcohol) 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 [facility] Utilities Answer Date Recorded In the past 12 months has [facility] [employer], gas, oil, or water [employer] threatened to shut off services in your [...] Brief Depression Severity Measure Score 0 10/02/2022 [facility] of Occupat ional Health - [...] GED or equivalent No 07/09/2024 Preferred Language Monegasque 07/09/2024 PHQ-2 Answer Date Recorded Patient Health [...] 2:15 PM EDT Referring Physician: Enedina Mcguire, OPERATOR ASSISTANT I CEMENTING [address] [place] [address] Primary Physician: Enedina Mcguire APRN CHIEF COMPLAINT [...] has had kidney and liver transplant at [facility] since his last office visit. Additionally, he has been started on Dilaudid 2 mg every 6 hours and gabapentin 100 mg 3 times daily by one of his transplant providers at the [facility]. He was previously prescribed tramadol 50 mg 1 to 2 tablets daily as needed. Patient reports he is following up weekly with his transplant providers at the [facility]. Continues to have some chronic neck [...] Surgeon: Presley Montes De Oca MD; Location: [facility]; Service: Gastroenterology; Laterality: N/A; ENDOSCOPY N/A 07/29/2022 Procedure: ESOPHAGOGASTRODUODENOSCOPY; Surgeon: Presley Montes De Oca MD; Location: [facility]; Service: Gastroenterology; Laterality: N/A; WITH APC [...] 6 hours from transplant providers at the [facility] for postoperative pain for the last [...] from his transplant team at the [facility]. Additionally, this did reveal positive THC. Tramadol [...] None indicated 9. Records: Kristofer reviewed; [facility] notes reviewed 10. Lifestyle goals: Follow-up 1 month for medication management [facility] Pain Management Dawn Christie PA-C documented in this encounter Plan of Treatment Upcoming Encounters Date Type Department Care Team (Late st Contact Info) Description 01/01/2025 2:15 PM EDT Office Visit [facility]EMENT [address] [facility] [address] [place] [address] Dawn Christie PA-C [address] [facility] [address] [place] [address] documented as of this encounter Results * (ABNORMAL) Urine Drug Screen - Urine, Clean Catch (12/04/2024 2:50 PM EDT) THC, Screen, Urine Positive(A) Negative 12/04 8:32 PM EDT [facility] Phencyclidine (PCP), Urine Negative Negative 12/04/2024 8:32 PM EDT [facility] Cocaine Screen, Urine Negative Negative 12/04/2024 8:32 PM EDT [facility] Methamphetamine, Ur Negative Negative 12/04/2024 8:32 PM EDT [facility] Opiate Screen Positive(A) Negative 12/04/2024 8:32 PM EDT [facility] Amphetamine Screen, Urine Negative Negative 12/04/2024 8:32 PM EDT [facility] Benzodiazepine Screen, Urine Negative Negative 12/04/2024 8:32 PM EDT [facility] Tricyclic Antidepressants Screen Negative Negative 12/04/2024 8:32 PM EDT [facility] Methadone Screen, Urine Negative Negative 12/04/2024 8:32 PM EDT [facility] Barbiturates Screen, Urine Negative Negative 12/04/2024 8:32 PM EDT LAB[facility] Oxycodone Screen, Urine Negative Negative 12/04/2024 8:32 PM EDT LAB[facility] Buprenorphine, Screen, Urine Negative Negative 12/04/2024 8:32 PM EDT LAB[facility]ORY Urine Urine specimen obtained by clean catch procedure / Unknown Collection / Unknown 12/04/2024 2:50 PM EDT 12/04/2024 2:54 PM EDT Narrative LAB[facility]ATORY - 12/04/2024 8:32 PM EDT Cutoff [...] Christie PA-C URINE ORDERABLES Final R esult LABORATORY
[address] [place] [address], documented in this encounter Visit Diagnoses Diagnosis [...] documented as of this encounter Care Teams Rotational Moulding Operator Relationship Specialty Start Date End Date Enedina Mcguire APRN [address] [place] [address] PCP - General Nurse Practitioner 10/27/24 documented as of this encounter
--- OUTSIDE RECORDS SUMMARY | 2024-12-04 14:55 | XMS_ITS | Encounter Summary ---
[facility] Address [address] [place] [address] Care Team Providers Care Sheet Metal Former Name Role Phone Enedina Mcguire APRN Primary Care Provider + Encounter Details Date Type Department Care Team (Late st Contact Info) Description 12/04/2024 2:55 PM EDT Lab [facility] [place] [address] [place] [address] Therapeutic drug monitoring Social History Tobacco Use Types Packs/Day Years Used Date Smoking Tobacco: Former Cigarettes 4 20 Passive Smoke Exposure: Past Smokeless Tobacco: Current Comments:MARIJUANA USE ABOUT 2X PER WEEK - reports no use 08-05-2024 Alcohol Use Standard Drinks/Week Comments Not Currently 0 (1 standard drink = 0.6 oz pure alcohol) 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 [facility] Utilities Answer Date Recorded In the past 12 months has [employer], [employer], oil, or water [employer] threatened to shut off services in your [...] Score 0 10/02/2022 [facility] [...] GED or equivalent No 07/09/2024 Preferred Language Danish 07/09/2024 PHQ-2 Answer Date Recorded Patient Health [...] Description 01/01/2025 2:15 PM EDT Office Visit [facility] PAIN MANAGEMENT [address] [address] Vazquez Christie PA-C [address] [place] [address] documented as of this encounter Procedures Procedure Name Priority Date/Time Associated Diagnosis Comments URINE DRUG SCREEN Routine 12/04/2024 2:5 0 PM EDT Therapeutic drug monitoring FENTANYL, URINE Routine 12/04/2024 2:50 PM EDT Therapeutic drug monitoring documented in this encounter Results * Fentanyl, Urine - Urine, Clean Catch (12/04/2024 2:50 PM EDT) Fentanyl, Urine Negative Negative 12/04/2024 9:15 PM EDT [facility] Urine Urine specimen obtained by clean catch procedure / Unknown Collection / Unknown 12/04/2024 2:50 PM EDT 12/04/2024 2:54 PM EDT Narrative [facility] - 12/04/2024 9:15 PM [...] Pratik PA-C URINE ORDERABLES Final R esult [facility]
[address] [place] [address], * (ABNORMAL) Urine Drug Screen - Urine, Clean Catch (12/04/2024 2:50 PM EDT) THC, Screen, Urine Positive(A) Negative 12/04 8:32 PM EDT [facility] Phencyclidine (PCP), Urine Negative Negative 12/04/2024 8:32 PM EDT [facility] Cocaine Screen, Urine Negative Negative 12/04/2024 8:32 PM EDT [facility] Methamphetamine, Ur Negative Negative 12/04/2024 8:32 PM EDT [facility] Opiate Screen Positive(A) Negative 12/04/2024 8:32 PM EDT [facility] Amphetamine Screen, Urine Negative Negative 12/04/2024 8:32 PM EDT [facility] Benzodiazepine Screen, Urine Negative Negative 12/04/2024 8:32 PM EDT [facility] Tricyclic Antidepressants Screen Negative Negative 12/04/2024 8:32 PM EDT [facility] Methadone Screen, Urine Negative Negative 12/04/2024 8:32 PM EDT [facility] Barbiturates Screen, Urine Negative Negative 12/04/2024 8:32 PM EDT [facility] Oxycodone Screen, Urine Negative Negative 12/04/2024 8:32 PM EDT [facility] Buprenorphine, Screen, Urine Negative Negative 12/04/2024 8:32 PM EDT [facility] Urine Urine specimen obtained by clean catch procedure / Unknown Collection / Unknown 12/04/2024 2:50 PM EDT 12/04/2024 2:54 PM EDT Narrative [facility] - 12/04/2024 8:32 PM [...] Otilio JACOME-Lalit URINE ORDERABLES Final R esult [facility]
[address] [place] [address], documented in this encounter Visit Diagnoses Diagnosis Therapeutic drug monitoring Encounter for therapeutic drug monitoring documented in this encounter Additional Health Concerns Assessment Noted Time PHQ-2 Depression Total Score: 1 12/31/19 24 3:25 PM EDT documented as of this encounter Care Teams Sheet Metal Former Relationship Specialty Start Date End Date Enedina Mcguire APRN [address] [place] [address] PCP - General Nurse Practitioner 10/27/24 documented as of this encounter
--- OUTSIDE RECORDS SUMMARY | 2024-12-09 09:50 | XMS_ITS | Encounter Summary ---
Author Organization [facility] Address [address] [place] [address] Care Team Providers Care Toilet Attendant Name Role Phone Enedina Mcguire NP Primary Care Provider + [phone] Maureen Pantoja RN Unavailable Unavail able Source [...] release of HIV test results or diagnoses. [id number] Health Encounter Details Date Type Department Care Team (Late st Contact Info) Description 12/09/2024 9:50 AM EDT Office Visit [facility] Liver Transplant at [place] [address] [address] [place] [address] Leisa Juarez MD [address] [place] [address] 2nd Floor [place] [address] Kidney transplant recipient (Primary Dx); Immunosuppressive management encounter following liver transplant ([facility]); Hypomagnesemia; S/P liver transplant ([facility]); Hypertension, unspecified type; Hyperparathyroidism ([facility]) Social History Tobacco Use Types Packs/Day [...] liver (CMS-HCC) Esophageal varices (CMS-HCC) Hepatorenal syndrome ([facility]) Hypertension Other hyperlipidemia 07/26/2024 Renal cell carcinoma (CMS-HCC) Thrombocytopenia ([facility]) Thyroid disease Surgical History: Past Surgical [...] Resource Strain: Low Risk (07/09/2024) Received from [facility] Overall Financial Resource Strain (CARDIA) Difficulty of [...] Physical Activity: Unknown (07/14/2024) Received from [facility] Exercise Vital Sign Days of Exercise per Week: Patient unable to answer Minutes of Exercise per Session: Not on file Stress: Patient Unable To Answer (07/14/2024) Received from [facility] [place] of Occupational Health - Occupational Stress Questionnaire Feeling of Stress : Patient unable to answer Social Connections: Patient Unable To Answer (07/14/2024) Received from [facility] Social Connection and Isolation Panel [NHANES] Frequency of Communication with Friends and Family: Patient unable to answer Frequency of Social Gatherings with Friends and Family: Patient unable to answer Attends Latter Day Services: Patient unable to answer Active Member [...] times a day. naloxone (NARCAN) 4 mg/actuation [place] Apply 1 spray in one nostril if [...] Results Component Value Date PTH 36.0 10/25/2024 [id number] 7.1 (L) 10/08/2024 Hemoglobin A1C: Lab Results [...] Discussed with Dr. Juarez. Lauren Santos, SAMSON, ACCOUNTS PAYABLE OR RECEIVABLE CLERK, NURSING INFORMATION SYSTEMS COORDINATOR- Transplant Nephrology [phone] Preferred contact: secure chat The HPI, ROS, [...] Primary Immunosuppressive management encounter following liver transplant ([facility]) Hypomagnesemia Disorders of magnesium metabolism S/P liver transplant ([facility]) Hypertension, unspecified type Hyperparathyroidism ([facility]) Hyperparathyroidism, unspecified documented in this encounter Additional Health Concerns Infection Onset Date Last Indicated Resolved Time 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
--- OUTSIDE RECORDS SUMMARY | 2024-12-09 10:20 | XMS_ITS | Encounter Summary ---
Author Organization [facility] Address [address] [place] [address] Care Team Providers Care Preservative Filler Machine Operator Name Role Phone Enedina Mcguire NP Primary Care Provider + [phone] Maureen Pantoja RN Unavailable Unavail able Source [...] release of HIV test results or diagnoses. [id number] Reason for Visit * Reason Comments Liver Transplant Follow-up Encounter Details Date Type Department Care Team (Late st Contact Info) Description 12/09/2024 10:20 AM EDT Office Visit [facility] Liver Transplant at [facility] [address] [facility] [address] [place] [address] Harvey Domínguez III, MD [address] [facility] [address] [place] [address] Encounter for therapeutic drug monitoring [...] the past 12 months has th e [employer], [employer], oil, or water [employer] threatened to shut off services in [...] Nutrition: patient continues close f/u w/ transplant perl software engineer. - Bone health: Vit D level [...] documented as of this encounter Care Teams Preservative Filler Machine Operator Relationship Specialty Start Date End Date Enedina Mcguire NP [address] [place] [address] PCP - General Internal Medicine 10/05/24 Maureen Pantoja, ЮЛИЯ Txp Post Coordinator Transplant Hepatology 10/28/24 documented as of this encounter
--- OUTSIDE RECORDS SUMMARY | 2024-12-09 11:45 | XMS_ITS | Encounter Summary ---
Author Organization [facility] Address [address] [place] [address] Care Team Providers Care Cylinder Head Assembler Name Role Phone Enedina Mcguire NP Primary Care Provider + [phone] Maureen Pantoja RN Unavailable Unavail able Source [...] release of HIV test results or diagnoses. [id number] Health Encounter Details Date Type Department Care Team (Late st Contact Info) Description 12/09/2024 11:45 AM EDT Office Visit [facility] Psychiatry Transplant at [place] [address] [phone] Rebekah Linares, [address] [place] [address] Alcohol use disorder (Primary Dx) [...] Recorded In the past 12 months has [employer], gas, oil, or water [employer] threatened to shut off services in your [...] as of this encounter Care Teams Cylinder Head Assembler Relationship Specialty Start Date End Date Enedina Mcguire NP [address] [place] [address] PCP - General Internal Medicine 10/05/24 Maureen Pantoja, RN Txp Post Coordinator Transplant Hepatology 10/28/24 documented as of this encounter
--- OUTSIDE RECORDS SUMMARY | 2024-12-18 14:00 | XMS_ITS | Encounter Summary ---
Author Organization [facility] Address [address] [place] [address] Care Team Providers Care Seam Feller Name Role Phone Enedina Mcguire NP Primary Care Provider + [phone] Maureen Pantoja RN Unavailable Unavail able Source [...] release of HIV test results or diagnoses. [id number] Health Encounter Details Date Type Department Care Team (Late st Contact Info) Description 12/18/2024 2:00 PM EDT Office Visit [facility] Psychiatry Transplant at [facility] [address] [facility] [address] [place] [address] Craig Warren PsyD [address] [facility] [address] [place] [address] Alcohol use disorder (Primary Dx); [...] the past 12 months has th e [employer], gas, oil, or water company threatened to [...] of this encounter Progress Notes * Craig Warren, Liz - 12/18/2024 2:00 PM EDT Transplant Psychology Outpatient Visit Julien Anderson is a 39 y.o. 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 Seen by this mortgage underwriter for pre-surgical evaluation. PMH includes [...] AUD Plan: No follow up with this mortgage underwriter indicated at this time Patient to follow with sponsor & counselor Patient to follow-up with medical providers. Visit: 2:07 to 2:48 pm CRAIG WARREN PsyD Clinical Psychologist TRANSPLANT PSYCH NOTEWRITER: Txp Psychology, Post-Txp: Post-Txp Psychology Referral: 01 N/A Patient Psychiatric History: Yes Txp Psych Clinical Course: Pre-surgical Eval and Post-Txp Psychotherapy documented in this encounter Plan [...] as of this encounter Care Teams Seam Feller Relationship Specialty Start Date End Date Enedina Mcguire NP [address] [place] [address] PCP - General Internal Medicine 10/05/24 Maureen Pantoja, ЮЛИЯ Txp Post Coordinator Transplant Hepatology 10/28/24 documented as of this encounter
--- OUTSIDE RECORDS SUMMARY | 2024-12-23 09:51 | XMS_ITS | Encounter Summary ---
Author Organization [facility] Address [address] [place] [address] Care Team Providers Care Landscaping Crew Leader Name Role Phone Enedina Mcguire NP Primary Care Provider + [phone] Maureen Pantoja RN Unavailable Unavail able Source [...] release of HIV test results or diagnoses. [id number] Health Encounter Details Date Type Department Care Team (Late st Contact Info) Description 11/27/2024 Chart Note [facility] Liver Transplant at [address] [place] [phone] Marlene Ro MA FK Pending 11/27 Labs [...] In the past 12 months has e [employer], gas, oil, or water [employer] threatened to shut off services in [...] 5.0 g/dL Blood Narrative Resulting Agency Comment [facility] Result [facility] Provider LAB BLOOD ORDERABLES Denisse l Result * Protime-INR (11/27/2024 7:50 AM EDT) Pathologist [facility] INR 0.93 0.9 - 1.1 Plasma Narrative Resulting Agency Comment [facility] Result [facility] Provider LAB BLOOD ORDERABLES Denisse l Result * (ABNORMAL) CBC and differential (11/27/2024 7:50 AM EDT) [facility] Hemoglobin 10.2(A) 13.5 - 17.5 g/dL [...] 6.6 10^3/mL Blood Narrative Resulting Agency Comment [facility] Result [facility] Provider LAB BLOOD ORDERABLES Denisse l Result * Hepatic Function Panel (11/27/2024 7:50 AM EDT) Pathologist [facility] Bilirubin, Direct 0.4 Bilirubin, Indirect 0.1 Alkaline Phosphatase 149 U/L ALT 19 U/L AST 13 U/L Total Bilirubin 0.5 0.1 - 1.4 mg/dL Total Protein 6.4 6.4 - 8.2 g/dL Plasma Narrative Resulting Agency Comment [facility] us Historical Provider LAB BLOOD ORDERABLES Denisse l Result documented in this encounter Visit Diagnoses Not on filedocumented in this encounter Additional Health Concerns Infection Onset Date Last Indicated Resolved Time 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
--- OUTSIDE RECORDS SUMMARY | 2024-12-23 09:51 | XMS_ITS | Encounter Summary ---
Author Organization [facility] Address [address] [place] [address] Care Team Providers Care Chief Engineer Research Name Role Phone Enedina Mcguire NP Primary Care Provider + [phone] Maureen Pantoja RN Unavailable Unavail able Source [...] release of HIV test results or diagnoses. [id number] Health Encounter Details Date Type Department Care Team (Late st Contact Info) Description 12/01/[address] [facility] Liver Transplant at [address] [place] [phone] Gladis Chisholm MA Social History Tobacco [...] Recorded In the past 12 months has [employer], gas, oil, or water [employer] threatened to shut off services in your [...] have tried to fax his orders through [employer] but was unsuccessful. The plan is to send him a copy via but wanted confirmation that he had a way to print them out. * Gladis Chisholm MA - 12/01/2024 3:08 PM EDT Pt called to request that an order for a urinalysis be put in for him to get done at [facility]. Please advise. documented in this encounter [...] as of this encounter Care Teams Chief Engineer Research Relationship Specialty Start Date End Date Enedina Mcguire NP [address] [place] [address] PCP - General Internal Medicine 10/05/24 Maureen Pantoja, RN Txp Post Coordinator Transplant Hepatology 10/28/24 documented as of this encounter
--- OUTSIDE RECORDS SUMMARY | 2024-12-23 09:52 | XMS_ITS | Encounter Summary ---
Author Organization [facility] Address [address] [place] [address] Care Team Providers Care Hand Printed Circuit Board Assembler Name Role Phone Enedina Mcguire NP Primary Care Provider + [phone] Maureen Pantoja RN Unavailable Unavail able Source [...] release of HIV test results or diagnoses. [id number] Health Encounter Details Date Type Department Care Team (Late st Contact Info) Description 12/03/2024 Chart Note [facility] Liver Transplant at [address] [place] [phone] Marlene Ro MA Social History Tobacco Use [...] Recorded In the past 12 months has [employer], gas, oil, or water [employer] threatened to shut off services in your [...] Resulting Agency Comment [facility] Result [facility] Provider LAB BLOOD ORDERABLES Denisse l Result * Creatinine, urine, random (12/02/2024 8:01 AM EDT) Creatinine, Urine 48 Urine Narrative Resulting Agency Comment [facility] Result [facility] Provider URINE ORDERABLES Final Re sult * Urinalysis w/Rfl to Microscopic (12/02/2024 8:01 AM EDT) Glucose, UA Negative Negative Ketones, UA Negative Negative Blood, UA Negative Negative Bilirubin, UA Negative Negative Urobilinogen, UA Normal Normal Protein, UA Negative Negative Leukocyte Esterase, UA Negative Negative pH, UA 6.0 4.5 - 8.0 Specific [place], UA 1.010 1.005 - 1.030 Clarity, UA Clear Clear Color, UA Yellow Light Yellow, Yellow Urine Narrative Resulting Agency Comment [facility] Result [facility] Provider URINE ORDERABLES Final Re sult [...] 6.0 10^3/mL Blood Narrative Resulting Agency Comment [facility] Provider LAB BLOOD ORDERABLES Denisse l Result * Urine Protein, Tot, Random (w/o Creat) (12/02/2024 8:01 AM EDT) Total Protein, Ur 10.0 Urine Narrative Resulting Agency Comment [facility] Result [facility] Provider URINE ORDERABLES Final Re sult * (ABNORMAL) Hepatic Function Panel (12/02/2024 8:01 AM EDT) Bilirubin, Direct 0.5 Bilirubin, Indirect 0.2 Alkaline Phosphatase 109 U/L ALT 16 U/L AST 15 U/L Total Bilirubin 0.7 0.1 - 1.4 mg/dL Total Protein 6.0(A) 6.4 - 8.2 g/dL Plasma Narrative Resulting Agency Comment [facility] Result [facility] Provider LAB BLOOD ORDERABLES Denisse l Result documented in this encounter Visit Diagnoses Not on filedocumented in this encounter Additional Health Concerns Infection Onset Date Last Indicated Resolved Time 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
--- OUTSIDE RECORDS SUMMARY | 2024-12-23 09:53 | XMS_ITS | Encounter Summary ---
Author Organization [facility] Address [address] [place] [address] Care Team Providers Care Director Drug Name Role Phone Enedina Mcguire NP Primary Care Provider + [phone] Maureen Pantoja RN Unavailable Unavail able Source [...] release of HIV test results or diagnoses. [id number] Health Encounter Details Date Type Department Care Team (Late st Contact Info) Description 11/10/2024 Orders Only [facility] Liver Transplant at [address] [place] [phone] Maureen Pantoja, ЮЛИЯ Liver transplant recipient ([facility]) (Primary Dx); Kidney transplant recipient; Immunosuppressive management encounter following liver transplant ([facility]) Social History Tobacco Use Types Packs/Day Years Used Date Smoking Tobacco: Former Cigarettes Smokeless Tobacco: Current Alcohol Use Standard Drinks/Week Comments Yes 0 (1 standard drink = 0.6 oz pure alcohol) History of alcohol abuse, reports no use in 3 week- typically endorses use as 4 glasses of wine a days Utilities Answer Date Recorded In the past 12 months has [employer], gas, oil, or water [facility] threatened to shut off services in your [...] as of this encounter Care Teams Director Drug Relationship Specialty Start Date End Date Enedina Mcguire NP [address] [place] [address] PCP - General Internal Medicine 10/05/24 Maureen Pantoja RN Txp Post Coordinator Transplant Hepatology 10/28/24 documented as of this encounter
--- OUTSIDE RECORDS SUMMARY | 2024-12-23 09:53 | XMS_ITS | Encounter Summary ---
Author Organization [facility] Address [address] [place] [address] Care Team Providers Care Concrete Vault Maker Name Role Phone Enedina Mcguire NP Primary Care Provider + [phone] Maureen Pantoja RN Unavailable Unavail able Source [...] release of HIV test results or diagnoses. [id number] Reason for Visit * Reason Comments Results Encounter Details Date Type Department Care Team (Late st Contact Info) Description 11/07/2024 Telephone [facility] Liver Transplant at [address] [address] Maureen Pantoja, RN Results Social [...] In the past 12 months has e [employer], gas, oil, or water [employer] threatened to shut off services in your [...] as of this encounter Care Teams Concrete Vault Maker Relationship Specialty Start Date End Date Enedina Mcguire NP [address] [place] [address] PCP - General Internal Medicine 10/05/24 Maureen Pantoja, RN Txp Post Coordinator Transplant Hepatology 10/28/24 documented as of this encounter
--- OUTSIDE RECORDS SUMMARY | 2024-12-23 09:53 | XMS_ITS | Encounter Summary ---
Author Organization [facility] Address [address] [place] [address] Care Team Providers Care Incendiaries Supervisor Name Role Phone Enedina Mcguire NP Primary Care Provider + [phone] Maureen Pantoja RN Unavailable Unavail able Source [...] release of HIV test results or diagnoses. [id number] Reason for Visit * Reason Comments Medication Management Requesting RX for New Medication Encounter Details Date Type Department Care Team (Late st Contact Info) Description 10/21/2024 Telephone [facility]ology at [facility] [address] [place] [phone] Gerri Peterson MD [address] [place] [address] Medication Management (Requesting RX for [...] In the past 12 months has th [employer], oil, or [employer] threatened to shut off services in [...] Pt called. States he was discharged from [facility] on 10[facility]17 with instructions to contact PCP to start Rx Torsemide 20 mg one tablet a day. PCP is out of town and was advised by hr manager in office to contact gastro MD to obtain Rx. Pt states he is retaining 30 pounds of fluid and needs MD to send a prescription or return call dali. Pt can be reached at [phone] documented in this encounter Plan of [...] documented as of this encounter Care Teams Incendiaries Supervisor Relationship Specialty Start Date End Date Enedina Mcguire NP [address] [place] [address] PCP - General Internal Medicine 10/05/24 Maureen Pantoja, RN Txp Post Coordinator Transplant Hepatology 10/28/24 documented as of this encounter
--- OUTSIDE RECORDS SUMMARY | 2024-12-23 09:53 | XMS_ITS | Encounter Summary ---
Author Organization [facility] Address [address] [place] [address] Care Team Providers Care Inspector Mechanical Name Role Phone Enedina Mcguire NP Primary Care Provider + [phone] Maureen Pantoja RN Unavailable Unavail able Source [...] release of HIV test results or diagnoses. [id number] Reason for Visit * Reason Comments Results Encounter Details Date Type Department Care Team (Riky st Contact Info) Description 11/11/2024 Telephone [facility] Liver Transplant at [address] [phone] Maureen Pantoja, RN Results Social [...] In the past 12 months has e [employer], gas, oil, or water [employer] threatened to shut off services in your [...] documented as of this encounter Care Teams Inspector Mechanical Relationship Specialty Start Date End Date Enedina Mcguire NP [address] [place] [address] PCP - General Internal Medicine 10/05/24 Maureen Pantoja, RN Txp Post Coordinator Transplant Hepatology 10/28/24 documented as of this encounter
--- OUTSIDE RECORDS SUMMARY | 2024-12-23 09:53 | XMS_ITS | Encounter Summary ---
Author Organization [facility] Address [address] [place] [address] Care Team Providers Care Wire Coiler Machine Operator Name Role Phone Enedina Mcguire NP Primary Care Provider + [phone] Maureen Pantoja RN Unavailable Unavail able Source [...] release of HIV test results or diagnoses. [id number] Health Encounter Details Date Type Department Care Team (Late st Contact Info) Description 11/10/2024 Orders Only [facility] Liver Transplant at [address] [place] [address] Maureen Pantoja, RN Social History Tobacco Use [...] Recorded In the past 12 months has [employer], gas, oil, or water [employer] threatened to shut off services in [...] as of this encounter Care Teams Wire Coiler Machine Operator Relationship Specialty Start Date End Date Enedina Mcguire NP [address] [place] [address] PCP - General Internal Medicine 10/05/24 Maureen Pantoja, ЮЛИЯ Txp Post Coordinator Transplant Hepatology 10/28/24 documented as of this encounter
--- OUTSIDE RECORDS SUMMARY | 2024-12-23 09:53 | XMS_ITS | Encounter Summary ---
Author Organization [facility] Address [address] [place] [address] Care Team Providers Care Forming Roll Operator Name Role Phone Enedina Mcguire NP Primary Care Provider + [phone] Alicia Rankin RN Unavailable Unavail able Source [...] release of HIV test results or diagnoses. [id number] Health Encounter Details Date Type Department Care Team (Late st Contact Info) Description 12/02/2024 Telephone [facility] Liver Transplant at [address] [address] Mitzy Gill MA Social History [...] In the past 12 months has [employer], gas, oil, or water company threatened to [...] advised he is almost out of FK. [facility] is working on getting an overnight shipment out to Pt but needs to confirm dosing on script. Sharda also brought the Pt on the line with us. I confirmed we have a prescription that was written on 11/25/24 but it was sent to [facility], not [facility]. Pt states he would like it re-routed to [facility] so they can get this out to him. I advised Pt and Sharda that I would have prescription updated and routed to [facility]. No further needs atthis time. documented in [...] documented as of this encounter Care Teams Forming Roll Operator Relationship Specialty Start Date End Date Enedina Mcguire NP [address] [place] [address] PCP - General Internal Medicine 10/05/24 Alicia Rankin, ЮЛИЯ Txp Post Coordinator Transplant Hepatology 10/28/24 documented as of this encounter
--- OUTSIDE RECORDS SUMMARY | 2024-12-23 09:53 | XMS_ITS | Encounter Summary ---
Author Organization [facility] Address [address] [place] [address] Care Team Providers Care Laboratory Apparatus Glass Grinder Name Role Phone Enedina Mcguire NP Primary Care Provider + [phone] Maureen Pantoja RN Unavailable Unavail able Source [...] release of HIV test results or diagnoses. [id number] Health Encounter Details Date Type Department Care Team (Late st Contact Info) Description 11/07/2024 Chart Note [facility] Liver Transplant at [address] [place] [phone] Marlene Ro MA FK Pending Social History [...] Recorded In the past 12 months has [employer], gas, oil, or water [employer] threatened to shut off services in [...] Blood Narrative Resulting Agency Comment [facility] Historical Provider LAB BLOOD ORDERABLES Denisse l [...] Blood Narrative Resulting Agency Comment [facility] Historical Provider LAB BLOOD ORDERABLES Denisse l Result * (ABNORMAL) Hepatic Function Panel (11/06/2024 8:36 AM EDT) Pathologist [facility] Bilirubin, Direct 0.7 Bilirubin, Indirect 0.2 Alkaline Phosphatase 142 U/L ALT 59 U/L AST 24 U/L Total Bilirubin 0.9 0.1 - 1.4 mg/dL Total Protein 5.4(A) 6.4 - 8.2 g/dL Plasma Narrative Resulting Agency Comment [facility] Historical Provider LAB BLOOD ORDERABLES Denisse l Result documented in this encounter Visit Diagnoses Not on filedocumented in this encounter Additional Health Concerns Infection Onset Date Last Indicated Resolved Time 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
--- OUTSIDE RECORDS SUMMARY | 2024-12-23 09:53 | XMS_ITS | Encounter Summary ---
Author Organization [facility] Address [facility] [place] [address] Care Team Providers Care Application Technician Name Role Phone Enedina Mcguire NP Primary Care Provider + [phone] Maureen Pantoja RN Unavailable Unavail able Source [...] release of HIV test results or diagnoses. 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 Encounter Details Date Type Department Care Team (Late st Contact Info) Description 11/09/2024 Telephone [facility] PATIENT SERVICES [address] [place] [address] Unknown, Attending Provider After Hours [...] Recorded In the past 12 months has [employer], gas, oil, or water [employer] threatened to shut off services in your [...] Caller to Patient and Callback: dionna anderson [phone] Patient of: liver txp txp team Nature of Call: Passing blood through stool states started this morning has had 3 bloody bowel movements kidney and liver txp done 2 weeks ago Label Stamper Provider Contacted: del turner Time and Method of Contact: via cell phone 1133 am connected coordinator to dionna at 1135 am Advise Caller: If provider does not call back within 30 minutes, please call us back. ROUTE TELEPHONE NOTE - Follow Qgenda and/or Route Directly to Provider. COPY this note into [facility] Teams chat. documented in this encounter Plan [...] as of this encounter Care Teams Application Technician Relationship Specialty Start Date End Date Enedina Mcguire NP [address] [place] [address] PCP - General Internal Medicine 10/05/24 Maureen Pantoja, RN Txp Post Coordinator Transplant Hepatology 10/28/24 documented as of this encounter
--- OUTSIDE RECORDS SUMMARY | 2024-12-23 09:53 | XMS_ITS | Encounter Summary ---
Author Organization [facility] Address [address] [place] [address] Care Team Providers Care Manager Traffic Name Role Phone Enedina Mcguire NP Primary Care Provider + [phone] Maureen Pantoja RN Unavailable Unavail able Source [...] release of HIV test results or diagnoses. [id number] Health Encounter Details Date Type Department Care Team (Late st Contact Info) Description 11/25/2024 Social Work [facility] Liver Transplant at [address] [place] [phone] Kaylin Willard MSW Social History Tobacco Use [...] Recorded In the past 12 months has [employer], gas, oil, or water [employer] threatened to shut off services in your [...] AM 09/29/2024 11:00 AM 11/25/2024 3:00 PM [id number] Score MAGALYS-7 Total Score 17 13 4 Scores are not concerning for depression/anxiety. No further SW needs identified. 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
--- OUTSIDE RECORDS SUMMARY | 2024-12-23 09:53 | XMS_ITS | Encounter Summary ---
Author Organization [facility] Address [address] [place] [address] Care Team Providers Care International Recruiter Name Role Phone Enedina Mcguire NP Primary Care Provider + [phone] Maureen Pantoja RN Unavailable Unavail able Source [...] release of HIV test results or diagnoses. [id number] Reason for Visit * Reason Comments Medication Refill Refill Request 1st A ttempt Encounter Details Date Type Department Care Team (Late st Contact Info) Description 10/20/2024 Refill [facility] Gastroenterology at [facility] Office [address] [place] [phone] Gerri Peterson MD [address] [place] [address] Social History Tobacco Use Types Packs/Day Years Used Date Smoking Tobacco: Former Cigarettes Smokeless Tobacco: Current Alcohol Use Standard Drinks/Week Comments Yes 0 (1 standard drink = 0.6 oz pure alcohol) History of alcohol abuse, reports no use in 3 week- typically endorses use as 4 glasses of wine a days Utilities Answer Date Recorded In the past 12 months has [employer], gas, oil, or water [employer] threatened to shut off services in [...] need filled today. PHARMACY & PHONE #: [facility] [address] [place], [place] [id number] [address] DATE OF LAST APPT: 09/02/2024 Gerri Peterson [...] documented as of this encounter Care Teams International Recruiter Relationship Specialty Start Date End Date Enedina Mcguire NP [address] [place] [address] PCP - General Internal Medicine 10/05/24 Maureen Pantoja, RN Txp Post Coordinator Transplant Hepatology 10/28/24 documented as of this encounter
--- OUTSIDE RECORDS SUMMARY | 2024-12-23 09:53 | XMS_ITS | Encounter Summary ---
Author Organization [facility] Address [address] [place] [address] Care Team Providers Care Crop Scout Name Role Phone Enedina Mcguire NP Primary Care Provider + [phone] Maureen Pantoja RN Unavailable Unavail able Source [...] release of HIV test results or diagnoses. [id number] Health Encounter Details Date Type Department Care Team (Late st Contact Info) Description 12/04/2024 Telephone [facility] Liver Transplant at [address] [address] Marlene Ro MA Social History [...] Recorded In the past 12 months has [employer], gas, oil, or water [employer] threatened to shut off services in [...] I transferred the call andadvised pt to [facility] if no answer. He called again [...] as of this encounter Care Teams Crop Scout Relationship Specialty Start Date End Date Enedina Mcguire NP [address] [place] [address] PCP - General Internal Medicine 10/05/24 Maureen Pantoja, RN Txp Post Coordinator Transplant Hepatology 10/28/24 documented as of this encounter
--- OUTSIDE RECORDS SUMMARY | 2024-12-23 09:53 | XMS_ITS | Encounter Summary ---
Author Organization [facility] Address [address] [place] [address] Care Team Providers Care Public Address Servicer Name Role Phone Enedina Mcguire NP Primary Care Provider + [phone] Maureen Pantoja RN Unavailable Unavail able Source [...] release of HIV test results or diagnoses. [id number] Health Encounter Details Date Type Department Care Team (Late st Contact Info) Description 11/07/2024 Telephone [facility] Liver Transplant at [address] [address] Marlene Ro MA Social History [...] Recorded In the past 12 months has [employer], gas, oil, or water [employer] threatened to shut off services in your [...] of this encounter Care Teams Public Address Servicer Relationship Specialty Start Date End Date Enedina Mcguire NP [address] [place] [address] PCP - General Internal Medicine 10/05/24 Maureen Pantoja, ЮЛИЯ Txp Post Coordinator Transplant Hepatology 10/28/24 documented as of this encounter
--- OUTSIDE RECORDS SUMMARY | 2024-12-23 09:53 | XMS_ITS | Encounter Summary ---
Author Organization [facility] Address [address] [place] [address] Care Team Providers Care Vice President Supply Chain Name Role Phone Enedina Mcguire NP Primary Care Provider + [phone] Maureen Pantoja RN Unavailable Unavail able Source [...] release of HIV test results or diagnoses. [id number] Reason for Visit * Reason Comments Medication Refill Refill Request 1st A ttempt Encounter Details Date Type Department Care Team (Late st Contact Info) Description 10/21/2024 Refill [facility] Gastroenterology at [facility] Office [address] [place] [phone] Gerri Peterson MD [address] [place] [address] Social History Tobacco Use Types Packs/Day Years Used Date Smoking Tobacco: Former Cigarettes Smokeless Tobacco: Current Alcohol Use Standard Drinks/Week Comments Yes 0 (1 standard drink = 0.6 oz pure alcohol) History of alcohol abuse, reports no use in 3 week- typically endorses use as 4 glasses of wine a days Utilities Answer Date Recorded In the past 12 months has [employer], gas, oil, or water [employer] threatened to shut off services in your [...] of this encounter Care Teams Vice President Supply Chain Relationship Specialty Start Date End Date Enedina Mcguire NP [address] [place] [address] PCP - General Internal Medicine 10/05/24 Maureen Pantoja, ЮЛИЯ Txp Post Coordinator Transplant Hepatology 10/28/24 documented as of this encounter
--- OUTSIDE RECORDS SUMMARY | 2024-12-23 09:55 | XMS_ITS | Encounter Summary ---
Author Organization [facility] Address [address] [place] [address] Care Team Providers Care Cattle Knocker Name Role Phone Enedina Mcguire NP Primary Care Provider + [phone] Maureen Pantoja RN Unavailable Unavail able Source [...] release of HIV test results or diagnoses. [id number] Health Encounter Details Date Type Department Care Team (Late st Contact Info) Description 11/24/2024 Orders Only [facility] [place] Liver Transplant at [address] [place] [address] Maureen Pantoja, RN Social History Tobacco Use [...] Recorded In the past 12 months has [facility], gas, oil, or water [employer] threatened to shut off services in [...] as of this encounter Care Teams Cattle Knocker Relationship Specialty Start Date End Date Enedina Mcguire NP [address] [place] [address] PCP - General Internal Medicine 10/05/24 Maureen Pantoja, ЮЛИЯ Txp Post Coordinator Transplant Hepatology 10/28/24 documented as of this encounter
--- OUTSIDE RECORDS SUMMARY | 2024-12-23 09:55 | XMS_ITS | Encounter Summary ---
Author Organization [facility] Address [address] [place] [address] Care Team Providers Care Panama Hat Blocker Name Role Phone Enedina Mcguire NP Primary Care Provider + [phone] Maureen Pantoja RN Unavailable Unavail able Source [...] release of HIV test results or diagnoses. [id number] Health Encounter Details Date Type Department Care Team (Late st Contact Info) Description 12/04/2024 Telephone [facility] Liver Transplant at [address] [place] [phone] Kaylin Willard MSW Social History Tobacco [...] Recorded In the past 12 months has [employer], gas, oil, or water [employer] threatened to shut off services in your [...] prior to transplant and completed treatment with [facility]. SW called and spoke to [...] meets with a counselor weekly and an MANAGER OF CREATIVE SERVICES. He has spoke with his MANAGER OF CREATIVE SERVICES and is interested in Naltrexone to help reduce cravings. He will require a letter from our teamto confirm he is able to take Naltrexone, SW to coordinate with RN coordinator. SW reviewed concerns for alcohol use post-transplant and patient was aware and agreeable. Patient to meet with MEREDITH and transplant CD counselor at next clinic appointment for additional support/follow-up. NUBIA Barros, 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
--- OUTSIDE RECORDS SUMMARY | 2024-12-23 09:56 | XMS_ITS | Encounter Summary ---
Author Organization [facility] Address [address] [place] [address] Care Team Providers Care Dielectric Machine Operator Name Role Phone Enedina Mcguire NP Primary Care Provider + [phone] Maureen Pantoja RN Unavailable Unavail able Source [...] release of HIV test results or diagnoses. [id number] Health Encounter Details Date Type Department Care Team (Late st Contact Info) Description 11/20/2024 Refill [facility] Liver Transplant at [address] [place] [phone] Maureen Pantoja, RN Social History Tobacco Use [...] Recorded In the past 12 months has [employer], gas, oil, or water [employer] threatened to shut off services in your [...] documented as of this encounter Care Teams Dielectric Machine Operator Relationship Specialty Start Date End Date Enedina Mcguire NP [address] [place] [address] PCP - General Internal Medicine 10/05/24 Maureen Pantoja, ЮЛИЯ Txp Post Coordinator Transplant Hepatology 10/28/24 documented as of this encounter
--- OUTSIDE RECORDS SUMMARY | 2024-12-23 09:56 | XMS_ITS | Encounter Summary ---
Author Organization [facility] Address [address] [place] [address] Care Team Providers Care Oracle Etl Developer Name Role Phone Enedina Mcguire NP Primary Care Provider + [phone] Maureen Pantoja RN Unavailable Unavail able Source [...] release of HIV test results or diagnoses. [id number] Health Encounter Details Date Type Department Care Team (Late st Contact Info) Description 11/21/2024 Chart Note [facility] Liver Transplant at [address] [place] [phone] Marlene Ro MA FK: 11/18 & 11/20 [...] Recorded In the past 12 months has [employer], gas, oil, or water [email or web address] threatened to shut off services in your [...] Tacrolimus level (11/20/2024 8:00 AM EDT) Pathologist [facility] Tacrolimus Lvl 11.5 6 - 15 ng/mL [...] 6.4 10^3/mL Blood Narrative Resulting Agency Comment [facility] Historical Provider LAB BLOOD ORDERABLES Denisse l Result * Hepatic Function Panel (11/20/2024 8:00 AM EDT) Bilirubin, Direct 0.4 Bilirubin, Indirect 0.1 Alkaline Phosphatase 285 U/L ALT 60 U/L AST 25 U/L Total Bilirubin 0.5 0.1 - 1.4 mg/dL Total Protein 6.4 6.4 - 8.2 g/dL Plasma Narrative Resulting Agency Comment [facility] Result [facility] MD LAB BLOOD ORDERABLES Denisse l Result * Tacrolimus level (11/18/2024 7:45 AM EDT) Pathologist [facility] Tacrolimus Lvl 12.5 6 - 15 ng/mL Whole Blood Result [facility] MD LAB BLOOD ORDERABLES Denisse l Result * (ABNORMAL) Hepatic Function Panel (11/18/2024 7:45 AM EDT) [facility] Bilirubin, Direct 0.5 Bilirubin, Indirect 0.1 Alkaline Phosphatase 189 U/L ALT 41 U/L AST 23 U/L Total Bilirubin 0.6 0.1 - 1.4 mg/dL Total Protein 6.1(A) 6.4 - 8.2 g/dL Plasma Narrative Resulting Agency Comment [facility] Result [facility] LAB BLOOD ORDERABLES Denisse l Result * (ABNORMAL) Renal Function Panel w/o EGFR (11/18/2024 7:45 AM EDT) [facility] Glucose 100 mg/dL BUN 43(A) 4 - [...] Blood Narrative Resulting Agency Comment [facility] Result [facility] MD LAB BLOOD ORDERABLES Denisse l Result * (ABNORMAL) CBC and differential (11/18/2024 7:45 AM EDT) [facility] Hemoglobin 10.2(A) 13.5 - 17.5 g/dL Hematocrit [...] 6.0 10^3/mL Blood Narrative Resulting Agency Comment [facility] [...] as of this encounter Care Teams Oracle Etl Developer Relationship Specialty Start Date End Date Enedina Mcguire NP [address] [place] [address] PCP - General Internal Medicine 10/05/24 Maureen Pantoja, RN Txp Post Coordinator Transplant Hepatology 10/28/24 documented as of this encounter
--- OUTSIDE RECORDS SUMMARY | 2024-12-23 09:56 | XMS_ITS | Encounter Summary ---
Author Organization [facility] Address [address] [place] [address] Care Team Providers Care Lease Picker Name Role Phone Enedina Mcguire NP Primary Care Provider + [phone] Maureen Pantoja RN Unavailable Unavail able Source [...] release of HIV test results or diagnoses. [id number] Reason for Visit * Reason Comments Results Encounter Details Date Type Department Care Team (Late st Contact Info) Description 12/04/2024 Telephone [facility] Liver Transplant at [address] [address] Maureen Pantoja, RN Results Social [...] In the past 12 months has [employer], gas, oil, or water [employer] threatened to shut off services in your [...] documented as of this encounter Care Teams Lease Picker Relationship Specialty Start Date End Date Enedina Mcguire NP [address] [place] [address] PCP - General Internal Medicine 10/05/24 Maureen Pantoja, RN Txp Post Coordinator Transplant Hepatology 10/28/24 documented as of this encounter
--- OUTSIDE RECORDS SUMMARY | 2024-12-23 09:56 | XMS_ITS | Encounter Summary ---
Author Organization [facility] Address [address] [place] [address] Care Team Providers Care Political Organizer Name Role Phone Enedina Mcguire NP Primary Care Provider + [phone] Maureen Pantoja RN Unavailable Unavail able Source [...] release of HIV test results or diagnoses. [id number] Health Encounter Details Date Type Department Care Team (Late st Contact Info) Description 11/21/2024 Orders Only [facility] [address] [place] [address] [place] [address] Vasile Gordillo MA Social History [...] Recorded In the past 12 months has [employer], gas, oil, or water [employer] threatened to shut off services in [...] documented as of this encounter Care Teams Political Organizer Relationship Specialty Start Date End Date Enedina Mcguier NP [address] [place] [address] PCP - General Internal Medicine 10/05/24 Maureen Pantoja, ЮЛИЯ Txp Post Coordinator Transplant Hepatology 10/28/24 documented as of this encounter
--- OUTSIDE RECORDS SUMMARY | 2024-12-23 09:56 | XMS_ITS | Encounter Summary ---
Author Organization [facility] Address [address] [place] [address] Care Team Providers Care Accounts Payable Professional Name Role Phone Enedina Mcguire NP Primary Care Provider + [phone] Maureen Pantoja RN Unavailable Unavail able Source [...] release of HIV test results or diagnoses. [id number] Health Encounter Details Date Type Department Care Team (Late st Contact Info) Description 11/20/2024 Refill [facility] Liver Transplant at [address] [place] [phone] Maureen Pantoja, RN Social History Tobacco Use [...] Recorded In the past 12 months has [employer], gas, oil, or water [employer] threatened to shut off services in your [...] documented as of this encounter Care Teams Accounts Payable Professional Relationship Specialty Start Date End Date Enedina Mcguire NP [address] [place] [address] PCP - General Internal Medicine 10/05/24 Maureen Pantoja, ЮЛИЯ Txp Post Coordinator Transplant Hepatology 10/28/24 documented as of this encounter
--- OUTSIDE RECORDS SUMMARY | 2024-12-23 09:56 | XMS_ITS | Encounter Summary ---
Author Organization [facility] Address [address] [place] [address] Care Team Providers Care Business Continuity Director Name Role Phone Enedina Mcguire NP Primary Care Provider + [phone] Maureen Pantoja RN Unavailable Unavail able Source [...] release of HIV test results or diagnoses. [id number] Reason for Visit * Reason Comments Results Encounter Details Date Type Department Care Team (Riky st Contact Info) Description 11/21/2024 Telephone [facility] Liver Transplant at [address] [address] Maureen Pantoja, RN Results [...] In the past 12 months has [employer], gas, oil, or water [employer] threatened to shut off services in [...] as of this encounter Care Teams Business Continuity Director Relationship Specialty Start Date End Date Enedina Mcguire NP [address] [place] [address] PCP - General Internal Medicine 10/05/24 Maureen Pantoja, RN Txp Post Coordinator Transplant Hepatology 10/28/24 documented as of this encounter
--- OUTSIDE RECORDS SUMMARY | 2024-12-23 09:59 | XMS_ITS | Encounter Summary ---
Author Organization [facility] Address [address] [place] [address] Care Team Providers Care Die Maker Apprentice Name Role Phone Enedina Mcguire NP Primary Care Provider [phone] Source Comments This information has been disclosed [...] release of HIV test results or diagnoses. [id number] Reason for Visit * Reason Comments DDLT patient instructions Encounter Details Date Type Department Care Team (Late st Contact Info) Description 10/25/2024 Telephone [facility] Liver Transplant at [address] [address] Krissy Crowell RN DDLT patient [...] Recorded In the past 12 months has [employer], gas, oil, or water [employer] threatened [...] Patient will arrive to PACU, ETA is [phone]. Nursing Dominatrix (Humaira), PACU (Emily), SICU (Lizeth), OR (Omar), [...] as of this encounter Care Teams Die Maker Apprentice Relationship Specialty Start Date End Date Enedina Mcguire NP [address] [place], [place] [id number] PCP - General Internal Medicine 10/05/24 documented as of this encounter
--- OUTSIDE RECORDS SUMMARY | 2024-12-23 09:59 | XMS_ITS | Encounter Summary ---
Author Organization [facility] Address [address] [place] [address] Care Team Providers Care Digital Business Analyst Name Role Phone Enedina Mcguire NP Primary Care Provider [phone] Source Comments This information has been disclosed [...] release of HIV test results or diagnoses. [id number] Encounter Details Date Type Department Care [...] Recorded In the past 12 months has [employer], oil, or water [employer] threatened to shut off services in your [...] as of this encounter Care Teams Digital Business Analyst Relationship Specialty Start Date End Date Enedina Mcguire NP [address] [place], [place] [id number] PCP - General Internal Medicine 10/05/24 documented as of this encounter
--- OUTSIDE RECORDS SUMMARY | 2024-12-23 09:59 | XMS_ITS | Encounter Summary ---
Author Organization [facility] Address [address] [place] [address] Care Team Providers Care Litigation Support Analyst Name Role Phone Enedina Mcguire NP Primary Care Provider [phone] Source Comments This information has been disclosed [...] release of HIV test results or diagnoses. [id number] Encounter Details Date Type Department Care Team (Late st Contact Info) Description 10/26/2024 Chart Note [facility] Liver Transplant at [address] [place] [phone] Geri Vasquez, ЮЛИЯ Social History Tobacco Use [...] Recorded In the past 12 months has [employer], gas, oil, or water [employer] threatened to shut off services in your [...] documented as of this encounter Care Teams Litigation Support Analyst Relationship Specialty Start Date End Date Enedina Mcguire NP [address] [place] [address] PCP - General Internal Medicine 10/05/24 documented as of this encounter
--- OUTSIDE RECORDS SUMMARY | 2024-12-23 10:01 | XMS_ITS | Encounter Summary ---
Author Organization [facility] Address [address] [place] [address] Care Team Providers Care Branding Machine Tender Name Role Phone Enedina Mcguire NP Primary Care Provider [phone] Source Comments This information has been disclosed [...] release of HIV test results or diagnoses. [id number] Encounter Details Date Type Department Care Team (Late st Contact Info) Description 10/26/2024 Chart Note [facility] Kidney Transplant at [address] [place] [phone] Geri Vasquez, ЮЛИЯ Social History Tobacco Use [...] Recorded In the past 12 months has [employer], gas, oil, or water [employer] threatened to shut off services in [...] documented as of this encounter Care Teams Branding Machine Tender Relationship Specialty Start Date End Date Enedina Mcguire NP [address] [place] [address] PCP - General Internal Medicine 10/05/24 documented as of this encounter
--- OUTSIDE RECORDS SUMMARY | 2024-12-23 10:01 | XMS_ITS | Encounter Summary ---
Author Organization [facility] Address [address] [place] [address] Care Team Providers Care Program Officer Name Role Phone Enedina Mcguire APRN Primary Care Provider + Reason for Visit * Reason Comments Med Refill Encounter Details Date Type Department Care Team (Late st Contact Info) Description 07/20/2022 Refill [facility] GASTROENTEROLOGY [address] [facility] [address] [place] [address] Lj Tapia APRN [address] [place] [address] Secondary esophageal varices without bleeding Social History [...] or training? Not on file Preferred Language Bengali 07/03/2022 Sex and Gender Information Value Date Recorded Sex Assigned at Male 08/20/2024 8:28 PM EDT Legal Sex Male 7:45 AM EDT Gender Identity Not on file Sexual Orientation Not on file documented as of this encounter Plan of Treatment Upcoming Encounters Date Type Department Care Team (Late st Contact Info) Description 01/01/2025 2:15 PM EDT Office Visit [facility] PAIN MANAGEMENT [address] [facility] [address] [place] [address] Vazquez Christie PA-C [address] [place] [address] documented as of this encounter Visit Diagnoses Diagnosis Secondary esophageal varices without bleeding documented in this encounter Additional Health Concerns Infection Onset Date Last Indicated Resolved Time COVID Screen (preop/placement) 07/28/2022 07/28/2022 07/29/2022 12:00 AM EDT documented as of this encounter Care Teams Program Officer Relationship Specialty Start Date End Date Enedina Mcguire APRN [address] [place] [address] PCP - General Nurse Practitioner 10/27/24 documented as of this encounter
--- OUTSIDE RECORDS SUMMARY | 2024-12-23 10:01 | XMS_ITS | Encounter Summary ---
Author Organization [facility] Address [address] [place] [address] Care Team Providers Care Health Education Coordinator Name Role Phone Enedina Mcguire NP Primary Care Provider [phone] Source Comments This information has been disclosed [...] release of HIV test results or diagnoses. [id number] Reason for Visit * Reason Comments Appointment Encounter Details Date Type Department Care Team ([facility] st Contact Info) Description 10/24/[address] [facility] Renal Hypertension Clinic at [address] [phone] Joann Davies MA Appointment Social History Tobacco [...] Recorded In the past 12 months has [employer], [employer], oil, or water [employer] threatened to shut off services in your [...] as of this encounter Care Teams Health Education Coordinator Relationship Specialty Start Date End Date Enedina Mcguire NP [address] [place] [address] PCP - General Internal Medicine 10/05/24 documented as of this encounter
--- OUTSIDE RECORDS SUMMARY | 2024-12-23 10:01 | XMS_ITS | Encounter Summary ---
Author Organization [facility] Address [address] [place] [address] Care Team Providers Care Screed Person Name Role Phone Enedina Mcguire APRN Primary Care Provider + Encounter Details Date Type Department Care Team ([facility] st Contact Info) Description 10/17/2024 Telephone [facility] INTERNAL MEDICINE [address] [place] [address] Enedina Mcguire APRN [address] [place] [address] Social History Tobacco Use Types [...] Recorded In the past 12 months has [employer], [employer], oil, or water [employer] threatened to shut off services in your [...] Brief Depression Severity Measure Score 0 10/02/2022 [facility] - Occupational Stress Questionnaire Answer Date [...] GED or equivalent No 07/09/2024 Preferred Language Icelandic 07/09/2024 PHQ-2 Answer Date Recorded Patient Health [...] PCP ON 10/27. PHARM: [facility] [place] [phone] CALL BACK: [phone] documented in this encounter Plan of Treatment Upcoming Encounters Date Type Department Care Team (Late st Contact Info) Description 01/01/2025 2:15 PM EDT Office Visit [facility] PAIN MANAGEMENT [address] [address] Vazquez Christie PA-C [address] [address] documented as of this encounter Visit Diagnoses Not on filedocumented in this encounter Additional Health Concerns Assessment Noted Time PHQ-2 Depression Total Score: 1 12/31/19 24 3:25 PM EDT documented as of this encounter Care Teams Screed Person Relationship Specialty Start Date End Date Enedina Mcguire APRN [address] [place] [address] PCP - General Nurse Practitioner 10/27/24 documented as of this encounter
--- OUTSIDE RECORDS SUMMARY | 2024-12-23 10:01 | XMS_ITS | Encounter Summary ---
Author Organization [facility] Address [facility] [place] [address] Care Team Providers Care Dentist Private Practice Name Role Phone Enedina Mcguire NP Primary Care Provider [phone] Source Comments This information has been disclosed [...] release of HIV test results or diagnoses. [id number] Health Encounter Details Date Type Department Care Team (Late st Contact Info) Description 10/27/2024 Orders Only [facility] [address] [place] [address] Abdulkadir Gaspar MD [address] [facility] [address] [place] [address] Social History Tobacco Use Types Packs/Day Years Used Date Smoking Tobacco: Former Cigarettes Smokeless Tobacco: Current Alcohol Use Standard Drinks/Week Comments Yes 0 (1 standard drink = 0.6 oz pure alcohol) History of alcohol abuse, reports no use in 3 week- typically endorses use as 4 glasses of wine a days Utilities Answer Date Recorded In the past 12 months has [employer], gas, oil, or water company threatened to [...] MD LAB BLOOD ORDERABLES Final Resul t [facility] [address] [place] [address] documented in this encounter Visit Diagnoses Not on filedocumented in this encounter Additional Health Concerns Infection Onset Date Last Indicated Resolved Time C. difficile 09/09/2024 09/09/2024 10/27/2024 8:30 AM EDT Assessment Noted Time PHQ-9 Depression Total Score: 17 025 11:00 AM EDT documented as of this encounter Care Teams Dentist Private Practice Relationship Specialty Start Date End Date Enedina Mcguire NP [address] [place] [address] PCP - General Internal Medicine 10/05/24 documented as of this encounter
--- OUTSIDE RECORDS SUMMARY | 2024-12-23 10:01 | XMS_ITS | Encounter Summary ---
Author Organization [facility] Address [address] [place] [address] Care Team Providers Care Uniform Patrol Police Officer Name Role Phone Enedina Mcguire NP Primary Care Provider [phone] Source Comments This information has been disclosed [...] release of HIV test results or diagnoses. [id number] Encounter Details Date Type Department Care Team (Late st Contact Info) Description 10/25/2024 Telephone [facility] Liver Transplant at [address] [address] Krissy Crowell RN Social History Tobacco Use [...] Recorded In the past 12 months has [employer], gas, oil, or water [employer] threatened to shut off services in your [...] granted: N/A OPO: CHACHA OPO Contact: Kiet [phone] Recent illnesses (surgeon aware) [x] Yes [] [...] need to bring equipment or solution to [facility]. They will get supplies from dialysis [...] Notifications: Department Phone Comments Time/Name Capacity Management [phone] Notified of patient's pending TXP ORGANS: Liver Kidney Time: Spoke to: OR [phone] OR scheduled for: per Dr. Domínguez Recipient in the OR time 10/25/2024 @ 2200 Acute donor Risk (according to OPTN policy) YES (HCV, HBV, HIV, COVID) Notified Donor is DCD Time: 1145, spoke to Faraz OR photographer news: Gladys RAMIREZ ORGAN Time: yes 1155 BLOOD BANK [phone] For Liver and Heart only Spoke to [place] 121 Nursing Production Troubleshooter [phone] For delayed call in [facility] 1158 PACU or Sameday [phone] Delayed call in: If recipient OR is 2 hrs or less from admission, call PACU/Sameday (basedon where nursing threshing department supervisor assigns patient) Abdominal Transplant 8CCP [phone] Transfer of care reported for abdominal txp Notified of dialysis type and last session if applicable Time: 8CCP photographer news: SICU [phone] Notify about abdominal txp admissions Time: 1215 SICU photographer news: Aleks Transplant Surgery Resident/PA QGenda Time: 1219 Spoke to: Dr. Corbett Transplant Surgery Fellow QGenda Time: 1200 Spoke to: Sveta Mojica MD Transplant Research Team [phone] Time: 1218 Spoke to: Macey If applicable, Dialysis Unit EMR Time: Spoke to: Pharmacy IV Room [phone] Liver Only Contact pharmacy to alert that HBIG will be needed when all the following are present: Donor: *HBsAg negative *HBV DNA/KIANA negative Recipient: *HBsAg positive *HBV DNA is detectable on most recent check Time: Spoke to: Heart Transplant CVICU [phone] Transfer of care reported for heart txp Time: CVICU photographer news: Email notification to Transplant Team(s) and OR photographer news. [Send the following information below to the [...] Venoveno bypass: No Donor info: Donor ID: [id number] Match ID: [id number] Anti-HBc: Negative HBV KIANA: Negative HBsAg: Negative [...] as of this encounter Care Teams Uniform Patrol Police Officer Relationship Specialty Start Date End Date Enedina Mcguire NP [address] [place] [address] PCP - General Internal Medicine 10/05/24 documented as of this encounter
--- OUTSIDE RECORDS SUMMARY | 2024-12-23 10:01 | XMS_ITS | Encounter Summary ---
Author Organization [facility] Address [address] [place] [address] Care Team Providers Care Tour Bus Driver Name Role Phone Enedina Mcguire NP Primary Care Provider + [phone] Alicia Rankin RN Unavailable Unavail able Source [...] release of HIV test results or diagnoses. [id number] Reason for Visit * Reason Comments Results Encounter Details Date Type Department Care Team (Riky st Contact Info) Description 11/26/2024 Telephone [facility] Liver Transplant at [address] [address] Alicia Rankin, RN Results Social [...] In the past 12 months has e [employer], gas, oil, or water [email or web address] threatened to shut off services in your [...] as of this encounter Care Teams Tour Bus Driver Relationship Specialty Start Date End Date Enedina Mcguire NP [address] [place] [address] PCP - General Internal Medicine 10/05/24 Alicia Rankin, RN Txp Post Coordinator Transplant Hepatology 10/28/24 documented as of this encounter
--- OUTSIDE RECORDS SUMMARY | 2024-12-23 10:02 | XMS_ITS | Encounter Summary ---
Author Organization [facility] Address [address] [place] [address] Care Team Providers Care Master Fire Control Technician Name Role Phone Enedina Mcguire APRN Primary Care Provider + Encounter Details Date Type Department Care Team (Late st Contact Info) Description 12/05/2024 Telephone [facility] PAIN MANAGEMENT [address] [place] [address] Vazquez Christie PA-C [address] [place] [address] Social History Tobacco Use Types Packs/Day Years Used Date Smoking Tobacco: Former Cigarettes 4 20 Passive Smoke Exposure: Past Smokeless Tobacco: Current Comments:MARIJUANA USE ABOUT 2X PER WEEK - reports no use 08-05-2024 Alcohol Use Standard Drinks/Week Comments Not Currently 0 (1 standard drink = 0.6 oz pure alcohol) 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 [facility] Utilities Answer Date Recorded In the past 12 months has [employer], [employer], oil, or water [employer] threatened to shut off services in your [...] 0 10/02/2022 [facility] - Occupational Stress Questionnaire [...] GED or equivalent No 07/09/2024 Preferred Language Yemeni 07/09/2024 PHQ-2 Answer Date Recorded Patient Health [...] [facility] PA[facility]NAGEMENT [address] [facility] [address] [place] [address] Vazquez Christie PA-C [address] [facility] [address] [place] [address] documented as of this encounter Visit Diagnoses Not on filedocumented in this encounter Additional Health Concerns Assessment Noted Time PHQ-2 Depression Total Score: 1 12/31/19 24 3:25 PM EDT documented as of this encounter Care Teams Master Fire Control Technician Relationship Specialty Start Date End Date Enedina Mcguire APRN [address] [place] [address] PCP - General Nurse Practitioner 10/27/24 documented as of this encounter
--- OUTSIDE RECORDS SUMMARY | 2024-12-23 10:02 | XMS_ITS | Encounter Summary ---
[facility] Organization [facility] Address [address] [place] [address] Care Team Providers Care Apartment Locator Name Role Phone Enedina Mcguire APRN Primary Care Provider + Encounter Details Date Type Department Care Team ([facility] st Contact Info) Description 10/07/2024 Results Follow-Up [facility] INTERNAL MEDICINE [address] [place] [address] Endeina Mcguire APRN [address] [place], [place] [id number] Social History Tobacco Use Types Packs/Day Years Used Date Smoking Tobacco: Former Cigarettes 4 20 Passive Smoke Exposure: Past Smokeless Tobacco: Current Comments:MARIJUANA USE ABOUT 2X PER WEEK - reports no use 08-05-2024 Alcohol Use Standard Drinks/Week Comments Not Currently 0 (1 standard drink = 0.6 oz pure alcohol) 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 [facility] Utilities Answer Date Recorded In the past 12 months has [employer], [employer], oil, or water [employer] threatened to shut off services in your [...] 0 10/02/2022 [facility] - [...] Description 01/01/2025 2:15 PM EDT Office Visit [facility] PAIN MANAGEMENT [address] [address] Vazquez Christie PA-C [address] [place] [address] documented as of this encounter Visit Diagnoses Not on filedocumented in this encounter Additional Health Concerns Assessment Noted Time PHQ-2 Depression Total Score: 1 12/31/19 24 3:25 PM EDT documented as of this encounter Care Teams Apartment Locator Relationship Specialty Start Date End Date Enedina Mcguire APRN [address] [place] [address] PCP - General Nurse Practitioner 10/27/24 documented as of this encounter
--- OUTSIDE RECORDS SUMMARY | 2024-12-23 10:02 | XMS_ITS | Clinical Summary ---
Author Organization Healthcare Address [address] [place] [address] Care Team Providers Care Basket Assembler Name Role Phone Lj Tapia Rohini RICKS Unavailable [phone] Enedina Mcguire APRN Primary Care Provider + [...] Type Department Care Team Description 11/27/2024 Telephone [facility] Nephrology, Bone & Mineral Metabolism [address], [address] [place] [address] Chelsy Villanueva 09/29/2024 2:20 PM EDT Office Visit [facility] Nephrology, Bone & Mineral Metabolism [address], [address] [place] [address] Yovanny Flores MD NADIYA (acute kidney injury) ([facility]) (Primary Dx); Portal hypertension ([facility]); Secondary esophageal varices with bleeding ([facility]) 09/29/2024 Travel 09/25/2024 Telephone [facility] Nephrology, Bone & Mineral Metabolism [address], [address] [place] [address] Chelsy Villanueva from Last 3 [...] often do you attend chur ch or islam services? Patient unable to answer 07/14/2024 Do [...] Questionnaire-2 Score 2 09[facility]20[facility] - Occupational Stress Questionnaire [...] a nursing home (including now)? No 11/19/2023 PHQ-9 Answer [...] drink first t deborah in the morning (EYE-FURNACE REPAIR MECHANIC) to steady your nerves or to get [...] Upcoming Encounters Date Type Department Care Team ([facility] st Contact Info) Description 01/08/2025 3:20 PM EDT Office [facility] [place] [address], [address] [place] [address] Vincent Braga MD [address] [place] [id number] Health Maintenance Due Date Last Done Comments [facility]-Infant/Child/Adol SDOH Screenings 1983 [facility]-Hepatitis A Vaccines (1 of 2 - Risk 2-dose series) 2002 [facility]-Pneumococcal Vaccine: Pediatrics (0 to 5 Years) and At-Risk Patients (6 to 49 Years) (1 of 2 - PCV) 2002 HPV Vaccines (1 - 3-dose SCDM series) 2010 [facility]-Hepatitis B Vaccines (2 of 3 - 19+ 3-dose series) 10/11/2010 09/13/2010 [facility]-Varicella Vaccines (2 of 2 - 13+ 2-dose series) 10/11/2010 09/13/2010 [id number] Vaccine (4 - season) 2024 03/17/2021, 07/25/2020, 06/27/2020 [facility]-Influenza Vaccine (#1) 2025 03/12/2024, 10 / [facility]- SDOH Screenings 01/14/2025 [facility]-Adult SDOH Screenings [...] this topic Medical Devices Implanted Type Area School Psychologist Assistant Device Identifier Shelf Expiration Date Model / Serial / Lot Concerto Mission Coil-07/03/2022 Implanted:06/15 by Timmy Brunner MD (Quantity not on file) Coil Abdomen Description:Multiple Coil Co ncerto Pgla Mission Detach COILS implanted on 07/03/2022 by Timmy Brunner MD at [facility]--info can be found in Care Everywhere for [facility] as of 11/15/23 Dona Coil-07/03/2022 Implanted:06/15 by Timmy Brunner MD (Quantity not on file) Coil Abdomen [employer] Description:Coil Emb Dona 3.7/Implanted: Qty: 1 on 07/03/2022 by Timmy Brunner MD at [facility] Plate Plate N/A: Neck Plug Vasc Anton Emb Amplatzer Implanted:06/15 by Timmy Brunner MD (Quantity not on file) Plug Other Vein / / [id number] Description:Plug Vasc Anton Em b Ampltz .[id number] - [id number] Implanted: Qty: 1 on 07/03/2022 by Timmy Brunner MD at [facility] Stent Gastro Panc 5fr 5cm - [id number] Implanted:Qty: 1 on 11/20/2023 by Devang Mcghee, ЮЛИЯ at [facility] Pancreas Cloud [id number] 08/13/2026 [id number] / / [id number] Procedures Procedure Name Priority Date/Time Associated Diagnosis [...] EST 07/14/2024 4:56 PM EST Laureano Salinas FLOOR RENOVATOR, DNP LAB BLOOD ORDERA BLES Final Result [facility] [address] [place] [address] * Hepatitis C Antibody (07/14/2024 4:31 PM EST) Hepatitis C Antibody Negative Negative 07/14/2024 5:27 PM EST [facility] Blood Venous blood specimen / Unknown Venipuncture / Unknown 07/14/2024 4:31 PM EST 07/14/2024 4:54 PM EST Laureano Salinas APRN, DNP LAB BLOOD ORDERA BLES Final Result [facility] [address] [place] [address] from Last 3 Months or Most Recently Relevant to Health Maintenance Insurance [facility] Advance Directives * Full Code (Latest Code Status on File) Date Activated Date Inactivated Comments 07/11/2024 11:04 PM 07/23/2024 6:27 PM Question Answer Comments Patient has decision-making capacity? Yes * Full Code Date Activated Date Inactivated Comments 11/14/2023 10:15 PM 11/27/2023 9:08 PM Question Answer Comments Patient has decision-making capacity? Yes Care Teams Basket Assembler Relationship Specialty Start Date End Date Enedina Mcguire APRN [address] [place] [address] PCP - General 12/04/22 Lj Tapia APRN [address] [place] [address] Referring Physician Gastroenterology 07/18/22
--- OUTSIDE RECORDS SUMMARY | 2024-12-23 10:02 | XMS_ITS | Encounter Summary ---
Author Organization [facility] Address [address] [place] [address] Care Team Providers Care Alumni Secretary Name Role Phone Enedina Mcguire NP Primary Care Provider + [phone] Maureen Pantoja RN Unavailable Unavail able Source [...] release of HIV test results or diagnoses. [id number] Reason for Visit * Reason Comments Results Encounter Details Date Type Department Care Team ([facility]ik[facility] st Contact Info) Description 12/12/2024 Telephone [facility] Liver Transplant at [address] [address] Maureen Pantoja, RN Results Social [...] In the past 12 months has e [employer], gas, oil, or water [email or web address] threatened to shut off services in your [...] as of this encounter Care Teams Alumni Secretary Relationship Specialty Start Date End Date Enedina Mcguire NP [address] [place] [address] PCP - General Internal Medicine 10/05/24 Maureen Pantoja, RN Txp Post Coordinator Transplant Hepatology 10/28/24 documented as of this encounter
--- OUTSIDE RECORDS SUMMARY | 2024-12-23 10:02 | XMS_ITS | Encounter Summary ---
Author Organization [facility] Address [address] [place] [address] Care Team Providers Care Milk Driver Name Role Phone Enedina Mcguire APRN [...] alcohol) 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 [facility] Utilities Answer Date Recorded In the past 12 months has [employer], gas, oil, or water [employer] threatened to shut off services in [...] Brief Depression Severity Measure Score 0 10/02/2022 [facility] Occupat ional Health - Occupational Stress [...] Office Visit [facility] PAIN [facility]NAGEMENT [address] [address] Vazquez Christie PA-C [address] [place] [address] documented as of this encounter Visit Diagnoses Not on filedocumented in this encounter Additional Health Concerns Assessment Noted Time PHQ-2 Depression Total Score: 1 12/31/19 24 3:25 PM EDT documented as of this encounter Care Teams Milk Driver Relationship Specialty Start Date End Date Enedina Mcguire APRN [address] [place] [address] PCP - General Nurse Practitioner 10/27/24 documented as of this encounter
--- OUTSIDE RECORDS SUMMARY | 2024-12-23 10:02 | XMS_ITS | Encounter Summary ---
Author Organization Healthcare Address [address] [place] [address] Care Team Providers Care Supervisor Water Softener Service Name Role Phone Jony Conde MD Primary Care Provider [phone] Lj Tapia ROLLED HAM LACER Unavailable [phone] Enedina Mcguire ROLLED HAM LACER Primary Care Provider + Nuria Fall VP PRODUCT MANAGEMENT Unavailable Unavaila ble Encounter Details Date Type Department Care Team (Late st Contact Info) Description 07/02/2022 Orders Only External Location [address] [place] [phone] Provider, External Social History Tobacco Use Types [...] PM EDT Office Visit [facility] [place] [address], [address] [place] [address] Vincent Braga MD [address] [facility] [address] [place] [phone] documented as of this encounter Procedures Procedure [...] on filedocumented in this encounter Care Teams Supervisor Water Softener Service Relationship Specialty Start Date End Date Jony Conde MD [address] [place] [address] [address] [place] [address] PCP - General 07/18/22 12/03/22 Enedina Mcguire APRN [address] [place] [address] PCP - General 12/04/22 Lj Tapia APRN [facility] [place] [address] Referring Physician Gastroenterology 07/18/22 Nuria Fall LPN [facility] TCM Nurse 07/24/24 08/23/24 documented as of this encounter
--- OUTSIDE RECORDS SUMMARY | 2024-12-23 10:02 | XMS_ITS | Encounter Summary ---
Author Organization [facility] Address [address] [place] [address] Care Team Providers Care Feed Miller Name Role Phone Enedina Mcguire NP Primary Care Provider + [phone] Maureen Pantoja RN Unavailable Unavail able Source [...] release of HIV test results or diagnoses. [id number] Health Encounter Details Date Type Department Care Team (Late st Contact Info) Description 11/04/2024 Results Follow-Up [facility] Liver Transplant at [address] [address] Maureen Pantoja, ЮЛИЯ Tacrolimus level, Hepatic Function [...] Recorded In the past 12 months has [employer], gas, oil, or water [employer] threatened to shut off services in your [...] as of this encounter Care Teams Feed Miller Relationship Specialty Start Date End Date Enedina Mcguire NP [address] [place] [address] PCP - General Internal Medicine 10/05/24 Maureen Pantoja, RN Txp Post Coordinator Transplant Hepatology 10/28/24 documented as of this encounter
--- OUTSIDE RECORDS SUMMARY | 2024-12-23 10:02 | XMS_ITS | Encounter Summary ---
Author Organization [facility] Address [address] [place] [address] Care Team Providers Care Trailer Chief Name Role Phone Enedina Mcguire NP Primary Care Provider + [phone] Maureen Pantoja RN Unavailable Unavail able Source [...] release of HIV test results or diagnoses. [id number] Health Encounter Details Date Type Department Care Team (Late st Contact Info) Description 11/04/2024 Social Work [facility] Liver Transplant at [address] [place] [phone] Kaylin Willard MSW Social History Tobacco Use [...] Recorded In the past 12 months has [employer], gas, oil, or water [employer] threatened to shut off services in your [...] Patient reports he completed CD treatment with [facility] and was referred to [facility] for aftercare and will be attending 1 week virtual individual counseling sessions.He reports he was due to start this while hospitalized for the transplant and plans to reschedule his next session. Hope Stone given. SW discussed process for writing to Donor family and confirmed Pt/family have [facility] brochure. No further SW needs identified. 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
--- OUTSIDE RECORDS SUMMARY | 2024-12-23 10:02 | XMS_ITS | Encounter Summary ---
Author Organization [facility] Address [address] [place] [address] Care Team Providers Care Electronic News Gathering Camera Person Name Role Phone Enedina Mcguire APRN Primary Care Provider + Reason for Visit * Reason Onset Date Comments CALLBACK 10/27/2024 Encounter Details Date Type Department Care Team ([facility] st Contact Info) Description 10/27/2024 Telephone [facility] INTERNAL MEDICINE [address] [place] [address] Enedina Mcguire APRN [address] [place] [address] CALLBACK Social History Tobacco Use Types Packs/Day Years Used Date Smoking Tobacco: Former Cigarettes 4 20 Passive Smoke Exposure: Past Smokeless Tobacco: Current Comments:MARIJUANA USE ABOUT 2X PER WEEK - reports no use 08-05-2024 Alcohol Use Standard Drinks/Week Comments Not Currently 0 (1 standard drink = 0.6 oz pure alcohol) 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 SHE WOULD LIKE TO DISCUSS HER 'S TRANSPLANT LIST STATUS. THEY HAVE SOME GOOD NEWS TO REPORT. documented in this encounter Plan of Treatment Upcoming Encounters Date Type Department Care Team (Late st Contact Info) Description 01/01/2025 2:15 PM EDT Office Visit [facility] PAIN [facility]EMENT [address] [facility] [address] [place] [address] Vazquez Christie PA-C [address] [place] [phone] documented as of this encounter Visit Diagnoses Not on filedocumented in this encounter Additional Health Concerns Assessment Noted Time PHQ-2 Depression Total Score: 1 12/31/19 24 3:25 PM EDT documented as of this encounter Care Teams Electronic News Gathering Camera Person Relationship Specialty Start Date End Date Enedina Mcguire APRN [address] [place] [address] PCP - General Nurse Practitioner 10/27/24 documented as of this encounter
--- OUTSIDE RECORDS SUMMARY | 2024-12-23 10:02 | XMS_ITS | Clinical Summary ---
Author Organization [facility] Address [address] [place] [address] Care Team Providers Care Dance Hall Hostess Name Role Phone Enedina Mcguire APRN Primary [...] Type Department Care Team Description 12/12/2024 Refill [facility] INTERNAL MEDICINE [address] [place] [address] Enedina Mcguire APRN Acquired hypothyroidism; Secondary esophageal varices without bleeding 12/05/2024 Telephone [facility] PAIN MANAGEMENT [address] [place] [address] Vazquez Christie PA-C 12/04/2024 2:55 PM EDT Lab [facility] [place] [address] [facility] [place] [address] [place] [address] Therapeutic drug monitoring 12/04/2024 2:15 PM EDT Office Visit [facility] PAIN MANAGEMENT [address] [facility] [address] [place] [address] Vazquez Christie PA-C Cervical radiculopathy (Primary Dx); Long-term use of high-risk medication; Cervical pain (neck); Cervical spondylosis without myelopathy; Therapeutic drug monitoring; Chronic pain syndrome 12/04/2024 Travel 10/27/2024 Telephone [facility] INTERNAL MEDICINE [address] [place] [phone] Enedina Mcguire, ENTERPRISE SALES PERSON CALLBACK 10/22/2024 2:15 PM EDT Office Visit [facility] PAIN MANAGEMENT [address] [address] Vazquez Christie PA-C Cervical radiculopathy (Primary Dx); Cervical spondylosis without myelopathy; Cervical pain (neck); Long-term use of high-risk medication; Therapeutic drug monitoring 10/22/2024 Travel 10/21/2024 Telephone [facility] INTERNAL MEDICINE [address] [place] [address] Enedina Mcguire, ENTERPRISE SALES PERSON New Med Request 10/20/2024 Telephone [facility] PAIN MANAGEMENT [address] [address] BURGESS - RX REFILL 10/20/2024 Telephone [facility] INTERNAL MEDICINE [address] [place] [phone] Enedina Mcguire, ENTERPRISE SALES PERSON Med Management 10/20/2024 Refill [facility] INTERNAL MEDICINE [address] [place] [address] Enedina Mcguire, ENTERPRISE SALES PERSON Hepatic encephalopathy; Acquired hypothyroidism; Secondary esophageal varices without bleeding 10/17/2024 Telephone [facility] INTERNAL MEDICINE [address] [place] [address] Enedina Mcguire, ENTERPRISE SALES PERSON 10/07/2024 Results Follow-Up [facility] INTERNAL MEDICINE [address] [place] [phone] Enedina Mcguire, ENTERPRISE SALES PERSON 10/07/2024 Results Follow-Up [facility] INTERNAL MEDICINE [address] [place] [phone] Enedina Mcguire, ENTERPRISE SALES PERSON from Last 3 Months Immunizations Immunization Administration [...] alcohol) 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 [facility] Utilities Answer Date Recorded In the past 12 months has [employer], oil, or water [employer] threatened to shut off services in your [...] GED or equivalent No 07/09/2024 Preferred Language Uruguayan 07/09/2024 PHQ-2 Answer Date Recorded Patient Health [...] Description 01/01/2025 2:15 PM EDT Office Visit [facility] PAIN MANAGEMENT [address] [facility] [address] [place] [address] Vazquez Christie PA-C [address] [facility] [address] [place] [id number] Health Maintenance Due Date Last Done Comments Hepatitis B (2 of 3 - 19+ 3- dose series) 10/11/2010 09/13/2010 ANNUAL PHYSICAL 10/14/2024 10/15/2023, 10/02/2022 INFLUENZA VACCINE 02/11/2025 03/12/2024, 03/12/2023 LIPID PANEL 10/07/2025 10/07/2024, 07/2024, 07/14/2024, Additional history exists TDAP/TD VACCINES (3 - Td or Tdap) 06/03/2028 019, 09/13/2010 COVID-19 Vaccine Discontinued 03/17/2021, , 06/27/2020 HEPATITIS C SCREENING Completed 11/25/2024 , 11/25/2024, 10/25/2024, Additional history exists Pneumococcal Vaccine 0-49 Discontinued Medical Devices Implanted Type Area Ophthalmology Technician Device Identifier Shelf Expiration Date Model / Serial / Lot Coil Concerto Pgla Hel Detach Sys 10mm 30cm - [id number] Implanted:Qty: 1 on 07/03/2022 by Timmy Brunner MD at [facility] Implant Left: Vein EV3 A [employer]OV[employer]unity [id number] / / [id number] Description:Coil is in the s hort gastric vein Coil Concerto Nyl [place] Detach Sys 10mm 30cm - [id number] Implanted:Qty: 1 on 07/03/2022 by Timmy Brunner MD at [facility] Implant Left: Vein EV3 A Nubefy [id number] X / / [id number] Description:Short gastric ve in Coil Concerto Nyl [place] Detach Sys 10mm 30cm - [id number] Implanted:Qty: 1 on 07/03/2022 by Timmy Brunner MD at [facility] Implant Left: Vein EV3 A COVID[employer]EN CO [id number] / / [id number] Description:Short gasrtic ve in Coil Concerto Nyl [place] Detach Sys 10mm 30cm - [id number] Implanted:Qty: 1 on 07/03/2022 by Timmy Brunner MD at [facility] Implant Left: Vein EV3 A [employer] CO [id number] / / [id number] Description:Short gastric ve in Coil Concerto Nyl [place] Detach Sys 8mm 30cm - [id number] Implanted:Qty: 1 on 07/03/2022 by Timmy Brunner MD at [facility] Implant Left: Vein EV3 A [employer] CO [id number] / / [id number] Description:Short gastric ve in Coil Concerto Nyl [place] Detach Sys 8mm 30cm - [id number] Implanted:Qty: 1 on 07/03/2022 by Timmy Brunner MD at [facility] Implant Left: Vein EV3 A [employer] CO [id number] / / [id number] Description:Short gastric ve in Sys Del Liq Emb Trufill Nbca 1g Vl - [id number] Implanted:Qty: 1 on 07/03/2022 by Timmy Brunner MD at [facility] Implant Left: Vein [facility] [id number] / / [id number] Description:Short gastric ve in Plug Vasc Anton Emb Ampltz .027 1xn6n15ve - [id number] Implanted:Qty: 1 on 07/03/2022 by Timmy Brunner MD at [facility] Implant Left: Vein [employer] [id number] / / [id number] Description:Coronary vein Coil Concerto Nyl [place] Detach Sys 8mm 30cm - [id number] Implanted:Qty: 1 on 07/03/2022 by Timmy Brunner MD at [facility] Implant Left: Vein EV3 A [employer]EN CO [id number] / / [id number] Description:CORONARY VEIN Gelatin Emb Embocube 5.02mm 50mg Red - [id number] Implanted:Qty: 1 on 07/03/2022 by Timmy Brunner MD at [facility] Implant Left: Vein [employer] [id number] / / [id number] Description:SHORT GASTRIC VE IN Coil Emb Dona 3.7/Lp .035in 14cm 12mm - [id number] Implanted:Qty: 1 on 07/03/2022 by Timmy Brunner MD at [facility] Implant Left: Vein COOK [id number] / / [id number] Description:SHORT GASTRIC VE IN Coil Concerto Pgla [place] Detach Sys 12mm 30cm - [id number] Implanted:Qty: 1 on 07/03/2022 by Timmy Brunner MD at [facility] Implant Left: Vein EV3 A COVIDIiLike CO [id number] / / [id number] Description:Short gastric ve in Coil Concerto Nyl [place] Detach Sys 8mm 30cm - [id number] Implanted:Qty: 1 on 07/03/2022 by Timmy Brunner MD at [facility] Implant Left: Vein EV3 A COVID[employer]EN CO [id number] / / [id number] Description:SHORT GASTRIC VE IN Coil Concerto Nyl [place] Detach Sys 8mm 30cm - [id number] Implanted:Qty: 1 on 07/03/2022 by Timmy Brunner MD at [facility] Implant Left: Vein EV3 A [employer] [id number] / / [id number] Description:Short gastric ve in Coil Concerto Nyl [place] Detach Sys 8mm 30cm - [id number] Implanted:Qty: 1 on 07/03/2022 by Timmy Brunner MD at [facility] Implant Left: Vein EV3 A [employer]EN [employer] [id number] / / [id number] Description:Short gastric ve in Coil Concerto Pgla Hel Detach Sys 14mm 40cm - [id number] Implanted:Qty: 1 on 07/03/2022 by Timmy Brunner MD at [facility] Implant Left: Vein EV3 A [employer] [id number] / / [id number] Description:Short gastric ve in Coil Concerto Pgla Hel Detach Sys 14mm 40cm - [id number] Implanted:Qty: 1 on 07/03/2022 by Timmy Brunner MD at [facility] Implant Left: Vein EV3 A [employer]EN CO [id number] / / [id number] Description:Short gastric ve in Coil Concerto Pgla [place] Detach Sys 14mm 30cm - [id number] Implanted:Qty: 1 on 07/03/2022 by Timmy Brunner MD at [facility] Implant Left: Vein EV3 A COVID[employer]EN CO [id number] / / [id number] Description:Short gastric ve in Coil Concerto Pgla [place] Detach Sys 14mm 30cm - [id number] Implanted:Qty: 1 on 07/03/2022 by Timmy Brunner MD at [facility] Implant Left: Vein EV3 A COVID[employer]EN CO [id number] / / [id number] Description:Short gastric ve in Coil Concerto Pgla [place] Detach Sys 14mm 30cm - [id number] Implanted:Qty: 1 on 07/03/2022 by Timmy Brunner MD at [facility] Implant Left: Vein EV3 A COVIDIEN CO [id number] / / [id number] Description:Short gastric ve in Procedures Procedure Name [...] of27 resultswithin the time period is included. Enedina Mcguire APRN LAB BLOOD ORDERABLES Fin al Result * (ABNORMAL) Urine Drug Screen - Urine, Clean Catch (12/04/2024 2:50 PM EDT) THC, Screen, Urine Positive(A) Negative 12/04 8:32 PM EDT [facility] Phencyclidine (PCP), Urine Negative Negative 12/04/2024 8:32 PM EDT [facility] Cocaine Screen, Urine Negative Negative 12/04/2024 8:32 PM EDT [facility] Methamphetamine, Ur Negative Negative 12/04/2024 8:32 PM EDT [facility] Opiate Screen Positive(A) Negative 12/04/2024 8:32 PM EDT [facility] Amphetamine Screen, Urine Negative Negative 12/04/2024 8:32 PM EDT [facility] Benzodiazepine Screen, Urine Negative Negative 12/04/2024 8:32 PM EDT [facility] Tricyclic Antidepressants Screen Negative Negative 12/04/2024 8:32 PM EDT [facility] Methadone Screen, Urine Negative Negative 12/04/2024 8:32 PM EDT [facility] Barbiturates Screen, Urine Negative Negative 12/04/2024 8:32 PM EDT [facility] Oxycodone Screen, Urine Negative Negative 12/04/2024 8:32 PM EDT [facility] Buprenorphine, Screen, Urine Negative Negative 12/04/2024 8:32 PM EDT [facility] Urine Urine specimen obtained by clean catch procedure / Unknown Collection / Unknown 12/04/2024 2:50 PM EDT 12/04/2024 2:54 PM EDT Narrative [facility] - 12/04/2024 8:32 PM EDT Cutoff [...] unconfirmed results are used. us Vazquez Otilio Christie PA-C URINE ORDERABLES Final R esult [facility]
[address] [place] [address], * Fentanyl, Urine - Urine, Clean Catch (12/04/2024 2:50 PM EDT) Fentanyl, Urine Negative Negative 12/04/2024 9:15 PM EDT [facility] Urine Urine specimen obtained by clean catch procedure / Unknown Collection / Unknown 12/04/2024 2:50 PM EDT 12/04/2024 2:54 PM EDT Narrative [facility] - 12/04/2024 9:15 PM EDT Negative [...] particularly when unconfirmed results are used. Vazquez Christie PA-C URINE ORDERABLES Final R esult [facility]
[address] [place] [address], * IMAGING SCANNED (10/17/2024) Only the most [...] Of Support Discussed With: Patient Care Teams Dance Hall Hostess Relationship Specialty Start Date End Date Enedina Mcguire APRN [address] [place] [address] PCP - General Nurse Practitioner 10/27/24
--- OUTSIDE RECORDS SUMMARY | 2024-12-23 10:02 | XMS_ITS | Encounter Summary ---
Author Organization [facility] Address [address] [place] [address] Care Team Providers Care Sheet Rocker Name Role Phone Enedina Mcguire NP Primary Care Provider + [phone] Maureen Pantoja RN Unavailable Unavail able Source [...] release of HIV test results or diagnoses. [id number] Health Encounter Details Date Type Department Care Team (Late st Contact Info) Description 12/09/2024 Social Work [facility] Liver Transplant at [address] [place] [phone] Kaylin Willard MSW Social History Tobacco Use [...] Recorded In the past 12 months has [employer], gas, oil, or water [employer] threatened to shut off services in your [...] AM 11/25/2024 3:00 PM 12/10/2024 9:00 AM [id number] Score MAGALYS-7 Total Score 17 13 4 [...] post-transplant. He notes he meets with an SENIOR ACCOUNTING SPECIALIST weekly and a counselor weekly through [facility]. He was agreeable to seeing transplant CD counselortoday as well. Of note, pharmacy notified transplant staff that patient also prescribed Tramadol by his pain clinic and is unable to release Naltrexone script at this time. SW to continue to follow. 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
--- OUTSIDE RECORDS SUMMARY | 2024-12-23 10:02 | XMS_ITS | Encounter Summary ---
Author Organization Healthcare Address [address] [place] [address] Care Team Providers Care Lockstitch Cup Setter Name Role Phone Jony Conde MD Primary Care Provider [phone] Lj Tapia PECAN HULLER Unavailable [phone] Enedina Mcguire PECAN HULLER Primary Care Provider + Nuria Fall MANAGER PHILOSOPHY Unavailable Unavaila ble Encounter Details Date Type Department Care Team (Late st Contact Info) Description 07/04/2022 Orders Only External Location [address] [place] [address] Presley Montes De Oca MD [address] [facility] [address] [place], [place] [id number] Social History Tobacco Use Types Packs/Day Years [...] PM EDT [facility] [address], [address] [place] [address] Vincent Braga MD [address] [facility] [address] [place] [phone] documented as of this encounter Procedures Procedure [...] on filedocumented in this encounter Care Teams Lockstitch Cup Setter Relationship Specialty Start Date End Date Jony Conde MD [address] [place] [address] [address] [place] [address] PCP - General 07/18/22 12/03/22 Enedina Mcguire APRN [address] [place] [address] PCP - General 12/04/22 Lj Tapia APRN [address] [place] [address] Referring Physician Gastroenterology 07/18/22 Nuria Fall LPN [facility] TCM Nurse 07/24/24 08/23/24 documented as of this encounter
--- OUTSIDE RECORDS SUMMARY | 2024-12-23 10:02 | XMS_ITS | Encounter Summary ---
Author Organization [facility] Address [address] [place] [address] Care Team Providers Care Stations Superintendent Name Role Phone Enedina Mcguire APRN Primary Care Provider + Encounter Details Date Type Department Care Team ([facility] st Contact Info) Description 10/07/2024 Results Follow-Up [facility] INTERNAL MEDICINE [address] [place] [address] Enedina Mcguire APRN [address] [place], [place] [id number] Social History Tobacco Use Types Packs/Day Years Used Date Smoking Tobacco: Former Cigarettes 4 20 Passive Smoke Exposure: Past Smokeless Tobacco: Current Comments:MARIJUANA USE ABOUT 2X PER WEEK - reports no use 08-05-2024 Alcohol Use Standard Drinks/Week Comments Not Currently 0 (1 standard drink = 0.6 oz pure alcohol) 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 [facility] Utilities Answer Date Recorded In the past 12 months has [employer], oil, or water [employer] threatened to shut off services in [...] Brief Depression Severity Measure Score 0 10/02/2022 [facility] - Occupational [...] GED or equivalent No 07/09/2024 Preferred Language Citizen Of [place] 07/09/2024 PHQ-2 Answer Date Recorded Patient Health [...] [facility] PAIN MANAGEMENT [address] [address] Vazquez Christie PA-C [address] [place] [address] documented as of this encounter Visit Diagnoses Not on filedocumented in this encounter Additional Health Concerns Assessment Noted Time PHQ-2 Depression Total Score: 1 12/31/19 24 3:25 PM EDT documented as of this encounter Care Teams Stations Superintendent Relationship Specialty Start Date End Date Enedina Mcguire APRN [address] [place] [address] PCP - General Nurse Practitioner 10/27/24 documented as of this encounter
--- OUTSIDE RECORDS SUMMARY | 2024-12-23 10:02 | XMS_ITS | Encounter Summary ---
Author Organization [facility] Address [address] [place] [address] Care Team Providers Care Furrier Designer Name Role Phone Enedina Mcguire NP Primary Care Provider + [phone] Maureen Pantoja RN Unavailable Unavail able Source [...] release of HIV test results or diagnoses. [id number] Reason for Visit * Reason Comments Results Encounter Details Date Type Department Care Team (Late st Contact Info) Description 11/04/2024 Telephone [facility] Liver Transplant at [address] [address] Maureen Pantoja, RN Results Social [...] In the past 12 months has [employer], gas, oil, or water [employer] threatened to shut off services in your [...] documented as of this encounter Care Teams Furrier Designer Relationship Specialty Start Date End Date Enedina Mcguire NP [address] [place] [address] PCP - General Internal Medicine 10/05/24 Maureen Pantoja, ЮЛИЯ Txp Post Coordinator Transplant Hepatology 10/28/24 documented as of this encounter
--- OUTSIDE RECORDS SUMMARY | 2024-12-23 10:02 | XMS_ITS | Encounter Summary ---
Author Organization Healthcare Address [address] [place] [address] Care Team Providers Care Development Eng Name Role Phone Wentworth, Lj Nova APRN Unavailable [phone] Enedina Mcguire APRN Primary Care Provider + Encounter Details Date Type Department Care Team ([facility] st Contact Info) Description 11/27/2024 Telephone [facility] Nephrology[facility] Mineral Metabolism [address] [facility], [address] [place] [address] Chelsy Villanueva Social History Tobacco [...] Questionnaire-2 Score 2 09/29/2024 [facility] - Occupational Stress Questionnaire Answer Date [...] place to sleep or slept in a jail (including now)? No 11/19/2023 PHQ-9 Answer Date [...] living in a jail (including now)? 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-RELAY SHOP SUPERVISOR) to steady your nerves or to [...] now s/p transplant can follow with transplant wood tile installation helper, please cancel appt. documented in this encounter Plan of Treatment Upcoming Encounters Date Type Department Care Team (Late st Contact Info) Description 01/08/2025 3:20 PM EDT Office Visit [facility] [place] [address] [facility] [address], [address] [place] [phone] Vincent Braga MD [address] [place] [address] documented as of this encounter Visit Diagnoses [...] as of this encounter Care Teams Development Eng Relationship Specialty Start Date End Date Enedina Mcguire APRN [address] [place] [address] PCP - General 12/04/22 Lj Tapia APRN [address] [place] [address] Referring Physician Gastroenterology 07/18/22 documented as of this encounter
--- OUTSIDE RECORDS SUMMARY | 2024-12-23 10:02 | XMS_ITS | Encounter Summary ---
Author Organization Healthcare Address [address] [place] [address] Care Team Providers Care Women Nurse Name Role Phone Jony Conde MD Primary Care Provider [phone] Lj Tapia SENIOR UNDERWRITING ASSISTANT Unavailable [phone] Enedina Mcguire SENIOR UNDERWRITING ASSISTANT Primary Care Provider + Nuria Fall BODY TRIMMER UPHOLSTERER Unavailable Unavaila ble Encounter Details Date Type Department Care Team (Late st Contact Info) Description 07/03/2022 Orders Only External Location [address] [place] [address] Presley Montes De Oca MD [address] [facility] [address] [place], [place] [id number] Social History Tobacco Use Types Packs/Day Years [...] PM EDT [facility] [address], [address] [place] [address] Vincent Braga MD [address] [facility] [address] [place] [phone] documented as of this encounter Procedures Procedure [...] on filedocumented in this encounter Care Teams Women Nurse Relationship Specialty Start Date End Date Jony Conde MD [address] [place] [address] [address] [place] [address] PCP - General 07/18/22 12/03/22 Enedina Mcguire APRN [address] [place] [address] PCP - General 12/04/22 Lj Tapia APRN [address] [place] [address] Referring Physician Gastroenterology 07/18/22 Nuria Fall LPN [facility] TCM Nurse 07/24/24 08/23/24 documented as of this encounter
--- OUTSIDE RECORDS SUMMARY | 2024-12-23 10:02 | XMS_ITS | Encounter Summary ---
Author Organization [facility] Address [address] [place] [address] Care Team Providers Care Tours Captain Name Role Phone Enedina Mcguire NP Primary Care Provider + [phone] Maureen Pantoja RN Unavailable Unavail able Source [...] release of HIV test results or diagnoses. [id number] Health Encounter Details Date Type Department Care Team (Late st Contact Info) Description 11/04/2024 Nutrition [facility] Kidney Transplant at [address] [place] [phone] Bne Weiss, DMITRY Social History Tobacco Use Types Packs/Day Years Used Date Smoking Tobacco: Former Cigarettes Smokeless Tobacco: Current Alcohol Use Standard Drinks/Week Comments Yes 0 (1 standard drink = 0.6 oz pure alcohol) History of alcohol abuse, reports no use in 3 week- typically endorses use as 4 glasses of wine a days Utilities Answer Date Recorded In the past 12 months has [employer], gas, oil, or water [employer] threatened to shut off services in your [...] times a day. naloxone (NARCAN) 4 mg/actuation [place] Apply 1 spray in one nostril [...] documented as of this encounter Care Teams Tours Captain Relationship Specialty Start Date End Date Enedina Mcguire NP [address] [place] [address] PCP - General Internal Medicine 10/05/24 Maureen Pantoja, RN Txp Post Coordinator Transplant Hepatology 10/28/24 documented as of this encounter
--- OUTSIDE RECORDS SUMMARY | 2024-12-23 10:02 | XMS_ITS | Encounter Summary ---
Author Organization Healthcare Address [address] [place] [address] Care Team Providers Care Shale Planer Operator Helper Name Role Phone Jony Conde MD Primary Care Provider [phone] Lj Tapia SUPERVISORY CBP OFFICER Unavailable [phone] Enedina Mcguire SUPERVISORY CBP OFFICER Primary Care Provider + Nuria Fall OIL WELL LOGGING ENGINEER Unavailable Unavaila ble Encounter Details Date Type Department Care Team (Late st Contact Info) Description 07/04/2022 Orders Only External Location [address] [place] [address] Presley Montes De Oca MD [address] [facility] [address] [place], [place] [id number] Social History Tobacco Use Types Packs/Day Years [...] PM EDT [facility] [address], [address] [place] [address] Vincent Braga MD [address] [facility] [address] [place] [id number] documented as of this encounter Procedures Procedure [...] on filedocumented in this encounter Care Teams Shale Planer Operator Helper Relationship Specialty Start Date End Date Jony Conde MD [address] [facility] [address] [place] [address] PCP - General 07/18/22 12/03/22 Enedina Mcguire APRN [address] [place] [id number] PCP - General 12/04/22 Lj Tapia APRN [address] [place] [address] Referring Physician Gastroenterology 07/18/22 Nuria Fall LPN [facility] TCM Nurse 07/24/24 08/23/24 documented as of this encounter
--- OUTSIDE RECORDS SUMMARY | 2024-12-23 10:02 | XMS_ITS | Encounter Summary ---
[facility] Organization [facility] Address [address] [place] [address] Care Team Providers Care Dairy Processing Supervisor Name Role Phone Enedina Mcguire APRN Primary Care Provider + Reason for Visit * Reason Comments Med Refill Encounter Details Date Type Department Care Team (Late st Contact Info) Description 09/12/2022 Refill [facility] GASTR[facility]OLOGY [address] [facility] [address] [place] [address] Lj Tapia APRN [address] [place] [address] Social History Tobacco Use Types Packs/Day Years [...] or training? Not on file Preferred Language Wolof 07/03/2022 Sex and Gender Information Value Date [...] [facility] [address] [address] Vazquez Christie PA-C [address] [place] [address] documented as of this encounter Visit Diagnoses Not on filedocumented in this encounter Care Teams Dairy Processing Supervisor Relationship Specialty Start Date End Date Enedina Mcguire APRN [address] [place] [id number] PCP - General Nurse Practitioner 10/27/24 documented as of this encounter
--- OUTSIDE RECORDS SUMMARY | 2024-12-23 10:03 | XMS_ITS | Encounter Summary ---
Author Organization [facility] Address [facility] [place] [address] Care Team Providers Care Knock Up Assembler Name Role Phone Enedina Mcguire NP Primary Care Provider + [phone] Maureen Pantoja RN Unavailable Unavail able Source [...] release of HIV test results or diagnoses. [id number] Health Encounter Details Date Type Department Care Team (Late st Contact Info) Description 10/31/2024 Orders Only [facility] Liver Transplant at [facility] [address] [facility] [address] [place] [address] Harvey Domínguez III, MD [address] [place] [address] [address] [place] [address] Liver replaced by transplant ([facility]) (Primary Dx); Immunosuppressive management encounter following liver transplant ([facility]) Social History Tobacco Use Types Packs/Day [...] past 12 months has th e electric, [employer], [employer], or water [employer] threatened to shut off services in your [...] level Lab Routine Liver replaced by transplant ([facility]) Immunosuppressive management encounter following liver transplant ([facility]) 70 Occurrences starting 11/03/2024 until 10/31/2025, 3 completed Hepatic Function Panel Lab Routine Liver replaced by transplant ([facility]) Immunosuppressive management encounter following liver transplant ([facility]) 70 Occurrences starting 11/03/2024 until 10/31/2025, 3 completed Renal Function Panel w/EGFR Lab Routine Liver replaced by transplant ([facility]) Immunosuppressive management encounter following liver transplant ([facility]) 70 Occurrences starting 11/03/2024 until 10/31/2025, 2 completed CBC Lab Routine Liver replaced by transplant ([facility]) Immunosuppressive management encounter following liver transplant ([facility]) 70 Occurrences starting 11/03/2024 until 10/31/2025, 2 completed Differential Lab Routine Liver replaced by transplant ([facility]) Immunosuppressive management encounter following liver transplant ([facility]) 70 Occurrences starting 11/03/2024 until 10/31/2025, [...] - 8,640 /uL 11/25/2024 10:25 AM EDT [facility] Lymphocytes Absolute 1,555 570 - 4,860 /uL 11/25/2024 10:25 AM EDT [facility] Monocytes Absolute 510 0 - 1,296 /uL 11/25/2024 10:25 AM EDT [facility] Eosinophils Absolute 32 0 - 864 /uL 11/25/2024 10:25 AM EDT [facility] Basophils Absolute 73 0 - 108 /uL 11/25/2024 10:25 AM EDT [facility] Whole Blood 11/25/2024 8:42 AM EDT 11/25/2024 9:44 AM EDT Narrative [facility] - 11/25/2024 10:25 AM EDT Standing orders to be drawn: Every Sunday and before 9am and prior to patient taking morning medications. Liver Transplant Fax results to [phone] Call Critical results to [phone] us Harvye Domínguez III, MD LAB BLOOD ORDERABLE S Final Result [facility] [address] [place] [address], [facility] * (ABNORMAL) Hepatic Function Panel (11/25/2024 8:42 AM EDT) Total Bilirubin 0.7 0.0 - 1.5 mg/dL 11/25/2024 10:20 AM EDT [facility] Bilirubin, Direct 0.20 0.00 - 0.40 mg/dL 11/25/2024 10:20 AM EDT [facility] AST 9(L) 13 - 39 U/L 11/25/2024 10:20 AM EDT [facility] ALT 22 7 - 52 U/L 11/25/2024 10:20 AM EDT [facility] Alkaline Phosphatase 198(H) 36 - 125 U/L 11/25/2024 10:20 AM EDT [facility] Total Protein 7.0 6.4 - 8.9 g/dL 11/25/2024 10:20 AM EDT [facility] Albumin 4.5 3.5 - 5.7 g/dL 11/25/2024 10:20 AM EDT [facility] Bilirubin, Indirect 0.50 0.00 - 1.10 mg/dL 11/25/2024 10:20 AM EDT [facility] Plasma 11/25/2024 8:42 AM EDT 11/25/2024 9:47 AM EDT [facility] - 11/25/2024 10:20 AM EDT Standing orders to be drawn: Every Sunday and before 9am and prior to patient taking morning medications. Liver Transplant Fax results to [phone] Call Critical results to [phone] DO NOT REPLACE RENAL PANEL or HEPATIC FUNCTION PANEL w/ CMP, BMP or HEPATIC PROFILE Harvey Domínguez III, MD LAB BLOOD ORDERABLE S Final Result [facility] [address] * Tacrolimus level (11/25/2024 8:42 AM EDT) Tacrolimus (LC-MS) 11.6 3.0 - 15.0 ng/mL 11/25/2024 1:14 PM EDT [facility] Comment:Performed via liquid chromatography tandem [...] 8:42 AM EDT 11/25/2024 9:44 AM EDT [facility] - 11/25/2024 1:14 PM EDT Standing orders to be drawn: Every Sunday and before 9am and prior to patient taking morning medications. Liver Transplant Fax results to [phone] Call Critical results to [phone] us Harvey Domínguez III, MD LAB BLOOD ORDERABLE S Final Result [facility] [address] [facility] [place] [address], [facility] * (ABNORMAL) Differential (11/11/2024 9:13 AM EDT) Neutrophils Relative 69.3 40.0 - 80.0 % 11/11/2024 10:31 AM EDT [facility] Lymphocytes Relative 17.6 15.0 - 45.0 % 11/11/2024 10:31 AM EDT [facility] Monocytes Relative 8.5 0.0 - 12.0 % 11/11/2024 10:31 AM EDT [facility] Eosinophils Relative 2.0 0.0 - 8.0 % 11/11/2024 10:31 AM EDT [facility] Basophils Relative 2.6(H) 0.0 - 1.0 % 11/11/2024 10:31 AM EDT [facility] nRBC 0 0 - 0 /100 WBC 11/11/2024 10:31 AM EDT [facility] Neutrophils Absolute 4,920 1,520 - 8,640 /uL 11/11/2024 10:31 AM EDT [facility] Lymphocytes Absolute 1,250 570 - 4,860 /uL 11/11/2024 10:31 AM EDT [facility] Monocytes Absolute 604 0 - 1,296 /uL 11/11/2024 10:31 AM EDT [facility] Eosinophils Absolute 142 0 - 864 /uL 11/11/2024 10:31 AM EDT [facility] Basophils Absolute 185(H) 0 - 108 /uL 11/11/2024 10:31 AM EDT [facility] Whole Blood 11/11/2024 9:13 AM EDT 11/11/2024 10:19 AM EDT Narrative [facility] - 11/11/2024 10:31 AM EDT Standing orders to be drawn: Every Sunday and before 9am and prior to patient taking morning medications. Liver Transplant Fax results to [phone] Call Critical results to [phone] us Harvey Domínguez III, MD LAB BLOOD ORDERABLE S Final Result [facility] [address] [facility]. [place] [address], [facility] * (ABNORMAL) CBC (11/11/2024 9:13 AM EDT) WBC 7.1 3.8 - 10.8 10E3/uL 11/11/2024 10:31 AM EDT [facility] RBC 3.42(L) 4.20 - 5.80 10E6/uL 11/11/2024 10:31 AM EDT [facility] Hemoglobin 10.6(L) 13.2 - 17.1 g/dL 11/11/2024 10:31 AM EDT [facility] Hematocrit 31.3(L) 38.5 - 50.0 % 11/11/2024 10:31 AM EDT [facility] MCV 91.5 80.0 - 100.0 fL 11/11/2024 10:31 AM EDT [facility] MCH 31.0 27.0 - 33.0 pg 11/11/2024 10:31 AM EDT [facility] MCHC 33.8 32.0 - 36.0 g/dL 11/11/2024 10:31 AM EDT [facility] RDW 20.5(H) 11.0 - 15.0 % 11/11/2024 10:31 AM EDT [facility] Platelets 308 140 - 400 10E3/uL 11/11/2024 10:31 AM EDT [facility] MPV 6.1(L) 7.5 - 11.5 fL 11/11/2024 10:31 AM EDT [facility] Whole Blood 11/11/2024 9:13 AM EDT 11/11/2024 10:19 AM EDT Narrative [facility] - 11/11/2024 10:31 AM EDT Standing orders to be drawn: Every Sunday and before 9am and prior to patient taking morning medications. Liver Transplant Fax results to [phone] Call Critical results to [phone] us Harvey Domínguez III, MD LAB BLOOD ORDERABLE S Final Result [facility] [address] [address], [facility] * (ABNORMAL) Renal Function Panel w/EGFR (11/11/2024 9:13 AM EDT) Sodium 141 133 - 146 mmol/L 11/11/2024 10:51 AM EDT [facility] Potassium 4.6 3.5 - 5.3 mmol/L 11/11/2024 10:51 AM EDT [facility] Chloride 108 98 - 110 mmol/L 11/11/2024 10:51 AM EDT [facility] CO2 24 21 - 33 mmol/L 11/11/2024 10:51 AM EDT [facility] Anion Gap 9 3 - 16 mmol/L 11/11/2024 10:51 AM EDT [facility] BUN 27(H) 7 - 25 mg/dL 11/11/2024 10:51 AM EDT [facility] Creatinine 1.14 0.60 - 1.30 mg/dL 11/11/2024 10:51 AM EDT [facility] Glucose 97 70 - 100 mg/dL 11/11/2024 10:51 AM EDT [facility] Calcium 8.6 8.6 - 10.3 mg/dL 11/11/2024 10:51 AM EDT [facility] Phosphorus 4.4 2.1 - 4.7 mg/dL 11/11/2024 10:51 AM EDT [facility] Albumin 3.8 3.5 - 5.7 g/dL 11/11/2024 10:51 AM EDT [facility] Osmolality, Calculated 297 278 - 305 mOsm/kg 11/11/2024 10:51 AM EDT [facility] EGFR 83 11/11/2024 10:51 AM EDT [facility] Comment:As of 2021, the estimated [...] 9:13 AM EDT 11/11/2024 10:[address] [facility] - 11/11/2024 10:51 AM EDT Standing orders to be drawn: Every Sunday and before 9am and prior to patient taking morning medications. Liver Transplant Fax results to [phone] Call Critical results to [phone] DO NOT REPLACE RENAL PANEL or HEPATIC FUNCTION PANEL w/ CMP, BMP or HEPATIC PROFILE us Harvey Domínguez III, MD LAB BLOOD ORDERABLE S Final Result [facility] [address] [place] [address], [facility] * (ABNORMAL) Hepatic Function Panel (11/11/2024 9:13 AM EDT) Total Bilirubin 1.0 0.0 - 1.5 mg/dL 11/11/2024 10:51 AM EDT [facility] Bilirubin, Direct 0.39 0.00 - 0.40 mg/dL 11/11/2024 10:51 AM EDT [facility] AST 15 13 - 39 U/L 11/11/2024 10:51 AM EDT [facility] ALT 26 7 - 52 U/L 11/11/2024 10:51 AM EDT [facility] Alkaline Phosphatase 125 36 - 125 U/L 11/11/2024 10:51 AM EDT [facility] Total Protein 5.9(L) 6.4 - 8.9 g/dL 11/11/2024 10:51 AM EDT [facility] Albumin 3.8 3.5 - 5.7 g/dL 11/11/2024 10:51 AM EDT [facility] Bilirubin, Indirect 0.61 0.00 - 1.10 mg/dL 11/11/2024 10:51 AM EDT [facility] Plasma 11/11/2024 9:13 AM EDT 11/11/2024 10:19 AM EDT [facility] - 11/11/2024 10:51 AM EDT Standing orders to be drawn: Every Sunday and before 9am and prior to patient taking morning medications. Liver Transplant Fax results to [phone] Call Critical results to [phone] DO NOT REPLACE RENAL PANEL or HEPATIC FUNCTION PANEL w/ CMP, BMP or HEPATIC PROFILE Harvey Domínguez III, MD LAB BLOOD ORDERABLE S Final Result [facility] [address] * Tacrolimus level (11/11/2024 9:13 AM EDT) Tacrolimus (LC-MS) 10.4 3.0 - 15.0 ng/mL 11/11/2024 1:22 PM EDT [facility] Comment:Performed via liquid chromatography tandem [...] 11/11/2024 10:19 AM EDT Narrative [facility] - 11/11/2024 1:22 PM EDT Standing orders to be drawn: Every Sunday and before 9am and prior to patient taking morning medications. Liver Transplant Fax results to [phone] Call Critical results to [phone] us Harvey Domínguez III, MD LAB BLOOD ORDERABLE S Final Result [facility] [address] [place] [address], [facility] * (ABNORMAL) Differential (11/04/2024 8:46 AM EDT) Differential Comments See Note 11/05/2024 12:05 AM EDT [facility] Comment: _Platelets Appear Decreased _Platelet Morphology Normal Myelocytes Relative 3.0(H) 0.0 - 0.0 % 11/05/2024 12:05 AM EDT [facility] Neutrophils Relative 73.0 40.0 - 80.0 % 11/05/2024 12:05 AM EDT [facility] Lymphocytes Relative 17.0 15.0 - 45.0 % 11/05/2024 12:05 AM EDT [facility] Monocytes Relative 6.0 0.0 - 12.0 % 11/05/2024 12:05 AM EDT [facility] Eosinophils Relative 1.0 0.0 - 8.0 % 11/05/2024 12:05 AM EDT [facility] Basophils Relative 0.0 0.0 - 1.0 % 11/05/2024 12:05 AM EDT [facility] Neutrophils Absolute 5,256 1,520 - 8,640 /uL 11/05/2024 12:05 AM EDT [facility] Myelocytes Absolute 216(H) 0 - 0 /uL 11/05/2024 12:05 AM EDT [facility] Lymphocytes Absolute 1,224 570 - 4,860 /uL 11/05/2024 12:05 AM EDT [facility] Monocytes Absolute 432 0 - 1,296 /uL 11/05/2024 12:05 AM EDT [facility] Eosinophils Absolute 72 0 - 864 /uL 11/05/2024 12:05 AM EDT [facility] Basophils Absolute 0 0 - 108 /uL 11/05/2024 12:05 AM EDT [facility] PLT Morphology Platelet morphology appears normal 11/05/2024 12:05 AM EDT [facility] Whole Blood 11/04/2024 8:46 AM EDT 11/04/2024 11:01 PM EDT Narrative [facility] - 11/05/2024 12:05 AM EDT Standing orders to be drawn: Every Sunday and before 9am and prior to patient taking morning medications. Liver Transplant Fax results to [phone] Call Critical results to [phone] Manual WBC differential performed per review criteria approved by the medical claims assistant. us Harvey Domínguez III, MD LAB BLOOD ORDERABLE S Final Result [facility] [address] [facility] [place] [address], [facility] * (ABNORMAL) CBC (11/04/2024 8:46 AM EDT) WBC 7.2 3.8 - 10.8 10E3/uL 11/05/2024 12:05 AM EDT [facility] RBC 3.17(L) 4.20 - 5.80 10E6/uL 11/05/2024 12:05 AM EDT [facility] Hemoglobin 9.7(L) 13.2 - 17.1 g/dL 11/05/2024 12:05 AM EDT [facility] Hematocrit 28.6(L) 38.5 - 50.0 % 11/05/2024 12:05 AM EDT [facility] MCV 90.2 80.0 - 100.0 fL 11/05/2024 12:05 AM EDT [facility] MCH 30.5 27.0 - 33.0 pg 11/05/2024 12:05 AM EDT [facility] MCHC 33.8 32.0 - 36.0 g/dL 11/05/2024 12:05 AM EDT [facility] RDW 17.9(H) 11.0 - 15.0 % 11/05/2024 12:05 AM EDT [facility] Platelets 137(L) 140 - 400 10E3/uL 11/05/2024 12:05 AM EDT [facility] Platelet Estimate Decreased 11/05/2024 12:05 AM EDT [facility] MPV 8.4 7.5 - 11.5 fL 11/05/2024 12:05 AM EDT [facility] Whole Blood 11/04/2024 8:46 AM EDT 11/04/2024 11:01 PM EDT Narrative [facility] - 11/05/2024 12:05 AM EDT Standing orders to be drawn: Every Sunday and before 9am and prior to patient taking morning medications. Liver Transplant Fax results to [phone] Call Critical results to [phone] Peripheral blood smear was scanned per review criteria approved by the laboratory medical claims assistant. us Harvey Domínguez III, MD LAB BLOOD ORDERABLE S Final Result [facility] [address] * (ABNORMAL) Renal Function Panel w/EGFR (11/04/2024 8:46 AM EDT) Sodium 139 133 - 146 mmol/L 11/04/2024 10:06 AM EDT [facility] Potassium 3.8 3.5 - 5.3 mmol/L 11/04/2024 10:06 AM EDT [facility] Chloride 106 98 - 110 mmol/L 11/04/2024 10:06 AM EDT [facility] CO2 25 21 - 33 mmol/L 11/04/2024 10:06 AM EDT [facility] Anion Gap 8 3 - 16 mmol/L 11/04/2024 10:06 AM EDT [facility] BUN 34(H) 7 - 25 mg/dL 11/04/2024 10:06 AM EDT [facility] Creatinine 1.08 0.60 - 1.30 mg/dL 11/04/2024 10:06 AM EDT [facility] Glucose 92 70 - 100 mg/dL 11/04/2024 10:06 AM EDT [facility] Calcium 7.8(L) 8.6 - 10.3 mg/dL 11/04/2024 10:06 AM EDT [facility] Phosphorus 1.9(L) 2.1 - 4.7 mg/dL 11/04/2024 10:06 AM EDT [facility] Albumin 3.5 3.5 - 5.7 g/dL 11/04/2024 10:06 AM EDT [facility] Osmolality, Calculated 295 278 - 305 mOsm/kg 11/04/2024 10:06 AM EDT [facility] EGFR 88 11/04/2024 10:06 AM EDT [facility] Comment:As of 2021, the estimated [...] AM EDT 11/04/2024 9:32 AM EDT Narrative [facility] - 11/04/2024 10:06 AM EDT Standing orders to be drawn: Every Sunday and before 9am and prior to patient taking morning medications. Liver Transplant Fax results to [phone] Call Critical results to [phone] DO NOT REPLACE RENAL PANEL or HEPATIC FUNCTION PANEL w/ CMP, BMP or HEPATIC PROFILE us Harvey Domínguez III, MD LAB BLOOD ORDERABLE S Final Result [facility] [address] [place] [address], [facility] * (ABNORMAL) Hepatic Function Panel (11/04/2024 8:46 AM EDT) Total Bilirubin 1.3 0.0 - 1.5 mg/dL 11/04/2024 10:06 AM EDT [facility] Bilirubin, Direct 0.57(H) 0.00 - 0.40 mg/dL 11/04/2024 10:06 AM EDT [facility] AST 20 13 - 39 U/L 11/04/2024 10:06 AM EDT [facility] ALT 67(H) 7 - 52 U/L 11/04/2024 10:06 AM EDT [facility] Alkaline Phosphatase 133(H) 36 - 125 U/L 11/04/2024 10:06 AM EDT [facility] Total Protein 5.4(L) 6.4 - 8.9 g/dL 11/04/2024 10:06 AM EDT [facility] Albumin 3.5 3.5 - 5.7 g/dL 11/04/2024 10:06 AM EDT [facility] Bilirubin, Indirect 0.73 0.00 - 1.10 mg/dL 11/04/2024 10:06 AM EDT [facility] Plasma 11/04/2024 8:46 AM EDT 11/04/2024 9:32 AM EDT Narrative [facility] - 11/04/2024 10:06 AM EDT Standing orders to be drawn: Every Sunday and before 9am and prior to patient taking morning medications. Liver Transplant Fax results to [phone] Call Critical results to [phone] DO NOT REPLACE RENAL PANEL or HEPATIC FUNCTION PANEL w/ CMP, BMP or HEPATIC PROFILE us Harvey Domínguez III, MD LAB BLOOD ORDERABLE S Final Result [facility] [address] [place] [address], [facility] * Tacrolimus level (11/04/2024 8:46 AM EDT) Tacrolimus (LC-MS) 9.0 3.0 - 15.0 ng/mL 11/04/2024 3:14 PM EDT [facility] Comment:Performed via liquid chromatography tandem [...] morning medications. Liver Transplant Fax results to [phone] Call Critical results to [phone] us Harvey Domínguez III, MD LAB BLOOD ORDERABLE S Final Result [facility] [address] documented in this encounter Visit Diagnoses [...] documented as of this encounter Care Teams Knock Up Assembler Relationship Specialty Start Date End Date Enedina Mcguire NP [address] [place] [address] PCP - General Internal Medicine 10/05/24 Maureen Pantoja, ЮЛИЯ Txp Post Coordinator Transplant Hepatology 10/28/24 documented as of this encounter
--- OUTSIDE RECORDS SUMMARY | 2024-12-23 10:03 | XMS_ITS | Encounter Summary ---
Author Organization [facility] Address [address] [place] [address] Care Team Providers Care Meat Service Team Member Name Role Phone Enedina Mcguire NP Primary Care Provider + [phone] Maureen Pantoja RN Unavailable Unavail able Source [...] release of HIV test results or diagnoses. [id number] Reason for Referral * Diagnostic Lab (Routine) - New Request Specialty Diagnoses / Procedures Referred By Shane hernadez Referred To Contact Diagnoses Kidney transplant recipient Liver transplant recipient (CMS-HCC) Viral disease exposure Immunosuppression ([facility]) Procedures BK Virus Quantitative by PCR, Blood [facility] Liver Transplant at [address] [address] Phone: tel: fax: Referral ID Status Reason Start Date Expiration Date V isits Requested Visits Authorized [id number] New Request 12/09/2024 06/07/2025 1 1 * Diagnostic Lab (Routine) - New Request Specialty Diagnoses / Procedures Referred By Contac t Referred To Contact Diagnoses Kidney transplant recipient Liver transplant recipient (CMS-HCC) Viral disease exposure Immunosuppression (CMS-HCC) Procedures BK Virus Quantitative by PCR, Blood [facility] Liver Transplant at [address] [address] Phone: tel: fax: Referral ID Status Reason Start Date Expiration Date V isits Requested Visits Authorized [id number] New Request 12/09/2024 06/07/2025 1 1 * Diagnostic Lab (Routine) - New Request Specialty Diagnoses / Procedures Referred By Contac t Referred To Contact Diagnoses Kidney transplant recipient Liver transplant recipient (CMS-HCC) Viral disease exposure Immunosuppression (CMS-HCC) Procedures BK Virus Quantitative by PCR, Blood [facility] Liver Transplant at [address] [address] Phone: tel: fax: Referral ID Status Reason Start Date Expiration Date V isits Requested Visits Authorized [id number] New Request 12/09/2024 06/07/2025 1 1 * Diagnostic Lab (Routine) - New Request Specialty Diagnoses / Procedures Referred By Contac t Referred To Contact Diagnoses Kidney transplant recipient Liver transplant recipient (CMS-HCC) Viral disease exposure Immunosuppression (CMS-HCC) Procedures BK Virus Quantitative by PCR, Blood [facility] Liver Transplant at [address] [address] Phone: tel: fax: Referral ID Status Reason Start Date Expiration Date V isits Requested Visits Authorized [id number] New Request 12/09/2024 06/07/2025 1 1 * Diagnostic Lab (Routine) - New Request Specialty Diagnoses / Procedures Referred By Contac t Referred To Contact Diagnoses Kidney transplant recipient Liver transplant recipient (CMS-HCC) Viral disease exposure Immunosuppression (CMS-HCC) Procedures BK Virus Quantitative by PCR, Blood [facility] Liver Transplant at [address] [address] Phone: tel: fax: Referral ID Status Reason Start Date Expiration Date V isits Requested Visits Authorized [id number] New Request 12/09/2024 06/07/2025 1 1 * Diagnostic Lab (Routine) - New Request Specialty Diagnoses / Procedures Referred By Shane hernadez Referred To Contact Diagnoses Kidney transplant recipient Liver transplant recipient (CMS-HCC) Viral disease exposure Immunosuppression ([facility]-HCC) Procedures BK Virus Quantitative by PCR, Blood [facility] Liver Transplant at [address] [address] Phone: tel: fax: Referral ID Status Reason Start Date Expiration Date V isits Requested Visits Authorized [id number] New Request 12/09/2024 06/07/2025 1 1 Encounter Details Date Type Department Care Team (Late st Contact Info) Description 12/09/2024 Orders Only [facility] Liver Transplant at [address] [address] Maureen Pantoja RN Kidney transplant recipient (Primary Dx); Liver transplant recipient (CMS-HCC); Viral disease exposure; Immunosuppression ([facility]-H[facility]) Social History Tobacco Use Types Packs/Day Years Used Date Smoking Tobacco: Former Cigarettes Smokeless Tobacco: Current Alcohol Use Standard Drinks/Week Comments Yes 0 (1 standard drink = 0.6 oz pure alcohol) History of alcohol abuse, reports no use in 3 week- typically endorses use as 4 glasses of wine a days Utilities Answer Date Recorded In the past 12 months has [employer], oil, or water company threatened to shut [...] documented as of this encounter Care Teams Meat Service Team Member Relationship Specialty Start Date End Date Enedina Mcguire NP [address] [place], [place] [id number] PCP - General Internal Medicine 10/05/24 Maureen Pantoja, ЮЛИЯ Txp Post Coordinator Transplant Hepatology 10/28/24 documented as of this encounter
--- OUTSIDE RECORDS SUMMARY | 2024-12-23 10:03 | XMS_ITS | Encounter Summary ---
Author Organization [facility] Address [address] [place] [address] Care Team Providers Care Sales Forecast Analyst Name Role Phone Enedina Mcguire NP Primary Care Provider [phone] Source Comments This information has been disclosed [...] release of HIV test results or diagnoses. [id number] Health Encounter Details Date Type Department Care Team (Late st Contact Info) Description 10/27/[address] [facility] Kidney Transplant at [address] [place] [phone] Karen Rosen, RN I have verified that the donor serologies entered in [facility] match the donor Social History Tobacco [...] Recorded In the past 12 months has [employer], gas, oil, or water [employer] threatened to shut off services in [...] as of this encounter Care Teams Sales Forecast Analyst Relationship Specialty Start Date End Date Enedina Mcguire NP [address] [place] [address] PCP - General Internal Medicine 10/05/24 documented as of this encounter
--- OUTSIDE RECORDS SUMMARY | 2024-12-23 10:03 | XMS_ITS | Encounter Summary ---
Author Organization [facility] Address [address] [place] [address] Care Team Providers Care Disc Inspector Name Role Phone Enedina Mcguire NP Primary Care Provider + [phone] Maureen Pantoja RN Unavailable Unavail able Source [...] release of HIV test results or diagnoses. [id number] Health Encounter Details Date Type Department Care Team (Late st Contact Info) Description 12/09/2024 Chart Note [facility] Liver Transplant at [address] [place] [phone] Marlene Ro MA Social History Tobacco Use [...] Recorded In the past 12 months has [employer], gas, oil, or water [employer] threatened to shut off services in your [...] Progress Notes * Marlene Ro MA - 12/09/2024 10:09 AM EDT Images [...] No growth URINE SPECIMEN / Unknown Result [facility] Provider MICROBIOLOGY - GENERAL OR DERABLES Final Result * (ABNORMAL) Magnesium (12/08/2024 10:43 AM EDT) Pathologist [facility] Magnesium 1.3(A) 1.6 - 2.4 mg/dL Plasma Narrative Resulting Agency Comment [facility] Result [facility] LAB BLOOD ORDERABLES Denisse l Result * (ABNORMAL) Renal Function Panel w/o EGFR (12/08/2024 10:43 AM EDT) Pathologist [facility] Glucose 83 mg/dL BUN 21 4 - [...] 5.0 g/dL Blood Narrative Resulting Agency Comment [facility] Result [facility] LAB BLOOD ORDERABLES Denisse l Result * Creatinine, urine, random (12/08/2024 10:43 AM EDT) [facility] Creatinine, Urine 65 Urine Narrative Resulting Agency Comment [facility] Result [facility] Provider URINE ORDERABLES Final Re sult * Urinalysis w/Rfl to Microscopic (12/08/2024 10:43 AM EDT) Pathologist [facility] Glucose, UA Negative Negative Ketones, UA Negative Negative Blood, UA Negative Negative Bilirubin, UA Negative Negative Urobilinogen, UA Normal Normal Protein, UA Negative Negative Nitrite, UA Negative Negative Leukocyte Esterase, UA Negative Negative pH, UA 6.0 4.5 - 8.0 Specific [place], UA 1.010 1.005 - 1.030 Clarity, UA Clear Clear Color, UA Yellow Light Yellow, Yellow Urine Narrative Resulting Agency Comment [facility] Result [facility] Provider URINE ORDERABLES Final Re sult * Urine Protein, Tot, Random (w/o Creat) (12/08/2024 10:43 AM EDT) Total Protein, Ur 11.0 Urine Narrative Resulting Agency Comment [facility] Result [facility] Provider URINE ORDERABLES Final Re sult * (ABNORMAL) Hepatic Function Panel (12/08/2024 10:43 AM EDT) Pathologist [facility] Bilirubin, Direct 0.1 Bilirubin, Indirect 0.2 Alkaline Phosphatase 80 U/L ALT 14 U/L AST 16 U/L Total Bilirubin 0.3 0.1 - 1.4 mg/dL Total Protein 5.6(A) 6.4 - 8.2 g/dL Plasma Narrative Resulting Agency Comment [facility] Result [facility] Provider LAB BLOOD ORDERABLES Denisse l [...] 5.1 10^3/mL Blood Narrative Resulting Agency Comment [facility] us Historical Provider LAB BLOOD ORDERABLES Denisse l Result documented in this encounter Visit Diagnoses Not on filedocumented in this encounter Additional Health Concerns Infection Onset Date Last Indicated Resolved Time 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
--- OUTSIDE RECORDS SUMMARY | 2024-12-23 10:03 | XMS_ITS | Encounter Summary ---
Author Organization [facility] Address [address] [place] [address] Care Team Providers Care Manufacturing Team Leader Name Role Phone Enedina Mcguire NP Primary Care Provider + [phone] Maureen Pantoja RN Unavailable Unavail able Source [...] release of HIV test results or diagnoses. [id number] Health Encounter Details Date Type Department Care Team (Late st Contact Info) Description 12/09/2024 Telephone Liver Transplant at [address] [place] [phone] Mitzy Gill MA Social History Tobacco [...] In the past 12 months has [employer], gas, oil, or water company threatened to [...] call pharmacy with update. Patient notified via [employer]. * Mitzy Gill MA - 12/10/2024 10:09 [...] I stated we received a call from [facility] stating he picked up a tramadol prescription on 12/05 and there is an issue with him having naltrexone prescribed as well. Per CC ЮЛИЯ Reddy, Pt cannot have naltrexone filled while actively taking tramadol. Spoke to Kirt at [facility] and advised him not to fill [...] - 12/09/2024 12:41 PM EDT Kirt from [facility] states they received a naltrexone prescription [...] documented as of this encounter Care Teams Manufacturing Team Leader Relationship Specialty Start Date End Date nEedina Mcguire NP [address] [place] [address] PCP - General Internal Medicine 10/05/24 Maureen Pantoja, ЮЛИЯ Txp Post Coordinator Transplant Hepatology 10/28/24 documented as of this encounter
--- OUTSIDE RECORDS SUMMARY | 2024-12-23 10:03 | XMS_ITS | Encounter Summary ---
Author Organization [facility] Address [address] [place] [address] Care Team Providers Care Fruit Preserver Name Role Phone Enedina Mcguire NP Primary Care Provider + [phone] Maureen Pantoja RN Unavailable Unavail able Source [...] release of HIV test results or diagnoses. [id number] Health Encounter Details Date Type Department Care Team (Late st Contact Info) Description 10/27/2024 Chart Note [facility] Liver Transplant at [address] [place] [phone] Crista Power, RN I introduced myself as inpatient liver/kidney tour coordinator, Social History Tobacco Use Types Packs/Day Years Used Date Smoking Tobacco: Former Cigarettes Smokeless Tobacco: Current Alcohol Use Standard Drinks/Week Comments Yes 0 (1 standard drink = 0.6 oz pure alcohol) History of alcohol abuse, reports no use in 3 week- typically endorses use as 4 glasses of wine a days Utilities Answer Date Recorded In the past 12 months has [employer], gas, oil, or water [employer] threatened to shut off services in your [...] EDT I introduced myself as inpatient liver/kidney tour coordinator, explained role and provided my contact [...] documented as of this encounter Care Teams Fruit Preserver Relationship Specialty Start Date End Date Enedina Mcguire NP [address] [place] [address] PCP - General Internal Medicine 10/05/24 Maureen Pantoja, ЮЛИЯ Txp Post Coordinator Transplant Hepatology 10/28/24 documented as of this encounter
--- OUTSIDE RECORDS SUMMARY | 2024-12-23 10:03 | XMS_ITS | Encounter Summary ---
Author Organization [facility] Address [address] [place] [address] Care Team Providers Care Chorus Master Name Role Phone Enedina Mcguire NP Primary Care Provider + [phone] Maureen Pantoja RN Unavailable Unavail able Source [...] release of HIV test results or diagnoses. [id number] Health Encounter Details Date Type Department Care Team (Late st Contact Info) Description 12/09/2024 Orders Only [facility] Liver Transplant at [address] [place] [address] Maureen Pantoja, RN Social History Tobacco Use [...] Recorded In the past 12 months has [employer], gas, oil, or water [employer] threatened to shut off services in your [...] documented as of this encounter Care Teams Chorus Master Relationship Specialty Start Date End Date Enedina Mcguire NP [address] [place] [address] PCP - General Internal Medicine 10/05/24 Maureen Pantoja, ЮЛИЯ Txp Post Coordinator Transplant Hepatology 10/28/24 documented as of this encounter
--- OUTSIDE RECORDS SUMMARY | 2024-12-23 10:03 | XMS_ITS | Encounter Summary ---
Author Organization [facility] Address [address] [place] [address] Care Team Providers Care Vamp Maker Name Role Phone Enedina Mcguire NP Primary Care Provider + [phone] Maureen Pantoja RN Unavailable Unavail able Source [...] release of HIV test results or diagnoses. [id number] Reason for Visit * Reason Comments Transplant Review Encounter Details Date Type Department Care Team (Late st Contact Info) Description 10/27/2024 Pharmacy Services [facility] [address] [place] [phone] Opal Cox, TaniD Social History Tobacco [...] Recorded In the past 12 months has [employer], gas, oil, or water [employer] threatened to shut off services in your [...] of Care Patient's prescriptions were sent to [facility] for a Transplant benefits review. Julien Anderson received a Kidney/Liver Transplant on 10/26-10/27/24 at [facility]. The patient's discharge medications were sent to [facility] for anticipated discharge of 11/03/24. The patient has a [employer] [employer] commercial insurance plan to cover prescriptions. Currently, the patient's co-pay for all medications is listed below: Acetaminophen 325 mg - $4 Alcohol swabs - $0 Aspiring 81mg - $4 Atovaquone 750 mg/5 ml - $0 Dexcom G7 Water Softener Service Supervisor- $0 Dexcom G7 Sensor- $0 Eliquis 2.5mg [...] $0 Specialty Pharmacy Requirements: Name of Pharmacy: [facility] Phone Number: Prescriptions Transferred at Discharge Date: The patient could have potential eligibility for the pharmaceutical company medication assistance program for each of these medications. Mr Anderson's total cost of discharge prescriptions is currently $16. This total is subject to changewith the addition or change in any of the prescriptions sent to [facility]. A call was placed to Mr Anderson's room to discuss total cost amount from above and encourage patientto set up profile with [facility]. [facility] confirmed delivery of immunosuppressants to [...] The patient has been referred to the [facility] Transplant Team. The patient should visit Medication [facility] for assistance if problems arise with the prescriptions. If questions arise regarding discharge medications, please call [phone]. Opal Cox Pharm D Transitions of Care [phone] documented in this encounter Plan of Treatment [...] documented as of this encounter Care Teams Vamp Maker Relationship Specialty Start Date End Date Enedina Mcguire NP [address] [place] [address] PCP - General Internal Medicine 10/05/24 Maureen Pantoja, ЮЛИЯ Txp Post Coordinator Transplant Hepatology 10/28/24 documented as of this encounter
--- OUTSIDE RECORDS SUMMARY | 2024-12-23 10:05 | XMS_ITS | Encounter Summary ---
Author Organization [facility] Address [facility] [place] [address] Care Team Providers Care Etl Informatica Architect Name Role Phone Enedina Mcguire NP Primary Care Provider + [phone] Maureen Pantoja RN Unavailable Unavail able Source [...] release of HIV test results or diagnoses. [id number] Health Encounter Details Date Type Department Care [...] Recorded In the past 12 months has [employer], [employer], oil, or water [employer] threatened to shut off services in your [...] documented as of this encounter Care Teams Etl Informatica Architect Relationship Specialty Start Date End Date Enedina Mcguire NP [address] [place] [address] PCP - General Internal Medicine 10/05/24 Maureen Pantoja, ЮЛИЯ Txp Post Coordinator Transplant Hepatology 10/28/24 documented as of this encounter
--- OUTSIDE RECORDS SUMMARY | 2024-12-23 10:05 | XMS_ITS | Encounter Summary ---
Author Organization [facility] Address [address] [place] [address] Care Team Providers Care Paper Sealer Name Role Phone Enedina Mcguire NP Primary Care Provider + [phone] Maureen Pantoja RN Unavailable Unavail able Source [...] release of HIV test results or diagnoses. [id number] Health Encounter Details Date Type Department Care Team (Late st Contact Info) Description 10/29/2024 Education Chart Note [facility] Liver Transplant at [address] [place] [phone] Crista Power, RN Social History Tobacco [...] Recorded In the past 12 months has [employer], gas, oil, or water [employer] threatened to shut off services in your [...] of Infection/Rejection [x] 5. When to call mortgage loan coordinator [x] 6. Outpatient follow up including [...] times 0900/2100. Julien Anderson has to use [facility]. Meds are getting delivered 10/31/24. documented in this encounter Plan of Treatment Not on file documented as of this encounter Visit Diagnoses Not on filedocumented in this encounter Additional Health Concerns Assessment Noted Time PHQ-9 Depression Total Score: 17 025 11:00 AM EDT documented as of this encounter Care Teams Paper Sealer Relationship Specialty Start Date End Date Enedina Mcguire NP [address] [place] [address] PCP - General Internal Medicine 10/05/24 Maureen Pantoja, ЮЛИЯ Txp Post Coordinator Transplant Hepatology 10/28/24 documented as of this encounter
--- OUTSIDE RECORDS SUMMARY | 2024-12-23 10:05 | XMS_ITS | Encounter Summary ---
Author Organization [facility] Address [address] [place] [address] Care Team Providers Care Coal Equipment Operator Name Role Phone Enedina Mcguire NP Primary Care Provider + [phone] Maureen Pantoja RN Unavailable Unavail able Source [...] release of HIV test results or diagnoses. [id number] Health Encounter Details Date Type Department Care Team (Late st Contact Info) Description 11/03/2024 Chart Note [facility] Liver Transplant at [address] [place] [phone] Hillary Fernandes, TaniD Liver Transplant Pharmacy Discharge [...] In the past 12 months has e [employer], gas, oil, or water [employer] threatened to shut off services in your [...] meter (TRUE METRIX GLUCOSE METER) [facility] Use to test blood sugar up to [...] units lancets (ACCU-CHEK SOFTCLIX LANCETS) [facility] Use to test blood sugar up to [...] times a day. 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
--- OUTSIDE RECORDS SUMMARY | 2024-12-23 10:05 | XMS_ITS | Encounter Summary ---
Author Organization [facility] Address [address] [place] [address] Care Team Providers Care Economic Development Manager Name Role Phone Enedina Mcguire NP Primary Care Provider + [phone] Maureen Pantoja RN Unavailable Unavail able Source [...] release of HIV test results or diagnoses. [id number] Health Encounter Details Date Type Department Care Team (Late st Contact Info) Description 11/03/2024 Telephone [facility] Liver Transplant at [address] [place] [phone] Marisela Martinez MA Social History Tobacco [...] Recorded In the past 12 months has [employer], gas, oil, or water [employer] threatened to shut off services in your [...] he will have his labs drawn at [facility] prior to clinic on 11/03. documented [...] documented as of this encounter Care Teams Economic Development Manager Relationship Specialty Start Date End Date Enedina Mcguire NP [address] [place] [address] PCP - General Internal Medicine 10/05/24 Maureen Pantoja, ЮЛИЯ Txp Post Coordinator Transplant Hepatology 10/28/24 documented as of this encounter
--- OUTSIDE RECORDS SUMMARY | 2024-12-23 10:06 | XMS_ITS | Encounter Summary ---
Author Organization [facility] Address [address] [place] [id number] Care Team Providers Care Engineering Technical Writer Name Role Phone Enedina Mcguire NP Primary Care Provider + [phone] Alicia Rankin RN Unavailable Unavail able Source [...] release of HIV test results or diagnoses. [id number] Reason for Visit * Reason Comments Results Medication Dose Change Encounter Details Date Type Department Care Team (Late st Contact Info) Description 12/22/2024 Telephone [facility] Liver Transplant at [address] [id number] Alicia Rankin, ЮЛИЯ Results; Medication Dose Change Social History Tobacco Use Types Packs/Day Years Used Date Smoking Tobacco: Former Cigarettes Smokeless Tobacco: Current Alcohol Use Standard Drinks/Week Comments Yes 0 (1 standard drink = 0.6 oz pure alcohol) History of alcohol abuse, reports no use in 3 week- typically endorses use as 4 glasses of wine a days Utilities Answer Date Recorded In the past 12 months has [employer], gas, oil, or water company threatened to [...] Progress Notes * Marlene Ro MA - 12/23/2024 8:50 AM EDT Called patient. Read him CC ЮЛИЯ Reddy's msg verbatim. Directed him to review/respond back to her msg after our call. Patient verbalized understanding of the change and my request to open MC. No further questions at this time. * Alicia Rankin RN - 12/22/2024 11:54 AM EDTAddended by: ALICIA RANKIN on: 12/22/2024 11:54 AM Modules accepted: Orders * Alicia Rankin RN - 12/22/2024 11:[address] Alonzo: We can change the tacrolimus to 5mg in am and 6mg in PM orally. Dose updated. Patient notified. * Alicia Rankin RN - 12/22/2024 8:37 AM EDT Lab results from 12/16/24 reviewed. Renal panel stable. LFTs stable. Alk phos 73, AST/ALT . FK 11.3 Current IS: FK 6 mg BID MMF 500 mg BID Prednisone 7.5 mg daily (instructed to decrease on 12/19/24) Will route to T[facility] Provider for further review and recommendations. 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
--- OUTSIDE RECORDS SUMMARY | 2024-12-23 10:06 | XMS_ITS | Clinical Summary ---
Author Organization [facility] Address Formerly named [facility] [place] [address] Care Team Providers Care Field Health Officer Name Role Phone Enedina Mcguire NP Primary Care Provider + [phone] Maureen Pantoja RN Unavailable Unavail able Source [...] therelease of HIV test results or diagnoses. [id number] Allergies Active Allergy Reactions Criticality [...] EDT 025 Active naloxone (NARCAN) 4 mg/actuation Acacia Villas Apply 1 spray in one nostril if needed. Call 911. May repeat dose in other nostril if no response in 3 minutes. 2 each 1 10/18/19 25 10:25 AM EDT 025 Active senna-docusate (SENNOSIDES-DOCUSA TE SODIUM) 8.6-50 mg per tablet Take 1 tablet by mouth at bedtime as needed for Constipation. 30 tablet 11/03/19 25 10:20 AM EDT Active polyethylene glycol (GLYCOLAX) 17 gram/dose powder Mix one capful (17 grams) in 8 ounces of liquid and drink by mouth daily as needed (Constipation). 238 g 11/03/19 10:20 AM EDT Active alcohol swabs PadM Use as instructed. 200 each 1 11/03/19 10:20 AM EDT Active magnesium chloride (SLOW MAG) 71.5 mg TbECIndications:hy pomagnesemia Take 2 tablets (143 mg total) by mouth 3 times a day. Indications: hypomagnesemia 180 tablet 2 025 02/02 Active FLUoxetine (PROZAC) 20 MG capsule Take 1 capsule (20 mg total) by mouth daily. 30 capsule 2 Active acetaminophen (TYLENOL) 325 MG tabletIndications: Encounter for therapeutic drug monitoring,S/P liver transplant ([facility]),Hypomagn esemia,Kidney transplant recipient,Hyperten kevin, unspecified type,Gastroesophag eal reflux disease, unspecified whether esophagitis present Take 3 tablets (975 mg total) by mouth every 8 hours. 200 tablet Active ergocalciferol (ERGOCALCIFEROL) 1,250 mcg (50,000 unit) capsuleIndications :Encounter for therapeutic drug monitoring,S/P liver transplant ([facility]),Hypomagn esemia,Kidney transplant recipient,Hyperten kevin, unspecified type,Gastroesophag eal reflux disease, unspecified whether esophagitis present Take 1 capsule (50,000 Units total) by mouth once a week. 4 capsule 2 Active famotidine (PEPCID) 20 MG tabletIndications: Encounter for therapeutic drug monitoring,S/P liver transplant ([facility]),Hypomagn esemia,Kidney transplant recipient,Hyperten kevin, unspecified type,Gastroesophag eal reflux disease, unspecified whether esophagitis present Take 1 tablet (20 mg total) by mouth 2 times a day. 60 tablet 2 07/15/2 025 Active sulfamethoxazole-t rimethoprim (BACTRIM) 400-80 mg per tabletIndications: Encounter for therapeutic drug monitoring,S/P liver transplant ([facility]),Hypomagn esemia,Kidney transplant recipient,Hyperten kevin, unspecified type,Gastroesophag eal reflux disease, unspecified whether esophagitis present Take 1 tablet by mouth daily. 30 tablet 2 025 Active gabapentin (NEURONTIN) 100 MG capsuleIndications :Encounter for therapeutic drug monitoring,S/P liver transplant ([facility]),Hypomagn esemia,Kidney transplant recipient,Hyperten kevin, unspecified type,Gastroesophag eal reflux disease, unspecified whether esophagitis present Take 1 capsule (100 mg total) by mouth 3 times a day. 90 capsule 025 Active naltrexone (DEPADE) 50 mg tablet Take 1 tablet (50 mg total) by mouth daily. 30 tablet 025 Active methocarbamoL (ROBAXIN) 500 MG tablet Take 2 tablets (1,000 mg total) by mouth in the morning and at bedtime. 120 tablet 025 Active mycophenolate (CELLCEPT) 250 mg capsuleIndications :Encounter for therapeutic drug monitoring,S/P liver transplant ([facility]),Hypomagn esemia,Kidney transplant recipient,Hyperten kevin, unspecified type,Gastroesophag eal reflux disease, unspecified whether esophagitis present Take 2 capsules (500 mg total) by mouth 2 times a day. 120 capsule 5 025 Active valGANciclovir (VALCYTE) 450 mg tabletIndications: Encounter for therapeutic drug monitoring,S/P liver transplant ([facility]),Hypomagn esemia,Kidney transplant recipient,Hyperten kevin, unspecified type,Gastroesophag eal reflux disease, unspecified whether esophagitis present Take 2 tablets (900 mg total) by mouth daily. 60 tablet 025 Active NIFEdipine (PROCARDIA-XL) 30 MG (OSM) 24 hr tabletIndications: Encounter for therapeutic drug monitoring,S/P liver transplant ([facility]),Hypomagn esemia,Kidney transplant recipient,Hyperten kevin, unspecified type,Gastroesophag eal reflux disease, unspecified whether esophagitis present Take 1 tablet by mouth once daily 30 tablet 2 025 Active predniSONE (DELTASONE) 5 MG tablet Take 1.5 tablets (7.5 mg total) by mouth daily. 45 tablet 1 025 Active tacrolimus (PROGRAF) 1 MG capsuleIndications :Prevention of Kidney Transplant Rejection,Preventi on of Liver Transplant Rejection Take 5 capsules (5 mg total) by mouth every morning AND 6 capsules (6 mg total) every evening. Use as directed. Indications: Prevention of Kidney Transplant Rejection, Prevention of Liver Transplant Rejection. 330 capsule 5 Active ergocalciferol (ERGOCALCIFEROL) 1,250 mcg (50,000 unit) capsule Take 1 capsule (50,000 Units total) by mouth once a week. 4 capsule 2 11/03/19 10:20 AM EDT 11/25 Discontinued( Refill / Reorder) sulfamethoxazole-t rimethoprim (BACTRIM) 400-80 mg per tablet Take 1 tablet by mouth daily. 30 tablet 2 11/03/19 10:20 AM EDT 025 11/25 Discontinued( Refill / Reorder) valGANciclovir (VALCYTE) 450 mg tablet Take 1 tablet (450 mg total) by mouth daily. 30 tablet 2 11/03/19 10:20 AM EDT 025 11/25 Discontinued( Refill / Reorder) acetaminophen (TYLENOL) [...] each 2 11/03/19 10:20 AM EDT 025 12/09 Discontinued blood-glucose meter (TRUE METRIX GLUCOSE METER) [facility] Use to test blood sugar up to 4 times a day. 1 each 11/03/19 10:20 AM EDT 12/09 Discontinued blood sugar diagnostic (GLUCOSE BLOOD) Strp Use to test blood sugar up to 4 times a day. 100 strip 11/03/19 10:20 AM EDT 12/09 Discontinued lancets [...] capsule 5 11/25 Discontinued( Refill / Reorder) methocarbamoL (ROBAXIN) 500 MG tablet Take 2 tablets (1,000 mg total) by mouth 3 times a day. 180 tablet 11/03/19 10:20 AM EDT 12/18 Discontinued( Refill / Reorder) gabapentin (NEURONTIN) 100 [...] :Encounter for therapeutic drug monitoring,S/P liver transplant (CMS-HCC),Hypomagn esemia,Kidney transplant recipient,Hyperten kevin, unspecified type,Gastroesophag eal reflux disease, unspecified whether esophagitis present Take 1 capsule (100 mg total) by mouth 3 times a day. 90 capsule 11/25 Discontinued( Refill / Reorder) NIFEdipine (PROCARDIA-XL) 30 MG (OSM) 24 hr tabletIndications: Encounter for therapeutic drug monitoring,S/P liver transplant (CMS-HCC),Hypomagn esemia,Kidney transplant recipient,Hyperten kevin, unspecified type,Gastroesophag eal reflux disease, unspecified whether esophagitis present Take 1 tablet (30 mg total) by mouth daily. 30 tablet 025 12/22 Discontinued sodium bicarbonate 650 MG tabletIndications: metabolic acidosis Take 1 tablet (650 mg total) by mouth 2 times a day. Indications: metabolic acidosis 60 tablet 025 12/09 Discontinued( Therapy Completed / No Longer Needed) valGANciclovir (VALCYTE) 450 mg tabletIndications: Encounter for therapeutic drug monitoring,S/P liver transplant ([facility]),Hypomagn esemia,Kidney transplant recipient,Hyperten kevin, unspecified type,Gastroesophag eal reflux disease, unspecified whether esophagitis present Take 1 tablet (450 mg total) by mouth daily. 30 tablet 2 025 12/09 Discontinued( Refill / Reorder) mycophenolate (CELLCEPT) 250 mg capsuleIndications :Encounter for therapeutic drug monitoring,S/P liver transplant ([facility]),Hypomagn esemia,Kidney transplant recipient,Hyperten kevin, unspecified type,Gastroesophag eal reflux disease, unspecified whether esophagitis present Take 2 capsules (500 mg total) by mouth 2 times a day. 120 capsule 5 025 12/18 Discontinued( Refill / Reorder) tacrolimus (PROGRAF) 1 MG capsuleIndications :Encounter for therapeutic drug monitoring,S/P liver transplant ([facility]),Hypomagn esemia,Kidney transplant recipient,Hyperten kevin, unspecified type,Gastroesophag eal [...] to 7 days. 28 tablet 025 12/02 predniSONE (DELTASONE) 5 MG tablet Take 2 tablets (10 mg total) by mouth daily. 025 12/22 Discontinued( Refill / Reorder) tacrolimus (PROGRAF) 1 MG capsuleIndications :Prevention of [...] 5 025 12/09 Discontinued( Refill / Reorder) tacrolimus (PROGRAF) 1 MG capsuleIndications :Prevention of Kidney Transplant Rejection,Preventi on of Liver Transplant Rejection Take 6 capsules (6 mg total) by mouth 2 times a day. Use as directed Indications: Prevention of Kidney Transplant Rejection, Prevention of Liver Transplant Rejection 360 capsule 5 025 12/18 Discontinued( Refill / Reorder) valGANciclovir (VALCYTE) 450 mg tabletIndications: Encounter for therapeutic drug monitoring,S/P liver transplant ([facility]),Hypomagn esemia,Kidney transplant recipient,Hyperten kevin, unspecified type,Gastroesophag eal reflux disease, unspecified whether esophagitis present Take 2 tablets (900 mg total) by mouth daily. 60 tablet 2 025 12/18 Discontinued( Refill / Reorder) tacrolimus (PROGRAF) 1 MG capsuleIndications :Prevention of Kidney Transplant Rejection,Preventi on of Liver Transplant Rejection Take 6 capsules (6 mg total) by mouth 2 times a day. Use as directed Indications: Prevention of Kidney Transplant Rejection, Prevention of Liver Transplant Rejection 360 capsule 5 025 12/22 Discontinued( Refill / Reorder) Hospital, Clinic, or [...] with SBP, s/p CTX x5d; will cont snf ppx with Cipro 500mg daily - HE: [...] Encounters Date Type Department Care Team Description 12/22/2024 Telephone [facility] Liver Transplant at [address] [place] [address] Maureen Pantoja, ЮЛИЯ Results; Medication Dose Change 12/21/2024 Refill [facility] Liver Transplant at [place] [id number] [facility] [place] [address] [place] [address] Lydia Sanchez MD Encounter for therapeutic drug monitoring; S/P liver transplant ([facility]); Hypomagnesemia; Kidney transplant recipient; Hypertension, unspecified type; Gastroesophageal reflux disease, unspecified whether esophagitis present 12/18/2024 2:00 PM EDT Office Visit [facility] Psychiatry Transplant at [address] [address] Lizeth Warren PsyD Alcohol use disorder (Primary Dx); PTSD (post-traumatic stress disorder) 12/18/2024 Refill [facility] Liver Transplant at [address] [address] Maureen Pantoja, ЮЛИЯ Encounter for therapeutic drug monitoring; S/P liver transplant ([facility]); Hypomagnesemia; Kidney transplant recipient; Hypertension, unspecified type; Gastroesophageal reflux disease, unspecified whether esophagitis present 12/17/2024 Chart Note [facility] Liver Transplant at [address] [address] Marlene Ro MA 12/16 Labs entered [facility] 12/12/2024 Telephone [facility] Liver Transplant at [address] [address] Maureen Pantoja, RN Results 12/09/2024 11:45 AM EDT Office Visit [facility] Psychiatry Transplant at [address] [address] Rebekah Linares LICDC Alcohol use disorder (Primary Dx) 12/09/2024 10:20 AM EDT Office Visit [facility] Liver Transplant at [address] [address] Harvey Domínguez III, MD Encounter for therapeutic drug monitoring (Primary Dx); S/P liver transplant ([facility]); Hypomagnesemia; Kidney transplant recipient; Hypertension, unspecified type; Gastroesophageal reflux disease, unspecified whether esophagitis present 12/09/2024 9:50 AM EDT Office Visit [facility] Liver Transplant at [address] [address] Leisa Juarez MD Kidney transplant recipient (Primary Dx); Immunosuppressive management encounter following liver transplant (CMS-HCC); Hypomagnesemia; S/P liver transplant (CMS-HCC); Hypertension, unspecified type; Hyperparathyroidism ([facility]) 12/09/2024 Social Work [facility] Liver Transplant at [address] [address] Kaylin Willard MSW 12/09/2024 Orders Only [facility] Liver Transplant at [address] [address] Maureen Pantoja, ЮЛИЯ 12/09/2024 Orders Only [facility] Liver Transplant at [address] [address] Maureen Pantoja, ЮЛИЯ Kidney transplant recipient (Primary Dx); Liver transplant recipient ([facility]); Viral disease exposure; Immunosuppression ([facility]) 12/09/2024 Telephone [facility] Liver Transplant at [place] [address] [place] [address] Mitzy Rojas MA 12/09/2024 Chart Note [facility] Liver Transplant at [place] [address] [place] [address] Marlene Ro MA 12/04/2024 Telephone [facility] Liver Transplant at [address] [place] [address] Maureen Pantoja, ЮЛИЯ Results 12/04/2024 Chart Note [facility] Liver Transplant at [address] [address] Marlene Ro MA FK Pending-12/0412/04/2024 Telephone [facility] Liver Transplant at [address] [place] [address] Kaylin Willard MSW 12/04/2024 Telephone [facility] Liver Transplant at [address] [place] [address] Marlene Ro MA 12/03/2024 Chart Note [facility] Liver Transplant at [address] [place] [address] Marlene Ro MA 12/02/2024 Telephone [facility] Liver Transplant at [address] [place] [address] Mitzy Rojas MA 12/01/2024 Telephone [facility] Liver Transplant at [address] [place] [address] Gladis Chisholm MA 11/27/2024 Telephone [facility] Liver Transplant at [address] [place] [address] Maureen Pantoja, RN Results 11/27/2024 Chart Note [facility] Liver Transplant at [address] [place] [address] Marlene Ro MA FK Pending 11/27 Labs 11/26/2024 Telephone [facility] Liver Transplant at [address] [place] [address] Maureen Pantoja, RN Results 11/25/2024 10:50 AM EDT Office Visit [facility] Liver Transplant at [address] [place] [address] Leisa Juarez MD Kaur, Taranpreet NADIYA (acute kidney injury) ([facility]) (Primary Dx); Kidney replaced by transplant; Metabolic acidosis; Hypervolemia associated with renal insufficiency 11/25/2024 10:20 AM EDT Office Visit [facility] Liver Transplant at [address] [place] [address] Lydia Sanchez MD Encounter for therapeutic drug monitoring (Primary Dx); S/P liver transplant ([facility]); Hypomagnesemia; Kidney transplant recipient; Hypertension, unspecified type; Gastroesophageal reflux disease, unspecified whether esophagitis present; Abdominal pain, unspecified abdominal location 11/25/2024 9:00 AM EDT Procedure visit [facility]rology at [facility] [address] [facility] [address] [place] [address] Julieta Rogers PA Retained ureteral stent of transplanted kidney ([facility]) (Primary Dx) 11/25/2024 Social Work [facility] Liver Transplant at [address] [place] [address] Kaylin Willard MSW 11/24/2024 Orders Only [facility] Liver Transplant at [address] [place] [address] Maureen Pantoja, ЮЛИЯ 11/21/2024 Orders Only [facility] at [facility] [address] [facility] [address] [place] [phone] Vasile Gordillo MA 11/21/2024 Telephone [facility] Liver Transplant at [address] [place] [address] Maureen Pantoja, RN Results 11/21/2024 Chart Note [facility] Liver Transplant at [address] [place] [address] Marlene Ro MA FK: 11/18 & 11/20 Pending 11/20/2024 Refill [facility] Liver Transplant at [address] [address] Maureen Pantoja, ЮЛИЯ 11/20/2024 Refill [facility] Liver Transplant at [address] [address] Maureen Pantoja, ЮЛИЯ 11/20/2024 Orders Only [facility] Liver Transplant at [address] [address] Maureen Pantoja, ЮЛИЯ S/P liver transplant ([facility]) (Primary Dx); Immunosuppression ([facility]); Viral disease exposure; Alcohol use 11/18/2024 Telephone [facility] Liver Transplant at [address] [address] Maureen Pantoja, RN Results 11/18/2024 Chart Note [facility] Liver Transplant at [address] [address] Marlene Ro MA 11/11/2024 10:30 AM EDT Office Visit [facility] Liver Transplant at [address] [address] Unknown, Attending Provider Jessica Colon Kidney replaced by transplant (Primary Dx); Hypervolemia associated with renal insufficiency 11/11/2024 10:00 AM EDT Office Visit [facility] Liver Transplant at [address] [address] Cosmo Pacheco MD Quillin, Harvey Talamantes III, MD Encounter for therapeutic drug monitoring (Primary Dx); Abdominal pain, unspecified abdominal location 11/11/2024 9:30 AM EDT Office Visit [facility] Psychiatry Transplant at [address] [place] [address] Lizeth Warren PsyD PTSD (post-traumatic stress disorder) (Primary Dx) 11/11/2024 8:[address] [facility] Outreach Lab [address] [place] [address] Harvey Domínguez III, MD Liver replaced by transplant ([facility]); Immunosuppressive management encounter following liver transplant ([facility]); Kidney transplant recipient 11/11/2024 Telephone [facility] Liver Transplant at [address] [address] Maureen Pantoja, ЮЛИЯ Results 11/10/2024 Orders Only [facility] Liver Transplant at [address] [address] Maureen Pantoja, ЮЛИЯ Liver transplant recipient ([facility]) (Primary Dx); Kidney transplant recipient; Immunosuppressive management encounter following liver transplant ([facility]) 11/10/2024 Orders Only [facility] Liver Transplant at [address] [address] Maureen Pantoja, ЮЛИЯ 11/09/2024 Telephone [facility] [address] [place] [address] Unknown, Attending Provider After Hours Call (Passing blood through stool states started this morning has had 3 bloody bowel movements kidney and liver txp done 2 weeks ago) 11/07/2024 Telephone [facility] Liver Transplant at [place] [address] [place] [address] Marlene Ro MA 11/07/2024 Telephone [facility] Liver Transplant at [address] [place] [address] Maureen Pantoja, ЮЛИЯ Results 11/07/2024 Chart Note [facility] Liver Transplant at [address] [place] [address] Marlene Ro MA FK Pending 11/04/2024 10:10 AM EDT Office Visit [facility] Liver Transplant at [address] [place] [address] Leisa Juarez MD Kidney transplant recipient (Primary Dx); Diarrhea of presumed infectious origin; Hypomagnesemia; Hypervolemia, unspecified hypervolemia type; Liver transplant recipient (CMS-HCC); Other hypervolemia; Hyperparathyroidism (CMS-HCC); Nausea and vomiting, unspecified vomiting type 11/04/2024 8:40 AM EDT Office Visit [facility] Liver Transplant at [address] [place] [address] Cosmo Pacheco MD Liver transplant recipient (CMS-HCC) (Primary Dx); Alcoholic cirrhosis of liver with ascites (CMS-HCC); Kidney transplant recipient; Acute kidney injury superimposed on CKD (CMS-HCC); CKD (chronic kidney disease) stage 4, GFR 15-29 ml/min (CMS-HCC); Immunosuppressive management encounter following liver transplant (CMS-HCC); Abdominal pain, unspecified abdominal location 11/04/2024 Telephone [facility] Liver Transplant at [address] [place] [address] Maureen Pantoja, RN Results 11/04/2024 Results Follow-Up [facility] Liver Transplant at [address] [place] [address] Maureen Pantoja, ЮЛИЯ Tacrolimus level, Hepatic Function Panel, Renal Function Panel w/EGFR, Additional followed-up results: 3 11/04/2024 Social Work [facility] Liver Transplant at [address] [place] [address] Kaylin Willard MSW 11/04/2024 Nutrition [facility] Kidney Transplant at [address] [place] [phone] Ben Weiss, DMITRY 11/03/2024 Chart Note [facility] Liver Transplant at [address] [place] [address] Hillary Fernandes, TnaiD Liver Transplant Pharmacy Discharge Note 11/03/2024 Telephone [facility] Liver Transplant at [address] [place] [phone] Marisela Martinez MA 10/31/2024 Orders Only [facility] Liver Transplant at [address] [place] [phone] Harvey Domínguez III, MD Liver replaced by transplant ([facility]) (Primary Dx); Immunosuppressive management encounter following liver transplant ([facility]) 10/29/2024 Travel 10/29/2024 Education Chart Note [facility] Liver Transplant at [place] [address] [place] [address] Crista Power RN 10/27/2024 2:34 AM EDT Anesthesia Event [facility] [address] [place] [phone] Rocky Manning MD Kopel, Lior, MD 10/27/2024 2:00 AM EDT - 10/27/2024 6:54 AM EDT Surgery [facility] [address] [place] [phone] Harvey Domínguez III, MD Donor Kidney Transplant , Back Bench Preparation Donor Kidney, Baseline Kidney transplant biopsy , Insertion of Indwelling Stent , Removal of Perihepatic packing 10/27/2024 Pharmacy Services [facility] [address] [place] [phone] Opal Cox, [place] 10/27/2024 Chart Note [facility] Kidney Transplant at [address] [place] [phone] Karen Rosen, RN I have verified that the donor serologies entered in Epic match the donor 10/27/2024 Chart Note [facility] Liver Transplant at [address] [place] [address] Crista Power, RN I introduced myself as inpatient liver/kidney social services coordinator, 10/27/2024 Orders Only [facility] Pancreas Transplant at [facility] [address] [place] [address] Abdulkadir Gaspar MD 10/26/2024 Chart Note [facility] Kidney Transplant at [address] [place] [address] Geri Vasquez RN 10/26/2024 Chart Note [facility] Liver Transplant at [address] [place] [address] Geri Vasquez RN 10/25/2024 10:54 PM EDT Anesthesia Event [facility] PERIOP [address] [facility] [place] [address] Eber Quinones MD Edwards, Anna, MD 10/25/2024 10:30 PM EDT - 10/26/2024 6:12 AM EDT Surgery [facility] PERIOP [address] [place] [address] Harvey Domínguez III, MD LIVER TRANSPLANT 10/25/2024 8:46 PM EDT - 11/02/2024 6:23 PM EDT Hospital Encounter [facility] 8CCP [address] [place] [address] Harvey Domínguez III, MD Haugen, Christine, MD Acute kidney injury superimposed on CKD ([facility]-HCC) (Primary Dx); Prophylactic antibiotic; Prolonged QT interval; Immunosuppression ([facility]-HCC); Abdominal pain, unspecified abdominal location Discharge Disposition: Home or Self Care WITHOUT Home Care Services 10/25/2024 Travel 10/25/2024 Telephone [facility] Liver Transplant at [address] [place] [phone] Krissy Crowell, RN DDLT patient instructions 10/25/2024 Telephone [facility] Liver Transplant at [address] [place] [address] Krissy Crowell, ЮЛИЯ 10/24/2024 Telephone [facility] Renal Hypertension Clinic at [address] [place] [address] Joann Davies MA Appointment 10/22/2024 Telephone [facility] Liver Transplant at [address] [place] [address] Mary Butler RN 10/22/2024 Chart Note [facility] Kidney Transplant at [address] [place] [phone] Gladis Rainey, RN Received most recent eGFR from today with result of 21. Pt meets CKD 10/22/2024 Chart Note [facility] Liver Transplant at [address] [place] [phone] Faraz Carballo, ЮЛИЯ 2nd ABO verified for SLK listing at the request of JOSE G Butler. 10/22/2024 Telephone [facility] Psychiatry Transplant at [address] [place] [phone] Lizeth Warren PsyD 10/22/2024 Chart Note [facility] [address] [place] [address] Aaron Gonzalez MD Candidacy for a simultaneous liver-kidney transplant 10/22/2024 Status Update [facility] Kidney Transplant at [address] [place] [address] Aaron Gonzalez MD 10/22/2024 Chart Note [facility] Liver Transplant at [address] [place] [address] Mary Butler, RN UNOS VERIFICATION CHECK FORM 10/22/2024 Orders Only [facility] Pancreas Transplant at [facility] [address] [place] [address] Abdulkadir Gaspar MD 10/22/2024 Chart Note [facility] Liver Transplant at [address] [place] [address] Mary Butler RN 10/21/2024 Telephone [facility] Gastroenterology at [facility] [address] [facility] [address] [place] [address] Gerri Peterson MD Medication Management (Requesting RX for New Medication ) 10/21/2024 Refill [facility] Gastroenterology at [facility] [address] [facility] [address] [place] [address] Gerri Peterson MD 10/20/2024 9:10 AM EDT - 10/20/2024 11:59 PM EDT Hospital Encounter [facility] Radiology [address] [place] [address] System, Provider Not In Discharge Disposition: Home or Self Care WITHOUT Home Care Services 10/20/2024 9:10 AM EDT - 10/20/2024 11:59 PM EDT Hospital Encounter [facility] Radiology [address] [place] [address] System, Provider Not In Discharge Disposition: Home or Self Care WITHOUT Home Care Services 10/20/2024 9:10 AM EDT - 10/20/2024 11:59 PM EDT Hospital Encounter [facility] Radiology [address] [place] [address] System, Provider Not In Discharge Disposition: Home or Self Care WITHOUT Home Care Services 10/20/2024 9:10 AM EDT - 10/20/2024 11:59 PM EDT Hospital Encounter [facility] Radiology [address] [place] [address] System, Provider Not In Discharge Disposition: Home or Self Care WITHOUT Home Care Services 10/20/2024 9:10 AM EDT - 10/20/2024 11:59 PM EDT Hospital Encounter [facility] Radiology [address] [place] [address] System, Provider Not In Discharge Disposition: Home or Self Care WITHOUT Home Care Services 10/20/2024 9:10 AM EDT - 10/20/2024 11:59 PM EDT Hospital Encounter [facility] Radiology [address] [place] [address] System, Provider Not In Discharge Disposition: Home or Self Care WITHOUT Home Care Services 10/20/2024 9:10 AM EDT - 10/20/2024 11:59 PM EDT Hospital Encounter [facility] Radiology [address] [place] [address] System, Provider Not In Discharge Disposition: Home or Self Care WITHOUT Home Care Services 10/20/2024 Orders Only [facility] Pancreas Transplant at [facility] [address] [place] [address] Abdulkadir Gaspar MD 10/20/2024 Telephone [facility] Gastroenterology at [facility] [address] [phone] Gerri Peterson MD Prescription Issue (RX Clarification Request ) 10/20/2024 Refill [facility] Gastroenterology at [facility] [address] [place] [phone] Gerri Peterson MD 10/20/2024 Telephone [facility] Liver Transplant at [address] [place] [phone] Mary Butler RN 10/17/2024 Chart Note [facility] Kidney Transplant at [address] [place] [address] Anny Cote, RN Copy of HLA report scanned into the media tab. Will follow up on GFR 10/17/2024 Chart Note [facility] Kidney Transplant at [address] [place] [address] Anny Cote RN 10/17/2024 Pharmacy Services [facility] Discharge Pharmacy [address] [place] [address] Ridge Menjivar RPh 10/14/2024 8:42 AM EDT - 10/14/2024 9:27 AM EDT Surgery [facility] Cardiac Communication Clerk [address] [place] [address] Irving Matta MD Left Heart Cath 10/14/2024 Chart Note [facility] Kidney Transplant at [address] [address] [facility] [address] 10/10/2024 12:01 PM EDT Anesthesia Event [facility] ENDOSCOPY [address] [place] [phone] Cady Bhat MD Nguyen, Quinn, MD 10/10/2024 10:36 AM EDT - 10/10/2024 11:06 AM EDT Surgery [facility] ENDOSCOPY [address] [place] [phone] 340 Lino Soto MD EGD 10/09/2024 Social Work [facility] Liver Transplant at [address] [address] Kaylin Willard MSW 10/09/2024 Chart Note [facility] Kidney Transplant at [address] [address] [facility] [address] call from [facility] [phone] 10/09/2024 Chart Note [facility] Kidney Transplant at [address] [address] [facility] [address] 10/07/2024 Chart Note [facility] Liver Transplant at [address] [address] Mary Butler RN Spoke with Blair Anderson today for evaluation for a combined liver and 10/07/2024 Chart Note [facility] Kidney Transplant at [address] [address] Anny Cote RN Received notice of in house evaluation. Message to nephrology 10/07/2024 Chart Note [facility] Kidney Transplant at [address] [address] Chey Nicole MA This MA received new referral for PT. Raul NICHOLAS once financially cleared. 10/07/2024 Chart Note [facility] Kidney Transplant at [address] [address] Anny Cote RN Simultaneous Liver-Kidney Transplant Referral 10/06/2024 Travel 10/05/2024 11:12 PM EDT - 10/17/2024 10:29 AM EDT Hospital Encounter [facility] 8E [address] [place] [address] Gómez Blanchard MD Wood, Sharice N, MD Thomas, Stephanie, MD Alcoholic cirrhosis of liver with ascites ([facility]-HCC) (Primary Dx); NADIYA (acute kidney injury) (CMS-HCC); Metabolic encephalopathy; SBP (spontaneous bacterial peritonitis) ([facility]-HCC); Neck pain with history of cervical spinal surgery; Metabolic acidosis with normal anion gap and bicarbonate losses; Encounter for pre-transplant evaluation for chronic liver disease; Thrombocytopenia (CMS-HCC); Coagulopathy (CMS-HCC); Anemia, unspecified type; Decompensated cirrhosis (CMS-HCC); Cirrhosis of liver with ascites, unspecified hepatic cirrhosis type ([facility]-HCC); Nonspecific abnormal finding on cardiac evaluation; Pain Discharge Disposition: Home or Self Care WITHOUT Home Care Services 10/05/2024 Telephone [facility] [address] [place] [address] Unknown, Attending Provider After Hours Call 10/01/2024 Telephone [facility] Liver Transplant at [address] [place] [address] Armand Salinas RN 09/30/2024 Social Work [facility] Liver Transplant at [address] [place] [address] Kaylin Willard MSW 09/29/2024 11:00 AM EDT Office Visit [facility] Psychiatry Transplant at [address] [place] [address] Lizeth Warren PsyD PTSD (post-traumatic stress disorder) (Primary Dx); Alcohol use disorder 09/26/2024 Abstract [facility] Gastroenterology at [facility] [address] [facility] [address] [place] [phone] Gerri Peterson MD 09/25/2024 11:25 AM EDT [facility] [address] [place] [address] Gerri Peterson MD Cirrhosis of liver with ascites, unspecified hepatic cirrhosis type (CMS-HCC); Pre-transplant evaluation for chronic liver disease; Alcoholic cirrhosis of liver without ascites (CMS-HCC) 09/25/2024 Social Work [facility] Liver Transplant at [address] [place] [facility] [address] [place] [address] Kaylin Willard MSW 09/25/2024 Telephone [facility] Interventional Radiology [address] [place] [address] Thad De Leon Appointment 09/25/2024 Orders Only [facility] Liver Transplant at [address] [place] [address] Mary Butler RN Pre-transplant evaluation for chronic liver disease (Primary Dx); Alcoholic cirrhosis of liver without ascites (CMS-HCC) 09/24/2024 Orders Only [facility] Gastroenterology at [facility] 222 [facility] [place] [address] [place] [phone] Gerri Peterson MD Cirrhosis of liver with ascites, unspecified hepatic cirrhosis type (CMS-HCC) (Primary Dx) 09/24/2024 Orders Only [facility]enterology at [facility] [address] [facility] [place] [address] [place] [address] Gerri Peterson MD Cirrhosis of liver with ascites, unspecified hepatic cirrhosis type (CMS-HCC) (Primary Dx) 09/23/2024 Telephone [facility] Gastroenterology at [facility] [address] [facility] [place] [address] [place] [address] Gerri Peterson MD Orders (Order Clarification Request/) 09/22/2024 Telephone [facility]astroenterology at [facility] [address] [facility] [place] [address] [place] [phone] Gerri Peterson MD Orders (Order Clarification Request ) from Last 3 Months Social History [...] the past 12 months has th e [employer], [employer], oil, or water [employer] threatened to shut off services in your [...] ( - season) 2024 03/17/2021, 07/25/2020, 06/27/2020 Immunization: Influenza (MyC adler) (#1) 2025 03/12/2024, 03/12/2023 Thyroid Function/TSH (MyChart) 10/07/2025 0 10/07/2024, 10/06/2024, 09/03/2024 Alcohol Misuse Screening 10/25/2025 025, 10/05/2024, 09/03/2024, Additional history exists Depression Screening 12/10/2025 12/10/2024, 12/10/2024, 09/29/2024, Additional history exists Renal Function/GFR 12/16/2025 12/16/2024, 0 12/08/2024, 12/04/2024, Additional history exists Immunization: DTaP/Tdap/Td ( 3 - Td or Tdap) 06/03/2028 06/03/2018, 09/13/2010 Hepatitis C Screening (MyChart) Completed 10/25/2024, 10/07/2024, 10/06/2024, Additional history exists HIV Screening Completed 11/25/2024, 10/12, 10/07/2024 Procedures Procedure Name Priority Date/Time Associated Diagnosis Comments TACROLIMUS LEVEL Routine 12/16/2024 10:05 AM EDT MAGNESIUM Routine 12/16/2024 10:05 AM EDT RENAL FUNCTION PANEL W/O EGFR Routine 12/16/2024 10:05 AM EDT PROTIME-INR Routine 12/16/2024 10:05 AM EDT CBC AND DIFFERENTIAL Routine 12/16/2024 10:05 AM EDT HEPATIC FUNCTION PANEL Routine 10:05 AM EDT TACROLIMUS LEVEL Routine 12/08/2024 10:43 AM EDT [...] AM EDT S/P liver transplant (CMS-HCC) Immunosuppression ([facility]-HCC) Alcohol use HIV-1 RNA, QUANTITATIVE, PCR Routine 11/25/2024 8:42 AM EDT S/P liver transplant (CMS-HCC) Immunosuppression ([facility]-HCC) Viral disease exposure HEPATITIS C RNA, QUANTITATIVE PCR Routine 11/25/2024 8:42 AM EDT S/P liver transplant (CMS-HCC) Immunosuppression ([facility]-HCC) Viral disease exposure HEPATITIS B VIRUS (HBV), REAL-TIME PCR, QUANT Routine 11/25/2024 8:42 AM EDT S/P liver transplant (CMS-HCC) Immunosuppression ([facility]-HCC) Viral disease exposure MAGNESIUM Routine 11/25/2024 [...] Routine 10/31/2024 10:19 AM EDT US DUPLEX [id number] COMPLETE Routine 10/31/2024 10:19 AM EDT ECG [...] STAT 10/28/2024 4:23 PM EDT US DUPLEX [id number] COMPLETE STAT 10/28/2024 4:23 PM EDT TRANSFUSE [...] STAT 10/27/2024 9:51 AM EDT US DUPLEX [id number] COMPLETE STAT 10/27/2024 9:51 AM EDT US [...] 6:15 AM EDT PREPARE RBC, LEUKOREDUCED Routine 06/16/ 2025 6:15 AM EDT PREPARE RBC, LEUKOREDUCED [...] EDT Acute kidney injury superimposed on CKD ([facility]-HCC) NE RENAL ALTRNSPLJ IMPLTJ GRF W/THAW SHED HEATER TENDER NEPHRECTOMY 10/27/2024 2:32 AM EDT Acute kidney injury superimposed on CKD ([facility]-HCC) 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 patel [...] 12:03 AM EDT SURGICAL PATHOLOGY EXAM Routine 06/15/20 25 12:00 AM EDT TRANSFUSE FRESH FROZEN PLASMA [...] LIPID PANEL Routine 10/07/2024 6:37 PM EDT [id number] (AAT) QUANTITATION & MUTATION Routine 10/07/2024 6:37 [...] Routine 10/07/2024 3:48 PM EDT US DUPLEX [id number] COMPLETE Routine 10/07/2024 3:48 PM EDT CARISA [...] 10/06/2024 4:01 AM EDT UPPER RESPIRATORY VIRAL/BACTERIAL PANEL-INFORMATION SECURITY ANALYST ONLY Routine 10/06/2024 3:12 AM EDT XR [...] with ascites, unspecified hepatic cirrhosis type (CMS-HCC) from Last 3 Months Results * Hepatic Function Panel (12/16/2024 10:05 AM EDT) Only the most recent of39 resultswithin the time period is included. Bilirubin, Direct 0.2 Bilirubin, Indirect 0.2 Alkaline Phosphatase 73 ALT 15 AST 19 Total Bilirubin 0.4 Total Protein 6.2 Plasma Narrative Resulting Agency Comment [facility] Provider MD LAB BLOOD ORDERABLES Denisse l Result * Tacrolimus level (12/16/2024 10:05 AM EDT) Only the most recent of17 resultswithin the time period is included. Pathologist [facility] Tacrolimus Lvl 11.3 6 - 15 ng/mL Whole Blood Result [facility] Provider MD LAB BLOOD ORDERABLES Denisse l Result * Protime-INR (12/16/2024 10:05 AM EDT) Only the most recent of27 resultswithin the time period is included. Pathologist [facility] INR 0.95 0.9 - 1.1 Plasma Narrative Resulting Agency Comment [facility] Provider MD LAB BLOOD ORDERABLES Denisse l Result * (ABNORMAL) CBC and differential (12/16/2024 10:05 AM EDT) Only the most recent of9 resultswithin the time period is included. Hemoglobin 11.3(A) 13.5 - 17.5 g/dL Hematocrit 34.3(A) 41 - 53 % RDW 16.4(A) 11.5 - 14.5 % Lymphocytes Absolute 1.2 / L Monocytes Absolute 0.3 / L Eosinophils Absolute 0.0 / L Basophils Absolute 0.0 / L Neutrophils Relative 67.1 46 - 78 % Lymphocytes Relative 25.3 18 - 52 % Monocytes Relative 6.0 3 - 10 % Eosinophils Relative 0.6 0 - 6 % Basophils Relative 0.6 0 - 3 % Neutrophils Absolute 3.2 / L MCH 30.5 26.0 - 34.0 pg MCHC 32.9 30 - 37 g/dL MCV 92.7 82.0 - 108.0 fL Platelets 123 K/ L RBC 3.70(A) 4.50 - 5.90 10^6/ L WBC 4.8 10^3/mL Blood Narrative Resulting Agency Comment [facility] Provider MD LAB BLOOD ORDERABLES Denisse l Result * (ABNORMAL) Magnesium (12/16/2024 10:05 AM EDT) Only the most recent of31 resultswithin the time period is included. Pathologist [facility] Magnesium 1.3(A) 1.6 - 2.4 mg/dL Plasma Narrative Resulting Agency Comment [facility] MD LAB BLOOD ORDERABLES Denisse l Result * (ABNORMAL) Renal Function Panel w/o EGFR (12/16/2024 10:05 AM EDT) Only the most recent of11 resultswithin the time period is included. [facility] Glucose 94 BUN 14 CO2 23(A) 13 - 22 mmol/L Creatinine 0.80 Potassium 4.3 Sodium 141 Chloride 108 Phosphorus 4.9 2.5 - 4.9 mg/dL Calcium 10.0 EGFR 107 mg/dL Albumin 4.4 3.5 - 5.0 g/dL Blood Narrative Resulting Agency Comment [facility] Result [facility] MD LAB BLOOD ORDERABLES Denisse l Result * Urine Protein, Tot, Random (w/o Creat) (12/08/2024 10:43 AM EDT) Only the most recent of2 resultswithin the time period is included. Total Protein, Ur 11.0 Urine Narrative Resulting Agency Comment [facility] Result [facility] Provider URINE ORDERABLES Final Re sult * Creatinine, urine, random (12/08/2024 10:43 AM EDT) Only the most recent of3 resultswithin the time period is included. Creatinine, Urine 65 Urine Narrative Resulting Agency Comment [facility] Result [facility] Provider URINE ORDERABLES Final Re sult [...] pH, UA 6.0 4.5 - 8.0 Specific [place], UA 1.010 1.005 - 1.030 Clarity, UA Clear Clear Color, UA Yellow Light Yellow, Yellow Urine Narrative Resulting Agency Comment [facility] Result [facility] Provider URINE ORDERABLES Final Re sult * Urine culture (12/08/2024 10:43 AM EDT) Only the most recent of3 resultswithin the time period is included. Urine Culture, Comprehensive No growth URINE SPECIMEN / Unknown Result [facility] Provider MICROBIOLOGY - GENERAL OR DERABLES Final Result * Phosphatidylethanol Confirmation, B (11/25/2024 8:42 AM EDT) Only the most recent of4 resultswithin the time period is included. PETH 16:0/18.1 (POPETH) 14 Cutoff: 10 ng/mL 11/28/2024 8:24 AM EDT [facility] Comment: Phosphatidylethanol [...] PEth Interpretation Positive. 11/28 8:24 AM EDT [facility] Comment: ADDITIONAL INFORMATION This report is intended for use in clinical monitoring and management of patients. It is not intended for use in employment-related testing. This test was developed and its performance characteristics determined by [facility] in a manner consistent with CLIA requirements. This test has not been cleared or approved by the U.S. Food and Drug Administration. Test Performed by: [place] [address] Passenger Coach Driver: Kathy Ortiz Ph.D.; CLIA# [id number] Whole Blood 11/25/2024 8:42 AM EDT 11/28/2024 8:24 AM EDT Narrative [facility] - 11/28/2024 8:24 AM EDT One time lab order to be collected with next set of standing liver transplant labs. Please fax all results to [phone]. Call critical results to [phone]. us Harvey Domínguez III, MD LAB BLOOD ORDERABLE S Final Result [facility] [address] * Hepatitis B Virus (HBV), PCR, Quant (11/25/2024 8:42 AM EDT) Hep B Viral DNA IU/ML Not Detected IU/mL 11/28/2024 10:09 AM EDT [facility] Comment:Test methodology for HBV DNA quantification [...] IU/mL 11/28/2024 10:09 AM EDT [facility] Comment:HBV DNA not detected . Plasma 11/25/2024 8:42 AM EDT 11/25/2024 10:59 AM EDT Narrative [facility] - 11/28/2024 10:09 AM EDT One time lab order to be collected with next set of standing liver transplant labs. UNOS requirement. Please fax all results to [phone]. Call critical results to [phone]. us Harvey Domínguez III, MD LAB BLOOD ORDERABLE S Final Result [facility] [address] * HIV-1 RNA, Quantitative, PCR (11/25/2024 8:42 AM EDT) HIV 1 Copies Not Detected copies/mL 11/26/2024 10:57 AM EDT [facility] Comment:Test methodology for HIV-1 RNA quantification is an FDA-approved nucleic acid amplification assay. The Lower Limit of Quantitation (LLoQ) is 20 copies/mL. The linear range is 20- to 10,000,000 copies/mL. The Limit of Detection (LoD) is 13.2 copies/mL. The reference range is Not Detected. HIV [id number] See Note [id number] /mL 11/26/2024 10:57 AM EDT [facility] Comment:HIV-1 RNA not detect ed. Plasma 11/25/2024 8:42 AM EDT 11/25/2024 10:59 AM EDT [facility] - 11/26/2024 10:57 AM EDT One time lab order to be collected with next set of standing liver transplant labs. UNOS requirement. Please fax all results to [phone]. Call critical results to [phone]. Harvey Domínguez III, MD LAB BLOOD ORDERABLE S Final Result Performing Organization Address City/[facility]/ZIP Co de Phone Number [facility] [address] [facility]. [address] * Hepatitis C RNA, Quantitative PCR (11/25/2024 8:42 AM EDT) Flattr Units Not Detected IU/mL 11/27/2024 11:35 AM EDT [facility] Comment:Test methodology for HCV RNA quantification [...] [facility] Comment:HCV RNA not detected . Plasma 11/25/2024 8:42 AM EDT 11/25/2024 10:59 AM EDT [facility] - 11/27/2024 11:35 AM EDT One time lab order to be collected with next set of standing liver transplant labs. UNOS requirement. Please fax all results to [phone]. Call critical results to [phone]. Harvey Domínguez III, MD LAB BLOOD ORDERABLE S Final Result Performing Organization Address City/[facility]/ZIP Co de Phone Number [facility] [address] [place], [place] [address] * Differential (11/25/2024 8:42 AM EDT) Only the most recent of5 resultswithin the time period is included. Neutrophils Relative 73.2 40.0 - 80.0 % 11/25/2024 10:25 AM EDT [facility] Lymphocytes Relative 19.2 15.0 - 45.0 % 11/25/2024 10:25 AM EDT [facility] Monocytes Relative 6.3 0.0 - 12.0 % 11/25/2024 10:25 AM EDT [facility] Eosinophils Relative 0.4 0.0 - 8.0 % 11/25/2024 10:25 AM EDT [facility] Basophils Relative 0.9 0.0 - 1.0 % 11/25/2024 10:25 AM EDT [facility] nRBC 0 0 - 0 /100 WBC 11/25/2024 10:25 AM EDT [facility] Neutrophils Absolute 5,929 1,520 - 8,640 /uL 11/25/2024 10:25 AM EDT [facility] Lymphocytes Absolute 1,555 570 - 4,860 /uL 11/25/2024 10:25 AM EDT [facility] Monocytes Absolute 510 0 - 1,296 /uL 11/25/2024 10:25 AM EDT [facility] Eosinophils Absolute 32 0 - 864 /uL 11/25/2024 10:25 AM EDT [facility] Basophils Absolute 73 0 - 108 /uL 11/25/2024 10:25 AM EDT [facility] Whole Blood 11/25/2024 8:42 AM EDT 11/25/2024 9:44 AM EDT Narrative [facility] - 11/25/2024 10:25 AM EDT Standing orders to be drawn: Every Sunday and before 9am and prior to patient taking morning medications. Liver Transplant Fax results to [phone] Call Critical results to [phone] us Harvey Domínguez III, MD LAB BLOOD ORDERABLE S Final Result [facility] [address] * (ABNORMAL) CBC (11/25/2024 8:42 AM EDT) Only the most recent of37 resultswithin the time period is included. WBC 8.1 3.8 - 10.8 10E3/uL 11/25/2024 10:25 AM EDT [facility] RBC 3.71(L) 4.20 - 5.80 10E6/uL 11/25/2024 10:25 AM EDT [facility] Hemoglobin 11.7(L) 13.2 - 17.1 g/dL 11/25/2024 10:25 AM EDT [facility] Hematocrit 33.8(L) 38.5 - 50.0 % 11/25/2024 10:25 AM EDT [facility] MCV 91.1 80.0 - 100.0 fL 11/25/2024 10:25 AM EDT [facility] MCH 31.5 27.0 - 33.0 pg 11/25/2024 10:25 AM EDT [facility] MCHC 34.6 32.0 - 36.0 g/dL 11/25/2024 10:25 AM EDT [facility] RDW 20.0(H) 11.0 - 15.0 % 11/25/2024 10:25 AM EDT [facility] Platelets 193 140 - 400 10E3/uL 11/25/2024 10:25 AM EDT [facility] Comment:Slide Reviewed for P LT Clumps. None Seen. MPV 6.9(L) 7.5 - 11.5 fL 11/25/2024 10:25 AM EDT [facility] Whole Blood 11/25/2024 8:42 AM EDT 11/25/2024 9:44 AM EDT us Gerri Peterson MD LAB BLOOD ORDERABLES Final Resu lt [facility] [address] * (ABNORMAL) Comprehensive metabolic panel (11/25/2024 8:42 AM EDT) Only the most recent of4 resultswithin the time period is included. Sodium 141 133 - 146 mmol/L 11/25/2024 10:20 AM [facility] Potassium 4.3 3.5 - 5.3 mmol/L 11/25/2024 10:20 AM [facility] Chloride 106 98 - 110 mmol/L 11/25/2024 10:20 AM [facility] CO2 23 21 - 33 mmol/L 11/25/2024 10:20 AM [facility] Anion Gap 12 3 - 16 mmol/L 11/25/2024 10:20 AM [facility] BUN 43(H) 7 - 25 mg/dL 11/25/2024 10:20 AM [facility] Creatinine 1.59(H) 0.60 - 1.30 mg/dL 11/25/2024 10:20 AM [facility] Glucose 93 70 - 100 mg/dL 11/25/2024 10:20 AM [facility] Calcium 10.0 8.6 - 10.3 mg/dL 11/25/2024 10:20 AM [facility] Total Bilirubin 0.7 0.0 - 1.5 mg/dL 11/25/2024 10:20 AM [facility] AST 9(L) 13 - 39 U/L 11/25/2024 10:20 AM [facility] ALT 22 7 - 52 U/L 11/25/2024 10:20 AM [facility] Alkaline Phosphatase 198(H) 36 - 125 U/L 11/25/2024 10:20 AM [facility] Total Protein 7.0 6.4 - 8.9 g/dL 11/25/2024 10:20 AM [facility] Albumin 4.5 3.5 - 5.7 g/dL 11/25/2024 10:20 AM [facility] Osmolality, Calculated 303 278 - 305 mOsm/kg 11/25/2024 10:20 AM [facility] EGFR 56 11/25/2024 10:20 AM [facility] Comment:As of 2021, the [...] ORDERABLES Final Resu lt Performing Organization Address City/[facility]/ZIP Co de Phone Number [facility] [address] [facility]. [address] * (ABNORMAL) Post Kidney Transplant Urine Culture (11/11/2024 9:13 AM EDT) Only the most recent of3 resultswithin the time period is included. Culture Result Enterococcus faecium(A) [facility] Comment: <1,000 cfu/mL Identified by MALDI-TOF MS No Further Workup Midstream Urine URINE SPECIMEN / Unknown 11/11/2024 9:13 AM EDT 11/11/2024 10:17 AM EDT Caron Santos CNP MICROBIOLOGY - GENERAL OR DERABLES Final Result Performing Organization Address [facility]/ZIP Co de Phone Number [facility] [address] [facility]. [address] * (ABNORMAL) Renal Function Panel w/EGFR [...] 21 - 33 mmol/L 11/11/2024 10:[address] [facility] Anion Gap 9 3 - 16 mmol/L 11/11/2024 10:[address] [facility] BUN 27(H) 7 - 25 mg/dL 11/11/2024 10:[address] [facility] Creatinine 1.14 0.60 - 1.30 mg/dL 11/11/2024 10:51 AM EDT [facility] Glucose 97 70 - 100 mg/dL 11/11/2024 10:51 AM EDT [facility] Calcium 8.6 8.6 - 10.3 mg/dL 11/11/2024 10:[address] [facility] Phosphorus 4.4 2.1 - 4.7 mg/dL 11/11/2024 10:[address] [facility] Albumin 3.8 3.5 - 5.7 g/dL 11/11/2024 10:51 AM [facility] Osmolality, Calculated 297 278 - 305 mOsm/kg 11/11/2024 10:[address] [facility] EGFR 83 11/11/2024 10:51 AM [facility] Comment:As of 2021, the [...] morning medications. Liver Transplant Fax results to [phone] Call Critical results to [phone] DO NOT REPLACE RENAL PANEL or HEPATIC FUNCTION PANEL w/ CMP, BMP or HEPATIC PROFILE Harvey Domínguez III, MD LAB BLOOD ORDERABLE S Final Result Performing Organization Address [facility] de Phone Number [facility] [address] [facility]. [address] * Protein / creatinine ratio, urine [...] Final Re sult Performing Organization Address [facility] Co de Phone Number [facility] [address] [facility] * EKG - scan (11/03/2024 9:07 [...] [facility] [address] [address], [facility] * X-ray [...] Findings of postsurgical changes in the left [place] kidney. Mild right hydronephrosis without an obstructive [...] Findings of postsurgical changes in the left [place] kidney. Mildright hydronephrosis without an obstructive course [...] QT: 400 ms QTc: 456 ms P [place]: 49 degrees R [place]: 3 degrees T [place]: 14 degrees Diagnosis Line: NORMAL SINUS RHYTHM ^ NORMAL ECG ^ ^ Confirmed by MD REID JAMES ([id number]) on 11/02/2024 6:56:52 AM Mikhailra Alex [employer] ECG ORDERABLES Final Result MUSE * US Duplex [id number] Comp (10/31/2024 10:19 AM EDT) Only the [...] EXAM: US ABDOMEN LIMITED EXAM: US DUPLEX [id number] COMPLETE INDICATION: Post-op liver transplant COMPARISON: None [...] visualized secondary to poor acoustic windows. The [place] right kidney measures 11.6 cm in length. [...] EXAM: US ABDOMEN LIMITED EXAM: US DUPLEX [id number] COMPLETE INDICATION: Post-op liver transplant COMPARISON: None [...] well visualized secondary to poor acousticwindows. The [place] right kidney measures 11.6 cm in length. [...] 10/31/2024 10:35 AM EDT us Beata Horner [employer] TECH[employer]IC[employer] IMG US ORDERABLES Final R esult * [...] EXAM: US ABDOMEN LIMITED EXAM: US DUPLEX [id number] COMPLETE INDICATION: Post-op liver transplant COMPARISON: None [...] visualized secondary to poor acoustic windows. The [place] right kidney measures 11.6 cm in length. [...] EXAM: US ABDOMEN LIMITED EXAM: US DUPLEX [id number] COMPLETE INDICATION: Post-op liver transplant COMPARISON: None [...] well visualized secondary to poor acousticwindows. The [place] right kidney measures 11.6 cm in length. [...] 10/31/2024 10:29 AM EDT us Beata Horner [facility] US ORDERABLES Final R esult * Prepare RBC, leukoreduced, 1 Units (10/29/2024 6:16 AM EDT) Only the most recent of7 resultswithin the time period is included. Product Code T1984R09 HCLL Unit Number [id number] HCLL Dispense Status Presumed Transfused_PT HCLL Blood Expiration Date [id number] [facility] Coding System [id number] [facility] Blood Bank Product us Shay Guzmán [...] [facility] Citrated Kaolin W/Heparinase Reaction Time (TEGECMOLIVER) 7.4 4.3 - 8.3 minutes 10/29/2024 7:04 AM EDT [facility] Citrated Kaolin Maximum Amplitude (TEGECMOLIVER) 52.9 52.0 - 69.0 mm 10/29/2024 7:04 AM EDT [facility] Citrated Functional Fibrinogen W/Heparinase Maximum Amplitude(TEGEC MOLIVER) 20.7 15.0 - 34.0 mm 10/29/2024 7:04 AM EDT [facility] Citrated Rapid Teg W/Heparinase Maximum Amplitude (TEGECMOLIVER) 49.7(L) 53.0 - 69.0 mm 10/29/2024 7:04 AM EDT [facility] Citrated Kaolin w/Heparinase Percent Lysis (TEGECMOLIVER) 0.0 0.0 - 3.2 % 10/29/2024 7:04 AM EDT [facility] Whole Blood (Citrate) 10/29/2024 5:07 AM EDT 10/29/2024 5:10 AM EDT us Kemar Sahni MD LAB BLOOD ORDERABLES Final Result Performing Organization Address [facility] Co de Phone Number [facility] [address] * Transfuse RBC Transfusion Rate: Per dept routine (10/28/2024 5:23 PM EDT) Only the most recent of17 resultswithin the time period is included. us Shay Guzmán MD NURSING TREATMENT OR DERABLES - BLOOD ADMIN Final Result Performing Organization Address City/[facility] Co de Phone Number EXTERNAL * (ABNORMAL) Lactic Acid, STAT (10/28/2024 11:09 AM EDT) Only the most recent of10 resultswithin the time period is included. Lactate 0.3(L) 0.5 - 2.2 mmol/L 10/28/2024 11:37 AM EDT [facility] Plasma 10/28/2024 11:0 9 AM EDT 10/28/2024 11:15 AM EDT Carlos Marks MD LAB BLOOD ORDERABLES Final Result [facility] [address] [facility] [place] [address], [facility] * Prepare Platelets, leukoreduced (10/28/2024 6:15 AM EDT) Only the most recent of5 resultswithin the time period is included. Product Code R4608V53 HCLL Unit Number [id number] HCLL Dispense Status Presumed Transfused_PT HCLL Blood Expiration Date HCLL Coding System [id number] HCLL Product Code E6750E16 HCLL Unit Number [id number] HCLL Dispense Status Presumed Transfused_PT HCLL Blood Expiration Date HCLL Coding System [id number] HCLL us Attending Provider Unknown BLOOD BANK PRODUCT OR DERABLES Final Result Performing Organization Address City/[facility]/ZIP Co de Phone Number HCLL * Prepare Fresh Frozen Plasma (10/28/2024 6:15 AM EDT) Only the most recent of5 resultswithin the time period is included. Product Code X7459P05 HCLL Unit Number [id number] HCLL Dispense Status Released from Crossmatch_RE HCLL Blood Expiration Date HCLL Coding System NBZE190 HCLL Product Code F0742E42 HCLL Unit Number [id number] HCLL Dispense Status Presumed Transfused_PT HCLL Blood Expiration Date HCLL Coding System XMLN596 HCLL Product Code G8547E07 HCLL Unit Number [id number] HCLL Dispense Status Released from Crossmatch_RE HCLL Blood Expiration Date HCLL Coding System SZVB714 HCLL Product Code X2787X07 HCLL Unit Number [id number] HCLL Dispense Status Presumed Transfused_PT HCLL Blood Expiration Date HCLL Coding System QHTI049 HCLL Product Code E1041J03 HCLL Unit Number [id number] HCLL Dispense Status Released from Crossmatch_RE HCLL Blood Expiration Date [id number] HCLL Coding System [id number] HCLL us Attending Provider Unknown BLOOD BANK PRODUCT OR DERABLES Final Result HCLL * Prepare Cryoprecipitate, 1 Units (10/28/2024 6:15 AM EDT) Only the most recent of4 resultswithin the time period is included. Product Code R4354Q66 HCLL Unit Number [id number] HCLL Dispense Status Presumed Transfused_PT HCLL Blood Expiration Date [id number] HCLL Coding System XWTK025 HCLL Product Code P0623A30 HCLL Unit Number [id number] HCLL Dispense Status Presumed Transfused_PT HCLL Blood Expiration Date [id number] HCLL Coding System [id number] HCLL Blood Bank Product John Pina MD BLOOD BANK PRODUCT ORDERABLES F inal Result Performing Organization Address City/[facility]/ZIP Co de Phone Number HCLL * (ABNORMAL) Blood Gas, Arterial, STAT (10/27/2024 2:40 PM EDT) Only the most recent of6 resultswithin the time period is included. O2 Sat, Arterial 98 10/27/2024 2:46 PM EDT [facility] FIO2 RA 10/27/2024 2:46 PM EDT [facility] pH, Arterial 7.37 7.35 - 7.45 10/27/2024 2:46 PM EDT [facility] pCO2, Arterial 35 35 - 45 mm Hg 10/27/2024 2:46 PM EDT [facility] pO2, Arterial 92 80 - 100 mm Hg 10/27/2024 2:46 PM EDT [facility] HCO3, Arterial 21(L) 22 - 26 mmol/L 10/27/2024 2:46 PM EDT [facility] CO2 Content,Arteri al 21(L) 23 - 27 mmol/L 10/27/2024 2:46 PM EDT [facility] Base Excess, Arterial -4.6(L) -2.0 - 3.0 mmol/L 10/27/2024 2:46 PM EDT [facility] %HBO2, Arterial 95.4 95.0 - 98.0 % 10/27/2024 2:46 PM EDT [facility] Carboxyhemoglo bin, Arterial 1.6 % 10/27/2024 2:46 PM EDT [facility] Comment: CARBOXYHEMOGLOBIN (CO) REFERENCE RANGES: Non-Smokers: <2 % Smokers: <8 % TOXIC: >20 % Methemoglobin, Arterial 1.0 0.0 - 1.5 % 10/27/2024 2:46 PM EDT [facility] Reduced hemoglobin, Arterial 2.1 0.0 - 5.0 % 10/27/2024 2:46 PM EDT [facility] Blood, Arterial 10/27/2024 2 :40 PM EDT 10/27/2024 2:44 PM EDT Narrative [facility] - 10/27/2024 2:46 PM EDT Post extubation us John Coulter MD LAB BLOOD ORDERABLES Final R esult [facility] [address] [address], [facility] * CARISA Rhythm Strip - Scan (10/27/2024 9:25 AM EDT) Only the most recent of7 resultswithin the time period is included. us Scanning [facility] SCAN DOCS - [...] 10/27/2024 9:22 AM EDT John Coulter MD [facility] DIAGNOSTIC IMAGING ORDER PAL Final Result * (ABNORMAL) Katie-Watkins virus VCA IgG Antibody (10/27/2024 8:00 AM EDT) EBV VCA IgG Positive( A) Negative 10/27/2024 11:30 AM EDT [facility] Comment:Presence of detectab le VCA IgG antibodies. 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 EBV IGG NUM 314.00(H) 0.00 - 17.99 U/mL 10/27/2024 11:30 AM EDT [facility] Serum 10/27/2024 8:00 AM EDT 10/27/2024 8:20 AM EDT Kemar Sahni MD LAB BLOOD ORDERABLES Final Result [facility] [address] * Hemoglobin A1c (10/27/2024 8:00 AM EDT) Only the most recent of2 resultswithin the time period is included. Hemoglobin A1C 5.0 4.0 - 5.6 % 10/27/2024 11:12 AM EDT [facility] Comment: Hemoglobin A1c Interpretation Guidelines: Normal: [...] [facility] [address] [facility]. [address] * X-ray Abdomen AP view (10/27/2024 [...] [facility] pH (ABGP) 7.30(L) 7.35 - 7.45 10/27/2024 6:17 AM EDT [facility] PCO2 (ABGP) 41 35 - 45 mm Hg 10/27/2024 6:17 AM EDT [facility] PO2 (ABGP) 192(H) 80 - 100 mm Hg 10/27/2024 6:17 AM EDT [facility] HCO3 (ABGP) 21(L) 22 - 26 mmol/L 10/27/2024 6:17 AM EDT [facility] CO2 Content (ABGP) 22(L) 23 - 27 mmol/L 10/27/2024 6:17 AM EDT [facility] Base Excess (ABGP) -5.7(L) -2.0 - 3.0 mmol/L 10/27/2024 6:17 AM EDT [facility] Sodium (ABGP) 138 136 - 146 mEq/L 10/27/2024 6:17 AM EDT [facility] Potassium (ABGP) 3.3(L) 3.5 - 5.0 mEq/L 10/27/2024 6:17 AM EDT [facility] Comment:In the event of in-v itro hemolysis, potassium results may be falsely elevated. Always interpret lab results in conjunction with clinical findings. If hemolysis is suspected, a serum sample may be collected for repeat assessment of potassium. Calcium, Free (ABGP) 5.28 4.50 - 5.30 mg/dL 10/27/2024 6:17 AM EDT [facility] Glucose (ABGP) 112(H) 70 - 100 mg/dL 10/27/2024 6:17 AM EDT [facility] Comment:There is interferenc e with whole blood glucose results on this method when Hematocrit is <25% or >60%. HCT (ABGP) 20.0(L) 40.0 - 52.0 % 10/27/2024 6:17 AM EDT [facility] HGB (ABGP) 6.5(L) 14.0 - 18.0 g/dL 10/27/2024 6:17 AM EDT [facility] %HBO2 (ABGP) 96.8 95.0 - 98.0 % 10/27/2024 6:17 AM EDT [facility] Carboxyhgb (ABGP) 2.1 % 025 6:17 AM EDT [facility] Comment: CARBOXYHEMOGLOBIN (CO) REFERENCE RANGES: Non-Smokers: <2 % Smokers: <8 % TOXIC: >20 % Methemoglobin (ABGP) 1.0 0.0 - 1.5 % 10/27/2024 6:17 AM EDT [facility] Reduced Hemoglobin (ABGP) 0.2 0.0 - 5.0 % 10/27/2024 6:17 AM EDT [facility] Lactic Acid (ABGP) 0.4(L) 0.5 - 1.6 mmol/L 10/27/2024 6:17 AM EDT [facility] Blood, Arterial 10/27/2024 6 :09 AM EDT 10/27/2024 6:14 AM EDT Ben Blake MD LAB BLOOD ORDERABLES Final Re sult [facility] [address] [place] [address], [facility] * Transfuse [...] MD LAB BLOOD ORDERABLES Final Resul t [facility] [address] [facility] [place] [address] * Surgical Pathology Exam (10/27/2024 2:38 AM EDT) Only the most recent of2 resultswithin the time period is included. Tissue LEFT KIDNEY STRUCTURE / Unknown 10/27/2024 2:38 AM EDT Narrative [facility] - 10/27/2024 12:00 AM EDT CASE: [id number] PATIENT: BLAIR ANDERSON Clinical History: Transplant kidney with bile duct reconstruction Pre-Operative Diagnosis: Acute kidney injury superimposed on CKD Post-Operative Diagnosis: None Given Specimen(s) Submitted: A. baseline renal biopsy ; B. right lobe liver biopsy; C. left lobe liver biopsy CPT Code(s): 52136 X 1; 54449 X 2; 19336 X 4 Additional Information: FINAL DIAGNOSIS: A. [...] Pathologist signing this report is located at [facility], [address] [place] [address], [id number], , CLIA ID: [id number] ADDENDUM: A. Kidney, allograft, baseline, wedge biopsy: [...] Pathologist signing this report is located at [facility], [address] [place] [address], [id number], , CLIA ID: [id number] Kemar Sahni MD PATHOLOGY/CYTOLOGY ORDERABL ES Edited Result - Final [facility] * Routine Culture plus Stain (10/27/2024 2:15 AM EDT) Only the most recent of2 resultswithin the time period is included. Gram Stain Result No Polymorphonuclear Leukocytes Seen [facility] Gram Stain Result No Organisms Seen; [facility] Culture Result No Growth After 3 Days [facility] Fluid SPECIMEN FROM KIDNEY / Unknown 10/27/2024 2:15 AM EDT 10/27/2024 4:24 AM EDT Narrative [facility] - 10/30/2024 9:26 AM EDT 1) perfusate Harvey Domínguez III, MD MICROBIOLOGY - GENE RAL ORDERABLES Final Result Performing Organization Address City/[facility]/ZIP Co de Phone Number [facility] [address] [facility]. [address] * Fungus culture (10/27/2024 2:15 AM EDT) Culture Result No Fungus Isolated At 4 Weeks [facility] Fluid SPECIMEN FROM KIDNEY / Unknown 10/27/2024 2:15 AM EDT 10/27/2024 4:24 AM EDT Narrative [facility] - 11/24/2024 7:52 AM EDT 1) perfusate Harvey Domínguez III, MD MICROBIOLOGY - GENE RAL ORDERABLES Final Result [facility] [address] [facility]. [address] * Anaerobic culture (10/27/2024 2:15 AM EDT) Culture Result No Anaerobes Isolated in 5 Days [facility] Fluid SPECIMEN FROM KIDNEY / Unknown 10/27/2024 2:15 AM EDT 10/27/2024 4:24 AM EDT Narrative [facility] - 10/31/2024 11:43 AM EDT 1) perfusate us Harvey Domínguez III, MD MICROBIOLOGY - GENE RAL ORDERABLES Final Result [facility] [address] [place] [address], [facility] * (ABNORMAL) TEG-Standard Global Hemostasis (Rapid TEG with Heparin Effect, Contains a Baseline TEG) (10/27/2024 1:51 AM EDT) Only the most recent of2 resultswithin the time period is included. [facility] Citrated Kaolin Reaction Time (TEGHEPARINASE) 10.6(H) 4.6 - 9.1 minutes 10/27/2024 2:44 AM EDT [facility] Citrated Rapid Teg Maximum Amplitude (TEGHEPARINASE) 42.3(L) 52.0 - 70.0 mm 10/27/2024 2:44 AM EDT [facility] Citrated Functional Fibrinogen Maximum Amplitude (TEGHEPARINASE) 15.0 15.0 - 32.0 mm 10/27/2024 2:44 AM EDT [facility] Citrated Kaolin W/Heparinase Reaction Time (TEGHEPARINASE) 10.5(H) 4.3 - 8.3 minutes 10/27/2024 2:44 AM EDT [facility] Citrated Kaolin K-Time (TEGHEPARINASE) 2.9(A) 0.8 - 2.1 minutes 10/27/2024 2:44 AM EDT [facility] Citrated Kaolin Angle (TEGHEPARINASE) 60.4(A) 63.0 - 78.0 degrees 10/27/2024 2:44 AM EDT [facility] Citrated Kaolin Maximum Amplitude (TEGHEPARINASE) 42.9(L) 52.0 - 69.0 mm 10/27/2024 2:44 AM EDT [facility] Citrated Functional Fibrinogen- Fibrinogen Level (TEGHEPARINASE) 273.7(L) 278.0 - 581.0 mg/dL 10/27/2024 2:44 AM EDT [facility] Whole Blood (Citrate) 10/27/2024 1:51 AM EDT 10/27/2024 2:03 AM EDT John Pina MD LAB BLOOD ORDERABLES Final Resu lt Performing Organization Address City/[facility]/ZIP Co de Phone Number [facility] [address] [place] [address], [facility] * Calcium Free, Serum (10/27/2024 12:13 AM EDT) Only the most recent of2 resultswithin the time period is included. Free Calcium, Ser 5.20 4.40 - 5.40 mg/dL 10/27/2024 12:37 AM EDT [facility] Comment:Free calcium levels vary inversely with pH by approximately 5% for each 0.1 unit of pH change. Assay results have been normalized to pH = 7.40. Serum 10/27/2024 12:1 3 AM EDT 10/27/2024 12:29 AM EDT Narrative [facility] - 10/27/2024 12:37 AM EDT This test has been developed and its performance characteristics determined by [facility] which is certified under the [...] ORDERABLES Final Resu lt Performing Organization Address City/[facility]/ZIP Co de Phone Number [facility] [address] [place] [address], [facility] * Repeat Crossmatch (Recipient Sample) (10/26/2024 4:42 PM EDT) Repeat Cx - Recipient The request and specimen(s) for this test have been received and transported to the [facility] at [address] [place] [address]. The [facility] will report results directly to the client. 10/26/2024 4:49 PM EDT [facility] Whole Blood 10/26/2024 4:42 PM EDT 10/26/2024 4:49 PM EDT Narrative [facility] - 10/26/2024 4:49 PM EDT To be sent to [facility] for Donor UNOS#[id number] cross match with Blair Anderson Sveta Mojica MD LAB BLOOD ORDERABLES Final Resu lt Performing Organization Address City/[facility]/ZIP Co de Phone Number [facility] [address] [facility]. [address] * (ABNORMAL) Fibrinogen (10/26/2024 6:10 AM EDT) Only the most recent of2 resultswithin the time period is included. Fibrinogen 160(L) 218 - 406 mg/dL 10/26/2024 6:41 AM EDT [facility] Plasma 10/26/2024 6:10 AM EDT 10/26/2024 6:26 AM EDT Sveta Mojica MD LAB BLOOD ORDERABLES Final Resu lt Performing Organization Address [facility]/ZIP Co de Phone Number [facility] [address] [facility]. [address] * (ABNORMAL) POC INR (10/26/2024 5:16 AM EDT) Only the most recent of6 resultswithin the time period is included. Prothrombin Time INR, POC 2.4(H) 0.8 - 1.4 10/27/2024 6:51 AM EDT [facility] Comment: Test results may vary using [...] ORDERABLES Final Result Performing Organization Address [facility] Co de Phone Number [facility] [address] [facility]. [address] * POC Lactate (10/26/2024 5:14 AM EDT) Only the most recent of6 resultswithin the time period is included. POC Lactate 1.76 0.50 - 2.20 mmol/L 10/26/2024 5:31 AM EDT [facility] Blood, Arterial 10/26/2024 5 :14 AM EDT 10/26/2024 5:31 AM EDT us Harvey Domínguez III, MD POINT OF CARE TEST ORDERABLES Final Result Performing Organization Address [facility] Co de Phone Number [facility] [address] [place] [facility]. [address] * POC TCO2 (10/26/2024 5:14 AM EDT) Only the most recent of6 resultswithin the time period is included. POC TCO2, Arterial 23 23 - 27 mmol/L 10/26/2024 5:31 AM EDT [facility] Blood, Arterial 10/26/2024 5 :14 AM EDT 10/26/2024 5:31 AM EDT us Harvey Domínguez III, MD POINT OF CARE TEST ORDERABLES Final Result Performing Organization Address City/[facility] Co de Phone Number [facility] [address] [facility]. [address] * POC Sodium (10/26/2024 5:14 AM EDT) Only the most recent of6 resultswithin the time period is included. POC Sodium 138 136 - 146 mmol/L 10/26/2024 5:31 AM EDT [facility] Blood, Arterial 10/26/2024 5 :14 AM EDT 10/26/2024 5:31 AM EDT Harvey Domínguez III, MD POINT OF CARE TEST ORDERABLES Final Result Performing Organization Address City/[facility] Co de Phone Number [facility] [address] * (ABNORMAL) POC Potassium (10/26/2024 5:14 AM EDT) Only the most recent of6 resultswithin the time period is included. POC Potassium 2.8(LL) 3.5 - 5.3 mmol/L 10/26/2024 5:31 AM EDT [facility] Blood, Arterial 10/26/2024 5 :14 AM EDT 10/26/2024 5:31 AM EDT Harvey Domínguez III, MD POINT OF CARE TEST ORDERABLES Final Result Performing Organization Address [facility] Co de Phone Number [facility] [address] [facility]. [address] * (ABNORMAL) POC PO2 (10/26/2024 5:14 AM EDT) Only the most recent of6 resultswithin the time period is included. POC pO2, Arterial 133(H) 80 - 100 mm Hg 10/26/2024 5:31 AM EDT [facility] Blood, Arterial 10/26/2024 5 :14 AM EDT 10/26/2024 5:31 AM EDT Harvey Domínguez III, MD POINT OF CARE TEST ORDERABLES Final Result Performing Organization Address City/[facility] Co de Phone Number [facility] [address] [facility]. [address] * POC PCO2 (10/26/2024 5:14 AM EDT) Only the most recent of6 resultswithin the time period is included. POC pCO2, Arterial 45 35 - 45 mm Hg 10/26/2024 5:31 AM EDT [facility] Blood, Arterial 10/26/2024 5 :14 AM EDT 10/26/2024 5:31 AM EDT us Harvey Domínguez III, MD POINT OF CARE TEST ORDERABLES Final Result Performing Organization Address City/[facility]/ZIP Co de Phone Number [facility] [address] [facility]. [address] * (ABNORMAL) POC O2 SAT (10/26/2024 5:14 AM EDT) Only the most recent of6 resultswithin the time period is included. POC O2 Saturation, Arterial 99(H) 95 - 98 % 10/26/2024 5:31 AM EDT [facility] Blood, Arterial 10/26/2024 5 :14 AM EDT 10/26/2024 5:31 AM EDT Harvey Domínguez III, MD POINT OF CARE TEST ORDERABLES Final Result Performing Organization Address City/[facility]/ZIP Co de Phone Number [facility] [address] [facility]. [address] * POC HCO3 (10/26/2024 5:14 AM EDT) Only the most recent of6 resultswithin the time period is included. POC HCO3, Arterial 22 22 - 26 mmol/L 10/26/2024 5:31 AM EDT [facility] Blood, Arterial 10/26/2024 5 :14 AM EDT 10/26/2024 5:31 AM EDT Harvey Domínguez III, MD POINT OF CARE TEST ORDERABLES Final Result Performing Organization Address City/[facility]/ZIP Co de Phone Number [facility] [address] [facility]. [address] * POC Chloride (10/26/2024 5:14 AM EDT) Only the most recent of6 resultswithin the time period is included. POC Chloride 104 98 - 110 mmol/L 10/26/2024 5:31 AM EDT [facility] Blood, Arterial 10/26/2024 5 :14 AM EDT 10/26/2024 5:31 AM EDT us Harvey Domínguez III, MD POINT OF CARE TEST ORDERABLES Final Result [facility] [address] * (ABNORMAL) POC Base Excess (10/26/2024 5:14 AM EDT) Only the most recent of6 resultswithin the time period is included. POC Base Excess, Arterial -5(L) -2 - 3 mmol/L 10/26/2024 5:31 AM EDT [facility] Blood, Arterial 10/26/2024 5 :14 AM EDT 10/26/2024 5:31 AM EDT Harvey Domínguez III, MD POINT OF CARE TEST ORDERABLES Final Result [facility] [address] [facility]. [address] * POC Anion Gap (10/26/2024 5:14 AM EDT) Only the most recent of6 resultswithin the time period is included. POC Anion Gap, Arterial 12 3 - 16 mmol/L 10/26/2024 5:31 AM EDT [facility] Blood, Arterial 10/26/2024 5 :14 AM EDT 10/26/2024 5:31 AM EDT us Harvey Domínguez III, MD POINT OF CARE TEST ORDERABLES Final Result [facility] [address] [facility]. [address] * POC Sample Type (10/26/2024 5:14 AM EDT) Only the most recent of6 resultswithin the time period is included. POC Sample Type Arterial 10/26/2024 5:31 AM EDT [facility] Blood, Arterial 10/26/2024 5 :14 AM EDT 10/26/2024 5:31 AM EDT Harvey Domínguez III, MD POINT OF CARE TEST ORDERABLES Final Result Performing Organization Address City/[facility] Co de Phone Number [facility] [address] [place] [address]. [address] * (ABNORMAL) POC pH (10/26/2024 5:14 AM EDT) Only the most recent of6 resultswithin the time period is included. POC pH, Arterial 7.29(L) 7.35 - 7.45 10/26/2024 5:31 AM EDT [facility] Blood, Arterial 10/26/2024 5 :14 AM EDT 10/26/2024 5:31 AM EDT us Harvey Domínguez III, MD POINT OF CARE TEST ORDERABLES Final Result Performing Organization Address [facility] Co de Phone Number [facility] [address] [place] [address]. [address] * (ABNORMAL) POC hematocrit (10/26/2024 5:14 AM EDT) Only the most recent of6 resultswithin the time period is included. POC Hematocrit 28.0(L) 40 - 52 % 10/26/2024 5:31 AM EDT [facility] Blood, Arterial 10/26/2024 5 :14 AM EDT 10/26/2024 5:31 AM EDT us Harvey Domínguez III, MD POINT OF CARE TEST ORDERABLES Final Result Performing Organization Address City/[facility] Co de Phone Number [facility] [address] [place] [address]. [address] * (ABNORMAL) POC Ionized Calcium (10/26/2024 5:14 AM EDT) Only the most recent of6 resultswithin the time period is included. POC Ionized Calcium 5.50(H) 4.50 - 5.30 mg/dL 10/26/2024 5:31 AM EDT [facility] Blood, Arterial 10/26/2024 5 :14 AM EDT 10/26/2024 5:31 AM EDT us Harvey Domínguez III, MD POINT OF CARE TEST ORDERABLES Final Result Performing Organization Address City/[facility]/ZIP Co de Phone Number [facility] [address] [place] [address]. [address] * (ABNORMAL) POC Glucose (10/26/2024 5:14 AM EDT) Only the most recent of6 resultswithin the time period is included. POC Glucose, Arterial 183(H) 70 - 100 mg/dL 10/26/2024 5:31 AM EDT [facility] Blood, Arterial 10/26/2024 5 :14 AM EDT 10/26/2024 5:31 AM EDT us Harvey Domínguez III, MD POINT OF CARE TEST ORDERABLES Final Result Performing Organization Address City/[facility]/ZIP Co de Phone Number [facility] [address] [place] [address]. [address] * (ABNORMAL) POC Hemoglobin (10/26/2024 5:14 AM EDT) Only the most recent of6 resultswithin the time period is included. POC Hemoglobin 9.5(L) 14.0 - 18.0 g/dL 10/26/2024 5:31 AM EDT [facility] Blood, Arterial 10/26/2024 5 :14 AM EDT 10/26/2024 5:31 AM EDT us Harvey Domínguez III, MD POINT OF CARE TEST ORDERABLES Final Result Performing Organization Address [facility] Co de Phone Number [facility] [address] * (ABNORMAL) TEG-Global With Lysis (Baseline TEG with LY30, Will NOT Show Heparin Effect) (53:31 AM EDT) [facility] Signature Citrated Kaolin Reaction Time (TEGLYSIS) 6.8 4.6 - 9.1 minutes 10/26/2024 5:02 AM EDT [facility] Citrated Rapid Teg Maximum Amplitude (TEGLYSIS) <40.0(L) 52.0 - 70.0 mm 10/26/2024 5:02 AM EDT [facility] Citrated Functional Fibrinogen Maximum Amplitude (TEGLYSIS) <4.0(L) 15.0 - 32.0 mm 10/26/2024 5:02 AM EDT [facility] Citrated Kaolin Percent Lysis (TEGLYSIS) 1.4 0.0 - 2.6 % 10/26/2024 5:02 AM EDT [facility] Whole Blood (Citrate) 10/26/2024 3:31 AM EDT 10/26/2024 3:40 AM EDT us Eber Quinones MD LAB BLOOD ORDERABLES Fin al Result Performing Organization Address [facility] Co de Phone Number [facility] [address] * CENTRAL LINE SINGLE LUMEN PERFORMABLE (10/25/2024 11:13 PM EDT) Narrative Ben Blake MD - 10/25/2024 11:13 PM EDT Ben Blake MD 10/26/2024 7:45 PM [place] Emily Cath Date/Time: 10/25/2024 11:13 PM Performed [...] [facility] Serum 10/25/2024 10:1 7 PM EDT 10/25/2024 10:17 PM EDT Narrative [facility] - 10/25/2024 11:13 PM EDT HAV antibodies not detected Aysha Gill MD LAB BLOOD ORDERABLES F inal Result [facility] [address] [place] [address], [facility] * Iron Studies (Iron + TIBC) (10/25/2024 10:17 PM EDT) Only the most recent of2 resultswithin the time period is included. Iron 128 50 - 212 ug/dL 10/25/2024 10:44 PM EDT [facility] % Iron Saturation SEE COMMENT 15.0 - 55.0 % 10/25/2024 10:44 PM EDT [facility] Comment:Unable to calculate result because contributing result outside reportable range.. TIBC SEE COMMENT 261 - 462 ug/dL 10/25/2024 10:44 PM EDT [facility] Comment:Unable to calculate result because contributing result outside reportable range.. Serum 10/25/2024 10:1 7 PM EDT 10/25/2024 10:17 PM EDT Aysha Gill MD LAB BLOOD ORDERABLES F inal Result Performing Organization Address City/[facility]/ZIP Co de Phone Number [facility] [address] [facility]. [address] * Hepatitis B Core Antibody (10/25/2024 10:17 PM EDT) Pathologist [facility] Hep B Core Total Ab Nonreactive Nonreactive 10/25/2024 11:07 PM EDT [facility] Comment:Health Department no tified in accordance with reportable infectious disease guidelines. Serum 10/25/2024 10:1 7 PM EDT 10/25/2024 10:17 PM EDT Narrative [facility] - 10/25/2024 11:07 PM EDT A nonreactive final interpretation indicates that anti-HBc antibodies were not detected in the sample; it is possible that the individual is not infected with HBV. Aysha Gill MD LAB BLOOD ORDERABLES F inal Result Performing Organization Address City/[facility]/ZIP Co de Phone Number [facility] [address] * Hepatitis C Antibody (10/25/2024 10:17 PM EDT) Only the most recent of3 resultswithin the time period is included. Pathologist [facility] HCV Ab Nonreactive Nonreactive 10/25/2024 11:16 PM EDT [facility] Comment:Health Department no tified in accordance with reportable infectious disease guidelines. Serum 10/25/2024 10:1 7 PM EDT 10/25/2024 10:17 PM EDT [facility] - 10/25/2024 11:16 PM EDT Antibodies to HCV not detected; does not exclude the possibility of exposure to HCV. Aysha Gill MD LAB BLOOD ORDERABLES F inal Result [facility] [address] [facility]. [address] * HIV 1+2 Antibody/Antigen with Reflex (10/25/2024 10:17 PM EDT) Only the most recent of2 resultswithin the time period is included. HIV 1+2 AB/AGN Nonreactive Nonreactive 10/25/2024 11:03 PM EDT [facility] Serum 10/25/2024 10:1 7 PM EDT 10/25/2024 10:16 PM EDT [facility] - 10/25/2024 11:03 PM EDT \HIVRNR us Aysha Gill MD LAB BLOOD ORDERABLES F inal Result Performing Organization Address City/[facility]/ZIP Co de Phone Number [facility] [address] [facility]. [address] * (ABNORMAL) Hepatitis B Surface Antibody, Quantitati (10/25/2024 10:17 PM EDT) Only the most recent of3 resultswithin the time period is included. HBSAB NUMBER 10.70(H) 0.00 - 9.99 mIU/mL 10/25/2024 11:52 PM EDT [facility] Hep B S Ab Equivocal (A) Nonreactive 10/25/2024 11:52 PM EDT [facility] Serum 10/25/2024 10:1 7 PM EDT 10/25/2024 10:17 PM EDT Aysha Gill MD LAB BLOOD ORDERABLES F inal Result Performing Organization Address City/[facility] Co de Phone Number [facility] [address] [facility]. [address] * Hepatitis B surface antigen (10/25/2024 10:17 PM EDT) Only the most recent of3 resultswithin the time period is included. Hep B Surface Ag Nonreactive Nonreactive 10/25/2024 11:12 PM EDT [facility] Comment:Health Department no tified in accordance with reportable infectious disease guidelines. Serum 10/25/2024 10:1 7 PM EDT 10/25/2024 10:17 PM EDT Narrative [facility] - 10/25/2024 11:12 PM EDT Specimen is considered negative for HBsAg. Aysha Gill MD LAB BLOOD ORDERABLES F inal Result Performing Organization Address [facility] Co de Phone Number [facility] [address] [facility] * (ABNORMAL) APTT, NO ANTICOAGULANT (10/25/2024 10:17 PM EDT) aPTT 41.7(H) 25.5 - 35.0 seconds 10/25/2024 10:36 PM EDT [facility] Plasma 10/25/2024 10:1 7 PM EDT 10/25/2024 10:17 PM EDT Aysha Gill MD LAB BLOOD ORDERABLES F inal Result [facility] [address] [facility]. [address] * PTH (10/25/2024 10:17 PM EDT) PTH 36.0 12.0 - 88.0 pg/mL 10/25/2024 11:01 PM EDT [facility] Serum 10/25/2024 10:1 7 PM EDT 10/25/2024 10:17 PM EDT us Aysah Gill MD LAB BLOOD ORDERABLES F inal Result Performing Organization Address City/[facility]/ZIP Co de Phone Number [facility] [address] [facility]. [address] * (ABNORMAL) Ferritin (10/25/2024 10:17 PM EDT) Only the most recent of2 resultswithin the time period is included. Ferritin 623.2(H) 23.9 - 336.2 ng/mL 10/25/2024 11:02 PM EDT [facility] Serum 10/25/2024 10:1 7 PM EDT 10/25/2024 10:17 PM EDT Aysha Gill MD LAB BLOOD ORDERABLES F inal Result Performing Organization Address [facility] de Phone Number [facility] [address] [facility] * (ABNORMAL) Venous Blood Gas, Line/Syringe (10/25/2024 10:00 PM EDT) Only the most recent of3 resultswithin the time period is included. PH-Line Draw 7.38 7.32 - 7.42 10/25/2024 10:08 PM EDT [facility] PCO2-Line Draw 33(L) 41 - 51 mm Hg 10/25/2024 10:08 PM EDT [facility] PO2-Line Draw 33 25 - 40 mm Hg 10/25/2024 10:08 PM EDT [facility] HCO3-Line Draw 20(L) 24 - 28 mmol/L 10/25/2024 10:08 PM EDT [facility] CO2 Content-Line Draw 21(L) 25 - 29 mmol/L 10/25/2024 10:08 PM EDT [facility] Base Excess-Line Draw -5.0(L) -2.0 - 3.0 mmol/L 10/25/2024 10:08 PM EDT [facility] %HBO2-Line Draw 53.8 40.0 - 70.0 % 10/25/2024 10:08 PM EDT [facility] Carboxyhgb-Ludivina e Draw 1.9 % 10/25/2024 10:08 PM EDT [facility] Comment: CARBOXYHEMOGLOBIN (CO) REFERENCE RANGES: Non-Smokers: <2 % Smokers: <8 % TOXIC: >20 % Methemoglobin- Line Draw 0.2 0.0 - 1.5 % 10/25/2024 10:08 PM EDT [facility] Reduced Hemoglobin-Ludivina e Draw 44.1(H) 0.0 - 5.0 % 10/25/2024 10:08 PM EDT [facility] Venous, Line Draw 10/25/2024 10:00 PM EDT 10/25/2024 10:04 PM EDT Aysha Gill MD LAB BLOOD ORDERABLES F inal Result Performing Organization Address [facility] Co de Phone Number [facility] [address] [place] [address] * Donor Specific Antibody (DSA) (10/25/2024 10:00 PM EDT) AntiDonor Antibodies The request and specimen(s) for this test have been received and transported to the [facility] at [address] [place] [address]. The [facility] will report results directly to the client. 10/25/2024 10:20 PM EDT [facility] Comment:Testing performed by [facility], [facility], [address] [place] [address]. The [facility] report has been forwarded to the appropriate ordering location. Please refer to this report for patient results. Serum 10/25/2024 10:0 0 PM EDT 10/25/2024 10:20 PM EDT Aysha Gill MD LAB BLOOD ORDERABLES F inal Result [facility] [address] * Hepatitis C RNA, Quant Reflex to Genotyp (10/25/2024 8:18 PM EDT) Pathologist [facility] Units Not Detected IU/mL 10/27/2024 11:03 AM EDT [facility] Comment:Test methodology for HCV RNA quantification [...] [facility] Comment:HCV RNA not detected . Plasma 10/25/2024 8:18 PM EDT 10/25/2024 10:27 PM EDT Aysha Gill MD LAB BLOOD ORDERABLES F inal Result [facility] [address] [place] [address]. [address] * Toxoplasma gondii antibody, IgG (10/25/2024 8:18 PM EDT) Only the most recent of2 resultswithin the time period is included. [facility] Toxoplasma Gondii IgG <3.0 0.0 - 7.1 IU/mL 10/27/2024 7:55 AM EDT [facility] Comment: Negative <7.2 Equivocal 7.2 - 8.7 Positive >8.7 Serum 10/25/2024 8:18 PM EDT 10/27/2024 8:06 AM EDT Narrative [facility] - 10/27/2024 8:06 AM EDT PERFORMED AT: [facility] [id number] DRYWALL HANGER HELPER: Bassam Khalil, PhD PHONE: [phone] Aysha Gill MD LAB BLOOD ORDERABLES F inal Result Performing Organization Address City/[facility]/ZIP Co de Phone Number [facility] [address] [facility]. [address] * ABO/Rh (10/25/2024 7:46 PM EDT) Only the most recent of5 resultswithin the time period is included. ABO Grouping O 10/25/2024 10:23 PM EDT [facility] Rh Type Positive 10/25/2024 10:23 PM EDT [facility] Blood 10/25/2024 7:46 PM EDT 10/25/2024 9:54 PM EDT Ben Blake MD BLOOD BANK TEST ORDERABLES Fi nal Result Performing Organization Address [facility] Co de Phone Number [facility] [address] [facility]. [address] * Antibody Screen (10/25/2024 7:46 PM EDT) Only the most recent of3 resultswithin the time period is included. Antibody Screen Negative 10/25/2024 10:41 PM EDT [facility] Blood 10/25/2024 7:46 PM EDT 10/25/2024 9:54 PM EDT Narrative [facility] - 10/25/2024 10:44 PM EDT Testing performed by [facility] Transfusion Service Ben Blake MD BLOOD BANK TEST ORDERABLES Fi nal Result Performing Organization Address [facility] Co de Phone Number [facility] [address] [facility]. [address] * Hox - HLA Antibody-Detailed Report (10/22/2024 12:32 PM EDT) 10/22/2024 12:3 2 PM EDT Abdulkadir Gaspar MD LAB BLOOD ORDERABLES Final Resul t Performing Organization Address City/[facility]/ZIP Co de Phone Number [facility] [address] [place] [address] * HOX - HLA CROSSMATCH + Detailed Antibody (10/20/2024 5:04 PM EDT) 10/20/2024 5:04 PM EDT us Abdulkadir Gaspar MD LAB BLOOD ORDERABLES Final Resul t Performing Organization Address [facility] Co de Phone Number [facility] [address] [place] [address] * Hox - ABO Typing Report (10/20/2024 5:03 PM EDT) 10/20/2024 5:03 PM EDT Abdulkadir Gaspar MD LAB BLOOD ORDERABLES Final Resul t Performing Organization Address [facility] Co de Phone Number [facility] [address] [place] [address] * X-ray Comparison Images (10/20/2024 9:10 AM EDT) Only the most recent of7 resultswithin the time period is included. Narrative EXTERNAL - 10/20/2024 9:10 AM EDT Images associated with this accession number were presented to us for comparison to an examination performed here. Provider Not In System IMG DIAGNOSTIC IMAGING OR DERABLES Final Result Performing Organization Address [facility] Co de Phone Number EXTERNAL * PRA-HLA Ab Screen (Cytotoxic) (10/15/2024 6:08 AM EDT) [facility] The request and specimen(s) for this test have been received and transported to the [facility] at [address] [place] [address]. The [facility] will report results directly to the client. 10/15/2024 6:42 AM EDT [facility]ALTH LAB Comment:The request and spec imen(s) for this test have been received and transported to the [facility] at [address] [place] [address]. The [facility] will report results directly to the client. Serum 10/15/2024 6:08 AM EDT 10/15/2024 6:42 AM EDT us Cosmo Pacheco MD LAB BLOOD ORDERABLES Final Resul t [facility] [address] [facility]. [address] * LEFT HEART CATH (10/14/2024 2:09 PM EDT) 10/14/2024 11:4 7 AM EDT Narrative [facility] - 10/14/2024 9:27 PM EDT *[facility]* Cardiac Communication Clerk [address] [address] CATHETERIZATION LAB STUDY Patient: Blair Anderson Age: [...] manner. 3. Right radial artery access. A 2Vw21xe Glidesheath - Slender - .021 sheath was [...] + !LV pressure s/d, ed !112, 22, dP/qx=5142vz Hg/s! + + + !Aortic pressure s/d (m)!106/58 (75) ! + + + ATTESTATION: Dr. Matta was present for the entire procedure. Dr. Jay Quan was the initial author of this report. Prepared and electronically signed by Irving Matta MD [id number] Procedure Note Irving Matta MD - 10/14/2024 *[facility]* Cardiac Communication Clerk [address] [place] [address] CATHETERIZATION LAB STUDY Patient: Blair Anderson Age: [...] manner. 3. Right radial artery access. A 6Ug47se Glidesheath - Slender - .021sheath was advanced [...] complications. Contrast: Omnipaque 350 25ml (total dose). Fturswaef344 125ml (wasted). Radiation: Fluoroscopy time: 15min. Total [...] + !LV pressure s/d, ed !112, 22, dP/hr=3941up Hg/s! + + + !Aortic pressure s/d (m)!106/58 (75) ! + + + ATTESTATION: Dr. Matta was present for the entire procedure. Dr. Jay Quan wasthe initial author of this report. Prepared and electronically signed by Irving Matta MD [id number]:50 [place] [id number] Final Result [facility] * Cardiac Cath Documents [...] mL of GADOBUTROL 1 MMOL/ML INTRAVENOUS SYRINGE ([facility]) administered intravenously COMPARISON: CT 09/03/2024. [...] mL of GADOBUTROL 1 MMOL/ML INTRAVENOUS SYRINGE ([facility])administered intravenously COMPARISON: CT 09/03/2024. Ultrasound [...] PM EDT us Kush Posada MD, PhD [facility] MRI ORDERABLES Fi nal Result * (ABNORMAL) Ammonia (10/13/2024 5:35 AM EDT) Only the most recent of2 resultswithin the time period is included. Ammonia 203(HH) 27 - 90 ug/dL 10/13/2024 7:16 AM EDT [facility] Comment: HEMOLYSIS EVIDENT. RESULTS MAY BE INFLUENCED. Critical Result [id number] Called to and read back by: KEY MELO RN at: 10/13/2024 07:15:55 by:NISREEN Plasma 10/13/2024 5:35 AM EDT 10/13/2024 6:19 AM EDT us Ellis Mays DO LAB BLOOD ORDERABLES Final Resul t Performing Organization Address [facility] Co de Phone Number [facility] [address] [facility]. [address] * Vancomycin, random (10/11/2024 3:02 AM EDT) Only the most recent of5 resultswithin the time period is included. Vancomycin Random 13.4 ug/mL 10/11/2024 3:37 AM EDT [facility] Comment:Reference range not established for this test. Plasma 10/11/2024 3:02 AM EDT 10/11/2024 3:08 AM EDT us Jodi FreireD LAB BLOOD ORDERABLES Final Result Performing Organization Address [facility] Co de Phone Number [facility] [address] [facility]. [address] * IR Paracentesis incl imaging guide [...] diagnostic and therapeutic paracentesis. Bakari Wahl CNP, Medical Insurance Clerk Procedure and Findings: The procedure was performed [...] for diagnostic andtherapeutic paracentesis. Bakari Wahl CNP, Medical Insurance Clerk Procedure and Findings: The procedure was performed [...] Using ultrasound guidance, a 10 cm, 5-F [employer] Cent[employer] catheter was placedinto the right lower [...] Organisms Seen; [facility] Culture Result No Growth After 5 Days [facility] Fluid ABDOMEN / Unknown 10/10/2024 1:51 PM EDT 10/10/2024 3:56 PM EDT us Gerri Peterson MD MICROBIOLOGY - GENERAL ORDERABL ES Final Result Performing Organization Address [facility] Co de Phone Number [facility] [address] [facility]. [address] * (ABNORMAL) Body fluid cell count (10/10/2024 1:51 PM EDT) Color, Fluid Yellow(A) Colorless, Pale Yellow 10/10/2024 5:29 PM EDT [facility] Clarity, Fluid Clear 10/10/2024 5:29 PM EDT [facility] Neutrophil %, Fluid 9 % 10/10/2024 5:29 PM EDT [facility] Lymphocytes %, Fluid 13 % 10/10/2024 5:29 PM EDT [facility] Mesothelial %, Fluid 6 % 10/10/2024 5:29 PM EDT [facility] Macrophage %, Fluid 72 % 10/10/2024 5:29 PM EDT [facility] RBC, Fluid 2,662 /uL 10/10/2024 4:41 PM EDT [facility] Total Nucleated Cells, Fluid 89 /uL 10/10/2024 4:41 PM EDT [facility] Comment:Total Nucleated Cell s represent WBCs and other nucleated cells in the fluid such as lining cells. Ascitic Fluid ABDOMEN / Unknown 1:51 PM EDT 10/10/2024 3:56 PM EDT Gerri Peterson MD BODY FLUIDS AND STOOLS ORDERABL ES Final Result Performing Organization Address [facility] Co de Phone Number [facility] [address] [facility]. [address] * UPPER GI ENDOSCOPY (10/10/2024 11:48 AM EDT) 10/10/2024 11:4 8 AM EDT Narrative [facility] - 10/10/2024 12:34 PM EDT [id number] Procedure Date: 10/10/2024 11:48 AM Patient Name: Blair Anderson Date of : 1985 Admit Type: Inpatient Age: 39 Gender: Male Note Status: Finalized Attending MD: Lino Soto MD, [id number] Procedure: Upper GI endoscopy Indications: Gastroesopahgeal variceal [...] verified by the physician, the nurse, the pilot boat deckhand and the biofuels production technician in the pre-procedure area in the [...] to hypotension Procedure Code(s): --- Professional --- 22190, GC, Esophagogastroduodenoscopy, flexible, transoral; diagnostic, including collection of specimen(s) by brushing or washing, when performed (separate procedure) Diagnosis Code(s): --- Professional --- I85.00, Esophageal varices without bleeding K76.6, Portal hypertension K31.89, Other diseases of stomach and duodenum CPT copyright 2022 [employer]. All rights reserved. The codes documented in this report are preliminary and upon paste up copy camera operator review may be revised to meet [...] 12:10:16 PM Scope Out: 12:17:[address] [place] [address], [address] us Provider Not In System PROCEDURE/MINOR SURGICAL ORDERABLES Final Result [facility] * ECHO STRESS W/ CONTRAST (10/09/2024 4:37 PM EDT) Anatomical Region Laterality Modality Chest Ultrasound 10/09/2024 2:40 PM EDT Narrative 10/09/2024 6:45 PM EDT * [facility]* [address] [place] [address] Stress Echocardiogram Patient: Blair Anderson Room: 8142 Height: 76in MR Number: [id number] : 1985 Weight: 262lb Account: [id number] Gender: M BP: 125 / 77 Study Date: 10/09/2024 Age: 39 BSA: 2.48m^2 Referring physician: Gerri Peterson Interpreting physician: Tonya Henriquez MD FELLOW Lisa Jha MD PERFORMING Tonya Henriquez MD WHEEL TRUING MACHINE TENDER [employer] ORDERING Gerri Peterson REFERRING [...] was augmented by the addition of hand physician assistant surgery and leg lifts. The infusion was terminated [...] at baseline or with provocation, shows no rcesb-jt-ickt atrial level shunt. - Pulmonary arteries: Systolic [...] at baseline or with provocation, shows no ajcju-te-banq atrial level shunt. Pulmonary artery: - Systolic [...] at baseline or with provocation, shows no kenkr-ym-qqhp atrial level shunt. Pericardium: - There is [...] peak heart rate and blood pressure was 34022vy Hg/min. Stress testing did not produce any [...] Reviewed and confirmed by Tonya Henriquez MD [id number]:20 Procedure Note Tonya Henriquez MD - 10/09/2024 * [facility]* [address] [place], [place] [address] Stress Echocardiogram Patient: Blair Anderson Room: 8142 Height: 76in MR Number: [id number] : 1985 Weight: 262lb Account: [id number] Gender: M BP: 125 / 77 Study Date: 10/09/2024 Age: 39 BSA: 2.48m^2 Referring physician: Gerri Peterson Interpreting physician: Tonya Henriquez MD FELLOW Lisa Jha MD PERFORMING Tonya Henriquez MD WHEEL TRUING MACHINE TENDER [employer] ORDERING Gerri Peterson REFERRING Gerri Peterson Sharice N ADMITTING Gómez Blanchard Procedure:STRESS ECHO - PHARMACOLOGIC Order: Indications: Pre-Operative Clearance (Z01.818). PMH: EtOH Use Disorder. Risk factors: Hypertension. Dyslipidemia. Study data: Height: 76in. 193cm. Weight: 262lb. 118.8kg. The previousstudy was not available, so comparison was made to the report of 07/15/2024. Study status: Routine. Procedure: [facility] A baseline ECG was recorded. Intravenous [...] was augmented by the addition of hand physician assistant surgery and leg lifts. The infusion was terminated [...] at baseline or with provocation, shows no wxjhu-gk-yaei atrial level shunt. - Pulmonary arteries: Systolic [...] study at baseline or with provocation, showsno xupfe-cu-hnqa atrial level shunt. Pulmonary artery: - Systolic [...] at baseline or with provocation, shows no rctzn-ji-pove atrial level shunt. Pericardium: - There is [...] heart rate). The maximal predicted heart rate [id number]. The target heart rate was 152bpm. The target heart rate was achieved.The heart rate response to stress is normal. There is a normal resting blood pressure with an appropriate response to stress. The rate-pressureproduct for the peak heart rate and blood pressure was 96810mi Hg/min. Stress testing did not produce any [...] Reviewed and confirmed by Tonya Henriquez MD [id number]:20 us Gerri Peterson MD CV ECHO ORDERABLES Final Result * Renal Tx Recipient (10/09/2024 4:59 AM EDT) Renal Transplant Recipient The request and specimen(s) for this test have been received and transported to the [facility] at [address] [place] [address]. The [facility] will report results directly to the client. 10/09/2024 7:26 AM EDT [facility] Blood 10/09/2024 4:59 AM EDT 10/09/2024 7:26 AM EDT us Aaron Gonzalez MD LAB BLOOD ORDERABLES Final Resu lt [facility] [address] [place] [address], [facility] * (ABNORMAL) MMR(IgG) Panel (Measles, Mumps, Rubella) (10/08/2024 10:25 AM EDT) Only the most recent of2 resultswithin the time period is included. Mumps IgG Positive 10/08/2024 11:39 AM EDT [facility] MUMPS IGG NUM 99.00(H) 0.0 - 8.9 U/mL 10/08/2024 11:39 AM EDT [facility] Rubella IgG Scr Positive 10/08/2024 11:40 AM EDT [facility] RUB NUM 4.15(H) 0.00 - 0.89 INDEX 10/08/2024 11:40 AM EDT [facility] Rubeola Ab, IgG Positive 10/08/2024 11:39 AM EDT [facility] RUB IGG NUM 273.00(H) 0.00 - 13.40 U/mL 10/08/2024 11:39 AM EDT [facility] Serum 10/08/2024 10:2 5 AM EDT 10/08/2024 10:49 AM EDT Narrative [facility] - 10/08/2024 11:40 AM EDT Presence [...] Resu lt [facility] [address] * QuantiFERON TB2 Ag (10/08/2024 10:25 AM EDT) QuantiFERON TB2 Ag Value 0.07 10/10/2024 10:41 AM EDT [facility] Plasma 10/08/2024 10:2 5 AM EDT 10/08/2024 11:05 AM EDT Gerri Peterson MD LAB BLOOD ORDERABLES Final Resu lt [facility] [address] [facility]. [address] * QuantiFERON TB1 Ag (10/08/2024 10:25 AM EDT) QuantiFERON TB1 Ag Value 0.06 10/10/2024 10:41 AM EDT [facility] Plasma 10/08/2024 10:2 5 AM EDT 10/08/2024 11:05 AM EDT Gerri Peterson MD LAB BLOOD ORDERABLES Final Resu lt [facility] [address] [facility]. [address] * QuantiFERON Nil (10/08/2024 10:25 AM EDT) QuantiFERON Nil 0.06 10:41 AM EDT [facility] Plasma 10/08/2024 10:2 5 AM EDT 10/08/2024 11:05 AM EDT Gerri Peterson MD LAB BLOOD ORDERABLES Final Resu lt [facility] [address] [facility]. [address] * QuantiFERON Mitogen (10/08/2024 10:25 AM EDT) QuantiFERON Interpretation Negative Negative 10/10/2024 10:41 AM EDT [facility] Comment:Negative result geovanny cates M. tuberculosis [...] [facility] Plasma 10/08/2024 10:2 5 AM EDT 10/08/2024 11:05 AM EDT Narrative [facility] - 10/10/2024 10:41 AM EDT [...] Final Resu lt Performing Organization Address [facility] Co de Phone Number [facility] [address] [facility]. [address] * (ABNORMAL) Vitamin D 25 Hydroxy (10/08/2024 10:25 AM EDT) Vit D, 25-Hydroxy 7.1(L) 30.0 - 100.0 ng/mL 10/08/2024 11:36 AM EDT [facility] Comment: Vitamin D deficiency has been defined by the [place] [employer] (IOM) and an Endocrine Society [...] Final Resu lt Performing Organization Address [facility]/ZIP Co de Phone Number [facility] [address] * Reticulocyte Count, Auto (10/08/2024 7:41 AM EDT) Retic Ct Pct 1.35 0.50 - 2.00 % 10/08/2024 9:12 AM EDT [facility] Retic Ct Abs 26,190 25,000 - 90,000 /uL 10/08/2024 9:14 AM EDT [facility] Immature Retic Fract 0.37 0.09 - 0.56 10/08/2024 9:12 AM EDT [facility] Whole Blood 10/08/2024 7:41 AM EDT 10/08/2024 8:51 AM EDT Result [facility] Gómez Blanchard MD LAB BLOOD ORDERABLES Final Res ult Performing Organization Address [facility] Co de Phone Number [facility] [address] [place] [address] * (ABNORMAL) Haptoglobin (10/08/2024 7:41 AM EDT) Haptoglobin <30(L) 44 - 215 mg/dL 10/08/2024 8:53 AM EDT [facility] Serum 10/08/2024 7:41 AM EDT 10/08/2024 7:51 AM EDT Result [facility] Kush Posada MD, PhD LAB BLOOD ORDERABLES Final Result Performing Organization Address City/[facility] Co de Phone Number [facility] [address] [place] [address]. [address] * (ABNORMAL) Lactate dehydrogenase (10/08/2024 5:36 AM EDT) LD 102(L) 110 - 270 U/L 10/08/2024 8:20 AM EDT [facility] Plasma 10/08/2024 5:36 AM EDT 10/08/2024 7:58 AM EDT Gómez Blanchard MD LAB BLOOD ORDERABLES Final Res ult [facility] [address] * Enteric Pathogen Panel (10/07/2024 10:50 PM EDT) Campylobacter Group (C. ecoli, C. jejuni, C. trino) Not Detected Not Detected 10/08/2024 4:40 AM EDT [facility] Salmonella species Not Detected Not Detected 10/08/2024 4:40 AM EDT [facility] Shigella species Not Detected Not Detected 10/08/2024 4:40 AM EDT [facility] Vibrio Group (Vibrio cholerae, Vibrio parahaemolyticus) Not Detected Not Detected 10/08/2024 4:40 AM EDT [facility] Yersinia enterocolitica Not Detected Not Detected 10/08/2024 4:40 AM EDT [facility] Shiga toxin 1 Not Detected Not Detected 10/08/2024 4:40 AM EDT [facility] Shiga toxin 2 Not Detected Not Detected 10/08/2024 4:40 AM EDT [facility] Norovirus Not Detected Not Detected 10/08/2024 4:40 AM EDT [facility] Rotavirus Not Detected Not Detected 10/08/2024 4:40 AM EDT [facility] Comment: The Enteric Pathogen Panel is [...] S Final Result Performing Organization Address [facility]/ZIP Co de Phone Number [facility] [address] [address] * Urine Drug Confirmation (10/07/2024 10:50 PM EDT) Only the most recent of2 resultswithin the time period is included. BARBITURATES NOT PRESENT 10/09/2024 1:33 PM EDT [facility] BENZODIAZEPINES PRESENT 1:33 PM EDT [facility] Nordiazepam 3 ng/mL 10/09/2024 1:33 PM EDT HEALTH LAB Temazepam 6 ng/mL 10/09/2024 1:33 PM EDT [facility] CANNABINOIDS NOT PRESENT 10/09/2024 1:33 PM EDT [facility] RESEARCH AND DEVELOPMENT MANAGER STIMULANTS NOT PRESENT 1:33 PM EDT [facility] OPIOID ANALGESICS PRESENT 025 1:33 PM EDT [facility] Oxycodone 300 ng/mL 10/09/2024 1:33 PM EDT [facility] Oxymorphone 32 ng/mL 10/09/2024 1:33 PM EDT [facility] Tramadol >1000 ng/mL 10/09/2024 1:33 PM EDT [facility] OPIOID ANTAGONISTS NOT PRESENT 10/09 1:33 PM EDT [facility] SEDATIVES/MUSCLE RELAXANTS NOT PRESENT 10/09/2024 1:33 PM EDT [facility] TRICYCLIC ANTIDEPRESSANTS NOT PRESENT 10/09/2024 1:33 PM EDT [facility] Urine 10/07/2024 10:5 0 PM EDT 10/08/2024 3:00 AM EDT Gerri Peterson MD URINE ORDERABLES Final Result [facility] [address] * Giardia Cryptosporidium Antigens (10/07/2024 10:50 PM EDT) Cryptosporidium Ag Negative Negative 2024 7:59 AM EDT [facility] Giardia Ag Negative Negative 10/08/2024 7:59 AM EDT HEALTH [facility] Comment: Detection of Giardia and Cryptosporidium antigen is more sensitive and specific than microscopy. Because antigens are shed continuously, repeat testing is rarely warranted. Feces 10/07/2024 10:5 0 PM EDT 10/08/2024 1:53 AM EDT Comment:F Bisi Hernandez DO MICROBIOLOGY - GENERAL ORDERABLE S Final Result [facility] [address] [place] [facility] [place] [address], [facility] * Comprehensive Drug Screen (10/07/2024 10:50 PM EDT) Only the most recent of2 resultswithin the time period is included. Creatinine, Ur CANCELED mg/dL 10/08/2024 7:09 AM EDT [facility] Comment:The released value 8 7.30 was canceled by YAQUELIN on 10/08/2024 07:09 BARBITURATES CANCELED [facility] Butalbital CANCELED [facility] Phenobarbital [facility]CELED [facility] Secobarbital CANCELED [facility] BENZODIAZEPINES CANCELED [facility] Alprazolam CANCELED [facility] Clonazepam CANCELED [facility] Diazepam CANCELED [facility] Alpha-Hydroxyalprazo mcknight CANCELED [facility] Lorazepam CANCELED [facility] Midazolam CANCELED [facility] Nordiazepam [facility]CELED [facility] Oxazepam CANCELED [facility] Temazepam CANCELED [facility] CANNABINOIDS CANCELED [facility] THC-COOH CANCELED [facility] RESEARCH AND DEVELOPMENT MANAGER STIMULANTS CANCELED [facility] Cocaine Metabolite(benzoylec gonine) CANCELED [facility] Amphetamine [facility]ELED [facility] Methamphetamine [facility]ED [facility] MDA CANCELED [facility] MDEA CANCELED [facility] Phencyclindine (PCP) CANCELED [facility] OPIOID ANALGESICS CANCELED [facility] Heroin Metabolite(6-RAMONA) CANCELED [facility] Codeine CANCELED [facility] Morphine CANCELED [facility] Hydrocodone [facility]ELED [facility] Hydromorphone [facility]ED [facility] Oxycodone CANCELED [facility] Oxymorphone [facility]ED [facility] Meperidine CANCELED [facility] Normeperidine [facility]ED [facility] Methadone CANCELED [facility] Methadone Metabolite (EDDP) CANCELED [facility] Tramadol CANCELED [facility] Fentanyl CANCELED [facility] Norfentanyl [facility] Sufentanil CANCELED [facility] OPIOID ANTAGONISTS CANCELED [facility] Buprenorphine [facility] Norbuprenorphine CANCELED [facility] Naltrexone CANCELED [facility] Naloxone CANCELED [facility] SEDATIVES/MUSCLE RELAXANTS CANCELED [facility] Carisoprodol CANCELED [facility] Meprobamate [facility] TRICYCLIC ANTIDEPRESSANTS CANCELED [facility] Amitriptyline [facility]ELED [facility] Clomipramine CANCELED [facility] Desipramine [facility] Doxepin CANCELED [facility] Imipramine CANCELED [facility] Nortriptyline [facility] Urine Creatinine CANCELED mg/dL [facility] Nitrite CANCELED [facility] Glutaraldehyde CANCELED [facility] pH CANCELED 10/08/2024 7:09 AM EDT [facility] Comment:The released value 5 .6 was canceled by YAQUELIN on 10/08/2024 07:09 Specific [place] CANCELED 10/09/19 7:09 AM EDT [facility] Comment:The released value 1 .009 was canceled by YAQUELIN on 10/08/2024 07:09 Bleach CANCELED [facility] Pyridinium Chlorochromate CANCELED [facility] Urine 10/07/2024 10:5 0 PM EDT 10/08/2024 2:07 AM EDT Narrative [facility] - 10/08/2024 7:09 AM EDT See accn [id number] us Gerri Peterson MD URINE ORDERABLES Edited Result - Final [facility] [address] [place] [address], [facility] * (ABNORMAL) Urine Drug Screen Reflex to Confirmation (10/07/2024 10:50 PM EDT) Only the most recent of2 resultswithin the time period is included. Amphetamine, 500 ng/mL Cutoff Negative Negative 10/08/2024 3:00 AM EDT [facility] Barbiturates UR, 300 ng/mL Cutoff Negative Negative 10/08/2024 3:00 AM EDT [facility] Buprenorphine, 5 ng/mL Cutoff Negative Negative 10/08/2024 3:00 AM EDT [facility] Benzodiazepines UR, 300 ng/mL Cutoff Negative Negative 10/08/2024 3:00 AM EDT [facility] Cocaine UR, 300 ng/mL Cutoff Negative Negative 10/08/2024 3:00 AM EDT [facility] Methadone, UR, 300 ng/mL Cutoff Negative Negative 10/08/2024 3:00 AM EDT [facility] Opiates UR, 300 ng/mL Cutoff Negative Negative 10/08/2024 3:00 AM EDT [facility] Oxycodone, 100 ng/mL Cutoff Presumptive Positive(A) Negative 10/08/2024 3:00 AM EDT [facility] Tricyclic Antidepressants, 300 ng/mL Cutoff Negative Negative 10/08/2024 3:00 AM EDT [facility] Comment:This test has been d eveloped and its performance characteristics determined by [facility] which is certified under the [...] [facility] Comment:This is a screening method only and may be associated with false positive and/or false negative results. Results are not definitive without additional confirmatory testing by mass spectrometry. Fentanyl, 2 ng/mL Cutoff Negative Negative 10/08/2024 3:00 AM EDT [facility] Comment:This test has been d eveloped and its performance characteristics determined by [facility] which is certified under the [...] [facility] - 10/08/2024 3:00 AM EDT CONFIRMATION TO FOLLOW Gerri Peterson MD URINE ORDERABLES Final Result Performing Organization Address [facility] Co de Phone Number [address] * Ova and Parasite Comprehensive w/ Giardia/Crypto (10/07/2024 10:50 PM EDT) O & P Method: Concentration and Trichrome Stain [facility] Results No Amoeba, Ova, Or Parasites Seen. -- O and P examination of additional specimens is recommended only for symptomatic patients, immunosuppressed patients or those with an appropriate travel history. [facility] Feces FECES / Unknown 10/07/2024 1 0:50 PM EDT 10/08/2024 1:53 AM EDT Comment:F Bisi Hernandez DO MICROBIOLOGY - GENERAL ORDERABLE S Final Result Performing Organization Address [facility] de Phone Number [address] * Hepatitis A IgM (10/07/2024 6:38 PM EDT) Only the most recent of2 resultswithin the time period is included. Hep A IgM Nonreactive Nonreactive 10/07/2024 7:46 PM EDT [facility] Serum 10/07/2024 6:38 PM EDT 10/07/2024 6:52 PM EDT Narrative [facility] - 10/07/2024 7:46 PM EDT IgM anti-HAV not detected. Does not exclude the possibility of exposure to or infection with HAV. Levels of IgM anti-HAV may be below the cut-off in early infection. Gerri Peterson MD LAB BLOOD ORDERABLES Final Resu lt Performing Organization Address City/[facility]/ZIP Co de Phone Number [facility] [address] [facility]. [address] * Syphilis Screening (Trepia) (10/07/2024 6:37 PM EDT) Treponema Pallidum Negative Negative 10/07/2024 8:27 PM EDT [facility] Comment: No serological evidence of infection with Treponema pallidum (incubating or early primary syphilis cannot be excluded). Serum 10/07/2024 6:37 PM EDT 10/07/2024 6:50 PM EDT Gerri Peterson MD LAB BLOOD ORDERABLES Final Resu lt Performing Organization Address [facility] Co de Phone Number [facility] [address] [facility]. [address] * (ABNORMAL) CMV IgG Antibody (10/07/2024 6:37 PM EDT) CMV IgG Positive(A ) Negative 10/07/2024 8:26 PM EDT [facility] CMV IGG NUM 8.40(H) 0.00 - 0.59 U/mL 10/07/2024 8:26 PM EDT [facility] Serum 10/07/2024 6:37 PM EDT 10/07/2024 6:50 PM EDT Gerri Peterson MD LAB BLOOD ORDERABLES Final Resu lt Performing Organization Address City/[facility]/ZIP Co de Phone Number [facility] [address] [facility]. [address] * (ABNORMAL) Alpha 1 Antitrypsin AAT Quant & Mutation (10/07/2024 6:37 PM EDT) A-1 Antitrypsin 99(L) 101 - 187 mg/dL 10/09/2024 4:28 AM EDT [facility] A-1 Antitrypsin Pheno Comment 10/10/2024 4:05 PM EDT [facility] Comment: A1A Phenotype is consistent with a heterozygous phenotype consisting of one M (normal) allele and one allele that cannot be identified at this time. The unknown allele is not consistent with Z (deficient), S (deficient), or F (deficient). MM Phenotype is considered to be normal , producing normal serum levels of [id number] inhibitor and not associated with clinical disease. [...] [facility] - 10/10/2024 4:08 PM EDT PERFORMED AT: [facility] [address] [id number] DRYWALL HANGER HELPER: Bassam Khalil, PhD PHONE: [phone] PERFORMED AT: [facility] [address] [id number] DRYWALL HANGER HELPER: Mandy Abdul MD PHONE: [phone] us Gerri Peterson MD LAB BLOOD ORDERABLES Final Resu lt [facility] [address] [place] [address], [facility] * Strongyloides Ab (10/07/2024 6:37 PM EDT) Strongyloides Ab Negative Negative 10/11/19 11:51 AM EDT [facility] Serum 10/07/2024 6:37 PM EDT 10/10/2024 12:07 PM EDT Narrative [facility] - 10/10/2024 12:07 PM EDT PERFORMED AT: [facility] [id number] DRYWALL HANGER HELPER: Mandy Abdul MD PHONE: [phone] Gerri Peterson MD LAB BLOOD ORDERABLES Final Resu lt Performing Organization Address City/[facility]/ZIP Co de Phone Number [facility] [address] [facility]. [address] * Ethanol, Serum (10/07/2024 6:37 PM EDT) Only the most recent of2 resultswithin the time period is included. Pathologist [facility] Ethanol <10 0 - 10 mg/dL 10/07/2024 8:36 PM EDT [facility] Serum 10/07/2024 6:37 PM EDT 10/07/2024 6:50 PM EDT Gerri Peterson MD LAB BLOOD ORDERABLES Final Resu lt [facility] [address] [facility]. [address] * Katie-Watkins virus early antigen antibody, IgG (10/07/2024 6:37 PM EDT) EBV Early Antigen Ab, IgG <9.0 0.0 - 8.9 U/mL 10/09/2024 2:16 PM EDT [facility] Comment: Negative < 9.0 Equivocal 9.0 - 10.9 Positive >10.9 Serum Frozen 10/07/2024 6:37 PM EDT 10/09/2024 3:07 PM EDT Narrative [facility] - 10/09/2024 3:07 PM EDT PERFORMED AT: [address] [id number] DRYWALL HANGER HELPER: Bassam Khalil, PhD PHONE: [phone] Result [facility] Gerri Peterson MD LAB BLOOD ORDERABLES Final Resu lt Performing Organization Address City/[facility]/ZIP Co de Phone Number [facility] [address] [facility]. [address] * (ABNORMAL) Varicella zoster antibody, IgG (10/07/2024 6:37 PM EDT) Varicella IgG Positive( A) Negative S/CO 10/07/2024 8:34 PM EDT [facility] Comment:Result indicates the presence of detectable [...] [facility] Serum 10/07/2024 6:37 PM EDT 10/07/2024 6:50 PM EDT Result [facility] Gerri Peterson MD LAB BLOOD ORDERABLES Final Resu lt Performing Organization Address [facility] Co de Phone Number [facility] [address] [facility]. [address] * TSH (Thyroid Stimulating Hormone) (10/07/2024 6:37 PM EDT) TSH 0.81 0.45 - 4.12 uIU/mL 10/07/2024 8:17 PM EDT [facility] Serum 10/07/2024 6:37 PM EDT 10/07/2024 6:50 PM EDT Gerri Peterson MD LAB BLOOD ORDERABLES Final Resu lt [facility] [address] * IgA (10/07/2024 6:37 PM EDT) IgA 227.0 70.0 - 400.0 mg/dL 10/08/2024 11:07 AM EDT HEALTH LAB Comment:Please interpret the se findings in conjunction with clinical findings, protein electrophoresis, and immunotyping/immunofixation results. Serum 10/07/2024 6:37 PM EDT 10/07/2024 6:50 PM EDT us Gerri Peterson MD LAB BLOOD ORDERABLES Final Resu lt [facility] [address] * (ABNORMAL) Lipid Profile (10/07/2024 6:37 PM EDT) Pathologist [facility] Non-HDL Cholesterol, Calculated See Note 0 - [...] [facility] HDL 4(L) 60 - 92 mg/dL [...] Resu lt [facility] [address] * X-ray Mandible minimum 4-views (10/07/2024 [...] EXAM: US ABDOMEN COMPLETE EXAM: US DUPLEX [id number] COMPLETE INDICATION: elevated bilirubin COMPARISON: Ultrasound and [...] EXAM: US ABDOMEN COMPLETE EXAM: US DUPLEX [id number] COMPLETE INDICATION: elevated bilirubin COMPARISON: Ultrasound and [...] at 10/07/2024 4:26 PM EDT Bisi Hernandez [facility] US ORDERABLES Final Result * AFP Tumor Marker (10/07/2024 6:00 AM EDT) Only the most recent of2 resultswithin the time period is included. Pathologist [facility] AFP-Tumor Marker 2.0 0.0 - 9.0 ng/mL 10/07/2024 7:11 AM EDT [facility] Serum 10/07/2024 6:00 AM EDT 10/07/2024 6:39 AM EDT Narrative HEALTH LAB - 10/07/2024 7:11 AM EDT The testing method for AFP is a chemiluminescent immunoassay manufactured by [employer] Concentrations of AFP obtained by different assay methods or kits may vary and cannot be used interchangeably. AFP results cannot be interpreted as absolute evidence of the presence or absence of malignant disease. Ni Rivera MD LAB BLOOD ORDERABLES Final Resul t [facility] [address] [place] [address] * Osmolality (10/06/2024 2:50 PM EDT) [facility] Osmolality, Measured 304 278 - 305 mOsm/kg 10/06/2024 3:49 PM EDT [facility] Serum 10/06/2024 2:50 PM EDT 10/06/2024 2:56 PM EDT Jani Vanegas MD LAB BLOOD ORDERABLES Final Resul t [facility] [address] [facility]. [address] * CT Head WO contrast (10/06/2024 [...] MD at 10/06/2024 4:50 PM EDT Kush Psoada MD, PhD IMG CT ORDERABLES Fin al [...] ORDERABLES Final Result Performing Organization Address [facility] Co de Phone Number [facility] [address] [place] [address] * Potassium, urine, random (10/06/2024 1:25 PM [...] Address [facility] de Phone Number [facility] [address] [place] [address] * Osmolality, Urine (10/06/2024 1:25 PM EDT) Osmolality, Ur 386 50 - 1,200 mOsm/kg 10/06/2024 1:55 PM EDT [facility] Urine 10/06/2024 1:25 PM EDT 10/06/2024 1:32 PM EDT us Jani Vanegas MD URINE ORDERABLES Final Result Performing Organization Address [facility] de Phone Number [facility] [address] * Chloride, urine, random (10/06/2024 1:25 PM EDT) Only the most recent of2 resultswithin the time period is included. Pathologist [facility] Chloride, Ur <15 mmol/L 10/06/2024 1:56 PM EDT [facility] Comment:Reference range not established for this test. Urine 10/06/2024 1:25 PM EDT 10/06/2024 1:32 PM EDT Jani Vanegas MD URINE ORDERABLES Final Result [facility] [address] [facility]. [address] * (ABNORMAL) Salicylate Level (10/06/2024 4:01 AM EDT) [facility] Salicylate Lvl <3(L) 10 - 30 mg/dL 10/06/2024 4:58 AM EDT [facility] Serum 10/06/2024 4:01 AM EDT 10/06/2024 4:22 AM EDT Bisi Hernandez DO LAB BLOOD ORDERABLES Final Resul t Performing Organization Address City/[facility]/ZIP Co de Phone Number [facility] [address] [facility]. [address] * Upper Respiratory Viral/Bacterial Panel-INFORMATION SECURITY ANALYST Only (10/06/2024 3:12 AM EDT) [facility] Adenovirus Not Detected Not Detected 10/06/2024 11:38 PM EDT [facility] Coronavirus (229E,HKU1,NL63,OC 43) Not Detected Not Detected 10/06/2024 11:38 PM EDT [facility] SARS-CoV-2 Not Detected Not Detected 10/06/2024 11:38 PM EDT [facility] Human Metapneumovirus Not Detected Not Detected 10/06/2024 11:38 PM EDT [facility] Human Rhinovirus/Enterov irus Not Detected Not Detected 10/06/2024 11:38 PM EDT [facility] Influenza A Not Detected Not Detected 10/06/2024 11:38 PM EDT [facility] Influenza A H1 Not Detected Not Detected 10/06/2024 11:38 PM EDT [facility] Influenza A/H1-2009 Not Detected Not Detected 10/06/2024 11:38 PM EDT [facility] Influenza A H3 Not Detected Not Detected 10/06/2024 11:38 PM EDT [facility] Influenza B Not Detected Not Detected 10/06/2024 11:38 PM EDT [facility] Parainfluenza 1 Not Detected Not Detected 10/06/2024 11:38 PM EDT [facility] Parainfluenza 2 Not Detected Not Detected 10/06/2024 11:38 PM EDT [facility] Parainfluenza 3 Not Detected Not Detected 10/06/2024 11:38 PM EDT [facility] Parainfluenza 4 Not Detected Not Detected 10/06/2024 11:38 PM EDT [facility] Resp. Syncycial Virus A Not Detected Not Detected 10/06/2024 11:38 PM EDT [facility] Resp. Syncycial Virus B Not Detected Not Detected 10/06/2024 11:38 PM EDT [facility] Chlamydia pneumoniae Not Detected Not Detected 10/06/2024 11:38 PM EDT [facility] Mycoplasma pneumoniae Not Detected Not Detected 10/06/2024 11:38 PM EDT [facility] Comment: The Respiratory Viral-Bacterial Panel is [...] Test results have been sent to the [facility] in accordance with state requirements. For a fact sheet for healthcare providers, see https://www.fda.gov/media/860700/download. For a fact sheet for patients, see https://www.fda.gov/media/823315/download. Nasopharyngeal Swab NASOPHARYNGEAL SWAB / Unknown 10/06/2024 3:12 AM EDT 10/06/2024 5:41 PM EDT Comment:INFORMATION SECURITY ANALYST Bisi Akana maría DO BODY FLUIDS AND STOOLS ORDERABLE S Final Result Performing Organization Address [facility]/ZIP Co de Phone Number [facility] [address] [facility]. [address] * Thyroid Function [place] (10/06/2024 1:04 AM EDT) TSH 0.84 0.45 - 4.12 uIU/mL 10/06/2024 2:20 AM EDT [facility] Serum 10/06/2024 1:04 AM EDT 10/06/2024 1:39 AM EDT Bisi Akana maría Zettaset LAB BLOOD ORDERABLES Final Resul t Performing Organization Address [facility] de Phone Number [facility] [address] * #2 Blood culture-Peripheral site 2 (10/06/2024 1:04 AM EDT) Only the most recent of2 resultswithin the time period is included. Culture Result No Growth After 5 Days [facility] Blood BLOOD SPECIMEN / Unknown 10/06/2024 1:04 AM EDT 10/06/2024 4:57 AM EDT Narrative [facility] - 10/11/2024 5:05 AM EDT Suboptimal volume of blood received. Interpret results with caution. [employer] DO MICROBIOLOGY - GENERAL ORDERABLE S Final Result Performing Organization Address [facility]/ZIP Co de Phone Number [facility] [address]. [address] * (ABNORMAL) Acetaminophen Level (10/06/2024 1:04 AM EDT) Acetaminophen Level <10(L) 10 - 30 ug/mL 10/06/2024 2:08 AM EDT [facility] Serum 10/06/2024 1:04 AM EDT 10/06/2024 1:30 AM EDT us Bisi Hernandez DO LAB BLOOD ORDERABLES Final Resul t [facility] [address] 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, VRE- urine 10/31/2024/08/2024 Insurance [facility] [place] [id number] [facility] [employer] Member Subscriber Plan / Payer (Ef fective 2024-Present) Name:Blair Anderson Relation to Subscriber:Self Name:Blair Anderson Payer ID:[id number] Group ID:Not on file Type:Transplant Address: [address] [place] [address] Advance Directives For more information, please contact: [phone] * Full Code (Latest Code Status on [...] 9:55 PM 08/19/2024 4:56 PM Care Teams Field Health Officer Relationship Specialty Start Date End Date Enedina Mcguire NP [address] [place] [address] PCP - General Internal Medicine 10/05/24 Maureen Pantoja, RN Txp Post Coordinator Transplant Hepatology 10/28/24
--- OUTSIDE RECORDS SUMMARY | 2024-12-23 10:06 | XMS_ITS | Encounter Summary ---
Author Organization [facility] Address [address] [place] [address] Care Team Providers Care Property Utilization Manager Name Role Phone Enedina Mcguire APRN Primary Care Provider + Reason for Visit * Reason Comments Med Refill Encounter Details Date Type Department Care Team ([facility] st Contact Info) Description 12/12/2024 Refill [facility] INTERNAL MEDICINE [address] [place] [address] Enedina Mcguire APRN [address] [place], [place] [id number] Acquired hypothyroidism; Secondary esophageal varices without bleeding [...] Recorded In the past 12 months has [employer], gas, oil, or water [employer] threatened to shut off services in your [...] Measure Score 0 10/02/2022 [facility] - Occupational Stress Questionnaire [...] GED or equivalent No 07/09/2024 Preferred Language Syrian 07/09/2024 PHQ-2 Answer Date Recorded Patient Health [...] Description 01/01/2025 2:15 PM EDT Office Visit [facility] [address] [phone] Vazquez Christie PA-C [address] [place] [address] documented as of this encounter Visit Diagnoses Diagnosis Acquired hypothyroidism Unspecified hypothyroidism Secondary esophageal varices without bleeding documented in this encounter Additional Health Concerns Assessment Noted Time PHQ-2 Depression Total Score: 1 12/31/19 24 3:25 PM EDT documented as of this encounter Care Teams Property Utilization Manager Relationship Specialty Start Date End Date Enedina Mcguire APRN [address] [place] [address] PCP - General Nurse Practitioner 10/27/24 documented as of this encounter
--- OUTSIDE RECORDS SUMMARY | 2024-12-23 10:06 | XMS_ITS | Encounter Summary ---
Author Organization [facility] Address [address] [place] [address] Care Team Providers Care Sr. Pricing Analyst Name Role Phone Enedina Mcguire NP Primary Care Provider + [phone] Maureen Pantoja RN Unavailable Unavail able Source [...] release of HIV test results or diagnoses. [id number] Health Encounter Details Date Type Department Care Team (Late st Contact Info) Description 12/18/2024 Refill [facility] Liver Transplant at [address] [place] [phone] Maureen Pantoja, RN Encounter for therapeutic drug monitoring; S/P liver transplant ([facility]); Hypomagnesemia; Kidney transplant recipient; Hypertension, unspecified type; [...] Recorded In the past 12 months has [employer], gas, oil, or water [employer] threatened to shut off services in your [...] for therapeutic drug monitoring S/P liver transplant ([facility]) Hypomagnesemia Disorders of magnesium metabolism Kidney transplant recipient Hypertension, unspecified type Gastroesophageal reflux disease, unspecified whether esophagitis present documented in this encounter Additional Health Concerns Infection Onset Date Last Indicated Resolved Time 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 Pricing Analyst Relationship Specialty Start Date End Date Enedina Mcguire NP [address] [place] [address] PCP - General Internal Medicine 10/05/24 Maureen Pantoja, RN Txp Post Coordinator Transplant Hepatology 10/28/24 documented as of this encounter
--- OUTSIDE RECORDS SUMMARY | 2024-12-23 10:06 | XMS_ITS | Encounter Summary ---
Author Organization [facility] Address [address] [place] [address] Care Team Providers Care Pigment Presser Name Role Phone Enedina Mcguire NP Primary Care Provider + [phone] Maureen Pantoja RN Unavailable Unavail able Source [...] release of HIV test results or diagnoses. [id number] Health Encounter Details Date Type Department Care Team (Late st Contact Info) Description 12/17/2024 Chart Note [facility] Liver Transplant at [address] [place] [phone] Marlene Ro MA 12/16 Labs entered [facility] Social History Tobacco Use Types Packs/Day Years Used Date Smoking Tobacco: Former Cigarettes Smokeless Tobacco: Current Alcohol Use Standard Drinks/Week Comments Yes 0 (1 standard drink = 0.6 oz pure alcohol) History of alcohol abuse, reports no use in 3 week- typically endorses use as 4 glasses of wine a days Utilities Answer Date Recorded In the past 12 months has e [employer], gas, oil, or water [employer] threatened to shut off services in your [...] Progress Notes * Marlene Ro MA - 12/17/2024 10:44 AM EDT 12/16 Labs entered [facility] documented in this encounter Plan of Treatment Not on file documented as of this encounter Procedures Procedure Name Priority Date/Time Associated Diagnosis Comments HEPATIC FUNCTION PANEL Routine 12/16/2024 10:05 AM EDT TACROLIMUS LEVEL Routine 12/16/2024 10:0 5 AM EDT PROTIME-INR Routine 12/16/2024 10:05 AM EDT CBC AND DIFFERENTIAL Routine 12/16/2024 10:05 AM EDT MAGNESIUM Routine 12/16/2024 10:05 AM EDT RENAL FUNCTION PANEL W/O EGFR Routine 12/16/2024 10:05 AM EDT documented in this encounter Results * Tacrolimus level (12/16/2024 10:05 AM EDT) Tacrolimus Lvl 11.3 6 - 15 ng/mL Whole Blood Historical Provider MD LAB BLOOD ORDERABLES Denisse l Result * (ABNORMAL) Magnesium (12/16/2024 10:05 AM EDT) Magnesium 1.3(A) 1.6 - 2.4 mg/dL Plasma Narrative Resulting Agency Comment [facility] Historical Provider MD LAB BLOOD ORDERABLES Denisse l Result * (ABNORMAL) Renal Function Panel w/o EGFR (12/16/2024 10:05 AM EDT) Glucose 94 BUN 14 CO2 23(A) 13 - 22 mmol/L Creatinine 0.80 Potassium 4.3 Sodium 141 Chloride 108 Phosphorus 4.9 2.5 - 4.9 mg/dL Calcium 10.0 EGFR 107 mg/dL Albumin 4.4 3.5 - 5.0 g/dL Blood Narrative Resulting Agency Comment [facility] Result Formerly [facility], [facility]1983 MD LAB BLOOD ORDERABLES Denisse l Result * Protime-INR (12/16/2024 10:05 AM EDT) Pathologist [facility] INR 0.95 0.9 - 1.1 Plasma Narrative Resulting Agency Comment [facility] Result Formerly [facility], [facility]–1983 MD LAB BLOOD ORDERABLES Denisse l Result * (ABNORMAL) CBC and differential (12/16/2024 10:05 AM EDT) Hemoglobin 11.3(A) 13.5 - 17.5 g/dL Hematocrit [...] 4.8 10^3/mL Blood Narrative Resulting Agency Comment [facility] Result Formerly [facility], [facility] MD LAB BLOOD ORDERABLES Denisse l Result * Hepatic Function Panel (12/16/2024 10:05 AM EDT) Bilirubin, Direct 0.2 Bilirubin, Indirect 0.2 Alkaline Phosphatase 73 ALT 15 AST 19 Total Bilirubin 0.4 Total Protein 6.2 Plasma Narrative Resulting Agency Comment [facility] us Historical Provider LAB BLOOD ORDERABLES Denisse l Result documented in this encounter Visit Diagnoses Not on filedocumented in this encounter Additional Health Concerns Infection Onset Date Last Indicated Resolved Time 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
--- OUTSIDE RECORDS SUMMARY | 2024-12-23 10:06 | XMS_ITS | Encounter Summary ---
Author Organization [facility] Address [address] [place] [address] Care Team Providers Care Stab Setter And Driller Name Role Phone Enedina Mcguire NP Primary Care Provider + [phone] Maureen Pantoja RN Unavailable Unavail able Source [...] release of HIV test results or diagnoses. [id number] Reason for Visit * Reason Comments Results Encounter Details Date Type Department Care Team (Riky st Contact Info) Description 11/18/2024 Telephone [facility] Liver Transplant at [address] [address] Maureen Pantoja, RN Results Social [...] In the past 12 months has e [employer], gas, oil, or water [employer] threatened to shut off services in your [...] documented as of this encounter Care Teams Stab Setter And Driller Relationship Specialty Start Date End Date Enedina Mcguire NP [address] [place] [address] PCP - General Internal Medicine 10/05/24 Maureen Pantoja, RN Txp Post Coordinator Transplant Hepatology 10/28/24 documented as of this encounter
--- OUTSIDE RECORDS SUMMARY | 2024-12-23 10:06 | XMS_ITS | Encounter Summary ---
Author Organization [facility] Address [address] [place] [address] Care Team Providers Care Signalman Name Role Phone Enedina Mcguire NP Primary Care Provider [phone] Maureen Pantoja RN Unavailable Unavail able Source [...] release of HIV test results or diagnoses. [id number] Reason for Visit * Reason Comments Medication Refill Encounter Details Date Type Department Care Team (Late st Contact Info) Description 12/21/[address] [facility] Liver Transplant at [address] [phone] Lydia Sanchez MD [address] [place] [address] Liver[place] [address] Encounter for therapeutic drug monitoring; S/P liver transplant ([facility]); Hypomagnesemia; Kidney transplant recipient; Hypertension, unspecified [...] for therapeutic drug monitoring S/P liver transplant ([facility]) Hypomagnesemia Disorders of magnesium metabolism Kidney transplant recipient Hypertension, unspecified type Gastroesophageal reflux disease, unspecified whether esophagitis present documented in this encounter Additional Health Concerns Infection Onset Date Last Indicated Resolved Time 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
--- OUTSIDE RECORDS SUMMARY | 2024-12-23 10:07 | XMS_ITS | Encounter Summary ---
Author Organization [employer] ([place], [place], [place], [place]) Address [address] [place] [address] Care Team Providers Care Medical Records Auditor Name Role Phone Unavailable Primary Care Provider Unavailabl e Encounter Details Date Type Department Care Team (Late st Contact Info) Description 06/03/2018 Transcribed Document [facility] [address] [place] [address] ProviderEbenezer MD [address] [place], [place] [id number] Social History Tobacco Use Types Packs/Day Years [...] - Historical ProviderMD - 06/03/2018 2:24 PM CRIME LAB TECHNICIAN Electronically signed by Gabri[facility] Conversion Ladder Operator Cerner at 08/29/2022 6:41 PM CDT documented in this encounter Plan of Treatment Not on file documented as of this encounter Visit Diagnoses Not on filedocumented in this encounter
--- OUTSIDE RECORDS SUMMARY | 2024-12-23 10:07 | XMS_ITS | Clinical Summary ---
Author Organization [employer] ([place], [place], [place], [place]) Address [address] [place] [address] Care Team Providers Care Bag Machine Operator Helper Name Role Phone Unavailable Primary Care [...]
--- OUTSIDE RECORDS SUMMARY | 2024-12-23 10:07 | XMS_ITS | Encounter Summary ---
Author Organization [employer] ([place], [place], [place], [place]) Address [address] [place] [address] Care Team Providers Care Bakery Supervisor Name Role Phone Unavailable Primary Care Provider Carmen e Encounter Details Date Type Department Care Team (Late st Contact Info) Description 06/03/2018 Transcribed Document [facility] [place] [address] [place] [address] ProviderEbenezer MD [address] [place] [address] Social History Tobacco Use Types [...] - Historical ProviderMD - 06/03/2018 3:04 PM CIVIL CADD TECHNICIAN [address] [place] [address] Patient Information Name: JULIEN ZELAYA [...] [address] [place] [address] [place] [address] [employer] (1) Within 2 to 3 days Patient [...] off of the skin. General Instructions??? Take pxnx-yta-bcaauaq and prescription medicines only as told by [...] 04/30/2006 Document Revised: 09/29/2016 Document Reviewed: 04/26/2015 [employer] Patient Education ? 2017 [employer] Allergies: No Known Medication Allergies Medication [...] verify that JULIEN ZELAYA was seen at [facility] Emergency Department on ,06/03/2018 15:04:17. This [...] Assistance with quitting is available by contacting 0-500-VGXA-NOW. This is a free resource providing counseling, [...] Electronic Communications Privacy Act 18 U.S.C. ???Sections 4001-1171,?? and contain information intended for the specified [...] sure to sign up for the [facility] patient portal, which gives you 04/12 access to your medical information ??? including these discharge instructions ??? using your computer, smartphone, or tablet. Just go to [employer] to get started. Questions? Call . [...] Electronically signed by Luis Eduardo Ochoa Conversion Phlebotomy Services Representative Celia at 08/29/2022 6:45 PM CDT documented in this encounter Plan of Treatment Not on file documented as of this encounter Visit Diagnoses Not on filedocumented in this encounter
--- OUTSIDE RECORDS SUMMARY | 2024-12-23 10:07 | XMS_ITS | Encounter Summary ---
Author Organization [employer] ([place], [place], [place], [place]) Address [address] [place] [address] Care Team Providers Care Seasonal Tax Preparer Name Role Phone Unavailable Primary Care Provider Unavailabl e Encounter Details Date Type Department Care Team (Late st Contact Info) Description 06/03/2018 Transcribed Document [facility] Family Medicine [address] [place] [address] ProviderEbenezer MD [address] [place] [address] Social History Tobacco Use Types [...] - Historical ProviderMD - 06/03/2018 3:04 PM COST RECORDER [place] [address] [facility] [place] [address] PERSON INFORMATION Name JULIEN ZELAYA Age 33 Years 1985 Sex Male Language Citizen Of [place] PCP SALLY EVERETT (REF) T Marital Status Single Med Service Emergency Medicine Acct# Arrival 06/03/2018 12:08:00 Visit Reason Finger laceration; CUT FINGERS Acuity 3 - Urgent LOS 000 02:56 Depart Date: 06/03/18 03:04 PM Address: [address] [facility] [address] Comment: PROVIDER INFORMATION Provider Role Assigned Unassigned Lizeth Almeida, PROTOTYPE ENGINEER MANAGER Nurse 06/03/2018 12:39:09 DOMINIQUE BREWER PA-C [...] PURI # [address] [place], [place] [id number] [employer] ([employer] [place] Within 2 to 3 days Comment: documented in this encounter Plan of Treatment Not on file documented as of this encounter Visit Diagnoses Not on filedocumented in this encounter
--- OUTSIDE RECORDS SUMMARY | 2024-12-23 10:07 | XMS_ITS | Encounter Summary ---
Author Organization [employer] ([place], [place], [place], [place]) Address [address] [place] [address] Care Team Providers Care Traffic Ii Manager Name Role Phone Unavailable Primary Care Provider Unavailabl e Encounter Details Date Type Department Care Team (Late st Contact Info) Description 06/03/2018 Transcribed Document [facility] Family Medicine [address] [place] [address] ProviderEbenezer MD [address] [place] [address] Social History Tobacco Use Types [...] - Historical ProviderMD - 06/03/2018 12:08 PM KALSOMINER ED Triage Entered On: 06/03/2018 12:17 EST Performed On: 06/03/2018 12:12 EST by KANU VELEZ RN ED Triage Across the Room Triage Date/Time : 06/03/2018 12:12 EST Chief Complaint : lacerations to rt index and left middle finger s/p picking up a glass that shattered lpta. lacerations noted with bleeding controlled KANU VELEZ RN - 06/03/2018 12:12 EST DCP GENERIC CODE Tracking Acuity : 3 - Urgent Tracking Group : [facility] KANU VELEZ RN - [...] 12:17:41 EST) Problems(Active) HTN (hypertension) (SNOMED CT :1381283874 ) Name of Problem: HTN (hypertension) ; Recorder: KANU VELEZ RN; Confirmation: Confirmed ; Classification: Medical ; Code: [id number] ; Contributor System: [employer] ; Last Updated: 06/03/2018 12:14 EST ; Life Cycle Date: 06/03/2018 ; Life Cycle Status: Active ; Vocabulary: SNOMED CT Diagnoses(Active) Finger laceration Date: 06/03/2018 ; Diagnosis Type: Reason For Visit ; Confirmation: Complaint of ; Clinical Dx: Finger laceration ; Classification: Medical ; Clinical Service: Emergency medicine ; Code: PNED ; Probability: 0 ; Diagnosis Code: [id number] ED Height and Weight Height Source : Stated Height Entry Format : [place] Height, Feet : 6 ft(Converted to: 183 cm, 72 Inch) Height, Inches : 4 Inch(Converted to: 0 ft 4 Inch, 10.16 cm) Clinical Height : 193.04 cm Weight Source, ED : Standing scale Weight Entry Format : [place] Weight, Pounds : 265 lb Clinical Dosing Weight : 120.45 kg Body Surface Area (BSA) : 2.5 m2 Body Mass Index : 32.3 kg/m2 ([place]) [place] Body Weight (IBW) : 85.74 kg KANU [...] the text rendition version of the form. Electronically signed by Luis Eduardo Ochoa Conversion Semiconductor Lab Technician Cerner at 08/29/2022 6:36 PM CDT documented in this encounter Plan of Treatment Not on file documented as of this encounter Visit Diagnoses Not on filedocumented in this encounter
--- OUTSIDE RECORDS SUMMARY | 2024-12-23 10:07 | XMS_ITS | Referral Summary ---
Author Organization [employer] ([place], [place], [place], [place]) Address [address] [place] [address] Care Team Providers Care Window Shade Ring Coverer Name Role Phone Unavailable Primary Care Provider [...]
--- OUTSIDE RECORDS SUMMARY | 2024-12-23 10:07 | XMS_ITS | Encounter Summary ---
Author Organization [employer] ([place], [place], [place], [place]) Address [address] [place] [address] Care Team Providers Care Internal Carver Name Role Phone Unavailable Primary Care Provider Unavailabl e Encounter Details Date Type Department Care Team (Late st Contact Info) Description 06/03/2018 Transcribed Document [facility] Family Medicine [address] [place] [address] ProviderEbenezer MD [address] [place], [place] [id number] Social History Tobacco Use Types Packs/Day Years [...] - Historical ProviderMD - 06/03/2018 12:08 PM LIFESTYLE COORDINATOR ED Assessment Entered On: 06/03/2018 14:51 EST Performed On: 06/03/2018 13:50 EST by Lizeth Almeida, AUTOMOTIVE GLASS SPECIALIST Quick Look Assessment Level of Consciousness : Alert Affect/Behavior : Calm, Cooperative Orientation : Oriented x 4 Skin Color : Other: [place] Skin Temperature : Warm Skin Description : Dry Lizeth Almeida, RN - 06/03/2018 14:50 EST ED General-Functional Assess Communication Barrier : None Primary Language : Gabonese Any Spiritual/Cultural Needs or Requests : No [...]
--- OUTSIDE RECORDS SUMMARY | 2024-12-23 10:07 | XMS_ITS | Encounter Summary ---
Author Organization [facility] Address [address] [place] [address] Care Team Providers Care Sales Training Manager Name Role Phone Enedina Mcguire NP Primary Care Provider + [phone] Maureen Pantoja RN Unavailable Unavail able Source [...] release of HIV test results or diagnoses. [id number] Health Encounter Details Date Type Department Care Team (Late st Contact Info) Description 11/18/2024 Chart Note [facility] Liver Transplant at [address] [place] [phone] Marlene Ro MA Social History Tobacco Use [...] Recorded In the past 12 months has [employer], gas, oil, or water [employer] threatened to shut off services in your [...] w/o EGFR (11/13/2024 8:44 AM EDT) Pathologist [facility] Glucose 108 mg/dL BUN 25(A) 4 - [...] 5.0 g/dL Blood Narrative Resulting Agency Comment [facility] us Historical Provider LAB BLOOD ORDERABLES Denisse l Result * Tacrolimus level (11/13/2024 8:44 AM EDT) Pathologist [facility] Tacrolimus Lvl 10.9 6 - 15 ng/mL Whole Blood Narrative Resulting Agency Comment [facility] Historical Provider LAB BLOOD ORDERABLES Denisse l Result * (ABNORMAL) CBC and differential (11/13/2024 8:44 AM EDT) Pathologist [facility] Hemoglobin 9.8(A) 13.5 - 17.5 g/dL Hematocrit [...] 5.7 10^3/mL Blood Narrative Resulting Agency Comment [facility] Historical Provider LAB BLOOD ORDERABLES Denisse l Result * (ABNORMAL) Hepatic Function Panel (11/13/2024 8:44 AM EDT) Bilirubin, Direct 0.6 Bilirubin, Indirect 0.2 Alkaline Phosphatase 137 U/L ALT 29 U/L AST 20 U/L Total Bilirubin 0.8 0.1 - 1.4 mg/dL Total Protein 5.8(A) 6.4 - 8.2 g/dL Plasma Narrative Resulting Agency Comment [facility] Historical Provider LAB BLOOD ORDERABLES Denisse l Result documented in this encounter Visit Diagnoses Not on filedocumented in this encounter Additional Health Concerns Infection Onset Date Last Indicated Resolved Time 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
--- OUTSIDE RECORDS SUMMARY | 2024-12-23 10:07 | XMS_ITS ---
Author Organization [facility] Address [address] [place] [address] Care Team Providers Care Major Case Detective Name Role Phone Enedina Mcguire NP Primary Care Provider + [phone] Maureen Pantoja RN Unavailable Unavail able Transplant Episode Liver Recipient [facility] ([place] [place] Organ Received: Liver Transplanted on 10/26/2024 Marked as Active Follow-up on 10/26/2024 Liver CoordinatorMaureen Pantoja RN Phone: N/A Fax: N/A Email: N/A Hoh Organ Diagnosis Organ Primary Contributory Liver Alcohol-Associated [...] N/A N/A Chris Orosco MD Referring Physician [phone] N/A Maureen Leeanna Pantoja, RN Txp Post Coordinator N/A N/A N/A NUBIA Barros Txp Manager Code N/A N/A N/A Harvey Domínguez III, MD Txp Surgeon [phone] N/A Mary Butler RN Txp Pre Coordinator N/A N/A N/A Events Post-Transplant Pre-Transplant Admitted: 10/25/2024 Referred: 08/13/2024 Transplanted: 10/26/2024 Evaluation began: Discharged: 11/02/2024 Committee: 10/14/2024 Center waitlisted: Pending Checklist Tasks (Due on or before 01/23/2025) Name Due Date Attached Appoint ment Social Work Consult 01/05/2025 Appointments (11/22/2024 - 01/23/2025) When With Visit Type Description 11/25/2024 Txp Lalit Oscar Established Patient E ncounter for therapeutic drug monitoring (Primary Dx); S/P liver transplant ([facility]); Hypomagnesemia; Kidney transplant recipient; Hypertension, unspecified type; Gastroesophageal reflux disease, unspecified whether esophagitis present; Abdominal pain, unspecified abdominal location 11/25/2024 Txp Lorrie Mascorro Established Patient NADIYA (acute kidney injury) ([facility]) (Primary Dx); Kidney replaced by transplant; Metabolic acidosis; Hypervolemia associated with renal insufficiency 12/09/2024 Txp Kady De La Rosa Established Patient Encounter for therapeutic drug monitoring (Primary Dx); S/P liver transplant ([facility]); Hypomagnesemia; Kidney transplant recipient; Hypertension, unspecified type; Gastroesophageal reflux disease, unspecified whether esophagitis present 12/09/2024 Txp Jose Hanna Established Patient Kidney transplant recipient (Primary Dx); Immunosuppressive management encounter following liver transplant ([facility]); Hypomagnesemia; S/P liver transplant ([facility]); Hypertension, unspecified type; Hyperparathyroidism ([facility])
--- OUTSIDE RECORDS SUMMARY | 2024-12-23 10:07 | XMS_ITS | Encounter Summary ---
Author Organization [employer] ([place], [place], [place], [place]) Address [address] [place] [address] Care Team Providers Care Securities Teller Name Role Phone Unavailable Primary Care Provider Unavailabl e Encounter Details Date Type Department Care Team (Late st Contact Info) Description 06/03/2018 Transcribed Document [facility] [address] [place] [address] ProviderEbenezer MD [address] [place], [place] [id number] Social History Tobacco Use Types Packs/Day Years [...] - Historical ProviderMD - 06/03/2018 3:03 PM [facility] Discharge Entered On: 06/03/2018 15:03 EST Performed On: 06/03/2018 15:03 EST by Lizeth Almeida, reinsurance claim analyst Process Patient Disposition : Discharge Personal Belongings [...] Gabriela [facility] Conversion Museum Security Chief Celia at 08/29/2022 6:35 PM CDT documented in this encounter Plan of Treatment Not on file documented as of this encounter Visit Diagnoses Not on filedocumented in this encounter
--- OUTSIDE RECORDS SUMMARY | 2024-12-23 10:07 | XMS_ITS ---
Author Organization [facility] Address [address] [place] [address] Care Team Providers Care Chrome Cleaner Name Role Phone Enedina Mcguire NP Primary Care Provider [phone] Maureen Pantoja RN Unavailable Unavail able Transplant Episode Kidney Recipient [facility] ([place] [place]) [facility] Organ Received: Left Kidney Transplanted on 10/27/2024 Marked as Active Follow-up on 10/27/2024 Kidney CoordinatorJosr Weber RN Phone: N/A Fax: N/A Email: N/A [facility] Organ Diagnosis Organ Primary Contributory Kidney Hepatorenal [...] N/A N/A Flaquito Mayen MD Txp Surgeon [phone] N/A Bruno Gonzalez MD Txp Online Marketing Specialist [phone] N/A Yovanny Curran MD Referring Physician [phone] N/A Events Post-Transplant Pre-Transplant Admitted: 10/25/2024 Referred: 10/07/2024 Transplanted: 10/27/2024 Evaluation began: Discharged: 11/02/2024 Committee: 10/20/2024 Center waitlisted: 5
--- OUTSIDE RECORDS SUMMARY | 2024-12-23 10:07 | XMS_ITS | Encounter Summary ---
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 History [...] EST Height Source Stated Height Entry Format [place] Height/Length, ARABIC (ft) 6 ft Height/Length ARABIC 4 Inch CLINICALHEIGHT 193.04 cm [place] Body Weight 85.74 kg Weight Source, ED Standing scale Weight Entry Format [place] Weight Austrian lb 265 lb CLINICALWEIGHT 120.45 kg Body [...] 14:22 EST, Discharge to: Home. Prescriptions: Prescription Will Call Order Clerk Pharmacy: Keflex 500 mg oral capsule (Prescribe): [...]
[2024-12-23 10:54] LABS: Hematocrit 33.3 % (42.0-52.0); Hemoglobin 11.3 g/dL (14.1-18.0); Immature Granulocytes % 1.2 %; Mean Corpuscular HGB Conc 33.9 g/dL (31.8-35.4); Mean Corpuscular Hemoglobin 31.7 pg (27.0-31.2); Mean Corpuscular Volume 93.5 fl (80-94); Nucleated Red Blood Cells % 0 %; Platelet Count 133 K/mm3 (142-424); Red Blood Count 3.56 M/mm3 (4.60-6.20); Red Cell Distribution Width-SD 55.2 fL; White Blood Count 4.3 K/mm3 (4.8-10.8)
[2024-12-23 11:00] LABS: INR 0.94 (0.9-1.1); Prothrombin Time 10.5 seconds (10.1-12.5)
[2024-12-23 11:09] LABS: Alanine Aminotransferase 14 U/L (12-78); Albumin Level 4.4 g/dl (3.5-5.0); Alkaline Phosphatase 73 U/L (38-126); Anion Gap 10.2 mEq/L (5-15); Aspartate Amino Transferase 20 U/L (17-59); Bilirubin,Direct 0.1 mg/dl (0.0-0.4); Bilirubin,Indirect 0.4 mg/dL (0.0-0.9); Bilirubin,Total 0.5 mg/dl (0.2-1.3); Bilirubin,Unconjugated 0.3 mg/dL (0.0-1.1); Blood Urea Nitrogen 19 mg/dl (9-20); Calcium 9.2 mg/dl (8.4-10.2); Carbon Dioxide 27 mmol/L (22.0-30.0); Chloride 105 mmol/L (98-107); Creatinine,Serum 0.80 mg/dl (0.66-1.25); Estimated Glomerular Filt Rate 107 ml/min (>60); GFR (African American) 129 ML/MIN (>60); Glucose 88 mg/dl (74-100); Magnesium 1.2 mg/dl (1.6-2.3); Phosphorous 5.2 mg/dl (2.5-4.5); Potassium 4.2 mmoL/L (3.5-5.1); Sodium 138 mmol/L (136-145); Total Protein,Serum 6.2 g/dl (6.3-8.2)
== END 2024-12-23 23:59 | disposition home or self-care (01) ==
LOC: LAB 09:49
PROVIDERS: PCP Nurse Practitioner Family; Visit Provider Surgery
DX: D84.9 Immunodeficiency, unspecified (principal); K74.60 Unspecified cirrhosis of liver; R18.8 Other ascites; Z94.0 Kidney transplant status; Z94.4 Liver transplant status; Z20.828 Contact with and (suspected) exposure to other viral communicable diseases; Z79.60 Long term (current) use of unspecified immunomodulators and immunosuppressants
CPT/HCPCS: 36415; 80069; 80076; 80197; 83735; 85025; 85610

== ENCOUNTER 2024-12-31 09:37 | Outpatient (CLI) | payer OTHER, SELFPAY ==
--- OUTSIDE RECORDS SUMMARY | 2024-10-25 20:46 | XMS_ITS | Encounter Summary ---
Author Organization [facility] Address [address] [place] [address] Care Team Providers Care Electrotype Servicer Name Role Phone Enedina Mcguire NP Primary Care Provider + [phone] Alicia Pantoja RN Unavailable Unavail able Source [...] release of HIV test results or diagnoses. [id number] Reason for Referral * Surgical (Routine) - Authorized Specialty Diagnoses / Procedures Referred By Shane hernadez Referred To Contact Surgery Diagnoses Acute kidney injury superimposed on CKD (CMS-HCC) Procedures Case request operating room: TRANSPLANT KIDNEY with bile duct reconstruction Sveta Judge MD [address] [facility] [address] Surgery [place] [address] Phone: tel: fax: Referral ID Status Reason Start Date Expiration Date V isits Requested Visits Authorized [id number] Authorized 10/26/2024 04/24/2025 1 1 Reason for Visit * Auth/Cert (Routine) Specialty Diagnoses / Procedures Referred By Shane hernadez Referred To Contact Surgical Intensive Care Diagnoses Liver transplant recipient (CMS-HCC) cirrhosis and CKD Procedures LIVER-KIDNEY TRANSPLANT [facility] [address] [place] [address] Phone: tel: Referral ID Status Reason Start Date Expiration Date Visits Re quested Visits Authorized [id number] 1 1 Encounter Details Date Type Department Care Team (Latest Contact Info) Description 10/25/2024 8:46 PM EDT - 11/02/2024 6:23 PM EDT Hospital Encounter [address] [place] [address] Harvey Domínguez III, MD [address] [facility] [address] Transplant [place] [address] Lydia Sanchez MD [address] [facility] Liver/[place] [address] Acute kidney injury superimposed on CKD ([facility]) (Primary Dx); Prophylactic antibiotic; Prolonged QT interval; Immunosuppression ([facility]); Abdominal pain, unspecified abdominal location [...] Recorded In the past 12 months has [employer], [employer], or water [employer] threatened to shut off services in your [...] living in a intermediate (including now)? No 10/29/2024 Yearly Questionnaire Answer [...] Plata MD - 11/02/2024 2:04 PM EDT [facility] Liver Transplant Surgical Service Inpatient Discharge Summary Patient: Blair Gilbert : 1985 CSN: [id number] Date of Admission: 10/25/2024 Date of Discharge: [...] Case IDs Date Procedure Surgeon Location Status [id number] 10/25/24 LIVER TRANSPLANT Harvey Domínguez III, MD OR Comp [id number] 10/27/24 Donor Kidney Transplant , Back Bench [...] EXAM: US ABDOMEN LIMITED EXAM: US DUPLEX [id number] COMPLETE INDICATION: Post-op liver transplant COMPARISON: None [...] visualized secondary to poor acoustic windows. The rampart right kidney measures 11.6 cm in length. [...] 30 tablet Refills: 0 naloxone 4 mg/actuation Oktaha Commonly known as: NARCAN Apply 1 spray [...] Your Medications These medications were sent to [facility] [address] [address] mycophenolate 250 mg capsule tacrolimus 1 MG capsule These medications were sent to [facility] [address] [facility] [address] Hours: Sunday - Sunday: 8:00AM - 6:00PM [...] Case IDs Date Procedure Surgeon Location Status [id number] 10/25/24 LIVER TRANSPLANT Harvey Domínguez III, MD OR Comp [id number] 10/27/24 Donor Kidney Transplant , Back Bench [...] discharge. NEURO/PAIN - Patient placed on Dilaudid HEAT AND FROST INSULATOR once extubated, then transitioned to multi-modal pain [...] spontaneously. Post void residual was WNL. Ureteral stentis scheduled for removal on 11/25 [facility] [place] evaluated patient and recommended Home PT/OT, outpatient PT/OT only available. ENDO - A1C is 5.0. Pt was not on diabetic regimen prior to arrival. Patient developed steroid-induced hyperglycemia 2/2 steroid regimen. Discharged home on the following regimen: HDSSI. Patient met w/ clinical document improvement educator prior to discharge. HEME - Post-operatively, [...] Patient and family received post-transplant education from public relations coordinator as well as medication teaching from [...] Department Center 11/04/2024 8:40 AM LTRA SURGERY, [facility] LTRA HOX [facility] 11/04/2024 10:10 AM LTRA HEPATORENAL [facility] LTRA HOX HOX 11/25/2024 9:00 AM NAA Merida [facility] URO MAB MAB 12/02/2024 2:00 PM Bossman Huffman MD [facility] MARIANGEL MAB MAB 02/25/2025 10:50 AM Bruno Gonzalez MD KTSP HOX HOX Kenyettafahad Hartman, MS-4 [facility] SHAY PLATA MD 11/02/2024 12:50 [...] up appointments. Diet: Regular diet Drain/Dressing/Wound Care: [place] will be removed in clinic approximately 3-4 [...] kept under 2 gm/day. Please discuss withyour sterile process coordinator if you have any question about appropriate dose to take. Other Instructions: Call post-liver transplant clinic with questions [phone] or call [facility] at [phone] and ask for the liver public relations coordinator line production cook if you experience any of the following: [...] Department Center 11/04/2024 8:40 AM LTRA SURGERY, [facility] LTRA [facility] 11/04/2024 10:10 AM LTRA HEPATORENAL [facility] LTRA [facility] 11/25/2024 9:00 AM NAA Merida [facility] URO MAB MAB 12/02/2024 2:00 PM Bossman Huffman MD [facility] MARIANGEL MAB MAB 02/25/2025 10:50 AM Bruno Gonzalez MD KTSP [facility] documented in this encounter Medications at Time of Discharge alcohol swabs PadM Use as instructed. 200 each 1 11/02/2024 10:20 AM EDT 10/27/2024 levothyroxine (SYNTHROID) 75 MCG tablet Take 1 tablet (75 mcg total) by mouth every morning before breakfast. loratadine (CLARITIN) 10 mg tablet Take 1 tablet (10 mg total) by mouth daily as needed for Allergies (itching). 30 tablet 10/17/2024 10:24 AM EDT 10/17/2024 naloxone (NARCAN) 4 mg/actuation Oktaha Apply 1 spray in one nostril if needed. Call 911. May repeat dose in other nostril if no response in 3 minutes. 2 each 1 10/17/2024 10:25 AM EDT 10/17/2024 polyethylene glycol (GLYCOLAX) 17 gram/dose powder Mix [...] tablet 11/02/2024 10:20 AM EDT 11/02/2024 5 blood sugar diagnostic (GLUCOSE BLOOD) [facility] Use to test blood sugar up to 4 times a day. 100 strip 11 11/02/2024 10:20 AM EDT 10/27/2024 5 blood-glucose meter (TRUE METRIX GLUCOSE METER) [facility] Use to test blood sugar up to 4 times a day. 1 each 11/02/2024 10:20 AM EDT 10/27/2024 5 ergocalciferol (ERGOCALCIFEROL) 1,250 mcg (50,000 unit) [...] 24 tablet 11/02/2024 10:20 AM EDT 11/02/2024 FLUoxetine (PROZAC) 20 MG capsule Take 1 capsule (20 mg total) by mouth daily. 30 capsule 2 10/17/2024 10:24 AM EDT 10/17/2024 gabapentin (NEURONTIN) 100 MG capsule Take 1 capsule (100 mg total) by mouth 3 times a day. 90 capsule 11/02/2024 10:20 AM EDT 10/31/2024 5 HYDROmorphone (DILAUDID) 2 MG tabletIndications :Abdominal pain, unspecified abdominal location Take 1 tablet (2 mg total) by mouth every 6 hours as needed for up to 7 days. 28 tablet 11/02/2024 10:20 AM EDT 10/31/2024 5 insulin aspart, niacinamide, (FIASP FLEXTOUCH U-100 INSULIN) 100 unit/mL (3 mL) InPn Administer insulin with meals per sliding scale: Blood glucose 150-199 mg/dL =2 units, Blood glucose 200-249 mg/dL =4 units, Blood glucose 250-299 mg/dL =7 units, Blood glucose 300-349 mg/dL =10 units, Blood glucose greater than 349 mg/dL = 12 units 15 mL 2 11/02/2024 10:20 AM EDT 10/27/2024 5 lancets (ACCU-CHEK SOFTCLIX LANCETS) [facility] Use to test blood sugar up to 4 times a day. 100 each 11 11/02/2024 10:20 AM EDT 10/27/2024 5 linezolid (ZYVOX) 600 mg tablet Take 1 tablet (600 mg total) by mouth 2 times a day. 28 tablet 11/02/2024 3:06 PM EDT 11/02/2024 methocarbamoL (ROBAXIN) 500 MG tablet Take 2 tablets (1,000 mg total) by mouth 3 times a day. 180 tablet 11/02/2024 10:20 AM EDT 10/30/2024 5 mycophenolate (CELLCEPT) 250 mg capsule Take 2 capsules (500 mg total) by mouth 2 times a day. 120 capsule 5 10/27/2024 5 NIFEdipine (PROCARDIA-XL) 30 MG (OSM) 24 hr tablet Take 1 tablet (30 mg total) by mouth daily. 30 tablet 11/02/2024 10:20 AM EDT 11/02/2024 5 pen needle, diabetic 32 gauge x /32 Ndle For use with insulin pen. Use as instructed. 100 each 2 11/02/2024 10:20 AM EDT 10/27/2024 5 predniSONE (DELTASONE) 5 MG tablet Take [...] tacrolimus and mycophenolate which were dispensed through [facility] per insurance requirements. Patient's confirms those [...] fair Expected caregiver involvement?: is primary med resident care manager Need for additional education in clinic?: routine reinforcement only Future medications to be obtained from, if known (select one): Tac/MMF to be filled from [facility] Financial concerns (if any): no Discharge Medication List as of 11/02/2024 5:17 PM START taking these medications Details acetaminophen (TYLENOL) 325 MG tablet Take 3 tablets (975 mg total) by mouth every 8 hours., Starting Sun10/27/2024, Normal, Disp-200 tablet, R-0 alcohol swabs PadM Use as instructed., Normal, Disp-200 each, R-1 blood sugar diagnostic (GLUCOSE BLOOD) Strp Use to test blood sugar up to 4 times a day., Normal, Disp-100 strip, R-11 blood-glucose meter (TRUE METRIX GLUCOSE METER) Misc [...] Disp-15 mL, R-2 lancets (ACCU-CHEK SOFTCLIX LANCETS) [facility] Use to test blood sugar up to [...] Disp-30 tablet, R-0 naloxone (NARCAN) 4 mg/actuation Oktaha Apply 1 spray in one nostril if [...] Solid Organ Transplant Clinical Specialist Contact via [employer] Secure Chat * Froylan Hendrickson MD - 11/01/2024 8:04 AM EDT Liver Transplant Surgery Progress Note Name: Blair Gilbert CSN: [id number] Date: 11/01/2024 8:06 AM OR Date: 10/25/2024 [...] at 10/31/2024 4:38 PM EDT US Duplex Crb-Wil-Mjjkgvy Comp Result Date: 10/31/2024 IMPRESSION: RIGHT UPPER [...] 10/25/2024 - 10/27/2024. Plan: Liver transplant recipient ([facility]) [Z94.4] Neuro: - Multimodal pain [...] 3:24 PM EDT TXP - Follow Up [facility] Medical Nutrition Therapy Transplant Brief [...] Boost VHC- very high calorie protein supplement ([facility] only) Pertinent Information: Pt seen for [...] Based on DBW of 93.1 kg Kcals/day: 4069-0939 (25-30 kcals/kg) Protein g/day: 140-190 (1.5-2.0 g/kg) [...] Dietitian - Solid Organ Transplant Contact via Vinfolio Chat * Keon Dobson - 10/31/2024 2:35 PM EDT [facility] Spiritual Care Volunteer Visit PATIENT NAME: Blair Gilbert ROOM:8025/U8025 [place] Affiliation:Yazdanism Blair Gilbert was visited by a volunteer today. No needs requiring a visit from a staff manager dialysis were expressed at that time. Care Provided: Communion, Prayer/ blessing Please page our service at [phone] as needs arise for patient and/or family. Fr Dean Dobson Yazdanism manager dialysis Spiritual Care Dept * Brittany Horne PT - 10/31/2024 1:42 PM EDT Physical Therapy Reason Patient Not Seen Name: Blair Gilbert : 1985 Attending Physician: Lydia Sanchez MD Admission Diagnosis: Liver transplant recipient (CMS-HCC) [Z94.4] Date: 10/31/2024 Precautions: Precautions: none Reviewed [...] transplant recipient (CMS-HCC) [Z94.4] Date: 10/31/2024 Room: 8025/8025 Reviewed Pertinent hospital course: Yes Hospital Course [...] issued by OT: Long-handled sponge, Sock aid, Rail Bender, Other (comment) Equipment issued by OT comment: leg brick burner Assessment Assessment: Decreased ADL status, Decreased IADLs, [...] IADL task (Goal met and continued 10/31) Medical Lab Tech Instructor Goal : Pt will complete bathing assessment and transfer prison goal to be met in: 2 weeks [...] List Diagnosis Decompensated cirrhosis ([facility]) Acute kidney injury superimposed on CKD ([facility] [...] 3 shifts: Date 10/30/24699 - 10/31/2465810/31/24699 - 11/01/24658 Shift 0423-9994 4587-5720 2888-3874 24 Hour Total 5422-5134 4119-9314 2258-5965 24 Hour Total INTAKE P.O. 240 240 P.O. 240 240 Shift Total(mL/kg) 240(1.9) 240(1.9) OUTPUT Urine(mL/kg/hr) 1850(1.8) 600(0.6) 600(0.6) 3050(1) 350 350 Urine 800 131 156 1624 350 350 Urine Occurrence 2 x 2 [...] with further concerns Lavell Kramer MD 10/31/[phone] * Priti Geiger CNP - 10/31/2024 10:06 AM EDT Liver Transplant Surgery Progress Note Name: Blair Gilbert CSN: [id number] Date: 10/31/2024 10:06 AM OR Date: 10/25/2024 [...] R nia drain with serosanguinous fluid, L nai with thinning bloody fluid. Abdomen is moderately-distended, [...] 10/28/24 1109 LACTATE 0.3* Imaging US Duplex Zum-Srg-Jrheuah Comp Result Date: 10/28/2024 IMPRESSION: ABDOMINAL ULTRASOUND [...] 10/25/2024 - 10/27/2024. Plan: Liver transplant recipient ([facility]-H[facility]) [Z94.4] Neuro: - Multimodal pain [...] Lydia Sanchez MD PhD Transplant Surgery * Caronmelanie aSntos CNP - 10/31/2024 9:30 AM EDT Images from the original note were not included. Transplant Nephrology Progress Note Patient: Blair Gilbert [id number] 8025/U8025 Date of Admit: 10/25/2024. 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 Lauren Santos, DNP, FOOD SERVICE WORKER HOSPITAL, PLANT BIOLOGY PROFESSOR- Transplant Nephrology [phone] Preferred contact: secure chat The HPI, ROS, [...] 0659 10/30/24 07 - 10/31/24 0659 Shift 8351-1789 8906-6247 2437-1454 24 Hour Total 4624-2152 4801-4661 0710-3639 24 Hour Total INTAKE P.O. 240 240 480 P.O. 240 240 480 IV Piggyback 87.2 87.2 Volume (mL) (micafungin (MYCAMINE) 50 mg in sodium chloride 0.9 % 100 mL Uwuk9Xll IVPB) 87.2 87.2 Shift Total(mL/kg) 240(2) 327.2(2.7) 567.2(4.4) OUTPUT Urine(mL/kg/hr) 600(0.6) 1175(1.2) 450(0.4) 2225(0.7) 550 550 Output (mL) (IUC (Berkowitz) Triple-lumen (3-Way) 18 Fr.) 600 3407 585 9817 550 550 Drains 175 245 100 520 [...] month of prophylaxis Lavell Kramer MD 10/30/[phone] * Priti Geiger CNP - 10/30/2024 10:36 AM EDT Liver Transplant Surgery Progress Note Name: Blair Gilbert CSN: [id number] Date: 10/30/2024 10:37 AM OR Date: 10/25/2024 [...] PROTIME 15.2* 14.6 14.3 Recent Labs 10/28/24 1109 10/29/24 0507 10/30/24 0541 NA 144 144 140 K 3.4* 3.8 3.8 CL 112* 113* 111* CO2 22 17* 17* BUN 57* 57* 62* CREATININE 2.01* 1.93* 1.96* CALCIUM 8.8 9.3 9.0 MG 2.1 2.1 2.2 PHOS 4.0 4.8* 4.6 GLUCOSE 108* 110* 116* Recent Labs 10/27/24 1741 10/28/24 1109 LACTATE 0.5 0.3* Imaging US Duplex Vov-Dkj-Bzgucsr Comp Result Date: 10/28/2024 IMPRESSION: ABDOMINAL ULTRASOUND [...] 10/25/2024 - 10/27/2024. Plan: Liver transplant recipient ([facility]) [Z94.4] Neuro: - Multimodal pain [...] MD PhD Transplant Surgery * Caron Santos, EZEKIEL - 10/30/2024 10:00 AM EDT Images from the original note were not included. Transplant Nephrology Progress Note Patient: Blair Gilbert [id number] 8025/U8025 Date of Admit: 10/25/2024. 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 Lauren Santos, DNP, FOOD SERVICE WORKER HOSPITAL, PLANT BIOLOGY PROFESSOR- Transplant Nephrology [phone] Preferred contact: secure chat The HPI, ROS, [...] seen, examined, and discussed with EZEKIEL on 10/30/2024. reviewed the chart including the labs and imaging studies. My additional comments below. 39 y.o. 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 Medical Nutrition Therapy Follow-Up Diet [...] I/O: +23.3L net volume. 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 Admit Weight: 270 lb (122.5 kg) Current [...] Based on DBW of 93.1 kg Kcals/day: 7138-8888 (25-30 kcals/kg) Protein g/day: 140-190 (1.5-2.0 g/kg) [...] Dietitian - Solid Organ Transplant Contact via Vinfolio Chat * Anita Crystal PT - 10/29/2024 2:04 PM EDT Physical Therapy Initial Assessment Name: Blair Gilbert : 1985 Attending Physician: Harvey Domínguez III, MD Admission Diagnosis: Liver transplant recipient (CMS-HCC) [Z94.4] Date: 10/29/2024 Room: [place] [address] [address] Reviewed Pertinent hospital course: Yes Hospital Course [...] Will report pain with functional mobility at: 10 or less Custodial Goal : Pt will ambulate 250' mod [...] as needed upon discharge. Time Start Time: 848 Stop Time: 926 Time Calculation (min): 38 [...] List Diagnosis Decompensated cirrhosis ([facility]) Acute kidney injury superimposed on CKD ([facility]) Alcohol use disorder Metabolic encephalopathy Hypertension Other hyperlipidemia Thrombocytopenia ([facility]) Renal mass, left Abdominal pain Hypokalemia CKD (chronic kidney disease) stage 4, GFR 15-29 ml/min ([facility]) Metabolic acidosis with normal anion gap and bicarbonate losses GERD (gastroesophageal reflux disease) Hypothyroidism Itching Anemia BRBPR (bright red blood per rectum) SBP (spontaneous bacterial peritonitis) ([facility]) C Diff Diarrhea C. difficile diarrhea Neck pain with history of cervical spinal surgery * Shanel Pabon OT - 10/29/2024 1:23 PM EDT Occupational Therapy Initial Assessment Name: Blair Gilbert : 1985 Attending Physician: Harvey Domínguez III, MD Admission Diagnosis: Liver transplant recipient ([facility]) [Z94.4] Date: 10/29/2024 Room: [place] [address] [address] Reviewed Pertinent hospital course: Yes Hospital Course [...] Intervention(s): Ambulation/increased activity;Repositioned Therapist reported pain to: test data developer Oxygen Supplemental Oxygen Supplemental Oxygen: None (Room [...] distance ambulation in prep for IADL task Medical Lab Tech Instructor Goal : Pt will complete bathing assessment and transfer termite control service representative goal to be met in: 2 weeks [...] List Diagnosis Decompensated cirrhosis ([facility]) Acute kidney injury superimposed on CKD ([facility]) Alcohol use disorder Metabolic encephalopathy Hypertension Other hyperlipidemia Thrombocytopenia ([facility]) Renal mass, left Abdominal pain Hypokalemia CKD (chronic kidney disease) stage 4, GFR 15-29 ml/min ([facility]) Metabolic acidosis with normal anion gap and bicarbonate losses GERD (gastroesophageal reflux disease) Hypothyroidism Itching Anemia BRBPR (bright red blood per rectum) SBP (spontaneous bacterial peritonitis) ([facility]) C Diff Diarrhea C. difficile diarrhea Neck pain with history of cervical spinal surgery * Caron Santos CNP - 10/29/2024 10:30 AM EDT Images from the original note were not included. Transplant Nephrology Progress Note Patient: Blair Gilbert [id number] [facility]28[facility] Date of Admit: 10/25/2024. LOS: 4 days. 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 Lauren Santos, SAMSON, FOOD SERVICE WORKER HOSPITAL, PLANT BIOLOGY PROFESSOR- Transplant Nephrology [phone] Preferred contact: secure chat The HPI, ROS, [...] EDT Pt seen, examined, and discussed with ASSOCIATE ENGINEER on 10/29/2024. reviewed the chart including the labs and imaging studies. My additional comments below. 39 y.o. 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 Recent Labs 10/27/24171210/28/243 10/28/24 110 INR 1.1 1.1 1.1 PROTIME 15.2* 14.6 14.3 Recent Labs 10/28/24 04110/28/24 1109 10/29/24 0507 NA 142 144 144 K 3.5 3.4* 3.8 CL 111* 112* 113* CO2 22 22 17* BUN 58* 57* 57* CREATININE 2.24* 2.01* 1.93* CALCIUM 9.1 8.8 9.3 MG 2.2 2.1 2.1 PHOS 4.8* 4.0 4.8* GLUCOSE 103* 108* 110* Recent Labs 10/27/24 0800 10/27/24 1741 10/28/24 1109 LACTATE 0.4* 0.5 0.3* Imaging US Duplex Gai-Lrt-Ewwecyx Comp Result Date: 10/28/2024 IMPRESSION: ABDOMINAL ULTRASOUND [...] at 10/27/2024 10:38 AM EDT US Duplex Rlv-Hod-Iwevore Comp Result Date: 10/27/2024 IMPRESSION: RIGHT UPPER [...] 10/25/2024 - 10/27/2024. Plan: Liver transplant recipient ([facility]) [Z94.4] Neuro: - Multimodal pain [...] SQH, SCDs DISPO: floor KENYETTA HARTMAN, MS4 [facility] 10:08 AM 10/29/2024 Cosigned by Lydia [...] OR oxyCODONE Intake/Output last 3 shifts: Date 10/28/24699 - 10/29/2465810/29/24699 - 10/30/24 0659 Shift 8075-8057 4970-1446 3754-7523 24 Hour Total 2529-0959 4186-5707 3516-0016 24 Hour Total INTAKE P.O. 240 0 [...] IV infusion) 253.9 374.7 775.6 1404.2 Blood 0324 686 7804 Albumin 750 750 Volume (Transfuse RBC Transfusion Rate: Per dept routine) 310 310 Volume (Transfuse RBC Transfusion Rate: Per dept routine) 271 271 IV Piggyback 918.4 917 20 5912.4 Volume (mL) (micafungin (MYCAMINE) 50 mg in sodium chloride 0.9 % 100 mL Rsvm8Ibw IVPB) 99.9 99.9 Volume (mL) (albumin human [...] month of prophylaxis Lavell Kramer MD 10/29/[phone] * John Moreno MD - 10/29/2024 6:47 AM EDT SURGICAL ICU PROGRESS NOTE 10/29/2024 6:47 AM Name: Blair Gilbert CSN: [id number] HPI: Blair Gilbert is a 39 y.o. [...] packing; Surgeon: Harvey Domínguez III, MD; Location: [facility]; Service: Transplant; Laterality: N/A; Home Medications Medication [...] to 4 times a day. DEXCOM G7 CHEMICAL ENGINEER Misc Use reader as directed. DEXCOM G7 [...] times a day. naloxone (NARCAN) 4 mg/actuation Oktaha Apply 1 spray in one nostril if [...] 37 37 35 PO2ART 245* 182* 92 [id number] 22 21* 21* BEART -4.2* -4.8* -4.6* [...] at baseline or with provocation, shows no kagis-ve-qhnb atrial level shunt. - Pulmonary arteries: Systolic [...] Home pantoprazole 40mg daily, continue Last BM: WOOD CASKET MAKER - suppository today Bowel regimen: Miralax today, [...] results for input(s): TEGANGLE , TEGKTIME , CDGXFOHX24 , TEGMAXAMPL , TEGRTIME , CBMZ in [...] 3% ENDOCRINE Glucose range: Lab 10/29/24 0507 10/28/24200210/28/24 1731 10/28/24 1254 10/28/24 1109 10/28/24 0907 [...] in sodium chloride 0.9 % 100 mL Vjds4Qxk IVPB 50 mg Every 24 hours 10/27/2024 -- Admin Instructions: PROTECT FROM LIGHT FLUSH LINE w/NSS PRIOR TO ADMINISTRATION Use Npxg3Van Adapter - Mix Thoroughly Before Administration Route: [...] instability DC today Arterial Line? R radial [place]- DC today Urinary Catheter? Berkowitz - Reason: [...] BID Continuous Infusions: HYDROmorphone 6 mg/30 mL HEAT AND FROST INSULATOR norepinephrine 4 mcg/min (10/27/24 2318) sodium chloride [...] % Intake/Output last 3 shifts: Date 10/27/24 0700 - 10/28/24 0659 10/28/24 07 - 10/29/24 0659 Shift 8791-6127 4205-7237 8594-5097 24 Hour Total 7679-7542 6624-9186 8399-8018 24 Hour Total INTAKE P.O. 0 120 [...] in sodium chloride 0.9 % 100 mL Vhlm9Dgb IVPB) 100 100 Volume (mL) (albumin human 5%) 126 126 Volume (mL) (potassium chloride (KCl)/Sterile water 50 mL 20 mEq/50 mL IVPB 20 mEq) 100 100 Volume (mL) (AMPicillin 1 g in sodium chloride 0.9% 100 mL IVPB (Qljr5Ysp)) 100.1 57 42.9 200 Volume (mL) (mycophenolate (CELLCEPT) 500 mg in dextrose 5% in water (D5W) 50 mL IVPB) 50 5.3 55.3 Shift Total(mL/kg) 2079.3(17) 1161(9.5) 787.3(6.4) 4027.6(32.9) OUTPUT Urine(mL/kg/hr) 2195(2.2) 1000(1) 900(0.9) 4095(1.4) 490 490 Urine 360 360 Output (mL) (IUC (Berkowitz) Triple-lumen (3-Way) 18 Fr.) 1835 5190 223 5859 490 490 Emesis/NG output 50 50 Drainage [...] to person, place, and time. Labs: Lab 10/28/24 041 WBC 4.5 HEMOGLOBIN 7.3* HEMATOCRIT 21.0* MEAN CORPUSCULAR VOLUME 87.8 PLATELETS 38* Lab 10/28/24412 SODIUM 142 POTASSIUM 3.5 CHLORIDE 111* CO2 22 BUN 58* CREATININE 2.24* GLUCOSE 103* CALCIUM 9.1 MAGNESIUM 2.2 PHOSPHORUS 4.8* Lab 10/28/24 041 ALK PHOS 26* AST 44* ALT 101* BILIRUBIN TOTAL 2.3* BILIRUBIN DIRECT 1.67* Lab 10/28/24 0413 10/25/24 2343 10/25/24 2217 PROTHROMBIN TIME 14.6 < > 21.7* INR [...] month of prophylaxis Lavell Kramer MD 10/28/[phone] * Caron Santos CNP - 10/28/2024 9:00 AM EDT Images from the original note were not included. Transplant Nephrology Progress Note Patient: Blair Gilbert [id number] SICU-28/USIC-28 Date of Admit: 10/25/2024. 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 Lauren Santos, DNP, [facility], PLANT BIOLOGY PROFESSOR- Transplant Nephrology [phone] Preferred contact: secure chat The HPI, ROS, [...] Surgery Progress Note Name: Blair Gilbert CSN: [id number] Date: 10/28/2024 11:05 AM OR Date: 10/25/2024 - 10/27/2024 Subjective: 1 Day Post-Op Received one unit pRBCs overnight On low dose levo this morning Increasing tachycardia Reports worsening pain, on HEAT AND FROST INSULATOR Tolerated sips of clears No nausea/vomiting, no [...] Oral BID Continuous: HYDROmorphone 6 mg/30 mL HEAT AND FROST INSULATOR norepinephrine Stopped (10/28/24 0637) sodium chloride 0.9 [...] at 10/27/2024 10:38 AM EDT US Duplex Fui-Lpt-Tgtbfuz Comp Result Date: 10/27/2024 IMPRESSION: RIGHT UPPER [...] 10/25/2024 - 10/27/2024. Plan: Liver transplant recipient ([facility]) [Z94.4] Neuro: - Multimodal pain control: dilaudid HEAT AND FROST INSULATOR, tylenol, robaxin. PRN dilaudid for breakthrough CV: [...] 2 mg BID PPX: SQH, SCDs DISPO: SICNevin PLATA MD, MS4 [facility] General Surgery 11:05 AM 10/28/2024 Cosigned by Lydia [...] 10/28/2024 6:17 AM Name: Blair Gilbert CSN: [id number] HPI: Blair Gilbert is a 39 y.o. [...] to 4 times a day. DEXCOM G7 CHEMICAL ENGINEER Misc Use reader as directed. DEXCOM G7 [...] times a day. naloxone (NARCAN) 4 mg/actuation Oktaha Apply 1 spray in one nostril if [...] Oral BID Continuous: HYDROmorphone 6 mg/30 mL HEAT AND FROST INSULATOR insulin regular in 0.9 % sodium chloride [...] 37 37 35 PO2ART 245* 182* 92 EVQ1SXH 22 21* 21* BEART -4.2* -4.8* -4.6* [...] at baseline or with provocation, shows no gawuw-fs-cbvn atrial level shunt. - Pulmonary arteries: Systolic [...] while intubated,convert to PO today Last BM: WOOD CASKET MAKER Bowel regimen: Miralax today, hold senna til [...] ml IV Fluids: HYDROmorphone 6 mg/30 mL HEAT AND FROST INSULATOR insulin regular in 0.9 % sodium chloride, Last Rate: 2.5 Units/hr (10/27/24 190) norepinephrine, Last Rate: 4 mcg/min (10/27/24 2318) [...] last 72 hours. Recent Labs 10/27/24 0816 10/27/24171210/28/24 0413 INR 1.2* 1.1 1.1 PROTIME 16.2* 15.2* 14.6 No results for input(s): TEGANGLE , TEGKTIME , ESMLTASY39 , TEGMAXAMPL , TEGRTIME , CBMZ in [...] insulin last 24 hours - Today NPH /, 4 units lispro with meals,HDSSI # Hypothyroidism [...] in sodium chloride 0.9% 100 mL IVPB (Qzvr1Swn) (Completed) 1 g Every 6 hours scheduled 10/26/2024 10/28/2024 Admin Instructions: Dosage may need to be adjusted for renal dysfunction. Full dose is 1g IV q6h Use Vojz8Awe Adapter - Mix Thoroughly Before Administration Notes to Pharmacy: On small order cutter estimated creatinine clearance is 35.9 mL/min (A) [...] in sodium chloride 0.9 % 100 mL Nuew7Rcu IVPB 50 mg Every 24 hours 10/27/2024 -- Admin Instructions: PROTECT FROM LIGHT FLUSH LINE w/NSS PRIOR TO ADMINISTRATION Use Kiix2Qfs Adapter - Mix Thoroughly Before Administration Route: [...] month [] 21. 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 Hillary Fernandes PharmD, TXP Solid Organ Transplant Clinical Specialist Contact via Vinfolio Secure Chat Preferred O. [phone] * Chinedu Almeida RRT - 10/27/2024 1:10 PM EDT Patient extubated [...] Yes MD Order No SBT No Yes Nir Coma Scale > 8 Yes Lab Results Component Value Date PHART 7.36 10/27/2024 PCO2 37 10/27/2024 PO2ART 245 (H) 10/27/2024 WLF2VPJ 22 10/27/2024 BEART -4.2 (L) 10/27/2024 RAN9JLX 96.5 10/27/2024 F9ZWMSGT 100 10/27/2024 Based on this SBT assessment [...] Surgery Progress Note Name: Blair Gilbert CSN: [id number] Date: 10/27/2024 11:40 AM OR Date: 10/25/2024 - 10/27/2024 Subjective: * Day of Surgery * Remains intubated in SICU Sedated but appropriately nods to questions No acute distress Objective: BP 100/48 Pulse 89 Temp 99 ??F (37.2 ??C) ([place]) Resp 9 Ht 6' 4 (1.93 m) [...] at 10/27/2024 10:38 AM EDT US Duplex Tvk-Emz-Aihnnan Comp Result Date: 10/27/2024 IMPRESSION: RIGHT UPPER [...] 10/27/2024. Problem List[1] Plan: Liver transplant recipient ([facility]) [Z94.4] Neuro: - Propofol/fentanyl CV: [...] DISPO: SICU KENYETTA HARTMAN, MS4 [facility] 11:40 AM 10/27/2024 [1] Patient Active Problem List Diagnosis Decompensated cirrhosis ([facility]) Acute kidney injury superimposed on CKD ([facility]) Alcohol use disorder Metabolic encephalopathy Hypertension Other hyperlipidemia Thrombocytopenia ([facility]) Renal mass, left Abdominal pain Hypokalemia CKD [...] III, MD Transplant Surgery (cell) * Chinedu Almeida RRT - 10/27/2024 11:14 AM EDT Placed on [...] 10/27/2024 7:16 AM Name: Blair Gilbert CSN: [id number] HPI: Blair Gilbert is a 39 y.o. [...] for 30 days. FREESTYLE NIDA 3 READER Mis Use 1 each as directed Use as directed. insulin lispro 100 unit/mL InPn Administer insulin with meals per sliding scale: Blood glucose 150-199 mg/dL =2 units, Blood glucose 200-249 mg/dL =4 units, Blood glucose 250-299 mg/dL =7 units, Blood glucose 300-349 mg/dL =10 units, Blood glucose greater than 349 mg/dL = 12 units insulin NPH isoph U-100 human 100 unit/mL (3 mL) InPn Inject 5 Units subcutaneously in the morning and at bedtime. lancets [facility] Use to test blood sugar up to 4 times a day. Dx: 9.65. Brand per pharmacy / insurance preference. methocarbamoL (ROBAXIN) 500 MG tablet Take 1 tablet (500 mg total) by mouth 3 times a day. mycophenolate (CELLCEPT) 250 mg capsule Take 2 capsules (500 mg total) by mouth 2 times a day. naloxone (NARCAN) 4 mg/actuation Oktaha Apply 1 spray in one nostril if [...] found. Blood Gas Measurements pH: (!) 7.32 (10/27/2412) PCO2: 37 (10/27/2412) PO2: (!) 137 (10/27/2412) HCO3: (!) 20 (10/27/2412) Base Excess: (!) -6.4 (10/27/2412) SaO2: 100 (10/27/2412) Recent Labs 10/26/24 0610 10/26/24 1048 10/27/2412 PHART 7.27* 7.37 7.32* PCO2 47* 36 37 PO2ART 127* 91 137* YCY8IIH 21* 22 20* BEART -5.4* -3.9* -6.4* [...] at baseline or with provocation, shows no ldaws-km-dnbd atrial level shunt. - Pulmonary arteries: Systolic [...] IV pantoprazole while intubated, NPO Last BM: WOOD CASKET MAKER Bowel regimen: Senna/Miralax when able Nausea: Zofran [...] 10/27/2024 0715 Gross per 24 hour Intake 61785.82 ml Output 7060 ml Net 6224.82 ml IV Fluids: angiotensin II (GIAPREZA) 0.005 mg/mL in sodium chloride 0.9 % 500 mL infusion, Last Rate: Stopped (10/27/24 0500) EPINEPHrine (ADRENALIN) 10 mg in sodium chloride 0.9 % 250 mL infusion, Last Rate: Stopped (10/26/24 1251) fentanyl (SUBLIMAZE) IV infusion, Last Rate: 150 mcg/hr (10/26/24 223) insulin regular in 0.9 % sodium chloride, Last Rate: 2.5 Units/hr (10/27/24 0458) norepinephrine, Last Rate: 10 mcg/min (10/27/24 07) propofol, Last Rate: 30 mcg/kg/min (10/27/24 07) sodium chloride 0.9 %, Last Rate: Stopped (10/27/24 025) sodium chloride 0.9 %, Last Rate: Stopped (10/27/24251) sodium chloride 0.9 %, Last Rate: Stopped (10/27/24251) vasopressin, Last Rate: 0.03 Units/min (10/27/24 0140) A/P: - Goal UOP >0.5 cc/kg/hr - Strict I/Os - Manual Electrolyte Replacement - Renal labs per protocol - Post op Hypokalemia - Chronic - on PO K at baseline - Needs aggressive replacement - resolved RENAL/ Recent Labs 10/26/24 1048 10/26/24 1642 10/27/24 0013 BUN 61* 63* 64* CREATININE 2.78* [...] A/P: ADDY HEMATOLOGIC Labs: Recent Labs 10/26/24 1048 10/26/24 1642 10/27/24 0013 WBC 17.3* 10.0 5.0 HGB 12.8* 10.5* 8.5* HCT 37.2* 30.2* 23.9* MCV 88.3 87.7 88.5 PLT 109* 48* 35* No results for input(s): ANTIXALMWHEP in the last 72 hours. Recent Labs 10/26/24 1048 10/26/24 1642 10/27/24 0013 INR 2.0* 1.7* 1.5* PROTIME 23.0* 20.3* 18.6* No results for input(s): TEGANGLE , TEGKTIME , SEIJGGXC29 , TEGMAXAMPL , TEGRTIME , CBMZ in [...] 113* < > -- < > -- < [...] in sodium chloride 0.9% 100 mL IVPB (Drne9Kpl) 1 g Every 6 hours scheduled Admin Instructions: Dosage may need to be adjusted for renal dysfunction. Full dose is 1g IV q6h Use Zqob5Mke Adapter - Mix Thoroughly Before Administration Notes to Pharmacy: On small order cutter estimated creatinine clearance is 35.9 mL/min (A) (based on SCr of 3.87 mg/dL (H)). Route: Intravenous Linked Group 1: Placed in And Linked Group cefTRIAXone (ROCEPHIN) 2 g in sodium chloride 0.9 % 100 mL Gmcv9Onz Continuous - One Step Medications Only 10/27/2024 [...] R IJ Mac Arterial Line? R radial [place] Urinary Catheter? Berkowitz - Reason: Adequate I/O [...] (See Comments) Became Manic * Hillary Fernandes, PharmD - 10/27/2024 6:59 AM EDT Transplant Pharmacy [...] Solid Organ Transplant Clinical Specialist Contact via Vinfolio Secure Chat Preferred * Simeon Guzman RN - 10/27/2024 2:40 AM EDT Pt was taken to the OR by OR staff. Pt left in B upper extremity limb restraints in place. Care transferred to OR staff at this time. 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 male with [...] times a day. naloxone (NARCAN) 4 mg/actuation Oktaha Apply 1 spray in one nostril if [...] Activity: Unknown (07/14/2024) Received from [facility] Exercise Vital Sign Days of Exercise per Week: Patient unable to answer Minutes of Exercise per Session: Not on file Stress: Patient Unable To Answer (07/14/2024) Received from [facility] [employer] [place] of Occupational Health - Occupational Stress Questionnaire Feeling of Stress : Patient unable to answer Social Connections: Patient Unable To Answer (07/14/2024) Received from [facility] Social Connection and Isolation Panel [NHANES] Frequency of Communication with Friends and Family: Patient unable to answer Frequency of Social Gatherings with Friends and Family: Patient unable to answer Attends Cheondoism Services: Patient unable to answer Active Member [...] SICU post-op. LEANDRA OG MD [facility] Liver Transplant Pager: [phone] 8:24 PM 10/25/2024 Cosigned by Harvey [...] Name: Blair Gilbert Date: 1985 Billing #: [id number] Date of Procedure: 10/25/2024 Diagnosis: End Stage Renal Disease Procedure: 1. Donor Kidney Transplant 2. Back Bench Preparation Donor Kidney 3. Baseline Kidney transplant biopsy 4. Insertion of Indwelling Stent 5. Removal of Perihepatic packing Surgeons * Flaquito Ba MD Senior Security Engineer MD Shayan Findings: Low Hockey stick incision [...] Operative Times: Cross clamp on donor: 10/25/24 1926 Incision on recipient: 10/25/24 0325 Kidney taken [...] donor was ABO O and UNOS ID [id number], Match Run [id number] ([facility]). This donor was a Donor after cardiac [...] was then wanded with the lap detection assistant laboratory director. The incision was ex tented 2 inches [...] The ureter appears to be sufficiently perfused. At this point, we performed a neoureterocystotomy over a stent. The right lateral aspect of the bladderwas exposed, and a muscular tunnel was created by incising the detrusor, thereby exposing the bladder mucosa. We measured out the adequate distance of the ureter, and ligated and divided the adventitial vessels at the level where we planned ureteral implantation. The ureter was then spatulated. We performed our cystotomy and noted release of the previously instilled bladder irrigation NS with methylene blue. Ureter passed under the cord structures. We began our anastomosis by placing 5-0 Maxon suture at the heel and toe of our anastomosis. A double J ureteral stent was then inserted into the hilum of the transplanted kidney. The other end was inserted into the bladder lumen. The Maxon sutures were tied. Each side of the anastomosis was then completed in a running fashion to create a watertight seal. A muscular tunnel was created with a running 4-0 Chromic suture loosely around the anastomosis to provide some anti reflux mechanism. Portal and MILLER flows were measured and case was passed to Dr Domínguez. Please see separately dictatednote for the bile duct reconstruction and closure. Flaquito Ba MD Transplant Surgeon tin stacker * Flaquito Ba MD - 10/27/2024 6:15 AM EDT TRANSPLANT KIDNEY with bile duct reconstruction Brief Op Note Blair Gilbert 10/27/2024 Pre-op Diagnosis: Acute kidney injury superimposed on CKD (CMS-HCC) [N17.9, N18.9] Post-op Diagnosis: same Procedure(s): TRANSPLANT KIDNEY Surgeon(s): MD Harvey Washington III, MD Anesthesia: General Endotracheal Staff: Order Desk Caller: Chinedu Quinn RN Scrub Person: ST Angela Fellow: Kemar Sahni MD 2nd Order Desk Caller: Marty Clark RN 3rd Order Desk Caller: Candis Mcdaniel RN FINDINGS Berkowitz 3 day Drains: Intraabdominal (perihepatic) UNOS ID [id number], Match Run [id number] Kid WIT 27 min Kid CIT 33 [...] (Berkowitz) Triple-lumen (3-Way) 18 Fr. (Active) Status Stanley Drainage 10/26/241999 Collection Container Standard drainage bag [...] bile duct reconstruction Brief Op Note Blair Carringtonen 10/25/2024 - 10/27/2024 Pre-op Diagnosis: ESLD Post-op Diagnosis: Same Procedure(s): Abdominal washout Removal of Perihepatic packing- 5 Raytecs 2 laps Bile Duct Anastomosis Kidney transplant Surgeon(s): MD Harvey Washington III, MD Anesthesia: General Endotracheal Staff: Order Desk Caller: Chinedu Quinn RN Relief Order Desk Caller: Michela Amos RN Relief Scrub: Stephani Blake RN Scrub Person: ST Angela Fellow: Kemar Sahni MD 2nd Order Desk Caller: Marty Clark RN 3rd Order Desk Caller: Candis Mcdaniel RN Estimated Blood Loss: 300 [...] biopsy Tissue Liver SURGICAL PATHOLOGY EXAM Harvey Domíngeuz III, MD 10/27/24 0620 C C) Left [...] (Berkowitz) Triple-lumen (3-Way) 18 Fr. (Active) Status Stanley Drainage 10/26/241999 Collection Container Standard drainage bag [...] day Drains: 2 Intraabdominal (perihepatic) UNOS ID [id number], Match Run [id number] Donor: young DCD NRP Kid WIT 27 [...] III, MD - 10/27/2024 12:00 AM EDT [facility] PATIENT NAME: BLAIR GILBERT DATE OF : 1985 CSN: [id number] PHYSICIAN: Harvey Domínguez III, MD ADMIT DATE: 10/25/2024 DICTATED BY: Harvey Domínguez III, MD SURGERY DATE: 10/27/2024 OPERATIVE REPORT SURGEON: Harvey Domínguez III, MD PIPE SMOKER MACHINE OPERATOR SURGEON: Kemar Sahni MD. PREOPERATIVE DIAGNOSIS: Open [...] were made hemostatic with the argon beam rd project manager. We assessed the flows of the portal [...] a mucocele formation. We then performed a kxmu-yw-ulli choledochocholedochostomy in an end to end fashion [...] small umbilicalhernia that was closed with a zwnlbf-uh-iobxy 0 PDS suture. At this point, we [...] operation. There were no immediate complications. MD CARLOS A HARMON III/DORIS JOB#: [id number] * Harvey Domínguez III, MD - 10/26/2024 7:00 AM EDT Patient Name: Blair Gilbert Date: 1985 Billing #: [id number] Date of Procedure: 10/25/2024 - 10/26/2024 Diagnosis: Chronic Hepatic Failure without coma Procedure: 1. Orthotopic Liver Transplant 2. Back Bench Preparation Donor Liver 3. Temporary portocaval shunt 4. Perihepatic packing for control of hemorrhage 5. Placement of external choledochal stent 6. Temporary abdominal closure Attending surgeons: Harvey Domínguez III, MD Senior Security Engineer Surgeon(s): Sveta Judge MD Findings: Whole organ placed in piggyback fashion with suprahepatic cava of donor to common orifice of all three hepatic veins for IVC anastomosis. Donor main portal vein to recipient main portal vein. Donor common hepatic artery to recipient right hepatic artery. Temporary abdominal with perihepatic packingfor control of hemorrhage. Externalization of bile duct with 8 Chinese pediatric feeding tube. Portal Flow Modulation No [...] This donor was ABO O and UNOSID [id number], Match Run [id number]. This was a 42-year-old donation after circulatory donor. Normothermic regional perfusion was utilized in the donor operation. Functional warm ischemia time was 16 minutes and NRP time was 1 hr and [...] After completion of the outflow anastomosis, a Polish clamp was placed across the donor suprahepatic [...] artery flows were then measured with the Medistem device. The portal flow was 3.4 L/min [...] do a temporary abdominal closure. An 8 Chinese pediatric feeding tube was brought through the [...] Sveta Alves III, MD Anesthesia: General Staff: Order Desk Caller: Mak Maher RN; Marty Clark RN Scrub Person: ST Angela Resident: Thuy Leon MD dairy associate: Jose Daniel Arana RRT Estimated Blood Loss: [...] (Removed) Number of days: 5 Surgery Information: -[facility]#: [id number] -ABO: O to O -Recipient: SLK candidate [...] 1:19 PM EDTAssociated Order(s): IP CONSULT TO PHARMACEUTICAL OFFICER [facility] Transplant Discharge Education Note Assessment: [...] 3 - Comprehends albarado points Elle Gomez, MSN, RN, NPD- Diabetes Education Office [phone] Schedule: M-F 8:00am-4:30pm * Ben Weiss RD - 10/27/2024 4:06 PM EDTAssociated Order(s): IP CONSULT TO NUTRITION SERVICES; IP CONSULT TO NUTRITION SERVICES TXP - Initial [facility] Medical Nutrition Therapy Reason(s) for [...] I/O: +23.2L net volume. Last BM Date: (WOOD CASKET MAKER). Admit Weight: 270 lb (122.5 kg) Current Weight: (!) 270 lb (122.5 kg) Pertinent Labs: Recent Labs 10/26/24164110/27/24 00110/27/24 1440 WBC 10.0 5.0 5.8 HGB 10.5* [...] glucose, HYDROmorphone OR HYDROmorphone, sodium chloride 0.45% (12 NS) Vital Signs: Temp: [98.2 ??F (36.8 [...] Based on DBW of 93.1 kg Kcals/day: 2841-8457 (25-30 kcals/kg) Protein g/day: 140-190 (1.5-2.0 g/kg) [...] Dietitian - Solid Organ Transplant Contact via Vinfolio Chat * Lavell Kramer MD - 10/27/2024 11:09 AM EDTAssociated Order(s): INPATIENT CONSULT TO TRANSPLANT INFECTIOUS DISEASES Infectious Disease Consultation Patient: Blair Gilbert CSN: [id number] Assessment & Plan 39 y.o. M s/p [...] blood cx's if febrile Lavell Kramer MD [phone] Chief Complaint Long Qtc History of Present [...] Activity: Unknown (07/14/2024) Received from [facility] Exercise Vital Sign Days of Exercise per Week: Patient unable to answer Minutes of Exercise per Session: Not on file Stress: Patient Unable To Answer (07/14/2024) Received from [facility] [employer] [place] [employer] Occupational Health - Occupational Stress Questionnaire Feeling of Stress : Patient unable to answer Social Connections: Patient Unable To Answer (07/14/2024) Received from [facility] Social Connection and Isolation Panel [NHANES] Frequency of Communication with Friends and Family: Patient unable to answer Frequency of Social Gatherings with Friends and Family: Patient unable to answer Attends Cheondoism Services: Patient unable to answer Active Member [...] vasculature and waveforms within normal limits. Signed: Laevll Kramer MD 10/27/2024, 10:56 AM * Caron [...] to 4 times a day. DEXCOM G7 CHEMICAL ENGINEER Misc Use reader as directed. DEXCOM G7 [...] and at bedtime. lancets (ACCU-CHEK SOFTCLIX LANCETS) [facility] Use to test blood sugar up to 4 times a day. methocarbamoL (ROBAXIN) 500 MG tablet Take 1 tablet (500 mg total) by mouth 3 times a day. mycophenolate (CELLCEPT) 250 mg capsule Take 2 capsules (500 mg total) by mouth 2 times a day. 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 KT US 10/27/24: WNL UOP: 3,075 mL B Renal [...] 10/27/2024 1500 Gross per 24 hour Intake 75617.28 ml Output 5950 ml Net 6403.28 ml Heme/Anemia: WBC: 5.8 Goal HgB 10-12 mg/dL Hgb: 7.5 Plt 50 Iron: 128 on 10/25/2024 Ferritin 623.2 on 10/25/2024 TIBC: SEE COMMENT on 10/25/2024 % Iron Saturation: SEE COMMENT on 10/25/2024 [id number]: No results found for requested labs within [...] - Monitor renal function. No indications for PRIMARY HEALTH ORGANISATION MANAGER. Good UOP - Noted KT US WNL [...] preliminary until attending attestation. Lauren Santos, [place], [facility], PLANT BIOLOGY PROFESSOR- Transplant Nephrology [phone] Preferred contact: secure chat [1] Allergies Allergen [...] Gonzalez MD, MEd, FASN * Marcellus Hebert, MANAGER SERVICES, FUNDRAISING ASSISTANT - 10/27/2024 10:21 AM EDT HEALTH Care Management/Social Work Assessment Patient Information Patient Name: Blair Gilbert Hospital Day: 2 Inpatient/Observation: Inpatient Admit Date: 10/25/2024 Admission Diagnosis: Liver transplant recipient ([facility]) [Z94.4] Attending provider: Harvey Domínguez III, MD PCP: Enedina Mcguire NP Home Pharmacy: [facility] [place] [address] [address] [facility] [address] [facility] [address] Issues related to obtaining medications: N/A Payor Information Medical Insurance Coverage: Payor: [facility] / Plan: [facility] / Product Type: *No Producttype* / Secondary Payor: N/A Functional Assessment Functional Assessment Assessment Information Obtained From:: Spouse (Ina Justin) Current Mental Status: Intubated, Unable to Assess Mental Status Prior to Admission: Unable to Assess Mental Health History: Yes (PTSD,Generalized Anxiety Disorder) Behavioral Health Agency Involvement: ( Transplant Psych) Do you need Mental Health treatment resources?: No Patient Requests Social Work Consult?: No Substance Abuse: Yes Last Substance Abuse Date: 07/09/24 Treatment History: 12 weeks of CD Treatement at [facility] Do you need Substance Abuse Treatment Resources?: [...] Was any abuse reported by patient?: No [place] Status & Connection to VA Services Status [...] resides with his spouse at their [address] in [place]. 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 Patient's LNOK:Spouse, Abdiaziz Gilbert, Patient has no current or past history of suicidal/homicidal ideation. Patient has a history of mental health diagnoses, PTSD and Generalized Anxiety Disorder. Patient is connected with TransplantPsychiatrist and prescribed Prozac. Patient has a history of alcohol use and has completed 12 weeksof CD Treatment at [facility]. Spouse explained that he will complete a [...] as appropriate. NUBIA Escalera, RONALDO Phone Number: [phone] * John Moreno MD - 10/26/2024 3:41 AM EDT SURGICAL ICU CONSULT NOTE 10/26/2024 3:41 AM Name: Blair Gilbert CSN: [id number] HPI: Blair Gilbert is a 39 y.o. [...] at 9:00 PM naloxone (NARCAN) 4 mg/actuation [place] Apply 1 spray in one nostril if [...] % 250 mL infusion 2.5 mcg/min (10/26/24 1264) insulin regular in 0.9 % sodium chloride [...] input(s): PHART , PCO2 , PO2ART , CZB0GBI , BEART in the last 72 hours. [...] at baseline or with provocation, shows no xegvu-vn-tvbi atrial level shunt. - Pulmonary arteries: Systolic [...] Exam: Abdomen soft, ND, TAC Recent Labs 10/25/247 ALKPHOS 144* ALT 23 AST 51* BILITOT [...] IV pantoprazole while intubated, NPO Last BM: WOOD CASKET MAKER Bowel regimen: Senna/Miralax when able Nausea: Zofran PRN FLUID/ELECTROLYTES Recent Labs 10/25/24 2217 NA 137 K 2.1* CL 100 CO2 20* BUN 74* CREATININE 3.87* CALCIUM 9.3 PHOS 5.9* GLUCOSE 114* Intake/Output Summary (Last 24 hours) at 10/26/2024 0341 Last data filed at 10/26/2024 0326 Gross per 24 hour Intake 89017 ml Output 675 ml Net 94127 ml IV Fluids: EPINEPHrine (ADRENALIN) 10 mg in sodium chloride 0.9 % 250 mL infusion, Last Rate: 2.5 mcg/min (10/26/24 0339) insulin regular in 0.9 % sodium chloride norepinephrine, Last Rate: 18 mcg/min (10/26/24 1083) vasopressin, Last Rate: 0.04 Units/min (10/26/24 0244) A/P: - Goal UOP >0.5 cc/kg/hr - [...] edema A/P: ADDY HEMATOLOGIC Labs: Recent Labs 10/25/24221610/25/24233910/26/243810/26/24139 WBC 6.2 -- -- -- HGB 8.3* 6.6* 7.9* 7.4* HCT 23.7* 19.0* 23.0* 22.0* MCV 98.9 -- -- -- PLT 56* -- -- -- No results for input(s): ANTIXALMWHEP in the last 72 hours. Recent Labs 10/25/242216 INR 1.8* PROTIME 21.7* No results for input(s): TEGANGLE , TEGKTIME , XAHMMQIK53 , TEGMAXAMPL , TEGRTIME , CBMZ in [...] 3% ENDOCRINE Glucose range: Lab 10/26/24 0140 10/26/249 10/25/24233910/25/242216 10/14/25 2156 10/22/24 0000 10/21/24 0000 POC GLU [...] in sodium chloride 0.9% 100 mL IVPB (Acvz0Pkw) 2 g Every 6 hours 10/26/2024 -- Admin Instructions: Use Bzpd7Lwu Adapter - Mix Thoroughly Before Administration Notes to Pharmacy: On small order cutter estimated creatinine clearance is 35.9 mL/min (A) (based on SCr of 3.87 mg/dL (H)). Route: Intravenous AMPicillin 2 g in sodium chloride 0.9% 100 mL IVPB (Hwbr6Ydm) 2 g Once 10/26/2024 -- Admin Instructions: Use Wwun1Sgf Adapter - Mix Thoroughly Before Administration Notes to Pharmacy: On small order cutter estimated creatinine clearance is 35.9 mL/min (A) (based on SCr of 3.87 mg/dL (H)). Route: Intravenous cefTRIAXone (ROCEPHIN) 2 g in sodium chloride 0.9 % 100 mL Tunz0Lhi (Completed) 2 g Once 10/25/2024 10/26/2024 Admin Instructions: Use Dubv2Jig Adapter - Mix Thoroughly Before Administration Route: [...] than 1 Arterial Line 10/25/24 Right Radial 10/25/242244 Radial less than 1 Introducer 10/25/24 Internal [...] 47 (H) 10/26/2024 PO2ART 127 (H) 10/26/2024 MBL7RWJ 21 (L) 10/26/2024 BEART -5.4 (L) 10/26/2024 YFB3OHL 94.6 (L) 10/26/2024 M0RTKFJM 98 10/26/2024 P:F ratio = 363 CARDIOVASCULAR: [...] Acute Care Surgery, and Surgical Critical Care [facility] Academic Office [phone] For Transfers, call [phone] documented in this encounter Nursing Notes * [...] Escalera, RONALDO - 10/31/2024 11:34 AM EDT [facility] Case Management/Social Work Department Progress Note Patient Information Patient Name: Blair Gilbert Hospital day: 6 Inpatient/Observation: Inpatient Level of Care: Transplant Admit date: 10/25/2024 Admission diagnosis: Liver transplant recipient (CMS-HCC) [Z94.4] PMH: has a past medical history of Alcoholic cirrhosis of liver (CMS-HCC), Esophageal varices (CMS-HCC), Hepatorenal syndrome (CMS-HCC), Hypertension, Other hyperlipidemia (07/26/2024), Renal cell carcinoma (CMS-HCC), Thrombocytopenia ([facility]), and Thyroid disease. PCP: Enedina Mcguire NP Home Pharmacy: [facility] [address] [place] [address] [place] [address] [facility] [address] [facility] [address] [facility] [place] [address] [place] [address] [facility] [id number] Medical Insurance Coverage: Payor: [facility] / Plan: [employer] / Product Type: *No Product type* / Other Pertinent Information MEREDITH received report from Transplant medical team. SW completed chart review. Per report patient is not medically ready to discharge. Patient recommended for home PT/OT and 2x weekly labs. MEREDITH followed up on C referrals and submitted a few more C referrals. Update: MEREDITH made nurse educator aware that there were no accepting C agencies([facility], [facility], [facility]) and patient would need to outpatient for PT/OT and labs. Discharge Plan Anticipated discharge plan: Home with HHC vs Home with outpatient Anticipated discharge date: 11/01 CM/MEREDITH will continue to follow and remain available for discharge planning needs. NUBIA Escalera, RONALDO Cell [phone] * Plan of Care - Paulette Flannery [...] Outcome: Progressing * Care Coordination - Citlaly Nova - 10/29/2024 1:53 PM EDT [facility] Case Management/Social Work Department Progress Note [...] disease. PCP: Enedina Mcguire NP Home Pharmacy: [facility] [address] [place] [address] [facility] [address] [facility] [address] [facility] [place] - [address] [facility] [place] [address] [facility] [place] [place] [phone] Medical Insurance Coverage: Payor: [facility] [facility] / Plan: [employer] [...] and is agreeable to a blanket referral. SW submitted blanket HHC referral to [facility] [place], [facility] [place], [facility], and [facility]. Awaiting responses. SW to followpending clearance [...] remain available for discharge planning needs. NUBIA Rhodes, FUNDRAISING ASSISTANT Inpatient Liquid Sugar Fortifier/Care Coordination [phone] * Plan of Care - Soco Yap [...] Outcome: Progressing * Care Coordination - NUBIA Escalera LSW - 10/28/2024 2:29 PM EDT [facility] Case Management/Social Work Department Progress Note [...] disease. PCP: Enedina Mcguire NP Home Pharmacy: [facility] [address] [place], [facility] [address] [address] [facility] [address] [facility] [address] [facility] [place] - [place] - [address] [place] [address] [place] [phone] Medical Insurance Coverage: Payor: [facility] [...] discharge planning needs. NUBIA Escalera, RONALDO Cell [phone] * Plan of Care - Elaine Carrillo [...] at all times. Outcome: Completed Problem: Non-violent, mrb-ynso-vybccrgjfqh restraints Description: Less restrictive alternative interventions will [...] of medical procedures, or protection of medical equipment repairer access. Outcome: Completed * Plan of Care [...] foods as appropriate. Outcome: Progressing Problem: Non-violent, vtz-kmpf-qkxinmfvdum restraints Description: Less restrictive alternative interventions will [...] of medical procedures, or protection of medical equipment repairer access. Outcome: Progressing * Plan of Care - Shanel Shen RN - 10/27/2024 9:00 AM EDT Problem: Non-violent, eja-zmfy-ltuykusmmoq restraints Description: Less restrictive alternative interventions will [...] - 10/26/2024 7:41 PM EDT Problem: Non-violent, bft-aiyp-txuyozkjsqh restraints Description: Less restrictive alternative interventions will [...] of medical procedures, or protection of medical equipment repairer access. Outcome: Not Progressing Patient in bilateral [...] restraint flowsheet for further documentation. Problem: Non-violent, kva-zezj-yqkdoptqxef restraints Description: Less restrictive alternative interventions will [...] of medical procedures, or protection of medical equipment repairer access. Outcome: Progressing * Plan of Care [...] Routine Acute kidney injury superimposed on CKD ([facility]) Release Upon Ordering for 1 Occurrences starting 10/27/2024 Fungus culture Microbiology Routine Acute kidney injury superimposed on CKD ([facility]) Release Upon Ordering for 1 Occurrences starting 10/27/2024 Routine Culture plus Stain Microbiology Routine Acute kidney injury superimposed on CKD ([facility]) Release Upon Ordering for 1 Occurrences starting 10/27/2024 Surgical Pathology Exam Pathology and Cytology Routine Acute kidney injury superimposed on CKD ([facility]) Release Upon Ordering for 1 Occurrences starting [...] Routine 10/31/2024 11:59 AM EDT US DUPLEX YKG-EVQKYB-ZVXPRRQ COMPLETE Routine 10/31/2024 10:19 AM EDT US [...] Routine 10/28/2024 5:31 PM EDT US DUPLEX FHK-PAWCKS-KZGHBDF COMPLETE STAT 10/28/2024 4:23 PM EDT US [...] Routine 10/27/2024 10:00 AM EDT US DUPLEX TQS-POBFLE-DOYOIAB COMPLETE STAT 10/27/2024 9:51 AM EDT US [...] EDT Acute kidney injury superimposed on CKD ([facility]) VT RENAL ALTRNSPLJ IMPLTJ GRF W/MALLET CUTTER NEPHRECTOMY 10/27/2024 2:32 AM EDT Acute kidney [...] - 100 mg/dL 11/02/2024 5:45 PM EDT [facility] Blood 11/02/2024 5:44 PM EDT 11/02/2024 5:45 PM EDT us Harvey Domínguez III, MD POINT OF CARE TEST ORDERABLES Final Result [facility] [address] [place] [address], [facility] * (ABNORMAL) POC Glucose Monitoring Device (11/02/2024 3:34 PM EDT) POC Glucose Monitoring Device 208(H) 70 - 100 mg/dL 11/02/2024 3:35 PM EDT [facility] Blood 11/02/2024 3:34 PM EDT 11/02/2024 3:35 PM EDT Harvey Domínguez III, MD POINT OF CARE TEST ORDERABLES Final Result Performing Organization Address City/[facility]/ZIP Co de Phone Number [facility] [address] [facility]. [address] * (ABNORMAL) POC Glucose Monitoring Device (11/02/2024 1:18 PM EDT) POC Glucose Monitoring Device 225(H) 70 - 100 mg/dL 11/02/2024 1:19 PM EDT [facility] Blood 11/02/2024 1:18 PM EDT 11/02/2024 1:19 PM EDT Harvey Domínguez III, MD POINT OF CARE TEST ORDERABLES Final Result Performing Organization Address [facility] Co de Phone Number [facility] [address] [facility]. [address] * (ABNORMAL) POC Glucose Monitoring Device (11/02/2024 8:59 AM EDT) POC Glucose Monitoring Device 129(H) 70 - 100 mg/dL 11/02/2024 9:00 AM EDT [facility] Blood 11/02/2024 8:59 AM EDT 11/02/2024 9:00 AM EDT Harvey Domínguez III, MD POINT OF CARE TEST ORDERABLES Final Result Performing Organization Address City/[facility] Co de Phone Number [facility] [address] [facility]. [address] * Tacrolimus level (11/02/2024 5:53 AM EDT) Tacrolimus (LC-MS) 7.4 3.0 - 15.0 ng/mL 11/02/2024 2:23 PM EDT [facility] Comment:Performed via liquid chromatography tandem mass spectrometry. Detection limit: 1 ng/mL. Individual target concentrations may vary due to target organ and time after transplant. This test has been developed and its performance characteristics determined by [facility] which is certified under the Clinical Laboratory [...] PharmD LAB BLOOD ORDERABLES Denisse valle Result [facility] [address] [facility] [place] [address], [facility] * (ABNORMAL) Renal Function Panel w/EGFR (11/02/2024 5:53 AM EDT) Sodium 140 133 - 146 mmol/L 11/02/2024 6:47 AM EDT [facility] Potassium 3.3(L) 3.5 - 5.3 mmol/L 11/02/2024 6:47 AM EDT [facility] Chloride 107 98 - 110 mmol/L 11/02/2024 6:47 AM EDT [facility] CO2 25 21 - 33 mmol/L 11/02/2024 6:47 AM EDT [facility] Anion Gap 8 3 - 16 mmol/L 11/02/2024 6:47 AM EDT [facility] BUN 31(H) 7 - 25 mg/dL 11/02/2024 6:47 AM EDT [facility] Creatinine 1.08 0.60 - 1.30 mg/dL 11/02/2024 6:47 AM EDT [facility] Glucose 150(H) 70 - 100 mg/dL 11/02/2024 6:47 AM EDT [facility] Calcium 7.8(L) 8.6 - 10.3 mg/dL 11/02/2024 6:47 AM EDT [facility] Phosphorus 2.0(L) 2.1 - 4.7 mg/dL 11/02/2024 6:47 AM EDT [facility] Albumin 3.2(L) 3.5 - 5.7 g/dL 11/02/2024 6:47 AM EDT [facility] Osmolality, Calculated 299 278 - 305 mOsm/kg 11/02/2024 6:47 AM EDT [facility] EGFR 88 11/02/2024 6:47 AM EDT [facility] Comment:As of [...] 5:53 AM EDT 11/02/2024 6:12 AM EDT [facility] LAB BLOOD ORDERABLES Denisse l Result Performing Organization Address [facility]/ZIP Co de Phone Number [facility] [address] * (ABNORMAL) Magnesium (11/02/2024 5:53 AM EDT) Magnesium 1.3(L) 1.5 - 2.5 mg/dL 11/02/2024 6:47 AM EDT [facility] Plasma 11/02/2024 5:53 AM EDT 11/02/2024 6:12 AM EDT [facility] LAB BLOOD ORDERABLES Denisse l Result [facility] [address] [place], [place] [address] * (ABNORMAL) Hepatic Function Panel (11/02/2024 5:53 AM EDT) Total Bilirubin 1.6(H) 0.0 - 1.5 mg/dL 11/02/2024 6:47 AM EDT [facility] Bilirubin, Direct 0.81(H) 0.00 - 0.40 mg/dL 11/02/2024 6:47 AM EDT [facility] AST 30 13 - 39 U/L 11/02/2024 6:47 AM EDT [facility] ALT 66(H) 7 - 52 U/L 11/02/2024 6:47 AM EDT [facility] Alkaline Phosphatase 126(H) 36 - 125 U/L 11/02/2024 6:47 AM EDT [facility] Total Protein 4.6(L) 6.4 - 8.9 g/dL 11/02/2024 6:47 AM EDT [facility] Albumin 3.2(L) 3.5 - 5.7 g/dL 11/02/2024 6:47 AM EDT [facility] Bilirubin, Indirect 0.79 0.00 - 1.10 mg/dL 11/02/2024 6:47 AM EDT [facility] Plasma 11/02/2024 5:53 AM EDT 11/02/2024 6:12 AM EDT us Beata Horner [facility] BLOOD ORDERABLES Denisse l Result [facility] [address] [place], [place] [address] * (ABNORMAL) CBC (11/02/2024 5:53 AM EDT) WBC 5.8 3.8 - 10.8 10E3/uL 11/02/2024 6:21 AM EDT [facility] RBC 3.12(L) 4.20 - 5.80 10E6/uL 11/02/2024 6:21 AM EDT [facility] Hemoglobin 9.2(L) 13.2 - 17.1 g/dL 11/02/2024 6:21 AM EDT [facility] Hematocrit 27.5(L) 38.5 - 50.0 % 11/02/2024 6:21 AM EDT [facility] MCV 87.9 80.0 - 100.0 fL 11/02/2024 6:21 AM EDT [facility] MCH 29.5 27.0 - 33.0 pg 11/02/2024 6:21 AM EDT [facility] MCHC 33.5 32.0 - 36.0 g/dL 11/02/2024 6:21 AM EDT [facility] RDW 17.5(H) 11.0 - 15.0 % 11/02/2024 6:21 AM EDT [facility] Platelets 61(L) 140 - 400 10E3/uL 11/02/2024 6:21 AM EDT [facility] MPV 7.9 7.5 - 11.5 fL 11/02/2024 6:21 AM EDT [facility] Whole Blood 11/02/2024 5:53 AM EDT 11/02/2024 6:12 AM EDT us Beata Horner ASSOCIATE ENGINEER LAB BLOOD ORDERABLES Denisse l Result [facility] [address] * (ABNORMAL) POC Glucose Monitoring Device (11/01/2024 9:26 PM EDT) [facility] POC Glucose Monitoring Device 199(H) 70 - 100 mg/dL 11/01/2024 9:27 PM EDT [facility] Blood 11/01/2024 9:26 PM EDT 11/01/2024 9:27 PM EDT Harvey Domínguez III, MD POINT OF CARE TEST ORDERABLES Final Result Performing Organization Address [facility]/State/ZIP Co de Phone Number [facility] [address] * (ABNORMAL) POC Glucose Monitoring Device (11/01/2024 5:04 PM EDT) [facility] POC Glucose Monitoring Device 255(H) 70 - 100 mg/dL 11/01/2024 5:05 PM EDT [facility] Blood 11/01/2024 5:04 PM EDT 11/01/2024 5:05 PM EDT Harvey Domínguez III, MD POINT OF CARE TEST ORDERABLES Final Result Performing Organization Address City/State/[facility] Co de Phone Number [facility] [address] [place], [place] [address] * (ABNORMAL) Renal Function Panel w/EGFR, STAT (11/01/2024 2:17 PM EDT) [facility] Sodium 139 133 - 146 mmol/L 11/01/2024 3:10 PM EDT [facility] Potassium 3.3(L) 3.5 - 5.3 mmol/L 11/01/2024 3:10 PM EDT [facility] Chloride 107 98 - 110 mmol/L 11/01/2024 3:10 PM EDT [facility] CO2 24 21 - 33 mmol/L 11/01/2024 3:10 PM EDT [facility] Anion Gap 8 3 - 16 mmol/L 11/01/2024 3:10 PM EDT [facility] BUN 35(H) 7 - 25 mg/dL 11/01/2024 3:10 PM EDT [facility] Creatinine 1.22 0.60 - 1.30 mg/dL 11/01/2024 3:10 PM EDT [facility] Glucose 203(H) 70 - 100 mg/dL 11/01/2024 3:10 PM EDT [facility] Calcium 8.3(L) 8.6 - 10.3 mg/dL 11/01/2024 3:10 PM EDT [facility] Phosphorus 2.2 2.1 - 4.7 mg/dL 11/01/2024 3:10 PM EDT [facility] Albumin 3.4(L) 3.5 - 5.7 g/dL 11/01/2024 3:10 PM EDT [facility] Osmolality, Calculated 302 278 - 305 mOsm/kg 11/01/2024 3:10 PM EDT [facility] EGFR 76 11/01/2024 3:10 PM EDT [facility] Comment:As of [...] Marks MD LAB BLOOD ORDERABLES Final Result [facility] [address] [place] [id number], [facility] * X-ray Portable Abdomen AP view (11/01/2024 [...] visualized. Moderate colonic stool burden. Procedure Note Edi Arredondo MD - 11/01/2024 EXAM: XR PORTABLE ABDOMEN [...] - 100 mg/dL 11/01/2024 12:23 PM EDT [facility] Blood 11/01/2024 12:2 2 PM EDT 11/01/2024 12:23 PM EDT Harvey Domínguez III, MD POINT OF CARE TEST ORDERABLES Final Result [facility] [address] [place] [address], [facility] * (ABNORMAL) POC Glucose Monitoring Device (11/01/2024 8:50 AM EDT) POC Glucose Monitoring Device 175(H) 70 - 100 mg/dL 11/01/2024 8:51 AM EDT [facility] Blood 11/01/2024 8:50 AM EDT 11/01/2024 8:51 AM EDT Harvey Domínguez III, MD POINT OF CARE TEST ORDERABLES Final Result Performing Organization Address City/[facility] Co de Phone Number [facility] [address] * Tacrolimus level (11/01/2024 6:01 AM EDT) Pathologist [facility] Tacrolimus (LC-MS) 7.5 3.0 - 15.0 ng/mL 11/01/2024 12:14 PM EDT [facility] Comment:Performed via liquid chromatography tandem mass spectrometry. Detection limit: 1 ng/mL. Individual target concentrations may vary due to target organ and time after transplant. This test has been developed and its performance characteristics determined by [facility] which is certified under the [...] Performing Organization Address City/[facility] Co de Phone Number [facility] [address] [place] [facility]. [address] * (ABNORMAL) Renal Function Panel w/EGFR (11/01/2024 6:01 AM EDT) Sodium 139 133 - 146 mmol/L 11/01/2024 6:57 AM EDT [facility] Potassium 3.3(L) 3.5 - 5.3 mmol/L 11/01/2024 6:57 AM EDT [facility] Chloride 108 98 - 110 mmol/L 11/01/2024 6:57 AM EDT [facility] CO2 22 21 - 33 mmol/L 11/01/2024 6:57 AM EDT [facility] Anion Gap 9 3 - 16 mmol/L 11/01/2024 6:57 AM EDT [facility] BUN 37(H) 7 - 25 mg/dL 11/01/2024 6:57 AM EDT [facility] Creatinine 1.30 0.60 - 1.30 mg/dL 11/01/2024 6:57 AM EDT [facility] Glucose 163(H) 70 - 100 mg/dL 11/01/2024 6:57 AM EDT [facility] Calcium 8.2(L) 8.6 - 10.3 mg/dL 11/01/2024 6:57 AM EDT [facility] Phosphorus 2.9 2.1 - 4.7 mg/dL 11/01/2024 6:57 AM EDT [facility] Albumin 3.1(L) 3.5 - 5.7 g/dL 11/01/2024 6:57 AM EDT [facility] Osmolality, Calculated 300 278 - 305 mOsm/kg 11/01/2024 6:57 AM EDT [facility] EGFR 71 11/01/2024 6:57 AM EDT [facility] Comment:As of [...] 11/01/2024 6:20 AM EDT us Beata Horner [facility] BLOOD ORDERABLES Denisse l Result [facility] [address] * Magnesium (11/01/2024 6:01 AM EDT) Magnesium 1.5 1.5 - 2.5 mg/dL 11/01/2024 6:57 AM EDT [facility] Plasma 11/01/2024 6:01 AM EDT 11/01/2024 6:20 AM EDT Beata Horner [facility] BLOOD ORDERABLES Denisse l Result [facility] [address] [facility]. [address] * (ABNORMAL) Hepatic Function Panel (11/01/2024 6:01 AM EDT) Total Bilirubin 2.0(H) 0.0 - 1.5 mg/dL 11/01/2024 6:57 AM EDT [facility] Bilirubin, Direct 1.06(H) 0.00 - 0.40 mg/dL 11/01/2024 6:57 AM EDT [facility] AST 21 13 - 39 U/L 11/01/2024 6:57 AM EDT [facility] ALT 62(H) 7 - 52 U/L 11/01/2024 6:57 AM EDT [facility] Alkaline Phosphatase 114 36 - 125 U/L 11/01/2024 6:57 AM EDT [facility] Total Protein 4.6(L) 6.4 - 8.9 g/dL 11/01/2024 6:57 AM EDT [facility] Albumin 3.1(L) 3.5 - 5.7 g/dL 11/01/2024 6:57 AM EDT [facility] Bilirubin, Indirect 0.94 0.00 - 1.10 mg/dL 11/01/2024 6:57 AM EDT [facility] Plasma 11/01/2024 6:01 AM EDT 11/01/2024 6:20 AM EDT Beata Horner ASSOCIATE ENGINEER LAB BLOOD ORDERABLES Denisse l Result [facility] [address] * (ABNORMAL) CBC (11/01/2024 6:01 AM EDT) WBC 5.9 3.8 - 10.8 10E3/uL 11/01/2024 6:29 AM EDT [facility] RBC 3.19(L) 4.20 - 5.80 10E6/uL 11/01/2024 6:29 AM EDT [facility] Hemoglobin 9.5(L) 13.2 - 17.1 g/dL 11/01/2024 6:29 AM EDT [facility] Hematocrit 27.8(L) 38.5 - 50.0 % 11/01/2024 6:29 AM EDT [facility] MCV 87.1 80.0 - 100.0 fL 11/01/2024 6:29 AM EDT [facility] MCH 29.9 27.0 - 33.0 pg 11/01/2024 6:29 AM EDT [facility] MCHC 34.3 32.0 - 36.0 g/dL 11/01/2024 6:29 AM EDT [facility] RDW 17.4(H) 11.0 - 15.0 % 11/01/2024 6:29 AM EDT [facility] Platelets 56(L) 140 - 400 10E3/uL 11/01/2024 6:29 AM EDT [facility] MPV 8.3 7.5 - 11.5 fL 11/01/2024 6:29 AM EDT [facility] Whole Blood 11/01/2024 6:01 AM EDT 11/01/2024 6:19 AM EDT Beata Horner CNP LAB BLOOD ORDERABLES Denisse l Result [facility] [address] [place] [address] * (ABNORMAL) POC Glucose Monitoring Device (10/31/2024 9:15 PM EDT) POC Glucose Monitoring Device 171(H) 70 - 100 mg/dL 10/31/2024 9:15 PM EDT [facility] Blood 10/31/2024 9:15 PM EDT 10/31/2024 9:15 PM EDT Harvey Domínguez III, MD POINT OF CARE TEST ORDERABLES Final Result Performing Organization Address City/[facility]/ZIP Co de Phone Number [facility] [address] [facility]. [address] * (ABNORMAL) POC Glucose Monitoring Device (10/31/2024 5:56 PM EDT) POC Glucose Monitoring Device 179(H) 70 - 100 mg/dL 10/31/2024 5:57 PM EDT [facility] Blood 10/31/2024 5:56 PM EDT 10/31/2024 5:57 PM EDT Harvey Domínguez III, MD POINT OF CARE TEST ORDERABLES Final Result Performing Organization Address [facility] de Phone Number [facility] [address] [facility]. [address] * CT Abdomen and Pelvis WO IV [...] Adrenal gland: No focal nodule seen. Kidneys: [place] kidneys noted with nonobstructing calcifications on the right. Findings of postsurgical changes in the left rampart kidney. Mild right hydronephrosis without an obstructive [...] lesions. Procedure Note Winnie Hollis MD - 10/31/2024 EXAM: CT ABDOMEN AND PELVIS WO IV [...] Adrenal gland: No focal nodule seen. Kidneys: [place] kidneys noted with nonobstructing calcifications on theright. Findings of postsurgical changes in the left rampart kidney. Mildright hydronephrosis without an obstructive course [...] QT: 400 ms QTc: 456 ms P Levant: 49 degrees R Levant: 3 degrees T Levant: 14 degrees Diagnosis Line: NORMAL SINUS RHYTHM ^ NORMAL ECG ^ ^ Confirmed by MD REID JAMES ([id number]) on 11/02/2024 6:56:52 AM Priti Geiger CNP ECG ORDERABLES Final Result MUSE * (ABNORMAL) Urinalysis w/Rfl to Microscopic (10/31/2024 1:18 PM EDT) Color, UA Straw Yellow,Straw 10/31/2024 1:46 PM EDT [facility] Clarity, UA Clear Clear 10/31/2024 1:46 PM EDT [facility] Specific Stanley, UA 1.013 1.005 - 1.035 10/31/2024 1:46 PM EDT [facility] pH, UA 6.5 5.0 - 8.0 10/31/2024 1:46 PM EDT [facility] Protein, UA Negative Negative mg/dL 10/31/2024 1:46 PM EDT [facility] Glucose, UA Negative Negative mg/dL 10/31/2024 1:46 PM EDT [facility] Ketones, UA Negative Negative mg/dL 10/31/2024 1:46 PM EDT [facility] Bilirubin, UA Negative Negative 10/31/2024 1:46 PM EDT [facility] Blood, UA Large(A) Negative 10/31/2024 1:46 PM EDT [facility] Nitrite, UA Negative Negative 10/31/2024 1:46 PM EDT [facility] Urobilinogen, UA <2.0 0.2 - 1.9 mg/dL 10/31/2024 1:46 PM EDT [facility] Leukocyte Esterase, UA Negative Negative 10/31/2024 1:46 PM EDT [facility] RBC, UA >100(H) 0 - 3 /HPF 10/31/2024 1:46 PM EDT [facility] WBC, UA 3 0 - 5 /HPF 10/31/2024 1:46 PM EDT [facility] Hyaline Casts, UA 3(H) 0 - 2 /LPF 10/31/2024 1:46 PM EDT [facility] Urine 10/31/2024 1:18 PM EDT 10/31/2024 1:32 PM EDT Priti Geiger ASSOCIATE ENGINEER URINE ORDERABLES Final Result [facility] [address] * (ABNORMAL) Post Kidney Transplant Urine Culture (10/31/2024 1:18 PM EDT) Culture Result Enterococcus faecium, Vancomycin Resistant(A) [facility] Comment: 1,000- <10,000 cfu/mL Identified [...] SARMAD >=32: Resistant Comment:See Results Priti Geiger CNP MICROBIOLOGY - GENERAL ORDERA BLES Final Result [facility] [address] [facility]. [address] * (ABNORMAL) POC Glucose Monitoring Device (10/31/2024 11:59 AM EDT) [facility] POC Glucose Monitoring Device 130(H) 70 - 100 mg/dL 10/31/2024 12:21 PM EDT [facility] Blood 10/31/2024 11:5 9 AM EDT 10/31/2024 12:21 PM EDT Harvey Domínguez III, MD POINT OF CARE TEST ORDERABLES Final Result [facility] [address] [facility]. [address] * US Abdomen Limited (10/31/2024 10:19 [...] EXAM: US ABDOMEN LIMITED EXAM: US DUPLEX [id number] COMPLETE INDICATION: Post-op liver transplant COMPARISON: None [...] visualized secondary to poor acoustic windows. The rampart right kidney measures 11.6 cm in length. [...] EXAM: US ABDOMEN LIMITED EXAM: US DUPLEX [id number] COMPLETE INDICATION: Post-op liver transplant COMPARISON: None [...] well visualized secondary to poor acousticwindows. The rampart right kidney measures 11.6 cm in length. [...] MD at 10/31/2024 10:35 AM EDT us Beatakayleigh Garland Evens ASSOCIATE ENGINEER IMG US ORDERABLES Final R esult * [...] Cerda MD at 10/31/2024 10:29 AM EDT Beata Horner [facility] US ORDERABLES Final R esult * US Duplex [id number] Comp (10/31/2024 10:19 AM EDT) Anatomical Region [...] EXAM: US ABDOMEN LIMITED EXAM: US DUPLEX [id number] COMPLETE INDICATION: Post-op liver transplant COMPARISON: None [...] visualized secondary to poor acoustic windows. The rampart right kidney measures 11.6 cm in length. [...] EXAM: US ABDOMEN LIMITED EXAM: US DUPLEX [id number] COMPLETE INDICATION: Post-op liver transplant COMPARISON: None [...] well visualized secondary to poor acousticwindows. The rampart right kidney measures 11.6 cm in length. [...] 10/31/2024 10:35 AM EDT us Beata Horner [facility] IMG US ORDERABLES Final R esult * ECG 12-lead (MUSE) (10/31/2024 8:57 AM EDT) 10/31/2024 8:57 AM EDT Narrative MUSE - 11/01/2024 9:21 AM EDT Ventricular Rate: 83 BPM Atrial Rate: 83 BPM P-R Interval: 168 ms QRS Duration: 102 ms QT: 392 ms QTc: 460 ms P Levant: 64 degrees R Levant: -18 degrees T Levant: 7 degrees Diagnosis Line: NORMAL SINUS RHYTHM ^ NORMAL ECG ^ ^ Confirmed by MD JOE, [facility] ([id number]) on 11/01/2024 9:21:13 AM Priti Geiger [facility] ECG ORDERABLES Final Result MUSE * (ABNORMAL) POC Glucose Monitoring Device (10/31/2024 8:44 AM EDT) [facility] POC Glucose Monitoring Device 145(H) 70 - 100 mg/dL 10/31/2024 8:45 AM EDT [facility] Blood 10/31/2024 8:44 AM EDT 10/31/2024 8:44 AM EDT Harvey Domínguez III, MD POINT OF CARE TEST ORDERABLES Final Result [facility] [address] * Tacrolimus level (10/31/2024 6:40 AM EDT) Pathologist [facility] Tacrolimus (LC-MS) 8.4 3.0 - 15.0 ng/mL 10/31/2024 10:05 AM EDT [facility] Comment:Performed via liquid chromatography tandem mass spectrometry. Detection limit: 1 ng/mL. Individual target concentrations may vary due to target organ and time after transplant. This test has been developed and its performance characteristics determined by [facility] which is certified under the Clinical Laboratory [...] PharmD LAB BLOOD ORDERABLES Denisse l Result [facility] [address] * (ABNORMAL) Renal Function Panel w/EGFR (10/31/2024 6:40 AM EDT) [facility] Sodium 141 133 - 146 mmol/L 10/31/2024 8:09 AM EDT [facility] Potassium 3.5 3.5 - 5.3 mmol/L 10/31/2024 8:09 AM EDT [facility] Chloride 111(H) 98 - 110 mmol/L 10/31/2024 8:09 AM EDT [facility] CO2 20(L) 21 - 33 mmol/L 10/31/2024 8:09 AM EDT [facility] Anion Gap 10 3 - 16 mmol/L 10/31/2024 8:09 AM EDT [facility] BUN 54(H) 7 - 25 mg/dL 10/31/2024 8:09 AM EDT [facility] Creatinine 1.75(H) 0.60 - 1.30 mg/dL 10/31/2024 8:09 AM EDT [facility] Glucose 136(H) 70 - 100 mg/dL 10/31/2024 8:09 AM EDT [facility] Calcium 8.7 8.6 - 10.3 mg/dL 10/31/2024 8:09 AM EDT [facility] Phosphorus 4.1 2.1 - 4.7 mg/dL 10/31/2024 8:09 AM EDT [facility] Albumin 3.2(L) 3.5 - 5.7 g/dL 10/31/2024 8:09 AM EDT [facility] Osmolality, Calculated 309(H) 278 - 305 mOsm/kg 10/31/2024 8:09 AM EDT [facility] EGFR 50 10/31/2024 8:09 AM EDT [facility] Comment:As of [...] 6:40 AM EDT 10/31/2024 7:35 AM EDT us Beata Horner ASSOCIATE ENGINEER LAB BLOOD ORDERABLES Denisse valle Result [facility] [address] [place] [facility] [place] [address], [facility] * Magnesium (10/31/2024 6:40 AM EDT) Magnesium 1.8 1.5 - 2.5 mg/dL 10/31/2024 8:09 AM EDT [facility] Plasma 10/31/2024 6:40 AM EDT 10/31/2024 7:35 AM EDT Beata Horner [facility] BLOOD ORDERABLES Denisse l Result Performing Organization Address [facility] Co de Phone Number [facility] [address] [facility]. [address] * (ABNORMAL) Hepatic Function Panel (10/31/2024 6:40 AM EDT) Total Bilirubin 2.7(H) 0.0 - 1.5 mg/dL 10/31/2024 8:09 AM EDT [facility] Bilirubin, Direct 1.57(H) 0.00 - 0.40 mg/dL 10/31/2024 8:09 AM EDT [facility] AST 26 13 - 39 U/L 10/31/2024 8:09 AM EDT [facility] ALT 68(H) 7 - 52 U/L 10/31/2024 8:09 AM EDT [facility] Alkaline Phosphatase 112 36 - 125 U/L 10/31/2024 8:09 AM EDT [facility] Total Protein 4.7(L) 6.4 - 8.9 g/dL 10/31/2024 8:09 AM EDT [facility] Albumin 3.2(L) 3.5 - 5.7 g/dL 10/31/2024 8:09 AM EDT [facility] Bilirubin, Indirect 1.13(H) 0.00 - 1.10 mg/dL 10/31/2024 8:09 AM EDT [facility] Plasma 10/31/2024 6:40 AM EDT 10/31/2024 7:35 AM EDT Beata Horner [facility] BLOOD ORDERABLES Denisse l Result Performing Organization Address City/[facility]/ZIP Co de Phone Number [facility] [address] [facility]. [address] * (ABNORMAL) CBC (10/31/2024 6:40 AM EDT) WBC 6.0 3.8 - 10.8 10E3/uL 10/31/2024 8:05 AM EDT [facility] RBC 3.14(L) 4.20 - 5.80 10E6/uL 10/31/2024 8:05 AM EDT [facility] Hemoglobin 9.6(L) 13.2 - 17.1 g/dL 10/31/2024 8:05 AM EDT [facility] Hematocrit 27.5(L) 38.5 - 50.0 % 10/31/2024 8:05 AM EDT [facility] MCV 87.6 80.0 - 100.0 fL 10/31/2024 8:05 AM EDT [facility] MCH 30.7 27.0 - 33.0 pg 10/31/2024 8:05 AM EDT [facility] MCHC 35.0 32.0 - 36.0 g/dL 10/31/2024 8:05 AM EDT [facility] RDW 17.9(H) 11.0 - 15.0 % 10/31/2024 8:05 AM EDT [facility] Platelets 44(L) 140 - 400 10E3/uL 10/31/2024 8:05 AM EDT [facility] Comment: CNV Specimen checked for clots. None detected. MPV 8.9 7.5 - 11.5 fL 10/31/2024 8:05 AM EDT [facility] Whole Blood 10/31/2024 6:40 AM EDT 10/31/2024 7:34 AM EDT Beata Horner ASSOCIATE ENGINEER LAB BLOOD ORDERABLES Denisse l Result [facility] [address] [place] [address], [facility] * (ABNORMAL) POC Glucose Monitoring Device (10/30/2024 9:01 PM EDT) POC Glucose Monitoring Device 144(H) 70 - 100 mg/dL 10/30/2024 9:02 PM EDT [facility] Blood 10/30/2024 9:01 PM EDT 10/30/2024 9:01 PM EDT Harvey Domínguez III, MD POINT OF CARE TEST ORDERABLES Final Result Performing Organization Address [facility] Co de Phone Number [facility] [address] [facility]. [address] * (ABNORMAL) POC Glucose Monitoring Device (10/30/2024 5:37 PM EDT) POC Glucose Monitoring Device 124(H) 70 - 100 mg/dL 10/30/2024 5:47 PM EDT [facility] Blood 10/30/2024 5:37 PM EDT 10/30/2024 5:47 PM EDT Harvey Domínguez III, MD POINT OF CARE TEST ORDERABLES Final Result Performing Organization Address [facility] Co de Phone Number [facility] [address] [facility]. [address] * (ABNORMAL) POC Glucose Monitoring Device (10/30/2024 7:26 AM EDT) POC Glucose Monitoring Device 150(H) 70 - 100 mg/dL 10/30/2024 7:27 AM EDT [facility] Blood 10/30/2024 7:26 AM EDT 10/30/2024 7:27 AM EDT Harvey Domínguez III, MD POINT OF CARE TEST ORDERABLES Final Result Performing Organization Address [facility] Co de Phone Number [facility] [address] [facility]. [address] * Tacrolimus level (10/30/2024 7:13 AM EDT) Tacrolimus (LC-MS) 9.5 3.0 - 15.0 ng/mL 10/30/2024 2:53 PM EDT [facility] Comment:Performed via liquid chromatography tandem mass spectrometry. Detection limit: 1 ng/mL. Individual target concentrations may vary due to target organ and time after transplant. This test has been developed and its performance characteristics determined by [facility] which is certified under the [...] 7:13 AM EDT 10/30/2024 7:26 AM EDT [employer] [facility] BLOOD ORDERABLES Final Re sult Performing Organization Address City/[facility] Co de Phone Number [facility] [address] * ECG 12-lead (MUSE) (10/30/2024 6:51 AM EDT) 10/30/2024 6:51 AM EDT Narrative MUSE - 11/01/2024 9:21 AM EDT Ventricular Rate: 92 BPM Atrial Rate: 92 BPM P-R Interval: 174 ms QRS Duration: 96 ms QT: 376 ms QTc: 464 ms P Levant: 54 degrees R Levant: -24 degrees T Levant: 11 degrees Diagnosis Line: NORMAL SINUS RHYTHM ^ NORMAL ECG ^ ^ Confirmed by MD JOE, KIMBERLYIIA ([id number]) on 11/01/2024 9:21:09 AM [facility] ECG ORDERABLES Final Result Performing Organization Address City/[facility]/ZIP Co de Phone Number MUSE * (ABNORMAL) Renal Function Panel w/EGFR (10/30/2024 5:41 AM EDT) Sodium 140 133 - 146 mmol/L 10/30/2024 6:18 AM EDT [facility] Potassium 3.8 3.5 - 5.3 mmol/L 10/30/2024 6:18 AM EDT [facility] Chloride 111(H) 98 - 110 mmol/L 10/30/2024 6:18 AM EDT [facility] CO2 17(L) 21 - 33 mmol/L 10/30/2024 6:18 AM EDT [facility] Anion Gap 12 3 - 16 mmol/L 10/30/2024 6:18 AM EDT [facility] BUN 62(H) 7 - 25 mg/dL 10/30/2024 6:18 AM EDT [facility] Creatinine 1.96(H) 0.60 - 1.30 mg/dL 10/30/2024 6:18 AM EDT [facility] Glucose 116(H) 70 - 100 mg/dL 10/30/2024 6:18 AM EDT [facility] Calcium 9.0 8.6 - 10.3 mg/dL 10/30/2024 6:18 AM EDT [facility] Phosphorus 4.6 2.1 - 4.7 mg/dL 10/30/2024 6:18 AM EDT [facility] Albumin 3.2(L) 3.5 - 5.7 g/dL 10/30/2024 6:18 AM EDT [facility] Osmolality, Calculated 309(H) 278 - 305 mOsm/kg 10/30/2024 6:18 AM EDT [facility] EGFR 43 10/30/2024 6:18 AM EDT [facility] Comment:As of [...] 5:41 AM EDT 10/30/2024 5:47 AM EDT us Beata Horner ASSOCIATE ENGINEER LAB BLOOD ORDERABLES Denisse l Result [facility] [address] * Magnesium (10/30/2024 5:41 AM EDT) Magnesium 2.2 1.5 - 2.5 mg/dL 10/30/2024 6:18 AM EDT [facility] Plasma 10/30/2024 5:41 AM EDT 10/30/2024 5:47 AM EDT Beata Horner [facility] BLOOD ORDERABLES Denisse l Result [facility] [address] [place] [facility]. [address] * (ABNORMAL) Hepatic Function Panel (10/30/2024 5:41 AM EDT) Total Bilirubin 3.6(H) 0.0 - 1.5 mg/dL 10/30/2024 6:18 AM EDT [facility] Bilirubin, Direct 1.95(H) 0.00 - 0.40 mg/dL 10/30/2024 6:18 AM EDT [facility] AST 33 13 - 39 U/L 10/30/2024 6:18 AM EDT [facility] ALT 71(H) 7 - 52 U/L 10/30/2024 6:18 AM EDT [facility] Alkaline Phosphatase 80 36 - 125 U/L 10/30/2024 6:18 AM EDT [facility] Total Protein 4.8(L) 6.4 - 8.9 g/dL 10/30/2024 6:18 AM EDT [facility] Albumin 3.2(L) 3.5 - 5.7 g/dL 10/30/2024 6:18 AM EDT [facility] Bilirubin, Indirect 1.65(H) 0.00 - 1.10 mg/dL 10/30/2024 6:18 AM EDT [facility] Plasma 10/30/2024 5:41 AM EDT 10/30/2024 5:47 AM EDT [facility] Dada Horner [facility] BLOOD ORDERABLES Denisse l Result [facility] [address] [facility]. [address] * (ABNORMAL) CBC (10/30/2024 5:41 AM EDT) WBC 8.1 3.8 - 10.8 10E3/uL 10/30/2024 8:06 AM EDT [facility] RBC 3.29(L) 4.20 - 5.80 10E6/uL 10/30/2024 8:06 AM EDT [facility] Hemoglobin 10.1(L) 13.2 - 17.1 g/dL 10/30/2024 8:06 AM EDT [facility] Hematocrit 28.8(L) 38.5 - 50.0 % 10/30/2024 8:06 AM EDT [facility] MCV 87.6 80.0 - 100.0 fL 10/30/2024 8:06 AM EDT [facility] MCH 30.6 27.0 - 33.0 pg 10/30/2024 8:06 AM EDT [facility] MCHC 34.9 32.0 - 36.0 g/dL 10/30/2024 8:06 AM EDT [facility] RDW 18.1(H) 11.0 - 15.0 % 10/30/2024 8:06 AM EDT [facility] Platelets 44(L) 140 - 400 10E3/uL 10/30/2024 8:06 AM EDT [facility] Comment: CNV Specimen checked for clots. None detected. MPV 8.3 7.5 - 11.5 fL 10/30/2024 8:06 AM EDT [facility] Whole Blood 10/30/2024 5:41 AM EDT 10/30/2024 5:50 AM EDT [facility] Dada Horner [facility] BLOOD ORDERABLES Denisse l Result [facility] [address] [facility]. [address] * (ABNORMAL) POC Glucose Monitoring Device (10/29/2024 10:18 PM EDT) POC Glucose Monitoring Device 140(H) 70 - 100 mg/dL 10/29/2024 10:18 PM EDT [facility] Blood 10/29/2024 10:1 8 PM EDT 10/29/2024 10:18 PM EDT us Harvey Domínguez III, MD POINT OF CARE TEST ORDERABLES Final Result [facility] [address] [facility]. [address] * (ABNORMAL) POC Glucose Monitoring Device (10/29/2024 6:42 PM EDT) POC Glucose Monitoring Device 152(H) 70 - 100 mg/dL 10/29/2024 6:43 PM EDT [facility] Blood 10/29/2024 6:42 PM EDT 10/29/2024 6:43 PM EDT us Harvey Domínguez III, MD POINT OF CARE TEST ORDERABLES Final Result Performing Organization Address [facility] Co de Phone Number [facility] [address] [place] [address]. [address] * (ABNORMAL) POC Glucose Monitoring Device (10/29/2024 11:35 AM EDT) POC Glucose Monitoring Device 130(H) 70 - 100 mg/dL 10/29/2024 11:36 AM EDT [facility] Blood 10/29/2024 11:3 5 AM EDT 10/29/2024 11:36 AM EDT us Harvey Domínguez III, MD POINT OF CARE TEST ORDERABLES Final Result Performing Organization Address City/[facility] Co de Phone Number [facility] [address] [facility]. [address] * ECG 12 lead (MUSE) (10/29/2024 9:34 AM EDT) 10/29/2024 9:34 AM EDT Narrative MUSE - 10/29/2024 10:34 PM EDT Ventricular Rate: 97 BPM Atrial Rate: 97 BPM P-R Interval: 186 ms QRS Duration: 104 ms QT: 382 ms QTc: 485 ms P Levant: 54 degrees R Levant: -21 degrees T Levant: 1 degrees Diagnosis Line: NORMAL SINUS RHYTHM ^ NORMAL ECG ^ Confirmed by JORGE MACIAS ([id number]) on 10/29/2024 10:34:50 PM Afshan Bear MD ECG ORDERABLES Final Result MUSE * Tacrolimus level (10/29/2024 8:08 AM EDT) Pathologist [facility] Tacrolimus (LC-MS) 10.4 3.0 - 15.0 ng/mL 10/29/2024 2:07 PM EDT [facility] Comment:Performed via liquid chromatography tandem mass spectrometry. Detection limit: 1 ng/mL. Individual target concentrations may vary due to target organ and time after transplant. This test has been developed and its performance characteristics determined by [facility] which is certified under the [...] EDT 10/29/2024 8:21 AM EDT Priti Geiger [facility] BLOOD ORDERABLES Final Re sult [facility] [address] * Prepare RBC, leukoreduced, 1 Units (10/29/2024 6:16 AM EDT) Product Code Y0078H53 [facility] Unit Number [id number] [facility] Dispense Status Presumed Transfused_PT [facility] Blood Expiration Date 803406241109 [facility] Coding System [id number] [facility] Blood Bank Product Shay Plata MD BLOOD BANK PRODUCT O RDERABLES Final Result Performing Organization Address [facility] Co de Phone Number [facility] * Prepare RBC, leukoreduced, 1 Units (10/29/2024 6:15 AM EDT) Product Code J4056I92 [facility] Unit Number [id number] [facility] Dispense Status Presumed Transfused_PT [facility] Blood Expiration Date 140007680749 [facility] Coding System [id number] [facility] Blood Bank Product Carlos Marks MD BLOOD BANK PRODUCT ORDERABL ES Final Result Performing Organization Address [facility] de Phone Number [facility] * Prepare RBC, leukoreduced, 1 Units (10/29/2024 6:15 AM EDT) Product Code [id number] [facility] Unit Number [id number] [facility] Dispense Status Presumed Transfused_PT [facility] Blood Expiration Date [id number] HC[facility] Coding System [id number] [facility] Blood Bank Product John Moreno MD BLOOD BANK PRODUCT ORDERABLE S Final Result Performing Organization Address [facility] de Phone Number [facility] * (ABNORMAL) Renal Function Panel w/EGFR (10/29/2024 5:07 AM EDT) Sodium 144 133 - 146 mmol/L 10/29/2024 5:49 AM EDT [facility] Potassium 3.8 3.5 - 5.3 mmol/L 10/29/2024 5:49 AM EDT [facility] Chloride 113(H) 98 - 110 mmol/L 10/29/2024 5:49 AM [facility] CO2 17(L) 21 - 33 mmol/L 10/29/2024 5:49 AM EDT [facility] Anion Gap 14 3 - 16 mmol/L 10/29/2024 5:49 AM EDT [facility] BUN 57(H) 7 - 25 mg/dL 10/29/2024 5:49 AM EDT [facility] Creatinine 1.93(H) 0.60 - 1.30 mg/dL 10/29/2024 5:49 AM EDT [facility] Glucose 110(H) 70 - 100 mg/dL 10/29/2024 5:49 AM EDT [facility] Calcium 9.3 8.6 - 10.3 mg/dL 10/29/2024 5:49 AM EDT [facility] Phosphorus 4.8(H) 2.1 - 4.7 mg/dL 10/29/2024 5:49 AM EDT [facility] Albumin 3.5 3.5 - 5.7 g/dL 10/29/2024 5:49 AM EDT [facility] Osmolality, Calculated 314(H) 278 - 305 mOsm/kg 10/29/2024 5:49 AM EDT [facility] EGFR 44 10/29/2024 5:49 AM EDT [facility] Comment:As of [...] AM EDT 10/29/2024 5:13 AM EDT us Betaa Horner [facility] BLOOD ORDERABLES Denisse l Result [facility] [address] * Magnesium (10/29/2024 5:07 AM EDT) Magnesium 2.1 1.5 - 2.5 mg/dL 10/29/2024 5:49 AM EDT [facility] Plasma 10/29/2024 5:07 AM EDT 10/29/2024 5:13 AM EDT Beata Horner [facility] BLOOD ORDERABLES Denisse l Result [facility] [address] * (ABNORMAL) Hepatic Function Panel (10/29/2024 5:07 AM EDT) Total Bilirubin 4.2(H) 0.0 - 1.5 mg/dL 10/29/2024 5:49 AM EDT [facility] Bilirubin, Direct 2.85(H) 0.00 - 0.40 mg/dL 10/29/2024 5:49 AM EDT [facility] AST 31 13 - 39 U/L 10/29/2024 5:49 AM EDT [facility] ALT 88(H) 7 - 52 U/L 10/29/2024 5:49 AM EDT [facility] Alkaline Phosphatase 51 36 - 125 U/L 10/29/2024 5:49 AM EDT [facility] Total Protein 5.2(L) 6.4 - 8.9 g/dL 10/29/2024 5:49 AM EDT [facility] Albumin 3.5 3.5 - 5.7 g/dL 10/29/2024 5:49 AM EDT [facility] Bilirubin, Indirect 1.35(H) 0.00 - 1.10 mg/dL 10/29/2024 5:49 AM EDT [facility] Plasma 10/29/2024 5:07 AM EDT 10/29/2024 5:13 AM EDT us Beata Horner ASSOCIATE ENGINEER LAB BLOOD ORDERABLES Denisse l Result [facility] [address] * (ABNORMAL) CBC (10/29/2024 5:07 AM EDT) [facility] Signature WBC 7.8 3.8 - 10.8 10E3/uL 10/29/2024 5:38 AM EDT [facility] RBC 3.05(L) 4.20 - 5.80 10E6/uL 10/29/2024 5:38 AM EDT [facility] Hemoglobin 9.0(L) 13.2 - 17.1 g/dL 10/29/2024 5:38 AM EDT [facility] Hematocrit 26.7(L) 38.5 - 50.0 % 10/29/2024 5:38 AM EDT [facility] MCV 87.4 80.0 - 100.0 fL 10/29/2024 5:38 AM EDT [facility] MCH 29.7 27.0 - 33.0 pg 10/29/2024 5:38 AM EDT [facility] MCHC 33.9 32.0 - 36.0 g/dL 10/29/2024 5:38 AM EDT [facility] RDW 18.3(H) 11.0 - 15.0 % 10/29/2024 5:38 AM EDT [facility] Platelets 41(L) 140 - 400 10E3/uL 10/29/2024 5:38 AM EDT [facility] Comment: CNV Specimen checked for clots. None detected. MPV 7.5 7.5 - 11.5 fL 10/29/2024 5:38 AM EDT [facility] Whole Blood 10/29/2024 5:07 AM EDT 10/29/2024 5:13 AM EDT [facility] LAB BLOOD ORDERABLES Denisse l Result [facility] [address] * (ABNORMAL) TEG-Bypass/ECMO/Liver HN (Factor function, Platelet/Fibrin Clot Strength w/Clot Breakdown, Heparinase In All Channels) (10/29/2024 5:07 AM EDT) Citrated Kaolin Reaction Time (TEGECMOLIVER) 8.9 4.6 - 9.1 minutes 10/29/2024 7:04 AM EDT [facility] Citrated Kaolin W/Heparinase Reaction Time (TEGECMOLIVER) 7.4 4.3 - 8.3 minutes 10/29/2024 7:04 AM EDT [facility] Citrated Kaolin Maximum Amplitude (TEGECMOLIVER) 52.9 52.0 - 69.0 mm 10/29/2024 7:04 AM EDT [facility] Citrated Functional Fibrinogen W/Heparinase Maximum Amplitude(TEGEC MOLIVER) 20.7 15.0 - 34.0 mm 10/29/2024 7:04 AM EDT [facility] Citrated Rapid Teg W/Heparinase Maximum Amplitude (TEGECMOLIVER) 49.7(L) 53.0 - 69.0 mm 10/29/2024 7:04 AM EDT [facility] Citrated Kaolin w/Heparinase Percent Lysis (TEGECMOLIVER) 0.0 0.0 - 3.2 % 10/29/2024 7:04 AM EDT [facility] Whole Blood (Citrate) 10/29/2024 5:07 AM EDT 10/29/2024 5:10 AM EDT Kemar Sahni MD LAB BLOOD ORDERABLES Final Result [facility] [address] * (ABNORMAL) TEG-Bypass/ECMO/Liver HN (Factor function, Platelet/Fibrin Clot Strength w/Clot Breakdown, Heparinase In All Channels) (10/28/2024 11:55 PM EDT) Citrated Kaolin Reaction Time (TEGECMOLIVER) 8.6 4.6 - 9.1 minutes 10/29/2024 2:01 AM EDT [facility] Citrated Kaolin W/Heparinase Reaction Time (TEGECMOLIVER) 8.7(H) 4.3 - 8.3 minutes 10/29/2024 2:01 AM EDT [facility] Citrated Kaolin Maximum Amplitude (TEGECMOLIVER) 47.9(L) 52.0 - 69.0 mm 10/29/2024 2:01 AM EDT [facility] Citrated Functional Fibrinogen W/Heparinase Maximum Amplitude(TEGEC MOLIVER) 22.0 15.0 - 34.0 mm 10/29/2024 2:01 AM EDT [facility] Citrated Rapid Teg W/Heparinase Maximum Amplitude (TEGECMOLIVER) 45.9(L) 53.0 - 69.0 mm 10/29/2024 2:01 AM EDT [facility] Citrated Kaolin w/Heparinase Percent Lysis (TEGECMOLIVER) 0.0 0.0 - 3.2 % 10/29/2024 2:01 AM EDT [facility] Whole Blood (Citrate) 10/28/2024 11:55 PM EDT 10/28/2024 11:58 PM EDT us Kemar Sahni MD LAB BLOOD ORDERABLES Final Result [facility] [address] [id number] * (ABNORMAL) CBC, STAT (10/28/2024 8:04 PM EDT) WBC 3.9 3.8 - 10.8 10E3/uL 10/28/2024 8:36 PM EDT [facility] RBC 2.66(L) 4.20 - 5.80 10E6/uL 10/28/2024 8:36 PM EDT [facility] Hemoglobin 8.0(L) 13.2 - 17.1 g/dL 10/28/2024 8:36 PM EDT [facility] Hematocrit 23.0(L) 38.5 - 50.0 % 10/28/2024 8:36 PM EDT [facility] MCV 86.4 80.0 - 100.0 fL 10/28/2024 8:36 PM EDT [facility] MCH 29.9 27.0 - 33.0 pg 10/28/2024 8:36 PM EDT [facility] MCHC 34.6 32.0 - 36.0 g/dL 10/28/2024 8:36 PM EDT [facility] RDW 18.6(H) 11.0 - 15.0 % 10/28/2024 8:36 PM EDT [facility] Platelets 29(L) 140 - 400 10E3/uL 10/28/2024 8:36 PM EDT [facility] Comment: CNV Specimen checked for clots. None detected. MPV 7.8 7.5 - 11.5 fL 10/28/2024 8:36 PM EDT [facility] Whole Blood 10/28/2024 8:04 PM EDT 10/28/2024 8:14 PM EDT Carlos Marks MD LAB BLOOD ORDERABLES Final Result Performing Organization Address City/[facility]/ZIP Co de Phone Number [facility] [address] * (ABNORMAL) POC Glucose Monitoring Device (10/28/2024 8:03 PM EDT) [facility] POC Glucose Monitoring Device 122(H) 70 - 100 mg/dL 10/28/2024 8:04 PM EDT [facility] Blood 10/28/2024 8:03 PM EDT 10/28/2024 8:04 PM EDT Harvey Domínguez III, MD POINT OF CARE TEST ORDERABLES Final Result [facility] [address] * (ABNORMAL) TEG-Bypass/ECMO/Liver HN (Factor function, Platelet/Fibrin Clot Strength w/Clot Breakdown, Heparinase In All Channels) (10/28/2024 6:39 PM EDT) Pathologist [facility] Citrated Kaolin Reaction Time (TEGECMOLIVER) 9.0 4.6 - 9.1 minutes 10/28/2024 7:50 PM EDT [facility] Citrated Kaolin W/Heparinase Reaction Time (TEGECMOLIVER) 8.3 4.3 - 8.3 minutes 10/28/2024 7:50 PM EDT [facility] Citrated Kaolin Maximum Amplitude (TEGECMOLIVER) 47.6(L) 52.0 - 69.0 mm 10/28/2024 7:50 PM EDT [facility] Citrated Functional Fibrinogen W/Heparinase Maximum Amplitude(TEGEC MOLIVER) 20.4 15.0 - 34.0 mm 10/28/2024 7:50 PM EDT [facility] Citrated Rapid Teg W/Heparinase Maximum Amplitude (TEGECMOLIVER) 44.0(L) 53.0 - 69.0 mm 10/28/2024 7:50 PM EDT [facility] Citrated Kaolin w/Heparinase Percent Lysis (TEGECMOLIVER) 0.0 0.0 - 3.2 % 10/28/2024 7:50 PM EDT [facility] Whole Blood (Citrate) 10/28/2024 6:39 PM EDT 10/28/2024 6:42 PM EDT Kemar Sahni MD LAB BLOOD ORDERABLES Final Result [facility] [address] * (ABNORMAL) POC Glucose Monitoring Device (10/28/2024 5:31 PM EDT) [facility] POC Glucose Monitoring Device 130(H) 70 - 100 mg/dL 10/28/2024 5:31 PM EDT [facility] Blood 10/28/2024 5:31 PM EDT 10/28/2024 5:31 PM EDT Harvey Domínguez III, MD POINT OF CARE TEST ORDERABLES Final Result [facility] [address] * Transfuse RBC Transfusion Rate: Per dept routine (10/28/2024 5:23 PM EDT) us Shay Plata MD NURSING TREATMENT OR DERABLES - BLOOD ADMIN Final Result Performing Organization Address [facility] de Phone Number EXTERNAL * Transfuse RBC Transfusion Rate: Per dept routine, 1 Units (10/28/2024 5:23 PM EDT) Shay Plata MD NURSING TREATMENT OR DERABLES - BLOOD ADMIN Final Result Performing Organization Address [facility] Co de Phone Number EXTERNAL * US [...] EXAM: US ABDOMEN LIMITED EXAM: US DUPLEX [id number] COMPLETE INDICATION: Post-op liver transplant DATE: 10/28/2024 [...] retrohepatic inferior vena cava is patent. The rampart right kidney is partially visualized. A prominent [...] EXAM: US ABDOMEN LIMITED EXAM: US DUPLEX [id number] COMPLETE INDICATION: Post-op liver transplant DATE: 10/28/2024 [...] retrohepatic inferior vena cava is patent. The rampart right kidney is partially visualized. A prominent [...] ORDERABLES Fi nal Result * US Duplex Fyw-Jzz-Tvigybp Comp (10/28/2024 4:23 PM EDT) Anatomical Region [...] EXAM: US ABDOMEN LIMITED EXAM: US DUPLEX [id number] COMPLETE INDICATION: Post-op liver transplant DATE: 10/28/2024 [...] retrohepatic inferior vena cava is patent. The rampart right kidney is partially visualized. A prominent [...] EXAM: US ABDOMEN LIMITED EXAM: US DUPLEX [id number] COMPLETE INDICATION: Post-op liver transplant DATE: 10/28/2024 [...] retrohepatic inferior vena cava is patent. The rampart right kidney is partially visualized. A prominent [...] Wasserman MD at 10/28/2024 4:42 PM EDT [facility] Vi Plata MD [facility] US ORDERABLES Fi nal Result * (ABNORMAL) CBC, STAT (10/28/2024 2:49 PM EDT) WBC 4.0 3.8 - 10.8 10E3/uL 10/28/2024 3:07 PM EDT [facility] RBC 2.44(L) 4.20 - 5.80 10E6/uL 10/28/2024 3:07 PM EDT [facility] Hemoglobin 7.5(L) 13.2 - 17.1 g/dL 10/28/2024 3:07 PM EDT [facility] Hematocrit 21.4(L) 38.5 - 50.0 % 10/28/2024 3:07 PM EDT [facility] MCV 87.6 80.0 - 100.0 fL 10/28/2024 3:07 PM EDT [facility] MCH 30.6 27.0 - 33.0 pg 10/28/2024 3:07 PM EDT [facility] MCHC 34.9 32.0 - 36.0 g/dL 10/28/2024 3:07 PM EDT [facility] RDW 18.4(H) 11.0 - 15.0 % 10/28/2024 3:07 PM EDT [facility] Platelets 30(L) 140 - 400 10E3/uL 10/28/2024 3:07 PM EDT [facility] Comment: CNV Specimen checked for clots. None detected. MPV 7.7 7.5 - 11.5 fL 10/28/2024 3:07 PM EDT [facility] Whole Blood 10/28/2024 2:49 PM EDT 10/28/2024 2:53 PM EDT Carlos Marks MD LAB BLOOD ORDERABLES Final Result Performing Organization Address City/[facility] Co de Phone Number [facility] [address] * ECG 12 lead (MUSE) (10/28/2024 1:22 PM EDT) 10/28/2024 1:22 PM EDT Narrative MUSE - 10/29/2024 10:34 PM EDT Ventricular Rate: 104 BPM Atrial Rate: 104 BPM P-R Interval: 172 ms QRS Duration: 90 ms QT: 354 ms QTc: 465 ms P Levant: 58 degrees R Levant: -19 degrees T Levant: 38 degrees Diagnosis Line: SINUS TACHYCARDIA ^ OTHERWISE NORMAL ECG ^ ^ Confirmed by JORGE MACIAS ([id number]) on 10/29/2024 10:34:22 PM us Hillary Fernandes PharmD ECG ORDERABLES Final Res ult MUSE * (ABNORMAL) POC Glucose Monitoring Device (10/28/2024 12:54 PM EDT) [facility] POC Glucose Monitoring Device 119(H) 70 - 100 mg/dL 10/28/2024 12:55 PM EDT [facility] Blood 10/28/2024 12:5 4 PM EDT 10/28/2024 12:55 PM EDT Harvey Domínguez III, MD POINT OF CARE TEST ORDERABLES Final Result Performing Organization Address [facility] Co de Phone Number [facility] [address] [facility]. [address] * Transfuse RBC Transfusion Rate: Per dept routine (10/28/2024 12:31 PM EDT) Carlos Marks MD NURSING TREATMENT ORDERABLE S - BLOOD ADMIN Final Result Performing Organization Address City/[facility] Co de Phone Number EXTERNAL * Transfuse RBC Transfusion Rate: Per dept routine, 1 Units (10/28/2024 12:31 PM EDT) Carlos Marks MD NURSING TREATMENT ORDERABLE S - BLOOD ADMIN Final Result Performing Organization Address [facility] de Phone Number EXTERNAL * Protime-INR, STAT (10/28/2024 11:09 AM EDT) Protime 14.3 12.1 - 15.1 seconds 10/28/2024 11:29 AM EDT [facility] INR 1.1 0.9 - 1.1 10/28/2024 11:29 AM EDT [facility] Comment: RECOMMENDED THERAPEUTIC RANGES USING INR : Stable oral anticoagulant therapy: 2.0 - 3.0 Mechanical prosthetic heart valve: 2.5 - 3.5 Recurrent acute myocardial infarction: 2.5 - 3.5 Plasma 10/28/2024 11:0 9 AM EDT 10/28/2024 11:16 AM EDT Carlos Marks MD LAB BLOOD ORDERABLES Final Result Performing Organization Address [facility] Co de Phone Number [facility] [address] [facility]. [address] * (ABNORMAL) Lactic Acid, STAT (10/28/2024 11:09 AM EDT) Lactate 0.3(L) 0.5 - 2.2 mmol/L 10/28/2024 11:37 AM EDT [facility] Plasma 10/28/2024 11:0 9 AM EDT 10/28/2024 11:15 AM EDT us Carlos Marks MD LAB BLOOD ORDERABLES Final Result [facility] [address] * Magnesium, STAT (10/28/2024 11:09 AM EDT) Magnesium 2.1 1.5 - 2.5 mg/dL 10/28/2024 11:47 AM EDT [facility] Plasma 10/28/2024 11:0 9 AM EDT 10/28/2024 11:16 AM EDT us Carlos Marks MD LAB BLOOD ORDERABLES Final Result Performing Organization Address [facility] Co de Phone Number [facility] [address] * (ABNORMAL) Renal Function Panel w/EGFR, STAT (10/28/2024 11:09 AM EDT) Sodium 144 133 - 146 mmol/L 10/28/2024 11:47 AM EDT [facility] Potassium 3.4(L) 3.5 - 5.3 mmol/L 10/28/2024 11:47 AM EDT [facility] Chloride 112(H) 98 - 110 mmol/L 10/28/2024 11:47 AM EDT [facility] CO2 22 21 - 33 mmol/L 10/28/2024 11:47 AM EDT [facility] Anion Gap 10 3 - 16 mmol/L 10/28/2024 11:47 AM EDT [facility] BUN 57(H) 7 - 25 mg/dL 10/28/2024 11:47 AM EDT [facility] Creatinine 2.01(H) 0.60 - 1.30 mg/dL 10/28/2024 11:47 AM EDT [facility] Glucose 108(H) 70 - 100 mg/dL 10/28/2024 11:47 AM EDT [facility] Calcium 8.8 8.6 - 10.3 mg/dL 10/28/2024 11:47 AM EDT [facility] Phosphorus 4.0 2.1 - 4.7 mg/dL 10/28/2024 11:47 AM EDT [facility] Albumin 3.3(L) 3.5 - 5.7 g/dL 10/28/2024 11:47 AM EDT [facility] Osmolality, Calculated 314(H) 278 - 305 mOsm/kg 10/28/2024 11:47 AM EDT [facility] EGFR 42 10/28/2024 11:47 AM EDT [facility] Comment:As of [...] Marks MD LAB BLOOD ORDERABLES Final Result [facility] [address] [id number], [facility] * (ABNORMAL) TEG-Bypass/ECMO/Liver HN (Factor function, Platelet/Fibrin Clot Strength w/Clot Breakdown, Heparinase In All Channels) (10/28/2024 11:09 AM EDT) Citrated Kaolin Reaction Time (TEGECMOLIVER) 9.2(H) 4.6 - 9.1 minutes 10/28/2024 12:30 PM EDT [facility] Citrated Kaolin W/Heparinase Reaction Time (TEGECMOLIVER) 9.6(H) 4.3 - 8.3 minutes 10/28/2024 12:30 PM EDT [facility] Citrated Kaolin Maximum Amplitude (TEGECMOLIVER) 51.2(L) 52.0 - 69.0 mm 10/28/2024 12:30 PM EDT [facility] Citrated Functional Fibrinogen W/Heparinase Maximum Amplitude(TEGEC MOLIVER) 21.6 15.0 - 34.0 mm 10/28/2024 12:30 PM EDT [facility] Citrated Rapid Teg W/Heparinase Maximum Amplitude (TEGECMOLIVER) 49.3(L) 53.0 - 69.0 mm 10/28/2024 12:30 PM EDT [facility] Citrated Kaolin w/Heparinase Percent Lysis (TEGECMOLIVER) 0.0 0.0 - 3.2 % 10/28/2024 12:30 PM EDT [facility] Whole Blood (Citrate) 10/28/2024 11:09 AM EDT 10/28/2024 11:14 AM EDT us Kemar Sahni MD LAB BLOOD ORDERABLES Final Result [facility] [address] * (ABNORMAL) CBC (10/28/2024 10:21 AM EDT) WBC 4.1 3.8 - 10.8 10E3/uL 10/28/2024 10:41 AM EDT [facility] RBC 2.30(L) 4.20 - 5.80 10E6/uL 10/28/2024 10:41 AM EDT [facility] Hemoglobin 7.1(L) 13.2 - 17.1 g/dL 10/28/2024 10:41 AM EDT [facility] Hematocrit 20.4(L) 38.5 - 50.0 % 10/28/2024 10:41 AM EDT [facility] MCV 88.5 80.0 - 100.0 fL 10/28/2024 10:41 AM EDT [facility] MCH 30.7 27.0 - 33.0 pg 10/28/2024 10:41 AM EDT [facility] MCHC 34.7 32.0 - 36.0 g/dL 10/28/2024 10:41 AM EDT [facility] RDW 18.7(H) 11.0 - 15.0 % 10/28/2024 10:41 AM EDT [facility] Platelets 37(L) 140 - 400 10E3/uL 10/28/2024 10:41 AM EDT [facility] Comment: CNV Specimen checked for clots. None detected. MPV 7.6 7.5 - 11.5 fL 10/28/2024 10:41 AM EDT [facility] Whole Blood 10/28/2024 10:2 1 AM EDT 10/28/2024 10:29 AM EDT Carlos Marks MD LAB BLOOD ORDERABLES Final Result [facility] [address] * POC Glucose Monitoring Device (10/28/2024 9:07 AM EDT) [facility] POC Glucose Monitoring Device 97 70 - 100 mg/dL 10/28/2024 9:08 AM EDT [facility] Blood 10/28/2024 9:07 AM EDT 10/28/2024 9:08 AM EDT Harvey Domínguez III, MD POINT OF CARE TEST ORDERABLES Final Result [facility] [address] * (ABNORMAL) Tacrolimus level (10/28/2024 8:20 AM EDT) Tacrolimus (LC-MS) <1.0(L) 3.0 - 15.0 ng/mL 10/28/2024 2:02 PM EDT [facility] Comment:Performed via liquid chromatography tandem mass spectrometry. Detection limit: 1 ng/mL. Individual target concentrations may vary due to target organ and time after transplant. This test has been developed and its performance characteristics determined by [facility] which is certified under the Clinical Laboratory [...] EDT 10/28/2024 8:29 AM EDT Priti Geiger [facility] BLOOD ORDERABLES Final Re sult Performing Organization Address [facility] Co de Phone Number [facility] [address] * (ABNORMAL) POC Glucose Monitoring Device (10/28/2024 8:10 AM EDT) POC Glucose Monitoring Device 102(H) 70 - 100 mg/dL 10/28/2024 8:11 AM EDT [facility] Blood 10/28/2024 8:10 AM EDT 10/28/2024 8:11 AM EDT Harvey Domínguez III, MD POINT OF CARE TEST ORDERABLES Final Result Performing Organization Address [facility] de Phone Number [facility] [address] [facility]. [address] * POC Glucose Monitoring Device (10/28/2024 6:17 AM EDT) POC Glucose Monitoring Device 100 70 - 100 mg/dL 10/28/2024 6:18 AM EDT [facility] Blood 10/28/2024 6:17 AM EDT 10/28/2024 6:18 AM EDT us Harvey Domínguez III, MD POINT OF CARE TEST ORDERABLES Final Result Performing Organization Address [facility] Co de Phone Number [facility] [address] [place] [address], [facility] * Prepare Platelets, leukoreduced (10/28/2024 6:15 AM EDT) Product Code D0883V70 HCLL Unit Number [id number] HCLL Dispense Status Presumed Transfused_PT HCLL Blood Expiration Date HCLL Coding System [id number] HCLL Product Code G9104U76 HCLL Unit Number [id number] HCLL Dispense Status Presumed Transfused_PT HCLL Blood Expiration Date HCLL Coding System [id number] HCLL Attending Provider Unknown BLOOD BANK PRODUCT OR DERABLES Final Result Performing Organization Address City/[facility]/ZIP Co de Phone Number HCLL * Prepare Fresh Frozen Plasma (10/28/2024 6:15 AM EDT) Product Code L2250P49 HCLL Unit Number [id number] HCLL Dispense Status Released from Crossmatch_RE HCLL Blood Expiration Date HCLL Coding System [id number] HCLL Product Code C7217Q54 HCLL Unit Number [id number] HCLL Dispense Status Presumed Transfused_PT HCLL Blood Expiration Date HCLL Coding System [id number] HCLL Product Code P8852Z59 HCLL Unit Number [id number] HCLL Dispense Status Released from Crossmatch_RE HCLL Blood Expiration Date HCLL Coding System FDSD715 HCLL Product Code N1312P63 HCLL Unit Number [id number] HCLL Dispense Status Presumed Transfused_PT HCLL Blood Expiration Date HCLL Coding System [id number] HCLL Product Code N2711Y40 HCLL Unit Number [id number] HCLL Dispense Status Released from Crossmatch_RE HCLL Blood Expiration Date HCLL Coding System [id number] HCLL us Attending Provider Unknown BLOOD BANK PRODUCT OR DERABLES Final Result Performing Organization Address City/[facility] de Phone Number HCLL * Prepare RBC, leukoreduced (10/28/2024 6:15 AM EDT) Product Code Y6103F51 HCLL Unit Number [id number] HCLL Dispense Status Released from Crossmatch_RE HCLL Blood Expiration Date [id number] HCLL Coding System UDGR674 HCLL Product Code T3120Q40 HCLL Unit Number [id number] HCLL Dispense Status Presumed Transfused_PT HCLL Blood Expiration Date 856244544383 HCLL Coding System [id number] HCLL Product Code R1475V04 HCLL Unit Number [id number] HCLL Dispense Status Released from Crossmatch_RE HCLL Blood Expiration Date 729202494280 HCLL Coding System SHXE491 HCLL Product Code V2267I02 HCLL Unit Number [id number] HCLL Dispense Status Presumed Transfused_PT HCLL Blood Expiration Date [id number] HCLL Coding System FRCU528 HCLL Product Code Y9690Q25 HCLL Unit Number [id number] HCLL Dispense Status Released from Crossmatch_RE HCLL Blood Expiration Date 261142316754 HCLL Coding System PMOB165 HCLL us Attending Provider Unknown BLOOD BANK PRODUCT OR DERABLES Final Result Performing Organization Address City/[facility] Co de Phone Number HCLL * Prepare Platelets, leukoreduced, 1 Units (10/28/2024 6:15 AM EDT) Product Code N8017O24 HCLL Unit Number [id number] HCLL Dispense Status Presumed Transfused_PT HCLL Blood Expiration Date 024341722489 HCLL Coding System PEQZ435 HCLL Blood Bank Product John Pina MD BLOOD BANK PRODUCT ORDERABLES F inal Result Performing Organization Address [facility] de Phone Number HCLL * Prepare Cryoprecipitate, 1 Units (10/28/2024 6:15 AM EDT) Product Code A8196Q86 HCLL Unit Number [id number] HCLL Dispense Status Presumed Transfused_PT HCLL Blood Expiration Date HCLL Coding System YIMI405 HCLL Product Code R4750C98 HCLL Unit Number [id number] HCLL Dispense Status Presumed Transfused_PT HCLL Blood Expiration Date HCLL Coding System DBTR554 HCLL Blood Bank Product John Pina MD BLOOD BANK PRODUCT ORDERABLES F inal Result Performing Organization Address [facility] de Phone Number HCLL * Prepare Fresh Frozen Plasma, 1 Units (10/28/2024 6:15 AM EDT) Product Code B5323G51 HCLL Unit Number [id number] HCLL Dispense Status Presumed Transfused_PT HCLL Blood Expiration Date 030792595794 HCLL Coding System FDWG099 HCLL Blood Bank Product John Pina MD BLOOD BANK PRODUCT ORDERABLES F inal Result Performing Organization Address [facility] de Phone Number HCLL * Prepare Cryoprecipitate, 1 Units (10/28/2024 6:15 AM EDT) Product Code W5218M57 HCLL Unit Number [id number] HCLL Dispense Status Presumed Transfused_PT HCLL Blood Expiration Date [id number] HCLL Coding System [id number] HCLL Product Code U1827L63 HCLL Unit Number [id number] HCLL Dispense Status Presumed Transfused_PT HCLL Blood Expiration Date [id number] HCLL Coding System [id number] HCLL Product Code V0040W09 HCLL Unit Number [id number] HCLL Dispense Status Presumed Transfused_PT HCLL Blood Expiration Date HCLL Coding System EHUG025 HCLL Product Code A5292V30 HCLL Unit Number [id number] HCLL Dispense Status Presumed Transfused_PT HCLL Blood Expiration Date [id number] HCLL Coding System LTXS003 HCLL Blood Bank Product John Pina MD BLOOD BANK PRODUCT ORDERABLES F inal Result HCLL * (ABNORMAL) POC Glucose Monitoring Device (10/28/2024 4:55 AM EDT) POC Glucose Monitoring Device 104(H) 70 - 100 mg/dL 10/28/2024 4:57 AM EDT [facility] Blood 10/28/2024 4:55 AM EDT 10/28/2024 4:57 AM EDT Harvey Domínguez III, MD POINT OF CARE TEST ORDERABLES Final Result [facility] [address] * TEG-Bypass/ECMO/Liver HN (Factor function, Platelet/Fibrin Clot Strength w/Clot Breakdown, Heparinase In All Channels) (10/28/2024 4:13 AM EDT) Citrated Kaolin Reaction Time (TEGECMOLIVER) 7.2 4.6 - 9.1 minutes 10/28/2024 5:38 AM EDT [facility] Citrated Kaolin W/Heparinase Reaction Time (TEGECMOLIVER) 7.8 4.3 - 8.3 minutes 10/28/2024 5:38 AM EDT [facility] Citrated Kaolin Maximum Amplitude (TEGECMOLIVER) 53.0 52.0 - 69.0 mm 10/28/2024 5:38 AM EDT [facility] Citrated Functional Fibrinogen W/Heparinase Maximum Amplitude(TEGEC MOLIVER) 21.4 15.0 - 34.0 mm 10/28/2024 5:38 AM EDT [facility] Citrated Rapid Teg W/Heparinase Maximum Amplitude (TEGECMOLIVER) 54.7 53.0 - 69.0 mm 10/28/2024 5:38 AM EDT [facility] Citrated Kaolin w/Heparinase Percent Lysis (TEGECMOLIVER) 0.0 0.0 - 3.2 % 10/28/2024 5:38 AM EDT [facility] Whole Blood (Citrate) 10/28/2024 4:13 AM EDT 10/28/2024 4:28 AM EDT Kemar Sahni MD LAB BLOOD ORDERABLES Final Result Performing Organization Address [facility] Co de Phone Number [facility] [address] [facility]. [address] * Protime-INR (10/28/2024 4:13 AM EDT) Protime 14.6 12.1 - 15.1 seconds 10/28/2024 4:53 AM EDT [facility] INR 1.1 0.9 - 1.1 10/28/2024 4:53 AM EDT [facility] Comment: RECOMMENDED THERAPEUTIC RANGES USING INR : Stable oral anticoagulant therapy: 2.0 - 3.0 Mechanical prosthetic heart valve: 2.5 - 3.5 Recurrent acute myocardial infarction: 2.5 - 3.5 Plasma 10/28/2024 4:13 AM EDT 10/28/2024 4:41 AM EDT Kemar Sahni MD LAB BLOOD ORDERABLES Final Result Performing Organization Address City/[facility]/ZIP Co de Phone Number [facility] [address] [facility]. [address] * Magnesium (10/28/2024 4:13 AM EDT) Magnesium 2.2 1.5 - 2.5 mg/dL 10/28/2024 5:15 AM EDT [facility] Plasma 10/28/2024 4:13 AM EDT 10/28/2024 4:41 AM EDT Kemar Sahni MD LAB BLOOD ORDERABLES Final Result [facility] [address] * (ABNORMAL) Hepatic Function Panel (10/28/2024 4:13 AM EDT) Total Bilirubin 2.3(H) 0.0 - 1.5 mg/dL 10/28/2024 5:15 AM EDT [facility] Bilirubin, Direct 1.67(H) 0.00 - 0.40 mg/dL 10/28/2024 5:15 AM EDT [facility] AST 44(H) 13 - 39 U/L 10/28/2024 5:15 AM EDT [facility] ALT 101(H) 7 - 52 U/L 10/28/2024 5:15 AM EDT [facility] Alkaline Phosphatase 26(L) 36 - 125 U/L 10/28/2024 5:15 AM EDT [facility] Total Protein 4.5(L) 6.4 - 8.9 g/dL 10/28/2024 5:15 AM EDT [facility] Albumin 3.1(L) 3.5 - 5.7 g/dL 10/28/2024 5:15 AM EDT [facility] Bilirubin, Indirect 0.63 0.00 - 1.10 mg/dL 10/28/2024 5:15 AM EDT [facility] Plasma 10/28/2024 4:13 AM EDT 10/28/2024 4:41 AM EDT Kemar Sahni MD LAB BLOOD ORDERABLES Final Result [facility] [address] * (ABNORMAL) Renal Function Panel w/EGFR (10/28/2024 4:13 AM EDT) Sodium 142 133 - 146 mmol/L 10/28/2024 5:15 AM EDT [facility] Potassium 3.5 3.5 - 5.3 mmol/L 10/28/2024 5:15 AM EDT [facility] Chloride 111(H) 98 - 110 mmol/L 10/28/2024 5:15 AM EDT [facility] CO2 22 21 - 33 mmol/L 10/28/2024 5:15 AM EDT [facility] Anion Gap 9 3 - 16 mmol/L 10/28/2024 5:15 AM EDT [facility] BUN 58(H) 7 - 25 mg/dL 10/28/2024 5:15 AM EDT [facility] Creatinine 2.24(H) 0.60 - 1.30 mg/dL 10/28/2024 5:15 AM EDT [facility] Glucose 103(H) 70 - 100 mg/dL 10/28/2024 5:15 AM EDT [facility] Calcium 9.1 8.6 - 10.3 mg/dL 10/28/2024 5:15 AM EDT [facility] Phosphorus 4.8(H) 2.1 - 4.7 mg/dL 10/28/2024 5:15 AM EDT [facility] Albumin 3.1(L) 3.5 - 5.7 g/dL 10/28/2024 5:15 AM EDT [facility] Osmolality, Calculated 310(H) 278 - 305 mOsm/kg 10/28/2024 5:15 AM EDT [facility] EGFR 37 10/28/2024 5:15 AM EDT [facility] Comment:As of [...] Sahni MD LAB BLOOD ORDERABLES Final Result [facility] [address] [place] [address], [facility] * (ABNORMAL) CBC (10/28/2024 4:13 AM EDT) WBC 4.5 3.8 - 10.8 10E3/uL 10/28/2024 5:09 AM EDT [facility] RBC 2.39(L) 4.20 - 5.80 10E6/uL 10/28/2024 5:09 AM EDT [facility] Hemoglobin 7.3(L) 13.2 - 17.1 g/dL 10/28/2024 5:09 AM EDT [facility] Hematocrit 21.0(L) 38.5 - 50.0 % 10/28/2024 5:09 AM EDT [facility] MCV 87.8 80.0 - 100.0 fL 10/28/2024 5:09 AM EDT [facility] MCH 30.5 27.0 - 33.0 pg 10/28/2024 5:09 AM EDT [facility] MCHC 34.7 32.0 - 36.0 g/dL 10/28/2024 5:09 AM EDT [facility] RDW 18.7(H) 11.0 - 15.0 % 10/28/2024 5:09 AM EDT [facility] Platelets 38(L) 140 - 400 10E3/uL 10/28/2024 5:09 AM EDT [facility] Comment: CNV Specimen checked for clots. None detected. MPV 7.6 7.5 - 11.5 fL 10/28/2024 5:09 AM EDT [facility] Whole Blood 10/28/2024 4:13 AM EDT 10/28/2024 4:41 AM EDT us Kemar Sahni MD LAB BLOOD ORDERABLES Final Result Performing Organization Address City/[facility]/ZIP Co de Phone Number [facility] [address] [facility]. [address] * (ABNORMAL) POC Glucose Monitoring Device (10/28/2024 4:04 AM EDT) POC Glucose Monitoring Device 103(H) 70 - 100 mg/dL 10/28/2024 4:05 AM EDT [facility] Blood 10/28/2024 4:04 AM EDT 10/28/2024 4:05 AM EDT Harvey Domínguez III, MD POINT OF CARE TEST ORDERABLES Final Result Performing Organization Address City/[facility] Co de Phone Number [facility] [address] [facility]. [address] * (ABNORMAL) POC Glucose Monitoring Device (10/28/2024 3:00 AM EDT) POC Glucose Monitoring Device 106(H) 70 - 100 mg/dL 10/28/2024 3:01 AM EDT [facility] Blood 10/28/2024 3:00 AM EDT 10/28/2024 3:01 AM EDT us Harvey Domínguez III, MD POINT OF CARE TEST ORDERABLES Final Result Performing Organization Address City/[facility]/ZIP Co de Phone Number [facility] [address] [facility]. [address] * (ABNORMAL) POC Glucose Monitoring Device (10/28/2024 2:32 AM EDT) POC Glucose Monitoring Device 109(H) 70 - 100 mg/dL 10/28/2024 2:33 AM EDT [facility] Blood 10/28/2024 2:32 AM EDT 10/28/2024 2:33 AM EDT us Harvey Domínguez III, MD POINT OF CARE TEST ORDERABLES Final Result Performing Organization Address [facility] Co de Phone Number [facility] [address] [facility]. [address] * (ABNORMAL) POC Glucose Monitoring Device (10/28/2024 2:14 AM EDT) POC Glucose Monitoring Device 115(H) 70 - 100 mg/dL 10/28/2024 2:15 AM EDT [facility] Blood 10/28/2024 2:14 AM EDT 10/28/2024 2:15 AM EDT Harvey Domínguez III, MD POINT OF CARE TEST ORDERABLES Final Result Performing Organization Address [facility] Co de Phone Number [facility] [address] [facility]. [address] * (ABNORMAL) POC Glucose Monitoring Device (10/28/2024 2:03 AM EDT) POC Glucose Monitoring Device 101(H) 70 - 100 mg/dL 10/28/2024 2:04 AM EDT [facility] Blood 10/28/2024 2:03 AM EDT 10/28/2024 2:04 AM EDT Harvey Domínguez III, MD POINT OF CARE TEST ORDERABLES Final Result Performing Organization Address [facility] Co de Phone Number [facility] [address] [facility]. [address] * Transfuse RBC Transfusion Rate: Per dept routine (10/28/2024 1:51 AM EDT) John Moreno MD NURSING TREATMENT ORDERABLES - BLOOD ADMIN Final Result Performing Organization Address City/[facility] Co de Phone Number EXTERNAL * Transfuse RBC Transfusion Rate: Per dept routine, 1 Units (10/28/2024 1:51 AM EDT) us John Moreno MD NURSING TREATMENT ORDERABLES - BLOOD ADMIN Final Result EXTERNAL * (ABNORMAL) TEG-Bypass/ECMO/Liver HN (Factor function, Platelet/Fibrin Clot Strength w/Clot Breakdown, Heparinase In All Channels) (10/28/2024 12:05 AM EDT) Citrated Kaolin Reaction Time (TEGECMOLIVER) 7.5 4.6 - 9.1 minutes 10/28/2024 1:22 AM EDT [facility] Citrated Kaolin W/Heparinase Reaction Time (TEGECMOLIVER) 7.7 4.3 - 8.3 minutes 10/28/2024 1:22 AM EDT [facility] Citrated Kaolin Maximum Amplitude (TEGECMOLIVER) 54.4 52.0 - 69.0 mm 10/28/2024 1:22 AM EDT [facility] Citrated Functional Fibrinogen W/Heparinase Maximum Amplitude(TEGEC MOLIVER) 20.4 15.0 - 34.0 mm 10/28/2024 1:22 AM EDT [facility] Citrated Rapid Teg W/Heparinase Maximum Amplitude (TEGECMOLIVER) 51.0(L) 53.0 - 69.0 mm 10/28/2024 1:22 AM EDT [facility] Citrated Kaolin w/Heparinase Percent Lysis (TEGECMOLIVER) 0.0 0.0 - 3.2 % 10/28/2024 1:22 AM EDT [facility] Whole Blood (Citrate) 10/28/2024 12:05 AM EDT 10/28/2024 12:09 AM EDT us Kemar Sahni MD LAB BLOOD ORDERABLES Final Result [facility] [address] [place] [address], [facility] * Magnesium (10/28/2024 12:05 AM EDT) Magnesium 2.2 1.5 - 2.5 mg/dL 10/28/2024 1:59 AM EDT [facility] Plasma 10/28/2024 12:0 5 AM EDT 10/28/2024 12:11 AM EDT us Kemar Sahni MD LAB BLOOD ORDERABLES Final Result [facility] [address] [place] [address], [facility] * (ABNORMAL) Renal Function Panel w/EGFR (10/28/2024 12:05 AM EDT) Sodium 144 133 - 146 mmol/L 10/28/2024 1:59 AM EDT [facility] Potassium 3.4(L) 3.5 - 5.3 mmol/L 10/28/2024 1:59 AM EDT [facility] Chloride 112(H) 98 - 110 mmol/L 10/28/2024 1:59 AM EDT [facility] CO2 19(L) 21 - 33 mmol/L 10/28/2024 1:59 AM EDT [facility] Anion Gap 13 3 - 16 mmol/L 10/28/2024 1:59 AM EDT [facility] BUN 59(H) 7 - 25 mg/dL 10/28/2024 1:59 AM EDT [facility] Creatinine 2.42(H) 0.60 - 1.30 mg/dL 10/28/2024 1:59 AM EDT [facility] Glucose 118(H) 70 - 100 mg/dL 10/28/2024 1:59 AM EDT [facility] Calcium 9.0 8.6 - 10.3 mg/dL 10/28/2024 1:59 AM EDT [facility] Phosphorus 5.3(H) 2.1 - 4.7 mg/dL 10/28/2024 1:59 AM EDT [facility] Albumin 3.1(L) 3.5 - 5.7 g/dL 10/28/2024 1:59 AM EDT [facility] Osmolality, Calculated 316(H) 278 - 305 mOsm/kg 10/28/2024 1:59 AM EDT [facility] EGFR 34 10/28/2024 1:59 AM EDT [facility] Comment:As of [...] Sahni MD LAB BLOOD ORDERABLES Final Result [facility] [address] * (ABNORMAL) Differential (10/28/2024 12:05 AM EDT) Neutrophils Relative 88.6(H) 40.0 - 80.0 % 10/28/2024 12:41 AM EDT [facility] Lymphocytes Relative 2.5(L) 15.0 - 45.0 % 10/28/2024 12:41 AM EDT [facility] Monocytes Relative 6.1 0.0 - 12.0 % 10/28/2024 12:41 AM EDT [facility] Eosinophils Relative 2.4 0.0 - 8.0 % 10/28/2024 12:41 AM EDT [facility] Basophils Relative 0.4 0.0 - 1.0 % 10/28/2024 12:41 AM EDT [facility] nRBC 0 0 - 0 /100 WBC 10/28/2024 12:41 AM EDT [facility] Neutrophils Absolute 4,341 1,520 - 8,640 /uL 10/28/2024 12:41 AM EDT [facility] Lymphocytes Absolute 123(L) 570 - 4,860 /uL 10/28/2024 12:41 AM EDT [facility] Monocytes Absolute 299 0 - 1,296 /uL 10/28/2024 12:41 AM EDT [facility] Eosinophils Absolute 118 0 - 864 /uL 10/28/2024 12:41 AM EDT [facility] Basophils Absolute 20 0 - 108 /uL 10/28/2024 12:41 AM EDT [facility] Whole Blood 10/28/2024 12:0 5 AM EDT 10/28/2024 12:11 AM EDT Kemar Sahni MD LAB BLOOD ORDERABLES Final Result [facility] [address] [place] [address], [facility] * (ABNORMAL) CBC (10/28/2024 12:05 AM EDT) WBC 4.9 3.8 - 10.8 10E3/uL 10/28/2024 12:41 AM EDT [facility] RBC 2.18(L) 4.20 - 5.80 10E6/uL 10/28/2024 12:41 AM EDT [facility] Hemoglobin 6.7(L) 13.2 - 17.1 g/dL 10/28/2024 12:41 AM EDT [facility] Hematocrit 19.2(L) 38.5 - 50.0 % 10/28/2024 12:41 AM EDT [facility] MCV 87.8 80.0 - 100.0 fL 10/28/2024 12:41 AM EDT [facility] MCH 30.6 27.0 - 33.0 pg 10/28/2024 12:41 AM EDT [facility] MCHC 34.8 32.0 - 36.0 g/dL 10/28/2024 12:41 AM EDT [facility] RDW 19.6(H) 11.0 - 15.0 % 10/28/2024 12:41 AM EDT [facility] Platelets 45(L) 140 - 400 10E3/uL 10/28/2024 12:41 AM EDT [facility] Comment: CNV Specimen checked for clots. None detected. MPV 7.8 7.5 - 11.5 fL 10/28/2024 12:41 AM EDT [facility] Whole Blood 10/28/2024 12:0 5 AM EDT 10/28/2024 12:11 AM EDT Kemar Sahni MD LAB BLOOD ORDERABLES Final Result [facility] [address] [facility]. [address] * (ABNORMAL) POC Glucose Monitoring Device (10/28/2024 12:03 AM EDT) POC Glucose Monitoring Device 122(H) 70 - 100 mg/dL 10/28/2024 12:04 AM EDT [facility] Blood 10/28/2024 12:0 3 AM EDT 10/28/2024 12:04 AM EDT Harvey Domínguez III, MD POINT OF CARE TEST ORDERABLES Final Result Performing Organization Address [facility]/ZIP Co de Phone Number [facility] [address] [facility]. [address] * (ABNORMAL) POC Glucose Monitoring Device (10/27/2024 10:03 PM EDT) POC Glucose Monitoring Device 127(H) 70 - 100 mg/dL 10/27/2024 10:03 PM EDT [facility] Blood 10/27/2024 10:0 3 PM EDT 10/27/2024 10:03 PM EDT Harvey Domínguez III, MD POINT OF CARE TEST ORDERABLES Final Result [facility] [address] [facility]. [address] * (ABNORMAL) POC Glucose Monitoring Device (10/27/2024 8:06 PM EDT) POC Glucose Monitoring Device 128(H) 70 - 100 mg/dL 10/27/2024 8:45 PM EDT [facility] Blood 10/27/2024 8:06 PM EDT 10/27/2024 8:45 PM EDT Harvey Domínguez III, MD POINT OF CARE TEST ORDERABLES Final Result Performing Organization Address [facility] Co de Phone Number [facility] [address] [facility]. [address] * (ABNORMAL) POC Glucose Monitoring Device (10/27/2024 6:00 PM EDT) POC Glucose Monitoring Device 128(H) 70 - 100 mg/dL 10/27/2024 6:00 PM EDT [facility] Blood 10/27/2024 6:00 PM EDT 10/27/2024 6:00 PM EDT Harvey Domínguez III, MD POINT OF CARE TEST ORDERABLES Final Result Performing Organization Address [facility] Co de Phone Number [facility] [address] [facility]. [address] * Lactic Acid, STAT (10/27/2024 5:41 PM EDT) Lactate 0.5 0.5 - 2.2 mmol/L 10/27/2024 6:28 PM EDT [facility] Plasma 10/27/2024 5:41 PM EDT 10/27/2024 5:49 PM EDT Narrative [facility] - 10/27/2024 6:28 PM EDT Redraw us John Moreno MD LAB BLOOD ORDERABLES Final R esult Performing Organization Address [facility] Co de Phone Number [facility] [address] [facility]. [address] * (ABNORMAL) Hepatic Function Panel, STAT (10/27/2024 5:13 PM EDT) Total Bilirubin 1.7(H) 0.0 - 1.5 mg/dL 10/27/2024 5:50 PM EDT [facility] Bilirubin, Direct 1.17(H) 0.00 - 0.40 mg/dL 10/27/2024 5:50 PM EDT [facility] AST 60(H) 13 - 39 U/L 10/27/2024 5:50 PM EDT [facility] ALT 134(H) 7 - 52 U/L 10/27/2024 5:50 PM EDT [facility] Alkaline Phosphatase 27(L) 36 - 125 U/L 10/27/2024 5:50 PM EDT [facility] Total Protein 4.1(L) 6.4 - 8.9 g/dL 10/27/2024 5:50 PM EDT [facility] Albumin 2.9(L) 3.5 - 5.7 g/dL 10/27/2024 5:50 PM EDT [facility] Bilirubin, Indirect 0.53 0.00 - 1.10 mg/dL 10/27/2024 5:50 PM EDT [facility] Plasma 10/27/2024 5:13 PM EDT 10/27/2024 5:23 PM EDT us Shay Plata MD LAB BLOOD ORDERABLES Final Result [facility] [address] [place] [address], [facility] * (ABNORMAL) TEG-Bypass/ECMO/Liver HN (Factor function, Platelet/Fibrin Clot Strength w/Clot Breakdown, Heparinase In All Channels) (10/27/2024 5:13 PM EDT) [facility] Citrated Kaolin Reaction Time (TEGECMOLIVER) 8.0 4.6 - 9.1 minutes 10/27/2024 6:56 PM EDT [facility] Citrated Kaolin W/Heparinase Reaction Time (TEGECMOLIVER) 6.8 4.3 - 8.3 minutes 10/27/2024 6:56 PM EDT [facility] Citrated Kaolin Maximum Amplitude (TEGECMOLIVER) 55.4 52.0 - 69.0 mm 10/27/2024 6:56 PM EDT [facility] Citrated Functional Fibrinogen W/Heparinase Maximum Amplitude(TEGEC MOLIVER) 22.9 15.0 - 34.0 mm 10/27/2024 6:56 PM EDT [facility] Citrated Rapid Teg W/Heparinase Maximum Amplitude (TEGECMOLIVER) 50.8(L) 53.0 - 69.0 mm 10/27/2024 6:56 PM EDT [facility] Citrated Kaolin w/Heparinase Percent Lysis (TEGECMOLIVER) 0.1 0.0 - 3.2 % 10/27/2024 6:56 PM EDT [facility] Whole Blood (Citrate) 10/27/2024 5:13 PM EDT 10/27/2024 5:20 PM EDT Result [facility] Kemar Sahni MD LAB BLOOD ORDERABLES Final Result Performing Organization Address [facility] Co de Phone Number [facility] [address] [facility]. [address] * (ABNORMAL) Protime-INR (10/27/2024 5:13 PM EDT) Protime 15.2(H) 12.1 - 15.1 seconds 10/27/2024 5:40 PM EDT [facility] INR 1.1 0.9 - 1.1 10/27/2024 5:40 PM EDT [facility] Comment: RECOMMENDED THERAPEUTIC RANGES USING INR : Stable oral anticoagulant therapy: 2.0 - 3.0 Mechanical prosthetic heart valve: 2.5 - 3.5 Recurrent acute myocardial infarction: 2.5 - 3.5 Plasma 10/27/2024 5:13 PM EDT 10/27/2024 5:23 PM EDT Kemar Sahni MD LAB BLOOD ORDERABLES Final Result Performing Organization Address City/[facility] Co de Phone Number [facility] [address] [facility]. [address] * Magnesium (10/27/2024 5:13 PM EDT) Magnesium 2.4 1.5 - 2.5 mg/dL 10/27/2024 5:53 PM EDT [facility] Plasma 10/27/2024 5:13 PM EDT 10/27/2024 5:23 PM EDT Kemar Sahni MD LAB BLOOD ORDERABLES Final Result [facility] [address] [facility]. [address] * (ABNORMAL) Hepatic Function Panel (10/27/2024 5:13 PM EDT) Total Bilirubin 1.7(H) 0.0 - 1.5 mg/dL 10/27/2024 5:53 PM EDT [facility] Bilirubin, Direct 1.10(H) 0.00 - 0.40 mg/dL 10/27/2024 5:53 PM EDT [facility] AST 62(H) 13 - 39 U/L 10/27/2024 5:53 PM EDT [facility] ALT 134(H) 7 - 52 U/L 10/27/2024 5:53 PM EDT [facility] Alkaline Phosphatase 27(L) 36 - 125 U/L 10/27/2024 5:53 PM EDT [facility] Total Protein 4.1(L) 6.4 - 8.9 g/dL 10/27/2024 5:53 PM EDT [facility] Albumin 2.9(L) 3.5 - 5.7 g/dL 10/27/2024 5:53 PM EDT [facility] Bilirubin, Indirect 0.60 0.00 - 1.10 mg/dL 10/27/2024 5:53 PM EDT [facility] Plasma 10/27/2024 5:13 PM EDT 10/27/2024 5:23 PM EDT Kemar Sahni MD LAB BLOOD ORDERABLES Final Result [facility] [address] [place] [facility]. [address] * (ABNORMAL) Renal Function Panel w/EGFR (10/27/2024 5:13 PM EDT) Sodium 142 133 - 146 mmol/L 10/27/2024 5:53 PM EDT [facility] Potassium 3.4(L) 3.5 - 5.3 mmol/L 10/27/2024 5:53 PM EDT [facility] Chloride 109 98 - 110 mmol/L 10/27/2024 5:53 PM EDT [facility] CO2 22 21 - 33 mmol/L 10/27/2024 5:53 PM EDT [facility] Anion Gap 11 3 - 16 mmol/L 10/27/2024 5:53 PM EDT [facility] BUN 61(H) 7 - 25 mg/dL 10/27/2024 5:53 PM EDT [facility] Creatinine 2.42(H) 0.60 - 1.30 mg/dL 10/27/2024 5:53 PM EDT [facility] Glucose 125(H) 70 - 100 mg/dL 10/27/2024 5:53 PM EDT [facility] Calcium 8.8 8.6 - 10.3 mg/dL 10/27/2024 5:53 PM EDT [facility] Phosphorus 5.7(H) 2.1 - 4.7 mg/dL 10/27/2024 5:53 PM EDT [facility] Albumin 2.9(L) 3.5 - 5.7 g/dL 10/27/2024 5:53 PM EDT [facility] Osmolality, Calculated 313(H) 278 - 305 mOsm/kg 10/27/2024 5:53 PM EDT [facility] EGFR 34 10/27/2024 5:53 PM EDT [facility] Comment:As of [...] Sahni MD LAB BLOOD ORDERABLES Final Result [facility] [address] [place] [address], [facility] * (ABNORMAL) CBC (10/27/2024 5:13 PM EDT) WBC 4.9 3.8 - 10.8 10E3/uL 10/27/2024 6:14 PM EDT [facility] RBC 2.44(L) 4.20 - 5.80 10E6/uL 10/27/2024 6:14 PM EDT [facility] Hemoglobin 7.4(L) 13.2 - 17.1 g/dL 10/27/2024 6:14 PM EDT [facility] Hematocrit 21.4(L) 38.5 - 50.0 % 10/27/2024 6:14 PM EDT [facility] MCV 87.6 80.0 - 100.0 fL 10/27/2024 6:14 PM EDT [facility] MCH 30.3 27.0 - 33.0 pg 10/27/2024 6:14 PM EDT [facility] MCHC 34.6 32.0 - 36.0 g/dL 10/27/2024 6:14 PM EDT [facility] RDW 19.6(H) 11.0 - 15.0 % 10/27/2024 6:14 PM EDT [facility] Platelets 47(L) 140 - 400 10E3/uL 10/27/2024 6:14 PM EDT [facility] Comment: CNV Specimen checked for clots. None detected. MPV 8.1 7.5 - 11.5 fL 10/27/2024 6:14 PM EDT [facility] Whole Blood 10/27/2024 5:13 PM EDT 10/27/2024 5:23 PM EDT Kemar Sahni MD LAB BLOOD ORDERABLES Final Result Performing Organization Address City/[facility]/ZIP Co de Phone Number [facility] [address] * (ABNORMAL) POC Glucose Monitoring Device (10/27/2024 3:57 PM EDT) [facility] POC Glucose Monitoring Device 131(H) 70 - 100 mg/dL 10/27/2024 3:58 PM EDT [facility] Blood 10/27/2024 3:57 PM EDT 10/27/2024 3:58 PM EDT Harvey Domínguez III, MD POINT OF CARE TEST ORDERABLES Final Result Performing Organization Address [facility] Co de Phone Number [facility] [address] * (ABNORMAL) CBC, STAT (10/27/2024 2:40 PM EDT) [facility] WBC 5.8 3.8 - 10.8 10E3/uL 10/27/2024 2:54 PM EDT [facility] RBC 2.43(L) 4.20 - 5.80 10E6/uL 10/27/2024 2:54 PM EDT [facility] Hemoglobin 7.5(L) 13.2 - 17.1 g/dL 10/27/2024 2:54 PM EDT [facility] Hematocrit 21.5(L) 38.5 - 50.0 % 10/27/2024 2:54 PM EDT [facility] MCV 88.2 80.0 - 100.0 fL 10/27/2024 2:54 PM EDT [facility] MCH 30.7 27.0 - 33.0 pg 10/27/2024 2:54 PM EDT [facility] MCHC 34.8 32.0 - 36.0 g/dL 10/27/2024 2:54 PM EDT [facility] RDW 19.1(H) 11.0 - 15.0 % 10/27/2024 2:54 PM EDT [facility] Platelets 50(L) 140 - 400 10E3/uL 10/27/2024 2:54 PM EDT [facility] MPV 7.5 7.5 - 11.5 fL 10/27/2024 2:54 PM EDT [facility] Whole Blood 10/27/2024 2:40 PM EDT 10/27/2024 2:44 PM EDT us John Moreno MD LAB BLOOD ORDERABLES Final R esult [facility] [address] [place] [address], [facility] * (ABNORMAL) Blood Gas, Arterial, STAT (10/27/2024 2:40 PM EDT) O2 Sat, Arterial 98 10/27/2024 2:46 PM EDT [facility] FIO2 RA 10/27/2024 2:46 PM EDT [facility] pH, Arterial 7.37 7.35 - 7.45 10/27/2024 2:46 PM EDT [facility] pCO2, Arterial 35 35 - 45 mm Hg 10/27/2024 2:46 PM EDT [facility] pO2, Arterial 92 80 - 100 mm Hg 10/27/2024 2:46 PM EDT [facility] HCO3, Arterial 21(L) 22 - 26 mmol/L 10/27/2024 2:46 PM EDT [facility] CO2 Content,Arteri al 21(L) 23 - 27 mmol/L 10/27/2024 2:46 PM EDT [facility] Base Excess, Arterial -4.6(L) -2.0 - 3.0 mmol/L 10/27/2024 2:46 PM EDT [facility] %HBO2, Arterial 95.4 95.0 - 98.0 % 10/27/2024 2:46 PM EDT [facility] Carboxyhemoglo bin, Arterial 1.6 % 10/27/2024 2:46 PM EDT [facility] Comment: CARBOXYHEMOGLOBIN (CO) REFERENCE RANGES: Non-Smokers: <2 % Smokers: <8 % TOXIC: >20 % Methemoglobin, Arterial 1.0 0.0 - 1.5 % 10/27/2024 2:46 PM EDT [facility] Reduced hemoglobin, Arterial 2.1 0.0 - 5.0 % 10/27/2024 2:46 PM EDT [facility] Blood, Arterial 10/27/2024 2 :40 PM EDT 10/27/2024 2:44 PM EDT Narrative [facility] - 10/27/2024 2:46 PM EDT Post extubation John Moreno MD LAB BLOOD ORDERABLES Final R esult [facility] [address] [facility]. [address] * (ABNORMAL) POC Glucose Monitoring Device (10/27/2024 2:06 PM EDT) POC Glucose Monitoring Device 134(H) 70 - 100 mg/dL 10/27/2024 2:06 PM EDT [facility] Blood 10/27/2024 2:06 PM EDT 10/27/2024 2:06 PM EDT Harvey Domínguez III, MD POINT OF CARE TEST ORDERABLES Final Result Performing Organization Address [facility] Co de Phone Number [facility] [address] [facility]. [address] * (ABNORMAL) Blood gas, arterial (10/27/2024 12:35 PM EDT) O2 Sat, Arterial 99 10/27/2024 12:46 PM EDT [facility] FIO2 SBT 30% 10/27/2024 12:46 PM EDT [facility] pH, Arterial 7.35 7.35 - 7.45 10/27/2024 12:46 PM EDT [facility] pCO2, Arterial 37 35 - 45 mm Hg 10/27/2024 12:46 PM EDT [facility] pO2, Arterial 182(H) 80 - 100 mm Hg 10/27/2024 12:46 PM EDT [facility] HCO3, Arterial 21(L) 22 - 26 mmol/L 10/27/2024 12:46 PM EDT [facility] CO2 Content,Arteri al 22(L) 23 - 27 mmol/L 10/27/2024 12:46 PM EDT [facility] Base Excess, Arterial -4.8(L) -2.0 - 3.0 mmol/L 10/27/2024 12:46 PM EDT [facility] %HBO2, Arterial 96.3 95.0 - 98.0 % 10/27/2024 12:46 PM EDT [facility] Carboxyhemoglo bin, Arterial 1.7 % 10/27/2024 12:46 PM EDT [facility] Comment: CARBOXYHEMOGLOBIN (CO) REFERENCE RANGES: Non-Smokers: <2 % Smokers: <8 % TOXIC: >20 % Methemoglobin, Arterial 1.4 0.0 - 1.5 % 10/27/2024 12:46 PM EDT [facility] Reduced hemoglobin, Arterial 0.6 0.0 - 5.0 % 10/27/2024 12:46 PM EDT [facility] Blood, Arterial 10/27/2024 1 2:35 PM EDT 10/27/2024 12:42 PM EDT Narrative [facility] - 10/27/2024 12:46 PM EDT Please obtain post SBT us Shay Sifuentes MD LAB BLOOD ORDERABLES Final Resu lt [facility] [address] [id number] * (ABNORMAL) TEG-Bypass/ECMO/Liver HN (Factor function, Platelet/Fibrin Clot Strength w/Clot Breakdown, Heparinase In All Channels) (10/27/2024 12:07 PM EDT) Citrated Kaolin Reaction Time (TEGECMOLIVER) 7.9 4.6 - 9.1 minutes 10/27/2024 1:24 PM EDT [facility] Citrated Kaolin W/Heparinase Reaction Time (TEGECMOLIVER) 8.3 4.3 - 8.3 minutes 10/27/2024 1:24 PM EDT [facility] Citrated Kaolin Maximum Amplitude (TEGECMOLIVER) 52.0 52.0 - 69.0 mm 10/27/2024 1:24 PM EDT [facility] Citrated Functional Fibrinogen W/Heparinase Maximum Amplitude(TEGEC MOLIVER) 20.1 15.0 - 34.0 mm 10/27/2024 1:24 PM EDT [facility] Citrated Rapid Teg W/Heparinase Maximum Amplitude (TEGECMOLIVER) 49.4(L) 53.0 - 69.0 mm 10/27/2024 1:24 PM EDT [facility] Citrated Kaolin w/Heparinase Percent Lysis (TEGECMOLIVER) 0.0 0.0 - 3.2 % 10/27/2024 1:24 PM EDT [facility] Whole Blood (Citrate) 10/27/2024 12:07 PM EDT 10/27/2024 12:09 PM EDT Kemar Sahni MD LAB BLOOD ORDERABLES Final Result Performing Organization Address City/[facility]/ZIP Co de Phone Number [facility] [address] * (ABNORMAL) POC Glucose Monitoring Device (10/27/2024 12:01 PM EDT) POC Glucose Monitoring Device 121(H) 70 - 100 mg/dL 10/27/2024 12:02 PM EDT [facility] Blood 10/27/2024 12:0 1 PM EDT 10/27/2024 12:01 PM EDT Harvey Domínguez III, MD POINT OF CARE TEST ORDERABLES Final Result [facility] [address] * (ABNORMAL) POC Glucose Monitoring Device (10/27/2024 10:59 AM EDT) POC Glucose Monitoring Device 126(H) 70 - 100 mg/dL 10/27/2024 11:10 AM EDT [facility] Blood 10/27/2024 10:5 9 AM EDT 10/27/2024 11:10 AM EDT Harvey Domínguez III, MD POINT OF CARE TEST ORDERABLES Final Result [facility] [address] [place] [address], [facility] * ECG 12 lead (MUSE) (10/27/2024 10:17 AM EDT) 10/27/2024 10:1 7 AM EDT Narrative MUSE - 10/27/2024 2:51 PM EDT Ventricular Rate: 91 BPM Atrial Rate: 91 BPM P-R Interval: 168 ms QRS Duration: 90 ms QT: 274 ms QTc: 337 ms P Levant: 60 degrees R Levant: -30 degrees T Levant: -15 degrees Diagnosis Line: NORMAL SINUS RHYTHM ^ LEFT AXIS DEVIATION, LEFT ANTERIOR HEMIBLOCK ^ NONSPECIFIC T WAVE CHANGE ^ ABNORMAL ECG ^ ^ Confirmed by MD ROLLY, [facility] ([id number]) on 10/27/2024 2:51:52 PM Shay Sifuentes MD ECG ORDERABLES Final Result Performing Organization Address City/[facility] Co de Phone Number MUSE * (ABNORMAL) POC Glucose Monitoring Device (10/27/2024 10:00 AM EDT) POC Glucose Monitoring Device 121(H) 70 - 100 mg/dL 10/27/2024 10:01 AM EDT [facility] Blood 10/27/2024 10:0 0 AM EDT 10/27/2024 10:01 AM EDT Harvey Domínguez III, MD POINT OF CARE TEST ORDERABLES Final Result [facility] [address] [place] [address], [facility] * US Renal Transplant (10/27/2024 9:51 AM [...] US ORDERABLES Final Result * US Duplex Qyf-Uke-Lxnhawk Comp (10/27/2024 9:51 AM EDT) Anatomical Region [...] EXAM: US ABDOMEN LIMITED EXAM: US DUPLEX [id number] COMPLETE INDICATION: Post-op liver transplant COMPARISON: None [...] absent.. Pancreas: Obscured by overlying bowel gas. [place] right kidney: 12.5 cm in length. Normal [...] EXAM: US ABDOMEN LIMITED EXAM: US DUPLEX [id number] COMPLETE INDICATION: Post-op liver transplant COMPARISON: None [...] absent.. Pancreas: Obscured by overlying bowel gas. [place] right kidney: 12.5 cm in length. Normal [...] IMG US ORDERABLES Final Result * US Abdomen [...] EXAM: US ABDOMEN LIMITED EXAM: US DUPLEX [id number] COMPLETE INDICATION: Post-op liver transplant COMPARISON: None [...] absent.. Pancreas: Obscured by overlying bowel gas. [place] right kidney: 12.5 cm in length. Normal [...] EXAM: US ABDOMEN LIMITED EXAM: US DUPLEX [id number] COMPLETE INDICATION: Post-op liver transplant COMPARISON: None [...] absent.. Pancreas: Obscured by overlying bowel gas. [place] right kidney: 12.5 cm in length. Normal [...] 10:38 AM EDT us Sveta Judge MD [facility] US ORDERABLES Final Result * CARISA Rhythm Strip - Scan (10/27/2024 9:25 AM EDT) us Scanning [place]hi SCAN DOCS - NO RESULTS Final Res ult * (ABNORMAL) POC Glucose Monitoring Device (10/27/2024 9:05 AM EDT) [facility] POC Glucose Monitoring Device 118(H) 70 - 100 mg/dL 10/27/2024 9:06 AM EDT [facility] Blood 10/27/2024 9:05 AM EDT 10/27/2024 9:06 AM EDT us Harvey Domínguez III, MD POINT OF CARE TEST ORDERABLES Final Result [facility] [address] [place] [address], [facility] * X-ray Portable Chest (10/27/2024 8:58 AM [...] (ABNORMAL) Protime-INR, STAT (10/27/2024 8:16 AM EDT) Pathologist [facility] Protime 16.2(H) 12.1 - 15.1 seconds 10/27/2024 8:35 AM EDT [facility] INR 1.2(H) 0.9 - 1.1 10/27/2024 8:35 AM EDT [facility] Comment: RECOMMENDED THERAPEUTIC RANGES USING INR : Stable oral anticoagulant therapy: 2.0 - 3.0 Mechanical prosthetic heart valve: 2.5 - 3.5 Recurrent acute myocardial infarction: 2.5 - 3.5 Plasma 10/27/2024 8:16 AM EDT 10/27/2024 8:20 AM EDT John Moreno MD LAB BLOOD ORDERABLES Final R esult Performing Organization Address City/[facility]/ZIP Co de Phone Number [facility] [address] * Magnesium (10/27/2024 8:00 AM EDT) [facility] Magnesium 1.8 1.5 - 2.5 mg/dL 10/27/2024 10:50 AM EDT [facility] Plasma 10/27/2024 8:00 AM EDT 10/27/2024 10:31 AM EDT Kemar Sahni MD LAB BLOOD ORDERABLES Final Result [facility] [address] * (ABNORMAL) Renal Function Panel w/EGFR (10/27/2024 8:00 AM EDT) Pathologist [facility] Sodium 142 133 - 146 mmol/L 10/27/2024 10:18 AM EDT [facility] Potassium 3.0(L) 3.5 - 5.3 mmol/L 10/27/2024 10:18 AM EDT [facility] Chloride 109 98 - 110 mmol/L 10/27/2024 10:18 AM EDT [facility] CO2 21 21 - 33 mmol/L 10/27/2024 10:18 AM EDT [facility] Anion Gap 12 3 - 16 mmol/L 10/27/2024 10:18 AM EDT [facility] BUN 59(H) 7 - 25 mg/dL 10/27/2024 10:18 AM EDT [facility] Creatinine 2.54(H) 0.60 - 1.30 mg/dL 10/27/2024 10:18 AM EDT [facility] Glucose 111(H) 70 - 100 mg/dL 10/27/2024 10:18 AM EDT [facility] Calcium 9.1 8.6 - 10.3 mg/dL 10/27/2024 10:18 AM EDT [facility] Phosphorus 5.5(H) 2.1 - 4.7 mg/dL 10/27/2024 10:18 AM T [facility] Albumin 3.0(L) 3.5 - 5.7 g/dL 10/27/2024 10:18 AM [facility] Osmolality, Calculated 311(H) 278 - 305 mOsm/kg 10/27/2024 10:18 AM [facility] EGFR 32 10/27/2024 10:18 AM [facility] Comment:As of 2021, the estimated [...] 8:00 AM EDT 10/27/2024 9:58 AM EDT Kemar Sahni MD LAB BLOOD ORDERABLES Final Result [facility] [address] * (ABNORMAL) Hepatic Function Panel, STAT (10/27/2024 8:00 AM EDT) Total Bilirubin 1.3 0.0 - 1.5 mg/dL 10/27/2024 8:51 AM EDT [facility] Bilirubin, Direct 0.93(H) 0.00 - 0.40 mg/dL 10/27/2024 8:51 AM EDT [facility] AST 88(H) 13 - 39 U/L 10/27/2024 8:51 AM EDT [facility] ALT 149(H) 7 - 52 U/L 10/27/2024 8:51 AM EDT [facility] Alkaline Phosphatase 26(L) 36 - 125 U/L 10/27/2024 8:51 AM EDT [facility] Total Protein 4.0(L) 6.4 - 8.9 g/dL 10/27/2024 8:51 AM EDT [facility] Albumin 3.0(L) 3.5 - 5.7 g/dL 10/27/2024 8:51 AM EDT [facility] Bilirubin, Indirect 0.37 0.00 - 1.10 mg/dL 10/27/2024 8:51 AM EDT [facility] Plasma 10/27/2024 8:00 AM EDT 10/27/2024 8:20 AM EDT Harvey Domínguez III, MD LAB BLOOD ORDERABLE S Final Result [facility] [address] [facility]. [address] * (ABNORMAL) Lactic Acid, STAT (10/27/2024 8:00 AM EDT) Lactate 0.4(L) 0.5 - 2.2 mmol/L 10/27/2024 8:43 AM EDT [facility] Plasma 10/27/2024 8:00 AM EDT 10/27/2024 8:20 AM EDT us Harvey Domínguez III, MD LAB BLOOD ORDERABLE S Final Result Performing Organization Address City/State/[facility] Co de Phone Number [facility] [address] [place], [place] [address] * (ABNORMAL) Blood Gas, Arterial, STAT (10/27/2024 8:00 AM EDT) O2 Sat, Arterial 100 10/27/2024 8:23 AM EDT [facility] pH, Arterial 7.36 7.35 - 7.45 10/27/2024 8:23 AM EDT [facility] pCO2, Arterial 37 35 - 45 mm Hg 10/27/2024 8:23 AM EDT [facility] pO2, Arterial 245(H) 80 - 100 mm Hg 10/27/2024 8:23 AM EDT [facility] HCO3, Arterial 22 22 - 26 mmol/L 10/27/2024 8:23 AM EDT [facility] CO2 Content,Arteri al 22(L) 23 - 27 mmol/L 10/27/2024 8:23 AM EDT [facility] Base Excess, Arterial -4.2(L) -2.0 - 3.0 mmol/L 10/27/2024 8:23 AM EDT [facility] %HBO2, Arterial 96.5 95.0 - 98.0 % 10/27/2024 8:23 AM EDT [facility] Carboxyhemoglo bin, Arterial 2.2 % 10/27/2024 8:23 AM EDT [facility] Comment: CARBOXYHEMOGLOBIN (CO) REFERENCE RANGES: Non-Smokers: <2 % Smokers: <8 % TOXIC: >20 % Methemoglobin, Arterial 1.2 0.0 - 1.5 % 10/27/2024 8:23 AM EDT [facility] Reduced hemoglobin, Arterial 0.0 0.0 - 5.0 % 10/27/2024 8:23 AM EDT [facility] Blood, Arterial 10/27/2024 8 :00 AM EDT 10/27/2024 8:19 AM EDT Narrative [facility] - 10/27/2024 8:23 AM EDT Specimen is beyond 15 minutes from time of collection. Results may be compromised. Review results critically. Kemar Sahni MD LAB BLOOD ORDERABLES Final Result [facility] [address] [place] [address], [facility] * (ABNORMAL) TEG-Bypass/ECMO/Liver HN (Factor function, Platelet/Fibrin Clot Strength w/Clot Breakdown, Heparinase In All Channels) (10/27/2024 8:00 AM EDT) Citrated Kaolin Reaction Time (TEGECMOLIVER) 7.8 4.6 - 9.1 minutes 10/27/2024 9:39 AM EDT [facility] Citrated Kaolin W/Heparinase Reaction Time (TEGECMOLIVER) 8.0 4.3 - 8.3 minutes 10/27/2024 9:39 AM EDT [facility] Citrated Kaolin Maximum Amplitude (TEGECMOLIVER) 52.7 52.0 - 69.0 mm 10/27/2024 9:39 AM EDT [facility] Citrated Functional Fibrinogen W/Heparinase Maximum Amplitude(TEGEC MOLIVER) 19.0 15.0 - 34.0 mm 10/27/2024 9:39 AM EDT [facility] Citrated Rapid Teg W/Heparinase Maximum Amplitude (TEGECMOLIVER) 49.5(L) 53.0 - 69.0 mm 10/27/2024 9:39 AM EDT [facility] Citrated Kaolin w/Heparinase Percent Lysis (TEGECMOLIVER) 0.0 0.0 - 3.2 % 10/27/2024 9:39 AM EDT [facility] Whole Blood (Citrate) 10/27/2024 8:00 AM EDT 10/27/2024 8:19 AM EDT Result [facility] Kemar Sahni MD LAB BLOOD ORDERABLES Final Result Performing Organization Address City/[facility]/ZIP Co de Phone Number [facility] [address] [facility]. [address] * (ABNORMAL) Katie-Watkins virus VCA IgG Antibody (10/27/2024 8:00 AM EDT) EBV VCA IgG Positive( A) Negative 10/27/2024 11:30 AM EDT [facility] Comment:Presence of detectab le VCA IgG antibodies. 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 EBV IGG NUM 314.00(H) 0.00 - 17.99 U/mL 10/27/2024 11:30 AM EDT [facility] Serum 10/27/2024 8:00 AM EDT 10/27/2024 8:20 AM EDT Result [facility] Kemar Sahni MD LAB BLOOD ORDERABLES Final Result Performing Organization Address [facility] Co de Phone Number [facility] [address] [place] [facility]. [address] * Hemoglobin A1c (10/27/2024 8:00 AM EDT) Hemoglobin A1C 5.0 4.0 - 5.6 % 10/27/2024 11:12 AM EDT [facility] Comment: Hemoglobin A1c Interpretation Guidelines: [...] 8:00 AM EDT 10/27/2024 8:20 AM EDT Result [facility] Kemar Sahni MD LAB BLOOD ORDERABLES Final Result [facility] [address] [facility]. [address] * (ABNORMAL) POC Glucose Monitoring Device (10/27/2024 7:59 AM EDT) POC Glucose Monitoring Device 113(H) 70 - 100 mg/dL 10/27/2024 7:59 AM EDT [facility] Blood 10/27/2024 7:59 AM EDT 10/27/2024 7:59 AM EDT Harvey Domínguez III, MD POINT OF CARE TEST ORDERABLES Final Result Performing Organization Address City/[facility]/ZIP Co de Phone Number [facility] [address] [facility]. [address] * X-ray Abdomen AP view (10/27/2024 [...] Units (10/27/2024 6:16 AM EDT) Product Code X9397J65 HCLL Unit Number [id number] HCLL Dispense Status Presumed Transfused_PT HCLL Blood Expiration Date HCLL Coding System QTZN125 HCLL Product Code O9050V43 HCLL Unit Number [id number] HCLL Dispense Status Presumed Transfused_PT [facility]LL Blood Expiration Date HCLL Coding System IMEY365 HCLL Blood Bank Product John Pina MD BLOOD BANK PRODUCT ORDERABLES F inal Result HCLL * Prepare Platelets, leukoreduced, 1 Units (10/27/2024 6:16 AM EDT) Product Code K3131J91 HCLL Unit Number [id number] [facility] Dispense Status Presumed Transfused_PT [facility] Blood Expiration Date 834651341006 HCLL Coding System RAYI580 [facility]LL Blood Bank Product Eber Quinones MD BLOOD BANK PRODUCT ORDER PAL Final Result Performing Organization Address [facility] de Phone Number HC[facility] * Prepare Cryoprecipitate, 1 Units (10/27/2024 6:16 AM EDT) Product Code H1653P61 HCLL Unit Number [id number] [facility]LL Dispense Status Presumed Transfused_PT [facility] Blood Expiration Date HCLL Coding System SCDS601 HCLL Product Code F7863L52 HCLL Unit Number [id number] HCLL Dispense Status Presumed Transfused_PT [facility]LL Blood Expiration Date 944198993357 HCLL Coding System EFIR505 HCLL Blood Bank Product Eber Quinones MD BLOOD BANK PRODUCT ORDER PAL Final Result Performing Organization Address [facility] de Phone Number [facility] * Prepare Fresh Frozen Plasma, 10 Units (10/27/2024 6:16 AM EDT) Product Code W3040T53 HCLL Unit Number [id number] [facility]LL Dispense Status Presumed Transfused_PT [facility]LL Blood Expiration Date 125160480538 HCLL Coding System UCZJ199 HCLL Product Code D2973L12 HCLL Unit Number [id number] HCLL Dispense Status Presumed Transfused_PT HCLL Blood Expiration Date 200357885754 HCLL Coding System VGWC971 HCLL Product Code T0533V45 HCLL Unit Number [id number] HCLL Dispense Status Presumed Transfused_PT HCLL Blood Expiration Date HCLL Coding System RJIY151 HCLL Product Code X8318F96 HCLL Unit Number [id number] HCLL Dispense Status Presumed Transfused_PT [facility]LL Blood Expiration Date 017218118171 HCLL Coding System VROF532 HCLL Product Code G1045H38 HCLL Unit Number [id number] HCLL Dispense Status Released from Crossmatch_RE HCLL Blood Expiration Date 700175481964 HCLL Coding System KPTO985 HCLL Product Code V2143A08 HCLL Unit Number [id number] HCLL Dispense Status Released from Crossmatch_RE HCLL Blood Expiration Date HCLL Coding System VKCQ714 HCLL Product Code Y0986D83 HCLL Unit Number [id number] HCLL Dispense Status Presumed Transfused_PT HCLL Blood Expiration Date HCLL Coding System UNST950 HCLL Product Code P5011P73 HCLL Unit Number [id number] HCLL Dispense Status Presumed Transfused_PT HCLL Blood Expiration Date HCLL Coding System FUBB609 HCLL Product Code A6417P54 HCLL Unit Number [id number] HCLL Dispense Status Presumed Transfused_PT HCLL Blood Expiration Date HCLL Coding System TIXM281 HCLL Product Code H7620L56 HCLL Unit Number [id number] HCLL Dispense Status Presumed Transfused_PT HCLL Blood Expiration Date 462281732985 HCLL Coding System XYYT562 HCLL Blood Bank Product us Leandra Og MD BLOOD BANK PRODUCT ORD ERABLES Final Result HC[facility] * Prepare Platelets, leukoreduced, 1 Units (10/27/2024 6:16 AM EDT) Product Code U7157K94 HCLL Unit Number [id number] HCLL Dispense Status Presumed Transfused_PT HCLL Blood Expiration Date 648892659562 HCLL Coding System ISND851 HCLL Blood Bank Product us Ben Blake MD BLOOD BANK PRODUCT ORDERABLES Final Result Performing Organization Address [facility] de Phone Number HCLL * Prepare Fresh Frozen Plasma (10/27/2024 6:15 AM EDT) Product Code F0616P76 HCLL Unit Number [id number] HCLL Dispense Status Presumed Transfused_PT HCLL Blood Expiration Date HCLL Coding System DSRF377 HCLL Product Code Y8629Z79 HCLL Unit Number [id number] HCLL Dispense Status Released from Crossmatch_RE HCLL Blood Expiration Date HCLL Coding System YHOS656 HCLL Product Code R0438I69 HCLL Unit Number [id number] HCLL Dispense Status Presumed Transfused_PT HCLL Blood Expiration Date HCLL Coding System AWPA083 HCLL Product Code E1447O27 HCLL Unit Number [id number] HCLL Dispense Status Presumed Transfused_PT HCLL Blood Expiration Date HCLL Coding System APUJ114 HCLL Product Code W7402E38 HCLL Unit Number [id number] HCLL Dispense Status Released from Crossmatch_RE HCLL Blood Expiration Date HCLL Coding System FWXL089 HCLL us Attending Provider Unknown BLOOD BANK PRODUCT OR DERABLES Final Result Performing Organization Address [facility] de Phone Number HC[facility] * Prepare RBC, leukoreduced (10/27/2024 6:15 AM EDT) Product Code K9955Z42 HCLL Unit Number [id number] HCLL Dispense Status Presumed Transfused_PT HCLL Blood Expiration Date 743375637419 HCLL Coding System PMYU805 HCLL Product Code Z2078U09 HCLL Unit Number [id number] HCLL Dispense Status Released from Crossmatch_RE HCLL Blood Expiration Date HCLL Coding System XORV505 HCLL Product Code X1172Z50 HCLL Unit Number [id number] HCLL Dispense Status Released from Crossmatch_RE HCLL Blood Expiration Date HCLL Coding System CCZL538 HCLL Product Code D0741T85 HCLL Unit Number [id number] HCLL Dispense Status Released from Crossmatch_RE HCLL Blood Expiration Date 850140462705 HCLL Coding System HZEN842 HCLL Product Code N9232A82 HCLL Unit Number [id number] HCLL Dispense Status Released from Crossmatch_RE HCLL Blood Expiration Date HCLL Coding System RAYH990 HCLL us Attending Provider Unknown BLOOD BANK PRODUCT OR DERABLES Final Result [facility] * Prepare RBC, leukoreduced, 10 Units (10/27/2024 6:15 AM EDT) Product Code I3904M03 HCLL Unit Number [id number] HCLL Dispense Status Presumed Transfused_PT HCLL Blood Expiration Date HCLL Coding System OAZX396 HCLL Product Code A6357W18 HCLL Unit Number [id number] HCLL Dispense Status Presumed Transfused_PT HCLL Blood Expiration Date HCLL Coding System SMUU508 HCLL Product Code D3473T88 HCLL Unit Number [id number] HCLL Dispense Status Presumed Transfused_PT HCLL Blood Expiration Date HCLL Coding System MROC800 HCLL Product Code S7127T68 HCLL Unit Number [id number] HCLL Dispense Status Presumed Transfused_PT HCLL Blood Expiration Date HCLL Coding System KBCC198 HCLL Product Code U5992P74 HCLL Unit Number [id number] HCLL Dispense Status Presumed Transfused_PT HCLL Blood Expiration Date HCLL Coding System OEYN288 HCLL Product Code U7148B77 HCLL Unit Number [id number] HCLL Dispense Status Presumed Transfused_PT HCLL Blood Expiration Date 560309106627 HCLL Coding System LGVL112 HCLL Product Code T4097T30 HCLL Unit Number [id number] HCLL Dispense Status Presumed Transfused_PT HCLL Blood Expiration Date 387394653576 HCLL Coding System LQEQ879 HCLL Product Code E1271Q85 HCLL Unit Number [id number] HCLL Dispense Status Presumed Transfused_PT HCLL Blood Expiration Date 593511885078 HCLL Coding System PVBY322 HCLL Product Code J9570L57 HCLL Unit Number [id number] HCLL Dispense Status Presumed Transfused_PT HCLL Blood Expiration Date 398416822402 HCLL Coding System XGFO144 HCLL Product Code P8881R75 HCLL Unit Number [id number] HCLL Dispense Status Presumed Transfused_PT HCLL Blood Expiration Date 883318572422 HCLL Coding System YALK609 HCLL Blood Bank Product us Leandra Og MD BLOOD BANK PRODUCT ORD ERABLES Final Result [facility] * Transfuse Platelets (10/27/2024 6:09 AM EDT) us Ben Blake MD NURSING TREATMENT ORDERABLES - BLOOD ADMIN Final Result * (ABNORMAL) Arterial Blood Gas Panel (10/27/2024 6:09 AM EDT) O2Sat (ABGP) 100 10/27/2024 6:17 AM EDT [facility] pH (ABGP) 7.30(L) 7.35 - 7.45 10/27/2024 6:17 AM EDT [facility] PCO2 (ABGP) 41 35 - 45 mm Hg 10/27/2024 6:17 AM EDT [facility] PO2 (ABGP) 192(H) 80 - 100 mm Hg 10/27/2024 6:17 AM EDT [facility] HCO3 (ABGP) 21(L) 22 - 26 mmol/L 10/27/2024 6:17 AM EDT [facility] CO2 Content (ABGP) 22(L) 23 - 27 mmol/L 10/27/2024 6:17 AM [facility] Base Excess (ABGP) -5.7(L) -2.0 - 3.0 mmol/L 10/27/2024 6:17 AM EDT [facility] Sodium (ABGP) 138 136 - 146 mEq/L 10/27/2024 6:17 AM [facility] Potassium (ABGP) 3.3(L) 3.5 - 5.0 mEq/L 10/27/2024 6:17 AM [facility] Comment:In the event of in-v itro hemolysis, potassium results may be falsely elevated. Always interpret lab results in conjunction with clinical findings. If hemolysis is suspected, a serum sample may be collected for repeat assessment of potassium. Calcium, Free (ABGP) 5.28 4.50 - 5.30 mg/dL 10/27/2024 6:17 AM [facility] Glucose (ABGP) 112(H) 70 - 100 mg/dL 10/27/2024 6:17 AM [facility] Comment:There is interferenc e with whole blood glucose results on this method when Hematocrit is <25% or >60%. HCT (ABGP) 20.0(L) 40.0 - 52.0 % 10/27/2024 6:17 AM [facility] HGB (ABGP) 6.5(L) 14.0 - 18.0 g/dL 10/27/2024 6:17 AM [facility] %HBO2 (ABGP) 96.8 95.0 - 98.0 % 10/27/2024 6:17 AM [facility] Carboxyhgb (ABGP) 2.1 % 6:17 AM [facility] Comment: CARBOXYHEMOGLOBIN (CO) REFERENCE RANGES: Non-Smokers: <2 % Smokers: <8 % TOXIC: >20 % Methemoglobin (ABGP) 1.0 0.0 - 1.5 % 10/27/2024 6:17 AM [facility] Reduced Hemoglobin (ABGP) 0.2 0.0 - 5.0 % 10/27/2024 6:17 AM EDT [facility] Lactic Acid (ABGP) 0.4(L) 0.5 - 1.6 mmol/L 10/27/2024 6:17 AM EDT [facility] Blood, Arterial 10/27/2024 6 :09 AM EDT 10/27/2024 6:14 AM EDT Ben Blake MD LAB BLOOD ORDERABLES Final Re sult [facility] [address] [facility]. [address] * Transfuse Fresh Frozen Plasma (10/27/2024 5:49 AM EDT) Ben Blake MD NURSING TREATMENT ORDERABLES - BLOOD ADMIN Final Result * Transfuse Cryoprecipitate (10/27/2024 4:56 AM EDT) Ben Blake MD NURSING TREATMENT ORDERABLES - BLOOD ADMIN Final Result * Transfuse Cryoprecipitate (10/27/2024 4:49 AM EDT) Ben Blake MD NURSING TREATMENT ORDERABLES - BLOOD ADMIN Final Result * (ABNORMAL) POC Glucose Monitoring Device (10/27/2024 4:46 AM EDT) [facility] POC Glucose Monitoring Device 124(H) 70 - 100 mg/dL 10/27/2024 4:47 AM EDT [facility] Blood 10/27/2024 4:46 AM EDT 10/27/2024 4:47 AM EDT Harvey Domínguez III, MD POINT OF CARE TEST ORDERABLES Final Result [facility] [address] * Transfuse Platelets (10/27/2024 4:24 AM EDT) Ben Blake MD NURSING TREATMENT [...] O2Sat (ABGP) 100 10/27/2024 3:21 AM EDT [facility] pH (ABGP) 7.32(L) 7.35 - 7.45 10/27/2024 3:21 AM EDT [facility] PCO2 (ABGP) 38 35 - 45 mm Hg 10/27/2024 3:21 AM EDT [facility] PO2 (ABGP) 176(H) 80 - 100 mm Hg 10/27/2024 3:21 AM EDT [facility] HCO3 (ABGP) 20(L) 22 - 26 mmol/L 10/27/2024 3:21 AM EDT [facility] CO2 Content (ABGP) 21(L) 23 - 27 mmol/L 10/27/2024 3:21 AM EDT [facility] Base Excess (ABGP) -6.0(L) -2.0 - 3.0 mmol/L 10/27/2024 3:21 AM EDT [facility] Sodium (ABGP) 138 136 - 146 mEq/L 10/27/2024 3:21 AM EDT [facility] Potassium (ABGP) 3.0(L) 3.5 - 5.0 mEq/L 10/27/2024 3:21 AM EDT [facility] Comment:In the event of in-v itro hemolysis, potassium results may be falsely elevated. Always interpret lab results in conjunction with clinical findings. If hemolysis is suspected, a serum sample may be collected for repeat assessment of potassium. Calcium, Free (ABGP) 5.28 4.50 - 5.30 mg/dL 10/27/2024 3:21 AM EDT [facility] Glucose (ABGP) 108(H) 70 - 100 mg/dL 10/27/2024 3:21 AM EDT [facility] Comment:There is interferenc e with whole blood glucose results on this method when Hematocrit is <25% or >60%. HCT (ABGP) 22.0(L) 40.0 - 52.0 % 10/27/2024 3:21 AM EDT [facility] HGB (ABGP) 7.3(L) 14.0 - 18.0 g/dL 10/27/2024 3:21 AM EDT [facility] %HBO2 (ABGP) 97.3 95.0 - 98.0 % 10/27/2024 3:21 AM EDT [facility] Carboxyhgb (ABGP) 1.9 % 025 3:21 AM EDT [facility] Comment: CARBOXYHEMOGLOBIN (CO) REFERENCE RANGES: Non-Smokers: <2 % Smokers: <8 % TOXIC: >20 % Methemoglobin (ABGP) 0.8 0.0 - 1.5 % 10/27/2024 3:21 AM EDT [facility] Reduced Hemoglobin (ABGP) 0.0 0.0 - 5.0 % 10/27/2024 3:21 AM EDT [facility] Lactic Acid (ABGP) 0.3(L) 0.5 - 1.6 mmol/L 10/27/2024 3:21 AM EDT [facility] Blood, Arterial 10/27/2024 3 :07 AM EDT 10/27/2024 3:14 AM EDT us Ben Blake MD LAB BLOOD ORDERABLES Final Re sult Performing Organization Address City/State/[facility] Co de Phone Number [facility] [address] [place] [id number] * Surgical Pathology Exam (10/27/2024 2:38 AM EDT) Tissue LEFT KIDNEY STRUCTURE / Unknown 10/27/2024 2:38 AM EDT Narrative [facility] - 10/27/2024 12:00 AM EDT CASE: [id number] PATIENT: BLAIR GILBERT Clinical History: Transplant kidney with bile duct reconstruction Pre-Operative Diagnosis: Acute kidney injury superimposed on CKD Post-Operative Diagnosis: None Given Specimen(s) Submitted: [place] baseline renal biopsy ; B. right lobe liver biopsy; C. left lobe liver biopsy CPT Code(s): 03559 X 1; 00899 X 2; 71477 X 4 Additional Information: FINAL DIAGNOSIS: A. [...] parenchyma, which is entirely submitted in cassette [email or web address] A1. (NAA Mckeon/rr) B. Received in formalin, labeled with the patient's name Blair Gilbert and right lobe liver biopsy are two green-brown tissue cores measuring 1.8 and 2.0 cm in length, each with a diameter of 0.1 cm, which are entirely submitted between blue biopsy sponges in cassette [email or web address] B1-B2. (NAA Mckeon/ns) C. Received in formalin, labeled with the patient's name Blair Gilbert and left lobe liver biopsy are two green-georges tissue cores measuring 1.2 and 1.4 cm in length, each with a diameter of 0.1 cm, which are entirely submitted between blue biopsy sponges in cassette [id number] C1-C2. (NAA Mckeon/ns) Microscopic Description: I, the attending pathologist, have personally reviewed all prosector/resident work and pathology slides to determine final diagnosis. Control Materials Reacted Appropriately. Final Diagnosis performed by CLARE FALL MD Pathologist Electronically signed 10/31/2024 01:07:09 PM The Pathologist signing this report is located at [facility], [address] [place] [address], [id number], , CLIA ID: [id number] ADDENDUM: A. Kidney, allograft, baseline, wedge biopsy: [...] Pathologist signing this report is located at [facility], [address] [place] [address], [facility], , CLIA ID: [id number] us Kemar Sahni MD PATHOLOGY/CYTOLOGY ORDERABL ES Edited Result - Final Performing Organization Address [facility]/ZIP Co de Phone Number [facility] * Anaerobic culture (10/27/2024 2:15 AM EDT) Culture Result No Anaerobes Isolated in 5 Days [facility] Fluid SPECIMEN FROM KIDNEY / Unknown 10/27/2024 2:15 AM EDT 10/27/2024 4:24 AM EDT Narrative [facility] - 10/31/2024 11:43 AM EDT 1) perfusate us Harvey Domínguez III, MD MICROBIOLOGY - GENE RAL ORDERABLES Final Result Performing Organization Address [facility]/ZIP Co de Phone Number [facility] [address] [place] [address] * Fungus culture (10/27/2024 2:15 AM EDT) Culture Result No Fungus Isolated At 4 Weeks [facility] Fluid SPECIMEN FROM KIDNEY / Unknown 10/27/2024 2:15 AM EDT 10/27/2024 4:24 AM EDT Narrative [facility] - 11/24/2024 7:52 AM EDT 1) perfusate us Harvey Domínguez III, MD MICROBIOLOGY - GENE RAL ORDERABLES Final Result Performing Organization Address [facility] Co de Phone Number [facility] [address] [facility]. [address] * Routine Culture plus Stain (10/27/2024 2:15 AM EDT) Gram Stain Result No Polymorphonuclear Leukocytes Seen [facility] Gram Stain Result No Organisms Seen; [facility] Culture Result No Growth After 3 Days [facility] Fluid SPECIMEN FROM KIDNEY / Unknown 10/27/2024 2:15 AM EDT 10/27/2024 4:24 AM EDT Narrative [facility] - 10/30/2024 9:26 AM EDT 1) perfusate us Harvey Domínguez III, MD MICROBIOLOGY - GENE RAL ORDERABLES Final Result Performing Organization Address [facility] de Phone Number [facility] [address] [facility]. [address] * Transfuse Platelets Transfusion Rate: Per dept routine (10/27/2024 1:52 AM EDT) us John Pina MD NURSING TREATMENT ORDERABLES - BLOOD ADMIN Final Result Performing Organization Address City/[facility] de Phone Number EXTERNAL * Transfuse Platelets Transfusion Rate: Per dept routine, 1 Units (10/27/2024 1:52 AM EDT) us John Pina MD NURSING TREATMENT ORDERABLES - BLOOD ADMIN Final Result Performing Organization Address [facility] de Phone Number EXTERNAL * (ABNORMAL) TEG-Standard Global Hemostasis (Rapid TEG with Heparin Effect, Contains a Baseline TEG) (10/27/2024 1:51 AM EDT) Citrated Kaolin Reaction Time (TEGHEPARINASE) 10.6(H) 4.6 - 9.1 minutes 10/27/2024 2:44 AM EDT [facility] Citrated Rapid Teg Maximum Amplitude (TEGHEPARINASE) 42.3(L) 52.0 - 70.0 mm 10/27/2024 2:44 AM EDT [facility] Citrated Functional Fibrinogen Maximum Amplitude (TEGHEPARINASE) 15.0 15.0 - 32.0 mm 10/27/2024 2:44 AM EDT [facility] Citrated Kaolin W/Heparinase Reaction Time (TEGHEPARINASE) 10.5(H) 4.3 - 8.3 minutes 10/27/2024 2:44 AM EDT [facility] Citrated Kaolin K-Time (TEGHEPARINASE) 2.9(A) 0.8 - 2.1 minutes 10/27/2024 2:44 AM EDT [facility] Citrated Kaolin Angle (TEGHEPARINASE) 60.4(A) 63.0 - 78.0 degrees 10/27/2024 2:44 AM EDT [facility] Citrated Kaolin Maximum Amplitude (TEGHEPARINASE) 42.9(L) 52.0 - 69.0 mm 10/27/2024 2:44 AM EDT [facility] Citrated Functional Fibrinogen- Fibrinogen Level (TEGHEPARINASE) 273.7(L) 278.0 - 581.0 mg/dL 10/27/2024 2:44 AM EDT [facility] Whole Blood (Citrate) 10/27/2024 1:51 AM EDT 10/27/2024 2:03 AM EDT us John Pina MD LAB BLOOD ORDERABLES Final Resu lt [facility] [address] [place] [address], [facility] * (ABNORMAL) POC Glucose Monitoring Device (10/27/2024 1:50 AM EDT) POC Glucose Monitoring Device 121(H) 70 - 100 mg/dL 10/27/2024 1:51 AM EDT [facility] Blood 10/27/2024 1:50 AM EDT 10/27/2024 1:51 AM EDT us Harvey Domínguez III, MD POINT OF CARE TEST ORDERABLES Final Result Performing Organization Address [facility] Co de Phone Number [facility] [address] [facility]. [address] * Transfuse Cryoprecipitate Transfusion Rate: Per dept routine (10/27/2024 1:25 AM EDT) us John Pina MD NURSING TREATMENT ORDERABLES - BLOOD ADMIN Final Result Performing Organization Address [facility] Co de Phone Number EXTERNAL * Transfuse Cryoprecipitate Transfusion Rate: Per dept routine, 1 Units (10/27/2024 1:25 AM EDT) us John Pina MD NURSING TREATMENT ORDERABLES - BLOOD ADMIN Final Result Performing Organization Address City/[facility] Co de Phone Number EXTERNAL * (ABNORMAL) POC Glucose Monitoring Device (10/27/2024 1:21 AM EDT) [facility] POC Glucose Monitoring Device 123(H) 70 - 100 mg/dL 10/27/2024 1:22 AM EDT [facility] Blood 10/27/2024 1:21 AM EDT 10/27/2024 1:21 AM EDT us Harvey Domínguez III, MD POINT OF CARE TEST ORDERABLES Final Result Performing Organization Address [facility] Co de Phone Number [facility] [address] [place] [facility] [place] [address], [facility] * Transfuse Fresh Frozen Plasma Transfusion Rate: Per dept routine (10/27/2024 1:03 AM EDT) us John Pina MD NURSING TREATMENT ORDERABLES - BLOOD ADMIN Final Result Performing Organization Address City/[facility] Co de Phone Number EXTERNAL * Transfuse Fresh Frozen Plasma Transfusion Rate: Per dept routine, 1 Units (10/27/2024 1:03 AM EDT) John Pina MD NURSING TREATMENT ORDERABLES - BLOOD ADMIN Final Result EXTERNAL * Calcium Free, Serum (10/27/2024 12:13 AM EDT) Free Calcium, Ser 5.20 4.40 - 5.40 mg/dL 10/27/2024 12:37 AM EDT [facility] Comment:Free calcium levels vary inversely with pH by approximately 5% for each 0.1 unit of pH change. Assay results have been normalized to pH = 7.40. Serum 10/27/2024 12:1 3 AM EDT 10/27/2024 12:29 AM EDT Narrative [facility] - 10/27/2024 12:37 AM EDT This test has been developed and its performance characteristics determined by [facility] which is certified under the [...] ORDERABLES Final Resu lt Performing Organization Address [facility] Co de Phone Number [facility] [address] [place] [address], [facility] * (ABNORMAL) Blood Gas, Arterial, STAT (10/27/2024 12:13 AM EDT) O2 Sat, Arterial 100 10/27/2024 12:23 AM EDT [facility] FIO2 30 10/27/2024 12:23 AM EDT [facility] pH, Arterial 7.32(L) 7.35 - 7.45 10/27/2024 12:23 AM EDT [facility] pCO2, Arterial 37 35 - 45 mm Hg 10/27/2024 12:23 AM EDT [facility] pO2, Arterial 137(H) 80 - 100 mm Hg 10/27/2024 12:23 AM EDT [facility] HCO3, Arterial 20(L) 22 - 26 mmol/L 10/27/2024 12:23 AM EDT [facility] CO2 Content,Arteri al 20(L) 23 - 27 mmol/L 10/27/2024 12:23 AM EDT [facility] Base Excess, Arterial -6.4(L) -2.0 - 3.0 mmol/L 10/27/2024 12:23 AM EDT [facility] %HBO2, Arterial 96.2 95.0 - 98.0 % 10/27/2024 12:23 AM EDT [facility] Carboxyhemoglo bin, Arterial 1.9 % 10/27/2024 12:23 AM EDT [facility] Comment: CARBOXYHEMOGLOBIN (CO) REFERENCE RANGES: Non-Smokers: <2 % Smokers: <8 % TOXIC: >20 % Methemoglobin, Arterial 1.5 0.0 - 1.5 % 10/27/2024 12:23 AM EDT [facility] Reduced hemoglobin, Arterial 0.4 0.0 - 5.0 % 10/27/2024 12:23 AM EDT [facility] Blood, Arterial 10/27/2024 1 2:13 AM EDT 10/27/2024 12:18 AM EDT us John Pina MD LAB BLOOD ORDERABLES Final Resu lt [facility] [address] * (ABNORMAL) TEG-Bypass/ECMO/Liver HN (Factor function, Platelet/Fibrin Clot Strength w/Clot Breakdown, Heparinase In All Channels) (10/27/2024 12:13 AM EDT) [facility] Signature Citrated Kaolin Reaction Time (TEGECMOLIVER) 9.1 4.6 - 9.1 minutes 10/27/2024 1:43 AM EDT [facility] Citrated Kaolin W/Heparinase Reaction Time (TEGECMOLIVER) 9.7(H) 4.3 - 8.3 minutes 10/27/2024 1:43 AM EDT [facility] Citrated Kaolin Maximum Amplitude (TEGECMOLIVER) <40.0(L) 52.0 - 69.0 mm 10/27/2024 1:43 AM EDT [facility] Citrated Functional Fibrinogen W/Heparinase Maximum Amplitude(TEGEC MOLIVER) 11.9(L) 15.0 - 34.0 mm 10/27/2024 1:43 AM EDT [facility] Citrated Rapid Teg W/Heparinase Maximum Amplitude (TEGECMOLIVER) 31.6(L) 53.0 - 69.0 mm 10/27/2024 1:43 AM EDT [facility] Citrated Kaolin w/Heparinase Percent Lysis (TEGECMOLIVER) 0.0 0.0 - 3.2 % 10/27/2024 1:43 AM EDT [facility] Whole Blood (Citrate) 10/27/2024 12:13 AM EDT 10/27/2024 12:18 AM EDT Kemar Sahni MD LAB BLOOD ORDERABLES Final Result Performing Organization Address [facility] Co de Phone Number [facility] [address] [facility]. [address] * (ABNORMAL) Lactic Acid (10/27/2024 12:13 AM EDT) Lactate 0.2(L) 0.5 - 2.2 mmol/L 10/27/2024 12:59 AM EDT [facility] Plasma 10/27/2024 12:1 3 AM EDT 10/27/2024 12:31 AM EDT Kemar Sahni MD LAB BLOOD ORDERABLES Final Result [facility] [address] * Magnesium (10/27/2024 12:13 AM EDT) Magnesium 1.8 1.5 - 2.5 mg/dL 10/27/2024 12:52 AM EDT [facility] Plasma 10/27/2024 12:1 3 AM EDT 10/27/2024 12:29 AM EDT us Kemar Sahni MD LAB BLOOD ORDERABLES Final Result [facility] [address] [place] [address] * (ABNORMAL) Hepatic Function Panel (10/27/2024 12:13 AM EDT) Total Bilirubin 1.6(H) 0.0 - 1.5 mg/dL 10/27/2024 12:52 AM EDT [facility] Bilirubin, Direct 1.17(H) 0.00 - 0.40 mg/dL 10/27/2024 12:52 AM EDT [facility] AST 157(H) 13 - 39 U/L 10/27/2024 12:52 AM EDT [facility] ALT 261(H) 7 - 52 U/L 10/27/2024 12:52 AM EDT [facility] Alkaline Phosphatase 26(L) 36 - 125 U/L 10/27/2024 12:52 AM EDT [facility] Total Protein 3.8(L) 6.4 - 8.9 g/dL 10/27/2024 12:52 AM EDT [facility] Albumin 2.8(L) 3.5 - 5.7 g/dL 10/27/2024 12:52 AM EDT [facility] Bilirubin, Indirect 0.43 0.00 - 1.10 mg/dL 10/27/2024 12:52 AM EDT [facility] Plasma 10/27/2024 12:1 3 AM EDT 10/27/2024 12:29 AM EDT us Kemar Sahni MD LAB BLOOD ORDERABLES Final Result [facility] [address] [place] [address] * (ABNORMAL) Protime-INR (10/27/2024 12:13 AM EDT) Protime 18.6(H) 12.1 - 15.1 seconds 10/27/2024 12:43 AM EDT [facility] INR 1.5(H) 0.9 - 1.1 10/27/2024 12:43 AM EDT [facility] Comment: RECOMMENDED THERAPEUTIC RANGES USING INR : Stable oral anticoagulant therapy: 2.0 - 3.0 Mechanical prosthetic heart valve: 2.5 - 3.5 Recurrent acute myocardial infarction: 2.5 - 3.5 Plasma 10/27/2024 12:1 3 AM EDT 10/27/2024 12:29 AM EDT us Kemar Sahni MD LAB BLOOD ORDERABLES Final Result [facility] [address] * (ABNORMAL) CBC (10/27/2024 12:13 AM EDT) WBC 5.0 3.8 - 10.8 10E3/uL 10/27/2024 12:59 AM EDT [facility] RBC 2.70(L) 4.20 - 5.80 10E6/uL 10/27/2024 12:59 AM EDT [facility] Hemoglobin 8.5(L) 13.2 - 17.1 g/dL 10/27/2024 12:59 AM EDT [facility] Hematocrit 23.9(L) 38.5 - 50.0 % 10/27/2024 12:59 AM EDT [facility] MCV 88.5 80.0 - 100.0 fL 10/27/2024 12:59 AM EDT [facility] MCH 31.5 27.0 - 33.0 pg 10/27/2024 12:59 AM EDT [facility] MCHC 35.6 32.0 - 36.0 g/dL 10/27/2024 12:59 AM EDT [facility] RDW 20.6(H) 11.0 - 15.0 % 10/27/2024 12:59 AM EDT [facility] Platelets 35(L) 140 - 400 10E3/uL 10/27/2024 12:59 AM EDT [facility] Comment: CNV Specimen checked for clots. None detected. MPV 7.6 7.5 - 11.5 fL 10/27/2024 12:59 AM EDT [facility] Whole Blood 10/27/2024 12:1 3 AM EDT 10/27/2024 12:29 AM EDT Kemar Sahni MD LAB BLOOD ORDERABLES Final Result Performing Organization Address City/State/[facility] Co de Phone Number [facility] [address] [place] [address] * (ABNORMAL) Renal Function Panel w/EGFR (10/27/2024 12:13 AM EDT) Sodium 141 133 - 146 mmol/L 10/27/2024 12:52 AM EDT [facility] Potassium 3.2(L) 3.5 - 5.3 mmol/L 10/27/2024 12:52 AM EDT [facility] Chloride 109 98 - 110 mmol/L 10/27/2024 12:52 AM EDT [facility] CO2 21 21 - 33 mmol/L 10/27/2024 12:52 AM EDT [facility] Anion Gap 11 3 - 16 mmol/L 10/27/2024 12:52 AM EDT [facility] BUN 64(H) 7 - 25 mg/dL 10/27/2024 12:52 AM EDT [facility] Creatinine 2.58(H) 0.60 - 1.30 mg/dL 10/27/2024 12:52 AM EDT [facility] Glucose 126(H) 70 - 100 mg/dL 10/27/2024 12:52 AM EDT [facility] Calcium 8.9 8.6 - 10.3 mg/dL 10/27/2024 12:52 AM EDT [facility] Phosphorus 5.3(H) 2.1 - 4.7 mg/dL 10/27/2024 12:52 AM EDT [facility] Albumin 2.8(L) 3.5 - 5.7 g/dL 10/27/2024 12:52 AM EDT [facility] Osmolality, Calculated 312(H) 278 - 305 mOsm/kg 10/27/2024 12:52 AM EDT [facility] EGFR 31 10/27/2024 12:52 AM EDT [facility] Comment:As of [...] Performing Organization Address City/[facility]/ZIP Co de Phone Number [facility] [address] [facility]. [address] * (ABNORMAL) POC Glucose Monitoring Device (10/27/2024 12:08 AM EDT) POC Glucose Monitoring Device 121(H) 70 - 100 mg/dL 10/27/2024 12:08 AM EDT [facility] Blood 10/27/2024 12:0 8 AM EDT 10/27/2024 12:08 AM EDT Harvey Domínguez III, MD POINT OF CARE TEST ORDERABLES Final Result [facility] [address] [facility]. [address] * (ABNORMAL) POC Glucose Monitoring Device (10/26/2024 11:15 PM EDT) POC Glucose Monitoring Device 120(H) 70 - 100 mg/dL 10/26/2024 11:15 PM EDT [facility] Blood 10/26/2024 11:1 5 PM EDT 10/26/2024 11:15 PM EDT Harvey Domínguez III, MD POINT OF CARE TEST ORDERABLES Final Result [facility] [address] [place] [address], [facility] * (ABNORMAL) TEG-Bypass/ECMO/Liver HN (Factor function, Platelet/Fibrin Clot Strength w/Clot Breakdown, Heparinase In All Channels) (10/26/2024 10:36 PM EDT) [facility] Citrated Kaolin Reaction Time (TEGECMOLIVER) 10.0(H) 4.6 - 9.1 minutes 10/26/2024 11:53 PM EDT [facility] Citrated Kaolin W/Heparinase Reaction Time (TEGECMOLIVER) 10.2(H) 4.3 - 8.3 minutes 10/26/2024 11:53 PM EDT [facility] Citrated Kaolin Maximum Amplitude (TEGECMOLIVER) <40.0(L) 52.0 - 69.0 mm 10/26/2024 11:53 PM EDT [facility] Citrated Functional Fibrinogen W/Heparinase Maximum Amplitude(TEGEC MOLIVER) 11.3(L) 15.0 - 34.0 mm 10/26/2024 11:53 PM EDT [facility] Citrated Rapid Teg W/Heparinase Maximum Amplitude (TEGECMOLIVER) 41.8(L) 53.0 - 69.0 mm 10/26/2024 11:53 PM EDT [facility] Citrated Kaolin w/Heparinase Percent Lysis (TEGECMOLIVER) 0.0 0.0 - 3.2 % 10/26/2024 11:53 PM EDT [facility] Whole Blood (Citrate) 10/26/2024 10:36 PM EDT 10/26/2024 10:43 PM EDT Kemar Sahni MD LAB BLOOD ORDERABLES Final Result Performing Organization Address City/[facility]/ZIP Co de Phone Number [facility] [address] [place] [facility]. [address] * (ABNORMAL) POC Glucose Monitoring Device (10/26/2024 10:14 PM EDT) POC Glucose Monitoring Device 124(H) 70 - 100 mg/dL 10/26/2024 11:11 PM EDT [facility] Blood 10/26/2024 10:1 4 PM EDT 10/26/2024 11:11 PM EDT us Harvey Domínguez III, MD POINT OF CARE TEST ORDERABLES Final Result Performing Organization Address [facility] Co de Phone Number [facility] [address] [facility]. [address] * (ABNORMAL) POC Glucose Monitoring Device (10/26/2024 9:16 PM EDT) POC Glucose Monitoring Device 119(H) 70 - 100 mg/dL 10/26/2024 9:18 PM EDT [facility] Blood 10/26/2024 9:16 PM EDT 10/26/2024 9:18 PM EDT us Harvey Domínguez III, MD POINT OF CARE TEST ORDERABLES Final Result Performing Organization Address [facility] Co de Phone Number [facility] [address] [facility]. [address] * (ABNORMAL) POC Glucose Monitoring Device (10/26/2024 8:05 PM EDT) POC Glucose Monitoring Device 113(H) 70 - 100 mg/dL 10/26/2024 8:06 PM EDT [facility] Blood 10/26/2024 8:05 PM EDT 10/26/2024 8:06 PM EDT us Harvey Domínguez III, MD POINT OF CARE TEST ORDERABLES Final Result [facility] [address] * (ABNORMAL) POC Glucose Monitoring Device (10/26/2024 7:02 PM EDT) POC Glucose Monitoring Device 111(H) 70 - 100 mg/dL 10/26/2024 7:03 PM EDT [facility] Blood 10/26/2024 7:02 PM EDT 10/26/2024 7:03 PM EDT us Harvey Domínguez III, MD POINT OF CARE TEST ORDERABLES Final Result Performing Organization Address City/[facility]/ZIP Co de Phone Number [facility] [address] [facility]. [address] * Transfuse Cryoprecipitate Transfusion Rate: Per dept routine (10/26/2024 6:39 PM EDT) us John Pina MD NURSING TREATMENT ORDERABLES - BLOOD ADMIN Final Result Performing Organization Address City/[facility]/ZIP Co de Phone Number EXTERNAL * Transfuse Cryoprecipitate Transfusion Rate: Per dept routine, 1 Units (10/26/2024 6:39 PM EDT) us John Pina MD NURSING TREATMENT ORDERABLES - BLOOD ADMIN Final Result Performing Organization Address City/[facility]/ZIP Co de Phone Number EXTERNAL * (ABNORMAL) POC Glucose Monitoring Device (10/26/2024 6:33 PM EDT) POC Glucose Monitoring Device 110(H) 70 - 100 mg/dL 10/26/2024 6:34 PM EDT [facility] Blood 10/26/2024 6:33 PM EDT 10/26/2024 6:34 PM EDT us Harvey Domínguez III, MD POINT OF CARE TEST ORDERABLES Final Result Performing Organization Address City/[facility]/ZIP Co de Phone Number [facility] [address] * Transfuse Cryoprecipitate Transfusion Rate: Per dept routine (10/26/2024 6:22 PM EDT) John Pina MD NURSING TREATMENT ORDERABLES - BLOOD ADMIN Final Result Performing Organization Address [facility] de Phone Number EXTERNAL * Transfuse Cryoprecipitate Transfusion Rate: Per dept routine, 1 Units (10/26/2024 6:22 PM EDT) John Pina MD NURSING TREATMENT ORDERABLES - BLOOD ADMIN Final Result Performing Organization Address [facility] Co de Phone Number EXTERNAL * (ABNORMAL) POC Glucose Monitoring Device (10/26/2024 6:17 PM EDT) POC Glucose Monitoring Device 104(H) 70 - 100 mg/dL 10/26/2024 6:18 PM EDT [facility] Blood 10/26/2024 6:17 PM EDT 10/26/2024 6:18 PM EDT Harvey Domínguez III, MD POINT OF CARE TEST ORDERABLES Final Result Performing Organization Address [facility] de Phone Number [facility] [address] * (ABNORMAL) POC Glucose Monitoring Device (10/26/2024 4:58 PM EDT) POC Glucose Monitoring Device 115(H) 70 - 100 mg/dL 10/26/2024 4:59 PM EDT [facility] Blood 10/26/2024 4:58 PM EDT 10/26/2024 4:58 PM EDT Harvey Domínguez III, MD POINT OF CARE TEST ORDERABLES Final Result Performing Organization Address [facility] Co de Phone Number [facility] [address] * (ABNORMAL) Calcium Free, Serum (10/26/2024 4:42 PM EDT) Free Calcium, Ser 5.67(H) 4.40 - 5.40 mg/dL 10/26/2024 4:55 PM EDT [facility] Comment:Free calcium levels vary inversely with pH by approximately 5% for each 0.1 unit of pH change. Assay results have been normalized to pH = 7.40. Serum 10/26/2024 4:42 PM EDT 10/26/2024 4:47 PM EDT Narrative [facility] - 10/26/2024 4:55 PM EDT This test has been developed and its performance characteristics determined by [facility] which is certified under the Clinical Laboratory Improvement Amendment of 1988 (CLIA-88) to perform high complexity testing. The test has not been cleared or approved by the US Food and Drug Administration (FDA). The FDA has determined that such clearance is not necessary. The test should be used for clinical purposes and is not regarded as investigational. oJhn Pina MD LAB BLOOD ORDERABLES Final Resu lt Performing Organization Address [facility]/ZIP Co de Phone Number [address] * Repeat Crossmatch (Recipient Sample) (10/26/2024 4:42 PM EDT) Repeat Cx - Recipient The request and specimen(s) for this test have been received and transported to the [facility] at [address] [place] [address]. The [facility] will report results directly to the client. 10/26/2024 4:49 PM EDT [facility] Whole Blood 10/26/2024 4:42 PM EDT 10/26/2024 4:49 PM EDT Narrative [facility] - 10/26/2024 4:49 PM EDT To be sent to [facility] for Donor UNOS#[id number] cross match with Blair Gilbert Sveta Judge MD LAB BLOOD ORDERABLES Final Resu lt Performing Organization Address City/[facility]/ZIP Co de Phone Number [address] * (ABNORMAL) Lactic Acid (10/26/2024 4:42 PM EDT) Lactate 0.3(L) 0.5 - 2.2 mmol/L 10/26/2024 5:19 PM EDT [facility] Plasma 10/26/2024 4:42 PM EDT 10/26/2024 4:47 PM EDT Kemar Sahni MD LAB BLOOD ORDERABLES Final Result Performing Organization Address City/[facility]/ZIP Co de Phone Number [facility] [address] [place] [address]. [address] * Magnesium (10/26/2024 4:42 PM EDT) Magnesium 2.0 1.5 - 2.5 mg/dL 10/26/2024 5:24 PM EDT [facility] Plasma 10/26/2024 4:42 PM EDT 10/26/2024 4:47 PM EDT Kemar Sahni MD LAB BLOOD ORDERABLES Final Result Performing Organization Address [facility] Co de Phone Number [facility] [address] [place] [address]. [address] * (ABNORMAL) Hepatic Function Panel (10/26/2024 4:42 PM EDT) Total Bilirubin 2.3(H) 0.0 - 1.5 mg/dL 10/26/2024 5:24 PM EDT [facility] Bilirubin, Direct 1.85(H) 0.00 - 0.40 mg/dL 10/26/2024 5:24 PM EDT [facility] AST 374(H) 13 - 39 U/L 10/26/2024 5:24 PM EDT [facility] ALT 458(H) 7 - 52 U/L 10/26/2024 5:24 PM EDT [facility] Alkaline Phosphatase 39 36 - 125 U/L 10/26/2024 5:24 PM EDT [facility] Total Protein 3.8(L) 6.4 - 8.9 g/dL 10/26/2024 5:24 PM EDT [facility] Albumin 3.0(L) 3.5 - 5.7 g/dL 10/26/2024 5:24 PM EDT [facility] Bilirubin, Indirect 0.45 0.00 - 1.10 mg/dL 10/26/2024 5:24 PM EDT [facility] Plasma 10/26/2024 4:42 PM EDT 10/26/2024 4:47 PM EDT Kemar Sahni MD LAB BLOOD ORDERABLES Final Result Performing Organization Address City/[facility] Co de Phone Number [facility] [address] * (ABNORMAL) Protime-INR (10/26/2024 4:42 PM EDT) Protime 20.3(H) 12.1 - 15.1 seconds 10/26/2024 5:12 PM EDT [facility] INR 1.7(H) 0.9 - 1.1 10/26/2024 5:12 PM EDT [facility] Comment: RECOMMENDED THERAPEUTIC RANGES USING INR : Stable oral anticoagulant therapy: 2.0 - 3.0 Mechanical prosthetic heart valve: 2.5 - 3.5 Recurrent acute myocardial infarction: 2.5 - 3.5 Plasma 10/26/2024 4:42 PM EDT 10/26/2024 4:47 PM EDT Kemar Sahni MD LAB BLOOD ORDERABLES Final Result [facility] [address] * (ABNORMAL) CBC (10/26/2024 4:42 PM EDT) WBC 10.0 3.8 - 10.8 10E3/uL 10/26/2024 5:00 PM EDT [facility] RBC 3.44(L) 4.20 - 5.80 10E6/uL 10/26/2024 5:00 PM EDT [facility] Hemoglobin 10.5(L) 13.2 - 17.1 g/dL 10/26/2024 5:00 PM EDT [facility] Hematocrit 30.2(L) 38.5 - 50.0 % 10/26/2024 5:00 PM EDT [facility] MCV 87.7 80.0 - 100.0 fL 10/26/2024 5:00 PM EDT [facility] MCH 30.6 27.0 - 33.0 pg 10/26/2024 5:00 PM EDT [facility] MCHC 34.8 32.0 - 36.0 g/dL 10/26/2024 5:00 PM EDT [facility] RDW 20.1(H) 11.0 - 15.0 % 10/26/2024 5:00 PM EDT [facility] Platelets 48(L) 140 - 400 10E3/uL 10/26/2024 5:00 PM EDT [facility] Comment:Specimen checked for clots. None detected. MPV 7.9 7.5 - 11.5 fL 10/26/2024 5:00 PM EDT [facility] Whole Blood 10/26/2024 4:42 PM EDT 10/26/2024 4:47 PM EDT us Kemar Sahni MD LAB BLOOD ORDERABLES Final Result [facility] [address] [id number] * (ABNORMAL) Renal Function Panel w/EGFR (10/26/2024 4:42 PM EDT) Sodium 142 133 - 146 mmol/L 10/26/2024 5:24 PM EDT [facility] Potassium 3.3(L) 3.5 - 5.3 mmol/L 10/26/2024 5:24 PM EDT [facility] Chloride 109 98 - 110 mmol/L 10/26/2024 5:24 PM EDT [facility] CO2 23 21 - 33 mmol/L 10/26/2024 5:24 PM EDT [facility] Anion Gap 10 3 - 16 mmol/L 10/26/2024 5:24 PM EDT [facility] BUN 63(H) 7 - 25 mg/dL 10/26/2024 5:24 PM EDT [facility] Creatinine 2.85(H) 0.60 - 1.30 mg/dL 10/26/2024 5:24 PM EDT [facility] Glucose 127(H) 70 - 100 mg/dL 10/26/2024 5:24 PM EDT [facility] Calcium 8.9 8.6 - 10.3 mg/dL 10/26/2024 5:24 PM EDT [facility] Phosphorus 4.4 2.1 - 4.7 mg/dL 10/26/2024 5:24 PM EDT [facility] Albumin 3.0(L) 3.5 - 5.7 g/dL 10/26/2024 5:24 PM EDT [facility] Osmolality, Calculated 314(H) 278 - 305 mOsm/kg 10/26/2024 5:24 PM EDT [facility] EGFR 28 10/26/2024 5:24 PM EDT [facility] Comment:As of [...] Sahni MD LAB BLOOD ORDERABLES Final Result [facility] [address] * (ABNORMAL) POC Glucose Monitoring Device (10/26/2024 3:54 PM EDT) POC Glucose Monitoring Device 126(H) 70 - 100 mg/dL 10/26/2024 3:55 PM EDT [facility] Blood 10/26/2024 3:54 PM EDT 10/26/2024 3:55 PM EDT Harvey Domínguez III, MD POINT OF CARE TEST ORDERABLES Final Result [facility] [address] * (ABNORMAL) POC Glucose Monitoring Device (10/26/2024 3:06 PM EDT) POC Glucose Monitoring Device 144(H) 70 - 100 mg/dL 10/26/2024 3:14 PM EDT [facility] Blood 10/26/2024 3:06 PM EDT 10/26/2024 3:13 PM EDT Harvey Domínguez III, MD POINT OF CARE TEST ORDERABLES Final Result [facility] [address] [facility]. [address] * (ABNORMAL) TEG-Bypass/ECMO/Liver HN (Factor function, Platelet/Fibrin Clot Strength w/Clot Breakdown, Heparinase In All Channels) (10/26/2024 3:03 PM EDT) Citrated Kaolin Reaction Time (TEGECMOLIVER) 8.2 4.6 - 9.1 minutes 10/26/2024 4:43 PM EDT [facility] Citrated Kaolin W/Heparinase Reaction Time (TEGECMOLIVER) 8.2 4.3 - 8.3 minutes 10/26/2024 4:43 PM EDT [facility] Citrated Kaolin Maximum Amplitude (TEGECMOLIVER) 41.7(L) 52.0 - 69.0 mm 10/26/2024 4:43 PM EDT [facility] Citrated Functional Fibrinogen W/Heparinase Maximum Amplitude(TEGEC MOLIVER) 11.4(L) 15.0 - 34.0 mm 10/26/2024 4:43 PM EDT [facility] Citrated Rapid Teg W/Heparinase Maximum Amplitude (TEGECMOLIVER) 38.6(L) 53.0 - 69.0 mm 10/26/2024 4:43 PM EDT [facility] Citrated Kaolin w/Heparinase Percent Lysis (TEGECMOLIVER) 0.0 0.0 - 3.2 % 10/26/2024 4:43 PM EDT [facility] Whole Blood (Citrate) 10/26/2024 3:03 PM EDT 10/26/2024 3:10 PM EDT Jani Mooney MD LAB BLOOD ORDERABLES Final Resul t Performing Organization Address City/[facility] Co de Phone Number [facility] [address] * ECG 12 lead (MUSE) (10/26/2024 2:19 PM EDT) 10/26/2024 2:19 PM EDT Narrative MUSE - 10/27/2024 10:09 AM EDT Ventricular Rate: 105 BPM Atrial Rate: 105 BPM P-R Interval: 128 ms QRS Duration: 94 ms QT: 474 ms QTc: 626 ms R Levant: -37 degrees T Levant: 35 degrees Diagnosis Line: Critical Test Result: Long QTc ^ SINUS TACHYCARDIA ^ LEFT AXIS DEVIATION, LEFT ANTERIOR HEMIBLOCK ^ PROLONGED QT ^ ABNORMAL ECG ^ ^ Confirmed by MD HA, [facility] ([id number]) on 10/27/2024 10:09:25 AM Quinten Best MD ECG ORDERABLES Final Result Performing Organization Address City/[facility] Co de Phone Number MUSE * (ABNORMAL) POC Glucose Monitoring Device (10/26/2024 2:00 PM EDT) POC Glucose Monitoring Device 183(H) 70 - 100 mg/dL 10/26/2024 2:01 PM EDT [facility] Blood 10/26/2024 2:00 PM EDT 10/26/2024 2:01 PM EDT us Harvey Domínguez III, MD POINT OF CARE TEST ORDERABLES Final Result Performing Organization Address [facility] Co de Phone Number [facility] [address] * (ABNORMAL) POC Glucose Monitoring Device (10/26/2024 1:05 PM EDT) POC Glucose Monitoring Device 212(H) 70 - 100 mg/dL 10/26/2024 1:06 PM EDT [facility] Blood 10/26/2024 1:05 PM EDT 10/26/2024 1:06 PM EDT Harvey Domínguez III, MD POINT OF CARE TEST ORDERABLES Final Result Performing Organization Address [facility] Co de Phone Number [facility] [address] * Transfuse Cryoprecipitate Has consent been obtained? Yes; Transfusion Rate: Per dept routine (10/26/2024 12:25 PM EDT) us Shay Sifuentes MD NURSING TREATMENT ORDERABLES - BLOOD ADMIN Final Result Performing Organization Address City/[facility] Co de Phone Number EXTERNAL * Transfuse Cryoprecipitate Has consent been obtained? Yes; Transfusion Rate: Per dept routine, 1 Units (10/26/2024 12:25 PM EDT) us Shay Sifuentes MD NURSING TREATMENT ORDERABLES - BLOOD ADMIN Final Result Performing Organization Address City/[facility] Co de Phone Number EXTERNAL * (ABNORMAL) POC Glucose Monitoring Device (10/26/2024 12:06 PM EDT) POC Glucose Monitoring Device 226(H) 70 - 100 mg/dL 10/26/2024 12:07 PM EDT [facility] Blood 10/26/2024 12:0 6 PM EDT 10/26/2024 12:07 PM EDT Harvey Domínguez III, MD POINT OF CARE TEST ORDERABLES Final Result Performing Organization Address [facility] Co de Phone Number [facility] [address] [facility]. [address] * Transfuse Cryoprecipitate Transfusion Rate: Per dept routine (10/26/2024 12:01 PM EDT) John Pina MD NURSING TREATMENT ORDERABLES - BLOOD ADMIN Final Result Performing Organization Address City/[facility] Co de Phone Number EXTERNAL * Transfuse Cryoprecipitate Transfusion Rate: Per dept routine, 1 Units (10/26/2024 12:01 PM EDT) John Pina MD NURSING TREATMENT ORDERABLES - BLOOD ADMIN Final Result Performing Organization Address City/[facility] Co de Phone Number EXTERNAL * Lactic Acid (10/26/2024 10:48 AM EDT) Lactate 1.2 0.5 - 2.2 mmol/L 10/26/2024 11:27 AM EDT [facility] Plasma 10/26/2024 10:4 8 AM EDT 10/26/2024 10:53 AM EDT Kemar Sahni MD LAB BLOOD ORDERABLES Final Result Performing Organization Address City/[facility] Co de Phone Number [facility] [address] [facility]. [address] * Magnesium (10/26/2024 10:48 AM EDT) Magnesium 2.0 1.5 - 2.5 mg/dL 10/26/2024 11:26 AM EDT [facility] Plasma 10/26/2024 10:4 8 AM EDT 10/26/2024 10:53 AM EDT Kemar Sahni MD LAB BLOOD ORDERABLES Final Result [facility] [address] [place] [address], [facility] * (ABNORMAL) Hepatic Function Panel (10/26/2024 10:48 AM EDT) Total Bilirubin 5.9(H) 0.0 - 1.5 mg/dL 10/26/2024 11:26 AM EDT [facility] Bilirubin, Direct 4.74(H) 0.00 - 0.40 mg/dL 10/26/2024 11:26 AM EDT [facility] AST 872(H) 13 - 39 U/L 10/26/2024 11:26 AM EDT [facility] ALT 736(H) 7 - 52 U/L 10/26/2024 11:26 AM EDT [facility] Alkaline Phosphatase 56 36 - 125 U/L 10/26/2024 11:26 AM EDT [facility] Total Protein 3.5(L) 6.4 - 8.9 g/dL 10/26/2024 11:26 AM EDT [facility] Albumin 2.5(L) 3.5 - 5.7 g/dL 10/26/2024 11:26 AM EDT [facility] Bilirubin, Indirect 1.16(H) 0.00 - 1.10 mg/dL 10/26/2024 11:26 AM EDT [facility] Plasma 10/26/2024 10:4 8 AM EDT 10/26/2024 10:53 AM EDT Kemar Sahni MD LAB BLOOD ORDERABLES Final Result [facility] [address] [place] [address], [facility] * (ABNORMAL) Protime-INR (10/26/2024 10:48 AM EDT) Protime 23.0(H) 12.1 - 15.1 seconds 10/26/2024 11:26 AM EDT [facility] INR 2.0(H) 0.9 - 1.1 10/26/2024 11:26 AM EDT [facility] Comment: RECOMMENDED THERAPEUTIC RANGES USING INR : Stable oral anticoagulant therapy: 2.0 - 3.0 Mechanical prosthetic heart valve: 2.5 - 3.5 Recurrent acute myocardial infarction: 2.5 - 3.5 Plasma 10/26/2024 10:4 8 AM EDT 10/26/2024 10:53 AM EDT Kemar Sahni MD LAB BLOOD ORDERABLES Final Result [facility] [address] [place] [address], [facility] * (ABNORMAL) CBC (10/26/2024 10:48 AM EDT) WBC 17.3(H) 3.8 - 10.8 10E3/uL 10/26/2024 11:14 AM EDT [facility] RBC 4.22 4.20 - 5.80 10E6/uL 10/26/2024 11:14 AM EDT [facility] Hemoglobin 12.8(L) 13.2 - 17.1 g/dL 10/26/2024 11:14 AM EDT [facility] Hematocrit 37.2(L) 38.5 - 50.0 % 10/26/2024 11:14 AM EDT [facility] MCV 88.3 80.0 - 100.0 fL 10/26/2024 11:14 AM EDT [facility] MCH 30.4 27.0 - 33.0 pg 10/26/2024 11:14 AM EDT [facility] MCHC 34.4 32.0 - 36.0 g/dL 10/26/2024 11:14 AM EDT [facility] RDW 20.8(H) 11.0 - 15.0 % 10/26/2024 11:14 AM EDT [facility] Platelets 109(L) 140 - 400 10E3/uL 10/26/2024 11:14 AM EDT [facility] MPV 7.5 7.5 - 11.5 fL 10/26/2024 11:14 AM EDT [facility] Whole Blood 10/26/2024 10:4 8 AM EDT 10/26/2024 10:53 AM EDT Kemar Sahni MD LAB BLOOD ORDERABLES Final Result [facility] [address] [place] [address], [facility] * (ABNORMAL) Blood gas, arterial (10/26/2024 10:48 AM EDT) O2 Sat, Arterial 97 10/26/2024 10:54 AM EDT [facility] FIO2 35% 10/26/2024 10:54 AM EDT [facility] pH, Arterial 7.37 7.35 - 7.45 10/26/2024 10:54 AM EDT [facility] pCO2, Arterial 36 35 - 45 mm Hg 10/26/2024 10:54 AM EDT [facility] pO2, Arterial 91 80 - 100 mm Hg 10/26/2024 10:54 AM EDT [facility] HCO3, Arterial 22 22 - 26 mmol/L 10/26/2024 10:54 AM EDT [facility] CO2 Content,Arteri al 22(L) 23 - 27 mmol/L 10/26/2024 10:54 AM EDT [facility] Base Excess, Arterial -3.9(L) -2.0 - 3.0 mmol/L 10/26/2024 10:54 AM EDT [facility] %HBO2, Arterial 94.8(L) 95.0 - 98.0 % 10/26/2024 10:54 AM EDT [facility] Carboxyhemoglo bin, Arterial 1.9 % 10/26/2024 10:54 AM EDT [facility] Comment: CARBOXYHEMOGLOBIN (CO) REFERENCE RANGES: Non-Smokers: <2 % Smokers: <8 % TOXIC: >20 % Methemoglobin, Arterial 0.7 0.0 - 1.5 % 10/26/2024 10:54 AM EDT [facility] Reduced hemoglobin, Arterial 2.5 0.0 - 5.0 % 10/26/2024 10:54 AM EDT [facility] Blood, Arterial 10/26/2024 1 0:48 AM EDT 10/26/2024 10:52 AM EDT us Shay Sifuentes MD LAB BLOOD ORDERABLES Final Resu lt [facility] [address] [place] [address], [facility] * (ABNORMAL) Renal Function Panel w/EGFR (10/26/2024 10:48 AM EDT) Sodium 139 133 - 146 mmol/L 10/26/2024 11:26 AM EDT [facility] Potassium 2.9(LL) 3.5 - 5.3 mmol/L 10/26/2024 11:26 AM EDT [facility] Comment:K CRITICAL VALUE WAS PREVIOUSLY CALLED Chloride 107 98 - 110 mmol/L 10/26/2024 11:26 AM EDT [facility] CO2 22 21 - 33 mmol/L 10/26/2024 11:26 AM EDT [facility] Anion Gap 10 3 - 16 mmol/L 10/26/2024 11:26 AM EDT [facility] BUN 61(H) 7 - 25 mg/dL 10/26/2024 11:26 AM EDT [facility] Creatinine 2.78(H) 0.60 - 1.30 mg/dL 10/26/2024 11:26 AM EDT [facility] Glucose 253(H) 70 - 100 mg/dL 10/26/2024 11:26 AM EDT [facility] Calcium 8.8 8.6 - 10.3 mg/dL 10/26/2024 11:26 AM EDT [facility] Phosphorus 4.1 2.1 - 4.7 mg/dL 10/26/2024 11:26 AM EDT [facility] Albumin 2.5(L) 3.5 - 5.7 g/dL 10/26/2024 11:26 AM EDT [facility] Osmolality, Calculated 314(H) 278 - 305 mOsm/kg 10/26/2024 11:26 AM EDT [facility] EGFR 28 10/26/2024 11:26 AM EDT [facility] Comment:As of [...] BLOOD ORDERABLES Final Result Performing Organization Address [facility]/ZIP Co de Phone Number [facility] [address] [facility]. [address] * (ABNORMAL) POC Glucose Monitoring Device (10/26/2024 10:47 AM EDT) POC Glucose Monitoring Device 234(H) 70 - 100 mg/dL 10/26/2024 10:48 AM EDT [facility] Blood 10/26/2024 10:4 7 AM EDT 10/26/2024 10:48 AM EDT Harvey Domínguez III, MD POINT OF CARE TEST ORDERABLES Final Result Performing Organization Address [facility]/ZIP Co de Phone Number [facility] [address] [facility]. [address] * CARISA Rhythm Strip - Scan (10/26/2024 10:45 AM EDT) Scanning Uchhim SCAN DOCS - NO RESULTS Final Res ult * (ABNORMAL) POC Glucose Monitoring Device (10/26/2024 10:08 AM EDT) POC Glucose Monitoring Device 235(H) 70 - 100 mg/dL 10/26/2024 10:09 AM EDT [facility] Blood 10/26/2024 10:0 8 AM EDT 10/26/2024 10:09 AM EDT Harvey Domínguez III, MD POINT OF CARE TEST ORDERABLES Final Result Performing Organization Address [facility] Co de Phone Number [facility] [address] * (ABNORMAL) POC Glucose Monitoring Device (10/26/2024 8:57 AM EDT) POC Glucose Monitoring Device 232(H) 70 - 100 mg/dL 10/26/2024 8:59 AM EDT [facility] Blood 10/26/2024 8:57 AM EDT 10/26/2024 8:58 AM EDT Harvey Domínguez III, MD POINT OF CARE TEST ORDERABLES Final Result Performing Organization Address [facility] de Phone Number [facility] [address] * ECG 12 lead (MUSE) (10/26/2024 8:16 AM EDT) 10/26/2024 8:16 AM EDT Narrative MUSE - 10/27/2024 10:09 AM EDT Ventricular Rate: 112 BPM QRS Duration: 96 ms QT: 452 ms QTc: 616 ms R Levant: -41 degrees T Levant: 40 degrees Diagnosis Line: Critical Test Result: Long QTc ^ SINUS TACHYCARDIA OCCASIONAL PREMATURE VENTRICULAR COMPLEXES ^ LEFT AXIS DEVIATION, LEFT ANTERIOR HEMIBLOCK ^ PROLONGED QT ^ ABNORMAL ECG ^ ^ Confirmed by MD HA, [facility] ([facility]) on 10/27/2024 10:09:18 AM Shay Sifuentes MD ECG ORDERABLES Final Result Performing Organization Address City/[facility] Co de Phone Number MUSE * X-ray [...] Support devices as above. Report Verified by: oDron Castro MD at 10/26/2024 8:24 AM EDT Sveta Judge MD IMG DIAGNOSTIC IMAGING ORDERABL ES Final Result * (ABNORMAL) POC Glucose Monitoring Device (10/26/2024 7:59 AM EDT) POC Glucose Monitoring Device 229(H) 70 - 100 mg/dL 10/26/2024 8:01 AM EDT [facility] Blood 10/26/2024 7:59 AM EDT 10/26/2024 8:00 AM EDT us Harvey Domínguez III, MD POINT OF CARE TEST ORDERABLES Final Result Performing Organization Address [facility]/ZIP Co de Phone Number [facility] [address] [id number], [facility] * (ABNORMAL) TEG-Bypass/ECMO/Liver HN (Factor function, Platelet/Fibrin Clot Strength w/Clot Breakdown, Heparinase In All Channels) (10/26/2024 7:59 AM EDT) [facility] Citrated Kaolin Reaction Time (TEGECMOLIVER) 8.2 4.6 - 9.1 minutes 10/26/2024 10:36 AM EDT [facility] Citrated Kaolin W/Heparinase Reaction Time (TEGECMOLIVER) 8.1 4.3 - 8.3 minutes 10/26/2024 10:36 AM EDT [facility] Citrated Kaolin Maximum Amplitude (TEGECMOLIVER) 46.8(L) 52.0 - 69.0 mm 10/26/2024 10:36 AM EDT [facility] Citrated Functional Fibrinogen W/Heparinase Maximum Amplitude(TEGEC MOLIVER) 10.5(L) 15.0 - 34.0 mm 10/26/2024 10:36 AM EDT [facility] Citrated Rapid Teg W/Heparinase Maximum Amplitude (TEGECMOLIVER) 45.5(L) 53.0 - 69.0 mm 10/26/2024 10:36 AM EDT [facility] Citrated Kaolin w/Heparinase Percent Lysis (TEGECMOLIVER) 0.0 0.0 - 3.2 % 10/26/2024 10:36 AM EDT [facility] Whole Blood (Citrate) 10/26/2024 7:59 AM EDT 10/26/2024 8:05 AM EDT Shay Sifuentes MD LAB BLOOD ORDERABLES Final Resu lt [facility] [address] * (ABNORMAL) POC Glucose Monitoring Device (10/26/2024 6:12 AM EDT) POC Glucose Monitoring Device 196(H) 70 - 100 mg/dL 10/26/2024 6:13 AM EDT [facility] Blood 10/26/2024 6:12 AM EDT 10/26/2024 6:13 AM EDT Harvey Domínguez III, MD POINT OF CARE TEST ORDERABLES Final Result Performing Organization Address [facility] Co de Phone Number [facility] [address] [facility]. [address] * Lactic Acid (10/26/2024 6:10 AM EDT) Lactate 1.2 0.5 - 2.2 mmol/L 10/26/2024 6:39 AM EDT [facility] Plasma 10/26/2024 6:10 AM EDT 10/26/2024 6:19 AM EDT Sveta Judge MD LAB BLOOD ORDERABLES Final Resu lt Performing Organization Address [facility] Co de Phone Number [facility] [address] [facility]. [address] * (ABNORMAL) Fibrinogen (10/26/2024 6:10 AM EDT) Fibrinogen 160(L) 218 - 406 mg/dL 10/26/2024 6:41 AM EDT [facility] Plasma 10/26/2024 6:10 AM EDT 10/26/2024 6:26 AM EDT us Sveta Judge MD LAB BLOOD ORDERABLES Final Resu lt Performing Organization Address [facility]/ZIP Co de Phone Number [facility] [address] [facility]. [address] * (ABNORMAL) Protime-INR (10/26/2024 6:10 AM EDT) Protime 25.0(H) 12.1 - 15.1 seconds 10/26/2024 6:41 AM EDT [facility] INR 2.2(H) 0.9 - 1.1 10/26/2024 6:41 AM EDT [facility] Comment: RECOMMENDED THERAPEUTIC RANGES USING INR : Stable oral anticoagulant therapy: 2.0 - 3.0 Mechanical prosthetic heart valve: 2.5 - 3.5 Recurrent acute myocardial infarction: 2.5 - 3.5 Plasma 10/26/2024 6:10 AM EDT 10/26/2024 6:26 AM EDT us Sveta Judge MD LAB BLOOD ORDERABLES Final Resu lt [facility] [address] * (ABNORMAL) Blood gas, arterial (10/26/2024 6:10 AM EDT) O2 Sat, Arterial 98 10/26/2024 6:23 AM EDT [facility] FIO2 60 10/26/2024 6:23 AM EDT [facility] pH, Arterial 7.27(L) 7.35 - 7.45 10/26/2024 6:23 AM EDT [facility] pCO2, Arterial 47(H) 35 - 45 mm Hg 10/26/2024 6:23 AM EDT [facility] pO2, Arterial 127(H) 80 - 100 mm Hg 10/26/2024 6:23 AM EDT [facility] HCO3, Arterial 21(L) 22 - 26 mmol/L 10/26/2024 6:23 AM EDT [facility] CO2 Content,Arteri al 23 23 - 27 mmol/L 10/26/2024 6:23 AM EDT [facility] Base Excess, Arterial -5.4(L) -2.0 - 3.0 mmol/L 10/26/2024 6:23 AM EDT [facility] %HBO2, Arterial 94.6(L) 95.0 - 98.0 % 10/26/2024 6:23 AM EDT [facility] Carboxyhemoglo bin, Arterial 2.0 % 10/26/2024 6:23 AM EDT [facility] Comment: CARBOXYHEMOGLOBIN (CO) REFERENCE RANGES: Non-Smokers: <2 % Smokers: <8 % TOXIC: >20 % Methemoglobin, Arterial 1.6(H) 0.0 - 1.5 % 10/26/2024 6:23 AM EDT [facility] Reduced hemoglobin, Arterial 1.8 0.0 - 5.0 % 10/26/2024 6:23 AM EDT [facility] Blood, Arterial 10/26/2024 6 :10 AM EDT 10/26/2024 6:20 AM EDT Sveta Judge MD LAB BLOOD ORDERABLES Final Resu lt Performing Organization Address [facility] Co de Phone Number [facility] [address] [facility]. [address] * Magnesium (10/26/2024 6:10 AM EDT) Magnesium 1.5 1.5 - 2.5 mg/dL 10/26/2024 7:09 AM EDT [facility] Plasma 10/26/2024 6:10 AM EDT 10/26/2024 6:23 AM EDT Sveta Judge MD LAB BLOOD ORDERABLES Final Resu lt Performing Organization Address City/[facility] Co de Phone Number [facility] [address] [facility]. [address] * (ABNORMAL) Hepatic Function Panel (10/26/2024 6:10 AM EDT) Total Bilirubin 6.2(H) 0.0 - 1.5 mg/dL 10/26/2024 7:11 AM EDT [facility] Bilirubin, Direct 5.26(H) 0.00 - 0.40 mg/dL 10/26/2024 7:11 AM EDT [facility] AST 1,071(H) 13 - 39 U/L 10/26/2024 7:11 AM EDT [facility] ALT 805(H) 7 - 52 U/L 10/26/2024 7:11 AM EDT [facility] Alkaline Phosphatase 55 36 - 125 U/L 10/26/2024 7:11 AM EDT [facility] Total Protein <3.0(L) 6.4 - 8.9 g/dL 10/26/2024 7:11 AM EDT [facility] Albumin 1.9(L) 3.5 - 5.7 g/dL 10/26/2024 7:11 AM EDT [facility] Bilirubin, Indirect 0.94 0.00 - 1.10 mg/dL 10/26/2024 7:11 AM EDT [facility] Plasma 10/26/2024 6:10 AM EDT 10/26/2024 6:23 AM EDT us Sveta Judge MD LAB BLOOD ORDERABLES Final Resu lt [facility] [address] * (ABNORMAL) Renal Function Panel w/EGFR (10/26/2024 6:10 AM EDT) Sodium 141 133 - 146 mmol/L 10/26/2024 7:09 AM EDT [facility] Potassium 2.8(LL) 3.5 - 5.3 mmol/L 10/26/2024 7:09 AM EDT [facility] Comment:Critical value previ ously called. Chloride 106 98 - 110 mmol/L 10/26/2024 7:09 AM EDT [facility] CO2 25 21 - 33 mmol/L 10/26/2024 7:09 AM EDT [facility] Anion Gap 10 3 - 16 mmol/L 10/26/2024 7:09 AM EDT [facility] BUN 57(H) 7 - 25 mg/dL 10/26/2024 7:09 AM EDT [facility] Creatinine 2.70(H) 0.60 - 1.30 mg/dL 10/26/2024 7:09 AM EDT [facility] Glucose 210(H) 70 - 100 mg/dL 10/26/2024 7:09 AM EDT [facility] Calcium 8.7 8.6 - 10.3 mg/dL 10/26/2024 7:09 AM EDT [facility] Phosphorus 5.4(H) 2.1 - 4.7 mg/dL 10/26/2024 7:09 AM EDT [facility] Albumin 1.9(L) 3.5 - 5.7 g/dL 10/26/2024 7:11 AM EDT [facility] Osmolality, Calculated 314(H) 278 - 305 mOsm/kg 10/26/2024 7:09 AM EDT [facility] EGFR 29 10/26/2024 7:09 AM EDT [facility] Comment:As of [...] ORDERABLES Final Resu lt [facility] [address] [place] [address], [facility] * (ABNORMAL) CBC (10/26/2024 6:10 AM EDT) WBC 14.8(H) 3.8 - 10.8 10E3/uL 10/26/2024 6:46 AM EDT [facility] RBC 4.04(L) 4.20 - 5.80 10E6/uL 10/26/2024 6:46 AM EDT [facility] Hemoglobin 12.7(L) 13.2 - 17.1 g/dL 10/26/2024 6:46 AM EDT [facility] Hematocrit 35.9(L) 38.5 - 50.0 % 10/26/2024 6:46 AM EDT [facility] MCV 89.0 80.0 - 100.0 fL 10/26/2024 6:46 AM EDT [facility] MCH 31.3 27.0 - 33.0 pg 10/26/2024 6:46 AM EDT [facility] MCHC 35.2 32.0 - 36.0 g/dL 10/26/2024 6:46 AM EDT [facility] RDW 19.7(H) 11.0 - 15.0 % 10/26/2024 6:46 AM EDT [facility] Platelets 107(L) 140 - 400 10E3/uL 10/26/2024 6:46 AM EDT [facility] MPV 7.4(L) 7.5 - 11.5 fL 10/26/2024 6:46 AM EDT [facility] Whole Blood 10/26/2024 6:10 AM EDT 10/26/2024 6:26 AM EDT us Sveta Judge MD LAB BLOOD ORDERABLES Final Resu lt [facility] [address] [id number] * (ABNORMAL) POC INR (10/26/2024 5:16 AM EDT) Prothrombin Time INR, POC 2.4(H) 0.8 - 1.4 10/27/2024 6:51 AM EDT [facility] Comment: Test results may vary [...] POINT OF CARE TEST ORDERABLES Final Result [facility] [address] * POC Sample Type (10/26/2024 5:14 AM EDT) POC Sample Type Arterial 10/26/2024 5:31 AM EDT [facility] Blood, Arterial 10/26/2024 5 :14 AM EDT 10/26/2024 5:31 AM EDT us Harvey Domínguez III, MD POINT OF CARE TEST ORDERABLES Final Result Performing Organization Address City/[facility]/ZIP Co de Phone Number [facility] [address] [place] [facility]. [address] * POC Anion Gap (10/26/2024 5:14 AM EDT) POC Anion Gap, Arterial 12 3 - 16 mmol/L 10/26/2024 5:31 AM EDT [facility] Blood, Arterial 10/26/2024 5 :14 AM EDT 10/26/2024 5:31 AM EDT us Harvey Domínguez III, MD POINT OF CARE TEST ORDERABLES Final Result [facility] [address] * POC Chloride (10/26/2024 5:14 AM EDT) POC Chloride 104 98 - 110 mmol/L 10/26/2024 5:31 AM EDT [facility] Blood, Arterial 10/26/2024 5 :14 AM EDT 10/26/2024 5:31 AM EDT Harvey Domínguez III, MD POINT OF CARE TEST ORDERABLES Final Result Performing Organization Address City/[facility]/ZIP Co de Phone Number [facility] [address] * (ABNORMAL) POC Hemoglobin (10/26/2024 5:14 AM EDT) POC Hemoglobin 9.5(L) 14.0 - 18.0 g/dL 10/26/2024 5:31 AM EDT [facility] Blood, Arterial 10/26/2024 5 :14 AM EDT 10/26/2024 5:31 AM EDT Harvey Domínguez III, MD POINT OF CARE TEST ORDERABLES Final Result Performing Organization Address [facility] Co de Phone Number [facility] [address] [facility]. [address] * (ABNORMAL) POC hematocrit (10/26/2024 5:14 AM EDT) POC Hematocrit 28.0(L) 40 - 52 % 10/26/2024 5:31 AM EDT [facility] Blood, Arterial 10/26/2024 5 :14 AM EDT 10/26/2024 5:31 AM EDT Harvey Domínguez III, MD POINT OF CARE TEST ORDERABLES Final Result Performing Organization Address City/[facility] Co de Phone Number [facility] [address] * POC Lactate (10/26/2024 5:14 AM EDT) POC Lactate 1.76 0.50 - 2.20 mmol/L 10/26/2024 5:31 AM EDT [facility] Blood, Arterial 10/26/2024 5 :14 AM EDT 10/26/2024 5:31 AM EDT Harvey Domínguez III, MD POINT OF CARE TEST ORDERABLES Final Result Performing Organization Address City/[facility] Co de Phone Number [facility] [address] [address] * (ABNORMAL) POC Glucose (10/26/2024 5:14 AM EDT) POC Glucose, Arterial 183(H) 70 - 100 mg/dL 10/26/2024 5:31 AM EDT [facility] Blood, Arterial 10/26/2024 5 :14 AM EDT 10/26/2024 5:31 AM EDT Harvey Domínguez III, MD POINT OF CARE TEST ORDERABLES Final Result Performing Organization Address [facility] Co de Phone Number [facility] [address] [place] [address]. [address] * (ABNORMAL) POC Ionized Calcium (10/26/2024 5:14 AM EDT) POC Ionized Calcium 5.50(H) 4.50 - 5.30 mg/dL 10/26/2024 5:31 AM EDT [facility] Blood, Arterial 10/26/2024 5 :14 AM EDT 10/26/2024 5:31 AM EDT Harvey Domínguez III, MD POINT OF CARE TEST ORDERABLES Final Result Performing Organization Address City/[facility] Co de Phone Number [facility] [address] Center[facility] [facility]. [address] * (ABNORMAL) POC Potassium (10/26/2024 5:14 AM EDT) POC Potassium 2.8(LL) 3.5 - 5.3 mmol/L 10/26/2024 5:31 AM EDT [facility] Blood, Arterial 10/26/2024 5 :14 AM EDT 10/26/2024 5:31 AM EDT us Harvey Domínguez III, MD POINT OF CARE TEST ORDERABLES Final Result Performing Organization Address City/[facility]/ZIP Co de Phone Number [facility] [address] * POC Sodium (10/26/2024 5:14 AM EDT) POC Sodium 138 136 - 146 mmol/L 10/26/2024 5:31 AM EDT [facility] Blood, Arterial 10/26/2024 5 :14 AM EDT 10/26/2024 5:31 AM EDT us Harvey Domínguez III, MD POINT OF CARE TEST ORDERABLES Final Result Performing Organization Address [facility] Co de Phone Number [facility] [address] [place] [address]. [address] * POC TCO2 (10/26/2024 5:14 AM EDT) POC TCO2, Arterial 23 23 - 27 mmol/L 10/26/2024 5:31 AM EDT [facility] Blood, Arterial 10/26/2024 5 :14 AM EDT 10/26/2024 5:31 AM EDT us Harvey Domínguez III, MD POINT OF CARE TEST ORDERABLES Final Result Performing Organization Address City/[facility]/ZIP Co de Phone Number [address] * (ABNORMAL) POC O2 SAT (10/26/2024 5:14 AM EDT) POC O2 Saturation, Arterial 99(H) 95 - 98 % 10/26/2024 5:31 AM EDT [facility] Blood, Arterial 10/26/2024 5 :14 AM EDT 10/26/2024 5:31 AM EDT us Harvey Domínguez III, MD POINT OF CARE TEST ORDERABLES Final Result Performing Organization Address City/[facility]/ZIP Co de Phone Number [facility] [address] * (ABNORMAL) POC Base Excess (10/26/2024 5:14 AM EDT) POC Base Excess, Arterial -5(L) -2 - 3 mmol/L 10/26/2024 5:31 AM EDT [facility] Blood, Arterial 10/26/2024 5 :14 AM EDT 10/26/2024 5:31 AM EDT Harvey Domínguez III, MD POINT OF CARE TEST ORDERABLES Final Result Performing Organization Address [facility] Co de Phone Number [facility] [address] * POC HCO3 (10/26/2024 5:14 AM EDT) POC HCO3, Arterial 22 22 - 26 mmol/L 10/26/2024 5:31 AM EDT [facility] Blood, Arterial 10/26/2024 5 :14 AM EDT 10/26/2024 5:31 AM EDT us Harvey Domínguez III, MD POINT OF CARE TEST ORDERABLES Final Result Performing Organization Address City/[facility]/ZIP Co de Phone Number [facility] [address] [facility]. [address] * (ABNORMAL) POC PO2 (10/26/2024 5:14 AM EDT) POC pO2, Arterial 133(H) 80 - 100 mm Hg 10/26/2024 5:31 AM EDT [facility] Blood, Arterial 10/26/2024 5 :14 AM EDT 10/26/2024 5:31 AM EDT us Harvey Domínguez III, MD POINT OF CARE TEST ORDERABLES Final Result [facility] [address] * POC PCO2 (10/26/2024 5:14 AM EDT) POC pCO2, Arterial 45 35 - 45 mm Hg 10/26/2024 5:31 AM EDT [facility] Blood, Arterial 10/26/2024 5 :14 AM EDT 10/26/2024 5:31 AM EDT Harvey Domínguez III, MD POINT OF CARE TEST ORDERABLES Final Result Performing Organization Address [facility] Co de Phone Number [facility] [address] [facility]. [address] * (ABNORMAL) POC pH (10/26/2024 5:14 AM EDT) POC pH, Arterial 7.29(L) 7.35 - 7.45 10/26/2024 5:31 AM EDT [facility] Blood, Arterial 10/26/2024 5 :14 AM EDT 10/26/2024 5:31 AM EDT Harvey Domínguez III, MD POINT OF CARE TEST ORDERABLES Final Result Performing Organization Address [facility] Co de Phone Number [facility] [address] [facility]. [address] * Transfuse Cryoprecipitate (10/26/2024 4:37 AM EDT) Eber Quinones MD NURSING TREATMENT ORDERA BLES - BLOOD ADMIN Final Result * Transfuse Cryoprecipitate (10/26/2024 4:37 AM EDT) us Eber Quinones MD NURSING TREATMENT ORDERA BLES - BLOOD ADMIN Final Result * (ABNORMAL) POC INR (10/26/2024 4:27 AM EDT) Prothrombin Time INR, POC 2.3(H) 0.8 - 1.4 10/27/2024 6:51 AM EDT [facility] Comment: Test results may vary using different testing platforms. Serial result monitoring should be performed using the same methodology. RECOMMENDED THERAPEUTIC RANGES USING INR : Stable oral anticoagulant therapy: 2.0 - 3.0 Mechanical prosthetic heart valve: 2.5 - 3.5 Recurrent acute myocardial infarction: 2.5 - 3.5 Blood 10/26/2024 4:27 AM EDT 10/27/2024 6:51 AM EDT Harvey Domínguez III, MD POINT OF CARE TEST ORDERABLES Final Result [facility] [address] [facility] * POC Sample Type (10/26/2024 4:24 AM EDT) POC Sample Type Arterial 10/26/2024 5:09 AM EDT [facility] Blood, Arterial 10/26/2024 4 :24 AM EDT 10/26/2024 5:09 AM EDT Harvey Domínguez III, MD POINT OF CARE TEST ORDERABLES Final Result Performing Organization Address City/[facility] Co de Phone Number [facility] [address] * POC Anion Gap (10/26/2024 4:24 AM EDT) POC Anion Gap, Arterial 14 3 - 16 mmol/L 10/26/2024 5:09 AM EDT [facility] Blood, Arterial 10/26/2024 4 :24 AM EDT 10/26/2024 5:09 AM EDT Harvey Domínguez III, MD POINT OF CARE TEST ORDERABLES Final Result [facility] [address] * POC Chloride (10/26/2024 4:24 AM EDT) POC Chloride 103 98 - 110 mmol/L 10/26/2024 5:09 AM EDT [facility] Blood, Arterial 10/26/2024 4 :24 AM EDT 10/26/2024 5:09 AM EDT us Harvey Domínguez III, MD POINT OF CARE TEST ORDERABLES Final Result [facility] [address] [facility]. [address] * (ABNORMAL) POC Hemoglobin (10/26/2024 4:24 AM EDT) [facility] POC Hemoglobin 10.3(L) 14.0 - 18.0 g/dL 10/26/2024 5:09 AM EDT [facility] Blood, Arterial 10/26/2024 4 :24 AM EDT 10/26/2024 5:09 AM EDT us Harvey Domínguez III, MD POINT OF CARE TEST ORDERABLES Final Result Performing Organization Address [facility] Co de Phone Number [facility] [address] [place] [address]. [address] * (ABNORMAL) POC hematocrit (10/26/2024 4:24 AM EDT) [facility] POC Hematocrit 30.0(L) 40 - 52 % 10/26/2024 5:09 AM EDT [facility] Blood, Arterial 10/26/2024 4 :24 AM EDT 10/26/2024 5:09 AM EDT us Harvey Domínguez III, MD POINT OF CARE TEST ORDERABLES Final Result Performing Organization Address City/[facility] Co de Phone Number [facility] [address] [facility]. [address] * (ABNORMAL) POC Lactate (10/26/2024 4:24 AM EDT) POC Lactate 2.43(H) 0.50 - 2.20 mmol/L 10/26/2024 5:09 AM EDT [facility] Blood, Arterial 10/26/2024 4 :24 AM EDT 10/26/2024 5:09 AM EDT us Harvey Domínguez III, MD POINT OF CARE TEST ORDERABLES Final Result Performing Organization Address City/[facility] Co de Phone Number [facility] [address] [place] [address]. [address] * (ABNORMAL) POC Glucose (10/26/2024 4:24 AM EDT) Pathologist [facility] POC Glucose, Arterial 185(H) 70 - 100 mg/dL 10/26/2024 5:09 AM EDT [facility] Blood, Arterial 10/26/2024 4 :24 AM EDT 10/26/2024 5:09 AM EDT us Harvey Domínguez III, MD POINT OF CARE TEST ORDERABLES Final Result Performing Organization Address [facility] Co de Phone Number [facility] [address] [place] [address]. [address] * POC Ionized Calcium (10/26/2024 4:24 AM EDT) Pathologist [facility] POC Ionized Calcium 5.20 4.50 - 5.30 mg/dL 10/26/2024 5:09 AM EDT [facility] Blood, Arterial 10/26/2024 4 :24 AM EDT 10/26/2024 5:09 AM EDT us Harvey Domínguez III, MD POINT OF CARE TEST ORDERABLES Final Result Performing Organization Address City/[facility] Co de Phone Number [facility] [address] [place] [address]. [address] * (ABNORMAL) POC Potassium (10/26/2024 4:24 AM EDT) POC Potassium 2.8(LL) 3.5 - 5.3 mmol/L 10/26/2024 5:09 AM EDT [facility] Blood, Arterial 10/26/2024 4 :24 AM EDT 10/26/2024 5:09 AM EDT us Harvey Domínguez III, MD POINT OF CARE TEST ORDERABLES Final Result Performing Organization Address City/[facility]/ZIP Co de Phone Number [facility] [address] [place] [address]. [address] * POC Sodium (10/26/2024 4:24 AM EDT) POC Sodium 139 136 - 146 mmol/L 10/26/2024 5:09 AM EDT [facility] Blood, Arterial 10/26/2024 4 :24 AM EDT 10/26/2024 5:09 AM EDT Harvey Domínguez III, MD POINT OF CARE TEST ORDERABLES Final Result Performing Organization Address [facility] Co de Phone Number [facility] [address] [place] [address]. [address] * POC TCO2 (10/26/2024 4:24 AM EDT) POC TCO2, Arterial 23 23 - 27 mmol/L 10/26/2024 5:09 AM EDT [facility] Blood, Arterial 10/26/2024 4 :24 AM EDT 10/26/2024 5:09 AM EDT us Harvey Domínguez III, MD POINT OF CARE TEST ORDERABLES Final Result Performing Organization Address City/[facility] Co de Phone Number [facility] [address] [place] [address]. [address] * POC O2 SAT (10/26/2024 4:24 AM EDT) POC O2 Saturation, Arterial 96 95 - 98 % 10/26/2024 5:09 AM EDT [facility] Blood, Arterial 10/26/2024 4 :24 AM EDT 10/26/2024 5:09 AM EDT us Harvey Domínguez III, MD POINT OF CARE TEST ORDERABLES Final Result [facility] [address] * (ABNORMAL) POC Base Excess (10/26/2024 4:24 AM EDT) POC Base Excess, Arterial -5(L) -2 - 3 mmol/L 10/26/2024 5:09 AM EDT [facility] Blood, Arterial 10/26/2024 4 :24 AM EDT 10/26/2024 5:09 AM EDT us Harvey Domínguez III, MD POINT OF CARE TEST ORDERABLES Final Result Performing Organization Address [facility]/ZIP Co de Phone Number [facility] [address] [facility]. [address] * POC HCO3 (10/26/2024 4:24 AM EDT) POC HCO3, Arterial 22 22 - 26 mmol/L 10/26/2024 5:09 AM EDT [facility] Blood, Arterial 10/26/2024 4 :24 AM EDT 10/26/2024 5:09 AM EDT us Harvey Domínguez III, MD POINT OF CARE TEST ORDERABLES Final Result [facility] [address] * POC PO2 (10/26/2024 4:24 AM EDT) POC pO2, Arterial 93 80 - 100 mm Hg 10/26/2024 5:09 AM EDT [facility] Blood, Arterial 10/26/2024 4 :24 AM EDT 10/26/2024 5:09 AM EDT Harvey Domínguez III, MD POINT OF CARE TEST ORDERABLES Final Result Performing Organization Address [facility] Co de Phone Number [facility] [address] * POC PCO2 (10/26/2024 4:24 AM EDT) POC pCO2, Arterial 44 35 - 45 mm Hg 10/26/2024 5:09 AM EDT [facility] Blood, Arterial 10/26/2024 4 :24 AM EDT 10/26/2024 5:09 AM EDT Harvey Domínguez III, MD POINT OF CARE TEST ORDERABLES Final Result Performing Organization Address [facility] Co de Phone Number [facility] [address] * (ABNORMAL) POC pH (10/26/2024 4:24 AM EDT) POC pH, Arterial 7.30(L) 7.35 - 7.45 10/26/2024 5:09 AM EDT [facility] Blood, Arterial 10/26/2024 4 :24 AM EDT 10/26/2024 5:09 AM EDT Result [facility] Harvey Domínguez III, MD POINT OF CARE TEST ORDERABLES Final Result Performing Organization Address [facility] Co de Phone Number [facility] [address] * Transfuse Platelets (10/26/2024 4:14 AM EDT) Result [facility] Ben Blake MD NURSING TREATMENT ORDERABLES - BLOOD ADMIN Final Result * Transfuse Fresh Frozen Plasma (10/26/2024 3:47 AM EDT) Ben Blake MD NURSING TREATMENT ORDERABLES - BLOOD ADMIN Final Result * (ABNORMAL) POC INR (10/26/2024 3:34 AM EDT) Prothrombin Time INR, POC 2.8(H) 0.8 - 1.4 10/27/2024 6:51 AM EDT [facility] Comment: Test results may vary using [...] TEST ORDERABLES Final Result Performing Organization Address [facility] Co de Phone Number [facility] [address] [place] [address]. [address] * POC Sample Type (10/26/2024 3:31 AM EDT) Pathologist [facility] POC Sample Type Arterial 10/26/2024 4:11 AM EDT [facility] Blood, Arterial 10/26/2024 3 :31 AM EDT 10/26/2024 4:11 AM EDT us Harvey Domínugez III, MD POINT OF CARE TEST ORDERABLES Final Result Performing Organization Address City/State/[facility] Co de Phone Number [facility] [address] [place] [address]. [address] * POC Anion Gap (10/26/2024 3:31 AM EDT) POC Anion Gap, Arterial 15 3 - 16 mmol/L 10/26/2024 4:11 AM EDT [facility] Blood, Arterial 10/26/2024 3 :31 AM EDT 10/26/2024 4:11 AM EDT us Harvey Domínguez III, MD POINT OF CARE TEST ORDERABLES Final Result Performing Organization Address [facility]/ZIP Co de Phone Number [facility] [address] * POC Chloride (10/26/2024 3:31 AM EDT) POC Chloride 105 98 - 110 mmol/L 10/26/2024 4:11 AM EDT [facility] Blood, Arterial 10/26/2024 3 :31 AM EDT 10/26/2024 4:11 AM EDT us Harvey Domínguez III, MD POINT OF CARE TEST ORDERABLES Final Result Performing Organization Address [facility] Co de Phone Number [facility] [address] [place] [facility]. [address] * (ABNORMAL) POC Hemoglobin (10/26/2024 3:31 AM EDT) POC Hemoglobin 9.7(L) 14.0 - 18.0 g/dL 10/26/2024 4:11 AM EDT [facility] Blood, Arterial 10/26/2024 3 :31 AM EDT 10/26/2024 4:11 AM EDT us Harvey Domínguez III, MD POINT OF CARE TEST ORDERABLES Final Result Performing Organization Address [facility] Co de Phone Number [facility] [address] [facility]. [address] * (ABNORMAL) POC hematocrit (10/26/2024 3:31 AM EDT) POC Hematocrit 29.0(L) 40 - 52 % 10/26/2024 4:11 AM EDT [facility] Blood, Arterial 10/26/2024 3 :31 AM EDT 10/26/2024 4:11 AM EDT us Harvey Domínguez III, MD POINT OF CARE TEST ORDERABLES Final Result [facility] [address] [facility]. [address] * (ABNORMAL) POC Lactate (10/26/2024 3:31 AM EDT) POC Lactate 3.54(H) 0.50 - 2.20 mmol/L 10/26/2024 4:11 AM EDT [facility] Blood, Arterial 10/26/2024 3 :31 AM EDT 10/26/2024 4:11 AM EDT us Harvey Domínguez III, MD POINT OF CARE TEST ORDERABLES Final Result Performing Organization Address [facility] Co de Phone Number [facility] [address] [facility]. [address] * (ABNORMAL) POC Glucose (10/26/2024 3:31 AM EDT) POC Glucose, Arterial 153(H) 70 - 100 mg/dL 10/26/2024 4:11 AM EDT [facility] Blood, Arterial 10/26/2024 3 :31 AM EDT 10/26/2024 4:11 AM EDT us Harvey Domínguez III, MD POINT OF CARE TEST ORDERABLES Final Result Performing Organization Address [facility] Co de Phone Number [facility] [address] [facility]. [address] * POC Ionized Calcium (10/26/2024 3:31 AM EDT) POC Ionized Calcium 5.10 4.50 - 5.30 mg/dL 10/26/2024 4:11 AM EDT [facility] Blood, Arterial 10/26/2024 3 :31 AM EDT 10/26/2024 4:11 AM EDT us Harvey Domínguez III, MD POINT OF CARE TEST ORDERABLES Final Result [facility] [address] * (ABNORMAL) POC Potassium (10/26/2024 3:31 AM EDT) POC Potassium 2.6(LL) 3.5 - 5.3 mmol/L 10/26/2024 4:11 AM EDT [facility] Blood, Arterial 10/26/2024 3 :31 AM EDT 10/26/2024 4:11 AM EDT us Harvey Domínguez III, MD POINT OF CARE TEST ORDERABLES Final Result Performing Organization Address [facility] Co de Phone Number [facility] [address] * POC Sodium (10/26/2024 3:31 AM EDT) POC Sodium 138 136 - 146 mmol/L 10/26/2024 4:11 AM EDT [facility] Blood, Arterial 10/26/2024 3 :31 AM EDT 10/26/2024 4:11 AM EDT us Harvey Domínguez III, MD POINT OF CARE TEST ORDERABLES Final Result Performing Organization Address [facility] Co de Phone Number [facility] [address] [place] [facility]. [address] * (ABNORMAL) POC TCO2 (10/26/2024 3:31 AM EDT) POC TCO2, Arterial 19(L) 23 - 27 mmol/L 10/26/2024 4:11 AM EDT [facility] Blood, Arterial 10/26/2024 3 :31 AM EDT 10/26/2024 4:11 AM EDT us Harvey Domínguez III, MD POINT OF CARE TEST ORDERABLES Final Result [facility] [address] * POC O2 SAT (10/26/2024 3:31 AM EDT) POC O2 Saturation, Arterial 97 95 - 98 % 10/26/2024 4:11 AM EDT [facility] Blood, Arterial 10/26/2024 3 :31 AM EDT 10/26/2024 4:11 AM EDT us Harvey Domínguez III, MD POINT OF CARE TEST ORDERABLES Final Result [facility] [address] * (ABNORMAL) POC Base Excess (10/26/2024 3:31 AM EDT) POC Base Excess, Arterial -9(L) -2 - 3 mmol/L 10/26/2024 4:11 AM EDT [facility] Blood, Arterial 10/26/2024 3 :31 AM EDT 10/26/2024 4:11 AM EDT us Harvey Domínguez III, MD POINT OF CARE TEST ORDERABLES Final Result Performing Organization Address City/[facility]/ZIP Co de Phone Number [facility] [address] * (ABNORMAL) POC HCO3 (10/26/2024 3:31 AM EDT) POC HCO3, Arterial 18(L) 22 - 26 mmol/L 10/26/2024 4:11 AM EDT [facility] Blood, Arterial 10/26/2024 3 :31 AM EDT 10/26/2024 4:11 AM EDT us Harvey Domínguez III, MD POINT OF CARE TEST ORDERABLES Final Result [facility] [address] * (ABNORMAL) POC PO2 (10/26/2024 3:31 AM EDT) POC pO2, Arterial 104(H) 80 - 100 mm Hg 10/26/2024 4:11 AM EDT [facility] Blood, Arterial 10/26/2024 3 :31 AM EDT 10/26/2024 4:11 AM EDT us Harvey Domínguez III, MD POINT OF CARE TEST ORDERABLES Final Result [facility] [address] * POC PCO2 (10/26/2024 3:31 AM EDT) POC pCO2, Arterial 42 35 - 45 mm Hg 10/26/2024 4:11 AM EDT [facility] Blood, Arterial 10/26/2024 3 :31 AM EDT 10/26/2024 4:11 AM EDT us Harvey Domínguez III, MD POINT OF CARE TEST ORDERABLES Final Result Performing Organization Address City/[facility]/ZIP Co de Phone Number [facility] [address] * (ABNORMAL) POC pH (10/26/2024 3:31 AM EDT) POC pH, Arterial 7.24(L) 7.35 - 7.45 10/26/2024 4:11 AM EDT [facility] Blood, Arterial 10/26/2024 3 :31 AM EDT 10/26/2024 4:11 AM EDT us Harvey Domínguez III, MD POINT OF CARE TEST ORDERABLES Final Result Performing Organization Address City/[facility]/ZIP Co de Phone Number [facility] [address] [facility]. [address] * (ABNORMAL) TEG-Global With Lysis (Baseline TEG with LY30, Will NOT Show Heparin Effect) (53:31 AM EDT) Pathologist [facility] Citrated Kaolin Reaction Time (TEGLYSIS) 6.8 4.6 - 9.1 minutes 10/26/2024 5:02 AM EDT [facility] Citrated Rapid Teg Maximum Amplitude (TEGLYSIS) <40.0(L) 52.0 - 70.0 mm 10/26/2024 5:02 AM EDT [facility] Citrated Functional Fibrinogen Maximum Amplitude (TEGLYSIS) <4.0(L) 15.0 - 32.0 mm 10/26/2024 5:02 AM EDT [facility] Citrated Kaolin Percent Lysis (TEGLYSIS) 1.4 0.0 - 2.6 % 10/26/2024 5:02 AM EDT [facility] Whole Blood (Citrate) 10/26/2024 3:31 AM EDT 10/26/2024 3:40 AM EDT us Eber Quinones MD LAB BLOOD ORDERABLES Fin al Result [facility] [address] [id number] * (ABNORMAL) CBC (10/26/2024 3:31 AM EDT) Pathologist [facility] WBC 9.5 3.8 - 10.8 10E3/uL 10/26/2024 3:48 AM EDT [facility] RBC 3.68(L) 4.20 - 5.80 10E6/uL 10/26/2024 3:48 AM EDT [facility] Hemoglobin 11.5(L) 13.2 - 17.1 g/dL 10/26/2024 3:48 AM EDT [facility] Hematocrit 33.0(L) 38.5 - 50.0 % 10/26/2024 3:48 AM EDT [facility] MCV 89.6 80.0 - 100.0 fL 10/26/2024 3:48 AM EDT [facility] MCH 31.1 27.0 - 33.0 pg 10/26/2024 3:48 AM EDT [facility] MCHC 34.8 32.0 - 36.0 g/dL 10/26/2024 3:48 AM EDT [facility] RDW 19.3(H) 11.0 - 15.0 % 10/26/2024 3:48 AM EDT [facility] Platelets 67(L) 140 - 400 10E3/uL 10/26/2024 3:48 AM EDT [facility] MPV 7.9 7.5 - 11.5 fL 10/26/2024 3:48 AM EDT [facility] Whole Blood 10/26/2024 3:31 AM EDT 10/26/2024 3:40 AM EDT Eber Quinones MD LAB BLOOD ORDERABLES Fin al Result Performing Organization Address [facility] de Phone Number [facility] [address] * (ABNORMAL) Protime-INR (10/26/2024 3:31 AM EDT) Protime 27.0(H) 12.1 - 15.1 seconds 10/26/2024 3:51 AM EDT [facility] INR 2.4(H) 0.9 - 1.1 10/26/2024 3:51 AM EDT [facility] Comment: RECOMMENDED THERAPEUTIC RANGES USING INR : Stable oral anticoagulant therapy: 2.0 - 3.0 Mechanical prosthetic heart valve: 2.5 - 3.5 Recurrent acute myocardial infarction: 2.5 - 3.5 Plasma 10/26/2024 3:31 AM EDT 10/26/2024 3:40 AM EDT Eber Quinones MD LAB BLOOD ORDERABLES Fin al Result Performing Organization Address [facility] Co de Phone Number [facility] [address] * (ABNORMAL) Fibrinogen (10/26/2024 3:31 AM EDT) Fibrinogen 104(L) 218 - 406 mg/dL 10/26/2024 3:56 AM EDT [facility] Plasma 10/26/2024 3:31 AM EDT 10/26/2024 3:40 AM EDT Eber Quinones MD LAB BLOOD ORDERABLES Fin al Result [facility] [address] [place] [address], [facility] * Transfuse Fresh Frozen Plasma (10/26/2024 3:16 AM EDT) us Ben Blake MD NURSING TREATMENT ORDERABLES - BLOOD ADMIN Final Result * Transfuse Fresh Frozen Plasma (10/26/2024 3:15 AM EDT) Result Tiburcio Blake MD NURSING TREATMENT ORDERABLES - BLOOD ADMIN Final Result * Transfuse RBC (10/26/2024 3:14 AM EDT) Result Tiburcio Blake MD NURSING TREATMENT ORDERABLES - BLOOD ADMIN Final Result * Transfuse RBC (10/26/2024 3:14 AM EDT) Result Tiburcio Blake MD NURSING TREATMENT ORDERABLES - BLOOD ADMIN Final Result * Transfuse RBC (10/26/2024 2:40 AM EDT) Result Tiburcio Blake MD NURSING TREATMENT ORDERABLES - BLOOD ADMIN Final Result * Transfuse Fresh Frozen Plasma (10/26/2024 2:39 AM EDT) Result Tiburcio Blake MD NURSING TREATMENT ORDERABLES - BLOOD ADMIN Final Result * Transfuse Fresh Frozen Plasma (10/26/2024 2:24 AM EDT) Result Tiburcio Blake MD NURSING TREATMENT ORDERABLES - BLOOD ADMIN Final Result * Transfuse Fresh Frozen Plasma (10/26/2024 2:03 AM EDT) Result Tiburcio Blake MD NURSING TREATMENT ORDERABLES - BLOOD ADMIN Final Result * Transfuse RBC (10/26/2024 2:01 AM EDT) Result Tiburcio Blake MD NURSING TREATMENT ORDERABLES - BLOOD ADMIN Final Result * Transfuse RBC (10/26/2024 1:45 AM EDT) Result [facility] Ben Blake MD NURSING TREATMENT ORDERABLES - BLOOD ADMIN Final Result * Transfuse RBC (10/26/2024 1:45 AM EDT) Result [facility] Ben Blake MD NURSING TREATMENT ORDERABLES - BLOOD ADMIN Final Result * (ABNORMAL) POC INR (10/26/2024 1:43 AM EDT) Prothrombin Time INR, POC 1.9(H) 0.8 - 1.4 10/27/2024 6:51 AM EDT [facility] Comment: Test results may vary using different testing platforms. Serial result monitoring should be performed using the same methodology. RECOMMENDED THERAPEUTIC RANGES USING INR : Stable oral anticoagulant therapy: 2.0 - 3.0 Mechanical prosthetic heart valve: 2.5 - 3.5 Recurrent acute myocardial infarction: 2.5 - 3.5 Blood 10/26/2024 1:43 AM EDT 10/27/2024 6:51 AM EDT Result [facility] Harvey Domínguez III, MD POINT OF CARE TEST ORDERABLES Final Result [facility] [address] [id number], [facility] * Transfuse Fresh Frozen Plasma (10/26/2024 1:41 AM EDT) Result [facility] Ben Blake MD NURSING TREATMENT ORDERABLES - BLOOD ADMIN Final Result * Transfuse RBC (10/26/2024 1:40 AM EDT) Result [facility] Ben Blake MD NURSING TREATMENT ORDERABLES - BLOOD ADMIN Final Result * POC Sample Type (10/26/2024 1:40 AM EDT) POC Sample Type Arterial 10/26/2024 2:32 AM EDT [facility] Blood, Arterial 10/26/2024 1 :40 AM EDT 10/26/2024 2:32 AM EDT Result [facility] us Harvey Domínguez III, MD POINT OF CARE TEST ORDERABLES Final Result Performing Organization Address [facility] Co de Phone Number [facility] [address] * POC Anion Gap (10/26/2024 1:40 AM EDT) POC Anion Gap, Arterial 13 3 - 16 mmol/L 10/26/2024 2:32 AM EDT [facility] Blood, Arterial 10/26/2024 1 :40 AM EDT 10/26/2024 2:32 AM EDT us Harvey Domínguez III, MD POINT OF CARE TEST ORDERABLES Final Result Performing Organization Address [facility] Co de Phone Number [facility] [address] [place] [facility]. [address] * POC Chloride (10/26/2024 1:40 AM EDT) POC Chloride 104 98 - 110 mmol/L 10/26/2024 2:32 AM EDT [facility] Blood, Arterial 10/26/2024 1 :40 AM EDT 10/26/2024 2:32 AM EDT us Harvey Domínguez III, MD POINT OF CARE TEST ORDERABLES Final Result Performing Organization Address [facility] Co de Phone Number [facility] [address] [facility]. [address] * (ABNORMAL) POC Hemoglobin (10/26/2024 1:40 AM EDT) POC Hemoglobin 7.4(L) 14.0 - 18.0 g/dL 10/26/2024 2:32 AM EDT [facility] Blood, Arterial 10/26/2024 1 :40 AM EDT 10/26/2024 2:32 AM EDT us Harvey Domínguez III, MD POINT OF CARE TEST ORDERABLES Final Result [facility] [address] * (ABNORMAL) POC hematocrit (10/26/2024 1:40 AM EDT) POC Hematocrit 22.0(L) 40 - 52 % 10/26/2024 2:32 AM EDT [facility] Blood, Arterial 10/26/2024 1 :40 AM EDT 10/26/2024 2:32 AM EDT us Harvey Domínguez III, MD POINT OF CARE TEST ORDERABLES Final Result Performing Organization Address [facility] de Phone Number [facility] [address] [facility]. [address] * (ABNORMAL) POC Lactate (10/26/2024 1:40 AM EDT) POC Lactate 2.30(H) 0.50 - 2.20 mmol/L 10/26/2024 2:32 AM EDT [facility] Blood, Arterial 10/26/2024 1 :40 AM EDT 10/26/2024 2:32 AM EDT us Harvey Domínguez III, MD POINT OF CARE TEST ORDERABLES Final Result Performing Organization Address [facility] de Phone Number [facility] [address] [facility]. [address] * (ABNORMAL) POC Glucose (10/26/2024 1:40 AM EDT) POC Glucose, Arterial 116(H) 70 - 100 mg/dL 10/26/2024 2:32 AM EDT [facility] Blood, Arterial 10/26/2024 1 :40 AM EDT 10/26/2024 2:32 AM EDT us Harvey Domínguez III, MD POINT OF CARE TEST ORDERABLES Final Result Performing Organization Address [facility] Co de Phone Number [facility] [address] [facility]. [address] * (ABNORMAL) POC Ionized Calcium (10/26/2024 1:40 AM EDT) POC Ionized Calcium 4.10(L) 4.50 - 5.30 mg/dL 10/26/2024 2:32 AM EDT [facility] Blood, Arterial 10/26/2024 1 :40 AM EDT 10/26/2024 2:32 AM EDT us Harvey Domínguez III, MD POINT OF CARE TEST ORDERABLES Final Result Performing Organization Address [facility] Co de Phone Number [facility] [address] [facility]. [address] * (ABNORMAL) POC Potassium (10/26/2024 1:40 AM EDT) POC Potassium 2.6(LL) 3.5 - 5.3 mmol/L 10/26/2024 2:32 AM EDT [facility] Blood, Arterial 10/26/2024 1 :40 AM EDT 10/26/2024 2:32 AM EDT us Harvey Domínguez III, MD POINT OF CARE TEST ORDERABLES Final Result Performing Organization Address [facility] Co de Phone Number [facility] [address] [facility]. [address] * (ABNORMAL) POC Sodium (10/26/2024 1:40 AM EDT) POC Sodium 135(L) 136 - 146 mmol/L 10/26/2024 2:32 AM EDT [facility] Blood, Arterial 10/26/2024 1 :40 AM EDT 10/26/2024 2:32 AM EDT us Harvey Domínguez III, MD POINT OF CARE TEST ORDERABLES Final Result [facility] [address] * (ABNORMAL) POC TCO2 (10/26/2024 1:40 AM EDT) POC TCO2, Arterial 19(L) 23 - 27 mmol/L 10/26/2024 2:32 AM EDT [facility] Blood, Arterial 10/26/2024 1 :40 AM EDT 10/26/2024 2:32 AM EDT us Harvey Domínguez III, MD POINT OF CARE TEST ORDERABLES Final Result [facility] [address] * (ABNORMAL) POC O2 SAT (10/26/2024 1:40 AM EDT) POC O2 Saturation, Arterial 99(H) 95 - 98 % 10/26/2024 2:32 AM EDT [facility] Blood, Arterial 10/26/2024 1 :40 AM EDT 10/26/2024 2:32 AM EDT us Harvey Domínguez III, MD POINT OF CARE TEST ORDERABLES Final Result Performing Organization Address City/[facility]/ZIP Co de Phone Number [facility] [address] * (ABNORMAL) POC Base Excess (10/26/2024 1:40 AM EDT) POC Base Excess, Arterial -7(L) -2 - 3 mmol/L 10/26/2024 2:32 AM EDT [facility] Blood, Arterial 10/26/2024 1 :40 AM EDT 10/26/2024 2:32 AM EDT us Harvey Domínguez III, MD POINT OF CARE TEST ORDERABLES Final Result [facility] [address] * (ABNORMAL) POC HCO3 (10/26/2024 1:40 AM EDT) POC HCO3, Arterial 18(L) 22 - 26 mmol/L 10/26/2024 2:32 AM EDT [facility] Blood, Arterial 10/26/2024 1 :40 AM EDT 10/26/2024 2:32 AM EDT Harvey Domínguez III, MD POINT OF CARE TEST ORDERABLES Final Result [facility] [address] * (ABNORMAL) POC PO2 (10/26/2024 1:40 AM EDT) POC pO2, Arterial 145(H) 80 - 100 mm Hg 10/26/2024 2:32 AM EDT [facility] Blood, Arterial 10/26/2024 1 :40 AM EDT 10/26/2024 2:32 AM EDT us Harvey Domínguez III, MD POINT OF CARE TEST ORDERABLES Final Result Performing Organization Address City/[facility]/ZIP Co de Phone Number [facility] [address] * (ABNORMAL) POC PCO2 (10/26/2024 1:40 AM EDT) POC pCO2, Arterial 33(L) 35 - 45 mm Hg 10/26/2024 2:32 AM EDT [facility] Blood, Arterial 10/26/2024 1 :40 AM EDT 10/26/2024 2:32 AM EDT us Harvey Domínguez III, MD POINT OF CARE TEST ORDERABLES Final Result [facility] [address] * POC pH (10/26/2024 1:40 AM EDT) POC pH, Arterial 7.35 7.35 - 7.45 10/26/2024 2:32 AM EDT [facility] Blood, Arterial 10/26/2024 1 :40 AM EDT 10/26/2024 2:32 AM EDT us Harvey Domínguez III, MD POINT OF CARE TEST ORDERABLES Final Result Performing Organization Address [facility] Co de Phone Number [facility] [address] * Transfuse Fresh Frozen Plasma (10/26/2024 1:20 AM EDT) us Ben Blake MD NURSING TREATMENT ORDERABLES - BLOOD ADMIN Final Result * Transfuse RBC (10/26/2024 12:56 AM EDT) us Ben Blake MD NURSING TREATMENT ORDERABLES - BLOOD ADMIN Final Result * (ABNORMAL) POC INR (10/26/2024 12:41 AM EDT) Prothrombin Time INR, POC 2.0(H) 0.8 - 1.4 10/27/2024 6:51 AM EDT [facility] Comment: Test results may vary [...] TEST ORDERABLES Final Result Performing Organization Address City/[facility]/ZIP Co de Phone Number [facility] [address] * POC Sample Type (10/26/2024 12:39 AM EDT) POC Sample Type Arterial 10/26/2024 1:38 AM EDT [facility] Blood, Arterial 10/26/2024 1 2:39 AM EDT 10/26/2024 1:38 AM EDT us Harvey Domínguez III, MD POINT OF CARE TEST ORDERABLES Final Result [facility] [address] [place] [address]. [address] * POC Anion Gap (10/26/2024 12:39 AM EDT) Pathologist [facility] POC Anion Gap, Arterial 13 3 - 16 mmol/L 10/26/2024 1:38 AM EDT [facility] Blood, Arterial 10/26/2024 1 2:39 AM EDT 10/26/2024 1:38 AM EDT Harvey Domínguez III, MD POINT OF CARE TEST ORDERABLES Final Result Performing Organization Address City/[facility] Co de Phone Number [facility] [address] [facility]. [address] * POC Chloride (10/26/2024 12:39 AM EDT) [facility] POC Chloride 103 98 - 110 mmol/L 10/26/2024 1:38 AM EDT [facility] Blood, Arterial 10/26/2024 1 2:39 AM EDT 10/26/2024 1:38 AM EDT us Harvey Domínguez III, MD POINT OF CARE TEST ORDERABLES Final Result Performing Organization Address City/[facility] Co de Phone Number [facility] [address] * (ABNORMAL) POC Hemoglobin (10/26/2024 12:39 AM EDT) Pathologist [facility] POC Hemoglobin 7.9(L) 14.0 - 18.0 g/dL 10/26/2024 1:38 AM EDT [facility] Blood, Arterial 10/26/2024 1 2:39 AM EDT 10/26/2024 1:38 AM EDT us Harvey Domínguez III, MD POINT OF CARE TEST ORDERABLES Final Result Performing Organization Address City/[facility]/ZIP Co de Phone Number [facility] [address] [facility]. [address] * (ABNORMAL) POC hematocrit (10/26/2024 12:39 AM EDT) POC Hematocrit 23.0(L) 40 - 52 % 10/26/2024 1:38 AM EDT [facility] Blood, Arterial 10/26/2024 1 2:39 AM EDT 10/26/2024 1:38 AM EDT us Harvey Domínguez III, MD POINT OF CARE TEST ORDERABLES Final Result Performing Organization Address [facility] Co de Phone Number [facility] [address] [facility]. [address] * POC Lactate (10/26/2024 12:39 AM EDT) POC Lactate 1.39 0.50 - 2.20 mmol/L 10/26/2024 1:38 AM EDT [facility] Blood, Arterial 10/26/2024 1 2:39 AM EDT 10/26/2024 1:38 AM EDT us Harvey Domínguez III, MD POINT OF CARE TEST ORDERABLES Final Result Performing Organization Address City/[facility] Co de Phone Number [facility] [address] [facility]. [address] * (ABNORMAL) POC Glucose (10/26/2024 12:39 AM EDT) POC Glucose, Arterial 116(H) 70 - 100 mg/dL 10/26/2024 1:38 AM EDT [facility] Blood, Arterial 10/26/2024 1 2:39 AM EDT 10/26/2024 1:38 AM EDT us Harvey Domínguez III, MD POINT OF CARE TEST ORDERABLES Final Result [facility] [address] [place] [address]. [address] * (ABNORMAL) POC Ionized Calcium (10/26/2024 12:39 AM EDT) POC Ionized Calcium 4.30(L) 4.50 - 5.30 mg/dL 10/26/2024 1:38 AM EDT [facility] Blood, Arterial 10/26/2024 1 2:39 AM EDT 10/26/2024 1:38 AM EDT us Harvey Domínguez III, MD POINT OF CARE TEST ORDERABLES Final Result Performing Organization Address [facility] Co de Phone Number [facility] [address] * (ABNORMAL) POC Potassium (10/26/2024 12:39 AM EDT) POC Potassium 2.4(LL) 3.5 - 5.3 mmol/L 10/26/2024 1:38 AM EDT [facility] Blood, Arterial 10/26/2024 1 2:39 AM EDT 10/26/2024 1:38 AM EDT us Harvey Domínguez III, MD POINT OF CARE TEST ORDERABLES Final Result Performing Organization Address City/[facility] Co de Phone Number [facility] [address] [facility]. [address] * POC Sodium (10/26/2024 12:39 AM EDT) POC Sodium 136 136 - 146 mmol/L 10/26/2024 1:38 AM EDT [facility] Blood, Arterial 10/26/2024 1 2:39 AM EDT 10/26/2024 1:38 AM EDT us Harvey Domínguez III, MD POINT OF CARE TEST ORDERABLES Final Result Performing Organization Address City/[facility]/ZIP Co de Phone Number [facility] [address] * (ABNORMAL) POC TCO2 (10/26/2024 12:39 AM EDT) POC TCO2, Arterial 21(L) 23 - 27 mmol/L 10/26/2024 1:38 AM EDT [facility] Blood, Arterial 10/26/2024 1 2:39 AM EDT 10/26/2024 1:38 AM EDT us Harvey Domínguez III, MD POINT OF CARE TEST ORDERABLES Final Result Performing Organization Address [facility] Co de Phone Number [facility] [address] [facility]. [address] * POC O2 SAT (10/26/2024 12:39 AM EDT) POC O2 Saturation, Arterial 98 95 - 98 % 10/26/2024 1:38 AM EDT [facility] Blood, Arterial 10/26/2024 1 2:39 AM EDT 10/26/2024 1:38 AM EDT us Harvey Domínguez III, MD POINT OF CARE TEST ORDERABLES Final Result Performing Organization Address City/[facility] Co de Phone Number [facility] [address] [facility]. [address] * (ABNORMAL) POC Base Excess (10/26/2024 12:39 AM EDT) POC Base Excess, Arterial -7(L) -2 - 3 mmol/L 10/26/2024 1:38 AM EDT [facility] Blood, Arterial 10/26/2024 1 2:39 AM EDT 10/26/2024 1:38 AM EDT us Harvey Domínguez III, MD POINT OF CARE TEST ORDERABLES Final Result Performing Organization Address City/[facility] Co de Phone Number [facility] [address] [facility]. [address] * (ABNORMAL) POC HCO3 (10/26/2024 12:39 AM EDT) POC HCO3, Arterial 20(L) 22 - 26 mmol/L 10/26/2024 1:38 AM EDT [facility] Blood, Arterial 10/26/2024 1 2:39 AM EDT 10/26/2024 1:38 AM EDT us Harvey Domínguez III, MD POINT OF CARE TEST ORDERABLES Final Result Performing Organization Address [facility] Co de Phone Number [facility] [address] * (ABNORMAL) POC PO2 (10/26/2024 12:39 AM EDT) POC pO2, Arterial 117(H) 80 - 100 mm Hg 10/26/2024 1:38 AM EDT [facility] Blood, Arterial 10/26/2024 1 2:39 AM EDT 10/26/2024 1:38 AM EDT us Harvey Domínguez III, MD POINT OF CARE TEST ORDERABLES Final Result Performing Organization Address City/[facility] Co de Phone Number [facility] [address] [facility]. [address] * (ABNORMAL) POC PCO2 (10/26/2024 12:39 AM EDT) POC pCO2, Arterial 46(H) 35 - 45 mm Hg 10/26/2024 1:38 AM EDT [facility] Blood, Arterial 10/26/2024 1 2:39 AM EDT 10/26/2024 1:38 AM EDT us Harvey Domínguez III, MD POINT OF CARE TEST ORDERABLES Final Result Performing Organization Address [facility] Co de Phone Number [facility] [address] [facility]. [address] * (ABNORMAL) POC pH (10/26/2024 12:39 AM EDT) POC pH, Arterial 7.24(L) 7.35 - 7.45 10/26/2024 1:38 AM EDT [facility] Blood, Arterial 10/26/2024 1 2:39 AM EDT 10/26/2024 1:38 AM EDT us Harvey Domínguez III, MD POINT OF CARE TEST ORDERABLES Final Result Performing Organization Address [facility] de Phone Number [facility] [address] [facility]. [address] * Transfuse Platelets (10/26/2024 12:37 AM EDT) Result [facility] Ben Blake MD NURSING TREATMENT ORDERABLES - BLOOD ADMIN Final Result * Transfuse RBC (10/26/2024 12:31 AM EDT) us Ben Blake MD NURSING TREATMENT ORDERABLES - BLOOD ADMIN Final Result * Transfuse Fresh Frozen Plasma (10/26/2024 12:28 AM EDT) us Ben Blake MD NURSING TREATMENT ORDERABLES - BLOOD ADMIN Final Result * Transfuse Fresh Frozen Plasma (10/26/2024 12:28 AM EDT) us Ben Blake MD NURSING TREATMENT ORDERABLES - BLOOD ADMIN Final Result * Routine Culture plus Stain (10/26/2024 12:03 AM EDT) Gram Stain Result Cytospin Results: [facility] Gram Stain Result Polymorphonuclear Leukocytes Seen; [facility] Gram Stain Result No Organisms Seen; [facility] Culture Result No Growth After 3 Days [facility] Surgical Swab ABDOMEN / Unknown 12:03 AM EDT Comment:2.) Ascites Anaerobhic culture Fungus culture Routine culture plus stain Narrative [facility] - 10/28/2024 9:38 PM EDT 2.) Ascites Anaerobhic culture Fungus culture Routine culture plus stain 2.) Ascites Harvey Domínguez III, MD MICROBIOLOGY - GENE RAL ORDERABLES Final Result [facility] [address] [id number], [facility] * Surgical Pathology Exam (10/26/2024 12:00 AM EDT) 10/26/2024 10/27/2024 Narrative [facility] - 10/26/2024 12:00 AM EDT CASE: [id number] PATIENT: BLAIR GILBERT Clinical History: Liver - kidney transplant Pre-Operative Diagnosis: Alcoholic cirrhosis of liver Post-Operative Diagnosis: Alcoholic cirrhosis of liver Specimen(s) Submitted: A. rampart liver CPT Code(s): 66549 X 1; 64562 X 5 Additional Information: FINAL DIAGNOSIS: A. 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 - Negative for neoplasm. - Increased hepatocellular iron deposition (3+; Modified Scheuer). Gall bladder: -Intramucosal and submucosal vascular congestion and hemorrhage. - Negative for dysplasia or malignancy. Gross Description: Received in formalin, labeled Blair Gilbert and rampart liver , is a 2338-gram, hepatectomy specimen [...] discrete masses or other lesions are identified. Molder sections are submitted in cassettes [id number] as follows: A1: Hilar margins, en face. A2: Cystic duct margin (en face), neck, body, and fundus. A3-A5: Right lobe ( liver is A3). A6-A8: Left lobe. (Kaushik Sandoval, NAA/gr) Microscopic Description: Trichrome stain highlights fibrous bands [...] Pathologist signing this report is located at [facility], [address] [place] [address], [facility] [phone], CLIA ID: [id number] us Harvey Domínguez III, MD PATHOLOGY/CYTOLOGY ORDERABLES Final Result [facility] * Transfuse Fresh Frozen Plasma (10/25/2024 11:47 PM EDT) us Ben Blake MD NURSING TREATMENT ORDERABLES - BLOOD ADMIN Final Result * Transfuse RBC (10/25/2024 11:45 PM EDT) Ben Blake MD NURSING TREATMENT ORDERABLES - BLOOD ADMIN Final Result * Transfuse RBC (10/25/2024 11:45 PM EDT) Ben Blake MD NURSING TREATMENT ORDERABLES - BLOOD ADMIN Final Result * (ABNORMAL) POC INR (10/25/2024 11:43 PM EDT) Prothrombin Time INR, POC 1.7(H) 0.8 - 1.4 10/27/2024 6:51 AM EDT [facility] Comment: Test results may vary using [...] POINT OF CARE TEST ORDERABLES Final Result [facility] [address] * POC Sample Type (10/25/2024 11:40 PM EDT) [facility] POC Sample Type Arterial 10/25/2024 11:57 PM EDT [facility] Blood, Arterial 10/25/2024 1 1:40 PM EDT 10/25/2024 11:57 PM EDT Harvey Domínguez III, MD POINT OF CARE TEST ORDERABLES Final Result [facility] [address] * POC Anion Gap (10/25/2024 11:40 PM EDT) Pathologist [facility] POC Anion Gap, Arterial 13 3 - 16 mmol/L 10/25/2024 11:57 PM EDT [facility] Blood, Arterial 10/25/2024 1 1:40 PM EDT 10/25/2024 11:57 PM EDT us Harvey Domínguez III, MD POINT OF CARE TEST ORDERABLES Final Result [facility] [address] * POC Chloride (10/25/2024 11:40 PM EDT) POC Chloride 102 98 - 110 mmol/L 10/25/2024 11:57 PM EDT [facility] Blood, Arterial 10/25/2024 1 1:40 PM EDT 10/25/2024 11:57 PM EDT us Harvey Domínguez III, MD POINT OF CARE TEST ORDERABLES Final Result Performing Organization Address [facility]/ZIP Co de Phone Number [facility] [address] [facility]. [address] * (ABNORMAL) POC Hemoglobin (10/25/2024 11:40 PM EDT) POC Hemoglobin 6.6(L) 14.0 - 18.0 g/dL 10/25/2024 11:57 PM EDT [facility] Blood, Arterial 10/25/2024 1 1:40 PM EDT 10/25/2024 11:57 PM EDT us Harvey Domínguez III, MD POINT OF CARE TEST ORDERABLES Final Result Performing Organization Address City/[facility]/ZIP Co de Phone Number [facility] [address]. [address] * (ABNORMAL) POC hematocrit (10/25/2024 11:40 PM EDT) POC Hematocrit 19.0(L) 40 - 52 % 10/25/2024 11:57 PM EDT [facility] Blood, Arterial 10/25/2024 1 1:40 PM EDT 10/25/2024 11:57 PM EDT us Harvey Domínguez III, MD POINT OF CARE TEST ORDERABLES Final Result Performing Organization Address City/[facility]/ZIP Co de Phone Number [facility] [address] [place] [address]. [address] * POC Lactate (10/25/2024 11:40 PM EDT) Pathologist [facility] POC Lactate 1.36 0.50 - 2.20 mmol/L 10/25/2024 11:57 PM EDT [facility] Blood, Arterial 10/25/2024 1 1:40 PM EDT 10/25/2024 11:57 PM EDT us Harvey Domínguez III, MD POINT OF CARE TEST ORDERABLES Final Result Performing Organization Address City/[facility]/ZIP Co de Phone Number [facility] [address] [facility]. [address] * (ABNORMAL) POC Glucose (10/25/2024 11:40 PM EDT) [facility] POC Glucose, Arterial 101(H) 70 - 100 mg/dL 10/25/2024 11:57 PM EDT [facility] Blood, Arterial 10/25/2024 1 1:40 PM EDT 10/25/2024 11:57 PM EDT Harvey Domínguez III, MD POINT OF CARE TEST ORDERABLES Final Result [facility] [address] [facility]. [address] * POC Ionized Calcium (10/25/2024 11:40 PM EDT) Pathologist [facility] POC Ionized Calcium 4.50 4.50 - 5.30 mg/dL 10/25/2024 11:57 PM EDT [facility] Blood, Arterial 10/25/2024 1 1:40 PM EDT 10/25/2024 11:57 PM EDT us Harvey Domínguez III, MD POINT OF CARE TEST ORDERABLES Final Result [facility] [address] [facility]. [address] * (ABNORMAL) POC Potassium (10/25/2024 11:40 PM EDT) POC Potassium 1.9(LL) 3.5 - 5.3 mmol/L 10/25/2024 11:57 PM EDT [facility] Blood, Arterial 10/25/2024 1 1:40 PM EDT 10/25/2024 11:57 PM EDT us Harvey Domínguez III, MD POINT OF CARE TEST ORDERABLES Final Result Performing Organization Address City/[facility]/ZIP Co de Phone Number [facility] [address] [facility]. [address] * (ABNORMAL) POC Sodium (10/25/2024 11:40 PM EDT) Pathologist [facility] POC Sodium 135(L) 136 - 146 mmol/L 10/25/2024 11:57 PM EDT [facility] Blood, Arterial 10/25/2024 1 1:40 PM EDT 10/25/2024 11:57 PM EDT Harvey Domínguez III, MD POINT OF CARE TEST ORDERABLES Final Result [facility] [address] [facility]. [address] * (ABNORMAL) POC TCO2 (10/25/2024 11:40 PM EDT) POC TCO2, Arterial 21(L) 23 - 27 mmol/L 10/25/2024 11:57 PM EDT [facility] Blood, Arterial 10/25/2024 1 1:40 PM EDT 10/25/2024 11:57 PM EDT us Harvey Domínguez III, MD POINT OF CARE TEST ORDERABLES Final Result [facility] [address] [facility]. [address] * POC O2 SAT (10/25/2024 11:40 PM EDT) POC O2 Saturation, Arterial 98 95 - 98 % 10/25/2024 11:57 PM EDT [facility] Blood, Arterial 10/25/2024 1 1:40 PM EDT 10/25/2024 11:57 PM EDT us Harvey Domínguez III, MD POINT OF CARE TEST ORDERABLES Final Result Performing Organization Address City/[facility]/ZIP Co de Phone Number [facility] [address] [facility]. [address] * (ABNORMAL) POC Base Excess (10/25/2024 11:40 PM EDT) POC Base Excess, Arterial -6(L) -2 - 3 mmol/L 10/25/2024 11:57 PM EDT [facility] Blood, Arterial 10/25/2024 1 1:40 PM EDT 10/25/2024 11:57 PM EDT us Harvey Domínguez III, MD POINT OF CARE TEST ORDERABLES Final Result [facility] [address] [facility]. [address] * (ABNORMAL) POC HCO3 (10/25/2024 11:40 PM EDT) POC HCO3, Arterial 20(L) 22 - 26 mmol/L 10/25/2024 11:57 PM EDT [facility] Blood, Arterial 10/25/2024 1 1:40 PM EDT 10/25/2024 11:57 PM EDT us Harvey Domínguez III, MD POINT OF CARE TEST ORDERABLES Final Result Performing Organization Address City/[facility] Co de Phone Number [facility] [address] * (ABNORMAL) POC PO2 (10/25/2024 11:40 PM EDT) POC pO2, Arterial 107(H) 80 - 100 mm Hg 10/25/2024 11:57 PM EDT [facility] Blood, Arterial 10/25/2024 1 1:40 PM EDT 10/25/2024 11:57 PM EDT us Harvey Domínguez III, MD POINT OF CARE TEST ORDERABLES Final Result Performing Organization Address [facility] Co de Phone Number [facility] [address] [facility]. [address] * POC PCO2 (10/25/2024 11:40 PM EDT) POC pCO2, Arterial 41 35 - 45 mm Hg 10/25/2024 11:57 PM EDT [facility] Blood, Arterial 10/25/2024 1 1:40 PM EDT 10/25/2024 11:57 PM EDT us Harvey Domínguez III, MD POINT OF CARE TEST ORDERABLES Final Result Performing Organization Address City/[facility] Co de Phone Number [facility] [address] [facility]. [address] * (ABNORMAL) POC pH (10/25/2024 11:40 PM EDT) POC pH, Arterial 7.29(L) 7.35 - 7.45 10/25/2024 11:57 PM EDT [facility] Blood, Arterial 10/25/2024 1 1:40 PM EDT 10/25/2024 11:57 PM EDT us Harvey Domínguez III, MD POINT OF CARE TEST ORDERABLES Final Result [facility] [address] [facility]. [address] * Urine culture (10/25/2024 11:08 PM EDT) Culture Result <1,000 cfu/mL [facility] Culture Result Skin/Urogeni rony Mckayla. No Further Workup. [facility] Newly Placed Berkowitz Urine URINE SPECIMEN / Unknown 10/25/2024 11:08 PM EDT Comment:urine culture Narrative [facility] - 10/28/2024 9:59 AM EDT urine culture urine culture Harvey Domínguez III, MD MICROBIOLOGY - GENE RAL ORDERABLES Final Result Performing Organization Address City/[facility] Co de Phone Number [facility] [address] [facility]. [address] * X-ray Portable Chest (10/25/2024 10:19 [...] Sanderson DO at 10/25/2024 10:38 PM EDT Leandra Og MD IMG DIAGNOSTIC IMAGING ORDERABLES Final Result * Lactic Acid, STAT (10/25/2024 10:17 PM EDT) Lactate 1.6 0.5 - 2.2 mmol/L 10/25/2024 10:39 PM EDT [facility] Plasma 10/25/2024 10:1 7 PM EDT 10/25/2024 10:17 PM EDT Ben Blake MD LAB BLOOD ORDERABLES Final Re sult [facility] [address] [place] [address], [facility] * (ABNORMAL) Ferritin (10/25/2024 10:17 PM EDT) Ferritin 623.2(H) 23.9 - 336.2 ng/mL 10/25/2024 11:02 PM EDT [facility] Serum 10/25/2024 10:1 7 PM EDT 10/25/2024 10:17 PM EDT us Leandra Og MD LAB BLOOD ORDERABLES F inal Result [facility] [address] [facility]. [address] * Iron Studies (Iron + TIBC) (10/25/2024 10:17 PM EDT) Iron 128 50 - 212 ug/dL 10/25/2024 10:44 PM EDT [facility] % Iron Saturation SEE COMMENT 15.0 - 55.0 % 10/25/2024 10:44 PM EDT [facility] Comment:Unable to calculate result because contributing result outside reportable range.. TIBC SEE COMMENT 261 - 462 ug/dL 10/25/2024 10:44 PM EDT [facility] Comment:Unable to calculate result because contributing result outside reportable range.. Serum 10/25/2024 10:1 7 PM EDT 10/25/2024 10:17 PM EDT us Leandra Og MD LAB BLOOD ORDERABLES F inal Result Performing Organization Address City/[facility]/ZIP Co de Phone Number [facility] [address] [facility]. [address] * PTH (10/25/2024 10:17 PM EDT) PTH 36.0 12.0 - 88.0 pg/mL 10/25/2024 11:01 PM EDT [facility] Serum 10/25/2024 10:1 7 PM EDT 10/25/2024 10:17 PM EDT us Leandra Og MD LAB BLOOD ORDERABLES F inal Result [facility] [address] [facility]. [address] * HIV 1+2 Antibody/Antigen with Reflex (10/25/2024 10:17 PM EDT) HIV 1+2 AB/AGN Nonreactive Nonreactive 10/25/2024 11:03 PM EDT [facility] Serum 10/25/2024 10:1 7 PM EDT 10/25/2024 10:16 PM EDT [facility] - 10/25/2024 11:03 PM EDT \HIVRNR us Leandra Og MD LAB BLOOD ORDERABLES F inal Result Performing Organization Address [facility] Co de Phone Number [facility] [address] [facility]. [address] * Hepatitis B Core Antibody (10/25/2024 10:17 PM EDT) Hep B Core Total Ab Nonreactive Nonreactive 10/25/2024 11:07 PM EDT [facility] Comment:Health Department no tified in accordance with reportable infectious disease guidelines. Serum 10/25/2024 10:1 7 PM EDT 10/25/2024 10:17 PM EDT [facility] - 10/25/2024 11:07 PM EDT A nonreactive final interpretation indicates that anti-HBc antibodies were not detected in the sample; it is possible that the individual is not infected with HBV. us Leandra Og MD LAB BLOOD ORDERABLES F inal Result Performing Organization Address [facility] Co de Phone Number [facility] [address] [facility]. [address] * Hepatitis C Antibody (10/25/2024 10:17 PM EDT) HCV Ab Nonreactive Nonreactive 10/25/2024 11:16 PM EDT [facility] Comment:Health Department no tified in accordance with reportable infectious disease guidelines. Serum 10/25/2024 10:1 7 PM EDT 10/25/2024 10:17 PM EDT [facility] - 10/25/2024 11:16 PM EDT Antibodies to HCV not detected; does not exclude the possibility of exposure to HCV. Leandra Og MD LAB BLOOD ORDERABLES F inal Result Performing Organization Address City/[facility]/ZIP Co de Phone Number [facility] [address] [facility]. [address] * (ABNORMAL) Hepatitis B Surface Antibody, Quantitati (10/25/2024 10:17 PM EDT) [facility] HBSAB NUMBER 10.70(H) 0.00 - 9.99 mIU/mL 10/25/2024 11:52 PM EDT [facility] Hep B S Ab Equivocal (A) Nonreactive 10/25/2024 11:52 PM EDT [facility] Serum 10/25/2024 10:1 7 PM EDT 10/25/2024 10:17 PM EDT Leandra Og MD LAB BLOOD ORDERABLES F inal Result Performing Organization Address [facility] Co de Phone Number [facility] [address] [facility]. [address] * Hepatitis B surface antigen (10/25/2024 10:17 PM EDT) [facility] Hep B Surface Ag Nonreactive Nonreactive 10/25/2024 11:12 PM EDT [facility] Comment:Health Department no tified in accordance with reportable infectious disease guidelines. Serum 10/25/2024 10:1 7 PM EDT 10/25/2024 10:17 PM EDT Narrative [facility] - 10/25/2024 11:12 PM EDT Specimen is considered negative for HBsAg. Leandra Og MD LAB BLOOD ORDERABLES F inal Result Performing Organization Address City/[facility] Co de Phone Number [facility] [address] [facility]. [address] * Hepatitis A Antibody Total (10/25/2024 10:17 PM EDT) [facility] Anti-HAV Total (IgG + IgM) Nonreactive 10/25/2024 11:13 PM EDT [facility] Serum 10/25/2024 10:1 7 PM EDT 10/25/2024 10:17 PM EDT [facility] - 10/25/2024 11:13 PM EDT HAV antibodies not detected Leandra Og MD LAB BLOOD ORDERABLES F inal Result Performing Organization Address City/[facility]/ZIP Co de Phone Number [facility] [address] [facility]. [address] * (ABNORMAL) Hepatic Function Panel (10/25/2024 10:17 PM EDT) Pathologist [facility] Total Bilirubin 9.1(H) 0.0 - 1.5 mg/dL 10/25/2024 10:47 PM EDT [facility] Bilirubin, Direct 4.58(H) 0.00 - 0.40 mg/dL 10/25/2024 10:47 PM EDT [facility] AST 51(H) 13 - 39 U/L 10/25/2024 10:47 PM EDT [facility] ALT 23 7 - 52 U/L 10/25/2024 10:47 PM EDT [facility] Alkaline Phosphatase 144(H) 36 - 125 U/L 10/25/2024 10:47 PM EDT [facility] Total Protein 5.5(L) 6.4 - 8.9 g/dL 10/25/2024 10:47 PM EDT [facility] Albumin 3.5 3.5 - 5.7 g/dL 10/25/2024 10:47 PM EDT [facility] Bilirubin, Indirect 4.52(H) 0.00 - 1.10 mg/dL 10/25/2024 10:47 PM EDT [facility] Plasma 10/25/2024 10:1 7 PM EDT 10/25/2024 10:17 PM EDT us Leandra Og MD LAB BLOOD ORDERABLES F inal Result [facility] [address] * (ABNORMAL) Renal Function Panel w/EGFR (10/25/2024 10:17 PM EDT) Sodium 137 133 - 146 mmol/L 10/25/2024 10:47 PM EDT [facility] Potassium 2.1(LL) 3.5 - 5.3 mmol/L 10/25/2024 10:47 PM EDT [facility] Comment:Critical Result K:2. 1 Called to and read back by: ALICIA CARCAMO RN at: 10/25/2024 22:47:45 by:NANCY Chloride 100 98 - 110 mmol/L 10/25/2024 10:47 PM EDT [facility] CO2 20(L) 21 - 33 mmol/L 10/25/2024 10:47 PM EDT [facility] Anion Gap 17(H) 3 - 16 mmol/L 10/25/2024 10:47 PM EDT [facility] BUN 74(H) 7 - 25 mg/dL 10/25/2024 10:47 PM EDT [facility] Creatinine 3.87(H) 0.60 - 1.30 mg/dL 10/25/2024 10:47 PM EDT [facility] Glucose 114(H) 70 - 100 mg/dL 10/25/2024 10:47 PM EDT [facility] Calcium 9.3 8.6 - 10.3 mg/dL 10/25/2024 10:47 PM EDT [facility] Phosphorus 5.9(H) 2.1 - 4.7 mg/dL 10/25/2024 10:47 PM EDT [facility] Albumin 3.5 3.5 - 5.7 g/dL 10/25/2024 10:47 PM EDT [facility] Osmolality, Calculated 307(H) 278 - 305 mOsm/kg 10/25/2024 10:47 PM EDT [facility] EGFR 19 10/25/2024 10:47 PM EDT [facility] Comment:As of [...] ORDERABLES F inal Result Performing Organization Address City/[facility]/ZIP Co de Phone Number [facility] [address] [facility]. [address] * (ABNORMAL) APTT, NO ANTICOAGULANT (10/25/2024 10:17 PM EDT) aPTT 41.7(H) 25.5 - 35.0 seconds 10/25/2024 10:36 PM EDT [facility] Plasma 10/25/2024 10:1 7 PM EDT 10/25/2024 10:17 PM EDT Leandra Og MD LAB BLOOD ORDERABLES F inal Result Performing Organization Address City/[facility]/ZIP Co de Phone Number [facility] [address] [facility]. [address] * (ABNORMAL) Protime-INR (10/25/2024 10:17 PM EDT) Protime 21.7(H) 12.1 - 15.1 seconds 10/25/2024 10:35 PM EDT [facility] INR 1.8(H) 0.9 - 1.1 10/25/2024 10:35 PM EDT [facility] Comment: RECOMMENDED THERAPEUTIC RANGES USING INR : Stable oral anticoagulant therapy: 2.0 - 3.0 Mechanical prosthetic heart valve: 2.5 - 3.5 Recurrent acute myocardial infarction: 2.5 - 3.5 Plasma 10/25/2024 10:1 7 PM EDT 10/25/2024 10:17 PM EDT us Leandra Og MD LAB BLOOD ORDERABLES F inal Result [facility] [address] [place], [place] [address] * (ABNORMAL) Differential (10/25/2024 10:17 PM EDT) Differential Comments See Note 10/25/2024 10:54 PM EDT [facility] Comment: _Platelets Appear Decreased _Platelet Morphology Normal Scan Result PERFORMED 10/25/2024 10:54 PM EDT [facility] Neutrophils Relative 79.8 40.0 - 80.0 % 10/25/2024 10:54 PM EDT [facility] Lymphocytes Relative 9.6(L) 15.0 - 45.0 % 10/25/2024 10:54 PM EDT [facility] Monocytes Relative 8.9 0.0 - 12.0 % 10/25/2024 10:54 PM EDT [facility] Eosinophils Relative 1.3 0.0 - 8.0 % 10/25/2024 10:54 PM EDT [facility] Basophils Relative 0.4 0.0 - 1.0 % 10/25/2024 10:54 PM EDT [facility] nRBC 0 0 - 0 /100 WBC 10/25/2024 10:54 PM EDT [facility] Neutrophils Absolute 4,948 1,520 - 8,640 /uL 10/25/2024 10:54 PM EDT [facility] Lymphocytes Absolute 595 570 - 4,860 /uL 10/25/2024 10:54 PM EDT [facility] Monocytes Absolute 552 0 - 1,296 /uL 10/25/2024 10:54 PM EDT [facility] Eosinophils Absolute 81 0 - 864 /uL 10/25/2024 10:54 PM EDT [facility] Basophils Absolute 25 0 - 108 /uL 10/25/2024 10:54 PM EDT [facility] PLT Morphology Platelet morphology appears normal 10/25/2024 10:54 PM EDT [facility] Whole Blood 10/25/2024 10:1 7 PM EDT 10/25/2024 10:17 PM EDT us Leandra Og MD LAB BLOOD ORDERABLES F inal Result [facility] [address] [place] [address], [facility] * (ABNORMAL) CBC (10/25/2024 10:17 PM EDT) WBC 6.2 3.8 - 10.8 10E3/uL 10/25/2024 10:54 PM EDT [facility] RBC 2.40(L) 4.20 - 5.80 10E6/uL 10/25/2024 10:54 PM EDT [facility] Hemoglobin 8.3(L) 13.2 - 17.1 g/dL 10/25/2024 10:54 PM EDT [facility] Hematocrit 23.7(L) 38.5 - 50.0 % 10/25/2024 10:54 PM EDT [facility] MCV 98.9 80.0 - 100.0 fL 10/25/2024 10:54 PM EDT [facility] MCH 34.6(H) 27.0 - 33.0 pg 10/25/2024 10:54 PM EDT [facility] MCHC 35.0 32.0 - 36.0 g/dL 10/25/2024 10:54 PM EDT [facility] RDW 17.8(H) 11.0 - 15.0 % 10/25/2024 10:54 PM EDT [facility] Platelets 56(L) 140 - 400 10E3/uL 10/25/2024 10:54 PM EDT [facility] Comment: Specimen checked for clots. None detected. Slide Reviewed for PLT Clumps. None Seen. Platelet Estimate Decreased 10/25/2024 10:54 PM EDT [facility] MPV 8.1 7.5 - 11.5 fL 10/25/2024 10:54 PM EDT [facility] Whole Blood 10/25/2024 10:1 7 PM EDT 10/25/2024 10:17 PM EDT [facility] - 10/25/2024 10:54 PM EDT Peripheral blood smear was scanned per review criteria approved by the laboratory medical program specialist. us Leandra Og MD LAB BLOOD ORDERABLES F inal Result Performing Organization Address [facility] de Phone Number [facility] [address] [place] [address] * Donor Specific Antibody (DSA) (10/25/2024 10:00 PM EDT) Pathologist [facility] AntiDonor Antibodies The request and specimen(s) for this test have been received and transported to the [facility] at [address] [place] [address]. The [facility] will report results directly to the client. 10/25/2024 10:20 PM EDT [facility] Comment:Testing performed by [facility], [address] [place] [address]. The [facility] report has been forwarded to the appropriate ordering location. Please refer to this report for patient results. Serum 10/25/2024 10:0 0 PM EDT 10/25/2024 10:20 PM EDT Leandra Og MD LAB BLOOD ORDERABLES F inal Result Performing Organization Address [facility] Co de Phone Number [facility] [address] [place] [address] * (ABNORMAL) Venous Blood Gas, Line/Syringe (10/25/2024 10:00 PM EDT) PH-Line Draw 7.38 7.32 - 7.42 10/25/2024 10:08 PM EDT [facility] PCO2-Line Draw 33(L) 41 - 51 mm Hg 10/25/2024 10:08 PM EDT [facility] PO2-Line Draw 33 25 - 40 mm Hg 10/25/2024 10:08 PM EDT [facility] HCO3-Line Draw 20(L) 24 - 28 mmol/L 10/25/2024 10:08 PM EDT [facility] CO2 Content-Line Draw 21(L) 25 - 29 mmol/L 10/25/2024 10:08 PM EDT [facility] Base Excess-Line Draw -5.0(L) -2.0 - 3.0 mmol/L 10/25/2024 10:08 PM EDT [facility] %HBO2-Line Draw 53.8 40.0 - 70.0 % 10/25/2024 10:08 PM EDT [facility] Carboxyhgb-Ludivina e Draw 1.9 % 10/25/2024 10:08 PM EDT [facility] Comment: CARBOXYHEMOGLOBIN (CO) REFERENCE RANGES: Non-Smokers: <2 % Smokers: <8 % TOXIC: >20 % Methemoglobin- Line Draw 0.2 0.0 - 1.5 % 10/25/2024 10:08 PM EDT [facility] Reduced Hemoglobin-Ludivina e Draw 44.1(H) 0.0 - 5.0 % 10/25/2024 10:08 PM EDT [facility] Venous, Line Draw 10/25/2024 10:00 PM EDT 10/25/2024 10:04 PM EDT us Leandra Og MD LAB BLOOD ORDERABLES F inal Result [facility] [address] * (ABNORMAL) POC Glucose Monitoring Device (10/25/2024 9:56 PM EDT) POC Glucose Monitoring Device 103(H) 70 - 100 mg/dL 10/25/2024 9:58 PM EDT [facility] Blood 10/25/2024 9:56 PM EDT 10/25/2024 9:57 PM EDT us Harvey Domínguez III, MD POINT OF CARE TEST ORDERABLES Final Result [facility] [address] * ECG 12 lead (MUSE) (10/25/2024 9:34 PM EDT) 10/25/2024 9:34 PM EDT Narrative MUSE - 10/27/2024 10:08 AM EDT Ventricular Rate: 97 BPM Atrial Rate: 86 BPM QRS Duration: 106 ms QT: 532 ms QTc: 675 ms P Levant: 38 degrees R Levant: -29 degrees T Levant: 32 degrees Diagnosis Line: Critical Test Result: Long QTc , AV Block ^ SINUS RHYTHM WITH PREMATURE VENTRICULAR COMPLEXES ^ PROLONGED QT ^ NONSPECIFIC ST AND T WAVE CHANGES ^ ABNORMAL ECG ^ ^ Confirmed by MD HA, ERICK ([id number]) on 10/27/2024 10:08:26 AM Leandra Og MD ECG ORDERABLES Final Result Performing Organization Address [facility] Co de Phone Number MUSE * Hepatitis C RNA, Quant Reflex to Genotyp (10/25/2024 8:18 PM EDT) Pathologist [facility] International Units Not Detected IU/mL 10/27/2024 11:03 AM EDT [facility] Comment:Test methodology for HCV RNA quantification is an FDA-approved nucleic acid amplification assay. The Lower Limit of Quantitation (LLOQ) is 15 IU/mL. The linear range of the assay is 15-100,000,000 IU/mL. The Limit of Detection (LoD) is 12.0 IU/mL for EDTA plasma. The reference range is Not Detected. IU log10 See Note log 10 IU/mL 10/27/2024 11:03 AM EDT [facility] Comment:HCV RNA not detected . Plasma 10/25/2024 8:18 PM EDT 10/25/2024 10:27 PM EDT Leandra Og MD LAB BLOOD ORDERABLES F inal Result [facility] [address] [place] [address], [facility] * Urinalysis w/Rfl to Microscopic (10/25/2024 8:18 PM EDT) Color, UA Yellow Yellow,Straw 10/25/2024 10:38 PM EDT [facility] Clarity, UA Clear Clear 10/25/2024 10:38 PM EDT [facility] Specific Stanley, UA 1.010 1.005 - 1.035 10/25/2024 10:38 PM EDT [facility] pH, UA 6.0 5.0 - 8.0 10/25/2024 10:38 PM EDT [facility] Protein, UA Negative Negative mg/dL 10/25/2024 10:38 PM EDT [facility] Glucose, UA Negative Negative mg/dL 10/25/2024 10:38 PM EDT [facility] Ketones, UA Negative Negative mg/dL 10/25/2024 10:38 PM EDT [facility] Bilirubin, UA Negative Negative 10/25/2024 10:38 PM EDT [facility] Blood, UA Negative Negative 10/25/2024 10:38 PM EDT [facility] Nitrite, UA Negative Negative 10/25/2024 10:38 PM EDT [facility] Urobilinogen, UA <2.0 0.2 - 1.9 mg/dL 10/25/2024 10:38 PM EDT [facility] Leukocyte Esterase, UA Negative Negative 10/25/2024 10:38 PM EDT [facility] Urine 10/25/2024 8:18 PM EDT 10/25/2024 10:35 PM EDT Narrative [facility] - 10/25/2024 10:38 PM EDT Microscopic testing is not performed when the dipstick is negative for blood, leukocyte, protein and nitrite. us Leandra Og MD URINE ORDERABLES Final Result [facility] [address] [id number], [facility] * Toxoplasma gondii antibody, IgG (10/25/2024 8:18 PM EDT) Toxoplasma Gondii IgG <3.0 0.0 - 7.1 IU/mL 10/27/2024 7:55 AM EDT [facility] Comment: Negative <7.2 Equivocal 7.2 - 8.7 Positive >8.7 Serum 10/25/2024 8:18 PM EDT 10/27/2024 8:06 AM EDT [facility] - 10/27/2024 8:06 AM EDT PERFORMED AT: [facility] [id number] TITLE I PARAPROFESSIONAL: Bassam Khalil, PhD PHONE: [phone] Leandra Og MD LAB BLOOD ORDERABLES F inal Result [facility] [address] [place] [address]. [address] * Antibody Screen (10/25/2024 7:46 PM EDT) Antibody Screen Negative 10/25/2024 10:41 PM EDT [facility] Blood 10/25/2024 7:46 PM EDT 10/25/2024 9:54 PM EDT Narrative [facility] - 10/25/2024 10:44 PM EDT Testing performed by [facility] Ben Blake MD BLOOD BANK TEST ORDERABLES Fi nal Result Performing Organization Address [facility] Co de Phone Number [facility] [address] [place] [address]. [address] * ABO/Rh (10/25/2024 7:46 PM EDT) ABO Grouping O 10/25/2024 10:23 PM EDT [facility] Rh Type Positive 10/25/2024 10:23 PM EDT [facility] Blood 10/25/2024 7:46 PM EDT 10/25/2024 9:54 PM EDT Ben Blake MD BLOOD BANK TEST ORDERABLES Fi nal Result Performing Organization Address City/[facility]/ZIP Co de Phone Number [facility] [address] [place] [address] * (ABNORMAL) TEG-Standard Global Hemostasis (Rapid TEG with Heparin Effect, Contains a Baseline TEG) (10/25/2024 7:46 PM EDT) Citrated Kaolin Reaction Time (TEGHEPARINASE) 8.4 4.6 - 9.1 minutes 10/25/2024 10:49 PM EDT [facility] Citrated Rapid Teg Maximum Amplitude (TEGHEPARINASE) <40.0(L) 52.0 - 70.0 mm 10/25/2024 10:49 PM EDT [facility] Citrated Functional Fibrinogen Maximum Amplitude (TEGHEPARINASE) 6.7(L) 15.0 - 32.0 mm 10/25/2024 10:49 PM EDT [facility] Citrated Kaolin W/Heparinase Reaction Time (TEGHEPARINASE) 8.1 4.3 - 8.3 minutes 10/25/2024 10:49 PM EDT [facility] Citrated Kaolin K-Time (TEGHEPARINASE) 2.5(A) 0.8 - 2.1 minutes 10/25/2024 10:49 PM EDT [facility] Citrated Kaolin Angle (TEGHEPARINASE) 65.7(A) 63.0 - 78.0 degrees 10/25/2024 10:49 PM EDT [facility] Citrated Kaolin Maximum Amplitude (TEGHEPARINASE) <40.0(L) 52.0 - 69.0 mm 10/25/2024 10:49 PM EDT [facility] Citrated Functional Fibrinogen- Fibrinogen Level (TEGHEPARINASE) 159.5(L) 278.0 - 581.0 mg/dL 10/25/2024 10:49 PM EDT [facility] Whole Blood (Citrate) 10/25/2024 7:46 PM EDT 10/25/2024 10:15 PM EDT us Ben Blake MD LAB BLOOD ORDERABLES Final Re sult [facility] [address] [place] [address], [facility] documented in this encounter Visit Diagnoses Diagnosis Acute kidney injury superimposed on CKD ([facility]-HCC)- Primary Prophylactic antibiotic Encounter for long-term (current) use of antibiotics Prolonged QT interval Nonspecific abnormal electrocardiogram (ECG) (EKG) Immunosuppression (CMS-HCC) Abdominal pain, unspecified abdominal location documented in [...] use: NPO requiring additional MM analgesia New Bag 10/28/2024 3:35 PM EDT 1,000 m g [...] min, First dose (after last reorder) on 11/01/24 at 0900, For 3 doses, In Emergencies, [...] New Bag 10/27/2024 5:15 AM EDT New Bag 10/27/2024 1:45 AM EDT 250 mLs 100 mL/hr Rate/Dose Verify 10/26/2024 10:16 PM EDT 83.3 m L/hr [...] Intravenous, Every 3 hours, First dose on Tish 10/30/24 at 1000, For 2 doses, In Emergencies, may administer as rapidly as needed to improve clinical status., Select indication for use: Hepatic Resection/Liver Transplantation, at 83.3 mL/hr New Bag 10/30/2024 5:45 PM EDT 250 mLs 83.3 mL/hr New Bag 10/30/2024 12:14 PM EDT 250 mLs 83.3 mL/hr AMPicillin 1 g in sodium chloride 0.9% 100 mL IVPB (Emcs9Sdy) 1 g, Intravenous, at 200 mL/hr, Every 6 hours scheduled (4 times per day), First dose on Sun10/26/24 at 0630, For 2 days, Dosage may need to be adjusted for renal dysfunction. Full dose is 1g IV q6h Use [id number] Adapter - Mix Thoroughly Before Administration New Bag 10/28/2024 1:58 AM EDT 1 g 200 [...] Once underlying shock sufficiently improved, defined as cve-[id number]-MX-presso r requirement ? 0.2 mcg/kg/min (norepinephrine equivalent) [...] Eyes, 2 times daily, First dose on Sun10/26/24 at 1230 Given 10/31/2024 10:29 AM EDT Given 10/27/2024 8:46 PM EDT Given 10/27/2024 8:54 AM EDT famotidine (PF) (PEPCID) injection 20 mg 20 mg, Intravenous, Every 12 hours scheduled (2 times per day), First dose on Sun10/26/24 at 0900 Given 10/27/2024 9:10 AM EDT 20 mg Given 10/26/2024 7:59 PM EDT 20 mg Given 10/26/2024 9:20 AM EDT 20 mg FentaNYL (SUBLIMAZE) 2500 mcg (10 mcg/mL) in NSS 250 mL IV infusion Intravenous, at 0-20 mL/hr, Continuous, Starting on Sun10/26/24 at 0630, If the patient is pharmacologically [...] 20 mg, Oral, Daily, First dose on Tu10/28/24 at 0930 Given 11/02/2024 11:42 AM EDT [...] 40 mg 40 mg, Intravenous, Once, On 11/02/24 at 0900, For 1 dose, Give doses [...] (3 times per day), First dose on 10/25/24 at 2030 Given 10/25/2024 10:12 PM EDT 5,000 Units Right Anterior Thigh heparin (porcine) injection 5,000 Units 5,000 Units, Subcutaneous, Every 8 hours scheduled (3 times per day), First dose on 10/26/24 at 0600 Given 11/02/2024 5:43 AM EDT [...] (CPOT 6-8), for breakthrough pain, Starting on Tish 10/30/24 at 1143, For 1 day Given 10/30/2024 [...] 6:48 PM EDT 1 mg HYDROmorphone (DILAUDID) HEAT AND FROST INSULATOR 6 mg/30 mL syringe *Standard Conc* Intravenous, Continuous, Starting on Sun10/27/24 at 1730, HIGH ALERT MEDICATION New Syringe/Cartridge 10/28/2024 3:59 AM EDT New Syringe/Cartridge 10/27/2024 7:09 PM EDT HYDROmorphone (DILAUDID) HEAT AND FROST INSULATOR 6 mg/30 mL syringe *Standard Conc* Intravenous, [...] On 11/01/24 at 0830, For 1 dose New Bag [...] in sodium chloride 0.9 % 100 mL [id number] IVPB 50 mg, Intravenous, at 100 mL/hr, Every 24 hours, First dose on Sun10/27/24 at 1400, PROTECT FROM LIGHT FLUSH LINE w/NSS PRIOR TO ADMINISTRATION Use [id number] Adapter - Mix Thoroughly Before Administration Rate/Dose [...] 25 mg 25 mg, Oral, Once, On 11/02/24 at 0900, For 1 dose, POD #7 [...] Intravenous, at 0-14.7 mL/hr, Continuous, Starting on 10/26/24 at 0630, Do not administer through the same I.V. catheter with blood or plasma. Tubing and any unused portions of propofol vials should be discarded after 12 hours. If patient is paralyzed: Do not titrate - follow policy [id number]. Start infusion if unable to maintain goal [...] Sun10/30/24 at 1900, LEVEL 2 HAZARDOUS MEDICATION Given [...] Vandana Vilchis RN)1255 (Given - Provider: Paulette Flannery RN)2056 (Given - Provider: Yvonne Gale, ЮЛИЯ) 0620 (Given - Provider: Yvonne Gale, ЮЛИЯ)1017 (Given - Provider: Paulette Flannery, ЮЛИЯ)2119 (Given - Provider: Yvonne Gale, ЮЛИЯ) 0543 (Given - Provider: Yvonne Gale, RN)1219 (Given - Provider: Paulette Flannery, ЮЛИЯ) albumin human 25% (COMPLETED) 50 mL, Intravenous, Every 30 min, First dose on Sun10/31/24 at 2100, For 2 doses, In Emergencies, may administer as rapidly as needed to improve clinical status., Select indication for use: Hepatic Resection/Liver Transplantation, at 100 mL/hr 2053 (New Bag - Provider: Yvonne Gale RN)214 (New Bag - Provider: Yvonne Gale RN) albumin human 25% (COMPLETED) 50 mL, Intravenous, [...] Flannery, ЮЛИЯ)1155 (New Bag - Provider: Paulette Flannery RN) albumin human 25% (COMPLETED) 50 mL, Intravenous, [...] Eyes, 2 times daily, First dose on Sun10/26/24 at 1230 1029 (Given - Provider: Paulette Flannery RN)2057 (Not Given - Provider: Yvonne Gale RN - Reason: Patient/family refused) 1029 (Not Given - Provider: Paulette Flannery RN - Reason: Patient/family refused)212 (Not Given - Provider: Yvonne Gale RN - Reason: Patient/family refused) 1147 (Not Given - Provider: Paulette Flannery RN - Reason: Patient/family refused) fluconazole (DIFLUCAN) tablet 200 mg 200 mg, Oral, Daily, First dose on Sun10/30/24 at 1000, DO NOT CRUSH OR CHEW. 0852 (Given - Provider: Paulette Flannery RN) 1018 (Given - Provider: Paulette Flannery RN) 1141 (Given - Provider: Paulette Flannery RN) FLUoxetine (PROZAC) capsule 20 mg 20 mg, Oral, Daily, First dose on Sun10/28/24 at 0930 0852 (Given - Provider: Paulette Flannery RN) 1018 (Given - Provider: Paulette Flannery, ЮЛИЯ) 1142 (Given - Provider: Paulette Flannery RN) furosemide (LASIX) injection 40 mg (COMPLETED) 40 mg, Intravenous, Once, On 11/01/24 at 1000, For 1 dose, Give doses of 100mg or less over 5 minutes. For doses over 100mg, give at rate of up to 20mg/min. 1022 (Given - Provider: Paulette Flannery RN) furosemide (LASIX) injection 40 mg (COMPLETED) 40 mg, Intravenous, Once, On Sun11/01/24 at 1600, For 1 dose, Give doses of 100mg or less over 5 minutes. For doses over 100mg, give at rate of up to 20mg/min. 1714 (Given - Provider: Paulette Flannery RN) furosemide (LASIX) injection 40 mg (COMPLETED) 40 mg, Intravenous, Once, On 11/02/24 at 0900, For 1 dose, Give doses [...] Paulette Flannery RN)2120 (Given - Provider: Yvonne Gale, ЮЛИЯ) 1149 (Given - Provider: Paulette Flannery RN)1531 (Given - Provider: Meka Montalvo, ЮЛИЯ) heparin (porcine) injection 5,000 Units 5,000 Units, Subcutaneous, Every 8 hours scheduled (3 times per day), First dose on Sun10/26/24 at 0600 0614 (Given - Provider: Vandana Vilchis RN)1255 (Given - Provider: Paulette Flannery RN)2056 (Given - Provider: Yvonne Gale, ЮЛИЯ) 0614 (Given - Provider: Yvonne Gale, ЮЛИЯ)1345 (Given - Provider: Paulette Flannery RN)2119 (Given - Provider: Yvonne Gale RN) 0543 (Given - Provider: Yvonne Gale RN)1527 (Not Given - Provider: Meka Montalvo RN - Reason: Patient/family refused) insulin lispro (humaLOG/ADMELOG) injection 0-10 Units(Linked Group 1) 0-10 Units, Subcutaneous, At Bedtime (2099), First dose on Sun10/28/24 at 2100, HIGH [...] Order parameters not met)1718 (Given - Provider: Pualette Flannery RN) 0944 (Not Given - Provider: [...] 10 mL 10 mL, Subcutaneous, Once, On Sun11/02/24 at 0800, For 1 dose, For procedure [...] Yvonne Gale RN - Comment: given at 1843) 1018 (Given - Provider: Paulette Flannery RN)1344 (Given - Provider: Paulette Flannery RN)1714 (Given - Provider: Paulette Flannery RN)2118 (Given [...] 1141 (Given - Provider: Paulette Flannery RN) pantoprazole (PROTONIX) EC tablet 40 mg 40 mg, Oral, Daily6, First dose on Sun10/28/24 at 0930, Do Not Crush 0614 (Given - Provider: Vandana Vilchis RN) 0614 (Given - Provider: Yvonne Gale RN) 0543 (Given - Provider: Yvonne Gale RN) polyethylene glycol (MIRALAX) packet 17 g 17 g, Oral, 2 times daily, First dose on Sun10/29/24 at 1400, On hold since 11/02/2024 at 0634 until manually unheld 0852 (Given - Provider: Paulette Flannery RN)2057 (Not Given - Provider: Yvonne Gale RN - Reason: Patient/family refused) 101 (Given - Provider: Paulette Flannery RN)2121 (Not [...] CRUSH or CHEW; TABLET(S) MAY BE SPLIT 1018 (Given - Provider: Paulette Flannery RN) potassium [...] CRUSH or CHEW; TABLET(S) MAY BE SPLIT 190 (Given - Provider: Paulette Flannery RN) predniSONE [...] HAZARDOUS MEDICATION 1843 (Given - Provider: Vivi Newton, ЮЛИЯ) 0649 (Given - Provider: Yvonne Gale, ЮЛИЯ) tacrolimus (PROGRAF) capsule 5 mg (CANCELED) 5 [...] HAZARDOUS MEDICATION 1758 (Given - Provider: Paulette Flannery, ЮЛИЯ) valGANciclovir (VALCYTE) tablet 450 mg 450 mg, [...] at 0920 1031 (Given - Provider: Paulette Flannery, ЮЛИЯ)1434 (Given - Provider: Paulette Flannery, ЮЛИЯ)1844 (Given - Provider: Vivi Newton RN)2232 (Given - Provider: Yvonne Gale, ЮЛИЯ) 0215 (Given - Provider: Yvonne Gale, ЮЛИЯ)0615 (Given - Provider: Yvonne Gale, ЮЛИЯ)1153 (Given - Provider: Paulette Flannery RN)1714 (Given - Provider: Paulette Flannery RN)2120 (Given - Provider: Yvonne Gale, ЮЛИЯ) 0123 (Given - Provider: Yvonne Gale RN)0543 [...] documented as of this encounter Care Teams Electrotype Servicer Relationship Specialty Start Date End Date Enedina Mcguire NP [address] [place] [address] PCP - General Internal Medicine 10/05/24 Alicia Pantoja, RN Txp Post Coordinator Transplant Hepatology 10/28/24 documented as of this encounter
--- OUTSIDE RECORDS SUMMARY | 2024-11-04 08:40 | XMS_ITS | Encounter Summary ---
Author Organization [facility] Address [address] [place] [address] Care Team Providers Care Dairy Farm Operator Name Role Phone Enedina Mcguire NP Primary Care Provider + [phone] Maureen Pantoja RN Unavailable Unavail able Source [...] release of HIV test results or diagnoses. [id number] Reason for Visit * Reason Comments Liver Transplant Follow-up Encounter Details Date Type Department Care Team (Late st Contact Info) Description 11/04/2024 8:40 AM EDT Office Visit [facility] Liver Transplant at [place] [id number] [facility] [address] [place] [address] Cosmo Pacheco MD [address] [place] [address] 3200 [place] [address] Liver transplant recipient (CMS-HCC) (Primary [...] the past 12 months has th e [employer], [employer], oil, or water company threatened to shut [...] Nutrition: patient continues close f/u w/ transplant air support control officer. - Bone health: Vit D level to be drawn ~POD#90. - Labs: Labs (CBC w/ diff, renal panel, liver panel, tacro level) twice a week. Lipid panel, [id number] Vit D level to be drawn at [...] management for this patient. Cosmo Pacheco MD Painter Aircraft of Transplant Surgery [phone] (m) [1] Allergies Allergen Reactions Adhesive Itching [...] encounter Visit Diagnoses Diagnosis Liver transplant recipient ([facility])- Primary Alcoholic cirrhosis of liver with ascites ([facility]) Kidney transplant recipient Acute kidney injury superimposed on CKD ([facility]) CKD (chronic kidney disease) stage 4, GFR 15-29 ml/min ([facility]) Chronic kidney disease, Stage IV (severe) Immunosuppressive management encounter following liver transplant ([facility]) Abdominal pain, unspecified abdominal location documented in this encounter Additional Health Concerns Infection Onset Date Last Indicated Resolved Time 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
--- OUTSIDE RECORDS SUMMARY | 2024-11-04 10:10 | XMS_ITS | Encounter Summary ---
Author Organization [facility] Address [facility] [place] [address] Care Team Providers Care District Plant Engineer Name Role Phone Enedina Mcguire NP Primary Care Provider + [phone] Maureen Pantoja RN Unavailable Unavail able Source [...] release of HIV test results or diagnoses. [id number] Reason for Visit * Reason Comments Kidney Transplant Follow-up Encounter Details Date Type Department Care Team (Late st Contact Info) Description 11/04/2024 10:10 AM EDT Office Visit [facility] Liver Transplant at [facility] [address] [facility] [address] [place] [address] Leisa Juarez MD [facility] 2nd [place] [address] Kidney transplant recipient (Primary Dx); Diarrhea of presumed infectious origin; Hypomagnesemia; Hypervolemia, unspecified hypervolemia type; Liver transplant recipient (CMS-HCC); Other hypervolemia; Hyperparathyroidism (CMS-HCC); Nausea and vomiting, unspecified vomiting type Social History Tobacco Use Types Packs/Day Years [...] the past 12 months has th e [email or web address], [employer], oil, or water [employer] threatened to shut off services in your [...] Time Taken Comments Blood Pressure 151/84 11/04/2024 8:52 AM EDT Pulse 87 11/04/2024 8:52 AM EDT Temperature 36.6 C (97.8 F) 11/04/2024 8:52 AM EDT Respiratory Rate 16 11/04/2024 8:52 AM EDT Oxygen Saturation 100% 11/04/2024 8:52 AM EDT Inhaled Oxygen Concentration 100% 11/04/2024 8 :52 AM EDT Weight 108.9 kg (240 lb 1.6 oz) 11/04/2024 8:52 AM EDT Height - - Body Mass Index 29.23 10/26/2024 11:26 AM EDT documented in this encounter Progress Notes * Leisa Juarez MD - 11/04/2024 10:10 AM EDT Images from the original note were not included. Name: Julien Anderson Date of : 1985 (39 y.o.) Date of Service: 11/04/2024 Subjective History of Present Illness: BARBRA Anderson is a 39 y.o. 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 Now s/p SLK 10/26-. Date of Transplant: 10/26/2024 Type of Transplant: Donation after Circulatory (Other - Non-Biological) Cause of End Stage Renal Disease: Hepatorenal Syndrome CPRA: KDPI: 22 Ag Mismatches: CMV Recipient Status: Lab Results Component Value Date CMVIGG Positive (A) 10/07/2024 EBV Recipient Status: Lab Results Component Value Date EBVVCAIGG Positive (A) 10/27/2024 CMV IGG Donor Status: Negative EBV IGG Donor Status: Positive Donor's PHS High Risk Status: Yes Chief Complaint: Follow up after SLK. POD #8/9 This is patient's first follow-up visit since discharge. Discharged Sunday. Feeling exhausted. BP at home: 130/80 Drinking: ~90 oz/day Weights: Going down, 8 lbs since discharge. Review of Systems Constitutional: Negative for chills and fever. Respiratory: Negative for chest tightness and shortness of breath. Cardiovascular: Positive for leg swelling. Gastrointestinal: Positive for diarrhea (x3-4/day). Negative for nausea and vomiting. Genitourinary: Negative for difficulty urinating and dysuria. Neurological: Positive for dizziness (With changes in position). All other systems reviewed and are negative. Histories: Past Medical History: Past Medical History: Diagnosis Date Alcoholic cirrhosis of liver (CMS-HCC) Esophageal varices (CMS-HCC) Hepatorenal syndrome (CMS-HCC) Hypertension Other hyperlipidemia 07/26/2024 Renal cell carcinoma (CMS-HCC) Thrombocytopenia (CMS-HCC) Thyroid disease Surgical History: Past Surgical History: Procedure Laterality Date ESOPHAGOGASTRODUODENOSCOPY [...] packing; Surgeon: Harvey Domínguez III, MD; Location: [facility]; Service: Transplant; Laterality: N/A; Family History: No family history on file. Social History: Social History Socioeconomic History Marital [...] Resource Strain: Low Risk (07/09/2024) Received from [facility] Overall Financial Resource Strain (CARDIA) Difficulty of Paying Living Expenses: Not hard at all Food Insecurity: No Food Insecurity (10/29/2024) Hunger Vital Sign Worried About Running Out of Food in the Last Year: Never true Ran Out of Food in the Last Year: Never true Transportation Needs: No Transportation Needs (10/29/2024) PRAPARE - Transportation Lack of Transportation (Medical): No Lack of Transportation (Non-Medical): No Physical Activity: Unknown (07/14/2024) Received from [facility] Exercise Vital Sign Days of Exercise per Week: Patient unable to answer Minutes of Exercise per Session: Not on file Stress: Patient Unable To Answer (07/14/2024) Received from [facility] [employer] - Occupational Stress Questionnaire Feeling of Stress : Patient unable to answer Social Connections: Patient Unable To Answer (07/14/2024) Received from [facility] Social Connection and Isolation Panel [...] Sexually Abused: No Housing Stability: Low Risk (10/29/2024) Housing Stability Vital Sign Unable to Pay for Housing in the Last Year: No Number of Times Moved in the Last Year: 0 Homeless in the Last Year: No Medications: Current Outpatient Medications Medication Sig acetaminophen (TYLENOL) 325 MG tablet Take 3 tablets (975 mg total) by mouth every 8 hours. alcohol swabs PadM Use as instructed. apixaban (ELIQUIS) 2.5 mg Tab Take 1 tablet (2.5 mg total) by mouth 2 times a day for 24 days. Lastdose 11/26/24 blood sugar diagnostic (GLUCOSE BLOOD) Str Use to test blood sugar up to 4 times a day. blood-glucose meter (TRUE METRIX GLUCOSE METER) Mis Use to test blood sugar up to 4 times a day. ergocalciferol (ERGOCALCIFEROL) 1,250 mcg (50,000 unit) capsule Take 1 capsule (50,000 Units total)by mouth once a week. famotidine (PEPCID) 20 MG tablet Take 1 tablet (20 mg total) by mouth 2 times a day. fluconazole (DIFLUCAN) 200 MG tablet Take 1 tablet (200 mg total) by mouth daily for 24 days. Last day 11/26/24 FLUoxetine (PROZAC) 20 MG capsule Take 1 capsule (20 mg total) by mouth daily. gabapentin (NEURONTIN) 100 MG capsule Take 1 capsule (100 mg total) by mouth 3 times a day. HYDROmorphone (DILAUDID) 2 MG tablet Take 1 tablet (2 mg total) by mouth every 6 hours as needed for up to 7 days. insulin aspart, niacinamide, (FIASP FLEXTOUCH U-100 INSULIN) 100 unit/mL (3 mL) InPn Administer insulin with meals per sliding scale: Blood glucose 150-199 mg/dL =2 units, Blood glucose 200-249 mg/dL=4 units, Blood glucose 250-299 mg/dL =7 units, Blood glucose 300-349 mg/dL =10 units, Blood glucose greater than 349 mg/dL = 12 units lancets (ACCU-CHEK SOFTCLIX LANCETS) [facility] Use to test blood sugar up to 4 times a day. levothyroxine (SYNTHROID) 75 MCG tablet Take 1 tablet (75 mcg total) by mouth every morning before breakfast. linezolid (ZYVOX) 600 mg tablet Take 1 tablet (600 mg total) by mouth 2 times a day. loratadine (CLARITIN) 10 mg tablet Take 1 tablet (10 mg total) by mouth daily as needed for Allergies (itching). methocarbamoL (ROBAXIN) 500 MG tablet Take 2 tablets (1,000 mg total) by mouth 3 times a day. mycophenolate (CELLCEPT) 250 mg capsule Take 2 capsules (500 mg total) by mouth 2 times a day. naloxone (NARCAN) 4 mg/actuation Cougar Apply 1 spray in one nostril if needed. Call 911. May repeat dose in other nostril if no response in 3 minutes. NIFEdipine (PROCARDIA-XL) 30 MG (OSM) 24 hr tablet Take 1 tablet (30 mg total) by mouth daily. pen needle, diabetic 32 gauge x Ndle [...] bedtime as needed for Constipation. sodium bicarbonate 650 MG tablet Take 2 tablets (1,300 mg total) by mouth 2 times a day. sulfamethoxazole-trimethoprim (BACTRIM) 400-80 mg per tablet Take 1 tablet by mouth daily. tacrolimus (PROGRAF) 1 MG capsule Take 6 capsules (6 mg total) by mouth 2 times a day. Use as directed torsemide (DEMADEX) 20 MG tablet Take 1 tablet (20 mg total) by mouth daily. valGANciclovir (VALCYTE) 450 mg tablet Take 1 tablet (450 mg total) by mouth daily. No current facility-administered medications for this visit. Allergies: Adhesive and Duloxetine Tacro/CSA Target: Latest Ref Rng & Units 10/29/2024 10/30/2024 10/31/2024 11/01/2024 11/02/2024 [place]ro/Creatinine Level Creatinine (USE PT. THRESHOLDS) 0.60 - 1.30 mg/dL 1.93 1.96 1.75 1.22 1.30 1.08 Multiple values from one day are sorted in reverse-chronological order Currently Enrolled Research Studies: Objective Physical Examination: Blood pressure 151/84, pulse 87, temperature 97.8 ??F (36.6 ??C), temperature source Oral, resp. rate 16, weight (!) 240 lb 1.6 oz (108.9 kg), SpO2 100%. Physical Exam Vitals reviewed. Constitutional: General: He is not in acute distress. HENT: Head: Normocephalic and atraumatic. Eyes: General: No scleral icterus. Cardiovascular: Rate and Rhythm: Normal rate and regular rhythm. Pulmonary: Effort: Pulmonary effort is normal. Breath sounds: Normal breath sounds. Abdominal: General: Bowel sounds are normal. Palpations: Abdomen is soft. Musculoskeletal: Right lower leg: Edema present. Left lower leg: Edema present. Skin: General: Skin is warm and dry. Neurological: Mental Status: He is alert. Review of Lab Results: Renal: Lab Results Component Value Date NA 140 11/02/2024 K 3.3 (L) 11/02/2024 CL 107 11/02/2024 CO2 25 11/02/2024 ANIONGAP 8 11/02/2024 BUN 31 (H) 11/02/2024 CREATININE 1.08 11/02/2024 GLUCOSE 150 (H) 11/02/2024 CALCIUM 7.8 (L) 11/02/2024 PHOS 2.0 (L) 11/02/2024 MG 1.3 (L) 11/02/2024 Hepatic: Lab Results Component Value Date ALKPHOS 126 (H) 11/02/2024 AST 30 11/02/2024 ALT 66 (H) 11/02/2024 ALBUMIN 3.2 (L) 11/02/2024 ALBUMIN 3.2 (L) 11/02/2024 LABPROT 6.3 09/16/2024 BILIDIRECT 0.81 (H) 11/02/2024 BILITOT 1.6 (H) 11/02/2024 BILIINDIRECT 0.79 11/02/2024 LIPASE 40 09/04/2024 Lipids: Lab Results Component Value Date CHOLTOT <25 10/07/2024 TRIG 30 10/07/2024 HDL 4 (L) 10/07/2024 LDL See Note 10/07/2024 CBC: Lab Results Component Value Date WBC 5.8 11/02/2024 RBC 3.12 (L) 11/02/2024 HGB 9.2 (L) 11/02/2024 HCT 27.5 (L) 11/02/2024 MCV 87.9 11/02/2024 MCH 29.5 11/02/2024 MCHC 33.5 11/02/2024 RDW 17.5 (H) 11/02/2024 MPV 7.9 11/02/2024 PLT 61 (L) 11/02/2024 Parathyroid: Lab Results Component Value Date PTH 36.0 10/25/2024 CVCN46O 7.1 (L) 10/08/2024 Hemoglobin A1C: Lab Results Component Value Date HGBA1C 5.0 10/27/2024 US Renal Transplant: Results for orders placed during the hospital encounter of 10/25/24 US RENAL TRANSPLANT Narrative EXAM: US RENAL TRANSPLANT INDICATION: Other - [...] renal hilar vasculature are within normal limits. Impression 1. Findings most compatible with small amount of gas within the transplant renal collecting system.Otherwise normal exam. Report Verified by: Declan Cerda MD at 10/31/2024 10:29 AM EDT Signed by: Declan Cerda MD on 10/31/2024 10:29 AM US RENAL TRANSPLANT Narrative EXAM: US RENAL TRANSPLANT INDICATION: Postoperative 0 liver transplant. COMPARISON: None TECHNIQUE: Grayscale imaging acquisition was performed of the transplanted kidney and urinary bladder with limited color and spectral (duplex) Doppler analysis of the renal vasculature. FINDINGS: Renal transplant is visualized in the right lower quadrant. Transplant kidney measures 10.1 x 5.4 x4.9 cm in size. There is no hydronephrosis. Trace perinephric edema but no fluid collections are identified. No masses or calculi are appreciated. Normal arterial and venous waveforms are demonstrated. Resistive indices within the renal parenchyma range from 0.68-0.86. The urinary bladder is collapsed with a Berkowitz balloon present.. Impression 1. Normal grayscale appearance of the renal transplant allograft. 2. Patent renal transplant vasculature and waveforms within normal limits. Report Verified by: Alberto Rodriguez MD at 10/27/2024 10:28 AM EDT Signed by: Alberto Rodriguez MD on 10/27/2024 10:28 AM Urine: Lab Results Component Value Date LABCREAU 87.40 10/06/2024 LABPROT 6.3 09/16/2024 Others: Lab Results Component Value Date IRON 128 10/25/2024 LABIRON SEE COMMENT 10/25/2024 FERRITIN 623.2 (H) 10/25/2024 LDH 102 (L) 10/08/2024 Assessment & Plan AlloGraft Function: S/p SLK 10/26- - OLT 10/26/24 - DDKT, washout, and bile duct reconstruction 10/27/24 cPRA 63 as of 10/15/24. DCD-NRP. KDPI 20. tCr 0.2. Kidney CIT 33:17 and WIT 27 min. Negative virtual and flow crossmatches. Cr today 1.08 UA: Trace protein, large blood, >100 RBC, rare bacteria, 3 hyaline casts IS: Steroid taper per protocol, MMF 500 mg BID, and tacrolimus FK goal: 10-12 per protocol FK level: Pending Prophylaxis: Relevant serologies: CMV D-/R+, EBV D+/R+, Toxo D-/R- Donor urine culture with 6K cfu/mL Burkholderia from Berkowitz sample. On linezolid fro 7 days. CMV ppx: Valcyte PJP ppx: Bactrim Fungal ppx: Fluconazole Hypertension: Nifedipine 30 mg daily Volume status: Torsemide 20 mg daily BK Screening: Per protocol Hematology: Counts stable 11/02/24, pending today. Mineral Bone Disease: Mag 1.0 Phos 1.9 Health Maintenance: Deferred at this time in setting of recent transplant PLAN - Renal function improving - IS per liver team - Continue torsemide 20 mg daily - Start Slow Mag 143 mg TID RTC: With next liver appt. Discussed with Dr. Juarez. YARELI ZARAGOZA CNP Attending Addendum : I saw and examined the patient 11/04/24 , and discussed the case with the SAWYER. I agree with the assessment and plan as outlined in the SAWYER's note except as noted below. Patient is followed for monitoring of drug toxicity for being on immunosuppression with tacrolimus trough level, complete blood count, and basic metabolic profile . 39 y.o. 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 DCD - NRP. KDPI 20. tCr 0.2. Kidney CIT 33:17 and WIT 27 min. Virtual and flow crossmatches negative. Excellent renal allograft function. DC weight 267 lb (11/01/24) > 240 lb today Also having a lot of diarrhea, watery, already went 3 times since AM. Plan : Check Stool studies, EPP, O/P, Cdiff. Monitor Daily weights, and report to coordinator over the next 2 days. Still has 2 + edema and Drain O/P. May have to Hold/decrease torsemide dose if he continues to lose weight this rapidly, especially inthe setting of diarrhea Rx Slo mag 2 tabs TID, starting now. Increase Phos in diet Linezolid x 7 days (for positive donor urine Cx <10.000 CFU of VRE) to end 11/09/24 RTC in 1 week documented in this encounter Plan of Treatment Scheduled Orders Name Type Priority Associated Diagnoses Orde r Schedule Urinalysis w/Rfl to Microscopic Lab Routine Kidney transplant recipient weekly for 12 Occurrences starting 11/03/2024 until 11/03/2025, 2 completed Protein / creatinine ratio, urine Lab Routine Kidney transplant recipient weekly for 12 Occurrences starting 11/03/2024 until 11/03/2025, 2 completed Post Kidney Transplant Urine Culture Microbiology Routine Kidney transplant recipient weekly for 12 Occurrences starting 11/03/2024 until 11/03/2025, 2 completed Magnesium Lab Routine Kidney transplant recipient weekly for 12 Occurrences starting 11/03/2024 until 05/18/2025, 3 completed documented as of this encounter Results * (ABNORMAL) Magnesium (11/25/2024 8:42 AM EDT) Magnesium 1.4(L) 1.5 - 2.5 mg/dL 11/25/2024 10:20 AM EDT [facility] Plasma 11/25/2024 8:42 AM EDT 11/25/2024 9:47 AM EDT Yareli Zaragoza [facility] BLOOD ORDERABLES Denisse l Result Performing Organization Address City/[facility]/ZIP Co de Phone Number [facility] [address] * (ABNORMAL) Magnesium (11/11/2024 9:13 AM EDT) Magnesium 1.2(L) 1.5 - 2.5 mg/dL 11/11/2024 10:51 AM EDT [facility] Plasma 11/11/2024 9:13 AM EDT 11/11/2024 10:19 AM EDT Yareli Zaragoza [facility] BLOOD ORDERABLES Denisse l Result [facility] [address] * (ABNORMAL) Post Kidney Transplant Urine Culture (11/11/2024 9:13 AM EDT) Culture Result Enterococcus faecium(A) [facility] Comment: <1,000 cfu/mL Identified by MALDI-TOF MS No Further Workup Midstream Urine URINE SPECIMEN / Unknown 11/11/2024 9:13 AM EDT 11/11/2024 10:17 AM EDT Yareli Zaragoza CNP MICROBIOLOGY - GENERAL OR DERABLES Final Result Performing Organization Address [facility] Co de Phone Number [facility] [address] [facility] * Protein / creatinine ratio, urine (11/11/2024 9:13 AM EDT) Creatinine, Urine 71.40 mg/dL 11/11/2024 10:38 AM EDT [facility] Comment:Reference range not established for this test. Total Protein, Ur 28 mg/dL 11/11/2024 10:38 AM EDT [facility] Comment:Reference range not established for this test. Prot/Creat Ratio, Ur 0.39 ratio 11/11/2024 10:38 AM EDT [facility] Urine 11/11/2024 9:13 AM EDT 11/11/2024 10:12 AM EDT us Yareli Zaraogza CNP URINE ORDERABLES Final Re sult Performing Organization Address [facility]/ZIP Co de Phone Number [facility] [address] [facility]. [address] * (ABNORMAL) Urinalysis w/Rfl to Microscopic (11/11/2024 9:13 AM EDT) Color, UA Straw Yellow,Straw 11/11/2024 10:36 AM EDT [facility] Clarity, UA Clear Clear 11/11/2024 10:36 AM EDT [facility] Specific Barre, UA 1.015 1.005 - 1.035 11/11/2024 10:36 AM EDT [facility] pH, UA 6.0 5.0 - 8.0 11/11/2024 10:36 AM EDT [facility] Protein, UA Negative Negative mg/dL 11/11/2024 10:36 AM EDT [facility] Glucose, UA Negative Negative mg/dL 11/11/2024 10:36 AM EDT [facility] Ketones, UA Negative Negative mg/dL 11/11/2024 10:36 AM EDT [facility] Bilirubin, UA Negative Negative 11/11/2024 10:36 AM EDT [facility] Blood, UA Small(A) Negative 11/11/2024 10:36 AM EDT [facility] Nitrite, UA Negative Negative 11/11/2024 10:36 AM EDT [facility] Urobilinogen, UA <2.0 0.2 - 1.9 mg/dL 11/11/2024 10:36 AM EDT [facility] Leukocyte Esterase, UA Negative Negative 11/11/2024 10:36 AM EDT [facility] RBC, UA 13(H) 0 - 3 /HPF 11/11/2024 10:36 AM EDT [facility] WBC, UA 4 0 - 5 /HPF 11/11/2024 10:36 AM EDT [facility] Urine 11/11/2024 9:13 AM EDT 11/11/2024 10:10 AM EDT Yareli Zaragoza DIRECTOR SURFACE TRANSPORTATION URINE ORDERABLES Final Re sult Performing Organization Address [facility]/ZIP Co de Phone Number [facility] [address] * (ABNORMAL) Magnesium (11/04/2024 8:46 AM EDT) Magnesium 1.0(L) 1.5 - 2.5 mg/dL 11/04/2024 10:06 AM EDT [facility] Plasma 11/04/2024 8:46 AM EDT 11/04/2024 9:32 AM EDT Yareli Zaragoza [facility] BLOOD ORDERABLES Denisse l Result Performing Organization Address [facility]/ZIP Co de Phone Number [facility] [address] * (ABNORMAL) Post Kidney Transplant Urine Culture (11/04/2024 8:46 AM EDT) Culture Result Enterococcus faecium, Vancomycin Resistant(A) [facility] Comment: 1,000- <10,000 cfu/mL Identified by MALDI-TOF MS Testing Performed at Laboratory Midstream Urine URINE SPECIMEN / Unknown 11/04/2024 8:46 AM EDT 11/04/2024 10:05 AM EDT Narrative Organism Antibiotic Method Susceptibility Enterococcus faecium, vancomycin resistant Ampicillin SARMAD >=32: Resistant Enterococcus faecium, vancomycin resistant Doxycycline SARMAD >=16: Resistant Enterococcus faecium, vancomycin resistant Linezolid SARMAD 2: Susceptible Enterococcus faecium, vancomycin resistant Nitrofurant oin SARMAD 64: Intermediate Enterococcus faecium, vancomycin resistant Vancomycin SARMAD >=32: Resistant Comment:See Results Yareli Zaragoza CNP MICROBIOLOGY - GENERAL OR DERABLES Final Result Performing Organization Address [facility] Co de Phone Number [facility] [address] [facility]. [address] * Protein / creatinine ratio, urine (11/04/2024 8:46 AM EDT) Creatinine, Urine 37.30 mg/dL 11/04/2024 2:55 PM EDT [facility] Comment:Reference range not established for this test. Total Protein, Ur 42 mg/dL 11/04/2024 2:55 PM EDT [facility] Comment:Reference range not established for this test. Prot/Creat Ratio, Ur 1.13 ratio 11/04/2024 2:55 PM EDT [facility] Urine 11/04/2024 8:46 AM EDT 11/04/2024 9:32 AM EDT Yareli Zaragoza CNP URINE ORDERABLES Final Re sult Performing Organization Address [facility]/ZIP Co de Phone Number [facility] [address] [facility]. [address] * (ABNORMAL) Urinalysis w/Rfl to Microscopic (11/04/2024 8:46 AM EDT) Color, UA Straw Yellow,Straw 11/04/2024 10:07 AM EDT [facility] Clarity, UA Clear Clear 11/04/2024 10:07 AM EDT [facility] Specific Barre, UA 1.012 1.005 - 1.035 11/04/2024 10:07 AM EDT [facility] pH, UA 6.5 5.0 - 8.0 11/04/2024 10:07 AM EDT [facility] Protein, UA Trace(A) Negative mg/dL 11/04/2024 10:07 AM EDT [facility] Glucose, UA Negative Negative mg/dL 11/04/2024 10:07 AM EDT [facility] Ketones, UA Negative Negative mg/dL 11/04/2024 10:07 AM EDT [facility] Bilirubin, UA Negative Negative 11/04/2024 10:07 AM EDT [facility] Blood, UA Large(A) Negative 11/04/2024 10:07 AM EDT [facility] Nitrite, UA Negative Negative 11/04/2024 10:07 AM EDT [facility] Urobilinogen, UA <2.0 0.2 - 1.9 mg/dL 11/04/2024 10:07 AM EDT [facility] Leukocyte Esterase, UA Negative Negative 11/04/2024 10:07 AM EDT [facility] RBC, UA >100(H) 0 - 3 /HPF 11/04/2024 10:07 AM EDT [facility] WBC, UA 2 0 - 5 /HPF 11/04/2024 10:07 AM EDT [facility] Bacteria, UA Rare(A) None Seen /HPF 11/04/2024 10:07 AM EDT [facility] Hyaline Casts, UA 3(H) 0 - 2 /LPF 11/04/2024 10:07 AM T [facility] Urine 11/04/2024 8:46 AM EDT 11/04/2024 9:33 AM EDT Yareli Zaragoza DIRECTOR SURFACE TRANSPORTATION URINE ORDERABLES Final Re sult [facility] [address] [place] [address], [facility] documented in this encounter Visit Diagnoses Diagnosis Kidney transplant recipient- Primary Diarrhea of presumed infectious origin Hypomagnesemia Disorders of magnesium metabolism Hypervolemia, unspecified hypervolemia type Liver transplant recipient (CMS-HCC) Other hypervolemia Hyperparathyroidism (CMS-HCC) Hyperparathyroidism, unspecified Nausea and vomiting, unspecified vomiting type documented in this encounter Additional Health Concerns Infection Onset Date Last Indicated Resolved Time 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, VRE- urine 10/31/2024 11/04/2024 Assessment Noted Time PHQ-9 Depression Total Score: 17 025 11:00 AM EDT documented as of this encounter Care Teams District Plant Engineer Relationship Specialty Start Date End Date Enedina Mcguire NP [address] [place] [address] PCP - General Internal Medicine 10/05/24 Maureen Pantoja, ЮЛИЯ Txp Post Coordinator Transplant Hepatology 10/28/24 documented as of this encounter
--- OUTSIDE RECORDS SUMMARY | 2024-11-11 08:50 | XMS_ITS | Encounter Summary ---
Author Organization [facility] Address [facility] [place] [address] Care Team Providers Care Regrind Mill Operator Name Role Phone Enedina Mcguire NP Primary Care Provider + [phone] Maureen Pantoja RN Unavailable Unavail able Source [...] release of HIV test results or diagnoses. [id number] Reason for Visit * Reason Comments Labs Only Encounter Details Date Type Department Care Team (Late st Contact Info) Description 11/11/2024 8:50 AM EDT Specimen [facility] [address] [place] [address] Harvey Domínguez III, MD [facility] [address] [place] [address] Liver replaced by transplant ([facility]-HCC); Immunosuppressive management encounter following liver transplant ([facility]-HCC); Kidney transplant recipient Social History Tobacco [...] the past 12 months has th e [employer], oil, or water company threatened to shut [...] the past [address] [facility], were you homeless or living in a [...] Immunosuppressive management encounter following liver transplant (CMS-HCC) MAGNESIUM Routine 11/11/2024 9:13 AM EDT Kidney transplant recipient documented in this encounter Results * (ABNORMAL) Magnesium (11/11/2024 9:13 AM EDT) Magnesium 1.2(L) 1.5 - 2.5 mg/dL 11/11/2024 10:51 AM EDT [facility] Plasma 11/11/2024 9:13 AM EDT 11/11/2024 10:19 AM EDT Caron Santos CNP LAB BLOOD ORDERABLES Denisse l Result Performing Organization Address [facility] Co de Phone Number [facility] [address] [place] [address]. [address] * (ABNORMAL) Post Kidney Transplant Urine Culture (11/11/2024 9:13 AM EDT) Culture Result Enterococcus faecium(A) [facility] Comment: <1,000 cfu/mL Identified by MALDI-TOF MS No Further Workup Midstream Urine URINE SPECIMEN / Unknown 11/11/2024 9:13 AM EDT 11/11/2024 10:17 AM EDT Caron Santos WOOD CARVING MACHINE OPERATOR MICROBIOLOGY - GENERAL OR DERABLES Final Result Performing Organization Address [facility] de Phone Number [facility] [address] [place] [address]. [address] * Protein / creatinine ratio, urine (11/11/2024 9:13 AM EDT) Creatinine, Urine 71.40 mg/dL 11/11/2024 10:38 AM EDT [facility] Comment:Reference range not established for this test. Total Protein, Ur 28 mg/dL 11/11/2024 10:38 AM EDT [facility] Comment:Reference range not established for this test. Prot/Creat Ratio, Ur 0.39 ratio 11/11/2024 10:38 AM EDT [facility] Urine 11/11/2024 9:13 AM EDT 11/11/2024 10:12 AM EDT Caron Santos CNP URINE ORDERABLES Final Re sult Performing Organization Address City/[facility]/ZIP Co de Phone Number [facility] [address] * (ABNORMAL) Urinalysis w/Rfl to Microscopic (11/11/2024 9:13 AM EDT) Color, UA Straw Yellow,Straw 11/11/2024 10:36 AM EDT [facility] Clarity, UA Clear Clear 11/11/2024 10:36 AM EDT [facility] Specific [place], UA 1.015 1.005 - 1.035 11/11/2024 10:36 AM EDT [facility] pH, UA 6.0 5.0 - 8.0 11/11/2024 10:36 AM EDT [facility] Protein, UA Negative Negative mg/dL 11/11/2024 10:36 AM EDT [facility] Glucose, UA Negative Negative mg/dL 11/11/2024 10:36 AM EDT [facility] Ketones, UA Negative Negative mg/dL 11/11/2024 10:36 AM EDT [facility] Bilirubin, UA Negative Negative 11/11/2024 10:36 AM EDT [facility] Blood, UA Small(A) Negative 11/11/2024 10:36 AM EDT [facility] Nitrite, UA Negative Negative 11/11/2024 10:36 AM EDT [facility] Urobilinogen, UA <2.0 0.2 - 1.9 mg/dL 11/11/2024 10:36 AM EDT [facility] Leukocyte Esterase, UA Negative Negative 11/11/2024 10:36 AM EDT [facility] RBC, UA 13(H) 0 - 3 /HPF 11/11/2024 10:36 AM EDT [facility] WBC, UA 4 0 - 5 /HPF 11/11/2024 10:36 AM EDT [facility] Urine 11/11/2024 9:13 AM EDT 11/11/2024 10:10 AM EDT us Caron Santos WOOD CARVING MACHINE OPERATOR URINE ORDERABLES Final Re sult [facility] [address] * (ABNORMAL) Differential (11/11/2024 9:13 AM EDT) Neutrophils Relative 69.3 40.0 - 80.0 % 11/11/2024 10:31 AM EDT [facility] Lymphocytes Relative 17.6 15.0 - 45.0 % 11/11/2024 10:31 AM EDT [facility] Monocytes Relative 8.5 0.0 - 12.0 % 11/11/2024 10:31 AM EDT [facility] Eosinophils Relative 2.0 0.0 - 8.0 % 11/11/2024 10:31 AM EDT [facility] Basophils Relative 2.6(H) 0.0 - 1.0 % 11/11/2024 10:31 AM EDT [facility] nRBC 0 0 - 0 /100 WBC 11/11/2024 10:31 AM EDT [facility] Neutrophils Absolute 4,920 1,520 - 8,640 /uL 11/11/2024 10:31 AM EDT [facility] Lymphocytes Absolute 1,250 570 - 4,860 /uL 11/11/2024 10:31 AM EDT [facility] Monocytes Absolute 604 0 - 1,296 /uL 11/11/2024 10:31 AM EDT [facility] Eosinophils Absolute 142 0 - 864 /uL 11/11/2024 10:31 AM EDT [facility] Basophils Absolute 185(H) 0 - 108 /uL 11/11/2024 10:31 AM EDT [facility] Whole Blood 11/11/2024 9:13 AM EDT 11/11/2024 10:19 AM EDT Narrative [facility] - 11/11/2024 10:31 AM EDT Standing orders to be drawn: Every Sunday and before 9am and prior to patient taking morning medications. Liver Transplant Fax results to [phone] Call Critical results to [phone] us Harvey Domínguez III, MD LAB BLOOD ORDERABLE S Final Result [facility] [address] [place] [facility], [facility] * (ABNORMAL) CBC (11/11/2024 9:13 AM EDT) WBC 7.1 3.8 - 10.8 10E3/uL 11/11/2024 10:31 AM EDT [facility] RBC 3.42(L) 4.20 - 5.80 10E6/uL 11/11/2024 10:31 AM EDT [facility] Hemoglobin 10.6(L) 13.2 - 17.1 g/dL 11/11/2024 10:31 AM EDT [facility] Hematocrit 31.3(L) 38.5 - 50.0 % 11/11/2024 10:31 AM EDT [facility] MCV 91.5 80.0 - 100.0 fL 11/11/2024 10:31 AM EDT [facility] MCH 31.0 27.0 - 33.0 pg 11/11/2024 10:31 AM EDT [facility] MCHC 33.8 32.0 - 36.0 g/dL 11/11/2024 10:31 AM EDT [facility] RDW 20.5(H) 11.0 - 15.0 % 11/11/2024 10:31 AM EDT [facility] Platelets 308 140 - 400 10E3/uL 11/11/2024 10:31 AM EDT [facility] MPV 6.1(L) 7.5 - 11.5 fL 11/11/2024 10:31 AM EDT [facility] Whole Blood 11/11/2024 9:13 AM EDT 11/11/2024 10:19 AM EDT Narrative [facility] - 11/11/2024 10:31 AM EDT Standing orders to be drawn: Every Sunday and before 9am and prior to patient taking morning medications. Liver Transplant Fax results to [phone] Call Critical results to [phone] us Harvey Domínguez III, MD LAB BLOOD ORDERABLE S Final Result [facility] [address] [place] [address], [facility] * (ABNORMAL) Renal Function Panel w/EGFR (11/11/2024 9:13 AM EDT) Sodium 141 133 - 146 mmol/L 11/11/2024 10:51 AM EDT [facility] Potassium 4.6 3.5 - 5.3 mmol/L 11/11/2024 10:51 AM EDT [facility] Chloride 108 98 - 110 mmol/L 11/11/2024 10:51 AM EDT [facility] CO2 24 21 - 33 mmol/L 11/11/2024 10:51 AM EDT [facility] Anion Gap 9 3 - 16 mmol/L 11/11/2024 10:51 AM EDT [facility] BUN 27(H) 7 - 25 mg/dL 11/11/2024 10:51 AM EDT [facility] Creatinine 1.14 0.60 - 1.30 mg/dL 11/11/2024 10:51 AM EDT [facility] Glucose 97 70 - 100 mg/dL 11/11/2024 10:51 AM EDT [facility] Calcium 8.6 8.6 - 10.3 mg/dL 11/11/2024 10:51 AM EDT [facility] Phosphorus 4.4 2.1 - 4.7 mg/dL 11/11/2024 10:51 AM EDT [facility] Albumin 3.8 3.5 - 5.7 g/dL 11/11/2024 10:51 AM EDT [facility] Osmolality, Calculated 297 278 - 305 mOsm/kg 11/11/2024 10:51 AM EDT [facility] EGFR 83 11/11/2024 10:51 AM EDT [facility] Comment:As of 2021, the estimated GFR [...] AM EDT 11/11/2024 10:19 AM EDT Narrative [facility] - 11/11/2024 10:51 AM EDT Standing orders to be drawn: Every Sunday and before 9am and prior to patient taking morning medications. Liver Transplant Fax results to [phone] Call Critical results to [phone] DO NOT REPLACE RENAL PANEL or HEPATIC FUNCTION PANEL w/ CMP, BMP or HEPATIC PROFILE us Harvey Domínguez III, MD LAB BLOOD ORDERABLE S Final Result [facility] [address] [place] [address], [facility] * (ABNORMAL) Hepatic Function Panel (11/11/2024 9:13 AM EDT) Total Bilirubin 1.0 0.0 - 1.5 mg/dL 11/11/2024 10:51 AM EDT [facility] Bilirubin, Direct 0.39 0.00 - 0.40 mg/dL 11/11/2024 10:51 AM EDT [facility] AST 15 13 - 39 U/L 11/11/2024 10:51 AM EDT [facility] ALT 26 7 - 52 U/L 11/11/2024 10:51 AM EDT [facility] Alkaline Phosphatase 125 36 - 125 U/L 11/11/2024 10:51 AM EDT [facility] Total Protein 5.9(L) 6.4 - 8.9 g/dL 11/11/2024 10:51 AM EDT [facility] Albumin 3.8 3.5 - 5.7 g/dL 11/11/2024 10:51 AM EDT [facility] Bilirubin, Indirect 0.61 0.00 - 1.10 mg/dL 11/11/2024 10:51 AM EDT [facility] Plasma 11/11/2024 9:13 AM EDT 11/11/2024 10:19 AM EDT Narrative [facility] - 11/11/2024 10:51 AM EDT Standing orders to be drawn: Every Sunday and before 9am and prior to patient taking morning medications. Liver Transplant Fax results to [phone] Call Critical results to [phone] DO NOT REPLACE RENAL PANEL or HEPATIC FUNCTION PANEL w/ CMP, BMP or HEPATIC PROFILE Harvey Domínguez III, MD LAB BLOOD ORDERABLE S Final Result Performing Organization Address City/[facility] Co de Phone Number [facility] [address] [facility]. [address] * Tacrolimus level (11/11/2024 9:13 AM EDT) [facility] Tacrolimus (LC-MS) 10.4 3.0 - 15.0 ng/mL 11/11/2024 1:22 PM EDT [facility] Comment:Performed via liquid chromatography tandem mass spectrometry. Detection limit: 1 ng/mL. Individual target concentrations may vary due to target organ and time after transplant. This test has been developed and its performance characteristics determined by [facility] which is certified under the [...] AM EDT 11/11/2024 10:19 AM EDT Narrative [facility] - 11/11/2024 1:22 PM EDT Standing orders to be drawn: Every Sunday and before 9am and prior to patient taking morning medications. Liver Transplant Fax results to [phone] Call Critical results to [phone] Harvey Domínguez III, MD LAB BLOOD ORDERABLE S Final Result Performing Organization Address City/[facility]/ZIP Co de Phone Number [facility] [address] documented in this encounter Visit Diagnoses Diagnosis Liver replaced by transplant (CMS-HCC) Liver replaced by transplant Immunosuppressive management encounter following liver transplant (CMS-HCC) Kidney transplant recipient documented in this encounter Additional Health Concerns Infection Onset Date 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
--- OUTSIDE RECORDS SUMMARY | 2024-11-11 09:30 | XMS_ITS | Encounter Summary ---
Author Organization [facility] Address [address] [place] [address] Care Team Providers Care Residential Specialist Name Role Phone Enedina Mcguire NP Primary Care Provider + [phone] Maureen Pantoja RN Unavailable Unavail able Source [...] release of HIV test results or diagnoses. [id number] Health Encounter Details Date Type Department Care Team (Late st Contact Info) Description 11/11/2024 9:30 AM EDT Office Visit [facility] Psychiatry Transplant at [facility] [address] [facility] [address] [place] [address] Craig Warren PsyD [address] [facility] [address] [place] [address] PTSD (post-traumatic stress disorder) (Primary [...] In the past 12 months has th [employer], [employer], or [employer] threatened to shut off services in your [...] alcohol and CKD IIIb/IV. Seen by this automatic typewriter inspector for pre-surgical evaluation. PMH includes PTSD and [...] documented as of this encounter Care Teams Residential Specialist Relationship Specialty Start Date End Date Enedina Mcguire NP [address] [place] [address] PCP - General Internal Medicine 10/05/24 Maureen Pantoja, RN Txp Post Coordinator Transplant Hepatology 10/28/24 documented as of this encounter
--- OUTSIDE RECORDS SUMMARY | 2024-11-11 10:00 | XMS_ITS | Encounter Summary ---
Author Organization [facility] Address [address] [place] [address] Care Team Providers Care Setter Off Name Role Phone Enedina Mcguire NP Primary Care Provider + [phone] Maureen Pantoja RN Unavailable Unavail able Source [...] release of HIV test results or diagnoses. [id number] Reason for Visit * Reason Comments Liver Transplant Follow-up Encounter Details Date Type Department Care Team (Late st Contact Info) Description 11/11/2024 10:00 AM EDT Office Visit [facility] Liver Transplant at [place] [address] [place] [address] Cosmo Pacheco MD [address] [place], [place] [address] Surgery [place] [address] Harvey Domínguez III, MD [address] [place] [address] 3200 Transplant [place] [address] Encounter for therapeutic drug monitoring [...] the past 12 months has th e [employer], [employer], oil, or water company threatened to shut [...] in the past [address] [facility], were you homeless or living in [...] = 12 units lancets (ACCU-CHEK SOFTCLIX LANCETS) [facility] Use to test blood sugar up to [...] times a day. naloxone (NARCAN) 4 mg/actuation [place] Apply 1 spray in one nostril if [...] Nutrition: patient continues close f/u w/ transplant neurology technologist. - Bone health: Vit D level to be drawn ~POD#90. - Labs: Labs (CBC w/ diff, renal panel, liver panel, tacro level) twice a week. Lipid panel, [id number] Vit D level to be drawn at POD#90, HgbA1C and Vit D level to be drawn at POD#180. - Follow up: RTC 2 weeks Kemar Sahni MD, Fellow, Multiorgan Abdominal Transplant Surgery. [facility]. [1] Allergies Allergen Reactions Adhesive Itching and [...] documented as of this encounter Care Teams Setter Off Relationship Specialty Start Date End Date Enedina Mcguire NP [address] [place] [address] PCP - General Internal Medicine 10/05/24 Maureen Pantoja, RN Txp Post Coordinator Transplant Hepatology 10/28/24 documented as of this encounter
--- OUTSIDE RECORDS SUMMARY | 2024-11-11 10:30 | XMS_ITS | Encounter Summary ---
Author Organization [facility] Address [address] [place] [address] Care Team Providers Care Spring Intern Name Role Phone Enedina Mcguire NP Primary Care Provider [phone] Maureen Pantoja RN Unavailable Unavail able Source [...] release of HIV test results or diagnoses. [id number] Reason for Visit * Reason Comments Kidney Transplant Follow-up Encounter Details Date Type Department Care Team (Late st Contact Info) Description 11/11/2024 10:30 AM EDT Office Visit [facility] Liver Transplant at [facility] [address] [facility] [address] [place] [address] Unknown, Attending Provider Seble Colon [address] [facility], [facility] [address] [place] [address] Kidney replaced by transplant (Primary [...] Strain: Low Risk (07/09/2024) Received from [facility] Overall Financial Resource Strain (CARDIA) Difficulty of [...] Activity: Unknown (07/14/2024) Received from [facility] Exercise Vital Sign Days of Exercise per Week: Patient unable to answer Minutes of Exercise per Session: Not on file Stress: Patient Unable To Answer (07/14/2024) Received from [facility] [place] of Occupational Health - Occupational Stress Questionnaire Feeling of Stress : Patient unable to answer Social Connections: Patient Unable To Answer (07/14/2024) Received from [facility] Social Connection and Isolation Panel [NHANES] Frequency of Communication with Friends and Family: Patient unable to answer Frequency of Social Gatherings with Friends and Family: Patient unable to answer Attends [employer] Services: Patient unable to answer Active Member [...] Lastdose 11/26/24 blood sugar diagnostic (GLUCOSE BLOOD) [facility] Use to test blood sugar up to 4 times a day. blood-glucose meter (TRUE METRIX GLUCOSE METER) [facility] Use to test blood sugar up to [...] = 12 units lancets (ACCU-CHEK SOFTCLIX LANCETS) [facility] Use to test blood sugar up to [...] times a day. naloxone (NARCAN) 4 mg/actuation [place] Apply 1 spray in one nostril if [...] Results Component Value Date PTH 36.0 10/25/2024 [id number] 7.1 (L) 10/08/2024 Hemoglobin A1C: Lab Results [...] documented as of this encounter Care Teams Spring Intern Relationship Specialty Start Date End Date Enedina Mcguire NP [address] [place] [address] PCP - General Internal Medicine 10/05/24 Maureen Pantoja, RN Txp Post Coordinator Transplant Hepatology 10/28/24 documented as of this encounter
--- OUTSIDE RECORDS SUMMARY | 2024-11-25 10:20 | XMS_ITS | Encounter Summary ---
Author Organization [facility] Address [address] [place] [address] Care Team Providers Care Grinder Set Up Operator Thread Name Role Phone Enedina Mcguire NP Primary Care Provider + [phone] Alicia Rankin RN Unavailable Unavail able Source [...] release of HIV test results or diagnoses. 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 - Bone health: Vit D level to be drawn ~POD#90. - Labs: Labs (CBC w/ diff, renal panel, liver panel, tacro level) twice a week. Lipid panel, [id number] Vit D level to be drawn at POD#90, HgbA1C and Vit D level to be drawn at POD#180. - Follow up: RTC 2 weeks Trinidad Godinez MD, Fellow, Multiorgan Abdominal Transplant Surgery. [facility]. [1] Allergies Allergen Reactions Adhesive [...] therapeutic drug monitoring- Primary S/P liver transplant ([facility]-HCC) Hypomagnesemia Disorders of magnesium metabolism Kidney transplant [...] as of this encounter Care Teams Grinder Set Up Operator Thread Relationship Specialty Start Date End Date Enedina Mcguire NP [address] [place] [address] PCP - General Internal Medicine 10/05/24 Alicia Rankin, ЮЛИЯ Txp Post Coordinator Transplant Hepatology 10/28/24 documented as of this encounter
--- OUTSIDE RECORDS SUMMARY | 2024-11-25 10:50 | XMS_ITS | Encounter Summary ---
Author Organization Address [address] [place] [address] Care Team Providers Care Electric Meter Repairer Name Role Phone Enedina Mcguire NP Primary Care Provider + [phone] Maureen Pantoja RN Unavailable Unavail able Source [...] release of HIV test results or diagnoses. [id number] Reason for Visit * Reason Comments Liver Transplant Follow-up Encounter Details Date Type Department Care Team (Late st Contact Info) Description 11/25/2024 10:50 AM EDT Office Visit [facility] Liver Transplant at [address] [place] [address] Leisa Juarez MD [address] [place] [address] 2nd Floor [place] [address] Seble Colon [facility] [address] [place] [address] NADIYA (acute kidney injury) ([facility]) (Primary Dx); Kidney replaced by transplant; Metabolic acidosis; Hypervolemia associated with renal insufficiency Social History [...] the past 12 months has th e [employer], [employer], oil, or water company threatened to shut [...] Time Taken Comments Blood Pressure 130/81 11/25/2024 10:39 AM EDT Pulse 91 11/25/2024 10:39 AM EDT Temperature 36.5 C (97.7 F) 11/25/2024 10:39 AM EDT Respiratory Rate 16 11/25/2024 10:39 AM EDT Oxygen Saturation 100% 11/25/2024 10:39 AM EDT Inhaled Oxygen Concentration 100% 11/25/2024 1 0:39 AM EDT Weight 94.3 kg (208 lb) 11/25/2024 10:39 AM EDT Height 193 cm (6' 4 ) 11/25/2024 10:39 AM EDT Body Mass Index 25.32 11/25/2024 10:39 AM EDT documented in this encounter Progress Notes * Monicaedelmirahua Colon - 11/25/2024 10:50 AM EDT Images from the original note were not included. Name: Julien Anderson Date of : 1985 (39 y.o.) Date of Service: 11/25/2024 Subjective History of Present Illness: BARBRA Anderson [...] Donor Status: Negative EBV IGG Donor Status: Positive, Not Done Donor's PHS High Risk Status: Yes Chief Complaint: Follow up after SLK. 1 month out History of Present Illness Julien Anderson is a 39 year old male with a history of kidney transplant who presents for follow-up after stent removal and elevated creatinine levels. He is accompanied by his , Manda. He is 30 days post-kidney transplant and had a stent removed earlier today. He experienced significant anxiety prior to the procedure, which he described as 'weird' but manageable. His creatinine level, previously as low as 0.9, is now elevated at 1.59. There have been no recent changes in his tacrolimus (Prograf) dose, last recorded at 11.5 on November 20. He is currently takingtorsemide 10 mg. He has lost 30 pounds over the last three weeks, from 248 pounds to 208 pounds, with a stable weight trend over the past week. He experiences consistent watery diarrhea, approximately four to five times a day. He drinks at least three 30-ounce bottles of water daily, often with drink mixes. He reports discomfort in the right upper and lower quadrants, particularly when activating his abdominal muscles, such as when rolling over in bed or transitioning from sitting to supine. This discomfort is described as mechanical and muscular, rated a 4 out of 10 in severity. He experiences a slight burning sensation when urinating initially, which he attributes to the recent stent removal. No nausea, vomiting, chest pain, or trouble breathing, except when climbing stairs. He is currentlytaking Tylenol three times a day, which he believes is for his liver, but he is unsure why he continues to take it. Review of Systems Per HPI Histories: Past Medical History: Past Medical History: Diagnosis Date Alcoholic cirrhosis of liver (CMS-HCC) Esophageal varices (CMS-HCC) Hepatorenal syndrome (CMS-HCC) Hypertension Other hyperlipidemia 07/26/2024 Renal cell carcinoma ([facility]) Thrombocytopenia ([facility]) Thyroid disease Surgical History: Past Surgical History: [...] Low Risk (07/09/2024) Received from [facility] Overall Financial Resource Strain (CARDIA) Difficulty [...] Answer (07/14/2024) Received from [facility] [place] of Occupational Health - Occupational Stress Questionnaire Feeling of Stress : Patient unable to answer Social Connections: Patient Unable To Answer (07/14/2024) Received from [facility] Social Connection and Isolation Panel [NHANES] Frequency of Communication with Friends and Family: Patient unable to answer Frequency of Social Gatherings with Friends and Family: Patient unable to answer Attends Faith Services: Patient unable to answer Active Member [...] hours. alcohol swabs PadM Use as instructed. blood sugar diagnostic (GLUCOSE BLOOD) Strp Use to test blood sugar up to 4 times a day. blood-glucose meter (TRUE METRIX GLUCOSE METER) [facility] Use to test blood sugar up to 4 times a day. ergocalciferol (ERGOCALCIFEROL) 1,250 mcg (50,000 unit) capsule Take 1 capsule (50,000 Units total)by mouth once a week. famotidine (PEPCID) 20 MG tablet Take 1 tablet (20 mg total) by mouth 2 times a day. FLUoxetine (PROZAC) 20 MG capsule Take 1 [...] = 12 units lancets (ACCU-CHEK SOFTCLIX LANCETS) [facility] Use to test blood [...] times a day. naloxone (NARCAN) 4 mg/actuation [place] Apply 1 spray in one nostril if [...] drink by mouth daily as needed (Constipation). [START ON 12/05/2024] predniSONE (DELTASONE) 5 MG tablet Take 2 tablets (10 mg total) by mouth daily. senna-docusate (SENNOSIDES-DOCUSATE SODIUM) 8.6-50 mg per tablet Take 1 tablet by mouth at bedtime as needed for Constipation. sodium bicarbonate 650 MG tablet Take 1 tablet (650 mg total) by mouth 2 times a day. Indications: metabolic acidosis sulfamethoxazole-trimethoprim (BACTRIM) 400-80 mg per tablet Take 1 tablet by mouth daily. tacrolimus (PROGRAF) 1 MG capsule Take 5 capsules (5 mg total) by mouth every morning AND 6 capsules (6 mg total) at bedtime. Use as directed. Indications: Prevention of Kidney Transplant Rejection, Prevention of Liver Transplant Rejection. valGANciclovir (VALCYTE) 450 mg tablet Take 1 tablet (450 mg total) by mouth daily. No current facility-administered medications for this visit. Allergies: Adhesive and Duloxetine Tacro/CSA Target: Latest Ref Rng & Units 11/13/2024 11/18/2024 11/20/2024 11/25/2024 11/27/2024 Tacro/Creatinine Level Tacrolimus by Immunoassay (USE PT. THRESHOLDS) 6 - 15 ng/mL 10.9 12.5 11.5 Creatinine (USE PT. THRESHOLDS) 0.6 - 1.3 mg/dL 0.90 1.00 1.00 1.59 1.10 Currently Enrolled Research Studies: Objective Physical Examination: Blood pressure 130/81, pulse 91, temperature 97.7 ??F (36.5 ??C), temperature source Oral, resp. rate 16, height 6' 4 (1.93 m), weight 208 lb (94.3 kg), SpO2 100%. Physical Exam VITALS: BP- 130/81 MEASUREMENTS: Weight- 208. Chest clear, Heart sounds regular No edema Review of Lab Results: Renal: Lab Results Component Value Date NA 139 11/27/2024 K 4.4 11/27/2024 CL 103 11/27/2024 CO2 22 11/27/2024 ANIONGAP 12 11/25/2024 BUN 42 (A) 11/27/2024 CREATININE 1.10 11/27/2024 GLUCOSE 104 11/27/2024 CALCIUM 10.5 11/27/2024 PHOS 5.8 (A) 11/27/2024 MG 1.4 (L) 11/25/2024 Hepatic: Lab Results Component Value Date ALKPHOS 149 11/27/2024 AST 13 11/27/2024 ALT 19 11/27/2024 ALBUMIN 4.3 11/27/2024 LABPROT 6.3 09/16/2024 BILIDIRECT 0.4 11/27/2024 BILITOT 0.5 11/27/2024 BILIINDIRECT 0.1 11/27/2024 LIPASE 40 09/04/2024 Lipids: Lab Results Component Value Date CHOLTOT <25 10/07/2024 TRIG 30 10/07/2024 HDL 4 (L) 10/07/2024 LDL See Note 10/07/2024 CBC: Lab Results Component Value Date WBC 6.6 11/27/2024 RBC 3.38 (A) 11/27/2024 HGB 10.2 (A) 11/27/2024 HCT 31.3 (A) 11/27/2024 MCV 92.6 11/27/2024 MCH 30.2 11/27/2024 MCHC 32.6 11/27/2024 RDW 17.7 (A) 11/27/2024 MPV 6.9 (L) 11/25/2024 PLT 158 11/27/2024 Parathyroid: Lab Results Component Value Date PTH 36.0 10/25/2024 [id number] 7.1 (L) 10/08/2024 Hemoglobin A1C: Lab Results [...] Urine: Lab Results Component Value Date LABCREAU 71.40 11/11/2024 LABPROT 6.3 09/16/2024 PROTEINUR 28 11/11/2024 UTPCR 0.39 11/11/2024 Others: Lab Results Component Value Date IRON [...] reconstruction 10/27/24 AlloGraft Function: Tuan at 1.0, NADIYA with 1.59 creatinine this visit likely in the setting of both high Tac level and potential dehydration from ongoing torsemide use. He has lost a lot of weight and has no swelling. Baseline diarrhea is also contributing. Will hold torsemide and reassess. Stent out Advised to drop urine sample to rule out UTI and track proteinuria. Sample is from 2 weeks ago IS: Steroid taper per protocol, MMF 500 mg BID, and tacrolimus Immunosuppression is being managed in conjunction with liver transplant team. Tac is running on thehigh side affecting the kidney numbers. Will discuss to lower it . 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 On linezolid fro 7 days. CMV ppx: Valcyte PJP ppx: Bactrim Fungal ppx: Fluconazole Hypertension: Nifedipine 30 mg daily Blood pressure on target per Office reading Volume status: Eu to hypovolemic. stop torsemide BK Screening: Per protocol Hematology: Hemoglobin improving 11.7 this visit Mineral Bone Disease: Hypomagnesemia : Continue dietary management for now we will consider mag supplement if dropped further Metabolic acidosis: Will decrease bicarb tablets to 1 tablet twice a day Health Maintenance: Deferred at this time in setting of recent transplant RTC: With next liver appt. SEBLE COLON This note was copied forward from the note written by me and EZEKIEL Santos on 11/11/2024. I have reviewed and updated the history, physical exam, data, assessment and plan of the note so that it reflects the evaluation and management of the patient. Number and Complexity of Problems (Level 4) During this encounter, I addressed 1 undiagnosed new problem with uncertain prognosis Amount and/or Complexity of Data Ordered, Reviewed, or Analyzed (Level 4) I reviewed 3+ test(s) including:CBC renal tacrolimus UA. Risk of Complication and/or Morbidity or Mortality of Patient Management (Level 4) The patient's management entails Moderate risk of complications and/or morbidity or mortality. 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
--- OUTSIDE RECORDS SUMMARY | 2024-12-04 14:15 | XMS_ITS | Encounter Summary ---
Author Organization [facility] Address [address] [place] [address] Care Team Providers Care Gas Main Fitter Helper Name Role Phone Enedina Mcguire APRN Primary Care Provider + Reason for Visit * Reason Comments Follow-up Neck Pain Med Management Encounter Details Date Type Department Care Team (Late st Contact Info) Description 12/04/2024 2:15 PM EDT Office Visit [facility] [address] [address] Dawn Christie PA-C [address] [facility] [address] [place] [address] Cervical radiculopathy (Primary Dx); Long-term use of [...] alcohol) 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 [facility] Utilities Answer Date Recorded In the past 12 months has [facility] [employer], gas, oil, or water [employer] threatened to shut off services in [...] Brief Depression Severity Measure Score 0 10/02/2022 [facility] of Occupat ional Health - [...] GED or equivalent No 07/09/2024 Preferred Language Cay[place] Islander 07/09/2024 PHQ-2 Answer Date Recorded Patient Health [...] 2:15 PM EDT Referring Physician: Enedina Mcguire, [employer] [address] [place] [address] Primary Physician: Enedina Mcguire APRN CHIEF COMPLAINT [...] has had kidney and liver transplant at [facility] since his last office visit. Additionally, he has been started on Dilaudid 2 mg every 6 hours and gabapentin 100 mg 3 times daily by one of his transplant providers at the [facility]. He was previously prescribed tramadol 50 mg 1 to 2 tablets daily as needed. Patient reports he is following up weekly with his transplant providers at the [facility]. Continues to have some chronic neck pain. [...] Surgeon: Presley Montes De Oca MD; Location: [facility]; Service: Gastroenterology; Laterality: N/A; ENDOSCOPY N/A 07/29/2022 Procedure: ESOPHAGOGASTRODUODENOSCOPY; Surgeon: Presley Montes De Oca MD; Location: [facility]; Service: Gastroenterology; Laterality: N/A; WITH APC [...] 6 hours from transplant providers at the [facility] for postoperative pain for the last 3 [...] provided from his transplant team at the [facility]. Additionally, this did reveal positive THC. Tramadol is a controlled substance and stated [place] and any use of illicit drugs/substances such [...] Referrals: None indicated 9. Records: Kristofer reviewed; [facility] notes reviewed 10. Lifestyle goals: Follow-up 1 month for medication management [facility] Pain Management Dawn Christie PA-C documented in this encounter Plan of Treatment Upcoming Encounters Date Type Department Care Team (Late st Contact Info) Description 01/01/2025 2:15 PM EDT [facility] 3000 [facility] [address] [place] [address] Dawn Christie PA-C [address] [facility] [address] [place] [address] documented as of this encounter Results * (ABNORMAL) Urine Drug Screen - Urine, Clean Catch (12/04/2024 2:50 PM EDT) THC, Screen, Urine Positive(A) Negative 12/04 8:32 PM EDT [facility] Phencyclidine (PCP), Urine Negative Negative 12/04/2024 8:32 PM EDT [facility] Cocaine Screen, Urine Negative Negative 12/04/2024 8:32 PM EDT [facility] Methamphetamine, Ur Negative Negative 12/04/2024 8:32 PM EDT [facility] Opiate Screen Positive(A) Negative 12/04/2024 8:32 PM EDT [facility] Amphetamine Screen, Urine Negative Negative 12/04/2024 8:32 PM EDT [facility] Benzodiazepine Screen, Urine Negative Negative 12/04/2024 8:32 PM EDT [facility] Tricyclic Antidepressants Screen Negative Negative 12/04/2024 8:32 PM EDT [facility] Methadone Screen, Urine Negative Negative 12/04/2024 8:32 PM EDT [facility] Barbiturates Screen, Urine Negative Negative 12/04/2024 8:32 PM EDT [facility] Oxycodone Screen, Urine Negative Negative 12/04/2024 8:32 PM EDT [facility] Buprenorphine, Screen, Urine Negative Negative 12/04/2024 8:32 PM EDT [facility] Urine Urine specimen obtained by clean catch procedure / Unknown Collection / Unknown 12/04/2024 2:50 PM EDT 12/04/2024 2:54 PM EDT Narrative [facility] - 12/04/2024 8:32 PM EDT Cutoff [...] when unconfirmed results are used. us Dawn Christie PA-C URINE ORDERABLES Final R esult [facility]
[address] [place] [address], documented in this encounter Visit Diagnoses Diagnosis [...] documented as of this encounter Care Teams Gas Main Fitter Helper Relationship Specialty Start Date End Date Enedina Mcguire APRN [address] [place] [address] PCP - General Nurse Practitioner 10/27/24 documented as of this encounter
--- OUTSIDE RECORDS SUMMARY | 2024-12-04 14:55 | XMS_ITS | Encounter Summary ---
[facility] Address [address] [place] [address] Care Team Providers Care Hose Cementer Name Role Phone Enedina Mcguire APRN Primary Care Provider + Encounter Details Date Type Department Care Team (Late st Contact Info) Description 12/04/2024 2:55 PM EDT Lab [facility] [place] [address] [place] [address] Therapeutic drug monitoring Social History Tobacco Use Types Packs/Day Years Used Date Smoking Tobacco: Former Cigarettes 4 20 Passive Smoke Exposure: Past Smokeless Tobacco: Current Comments:MARIJUANA USE ABOUT 2X PER WEEK - reports no use 08-05-2024 Alcohol Use Standard Drinks/Week Comments Not Currently 0 (1 standard drink = 0.6 oz pure alcohol) 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 [facility] Utilities Answer Date Recorded In the past 12 months has [employer], [employer], oil, or water [employer] threatened to shut off services in [...] Depression Severity Measure Score 0 10/02/2022 [facility] - Occupational Stress Questionnaire [...] GED or equivalent No 07/09/2024 Preferred Language Occitan 07/09/2024 PHQ-2 Answer Date Recorded Patient Health [...] Description 01/01/2025 2:15 PM EDT Office Visit [facility] PA[facility]EMENT [address] [address] Vazquez Christie PA-C [address] [place] [address] documented as of this encounter Procedures Procedure Name Priority Date/Time Associated Diagnosis Comments URINE DRUG SCREEN Routine 12/04/2024 2:5 0 PM EDT Therapeutic drug monitoring FENTANYL, URINE Routine 12/04/2024 2:50 PM EDT Therapeutic drug monitoring documented in this encounter Results * Fentanyl, Urine - Urine, Clean Catch (12/04/2024 2:50 PM EDT) Fentanyl, Urine Negative Negative 12/04/2024 9:15 PM EDT [facility] Urine Urine specimen obtained by clean catch procedure / Unknown Collection / Unknown 12/04/2024 2:50 PM EDT 12/04/2024 2:54 PM EDT Narrative [facility] - 12/04/2024 9:15 PM EDT [...] Pratik PA-C URINE ORDERABLES Final R esult [facility]
[address] [place] [address], * (ABNORMAL) Urine Drug Screen - Urine, Clean Catch (12/04/2024 2:50 PM EDT) THC, Screen, Urine Positive(A) Negative 12/04 8:32 PM EDT [facility] Phencyclidine (PCP), Urine Negative Negative 12/04/2024 8:32 PM EDT [facility] Cocaine Screen, Urine Negative Negative 12/04/2024 8:32 PM EDT [facility] Methamphetamine, Ur Negative Negative 12/04/2024 8:32 PM EDT [facility] Opiate Screen Positive(A) Negative 12/04/2024 8:32 PM EDT [facility] Amphetamine Screen, Urine Negative Negative 12/04/2024 8:32 PM EDT [facility] Benzodiazepine Screen, Urine Negative Negative 12/04/2024 8:32 PM EDT [facility] Tricyclic Antidepressants Screen Negative Negative 12/04/2024 8:32 PM EDT [facility] Methadone Screen, Urine Negative Negative 12/04/2024 8:32 PM EDT [facility] Barbiturates Screen, Urine Negative Negative 12/04/2024 8:32 PM EDT [facility] Oxycodone Screen, Urine Negative Negative 12/04/2024 8:32 PM EDT [facility] Buprenorphine, Screen, Urine Negative Negative 12/04/2024 8:32 PM EDT [facility] Urine Urine specimen obtained by clean catch procedure / Unknown Collection / Unknown 12/04/2024 2:50 PM EDT 12/04/2024 2:54 PM EDT Narrative [facility] - 12/04/2024 8:32 PM [...] Otilio JACOME-Lalit URINE ORDERABLES Final R esult [facility]
[address] [place] [address], documented in this encounter Visit Diagnoses Diagnosis Therapeutic drug monitoring Encounter for therapeutic drug monitoring documented in this encounter Additional Health Concerns Assessment Noted Time PHQ-2 Depression Total Score: 1 12/31/19 24 3:25 PM EDT documented as of this encounter Care Teams Hose Cementer Relationship Specialty Start Date End Date Enedina Mcguire APRN [address] [place] [address] PCP - General Nurse Practitioner 10/27/24 documented as of this encounter
--- OUTSIDE RECORDS SUMMARY | 2024-12-09 09:50 | XMS_ITS | Encounter Summary ---
Author Organization [facility] Address [address] [place] [address] Care Team Providers Care Creative Lead Name Role Phone Enedina Mcguire NP Primary Care Provider + [phone] Maureen Pantoja RN Unavailable Unavail able Source [...] release of HIV test results or diagnoses. [id number] Health Encounter Details Date Type Department Care Team (Late st Contact Info) Description 12/09/2024 9:50 AM EDT Office Visit [facility] Liver Transplant at [place] [address] [place] [address] Leisa Juarez MD [address] [place] [address] 2nd [place] [address] Kidney transplant recipient (Primary Dx); Immunosuppressive management encounter following liver transplant ([facility]); Hypomagnesemia; S/P liver transplant ([facility]); Hypertension, unspecified type; Hyperparathyroidism ([facility]) Social History Tobacco Use Types Packs/Day [...] liver (CMS-HCC) Esophageal varices (CMS-HCC) Hepatorenal syndrome ([facility]) Hypertension Other hyperlipidemia 07/26/2024 Renal cell carcinoma (CMS-HCC) Thrombocytopenia ([facility]) Thyroid disease Surgical History: Past Surgical [...] Strain: Low Risk (07/09/2024) Received from [facility] Overall Financial Resource Strain (CARDIA) Difficulty [...] No Physical Activity: Unknown (07/14/2024) Received from [facility] Exercise Vital Sign Days of Exercise per Week: Patient unable to answer Minutes of Exercise per Session: Not on file Stress: Patient Unable To Answer (07/14/2024) Received from [facility] [place] of Occupational Health - Occupational Stress Questionnaire Feeling of Stress : Patient unable to answer Social Connections: Patient Unable To Answer (07/14/2024) Received from [facility] Social Connection and Isolation Panel [...] times a day. naloxone (NARCAN) 4 mg/actuation [place] Apply 1 spray in one nostril if [...] Results Component Value Date PTH 36.0 10/25/2024 [id number] 7.1 (L) 10/08/2024 Hemoglobin A1C: Lab Results [...] Discussed with Dr. Juarez. Lauren Santos, SAMSON, GLASS TECHNICIAN/INSTALLER, CHEMIST PHYSICAL- Transplant Nephrology [phone] Preferred contact: secure chat The HPI, ROS, [...] Primary Immunosuppressive management encounter following liver transplant ([facility]) Hypomagnesemia Disorders of magnesium metabolism S/P liver transplant ([facility]) Hypertension, unspecified type Hyperparathyroidism ([facility]) Hyperparathyroidism, unspecified documented in this encounter Additional Health Concerns Infection Onset Date Last Indicated Resolved Time 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
--- OUTSIDE RECORDS SUMMARY | 2024-12-09 10:20 | XMS_ITS | Encounter Summary ---
Author Organization [facility] Address [address] [place] [address] Care Team Providers Care Child Care Associate Name Role Phone Enedina Mcguire NP Primary Care Provider + [phone] Maureen Pantoja RN Unavailable Unavail able Source [...] release of HIV test results or diagnoses. [id number] Reason for Visit * Reason Comments Liver Transplant Follow-up Encounter Details Date Type Department Care Team (Late st Contact Info) Description 12/09/2024 10:20 AM EDT Office Visit [facility] Liver Transplant at [facility] [address] [facility] [address] [place] [address] Harvey Domínguez III, MD [address] [facility] [address] [place] [address] Encounter for therapeutic drug monitoring (Primary Dx); S/P liver transplant (CMS-HCC); Hypomagnesemia; Kidney transplant recipient; Hypertension, unspecified type; Gastroesophageal reflux disease, unspecified whether esophagitis present Social History Tobacco Use Types Packs/Day Years Used Date Smoking Tobacco: Former Cigarettes Smokeless Tobacco: Current Tobacco Cessation:Counseling Given: No Alcohol Use Standard Drinks/Week Comments Yes 0 (1 standard drink = 0.6 oz pure alcohol) History of alcohol abuse, reports no use in 3 week- typically endorses use as 4 glasses of wine a days Utilities Answer Date Recorded In the past 12 months has th e [employer], [employer], oil, or water [employer] threatened to shut off services in [...] /2025 Assistance needed for: Not on file Yearly [...] Sign Reading Time Taken Comments Blood Pressure 130/91 12/09/2024 10:58 AM EDT Pulse 81 12/09/2024 10:58 AM EDT Temperature - - Respiratory Rate 16 12/09/2024 10:58 AM EDT Oxygen Saturation 100% 12/09/2024 10:58 AM EDT Inhaled Oxygen Concentration 100% 12/09/2024 1 0:58 AM EDT Weight 101.6 kg (224 lb) 12/09/2024 10:58 AM EDT Height - - Body Mass Index 27.27 11/25/2024 10:39 AM EDT documented in this encounter Patient Instructions * Patient Instructions* Rose Montelongo MD - 12/09/2024 10:20 AM EDT Discontinue Insulin Prednisone continue taking 10mg daily till 12/18/2024. After that decrease dose to 7.5 mg daily for 2weeks or until your next appointment. Start naltrexone 50mg for alcohol cravings. Increase tacrolimus dose to 6 mg twice a day. Follow-up in 1 month. documented in this encounter Progress Notes * Rose Montelongo MD - 12/09/2024 10:20 AM EDT Transplant Hepatology Follow Up [...] Path : negative for malignancy Interval history: Feels great still having some RUQ discomfort when coughing or sneezing, feels more fullness especially if taking a deep breath. Takes 2mg dilaudid and ran out of it and feels he can go without it. Still does counselling for ETOH use and had one relapse with recent PETH elevated, counsellor and RN team aware. He has not drank alcohol since then. He is now interested in naltrexone and wondering if its ok to use and wondering if we can prescribe. Today also wonders if he can drive and he was told he is ok to drive. He had questions regarding lifting restrictions and we recommended 3 months at least before return to work. . 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 Compliant with immunosuppression. Tacro 5/6, CellCept 500 BID, prednisone 10 daily. Measuring sugars has not taken insulinin 2-3 weeks. BS in morning ~100 and midday anywhere between 120-140. ROS: The following portions of the patient [...] alert, oriented x 3, no tremors Extremities: no LE edema Skin: No rash or jaundice [...] BLOOD 9.9 Radiology: Assessment and Plan: 39yo, POD#44 from [facility] for ETOH cirrhosis and HRS. Post operative complications as noted above. - Graft function:excellent - Immune suppression: most recent tacro level 7.5 . Increase tacrolimus to 6 BID form 09/16. ContinueCellcept 500 mg BID. Prednisone was changed from 15 to 10 on 12/05. Plan to taper every two weeks next down to 7.5 mg daily on 12/18/2024. - HCC surveillance: Patient is categorized as low risk for HCC recurrence - HCV/HBV : donor acute risk, KIANA negative - ID prophylaxis/surveillance: - CMV R+, on 3 months valcyte - 01/26/25 will need 6 months PJP prophon Bactrim SS daily until 01/26/25. Fluconazole - 1 month- completed - Diabetes: Off insulin this visit. - CV: h/o HTN on nifedipime 30 daily. Off torsemide last visit. - Wound: no issues - DVT px: completed 30 days eliquis - Psychosocial: Patient w/ h/o alcohol abuse will continue serial Peths and counselling. Start naltrexone 50 mg this vsit. - Pain: pervious high narcotic requirement. Discharged on 2 mg dilaudid q6h. Now of pain medication. - Nutrition: patient continues close f/u w/ transplant deaf and hard of hearing teacher. - Bone health: Vit D level to be drawn ~POD#90. - Labs: Labs (CBC w/ diff, renal panel, liver panel, tacro level) weekly. Lipid panel, HgbA1C and Vit D level to be drawn at POD#90, HgbA1C and Vit D level to be drawn at POD#180. - Follow up: RTC 1 month Rose Montelongo MD Gastroenterology fellow PGY4 Case discussed with Dr Domínguez [1] Allergies Allergen Reactions Adhesive Itching and Rash Tegaderm adhesive on Ivs, pt states its tolerable Duloxetine Other (See Comments) Became Manic Cosigned by Harvey Domínguez III, MD at 12/09/2024 10:04 PM EDT Associated attestation - Harvey Domínguez III, MD - 12/09/2024 10:04 PM EDT I saw and evaluated the patient, and discussed with the fellow. I agree with the fellow???s findings and plan as documented in the fellow???s note. Immunosuppression reviewed and discussed with the fellow. --- Diandra Domínguez III, MD Transplant Surgery (cell) * Maureen Pantoja RN - 12/09/2024 10:20 AM EDT After visit summary including patient instructions reviewed with patient. Discontinue Insulin Prednisone continue taking 10mg daily till 12/18/2024. After that decrease dose to 7.5 mg daily for 2weeks or until your next appointment. Start naltrexone 50mg for alcohol cravings. Increase tacrolimus dose to 6 mg twice a day. Increase Valcyte to 900 mg daily as renal function has improved. Continue weekly labs. Follow-up in 1 month. Checked with patient to see if prescription refills and/or lab orders were needed. Updated preferred pharmacy and preferred lab information in patient demographics. Care coordinated with other team members and other medical providers as needed. Patient presents with the following needs: None verbalized at this time. documented in this encounter [...] documented as of this encounter Care Teams Child Care Associate Relationship Specialty Start Date End Date Enedina Mcguire NP [address] [place] [address] PCP - General Internal Medicine 10/05/24 Maureen Pantoja, ЮЛИЯ Txp Post Coordinator Transplant Hepatology 10/28/24 documented as of this encounter
--- OUTSIDE RECORDS SUMMARY | 2024-12-09 11:45 | XMS_ITS | Encounter Summary ---
Author Organization [facility] Address [address] [place] [address] Care Team Providers Care Lead Laying And Gluing Machine Operator Name Role Phone Enedina Mcguire NP Primary Care Provider + [phone] Maureen Pantoja RN Unavailable Unavail able Source [...] release of HIV test results or diagnoses. [id number] Health Encounter Details Date Type Department Care Team (Late st Contact Info) Description 12/09/2024 11:45 AM EDT Office Visit [facility] Psychiatry Transplant at [place] [address] [phone] Rebekah Linares, [address] [place] [address] Alcohol use disorder (Primary Dx) [...] Recorded In the past 12 months has [employer], gas, oil, or water [employer] threatened to shut off services in your [...] no psychomotor abnormalities Cognition: short term and snf memory intact Attitude: cooperative Affect: full range [...] documented as of this encounter Care Teams Lead Laying And Gluing Machine Operator Relationship Specialty Start Date End Date Enedina Mcguire NP [address] [place] [address] PCP - General Internal Medicine 10/05/24 Maureen Pantoja, RN Txp Post Coordinator Transplant Hepatology 10/28/24 documented as of this encounter
--- OUTSIDE RECORDS SUMMARY | 2024-12-18 14:00 | XMS_ITS | Encounter Summary ---
Author Organization [facility] Address [address] [place] [address] Care Team Providers Care Agricultural Research Technician Name Role Phone Enedina Mcguire NP Primary Care Provider [phone] Maureen Pantoja RN Unavailable Unavail able Source [...] release of HIV test results or diagnoses. [id number] Reason for Visit * Auth/Cert (Routine) Specialty Diagnoses / Procedures Referred By Shane hernadez Referred To Contact Psychiatry [facility] Psychiatry Transplant at [address] [address] Phone: tel: fax: Referral ID Status Reason Start Date Expiration Date Visits Re quested Visits Authorized [id number] 1 1 Encounter Details Date Type Department Care Team (Late st Contact Info) Description 12/18/2024 2:00 PM EDT Office Visit [facility] Psychiatry Transplant at [address] [place] [phone] Craig Warren PsyD [address] [facility] [address] [place] [address] Alcohol use disorder (Primary Dx); [...] the past 12 months has th e [employer], [employer], oil, or water [employer] threatened to shut off services in your [...] alcohol and CKD IIIb/IV. Seen by this conventional mortgage underwriter for pre-surgical evaluation. PMH includes PTSD and [...] AUD Plan: No follow up with this conventional mortgage underwriter indicated at this time Patient to follow [...] documented as of this encounter Care Teams Agricultural Research Technician Relationship Specialty Start Date End Date Enedina Mcguire NP [address] [place] [address] PCP - General Internal Medicine 10/05/24 Maureen Pantoja, ЮЛИЯ Txp Post Coordinator Transplant Hepatology 10/28/24 documented as of this encounter
--- OUTSIDE RECORDS SUMMARY | 2024-12-31 09:39 | XMS_ITS | Encounter Summary ---
Author Organization [facility] Address [address] [place] [address] Care Team Providers Care Blindstitch Lapel Padder Name Role Phone Enedina Mcguire NP Primary Care Provider + [phone] Maureen Pantoja RN Unavailable Unavail able Source [...] release of HIV test results or diagnoses. [id number] Health Encounter Details Date Type Department Care Team (Late st Contact Info) Description 11/27/2024 Chart Note [facility] Liver Transplant at [address] [place] [phone] Marlene Ro MA FK Pending 11/27 Labs [...] In the past 12 months has e [employer], gas, oil, or water [employer] threatened to shut off services in your [...] Resulting Agency Comment [facility] Result [facility] Provider LAB BLOOD ORDERABLES Denisse l Result * Protime-INR (11/27/2024 7:50 AM EDT) Pathologist [facility] INR 0.93 0.9 - 1.1 Plasma Narrative Resulting Agency Comment [facility] Result [facility] Provider LAB BLOOD ORDERABLES Denisse l Result * (ABNORMAL) CBC and differential (11/27/2024 7:50 AM EDT) [facility] Hemoglobin 10.2(A) 13.5 - 17.5 g/dL [...] 6.6 10^3/mL Blood Narrative Resulting Agency Comment [facility] Result [facility] Provider LAB BLOOD ORDERABLES Denisse l Result * Hepatic Function Panel (11/27/2024 7:50 AM EDT) Pathologist [facility] Bilirubin, Direct 0.4 Bilirubin, Indirect 0.1 Alkaline [...] documented as of this encounter Care Teams Blindstitch Lapel Padder Relationship Specialty Start Date End Date Enedina Mcguire NP [address] [place] [address] PCP - General Internal Medicine 10/05/24 Maureen Pantoja, RN Txp Post Coordinator Transplant Hepatology 10/28/24 documented as of this encounter
--- OUTSIDE RECORDS SUMMARY | 2024-12-31 09:39 | XMS_ITS | Encounter Summary ---
Author Organization [facility] Address [address] [place] [address] Care Team Providers Care Catering And Events Manager Name Role Phone Enedina Mcguire NP Primary Care Provider + [phone] Maureen Pantoja RN Unavailable Unavail able Source [...] release of HIV test results or diagnoses. [id number] Health Encounter Details Date Type Department Care Team (Late st Contact Info) Description 12/01/2024 Telephone [facility] Liver Transplant at [address] [place] [phone] Gladis Chisholm MA Social History Tobacco [...] the past 12 months has [employer], gas, oil, or water [employer] threatened to shut off services in your [...] have tried to fax his orders through [employer] but was unsuccessful. The plan is to send him a copy via but wanted confirmation that he had a way to print them out. * Gladis Chisholm MA - 12/01/2024 3:08 PM EDT Pt called to request that an order for a urinalysis be put in for him to get done at [facility]. Please advise. documented in [...] as of this encounter Care Teams Catering And Events Manager Relationship Specialty Start Date End Date Enedina Mcguire NP [address] [place] [address] PCP - General Internal Medicine 10/05/24 Maureen Pantoja, RN Txp Post Coordinator Transplant Hepatology 10/28/24 documented as of this encounter
--- OUTSIDE RECORDS SUMMARY | 2024-12-31 09:39 | XMS_ITS | Encounter Summary ---
Author Organization [facility] Address [address] [place] [address] Care Team Providers Care Financial Investment Manager Name Role Phone Enedina Mcguire NP Primary Care Provider + [phone] Maureen Pantoja RN Unavailable Unavail able Source [...] release of HIV test results or diagnoses. [id number] Reason for Visit * Reason Comments Results Encounter Details Date Type Department Care Team (Riky st Contact Info) Description 11/27/2024 Telephone [facility] Liver Transplant at [address] [phone] Maureen Pantoja, RN Results Social [...] In the past 12 months has e [employer], gas, oil, or water [employer] threatened to shut off services in your [...] documented as of this encounter Care Teams Financial Investment Manager Relationship Specialty Start Date End Date Enedina Mcguire NP [address] [place] [address] PCP - General Internal Medicine 10/05/24 Maureen Pantoja, ЮЛИЯ Txp Post Coordinator Transplant Hepatology 10/28/24 documented as of this encounter
--- OUTSIDE RECORDS SUMMARY | 2024-12-31 09:43 | XMS_ITS | Encounter Summary ---
Author Organization [facility] Address [address] [place] [address] Care Team Providers Care Site Safety Manager Name Role Phone Enedina Mcguire NP Primary Care Provider + [phone] Maureen Pantoja RN Unavailable Unavail able Source [...] release of HIV test results or diagnoses. [id number] Reason for Visit * Reason Comments Results Encounter Details Date Type Department Care Team (Riky st Contact Info) Description 11/11/[address] [facility] Liver Transplant at [address] [phone] Maureen Pantoja, RN Results Social [...] In the past 12 months has e [employer], gas, oil, or water [employer] threatened to shut off services in [...] documented as of this encounter Care Teams Site Safety Manager Relationship Specialty Start Date End Date Enedina Mcguire NP [address] [place] [address] PCP - General Internal Medicine 10/05/24 Maureen Pantoja, RN Txp Post Coordinator Transplant Hepatology 10/28/24 documented as of this encounter
--- OUTSIDE RECORDS SUMMARY | 2024-12-31 09:43 | XMS_ITS | Encounter Summary ---
Author Organization [facility] Address [address] [place] [address] Care Team Providers Care Net Ui Developer Name Role Phone Enedina Mcguire NP Primary Care Provider + [phone] Maureen Pantoja RN Unavailable Unavail able Source [...] release of HIV test results or diagnoses. [id number] Health Encounter Details Date Type Department Care Team (Late st Contact Info) Description 11/25/2024 Social Work [facility] Liver Transplant at [address] [place] [phone] Kaylin Willard MSW Social History Tobacco Use [...] Recorded In the past 12 months has [employer], gas, oil, or water [employer] threatened to shut off services in [...] AM 09/29/2024 11:00 AM 11/25/2024 3:00 PM [id number] Score MAGALYS-7 Total Score 17 13 4 Scores are not concerning for depression/anxiety. No further SW needs identified. 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
--- OUTSIDE RECORDS SUMMARY | 2024-12-31 09:43 | XMS_ITS | Encounter Summary ---
Author Organization [facility] Address [address] [place] [address] Care Team Providers Care Linen Worker Name Role Phone Enedina Mcguire NP Primary Care Provider + [phone] Maureen Pantoja RN Unavailable Unavail able Source [...] release of HIV test results or diagnoses. [id number] Reason for Visit * Reason Comments Medication Refill Refill Request 1st A ttempt Encounter Details Date Type Department Care Team (Late st Contact Info) Description 10/20/[address] [facility] Office [address] [place] [phone] Gerri Peterson MD [address] [place] [address] Social History Tobacco Use Types Packs/Day Years Used Date Smoking Tobacco: Former Cigarettes Smokeless Tobacco: Current Alcohol Use Standard Drinks/Week Comments Yes 0 (1 standard drink = 0.6 oz pure alcohol) History of alcohol abuse, reports no use in 3 week- typically endorses use as 4 glasses of wine a days Utilities Answer Date Recorded In the past 12 months has [employer], gas, oil, or water [employer] threatened to shut off services in your [...] need filled today. PHARMACY & PHONE #: [facility] [address] [place], [place] [id number] [address] DATE OF LAST APPT: 09/02/2024 Gerri Peterson [...] documented as of this encounter Care Teams Linen Worker Relationship Specialty Start Date End Date Enedina Mcguire NP [address] [place] [address] PCP - General Internal Medicine 10/05/24 Maureen Pantoja, RN Txp Post Coordinator Transplant Hepatology 10/28/24 documented as of this encounter
--- OUTSIDE RECORDS SUMMARY | 2024-12-31 09:43 | XMS_ITS | Encounter Summary ---
Author Organization [facility] Address [address] [place] [address] Care Team Providers Care Recoater Name Role Phone Enedina Mcguire NP Primary Care Provider + [phone] Maureen Pantoja RN Unavailable Unavail able Source [...] release of HIV test results or diagnoses. [id number] Health Encounter Details Date Type Department Care Team (Late st Contact Info) Description 11/10/2024 Orders Only [facility] Liver Transplant at [address] [place] [address] Maureen Pantoja, RN Social History Tobacco Use [...] Recorded In the past 12 months has [employer], gas, oil, or water [employer] threatened to shut off services in your [...] documented as of this encounter Care Teams Recoater Relationship Specialty Start Date End Date Enedina Mcguire NP [address] [place] [address] PCP - General Internal Medicine 10/05/24 Maureen Pantoja, ЮЛИЯ Txp Post Coordinator Transplant Hepatology 10/28/24 documented as of this encounter
--- OUTSIDE RECORDS SUMMARY | 2024-12-31 09:43 | XMS_ITS | Encounter Summary ---
Author Organization [facility] Address [address] [place] [address] Care Team Providers Care Security Manager Name Role Phone Enedina Mcguire NP Primary Care Provider + [phone] Maureen Pantoja RN Unavailable Unavail able Source [...] release of HIV test results or diagnoses. [id number] Reason for Visit * Reason Comments Medication Refill Refill Request 1st A ttempt Encounter Details Date Type Department Care Team (Late st Contact Info) Description 10/21/2024 Refill [facility] Gastroenterology at [facility] Office [address] [place] [phone] Gerri Peterson MD [address] [place] [address] Social History Tobacco Use Types Packs/Day Years Used Date Smoking Tobacco: Former Cigarettes Smokeless Tobacco: Current Alcohol Use Standard Drinks/Week Comments Yes 0 (1 standard drink = 0.6 oz pure alcohol) History of alcohol abuse, reports no use in 3 week- typically endorses use as 4 glasses of wine a days Utilities Answer Date Recorded In the past 12 months has [employer], gas, oil, or water [employer] threatened to shut off services in your [...] as of this encounter Care Teams Security Manager Relationship Specialty Start Date End Date Enedina Mcguire NP [address] [place] [address] PCP - General Internal Medicine 10/05/24 Maureen Pantoja, ЮЛИЯ Txp Post Coordinator Transplant Hepatology 10/28/24 documented as of this encounter
--- OUTSIDE RECORDS SUMMARY | 2024-12-31 09:43 | XMS_ITS | Encounter Summary ---
Author Organization [facility] Address [facility] [place] [address] Care Team Providers Care Client Analyst Name Role Phone Enedina Mcguire NP Primary Care Provider + [phone] Maureen Pantoja RN Unavailable Unavail able Source [...] release of HIV test results or diagnoses. [id number] Reason for Visit * Reason Comments After Hours Call Passing blood throug h stool states started this morning has had 3 bloody bowel movements kidney and liver txp done 2 weeks ago Encounter Details Date Type Department Care Team (Late st Contact Info) Description 11/09/2024 Telephone [facility] PATIENT SERVICES [address] [place] [address] Unknown, Attending Provider After Hours [...] Recorded In the past 12 months has [employer], gas, oil, or water [employer] threatened to shut off services in your [...] Caller to Patient and Callback: dionna anderson [phone] Patient of: liver txp txp team Nature of Call: Passing blood through stool states started this morning has had 3 bloody bowel movements kidney and liver txp done 2 weeks ago Drum Stock Clerk Provider Contacted: del turner Time and Method of Contact: via cell phone 1133 am connected coordinator to dionna at 1135 am Advise Caller: If provider does not call back within 30 minutes, please call us back. ROUTE TELEPHONE NOTE - Follow Qgenda and/or Route Directly to Provider. COPY this note into [facility] Teams chat. 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
--- OUTSIDE RECORDS SUMMARY | 2024-12-31 09:43 | XMS_ITS | Encounter Summary ---
Author Organization [facility] Address [address] [place] [address] Care Team Providers Care Vessel Slagman Name Role Phone Enedina Mcguire NP Primary Care Provider + [phone] Maureen Pantoja RN Unavailable Unavail able Source [...] release of HIV test results or diagnoses. [id number] Health Encounter Details Date Type Department Care Team (Late st Contact Info) Description 11/07/2024 Telephone [facility] Liver Transplant at [address] [phone] Marlene Ro MA Social History [...] Recorded In the past 12 months has [employer], gas, oil, or water [employer] threatened to shut off services in [...] documented as of this encounter Care Teams Vessel Slagman Relationship Specialty Start Date End Date Enedina Mcguire NP [address] [place] [address] PCP - General Internal Medicine 10/05/24 Maureen Pantoja, ЮЛИЯ Txp Post Coordinator Transplant Hepatology 10/28/24 documented as of this encounter
--- OUTSIDE RECORDS SUMMARY | 2024-12-31 09:43 | XMS_ITS | Encounter Summary ---
Author Organization [facility] Address [address] [place] [address] Care Team Providers Care Fresh Work Wrapper Layer Name Role Phone Enedina Mcguire NP Primary Care Provider + [phone] Maureen Pantoja RN Unavailable Unavail able Source [...] release of HIV test results or diagnoses. [id number] Reason for Visit * Reason Comments Results Encounter Details Date Type Department Care Team (Late st Contact Info) Description 11/07/2024 Telephone [facility] Liver Transplant at [address] [address] Maureen Pantoja, RN Results Social [...] [employer], gas, oil, or water [employer] threatened to shut off services in your [...] as of this encounter Care Teams Fresh Work Wrapper Layer Relationship Specialty Start Date End Date Enedina Mcguire NP [address] [place] [address] PCP - General Internal Medicine 10/05/24 Maureen Pantoja, RN Txp Post Coordinator Transplant Hepatology 10/28/24 documented as of this encounter
--- OUTSIDE RECORDS SUMMARY | 2024-12-31 09:43 | XMS_ITS | Encounter Summary ---
Author Organization [facility] Address [address] [place] [address] Care Team Providers Care Concrete Precast Moulder Name Role Phone Enedina Mcguire NP Primary Care Provider + [phone] Maureen Pantoja RN Unavailable Unavail able Source [...] release of HIV test results or diagnoses. [id number] Health Encounter Details Date Type Department Care Team (Late st Contact Info) Description 11/07/2024 Chart Note [facility] Liver Transplant at [address] [place] [phone] Marlene Ro MA FK Pending Social History [...] Recorded In the past 12 months has [employer], gas, oil, or water [employer] threatened to shut off services in your [...] 5.0 g/dL Blood Narrative Resulting Agency Comment [facility] Historical Provider LAB BLOOD ORDERABLES [...] 7.5 10^3/mL Blood Narrative Resulting Agency Comment [facility] Historical Provider LAB BLOOD ORDERABLES Denisse l Result * (ABNORMAL) Hepatic Function Panel (11/06/2024 8:36 AM EDT) Pathologist [facility] Bilirubin, Direct 0.7 Bilirubin, Indirect 0.2 Alkaline Phosphatase 142 U/L ALT 59 U/L AST 24 U/L Total Bilirubin 0.9 0.1 - 1.4 mg/dL Total Protein 5.4(A) 6.4 - 8.2 g/dL Plasma Narrative Resulting Agency Comment [facility] Historical Provider LAB BLOOD ORDERABLES Denisse l Result documented in this encounter Visit Diagnoses Not on filedocumented in this encounter Additional Health Concerns Infection Onset Date Last Indicated Resolved Time 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
--- OUTSIDE RECORDS SUMMARY | 2024-12-31 09:43 | XMS_ITS | Encounter Summary ---
Author Organization [facility] Address [address] [place] [address] Care Team Providers Care Arabic Professor Name Role Phone Enedina Mcguire NP Primary Care Provider + [phone] Maureen Pantoja RN Unavailable Unavail able Source [...] release of HIV test results or diagnoses. [id number] Reason for Visit * Reason Comments Medication Management Requesting RX for New Medication Encounter Details Date Type Department Care Team (Late st Contact Info) Description 10/21/2024 Telephone [facility]ology [facility] [address] [place] [phone] Gerri Peterson MD [address] [place] [address] Medication Management (Requesting RX for [...] In the past 12 months has th [facility], oil, or [employer] threatened to shut off services in your [...] Pt called. States he was discharged from [facility] on 10/17 with instructions to contact PCP to start Rx Torsemide 20 mg one tablet a day. PCP is out of town and was advised by cleaning manager in office to contact gastro MD to obtain Rx. Pt states he is retaining 30 pounds of fluid and needs MD to send a prescription or return call dali. Pt can be reached at [phone] documented in this encounter Plan of [...] documented as of this encounter Care Teams Arabic Professor Relationship Specialty Start Date End Date Enedina Mcguire NP [address] [place] [address] PCP - General Internal Medicine 10/05/24 Maureen Pantoja, RN Txp Post Coordinator Transplant Hepatology 10/28/24 documented as of this encounter
--- OUTSIDE RECORDS SUMMARY | 2024-12-31 09:43 | XMS_ITS | Encounter Summary ---
Author Organization [facility] Address [address] [place] [address] Care Team Providers Care Hamper Maker Machine Name Role Phone Enedina Mcguire NP Primary Care Provider + [phone] Maureen Pantoja RN Unavailable Unavail able Source [...] release of HIV test results or diagnoses. [id number] Health Encounter Details Date Type Department Care Team (Late st Contact Info) Description 11/10/2024 Orders Only [facility] Liver Transplant at [address] [place] [phone] Maureen Pantoja, ЮЛИЯ Liver transplant recipient ([facility]) (Primary Dx); Kidney transplant recipient; Immunosuppressive management encounter following liver transplant ([facility] [...] Recorded In the past 12 months has [employer], gas, oil, or water [employer] threatened to shut off services in [...] documented as of this encounter Care Teams Hamper Maker Machine Relationship Specialty Start Date End Date Enedina Mcguire NP [address] [place] [address] PCP - General Internal Medicine 10/05/24 Maureen Pantoja RN Txp Post Coordinator Transplant Hepatology 10/28/24 documented as of this encounter
--- OUTSIDE RECORDS SUMMARY | 2024-12-31 09:43 | XMS_ITS | Encounter Summary ---
Author Organization [facility] Address [address] [place] [address] Care Team Providers Care Credit Authorizer Name Role Phone Enedina Mcguire NP Primary Care Provider + [phone] Maureen Pantoja RN Unavailable Unavail able Source [...] release of HIV test results or diagnoses. [id number] Health Encounter Details Date Type Department Care Team (Late st Contact Info) Description 12/04/2024 Telephone [facility] Liver Transplant at [address] [address] Marlene Ro MA Social History [...] Recorded In the past 12 months has [email or web address], gas, oil, or water [employer] threatened to shut off services in your [...] I transferred the call andadvised pt to [facility] if no answer. He called [...] documented as of this encounter Care Teams Credit Authorizer Relationship Specialty Start Date End Date Enedina Mcguire NP [address] [place] [address] PCP - General Internal Medicine 10/05/24 Maureen Pantoja, RN Txp Post Coordinator Transplant Hepatology 10/28/24 documented as of this encounter
--- OUTSIDE RECORDS SUMMARY | 2024-12-31 09:44 | XMS_ITS | Encounter Summary ---
Author Organization [facility] Address [address] [place] [address] Care Team Providers Care Suture Polisher Name Role Phone Enedina Mcguire NP Primary Care Provider + [phone] Maureen Pantoja RN Unavailable Unavail able Source [...] release of HIV test results or diagnoses. [id number] Health Encounter Details Date Type Department Care Team (Late st Contact Info) Description 12/04/2024 Telephone [facility] Liver Transplant at [address] [place] [phone] Kaylin Willard MSW Social History Tobacco [...] Recorded In the past 12 months has [employer], gas, oil, or water [employer] threatened to shut off services in [...] prior to transplant and completed treatment with [facility]. SW called and spoke to [...] meets with a counselor weekly and an MAORI LIAISON ADVISER. He has spoke with his MAORI LIAISON ADVISER and is interested in Naltrexone to help reduce cravings. He will require a letter from our teamto confirm he is able to take Naltrexone, SW to coordinate with RN coordinator. SW reviewed concerns for alcohol use post-transplant and patient was aware and agreeable. Patient to meet with MEREDITH and transplant CD counselor at next clinic appointment for additional support/follow-up. 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
--- OUTSIDE RECORDS SUMMARY | 2024-12-31 09:44 | XMS_ITS | Encounter Summary ---
Author Organization [facility] Address [address] [place] [address] Care Team Providers Care Contract Negotiator Name Role Phone Enedina Mcguire NP Primary Care Provider + [phone] Maureen Pantoja RN Unavailable Unavail able Source [...] release of HIV test results or diagnoses. [id number] Health Encounter Details Date Type Department Care Team (Late st Contact Info) Description 12/04/2024 Chart Note [facility] Liver Transplant at [address] [place] [phone] Marlene Ro MA FK Pending-12/04 Social History [...] In the past 12 months has [employer], gas, oil, or water [employer] threatened to shut off services in your [...] Tacrolimus level (12/04/2024 7:47 AM EDT) Pathologist [facility] Tacrolimus Lvl 7.5 6 - 15 ng/mL Whole Blood Narrative Resulting Agency Comment [facility] Historical Provider LAB BLOOD ORDERABLES Denisse l Result * (ABNORMAL) Magnesium (12/04/2024 7:47 AM EDT) Pathologist [facility] Magnesium 1.2(A) 1.6 - 2.4 mg/dL Plasma Narrative Resulting Agency Comment [facility] us Historical Provider LAB BLOOD [...] 5.0 g/dL Blood Narrative Resulting Agency Comment [facility] Result [facility] MD LAB BLOOD ORDERABLES Denisse l Result * Protime-INR (12/04/2024 7:47 AM EDT) [facility] INR 0.99 0.9 - 1.1 Plasma Narrative Resulting Agency Comment [facility] Result [facility] LAB BLOOD ORDERABLES Denisse l Result * (ABNORMAL) CBC and differential (12/04/2024 7:47 AM EDT) [facility] Hemoglobin 10.7(A) 13.5 - 17.5 g/dL Hematocrit [...] 6.5 10^3/mL Blood Narrative Resulting Agency Comment [facility] Result [facility] LAB BLOOD ORDERABLES Denisse l Result * (ABNORMAL) Hepatic Function Panel (12/04/2024 7:47 AM EDT) [facility] Bilirubin, Direct 0.5 Bilirubin, Indirect 0.2 Alkaline Phosphatase 102 U/L ALT 14 U/L AST 15 U/L Total Bilirubin 0.7 0.1 - 1.4 mg/dL Total Protein 5.8(A) 6.4 - 8.2 g/dL Plasma Narrative Resulting Agency Comment [facility] us Historical Provider LAB BLOOD ORDERABLES Denisse l Result documented in this encounter Visit Diagnoses Not on filedocumented in this encounter Additional Health Concerns Infection Onset Date Last Indicated Resolved Time 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
--- OUTSIDE RECORDS SUMMARY | 2024-12-31 09:44 | XMS_ITS | Encounter Summary ---
Author Organization [facility] Address [address] [place] [address] Care Team Providers Care Heavy Equipment Plumbing Supervisor Name Role Phone Enedina Mcguire NP Primary Care Provider + [phone] Maureen Pantoja RN Unavailable Unavail able Source [...] release of HIV test results or diagnoses. [id number] Reason for Visit * Reason Comments Results Encounter Details Date Type Department Care Team (Riky st Contact Info) Description 11/21/2024 Telephone [facility] Liver Transplant at [address] [phone] Maureen Pantoja, RN Results Social [...] In the past 12 months has [employer], gas, oil, or water [employer] threatened to shut off services in [...] repeating labs at tomorrow. Will follow-up. * Marueen Pantoja RN - 11/21/2024 8:51 AM EDT [...] documented as of this encounter Care Teams Heavy Equipment Plumbing Supervisor Relationship Specialty Start Date End Date Enedina Mcguire NP [address] [place] [address] PCP - General Internal Medicine 10/05/24 Maureen Pantoja, RN Txp Post Coordinator Transplant Hepatology 10/28/24 documented as of this encounter
--- OUTSIDE RECORDS SUMMARY | 2024-12-31 09:44 | XMS_ITS | Encounter Summary ---
Author Organization [facility] Address [address] [place] [address] Care Team Providers Care Engineering Design Manager Name Role Phone Enedina Mcguire NP Primary Care Provider + [phone] Maureen Pantoja RN Unavailable Unavail able Source [...] release of HIV test results or diagnoses. [id number] Reason for Visit * Reason Comments Results Encounter Details Date Type Department Care Team (Late st Contact Info) Description 12/04/2024 Telephone [facility] Liver Transplant at [address] [address] Maureen Pantoja, RN Results Social [...] In the past 12 months has e [employer], gas, oil, or water [employer] threatened to shut off services in your [...] 7.5 Patient to repeat labs tomorrow at [facility] Lab prior to Liver and Hepatorenal clinic [...] as of this encounter Care Teams Engineering Design Manager Relationship Specialty Start Date End Date Enedina Mcguire NP [address] [place] [address] PCP - General Internal Medicine 10/05/24 Maureen Pantoja, RN Txp Post Coordinator Transplant Hepatology 10/28/24 documented as of this encounter
--- OUTSIDE RECORDS SUMMARY | 2024-12-31 09:44 | XMS_ITS | Encounter Summary ---
Author Organization [facility] Address [address] [place] [address] Care Team Providers Care Private Mortgage Banker Safe Name Role Phone Enedina Mcguire NP Primary Care Provider + [phone] Maureen Pantoja RN Unavailable Unavail able Source [...] release of HIV test results or diagnoses. [id number] Health Encounter Details Date Type Department Care Team (Late st Contact Info) Description 11/24/2024 Orders Only [facility] Liver Transplant at [address] [place] [address] Maureen Pantoja, RN Social History Tobacco Use [...] Recorded In the past 12 months has [employer], gas, oil, or water [employer] threatened to shut off services in your [...] documented as of this encounter Care Teams Private Mortgage Banker Safe Relationship Specialty Start Date End Date Enedina Mcguire NP [address] [place] [address] PCP - General Internal Medicine 10/05/24 Maureen Pantoja, ЮЛИЯ Txp Post Coordinator Transplant Hepatology 10/28/24 documented as of this encounter
--- OUTSIDE RECORDS SUMMARY | 2024-12-31 09:44 | XMS_ITS | Encounter Summary ---
Author Organization [facility] Address [address] [place] [address] Care Team Providers Care History Teacher Name Role Phone Enedina Mcguire NP Primary Care Provider + [phone] Maureen Pantoja RN Unavailable Unavail able Source [...] release of HIV test results or diagnoses. [id number] Health Encounter Details Date Type Department Care Team (Late st Contact Info) Description 11/21/2024 Orders Only [facility]rology at [facility] [address] [facility] [address] [place] [address] Vasile Gordillo MA Social History [...] In the past 12 months has [employer], gas, oil, or water [employer] threatened to shut off services in your [...] documented as of this encounter Care Teams History Teacher Relationship Specialty Start Date End Date Enedina Mcguire NP [address] [place] [address] PCP - General Internal Medicine 10/05/24 Maureen Pantoja, ЮЛИЯ Txp Post Coordinator Transplant Hepatology 10/28/24 documented as of this encounter
[2024-12-31 09:45] LABS: Microscopic, Urine URINE MICROSCOPIC (MICROSCOPIC)
--- OUTSIDE RECORDS SUMMARY | 2024-12-31 09:46 | XMS_ITS | Encounter Summary ---
Author Organization [facility] Address [address] [place] [address] Care Team Providers Care Wing Scorer Name Role Phone Enedina Mcguire APRN Primary Care Provider + Reason for Visit * Reason Comments Med Refill Encounter Details Date Type Department Care Team (Late st Contact Info) Description 09/12/2022 Refill [facility] GASTROENTEROLOGY [address] [facility] [address] [place] [address] Lj Tapia APRN [address] [place] [address] Social History Tobacco Use Types Packs/Day Years [...] or training? Not on file Preferred Language Occitan 07/03/2022 Sex and Gender Information Value Date Recorded Sex Assigned at Male 08/20/2024 8:28 PM EDT Legal Sex Male 7:45 AM EDT Gender Identity Not on file Sexual Orientation Not on file documented as of this encounter Plan of Treatment Upcoming Encounters Date Type Department Care Team (Late st Contact Info) Description 01/01/2025 2:15 PM EDT Office Visit [facility] PAIN MANAGEMENT [address] [address] Vazuqez Christie PA-C [address] [place] [address] documented as of this encounter Visit Diagnoses Not on filedocumented in this encounter Care Teams Wing Scorer Relationship Specialty Start Date End Date Enedina Mcguire APRN [address] [place] [address] PCP - General Nurse Practitioner 10/27/24 documented as of this encounter
--- OUTSIDE RECORDS SUMMARY | 2024-12-31 09:46 | XMS_ITS | Encounter Summary ---
Author Organization [facility] Address [address] [place] [address] Care Team Providers Care Pants Presser Automatic Name Role Phone Enedina Mcguire NP Primary Care Provider + [phone] Maureen Pantoja RN Unavailable Unavail able Source [...] release of HIV test results or diagnoses. [id number] Health Encounter Details Date Type Department Care Team (Late st Contact Info) Description 11/20/2024 Refill [facility] Liver Transplant at [address] [place] [phone] Maureen Pantoja, RN Social History Tobacco Use [...] Recorded In the past 12 months has [email or web address], gas, oil, or water [employer] threatened to shut off services in your [...] documented as of this encounter Care Teams Pants Presser Automatic Relationship Specialty Start Date End Date Enedina Mcguire NP [address] [place] [address] PCP - General Internal Medicine 10/05/24 Maureen Pantoja, ЮЛИЯ Txp Post Coordinator Transplant Hepatology 10/28/24 documented as of this encounter
--- OUTSIDE RECORDS SUMMARY | 2024-12-31 09:46 | XMS_ITS | Encounter Summary ---
Author Organization [facility] Address [address] [place] [address] Care Team Providers Care Cardiology Clinical Nurse Specialist Name Role Phone [place], Lj Nova APRN Unavailable [phone] Enedina Mcguire APRN Primary Care Provider + Encounter Details Date Type Department Care Team ([facility] st Contact Info) Description 11/27/2024 Telephone [facility] Nephrology, Bone & Mineral Metabolism [address] [facility] [place] [address] Chelsy Villanueva Social History Tobacco [...] often do you attend chur ch or hindu services? Patient unable to answer 07/14/2024 Do [...] Patient Health Questionnaire-2 Score 2 09/29/2024 [facility] - Occupational Stress Questionnaire Answer [...] drink first t deborah in the morning (EYE-SECURITY SYSTEMS INTEGRATOR) to steady your nerves or to get [...] now s/p transplant can follow with transplant commercial food instructor, please cancel appt. documented in this encounter Plan of Treatment Upcoming Encounters Date Type Department Care Team (Late st Contact Info) Description 01/08/2025 3:20 PM EDT [facility] [place] [address] [facility] [place] [phone] Vincent Braga MD [address] [place] [address] documented as of this encounter Visit Diagnoses [...] as of this encounter Care Teams Cardiology Clinical Nurse Specialist Relationship Specialty Start Date End Date Enedina Mcguire APRN [address] [place] [address] PCP - General 12/04/22 Lj Tapia APRN [address] [place] [address] Referring Physician Gastroenterology 07/18/22 documented as of this encounter
--- OUTSIDE RECORDS SUMMARY | 2024-12-31 09:46 | XMS_ITS | Clinical Summary ---
Author Organization [facility] Address [address] [place] [address] Care Team Providers Care Dump Truck Driver Name Role Phone Enedina Mcguire APRN [...] Type Department Care Team Description 12/12/2024 Refill [facility] [address] [place] [address] Enedina Mcguire APRN Acquired hypothyroidism; Secondary esophageal varices without bleeding 12/05/2024 Telephone [facility]NAG[facility] [address] [place] [address] Vazquez Christie PA-C 12/04/2024 2:55 PM EDT Lab [facility] [place] [address] [facility] [address] [place] [address] Therapeutic drug monitoring 12/04/2024 2:15 PM EDT Office Visit [facility] 3000 [facility] [address] [place] [address] Vazquez Christie PA-C Cervical radiculopathy (Primary Dx); Long-term use of high-risk medication; Cervical pain (neck); Cervical spondylosis without myelopathy; Therapeutic drug monitoring; Chronic pain syndrome 12/04/2024 Travel 10/27/2024 Telephone [facility] [address] [place] [phone] Enedina Mcguire, SALT GRINDER CALLBACK 10/22/2024 2:15 PM EDT Office Visit [facility] [address] [address] Vazquez Christie PA-C Cervical radiculopathy (Primary Dx); Cervical spondylosis without myelopathy; Cervical pain (neck); Long-term use of high-risk medication; Therapeutic drug monitoring 10/22/2024 Travel 10/21/2024 Telephone [facility] [address] [place] [phone] Enedina Mcguire, SALT GRINDER New Med Request 10/20/2024 Telephone [facility] [address] [phone] BURGESS - RX REFILL 10/20/2024 Telephone [facility] [address] [place] [phone] Enedina Mcguire, SALT GRINDER Med Management 10/20/2024 Refill [facility] [address] [place] [address] Enedina Mcguire, SALT GRINDER Hepatic encephalopathy; Acquired hypothyroidism; Secondary esophageal varices without bleeding 10/17/2024 Telephone [facility] [address] [place] [phone] Enedina Mcguire, SALT GRINDER 10/07/2024 Results Follow-Up [facility] [address] [place] [phone] Enedina Mcguire, SALT GRINDER 10/07/2024 Results Follow-Up [facility] [address] [place] [phone] Enedina Mcguire, SALT GRINDER from Last 3 Months Immunizations Immunization Administration [...] alcohol) 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 [facility] Utilities Answer Date Recorded In the past 12 months has [employer], oil, or water [employer] threatened to shut off services in [...] Brief Depression Severity Measure Score 0 10/02/2022 [facility] - [...] GED or equivalent No 07/09/2024 Preferred Language Chinese 07/09/2024 PHQ-2 Answer Date Recorded Patient Health [...] Description 01/01/2025 2:15 PM EDT Office Visit [facility] PAIN [facility]GEMENT [address] [facility] [address] [place] [address] Vazquez Christie PA-C [address] [facility] [address] [place] [phone] Health Maintenance Due Date Last Done Comments [...] 0-49 Discontinued Medical Devices Implanted Type Area Mainframe Programmer Device Identifier Shelf Expiration Date Model / Serial / Lot Coil Concerto Pgla Hel Detach Sys 10mm 30cm - [id number] Implanted:Qty: 1 on 07/03/2022 by Timmy Brunner MD at [facility] Implant Left: Vein EV3 A [employer]OV[employer]civis [id number] / / [id number] Description:Coil is in the s hort gastric vein Coil Concerto Nyl Hampton Detach Sys 10mm 30cm - [id number] Implanted:Qty: 1 on 07/03/2022 by Timmy Brunner MD at [facility] Implant Left: Vein EV3 A [employer] [id number] / / [id number] Description:Short gastric ve in Coil Concerto Nyl Hampton Detach Sys 10mm 30cm - [id number] Implanted:Qty: 1 on 07/03/2022 by Timmy Brunner MD at [facility] Implant Left: Vein EV3 A [employer] [id number] / / [id number] Description:Short gasrtic ve in Coil Concerto Nyl Hampton Detach Sys 10mm 30cm - [id number] Implanted:Qty: 1 on 07/03/2022 by Timmy Brunner MD at [facility] Implant Left: Vein EV3 A [employer] [id number] / / [id number] Description:Short gastric ve in Coil Concerto Nyl Hampton Detach Sys 8mm 30cm - [id number] Implanted:Qty: 1 on 07/03/2022 by Timmy Brunner MD at [facility] Implant Left: Vein EV3 A [employer] [id number] / / [id number] Description:Short gastric ve in Coil Concerto Nyl Hampton Detach Sys 8mm 30cm - [id number] Implanted:Qty: 1 on 07/03/2022 by Timmy Brunner MD at [facility] Implant Left: Vein EV3 A [employer]EN [employer] [id number] / / [id number] Description:Short gastric ve in Sys Del Liq Emb Trufill Nbca 1g Vl - [id number] Implanted:Qty: 1 on 07/03/2022 by Timmy Brunner MD at [facility] Implant Left: Vein [facility] [id number] / / [id number] Description:Short gastric ve in Plug Vasc Anton Emb Ampltz .027 0fb1y46ah - [id number] Implanted:Qty: 1 on 07/03/2022 by Timmy Brunner MD at [facility] Implant Left: Vein [employer] [id number] / / [id number] Description:Coronary vein Coil Concerto Nyl Hampton Detach Sys 8mm 30cm - [id number] Implanted:Qty: 1 on 07/03/2022 by Timmy Brunner MD at [facility] Implant Left: Vein EV3 A [employer] CO [id number] / / [id number] Description:CORONARY VEIN Gelatin Emb Embocube 5.02mm 50mg Red - [id number] Implanted:Qty: 1 on 07/03/2022 by Timmy Brunner MD at [facility] Implant Left: Vein [employer] [id number] / / [id number] Description:SHORT GASTRIC VE IN Coil Emb Dona 3.7/Lp .035in 14cm 12mm - [id number] Implanted:Qty: 1 on 07/03/2022 by Timmy Brunner MD at [facility] Implant Left: Vein COOK [id number] / / [id number] Description:SHORT GASTRIC VE IN Coil Concerto Pgla Hampton Detach Sys 12mm 30cm - [id number] Implanted:Qty: 1 on 07/03/2022 by Timmy Brunner MD at [facility] Implant Left: Vein EV3 A COVID[employer]epper[employer] [id number] / / [id number] Description:Short gastric ve in Coil Concerto Nyl Hampton Detach Sys 8mm 30cm - [id number] Implanted:Qty: 1 on 07/03/2022 by Timmy Brunner MD at [facility] Implant Left: Vein EV3 A COVIDIEN CO [id number] / / [id number] Description:SHORT GASTRIC VE IN Coil Concerto Nyl Hampton Detach Sys 8mm 30cm - [id number] Implanted:Qty: 1 on 07/03/2022 by Timmy Brunner MD at [facility] Implant Left: Vein EV3 A [employer] [id number] / / [id number] Description:Short gastric ve in Coil Concerto Nyl Hampton Detach Sys 8mm 30cm - [id number] Implanted:Qty: 1 on 07/03/2022 by Timmy Brunner MD at [facility] Implant Left: Vein EV3 A [employer] [id number] / / [id number] Description:Short gastric ve in Coil Concerto Pgla Hel Detach Sys 14mm 40cm - [id number] Implanted:Qty: 1 on 07/03/2022 by Timmy Brunner MD at [facility] Implant Left: Vein EV3 A [employer] [id number] / / [id number] Description:Short gastric ve in Coil Concerto Pgla Hel Detach Sys 14mm 40cm - [id number] Implanted:Qty: 1 on 07/03/2022 by Timmy Brunner MD at [facility] Implant Left: Vein EV3 A [employer] [id number] / / [id number] Description:Short gastric ve in Coil Concerto Pgla Hampton Detach Sys 14mm 30cm - [id number] Implanted:Qty: 1 on 07/03/2022 by Timmy Brunner MD at [facility] Implant Left: Vein EV3 A [employer] [id number] / / [id number] Description:Short gastric ve in Coil Concerto Pgla Hampton Detach Sys 14mm 30cm - [id number] Implanted:Qty: 1 on 07/03/2022 by Timmy Brunner MD at [facility] Implant Left: Vein EV3 A [employer] CO [id number] / / [id number] Description:Short gastric ve in Coil Concerto Pgla Hampton Detach Sys 14mm 30cm - [id number] Implanted:Qty: 1 on 07/03/2022 by Timmy Brunner MD at [facility] Implant Left: Vein EV3 A [employer] [place] [id number] / / [id number] Description:Short gastric ve in Procedures Procedure Name [...] - IMAGING 10/05/2024 SCANNED - IMAGING 10/03/2024 HEPATITIS PANEL, ACUTE Add-On 07/08/2024 10:33 PM EST LIPID PANEL Routine 10/15/2023 4:16 PM EDT Mixed hyperlipidemia from Last 3 Months or Most Recently Relevant to Health Maintenance Results * LABS SCANNED (12/08/2024) Only the most recent of25 resultswithin the time period is included. Enedina Mcguire SALT GRINDER LAB BLOOD ORDERABLES Fin al Result * (ABNORMAL) Urine Drug Screen - Urine, Clean Catch (12/04/2024 2:50 PM EDT) THC, Screen, Urine Positive(A) Negative 12/04 8:32 PM EDT [facility] Phencyclidine (PCP), Urine Negative Negative 12/04/2024 8:32 PM EDT [facility] Cocaine Screen, Urine Negative Negative 12/04/2024 8:32 PM EDT [facility] Methamphetamine, Ur Negative Negative 12/04/2024 8:32 PM EDT [facility] Opiate Screen Positive(A) Negative 12/04/2024 8:32 PM EDT [facility] Amphetamine Screen, Urine Negative Negative 12/04/2024 8:32 PM EDT [facility] Benzodiazepine Screen, Urine Negative Negative 12/04/2024 8:32 PM EDT [facility] Tricyclic Antidepressants Screen Negative Negative 12/04/2024 8:32 PM EDT [facility] Methadone Screen, Urine Negative Negative 12/04/2024 8:32 PM EDT [facility] Barbiturates Screen, Urine Negative Negative 12/04/2024 8:32 PM EDT [facility] Oxycodone Screen, Urine Negative Negative 12/04/2024 8:32 PM EDT [facility] Buprenorphine, Screen, Urine Negative Negative 12/04/2024 8:32 PM EDT [facility] Urine Urine specimen obtained by clean catch procedure / Unknown Collection / Unknown 12/04/2024 2:50 PM EDT 12/04/2024 2:54 PM EDT [facility] - 12/04/2024 8:32 PM EDT [...] particularly when unconfirmed results are used. us Cassel Otilio Christie PA-C URINE ORDERABLES Final R esult [facility]
[address] [place] [address], * Fentanyl, Urine - Urine, Clean Catch (12/04/2024 2:50 PM EDT) Fentanyl, Urine Negative Negative 12/04/2024 9:15 PM EDT [facility] Urine Urine specimen obtained by clean catch procedure / Unknown Collection / Unknown 12/04/2024 2:50 PM EDT 12/04/2024 2:54 PM EDT Narrative [facility] - 12/04/2024 9:15 PM EDT Negative [...] Christie PA-C URINE ORDERABLES Final R esult [facility]
[address] [place] [address], * IMAGING SCANNED (10/17/2024) Only the most recent of5 resultswithin the time period is included. Anatomical Region Laterality Modality Radiographic Rachel ging Enedina Mcguire SALT GRINDER IMG DIAGNOSTIC IMAGING O RDERABLES Final Result from Last 3 Months Insurance [facility] Advance Directives * CPR (Attempt [...] Of Support Discussed With: Patient Care Teams Dump Truck Driver Relationship Specialty Start Date End Date Enedina Mcguire APRN [address] [place] [address] PCP - General Nurse Practitioner 10/27/24
--- OUTSIDE RECORDS SUMMARY | 2024-12-31 09:46 | XMS_ITS | Encounter Summary ---
[facility] Address [address] [place] [address] Care Team Providers Care Umbrella Tipper Machine Name Role Phone Enedina Mcguire APRN Primary Care Provider + Encounter Details Date Type Department Care Team ([facility] st Contact Info) Description 10/07/2024 Results Follow-Up [facility] [address] [place] [address] Enedina Mcguire APRN [address] [place], [place] [id number] Social History Tobacco Use Types Packs/Day Years Used Date Smoking Tobacco: Former Cigarettes 4 20 Passive Smoke Exposure: Past Smokeless Tobacco: Current Comments:MARIJUANA USE ABOUT 2X PER WEEK - reports no use 08-05-2024 Alcohol Use Standard Drinks/Week Comments Not Currently 0 (1 standard drink = 0.6 oz pure alcohol) 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 [facility] Utilities Answer Date Recorded In the past 12 months has [employer], [employer], oil, or water [employer] threatened to shut off services in [...] GED or equivalent No 07/09/2024 Preferred Language Sierra Leonean 07/09/2024 PHQ-2 Answer Date Recorded Patient Health [...] [facility] [address] [address] Vazquez Christie PA-C [address] [place] [address] documented as of this encounter Visit Diagnoses Not on filedocumented in this encounter Additional Health Concerns Assessment Noted Time PHQ-2 Depression Total Score: 1 12/31/19 24 3:25 PM EDT documented as of this encounter Care Teams Umbrella Tipper Machine Relationship Specialty Start Date End Date Enedina Mcguire APRN [address] [place] [address] PCP - General Nurse Practitioner 10/27/24 documented as of this encounter
--- OUTSIDE RECORDS SUMMARY | 2024-12-31 09:46 | XMS_ITS | Encounter Summary ---
Author Organization Healthcare Address [address] [place] [address] Care Team Providers Care Administrative Services Specialist Name Role Phone Jony Conde MD Primary Care Provider [phone] Lj Tapia HEARING IMPAIRED TEACHER Unavailable [phone] Enedina Mcguire HEARING IMPAIRED TEACHER Primary Care Provider + Nuria Fall GRANITE INSTALLER Unavailable Unavaila ble Encounter Details Date Type Department Care Team (Late st Contact Info) Description 07/03/2022 Orders Only External Location [address] [place] [address] Presley Montes De Oca MD [address] [facility] [address] [place], [place] [id number] Social History Tobacco Use Types Packs/Day Years [...] PM EDT [facility] [address], [address] [address] Vincent Braga MD [address] [facility] [phone] documented as of this encounter Procedures Procedure [...] on filedocumented in this encounter Care Teams Administrative Services Specialist Relationship Specialty Start Date End Date Jony Conde MD [address] [place] [address] [address] [id number] PCP - General 07/18/22 12/03/22 Enedina Mcguire APRN [address] [place] [address] PCP - General 12/04/22 Lj Tapia APRN [address] [place] [address] Referring Physician Gastroenterology 07/18/22 Nuria Fall LPN [facility] TCM Nurse 07/24/24 08/23/24 documented as of this encounter
--- OUTSIDE RECORDS SUMMARY | 2024-12-31 09:46 | XMS_ITS | Encounter Summary ---
[facility] Address [address] [place] [address] Care Team Providers Care Color Drum Worker Name Role Phone Enedina Mcguire APRN Primary Care Provider + Encounter Details Date Type Department Care Team ([facility] st Contact Info) Description 10/07/2024 Results Follow-Up [facility] INTER[facility] MEDICINE [address] [place] [address] Enedina Mcguire APRN [address] [place], [place] [id number] Social History Tobacco Use Types Packs/Day Years Used Date Smoking Tobacco: Former Cigarettes 4 20 Passive Smoke Exposure: Past Smokeless Tobacco: Current Comments:MARIJUANA USE ABOUT 2X PER WEEK - reports no use 08-05-2024 Alcohol Use Standard Drinks/Week Comments Not Currently 0 (1 standard drink = 0.6 oz pure alcohol) 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 [facility] Utilities Answer Date Recorded In the past 12 months has [employer], [employer], oil, or water [employer] threatened to shut off services in your [...] Depression Severity Measure Score 0 10/02/2022 [facility] Occupat ional [...] GED or equivalent No 07/09/2024 Preferred Language Iranian 07/09/2024 PHQ-2 Answer Date Recorded Patient Health [...] Description 01/01/2025 2:15 PM EDT Office Visit [facility] PAIN [facility]EMENT [address] [address] Vazquez Christie PA-C [address] [place] [address] documented as of this encounter Visit Diagnoses Not on filedocumented in this encounter Additional Health Concerns Assessment Noted Time PHQ-2 Depression Total Score: 1 12/31/19 24 3:25 PM EDT documented as of this encounter Care Teams Color Drum Worker Relationship Specialty Start Date End Date Enedina Mcguire APRN [address] [place] [address] PCP - General Nurse Practitioner 10/27/24 documented as of this encounter
--- OUTSIDE RECORDS SUMMARY | 2024-12-31 09:46 | XMS_ITS | Encounter Summary ---
Author Organization Healthcare Address [address] [place] [address] Care Team Providers Care Smelter Charger Name Role Phone Jony Conde MD Primary Care Provider [phone] Lj Tapia AIR QUALITY ENGINEER Unavailable [phone] Enedina Mcguire AIR QUALITY ENGINEER Primary Care Provider + Nuria Fall WALL WORKER Unavailable Unavaila ble Encounter Details Date Type Department Care Team (Late st Contact Info) Description 07/04/2022 Orders Only External Location [address] [place] [address] Presley Montes De Oca MD [address] [facility] [address] [place], [place] [phone] Social History Tobacco Use Types Packs/Day Years [...] PM EDT [facility] [address], [address] [place] [address] Vincent Braga MD [address] [facility] [address] [place] [phone] documented as of this encounter Procedures Procedure [...] on filedocumented in this encounter Care Teams Smelter Charger Relationship Specialty Start Date End Date Jony Conde MD [address] [place] [address] [address] [place] [address] PCP - General 07/18/22 12/03/22 Enedina Mcguire APRN [address] [place] [address] PCP - General 12/04/22 Lj Tapia APRN [address] [place] [address] Referring Physician Gastroenterology 07/18/22 Nuria Fall LPN [facility] TCM Nurse 07/24/24 08/23/24 documented as of this encounter
--- OUTSIDE RECORDS SUMMARY | 2024-12-31 09:46 | XMS_ITS | Clinical Summary ---
Author Organization Healthcare Address [address] [place] [address] Care Team Providers Care Solar Energy Specialist Name Role Phone Lj Tapia Rohini RICKS Unavailable [phone] Enedina Mcguire APRN Primary Care Provider + [...] thyroid gland 03/19/2024 GERD (gastroesophageal reflux disease) 4 History of transfusion 03/19/2024 Hyperlipidemia 03/19/2024 Liver [...] Type Department Care Team Description 11/27/2024 Telephone [facility] Mineral Met[facility] [address] [facility], [address] [place] [address] Chelsy Villanueva from Last 3 [...] 07/14/2024 How often do you attend [facility] or gnosticist services? Patient unable to answer 07/14/2024 Do you belong to any clubs o r organizations such as mandaeism groups, unions, fraternal or athletic groups, or [...] Recorded Patient Health Questionnaire-2 Score 2 09/29/2024 [facility] Questionnaire Answer Date [...] drink first t deborah in the morning (EYE-LOG STACKER OPERATOR) to steady your nerves or to get rid of a hangover? 0 07/19/2024 CAGE Questionnaire Score 2 025 Utilities Answer Date Recorded In the past 12 months has th [employer] electric, gas, oil, or water company threatened [...] Upcoming Encounters Date Type Department Care Team ([facility] st Contact Info) Description 01/08/2025 3:20 PM EDT Office Visit [facility] [place] [address] [facility] [place] [address] Vincent Braga MD [address] [place] [address] Health Maintenance Due Date Last [...] 2 - 13+ 2-dose series) 10/11/2010 09/13/2010 [id number] Vaccine ( season) 2024 03/17/2021, 07/25/2020, 06/27/2020 [...] this topic Medical Devices Implanted Type Area Desk Lieutenant Device Identifier Shelf Expiration Date Model / Serial / Lot Concerto Merced Coil-07/03/2022 Implanted:06/15 by Timmy Brunner MD (Quantity not on file) Coil Abdomen Description:Multiple Coil Co ncerto Pgla Merced Detach COILS implanted on 07/03/2022 by Timmy Brunner MD at [facility]--info can be found in Care Everywhere for [facility] as of 11/15/23 Dona Coil-07/03/2022 Implanted:06/15 by Timmy Brunner MD (Quantity not on file) Coil Abdomen [employer] Description:Coil Emb Dona 3.7/Implanted: Qty: 1 on 07/03/2022 by Timmy Brunner MD at [facility] Plate Plate N/A: Neck Plug Vasc Anton Emb Amplatzer Implanted:06/15 by Timmy Brunner MD (Quantity not on file) Plug Other Vein / / [id number] Description:Plug Vasc Anton Em b Ampltz .027 [id number] - [id number] Implanted: Qty: 1 on 07/03/2022 by Timmy Brunner MD at [facility] Stent Gastro Panc 5fr 5cm - [id number] Implanted:Qty: 1 on 11/20/2023 by Devang Mcghee, ЮЛИЯ at [facility] Pancreas [id number] 08/13/2026 [id number] / / [id number] Procedures Procedure Name Priority Date/Time Associated Diagnosis Comments HEPATITIS C ANTIBODY W/REFLEX TO HCV QUANT PCR STAT 07/14/2024 4:31 PM EST HIV 1/2 ANTIBODY/ANTIGEN SCREEN WITH REFLEX TO HIV I/II DIFFERENTIATION STAT 07/14/2024 4:31 PM EST from Last 3 Months or Most Recently Relevant to Health Maintenance Results * HIV 1 & 2 Antibody/Antigen Screen (07/14/2024 4:31 PM EST) Pathologist [facility] HIV 1 & 2 Antibody/Antigen Screen Non [...] ORDERA BLES Final Result Performing Organization Address City/[facility] Co de Phone Number [facility] [address] [place] [address] * Hepatitis C Antibody (07/14/2024 4:31 PM EST) Pathologist [facility] Hepatitis C Antibody Negative Negative 07/14/2024 5:27 PM EST [facility] Blood Venous blood specimen / Unknown Venipuncture / Unknown 07/14/2024 4:31 PM EST 07/14/2024 4:54 PM EST Laureano Salinas APRN, DNP LAB BLOOD ORDERA BLES Final Result [facility] [address] [place] [address] from Last 3 Months or Most Recently Relevant to Health Maintenance Insurance [facility] Advance Directives * Full Code (Latest Code Status on File) Date Activated Date Inactivated Comments 07/11/2024 11:04 PM 07/23/2024 6:27 PM Question Answer Comments Patient has decision-making capacity? Yes * Full Code Date Activated Date Inactivated Comments 11/14/2023 10:15 PM 11/27/2023 9:08 PM Question Answer Comments Patient has decision-making capacity? Yes Care Teams Solar Energy Specialist Relationship Specialty Start Date End Date Enedina Mcguire APRN [address] [place] [address] PCP - General 12/04/22 Lj Tapia APRN [facility] [place] [address] Referring Physician Gastroenterology 07/18/22
--- OUTSIDE RECORDS SUMMARY | 2024-12-31 09:46 | XMS_ITS | Encounter Summary ---
Author Organization [facility] Address [address] [place] [address] Care Team Providers Care Housemaid Name Role Phone Enedina Mcguire NP Primary Care Provider + [phone] Maureen Pantoja RN Unavailable Unavail able Source [...] release of HIV test results or diagnoses. [id number] Health Encounter Details Date Type Department Care Team (Late st Contact Info) Description 11/20/2024 Orders Only [facility] Liver Transplant at [address] [place] [phone] Maureen Pantoja, ЮЛИЯ S/P liver transplant (CMS-HCC) (Primary Dx); Immunosuppression ([facility]-HCC); Viral disease exposure; Alcohol use Social History [...] Recorded In the past 12 months has [employer], gas, oil, or water [employer] threatened to shut off services in your [...] Cutoff: 10 ng/mL 11/28/2024 8:24 AM EDT [facility] Comment: Phosphatidylethanol (PEth) homologues result interpretation [...] Cutoff: 10 ng/mL 11/28/2024 8:24 AM EDT [facility] Comment: PEth 16:0/18:2 (PLPEth) Reference ranges are not well established PEth Interpretation Positive. 11/28 8:24 AM T [facility] Comment: ADDITIONAL INFORMATION This report is intended for use in clinical monitoring and management of patients. It is not intended for use in employment-related testing. This test was developed and its performance characteristics determined by [facility] in a manner consistent with CLIA requirements. This test has not been cleared or approved by the U.S. Food and Drug Administration. Test Performed by: [facility] - [address] [address] Social Science Research Assistant: Kathy Ortiz Ph.D.; CLIA# [id number] Whole Blood 11/25/2024 8:42 AM EDT 11/28/2024 8:24 AM EDT [facility] - 11/28/2024 8:24 AM EDT One time lab order to be collected with next set of standing liver transplant labs. Please fax all results to [phone]. Call critical results to [phone]. Harvey Domínguez III, MD LAB BLOOD ORDERABLE S Final Result Performing Organization Address City/[facility]/ZIP Co de Phone Number [facility] [address] Salas [facility]. [address] * HIV-1 RNA, Quantitative, PCR (11/25/2024 8:42 AM EDT) Pathologist [facility] HIV 1 Copies Not Detected copies/mL 11/26/2024 10:57 AM EDT [facility] Comment:Test methodology for HIV-1 RNA quantification is an FDA-approved nucleic acid amplification assay. The Lower Limit of Quantitation (LLoQ) is 20 copies/mL. The linear range is 20- to 10,000,000 copies/mL. The Limit of Detection (LoD) is 13.2 copies/mL. The reference range is Not Detected. HIV [id number] See Note [id number] /mL 11/26/2024 10:57 AM EDT [facility] Comment:HIV-1 RNA not detect ed. Plasma 11/25/2024 8:42 AM EDT 11/25/2024 10:59 AM EDT [facility] - 11/26/2024 10:57 AM EDT One time lab order to be collected with next set of standing liver transplant labs. UNOS requirement. Please fax all results to [phone]. Call critical results to [phone]. Harvey Domínguez III, MD LAB BLOOD ORDERABLE S Final Result Performing Organization Address City/[facility]/ZIP Co de Phone Number [facility] [address] [place]. [address] * Hepatitis C RNA, Quantitative PCR (11/25/2024 8:42 AM EDT) Pathologist [facility] International Units Not Detected IU/mL 11/27/2024 11:35 AM EDT [facility] Comment:Test methodology for HCV RNA quantification is an FDA-approved nucleic acid amplification assay. The Lower Limit of Quantitation (LLOQ) is 15 IU/mL. The linear range of the assay is 15-100,000,000 IU/mL. The Limit of Detection (LoD) is 12.0 IU/mL for EDTA plasma. The reference range is Not Detected. IU log10 See Note log 10 IU/mL 11/27/2024 11:35 AM EDT [facility] Comment:HCV RNA not detected . Plasma 11/25/2024 8:42 AM EDT 11/25/2024 10:59 AM EDT [facility] - 11/27/2024 11:35 AM EDT One time lab order to be collected with next set of standing liver transplant labs. UNOS requirement. Please fax all results to [phone]. Call critical results to [phone]. Harvey Domínguez III, MD LAB BLOOD ORDERABLE S Final Result [facility] [address] [place] [address], [facility] * Hepatitis B Virus (HBV), PCR, Quant (11/25/2024 8:42 AM EDT) Hep B Viral DNA IU/ML Not Detected IU/mL 11/28/2024 10:09 AM EDT [facility] Comment:Test methodology for HBV DNA quantification is an FDA-approved nucleic acid amplification assay. The lower limit of quantitation (LLOQ) is 10 IU/mL. The linear range of the assay is 10-1,000,000,000 IU/mL. The limit of detection (LoD) for plasma is 2.7 IU/mL. The reference range is Not Detected. log 10 HBV as IU/mL See Note log 10 IU/mL 11/28/2024 10:09 AM EDT [facility] Comment:HBV DNA not detected . Plasma 11/25/2024 8:42 AM EDT 11/25/2024 10:59 AM EDT Narrative [facility] - 11/28/2024 10:09 AM EDT One time lab order to be collected with next set of standing liver transplant labs. UNOS requirement. Please fax all results to [phone]. Call critical results to [phone]. us Harvey Domínguez III, MD LAB BLOOD ORDERABLE S Final Result [facility] [address] [place], [place] [address] documented in this encounter [...] documented as of this encounter Care Teams Housemaid Relationship Specialty Start Date End Date Enedina Mcguire NP [address] [place] [address] PCP - General Internal Medicine 10/05/24 Maureen Pantoja, RN Txp Post Coordinator Transplant Hepatology 10/28/24 documented as of this encounter
--- OUTSIDE RECORDS SUMMARY | 2024-12-31 09:46 | XMS_ITS | Encounter Summary ---
[facility] Address [address] [place] [address] Care Team Providers Care Hydraulic Billet Maker Name Role Phone Enedina Mcguire APRN Primary Care Provider + Reason for Visit * Reason Comments Med Refill Encounter Details Date Type Department Care Team (Late st Contact Info) Description 07/20/[address] [facility] [address] [facility] [address] [place] [address] Lj Tapia APRN [address] [place] [address] Secondary esophageal varices without bleeding Social History [...] or training? Not on file Preferred Language Uzbek 07/03/2022 Sex and Gender Information Value Date Recorded Sex Assigned at Male 08/20/2024 8:28 PM EDT Legal Sex Male 7:45 AM EDT Gender Identity Not on file Sexual Orientation Not on file documented as of this encounter Plan of Treatment Upcoming Encounters Date Type Department Care Team (Late st Contact Info) Description 01/01/2025 2:15 PM EDT Office Visit [email or web address] PA[facility] MANAGEMENT [address] [facility] [address] [place] [address] Vazquez Christie PA-C [address] [place] [address] documented as of this encounter Visit Diagnoses Diagnosis Secondary esophageal varices without bleeding documented in this encounter Additional Health Concerns Infection Onset Date Last Indicated Resolved Time COVID Screen (preop/placement) 07/28/2022 07/28/2022 07/29/2022 12:00 AM EDT documented as of this encounter Care Teams Hydraulic Billet Maker Relationship Specialty Start Date End Date Enedina Mcguire APRN [address] [place] [address] PCP - General Nurse Practitioner 10/27/24 documented as of this encounter
--- OUTSIDE RECORDS SUMMARY | 2024-12-31 09:46 | XMS_ITS | Encounter Summary ---
Author Organization [facility] Address [address] [place] [address] Care Team Providers Care Sanitary Plumber Name Role Phone Jony Conde MD Primary Care Provider [phone] Lj Tapia DRAWING TRACER Unavailable [phone] Enedina Mcguire DRAWING TRACER Primary Care Provider + Nuria Fall SHEARING SHED WORKER Unavailable Unavaila ble Encounter Details Date Type Department Care Team (Late st Contact Info) Description 07/02/2022 Orders Only External Location [address] [place] [id number] Provider, External Social History Tobacco Use Types [...] PM EDT [facility] [place] [address] [facility], [address] [place] [address] Vincent Braga MD [address] [facility] [address] [place] [id number] documented as of this encounter Procedures Procedure [...] on filedocumented in this encounter Care Teams Sanitary Plumber Relationship Specialty Start Date End Date Jony Conde MD [address] [place] [address] [address] [place] [address] PCP - General 07/18/22 12/03/22 Enedina Mcguire APRN [address] [place] [address] PCP - General 12/04/22 Lj Tapia APRN [facility] [place] [address] Referring Physician Gastroenterology 07/18/22 Nuria Fall LPN [facility] TCM Nurse 07/24/24 08/23/24 documented as of this encounter
--- OUTSIDE RECORDS SUMMARY | 2024-12-31 09:46 | XMS_ITS | Encounter Summary ---
Author Organization [facility] Address [address] [place] [address] Care Team Providers Care Surgical Services Manager Name Role Phone Jony Conde MD Primary Care Provider [phone] Lj Tapia LITHOGRAPHIC GENERAL WORKER Unavailable [phone] Enedina Mcguire LITHOGRAPHIC GENERAL WORKER Primary Care Provider + Nuria Fall AGRONOMY TECHNICIAN Unavailable Unavaila ble Encounter Details Date Type Department Care Team (Late st Contact Info) Description 07/04/2022 Orders Only External Location [address] [place] [address] Presley Montes De Oca MD [address] [facility] [address] [place], [place] [id number] Social History Tobacco Use Types Packs/Day Years [...] PM EDT [facility] [address], [address] [place] [address] Vincent Braga MD [address] [facility] [address] [place] [address] documented as of this encounter Procedures Procedure [...] on filedocumented in this encounter Care Teams Surgical Services Manager Relationship Specialty Start Date End Date Jony Conde MD [address] [facility] [address] [place] [address] PCP - General 07/18/22 12/03/22 Enedina Mcguire APRN [address] [place] [address] PCP - General 12/04/22 Lj Tapia APRN [address] [place] [address] Referring Physician Gastroenterology 07/18/22 Nuria Fall LPN [facility] TCM Nurse 07/24/24 08/23/24 documented as of this encounter
--- OUTSIDE RECORDS SUMMARY | 2024-12-31 09:46 | XMS_ITS | Encounter Summary ---
[facility] Address [address] [place] [address] Care Team Providers Care Chemical Processing Equipment Repairer Name Role Phone Enedina Mcguire APRN Primary Care Provider + Reason for Visit * Reason Onset Date Comments CALLBACK 10/27/2024 Encounter Details Date Type Department Care Team ([facility] st Contact Info) Description 10/27/2024 Telephone [facility] [address] [place] [address] Enedina Mcguire APRN [address] [place] [address] CALLBACK Social History Tobacco Use Types Packs/Day Years Used Date Smoking Tobacco: Former Cigarettes 4 20 Passive Smoke Exposure: Past Smokeless Tobacco: Current Comments:MARIJUANA USE ABOUT 2X PER WEEK - reports no use 08-05-2024 Alcohol Use Standard Drinks/Week Comments Not Currently 0 (1 standard drink = 0.6 oz pure alcohol) 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 [facility] Utilities Answer Date Recorded In the past 12 months has [employer], [employer], oil, or water [employer] threatened to shut off services in your [...] Measure Score 0 10/02/2022 [facility] - Occupational Stress Questionnaire Answer [...] Relationship: Emergency Contact Best call back number: [phone] What was the call regarding: WOULD LIKE A CALL BACK FROM FRANCESCA MCGUIRE HERSELF. SHE WOULD LIKE TO DISCUSS HER 'S TRANSPLANT LIST STATUS. THEY HAVE SOME GOOD NEWS TO REPORT. documented in this encounter Plan of Treatment Upcoming Encounters Date Type Department Care Team (Late st Contact Info) Description 01/01/2025 2:15 PM EDT Office Visit [facility] PAIN MANAGEMENT [address] [facility] [address] [place] [address] Vazquez Christie PA-C [address] [place] [id number] documented as of this encounter Visit Diagnoses Not on filedocumented in this encounter Additional Health Concerns Assessment Noted Time PHQ-2 Depression Total Score: 1 12/31/19 24 3:25 PM EDT documented as of this encounter Care Teams Chemical Processing Equipment Repairer Relationship Specialty Start Date End Date Enedina Mcguire APRN [address] [place] [address] PCP - General Nurse Practitioner 10/27/24 documented as of this encounter
--- OUTSIDE RECORDS SUMMARY | 2024-12-31 09:46 | XMS_ITS | Encounter Summary ---
Author Organization [facility] Address [address] [place] [address] Care Team Providers Care Bookkeeping Clerk Name Role Phone Enedina Mcguire NP Primary Care Provider + [phone] Maureen Pantoja RN Unavailable Unavail able Source [...] release of HIV test results or diagnoses. [id number] Health Encounter Details Date Type Department Care Team (Late st Contact Info) Description 11/20/2024 Refill [facility] Transplant at [address] [place] [address] Maureen Pantoja, RN Social History Tobacco Use [...] Recorded In the past 12 months has [employer], gas, oil, or water [employer] threatened to shut off services in [...] documented as of this encounter Care Teams Bookkeeping Clerk Relationship Specialty Start Date End Date Enedina Mcguire NP [address] [place] [address] PCP - General Internal Medicine 10/05/24 Maureen Pantoja, ЮЛИЯ Txp Post Coordinator Transplant Hepatology 10/28/24 documented as of this encounter
--- OUTSIDE RECORDS SUMMARY | 2024-12-31 09:46 | XMS_ITS | Encounter Summary ---
Author Organization [facility] Address [address] [place] [address] Care Team Providers Care Business Continuity Consultant Name Role Phone Enedina Mcguire APRN Primary Care Provider + Encounter Details Date Type Department Care Team (Late st Contact Info) Description 12/05/2024 Telephone [facility] PAIN MANAGEMENT [address] [address] [place] [address] Vazquez Christie PA-C [address] [place] [address] Social History Tobacco Use Types Packs/Day Years Used Date Smoking Tobacco: Former Cigarettes 4 20 Passive Smoke Exposure: Past Smokeless Tobacco: Current Comments:MARIJUANA USE ABOUT 2X PER WEEK - reports no use 08-05-2024 Alcohol Use Standard Drinks/Week Comments Not Currently 0 (1 standard drink = 0.6 oz pure alcohol) 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 [facility] Utilities Answer Date Recorded In the past 12 months has [employer], [employer], oil, or water [employer] threatened to shut off services in your [...] Brief Depression Severity Measure Score 0 10/02/2022 [facility] - Occupational Stress Questionnaire Answer [...] Description 01/01/2025 2:15 PM EDT Office Visit [facility] PAIN MANAGEMENT [address] [facility] [address] [place] [address] Vazquez Christie PA-C [address] [facility] [address] [place] [address] documented as of this encounter Visit Diagnoses Not on filedocumented in this encounter Additional Health Concerns Assessment Noted Time PHQ-2 Depression Total Score: 1 12/31/19 24 3:25 PM EDT documented as of this encounter Care Teams Business Continuity Consultant Relationship Specialty Start Date End Date Enedina Mcguire APRN [address] [place] [address] PCP - General Nurse Practitioner 10/27/24 documented as of this encounter
--- OUTSIDE RECORDS SUMMARY | 2024-12-31 09:46 | XMS_ITS | Encounter Summary ---
Author Organization [facility] Address [address] [place] [address] Care Team Providers Care Light Fixture Servicer Name Role Phone Enedina Mcguire NP Primary Care Provider + [phone] Alicia Rankin RN Unavailable Unavail able Source [...] release of HIV test results or diagnoses. [id number] Reason for Visit * Reason Comments Results Encounter Details Date Type Department Care Team (Riky st Contact Info) Description 11/26/2024 Telephone [facility] Transplant at [address] [address] Alicia Rankin, RN Results Social [...] In the past 12 months has e [employer], gas, oil, or water [employer] threatened to shut off services in your [...] use Immunosuppression (CMS-HCC) Kidney transplant recipient Expected: 01/06/2025 (Approximate), Expires: 06/15/2025 documented as of this [...] documented as of this encounter Care Teams Light Fixture Servicer Relationship Specialty Start Date End Date Enedina Mcguire NP [address] [place] [address] PCP - General Internal Medicine 10/05/24 Alicia Rankin, RN Txp Post Coordinator Transplant Hepatology 10/28/24 documented as of this encounter
--- OUTSIDE RECORDS SUMMARY | 2024-12-31 09:47 | XMS_ITS | Encounter Summary ---
Author Organization [facility] Address [address] [place] [address] Care Team Providers Care Delivery Of Shopping News Name Role Phone Enedina Mcguire NP Primary Care Provider + [phone] Maureen Pantoja RN Unavailable Unavail able Source [...] release of HIV test results or diagnoses. [id number] Reason for Referral * Diagnostic Lab (Routine) - New Request Specialty Diagnoses / Procedures Referred By Shane hernadez Referred To Contact Diagnoses Kidney transplant recipient Liver transplant recipient (CMS-HCC) Viral disease exposure Immunosuppression ([facility]-HCC) Procedures BK Virus Quantitative by PCR, Blood [facility] Liver Transplant at [address] [address] Phone: tel: fax: Referral ID Status Reason Start Date Expiration Date V isits Requested Visits Authorized [id number] New Request 12/09/2024 06/07/2025 1 1 * Diagnostic Lab (Routine) - New Request Specialty Diagnoses / Procedures Referred By Contac t Referred To Contact Diagnoses Kidney transplant recipient Liver transplant recipient (CMS-HCC) Viral disease exposure Immunosuppression (CMS-HCC) Procedures BK Virus Quantitative by PCR, Blood [facility] Liver Transplant at [address] [address] Phone: tel: fax: Referral ID Status Reason Start Date Expiration Date V isits Requested Visits Authorized [id number] New Request 12/09/2024 06/07/2025 1 1 * Diagnostic Lab (Routine) - New Request Specialty Diagnoses / Procedures Referred By Contac t Referred To Contact Diagnoses Kidney transplant recipient Liver transplant recipient (CMS-HCC) Viral disease exposure Immunosuppression (CMS-HCC) Procedures BK Virus Quantitative by PCR, Blood [facility] Liver Transplant at [address] [address] Phone: tel: fax: Referral ID Status Reason Start Date Expiration Date V isits Requested Visits Authorized [id number] New Request 12/09/2024 06/07/2025 1 1 * Diagnostic Lab (Routine) - New Request Specialty Diagnoses / Procedures Referred By Contac t Referred To Contact Diagnoses Kidney transplant recipient Liver transplant recipient (CMS-HCC) Viral disease exposure Immunosuppression (CMS-HCC) Procedures BK Virus Quantitative by PCR, Blood [facility] Liver Transplant at [address] [address] Phone: tel: fax: Referral ID Status Reason Start Date Expiration Date V isits Requested Visits Authorized [id number] New Request 12/09/2024 06/07/2025 1 1 * Diagnostic Lab (Routine) - New Request Specialty Diagnoses / Procedures Referred By Contac t Referred To Contact Diagnoses Kidney transplant recipient Liver transplant recipient (CMS-HCC) Viral disease exposure Immunosuppression (CMS-HCC) Procedures BK Virus Quantitative by PCR, Blood [facility] Liver Transplant at [address] [address] Phone: tel: fax: Referral ID Status Reason Start Date Expiration Date V isits Requested Visits Authorized [id number] New Request 12/09/2024 06/07/2025 1 1 * Diagnostic Lab (Routine) - New Request Specialty Diagnoses / Procedures Referred By Shane hernadez Referred To Contact Diagnoses Kidney transplant recipient Liver transplant recipient (CMS-HCC) Viral disease exposure Immunosuppression ([facility]-HCC) Procedures BK Virus Quantitative by PCR, Blood [facility] Liver Transplant at [address] [address] Phone: tel: fax: Referral ID Status Reason Start Date Expiration Date V isits Requested Visits Authorized [id number] New Request 12/09/2024 06/07/2025 1 1 Encounter Details Date Type Department Care Team (Late st Contact Info) Description 12/09/2024 Orders Only [facility] Liver Transplant at [address] [address] Maureen Pantoja RN Kidney transplant recipient (Primary Dx); Liver transplant recipient (CMS-HCC); Viral disease exposure; Immunosuppression ([facility]-HCC) Social History Tobacco Use Types Packs/Day Years Used Date Smoking Tobacco: Former Cigarettes Smokeless Tobacco: Current Alcohol Use Standard Drinks/Week Comments Yes 0 (1 standard drink = 0.6 oz pure alcohol) History of alcohol abuse, reports no use in 3 week- typically endorses use as 4 glasses of wine a days Utilities Answer Date Recorded In the past 12 months has [employer], oil, or water company threatened to shut [...] as of this encounter Care Teams Delivery Of Shopping News Relationship Specialty Start Date End Date Enedina Mcguire NP [address] [place], [place] [id number] PCP - General Internal Medicine 10/05/24 Maureen Pantoja, ЮЛИЯ Txp Post Coordinator Transplant Hepatology 10/28/24 documented as of this encounter
--- OUTSIDE RECORDS SUMMARY | 2024-12-31 09:47 | XMS_ITS | Encounter Summary ---
Author Organization [facility] Address [address] [place] [address] Care Team Providers Care Commissary Superintendent Name Role Phone Enedina Mcguire NP Primary Care Provider + [phone] Maureen Pantoja RN Unavailable Unavail able Source [...] release of HIV test results or diagnoses. [id number] Health Encounter Details Date Type Department Care Team (Late st Contact Info) Description 12/09/2024 Telephone [facility] Liver Transplant at [address] [address] Mitzy Gill MA Social History [...] In the past 12 months has e [employer], gas, oil, or water company threatened to [...] call pharmacy with update. Patient notified via [employer]. * Mitzy Gill MA - 12/10/2024 10:09 [...] I stated we received a call from [facility] stating he picked up a tramadol prescription on 12/05 and there is an issue with him having naltrexone prescribed as well. Per CC ЮЛИЯ Reddy, Pt cannot have naltrexone filled while actively taking tramadol. Spoke to Kirt at [facility] and advised him not to [...] - 12/09/2024 12:41 PM EDT Kirt from [facility] states they received a naltrexone [...] as of this encounter Care Teams Commissary Superintendent Relationship Specialty Start Date End Date Enedina Mcguire NP [address] [place] [address] PCP - General Internal Medicine 10/05/24 Maureen Pantoja, ЮЛИЯ Txp Post Coordinator Transplant Hepatology 10/28/24 documented as of this encounter
--- OUTSIDE RECORDS SUMMARY | 2024-12-31 09:47 | XMS_ITS | Encounter Summary ---
Author Organization [facility] Address [address] [place] [address] Care Team Providers Care Showplace Manager Name Role Phone Enedina Mcguire NP Primary Care Provider + [phone] Maureen Pantoja RN Unavailable Unavail able Source [...] release of HIV test results or diagnoses. [id number] Health Encounter Details Date Type Department Care Team (Late st Contact Info) Description 12/09/2024 Orders Only [facility] Liver Transplant at [address] [place] [address] Maureen Pantoja, RN Social History Tobacco Use [...] Recorded In the past 12 months has [employer], gas, oil, or water [employer] threatened to shut off services in your [...] documented as of this encounter Care Teams Showplace Manager Relationship Specialty Start Date End Date Enedina Mcguire NP [address] [place] [address] PCP - General Internal Medicine 10/05/24 Maureen Pantoja, ЮЛИЯ Txp Post Coordinator Transplant Hepatology 10/28/24 documented as of this encounter
--- OUTSIDE RECORDS SUMMARY | 2024-12-31 09:47 | XMS_ITS | Encounter Summary ---
Author Organization [facility] Address [address] [place] [address] Care Team Providers Care Hand Iii Cutter Name Role Phone Enedina Mcguire NP Primary Care Provider + [phone] Maureen Pantoja RN Unavailable Unavail able Source [...] release of HIV test results or diagnoses. [id number] Reason for Visit * Reason Comments Results Encounter Details Date Type Department Care Team (Late st Contact Info) Description 11/04/2024 Telephone [facility] Liver Transplant at [address] [address] Maureen Pantoja, RN Results Social [...] In the past 12 months has e [employer], gas, oil, or water [employer] threatened to shut off services in your [...] as of this encounter Care Teams Hand Iii Cutter Relationship Specialty Start Date End Date Enedina Mcguire NP [address] [place] [address] PCP - General Internal Medicine 10/05/24 Maureen Pantoja, ЮЛИЯ Txp Post Coordinator Transplant Hepatology 10/28/24 documented as of this encounter
--- OUTSIDE RECORDS SUMMARY | 2024-12-31 09:47 | XMS_ITS | Encounter Summary ---
Author Organization [facility] Address [address] [place] [address] Care Team Providers Care Gang Tailer Name Role Phone Enedina Mcguire NP Primary Care Provider + [phone] Maureen Pantoja RN Unavailable Unavail able Source [...] release of HIV test results or diagnoses. [id number] Health Encounter Details Date Type Department Care Team (Late st Contact Info) Description 12/09/2024 Social Work [facility] Liver Transplant at [address] [place] [phone] Kaylin Willard MSW Social History Tobacco Use [...] Recorded In the past 12 months has [employer], gas, oil, or water [employer] threatened to shut off services in your [...] as of this encounter Progress Notes * NUBAI Barros - 12/09/2024 11:59 PM EDT Social [...] AM 11/25/2024 3:00 PM 12/10/2024 9:00 AM [id number] Score MAGALYS-7 Total Score 17 13 4 [...] post-transplant. He notes he meets with an HAMMERER HELPER weekly and a counselor weekly through [facility]. He was agreeable to seeing transplant CD counselortoday as well. Of note, pharmacy notified transplant staff that patient also prescribed Tramadol by his pain clinic and is unable to release Naltrexone script at this time. SW to continue to follow. 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
--- OUTSIDE RECORDS SUMMARY | 2024-12-31 09:47 | XMS_ITS | Encounter Summary ---
Author Organization [facility] Address [address] [place] [address] Care Team Providers Care [facility] Name Role Phone Enedina Mcguire NP Primary Care Provider + [phone] Maureen Pantoja RN Unavailable Unavail able Source [...] release of HIV test results or diagnoses. [id number] Health Encounter Details Date Type Department Care Team (Late st Contact Info) Description 11/04/2024 Social Work [facility] Liver Transplant at [address] [place] [phone] Kaylin Willard MSW Social History Tobacco Use [...] Recorded In the past 12 months has [employer], gas, oil, or water [employer] threatened to shut off services in your [...] Patient reports he completed CD treatment with [facility] [place] and was referred to [facility] [place] for aftercare and will be attending 1 week virtual individual counseling sessions.He reports he was due to start this while hospitalized for the transplant and plans to reschedule his next session. Hope Stone given. SW discussed process for writing to Donor family and confirmed Pt/family have [facility] brochure. No further SW needs identified. NUBIA Barros, 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
--- OUTSIDE RECORDS SUMMARY | 2024-12-31 09:47 | XMS_ITS | Encounter Summary ---
Author Organization [facility] Address [address] [place] [address] Care Team Providers Care Health Type Technician Name Role Phone Enedina Mcguire NP Primary Care Provider + [phone] Maureen Pantoja RN Unavailable Unavail able Source [...] release of HIV test results or diagnoses. [id number] Reason for Visit * Reason Comments Results Encounter Details Date Type Department Care Team (Riky st Contact Info) Description 12/12/2024 Telephone [facility] Liver Transplant at [address] [address] Maureen Pantoja, RN Results Social [...] In the past 12 months has e [employer], gas, oil, or water [employer] threatened to shut off services in [...] as of this encounter Care Teams Health Type Technician Relationship Specialty Start Date End Date Enedina Mcguire NP [address] [place] [address] PCP - General Internal Medicine 10/05/24 Maureen Pantoja, RN Txp Post Coordinator Transplant Hepatology 10/28/24 documented as of this encounter
--- OUTSIDE RECORDS SUMMARY | 2024-12-31 09:47 | XMS_ITS | Encounter Summary ---
Author Organization [facility] Address [address] [place] [address] Care Team Providers Care It Field Technician Name Role Phone Enedina Mcguire NP Primary Care Provider + [phone] Maureen Pantoja RN Unavailable Unavail able Source [...] release of HIV test results or diagnoses. [id number] Health Encounter Details Date Type Department Care Team (Late st Contact Info) Description 11/04/2024 Results Follow-Up [facility] Liver Transplant at [address] [phone] Maureen Pantoja, ЮЛИЯ Tacrolimus level, Hepatic Function [...] Recorded In the past 12 months has [employer], gas, oil, or water [employer] threatened to shut off services in [...] as of this encounter Care Teams It Field Technician Relationship Specialty Start Date End Date Enedina Mcguire NP [address] [place] [address] PCP - General Internal Medicine 10/05/24 Maureen Pantoja, RN Txp Post Coordinator Transplant Hepatology 10/28/24 documented as of this encounter
--- OUTSIDE RECORDS SUMMARY | 2024-12-31 09:47 | XMS_ITS | Encounter Summary ---
Author Organization [facility] Address [address] [place] [address] Care Team Providers Care Flue Cleaner Name Role Phone Enedina Mcguire NP Primary Care Provider + [phone] Maureen Pantoja RN Unavailable Unavail able Source [...] release of HIV test results or diagnoses. [id number] Health Encounter Details Date Type Department Care Team (Late st Contact Info) Description 12/09/2024 Chart Note [facility] Liver Transplant at [address] [place] [phone] Marlene Ro MA Social History Tobacco Use [...] Recorded In the past 12 months has [employer], gas, oil, or water [employer] threatened to shut off services in your [...] No growth URINE SPECIMEN / Unknown Result [facility] Provider MICROBIOLOGY - GENERAL OR DERABLES Final Result * (ABNORMAL) Magnesium (12/08/2024 10:43 AM EDT) Pathologist [facility] Magnesium 1.3(A) 1.6 - 2.4 mg/dL Plasma Narrative Resulting Agency Comment [facility] Result [facility] LAB BLOOD ORDERABLES Denisse l Result * (ABNORMAL) Renal Function Panel w/o EGFR (12/08/2024 10:43 AM EDT) Pathologist [facility] Glucose 83 mg/dL BUN 21 4 - [...] Blood Narrative Resulting Agency Comment [facility] Result [facility] LAB BLOOD ORDERABLES Denisse l Result * Creatinine, urine, random (12/08/2024 10:43 AM EDT) [facility] Creatinine, Urine 65 Urine Narrative Resulting Agency Comment [facility] Result [facility] Provider URINE ORDERABLES Final Re sult * Urinalysis w/Rfl to Microscopic (12/08/2024 10:43 AM EDT) Pathologist [facility] Glucose, UA Negative Negative Ketones, UA Negative Negative Blood, UA Negative Negative Bilirubin, UA Negative Negative Urobilinogen, UA Normal Normal Protein, UA Negative Negative Nitrite, UA Negative Negative Leukocyte Esterase, UA Negative Negative pH, UA 6.0 4.5 - 8.0 Specific [place], UA 1.010 1.005 - 1.030 Clarity, UA Clear Clear Color, UA Yellow Light Yellow, Yellow Urine Narrative Resulting Agency Comment [facility] Result [facility] Provider URINE ORDERABLES Final Re sult * Urine Protein, Tot, Random (w/o Creat) (12/08/2024 10:43 AM EDT) Total Protein, Ur 11.0 Urine Narrative Resulting Agency Comment [facility] Result [facility] Provider URINE ORDERABLES Final Re sult * (ABNORMAL) Hepatic Function Panel (12/08/2024 10:43 AM EDT) Pathologist [facility] Bilirubin, Direct 0.1 Bilirubin, Indirect 0.2 Alkaline Phosphatase 80 U/L ALT 14 U/L AST 16 U/L Total Bilirubin 0.3 0.1 - 1.4 mg/dL Total Protein 5.6(A) 6.4 - 8.2 g/dL Plasma Narrative Resulting Agency Comment [facility] Result [facility] Provider LAB BLOOD ORDERABLES Denisse [...] 5.1 10^3/mL Blood Narrative Resulting Agency Comment [facility] us Historical Provider LAB BLOOD ORDERABLES Denisse l Result documented in this encounter Visit Diagnoses Not on filedocumented in this encounter Additional Health Concerns Infection Onset Date Last Indicated Resolved Time 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
--- OUTSIDE RECORDS SUMMARY | 2024-12-31 09:47 | XMS_ITS | Encounter Summary ---
Author Organization [facility] Address [address] [place] [address] Care Team Providers Care Tar Heater Operator Name Role Phone Enedina Mcguire APRN [...] alcohol) 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 [facility] Utilities Answer Date Recorded In the past 12 months has [employer], gas, oil, or water [employer] threatened to shut off services in your [...] Brief Depression Severity Measure Score 0 10/02/2022 [facility] [place] of Occupat ional Health - Occupational Stress [...] Office Visit [facility] PAIN MANAGEMENT [address] [phone] Vazquez Christie PA-C [address] [place] [address] documented as of this encounter Visit Diagnoses Not on filedocumented in this encounter Additional Health Concerns Assessment Noted Time PHQ-2 Depression Total Score: 1 12/31/19 24 3:25 PM EDT documented as of this encounter Care Teams Tar Heater Operator Relationship Specialty Start Date End Date Enedina Mcguire APRN [address] [place] [address] PCP - General Nurse Practitioner 10/27/24 documented as of this encounter
--- OUTSIDE RECORDS SUMMARY | 2024-12-31 09:48 | XMS_ITS | Encounter Summary ---
Author Organization [facility] Address [address] [place] [address] Care Team Providers Care Cd Reactor Operator Name Role Phone Enedina Mcguire NP Primary Care Provider + [phone] Maureen Pantoja RN Unavailable Unavail able Source [...] release of HIV test results or diagnoses. 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, Social History Tobacco Use Types Packs/Day Years Used Date Smoking Tobacco: Former Cigarettes Smokeless Tobacco: Current Alcohol Use Standard Drinks/Week Comments Yes 0 (1 standard drink = 0.6 oz pure alcohol) History of alcohol abuse, reports no use in 3 week- typically endorses use as 4 glasses of wine a days Utilities Answer Date Recorded In the past 12 months has [employer], gas, oil, or water [employer] threatened to shut off services in [...] EDT 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
--- OUTSIDE RECORDS SUMMARY | 2024-12-31 09:48 | XMS_ITS | Encounter Summary ---
Author Organization [facility] Address [facility] [place] [address] Care Team Providers Care Monotype Setter Name Role Phone Enedina Mcguire NP Primary Care Provider + [phone] Maureen Pantoja RN Unavailable Unavail able Source [...] release of HIV test results or diagnoses. [id number] Health Encounter Details Date Type Department Care Team (Late st Contact Info) Description 10/31/2024 Orders Only [facility] Liver Transplant at [facility] [address] [facility] [address] [place] [address] Harvey Domínguez III, MD [address] [place] [address] [address] [place] [address] Liver replaced by transplant ([facility]) (Primary Dx); Immunosuppressive management encounter following liver transplant ([facility]) Social History Tobacco Use Types [...] past 12 months has th e electric, [employer], [employer], or water [employer] threatened to shut off services in your [...] level Lab Routine Liver replaced by transplant ([facility]) Immunosuppressive management encounter following liver transplant ([facility]) 70 Occurrences starting 11/03/2024 until 10/31/2025, 3 completed Hepatic Function Panel Lab Routine Liver replaced by transplant ([facility]) Immunosuppressive management encounter following liver transplant ([facility]) 70 Occurrences starting 11/03/2024 until 10/31/2025, 3 completed Renal Function Panel w/EGFR Lab Routine Liver replaced by transplant ([facility]) Immunosuppressive management encounter following liver transplant ([facility]) 70 Occurrences starting 11/03/2024 until 10/31/2025, 2 completed CBC Lab Routine Liver replaced by transplant ([facility]) Immunosuppressive management encounter following liver transplant ([facility]) 70 Occurrences starting 11/03/2024 until 10/31/2025, 2 completed Differential Lab Routine Liver replaced by transplant ([facility]) Immunosuppressive management encounter following liver transplant ([facility]) 70 Occurrences starting 11/03/2024 until 10/31/2025, [...] - 8,640 /uL 11/25/2024 10:25 AM EDT [facility] Lymphocytes Absolute 1,555 570 - 4,860 /uL 11/25/2024 10:25 AM EDT [facility] Monocytes Absolute 510 0 - 1,296 /uL 11/25/2024 10:25 AM EDT [facility] Eosinophils Absolute 32 0 - 864 /uL 11/25/2024 10:25 AM EDT [facility] Basophils Absolute 73 0 - 108 /uL 11/25/2024 10:25 AM EDT [facility] Whole Blood 11/25/2024 8:42 AM EDT 11/25/2024 9:44 AM EDT Narrative [facility] - 11/25/2024 10:25 AM EDT Standing orders to be drawn: Every Sunday and before 9am and prior to patient taking morning medications. Liver Transplant Fax results to [phone] Call Critical results to [phone] us Harvey Domínguez III, MD LAB BLOOD ORDERABLE S Final Result [facility] [address] [place] [address], [facility] * (ABNORMAL) Hepatic Function Panel (11/25/2024 8:42 AM EDT) Total Bilirubin 0.7 0.0 - 1.5 mg/dL 11/25/2024 10:20 AM EDT [facility] Bilirubin, Direct 0.20 0.00 - 0.40 mg/dL 11/25/2024 10:20 AM EDT [facility] AST 9(L) 13 - 39 U/L 11/25/2024 10:20 AM EDT [facility] ALT 22 7 - 52 U/L 11/25/2024 10:20 AM EDT [facility] Alkaline Phosphatase 198(H) 36 - 125 U/L 11/25/2024 10:20 AM EDT [facility] Total Protein 7.0 6.4 - 8.9 g/dL 11/25/2024 10:20 AM EDT [facility] Albumin 4.5 3.5 - 5.7 g/dL 11/25/2024 10:20 AM EDT [facility] Bilirubin, Indirect 0.50 0.00 - 1.10 mg/dL 11/25/2024 10:20 AM EDT [facility] Plasma 11/25/2024 8:42 AM EDT 11/25/2024 9:47 AM EDT [facility] - 11/25/2024 10:20 AM EDT Standing orders to be drawn: Every Sunday and before 9am and prior to patient taking morning medications. Liver Transplant Fax results to [phone] Call Critical results to [phone] DO NOT REPLACE RENAL PANEL or HEPATIC FUNCTION PANEL w/ CMP, BMP or HEPATIC PROFILE Harvey Domínguez III, MD LAB BLOOD ORDERABLE S Final Result [facility] [address] * Tacrolimus level (11/25/2024 8:42 AM EDT) Tacrolimus (LC-MS) 11.6 3.0 - 15.0 ng/mL 11/25/2024 1:14 PM EDT [facility] [...] EDT 11/25/2024 9:44 AM EDT [facility] - 11/25/2024 1:14 PM EDT Standing orders to be drawn: Every Sunday and before 9am and prior to patient taking morning medications. Liver Transplant Fax results to [phone] Call Critical results to [phone] us Harvey Domínguez III, MD LAB BLOOD ORDERABLE S Final Result [facility] [address] [facility] [place] [address], [facility] * (ABNORMAL) Differential (11/11/2024 9:13 AM EDT) [...] morning medications. Liver Transplant Fax results to [phone] Call Critical results to [phone] us Harvey Domínguez III, MD LAB BLOOD ORDERABLE S Final Result [facility] [address] [facility] [place] [address], [facility] [...] morning medications. Liver Transplant Fax results to [phone] Call Critical results to [phone] us Harvey Domínguez III, MD LAB BLOOD ORDERABLE S Final Result [facility] [address] [place] [address], [facility] [...] 9:13 AM EDT 11/11/2024 10:19 AM EDT [facility] - 11/11/2024 10:51 AM EDT Standing orders to be drawn: Every Sunday and before 9am and prior to patient taking morning medications. Liver Transplant Fax results to [phone] Call Critical results to [phone] DO NOT REPLACE RENAL PANEL or HEPATIC FUNCTION PANEL w/ CMP, BMP or HEPATIC PROFILE us Harvey Domínguez III, MD LAB BLOOD ORDERABLE S Final Result [facility] [address] [place] [address], [facility] [...] EDT 11/11/2024 10:19 AM EDT [facility] - 11/11/2024 10:51 AM EDT Standing orders to be drawn: Every Sunday and before 9am and prior to patient taking morning medications. Liver Transplant Fax results to [phone] Call Critical results to [phone] DO NOT REPLACE RENAL PANEL or HEPATIC FUNCTION PANEL w/ CMP, BMP or HEPATIC PROFILE Harvey Domínguez III, MD LAB BLOOD ORDERABLE S Final Result [facility] [address] * Tacrolimus level (11/11/2024 9:13 AM [...] morning medications. Liver Transplant Fax results to [phone] Call Critical results to [phone] us Harvey Domínguez III, MD LAB BLOOD ORDERABLE S Final Result [facility] [address] [place] [address], [facility] * (ABNORMAL) Differential (11/04/2024 8:46 AM EDT) Differential Comments See Note 11/05/2024 12:05 AM EDT [facility] Comment: _Platelets Appear Decreased _Platelet Morphology Normal Myelocytes Relative 3.0(H) 0.0 - 0.0 % 11/05/2024 12:05 AM EDT [facility] Neutrophils Relative 73.0 40.0 - 80.0 % 11/05/2024 12:05 AM EDT [facility] Lymphocytes Relative 17.0 15.0 - 45.0 % 11/05/2024 12:05 AM EDT [facility] Monocytes Relative 6.0 0.0 - 12.0 % 11/05/2024 12:05 AM EDT [facility] Eosinophils Relative 1.0 0.0 - 8.0 % 11/05/2024 12:05 AM EDT [facility] Basophils Relative 0.0 0.0 - 1.0 % 11/05/2024 12:05 AM EDT [facility] Neutrophils Absolute 5,256 1,520 - 8,640 /uL 11/05/2024 12:05 AM EDT [facility] Myelocytes Absolute 216(H) 0 - 0 /uL 11/05/2024 12:05 AM EDT [facility] Lymphocytes Absolute 1,224 570 - 4,860 /uL 11/05/2024 12:05 AM EDT [facility] Monocytes Absolute 432 0 - 1,296 /uL 11/05/2024 12:05 AM EDT [facility] Eosinophils Absolute 72 0 - 864 /uL 11/05/2024 12:05 AM EDT [facility] Basophils Absolute 0 0 - 108 /uL 11/05/2024 12:05 AM EDT [facility] PLT Morphology Platelet morphology appears normal 11/05/2024 12:05 AM EDT [facility] Whole Blood 11/04/2024 8:46 AM EDT 11/04/2024 11:01 PM EDT Narrative [facility] - 11/05/2024 12:05 AM EDT Standing orders to be drawn: Every Sunday and before 9am and prior to patient taking morning medications. Liver Transplant Fax results to [phone] Call Critical results to [phone] Manual WBC differential performed per review criteria approved by the medical billing assistant. us Harvey Domínguez III, MD LAB BLOOD ORDERABLE S Final Result [facility] [address] [facility] [place] [address], [facility] * (ABNORMAL) CBC (11/04/2024 8:46 AM EDT) WBC 7.2 3.8 - 10.8 10E3/uL 11/05/2024 12:05 AM EDT [facility] RBC 3.17(L) 4.20 - 5.80 10E6/uL 11/05/2024 12:05 AM EDT [facility] Hemoglobin 9.7(L) 13.2 - 17.1 g/dL 11/05/2024 12:05 AM EDT [facility] Hematocrit 28.6(L) 38.5 - 50.0 % 11/05/2024 12:05 AM EDT [facility] MCV 90.2 80.0 - 100.0 fL 11/05/2024 12:05 AM EDT [facility] MCH 30.5 27.0 - 33.0 pg 11/05/2024 12:05 AM EDT [facility] MCHC 33.8 32.0 - 36.0 g/dL 11/05/2024 12:05 AM EDT [facility] RDW 17.9(H) 11.0 - 15.0 % 11/05/2024 12:05 AM EDT [facility] Platelets 137(L) 140 - 400 10E3/uL 11/05/2024 12:05 AM EDT [facility] Platelet Estimate Decreased 11/05/2024 12:05 AM EDT [facility] MPV 8.4 7.5 - 11.5 fL 11/05/2024 12:05 AM EDT [facility] Whole Blood 11/04/2024 8:46 AM EDT 11/04/2024 11:01 PM EDT Narrative [facility] - 11/05/2024 12:05 AM EDT Standing orders to be drawn: Every Sunday and before 9am and prior to patient taking morning medications. Liver Transplant Fax results to [phone] Call Critical results to [phone] Peripheral blood smear was scanned per review criteria approved by the laboratory medical billing assistant. us Harvey Domínguez III, MD LAB BLOOD ORDERABLE S Final Result [facility] [address] * (ABNORMAL) Renal Function Panel w/EGFR (11/04/2024 8:46 AM EDT) Sodium 139 133 - 146 mmol/L 11/04/2024 10:06 AM EDT [facility] Potassium 3.8 3.5 - 5.3 mmol/L 11/04/2024 10:06 AM EDT [facility] Chloride 106 98 - 110 mmol/L 11/04/2024 10:06 AM EDT [facility] CO2 25 21 - 33 mmol/L 11/04/2024 10:06 AM EDT [facility] Anion Gap 8 3 - 16 mmol/L 11/04/2024 10:06 AM EDT [facility] BUN 34(H) 7 - 25 mg/dL 11/04/2024 10:06 AM EDT [facility] Creatinine 1.08 0.60 - 1.30 mg/dL 11/04/2024 10:06 AM EDT [facility] Glucose 92 70 - 100 mg/dL 11/04/2024 10:06 AM EDT [facility] Calcium 7.8(L) 8.6 - 10.3 mg/dL 11/04/2024 10:06 AM EDT [facility] Phosphorus 1.9(L) 2.1 - 4.7 mg/dL 11/04/2024 10:06 AM EDT [facility] Albumin 3.5 3.5 - 5.7 g/dL 11/04/2024 10:06 AM EDT [facility] Osmolality, Calculated 295 278 - 305 mOsm/kg 11/04/2024 10:06 AM EDT [facility] EGFR 88 11/04/2024 10:06 AM EDT [facility] [...] AM EDT 11/04/2024 9:32 AM EDT Narrative [facility] - 11/04/2024 10:06 AM EDT Standing orders to be drawn: Every Sunday and before 9am and prior to patient taking morning medications. Liver Transplant Fax results to [phone] Call Critical results to [phone] DO NOT REPLACE RENAL PANEL or HEPATIC FUNCTION PANEL w/ CMP, BMP or HEPATIC PROFILE us Harvey Domínguez III, MD LAB BLOOD ORDERABLE S Final Result [facility] [address] [place] [address], [facility] * (ABNORMAL) Hepatic Function Panel (11/04/2024 8:46 AM EDT) Total Bilirubin 1.3 0.0 - 1.5 mg/dL 11/04/2024 10:06 AM EDT [facility] Bilirubin, Direct 0.57(H) 0.00 - 0.40 mg/dL 11/04/2024 10:06 AM EDT [facility] AST 20 13 - 39 U/L 11/04/2024 10:06 AM EDT [facility] ALT 67(H) 7 - 52 U/L 11/04/2024 10:06 AM EDT [facility] Alkaline Phosphatase 133(H) 36 - 125 U/L 11/04/2024 10:06 AM EDT [facility] Total Protein 5.4(L) 6.4 - 8.9 g/dL 11/04/2024 10:06 AM EDT [facility] Albumin 3.5 3.5 - 5.7 g/dL 11/04/2024 10:06 AM EDT [facility] Bilirubin, Indirect 0.73 0.00 - 1.10 mg/dL 11/04/2024 10:06 AM EDT [facility] Plasma 11/04/2024 8:46 AM EDT 11/04/2024 9:32 AM EDT Narrative [facility] - 11/04/2024 10:06 AM EDT Standing orders to be drawn: Every Sunday and before 9am and prior to patient taking morning medications. Liver Transplant Fax results to [phone] Call Critical results to [phone] DO NOT REPLACE RENAL PANEL or HEPATIC FUNCTION PANEL w/ CMP, BMP or HEPATIC PROFILE us Harvey Domínguez III, MD LAB BLOOD ORDERABLE S Final Result [facility] [address] [place] [address], [facility] * Tacrolimus level (11/04/2024 8:46 AM EDT) Tacrolimus (LC-MS) 9.0 3.0 - 15.0 ng/mL 11/04/2024 3:14 PM EDT [facility] [...] morning medications. Liver Transplant Fax results to [phone] Call Critical results to [phone] us Harvey Domínguez III, MD LAB BLOOD ORDERABLE S Final Result [facility] [address] documented in this encounter Visit Diagnoses [...] documented as of this encounter Care Teams Monotype Setter Relationship Specialty Start Date End Date Enedina Mcguire NP [address] [place] [address] PCP - General Internal Medicine 10/05/24 Maureen Pantoja, ЮЛИЯ Txp Post Coordinator Transplant Hepatology 10/28/24 documented as of this encounter
--- OUTSIDE RECORDS SUMMARY | 2024-12-31 09:48 | XMS_ITS | Encounter Summary ---
Author Organization [facility] Address [address] [place] [address] Care Team Providers Care Sole Scraper Name Role Phone Enedina Mcguire NP Primary Care Provider + [phone] Maureen Pantoja RN Unavailable Unavail able Source [...] release of HIV test results or diagnoses. [id number] Reason for Visit * Reason Comments Transplant Review Encounter Details Date Type Department Care Team (Late st Contact Info) Description 10/27/2024 Pharmacy Services [facility] [address] [place] [phone] Opal Cox, TaniD Social History Tobacco [...] In the past 12 months has [employer], gas, oil, or water [employer] threatened to shut off services in [...] Patient's prescriptions were sent to [facility] Pharm[facility] for a Transplant benefits review. Julien Anderson received a Kidney/Liver Transplant on 10/26-10/27/24 at [facility]. The patient's discharge medications were sent to [facility] for anticipated discharge of 11/03/24. The patient has a [employer] [facility] commercial insurance plan to cover prescriptions. Currently, the patient's co-pay for all medications is listed below: Acetaminophen 325 mg - $4 Alcohol swabs - $0 Aspiring 81mg - $4 Atovaquone 750 mg/5 ml - $0 Dexcom G7 Supervisor Inspection And Testing- $0 Dexcom G7 Sensor- $0 Eliquis 2.5mg [...] $0 Specialty Pharmacy Requirements: Name of Pharmacy: [facility] Specialty Phone Number: Prescriptions Transferred at Discharge Date: The patient could have potential eligibility for the pharmaceutical company medication assistance program for each of these medications. Mr Anderson's total cost of discharge prescriptions is currently $16. This total is subject to changewith the addition or change in any of the prescriptions sent to [facility] Discharge Pharmacy. A call was placed to Mr Anderson's room to discuss total cost amount from above and encourage patientto set up profile with [facility] Specialty. [facility] Specialty Pharmacy confirmed delivery of immunosuppressants [...] The patient has been referred to the [facility] Transplant Team. The patient should visit [facility] for assistance if problems arise with the prescriptions. If questions arise regarding discharge medications, please call [phone]. Opal Cox Pharm D Transitions of Care [phone] documented in this encounter Plan of Treatment [...] documented as of this encounter Care Teams Sole Scraper Relationship Specialty Start Date End Date Enedina Mcguire NP [address] [place] [address] PCP - General Internal Medicine 10/05/24 Maureen Pantoja, ЮЛИЯ Txp Post Coordinator Transplant Hepatology 10/28/24 documented as of this encounter
--- OUTSIDE RECORDS SUMMARY | 2024-12-31 09:50 | XMS_ITS | Encounter Summary ---
Author Organization [facility] Address [address] [place] [address] Care Team Providers Care Vocational Rehabilitation Administrator Name Role Phone Enedina Mcguire NP Primary Care Provider + [phone] Maureen Pantoja RN Unavailable Unavail able Source [...] release of HIV test results or diagnoses. [id number] Health Encounter Details Date Type Department Care Team (Late st Contact Info) Description 11/03/2024 Telephone [facility] Liver Transplant at [address] [place] [phone] Marisela Martinez MA Social History Tobacco [...] Recorded In the past 12 months has [employer], gas, oil, or water [employer] threatened to shut off services in your [...] he will have his labs drawn at [facility] prior to clinic on 11/03. documented in [...] as of this encounter Care Teams Vocational Rehabilitation Administrator Relationship Specialty Start Date End Date Enedina Mcguire NP [address] [place] [address] PCP - General Internal Medicine 10/05/24 Maureen Pantoja, ЮЛИЯ Txp Post Coordinator Transplant Hepatology 10/28/24 documented as of this encounter
--- OUTSIDE RECORDS SUMMARY | 2024-12-31 09:50 | XMS_ITS | Encounter Summary ---
Author Organization [facility] Address [address] [place] [address] Care Team Providers Care Environmental Monitoring Specialist Name Role Phone Enedina Mcguire NP Primary Care Provider + [phone] Maureen Pantoja RN Unavailable Unavail able Source [...] release of HIV test results or diagnoses. [id number] Health Encounter Details Date Type Department Care Team (Late st Contact Info) Description 11/03/2024 Chart Note [facility] Liver Transplant at [address] [place] [phone] Hillary Fernandes, TaniD Liver Transplant Pharmacy Discharge [...] In the past 12 months has e [employer], gas, oil, or water [employer] threatened to shut off services in your [...] day. blood-glucose meter (TRUE METRIX GLUCOSE METER) [facility] Use to test blood sugar [...] = 12 units lancets (ACCU-CHEK SOFTCLIX LANCETS) [facility] Use to test blood sugar [...] times a day. 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
--- OUTSIDE RECORDS SUMMARY | 2024-12-31 09:51 | XMS_ITS | Encounter Summary ---
Author Organization [facility] Address [address] [place] [address] Care Team Providers Care Integration Lead Name Role Phone Enedina Mcguire NP Primary Care Provider + [phone] Maureen Pantoja RN Unavailable Unavail able Source [...] release of HIV test results or diagnoses. [id number] Health Encounter Details Date Type Department Care Team (Late st Contact Info) Description 12/17/2024 Chart Note [facility] Liver Transplant at [address] [place] [phone] Marlene Ro MA 12/16 Labs entered [facility] Social History Tobacco Use Types Packs/Day Years Used Date Smoking Tobacco: Former Cigarettes Smokeless Tobacco: Current Alcohol Use Standard Drinks/Week Comments Yes 0 (1 standard drink = 0.6 oz pure alcohol) History of alcohol abuse, reports no use in 3 week- typically endorses use as 4 glasses of wine a days Utilities Answer Date Recorded In the past 12 months has e [employer], gas, oil, or water [employer] threatened to shut off services in your [...] 12/17/2024 10:44 AM EDT 12/16 Labs entered [facility] documented in this encounter Plan of [...] 2.4 mg/dL Plasma Narrative Resulting Agency Comment [facility] Historical Provider MD LAB BLOOD ORDERABLES Denisse l Result * (ABNORMAL) Renal Function Panel w/o EGFR (12/16/2024 10:05 AM EDT) Glucose 94 BUN 14 CO2 23(A) 13 - 22 mmol/L Creatinine 0.80 Potassium 4.3 Sodium 141 Chloride 108 Phosphorus 4.9 2.5 - 4.9 mg/dL Calcium 10.0 EGFR 107 mg/dL Albumin 4.4 3.5 - 5.0 g/dL Blood Narrative Resulting Agency Comment [facility] Result [facility] MD LAB BLOOD ORDERABLES Denisse l Result * Protime-INR (12/16/2024 10:05 AM EDT) Pathologist [facility] INR 0.95 0.9 - 1.1 Plasma Narrative Resulting Agency Comment [facility] Result [facility] MD LAB BLOOD ORDERABLES Denisse [...] 4.8 10^3/mL Blood Narrative Resulting Agency Comment [facility] Result [facility] MD LAB BLOOD ORDERABLES Denisse l Result * Hepatic Function Panel (12/16/2024 10:05 AM EDT) Bilirubin, Direct 0.2 Bilirubin, Indirect 0.2 Alkaline Phosphatase 73 ALT 15 AST 19 Total Bilirubin 0.4 Total Protein 6.2 Plasma Narrative Resulting Agency Comment [facility] us Historical Provider LAB BLOOD ORDERABLES Denisse l Result documented in this encounter Visit Diagnoses Not on filedocumented in this encounter Additional Health Concerns Infection Onset Date Last Indicated Resolved Time 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
--- OUTSIDE RECORDS SUMMARY | 2024-12-31 09:51 | XMS_ITS | Encounter Summary ---
Author Organization [facility] Address [address] [place] [address] Care Team Providers Care Sugarcane Research Technician Name Role Phone Enedina Mcguire NP Primary Care Provider + [phone] Alicia Rankin RN Unavailable Unavail able Source [...] release of HIV test results or diagnoses. [id number] Reason for Visit * Reason Comments Results Medication Dose Change Encounter Details Date Type Department Care Team (Late st Contact Info) Description 12/22/2024 Telephone [facility] Liver Transplant at [address] [address] Alicia Rankin, ЮЛИЯ Results; Medication [...] Recorded In the past 12 months has [employer], gas, oil, or water company threatened [...] for therapeutic drug monitoring S/P liver transplant ([facility]) Hypomagnesemia Disorders of magnesium metabolism Kidney transplant recipient Hypertension, unspecified type Gastroesophageal reflux disease, unspecified whether esophagitis present documented in this encounter Additional Health Concerns Infection Onset Date Last Indicated Resolved Time 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
--- OUTSIDE RECORDS SUMMARY | 2024-12-31 09:51 | XMS_ITS | Encounter Summary ---
Author Organization [facility] Address [address] [place] [address] Care Team Providers Care Critical Care Clinical Nurse Specialist Name Role Phone Enedina Mcguire APRN Primary Care Provider + Reason for Visit * Reason Comments Med Refill Encounter Details Date Type Department Care Team ([facility] st Contact Info) Description 12/12/2024 Refill [facility] INTERNAL MEDICINE [address] [place] [address] Enedina Mcguire APRN [address] [place], [place] [id number] Acquired hypothyroidism; Secondary esophageal varices without bleeding Social History Tobacco Use Types Packs/Day Years Used Date Smoking Tobacco: Former Cigarettes 4 20 Passive Smoke Exposure: Past Smokeless Tobacco: Current Comments:MARIJUANA USE ABOUT 2X PER WEEK - reports no use 08-05-2024 Alcohol Use Standard Drinks/Week Comments Not Currently 0 (1 standard drink = 0.6 oz pure alcohol) 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 [facility] Utilities Answer Date Recorded In the past 12 months has [employer], gas, oil, or water [employer] threatened to shut off services in your [...] Depression Severity Measure Score 0 10/02/2022 [facility] - Occupational Stress Questionnaire Answer [...] GED or equivalent No 07/09/2024 Preferred Language Greenlandic 07/09/2024 PHQ-2 Answer Date Recorded Patient Health [...] Description 01/01/2025 2:15 PM EDT Office Visit [facility] PAIN MANAGEMENT [address] [address] Vazquez Christie PA-C [address] [place] [address] documented as of this encounter Visit Diagnoses Diagnosis Acquired hypothyroidism Unspecified hypothyroidism Secondary esophageal varices without bleeding documented in this encounter Additional Health Concerns Assessment Noted Time PHQ-2 Depression Total Score: 1 12/31/19 24 3:25 PM EDT documented as of this encounter Care Teams Critical Care Clinical Nurse Specialist Relationship Specialty Start Date End Date Enedina Mcguire APRN [address] [place] [address] PCP - General Nurse Practitioner 10/27/24 documented as of this encounter
--- OUTSIDE RECORDS SUMMARY | 2024-12-31 09:51 | XMS_ITS | Encounter Summary ---
Author Organization [employer] ([place], [place], [place], [place]) Address [address] [place] [address] Care Team Providers Care Wood Mill Supervisor Name Role Phone Unavailable Primary Care Provider Unavaillia e Encounter Details Date Type Department Care Team (Late st Contact Info) Description 06/03/2018 Transcribed Document [facility] [address] [place] [address] ProviderEbenezer MD [address], [place] [id number] Social History Tobacco Use Types Packs/Day Years [...] - Historical ProviderMD - 06/03/2018 1:05 PM PUBLIC RELATIONS PLAYER Patient: JULIEN ZELAYA Age: 33 years Sex: [...] s/p picking up a glass that shattered group captain. lacerations noted with bleeding controlled . [...] EST Height Source Stated Height Entry Format Bent Height/Length, SETSWANA (ft) 6 ft Height/Length SETSWANA 4 Inch CLINICALHEIGHT 193.04 cm Hiller Body Weight 85.74 kg Weight Source, ED Standing scale Weight Entry Format Bent Weight Cymro lb 265 lb CLINICALWEIGHT 120.45 kg Body [...] 14:22 EST, Discharge to: Home. Prescriptions: Prescription Director Of Dietary Pharmacy: Keflex 500 mg oral capsule (Prescribe): [...] of instructions. Electronically signed by Luis Eduardo Ohcoa Conversion Latex Ribbon Machine Operator Cerner at 08/29/2022 6:34 PM CDT documented in this encounter Plan of Treatment Not on file documented as of this encounter Visit Diagnoses Not on filedocumented in this encounter
--- OUTSIDE RECORDS SUMMARY | 2024-12-31 09:51 | XMS_ITS | Encounter Summary ---
Author Organization [facility] Address [address] [place] [address] Care Team Providers Care Furs Salesperson Name Role Phone Enedina Mcguire NP Primary Care Provider + [phone] Maureen Pantoja RN Unavailable Unavail able Source [...] release of HIV test results or diagnoses. [id number] Health Encounter Details Date Type Department Care Team (Late st Contact Info) Description 12/18/2024 Refill [facility] Liver Transplant at [address] [place] [phone] Maureen Pantoja, RN Encounter for therapeutic drug monitoring; S/P liver transplant ([facility]); Hypomagnesemia; Kidney transplant recipient; Hypertension, unspecified type; [...] Recorded In the past 12 months has [employer], gas, oil, or water [employer] threatened to shut off services in your [...] for therapeutic drug monitoring S/P liver transplant ([facility]) Hypomagnesemia Disorders of magnesium metabolism Kidney transplant recipient Hypertension, unspecified type Gastroesophageal reflux disease, unspecified whether esophagitis present documented in this encounter Additional Health Concerns Infection Onset Date Last Indicated Resolved Time 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
--- OUTSIDE RECORDS SUMMARY | 2024-12-31 09:51 | XMS_ITS | Encounter Summary ---
Author Organization [employer] ([place], [place], [place], [place]) Address [address] [place] [address] Care Team Providers Care Food Services Director Name Role Phone Unavailable Primary Care Provider Unavailabl e Encounter Details Date Type Department Care Team (Late st Contact Info) Description 06/03/2018 Transcribed Document [facility] [place] Medicine [address] [place] [address] ProviderEbenezer MD [address] [place] [address] Social History Tobacco Use Types [...] - Historical ProviderMD - 06/03/2018 3:04 PM FLOOR INSTALLATION MECHANIC [address] [place] [address] PERSON INFORMATION Name JULIEN ZELAYA Age 33 Years 1985 Sex Male Language Bolivian PCP SALLY EVERETT (REF) T Marital Status Single Med Service Emergency Medicine Acct# Arrival 06/03/2018 12:08:00 Visit Reason Finger laceration; CUT FINGERS Acuity 3 - Urgent LOS 000 02:56 Depart Date: 06/03/18 03:04 PM Address: [address] [facility] [address] Comment: PROVIDER INFORMATION Provider Role Assigned Unassigned Lizeth Almeida, BAG ADJUSTER Nurse 06/03/2018 12:39:09 DOMINIQUE BREWER PA-C ED [...] PURI [address] [place], [place] [id number] [email or web address] Within 2 to 3 days Comment: documented in this encounter Plan of Treatment Not on file documented as of this encounter Visit Diagnoses Not on filedocumented in this encounter
--- OUTSIDE RECORDS SUMMARY | 2024-12-31 09:51 | XMS_ITS ---
Author Organization [facility] Address [address] [place] [address] Care Team Providers Care Records Analyst Name Role Phone Enedina Mcguire NP Primary Care Provider + [phone] Maureen Pantoja RN Unavailable Unavail able Transplant Episode Liver Recipient [facility] ([place], [place]) - [facility] Organ Received: Liver Transplanted on 10/26/2024 Marked as Active Follow-up on 10/26/2024 Liver CoordinatorMaureen Pantoja RN Phone: N/A Fax: N/A Email: N/A [place] Organ Diagnosis Organ Primary Contributory Liver Alcohol-Associated [...] N/A N/A Chris Orosco MD Referring Physician [phone] N/A Maureen Leeanna Pantoja, RN Txp Post Coordinator N/A N/A N/A NUBIA Barros Txp Surgical Garment Assembler N/A N/A N/A Harvey Domínguez III, MD Txp Surgeon [phone] N/A Mary Butler RN Txp Pre Coordinator N/A N/A N/A Events Post-Transplant Pre-Transplant Admitted: 10/25/2024 Referred: 08/13/2024 Transplanted: 10/26/2024 Evaluation began: Discharged: 11/02/2024 Committee: 10/14/2024 Center waitlisted: Pending Checklist Tasks (Due on or before 01/31/2025) Name Due Date Attached Appoint ment Social Work Consult 01/05/2025 Appointments (11/30/2024 - 01/31/2025) When With Visit Type Description 12/09/2024 Txp Kady De La Rosa Established Patient Encounter for therapeutic drug monitoring (Primary Dx); S/P liver transplant ([facility]); Hypomagnesemia; Kidney transplant recipient; Hypertension, unspecified type; Gastroesophageal reflux disease, unspecified whether esophagitis present 12/09/2024 Txp Jose Hanna Established Patient Kidney transplant recipient (Primary Dx); Immunosuppressive management encounter following liver transplant ([facility]); Hypomagnesemia; S/P liver transplant ([facility]); Hypertension, unspecified type; Hyperparathyroidism ([facility])
--- OUTSIDE RECORDS SUMMARY | 2024-12-31 09:51 | XMS_ITS | Encounter Summary ---
Author Organization [facility] Address [address] [place] [address] Care Team Providers Care Sales And Service Associate Name Role Phone Enedina Mcguire NP Primary Care Provider [phone] Maureen Pantoja RN Unavailable Unavail able Source [...] release of HIV test results or diagnoses. [id number] Reason for Visit * Reason Comments Medication Refill Encounter Details Date Type Department Care Team (Late st Contact Info) Description 12/21/2024 Refill [facility] Liver Transplant at [address] [address] Lydia Sanchez MD [address] [place] [address] [place] [address] Encounter for therapeutic drug monitoring; S/P liver transplant ([facility]); Hypomagnesemia; Kidney transplant recipient; Hypertension, unspecified type; [...] for therapeutic drug monitoring S/P liver transplant ([facility]) Hypomagnesemia Disorders of magnesium metabolism Kidney transplant recipient Hypertension, unspecified type Gastroesophageal reflux disease, unspecified whether esophagitis present documented in this encounter Additional Health Concerns Infection Onset Date Last Indicated Resolved Time 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
--- OUTSIDE RECORDS SUMMARY | 2024-12-31 09:51 | XMS_ITS | Encounter Summary ---
Author Organization [employer] ([place], [place], [place], [place]) Address [address] [place] [address] Care Team Providers Care Slag Expander Name Role Phone Unavailable Primary Care Provider Unavailabl e Encounter Details Date Type Department Care Team (Late st Contact Info) Description 06/03/2018 Transcribed Document [facility] Family Medicine [address] [place] [address] ProviderEbenezer MD [address] [place] [address] Social History Tobacco Use Types [...] - Historical ProviderMD - 06/03/2018 12:08 PM CHAINSTITCH ELASTIC ATTACHER ED Triage Entered On: 06/03/2018 12:17 EST Performed On: 06/03/2018 12:12 EST by KANU VELEZ RN ED Triage Across the Room Triage Date/Time : 06/03/2018 12:12 EST Chief Complaint : lacerations to rt index and left middle finger s/p picking up a glass that shattered precinct captain. lacerations noted with bleeding controlled KANU [...] 12:17:41 EST) Problems(Active) HTN (hypertension) (SNOMED CT :8266044124 ) Name of Problem: HTN (hypertension) ; Recorder: KANU VELEZ RN; Confirmation: Confirmed ; Classification: Medical ; Code: [id number] ; Contributor System: Swipe.to ; Last Updated: 06/03/2018 12:14 EST ; Life Cycle Date: 06/03/2018 ; Life Cycle Status: Active ; Vocabulary: SNOMED CT Diagnoses(Active) Finger laceration Date: 06/03/2018 ; Diagnosis Type: Reason For Visit ; Confirmation: Complaint of ; Clinical Dx: Finger laceration ; Classification: Medical ; Clinical Service: Emergency medicine ; Code: PNED ; Probability: 0 ; Diagnosis Code: [id number] ED Height and Weight Height Source : Stated Height Entry Format : [place] Height, Feet : 6 ft(Converted to: 183 cm, 72 Inch) Height, Inches : 4 Inch(Converted to: 0 ft 4 Inch, 10.16 cm) Clinical Height : 193.04 cm Weight Source, ED : Standing scale Weight Entry Format : [place] Weight, Pounds : 265 lb Clinical Dosing Weight : 120.45 kg Body Surface Area (BSA) : 2.5 m2 Body Mass Index : 32.3 kg/m2 (HI) Leon Body Weight (IBW) : 85.74 kg KANU [...]
--- OUTSIDE RECORDS SUMMARY | 2024-12-31 09:51 | XMS_ITS | Encounter Summary ---
Author Organization [facility] Address [address] [place] [address] Care Team Providers Care Bullet Lubricant Mixer Name Role Phone Enedina Mcguire NP Primary Care Provider + [phone] Maureen Pantoja RN Unavailable Unavail able Source [...] release of HIV test results or diagnoses. [id number] Reason for Visit * Reason Comments Results Encounter Details Date Type Department Care Team (Late st Contact Info) Description 12/29/2024 Telephone [facility] Liver Transplant at [address] [address] Maureen Pantoja, RN Results Social [...] In the past 12 months has e [employer], gas, oil, or water [employer] threatened to shut off services in [...] Progress Notes * Maureen Pantoja RN - 12/29/2024 8:07 AM EDT Lab results from 12/23/24 reviewed. Renal panel stable. LFTs stable. FK 10.3 Current IS: FK 5 mg in AM and 6 mg in PM MMF 500 mg BID Prednisone 7.5 mg daily (decreased 12/18/24) Will continue to monitor as per previously [...] documented as of this encounter Care Teams Bullet Lubricant Mixer Relationship Specialty Start Date End Date Enedina Mcguire NP [address] [place] [address] PCP - General Internal Medicine 10/05/24 Maureen Pantoja, RN Txp Post Coordinator Transplant Hepatology 10/28/24 documented as of this encounter
--- OUTSIDE RECORDS SUMMARY | 2024-12-31 09:51 | XMS_ITS | Encounter Summary ---
Author Organization [employer] ([place], [place], [place], [place]) Address [address] [place] [address] Care Team Providers Care Crusher Name Role Phone Unavailable Primary Care Provider Unavailabl e Encounter Details Date Type Department Care Team (Late st Contact Info) Description 06/03/2018 Transcribed Document [facility] [place] [address] [place] [address] ProviderEbenezer MD [address] [place], [place] [id number] Social History Tobacco Use Types Packs/Day Years [...] - Historical ProviderMD - 06/03/2018 12:08 PM MARKETING CO OP ED Assessment Entered On: 06/03/2018 14:51 EST Performed On: 06/03/2018 13:50 EST by Lizeth Almeida, DIRECTOR OF MATERNITY SERVICES Quick Look Assessment Level of Consciousness : Alert Affect/Behavior : Calm, Cooperative Orientation : Oriented x 4 Skin Color : Other: [place] Skin Temperature : Warm Skin Description : Dry Lizeth Almeida, RN - 06/03/2018 14:50 EST ED General-Functional Assess Communication Barrier : None Primary Language : Uzbek Any Spiritual/Cultural Needs or Requests : No [...] Electronically signed by Luis Eduardo Ochoa Conversion Equal Opportunity Specialist Cerner at 08/29/2022 6:34 PM CDT documented in this encounter Plan of Treatment Not on file documented as of this encounter Visit Diagnoses Not on filedocumented in this encounter
--- OUTSIDE RECORDS SUMMARY | 2024-12-31 09:51 | XMS_ITS | Encounter Summary ---
Author Organization [employer] ([place], [place], [place], [place]) Address [address] [place] [address] Care Team Providers Care Double Surface Operator Name Role Phone Unavailable Primary Care Provider Carmen e Encounter Details Date Type Department Care Team (Late st Contact Info) Description 06/03/2018 Transcribed Document [facility] [place] [address] [place] [address] ProviderEbenezer MD [address] [place] [address] Social History Tobacco Use Types [...] - Historical ProviderMD - 06/03/2018 3:04 PM TELEVISION ENGINEER [address] [place] [address] Patient Information Name: JULIEN ZELAYA [...] [address] [place] [address] [employer] (1) Within 2 to 3 days Patient [...] off of the skin. General Instructions??? Take [id number]-[id number] and prescription medicines only as told by [...] 04/30/2006 Document Revised: 09/29/2016 Document Reviewed: 04/26/2015 [employer] Interactive Patient Education ? 2017 [employer] Allergies: No Known Medication Allergies Medication [...] verify that JULIEN ZELAYA was seen at [facility] Emergency Department on ,06/03/2018 15:04:17. This [...] Assistance with quitting is available by contacting 2-707-KNIS-NOW. This is a free resource providing counseling, [...] Electronic Communications Privacy Act 18 U.S.C. ???Sections 7194-0420,?? and contain information intended for the specified [...] sure to sign up for the [facility] patient portal, which gives you 04/12 access to your medical information ??? including these discharge instructions ??? using your computer, smartphone, or tablet. Just go to goBramble to get started. Questions? Call . Acknowledgment [...]
--- OUTSIDE RECORDS SUMMARY | 2024-12-31 09:51 | XMS_ITS | Encounter Summary ---
Author Organization [employer] ([place], [place], [place], [place]) Address [address] [place] [address] Care Team Providers Care Business Development Engineer Name Role Phone Unavailable Primary Care Provider Unavailabl e Encounter Details Date Type Department Care Team (Late st Contact Info) Description 06/03/2018 Transcribed Document [facility] [place] [address] [place] [address] ProviderEbenezer MD [address] [place], [place] [id number] Social History Tobacco Use Types Packs/Day Years [...] - Historical ProviderMD - 06/03/2018 3:03 PM AG SERVICE MANAGER ED Discharge Entered On: 06/03/2018 15:03 EST Performed On: 06/03/2018 15:03 EST by Lizeth Almeida, assembler seat Process Patient Disposition : Discharge Personal Belongings [...] 06/03/2018 15:03 EST Electronically signed by Gabriela [facility] Conversion Hosiery Bagger Celia at 08/29/2022 6:35 PM CDT documented in this encounter Plan of Treatment Not on file documented as of this encounter Visit Diagnoses Not on filedocumented in this encounter
--- OUTSIDE RECORDS SUMMARY | 2024-12-31 09:51 | XMS_ITS | Encounter Summary ---
Author Organization [facility] Address [address] [place] [address] Care Team Providers Care Athletic Coach Name Role Phone Enedina Mcguire NP Primary Care Provider + [phone] Maureen Pantoja RN Unavailable Unavail able Source [...] release of HIV test results or diagnoses. [id number] Health Encounter Details Date Type Department Care Team (Late st Contact Info) Description 11/18/2024 Chart Note [facility] Liver Transplant at [address] [place] [phone] Marlene Ro MA Social History Tobacco Use [...] Recorded In the past 12 months has [employer], gas, oil, or water [employer] threatened to shut off services in your [...] w/o EGFR (11/13/2024 8:44 AM EDT) Pathologist [facility] Glucose 108 mg/dL BUN 25(A) 4 - [...] Resulting Agency Comment [facility] us Historical Provider LAB BLOOD ORDERABLES Denisse l Result * Tacrolimus level (11/13/2024 8:44 AM EDT) Pathologist [facility] Tacrolimus Lvl 10.9 6 - 15 ng/mL Whole Blood Narrative Resulting Agency Comment [facility] Historical Provider LAB BLOOD ORDERABLES Denisse l Result * (ABNORMAL) CBC and differential (11/13/2024 8:44 AM EDT) Pathologist [facility] Hemoglobin 9.8(A) 13.5 - 17.5 g/dL Hematocrit [...] 5.7 10^3/mL Blood Narrative Resulting Agency [facility] [...] documented as of this encounter Care Teams Athletic Coach Relationship Specialty Start Date End Date Enedina Mcguire NP [address] [place] [address] PCP - General Internal Medicine 10/05/24 Maureen Pantoja, RN Txp Post Coordinator Transplant Hepatology 10/28/24 documented as of this encounter
--- OUTSIDE RECORDS SUMMARY | 2024-12-31 09:51 | XMS_ITS | Encounter Summary ---
Author Organization [facility] Address [address] [place] [address] Care Team Providers Care Fire Management Specialist Name Role Phone Enedina Mcguire NP Primary Care Provider + [phone] Maureen Pantoja RN Unavailable Unavail able Source [...] release of HIV test results or diagnoses. [id number] Reason for Visit * Reason Comments Results Encounter Details Date Type Department Care Team (Riky st Contact Info) Description 11/18/2024 Telephone [facility] Liver Transplant at [address] [address] Maureen Pantoja, RN Results Social [...] In the past 12 months has [employer], gas, oil, or water [employer] threatened to shut off services in your [...] as of this encounter Care Teams Fire Management Specialist Relationship Specialty Start Date End Date Enedina Mcguire NP [address] [place] [address] PCP - General Internal Medicine 10/05/24 Maureen Pantoja, RN Txp Post Coordinator Transplant Hepatology 10/28/24 documented as of this encounter
--- OUTSIDE RECORDS SUMMARY | 2024-12-31 09:51 | XMS_ITS | Referral Summary ---
Author Organization [facility] ([place], [place], [place], [place]) Address [address] [place] [address] Care Team Providers Care Director Toxicology Name Role Phone Unavailable Primary Care Provider [...]
--- OUTSIDE RECORDS SUMMARY | 2024-12-31 09:51 | XMS_ITS | Encounter Summary ---
Author Organization [facility] ([place], [place], [place], [place]) Address [address] [place] [address] Care Team Providers Care Axle Inspector Name Role Phone Unavailable Primary Care Provider Unavailabl e Encounter Details Date Type Department Care Team (Late st Contact Info) Description 06/03/2018 Transcribed Document [facility] Family Medicine [address] [place] [address] ProviderEbenezer MD [address] [place], [place] [id number] Social History Tobacco Use Types Packs/Day Years [...] - Historical ProviderMD - 06/03/2018 2:24 PM DATA PROCESSING MANAGER Electronically signed by Gabriela [facility] Conversion Dairy Lab Technician Cerner at 08/29/2022 6:41 PM CDT documented in this encounter Plan of Treatment Not on file documented as of this encounter Visit Diagnoses Not on filedocumented in this encounter
--- OUTSIDE RECORDS SUMMARY | 2024-12-31 09:51 | XMS_ITS | Clinical Summary ---
Author Organization [employer] ([place], [place], [place], [place]) Address [address] [place] [address] Care Team Providers Care Design Maintenance Engineer Name Role Phone Unavailable Primary Care [...]
--- OUTSIDE RECORDS SUMMARY | 2024-12-31 09:51 | XMS_ITS ---
Author Organization [facility] Address [address] [place] [address] Care Team Providers Care Pasting Machine Operator Name Role Phone Enedina Mcguire NP Primary Care Provider [phone] Maureen Pantoja RN Unavailable Unavail able Transplant Episode Kidney Recipient [facility] ([place], [place]) - [facility] Organ Received: Left Kidney Transplanted on 10/27/2024 Marked as Active Follow-up on 10/27/2024 Kidney CoordinatorJosr Weber RN Phone: N/A Fax: N/A Email: N/A [place] Organ Diagnosis Organ Primary Contributory Kidney Hepatorenal [...] N/A N/A Flaquito Mayen MD Txp Surgeon [phone] N/A Bruno Gonzalez MD Txp Ticket Printer And Tagger [phone] N/A Yovanny Curran MD Referring Physician [phone] N/A Events Post-Transplant Pre-Transplant Admitted: 10/25/2024 Referred: 10/07/2024 Transplanted: 10/27/2024 Evaluation began: Discharged: 11/02/2024 Committee: 10/20/2024 Center waitlisted: 5
[2024-12-31 10:15] LABS: Hematocrit 33.0 % (42.0-52.0); Hemoglobin 11.4 g/dL (14.1-18.0); Immature Granulocytes % 1.3 %; Mean Corpuscular HGB Conc 34.5 g/dL (31.8-35.4); Mean Corpuscular Hemoglobin 32.5 pg (27.0-31.2); Mean Corpuscular Volume 94.0 fl (80-94); Nucleated Red Blood Cells % 0 %; Platelet Count 119 K/mm3 (142-424); Red Blood Count 3.51 M/mm3 (4.60-6.20); Red Cell Distribution Width-SD 54.4 fL; White Blood Count 3.0 K/mm3 (4.8-10.8)
[2024-12-31 10:23] LABS: Bilirubin,Urine Negative (Negative); Color,Urine YELLOW (Yellow); Glucose,Urine (UA) Negative (Negative); Ketones,Urine Negative (Negative); Leukocyte Esterase,Urine Negative (Negative); PH,Urine 5.5 (5.0-8.5); Protein,Urine Negative (Negative); Specific Gravity, Urine 1.025 (1.005-1.030); Urobilinogen,Urine 0.2 EU/dl (0.2)
[2024-12-31 10:39] LABS: Bacteria,Urine Trace /lpf; RBC,Urine Occasional #/hpf (0-3); Squamous Epithelial Cell,Urine Occasional #/hpf (0-5)
[2024-12-31 11:37] LABS: Alanine Aminotransferase 14 U/L (12-78); Albumin Level 4.5 g/dl (3.5-5.0); Alkaline Phosphatase 66 U/L (38-126); Anion Gap 14.2 mEq/L (5-15); Aspartate Amino Transferase 22 U/L (17-59); Bilirubin,Direct 0.1 mg/dl (0.0-0.4); Bilirubin,Indirect 0.4 mg/dL (0.0-0.9); Bilirubin,Total 0.5 mg/dl (0.2-1.3); Bilirubin,Unconjugated 0.4 mg/dL (0.0-1.1); Blood Urea Nitrogen 18 mg/dl (9-20); Calcium 9.5 mg/dl (8.4-10.2); Carbon Dioxide 26 mmol/L (22.0-30.0); Chloride 105 mmol/L (98-107); Creatinine,Serum 0.90 mg/dl (0.66-1.25); Estimated Glomerular Filt Rate 93 ml/min (>60); GFR (African American) 113 ML/MIN (>60); Glucose 91 mg/dl (74-100); Magnesium 1.2 mg/dl (1.6-2.3); Phosphorous 4.8 mg/dl (2.5-4.5); Potassium 4.2 mmoL/L (3.5-5.1); Sodium 141 mmol/L (136-145); Total Protein,Serum 6.4 g/dl (6.3-8.2)
[2025-01-01 17:13] LABS: BKV DNA, Quant PCR, Plasma Negative (Negative)
[2025-01-04 00:09] LABS: Tacrolimus (FK506), Blood 8.0 ng/mL (5.0-20.0)
== END 2024-12-31 23:59 | disposition home or self-care (01) ==
LOC: LAB 09:38
PROVIDERS: PCP Nurse Practitioner Family; Visit Provider Surgery
DX: D84.9 Immunodeficiency, unspecified (principal); Z94.0 Kidney transplant status; Z94.4 Liver transplant status; Z20.828 Contact with and (suspected) exposure to other viral communicable diseases; K74.60 Unspecified cirrhosis of liver; R18.8 Other ascites; Z79.60 Long term (current) use of unspecified immunomodulators and immunosuppressants
CPT/HCPCS: 36415; 80069; 80076; 80197; 81001; 82570; 83735; 84156; 85025; 87086; 87799

== ENCOUNTER 2025-01-05 09:18 | Outpatient (CLI) | payer OTHER, SELFPAY ==
--- OUTSIDE RECORDS SUMMARY | 2024-11-04 08:40 | XMS_ITS | Encounter Summary ---
Author Organization [facility] Address [address] [place] [address] Care Team Providers Care Kiln Operator Helper Name Role Phone Enedina Mcguire NP Primary Care Provider + [phone] Maureen Pantoja RN Unavailable Unavail able Source [...] release of HIV test results or diagnoses. [id number] Reason for Visit * Reason Comments Liver Transplant Follow-up Encounter Details Date Type Department Care Team (Late st Contact Info) Description 11/04/2024 8:40 AM EDT Office Visit [facility] Liver Transplant at [address] [address] Cosmo Pacheco MD [address] [place] [address] Liver/[place] [address] Liver transplant recipient (CMS-HCC) (Primary [...] the past 12 months has th e [employer], gas, oil, or water company threatened to [...] living in a assisted (including now)? No 10/29/2024 Yearly Questionnaire Answer [...] Nutrition: patient continues close f/u w/ transplant bag patcher. - Bone health: Vit D level to be drawn ~POD#90. - Labs: Labs (CBC w/ diff, renal panel, liver panel, tacro level) twice a week. Lipid panel, [id number] Vit D level to be drawn at [...] management for this patient. Cosmo Pacheco MD Hospice Nurse Practitioner of Transplant Surgery [phone] (m) [1] Allergies Allergen Reactions Adhesive Itching [...] encounter Visit Diagnoses Diagnosis Liver transplant recipient ([facility])- Primary Alcoholic cirrhosis of liver with ascites ([facility]) Kidney transplant recipient Acute kidney injury superimposed on CKD ([facility]) CKD (chronic kidney disease) stage 4, GFR 15-29 ml/min ([facility]) Chronic kidney disease, Stage IV (severe) Immunosuppressive management encounter following liver transplant ([facility]) Abdominal pain, unspecified abdominal location documented in this encounter Additional Health Concerns Infection Onset Date Last Indicated Resolved Time 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
--- OUTSIDE RECORDS SUMMARY | 2024-11-04 10:10 | XMS_ITS | Encounter Summary ---
Author Organization [facility] Address [facility] [place] [address] Care Team Providers Care Delicatessen Goods Stock Clerk Name Role Phone Enedina Mcguire NP Primary Care Provider + [phone] Maureen Pantoja RN Unavailable Unavail able Source [...] release of HIV test results or diagnoses. [id number] Reason for Visit * Reason Comments Kidney Transplant Follow-up Encounter Details Date Type Department Care Team (Late st Contact Info) Description 11/04/2024 10:10 AM EDT Office Visit [facility] Liver Transplant at [facility] [address] [facility] [address] [place] [address] Leisa Juarez MD [facility] 2nd Floor [place] [address] Kidney transplant recipient (Primary Dx); [...] the past 12 months has th e [employer], [employer], oil, or water [employer] threatened to shut off services in your [...] packing; Surgeon: Harvey Domínguez III, MD; Location: [facility]; Service: Transplant; Laterality: N/A; Family History: No [...] Strain: Low Risk (07/09/2024) Received from [facility] Overall Financial Resource Strain (CARDIA) Difficulty [...] (07/14/2024) Received from [facility] [employer] [place] [employer]ational Health - Occupational Stress Questionnaire Feeling of Stress : Patient unable to answer Social Connections: Patient Unable To Answer (07/14/2024) Received from [facility] Social Connection and Isolation Panel [NHANES] Frequency of Communication with Friends and Family: Patient unable to answer Frequency of Social Gatherings with Friends and Family: Patient unable to answer Attends Muslim Services: Patient unable to answer Active Member [...] = 12 units lancets (ACCU-CHEK SOFTCLIX LANCETS) [facility] Use to test blood sugar up [...] times a day. naloxone (NARCAN) 4 mg/actuation [place] Apply 1 spray in one nostril [...] Results Component Value Date PTH 36.0 10/25/2024 [id number] 7.1 (L) 10/08/2024 Hemoglobin A1C: Lab Results [...] - 2.5 mg/dL 11/25/2024 10:20 AM EDT [facility] Plasma 11/25/2024 8:42 AM EDT 11/25/2024 9:47 AM EDT Yareli Zaragoza [facility] BLOOD ORDERABLES Denisse l Result Performing Organization Address City/[facility]/ZIP Co de Phone Number [facility] [address] * (ABNORMAL) Magnesium (11/11/2024 9:13 AM EDT) Magnesium 1.2(L) 1.5 - 2.5 mg/dL 11/11/2024 10:51 AM EDT [facility] Plasma 11/11/2024 9:13 AM EDT 11/11/2024 10:19 AM EDT Yareli Zaragoza [facility] BLOOD ORDERABLES Denisse l Result [facility] [address] * (ABNORMAL) Post Kidney Transplant Urine Culture (11/11/2024 9:13 AM EDT) Culture Result Enterococcus faecium(A) [facility] Comment: <1,000 cfu/mL Identified by MALDI-TOF MS No Further Workup Midstream Urine URINE SPECIMEN / Unknown 11/11/2024 9:13 AM EDT 11/11/2024 10:17 AM EDT Yareli Zaragoza CNP MICROBIOLOGY - GENERAL OR DERABLES Final Result Performing Organization Address [facility] Co de Phone Number [facility] [address] [facility] * Protein / creatinine ratio, urine (11/11/2024 9:13 AM EDT) Creatinine, Urine 71.40 mg/dL 11/11/2024 10:38 AM EDT [facility] Comment:Reference range not established for this test. Total Protein, Ur 28 mg/dL 11/11/2024 10:38 AM EDT [facility] Comment:Reference range not established for this test. Prot/Creat Ratio, Ur 0.39 ratio 11/11/2024 10:38 AM EDT [facility] Urine 11/11/2024 9:13 AM EDT 11/11/2024 10:12 AM EDT us Yareli Zaragoza CNP URINE ORDERABLES Final Re sult Performing Organization Address [facility]/ZIP Co de Phone Number [facility] [address] [facility]. [address] * (ABNORMAL) Urinalysis w/Rfl to Microscopic (11/11/2024 9:13 AM EDT) Color, UA Straw Yellow,Straw 11/11/2024 10:36 AM EDT [facility] Clarity, UA Clear Clear 11/11/2024 10:36 AM EDT [facility] Specific [place], UA 1.015 1.005 - 1.035 11/11/2024 10:36 AM EDT [facility] pH, UA 6.0 5.0 - 8.0 11/11/2024 10:36 AM EDT [facility] Protein, UA Negative Negative mg/dL 11/11/2024 10:36 AM EDT [facility] Glucose, UA Negative Negative mg/dL 11/11/2024 10:36 AM EDT [facility] Ketones, UA Negative Negative mg/dL 11/11/2024 10:36 AM EDT [facility] Bilirubin, UA Negative Negative 11/11/2024 10:36 AM EDT [facility] Blood, UA Small(A) Negative 11/11/2024 10:36 AM EDT [facility] Nitrite, UA Negative Negative 11/11/2024 10:36 AM EDT [facility] Urobilinogen, UA <2.0 0.2 - 1.9 mg/dL 11/11/2024 10:36 AM EDT [facility] Leukocyte Esterase, UA Negative Negative 11/11/2024 10:36 AM EDT [facility] RBC, UA 13(H) 0 - 3 /HPF 11/11/2024 10:36 AM EDT [facility] WBC, UA 4 0 - 5 /HPF 11/11/2024 10:36 AM EDT [facility] Urine 11/11/2024 9:13 AM EDT 11/11/2024 10:10 AM EDT Yareli Zaragoza TUFTING MACHINE OPERATOR URINE ORDERABLES Final Re sult Performing Organization Address [facility]/ZIP Co de Phone Number [facility] [address] * (ABNORMAL) Magnesium (11/04/2024 8:46 AM EDT) Magnesium 1.0(L) 1.5 - 2.5 mg/dL 11/04/2024 10:06 AM EDT [facility] Plasma 11/04/2024 8:46 AM EDT 11/04/2024 9:32 AM EDT Yareli Zaragoza [facility] BLOOD ORDERABLES Denisse l Result Performing Organization Address [facility]/ZIP Co de Phone Number [facility] [address] * (ABNORMAL) Post Kidney Transplant Urine Culture (11/04/2024 8:46 AM EDT) Culture Result Enterococcus faecium, Vancomycin Resistant(A) [facility] Comment: 1,000- <10,000 [...] OR DERABLES Final Result Performing Organization Address [facility] Co de Phone Number [facility] [address] [facility] * Protein / creatinine ratio, urine (11/04/2024 8:46 AM EDT) Creatinine, Urine 37.30 mg/dL 11/04/2024 2:55 PM EDT [facility] Comment:Reference range not established for this test. Total Protein, Ur 42 mg/dL 11/04/2024 2:55 PM EDT [facility] Comment:Reference range not established for this test. Prot/Creat Ratio, Ur 1.13 ratio 11/04/2024 2:55 PM EDT [facility] Urine 11/04/2024 8:46 AM EDT 11/04/2024 9:32 AM EDT Yareli Zaragoza CNP URINE ORDERABLES Final Re sult Performing Organization Address [facility]/ZIP Co de Phone Number [facility] [address] [facility] * (ABNORMAL) Urinalysis w/Rfl to Microscopic (11/04/2024 8:46 AM EDT) Color, UA Straw Yellow,Straw 11/04/2024 10:07 AM EDT [facility] Clarity, UA Clear Clear 11/04/2024 10:07 AM EDT [facility] Specific [place], UA 1.012 1.005 - 1.035 11/04/2024 10:07 AM EDT [facility] pH, UA 6.5 5.0 - 8.0 11/04/2024 10:07 AM EDT [facility] Protein, UA Trace(A) Negative mg/dL 11/04/2024 10:07 AM EDT [facility] Glucose, UA Negative Negative mg/dL 11/04/2024 10:07 AM EDT [facility] Ketones, UA Negative Negative mg/dL 11/04/2024 10:07 AM EDT [facility] Bilirubin, UA Negative Negative 11/04/2024 10:07 AM EDT [facility] Blood, UA Large(A) Negative 11/04/2024 10:07 AM EDT [facility] Nitrite, UA Negative Negative 11/04/2024 10:07 AM EDT [facility] Urobilinogen, UA <2.0 0.2 - 1.9 mg/dL 11/04/2024 10:07 AM EDT [facility] Leukocyte Esterase, UA Negative Negative 11/04/2024 10:07 AM EDT [facility] RBC, UA >100(H) 0 - 3 /HPF 11/04/2024 10:07 AM EDT [facility] WBC, UA 2 0 - 5 /HPF 11/04/2024 10:07 AM EDT [facility] Bacteria, UA Rare(A) None Seen /HPF 11/04/2024 10:07 AM EDT [facility] Hyaline Casts, UA 3(H) 0 - 2 /LPF 11/04/2024 10:07 AM T [facility] Urine 11/04/2024 8:46 AM EDT 11/04/2024 9:33 AM EDT Yareli Zaragoza TUFTING MACHINE OPERATOR URINE ORDERABLES Final Re sult [facility] [address] [place] [address], [facility] documented in [...] documented as of this encounter Care Teams Delicatessen Goods Stock Clerk Relationship Specialty Start Date End Date Enedina Mcguire NP [address] [place] [address] PCP - General Internal Medicine 10/05/24 Maureen Pantoja, ЮЛИЯ Txp Post Coordinator Transplant Hepatology 10/28/24 documented as of this encounter
--- OUTSIDE RECORDS SUMMARY | 2024-11-11 08:50 | XMS_ITS | Encounter Summary ---
Author Organization [facility] Address [address] [place] [id number] Care Team Providers Care Associate Program Manager Name Role Phone Enedina Mcguire NP Primary Care Provider + [phone] Maureen Pantoja RN Unavailable Unavail able Source [...] release of HIV test results or diagnoses. [id number] Reason for Visit * Reason Comments Labs Only Encounter Details Date Type Department Care Team (Late st Contact Info) Description 11/11/2024 8:50 AM EDT Specimen [facility] [address] [place] [phone] Harvey Domínguez III, MD [address] [place] [address] [place] [phone] Liver replaced by transplant ([facility]); Immunosuppressive management encounter following liver transplant ([facility]); Kidney transplant recipient Social History [...] In the past 12 months has e [employer], or water company threatened to shut off [...] 9:13 AM EDT Liver replaced by transplant ([facility]) Immunosuppressive management encounter following liver transplant ([facility]) TACROLIMUS LEVEL Routine 11/11/2024 9:13 AM EDT [...] mg/dL 11/11/2024 10:51 AM EDT [facility] Plasma 11/11/2024 9:13 AM EDT 11/11/2024 10:19 AM EDT Caron Santos CNP LAB BLOOD ORDERABLES Denisse l Result Performing Organization Address [facility] Co de Phone Number [facility] [address] [facility] * (ABNORMAL) Post Kidney Transplant Urine Culture (11/11/2024 9:13 AM EDT) Culture Result Enterococcus faecium(A) [facility] Comment: <1,000 cfu/mL Identified by MALDI-TOF MS No Further Workup Midstream Urine URINE SPECIMEN / Unknown 11/11/2024 9:13 AM EDT 11/11/2024 10:17 AM EDT Caron Santos CNP MICROBIOLOGY - GENERAL OR DERABLES Final Result Performing Organization Address [facility] de Phone Number [facility] [address] * Protein / creatinine ratio, urine (11/11/2024 9:13 AM EDT) Creatinine, Urine 71.40 mg/dL 11/11/2024 10:38 AM EDT [facility] Comment:Reference range not established for this test. Total Protein, Ur 28 mg/dL 11/11/2024 10:38 AM EDT [facility] Comment:Reference range not established for this test. Prot/Creat Ratio, Ur 0.39 ratio 11/11/2024 10:38 AM EDT [facility] Urine 11/11/2024 9:13 AM EDT 11/11/2024 10:12 AM EDT Caron Santos CNP URINE ORDERABLES Final Re sult Performing Organization Address [facility]/ZIP Co de Phone Number [facility] [address] * (ABNORMAL) Urinalysis w/Rfl to Microscopic (11/11/2024 9:13 AM EDT) Color, UA Straw Yellow,Straw 11/11/2024 10:36 AM EDT [facility] Clarity, UA Clear Clear 11/11/2024 10:36 AM EDT [facility] Specific [place], UA 1.015 1.005 - 1.035 11/11/2024 10:36 AM EDT [facility] pH, UA 6.0 5.0 - 8.0 11/11/2024 10:36 AM EDT [facility] Protein, UA Negative Negative mg/dL 11/11/2024 10:36 AM EDT [facility] Glucose, UA Negative Negative mg/dL 11/11/2024 10:36 AM EDT [facility] Ketones, UA Negative Negative mg/dL 11/11/2024 10:36 AM EDT [facility] Bilirubin, UA Negative Negative 11/11/2024 10:36 AM EDT [facility] Blood, UA Small(A) Negative 11/11/2024 10:36 AM EDT [facility] Nitrite, UA Negative Negative 11/11/2024 10:36 AM EDT [facility] Urobilinogen, UA <2.0 0.2 - 1.9 mg/dL 11/11/2024 10:36 AM EDT [facility] Leukocyte Esterase, UA Negative Negative 11/11/2024 10:36 AM EDT [facility] RBC, UA 13(H) 0 - 3 /HPF 11/11/2024 10:36 AM EDT [facility] WBC, UA 4 0 - 5 /HPF 11/11/2024 10:36 AM EDT [facility] Urine 11/11/2024 9:13 AM EDT 11/11/2024 10:10 AM EDT us Caron Santos BLENDING TANK TENDER HELPER URINE ORDERABLES Final Re sult [facility] [address] [place] [address], [place] * (ABNORMAL) Differential (11/11/2024 9:13 AM EDT) Neutrophils Relative 69.3 40.0 - 80.0 % 11/11/2024 10:31 AM EDT [facility] Lymphocytes Relative 17.6 15.0 - 45.0 % 11/11/2024 10:31 AM EDT [facility] Monocytes Relative 8.5 0.0 - 12.0 % 11/11/2024 10:31 AM EDT [facility] Eosinophils Relative 2.0 0.0 - 8.0 % 11/11/2024 10:31 AM EDT [facility] Basophils Relative 2.6(H) 0.0 - 1.0 % 11/11/2024 10:31 AM EDT [facility] nRBC 0 0 - 0 /100 WBC 11/11/2024 10:31 AM EDT [facility] Neutrophils Absolute 4,920 1,520 - 8,640 /uL 11/11/2024 10:31 AM EDT [facility] Lymphocytes Absolute 1,250 570 - 4,860 /uL 11/11/2024 10:31 AM EDT [facility] Monocytes Absolute 604 0 - 1,296 /uL 11/11/2024 10:31 AM EDT [facility] Eosinophils Absolute 142 0 - 864 /uL 11/11/2024 10:31 AM EDT [facility] Basophils Absolute 185(H) 0 - 108 /uL 11/11/2024 10:31 AM EDT [facility] Whole Blood 11/11/2024 9:13 AM EDT 11/11/2024 10:19 AM EDT Narrative [facility] - 11/11/2024 10:31 AM EDT Standing orders to be drawn: Every Sunday and before 9am and prior to patient taking morning medications. Liver Transplant Fax results to [phone] Call Critical results to [phone] us Harvey Domínguez III, MD LAB BLOOD ORDERABLE S Final Result [facility] [address] [place] [address], [place] * (ABNORMAL) CBC (11/11/2024 9:13 AM EDT) WBC 7.1 3.8 - 10.8 10E3/uL 11/11/2024 10:31 AM EDT [facility] RBC 3.42(L) 4.20 - 5.80 10E6/uL 11/11/2024 10:31 AM EDT [facility] Hemoglobin 10.6(L) 13.2 - 17.1 g/dL 11/11/2024 10:31 AM EDT [facility] Hematocrit 31.3(L) 38.5 - 50.0 % 11/11/2024 10:31 AM EDT [facility] MCV 91.5 80.0 - 100.0 fL 11/11/2024 10:31 AM EDT [facility] MCH 31.0 27.0 - 33.0 pg 11/11/2024 10:31 AM EDT [facility] MCHC 33.8 32.0 - 36.0 g/dL 11/11/2024 10:31 AM EDT [facility] RDW 20.5(H) 11.0 - 15.0 % 11/11/2024 10:31 AM EDT [facility] Platelets 308 140 - 400 10E3/uL 11/11/2024 10:31 AM EDT [facility] MPV 6.1(L) 7.5 - 11.5 fL 11/11/2024 10:31 AM EDT [facility] Whole Blood 11/11/2024 9:13 AM EDT 11/11/2024 10:19 AM EDT Narrative [facility] - 11/11/2024 10:31 AM EDT Standing orders to be drawn: Every Sunday and before 9am and prior to patient taking morning medications. Liver Transplant Fax results to [phone] Call Critical results to [phone] us Harvey Domínguez III, MD LAB BLOOD ORDERABLE S Final Result [facility] [address] [place] [address], [facility] * (ABNORMAL) Renal Function Panel w/EGFR (11/11/2024 9:13 AM EDT) Sodium 141 133 - 146 mmol/L 11/11/2024 10:51 AM EDT [facility] Potassium 4.6 3.5 - 5.3 mmol/L 11/11/2024 10:51 AM EDT [facility] Chloride 108 98 - 110 mmol/L 11/11/2024 10:51 AM EDT [facility] CO2 24 21 - 33 mmol/L 11/11/2024 10:51 AM EDT [facility] Anion Gap 9 3 - 16 mmol/L 11/11/2024 10:51 AM EDT [facility] BUN 27(H) 7 - 25 mg/dL 11/11/2024 10:51 AM EDT [facility] Creatinine 1.14 0.60 - 1.30 mg/dL 11/11/2024 10:51 AM EDT [facility] Glucose 97 70 - 100 mg/dL 11/11/2024 10:51 AM EDT [facility] Calcium 8.6 8.6 - 10.3 mg/dL 11/11/2024 10:51 AM EDT [facility] Phosphorus 4.4 2.1 - 4.7 mg/dL 11/11/2024 10:51 AM EDT [facility] Albumin 3.8 3.5 - 5.7 g/dL 11/11/2024 10:[facility] Osmolality, Calculated 297 278 - 305 mOsm/kg 11/11/2024 10:51 AM EDT [facility] EGFR 83 11/11/2024 10:51 AM EDT [facility] [...] morning medications. Liver Transplant Fax results to [phone] Call Critical results to [phone] DO NOT REPLACE RENAL PANEL or HEPATIC FUNCTION PANEL w/ CMP, BMP or HEPATIC PROFILE us Harvey Domínguez III, MD LAB BLOOD ORDERABLE S Final Result [facility] [address] [place] [address], [facility] * (ABNORMAL) Hepatic Function Panel (11/11/2024 9:13 AM EDT) Total Bilirubin 1.0 0.0 - 1.5 mg/dL 11/11/2024 10:51 AM EDT [facility] Bilirubin, Direct 0.39 0.00 - 0.40 mg/dL 11/11/2024 10:51 AM EDT [facility] AST 15 13 - 39 U/L 11/11/2024 10:51 AM EDT [facility] ALT 26 7 - 52 U/L 11/11/2024 10:51 AM EDT [facility] Alkaline Phosphatase 125 36 - 125 U/L 11/11/2024 10:51 AM EDT [facility] Total Protein 5.9(L) 6.4 - 8.9 g/dL 11/11/2024 10:51 AM EDT [facility] Albumin 3.8 3.5 - 5.7 g/dL 11/11/2024 10:51 AM EDT [facility] Bilirubin, Indirect 0.61 0.00 - 1.10 mg/dL 11/11/2024 10:51 AM EDT [facility] Plasma 11/11/2024 9:13 AM EDT 11/11/2024 10:19 AM EDT Narrative [facility] - 11/11/2024 10:51 AM EDT Standing orders to be drawn: Every Sunday and before 9am and prior to patient taking morning medications. Liver Transplant Fax results to [phone] Call Critical results to [phone] DO NOT REPLACE RENAL PANEL or HEPATIC FUNCTION PANEL w/ CMP, BMP or HEPATIC PROFILE Harvey Domínguez III, MD LAB BLOOD ORDERABLE S Final Result Performing Organization Address [facility] Co de Phone Number [facility] [address] [facility] * Tacrolimus level (11/11/2024 9:13 AM EDT) [facility] Tacrolimus (LC-MS) 10.4 3.0 - 15.0 ng/mL 11/11/2024 1:22 PM EDT [facility] Comment:Performed via liquid chromatography tandem mass [...] 11/11/2024 10:19 AM EDT Narrative [facility] - 11/11/2024 1:22 PM EDT Standing orders to be drawn: Every Sunday and before 9am and prior to patient taking morning medications. Liver Transplant Fax results to [phone] Call Critical results to [phone] Harvey Domínguez III, MD LAB BLOOD ORDERABLE S Final Result Performing Organization Address City/[facility]/ZIP Co de Phone Number [facility] 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
--- OUTSIDE RECORDS SUMMARY | 2024-11-11 09:30 | XMS_ITS | Encounter Summary ---
Author Organization [facility] Address [address] [place] [address] Care Team Providers Care A Auxiliary Name Role Phone Enedina Mcguire NP Primary Care Provider + [phone] Maureen Pantoja RN Unavailable Unavail able Source [...] release of HIV test results or diagnoses. [id number] Health Encounter Details Date Type Department Care Team (Late st Contact Info) Description 11/11/2024 9:30 AM EDT Office Visit [facility] Psychiatry Transplant at [facility] [address] [facility] [address] [place] [address] Craig Warren PsyD [address] [facility] [address] [place] [address] PTSD (post-traumatic stress disorder) (Primary [...] In the past 12 months has th [employer], [employer], or [employer] threatened to shut off services in [...] alcohol and CKD IIIb/IV. Seen by this manual writer for pre-surgical evaluation. PMH includes PTSD [...] documented as of this encounter Care Teams A Auxiliary Relationship Specialty Start Date End Date Enedina Mcguire NP [address] [place] [address] PCP - General Internal Medicine 10/05/24 Maureen Pantoja, RN Txp Post Coordinator Transplant Hepatology 10/28/24 documented as of this encounter
--- OUTSIDE RECORDS SUMMARY | 2024-11-11 10:00 | XMS_ITS | Encounter Summary ---
Author Organization [facility] Address [address] [place] [address] Care Team Providers Care Router Tender Name Role Phone Enedina Mcguire NP Primary Care Provider + [phone] Maureen Pantoja RN Unavailable Unavail able Source [...] release of HIV test results or diagnoses. [id number] Reason for Visit * Reason Comments Liver Transplant Follow-up Encounter Details Date Type Department Care Team (Late st Contact Info) Description 11/11/2024 10:00 AM EDT Office Visit [facility] Liver Transplant at [address] [address] Cosmo Pacheco MD [address] [place] [address] Liver/[place] [address] Harvey Domínguez III, MD [address] [place] [address] Encounter for therapeutic drug monitoring (Primary [...] the past 12 months has th e [employer], [employer], oil, or water [employer] threatened to shut off services in your [...] this encounter Progress Notes * Calista Baig, Liss[place] - 11/11/2024 10:00 AM EDT Transplant Pharmacist [...] = 12 units lancets (ACCU-CHEK SOFTCLIX LANCETS) Mis Use to [...] times a day. naloxone (NARCAN) 4 mg/actuation [place] Apply 1 spray in one nostril if [...] Radiology: Assessment and Plan: 39yo, POD#16 from [facility] for ETOH cirrhosis and HRS. Post operative [...] Nutrition: patient continues close f/u w/ transplant furniture removalist's assistant. - Bone health: Vit D level to be drawn ~POD#90. - Labs: Labs (CBC w/ diff, renal panel, liver panel, tacro level) twice a week. Lipid panel, [id number] Vit D level to be drawn at POD#90, HgbA1C and Vit D level to be drawn at POD#180. - Follow up: RTC 2 weeks Kemar Sahni MD, Fellow, Multiorgan Abdominal Transplant Surgery. [facility]. [1] Allergies Allergen Reactions Adhesive [...] documented as of this encounter Care Teams Router Tender Relationship Specialty Start Date End Date Enedina Mcguire NP [address] [place] [address] PCP - General Internal Medicine 10/05/24 Maureen Pantoja, RN Txp Post Coordinator Transplant Hepatology 10/28/24 documented as of this encounter
--- OUTSIDE RECORDS SUMMARY | 2024-11-11 10:30 | XMS_ITS | Encounter Summary ---
Author Organization [facility] Address [address] [place] [address] Care Team Providers Care Hand Bookbinder Name Role Phone Enedina Mcguire NP Primary Care Provider [phone] Maureen Pantoja RN Unavailable Unavail able Source [...] release of HIV test results or diagnoses. [id number] Reason for Visit * Reason Comments Kidney Transplant Follow-up Encounter Details Date Type Department Care Team (Late st Contact Info) Description 11/11/2024 10:30 AM EDT Office Visit [facility] Liver Transplant at [facility] [address] [facility] [address] [place] [address] Unknown, Attending Provider Seble Colon [address] [facility], [facility] [address] [place] [address] Kidney replaced by transplant (Primary [...] Resource Strain: Low Risk (07/09/2024) Received from [facility] Overall Financial Resource Strain (CARDIA) Difficulty of [...] Physical Activity: Unknown (07/14/2024) Received from [facility] Exercise Vital Sign Days of Exercise per Week: Patient unable to answer Minutes of Exercise per Session: Not on file Stress: Patient Unable To Answer (07/14/2024) Received from [facility] [place] of Occupational Health - Occupational Stress Questionnaire Feeling of Stress : Patient unable to answer Social Connections: Patient Unable To Answer (07/14/2024) Received from [facility] Social Connection and Isolation [...] Lastdose 11/26/24 blood sugar diagnostic (GLUCOSE BLOOD) [facility] Use to test blood sugar up to 4 times a day. blood-glucose meter (TRUE METRIX GLUCOSE METER) [facility] Use to test [...] = 12 units lancets (ACCU-CHEK SOFTCLIX LANCETS) [facility] Use to test [...] times a day. naloxone (NARCAN) 4 mg/actuation [place] Apply 1 spray in one nostril [...] Results Component Value Date PTH 36.0 10/25/2024 [id number] 7.1 (L) 10/08/2024 Hemoglobin A1C: Lab Results [...] documented as of this encounter Care Teams Hand Bookbinder Relationship Specialty Start Date End Date Enedina Mcguire NP [address] [place] [address] PCP - General Internal Medicine 10/05/24 Maureen Pantoja, RN Txp Post Coordinator Transplant Hepatology 10/28/24 documented as of this encounter
--- OUTSIDE RECORDS SUMMARY | 2024-11-25 09:00 | XMS_ITS | Encounter Summary ---
Author Organization [facility] Address [address] [place] [address] Care Team Providers Care Rfid Developer Name Role Phone Enedina Mcguire NP Primary Care Provider + [phone] Maureen Pantoja RN Unavailable Unavail able Source [...] release of HIV test results or diagnoses. [id number] Health Encounter Details Date Type Department Care Team (Late st Contact Info) Description 11/25/2024 9:00 AM EDT Procedure visit [facility] Urology at [place] [facility] [address] [facility] [address] [place] [address] Julieta Rogers PA 222 [facility] [address] [place] [address] Retained ureteral stent of transplanted kidney ([facility]-HCC) (Primary Dx) Social History Tobacco Use Types [...] the past 12 months has th e [employer], [employer], oil, or water company threatened to shut [...] used for procedure: Flex Uro Loaner 12 [facility] Urology Flexible Cystoscope Log Cystoscope Label Serial Number Model Flex Uro 1 [id number] Olympus CYF-VHR Flex Uro 2 [id number] Olympus CYF Type V2R Flex Uro 3 [id number] Olympus CYF Type V2R Flex Uro 4 8028034 Olympus CYF Type V2R Flex Uro 5 6755387 Olympus CYF Type V2R Flex Uro 6 0638750 Olympus CYF Type V2R Flex Uro 7 0998632 CYF VHR Flex Uro 8 6034564 CYF VHR Flex Uro 9 4187855 CYF VHR Flex Uro 10 3075149 CYF VHR Flex Uro 11 [id number] CYF VHR Flex Uro 12 9294922 CYF VHR Uro Loaner 12 [id number] CYF VHR Uro Loaner 13 [id number] CYF VHR Uro Loaner 14 [id number] CYF VHR * NAA Merida - 11/25/2024 [...] documented as of this encounter Care Teams Rfid Developer Relationship Specialty Start Date End Date Enedina Mcguire NP [address] [place] [address] PCP - General Internal Medicine 10/05/24 Maureen Pantoja, ЮЛИЯ Txp Post Coordinator Transplant Hepatology 10/28/24 documented as of this encounter
--- OUTSIDE RECORDS SUMMARY | 2024-11-25 10:20 | XMS_ITS | Encounter Summary ---
Author Organization [facility] Address [address] [place] [address] Care Team Providers Care Elementary Education Tutor Name Role Phone Enedina Mcguire NP Primary Care Provider + [phone] Alicia Rankin RN Unavailable Unavail able Source [...] release of HIV test results or diagnoses. [id number] Reason for Visit * Reason Comments Liver Transplant Follow-up Encounter Details Date Type Department Care Team (Late st Contact Info) Description 11/25/2024 10:20 AM EDT Office Visit [facility] Liver Transplant at [address] [place] [address] Lydia Sanchez MD [address] [place] [address] Liver/[place] [address] Encounter for therapeutic drug monitoring [...] the past 12 months has th e [employer], [employer], oil, or water company threatened to shut [...] Nutrition: patient continues close f/u w/ transplant game designer/creative director. - Bone health: Vit D level to be drawn ~POD#90. - Labs: Labs (CBC w/ diff, renal panel, liver panel, tacro level) twice a week. Lipid panel, [id number] Vit D level to be drawn at POD#90, HgbA1C and Vit D level to be drawn at POD#180. - Follow up: RTC 2 weeks Trinidad Godinez MD, Fellow, Multiorgan Abdominal Transplant Surgery. [facility]. [1] Allergies Allergen Reactions Adhesive Itching [...] per week. Follow up in 2 weeks. [place] out today. Stop fluconazole, eliquis, and torsemide. [...] therapeutic drug monitoring- Primary S/P liver transplant ([facility]) Hypomagnesemia Disorders of magnesium metabolism Kidney transplant [...] documented as of this encounter Care Teams Elementary Education Tutor Relationship Specialty Start Date End Date Enedina Mcguire NP [address] [place] [address] PCP - General Internal Medicine 10/05/24 Alicia Rankin, ЮЛИЯ Txp Post Coordinator Transplant Hepatology 10/28/24 documented as of this encounter
--- OUTSIDE RECORDS SUMMARY | 2024-11-25 10:50 | XMS_ITS | Encounter Summary ---
Author Organization [facility] Address [address] [place] [address] Care Team Providers Care Paper Baling Machine Operator Name Role Phone Enedina Mcguire NP Primary Care Provider + [phone] Maureen Pantoja RN Unavailable Unavail able Source [...] release of HIV test results or diagnoses. [id number] Reason for Visit * Reason Comments Liver Transplant Follow-up Encounter Details Date Type Department Care Team (Late st Contact Info) Description 11/25/2024 10:50 AM EDT Office Visit [facility] Liver Transplant at [address] [place] [address] Leisa Juarez MD [address] [place] [address] 2nd Floor [place] [address] Seble Colon [facility] [address] [place] [address] NADIYA (acute kidney injury) ([facility]) (Primary Dx); Kidney replaced by transplant; Metabolic [...] the past 12 months has th e [employer], oil, or water company threatened to shut [...] Hypertension Other hyperlipidemia 07/26/2024 Renal cell carcinoma ([facility]) Thrombocytopenia ([facility]) Thyroid disease Surgical History: Past Surgical History: [...] Activity: Unknown (07/14/2024) Received from [facility] Exercise Vital Sign Days of Exercise per Week: Patient unable to answer Minutes of Exercise per Session: Not on file Stress: Patient Unable To Answer (07/14/2024) Received from [facility] [place] of Occupational Health - Occupational Stress Questionnaire Feeling of Stress : Patient unable to answer Social Connections: Patient Unable To Answer (07/14/2024) Received from [facility] Social Connection and Isolation Panel [NHANES] Frequency of Communication with Friends and Family: Patient unable to answer Frequency of Social Gatherings with Friends and Family: Patient unable to answer Attends Buddhist Services: Patient unable to answer Active Member [...] day. blood-glucose meter (TRUE METRIX GLUCOSE METER) [facility] Use to test [...] = 12 units lancets (ACCU-CHEK SOFTCLIX LANCETS) [facility] Use to test [...] times a day. naloxone (NARCAN) 4 mg/actuation [place] Apply 1 spray in one nostril if [...] Results Component Value Date PTH 36.0 10/25/2024 [id number] 7.1 (L) 10/08/2024 Hemoglobin A1C: Lab Results [...] documented as of this encounter Care Teams Paper Baling Machine Operator Relationship Specialty Start Date End Date Enedina Mcguire NP [address] [place], [place] [id number] PCP - General Internal Medicine 10/05/24 Maureen Pantoja, RN Txp Post Coordinator Transplant Hepatology 10/28/24 documented as of this encounter
--- OUTSIDE RECORDS SUMMARY | 2024-12-04 14:15 | XMS_ITS | Encounter Summary ---
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 [facility] Utilities Answer Date Recorded In the past 12 months has [facility] [employer], gas, oil, or water [employer] threatened to shut off services in your [...] Brief Depression Severity Measure Score 0 10/02/2022 [facility] of Occupat ional Health - Occupational Stress [...] GED or equivalent No 07/09/2024 Preferred Language Andorran 07/09/2024 PHQ-2 Answer Date Recorded Patient Health [...] 2:15 PM EDT Referring Physician: Enedina Mcguire, WEAPONS AND TACTICS INSTRUCTOR [address] [place] [address] Primary Physician: Enedina Mcguire APRN CHIEF COMPLAINT [...] has had kidney and liver transplant at [facility] since his last office visit. Additionally, he has been started on Dilaudid 2 mg every 6 hours and gabapentin 100 mg 3 times daily by one of his transplant providers at the [facility]. He was previously prescribed tramadol 50 mg 1 to 2 tablets daily as needed. Patient reports he is following up weekly with his transplant providers at the [facility]. Continues to have some chronic neck [...] Surgeon: Presley Montes De Oca MD; Location: [facility]; Service: Gastroenterology; Laterality: N/A; ENDOSCOPY N/A 07/29/2022 Procedure: ESOPHAGOGASTRODUODENOSCOPY; Surgeon: Presley Montes De Oca MD; Location: [facility]; Service: Gastroenterology; Laterality: N/A; WITH APC [...] 6 hours from transplant providers at the [facility] for postoperative pain for the last [...] provided from his transplant team at the [facility]. Additionally, this did reveal positive THC. Tramadol [...] Referrals: None indicated 9. Records: Kristofer reviewed; [facility] notes reviewed 10. Lifestyle goals: Follow-up 1 month for medication management [facility] Pain Management Dawn Christie PA-C documented in this encounter Plan of Treatment Upcoming Encounters Date Type Department Care Team (Late st Contact Info) Description 04/02/2025 2:15 PM EST Office Visit [facility]EMENT [address] [facility] [address] [place] [address] Dawn Christie PA-C [address] [facility] [address] [place] [address] documented as of this encounter Results * (ABNORMAL) Urine Drug Screen - Urine, Clean Catch (12/04/2024 2:50 PM EDT) THC, Screen, Urine Positive(A) Negative 12/04 8:32 PM EDT [facility] Phencyclidine (PCP), Urine Negative Negative 12/04/2024 8:32 PM EDT [facility] Cocaine Screen, Urine Negative Negative 12/04/2024 8:32 PM EDT [facility] Methamphetamine, Ur Negative Negative 12/04/2024 8:32 PM EDT [facility] Opiate Screen Positive(A) Negative 12/04/2024 8:32 PM EDT [facility] Amphetamine Screen, Urine Negative Negative 12/04/2024 8:32 PM EDT [facility] Benzodiazepine Screen, Urine Negative Negative 12/04/2024 8:32 PM EDT [facility] Tricyclic Antidepressants Screen Negative Negative 12/04/2024 8:32 PM EDT [facility] Methadone Screen, Urine Negative Negative 12/04/2024 8:32 PM EDT [facility] Barbiturates Screen, Urine Negative Negative 12/04/2024 8:32 PM EDT [facility] Oxycodone Screen, Urine Negative Negative 12/04/2024 8:32 PM EDT [facility] Buprenorphine, Screen, Urine Negative Negative 12/04/2024 8:32 PM EDT [facility] Urine Urine specimen obtained by clean catch procedure / Unknown Collection / Unknown 12/04/2024 2:50 PM EDT 12/04/2024 2:54 PM EDT Narrative [facility] - 12/04/2024 8:32 PM EDT [...] Christie PA-C URINE ORDERABLES Final R esult [facility]
[address] [phone] documented in this encounter Visit Diagnoses Diagnosis [...] documented as of this encounter Care Teams Dba Developer Relationship Specialty Start Date End Date Enedina Mcguire APRN [address] [place] [address] PCP - General Nurse Practitioner 10/27/24 documented as of this encounter
--- OUTSIDE RECORDS SUMMARY | 2024-12-04 14:55 | XMS_ITS | Encounter Summary ---
Author Organization [facility] Address [address] [place] [address] Care Team Providers Care Computer Field Technician Name Role Phone Enedina Mcguire APRN Primary Care Provider + Encounter Details Date Type Department Care Team (Late st Contact Info) Description 12/04/2024 2:55 PM EDT Lab [facility] [place] [address] [place] [address] Therapeutic drug monitoring Social History [...] Recorded In the past 12 months has [employer], [employer], oil, or water [employer] threatened to shut off services in your [...] Score 0 10/02/2022 [facility] - Occupational Stress Questionnaire Answer [...] GED or equivalent No 07/09/2024 Preferred Language Kinyarwanda 07/09/2024 PHQ-2 Answer Date Recorded Patient Health [...] Description 04/02/2025 2:15 PM EST Office Visit [facility] [address] [address] Vazquez Christie PA-C [address] [place] [address] documented as of this encounter Procedures Procedure Name Priority Date/Time Associated Diagnosis Comments URINE DRUG SCREEN Routine 12/04/2024 2:5 0 PM EDT Therapeutic drug monitoring FENTANYL, URINE Routine 12/04/2024 2:50 PM EDT Therapeutic drug monitoring documented in this encounter Results * Fentanyl, Urine - Urine, Clean Catch (12/04/2024 2:50 PM EDT) Fentanyl, Urine Negative Negative 12/04/2024 9:15 PM EDT [facility] Urine Urine specimen obtained by clean catch procedure / Unknown Collection / Unknown 12/04/2024 2:50 PM EDT 12/04/2024 2:54 PM EDT Narrative [facility] - 12/04/2024 9:15 PM [...] Urbanp PA-C URINE ORDERABLES Final R esult [facility]
[address] [place] [address], * (ABNORMAL) Urine Drug Screen - Urine, Clean Catch (12/04/2024 2:50 PM EDT) THC, Screen, Urine Positive(A) Negative 12/04 8:32 PM EDT [facility] Phencyclidine (PCP), Urine Negative Negative 12/04/2024 8:32 PM EDT [facility] Cocaine Screen, Urine Negative Negative 12/04/2024 8:32 PM EDT [facility] Methamphetamine, Ur Negative Negative 12/04/2024 8:32 PM EDT [facility] Opiate Screen Positive(A) Negative 12/04/2024 8:32 PM EDT [facility] Amphetamine Screen, Urine Negative Negative 12/04/2024 8:32 PM EDT [facility] Benzodiazepine Screen, Urine Negative Negative 12/04/2024 8:32 PM EDT [facility] Tricyclic Antidepressants Screen Negative Negative 12/04/2024 8:32 PM EDT [facility] Methadone Screen, Urine Negative Negative 12/04/2024 8:32 PM EDT [facility] Barbiturates Screen, Urine Negative Negative 12/04/2024 8:32 PM EDT [facility] Oxycodone Screen, Urine Negative Negative 12/04/2024 8:32 PM EDT [facility] Buprenorphine, Screen, Urine Negative Negative 12/04/2024 8:32 PM EDT [facility] Urine Urine specimen obtained by clean catch procedure / Unknown Collection / Unknown 12/04/2024 2:50 PM EDT 12/04/2024 2:54 PM EDT Narrative [facility] - 12/04/2024 8:32 PM [...] Otilio JACOME-Lalit URINE ORDERABLES Final R esult [facility]
[address] [place] [address], documented in this encounter Visit Diagnoses Diagnosis Therapeutic drug monitoring Encounter for therapeutic drug monitoring documented in this encounter Additional Health Concerns Assessment Noted Time PHQ-2 Depression Total Score: 1 12/31/19 24 3:25 PM EDT documented as of this encounter Care Teams Computer Field Technician Relationship Specialty Start Date End Date Enedina Mcguire APRN [address] [place] [address] PCP - General Nurse Practitioner 10/27/24 documented as of this encounter
--- OUTSIDE RECORDS SUMMARY | 2024-12-09 09:50 | XMS_ITS | Encounter Summary ---
Author Organization [facility] Address [address] [place] [address] Care Team Providers Care Piece Meat Trimmer Name Role Phone Enedina Mcguire NP Primary Care Provider + [phone] Maureen Pantoja RN Unavailable Unavail able Source [...] release of HIV test results or diagnoses. [id number] Health Encounter Details Date Type Department Care Team (Late st Contact Info) Description 12/09/2024 9:50 AM EDT Office Visit [facility] Liver Transplant at [place] [address] [place] [address] Leisa Juarez MD [address] [place] [address] 2nd [place] [address] Kidney transplant recipient (Primary Dx); Immunosuppressive management encounter following liver transplant ([facility]); Hypomagnesemia; S/P liver transplant ([facility]); Hypertension, unspecified type; Hyperparathyroidism ([facility]) Social History Tobacco Use Types Packs/Day [...] liver (CMS-HCC) Esophageal varices (CMS-HCC) Hepatorenal syndrome ([facility]) Hypertension Other hyperlipidemia 07/26/2024 Renal cell carcinoma (CMS-HCC) Thrombocytopenia ([facility]) Thyroid disease Surgical History: Past Surgical History: [...] Activity: Unknown (07/14/2024) Received from [facility] Exercise Vital Sign Days of Exercise per Week: Patient unable to answer Minutes of Exercise per Session: Not on file Stress: Patient Unable To Answer (07/14/2024) Received from [facility] [place] of Occupational Health - Occupational Stress Questionnaire Feeling of Stress : Patient unable to answer Social Connections: Patient Unable To Answer (07/14/2024) Received from [facility] Social Connection and Isolation Panel [NHANES] Frequency of Communication with Friends and Family: Patient unable to answer Frequency of Social Gatherings with Friends and Family: Patient unable to answer Attends Latter-Day Services: Patient unable to answer Active Member [...] times a day. naloxone (NARCAN) 4 mg/actuation [place] Apply 1 spray in one nostril if [...] Results Component Value Date PTH 36.0 10/25/2024 [id number] 7.1 (L) 10/08/2024 Hemoglobin A1C: Lab Results [...] Discussed with Dr. Juarez. Lauren Santos, SAMSON, SPRING UP SUPERVISOR, MAINTENANCE AND REPAIR WORKER- Transplant Nephrology [phone] Preferred contact: secure chat The HPI, ROS, [...] Primary Immunosuppressive management encounter following liver transplant ([facility]) Hypomagnesemia Disorders of magnesium metabolism S/P liver transplant ([facility]) Hypertension, unspecified type Hyperparathyroidism ([facility]) Hyperparathyroidism, unspecified documented in this encounter Additional Health Concerns Infection Onset Date Last Indicated Resolved Time 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
--- OUTSIDE RECORDS SUMMARY | 2024-12-09 10:20 | XMS_ITS | Encounter Summary ---
Author Organization [facility] Address [address] [place] [address] Care Team Providers Care Senior Product Development Scientist Name Role Phone Enedina Mcguire NP Primary Care Provider + [phone] Maureen Pantoja RN Unavailable Unavail able Source [...] release of HIV test results or diagnoses. [id number] Reason for Visit * Reason Comments Liver Transplant Follow-up Encounter Details Date Type Department Care Team (Late st Contact Info) Description 12/09/2024 10:20 AM EDT Office Visit [facility] Liver Transplant at [address] [address] Harvey Domínguez III, MD [address] [place] [address] Encounter for therapeutic drug monitoring (Primary [...] the past 12 months has th e [employer], [employer], oil, or water company threatened to shut [...] Nutrition: patient continues close f/u w/ transplant repairer shoe sticks. - Bone health: Vit D level to [...] as of this encounter Care Teams Senior Product Development Scientist Relationship Specialty Start Date End Date Enedina Mcguire NP [address] [place] [address] PCP - General Internal Medicine 10/05/24 Maureen Pantoja, ЮЛИЯ Txp Post Coordinator Transplant Hepatology 10/28/24 documented as of this encounter
--- OUTSIDE RECORDS SUMMARY | 2024-12-09 11:45 | XMS_ITS | Encounter Summary ---
Author Organization [facility] Address [address] [place] [address] Care Team Providers Care Demo Coordinator Name Role Phone Enedina Mcguire NP Primary Care Provider + [phone] Maureen Pantoja RN Unavailable Unavail able Source [...] release of HIV test results or diagnoses. [id number] Health Encounter Details Date Type Department Care Team (Late st Contact Info) Description 12/09/2024 11:45 AM EDT Office Visit [facility] Psychiatry Transplant at [place] [id number] [phone] Rebekah Linares, [address] [place] [address] Alcohol use disorder (Primary Dx) Social History Tobacco Use Types Packs/Day Years Used Date Smoking Tobacco: Former Cigarettes Smokeless Tobacco: Current Alcohol Use Standard Drinks/Week Comments Yes 0 (1 standard drink = 0.6 oz pure alcohol) History of alcohol abuse, reports no use in 3 week- typically endorses use as 4 glasses of wine a days Utilities Answer Date Recorded In the past 12 months has [employer], gas, oil, or water [employer] threatened to shut off services in your [...] as of this encounter Progress Notes * SAMANTHA Shields - 12/09/2024 11:45 AM EDT Start Time: 11:40am End Time: 12:20pm Goals/objectives targeted: Pt will maintain sobriety. S: Pt was seen on this day by CD counselor for liver transplant team. Pt's brother also present. Ptrecently had a slip and drank wine one time since transplant. Pt reports that he just wanted to see if I could drink, and I'm kind of getting tired of not having any autonomy right now . Counseloractively listened and offered support. Counselor encouraged pt to talk to his addiction counselor about this slip. Pt's is aware of the slip as is brother, and other family members. Counselor provided pt with relapse prevention workbook. O: Pt was seen during post op visit by CD counselor due to pt drinking alcohol. Mental Status Exam Motor Behavior: no psychomotor abnormalities Cognition: short term and assisted memory intact Attitude: cooperative Affect: full range Appearance: appropriately dressed Speech: normal rate Mood: euthymic Thought Processes: well organized Perceptions: no hallucinations or other abnormalities Thought content: no delusions Insight/ judgement: no impairments Suicidal ideation: none Homicidal ideation: none A: Counselor observed pt to be open to discussing what caused him to drink alcohol. Pt wants to getback to work, he is bored and he does not have any coping skills at this time. P:Client will follow up with regular addictions counselor. 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
--- OUTSIDE RECORDS SUMMARY | 2024-12-18 14:00 | XMS_ITS | Encounter Summary ---
Author Organization [facility] Address [address] [place] [address] Care Team Providers Care Falsework Builder Name Role Phone Enedina Mcguire NP Primary Care Provider [phone] Maureen Pantoja RN Unavailable Unavail able Source [...] release of HIV test results or diagnoses. [id number] Reason for Visit * Auth/Cert (Routine) Specialty Diagnoses / Procedures Referred By Shane hernadez Referred To Contact Psychiatry [facility] Psychiatry Transplant at [address] [address] Phone: tel: fax: Referral ID Status Reason Start Date Expiration Date Visits Re quested Visits Authorized [id number] 1 1 Encounter Details Date Type Department Care Team (Late st Contact Info) Description 12/18/2024 2:00 PM EDT Office Visit [facility] Psychiatry Transplant at [address] [place] [phone] Craig Warren PsyD [address] [facility] [address] [place] [address] Alcohol use disorder (Primary Dx); [...] the past 12 months has th e [employer], [employer], oil, or water [employer] threatened to shut off services in your [...] alcohol and CKD IIIb/IV. Seen by this tag writer for pre-surgical evaluation. PMH includes PTSD [...] AUD Plan: No follow up with this tag writer indicated at this time Patient to [...] documented as of this encounter Care Teams Falsework Builder Relationship Specialty Start Date End Date Enedina Mcguire NP [address] [place] [address] PCP - General Internal Medicine 10/05/24 Maureen Pantoja, ЮЛИЯ Txp Post Coordinator Transplant Hepatology 10/28/24 documented as of this encounter
--- OUTSIDE RECORDS SUMMARY | 2025-01-01 14:15 | XMS_ITS | Encounter Summary ---
Author Organization [facility] Address [address] [place] [address] Care Team Providers Care Airborne Operations Manager Name Role Phone Enedina Mcguire APRN Primary Care Provider + Reason for Visit * Reason Comments Follow-up Neck Pain Back Pain Encounter Details Date Type Department Care Team (Late st Contact Info) Description 01/01/2025 2:15 PM EDT Office Visit [facility]IN [facility]GEMENT [address] [phone] Vazquez Christie PA-C 1760 [facility] [address] [place] [address] Cervical radiculopathy (Primary Dx); Long-term use of [...] 30 days sober on 08-05-2024 [facility] Utilities Answer Date Recorded In the past 12 months has [facility] [employer], gas, oil, or water [email or web address] threatened to shut off services in your [...] Brief Depression Severity Measure Score 0 10/02/2022 [facility] of Occupat ional Health - [...] liver transplant that took place at the [facility]. Patient does report he has not been [...] Surgeon: Presley Montes De Oca MD; Location: [facility] ENDOSCOPY; Service: Gastroenterology; Laterality: N/A; ENDOSCOPY N/A 07/29/2022 Procedure: ESOPHAGOGASTRODUODENOSCOPY; Surgeon: Presley Montes De Oca MD; Location: [facility] ENDOSCOPY; Service: Gastroenterology; Laterality: N/A; WITH APC [...] Referrals: None indicated 9. Records: [facility] reviewed; [facility] notes reviewed 10. Lifestyle goals: Follow-up 3 months [facility] Pain Management Vazquez Christie PA-C documented in this encounter Plan of Treatment Upcoming Encounters Date Type Department Care Team (Late st Contact Info) Description 04/02/2025 2:15 PM EST Office Visit [facility] PAIN MANAGEMENT [address] [phone] Vazquez Christie PA-C [address] [address] documented as of this encounter [...] documented as of this encounter Care Teams Airborne Operations Manager Relationship Specialty Start Date End Date Enedina Mcguire APRN [address] [place] [address] PCP - General Nurse Practitioner 10/27/24 documented as of this encounter
[2025-01-05 09:29] LABS: Microscopic, Urine URINE MICROSCOPIC (MICROSCOPIC)
[2025-01-05 09:45] LABS: Hematocrit 35.6 % (42.0-52.0); Hemoglobin 11.9 g/dL (14.1-18.0); Immature Granulocytes % 1.3 %; Mean Corpuscular HGB Conc 33.4 g/dL (31.8-35.4); Mean Corpuscular Hemoglobin 31.2 pg (27.0-31.2); Mean Corpuscular Volume 93.4 fl (80-94); Nucleated Red Blood Cells % 0 %; Platelet Count 108 K/mm3 (142-424); Red Blood Count 3.81 M/mm3 (4.60-6.20); Red Cell Distribution Width-SD 50.8 fL; White Blood Count 2.3 K/mm3 (4.8-10.8)
--- OUTSIDE RECORDS SUMMARY | 2025-01-05 09:53 | XMS_ITS | Encounter Summary ---
Author Organization [facility] Address [address] [place] [address] Care Team Providers Care Institute Director Name Role Phone Enedina Mcguire NP Primary Care Provider + [phone] Maureen Pantoja RN Unavailable Unavail able Source [...] release of HIV test results or diagnoses. [id number] Health Encounter Details Date Type Department Care Team (Late st Contact Info) Description 11/27/2024 Chart Note [facility] Liver Transplant at [address] [place] [phone] Marlene Ro MA FK Pending 11/27 Labs [...] In the past 12 months has e [employer], gas, oil, or water [employer] threatened to shut off services in your [...] 5.0 g/dL Blood Narrative Resulting Agency Comment [facility] Result [facility] Provider LAB BLOOD ORDERABLES Denisse l Result * Protime-INR (11/27/2024 7:50 AM EDT) Pathologist [facility] INR 0.93 0.9 - 1.1 Plasma Narrative Resulting Agency Comment [facility] Result [facility] Provider LAB BLOOD ORDERABLES Denisse l Result * (ABNORMAL) CBC and differential (11/27/2024 7:50 AM EDT) [facility] Hemoglobin 10.2(A) 13.5 - 17.5 g/dL Hematocrit [...] 6.6 10^3/mL Blood Narrative Resulting Agency Comment [facility] Result [facility] Provider LAB BLOOD ORDERABLES Denisse l Result * Hepatic Function Panel (11/27/2024 7:50 AM EDT) Pathologist [facility] Bilirubin, Direct 0.4 Bilirubin, Indirect 0.1 Alkaline Phosphatase 149 U/L ALT 19 U/L AST 13 U/L Total Bilirubin 0.5 0.1 - 1.4 mg/dL Total Protein 6.4 6.4 - 8.2 g/dL Plasma Narrative Resulting Agency Comment [facility] us Historical Provider LAB BLOOD ORDERABLES Denisse l Result documented in this encounter Visit Diagnoses Not on filedocumented in this encounter Additional Health Concerns Infection Onset Date Last Indicated 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
--- OUTSIDE RECORDS SUMMARY | 2025-01-05 09:53 | XMS_ITS | Encounter Summary ---
Author Organization [facility] Address [address] [place] [address] Care Team Providers Care Parimutuel Ticket Checker Name Role Phone Enedina Mcguire NP Primary Care Provider + [phone] Maureen Pantoja RN Unavailable Unavail able Source [...] release of HIV test results or diagnoses. [id number] Health Encounter Details Date Type Department Care Team (Late st Contact Info) Description 12/01/2024 Telephone [facility] Liver Transplant at [address] [place] [phone] Gladis Chisholm MA Social History Tobacco [...] Recorded In the past 12 months has [employer], gas, oil, or water [employer] threatened to shut off services in your [...] have tried to fax his orders through [employer] but was unsuccessful. The plan is to send him a copy via but wanted confirmation that he had a way to print them out. * Gladis Chisholm MA - 12/01/2024 3:08 PM EDT Pt called to request that an order for a urinalysis be put in for him to get done at [facility]. Please advise. documented in this [...] documented as of this encounter Care Teams Parimutuel Ticket Checker Relationship Specialty Start Date End Date Enedina Mcguire NP [address] [place] [address] PCP - General Internal Medicine 10/05/24 Maureen Pantoja, RN Txp Post Coordinator Transplant Hepatology 10/28/24 documented as of this encounter
--- OUTSIDE RECORDS SUMMARY | 2025-01-05 09:53 | XMS_ITS | Encounter Summary ---
Author Organization [facility] Address [address] [place] [address] Care Team Providers Care Estimator Binding Name Role Phone Enedina Mcguire NP Primary Care Provider + [phone] Maureen Pantoja RN Unavailable Unavail able Source [...] release of HIV test results or diagnoses. [id number] Reason for Visit * Reason Comments Results Encounter Details Date Type Department Care Team (Riky st Contact Info) Description 11/27/[address] [facility] Liver Transplant at [address] [address] Maureen Pantoja, RN Results Social [...] In the past 12 months has e [employer], gas, oil, or water [employer] threatened to shut off services in your [...] as of this encounter Care Teams Estimator Binding Relationship Specialty Start Date End Date Enedina Mcguire NP [address] [place] [address] PCP - General Internal Medicine 10/05/24 Maureen Pantoja, ЮЛИЯ Txp Post Coordinator Transplant Hepatology 10/28/24 documented as of this encounter
--- OUTSIDE RECORDS SUMMARY | 2025-01-05 09:54 | XMS_ITS | Encounter Summary ---
Author Organization [facility] Address [address] [place] [address] Care Team Providers Care Slope Tender Name Role Phone Enedina Mcguire NP Primary Care Provider + [phone] Maureen Pantoja RN Unavailable Unavail able Source [...] release of HIV test results or diagnoses. [id number] Reason for Visit * Reason Comments Results Encounter Details Date Type Department Care Team (Late st Contact Info) Description 11/07/2024 Telephone [facility] Liver Transplant at [address] [address] Maureen Pantoja, RN Results Social [...] In the past 12 months has e [employer], gas, oil, or water [employer] threatened to shut off services in your [...] as of this encounter Care Teams Slope Tender Relationship Specialty Start Date End Date Enedina Mcguire NP [address] [place] [address] PCP - General Internal Medicine 10/05/24 Maureen Pantoja, RN Txp Post Coordinator Transplant Hepatology 10/28/24 documented as of this encounter
--- OUTSIDE RECORDS SUMMARY | 2025-01-05 09:54 | XMS_ITS | Encounter Summary ---
Author Organization [facility] Address [address] [place] [address] Care Team Providers Care Agricultural Sales Representative Name Role Phone Enedina Mcguire NP Primary Care Provider + [phone] Maureen Pantoja RN Unavailable Unavail able Source [...] release of HIV test results or diagnoses. [id number] Reason for Visit * Reason Comments Medication Refill Refill Request 1st A ttempt Encounter Details Date Type Department Care Team (Late st Contact Info) Description 10/21/2024 Refill [facility] Gastroenterology at [facility] Office [address] [place] [phone] Gerri Peterson MD [address] [place] [address] Social History Tobacco Use Types Packs/Day Years Used Date Smoking Tobacco: Former Cigarettes Smokeless Tobacco: Current Alcohol Use Standard Drinks/Week Comments Yes 0 (1 standard drink = 0.6 oz pure alcohol) History of alcohol abuse, reports no use in 3 week- typically endorses use as 4 glasses of wine a days Utilities Answer Date Recorded In the past 12 months has [employer], gas, oil, or water [employer] threatened to shut off services in your [...] as of this encounter Care Teams Agricultural Sales Representative Relationship Specialty Start Date End Date Enedina Mcguire NP [address] [place] [address] PCP - General Internal Medicine 10/05/24 Maureen Pantoja, ЮЛИЯ Txp Post Coordinator Transplant Hepatology 10/28/24 documented as of this encounter
--- OUTSIDE RECORDS SUMMARY | 2025-01-05 09:54 | XMS_ITS | Encounter Summary ---
Author Organization [facility] Address [address] [place] [address] Care Team Providers Care Maintenance Director Name Role Phone Enedina Mcguire NP Primary Care Provider + [phone] Maureen Pantoja RN Unavailable Unavail able Source [...] release of HIV test results or diagnoses. [id number] Health Encounter Details Date Type Department Care Team (Late st Contact Info) Description 11/10/2024 Orders Only [facility] Liver Transplant at [address] [place] [address] Maureen Pantoja, RN Social History Tobacco Use [...] Recorded In the past 12 months has [employer], gas, oil, or water [employer] threatened to shut off services in your [...] as of this encounter Care Teams Maintenance Director Relationship Specialty Start Date End Date Enedina Mcguire NP [address] [place] [address] PCP - General Internal Medicine 10/05/24 Maureen Pantoja, ЮЛИЯ Txp Post Coordinator Transplant Hepatology 10/28/24 documented as of this encounter
--- OUTSIDE RECORDS SUMMARY | 2025-01-05 09:54 | XMS_ITS | Encounter Summary ---
Author Organization [facility] Address [address] [place] [address] Care Team Providers Care Corporate Financial Analyst Name Role Phone Enedina Mcguire NP Primary Care Provider + [phone] Maureen Pantoja RN Unavailable Unavail able Source [...] release of HIV test results or diagnoses. [id number] Health Encounter Details Date Type Department Care Team (Late st Contact Info) Description 12/03/2024 Chart Note [facility] Liver Transplant at [address] [place] [phone] Marlene Ro MA Social History Tobacco Use [...] Recorded In the past 12 months has [employer], gas, oil, or water [employer] threatened to shut off services in your [...] 5.0 g/dL Blood Narrative Resulting Agency Comment [facility] Result [facility] Provider LAB BLOOD ORDERABLES Denisse l Result * Creatinine, urine, random (12/02/2024 8:01 AM EDT) Creatinine, Urine 48 Urine Narrative Resulting Agency Comment [facility] Result [facility] Provider URINE ORDERABLES Final Re sult * Urinalysis w/Rfl to Microscopic (12/02/2024 8:01 AM EDT) Glucose, UA Negative Negative Ketones, UA Negative Negative Blood, UA Negative Negative Bilirubin, UA Negative Negative Urobilinogen, UA Normal Normal Protein, UA Negative Negative Leukocyte Esterase, UA Negative Negative pH, UA 6.0 4.5 - 8.0 Specific [place], UA 1.010 1.005 - 1.030 Clarity, UA Clear Clear Color, UA Yellow Light Yellow, Yellow Urine Narrative Resulting Agency Comment [facility] Result [facility] Provider URINE ORDERABLES Final Re sult * [...] 6.0 10^3/mL Blood Narrative Resulting Agency Comment [facility] Provider LAB BLOOD ORDERABLES Denisse l Result * Urine Protein, Tot, Random (w/o Creat) (12/02/2024 8:01 AM EDT) Total Protein, Ur 10.0 Urine Narrative Resulting Agency Comment [facility] Result [facility] Provider URINE ORDERABLES Final Re sult * (ABNORMAL) Hepatic Function Panel (12/02/2024 8:01 AM EDT) Bilirubin, Direct 0.5 Bilirubin, Indirect 0.2 Alkaline Phosphatase 109 U/L ALT 16 U/L AST 15 U/L Total Bilirubin 0.7 0.1 - 1.4 mg/dL Total Protein 6.0(A) 6.4 - 8.2 g/dL Plasma Narrative Resulting Agency Comment [facility] Result [facility] Provider LAB BLOOD ORDERABLES Denisse l Result documented in this encounter Visit Diagnoses Not on filedocumented in this encounter Additional Health Concerns Infection Onset Date Last Indicated 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
--- OUTSIDE RECORDS SUMMARY | 2025-01-05 09:54 | XMS_ITS | Encounter Summary ---
Author Organization [facility] Address [address] [place] [address] Care Team Providers Care Color Straining Bag Washer Name Role Phone Endeina Mcguire NP Primary Care Provider + [phone] Maureen Pantoja RN Unavailable Unavail able Source [...] release of HIV test results or diagnoses. [id number] Reason for Visit * Reason Comments Medication Management Requesting RX for New Medication Encounter Details Date Type Department Care Team (Late st Contact Info) Description 10/21/2024 Telephone [facility] G[facility]enterology at [facility] [address] [place] [phone] Gerri Peterson MD [address] [place] [address] Medication Management (Requesting RX for [...] In the past 12 months has th [employer], oil, or [employer] threatened to shut off services in your [...] out of town and was advised by dry cleaning manager in office to contact gastro MD to obtain Rx. Pt states he is retaining 30 pounds of fluid and needs MD to send a prescription or return call dali. Pt can be reached at [phone] documented in this encounter Plan of [...] as of this encounter Care Teams Color Straining Bag Washer Relationship Specialty Start Date End Date Enedina Mcguire NP [address] [place] [address] PCP - General Internal Medicine 10/05/24 Maureen Pantoja, RN Txp Post Coordinator Transplant Hepatology 10/28/24 documented as of this encounter
--- OUTSIDE RECORDS SUMMARY | 2025-01-05 09:54 | XMS_ITS | Encounter Summary ---
Author Organization [facility] Address [address] [place] [address] Care Team Providers Care Golf Coach Name Role Phone Enedina Mcguire NP Primary Care Provider + [phone] Alicia Rankin RN Unavailable Unavail able Source [...] release of HIV test results or diagnoses. [id number] Health Encounter Details Date Type Department Care Team (Late st Contact Info) Description 12/02/2024 Telephone [facility] Liver Transplant at [address] [address] Mitzy Gill MA Social History [...] In the past 12 months has e [employer], gas, oil, or water company threatened to [...] advised he is almost out of FK. [facility] is working on getting an overnight shipment out to Pt but needs to confirm dosing on script. Sharda also brought the Pt on the line with us. I confirmed we have a prescription that was written on 11/25/24 but it was sent to [facility], not [facility]. Pt states he would like it re-routed to [facility] so they can get this out to him. I advised Pt and Sharda that I would have prescription updated and routed to [facility]. No further needs atthis time. documented [...] as of this encounter Care Teams Golf Coach Relationship Specialty Start Date End Date Enedina Mcguire NP [address] [place] [address] PCP - General Internal Medicine 10/05/24 Alicia Rankin, ЮЛИЯ Txp Post Coordinator Transplant Hepatology 10/28/24 documented as of this encounter
--- OUTSIDE RECORDS SUMMARY | 2025-01-05 09:54 | XMS_ITS | Encounter Summary ---
Author Organization [facility] Address [address] [place] [address] Care Team Providers Care Stretching Machine Operator Name Role Phone Enedina Mcguire NP Primary Care Provider + [phone] Maureen Pantoja RN Unavailable Unavail able Source [...] release of HIV test results or diagnoses. [id number] Health Encounter Details Date Type Department Care Team (Late st Contact Info) Description 11/10/2024 Orders Only [facility] Liver Transplant at [address] [place] [phone] Maureen Pantoja, ЮЛИЯ Liver transplant recipient ([facility]) (Primary Dx); Kidney transplant recipient; Immunosuppressive management encounter following liver transplant ([facility]) Social History Tobacco Use Types Packs/Day Years Used Date Smoking Tobacco: Former Cigarettes Smokeless Tobacco: Current Alcohol Use Standard Drinks/Week Comments Yes 0 (1 standard drink = 0.6 oz pure alcohol) History of alcohol abuse, reports no use in 3 week- typically endorses use as 4 glasses of wine a days Utilities Answer Date Recorded In the past 12 months has [employer], gas, oil, or water [employer] threatened to shut off services in your [...] documented as of this encounter Care Teams Stretching Machine Operator Relationship Specialty Start Date End Date Enedina Mcguire NP [address] [place] [address] PCP - General Internal Medicine 10/05/24 Maureen Pantoja RN Txp Post Coordinator Transplant Hepatology 10/28/24 documented as of this encounter
--- OUTSIDE RECORDS SUMMARY | 2025-01-05 09:55 | XMS_ITS | Encounter Summary ---
Author Organization [facility] Address [address] [place] [address] Care Team Providers Care Slitter Operator Name Role Phone Enedina Mcguire NP Primary Care Provider + [phone] Maureen Pantoja RN Unavailable Unavail able Source [...] release of HIV test results or diagnoses. [id number] Health Encounter Details Date Type Department Care Team (Late st Contact Info) Description 12/04/2024 Telephone [facility] Liver Transplant at [address] [phone] Marlene Ro MA Social History [...] Recorded In the past 12 months has [employer], gas, oil, or water [employer] threatened to shut off services in [...] I transferred the call andadvised pt to [facility] if no answer. He called again today [...] documented as of this encounter Care Teams Slitter Operator Relationship Specialty Start Date End Date Enedina Mcguire NP [address] [place] [address] PCP - General Internal Medicine 10/05/24 Maueren Pantoja, RN Txp Post Coordinator Transplant Hepatology 10/28/24 documented as of this encounter
--- OUTSIDE RECORDS SUMMARY | 2025-01-05 09:55 | XMS_ITS | Encounter Summary ---
Author Organization [facility] Address [address] [place] [address] Care Team Providers Care Atomic Process Engineer Name Role Phone Enedina cMguire NP Primary Care Provider + [phone] Maureen Pantoja RN Unavailable Unavail able Source [...] release of HIV test results or diagnoses. [id number] Reason for Visit * Reason Comments Results Encounter Details Date Type Department Care Team (Riky st Contact Info) Description 11/11/2024 Telephone [facility] Liver Transplant at [address] [address] Maureen Pantoja, RN Results Social [...] In the past 12 months has e [employer], gas, oil, or water [employer] threatened to shut off services in your [...] documented as of this encounter Care Teams Atomic Process Engineer Relationship Specialty Start Date End Date Enedina Mcguire NP [address] [place] [address] PCP - General Internal Medicine 10/05/24 Maureen Pantoja, RN Txp Post Coordinator Transplant Hepatology 10/28/24 documented as of this encounter
--- OUTSIDE RECORDS SUMMARY | 2025-01-05 09:55 | XMS_ITS | Encounter Summary ---
Author Organization [facility] Address [facility] [place] [address] Care Team Providers Care Signalman Name Role Phone Enedina Mcguire NP Primary Care Provider + [phone] Maureen Pantoja RN Unavailable Unavail able Source [...] release of HIV test results or diagnoses. [id number] Reason for Visit * Reason Comments After Hours Call Passing blood throug h stool states started this morning has had 3 bloody bowel movements kidney and liver txp done 2 weeks ago Encounter Details Date Type Department Care Team (Late st Contact Info) Description 11/09/2024 Telephone [facility] PATIENT SERVICES [address] [place] [address] Unknown, Attending Provider After Hours [...] Recorded In the past 12 months has for; to (do), gas, oil, or water [employer] ([employer]) threatened to shut off services in your [...] Caller to Patient and Callback: dionna anderson [phone] Patient of: liver txp txp team Nature of Call: Passing blood through stool states started this morning has had 3 bloody bowel movements kidney and liver txp done 2 weeks ago Weather Strip Installer Provider Contacted: del turner Time and Method of Contact: via cell phone 1133 am connected coordinator to idonna at 1135 am Advise Caller: If provider [...] Start Date End Date Enedina cMguire NP [address] [place] [address] PCP - General Internal Medicine 10/05/24 Maureen Pantoja, RN Txp Post Coordinator Transplant Hepatology 10/28/24 documented as of this encounter
--- OUTSIDE RECORDS SUMMARY | 2025-01-05 09:55 | XMS_ITS | Encounter Summary ---
Author Organization [facility] Address [address] [place] [address] Care Team Providers Care Medical Registrar Name Role Phone Enedina Mcguire NP Primary Care Provider + [phone] Maureen Pantoja RN Unavailable Unavail able Source [...] release of HIV test results or diagnoses. [id number] Health Encounter Details Date Type Department Care Team (Late st Contact Info) Description 11/24/2024 Orders Only [facility] Liver Transplant at [address] [place] [address] Maureen Pantoja, RN Social History Tobacco Use [...] Recorded In the past 12 months has [employer], gas, oil, or water [employer] threatened to shut off services in your [...] as of this encounter Care Teams Medical Registrar Relationship Specialty Start Date End Date Enedina Mcguire NP [address] [place] [address] PCP - General Internal Medicine 10/05/24 Maureen Pantoja, ЮЛИЯ Txp Post Coordinator Transplant Hepatology 10/28/24 documented as of this encounter
--- OUTSIDE RECORDS SUMMARY | 2025-01-05 09:55 | XMS_ITS | Encounter Summary ---
Author Organization [facility] Address [address] [place] [address] Care Team Providers Care Equipment Operating Engineer Name Role Phone Enedina Mcguire NP Primary Care Provider + [phone] Maureen Pantoja RN Unavailable Unavail able Source [...] release of HIV test results or diagnoses. [id number] Health Encounter Details Date Type Department Care Team (Late st Contact Info) Description 11/07/2024 Telephone [facility] Liver Transplant at [address] [address] Marlene Ro MA Social [...] Recorded In the past 12 months has [employer], gas, oil, or water [employer] threatened to shut off services in your [...] documented as of this encounter Care Teams Equipment Operating Engineer Relationship Specialty Start Date End Date Enedina Mcguire NP [address] [place] [address] PCP - General Internal Medicine 10/05/24 Maureen Pantoja, ЮЛИЯ Txp Post Coordinator Transplant Hepatology 10/28/24 documented as of this encounter
--- OUTSIDE RECORDS SUMMARY | 2025-01-05 09:55 | XMS_ITS | Encounter Summary ---
Author Organization [facility] Address [address] [place] [address] Care Team Providers Care Senior Sales Manager Name Role Phone Enedina Mcguire NP Primary Care Provider + [phone] Maureen Pantoja RN Unavailable Unavail able Source [...] release of HIV test results or diagnoses. [id number] Reason for Visit * Reason Comments Medication Refill Refill Request 1st A ttempt Encounter Details Date Type Department Care Team (Late st Contact Info) Description 10/20/2024 Refill [facility] [address] [place] [address] Gerri Peterson MD [address] [place] [address] Social History Tobacco Use Types Packs/Day Years Used Date Smoking Tobacco: Former Cigarettes Smokeless Tobacco: Current Alcohol Use Standard Drinks/Week Comments Yes 0 (1 standard drink = 0.6 oz pure alcohol) History of alcohol abuse, reports no use in 3 week- typically endorses use as 4 glasses of wine a days Utilities Answer Date Recorded In the past 12 months has [employer], gas, oil, or water [employer] threatened to shut off services in your [...] need filled today. PHARMACY & PHONE #: [facility] [address] [place], [place] [address] [address] DATE OF LAST APPT: 09/02/2024 Gerri Peterson [...] as of this encounter Care Teams Senior Sales Manager Relationship Specialty Start Date End Date Enedina Mcguire NP [address] [place] [address] PCP - General Internal Medicine 10/05/24 Maureen Pantoja, RN Txp Post Coordinator Transplant Hepatology 10/28/24 documented as of this encounter
--- OUTSIDE RECORDS SUMMARY | 2025-01-05 09:55 | XMS_ITS | Encounter Summary ---
Author Organization [facility] Address [address] [place] [address] Care Team Providers Care Director Dance Name Role Phone Enedina Mcguire NP Primary Care Provider + [phone] Maureen Pantoja RN Unavailable Unavail able Source [...] release of HIV test results or diagnoses. [id number] Health Encounter Details Date Type Department Care Team (Late st Contact Info) Description 11/25/2024 Social Work [facility] Liver Transplant at [address] [place] [phone] Kaylin Willard MSW Social History Tobacco Use [...] Recorded In the past 12 months has [employer], gas, oil, or water [employer] threatened to shut off services in your [...] AM 09/29/2024 11:00 AM 11/25/2024 3:00 PM [id number] Score MAGALYS-7 Total Score 17 13 4 Scores are not concerning for depression/anxiety. No further SW needs identified. 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
--- OUTSIDE RECORDS SUMMARY | 2025-01-05 09:55 | XMS_ITS | Encounter Summary ---
Author Organization [facility] Address [address] [place] [address] Care Team Providers Care Real Property Appraiser Name Role Phone Enedina Mcguire NP Primary Care Provider + [phone] Maureen Pantoja RN Unavailable Unavail able Source [...] release of HIV test results or diagnoses. [id number] Health Encounter Details Date Type Department Care Team (Late st Contact Info) Description 12/04/2024 Chart Note [facility] Liver Transplant at [address] [place] [phone] Marlene Ro MA FK Pending-12/04 Social History [...] In the past 12 months has e [employer], gas, oil, or water [employer] threatened to shut off services in your [...] Tacrolimus level (12/04/2024 7:47 AM EDT) Pathologist [facility] Tacrolimus Lvl 7.5 6 - 15 ng/mL Whole Blood Narrative Resulting Agency Comment [facility] Historical Provider LAB BLOOD ORDERABLES Denisse l Result * (ABNORMAL) Magnesium (12/04/2024 7:47 AM EDT) Pathologist [facility] Magnesium 1.2(A) 1.6 - 2.4 mg/dL Plasma Narrative Resulting Agency Comment [facility] us Historical Provider LAB BLOOD [...] Narrative Resulting Agency Comment [facility] Result Count includes the [facility] MD LAB BLOOD ORDERABLES Denisse l Result * Protime-INR (12/04/2024 7:47 AM EDT) [facility] INR 0.99 0.9 - 1.1 Plasma Narrative Resulting Agency Comment [facility] Result [facility] LAB BLOOD ORDERABLES Denisse l Result * (ABNORMAL) CBC and differential (12/04/2024 7:47 AM EDT) [facility] Hemoglobin 10.7(A) 13.5 - 17.5 g/dL Hematocrit [...] 6.5 10^3/mL Blood Narrative Resulting Agency Comment [facility] Result [facility] LAB BLOOD ORDERABLES Denisse l Result * (ABNORMAL) Hepatic Function Panel (12/04/2024 7:47 AM EDT) [facility] Bilirubin, Direct 0.5 Bilirubin, Indirect 0.2 Alkaline Phosphatase 102 U/L ALT 14 U/L AST 15 U/L Total Bilirubin 0.7 0.1 - 1.4 mg/dL Total Protein 5.8(A) 6.4 - 8.2 g/dL Plasma Narrative Resulting Agency Comment [facility] us Historical Provider LAB BLOOD ORDERABLES Denisse l Result documented in this encounter Visit Diagnoses Not on filedocumented in this encounter Additional Health Concerns Infection Onset Date Last Indicated 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
--- OUTSIDE RECORDS SUMMARY | 2025-01-05 09:55 | XMS_ITS | Encounter Summary ---
Author Organization [facility] Address [address] [place] [address] Care Team Providers Care Payroll Bookkeeper Name Role Phone Enedina Mcguire NP Primary Care Provider + [phone] Maureen Pantoja RN Unavailable Unavail able Source [...] release of HIV test results or diagnoses. [id number] Health Encounter Details Date Type Department Care Team (Late st Contact Info) Description 12/04/2024 Telephone [facility] Liver Transplant at [address] [place] [phone] Kaylin Willard MSW Social History Tobacco [...] Recorded In the past 12 months has [facility], gas, oil, or water [employer] threatened to shut off services in [...] prior to transplant and completed treatment with [facility]. SW called and spoke to [...] meets with a counselor weekly and an PROPERTY MAINTENANCE TECHNICIAN. He has spoke with his PROPERTY MAINTENANCE TECHNICIAN and is interested in Naltrexone to help reduce cravings. He will require a letter from our teamto confirm he is able to take Naltrexone, SW to coordinate with RN coordinator. SW reviewed concerns for alcohol use post-transplant and patient was aware and agreeable. Patient to meet with MEREDITH and transplant CD counselor at next clinic appointment for additional support/follow-up. 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
--- OUTSIDE RECORDS SUMMARY | 2025-01-05 09:56 | XMS_ITS | Encounter Summary ---
Author Organization [facility] Address [address] [place] [address] Care Team Providers Care Gravity Prospector Name Role Phone Jony Conde MD Primary Care Provider [phone] Lj Tapia SINTER MACHINE OPERATOR Unavailable [phone] Enedina Mcguire SINTER MACHINE OPERATOR Primary Care Provider + Nuria Fall WORKFORCE MANAGEMENT CONSULTANT Unavailable Unavaila ble Encounter Details Date Type Department Care Team (Late st Contact Info) Description 07/04/2022 Orders Only External Location [address] [place] [address] Presley Montes De Oca MD [address] [facility] [address] [place], [place] [id number] Social History Tobacco Use Types Packs/Day Years [...] PM EDT [facility] [address], [address] [place] [address] Vincent Braga MD [address] [facility] [address] [place] [phone] documented as of this encounter Procedures Procedure [...] on filedocumented in this encounter Care Teams Gravity Prospector Relationship Specialty Start Date End Date Jony Conde MD [address] [place] [address] [address] [place] [address] PCP - General 07/18/22 12/03/22 Enedina Mcguire APRN [address] [place] [address] PCP - General 12/04/22 Lj Tapia APRN [address] [place] [address] Referring Physician Gastroenterology 07/18/22 Nuria Fall LPN [facility] TCM Nurse 07/24/24 08/23/24 documented as of this encounter
--- OUTSIDE RECORDS SUMMARY | 2025-01-05 09:56 | XMS_ITS | Encounter Summary ---
Author Organization [facility] Address [address] [place] [address] Care Team Providers Care College Or University Faculty Member Name Role Phone Enedina Mcguire NP Primary Care Provider + [phone] Alicia Rankin RN Unavailable Unavail able Source [...] release of HIV test results or diagnoses. [id number] Reason for Visit * Reason Comments Results Encounter Details Date Type Department Care Team (Riky st Contact Info) Description 11/26/2024 Telephone [facility] Liver Transplant at [address] [address] Alicai Rankin, RN Results Social History Tobacco Use [...] In the past 12 months has e [employer], gas, oil, or water [employer] threatened to shut off services in your [...] documented as of this encounter Care Teams College Or University Faculty Member Relationship Specialty Start Date End Date Enedina Mcguire NP [address] [place] [address] PCP - General Internal Medicine 10/05/24 Alicia Rankin, RN Txp Post Coordinator Transplant Hepatology 10/28/24 documented as of this encounter
--- OUTSIDE RECORDS SUMMARY | 2025-01-05 09:56 | XMS_ITS | Encounter Summary ---
Author Organization [facility] Address [address] [place] [address] Care Team Providers Care Car Loader Name Role Phone Enedina Mcugire APRN Primary Care Provider + Encounter Details Date Type Department Care Team ([facility] st Contact Info) Description 10/07/2024 Results Follow-Up [facility] INTERNAL MEDICINE [address] [place] [address] Enedina Mcguire APRN [address] [place], [place] [phone] Social History Tobacco Use Types Packs/Day Years Used Date Smoking Tobacco: Former Cigarettes 4 20 Passive Smoke Exposure: Past Smokeless Tobacco: Current Comments:MARIJUANA USE ABOUT 2X PER WEEK - reports no use 08-05-2024 Alcohol Use Standard Drinks/Week Comments Not Currently 0 (1 standard drink = 0.6 oz pure alcohol) 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 [facility] Utilities Answer Date Recorded In the past 12 months has [employer], [employer], oil, or water [employer] threatened to shut off services in your [...] Brief Depression Severity Measure Score 0 10/02/2022 [facility] Occup[facility] ional [facility] - [...] Description 04/02/2025 2:15 PM EST Office Visit [facility] PAIN MANAGEMENT [address] [address] Vazquez Christie PA-C [address] [place] [address] documented as of this encounter Visit Diagnoses Not on filedocumented in this encounter Additional Health Concerns Assessment Noted Time PHQ-2 Depression Total Score: 1 12/31/19 24 3:25 PM EDT documented as of this encounter Care Teams Car Loader Relationship Specialty Start Date End Date Enedina Mcguire APRN [address] [place] [address] PCP - General Nurse Practitioner 10/27/24 documented as of this encounter
--- OUTSIDE RECORDS SUMMARY | 2025-01-05 09:56 | XMS_ITS | Encounter Summary ---
Author Organization [facility] Address [address] [place] [address] Care Team Providers Care Maintainer Central Office Name Role Phone Enedina Mcguire NP Primary Care Provider + [phone] Maureen Pantoja RN Unavailable Unavail able Source [...] release of HIV test results or diagnoses. [id number] Reason for Visit * Reason Comments Results Encounter Details Date Type Department Care Team (Riky st Contact Info) Description 11/21/2024 Telephone [facility] Liver Transplant at [address] [address] Maureen Pantoja, RN Results Social [...] In the past 12 months has e [employer], gas, oil, or water [employer] threatened to shut off services in [...] documented as of this encounter Care Teams Maintainer Central Office Relationship Specialty Start Date End Date Enedina Mcguire NP [address] [place] [address] PCP - General Internal Medicine 10/05/24 Maureen Pantoja, RN Txp Post Coordinator Transplant Hepatology 10/28/24 documented as of this encounter
--- OUTSIDE RECORDS SUMMARY | 2025-01-05 09:56 | XMS_ITS | Encounter Summary ---
Author Organization [facility] Address [address] [place] [address] Care Team Providers Care Pulp Grinder And Blender Name Role Phone Jony Conde MD Primary Care Provider [phone] Lj Tapia TERMINAL CLERK Unavailable +[phone] Enedina Mcguire TERMINAL CLERK Primary Care Provider + Nuria Fall SEED POTATO ARRANGER Unavailable Unavaila ble Encounter Details Date Type Department Care Team (Late st Contact Info) Description 07/02/2022 Orders Only External Location [address] [place] [phone] Provider, External Social History Tobacco Use Types [...] PM EDT Office Visit [facility] [place] [address] [address] [facility], [address] [place] [address] Vincent Braga MD [address] [facility] [address] [place] [phone] documented as of this encounter Procedures Procedure [...] on filedocumented in this encounter Care Teams Pulp Grinder And Blender Relationship Specialty Start Date End Date Jony Conde MD [address] [place] [address] [address] [place] [address] PCP - General 07/18/22 12/03/22 Enedina Mcguire APRN [address] [place] [address] PCP - General 12/04/22 Lj Tapia APRN [facility] [place] [address] Referring Physician Gastroenterology 07/18/22 Nuria Fall LPN [facility] TCM Nurse 07/24/24 08/23/24 documented as of this encounter
--- OUTSIDE RECORDS SUMMARY | 2025-01-05 09:56 | XMS_ITS | Encounter Summary ---
Author Organization [facility] Address [address] [place] [address] Care Team Providers Care Signal Tower Director Name Role Phone Enedina Mcguire NP Primary Care Provider + [phone] Maureen Pantoja RN Unavailable Unavail able Source [...] release of HIV test results or diagnoses. [id number] Health Encounter Details Date Type Department Care Team (Late st Contact Info) Description 11/21/2024 Chart Note [facility] Liver Transplant at [address] [place] [phone] Marlene Ro MA FK: 11/18 & 11/20 [...] Recorded In the past 12 months has [employer], gas, oil, or water [employer] threatened to shut off services in your [...] level (11/20/2024 8:00 AM EDT) Pathologist [facility] Tacrolimus Lvl 11.5 6 - 15 ng/mL [...] Resulting Agency Comment [facility] Historical Provider LAB BLOOD ORDERABLES [...] 6.4 10^3/mL Blood Narrative Resulting Agency Comment [facility] Historical Provider LAB BLOOD ORDERABLES Denisse l Result * Hepatic Function Panel (11/20/2024 8:00 AM EDT) Bilirubin, Direct 0.4 Bilirubin, Indirect 0.1 Alkaline Phosphatase 285 U/L ALT 60 U/L AST 25 U/L Total Bilirubin 0.5 0.1 - 1.4 mg/dL Total Protein 6.4 6.4 - 8.2 g/dL Plasma Narrative Resulting Agency Comment [facility] Result [facility] MD LAB BLOOD ORDERABLES Denisse l Result * Tacrolimus level (11/18/2024 7:45 AM EDT) Pathologist [facility] Tacrolimus Lvl 12.5 6 - 15 ng/mL Whole Blood Result [facility] MD LAB BLOOD ORDERABLES Denisse l Result * (ABNORMAL) Hepatic Function Panel (11/18/2024 7:45 AM EDT) [facility] Bilirubin, Direct 0.5 Bilirubin, Indirect 0.1 Alkaline Phosphatase 189 U/L ALT 41 U/L AST 23 U/L Total Bilirubin 0.6 0.1 - 1.4 mg/dL Total Protein 6.1(A) 6.4 - 8.2 g/dL Plasma Narrative Resulting Agency Comment [facility] Result [facility] LAB BLOOD ORDERABLES Denisse l Result * (ABNORMAL) Renal Function Panel w/o EGFR (11/18/2024 7:45 AM EDT) [facility] Glucose 100 mg/dL BUN 43(A) 4 - [...] Agency Comment [facility] Result [facility] MD LAB BLOOD ORDERABLES Denisse l Result * (ABNORMAL) CBC and differential (11/18/2024 7:45 AM EDT) [facility] Hemoglobin 10.2(A) 13.5 - 17.5 g/dL Hematocrit [...] 6.0 10^3/mL Blood Narrative Resulting Agency Comment [facility] [...] documented as of this encounter Care Teams Signal Tower Director Relationship Specialty Start Date End Date Enedina Mcguire NP [address] [place] [address] PCP - General Internal Medicine 10/05/24 Maureen Pantoja, RN Txp Post Coordinator Transplant Hepatology 10/28/24 documented as of this encounter
--- OUTSIDE RECORDS SUMMARY | 2025-01-05 09:56 | XMS_ITS | Encounter Summary ---
Author Organization [facility] Address [address] [place] [address] Care Team Providers Care Teletypesetter Name Role Phone Enedina Mcguire NP Primary Care Provider + [phone] Maureen Pantoja RN Unavailable Unavail able Source [...] release of HIV test results or diagnoses. [id number] Health Encounter Details Date Type Department Care Team (Late st Contact Info) Description 11/20/2024 Orders Only [facility] Liver Transplant at [address] [place] [address] Maureen Pantoja, ЮЛИЯ S/P liver transplant (CMS-HCC) (Primary Dx); Immunosuppression ([facility]-H[facility]); Viral disease exposure; Alcohol use Social History [...] Recorded In the past 12 months has [employer], gas, oil, or water [employer] threatened to shut off services in your [...] Cutoff: 10 ng/mL 11/28/2024 8:24 AM EDT [facility] Comment: Phosphatidylethanol (PEth) homologues result interpretation [...] Cutoff: 10 ng/mL 11/28/2024 8:24 AM EDT [facility] Comment: PEth 16:0/18:2 (PLPEth) Reference ranges are not well established PEth Interpretation Positive. 11/28 8:24 AM T [facility] Comment: ADDITIONAL INFORMATION This report is intended for use in clinical monitoring and management of patients. It is not intended for use in employment-related testing. This test was developed and its performance characteristics determined by [facility] in a manner consistent with CLIA requirements. This test has not been cleared or approved by the U.S. Food and Drug Administration. Test Performed by: [facility] - [address] [address] [place]: Kathy Ortiz Ph.D.; CLIA# [id number] Whole Blood 11/25/2024 8:42 AM EDT 11/28/2024 8:24 AM EDT [facility] - 11/28/2024 8:24 AM EDT One time lab order to be collected with next set of standing liver transplant labs. Please fax all results to [phone]. Call critical results to [phone]. Harvey Domínguez III, MD LAB BLOOD ORDERABLE S Final Result Performing Organization Address City/[facility]/ZIP Co de Phone Number [facility] [address] [facility]. [address] * HIV-1 RNA, Quantitative, PCR (11/25/2024 8:42 AM EDT) Pathologist [facility] HIV 1 Copies Not Detected copies/mL 11/26/2024 10:57 AM EDT [facility] Comment:Test methodology for HIV-1 RNA quantification is an FDA-approved nucleic acid amplification assay. The Lower Limit of Quantitation (LLoQ) is 20 copies/mL. The linear range is 20- to 10,000,000 copies/mL. The Limit of Detection (LoD) is 13.2 copies/mL. The reference range is Not Detected. HIV [id number] See Note [id number] /mL 11/26/2024 10:57 AM EDT [facility] Comment:HIV-1 RNA not detect ed. Plasma 11/25/2024 8:42 AM EDT 11/25/2024 10:59 AM EDT [facility] - 11/26/2024 10:57 AM EDT One time lab order to be collected with next set of standing liver transplant labs. UNOS requirement. Please fax all results to [phone]. Call critical results to [phone]. Harvey Domínguez III, MD LAB BLOOD ORDERABLE S Final Result Performing Organization Address City/[facility]/ZIP Co de Phone Number [facility] [address] [place]. [address] * Hepatitis C RNA, Quantitative PCR (11/25/2024 8:42 AM EDT) Pathologist [facility] Units Not Detected IU/mL 11/27/2024 11:35 AM EDT [facility] Comment:Test methodology for HCV RNA quantification is an FDA-approved nucleic acid amplification assay. The Lower Limit of Quantitation (LLOQ) is 15 IU/mL. The linear range of the assay is 15-100,000,000 IU/mL. The Limit of Detection (LoD) is 12.0 IU/mL for EDTA plasma. The reference range is Not Detected. IU log10 See Note log 10 IU/mL 11/27/2024 11:35 AM EDT [facility] Comment:HCV RNA not detected . Plasma 11/25/2024 8:42 AM EDT 11/25/2024 10:59 AM EDT [facility] - 11/27/2024 11:35 AM EDT One time lab order to be collected with next set of standing liver transplant labs. UNOS requirement. Please fax all results to [phone]. Call critical results to [phone]. Harvey Domínguez III, MD LAB BLOOD ORDERABLE S Final Result [facility] [address] [place] [address], [facility] * Hepatitis B Virus (HBV), PCR, Quant (11/25/2024 8:42 AM EDT) Hep B Viral DNA IU/ML Not Detected IU/mL 11/28/2024 10:09 AM EDT [facility] Comment:Test methodology for HBV DNA quantification is an FDA-approved nucleic acid amplification assay. The lower limit of quantitation (LLOQ) is 10 IU/mL. The linear range of the assay is 10-1,000,000,000 IU/mL. The limit of detection (LoD) for plasma is 2.7 IU/mL. The reference range is Not Detected. log 10 HBV as IU/mL See Note log 10 IU/mL 11/28/2024 10:09 AM EDT [facility] Comment:HBV DNA not detected . Plasma 11/25/2024 8:42 AM EDT 11/25/2024 10:59 AM EDT Narrative [facility] - 11/28/2024 10:09 AM EDT One time lab order to be collected with next set of standing liver transplant labs. UNOS requirement. Please fax all results to [phone]. Call critical results to [phone]. us Harvey Domínguez III, MD LAB BLOOD ORDERABLE S Final Result [facility] [address] [place], [place] [address] documented in this encounter Visit Diagnoses [...] documented as of this encounter Care Teams Teletypesetter Relationship Specialty Start Date End Date Enedina Mcguire NP [address] [place] [address] PCP - General Internal Medicine 10/05/24 Maureen Pantoja, RN Txp Post Coordinator Transplant Hepatology 10/28/24 documented as of this encounter
--- OUTSIDE RECORDS SUMMARY | 2025-01-05 09:56 | XMS_ITS | Encounter Summary ---
[facility] Address [address] [place] [address] Care Team Providers Care Radiopharmacist Name Role Phone Enedina Mcguire APRN Primary Care Provider + Encounter Details Date Type Department Care Team ([facility] st Contact Info) Description 10/07/2024 Results Follow-Up [facility] INTERNAL MEDICINE [address] [place] [address] Enedina Mcguire APRN [address] [place], [place] [id number] Social History Tobacco Use Types Packs/Day Years [...] the past 12 months has [employer], [employer], oil, or water [employer] threatened to shut off services in your [...] Brief Depression Severity Measure Score 0 10/02/2022 [facility] - Occupational [...] GED or equivalent No 07/09/2024 Preferred Language German 07/09/2024 PHQ-2 Answer Date Recorded Patient Health [...] Description 04/02/2025 2:15 PM EST Office Visit [facility]IN [facility] [address] [address] Vazquez Christie PA-C [address] [place] [address] documented as of this encounter Visit Diagnoses Not on filedocumented in this encounter Additional Health Concerns Assessment Noted Time PHQ-2 Depression Total Score: 1 12/31/19 24 3:25 PM EDT documented as of this encounter Care Teams Radiopharmacist Relationship Specialty Start Date End Date Enedina Mcguire APRN [address] [place] [address] PCP - General Nurse Practitioner 10/27/24 documented as of this encounter
--- OUTSIDE RECORDS SUMMARY | 2025-01-05 09:56 | XMS_ITS | Encounter Summary ---
[facility] [address] [place] [address] Care Team Providers Care Planner Chief Name Role Phone Enedina Mcguire APRN Primary Care Provider + Reason for Visit * Reason Comments Med Refill Encounter Details Date Type Department Care Team (Late st Contact Info) Description 09/12/2022 Refill [facility] GASTROENTEROLOGY [address] [facility] [address] [place] [address] Lj Tapia APRN [address] [place] [address] Social History Tobacco Use Types Packs/Day Years [...] or training? Not on file Preferred Language Swedish 07/03/2022 Sex and Gender Information Value Date Recorded Sex Assigned at Male 08/20/2024 8:28 PM EDT Legal Sex Male 7:45 AM EDT Gender Identity Not on file Sexual Orientation Not on file documented as of this encounter Plan of Treatment Upcoming Encounters Date Type Department Care Team (Late st Contact Info) Description 04/02/2025 2:15 PM EST Office Visit [facility] [address] [address] Vazquez Christie PA-C [address] [place] [address] documented as of this encounter Visit Diagnoses Not on filedocumented in this encounter Care Teams Planner Chief Relationship Specialty Start Date End Date Enedina Mcguire APRN [address] [place] [address] PCP - General Nurse Practitioner 10/27/24 documented as of this encounter
--- OUTSIDE RECORDS SUMMARY | 2025-01-05 09:56 | XMS_ITS | Encounter Summary ---
Author Organization [facility] Address [address] [place] [address] Care Team Providers Care Core Drilling Supervisor Name Role Phone Jony Conde MD Primary Care Provider [phone] Lj Tapia CLIENT TECHNOLOGIES SPECIALIST Unavailable [phone] Enedina Mcguire CLIENT TECHNOLOGIES SPECIALIST Primary Care Provider + Nuria Fall PEDIATRIC ANESTHESIOLOGIST Unavailable Unavaila ble Encounter Details Date Type Department Care Team (Late st Contact Info) Description 07/04/2022 Orders Only External Location [address] [place] [address] Presley Montes De Oca MD [address]20 [facility] [address] [place], [place] [id number] Social History Tobacco Use Types Packs/Day Years [...] EDT [facility] [address], [address] [place] [address] Vincent Braga MD [address] [facility] [address] [place] [address] documented as of this encounter Procedures Procedure [...] on filedocumented in this encounter Care Teams Core Drilling Supervisor Relationship Specialty Start Date End Date Jony Conde MD [address] [facility] [address] [place] [address] PCP - General 07/18/22 12/03/22 Enedina Mcguire APRN [address] [place] [address] PCP - General 12/04/22 Lj Tapia APRN [address] [place] [address] Referring Physician Gastroenterology 07/18/22 Nuria Fall LPN [facility] TCM Nurse 07/24/24 08/23/24 documented as of this encounter
--- OUTSIDE RECORDS SUMMARY | 2025-01-05 09:56 | XMS_ITS | Encounter Summary ---
Author Organization [facility] Address [address] [place] [address] Care Team Providers Care Plumbing Assembler Name Role Phone Jony Conde MD Primary Care Provider [phone] Lj Tapia PRIMARY CARE PEDIATRICIAN Unavailable [phone] Enedina Mcguire PRIMARY CARE PEDIATRICIAN Primary Care Provider + Nuria Fall RESIDENTIAL THERAPIST Unavailable Unavaila ble Encounter Details Date Type Department Care Team (Late st Contact Info) Description 07/03/2022 Orders Only External Location [address] [place] [address] Presley Montes De Oca MD [address] [facility] [address] [place], [place] [id number] Social History Tobacco Use Types Packs/Day Years [...] PM EDT [facility] [address], [address] [place] [address] Vincent Braga MD [address] [facility] [address] [place] [phone] documented as of this encounter Procedures Procedure [...] on filedocumented in this encounter Care Teams Plumbing Assembler Relationship Specialty Start Date End Date Jony Conde MD [address] [place] [address] [address] [place] [address] PCP - General 07/18/22 12/03/22 Enedina Mcguire APRN [address] [place] [address] PCP - General 12/04/22 Lj Tapia APRN [address] [place] [address] Referring Physician Gastroenterology 07/18/22 Nuria Fall LPN [facility] TCM Nurse 07/24/24 08/23/24 documented as of this encounter
--- OUTSIDE RECORDS SUMMARY | 2025-01-05 09:56 | XMS_ITS | Encounter Summary ---
Author Organization [facility] Address [address] [place] [address] Care Team Providers Care Store Clerk Cashier Name Role Phone [place], Lj Nova APRN Unavailable [phone] Enedina Mcguire APRN Primary Care Provider + Encounter Details Date Type Department Care Team ([facility] st Contact Info) Description 11/27/2024 Telephone [facility] Nephrology, Bone & Mineral Metabolism [address] [facility], [address] [place] [address] Chelsy Villanueva Social History Tobacco [...] often do you attend chur ch or gnosticism services? Patient unable to answer 07/14/2024 Do [...] Recorded Patient Health Questionnaire-2 Score 2 09/29/2024 [facility] - Occupational Stress Questionnaire Answer Date [...] drink first t deborah in the morning (EYE-NETWORK SYSTEMS OPERATOR) to steady your nerves or to [...] Miscellaneous Notes * Telephone Encounter - Chelsy Vlilanueva - 11/27/2024 10:[address] Hairston pt is now s/p transplant can follow with transplant reducing machine operator, please cancel appt. documented in this encounter Plan of Treatment Upcoming Encounters Date Type Department Care Team (Late st Contact Info) Description 01/08/2025 3:20 PM EDT [facility] [place] [address] [facility], [address] [place] [address] Vincent Braga MD [address] [place] [address] [place] [address] documented as of this encounter Visit Diagnoses [...] as of this encounter Care Teams Store Clerk Cashier Relationship Specialty Start Date End Date Enedina Mcguire APRN [address] [place] [address] PCP - General 12/04/22 Lj Tapia APRN [address] [place] [address] Referring Physician Gastroenterology 07/18/22 documented as of this encounter
--- OUTSIDE RECORDS SUMMARY | 2025-01-05 09:56 | XMS_ITS | Encounter Summary ---
[facility] [address] [place] [address] Care Team Providers Care Aquaculture Worker Name Role Phone Enedina Mcguire APRN Primary Care Provider + Reason for Visit * Reason Comments Med Refill Encounter Details Date Type Department Care Team (Late st Contact Info) Description 07/20/2022 Refill [facility] GASTROENTEROLOGY 17[address] [facility] [address] [place] [address] Lj Tapia APRN [address] [place] [address] Secondary esophageal varices without bleeding Social History [...] or training? Not on file Preferred Language Kiswahili 07/03/2022 Sex and Gender Information Value Date Recorded Sex Assigned at Male 08/20/2024 8:28 PM EDT Legal Sex Male 7:45 AM EDT Gender Identity Not on file Sexual Orientation Not on file documented as of this encounter Plan of Treatment Upcoming Encounters Date Type Department Care Team (Late st Contact Info) Description 04/02/2025 2:15 PM EST Office Visit [facility] PAIN [facility] [address] [address] Vazquez Christie PA-C [address] [place] [address] documented as of this encounter Visit Diagnoses Diagnosis Secondary esophageal varices without bleeding documented in this encounter Additional Health Concerns Infection Onset Date Last Indicated Resolved Time COVID Screen (preop/placement) 07/28/2022 07/28/2022 07/29/2022 12:00 AM EDT documented as of this encounter Care Teams Aquaculture Worker Relationship Specialty Start Date End Date Enedina Mcguire APRN [address] [place] [address] PCP - General Nurse Practitioner 10/27/24 documented as of this encounter
--- OUTSIDE RECORDS SUMMARY | 2025-01-05 09:56 | XMS_ITS | Encounter Summary ---
Author Organization [facility] Address [address] [place] [address] Care Team Providers Care Supervisor Char House Name Role Phone Enedina Mcguire NP Primary Care Provider + [phone] Maureen Pantoja RN Unavailable Unavail able Source [...] release of HIV test results or diagnoses. [id number] Health Encounter Details Date Type Department Care Team (Late st Contact Info) Description 11/20/2024 Refill [facility] Liver Transplant at [address] [place] [address] Maureen Pantoja, RN Social History Tobacco Use [...] Recorded In the past 12 months has [employer], gas, oil, or water [email or web address] threatened to shut off services in your [...] as of this encounter Care Teams Supervisor Char House Relationship Specialty Start Date End Date Enedina Mcguire NP [address] [place] [address] PCP - General Internal Medicine 10/05/24 Maureen Pantoja, ЮЛИЯ Txp Post Coordinator Transplant Hepatology 10/28/24 documented as of this encounter
--- OUTSIDE RECORDS SUMMARY | 2025-01-05 09:56 | XMS_ITS | Encounter Summary ---
Author Organization [facility] Address [address] [place] [address] Care Team Providers Care Border Police Name Role Phone Enedina Mcguire NP Primary Care Provider + [phone] Maureen Pantoja RN Unavailable Unavail able Source [...] release of HIV test results or diagnoses. [id number] Reason for Visit * Reason Comments Results Encounter Details Date Type Department Care Team (Late st Contact Info) Description 12/04/2024 Telephone [facility] Liver Transplant at [address] [address] Maureen Pantoja, RN Results Social [...] In the past 12 months has [facility], gas, oil, or water [employer] threatened to shut off services in your [...] 7.5 Patient to repeat labs tomorrow at [facility] prior to Liver and Hepatorenal [...] documented as of this encounter Care Teams Border Police Relationship Specialty Start Date End Date Enedina Mcguire NP [address] [place] [address] PCP - General Internal Medicine 10/05/24 Maureen Pantoja, RN Txp Post Coordinator Transplant Hepatology 10/28/24 documented as of this encounter
--- OUTSIDE RECORDS SUMMARY | 2025-01-05 09:56 | XMS_ITS | Encounter Summary ---
Author Organization [facility] Address [address] [place] [address] Care Team Providers Care Upper Shaper Name Role Phone Enedina Mcguire NP Primary Care Provider + [phone] Maureen Pantoja RN Unavailable Unavail able Source [...] release of HIV test results or diagnoses. [id number] Health Encounter Details Date Type Department Care Team (Late st Contact Info) Description 11/21/2024 Orders Only [facility] [place] [facility] [address] [facility] [address] [place] [address] Vasile Gordillo MA Social History [...] Recorded In the past 12 months has [employer], gas, oil, or water [employer] threatened to shut off services in [...] documented as of this encounter Care Teams Upper Shaper Relationship Specialty Start Date End Date Enedina Mcguire NP [address] [place] [address] PCP - General Internal Medicine 10/05/24 Maureen Pantoja, ЮЛИЯ Txp Post Coordinator Transplant Hepatology 10/28/24 documented as of this encounter
--- OUTSIDE RECORDS SUMMARY | 2025-01-05 09:56 | XMS_ITS | Encounter Summary ---
Author Organization [facility] Address [address] [place] [address] Care Team Providers Care Addictions Therapist Name Role Phone Enedina Mcguire NP Primary Care Provider + [phone] Maureen Pantoja RN Unavailable Unavail able Source [...] release of HIV test results or diagnoses. [id number] Health Encounter Details Date Type Department Care Team (Late st Contact Info) Description 11/20/2024 Refill [facility] Liver Transplant at [address] [place] [address] Maureen Pantoja, RN Social History Tobacco Use [...] Recorded In the past 12 months has [employer], gas, oil, or water [employer] threatened to shut off services in your [...] documented as of this encounter Care Teams Addictions Therapist Relationship Specialty Start Date End Date Enedina Mcguire NP [address] [place] [address] PCP - General Internal Medicine 10/05/24 Maureen Pantoja, ЮЛИЯ Txp Post Coordinator Transplant Hepatology 10/28/24 documented as of this encounter
--- OUTSIDE RECORDS SUMMARY | 2025-01-05 09:56 | XMS_ITS | Clinical Summary ---
Author Organization [facility] Address [address] [place] [id number] Care Team Providers Care Stitch Bonding Machine Tender Helper Name Role Phone Enedina Mcguire APRN Primary Care Provider + Allergies No known active allergies Medications riFAXIMin (Xifaxan) 550 MG tabletIndications :Hepatic encephalopathy Take 1 tablet by mouth Every 12 (Twelve) Hours. 180 tablet 023 Active Additional Information Patient not taking.Reported on 01/01/2025 folic acid (FOLVITE) 1 MG tablet Take 1 tablet by mouth Daily. 025 Active Additional Information Patient not taking.Reported on 01/01/2025 lactulose (CHRONULAC) 10 GM/15ML solution Take 30 mL by mouth 2 (Two) Times a Day. 025 Active Additional Information Patient not taking.Reported on 01/01/2025 multivitamin with minerals tablet tablet Take 1 tablet by mouth Daily. 025 Active Additional Information Patient not taking.Reported on 01/01/2025 thiamine (VITAMIN B1) 100 MG tablet Take 1 tablet by mouth Daily. 025 Active Additional Information Patient not taking.Reported on 01/01/2025 topiramate (TOPAMAX) 25 MG tablet Take by mouth. 025 Active naloxone (NARCAN) 4 MG/0.1ML nasal spray Administer 1 spray into the nostril(s) as directed by provider. 025 Active lidocaine (LIDODERM) 5 % Place 1 [...] tablet by mouth Daily. 30 tablet Active Additional Information Patient not taking.Reported on 01/01/2025 ciprofloxacin (CIPRO) 500 MG tablet Take 1 tablet by mouth Daily. Active FLUoxetine (PROzac) 20 MG capsule Take 1 capsule by mouth Daily. Active lactulose (CHRONULAC) 10 GM/15ML solution solution (encephalopathy) Take 30 mL by mouth 3 (Three) Times a Day. Active loratadine (CLARITIN) 10 MG tablet Take 1 tablet by mouth. Active methocarbamol (ROBAXIN) 500 MG tablet Take 1 tablet by mouth 2 (Two) Times a Day. Active midodrine (PROAMATINE) 10 [...] (DELTASONE) 5 MG tablet Take 1.5 tablets by mouth Daily. 025 Active valGANciclovir (VALCYTE) 450 MG tablet Take 1 tablet by mouth Daily. Active naltrexone (DEPADE) 50 MG tablet Take 1 tablet by mouth Daily. Active traMADol (ULTRAM) 50 MG tabletIndications :Cervical radiculopathy,Deep g-term use of high-risk medication,Cervic al pain (neck),Chronic pain syndrome Take 1 tablet by mouth Daily As Needed for Moderate Pain. 30 tablet 025 2024 Discontinued Active Problems Problem [...] Encounters Date Type Department Care Team Description 01/01/2025 2:15 PM EDT Office Visit [facility] PAIN [facility]NAGEMENT [address] [address] Vazquez Christie PA-C Cervical radiculopathy (Primary Dx); Long-term use of high-risk medication; Cervical spondylosis without myelopathy; Cervical pain (neck); Therapeutic drug monitoring; Chronic pain syndrome 01/01/2025 Travel 12/12/2024 Refill [facility] INTERNAL MEDICINE [address] [place] [address] Enedina Mcguire, RAMBO Acquired hypothyroidism; Secondary esophageal varices without bleeding 12/05/2024 Telephone [facility] PAIN MANAGEMENT [address] [place] [address] Vazquez Christie PA-C 12/04/2024 2:55 PM EDT Lab [facility] [place] [address] [facility] [address] [place] [address] Therapeutic drug monitoring 12/04/2024 2:15 PM EDT Office Visit [facility] PAIN [facility]NAGEMENT [address] [facility] [address] [place] [address] Vazquez Christie PA-C Cervical radiculopathy (Primary Dx); Long-term use of high-risk medication; Cervical pain (neck); Cervical spondylosis without myelopathy; Therapeutic drug monitoring; Chronic pain syndrome 12/04/2024 Travel 10/27/2024 Telephone [facility] [address] [place] [phone] Enedina Mcguire APRN CALLBACK 10/22/2024 2:15 PM EDT Office Visit [facility] PAIN [facility]NAGEMENT [address] [address] Vazquez Christie PA-C Cervical radiculopathy (Primary Dx); Cervical spondylosis without myelopathy; Cervical pain (neck); Long-term use of high-risk medication; Therapeutic drug monitoring 10/22/2024 Travel 10/21/2024 Telephone [facility] [address] [place] [address] Enedina Mcguire APRN New Med Request 10/20/2024 Telephone [facility]IN [facility]NA[facility]EMENT [address] [address] BURGESS - RX REFILL 10/20/2024 Telephone [facility] [address] [place] [address] Enedina Mcguire, BLOW PIT HELPER Med Management 10/20/2024 Refill [facility] [address] [place] [address] Enedina Mcguire, BLOW PIT HELPER Hepatic encephalopathy; Acquired hypothyroidism; Secondary esophageal varices without bleeding 10/17/2024 Telephone [facility] [address] [place] [phone] Enedina Mcguire, BLOW PIT HELPER 10/07/2024 Results Follow-Up [facility] [address] [place] [phone] Enedina Mcguire, BLOW PIT HELPER 10/07/2024 Results Follow-Up [facility] [address] [place] [phone] Enedina Mcguire, BLOW PIT HELPER from Last 3 Months Immunizations Immunization Administration [...] days sober on 08-05-[address] [facility] Utilities Answer Date Recorded In [...] Brief Depression Severity Measure Score 0 10/02/2022 [facility] - Occupational Stress [...] EDT Inhaled Oxygen Concentration - - Weight 103 kg (226 lb) 01/01/2025 2:17 PM EDT Height 193 cm (6' 3.98 ) 01/01/2025 2:17 PM EDT Body Mass Index 27.52 01/01/2025 2:17 PM EDT Plan of Treatment Upcoming Encounters Date Type Department Care Team (Late st Contact Info) Description 04/02/2025 2:15 PM EST Office Visit [facility] PAIN [facility]GEMENT [address] [facility] [address] [place] [address] Vazquez Christie PA-C [address] [facility] [address] [place] [address] Health Maintenance Due Date Last Done Comments [...] 0-49 Discontinued Medical Devices Implanted Type Area Regional Engagement Consultant Device Identifier Shelf Expiration Date Model / Serial / Lot Coil Concerto Pgla Hel Detach Sys 10mm 30cm - [id number] Implanted:Qty: 1 on 07/03/2022 by Timmy Brunner MD at [facility] Implant Left: Vein EV3 A [employer] [id number] / / [id number] Description:Coil is in the s hort gastric vein Coil Concerto Nyl Fairplay Detach Sys 10mm 30cm - [id number] Implanted:Qty: 1 on 07/03/2022 by Timmy Brunner MD at [facility] Implant Left: Vein EV3 A [employer] [id number] / / [id number] Description:Short gastric ve in Coil Concerto Nyl Fairplay Detach Sys 10mm 30cm - [id number] Implanted:Qty: 1 on 07/03/2022 by Timmy Brunner MD at [facility] Implant Left: Vein EV3 A [employer] [id number] / / [id number] Description:Short gasrtic ve in Coil Concerto Nyl Fairplay Detach Sys 10mm 30cm - [id number] Implanted:Qty: 1 on 07/03/2022 by Timmy Brunner MD at [facility] Implant Left: Vein EV3 A [employer] [id number] / / [id number] Description:Short gastric ve in Coil Concerto Nyl Fairplay Detach Sys 8mm 30cm - [id number] Implanted:Qty: 1 on 07/03/2022 by Timmy Brunner MD at [facility] Implant Left: Vein EV3 A [employer] [id number] / / [id number] Description:Short gastric ve in Coil Concerto Nyl Fairplay Detach Sys 8mm 30cm - [id number] Implanted:Qty: 1 on 07/03/2022 by Timmy Brunner MD at [facility] Implant Left: Vein EV3 A [employer] [id number] / / [id number] Description:Short gastric ve in Sys Del Liq Emb Trufill Nbca 1g Vl - [id number] Implanted:Qty: 1 on 07/03/2022 by Timmy Brunner MD at [facility] Implant Left: Vein [facility] [id number] / / [id number] Description:Short gastric ve in Plug Vasc Anton Emb Ampltz .027 6kg1g26eb - [id number] Implanted:Qty: 1 on 07/03/2022 by Timmy Brunner MD at [facility] Implant Left: Vein [employer] [id number] / / [id number] Description:Coronary vein Coil Concerto Nyl Fairplay Detach Sys 8mm 30cm - [id number] Implanted:Qty: 1 on 07/03/2022 by Timmy Brunner MD at [facility] Implant Left: Vein EV3 A [employer] [id number] / / [id number] Description:CORONARY VEIN Gelatin Emb Embocube 5.02mm 50mg Red - [id number] Implanted:Qty: 1 on 07/03/2022 by Timmy Brunner MD at [facility] Implant Left: Vein [employer] [id number] / / [id number] Description:SHORT GASTRIC VE IN Coil Emb Dona 3.7/Lp .035in 14cm 12mm - [id number] Implanted:Qty: 1 on 07/03/2022 by Timmy Brunner MD at [facility] Implant Left: Vein COOK [id number] / / [id number] Description:SHORT GASTRIC VE IN Coil Concerto Pgla Fairplay Detach Sys 12mm 30cm - [id number] Implanted:Qty: 1 on 07/03/2022 by Timmy Brunner MD at [facility] Implant Left: Vein EV3 A [employer] [id number] / / [id number] Description:Short gastric ve in Coil Concerto Nyl Fairplay Detach Sys 8mm 30cm - [id number] Implanted:Qty: 1 on 07/03/2022 by Timmy Brunner MD at [facility] Implant Left: Vein EV3 A [employer] [id number] / / [id number] Description:SHORT GASTRIC VE IN Coil Concerto Nyl Fairplay Detach Sys 8mm 30cm - [id number] Implanted:Qty: 1 on 07/03/2022 by Timmy Brunner MD at [facility] Implant Left: Vein EV3 A [employer] [id number] / / [id number] Description:Short gastric ve in Coil Concerto Nyl Fairplay Detach Sys 8mm 30cm - [id number] Implanted:Qty: 1 on 07/03/2022 by Timmy Brunner MD at [facility] Implant Left: Vein EV3 A [employer] [id number] / / [id number] Description:Short gastric ve in Coil Concerto Pgla Hel Detach Sys 14mm 40cm - [id number] Implanted:Qty: 1 on 07/03/2022 by Timmy Brunner MD at [facility] Implant Left: Vein EV3 A [employer] [id number] / / [id number] Description:Short gastric ve in Coil Concerto Pgla Hel Detach Sys 14mm 40cm - [id number] Implanted:Qty: 1 on 07/03/2022 by Timmy Brunner MD at [facility] Implant Left: Vein EV3 A [employer] [id number] / / [id number] Description:Short gastric ve in Coil Concerto Pgla Fairplay Detach Sys 14mm 30cm - [id number] Implanted:Qty: 1 on 07/03/2022 by Timmy Brunner MD at [facility] Implant Left: Vein EV3 A [employer] [id number] / / [id number] Description:Short gastric ve in Coil Concerto Pgla Fairplay Detach Sys 14mm 30cm - [id number] Implanted:Qty: 1 on 07/03/2022 by Timmy Brunner MD at [facility] Implant Left: Vein EV3 A [employer] [id number] / / [id number] Description:Short gastric ve in Coil Concerto Pgla Fairplay Detach Sys 14mm 30cm - [id number] Implanted:Qty: 1 on 07/03/2022 by Timmy Brunner MD at [facility] Implant Left: Vein EV3 A [employer] [id number] / / [id number] Description:Short gastric ve in Procedures Procedure Name [...] - IMAGING 10/05/2024 SCANNED - IMAGING 10/05/2024 HEPATITIS PANEL, ACUTE Add-On 07/08/2024 10:33 PM [...] Urine, Clean Catch (12/04/2024 2:50 PM EDT) [facility] THC, Screen, Urine Positive(A) Negative 12/04 8:32 PM EDT [facility] Phencyclidine (PCP), Urine Negative Negative 12/04/2024 8:32 PM EDT [facility] Cocaine Screen, Urine Negative Negative 12/04/2024 8:32 PM EDT [facility] Methamphetamine, Ur Negative Negative 12/04/2024 8:32 PM EDT [facility] Opiate Screen Positive(A) Negative 12/04/2024 8:32 PM EDT [facility] Amphetamine Screen, Urine Negative Negative 12/04/2024 8:32 PM EDT [facility] Benzodiazepine Screen, Urine Negative Negative 12/04/2024 8:32 PM EDT [facility] Tricyclic Antidepressants Screen Negative Negative 12/04/2024 8:32 PM EDT [facility] Methadone Screen, Urine Negative Negative 12/04/2024 8:32 PM EDT [facility] Barbiturates Screen, Urine Negative Negative 12/04/2024 8:32 PM EDT [facility] Oxycodone Screen, Urine Negative Negative 12/04/2024 8:32 PM EDT [facility] Buprenorphine, Screen, Urine Negative Negative 12/04/2024 8:32 PM EDT [facility] Urine Urine specimen obtained by clean catch procedure / Unknown Collection / Unknown 12/04/2024 2:50 PM EDT 12/04/2024 2:54 PM EDT [facility] - 12/04/2024 8:32 PM EDT [...] when unconfirmed results are used. us Vazquez Christie PA-C URINE ORDERABLES Final R esult [facility]
[address] [place] [address], * Fentanyl, Urine - Urine, Clean Catch (12/04/2024 2:50 PM EDT) Fentanyl, Urine Negative Negative 12/04/2024 9:15 PM EDT [facility] Urine Urine specimen obtained by clean catch procedure / Unknown Collection / Unknown 12/04/2024 2:50 PM EDT 12/04/2024 2:54 PM EDT Narrative [facility] - 12/04/2024 9:15 PM EDT Negative [...] when unconfirmed results are used. us Vazquez Christie PA-C URINE ORDERABLES Final R esult [facility]
[address] [place] [address], * IMAGING SCANNED (10/17/2024) Only the most recent of4 resultswithin the [...] Of Support Discussed With: Patient Care Teams Stitch Bonding Machine Tender Helper Relationship Specialty Start Date End Date Enedina Mcguire APRN [address] [place] [address] PCP - General Nurse Practitioner 10/27/24
--- OUTSIDE RECORDS SUMMARY | 2025-01-05 09:56 | XMS_ITS | Encounter Summary ---
[facility] Organization [facility] Address [address] [place] [address] Care Team Providers Care Marble Mason Name Role Phone Enedina Mcguire APRN Primary Care Provider + Reason for Visit * Reason Onset Date Comments CALLBACK 10/27/2024 Encounter Details Date Type Department Care Team ([facility] st Contact Info) Description 10/27/2024 Telephone [facility] INTER[facility] MEDICINE [address] [place] [address] Enedina Mcguire APRN [address] [place] [address] CALLBACK Social History Tobacco Use Types Packs/Day Years Used Date Smoking Tobacco: Former Cigarettes 4 20 Passive Smoke Exposure: Past Smokeless Tobacco: Current Comments:MARIJUANA USE ABOUT 2X PER WEEK - reports no use 08-05-2024 Alcohol Use Standard Drinks/Week Comments Not Currently 0 (1 standard drink = 0.6 oz pure alcohol) 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 Utilities Answer Date Recorded In the past 12 months has [employer], [employer], oil, or water [employer] threatened to shut off services in your [...] Brief Depression Severity Measure Score 0 10/02/2022 [facility] - Occupational Stress Questionnaire Answer [...] GED or equivalent No 07/09/2024 Preferred Language Sri Lankan 07/09/2024 PHQ-2 Answer Date Recorded Patient Health [...] Relationship: Emergency Contact Best call back number: [phone] What was the call regarding: WOULD LIKE A CALL BACK FROM FRANCESCA MCGUIRE HERSELF. SHE WOULD LIKE TO DISCUSS HER 'S TRANSPLANT LIST STATUS. THEY HAVE SOME GOOD NEWS TO REPORT. documented in this encounter Plan of Treatment Upcoming Encounters Date Type Department Care Team (Late st Contact Info) Description 04/02/2025 2:15 PM EST Office Visit [facility]IN [facility] [address] [facility] [address] [place] [address] Vazquez Christie PA-C [address] [place] [phone] documented as of this encounter Visit Diagnoses Not on filedocumented in this encounter Additional Health Concerns Assessment Noted Time PHQ-2 Depression Total Score: 1 12/31/19 24 3:25 PM EDT documented as of this encounter Care Teams Marble Mason Relationship Specialty Start Date End Date Enedina Mcguire APRN [address] [place] [address] PCP - General Nurse Practitioner 10/27/24 documented as of this encounter
--- OUTSIDE RECORDS SUMMARY | 2025-01-05 09:57 | XMS_ITS | Encounter Summary ---
Author Organization [facility] Address [address] [place] [address] Care Team Providers Care Flat Surfacer Jewel Name Role Phone Enedina Mcguire NP Primary Care Provider + [phone] Maureen Pantoja RN Unavailable Unavail able Source [...] release of HIV test results or diagnoses. [id number] Health Encounter Details Date Type Department Care Team (Late st Contact Info) Description 12/09/2024 Social Work [facility] Liver Transplant at [address] [place] [phone] Kaylin Willard MSW Social History Tobacco Use [...] Recorded In the past 12 months has [employer], gas, oil, or water [facility] [...] AM 11/25/2024 3:00 PM 12/10/2024 9:00 AM [id number] Score MAGALYS-7 Total Score 17 13 4 [...] post-transplant. He notes he meets with an MEAL ROOM HAND weekly and a counselor weekly through [facility]. He was agreeable to seeing transplant CD counselortoday as well. Of note, pharmacy notified transplant staff that patient also prescribed Tramadol by his pain clinic and is unable to release Naltrexone script at this time. SW to continue to follow. 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
--- OUTSIDE RECORDS SUMMARY | 2025-01-05 09:57 | XMS_ITS | Encounter Summary ---
Author Organization [facility] Address [address] [place] [address] Care Team Providers Care Supervisor Reinforced Steel Placing Name Role Phone Enedina Mcguire NP Primary Care Provider + [phone] Maureen Pantoja RN Unavailable Unavail able Source [...] release of HIV test results or diagnoses. [id number] Health Encounter Details Date Type Department Care Team (Late st Contact Info) Description 12/09/2024 Telephone [facility] Liver Transplant at [address] [address] Mitzy Gill MA Social History [...] In the past 12 months has [employer], gas, oil, or water company threatened to [...] call pharmacy with update. Patient notified via [employer]. * Mitzy Gill MA - 12/10/2024 10:09 [...] I stated we received a call from [facility] stating he picked up a tramadol prescription on 12/05 and there is an issue with him having naltrexone prescribed as well. Per CC ЮЛИЯ Reddy, Pt cannot have naltrexone filled while actively taking tramadol. Spoke to Kirt at [facility] and advised him not to [...] - 12/09/2024 12:41 PM EDT Kirt from [facility] states they received a naltrexone [...] as of this encounter Care Teams Supervisor Reinforced Steel Placing Relationship Specialty Start Date End Date Enedina Mcguire NP [address] [place] [address] PCP - General Internal Medicine 10/05/24 Maureen Pantoja, ЮЛИЯ Txp Post Coordinator Transplant Hepatology 10/28/24 documented as of this encounter
--- OUTSIDE RECORDS SUMMARY | 2025-01-05 09:57 | XMS_ITS | Encounter Summary ---
Author Organization [facility] Address [address] [place] [address] Care Team Providers Care Leather Goods Assembler Name Role Phone Enedina Mcguire NP Primary Care Provider + [phone] Maureen Pantoja RN Unavailable Unavail able Source [...] release of HIV test results or diagnoses. [id number] Health Encounter Details Date Type Department Care Team (Late st Contact Info) Description 12/09/2024 Chart Note [facility] Liver Transplant at [address] [place] [phone] Marlene Ro MA Social History Tobacco Use [...] Recorded In the past 12 months has [email or web address], gas, oil, or water [employer] threatened to shut off services in your [...] No growth URINE SPECIMEN / Unknown Result [facility] Provider MICROBIOLOGY - GENERAL OR DERABLES Final Result * (ABNORMAL) Magnesium (12/08/2024 10:43 AM EDT) Pathologist [facility] Magnesium 1.3(A) 1.6 - 2.4 mg/dL Plasma Narrative Resulting Agency Comment [facility] Result [facility] [...] Blood Narrative Resulting Agency Comment [facility] Result [facility] LAB BLOOD ORDERABLES Denisse l Result * Creatinine, urine, random (12/08/2024 10:43 AM EDT) [facility] Creatinine, Urine 65 Urine Narrative Resulting Agency Comment [facility] Result [facility] Provider URINE ORDERABLES Final Re sult * Urinalysis w/Rfl to Microscopic (12/08/2024 10:43 AM EDT) Pathologist [facility] Glucose, UA Negative Negative Ketones, UA Negative Negative Blood, UA Negative Negative Bilirubin, UA Negative Negative Urobilinogen, UA Normal Normal Protein, UA Negative Negative Nitrite, UA Negative Negative Leukocyte Esterase, UA Negative Negative pH, UA 6.0 4.5 - 8.0 Specific Clear, UA 1.010 1.005 - 1.030 Clarity, UA Clear Clear Color, UA Yellow Light Yellow, Yellow Urine Narrative Resulting Agency Comment [facility] Result [facility] Provider URINE ORDERABLES Final Re sult * Urine Protein, Tot, Random (w/o Creat) (12/08/2024 10:43 AM EDT) Total Protein, Ur 11.0 Urine Narrative Resulting Agency Comment [facility] Result [facility] Provider URINE ORDERABLES Final Re sult * (ABNORMAL) Hepatic Function Panel (12/08/2024 10:43 AM EDT) Pathologist [facility] Bilirubin, Direct 0.1 Bilirubin, Indirect 0.2 Alkaline Phosphatase 80 U/L ALT 14 U/L AST 16 U/L Total Bilirubin 0.3 0.1 - 1.4 mg/dL Total Protein 5.6(A) 6.4 - 8.2 g/dL Plasma Narrative Resulting Agency Comment [facility] Result [facility] Provider LAB BLOOD ORDERABLES Denisse [...] Blood Narrative Resulting Agency Comment [facility] us Historical Provider LAB BLOOD ORDERABLES Denisse l Result documented in this encounter Visit Diagnoses Not on filedocumented in this encounter Additional Health Concerns Infection Onset Date Last Indicated Resolved Time 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
--- OUTSIDE RECORDS SUMMARY | 2025-01-05 09:57 | XMS_ITS | Encounter Summary ---
Author Organization [facility] Address [address] [place] [address] Care Team Providers Care Staff Pharmacist Name Role Phone Enedina Mcguire NP Primary Care Provider + [phone] Maureen Pantoja RN Unavailable Unavail able Source [...] release of HIV test results or diagnoses. [id number] Health Encounter Details Date Type Department Care Team (Late st Contact Info) Description 11/04/2024 Nutrition [facility] Kidney Transplant at [address] [place] [phone] Ben Weiss, DMITRY Social History Tobacco Use [...] Recorded In the past 12 months has [employer] gas, oil, or water [employer] threatened to shut off services in your [...] times a day. naloxone (NARCAN) 4 mg/actuation [place] Apply 1 spray in one nostril if [...] as of this encounter Care Teams Staff Pharmacist Relationship Specialty Start Date End Date Enedina Mcguire NP [address] [place] [address] PCP - General Internal Medicine 10/05/24 Maureen Pantoja, RN Txp Post Coordinator Transplant Hepatology 10/28/24 documented as of this encounter
--- OUTSIDE RECORDS SUMMARY | 2025-01-05 09:57 | XMS_ITS | Encounter Summary ---
Author Organization [facility] Address [address] [place] [address] Care Team Providers Care Sales Recruitment Specialist Name Role Phone Enedina Mcguire APRN Primary Care Provider + Encounter Details Date Type Department Care Team (Latest Contact Info) Description 01/01/2025 Travel Social History Tobacco Use Types Packs/Day Years Used Date Smoking Tobacco: Former Cigarettes 4 20 Passive Smoke Exposure: Past Smokeless Tobacco: Current Comments:MARIJUANA USE ABOUT 2X PER WEEK - reports no use 08-05-2024 Alcohol Use Standard Drinks/Week Comments Not Currently 0 (1 standard drink = 0.6 oz pure alcohol) 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 [facility] Utilities Answer Date Recorded In the past 12 months has [employer], gas, oil, or water [employer] threatened to shut off services in your [...] Brief Depression Severity Measure Score 0 10/02/2022 [facility] [place] of Occupat ional Health - Occupational Stress [...] 2:15 PM EST Office Visit [facility] PAIN [facility]EMENT [address] [address] Vazquez Christie PA-C [address] [place] [address] documented as of this encounter Visit Diagnoses Not on filedocumented in this encounter Additional Health Concerns Assessment Noted Time PHQ-2 Depression Total Score: 1 12/31/19 24 3:25 PM EDT documented as of this encounter Care Teams Sales Recruitment Specialist Relationship Specialty Start Date End Date Enedina Mcguire APRN [address] [place] [address] PCP - General Nurse Practitioner 10/27/24 documented as of this encounter
--- OUTSIDE RECORDS SUMMARY | 2025-01-05 09:57 | XMS_ITS | Encounter Summary ---
Author Organization [facility] Address [address] [place] [address] Care Team Providers Care Special Population Paraprofessional Name Role Phone Enedina Mcguire NP Primary Care Provider + [phone] Maureen Pantoja RN Unavailable Unavail able Source [...] release of HIV test results or diagnoses. [id number] Reason for Visit * Reason Comments Results Encounter Details Date Type Department Care Team (Riky st Contact Info) Description 12/12/2024 Telephone [facility] Liver Transplant at [address] [address] Maureen Pantoja, RN Results Social [...] In the past 12 months has e [employer], gas, oil, or water [employer] threatened to shut off services in your [...] as of this encounter Care Teams Special Population Paraprofessional Relationship Specialty Start Date End Date Enedina Mcguire NP [address] [place] [address] PCP - General Internal Medicine 10/05/24 Maureen Pantoja, RN Txp Post Coordinator Transplant Hepatology 10/28/24 documented as of this encounter
--- OUTSIDE RECORDS SUMMARY | 2025-01-05 09:57 | XMS_ITS | Encounter Summary ---
Author Organization [facility] Address [address] [place] [address] Care Team Providers Care Deputy Attorney General Name Role Phone Enedina Mcguire NP Primary Care Provider + [phone] Maureen Pantoja RN Unavailable Unavail able Source [...] release of HIV test results or diagnoses. [id number] Reason for Referral * Diagnostic Lab (Routine) - New Request Specialty Diagnoses / Procedures Referred By Shane hernadez Referred To Contact Diagnoses Kidney transplant recipient Liver transplant recipient (CMS-HCC) Viral disease exposure Immunosuppression ([facility]) Procedures BK Virus Quantitative by PCR, Blood [facility] Liver Transplant at [address] [address] Phone: tel: fax: Referral ID Status Reason Start Date Expiration Date V isits Requested Visits Authorized [id number] New Request 12/09/2024 06/07/2025 1 1 * Diagnostic Lab (Routine) - New Request Specialty Diagnoses / Procedures Referred By Contac t Referred To Contact Diagnoses Kidney transplant recipient Liver transplant recipient (CMS-HCC) Viral disease exposure Immunosuppression (CMS-HCC) Procedures BK Virus Quantitative by PCR, Blood [facility] Liver Transplant at [address] [address] Phone: tel: fax: Referral ID Status Reason Start Date Expiration Date V isits Requested Visits Authorized [id number] New Request 12/09/2024 06/07/2025 1 1 * Diagnostic Lab (Routine) - New Request Specialty Diagnoses / Procedures Referred By Contac t Referred To Contact Diagnoses Kidney transplant recipient Liver transplant recipient (CMS-HCC) Viral disease exposure Immunosuppression (CMS-HCC) Procedures BK Virus Quantitative by PCR, Blood [facility] Liver Transplant at [address] [address] Phone: tel: fax: Referral ID Status Reason Start Date Expiration Date V isits Requested Visits Authorized [id number] New Request 12/09/2024 06/07/2025 1 1 * Diagnostic Lab (Routine) - New Request Specialty Diagnoses / Procedures Referred By Contac t Referred To Contact Diagnoses Kidney transplant recipient Liver transplant recipient (CMS-HCC) Viral disease exposure Immunosuppression (CMS-HCC) Procedures BK Virus Quantitative by PCR, Blood [facility] Liver Transplant at [address] [address] Phone: tel: fax: Referral ID Status Reason Start Date Expiration Date V isits Requested Visits Authorized [id number] New Request 12/09/2024 06/07/2025 1 1 Encounter Details Date Type Department Care Team (Late st Contact Info) Description 12/09/2024 Orders Only [facility] Liver Transplant at [address] [place] [address] Maureen Pantoja RN Kidney transplant recipient (Primary Dx); Liver transplant recipient (CMS-HCC); Viral disease exposure; Immunosuppression (CMS-HCC) Social History Tobacco Use Types Packs/Day Years Used Date Smoking Tobacco: Former Cigarettes Smokeless Tobacco: Current Alcohol Use Standard Drinks/Week Comments Yes 0 (1 standard drink = 0.6 oz pure alcohol) History of alcohol abuse, reports no use in 3 week- typically endorses use as 4 glasses of wine a days [employer] Answer Date Recorded In the past 12 months has th e [employer], gas, oil, or water company threatened to [...] Routine Kidney transplant recipient Liver transplant recipient ([facility]-H[facility]) Viral disease exposure Immunosuppression ([facility]) Expected: 01/27/2025 (Approximate), Expires: 06/11/2026 BK Virus Quantitative by PCR, Blood Lab Routine Kidney transplant recipient Liver transplant recipient ([facility]-H[facility]) Viral disease exposure Immunosuppression (CMS-HCC) Expected: 04/28/2025 (Approximate), Expires: 06/11/2026 BK Virus Quantitative by PCR, Blood Lab Routine Kidney transplant recipient Liver transplant recipient ([facility]) Viral disease exposure Immunosuppression ([facility]) Expected: 07/27/2025 (Approximate), Expires: 06/11/2026 BK Virus Quantitative by PCR, Blood Lab Routine Kidney transplant recipient Liver transplant recipient ([facility]) Viral disease exposure Immunosuppression ([facility]) Expected: 10/27/2025 (Approximate), Expires: 06/11/2026 documented as [...] as of this encounter Care Teams Deputy Attorney General Relationship Specialty Start Date End Date Enedina Mcguire NP [address] [place], [place] [id number] PCP - General Internal Medicine 10/05/24 Maureen Pantoja, ЮЛИЯ Txp Post Coordinator Transplant Hepatology 10/28/24 documented as of this encounter
--- OUTSIDE RECORDS SUMMARY | 2025-01-05 09:57 | XMS_ITS | Encounter Summary ---
Author Organization [facility] Address [address] [place] [address] Care Team Providers Care Coal Trammer Name Role Phone Enedina Mcguire APRN Primary Care Provider + Encounter Details Date Type Department Care Team (Late st Contact Info) Description 12/05/2024 Telephone [facility] PAIN MANAGEMENT [address] [place] [address] Vazquez Christie PA-C [address] [place] [address] Social History Tobacco Use Types Packs/Day Years Used Date Smoking Tobacco: Former Cigarettes 4 20 Passive Smoke Exposure: Past Smokeless Tobacco: Current Comments:MARIJUANA USE ABOUT 2X PER WEEK - reports no use 08-05-2024 Alcohol Use Standard Drinks/Week Comments Not Currently 0 (1 standard drink = 0.6 oz pure alcohol) 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 [facility] Utilities Answer Date Recorded In the past 12 months has [employer], [employer], oil, or water [employer] threatened to shut off services in [...] Measure Score 0 10/02/2022 [facility] Occupational Stress Questionnaire Answer [...] GED or equivalent No 07/09/2024 Preferred Language Romanian 07/09/2024 PHQ-2 Answer Date Recorded Patient Health [...] Upcoming Encounters Date Type Department Care Team ([facility] st Contact Info) Description 04/02/2025 2:15 PM EST Office Visit [facility] PAIN [facility]GEMENT [address] [facility] [address] [place] [address] Vazquez Christie PA-C [address] [facility] [address] [place] [address] documented as of this encounter Visit Diagnoses Not on filedocumented in this encounter Additional Health Concerns Assessment Noted Time PHQ-2 Depression Total Score: 1 12/31/19 24 3:25 PM EDT documented as of this encounter Care Teams Coal Trammer Relationship Specialty Start Date End Date Enedina Mcguire APRN [address] [place] [address] PCP - General Nurse Practitioner 10/27/24 documented as of this encounter
--- OUTSIDE RECORDS SUMMARY | 2025-01-05 09:57 | XMS_ITS | Encounter Summary ---
Author Organization [facility] Address [address] [place] [address] Care Team Providers Care Appliance Repairer Name Role Phone Enedina Mcguire APRN [...] alcohol) 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 [facility] Utilities Answer Date Recorded In the past 12 months has [employer], gas, oil, or water [employer] threatened to shut off services in [...] Brief Depression Severity Measure Score 0 10/02/2022 [facility] of Occupat ional Health - Occupational Stress [...] GED or equivalent No 07/09/2024 Preferred Language Northern Irish 07/09/2024 PHQ-2 Answer Date Recorded Patient Health [...] Description 04/02/2025 2:15 PM EST Office Visit [facility] [address] [address] Vazquez Christie PA-C [address] [place] [address] documented as of this encounter Visit Diagnoses Not on filedocumented in this encounter Additional Health Concerns Assessment Noted Time PHQ-2 Depression Total Score: 1 12/31/19 24 3:25 PM EDT documented as of this encounter Care Teams Appliance Repairer Relationship Specialty Start Date End Date Enedina Mcguire APRN [address] [place] [address] PCP - General Nurse Practitioner 10/27/24 documented as of this encounter
--- OUTSIDE RECORDS SUMMARY | 2025-01-05 09:57 | XMS_ITS | Encounter Summary ---
Author Organization [facility] Address [address] [place] [address] Care Team Providers Care Merchandising Specialist Name Role Phone Enedina Mcguire NP Primary Care Provider + [phone] Maureen Pantoja RN Unavailable Unavail able Source [...] release of HIV test results or diagnoses. [id number] Health Encounter Details Date Type Department Care Team (Late st Contact Info) Description 12/09/2024 Orders Only [facility] Liver Transplant at [address] [place] [address] Maureen Pantoja, RN Social History Tobacco Use [...] Recorded In the past 12 months has [employer], gas, oil, or water [employer] threatened to shut off services in your [...] documented as of this encounter Care Teams Merchandising Specialist Relationship Specialty Start Date End Date Enedina Mcguire NP [address] [place] [address] PCP - General Internal Medicine 10/05/24 Maureen Pantoja, ЮЛИЯ Txp Post Coordinator Transplant Hepatology 10/28/24 documented as of this encounter
--- OUTSIDE RECORDS SUMMARY | 2025-01-05 09:57 | XMS_ITS | Clinical Summary ---
Author Organization [facility] Address [address] [place] [address] Care Team Providers Care Oil Lease Broker Name Role Phone Lj Tapia Rohini RICKS Unavailable [phone] Enedina Mcguire APRN Primary Care Provider + [...] [address], [address] [place] [address] Chelsy Villanueva from Last 3 [...] How often do you attend [facility] or mosque services? Patient unable to answer 07/14/2024 Do [...] Recorded Patient Health Questionnaire-2 Score 2 09/29/2024 [facility] - Occupational Stress Questionnaire Answer Date Recorded [...] drink first t deborah in the morning (EYE-PLUMBER GASFITTER) to steady your nerves or to get rid of a hangover? 0 07/19/2024 CAGE Questionnaire Score 2 025 Utilities Answer Date Recorded In the past 12 months has th [employer], gas, oil, or water company threatened [...] Upcoming Encounters Date Type Department Care Team ([facility] st Contact Info) Description 01/08/2025 3:20 PM EDT Office Visit [facility] [place] [address], [address] [place] [address] Vincent Braga MD [address] [place] [address] Health Maintenance Due Date Last [...] 2 - 13+ 2-dose series) 10/11/2010 09/13/2010 [id number] Vaccine ( season) 2024 03/17/2021, 07/25/2020, 06/27/2020 [...] this topic Medical Devices Implanted Type Area Width Stripper Device Identifier Shelf Expiration Date Model / Serial / Lot Concerto [place] Coil-07/03/2022 Implanted:06/15 by Timmy Brunner MD (Quantity not on file) Coil Abdomen Description:Multiple Coil Co ncerto Pgla [place] Detach COILS implanted on 07/03/2022 by Timmy Brunner MD at [facility]--info can be found in Care Everywhere for [facility] as of 11/15/23 Dona Coil-07/03/2022 Implanted:06/15 by Timmy Brunner MD (Quantity not on file) Coil Abdomen [employer] Description:Coil Emb Dona 3.7/Implanted: Qty: 1 on 07/03/2022 by Timmy Brunner MD at [facility] Plate Plate N/A: Neck Plug Vasc Anton Emb Amplatzer Implanted:06/15 by Timmy Brunner MD (Quantity not on file) Plug Other Vein / / [id number] Description:Plug Vasc Anton Em b Ampltz .027 [id number] - [id number] Implanted: Qty: 1 on 07/03/2022 by Timmy Brunner MD at [facility] Stent Gastro Panc 5fr 5cm - [id number] Implanted:Qty: 1 on 11/20/2023 by Devang Mcghee, ЮЛИЯ at [facility] Pancreas [employer]-[id number] 08/13/2026 [id number] / / [id number] Procedures Procedure Name Priority Date/Time Associated Diagnosis Comments HEPATITIS C ANTIBODY W/REFLEX TO HCV QUANT PCR STAT 07/14/2024 4:31 PM EST HIV 1/2 ANTIBODY/ANTIGEN SCREEN WITH REFLEX TO HIV I/II DIFFERENTIATION STAT 07/14/2024 4:31 PM EST from Last 3 Months or Most Recently Relevant to Health Maintenance Results * HIV 1 & 2 Antibody/Antigen Screen (07/14/2024 4:31 PM EST) Pathologist [facility] HIV 1 & 2 Antibody/Antigen Screen Non [...] ORDERA BLES Final Result Performing Organization Address City/[facility] Co de Phone Number [facility] [address] [place] [address] * Hepatitis C Antibody (07/14/2024 4:31 PM EST) Pathologist [facility] Hepatitis C Antibody Negative Negative 07/14/2024 5:27 PM EST [facility] Blood Venous blood specimen / Unknown Venipuncture / Unknown 07/14/2024 4:31 PM EST 07/14/2024 4:54 PM EST Laureano Salinas APRN, DNP LAB BLOOD ORDERA BLES Final Result [facility] [address] [place] [address] from Last 3 Months or Most Recently Relevant to Health Maintenance Insurance [employer] [facility] Advance Directives * Full Code (Latest Code Status on File) Date Activated Date Inactivated Comments 07/11/2024 11:04 PM 07/23/2024 6:27 PM Question Answer Comments Patient has decision-making capacity? Yes * Full Code Date Activated Date Inactivated Comments 11/14/2023 10:15 PM 11/27/2023 9:08 PM Question Answer Comments Patient has decision-making capacity? Yes Care Teams Oil Lease Broker Relationship Specialty Start Date End Date Enedina Mcguire APRN [address] [place] [address] PCP - General 12/04/22 Lj Tapia APRN [facility] [place] [address] Referring Physician Gastroenterology 07/18/22
--- OUTSIDE RECORDS SUMMARY | 2025-01-05 09:58 | XMS_ITS | Encounter Summary ---
Author Organization [facility] Address [address] [place] [address] Care Team Providers Care Auto Parts Salesperson Name Role Phone Enedina Mcguire NP Primary Care Provider + [phone] Maureen Pantoja RN Unavailable Unavail able Source [...] release of HIV test results or diagnoses. [id number] Reason for Visit * Reason Comments Results Encounter Details Date Type Department Care Team (Late st Contact Info) Description 12/29/2024 Telephone [facility] Liver Transplant at [address] [address] Maureen Pantoja, RN Results Social [...] In the past 12 months has e [employer], gas, oil, or water [employer] threatened to [...] as of this encounter Care Teams Auto Parts Salesperson Relationship Specialty Start Date End Date Enedina Mcguire NP [address] [place] [address] PCP - General Internal Medicine 10/05/24 Maureen Pantoja, RN Txp Post Coordinator Transplant Hepatology 10/28/24 documented as of this encounter
--- OUTSIDE RECORDS SUMMARY | 2025-01-05 09:58 | XMS_ITS | Encounter Summary ---
Author Organization [facility] Address [address] [place] [address] Care Team Providers Care Peoplesoft Administrator Name Role Phone Enedina Mcguire APRN Primary Care Provider + Reason for Visit * Reason Comments Med Refill Encounter Details Date Type Department Care Team ([facility] st Contact Info) Description 12/12/2024 Refill [facility] INTERNAL MEDICINE [address] [place] [address] Enedina Mcguire APRN [address] [place], [place] [id number] Acquired hypothyroidism; Secondary esophageal varices without bleeding Social History Tobacco Use Types Packs/Day Years Used Date Smoking Tobacco: Former Cigarettes 4 20 Passive Smoke Exposure: Past Smokeless Tobacco: Current Comments:MARIJUANA USE ABOUT 2X PER WEEK - reports no use 08-05-2024 Alcohol Use Standard Drinks/Week Comments Not Currently 0 (1 standard drink = 0.6 oz pure alcohol) 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 [facility] Utilities Answer Date Recorded In the past 12 months has [employer], gas, oil, or water [employer] threatened to shut off services in [...] 0 10/02/2022 [facility] - Occupational Stress Questionnaire Answer [...] GED or equivalent No 07/09/2024 Preferred Language Israeli 07/09/2024 PHQ-2 Answer Date Recorded Patient Health [...] Description 04/02/2025 2:15 PM EST Office Visit [facility] PAIN [facility] [address] [address] Vazquez Christie PA-C [address] [place] [address] documented as of this encounter Visit Diagnoses Diagnosis Acquired hypothyroidism Unspecified hypothyroidism Secondary esophageal varices without bleeding documented in this encounter Additional Health Concerns Assessment Noted Time PHQ-2 Depression Total Score: 1 12/31/19 24 3:25 PM EDT documented as of this encounter Care Teams Peoplesoft Administrator Relationship Specialty Start Date End Date Enedina Mcguire APRN [address] [place] [address] PCP - General Nurse Practitioner 10/27/24 documented as of this encounter
--- OUTSIDE RECORDS SUMMARY | 2025-01-05 09:58 | XMS_ITS | Clinical Summary ---
Author Organization [facility] Address [facility] [address] [place] [address] Care Team Providers Care Novelty Twister Operator Name Role Phone Enedina Mcguire NP Primary Care Provider + [phone] Maureen Pantoja RN Unavailable Unavail able Source [...] therelease of HIV test results or diagnoses. [id number] Allergies Active Allergy Reactions Criticality [...] EDT 025 Active naloxone (NARCAN) 4 mg/actuation [place]dermitt Apply 1 spray in one nostril if [...] Encounter for therapeutic drug monitoring,S/P liver transplant ([facility]),Hypomagn esemia,Kidney transplant recipient,Hyperten kevin, unspecified type,Gastroesophag eal reflux disease, unspecified whether esophagitis present Take 3 tablets (975 mg total) by mouth every 8 hours. 200 tablet Active ergocalciferol (ERGOCALCIFEROL) 1,250 mcg (50,000 unit) capsuleIndications :Encounter for therapeutic drug monitoring,S/P liver transplant ([facility]),Hypomagn esemia,Kidney transplant recipient,Hyperten kevin, unspecified type,Gastroesophag eal reflux disease, unspecified whether esophagitis present Take 1 capsule (50,000 Units total) by mouth once a week. 4 capsule 2 Active famotidine (PEPCID) 20 MG tabletIndications: Encounter for therapeutic drug monitoring,S/P liver transplant ([facility]),Hypomagn esemia,Kidney transplant recipient,Hyperten kevin, unspecified type,Gastroesophag eal reflux disease, unspecified whether esophagitis present Take 1 tablet (20 mg total) by mouth 2 times a day. 60 tablet 2 07/15/2 025 Active sulfamethoxazole-t rimethoprim (BACTRIM) 400-80 mg per tabletIndications: Encounter for therapeutic drug monitoring,S/P liver transplant ([facility]),Hypomagn esemia,Kidney transplant recipient,Hyperten kevin, unspecified type,Gastroesophag eal reflux disease, unspecified whether esophagitis present Take 1 tablet by mouth daily. 30 tablet 2 025 Active gabapentin (NEURONTIN) 100 MG capsuleIndications :Encounter for therapeutic drug monitoring,S/P liver transplant ([facility]),Hypomagn esemia,Kidney transplant recipient,Hyperten kevin, unspecified type,Gastroesophag eal [...] :Encounter for therapeutic drug monitoring,S/P liver transplant ([facility]),Hypomagn esemia,Kidney transplant recipient,Hyperten kevin, unspecified type,Gastroesophag eal reflux disease, unspecified whether esophagitis present Take 2 capsules (500 mg total) by mouth 2 times a day. 120 capsule 5 025 Active valGANciclovir (VALCYTE) 450 mg tabletIndications: Encounter for therapeutic drug monitoring,S/P liver transplant ([facility]),Hypomagn esemia,Kidney transplant recipient,Hyperten kevin, unspecified type,Gastroesophag eal reflux disease, unspecified whether esophagitis present Take 2 tablets (900 mg total) by mouth daily. 60 tablet 025 Active NIFEdipine (PROCARDIA-XL) 30 MG (OSM) 24 hr tabletIndications: Encounter for therapeutic drug monitoring,S/P liver transplant ([facility]),Hypomagn esemia,Kidney transplant recipient,Hyperten kevin, unspecified type,Gastroesophag eal reflux disease, unspecified whether esophagitis present Take 1 tablet by mouth once daily 30 tablet 2 025 Active predniSONE (DELTASONE) 5 MG tablet Take 1.5 tablets (7.5 mg total) by mouth daily. 45 tablet 1 Active tacrolimus (PROGRAF) 1 MG capsuleIndications :Prevention of Kidney Transplant Rejection,Preventi on of Liver Transplant Rejection Take 5 capsules (5 mg total) by mouth every morning AND 6 capsules (6 mg total) every evening. Use as directed. Indications: Prevention of Kidney Transplant Rejection, Prevention of Liver Transplant Rejection. 330 capsule 5 Active pen needle, diabetic 32 gauge x Ndle For use with insulin pen. Use as instructed. 100 each 11/03/19 10:20 AM EDT 12/09 Discontinued blood-glucose [...] 349 mg/dL = 12 units 15 mL 11/03/19 10:20 AM EDT 12/09 Discontinued methocarbamoL (ROBAXIN) 500 MG tablet Take 2 tablets (1,000 mg total) by mouth 3 times a day. 180 tablet 11/03/19 10:20 AM EDT 12/18 Discontinued( Refill / Reorder) NIFEdipine (PROCARDIA-XL) 30 MG (OSM) 24 hr tabletIndications: Encounter for therapeutic drug monitoring,S/P liver transplant ([facility]),Hypomagn esemia,Kidney transplant recipient,Hyperten kevin, unspecified type,Gastroesophag eal [...] Encounter for therapeutic drug monitoring,S/P liver transplant ([facility]),Hypomagn esemia,Kidney transplant recipient,Hyperten kevin, unspecified type,Gastroesophag eal reflux disease, unspecified whether esophagitis present Take 1 tablet (450 mg total) by mouth daily. 30 tablet 2 025 12/09 Discontinued( Refill / Reorder) mycophenolate (CELLCEPT) 250 mg capsuleIndications :Encounter for therapeutic drug monitoring,S/P liver transplant ([facility]),Hypomagn esemia,Kidney transplant recipient,Hyperten kevin, unspecified type,Gastroesophag eal reflux disease, unspecified whether esophagitis present Take 2 capsules (500 mg total) by mouth 2 times a day. 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 500mg daily - HE: [...] of blood s/p APC - Ascites: para / for 4L, 09/03 1L; no diuretics due [...] Encounters Date Type Department Care Team Description 01/05/2025 Telephone [facility] Liver Transplant at [address] [place] [address] Maureen Pantoja, RN Results 12/31/2024 Chart Note [facility] Liver Transplant at [address] [place] [address] Marlene Ro MA 12/31 Labs entered from [facility] 12/29/2024 Telephone [facility] Liver Transplant at [address] [place] [address] Maureen Pantoja, RN Results 12/23/2024 Chart Note [facility] Liver Transplant at [address] [place] [address] Maureen Pantoja, certification officer results from 12/23/24 entered from [facility]. 12/22/2024 Telephone [facility] Liver Transplant at [address] [place] [address] Maureen Pantoja, RN Results; Medication Dose Change 12/21/2024 Refill [facility] Liver Transplant at [address] [place] [address] Lydia Sanchez MD Encounter for therapeutic drug monitoring; S/P liver transplant (CMS-HCC); Hypomagnesemia; Kidney transplant recipient; Hypertension, unspecified type; Gastroesophageal reflux disease, unspecified whether esophagitis present 12/18/2024 2:00 PM EDT Office Visit [facility] Psychiatry Transplant at [address] [address] Lizeth Warren PsyD Alcohol use disorder (Primary Dx); PTSD (post-traumatic stress disorder) 12/18/2024 Refill [facility] Liver Transplant at [address] [address] Maureen Pantoja, ЮЛИЯ Encounter for therapeutic drug monitoring; S/P liver transplant ([facility]); Hypomagnesemia; Kidney transplant recipient; Hypertension, unspecified type; Gastroesophageal reflux disease, unspecified whether esophagitis present 12/17/2024 Chart Note [facility] Liver Transplant at [address] [address] Marlene Ro MA 12/16 Labs entered [facility] 12/12/2024 Telephone [facility] Liver Transplant at [address] [address] Maureen Pantoja, RN Results 12/09/2024 11:45 AM EDT Office Visit [facility] Psychiatry Transplant at [address] [address] Rebekah Linares LICDC Alcohol use disorder (Primary Dx) 12/09/2024 10:20 AM EDT Office Visit [facility] Liver Transplant at [address] [address] Harvey Domínguez III, MD Encounter for therapeutic drug monitoring (Primary Dx); S/P liver transplant ([facility]); Hypomagnesemia; Kidney transplant recipient; Hypertension, unspecified type; Gastroesophageal reflux disease, unspecified whether esophagitis present 12/09/2024 9:50 AM EDT Office Visit [facility] Liver Transplant at [address] [address] Leisa Juarez MD Kidney transplant recipient (Primary Dx); Immunosuppressive management encounter following liver transplant (CMS-HCC); Hypomagnesemia; S/P liver transplant (CMS-HCC); Hypertension, unspecified type; Hyperparathyroidism (CMS-HCC) 12/09/2024 Social Work [facility] Liver Transplant at [address] [place] [address] Kaylin Willard MSW 12/09/2024 Orders Only [facility] Liver Transplant at [address] [place] [address] Maureen Pantoja, ЮЛИЯ 12/09/2024 Orders Only [facility] Liver Transplant at [address] [place] [address] Maureen Pantoja, ЮЛИЯ Kidney transplant recipient (Primary Dx); Liver transplant recipient (CMS-HCC); Viral disease exposure; Immunosuppression ([facility]) 12/09/2024 Telephone [facility] Liver Transplant at [address] [place] [address] Mitzy Rojas MA 12/09/2024 Chart Note [facility] Liver Transplant at [address] [place] [address] Marlene Ro MA 12/04/2024 Telephone [facility] Liver Transplant at [address] [place] [address] Maureen Pantoja, ЮЛИЯ Results 12/04/2024 Chart Note [facility] Liver Transplant at [address] [place] [address] Marlene Ro MA FK Pending-12/0412/04/2024 Telephone [facility] Liver Transplant at [address] [place] [address] Kaylin Willard MSW 12/04/2024 Telephone [facility] Liver Transplant at [address] [place] [address] Marlene Ro MA 12/03/2024 Chart Note [facility] Liver Transplant at [address] [place] [address] Marlene Ro MA 12/02/2024 Telephone [facility] Liver Transplant at [address] [place] [address] Mitzy Rojas MA 12/01/2024 Telephone [facility] Liver Transplant at [address] [place] [address] Gladis Chisholm MA 11/27/2024 Telephone [facility] Liver Transplant at [address] [place] [address] Maureen Pantoja, RN Results 11/27/2024 Chart Note [facility] Liver Transplant at [address] [place] [address] Marlene Ro MA FK Pending 11/27 Labs 11/26/2024 Telephone [facility] Liver Transplant at [address] [place] [address] Maureen Pantoja, RN Results 11/25/2024 10:50 AM EDT Office Visit [facility] Liver Transplant at [address] [place] [address] Leisa Juarez MD Kaur, Taranpreet NADIYA (acute kidney injury) (CMS-HCC) (Primary Dx); Kidney replaced by transplant; Metabolic acidosis; Hypervolemia associated with renal insufficiency 11/25/2024 10:20 AM EDT Office Visit [facility] Liver Transplant at [address] [place] [address] [place] [address] Lydia Sanchez MD Encounter for therapeutic drug monitoring (Primary Dx); S/P liver transplant (CMS-HCC); Hypomagnesemia; Kidney transplant recipient; Hypertension, unspecified type; Gastroesophageal reflux disease, unspecified whether esophagitis present; Abdominal pain, unspecified abdominal location 11/25/2024 9:00 AM EDT Procedure visit [facility] Urology at [facility] [address] [facility] [place] [address] [place] [address] Julieta Rogers PA Retained ureteral stent of transplanted kidney (CMS-HCC) (Primary Dx) 11/25/2024 Social Work [facility] Liver Transplant at [address] [place] [address] Kaylin Willard MSW 11/24/2024 Orders Only [facility] Liver Transplant at [address] [place] [address] Maureen Pantoja, ЮЛИЯ 11/21/2024 Orders Only [facility]rology at [facility] [address] [facility] [place] [place] [phone] Vasile Gordillo MA 11/21/2024 Telephone [facility] Liver Transplant at [address] [place] [address] [place] [address] Maureen Pantoja, RN Results 11/21/2024 Chart Note [facility] Liver Transplant at [address] [place] [address] [place] [address] Marlene Ro MA FK: 11/18 & 11/20 Pending 11/20/2024 Refill [facility] Liver Transplant at [address] [address] Maureen Pantoja, ЮЛИЯ 11/20/2024 Refill [facility] Liver Transplant at [address] [address] Maureen Pantoja, ЮЛИЯ 11/20/2024 Orders Only [facility] Liver Transplant at [address] [address] Maureen Pantoja, ЮЛИЯ S/P liver transplant ([facility]) (Primary Dx); Immunosuppression ([facility]); Viral disease exposure; Alcohol use 11/18/2024 Telephone [facility] Liver Transplant at [address] [address] Maureen Pantoja, RN Results 11/18/2024 Chart Note [facility] Liver Transplant at [address] [address] Marlene Ro MA 11/11/2024 10:30 AM EDT Office Visit [facility] Liver Transplant at [address] [address] Unknown, Attending Provider Jessica Colon Kidney replaced by transplant (Primary Dx); Hypervolemia associated with renal insufficiency 11/11/2024 10:00 AM EDT Office Visit [facility] Liver Transplant at [address] [address] Comso Pacheco MD Quillin, Harvey Talamantes III, MD Encounter for therapeutic drug monitoring (Primary Dx); Abdominal pain, unspecified abdominal location 11/11/2024 9:30 AM EDT Office Visit [facility] Psychiatry Transplant at [address] [phone] Lizeth Warren PsyD PTSD (post-traumatic stress disorder) (Primary Dx) 11/11/2024 8:50 AM EDT [facility] [address] [place] [address] Harvey Domínguez III, MD Liver replaced by transplant ([facility]); Immunosuppressive management encounter following liver transplant ([facility]); Kidney transplant recipient 11/11/2024 Telephone [facility] Liver Transplant at [address] [address] Maureen Pantoja, ЮЛИЯ Results 11/10/2024 Orders Only [facility] Liver Transplant at [address] [address] Maureen Pantoja, ЮЛИЯ Liver transplant recipient ([facility]) (Primary Dx); Kidney transplant recipient; Immunosuppressive management encounter following liver transplant ([facility]) 11/10/2024 Orders Only [facility] Liver Transplant at [address] [address] Maureen Pantoja, ЮЛИЯ 11/09/2024 Telephone [facility] [address] [place] [address] Unknown, Attending Provider After Hours Call (Passing blood through stool states started this morning has had 3 bloody bowel movements kidney and liver txp done 2 weeks ago) 11/07/2024 Telephone [facility] Liver Transplant at [address] [address] Marlene Ro MA 11/07/2024 Telephone [facility] Liver Transplant at [address] [address] Maureen Pantoja, RN Results 11/07/2024 Chart Note [facility] Liver Transplant at [address] [address] Marlene Ro MA FK Pending 11/04/2024 10:10 AM EDT Office Visit [facility] Liver Transplant at [address] [address] Leisa Juarez MD Kidney transplant recipient (Primary Dx); Diarrhea of presumed infectious origin; Hypomagnesemia; Hypervolemia, unspecified hypervolemia type; Liver transplant recipient (CMS-HCC); Other hypervolemia; Hyperparathyroidism (CMS-HCC); Nausea and vomiting, unspecified vomiting type 11/04/2024 8:40 AM EDT Office Visit [facility] Liver Transplant at [address] [address] Cosmo Pacheco MD Liver transplant recipient (CMS-HCC) (Primary Dx); Alcoholic cirrhosis of liver with ascites ([facility]); Kidney transplant recipient; Acute kidney injury superimposed on CKD ([facility]); CKD (chronic kidney disease) stage 4, GFR 15-29 ml/min ([facility]); Immunosuppressive management encounter following liver transplant ([facility]); Abdominal pain, unspecified abdominal location 11/04/2024 Telephone [facility] Liver Transplant at [address] [address] Maureen Pantoja, ЮЛИЯ Results 11/04/2024 Results Follow-Up [facility] Liver Transplant at [address] [address] Maureen Pantoja, ЮЛИЯ Tacrolimus level, Hepatic Function Panel, Renal Function Panel w/EGFR, Additional followed-up results: 3 11/04/2024 Social Work [facility] Liver Transplant at [address] [place] [address] Kaylin Willard MSW 11/04/2024 Nutrition [facility] Kidney Transplant at [address] [phone] Ben Weiss, DMITRY 11/03/2024 Chart Note [facility] Liver Transplant at [address] [place] [address] Hillary Fernandes, [facility] Liver Transplant Pharmacy Discharge Note 11/03/2024 Telephone [facility] Liver Transplant at [address] [place] [address] Marisela Martinez MA 10/31/2024 Orders Only [facility] Liver Transplant at [address] [address] Harvey Domínguez III, MD Liver replaced by transplant ([facility]) (Primary Dx); Immunosuppressive management encounter following liver transplant ([facility]) 10/29/2024 Travel 10/29/2024 Education Chart Note [facility] Liver Transplant at [address] [phone] Crista Power RN 10/27/2024 2:34 AM EDT Anesthesia Event [facility] [address] [place] [phone] Rocky Manning MD Kopel, Lior, MD 10/27/2024 2:00 AM EDT - 10/27/2024 6:54 AM EDT Surgery [facility] [address] [place] [phone] Harvey Domínguez III, MD Donor Kidney Transplant , Back Bench Preparation Donor Kidney, Baseline Kidney transplant biopsy , Insertion of Indwelling Stent , Removal of Perihepatic packing 10/27/2024 Pharmacy Services [facility] [address] [place] [phone] Opal Cox, PharmD 10/27/2024 Chart Note [facility] Kidney Transplant at [address] [address] Karen Rosen, RN I have verified that the donor serologies entered in Epic match the donor 10/27/2024 Chart Note [facility] Liver Transplant at [address] [address] Crista Power, RN I introduced myself as inpatient liver/kidney member services coordinator, 10/27/2024 Orders Only [facility] Pancreas Transplant at Outpatient [address] [address] Abdulkadir Gaspar MD 10/26/2024 Chart Note [facility] Kidney Transplant at [address] [address] Geri Vasquez RN 10/26/2024 Chart Note [facility] Liver Transplant at [address] [address] Geri Vasquez RN 10/25/2024 10:54 PM EDT Anesthesia Event [facility] [place] [address] Eber Quinones MD Edwards, Anna, MD 10/25/2024 10:30 PM EDT - 10/26/2024 6:12 AM EDT Surgery [facility] [place] [address] Harvey Domínguez III, MD LIVER TRANSPLANT 10/25/2024 8:46 PM EDT - 11/02/2024 6:23 PM EDT Hospital Encounter [facility] [address] [place] [address] Harvey Domínguez III, MD Haugen, Christine, MD Acute kidney injury superimposed on CKD (CMS-HCC) (Primary Dx); Prophylactic antibiotic; Prolonged QT interval; Immunosuppression (CMS-HCC); Abdominal pain, unspecified abdominal location Discharge Disposition: Home or Self Care WITHOUT Home Care Services 10/25/2024 Travel 10/25/2024 Telephone [facility] Liver Transplant at [address] [place] [address] Krissy Crowell, RN DDLT patient instructions 10/25/2024 Telephone [facility] Liver Transplant at [address] [place] [phone] Krissy Crowell, RN 10/24/2024 Telephone [facility] Renal Hypertension Clinic at [address] [place] [address] Joann Davies MA Appointment 10/22/2024 Telephone [facility] Liver Transplant at [address] [place] [phone] Mary Butler RN 10/22/2024 Chart Note [facility] Kidney Transplant at [address] [place] [address] Gladis Rainey, RN Received most recent eGFR from today with result of 21. Pt meets CKD 10/22/2024 Chart Note [facility] Liver Transplant at [address] [place] [phone] Faraz Carballo, ЮЛИЯ 2nd ABO verified for [facility] listing at the request of JOSE G Butler. 10/22/2024 Telephone [facility] Psychiatry Transplant at [address] [place] [phone] Lizeth Warren PsyD 10/22/2024 Chart Note [facility] [address] [place] [address] Aaron Gonzalez MD Candidacy for a simultaneous liver-kidney transplant 10/22/2024 Status Update [facility] Kidney Transplant at [address] [place] [address] Aaron Gonzalez MD 10/22/2024 Chart Note [facility] Liver Transplant at [address] [place] [address] Mary Butler, RN UNOS VERIFICATION CHECK FORM 10/22/2024 Orders Only [facility] Pancreas Transplant at [facility] [address] [place] [address] [address] Abdulkadir Gaspar MD 10/22/2024 Chart Note [facility] Liver Transplant at [address] [place] [address] Mary Butler, ЮЛИЯ 10/21/2024 Telephone [facility] Gastroenterology at [facility] [address] [facility] [address] [place] [address] Gerri Peterson MD Medication Management (Requesting RX for New Medication ) 10/21/2024 Refill [facility] Gastroenterology at [facility] [address] [facility] [address] [place] [address] Gerri Peterson MD 10/20/2024 9:10 AM EDT - 10/20/2024 11:59 PM EDT Hospital Encounter [facility] Radiology [address] [place] [address] System, Provider Not In Discharge Disposition: Home or Self Care WITHOUT Home Care Services 10/20/2024 9:10 AM EDT - 10/20/2024 11:59 PM EDT Hospital Encounter [facility] Radiology [address] [place] [address] System, Provider Not In Discharge Disposition: Home or Self Care WITHOUT Home Care Services 10/20/2024 9:10 AM EDT - 10/20/2024 11:59 PM EDT Hospital Encounter [facility] Radiology [address] [place] [address] System, Provider Not In Discharge Disposition: Home or Self Care WITHOUT Home Care Services 10/20/2024 9:10 AM EDT - 10/20/2024 11:59 PM EDT Hospital Encounter [facility] [address] [place] [address] System, Provider Not In Discharge Disposition: Home or Self Care WITHOUT Home Care Services 10/20/2024 9:10 AM EDT - 10/20/2024 11:59 PM EDT Hospital Encounter [facility] Radiology [address] [place] [address] System, Provider Not In Discharge Disposition: Home or Self Care WITHOUT Home Care Services 10/20/2024 9:10 AM EDT - 10/20/2024 11:59 PM EDT Hospital Encounter [facility] Radiology [address] [address] System, Provider Not In Discharge Disposition: Home or Self Care WITHOUT Home Care Services 10/20/2024 9:10 AM EDT - 10/20/2024 11:59 PM EDT Hospital Encounter [facility] Radiology [address] [place] [address] System, Provider Not In Discharge Disposition: Home or Self Care WITHOUT Home Care Services 10/20/2024 Orders Only [facility] Pancreas Transplant at [facility] [address] [place] [address] Abdulkadir Gaspar MD 10/20/2024 Telephone [facility] Gastroenterology at [facility] [address] [facility] [address] [place] [phone] Gerri Peterson MD Prescription Issue (RX Clarification Request ) 10/20/2024 Refill [facility] Gastroenterology at [facility] [address] [facility] [address] [place] [phone] Gerri Peterson MD 10/20/2024 Telephone [facility] Liver Transplant at [address] [place] [address] Mary Butler, ЮЛИЯ 10/17/2024 Chart Note [facility] Kidney Transplant at [address] [place] [address] Anny Cote, RN Copy of HLA report scanned into the media tab. Will follow up on GFR 10/17/2024 Chart Note [facility] Kidney Transplant at [address] [address] Anny Cote, RN 10/17/2024 Pharmacy Services [facility] [address] [place] [phone] Ridge Menjivar [facility] 10/14/2024 8:42 AM EDT - 10/14/2024 9:27 AM EDT Surgery [facility] Cardiac Gm [address] [place] [address] Irving Matta MD Left Heart Cath 10/14/2024 Chart Note [facility] Kidney Transplant at [address] [phone] Dean Rob[facility] [phone] 10/10/2024 12:01 PM EDT Anesthesia Event [facility] ENDOSCOPY [address] [place] [phone] Cady Bhat MD Nguyen, Quinn, MD 10/10/2024 10:36 AM EDT - 10/10/2024 11:06 AM EDT Surgery [facility] ENDOSCOPY [address] [place] [address] Lino Soto MD EGD 10/09/2024 Social Work [facility] Liver Transplant at [address] [place] [address] Kaylin Willard MSW 10/09/2024 Chart Note [facility] Kidney Transplant at [address] [phone] Dean Rob[facility] [phone] call from Elle [facility] fx [phone] 10/09/2024 Chart Note [facility] Kidney Transplant at [address] [address] Dean Rob[facility] [phone] 10/07/2024 Chart Note [facility] Liver Transplant at [address] [phone] Mary Butler, ЮЛИЯ Spoke with Blair Anderson today for evaluation for a combined liver and 10/07/2024 Chart Note [facility] Kidney Transplant at [address] [place] [address] Anny Cote, RN Received notice of in house evaluation. Message to nephrology 10/07/2024 Chart Note [facility] Kidney Transplant at [address] [place] [place] [address] Chey Nicole MA This MA received new referral for PT. Will FU once financially cleared. 10/07/2024 Chart Note [facility] Kidney Transplant at [address] [address] [place] [address] Anny Cote RN Simultaneous Liver-Kidney Transplant Referral 10/06/2024 Travel 10/05/2024 11:12 PM EDT - 10/17/2024 10:29 AM EDT Hospital Encounter [facility] [address] [place] [phone] Gómez Blanchard MD Wood, Sharice N, MD [...] Care WITHOUT Home Care Services 10/05/2024 Telephone [facility] PATIENT SERVICES [address] [place] [address] Unknown, Attending Provider After Hours Call from Last 3 Months Social History Tobacco [...] In the past 12 months has e [employer], gas, oil, or water [employer] threatened to shut off services in your [...] 12/10/2024, 09/29/2024, Additional history exists Renal Function/GFR 12/31/2025 12/31/2024, 0 12/23/2024, 12/16/2024, Additional history exists Immunization: DTaP/Tdap/Td ( 3 - Td or Tdap) 06/03/2028 06/03/2018, 09/13/2010 Hepatitis C Screening (MyChart) Completed 10/25/2024, 10/07/2024, 10/06/2024, Additional history exists HIV Screening Completed 11/25/2024, 10/12, 10/07/2024 Procedures Procedure Name Priority Date/Time Associated Diagnosis Comments TACROLIMUS LEVEL Routine 12/31/2024 9:41 AM EDT BK VIRUS QUANTITATIVE BY PCR, BLOOD Routine 12/31/2024 9:41 AM EDT MAGNESIUM Routine 12/31/2024 9:41 AM EDT HEPATIC FUNCTION PANEL Routine 9:41 AM EDT RENAL FUNCTION PANEL W/O EGFR Routine 12/31/2024 9:41 AM EDT CREATININE, URINE, RANDOM Routine 2024 9:41 AM EDT URINALYSIS W/RFL TO MICROSCOPIC Routine 12/31/2024 9:41 AM EDT CBC AND DIFFERENTIAL Routine 12/31/2024 9:41 AM EDT URINE PROTEIN, TOTAL, RANDOM (W/O CREATININE) Routine 12/31/2024 9:41 AM EDT TACROLIMUS LEVEL Routine 12/23/2024 9:53 AM EDT MAGNESIUM Routine 12/23/2024 9:53 AM EDT RENAL FUNCTION PANEL W/O EGFR Routine 12/23/2024 9:53 AM EDT PROTIME-INR Routine 12/23/2024 9:53 AM EDT CBC AND DIFFERENTIAL Routine 12/23/2024 9:53 AM EDT HEPATIC FUNCTION PANEL Routine 9:53 AM EDT CBC AND DIFFERENTIAL Routine 12/23/2024 9:53 AM EDT TACROLIMUS LEVEL Routine 12/16/2024 10:05 AM EDT [...] AM EDT S/P liver transplant (CMS-HCC) Immunosuppression ([facility]-HCC) Alcohol use HIV-1 RNA, QUANTITATIVE, PCR Routine 11/25/2024 8:42 AM EDT S/P liver transplant (CMS-HCC) Immunosuppression ([facility]-HCC) Viral disease exposure HEPATITIS C RNA, [...] Routine 10/31/2024 10:19 AM EDT US DUPLEX [id number] COMPLETE Routine 10/31/2024 10:19 AM EDT ECG [...] STAT 10/28/2024 4:23 PM EDT US DUPLEX [id number] COMPLETE STAT 10/28/2024 4:23 PM EDT TRANSFUSE [...] STAT 10/27/2024 9:51 AM EDT US DUPLEX [id number] COMPLETE STAT 10/27/2024 9:51 AM EDT US [...] superimposed on CKD ([facility]-HCC) [place] RENAL ALTRNSPLJ IMPLTJ GRF W/VEHICLE DISMANTLER NEPHRECTOMY 10/27/2024 2:32 AM EDT Acute kidney [...] LIPID PANEL Routine 10/07/2024 6:37 PM EDT [id number] (AAT) QUANTITATION & MUTATION Routine 10/07/2024 6:37 [...] Routine 10/07/2024 3:48 PM EDT US DUPLEX [id number] COMPLETE Routine 10/07/2024 3:48 PM EDT CARISA [...] RANDOM Routine 10/07/19 25 11:51 AM EDT POTASSIUM, URINE, RANDOM Routine [...] 10/06/2024 4:01 AM EDT UPPER RESPIRATORY VIRAL/BACTERIAL PANEL-VP AD SALES WE[employer] ONLY Routine 10/06/2024 3:12 AM EDT XR [...] BLOOD CULTURE-PERIPHERAL Routine 025 1:04 AM EDT from Last 3 Months Results * Urine Protein, Tot, Random (w/o Creat) (12/31/2024 9:41 AM EDT) Only the most recent of3 resultswithin the time period is included. Total Protein, Ur 17.0 Urine Narrative Resulting Agency Comment [facility] Result [facility] URINE ORDERABLES Final Re sult * BK Virus Quantitative by PCR, Blood (12/31/2024 9:41 AM EDT) BK Virus Quant PCR PL Negative Plasma Result [facility] MD LAB BLOOD ORDERABLES Denisse l Result * Hepatic Function Panel (12/31/2024 9:41 AM EDT) Only the most recent of40 resultswithin the time period is included. Bilirubin, Direct 0.1 Bilirubin, Indirect 0.4 Alkaline Phosphatase 66 ALT 14 AST 22 Total Bilirubin 0.5 Total Protein 6.4 Plasma Narrative Resulting Agency Comment [facility] Result [facility] LAB BLOOD ORDERABLES Denisse l Result * Tacrolimus level (12/31/2024 9:41 AM EDT) Only the most recent of19 resultswithin the time period is included. Tacrolimus Lvl 8.0 6 - 15 ng/mL Whole Blood Result [facility] LAB BLOOD ORDERABLES Denisse l Result * Creatinine, urine, random (12/31/2024 9:41 AM EDT) Only the most recent of4 resultswithin the time period is included. Creatinine, Urine 57 Urine Narrative Resulting Agency Comment [facility] Result [facility] URINE ORDERABLES Final Re sult * Urinalysis w/Rfl to Microscopic (12/31/2024 9:41 AM EDT) Only the most recent of8 resultswithin the time period is included. Pathologist [facility] Glucose, UA Negative Negative Ketones, UA Negative Negative Blood, UA Negative Negative Bilirubin, UA Negative Negative Urobilinogen, UA Normal Normal Protein, UA Negative Negative pH, UA 5.5 4.5 - 8.0 Specific [place], UA 1.025 1.005 - 1.030 Clarity, UA Clear Clear Color, UA Yellow Light Yellow, Yellow Urine Narrative Resulting Agency Comment [facility] Historical Provider URINE ORDERABLES Final Re sult * (ABNORMAL) CBC and differential (12/31/2024 9:41 AM EDT) Only the most recent of12 resultswithin the time period is included. Pathologist [facility] Hemoglobin 11.4(A) 13.5 - 17.5 g/dL Hematocrit 33.0(A) 41 - 53 % RDW 15.7(A) 11.5 - 14.5 % Lymphocytes Absolute 1.2 / L Monocytes Absolute 0.3 / L Eosinophils Absolute 0.0 / L Basophils Absolute 0.0 / L Neutrophils Relative 49.1 46 - 78 % Lymphocytes Relative 38.3 18 - 52 % Monocytes Relative 9.3 3 - 10 % Eosinophils Relative 0.7 0 - 6 % Basophils Relative 1.3 0 - 3 % Neutrophils Absolute 1.5 / L MCH 32.5 26.0 - 34.0 pg MCHC 34.5 30 - 37 g/dL MCV 94.0 82.0 - 108.0 fL Platelets 119 K/ L RBC 3.51(A) 4.50 - 5.90 10^6/ L WBC 3.0 10^3/mL Blood Narrative Resulting Agency Comment [facility] Historical Provider LAB BLOOD ORDERABLES Denisse l Result * (ABNORMAL) Magnesium (12/31/2024 9:41 AM EDT) Only the most recent of33 resultswithin the time period is included. Pathologist [facility] Magnesium 1.2(A) 1.6 - 2.4 mg/dL Plasma Narrative Resulting Agency Comment [facility] Result [facility] Provider LAB BLOOD ORDERABLES Denisse l Result * (ABNORMAL) Renal Function Panel w/o EGFR (12/31/2024 9:41 AM EDT) Only the most recent of13 resultswithin the time period is included. Glucose 91 BUN 18 CO2 26(A) 13 - 22 mmol/L Creatinine 0.90 Potassium 4.2 Sodium 141 Chloride 105 Phosphorus 4.8 2.5 - 4.9 mg/dL Calcium 9.5 EGFR 113 mg/dL Albumin 4.5 3.5 - 5.0 g/dL Blood Narrative Resulting Agency Comment [facility] Result [facility] Provider LAB BLOOD ORDERABLES Denisse l Result * Protime-INR (12/23/2024 9:53 AM EDT) Only the most recent of27 resultswithin the time period is included. Pathologist [facility] INR 0.94 0.9 - 1.1 Protime 10.5 Plasma Result [facility] Harvey Domínguez III, MD LAB BLOOD ORDERABLE S Final Result * Urine culture (12/08/2024 10:43 AM EDT) Only the most recent of3 resultswithin the time period is included. Pathologist [facility] Urine Culture, Comprehensive No growth URINE SPECIMEN / Unknown Result [facility] Historical Provider MICROBIOLOGY - GENERAL OR DERABLES Final Result * Phosphatidylethanol Confirmation, B (11/25/2024 8:42 AM EDT) Only the most recent of3 resultswithin the time period is included. PETH 16:0/18.1 (POPETH) 14 Cutoff: 10 ng/mL 11/28/2024 8:24 AM EDT [facility] Comment: Phosphatidylethanol (PEth) homologues result [...] Cutoff: 10 ng/mL 11/28/2024 8:24 AM EDT [facility] Comment: PEth 16:0/18:2 (PLPEth) Reference ranges are not well established PEth Interpretation Positive. 11/28 8:24 AM EDT [facility] Comment: ADDITIONAL INFORMATION This report is intended for use in clinical monitoring and management of patients. It is not intended for use in employment-related testing. This test was developed and its performance characteristics determined by [facility] in a manner consistent with CLIA requirements. This test has not been cleared or approved by the U.S. Food and Drug Administration. Test Performed by: [facility] [place] [address] [employer] Excavator: Kathy Ortiz Ph.D.; CLIA# [id number] Whole Blood 11/25/2024 8:42 AM EDT 11/28/2024 8:24 AM EDT Narrative [facility] - 11/28/2024 8:24 AM EDT One time lab order to be collected with next set of standing liver transplant labs. Please fax all results to [phone]. Call critical results to [phone]. us Harvey Domínguez III, MD LAB BLOOD ORDERABLE S Final Result [facility] [address] [place] [address], [facility] * Hepatitis B Virus (HBV), PCR, Quant (11/25/2024 8:42 AM EDT) Hep B Viral DNA IU/ML Not Detected IU/mL 11/28/2024 10:09 AM EDT [facility] Comment:Test methodology for HBV DNA quantification is an FDA-approved nucleic acid amplification assay. The lower limit of quantitation (LLOQ) is 10 IU/mL. The linear range of the assay is 10-1,000,000,000 IU/mL. The limit of detection (LoD) for plasma is 2.7 IU/mL. The reference range is Not Detected. log 10 HBV as IU/mL See Note log 10 IU/mL 11/28/2024 10:09 AM EDT [facility] Comment:HBV DNA not detected . Plasma 11/25/2024 8:42 AM EDT 11/25/2024 10:59 AM EDT Narrative [facility] - 11/28/2024 10:09 AM EDT One time lab order to be collected with next set of standing liver transplant labs. UNOS requirement. Please fax all results to [phone]. Call critical results to [phone]. us Harvey Domínguez III, MD LAB BLOOD ORDERABLE S Final Result [facility] [address] * HIV-1 RNA, Quantitative, PCR (11/25/2024 8:42 AM EDT) Pathologist [facility] HIV 1 Copies Not Detected copies/mL 11/26/2024 10:57 AM EDT [facility] Comment:Test methodology for HIV-1 RNA quantification is an FDA-approved nucleic acid amplification assay. The Lower Limit of Quantitation (LLoQ) is 20 copies/mL. The linear range is 20- to 10,000,000 copies/mL. The Limit of Detection (LoD) is 13.2 copies/mL. The reference range is Not Detected. HIV [id number] See Note [id number] /mL 11/26/2024 10:57 AM EDT [facility] Comment:HIV-1 RNA not detect ed. Plasma 11/25/2024 8:42 AM EDT 11/25/2024 10:59 AM EDT [facility] - 11/26/2024 10:57 AM EDT One time lab order to be collected with next set of standing liver transplant labs. UNOS requirement. Please fax all results to [phone]. Call critical results to [phone]. Harvey Domínguez III, MD LAB BLOOD ORDERABLE S Final Result Performing Organization Address [facility]/ZIP Co de Phone Number [facility] [address] * Hepatitis C RNA, Quantitative PCR (11/25/2024 8:42 AM EDT) Backtrace I/O Units Not Detected IU/mL 11/27/2024 11:35 AM EDT [facility] Comment:Test methodology for HCV RNA quantification is an FDA-approved nucleic acid amplification assay. The Lower Limit of Quantitation (LLOQ) is 15 IU/mL. The linear range of the assay is 15-100,000,000 IU/mL. The Limit of Detection (LoD) is 12.0 IU/mL for EDTA plasma. The reference range is Not Detected. IU log10 See Note log 10 IU/mL 11/27/2024 11:35 AM EDT [facility] Comment:HCV RNA not detected . Plasma 11/25/2024 8:42 AM EDT 11/25/2024 10:59 AM EDT [facility] - 11/27/2024 11:35 AM EDT One time lab order to be collected with next set of standing liver transplant labs. UNOS requirement. Please fax all results to [phone]. Call critical results to [phone]. us Harvey Domínguez III, MD LAB BLOOD ORDERABLE S Final Result Performing Organization Address City/[facility]/ZIP Co de Phone Number [facility] [address] [place] [address], [facility] * Differential (11/25/2024 8:42 AM EDT) Only the most recent of5 resultswithin the time period is included. Neutrophils Relative 73.2 40.0 - 80.0 % 11/25/2024 10:25 AM EDT [facility] Lymphocytes Relative 19.2 15.0 - 45.0 % 11/25/2024 10:25 AM EDT [facility] Monocytes Relative 6.3 0.0 - 12.0 % 11/25/2024 10:25 AM EDT [facility] Eosinophils Relative 0.4 0.0 - 8.0 % 11/25/2024 10:25 AM EDT [facility] Basophils Relative 0.9 0.0 - 1.0 % 11/25/2024 10:25 AM EDT [facility] nRBC 0 0 - 0 /100 WBC 11/25/2024 10:25 AM EDT [facility] Neutrophils Absolute 5,929 1,520 - 8,640 /uL 11/25/2024 10:25 AM EDT [facility] Lymphocytes Absolute 1,555 570 - 4,860 /uL 11/25/2024 10:25 AM EDT [facility] Monocytes Absolute 510 0 - 1,296 /uL 11/25/2024 10:25 AM EDT [facility] Eosinophils Absolute 32 0 - 864 /uL 11/25/2024 10:25 AM EDT [facility] Basophils Absolute 73 0 - 108 /uL 11/25/2024 10:25 AM EDT [facility] Whole Blood 11/25/2024 8:42 AM EDT 11/25/2024 9:44 AM EDT Narrative [facility] - 11/25/2024 10:25 AM EDT Standing orders to be drawn: Every Sunday and before 9am and prior to patient taking morning medications. Liver Transplant Fax results to [phone] Call Critical results to [phone] us Harvey Domínguez III, MD LAB BLOOD ORDERABLE S Final Result [facility] [address] [facility] [place] [address], [facility] * (ABNORMAL) CBC (11/25/2024 8:42 AM EDT) Only the most recent of36 resultswithin the time period is included. WBC 8.1 3.8 - 10.8 10E3/uL 11/25/2024 10:25 AM EDT [facility] RBC 3.71(L) 4.20 - 5.80 10E6/uL 11/25/2024 10:25 AM EDT [facility] Hemoglobin 11.7(L) 13.2 - 17.1 g/dL 11/25/2024 10:25 AM EDT [facility] Hematocrit 33.8(L) 38.5 - 50.0 % 11/25/2024 10:25 AM EDT [facility] MCV 91.1 80.0 - 100.0 fL 11/25/2024 10:25 AM EDT [facility] MCH 31.5 27.0 - 33.0 pg 11/25/2024 10:25 AM EDT [facility] MCHC 34.6 32.0 - 36.0 g/dL 11/25/2024 10:25 AM EDT [facility] RDW 20.0(H) 11.0 - 15.0 % 11/25/2024 10:25 AM EDT [facility] Platelets 193 140 - 400 10E3/uL 11/25/2024 10:25 AM EDT [facility] Comment:Slide Reviewed for P LT Clumps. None Seen. MPV 6.9(L) 7.5 - 11.5 fL 11/25/2024 10:25 AM EDT [facility] Whole Blood 11/25/2024 8:42 AM EDT 11/25/2024 9:44 AM EDT us Gerri Peterson MD LAB BLOOD ORDERABLES Final Resu lt [facility] [address] [place] [address], [facility] * (ABNORMAL) Comprehensive metabolic panel (11/25/2024 8:42 AM EDT) Only the most recent of3 resultswithin the time period is included. Sodium 141 133 - 146 mmol/L 11/25/2024 10:20 AM [facility] Potassium 4.3 3.5 - 5.3 mmol/L 11/25/2024 10:20 AM [facility] Chloride 106 98 - 110 mmol/L 11/25/2024 10:20 AM [facility] CO2 23 21 - 33 mmol/L 11/25/2024 10:20 AM [facility] Anion Gap 12 3 - 16 mmol/L 11/25/2024 10:20 AM [facility] BUN 43(H) 7 - 25 mg/dL 11/25/2024 10:20 AM [facility] Creatinine 1.59(H) 0.60 - 1.30 mg/dL 11/25/2024 10:20 AM [facility] Glucose 93 70 - 100 mg/dL 11/25/2024 10:20 AM [facility] Calcium 10.0 8.6 - 10.3 mg/dL 11/25/2024 10:20 AM [facility] Total Bilirubin 0.7 0.0 - 1.5 mg/dL 11/25/2024 10:20 AM [facility] AST 9(L) 13 - 39 U/L 11/25/2024 10:20 AM [facility] ALT 22 7 - 52 U/L 11/25/2024 10:20 AM [facility] Alkaline Phosphatase 198(H) 36 - 125 U/L 11/25/2024 10:20 AM [facility] Total Protein 7.0 6.4 - 8.9 g/dL 11/25/2024 10:20 AM [facility] Albumin 4.5 3.5 - 5.7 g/dL 11/25/2024 10:20 AM [facility] Osmolality, Calculated 303 278 - 305 mOsm/kg 11/25/2024 10:20 AM [facility] EGFR 56 11/25/2024 10:20 AM [facility] Comment:As of 2021, [...] City/[facility]/ZIP Co de Phone Number [facility] [address] [facility] * (ABNORMAL) Post Kidney Transplant Urine Culture (11/11/2024 9:13 AM EDT) Only the most recent of3 resultswithin the time period is included. Culture Result Enterococcus faecium(A) [facility] Comment: <1,000 cfu/mL Identified by MALDI-TOF MS No Further Workup Midstream Urine URINE SPECIMEN / Unknown 11/11/2024 9:13 AM EDT 11/11/2024 10:17 AM EDT Caron Santos CNP MICROBIOLOGY - GENERAL OR DERABLES Final Result Performing Organization Address [facility] Co de Phone Number [facility] [address] [facility] * (ABNORMAL) Renal Function Panel w/EGFR (11/11/2024 9:13 AM EDT) Only the most recent of32 resultswithin the time period is included. Sodium 141 133 - 146 mmol/L 11/11/2024 10:51 AM EDT [facility] Potassium 4.6 3.5 - 5.3 mmol/L 11/11/2024 10:51 AM EDT [facility] Chloride 108 98 - 110 mmol/L 11/11/2024 10:51 AM EDT [facility] CO2 24 21 - 33 mmol/L 11/11/2024 10:51 AM EDT [facility] Anion Gap 9 3 - 16 mmol/L 11/11/2024 10:51 AM EDT [facility] BUN 27(H) 7 - 25 mg/dL 11/11/2024 10:51 AM EDT [facility] Creatinine 1.14 0.60 - 1.30 mg/dL 11/11/2024 10:51 AM EDT [facility] Glucose 97 70 - 100 mg/dL 11/11/2024 10:51 AM EDT [facility] Calcium 8.6 8.6 - 10.3 mg/dL 11/11/2024 10:51 AM EDT [facility] Phosphorus 4.4 2.1 - 4.7 mg/dL 11/11/2024 10:51 AM EDT [facility] Albumin 3.8 3.5 - 5.7 g/dL 11/11/2024 10:51 AM EDT [facility] Osmolality, Calculated 297 278 - 305 mOsm/kg 11/11/2024 10:51 AM EDT [facility] EGFR 83 11/11/2024 10:51 AM EDT [facility] Comment:As of 2021, the estimated [...] AM EDT 11/11/2024 10:19 AM EDT [facility] - 11/11/2024 10:51 AM EDT Standing orders to be drawn: Every Sunday and before 9am and prior to patient taking morning medications. Liver Transplant Fax results to [phone] Call Critical results to [phone] DO NOT REPLACE RENAL PANEL or HEPATIC FUNCTION PANEL w/ CMP, BMP or HEPATIC PROFILE us Harvey Domínguez III, MD LAB BLOOD ORDERABLE S Final Result Performing Organization Address [facility] Co de Phone Number [facility] [address] [facility]. [address] * Protein / creatinine ratio, urine (11/11/2024 9:13 AM EDT) Only the most recent of2 resultswithin the time period is included. Creatinine, Urine 71.40 mg/dL 11/11/2024 10:38 AM EDT [facility] Comment:Reference range not established for this test. Total Protein, Ur 28 mg/dL 11/11/2024 10:38 AM EDT [facility] Comment:Reference range not established for this test. Prot/Creat Ratio, Ur 0.39 ratio 11/11/2024 10:38 AM EDT [facility] Urine 11/11/2024 9:13 AM EDT 11/11/2024 10:12 AM EDT us Caron Santos COKE INSPECTOR URINE ORDERABLES Final Re sult Performing Organization Address [facility] Co de Phone Number [facility] [address] [facility]. [address] * EKG - scan (11/03/2024 9:07 [...] - 100 mg/dL 11/02/2024 5:45 PM EDT [facility] Blood 11/02/2024 5:44 PM EDT 11/02/2024 5:45 PM EDT us Harvey Domínguez III, MD POINT OF CARE TEST ORDERABLES Final Result [facility] [address] * X-ray Portable Abdomen AP view [...] Adrenal gland: No focal nodule seen. Kidneys: [place] kidneys noted with nonobstructing calcifications on the right. Findings of postsurgical changes in the left [place] kidney. Mild right hydronephrosis without an obstructive [...] Adrenal gland: No focal nodule seen. Kidneys: [place] kidneys noted with nonobstructing calcifications on theright. Findings of postsurgical changes in the left [place] kidney. Mildright hydronephrosis without an obstructive course [...] QT: 400 ms QTc: 456 ms P [place]: 49 degrees R [place]: 3 degrees T [place]: 14 degrees Diagnosis Line: NORMAL SINUS RHYTHM ^ NORMAL ECG ^ ^ Confirmed by MD REID JAMES ([id number]) on 11/02/2024 6:56:52 AM Priti Alex CNP ECG ORDERABLES Final Result MUSE * US Duplex Qnv-Bai-Zcobcps Comp (10/31/2024 10:19 AM EDT) Only the [...] EXAM: US ABDOMEN LIMITED EXAM: US DUPLEX [id number] COMPLETE INDICATION: Post-op liver transplant COMPARISON: None [...] visualized secondary to poor acoustic windows. The [place] right kidney measures 11.6 cm in length. [...] EXAM: US ABDOMEN LIMITED EXAM: US DUPLEX [id number] COMPLETE INDICATION: Post-op liver transplant COMPARISON: None [...] well visualized secondary to poor acousticwindows. The [place] right kidney measures 11.6 cm in length. [...] 10/31/2024 10:35 AM EDT us Beata Horner [facility] US ORDERABLES Final R esult * [...] EXAM: US ABDOMEN LIMITED EXAM: US DUPLEX [id number] COMPLETE INDICATION: Post-op liver transplant COMPARISON: None [...] visualized secondary to poor acoustic windows. The [place] right kidney measures 11.6 cm in length. [...] EXAM: US ABDOMEN LIMITED EXAM: US DUPLEX [id number] COMPLETE INDICATION: Post-op liver transplant COMPARISON: None [...] well visualized secondary to poor acousticwindows. The [place] right kidney measures 11.6 cm in length. [...] 10/31/2024 10:35 AM EDT us Beata Horner [employer] IMG US ORDERABLES Final R esult * [...] are within normal limits. Procedure Note Declan Cerad MD - 10/31/2024 EXAM: US RENAL TRANSPLANT [...] 10/31/2024 10:29 AM EDT us Beata Horner [facility] US ORDERABLES Final R esult * Prepare RBC, leukoreduced, 1 Units (10/29/2024 6:16 AM EDT) Only the most recent of7 resultswithin the time period is included. Product Code V1344L46 [facility] Unit Number [id number] [facility] Dispense Status Presumed Transfused_PT [facility] Blood Expiration Date [id number] [facility] Coding System [id number] [facility] Blood Bank Product us Shay Guzmán MD BLOOD BANK PRODUCT O RDERABLES Final Result [facility] * (ABNORMAL) TEG-Bypass/ECMO/Liver HN (Factor function, Platelet/Fibrin Clot Strength w/Clot Breakdown, Heparinase In All Channels) (10/29/2024 5:07 AM EDT) Only the most recent of13 resultswithin the time period is included. Citrated Kaolin Reaction Time (TEGECMOLIVER) 8.9 4.6 - 9.1 minutes 10/29/2024 7:04 AM EDT [facility] Citrated Kaolin W/Heparinase Reaction Time (TEGECMOLIVER) 7.4 4.3 - 8.3 minutes 10/29/2024 7:04 AM EDT [facility] Citrated Kaolin Maximum Amplitude (TEGECMOLIVER) 52.9 52.0 - 69.0 mm 10/29/2024 7:04 AM EDT [facility] Citrated Functional Fibrinogen W/Heparinase Maximum Amplitude(TEGEC MOLIVER) 20.7 15.0 - 34.0 mm 10/29/2024 7:04 AM EDT [facility] Citrated Rapid Teg W/Heparinase Maximum Amplitude (TEGECMOLIVER) 49.7(L) 53.0 - 69.0 mm 10/29/2024 7:04 AM EDT [facility] Citrated Kaolin w/Heparinase Percent Lysis (TEGECMOLIVER) 0.0 0.0 - 3.2 % 10/29/2024 7:04 AM EDT [facility] Whole Blood (Citrate) 10/29/2024 5:07 AM EDT 10/29/2024 5:10 AM EDT Kemar Sahni MD LAB BLOOD ORDERABLES Final Result Performing Organization Address [facility] Co de Phone Number [facility] [address] * Transfuse RBC Transfusion Rate: Per [...] - 2.2 mmol/L 10/28/2024 11:37 AM EDT [facility] Plasma 10/28/2024 11:0 9 AM EDT 10/28/2024 11:15 AM EDT Carlos Marks MD LAB BLOOD ORDERABLES Final Result Performing Organization Address City/[facility] Co de Phone Number [facility] [address] [place] [address], [place] * Prepare Platelets, leukoreduced (10/28/2024 6:15 AM EDT) Only the most recent of5 resultswithin the time period is included. Product Code Z4755O46 [facility] Unit Number [id number] [facility] Dispense Status Presumed Transfused_PT [facility] Blood Expiration Date [facility] Coding System [id number] [facility] Product Code X4312W17 [facility] Unit Number [id number] [facility] Dispense Status Presumed Transfused_PT [facility] Blood Expiration Date [facility] Coding System [id number] [facility] us Attending Provider Unknown BLOOD BANK PRODUCT OR DERABLES Final Result [facility] * Prepare Fresh Frozen Plasma (10/28/2024 6:15 AM EDT) Only the most recent of5 resultswithin the time period is included. Product Code Y1566B32 [facility] Unit Number [id number] [facility] Dispense Status Released from Crossmatch_RE [facility]LL Blood Expiration Date [facility] Coding System VHDU433 [facility] Product Code P6699I74 [facility] Unit Number [id number] [facility] Dispense Status Presumed Transfused_PT HCLL Blood Expiration Date [facility] Coding System [id number] [facility] Product Code K1672Q43 [facility] Unit Number [id number] [facility] Dispense Status Released from Crossmatch_RE [facility]LL Blood Expiration Date [facility] Coding System JPHA008 [facility] Product Code R7678A86 [facility] Unit Number [id number] [facility] Dispense Status Presumed Transfused_PT [facility]LL Blood Expiration Date [facility] Coding System CWJS738 [facility] Product Code V6529Z81 [facility] Unit Number [id number] [facility] Dispense Status Released from Crossmatch_RE [facility]LL Blood Expiration Date [facility] Coding System VFWA943 HCLL us Attending Provider Unknown BLOOD BANK PRODUCT OR DERABLES Final Result Performing Organization Address City/[facility]/ZIP Co de Phone Number [facility] * Prepare Cryoprecipitate, 1 Units (10/28/2024 6:15 AM EDT) Only the most recent of4 resultswithin the time period is included. Product Code E1990A44 [facility] Unit Number [id number] [facility] Dispense Status Presumed Transfused_PT [facility]LL Blood Expiration Date [facility] Coding System [id number] [facility] Product Code Y4853O56 [facility] Unit Number [id number] [facility] Dispense Status Presumed Transfused_PT HCLL Blood Expiration Date HCLL Coding System [id number] [facility] Blood Bank Product John Pina MD BLOOD BANK PRODUCT ORDERABLES F inal Result Performing Organization Address [facility] de Phone Number [facility] * (ABNORMAL) Blood Gas, Arterial, STAT (10/27/2024 2:40 PM EDT) Only the most recent of6 resultswithin the time period is included. O2 Sat, Arterial 98 10/27/2024 2:46 PM EDT [facility] FIO2 RA 10/27/2024 2:46 PM EDT [facility] pH, Arterial 7.37 7.35 - 7.45 10/27/2024 2:46 PM EDT [facility] pCO2, Arterial 35 35 - 45 mm Hg 10/27/2024 2:46 PM EDT [facility] pO2, Arterial 92 80 - 100 mm Hg 10/27/2024 2:46 PM EDT [facility] HCO3, Arterial 21(L) 22 - 26 mmol/L 10/27/2024 2:46 PM EDT [facility] CO2 Content,Arteri al 21(L) 23 - 27 mmol/L 10/27/2024 2:46 PM EDT [facility] Base Excess, Arterial -4.6(L) -2.0 - 3.0 mmol/L 10/27/2024 2:46 PM EDT [facility] %HBO2, Arterial 95.4 95.0 - 98.0 % 10/27/2024 2:46 PM EDT [facility] Carboxyhemoglo bin, Arterial 1.6 % 10/27/2024 2:46 PM EDT [facility] Comment: CARBOXYHEMOGLOBIN (CO) REFERENCE RANGES: Non-Smokers: <2 % Smokers: <8 % TOXIC: >20 % Methemoglobin, Arterial 1.0 0.0 - 1.5 % 10/27/2024 2:46 PM EDT [facility] Reduced hemoglobin, Arterial 2.1 0.0 - 5.0 % 10/27/2024 2:46 PM EDT [facility] Blood, Arterial 10/27/2024 2 :40 PM EDT 10/27/2024 2:44 PM EDT Narrative [facility] - 10/27/2024 2:46 PM EDT Post extubation us John Coulter MD LAB BLOOD ORDERABLES Final R esult [facility] [address] [place] [address], [facility] * CARISA Rhythm Strip - Scan [...] AM EDT John Coulter MD [facility] ORDER PAL Final Result * (ABNORMAL) Katie-Watkins virus VCA IgG Antibody (10/27/2024 8:00 AM EDT) EBV VCA IgG Positive( A) Negative 10/27/2024 11:30 AM EDT [facility] Comment:Presence of detectab le VCA IgG antibodies. 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 EBV IGG NUM 314.00(H) 0.00 - 17.99 U/mL 10/27/2024 11:30 AM EDT [facility] Serum 10/27/2024 8:00 AM EDT 10/27/2024 8:20 AM EDT Kemar Sahni MD LAB BLOOD ORDERABLES Final Result [facility] [address] * Hemoglobin A1c (10/27/2024 8:00 AM EDT) Only the most recent of2 resultswithin the time period is included. Hemoglobin A1C 5.0 4.0 - 5.6 % 10/27/2024 11:12 AM EDT [facility] Comment: Hemoglobin A1c Interpretation Guidelines: [...] Sahni MD LAB BLOOD ORDERABLES Final Result [facility] [address] [facility]. [address] * X-ray Abdomen AP view (10/27/2024 [...] O2Sat (ABGP) 100 10/27/2024 6:17 AM EDT [facility] pH (ABGP) 7.30(L) 7.35 - 7.45 10/27/2024 6:17 AM EDT [facility] PCO2 (ABGP) 41 35 - 45 mm Hg 10/27/2024 6:17 AM EDT [facility] PO2 (ABGP) 192(H) 80 - 100 mm Hg 10/27/2024 6:17 AM EDT [facility] HCO3 (ABGP) 21(L) 22 - 26 mmol/L 10/27/2024 6:17 AM EDT [facility] CO2 Content (ABGP) 22(L) 23 - 27 mmol/L 10/27/2024 6:17 AM EDT [facility] Base Excess (ABGP) -5.7(L) -2.0 - 3.0 mmol/L 10/27/2024 6:17 AM EDT [facility] Sodium (ABGP) 138 136 - 146 mEq/L 10/27/2024 6:17 AM EDT [facility] Potassium (ABGP) 3.3(L) 3.5 - 5.0 mEq/L 10/27/2024 6:17 AM EDT [facility] Comment:In the event of in-v itro hemolysis, potassium results may be falsely elevated. Always interpret lab results in conjunction with clinical findings. If hemolysis is suspected, a serum sample may be collected for repeat assessment of potassium. Calcium, Free (ABGP) 5.28 4.50 - 5.30 mg/dL 10/27/2024 6:17 AM EDT [facility] Glucose (ABGP) 112(H) 70 - 100 mg/dL 10/27/2024 6:17 AM EDT [facility] Comment:There is interferenc e with whole blood glucose results on this method when Hematocrit is <25% or >60%. HCT (ABGP) 20.0(L) 40.0 - 52.0 % 10/27/2024 6:17 AM EDT [facility] HGB (ABGP) 6.5(L) 14.0 - 18.0 g/dL 10/27/2024 6:17 AM EDT [facility] %HBO2 (ABGP) 96.8 95.0 - 98.0 % 10/27/2024 6:17 AM EDT [facility] Carboxyhgb (ABGP) 2.1 % 025 6:17 AM EDT [facility] Comment: CARBOXYHEMOGLOBIN (CO) REFERENCE RANGES: Non-Smokers: <2 % Smokers: <8 % TOXIC: >20 % Methemoglobin (ABGP) 1.0 0.0 - 1.5 % 10/27/2024 6:17 AM EDT [facility] Reduced Hemoglobin (ABGP) 0.2 0.0 - 5.0 % 10/27/2024 6:17 AM EDT [facility] Lactic Acid (ABGP) 0.4(L) 0.5 - 1.6 mmol/L 10/27/2024 6:17 AM EDT [facility] Blood, Arterial 10/27/2024 6 :09 AM EDT 10/27/2024 6:14 AM EDT us Ben Blake MD LAB BLOOD ORDERABLES Final Re sult [facility] [address] [id number], [facility] * Transfuse Fresh Frozen Plasma (10/27/2024 [...] [facility] [address] [place] [address] * Surgical Pathology Exam (10/27/2024 2:38 AM EDT) Only the most recent of2 resultswithin the time period is included. Tissue LEFT KIDNEY STRUCTURE / Unknown 10/27/2024 2:38 AM EDT Narrative [facility] - 10/27/2024 12:00 AM EDT CASE: [id number] PATIENT: BLAIR ANDERSON Clinical History: Transplant kidney with bile duct reconstruction Pre-Operative Diagnosis: Acute kidney injury superimposed on CKD Post-Operative Diagnosis: None Given Specimen(s) Submitted: A. baseline renal biopsy ; B. right lobe liver biopsy; C. left lobe liver biopsy CPT Code(s): 24767 X 1; 30328 X 2; 45418 X 4 Additional Information: FINAL DIAGNOSIS: A. [...] submitted between blue biopsy sponges in cassette [id number] B1-B2. (NAA Mckeon/ns) C. Received in formalin, labeled with the patient's name Blair Anderson and left lobe liver biopsy are two green-georges tissue cores measuring 1.2 and 1.4 cm in length, each with a diameter of 0.1 cm, which are entirely submitted between blue biopsy sponges in cassette [id number] C1-C2. (NAA Mckeon/ns) Microscopic Description: I, the attending pathologist, have personally reviewed all prosector/resident work and pathology slides to determine final diagnosis. Control Materials Reacted Appropriately. Final Diagnosis performed by CLARE FALL MD Pathologist Electronically signed 10/31/2024 01:07:09 PM The Pathologist signing this report is located at [facility], [address] [place] [address], [id number], , CLIA ID: [id number] ADDENDUM: A. Kidney, allograft, baseline, wedge biopsy: [...] Pathologist signing this report is located at [facility], [address] [place] [address], [id number], , CLIA ID: [id number] Kemar Sahni MD PATHOLOGY/CYTOLOGY ORDERABL ES Edited Result - Final Performing Organization Address [facility]/ZIP Co de Phone Number [facility] * Routine Culture plus Stain (10/27/2024 2:15 AM EDT) Only the most recent of2 resultswithin the time period is included. Gram Stain Result No Polymorphonuclear Leukocytes Seen [facility] Gram Stain Result No Organisms Seen; [facility] Culture Result No Growth After 3 Days [facility] Fluid SPECIMEN FROM KIDNEY / Unknown 10/27/2024 2:15 AM EDT 10/27/2024 4:24 AM EDT Narrative [facility] - 10/30/2024 9:26 AM EDT 1) perfusate us Harvey Domínguez III, MD MICROBIOLOGY - GENE RAL ORDERABLES Final Result Performing Organization Address [facility] Co de Phone Number [facility] [address] [facility]. [address] * Fungus culture (10/27/2024 2:15 AM EDT) Culture Result No Fungus Isolated At 4 Weeks [facility] Fluid SPECIMEN FROM KIDNEY / Unknown 10/27/2024 2:15 AM EDT 10/27/2024 4:24 AM EDT Narrative [facility] - 11/24/2024 7:52 AM EDT 1) perfusate us Harvey Domínguez III, MD MICROBIOLOGY - GENE RAL ORDERABLES Final Result Performing Organization Address [facility] Co de Phone Number [facility] [address] [facility]. [address] * Anaerobic culture (10/27/2024 2:15 AM EDT) Culture Result No Anaerobes Isolated in 5 Days [facility] Fluid SPECIMEN FROM KIDNEY / Unknown 10/27/2024 2:15 AM EDT 10/27/2024 4:24 AM EDT Narrative [facility] - 10/31/2024 11:43 AM EDT 1) perfusate us Harvey Domínguez III, MD MICROBIOLOGY - GENE RAL ORDERABLES Final Result [facility] [address] [place] [address], [facility] * (ABNORMAL) TEG-Standard Global Hemostasis (Rapid TEG with Heparin Effect, Contains a Baseline TEG) (10/27/2024 1:51 AM EDT) Only the most recent of2 resultswithin the time period is included. [facility] Citrated Kaolin Reaction Time (TEGHEPARINASE) 10.6(H) 4.6 - 9.1 minutes 10/27/2024 2:44 AM EDT [facility] Citrated Rapid Teg Maximum Amplitude (TEGHEPARINASE) 42.3(L) 52.0 - 70.0 mm 10/27/2024 2:44 AM EDT [facility] Citrated Functional Fibrinogen Maximum Amplitude (TEGHEPARINASE) 15.0 15.0 - 32.0 mm 10/27/2024 2:44 AM EDT [facility] Citrated Kaolin W/Heparinase Reaction Time (TEGHEPARINASE) 10.5(H) 4.3 - 8.3 minutes 10/27/2024 2:44 AM EDT [facility] Citrated Kaolin K-Time (TEGHEPARINASE) 2.9(A) 0.8 - 2.1 minutes 10/27/2024 2:44 AM EDT [facility] Citrated Kaolin Angle (TEGHEPARINASE) 60.4(A) 63.0 - 78.0 degrees 10/27/2024 2:44 AM EDT [facility] Citrated Kaolin Maximum Amplitude (TEGHEPARINASE) 42.9(L) 52.0 - 69.0 mm 10/27/2024 2:44 AM EDT [facility] Citrated Functional Fibrinogen- Fibrinogen Level (TEGHEPARINASE) 273.7(L) 278.0 - 581.0 mg/dL 10/27/2024 2:44 AM EDT [facility] Whole Blood (Citrate) 10/27/2024 1:51 AM EDT 10/27/2024 2:03 AM EDT John Pina MD LAB BLOOD ORDERABLES Final Resu lt [facility] [address] [place] [address], [facility] * Calcium Free, Serum (10/27/2024 12:13 AM EDT) Only the most recent of2 resultswithin the time period is included. Free Calcium, Ser 5.20 4.40 - 5.40 mg/dL 10/27/2024 12:37 AM EDT [facility] Comment:Free calcium levels vary inversely with pH by approximately 5% for each 0.1 unit of pH change. Assay results have been normalized to pH = 7.40. Serum 10/27/2024 12:1 3 AM EDT 10/27/2024 12:29 AM EDT Narrative [facility] - 10/27/2024 12:37 AM EDT This test has been developed and its performance characteristics determined by [facility] which is certified [...] MD LAB BLOOD ORDERABLES Final Resu lt [facility] [address] [address], [facility] * Repeat Crossmatch (Recipient Sample) (10/26/2024 4:42 PM EDT) Repeat Cx - Recipient The request and specimen(s) for this test have been received and transported to the [facility] at [address] [place] [address]. The [facility] will report results directly to the client. 10/26/2024 4:49 PM EDT [facility] Whole Blood 10/26/2024 4:42 PM EDT 10/26/2024 4:49 PM EDT Narrative [facility] - 10/26/2024 4:49 PM EDT To be sent to [facility] for Donor [id number] cross match with Blair Anderson Sveta Mojica MD LAB BLOOD ORDERABLES Final Resu lt Performing Organization Address [facility]/ZIP Co de Phone Number [facility] [address] * (ABNORMAL) Fibrinogen (10/26/2024 6:10 AM EDT) Only the most recent of2 resultswithin the time period is included. Fibrinogen 160(L) 218 - 406 mg/dL 10/26/2024 6:41 AM EDT [facility] Plasma 10/26/2024 6:10 AM EDT 10/26/2024 6:26 AM EDT Sveta Mojica MD LAB BLOOD ORDERABLES Final Resu lt Performing Organization Address [facility] de Phone Number [facility] [address] [facility]. [address] * (ABNORMAL) POC INR (10/26/2024 5:16 AM EDT) Only the most recent of6 resultswithin the time period is included. Prothrombin Time INR, POC 2.4(H) 0.8 - 1.4 10/27/2024 6:51 AM EDT [facility] Comment: Test results may vary [...] TEST ORDERABLES Final Result Performing Organization Address [facility]/ZIP Co de Phone Number [facility] [address] [facility]. [address] * POC Lactate (10/26/2024 5:14 AM EDT) Only the most recent of6 resultswithin the time period is included. POC Lactate 1.76 0.50 - 2.20 mmol/L 10/26/2024 5:31 AM EDT [facility] Blood, Arterial 10/26/2024 5 :14 AM EDT 10/26/2024 5:31 AM EDT us Harvey Domínguez III, MD POINT OF CARE TEST ORDERABLES Final Result Performing Organization Address City/[facility]/ZIP Co de Phone Number [facility] [address] [facility]. [address] * POC TCO2 (10/26/2024 5:14 AM EDT) Only the most recent of6 resultswithin the time period is included. POC TCO2, Arterial 23 23 - 27 mmol/L 10/26/2024 5:31 AM EDT [facility] Blood, Arterial 10/26/2024 5 :14 AM EDT 10/26/2024 5:31 AM EDT us Harvey Domínguez III, MD POINT OF CARE TEST ORDERABLES Final Result Performing Organization Address City/[facility]/ZIP Co de Phone Number [facility] [address] [facility]. [address] * POC Sodium (10/26/2024 5:14 AM EDT) Only the most recent of6 resultswithin the time period is included. POC Sodium 138 136 - 146 mmol/L 10/26/2024 5:31 AM EDT [facility] Blood, Arterial 10/26/2024 5 :14 AM EDT 10/26/2024 5:31 AM EDT us Harvey Domínguez III, MD POINT OF CARE TEST ORDERABLES Final Result Performing Organization Address [facility] Co de Phone Number [facility] [address] [facility]. [address] * (ABNORMAL) POC Potassium (10/26/2024 5:14 AM EDT) Only the most recent of6 resultswithin the time period is included. POC Potassium 2.8(LL) 3.5 - 5.3 mmol/L 10/26/2024 5:31 AM EDT [facility] Blood, Arterial 10/26/2024 5 :14 AM EDT 10/26/2024 5:31 AM EDT Harvey Domínguez III, MD POINT OF CARE TEST ORDERABLES Final Result Performing Organization Address [facility] Co de Phone Number [facility] [address] [facility]. [address] * (ABNORMAL) POC PO2 (10/26/2024 5:14 AM EDT) Only the most recent of6 resultswithin the time period is included. POC pO2, Arterial 133(H) 80 - 100 mm Hg 10/26/2024 5:31 AM EDT [facility] Blood, Arterial 10/26/2024 5 :14 AM EDT 10/26/2024 5:31 AM EDT Harvey Domínguez III, MD POINT OF CARE TEST ORDERABLES Final Result Performing Organization Address [facility] Co de Phone Number [facility] [address] [facility]. [address] * POC PCO2 (10/26/2024 5:14 AM EDT) Only the most recent of6 resultswithin the time period is included. POC pCO2, Arterial 45 35 - 45 mm Hg 10/26/2024 5:31 AM EDT [facility] Blood, Arterial 10/26/2024 5 :14 AM EDT 10/26/2024 5:31 AM EDT Harvey Domínguez III, MD POINT OF CARE TEST ORDERABLES Final Result Performing Organization Address City/[facility] Co de Phone Number [facility] [address] * (ABNORMAL) POC O2 SAT (10/26/2024 5:14 AM EDT) Only the most recent of6 resultswithin the time period is included. POC O2 Saturation, Arterial 99(H) 95 - 98 % 10/26/2024 5:31 AM EDT [facility] Blood, Arterial 10/26/2024 5 :14 AM EDT 10/26/2024 5:31 AM EDT us Harvey Domínguez III, MD POINT OF CARE TEST ORDERABLES Final Result Performing Organization Address [facility] Co de Phone Number [facility] [address] [facility]. [address] * POC HCO3 (10/26/2024 5:14 AM EDT) Only the most recent of6 resultswithin the time period is included. POC HCO3, Arterial 22 22 - 26 mmol/L 10/26/2024 5:31 AM EDT [facility] Blood, Arterial 10/26/2024 5 :14 AM EDT 10/26/2024 5:31 AM EDT Harvey Domínguez III, MD POINT OF CARE TEST ORDERABLES Final Result Performing Organization Address City/[facility] Co de Phone Number [facility] [address] * POC Chloride (10/26/2024 5:14 AM EDT) Only the most recent of6 resultswithin the time period is included. POC Chloride 104 98 - 110 mmol/L 10/26/2024 5:31 AM EDT [facility] Blood, Arterial 10/26/2024 5 :14 AM EDT 10/26/2024 5:31 AM EDT us Harvey Domínguez III, MD POINT OF CARE TEST ORDERABLES Final Result [facility] [address] * (ABNORMAL) POC Base Excess (10/26/2024 5:14 AM EDT) Only the most recent of6 resultswithin the time period is included. POC Base Excess, Arterial -5(L) -2 - 3 mmol/L 10/26/2024 5:31 AM EDT [facility] Blood, Arterial 10/26/2024 5 :14 AM EDT 10/26/2024 5:31 AM EDT us Harvey Domínguez III, MD POINT OF CARE TEST ORDERABLES Final Result Performing Organization Address City/[facility]/ZIP Co de Phone Number [facility] [address] [facility] * POC Anion Gap (10/26/2024 5:14 AM EDT) Only the most recent of6 resultswithin the time period is included. POC Anion Gap, Arterial 12 3 - 16 mmol/L 10/26/2024 5:31 AM EDT [facility] Blood, Arterial 10/26/2024 5 :14 AM EDT 10/26/2024 5:31 AM EDT us Harvey Domínguez III, MD POINT OF CARE TEST ORDERABLES Final Result [facility] [address] [facility] * POC Sample Type (10/26/2024 5:14 AM EDT) Only the most recent of6 resultswithin the time period is included. POC Sample Type Arterial 10/26/2024 5:31 AM EDT [facility] Blood, Arterial 10/26/2024 5 :14 AM EDT 10/26/2024 5:31 AM EDT Harvey Domínguez III, MD POINT OF CARE TEST ORDERABLES Final Result [facility] [address] [facility]. [address] * (ABNORMAL) POC pH (10/26/2024 5:14 AM EDT) Only the most recent of6 resultswithin the time period is included. POC pH, Arterial 7.29(L) 7.35 - 7.45 10/26/2024 5:31 AM EDT [facility] Blood, Arterial 10/26/2024 5 :14 AM EDT 10/26/2024 5:31 AM EDT Harvey Domínguez III, MD POINT OF CARE TEST ORDERABLES Final Result Performing Organization Address City/[facility]/ZIP Co de Phone Number [facility] [address] [facility]. [address] * (ABNORMAL) POC hematocrit (10/26/2024 5:14 AM EDT) Only the most recent of6 resultswithin the time period is included. POC Hematocrit 28.0(L) 40 - 52 % 10/26/2024 5:31 AM EDT [facility] Blood, Arterial 10/26/2024 5 :14 AM EDT 10/26/2024 5:31 AM EDT Harvey Domínguez III, MD POINT OF CARE TEST ORDERABLES Final Result [facility] [address] * (ABNORMAL) POC Ionized Calcium (10/26/2024 5:14 AM EDT) Only the most recent of6 resultswithin the time period is included. POC Ionized Calcium 5.50(H) 4.50 - 5.30 mg/dL 10/26/2024 5:31 AM EDT [facility] Blood, Arterial 10/26/2024 5 :14 AM EDT 10/26/2024 5:31 AM EDT us Harvey Domínguez III, MD POINT OF CARE TEST ORDERABLES Final Result Performing Organization Address [facility] Co de Phone Number [facility] [address] [place] [address]. [address] * (ABNORMAL) POC Glucose (10/26/2024 5:14 AM EDT) Only the most recent of6 resultswithin the time period is included. POC Glucose, Arterial 183(H) 70 - 100 mg/dL 10/26/2024 5:31 AM EDT [facility] Blood, Arterial 10/26/2024 5 :14 AM EDT 10/26/2024 5:31 AM EDT us Harvey Domínguez III, MD POINT OF CARE TEST ORDERABLES Final Result Performing Organization Address [facility] de Phone Number [facility] [address] [place] [address]. [address] * (ABNORMAL) POC Hemoglobin (10/26/2024 5:14 AM EDT) Only the most recent of6 resultswithin the time period is included. POC Hemoglobin 9.5(L) 14.0 - 18.0 g/dL 10/26/2024 5:31 AM EDT [facility] Blood, Arterial 10/26/2024 5 :14 AM EDT 10/26/2024 5:31 AM EDT us Harvey Domínguez III, MD POINT OF CARE TEST ORDERABLES Final Result Performing Organization Address City/[facility]/ZIP Co de Phone Number [facility] [address] * (ABNORMAL) TEG-Global With Lysis (Baseline TEG with LY30, Will NOT Show Heparin Effect) (53:31 AM EDT) [facility] Signature Citrated Kaolin Reaction Time (TEGLYSIS) 6.8 4.6 - 9.1 minutes 10/26/2024 5:02 AM EDT [facility] Citrated Rapid Teg Maximum Amplitude (TEGLYSIS) <40.0(L) 52.0 - 70.0 mm 10/26/2024 5:02 AM EDT [facility] Citrated Functional Fibrinogen Maximum Amplitude (TEGLYSIS) <4.0(L) 15.0 - 32.0 mm 10/26/2024 5:02 AM EDT [facility] Citrated Kaolin Percent Lysis (TEGLYSIS) 1.4 0.0 - 2.6 % 10/26/2024 5:02 AM EDT [facility] Whole Blood (Citrate) 10/26/2024 3:31 AM EDT 10/26/2024 3:40 AM EDT us Eber Quinones MD LAB BLOOD ORDERABLES Fin al Result Performing Organization Address [facility] Co de Phone Number [facility] [address] * CENTRAL LINE SINGLE LUMEN PERFORMABLE (10/25/2024 11:13 PM EDT) Narrative Ben Blake MD - 10/25/2024 11:13 PM EDT Ben Blake MD 10/26/2024 7:45 PM [place] Emily Cath Date/Time: 10/25/2024 11:13 PM Performed [...] + IgM) Nonreactive 10/25/2024 11:13 PM EDT [facility] Serum 10/25/2024 10:1 7 PM EDT 10/25/2024 10:17 PM EDT Narrative [facility] - 10/25/2024 11:13 PM EDT HAV antibodies not detected us Aysha Gill MD LAB BLOOD ORDERABLES F inal Result [facility] [address] [place] [address], [facility] * Iron Studies (Iron + TIBC) (10/25/2024 10:17 PM EDT) Only the most recent of2 resultswithin the time period is included. Iron 128 50 - 212 ug/dL 10/25/2024 10:44 PM EDT [facility] % Iron Saturation SEE COMMENT 15.0 - 55.0 % 10/25/2024 10:44 PM EDT [facility] Comment:Unable to calculate result because contributing result outside reportable range.. TIBC SEE COMMENT 261 - 462 ug/dL 10/25/2024 10:44 PM EDT [facility] Comment:Unable to calculate result because contributing result outside reportable range.. Serum 10/25/2024 10:1 7 PM EDT 10/25/2024 10:17 PM EDT Aysha Gill MD LAB BLOOD ORDERABLES F inal Result Performing Organization Address [facility]/ZIP Co de Phone Number [facility] [address] [facility]. [address] * Hepatitis B Core Antibody (10/25/2024 10:17 PM EDT) Hep B Core Total Ab Nonreactive Nonreactive 10/25/2024 11:07 PM EDT [facility] Comment:Health Department no tified in accordance with reportable infectious disease guidelines. Serum 10/25/2024 10:1 7 PM EDT 10/25/2024 10:17 PM EDT Narrative [facility] - 10/25/2024 11:07 PM EDT A nonreactive final interpretation indicates that anti-HBc antibodies were not detected in the sample; it is possible that the individual is not infected with HBV. us Aysha Gill MD LAB BLOOD ORDERABLES F inal Result Performing Organization Address City/[facility]/ZIP Co de Phone Number [facility] [address] [facility]. [address] * Hepatitis C Antibody (10/25/2024 10:17 PM EDT) Only the most recent of3 resultswithin the time period is included. HCV Ab Nonreactive Nonreactive 10/25/2024 11:16 PM EDT [facility] Comment:Health Department no tified in accordance with reportable infectious disease guidelines. Serum 10/25/2024 10:1 7 PM EDT 10/25/2024 10:17 PM EDT Narrative [facility] - 10/25/2024 11:16 PM EDT Antibodies to HCV not detected; does not exclude the possibility of exposure to HCV. us Aysha Gill MD LAB BLOOD ORDERABLES F inal Result Performing Organization Address City/[facility]/ZIP Co de Phone Number [facility] [address] [facility]. [address] * HIV 1+2 Antibody/Antigen with Reflex (10/25/2024 10:17 PM EDT) Only the most recent of2 resultswithin the time period is included. HIV 1+2 AB/AGN Nonreactive Nonreactive 10/25/2024 11:03 PM EDT [facility] Serum 10/25/2024 10:1 7 PM EDT 10/25/2024 10:16 PM EDT Narrative [facility] - 10/25/2024 11:03 PM EDT \HIVRNR us Aysha Gill MD LAB BLOOD ORDERABLES F inal Result Performing Organization Address [facility] Co de Phone Number [facility] [address] [facility]. [address] * (ABNORMAL) Hepatitis B Surface Antibody, Quantitati (10/25/2024 10:17 PM EDT) Only the most recent of3 resultswithin the time period is included. HBSAB NUMBER 10.70(H) 0.00 - 9.99 mIU/mL 10/25/2024 11:52 PM EDT [facility] Hep B S Ab Equivocal (A) Nonreactive 10/25/2024 11:52 PM EDT [facility] Serum 10/25/2024 10:1 7 PM EDT 10/25/2024 10:17 PM EDT Aysha Gill MD LAB BLOOD ORDERABLES F inal Result Performing Organization Address City/[facility]/ZIP Co de Phone Number [facility] [address] [facility]. [address] * Hepatitis B surface antigen (10/25/2024 10:17 PM EDT) Only the most recent of3 resultswithin the time period is included. Hep B Surface Ag Nonreactive Nonreactive 10/25/2024 11:12 PM EDT [facility] Comment:Health Department no tified in accordance with reportable infectious disease guidelines. Serum 10/25/2024 10:1 7 PM EDT 10/25/2024 10:17 PM EDT Narrative [facility] - 10/25/2024 11:12 PM EDT Specimen is considered negative for HBsAg. Aysha Gill MD LAB BLOOD ORDERABLES F inal Result Performing Organization Address [facility] Co de Phone Number [facility] [address] [facility]. [address] * (ABNORMAL) APTT, NO ANTICOAGULANT (10/25/2024 10:17 PM EDT) aPTT 41.7(H) 25.5 - 35.0 seconds 10/25/2024 10:36 PM EDT [facility] Plasma 10/25/2024 10:1 7 PM EDT 10/25/2024 10:17 PM EDT Aysha Gill MD LAB BLOOD ORDERABLES F inal Result [facility] [address] [facility]. [address] * PTH (10/25/2024 10:17 PM EDT) PTH 36.0 12.0 - 88.0 pg/mL 10/25/2024 11:01 PM EDT [facility] Serum 10/25/2024 10:1 7 PM EDT 10/25/2024 10:17 PM EDT us Aysha Gill MD LAB BLOOD ORDERABLES F inal Result Performing Organization Address City/[facility]/ZIP Co de Phone Number [facility] [address] [facility]. [address] * (ABNORMAL) Ferritin (10/25/2024 10:17 PM EDT) Only the most recent of2 resultswithin the time period is included. Ferritin 623.2(H) 23.9 - 336.2 ng/mL 10/25/2024 11:02 PM EDT [facility] Serum 10/25/2024 10:1 7 PM EDT 10/25/2024 10:17 PM EDT Aysha Gill MD LAB BLOOD ORDERABLES F inal Result Performing Organization Address [facility] Co de Phone Number [facility] [address] [facility]. [address] * (ABNORMAL) Venous Blood Gas, Line/Syringe (10/25/2024 10:00 PM EDT) Only the most recent of3 resultswithin the time period is included. PH-Line Draw 7.38 7.32 - 7.42 10/25/2024 10:08 PM EDT [facility] PCO2-Line Draw 33(L) 41 - 51 mm Hg 10/25/2024 10:08 PM EDT [facility] PO2-Line Draw 33 25 - 40 mm Hg 10/25/2024 10:08 PM EDT [facility] HCO3-Line Draw 20(L) 24 - 28 mmol/L 10/25/2024 10:08 PM EDT [facility] CO2 Content-Line Draw 21(L) 25 - 29 mmol/L 10/25/2024 10:08 PM EDT [facility] Base Excess-Line Draw -5.0(L) -2.0 - 3.0 mmol/L 10/25/2024 10:08 PM EDT [facility] %HBO2-Line Draw 53.8 40.0 - 70.0 % 10/25/2024 10:08 PM EDT [facility] Carboxyhgb-Ludivina e Draw 1.9 % 10/25/2024 10:08 PM EDT [facility] Comment: CARBOXYHEMOGLOBIN (CO) REFERENCE RANGES: Non-Smokers: <2 % Smokers: <8 % TOXIC: >20 % Methemoglobin- Line Draw 0.2 0.0 - 1.5 % 10/25/2024 10:08 PM EDT [facility] Reduced Hemoglobin-Ludivina e Draw 44.1(H) 0.0 - 5.0 % 10/25/2024 10:08 PM EDT [facility] Venous, Line Draw 10/25/2024 10:00 PM EDT 10/25/2024 10:04 PM EDT Aysha Gill MD LAB BLOOD ORDERABLES F inal Result Performing Organization Address [facility] de Phone Number [address] * Donor Specific Antibody (DSA) (10/25/2024 10:00 PM EDT) AntiDonor Antibodies The request and specimen(s) for this test have been received and transported to the [facility] at [address] [place] [address]. The [facility] will report results directly to the client. 10/25/2024 10:20 PM EDT [facility] Comment:Testing performed by [facility], [address] [place] [address]. The [facility] report has been forwarded to the appropriate ordering location. Please refer to this report for patient results. Serum 10/25/2024 10:0 0 PM EDT 10/25/2024 10:20 PM EDT us Aysha Gill MD LAB BLOOD ORDERABLES F inal Result Performing Organization Address [facility] Co de Phone Number [address] * Hepatitis C RNA, Quant Reflex to Genotyp (10/25/2024 8:18 PM EDT) Pathologist [facility] Units Not Detected IU/mL 10/27/2024 11:03 AM EDT [facility] Comment:Test methodology for HCV RNA quantification is an FDA-approved nucleic acid amplification assay. The Lower Limit of Quantitation (LLOQ) is 15 IU/mL. The linear range of the assay is 15-100,000,000 IU/mL. The Limit of Detection (LoD) is 12.0 IU/mL for EDTA plasma. The reference range is Not Detected. IU log10 See Note log 10 IU/mL 10/27/2024 11:03 AM EDT [facility] Comment:HCV RNA not detected . Plasma 10/25/2024 8:18 PM EDT 10/25/2024 10:27 PM EDT Aysha Gill MD LAB BLOOD ORDERABLES F inal Result Performing Organization Address [facility] Co de Phone Number [facility] [address] * Toxoplasma gondii antibody, IgG (10/25/2024 8:18 PM EDT) Only the most recent of2 resultswithin the time period is included. [facility] Toxoplasma Gondii IgG <3.0 0.0 - 7.1 IU/mL 10/27/2024 7:55 AM EDT [facility] Comment: Negative <7.2 Equivocal 7.2 - 8.7 Positive >8.7 Serum 10/25/2024 8:18 PM EDT 10/27/2024 8:06 AM EDT Narrative [facility] - 10/27/2024 8:06 AM EDT PERFORMED AT: [facility] [id number] MANIFEST/ORDER ORGANIZER PRINT ORDERS: Bassam Khalil, PhD PHONE: [phone] Aysha Gill MD LAB BLOOD ORDERABLES F inal Result Performing Organization Address [facility] Co de Phone Number [facility] [address] [place], [place] [address]. [address] * ABO/Rh (10/25/2024 7:46 PM EDT) Only the most recent of5 resultswithin the time period is included. ABO Grouping O 10/25/2024 10:23 PM EDT [facility] Rh Type Positive 10/25/2024 10:23 PM EDT [facility] Blood 10/25/2024 7:46 PM EDT 10/25/2024 9:54 PM EDT Ben Blake MD BLOOD BANK TEST ORDERABLES Fi nal Result [facility] [address] [place] [facility]. [address] * Antibody Screen (10/25/2024 7:46 PM EDT) Only the most recent of3 resultswithin the time period is included. Antibody Screen Negative 10/25/2024 10:41 PM EDT [facility] Blood 10/25/2024 7:46 PM EDT 10/25/2024 9:54 PM EDT Narrative [facility] - 10/25/2024 10:44 PM EDT Testing performed by [facility] Transfusion Service Ben Blake MD BLOOD BANK TEST ORDERABLES Fi nal Result Performing Organization Address City/[facility]/ZIP Co de Phone Number [facility] [address] [facility]. [address] * Hox - HLA Antibody-Detailed Report (10/22/2024 12:32 PM EDT) 10/22/2024 12:3 2 PM EDT Abdulkadir Gaspar MD LAB BLOOD ORDERABLES Final Resul t [facility] [address] [place] [address] * HOX - HLA CROSSMATCH + Detailed Antibody (10/20/2024 5:04 PM EDT) 10/20/2024 5:04 PM EDT Abdulkadir Gaspar MD LAB BLOOD ORDERABLES Final Resul t Performing Organization Address [facility] Co de Phone Number [facility] [address] [facility] [place] [address] * Hox - ABO Typing Report (10/20/2024 5:03 PM EDT) 10/20/2024 5:03 PM EDT Abdulkadir Gaspar MD LAB BLOOD ORDERABLES Final Resul t Performing Organization Address [facility] de Phone Number [facility] [address] [place] [address] * X-ray Comparison Images (10/20/2024 9:10 AM EDT) Only the most recent of7 resultswithin the time period is included. Narrative EXTERNAL - 10/20/2024 9:10 AM EDT Images associated with this accession number were presented to us for comparison to an examination performed here. Provider Not In System IMG DIAGNOSTIC IMAGING OR DERABLES Final Result Performing Organization Address [facility] de Phone Number EXTERNAL * PRA-HLA Ab Screen (Cytotoxic) (10/15/2024 6:08 AM EDT) Pathologist [facility] The request and specimen(s) for this test have been received and transported to the [facility] at [address] [place] [address]. The [facility] will report results directly to the client. 10/15/2024 6:42 AM EDT [facility] Comment:The request and spec imen(s) for this test have been received and transported to the [facility] [place] at [address] [place] [address]. The [facility] will report results directly to the client. Serum 10/15/2024 6:08 AM EDT 10/15/2024 6:42 AM EDT Cosmo Pacheco MD LAB BLOOD ORDERABLES Final Resul t [facility] [address] [facility] [place] [address], [facility] * LEFT HEART CATH (10/14/2024 2:09 PM EDT) 10/14/2024 11:4 7 AM EDT Narrative [facility] - 10/14/2024 9:27 PM EDT *[facility]* Cardiac Gm [address] [place], [place] [address] CATHETERIZATION LAB STUDY Patient: Blair Anderson Age: [...] manner. 3. Right radial artery access. A 3On75ir Glidesheath - Slender - .021 sheath was [...] + !LV pressure s/d, ed !112/, 22, dP/pm=3995kl Hg/s! + + + !Aortic pressure s/d (m)!106/58 (75) ! + + + ATTESTATION: Dr. Matta was present for the entire procedure. Dr. Jay Quan was the initial author of this report. Prepared and electronically signed by Irving Matta MD [id number] Procedure Note Irving Matta MD - 10/14/2024 *[facility]* Cardiac Gm [address] [place] [address] CATHETERIZATION LAB STUDY Patient: Blair Anderson Age: [...] manner. 3. Right radial artery access. A 3Qi79tx Glidesheath - Slender - .021sheath was advanced [...] complications. Contrast: Omnipaque 350 25ml (total dose). Ajbdmitpw025 125ml (wasted). Radiation: Fluoroscopy time: 15min. Total [...] + !LV pressure s/d, ed !112, 22, dP/av=2848gu Hg/s! + + + !Aortic pressure s/d (m)!106/58 (75) ! + + + ATTESTATION: Dr. Matta was present for the entire procedure. Dr. Jay Quan wasthe initial author of this report. Prepared and electronically signed by Irving Matta MD [id number] [place] [id number] Final Result [facility] * Cardiac Cath Documents [...] - 90 ug/dL 10/13/2024 7:16 AM EDT [facility] Comment: HEMOLYSIS EVIDENT. RESULTS MAY BE INFLUENCED. Critical Result [id number] Called to and read back by: KEY MELO RN at: 10/13/2024 07:15:55 by:NISREEN Plasma 10/13/2024 5:35 AM EDT 10/13/2024 6:19 AM EDT Ellis Mays DO LAB BLOOD ORDERABLES Final Resul t Performing Organization Address City/[facility]/ZIP Co de Phone Number [facility] [address] * Vancomycin, random (10/11/2024 3:02 AM EDT) Only the most recent of5 resultswithin the time period is included. Vancomycin Random 13.4 ug/mL 10/11/2024 3:37 AM EDT [facility] Comment:Reference range not established for this test. Plasma 10/11/2024 3:02 AM EDT 10/11/2024 3:08 AM EDT us Jodi FreireD LAB BLOOD ORDERABLES Final Result Performing Organization Address [facility] Co de Phone Number [facility] [address] [facility] * IR Paracentesis incl imaging guide [...] therapeutic paracentesis. Bakari Wahl CNP, Assistant Corporate Secretary Procedure and Findings: The procedure was performed [...] Using ultrasound guidance, a 10 cm, 5-F Commtimizeeh Centesis catheter was placed into the right [...] andtherapeutic paracentesis. Bakari Wahl CNP, Assistant Corporate Secretary Procedure and Findings: The procedure was performed [...] Using ultrasound guidance, a 10 cm, 5-F Commtimizeeh Centesis catheter was placedinto the right lower [...] Culture Result No Growth After 5 Days [facility] Fluid ABDOMEN / Unknown 10/10/2024 1:51 PM EDT 10/10/2024 3:56 PM EDT us Gerri Peterson MD MICROBIOLOGY - GENERAL ORDERABL ES Final Result [facility] [address] * (ABNORMAL) Body fluid cell count (10/10/2024 1:51 PM EDT) Color, Fluid Yellow(A) Colorless, Pale Yellow 10/10/2024 5:29 PM EDT [facility] Clarity, Fluid Clear 10/10/2024 5:29 PM EDT [facility] Neutrophil %, Fluid 9 % 10/10/2024 5:29 PM EDT [facility] Lymphocytes %, Fluid 13 % 10/10/2024 5:29 PM EDT [facility] Mesothelial %, Fluid 6 % 10/10/2024 5:29 PM EDT [facility] Macrophage %, Fluid 72 % 10/10/2024 5:29 PM EDT [facility] RBC, Fluid 2,662 /uL 10/10/2024 4:41 PM EDT [facility] Total Nucleated Cells, Fluid 89 /uL 10/10/2024 4:41 PM EDT [facility] Comment:Total Nucleated Cell s represent WBCs and other nucleated cells in the fluid such as lining cells. Ascitic Fluid ABDOMEN / Unknown 1:51 PM EDT 10/10/2024 3:56 PM EDT us Gerri Peterson MD BODY FLUIDS AND STOOLS ORDERABL ES Final Result [facility] [address] * UPPER GI ENDOSCOPY (10/10/2024 11:48 AM EDT) 10/10/2024 11:4 8 AM EDT Narrative [facility] - 10/10/2024 12:34 PM EDT [id number] Procedure Date: 10/10/2024 11:48 AM Patient Name: Blair Anderson Date of : 1985 Admit Type: Inpatient Age: 39 Gender: Male Note Status: Finalized Attending MD: Lino Soto MD, [id number] Procedure: Upper GI endoscopy Indications: Gastroesopahgeal variceal [...] verified by the physician, the nurse, the computer information systems instructor and the gis technician in the pre-procedure area in the [...] to hypotension Procedure Code(s): --- Professional --- 04161, GC, Esophagogastroduodenoscopy, flexible, transoral; diagnostic, including collection of specimen(s) by brushing or washing, when performed (separate procedure) Diagnosis Code(s): --- Professional --- I85.00, Esophageal varices without bleeding K76.6, Portal hypertension K31.89, Other diseases of stomach and duodenum CPT copyright 2022 [employer]. All rights reserved. The codes documented in this report are preliminary and upon circuit breaker mechanic review may be revised to meet current [...] In: 12:10:16 PM Scope Out: 12:17:[address] [place] [address], [address] us Provider Not In System PROCEDURE/MINOR SURGICAL ORDERABLES Final Result [facility] * ECHO STRESS W/ CONTRAST (10/09/2024 4:37 PM EDT) Anatomical Region Laterality Modality Chest Ultrasound 10/09/2024 2:40 PM EDT Narrative 10/09/2024 6:45 PM EDT * [facility]* [address] [place] [id number] Stress Echocardiogram Patient: Blair Anderson Room: 8142 Height: 76in MR Number: [id number] : 1985 Weight: 262lb Account: [id number] Gender: M BP: 125 / 77 Study Date: 10/09/2024 Age: 39 BSA: 2.48m^2 Referring physician: Gerri Peterson Interpreting physician: Tonya Henriquez MD FELLOW Lisa Jha MD PERFORMING Tonya Henriquez MD LEAD CUSTODIAN [employer] ORDERING Gerri Peterson REFERRING Gerri [...] was augmented by the addition of hand movie machine operator and leg lifts. The infusion [...] at baseline or with provocation, shows no ywzqo-so-yjux atrial level shunt. - Pulmonary arteries: Systolic [...] at baseline or with provocation, shows no wtdbu-ou-uxak atrial level shunt. Pulmonary artery: - Systolic [...] at baseline or with provocation, shows no kirpc-ou-nssz atrial level shunt. Pericardium: - There is [...] peak heart rate and blood pressure was 82686ef Hg/min. Stress testing did not produce any [...] Reviewed and confirmed by Tonya Henriquez MD [id number] Procedure Note Tonya Henriquez MD - 10/09/2024 * [facility]* [address] [place] [id number] Stress Echocardiogram Patient: Blair Anderson Room: 8142 Height: 76in MR Number: [id number] : 1985 Weight: 262lb Account: [id number] Gender: M BP: 125 / 77 Study Date: 10/09/2024 Age: 39 BSA: 2.48m^2 Referring physician: Gerri Peterson Interpreting physician: Tonya Henriquez MD FELLOW Lisa Jha MD PERFORMING Tonya Henriquez MD LEAD CUSTODIAN [employer] Askanda REFERRING Gerri Peterson Sharice N ADMITTING Gómez Blanchard Procedure:STRESS ECHO - PHARMACOLOGIC Order: Indications: Pre-Operative Clearance (Z01.818). PMH: EtOH Use Disorder. Risk factors: Hypertension. Dyslipidemia. Study data: Height: 76in. 193cm. Weight: 262lb. 118.8kg. The previousstudy was not available, so comparison was made to the report of 07/15/2024. Study status: Routine. Procedure: [facility] A baseline ECG was recorded. Intravenous [...] was augmented by the addition of hand movie machine operator and leg lifts. The infusion [...] at baseline or with provocation, shows no ahqbl-zq-yrpx atrial level shunt. - Pulmonary arteries: Systolic [...] study at baseline or with provocation, showsno ctkdu-ic-vdve atrial level shunt. Pulmonary artery: - Systolic [...] at baseline or with provocation, shows no yanqt-jn-mmxr atrial level shunt. Pericardium: - There is [...] heart rate). The maximal predicted heart rate [id number]. The target heart rate was 152bpm. The target heart rate was achieved.The heart rate response to stress is normal. There is a normal resting blood pressure with an appropriate response to stress. The rate-pressureproduct for the peak heart rate and blood pressure was [id number] Hg/min. Stress testing did not produce any [...] Reviewed and confirmed by Tonya Henriquez MD [id number] us Gerri Peterson MD CV ECHO ORDERABLES Final Result * Renal Tx Recipient (10/09/2024 4:59 AM EDT) Pathologist [facility] Renal Transplant Recipient The request and specimen(s) for this test have been received and transported to the [facility] at [address] [place] [address]. The [facility] will report results directly to the client. 10/09/2024 7:26 AM EDT [facility] Blood 10/09/2024 4:59 AM EDT 10/09/2024 7:26 AM EDT us Aaron Gonzalez MD LAB BLOOD ORDERABLES Final Resu lt [facility] [address] [place] [address], [facility] * (ABNORMAL) MMR(IgG) Panel (Measles, Mumps, Rubella) (10/08/2024 10:25 AM EDT) Only the most recent of2 resultswithin the time period is included. Pathologist [facility] Mumps IgG Positive 10/08/2024 11:39 AM EDT [facility] MUMPS IGG NUM 99.00(H) 0.0 - 8.9 U/mL 10/08/2024 11:39 AM EDT [facility] Rubella IgG Scr Positive 10/08/2024 11:40 AM EDT [facility] RUB NUM 4.15(H) 0.00 - 0.89 INDEX 10/08/2024 11:40 AM EDT [facility] Rubeola Ab, IgG Positive 10/08/2024 11:39 AM EDT [facility] RUB IGG NUM 273.00(H) 0.00 - 13.40 U/mL 10/08/2024 11:39 AM EDT [facility] Serum 10/08/2024 10:2 5 AM EDT 10/08/2024 10:49 AM EDT Narrative [facility] - 10/08/2024 11:40 AM EDT [...] MD LAB BLOOD ORDERABLES Final Resu lt [facility] [address] * QuantiFERON TB2 Ag (10/08/2024 10:25 AM EDT) QuantiFERON TB2 Ag Value 0.07 10/10/2024 10:41 AM EDT [facility] Plasma 10/08/2024 10:2 5 AM EDT 10/08/2024 11:05 AM EDT Gerri Peterson MD LAB BLOOD ORDERABLES Final Resu lt [facility] [address] [facility] * QuantiFERON TB1 Ag (10/08/2024 10:25 AM EDT) QuantiFERON TB1 Ag Value 0.06 10/10/2024 10:41 AM EDT [facility] Plasma 10/08/2024 10:2 5 AM EDT 10/08/2024 11:05 AM EDT Gerri Peterson MD LAB BLOOD ORDERABLES Final Resu lt Performing Organization Address City/[facility]/ZIP Co de Phone Number [facility] [address] [facility]. [address] * QuantiFERON Nil (10/08/2024 10:25 AM EDT) Pathologist [facility] QuantiFERON Nil 0.06 10:41 AM EDT [facility] Plasma 10/08/2024 10:2 5 AM EDT 10/08/2024 11:05 AM EDT Gerri Peterson MD LAB BLOOD ORDERABLES Final Resu lt Performing Organization Address City/[facility] Co de Phone Number [facility] [address] [facility] * QuantiFERON Mitogen (10/08/2024 10:25 AM EDT) Pathologist [facility] QuantiFERON Interpretation Negative Negative 10/10/2024 10:41 AM EDT [facility] Comment:Negative result geovanny cates M. tuberculosis infection is NOT likely. Negative results do not preclude tuberculosis infection (especially in immunosuppressed patients). Negative results have a TB antigen minus Nil value less than 0.35 IU/mL. In cases with high suspicion of disease, retesting or additional testing with medical evaluation may be useful. QuantiFERON Mitogen 4.87 10/10 10:41 AM EDT [facility] Plasma 10/08/2024 10:2 5 AM EDT 10/08/2024 11:05 AM EDT Narrative [facility] - 10/10/2024 10:41 AM EDT [...] ORDERABLES Final Resu lt Performing Organization Address [facility] Co de Phone Number [facility] [address] [facility] * (ABNORMAL) Vitamin D 25 Hydroxy (10/08/2024 10:25 AM EDT) [facility] Vit D, 25-Hydroxy 7.1(L) 30.0 - 100.0 ng/mL 10/08/2024 11:36 AM EDT [facility] Comment: Vitamin D deficiency has been defined by the [place] of Medicine (IOM) and an Endocrine Society [...] ORDERABLES Final Resu lt Performing Organization Address [facility]/ZIP Co de Phone Number [facility] [address] [facility] [place] [address], [facility] * Reticulocyte Count, Auto (10/08/2024 7:41 AM EDT) Retic Ct Pct 1.35 0.50 - 2.00 % 10/08/2024 9:12 AM EDT [facility] Retic Ct Abs 26,190 25,000 - 90,000 /uL 10/08/2024 9:14 AM EDT [facility] Immature Retic Fract 0.37 0.09 - 0.56 10/08/2024 9:12 AM EDT [facility] Whole Blood 10/08/2024 7:41 AM EDT 10/08/2024 8:51 AM EDT Gómez Blanchard MD LAB BLOOD ORDERABLES Final Res ult Performing Organization Address [facility] Co de Phone Number [facility] [address] [facility] * (ABNORMAL) Haptoglobin (10/08/2024 7:41 AM EDT) Haptoglobin <30(L) 44 - 215 mg/dL 10/08/2024 8:53 AM EDT [facility] Serum 10/08/2024 7:41 AM EDT 10/08/2024 7:51 AM EDT Result [facility] Kush Posada MD, PhD LAB BLOOD ORDERABLES Final Result Performing Organization Address [facility] Co de Phone Number [facility] [address] [facility]. [address] * (ABNORMAL) Lactate dehydrogenase (10/08/2024 5:36 AM EDT) LD 102(L) 110 - 270 U/L 10/08/2024 8:20 AM EDT [facility] Plasma 10/08/2024 5:36 AM EDT 10/08/2024 7:58 AM EDT Gómez Blanchard MD LAB BLOOD ORDERABLES Final Res ult Performing Organization Address City/[facility]/ZIP Co de Phone Number [facility] [address] [facility] * Enteric Pathogen Panel (10/07/2024 10:50 PM EDT) Campylobacter Group (C. ecoli, C. jejuni, C. trino) Not Detected Not Detected 10/08/2024 4:40 AM EDT [facility] Salmonella species Not Detected Not Detected 10/08/2024 4:40 AM EDT [facility] Shigella species Not Detected Not Detected 10/08/2024 4:40 AM EDT [facility] Vibrio Group (Vibrio cholerae, Vibrio parahaemolyticus) Not Detected Not Detected 10/08/2024 4:40 AM EDT [facility] Yersinia enterocolitica Not Detected Not Detected 10/08/2024 4:40 AM EDT [facility] Shiga toxin 1 Not Detected Not Detected 10/08/2024 4:40 AM EDT [facility] Shiga toxin 2 Not Detected Not Detected 10/08/2024 4:40 AM EDT [facility] Norovirus Not Detected Not Detected 10/08/2024 4:40 AM EDT [facility] Rotavirus Not Detected Not Detected 10/08/2024 4:40 AM EDT [facility] Comment: The Enteric Pathogen Panel [...] FLUIDS AND STOOLS ORDERABLE S Final Result [facility] [address] * Urine Drug Confirmation (10/07/2024 10:50 PM EDT) Only the most recent of2 resultswithin the time period is included. BARBITURATES NOT PRESENT 10/09/2024 1:33 PM EDT [facility] BENZODIAZEPINES PRESENT 1:33 PM EDT [facility] Nordiazepam 3 ng/mL 10/09/2024 1:33 PM EDT [facility] Temazepam 6 ng/mL 10/09/2024 1:33 PM EDT [facility] CANNABINOIDS NOT PRESENT 10/09/2024 1:33 PM EDT [facility] PIECE DYER STIMULANTS NOT PRESENT 1:33 PM EDT [facility] OPIOID ANALGESICS PRESENT 025 1:33 PM EDT [facility] Oxycodone 300 ng/mL 10/09/2024 1:33 PM EDT [facility] Oxymorphone 32 ng/mL 10/09/2024 1:33 PM EDT [facility] Tramadol >1000 ng/mL 10/09/2024 1:33 PM EDT [facility] OPIOID ANTAGONISTS NOT PRESENT 10/09 1:33 PM EDT [facility] SEDATIVES/MUSCLE RELAXANTS NOT PRESENT 10/09/2024 1:33 PM EDT [facility] TRICYCLIC ANTIDEPRESSANTS NOT PRESENT 10/09/2024 1:33 PM EDT [facility] Urine 10/07/2024 10:5 0 PM EDT 10/08/2024 3:00 AM EDT Gerri Peterson MD URINE ORDERABLES Final Result Performing Organization Address City/State/[facility] Co de Phone Number [facility] [address] * Giardia Cryptosporidium Antigens (10/07/2024 10:50 PM EDT) Cryptosporidium Ag Negative Negative 2024 7:59 AM EDT [facility] Giardia Ag Negative Negative 10/08/2024 7:59 AM EDT [facility] Comment: Detection of Giardia and Cryptosporidium antigen is more sensitive and specific than microscopy. Because antigens are shed continuously, repeat testing is rarely warranted. Feces 10/07/2024 10:5 0 PM EDT 10/08/2024 1:53 AM EDT Comment:F us Bisi Hernandez DO MICROBIOLOGY - GENERAL ORDERABLE S Final Result [facility] [address] [place] [address], [facility] * Comprehensive Drug Screen (10/07/2024 10:50 PM EDT) Creatinine, Ur CANCELED mg/dL 10/08/2024 7:09 AM EDT [facility] Comment:The released value 8 7.30 was canceled by YAQUELIN on 10/08/2024 07:09 BARBITURATES CANCELED [facility] Butalbital [facility]CELED [facility] Phenobarbital CANCELED [facility] Secobarbital [facility]ED [facility] BENZODIAZEPINES CANCELED [facility] Alprazolam [facility] Clonazepam [facility] Diazepam [facility] Alpha-Hydroxyalprazo mcknight [facility] Lorazepam [facility] Midazolam [facility] Nordiazepam CANCELED [facility] Oxazepam [facility] Temazepam [facility] CANNABINOIDS CANCELED [facility] THC-COOH [facility] PIECE DYER STIMULANTS CANCELED [facility] Cocaine Metabolite(benzoylec gonine) [facility]ED [facility] Amphetamine [facility]ELED [facility] Methamphetamine [facility]ED [facility] MDA [facility] MDEA [facility] Phencyclindine (PCP) [facility] OPIOID ANALGESICS [facility] Heroin Metabolite(6-RAMONA) [facility] Codeine [facility] Morphine [facility] Hydrocodone [facility]ED [facility] Hydromorphone [facility]ED [facility] Oxycodone [facility] Oxymorphone [facility]ED [facility] Meperidine [facility] Normeperidine [facility]ED [facility] Methadone [facility] Methadone Metabolite (EDDP) [facility] Tramadol [facility] Fentanyl [facility] Norfentanyl [facility] Sufentanil [facility] OPIOID ANTAGONISTS CANCELED [facility] Buprenorphine [facility] Norbuprenorphine [facility] Naltrexone [facility] Naloxone [facility] SEDATIVES/MUSCLE RELAXANTS [facility] Carisoprodol [facility] Meprobamate [facility] TRICYCLIC ANTIDEPRESSANTS [facility] Amitriptyline [facility] Clomipramine [facility] Desipramine [facility] Doxepin [facility] Imipramine [facility] Nortriptyline [facility] Urine Creatinine CANCELED mg/dL [facility] Nitrite [facility]ED [facility] Glutaraldehyde [facility]ED [facility] pH CANCELED 10/08/2024 7:09 AM EDT [facility] Comment:The released value 5 .6 was canceled by YAQUELIN on 10/08/2024 07:09 Specific [place] CANCELED 10/09/19 7:09 AM EDT [facility] Comment:The released value 1 .009 was canceled by MABLEE on 10/08/2024 07:09 Bleach CANCELED [facility] Pyridinium Chlorochromate [facility]ELED [facility] Urine 10/07/2024 10:5 0 PM EDT 10/08/2024 2:07 AM EDT Narrative [facility] - 10/08/2024 7:09 AM EDT See accn [id number] us Gerri Peterson MD URINE ORDERABLES Edited Result - Final [facility] [address] [facility] [place] [address], [facility] * (ABNORMAL) Urine Drug Screen Reflex to Confirmation (10/07/2024 10:50 PM EDT) Only the most recent of2 resultswithin the time period is included. Amphetamine, 500 ng/mL Cutoff Negative Negative 10/08/2024 3:00 AM EDT [facility] Barbiturates UR, 300 ng/mL Cutoff Negative Negative 10/08/2024 3:00 AM EDT [facility] Buprenorphine, 5 ng/mL Cutoff Negative Negative 10/08/2024 3:00 AM EDT [facility] Benzodiazepines UR, 300 ng/mL Cutoff Negative Negative 10/08/2024 3:00 AM EDT [facility] Cocaine UR, 300 ng/mL Cutoff Negative Negative 10/08/2024 3:00 AM EDT [facility] Methadone, UR, 300 ng/mL Cutoff Negative Negative 10/08/2024 3:00 AM EDT [facility] Opiates UR, 300 ng/mL Cutoff Negative Negative 10/08/2024 3:00 AM EDT [facility] Oxycodone, 100 ng/mL Cutoff Presumptive Positive(A) Negative 10/08/2024 3:00 AM EDT [facility] Tricyclic Antidepressants, 300 ng/mL Cutoff Negative Negative 10/08/2024 3:00 AM EDT [facility] Comment:This test has been d eveloped and its performance characteristics determined by [facility] which is certified [...] Cutoff Negative Negative 10/08/2024 3:00 AM EDT [facility] Comment:This is a screening method only and may be associated with false positive and/or false negative results. Results are not definitive without additional confirmatory testing by mass spectrometry. Fentanyl, 2 ng/mL Cutoff Negative Negative 10/08/2024 3:00 AM EDT [facility] Comment:This test has been d eveloped and its performance characteristics determined by [facility] which is certified [...] Final Result Performing Organization Address [facility] Co de Phone Number [facility] [address] * Ova and Parasite Comprehensive w/ Giardia/Crypto (10/07/2024 10:50 PM EDT) O & P Method: Concentration and Trichrome Stain [facility] Results No Amoeba, Ova, Or Parasites Seen. -- O and P examination of additional specimens is recommended only for symptomatic patients, immunosuppressed patients or those with an appropriate travel history. [facility] Feces FECES / Unknown 10/07/2024 1 0:50 PM EDT 10/08/2024 1:53 AM EDT Comment:F Bisi Hernandez DO MICROBIOLOGY - GENERAL ORDERABLE S Final Result Performing Organization Address [facility] de Phone Number [facility] [address] [facility] * Hepatitis A IgM (10/07/2024 6:38 PM EDT) Only the most recent of2 resultswithin the time period is included. Hep A IgM Nonreactive Nonreactive 10/07/2024 7:46 PM EDT [facility] Serum 10/07/2024 6:38 PM EDT 10/07/2024 6:52 PM EDT Narrative [facility] - 10/07/2024 7:46 PM EDT IgM anti-HAV not detected. Does not exclude the possibility of exposure to or infection with HAV. Levels of IgM anti-HAV may be below the cut-off in early infection. Gerri Peterson MD LAB BLOOD ORDERABLES Final Resu lt Performing Organization Address [facility]/ZIP Co de Phone Number [facility] [address] * Syphilis Screening (Trepia) (10/07/2024 6:37 PM EDT) Treponema Pallidum Negative Negative 10/07/2024 8:27 PM EDT [facility] Comment: No serological evidence of infection with Treponema pallidum (incubating or early primary syphilis cannot be excluded). Serum 10/07/2024 6:37 PM EDT 10/07/2024 6:50 PM EDT Gerri Peterson MD LAB BLOOD ORDERABLES Final Resu lt Performing Organization Address [facility] Co de Phone Number [facility] [address] * (ABNORMAL) CMV IgG Antibody (10/07/2024 6:37 PM EDT) CMV IgG Positive(A ) Negative 10/07/2024 8:26 PM EDT [facility] CMV IGG NUM 8.40(H) 0.00 - 0.59 U/mL 10/07/2024 8:26 PM EDT [facility] Serum 10/07/2024 6:37 PM EDT 10/07/2024 6:50 PM EDT Gerri Peterson MD LAB BLOOD ORDERABLES Final Resu lt Performing Organization Address [facility] Co de Phone Number [facility] [address] [facility] * (ABNORMAL) Alpha 1 Antitrypsin AAT Quant & Mutation (10/07/2024 6:37 PM EDT) A-1 Antitrypsin 99(L) 101 - 187 mg/dL 10/09/2024 4:28 AM EDT [facility] A-1 Antitrypsin Pheno Comment 10/10/2024 4:05 PM EDT [facility] Comment: A1A Phenotype is consistent with a heterozygous phenotype consisting of one M (normal) allele and one allele that cannot be identified at this time. The unknown allele is not consistent with Z (deficient), S (deficient), or F (deficient). MM Phenotype is considered to be normal , producing normal serum levels of uwkzb-5-iystvydo inhibitor and not associated with clinical disease. [...] PM EDT 10/10/2024 4:08 PM EDT Narrative [facility] - 10/10/2024 4:08 PM EDT PERFORMED AT: [facility] [address] [id number] [employer] ORDERS: Bassam Khalil, PhD PHONE: [phone] PERFORMED AT: [facility] [address] [id number] [employer]ORDER [employer]GAN[employer] PRINT ORDERS: Mandy Abdul MD PHONE: [phone] us Gerri Peterson MD LAB BLOOD ORDERABLES Final Resu lt [facility] [address] [facility] [place] [address], [facility] * Strongyloides Ab (10/07/2024 6:37 PM EDT) Strongyloides Ab Negative Negative 10/11/19 11:51 AM EDT [facility] Serum 10/07/2024 6:37 PM EDT 10/10/2024 12:07 PM EDT Narrative [facility] - 10/10/2024 12:07 PM EDT PERFORMED AT: [facility] [address] [id number] [employer]GAN[employer] PR[employer] ORDERS: Mandy Abdul MD PHONE: [phone] Gerri Peterson MD LAB BLOOD ORDERABLES Final Resu lt Performing Organization Address City/[facility]/ZIP Co de Phone Number [facility] [address] [facility] * Ethanol, Serum (10/07/2024 6:37 PM EDT) Only the most recent of2 resultswithin the time period is included. Ethanol <10 0 - 10 mg/dL 10/07/2024 8:36 PM EDT [facility] Serum 10/07/2024 6:37 PM EDT 10/07/2024 6:50 PM EDT Gerri Peterson MD LAB BLOOD ORDERABLES Final Resu lt Performing Organization Address [facility] Co de Phone Number [facility] [address] [facility] * Katie-Watkins virus early antigen antibody, IgG (10/07/2024 6:37 PM EDT) EBV Early Antigen Ab, IgG <9.0 0.0 - 8.9 U/mL 10/09/2024 2:16 PM EDT [facility] Comment: Negative < 9.0 Equivocal 9.0 - 10.9 Positive >10.9 Serum Frozen 10/07/2024 6:37 PM EDT 10/09/2024 3:07 PM EDT Narrative [facility] - 10/09/2024 3:07 PM EDT PERFORMED AT: [facility] [address] [id number] [employer] ORDERS: Bassam Khalil, PhD PHONE: [phone] Gerri Peterson MD LAB BLOOD ORDERABLES Final Resu lt Performing Organization Address City/[facility]/ZIP Co de Phone Number [facility] [address] * (ABNORMAL) Varicella zoster antibody, IgG (10/07/2024 6:37 PM EDT) Varicella IgG Positive( A) Negative S/CO 10/07/2024 8:34 PM EDT [facility] Comment:Result indicates the presence of detectable VZV IgG antibodies. A positive result is generally indicative of exposure to the pathogen or administration of specific immunoglobulins, but it is no indication of active infection or stage of disease. This test is not approved for determining vaccine-induced immunity to varicella zoster virus. VZV NUM 6.76(H) 0.00 - 0.99 S/CO 10/07/2024 8:34 PM EDT [facility] Serum 10/07/2024 6:37 PM EDT 10/07/2024 6:50 PM EDT Gerri Peterson MD LAB BLOOD ORDERABLES Final Resu lt Performing Organization Address [facility] Co de Phone Number [facility] [address] [facility] * TSH (Thyroid Stimulating Hormone) (10/07/2024 6:37 PM EDT) TSH 0.81 0.45 - 4.12 uIU/mL 10/07/2024 8:17 PM EDT [facility] Serum 10/07/2024 6:37 PM EDT 10/07/2024 6:50 PM EDT Gerri Peterson MD LAB BLOOD ORDERABLES Final Resu lt Performing Organization Address City/[facility]/ZIP Co de Phone Number [facility] [address] * IgA (10/07/2024 6:37 PM EDT) IgA 227.0 70.0 - 400.0 mg/dL 10/08/2024 11:07 AM EDT [facility] Comment:Please interpret the se findings in conjunction with clinical findings, protein electrophoresis, and immunotyping/immunofixation results. Serum 10/07/2024 6:37 PM EDT 10/07/2024 6:50 PM EDT us Gerri Peterson MD LAB BLOOD ORDERABLES Final Resu lt [facility] [address] [place] [address], [facility] * (ABNORMAL) Lipid Profile (10/07/2024 6:37 PM EDT) Non-HDL Cholesterol, Calculated See Note 0 - 129 mg/dL 10/07/2024 7:42 PM EDT [facility] Comment: Desirable: < 130 mg/dL Above Desirable: 130-159 mg/dL Borderline High: 160-189 mg/dL High: 190-219 mg/dL Very High: > 219 mg/dL Unable to calculate result either because contributing result(s) are outside of reportable range or are not available. Cholesterol, Total <25 0 - 200 mg/dL 10/07/2024 7:42 PM EDT [facility] Triglycerides 30 10 - 149 mg/dL 10/07/2024 7:42 PM EDT [facility] HDL 4(L) 60 - 92 mg/dL 10/07/2024 7:42 PM EDT [facility] Comment: LIPID PROFILE INTERPRETATION CHOLESTEROL,TOTAL(mg/dL) [...] Cholesterol See Note mg/dL 7:42 PM EDT [facility] Comment:Unable to calculate result either because contributing result(s) are outside of reportable range or are not available. Plasma 10/07/2024 6:37 PM EDT 10/07/2024 7:06 PM EDT Narrative [facility] - 10/07/2024 7:42 PM EDT LDL cholesterol calculated using the Friedewald equation. us Gerri Peterson MD LAB BLOOD ORDERABLES Final Resu lt [facility] [address] [place] [address], [facility] * X-ray Mandible minimum 4-views (10/07/2024 [...] EXAM: US ABDOMEN COMPLETE EXAM: US DUPLEX [id number] COMPLETE INDICATION: elevated bilirubin COMPARISON: Ultrasound and [...] EXAM: US ABDOMEN COMPLETE EXAM: US DUPLEX [id number] COMPLETE INDICATION: elevated bilirubin COMPARISON: Ultrasound and [...] 4:26 PM EDT Bisi Hernandez [facility] [place] ORDERABLES Final Result * AFP Tumor Marker (10/07/2024 6:00 AM EDT) Only the most recent of2 resultswithin the time period is included. [facility] AFP-Tumor Marker 2.0 0.0 - 9.0 ng/mL 10/07/2024 7:11 AM EDT [facility] Serum 10/07/2024 6:00 AM EDT 10/07/2024 6:39 AM EDT Narrative [facility] - 10/07/2024 7:11 AM EDT The testing method for AFP is a chemiluminescent immunoassay manufactured by [employer] Concentrations of AFP obtained by different assay methods or kits may vary and cannot be used interchangeably. AFP results cannot be interpreted as absolute evidence of the presence or absence of malignant disease. Ni Rivera MD LAB BLOOD ORDERABLES Final Resul t Performing Organization Address City/[facility]/ZIP Co de Phone Number [facility] [address] * Osmolality (10/06/2024 2:50 PM EDT) [facility] Osmolality, Measured 304 278 - 305 mOsm/kg 10/06/2024 3:49 PM EDT [facility] Serum 10/06/2024 2:50 PM EDT 10/06/2024 2:56 PM EDT Jani Vanegas MD LAB BLOOD ORDERABLES Final Resul t Performing Organization Address City/[facility]/ZIP Co de Phone Number [facility] [address] [facility] * CT Head WO contrast (10/06/2024 [...] 4:50 PM EDT Kush Posada MD, PhD IM CT ORDERABLES Fin al Result * Sodium, urine, random (10/06/2024 1:25 PM EDT) Only the most recent of2 resultswithin the time period is included. Sodium, Ur <10 mmol/L 10/06/2024 1:56 PM EDT [facility] Comment:Reference range not established for this test. Urine 10/06/2024 1:25 PM EDT 10/06/2024 1:32 PM EDT us Jani Vanegas MD URINE ORDERABLES Final Result Performing Organization Address City/[facility] Co de Phone Number [facility] [address] [place] [address]. [address] * Potassium, urine, random (10/06/2024 1:25 PM EDT) Only the most recent of2 resultswithin the time period is included. Potassium Urine Random 50.0 mmol/L 10/06/2024 1:56 PM EDT [facility] Comment:Reference range not established for this test. Urine 10/06/2024 1:25 PM EDT 10/06/2024 1:32 PM EDT Jani Vanegas MD URINE ORDERABLES Final Result Performing Organization Address [facility] Co de Phone Number [facility] [address] [facility]. [address] * Osmolality, Urine (10/06/2024 1:25 PM EDT) Osmolality, Ur 386 50 - 1,200 mOsm/kg 10/06/2024 1:55 PM EDT [facility] Urine 10/06/2024 1:25 PM EDT 10/06/2024 1:32 PM EDT Jani Vanegas MD URINE ORDERABLES Final Result Performing Organization Address [facility] Co de Phone Number [facility] [address] [facility]. [address] * Chloride, urine, random (10/06/2024 1:25 PM EDT) Only the most recent of2 resultswithin the time period is included. Chloride, Ur <15 mmol/L 10/06/2024 1:56 PM EDT [facility] Comment:Reference range not established for this test. Urine 10/06/2024 1:25 PM EDT 10/06/2024 1:32 PM EDT Jani Vanegas MD URINE ORDERABLES Final Result Performing Organization Address [facility]/ZIP Co de Phone Number [facility] [address] * (ABNORMAL) Salicylate Level (10/06/2024 4:01 AM EDT) [facility] Salicylate Lvl <3(L) 10 - 30 mg/dL 10/06/2024 4:58 AM EDT [facility] Serum 10/06/2024 4:01 AM EDT 10/06/2024 4:22 AM EDT Bisi Hernanedz DO LAB BLOOD ORDERABLES Final Resul t Performing Organization Address City/[facility]/ZIP Co de Phone Number [facility] [address] [facility]. [address] * Upper Respiratory Viral/Bacterial Panel-VP AD SALES WEST Only (10/06/2024 3:12 AM EDT) [facility] Adenovirus Not Detected Not Detected 10/06/2024 11:38 PM EDT [facility] Coronavirus (229E,HKU1,NL63,OC 43) Not Detected Not Detected 10/06/2024 11:38 PM EDT [facility] SARS-CoV-2 Not Detected Not Detected 10/06/2024 11:38 PM EDT [facility] Human Metapneumovirus Not Detected Not Detected 10/06/2024 11:38 PM EDT [facility] Human Rhinovirus/Enterov irus Not Detected Not Detected 10/06/2024 11:38 PM EDT [facility] Influenza A Not Detected Not Detected 10/06/2024 11:38 PM EDT [facility] Influenza A H1 Not Detected Not Detected 10/06/2024 11:38 PM EDT [facility] Influenza A/H1-2009 Not Detected Not Detected 10/06/2024 11:38 PM EDT [facility] Influenza A H3 Not Detected Not Detected 10/06/2024 11:38 PM EDT [facility] Influenza B Not Detected Not Detected 10/06/2024 11:38 PM EDT [facility] Parainfluenza 1 Not Detected Not Detected 10/06/2024 11:38 PM EDT [facility] Parainfluenza 2 Not Detected Not Detected 10/06/2024 11:38 PM EDT [facility] Parainfluenza 3 Not Detected Not Detected 10/06/2024 11:38 PM EDT [facility] Parainfluenza 4 Not Detected Not Detected 10/06/2024 11:38 PM EDT [facility] Resp. Syncycial Virus A Not Detected Not Detected 10/06/2024 11:38 PM EDT [facility] Resp. Syncycial Virus B Not Detected Not Detected 10/06/2024 11:38 PM EDT [facility] Chlamydia pneumoniae Not Detected Not Detected 10/06/2024 11:38 PM EDT [facility] Mycoplasma pneumoniae Not Detected Not Detected 10/06/2024 11:38 PM EDT [facility] Comment: The Respiratory Viral-Bacterial Panel [...] Test results have been sent to the [facility] in accordance with state requirements. For a fact sheet for healthcare providers, see https://www.fda.gov/media/240318/download. For a fact sheet for patients, see https://www.fda.gov/media/926884/download. Nasopharyngeal Swab NASOPHARYNGEAL SWAB / Unknown 10/06/2024 3:12 AM EDT 10/06/2024 5:41 PM EDT Comment:VP [employer] Goingana maría DO BODY FLUIDS AND STOOLS ORDERABLE S Final Result Performing Organization Address City/[facility]/ZIP Co de Phone Number [facility] [address] * Thyroid Function Tamms (10/06/2024 1:04 AM EDT) TSH 0.84 0.45 - 4.12 uIU/mL 10/06/2024 2:20 AM EDT [facility] Serum 10/06/2024 1:04 AM EDT 10/06/2024 1:39 AM EDT [employer] LAB BLOOD ORDERABLES Final Resul t Performing Organization Address [facility] Co de Phone Number [facility] [address] [facility]. [address] * #2 Blood culture-Peripheral site 2 (10/06/2024 1:04 AM EDT) Only the most recent of2 resultswithin the time period is included. Culture Result No Growth After 5 Days [facility] Blood BLOOD SPECIMEN / Unknown 10/06/2024 1:04 AM EDT 10/06/2024 4:57 AM EDT Narrative [facility] - 10/11/2024 5:05 AM EDT Suboptimal volume of blood received. Interpret results with caution. Bisi Akana maría DO MICROBIOLOGY - GENERAL ORDERABLE S Final Result Performing Organization Address [facility] Co de Phone Number [facility] [address] * (ABNORMAL) Acetaminophen Level (10/06/2024 1:04 AM EDT) Acetaminophen Level <10(L) 10 - 30 ug/mL 10/06/2024 2:08 AM EDT [facility] Serum 10/06/2024 1:04 AM EDT 10/06/2024 1:30 AM EDT us Bisi Hernandez DO LAB BLOOD ORDERABLES Final Resul t [facility] [address] 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, VRE- urine 10/31/202410/13 Insurance [facility] GLOBAL [facility] GLOBAL [facility] [employer] GLOBAL Member Subscriber Plan / Payer ( fective 2024-Present) Name:Blair Anderson Relation to Subscriber:Self Name:Blair Anderson Payer ID:[id number] Group ID:Not on file Type:Transplant Address: [address] [place] [address] Advance Directives For more information, please contact: [phone] * Full Code (Latest Code Status on [...] 9:55 PM 08/19/2024 4:56 PM Care Teams Novelty Twister Operator Relationship Specialty Start Date End Date Endeina Mcguire NP [address] [place] [address] PCP - General Internal Medicine 10/05/24 Maureen Pantoja, RN Txp Post Coordinator Transplant Hepatology 10/28/24
--- OUTSIDE RECORDS SUMMARY | 2025-01-05 09:58 | XMS_ITS | Encounter Summary ---
Author Organization [facility] Address [address] [place] [address] Care Team Providers Care Hotel Controller Name Role Phone Enedina Mcguire NP Primary Care Provider + [phone] Maureen Pantoja RN Unavailable Unavail able Source [...] release of HIV test results or diagnoses. [id number] Health Encounter Details Date Type Department Care Team (Late st Contact Info) Description 12/18/2024 Refill [facility] Liver Transplant at [address] [place] [phone] Maureen Pantoja, RN Encounter for therapeutic drug monitoring; S/P liver transplant ([facility]); Hypomagnesemia; Kidney transplant recipient; Hypertension, unspecified [...] Recorded In the past 12 months has [employer], gas, oil, or water [email or web address] threatened to shut off services in your [...] for therapeutic drug monitoring S/P liver transplant ([facility]) Hypomagnesemia Disorders of magnesium metabolism Kidney transplant recipient Hypertension, unspecified type Gastroesophageal reflux disease, unspecified whether esophagitis present documented in this encounter Additional Health Concerns Infection Onset Date Last Indicated Resolved Time 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
--- OUTSIDE RECORDS SUMMARY | 2025-01-05 09:58 | XMS_ITS | Encounter Summary ---
Author Organization [facility] Address [address] [place] [address] Care Team Providers Care Water Treatment Specialist Name Role Phone Enedina Mcguire NP Primary Care Provider + [phone] Maureen Pantoja RN Unavailable Unavail able Source [...] release of HIV test results or diagnoses. [id number] Health Encounter Details Date Type Department Care Team (Late st Contact Info) Description 12/23/2024 Chart Note [facility] Liver Transplant at [address] [place] [phone] Maureen Pantoja, box builder results from 12/23/24 entered from [facility]. Social History Tobacco Use Types Packs/Day Years Used Date Smoking Tobacco: Former Cigarettes Smokeless Tobacco: Current Alcohol Use Standard Drinks/Week Comments Yes 0 (1 standard drink = 0.6 oz pure alcohol) History of alcohol abuse, reports no use in 3 week- typically endorses use as 4 glasses of wine a days Utilities Answer Date Recorded In the past 12 months has [employer], gas, oil, or water [employer] threatened to shut off services in your [...] Progress Notes * Maureen Pantoja RN - 12/23/2024 3:48 PM EDT Lab results from 12/23/24 entered from [facility]. documented in this encounter Plan of Treatment Not on file documented as of this encounter Procedures Procedure Name Priority Date/Time Associated Diagnosis Comments HEPATIC FUNCTION PANEL Routine 12/23/2024 9:53 AM EDT TACROLIMUS LEVEL Routine 12/23/2024 9:53 AM EDT PROTIME-INR Routine 12/23/2024 9:53 AM EDT CBC AND DIFFERENTIAL Routine 12/23/2024 9:53 AM EDT CBC AND DIFFERENTIAL Routine 12/23/2024 9:53 AM EDT MAGNESIUM Routine 12/23/2024 9:53 AM EDT RENAL FUNCTION PANEL W/O EGFR Routine 12/23/2024 9:53 AM EDT documented in this encounter Results * Tacrolimus level (12/23/2024 9:53 AM EDT) Tacrolimus Lvl 10.3 6 - 15 ng/mL Whole Blood Historical Provider LAB BLOOD ORDERABLES Denisse l Result * (ABNORMAL) Magnesium (12/23/2024 9:53 AM EDT) Magnesium 1.2(A) 1.6 - 2.4 mg/dL Plasma Harvey Domínguez III, MD LAB BLOOD ORDERABLE S Final Result * (ABNORMAL) Renal Function Panel w/o EGFR (12/23/2024 9:53 AM EDT) Pathologist [facility] Glucose 88 BUN 19 CO2 27(A) 13 - 22 mmol/L Creatinine 0.80 Potassium 4.2 Sodium 138 Chloride 105 Phosphorus 5.2(A) 2.5 - 4.9 mg/dL Calcium 9.2 EGFR 107 mg/dL Albumin 4.4 3.5 - 5.0 g/dL Blood us Harvey Domínguez III, MD LAB BLOOD ORDERABLE S Final Result * Protime-INR (12/23/2024 9:53 AM EDT) Pathologist [facility] INR 0.94 0.9 - 1.1 Protime 10.5 Plasma us Harvey Domínguez III, MD LAB BLOOD ORDERABLE S Final Result * (ABNORMAL) CBC and differential (12/23/2024 9:53 AM EDT) Pathologist [facility] Hemoglobin 11.3(A) 13.5 - 17.5 g/dL Hematocrit 33.3(A) 41 - 53 % RDW 16.0(A) 11.5 - 14.5 % Lymphocytes Absolute 1.3 / L Monocytes Absolute 0.2 / L Eosinophils Absolute 0.0 / L Basophils Absolute 0.0 / L Neutrophils Relative 61.9 46 - 78 % Lymphocytes Relative 31.1 18 - 52 % Monocytes Relative 4.0 3 - 10 % Eosinophils Relative 0.9 0 - 6 % Basophils Relative 0.9 0 - 3 % Neutrophils Absolute 2.7 / L MCH 31.7 26.0 - 34.0 pg MCHC 33.9 30 - 37 g/dL MCV 93.5 82.0 - 108.0 fL Platelets 133 K/ L RBC 3.56(A) 4.50 - 5.90 10^6/ L Blood us Harvey Domínguez III, MD LAB BLOOD ORDERABLE S Final Result * Hepatic Function Panel (12/23/2024 9:53 AM EDT) Bilirubin, Direct 0.1 Bilirubin, Indirect 0.4 Alkaline Phosphatase 73 ALT 14 AST 20 Total Bilirubin 0.5 Total Protein 6.2 Plasma us Harvey Domínguez III, MD LAB BLOOD ORDERABLE S Final Result * CBC and differential (12/23/2024 9:53 AM EDT) WBC 4.3 10^3/mL Blood us Harvey Domínguez III, MD LAB BLOOD ORDERABLE S Final Result documented in this encounter Visit Diagnoses Not on filedocumented in this encounter Additional Health Concerns Infection Onset Date Last Indicated Resolved Time 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
--- OUTSIDE RECORDS SUMMARY | 2025-01-05 09:59 | XMS_ITS ---
Author Organization [facility] Address [address] [place] [address] Care Team Providers Care Dietetics Teacher Name Role Phone Enedina Mcguire NP Primary Care Provider [phone] Maureen Pantoja RN Unavailable Unavail able Transplant Episode Kidney Recipient [facility] ([place], [place]) - [facility] Organ Received: Left Kidney Transplanted on 10/27/2024 Marked as Active Follow-up on 10/27/2024 Kidney CoordinatorJosr Weber RN Phone: N/A Fax: N/A Email: N/A [employer] Organ Diagnosis Organ Primary Contributory Kidney Hepatorenal [...] N/A N/A Flaquito Mayen MD Txp Surgeon [phone] N/A Bruno Gonzalez MD Txp Combination Technician [phone] N/A Yovanny Curran MD Referring Physician [phone] N/A Events Post-Transplant Pre-Transplant Admitted: 10/25/2024 Referred: 10/07/2024 Transplanted: 10/27/2024 Evaluation began: Discharged: 11/02/2024 Committee: 10/20/2024 Center waitlisted: 5
--- OUTSIDE RECORDS SUMMARY | 2025-01-05 09:59 | XMS_ITS | Encounter Summary ---
Author Organization [facility] Address [address] [place] [address] Care Team Providers Care Gem Setter Name Role Phone Enedina Mcguire NP Primary Care Provider + [phone] Maureen Pantoja RN Unavailable Unavail able Source [...] release of HIV test results or diagnoses. [id number] Health Encounter Details Date Type Department Care Team (Late st Contact Info) Description 12/17/2024 Chart Note [facility] Liver Transplant at [address] [place] [phone] Marlene Ro MA 12/16 Labs entered [facility] Social History Tobacco Use Types Packs/Day Years Used Date Smoking Tobacco: Former Cigarettes Smokeless Tobacco: Current Alcohol Use Standard Drinks/Week Comments Yes 0 (1 standard drink = 0.6 oz pure alcohol) History of alcohol abuse, reports no use in 3 week- typically endorses use as 4 glasses of wine a days Utilities Answer Date Recorded In the past 12 months has [employer], gas, oil, or water [employer] threatened to shut off services in your [...] Progress Notes * Marlene oR MA - 12/17/2024 10:44 AM EDT 12/16 Labs entered [facility] documented in this encounter Plan of [...] 2.4 mg/dL Plasma Narrative Resulting Agency Comment [facility] Historical Provider MD LAB BLOOD ORDERABLES Denisse l Result * (ABNORMAL) Renal Function Panel w/o EGFR (12/16/2024 10:05 AM EDT) Glucose 94 BUN 14 CO2 23(A) 13 - 22 mmol/L Creatinine 0.80 Potassium 4.3 Sodium 141 Chloride 108 Phosphorus 4.9 2.5 - 4.9 mg/dL Calcium 10.0 EGFR 107 mg/dL Albumin 4.4 3.5 - 5.0 g/dL Blood Narrative Resulting Agency Comment [facility] Result [facility] MD LAB BLOOD ORDERABLES Denisse l Result * Protime-INR (12/16/2024 10:05 AM EDT) Pathologist [facility] INR 0.95 0.9 - 1.1 Plasma Narrative Resulting Agency Comment [facility] Result [facility] MD LAB BLOOD ORDERABLES Denisse l Result [...] 4.8 10^3/mL Blood Narrative Resulting Agency Comment [facility] Result [facility] MD LAB BLOOD ORDERABLES Denisse l Result * Hepatic Function Panel (12/16/2024 10:05 AM EDT) Bilirubin, Direct 0.2 Bilirubin, Indirect 0.2 Alkaline Phosphatase 73 ALT 15 AST 19 Total Bilirubin 0.4 Total Protein 6.2 Plasma Narrative Resulting Agency Comment [facility] us Historical Provider LAB BLOOD ORDERABLES Denisse l Result documented in this encounter Visit Diagnoses Not on filedocumented in this encounter Additional Health Concerns Infection Onset Date Last Indicated Resolved Time 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
--- OUTSIDE RECORDS SUMMARY | 2025-01-05 09:59 | XMS_ITS | Encounter Summary ---
Author Organization [employer] ([place], [place], [place], [place]) Address [address] [place] [address] Care Team Providers Care Filler Room Attendant Name Role Phone Unavailable Primary Care Provider Carmen e Encounter Details Date Type Department Care Team (Late st Contact Info) Description 06/03/2018 Transcribed Document [facility] [facility] [address] [place] [address] ProviderEbenezer MD [address] [place] [address] Social History Tobacco Use Types [...] - Historical ProviderMD - 06/03/2018 3:04 PM PLASTER WHITTLER [address] [place] [address] Patient Information Name: JULIEN ZELAYA [...] [address] [place] [address] [place] [address] Mpayy (1) Within 2 to 3 days Patient [...] off of the skin. General Instructions??? Take lkli-dhg-buyvyoc and prescription medicines only as told by [...] 04/30/2006 Document Revised: 09/29/2016 Document Reviewed: 04/26/2015 [employer] Interactive Patient Education ? 2017 [employer] Allergies: No Known Medication Allergies Medication [...] verify that JULIEN ZELAYA was seen at [facility] Emergency Department on ,06/03/2018 15:04:17. [...] Assistance with quitting is available by contacting 7-693-HAUV-NOW. This is a free resource providing counseling, [...] Electronic Communications Privacy Act 18 U.S.C. ???Sections 5682-4352,?? and contain information intended for the specified [...] sure to sign up for the [facility] patient portal, which gives you 04/12 access to your medical information ??? including these discharge instructions ??? using your computer, smartphone, or tablet. Just go to [email or web address] to get started. Questions? Call . Acknowledgment [...] Electronically signed by Luis Eduardo Ochoa Conversion Shotgun Shell Loading Machine Operator Celia at 08/29/2022 6:45 PM CDT documented in this encounter Plan of Treatment Not on file documented as of this encounter Visit Diagnoses Not on filedocumented in this encounter
--- OUTSIDE RECORDS SUMMARY | 2025-01-05 09:59 | XMS_ITS | Encounter Summary ---
Author Organization [facility] Address [address] [place] [address] Care Team Providers Care Enologist Name Role Phone Enedina Mcguire NP Primary Care Provider + [phone] Maureen Pantoja RN Unavailable Unavail able Source [...] release of HIV test results or diagnoses. [id number] Health Encounter Details Date Type Department Care Team (Late st Contact Info) Description 12/31/2024 Chart Note [facility] Liver Transplant at [address] [place] [phone] Marlene Ro MA 12/31 Labs entered from [facility] Social History Tobacco Use Types Packs/Day Years Used Date Smoking Tobacco: Former Cigarettes Smokeless Tobacco: Current Alcohol Use Standard Drinks/Week Comments Yes 0 (1 standard drink = 0.6 oz pure alcohol) History of alcohol abuse, reports no use in 3 week- typically endorses use as 4 glasses of wine a days Utilities Answer Date Recorded In the past 12 months has e [employer], gas, oil, or water [employer] threatened to shut off services in your [...] Progress Notes * Marlene Ro MA - 12/31/2024 11:59 AM EDT 12/31 Labs entered from [facility] documented in this encounter Plan of Treatment Not on file documented as of this encounter Procedures Procedure Name Priority Date/Time Associated Diagnosis Comments URINE PROTEIN, TOTAL, RANDOM (W/O CREATININE) Routine 12/31/2024 9:41 AM EDT BK VIRUS QUANTITATIVE BY PCR, BLOOD Routine 12/31/2024 9:41 AM EDT HEPATIC FUNCTION PANEL Routine 12/31/2024 9:41 AM EDT TACROLIMUS LEVEL Routine 12/31/2024 9:41 AM EDT CREATININE, URINE, RANDOM Routine 12/31/2024 9:41 AM EDT URINALYSIS W/RFL TO MICROSCOPIC Routine 12/31/2024 9:41 AM EDT CBC AND DIFFERENTIAL Routine 12/31/2024 9:41 AM EDT MAGNESIUM Routine 12/31/2024 9:41 AM EDT RENAL FUNCTION PANEL W/O EGFR Routine 12/31/2024 9:41 AM EDT documented in this encounter Results * Tacrolimus level (12/31/2024 9:41 AM EDT) Tacrolimus Lvl 8.0 6 - 15 ng/mL Whole Blood us Historical Provider LAB BLOOD ORDERABLES Denisse l Result * BK Virus Quantitative by PCR, Blood (12/31/2024 9:41 AM EDT) BK Virus Quant PCR PL Negative Plasma Result [facility] LAB BLOOD ORDERABLES Denisse l Result * (ABNORMAL) Magnesium (12/31/2024 9:41 AM EDT) Magnesium 1.2(A) 1.6 - 2.4 mg/dL Plasma Narrative Resulting Agency Comment [facility] Result [facility] LAB BLOOD ORDERABLES Denisse l Result * Hepatic Function Panel (12/31/2024 9:41 AM EDT) Bilirubin, Direct 0.1 Bilirubin, Indirect 0.4 Alkaline Phosphatase 66 ALT 14 AST 22 Total Bilirubin 0.5 Total Protein 6.4 Plasma Narrative Resulting Agency Comment [facility] Result [facility] LAB BLOOD ORDERABLES Denisse l Result * (ABNORMAL) Renal Function Panel w/o EGFR (12/31/2024 9:41 AM EDT) Glucose 91 BUN 18 CO2 26(A) 13 - 22 mmol/L Creatinine 0.90 Potassium 4.2 Sodium 141 Chloride 105 Phosphorus 4.8 2.5 - 4.9 mg/dL Calcium 9.5 EGFR 113 mg/dL Albumin 4.5 3.5 - 5.0 g/dL Blood Narrative Resulting Agency Comment [facility] Result [facility] LAB BLOOD ORDERABLES Denisse l Result * Creatinine, urine, random (12/31/2024 9:41 AM EDT) Creatinine, Urine 57 Urine Narrative Resulting Agency Comment [facility] Provider Result Type Result [facility] URINE ORDERABLES Final Re sult * Urinalysis w/Rfl to Microscopic (12/31/2024 9:41 AM EDT) Glucose, UA Negative Negative Ketones, UA Negative Negative Blood, UA Negative Negative Bilirubin, UA Negative Negative Urobilinogen, UA Normal Normal Protein, UA Negative Negative pH, UA 5.5 4.5 - 8.0 Specific [place], UA 1.025 1.005 - 1.030 Clarity, UA Clear Clear Color, UA Yellow Light Yellow, Yellow Urine Narrative Resulting Agency Comment [facility] Provider URINE ORDERABLES Final Re sult * (ABNORMAL) CBC and differential (12/31/2024 9:41 AM EDT) Hemoglobin 11.4(A) 13.5 - 17.5 g/dL Hematocrit [...] 3.0 10^3/mL Blood Narrative Resulting Agency Comment [facility] Result [facility] Provider LAB BLOOD ORDERABLES Denisse l Result * Urine Protein, Tot, Random (w/o Creat) (12/31/2024 9:41 AM EDT) Total Protein, Ur 17.0 Urine Narrative Resulting Agency Comment [facility] Result [facility] Historical Provider URINE ORDERABLES Final Re sult documented in this encounter Visit Diagnoses Not on filedocumented in this encounter Additional Health Concerns Infection Onset Date Last Indicated Resolved Time 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
--- OUTSIDE RECORDS SUMMARY | 2025-01-05 09:59 | XMS_ITS | Encounter Summary ---
Author Organization [facility] Address [address] [place] [address] Care Team Providers Care Barrel Finisher Name Role Phone Enedina Mcguire NP Primary Care Provider + [phone] Maureen Pantoja RN Unavailable Unavail able Source [...] release of HIV test results or diagnoses. [id number] Reason for Visit * Reason Comments Results Encounter Details Date Type Department Care Team (Riky st Contact Info) Description 11/18/2024 Telephone [facility] Liver Transplant at [address] [address] Maureen Pantoja, RN Results Social [...] In the past 12 months has e [employer], gas, oil, or water [employer] threatened to shut off services in [...] Date End Date Enedina Mcguire NP [address] [place] [address] PCP - General Internal Medicine 10/05/24 Maureen Pantoja, RN Txp Post Coordinator Transplant Hepatology 10/28/24 documented as of this encounter
--- OUTSIDE RECORDS SUMMARY | 2025-01-05 09:59 | XMS_ITS | Encounter Summary ---
Author Organization [facility] Address [address] [place] [address] Care Team Providers Care Corporate Analyst Name Role Phone Enedina Mcguire NP Primary Care Provider [phone] Maureen Pantoja RN Unavailable Unavail able Source [...] release of HIV test results or diagnoses. [id number] Reason for Visit * Reason Comments Medication Refill Encounter Details Date Type Department Care Team (Late st Contact Info) Description 12/21/2024 Refill [facility] Liver Transplant at [address] [address] Lydia Sanchez MD [address] [place] [address] Liver/[place] [address] Encounter for therapeutic drug monitoring; S/P liver transplant ([facility]); [...] drug monitoring S/P liver transplant ([facility]) Hypomagnesemia Disorders of magnesium metabolism Kidney transplant recipient Hypertension, unspecified type Gastroesophageal reflux disease, unspecified whether esophagitis present documented in this encounter Additional Health Concerns Infection Onset Date Last Indicated Resolved Time 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
--- OUTSIDE RECORDS SUMMARY | 2025-01-05 09:59 | XMS_ITS | Referral Summary ---
Author Organization [employer] ([place], [place], [place], [place]) Address [address] [place] [address] Care Team Providers Care Linseed Cake Trimmer Name Role Phone Unavailable Primary Care [...]
--- OUTSIDE RECORDS SUMMARY | 2025-01-05 09:59 | XMS_ITS | Encounter Summary ---
Author Organization [employer] ([place], [place], [place], [place]) Address [address] [place] [address] Care Team Providers Care Publication Manager Name Role Phone Unavailable Primary Care Provider Unavailabl e Encounter Details Date Type Department Care Team (Late st Contact Info) Description 06/03/2018 Transcribed Document [facility] Family Medicine [address] [place] [address] ProviderEbenezer MD [address] [place], [place] [id number] Social History Tobacco Use Types Packs/Day Years [...] - Historical ProviderMD - 06/03/2018 2:24 PM ASSOCIATE MERCHANT Electronically signed by Gabriela [facility] Conversion Section Beamer Cerner at 08/29/2022 6:41 PM CDT documented in this encounter Plan of Treatment Not on file documented as of this encounter Visit Diagnoses Not on filedocumented in this encounter
--- OUTSIDE RECORDS SUMMARY | 2025-01-05 09:59 | XMS_ITS | Clinical Summary ---
Author Organization [employer] ([place], [place], [place], [place]) Address [address] [place] [address] Care Team Providers Care Tier In Name Role Phone Unavailable Primary Care Provider [...]
--- OUTSIDE RECORDS SUMMARY | 2025-01-05 09:59 | XMS_ITS | Encounter Summary ---
Author Organization [employer] ([place], [place], [place], [place]) Address [address] [place] [address] Care Team Providers Care Nozzle Operator Name Role Phone Unavailable Primary Care Provider Unavailabl e Encounter Details Date Type Department Care Team (Late st Contact Info) Description 06/03/2018 Transcribed Document [facility] [address] [place] [address] ProviderEbenezer MD [address] [place], [place] [id number] Social History Tobacco Use Types Packs/Day Years [...] - Historical ProviderMD - 06/03/2018 3:03 PM SURG RN ED Discharge Entered On: 06/03/2018 15:03 EST Performed On: 06/03/2018 15:03 EST by Lizeth Almeida, machinist wood Process Patient Disposition : Discharge Personal Belongings [...] 06/03/2018 15:03 EST Electronically signed by Gabriela [facility] Conversion Thermodynamics Teacher Celia at 08/29/2022 6:35 PM CDT documented in this encounter Plan of Treatment Not on file documented as of this encounter Visit Diagnoses Not on filedocumented in this encounter
--- OUTSIDE RECORDS SUMMARY | 2025-01-05 09:59 | XMS_ITS | Encounter Summary ---
Author Organization [facility] Address [address] [place] [address] Care Team Providers Care Outdoor Illuminating Engineer Name Role Phone Enedina Mcguire NP Primary Care Provider + [phone] Maureen Pantoja RN Unavailable Unavail able Source [...] release of HIV test results or diagnoses. [id number] Health Encounter Details Date Type Department Care Team (Late st Contact Info) Description 11/18/2024 Chart Note [facility] Liver Transplant at [address] [place] [phone] Marlene Ro MA Social History Tobacco Use [...] Recorded In the past 12 months has [employer], gas, oil, or water [employer] threatened to shut off services in [...] Comment [facility] us Historical Provider LAB BLOOD ORDERABLES Denisse l Result * Tacrolimus level (11/13/2024 8:44 AM EDT) Pathologist [facility] Tacrolimus Lvl 10.9 6 - 15 ng/mL Whole Blood Narrative Resulting Agency Comment [facility] [...] 5.7 10^3/mL Blood Narrative Resulting Agency Comment [facility] [...] as of this encounter Care Teams Outdoor Illuminating Engineer Relationship Specialty Start Date End Date Enedina Mcguire NP [address] [place] [address] PCP - General Internal Medicine 10/05/24 Maureen Pantoja, RN Txp Post Coordinator Transplant Hepatology 10/28/24 documented as of this encounter
--- OUTSIDE RECORDS SUMMARY | 2025-01-05 09:59 | XMS_ITS | Encounter Summary ---
Author Organization [employer] ([place], [place], [place], [place]) Address [address] [place] [address] Care Team Providers Care Religion Professor Name Role Phone Unavailable Primary Care Provider Unavailabl e Encounter Details Date Type Department Care Team (Late st Contact Info) Description 06/03/2018 Transcribed Document [facility] Family Medicine [address] [place] [address] ProviderEbenezer MD [address] [place], [place] [id number] Social History Tobacco Use Types Packs/Day Years [...] - Historical ProviderMD - 06/03/2018 12:08 PM YARDAGE CONTROL OPERATOR FORMING ED Assessment Entered On: 06/03/2018 14:51 EST Performed On: 06/03/2018 13:50 EST by Lizeth Almeida, AUTISTIC TEACHER Quick Look Assessment Level of Consciousness : Alert Affect/Behavior : Calm, Cooperative Orientation : Oriented x 4 Skin Color : Other: Slaughters Skin Temperature : Warm Skin Description : Dry Lizeth Almeida, RN - 06/03/2018 14:50 EST ED General-Functional Assess Communication Barrier : None Primary Language : Ukrainian Any Spiritual/Cultural Needs or Requests : No [...]
--- OUTSIDE RECORDS SUMMARY | 2025-01-05 09:59 | XMS_ITS | Encounter Summary ---
Author Organization [facility] Address [address] [place] [address] Care Team Providers Care Blade Boner Name Role Phone Enedina Mcguire NP Primary Care Provider + [phone] Maureen Pantoja RN Unavailable Unavail able Source [...] release of HIV test results or diagnoses. [id number] Reason for Visit * Reason Comments Results Encounter Details Date Type Department Care Team (Late st Contact Info) Description 01/05/2025 Telephone [facility] Liver Transplant at [address] [address] Maureen Pantoja, RN Results Social [...] In the past 12 months has e [employer], gas, oil, or water [employer] threatened to shut off services in your [...] Progress Notes * Maureen Pantoja RN - 01/05/2025 9:05 AM EDT Lab results from 12/31/24 reviewed. Renal panel stable. LFTs stable. Alk phos 66, AST/ALT 22/14. FK 8.0 BK negative. Will continue to monitor as per previously [...] as of this encounter Care Teams Blade Boner Relationship Specialty Start Date End Date Enedina Mcgurie NP [address] [place] [address] PCP - General Internal Medicine 10/05/24 Maureen Pantoja, ЮЛИЯ Txp Post Coordinator Transplant Hepatology 10/28/24 documented as of this encounter
--- OUTSIDE RECORDS SUMMARY | 2025-01-05 09:59 | XMS_ITS | Encounter Summary ---
Author Organization [employer] ([place], [place], [place], [place]) Address [address] [place] [address] Care Team Providers Care Field Technical Assistant Name Role Phone Unavailable Primary Care Provider Unavailabl e Encounter Details Date Type Department Care Team (Late st Contact Info) Description 06/03/2018 Transcribed Document [facility] [place] Medicine [address] [place] [address] ProviderEbenezer MD [address] [place] [address] Social History Tobacco Use Types [...] - Historical ProviderMD - 06/03/2018 3:04 PM STALLION MANAGER [address] [place] [address] PERSON INFORMATION Name JULIEN ZELAYA Age 33 Years 1985 Sex Male Language Wallisian PCP SALLY EVERETT (REF) T Marital Status Single Med Service Emergency Medicine Acct# Arrival 06/03/2018 12:08:00 Visit Reason Finger laceration; CUT FINGERS Acuity 3 - Urgent LOS 000 02:56 Depart Date: 06/03/18 03:04 PM Address: [address] [facility] [address] Comment: PROVIDER INFORMATION Provider Role Assigned Unassigned Lizeth Almeida, SEQUINS SPOOLER Nurse 06/03/2018 12:39:09 DOMINIQUE BREWER PA-C ED [...] PURI # [address]C [address] [place], [place] [id number] [email or web address] ([email or web address] Within 2 to 3 days Comment: Electronically signed by Luis Eduardo Ochoa Conversion Neighborhood Conservation Officer Cerner at 08/29/2022 6:45 PM CDT documented in this encounter Plan of Treatment Not on file documented as of this encounter Visit Diagnoses Not on filedocumented in this encounter
--- OUTSIDE RECORDS SUMMARY | 2025-01-05 09:59 | XMS_ITS ---
Author Organization [facility] Address [address] [place] [address] Care Team Providers Care Cardiology Rn Name Role Phone Enedina Mcguire NP Primary Care Provider + [phone] Maureen Pantoja RN Unavailable Unavail able Transplant Episode Liver Recipient [facility] ([place], [place]) [facility] Organ Received: Liver Transplanted on 10/26/2024 Marked as Active Follow-up on 10/26/2024 Liver CoordinatorMaureen Pantoja RN Phone: N/A Fax: N/A Email: N/A [place] Organ Diagnosis Organ Primary Contributory Liver Alcohol-Associated [...] N/A N/A Chris Orosco MD Referring Physician [phone] N/A Maureen Leeanna Pantoja, RN Txp Post Coordinator N/A N/A N/A NUBIA Barros Txp Engineering Tech N/A N/A N/A Harvey Domínguez III, MD Txp Surgeon [phone] N/A Mary Butler RN Txp Pre Coordinator N/A N/A N/A Events Post-Transplant Pre-Transplant Admitted: 10/25/2024 Referred: 08/13/2024 Transplanted: 10/26/2024 Evaluation began: Discharged: 11/02/2024 Committee: 10/14/2024 Center waitlisted: Pending Checklist Tasks (Due on or before 02/05/2025) Name Due Date Attached Appoint ment Social Work Consult 01/05/2025 Appointments (12/05/2024 - 02/05/2025) When With Visit Type Description 12/09/2024 Txp Kady De La Rosa Established Patient Encounter for therapeutic drug monitoring (Primary Dx); S/P liver transplant ([facility]); Hypomagnesemia; Kidney transplant recipient; Hypertension, unspecified type; Gastroesophageal reflux disease, unspecified whether esophagitis present 12/09/2024 Txp Jose Hanna Established Patient Kidney transplant recipient (Primary Dx); Immunosuppressive management encounter following liver transplant ([facility]); Hypomagnesemia; S/P liver transplant ([facility]); Hypertension, unspecified type; Hyperparathyroidism ([facility])
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
--- OUTSIDE RECORDS SUMMARY | 2025-01-05 09:59 | XMS_ITS | Encounter Summary ---
Author Organization [facility] Address [address] [place] [address] Care Team Providers Care Airworthiness Safety Inspector Name Role Phone Enedina Mcguire NP Primary Care Provider + [phone] Alicia Rankin RN Unavailable Unavail able Source [...] release of HIV test results or diagnoses. [id number] Reason for Visit * Reason Comments Results Medication Dose Change Encounter Details Date Type Department Care Team (Late st Contact Info) Description 12/22/2024 Telephone [facility] Liver Transplant at [address] [address] Alicia Rankin, ЮЛИЯ Results; Medication [...] Recorded In the past 12 months has [employer], gas, oil, or water company threatened to [...] for therapeutic drug monitoring S/P liver transplant ([facility]) Hypomagnesemia Disorders of magnesium metabolism Kidney transplant recipient Hypertension, unspecified type Gastroesophageal reflux disease, unspecified whether esophagitis present documented in this encounter Additional Health Concerns Infection Onset Date Last Indicated Resolved Time 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
[2025-01-05 10:00] LABS: Bilirubin,Urine Negative (Negative); Color,Urine YELLOW (Yellow); Glucose,Urine (UA) Negative (Negative); Ketones,Urine Negative (Negative); Leukocyte Esterase,Urine Negative (Negative); PH,Urine 6.0 (5.0-8.5); Protein,Urine Negative (Negative); Specific Gravity, Urine 1.015 (1.005-1.030); Urobilinogen,Urine 0.2 EU/dl (0.2)
[2025-01-05 10:13] LABS: Bacteria,Urine Trace /lpf; WBC,Urine Occasional #/hpf (0-3)
[2025-01-05 11:08] LABS: Albumin Level 4.8 g/dl (3.5-5.0); Chloride 101 mmol/L (98-107); Potassium 4.0 mmoL/L (3.5-5.1); Sodium 140 mmol/L (136-145)
[2025-01-05 11:11] LABS: Alanine Aminotransferase 16 U/L (12-78); Alkaline Phosphatase 47 U/L (38-126); Anion Gap 14.0 mEq/L (5-15); Aspartate Amino Transferase 28 U/L (17-59); Bilirubin,Direct 0.2 mg/dl (0.0-0.4); Bilirubin,Indirect 0.8 mg/dL (0.0-0.9); Bilirubin,Total 1.0 mg/dl (0.2-1.3); Bilirubin,Unconjugated 0.7 mg/dL (0.0-1.1); Blood Urea Nitrogen 19 mg/dl (9-20); Calcium 9.7 mg/dl (8.4-10.2); Carbon Dioxide 29 mmol/L (22.0-30.0); Creatinine,Serum 1.10 mg/dl (0.66-1.25); Estimated Glomerular Filt Rate 74 ml/min (>60); GFR (African American) 89 ML/MIN (>60); Glucose 98 mg/dl (74-100); Phosphorous 5.4 mg/dl (2.5-4.5); Total Protein,Serum 7.0 g/dl (6.3-8.2)
[2025-01-05 11:17] LABS: Magnesium 1.0 mg/dl (1.6-2.3)
[2025-01-07 16:16] LABS: BKV DNA, Quant PCR, Plasma Negative (Negative)
[2025-01-09 00:21] LABS: Tacrolimus (FK506), Blood 12.6 ng/mL (5.0-20.0)
== END 2025-01-05 23:59 | disposition home or self-care (01) ==
LOC: LAB 09:19
PROVIDERS: PCP Nurse Practitioner Family; Visit Provider Surgery
DX: D84.9 Immunodeficiency, unspecified (principal); Z94.0 Kidney transplant status; Z94.4 Liver transplant status; Z20.828 Contact with and (suspected) exposure to other viral communicable diseases
CPT/HCPCS: 36415; 80069; 80076; 80197; 81001; 82570; 83735; 84156; 85025; 87086

== ENCOUNTER 2025-01-09 12:17 | Outpatient (CLI) | payer OTHER, SELFPAY ==
--- OUTSIDE RECORDS SUMMARY | 2024-11-04 08:40 | XMS_ITS | Encounter Summary ---
Author Organization [facility] Address [address] [place] [address] Care Team Providers Care Weigh And Charge Worker Name Role Phone Enedina Mcguire NP Primary Care Provider + [phone] Maureen Pantoja RN Unavailable Unavail able Source [...] release of HIV test results or diagnoses. [id number] Reason for Visit * Reason Comments Liver Transplant Follow-up Encounter Details Date Type Department Care Team (Late st Contact Info) Description 11/04/2024 8:40 AM EDT Office Visit [facility] Liver Transplant at [address] [address] Cosmo Pacheco MD [address] [place] [address] Liver/[place] [address] Liver transplant recipient (CMS-HCC) (Primary [...] the past 12 months has th e [employer], gas, oil, or water company threatened to [...] Nutrition: patient continues close f/u w/ transplant dimensional engineer. - Bone health: Vit D level to be drawn ~POD#90. - Labs: Labs (CBC w/ diff, renal panel, liver panel, tacro level) twice a week. Lipid panel, [id number] Vit D level to be drawn at [...] management for this patient. Cosmo Pacheco MD Airport Location Manager of Transplant Surgery [phone] (m) [1] Allergies Allergen Reactions Adhesive Itching [...] encounter Visit Diagnoses Diagnosis Liver transplant recipient ([facility])- Primary Alcoholic cirrhosis of liver with ascites ([facility]) Kidney transplant recipient Acute kidney injury superimposed on CKD ([facility]) CKD (chronic kidney disease) stage 4, GFR 15-29 ml/min ([facility]) Chronic kidney disease, Stage IV (severe) Immunosuppressive management encounter following liver transplant ([facility]) Abdominal pain, unspecified abdominal location documented in this encounter Additional Health Concerns Infection Onset Date Last Indicated Resolved Time 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
--- OUTSIDE RECORDS SUMMARY | 2024-11-11 08:50 | XMS_ITS | Encounter Summary ---
Author Organization [facility] Address [address] [place] [id number] Care Team Providers Care Sewer Pipe Press Operator Name Role Phone Enedina Mcguire NP Primary Care Provider + [phone] Maureen Pantoja RN Unavailable Unavail able Source [...] release of HIV test results or diagnoses. [id number] Reason for Visit * Reason Comments Labs Only Encounter Details Date Type Department Care Team (Late st Contact Info) Description 11/11/2024 8:50 AM EDT Specimen [facility] Outreach Lab [address] [place] [id number] Harvey Domínguez III, MD [address] [place] [address] [place] [phone] Liver replaced by transplant ([facility] [...] In the past 12 months has e [employer], [employer], [employer], or water company threatened to shut off [...] 9:13 AM EDT Liver replaced by transplant ([facility]) Immunosuppressive management encounter following liver transplant ([facility]) TACROLIMUS LEVEL Routine 11/11/2024 9:13 AM EDT [...] - 2.5 mg/dL 11/11/2024 10:51 AM EDT [facility] Plasma 11/11/2024 9:13 AM EDT 11/11/2024 10:19 AM EDT Caron Santos CNP LAB BLOOD ORDERABLES Denisse l Result Performing Organization Address [facility] Co de Phone Number [facility] [address] [facility] * (ABNORMAL) Post Kidney Transplant Urine Culture (11/11/2024 9:13 AM EDT) Culture Result Enterococcus faecium(A) [facility] Comment: <1,000 cfu/mL Identified by MALDI-TOF MS No Further Workup Midstream Urine URINE SPECIMEN / Unknown 11/11/2024 9:13 AM EDT 11/11/2024 10:17 AM EDT Caron Santos CNP MICROBIOLOGY - GENERAL OR DERABLES Final Result Performing Organization Address [facility] de Phone Number [facility] [address] * Protein / creatinine ratio, urine (11/11/2024 9:13 AM EDT) Creatinine, Urine 71.40 mg/dL 11/11/2024 10:38 AM EDT [facility] Comment:Reference range not established for this test. Total Protein, Ur 28 mg/dL 11/11/2024 10:38 AM EDT [facility] Comment:Reference range not established for this test. Prot/Creat Ratio, Ur 0.39 ratio 11/11/2024 10:38 AM EDT [facility] Urine 11/11/2024 9:13 AM EDT 11/11/2024 10:12 AM EDT Caron Santos CNP URINE ORDERABLES Final Re sult Performing Organization Address [facility]/ZIP Co de Phone Number [facility] [address] * (ABNORMAL) Urinalysis w/Rfl to Microscopic (11/11/2024 9:13 AM EDT) Color, UA Straw Yellow,Straw 11/11/2024 10:36 AM EDT [facility] Clarity, UA Clear Clear 11/11/2024 10:36 AM EDT [facility] Specific Ward, UA 1.015 1.005 - 1.035 11/11/2024 10:36 AM EDT [facility] pH, UA 6.0 5.0 - 8.0 11/11/2024 10:36 AM EDT [facility] Protein, UA Negative Negative mg/dL 11/11/2024 10:36 AM EDT [facility] Glucose, UA Negative Negative mg/dL 11/11/2024 10:36 AM EDT [facility] Ketones, UA Negative Negative mg/dL 11/11/2024 10:36 AM EDT [facility] Bilirubin, UA Negative Negative 11/11/2024 10:36 AM EDT [facility] Blood, UA Small(A) Negative 11/11/2024 10:36 AM EDT [facility] Nitrite, UA Negative Negative 11/11/2024 10:36 AM EDT [facility] Urobilinogen, UA <2.0 0.2 - 1.9 mg/dL 11/11/2024 10:36 AM EDT [facility] Leukocyte Esterase, UA Negative Negative 11/11/2024 10:36 AM EDT [facility] RBC, UA 13(H) 0 - 3 /HPF 11/11/2024 10:36 AM EDT [facility] WBC, UA 4 0 - 5 /HPF 11/11/2024 10:36 AM EDT [facility] Urine 11/11/2024 9:13 AM EDT 11/11/2024 10:10 AM EDT us Caron Santos SCRUBBING MACHINE OPERATOR URINE ORDERABLES Final Re sult [facility] [address] [place] [address], [place] * (ABNORMAL) Differential (11/11/2024 9:13 AM EDT) Neutrophils Relative 69.3 40.0 - 80.0 % 11/11/2024 10:31 AM EDT [facility] Lymphocytes Relative 17.6 15.0 - 45.0 % 11/11/2024 10:31 AM EDT [facility] Monocytes Relative 8.5 0.0 - 12.0 % 11/11/2024 10:31 AM EDT [facility] Eosinophils Relative 2.0 0.0 - 8.0 % 11/11/2024 10:31 AM EDT [facility] Basophils Relative 2.6(H) 0.0 - 1.0 % 11/11/2024 10:31 AM EDT [facility] nRBC 0 0 - 0 /100 WBC 11/11/2024 10:31 AM EDT [facility] Neutrophils Absolute 4,920 1,520 - 8,640 /uL 11/11/2024 10:31 AM EDT [facility] Lymphocytes Absolute 1,250 570 - 4,860 /uL 11/11/2024 10:31 AM EDT [facility] Monocytes Absolute 604 0 - 1,296 /uL 11/11/2024 10:31 AM EDT [facility] Eosinophils Absolute 142 0 - 864 /uL 11/11/2024 10:31 AM EDT [facility] Basophils Absolute 185(H) 0 - 108 /uL 11/11/2024 10:31 AM EDT [facility] Whole Blood 11/11/2024 9:13 AM EDT 11/11/2024 10:19 AM EDT Narrative [facility] - 11/11/2024 10:31 AM EDT Standing orders to be drawn: Every Sunday and before 9am and prior to patient taking morning medications. Liver Transplant Fax results to [phone] Call Critical results to [phone] us Harvey Domínguez III, MD LAB BLOOD ORDERABLE S Final Result [facility] [address] [place] [address], [place] * (ABNORMAL) CBC (11/11/2024 9:13 AM EDT) WBC 7.1 3.8 - 10.8 10E3/uL 11/11/2024 10:31 AM EDT [facility] RBC 3.42(L) 4.20 - 5.80 10E6/uL 11/11/2024 10:31 AM EDT [facility] Hemoglobin 10.6(L) 13.2 - 17.1 g/dL 11/11/2024 10:31 AM EDT [facility] Hematocrit 31.3(L) 38.5 - 50.0 % 11/11/2024 10:31 AM EDT [facility] MCV 91.5 80.0 - 100.0 fL 11/11/2024 10:31 AM EDT [facility] MCH 31.0 27.0 - 33.0 pg 11/11/2024 10:31 AM EDT [facility] MCHC 33.8 32.0 - 36.0 g/dL 11/11/2024 10:31 AM EDT [facility] RDW 20.5(H) 11.0 - 15.0 % 11/11/2024 10:31 AM EDT [facility] Platelets 308 140 - 400 10E3/uL 11/11/2024 10:31 AM EDT [facility] MPV 6.1(L) 7.5 - 11.5 fL 11/11/2024 10:31 AM EDT [facility] Whole Blood 11/11/2024 9:13 AM EDT 11/11/2024 10:19 AM EDT Narrative [facility] - 11/11/2024 10:31 AM EDT Standing orders to be drawn: Every Sunday and before 9am and prior to patient taking morning medications. Liver Transplant Fax results to [phone] Call Critical results to [phone] us Harvey Domínguez III, MD LAB BLOOD ORDERABLE S Final Result [facility] [address] [place] [address], [facility] * (ABNORMAL) Renal Function Panel w/EGFR (11/11/2024 9:13 AM EDT) Sodium 141 133 - 146 mmol/L 11/11/2024 10:51 AM EDT [facility] Potassium 4.6 3.5 - 5.3 mmol/L 11/11/2024 10:51 AM EDT [facility] Chloride 108 98 - 110 mmol/L 11/11/2024 10:51 AM EDT [facility] CO2 24 21 - 33 mmol/L 11/11/2024 10:51 AM EDT [facility] Anion Gap 9 3 - 16 mmol/L 11/11/2024 10:51 AM EDT [facility] BUN 27(H) 7 - 25 mg/dL 11/11/2024 10:51 AM EDT [facility] Creatinine 1.14 0.60 - 1.30 mg/dL 11/11/2024 10:51 AM EDT [facility] Glucose 97 70 - 100 mg/dL 11/11/2024 10:51 AM EDT [facility] Calcium 8.6 8.6 - 10.3 mg/dL 11/11/2024 10:51 AM EDT [facility] Phosphorus 4.4 2.1 - 4.7 mg/dL 11/11/2024 10:51 AM EDT [facility] Albumin 3.8 3.5 - 5.7 g/dL 11/11/2024 10:[facility] Osmolality, Calculated 297 278 - 305 mOsm/kg 11/11/2024 10:51 AM EDT [facility] EGFR 83 11/11/2024 10:51 AM EDT [facility] Comment:As of 2021, [...] morning medications. Liver Transplant Fax results to [phone] Call Critical results to [phone] DO NOT REPLACE RENAL PANEL or HEPATIC FUNCTION PANEL w/ CMP, BMP or HEPATIC PROFILE us Harvey Domínguez III, MD LAB BLOOD ORDERABLE S Final Result [facility] [address] [place] [address], [facility] * (ABNORMAL) Hepatic Function Panel (11/11/2024 9:13 AM EDT) Total Bilirubin 1.0 0.0 - 1.5 mg/dL 11/11/2024 10:51 AM EDT [facility] Bilirubin, Direct 0.39 0.00 - 0.40 mg/dL 11/11/2024 10:51 AM EDT [facility] AST 15 13 - 39 U/L 11/11/2024 10:51 AM EDT [facility] ALT 26 7 - 52 U/L 11/11/2024 10:51 AM EDT [facility] Alkaline Phosphatase 125 36 - 125 U/L 11/11/2024 10:51 AM EDT [facility] Total Protein 5.9(L) 6.4 - 8.9 g/dL 11/11/2024 10:51 AM EDT [facility] Albumin 3.8 3.5 - 5.7 g/dL 11/11/2024 10:51 AM EDT [facility] Bilirubin, Indirect 0.61 0.00 - 1.10 mg/dL 11/11/2024 10:51 AM EDT [facility] Plasma 11/11/2024 9:13 AM EDT 11/11/2024 10:19 AM EDT Narrative [facility] - 11/11/2024 10:51 AM EDT Standing orders to be drawn: Every Sunday and before 9am and prior to patient taking morning medications. Liver Transplant Fax results to [phone] Call Critical results to [phone] DO NOT REPLACE RENAL PANEL or HEPATIC FUNCTION PANEL w/ CMP, BMP or HEPATIC PROFILE Harvey Domínguez III, MD LAB BLOOD ORDERABLE S Final Result Performing Organization Address [facility] Co de Phone Number [facility] [address] [facility] * Tacrolimus level (11/11/2024 9:13 AM EDT) [facility] Tacrolimus (LC-MS) 10.4 3.0 - 15.0 ng/mL 11/11/2024 1:22 PM EDT [facility] Comment:Performed via liquid chromatography tandem mass spectrometry. Detection limit: 1 ng/mL. Individual target concentrations may vary due to target organ and time after transplant. This test has been developed and its performance characteristics determined by [facility] which is certified under the Clinical [...] AM EDT 11/11/2024 10:19 AM EDT Narrative [facility] - 11/11/2024 1:22 PM EDT Standing orders to be drawn: Every Sunday and before 9am and prior to patient taking morning medications. Liver Transplant Fax results to [phone] Call Critical results to [phone] Harvey Domínguez III, MD LAB BLOOD ORDERABLE S Final Result Performing Organization Address City/[facility]/ZIP Co de Phone Number [facility] 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
--- OUTSIDE RECORDS SUMMARY | 2024-11-11 09:30 | XMS_ITS | Encounter Summary ---
Author Organization [facility] Address [address] [place] [address] Care Team Providers Care Digital Computer Operator Name Role Phone Enedina Mcguire NP Primary Care Provider + [phone] Maureen Pantoja RN Unavailable Unavail able Source [...] release of HIV test results or diagnoses. [id number] Health Encounter Details Date Type Department Care Team (Late st Contact Info) Description 11/11/2024 9:30 AM EDT Office Visit [facility] Psych[facility] Transplant at [facility] [address] [facility] [address] [place] [address] Craig Warren PsyD [address] [facility] [address] [place] [address] PTSD (post-traumatic stress disorder) (Primary Dx) Social History Tobacco Use Types [...] In the past 12 months has th [employer], [employer], or [email or web address] threatened to shut off services in your [...] Progress Notes * Craig Warren PsyD - 11/11/2024 9:30 AM EDT Transplant Psychology Outpatient Visit Julien Anderson is a 39 y.o. 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 Seen by this continuity writer for pre-surgical evaluation. PMH includes PTSD and AUD. Referred to transplant psychiatry for medication management. Prozac started during October 2024 admission, pre-txp. Seen today for f/up. Subjective: Patient arrived to the appointment on-time and was escorted to a private office. Discussed medical updates since last session. Continues to gain strength and looks forward to increased independence. Patient reported that his mood is better since last session, and he denied sideeffects from Prozac. Unclear if improvements in mood are due to new liver, medication, or both. Patient denied any interest in discontinuing psychotropic currently, given stability in course. Explored health behavior goals (walking, trips) and appropriate milestones. Also broached thoughts and feelings related to the donor. Agreed to revisit at future December appointment. Encouraged patient to reach out should mood symptoms worsen. Objective/Mental Status Examination: - Orientation: Person, place, time, and situation - Appearance: appropriately dressed, looked stated age - Motor: WNL - Eye contact: WNL - Speech: Normal tone, volume, rate, articulation and intensity - Speech content: without delusions, paranoia, suicidal or homicidal ideations, intent or plan. - Thought Process: Organized with linear process. - Mood: better , euthymic - Affect: Congruent - Attitude: Cooperative, friendly - Judgment/Insight: Good Assessment: Dx: PTSD, AUD Plan: Next session scheduled for 12/18/2024 Patient to follow-up with medical providers. 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
--- OUTSIDE RECORDS SUMMARY | 2024-11-11 10:00 | XMS_ITS | Encounter Summary ---
Author Organization [facility] Address [address] [place] [address] Care Team Providers Care Master Control Supervisor Name Role Phone Enedina Mcguire NP Primary Care Provider + [phone] Maureen Pantoja RN Unavailable Unavail able Source [...] release of HIV test results or diagnoses. [id number] Reason for Visit * Reason Comments Liver Transplant Follow-up Encounter Details Date Type Department Care Team (Late st Contact Info) Description 11/11/2024 10:00 AM EDT Office Visit [facility] Liver Transplant at [address] [address] Cosmo Pacheco MD [address] [place] [address] Liver/[place] [address] Harvey Domínguez III, MD [address] [place] [address] Encounter for therapeutic drug monitoring (Primary [...] the past 12 months has th e [employer], [employer], oil, or water [employer] threatened to shut off services in your [...] times a day. naloxone (NARCAN) 4 mg/actuation [place] Apply 1 spray in one nostril [...] Nutrition: patient continues close f/u w/ transplant hospice fellow. - Bone health: Vit D level to be drawn ~POD#90. - Labs: Labs (CBC w/ diff, renal panel, liver panel, tacro level) twice a week. Lipid panel, [id number] Vit D level to be drawn at POD#90, HgbA1C and Vit D level to be drawn at POD#180. - Follow up: RTC 2 weeks Kemar Sahni MD, Fellow, Multiorgan Abdominal Transplant Surgery. [facility]. [1] Allergies Allergen Reactions Adhesive Itching [...] as of this encounter Care Teams Master Control Supervisor Relationship Specialty Start Date End Date Enedina Mcguire NP [address] [place] [address] PCP - General Internal Medicine 10/05/24 Maureen Pantoja, RN Txp Post Coordinator Transplant Hepatology 10/28/24 documented as of this encounter
--- OUTSIDE RECORDS SUMMARY | 2024-11-25 09:00 | XMS_ITS | Encounter Summary ---
Author Organization [facility] Address [address] [place] [address] Care Team Providers Care Forestry Tree Pruner Name Role Phone Enedina Mcguire NP Primary Care Provider + [phone] Maureen Pantoja RN Unavailable Unavail able Source [...] release of HIV test results or diagnoses. [id number] Health Encounter Details Date Type Department Care Team (Late st Contact Info) Description 11/25/2024 9:00 AM EDT Procedure visit [facility] Urology at [place] [facility] 222 [facility] [address] [place] [address] Julieta Rogers PA 222 [facility] [address] [place] [address] Retained ureteral stent of transplanted kidney ([facility]-HCC) (Primary Dx) Social History Tobacco Use [...] the past 12 months has th e [employer], [employer], oil, or water company threatened to shut [...] used for procedure: Flex Uro Loaner 12 [facility] Urology Flexible Cystoscope Log Cystoscope Label Serial Number Model Flex Uro 1 [id number] Olympus CYF-VHR Flex Uro 2 7526791 Olympus CYF Type V2R Flex Uro 3 0948872 Olympus CYF Type V2R Flex Uro 4 1388335 Olympus CYF Type V2R Flex Uro 5 2938124 Olympus CYF Type V2R Flex Uro 6 3587062 Olympus CYF Type V2R Flex Uro 7 4422655 CYF VHR Flex Uro 8 8132635 CYF VHR Flex Uro 9 2225947 CYF VHR Flex Uro 10 1288055 CYF VHR Flex Uro 11 4672953 CYF VHR Flex Uro 12 0920444 CYF VHR Uro Loaner 12 [id number] CYF VHR Uro Loaner 13 [id number] CYF VHR Uro Loaner 14 [id number] CYF VHR * NAA Merida - 11/25/2024 [...] documented as of this encounter Care Teams Forestry Tree Pruner Relationship Specialty Start Date End Date Enedina Mcguire NP [address] [place] [address] PCP - General Internal Medicine 10/05/24 Maureen Pantoja, ЮЛИЯ Txp Post Coordinator Transplant Hepatology 10/28/24 documented as of this encounter
--- OUTSIDE RECORDS SUMMARY | 2024-11-25 10:50 | XMS_ITS | Encounter Summary ---
Author Organization [facility] Address [address] [place] [address] Care Team Providers Care Research Development Director Name Role Phone Enedina Mcguire NP Primary Care Provider + [phone] Maureen Pantoja RN Unavailable Unavail able Source [...] release of HIV test results or diagnoses. [id number] Reason for Visit * Reason Comments Liver Transplant Follow-up Encounter Details Date Type Department Care Team (Late st Contact Info) Description 11/25/2024 10:50 AM EDT Office Visit [facility] Liver Transplant at [place] [address] [place] [address] Leisa Juarez MD [address] [place] [address] 2nd [place] [address] Seble Colon [facility] [address] [place] [address] NADIYA (acute kidney injury) ([facility]) (Primary Dx); Kidney replaced by [...] the past 12 months has th e [employer], [employer], oil, or water company threatened to shut [...] Hypertension Other hyperlipidemia 07/26/2024 Renal cell carcinoma ([facility]) Thrombocytopenia ([facility]) Thyroid disease Surgical History: Past [...] Strain: Low Risk (07/09/2024) Received from [facility] Overall Financial Resource Strain (CARDIA) Difficulty of [...] To Answer (07/14/2024) Received from [facility] Bulgarian [place] of Occupational Health - Occupational [...] times a day. naloxone (NARCAN) 4 mg/actuation [place] Apply 1 spray in one nostril [...] Results Component Value Date PTH 36.0 10/25/2024 [id number] 7.1 (L) 10/08/2024 Hemoglobin A1C: Lab Results [...] as of this encounter Care Teams Research Development Director Relationship Specialty Start Date End Date Enedina Mcguire NP [address] [place], [place] [phone] PCP - General Internal Medicine 10/05/24 Maureen Pantoja, RN Txp Post Coordinator Transplant Hepatology 10/28/24 documented as of this encounter
--- OUTSIDE RECORDS SUMMARY | 2024-12-04 14:15 | XMS_ITS | Encounter Summary ---
Author Organization [facility] Address [address] [place] [address] Care Team Providers Care Nurse Companion Name Role Phone Enedina Mcguire APRN Primary Care Provider + Reason for Visit * Reason Comments Follow-up Neck Pain Med Management Encounter Details Date Type Department Care Team (Late st Contact Info) Description 12/04/2024 2:15 PM EDT Office Visit [facility] PAIN MANAGEMENT [address] [address] Dawn Christie PA-C [address] [facility] [address] [place] [address] Cervical radiculopathy (Primary Dx); Long-term use of [...] alcohol) 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 [facility] Utilities Answer Date Recorded In the past 12 months has [facility] [employer], gas, oil, or water [employer] threatened to shut off services in your [...] Brief Depression Severity Measure Score 0 10/02/2022 [facility] - [...] GED or equivalent No 07/09/2024 Preferred Language Sao Tomean 07/09/2024 PHQ-2 Answer Date Recorded Patient Health [...] 12/05/2024 12:56 PM Modules accepted: Orders * Danw Christie PA-C - 12/04/2024 2:15 PM EDT Referring Physician: Enedina Mcguire, HAIR WORKER [address] [place] [address] Primary Physician: Enedina Mcguire APRN CHIEF COMPLAINT [...] and liver transplant at [facility] since his last office visit. Additionally, he has been started on Dilaudid 2 mg every 6 hours and gabapentin 100 mg 3 times daily by one of his transplant providers at the [facility]. He was previously prescribed tramadol 50 mg 1 to 2 tablets daily as needed. Patient reports he is following up weekly with his transplant providers at the [facility]. Continues to have some chronic neck pain. [...] Surgeon: Presley Montes De Oca MD; Location: [facility] ENDOS[facility]; Service: Gastroenterology; Laterality: N/A; ENDOSCOPY N/A 07/29/2022 Procedure: ESOPHAGOGASTRODUODENOSCOPY; Surgeon: Presley Montes De Oca MD; Location: [facility] ENDOS[facility]; Service: Gastroenterology; Laterality: N/A; WITH APC [...] transplant providers at the [facility] for postoperative pain for the last 3 [...] provided from his transplant team at the [facility]. Additionally, this did reveal positive THC. Tramadol is a controlled substance and stated [place] and any use of illicit drugs/substances such [...] Referrals: None indicated 9. Records: Kristofer reviewed; [facility] notes reviewed 10. Lifestyle goals: Follow-up 1 month for medication management [facility] Pain Management Dawn Christie PA-C documented in this encounter Plan of Treatment Upcoming Encounters Date Type Department Care Team (Late st Contact Info) Description 04/02/2025 2:15 PM EST Office Visit [facility] PAIN MANAGEMENT [address] [facility] [address] [place] [address] Dawn Christie PA-C [address] [facility] [address] [place] [address] documented as of this encounter Results * (ABNORMAL) Urine Drug Screen - Urine, Clean Catch (12/04/2024 2:50 PM EDT) THC, Screen, Urine Positive(A) Negative 12/04 8:32 PM EDT [facility] Phencyclidine (PCP), Urine Negative Negative 12/04/2024 8:32 PM EDT [facility] Cocaine Screen, Urine Negative Negative 12/04/2024 8:32 PM EDT [facility] Methamphetamine, Ur Negative Negative 12/04/2024 8:32 PM EDT [facility] Opiate Screen Positive(A) Negative 12/04/2024 8:32 PM EDT [facility] Amphetamine Screen, Urine Negative Negative 12/04/2024 8:32 PM EDT [facility] Benzodiazepine Screen, Urine Negative Negative 12/04/2024 8:32 PM EDT [facility] Tricyclic Antidepressants Screen Negative Negative 12/04/2024 8:32 PM EDT [facility] Methadone Screen, Urine Negative Negative 12/04/2024 8:32 PM EDT [facility] Barbiturates Screen, Urine Negative Negative 12/04/2024 8:32 PM EDT [facility] Oxycodone Screen, Urine Negative Negative 12/04/2024 8:32 PM EDT [facility] Buprenorphine, Screen, Urine Negative Negative 12/04/2024 8:32 PM EDT [facility] Urine Urine specimen obtained by clean catch procedure / Unknown Collection / Unknown 12/04/2024 2:50 PM EDT 12/04/2024 2:54 PM EDT Narrative [facility] - 12/04/2024 8:32 [...] Christie PA-C URINE ORDERABLES Final R esult [facility]
[address] [phone] documented in this encounter Visit Diagnoses Diagnosis [...] documented as of this encounter Care Teams Nurse Companion Relationship Specialty Start Date End Date Enedina Mcguire APRN [address] [place] [address] PCP - General Nurse Practitioner 10/27/24 documented as of this encounter
--- OUTSIDE RECORDS SUMMARY | 2024-12-04 14:55 | XMS_ITS | Encounter Summary ---
[facility] Address [address] [place] [address] Care Team Providers Care Marketing Compliance Manager Name Role Phone Enedina Mcguire APRN Primary Care Provider + Encounter Details Date Type Department Care Team (Late st Contact Info) Description 12/04/2024 2:55 PM EDT Lab [facility] [place] [address] [facility] [address] [place] [address] Therapeutic drug monitoring Social History Tobacco Use Types Packs/Day Years Used Date Smoking Tobacco: Former Cigarettes 4 20 Passive Smoke Exposure: Past Smokeless Tobacco: Current Comments:MARIJUANA USE ABOUT 2X PER WEEK - reports no use 08-05-2024 Alcohol Use Standard Drinks/Week Comments Not Currently 0 (1 standard drink = 0.6 oz pure alcohol) 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 [facility] Utilities Answer Date Recorded In the past 12 months has [employer], [employer], oil, or water [employer] threatened to shut off services in [...] Brief Depression Severity Measure Score 0 10/02/2022 [facility] - Occupational Stress Questionnaire Answer Date [...] GED or equivalent No 07/09/2024 Preferred Language Polish 07/09/2024 PHQ-2 Answer Date Recorded Patient Health [...] Description 04/02/2025 2:15 PM EST Office Visit [facility] PAIN [facility]GEMENT [address] [address] Vazquez Christie PA-C [address] [place] [address] documented as of this encounter Procedures Procedure Name Priority Date/Time Associated Diagnosis Comments URINE DRUG SCREEN Routine 12/04/2024 2:5 0 PM EDT Therapeutic drug monitoring FENTANYL, URINE Routine 12/04/2024 2:50 PM EDT Therapeutic drug monitoring documented in this encounter Results * Fentanyl, Urine - Urine, Clean Catch (12/04/2024 2:50 PM EDT) Fentanyl, Urine Negative Negative 12/04/2024 9:15 PM EDT [facility] Urine Urine specimen obtained by clean catch procedure / Unknown Collection / Unknown 12/04/2024 2:50 PM EDT 12/04/2024 2:54 PM EDT Narrative [facility] - 12/04/2024 9:15 PM EDT Negative [...] when unconfirmed results are used. us Vazquez Urbanp PA-C URINE ORDERABLES Final R esult [facility]
[address] [place] [address], * (ABNORMAL) Urine Drug Screen - Urine, Clean Catch (12/04/2024 2:50 PM EDT) THC, Screen, Urine Positive(A) Negative 12/04 8:32 PM EDT [facility] Phencyclidine (PCP), Urine Negative Negative 12/04/2024 8:32 PM EDT [facility] Cocaine Screen, Urine Negative Negative 12/04/2024 8:32 PM EDT [facility] Methamphetamine, Ur Negative Negative 12/04/2024 8:32 PM EDT [facility] Opiate Screen Positive(A) Negative 12/04/2024 8:32 PM EDT [facility] Amphetamine Screen, Urine Negative Negative 12/04/2024 8:32 PM EDT [facility] Benzodiazepine Screen, Urine Negative Negative 12/04/2024 8:32 PM EDT [facility] Tricyclic Antidepressants Screen Negative Negative 12/04/2024 8:32 PM EDT [facility] Methadone Screen, Urine Negative Negative 12/04/2024 8:32 PM EDT [facility] Barbiturates Screen, Urine Negative Negative 12/04/2024 8:32 PM EDT [facility] Oxycodone Screen, Urine Negative Negative 12/04/2024 8:32 PM EDT [facility] Buprenorphine, Screen, Urine Negative Negative 12/04/2024 8:32 PM EDT [facility] Urine Urine specimen obtained by clean catch procedure / Unknown Collection / Unknown 12/04/2024 2:50 PM EDT 12/04/2024 2:54 PM EDT Narrative [facility] - 12/04/2024 8:32 PM EDT Cutoff [...] when unconfirmed results are used. us Vazquez Otilio JACOME-Lalit URINE ORDERABLES Final R esult [facility]
[address] [place] [address], documented in this encounter Visit Diagnoses Diagnosis Therapeutic drug monitoring Encounter for therapeutic drug monitoring documented in this encounter Additional Health Concerns Assessment Noted Time PHQ-2 Depression Total Score: 1 12/31/19 24 3:25 PM EDT documented as of this encounter Care Teams Marketing Compliance Manager Relationship Specialty Start Date End Date Enedina Mcguire APRN [address] [place] [address] PCP - General Nurse Practitioner 10/27/24 documented as of this encounter
--- OUTSIDE RECORDS SUMMARY | 2024-12-09 09:50 | XMS_ITS | Encounter Summary ---
Author Organization [facility] Address [address] [place] [address] Care Team Providers Care It Security Specialist Name Role Phone Enedina Mcguire NP Primary Care Provider + [phone] Maureen Pantoja RN Unavailable Unavail able Source [...] release of HIV test results or diagnoses. [id number] Health Encounter Details Date Type Department Care Team (Late st Contact Info) Description 12/09/2024 9:50 AM EDT Office Visit [facility] Liver Transplant at [place] [address] [address] [place] [address] Leisa Juarez MD [address] [place] [address] 2nd [place] [address] Kidney transplant recipient (Primary Dx); Immunosuppressive management encounter following liver transplant ([facility]); Hypomagnesemia; S/P liver transplant ([facility]); Hypertension, unspecified type; Hyperparathyroidism ([facility]) Social History Tobacco Use Types Packs/Day Years [...] liver (CMS-HCC) Esophageal varices (CMS-HCC) Hepatorenal syndrome ([facility]) Hypertension Other hyperlipidemia 07/26/2024 Renal cell carcinoma (CMS-HCC) Thrombocytopenia ([facility]) Thyroid disease Surgical History: Past Surgical History: [...] To Answer (07/14/2024) Received from [facility] [place] of Occupational Health - Occupational Stress Questionnaire [...] times a day. naloxone (NARCAN) 4 mg/actuation [place] Apply 1 spray in one nostril if [...] Results Component Value Date PTH 36.0 10/25/2024 [id number] 7.1 (L) 10/08/2024 Hemoglobin A1C: Lab Results [...] Discussed with Dr. Juarez. Lauren Santos, SAMSON, ADJUNCT HISTORY INSTRUCTOR, HEALTHCARE MANAGER- Transplant Nephrology [phone] Preferred contact: secure chat The HPI, ROS, [...] Primary Immunosuppressive management encounter following liver transplant ([facility]) Hypomagnesemia Disorders of magnesium metabolism S/P liver transplant ([facility]) Hypertension, unspecified type Hyperparathyroidism ([facility]) Hyperparathyroidism, unspecified documented in this encounter Additional Health Concerns Infection Onset Date Last Indicated Resolved Time 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
--- OUTSIDE RECORDS SUMMARY | 2024-12-09 10:20 | XMS_ITS | Encounter Summary ---
Author Organization [facility] Address [address] [place] [address] Care Team Providers Care Sandstone Splitter Name Role Phone Enedina Mcguire NP Primary Care Provider + [phone] Maureen Pantoja RN Unavailable Unavail able Source [...] release of HIV test results or diagnoses. [id number] Reason for Visit * Reason Comments Liver Transplant Follow-up Encounter Details Date Type Department Care Team (Late st Contact Info) Description 12/09/2024 10:20 AM EDT Office Visit [facility] Liver Transplant at [address] [address] Harvey Domínguez III, MD [address] [place] [address] Encounter for therapeutic drug monitoring (Primary [...] the past 12 months has th e [employer], [employer], oil, or water company threatened to shut [...] Nutrition: patient continues close f/u w/ transplant hull sorter. - Bone health: Vit D level to [...] documented as of this encounter Care Teams Sandstone Splitter Relationship Specialty Start Date End Date Enedina Mcguire NP [address] [place] [address] PCP - General Internal Medicine 10/05/24 Maureen Pantoja, ЮЛИЯ Txp Post Coordinator Transplant Hepatology 10/28/24 documented as of this encounter
--- OUTSIDE RECORDS SUMMARY | 2024-12-09 11:45 | XMS_ITS | Encounter Summary ---
Author Organization [facility] Address [address] [place] [address] Care Team Providers Care Juke Box Mechanic Name Role Phone Enedina Mcguire NP Primary Care Provider + [phone] Maureen Pantoja RN Unavailable Unavail able Source [...] release of HIV test results or diagnoses. [id number] Health Encounter Details Date Type Department Care Team (Late st Contact Info) Description 12/09/2024 11:45 AM EDT Office Visit [facility] Psychiatry Transplant at [place] [address] [phone] Rebekah Linares, [address] [place] [address] Alcohol use disorder (Primary Dx) [...] Recorded In the past 12 months has [employer], gas, oil, or water [employer] threatened to shut off services in your [...] no psychomotor abnormalities Cognition: short term and group home memory intact Attitude: cooperative Affect: full [...] documented as of this encounter Care Teams Juke Box Mechanic Relationship Specialty Start Date End Date Enedina Mcguire NP [address] [place] [address] PCP - General Internal Medicine 10/05/24 Maureen Pantoja, RN Txp Post Coordinator Transplant Hepatology 10/28/24 documented as of this encounter
--- OUTSIDE RECORDS SUMMARY | 2024-12-18 14:00 | XMS_ITS | Encounter Summary ---
Author Organization [facility] Address [address] [place] [address] Care Team Providers Care Tax Representative Name Role Phone Enedina Mcguire NP Primary Care Provider [phone] Maureen Pantoja RN Unavailable Unavail able Source [...] release of HIV test results or diagnoses. [id number] Reason for Visit * Auth/Cert (Routine) Specialty Diagnoses / Procedures Referred By Shane hernadez Referred To Contact Psychiatry [facility] Psychiatry Transplant at [address] [address] Phone: tel: fax: Referral ID Status Reason Start Date Expiration Date Visits Re quested Visits Authorized [id number] 1 1 Encounter Details Date Type Department Care Team (Late st Contact Info) Description 12/18/2024 2:00 PM EDT Office Visit [facility] Psychiatry Transplant at [address] [place] [phone] Craig Warren PsyD 3[address] [facility] [address] [place] [address] Alcohol use disorder (Primary Dx); [...] the past 12 months has th e [employer], [employer], oil, or water [employer] threatened to shut off services [...] alcohol and CKD IIIb/IV. Seen by this property underwriter for pre-surgical evaluation. PMH includes PTSD [...] AUD Plan: No follow up with this property underwriter indicated at this time Patient to [...] documented as of this encounter Care Teams Tax Representative Relationship Specialty Start Date End Date Enedina Mcguire NP [address] [place] [address] PCP - General Internal Medicine 10/05/24 Maureen Pantoja, ЮЛИЯ Txp Post Coordinator Transplant Hepatology 10/28/24 documented as of this encounter
--- OUTSIDE RECORDS SUMMARY | 2025-01-01 14:15 | XMS_ITS | Encounter Summary ---
Author Organization [facility] Address [address] [place] [address] Care Team Providers Care Document Control Supervisor Name Role Phone Enedina Mcguire APRN Primary Care Provider + Reason for Visit * Reason Comments Follow-up Neck Pain Back Pain Encounter Details Date Type Department Care Team (Late st Contact Info) Description 01/01/2025 2:15 PM EDT Office Visit [facility] PAIN MANAGEMENT [address] [phone] Vazquez Christie PA-C [address] [facility] [address] [place] [address] Cervical radiculopathy (Primary Dx); Long-term use of [...] 30 days sober on 08-05-[address] [facility] Utilities Answer Date Recorded In the past 12 months has [facility] [employer], gas, oil, or water [employer] threatened to shut off services in your [...] Score 0 10/02/2022 [facility] of Occupat ional Health - Occupational [...] GED or equivalent No 07/09/2024 Preferred Language Bulgarian 07/09/2024 PHQ-2 Answer Date Recorded Patient Health [...] liver transplant that took place at the [facility]. Patient does report he has not [...] Surgeon: Presley Montes De Oca MD; Location: [facility]OS[facility]; Service: Gastroenterology; Laterality: N/A; ENDOSCOPY N/A 07/29/2022 Procedure: ESOPHAGOGASTRODUODENOSCOPY; Surgeon: Presley Montes De Oca MD; Location: [facility] ENDOSCOPY; Service: Gastroenterology; Laterality: N/A; WITH APC [...] reviewed 10. Lifestyle goals: Follow-up 3 months [facility] Pain Management Vazquez Christie PA-C documented in this encounter Plan of Treatment Upcoming Encounters Date Type Department Care Team (Late st Contact Info) Description 04/02/2025 2:15 PM EST Office Visit [facility] PAIN MANAGEMENT [address] [phone] Vazquez Christie PA-C [address] [address] documented as of this encounter [...] documented as of this encounter Care Teams Document Control Supervisor Relationship Specialty Start Date End Date Enedina Mcguire APRN [address] [place] [address] PCP - General Nurse Practitioner 10/27/24 documented as of this encounter
--- OUTSIDE RECORDS SUMMARY | 2025-01-06 08:20 | XMS_ITS | Encounter Summary ---
Author Organization [facility] Address [address] [place] [address] Care Team Providers Care Tree Fruit And Nut Crops Farmer Name Role Phone Enedina Mcguire NP Primary Care Provider + [phone] Maureen Pantoja RN Unavailable Unavail able Source [...] release of HIV test results or diagnoses. [id number] Reason for Visit * Reason Comments Liver Transplant Follow-up Encounter Details Date Type Department Care Team (Late st Contact Info) Description 01/06/2025 8:20 AM EDT Office Visit [facility] Liver Transplant at [address] [address] Cosmo Pacheco MD [address] [place] [address] [place] [address] Mahad Alonzo MD [facility]9 [place] [address] S/P liver transplant (CMS-HCC) (Primary [...] the past 12 months has th e [employer], gas, oil, or water company threatened [...] Nutrition: patient continues close f/u w/ transplant medical billing and coding instructor. - Bone health: Vit D level to be drawn ~POD#90. - Labs: Labs (CBC w/ diff, renal panel, liver panel, tacro level) weekly. Lipid panel, HgbA1C and Vit D level to be drawn at POD#90, HgbA1C and Vit D level to be drawn at POD#180. - Follow up: RTC 1 month Mahad Alonzo MD Transplant Surgery [phone] [1] Allergies Allergen Reactions Adhesive Itching and [...] Confirmation, B Lab Routine S/P liver transplant ([facility]) Immunosuppression ([facility]) Kidney transplant recipient Alcohol use disorder weekly for 67 Occurrences starting 01/06/2025 until 07/21/2025 documented as of this encounter Visit Diagnoses Diagnosis S/P liver transplant ([facility] Primary Immunosuppression ([facility]) Kidney transplant recipient Alcohol use disorder documented in this encounter Additional Health Concerns Infection Onset Date Last Indicated Resolved Time 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
--- OUTSIDE RECORDS SUMMARY | 2025-01-06 09:30 | XMS_ITS | Encounter Summary ---
Author Organization [facility] Address [facility] [place] [address] Care Team Providers Care Cone Classifier Tender Name Role Phone Enedina Mcguire NP Primary Care Provider + [phone] Maureen Pantoja RN Unavailable Unavail able Source [...] release of HIV test results or diagnoses. [id number] Health Encounter Details Date Type Department Care Team (Late st Contact Info) Description 01/06/2025 9:30 AM EDT Office Visit [facility] Liver Transplant at [place] [address] [place] [address] Leisa Juarez MD [address] [place] [address] 2nd [place] [address] Kidney transplant recipient (Primary Dx); Hypomagnesemia; Hyperphosphatemia Social History Tobacco Use Types Packs/Day Years [...] th e electric, gas, oil, or water [employer] threatened to shut off services in your [...] magnesium metabolism Hyperphosphatemia Disorders of phosphorus metabolism documented in this encounter Additional Health Concerns Infection Onset Date Last Indicated Resolved Time 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
--- OUTSIDE RECORDS SUMMARY | 2025-01-09 12:20 | XMS_ITS | Encounter Summary ---
Author Organization [facility] Address [address] [place] [address] Care Team Providers Care Landscaping Manager Name Role Phone Enedina Mcguire NP Primary Care Provider + [phone] Alicia Rankin RN Unavailable Unavail able Source [...] release of HIV test results or diagnoses. [id number] Health Encounter Details Date Type Department Care Team (Late st Contact Info) Description 12/02/2024 Telephone [facility] Liver Transplant at [address] [address] Mitzy Gill MA Social History [...] In the past 12 months has e [employer], gas, oil, or water company threatened to [...] advised he is almost out of FK. [facility] is working on getting an overnight shipment out to Pt but needs to confirm dosing on script. Sharda also brought the Pt on the line with us. I confirmed we have a prescription that was written on 11/25/24 but it was sent to [facility], not [facility]. Pt states he would like it re-routed to [facility] so they can get this out to him. I advised Pt and Sharda that I would have prescription updated and routed to [facility]. No further needs atthis time. documented [...] as of this encounter Care Teams Landscaping Manager Relationship Specialty Start Date End Date Enedina Mcguire NP [address] [place] [address] PCP - General Internal Medicine 10/05/24 Alicia Rankin, ЮЛИЯ Txp Post Coordinator Transplant Hepatology 10/28/24 documented as of this encounter
--- OUTSIDE RECORDS SUMMARY | 2025-01-09 12:20 | XMS_ITS | Encounter Summary ---
Author Organization [facility] Address [address] [place] [address] Care Team Providers Care Library Serials Assistant Name Role Phone Enedina Mcguire NP Primary Care Provider + [phone] Maureen Pantoja RN Unavailable Unavail able Source [...] release of HIV test results or diagnoses. [id number] Health Encounter Details Date Type Department Care Team (Late st Contact Info) Description 12/01/2024 Telephone [facility] Liver Transplant at [address] [place] [address] Gladis Chisholm MA Social History Tobacco [...] Recorded In the past 12 months has [employer], gas, oil, or water [employer] threatened to shut off services in your [...] have tried to fax his orders through [employer] but was unsuccessful. The plan is to send him a copy via but wanted confirmation that he had a way to print them out. * Gladis Chisholm MA - 12/01/2024 3:08 PM EDT Pt called to request that an order for a urinalysis be put in for him to get done at [facility]. Please advise. documented in this [...] documented as of this encounter Care Teams Library Serials Assistant Relationship Specialty Start Date End Date Enedina Mcguire NP [address] [place] [address] PCP - General Internal Medicine 10/05/24 Maureen Pantoja, RN Txp Post Coordinator Transplant Hepatology 10/28/24 documented as of this encounter
--- OUTSIDE RECORDS SUMMARY | 2025-01-09 12:20 | XMS_ITS | Encounter Summary ---
Author Organization [facility] Address [address] [place] [address] Care Team Providers Care Driver Recruiter Name Role Phone Enedina Mcguire NP Primary Care Provider + [phone] Maureen Pantoja RN Unavailable Unavail able Source [...] release of HIV test results or diagnoses. [id number] Reason for Visit * Reason Comments Results Encounter Details Date Type Department Care Team (Riky st Contact Info) Description 11/27/2024 Telephone [facility] Liver Transplant at [address] [address] Maureen Pantoja, RN Results [...] In the past 12 months has e [employer], gas, oil, or water [employer] threatened to shut off services in your [...] as of this encounter Care Teams Driver Recruiter Relationship Specialty Start Date End Date Enedina Mcguire NP [address] [place] [address] PCP - General Internal Medicine 10/05/24 Maureen Pantoja, ЮЛИЯ Txp Post Coordinator Transplant Hepatology 10/28/24 documented as of this encounter
--- OUTSIDE RECORDS SUMMARY | 2025-01-09 12:20 | XMS_ITS | Encounter Summary ---
Author Organization [facility] Address [address] [place] [address] Care Team Providers Care Cloud Engagement Partner Name Role Phone Enedina Mcguire NP Primary Care Provider + [phone] Marueen Pantoja RN Unavailable Unavail able Source Comments [...] release of HIV test results or diagnoses. [id number] Health Encounter Details Date Type Department Care Team (Late st Contact Info) Description 12/03/2024 Chart Note [facility] Liver Transplant at [address] [place] [address] Marlene Ro MA Social History Tobacco Use [...] Recorded In the past 12 months has [employer], gas, oil, or water [employer] threatened to shut off services in [...] 5.0 g/dL Blood Narrative Resulting Agency Comment [facility] Result [facility] Provider LAB BLOOD ORDERABLES Denisse l Result * Creatinine, urine, random (12/02/2024 8:01 AM EDT) Creatinine, Urine 48 Urine Narrative Resulting Agency Comment [facility] Result [facility] Provider URINE ORDERABLES Final Re sult * Urinalysis w/Rfl to Microscopic (12/02/2024 8:01 AM EDT) Glucose, UA Negative Negative Ketones, UA Negative Negative Blood, UA Negative Negative Bilirubin, UA Negative Negative Urobilinogen, UA Normal Normal Protein, UA Negative Negative Leukocyte Esterase, UA Negative Negative pH, UA 6.0 4.5 - 8.0 Specific [place], UA 1.010 1.005 - 1.030 Clarity, UA Clear Clear Color, UA Yellow Light Yellow, Yellow Urine Narrative Resulting Agency Comment [facility] Result [facility] Provider URINE ORDERABLES Final Re sult [...] 6.0 10^3/mL Blood Narrative Resulting Agency Comment [facility] Provider LAB BLOOD ORDERABLES Denisse l Result * Urine Protein, Tot, Random (w/o Creat) (12/02/2024 8:01 AM EDT) Total Protein, Ur 10.0 Urine Narrative Resulting Agency Comment [facility] Result [facility] Provider URINE ORDERABLES Final Re sult * (ABNORMAL) Hepatic Function Panel (12/02/2024 8:01 AM EDT) Bilirubin, Direct 0.5 Bilirubin, Indirect 0.2 Alkaline Phosphatase 109 U/L ALT 16 U/L AST 15 U/L Total Bilirubin 0.7 0.1 - 1.4 mg/dL Total Protein 6.0(A) 6.4 - 8.2 g/dL Plasma Narrative Resulting Agency Comment [facility] Result [facility] Provider LAB BLOOD ORDERABLES Denisse l Result documented in this encounter Visit Diagnoses Not on filedocumented in this encounter Additional Health Concerns Infection Onset Date Last Indicated Resolved Time 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
--- OUTSIDE RECORDS SUMMARY | 2025-01-09 12:20 | XMS_ITS | Encounter Summary ---
Author Organization [facility] Address [address] [place] [address] Care Team Providers Care Strategic Manager Name Role Phone Enedina Mcguire NP Primary Care Provider + [phone] Maureen Pantoja RN Unavailable Unavail able Source [...] release of HIV test results or diagnoses. [id number] Health Encounter Details Date Type Department Care Team (Late st Contact Info) Description 11/27/2024 Chart Note [facility] Liver Transplant at [address] [place] [phone] Marlene Ro MA FK Pending 11/27 Labs [...] In the past 12 months has e [employer], gas, oil, or water [employer] MD threatened to shut off services in your [...] Resulting Agency Comment [facility] Result [facility] Provider LAB BLOOD ORDERABLES Denisse l Result * Protime-INR (11/27/2024 7:50 AM EDT) Pathologist [facility] INR 0.93 0.9 - 1.1 Plasma Narrative Resulting Agency Comment [facility] Result [facility] Provider LAB BLOOD ORDERABLES Denisse l Result * (ABNORMAL) CBC and differential (11/27/2024 7:50 AM EDT) [facility] Hemoglobin 10.2(A) 13.5 - 17.5 [...] 6.6 10^3/mL Blood Narrative Resulting Agency Comment [facility] Result [facility] Provider LAB BLOOD ORDERABLES Denisse l Result * Hepatic Function Panel (11/27/2024 7:50 AM EDT) Pathologist [facility] Bilirubin, Direct 0.4 Bilirubin, Indirect 0.1 Alkaline [...] documented as of this encounter Care Teams Strategic Manager Relationship Specialty Start Date End Date Enedina Mcguire NP [address] [place] [address] PCP - General Internal Medicine 10/05/24 Maureen Pantoja, RN Txp Post Coordinator Transplant Hepatology 10/28/24 documented as of this encounter
--- OUTSIDE RECORDS SUMMARY | 2025-01-09 12:21 | XMS_ITS | Encounter Summary ---
Author Organization [facility] Address [address] [place] [address] Care Team Providers Care Manager Underwriting Name Role Phone Enedina Mcguire NP Primary Care Provider + [phone] Maureen Pantoja RN Unavailable Unavail able Source [...] release of HIV test results or diagnoses. [id number] Reason for Visit * Reason Comments Medication Management Requesting RX for New Medication Encounter Details Date Type Department Care Team (Late st Contact Info) Description 10/21/2024 Telephone [facility]ology at [facility] [address] [place] [address] Gerri Peterson MD [address] [place] [address] Medication Management (Requesting RX for [...] In the past 12 months has th [employer], oil, or [employer] threatened to shut off services [...] called. States he was discharged from [facility] on 10/17 with instructions to contact PCP to start Rx Torsemide 20 mg one tablet a day. PCP is out of town and was advised by senior software manager in office to contact gastro MD to obtain Rx. Pt states he is retaining 30 pounds of fluid and needs MD to send a prescription or return call dali. Pt can be reached at [phone] documented in this encounter Plan of [...] as of this encounter Care Teams Manager Underwriting Relationship Specialty Start Date End Date Enedina Mcguire NP [address] [place] [address] PCP - General Internal Medicine 10/05/24 Maureen Pantoja, RN Txp Post Coordinator Transplant Hepatology 10/28/24 documented as of this encounter
--- OUTSIDE RECORDS SUMMARY | 2025-01-09 12:21 | XMS_ITS | Encounter Summary ---
Author Organization [facility] Address [address] [place] [address] Care Team Providers Care Crm Campaign Manager Name Role Phone Enedina Mcguire NP Primary Care Provider + [phone] Maureen Pantoja RN Unavailable Unavail able Source [...] release of HIV test results or diagnoses. [id number] Health Encounter Details Date Type Department Care Team (Late st Contact Info) Description 11/10/2024 Orders Only [facility] Liver Transplant at [address] [place] [phone] Maureen Pantoja, ЮЛИЯ Liver transplant recipient ([facility]-HCC) (Primary Dx); Kidney transplant recipient; Immunosuppressive management encounter following liver transplant ([facility]-H[facility]) Social History Tobacco Use Types Packs/Day Years Used Date Smoking Tobacco: Former Cigarettes Smokeless Tobacco: Current Alcohol Use Standard Drinks/Week Comments Yes 0 (1 standard drink = 0.6 oz pure alcohol) History of alcohol abuse, reports no use in 3 week- typically endorses use as 4 glasses of wine a days Utilities Answer Date Recorded In the past 12 months has [employer], gas, oil, or water [employer] threatened to shut off services in your [...] documented as of this encounter Care Teams Crm Campaign Manager Relationship Specialty Start Date End Date Enedina Mcguire NP [address] [place] [address] PCP - General Internal Medicine 10/05/24 Maureen Pantoja RN Txp Post Coordinator Transplant Hepatology 10/28/24 documented as of this encounter
--- OUTSIDE RECORDS SUMMARY | 2025-01-09 12:24 | XMS_ITS | Encounter Summary ---
Author Organization [facility] Address [address] [place] [address] Care Team Providers Care Examination Grader Name Role Phone Enedina Mcguire NP Primary Care Provider + [phone] Maureen Pantoja RN Unavailable Unavail able Source [...] release of HIV test results or diagnoses. [id number] Reason for Visit * Reason Comments Medication Refill Refill Request 1st A ttempt Encounter Details Date Type Department Care Team (Late st Contact Info) Description 10/20/2024 Refill [facility] Gastroenterology at [facility] Office [address] [place] [phone] Gerri Peterson MD [address] [place] [address] Social History Tobacco Use [...] Recorded In the past 12 months has [employer], gas, oil, or water [employer] threatened to shut off services in [...] filled today. PHARMACY & PHONE #: [facility] [address] [place], [place] [address] [address] DATE OF LAST APPT: 09/02/2024 Gerri Peterson [...] documented as of this encounter Care Teams Examination Grader Relationship Specialty Start Date End Date Enedina Mcguire NP [address] [place] [address] PCP - General Internal Medicine 10/05/24 Maureen Pantoja, RN Txp Post Coordinator Transplant Hepatology 10/28/24 documented as of this encounter
--- OUTSIDE RECORDS SUMMARY | 2025-01-09 12:24 | XMS_ITS | Encounter Summary ---
Author Organization [facility] Address [address] [place] [address] Care Team Providers Care A&P Technician Name Role Phone Enedina Mcguire NP Primary Care Provider + [phone] Maureen Pantoja RN Unavailable Unavail able Source [...] release of HIV test results or diagnoses. [id number] Health Encounter Details Date Type Department Care Team (Late st Contact Info) Description 11/25/2024 Social Work [facility] Liver Transplant at [address] [place] [phone] Kaylin [place] MSW Social History Tobacco Use [...] Recorded In the past 12 months has [employer], gas, oil, or water [employer] threatened to shut off services in your [...] AM 09/29/2024 11:00 AM 11/25/2024 3:00 PM [id number] Score MAGALYS-7 Total Score 17 13 4 Scores are not concerning for depression/anxiety. No further SW needs identified. 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
--- OUTSIDE RECORDS SUMMARY | 2025-01-09 12:24 | XMS_ITS | Encounter Summary ---
Author Organization [facility] Address [address] [place] [address] Care Team Providers Care Director Environmental Name Role Phone Enedina Mcguire NP Primary Care Provider + [phone] Maureen Pantoja RN Unavailable Unavail able Source [...] release of HIV test results or diagnoses. [id number] Reason for Visit * Reason Comments Results Encounter Details Date Type Department Care Team (Riky st Contact Info) Description 11/11/2024 Telephone [facility] Liver Transplant at [address] [address] Maureen Pantoja, RN Results Social [...] In the past 12 months has e [employer], gas, oil, or water [employer] threatened to shut off services in your [...] of this encounter Progress Notes * Maureen aPntoja RN - 11/11/2024 4:17 PM EDT Reviewed [...] as of this encounter Care Teams Director Environmental Relationship Specialty Start Date End Date Enedina Mcguire NP [address] [place] [address] PCP - General Internal Medicine 10/05/24 Maureen Pantoja, RN Txp Post Coordinator Transplant Hepatology 10/28/24 documented as of this encounter
--- OUTSIDE RECORDS SUMMARY | 2025-01-09 12:24 | XMS_ITS | Encounter Summary ---
Author Organization [facility] Address [address] [place] [address] Care Team Providers Care Media Technician Name Role Phone Enedina Mcguire NP Primary Care Provider + [phone] Maureen Pantoja RN Unavailable Unavail able Source [...] release of HIV test results or diagnoses. [id number] Reason for Visit * Reason Comments Results Encounter Details Date Type Department Care Team (Late st Contact Info) Description 11/07/2024 Telephone [facility] Liver Transplant at [address] [address] Maureen Pantoja, RN Results Social [...] In the past 12 months has e [employer], gas, oil, or water [employer] threatened to shut off services in your [...] documented as of this encounter Care Teams Media Technician Relationship Specialty Start Date End Date Enedina Mcguire NP [address] [place] [address] PCP - General Internal Medicine 10/05/24 Maureen Pantoja, RN Txp Post Coordinator Transplant Hepatology 10/28/24 documented as of this encounter
--- OUTSIDE RECORDS SUMMARY | 2025-01-09 12:24 | XMS_ITS | Encounter Summary ---
Author Organization [facility] Address [address] [place] [address] Care Team Providers Care Section Repairer Name Role Phone Enedina Mcguire NP Primary Care Provider + [phone] Maureen Pantoja RN Unavailable Unavail able Source [...] release of HIV test results or diagnoses. [id number] Health Encounter Details Date Type Department Care Team (Late st Contact Info) Description 12/04/2024 Telephone [facility] Liver Transplant at [address] [address] Marlene Ro MA Social History [...] Recorded In the past 12 months has [employer], gas, oil, or water [employer] threatened to shut off services in [...] I transferred the call andadvised pt to [facility] if no answer. He called again [...] documented as of this encounter Care Teams Section Repairer Relationship Specialty Start Date End Date Enedina Mcguire NP [address] [place] [address] PCP - General Internal Medicine 10/05/24 Maureen Pantoja, RN Txp Post Coordinator Transplant Hepatology 10/28/24 documented as of this encounter
--- OUTSIDE RECORDS SUMMARY | 2025-01-09 12:24 | XMS_ITS | Encounter Summary ---
Author Organization [facility] Address [address] [place] [address] Care Team Providers Care Senior Network Engineer Name Role Phone Enedina Mcguire NP Primary Care Provider + [phone] Maureen Pantoja RN Unavailable Unavail able Source [...] release of HIV test results or diagnoses. [id number] Health Encounter Details Date Type Department Care Team (Late st Contact Info) Description 11/07/2024 Chart Note [facility] Liver Transplant at [address] [place] [phone] Marlene Ro MA FK Pending Social History [...] Recorded In the past 12 months has [employer], gas, oil, or water [employer] threatened to shut off services in your [...] 5.0 g/dL Blood Narrative Resulting Agency Comment [facility] Historical Provider LAB BLOOD ORDERABLES Denisse [...] 7.5 10^3/mL Blood Narrative Resulting Agency Comment [facility] Historical Provider LAB BLOOD ORDERABLES Denisse l Result * (ABNORMAL) Hepatic Function Panel (11/06/2024 8:36 AM EDT) Pathologist [facility] Bilirubin, Direct 0.7 Bilirubin, Indirect 0.2 Alkaline Phosphatase 142 U/L ALT 59 U/L AST 24 U/L Total Bilirubin 0.9 0.1 - 1.4 mg/dL Total Protein 5.4(A) 6.4 - 8.2 g/dL Plasma Narrative Resulting Agency Comment [facility] Historical Provider LAB BLOOD ORDERABLES Denisse l Result documented in this encounter Visit Diagnoses Not on filedocumented in this encounter Additional Health Concerns Infection Onset Date Last Indicated Resolved Time 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
--- OUTSIDE RECORDS SUMMARY | 2025-01-09 12:25 | XMS_ITS | Encounter Summary ---
Author Organization [facility] Address [address] [place] [address] Care Team Providers Care Service Coordinator Elderly Facility Name Role Phone Enedina Mcguire NP Primary Care Provider + [phone] Maureen Pantoja RN Unavailable Unavail able Source [...] release of HIV test results or diagnoses. [id number] Health Encounter Details Date Type Department Care Team (Late st Contact Info) Description 12/04/2024 Chart Note [facility] Liver Transplant at [address] [place] [phone] Marlene Ro MA FK Pending-12/04 Social History [...] In the past 12 months has e [employer], gas, oil, or water [employer] threatened to shut off services in your [...] level (12/04/2024 7:47 AM EDT) Pathologist [facility] Tacrolimus Lvl 7.5 6 - 15 ng/mL Whole Blood Narrative Resulting Agency Comment [facility] Historical Provider LAB BLOOD ORDERABLES Denisse l Result * (ABNORMAL) Magnesium (12/04/2024 7:47 AM EDT) Pathologist [facility] Magnesium 1.2(A) 1.6 - 2.4 mg/dL [...] Comment [facility] Result [facility] MD LAB BLOOD ORDERABLES Denisse l Result * Protime-INR (12/04/2024 7:47 AM EDT) [facility] INR 0.99 0.9 - 1.1 Plasma Narrative Resulting Agency Comment [facility] Result [facility] LAB BLOOD ORDERABLES Denisse l Result * (ABNORMAL) CBC and differential (12/04/2024 7:47 AM EDT) [facility] Hemoglobin 10.7(A) 13.5 - 17.5 g/dL [...] 6.5 10^3/mL Blood Narrative Resulting Agency Comment [facility] Result [facility] LAB BLOOD ORDERABLES Denisse l Result * (ABNORMAL) Hepatic Function Panel (12/04/2024 7:47 AM EDT) [facility] Bilirubin, Direct 0.5 Bilirubin, Indirect 0.2 [...] as of this encounter Care Teams Service Coordinator Elderly Facility Relationship Specialty Start Date End Date Enedina Mcguire NP [address] [place], [place] [phone] PCP - General Internal Medicine 10/05/24 Maureen Pantoja, ЮЛИЯ Txp Post Coordinator Transplant Hepatology 10/28/24 documented as of this encounter
--- OUTSIDE RECORDS SUMMARY | 2025-01-09 12:25 | XMS_ITS | Encounter Summary ---
Author Organization [facility] Address [address] [place] [address] Care Team Providers Care Slate Roofer Helper Name Role Phone Enedina Mcguire NP Primary Care Provider + [phone] Maureen Pantoja RN Unavailable Unavail able Source [...] release of HIV test results or diagnoses. [id number] Health Encounter Details Date Type Department Care Team (Late st Contact Info) Description 11/24/2024 Orders Only [facility] Liver Transplant at [address] [place] [address] Maureen Pantoja, RN Social History Tobacco Use [...] Recorded In the past 12 months has [employer], gas, oil, or water [employer] threatened to shut off services in your [...] documented as of this encounter Care Teams Slate Roofer Helper Relationship Specialty Start Date End Date Enedina Mcguire NP [address] [place] [address] PCP - General Internal Medicine 10/05/24 Maureen Pantoja, ЮЛИЯ Txp Post Coordinator Transplant Hepatology 10/28/24 documented as of this encounter
--- OUTSIDE RECORDS SUMMARY | 2025-01-09 12:25 | XMS_ITS | Encounter Summary ---
Author Organization [facility] Address [address] [place] [address] Care Team Providers Care Senior Paralegal Name Role Phone Enedina Mcguire NP Primary Care Provider + [phone] Maureen Pantoja RN Unavailable Unavail able Source [...] release of HIV test results or diagnoses. [id number] Reason for Visit * Reason Comments Results Encounter Details Date Type Department Care Team (Riky st Contact Info) Description 11/21/[address] [facility] Liver Transplant at [address] [phone] Maureen Pantoja, RN Results Social [...] In the past 12 months has e [employer], gas, oil, or water [employer] threatened to shut off services in [...] as of this encounter Care Teams Senior Paralegal Relationship Specialty Start Date End Date Enedina Mcguire NP [address] [place] [address] PCP - General Internal Medicine 10/05/24 Maureen Pantoja, RN Txp Post Coordinator Transplant Hepatology 10/28/24 documented as of this encounter
--- OUTSIDE RECORDS SUMMARY | 2025-01-09 12:25 | XMS_ITS | Encounter Summary ---
Author Organization [facility] Address [address] [place] [address] Care Team Providers Care Motion Study Technician Name Role Phone Enedina Mcguire NP Primary Care Provider + [phone] Maureen Pantoja RN Unavailable Unavail able Source [...] release of HIV test results or diagnoses. [id number] Health Encounter Details Date Type Department Care Team (Late st Contact Info) Description 11/21/2024 Orders Only [facility] [address] [facility] [address] [place] [address] Vasile Gordillo MA Social History [...] Recorded In the past 12 months has [employer], gas, oil, or water [employer] threatened to shut off services in your [...] documented as of this encounter Care Teams Motion Study Technician Relationship Specialty Start Date End Date Enedina Mcguire NP [address] [place] [address] PCP - General Internal Medicine 10/05/24 Maureen Pantoja, ЮЛИЯ Txp Post Coordinator Transplant Hepatology 10/28/24 documented as of this encounter
--- OUTSIDE RECORDS SUMMARY | 2025-01-09 12:25 | XMS_ITS | Encounter Summary ---
Author Organization [facility] Address [address] [place] [address] Care Team Providers Care Academic Services Professional Name Role Phone Enedina Mcguire NP Primary Care Provider + [phone] Maureen Pantoja RN Unavailable Unavail able Source [...] release of HIV test results or diagnoses. [id number] Reason for Visit * Reason Comments Results Encounter Details Date Type Department Care Team (Riky st Contact Info) Description 12/04/2024 Telephone [facility] Liver Transplant at [address] [phone] Maureen Pantoja, RN Results Social [...] In the past 12 months has e [employer], gas, oil, or water [employer] threatened to shut off services in [...] Patient to repeat labs tomorrow at [facility] Lab prior to Liver and Hepatorenal [...] as of this encounter Care Teams Academic Services Professional Relationship Specialty Start Date End Date Enedina Mcguire NP [address] [place] [address] PCP - General Internal Medicine 10/05/24 Maureen Pantoja, RN Txp Post Coordinator Transplant Hepatology 10/28/24 documented as of this encounter
--- OUTSIDE RECORDS SUMMARY | 2025-01-09 12:25 | XMS_ITS | Encounter Summary ---
Author Organization [facility] Address [address] [place] [address] Care Team Providers Care Urban Planning Teacher Name Role Phone Enedina Mcguire NP Primary Care Provider + [phone] Maureen Pantoja RN Unavailable Unavail able Source [...] release of HIV test results or diagnoses. [id number] Health Encounter Details Date Type Department Care Team (Late st Contact Info) Description 12/04/2024 Telephone [facility] Liver Transplant at [address] [place] [phone] Kaylin Willard MSW Social History Tobacco [...] Recorded In the past 12 months has [employer], gas, oil, or water [employer] threatened to shut off services in your [...] prior to transplant and completed treatment with [facility]. SW called and spoke to [...] meets with a counselor weekly and an NYLON MENDER. He has spoke with his NYLON MENDER and is interested in Naltrexone to help reduce cravings. He will require a letter from our teamto confirm he is able to take Naltrexone, SW to coordinate with RN coordinator. SW reviewed concerns for alcohol use post-transplant and patient was aware and agreeable. Patient to meet with MEREDITH and transplant CD counselor at next clinic appointment for additional support/follow-up. 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
[2025-01-09 12:26] LABS: Microscopic, Urine URINE MICROSCOPIC (MICROSCOPIC)
--- OUTSIDE RECORDS SUMMARY | 2025-01-09 12:26 | XMS_ITS | Encounter Summary ---
Author Organization [facility] Address [address] [place] [address] Care Team Providers Care Electric Scoop Operator Name Role Phone Enedina Mcguire NP Primary Care Provider + [phone] Maureen Pantoja RN Unavailable Unavail able Source [...] release of HIV test results or diagnoses. [id number] Health Encounter Details Date Type Department Care Team (Late st Contact Info) Description 11/21/2024 Chart Note [facility] Liver Transplant at [address] [place] [phone] Marlene Ro MA FK: 11/18 & 11/20 [...] Recorded In the past 12 months has [employer], gas, oil, or water [employer] threatened to shut off services in your [...] Tacrolimus level (11/20/2024 8:00 AM EDT) Pathologist [facility] Tacrolimus Lvl 11.5 6 - 15 ng/mL [...] 5.0 g/dL Blood Narrative Resulting Agency Comment [facility] Historical Provider LAB BLOOD ORDERABLES Denisse l [...] 6.4 10^3/mL Blood Narrative Resulting Agency Comment [facility] Historical Provider LAB BLOOD ORDERABLES Denisse l Result * Hepatic Function Panel (11/20/2024 8:00 AM EDT) Bilirubin, Direct 0.4 Bilirubin, Indirect 0.1 Alkaline Phosphatase 285 U/L ALT 60 U/L AST 25 U/L Total Bilirubin 0.5 0.1 - 1.4 mg/dL Total Protein 6.4 6.4 - 8.2 g/dL Plasma Narrative Resulting Agency Comment [facility] Result [facility] MD LAB BLOOD ORDERABLES Denisse l Result * Tacrolimus level (11/18/2024 7:45 AM EDT) Pathologist [facility] Tacrolimus Lvl 12.5 6 - 15 ng/mL Whole Blood Result [facility] MD LAB BLOOD ORDERABLES Denisse l Result * (ABNORMAL) Hepatic Function Panel (11/18/2024 7:45 AM EDT) [facility] Bilirubin, Direct 0.5 Bilirubin, Indirect 0.1 Alkaline Phosphatase 189 U/L ALT 41 U/L AST 23 U/L Total Bilirubin 0.6 0.1 - 1.4 mg/dL Total Protein 6.1(A) 6.4 - 8.2 g/dL Plasma Narrative Resulting Agency Comment [facility] Result [facility] LAB BLOOD ORDERABLES Denisse l Result * (ABNORMAL) Renal Function Panel w/o EGFR (11/18/2024 7:45 AM EDT) [facility] Glucose 100 mg/dL BUN 43(A) 4 [...] 5.0 g/dL Blood Narrative Resulting Agency Comment [facility] Result [facility] MD LAB BLOOD ORDERABLES Denisse l Result * (ABNORMAL) CBC and differential (11/18/2024 7:45 AM EDT) [facility] Hemoglobin 10.2(A) 13.5 - 17.5 [...] 6.0 10^3/mL Blood Narrative Resulting Agency Comment [facility] us Historical Provider LAB BLOOD ORDERABLES Denisse l Result documented in this encounter Visit Diagnoses Not on filedocumented in this encounter Additional Health Concerns Infection Onset Date Last Indicated Resolved Time 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
--- OUTSIDE RECORDS SUMMARY | 2025-01-09 12:27 | XMS_ITS | Encounter Summary ---
Author Organization [facility] Address [address] [place] [address] Care Team Providers Care Reheater Name Role Phone Enedina Mcguire NP Primary Care Provider + [phone] Maureen Pantoja RN Unavailable Unavail able Source [...] release of HIV test results or diagnoses. [id number] Health Encounter Details Date Type Department Care Team (Late st Contact Info) Description 01/05/2025 Chart Note [facility] Liver Transplant at [address] [place] [phone] Marlene Ro MA 01/05 Labs entered from [facility] Social History Tobacco Use Types Packs/Day Years Used Date Smoking Tobacco: Former Cigarettes Smokeless Tobacco: Current Alcohol Use Standard Drinks/Week Comments Yes 0 (1 standard drink = 0.6 oz pure alcohol) History of alcohol abuse, reports no use in 3 week- typically endorses use as 4 glasses of wine a days Utilities Answer Date Recorded In the past 12 months has e [employer], gas, oil, or water [employer] threatened to shut off services in your [...] Progress Notes * Marlene Ro MA - 01/05/2025 12:40 PM EDT Images from the original note were not included. 01/05 Labs entered from [facility] documented in this encounter Plan of Treatment Not on file documented as of this encounter Procedures Procedure Name Priority Date/Time Associated Diagnosis Comments URINE PROTEIN, TOTAL, RANDOM (W/O CREATININE) Routine 01/05/2025 9:27 AM EDT BK VIRUS QUANTITATIVE BY PCR, BLOOD Routine 01/05/2025 9:27 AM EDT HEPATIC FUNCTION PANEL Routine 01/05/2025 9:27 AM EDT TACROLIMUS LEVEL Routine 01/05/2025 9:27 AM EDT CREATININE, URINE, RANDOM Routine 01/05/2025 9:27 AM EDT URINALYSIS W/RFL TO MICROSCOPIC Routine 01/05/2025 9:27 AM EDT CBC AND DIFFERENTIAL Routine 01/05/2025 9:27 AM EDT URINE CULTURE Routine 01/05/2025 9:27 AM EDT MAGNESIUM Routine 01/05/2025 9:27 AM EDT RENAL FUNCTION PANEL W/O EGFR Routine 01/05/2025 9:27 AM EDT documented in this encounter Results * Tacrolimus level (01/05/2025 9:27 AM EDT) Tacrolimus Lvl 12.6 6 - 15 ng/mL Whole Blood Historical Provider LAB BLOOD ORDERABLES Denisse l Result * BK Virus Quantitative by PCR, Blood (01/05/2025 9:27 AM EDT) Pathologist [facility] BK Virus Quant PCR PL Negative Plasma Result [facility] LAB BLOOD ORDERABLES Denisse l Result * Urine culture (01/05/2025 9:27 AM EDT) Pathologist [facility] Urine Culture, Comprehensive no growth URINE SPECIMEN / Unknown Result [facility] MICROBIOLOGY - GENERAL OR DERABLES Final Result * (ABNORMAL) Magnesium (01/05/2025 9:27 AM EDT) [facility] Magnesium 1.0(A) 1.6 - 2.4 mg/dL Plasma Narrative Resulting Agency Comment [facility] Result [facility] LAB BLOOD ORDERABLES Denisse l Result * (ABNORMAL) Renal Function Panel w/o EGFR (01/05/2025 9:27 AM EDT) [facility] Glucose 98 BUN 19 CO2 29(A) 13 - 22 mmol/L Creatinine 1.10 Potassium 4.0 Sodium 140 Chloride 101 Phosphorus 5.4(A) 2.5 - 4.9 mg/dL Calcium 9.7 EGFR 89 mg/dL Albumin 4.8 3.5 - 5.0 g/dL Blood Narrative Resulting Agency Comment [facility] Result [facility] LAB BLOOD ORDERABLES Denisse l Result * Creatinine, urine, random (01/05/2025 9:27 AM EDT) Pathologist [facility] Creatinine, Urine 80 Urine Narrative Resulting Agency Comment K[facility] Result [facility] URINE ORDERABLES Final Re sult * Urinalysis w/Rfl to Microscopic (01/05/2025 9:27 AM EDT) Pathologist [facility] Glucose, UA Negative Negative Ketones, UA Negative Negative Blood, UA Negative Negative Bilirubin, UA Negative Negative Urobilinogen, UA Normal Normal Protein, UA Negative Negative Nitrite, UA Negative Negative pH, UA 6.0 4.5 - 8.0 Specific [place], UA 1.015 1.005 - 1.030 Clarity, UA Clear Clear Color, UA Yellow Light Yellow, Yellow Urine Narrative Resulting Agency Comment [facility] Result [facility] Provider URINE ORDERABLES Final Re sult * (ABNORMAL) CBC and differential (01/05/2025 9:27 AM EDT) [facility] Hemoglobin 11.9(A) 13.5 - 17.5 g/dL Hematocrit 35.6(A) 41 - 53 % RDW 15.0(A) 11.5 - 14.5 % Lymphocytes Absolute 0.9 / L Monocytes Absolute 0.1 / L Eosinophils Absolute 0.0 / L Basophils Absolute 0.0 / L Neutrophils Relative 50.7 46 - 78 % Lymphocytes Relative 39.8 18 - 52 % Monocytes Relative 5.2 3 - 10 % Eosinophils Relative 1.7 0 - 6 % Basophils Relative 1.3 0 - 3 % Neutrophils Absolute 1.2 / L MCH 31.2 26.0 - 34.0 pg MCHC 33.4 30 - 37 g/dL MCV 93.4 82.0 - 108.0 fL Platelets 108 K/ L RBC 3.81(A) 4.50 - 5.90 10^6/ L WBC 2.3 10^3/mL Blood Narrative Resulting Agency Comment Kev [facility] Result [facility] Provider LAB BLOOD ORDERABLES Denisse l Result * Urine Protein, Tot, Random (w/o Creat) (01/05/2025 9:27 AM EDT) [facility] Total Protein, Ur 21.0 Urine Narrative Resulting Agency Comment [facility] Result [facility] Provider URINE ORDERABLES Final Re sult * Hepatic Function Panel (01/05/2025 9:27 AM EDT) Bilirubin, Direct 0.2 Bilirubin, Indirect 0.8 Alkaline Phosphatase 47 ALT 16 AST 28 Total Bilirubin 1.0 Total Protein 7.0 Plasma Narrative Resulting Agency Comment [facility] us Historical Provider LAB BLOOD ORDERABLES Denisse l Result documented in this encounter Visit Diagnoses Not on filedocumented in this encounter Additional Health Concerns Infection Onset Date Last Indicated Resolved Time 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
--- OUTSIDE RECORDS SUMMARY | 2025-01-09 12:27 | XMS_ITS | Encounter Summary ---
Author Organization [facility] Address [address] [place] [address] Care Team Providers Care Police Crime Scene Technician Name Role Phone Enedina Mcguire NP Primary Care Provider + [phone] Marueen Pantoja RN Unavailable Unavail able Source [...] release of HIV test results or diagnoses. [id number] Reason for Visit * Reason Comments Results Encounter Details Date Type Department Care Team (Riky st Contact Info) Description 01/08/2025 Telephone [facility] Liver Transplant at [address] [phone] Maureen Pantoja, RN Results [...] In the past 12 months has e [employer], gas, oil, or water [employer] threatened to shut off services [...] Progress Notes * Maureen Pantoja RN - 01/09/2025 10:57 AM EDT FK 12.6 Will route to Txp Provider for further review and recommendations. * Maureen Pantoja RN - 01/08/2025 8:09 AM EDT Lab results from 01/05/25 reviewed during 01/06/25 office visit, see note. FK pending from 01/05/25. Will follow-up. Current IS: FK 5 mg in AM and 6 mg in PM MMF 500 mg BID Prednisone 5 mg daily (decreased 01/06/25, after these labs were collected) documented in this encounter Miscellaneous Notes * Telephone Encounter - Maureen Pantoja RN - 01/09/2025 12:14 PM EDT Reviewed by Dr. Alonzo. No changes noted. 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
--- OUTSIDE RECORDS SUMMARY | 2025-01-09 12:27 | XMS_ITS | Encounter Summary ---
Author Organization [facility] Address [address] [place] [address] Care Team Providers Care Media Analytics Manager Name Role Phone Enedina Mcguire NP Primary Care Provider + [phone] Maureen Pantoja RN Unavailable Unavail able Source [...] release of HIV test results or diagnoses. [id number] Health Encounter Details Date Type Department Care Team (Late st Contact Info) Description 11/20/2024 Refill [facility] Liver Transplant at [address] [place] [phone] Maureen Pantoja, RN Social History Tobacco Use [...] Recorded In the past 12 months has [employer], gas, oil, or water [employer] threatened to shut off services in your [...] as of this encounter Care Teams Media Analytics Manager Relationship Specialty Start Date End Date Enedina Mcguire NP [address] [place] [address] PCP - General Internal Medicine 10/05/24 Maureen Pantoja, ЮЛИЯ Txp Post Coordinator Transplant Hepatology 10/28/24 documented as of this encounter
--- OUTSIDE RECORDS SUMMARY | 2025-01-09 12:27 | XMS_ITS | Encounter Summary ---
[facility] Organization [facility] Address [address] [place] [address] Care Team Providers Care Payroll Accounting Manager Name Role Phone Enedina Mcguire APRN Primary Care Provider + Reason for Visit * Reason Comments Med Refill Encounter Details Date Type Department Care Team (Late st Contact Info) Description 07/20/2022 Refill [facility] GASTROENTEROLOGY 1780 [facility] [address] [place] [address] Lj Tapia APRN [address] [place] [address] Secondary esophageal varices without bleeding Social History [...] or training? Not on file Preferred Language Lithuanian 07/03/2022 Sex and Gender Information Value Date Recorded Sex Assigned at Male 08/20/2024 8:28 PM EDT Legal Sex Male 7:45 AM EDT Gender Identity Not on file Sexual Orientation Not on file documented as of this encounter Plan of Treatment Upcoming Encounters Date Type Department Care Team (Late st Contact Info) Description 04/02/2025 2:15 PM EST Office Visit [facility] PAIN MANAGEMENT [address] [address] Vazquez Christie PA-C [address] [place] [address] documented as of this encounter Visit Diagnoses Diagnosis Secondary esophageal varices without bleeding documented in this encounter Additional Health Concerns Infection Onset Date Last Indicated Resolved Time COVID Screen (preop/placement) 07/28/2022 07/28/2022 07/29/2022 12:00 AM EDT documented as of this encounter Care Teams Payroll Accounting Manager Relationship Specialty Start Date End Date Enedina Mcguire APRN [address] [place] [address] PCP - General Nurse Practitioner 10/27/24 documented as of this encounter
--- OUTSIDE RECORDS SUMMARY | 2025-01-09 12:27 | XMS_ITS | Encounter Summary ---
Author Organization [facility] Address [address] [place] [address] Care Team Providers Care Debit Agent Name Role Phone Enedina Mcguire NP Primary Care Provider + [phone] Maureen Pantoja RN Unavailable Unavail able Source [...] release of HIV test results or diagnoses. [id number] Reason for Visit * Reason Comments Critical Lab Results Encounter Details Date Type Department Care Team (Late st Contact Info) Description 01/05/2025 Telephone [facility] Liver Transplant at [address] [place] [phone] Marisela Martinez MA Critical Lab Results Social History Tobacco Use Types Packs/Day Years Used Date Smoking Tobacco: Former Cigarettes Smokeless Tobacco: Current Alcohol Use Standard Drinks/Week Comments Yes 0 (1 standard drink = 0.6 oz pure alcohol) History of alcohol abuse, reports no use in 3 week- typically endorses use as 4 glasses of wine a days Utilities Answer Date Recorded In the past 12 months has e [employer], gas, oil, or water [employer] threatened to shut off services in your [...] Notes * Maureen Pantoja RN - 01/05/2025 12:52 PM EDT Magnesium 1.0 Patient is prescribed Slow Mag 143 mg TID by Kidney Txp. Patient has Kidney Txp and Liver Txp clinic visits tomorrow. Will forward ahead of upcoming appointment. * Marlene Ro MA - 01/05/2025 12:48 PM EDT Received fax. Results were entered and routed to his CC RN Maureen for review. Patient's tacrolimus and urine culture are still pending. 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
--- OUTSIDE RECORDS SUMMARY | 2025-01-09 12:27 | XMS_ITS | Encounter Summary ---
[facility] [address] [place] [address] Care Team Providers Care Bung Dropper Name Role Phone Enedina Mcguire APRN Primary Care Provider + Encounter Details Date Type Department Care Team ([facility] st Contact Info) Description 10/07/2024 Results Follow-Up [facility] INTERNAL MEDICINE [address] [place] [address] Enedina Mcguire APRN [address] [place], [place] [id number] Social History Tobacco Use Types Packs/Day Years Used Date Smoking Tobacco: Former Cigarettes 4 20 Passive Smoke Exposure: Past Smokeless Tobacco: Current Comments:MARIJUANA USE ABOUT 2X PER WEEK - reports no use 08-05-2024 Alcohol Use Standard Drinks/Week Comments Not Currently 0 (1 standard drink = 0.6 oz pure alcohol) 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 [facility] Utilities Answer Date Recorded In the past 12 months has [employer], [employer], oil, or water [employer] threatened to shut off services in your [...] Score 0 10/02/2022 [facility] - Occupational [...] [facility] [address] [address] Vazquez Christie PA-C [address] [place] [address] documented as of this encounter Visit Diagnoses Not on filedocumented in this encounter Additional Health Concerns Assessment Noted Time PHQ-2 Depression Total Score: 1 12/31/19 24 3:25 PM EDT documented as of this encounter Care Teams Bung Dropper Relationship Specialty Start Date End Date Enedina Mcguire APRN [address] [place] [address] PCP - General Nurse Practitioner 10/27/24 documented as of this encounter
--- OUTSIDE RECORDS SUMMARY | 2025-01-09 12:27 | XMS_ITS | Encounter Summary ---
[facility] [address] [place] [address] Care Team Providers Care Abalone Diver Name Role Phone Enedina Mcguire APRN Primary Care Provider + Reason for Visit * Reason Comments Med Refill Encounter Details Date Type Department Care Team (Late st Contact Info) Description 09/12/2022 Refill [facility] GASTROENTEROLOGY 1780 [facility] [address] [place] [address] Lj Tapia APRN [address] [place] [address] Social History Tobacco Use Types Packs/Day Years [...] or training? Not on file Preferred Language Upper Sorbian 07/03/2022 Sex and Gender Information Value Date Recorded Sex Assigned at Male 08/20/2024 8:28 PM EDT Legal Sex Male 7:45 AM EDT Gender Identity Not on file Sexual Orientation Not on file documented as of this encounter Plan of Treatment Upcoming Encounters Date Type Department Care Team (Late st Contact Info) Description 04/02/2025 2:15 PM EST Office Visit [facility] PAIN MANAGEMENT [address] [address] Vazquez Christie PA-C [address] [place] [address] documented as of this encounter Visit Diagnoses Not on filedocumented in this encounter Care Teams Abalone Diver Relationship Specialty Start Date End Date Enedina Mcguire APRN [address] [place] [address] PCP - General Nurse Practitioner 10/27/24 documented as of this encounter
--- OUTSIDE RECORDS SUMMARY | 2025-01-09 12:27 | XMS_ITS | Encounter Summary ---
Author Organization [facility] Address [address] [place] [address] Care Team Providers Care Cream Hauler Name Role Phone Enedina Mcguire NP Primary Care Provider + [phone] Alicia Rankin RN Unavailable Unavail able Source [...] release of HIV test results or diagnoses. [id number] Reason for Visit * Reason Comments Results Encounter Details Date Type Department Care Team (Riky st Contact Info) Description 11/26/2024 Telephone [facility] Liver Transplant at [address] [address] Alicia Rankin, RN Results Social [...] In the past 12 months has e [employer], gas, oil, or water [employer] threatened to shut off services in your [...] encounter Visit Diagnoses Diagnosis S/P liver transplant ([facility])- Primary Alcohol use Other problems related to lifestyle Immunosuppression (CMS-HCC) Kidney transplant recipient documented in this encounter Additional Health Concerns Infection Onset Date Last Indicated Resolved 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
--- OUTSIDE RECORDS SUMMARY | 2025-01-09 12:27 | XMS_ITS | Encounter Summary ---
[facility] Address [address] [place] [address] Care Team Providers Care Guest Experience Specialist Name Role Phone Enedina Mcguire APRN Primary Care Provider + Reason for Visit * Reason Onset Date Comments CALLBACK 10/27/2024 Encounter Details Date Type Department Care Team ([facility] st Contact Info) Description 10/27/2024 Telephone [facility] INTERNAL MEDICINE [address] [place] [address] Enedina Mcguire APRN [address] [place] [address] CALLBACK Social History Tobacco Use Types Packs/Day Years Used Date Smoking Tobacco: Former Cigarettes 4 20 Passive Smoke Exposure: Past Smokeless Tobacco: Current Comments:MARIJUANA USE ABOUT 2X PER WEEK - reports no use 08-05-2024 Alcohol Use Standard Drinks/Week Comments Not Currently 0 (1 standard drink = 0.6 oz pure alcohol) 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 [facility] Utilities Answer Date Recorded In the past 12 months has [employer], [employer], oil, or water [employer] threatened to shut off services in your [...] Depression Severity Measure Score 0 10/02/2022 [facility] - Occupational Stress Questionnaire Answer [...] GED or equivalent No 07/09/2024 Preferred Language Macedonian 07/09/2024 PHQ-2 Answer Date Recorded Patient Health [...] Relationship: Emergency Contact Best call back number: [phone] What was the call regarding: WOULD LIKE A CALL BACK FROM FRANCESCA MCGUIRE HERSELF. SHE WOULD LIKE TO DISCUSS HER 'S TRANSPLANT LIST STATUS. THEY HAVE SOME GOOD NEWS TO REPORT. documented in this encounter Plan of Treatment Upcoming Encounters Date Type Department Care Team (Late st Contact Info) Description 04/02/2025 2:15 PM EST Office Visit [facility] 3000 [facility] [address] [place] [address] Vazquez Christie PA-C [address] [place] [id number] documented as of this encounter Visit Diagnoses Not on filedocumented in this encounter Additional Health Concerns Assessment Noted Time PHQ-2 Depression Total Score: 1 12/31/19 24 3:25 PM EDT documented as of this encounter Care Teams Guest Experience Specialist Relationship Specialty Start Date End Date Enedina Mcguire APRN [address] [place] [address] PCP - General Nurse Practitioner 10/27/24 documented as of this encounter
--- OUTSIDE RECORDS SUMMARY | 2025-01-09 12:27 | XMS_ITS | Encounter Summary ---
[facility] Address [address] [place] [address] Care Team Providers Care Cushion Worker Name Role Phone Enedina Mcguire APRN Primary Care Provider + Encounter Details Date Type Department Care Team ([facility] st Contact Info) Description 10/07/2024 Results Follow-Up [facility] INTERNAL MEDICINE [address] [place] [address] Enedina Mcguire APRN [address] [place], [place] [id number] Social History Tobacco Use Types Packs/Day Years [...] Recorded In the past 12 months has [employer], [employer], oil, or water [employer] threatened to shut off services in your [...] 2:15 PM EST Office Visit [facility] PAIN [facility]EMENT [address] [address] Vazquez Christie PA-C [address] [place] [address] documented as of this encounter Visit Diagnoses Not on filedocumented in this encounter Additional Health Concerns Assessment Noted Time PHQ-2 Depression Total Score: 1 12/31/19 24 3:25 PM EDT documented as of this encounter Care Teams Cushion Worker Relationship Specialty Start Date End Date Enedina Mcguire APRN [address] [place] [address] PCP - General Nurse Practitioner 10/27/24 documented as of this encounter
--- OUTSIDE RECORDS SUMMARY | 2025-01-09 12:27 | XMS_ITS | Encounter Summary ---
Author Organization [facility] Address [address] [place] [address] Care Team Providers Care Manager Of Financial Planning Name Role Phone Enedina Mcguire NP Primary Care Provider + [phone] Maureen Pantoja RN Unavailable Unavail able Source [...] release of HIV test results or diagnoses. [id number] Health Encounter Details Date Type Department Care Team (Late st Contact Info) Description 11/20/2024 Orders Only [facility] Liver Transplant at [address] [place] [phone] Maureen Pantoja, ЮЛИЯ S/P liver transplant (CMS-HCC) (Primary Dx); Immunosuppression ([facility]-HCC); Viral disease exposure; Alcohol use Social [...] Recorded In the past 12 months has [employer], gas, oil, or water [employer] threatened to shut off services in your [...] Cutoff: 10 ng/mL 11/28/2024 8:24 AM EDT [facility] Comment: Phosphatidylethanol (PEth) homologues result interpretation [...] Cutoff: 10 ng/mL 11/28/2024 8:24 AM EDT [facility] Comment: PEth 16:0/18:2 (PLPEth) Reference ranges are not well established PEth Interpretation Positive. 11/28 8:24 AM T [facility] Comment: ADDITIONAL INFORMATION This report is intended for use in clinical monitoring and management of patients. It is not intended for use in employment-related testing. This test was developed and its performance characteristics determined by [facility] in a manner consistent with CLIA requirements. This test has not been cleared or approved by the U.S. Food and Drug Administration. Test Performed by: [facility] - [address] [address] Piece Dye Worker: Kathy Ortiz Ph.D.; CLIA# [id number] Whole Blood 11/25/2024 8:42 AM EDT 11/28/2024 8:24 AM EDT [facility] - 11/28/2024 8:24 AM EDT One time lab order to be collected with next set of standing liver transplant labs. Please fax all results to [phone]. Call critical results to [phone]. Harvey Domínguez III, MD LAB BLOOD ORDERABLE S Final Result Performing Organization Address City/[facility]/ZIP Co de Phone Number [facility] [address] [facility]. [address] * HIV-1 RNA, Quantitative, PCR (11/25/2024 8:42 AM EDT) Pathologist [facility] HIV 1 Copies Not Detected copies/mL 11/26/2024 10:57 AM EDT [facility] Comment:Test methodology for HIV-1 RNA quantification is an FDA-approved nucleic acid amplification assay. The Lower Limit of Quantitation (LLoQ) is 20 copies/mL. The linear range is 20- to 10,000,000 copies/mL. The Limit of Detection (LoD) is 13.2 copies/mL. The reference range is Not Detected. HIV [id number] See Note [id number] /mL 11/26/2024 10:57 AM EDT [facility] Comment:HIV-1 RNA not detect ed. Plasma 11/25/2024 8:42 AM EDT 11/25/2024 10:59 AM EDT [facility] - 11/26/2024 10:57 AM EDT One time lab order to be collected with next set of standing liver transplant labs. UNOS requirement. Please fax all results to [phone]. Call critical results to [phone]. Harvey Domínguez III, MD LAB BLOOD ORDERABLE S Final Result Performing Organization Address City/[facility]/ZIP Co de Phone Number [facility] [address]. [address] * Hepatitis C RNA, Quantitative PCR (11/25/2024 8:42 AM EDT) Pathologist [facility] [employer] Units Not Detected IU/mL 11/27/2024 11:35 AM EDT [facility] Comment:Test methodology for HCV RNA quantification is an FDA-approved nucleic acid amplification assay. The Lower Limit of Quantitation (LLOQ) is 15 IU/mL. The linear range of the assay is 15-100,000,000 IU/mL. The Limit of Detection (LoD) is 12.0 IU/mL for EDTA plasma. The reference range is Not Detected. IU log10 See Note log 10 IU/mL 11/27/2024 11:35 AM EDT [facility] Comment:HCV RNA not detected . Plasma 11/25/2024 8:42 AM EDT 11/25/2024 10:59 AM EDT [facility] - 11/27/2024 11:35 AM EDT One time lab order to be collected with next set of standing liver transplant labs. UNOS requirement. Please fax all results to [phone]. Call critical results to [phone]. aHrvey Domínguez III, MD LAB BLOOD ORDERABLE S Final Result [facility] [address] [place] [address], [facility] * Hepatitis B Virus (HBV), PCR, Quant (11/25/2024 8:42 AM EDT) Hep B Viral DNA IU/ML Not Detected IU/mL 11/28/2024 10:09 AM EDT [facility] Comment:Test methodology for HBV DNA quantification is an FDA-approved nucleic acid amplification assay. The lower limit of quantitation (LLOQ) is 10 IU/mL. The linear range of the assay is 10-1,000,000,000 IU/mL. The limit of detection (LoD) for plasma is 2.7 IU/mL. The reference range is Not Detected. log 10 HBV as IU/mL See Note log 10 IU/mL 11/28/2024 10:09 AM EDT [facility] Comment:HBV DNA not detected . Plasma 11/25/2024 8:42 AM EDT 11/25/2024 10:59 AM EDT Narrative [facility] - 11/28/2024 10:09 AM EDT One time lab order to be collected with next set of standing liver transplant labs. UNOS requirement. Please fax all results to [phone]. Call critical results to [phone]. us Harvey Domínguez III, MD LAB BLOOD ORDERABLE S Final Result [facility] [address] [place], [place] [address] documented in this encounter [...] of this encounter Care Teams Manager Of Financial Planning Relationship Specialty Start Date End Date Enedina Mcguire NP [address] [place] [address] PCP - General Internal Medicine 10/05/24 Maureen Pantoja, RN Txp Post Coordinator Transplant Hepatology 10/28/24 documented as of this encounter
--- OUTSIDE RECORDS SUMMARY | 2025-01-09 12:27 | XMS_ITS | Encounter Summary ---
Author Organization [facility] Address [address] [place] [address] Care Team Providers Care Anglesmith Name Role Phone Enedina Mcguire NP Primary Care Provider + [phone] Maureen Pantoja RN Unavailable Unavail able Source [...] release of HIV test results or diagnoses. [id number] Health Encounter Details Date Type Department Care Team (Late st Contact Info) Description 01/06/2025 Social Work [facility] Liver Transplant at [address] [place] [phone] Kaylin Willard MSW Social History Tobacco Use [...] Recorded In the past 12 months has [employer], gas, oil, or water [employer] threatened to shut off services in your [...] encounter Progress Notes * NUBIA Barros - 01/06/2025 11:41 AM EDT Social Work Outpatient Note- Liver Transplant Patient is status post SLK transplant on 10/27/2024. SW met with Patient and spouse during Post Liver Transplant Clinic. Patient reports that he has been using ~3 glasses of wine daily. He acknowledges that this is problematic post-transplant and has a lot of work to do . His was tearful when discussing this and reports he hides alcohol use from her. He is currently engaged with CD treatment through [facility] and reports seeing his counselor 1x a week as this is all his insurance will allow. He reports attending occasional AA meetings. He reports access to a peer recovery specialists but denies reaching out to them when he has cravings etc. SW to reach out to patients counselor for follow-up. SW reviewed concerns for alcohol use post-transplant and harm to his new liver, he was understanding. SW encouraged patient to increase engagement with his CD counselor, AA meetings and explored [facility] meetings as well. SW reviewed some strategies to keep patient busy and increase family involvement to encourage sobriety. Patient was prescribed Naltrexone but reports taking this for a week and stopping due to feeling weird on it and is planning to restart. Patient attributes part of this relapse to ongoing back/neck pain and was just cleared by providersto get a nerve block that he hopes will reduce/eliminate his pain. Transplant CD counselor to meet with patient today. 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
--- OUTSIDE RECORDS SUMMARY | 2025-01-09 12:28 | XMS_ITS | Clinical Summary ---
Author Organization Healthcare Address [address] [place] [address] Care Team Providers Care Hair Machine Operator Name Role Phone Lj Tapia Rohini RICKS Unavailable [phone] Enedina Mcguire APRN Primary Care Provider + [...] Nephrology, Bone & Mineral Metabolism [address] [facility], [address] [place] [address] Chelsy Villanueva from Last 3 [...] answer 07/14/2024 How often do you attend [facility] or lutheran services? Patient unable to answer [...] Recorded Patient Health Questionnaire-2 Score 2 09/29/2024 [facility] - [facility] [...] a long term (including now)? No 11/19/2023 PHQ-9 Answer Date [...] drink first t deborah in the morning (EYE-EDUCATION INTERN) to steady your nerves or to get rid of a hangover? 0 07/19/2024 CAGE Questionnaire Score 2 025 Utilities Answer Date Recorded In the past 12 months has th [employer] electric, gas, oil, or water company threatened [...] 09/29/2024 1:41 PM EDT Plan of Treatment Health Maintenance Due Date Last Done Comments [facility]-/Child/Adol SDOH Screenings 1983 [facility]-Hepatitis A Vaccines (1 [...] 2 - 13+ 2-dose series) 10/11/2010 09/13/2010 [id number] Vaccine ( - season) 2024 03/17/2021, 07/25/2020, 06/27/2020 [facility]-Influenza [...] this topic Medical Devices Implanted Type Area Consumer Affairs Director Device Identifier Shelf Expiration Date Model / Serial / Lot Concerto [place] Coil-07/03/2022 Implanted:06/15 by Timmy Brunner MD (Quantity not on file) Coil Abdomen Description:Multiple Coil Co ncerto Pgla [place] Detach COILS implanted on 07/03/2022 by Timmy Brunner MD at [facility]--info can be found in Care Everywhere for [facility] as of 11/15/23 Dona Coil-07/03/2022 Implanted:06/15 by Timmy Brunner MD (Quantity not on file) Coil Abdomen [employer] Description:Coil Emb Dona 3.7/Implanted: Qty: 1 on 07/03/2022 by Timmy Brunner MD at [facility] Plate Plate N/A: Neck Plug Vasc Anton Emb Amplatzer Implanted:06/15 by Timmy Brunner MD (Quantity not on file) Plug Other Vein / / [id number] Description:Plug Vasc Anton Em b Ampltz .027 [id number] - [id number] Implanted: Qty: 1 on 07/03/2022 by Timmy Brunner MD at [facility] Stent Gastro Panc 5fr 5cm - [id number] Implanted:Qty: 1 on 11/20/2023 by Devang Mcghee RN at [facility] Pancreas [employer]-[id number] 08/13/2026 [id number] / / [id number] Procedures Procedure Name Priority Date/Time Associated Diagnosis [...] ORDERA BLES Final Result Performing Organization Address City/[facility]/ZIP Co de Phone Number [facility] [address] [place] [address] * Hepatitis C Antibody (07/14/2024 4:31 PM EST) Hepatitis C Antibody Negative Negative 07/14/2024 5:27 PM EST [facility] Blood Venous blood specimen / Unknown Venipuncture / Unknown 07/14/2024 4:31 PM EST 07/14/2024 4:54 PM EST Laureano Salinas APRN, DNP LAB BLOOD ORDERA BLES Final Result Performing Organization Address City/[facility] [[email or web address]] Co de Phone Number [facility] [address] [place] [address] from Last 3 Months or Most Recently Relevant to [place] [address] [place] [address] [facility] Advance Directives * Full Code (Latest Code Status on File) Date Activated Date Inactivated Comments 07/11/2024 11:04 PM 07/23/2024 6:27 PM Question Answer Comments Patient has decision-making capacity? Yes * Full Code Date Activated Date Inactivated Comments 11/14/2023 10:15 PM 11/27/2023 9:08 PM Question Answer Comments Patient has decision-making capacity? Yes Care Teams Hair Machine Operator Relationship Specialty Start Date End Date Enedina Mcguire APRN [address] [place] [address] PCP - General 12/04/22 Lj Tapia APRN [address] [place] [address] Referring Physician Gastroenterology 07/18/22
--- OUTSIDE RECORDS SUMMARY | 2025-01-09 12:28 | XMS_ITS | Encounter Summary ---
Author Organization [facility] Address [address] [place] [address] Care Team Providers Care Geodetic Surveyor Name Role Phone Enedina Mcguire NP Primary Care Provider + [phone] Maureen Pantoja RN Unavailable Unavail able Source [...] release of HIV test results or diagnoses. [id number] Health Encounter Details Date Type Department Care Team (Late st Contact Info) Description 12/09/2024 Social Work [facility] Liver Transplant at [address] [place] [address] Kaylin Willard MSW Social History Tobacco Use [...] Recorded In the past 12 months has [employer], gas, oil, or water [place] threatened to shut off services in your [...] AM 11/25/2024 3:00 PM 12/10/2024 9:00 AM [id number] Score MAGALYS-7 Total Score 17 13 4 [...] post-transplant. He notes he meets with an SUPERVISOR SANDING weekly and a counselor weekly through [facility]. He was agreeable to seeing transplant CD counselortoday as well. Of note, pharmacy notified transplant staff that patient also prescribed Tramadol by his pain clinic and is unable to release Naltrexone script at this time. SW to continue to follow. 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
--- OUTSIDE RECORDS SUMMARY | 2025-01-09 12:28 | XMS_ITS | Encounter Summary ---
Author Organization [facility] Address [address] [place] [address] Care Team Providers Care Photostat Operator Helper Name Role Phone Enedina Mcguire APRN Primary Care Provider + Reason for Visit * Reason Onset Date Comments Appointment 01/08/2025 Encounter Details Date Type Department Care Team (Late st Contact Info) Description 01/08/2025 Telephone [facility] PAIN MANAGEMENT [address] [phone] Vazquez Christie PA-C [address] [place] [address] Appointment Social History Tobacco Use Types Packs/Day Years Used Date Smoking Tobacco: Former Cigarettes 4 20 Passive Smoke Exposure: Past Smokeless Tobacco: Current Comments:MARIJUANA USE ABOUT 2X PER WEEK - reports no use 08-05-2024 Alcohol Use Standard Drinks/Week Comments Not Currently 0 (1 standard drink = 0.6 oz pure alcohol) 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 [facility] Utilities Answer Date Recorded In the past 12 months has [employer], gas, oil, or water [employer] threatened to shut off services in [...] Brief Depression Severity Measure Score 0 10/02/2022 [employer] of Occupat ional [facility] - Occupational Stress Questionnaire Answer Date [...] GED or equivalent No 07/09/2024 Preferred Language Indonesian 07/09/2024 PHQ-2 Answer Date Recorded Patient Health Questionnaire-9 Score 6 01/01/2025 Sex and Gender Information Value Date Recorded Sex Assigned at Male 08/20/2024 8:28 PM EDT Legal Sex Male 7:45 AM EDT Gender Identity Not on file Sexual Orientation Not on file documented as of this encounter Miscellaneous Notes * Telephone Encounter - Zina [place] RN - 01/08/2025 1:17 PM EDT Pt r/s 02/05 * Telephone Encounter - Lisbet Garcia RegSched Rep - 01/08/2025 12:07 PM EDT Caller: Julien Anderson Relationship to patient: Self Best call back number: [phone] Chief complaint: C2/3 and C6/7 Medial branch block Type of visit: OUTSIDE FAC. Requested date: A COUPLE DAYS AFTER SCHEDULED TIME If rescheduling, when is the original appointment: 02/03/25 Additional notes:SCHEDULING CONFLICT * Telephone Encounter - Zina [place] RN - 01/08/2025 11:56 AM EDT Patient scheduled 02/03 * Telephone Encounter - Talisha Maldonado RegSched Rep - 01/08/2025 11:36 AM EDT Hub staff attempted to follow warm transfer process and was unsuccessful Caller: Julien Anderson Relationship to patient: Self Best call back number: [phone] Patient is needing: PATIENT IS RETURNING A PHONE CALL TO [facility] - documented in this encounter Plan of Treatment Upcoming Encounters Date Type Department Care Team (Late st Contact Info) Description 04/02/2025 2:15 PM EST Office Visit [facility] PAIN MANAGEMENT [address] [address] Vazquez Christie PA-C [address] [address] documented as of this encounter Visit Diagnoses Not on filedocumented in this encounter Additional Health Concerns Assessment Noted Time PHQ-2 Depression Total Score: 1 12/31/19 24 3:25 PM EDT documented as of this encounter Care Teams Photostat Operator Helper Relationship Specialty Start Date End Date Enedina Mcguire APRN [address] [place] [address] PCP - General Nurse Practitioner 10/27/24 documented as of this encounter
--- OUTSIDE RECORDS SUMMARY | 2025-01-09 12:28 | XMS_ITS | Encounter Summary ---
Author Organization Healthcare Address [address] [place] [address] Care Team Providers Care Occupational Health Nursing Director Name Role Phone Jony Conde MD Primary Care Provider [phone] Lj Tapia BACK TENDER INSULATION BOARD Unavailable [phone] Enedina Mcguire BACK TENDER INSULATION BOARD Primary Care Provider + Nuria Fall JIG BOX OPERATOR Unavailable Unavaila ble Encounter Details Date Type Department Care Team (Late st Contact Info) Description 07/03/2022 Orders Only External Location [address] [place] [address] Presley Montes De Oca MD [address] [phone] Social History Tobacco Use Types Packs/Day Years [...] on filedocumented in this encounter Care Teams Occupational Health Nursing Director Relationship Specialty Start Date End Date Jony Conde MD [address] [place] [address] [address] [place] [address] PCP - General 07/18/22 12/03/22 Enedina Mcguire APRN [address] [place] [address] PCP - General 12/04/22 Lj Tapia APRN [facility] [place], [place] [id number] Referring Physician Gastroenterology 07/18/[address] [facility] TCM Nurse 07/24/24 08/23/24 documented as of this encounter
--- OUTSIDE RECORDS SUMMARY | 2025-01-09 12:28 | XMS_ITS | Encounter Summary ---
Author Organization Healthcare Address [address] [place] [address] Care Team Providers Care Packaging Associate Name Role Phone [place], Lj Nova APRN Unavailable [phone] Enedina Mcguire APRN Primary Care Provider + Encounter Details Date Type Department Care Team ([facility] st Contact Info) Description 11/27/2024 Telephone [facility] Nephrology, Bone & Mineral Metabolism [address] [facility], [address] [place] [address] Chelsy Villanueva Social History Tobacco [...] often do you attend chur ch or orthodoxy services? Patient unable to answer 07/14/2024 Do [...] Recorded Patient Health Questionnaire-2 Score 2 09/29/2024 [facility] - Occupational Stress Questionnaire Answer Date Recorded [...] drink first t deborah in the morning (EYE-CLERK ENTRY LEVEL) to steady your nerves or to get [...] now s/p transplant can follow with transplant commissioned defence force officer, please cancel appt. documented in this encounter [...] as of this encounter Care Teams Packaging Associate Relationship Specialty Start Date End Date Enedina Mcguire APRN [address] [place] [address] PCP - General 12/04/22 Lj Tapia APRN [address] [place] [address] Referring Physician Gastroenterology 07/18/22 documented as of this encounter
--- OUTSIDE RECORDS SUMMARY | 2025-01-09 12:28 | XMS_ITS | Encounter Summary ---
Author Organization Healthcare Address [address] [place] [address] Care Team Providers Care Hospital Mortician Name Role Phone Jony Conde MD Primary Care Provider [phone] Lj Tapia ASSOCIATE CURATOR Unavailable [phone] Enedina Mcguire ASSOCIATE CURATOR Primary Care Provider + Nuria Fall SENIOR ESTIMATOR Unavailable Unavaila ble Encounter Details Date Type Department Care Team (Late st Contact Info) Description 07/04/2022 Orders Only External Location [address] [place] [address] Presley Montes De Oca MD [address] [id number] Social History Tobacco Use Types Packs/Day Years [...] on filedocumented in this encounter Care Teams Hospital Mortician Relationship Specialty Start Date End Date Jony Conde MD [address] [place] [address] [address] [place], [place] [phone] PCP - General 07/18/22 12/03/22 Enedina Mcguire APRN [address] [place] [address] PCP - General 12/04/22 Lj Tapia APRN [address] [place] [address] [id number] Referring Physician Gastroenterology 07/18/[address] [facility] TCM Nurse 07/24/24 08/23/24 documented as of this encounter
--- OUTSIDE RECORDS SUMMARY | 2025-01-09 12:28 | XMS_ITS | Encounter Summary ---
Author Organization [facility] Address [address] [place] [address] Care Team Providers Care Script Reader Name Role Phone Enedina Mcguire NP Primary Care Provider + [phone] Maureen Pantoja RN Unavailable Unavail able Source [...] release of HIV test results or diagnoses. [id number] Health Encounter Details Date Type Department Care Team (Late st Contact Info) Description 11/04/2024 Nutrition [facility] Transplant at [address] [place] [phone] Ben Weiss, DMITRY Social History Tobacco Use [...] Recorded In the past 12 months has [employer], gas, oil, or water [employer] threatened to shut off services in your [...] day. blood-glucose meter (TRUE METRIX GLUCOSE METER) [facility] Use [...] times a day. naloxone (NARCAN) 4 mg/actuation Mettler Apply 1 spray in one nostril if [...] documented as of this encounter Care Teams Script Reader Relationship Specialty Start Date End Date Enedina Mcguire NP [address] [place] [address] PCP - General Internal Medicine 10/05/24 Maureen Pantoja, RN Txp Post Coordinator Transplant Hepatology 10/28/24 documented as of this encounter
--- OUTSIDE RECORDS SUMMARY | 2025-01-09 12:28 | XMS_ITS | Encounter Summary ---
Author Organization [facility] Address [address] [place] [address] Care Team Providers Care Sat Math Tutor Name Role Phone Enedina Mcguire NP Primary Care Provider + [phone] Maureen Pantoja RN Unavailable Unavail able Source [...] release of HIV test results or diagnoses. [id number] Reason for Visit * Reason Comments Results Encounter Details Date Type Department Care Team (Riky st Contact Info) Description 12/12/2024 Telephone [facility] Liver Transplant at [address] [address] Maureen Pantoja, RN Results Social [...] In the past 12 months has e [employer] [place], gas, oil, or water [employer] threatened to shut off services in your [...] documented as of this encounter Care Teams Sat Math Tutor Relationship Specialty Start Date End Date Enedina Mcguire NP [address] [place] [address] PCP - General Internal Medicine 10/05/24 Maureen Pantoja, RN Txp Post Coordinator Transplant Hepatology 10/28/24 documented as of this encounter
--- OUTSIDE RECORDS SUMMARY | 2025-01-09 12:28 | XMS_ITS | Encounter Summary ---
Author Organization [facility] Address [address] [place] [address] Care Team Providers Care Cathode Ray Tube Assembler Name Role Phone Enedina Mcguire NP Primary Care Provider + [phone] Maureen Pantoja RN Unavailable Unavail able Source [...] release of HIV test results or diagnoses. [id number] Health Encounter Details Date Type Department Care Team (Late st Contact Info) Description 12/09/2024 Telephone [facility] Transplant at [address] [address] Mitzy Gill MA Social History [...] In the past 12 months has e [employer], gas, oil, or water company threatened to [...] call pharmacy with update. Patient notified via [employer]. * Mitzy Gill MA - 12/10/2024 10:09 [...] understanding and agreeable to plan. * Maureen Pantoaj RN - 12/09/2024 1:35 PM EDT Reviewed [...] I stated we received a call from [facility] stating he picked up a tramadol prescription on 12/05 and there is an issue with him having naltrexone prescribed as well. Per CC ЮЛИЯ Reddy, Pt cannot have naltrexone filled while actively taking tramadol. Spoke to Kirt at [facility] and advised him not to [...] - 12/09/2024 12:41 PM EDT Kirt from [facility] states they received a naltrexone [...] documented as of this encounter Care Teams Cathode Ray Tube Assembler Relationship Specialty Start Date End Date Enedina Mcguire NP [address] [place] [address] PCP - General Internal Medicine 10/05/24 Maureen Pantoja, ЮЛИЯ Txp Post Coordinator Transplant Hepatology 10/28/24 documented as of this encounter
--- OUTSIDE RECORDS SUMMARY | 2025-01-09 12:28 | XMS_ITS | Encounter Summary ---
Author Organization [facility] Address [address] [place] [address] Care Team Providers Care Unscrambler Name Role Phone Enedina Mcguire APRN Primary [...] 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 [facility] Utilities Answer Date Recorded In the past 12 months has [employer], gas, oil, or water [employer] threatened to shut off services in your [...] Depression Severity Measure Score 0 10/02/2022 [facility] [place] of Occupat ional Health - Occupational Stress [...] Description 04/02/2025 2:15 PM EST Office Visit [facility] PAIN [facility]NAGEMENT [address] [address] Vazquez Christie PA-C [address] [place] [address] documented as of this encounter Visit Diagnoses Not on filedocumented in this encounter Additional Health Concerns Assessment Noted Time PHQ-2 Depression Total Score: 1 12/31/19 24 3:25 PM EDT documented as of this encounter Care Teams Unscrambler Relationship Specialty Start Date End Date Enedina Mcguire APRN [address] [place] [address] PCP - General Nurse Practitioner 10/27/24 documented as of this encounter
--- OUTSIDE RECORDS SUMMARY | 2025-01-09 12:28 | XMS_ITS | Encounter Summary ---
Author Organization [facility] Address [address] [place] [address] Care Team Providers Care Facility Service Manager Name Role Phone Enedina Mcguire NP Primary Care Provider + [phone] Maureen Pantoja RN Unavailable Unavail able Source [...] release of HIV test results or diagnoses. [id number] Health Encounter Details Date Type Department Care Team (Late st Contact Info) Description 12/09/2024 Orders Only [facility] Liver Transplant at [address] [place] [address] Maureen Pantoja, RN Social History Tobacco Use [...] Recorded In the past 12 months has [employer], gas, oil, or water [employer] threatened to shut off services in your [...] documented as of this encounter Care Teams Facility Service Manager Relationship Specialty Start Date End Date Enedina Mcguire NP [address] [place] [address] PCP - General Internal Medicine 10/05/24 Maureen Pantoja, ЮЛИЯ Txp Post Coordinator Transplant Hepatology 10/28/24 documented as of this encounter
--- OUTSIDE RECORDS SUMMARY | 2025-01-09 12:28 | XMS_ITS | Clinical Summary ---
Author Organization [facility] Address [address] [place] [id number] Care Team Providers Care Wind Farm Engineer Name Role Phone Enedina Mcguire APRN [...] Encounters Date Type Department Care Team Description 01/08/2025 Telephone [facility] [address] [facility] [address] [place] [address] Vazquez Christie PA-C Appointment 01/01/2025 2:15 PM EDT Office Visit [facility] [address] [facility] [address] [place] [address] Vazquez Christie PA-C Cervical radiculopathy (Primary Dx); Long-term use of high-risk medication; Cervical spondylosis without myelopathy; Cervical pain (neck); Therapeutic drug monitoring; Chronic pain syndrome 01/01/2025 Travel 12/12/2024 Refill [facility] [address] [place] [address] Enedina Mcguire APRN Acquired hypothyroidism; Secondary esophageal varices without bleeding 12/05/2024 Telephone [facility] [address] [place] [phone] Vazquez Christie PA-C 12/04/2024 2:55 PM EDT Lab [facility] [place] [address] [facility] [address] [place] [address] Therapeutic drug monitoring 12/04/2024 2:15 PM EDT Office Visit [facility] [address] [facility] [address] [place] [address] Vazquez Christie PA-C Cervical radiculopathy (Primary Dx); Long-term use of high-risk medication; Cervical pain (neck); Cervical spondylosis without myelopathy; Therapeutic drug monitoring; Chronic pain syndrome 12/04/2024 Travel 10/27/2024 Telephone [facility] [address] [place] [address] Enedina Mcguire APRN CALLBACK 10/22/2024 2:15 PM EDT Office Visit [facility] [address] [facility] [address] [place] [phone] Vazquez Christie PA-C Cervical radiculopathy (Primary Dx); Cervical spondylosis without myelopathy; Cervical pain (neck); Long-term use of high-risk medication; Therapeutic drug monitoring 10/22/2024 Travel 10/21/2024 Telephone [facility] [address] [place] [address] Enedina Mcguire APRN New Med Request 10/20/2024 Telephone [facility] [address] [phone] BURGESS - RX REFILL 10/20/2024 Telephone [facility] [address] [place] [address] Enedina Mcguire APRN Med Management 10/20/2024 Refill [facility] [address] [place] [phone] Enedina Mcguire APRN Hepatic encephalopathy; Acquired hypothyroidism; Secondary esophageal varices without bleeding 10/17/2024 Telephone [facility] [address] [place] [address] Enedina Mcguire APRN from Last 3 Months Immunizations Immunization Administration [...] alcohol) 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 [facility] Utilities Answer Date Recorded In the past 12 months has [employer], gas, oil, or water company threatened to [...] Description 04/02/2025 2:15 PM EST Office Visit [facility] [address] [place] [address] Vazquez Christie PA-C [address] [facility] [address] [place] [address] Health Maintenance Due Date Last Done Comments [...] 0-49 Discontinued Medical Devices Implanted Type Area Technology Applications Consultant Device Identifier Shelf Expiration Date Model / Serial / Lot Coil Concerto Pgla Hel Detach Sys 10mm 30cm - [id number] Implanted:Qty: 1 on 07/03/2022 by Timmy Brunner MD at [facility] Implant Left: Vein EV3 A [employer] [id number] / / [id number] Description:Coil is in the s hort gastric vein Coil Concerto Nyl Drayton Detach Sys 10mm 30cm - [id number] Implanted:Qty: 1 on 07/03/2022 by Timmy Brunner MD at [facility] Implant Left: Vein EV3 A [employer] [id number] / / [id number] Description:Short gastric ve in Coil Concerto Nyl Drayton Detach Sys 10mm 30cm - [id number] Implanted:Qty: 1 on 07/03/2022 by Timmy Brunner MD at [facility] Implant Left: Vein EV3 A [employer] [id number] / / [id number] Description:Short gasrtic ve in Coil Concerto Nyl Drayton Detach Sys 10mm 30cm - [id number] Implanted:Qty: 1 on 07/03/2022 by Timmy Brunner MD at [facility] Implant Left: Vein EV3 A [employer] [id number] / / [id number] Description:Short gastric ve in Coil Concerto Nyl Drayton Detach Sys 8mm 30cm - [id number] Implanted:Qty: 1 on 07/03/2022 by Timmy Brunner MD at [facility] Implant Left: Vein EV3 [employer] [id number] / / [id number] Description:Short gastric ve in Coil Concerto Nyl Drayton Detach Sys 8mm 30cm - [id number] Implanted:Qty: 1 on 07/03/2022 by Timmy Brunner MD at [facility] Implant Left: Vein EV3 A [employer] [id number] / / [id number] Description:Short gastric ve in Sys Del Liq Emb Trufill Nbca 1g Vl - [id number] Implanted:Qty: 1 on 07/03/2022 by Timmy Brunner MD at [facility] Implant Left: Vein [facility] [id number] / / [id number] Description:Short gastric ve in Plug Vasc Anton Emb Ampltz .027 6pz4a98hy - [id number] Implanted:Qty: 1 on 07/03/2022 by Timmy Brunner MD at [facility] Implant Left: Vein [employer] [id number] / / [id number] Description:Coronary vein Coil Concerto Nyl Drayton Detach Sys 8mm 30cm - [id number] Implanted:Qty: 1 on 07/03/2022 by Timmy Brunner MD at [facility] Implant Left: Vein EV3 [employer] [id number] / / [id number] Description:CORONARY VEIN Gelatin Emb Embocube 5.02mm 50mg Red - [id number] Implanted:Qty: 1 on 07/03/2022 by Timmy Brunner MD at [facility] Implant Left: Vein [facility] [id number] / / [id number] Description:SHORT GASTRIC VE IN Coil Emb Dona 3.7/Lp .035in 14cm 12mm - [id number] Implanted:Qty: 1 on 07/03/2022 by Timym Brunner MD at [facility] Implant Left: Vein [employer] [id number] / / [id number] Description:SHORT GASTRIC VE IN Coil Concerto Pgla Drayton Detach Sys 12mm 30cm - [id number] Implanted:Qty: 1 on 07/03/2022 by Timmy Brunner MD at [facility] Implant Left: Vein EV3 A [employer] [id number] / / [id number] Description:Short gastric ve in Coil Concerto Nyl Drayton Detach Sys 8mm 30cm - [id number] Implanted:Qty: 1 on 07/03/2022 by Timmy Brunner MD at [facility] Implant Left: Vein EV3 A [employer] [id number] / / [id number] Description:SHORT GASTRIC VE IN Coil Concerto Nyl Drayton Detach Sys 8mm 30cm - [id number] Implanted:Qty: 1 on 07/03/2022 by Timmy Brunner MD at [facility] Implant Left: Vein EV3 A [employer] [id number] / / [id number] Description:Short gastric ve in Coil Concerto Nyl Drayton Detach Sys 8mm 30cm - [id number] Implanted:Qty: 1 on 07/03/2022 by Timmy Brunner MD at [facility] Implant Left: Vein EV3 [employer] [id number] / / [id number] Description:Short gastric ve in Coil Concerto Pgla Hel Detach Sys 14mm 40cm - [id number] Implanted:Qty: 1 on 07/03/2022 by Timmy Brunner MD at [facility] Implant Left: Vein EV3 A [employer] [id number] / / [id number] Description:Short gastric ve in Coil Concerto Pgla Hel Detach Sys 14mm 40cm - [id number] Implanted:Qty: 1 on 07/03/2022 by Timmy Brunner MD at [facility] Implant Left: Vein EV3 [employer] [id number] / / [id number] Description:Short gastric ve in Coil Concerto Pgla Drayton Detach Sys 14mm 30cm - [id number] Implanted:Qty: 1 on 07/03/2022 by Timmy Brunner MD at [facility] Implant Left: Vein EV3 A [employer] [id number] / / [id number] Description:Short gastric ve in Coil Concerto Pgla Drayton Detach Sys 14mm 30cm - [id number] Implanted:Qty: 1 on 07/03/2022 by Timmy Brunner MD at [facility] Implant Left: Vein EV3 A [employer] [id number] / / [id number] Description:Short gastric ve in Coil Concerto Pgla Drayton Detach Sys 14mm 30cm - [id number] Implanted:Qty: 1 on 07/03/2022 by Timmy Brunner MD at [facility] Implant Left: Vein EV3 A [employer] [id number] / / [id number] Description:Short gastric ve in Procedures Procedure Name [...] - LABS 11/06/2024 SCANNED - IMAGING 10/17/2024 HEPATITIS PANEL, ACUTE Add-On 07/08/2024 10:33 PM EST LIPID PANEL Routine 10/15/2023 4:16 PM EDT Mixed hyperlipidemia from Last 3 Months or Most Recently Relevant to Health Maintenance Results * LABS SCANNED (12/08/2024) Only the most recent of20 resultswithin the time period is included. Enedina Mcguire SAMPLE EXAMINER LAB BLOOD ORDERABLES Fin al Result * (ABNORMAL) Urine Drug Screen - Urine, Clean Catch (12/04/2024 2:50 PM EDT) THC, Screen, Urine Positive(A) Negative 12/04 8:32 PM EDT [facility] Phencyclidine (PCP), Urine Negative Negative 12/04/2024 8:32 PM EDT [facility] Cocaine Screen, Urine Negative Negative 12/04/2024 8:32 PM EDT [facility] Methamphetamine, Ur Negative Negative 12/04/2024 8:32 PM EDT [facility] Opiate Screen Positive(A) Negative 12/04/2024 8:32 PM EDT [facility] Amphetamine Screen, Urine Negative Negative 12/04/2024 8:32 PM EDT [facility] Benzodiazepine Screen, Urine Negative Negative 12/04/2024 8:32 PM EDT [facility] Tricyclic Antidepressants Screen Negative Negative 12/04/2024 8:32 PM EDT [facility] Methadone Screen, Urine Negative Negative 12/04/2024 8:32 PM EDT [facility] Barbiturates Screen, Urine Negative Negative 12/04/2024 8:32 PM EDT [facility] Oxycodone Screen, Urine Negative Negative 12/04/2024 8:32 PM EDT [facility] Buprenorphine, Screen, Urine Negative Negative 12/04/2024 8:32 PM EDT [facility] Urine Urine specimen obtained by clean catch procedure / Unknown Collection / Unknown 12/04/2024 2:50 PM EDT 12/04/2024 2:54 PM EDT [facility] - 12/04/2024 8:32 PM [...] particularly when unconfirmed results are used. Vazquez JACOME-Lalit URINE ORDERABLES Final R esult [facility]
[address] [place] [address], * Fentanyl, Urine - Urine, Clean Catch (12/04/2024 2:50 PM EDT) Fentanyl, Urine Negative Negative 12/04/2024 9:15 PM EDT [facility] Urine Urine specimen obtained by clean catch procedure / Unknown Collection / Unknown 12/04/2024 2:50 PM EDT 12/04/2024 2:54 PM EDT [facility] - 12/04/2024 9:15 PM EDT Negative [...] Christie PA-C URINE ORDERABLES Final R esult [facility]
[address] [place] [address], * IMAGING SCANNED (10/17/2024) Anatomical Region Laterality Modality Radiographic Rachel ging Enedinanaty Mcguire SAMPLE EXAMINER IMG DIAGNOSTIC IMAGING O RDERABLES Final Result * (ABNORMAL) Lipid Panel (10/15/2023 4:16 PM EDT) Total Cholesterol 234(H) 0 - 200 mg/dL 10/16/2023 2:33 AM EDT [facility] Triglycerides 203(H) 0 - 150 mg/dL 10/16/2023 2:33 AM EDT [facility] HDL Cholesterol 41 40 - 60 mg/dL 10/16/2023 2:33 AM EDT [facility] LDL Cholesterol 156(H) 0 - 100 mg/dL 10/16/2023 2:33 AM EDT [facility] VLDL Cholesterol 37 5 - 40 mg/dL 10/16/2023 2:33 AM EDT [facility] LDL/HDL Ratio 3.72 10/16/2023 2:33 AM EDT [facility] Blood Venipuncture / Unknown 10/15/2023 4:16 PM EDT 10/15/2023 4:16 PM EDT Narrative [facility] - 10/16/2023 2:33 AM EDT Cholesterol Reference Ranges (U.S. Department of Health and Human Services ATP III Classifications) Desirable <200 mg/dL Borderline High 200-239 mg/dL High Risk >240 mg/dL Triglyceride Reference Ranges (U.S. Department of Health and Human Services ATP III Classifications) Normal <150 mg/dL Borderline High 150-199 mg/dL High 200-499 mg/dL Very High >500 mg/dL HDL Reference Ranges (U.S. Department of Health and Human Services ATP III Classifications) Low <40 mg/dl (major risk factor for CHD) High >60 mg/dl ('negative' risk factor for CHD) LDL Reference Ranges (U.S. Department of Health and Human Services ATP III Classifications) Optimal <100 mg/dL Near Optimal 100-129 mg/dL Borderline High 130-159 mg/dL High 160-189 mg/dL Very High >189 mg/dL Enedina Mcguire APRN LAB BLOOD ORDERABLES Fin al Result [facility]
[address] [place] [address], from Last 3 Months or Most Recently Relevant to Health Maintenance Insurance R Advance Directives * CPR (Attempt to Resuscitate) [...] Of Support Discussed With: Patient Care Teams Wind Farm Engineer Relationship Specialty Start Date End Date Enedina Mcguire APRN [address] [place] [address] PCP - General Nurse Practitioner 10/27/24
--- OUTSIDE RECORDS SUMMARY | 2025-01-09 12:28 | XMS_ITS | Encounter Summary ---
Author Organization Healthcare Address [address] [place] [address] Care Team Providers Care Finding Fastener Name Role Phone Jony Conde MD Primary Care Provider [phone] Lj Tapia DOG WALKER Unavailable [phone] Enedina Mcguire DOG WALKER Primary Care Provider + Nuria Fall VEHICLE OPERATOR TECHNICIAN Unavailable Unavaila ble Encounter Details Date Type Department Care Team (Late st Contact Info) Description 07/04/2022 Orders Only External Location [address] [place] [address] Presley Montes De Oca MD [address] [place] [id number] Social History Tobacco Use Types Packs/Day Years [...] on filedocumented in this encounter Care Teams Finding Fastener Relationship Specialty Start Date End Date Jony Conde MD [address] [facility] [address] [place] [address] PCP - General 07/18/22 12/03/22 Enedina Mcguire APRN [address] [place] [address] PCP - General 12/04/22 Lj Tapia APRN [address] [place] [address] Referring Physician Gastroenterology 07/18/22 Nuria Fall LPN [facility] TCM Nurse 07/24/24 08/23/24 documented as of this encounter
--- OUTSIDE RECORDS SUMMARY | 2025-01-09 12:28 | XMS_ITS | Encounter Summary ---
Author Organization [facility] Address [address] [place] [address] Care Team Providers Care Locks Tender Name Role Phone Enedina Mcguire APRN [...] alcohol) 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 [facility] Utilities Answer Date Recorded In the past 12 months has [employer], gas, oil, or water [employer] threatened to shut off services in your [...] Brief Depression Severity Measure Score 0 10/02/2022 [facility] [place] of Occupat ional Health - Occupational Stress [...] GED or equivalent No 07/09/2024 Preferred Language Cameroonian 07/09/2024 PHQ-2 Answer Date Recorded Patient Health [...] Description 04/02/2025 2:15 PM EST Office Visit [facility] [address] [address] Vazquez Christie PA-C [address] [place] [address] documented as of this encounter Visit Diagnoses Not on filedocumented in this encounter Additional Health Concerns Assessment Noted Time PHQ-2 Depression Total Score: 1 12/31/19 24 3:25 PM EDT documented as of this encounter Care Teams Locks Tender Relationship Specialty Start Date End Date Enedina Mcguire APRN [address] [place] [address] PCP - General Nurse Practitioner 10/27/24 documented as of this encounter
--- OUTSIDE RECORDS SUMMARY | 2025-01-09 12:28 | XMS_ITS | Encounter Summary ---
Author Organization [facility] Address [address] [place] [address] Care Team Providers Care Preschool Teacher Assistant Name Role Phone Enedina Mcguire NP Primary Care Provider + [phone] Maureen Pantoja RN Unavailable Unavail able Source [...] release of HIV test results or diagnoses. [id number] Health Encounter Details Date Type Department Care Team (Late st Contact Info) Description 12/09/2024 Chart Note [facility] Liver Transplant at [address] [place] [phone] Marlene Ro MA Social History Tobacco Use [...] Recorded In the past 12 months has [employer], gas, oil, or water [employer] threatened to shut off services in [...] No growth URINE SPECIMEN / Unknown Result [facility] Provider MICROBIOLOGY - GENERAL OR DERABLES Final Result * (ABNORMAL) Magnesium (12/08/2024 10:43 AM EDT) Pathologist [facility] Magnesium 1.3(A) 1.6 - 2.4 mg/dL Plasma Narrative Resulting Agency Comment [facility] Result [facility] LAB BLOOD ORDERABLES Denisse l Result * (ABNORMAL) Renal Function Panel w/o EGFR (12/08/2024 10:43 AM EDT) Pathologist [facility] Glucose 83 mg/dL BUN 21 4 - [...] 5.0 g/dL Blood Narrative Resulting Agency Comment [facility] Result [facility] LAB BLOOD ORDERABLES Denisse l Result * Creatinine, urine, random (12/08/2024 10:43 AM EDT) [facility] Creatinine, Urine 65 Urine Narrative Resulting Agency Comment [facility] Result [facility] Provider URINE ORDERABLES Final Re sult * Urinalysis w/Rfl to Microscopic (12/08/2024 10:43 AM EDT) Pathologist [facility] Glucose, UA Negative Negative Ketones, UA Negative Negative Blood, UA Negative Negative Bilirubin, UA Negative Negative Urobilinogen, UA Normal Normal Protein, UA Negative Negative Nitrite, UA Negative Negative Leukocyte Esterase, UA Negative Negative pH, UA 6.0 4.5 - 8.0 Specific [place], UA 1.010 1.005 - 1.030 Clarity, UA Clear Clear Color, UA Yellow Light Yellow, Yellow Urine Narrative Resulting Agency Comment [facility] Result [facility] Provider URINE ORDERABLES Final Re sult * Urine Protein, Tot, Random (w/o Creat) (12/08/2024 10:43 AM EDT) Total Protein, Ur 11.0 Urine Narrative Resulting Agency Comment [facility] Result [facility] Provider URINE ORDERABLES Final Re sult * (ABNORMAL) Hepatic Function Panel (12/08/2024 10:43 AM EDT) Pathologist [facility] Bilirubin, Direct 0.1 Bilirubin, Indirect 0.2 Alkaline Phosphatase 80 U/L ALT 14 U/L AST 16 U/L Total Bilirubin 0.3 0.1 - 1.4 mg/dL Total Protein 5.6(A) 6.4 - 8.2 g/dL Plasma Narrative Resulting Agency Comment [facility] Result [facility] Provider LAB BLOOD ORDERABLES Denisse l [...] 5.1 10^3/mL Blood Narrative Resulting Agency Comment [facility] us Historical Provider LAB BLOOD ORDERABLES Denisse l Result documented in this encounter Visit Diagnoses Not on filedocumented in this encounter Additional Health Concerns Infection Onset Date Last Indicated Resolved Time 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
--- OUTSIDE RECORDS SUMMARY | 2025-01-09 12:28 | XMS_ITS | Encounter Summary ---
Author Organization Healthcare Address [address] [place] [address] Care Team Providers Care Pump Station Operator Name Role Phone Jony Conde MD Primary Care Provider [phone] Lj Tapia COLLEGE COUNSELOR Unavailable [phone] Enedina Mcguire APRN Primary Care Provider + Nuria Fall EX CHEF Unavailable Unavaila ble Encounter Details Date Type Department Care Team (Late st Contact Info) Description 07/02/2022 Orders Only External Location [address] [place] [address] Provider, External Social History Tobacco Use Types [...] on filedocumented in this encounter Care Teams Pump Station Operator Relationship Specialty Start Date End Date Jony Conde MD [address] [facility] [address] [place], [place] [id number] PCP - General 07/18/22 12/03/22 Enedina Mcguire APRN [address] [place] [address] PCP - General 12/04/22 Lj Tapia APRN [address] [place] [address] Referring Physician Gastroenterology 07/18/22 Nuria Fall LPN [facility] TCM Nurse 07/24/24 08/23/24 documented as of this encounter
--- OUTSIDE RECORDS SUMMARY | 2025-01-09 12:28 | XMS_ITS | Encounter Summary ---
Author Organization [facility] Address [address] [place] [address] Care Team Providers Care Mortgage Loan Computation Clerk Name Role Phone Enedina Mcguire NP Primary Care Provider + [phone] Maureen Pantoja RN Unavailable Unavail able Source [...] release of HIV test results or diagnoses. [id number] Reason for Referral * Diagnostic Lab (Routine) - New Request Specialty Diagnoses / Procedures Referred By Shane hernadez Referred To Contact Diagnoses Kidney transplant recipient Liver transplant recipient (CMS-HCC) Viral disease exposure Immunosuppression ([facility]-H[facility]) Procedures BK Virus Quantitative by PCR, Blood [facility] Liver Transplant at [address] [address] Phone: tel: fax: Referral ID Status Reason Start Date Expiration Date V isits Requested Visits Authorized [id number] New Request 12/09/2024 06/07/2025 1 1 * Diagnostic Lab (Routine) - New Request Specialty Diagnoses / Procedures Referred By Contac t Referred To Contact Diagnoses Kidney transplant recipient Liver transplant recipient (CMS-HCC) Viral disease exposure Immunosuppression (CMS-HCC) Procedures BK Virus Quantitative by PCR, Blood [facility] Liver Transplant at [address] [address] Phone: tel: fax: Referral ID Status Reason Start Date Expiration Date V isits Requested Visits Authorized [id number] New Request 12/09/2024 06/07/2025 1 1 * Diagnostic Lab (Routine) - New Request Specialty Diagnoses / Procedures Referred By Contac t Referred To Contact Diagnoses Kidney transplant recipient Liver transplant recipient (CMS-HCC) Viral disease exposure Immunosuppression (CMS-HCC) Procedures BK Virus Quantitative by PCR, Blood [facility] Liver Transplant at [address] [address] Phone: tel: fax: Referral ID Status Reason Start Date Expiration Date V isits Requested Visits Authorized [id number] New Request 12/09/2024 06/07/2025 1 1 * Diagnostic Lab (Routine) - New Request Specialty Diagnoses / Procedures Referred By Contac t Referred To Contact Diagnoses Kidney transplant recipient Liver transplant recipient (CMS-HCC) Viral disease exposure Immunosuppression (CMS-HCC) Procedures BK Virus Quantitative by PCR, Blood [facility] Liver Transplant at [address] [address] Phone: tel: fax: Referral ID Status Reason Start Date Expiration Date V isits Requested Visits Authorized [id number] New Request 12/09/2024 06/07/2025 1 1 Encounter Details Date Type Department Care Team (Late st Contact Info) Description 12/09/2024 Orders Only [facility] Liver Transplant at [address] [place] [address] Maureen Pantoja RN Kidney transplant [...] as 4 glasses of wine a days [employer] Answer Date Recorded In the past 12 months has th e [employer], gas, oil, or water company threatened to [...] Routine Kidney transplant recipient Liver transplant recipient ([facility]-HCC) Viral disease exposure Immunosuppression ([facility]-HCC) Expected: 01/27/2025 (Approximate), Expires: 06/11/2026 BK Virus Quantitative by PCR, Blood Lab Routine Kidney transplant recipient Liver transplant recipient ([facility]-HCC) Viral disease exposure Immunosuppression (CMS-HCC) Expected: 04/28/2025 (Approximate), Expires: 06/11/2026 BK Virus Quantitative by PCR, Blood Lab Routine Kidney transplant recipient Liver transplant recipient ([facility]) Viral disease exposure Immunosuppression ([facility]-H[facility]) Expected: 07/27/2025 (Approximate), Expires: 06/11/2026 BK Virus Quantitative by PCR, Blood Lab Routine Kidney transplant recipient Liver transplant recipient ([facility]) Viral disease exposure Immunosuppression ([facility]) Expected: 10/27/2025 (Approximate), Expires: 06/11/2026 documented as [...] documented as of this encounter Care Teams Mortgage Loan Computation Clerk Relationship Specialty Start Date End Date Enedina Mcguire NP [address] [place], [place] [id number] PCP - General Internal Medicine 10/05/24 Maureen Pantoja, ЮЛИЯ Txp Post Coordinator Transplant Hepatology 10/28/24 documented as of this encounter
--- OUTSIDE RECORDS SUMMARY | 2025-01-09 12:28 | XMS_ITS | Encounter Summary ---
Author Organization [facility] Address [address] [place] [address] Care Team Providers Care Business Division Chair Name Role Phone Enedina Mcguire APRN Primary Care Provider + Encounter Details Date Type Department Care Team (Late st Contact Info) Description 12/05/2024 Telephone [facility] PAIN [facility]GEMENT [address] [address] Vazquez Christie PA-C [address] [place] [address] Social History Tobacco Use Types Packs/Day Years Used Date Smoking Tobacco: Former Cigarettes 4 20 Passive Smoke Exposure: Past Smokeless Tobacco: Current Comments:MARIJUANA USE ABOUT 2X PER WEEK - reports no use 08-05-2024 Alcohol Use Standard Drinks/Week Comments Not Currently 0 (1 standard drink = 0.6 oz pure alcohol) 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 [facility] Utilities Answer Date Recorded In the past 12 months has [employer], [employer], oil, or water [employer] threatened to shut off services in your [...] Score 0 10/02/2022 [facility] - Occupational Stress Questionnaire [...] Upcoming Encounters Date Type Department Care Team ([facility] st Contact Info) Description 04/02/2025 2:15 PM EST Office Visit [facility] PAIN [facility]EMENT [address] [facility] [address] [place] [address] Vazquez Christie PA-C [address] [facility] [address] [place] [address] documented as of this encounter Visit Diagnoses Not on filedocumented in this encounter Additional Health Concerns Assessment Noted Time PHQ-2 Depression Total Score: 1 12/31/19 24 3:25 PM EDT documented as of this encounter Care Teams Business Division Chair Relationship Specialty Start Date End Date Enedina Mcguire APRN [address] [place] [address] PCP - General Nurse Practitioner 10/27/24 documented as of this encounter
--- OUTSIDE RECORDS SUMMARY | 2025-01-09 12:30 | XMS_ITS | Clinical Summary ---
Author Organization [employer] ([place], [place], [place], [place]) Address [address] [place] [address] Care Team Providers Care Education Supervisor Name Role Phone Unavailable Primary Care [...]
--- OUTSIDE RECORDS SUMMARY | 2025-01-09 12:30 | XMS_ITS | Encounter Summary ---
Author Organization [facility] Address [address] [place] [address] Care Team Providers Care Barrel Ribs Solderer Name Role Phone Enedina Mcguire NP Primary Care Provider + [phone] Alicia Rankin RN Unavailable Unavail able Source [...] release of HIV test results or diagnoses. [id number] Reason for Visit * Reason Comments Results Medication Dose Change Encounter Details Date Type Department Care Team (Late st Contact Info) Description 12/22/2024 Telephone [facility] Liver Transplant at [address] [address] Alicia Rankin, ЮЛИЯ Results; Medication [...] Recorded In the past 12 months has [employer], gas, oil, or water company threatened to [...] for therapeutic drug monitoring S/P liver transplant (

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
--- OUTSIDE RECORDS SUMMARY | 2025-01-09 12:30 | XMS_ITS | Encounter Summary ---
Author Organization [facility] Address [address] [place] [address] Care Team Providers Care Enterprise Application Architect Name Role Phone Enedina Mcguire NP Primary Care Provider + [phone] Maureen Pantoja RN Unavailable Unavail able Source [...] release of HIV test results or diagnoses. [id number] Reason for Visit * Reason Comments Results Encounter Details Date Type Department Care Team (Late st Contact Info) Description 12/29/[address] [facility] Liver Transplant at [address] [address] Maureen Pantoja, RN Results Social [...] In the past 12 months has e [employer], gas, oil, or water [employer] threatened to shut off services in your [...] documented as of this encounter Care Teams Enterprise Application Architect Relationship Specialty Start Date End Date Enedina Mcguire NP [address] [place] [address] PCP - General Internal Medicine 10/05/24 Maureen Pantoja, RN Txp Post Coordinator Transplant Hepatology 10/28/24 documented as of this encounter
--- OUTSIDE RECORDS SUMMARY | 2025-01-09 12:30 | XMS_ITS | Encounter Summary ---
Author Organization [employer] ([place], [place], [place], [place]) Address [address] [place] [address] Care Team Providers Care Tiler'S Assistant Name Role Phone Unavailable Primary Care Provider Unavailabl e Encounter Details Date Type Department Care Team (Late st Contact Info) Description 06/03/2018 Transcribed Document [facility] [address] [place] [address] ProviderEbenezer MD [address] [place], [place] [id number] Social History Tobacco Use Types Packs/Day Years [...] - Historical ProviderMD - 06/03/2018 2:24 PM AUTOMATIC HEMMER documented in this encounter Plan of Treatment Not on file documented as of this encounter Visit Diagnoses Not on filedocumented in this encounter
--- OUTSIDE RECORDS SUMMARY | 2025-01-09 12:30 | XMS_ITS | Encounter Summary ---
Author Organization [employer] ([place], [place], [place], [place]) Address [address] [place] [address] Care Team Providers Care Detective Homicide Squad Name Role Phone Unavailable Primary Care Provider Unavailabl e Encounter Details Date Type Department Care Team (Late st Contact Info) Description 06/03/2018 Transcribed Document [facility] [address] [place] [address] ProviderEbenezer MD [address] [place], [place] [id number] Social History Tobacco Use Types Packs/Day Years [...] - Historical ProviderMD - 06/03/2018 3:03 PM GRANITE CUTTER ED Discharge Entered On: 06/03/2018 15:03 EST Performed On: 06/03/2018 15:03 EST by Lizeth Almeida, paradi tender Process Patient Disposition : Discharge Personal Belongings [...] 15:03 EST Electronically signed by Gabriela [facility] Conversion Fish Protector Celia at 08/29/2022 6:35 PM CDT documented in this encounter Plan of Treatment Not on file documented as of this encounter Visit Diagnoses Not on filedocumented in this encounter
--- OUTSIDE RECORDS SUMMARY | 2025-01-09 12:30 | XMS_ITS | Encounter Summary ---
Author Organization [facility] Address [address] [place] [address] Care Team Providers Care Property Custodian Name Role Phone Enedina Mcguire NP Primary Care Provider + [phone] Maureen Pantoja RN Unavailable Unavail able Source [...] release of HIV test results or diagnoses. [id number] Health Encounter Details Date Type Department Care Team (Late st Contact Info) Description 12/23/2024 Chart Note [facility] Liver Transplant at [address] [place] [phone] Maureen Pantoja, machinist/machine builder results from 12/23/24 entered from [facility]. Social History Tobacco Use Types Packs/Day Years Used Date Smoking Tobacco: Former Cigarettes Smokeless Tobacco: Current Alcohol Use Standard Drinks/Week Comments Yes 0 (1 standard drink = 0.6 oz pure alcohol) History of alcohol abuse, reports no use in 3 week- typically endorses use as 4 glasses of wine a days Utilities Answer Date Recorded In the past 12 months has [employer], gas, oil, or water [employer] threatened to shut off services in your [...] EDT Lab results from 12/23/24 entered from [facility]. documented in this encounter Plan of Treatment [...] w/o EGFR (12/23/2024 9:53 AM EDT) Pathologist [facility] Glucose 88 BUN 19 CO2 27(A) 13 - 22 mmol/L Creatinine 0.80 Potassium 4.2 Sodium 138 Chloride 105 Phosphorus 5.2(A) 2.5 - 4.9 mg/dL Calcium 9.2 EGFR 107 mg/dL Albumin 4.4 3.5 - 5.0 g/dL Blood us Harvey Domínguez III, MD LAB BLOOD ORDERABLE S Final Result * Protime-INR (12/23/2024 9:53 AM EDT) Pathologist [facility] INR 0.94 0.9 - 1.1 Protime 10.5 Plasma us Harvey Domínguez III, MD LAB BLOOD ORDERABLE S Final Result * (ABNORMAL) CBC and differential (12/23/2024 9:53 AM EDT) Pathologist [facility] Hemoglobin 11.3(A) 13.5 - 17.5 g/dL Hematocrit [...] as of this encounter Care Teams Property Custodian Relationship Specialty Start Date End Date Enedina Mcguire NP [address] [place] [address] PCP - General Internal Medicine 10/05/24 Maureen Pantoja, ЮЛИЯ Txp Post Coordinator Transplant Hepatology 10/28/24 documented as of this encounter
--- OUTSIDE RECORDS SUMMARY | 2025-01-09 12:30 | XMS_ITS | Encounter Summary ---
Author Organization [facility] Address [address] [place] [address] Care Team Providers Care Temple Meat Cutter Name Role Phone Enedina Mcguire NP Primary Care Provider + [phone] Maureen Pantoja RN Unavailable Unavail able Source [...] release of HIV test results or diagnoses. [id number] Health Encounter Details Date Type Department Care Team (Late st Contact Info) Description 12/17/2024 Chart Note [facility] Liver Transplant at [address] [place] [phone] Marlene Ro MA 12/16 Labs entered [facility] Social History Tobacco Use Types Packs/Day Years Used Date Smoking Tobacco: Former Cigarettes Smokeless Tobacco: Current Alcohol Use Standard Drinks/Week Comments Yes 0 (1 standard drink = 0.6 oz pure alcohol) History of alcohol abuse, reports no use in 3 week- typically endorses use as 4 glasses of wine a days Utilities Answer Date Recorded In the past 12 months has e [employer], gas, oil, or water [employer] threatened to shut off services in your [...] 12/17/2024 10:44 AM EDT 12/16 Labs entered [facility] documented in this encounter Plan of [...] 2.4 mg/dL Plasma Narrative Resulting Agency Comment [facility] Historical Provider MD LAB BLOOD ORDERABLES [...] Narrative Resulting Agency Comment [facility] Result [facility] MD LAB BLOOD ORDERABLES Denisse l Result * Protime-INR (12/16/2024 10:05 AM EDT) Pathologist [facility] INR 0.95 0.9 - 1.1 Plasma Narrative Resulting Agency Comment [facility] Result [facility] MD LAB BLOOD [...] 4.8 10^3/mL Blood Narrative Resulting Agency Comment [facility] Result [facility] MD LAB BLOOD ORDERABLES Denisse l Result * Hepatic Function Panel (12/16/2024 10:05 AM EDT) Bilirubin, Direct 0.2 Bilirubin, Indirect 0.2 Alkaline Phosphatase 73 ALT 15 AST 19 Total Bilirubin 0.4 Total Protein 6.2 Plasma Narrative Resulting Agency [facility] [...] documented as of this encounter Care Teams Temple Meat Cutter Relationship Specialty Start Date End Date Enedina Mcguire NP [address] [place] [address] PCP - General Internal Medicine 10/05/24 Maureen Pantoja, ЮЛИЯ Txp Post Coordinator Transplant Hepatology 10/28/24 documented as of this encounter
--- OUTSIDE RECORDS SUMMARY | 2025-01-09 12:30 | XMS_ITS | Encounter Summary ---
Author Organization [employer] ([place], [place], [place], [place]) Address [address] [place] [address] Care Team Providers Care Seasonal Clerk Name Role Phone Unavailable Primary Care Provider Carmen e Encounter Details Date Type Department Care Team (Late st Contact Info) Description 06/03/2018 Transcribed Document [facility] [place] Medicine [address] [place] [address] ProviderEbenezer MD [address] [place] [address] Social History Tobacco Use Types [...] - Historical ProviderMD - 06/03/2018 3:04 PM FOOTWEAR PRODUCTION MACHINE OPERATOR [address] [place] [address] Patient Information Name: JULIEN ZELAYA [...] [address] [place] [address] [place] [address] [employer] (1) Within 2 to 3 days Patient [...] off of the skin. General Instructions??? Take qhqs-ysw-dlpfcoe and prescription medicines only as told by [...] 04/30/2006 Document Revised: 09/29/2016 Document Reviewed: 04/26/2015 [employer] Interactive Patient Education ? 2017 [employer] Allergies: No Known Medication Allergies Medication [...] verify that [facility] ,06[facility]03/2018 15:04:17. [...] Assistance with quitting is available by contacting 7-840-IFOC-NOW. This is a free resource providing counseling, [...] Electronic Communications Privacy Act 18 U.S.C. ???Sections 5723-9897,?? and contain information intended for the specified [...] sure to sign up for the [facility] patient portal, which gives you 04/12 access to your medical information ??? including these discharge instructions ??? using your computer, smartphone, or tablet. Just go to [facility] to get started. Questions? Call . Acknowledgment [...] Electronically signed by Luis Eduardo Ochoa Conversion Electronic Console Display Operator Celia at 08/29/2022 6:45 PM CDT documented in this encounter Plan of Treatment Not on file documented as of this encounter Visit Diagnoses Not on filedocumented in this encounter
--- OUTSIDE RECORDS SUMMARY | 2025-01-09 12:30 | XMS_ITS | Encounter Summary ---
Author Organization [facility] Address [address] [place] [address] Care Team Providers Care Web Marketing Assistant Name Role Phone Enedina Mcguire NP Primary Care Provider [phone] Maureen Pantoja RN Unavailable Unavail able Source [...] release of HIV test results or diagnoses. [id number] Reason for Visit * Reason Comments Medication Refill Encounter Details Date Type Department Care Team (Late st Contact Info) Description 12/21/2024 Refill [facility] Liver Transplant at [address] [address] Lydia Sanchez MD [address] [place] [address] Liver/[place] [address] Encounter for therapeutic drug monitoring; S/P liver transplant ([facility]); Hypomagnesemia; Kidney transplant recipient; Hypertension, unspecified [...] for therapeutic drug monitoring S/P liver transplant ([facility]) Hypomagnesemia Disorders of magnesium metabolism Kidney transplant recipient Hypertension, unspecified type Gastroesophageal reflux disease, unspecified whether esophagitis present documented in this encounter Additional Health Concerns Infection Onset Date Last Indicated Resolved Time 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
--- OUTSIDE RECORDS SUMMARY | 2025-01-09 12:30 | XMS_ITS | Referral Summary ---
Author Organization [employer] ([place], [place], [place], [place]) Address [address] [place] [address] Care Team Providers Care Records And Tape Recordings Engineer Name Role Phone Unavailable Primary Care [...]
--- OUTSIDE RECORDS SUMMARY | 2025-01-09 12:30 | XMS_ITS | Encounter Summary ---
Author Organization [facility] Address [address] [place] [address] Care Team Providers Care Patrol Mother Name Role Phone Enedina Mcguire NP Primary Care Provider + [phone] Maureen Pantoja RN Unavailable Unavail able Source [...] release of HIV test results or diagnoses. [id number] Health Encounter Details Date Type Department Care Team (Late st Contact Info) Description 12/18/2024 Refill [facility] Liver Transplant at [address] [place] [phone] Maureen Pantoja, RN Encounter for therapeutic drug [...] Recorded In the past 12 months has [employer], gas, oil, or water [employer] threatened to shut off services in your [...] documented as of this encounter Care Teams Patrol Mother Relationship Specialty Start Date End Date Enedina Mcguire NP [address] [place] [address] PCP - General Internal Medicine 10/05/24 Maureen Pantoja, RN Txp Post Coordinator Transplant Hepatology 10/28/24 documented as of this encounter
--- OUTSIDE RECORDS SUMMARY | 2025-01-09 12:30 | XMS_ITS | Encounter Summary ---
Author Organization [facility] Address [address] [place] [id number] Care Team Providers Care Hospital Attendant Name Role Phone Enedina Mcguire NP Primary Care Provider + [phone] Maureen Pantoja RN Unavailable Unavail able Source [...] release of HIV test results or diagnoses. [id number] Health Encounter Details Date Type Department Care Team (Late st Contact Info) Description 11/18/2024 Chart Note [facility] Liver Transplant at [address] [place] [phone] Marlene Ro MA Social History Tobacco Use [...] Recorded In the past 12 months has [employer], gas, oil, or water [facility] [place] threatened to shut off services in your [...] 5.0 g/dL Blood Narrative Resulting Agency Comment [facility] us Historical Provider LAB BLOOD ORDERABLES Denisse l Result * Tacrolimus level (11/13/2024 8:44 AM EDT) Pathologist [facility] Tacrolimus Lvl 10.9 6 - 15 ng/mL Whole Blood Narrative Resulting Agency Comment [facility] Historical Provider LAB BLOOD ORDERABLES [...] 5.7 10^3/mL Blood Narrative Resulting Agency Comment [facility] Historical Provider LAB BLOOD ORDERABLES Denisse l Result * (ABNORMAL) Hepatic Function Panel (11/13/2024 8:44 AM EDT) Bilirubin, Direct 0.6 Bilirubin, Indirect 0.2 Alkaline Phosphatase 137 U/L ALT 29 U/L AST 20 U/L Total Bilirubin 0.8 0.1 - 1.4 mg/dL Total Protein 5.8(A) 6.4 - 8.2 g/dL Plasma Narrative Resulting Agency Comment [facility] Historical Provider LAB BLOOD ORDERABLES Denisse l Result documented in this encounter Visit Diagnoses Not on filedocumented in this encounter Additional Health Concerns Infection Onset Date Last Indicated Resolved Time 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
--- OUTSIDE RECORDS SUMMARY | 2025-01-09 12:30 | XMS_ITS | Encounter Summary ---
Author Organization [facility] ([place], [place], [place], [place]) Address [address] [place] [address] Care Team Providers Care Top Hat Body Maker Name Role Phone Unavailable Primary Care Provider Unavailabl e Encounter Details Date Type Department Care Team (Late st Contact Info) Description 06/03/2018 Transcribed Document [facility] Family Medicine [address] [place] [address] ProviderEbenezer MD [address] [place] [address] Social History Tobacco Use Types [...] - Historical ProviderMD - 06/03/2018 3:04 PM TUBE FILLER [address] [place] [address] PERSON INFORMATION Name JULIEN ZELAYA Age 33 Years 1985 Sex Male Language Ukrainian PCP SALLY EVERETT (REF) T Marital Status Single Med Service Emergency Medicine Acct# Arrival 06/03/2018 12:08:00 Visit Reason Finger laceration; CUT FINGERS Acuity 3 - Urgent LOS 000 02:56 Depart Date: 06/03/18 03:04 PM Address: [address] [facility] [phone] Comment: PROVIDER INFORMATION Provider Role Assigned Unassigned Lizeth Almeida, SCIENTIFIC INVESTIGATOR Nurse 06/03/2018 12:39:09 DOMINIQUE BREWER PA-C ED [...] PURI # [address]C [address] [place], [place] [id number] [employer] ([employer] Within 2 to 3 days Comment: documented in this encounter Plan of Treatment Not on file documented as of this encounter Visit Diagnoses Not on filedocumented in this encounter
--- OUTSIDE RECORDS SUMMARY | 2025-01-09 12:30 | XMS_ITS | Clinical Summary ---
Author Organization [facility] Address [facility] [place] [address] Care Team Providers Care Log Chipper Name Role Phone Enedina Mcguire NP Primary Care Provider + [phone] Maureen Pantoja RN Unavailable Unavail able Source [...] therelease of HIV test results or diagnoses. [id number] Active Allergy Reactions Criticality Noted [...] 10/18/19 25 10:24 AM EDT 025 Active magnesium chloride (SLOW MAG) 71.5 mg TbECIndications:hy pomagnesemia Take 2 tablets (143 mg total) by mouth 3 times a day. Indications: hypomagnesemia 180 tablet 2 025 02/02 Active Additional Information Patient taking differently:143 mg Oral2 times daily, Indications: hypomagnesemia, Reported on 01/06/2025 FLUoxetine (PROZAC) 20 MG capsule Take 1 capsule (20 mg total) by mouth daily. 30 capsule 2 025 Active acetaminophen (TYLENOL) 325 MG tabletIndications: Encounter for therapeutic drug monitoring,S/P liver transplant ([facility]),Hypomagn esemia,Kidney transplant recipient,Hyperten kevin, unspecified type,Gastroesophag eal reflux disease, unspecified whether esophagitis present Take 3 tablets (975 mg total) by mouth every 8 hours. 200 tablet 025 Active Additional Information Patient taking differently: 650 mgOralEvery 8 hours PRN, Pain, Reported on 01/06/2025 ergocalciferol (ERGOCALCIFEROL) 1,250 mcg (50,000 unit) capsuleIndications :Encounter for therapeutic drug monitoring,S/P liver transplant ([facility]),Hypomagn esemia,Kidney transplant recipient,Hyperten kevin, unspecified type,Gastroesophag eal reflux disease, unspecified whether esophagitis present Take 1 capsule (50,000 Units total) by mouth once a week. 4 capsule 2 Active famotidine (PEPCID) 20 MG tabletIndications: Encounter for therapeutic drug monitoring,S/P liver transplant ([facility]),Hypomagn esemia,Kidney transplant recipient,Hyperten kevin, unspecified type,Gastroesophag eal reflux disease, unspecified whether esophagitis present Take 1 tablet (20 mg total) by mouth 2 times a day. 60 tablet 2 Active sulfamethoxazole-t rimethoprim (BACTRIM) 400-80 mg per tabletIndications: Encounter for therapeutic drug monitoring,S/P liver transplant ([facility]),Hypomagn esemia,Kidney transplant recipient,Hyperten kevin, unspecified type,Gastroesophag eal reflux disease, unspecified whether esophagitis present Take 1 tablet by mouth daily. 30 tablet 2 025 Active gabapentin (NEURONTIN) 100 MG capsuleIndications :Encounter for therapeutic drug monitoring,S/P liver transplant ([facility]),Hypomagn esemia,Kidney transplant recipient,Hyperten kevin, unspecified type,Gastroesophag eal reflux disease, unspecified whether esophagitis present Take 1 capsule (100 mg total) by mouth 3 times a day. 90 capsule Active Additional Information Patient taking differently:100 mg Oral2 times daily, Reported on 01/06/2025 naltrexone (DEPADE) 50 mg tablet Take 1 tablet (50 mg total) by mouth daily. 30 tablet Active Additional Information Patient not taking.Reported on 01/06/2025 mycophenolate (CELLCEPT) 250 mg capsuleIndications :Encounter for therapeutic drug monitoring,S/P liver transplant ([facility]),Hypomagn esemia,Kidney transplant recipient,Hyperten kevin, unspecified type,Gastroesophag eal reflux disease, unspecified whether esophagitis present Take 2 capsules (500 mg total) by mouth 2 times a day. 120 capsule 5 Active valGANciclovir (VALCYTE) 450 mg tabletIndications: Encounter for therapeutic drug monitoring,S/P liver transplant ([facility]),Hypomagn esemia,Kidney transplant recipient,Hyperten kevin, unspecified type,Gastroesophag eal reflux disease, unspecified whether esophagitis present Take 2 tablets (900 mg total) by mouth daily. 60 tablet Active NIFEdipine (PROCARDIA-XL) 30 MG (OSM) 24 hr tabletIndications: Encounter for therapeutic drug monitoring,S/P liver transplant ([facility]),Hypomagn esemia,Kidney transplant recipient,Hyperten kevin, unspecified type,Gastroesophag eal reflux disease, unspecified whether esophagitis present Take 1 tablet by mouth once daily 30 tablet 2 Active tacrolimus (PROGRAF) 1 MG capsuleIndications :Prevention of Kidney Transplant Rejection,Preventi on of Liver Transplant Rejection Take 5 capsules (5 mg total) by mouth every morning AND 6 capsules (6 mg total) every evening. Use as directed. Indications: Prevention of Kidney Transplant Rejection, Prevention of Liver Transplant Rejection. 330 capsule 5 Active methocarbamoL (ROBAXIN) 500 MG tablet Take 2 tablets (1,000 mg total) by mouth 2 times a day as needed. 120 tablet Active predniSONE (DELTASONE) 5 MG tablet Take 1 tablet (5 mg total) by mouth daily. 90 tablet Active naloxone (NARCAN) 4 mg/actuation [place] Apply 1 spray in one nostril if needed. Call 911. May repeat dose in other nostril if no response in 3 minutes. 2 each 10/18/19 10:25 AM EDT 01/06 Discontinued( Therapy Completed / No Longer Needed) senna-docusate (SENNOSIDES-DOCUSA TE SODIUM) 8.6-50 mg per tablet Take 1 tablet by mouth at bedtime as needed for Constipation. 30 tablet 11/03/19 10:20 AM EDT 025 01/06 Discontinued( Therapy Completed / No Longer Needed) polyethylene glycol (GLYCOLAX) 17 gram/dose powder Mix one capful (17 grams) in 8 ounces of liquid and drink by mouth daily as needed (Constipation). 238 g 11/03/19 10:20 AM EDT 01/06 Discontinued( Therapy Completed / No Longer Needed) alcohol swabs PadM Use as instructed. 200 each 11/03/19 10:20 AM EDT 01/06 Discontinued( Therapy Completed / No Longer Needed) methocarbamoL (ROBAXIN) 500 MG tablet Take 2 tablets (1,000 mg total) by mouth 3 times a day. 180 tablet 11/03/19 10:20 AM EDT 12/18 Discontinued( Refill / Reorder) NIFEdipine (PROCARDIA-XL) 30 MG (OSM) 24 hr tabletIndications: Encounter for therapeutic drug monitoring,S/P liver transplant ([facility]),Hypomagn esemia,Kidney transplant recipient,Hyperten kevin, unspecified type,Gastroesophag eal reflux disease, unspecified whether esophagitis present Take 1 tablet (30 mg total) by mouth daily. 30 tablet 025 12/22 Discontinued mycophenolate (CELLCEPT) 250 mg capsuleIndications :Encounter for therapeutic drug monitoring,S/P liver transplant ([facility]),Hypomagn esemia,Kidney transplant recipient,Hyperten kevin, unspecified type,Gastroesophag eal [...] Encounter for therapeutic drug monitoring,S/P liver transplant ([facility]),Hypomagn esemia,Kidney transplant recipient,Hyperten kevin, unspecified type,Gastroesophag eal reflux disease, unspecified whether esophagitis present Take 2 tablets (900 mg total) by mouth daily. 60 tablet 2 025 12/18 Discontinued( Refill / Reorder) methocarbamoL (ROBAXIN) 500 MG tablet Take 2 tablets (1,000 mg total) by mouth in the morning and at bedtime. 120 tablet 025 01/06 Discontinued tacrolimus (PROGRAF) 1 MG capsuleIndications :Prevention of Kidney Transplant Rejection,Preventi on of Liver Transplant Rejection Take 6 capsules (6 mg total) by mouth 2 times a day. Use as directed Indications: Prevention of Kidney Transplant Rejection, Prevention of Liver Transplant Rejection 360 capsule 5 025 12/22 Discontinued( Refill / Reorder) predniSONE (DELTASONE) 5 MG tablet Take 1.5 tablets (7.5 mg total) by mouth daily. 45 tablet 1 025 01/06 Discontinued Active Problems Problem Noted Date Diagnosed [...] with SBP, s/p CTX x5d; will cont custodial ppx with Cipro 500mg daily - HE: [...] Type Department Care Team Description 01/08/2025 Telephone [facility] Liver Transplant at [address] [address] Maureen Pantoja, RN Results 01/06/2025 9:30 AM EDT Office Visit [facility] Liver Transplant at [address] [address] Leisa Juarez MD Kidney transplant recipient (Primary Dx); Hypomagnesemia; Hyperphosphatemia 01/06/2025 8:20 AM EDT Office Visit [facility] Liver Transplant at [address] [address] Cosmo Pacheco MD Paci, Philippe, MD S/P liver transplant ([facility]) (Primary Dx); Immunosuppression ([facility]); Kidney transplant recipient; Alcohol use disorder 01/06/2025 Social Work [facility] Liver Transplant at [address] [address] Kaylin Willard MSW 01/05/2025 Chart Note [facility] Liver Transplant at [address] [address] Marlene Ro MA 01/05 Labs entered from [facility] 01/05/2025 Telephone [facility] Liver Transplant at [address] [place] [phone] Marisela Martinez MA Critical Lab Results 01/05/2025 Telephone [facility] Liver Transplant at [address] [place] [address] Maureen Pantoja, RN Results 12/31/2024 Chart Note [facility] Liver Transplant at [address] [phone] Marlene Ro MA 12/31 Labs entered from [facility] 12/29/2024 Telephone [facility] Liver Transplant at [address] [address] Maureen Pantoja, RN Results 12/23/2024 Chart Note [facility] Liver Transplant at [address] [place] [address] Maureen Pantoja, property management intern results from 12/23/24 entered from [facility]. 12/22/2024 Telephone [facility] Liver Transplant at [address] [place] [address] Maureen Pantoja, RN Results; Medication Dose Change 12/21/2024 Refill [facility] Liver Transplant at [address] [place] [phone] Lydia Sanchez MD Encounter for therapeutic drug monitoring; S/P liver transplant ([facility]); Hypomagnesemia; Kidney transplant recipient; Hypertension, unspecified type; Gastroesophageal reflux disease, unspecified whether esophagitis present 12/18/2024 2:00 PM EDT Office Visit [facility] Psychiatry Transplant at [address] [place] [phone] Lizeth Warren PsyD Alcohol use disorder (Primary Dx); PTSD (post-traumatic stress disorder) 12/18/2024 Refill [facility] Liver Transplant at [address] [address] Maureen Pantoja, ЮЛИЯ Encounter for therapeutic drug monitoring; S/P liver transplant ([facility]); Hypomagnesemia; Kidney transplant recipient; Hypertension, unspecified type; Gastroesophageal reflux disease, unspecified whether esophagitis present 12/17/2024 Chart Note [facility] Liver Transplant at [address] [address] Marlene Ro MA 12/16 Labs entered [facility] 12/12/2024 Telephone [facility] Liver Transplant at [address] [address] Maureen Pantoja, RN Results 12/09/2024 11:45 AM EDT Office Visit [facility] Psychiatry Transplant at [address] [address] Rebekah Linares LIC[facility] Alcohol use disorder (Primary Dx) 12/09/2024 10:20 AM EDT Office Visit [facility] Liver Transplant at [address] [address] Harvey Domínguez III, MD Encounter for therapeutic drug monitoring (Primary Dx); S/P liver transplant ([facility]); Hypomagnesemia; Kidney transplant recipient; Hypertension, unspecified type; Gastroesophageal reflux disease, unspecified whether esophagitis present 12/09/2024 9:50 AM EDT Office Visit [facility] Liver Transplant at [address] [address] Leisa Juarez MD Kidney transplant recipient (Primary Dx); Immunosuppressive management encounter following liver transplant (CMS-HCC); Hypomagnesemia; S/P liver transplant ([facility]); Hypertension, unspecified type; Hyperparathyroidism ([facility]) 12/09/2024 Social Work [facility] Liver Transplant at [address] [address] Kaylin Willard MSW 12/09/2024 Orders Only [facility] Liver Transplant at [address] [address] Maureen Pantoja, ЮЛИЯ 12/09/2024 Orders Only [facility] Liver Transplant at [address] [address] Maureen Pantoja, ЮЛИЯ Kidney transplant recipient (Primary Dx); Liver transplant recipient ([facility]); Viral disease exposure; Immunosuppression ([facility]) 12/09/2024 Telephone [facility] Liver Transplant at [address] [address] Mitzy Rojas MA 12/09/2024 Chart Note [facility] Liver Transplant at [address] [address] Marlene Ro MA 12/04/2024 Telephone [facility] Liver Transplant at [address] [address] Maureen Pantoja, ЮЛИЯ Results 12/04/2024 Chart Note [facility] Liver Transplant at [address] [phone] Marlene Ro MA FK Pending-12/0412/04/2024 Telephone [facility] Liver Transplant at [address] [address] Kaylin Willard MSW 12/04/2024 Telephone [facility] Liver Transplant at [address] [address] Marlene Ro MA 12/03/2024 Chart Note [facility] Liver Transplant at [address] [place] [address] Marlene Ro MA 12/02/2024 Telephone [facility] Liver Transplant at [address] [address] Mitzy Rojas MA 12/01/2024 Telephone [facility] Liver Transplant at [address] [address] Gladis Chisholm MA 11/27/2024 Telephone [facility] Liver Transplant at [address] [address] Maureen Pantoja, RN Results 11/27/2024 Chart Note [facility] Liver Transplant at [address] [address] Marlene Ro MA FK Pending 11/27 Labs 11/26/2024 Telephone [facility] Liver Transplant at [address] [address] Maureen Pantoja, RN Results 11/25/2024 10:50 AM EDT Office Visit [facility] Liver Transplant at [address] [address] Leisa Juarez MD Kaur, Taranpreet NADIYA (acute kidney injury) (CMS-HCC) (Primary Dx); Kidney replaced by transplant; Metabolic acidosis; Hypervolemia associated with renal insufficiency 11/25/2024 10:20 AM EDT Office Visit [facility] Liver Transplant at [address] [place] [address] Lydia Sanchez MD Encounter for therapeutic drug monitoring (Primary Dx); S/P liver transplant ([facility]); Hypomagnesemia; Kidney transplant recipient; Hypertension, unspecified type; Gastroesophageal reflux disease, unspecified whether esophagitis present; Abdominal pain, unspecified abdominal location 11/25/2024 9:00 AM EDT Procedure visit [facility] at [facility] [address] [facility] [address] [place] [address] Julieta Rogers PA Retained ureteral stent of transplanted kidney ([facility]) (Primary Dx) 11/25/2024 Social Work [facility] Liver Transplant at [address] [place] [address] Kaylin Willard MSW 11/24/2024 Orders Only [facility] Liver Transplant at [address] [place] [address] Maureen Pantoja, RN 11/21/2024 Orders Only [facility] at [facility] [address] [facility] [address] [place] [address] Vasile Gordillo MA 11/21/2024 Telephone [facility] Liver Transplant at [address] [place] [address] Maureen Pantoja, RN Results 11/21/2024 Chart Note [facility] Liver Transplant at [address] [place] [address] Marlene Ro MA FK: 11/18 & 11/20 Pending 11/20/2024 Refill [facility] Liver Transplant at [address] [place] [address] Maureen Pantoja, ЮЛИЯ 11/20/2024 Refill [facility] Liver Transplant at [address] [address] Maureen Pantoja, ЮЛИЯ 11/20/2024 Orders Only [facility] Liver Transplant at [address] [address] Maureen Pantoja, RN S/P liver transplant ([facility]) (Primary Dx); Immunosuppression ([facility]); Viral disease exposure; Alcohol use 11/18/2024 Telephone [facility] Liver Transplant at [address] [address] Maureen Pantoja, RN Results 11/18/2024 Chart Note [facility] Liver Transplant at [address] [address] Marlene Ro MA 11/11/2024 10:30 AM EDT Office Visit [facility] Liver Transplant at [address] [address] Unknown, Attending Provider Jessica Colon Kidney replaced by transplant (Primary Dx); Hypervolemia associated with renal insufficiency 11/11/2024 10:00 AM EDT Office Visit [facility] Liver Transplant at [address] [address] Cosmo Pacheco MD Quillin, Ralph Cutler III, MD Encounter for therapeutic drug monitoring (Primary Dx); Abdominal pain, unspecified abdominal location 11/11/2024 9:30 AM EDT Office Visit [facility] Psychiatry Transplant at [address] [address] Lizeth Warren PsyD PTSD (post-traumatic stress disorder) (Primary Dx) 11/11/2024 8:50 AM EDT [facility] [address] [place] [phone] Harvey Domínguez III, MD Liver replaced by transplant ([facility]); Immunosuppressive management encounter following liver transplant ([facility]); Kidney transplant recipient 11/11/2024 Telephone [facility] Liver Transplant at [address] [place] [address] Maureen Pantoja, ЮЛИЯ Results 11/10/2024 Orders Only [facility] Liver Transplant at [address] [address] Maureen Pantoja, ЮЛИЯ Liver transplant recipient ([facility]) (Primary Dx); Kidney transplant recipient; Immunosuppressive management encounter following liver transplant ([facility]) 11/10/2024 Orders Only [facility] Liver Transplant at [address] [place] [address] Maureen Pantoja, ЮЛИЯ 11/09/2024 Telephone [facility] [address] [place] [address] Unknown, Attending Provider After Hours Call (Passing blood through stool states started this morning has had 3 bloody bowel movements kidney and liver txp done 2 weeks ago) 11/07/2024 Telephone [facility] Liver Transplant at [address] [place] [address] Marlene Ro MA 11/07/2024 Telephone [facility] Liver Transplant at [address] [place] [address] Maureen Pantoja, ЮЛИЯ Results 11/07/2024 Chart Note [facility] Liver Transplant at [address] [place] [address] Marlene Ro MA FK Pending 11/04/2024 10:10 AM EDT Office Visit [facility] Liver Transplant at [address] [place] [address] Leisa Juarez MD Kidney transplant recipient (Primary Dx); Diarrhea of presumed infectious origin; Hypomagnesemia; Hypervolemia, unspecified hypervolemia type; Liver transplant recipient (CMS-HCC); Other hypervolemia; Hyperparathyroidism (CMS-HCC); Nausea and vomiting, unspecified vomiting type 11/04/2024 8:40 AM EDT Office Visit [facility] Liver Transplant at [address] [place] [address] Cosmo Pacheco MD Liver transplant recipient (CMS-HCC) (Primary Dx); Alcoholic cirrhosis of liver with ascites ([facility]); Kidney transplant recipient; Acute kidney injury superimposed on CKD ([facility]); CKD (chronic kidney disease) stage 4, GFR 15-29 ml/min (CMS-HCC); Immunosuppressive management encounter following liver transplant (CMS-HCC); Abdominal pain, unspecified abdominal location 11/04/2024 Telephone [facility] Liver Transplant at [address] [place] [address] Maureen Pantoja, RN Results 11/04/2024 Results Follow-Up [facility] Liver Transplant at [address] [place] [address] Maureen Pantoja, RN Tacrolimus level, Hepatic Function Panel, Renal Function Panel w/EGFR, Additional followed-up results: 3 11/04/2024 Social Work [facility] Liver Transplant at [address] [place] [address] Kaylin Willard MSW 11/04/2024 Nutrition [facility] Kidney Transplant at [address] [place] [address] Ben Weiss, DMITRY 11/03/2024 Chart Note [facility] Liver Transplant at [address] [place] [phone] Hillary Fernandes, [facility] Liver Transplant Pharmacy Discharge Note 11/03/2024 Telephone [facility] Liver Transplant at [address] [place] [phone] Marisela Martinez MA 10/31/2024 Orders Only [facility] Liver Transplant at [address] [place] [phone] Harvey Domínguez III, MD Liver replaced by transplant ([facility]) (Primary Dx); Immunosuppressive management encounter following liver transplant ([facility]) 10/29/2024 Travel 10/29/2024 Education Chart Note [facility] Liver Transplant at [address] [place] [address] Crista Power RN 10/27/2024 2:34 AM EDT Anesthesia Event [facility] [address] [place] [phone] Rocky Manning MD Kopel, Lior, MD 10/27/2024 2:00 AM EDT - 10/27/2024 6:54 AM EDT Surgery [facility] [address] [address] Harvey Domínguez III, MD Donor Kidney Transplant , Back Bench Preparation Donor Kidney, Baseline Kidney transplant biopsy , Insertion of Indwelling Stent , Removal of Perihepatic packing 10/27/2024 Pharmacy Services [facility] [address] [place] [address] Opal Cox, Lissett 10/27/2024 Chart Note [facility] Kidney Transplant at [address] [place] [address] Karen Rosen, RN I have verified that the donor serologies entered in Epic match the donor 10/27/2024 Chart Note [facility] Liver Transplant at [address] [place] [address] Crista Power, RN I introduced myself as inpatient liver/kidney medical office coordinator, 10/27/2024 Orders Only [facility] [address] [place] [address] Abdulkadir Gaspar MD 10/26/2024 Chart Note [facility] Kidney Transplant at [address] [place] [address] Geri Vasquez RN 10/26/2024 Chart Note [facility] Liver Transplant at [address] [place] [address] Geri Vasquez RN 10/25/2024 10:54 PM EDT Anesthesia Event [facility] [address] [place] [address] Eber Quinones MD Edwards, Anna, MD 10/25/2024 10:30 PM EDT - 10/26/2024 6:12 AM EDT Surgery [place] [address] [place] [address] Harvey Domínguez III, MD LIVER TRANSPLANT 10/25/2024 8:46 PM EDT - 11/02/2024 6:23 PM EDT Hospital Encounter [facility] [address] [place] [address] Harvey Domínguez III, MD Haugen, Christine, MD Acute kidney injury superimposed on CKD (CMS-HCC) (Primary Dx); Prophylactic antibiotic; Prolonged QT interval; Immunosuppression (CMS-HCC); Abdominal pain, unspecified abdominal location Discharge Disposition: Home or Self Care WITHOUT Home Care Services 10/25/2024 Travel 10/25/2024 Telephone [facility] Liver Transplant at [address] [place] [phone] Krissy Crowell, RN DDLT patient instructions 10/25/2024 Telephone [facility] Liver Transplant at [address] [place] [phone] Krissy Crowell, ЮЛИЯ 10/24/2024 [facility]phone [facility] [facility] at [address] [place] [phone] Joann Davies, RAFFI Appointment 10/22/2024 Telephone [facility] Liver Transplant at [address] [place] [phone] Mary Butler RN 10/22/2024 Chart Note [facility] Kidney Transplant at [address] [place] [phone] Gladis Rainey RN Received most recent eGFR from today with result of 21. Pt meets CKD 10/22/2024 Chart Note [facility] Liver Transplant at [address] [place] [phone] Faraz Carballo, ЮЛИЯ 2nd ABO verified for [facility] listing at the request of JOSE G Butler. 10/22/2024 Telephone [facility] Psychiatry Transplant at [address] [place] [phone] Lizeth Warren PsyD 10/22/2024 Chart Note [facility] [address] [place] [address] Aaron Gonzalez MD Candidacy for a simultaneous liver-kidney transplant 10/22/2024 Status Update [facility] Kidney Transplant at [address] [place] [address] Aaron Gonzalez MD 10/22/2024 Chart Note [facility] Liver Transplant at [facility] [address] [place] [address] Mary Butler, RN UNOS VERIFICATION CHECK FORM 10/22/2024 Orders Only [facility] Pancreas Transplant at [facility] [address] [place] [address] Abdulkadir Gaspar MD 10/22/2024 Chart Note [facility] Transplant at [facility] [address] [facility] [address] [place] [address] Mary Butler, ЮЛИЯ 10/21/2024 Telephone [facility] Gastroenterology at [facility] [address] [facility] [address] [place] [address] Gerri Peterson MD Medication Management (Requesting RX for New Medication ) 10/21/2024 Refill [facility] Gastroenterology at [facility] [address] [facility] [address] [place] [address] Gerri Peterson MD 10/20/2024 9:10 AM EDT - 10/20/2024 11:59 PM EDT Hospital Encounter [facility] Radiology [address] [place] [address] System, Provider Not In Discharge Disposition: Home or Self Care WITHOUT Home Care Services 10/20/2024 9:10 AM EDT - 10/20/2024 11:59 PM EDT Hospital Encounter [facility] Radiology [address] [place] [address] System, Provider Not In Discharge Disposition: Home or Self Care WITHOUT Home Care Services 10/20/2024 9:10 AM EDT - 10/20/2024 11:59 PM EDT Hospital Encounter [facility] Radiology [address] [place] [address] System, Provider Not In Discharge Disposition: Home or Self Care WITHOUT Home Care Services 10/20/2024 9:10 AM EDT - 10/20/2024 11:59 PM EDT Hospital Encounter [facility] Radiology [address] [place] [address] System, Provider Not In Discharge Disposition: Home or Self Care WITHOUT Home Care Services 10/20/2024 9:10 AM EDT - 10/20/2024 11:59 PM EDT Hospital Encounter [facility] Radiology [address] [place] [address] System, Provider Not In Discharge Disposition: Home or Self Care WITHOUT Home Care Services 10/20/2024 9:10 AM EDT - 10/20/2024 11:59 PM EDT Hospital Encounter [facility] Radiology [address] [place] [address] System, Provider Not In Discharge Disposition: Home or Self Care WITHOUT Home Care Services 10/20/2024 9:10 AM EDT - 10/20/2024 11:59 PM EDT Hospital Encounter [facility] Radiology [address] [place] [address] System, Provider Not In Discharge Disposition: Home or Self Care WITHOUT Home Care Services 10/20/2024 Orders Only [facility] Pancreas Transplant at [facility] [address] [place] [address] Abdulkadir Gaspar MD 10/20/2024 Telephone [facility] Gastroenterology at [facility] [address] [facility] [address] [place] [phone] Gerri Peterson MD Prescription Issue (RX Clarification Request ) 10/20/2024 Refill [facility] Gastroenterology at [facility] [address] [facility] [address] [place] [phone] Gerri Peterson MD 10/20/2024 Telephone [facility] Liver Transplant at [facility] [address] [place] [address] [address] [place] [address] Mary Butler, RN 10/17/2024 Chart Note [facility] Kidney Transplant at [address] [address] Anny Cote, RN Copy of HLA report scanned into the media tab. Will follow up on GFR 10/17/2024 Chart Note [facility] Kidney Transplant at [address] [address] Anny Cote, RN 10/17/2024 Pharmacy Services [facility] [address] [place] [phone] Ridge Menjivar jaymie 10/14/2024 8:42 AM EDT - 10/14/2024 9:27 AM EDT Surgery [facility] Cardiac Vulcanizing Machine Operator [address] [place] [phone] Irving Matta MD Left Heart Cath 10/14/2024 Chart Note [facility] Kidney Transplant at [address] [address] Dean Robles [facility] [address] 10/10/2024 12:01 PM EDT Anesthesia Event [facility] ENDOSCOPY [address] [place] [address] Cady Bhat MD Nguyen, Quinn, MD 10/10/2024 10:36 AM EDT - 10/10/2024 11:06 AM EDT Surgery [facility] ENDOSCOPY [address] [place] [address] Lino Soto MD EGD 10/09/2024 Social Work [facility] Liver Transplant at [address] [address] Kaylin Willard MSW 10/09/2024 Chart Note [facility] Kidney Transplant at [address] [place] [address] Dean Robles [facility] [address] call from Elle buckley [facility] fx [phone] 10/09/2024 Chart Note [facility] Kidney Transplant at [address] [place] [address] Dean Robles [facility] [address] 10/05/2024 11:12 PM EDT - 10/17/2024 10:29 AM EDT Hospital Encounter [facility] [address] [place] [address] Gómez Blanchard MD Wood, Sharice N, MD [...] Recorded In the past 12 months has [employer], gas, oil, or water [employer] threatened to shut off services in [...] Pulse 93 01/06/2025 8:26 AM EDT Temperature 36.5 C (97.7 F) 11/25/2024 10:39 AM EDT Respiratory Rate 16 01/06/2025 8:26 AM EDT Oxygen Saturation 100% 01/06/2025 8:26 AM EDT Inhaled Oxygen Concentration 100% 01/06/2025 8 :26 AM EDT Weight 101.2 kg (223 lb) 01/06/2025 8:26 AM EDT Height 193 cm (6' 4 ) 01/06/2025 8:26 AM EDT Body Mass Index 27.14 01/06/2025 8:26 AM EDT Plan of Treatment Health Maintenance [...] 12/10/2024, 09/29/2024, Additional history exists Renal Function/GFR 01/05/2026 01/05/2025, 0 12/31/2024, 12/23/2024, Additional history exists Immunization: DTaP/Tdap/Td ( 3 - Td or Tdap) 06/03/2028 06/03/2018, 09/13/2010 Hepatitis C Screening (MyChart) Completed 10/25/2024, 10/07/2024, 10/06/2024, Additional history exists HIV Screening Completed 11/25/2024, 10/12, 10/07/2024 Procedures Procedure Name Priority Date/Time Associated Diagnosis Comments TACROLIMUS LEVEL Routine 01/05/2025 9:27 AM EDT BK VIRUS QUANTITATIVE BY PCR, BLOOD Routine 01/05/2025 9:27 AM EDT MAGNESIUM Routine 01/05/2025 9:27 AM EDT RENAL FUNCTION PANEL W/O EGFR Routine 01/05/2025 9:27 AM EDT CREATININE, URINE, RANDOM Routine 2024 9:27 AM EDT URINALYSIS W/RFL TO MICROSCOPIC Routine 01/05/2025 9:27 AM EDT CBC AND DIFFERENTIAL Routine 01/05/2025 9:27 AM EDT URINE PROTEIN, TOTAL, RANDOM (W/O CREATININE) Routine 01/05/2025 9:27 AM EDT HEPATIC FUNCTION PANEL Routine 9:27 AM EDT URINE CULTURE Routine 01/05/2025 9:27 AM EDT TACROLIMUS LEVEL Routine 12/31/2024 9:41 [...] 8:01 AM EDT HEPATIC FUNCTION PANEL Routine 5 8:01 AM EDT URINE CULTURE Routine 12/02/2024 8:01 AM EDT TACROLIMUS LEVEL Routine 11/27/2024 7:50 AM EDT RENAL FUNCTION PANEL W/O EGFR Routine 11/27/2024 7:50 AM EDT PROTIME-INR Routine 11/27/2024 7:50 AM EDT CBC AND DIFFERENTIAL Routine 11/27/2024 7:50 AM EDT HEPATIC FUNCTION PANEL Routine 7:50 AM EDT PHOSPHATIDYLETHANOL CONFIRMATION, B Routine 11/25/2024 8:42 AM EDT S/P liver transplant (CMS-HCC) Immunosuppression ([facility]-HCC) Alcohol use HIV-1 RNA, QUANTITATIVE, PCR Routine 11/25/2024 8:42 AM EDT S/P liver transplant (CMS-HCC) Immunosuppression (CMS-HCC) Viral disease exposure HEPATITIS C RNA, QUANTITATIVE PCR Routine 11/25/2024 8:42 AM EDT S/P liver transplant (CMS-HCC) Immunosuppression ([facility]-HCC) Viral disease exposure HEPATITIS B VIRUS [...] Routine 10/31/2024 10:19 AM EDT US DUPLEX [id number] COMPLETE Routine 10/31/2024 10:19 AM EDT ECG [...] STAT 10/28/2024 4:23 PM EDT US DUPLEX [id number] COMPLETE STAT 10/28/2024 4:23 PM EDT TRANSFUSE [...] STAT 10/27/2024 9:51 AM EDT US DUPLEX [id number] COMPLETE STAT 10/27/2024 9:51 AM EDT US [...] Acute kidney injury superimposed on CKD (CMS-HCC) IA RENAL ALTRNSPLJ IMPLTJ GRF W/DRUG AND ALCOHOL COUNSELLOR NEPHRECTOMY 10/27/2024 2:32 AM EDT Acute kidney [...] EDT CBC STAT 10/09/2024 4:59 AM EDT TSH Routine 10/07/2024 6:37 PM EDT from Last 3 Months or Most Recently Relevant to Health Maintenance Results * Urine Protein, Tot, Random (w/o Creat) (01/05/2025 9:27 AM EDT) Only the most recent of4 resultswithin the time period is included. Total Protein, Ur 21.0 Urine Narrative Resulting Agency Comment [facility] Result [facility] URINE ORDERABLES Final Re sult * BK Virus Quantitative by PCR, Blood (01/05/2025 9:27 AM EDT) Only the most recent of2 resultswithin the time period is included. BK Virus Quant PCR PL Negative Plasma Result [facility] LAB BLOOD ORDERABLES Denisse l Result * Hepatic Function Panel (01/05/2025 9:27 AM EDT) Only the most recent of38 resultswithin the time period is included. Bilirubin, Direct 0.2 Bilirubin, Indirect 0.8 Alkaline Phosphatase 47 ALT 16 AST 28 Total Bilirubin 1.0 Total Protein 7.0 Plasma Narrative Resulting Agency Comment [facility] Result [facility] LAB BLOOD ORDERABLES Denisse l Result * Tacrolimus level (01/05/2025 9:27 AM EDT) Only the most recent of20 resultswithin the time period is included. Tacrolimus Lvl 12.6 6 - 15 ng/mL Whole Blood Result [facility] LAB BLOOD ORDERABLES Denisse l Result * Creatinine, urine, random (01/05/2025 9:27 AM EDT) Only the most recent of4 resultswithin the time period is included. Creatinine, Urine 80 Urine Narrative Resulting Agency Comment [facility] Result [facility] URINE ORDERABLES Final Re sult * Urinalysis w/Rfl to Microscopic (01/05/2025 9:27 AM EDT) Only the most recent of8 resultswithin the time period is included. Pathologist [facility] Glucose, UA Negative Negative Ketones, UA Negative Negative Blood, UA Negative Negative Bilirubin, UA Negative Negative Urobilinogen, UA Normal Normal Protein, UA Negative Negative Nitrite, UA Negative Negative pH, UA 6.0 4.5 - 8.0 Specific [place], UA 1.015 1.005 - 1.030 Clarity, UA Clear Clear Color, UA Yellow Light Yellow, Yellow Urine Narrative Resulting Agency Comment [facility] Provider URINE ORDERABLES Final Re sult * (ABNORMAL) CBC and differential (01/05/2025 9:27 AM EDT) Only the most recent of13 resultswithin the time period is included. Pathologist [facility] Hemoglobin 11.9(A) 13.5 - 17.5 g/dL Hematocrit [...] 2.3 10^3/mL Blood Narrative Resulting Agency Comment [facility] Provider LAB BLOOD ORDERABLES Denisse l Result * Urine culture (01/05/2025 9:27 AM EDT) Only the most recent of4 resultswithin the time period is included. Pathologist [facility] Urine Culture, Comprehensive no growth URINE SPECIMEN / Unknown us Historical Provider MICROBIOLOGY - GENERAL OR DERABLES Final Result * (ABNORMAL) Magnesium (01/05/2025 9:27 AM EDT) Only the most recent of31 resultswithin the time period is included. Pathologist [facility] Magnesium 1.0(A) 1.6 - 2.4 mg/dL Plasma Narrative Resulting Agency Comment [facility] Historical Provider LAB BLOOD ORDERABLES Denisse l Result * (ABNORMAL) Renal Function Panel w/o EGFR (01/05/2025 9:27 AM EDT) Only the most recent of14 resultswithin the time period is included. Pathologist [facility] Glucose 98 BUN 19 CO2 29(A) 13 - 22 mmol/L Creatinine 1.10 Potassium 4.0 Sodium 140 Chloride 101 Phosphorus 5.4(A) 2.5 - 4.9 mg/dL Calcium 9.7 EGFR 89 mg/dL Albumin 4.8 3.5 - 5.0 g/dL Blood Narrative Resulting Agency Comment [facility] Provider LAB BLOOD ORDERABLES Denisse l Result * Protime-INR (12/23/2024 9:53 AM EDT) Only the most recent of23 resultswithin the time period is included. Pathologist [facility] INR 0.94 0.9 - 1.1 Protime 10.5 Plasma Harvey Domínguez III, MD LAB BLOOD ORDERABLE S Final Result * Phosphatidylethanol Confirmation, B (11/25/2024 8:42 AM EDT) PETH 16:0/18.1 (POPETH) 14 Cutoff: 10 ng/mL 11/28/2024 8:24 AM EDT [facility] Comment: Phosphatidylethanol (PEth) homologues result [...] Cutoff: 10 ng/mL 11/28/2024 8:24 AM EDT [facility] Comment: PEth 16:0/18:2 (PLPEth) Reference ranges are not well established PEth Interpretation Positive. 11/28 8:24 AM EDT [facility] Comment: ADDITIONAL INFORMATION This report [...] Drug Administration. Test Performed by: [facility] [place] [address] Teacher Asst: Kathy Ortiz Ph.D.; CLIA# [id number] Whole Blood 11/25/2024 8:42 AM EDT 11/28/2024 8:24 AM EDT Narrative [facility] - 11/28/2024 8:24 AM EDT One time lab order to be collected with next set of standing liver transplant labs. Please fax all results to [phone]. Call critical results to [phone]. us Harvey Domínguez III, MD LAB BLOOD ORDERABLE S Final Result [facility] [address] [place] [address], [facility] * Hepatitis B Virus (HBV), PCR, Quant (11/25/2024 8:42 AM EDT) Hep B Viral DNA IU/ML Not Detected IU/mL 11/28/2024 10:09 AM EDT [facility] Comment:Test methodology for HBV DNA quantification is an FDA-approved nucleic acid amplification assay. The lower limit of quantitation (LLOQ) is 10 IU/mL. The linear range of the assay is 10-1,000,000,000 IU/mL. The limit of detection (LoD) for plasma is 2.7 IU/mL. The reference range is Not Detected. log 10 HBV as IU/mL See Note log 10 IU/mL 11/28/2024 10:09 AM EDT [facility] Comment:HBV DNA not detected . Plasma 11/25/2024 8:42 AM EDT 11/25/2024 10:59 AM EDT Narrative [facility] - 11/28/2024 10:09 AM EDT One time lab order to be collected with next set of standing liver transplant labs. UNOS requirement. Please fax all results to [phone]. Call critical results to [phone]. us Harvey Domínguez III, MD LAB BLOOD ORDERABLE S Final Result [facility] [address] [id number], [facility] * HIV-1 RNA, Quantitative, PCR (11/25/2024 8:42 AM EDT) HIV 1 Copies Not Detected copies/mL 11/26/2024 10:57 AM EDT [facility] Comment:Test methodology for HIV-1 RNA quantification is an FDA-approved nucleic acid amplification assay. The Lower Limit of Quantitation (LLoQ) is 20 copies/mL. The linear range is 20- to 10,000,000 copies/mL. The Limit of Detection (LoD) is 13.2 copies/mL. The reference range is Not Detected. HIV [id number] See Note [id number] /mL 11/26/2024 10:57 AM EDT [facility] Comment:HIV-1 RNA not detect ed. Plasma 11/25/2024 8:42 AM EDT 11/25/2024 10:59 AM EDT [facility] - 11/26/2024 10:57 AM EDT One time lab order to be collected with next set of standing liver transplant labs. UNOS requirement. Please fax all results to [phone]. Call critical results to [phone]. us Harvey Domínguez III, MD LAB BLOOD ORDERABLE S Final Result Performing Organization Address City/[facility]/ZIP Co de Phone Number [facility] [address] * Hepatitis C RNA, Quantitative PCR (11/25/2024 8:42 AM EDT) [employer] Units Not Detected IU/mL 11/27/2024 11:35 AM EDT [facility] Comment:Test methodology for HCV RNA quantification is an FDA-approved nucleic acid amplification assay. The Lower Limit of Quantitation (LLOQ) is 15 IU/mL. The linear range of the assay is 15-100,000,000 IU/mL. The Limit of Detection (LoD) is 12.0 IU/mL for EDTA plasma. The reference range is Not Detected. IU log10 See Note log 10 IU/mL 11/27/2024 11:35 AM EDT [facility] Comment:HCV RNA not detected . Plasma 11/25/2024 8:42 AM EDT 11/25/2024 10:59 AM EDT [facility] - 11/27/2024 11:35 AM EDT One time lab order to be collected with next set of standing liver transplant labs. UNOS requirement. Please fax all results to [phone]. Call critical results to [phone]. us Harvey Domínguez III, MD LAB BLOOD ORDERABLE S Final Result Performing Organization Address City/[facility]/ZIP Co de Phone Number [facility] [address] * Differential (11/25/2024 8:42 AM EDT) Only the most recent of5 resultswithin the time period is included. Neutrophils Relative 73.2 40.0 - 80.0 % 11/25/2024 10:25 AM EDT [facility] Lymphocytes Relative 19.2 15.0 - 45.0 % 11/25/2024 10:25 AM EDT [facility] Monocytes Relative 6.3 0.0 - 12.0 % 11/25/2024 10:25 AM EDT [facility] Eosinophils Relative 0.4 0.0 - 8.0 % 11/25/2024 10:25 AM EDT [facility] Basophils Relative 0.9 0.0 - 1.0 % 11/25/2024 10:25 AM EDT [facility] nRBC 0 0 - 0 /100 WBC 11/25/2024 10:25 AM EDT [facility] Neutrophils Absolute 5,929 1,520 - 8,640 /uL 11/25/2024 10:25 AM EDT [facility] Lymphocytes Absolute 1,555 570 - 4,860 /uL 11/25/2024 10:25 AM EDT [facility] Monocytes Absolute 510 0 - 1,296 /uL 11/25/2024 10:25 AM EDT [facility] Eosinophils Absolute 32 0 - 864 /uL 11/25/2024 10:25 AM EDT [facility] Basophils Absolute 73 0 - 108 /uL 11/25/2024 10:25 AM EDT [facility] Whole Blood 11/25/2024 8:42 AM EDT 11/25/2024 9:44 AM EDT Narrative [facility] - 11/25/2024 10:25 AM EDT Standing orders to be drawn: Every Sunday and before 9am and prior to patient taking morning medications. Liver Transplant Fax results to [phone] Call Critical results to [phone] us Harvey Domínguez III, MD LAB BLOOD ORDERABLE S Final Result [facility] [address] [facility] [place] [address], [facility] * (ABNORMAL) CBC (11/25/2024 8:42 AM EDT) Only the most recent of29 resultswithin the time period is included. WBC 8.1 3.8 - 10.8 10E3/uL 11/25/2024 10:25 AM EDT [facility] RBC 3.71(L) 4.20 - 5.80 10E6/uL 11/25/2024 10:25 AM EDT [facility] Hemoglobin 11.7(L) 13.2 - 17.1 g/dL 11/25/2024 10:25 AM EDT [facility] Hematocrit 33.8(L) 38.5 - 50.0 % 11/25/2024 10:25 AM EDT [facility] MCV 91.1 80.0 - 100.0 fL 11/25/2024 10:25 AM EDT [facility] MCH 31.5 27.0 - 33.0 pg 11/25/2024 10:25 AM EDT [facility] MCHC 34.6 32.0 - 36.0 g/dL 11/25/2024 10:25 AM EDT [facility] RDW 20.0(H) 11.0 - 15.0 % 11/25/2024 10:25 AM EDT [facility] Platelets 193 140 - 400 10E3/uL 11/25/2024 10:25 AM EDT [facility] Comment:Slide Reviewed for P LT Clumps. None Seen. MPV 6.9(L) 7.5 - 11.5 fL 11/25/2024 10:25 AM EDT [facility] Whole Blood 11/25/2024 8:42 AM EDT 11/25/2024 9:44 AM EDT us Gerri Peterson MD LAB BLOOD ORDERABLES Final Resu lt [facility] [address] [id number], [facility] * (ABNORMAL) Comprehensive metabolic panel (11/25/2024 8:42 AM EDT) Sodium 141 133 - 146 mmol/L 11/25/2024 10:20 AM EDT [facility] Potassium 4.3 3.5 - 5.3 mmol/L 11/25/2024 10:20 AM [facility] Chloride 106 98 - 110 mmol/L 11/25/2024 10:20 AM [facility] CO2 23 21 - 33 mmol/L 11/25/2024 10:20 AM [facility] Anion Gap 12 3 - 16 mmol/L 11/25/2024 10:20 AM [facility] BUN 43(H) 7 - 25 mg/dL 11/25/2024 10:20 AM [facility] Creatinine 1.59(H) 0.60 - 1.30 mg/dL 11/25/2024 10:20 AM [facility] Glucose 93 70 - 100 mg/dL 11/25/2024 10:20 AM [facility] Calcium 10.0 8.6 - 10.3 mg/dL 11/25/2024 10:20 AM [facility] Total Bilirubin 0.7 0.0 - 1.5 mg/dL 11/25/2024 10:20 AM [facility] AST 9(L) 13 - 39 U/L 11/25/2024 10:20 AM [facility] ALT 22 7 - 52 U/L 11/25/2024 10:20 AM [facility] Alkaline Phosphatase 198(H) 36 - 125 U/L 11/25/2024 10:20 AM [facility] Total Protein 7.0 6.4 - 8.9 g/dL 11/25/2024 10:20 AM [facility] Albumin 4.5 3.5 - 5.7 g/dL 11/25/2024 10:20 AM [facility] Osmolality, Calculated 303 278 - 305 mOsm/kg 11/25/2024 10:20 AM [facility] EGFR 56 11/25/2024 10:20 AM [facility] Comment:As of 2021, the [...] Resu lt Performing Organization Address City/[facility] Co de Phone Number [facility] [address] * (ABNORMAL) Post Kidney Transplant Urine Culture (11/11/2024 9:13 AM EDT) Only the most recent of3 resultswithin the time period is included. Culture Result Enterococcus faecium(A) [facility] Comment: <1,000 cfu/mL Identified by MALDI-TOF MS No Further Workup Midstream Urine URINE SPECIMEN / Unknown 11/11/2024 9:13 AM EDT 11/11/2024 10:17 AM EDT Caron Santos CNP MICROBIOLOGY - GENERAL OR DERABLES Final Result Performing Organization Address [facility] Co de Phone Number [facility] [address] [facility] * (ABNORMAL) Renal Function Panel w/EGFR (11/11/2024 9:13 AM EDT) Only the most recent of29 resultswithin the time period is included. Sodium 141 133 - 146 mmol/L 11/11/2024 10:51 AM EDT [facility] Potassium 4.6 3.5 - 5.3 mmol/L 11/11/2024 10:51 AM EDT [facility] Chloride 108 98 - 110 mmol/L 11/11/2024 10:51 AM EDT [facility] CO2 24 21 - 33 mmol/L 11/11/2024 10:51 AM EDT [facility] Anion Gap 9 3 - 16 mmol/L 11/11/2024 10:51 AM EDT [facility] BUN 27(H) 7 - 25 mg/dL 11/11/2024 10:51 AM EDT [facility] Creatinine 1.14 0.60 - 1.30 mg/dL 11/11/2024 10:51 AM EDT [facility] Glucose 97 70 - 100 mg/dL 11/11/2024 10:51 AM EDT [facility] Calcium 8.6 8.6 - 10.3 mg/dL 11/11/2024 10:51 AM EDT [facility] Phosphorus 4.4 2.1 - 4.7 mg/dL 11/11/2024 10:51 AM EDT [facility] Albumin 3.8 3.5 - 5.7 g/dL 11/11/2024 10:51 AM EDT [facility] Osmolality, Calculated 297 278 - 305 mOsm/kg 11/11/2024 10:51 AM EDT [facility] EGFR 83 11/11/2024 10:51 AM EDT [facility] Comment:As of [...] AM EDT 11/11/2024 10:19 AM EDT Narrative [facility] - 11/11/2024 10:51 AM EDT Standing orders to be drawn: Every Sunday and before 9am and prior to patient taking morning medications. Liver Transplant Fax results to [phone] Call Critical results to [phone] DO NOT REPLACE RENAL PANEL or HEPATIC FUNCTION PANEL w/ CMP, BMP or HEPATIC PROFILE us Harvey Domínguez III, MD LAB BLOOD ORDERABLE S Final Result Performing Organization Address [facility] Co de Phone Number [facility] [address] [facility]. [address] * Protein / creatinine ratio, urine (11/11/2024 9:13 AM EDT) Only the most recent of2 resultswithin the time period is included. Pathologist [facility] Creatinine, Urine 71.40 mg/dL 11/11/2024 10:38 AM EDT [facility] Comment:Reference range not established for this test. Total Protein, Ur 28 mg/dL 11/11/2024 10:38 AM EDT [facility] Comment:Reference range not established for this test. Prot/Creat Ratio, Ur 0.39 ratio 11/11/2024 10:38 AM EDT [facility] Urine 11/11/2024 9:13 AM EDT 11/11/2024 10:12 AM EDT us Caron Santos CNP URINE ORDERABLES Final Re sult Performing Organization Address [facility] Co de Phone Number [facility] [address] [facility]. [address] * EKG - scan (11/03/2024 9:07 [...] TEST ORDERABLES Final Result [facility] [address] [place] [address], [facility] * X-ray Portable Abdomen AP [...] Adrenal gland: No focal nodule seen. Kidneys: [place] kidneys noted with nonobstructing calcifications on the right. Findings of postsurgical changes in the left [place] kidney. Mild right hydronephrosis without an obstructive [...] Adrenal gland: No focal nodule seen. Kidneys: [place] kidneys noted with nonobstructing calcifications on theright. Findings of postsurgical changes in the left [place] kidney. Mildright hydronephrosis without an obstructive course [...] QT: 400 ms QTc: 456 ms P Patterson: 49 degrees R Patterson: 3 degrees T Patterson: 14 degrees Diagnosis Line: NORMAL SINUS RHYTHM ^ NORMAL ECG ^ ^ Confirmed by MD REID JAMES ([id number]) on 11/02/2024 6:56:52 AM us Priti Alex ANALYSIS OR RESEARCH SAFETY INSPECTOR ECG ORDERABLES Final Result MUSE * US Duplex Gjv-Gzd-Kwmrrew Comp (10/31/2024 10:19 AM EDT) Only the [...] EXAM: US ABDOMEN LIMITED EXAM: US DUPLEX [id number] COMPLETE INDICATION: Post-op liver transplant COMPARISON: None [...] visualized secondary to poor acoustic windows. The [place] right kidney measures 11.6 cm in length. [...] EXAM: US ABDOMEN LIMITED EXAM: US DUPLEX [id number] COMPLETE INDICATION: Post-op liver transplant COMPARISON: None [...] well visualized secondary to poor acousticwindows. The [place] right kidney measures 11.6 cm in length. [...] 10/31/2024 10:35 AM EDT us Beata Horner ANALYSIS OR RESEARCH SAFETY INSPECTOR IMG US ORDERABLES Final R esult [...] EXAM: US ABDOMEN LIMITED EXAM: US DUPLEX [id number] COMPLETE INDICATION: Post-op liver transplant COMPARISON: None [...] visualized secondary to poor acoustic windows. The [place] right kidney measures 11.6 cm in length. [...] EXAM: US ABDOMEN LIMITED EXAM: US DUPLEX [id number] COMPLETE INDICATION: Post-op liver transplant COMPARISON: None [...] well visualized secondary to poor acousticwindows. The [place] right kidney measures 11.6 cm in length. [...] 10/31/2024 10:29 AM EDT us Beata Horner [facility] US ORDERABLES Final R esult * Prepare RBC, leukoreduced, 1 Units (10/29/2024 6:16 AM EDT) Only the most recent of7 resultswithin the time period is included. [facility] [address] Product Code G0156T06 HCLL Unit Number [id number] HCLL Dispense Status Presumed Transfused_PT HCLL Blood Expiration Date [id number] HCLL Coding System [id number] HCLL Blood Bank Product us Shay Guzmán MD [...] Final Result Performing Organization Address [facility]/ZIP Co de Phone Number [facility] [address] [place] [address], [facility] * Transfuse RBC Transfusion Rate: Per dept routine (10/28/2024 5:23 PM EDT) Only the most recent of16 resultswithin the time period is included. Shay Guzmán MD NURSING TREATMENT OR DERABLES - BLOOD ADMIN Final Result Performing Organization Address City/[facility]/ZIP Co de Phone Number EXTERNAL * (ABNORMAL) Lactic Acid, STAT (10/28/2024 11:09 AM EDT) Only the most recent of8 resultswithin the time period is included. Lactate 0.3(L) 0.5 - 2.2 mmol/L 10/28/2024 11:37 AM EDT [facility] Plasma 10/28/2024 11:0 9 AM EDT 10/28/2024 11:15 AM EDT Carlos Marks MD LAB BLOOD ORDERABLES Final Result Performing Organization Address [facility]/ZIP Co de Phone Number [facility] [address] [place] [address], [facility] * Prepare Platelets, leukoreduced (10/28/2024 6:15 AM EDT) Only the most recent of5 resultswithin the time period is included. Product Code E2812G42 HCLL Unit Number [id number] HCLL Dispense Status Presumed Transfused_PT HCLL Blood Expiration Date HCLL Coding System [id number] HCLL Product Code S1185S31 HCLL Unit Number [id number] HCLL Dispense Status Presumed Transfused_PT HCLL Blood Expiration Date [id number] HCLL Coding System [id number] HCLL us Attending Provider Unknown BLOOD BANK PRODUCT OR DERABLES Final Result HCLL * Prepare Fresh Frozen Plasma (10/28/2024 6:15 AM EDT) Only the most recent of5 resultswithin the time period is included. Product Code H5867A40 HCLL Unit Number [id number] HCLL Dispense Status Released from Crossmatch_RE HCLL Blood Expiration Date HCLL Coding System [id number] HCLL Product Code I3508O25 HCLL Unit Number [id number] HCLL Dispense Status Presumed Transfused_PT HCLL Blood Expiration Date HCLL Coding System [id number] HCLL Product Code D2681L56 HCLL Unit Number [id number] HCLL Dispense Status Released from Crossmatch_RE HCLL Blood Expiration Date HCLL Coding System [id number] HCLL Product Code S7553E91 HCLL Unit Number [id number] HCLL Dispense Status Presumed Transfused_PT HCLL Blood Expiration Date HCLL Coding System OTWK949 HCLL Product Code J9594T42 HCLL Unit Number [id number] HCLL Dispense Status Released from Crossmatch_RE HCLL Blood Expiration Date HCLL Coding System CHHE163 HCLL us Attending Provider Unknown BLOOD BANK PRODUCT OR DERABLES Final Result HCLL * Prepare Cryoprecipitate, 1 Units (10/28/2024 6:15 AM EDT) Only the most recent of4 resultswithin the time period is included. Product Code G6719Y43 HCLL Unit Number [id number] HCLL Dispense Status Presumed Transfused_PT HCLL Blood Expiration Date HCLL Coding System [id number] HCLL Product Code Y8949I98 HCLL Unit Number [id number] HCLL Dispense Status Presumed Transfused_PT HCLL Blood Expiration Date HCLL Coding System [id number] HCLL Blood Bank Product John Pina MD BLOOD BANK PRODUCT ORDERABLES F inal Result Performing Organization Address [facility] Co de Phone Number HCLL [...] ORDERABLES Final R esult [facility] [address] * CARISA Rhythm Strip - Scan (10/27/2024 9:25 AM EDT) Only the most recent of6 resultswithin the time period is included. us Scanning Uchhim SCAN DOCS - NO RESULTS Final Res ult * X-ray Portable Chest (10/27/2024 8:58 AM EDT) Only the most recent of3 [...] Final Result Performing Organization Address [facility] Co de Phone Number [facility] [address] [facility]. [address] * Hemoglobin A1c (10/27/2024 8:00 AM [...] Final Result Performing Organization Address [facility] Co de Phone Number [facility] [address] [facility]. [address] * X-ray Abdomen AP view (10/27/2024 [...] 100 mm Hg 10/27/2024 6:17 AM T [facility] HCO3 (ABGP) 21(L) 22 - 26 mmol/L 10/27/2024 6:17 AM [facility] CO2 Content (ABGP) 22(L) 23 - 27 mmol/L 10/27/2024 6:17 AM [facility] Base Excess (ABGP) -5.7(L) -2.0 - 3.0 mmol/L 10/27/2024 6:17 AM [facility] Sodium (ABGP) 138 136 - 146 mEq/L 10/27/2024 6:17 AM [facility] Potassium (ABGP) 3.3(L) 3.5 - 5.0 mEq/L 10/27/2024 6:17 AM [facility] Comment:In the event of in-v itro hemolysis, potassium results may be falsely elevated. Always interpret lab results in conjunction with clinical findings. If hemolysis is suspected, a serum sample may be collected for repeat assessment of potassium. Calcium, Free (ABGP) 5.28 4.50 - 5.30 mg/dL 10/27/2024 6:17 AM [facility] Glucose (ABGP) 112(H) 70 - 100 mg/dL 10/27/2024 6:17 AM [facility] Comment:There is interferenc e with whole blood glucose results on this method when Hematocrit is <25% or >60%. HCT (ABGP) 20.0(L) 40.0 - 52.0 % 10/27/2024 6:17 AM [facility] HGB (ABGP) 6.5(L) 14.0 - 18.0 g/dL 10/27/2024 6:17 AM EDT [facility] %HBO2 (ABGP) 96.8 95.0 - 98.0 % 10/27/2024 6:17 AM EDT [facility] Carboxyhgb (ABGP) 2.1 % 025 6:17 AM EDT [facility] Comment: CARBOXYHEMOGLOBIN (CO) REFERENCE RANGES: Non-Smokers: <2 % Smokers: <8 % TOXIC: >20 % Methemoglobin (ABGP) 1.0 0.0 - 1.5 % 10/27/2024 6:17 AM EDT [facility] Reduced Hemoglobin (ABGP) 0.2 0.0 - 5.0 % 10/27/2024 6:17 AM EDT [facility] Lactic Acid (ABGP) 0.4(L) 0.5 - 1.6 mmol/L 10/27/2024 6:17 AM EDT [facility] Blood, Arterial 10/27/2024 6 :09 AM EDT 10/27/2024 6:14 AM EDT Ben Blake MD LAB BLOOD ORDERABLES Final Re sult Performing Organization Address City/[facility] Co de Phone Number [facility] [address] * Transfuse Fresh Frozen Plasma (10/27/2024 [...] MD LAB BLOOD ORDERABLES Final Resul t [facility] [address] [place] [address] * Surgical Pathology Exam (10/27/2024 2:38 AM EDT) Only the most recent of2 resultswithin the time period is included. Tissue LEFT KIDNEY STRUCTURE / Unknown 10/27/2024 2:38 AM EDT Narrative [facility] - 10/27/2024 12:00 AM EDT CASE: [id number] PATIENT: BLAIR ANDERSON Clinical History: Transplant kidney with bile duct reconstruction Pre-Operative Diagnosis: Acute kidney injury superimposed on CKD Post-Operative Diagnosis: None Given Specimen(s) Submitted: A. baseline renal biopsy ; B. right lobe liver biopsy; C. left lobe liver biopsy CPT Code(s): 37985 X 1; 38654 X 2; 35609 X 4 Additional Information: FINAL DIAGNOSIS: A. [...] submitted between blue biopsy sponges in cassette [facility]-25-7410 B1-B2. (NAA Mckeon/ns) C. Received in formalin, labeled with the patient's name Blair Anderson and left lobe liver biopsy are two green-georges tissue cores measuring 1.2 and 1.4 cm in length, each with a diameter of 0.1 cm, which are entirely submitted between blue biopsy sponges in cassette [facility]-25-7410 C1-C2. (NAA Mckeon/ns) Microscopic Description: I, the attending pathologist, have personally reviewed all prosector/resident work and pathology slides to determine final diagnosis. Control Materials Reacted Appropriately. Final Diagnosis performed by CLARE FALL MD Pathologist Electronically signed 10/31/2024 01:07:09 PM The Pathologist signing this report is located at [facility], [address] [place] [address], [id number], , CLIA ID: [id number] ADDENDUM: A. Kidney, allograft, baseline, wedge biopsy: [...] Pathologist signing this report is located at [facility], [address] [place] [address], [address], , CLIA ID: [id number] us Kemar Sahni MD PATHOLOGY/CYTOLOGY ORDERABL ES [...] MICROBIOLOGY - GENE RAL ORDERABLES Final Result [facility] [address] * Fungus culture (10/27/2024 2:15 AM EDT) Culture Result No Fungus Isolated At 4 Weeks [facility] Fluid SPECIMEN FROM KIDNEY / Unknown 10/27/2024 2:15 AM EDT 10/27/2024 4:24 AM EDT Narrative [facility] - 11/24/2024 7:52 AM EDT 1) perfusate us Harvey Domínguez III, MD MICROBIOLOGY - GENE RAL ORDERABLES Final Result Performing Organization Address City/[facility]/ZIP Co de Phone Number [facility] [address] [facility]. [address] * Anaerobic culture (10/27/2024 2:15 AM EDT) Culture Result No Anaerobes Isolated in 5 Days [facility] Fluid SPECIMEN FROM KIDNEY / Unknown 10/27/2024 2:15 AM EDT 10/27/2024 4:24 AM EDT [facility] - 10/31/2024 11:43 AM EDT 1) perfusate us Harvey Domínguez III, MD MICROBIOLOGY - GENE RAL ORDERABLES Final Result [facility] [address] [facility]. [address] * (ABNORMAL) TEG-Standard Global Hemostasis (Rapid [...] - 2.1 minutes 10/27/2024 2:44 AM EDT [facility] Citrated Kaolin Angle (TEGHEPARINASE) 60.4(A) 63.0 - 78.0 degrees 10/27/2024 2:44 AM EDT [facility] Citrated Kaolin Maximum Amplitude (TEGHEPARINASE) 42.9(L) 52.0 - 69.0 mm 10/27/2024 2:44 AM EDT [facility] Citrated Functional Fibrinogen- Fibrinogen Level (TEGHEPARINASE) 273.7(L) 278.0 - 581.0 mg/dL 10/27/2024 2:44 AM EDT [facility] Whole Blood (Citrate) 10/27/2024 1:51 AM EDT 10/27/2024 2:03 AM EDT us John Pina MD LAB BLOOD ORDERABLES Final Resu lt [facility] [address] [place] [address], [facility] * Calcium Free, Serum (10/27/2024 12:13 [...] and its performance characteristics determined by [facility] which is certified under the [...] ORDERABLES Final Resu lt [facility] [address] * Repeat Crossmatch (Recipient Sample) (10/26/2024 4:42 PM EDT) Repeat Cx - Recipient The request and specimen(s) for this test have been received and transported to the [facility] at [address] [place] [address]. The [facility] will report results directly to the client. 10/26/2024 4:49 PM EDT [facility] Whole Blood 10/26/2024 4:42 PM EDT 10/26/2024 4:49 PM EDT Narrative [facility] - 10/26/2024 4:49 PM EDT To be sent to [facility] for Donor UNOS#[id number] cross match with Blair Anderson us Sveta Mojica MD LAB BLOOD ORDERABLES Final Resu lt Performing Organization Address City/[facility]/ZIP Co de Phone Number [facility] [address] * (ABNORMAL) Fibrinogen (10/26/2024 6:10 AM EDT) Only the most recent of2 resultswithin the time period is included. Fibrinogen 160(L) 218 - 406 mg/dL 10/26/2024 6:41 AM EDT [facility] Plasma 10/26/2024 6:10 AM EDT 10/26/2024 6:26 AM EDT Result [facility] Sveta Mojica MD LAB BLOOD ORDERABLES Final Resu lt Performing Organization Address [facility] Co de Phone Number [facility] [address] * (ABNORMAL) POC INR (10/26/2024 5:16 [...] 5:16 AM EDT 10/27/2024 6:51 AM EDT Result [facility] Harvey Domínguez III, MD POINT OF CARE TEST ORDERABLES Final Result Performing Organization Address [facility] Co de Phone Number [facility] [address] * POC Lactate (10/26/2024 5:14 AM EDT) Only the most recent of6 resultswithin the time period is included. POC Lactate 1.76 0.50 - 2.20 mmol/L 10/26/2024 5:31 AM EDT [facility] Blood, Arterial 10/26/2024 5 :14 AM EDT 10/26/2024 5:31 AM EDT us Harvey Domínguez III, MD POINT OF CARE TEST ORDERABLES Final Result Performing Organization Address City/[facility] Co de Phone Number [facility] [address] [place] [address]. [address] * POC TCO2 (10/26/2024 5:14 AM EDT) Only the most recent of6 resultswithin the time period is included. POC TCO2, Arterial 23 23 - 27 mmol/L 10/26/2024 5:31 AM EDT [facility] Blood, Arterial 10/26/2024 5 :14 AM EDT 10/26/2024 5:31 AM EDT us Harvey Domínguez III, MD POINT OF CARE TEST ORDERABLES Final Result Performing Organization Address [facility] Co de Phone Number [facility] [address] [place] [address]. [address] * POC Sodium (10/26/2024 5:14 AM EDT) Only the most recent of6 resultswithin the time period is included. POC Sodium 138 136 - 146 mmol/L 10/26/2024 5:31 AM EDT [facility] Blood, Arterial 10/26/2024 5 :14 AM EDT 10/26/2024 5:31 AM EDT us Harvey Domínguez III, MD POINT OF CARE TEST ORDERABLES Final Result Performing Organization Address City/[facility] Co de Phone Number [facility] [address] [facility]. [address] * (ABNORMAL) POC Potassium (10/26/2024 5:14 AM EDT) Only the most recent of6 resultswithin the time period is included. POC Potassium 2.8(LL) 3.5 - 5.3 mmol/L 10/26/2024 5:31 AM EDT [facility] Blood, Arterial 10/26/2024 5 :14 AM EDT 10/26/2024 5:31 AM EDT us Harvey Domínguez III, MD POINT OF CARE TEST ORDERABLES Final Result Performing Organization Address City/[facility] Co de Phone Number [facility] [address] [place] [address]. [address] * (ABNORMAL) POC PO2 (10/26/2024 5:14 [...] Final Result Performing Organization Address [facility] Co de Phone Number [facility] [address] [facility]. [address] * POC PCO2 (10/26/2024 5:14 AM [...] Result Performing Organization Address City/[facility] Co de Phone Number [facility] [address] [facility]. [address] * (ABNORMAL) POC O2 SAT (10/26/2024 [...] Result Performing Organization Address City/[facility] Co de Phone Number [facility] [address] [place] [address]. [address] * POC HCO3 (10/26/2024 5:14 AM EDT) Only the most recent of6 resultswithin the time period is included. POC HCO3, Arterial 22 22 - 26 mmol/L 10/26/2024 5:31 AM EDT [facility] Blood, Arterial 10/26/2024 5 :14 AM EDT 10/26/2024 5:31 AM EDT us Harvey Domínguez III, MD POINT OF CARE TEST ORDERABLES Final Result [facility] [address] [place] [address]. [address] * POC Chloride (10/26/2024 5:14 AM EDT) Only the most recent of6 resultswithin the time period is included. POC Chloride 104 98 - 110 mmol/L 10/26/2024 5:31 AM EDT [facility] Blood, Arterial 10/26/2024 5 :14 AM EDT 10/26/2024 5:31 AM EDT us Harvey Domínguez III, MD POINT OF CARE TEST ORDERABLES Final Result Performing Organization Address [facility] Co de Phone Number [facility] [address] * (ABNORMAL) POC Base Excess (10/26/2024 [...] Final Result Performing Organization Address [facility] de Phone Number [facility] [address] * POC Anion Gap (10/26/2024 5:14 [...] Result Performing Organization Address City/[facility] Co de Phone Number [facility] [address] * POC Sample Type (10/26/2024 5:14 AM EDT) Only the most recent of6 resultswithin the time period is included. POC Sample Type Arterial 10/26/2024 5:31 AM EDT [facility] Blood, Arterial 10/26/2024 5 :14 AM EDT 10/26/2024 5:31 AM EDT us Harvey Domínguez III, MD POINT OF CARE TEST ORDERABLES Final Result Performing Organization Address [facility] Co de Phone Number [facility] [address] [place] [address]. [address] * (ABNORMAL) POC pH (10/26/2024 5:14 AM EDT) Only the most recent of6 resultswithin the time period is included. POC pH, Arterial 7.29(L) 7.35 - 7.45 10/26/2024 5:31 AM EDT [facility] Blood, Arterial 10/26/2024 5 :14 AM EDT 10/26/2024 5:31 AM EDT us Harvey Domínguez III, MD POINT OF CARE TEST ORDERABLES Final Result Performing Organization Address [facility] Co de Phone Number [facility] [address] [place] [address]. [address] * (ABNORMAL) POC hematocrit (10/26/2024 5:14 AM EDT) Only the most recent of6 resultswithin the time period is included. POC Hematocrit 28.0(L) 40 - 52 % 10/26/2024 5:31 AM EDT [facility] Blood, Arterial 10/26/2024 5 :14 AM EDT 10/26/2024 5:31 AM EDT us Harvey Domínguez III, MD POINT OF CARE TEST ORDERABLES Final Result Performing Organization Address City/[facility] Co de Phone Number [facility] [address] [place] [address]. [address] * (ABNORMAL) POC Ionized Calcium (10/26/2024 [...] Result Performing Organization Address City/[facility] Co de Phone Number [facility] [address] [facility]. [address] * (ABNORMAL) POC Glucose (10/26/2024 5:14 AM EDT) Only the most recent of6 resultswithin the time period is included. POC Glucose, Arterial 183(H) 70 - 100 mg/dL 10/26/2024 5:31 AM EDT [facility] Blood, Arterial 10/26/2024 5 :14 AM EDT 10/26/2024 5:31 AM EDT Harvey Domínguez III, MD POINT OF CARE TEST ORDERABLES Final Result Performing Organization Address [facility] Co de Phone Number [facility] [address] [facility]. [address] * (ABNORMAL) POC Hemoglobin (10/26/2024 5:14 AM EDT) Only the most recent of6 resultswithin the time period is included. POC Hemoglobin 9.5(L) 14.0 - 18.0 g/dL 10/26/2024 5:31 AM EDT [facility] Blood, Arterial 10/26/2024 5 :14 AM EDT 10/26/2024 5:31 AM EDT us Harvey Domínguez III, MD POINT OF CARE TEST ORDERABLES Final Result Performing Organization Address City/[facility] Co de Phone Number [facility] [address] [facility]. [address] * (ABNORMAL) TEG-Global With Lysis (Baseline [...] ORDERABLES Fin al Result [facility] [address] [place] [address], [facility] * CENTRAL LINE SINGLE LUMEN PERFORMABLE (10/25/2024 11:13 PM EDT) Narrative Ben Blake MD - 10/25/2024 11:13 PM EDT Ben Blake MD 10/26/2024 7:45 PM [place] Emily Cath Date/Time: 10/25/2024 11:13 PM Performed [...] 7 PM EDT 10/25/2024 10:17 PM EDT [facility] - 10/25/2024 11:13 PM EDT HAV antibodies not detected Aysha Gill MD LAB BLOOD ORDERABLES F inal Result [facility] [address] * Iron Studies (Iron + TIBC) [...] ORDERABLES F inal Result Performing Organization Address [facility] Co de Phone Number [facility] [address] [place] [address]. [address] * Hepatitis B Core Antibody (10/25/2024 10:17 PM EDT) Hep B Core Total Ab Nonreactive Nonreactive 10/25/2024 11:07 PM EDT [facility] Comment:Health Department no tified in accordance with reportable infectious disease guidelines. Serum 10/25/2024 10:1 7 PM EDT 10/25/2024 10:17 PM EDT Narrative [facility] - 10/25/2024 11:07 PM EDT A nonreactive final interpretation indicates that anti-HBc antibodies were not detected in the sample; it is possible that the individual is not infected with HBV. Aysha Gill MD LAB BLOOD ORDERABLES F inal Result Performing Organization Address [facility] Co de Phone Number [facility] [address] [facility]. [address] * Hepatitis C Antibody (10/25/2024 10:17 [...] inal Result [facility] [address] * HIV 1+2 Antibody/Antigen with Reflex (10/25/2024 10:17 PM EDT) HIV 1+2 AB/AGN Nonreactive Nonreactive 10/25/2024 11:03 PM EDT [facility] [facility] Serum 10/25/2024 10:1 7 PM EDT 10/25/2024 10:16 PM EDT Narrative [facility] - 10/25/2024 11:03 PM EDT \HIVRNR Aysha Gill MD LAB BLOOD ORDERABLES F inal Result Performing Organization Address [facility] Co de Phone Number [facility] [address] [facility] * (ABNORMAL) Hepatitis B Surface Antibody, Quantitati (10/25/2024 10:17 PM EDT) HBSAB NUMBER 10.70(H) 0.00 - 9.99 mIU/mL 10/25/2024 11:52 PM EDT [facility] Hep B S Ab Equivocal (A) Nonreactive 10/25/2024 11:52 PM EDT [facility] Serum 10/25/2024 10:1 7 PM EDT 10/25/2024 10:17 PM EDT Aysha Gill MD LAB BLOOD ORDERABLES F inal Result [facility] [address] [facility] * Hepatitis B surface antigen (10/25/2024 10:17 PM EDT) Hep B Surface Ag Nonreactive Nonreactive 10/25/2024 11:12 PM EDT [facility] Comment:Health Department no tified in accordance with reportable infectious disease guidelines. Serum 10/25/2024 10:1 7 PM EDT 10/25/2024 10:17 PM EDT Narrative [facility] - 10/25/2024 11:12 PM EDT Specimen is considered negative for HBsAg. us Asyha Gill MD LAB BLOOD ORDERABLES F inal Result [facility] [address] * (ABNORMAL) APTT, NO ANTICOAGULANT (10/25/2024 10:17 PM EDT) aPTT 41.7(H) 25.5 - 35.0 seconds 10/25/2024 10:36 PM EDT [facility] Plasma 10/25/2024 10:1 7 PM EDT 10/25/2024 10:17 PM EDT us Aysha Gill MD LAB BLOOD ORDERABLES F inal Result Performing Organization Address [facility]/ZIP Co de Phone Number [facility] [address] [facility]. [address] * PTH (10/25/2024 10:17 PM EDT) PTH 36.0 12.0 - 88.0 pg/mL 10/25/2024 11:01 PM EDT [facility] Serum 10/25/2024 10:1 7 PM EDT 10/25/2024 10:17 PM EDT us Aysha Gill MD LAB BLOOD ORDERABLES F inal Result [facility] [address] [facility] * (ABNORMAL) Ferritin (10/25/2024 10:17 PM EDT) Ferritin 623.2(H) 23.9 - 336.2 ng/mL 10/25/2024 11:02 PM EDT [facility] Serum 10/25/2024 10:1 7 PM EDT 10/25/2024 10:17 PM EDT us Aysha Gill MD LAB BLOOD ORDERABLES F inal Result [facility] [address] [place] [address], [facility] * (ABNORMAL) Venous Blood Gas, Line/Syringe [...] - 5.0 % 10/25/2024 10:08 PM EDT [facility] Venous, Line Draw 10/25/2024 10:00 PM EDT 10/25/2024 10:04 PM EDT Aysha Gill MD LAB BLOOD ORDERABLES F inal Result Performing Organization Address [facility] Co de Phone Number [facility] [address] [place] [address]. [place] [address], [facility] * Donor Specific Antibody (DSA) (10/25/2024 10:00 PM EDT) Pathologist [facility] AntiDonor Antibodies The request and specimen(s) for this test have been received and transported to the [facility] at [address] [place] [address]. The [facility] will report results directly to the client. 10/25/2024 10:20 PM EDT [facility] Comment:Testing performed by [facility], [facility], [address] [place] [address]. The [facility] report has been forwarded to the appropriate ordering location. Please refer to this report for patient results. Serum 10/25/2024 10:0 0 PM EDT 10/25/2024 10:20 PM EDT Aysha Gill MD LAB BLOOD ORDERABLES F inal Result Performing Organization Address [facility] de Phone Number [facility] [address] [place] [address] * Hepatitis C RNA, Quant Reflex to Genotyp (10/25/2024 8:18 PM EDT) Pathologist [facility] International Units Not Detected IU/mL 10/27/2024 11:03 AM EDT [facility] Comment:Test methodology for HCV RNA quantification is an FDA-approved nucleic acid amplification assay. The Lower Limit of Quantitation (LLOQ) is 15 IU/mL. The linear range of the assay is 15-100,000,000 IU/mL. The Limit of Detection (LoD) is 12.0 IU/mL for EDTA plasma. The reference range is Not Detected. IU log10 See Note log 10 IU/mL 10/27/2024 11:03 AM EDT [facility] Comment:HCV RNA not detected . Plasma 10/25/2024 8:18 PM EDT 10/25/2024 10:27 PM EDT Aysha Gill MD LAB BLOOD ORDERABLES F inal Result [facility] [address] * Toxoplasma gondii antibody, IgG (10/25/2024 8:18 PM EDT) Toxoplasma Gondii IgG <3.0 0.0 - 7.1 IU/mL 10/27/2024 7:55 AM EDT [facility] Comment: Negative <7.2 Equivocal 7.2 - 8.7 Positive >8.7 Serum 10/25/2024 8:18 PM EDT 10/27/2024 8:06 AM EDT Narrative [facility] - 10/27/2024 8:06 AM EDT PERFORMED AT: [facility] [address] [id number] [employer]CHANIC: Bassam Khalil, PhD PHONE: [phone] Aysha Gill MD LAB BLOOD ORDERABLES F inal Result Performing Organization Address [facility] Co de Phone Number [facility] [address] * ABO/Rh (10/25/2024 7:46 PM EDT) Only the most recent of2 resultswithin the time period is included. ABO Grouping O 10/25/2024 10:23 PM EDT [facility] Rh Type Positive 10/25/2024 10:23 PM EDT [facility] Blood 10/25/2024 7:46 PM EDT 10/25/2024 9:54 PM EDT Ben Blake MD BLOOD BANK TEST ORDERABLES Fi nal Result [facility] [address] * Antibody Screen (10/25/2024 7:46 PM EDT) Only the most recent of2 resultswithin the time period is included. Antibody Screen Negative 10/25/2024 10:41 PM EDT [facility] Blood 10/25/2024 7:46 PM EDT 10/25/2024 9:54 PM EDT Narrative [facility] - 10/25/2024 10:44 PM EDT Testing performed by [facility] Transfusion Service Ben Blake MD BLOOD BANK TEST ORDERABLES Fi nal Result [facility] [address] * Hox - HLA Antibody-Detailed Report (10/22/2024 12:32 PM EDT) 10/22/2024 12:3 2 PM EDT Abdulkadir Gaspar MD LAB BLOOD ORDERABLES Final Resul t [facility] [address] [address] * HOX - HLA CROSSMATCH + Detailed Antibody (10/20/2024 5:04 PM EDT) 10/20/2024 5:04 PM EDT us Abdulkadir Gaspar MD LAB BLOOD ORDERABLES Final Resul t [facility] [address] [place] [address] * Hox - ABO Typing Report (10/20/2024 5:03 PM EDT) 10/20/2024 5:03 PM EDT us Abdulkadir Gaspar MD LAB BLOOD ORDERABLES Final Resul t Performing Organization Address City/[facility]/ZIP Co de Phone Number [facility] [address] [address] * X-ray Comparison Images (10/20/2024 9:10 AM EDT) Only the most recent of7 resultswithin the time period is included. Narrative EXTERNAL - 10/20/2024 9:10 AM EDT Images associated with this accession number were presented to us for comparison to an examination performed here. us Provider Not In System IMG DIAGNOSTIC IMAGING OR DERABLES Final Result Performing Organization Address City/[facility] Co de Phone Number EXTERNAL * PRA-HLA Ab Screen (Cytotoxic) (10/15/2024 6:08 AM EDT) Pathologist [facility] The request and specimen(s) for this test have been received and transported to the [facility] at [address] [place] [address]. The [facility] will report results directly to the client. 10/15/2024 6:42 AM EDT [facility] Comment:The request and spec imen(s) for this test have been received and transported to the [facility] at [address] [place] [address]. The [facility] will report results directly to the client. Serum 10/15/2024 6:08 AM EDT 10/15/2024 6:42 AM EDT us Cosmo Pacheco MD LAB BLOOD ORDERABLES Final Resul t Performing Organization Address [facility] Co de Phone Number [facility] [address] [place] [address] * LEFT HEART CATH (10/14/2024 2:09 PM EDT) 10/14/2024 11:4 7 AM EDT Narrative [facility] - 10/14/2024 9:27 PM EDT *[facility]* Cardiac Vulcanizing Machine Operator [address] [place] [address] CATHETERIZATION LAB STUDY Patient: Blair Anderson Age: [...] manner. 3. Right radial artery access. A 1Lh92if Glidesheath - Slender - .021 sheath was [...] + + !LV pressure s/d, ed !112, dP/ps=1622az Hg/s! + + + !Aortic pressure s/d (m)!106/58 (75) ! + + + ATTESTATION: Dr. Matta was present for the entire procedure. Dr. Jay Quan was the initial author of this report. Prepared and electronically signed by Irving Matta MD [id number]:27:50 Procedure Note Irving Matta MD - 10/14/2024 *[facility]* Cardiac Vulcanizing Machine Operator [address] [place] [address] CATHETERIZATION LAB STUDY Patient: Blair Anderson Age: [...] manner. 3. Right radial artery access. A 1Us86hj Glidesheath - Slender - .021sheath was advanced [...] complications. Contrast: Omnipaque 350 25ml (total dose). Uemlghygq343 125ml (wasted). Radiation: Fluoroscopy time: 15min. Total [...] + !LV pressure s/d, ed !, 22, dP/mx=4894zg Hg/s! + + + !Aortic pressure s/d (m)!106/58 (75) ! + + + ATTESTATION: Dr. Matta was present for the entire procedure. Dr. Jay Quan wasthe initial author of this report. Prepared and electronically signed by Irving Matta MD [id number]:27:50 [place] [id number] Final Result [facility] * Cardiac Cath Documents [...] - 90 ug/dL 10/13/2024 7:16 AM EDT [facility] Comment: HEMOLYSIS EVIDENT. RESULTS MAY BE INFLUENCED. Critical Result [id number] Called to and read back by: KEY MELO RN at: 10/13/2024 07:15:55 by:NISREEN Plasma 10/13/2024 5:35 AM EDT 10/13/2024 6:19 AM EDT us Ellis Mays DO LAB BLOOD ORDERABLES Final Resul t [facility] [address] [place] [address], [facility] * Vancomycin, random (10/11/2024 3:02 AM EDT) Only the most recent of3 resultswithin the time period is included. Vancomycin Random 13.4 ug/mL 10/11/2024 3:37 AM EDT [facility] Comment:Reference range not established for this test. Plasma 10/11/2024 3:02 AM EDT 10/11/2024 3:08 AM EDT us Jodi Ortiz PharmD LAB BLOOD ORDERABLES Final Result [facility] [address] [place] [address], [facility] * IR Paracentesis incl imaging [...] diagnostic and therapeutic paracentesis. Bakari Wahl CNP, Gift Basket Packer Procedure and Findings: The procedure was performed [...] for diagnostic andtherapeutic paracentesis. Bakari Wahl CNP, Gift Basket Packer Procedure and Findings: The procedure was performed [...] [facility] Fluid ABDOMEN / Unknown 10/10/2024 1:51 PM EDT 10/10/2024 3:56 PM EDT us Gerri Peterson MD MICROBIOLOGY - GENERAL ORDERABL ES Final Result [facility] [address] * (ABNORMAL) Body fluid cell count (10/10/2024 1:51 PM EDT) Color, Fluid Yellow(A) Colorless, Pale Yellow 10/10/2024 5:29 PM EDT [facility] Clarity, Fluid Clear 10/10/2024 5:29 PM EDT [facility] Neutrophil %, Fluid 9 % 10/10/2024 5:29 PM EDT [facility] Lymphocytes %, Fluid 13 % 10/10/2024 5:29 PM EDT [facility] Mesothelial %, Fluid 6 % 10/10/2024 5:29 PM EDT [facility] Macrophage %, Fluid 72 % 10/10/2024 5:29 PM EDT [facility] RBC, Fluid 2,662 /uL 10/10/2024 4:41 PM EDT [facility] Total Nucleated Cells, Fluid 89 /uL 10/10/2024 4:41 PM EDT [facility] Comment:Total Nucleated Cell s represent WBCs and other nucleated cells in the fluid such as lining cells. Ascitic Fluid ABDOMEN / Unknown 1:51 PM EDT 10/10/2024 3:56 PM EDT us Gerri Peterson MD BODY FLUIDS AND STOOLS ORDERABL ES Final Result [facility] [address] [place] [address], [facility] * UPPER GI ENDOSCOPY (10/10/2024 11:48 AM EDT) 10/10/2024 11:4 8 AM EDT Narrative [facility] - 10/10/2024 12:34 PM EDT [id number] Procedure Date: 10/10/2024 11:48 AM Patient Name: Blair Anderson Date of : 1985 Admit Type: Inpatient Age: 39 Gender: Male Note Status: Finalized Attending MD: Lino Soto MD, [id number] Procedure: Upper GI endoscopy Indications: Gastroesopahgeal variceal [...] verified by the physician, the nurse, the hide washer and the medical equipment technician in the pre-procedure area in the [...] to hypotension Procedure Code(s): --- Professional --- 01940, GC, Esophagogastroduodenoscopy, flexible, transoral; diagnostic, including collection of specimen(s) by brushing or washing, when performed (separate procedure) Diagnosis Code(s): --- Professional --- I85.00, Esophageal varices without bleeding K76.6, Portal hypertension K31.89, Other diseases of stomach and duodenum CPT copyright 2022 [employer]. All rights reserved. The codes documented in this report are preliminary and upon ski lift operator review may be revised to meet [...] In: 12:10:16 PM Scope Out: 12:17:[address] [place] [address], [address] us Provider Not In System PROCEDURE/MINOR SURGICAL ORDERABLES Final Result [facility] * ECHO STRESS W/ CONTRAST (10/09/2024 4:37 PM EDT) Anatomical Region Laterality Modality Chest Ultrasound 10/09/2024 2:40 PM EDT Narrative 10/09/2024 6:45 PM EDT * [facility]* [address] [place] [address]209 Stress Echocardiogram Patient: Blair Anderson Room: 8142 Height: 76in MR Number: [id number] : 1985 Weight: 262lb Account: [id number] Gender: M BP: 125 / 77 Study Date: 10/09/2024 Age: 39 BSA: 2.48m^2 Referring physician: Gerri Peterson Interpreting physician: Tonya Henriquez MD FELLOW Lisa Jha MD PERFORMING Tonya Henriquez MD COAL PULVERIZING OPERATOR [employer] Askanda REFERRING Gerri Peterson Sharice [...] was augmented by the addition of hand trampoline team coach and leg lifts. The infusion was terminated [...] at baseline or with provocation, shows no hjaen-go-oaxa atrial level shunt. - Pulmonary arteries: Systolic [...] at baseline or with provocation, shows no ekykw-ri-ydzj atrial level shunt. Pulmonary artery: - Systolic [...] at baseline or with provocation, shows no gupmn-gd-hhjl atrial level shunt. Pericardium: - There is [...] peak heart rate and blood pressure was 76170wb Hg/min. Stress testing did not produce any [...] Reviewed and confirmed by Tonya Henriquez MD [id number]:45:20 Procedure Note Tonya Henriquez MD - 10/09/2024 * [facility]* [address] [place] [address] Stress Echocardiogram Patient: Blair Anderson Room: 8142 Height: 76in MR Number: [id number] : 1985 Weight: 262lb Account: [id number] Gender: M BP: 125 / 77 Study Date: 10/09/2024 Age: 39 BSA: 2.48m^2 Referring physician: Gerri Peterson Interpreting physician: Tonya Henriquez MD FELLOW Lisa Jha MD PERFORMING Tonya Henriquez MD COAL PULVERIZING OPERATOR [employer] ORDERING Gerri Peterson REFERRING Gerri Peterson ATTENDING Tequila Newton ADMITTING Gómez Blanchard Procedure:STRESS ECHO - PHARMACOLOGIC Order: Indications: Pre-Operative Clearance (Z01.818). PMH: EtOH Use Disorder. Risk factors: Hypertension. Dyslipidemia. Study data: Height: 76in. 193cm. Weight: 262lb. 118.8kg. The previousstudy was not available, so comparison was made to the report of 07/15/2024. Study status: Routine. [facility]. [...] was augmented by the addition of hand trampoline team coach and leg lifts. The infusion was terminated [...] at baseline or with provocation, shows no rtnwd-zh-sust atrial level shunt. - Pulmonary arteries: Systolic [...] study at baseline or with provocation, showsno hqqpj-tg-tfcp atrial level shunt. Pulmonary artery: - Systolic [...] at baseline or with provocation, shows no ipmbc-gm-gpmh atrial level shunt. Pericardium: - There is [...] heart rate). The maximal predicted heart rate [id number]. The target heart rate was 152bpm. The target heart rate was achieved.The heart rate response to stress is normal. There is a normal resting blood pressure with an appropriate response to stress. The rate-pressureproduct for the peak heart rate and blood pressure was 65651uu Hg/min. Stress testing did not produce any [...] Reviewed and confirmed by Tonya Henriquez MD [id number]:20 us Gerri Peterson MD CV ECHO ORDERABLES Final Result * Renal Tx Recipient (10/09/2024 4:59 AM EDT) Renal Transplant Recipient The request and specimen(s) for this test have been received and transported to the [facility] at [address] [place] [address]. The [facility] will report results directly to the client. 10/09/2024 7:26 AM EDT [facility] Blood 10/09/2024 4:59 AM EDT 10/09/2024 7:26 AM EDT us Aaron Gonzalez MD LAB BLOOD ORDERABLES Final Resu lt Performing Organization Address [facility]/ZIP Co de Phone Number [facility] [address] [place] [address] * TSH (Thyroid Stimulating Hormone) (10/07/2024 6:37 PM EDT) Pathologist [facility] TSH 0.81 0.45 - 4.12 uIU/mL 10/07/2024 8:17 PM EDT [facility] Serum 10/07/2024 6:37 PM EDT 10/07/2024 6:50 PM EDT Gerri Peterson MD LAB BLOOD ORDERABLES Final Resu lt Performing Organization Address City/[facility]/ZIP Co de Phone Number [facility] [address] [place] [address] from Last 3 Months or Most Recently Relevant to Health Maintenance Additional Health Concerns 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, VRE- urine 10/31/202410/13 Insurance [facility] [employer] [facility] [employer] TRANSPLANT GLOBAL Member Subscriber Plan / Payer ( fective 2024-2025) Name:Blair Anderson Relation to Subscriber:Self Name:Blair Anderson Payer ID:[id number] Group ID:Not on file Type:Transplant Address: [address] [place] [address] Advance Directives For more information, please contact: [phone] * Full Code (Latest Code Status on [...] 9:55 PM 08/19/2024 4:56 PM Care Teams Log Chipper Relationship Specialty Start Date End Date Enedina Mcguire NP [address] [place] [address] PCP - General Internal Medicine 10/05/24 Maureen Pantoja, ЮЛИЯ Txp Post Coordinator Transplant Hepatology 10/28/24
--- OUTSIDE RECORDS SUMMARY | 2025-01-09 12:30 | XMS_ITS ---
Author Organization [facility] Address [address] [place] [address] Care Team Providers Care Hiv Cts Specialist Name Role Phone Enedina Mcguire NP Primary Care Provider [phone] Maureen Pantoja RN Unavailable Unavail able Transplant Episode Kidney Recipient [facility] ([place], [place]) - [facility] Organ Received: Left Kidney Transplanted on 10/27/2024 Marked as Active Follow-up on 10/27/2024 Kidney CoordinatorJosr Weber RN Phone: N/A Fax: N/A Email: N/A [place] Organ Diagnosis Organ Primary Contributory Kidney Hepatorenal [...] N/A N/A Flaquito Mayen MD Txp Surgeon [phone] N/A Bruno Gonzalez MD Txp Investment Counselor [phone] N/A Yovanny Curran MD Referring Physician [phone] N/A Events Post-Transplant Pre-Transplant Admitted: 10/25/2024 Referred: 10/07/2024 Transplanted: 10/27/2024 Evaluation began: Discharged: 11/02/2024 Committee: 10/20/2024 Center waitlisted: 5
--- OUTSIDE RECORDS SUMMARY | 2025-01-09 12:30 | XMS_ITS | Encounter Summary ---
Author Organization [facility] Address [address] [place] [address] Care Team Providers Care Magazine Feeder Name Role Phone Enedina Mcguire APRN Primary Care Provider + Reason for Visit * Reason Comments Med Refill Encounter Details Date Type Department Care Team ([facility] st Contact Info) Description 12/12/2024 Refill [facility] INTERNAL MEDICINE [address] [place] [address] Enedina Mcguire APRN [address] [place], [place] [id number] Acquired hypothyroidism; Secondary esophageal varices without bleeding Social History Tobacco Use Types Packs/Day Years Used Date Smoking Tobacco: Former Cigarettes 4 20 Passive Smoke Exposure: Past Smokeless Tobacco: Current Comments:MARIJUANA USE ABOUT 2X PER WEEK - reports no use 08-05-2024 Alcohol Use Standard Drinks/Week Comments Not Currently 0 (1 standard drink = 0.6 oz pure alcohol) 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 [facility] Utilities Answer Date Recorded In the past 12 months has [employer], gas, oil, or water [employer] threatened to shut off services in [...] Measure Score 0 10/02/2022 [facility]ational Stress Questionnaire Answer Date [...] GED or equivalent No 07/09/2024 Preferred Language Bahraini 07/09/2024 PHQ-2 Answer Date Recorded Patient Health [...] Description 04/02/2025 2:15 PM EST Office Visit [facility] PAIN [facility]NAGEMENT [address] [address] Vazquez Christie PA-C [address] [place] [address] documented as of this encounter Visit Diagnoses Diagnosis Acquired hypothyroidism Unspecified hypothyroidism Secondary esophageal varices without bleeding documented in this encounter Additional Health Concerns Assessment Noted Time PHQ-2 Depression Total Score: 1 12/31/19 24 3:25 PM EDT documented as of this encounter Care Teams Magazine Feeder Relationship Specialty Start Date End Date Enedina Mcguire APRN [address] [place] [address] PCP - General Nurse Practitioner 10/27/24 documented as of this encounter
--- OUTSIDE RECORDS SUMMARY | 2025-01-09 12:30 | XMS_ITS | Encounter Summary ---
Author Organization [facility] Address [address] [place] [address] Care Team Providers Care Caddie Name Role Phone Enedina Mcguire NP Primary Care Provider [phone] Maureen Pantoja RN Unavailable Unavail able Source [...] release of HIV test results or diagnoses. [id number] Reason for Visit * Reason Comments Results Encounter Details Date Type Department Care Team (Riky st Contact Info) Description 11/18/2024 Telephone [facility] Liver Transplant at [address] [address] Maureen Pantoja, RN Results Social [...] In the past 12 months has e [employer] gas, oil, or water [employer] threatened to shut off services in your [...] documented as of this encounter Care Teams Caddie Relationship Specialty Start Date End Date Enedina Mcguire NP [address] [place] [address] PCP - General Internal Medicine 10/05/24 Maureen Pantoja, RN Txp Post Coordinator Transplant Hepatology 10/28/24 documented as of this encounter
--- OUTSIDE RECORDS SUMMARY | 2025-01-09 12:30 | XMS_ITS | Encounter Summary ---
Author Organization [employer] ([place], [place], [place], [place]) Address [address] [place] [address] Care Team Providers Care Cafeteria Or Lunchroom Checker Name Role Phone Unavailable Primary Care Provider Unavailabl e Encounter Details Date Type Department Care Team (Late st Contact Info) Description 06/03/2018 Transcribed Document [facility] Family Medicine [address] [place] [address] ProviderEbenezer MD [address] [place], [place] [id number] Social History Tobacco Use Types Packs/Day Years [...] - Historical ProviderMD - 06/03/2018 12:08 PM EXPANDED DUTY DENTAL ASSISTANT ED Assessment Entered On: 06/03/2018 14:51 EST Performed On: 06/03/2018 13:50 EST by Lizeth Almeida, B[employer] PRODUCT DEVELOPMENT MANAGER Quick Look Assessment Level of Consciousness : Alert Affect/Behavior : Calm, Cooperative Orientation : Oriented x 4 Skin Color : Other: [place] Skin Temperature : Warm Skin Description : Dry Lizeth Almeida, RN - 06/03/2018 14:50 EST ED General-Functional Assess Communication Barrier : None Primary Language : Hungarian Any Spiritual/Cultural Needs or Requests : No [...] Electronically signed by Luis Eduardo Ochoa Conversion Control Systems Developer Cerner at 08/29/2022 6:34 PM CDT documented in this encounter Plan of Treatment Not on file documented as of this encounter Visit Diagnoses Not on filedocumented in this encounter
--- OUTSIDE RECORDS SUMMARY | 2025-01-09 12:30 | XMS_ITS | Encounter Summary ---
Author Organization [facility] Address [address] [place] [address] Care Team Providers Care Fourth Officer Name Role Phone Enedina Mcguire NP Primary Care Provider + [phone] Maureen Pantoja RN Unavailable Unavail able Source [...] release of HIV test results or diagnoses. [id number] Reason for Visit * Reason Comments Results Encounter Details Date Type Department Care Team (Riky st Contact Info) Description 01/05/2025 Telephone [facility] Liver Transplant at [address] [address] Maureen Pantoja, RN Results Social [...] In the past 12 months has e [employer], gas, oil, or water [employer] threatened to shut off services in your [...] documented as of this encounter Care Teams Fourth Officer Relationship Specialty Start Date End Date Enedina Mcguire NP [address] [place] [address] PCP - General Internal Medicine 10/05/24 Maureen Pantoja, ЮЛИЯ Txp Post Coordinator Transplant Hepatology 10/28/24 documented as of this encounter
--- OUTSIDE RECORDS SUMMARY | 2025-01-09 12:30 | XMS_ITS | Encounter Summary ---
Author Organization [facility] Address [address] [place] [address] Care Team Providers Care Engineer Technical Staff Name Role Phone Enedina Mcguire NP Primary Care Provider + [phone] Maureen Pantoja RN Unavailable Unavail able Source [...] release of HIV test results or diagnoses. [id number] Health Encounter Details Date Type Department Care Team (Late st Contact Info) Description 12/31/2024 Chart Note [facility] Liver Transplant at [address] [place] [phone] Marlene Ro MA 12/31 Labs entered from [facility] Social History Tobacco Use Types Packs/Day Years Used Date Smoking Tobacco: Former Cigarettes Smokeless Tobacco: Current Alcohol Use Standard Drinks/Week Comments Yes 0 (1 standard drink = 0.6 oz pure alcohol) History of alcohol abuse, reports no use in 3 week- typically endorses use as 4 glasses of wine a days Utilities Answer Date Recorded In the past 12 months has e [employer], gas, oil, or water [email or web address] threatened to shut off services in your [...] 11:59 AM EDT 12/31 Labs entered from [facility] documented in this encounter Plan of [...] 2.4 mg/dL Plasma Narrative Resulting Agency Comment [facility] Result [facility] LAB BLOOD ORDERABLES Denisse l Result * Hepatic Function Panel (12/31/2024 9:41 AM EDT) Bilirubin, Direct 0.1 Bilirubin, Indirect 0.4 Alkaline Phosphatase 66 ALT 14 AST 22 Total Bilirubin 0.5 Total Protein 6.4 Plasma Narrative Resulting Agency Comment [facility] Result [facility] LAB BLOOD ORDERABLES Denisse l Result * (ABNORMAL) Renal Function Panel w/o EGFR (12/31/2024 9:41 AM EDT) Glucose 91 BUN 18 CO2 26(A) 13 - 22 mmol/L Creatinine 0.90 Potassium 4.2 Sodium 141 Chloride 105 Phosphorus 4.8 2.5 - 4.9 mg/dL Calcium 9.5 EGFR 113 mg/dL Albumin 4.5 3.5 - 5.0 g/dL Blood Narrative Resulting Agency Comment [facility] Result [facility] LAB BLOOD ORDERABLES Denisse l Result * Creatinine, urine, random (12/31/2024 9:41 AM EDT) Creatinine, Urine 57 Urine Narrative Resulting Agency Comment [facility] Provider Result Type Result [facility] URINE ORDERABLES Final Re sult * Urinalysis w/Rfl to Microscopic (12/31/2024 9:41 AM EDT) Glucose, UA Negative Negative Ketones, UA Negative Negative Blood, UA Negative Negative Bilirubin, UA Negative Negative Urobilinogen, UA Normal Normal Protein, UA Negative Negative pH, UA 5.5 4.5 - 8.0 Specific [place], UA 1.025 1.005 - 1.030 Clarity, UA Clear Clear Color, UA Yellow Light Yellow, Yellow Urine Narrative Resulting Agency Comment [facility] Provider URINE ORDERABLES Final Re [...] 3.0 10^3/mL Blood Narrative Resulting Agency Comment [facility] Result [facility] Provider LAB BLOOD ORDERABLES Denisse l Result * Urine Protein, Tot, Random (w/o Creat) (12/31/2024 9:41 AM EDT) Total Protein, Ur 17.0 Urine Narrative Resulting Agency Comment [facility] Result [facility] Historical Provider URINE ORDERABLES Final Re sult documented in this encounter Visit Diagnoses Not on filedocumented in this encounter Additional Health Concerns Infection Onset Date Last Indicated Resolved Time 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
--- OUTSIDE RECORDS SUMMARY | 2025-01-09 12:30 | XMS_ITS | Encounter Summary ---
Author Organization [employer] ([place], [place], [place], [place]) Address [address] [place] [address] Care Team Providers Care Foundry Helper Name Role Phone Unavailable Primary Care Provider Unavaillia e Encounter Details Date Type Department Care Team (Late st Contact Info) Description 06/03/2018 Transcribed Document [facility] [place] Medicine [address] [place] [address] ProviderEbenezer MD [address], [place] [id number] Social History Tobacco Use Types Packs/Day Years [...] - Historical ProviderMD - 06/03/2018 1:05 PM VENEER TAPING MACHINE OPERATOR Patient: JULIEN ZELAYA Age: 33 years Sex: [...] 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 lacerations noted with bleeding controlled [...] EST Height Source Stated Height Entry Format Holt Height/Length, JAPANESE (ft) 6 ft Height/Length JAPANESE 4 Inch CLINICALHEIGHT 193.04 cm [place] Body Weight 85.74 kg Weight Source, ED Standing scale Weight Entry Format Holt Weight Hungarian lb 265 lb CLINICALWEIGHT 120.45 kg Body [...] 14:22 EST, Discharge to: Home. Prescriptions: Prescription [facility]: Keflex 500 mg oral capsule (Prescribe): [...] Electronically signed by Luis Eduardo Ochoa Conversion Underground Mining Section Foreman Cerner at 08/29/2022 6:34 PM CDT documented in this encounter Plan of Treatment Not on file documented as of this encounter Visit Diagnoses Not on filedocumented in this encounter
--- OUTSIDE RECORDS SUMMARY | 2025-01-09 12:30 | XMS_ITS ---
Author Organization [facility] Address [address] [place] [address] Care Team Providers Care Health Education Coordinator Name Role Phone Enedina Mcguire NP Primary Care Provider + [phone] Maureen Pantoja RN Unavailable Unavail able Transplant Episode Liver Recipient [facility] ([place], [place]) [facility] Organ Received: Liver Transplanted on 10/26/2024 Marked as Active Follow-up on 10/26/2024 Liver CoordinatorMaureen Pantoja RN Phone: N/A Fax: N/A Email: N/A [place] Organ Diagnosis Organ Primary Contributory Liver Alcohol-Associated [...] N/A N/A Chris Orosco MD Referring Physician [phone] N/A Maureen Leeanna Pantoja, RN Txp Post Coordinator N/A N/A N/A NUBIA Barros Txp Objective C Developer N/A N/A N/A Harvey Domínguez III, MD Txp Surgeon [phone] N/A Mary Butler RN Txp Pre Coordinator N/A N/A N/A Events Post-Transplant Pre-Transplant Admitted: 10/25/2024 Referred: 08/13/2024 Transplanted: 10/26/2024 Evaluation began: Discharged: 11/02/2024 Committee: 10/14/2024 Center waitlisted: Pending Checklist Tasks (Due on or before 02/09/2025) Name Due Date Attached Appoint ment Social Work Consult 01/05/2025 Appointments (12/09/2024 - 02/09/2025) When With Visit Type Description 12/09/2024 Txp Kady De La Rosa Established Patient Encounter for therapeutic drug monitoring (Primary Dx); S/P liver transplant ([facility]); Hypomagnesemia; Kidney transplant recipient; Hypertension, unspecified type; Gastroesophageal reflux disease, unspecified whether esophagitis present 12/09/2024 Txp Hep - Larry S Established Patient Kidney transplant recipient (Primary Dx); Immunosuppressive management encounter following liver transplant ([facility]); Hypomagnesemia; S/P liver transplant ([facility]); Hypertension, unspecified type; Hyperparathyroidism ([facility]) 01/06/2025 Txp Hep - Paci, P Established Patient S/P liver transplant ([facility]) (Primary Dx); Immunosuppression ([facility]); Kidney transplant recipient; Alcohol use disorder 01/06/2025 Txp Hep Wilmer Juarez S Established Patient Kidney transplant recipient (Primary Dx); Hypomagnesemia; Hyperphosphatemia
[2025-01-09 12:54] LABS: Bilirubin,Urine Negative (Negative); Color,Urine YELLOW (Yellow); Glucose,Urine (UA) Negative (Negative); Ketones,Urine Negative (Negative); Leukocyte Esterase,Urine Negative (Negative); PH,Urine 6.0 (5.0-8.5); Protein,Urine Negative (Negative); Specific Gravity, Urine 1.020 (1.005-1.030); Urobilinogen,Urine 0.2 EU/dl (0.2)
[2025-01-09 13:00] LABS: Hematocrit 35.9 % (42.0-52.0); Hemoglobin 12.4 g/dL (14.1-18.0); Immature Granulocytes % 1.1 %; Mean Corpuscular HGB Conc 34.5 g/dL (31.8-35.4); Mean Corpuscular Hemoglobin 32.2 pg (27.0-31.2); Mean Corpuscular Volume 93.2 fl (80-94); Nucleated Red Blood Cells % 0 %; Platelet Count 114 K/mm3 (142-424); Red Blood Count 3.85 M/mm3 (4.60-6.20); Red Cell Distribution Width-SD 50.9 fL
[2025-01-09 13:27] LABS: Amorphous Sediment,Urine Trace /lpf; Squamous Epithelial Cell,Urine Occasional #/hpf (0-5); WBC,Urine Occasional #/hpf (0-3)
[2025-01-09 13:29] LABS: Chloride 107 mmol/L (98-107)
[2025-01-09 13:30] LABS: Albumin Level 5.0 g/dl (3.5-5.0); Sodium 138 mmol/L (136-145)
[2025-01-09 13:31] LABS: Potassium 4.3 mmoL/L (3.5-5.1)
[2025-01-09 13:33] LABS: Alanine Aminotransferase 13 U/L (12-78); Alkaline Phosphatase 57 U/L (38-126); Aspartate Amino Transferase 22 U/L (17-59); Bilirubin,Direct 0.4 mg/dl (0.0-0.4); Bilirubin,Indirect 0.6 mg/dL (0.0-0.9); Bilirubin,Total 1.0 mg/dl (0.2-1.3); Bilirubin,Unconjugated 0.7 mg/dL (0.0-1.1); Blood Urea Nitrogen 20 mg/dl (9-20); Calcium 10.1 mg/dl (8.4-10.2); Creatinine,Serum 0.90 mg/dl (0.66-1.25); Estimated Glomerular Filt Rate 93 ml/min (>60); GFR (African American) 113 ML/MIN (>60); Glucose 108 mg/dl (74-100); Phosphorous 4.4 mg/dl (2.5-4.5); Total Protein,Serum 7.3 g/dl (6.3-8.2)
[2025-01-09 13:34] LABS: Magnesium 1.3 mg/dl (1.6-2.3)
[2025-01-09 13:39] LABS: White Blood Count 1.8 K/mm3 (4.8-10.8)
[2025-01-09 13:43] LABS: Anion Gap 12.3 mEq/L (5-15); Carbon Dioxide 23 mmol/L (22.0-30.0)
[2025-01-09 14:42] LABS: Total Cells Counted 24
[2025-01-09 14:43] LABS: RBC Morphology Normal
== END 2025-01-09 23:59 | disposition home or self-care (01) ==
LOC: LAB 12:17
PROVIDERS: PCP Nurse Practitioner Family; Visit Provider Surgery
DX: K74.60 Unspecified cirrhosis of liver (principal); R18.8 Other ascites
CPT/HCPCS: 36415; 80069; 80076; 80197; 81001; 82570; 83735; 84156; 85007; 85025; 87086

== ENCOUNTER 2025-01-14 10:42 | Outpatient (CLI) | payer OTHER, SELFPAY ==
--- OUTSIDE RECORDS SUMMARY | 2024-11-04 08:40 | XMS_ITS | Encounter Summary ---
Author Organization [facility] Address [address] [place] [address] Care Team Providers Care Station Supervisor Name Role Phone Enedina Mcguire NP Primary Care Provider + [phone] Maureen Pantoja RN Unavailable Unavail able Source [...] release of HIV test results or diagnoses. [id number] Reason for Visit * Reason Comments Liver Transplant Follow-up Encounter Details Date Type Department Care Team (Late st Contact Info) Description 11/04/2024 8:40 AM EDT Office Visit [facility] Liver Transplant at [address] [address] Cosmo Pacheco MD [address] [place] [address] Liver/[place] [address] Liver transplant recipient (CMS-HCC) (Primary [...] the past 12 months has th e [employer], gas, oil, or water company threatened to [...] Nutrition: patient continues close f/u w/ transplant dope house operator helper. - Bone health: Vit D level to be drawn ~POD#90. - Labs: Labs (CBC w/ diff, renal panel, liver panel, tacro level) twice a week. Lipid panel, [id number] Vit D level to be drawn at [...] management for this patient. Cosmo Pacheco MD Medical Laboratory Technologist of Transplant Surgery [phone] (m) [1] Allergies Allergen Reactions Adhesive Itching [...] Diagnosis Liver transplant recipient ([facility])- Primary Alcoholic cirrhosis of liver with ascites ([facility]) Kidney transplant recipient Acute kidney injury superimposed on CKD ([facility]) CKD (chronic kidney disease) stage 4, GFR 15-29 ml/min ([facility]) Chronic kidney disease, Stage IV (severe) Immunosuppressive management encounter following liver transplant (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
--- OUTSIDE RECORDS SUMMARY | 2024-11-11 09:30 | XMS_ITS | Encounter Summary ---
Author Organization [facility] Address [address] [place] [address] Care Team Providers Care Camera Tuning Engineer Name Role Phone Enedina Mcguire NP Primary Care Provider + [phone] Maureen Pantoja RN Unavailable Unavail able Source [...] release of HIV test results or diagnoses. [id number] Health Encounter Details Date Type Department Care Team (Late st Contact Info) Description 11/11/2024 9:30 AM EDT Office Visit [facility] Psychiatry Transplant at [facility] [address] [facility] [address] [place] [address] Craig Warren PsyD [address] [facility] [address] [place] [address] PTSD (post-traumatic stress disorder) (Primary [...] In the past 12 months has th [employer], [employer], or [employer] threatened to shut off services in your [...] any time in the past 12 m [facility], were you homeless or [...] alcohol and CKD IIIb/IV. Seen by this principal technical writer for pre-surgical evaluation. PMH includes PTSD [...] documented as of this encounter Care Teams Camera Tuning Engineer Relationship Specialty Start Date End Date Enedina Mcguire NP [address] [place] [address] PCP - General Internal Medicine 10/05/24 Maureen Pantoja, RN Txp Post Coordinator Transplant Hepatology 10/28/24 documented as of this encounter
--- OUTSIDE RECORDS SUMMARY | 2024-11-11 10:30 | XMS_ITS | Encounter Summary ---
Author Organization [facility] Address [address] [place] [address] Care Team Providers Care Distribution Technician Name Role Phone Enedina Mcguire NP Primary Care Provider [phone] Maureen Pantoja RN Unavailable Unavail able Source [...] release of HIV test results or diagnoses. [id number] Reason for Visit * Reason Comments Kidney Transplant Follow-up Encounter Details Date Type Department Care Team (Late st Contact Info) Description 11/11/2024 10:30 AM EDT Office Visit [facility] Transplant at [facility] [address] [facility] [address] [place] [address] Unknown, Attending Provider Seble Colon [address] [facility], [facility] [address] [place] [address] Kidney replaced by transplant (Primary [...] Activity: Unknown (07/14/2024) Received from [facility] Exercise Vital Sign Days of Exercise per Week: Patient unable to answer Minutes of Exercise per Session: Not on file Stress: Patient Unable To Answer (07/14/2024) Received from [facility] Burkinan [place] of Occupational Health - Occupational Stress Questionnaire Feeling of Stress : Patient unable to answer Social Connections: Patient Unable To Answer (07/14/2024) Received from [facility] Social Connection and Isolation Panel [NHANES] Frequency [...] Lastdose 11/26/24 blood sugar diagnostic (GLUCOSE BLOOD) [facility] Use to test blood sugar up to 4 times a day. blood-glucose meter (TRUE METRIX GLUCOSE METER) [facility] [...] times a day. naloxone (NARCAN) 4 mg/actuation [place] Apply 1 spray in one nostril if [...] Results Component Value Date PTH 36.0 10/25/2024 [id number] 7.1 (L) 10/08/2024 Hemoglobin A1C: Lab Results [...] documented as of this encounter Care Teams Distribution Technician Relationship Specialty Start Date End Date Enedina Mcguire NP [address] [place] [address] PCP - General Internal Medicine 10/05/24 Maureen Pantoja, RN Txp Post Coordinator Transplant Hepatology 10/28/24 documented as of this encounter
--- OUTSIDE RECORDS SUMMARY | 2024-11-25 09:00 | XMS_ITS | Encounter Summary ---
Author Organization [facility] Address [address] [place] [address] Care Team Providers Care Aircraft Body Repairer Name Role Phone Enedina Mcguire NP Primary Care Provider + [phone] Maureen Pantoja RN Unavailable Unavail able Source [...] release of HIV test results or diagnoses. [id number] Health Encounter Details Date Type Department Care Team (Late st Contact Info) Description 11/25/2024 9:00 AM EDT Procedure visit [facility] Urology at [place] [facility] [address] [facility] [address] [place] [address] Julieta Rogers PA 222 [facility] [address] [place] [address] Retained ureteral stent of transplanted kidney ([facility]-HCC) (Primary Dx) Social History Tobacco Use [...] the past 12 months has th e [employer], [employer], [employer], or [employer] threatened to shut off services in your [...] Label Serial Number Model Flex Uro 1 [id number] Olympus CYF-VHR Flex Uro 2 [id number] Olympus CYF Type V2R Flex Uro 3 3698165 Olympus CYF Type V2R Flex Uro 4 2439721 Olympus CYF Type V2R Flex Uro 5 9111268 Olympus CYF Type V2R Flex Uro 6 0821101 Olympus CYF Type V2R Flex Uro 7 9541217 CYF VHR Flex Uro 8 0053435 CYF VHR Flex Uro 9 4975038 CYF VHR Flex Uro 10 8668544 CYF VHR Flex Uro 11 [id number] CYF VHR Flex Uro 12 6465091 CYF VHR Uro Loaner 12 [id number] CYF VHR Uro Loaner 13 [id number] CYF VHR Uro Loaner 14 [id number] CYF VHR * NAA Merida - 11/25/2024 [...] documented as of this encounter Care Teams Aircraft Body Repairer Relationship Specialty Start Date End Date Enedina Mcguire NP [address] [place] [address] PCP - General Internal Medicine 10/05/24 Maureen Pantoja, RN Txp Post Coordinator Transplant Hepatology 10/28/24 documented as of this encounter
--- OUTSIDE RECORDS SUMMARY | 2024-11-25 10:20 | XMS_ITS | Encounter Summary ---
Author Organization [facility] Address [address] [place] [address] Care Team Providers Care Painter Assistant Name Role Phone Enedina Mcguire NP Primary Care Provider + [phone] Alicia Rankin RN Unavailable Unavail able Source [...] release of HIV test results or diagnoses. [id number] Reason for Visit * Reason Comments Liver Transplant Follow-up Encounter Details Date Type Department Care Team (Late st Contact Info) Description 11/25/2024 10:20 AM EDT Office Visit [facility] Liver Transplant at [address] [place] [address] Lydia Sanchez MD [address] [place] [address] Liver/[place]ney [place] [address] Encounter for therapeutic drug monitoring [...] the past 12 months has th e [employer], [employer], oil, or water company threatened to shut [...] patient continues close f/u w/ transplant furniture shampooer. - Bone health: Vit D level to be drawn ~POD#90. - Labs: Labs (CBC w/ diff, renal panel, liver panel, tacro level) twice a week. Lipid panel, [id number] Vit D level to be drawn at POD#90, HgbA1C and Vit D level to be drawn at POD#180. - Follow up: RTC 2 weeks Trinidad Godinez MD, Fellow, Multiorgan Abdominal Transplant Surgery. [facility]. [1] Allergies Allergen Reactions Adhesive Itching [...] per week. Follow up in 2 weeks. [place] out today. Stop fluconazole, eliquis, and torsemide. [...] therapeutic drug monitoring- Primary S/P liver transplant ([facility]-H[facility]) Hypomagnesemia Disorders of magnesium metabolism Kidney transplant [...] documented as of this encounter Care Teams Painter Assistant Relationship Specialty Start Date End Date Enedina Mcguire NP [address] [place] [address] PCP - General Internal Medicine 10/05/24 Alicia Rankin, ЮЛИЯ Txp Post Coordinator Transplant Hepatology 10/28/24 documented as of this encounter
--- OUTSIDE RECORDS SUMMARY | 2024-11-25 10:50 | XMS_ITS | Encounter Summary ---
Author Organization [facility] Address [address] [place] [address] Care Team Providers Care Electrical Machinist Name Role Phone Enedina Mcguire NP Primary Care Provider + [phone] Maureen Pantoja RN Unavailable Unavail able Source [...] release of HIV test results or diagnoses. [id number] Reason for Visit * Reason Comments Liver Transplant Follow-up Encounter Details Date Type Department Care Team (Late st Contact Info) Description 11/25/2024 10:50 AM EDT Office Visit [facility] Liver Transplant at [place] [address] [address] [place] [address] Leisa Juarez MD [address] [place] [address] 2[address] [place] [address] Seble Colon [facility] [address] [place] [address] NADIYA (acute kidney injury) ([facility]) (Primary Dx); Kidney replaced by transplant; Metabolic [...] the past 12 months has th e [employer], [employer], oil, or water company threatened to shut [...] Hypertension Other hyperlipidemia 07/26/2024 Renal cell carcinoma ([facility]) Thrombocytopenia ([facility]) Thyroid disease Surgical History: Past Surgical History: [...] Stent , Removal of Perihepatic packing; Surgeon: Hravey Domínguez III, MD; Location: OR; Service: Transplant; [...] (07/14/2024) Received from [facility] Solomon Island[place] of Occupational Health - Occupational Stress Questionnaire [...] units lancets (ACCU-CHEK SOFTCLIX LANCETS) [facility] [...] times a day. naloxone (NARCAN) 4 mg/actuation [place] Apply 1 spray in one nostril if [...] Results Component Value Date PTH 36.0 10/25/2024 [id number] 7.1 (L) 10/08/2024 Hemoglobin A1C: Lab Results [...] as of this encounter Care Teams Electrical Machinist Relationship Specialty Start Date End Date Enedina Mcguire NP [address] [place], [place] [phone] PCP - General Internal Medicine 10/05/24 Maureen Pantoja, RN Txp Post Coordinator Transplant Hepatology 10/28/24 documented as of this encounter
--- OUTSIDE RECORDS SUMMARY | 2024-12-04 14:15 | XMS_ITS | Encounter Summary ---
Author Organization [facility] Address [address] [place] [address] Care Team Providers Care Anesthetist Name Role Phone Enedina Mcguire APRN Primary Care Provider + Reason for Visit * Reason Comments Follow-up Neck Pain Med Management Encounter Details Date Type Department Care Team (Late st Contact Info) Description 12/04/2024 2:15 PM EDT Office Visit [facility]GEMENT [address] [address] Dawn Christie PA-C [address] [facility] [address] [place] [address] Cervical radiculopathy (Primary Dx); Long-term use of [...] alcohol) 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 [facility] Utilities Answer Date Recorded In the past 12 months has [employer], gas, oil, or water [employer] threatened to shut off services in [...] Brief Depression Severity Measure Score 0 10/02/2022 [facility] - [...] GED or equivalent No 07/09/2024 Preferred Language Cymro 07/09/2024 PHQ-2 Answer Date Recorded Patient Health [...] 2:15 PM EDT Referring Physician: Enedina Mcguire, BUILDING DRAFTER [address] [place] [address] Primary Physician: Enedina Mcguire APRN CHIEF COMPLAINT [...] has had kidney and liver transplant at [facility] since his last office visit. Additionally, he has been started on Dilaudid 2 mg every 6 hours and gabapentin 100 mg 3 times daily by one of his transplant providers at the [facility]. He was previously prescribed tramadol 50 mg 1 to 2 tablets daily as needed. Patient reports he is following up weekly with his transplant providers at the [facility]. Continues to have some chronic neck pain. [...] Surgeon: Presley Montes De Oca MD; Location: [facility] ENDOSCOPY; Service: Gastroenterology; Laterality: N/A; ENDOSCOPY N/A 07/29/2022 Procedure: ESOPHAGOGASTRODUODENOSCOPY; Surgeon: Presley Montes De Oca MD; Location: [facility] ENDOS[facility]; Service: Gastroenterology; Laterality: N/A; WITH APC [...] 6 hours from transplant providers at the [facility] for postoperative pain for the last 3 [...] provided from his transplant team at the [facility]. Additionally, this did reveal positive THC. Tramadol is a controlled substance and stated [place] and any use of illicit drugs/substances such [...] Referrals: None indicated 9. Records: Kristofer reviewed; [facility] notes reviewed 10. Lifestyle goals: Follow-up 1 month for medication management [facility] Pain Management Dawn Christie PA-C documented in this encounter Plan of Treatment Upcoming Encounters Date Type Department Care Team (Late st Contact Info) Description 04/02/2025 2:15 PM EST Office Visit [facility] PA[facility] 3000 [facility] [address] [place] [address] Dawn Christie PA-C [address] [facility] [address] [place] [address] documented as of this encounter Results * (ABNORMAL) Urine Drug Screen - Urine, Clean Catch (12/04/2024 2:50 PM EDT) THC, Screen, Urine Positive(A) Negative 12/04 8:32 PM EDT [facility] Phencyclidine (PCP), Urine Negative Negative 12/04/2024 8:32 PM EDT [facility] Cocaine Screen, Urine Negative Negative 12/04/2024 8:32 PM EDT [facility] Methamphetamine, Ur Negative Negative 12/04/2024 8:32 PM EDT [facility] Opiate Screen Positive(A) Negative 12/04/2024 8:32 PM EDT [facility] Amphetamine Screen, Urine Negative Negative 12/04/2024 8:32 PM EDT [facility] Benzodiazepine Screen, Urine Negative Negative 12/04/2024 8:32 PM EDT [facility] Tricyclic Antidepressants Screen Negative Negative 12/04/2024 8:32 PM EDT [facility] Methadone Screen, Urine Negative Negative 12/04/2024 8:32 PM EDT [facility] Barbiturates Screen, Urine Negative Negative 12/04/2024 8:32 PM EDT [facility] Oxycodone Screen, Urine Negative Negative 12/04/2024 8:32 PM EDT [facility] Buprenorphine, Screen, Urine Negative Negative 12/04/2024 8:32 PM EDT [facility] Urine Urine specimen obtained by clean catch procedure / Unknown Collection / Unknown 12/04/2024 2:50 PM EDT 12/04/2024 2:54 PM EDT Narrative [facility] - 12/04/2024 8:32 PM EDT [...] Christie PA-C URINE ORDERABLES Final R esult [facility]
[address] [phone] documented in this encounter Visit Diagnoses Diagnosis [...] documented as of this encounter Care Teams Anesthetist Relationship Specialty Start Date End Date Enedina Mcguire APRN [address] [place] [address] PCP - General Nurse Practitioner 10/27/24 documented as of this encounter
--- OUTSIDE RECORDS SUMMARY | 2024-12-04 14:55 | XMS_ITS | Encounter Summary ---
[facility] Address [address] [place] [address] Care Team Providers Care Fish Flipper Name Role Phone Enedina Mcguire APRN Primary Care Provider + Encounter Details Date Type Department Care Team (Late st Contact Info) Description 12/04/2024 2:55 PM EDT Lab [facility] [place] [address] [place] [address] Therapeutic drug monitoring Social History Tobacco Use Types Packs/Day Years Used Date Smoking Tobacco: Former Cigarettes 4 20 Passive Smoke Exposure: Past Smokeless Tobacco: Current Comments:MARIJUANA USE ABOUT 2X PER WEEK - reports no use 08-05-2024 Alcohol Use Standard Drinks/Week Comments Not Currently 0 (1 standard drink = 0.6 oz pure alcohol) 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 [facility] Utilities Answer Date Recorded In the past 12 months has [employer], [employer], oil, or water [employer] threatened to shut off services in your [...] Brief Depression Severity Measure Score 0 10/02/2022 [facility] - Occupational Stress Questionnaire Answer [...] GED or equivalent No 07/09/2024 Preferred Language Malian 07/09/2024 PHQ-2 Answer Date Recorded Patient Health [...] Description 04/02/2025 2:15 PM EST Office Visit [facility] [address] [address] Vazquez Christie PA-C [address] [place] [address] documented as of this encounter Procedures Procedure Name Priority Date/Time Associated Diagnosis Comments URINE DRUG SCREEN Routine 12/04/2024 2:5 0 PM EDT Therapeutic drug monitoring FENTANYL, URINE Routine 12/04/2024 2:50 PM EDT Therapeutic drug monitoring documented in this encounter Results * Fentanyl, Urine - Urine, Clean Catch (12/04/2024 2:50 PM EDT) Fentanyl, Urine Negative Negative 12/04/2024 9:15 PM EDT [facility] Urine Urine specimen obtained by clean catch procedure / Unknown Collection / Unknown 12/04/2024 2:50 PM EDT 12/04/2024 2:54 PM EDT Narrative [facility] - 12/04/2024 9:15 PM EDT [...] Urbanp PA-C URINE ORDERABLES Final R esult [facility]
[address] [place] [address], * (ABNORMAL) Urine Drug Screen - Urine, Clean Catch (12/04/2024 2:50 PM EDT) THC, Screen, Urine Positive(A) Negative 12/04 8:32 PM EDT [facility] Phencyclidine (PCP), Urine Negative Negative 12/04/2024 8:32 PM EDT [facility] Cocaine Screen, Urine Negative Negative 12/04/2024 8:32 PM EDT [facility] Methamphetamine, Ur Negative Negative 12/04/2024 8:32 PM EDT [facility] Opiate Screen Positive(A) Negative 12/04/2024 8:32 PM EDT [facility] Amphetamine Screen, Urine Negative Negative 12/04/2024 8:32 PM EDT [facility] Benzodiazepine Screen, Urine Negative Negative 12/04/2024 8:32 PM EDT [facility] Tricyclic Antidepressants Screen Negative Negative 12/04/2024 8:32 PM EDT [facility] Methadone Screen, Urine Negative Negative 12/04/2024 8:32 PM EDT [facility] Barbiturates Screen, Urine Negative Negative 12/04/2024 8:32 PM EDT [facility] Oxycodone Screen, Urine Negative Negative 12/04/2024 8:32 PM EDT [facility] Buprenorphine, Screen, Urine Negative Negative 12/04/2024 8:32 PM EDT [facility] Urine Urine specimen obtained by clean catch procedure / Unknown Collection / Unknown 12/04/2024 2:50 PM EDT 12/04/2024 2:54 PM EDT Narrative [facility] - 12/04/2024 8:32 PM [...] Otilio JACOME-Lalit URINE ORDERABLES Final R esult [facility]
[address] [place] [address], documented in this encounter Visit Diagnoses Diagnosis Therapeutic drug monitoring Encounter for therapeutic drug monitoring documented in this encounter Additional Health Concerns Assessment Noted Time PHQ-2 Depression Total Score: 1 12/31/19 24 3:25 PM EDT documented as of this encounter Care Teams Fish Flipper Relationship Specialty Start Date End Date Enedina Mcguire APRN [address] [place] [address] PCP - General Nurse Practitioner 10/27/24 documented as of this encounter
--- OUTSIDE RECORDS SUMMARY | 2024-12-09 09:50 | XMS_ITS | Encounter Summary ---
Author Organization [facility] Address [address] [place] [address] Care Team Providers Care Creative Guru Name Role Phone Enedina Mcguire NP Primary Care Provider + [phone] Maureen Pantoja RN Unavailable Unavail able Source [...] release of HIV test results or diagnoses. [id number] Health Encounter Details Date Type Department Care Team (Late st Contact Info) Description 12/09/2024 9:50 AM EDT Office Visit [facility] Liver Transplant at [place] [id number] [place] [address] Leisa Juarez MD [address] [place] [address] 2nd [place] [address] Kidney transplant recipient (Primary Dx); Immunosuppressive management encounter following liver transplant ([facility]); Hypomagnesemia; S/P liver transplant ([facility]); Hypertension, unspecified type; Hyperparathyroidism ([facility]) Social History Tobacco Use Types [...] liver (CMS-HCC) Esophageal varices (CMS-HCC) Hepatorenal syndrome ([facility]) Hypertension Other hyperlipidemia 07/26/2024 Renal cell carcinoma (CMS-HCC) Thrombocytopenia ([facility]) Thyroid disease Surgical History: Past Surgical [...] Strain: Low Risk (07/09/2024) Received from [facility] Overall Financial Resource Strain (CARDIA) Difficulty [...] No Physical Activity: Unknown (07/14/2024) Received from [facility] Exercise Vital Sign Days of Exercise per Week: Patient unable to answer Minutes of Exercise per Session: Not on file Stress: Patient Unable To Answer (07/14/2024) Received from [facility] [place] of Occupational Health - Occupational Stress Questionnaire Feeling of Stress : Patient unable to answer Social Connections: Patient Unable To Answer (07/14/2024) Received from [facility] Social Connection and Isolation Panel [NHANES] [...] times a day. naloxone (NARCAN) 4 mg/actuation [place] Apply 1 spray in one nostril if [...] Results Component Value Date PTH 36.0 10/25/2024 [id number] 7.1 (L) 10/08/2024 Hemoglobin A1C: Lab Results [...] Discussed with Dr. Juarez. Lauren Santos, SAMSON, POLYMER ENGINEER, COMMUNITY RELATIONS LIAISON- Transplant Nephrology [phone] Preferred contact: secure chat The HPI, ROS, [...] Primary Immunosuppressive management encounter following liver transplant ([facility]) Hypomagnesemia Disorders of magnesium metabolism S/P liver transplant ([facility]) Hypertension, unspecified type Hyperparathyroidism ([facility]) Hyperparathyroidism, unspecified documented in this encounter Additional Health Concerns Infection Onset Date Last Indicated Resolved Time 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
--- OUTSIDE RECORDS SUMMARY | 2024-12-09 10:20 | XMS_ITS | Encounter Summary ---
Author Organization [facility] Address [address] [place] [address] Care Team Providers Care Office Auditor Name Role Phone Enedina Mcguire NP Primary Care Provider + [phone] Maureen Pantoja RN Unavailable Unavail able Source [...] release of HIV test results or diagnoses. [id number] Reason for Visit * Reason Comments Liver Transplant Follow-up Encounter Details Date Type Department Care Team (Late st Contact Info) Description 12/09/2024 10:20 AM EDT Office Visit [facility] Liver Transplant at [address] [address] Harvey Domínguez III, MD [address] [place] [address] Encounter for therapeutic drug monitoring (Primary [...] the past 12 months has th e [employer], [employer], oil, or water company threatened to shut [...] Nutrition: patient continues close f/u w/ transplant creative director. - Bone health: Vit D level [...] as of this encounter Care Teams Office Auditor Relationship Specialty Start Date End Date Enedina Mcguire NP [address] [place] [address] PCP - General Internal Medicine 10/05/24 Maureen Pantoja, ЮЛИЯ Txp Post Coordinator Transplant Hepatology 10/28/24 documented as of this encounter
--- OUTSIDE RECORDS SUMMARY | 2024-12-09 11:45 | XMS_ITS | Encounter Summary ---
Author Organization [facility] Address [address] [place] [address] 12698 Care Team Providers Care Electrical Engineering Manager Name Role Phone Enedina Mcguire NP Primary Care Provider + [phone] Maureen Pantoja RN Unavailable Unavail able Source [...] release of HIV test results or diagnoses. [id number] Health Encounter Details Date Type Department Care Team (Late st Contact Info) Description 12/09/2024 11:45 AM EDT Office Visit [facility] Psychiatry Transplant at [place] [address] [phone] Rebekah Linares, [address] [place] [address] Alcohol use disorder (Primary Dx) [...] Recorded In the past 12 months has [employer], gas, oil, or water [employer] threatened to shut off services in [...] as of this encounter Care Teams Electrical Engineering Manager Relationship Specialty Start Date End Date Enedina Mcguire NP [address] [place] [address] PCP - General Internal Medicine 10/05/24 Maureen Pantoja, RN Txp Post Coordinator Transplant Hepatology 10/28/24 documented as of this encounter
--- OUTSIDE RECORDS SUMMARY | 2024-12-18 14:00 | XMS_ITS | Encounter Summary ---
Author Organization [facility] Address [address] [place] [address] Care Team Providers Care Paleontological Helper Name Role Phone Enedina Mcguire NP Primary Care Provider [phone] Maureen Pantoja RN Unavailable Unavail able Source [...] release of HIV test results or diagnoses. [id number] Reason for Visit * Auth/Cert (Routine) Specialty Diagnoses / Procedures Referred By Shane hernadez Referred To Contact Psychiatry [facility] Psychiatry Transplant at [address] [address] Phone: tel: fax: Referral ID Status Reason Start Date Expiration Date Visits Re quested Visits Authorized [id number] 1 1 Encounter Details Date Type Department Care Team (Late st Contact Info) Description 12/18/2024 2:00 PM EDT Office Visit [facility] Psychiatry Transplant at [address] [place] [address] Craig Warren PsyD [address] [facility] [address] [place] [address] Alcohol use disorder (Primary Dx); [...] the past 12 months has th e [employer], [employer], oil, or water [employer] threatened to shut off services in your [...] alcohol and CKD IIIb/IV. Seen by this specifications writer for pre-surgical evaluation. PMH includes PTSD [...] AUD Plan: No follow up with this specifications writer indicated at this time Patient to [...] documented as of this encounter Care Teams Paleontological Helper Relationship Specialty Start Date End Date Enedina Mcguire NP [address] [place] [address] PCP - General Internal Medicine 10/05/24 Maureen Pantoja, ЮЛИЯ Txp Post Coordinator Transplant Hepatology 10/28/24 documented as of this encounter
--- OUTSIDE RECORDS SUMMARY | 2025-01-01 14:15 | XMS_ITS | Encounter Summary ---
Author Organization [facility] Address [address] [place] [address] Care Team Providers Care Recovery Auditor Name Role Phone Enedina Mcguire APRN Primary Care Provider + Reason for Visit * Reason Comments Follow-up Neck Pain Back Pain Encounter Details Date Type Department Care Team (Late st Contact Info) Description 01/01/2025 2:15 PM EDT Office Visit [facility] PAIN MANAGEMENT [address] [phone] Vazquez Christie PA-C 1760 [facility] [address] [place] [address] Cervical radiculopathy (Primary Dx); Long-term use of [...] Recorded In the past 12 months has [employer], gas, oil, or water [employer] threatened to shut off services in your [...] Depression Severity Measure Score 0 10/02/2022 [facility] of Occupat ional Health - [...] liver transplant that took place at the [facility]. Patient does report he has not [...] Surgeon: Presley Montes De Oca MD; Location: [facility] ENDOS[facility]; Service: Gastroenterology; Laterality: N/A; ENDOSCOPY N/A 07/29/2022 Procedure: ESOPHAGOGASTRODUODENOSCOPY; Surgeon: Presley Montes De Oca MD; Location: [facility] ENDOSCOPY; Service: Gastroenterology; Laterality: N/A; WITH APC [...] indicated 9. Records: [facility] reviewed; [facility] notes reviewed 10. Lifestyle goals: Follow-up 3 months [facility] Pain Management Vazquez Christie PA-C documented in this encounter Plan of Treatment Upcoming Encounters Date Type Department Care Team (Late st Contact Info) Description 04/02/2025 2:15 PM EST Office Visit [facility] PAIN MANAGEMENT [address] [address] Vazquez Christie PA-C [address] [address] documented as of this encounter [...] documented as of this encounter Care Teams Recovery Auditor Relationship Specialty Start Date End Date Enedina Mcguire APRN [address] [place] [address] PCP - General Nurse Practitioner 10/27/24 documented as of this encounter
--- OUTSIDE RECORDS SUMMARY | 2025-01-06 08:20 | XMS_ITS | Encounter Summary ---
Author Organization [facility] Address [address] [place] [address] Care Team Providers Care Mushroom Spawn Maker Name Role Phone Enedina Mcguire NP Primary Care Provider + [phone] Maureen Pantoja RN Unavailable Unavail able Source [...] release of HIV test results or diagnoses. [id number] Reason for Visit * Reason Comments Liver Transplant Follow-up Encounter Details Date Type Department Care Team (Late st Contact Info) Description 01/06/2025 8:20 AM EDT Office Visit [facility] Liver Transplant at [address] [address] Cosmo Pacheco MD [address] [place] [address] Liver/[place] [address] Mahad Alonzo MD [facility] [place] [address] S/P liver transplant (CMS-HCC) (Primary [...] the past 12 months has th e [employer] gas, oil, or water company threatened to [...] Nutrition: patient continues close f/u w/ transplant brim plater. - Bone health: Vit D level to be drawn ~POD#90. - Labs: Labs (CBC w/ diff, renal panel, liver panel, tacro level) weekly. Lipid panel, HgbA1C and Vit D level to be drawn at POD#90, HgbA1C and Vit D level to be drawn at POD#180. - Follow up: RTC 1 month Mahad Alonzo MD Transplant Surgery [phone] [1] Allergies Allergen Reactions Adhesive Itching and [...] Confirmation, B Lab Routine S/P liver transplant ([facility]) Immunosuppression ([facility]) Kidney transplant recipient Alcohol use disorder weekly for 67 Occurrences starting 01/06/2025 until 07/21/2025 documented as of this encounter Visit Diagnoses Diagnosis S/P liver transplant ([facility])- Primary Immunosuppression ([facility]) Kidney transplant recipient Alcohol use disorder documented in this encounter Additional Health Concerns Infection Onset Date Last Indicated Resolved Time 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
--- OUTSIDE RECORDS SUMMARY | 2025-01-06 09:30 | XMS_ITS | Encounter Summary ---
Author Organization [facility] Address [facility] [place] [address] Care Team Providers Care Appliances Sample Maker Name Role Phone Enedina Mcguire NP Primary Care Provider + [phone] Maureen Pantoja RN Unavailable Unavail able Source [...] release of HIV test results or diagnoses. [id number] Health Encounter Details Date Type Department Care Team (Late st Contact Info) Description 01/06/2025 9:30 AM EDT Office Visit [facility] Liver Transplant at [place] [address] [place] [address] Leisa Juarez MD [address] [place] [address] 2nd [place] [address] Kidney transplant recipient (Primary Dx); [...] (CMS-HCC) Esophageal varices (CMS-HCC) Hepatorenal syndrome ([facility]) Hypertension Other hyperlipidemia 07/26/2024 Renal [...] Low Risk (07/09/2024) Received from [facility] Overall Financial Resource Strain (CARDIA) Difficulty of [...] Physical Activity: Unknown (07/14/2024) Received from [facility] Exercise Vital Sign Days of Exercise per Week: Patient unable to answer Minutes of Exercise per Session: Not on file Stress: Patient Unable To Answer (07/14/2024) Received from [facility] [place] of Occupational Health - Occupational Stress Questionnaire Feeling of Stress : Patient unable to answer Social Connections: Patient Unable To Answer (07/14/2024) Received from [facility] Social Connection and Isolation Panel [NHANES] [...] Results Component Value Date PTH 36.0 10/25/2024 [id number] 7.1 (L) 10/08/2024 Hemoglobin A1C: Lab Results [...] Discussed with Dr. Juarez. Lauren Santos, SAMSON, TRIM SAWYER, INFORMATION TECH- Transplant Nephrology [phone] Preferred contact: secure chat The HPI, ROS, [...] documented as of this encounter Care Teams Appliances Sample Maker Relationship Specialty Start Date End Date Enedina Mcguire NP [address] [place] [address] PCP - General Internal Medicine 10/05/24 Maureen Pantoja, RN Txp Post Coordinator Transplant Hepatology 10/28/24 documented as of this encounter
--- OUTSIDE RECORDS SUMMARY | 2025-01-14 10:49 | XMS_ITS | Encounter Summary ---
Author Organization [facility] Address [address] [place] [address] Care Team Providers Care Roofing Applicator Name Role Phone Enedina Mcguire NP Primary Care Provider + [phone] Maureen Pantoja RN Unavailable Unavail able Source [...] release of HIV test results or diagnoses. [id number] Reason for Visit * Reason Comments Medication Refill Refill Request 1st A ttempt Encounter Details Date Type Department Care Team (Late st Contact Info) Description 10/21/2024 Refill [facility] Gastroenterology at [facility] Office [address] [place] [phone] Gerri Peterson MD [address] [place] [address] Social History Tobacco Use Types Packs/Day Years Used Date Smoking Tobacco: Former Cigarettes Smokeless Tobacco: Current Alcohol Use Standard Drinks/Week Comments Yes 0 (1 standard drink = 0.6 oz pure alcohol) History of alcohol abuse, reports no use in 3 week- typically endorses use as 4 glasses of wine a days Utilities Answer Date Recorded In the past 12 months has [employer], gas, oil, or water [employer] threatened to shut off services in your [...] documented as of this encounter Care Teams Roofing Applicator Relationship Specialty Start Date End Date Enedina Mcguire NP [address] [place] [address] PCP - General Internal Medicine 10/05/24 Maureen Pantoja, ЮЛИЯ Txp Post Coordinator Transplant Hepatology 10/28/24 documented as of this encounter
--- OUTSIDE RECORDS SUMMARY | 2025-01-14 10:49 | XMS_ITS | Encounter Summary ---
Author Organization [facility] Address [address] [place] [address] Care Team Providers Care Tool Builder Name Role Phone Enedina Mcguire NP Primary Care Provider + [phone] Maureen Pantoja RN Unavailable Unavail able Source [...] release of HIV test results or diagnoses. [id number] Health Encounter Details Date Type Department Care Team (Late st Contact Info) Description 12/03/2024 Chart Note [facility] Liver Transplant at [address] [place] [phone] Marlene Ro MA Social History Tobacco Use [...] Recorded In the past 12 months has [employer], gas, oil, or water [employer] threatened to shut off services in your [...] 5.0 g/dL Blood Narrative Resulting Agency Comment [facility] Result [facility] Provider LAB BLOOD ORDERABLES Denisse l Result * Creatinine, urine, random (12/02/2024 8:01 AM EDT) Creatinine, Urine 48 Urine Narrative Resulting Agency Comment [facility] Result [facility] Provider URINE ORDERABLES Final Re sult * Urinalysis w/Rfl to Microscopic (12/02/2024 8:01 AM EDT) Glucose, UA Negative Negative Ketones, UA Negative Negative Blood, UA Negative Negative Bilirubin, UA Negative Negative Urobilinogen, UA Normal Normal Protein, UA Negative Negative Leukocyte Esterase, UA Negative Negative pH, UA 6.0 4.5 - 8.0 Specific [place], UA 1.010 1.005 - 1.030 Clarity, UA Clear Clear Color, UA Yellow Light Yellow, Yellow Urine Narrative Resulting Agency Comment [facility] Result [facility] Provider URINE ORDERABLES Final Re sult * [...] 6.0 10^3/mL Blood Narrative Resulting Agency Comment [facility] Provider LAB BLOOD ORDERABLES Denisse l Result * Urine Protein, Tot, Random (w/o Creat) (12/02/2024 8:01 AM EDT) Total Protein, Ur 10.0 Urine Narrative Resulting Agency Comment [facility] Result [facility] Provider URINE ORDERABLES Final Re sult * (ABNORMAL) Hepatic Function Panel (12/02/2024 8:01 AM EDT) Bilirubin, Direct 0.5 Bilirubin, Indirect 0.2 Alkaline Phosphatase 109 U/L ALT 16 U/L AST 15 U/L Total Bilirubin 0.7 0.1 - 1.4 mg/dL Total Protein 6.0(A) 6.4 - 8.2 g/dL Plasma Narrative Resulting Agency Comment [facility] Result [facility] Provider LAB BLOOD ORDERABLES Denisse l Result documented in this encounter Visit Diagnoses Not on filedocumented in this encounter Additional Health Concerns Infection Onset Date Last Indicated Resolved Time 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
--- OUTSIDE RECORDS SUMMARY | 2025-01-14 10:49 | XMS_ITS | Encounter Summary ---
Author Organization [facility] Address [address] [place] [address] Care Team Providers Care Building Wrecker Name Role Phone Enedina Mcguire NP Primary Care Provider + [phone] Maureen Pantoja RN Unavailable Unavail able Source [...] release of HIV test results or diagnoses. [id number] Reason for Visit * Reason Comments Results Encounter Details Date Type Department Care Team (Riky st Contact Info) Description 11/27/2024 Telephone [facility] Liver Transplant at [address] [phone] Maureen Pantoja, RN Results Social [...] In the past 12 months has e [employer], gas, oil, or water [employer] threatened to shut off services in your [...] Date End Date Enedina Mcguire NP [address] [place] [address] PCP - General Internal Medicine 10/05/24 Maureen Pantoja, ЮЛИЯ Txp Post Coordinator Transplant Hepatology 10/28/24 documented as of this encounter
--- OUTSIDE RECORDS SUMMARY | 2025-01-14 10:49 | XMS_ITS | Encounter Summary ---
Author Organization [facility] Address [address] [place] [address] Care Team Providers Care Leather Case Finisher Name Role Phone Enedina Mcguire NP Primary Care Provider + [phone] Maureen Pantoja RN Unavailable Unavail able Source [...] release of HIV test results or diagnoses. [id number] Health Encounter Details Date Type Department Care Team (Late st Contact Info) Description 12/01/2024 Telephone [facility] Liver Transplant at [address] [place] [phone] Gladis Chisholm MA Social History Tobacco [...] Recorded In the past 12 months has [employer], gas, oil, or water [employer] threatened to shut off services in [...] have tried to fax his orders through [employer] but was unsuccessful. The plan is to send him a copy via but wanted confirmation that he had a way to print them out. * Gladis Chisholm MA - 12/01/2024 3:08 PM EDT Pt called to request that an order for a urinalysis be put in for him to get done at [facility]. Please advise. documented in this encounter [...] as of this encounter Care Teams Leather Case Finisher Relationship Specialty Start Date End Date Enedina Mcguire NP [address] [place] [address] PCP - General Internal Medicine 10/05/24 Maureen Pantoja, RN Txp Post Coordinator Transplant Hepatology 10/28/24 documented as of this encounter
--- OUTSIDE RECORDS SUMMARY | 2025-01-14 10:49 | XMS_ITS | Encounter Summary ---
Author Organization [facility] Address [address] [place] [address] Care Team Providers Care Women Specialist Name Role Phone Enedina Mcguire NP Primary Care Provider + [phone] Maureen Pantoja RN Unavailable Unavail able Source [...] release of HIV test results or diagnoses. [id number] Health Encounter Details Date Type Department Care Team (Late st Contact Info) Description 11/27/2024 Chart Note [facility] Liver Transplant at [address] [place] [phone] Marlene Ro MA FK Pending 11/27 Labs [...] In the past 12 months has e [employer], gas, oil, or water [employer] threatened to shut off services in your [...] Narrative Resulting Agency Comment [facility] Result [facility] Provider LAB BLOOD ORDERABLES Denisse l Result * Protime-INR (11/27/2024 7:50 AM EDT) Pathologist [facility] INR 0.93 0.9 - 1.1 Plasma Narrative Resulting Agency Comment [facility] Result [facility] Provider LAB BLOOD ORDERABLES Denisse l Result * (ABNORMAL) CBC and differential (11/27/2024 7:50 AM EDT) [facility] Hemoglobin 10.2(A) 13.5 - 17.5 g/dL Hematocrit [...] 6.6 10^3/mL Blood Narrative Resulting Agency Comment [facility] Result [facility] Provider LAB BLOOD ORDERABLES Denisse l Result * Hepatic Function Panel (11/27/2024 7:50 AM EDT) Pathologist [facility] Bilirubin, Direct 0.4 Bilirubin, Indirect 0.1 Alkaline [...] documented as of this encounter Care Teams Women Specialist Relationship Specialty Start Date End Date Enedina Mcguire NP [address] [place] [address] PCP - General Internal Medicine 10/05/24 Maureen Pantoja, RN Txp Post Coordinator Transplant Hepatology 10/28/24 documented as of this encounter
--- OUTSIDE RECORDS SUMMARY | 2025-01-14 10:49 | XMS_ITS | Encounter Summary ---
Author Organization [facility] Address [address] [place] [address] Care Team Providers Care Poke In Name Role Phone Enedina Mcguire NP Primary Care Provider + [phone] Alicia Rankin RN Unavailable Unavail able Source [...] release of HIV test results or diagnoses. [id number] Health Encounter Details Date Type Department Care Team (Late st Contact Info) Description 12/02/2024 Telephone [facility] Liver Transplant at [address] [phone] Mitzy Gill MA Social History [...] In the past 12 months has e [employer], gas, oil, or water company threatened to [...] advised he is almost out of FK. [facility] is working on getting an overnight shipment out to Pt but needs to confirm dosing on script. Sharda also brought the Pt on the line with us. I confirmed we have a prescription that was written on 11/25/24 but it was sent to [facility], not [facility]. Pt states he would like it re-routed to [facility] so they can get this out to him. I advised Pt and Sharda that I would have prescription updated and routed to [facility]. No further needs atthis time. documented [...] documented as of this encounter Care Teams Poke In Relationship Specialty Start Date End Date Enedina Mcguire NP [address] [place] [address] PCP - General Internal Medicine 10/05/24 Alicia Rankin, ЮЛИЯ Txp Post Coordinator Transplant Hepatology 10/28/24 documented as of this encounter
--- OUTSIDE RECORDS SUMMARY | 2025-01-14 10:51 | XMS_ITS | Encounter Summary ---
Author Organization [facility] Address [address] [place] [address] Care Team Providers Care Comb Winder Name Role Phone Enedina Mcguire NP Primary Care Provider + [phone] Maureen Pantoja RN Unavailable Unavail able Source [...] release of HIV test results or diagnoses. [id number] Reason for Visit * Reason Comments Medication Refill Refill Request 1st A ttempt Encounter Details Date Type Department Care Team (Late st Contact Info) Description 10/20/2024 Refill [facility] Gastroenterology at [facility] Office [address] [place] [phone] Gerri Peterson MD [address] [place] [address] Social History Tobacco Use Types Packs/Day Years Used Date Smoking Tobacco: Former Cigarettes Smokeless Tobacco: Current Alcohol Use Standard Drinks/Week Comments Yes 0 (1 standard drink = 0.6 oz pure alcohol) History of alcohol abuse, reports no use in 3 week- typically endorses use as 4 glasses of wine a days Utilities Answer Date Recorded In the past 12 months has [employer], gas, oil, or water [employer] threatened to shut off services in your [...] need filled today. PHARMACY & PHONE #: [facility] [address] [place], [place] [address] [address] DATE OF LAST APPT: 09/02/2024 Gerri Peterson [...] documented as of this encounter Care Teams Comb Winder Relationship Specialty Start Date End Date Enedina Mcguire NP [address] [place] [address] PCP - General Internal Medicine 10/05/24 Maureen Pantoja, RN Txp Post Coordinator Transplant Hepatology 10/28/24 documented as of this encounter
--- OUTSIDE RECORDS SUMMARY | 2025-01-14 10:51 | XMS_ITS | Encounter Summary ---
Author Organization [facility] Address [address] [place] [address] Care Team Providers Care Accounting Clerk Name Role Phone Enedina Mcguire NP Primary Care Provider + [phone] Maureen Pantoja RN Unavailable Unavail able Source [...] release of HIV test results or diagnoses. [id number] Health Encounter Details Date Type Department Care Team (Late st Contact Info) Description 11/25/2024 Social Work [facility] Liver Transplant at [address] [place] [phone] Kaylin Willard MSW Social History Tobacco Use [...] Recorded In the past 12 months has [employer] gas, oil, or water [employer] threatened to shut off services in your [...] AM 09/29/2024 11:00 AM 11/25/2024 3:00 PM [id number] Score MAGALYS-7 Total Score 17 13 4 Scores are not concerning for depression/anxiety. No further SW needs identified. 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
--- OUTSIDE RECORDS SUMMARY | 2025-01-14 10:51 | XMS_ITS | Encounter Summary ---
Author Organization [facility] Address [address] [place] [address] Care Team Providers Care Business Controller Name Role Phone Enedina Mcguire NP Primary Care Provider + [phone] Maureen Pantoja RN Unavailable Unavail able Source [...] release of HIV test results or diagnoses. [id number] Reason for Visit * Reason Comments Results Encounter Details Date Type Department Care Team (Riky st Contact Info) Description 11/21/2024 Telephone [facility] Liver Transplant at [address] [phone] Maureen Pantoja, RN Results Social [...] In the past 12 months has e [employer], gas, oil, or water [employer] threatened to shut off services in your [...] as of this encounter Care Teams Business Controller Relationship Specialty Start Date End Date Enedina Mcguire NP [address] [place] [address] PCP - General Internal Medicine 10/05/24 Maureen Pantoja, RN Txp Post Coordinator Transplant Hepatology 10/28/24 documented as of this encounter
--- OUTSIDE RECORDS SUMMARY | 2025-01-14 10:51 | XMS_ITS | Encounter Summary ---
Author Organization [facility] Address [address] [place] [address] Care Team Providers Care Ultimate Hoops Scoreboard Operator Name Role Phone Enedina Mcguire NP Primary Care Provider + [phone] Maureen Pantoja RN Unavailable Unavail able Source [...] release of HIV test results or diagnoses. [id number] Health Encounter Details Date Type Department Care Team (Late st Contact Info) Description 12/04/2024 Chart Note [facility] Liver Transplant at [address] [place] [phone] Marlene Ro MA FK Pending-12/04 Social History [...] In the past 12 months has e [employer], gas, oil, or water [employer] threatened to shut off services in your [...] Tacrolimus level (12/04/2024 7:47 AM EDT) Pathologist [facility] Tacrolimus Lvl 7.5 6 - 15 ng/mL Whole Blood Narrative Resulting Agency Comment [facility] Historical Provider LAB BLOOD ORDERABLES Denisse l Result * (ABNORMAL) Magnesium (12/04/2024 7:47 AM EDT) Pathologist [facility] Magnesium 1.2(A) 1.6 - 2.4 mg/dL Plasma [...] Resulting Agency Comment [facility] Result [facility] MD LAB BLOOD ORDERABLES Denisse l Result * Protime-INR (12/04/2024 7:47 AM EDT) [facility] INR 0.99 0.9 - 1.1 Plasma Narrative Resulting Agency Comment [facility] Result [facility] LAB BLOOD ORDERABLES Denisse l Result * (ABNORMAL) CBC and differential (12/04/2024 7:47 AM EDT) [facility] Hemoglobin 10.7(A) 13.5 - 17.5 g/dL [...] Resulting Agency Comment [facility] Result [facility] LAB BLOOD ORDERABLES Denisse l Result * (ABNORMAL) Hepatic Function Panel (12/04/2024 7:47 AM EDT) [facility] Bilirubin, Direct 0.5 Bilirubin, Indirect 0.2 [...] documented as of this encounter Care Teams Ultimate Hoops Scoreboard Operator Relationship Specialty Start Date End Date Enedina Mcguire NP [address] [place], [place] [id number] PCP - General Internal Medicine 10/05/24 Maureen Pantoja, ЮЛИЯ Txp Post Coordinator Transplant Hepatology 10/28/24 documented as of this encounter
--- OUTSIDE RECORDS SUMMARY | 2025-01-14 10:51 | XMS_ITS | Encounter Summary ---
Author Organization [facility] Address [address] [place] [address] Care Team Providers Care Glass Lined Tank Repairer Name Role Phone Enedina Mcguire NP Primary Care Provider + [phone] Maureen Pantoja RN Unavailable Unavail able Source [...] release of HIV test results or diagnoses. [id number] Health Encounter Details Date Type Department Care Team (Late st Contact Info) Description 12/04/2024 Telephone [facility] Liver Transplant at [address] [place] [phone] Kaylin Willard MSW Social History Tobacco [...] In the past 12 months has [employer], gas, oil, or water [employer] threatened to shut off services in your [...] No 10/29/2024 Housing Stability Vital Sign Answer Obb e [...] prior to transplant and completed treatment with [facility]. SW called and spoke to [...] meets with a counselor weekly and an MANUFACTURING ENGINEER SUPERVISOR. He has spoke with his MANUFACTURING ENGINEER SUPERVISOR and is interested in Naltrexone to help reduce cravings. He will require a letter from our teamto confirm he is able to take Naltrexone, SW to coordinate with RN coordinator. SW reviewed concerns for alcohol use post-transplant and patient was aware and agreeable. Patient to meet with MEREDITH and transplant CD counselor at next clinic appointment for additional support/follow-up. 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
--- OUTSIDE RECORDS SUMMARY | 2025-01-14 10:51 | XMS_ITS | Encounter Summary ---
Author Organization [facility] Address [address] [place] [address] Care Team Providers Care Hotel Breakfast Attendant Name Role Phone Enedina Mcguire NP Primary Care Provider + [phone] Maureen Pantoja RN Unavailable Unavail able Source [...] release of HIV test results or diagnoses. [id number] Health Encounter Details Date Type Department Care Team (Late st Contact Info) Description 11/21/2024 Orders Only [facility]rology at [facility] [address] [facility] [address] [place] [address] Vasile Gordillo MA Social History [...] Recorded In the past 12 months has [employer], gas, oil, or water [employer] threatened to shut off services in your [...] as of this encounter Care Teams Hotel Breakfast Attendant Relationship Specialty Start Date End Date Enedina Mcguire NP [address] [place] [address] PCP - General Internal Medicine 10/05/24 Maureen Pantoja, ЮЛИЯ Txp Post Coordinator Transplant Hepatology 10/28/24 documented as of this encounter
--- OUTSIDE RECORDS SUMMARY | 2025-01-14 10:51 | XMS_ITS | Encounter Summary ---
Author Organization [facility] Address [address] [place] [address] Care Team Providers Care Strategic Account Executive Name Role Phone Enedina Mcguire NP Primary Care Provider + [phone] Maureen Pantoja RN Unavailable Unavail able Source [...] release of HIV test results or diagnoses. [id number] Health Encounter Details Date Type Department Care Team (Late st Contact Info) Description 11/24/2024 Orders Only [facility] Liver Transplant at [address] [place] [address] Maureen Pantoja, RN Social History Tobacco Use [...] Recorded In the past 12 months has [employer], gas, oil, or water [email or web address] threatened to shut off services in your [...] as of this encounter Care Teams Strategic Account Executive Relationship Specialty Start Date End Date Enedina Mcguire NP [address] [place] [address] PCP - General Internal Medicine 10/05/24 Maureen Pantoja, ЮЛИЯ Txp Post Coordinator Transplant Hepatology 10/28/24 documented as of this encounter
--- OUTSIDE RECORDS SUMMARY | 2025-01-14 10:51 | XMS_ITS | Encounter Summary ---
Author Organization [facility] Address [address] [place] [address] Care Team Providers Care Package Reinspector Name Role Phone Enedina Mcguire NP Primary Care Provider + [phone] Maureen Pantoja RN Unavailable Unavail able Source [...] release of HIV test results or diagnoses. [id number] Health Encounter Details Date Type Department Care Team (Late st Contact Info) Description 12/04/[address] [facility] Liver Transplant at [address] [place] [phone] Marlene Ro MA Social History Tobacco [...] Recorded In the past 12 months has [employer], gas, oil, or water [employer] threatened to shut off services in your [...] I transferred the call andadvised pt to [facility] if no answer. He called [...] documented as of this encounter Care Teams Package Reinspector Relationship Specialty Start Date End Date Enedina Mcguire NP [address] [place] [address] PCP - General Internal Medicine 10/05/24 Maureen Pantoja, RN Txp Post Coordinator Transplant Hepatology 10/28/24 documented as of this encounter
--- OUTSIDE RECORDS SUMMARY | 2025-01-14 10:51 | XMS_ITS | Encounter Summary ---
Author Organization [facility] Address [address] [place] [address] Care Team Providers Care Energy Analyst Name Role Phone Enedina Mcguire NP Primary Care Provider + [phone] Maureen Pantoja RN Unavailable Unavail able Source [...] release of HIV test results or diagnoses. [id number] Reason for Visit * Reason Comments Results Encounter Details Date Type Department Care Team (Riky st Contact Info) Description 12/04/2024 Telephone [facility] Liver Transplant at [address] [phone] Maureen Pantoja, RN Results [...] In the past 12 months has e [employer], gas, oil, or water [employer] threatened to shut off services in your [...] 7.5 Patient to repeat labs tomorrow at [facility] Lab prior to Liver and [...] as of this encounter Care Teams Energy Analyst Relationship Specialty Start Date End Date Enedina Mcguire NP [address] [place] [address] PCP - General Internal Medicine 10/05/24 Maureen Pantoja, RN Txp Post Coordinator Transplant Hepatology 10/28/24 documented as of this encounter
--- OUTSIDE RECORDS SUMMARY | 2025-01-14 10:52 | XMS_ITS | Encounter Summary ---
Author Organization [facility] Address [address] [place] [address] Care Team Providers Care Submarine Advisory Team Watch Officer Name Role Phone Enedina Mcguire APRN Primary Care Provider + Reason for Visit * Reason Comments Med Refill Encounter Details Date Type Department Care Team (Late st Contact Info) Description 09/12/2022 Refill [facility] GASTROENTEROLOGY [address] [facility] [address] [place] [address] Lj Tapia APRN [address] [place] [address] Social History Tobacco Use Types Packs/Day Years [...] or training? Not on file Preferred Language Kenyan 07/03/2022 Sex and Gender Information Value Date Recorded Sex Assigned at Male 08/20/2024 8:28 PM EDT Legal Sex Male 7:45 AM EDT Gender Identity Not on file Sexual Orientation Not on file documented as of this encounter Plan of Treatment Upcoming Encounters Date Type Department Care Team (Late st Contact Info) Description 04/02/2025 2:15 PM EST Office Visit [facility] PAIN [facility]NAGEMENT [address] [address] Vazquez Christie PA-C [address] [place] [address] documented as of this encounter Visit Diagnoses Not on filedocumented in this encounter Care Teams Submarine Advisory Team Watch Officer Relationship Specialty Start Date End Date Enedina Mcguire APRN [address] [place] [address] PCP - General Nurse Practitioner 10/27/24 documented as of this encounter
--- OUTSIDE RECORDS SUMMARY | 2025-01-14 10:52 | XMS_ITS | Encounter Summary ---
Author Organization [facility] Address [address] [place] [address] Care Team Providers Care Manager Core Name Role Phone Enedina Mcguire APRN Primary Care Provider + Reason for Visit * Reason Comments Med Refill Encounter Details Date Type Department Care Team (Late st Contact Info) Description 07/20/2022 Refill [facility] GASTR[facility] [address] [facility] [address] [place] [address] Lj Tapia APRN [address] [place] [address] Secondary esophageal varices without bleeding Social History [...] or training? Not on file Preferred Language Nigerian 07/03/2022 Sex and Gender Information Value Date Recorded Sex Assigned at Male 08/20/2024 8:28 PM EDT Legal Sex Male 7:45 AM EDT Gender Identity Not on file Sexual Orientation Not on file documented as of this encounter Plan of Treatment Upcoming Encounters Date Type Department Care Team (Late st Contact Info) Description 04/02/2025 2:15 PM EST Office Visit [facility] PAIN [facility]NAGEMENT [address] [address] Vazquez Christie PA-C [address] [place] [address] documented as of this encounter Visit Diagnoses Diagnosis Secondary esophageal varices without bleeding documented in this encounter Additional Health Concerns Infection Onset Date Last Indicated Resolved Time COVID Screen (preop/placement) 07/28/2022 07/28/2022 07/29/2022 12:00 AM EDT documented as of this encounter Care Teams Manager Core Relationship Specialty Start Date End Date Enedina Mcguire APRN [address] [place] [address] PCP - General Nurse Practitioner 10/27/24 documented as of this encounter
--- OUTSIDE RECORDS SUMMARY | 2025-01-14 10:52 | XMS_ITS | Encounter Summary ---
Author Organization [facility] Address [address] [place] [address] Care Team Providers Care Water Technician Name Role Phone Enedina Mcguire NP Primary Care Provider + [phone] Maureen Pantoja RN Unavailable Unavail able Source [...] release of HIV test results or diagnoses. [id number] Health Encounter Details Date Type Department Care Team (Late st Contact Info) Description 01/05/2025 Chart Note [facility] Liver Transplant at [address] [place] [phone] Marlene Ro MA 01/05 Labs entered from [facility] Social History Tobacco Use Types Packs/Day Years Used Date Smoking Tobacco: Former Cigarettes Smokeless Tobacco: Current Alcohol Use Standard Drinks/Week Comments Yes 0 (1 standard drink = 0.6 oz pure alcohol) History of alcohol abuse, reports no use in 3 week- typically endorses use as 4 glasses of wine a days Utilities Answer Date Recorded In the past 12 months has e [employer], gas, oil, or water [email or web address] threatened to shut off services in your [...] were not included. 01/05 Labs entered from [facility] documented in this encounter Plan of Treatment [...] PCR, Blood (01/05/2025 9:27 AM EDT) Pathologist [facility] BK Virus Quant PCR PL Negative Plasma Result [facility] LAB BLOOD ORDERABLES Denisse l Result * Urine culture (01/05/2025 9:27 AM EDT) Pathologist [facility] Urine Culture, Comprehensive no growth URINE SPECIMEN / Unknown Result [facility] MICROBIOLOGY - GENERAL OR DERABLES Final Result * (ABNORMAL) Magnesium (01/05/2025 9:27 AM EDT) [facility] Magnesium 1.0(A) 1.6 - 2.4 mg/dL Plasma Narrative Resulting Agency Comment Kev Downey Result [facility] LAB BLOOD ORDERABLES Denisse l Result * (ABNORMAL) Renal Function Panel w/o EGFR (01/05/2025 9:27 AM EDT) [facility] Glucose 98 BUN 19 CO2 29(A) 13 - 22 mmol/L Creatinine 1.10 Potassium 4.0 Sodium 140 Chloride 101 Phosphorus 5.4(A) 2.5 - 4.9 mg/dL Calcium 9.7 EGFR 89 mg/dL Albumin 4.8 3.5 - 5.0 g/dL Blood Narrative Resulting Agency Comment Kev Downey Result [facility] LAB BLOOD ORDERABLES Denisse l Result * Creatinine, urine, random (01/05/2025 9:27 AM EDT) Pathologist [facility] Creatinine, Urine 80 Urine Narrative Resulting Agency Comment Kev [facility] Result [facility] URINE ORDERABLES Final Re sult * Urinalysis w/Rfl to Microscopic (01/05/2025 9:27 AM EDT) Pathologist [facility] Glucose, UA Negative Negative Ketones, UA Negative Negative Blood, UA Negative Negative Bilirubin, UA Negative Negative Urobilinogen, UA Normal Normal Protein, UA Negative Negative Nitrite, UA Negative Negative pH, UA 6.0 4.5 - 8.0 Specific [place], UA 1.015 1.005 - 1.030 Clarity, UA Clear Clear Color, UA Yellow Light Yellow, Yellow Urine Narrative Resulting Agency Comment [facility] Result [facility] Provider URINE ORDERABLES Final Re sult * (ABNORMAL) CBC and differential (01/05/2025 9:27 AM EDT) [facility] Hemoglobin 11.9(A) 13.5 - 17.5 g/dL [...] 10^3/mL Blood Narrative Resulting Agency Comment Kev [facility] Result [facility] Provider LAB BLOOD ORDERABLES Denisse l Result * Urine Protein, Tot, Random (w/o Creat) (01/05/2025 9:27 AM EDT) [facility] Total Protein, Ur 21.0 Urine Narrative Resulting Agency Comment [facility] Result [facility] Provider URINE ORDERABLES Final Re sult [...] as of this encounter Care Teams Water Technician Relationship Specialty Start Date End Date Enedina Mcguire NP [address] [place] [address] PCP - General Internal Medicine 10/05/24 Maureen Pantoja, ЮЛИЯ Txp Post Coordinator Transplant Hepatology 10/28/24 documented as of this encounter
--- OUTSIDE RECORDS SUMMARY | 2025-01-14 10:52 | XMS_ITS | Encounter Summary ---
Author Organization [facility] Address [address] [place] [address] Care Team Providers Care Housekeeping/Laundry Name Role Phone Enedina Mcguire APRN Primary Care Provider + Encounter Details Date Type Department Care Team ([facility] st Contact Info) Description 10/07/2024 Results Follow-Up [facility] INTERNAL MEDICINE [address] [place] [address] Enedina Mcguire APRN [address] [place], [place] [id number] Social History Tobacco Use Types Packs/Day Years Used Date Smoking Tobacco: Former Cigarettes 4 20 Passive Smoke Exposure: Past Smokeless Tobacco: Current Comments:MARIJUANA USE ABOUT 2X PER WEEK - reports no use 08-05-2024 Alcohol Use Standard Drinks/Week Comments Not Currently 0 (1 standard drink = 0.6 oz pure alcohol) 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 [facility] Utilities Answer Date Recorded In the past 12 months has [employer], oil, or water [employer] threatened to shut off services in [...] Brief Depression Severity Measure Score 0 10/02/2022 [facility] - [...] GED or equivalent No 07/09/2024 Preferred Language Micronesian 07/09/2024 PHQ-2 Answer Date Recorded Patient Health [...] [facility] [address] [phone] Vazquez Christie PA-C [address] [place] [address] documented as of this encounter Visit Diagnoses Not on filedocumented in this encounter Additional Health Concerns Assessment Noted Time PHQ-2 Depression Total Score: 1 12/31/19 24 3:25 PM EDT documented as of this encounter Care Teams Housekeeping/Laundry Relationship Specialty Start Date End Date Enedina Mcguire APRN [address] [place] [address] PCP - General Nurse Practitioner 10/27/24 documented as of this encounter
--- OUTSIDE RECORDS SUMMARY | 2025-01-14 10:52 | XMS_ITS | Encounter Summary ---
Author Organization [facility] Address [address] [place] [address] Care Team Providers Care Cost Accounting Analyst Name Role Phone Enedina Mcguire NP Primary Care Provider + [phone] Maureen Pantoja RN Unavailable Unavail able Source [...] release of HIV test results or diagnoses. [id number] Reason for Visit * Reason Comments Critical Lab Results Encounter Details Date Type Department Care Team (Late st Contact Info) Description 01/05/2025 Telephone [facility] Liver Transplant at [address] [place] [phone] Marisela Martinez MA Critical Lab Results [...] In the past 12 months has e [employer], gas, oil, or water [employer] threatened to shut off services [...] - 01/05/2025 11:15 AM EDT Lizeth from [facility] called to report a critical Magnesium [...] documented as of this encounter Care Teams Cost Accounting Analyst Relationship Specialty Start Date End Date Enedina Mcguire NP [address] [place] [address] PCP - General Internal Medicine 10/05/24 Maureen Pantoja, RN Txp Post Coordinator Transplant Hepatology 10/28/24 documented as of this encounter
--- OUTSIDE RECORDS SUMMARY | 2025-01-14 10:52 | XMS_ITS | Encounter Summary ---
Author Organization [facility] Address [address] [place] [address] Care Team Providers Care Clinical Registered Nurse Name Role Phone Enedina Mcguire NP Primary Care Provider + [phone] Maureen Pantoja RN Unavailable Unavail able Source [...] release of HIV test results or diagnoses. [id number] Reason for Visit * Reason Comments Results Encounter Details Date Type Department Care Team (Riky st Contact Info) Description 01/08/2025 Telephone [facility] Liver Transplant at [address] [address] Maureen Pantoja, RN Results Social [...] In the past 12 months has e [employer] gas, oil, or water [employer] threatened to shut off services in your [...] as of this encounter Care Teams Clinical Registered Nurse Relationship Specialty Start Date End Date Enedina Mcguire NP [address] [place] [address] PCP - General Internal Medicine 10/05/24 Maureen Pantoja RN Txp Post Coordinator Transplant Hepatology 10/28/24 documented as of this encounter
--- OUTSIDE RECORDS SUMMARY | 2025-01-14 10:52 | XMS_ITS | Encounter Summary ---
Author Organization Healthcare Address [address] [place] [address] Care Team Providers Care Chain Puller Name Role Phone Lecompte, Lj Nova APRN Unavailable +[phone] Enedina Mcguire APRN Primary Care Provider + Encounter Details Date Type Department Care Team ([facility] st Contact Info) Description 11/27/2024 Telephone [facility] Nephrology, Bone & Mineral Metabolism [address], [address] [place] [address] Chelsy Villanueva Social History Tobacco [...] often do you attend chur ch or confucianist services? Patient unable to answer 07/14/2024 Do you belong to any clubs o r organizations such as mu-ism groups, unions, fraternal or athletic groups, or [...] Recorded Patient Health Questionnaire-2 Score 2 09/29/2024 [facility] - Occupational Stress Questionnaire Answer [...] drink first t deborah in the morning (EYE-APPLICATION ENGINEER) to steady your nerves or to [...] now s/p transplant can follow with transplant antenna engineer, please cancel appt. documented in this [...] documented as of this encounter Care Teams Chain Puller Relationship Specialty Start Date End Date Enedina Mcguire APRN [address] [place] [address] PCP - General 12/04/22 Lj Tapia APRN [address] [place] [address] Referring Physician Gastroenterology 07/18/22 documented as of this encounter
--- OUTSIDE RECORDS SUMMARY | 2025-01-14 10:52 | XMS_ITS | Encounter Summary ---
[facility] Address [address] [place] [address] Care Team Providers Care Leather Parts Matcher Name Role Phone Enedina Mcguire APRN Primary Care Provider + Encounter Details Date Type Department Care Team ([facility] st Contact Info) Description 10/07/2024 Results Follow-Up [facility] INTERNAL MEDICINE [address] [place] [address] Enedina Mcguire APRN [address] [place], [place] [id number] Social History Tobacco Use Types Packs/Day Years [...] Recorded In the past 12 months has [employer], [employer], oil, or water [employer] threatened to shut off services in [...] Severity Measure Score 0 10/02/2022 [facility] - Occupational [...] Description 04/02/2025 2:15 PM EST Office Visit [facility] PAIN MANAGEMENT [address] [address] Vazquez Christie PA-C [address] [place] [address] documented as of this encounter Visit Diagnoses Not on filedocumented in this encounter Additional Health Concerns Assessment Noted Time PHQ-2 Depression Total Score: 1 12/31/19 24 3:25 PM EDT documented as of this encounter Care Teams Leather Parts Matcher Relationship Specialty Start Date End Date Enedina Mcguire APRN [address] [place] [address] PCP - General Nurse Practitioner 10/27/24 documented as of this encounter
--- OUTSIDE RECORDS SUMMARY | 2025-01-14 10:52 | XMS_ITS | Encounter Summary ---
Author Organization [facility] Address [address] [place] [address] Care Team Providers Care Skein Winding Operator Name Role Phone Enedina Mcguire NP Primary Care Provider + [phone] Maureen Pantoja RN Unavailable Unavail able Source [...] release of HIV test results or diagnoses. [id number] Health Encounter Details Date Type Department Care Team (Late st Contact Info) Description 11/20/2024 Refill [facility] Liver Transplant at [address] [place] [phone] Maureen Pantoja, RN Social History Tobacco Use [...] Recorded In the past 12 months has [employer], gas, oil, or water [employer] threatened to shut off services in your [...] documented as of this encounter Care Teams Skein Winding Operator Relationship Specialty Start Date End Date Enedina Mcguire NP [address] [place] [address] PCP - General Internal Medicine 10/05/24 Maureen Pantoja, ЮЛИЯ Txp Post Coordinator Transplant Hepatology 10/28/24 documented as of this encounter
--- OUTSIDE RECORDS SUMMARY | 2025-01-14 10:52 | XMS_ITS | Encounter Summary ---
Author Organization [facility] Address [address] [place] [address] Care Team Providers Care Ground Transportation Operator Name Role Phone Enedina Mcguire NP Primary Care Provider + [phone] Maureen Pantoja RN Unavailable Unavail able Source [...] release of HIV test results or diagnoses. [id number] Reason for Visit * Reason Comments Results Encounter Details Date Type Department Care Team ([facility] st Contact Info) Description 01/09/[address] [facility] Liver Transplant at [address] [address] Marisela Martinez MA Results Social History Tobacco Use Types Packs/Day Years Used Date Smoking Tobacco: Former Cigarettes Smokeless Tobacco: Current Alcohol Use Standard Drinks/Week Comments Yes 0 (1 standard drink = 0.6 oz pure alcohol) History of alcohol abuse, reports no use in 3 week- typically endorses use as 4 glasses of wine a days Utilities Answer Date Recorded In the past 12 months has e [employer], gas, oil, or water [employer] threatened to shut off services in [...] Notes * Maureen Pantoja RN - 01/09/2025 3:49 PM EDT Lab results from 01/09/25 reviewed. Mag improved to 1.3 (from 1.0). Cr 0.90; BUN 20. LFTs stable. Alk phos 57, AST/ALT 22/13. FK pending. WBC 1.8 (from 2.3) and ANC 1,000 (from 1,200). Current IS: FK 5 mg in AM and 6 mg in PM MMF 500 mg BID Prednisone 5 mg daily (decreased 01/06/25) Will follow-up on pending FK level. * Maureen Pantoja RN - 01/09/2025 1:41 PM EDT WBC of 1.8 (from 2.3). Awaiting hardcopy of results so Txp MA can enter into Meograph and RN Txp Coordinator can review. Patient was asked by Kidney Txp Provider to repeat labs today to check magnesium level. Will await all results. 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
--- OUTSIDE RECORDS SUMMARY | 2025-01-14 10:52 | XMS_ITS | Encounter Summary ---
Author Organization [facility] Address [address] [place] [address] Care Team Providers Care Jalousie Installer Name Role Phone Enedina Mcguire NP Primary Care Provider + [phone] Maureen Pantoja RN Unavailable Unavail able Source [...] release of HIV test results or diagnoses. [id number] Health Encounter Details Date Type Department Care Team (Late st Contact Info) Description 01/06/2025 Social Work [facility] Liver Transplant at [address] [place] [phone] Kaylin Willard MSW Social History Tobacco Use [...] Recorded In the past 12 months has [employer], gas, oil, or water [employer] threatened to shut off services in your [...] to meet with patient today. 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
--- OUTSIDE RECORDS SUMMARY | 2025-01-14 10:52 | XMS_ITS | Encounter Summary ---
Author Organization [facility] Address [address] [place] [address] Care Team Providers Care Food Service Name Role Phone Enedina Mcguire NP Primary Care Provider + [phone] Maureen Pantoja RN Unavailable Unavail able Source [...] release of HIV test results or diagnoses. [id number] Health Encounter Details Date Type Department Care Team (Late st Contact Info) Description 01/09/2025 Chart Note [facility] Liver Transplant at [address] [place] [phone] Marlene Ro MA 01/09 Labs entered from [facility] Social History Tobacco Use Types Packs/Day Years Used Date Smoking Tobacco: Former Cigarettes Smokeless Tobacco: Current Alcohol Use Standard Drinks/Week Comments Yes 0 (1 standard drink = 0.6 oz pure alcohol) History of alcohol abuse, reports no use in 3 week- typically endorses use as 4 glasses of wine a days Utilities Answer Date Recorded In the past 12 months has [employer], gas, oil, or water [employer] threatened to shut off services in your [...] URINE PROTEIN, TOTAL, RANDOM (W/O CREATININE) Routine 01/09/2025 12:23 PM EDT HEPATIC FUNCTION PANEL Routine 01/09/2025 12:23 PM EDT CREATININE, URINE, RANDOM Routine 01/09/2025 12:23 PM EDT URINALYSIS W/RFL TO MICROSCOPIC Routine 01/09/2025 12:23 PM EDT CBC AND DIFFERENTIAL Routine 01/09/2025 12:23 PM EDT MAGNESIUM Routine 01/09/2025 12:23 PM EDT RENAL FUNCTION PANEL W/O EGFR Routine 01/09/2025 12:23 PM EDT URINE CULTURE Routine 01/06/2025 12:23 PM EDT documented in this encounter Results * (ABNORMAL) Magnesium (01/09/2025 12:23 PM EDT) Magnesium 1.3(A) 1.6 - 2.4 mg/dL Plasma Historical Provider LAB BLOOD ORDERABLES Denisse l Result * (ABNORMAL) CBC and differential (01/09/2025 12:23 PM EDT) Hemoglobin 12.4(A) 13.5 - 17.5 g/dL Hematocrit 35.9(A) 41 - 53 % RDW 14.8(A) 11.5 - 14.5 % Lymphocytes Absolute 0.6 / L Monocytes Absolute 0.1 / L Eosinophils Absolute 0.0 / L Basophils Absolute 0.0 / L Neutrophils Relative 57.0 46 - 78 % Lymphocytes Relative 33.5 18 - 52 % Monocytes Relative 5.0 3 - 10 % Eosinophils Relative 1.7 0 - 6 % Basophils Relative 1.7 0 - 3 % Neutrophils Absolute 1.0 / L MCH 32.2 26.0 - 34.0 pg MCHC 34.5 30 - 37 g/dL MCV 93.2 82.0 - 108.0 fL Platelets 114 K/ L RBC 3.85(A) 4.50 - 5.90 10^6/ L WBC 1.8 10^3/mL Blood Narrative Resulting Agency Comment [facility] Result [facility] Provider LAB BLOOD ORDERABLES Denisse l Result * (ABNORMAL) Renal Function Panel w/o EGFR (01/09/2025 12:23 PM EDT) Glucose 108 BUN 20 CO2 23(A) 13 - 22 mmol/L Creatinine 0.90 Potassium 4.3 Sodium 138 Chloride 107 Phosphorus 4.4 2.5 - 4.9 mg/dL Calcium 10.1 EGFR 93 mg/dL Albumin 5.0 3.5 - 5.0 g/dL Blood Narrative Resulting Agency Comment [facility] Result [facility] LAB BLOOD ORDERABLES Denisse l Result * Creatinine, urine, random (01/09/2025 12:23 PM EDT) Pathologist [facility] Creatinine, Urine 66 Urine Narrative Resulting Agency Comment [facility] Result [facility] Provider URINE ORDERABLES Final Re sult * Urinalysis w/Rfl to Microscopic (01/09/2025 12:23 PM EDT) Glucose, UA Negative Negative Ketones, UA Negative Negative Blood, UA Negative Negative Bilirubin, UA Negative Negative Urobilinogen, UA Normal Normal Protein, UA Negative Negative Leukocyte Esterase, UA Negative Negative pH, UA 6.0 4.5 - 8.0 Specific [place], UA 1.020 1.005 - 1.030 Clarity, UA Clear Clear Color, UA Yellow Light Yellow, Yellow Urine Narrative Resulting Agency Comment [facility] Result [facility] Provider URINE ORDERABLES Final Re sult * Urine Protein, Tot, Random (w/o Creat) (01/09/2025 12:23 PM EDT) Total Protein, Ur 15.0 Urine Narrative Resulting Agency Comment [facility] Provider URINE ORDERABLES Final Re sult * Hepatic Function Panel (01/09/2025 12:23 PM EDT) Bilirubin, Direct 0.4 Bilirubin, Indirect 0.6 Alkaline Phosphatase 57 ALT 13 AST 22 Total Bilirubin 1.0 Total Protein 7.3 Plasma Narrative Resulting Agency Comment [facility] Result [facility] Provider LAB BLOOD ORDERABLES Denisse l Result * Urine culture (01/06/2025 12:23 PM EDT) Urine Culture, Comprehensive no growth URINE SPECIMEN / Unknown Result [facility] Provider MICROBIOLOGY - GENERAL OR DERABLES Final Result documented in this encounter Visit Diagnoses Not on filedocumented in this encounter Additional Health Concerns Infection Onset Date Last Indicated Resolved Time 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
--- OUTSIDE RECORDS SUMMARY | 2025-01-14 10:52 | XMS_ITS | Encounter Summary ---
Author Organization [facility] Address [address] [place] [address] Care Team Providers Care Warp Hand Name Role Phone Enedina Mcguire NP Primary Care Provider + [phone] Maureen Pantoja RN Unavailable Unavail able Source [...] release of HIV test results or diagnoses. [id number] Health Encounter Details Date Type Department Care Team (Late st Contact Info) Description 11/21/2024 Chart Note [facility] Liver Transplant at [address] [place] [phone] Marlene Ro MA FK: 11/18 & 11/20 [...] In the past 12 months has [employer], gas, oil, or water [employer] threatened to shut off services in your [...] Resulting Agency Comment [facility] Historical Provider LAB BLOOD ORDERABLES Denisse [...] Resulting Agency Comment [facility] Historical Provider LAB BLOOD ORDERABLES Denisse l Result * Hepatic Function Panel (11/20/2024 8:00 AM EDT) Bilirubin, Direct 0.4 Bilirubin, Indirect 0.1 Alkaline Phosphatase 285 U/L ALT 60 U/L AST 25 U/L Total Bilirubin 0.5 0.1 - 1.4 mg/dL Total Protein 6.4 6.4 - 8.2 g/dL Plasma Narrative Resulting Agency Comment [facility] Result [facility] MD LAB BLOOD ORDERABLES Denisse l Result * Tacrolimus level (11/18/2024 7:45 AM EDT) Pathologist [facility] Tacrolimus Lvl 12.5 6 - 15 ng/mL Whole Blood Result [facility] MD LAB BLOOD ORDERABLES Denisse l Result * (ABNORMAL) Hepatic Function Panel (11/18/2024 7:45 AM EDT) [facility] Bilirubin, Direct 0.5 Bilirubin, Indirect 0.1 Alkaline Phosphatase 189 U/L ALT 41 U/L AST 23 U/L Total Bilirubin 0.6 0.1 - 1.4 mg/dL Total Protein 6.1(A) 6.4 - 8.2 g/dL Plasma Narrative Resulting Agency Comment [facility] Result [facility] LAB BLOOD ORDERABLES Ednisse l Result * (ABNORMAL) Renal Function Panel w/o EGFR (11/18/2024 7:45 AM EDT) [facility] Glucose 100 mg/dL BUN 43(A) 4 [...] Narrative Resulting Agency Comment [facility] Result [facility] MD LAB BLOOD ORDERABLES Denisse l Result * (ABNORMAL) CBC and differential (11/18/2024 7:45 AM EDT) [facility] Hemoglobin 10.2(A) 13.5 - 17.5 g/dL [...] Blood Narrative Resulting Agency Comment [facility] us Historical Provider LAB BLOOD ORDERABLES Denisse l Result documented in this encounter Visit Diagnoses Not on filedocumented in this encounter Additional Health Concerns Infection Onset Date Last Indicated Resolved Time 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
--- OUTSIDE RECORDS SUMMARY | 2025-01-14 10:52 | XMS_ITS | Encounter Summary ---
Author Organization [facility] Address [address] [place] [address] Care Team Providers Care Wound Care Technician Name Role Phone Enedina Mcguire NP Primary Care Provider + [phone] Alicia Rankin RN Unavailable Unavail able Source [...] release of HIV test results or diagnoses. [id number] Reason for Visit * Reason Comments Results Encounter Details Date Type Department Care Team (Riyk st Contact Info) Description 11/26/2024 Telephone [facility] Liver Transplant at [address] [phone] Alicia Rankin, RN Results Social [...] In the past 12 months has e [employer], gas, oil, or water [employer] threatened to shut off services in your [...] encounter Visit Diagnoses Diagnosis S/P liver transplant ([facility])- Primary Alcohol use Other problems related to lifestyle Immunosuppression (CMS-HCC) Kidney transplant recipient documented in this encounter Additional Health Concerns Infection Onset Date Last Indicated 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
--- OUTSIDE RECORDS SUMMARY | 2025-01-14 10:52 | XMS_ITS | Encounter Summary ---
Author Organization [facility] Address [address] [place] [address] Care Team Providers Care Labels Molder Name Role Phone Enedina Mcguire NP Primary Care Provider + [phone] Maureen Pantoja RN Unavailable Unavail able Source [...] release of HIV test results or diagnoses. [id number] Health Encounter Details Date Type Department Care Team (Late st Contact Info) Description 11/20/2024 Refill [facility] Liver Transplant at [address] [place] [phone] Maureen Pantoja, RN Social History Tobacco Use [...] Recorded In the past 12 months has [employer], gas, oil, or water [employer] threatened to shut off services in your [...] documented as of this encounter Care Teams Labels Molder Relationship Specialty Start Date End Date Enedina Mcguire NP [address] [place] [address] PCP - General Internal Medicine 10/05/24 Maureen Pantoja, ЮЛИЯ Txp Post Coordinator Transplant Hepatology 10/28/24 documented as of this encounter
--- OUTSIDE RECORDS SUMMARY | 2025-01-14 10:52 | XMS_ITS | Encounter Summary ---
[facility] Address [address] [place] [address] Care Team Providers Care Direct Marketing Executive Name Role Phone Enedina Mcguire APRN Primary Care Provider + Reason for Visit * Reason Onset Date Comments CALLBACK 10/27/2024 Encounter Details Date Type Department Care Team ([facility] st Contact Info) Description 10/27/2024 Telephone [facility] INTERNAL MEDICINE [address] [place] [address] Enedina Mcguire APRN [address] [place] [address] CALLBACK Social History Tobacco Use [...] Recorded In the past 12 months has [employer], [employer], oil, or water [employer] threatened to shut off services in your [...] Score 0 10/02/2022 [facility] - Occupational Stress Questionnaire Answer [...] GED or equivalent No 07/09/2024 Preferred Language Turkmen 07/09/2024 PHQ-2 Answer Date Recorded Patient Health [...] Relationship: Emergency Contact Best call back number: [phone] What was the call regarding: WOULD LIKE A CALL BACK FROM FRANCESCA MCGUIRE HERSELF. SHE WOULD LIKE TO DISCUSS HER 'S TRANSPLANT LIST STATUS. THEY HAVE SOME GOOD NEWS TO REPORT. documented in this encounter Plan of Treatment Upcoming Encounters Date Type Department Care Team (Late st Contact Info) Description 04/02/2025 2:15 PM EST Office Visit [facility] PAIN [facility]NAGEMENT [address] [facility] [address] [place] [address] Vazquez Christie PA-C [address] [place] [phone] documented as of this encounter Visit Diagnoses Not on filedocumented in this encounter Additional Health Concerns Assessment Noted Time PHQ-2 Depression Total Score: 1 12/31/19 24 3:25 PM EDT documented as of this encounter Care Teams Direct Marketing Executive Relationship Specialty Start Date End Date Enedina Mcguire APRN [address] [place] [address] PCP - General Nurse Practitioner 10/27/24 documented as of this encounter
--- OUTSIDE RECORDS SUMMARY | 2025-01-14 10:52 | XMS_ITS | Encounter Summary ---
Author Organization [facility] Address [address] [place] [address] Care Team Providers Care Digital Program Manager Name Role Phone Enedina Mcguire NP Primary Care Provider + [phone] Maureen Pantoja RN Unavailable Unavail able Source [...] release of HIV test results or diagnoses. [id number] Health Encounter Details Date Type Department Care Team (Late st Contact Info) Description 11/20/2024 Orders Only [facility] at [address] [place] [phone] Maureen Pantoja, ЮЛИЯ S/P liver transplant (CMS-HCC) (Primary Dx); Immunosuppression ([facility]-H[facility]); Viral disease exposure; Alcohol use [...] Recorded In the past 12 months has [employer], gas, oil, or water [employer] threatened to shut off services in [...] Cutoff: 10 ng/mL 11/28/2024 8:24 AM EDT [facility] Comment: Phosphatidylethanol (PEth) homologues result interpretation [...] Cutoff: 10 ng/mL 11/28/2024 8:24 AM EDT [facility] Comment: PEth 16:0/18:2 (PLPEth) Reference ranges are not well established PEth Interpretation Positive. 11/28 8:24 AM T [facility] Comment: ADDITIONAL INFORMATION This report is intended for use in clinical monitoring and management of patients. It is not intended for use in employment-related testing. This test was developed and its performance characteristics determined by [facility] in a manner consistent with CLIA requirements. This test has not been cleared or approved by the U.S. Food and Drug Administration. Test Performed by: [facility] - [address] [address] School Bus Attendant: Kathy Ortiz Ph.D.; CLIA# [id number] Whole Blood 11/25/2024 8:42 AM EDT 11/28/2024 8:24 AM EDT [facility] - 11/28/2024 8:24 AM EDT One time lab order to be collected with next set of standing liver transplant labs. Please fax all results to [phone]. Call critical results to [phone]. Harvey Domínguez III, MD LAB BLOOD ORDERABLE S Final Result Performing Organization Address City/[facility]/ZIP Co de Phone Number [facility] [address]. [address] * HIV-1 RNA, Quantitative, PCR (11/25/2024 8:42 AM EDT) Pathologist [facility] HIV 1 Copies Not Detected copies/mL 11/26/2024 10:57 AM EDT [facility] Comment:Test methodology for HIV-1 RNA quantification is an FDA-approved nucleic acid amplification assay. The Lower Limit of Quantitation (LLoQ) is 20 copies/mL. The linear range is 20- to 10,000,000 copies/mL. The Limit of Detection (LoD) is 13.2 copies/mL. The reference range is Not Detected. HIV [id number] See Note [id number] /mL 11/26/2024 10:57 AM EDT [facility] Comment:HIV-1 RNA not detect ed. Plasma 11/25/2024 8:42 AM EDT 11/25/2024 10:59 AM EDT [facility] - 11/26/2024 10:57 AM EDT One time lab order to be collected with next set of standing liver transplant labs. UNOS requirement. Please fax all results to [phone]. Call critical results to [phone]. Harvey Domínguez III, MD LAB BLOOD ORDERABLE S Final Result Performing Organization Address City/[facility]/ZIP Co de Phone Number [facility] [address] * Hepatitis C RNA, Quantitative PCR (11/25/2024 8:42 AM EDT) Pathologist [facility] Units Not Detected IU/mL 11/27/2024 11:35 AM EDT [facility] Comment:Test methodology for HCV RNA quantification is an FDA-approved nucleic acid amplification assay. The Lower Limit of Quantitation (LLOQ) is 15 IU/mL. The linear range of the assay is 15-100,000,000 IU/mL. The Limit of Detection (LoD) is 12.0 IU/mL for EDTA plasma. The reference range is Not Detected. IU log10 See Note log 10 IU/mL 11/27/2024 11:35 AM EDT [facility] Comment:HCV RNA not detected . Plasma 11/25/2024 8:42 AM EDT 11/25/2024 10:59 AM EDT [facility] - 11/27/2024 11:35 AM EDT One time lab order to be collected with next set of standing liver transplant labs. UNOS requirement. Please fax all results to [phone]. Call critical results to [phone]. Harvey Domínguez III, MD LAB BLOOD ORDERABLE S Final Result [facility] [address] [place] [address], [facility] * Hepatitis B Virus (HBV), PCR, Quant (11/25/2024 8:42 AM EDT) Hep B Viral DNA IU/ML Not Detected IU/mL 11/28/2024 10:09 AM EDT [facility] Comment:Test methodology for HBV DNA quantification is an FDA-approved nucleic acid amplification assay. The lower limit of quantitation (LLOQ) is 10 IU/mL. The linear range of the assay is 10-1,000,000,000 IU/mL. The limit of detection (LoD) for plasma is 2.7 IU/mL. The reference range is Not Detected. log 10 HBV as IU/mL See Note log 10 IU/mL 11/28/2024 10:09 AM EDT [facility] Comment:HBV DNA not detected . Plasma 11/25/2024 8:42 AM EDT 11/25/2024 10:59 AM EDT Narrative [facility] - 11/28/2024 10:09 AM EDT One time lab order to be collected with next set of standing liver transplant labs. UNOS requirement. Please fax all results to [phone]. Call critical results to [phone]. us Harvey Domínguez III, MD LAB BLOOD ORDERABLE S Final Result [facility] [address] [place], [place] [address] documented in this encounter [...] as of this encounter Care Teams Digital Program Manager Relationship Specialty Start Date End Date Enedina Mcguire NP [address] [place] [address] PCP - General Internal Medicine 10/05/24 Maureen Pantoja, RN Txp Post Coordinator Transplant Hepatology 10/28/24 documented as of this encounter
--- OUTSIDE RECORDS SUMMARY | 2025-01-14 10:53 | XMS_ITS | Clinical Summary ---
Author Organization Healthcare Address [address] [place] [address] Care Team Providers Care Line Controller Name Role Phone Lj Tapia Rohini RICKS Unavailable [phone] Enedina Mcguire APRN Primary Care Provider + [...] Nephrology, Bone & Mineral Metabolism [address], [address] [place] [address] Chelsy Villanueva from Last 3 [...] answer 07/14/2024 How often do you attend [facility] or latter day services? Patient unable [...] Recorded Patient Health Questionnaire-2 Score 2 09/[facility]/2024 [facility] - Occupational Stress Questionnaire Answer [...] drink first t deborah in the morning (EYE-POLLS OR SURVEYS INTERVIEWER) to steady your nerves or to get rid of a hangover? 0 07/19/2024 CAGE Questionnaire Score 2 025 Utilities Answer Date Recorded In the past 12 months has th [employer], gas, oil, or water company threatened [...] 2 - 13+ 2-dose series) 10/11/2010 09/13/2010 [id number] Vaccine ( - season) 2024 03/17/2021, 07/25/2020, [...] this topic Medical Devices Implanted Type Area Industrial Furnace Fabricator Device Identifier Shelf Expiration Date Model / Serial / Lot Concerto [place] Coil-07/03/2022 Implanted:06/15 by Timmy Brunner MD (Quantity not on file) Coil Abdomen Description:Multiple Coil Co ncerto Pgla [place] Detach COILS implanted on 07/03/2022 by Timmy Brunner MD at [facility]--info can be found in Care Everywhere for [facility] as of 11/15/23 Dona Coil-07/03/2022 Implanted:06/15 by Timmy Brunner MD (Quantity not on file) Coil Abdomen [employer] Description:Coil Emb Dona 3.7/Implanted: Qty: 1 on 07/03/2022 by Timmy Brunner MD at [facility] Plate Plate N/A: Neck Plug Vasc Anton Emb Amplatzer Implanted:06/15 by Timmy Brunner MD (Quantity not on file) Plug Other Vein / / [id number] Description:Plug Vasc Anton Em b Ampltz .027 [id number] - [id number] Implanted: Qty: 1 on 07/03/2022 by Timmy Brunner MD at [facility] Stent Gastro Panc 5fr 5cm - [id number] Implanted:Qty: 1 on 11/20/2023 by Devang Mcghee RN at [facility] Pancreas [employer]-[id number] 08/13/2026 [id number] / / [id number] Procedures Procedure Name Priority Date/Time Associated Diagnosis [...] ORDERA BLES Final Result Performing Organization Address City/[facility]/ZIP Co de Phone Number [facility] [address] [place] [address] * Hepatitis C Antibody (07/14/2024 4:31 PM EST) Hepatitis C Antibody Negative Negative 07/14/2024 5:27 PM EST [facility] Blood Venous blood specimen / Unknown Venipuncture / Unknown 07/14/2024 4:31 PM EST 07/14/2024 4:54 PM EST Laureano Salinas APRN, DNP LAB BLOOD ORDERA BLES Final Result Performing Organization Address City/[facility] Co de Phone Number [facility] [address] [place] [address] from Last 3 Months or Most Recently Relevant to [place] [address] [facility] [address] [facility] Advance Directives * Full Code (Latest Code Status on File) Date Activated Date Inactivated Comments 07/11/2024 11:04 PM 07/23/2024 6:27 PM Question Answer Comments Patient has decision-making capacity? Yes * Full Code Date Activated Date Inactivated Comments 11/14/2023 10:15 PM 11/27/2023 9:08 PM Question Answer Comments Patient has decision-making capacity? Yes Care Teams Line Controller Relationship Specialty Start Date End Date Enedina Mcguire APRN [address] [place] [address] PCP - General 12/04/22 Lj Tapia APRN [address] [place] [address] Referring Physician Gastroenterology 07/18/22
--- OUTSIDE RECORDS SUMMARY | 2025-01-14 10:53 | XMS_ITS | Encounter Summary ---
Author Organization Healthcare Address [address] [place] [address] Care Team Providers Care Pacu Nurse Name Role Phone Jony Conde MD Primary Care Provider [phone] Lj Tapia LEVEL VIAL INSPECTOR AND TESTER Unavailable [phone] Enedina Mcguire LEVEL VIAL INSPECTOR AND TESTER Primary Care Provider + Nuria Fall PROCESS SAFETY ENGINEER Unavailable Unavaila ble Encounter Details Date Type Department Care Team (Late st Contact Info) Description 07/04/2022 Orders Only External Location [address] [place] [address] Presley Montes De Oca MD [address] [id number] Social History Tobacco Use Types Packs/Day Years [...] on filedocumented in this encounter Care Teams Pacu Nurse Relationship Specialty Start Date End Date Jony Conde MD [address] [place] [address] [address] [place], [place] [phone] PCP - General 07/18/22 12/03/22 Enedina Mcguire APRN [address] [place] [address] PCP - General 12/04/22 Lj Tapia APRN [address] [place] [address] [id number] Referring Physician Gastroenterology 07/18/22 Nuria Fall LPN [facility] TCM Nurse 07/24/24 08/23/24 documented as of this encounter
--- OUTSIDE RECORDS SUMMARY | 2025-01-14 10:53 | XMS_ITS | Encounter Summary ---
Author Organization [facility] Address [address] [place] [address] Care Team Providers Care Garment Presser Name Role Phone Enedina Mcguire NP Primary Care Provider + [phone] Maureen Pantoja RN Unavailable Unavail able Source [...] release of HIV test results or diagnoses. [id number] Reason for Visit * Reason Comments Results Encounter Details Date Type Department Care Team (Riky st Contact Info) Description 12/12/2024 Telephone [facility] Liver Transplant at [address] [address] Maureen Pantoja, RN Results Social [...] In the past 12 months has e [employer], gas, oil, or water [employer] threatened to shut off services in [...] documented as of this encounter Care Teams Garment Presser Relationship Specialty Start Date End Date Enedina Mcguire NP [address] [place] [address] PCP - General Internal Medicine 10/05/24 Maureen Pantoja, RN Txp Post Coordinator Transplant Hepatology 10/28/24 documented as of this encounter
--- OUTSIDE RECORDS SUMMARY | 2025-01-14 10:53 | XMS_ITS | Encounter Summary ---
Author Organization [facility] Address [address] [place] [address] Care Team Providers Care Automobile Tester Name Role Phone Enedina Mcguire APRN Primary Care Provider + Encounter Details Date Type Department Care Team (Late st Contact Info) Description 12/05/2024 Telephone [facility] [address] [place] [address] Vazquez Christie PA-C [address] [place] [address] Social History Tobacco Use Types Packs/Day Years Used Date Smoking Tobacco: Former Cigarettes 4 20 Passive Smoke Exposure: Past Smokeless Tobacco: Current Comments:MARIJUANA USE ABOUT 2X PER WEEK - reports no use 08-05-2024 Alcohol Use Standard Drinks/Week Comments Not Currently 0 (1 standard drink = 0.6 oz pure alcohol) 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 [facility] Utilities Answer Date Recorded In the past 12 months has [employer], [employer], oil, or water [employer] threatened to shut off services in your [...] Brief Depression Severity Measure Score 0 10/02/2022 [facility]ational Stress Questionnaire Answer [...] GED or equivalent No 07/09/2024 Preferred Language Austrian 07/09/2024 PHQ-2 Answer Date Recorded Patient Health [...] Upcoming Encounters Date Type Department Care Team ([facility] st Contact Info) Description 04/02/2025 2:15 PM EST Office Visit [facility] [address] [facility] [address] [place] [address] Vazquez Christie PA-C [address] [facility] [address] [place] [address] documented as of this encounter Visit Diagnoses Not on filedocumented in this encounter Additional Health Concerns Assessment Noted Time PHQ-2 Depression Total Score: 1 12/31/19 24 3:25 PM EDT documented as of this encounter Care Teams Automobile Tester Relationship Specialty Start Date End Date Enedina Mcguire APRN [address] [place] [address] PCP - General Nurse Practitioner 10/27/24 documented as of this encounter
--- OUTSIDE RECORDS SUMMARY | 2025-01-14 10:53 | XMS_ITS | Encounter Summary ---
Author Organization [facility] Address [address] [place] [address] Care Team Providers Care Casting Machine Set Up Operator Name Role Phone Enedina Mcguire APRN [...] alcohol) 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 [facility] Utilities Answer Date Recorded In the past 12 months has [employer], gas, oil, or water [employer] threatened to shut off services in your [...] Brief Depression Severity Measure Score 0 10/02/2022 [facility] Occupat ional Health - Occupational Stress [...] GED or equivalent No 07/09/2024 Preferred Language Tuvaluan 07/09/2024 PHQ-2 Answer Date Recorded Patient Health [...] [facility] [address] [address] Vazquez Christie PA-C [address] [place] [address] documented as of this encounter Visit Diagnoses Not on filedocumented in this encounter Additional Health Concerns Assessment Noted Time PHQ-2 Depression Total Score: 1 12/31/19 24 3:25 PM EDT documented as of this encounter Care Teams Casting Machine Set Up Operator Relationship Specialty Start Date End Date Enedina Mcguire APRN [address] [place] [address] PCP - General Nurse Practitioner 10/27/24 documented as of this encounter
--- OUTSIDE RECORDS SUMMARY | 2025-01-14 10:53 | XMS_ITS | Encounter Summary ---
Author Organization [facility] Address [address] [place] [address] Care Team Providers Care Hadoop Application Developer Name Role Phone Enedina Mcguire NP Primary Care Provider + [phone] Maureen Pantoja RN Unavailable Unavail able Source [...] release of HIV test results or diagnoses. [id number] Health Encounter Details Date Type Department Care Team (Late st Contact Info) Description 11/04/2024 Nutrition [facility]plant at [address] [place] [phone] Ben Weiss, DMITRY Social History Tobacco Use [...] Recorded In the past 12 months has [employer], gas, oil, or water [employer] threatened to shut off services in your [...] times a day. naloxone (NARCAN) 4 mg/actuation Lerna Apply 1 spray in one nostril if [...] documented as of this encounter Care Teams Hadoop Application Developer Relationship Specialty Start Date End Date Enedina Mcguire NP [address] [place] [address] PCP - General Internal Medicine 10/05/24 Maureen Pantoja, RN Txp Post Coordinator Transplant Hepatology 10/28/24 documented as of this encounter
--- OUTSIDE RECORDS SUMMARY | 2025-01-14 10:53 | XMS_ITS | Clinical Summary ---
Author Organization [facility] Address [address] [place] [id number] Care Team Providers Care Lead Nurse Name Role Phone Enedina Mcguire APRN Primary [...] Type Department Care Team Description 01/08/2025 Telephone [facility] PAIN [facility]NAGEMENT [address] [facility] [address] [place] [address] Vazquez Christie PA-C Appointment 01/01/2025 2:15 PM EDT Office Visit [facility]IN [facility]NA[facility] [address] [facility] [address] [place] [address] Vazquez Christie PA-C Cervical radiculopathy (Primary Dx); Long-term use of high-risk medication; Cervical spondylosis without myelopathy; Cervical pain (neck); Therapeutic drug monitoring; Chronic pain syndrome 01/01/2025 Travel 12/12/2024 Refill [facility] [address] [place] [address] Enedina Mcguire APRN Acquired hypothyroidism; Secondary esophageal varices without bleeding 12/05/2024 Telephone [facility] PAIN MANAGEMENT [address] [place] [phone] Vazquez Christie PA-C 12/04/2024 2:55 PM EDT Lab [facility] [place] [address] [facility] [address] [place] [address] Therapeutic drug monitoring 12/04/2024 2:15 PM EDT Office Visit [facility]IN [facility]NA[facility] [address] [facility] [address] [place] [address] Vazquez Christie PA-C Cervical radiculopathy (Primary Dx); Long-term use of high-risk medication; Cervical pain (neck); Cervical spondylosis without myelopathy; Therapeutic drug monitoring; Chronic pain syndrome 12/04/2024 Travel 10/27/2024 Telephone [facility] [address] [place] [address] Enedina Mcguire APRN CALLBACK 10/22/2024 2:15 PM EDT Office Visit [facility] [address] [facility] [address] [place] [phone] Vazquez Christie PA-C Cervical radiculopathy (Primary Dx); Cervical spondylosis without myelopathy; Cervical pain (neck); Long-term use of high-risk medication; Therapeutic drug monitoring 10/22/2024 Travel 10/21/2024 Telephone [facility] [address] [place] [address] Enedina Mcguire APRN New Med Request 10/20/2024 Telephone [facility] [address] [phone] BURGESS - RX REFILL 10/20/2024 Telephone [facility] [address] [place] [address] Enedina Mcguire APRN Med Management 10/20/2024 Refill [facility] [address] [place] [address] Enedina Mcguire APRN Hepatic encephalopathy; Acquired hypothyroidism; Secondary esophageal varices without bleeding 10/17/2024 Telephone [facility] [address] [place] [address] Enedina Mcguire APRN from Last 3 [...] Recorded In the past 12 months has [employer], gas, oil, or water company threatened [...] GED or equivalent No 07/09/2024 Preferred Language Latvian 07/09/2024 PHQ-2 Answer Date Recorded Patient Health [...] EST Office Visit [facility] PAIN MANAGEMENT [address] [place] [address] Vazquez Christie PA-C [address] [facility] [address] [place] [address] Health Maintenance Due Date Last Done Comments [...] 0-49 Discontinued Medical Devices Implanted Type Area Director Of Cardiac Cath Lab Device Identifier Shelf Expiration Date Model / Serial / Lot Coil Concerto Pgla Hel Detach Sys 10mm 30cm - [id number] Implanted:Qty: 1 on 07/03/2022 by Timmy Brunner MD at Implant Left: Vein EV3 A [employer] [id number] / / [id number] Description:Coil is in the s hort gastric vein Coil Concerto Nyl [place] Detach Sys 10mm 30cm - [id number] Implanted:Qty: 1 on 07/03/2022 by Timmy Brunner MD at Implant Left: Vein EV3 A [employer] [id number] / / [id number] Description:Short gastric ve in Coil Concerto Nyl [place] Detach Sys 10mm 30cm - [id number] Implanted:Qty: 1 on 07/03/2022 by Timmy Brunner MD at Implant Left: Vein EV3 A [employer] [id number] / / [id number] Description:Short gasrtic ve in Coil Concerto Nyl [place] Detach Sys 10mm 30cm - [id number] Implanted:Qty: 1 on 07/03/2022 by Timmy Brunner MD at Implant Left: Vein EV3 A [employer] [id number] / / [id number] Description:Short gastric ve in Coil Concerto Nyl [place] Detach Sys 8mm 30cm - [id number] Implanted:Qty: 1 on 07/03/2022 by Timmy Brunner MD at Implant Left: Vein EV3 A [employer] [id number] / / [id number] Description:Short gastric ve in Coil Concerto Nyl [place] Detach Sys 8mm 30cm - [id number] Implanted:Qty: 1 on 07/03/2022 by Timmy Brunner MD at Implant Left: Vein EV3 A [employer] [id number] / / [id number] Description:Short gastric ve in Sys Del Liq Emb Trufill Nbca 1g Vl - [id number] Implanted:Qty: 1 on 07/03/2022 by Timmy Brunner MD at Implant Left: Vein [facility] [id number] / / [id number] Description:Short gastric ve in Plug Vasc Anton Emb Ampltz .027 0ju5h92pt - [id number] Implanted:Qty: 1 on 07/03/2022 by Timmy Brunner MD at Implant Left: Vein [employer] [id number] / / [id number] Description:Coronary vein Coil Concerto Nyl [place] Detach Sys 8mm 30cm - [id number] Implanted:Qty: 1 on 07/03/2022 by Timmy Brunner MD at Implant Left: Vein EV3 [employer] [id number] / / [id number] Description:CORONARY VEIN Gelatin Emb Embocube 5.02mm 50mg Red - [id number] Implanted:Qty: 1 on 07/03/2022 by Timmy Brunner MD at Implant Left: Vein [facility] [id number] / / [id number] Description:SHORT GASTRIC VE IN Coil Emb Dona 3.7/Lp .035in 14cm 12mm - [id number] Implanted:Qty: 1 on 07/03/2022 by Timmy Brunner MD at Implant Left: Vein [employer] [id number] / / [id number] Description:SHORT GASTRIC VE IN Coil Concerto Pgla [place] Detach Sys 12mm 30cm - [id number] Implanted:Qty: 1 on 07/03/2022 by Timmy Brunner MD at Implant Left: Vein EV3 [employer] [id number] / / [id number] Description:Short gastric ve in Coil Concerto Nyl [place] Detach Sys 8mm 30cm - [id number] Implanted:Qty: 1 on 07/03/2022 by Timmy Brunner MD at Implant Left: Vein EV3 [employer] [id number] / / [id number] Description:SHORT GASTRIC VE IN Coil Concerto Nyl [place] Detach Sys 8mm 30cm - [id number] Implanted:Qty: 1 on 07/03/2022 by Timmy Brunner MD at Implant Left: Vein EV3 [employer] [id number] / / [id number] Description:Short gastric ve in Coil Concerto Nyl [place] Detach Sys 8mm 30cm - [id number] Implanted:Qty: 1 on 07/03/2022 by Timmy Brunner MD at Implant Left: Vein EV3 [employer] [id number] / / [id number] Description:Short gastric ve in Coil Concerto Pgla Hel Detach Sys 14mm 40cm - [id number] Implanted:Qty: 1 on 07/03/2022 by Timmy Brunner MD at Implant Left: Vein EV3 [employer] [id number] / / [id number] Description:Short gastric ve in Coil Concerto Pgla Hel Detach Sys 14mm 40cm - [id number] Implanted:Qty: 1 on 07/03/2022 by Timmy Brunner MD at Implant Left: Vein EV3 [employer] [id number] / / [id number] Description:Short gastric ve in Coil Concerto Pgla [place] Detach Sys 14mm 30cm - [id number] Implanted:Qty: 1 on 07/03/2022 by Timmy Brunner MD at Implant Left: Vein [employer]3 [employer] [id number] / / [id number] Description:Short gastric ve in Coil Concerto Pgla [place] Detach Sys 14mm 30cm - [id number] Implanted:Qty: 1 on 07/03/2022 by Timmy Brunner MD at Implant Left: Vein EV3 [employer] [id number] / / [id number] Description:Short gastric ve in Coil Concerto Pgla [place] Detach Sys 14mm 30cm - [id number] Implanted:Qty: 1 on 07/03/2022 by Timmy Brunner MD at Implant Left: Vein EV3 [employer] [id number] / / [id number] Description:Short gastric ve in Procedures Procedure Name [...] the time period is included. Enedina Mcguire DOUBLE END CHUCKING MACHINE OPERATOR LAB BLOOD ORDERABLES Fin al Result * [...] 2:50 PM EDT 12/04/2024 2:54 PM EDT [facility] LABORATORY - 12/04/2024 8:32 PM EDT Cutoff [...] Vazquez JACOME-Lalit URINE ORDERABLES Final R esult [facility]
[address] [place] [address], * Fentanyl, Urine - Urine, Clean Catch (12/04/2024 2:50 PM EDT) Fentanyl, Urine Negative Negative 12/04/2024 9:15 PM EDT [facility] Urine Urine specimen obtained by clean catch procedure / Unknown Collection / Unknown 12/04/2024 2:50 PM EDT 12/04/2024 2:54 PM EDT [facility] - 12/04/2024 9:15 PM EDT Negative [...] Christie PA-C URINE ORDERABLES Final R esult [facility]
[address] [place] [address], * IMAGING SCANNED (10/17/2024) Anatomical Region Laterality Modality Radiographic Rachel ging Enedinanaty Mcguire DOUBLE END CHUCKING MACHINE OPERATOR IMG DIAGNOSTIC IMAGING O RDERABLES Final Result * (ABNORMAL) Lipid Panel (10/15/2023 4:16 PM EDT) Total Cholesterol 234(H) 0 - 200 mg/dL 10/16/2023 2:33 AM EDT [facility] Triglycerides 203(H) 0 - 150 mg/dL 10/16/2023 2:33 AM EDT [facility] HDL Cholesterol 41 40 - 60 mg/dL 10/16/2023 2:33 AM EDT [facility] LDL Cholesterol 156(H) 0 - 100 mg/dL 10/16/2023 2:33 AM EDT [facility] VLDL Cholesterol 37 5 - 40 mg/dL 10/16/2023 2:33 AM EDT [facility] LDL/HDL Ratio 3.72 10/16/2023 2:33 AM EDT [facility] Blood Venipuncture / Unknown 10/15/2023 4:16 PM EDT 10/15/2023 4:16 PM EDT Narrative [facility] - 10/16/2023 2:33 AM EDT [...] APRN LAB BLOOD ORDERABLES Fin al Result [facility]
[address] [place] [address], from Last 3 Months or Most Recently [...] Of Support Discussed With: Patient Care Teams Lead Nurse Relationship Specialty Start Date End Date Enedina Mcguire APRN [address] [place] [address] PCP - General Nurse Practitioner 10/27/24
--- OUTSIDE RECORDS SUMMARY | 2025-01-14 10:53 | XMS_ITS | Encounter Summary ---
Author Organization Healthcare Address [address] [place] [address] Care Team Providers Care Communications Tower Technician Name Role Phone Jony Conde MD Primary Care Provider [phone] Lj Tapia WORKFORCE MANAGER Unavailable [phone] Enedina Mcguire APRN Primary Care Provider + Nuria Fall TECHNOLOGY EDUCATION TEACHER Unavailable Unavaila ble Encounter Details Date Type Department Care Team (Late st Contact Info) Description 07/02/2022 Orders Only External Location [address] [place] [address] Provider, External Social History Tobacco Use Types [...] on filedocumented in this encounter Care Teams Communications Tower Technician Relationship Specialty Start Date End Date Jony Conde MD [address] [facility] [address] [place], [place] [id number] PCP - General 07/18/22 12/03/22 Enedina Mcguire APRN [address] [place] [address] PCP - General 12/04/22 Lj Tapia APRN [address] [place] [address] Referring Physician Gastroenterology 07/18/22 Nuria Fall LPN [facility] TCM Nurse 07/24/24 08/23/24 documented as of this encounter
--- OUTSIDE RECORDS SUMMARY | 2025-01-14 10:53 | XMS_ITS | Encounter Summary ---
Author Organization Healthcare Address [address] [place] [address] Care Team Providers Care Director Revenue Name Role Phone Jony Conde MD Primary Care Provider [phone] Lj Tapia RATTLE LEAK AND SQUEAK REPAIRER Unavailable [phone] Enedina Mcguire RATTLE LEAK AND SQUEAK REPAIRER Primary Care Provider + Nuria Fall PAD EXTRACTOR TENDER Unavailable Unavaila ble Encounter Details Date Type Department Care Team (Late st Contact Info) Description 07/04/2022 Orders Only External Location [address] [place] [address] Presley Montes De Oca MD [address] [place] [id number] Social History Tobacco Use Types Packs/Day Years [...] filedocumented in this encounter Care Teams Director Revenue Relationship Specialty Start Date End Date Jony Conde MD [address] [facility] [address] [place] [address] PCP - General 07/18/22 12/03/22 Enedina Mcguire APRN [address] [place] [address] PCP - General 12/04/22 Lj Tapia APRN [address] [place] [address] Referring Physician Gastroenterology 07/18/22 Nuria Fall LPN [facility] TCM Nurse 07/24/24 08/23/24 documented as of this encounter
--- OUTSIDE RECORDS SUMMARY | 2025-01-14 10:53 | XMS_ITS | Encounter Summary ---
Author Organization Healthcare Address [address] [place] [address] Care Team Providers Care Partner Cco Name Role Phone Jony Conde MD Primary Care Provider [phone] Lj Tapia VENEER MANUFACTURER Unavailable [phone] Enedina Mcguire VENEER MANUFACTURER Primary Care Provider + Nuria Fall SOCIOLOGY FACULTY MEMBER Unavailable Unavaila ble Encounter Details Date Type Department Care Team (Late st Contact Info) Description 07/03/2022 Orders Only External Location [address] [place] [address] Presley Montes De Oca MD [address] [place] [id number] Social History Tobacco Use Types Packs/Day Years [...] on filedocumented in this encounter Care Teams Partner Cco Relationship Specialty Start Date End Date Jony Conde MD [address] [place] [address] [address] [place] [address] PCP - General 07/18/22 12/03/22 Enedina Mcguire APRN [address] [place] [address] PCP - General 12/04/22 Lj Tapia APRN [facility] [place], [place] [id number] Referring Physician Gastroenterology 07/18/22 Nuria Fall LPN [facility] TCM Nurse 07/24/24 08/23/24 documented as of this encounter
--- OUTSIDE RECORDS SUMMARY | 2025-01-14 10:55 | XMS_ITS | Encounter Summary ---
Author Organization [facility] Address [address] [place] [address] Care Team Providers Care Underwriting Operations Manager Name Role Phone Enedina Mcguire APRN Primary Care Provider + Reason for Visit * Reason Onset Date Comments Appointment 01/08/2025 Encounter Details Date Type Department Care Team (Late st Contact Info) Description 01/08/2025 Telephone [facility] [address] [place] [phone] Vazquez Christie PA-C [address] [place] [address] Appointment Social History Tobacco Use Types Packs/Day Years Used Date Smoking Tobacco: Former Cigarettes 4 20 Passive Smoke Exposure: Past Smokeless Tobacco: Current Comments:MARIJUANA USE ABOUT 2X PER WEEK - reports no use 08-05-2024 Alcohol Use Standard Drinks/Week Comments Not Currently 0 (1 standard drink = 0.6 oz pure alcohol) 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 [facility] Utilities Answer Date Recorded In the past 12 months has [employer] [facility], gas, oil, or water [employer] threatened to shut off services in your [...] Measure Score 0 10/02/2022 [facility] of Occupat ional [facility] - Occupational Stress Questionnaire Answer [...] GED or equivalent No 07/09/2024 Preferred Language Kyrgyz 07/09/2024 PHQ-2 Answer Date Recorded Patient Health [...] to patient: Self Best call back number: [phone] Chief complaint: C2/3 and C6/7 Medial branch [...] to patient: Self Best call back number: [phone] Patient is needing: PATIENT IS RETURNING A PHONE CALL TO [facility] - documented in this encounter Plan of Treatment Upcoming Encounters Date Type Department Care Team (Late st Contact Info) Description 04/02/2025 2:15 PM EST Office Visit [facility] PAIN MANAGEMENT [address] [address] Vazquez Christie PA-C [address] [address] documented as of this encounter Visit Diagnoses Not on filedocumented in this encounter Additional Health Concerns Assessment Noted Time PHQ-2 Depression Total Score: 1 12/31/19 24 3:25 PM EDT documented as of this encounter Care Teams Underwriting Operations Manager Relationship Specialty Start Date End Date Enedina Mcguire APRN [address] [place] [address] PCP - General Nurse Practitioner 10/27/24 documented as of this encounter
--- OUTSIDE RECORDS SUMMARY | 2025-01-14 10:55 | XMS_ITS | Encounter Summary ---
Author Organization [facility] Address [address] [place] [address] Care Team Providers Care Blender Machine Operator Name Role Phone Enedina Mcguire NP Primary Care Provider + [phone] Maureen Pantoja RN Unavailable Unavail able Source [...] release of HIV test results or diagnoses. [id number] Health Encounter Details Date Type Department Care Team (Late st Contact Info) Description 12/09/2024 Telephone [facility] Liver Transplant at [address] [place] [phone] Mitzy Gill MA Social History Tobacco [...] In the past 12 months has e [employer], gas, oil, or water company threatened [...] call pharmacy with update. Patient notified via [employer]. * Mitzy Gill MA - 12/10/2024 10:09 [...] I stated we received a call from [facility] stating he picked up a tramadol prescription on 12/05 and there is an issue with him having naltrexone prescribed as well. Per CC ЮЛИЯ Reddy, Pt cannot have naltrexone filled while actively taking tramadol. Spoke to Kirt at [facility] and advised him not to [...] - 12/09/2024 12:41 PM EDT Kirt from [facility] states they received a naltrexone [...] documented as of this encounter Care Teams Blender Machine Operator Relationship Specialty Start Date End Date Enedina Mcguire NP [address] [place] [address] PCP - General Internal Medicine 10/05/24 Maureen Pantoja, ЮЛИЯ Txp Post Coordinator Transplant Hepatology 10/28/24 documented as of this encounter
--- OUTSIDE RECORDS SUMMARY | 2025-01-14 10:55 | XMS_ITS | Encounter Summary ---
Author Organization [facility] Address [address] [place] [address] Care Team Providers Care Material Handling Warehouse Supervisor Name Role Phone Enedina Mcguire APRN [...] Recorded In the past 12 months has [employer], gas, oil, or water [employer] threatened to shut off services in your [...] Brief Depression Severity Measure Score 0 10/02/2022 [facility] of Occupat ional Health - Occupational Stress [...] GED or equivalent No 07/09/2024 Preferred Language Togolese 07/09/2024 PHQ-2 Answer Date Recorded Patient Health [...] Description 04/02/2025 2:15 PM EST Office Visit [facility] PAIN [facility] [address] [address] Vazquez Christie PA-C [address] [place] [address] documented as of this encounter Visit Diagnoses Not on filedocumented in this encounter Additional Health Concerns Assessment Noted Time PHQ-2 Depression Total Score: 1 12/31/19 24 3:25 PM EDT documented as of this encounter Care Teams Material Handling Warehouse Supervisor Relationship Specialty Start Date End Date Enedina Mcguire APRN [address] [place] [address] PCP - General Nurse Practitioner 10/27/24 documented as of this encounter
--- OUTSIDE RECORDS SUMMARY | 2025-01-14 10:55 | XMS_ITS | Encounter Summary ---
Author Organization [facility] Address [address] [place] [address] Care Team Providers Care Printed Circuit Board Panels Trimmer Name Role Phone Enedina Mcguire NP Primary Care Provider [phone] Maureen Pantoja RN Unavailable Unavail able Source [...] release of HIV test results or diagnoses. [id number] Health Encounter Details Date Type Department Care Team (Late st Contact Info) Description 12/09/2024 Chart Note [facility] Liver Transplant at [address] [place] [phone] Marlene Ro MA Social History Tobacco Use [...] Recorded In the past 12 months has [employer], gas, oil, or water [employer] threatened to shut off services in your [...] No growth URINE SPECIMEN / Unknown Result [facility] Provider MICROBIOLOGY - GENERAL OR DERABLES Final Result * (ABNORMAL) Magnesium (12/08/2024 10:43 AM EDT) Pathologist [facility] Magnesium 1.3(A) 1.6 - 2.4 mg/dL Plasma Narrative Resulting Agency Comment [facility] Result [facility] LAB BLOOD ORDERABLES Denisse l Result * (ABNORMAL) Renal Function Panel w/o EGFR (12/08/2024 10:43 AM EDT) Pathologist [facility] Glucose 83 mg/dL BUN 21 4 - [...] 5.0 g/dL Blood Narrative Resulting Agency Comment [facility] Result [facility] LAB BLOOD ORDERABLES Denisse l Result * Creatinine, urine, random (12/08/2024 10:43 AM EDT) [facility] Creatinine, Urine 65 Urine Narrative Resulting Agency Comment [facility] Result [facility] Provider URINE ORDERABLES Final Re sult * Urinalysis w/Rfl to Microscopic (12/08/2024 10:43 AM EDT) Pathologist [facility] Glucose, UA Negative Negative Ketones, UA Negative Negative Blood, UA Negative Negative Bilirubin, UA Negative Negative Urobilinogen, UA Normal Normal Protein, UA Negative Negative Nitrite, UA Negative Negative Leukocyte Esterase, UA Negative Negative pH, UA 6.0 4.5 - 8.0 Specific Macy, UA 1.010 1.005 - 1.030 Clarity, UA Clear Clear Color, UA Yellow Light Yellow, Yellow Urine Narrative Resulting Agency Comment [facility] Result [facility] Provider URINE ORDERABLES Final Re sult * Urine Protein, Tot, Random (w/o Creat) (12/08/2024 10:43 AM EDT) Total Protein, Ur 11.0 Urine Narrative Resulting Agency Comment [facility] Result [facility] Provider URINE ORDERABLES Final Re sult * (ABNORMAL) Hepatic Function Panel (12/08/2024 10:43 AM EDT) Pathologist [facility] Bilirubin, Direct 0.1 Bilirubin, Indirect 0.2 Alkaline Phosphatase 80 U/L ALT 14 U/L AST 16 U/L Total Bilirubin 0.3 0.1 - 1.4 mg/dL Total Protein 5.6(A) 6.4 - 8.2 g/dL Plasma Narrative Resulting Agency Comment [facility] Result [facility] Provider LAB BLOOD ORDERABLES Denisse l Result [...] 5.1 10^3/mL Blood Narrative Resulting Agency Comment [facility] us Historical Provider LAB BLOOD ORDERABLES Denisse l Result documented in this encounter Visit Diagnoses Not on filedocumented in this encounter Additional Health Concerns 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
--- OUTSIDE RECORDS SUMMARY | 2025-01-14 10:55 | XMS_ITS | Encounter Summary ---
Author Organization [facility] Address [address] [place] [address] Care Team Providers Care Data Center Solutions Architect Name Role Phone Enedina Mcguire NP Primary Care Provider + [phone] Maureen Pantoja RN Unavailable Unavail able Source [...] release of HIV test results or diagnoses. [id number] Health Encounter Details Date Type Department Care Team (Late st Contact Info) Description 12/09/2024 Orders Only [facility] Liver Transplant at [address] [place] [address] Maureen Pantoja, RN Social History Tobacco Use [...] Recorded In the past 12 months has [employer], gas, oil, or water [employer] threatened to shut off services in your [...] as of this encounter Care Teams Data Center Solutions Architect Relationship Specialty Start Date End Date Enedina Mcguire NP [address] [place] [address] PCP - General Internal Medicine 10/05/24 Maureen Pantoja, ЮЛИЯ Txp Post Coordinator Transplant Hepatology 10/28/24 documented as of this encounter
--- OUTSIDE RECORDS SUMMARY | 2025-01-14 10:55 | XMS_ITS | Encounter Summary ---
Author Organization [facility] Address [address] [place] [address] Care Team Providers Care Metal Ceiling Builder Name Role Phone Enedina Mcguire NP Primary Care Provider + [phone] Maureen Pantoja RN Unavailable Unavail able Source [...] release of HIV test results or diagnoses. [id number] Reason for Referral * Diagnostic Lab (Routine) - New Request Specialty Diagnoses / Procedures Referred By Shane hernadez Referred To Contact Diagnoses Kidney transplant recipient Liver transplant recipient (CMS-HCC) Viral disease exposure Immunosuppression ([facility]-H[facility]) Procedures BK Virus Quantitative by PCR, Blood [facility] Liver Transplant at [address] [address] Phone: tel: fax: Referral ID Status Reason Start Date Expiration Date V isits Requested Visits Authorized [id number] New Request 12/09/2024 06/07/2025 1 1 * Diagnostic Lab (Routine) - New Request Specialty Diagnoses / Procedures Referred By Contac t Referred To Contact Diagnoses Kidney transplant recipient Liver transplant recipient (CMS-HCC) Viral disease exposure Immunosuppression (CMS-HCC) Procedures BK Virus Quantitative by PCR, Blood [facility] Liver Transplant at [address] [address] Phone: tel: fax: Referral ID Status Reason Start Date Expiration Date V isits Requested Visits Authorized [id number] New Request 12/09/2024 06/07/2025 1 1 * Diagnostic Lab (Routine) - New Request Specialty Diagnoses / Procedures Referred By Contac t Referred To Contact Diagnoses Kidney transplant recipient Liver transplant recipient (CMS-HCC) Viral disease exposure Immunosuppression (CMS-HCC) Procedures BK Virus Quantitative by PCR, Blood [facility] Liver Transplant at [address] [address] Phone: tel: fax: Referral ID Status Reason Start Date Expiration Date V isits Requested Visits Authorized [id number] New Request 12/09/2024 06/07/2025 1 1 * Diagnostic Lab (Routine) - New Request Specialty Diagnoses / Procedures Referred By Contac t Referred To Contact Diagnoses Kidney transplant recipient Liver transplant recipient (CMS-HCC) Viral disease exposure Immunosuppression (CMS-HCC) Procedures BK Virus Quantitative by PCR, Blood [facility] Liver Transplant at [address] [address] Phone: tel: fax: Referral ID Status Reason Start Date Expiration Date V isits Requested Visits Authorized [id number] New Request 12/09/2024 06/07/2025 1 1 Encounter Details Date Type Department Care Team (Late st Contact Info) Description 12/09/2024 Orders Only [facility] Liver Transplant at [address] [place] [address] Maureen Pantoja RN Kidney transplant [...] as 4 glasses of wine a days [employer] Answer Date Recorded In the past 12 months has th e [employer], gas, oil, or water company threatened to [...] Routine Kidney transplant recipient Liver transplant recipient ([facility]-HCC) Viral disease exposure Immunosuppression ([facility]) Expected: 01/27/2025 (Approximate), Expires: 06/11/2026 BK Virus Quantitative by PCR, Blood Lab Routine Kidney transplant recipient Liver transplant recipient ([facility]-H[facility]) Viral disease exposure Immunosuppression (CMS-HCC) Expected: 04/28/2025 (Approximate), Expires: 06/11/2026 BK Virus Quantitative by PCR, Blood Lab Routine Kidney transplant recipient Liver transplant recipient ([facility]) Viral disease exposure Immunosuppression ([facility]) Expected: 07/27/2025 (Approximate), Expires: 06/11/2026 BK Virus Quantitative by PCR, Blood Lab Routine Kidney transplant recipient Liver transplant recipient ([facility]) Viral disease exposure Immunosuppression ([facility]) Expected: 10/27/2025 (Approximate), Expires: 06/11/2026 documented as [...] as of this encounter Care Teams Metal Ceiling Builder Relationship Specialty Start Date End Date Enedina Mcguire NP [address] [place], [place] [id number] PCP - General Internal Medicine 10/05/24 Maureen Pantoja, ЮЛИЯ Txp Post Coordinator Transplant Hepatology 10/28/24 documented as of this encounter
--- OUTSIDE RECORDS SUMMARY | 2025-01-14 10:56 | XMS_ITS | Encounter Summary ---
Author Organization [facility] Address [address] [place] [address] Care Team Providers Care Manuscripts Curator Name Role Phone Enedina Mcguire NP Primary Care Provider + [phone] Maureen Pantoja RN Unavailable Unavail able Source [...] release of HIV test results or diagnoses. [id number] Reason for Visit * Reason Comments Results Encounter Details Date Type Department Care Team (Late st Contact Info) Description 12/29/2024 Telephone [facility] Liver Transplant at [address] [address] Maureen Pantoja, RN Results Social [...] In the past 12 months has e [employer], gas, oil, or water [employer] threatened to shut off services in [...] documented as of this encounter Care Teams Manuscripts Curator Relationship Specialty Start Date End Date Enedina Mcguire NP [address] [place] [address] PCP - General Internal Medicine 10/05/24 Maureen Pantoja, RN Txp Post Coordinator Transplant Hepatology 10/28/24 documented as of this encounter
--- OUTSIDE RECORDS SUMMARY | 2025-01-14 10:56 | XMS_ITS | Encounter Summary ---
Author Organization [facility] Address [address] [place] [address] Care Team Providers Care Tufter Name Role Phone Enedina Mcguire NP Primary Care Provider + [phone] Maureen Pantoja RN Unavailable Unavail able Source [...] release of HIV test results or diagnoses. [id number] Health Encounter Details Date Type Department Care Team (Late st Contact Info) Description 12/18/2024 Refill [facility] Liver Transplant at [address] [place] [phone] Maureen Pantoja, RN Encounter for therapeutic drug monitoring; S/P liver transplant ([facility]-HCC); Hypomagnesemia; Kidney transplant recipient; Hypertension, unspecified [...] Recorded In the past 12 months has [employer], gas, oil, or water [employer] threatened to shut off services in your [...] for therapeutic drug monitoring S/P liver transplant ([facility]) Hypomagnesemia Disorders of magnesium metabolism Kidney transplant recipient Hypertension, unspecified type Gastroesophageal reflux disease, unspecified whether esophagitis present documented in this encounter Additional Health Concerns Infection Onset Date Last Indicated Resolved Time 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
--- OUTSIDE RECORDS SUMMARY | 2025-01-14 10:56 | XMS_ITS | Encounter Summary ---
Author Organization [facility] Address [address] [place] [address] Care Team Providers Care Airbrush Artist Name Role Phone Enedina Mcguire NP Primary Care Provider [phone] aMureen Pantoja RN Unavailable Unavail able Source Comments [...] release of HIV test results or diagnoses. [id number] Reason for Visit * Reason Comments Medication Refill Encounter Details Date Type Department Care Team (Late st Contact Info) Description 12/21/2024 Refill [facility] Liver Transplant at [address] [address] Lydia Sanchez MD [address] [place] [address] Liver[place] [address] Encounter for therapeutic drug monitoring; S/P liver transplant ([facility]); Hypomagnesemia; Kidney transplant recipient; Hypertension, unspecified [...] for therapeutic drug monitoring S/P liver transplant ([facility]) Hypomagnesemia Disorders of magnesium metabolism Kidney transplant recipient Hypertension, unspecified type Gastroesophageal reflux disease, unspecified whether esophagitis present documented in this encounter Additional Health Concerns Infection Onset Date Last Indicated Resolved Time 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
--- OUTSIDE RECORDS SUMMARY | 2025-01-14 10:56 | XMS_ITS | Encounter Summary ---
Author Organization [facility] Address [address] [place] [address] Care Team Providers Care Combination Building Inspector Name Role Phone Enedina Mcguire APRN Primary Care Provider + Reason for Visit * Reason Comments Med Refill Encounter Details Date Type Department Care Team ([facility] st Contact Info) Description 12/12/2024 Refill [facility] INTERNAL MEDICINE [address] [place] [address] Enedina Mcguire APRN [address] [place], [place] [id number] Acquired hypothyroidism; Secondary esophageal varices without bleeding [...] 30 days sober on 08-05-2024 [facility] Utilities Answer Date Recorded In the past 12 months has [employer], gas, oil, or water [employer] threatened to shut off services in your [...] Score 0 10/02/2022 [facility] - Occupational Stress Questionnaire Answer Date [...] GED or equivalent No 07/09/2024 Preferred Language Rwandan 07/09/2024 PHQ-2 Answer Date Recorded Patient Health [...] Description 04/02/2025 2:15 PM EST Office Visit [facility] [address] [address] Vazquez Christie PA-C [address] [place] [address] documented as of this encounter Visit Diagnoses Diagnosis Acquired hypothyroidism Unspecified hypothyroidism Secondary esophageal varices without bleeding documented in this encounter Additional Health Concerns Assessment Noted Time PHQ-2 Depression Total Score: 1 12/31/19 24 3:25 PM EDT documented as of this encounter Care Teams Combination Building Inspector Relationship Specialty Start Date End Date Enedina Mcguire APRN [address] [place] [address] PCP - General Nurse Practitioner 10/27/24 documented as of this encounter
--- OUTSIDE RECORDS SUMMARY | 2025-01-14 10:56 | XMS_ITS | Encounter Summary ---
Author Organization [facility] Address [address] [place] [address] Care Team Providers Care Sprayer Leather Name Role Phone Enedina Mcguire NP Primary Care Provider + [phone] Maureen Pantoja RN Unavailable Unavail able Source [...] release of HIV test results or diagnoses. [id number] Health Encounter Details Date Type Department Care Team (Late st Contact Info) Description 12/23/2024 Chart Note [facility] Liver Transplant at [address] [place] [phone] Maureen Pantoja, conciliation court judge results from 12/23/24 entered from [facility]. Social History Tobacco Use Types Packs/Day Years Used Date Smoking Tobacco: Former Cigarettes Smokeless Tobacco: Current Alcohol Use Standard Drinks/Week Comments Yes 0 (1 standard drink = 0.6 oz pure alcohol) History of alcohol abuse, reports no use in 3 week- typically endorses use as 4 glasses of wine a days Utilities Answer Date Recorded In the past 12 months has [employer], gas, oil, or water [employer] threatened to shut off services in your [...] EDT Lab results from 12/23/24 entered from [facility]. documented in this encounter Plan of Treatment [...] w/o EGFR (12/23/2024 9:53 AM EDT) Pathologist [facility] Glucose 88 BUN 19 CO2 27(A) 13 - 22 mmol/L Creatinine 0.80 Potassium 4.2 Sodium 138 Chloride 105 Phosphorus 5.2(A) 2.5 - 4.9 mg/dL Calcium 9.2 EGFR 107 mg/dL Albumin 4.4 3.5 - 5.0 g/dL Blood us Harvey Domínguez III, MD LAB BLOOD ORDERABLE S Final Result * Protime-INR (12/23/2024 9:53 AM EDT) Pathologist [facility] INR 0.94 0.9 - 1.1 Protime 10.5 Plasma us Harvey Domínguez III, MD LAB BLOOD ORDERABLE S Final Result * (ABNORMAL) CBC and differential (12/23/2024 9:53 AM EDT) Pathologist [facility] Hemoglobin 11.3(A) 13.5 - 17.5 g/dL Hematocrit [...] documented as of this encounter Care Teams Sprayer Leather Relationship Specialty Start Date End Date Enedina Mcguire NP [address] [place] [address] PCP - General Internal Medicine 10/05/24 Maureen Pantoja, ЮЛИЯ Txp Post Coordinator Transplant Hepatology 10/28/24 documented as of this encounter
--- OUTSIDE RECORDS SUMMARY | 2025-01-14 10:56 | XMS_ITS | Encounter Summary ---
Author Organization [facility] Address [address] [place] [address] Care Team Providers Care Dead Mail Checker Name Role Phone Enedina Mcguire NP Primary Care Provider + [phone] Maureen Pantoja RN Unavailable Unavail able Source [...] release of HIV test results or diagnoses. [id number] Health Encounter Details Date Type Department Care Team (Late st Contact Info) Description 12/17/2024 Chart Note [facility] Liver Transplant at [address] [place] [phone] Marlene Ro MA 12/16 Labs entered [facility] Social History Tobacco Use Types Packs/Day Years Used Date Smoking Tobacco: Former Cigarettes Smokeless Tobacco: Current Alcohol Use Standard Drinks/Week Comments Yes 0 (1 standard drink = 0.6 oz pure alcohol) History of alcohol abuse, reports no use in 3 week- typically endorses use as 4 glasses of wine a days Utilities Answer Date Recorded In the past 12 months has e [employer], gas, oil, or water [employer] threatened to shut off services in your [...] 12/17/2024 10:44 AM EDT 12/16 Labs entered [facility] documented in this encounter Plan of [...] 2.4 mg/dL Plasma Narrative Resulting Agency Comment [facility] Historical Provider MD LAB BLOOD ORDERABLES Denisse [...] Resulting Agency Comment [facility] Result [facility] MD LAB BLOOD ORDERABLES Denisse l Result * Protime-INR (12/16/2024 10:05 AM EDT) Pathologist [facility] INR 0.95 0.9 - 1.1 Plasma Narrative Resulting Agency Comment [facility] Result [facility] MD LAB BLOOD ORDERABLES [...] 4.8 10^3/mL Blood Narrative Resulting Agency Comment [facility] Result [facility] MD LAB BLOOD ORDERABLES Denisse l Result * Hepatic Function Panel (12/16/2024 10:05 AM EDT) Bilirubin, Direct 0.2 Bilirubin, Indirect 0.2 Alkaline Phosphatase 73 ALT 15 AST 19 Total Bilirubin 0.4 Total Protein 6.2 Plasma Narrative Resulting Agency Comment [facility] us Historical Provider LAB BLOOD ORDERABLES Denisse l Result documented in this encounter Visit Diagnoses Not on filedocumented in this encounter Additional Health Concerns Infection Onset Date Last Indicated Resolved Time 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
--- OUTSIDE RECORDS SUMMARY | 2025-01-14 10:56 | XMS_ITS | Clinical Summary ---
Author Organization [facility] Address [facility] [place] [address] Care Team Providers Care Precision Dyer Name Role Phone Enedina Mcguire NP Primary Care Provider + [phone] Maureen Pantoja RN Unavailable Unavail able Source [...] therelease of HIV test results or diagnoses. [id number] Allergies Active Allergy Reactions Criticality Noted [...] Encounter for therapeutic drug monitoring,S/P liver transplant ([facility]),Hypomagn esemia,Kidney transplant recipient,Hyperten kevin, unspecified type,Gastroesophag eal reflux disease, unspecified whether esophagitis present Take 3 tablets (975 mg total) by mouth every 8 hours. 200 tablet 025 Active Additional Information Patient taking differently: 650 mgOralEvery 8 hours PRN, Pain, Reported on 01/06/2025 ergocalciferol (ERGOCALCIFEROL) 1,250 mcg (50,000 unit) capsuleIndications :Encounter for therapeutic drug monitoring,S/P liver transplant ([facility]),Hypomagn esemia,Kidney transplant recipient,Hyperten kevin, unspecified type,Gastroesophag eal reflux disease, unspecified whether esophagitis present Take 1 capsule (50,000 Units total) by mouth once a week. 4 capsule 2 Active famotidine (PEPCID) 20 MG tabletIndications: Encounter for therapeutic drug monitoring,S/P liver transplant ([facility]),Hypomagn esemia,Kidney transplant recipient,Hyperten kevin, unspecified type,Gastroesophag eal reflux disease, unspecified whether esophagitis present Take 1 tablet (20 mg total) by mouth 2 times a day. 60 tablet 2 Active sulfamethoxazole-t rimethoprim (BACTRIM) 400-80 mg per tabletIndications: Encounter for therapeutic drug monitoring,S/P liver transplant ([facility]),Hypomagn esemia,Kidney transplant recipient,Hyperten kevin, unspecified type,Gastroesophag eal reflux disease, unspecified whether esophagitis present Take 1 tablet by mouth daily. 30 tablet 2 025 Active gabapentin (NEURONTIN) 100 MG capsuleIndications :Encounter for therapeutic drug monitoring,S/P liver transplant ([facility]),Hypomagn esemia,Kidney transplant recipient,Hyperten kevin, [...] :Encounter for therapeutic drug monitoring,S/P liver transplant ([facility]),Hypomagn esemia,Kidney transplant recipient,Hyperten kevin, unspecified type,Gastroesophag eal reflux disease, unspecified whether esophagitis present Take 2 capsules (500 mg total) by mouth 2 times a day. 120 capsule 5 Active valGANciclovir (VALCYTE) 450 mg tabletIndications: Encounter for therapeutic drug monitoring,S/P liver transplant ([facility]),Hypomagn esemia,Kidney transplant recipient,Hyperten kevin, unspecified type,Gastroesophag eal reflux disease, unspecified whether esophagitis present Take 2 tablets (900 mg total) by mouth daily. 60 tablet Active NIFEdipine (PROCARDIA-XL) 30 MG (OSM) 24 hr tabletIndications: Encounter for therapeutic drug monitoring,S/P liver transplant ([facility]),Hypomagn esemia,Kidney transplant recipient,Hyperten kevin, [...] 90 tablet Active naloxone (NARCAN) 4 mg/actuation [place] Apply 1 [...] Encounter for therapeutic drug monitoring,S/P liver transplant ([facility]),Hypomagn esemia,Kidney transplant recipient,Hyperten kevin, unspecified type,Gastroesophag eal reflux disease, unspecified whether esophagitis present Take 1 tablet (30 mg total) by mouth daily. 30 tablet 025 12/22 Discontinued mycophenolate (CELLCEPT) 250 mg capsuleIndications :Encounter for therapeutic drug monitoring,S/P liver transplant ([facility]),Hypomagn esemia,Kidney transplant recipient,Hyperten kevin, unspecified type,Gastroesophag [...] Encounter for therapeutic drug monitoring,S/P liver transplant ([facility]),Hypomagn esemia,Kidney transplant recipient,Hyperten kevin, unspecified type,Gastroesophag eal [...] with SBP, s/p CTX x5d; will cont superintendent container terminal ppx with Cipro 500mg daily - [...] Encounters Date Type Department Care Team Description 01/09/2025 Chart Note [facility] Liver Transplant at [address] [address] Marlene Ro MA 01/09 Labs entered from [facility] 01/09/2025 Telephone [facility] Liver Transplant at [address] [address] Marisela Martinez MA Results 01/08/2025 Telephone [facility] Transplant at [address] [place] [address] Maureen Pantoja, ЮЛИЯ Results 01/06/2025 9:30 AM EDT Office Visit [facility] Liver Transplant at [address] [address] Leisa Juarez MD Kidney transplant recipient (Primary Dx); Hypomagnesemia; Hyperphosphatemia; Immunosuppression ([facility]-HCC); Viral disease exposure; Hypertension, unspecified type 01/06/2025 8:20 AM EDT Office Visit [facility] Liver Transplant at [address] [place] [address] Cosmo Pacheco MD Paci, Philippe, MD S/P liver transplant (CMS-HCC) (Primary Dx); Immunosuppression (CMS-HCC); Kidney transplant recipient; Alcohol use disorder 01/06/2025 Social Work [facility] Liver Transplant at [address] [place] [address] Madan WillardenzNUBIA moses 01/05/2025 Chart Note [facility] Liver Transplant at [address] [place] [address] Marlene Ro MA 01/05 Labs entered from [facility] 01/05/2025 Telephone [facility] Liver Transplant at [address] [place] [address] Marisela Martinez MA Critical Lab Results 01/05/2025 Telephone [facility] Liver Transplant at [address] [place] [address] Maureen Pantoja, RN Results 12/31/2024 Chart Note [facility] Liver Transplant at [address] [place] [address] Marlene Ro MA 12/31 Labs entered from [facility] 12/29/2024 Telephone [facility] Liver Transplant at [address] [place] [address] Maureen Pantoja, RN Results 12/23/2024 Chart Note [facility] Liver Transplant at [address] [place] [address] Maureen Pantoja, machine hoop maker helper results from 12/23/24 entered from [facility]. 12/22/2024 Telephone [facility] Liver Transplant at [address] [place] [address] Maureen Pantoja, RN Results; Medication Dose Change 12/21/2024 Refill [facility] Liver Transplant at [address] [place] [address] Lydia Sanchez MD Encounter for therapeutic drug monitoring; S/P liver transplant ([facility]); Hypomagnesemia; Kidney transplant recipient; Hypertension, unspecified type; Gastroesophageal reflux disease, unspecified whether esophagitis present 12/18/2024 2:00 PM EDT Office Visit [facility] Psychiatry Transplant at [address] [place] [address] Lizeth Warren PsyD Alcohol use disorder (Primary Dx); PTSD (post-traumatic stress disorder) 12/18/2024 Refill [facility] Liver Transplant at [address] [address] Maureen Pantoja, ЮЛИЯ Encounter for therapeutic drug monitoring; S/P liver transplant ([facility]); Hypomagnesemia; Kidney transplant recipient; Hypertension, unspecified type; Gastroesophageal reflux disease, unspecified whether esophagitis present 12/17/2024 Chart Note [facility] Liver Transplant at [address] [address] Marlene Ro MA 12/16 Labs entered [facility] 12/12/2024 Telephone [facility] Liver Transplant at [address] [place] [address] Maureen Pantoja, RN Results 12/09/2024 11:45 AM EDT Office Visit [facility] Psychiatry Transplant at [address] [place] [address] Rebekah Linares LICDC Alcohol use disorder (Primary Dx) 12/09/2024 10:20 AM EDT Office Visit [facility] Liver Transplant at [address] [place] [address] Harvey Domínguez III, MD Encounter for therapeutic drug monitoring (Primary Dx); S/P liver transplant ([facility]); Hypomagnesemia; Kidney transplant recipient; Hypertension, unspecified type; Gastroesophageal reflux disease, unspecified whether esophagitis present 12/09/2024 9:50 AM EDT Office Visit [facility] Liver Transplant at [address] [address] Leisa Juarez MD Kidney transplant recipient (Primary Dx); Immunosuppressive management encounter following liver transplant ([facility]); Hypomagnesemia; S/P liver transplant ([facility]); Hypertension, unspecified type; Hyperparathyroidism ([facility]) 12/09/2024 Social Work [facility] Liver Transplant at [address] [address] Kaylin Willard MSW 12/09/2024 Orders Only [facility] Liver Transplant at [address] [address] Maureen Pantoja, ЮЛИЯ 12/09/2024 Orders Only [facility] Liver Transplant at [address] [address] Maureen Pantoja, RN Kidney transplant recipient (Primary Dx); Liver transplant recipient ([facility]); Viral disease exposure; Immunosuppression ([facility]) 12/09/2024 Telephone [facility] Liver Transplant at [address] [address] Mitzy Rojas MA 12/09/2024 Chart Note [facility] Liver Transplant at [address] [address] Marlene Ro MA 12/04/2024 Telephone [facility] Liver Transplant at [address] [address] Maureen Pantoja, RN Results 12/04/2024 Chart Note [facility] Transplant at [address] [place] [address] Marlene Ro MA FK Pending-12/0412/04/2024 Telephone [facility] Transplant at [address] [place] [address] Kaylin Willard MSW 12/04/2024 Telephone [facility] Transplant at [address] [place] [address] Marlene Ro MA 12/03/2024 Chart Note [facility] Transplant at [address] [phone] Marlene Ro MA 12/02/2024 Telephone [facility] Transplant at [address] [place] [address] Mitzy Rojas MA 12/01/2024 Telephone [facility] Transplant at [address] [place] [address] Gladis Chisholm MA 11/27/2024 Telephone [facility] Transplant at [address] [place] [address] Maureen Pantoja, RN Results 11/27/2024 Chart Note [facility] Transplant at [address] [place] [address] Marlene Ro MA FK Pending 11/27 Labs 11/26/2024 Telephone [facility] Transplant at [address] [place] [phone] 87 Maureen Pantoja, RN Results 11/25/2024 10:50 AM EDT Office Visit [facility] Liver Transplant at [address] [place] [address] Leisa Juarez MD Kaur, Taranpreet NADIYA (acute kidney injury) ([facility]CC) (Primary Dx); Kidney replaced by transplant; Metabolic acidosis; Hypervolemia associated with renal insufficiency 11/25/2024 10:20 AM EDT Office Visit [facility] Liver Transplant at [address] [place] [address] Lydia Sanchez MD Encounter for therapeutic drug monitoring (Primary Dx); S/P liver transplant ([facility]-HCC); Hypomagnesemia; Kidney transplant recipient; Hypertension, unspecified type; Gastroesophageal reflux disease, unspecified whether esophagitis present; Abdominal pain, unspecified abdominal location 11/25/2024 9:00 AM EDT Procedure visit [facility] at [facility] [address] [facility] [address] [place] [phone] Julieta Rogers PA Retained ureteral stent of transplanted kidney ([facility]-HCC) (Primary Dx) 11/25/2024 Social Work [facility] Transplant at [address] [place] [address] Kaylin Willard MSW 11/24/2024 Orders Only [facility] Liver Transplant at [address] [place] [address] Maureen Pantoja, RN 11/21/2024 Orders Only [facility] at [facility] [address] [facility] [address] [place] [address] Vasile Gordillo MA 11/21/2024 Telephone [facility] Transplant at [address] [place] [address] Maureen Pantoja, RN Results 11/21/2024 Chart Note [facility] Transplant at [address] [place] [address] Marlene Ro MA FK: 11/18 & 11/20 Pending 11/20/2024 Refill [facility] Transplant at [address] [place] [address] Maureen Pantoja, RN 11/20/2024 Refill [facility] Transplant at [address] [address] Maureen Pantoja, ЮЛИЯ 11/20/2024 Orders Only [facility] Liver Transplant at [address] [address] Maureen Pantoja, RN S/P liver transplant (CMS-HCC) (Primary Dx); Immunosuppression (CMS-HCC); Viral disease exposure; Alcohol use 11/18/2024 Telephone [facility] Liver Transplant at [address] [address] Maureen Pantoja, RN Results 11/18/2024 Chart Note [facility] Transplant at [address] [place] [address] Marlene Ro MA 11/11/2024 10:30 AM EDT Office Visit [facility] Liver Transplant at [address] [address] Unknown, Attending Provider Jessica Colon Kidney replaced by transplant (Primary Dx); Hypervolemia associated with renal insufficiency 11/11/2024 10:00 AM EDT Office Visit [facility] Liver Transplant at [address] [place] [address] Cosmo Pacheco MD Quillin, Ralph Cutler III, MD Encounter for therapeutic drug monitoring (Primary Dx); Abdominal pain, unspecified abdominal location 11/11/2024 9:30 AM EDT Office Visit [facility] Psychiatry Transplant at [address] [address] Lizeth Warren PsyD PTSD (post-traumatic stress disorder) (Primary Dx) 11/11/2024 8:50 AM EDT [facility] [address] [place] [address] Harvey Domínguez III, MD Liver replaced by transplant ([facility]); Immunosuppressive management encounter following liver transplant ([facility]); Kidney transplant recipient 11/11/2024 Telephone [facility] Liver Transplant at [address] [address] Maureen Pantoja, RN Results 11/10/2024 Orders Only [facility] Liver Transplant at [address] [address] Maureen Pantoja, RN Liver transplant recipient ([facility]) (Primary Dx); Kidney transplant recipient; Immunosuppressive management encounter following liver transplant ([facility]) 11/10/2024 Orders Only [facility] Liver Transplant at [address] [address] Maureen Pantoja, RN 11/09/2024 Telephone [facility] [address] [place] [address] Unknown, Attending Provider After Hours Call (Passing blood through stool states started this morning has had 3 bloody bowel movements kidney and liver txp done 2 weeks ago) 11/07/2024 Telephone [facility] Liver Transplant at [address] [address] Marlene Ro MA 11/07/2024 Telephone [facility] Liver Transplant at [address] [place] [address] Maureen Pantoja, RN Results 11/07/2024 Chart Note [facility] Transplant at [address] [place] [address] Marlene Ro MA FK Pending 11/04/2024 10:10 AM EDT Office Visit [facility] Liver Transplant at [address] [place] [address] Leisa Juarez MD Kidney transplant recipient (Primary Dx); Diarrhea of presumed infectious origin; Hypomagnesemia; Hypervolemia, unspecified hypervolemia type; Liver transplant recipient (CMS-HCC); Other hypervolemia; Hyperparathyroidism (CMS-HCC); Nausea and vomiting, unspecified vomiting type 11/04/2024 8:40 AM EDT Office Visit [facility] Liver Transplant at [address] [place] [address] Cosmo Pacheco MD Liver transplant recipient (CMS-HCC) (Primary Dx); Alcoholic cirrhosis of liver with ascites (CMS-HCC); Kidney transplant recipient; Acute kidney injury superimposed on CKD (CMS-HCC); CKD (chronic kidney disease) stage 4, GFR 15-29 ml/min (CMS-HCC); Immunosuppressive management encounter following liver transplant (CMS-HCC); Abdominal pain, unspecified abdominal location 11/04/2024 Telephone [facility] Transplant at [address] [place] [address] Maureen Pantoja, RN Results 11/04/2024 Results Follow-Up [facility] Transplant at [address] [place] [address] Maureen Pantoja, RN Tacrolimus level, Hepatic Function Panel, Renal Function Panel w/EGFR, Additional followed-up results: 3 11/04/2024 Social Work [facility] Transplant at [address] [place] [phone] Kaylin Willard MSW 11/04/2024 Nutrition [facility] Kidney Transplant at [address] [place] [address] Ben Weiss, DMITRY 11/03/2024 Chart Note [facility] Liver Transplant at [address] [place] [address] Hillary Fernandes, PharmD Liver Transplant Pharmacy Discharge Note 11/03/2024 Telephone [facility] Transplant at [address] [place] [address] Marisela Martinez MA 10/31/2024 Orders Only [facility] Liver Transplant at [address] [place] [phone] Harvey Domínguez III, MD Liver replaced by transplant ([facility]) (Primary Dx); Immunosuppressive management encounter following liver transplant ([facility]) 10/29/2024 Travel 10/29/2024 Education Chart Note [facility] Transplant at [address] [place] [address] Crista Power RN 10/27/2024 2:34 AM EDT Anesthesia Event [facility] [address] [place] [address] Rocky Manning MD Kopel, Lior, MD 10/27/2024 2:00 AM EDT - 10/27/2024 6:54 AM EDT Surgery [facility] [address] [facility] [place] [address] Harvey Domínguez III, MD Donor Kidney Transplant , Back Bench Preparation Donor Kidney, Baseline Kidney transplant biopsy , Insertion of Indwelling Stent , Removal of Perihepatic packing 10/27/2024 Pharmacy Services [facility] [address] [phone] Opal Cox, Lissett 10/27/2024 Chart Note [facility] Kidney Transplant at [address] [phone] Karen Rosen, ЮЛИЯ I have verified that the donor serologies entered in Epic match the donor 10/27/2024 Chart Note [facility] Liver Transplant at [address] [phone] Crista Power, RN I introduced myself as inpatient liver/kidney nursing project coordinator, 10/27/2024 Orders Only [facility] [address] [place] [phone] Abdulkadir Gaspar MD 10/26/2024 Chart Note [facility] Kidney Transplant at [address] [phone] Geri Vasquez, ЮЛИЯ 10/26/2024 Chart Note [facility] Liver Transplant at [address] [phone] Geri Vasquez, ЮЛИЯ 10/25/2024 10:54 PM EDT Anesthesia Event [facility] [place] [phone] Eber Quinones MD Edwards, Anna, MD 10/25/2024 10:30 PM EDT - 10/26/2024 6:12 AM EDT Surgery [facility] [address] [place], [place] [address] [address] Harvey Domínguez III, MD LIVER TRANSPLANT 10/25/2024 8:46 PM EDT - 11/02/2024 6:23 PM EDT Hospital Encounter [facility] [address] [place] [phone] Harvey Domínguez III, MD Haugen, Christine, MD Acute kidney injury superimposed on CKD ([facility]) (Primary Dx); Prophylactic antibiotic; Prolonged QT interval; Immunosuppression (CMS-HCC); Abdominal pain, unspecified abdominal location Discharge Disposition: Home or Self Care WITHOUT Home Care Services 10/25/2024 Travel 10/25/2024 Telephone [facility] Liver Transplant at [address] [address] Krissy Crowell, RN DDLT patient instructions 10/25/2024 Telephone [facility] Liver Transplant at [address] [address] Krissy Crowell, ЮЛИЯ 10/24/2024 Telephone [facility] at [address] [place] [address] Joann Davies MA Appointment 10/22/2024 Telephone [facility] Liver Transplant at [address] [phone] Mary Butler RN 10/22/2024 Chart Note [facility] Kidney Transplant at [address] [phone] Gladis Rainey RN Received most recent eGFR from today with result of 21. Pt meets CKD 10/22/2024 Chart Note [facility] Liver Transplant at [address] [phone] Faraz Carballo, ЮЛИЯ 2nd ABO verified for [facility] listing at the request of JOSE G Butler. 10/22/2024 Telephone [facility] Psych[facility]ry Transplant at [address] [place] [address] Lizeth Warren PsyD 10/22/2024 Chart Note [facility] [address] [place] [address] Aaron Gonzalez MD Candidacy for a simultaneous liver-kidney transplant 10/22/2024 Status Update [facility] Transplant at [address] [place] [address] Aaron Gonzalez MD 10/22/2024 Chart Note [facility] Liver Transplant at [address] [place] [address] Mary Butler, RN UNOS VERIFICATION CHECK FORM 10/22/2024 Orders Only [facility] at [facility] [address] [place] [address] Abdulkadir Gaspar MD 10/22/2024 Chart Note [facility] Liver Transplant at [address] [facility] [address] [place] [address] Mary Butler, RN 10/21/2024 Telephone [facility] at [facility] [address] [facility] [address] [place] [phone] Gerri Peterson MD Medication Management (Requesting RX for New Medication ) 10/21/2024 Refill [facility] at [facility] [address] [facility] [address] [place] [phone] Gerri Peterson MD 10/20/2024 9:10 AM EDT - 10/20/2024 11:59 PM EDT Hospital Encounter [facility] [address] [place] [address] System, Provider Not In Discharge Disposition: Home or Self Care WITHOUT Home Care Services 10/20/2024 9:10 AM EDT - 10/20/2024 11:59 PM EDT Hospital Encounter [facility] [address] [place] [address] System, Provider Not In Discharge Disposition: Home or Self Care WITHOUT Home Care Services 10/20/2024 9:10 AM EDT - 10/20/2024 11:59 PM EDT Hospital Encounter [facility] [address] [place] [address] System, Provider Not In Discharge Disposition: Home or Self Care WITHOUT Home Care Services 10/20/2024 9:10 AM EDT - 10/20/2024 11:59 PM EDT Hospital Encounter [facility] [address] [place] [address] System, Provider Not In Discharge Disposition: Home or Self Care WITHOUT Home Care Services 10/20/2024 9:10 AM EDT - 10/20/2024 11:59 PM EDT Hospital Encounter [facility] [address] [place] [address] System, Provider Not In Discharge Disposition: Home or Self Care WITHOUT Home Care Services 10/20/2024 9:10 AM EDT - 10/20/2024 11:59 PM EDT [facility] Radiology [address] [place] [address] System, Provider Not In Discharge Disposition: Home or Self Care WITHOUT Home Care Services 10/20/2024 9:10 AM EDT - 10/20/2024 11:59 PM EDT Hospital Encounter [facility] [address] [place] [address] System, Provider Not In Discharge Disposition: Home or Self Care WITHOUT Home Care Services 10/20/2024 Orders Only [facility] Pancreas Transplant at [facility] [address] [place] [address] Abdulkadir Gaspar MD 10/20/2024 Telephone [facility] Gastroenterology at [facility] [address] [facility] [address] [place] [phone] Gerri Peterson MD Prescription Issue (RX Clarification Request ) 10/20/2024 Refill [facility] Gastroenterology at [facility] [address] [facility] [address] [place] [phone] Gerri Peterson MD 10/20/2024 Telephone [facility] Liver Transplant at [address] [place] [phone] Mary Butler, ЮЛИЯ 10/17/2024 Chart Note [facility] Kidney Transplant at [address] [phone] Anny Cote, RN Copy of HLA report scanned into the media tab. Will follow up on GFR 10/17/2024 Chart Note [facility] Kidney Transplant at [address] [phone] Anny Cote, RN 10/17/2024 Pharmacy Services [facility] [address] [place] [phone] Ridge Menjivar RPh 10/14/2024 8:42 AM EDT - 10/14/2024 9:27 AM EDT Surgery [facility] Cardiac Cone Tender [address] [place] [phone] Irving Matta MD Left Heart Cath 10/14/2024 Chart Note [facility] Kidney Transplant at [address] [phone] [facility] [address] 10/05/2024 11:12 PM EDT - 10/17/2024 10:29 AM EDT Hospital Encounter [facility] [address] [place] [phone] Gómez Blanchard MD Wood, Sharice N, MD [...] as 4 glasses of wine a days Hublished Answer Date Recorded In the past 12 months has th [employer], gas, oil, or water Anygma threatened to shut off services in your [...] series) 10/11/2010 09/13/2010 Immunization: COVID-19 ( season) 2025 03/17/2021, 07/25/2020, 06/27/2020 Immunization: Influenza (MyC adler) (#1) 2025 03/12/2024, 03/12/2023 Thyroid Function/TSH (MyChart) 10/07/2025 0 10/07/2024, 10/06/2024, 09/03/2024 Alcohol Misuse Screening 10/25/2025 025, 10/05/2024, 09/03/2024, Additional history exists Depression Screening 12/10/2025 12/10/2024, 12/10/2024, 09/29/2024, Additional history exists Renal Function/GFR 01/09/2026 01/09/2025, 0 01/05/2025, 12/31/2024, Additional history exists Immunization: DTaP/Tdap/Td ( 3 - Td or Tdap) 06/03/2028 06/03/2018, 09/13/2010 Hepatitis C Screening (MyChart) Completed 10/25/2024, 10/07/2024, 10/06/2024, Additional history exists HIV Screening Completed 11/25/2024, 10/12, 10/07/2024 Procedures Procedure Name Priority Date/Time Associated Diagnosis Comments MAGNESIUM Routine 01/09/2025 12:23 PM EDT CBC AND DIFFERENTIAL Routine 01/09/2025 12:23 PM EDT RENAL FUNCTION PANEL W/O EGFR Routine 01/09/2025 12:23 PM EDT CREATININE, URINE, RANDOM Routine 2024 12:23 PM EDT URINALYSIS W/RFL TO MICROSCOPIC Routine 01/09/2025 12:23 PM EDT URINE PROTEIN, TOTAL, RANDOM (W/O CREATININE) Routine 01/09/2025 12:23 PM EDT HEPATIC FUNCTION PANEL Routine 12:23 PM EDT URINE CULTURE Routine 01/06/2025 12:23 PM EDT TACROLIMUS LEVEL Routine 01/05/2025 9:27 AM [...] AM EDT S/P liver transplant (CMS-HCC) Immunosuppression ([facility]-HCC) Alcohol use HIV-1 RNA, QUANTITATIVE, PCR Routine 11/25/2024 8:42 AM EDT S/P liver transplant (CMS-HCC) Immunosuppression ([facility]-HCC) Viral disease exposure HEPATITIS C RNA, QUANTITATIVE [...] Routine 10/31/2024 10:19 AM EDT US DUPLEX [id number]-[id number] COMPLETE Routine 10/31/2024 10:19 AM EDT ECG [...] STAT 10/28/2024 4:23 PM EDT US DUPLEX [id number]-[id number] COMPLETE STAT 10/28/2024 4:23 PM EDT TRANSFUSE [...] STAT 10/27/2024 9:51 AM EDT US DUPLEX [id number] COMPLETE STAT 10/27/2024 9:51 AM EDT US [...] Acute kidney injury superimposed on CKD (CMS-HCC) CO RENAL ALTRNSPLJ IMPLTJ GRF W/SURVEILLANCE TECHNICIAN NEPHRECTOMY 10/27/2024 2:32 AM EDT Acute [...] CATH DOCUMENTS SCAN 10/14/2024 2:06 AM EDT TSH Routine 10/07/2024 6:37 PM EDT from Last 3 Months or Most Recently Relevant to Health Maintenance Results * Urine Protein, Tot, Random (w/o Creat) (01/09/2025 12:23 PM EDT) Only the most recent of5 resultswithin the time period is included. Total Protein, Ur 15.0 Urine Narrative Resulting Agency Comment [facility] Historical Provider URINE ORDERABLES Final Re sult * Hepatic Function Panel (01/09/2025 12:23 PM EDT) Only the most recent of34 resultswithin the time period is included. Bilirubin, Direct 0.4 Bilirubin, Indirect 0.6 Alkaline Phosphatase 57 ALT 13 AST 22 Total Bilirubin 1.0 Total Protein 7.3 Plasma Narrative Resulting Agency Comment [facility] Historical Provider LAB BLOOD ORDERABLES Denisse l Result * Creatinine, urine, random (01/09/2025 12:23 PM EDT) Only the most recent of5 resultswithin the time period is included. Creatinine, Urine 66 Urine Narrative Resulting Agency Comment [facility] Historical Provider URINE ORDERABLES Final Re sult * Urinalysis w/Rfl to Microscopic (01/09/2025 12:23 PM EDT) Only the most recent of9 resultswithin the time period is included. Glucose, UA Negative Negative Ketones, UA Negative Negative Blood, UA Negative Negative Bilirubin, UA Negative Negative Urobilinogen, UA Normal Normal Protein, UA Negative Negative Leukocyte Esterase, UA Negative Negative pH, UA 6.0 4.5 - 8.0 Specific [place], UA 1.020 1.005 - 1.030 Clarity, UA Clear Clear Color, UA Yellow Light Yellow, Yellow Urine Narrative Resulting Agency Comment [facility] Historical Provider URINE ORDERABLES Final Re sult * (ABNORMAL) CBC and differential (01/09/2025 12:23 PM EDT) Only the most recent of14 resultswithin the time period is included. Hemoglobin 12.4(A) 13.5 - 17.5 g/dL Hematocrit [...] 1.8 10^3/mL Blood Narrative Resulting Agency Comment [facility] Result [facility] Provider MD LAB BLOOD ORDERABLES Denisse l Result * (ABNORMAL) Magnesium (01/09/2025 12:23 PM EDT) Only the most recent of27 resultswithin the time period is included. Magnesium 1.3(A) 1.6 - 2.4 mg/dL Plasma Result [facility] LAB BLOOD ORDERABLES Denisse l Result * (ABNORMAL) Renal Function Panel w/o EGFR (01/09/2025 12:23 PM EDT) Only the most recent of15 resultswithin the time period is included. Glucose 108 BUN 20 CO2 23(A) 13 - 22 mmol/L Creatinine 0.90 Potassium 4.3 Sodium 138 Chloride 107 Phosphorus 4.4 2.5 - 4.9 mg/dL Calcium 10.1 EGFR 93 mg/dL Albumin 5.0 3.5 - 5.0 g/dL Blood Narrative Resulting Agency Comment [facility] Result [facility] LAB BLOOD ORDERABLES Denisse l Result * Urine culture (01/06/2025 12:23 PM EDT) Only the most recent of5 resultswithin the time period is included. [facility] Urine Culture, Comprehensive no growth URINE SPECIMEN / Unknown Result [facility] Provider MICROBIOLOGY - GENERAL OR DERABLES Final Result * BK Virus Quantitative by PCR, Blood (01/05/2025 9:27 AM EDT) Only the most recent of2 resultswithin the time period is included. BK Virus Quant PCR PL Negative Plasma Result [facility] Provider LAB BLOOD ORDERABLES Denisse l Result * Tacrolimus level (01/05/2025 9:27 AM EDT) Only the most recent of20 resultswithin the time period is included. Tacrolimus Lvl 12.6 6 - 15 ng/mL Whole Blood Historical Provider MD LAB BLOOD ORDERABLES Denisse l Result * Protime-INR (12/23/2024 9:53 AM EDT) Only the most recent of18 resultswithin the time period is included. INR 0.94 0.9 - 1.1 Protime 10.5 Plasma Harvey Domínguez III, MD LAB BLOOD ORDERABLE S Final Result * Phosphatidylethanol Confirmation, B (11/25/2024 8:42 AM EDT) PETH 16:0/18.1 (POPETH) 14 Cutoff: 10 ng/mL 11/28/2024 8:[address] [facility] Comment: Phosphatidylethanol (PEth) homologues result interpretation [...] PEth Interpretation Positive. 11/28 8:[address] [facility] Comment: ADDITIONAL INFORMATION This report is intended for use in clinical monitoring and management of patients. It is not intended for use in employment-related testing. This test was developed and its performance characteristics determined by [facility] in a manner consistent with CLIA requirements. This test has not been cleared or approved by the U.S. Food and Drug Administration. Test Performed by: [facility] [address] [id number] Outside Installer Apprentice: Kathy Ortiz Ph.D.; CLIA# [id number] Whole Blood 11/25/2024 8:42 AM EDT 11/28/2024 8:24 AM EDT [facility] - 11/28/2024 8:24 AM EDT One time lab order to be collected with next set of standing liver transplant labs. Please fax all results to [phone]. Call critical results to [phone]. us Harvey Domínguez III, MD LAB BLOOD ORDERABLE S Final Result [facility] [address] [place] [address], [facility] * Hepatitis B Virus (HBV), PCR, Quant (11/25/2024 8:42 AM EDT) Hep B Viral DNA IU/ML Not Detected IU/mL 11/28/2024 10:[address] [facility] Comment:Test methodology for HBV DNA quantification is an FDA-approved nucleic acid amplification assay. The lower limit of quantitation (LLOQ) is 10 IU/mL. The linear range of the assay is 10-1,000,000,000 IU/mL. The limit of detection (LoD) for plasma is 2.7 IU/mL. The reference range is Not Detected. log 10 HBV as IU/mL See Note log 10 IU/mL 11/28/2024 10:[address] [facility] Comment:HBV DNA not detected . Plasma 11/25/2024 8:42 AM EDT 11/25/2024 10:59 AM EDT [facility] LAB - 11/28/2024 10:09 AM EDT One time lab order to be collected with next set of standing liver transplant labs. UNOS requirement. Please fax all results to [phone]. Call critical results to [phone]. Harvey Domínguez III, MD LAB BLOOD ORDERABLE S Final Result Performing Organization Address City/[facility]/ZIP Co de Phone Number [facility] [address] [facility]. [address] * HIV-1 RNA, Quantitative, PCR (11/25/2024 8:42 AM EDT) Pathologist [facility] HIV 1 Copies Not Detected copies/mL 11/26/2024 10:57 AM EDT [facility] Comment:Test methodology for HIV-1 RNA quantification is an FDA-approved nucleic acid amplification assay. The Lower Limit of Quantitation (LLoQ) is 20 copies/mL. The linear range is 20- to 10,000,000 copies/mL. The Limit of Detection (LoD) is 13.2 copies/mL. The reference range is Not Detected. HIV [id number] See Note [id number] /mL 11/26/2024 10:57 AM EDT [facility] Comment:HIV-1 RNA not detect ed. Plasma 11/25/2024 8:42 AM EDT 11/25/2024 10:59 AM EDT [facility] - 11/26/2024 10:57 AM EDT One time lab order to be collected with next set of standing liver transplant labs. UNOS requirement. Please fax all results to [phone]. Call critical results to [phone]. us Harvey Domínguez III, MD LAB BLOOD ORDERABLE S Final Result Performing Organization Address City/[facility]/ZIP Co de Phone Number [facility] [address] * Hepatitis C RNA, Quantitative PCR (11/25/2024 8:42 AM EDT) Pathologist [facility] Units Not Detected IU/mL 11/27/2024 11:35 AM EDT [facility] Comment:Test methodology for HCV RNA quantification is an FDA-approved nucleic acid amplification assay. The Lower Limit of Quantitation (LLOQ) is 15 IU/mL. The linear range of the assay is 15-100,000,000 IU/mL. The Limit of Detection (LoD) is 12.0 IU/mL for EDTA plasma. The reference range is Not Detected. IU log10 See Note log 10 IU/mL 11/27/2024 11:35 AM EDT [facility] Comment:HCV RNA not detected . Plasma 11/25/2024 8:42 AM EDT 11/25/2024 10:59 AM EDT Narrative [facility] - 11/27/2024 11:35 AM EDT One time lab order to be collected with next set of standing liver transplant labs. UNOS requirement. Please fax all results to [phone]. Call critical results to [phone]. us Harvey Domínguez III, MD LAB BLOOD ORDERABLE S Final Result [facility] [address] [place] [address], [facility] * Differential (11/25/2024 8:42 AM EDT) Only the most recent of5 resultswithin the time period is included. Neutrophils Relative 73.2 40.0 - 80.0 % 11/25/2024 10:25 AM EDT [facility] Lymphocytes Relative 19.2 15.0 - 45.0 % 11/25/2024 10:25 AM EDT [facility] Monocytes Relative 6.3 0.0 - 12.0 % 11/25/2024 10:25 AM EDT [facility] Eosinophils Relative 0.4 0.0 - 8.0 % 11/25/2024 10:25 AM EDT [facility] Basophils Relative 0.9 0.0 - 1.0 % 11/25/2024 10:25 AM EDT [facility] nRBC 0 0 - 0 /100 WBC 11/25/2024 10:25 AM EDT [facility] Neutrophils Absolute 5,929 1,520 - 8,640 /uL 11/25/2024 10:25 AM EDT [facility] Lymphocytes Absolute 1,555 570 - 4,860 /uL 11/25/2024 10:25 AM EDT [facility] Monocytes Absolute 510 0 - 1,296 /uL 11/25/2024 10:25 AM EDT [facility] Eosinophils Absolute 32 0 - 864 /uL 11/25/2024 10:25 AM EDT [facility] Basophils Absolute 73 0 - 108 /uL 11/25/2024 10:25 AM EDT [facility] Whole Blood 11/25/2024 8:42 AM EDT 11/25/2024 9:44 AM EDT Narrative [facility] - 11/25/2024 10:25 AM EDT Standing orders to be drawn: Every Sunday and before 9am and prior to patient taking morning medications. Liver Transplant Fax results to [phone] Call Critical results to [phone] us Harvey Domínguez III, MD LAB BLOOD ORDERABLE S Final Result [facility] [address] * (ABNORMAL) CBC (11/25/2024 8:42 AM EDT) Only the most recent of24 resultswithin the time period is included. WBC 8.1 3.8 - 10.8 10E3/uL 11/25/2024 10:25 AM EDT [facility] RBC 3.71(L) 4.20 - 5.80 10E6/uL 11/25/2024 10:25 AM EDT [facility] Hemoglobin 11.7(L) 13.2 - 17.1 g/dL 11/25/2024 10:25 AM EDT [facility] Hematocrit 33.8(L) 38.5 - 50.0 % 11/25/2024 10:25 AM EDT [facility] MCV 91.1 80.0 - 100.0 fL 11/25/2024 10:25 AM EDT [facility] MCH 31.5 27.0 - 33.0 pg 11/25/2024 10:25 AM EDT [facility] MCHC 34.6 32.0 - 36.0 g/dL 11/25/2024 10:25 AM EDT [facility] RDW 20.0(H) 11.0 - 15.0 % 11/25/2024 10:25 AM EDT [facility] Platelets 193 140 - 400 10E3/uL 11/25/2024 10:25 AM EDT [facility] Comment:Slide Reviewed for P LT Clumps. None Seen. MPV 6.9(L) 7.5 - 11.5 fL 11/25/2024 10:25 AM EDT [facility] Whole Blood 11/25/2024 8:42 AM EDT 11/25/2024 9:44 AM EDT us Gerri Peterson MD LAB BLOOD ORDERABLES Final Resu lt [facility] [address] * (ABNORMAL) Comprehensive metabolic panel (11/25/2024 8:42 AM EDT) Sodium 141 133 - 146 mmol/L 11/25/2024 10:20 AM EDT [facility] Potassium 4.3 3.5 - 5.3 mmol/L 11/25/2024 10:20 AM EDT [facility] Chloride 106 98 - 110 mmol/L 11/25/2024 10:20 AM EDT [facility] CO2 23 21 - 33 mmol/L 11/25/2024 10:20 AM EDT [facility] Anion Gap 12 3 - 16 mmol/L 11/25/2024 10:20 AM EDT [facility] BUN 43(H) 7 - 25 mg/dL 11/25/2024 10:20 AM EDT [facility] Creatinine 1.59(H) 0.60 - 1.30 mg/dL 11/25/2024 10:20 AM EDT [facility] Glucose 93 70 - 100 mg/dL 11/25/2024 10:20 AM EDT [facility] Calcium 10.0 8.6 - 10.3 mg/dL 11/25/2024 10:20 AM EDT [facility] Total Bilirubin 0.7 0.0 - 1.5 mg/dL 11/25/2024 10:20 AM EDT [facility] AST 9(L) 13 - 39 U/L 11/25/2024 10:20 AM EDT [facility] ALT 22 7 - 52 U/L 11/25/2024 10:20 AM EDT [facility] Alkaline Phosphatase 198(H) 36 - 125 U/L 11/25/2024 10:20 AM EDT [facility] Total Protein 7.0 6.4 - 8.9 g/dL 11/25/2024 10:20 AM EDT [facility] Albumin 4.5 3.5 - 5.7 g/dL 11/25/2024 10:20 AM EDT [facility] Osmolality, Calculated 303 278 - 305 mOsm/kg 11/25/2024 10:20 AM EDT [facility] EGFR 56 11/25/2024 10:20 AM EDT [facility] Comment:As of 2021, [...] LAB BLOOD ORDERABLES Final Resu lt [facility] [address] [place] [address], [facility] * (ABNORMAL) Post Kidney Transplant Urine Culture (11/11/2024 9:13 AM EDT) Only the most recent of3 resultswithin the time period is included. Culture Result Enterococcus faecium([facility]) [facility] Comment: <1,000 cfu/mL Identified by MALDI-TOF MS No Further Workup Midstream Urine URINE SPECIMEN / Unknown 11/11/2024 9:13 AM EDT 11/11/2024 10:17 AM EDT Caron Santos CNP MICROBIOLOGY - GENERAL OR DERABLES Final Result [facility] [address] [place] [address], [facility] * (ABNORMAL) Renal Function Panel w/EGFR (11/11/2024 9:13 AM EDT) Only the most recent of22 resultswithin the time period is included. Sodium 141 133 - 146 mmol/L 11/11/2024 10:51 AM EDT [facility]ALTH LAB Potassium 4.6 3.5 - 5.3 mmol/L 11/11/2024 10:51 AM EDT [facility] Chloride 108 98 - 110 mmol/L 11/11/2024 10:51 AM EDT [facility] CO2 24 21 - 33 mmol/L 11/11/2024 10:51 AM EDT [facility] Anion Gap 9 3 - 16 mmol/L 11/11/2024 10:51 AM EDT [facility] BUN 27(H) 7 - 25 mg/dL 11/11/2024 10:51 AM EDT [facility] Creatinine 1.14 0.60 - 1.30 mg/dL 11/11/2024 10:51 AM EDT [facility] Glucose 97 70 - 100 mg/dL 11/11/2024 10:51 AM EDT [facility] Calcium 8.6 8.6 - 10.3 mg/dL 11/11/2024 10:51 AM EDT [facility] Phosphorus 4.4 2.1 - 4.7 mg/dL 11/11/2024 10:51 AM EDT [facility] Albumin 3.8 3.5 - 5.7 g/dL 11/11/2024 10:51 AM EDT [facility] Osmolality, Calculated 297 278 - 305 mOsm/kg 11/11/2024 10:51 AM EDT [facility] EGFR 83 11/11/2024 10:51 AM EDT [facility] Comment:As of 2021, [...] AM EDT 11/11/2024 10:19 AM EDT Narrative [facility] - 11/11/2024 10:51 AM EDT Standing orders to be drawn: Every Sunday and before 9am and prior to patient taking morning medications. Liver Transplant Fax results to [phone] Call Critical results to [phone] DO NOT REPLACE RENAL PANEL or HEPATIC FUNCTION PANEL w/ CMP, BMP or HEPATIC PROFILE Harvey Domínguez III, MD LAB BLOOD ORDERABLE S Final Result [facility] [address] [id number], [facility] * Protein / creatinine ratio, urine (11/11/2024 9:13 AM EDT) Only the most recent of2 resultswithin the time period is included. Creatinine, Urine 71.40 mg/dL 11/11/2024 10:38 AM EDT [facility] Comment:Reference range not established for this test. Total Protein, Ur 28 mg/dL 11/11/2024 10:38 AM EDT [facility] Comment:Reference range not established for this test. Prot/Creat Ratio, Ur 0.39 ratio 11/11/2024 10:38 AM EDT [facility] Urine 11/11/2024 9:13 AM EDT 11/11/2024 10:12 AM EDT us Caron Santos BLIND HOOKER URINE ORDERABLES Final Re sult Performing Organization Address [facility] Co de Phone Number [facility] [address] [facility] * EKG - scan (11/03/2024 9:07 [...] 100 mg/dL 11/02/2024 5:45 PM EDT [facility] Blood 11/02/2024 5:44 PM EDT 11/02/2024 5:45 PM EDT us Harvey Domínguez III, MD POINT OF CARE TEST ORDERABLES Final Result Performing Organization Address [facility]/ZIP Co de Phone Number [facility] [address] [facility] * X-ray Portable Abdomen AP view [...] Adrenal gland: No focal nodule seen. Kidneys: [place] kidneys noted with nonobstructing calcifications on the right. Findings of postsurgical changes in the left [place] kidney. Mild right hydronephrosis without an obstructive [...] Adrenal gland: No focal nodule seen. Kidneys: [place] kidneys noted with nonobstructing calcifications on theright. Findings of postsurgical changes in the left [place] kidney. Mildright hydronephrosis without an obstructive course [...] QT: 400 ms QTc: 456 ms P [place]: 49 degrees R [place]: 3 degrees T [place]: 14 degrees Diagnosis Line: NORMAL SINUS RHYTHM ^ NORMAL ECG ^ ^ Confirmed by MD REID JAMES ([id number]) on 11/02/2024 6:56:52 AM us Priti Alex BLIND HOOKER ECG ORDERABLES Final Result MUSE * US Duplex Eyt-Zjh-Ejulwtv Comp (10/31/2024 10:19 AM EDT) Only the [...] EXAM: US ABDOMEN LIMITED EXAM: US DUPLEX [id number] COMPLETE INDICATION: Post-op liver transplant COMPARISON: None [...] visualized secondary to poor acoustic windows. The [place] right kidney measures 11.6 cm in length. [...] EXAM: US ABDOMEN LIMITED EXAM: US DUPLEX [id number] COMPLETE INDICATION: Post-op liver transplant COMPARISON: None [...] well visualized secondary to poor acousticwindows. The [place] right kidney measures 11.6 cm in length. [...] 10/31/2024 10:35 AM EDT us Beata Horner [facility] US ORDERABLES Final R esult [...] EXAM: US ABDOMEN LIMITED EXAM: US DUPLEX [id number] COMPLETE INDICATION: Post-op liver transplant COMPARISON: None [...] visualized secondary to poor acoustic windows. The [place] right kidney measures 11.6 cm in length. [...] EXAM: US ABDOMEN LIMITED EXAM: US DUPLEX [id number] COMPLETE INDICATION: Post-op liver transplant COMPARISON: None [...] well visualized secondary to poor acousticwindows. The [place] right kidney measures 11.6 cm in length. [...] at 10/31/2024 10:35 AM EDT Beata Horner [facility] US ORDERABLES Final R esult [...] at 10/31/2024 10:29 AM EDT Beata Horner [facility] US ORDERABLES Final R esult * Prepare RBC, leukoreduced, 1 Units (10/29/2024 6:16 AM EDT) Only the most recent of6 resultswithin the time period is included. Product Code M4964C34 [facility] Unit Number [id number] [facility] Dispense Status Presumed Transfused_PT [facility] Blood Expiration Date [id number] [facility] Coding System [id number] [facility] Blood Bank Product us Shay Guzmán MD BLOOD BANK PRODUCT O RDERABLES Final Result [facility] * (ABNORMAL) TEG-Bypass/ECMO/Liver HN (Factor function, Platelet/Fibrin Clot Strength w/Clot Breakdown, Heparinase In All Channels) (10/29/2024 5:07 AM EDT) Only the most recent of13 resultswithin the time period is included. Citrated Kaolin Reaction Time (TEGECMOLIVER) 8.9 4.6 - 9.1 minutes 10/29/2024 7:04 AM EDT [facility] Citrated Kaolin W/Heparinase Reaction Time (TEGECMOLIVER) 7.4 4.3 - 8.3 minutes 10/29/2024 7:04 AM EDT [facility] Citrated Kaolin Maximum Amplitude (TEGECMOLIVER) 52.9 52.0 - 69.0 mm 10/29/2024 7:04 AM EDT [facility] Citrated Functional Fibrinogen W/Heparinase Maximum Amplitude(TEGEC MOLIVER) 20.7 15.0 - 34.0 mm 10/29/2024 7:04 AM EDT [facility] Citrated Rapid Teg W/Heparinase Maximum Amplitude (TEGECMOLIVER) 49.7(L) 53.0 - 69.0 mm 10/29/2024 7:04 AM EDT [facility] Citrated Kaolin w/Heparinase Percent Lysis (TEGECMOLIVER) 0.0 0.0 - 3.2 % 10/29/2024 7:04 AM EDT [facility] Whole Blood (Citrate) 10/29/2024 5:07 AM EDT 10/29/2024 5:10 AM EDT Kemar Sahni MD LAB BLOOD ORDERABLES Final Result Performing Organization Address City/State/[facility] de Phone Number [facility] [address] [facility] * Transfuse RBC Transfusion Rate: Per dept routine (10/28/2024 5:23 PM EDT) Only the most recent of16 resultswithin the time period is included. Shay Guzmán MD NURSING TREATMENT OR DERABLES - BLOOD ADMIN Final Result Performing Organization Address [facility] de Phone Number EXTERNAL * (ABNORMAL) Lactic Acid, STAT (10/28/2024 11:09 AM EDT) Only the most recent of8 resultswithin the time period is included. Lactate 0.3(L) 0.5 - 2.2 mmol/L 10/28/2024 11:37 AM EDT [facility] Plasma 10/28/2024 11:0 9 AM EDT 10/28/2024 11:15 AM EDT Carlos Marks MD LAB BLOOD ORDERABLES Final Result Performing Organization Address [facility] de Phone Number [facility] [address] [facility] * Prepare Platelets, leukoreduced (10/28/2024 6:15 AM EDT) Only the most recent of5 resultswithin the time period is included. Product Code F3337B28 HCLL Unit Number [id number] HCLL Dispense Status Presumed Transfused_PT HCLL Blood Expiration Date HCLL Coding System [id number] HCLL Product Code U0548R29 HCLL Unit Number [id number] HCLL Dispense Status Presumed Transfused_PT HCLL Blood Expiration Date HCLL Coding System [id number] HCLL Attending Provider Unknown BLOOD BANK PRODUCT OR DERABLES Final Result Performing Organization Address [facility] de Phone Number HCLL * Prepare Fresh Frozen Plasma (10/28/2024 6:15 AM EDT) Only the most recent of5 resultswithin the time period is included. Product Code D2025F54 HCLL Unit Number [id number] HCLL Dispense Status Released from Crossmatch_RE HCLL Blood Expiration Date HCLL Coding System EWHU446 HCLL Product Code Z0429Z16 HCLL Unit Number [id number] HCLL Dispense Status Presumed Transfused_PT HCLL Blood Expiration Date HCLL Coding System BLLR349 HCLL Product Code F1932Y92 HCLL Unit Number [id number] HCLL Dispense Status Released from Crossmatch_RE HCLL Blood Expiration Date HCLL Coding System JOHH406 HCLL Product Code J5657A39 HCLL Unit Number [id number] HCLL Dispense Status Presumed Transfused_PT HCLL Blood Expiration Date HCLL Coding System MGPX676 HCLL Product Code R6850G50 HCLL Unit Number [id number] HCLL Dispense Status Released from Crossmatch_RE HCLL Blood Expiration Date [id number] HCLL Coding System [id number] HCLL Attending Provider Unknown BLOOD BANK PRODUCT OR DERABLES Final Result HCLL * Prepare Cryoprecipitate, 1 Units (10/28/2024 6:15 AM EDT) Only the most recent of4 resultswithin the time period is included. Product Code W2747J78 HCLL Unit Number [id number] HCLL Dispense Status Presumed Transfused_PT HCLL Blood Expiration Date HCLL Coding System MLFR427 HCLL Product Code N1843F25 HCLL Unit Number [id number] HCLL Dispense Status Presumed Transfused_PT HCLL Blood Expiration Date [id number] HCLL Coding System FIAX216 HCLL Blood Bank Product us John Pina MD BLOOD BANK PRODUCT ORDERABLES F inal Result HCLL * (ABNORMAL) Blood Gas, Arterial, STAT (10/27/2024 2:40 PM EDT) Only the most recent of6 resultswithin the time period is included. O2 Sat, Arterial 98 10/27/2024 2:46 PM EDT [facility] FIO2 RA 10/27/2024 2:46 PM EDT [facility] pH, Arterial 7.37 7.35 - 7.45 10/27/2024 2:46 PM EDT [facility] pCO2, Arterial 35 35 - 45 mm Hg 10/27/2024 2:46 PM EDT [facility] pO2, Arterial 92 80 - 100 mm Hg 10/27/2024 2:46 PM EDT [facility] HCO3, Arterial 21(L) 22 - 26 mmol/L 10/27/2024 2:46 PM EDT [facility] CO2 Content,Arteri al 21(L) 23 - 27 mmol/L 10/27/2024 2:46 PM EDT [facility] Base Excess, Arterial -4.6(L) -2.0 - 3.0 mmol/L 10/27/2024 2:46 PM EDT [facility] %HBO2, Arterial 95.4 95.0 - 98.0 % 10/27/2024 2:46 PM EDT [facility] Carboxyhemoglo bin, Arterial 1.6 % 10/27/2024 2:46 PM EDT [facility] Comment: CARBOXYHEMOGLOBIN (CO) REFERENCE RANGES: Non-Smokers: <2 % Smokers: <8 % TOXIC: >20 % Methemoglobin, Arterial 1.0 0.0 - 1.5 % 10/27/2024 2:46 PM EDT [facility] Reduced hemoglobin, Arterial 2.1 0.0 - 5.0 % 10/27/2024 2:46 PM EDT [facility] Blood, Arterial 10/27/2024 2 :40 PM EDT 10/27/2024 2:44 PM EDT Narrative [facility] - 10/27/2024 2:46 PM EDT Post extubation us John Coulter MD LAB BLOOD ORDERABLES Final R esult [facility] [address] [place] [address], [facility] * CARISA Rhythm Strip - Scan (10/27/2024 9:25 AM EDT) Only the most recent of4 resultswithin the time period is included. us [...] A) Negative 10/27/2024 11:30 AM EDT [facility] Comment:Presence of detectab le VCA IgG antibodies. 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 EBV IGG NUM 314.00(H) 0.00 - 17.99 U/mL 10/27/2024 11:30 AM EDT [facility] Serum 10/27/2024 8:00 AM EDT 10/27/2024 8:20 AM EDT Kemar Sahni MD LAB BLOOD ORDERABLES Final Result [facility] [address] * Hemoglobin A1c (10/27/2024 8:00 AM EDT) Hemoglobin A1C 5.0 4.0 - 5.6 % 10/27/2024 11:12 AM EDT [facility] Comment: Hemoglobin A1c [...] MD LAB BLOOD ORDERABLES Final Result [facility] [address] [place] [address], [facility] * X-ray Abdomen AP view (10/27/2024 [...] (ABGP) 100 10/27/2024 6:17 AM EDT [facility] pH (ABGP) 7.30(L) 7.35 - 7.45 10/27/2024 6:17 AM EDT [facility] PCO2 (ABGP) 41 35 - 45 mm Hg 10/27/2024 6:17 AM EDT [facility] PO2 (ABGP) 192(H) 80 - 100 mm Hg 10/27/2024 6:17 AM EDT [facility] HCO3 (ABGP) 21(L) 22 - 26 mmol/L 10/27/2024 6:17 AM EDT [facility] CO2 Content (ABGP) 22(L) 23 - 27 mmol/L 10/27/2024 6:17 AM EDT [facility] Base Excess (ABGP) -5.7(L) -2.0 - 3.0 mmol/L 10/27/2024 6:17 AM [facility] Sodium (ABGP) 138 136 - 146 mEq/L 10/[facility]24 [facility] Potassium (ABGP) 3.3(L) 3.5 - 5.0 mEq/L 10/27/2024 6:17 AM [facility] Comment:In the event of in-v itro hemolysis, potassium results may be falsely elevated. Always interpret lab results in conjunction with clinical findings. If hemolysis is suspected, a serum sample may be collected for repeat assessment of potassium. Calcium, Free (ABGP) 5.28 4.50 - 5.30 mg/dL 10/27/2024 6:17 AM [facility] Glucose (ABGP) 112(H) 70 - 100 mg/dL 10/27/2024 6:17 AM [facility] Comment:There is interferenc e with whole blood glucose results on this method when Hematocrit is <25% or >60%. HCT (ABGP) 20.0(L) 40.0 - 52.0 % 10/27/2024 6:17 AM [facility] HGB (ABGP) 6.5(L) 14.0 - 18.0 g/dL 10/27/2024 6:17 AM [facility] %HBO2 (ABGP) 96.8 95.0 - 98.0 % 10/27/2024 6:17 AM [facility] Carboxyhgb (ABGP) 2.1 % 025 6:17 AM [facility] Comment: CARBOXYHEMOGLOBIN (CO) REFERENCE RANGES: Non-Smokers: <2 % Smokers: <8 % TOXIC: >20 % Methemoglobin (ABGP) 1.0 0.0 - 1.5 % 10/27/2024 6:17 AM [facility] Reduced Hemoglobin (ABGP) 0.2 0.0 - 5.0 % 10/27/2024 6:17 AM [facility] Lactic Acid (ABGP) 0.4(L) 0.5 - 1.6 mmol/L 10/27/2024 6:17 AM EDT [facility] Blood, Arterial 10/27/2024 6 :09 AM EDT 10/27/2024 6:14 AM EDT Ben Blake MD LAB BLOOD ORDERABLES Final Re sult Performing Organization Address City/[facility]/ZIP Co de Phone Number [facility] [address] * Transfuse Fresh Frozen Plasma (10/27/2024 [...] Organization Address City/[facility] Co de Phone Number [facility] [address] [place] [address] * Surgical Pathology Exam (10/27/2024 2:38 AM EDT) Only the most recent of2 resultswithin the time period is included. Tissue LEFT KIDNEY STRUCTURE / Unknown 10/27/2024 2:38 AM EDT Narrative [facility] - 10/27/2024 12:00 AM EDT CASE: [id number] PATIENT: BLAIR ANDERSON Clinical History: Transplant kidney with bile duct reconstruction Pre-Operative Diagnosis: Acute kidney injury superimposed on CKD Post-Operative Diagnosis: None Given Specimen(s) Submitted: A. baseline renal biopsy ; B. right lobe liver biopsy; C. left lobe liver biopsy CPT Code(s): 13280 X 1; 77846 X 2; 40032 X 4 Additional Information: FINAL DIAGNOSIS: A. [...] parenchyma, which is entirely submitted in cassette Mitochon [id number] A1. (NAA Mckeon/rr) B. Received in formalin, labeled with the patient's name Blair Anderson and right lobe liver biopsy are two green-brown tissue cores measuring 1.8 and 2.0 cm in length, each with a diameter of 0.1 cm, which are entirely submitted between blue biopsy sponges in cassette [employer] [id number] B1-B2. (NAA Mckeon/ns) C. Received in formalin, [...] Pathologist signing this report is located at [facility], [address] [place] [address], [address], , CLIA ID: [id number] ADDENDUM: A. Kidney, allograft, baseline, wedge biopsy: [...] Pathologist signing this report is located at [facility], [address] [place] [address], [address], , CLIA ID: [id number] Kemar Sahni MD PATHOLOGY/CYTOLOGY ORDERABL ES Edited Result - Final Performing Organization Address City/[facility]/ZIP Co de Phone Number [facility] * Routine Culture plus Stain (10/27/2024 2:15 AM EDT) Only the most recent of2 resultswithin the time period is included. Gram Stain Result No Polymorphonuclear Leukocytes Seen [facility] Gram Stain Result No Organisms Seen; [facility] Culture Result No Growth After 3 Days [facility] Fluid SPECIMEN FROM KIDNEY / Unknown 10/27/2024 2:15 AM EDT 10/27/2024 4:24 AM EDT [facility] - 10/30/2024 9:26 AM EDT 1) perfusate Harvey Domínguez III, MD MICROBIOLOGY - GENE RAL ORDERABLES Final Result Performing Organization Address City/[facility]/ZIP Co de Phone Number [facility] [address] [place] [address]. [address] * Fungus culture (10/27/2024 2:15 AM EDT) Culture Result No Fungus Isolated At 4 Weeks [facility] Fluid SPECIMEN FROM KIDNEY / Unknown 10/27/2024 2:15 AM EDT 10/27/2024 4:24 AM EDT [facility] - 11/24/2024 7:52 AM EDT 1) perfusate Harvey Domínguez III, MD MICROBIOLOGY - GENE RAL ORDERABLES Final Result Performing Organization Address [facility] Co de Phone Number [facility] [address] [place] [address]. [address] * Anaerobic culture (10/27/2024 2:15 AM EDT) Culture Result No Anaerobes Isolated in 5 Days [facility] Fluid SPECIMEN FROM KIDNEY / Unknown 10/27/2024 2:15 AM EDT 10/27/2024 4:24 AM EDT [facility] - 10/31/2024 11:43 AM EDT 1) perfusate us Harvey Domínguez III, MD MICROBIOLOGY - GENE RAL ORDERABLES Final Result Performing Organization Address [facility] de Phone Number [facility] [address] [place] [address] * (ABNORMAL) TEG-Standard Global Hemostasis (Rapid TEG with Heparin Effect, Contains a Baseline TEG) (10/27/2024 1:51 AM EDT) Only the most recent of2 resultswithin the time period is included. Citrated Kaolin Reaction Time (TEGHEPARINASE) 10.6(H) 4.6 - 9.1 minutes 10/27/2024 2:44 AM EDT [facility] Citrated Rapid Teg Maximum Amplitude (TEGHEPARINASE) 42.3(L) 52.0 - 70.0 mm 10/27/2024 2:44 AM EDT [facility] Citrated Functional Fibrinogen Maximum Amplitude (TEGHEPARINASE) 15.0 15.0 - 32.0 mm 10/27/2024 2:44 AM EDT [facility] Citrated Kaolin W/Heparinase Reaction Time (TEGHEPARINASE) 10.5(H) 4.3 - 8.3 minutes 10/27/2024 2:44 AM EDT [facility] Citrated Kaolin K-Time (TEGHEPARINASE) 2.9(A) 0.8 - 2.1 minutes 10/27/2024 2:44 AM EDT [facility] Citrated Kaolin Angle (TEGHEPARINASE) 60.4(A) 63.0 - 78.0 degrees 10/27/2024 2:44 AM EDT [facility] Citrated Kaolin Maximum Amplitude (TEGHEPARINASE) 42.9(L) 52.0 - 69.0 mm 10/27/2024 2:44 AM EDT [facility] Citrated Functional Fibrinogen- Fibrinogen Level (TEGHEPARINASE) 273.7(L) 278.0 - 581.0 mg/dL 10/27/2024 2:44 AM EDT [facility] Whole Blood (Citrate) 10/27/2024 1:51 AM EDT 10/27/2024 2:03 AM EDT us John Pina MD LAB BLOOD ORDERABLES Final Resu lt [facility] [address] [place] [address], [facility] * Calcium Free, Serum (10/27/2024 12:13 AM EDT) Only the most recent of2 resultswithin the time period is included. Free Calcium, Ser 5.20 4.40 - 5.40 mg/dL 10/27/2024 12:37 AM EDT [facility] Comment:Free calcium levels vary inversely with pH by approximately 5% for each 0.1 unit of pH change. Assay results have been normalized to pH = 7.40. Serum 10/27/2024 12:1 3 AM EDT 10/27/2024 12:29 AM EDT Narrative [facility] - 10/27/2024 12:37 AM EDT This test has been developed and its performance characteristics determined by [facility] which is certified under [...] Final Resu lt Performing Organization Address [facility] Co de Phone Number [facility] [address] * Repeat Crossmatch (Recipient Sample) (10/26/2024 4:42 PM EDT) Repeat Cx - Recipient The request and specimen(s) for this test have been received and transported to the [facility] at [address] [place] [address]. [address] [facility] [place] will report results directly to the client. 10/26/2024 4:49 PM EDT [facility] Whole Blood 10/26/2024 4:42 PM EDT 10/26/2024 4:49 PM EDT Narrative [facility] - 10/26/2024 4:49 PM EDT To be sent to [facility] for Donor [id number] cross match with Blair Anderson Sveta Mojica MD LAB BLOOD ORDERABLES Final Resu lt Performing Organization Address [facility] Co de Phone Number [facility] [address] * (ABNORMAL) Fibrinogen (10/26/2024 6:10 AM EDT) Only the most recent of2 resultswithin the time period is included. Fibrinogen 160(L) 218 - 406 mg/dL 10/26/2024 6:41 AM EDT [facility] Plasma 10/26/2024 6:10 AM EDT 10/26/2024 6:26 AM EDT Sveta Mojica MD LAB BLOOD ORDERABLES Final Resu lt [facility] [address] * (ABNORMAL) POC INR (10/26/2024 5:16 AM EDT) Only the most recent of6 resultswithin the time period is included. Prothrombin Time INR, POC 2.4(H) 0.8 - 1.4 10/27/2024 6:51 AM EDT [facility] Comment: Test results may [...] ORDERABLES Final Result Performing Organization Address [facility]/ZIP Co de Phone Number [facility] [address] * POC Lactate (10/26/2024 5:14 AM EDT) Only the most recent of6 resultswithin the time period is included. POC Lactate 1.76 0.50 - 2.20 mmol/L 10/26/2024 5:31 AM EDT [facility] Blood, Arterial 10/26/2024 5 :14 AM EDT 10/26/2024 5:31 AM EDT Harvey Domínguez III, MD POINT OF CARE TEST ORDERABLES Final Result [facility] [address] * POC TCO2 (10/26/2024 5:14 AM EDT) Only the most recent of6 resultswithin the time period is included. POC TCO2, Arterial 23 23 - 27 mmol/L 10/26/2024 5:31 AM EDT [facility] Blood, Arterial 10/26/2024 5 :14 AM EDT 10/26/2024 5:31 AM EDT us Harvey Domínguez III, MD POINT OF CARE TEST ORDERABLES Final Result Performing Organization Address City/[facility] Co de Phone Number [facility] [address] [place] [address]. [address] * POC Sodium (10/26/2024 5:14 AM EDT) Only the most recent of6 resultswithin the time period is included. POC Sodium 138 136 - 146 mmol/L 10/26/2024 5:31 AM EDT [facility] Blood, Arterial 10/26/2024 5 :14 AM EDT 10/26/2024 5:31 AM EDT us Harvey Domínguez III, MD POINT OF CARE TEST ORDERABLES Final Result Performing Organization Address [facility] de Phone Number [facility] [address] [place] [address]. [address] * (ABNORMAL) POC Potassium (10/26/2024 5:14 AM EDT) Only the most recent of6 resultswithin the time period is included. POC Potassium 2.8(LL) 3.5 - 5.3 mmol/L 10/26/2024 5:31 AM EDT [facility] Blood, Arterial 10/26/2024 5 :14 AM EDT 10/26/2024 5:31 AM EDT us Harvey Domínguez III, MD POINT OF CARE TEST ORDERABLES Final Result Performing Organization Address [facility] Co de Phone Number [facility] [address] [place] [address]. [address] * (ABNORMAL) POC PO2 (10/26/2024 5:14 AM EDT) Only the most recent of6 resultswithin the time period is included. POC pO2, Arterial 133(H) 80 - 100 mm Hg 10/26/2024 5:31 AM EDT [facility] Blood, Arterial 10/26/2024 5 :14 AM EDT 10/26/2024 5:31 AM EDT us Harvey Domínguez III, MD POINT OF CARE TEST ORDERABLES Final Result Performing Organization Address [facility] Co de Phone Number [facility] [address] [place] [address]. [address] * POC PCO2 (10/26/2024 5:14 AM EDT) Only the most recent of6 resultswithin the time period is included. POC pCO2, Arterial 45 35 - 45 mm Hg 10/26/2024 5:31 AM EDT [facility] Blood, Arterial 10/26/2024 5 :14 AM EDT 10/26/2024 5:31 AM EDT us Harvey Domínguez III, MD POINT OF CARE TEST ORDERABLES Final Result Performing Organization Address [facility] Co de Phone Number [facility] [address] [place] [address]. [address] * (ABNORMAL) POC O2 SAT (10/26/2024 5:14 AM EDT) Only the most recent of6 resultswithin the time period is included. POC O2 Saturation, Arterial 99(H) 95 - 98 % 10/26/2024 5:31 AM EDT [facility] Blood, Arterial 10/26/2024 5 :14 AM EDT 10/26/2024 5:31 AM EDT us Harvey Domínguez III, MD POINT OF CARE TEST ORDERABLES Final Result Performing Organization Address City/[facility] Co de Phone Number [facility] [address] [facility]. [address] * POC HCO3 (10/26/2024 5:14 AM EDT) Only the most recent of6 resultswithin the time period is included. POC HCO3, Arterial 22 22 - 26 mmol/L 10/26/2024 5:31 AM EDT [facility] Blood, Arterial 10/26/2024 5 :14 AM EDT 10/26/2024 5:31 AM EDT us Harvey Domínguez III, MD POINT OF CARE TEST ORDERABLES Final Result [facility] [address] [place] [facility]. [address] * POC Chloride (10/26/2024 5:14 AM EDT) Only the most recent of6 resultswithin the time period is included. POC Chloride 104 98 - 110 mmol/L 10/26/2024 5:31 AM EDT [facility] Blood, Arterial 10/26/2024 5 :14 AM EDT 10/26/2024 5:31 AM EDT us Harvey Domínguez III, MD POINT OF CARE TEST ORDERABLES Final Result [facility] [address] [facility] * (ABNORMAL) POC Base Excess (10/26/2024 5:14 AM EDT) Only the most recent of6 resultswithin the time period is included. POC Base Excess, Arterial -5(L) -2 - 3 mmol/L 10/26/2024 5:31 AM EDT [facility] Blood, Arterial 10/26/2024 5 :14 AM EDT 10/26/2024 5:31 AM EDT us Harvey Domínguez III, MD POINT OF CARE TEST ORDERABLES Final Result Performing Organization Address [facility] Co de Phone Number [facility] [address] * POC Anion Gap (10/26/2024 5:14 AM EDT) Only the most recent of6 resultswithin the time period is included. POC Anion Gap, Arterial 12 3 - 16 mmol/L 10/26/2024 5:31 AM EDT [facility] Blood, Arterial 10/26/2024 5 :14 AM EDT 10/26/2024 5:31 AM EDT Harvey Domínguez III, MD POINT OF CARE TEST ORDERABLES Final Result Performing Organization Address [facility] Co de Phone Number [facility] [address] [place] [facility]. [address] * POC Sample Type (10/26/2024 5:14 AM EDT) Only the most recent of6 resultswithin the time period is included. POC Sample Type Arterial 10/26/2024 5:31 AM EDT [facility] Blood, Arterial 10/26/2024 5 :14 AM EDT 10/26/2024 5:31 AM EDT Harvey Domínguez III, MD POINT OF CARE TEST ORDERABLES Final Result Performing Organization Address City/[facility] Co de Phone Number [facility] [address] [facility]. [address] * (ABNORMAL) POC pH (10/26/2024 5:14 AM EDT) Only the most recent of6 resultswithin the time period is included. POC pH, Arterial 7.29(L) 7.35 - 7.45 10/26/2024 5:31 AM EDT [facility] Blood, Arterial 10/26/2024 5 :14 AM EDT 10/26/2024 5:31 AM EDT us Harvey Domínguez III, MD POINT OF CARE TEST ORDERABLES Final Result Performing Organization Address [facility] Co de Phone Number [facility] [address] [place] [address]. [address] * (ABNORMAL) POC hematocrit (10/26/2024 5:14 AM EDT) Only the most recent of6 resultswithin the time period is included. POC Hematocrit 28.0(L) 40 - 52 % 10/26/2024 5:31 AM EDT [facility] Blood, Arterial 10/26/2024 5 :14 AM EDT 10/26/2024 5:31 AM EDT us Harvey Domínguez III, MD POINT OF CARE TEST ORDERABLES Final Result Performing Organization Address [facility] de Phone Number [facility] [address] [place] [address]. [address] * (ABNORMAL) POC Ionized Calcium (10/26/2024 5:14 AM EDT) Only the most recent of6 resultswithin the time period is included. POC Ionized Calcium 5.50(H) 4.50 - 5.30 mg/dL 10/26/2024 5:31 AM EDT [facility] Blood, Arterial 10/26/2024 5 :14 AM EDT 10/26/2024 5:31 AM EDT Harvey Domínguez III, MD POINT OF CARE TEST ORDERABLES Final Result Performing Organization Address City/[facility] Co de Phone Number [facility] [address] [place] [address]. [address] * (ABNORMAL) POC Glucose (10/26/2024 5:14 AM EDT) Only the most recent of6 resultswithin the time period is included. POC Glucose, Arterial 183(H) 70 - 100 mg/dL 10/26/2024 5:31 AM EDT [facility] Blood, Arterial 10/26/2024 5 :14 AM EDT 10/26/2024 5:31 AM EDT Harvey Domínguez III, MD POINT OF CARE TEST ORDERABLES Final Result [facility] [address] * (ABNORMAL) POC Hemoglobin (10/26/2024 5:14 AM EDT) Only the most recent of6 resultswithin the time period is included. POC Hemoglobin 9.5(L) 14.0 - 18.0 g/dL 10/26/2024 5:31 AM EDT [facility] Blood, Arterial 10/26/2024 5 :14 AM EDT 10/26/2024 5:31 AM EDT Harvey Domínguez III, MD POINT OF CARE TEST ORDERABLES Final Result [facility] [address] * (ABNORMAL) TEG-Global With Lysis (Baseline TEG with LY30, Will NOT Show Heparin Effect) (53:31 AM EDT) Citrated Kaolin Reaction Time (TEGLYSIS) 6.8 4.6 - 9.1 minutes 10/26/2024 5:02 AM EDT [facility] Citrated Rapid Teg Maximum Amplitude (TEGLYSIS) <40.0(L) 52.0 - 70.0 mm 10/26/2024 5:02 AM EDT [facility] Citrated Functional Fibrinogen Maximum Amplitude (TEGLYSIS) <4.0(L) 15.0 - 32.0 mm 10/26/2024 5:02 AM EDT [facility] Citrated Kaolin Percent Lysis (TEGLYSIS) 1.4 0.0 - 2.6 % 10/26/2024 5:02 AM EDT [facility] Whole Blood (Citrate) 10/26/2024 3:31 AM EDT 10/26/2024 3:40 AM EDT us Eber Quinones MD LAB BLOOD ORDERABLES Fin al Result [facility] [address] [place] [id number], [facility] * CENTRAL LINE SINGLE LUMEN PERFORMABLE (10/25/2024 11:13 PM EDT) Ben Pope MD - 10/25/2024 11:13 PM EDT Ben Blake MD 10/26/2024 7:45 PM Lula Emily Cath Date/Time: 10/25/2024 11:13 PM Performed [...] IgM) Nonreactive 10/25/2024 11:13 PM EDT [facility] Serum 10/25/2024 10:1 7 PM EDT 10/25/2024 10:17 PM EDT Narrative [facility] - 10/25/2024 11:13 PM EDT HAV antibodies not detected Aysha Gill MD LAB BLOOD ORDERABLES F inal Result Performing Organization Address [facility] Co de Phone Number [facility] [address] [place] [address]. [address] * Iron Studies (Iron + TIBC) (10/25/2024 10:17 PM EDT) Pathologist [facility] Iron 128 50 - 212 ug/dL 10/25/2024 10:44 PM EDT [facility] % Iron Saturation SEE COMMENT 15.0 - 55.0 % 10/25/2024 10:44 PM EDT [facility] Comment:Unable to calculate result because contributing result outside reportable range.. TIBC SEE COMMENT 261 - 462 ug/dL 10/25/2024 10:44 PM EDT [facility] Comment:Unable to calculate result because contributing result outside reportable range.. Serum 10/25/2024 10:1 7 PM EDT 10/25/2024 10:17 PM EDT Aysha Gill MD LAB BLOOD ORDERABLES F inal Result Performing Organization Address [facility] Co de Phone Number [facility] [address] [facility] * Hepatitis B Core Antibody (10/25/2024 10:17 PM EDT) Hep B Core Total Ab Nonreactive Nonreactive 10/25/2024 11:07 PM EDT [facility] Comment:Health Department no tified in accordance with reportable infectious disease guidelines. Serum 10/25/2024 10:1 7 PM EDT 10/25/2024 10:17 PM EDT [facility] - 10/25/2024 11:07 PM EDT A nonreactive final interpretation indicates that anti-HBc antibodies were not detected in the sample; it is possible that the individual is not infected with HBV. us Aysha Gill MD LAB BLOOD ORDERABLES F inal Result Performing Organization Address City/[facility]/ZIP Co de Phone Number [facility] [address] [place] [address]. [address] * Hepatitis C Antibody (10/25/2024 10:17 PM EDT) HCV Ab Nonreactive Nonreactive 10/25/2024 11:16 PM EDT [facility] Comment:Health Department no tified in accordance with reportable infectious disease guidelines. Serum 10/25/2024 10:1 7 PM EDT 10/25/2024 10:17 PM EDT [facility] - 10/25/2024 11:16 PM EDT Antibodies to HCV not detected; does not exclude the possibility of exposure to HCV. us Aysha Gill MD LAB BLOOD ORDERABLES F inal Result Performing Organization Address City/[facility]/ZIP Co de Phone Number [facility] [address] [facility] * HIV 1+2 Antibody/Antigen with Reflex (10/25/2024 10:17 PM EDT) HIV 1+2 AB/AGN Nonreactive Nonreactive 10/25/2024 11:03 PM EDT [facility] Serum 10/25/2024 10:1 7 PM EDT 10/25/2024 10:16 PM EDT [facility] - 10/25/2024 11:03 PM EDT \HIVRNR us Aysha Gill MD LAB BLOOD ORDERABLES F inal Result Performing Organization Address City/[facility]/ZIP Co de Phone Number [facility] [address] [facility] * (ABNORMAL) Hepatitis B Surface Antibody, Quantitati (10/25/2024 10:17 PM EDT) HBSAB NUMBER 10.70(H) 0.00 - 9.99 mIU/mL 10/25/2024 11:52 PM EDT [facility] Hep B S Ab Equivocal (A) Nonreactive 10/25/2024 11:52 PM EDT [facility] Serum 10/25/2024 10:1 7 PM EDT 10/25/2024 10:17 PM EDT us Aysha Gill MD LAB BLOOD ORDERABLES F inal Result Performing Organization Address [facility] Co de Phone Number [facility] [address] [facility] * Hepatitis B surface antigen (10/25/2024 10:17 PM EDT) Hep B Surface Ag Nonreactive Nonreactive 10/25/2024 11:12 PM EDT [facility] Comment:Health Department no tified in accordance with reportable infectious disease guidelines. Serum 10/25/2024 10:1 7 PM EDT 10/25/2024 10:17 PM EDT Narrative [facility] - 10/25/2024 11:12 PM EDT Specimen is considered negative for HBsAg. us Aysha Gill MD LAB BLOOD ORDERABLES F inal Result Performing Organization Address City/[facility] Co de Phone Number [facility] [address] [facility] * (ABNORMAL) APTT, NO ANTICOAGULANT (10/25/2024 10:17 PM EDT) aPTT 41.7(H) 25.5 - 35.0 seconds 10/25/2024 10:36 PM EDT [facility] Plasma 10/25/2024 10:1 7 PM EDT 10/25/2024 10:17 PM EDT us Aysha Gill MD LAB BLOOD ORDERABLES F inal Result Performing Organization Address City/[facility]/ZIP Co de Phone Number [facility] [address] [facility] * PTH (10/25/2024 10:17 PM EDT) PTH 36.0 12.0 - 88.0 pg/mL 10/25/2024 11:01 PM EDT [facility] Serum 10/25/2024 10:1 7 PM EDT 10/25/2024 10:17 PM EDT us Aysha Gill MD LAB BLOOD ORDERABLES F inal Result Performing Organization Address [facility]/ZIP Co de Phone Number [facility] [address] [facility] * (ABNORMAL) Ferritin (10/25/2024 10:17 PM EDT) Ferritin 623.2(H) 23.9 - 336.2 ng/mL 10/25/2024 11:02 PM EDT [facility] Serum 10/25/2024 10:1 7 PM EDT 10/25/2024 10:17 PM EDT us Aysha Gill MD LAB BLOOD ORDERABLES F inal Result Performing Organization Address City/[facility]/ZIP Co de Phone Number [facility] [address] [facility] * (ABNORMAL) Venous Blood Gas, Line/Syringe (10/25/2024 10:00 PM EDT) PH-Line Draw 7.38 7.32 - 7.42 10/25/2024 10:08 PM EDT [facility] PCO2-Line Draw 33(L) 41 - 51 mm Hg 10/25/2024 10:08 PM EDT [facility] PO2-Line Draw 33 25 - 40 mm Hg 10/25/2024 10:08 PM EDT [facility] HCO3-Line Draw 20(L) 24 - 28 mmol/L 10/25/2024 10:08 PM EDT [facility] CO2 Content-Line Draw 21(L) 25 - 29 mmol/L 10/25/2024 10:08 PM EDT [facility] Base Excess-Line Draw -5.0(L) -2.0 - 3.0 mmol/L 10/25/2024 10:08 PM EDT [facility] %HBO2-Line Draw 53.8 40.0 - 70.0 % 10/25/2024 10:08 PM EDT [facility] Carboxyhgb-Ludivina e Draw 1.9 % 10/25/2024 10:08 PM EDT [facility] Comment: CARBOXYHEMOGLOBIN (CO) REFERENCE RANGES: Non-Smokers: <2 % Smokers: <8 % TOXIC: >20 % Methemoglobin- Line Draw 0.2 0.0 - 1.5 % 10/25/2024 10:08 PM EDT [facility] Reduced Hemoglobin-Ludivina e Draw 44.1(H) 0.0 - 5.0 % 10/25/2024 10:08 PM EDT [facility] Venous, Line Draw 10/25/2024 10:00 PM EDT 10/25/2024 10:04 PM EDT us Aysha Gill MD LAB BLOOD ORDERABLES F inal Result Performing Organization Address City/State/[facility] Co de Phone Number [facility] [address] [place], [place] [address] * Donor Specific Antibody (DSA) (10/25/2024 10:00 PM EDT) AntiDonor Antibodies The request and specimen(s) for this test have been received and transported to the [facility] [place] at [address] [place] [address]. The [facility] will report results directly to the client. 10/25/2024 10:20 PM EDT [facility] Comment:Testing performed by [facility], [facility], [address] [place] [address] [facility] report has been forwarded to the appropriate ordering location. Please refer to this report for patient results. Serum 10/25/2024 10:0 0 PM EDT 10/25/2024 10:20 PM EDT Aysha Gill MD LAB BLOOD ORDERABLES F inal Result Performing Organization Address [facility] Co de Phone Number [facility] [address] [facility] * Hepatitis C RNA, Quant Reflex to Genotyp (10/25/2024 8:18 PM EDT) Pathologist [facility] Units Not Detected IU/mL 10/27/2024 11:03 AM EDT [facility] Comment:Test methodology for HCV RNA quantification is an FDA-approved nucleic acid amplification assay. The Lower Limit of Quantitation (LLOQ) is 15 IU/mL. The linear range of the assay is 15-100,000,000 IU/mL. The Limit of Detection (LoD) is 12.0 IU/mL for EDTA plasma. The reference range is Not Detected. IU log10 See Note log 10 IU/mL 10/27/2024 11:03 AM EDT [facility] Comment:HCV RNA not detected . Plasma 10/25/2024 8:18 PM EDT 10/25/2024 10:27 PM EDT Aysha Gill MD LAB BLOOD ORDERABLES F inal Result Performing Organization Address [facility] Co de Phone Number [facility] [address] [place] [address], [facility] * Toxoplasma gondii antibody, IgG (10/25/2024 8:18 PM EDT) [facility] Toxoplasma Gondii IgG <3.0 0.0 - 7.1 IU/mL 10/27/2024 7:55 AM EDT [facility] Comment: Negative <7.2 Equivocal 7.2 - 8.7 Positive >8.7 Serum 10/25/2024 8:18 PM EDT 10/27/2024 8:06 AM EDT Narrative [facility] - 10/27/2024 8:06 AM EDT PERFORMED AT: [facility] [id number] BUSINESS DEVELOPMENT CONSULTANT: Bassam Khalil, PhD PHONE: [phone] Aysha Gill MD LAB BLOOD ORDERABLES F inal Result [facility] [address] [facility] * ABO/Rh (10/25/2024 7:46 PM EDT) Only the most recent of2 resultswithin the time period is included. ABO Grouping O 10/25/2024 10:23 PM EDT [facility] Rh Type Positive 10/25/2024 10:23 PM EDT [facility] Blood 10/25/2024 7:46 PM EDT 10/25/2024 9:54 PM EDT Ben Blake MD BLOOD BANK TEST ORDERABLES Fi nal Result Performing Organization Address [facility] Co de Phone Number [facility] [address] [place] [address]. [address] * Antibody Screen (10/25/2024 7:46 PM EDT) Only the most recent of2 resultswithin the time period is included. Antibody Screen Negative 10/25/2024 10:41 PM EDT [facility] Blood 10/25/2024 7:46 PM EDT 10/25/2024 9:54 PM EDT Narrative [facility] - 10/25/2024 10:44 PM EDT Testing performed by [facility] Transfusion Service Ben Blake MD BLOOD BANK TEST ORDERABLES Fi nal Result Performing Organization Address City/[facility]/ZIP Co de Phone Number [facility] [address] [place] [address], [facility] * Hox - HLA Antibody-Detailed Report (10/22/2024 12:32 PM EDT) 10/22/2024 12:3 2 PM EDT us Abdulkadir Gaspar MD LAB BLOOD ORDERABLES Final Resul t Performing Organization Address [facility] Co de Phone Number [facility] [address] [place] [address]. [place] [address] * HOX - HLA CROSSMATCH + Detailed Antibody (10/20/2024 5:04 PM EDT) 10/20/2024 5:04 PM EDT us Abdulkadir Gaspar MD LAB BLOOD ORDERABLES Final Resul t Performing Organization Address [facility] de Phone Number [facility] [address] [place] [address]. [place] [address] * Hox - ABO Typing Report (10/20/2024 5:03 PM EDT) 10/20/2024 5:03 PM EDT us Abdulkadir Gaspar MD LAB BLOOD ORDERABLES Final Resul t Performing Organization Address [facility] de Phone Number [facility] [address] [place] [address]. [place] [address] * X-ray Comparison Images (10/20/2024 9:10 AM EDT) Only the most recent of7 resultswithin the time period is included. Narrative EXTERNAL - 10/20/2024 9:10 AM EDT Images associated with this accession number were presented to us for comparison to an examination performed here. us Provider Not In System IMG DIAGNOSTIC IMAGING OR DERABLES Final Result Performing Organization Address [facility] Co de Phone Number EXTERNAL * PRA-HLA Ab Screen (Cytotoxic) (10/15/2024 6:08 AM EDT) [facility] The request and specimen(s) for this test have been received and transported to the [facility] at [address] [place] [address]. [address] [facility] [place] will report results directly to the client. 10/15/2024 6:42 AM EDT HEALTH LAB Comment:The request and spec imen(s) for this test have been received and transported to the [facility] [place] at [address] [place] [address] [facility] [place] will report results directly to the client. Serum 10/15/2024 6:08 AM EDT 10/15/2024 6:42 AM EDT us Cosmo Pacheco MD LAB BLOOD ORDERABLES Final Resul t [facility] [address] [place] [address], [facility] * LEFT HEART CATH (10/14/2024 2:09 PM EDT) 10/14/2024 11:4 7 AM EDT Narrative [facility] - 10/14/2024 9:27 PM EDT *[facility]* Cardiac Cone Tender [address] [place] [address] CATHETERIZATION LAB STUDY Patient: Blair Anderson Age: [...] manner. 3. Right radial artery access. A [id number] Glidesheath - Slender - .021 sheath was [...] + !LV pressure s/d, ed !, 22, dP/rw=6189mf Hg/s! + + + !Aortic pressure s/d (m)!106/58 (75) ! + + + ATTESTATION: Dr. Matta was present for the entire procedure. Dr. Jay Quan was the initial author of this report. Prepared and electronically signed by Irving Matta MD [id number] Procedure Note Irving Matta MD - 10/14/2024 *[facility]* Cardiac Cone Tender [address] [place], [place] [address] CATHETERIZATION LAB STUDY Patient: Blair Anderson Age: [...] manner. 3. Right radial artery access. A [id number] Glidesheath - Slender - .021sheath was advanced [...] complications. Contrast: Omnipaque 350 25ml (total dose). [id number] 125ml (wasted). Radiation: Fluoroscopy time: 15min. Total [...] + + !LV pressure s/d, ed !, dP/eb=9502jg Hg/s! + + + !Aortic pressure s/d (m)!106/58 (75) ! + + + ATTESTATION: Dr. Matta was present for the entire procedure. Dr. Jay Quan wasthe initial author of this report. Prepared and electronically signed by Irving Matta MD [id number]:27:50 [place] [id number] Final Result [facility] * Cardiac Cath Documents Scan (10/14/2024 2:06 AM EDT) us Scanning Uchhim SCAN DOCS - NO RESULTS Final Res ult * TSH (Thyroid Stimulating Hormone) (10/07/2024 6:37 PM EDT) TSH 0.81 0.45 - 4.12 uIU/mL 10/07/2024 8:17 PM EDT [facility] Serum 10/07/2024 6:37 PM EDT 10/07/2024 6:50 PM EDT us Gerri Peterson MD LAB BLOOD ORDERABLES Final Resu lt [facility] [address] 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, VRE- urine 10/31/2024 06/2 08/2024 Insurance [facility] [employer] Member Subscriber Plan / Payer (Ef fective 2015-Present) Name:Blair Anderson Relation to Subscriber:Self Name:Blair Anderson Payer ID:[id number] (NAIC) Type:Not on file Address: [address] [facility] [employer] Member Subscriber Plan / Payer (Ef fective 2015-Present) Name:Blair Anderson Relation to Subscriber:Self Name:Blair Anderson Payer ID:[id number] (NAIC) Type:Not on file Address: [place] [phone] [employer] Member Subscriber Plan / Payer (Ef fective 2024-2025) Name:Blair Anderson Relation to Subscriber:Self Name:Blair Anderson Payer ID:[id number] Group ID:Not on file Type:Transplant Address: [address] [place] [address] Advance Directives For more information, please contact: [phone] * Full Code (Latest Code Status on [...] 9:55 PM 08/19/2024 4:56 PM Care Teams Precision Dyer Relationship Specialty Start Date End Date Enedina Mcguire NP [address] [place] [address] PCP - General Internal Medicine 10/05/24 Maureen Pantoja, ЮЛИЯ Txp Post Coordinator Transplant Hepatology 10/28/24
[2025-01-14 10:57] LABS: Microscopic, Urine URINE MICROSCOPIC (MICROSCOPIC)
--- OUTSIDE RECORDS SUMMARY | 2025-01-14 10:57 | XMS_ITS | Encounter Summary ---
Author Organization [facility] Address [address] [place] [address] Care Team Providers Care Grapple Yarder Operator Name Role Phone Enedina Mcguire NP Primary Care Provider + [phone] Maureen Pantoja RN Unavailable Unavail able Source [...] release of HIV test results or diagnoses. [id number] Reason for Visit * Reason Comments Results Encounter Details Date Type Department Care Team (Riky st Contact Info) Description 01/05/2025 Telephone [facility] Liver Transplant at [address] [phone] Maureen Pantoja, RN Results Social [...] In the past 12 months has e [email or web address], gas, oil, or water [employer] threatened to shut off services in your [...] documented as of this encounter Care Teams Grapple Yarder Operator Relationship Specialty Start Date End Date Enedina Mcguire NP [address] [place] [address] PCP - General Internal Medicine 10/05/24 Maureen Pantoja, ЮЛИЯ Txp Post Coordinator Transplant Hepatology 10/28/24 documented as of this encounter
--- OUTSIDE RECORDS SUMMARY | 2025-01-14 10:57 | XMS_ITS ---
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
--- OUTSIDE RECORDS SUMMARY | 2025-01-14 10:57 | XMS_ITS | Encounter Summary ---
Author Organization [facility] Address [address] [place] [address] Care Team Providers Care Geometrician Name Role Phone Enedina Mcguire NP Primary Care Provider + [phone] Maureen Pantoja RN Unavailable Unavail able Source [...] release of HIV test results or diagnoses. [id number] Health Encounter Details Date Type Department Care Team (Late st Contact Info) Description 11/18/[address] [facility] [place] [facility] Liver Transplant at [address] [place] [phone] Marlene Ro MA Social History Tobacco Use [...] Recorded In the past 12 months has [employer], gas, oil, or water [employer] threatened to shut off services in your [...] EGFR (11/13/2024 8:44 AM EDT) Pathologist [facility] Glucose 108 mg/dL BUN 25(A) 4 - [...] 5.0 g/dL Blood Narrative Resulting Agency Comment [facility] us Historical Provider LAB BLOOD ORDERABLES Denisse l Result * Tacrolimus level (11/13/2024 8:44 AM EDT) Pathologist [facility] Tacrolimus Lvl 10.9 6 - 15 ng/mL Whole Blood Narrative Resulting Agency Comment [facility] Historical Provider LAB BLOOD ORDERABLES Denisse l Result * (ABNORMAL) CBC and differential (11/13/2024 8:44 AM EDT) Pathologist [facility] Hemoglobin 9.8(A) [...] 5.7 10^3/mL Blood Narrative Resulting Agency Comment [facility] Historical Provider LAB BLOOD ORDERABLES Denisse l Result * (ABNORMAL) Hepatic Function Panel (11/13/2024 8:44 AM EDT) Bilirubin, Direct 0.6 Bilirubin, Indirect 0.2 Alkaline Phosphatase 137 U/L ALT 29 U/L AST 20 U/L Total Bilirubin 0.8 0.1 - 1.4 mg/dL Total Protein 5.8(A) 6.4 - 8.2 g/dL Plasma Narrative Resulting Agency Comment 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
--- OUTSIDE RECORDS SUMMARY | 2025-01-14 10:57 | XMS_ITS | Encounter Summary ---
Author Organization [facility] Address [address] [place] [address] Care Team Providers Care Back Winder Name Role Phone Enedina Mcguire NP Primary Care Provider + [phone] Maureen Pantoja RN Unavailable Unavail able Source [...] release of HIV test results or diagnoses. [id number] Health Encounter Details Date Type Department Care Team (Late st Contact Info) Description 12/31/2024 Chart Note [facility] Liver Transplant at [address] [place] [phone] Marlene Ro MA 12/31 Labs entered from [facility] Social History Tobacco Use Types Packs/Day Years Used Date Smoking Tobacco: Former Cigarettes Smokeless Tobacco: Current Alcohol Use Standard Drinks/Week Comments Yes 0 (1 standard drink = 0.6 oz pure alcohol) History of alcohol abuse, reports no use in 3 week- typically endorses use as 4 glasses of wine a days Utilities Answer Date Recorded In the past 12 months has [employer], gas, oil, or water [employer] threatened to shut off services in [...] 11:59 AM EDT 12/31 Labs entered from [facility] documented in this encounter Plan [...] Quant PCR PL Negative Plasma Result [facility] LAB BLOOD ORDERABLES Denisse l Result * (ABNORMAL) Magnesium (12/31/2024 9:41 AM EDT) Magnesium 1.2(A) 1.6 - 2.4 mg/dL Plasma Narrative Resulting Agency Comment [facility] Result [facility] LAB BLOOD ORDERABLES Denisse l Result * Hepatic Function Panel (12/31/2024 9:41 AM EDT) Bilirubin, Direct 0.1 Bilirubin, Indirect 0.4 Alkaline Phosphatase 66 ALT 14 AST 22 Total Bilirubin 0.5 Total Protein 6.4 Plasma Narrative Resulting Agency Comment [facility] Result [facility] LAB BLOOD ORDERABLES Denisse l Result * (ABNORMAL) Renal Function Panel w/o EGFR (12/31/2024 9:41 AM EDT) Glucose 91 BUN 18 CO2 26(A) 13 - 22 mmol/L Creatinine 0.90 Potassium 4.2 Sodium 141 Chloride 105 Phosphorus 4.8 2.5 - 4.9 mg/dL Calcium 9.5 EGFR 113 mg/dL Albumin 4.5 3.5 - 5.0 g/dL Blood Narrative Resulting Agency Comment [facility] Result [facility] LAB BLOOD ORDERABLES Denisse l Result * Creatinine, urine, random (12/31/2024 9:41 AM EDT) Creatinine, Urine 57 Urine Narrative Resulting Agency Comment [facility] Provider Result Type Result [facility] URINE ORDERABLES Final Re sult * Urinalysis w/Rfl to Microscopic (12/31/2024 9:41 AM EDT) Glucose, UA Negative Negative Ketones, UA Negative Negative Blood, UA Negative Negative Bilirubin, UA Negative Negative Urobilinogen, UA Normal Normal Protein, UA Negative Negative pH, UA 5.5 4.5 - 8.0 Specific [place], UA 1.025 1.005 - 1.030 Clarity, UA Clear Clear Color, UA Yellow Light Yellow, Yellow Urine Narrative Resulting Agency Comment [facility] Provider URINE ORDERABLES Final Re [...] 3.0 10^3/mL Blood Narrative Resulting Agency Comment [facility] Result [facility] Provider LAB BLOOD ORDERABLES Denisse l Result * Urine Protein, Tot, Random (w/o Creat) (12/31/2024 9:41 AM EDT) Total Protein, Ur 17.0 Urine Narrative Resulting Agency Comment [facility] Result [facility] Historical Provider URINE ORDERABLES Final Re sult documented in this encounter Visit Diagnoses Not on filedocumented in this encounter Additional Health Concerns Infection Onset Date Last Indicated Resolved Time 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
--- OUTSIDE RECORDS SUMMARY | 2025-01-14 10:57 | XMS_ITS ---
Author Organization [facility] Address [address] [place] [address] Care Team Providers Care Poultry Farmer Egg Name Role Phone Enedina Mcguire NP Primary Care Provider + [phone] Maureen Pantoja RN Unavailable Unavail able Transplant Episode Liver Recipient [facility] ([place], [place]) - [facility] Organ Received: Liver Transplanted on 10/26/2024 Marked as Active Follow-up on 10/26/2024 Liver CoordinatorMaureen Pantoja RN Phone: N/A Fax: N/A Email: N/A Ak Chin Organ Diagnosis Organ Primary Contributory Liver Alcohol-Associated [...] N/A N/A Chris Orosco MD Referring Physician [phone] N/A Maureen Leeanna Pantoja, RN Txp Post Coordinator N/A N/A N/A NUBIA Barros Txp Health Care Recruiter N/A N/A N/A Harvey Domínguez III, MD Txp Surgeon [phone] N/A Mary Butler RN Txp Pre Coordinator N/A N/A N/A Events Post-Transplant Pre-Transplant Admitted: 10/25/2024 Referred: 08/13/2024 Transplanted: 10/26/2024 Evaluation began: Discharged: 11/02/2024 Committee: 10/14/2024 Center waitlisted: Pending Checklist Tasks (Due on or before 02/13/2025) Name Due Date Attached Appoint ment Social Work Consult 01/05/2025 Appointments (12/14/2024 - 02/13/2025) When With Visit Type Description 01/06/2025 Txp Hep - Paci, P Established Patient S/P liver transplant (CMS-HCC) (Primary Dx); Immunosuppression ([facility]-HCC); Kidney transplant recipient; Alcohol use disorder 01/06/2025 Txp Hep - Larry, S Established Patient Kidney transplant recipient (Primary Dx); Hypomagnesemia; Hyperphosphatemia; Immunosuppression (CMS-HCC); Viral disease exposure; Hypertension, unspecified type
--- OUTSIDE RECORDS SUMMARY | 2025-01-14 10:57 | XMS_ITS | Encounter Summary ---
Author Organization [facility] Address [address] [place] [address] Care Team Providers Care Rate Clerk Passenger Name Role Phone Enedina Mcguire NP Primary Care Provider + [phone] Maureen Pantoja RN Unavailable Unavail able Source [...] release of HIV test results or diagnoses. [id number] Reason for Visit * Reason Comments Results Encounter Details Date Type Department Care Team (Riky st Contact Info) Description 11/18/2024 Telephone [facility] Liver Transplant at [address] [address] Maureen Pantoja, RN Results Social [...] In the past 12 months has e [employer], gas, oil, or water [employer] threatened to shut off services in [...] as of this encounter Care Teams Rate Clerk Passenger Relationship Specialty Start Date End Date Enedina Mcguire NP [address] [place] [address] PCP - General Internal Medicine 10/05/24 Maureen Pantoja, RN Txp Post Coordinator Transplant Hepatology 10/28/24 documented as of this encounter
[2025-01-14 11:15] LABS: Hematocrit 34.6 % (42.0-52.0); Hemoglobin 12.2 g/dL (14.1-18.0); Immature Granulocytes % 1.5 %; Mean Corpuscular HGB Conc 35.3 g/dL (31.8-35.4); Mean Corpuscular Hemoglobin 32.6 pg (27.0-31.2); Mean Corpuscular Volume 92.5 fl (80-94); Nucleated Red Blood Cells % 0 %; Platelet Count 127 K/mm3 (142-424); Red Blood Count 3.74 M/mm3 (4.60-6.20); Red Cell Distribution Width-SD 48.2 fL; White Blood Count 2.0 K/mm3 (4.8-10.8)
[2025-01-14 11:51] LABS: Bilirubin,Urine Negative (Negative); Color,Urine YELLOW (Yellow); Glucose,Urine (UA) Negative (Negative); Ketones,Urine Negative (Negative); Leukocyte Esterase,Urine Negative (Negative); PH,Urine 5.5 (5.0-8.5); Protein,Urine Negative (Negative); Specific Gravity, Urine 1.020 (1.005-1.030); Urobilinogen,Urine 0.2 EU/dl (0.2)
[2025-01-14 11:58] LABS: Amorphous Sediment,Urine Trace /lpf; Bacteria,Urine Trace /lpf; RBC,Urine Occasional #/hpf (0-3); Squamous Epithelial Cell,Urine Occasional #/hpf (0-5); WBC,Urine Occasional #/hpf (0-3)
[2025-01-14 12:23] LABS: Total Cells Counted 50
[2025-01-14 12:24] LABS: RBC Morphology Normal
[2025-01-14 12:28] LABS: Albumin Level 4.8 g/dl (3.5-5.0); Chloride 109 mmol/L (98-107)
[2025-01-14 12:29] LABS: Potassium 4.4 mmoL/L (3.5-5.1); Sodium 140 mmol/L (136-145)
[2025-01-14 12:31] LABS: Anion Gap 14.4 mEq/L (5-15); Bilirubin,Unconjugated 0.6 mg/dL (0.0-1.1); Blood Urea Nitrogen 19 mg/dl (9-20); Carbon Dioxide 21 mmol/L (22.0-30.0); Creatinine,Serum 1.00 mg/dl (0.66-1.25); Estimated Glomerular Filt Rate 82 ml/min (>60); GFR (African American) 100 ML/MIN (>60); Total Protein,Serum 6.8 g/dl (6.3-8.2)
[2025-01-14 12:32] LABS: Alanine Aminotransferase 15 U/L (12-78); Alkaline Phosphatase 49 U/L (38-126); Aspartate Amino Transferase 24 U/L (17-59); Bilirubin,Direct 0.2 mg/dl (0.0-0.4); Bilirubin,Indirect 0.5 mg/dL (0.0-0.9); Bilirubin,Total 0.7 mg/dl (0.2-1.3); Calcium 9.5 mg/dl (8.4-10.2); Glucose 94 mg/dl (74-100); Magnesium 1.2 mg/dl (1.6-2.3); Phosphorous 4.8 mg/dl (2.5-4.5)
[2025-01-18 00:10] LABS: Tacrolimus (FK506), Blood 9.6 ng/mL (5.0-20.0)
[2025-01-23 05:48] LABS: Phosphatidylethanol (PEth) POSITIVE
== END 2025-01-14 23:59 | disposition home or self-care (01) ==
LOC: LAB 10:43
PROVIDERS: PCP Nurse Practitioner Family; Visit Provider Surgery
DX: K74.60 Unspecified cirrhosis of liver (principal); R18.8 Other ascites; Z94.4 Liver transplant status; Z79.60 Long term (current) use of unspecified immunomodulators and immunosuppressants
CPT/HCPCS: 36415; 80069; 80076; 80197; 80321; 81001; 82570; 83735; 84156; 85007; 85025; 85027; 87081; 87086; 87088; 87186

== ENCOUNTER 2025-01-20 11:50 | Outpatient (CLI) | payer OTHER, SELFPAY ==
--- OUTSIDE RECORDS SUMMARY | 2024-11-04 08:40 | XMS_ITS | Encounter Summary ---
Author Organization [facility] Address [address] [place] [address] Care Team Providers Care Risk Management Internship Name Role Phone Enedina Mcguire NP Primary Care Provider + [phone] Maureen Pantoja RN Unavailable Unavail able Source [...] release of HIV test results or diagnoses. [id number] Reason for Visit * Reason Comments Liver Transplant Follow-up Encounter Details Date Type Department Care Team (Late st Contact Info) Description 11/04/2024 8:40 AM EDT Office Visit [facility] Liver Transplant at [address] [address] Cosmo Pacheco MD [address] [place] [address] Liver/[place] [address] Liver transplant recipient (CMS-HCC) (Primary [...] the past 12 months has th e [employer], gas, oil, or water company threatened to [...] B Donor HCV Serologies: Anti-HCV Negative, HCV KAINA Negative Donor HBV Serologies: HBcAb Negative, HBV [...] Nutrition: patient continues close f/u w/ transplant any commodity sales deliverer. - Bone health: Vit D level to be drawn ~POD#90. - Labs: Labs (CBC w/ diff, renal panel, liver panel, tacro level) twice a week. Lipid panel, [id number] Vit D level to be drawn at [...] management for this patient. Cosmo Pacheco MD Head Stock Operator of Transplant Surgery [phone] (m) [1] Allergies Allergen Reactions Adhesive Itching [...] encounter Visit Diagnoses Diagnosis Liver transplant recipient ([facility])- Primary Alcoholic cirrhosis of liver with ascites ([facility]) Kidney transplant recipient Acute kidney injury superimposed on CKD ([facility]) CKD (chronic kidney disease) stage 4, GFR 15-29 ml/min ([facility]) Chronic kidney disease, Stage IV (severe) Immunosuppressive management encounter following liver transplant ([facility]) Abdominal pain, unspecified abdominal location documented in this encounter Additional Health Concerns Infection Onset Date Last Indicated Resolved Time 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
--- OUTSIDE RECORDS SUMMARY | 2024-11-25 09:00 | XMS_ITS | Encounter Summary ---
Author Organization [facility] Address [address] [place] [address] Care Team Providers Care Acoustical Material Worker Name Role Phone Enedina Mcguire NP Primary Care Provider + [phone] Maureen Pantoja RN Unavailable Unavail able Source [...] release of HIV test results or diagnoses. [id number] Health Encounter Details Date Type Department Care Team (Late st Contact Info) Description 11/25/2024 9:00 AM EDT Procedure visit [facility] Urology at [place] [facility] [address] [facility] [address] [place] [address] Julieta Rogers PA 222 [facility] [address] [place] [address] Retained ureteral stent of transplanted kidney ([facility]-HCC) (Primary Dx) Social History Tobacco Use Types [...] past 12 months has th e [employer], [employer], [employer], or [employer] threatened to shut off services in your [...] used for procedure: Flex Uro Loaner 12 [facility] Urology Flexible Cystoscope Log Cystoscope Label Serial Number Model Flex Uro 1 [id number] Olympus CYF-VHR Flex Uro 2 7887941 Olympus CYF Type V2R Flex Uro 3 3899202 Olympus CYF Type V2R Flex Uro 4 8387440 Olympus CYF Type V2R Flex Uro 5 6484412 Olympus CYF Type V2R Flex Uro 6 8030329 Olympus CYF Type V2R Flex Uro 7 1958176 CYF VHR Flex Uro 8 5300303 CYF VHR Flex Uro 9 3934579 CYF VHR Flex Uro 10 3050591 CYF VHR Flex Uro 11 0803103 CYF VHR Flex Uro 12 0352515 CYF VHR Uro Loaner 12 [id number] CYF VHR Uro Loaner 13 [id number] CYF VHR Uro Loaner 14 [id number] CYF VHR * NAA Merida - 11/25/2024 [...] mL 10 mL, Mucous Membrane, Once, On 11/25/24 at 0900, For 1 doseIndications:Retained ureteral stent of transplanted kidney (CMS-HCC) Given 11/25/2024 9:19 AM EDT 10 mLs documented in this encounter Additional Health Concerns Infection Onset Date Last Indicated Resolved Time 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
--- OUTSIDE RECORDS SUMMARY | 2024-11-25 10:20 | XMS_ITS | Encounter Summary ---
Author Organization [facility] Address [address] [place] [address] Care Team Providers Care Advanced Quality Engineer Name Role Phone Enedina Mcguire NP Primary Care Provider [phone] Alicia Rankin RN Unavailable Unavail able Source [...] release of HIV test results or diagnoses. 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 - Bone health: Vit D level to be drawn ~POD#90. - Labs: Labs (CBC w/ diff, renal panel, liver panel, tacro level) twice a week. Lipid panel, [id number] Vit D level to be drawn at POD#90, HgbA1C and Vit D level to be drawn at POD#180. - Follow up: RTC 2 weeks Trinidad Godinez MD, Fellow, Multiorgan Abdominal Transplant Surgery. [facility]. [1] Allergies Allergen Reactions Adhesive Itching and [...] per week. Follow up in 2 weeks. Nathalie out today. Stop fluconazole, eliquis, and torsemide. [...] monitoring- Primary S/P liver transplant ([facility]) Hypomagnesemia Disorders of magnesium metabolism Kidney transplant [...] documented as of this encounter Care Teams Advanced Quality Engineer Relationship Specialty Start Date End Date Enedina Mcguire NP [address] [place] [address] PCP - General Internal Medicine 10/05/24 Alicia Rankin, ЮЛИЯ Txp Post Coordinator Transplant Hepatology 10/28/24 documented as of this encounter
--- OUTSIDE RECORDS SUMMARY | 2024-11-25 10:50 | XMS_ITS | Encounter Summary ---
Author Organization [facility] Address [address] [place] [address] Care Team Providers Care Christmas Tree Farm Crew Boss Name Role Phone Enedina Mcguire NP Primary Care Provider [phone] Maureen Pantoja RN Unavailable Unavail able Source [...] release of HIV test results or diagnoses. [id number] Reason for Visit * Reason Comments Liver Transplant Follow-up Encounter Details Date Type Department Care Team (Late st Contact Info) Description 11/25/2024 10:50 AM EDT Office Visit [facility] Liver Transplant at [place] [address] [address] [place] [address] Leisa Juarez MD [address] [place] [address] [address] Floor [place] [address] Seble Colon [facility] [address] [place] [address] NADIYA (acute kidney injury) ([facility]) (Primary Dx); Kidney replaced by transplant; [...] the past 12 months has th e [employer], [employer], oil, or water company threatened to shut [...] Hypertension Other hyperlipidemia 07/26/2024 Renal cell carcinoma ([facility]) Thrombocytopenia ([facility]) Thyroid disease Surgical History: Past Surgical [...] Received from [facility] [place] of Occupational Health - Occupational Stress Questionnaire [...] blood-glucose meter (TRUE METRIX GLUCOSE METER) [facility] Use to test [...] 12 units lancets (ACCU-CHEK SOFTCLIX LANCETS) [facility] Use to test [...] times a day. naloxone (NARCAN) 4 mg/actuation [place] Apply 1 spray in one nostril if [...] Results Component Value Date PTH 36.0 10/25/2024 [id number] 7.1 (L) 10/08/2024 Hemoglobin A1C: Lab Results [...] documented as of this encounter Care Teams Christmas Tree Farm Crew Boss Relationship Specialty Start Date End Date Enedina Mcguire NP [address] [place], [place] [id number] PCP - General Internal Medicine 10/05/24 Maureen Pantoja, RN Txp Post Coordinator Transplant Hepatology 10/28/24 documented as of this encounter
--- OUTSIDE RECORDS SUMMARY | 2024-12-04 14:15 | XMS_ITS | Encounter Summary ---
Author Organization [facility] Address [address] [place] [address] Care Team Providers Care Angle Roll Operator Name Role Phone Enedina Mcguire APRN Primary Care Provider + Reason for Visit * Reason Comments Follow-up Neck Pain Med Management Encounter Details Date Type Department Care Team (Late st Contact Info) Description 12/04/2024 2:15 PM EDT Office Visit [facility] PAIN [facility]NAGEMENT [address] [address] Dawn Christie PA-C [address] [facility] [address] [place] [address] Cervical radiculopathy (Primary Dx); Long-term use of [...] Recorded In the past 12 months has [employer], gas, oil, or water [employer] threatened to shut off services in [...] GED or equivalent No 07/09/2024 Preferred Language Luxembourger 07/09/2024 PHQ-2 Answer Date Recorded Patient Health [...] 2:15 PM EDT Referring Physician: Enedina Mcguire, DOPE MIXER [address] [place] [address] Primary Physician: Enedina Mcguire APRN CHIEF COMPLAINT [...] has had kidney and liver transplant at [facility] since his last office visit. Additionally, he has been started on Dilaudid 2 mg every 6 hours and gabapentin 100 mg 3 times daily by one of his transplant providers at the [facility]. He was previously prescribed tramadol 50 mg 1 to 2 tablets daily as needed. Patient reports he is following up weekly with his transplant providers at the [facility]. Continues to have some chronic neck [...] Surgeon: Presley Montes De Oca MD; Location: [email or web address] ENDOSCOPY; Service: Gastroenterology; Laterality: N/A; ENDOSCOPY N/A 07/29/2022 Procedure: ESOPHAGOGASTRODUODENOSCOPY; Surgeon: Presley Montes De Oca MD; Location: [email or web address] ENDOSCOPY; Service: Gastroenterology; Laterality: N/A; WITH APC [...] 6 hours from transplant providers at the [facility] for postoperative pain for the last [...] provided from his transplant team at the [facility]. Additionally, this did reveal positive THC. Tramadol is a controlled substance and stated [place] and any use of illicit drugs/substances such [...] Referrals: None indicated 9. Records: Kristofer reviewed; [facility] notes reviewed 10. Lifestyle goals: Follow-up 1 month for medication management [facility] Pain Management Dawn Christie PA-C documented in this encounter Plan of Treatment Upcoming Encounters Date Type Department Care Team (Late st Contact Info) Description 04/02/2025 2:15 PM EST Office Visit [facility] PAIN MANAGEMENT [address] [facility] [address] [place] [address] Dawn Christie PA-C [address] [facility] [address] [place] [address] documented as of this encounter Results * (ABNORMAL) Urine Drug Screen - Urine, Clean Catch (12/04/2024 2:50 PM EDT) THC, Screen, Urine Positive(A) Negative 12/04 8:32 PM EDT [facility] Phencyclidine (PCP), Urine Negative Negative 12/04/2024 8:32 PM EDT [facility] Cocaine Screen, Urine Negative Negative 12/04/2024 8:32 PM EDT [facility] Methamphetamine, Ur Negative Negative 12/04/2024 8:32 PM EDT [facility] Opiate Screen Positive(A) Negative 12/04/2024 8:32 PM EDT [facility] Amphetamine Screen, Urine Negative Negative 12/04/2024 8:32 PM EDT [facility] Benzodiazepine Screen, Urine Negative Negative 12/04/2024 8:32 PM EDT [facility] Tricyclic Antidepressants Screen Negative Negative 12/04/2024 8:32 PM EDT [facility] Methadone Screen, Urine Negative Negative 12/04/2024 8:32 PM EDT [facility] Barbiturates Screen, Urine Negative Negative 12/04/2024 8:32 PM EDT [facility] Oxycodone Screen, Urine Negative Negative 12/04/2024 8:32 PM EDT [facility] Buprenorphine, Screen, Urine Negative Negative 12/04/2024 8:32 PM EDT [facility] Urine Urine specimen obtained by clean catch procedure / Unknown Collection / Unknown 12/04/2024 2:50 PM EDT 12/04/2024 2:54 PM EDT Narrative [facility] - 12/04/2024 8:32 PM EDT [...] Christie PA-C URINE ORDERABLES Final R esult [facility]
[address] [phone] documented in this encounter Visit Diagnoses Diagnosis [...] documented as of this encounter Care Teams Angle Roll Operator Relationship Specialty Start Date End Date Enedina Mcguire APRN [address] [place] [address] PCP - General Nurse Practitioner 10/27/24 documented as of this encounter
--- OUTSIDE RECORDS SUMMARY | 2024-12-04 14:55 | XMS_ITS | Encounter Summary ---
[facility] Address [address] [place] [address] Care Team Providers Care Gas Booster Engineer Name Role Phone Enedina Mcguire APRN Primary Care Provider + Encounter Details Date Type Department Care Team (Late st Contact Info) Description 12/04/2024 2:55 PM EDT Lab [facility] [place] [address] [place] [address] Therapeutic drug monitoring Social History Tobacco Use Types Packs/Day Years Used Date Smoking Tobacco: Former Cigarettes 4 20 Passive Smoke Exposure: Past Smokeless Tobacco: Current Comments:MARIJUANA USE ABOUT 2X PER WEEK - reports no use 08-05-2024 Alcohol Use Standard Drinks/Week Comments Not Currently 0 (1 standard drink = 0.6 oz pure alcohol) 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 [facility] Utilities Answer Date Recorded In the past 12 months has [employer], [employer], oil, or water [employer] threatened to shut off services in your [...] Measure Score 0 10/02/2022 [facility] - Occupational Stress Questionnaire Answer [...] GED or equivalent No 07/09/2024 Preferred Language Equatorial Guinean 07/09/2024 PHQ-2 Answer Date Recorded Patient Health [...] 04/02/2025 2:15 PM EST Office Visit [facility] [address] [address] Vazquez Christie PA-C [address] [place] [address] documented as of this encounter Procedures Procedure Name Priority Date/Time Associated Diagnosis Comments URINE DRUG SCREEN Routine 12/04/2024 2:5 0 PM EDT Therapeutic drug monitoring FENTANYL, URINE Routine 12/04/2024 2:50 PM EDT Therapeutic drug monitoring documented in this encounter Results * Fentanyl, Urine - Urine, Clean Catch (12/04/2024 2:50 PM EDT) Fentanyl, Urine Negative Negative 12/04/2024 9:15 PM EDT [facility] Urine Urine specimen obtained by clean catch procedure / Unknown Collection / Unknown 12/04/2024 2:50 PM EDT 12/04/2024 2:54 PM EDT Narrative [facility] - 12/04/2024 9:15 PM EDT [...] Urbanp PA-C URINE ORDERABLES Final R esult [facility]
[address] [place] [address], * (ABNORMAL) Urine Drug Screen - Urine, Clean Catch (12/04/2024 2:50 PM EDT) THC, Screen, Urine Positive(A) Negative 12/04 8:32 PM EDT [facility] Phencyclidine (PCP), Urine Negative Negative 12/04/2024 8:32 PM EDT [facility] Cocaine Screen, Urine Negative Negative 12/04/2024 8:32 PM EDT [facility] Methamphetamine, Ur Negative Negative 12/04/2024 8:32 PM EDT [facility] Opiate Screen Positive(A) Negative 12/04/2024 8:32 PM EDT [facility] Amphetamine Screen, Urine Negative Negative 12/04/2024 8:32 PM EDT [facility] Benzodiazepine Screen, Urine Negative Negative 12/04/2024 8:32 PM EDT [facility] Tricyclic Antidepressants Screen Negative Negative 12/04/2024 8:32 PM EDT [facility] Methadone Screen, Urine Negative Negative 12/04/2024 8:32 PM EDT [facility] Barbiturates Screen, Urine Negative Negative 12/04/2024 8:32 PM EDT [facility] Oxycodone Screen, Urine Negative Negative 12/04/2024 8:32 PM EDT [facility] Buprenorphine, Screen, Urine Negative Negative 12/04/2024 8:32 PM EDT [facility] Urine Urine specimen obtained by clean catch procedure / Unknown Collection / Unknown 12/04/2024 2:50 PM EDT 12/04/2024 2:54 PM EDT Narrative [facility] - 12/04/2024 8:32 PM [...] Otilio JACOME-Lalit URINE ORDERABLES Final R esult [facility]
[address] [place] [address], documented in this encounter Visit Diagnoses Diagnosis Therapeutic drug monitoring Encounter for therapeutic drug monitoring documented in this encounter Additional Health Concerns Assessment Noted Time PHQ-2 Depression Total Score: 1 12/31/19 24 3:25 PM EDT documented as of this encounter Care Teams Gas Booster Engineer Relationship Specialty Start Date End Date Enedina Mcguire APRN [address] [place] [address] PCP - General Nurse Practitioner 10/27/24 documented as of this encounter
--- OUTSIDE RECORDS SUMMARY | 2024-12-09 10:20 | XMS_ITS | Encounter Summary ---
Author Organization [facility] Address [address] [place] [address] Care Team Providers Care Drafter Civil Name Role Phone Enedina Mcguire NP Primary Care Provider [phone] Maureen Pantoja RN Unavailable Unavail able Source [...] release of HIV test results or diagnoses. [id number] Reason for Visit * Reason Comments Liver Transplant Follow-up Encounter Details Date Type Department Care Team (Late st Contact Info) Description 12/09/2024 10:20 AM EDT Office Visit [facility] Liver Transplant at [address] [address] Harvey Domínguez III, MD [address] [place] [address] Encounter for therapeutic drug monitoring (Primary [...] the past 12 months has th e [employer], [employer], oil, or water company threatened to shut [...] in this encounter Progress Notes * Rose Mnotelongo MD - 12/09/2024 10:20 AM EDT Transplant [...] Nutrition: patient continues close f/u w/ transplant waste examiner. - Bone health: Vit D level to [...] documented as of this encounter Care Teams Drafter Civil Relationship Specialty Start Date End Date Enedina Mcguire NP [address] [place] [address] PCP - General Internal Medicine 10/05/24 Maureen Pantoja, ЮЛИЯ Txp Post Coordinator Transplant Hepatology 10/28/24 documented as of this encounter
--- OUTSIDE RECORDS SUMMARY | 2024-12-09 11:45 | XMS_ITS | Encounter Summary ---
Author Organization Address [address] [place] [address] Care Team Providers Care Assistant Offset Press Operator Name Role Phone Enedina Mcguire NP Primary Care Provider [phone] Maureen Pantoja RN Unavailable Unavail able Source [...] release of HIV test results or diagnoses. [id number] Health Encounter Details Date Type Department Care Team (Late st Contact Info) Description 12/09/2024 11:45 AM EDT Office Visit [facility] Psychiatry Transplant at [place] [address] [phone] Rebekah Linares, [address] [place] [address] Alcohol use disorder (Primary Dx) [...] Recorded In the past 12 months has [employer], gas, oil, or water [employer] threatened to shut off services in your [...] as of this encounter Care Teams Assistant Offset Press Operator Relationship Specialty Start Date End Date Enedina Mcguire NP [address] [place] [address] PCP - General Internal Medicine 10/05/24 Maureen Pantoja, RN Txp Post Coordinator Transplant Hepatology 10/28/24 documented as of this encounter
--- OUTSIDE RECORDS SUMMARY | 2024-12-18 14:00 | XMS_ITS | Encounter Summary ---
Author Organization [facility] Address [address] [place] [address] Care Team Providers Care Flask Carrier Name Role Phone Enedina Mcguire NP Primary Care Provider [phone] Maureen Pantoja RN Unavailable Unavail able Source [...] release of HIV test results or diagnoses. [id number] Reason for Visit * Auth/Cert (Routine) Specialty Diagnoses / Procedures Referred By Shane hernadez Referred To Contact Psychiatry [facility] Psychiatry Transplant at [address] [address] Phone: tel: fax: Referral ID Status Reason Start Date Expiration Date Visits Re quested Visits Authorized [id number] 1 1 Encounter Details Date Type Department Care Team (Late st Contact Info) Description 12/18/2024 2:00 PM EDT Office Visit [facility] Psychiatry Transplant at [address] [place] [phone] Craig Warren PsyD [address] [facility] [address] [place] [address] Alcohol use disorder (Primary Dx); PTSD (post-traumatic stress disorder) Social History Tobacco Use Types Packs/Day Years Used Date Smoking Tobacco: Former Cigarettes Smokeless Tobacco: Current Alcohol Use Standard Drinks/Week Comments Yes 0 (1 standard drink = 0.6 oz pure alcohol) History of alcohol abuse, reports no use in 3 week- typically endorses use as 4 glasses of wine a days Utilities Answer Date Recorded In the past 12 months has th e [employer], [employer], oil, or water [employer] threatened to shut off services in your [...] Progress Notes * Craig Warren PsyD - 12/18/2024 2:00 PM EDT Transplant Psychology Outpatient Visit Julien [place] is a 39 y.o. 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 Seen by this gag writer for pre-surgical evaluation. PMH includes PTSD and AUD. Referred to transplant psychiatry for medication management. Prozac started during October 2024 admission, pre-txp. Seen today for f/up. This was a Video visit, including two-way audio and video communication, in lieu of an in-person visit. The patient provided verbal consent to participate in the telehealth visit. The patient location for this telehealth visit is in home. I spent 41 minutes speaking with the patient, conducting an interview, performing a limited exam, and educating the patient on my assessment and plan. I also spe nt 10 minutes, on the same day as the encounter, preparing to see the patient (eg, review of tests)and documenting clinical information in the electronic or other health record. Subjective: Patient arrived to the appointment on-time and was escorted to a private office. Processed updates - continues to improve and gain strength. Considering his return to work and willmeet with HR. Some anxiety/attention issues noted as he continues to return to daily life. Specifically identified irritability and racing thoughts. He broached changing his psychotropic (Prozac). Explored options for PCP management or referral to transplant psychiatry, and he elected to f/up with PCP. Processed ideas and thoughts about the donor letter. Oriented patient to the process. Lastly, patient continues to engage in individual counseling for AUD and recently acquired an AA sponsor. Agreed to not schedule f/up at this time. Encouraged patient to reach out should mood [...] Process: Organized with linear process. - Mood: alright , euthymic - Affect: Congruent - Attitude: Cooperative, friendly - Judgment/Insight: Good Assessment: Dx: PTSD, AUD Plan: No follow up with this gag writer indicated at this time Patient to follow with sponsor & counselor Patient to follow-up with medical providers. 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
--- OUTSIDE RECORDS SUMMARY | 2025-01-01 14:15 | XMS_ITS | Encounter Summary ---
Author Organization [facility] Address [address] [place] [address] Care Team Providers Care Commissary Assistant Name Role Phone Enedina Mcguire APRN Primary Care Provider + Reason for Visit * Reason Comments Follow-up Neck Pain Back Pain Encounter Details Date Type Department Care Team (Late st Contact Info) Description 01/01/2025 2:15 PM EDT Office Visit [facility] PAIN MANAGEMENT [address] [phone] Vazquez Christie PA-C 17[address] [facility] [address] [place] [address] Cervical radiculopathy (Primary Dx); Long-term use of [...] alcohol) 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 [facility] Utilities Answer Date Recorded In the past 12 months has [employer], gas, oil, or water [employer] threatened to shut off services in your [...] GED or equivalent No 07/09/2024 Preferred Language Azerbaijani 07/09/2024 PHQ-2 Answer Date Recorded Patient Health [...] that took place at the [facility]. Patient does report he has not [...] Surgeon: Presley Montes De Oca MD; Location: [facility]; Service: Gastroenterology; Laterality: N/A; ENDOSCOPY N/A 07/29/2022 Procedure: ESOPHAGOGASTRODUODENOSCOPY; Surgeon: Presley Montes De Oca MD; Location: [facility]; Service: Gastroenterology; Laterality: N/A; WITH APC [...] Referrals: None indicated 9. Records: [facility] reviewed; [facility] notes reviewed 10. Lifestyle goals: Follow-up 3 months [facility] Pain Management Vazquez Christie PA-C documented in this encounter Plan of Treatment Upcoming Encounters Date Type Department Care Team (Late st Contact Info) Description 04/02/2025 2:15 PM EST Office Visit [facility] PAIN MANAGEMENT [address] [phone] Vazquez Christie PA-C [address] [address] documented as of this encounter [...] Date End Date Enedina Mcguire APRN [address] [place] [address] PCP - General Nurse Practitioner 10/27/24 documented as of this encounter
--- OUTSIDE RECORDS SUMMARY | 2025-01-06 08:20 | XMS_ITS | Encounter Summary ---
Author Organization [facility] Address [address] [place] [address] Care Team Providers Care Instrumental Teacher Name Role Phone Enedina Mcguire NP Primary Care Provider + [phone] Maureen Pantoja RN Unavailable Unavail able Source [...] release of HIV test results or diagnoses. [id number] Reason for Visit * Reason Comments Liver Transplant Follow-up Encounter Details Date Type Department Care Team (Late st Contact Info) Description 01/06/2025 8:20 AM EDT Office Visit [facility] Liver Transplant at [address] [address] Cosmo Pacheco MD [address] [place] [address] Liver/[place] [address] Mahad Alonzo MD [facility] [place] [address] S/P liver transplant (CMS-HCC) (Primary [...] the past 12 months has th e [employer], gas, oil, or water company threatened to [...] Nutrition: patient continues close f/u w/ transplant prison keeper. - Bone health: Vit D level to be drawn ~POD#90. - Labs: Labs (CBC w/ diff, renal panel, liver panel, tacro level) weekly. Lipid panel, HgbA1C and Vit D level to be drawn at POD#90, HgbA1C and Vit D level to be drawn at POD#180. - Follow up: RTC 1 month Mahad Alonzo MD Transplant Surgery [phone] [1] Allergies Allergen Reactions Adhesive Itching and [...] Confirmation, B Lab Routine S/P liver transplant ([facility]) Immunosuppression ([facility]) Kidney transplant recipient Alcohol use disorder weekly for 67 Occurrences starting 01/06/2025 until 07/21/2025 documented as of this encounter Visit Diagnoses Diagnosis S/P liver transplant ([facility])- Primary Immunosuppression ([facility]) Kidney transplant recipient Alcohol use disorder documented in this encounter Additional Health Concerns Infection Onset Date Last Indicated Resolved Time 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
--- OUTSIDE RECORDS SUMMARY | 2025-01-06 09:30 | XMS_ITS | Encounter Summary ---
Author Organization [facility] Address [facility] [place] [address] Care Team Providers Care Arc Air Operator Name Role Phone Enedina Mcguire NP Primary Care Provider + [phone] Maureen Pantoja RN Unavailable Unavail able Source [...] release of HIV test results or diagnoses. [id number] Health Encounter Details Date Type Department Care Team (Late st Contact Info) Description 01/06/2025 9:30 AM EDT Office Visit [facility] Liver Transplant at [place] [id number] [place] [address] Leisa Juarez MD [address] [place] [address] 2nd [place] [address] Kidney transplant recipient (Primary Dx); Hypomagnesemia; Hyperphosphatemia; Immunosuppression (CMS-HCC); Viral disease exposure; Hypertension, unspecified type Social History Tobacco Use Types Packs/Day [...] Progress Notes * Caron Santos CNP - 01/06/2025 9:30 AM EDT Name: Julien Anderson Date of [...] Chief Complaint: Follow up after SLK. POD #71/72 History of Present Illness Julien Anderson is a 39 year old male with a history of kidney transplant who presents for follow-up after SLK. Doing well at home. BP has been good at home. 130/80's on nifedipine 30 mg daily. 143/92 in office this am. Eating and drinking well Diarrhea for last 3-4 days, at least 3x/day Critically low mag, 1.0 yesterday Review of Systems Constitutional: Negative for chills and fever. Respiratory: Negative for shortness of breath. Cardiovascular: Negative for chest pain and leg swelling. Gastrointestinal: Positive for diarrhea (for last 3-4 days, at least 3x daily). Negative for nauseaand vomiting. Genitourinary: Negative for difficulty urinating and dysuria. Neurological: Negative for dizziness and headaches. All other systems reviewed and are negative. Histories: Past Medical History: Past Medical History: Diagnosis Date Alcoholic cirrhosis of liver (CMS-HCC) Esophageal varices (CMS-HCC) Hepatorenal syndrome ([facility]) Hypertension Other hyperlipidemia 07/26/2024 Renal cell [...] Strain: Low Risk (07/09/2024) Received from [facility] Overall Financial Resource Strain (CARDIA) Difficulty of [...] To Answer (07/14/2024) Received from [facility] [place] of Occupational Health - Occupational Stress Questionnaire [...] 2 tablets (1,000 mg total) by mouth 2 times a day as needed. mycophenolate (CELLCEPT) 250 mg capsule Take 2 capsules (500 mg total) by mouth 2 times a day. naltrexone (DEPADE) 50 mg tablet Take 1 tablet (50 mg total) by mouth daily. (Patient not taking: Reported on 01/06/2025) NIFEdipine (PROCARDIA-XL) 30 MG (OSM) 24 hr tablet Take 1 tablet by mouth once daily predniSONE (DELTASONE) 5 MG tablet Take 1 tablet (5 mg total) by mouth daily. sulfamethoxazole-trimethoprim (BACTRIM) [...] Tacro/CSA Target: Latest Ref Rng & Units 12/08/2024 12/16/2024 12/23/2024 12/31/2024 01/05/2025 Tacro/Creatinine Level Tacrolimus by Immunoassay (USE PT. THRESHOLDS) 6 - 15 ng/mL 8.4 11.3 10.3 8.0 Creatinine (USE PT. THRESHOLDS) 0.90 0.80 0.80 0.90 1.10 Currently Enrolled Research Studies: Objective Physical [...] Lab Results Component Value Date NA 140 01/05/2025 K 4.0 01/05/2025 CL 101 01/05/2025 CO2 29 (A) 01/05/2025 ANIONGAP 12 11/25/2024 BUN 19 01/05/2025 CREATININE 1.10 01/05/2025 GLUCOSE 98 01/05/2025 CALCIUM 9.7 01/05/2025 PHOS 5.4 (A) 01/05/2025 MG 1.0 (A) 01/05/2025 Hepatic: Lab Results Component Value Date ALKPHOS 47 01/05/2025 AST 28 01/05/2025 ALT 16 01/05/2025 ALBUMIN 4.8 01/05/2025 LABPROT 6.3 09/16/2024 BILIDIRECT 0.2 01/05/2025 BILITOT 1.0 01/05/2025 BILIINDIRECT 0.8 01/05/2025 LIPASE 40 09/04/2024 Lipids: Lab Results Component Value Date CHOLTOT <25 10/07/2024 TRIG 30 10/07/2024 HDL 4 (L) 10/07/2024 LDL See Note 10/07/2024 CBC: Lab Results Component Value Date WBC 2.3 01/05/2025 RBC 3.81 (A) 01/05/2025 HGB 11.9 (A) 01/05/2025 HCT 35.6 (A) 01/05/2025 MCV 93.4 01/05/2025 MCH 31.2 01/05/2025 MCHC 33.4 01/05/2025 RDW 15.0 (A) 01/05/2025 MPV 6.9 (L) 11/25/2024 PLT 108 01/05/2025 Parathyroid: Lab Results Component Value Date PTH 36.0 10/25/2024 [id number] 7.1 (L) 10/08/2024 Hemoglobin A1C: Lab Results [...] Urine: Lab Results Component Value Date LABCREAU 80 01/05/2025 LABPROT 6.3 09/16/2024 PROTEINUR 21.0 01/05/2025 LABURIN No growth 12/08/2024 UTPCR 0.39 11/11/2024 Others: Lab Results Component [...] reconstruction 10/27/24 AlloGraft Function: Cr reviewed. Stable, 1.10 yesterday. Ureteral stent removed 11/25/24 UA unremarkable 01/05/25 UPCr 0.26 IS: Steroid taper per protocol (currently on 7.5 mg daily), MMF 500 mg BID, and tacrolimus 5/6 mg am/pm. Immunosuppression is being managed in conjunction with liver transplant team. 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 Recipient treated with linezolidfor 7 days. CMV ppx: Valcyte 900 mg daily PJP ppx: Bactrim Fungal ppx: Fluconazole - complete Hypertension: Nifedipine 30 mg daily Blood pressure on target per home log Office reading 143/92 Volume status: Clinically euvolemic BK Screening: Per protocol (POD# 30, 60, 90, 180, 270, 365) Negative 12/31/24 Hematology: CBC reviewed, counts stable. Mineral Bone Disease: Hypomagnesemia : Mag reviewed, 1.0. On Slow Mag 143 mg BID. Not on PPI. Hyperphosphatemia, phos 5.4. PTH 36 on 10/25/24. Vit D 7.1 on 10/08/24, on ergo 50K weekly Health Maintenance: Deferred at this time in setting of recent transplant Changes this visit: - Renal function stable. - Hypomagnesemia: Increase Slow Mag to 143 mg TID. Given handout with magnesium rich foods. - Hyperphosphatemia: Decrease soda in diet. RTC: 1 month in continuity clinic. Scheduled 02/25/[address] Gonzalez[address] Discussed with Dr. Juarez. Lauren Santos, SAMSON, DISTRICT LEADER, ACETONE RECOVERY WORKER- Transplant Nephrology [phone] Preferred contact: secure chat The HPI, ROS, physical exam, test results, and assessment & plan were reviewed and copied forward (with edits) from a note written by me on 12/09/24. I have reviewed and updated the history, physical exam, data, assessment, and plan of the note so that it reflects my evaluation and management ofthe patient. Cosigned by Leisa Juarez MD at 01/09/2025 1:27 PM EDT Associated attestation - Leisa Juarez MD - 01/09/2025 1:27 PM EDT I saw and examined the patient 01/06/25, and discussed the case with the SAWYER. I agree with the assessment and plan as outlined in the SAWYER's note except as noted below. Patient is followed for monitoring of drug toxicity for being on immunosuppression with tacrolimus trough level, complete blood count, and basic metabolic profile POD 74 from K. Back to drinking alcohol, 1-2 glasses of wine a day. Not taking naltrexone Excellent renal allograft function. Hypomagnesemia, taking lower dose mag due to loose stools. Increase to TID. Increase mag in diet. Increase valcyte to 900 mg daily BK Monitoring. Neg last 01/02/25 IS: Per hepatology Finishing valcyte 01/26/25. 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
--- OUTSIDE RECORDS SUMMARY | 2025-01-20 11:54 | XMS_ITS | Encounter Summary ---
Author Organization [facility] Address [address] [place] [address] Care Team Providers Care Peritoneal Dialysis Registered Nurse Name Role Phone Enedina Mcguire NP Primary Care Provider [phone] Maureen Pantoja RN Unavailable Unavail able Source [...] release of HIV test results or diagnoses. [id number] Reason for Visit * Reason Comments Results Encounter Details Date Type Department Care Team (Riky st Contact Info) Description 11/27/2024 Telephone [facility] Liver Transplant at [address] [address] Maureen Pantoja, RN Results Social [...] In the past 12 months has e [employer], gas, oil, or water [email or web address] threatened to shut off services in your [...] documented as of this encounter Care Teams Peritoneal Dialysis Registered Nurse Relationship Specialty Start Date End Date Enedina Mcguire NP [address] [place] [address] PCP - General Internal Medicine 10/05/24 Maureen Pantoja, ЮЛИЯ Txp Post Coordinator Transplant Hepatology 10/28/24 documented as of this encounter
--- OUTSIDE RECORDS SUMMARY | 2025-01-20 11:54 | XMS_ITS | Encounter Summary ---
Author Organization [facility] Address [address] [place] [address] Care Team Providers Care Adding Machine Mechanic Name Role Phone Enedina Mcguire NP Primary Care Provider [phone] Maureen Pantoja RN Unavailable Unavail able Source [...] release of HIV test results or diagnoses. [id number] Reason for Visit * Reason Comments Medication Refill Refill Request 1st A ttempt Encounter Details Date Type Department Care Team (Late st Contact Info) Description 10/21/2024 Refill [facility] Gastroenterology at [facility] Office [address] [place] [phone] Gerri Peterson MD [address] [place] [address] Social History Tobacco Use Types Packs/Day Years Used Date Smoking Tobacco: Former Cigarettes Smokeless Tobacco: Current Alcohol Use Standard Drinks/Week Comments Yes 0 (1 standard drink = 0.6 oz pure alcohol) History of alcohol abuse, reports no use in 3 week- typically endorses use as 4 glasses of wine a days Utilities Answer Date Recorded In the past 12 months has [employer], gas, oil, or water [employer] threatened to shut off services in your [...] documented as of this encounter Care Teams Adding Machine Mechanic Relationship Specialty Start Date End Date Enedina Mcguire NP [address] [place] [address] PCP - General Internal Medicine 10/05/24 Maureen Pantoja, ЮЛИЯ Txp Post Coordinator Transplant Hepatology 10/28/24 documented as of this encounter
--- OUTSIDE RECORDS SUMMARY | 2025-01-20 11:54 | XMS_ITS | Encounter Summary ---
Author Organization [facility] Address [address] [place] [address] Care Team Providers Care Receiving Dock Checker Name Role Phone Enedina Mcguire NP Primary Care Provider [phone] Alicia Rankin RN Unavailable Unavail able Source [...] release of HIV test results or diagnoses. [id number] Health Encounter Details Date Type Department Care Team (Late st Contact Info) Description 12/02/2024 Telephone [facility] Liver Transplant at [address] [address] Mitzy Gill MA Social History [...] In the past 12 months has e [employer], gas, oil, or water company threatened to [...] advised he is almost out of FK. [facility] is working on getting an overnight shipment out to Pt but needs to confirm dosing on script. Sharda also brought the Pt on the line with us. I confirmed we have a prescription that was written on 11/25/24 but it was sent to [facility], not [facility]. Pt states he would like it re-routed to [facility] so they can get this out to him. I advised Pt and Sharda that I would have prescription updated and routed to [facility]. No further needs atthis time. documented [...] documented as of this encounter Care Teams Receiving Dock Checker Relationship Specialty Start Date End Date Enedina Mcguire NP [address] [place] [address] PCP - General Internal Medicine 10/05/24 Alicia Rankin, ЮЛИЯ Txp Post Coordinator Transplant Hepatology 10/28/24 documented as of this encounter
--- OUTSIDE RECORDS SUMMARY | 2025-01-20 11:54 | XMS_ITS | Encounter Summary ---
Author Organization [facility] Address [address] [place] [address] Care Team Providers Care Personal Computer Network Engineer Name Role Phone Enedina Mcguire NP Primary Care Provider [phone] Maureen Pantoja RN Unavailable Unavail able Source [...] release of HIV test results or diagnoses. [id number] Reason for Visit * Reason Comments Medication Management Requesting RX for New Medication Encounter Details Date Type Department Care Team (Late st Contact Info) Description 10/21/2024 Telephone [facility] Gastroenterology at [facility] [address] [place] [phone] Gerri Peterson MD [address] [place] [address] Medication Management (Requesting RX for [...] In the past 12 months has th [employer], oil, or [employer] threatened to shut off services in your [...] Pt called. States he was discharged from [facility] on 10/17 with instructions to contact PCP to start Rx Torsemide 20 mg one tablet a day. PCP is out of town and was advised by airline managerial supervisor in office to contact gastro MD to obtain Rx. Pt states he is retaining 30 pounds of fluid and needs MD to send a prescription or return call dali. Pt can be reached at [phone] documented in this encounter Plan of [...] documented as of this encounter Care Teams Personal Computer Network Engineer Relationship Specialty Start Date End Date Enedina Mcguire NP [address] [place] [address] PCP - General Internal Medicine 10/05/24 Maureen Pantoja, RN Txp Post Coordinator Transplant Hepatology 10/28/24 documented as of this encounter
--- OUTSIDE RECORDS SUMMARY | 2025-01-20 11:54 | XMS_ITS | Encounter Summary ---
Author Organization [facility] Address [address] [place] [address] Care Team Providers Care Newspaper Photojournalist Name Role Phone Enedina Mcguire NP Primary Care Provider [phone] Maureen Pantoja RN Unavailable Unavail able Source [...] release of HIV test results or diagnoses. [id number] Health Encounter Details Date Type Department Care Team (Late st Contact Info) Description 12/03/[address] [facility] Liver Transplant at [address] [place] [phone] Marlene Ro MA Social History Tobacco Use [...] Recorded In the past 12 months has [employer], gas, oil, or water [employer] threatened to shut off services in your [...] 5.0 g/dL Blood Narrative Resulting Agency Comment Result [facility] Provider LAB BLOOD ORDERABLES Denisse l Result * Creatinine, urine, random (12/02/2024 8:01 AM EDT) Creatinine, Urine 48 Urine Narrative Resulting Agency Comment Result [facility] Provider URINE ORDERABLES Final Re sult * Urinalysis w/Rfl to Microscopic (12/02/2024 8:01 AM EDT) Glucose, UA Negative Negative Ketones, UA Negative Negative Blood, UA Negative Negative Bilirubin, UA Negative Negative Urobilinogen, UA Normal Normal Protein, UA Negative Negative Leukocyte Esterase, UA Negative Negative pH, UA 6.0 4.5 - 8.0 Specific [place], UA 1.010 1.005 - 1.030 Clarity, UA Clear Clear Color, UA Yellow Light Yellow, Yellow Urine Narrative Resulting Agency Comment Result [facility] Provider URINE ORDERABLES Final Re [...] 6.0 10^3/mL Blood Narrative Resulting Agency Comment [facility] Provider LAB BLOOD ORDERABLES Denisse l Result * Urine Protein, Tot, Random (w/o Creat) (12/02/2024 8:01 AM EDT) Total Protein, Ur 10.0 Urine Narrative Resulting Agency Comment Result [facility] Provider URINE ORDERABLES Final Re sult * (ABNORMAL) Hepatic Function Panel (12/02/2024 8:01 AM EDT) Bilirubin, Direct 0.5 Bilirubin, Indirect 0.2 Alkaline Phosphatase 109 U/L ALT 16 U/L AST 15 U/L Total Bilirubin 0.7 0.1 - 1.4 mg/dL Total Protein 6.0(A) 6.4 - 8.2 g/dL Plasma Narrative Resulting Agency Comment Result [facility] Provider LAB BLOOD ORDERABLES Denisse l Result documented in this encounter Visit Diagnoses Not on filedocumented in this encounter Additional Health Concerns Infection Onset Date Last Indicated Resolved Time 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
--- OUTSIDE RECORDS SUMMARY | 2025-01-20 11:54 | XMS_ITS | Encounter Summary ---
Author Organization [facility] Address [address] [place] [address] Care Team Providers Care Process Manager Name Role Phone Enedina Mcguire NP Primary Care Provider [phone] Maureen Pantoja RN Unavailable Unavail able Source [...] release of HIV test results or diagnoses. [id number] Health Encounter Details Date Type Department Care Team (Late st Contact Info) Description 12/01/2024 Telephone [facility] Liver Transplant at [address] [place] [phone] Gladis Chisholm MA Social History Tobacco [...] Recorded In the past 12 months has [employer], gas, oil, or water [employer] threatened to shut off services in your [...] have tried to fax his orders through [employer] but was unsuccessful. The plan is to send him a copy via but wanted confirmation that he had a way to print them out. * Gladis Chisholm MA - 12/01/2024 3:08 PM EDT Pt called to request that an order for a urinalysis be put in for him to get done at [facility]. Please advise. documented in [...] Date End Date Enedina Mcguire NP [address] [place] [address] PCP - General Internal Medicine 10/05/24 Maureen Pantoja, RN Txp Post Coordinator Transplant Hepatology 10/28/24 documented as of this encounter
--- OUTSIDE RECORDS SUMMARY | 2025-01-20 11:54 | XMS_ITS | Encounter Summary ---
Author Organization [facility] Address [address] [place] [address] Care Team Providers Care Burglar Alarm Operator Name Role Phone Enedina Mcguire NP Primary Care Provider + [phone] Maureen Pantoja RN Unavailable Unavail able Source [...] release of HIV test results or diagnoses. [id number] Health Encounter Details Date Type Department Care Team (Late st Contact Info) Description 11/27/2024 Chart Note [facility] Liver Transplant at [address] [place] [phone] Marlene Ro MA FK Pending 11/27 Labs [...] In the past 12 months has e [employer], gas, oil, or water [employer] threatened to shut off services in your [...] Agency Comment [facility] Result [facility] Provider LAB BLOOD ORDERABLES Denisse l Result * Protime-INR (11/27/2024 7:50 AM EDT) Pathologist [facility] INR 0.93 0.9 - 1.1 Plasma Narrative Resulting Agency Comment [facility] Result [facility] Provider LAB BLOOD ORDERABLES Densise l Result * (ABNORMAL) CBC and differential (11/27/2024 7:50 AM EDT) [facility] Hemoglobin 10.2(A) 13.5 - 17.5 g/dL [...] 6.6 10^3/mL Blood Narrative Resulting Agency Comment [facility] Result [facility] Provider LAB BLOOD ORDERABLES Denisse l Result * Hepatic Function Panel (11/27/2024 7:50 AM EDT) Pathologist [facility] Bilirubin, Direct 0.4 Bilirubin, Indirect 0.1 [...] documented as of this encounter Care Teams Burglar Alarm Operator Relationship Specialty Start Date End Date Enedina Mcguire NP [address] [place] [address] PCP - General Internal Medicine 10/05/24 Maureen Pantoja, RN Txp Post Coordinator Transplant Hepatology 10/28/24 documented as of this encounter
--- OUTSIDE RECORDS SUMMARY | 2025-01-20 11:55 | XMS_ITS | Encounter Summary ---
Author Organization [facility] Address [address] [place] [address] Care Team Providers Care Principal Associate Name Role Phone Enedina Mcguire APRN Primary Care Provider + Encounter Details Date Type Department Care Team ([facility] st Contact Info) Description 10/07/2024 Results Follow-Up [facility] INTERNAL MEDICINE [address] [place] [address] Enedina Mcguire APRN [address] [place], [place] [id number] Social History Tobacco Use Types Packs/Day Years [...] Recorded In the past 12 months has [employer], [employer], oil, or water [employer] threatened to shut off services in your [...] GED or equivalent No 07/09/2024 Preferred Language Cape Verdean 07/09/2024 PHQ-2 Answer Date Recorded Patient Health [...] Description 04/02/2025 2:15 PM EST Office Visit [facility] PAIN MANAGEMENT [address] [phone] Vazquez Christie PA-C [address] [place] [address] documented as of this encounter Visit Diagnoses Not on filedocumented in this encounter Additional Health Concerns Assessment Noted Time PHQ-2 Depression Total Score: 1 12/31/19 24 3:25 PM EDT documented as of this encounter Care Teams Principal Associate Relationship Specialty Start Date End Date Enedina Mcguire APRN [address] [place] [address] PCP - General Nurse Practitioner 10/27/24 documented as of this encounter
--- OUTSIDE RECORDS SUMMARY | 2025-01-20 11:55 | XMS_ITS | Encounter Summary ---
Author Organization [facility] Address [address] [place] [address] Care Team Providers Care Rotor Coil Taper Name Role Phone Enedina Mcguire NP Primary Care Provider [phone] Maureen Pantoja RN Unavailable Unavail able Source [...] release of HIV test results or diagnoses. [id number] Reason for Visit * Reason Comments Results Encounter Details Date Type Department Care Team (Riky st Contact Info) Description 01/09/2025 Telephone [facility] Liver Transplant at [address] [phone] Marisela Martinez MA Results Social [...] In the past 12 months has e [employer], gas, oil, or water [email or web address] threatened to [...] Progress Notes * Maureen Pantoja RN - 01/15/2025 8:37 AM EDT FK 20.7 - NOT a trough level. Will follow-up on next set of labs. * Maureen Pantoja RN - 01/09/2025 3:49 PM EDT Lab results from 01/09/25 reviewed. Mag improved to 1.3 (from 1.0). Cr 0.90; BUN 20. LFTs stable. Alk phos 57, AST/ALT . FK pending. WBC 1.8 (from 2.3) and ANC 1,000 (from 1,200). Current IS: FK 5 mg in AM and 6 mg in PM MMF 500 mg BID Prednisone 5 mg daily (decreased 01/06/25) Will follow-up on pending FK level. * Maureen Pantoja RN - 01/09/2025 1:41 PM EDT WBC of 1.8 (from 2.3). Awaiting hardcopy of results so Txp MA can enter into ASP64 and RN Txp Coordinator can review. Patient was asked by Kidney Txp Provider to repeat labs today to check magnesium level. Will await all results. * Marisela Martinez MA - 01/09/2025 1:37 PM EDT Pts outpt lab [facility] called with a critical lab value [...] documented as of this encounter Care Teams Rotor Coil Taper Relationship Specialty Start Date End Date Enedina Mcguire NP [address] [place] [address] PCP - General Internal Medicine 10/05/24 Maureen Pantoja, RN Txp Post Coordinator Transplant Hepatology 10/28/24 documented as of this encounter
--- OUTSIDE RECORDS SUMMARY | 2025-01-20 11:55 | XMS_ITS | Encounter Summary ---
Author Organization [facility] Address [address] [place] [address] Care Team Providers Care Electronic Imaging System Operator Name Role Phone Enedina Mcguire NP Primary Care Provider [phone] Maureen Pantoja RN Unavailable Unavail able Source [...] release of HIV test results or diagnoses. [id number] Health Encounter Details Date Type Department Care Team (Late st Contact Info) Description 11/21/2024 Chart Note [facility] Liver Transplant at [address] [place] [phone] Marlene Ro MA FK: 11/18 & 11/20 [...] Recorded In the past 12 months has [employer], gas, oil, or water [employer] threatened to shut off services in your [...] 5.0 g/dL Blood Narrative Resulting Agency Comment [facility] Historical Provider LAB BLOOD ORDERABLES [...] 6.4 10^3/mL Blood Narrative Resulting Agency Comment [facility] Historical Provider LAB BLOOD ORDERABLES Denisse l Result * Hepatic Function Panel (11/20/2024 8:00 AM EDT) Bilirubin, Direct 0.4 Bilirubin, Indirect 0.1 Alkaline Phosphatase 285 U/L ALT 60 U/L AST 25 U/L Total Bilirubin 0.5 0.1 - 1.4 mg/dL Total Protein 6.4 6.4 - 8.2 g/dL Plasma Narrative Resulting Agency Comment [facility] Result [facility] MD LAB BLOOD ORDERABLES Denisse l Result * Tacrolimus level (11/18/2024 7:45 AM EDT) Pathologist [facility] Tacrolimus Lvl 12.5 6 - 15 ng/mL Whole Blood Result [facility] MD LAB BLOOD ORDERABLES Denisse l Result * (ABNORMAL) Hepatic Function Panel (11/18/2024 7:45 AM EDT) [facility] Bilirubin, Direct 0.5 Bilirubin, Indirect 0.1 Alkaline Phosphatase 189 U/L ALT 41 U/L AST 23 U/L Total Bilirubin 0.6 0.1 - 1.4 mg/dL Total Protein 6.1(A) 6.4 - 8.2 g/dL Plasma Narrative Resulting Agency Comment [facility] Result [facility] LAB BLOOD ORDERABLES Denisse l Result * (ABNORMAL) Renal Function Panel w/o EGFR (11/18/2024 7:45 AM EDT) [facility] Glucose 100 mg/dL BUN 43(A) [...] 5.0 g/dL Blood Narrative Resulting Agency Comment [facility] Result [facility] MD LAB BLOOD ORDERABLES Denisse l Result * (ABNORMAL) CBC and differential (11/18/2024 7:45 AM EDT) [facility] Hemoglobin 10.2(A) 13.5 - 17.5 [...] 6.0 10^3/mL Blood Narrative Resulting Agency Comment [facility] us Historical Provider LAB BLOOD ORDERABLES Denisse l Result documented in this encounter Visit Diagnoses Not on filedocumented in this encounter Additional Health Concerns Infection Onset Date Last Indicated Resolved Time 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
--- OUTSIDE RECORDS SUMMARY | 2025-01-20 11:55 | XMS_ITS | Encounter Summary ---
Author Organization [facility] Address [address] [place] [address] Care Team Providers Care Stock Parts Inspector Name Role Phone Enedina Mcguire NP Primary Care Provider [phone] Maureen Pantoja RN Unavailable Unavail able Source [...] release of HIV test results or diagnoses. [id number] Health Encounter Details Date Type Department Care Team (Late st Contact Info) Description 11/25/2024 Social Work [facility] Liver Transplant at [address] [place] [phone] Kaylin Willard MSW Social History Tobacco Use [...] Recorded In the past 12 months has [employer], gas, oil, or water [employer] threatened to shut off services in your [...] AM 09/29/2024 11:00 AM 11/25/2024 3:00 PM [id number] Score MAGALYS-7 Total Score 17 13 4 Scores are not concerning for depression/anxiety. No further SW needs identified. 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
--- OUTSIDE RECORDS SUMMARY | 2025-01-20 11:55 | XMS_ITS | Encounter Summary ---
Author Organization [facility] Address [address] [place] [address] Care Team Providers Care Tire Fabric Inspector Name Role Phone Enedina Mcguire APRN Primary Care Provider + Reason for Visit * Reason Onset Date Comments CALLBACK 10/27/2024 Encounter Details Date Type Department Care Team ([facility] st Contact Info) Description 10/27/[address] [facility] INTERNAL MEDICINE [address] [place] [address] Enedina Mcguire APRN [address] [place] [address] CALLBACK Social History Tobacco Use [...] Recorded In the past 12 months has [employer], [employer], oil, or water [employer] threatened to shut off services in your [...] [facility] - Occupational Stress Questionnaire Answer Date Recorded [...] Relationship: Emergency Contact Best call back number: [phone] What was the call regarding: WOULD LIKE A CALL BACK FROM FRANCESCA MCGUIRE HERSELF. SHE WOULD LIKE TO DISCUSS HER 'S TRANSPLANT LIST STATUS. THEY HAVE SOME GOOD NEWS TO REPORT. documented in this encounter Plan of Treatment Upcoming Encounters Date Type Department Care Team (Late st Contact Info) Description 04/02/2025 2:15 PM EST Office Visit [facility] PAIN MANAGEMENT [address] [facility] [address] [place] [address] Vazquez Christie PA-C [address] [id number] documented as of this encounter Visit Diagnoses Not on filedocumented in this encounter Additional Health Concerns Assessment Noted Time PHQ-2 Depression Total Score: 1 12/31/19 24 3:25 PM EDT documented as of this encounter Care Teams Tire Fabric Inspector Relationship Specialty Start Date End Date Enedina Mcguire APRN [address] [place] [address] PCP - General Nurse Practitioner 10/27/24 documented as of this encounter
--- OUTSIDE RECORDS SUMMARY | 2025-01-20 11:55 | XMS_ITS | Encounter Summary ---
Author Organization [facility] Address [address] [place] [address] Care Team Providers Care Agriculture Instructor Name Role Phone Enedina Mcguire NP Primary Care Provider + [phone] Maureen Pantoja RN Unavailable Unavail able Source [...] release of HIV test results or diagnoses. [id number] Health Encounter Details Date Type Department Care Team (Late st Contact Info) Description 12/04/2024 Telephone [facility] Liver Transplant at [address] [place] [phone] Marlene Ro MA Social History Tobacco [...] Recorded In the past 12 months has [employer], gas, oil, or water [employer] threatened to shut off services in [...] I transferred the call andadvised pt to [facility] if no answer. He called [...] documented as of this encounter Care Teams Agriculture Instructor Relationship Specialty Start Date End Date Enedina Mcguire NP [address] [place] [address] PCP - General Internal Medicine 10/05/24 Maureen Pantoja, RN Txp Post Coordinator Transplant Hepatology 10/28/24 documented as of this encounter
--- OUTSIDE RECORDS SUMMARY | 2025-01-20 11:55 | XMS_ITS | Encounter Summary ---
Author Organization [facility] Address [address] [place] [address] Care Team Providers Care Commercial Parts Professional Name Role Phone Enedina Mcguire NP Primary Care Provider [phone] Maureen Pantoja RN Unavailable Unavail able Source [...] release of HIV test results or diagnoses. [id number] Health Encounter Details Date Type Department Care Team (Late st Contact Info) Description 12/04/2024 Telephone [facility] Liver Transplant at [address] [place] [phone] Kaylin Willard MSW Social History Tobacco [...] Recorded In the past 12 months has [employer], gas, oil, or water [employer] threatened to shut off services in your [...] prior to transplant and completed treatment with [facility]. SW called and spoke to [...] meets with a counselor weekly and an TIRE REBUILDER. He has spoke with his TIRE REBUILDER and is interested in Naltrexone to help reduce cravings. He will require a letter from our teamto confirm he is able to take Naltrexone, SW to coordinate with RN coordinator. SW reviewed concerns for alcohol use post-transplant and patient was aware and agreeable. Patient to meet with MEREDITH and transplant CD counselor at next clinic appointment for additional support/follow-up. 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
--- OUTSIDE RECORDS SUMMARY | 2025-01-20 11:55 | XMS_ITS | Encounter Summary ---
Author Organization [facility] Address [address] [place] [address] Care Team Providers Care Game Programmer Name Role Phone Enedina Mcguire APRN Primary Care Provider + Reason for Visit * Reason Comments Med Refill Encounter Details Date Type Department Care Team (Late st Contact Info) Description 07/20/2022 Refill [facility] GASTROENTEROLOGY [address] [facility] [address] [place] [address] Lj Tapia APRN [address] [place] [address] Secondary esophageal varices without bleeding Social History [...] Description 04/02/2025 2:15 PM EST Office Visit [facility] PAIN MANAGEMENT [address] [phone] Vazquez Christie PA-C [address] [place] [address] documented as of this encounter Visit Diagnoses Diagnosis Secondary esophageal varices without bleeding documented in this encounter Additional Health Concerns Infection Onset Date Last Indicated Resolved Time COVID Screen (preop/placement) 07/28/2022 07/28/2022 07/29/2022 12:00 AM EDT documented as of this encounter Care Teams Game Programmer Relationship Specialty Start Date End Date Enedina Mcguire APRN [address] [place] [address] PCP - General Nurse Practitioner 10/27/24 documented as of this encounter
--- OUTSIDE RECORDS SUMMARY | 2025-01-20 11:55 | XMS_ITS | Encounter Summary ---
Author Organization [facility] Address [address] [place] [address] Care Team Providers Care Import Clerk Name Role Phone Enedina Mcguire NP Primary Care Provider [phone] Maureen Pantoja RN Unavailable Unavail able Source [...] release of HIV test results or diagnoses. [id number] Health Encounter Details Date Type Department Care Team (Late st Contact Info) Description 01/09/2025 Chart Note [facility] Liver Transplant at [address] [place] [phone] Marlene Ro MA 01/09 Labs entered from [facility] Social History Tobacco Use Types Packs/Day Years Used Date Smoking Tobacco: Former Cigarettes Smokeless Tobacco: Current Alcohol Use Standard Drinks/Week Comments Yes 0 (1 standard drink = 0.6 oz pure alcohol) History of alcohol abuse, reports no use in 3 week- typically endorses use as 4 glasses of wine a days Utilities Answer Date Recorded In the past 12 months has [employer], gas, oil, or water [employer] threatened to shut off services in your [...] Progress Notes * Marlene Ro MA - 01/09/2025 2:24 PM EDT 01/09 Labs entered from [facility] documented in this encounter Plan of Treatment Not on file documented as of this encounter Procedures Procedure Name Priority Date/Time Associated Diagnosis Comments URINE PROTEIN, TOTAL, RANDOM (W/O CREATININE) Routine 01/09/2025 12:23 PM EDT HEPATIC FUNCTION PANEL Routine 01/09/2025 12:23 PM EDT TACROLIMUS LEVEL Routine 01/09/2025 12:2 3 PM EDT CREATININE, URINE, RANDOM Routine 01/09/2025 12:23 PM EDT URINALYSIS W/RFL TO MICROSCOPIC Routine 01/09/2025 12:23 PM EDT CBC AND DIFFERENTIAL Routine 01/09/2025 12:23 PM EDT MAGNESIUM Routine 01/09/2025 12:23 PM EDT RENAL FUNCTION PANEL W/O EGFR Routine 01/09/2025 12:23 PM EDT URINE CULTURE Routine 01/06/2025 12:23 PM EDT documented in this encounter Results * (ABNORMAL) Tacrolimus level (01/09/2025 12:23 PM EDT) Tacrolimus Lvl 20.7(A) 6 - 15 ng/mL Whole Blood us Historical Provider LAB BLOOD ORDERABLES Denisse l Result * (ABNORMAL) Magnesium (01/09/2025 12:23 PM EDT) Magnesium 1.3(A) 1.6 - 2.4 mg/dL Plasma [facility] Provider MD LAB BLOOD ORDERABLES [...] 1.8 10^3/mL Blood Narrative Resulting Agency Comment [facility] LAB BLOOD ORDERABLES Denisse l Result * (ABNORMAL) Renal Function Panel w/o EGFR (01/09/2025 12:23 PM EDT) Glucose 108 BUN 20 CO2 23(A) 13 - 22 mmol/L Creatinine 0.90 Potassium 4.3 Sodium 138 Chloride 107 Phosphorus 4.4 2.5 - 4.9 mg/dL Calcium 10.1 EGFR 93 mg/dL Albumin 5.0 3.5 - 5.0 g/dL Blood Narrative Resulting Agency Comment [facility] LAB BLOOD ORDERABLES Denisse l Result * Creatinine, urine, random (01/09/2025 12:23 PM EDT) Creatinine, Urine 66 Urine Narrative Resulting Agency Comment [facility] Result [facility] Provider URINE ORDERABLES Final Re sult * Urinalysis w/Rfl to Microscopic (01/09/2025 12:23 PM EDT) Glucose, UA Negative Negative Ketones, UA Negative Negative Blood, UA Negative Negative Bilirubin, UA Negative Negative Urobilinogen, UA Normal Normal Protein, UA Negative Negative Leukocyte Esterase, UA Negative Negative pH, UA 6.0 4.5 - 8.0 Specific Lenore, UA 1.020 1.005 - 1.030 Clarity, UA Clear Clear Color, UA Yellow Light Yellow, Yellow Urine Narrative Resulting Agency Comment [facility] Result [facility] Provider URINE ORDERABLES Final Re sult * Urine Protein, Tot, Random (w/o Creat) (01/09/2025 12:23 PM EDT) Total Protein, Ur 15.0 Urine Narrative Resulting Agency Comment [facility] Result [facility] Provider URINE ORDERABLES Final Re sult * Hepatic Function Panel (01/09/2025 12:23 PM EDT) Bilirubin, Direct 0.4 Bilirubin, Indirect 0.6 Alkaline Phosphatase 57 ALT 13 AST 22 Total Bilirubin 1.0 Total Protein 7.3 Plasma Narrative Resulting Agency Comment [facility] Result [facility] Provider LAB BLOOD ORDERABLES Denisse l Result * Urine culture (01/06/2025 12:23 PM EDT) Urine Culture, Comprehensive no growth URINE SPECIMEN / Unknown Result [facility] Provider MICROBIOLOGY - GENERAL OR DERABLES Final Result documented in this encounter Visit Diagnoses Not on filedocumented in this encounter Additional Health Concerns Infection Onset Date Last Indicated Resolved Time 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
--- OUTSIDE RECORDS SUMMARY | 2025-01-20 11:55 | XMS_ITS | Encounter Summary ---
Author Organization [facility] Address [address] [place] [address] Care Team Providers Care Embedded Engineer Name Role Phone Enedina Mcguire NP Primary Care Provider [phone] Alicia Rankin RN Unavailable Unavail able Source [...] release of HIV test results or diagnoses. [id number] Reason for Visit * Reason Comments Results Encounter Details Date Type Department Care Team (Riky st Contact Info) Description 11/26/2024 Telephone [facility] Liver Transplant at [address] [phone] Alicia Rankin, RN Results Social [...] In the past 12 months has e [employer], gas, oil, or water [email or web address] threatened to shut off services in your [...] encounter Visit Diagnoses Diagnosis S/P liver transplant ([facility])- Primary Alcohol use Other problems related to lifestyle Immunosuppression (CMS-HCC) Kidney transplant recipient documented in this encounter Additional Health Concerns Infection Onset Date Last Indicated Resolved Time 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
--- OUTSIDE RECORDS SUMMARY | 2025-01-20 11:55 | XMS_ITS | Encounter Summary ---
Author Organization [facility] Address [address] [place] [address] Care Team Providers Care Fight Manager Name Role Phone Enedina Mcguire NP Primary Care Provider [phone] Maureen Pantoja RN Unavailable Unavail able Source [...] release of HIV test results or diagnoses. [id number] Reason for Visit * Reason Comments Medication Refill Refill Request 1st A ttempt Encounter Details Date Type Department Care Team (Late st Contact Info) Description 10/20/2024 Refill [facility] Gastroenterology at [facility] Office [address] [place] [phone] Gerri Peterson MD [address] [place] [address] Social History Tobacco Use Types Packs/Day Years Used Date Smoking Tobacco: Former Cigarettes Smokeless Tobacco: Current Alcohol Use Standard Drinks/Week Comments Yes 0 (1 standard drink = 0.6 oz pure alcohol) History of alcohol abuse, reports no use in 3 week- typically endorses use as 4 glasses of wine a days Utilities Answer Date Recorded In the past 12 months has [employer], gas, oil, or water [email or web address] threatened to shut off services in your [...] need filled today. PHARMACY & PHONE #: [facility] [address] [place], [place] [id number] [address] DATE OF LAST APPT: 09/02/2024 Gerri Peterson [...] documented as of this encounter Care Teams Fight Manager Relationship Specialty Start Date End Date Enedina Mcguire NP [address] [place] [address] PCP - General Internal Medicine 10/05/24 Maureen Pantoja, RN Txp Post Coordinator Transplant Hepatology 10/28/24 documented as of this encounter
--- OUTSIDE RECORDS SUMMARY | 2025-01-20 11:55 | XMS_ITS | Encounter Summary ---
Author Organization [facility] Address [address] [place] [address] Care Team Providers Care Clinical Nurse Manager Name Role Phone Enedina Mcguire NP Primary Care Provider + [phone] Maureen Pantoja RN Unavailable Unavail able Source [...] release of HIV test results or diagnoses. [id number] Health Encounter Details Date Type Department Care Team (Late st Contact Info) Description 11/20/2024 Refill [facility] Liver Transplant at [address] [place] [phone] Maureen Pantoja, RN Social History Tobacco Use [...] Recorded In the past 12 months has [employer], gas, oil, or water [facility] threatened to shut off services in your [...] as of this encounter Care Teams Clinical Nurse Manager Relationship Specialty Start Date End Date Enedina Mcguire NP [address] [place] [address] PCP - General Internal Medicine 10/05/24 Maureen Pantoja, ЮЛИЯ Txp Post Coordinator Transplant Hepatology 10/28/24 documented as of this encounter
--- OUTSIDE RECORDS SUMMARY | 2025-01-20 11:55 | XMS_ITS | Encounter Summary ---
Author Organization [facility] Address [address] [place] [address] Care Team Providers Care General Assembler Name Role Phone Enedina Mcguire NP Primary Care Provider [phone] Maureen Pantoja RN Unavailable Unavail able Source [...] release of HIV test results or diagnoses. [id number] Reason for Visit * Reason Comments Critical Lab Results Encounter Details Date Type Department Care Team (Late st Contact Info) Description 01/05/2025 Telephone [facility] Liver Transplant at [address] [place] [phone] Marisela Martinez MA Critical Lab Results [...] In the past 12 months has e [employer], gas, oil, or water [employer] threatened to shut off services in [...] - 01/05/2025 11:15 AM EDT Lizeth from [facility] called to report a [...] as of this encounter Care Teams General Assembler Relationship Specialty Start Date End Date Enedina Mcguire NP [address] [place] [address] PCP - General Internal Medicine 10/05/24 Maureen Pantoja, RN Txp Post Coordinator Transplant Hepatology 10/28/24 documented as of this encounter
--- OUTSIDE RECORDS SUMMARY | 2025-01-20 11:55 | XMS_ITS | Encounter Summary ---
Author Organization [facility] Address [address] [place] [address] Care Team Providers Care Tool Room Lathe Operator Name Role Phone Enedina Mcguire NP Primary Care Provider + [phone] Maureen Pantoja RN Unavailable Unavail able Source [...] release of HIV test results or diagnoses. [id number] Health Encounter Details Date Type Department Care Team (Late st Contact Info) Description 11/21/2024 Orders Only [facility] Urology at [place] [facility] [address] [facility] [address] [place] [address] Vasile Gordillo MA Social History [...] Recorded In the past 12 months has [employer], gas, oil, or water [employer] threatened to shut off services in your [...] as of this encounter Care Teams Tool Room Lathe Operator Relationship Specialty Start Date End Date Enedina Mcguire NP [address] [place] [address] PCP - General Internal Medicine 10/05/24 Maureen Pantoja, ЮЛИЯ Txp Post Coordinator Transplant Hepatology 10/28/24 documented as of this encounter
--- OUTSIDE RECORDS SUMMARY | 2025-01-20 11:55 | XMS_ITS | Encounter Summary ---
Author Organization [facility] Address [address] [place] [address] Care Team Providers Care Upholstery Instructor Name Role Phone Enedina Mcguire NP Primary Care Provider + [phone] Maureen Pantoja RN Unavailable Unavail able Source [...] release of HIV test results or diagnoses. [id number] Health Encounter Details Date Type Department Care Team (Late st Contact Info) Description 11/24/2024 Orders Only [facility] Liver Transplant at [address] [place] [address] Maureen Pantoja, RN Social History Tobacco Use [...] Recorded In the past 12 months has [employer], gas, oil, or water [employer] threatened to shut off services in your [...] as of this encounter Care Teams Upholstery Instructor Relationship Specialty Start Date End Date Enedina Mcguire NP [address] [place] [address] PCP - General Internal Medicine 10/05/24 Maureen Pantoja, ЮЛИЯ Txp Post Coordinator Transplant Hepatology 10/28/24 documented as of this encounter
--- OUTSIDE RECORDS SUMMARY | 2025-01-20 11:55 | XMS_ITS | Encounter Summary ---
Author Organization [facility] Address [address] [place] [address] Care Team Providers Care Controller Coal Or Ore Name Role Phone Enedina Mcguire NP Primary Care Provider [phone] Maureen Pantoja RN Unavailable Unavail able Source [...] release of HIV test results or diagnoses. [id number] Reason for Visit * Reason Comments Results Encounter Details Date Type Department Care Team (Late st Contact Info) Description 12/04/2024 Telephone [facility] Liver Transplant at [address] [address] Maureen Pantoja, RN Results [...] In the past 12 months has e [employer], gas, oil, or water [employer] threatened to shut off services in your [...] 7.5 Patient to repeat labs tomorrow at [facility] prior to Liver and [...] documented as of this encounter Care Teams Controller Coal Or Ore Relationship Specialty Start Date End Date Enedina Mcguire NP [address] [place] [address] PCP - General Internal Medicine 10/05/24 Maureen Pantoja, RN Txp Post Coordinator Transplant Hepatology 10/28/24 documented as of this encounter
--- OUTSIDE RECORDS SUMMARY | 2025-01-20 11:55 | XMS_ITS | Encounter Summary ---
Author Organization Healthcare Address [address] [place] [address] Care Team Providers Care Airframe Technical Officer Name Role Phone [place], Lj Nova APRN Unavailable +[phone] Enedina Mcguire APRN Primary Care Provider + Encounter Details Date Type Department Care Team ([facility] st Contact Info) Description 11/27/2024 Telephone [facility] Nephrology, Bone & Mineral Metabolism [address] [facility], [address] [place] [address] Chelsy Villanueva Social History Tobacco [...] often do you attend chur ch or denominational services? Patient unable to answer 07/14/2024 Do you belong to any clubs o r organizations such as latter-day groups, unions, fraternal or athletic groups, or [...] Recorded Patient Health Questionnaire-2 Score 2 09/29/2024 [facility] - Occupational Stress Questionnaire Answer Date [...] drink first t deborah in the morning (EYE-BOTTLE BLOWING MACHINE TENDER) to steady your nerves or to [...] now s/p transplant can follow with transplant wave soldering machine operator, please cancel appt. documented in [...] documented as of this encounter Care Teams Airframe Technical Officer Relationship Specialty Start Date End Date Enedina Mcguire APRN [address] [place] [address] PCP - General 12/04/22 Lj Tapia APRN [address] [place] [address] Referring Physician Gastroenterology 07/18/22 documented as of this encounter
--- OUTSIDE RECORDS SUMMARY | 2025-01-20 11:55 | XMS_ITS | Encounter Summary ---
Author Organization [facility] Address [address] [place] [address] Care Team Providers Care Wrecking Crane Engine Operator Name Role Phone Enedina Mcguire NP Primary Care Provider + [phone] Maureen Pantoja RN Unavailable Unavail able Source [...] release of HIV test results or diagnoses. [id number] Health Encounter Details Date Type Department Care Team (Late st Contact Info) Description 12/04/2024 Chart Note [facility] Liver Transplant at [address] [place] [address] Marlene Ro MA FK Pending-12/04 Social History [...] In the past 12 months has e [employer], gas, oil, or water [employer] threatened to shut off services in your [...] Tacrolimus level (12/04/2024 7:47 AM EDT) Pathologist [facility] Tacrolimus Lvl 7.5 6 - 15 ng/mL Whole Blood Narrative Resulting Agency Comment [facility] Historical Provider LAB BLOOD ORDERABLES Denisse l Result * (ABNORMAL) Magnesium (12/04/2024 7:47 AM EDT) Pathologist [facility] Magnesium 1.2(A) 1.6 - 2.4 mg/dL Plasma Narrative Resulting Agency Comment [facility] us Historical Provider LAB BLOOD ORDERABLES [...] g/dL Blood Narrative Resulting Agency Comment [facility] Result [facility] MD LAB BLOOD ORDERABLES Denisse l Result * Protime-INR (12/04/2024 7:47 AM EDT) [facility] INR 0.99 0.9 - 1.1 Plasma Narrative Resulting Agency Comment [facility] Result [facility] LAB BLOOD ORDERABLES Denisse l Result * (ABNORMAL) CBC and differential (12/04/2024 7:47 AM EDT) [facility] Hemoglobin 10.7(A) 13.5 - 17.5 g/dL [...] 6.5 10^3/mL Blood Narrative Resulting Agency Comment [facility] Result [facility] LAB BLOOD ORDERABLES Denisse l Result * (ABNORMAL) Hepatic Function Panel (12/04/2024 7:47 AM EDT) [facility] Bilirubin, Direct 0.5 Bilirubin, Indirect 0.2 Alkaline Phosphatase 102 U/L ALT 14 U/L AST 15 U/L Total Bilirubin 0.7 0.1 - 1.4 mg/dL Total Protein 5.8(A) 6.4 - 8.2 g/dL Plasma Narrative Resulting Agency Comment [facility] us Historical Provider LAB BLOOD ORDERABLES Denisse l Result documented in this encounter Visit Diagnoses Not on filedocumented in this encounter Additional Health Concerns Infection Onset Date Last Indicated 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
--- OUTSIDE RECORDS SUMMARY | 2025-01-20 11:55 | XMS_ITS | Encounter Summary ---
Author Organization [facility] Address [address] [place] [address] Care Team Providers Care Teacher Of The Deaf Name Role Phone Enedina Mcguire NP Primary Care Provider [phone] Maureen Pantoja RN Unavailable Unavail able Source [...] release of HIV test results or diagnoses. [id number] Reason for Visit * Reason Comments Results Encounter Details Date Type Department Care Team (Riky st Contact Info) Description 11/21/2024 Telephone [facility] Liver Transplant at [address] [address] Maureen Pantoja, RN Results Social [...] In the past 12 months has e [employer], gas, oil, or water [employer] threatened to shut off services in your [...] this encounter Care Teams Teacher Of The Deaf Relationship Specialty Start Date End Date Enedina Mcguire NP [address] [place] [address] PCP - General Internal Medicine 10/05/24 Maureen Pantoja, RN Txp Post Coordinator Transplant Hepatology 10/28/24 documented as of this encounter
--- OUTSIDE RECORDS SUMMARY | 2025-01-20 11:55 | XMS_ITS | Encounter Summary ---
Author Organization [facility] Address [address] [place] [address] Care Team Providers Care Over The Horizon Targeting Supervisor Name Role Phone Enedina Mcguire APRN Primary Care Provider + Reason for Visit * Reason Comments Med Refill Encounter Details Date Type Department Care Team (Late st Contact Info) Description 09/12/2022 Refill [facility] GASTROENTEROLOGY [address] [facility] [address] [place] [address] Lj Tapia APRN [address] [place] [address] Social History Tobacco Use Types Packs/Day Years [...] or training? Not on file Preferred Language Chilean 07/03/2022 Sex and Gender Information Value Date Recorded Sex Assigned at Male 08/20/2024 8:28 PM EDT Legal Sex Male 7:45 AM EDT Gender Identity Not on file Sexual Orientation Not on file documented as of this encounter Plan of Treatment Upcoming Encounters Date Type Department Care Team (Late st Contact Info) Description 04/02/2025 2:15 PM EST Office Visit [facility] PAIN [facility]NAGEMENT [address] [address] Vazquez Christie PA-C [address] [place] [address] documented as of this encounter Visit Diagnoses Not on filedocumented in this encounter Care Teams Over The Horizon Targeting Supervisor Relationship Specialty Start Date End Date Enednia Mcguire APRN [address] [place] [address] PCP - General Nurse Practitioner 10/27/24 documented as of this encounter
--- OUTSIDE RECORDS SUMMARY | 2025-01-20 11:55 | XMS_ITS | Encounter Summary ---
Author Organization [facility] Address [address] [place] [address] Care Team Providers Care Operations Administrative Assistant Name Role Phone Enedina Mcguire NP Primary Care Provider + [phone] Maureen Pantoja RN Unavailable Unavail able Source [...] release of HIV test results or diagnoses. [id number] Health Encounter Details Date Type Department Care Team (Late st Contact Info) Description 01/05/2025 Chart Note [facility] Liver Transplant at [address] [place] [phone] Marlene Ro MA 01/05 Labs entered from [facility] Social History Tobacco Use Types Packs/Day Years Used Date Smoking Tobacco: Former Cigarettes Smokeless Tobacco: Current Alcohol Use Standard Drinks/Week Comments Yes 0 (1 standard drink = 0.6 oz pure alcohol) History of alcohol abuse, reports no use in 3 week- typically endorses use as 4 glasses of wine a days Utilities Answer Date Recorded In the past 12 months has e [employer], gas, oil, or water [employer] threatened to shut off services in your [...] were not included. 01/05 Labs entered from [facility] documented in this encounter Plan of [...] PCR, Blood (01/05/2025 9:27 AM EDT) Pathologist [facility] BK Virus Quant PCR PL Negative Plasma Result [facility] LAB BLOOD ORDERABLES Denisse l Result * Urine culture (01/05/2025 9:27 AM EDT) Pathologist [facility] Urine Culture, Comprehensive no growth URINE SPECIMEN / Unknown Result [facility] MICROBIOLOGY - GENERAL OR DERABLES Final Result * (ABNORMAL) Magnesium (01/05/2025 9:27 AM EDT) [facility] Magnesium 1.0(A) 1.6 - 2.4 mg/dL Plasma Narrative Resulting Agency Comment Kev Downey Result [facility] LAB BLOOD ORDERABLES Denisse l Result * (ABNORMAL) Renal Function Panel w/o EGFR (01/05/2025 9:27 AM EDT) [facility] Glucose 98 BUN 19 CO2 29(A) 13 - 22 mmol/L Creatinine 1.10 Potassium 4.0 Sodium 140 Chloride 101 Phosphorus 5.4(A) 2.5 - 4.9 mg/dL Calcium 9.7 EGFR 89 mg/dL Albumin 4.8 3.5 - 5.0 g/dL Blood Narrative Resulting Agency Comment Kev Downey Result [facility] LAB BLOOD ORDERABLES Denisse l Result * Creatinine, urine, random (01/05/2025 9:27 AM EDT) Pathologist [facility] Creatinine, Urine 80 Urine Narrative Resulting Agency Comment [facility] Result [facility] URINE ORDERABLES Final Re sult * Urinalysis w/Rfl to Microscopic (01/05/2025 9:27 AM EDT) Pathologist [facility] Glucose, UA Negative Negative Ketones, UA Negative Negative Blood, UA Negative Negative Bilirubin, UA Negative Negative Urobilinogen, UA Normal Normal Protein, UA Negative Negative Nitrite, UA Negative Negative pH, UA 6.0 4.5 - 8.0 Specific Eagan, UA 1.015 1.005 - 1.030 Clarity, UA Clear Clear Color, UA Yellow Light Yellow, Yellow Urine Narrative Resulting Agency Comment [facility] Result [facility] Provider URINE ORDERABLES Final Re sult * (ABNORMAL) CBC and differential (01/05/2025 9:27 AM EDT) [facility] Hemoglobin 11.9(A) 13.5 - 17.5 g/dL Hematocrit [...] 10^3/mL Blood Narrative Resulting Agency Comment [facility] Result [facility] Provider LAB BLOOD ORDERABLES Denisse l Result * Urine Protein, Tot, Random (w/o Creat) (01/05/2025 9:27 AM EDT) [facility] Total Protein, Ur 21.0 Urine Narrative Resulting Agency Comment [facility] Result [facility] Provider URINE ORDERABLES Final Re sult [...] documented as of this encounter Care Teams Operations Administrative Assistant Relationship Specialty Start Date End Date Enedina Mcguire NP [address] [place] [address] PCP - General Internal Medicine 10/05/24 Maureen Pantoja, ЮЛИЯ Txp Post Coordinator Transplant Hepatology 10/28/24 documented as of this encounter
--- OUTSIDE RECORDS SUMMARY | 2025-01-20 11:55 | XMS_ITS | Encounter Summary ---
Author Organization [facility] Address [address] [place] [address] Care Team Providers Care Data Security Analyst Name Role Phone Enedina Mcguire NP Primary Care Provider + [phone] aMureen Pantoja RN Unavailable Unavail able Source [...] release of HIV test results or diagnoses. [id number] Health Encounter Details Date Type Department Care Team (Late st Contact Info) Description 01/06/2025 Social Work [facility] Liver Transplant at [address] [place] [phone] Kaylin Willard MSW Social History Tobacco Use [...] Recorded In the past 12 months has [employer], gas, oil, or water [employer] threatened to shut off services in your [...] to meet with patient today. 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
--- OUTSIDE RECORDS SUMMARY | 2025-01-20 11:55 | XMS_ITS | Encounter Summary ---
Author [facility] Address [address] [place] [address] Care Team Providers Care Sneller Hand Name Role Phone Enedina Mcguire APRN Primary Care Provider + Encounter Details Date Type Department Care Team ([facility] st Contact Info) Description 10/07/2024 Results Follow-Up [facility] INTERNAL MEDICINE [address] [place] [address] Enedina Mcguire APRN [address] [place], [place] [phone] Social History Tobacco Use Types Packs/Day Years [...] Recorded In the past 12 months has [employer], [employer], oil, or water [employer] threatened to shut off services in your [...] Score 0 10/02/2022 [facility] Occupat ional Health - [...] Description 04/02/2025 2:15 PM EST Office Visit [facility] PAIN [facility]GEMENT [address] [address] Vazquez Christie PA-C [address] [place] [address] documented as of this encounter Visit Diagnoses Not on filedocumented in this encounter Additional Health Concerns Assessment Noted Time PHQ-2 Depression Total Score: 1 12/31/19 24 3:25 PM EDT documented as of this encounter Care Teams Sneller Hand Relationship Specialty Start Date End Date Enedina Mcguire APRN [address] [place] [address] PCP - General Nurse Practitioner 10/27/24 documented as of this encounter
--- OUTSIDE RECORDS SUMMARY | 2025-01-20 11:56 | XMS_ITS | Clinical Summary ---
Author Organization Healthcare Address [address] [place] [address] Care Team Providers Care Area Supervisor Name Role Phone Lj Tapia Rohini RICKS Unavailable [phone] Enedina Mcguire APRN Primary Care Provider + [...] Nephrology, Bone & Mineral Metabolism [address] [facility], [address] [place] [address] Chelsy Villanueva from Last 3 [...] answer 07/14/2024 How often do you attend [facility] or mandaen services? Patient unable to answer 07/14/2024 Do you belong to any clubs o r organizations such as bahai groups, unions, fraternal or athletic groups, or [...] Health Questionnaire-2 Score 2 09/29/2024 [facility] [...] place to sleep or slept in a group home (including now)? No 11/19/2023 PHQ-9 Answer [...] in a group home (including now)? No 07/14/2024 CAGE ASSESSMENT [...] first t deborah in the morning (EYE-SECURITY ESCORT) to steady your nerves or to get rid of a hangover? 0 07/19/2024 CAGE Questionnaire Score 2 025 Utilities Answer Date Recorded In the past 12 months has th [employer] electric, gas, oil, or water company threatened [...] 2 - 13+ 2-dose series) 10/11/2010 09/13/2010 [id number] Vaccine ( - 2024- season) 2025 03/17/2021, 07/25/2020, 06/27/2020 UKY-Influenza Vaccine (#1) 2025 [...] this topic Medical Devices Implanted Type Area Retail Cosmetics Sales Beauty Advisor Device Identifier Shelf Expiration Date Model / Serial / Lot Concerto Attica Coil-07/03/2022 Implanted:06/15 by Timmy Brunner MD (Quantity not on file) Coil Abdomen Description:Multiple Coil Co ncerto Pgla Attica Detach COILS implanted on 07/03/2022 by Tim[facility]ner [facility] at [facility]--info can be found in Care Everywhere for [facility] as of 11/15/23 Dona Coil-07/03/2022 Implanted:06/15 by Timmy Brunner MD (Quantity not on file) Coil Abdomen [employer] Description:Coil Emb Dona 3.7/Implanted: Qty: 1 on 07/03/2022 by Timmy Brunner MD at [facility] Plate Plate N/A: Neck Plug Vasc Anton Emb Amplatzer Implanted:06/15 by Timmy Brunner MD (Quantity not on file) Plug Other Vein / / [id number] Description:Plug Vasc Anton Em b Ampltz .027 [id number] - [id number] Implanted: Qty: 1 on 07/03/2022 by Timmy Brunner MD at [facility] Stent Gastro Panc 5fr 5cm - [id number] Implanted:Qty: 1 on 11/20/2023 by Devang Mcghee RN at [facility] Pancreas [id number] 08/13/2026 [id number] / / [id number] Procedures Procedure Name Priority Date/Time Associated Diagnosis [...] ORDERA BLES Final Result Performing Organization Address City/[facility]/ZIP Co de Phone Number [facility] [address] [place] [address] * Hepatitis C Antibody (07/14/2024 4:31 PM EST) Hepatitis C Antibody Negative Negative 07/14/2024 5:27 PM EST [facility] Blood Venous blood specimen / Unknown Venipuncture / Unknown 07/14/2024 4:31 PM EST 07/14/2024 4:54 PM EST Laureano Salinas APRN, DNP LAB BLOOD ORDERA BLES Final Result Performing Organization Address City/[facility] Co de Phone Number [facility] [address] [place] [address] from Last 3 Months or Most Recently Relevant to [place] [address] [place] [address] [facility] Advance Directives * Full Code (Latest Code Status on File) Date Activated Date Inactivated Comments 07/11/2024 11:04 PM 07/23/2024 6:27 PM Question Answer Comments Patient has decision-making capacity? Yes * Full Code Date Activated Date Inactivated Comments 11/14/2023 10:15 PM 11/27/2023 9:08 PM Question Answer Comments Patient has decision-making capacity? Yes Care Teams Area Supervisor Relationship Specialty Start Date End Date Enedina Mcguire APRN [address] [place] [address] PCP - General 12/04/22 Lj Tapia APRN [address] [place] [address] Referring Physician Gastroenterology 07/18/22
--- OUTSIDE RECORDS SUMMARY | 2025-01-20 11:56 | XMS_ITS | Encounter Summary ---
Author Organization [facility] Address [address] [place] [address] Care Team Providers Care Trail Construction Worker Name Role Phone Enedina Mcguire NP Primary Care Provider + [phone] Maureen Pantoja RN Unavailable Unavail able Source [...] release of HIV test results or diagnoses. [id number] Health Encounter Details Date Type Department Care Team (Late st Contact Info) Description 12/09/2024 Orders Only [facility] Liver Transplant at [address] [place] [address] Maureen Pantoja, RN Social History Tobacco Use [...] Recorded In the past 12 months has [employer], gas, oil, or water [employer] threatened to shut off services in your [...] documented as of this encounter Care Teams Trail Construction Worker Relationship Specialty Start Date End Date Enedina Mcguire NP [address] [place] [address] PCP - General Internal Medicine 10/05/24 Maureen Pantoja, ЮЛИЯ Txp Post Coordinator Transplant Hepatology 10/28/24 documented as of this encounter
--- OUTSIDE RECORDS SUMMARY | 2025-01-20 11:56 | XMS_ITS | Encounter Summary ---
Author Organization [facility] Address [address] [place] [address] Care Team Providers Care Svp Marketing Name Role Phone Enedina Mcguire APRN Primary [...] days sober on 08-05-2024 [facility] Utilities Answer Date Recorded In the past 12 months has [employer], gas, oil, or water [employer] threatened to shut off services in your [...] Brief Depression Severity Measure Score 0 10/02/2022 [facility] Export of Occupat ional Health - Occupational Stress [...] Description 04/02/2025 2:15 PM EST Office Visit [facility] [address] [address] Vazquez Christie PA-C [address] [place] [address] documented as of this encounter Visit Diagnoses Not on filedocumented in this encounter Additional Health Concerns Assessment Noted Time PHQ-2 Depression Total Score: 1 12/31/19 24 3:25 PM EDT documented as of this encounter Care Teams Svp Marketing Relationship Specialty Start Date End Date Enedina Mcguire APRN [address] [place] [address] PCP - General Nurse Practitioner 10/27/24 documented as of this encounter
--- OUTSIDE RECORDS SUMMARY | 2025-01-20 11:56 | XMS_ITS | Encounter Summary ---
Author Organization [facility] Address [address] [place] [address] Care Team Providers Care Experience Design Director Name Role Phone Enedina Mcguire NP Primary Care Provider [phone] Maureen Pantoja RN Unavailable Unavail able Source [...] release of HIV test results or diagnoses. [id number] Reason for Visit * Reason Comments Results Encounter Details Date Type Department Care Team (Riky st Contact Info) Description 12/12/2024 Telephone [facility] Liver Transplant at [address] [address] Maureen Pantoja, RN Results Social [...] In the past 12 months has e [employer], gas, oil, or water [employer] threatened to shut off services in your [...] documented as of this encounter Care Teams Experience Design Director Relationship Specialty Start Date End Date Enedina Mcguire NP [address] [place] [address] PCP - General Internal Medicine 10/05/24 Maureen Pantoja, RN Txp Post Coordinator Transplant Hepatology 10/28/24 documented as of this encounter
--- OUTSIDE RECORDS SUMMARY | 2025-01-20 11:56 | XMS_ITS | Encounter Summary ---
Author Organization Healthcare Address [address] [place] [address] Care Team Providers Care Software Engineer Advisor Name Role Phone Jony Conde MD Primary Care Provider [phone] Lj Tapia [employer] SALES MANAGER Unavailable [phone] Enedina Mcguire [employer] MANAGER Primary Care Provider + Nuria Fall CHIEF UNIT FORESTER Unavailable Unavaila ble Encounter Details Date Type Department Care Team (Late st Contact Info) Description 07/04/2022 Orders Only External Location [address] [place] [address] Presley Montes De Oca MD [address] [id number] Social History Tobacco Use Types Packs/Day Years [...] on filedocumented in this encounter Care Teams Software Engineer Advisor Relationship Specialty Start Date End Date Jony Conde MD [address] [place] [address] [address] [place], [place] [id number] PCP - General 07/18/22 12/03/22 Enedina Mcguire APRN [address] [place] [address] PCP - General 12/04/22 Lj Tapia APRN [address] [place] [address] [id number] Referring Physician Gastroenterology 07/18/22 Nuria Fall LPN [facility] TCM Nurse 07/24/24 08/23/24 documented as of this encounter
--- OUTSIDE RECORDS SUMMARY | 2025-01-20 11:56 | XMS_ITS | Encounter Summary ---
Author Organization Healthcare Address [address] [place] [address] Care Team Providers Care Venetian Blind Mechanic Name Role Phone Jony Conde MD Primary Care Provider [phone] Lj Tapia BROADBAND TECHNICIAN Unavailable [phone] Enedina Mcugire BROADBAND TECHNICIAN Primary Care Provider + Nuria Fall HISTORY DEPARTMENT CHAIR Unavailable Unavaila ble Encounter Details Date Type Department Care Team (Late st Contact Info) Description 07/03/2022 Orders Only External Location [address] [place] [address] Presley Montes De Oca MD [address] [id number] Social History Tobacco Use Types Packs/Day Years [...] on filedocumented in this encounter Care Teams Venetian Blind Mechanic Relationship Specialty Start Date End Date Jony Conde MD [address] [place] [address] [address] [place] [address] PCP - General 07/18/22 12/03/22 Enedina Mcguire APRN [address] [place] [address] PCP - General 12/04/22 Lj Tapia APRN [facility] [place], [place] [id number] Referring Physician Gastroenterology 07/18/22 Nuria Fall LPN [facility] TCM Nurse 07/24/24 08/23/24 documented as of this encounter
--- OUTSIDE RECORDS SUMMARY | 2025-01-20 11:56 | XMS_ITS | Encounter Summary ---
Author Organization [facility] Address [address] [place] [address] Care Team Providers Care Baling Machine Operator Name Role Phone Enedina Mcguire NP Primary Care Provider [phone] Maureen Pantoja RN Unavailable Unavail able Source [...] release of HIV test results or diagnoses. [id number] Health Encounter Details Date Type Department Care Team (Late st Contact Info) Description 12/09/2024 Chart Note [facility] Liver Transplant at [address] [place] [phone] Marlene Ro MA Social History Tobacco Use [...] Recorded In the past 12 months has [employer], gas, oil, or water [employer] threatened to shut off services in your [...] No growth URINE SPECIMEN / Unknown Result [facility] Provider MICROBIOLOGY - GENERAL OR DERABLES Final Result * (ABNORMAL) Magnesium (12/08/2024 10:43 AM EDT) Pathologist [facility] Magnesium 1.3(A) 1.6 - 2.4 mg/dL Plasma Narrative Resulting Agency Comment [facility] Result [facility] LAB BLOOD [...] Blood Narrative Resulting Agency Comment [facility] Result [facility] LAB BLOOD ORDERABLES Denisse l Result * Creatinine, urine, random (12/08/2024 10:43 AM EDT) [facility] Creatinine, Urine 65 Urine Narrative Resulting Agency Comment [facility] Result [facility] Provider URINE ORDERABLES Final Re sult * Urinalysis w/Rfl to Microscopic (12/08/2024 10:43 AM EDT) Pathologist [facility] Glucose, UA Negative Negative Ketones, UA Negative Negative Blood, UA Negative Negative Bilirubin, UA Negative Negative Urobilinogen, UA Normal Normal Protein, UA Negative Negative Nitrite, UA Negative Negative Leukocyte Esterase, UA Negative Negative pH, UA 6.0 4.5 - 8.0 Specific [place], UA 1.010 1.005 - 1.030 Clarity, UA Clear Clear Color, UA Yellow Light Yellow, Yellow Urine Narrative Resulting Agency Comment [facility] Result [facility] Provider URINE ORDERABLES Final Re sult * Urine Protein, Tot, Random (w/o Creat) (12/08/2024 10:43 AM EDT) Total Protein, Ur 11.0 Urine Narrative Resulting Agency Comment [facility] Result [facility] Provider URINE ORDERABLES Final Re sult * (ABNORMAL) Hepatic Function Panel (12/08/2024 10:43 AM EDT) Pathologist [facility] Bilirubin, Direct 0.1 Bilirubin, Indirect 0.2 Alkaline Phosphatase 80 U/L ALT 14 U/L AST 16 U/L Total Bilirubin 0.3 0.1 - 1.4 mg/dL Total Protein 5.6(A) 6.4 - 8.2 g/dL Plasma Narrative Resulting Agency Comment [facility] Result [facility] Provider LAB BLOOD ORDERABLES Denisse [...] 5.1 10^3/mL Blood Narrative Resulting Agency Comment [facility] us Historical Provider LAB BLOOD ORDERABLES Denisse l Result documented in this encounter Visit Diagnoses Not on filedocumented in this encounter Additional Health Concerns Infection Onset Date Last Indicated 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
--- OUTSIDE RECORDS SUMMARY | 2025-01-20 11:56 | XMS_ITS | Encounter Summary ---
Author Organization [facility] Address [address] [place] [address] Care Team Providers Care Ground Crew Chief Name Role Phone Enedina Mcguire NP Primary Care Provider [phone] Maureen Pantoja RN Unavailable Unavail able Source [...] release of HIV test results or diagnoses. [id number] Reason for Referral * Diagnostic Lab (Routine) - New Request Specialty Diagnoses / Procedures Referred By Shane hernadez Referred To Contact Diagnoses Kidney transplant recipient Liver transplant recipient (CMS-HCC) Viral disease exposure Immunosuppression ([facility]) Procedures BK Virus Quantitative by PCR, Blood [facility] Liver Transplant at [address] [address] Phone: tel: fax: Referral ID Status Reason Start Date Expiration Date V isits Requested Visits Authorized [id number] New Request 12/09/2024 06/07/2025 1 1 * Diagnostic Lab (Routine) - New Request Specialty Diagnoses / Procedures Referred By Contac t Referred To Contact Diagnoses Kidney transplant recipient Liver transplant recipient (CMS-HCC) Viral disease exposure Immunosuppression (CMS-HCC) Procedures BK Virus Quantitative by PCR, Blood [facility] Liver Transplant at [address] [address] Phone: tel: fax: Referral ID Status Reason Start Date Expiration Date V isits Requested Visits Authorized [id number] New Request 12/09/2024 06/07/2025 1 1 * Diagnostic Lab (Routine) - New Request Specialty Diagnoses / Procedures Referred By Contac t Referred To Contact Diagnoses Kidney transplant recipient Liver transplant recipient (CMS-HCC) Viral disease exposure Immunosuppression (CMS-HCC) Procedures BK Virus Quantitative by PCR, Blood [facility] Liver Transplant at [address] [address] Phone: tel: fax: Referral ID Status Reason Start Date Expiration Date V isits Requested Visits Authorized [id number] New Request 12/09/2024 06/07/2025 1 1 * Diagnostic Lab (Routine) - New Request Specialty Diagnoses / Procedures Referred By Contac t Referred To Contact Diagnoses Kidney transplant recipient Liver transplant recipient (CMS-HCC) Viral disease exposure Immunosuppression (CMS-HCC) Procedures BK Virus Quantitative by PCR, Blood [facility] Liver Transplant at [address] [address] Phone: tel: fax: Referral ID Status Reason Start Date Expiration Date V isits Requested Visits Authorized [id number] New Request 12/09/2024 06/07/2025 1 1 Encounter Details Date Type Department Care Team (Late st Contact Info) Description 12/09/2024 Orders Only [facility] Liver Transplant at [address] [place] [address] Maureen Pantoja RN Kidney transplant [...] as 4 glasses of wine a days [employer] Answer Date Recorded In the past 12 months has th e [employer], gas, oil, or water company threatened [...] Routine Kidney transplant recipient Liver transplant recipient ([facility]CC) Viral disease exposure Immunosuppression ([facility]CC) Expected: 01/27/2025 (Approximate), Expires: 06/11/2026 BK Virus Quantitative by PCR, Blood Lab Routine Kidney transplant recipient Liver transplant recipient ([facility]) Viral disease exposure Immunosuppression (CMS-HCC) Expected: 04/28/2025 (Approximate), Expires: 06/11/2026 BK Virus Quantitative by PCR, Blood Lab Routine Kidney transplant recipient Liver transplant recipient ([facility]) Viral disease exposure Immunosuppression ([facility]) Expected: 07/27/2025 (Approximate), Expires: 06/11/2026 BK Virus Quantitative by PCR, Blood Lab Routine Kidney transplant recipient Liver transplant recipient ([facility]) Viral disease exposure Immunosuppression ([facility]) Expected: 10/27/2025 (Approximate), Expires: 06/11/2026 documented as [...] as of this encounter Care Teams Ground Crew Chief Relationship Specialty Start Date End Date Enedina Mcguire NP [address] [place], [place] [id number] PCP - General Internal Medicine 10/05/24 Maureen Pantoja, ЮЛИЯ Txp Post Coordinator Transplant Hepatology 10/28/24 documented as of this encounter
--- OUTSIDE RECORDS SUMMARY | 2025-01-20 11:56 | XMS_ITS | Clinical Summary ---
Author Organization [facility] Address [address] [place] [id number] Care Team Providers Care Kiln Head House Operator Name Role Phone Enedina Mcguire APRN [...] Type Department Care Team Description 01/08/2025 Telephone [facility] [address] [facility] [address] [place] [address] Vazquez Christie PA-C Appointment 01/01/2025 2:15 PM EDT Office Visit [facility] [address] [facility] [address] [place] [address] Vazquez Christie PA-C Cervical radiculopathy (Primary Dx); Long-term use of high-risk medication; Cervical spondylosis without myelopathy; Cervical pain (neck); Therapeutic drug monitoring; Chronic pain syndrome 01/01/2025 Travel 12/12/2024 Refill [facility] [address] [place] [address] Enedina Mcguire APRN Acquired hypothyroidism; Secondary esophageal varices without bleeding 12/05/2024 Telephone [facility] [address] [place] [address] Vazquez Christie PA-C 12/04/2024 2:55 PM EDT Lab [facility] [place] [address] [facility] [address] [place] [address] Therapeutic drug monitoring 12/04/2024 2:15 PM EDT Office Visit [facility] [address] [facility] [address] [place] [address] Vazquez Christie PA-C Cervical radiculopathy (Primary Dx); Long-term use of high-risk medication; Cervical pain (neck); Cervical spondylosis without myelopathy; Therapeutic drug monitoring; Chronic pain syndrome 12/04/2024 Travel 10/27/2024 Telephone [facility] [address] [place] [address] Enedina Mcguire APRN CALLBACK 10/22/2024 2:15 PM EDT Office Visit [facility] [address] [facility] [address] [place] [id number] Vazquez Christie PA-C Cervical radiculopathy (Primary Dx); Cervical spondylosis without myelopathy; Cervical pain (neck); Long-term use of high-risk medication; Therapeutic drug monitoring 10/22/2024 Travel 10/21/2024 Telephone [facility] [address] [place] [address] Enedina Mcguire APRN New Med Request 10/20/2024 Telephone [facility] [address] [facility] [address] [place] [address] BURGESS - RX REFILL 10/20/2024 Telephone [facility] [address] [place] [address] Enedina Mcguire APRN Med Management 10/20/2024 Refill [facility] [address] [place] [address] Enedina Mcguire APRN Hepatic encephalopathy; Acquired hypothyroidism; Secondary esophageal varices without bleeding from Last 3 Months Immunizations Immunization Administration [...] 30 days sober on 08-05-2024 [facility] Utilities Answer Date Recorded In the past 12 months has e [employer], gas, oil, or water [employer] threatened to shut off services in your [...] Brief Depression Severity Measure Score 0 10/02/2022 [facility] - [...] GED or equivalent No 07/09/2024 Preferred Language Yoruba 07/09/2024 PHQ-2 Answer Date Recorded Patient Health [...] 2:15 PM EST Office Visit [facility] [address] [facility] [address] [place] [address] Vazquez Christie PA-C [address] [facility] [address] [place] [address] Health Maintenance Due Date Last Done Comments [...] 0-49 Discontinued Medical Devices Implanted Type Area Collateral Clerk Device Identifier Shelf Expiration Date Model / Serial / Lot Coil Concerto Pgla Hel Detach Sys 10mm 30cm - [id number] Implanted:Qty: 1 on 07/03/2022 by Timmy Brunner MD at [facility] Implant Left: Vein EV3 A [employer] [id number] / / [id number] Description:Coil is in the s hort gastric vein Coil Concerto Nyl [place] Detach Sys 10mm 30cm - [id number] Implanted:Qty: 1 on 07/03/2022 by Timmy Brunner MD at [facility] Implant Left: Vein EV3 A [employer]IAds[employer] [id number] / / [id number] Description:Short gastric ve in Coil Concerto Nyl [place] Detach Sys 10mm 30cm - [id number] Implanted:Qty: 1 on 07/03/2022 by Timmy Brunner MD at [facility] Implant Left: Vein EV3 A [employer] [id number] / / [id number] Description:Short gasrtic ve in Coil Concerto Nyl [place] Detach Sys 10mm 30cm - [id number] Implanted:Qty: 1 on 07/03/2022 by Timmy Brunner MD at [facility] Implant Left: Vein EV3 A [employer] [id number] / / [id number] Description:Short gastric ve in Coil Concerto Nyl [place] Detach Sys 8mm 30cm - [id number] Implanted:Qty: 1 on 07/03/2022 by Timmy Brunner MD at [facility] Implant Left: Vein EV3 A [employer] [id number] / / [id number] Description:Short gastric ve in Coil Concerto Nyl [place] Detach Sys 8mm 30cm - [id number] Implanted:Qty: 1 on 07/03/2022 by Timmy Brunner MD at [facility] Implant Left: Vein EV3 A [employer] [id number] / / [id number] Description:Short gastric ve in Sys Del Liq Emb Trufill Nbca 1g Vl - [id number] Implanted:Qty: 1 on 07/03/2022 by Timmy Brunner MD at [facility] Implant Left: Vein [facility] [id number] / / [id number] Description:Short gastric ve in Plug Vasc Anton Emb Ampltz .027 2aw8x39nn - [id number] Implanted:Qty: 1 on 07/03/2022 by Timmy Brunner MD at [facility] Implant Left: Vein [employer] [id number] / / [id number] Description:Coronary vein Coil Concerto Nyl [place] Detach Sys 8mm 30cm - [id number] Implanted:Qty: 1 on 07/03/2022 by Timmy Brunner MD at [facility] Implant Left: Vein EV3 A [employer] [id number] / / [id number] Description:CORONARY VEIN Gelatin Emb Embocube 5.02mm 50mg Red - [id number] Implanted:Qty: 1 on 07/03/2022 by Timmy Brunner MD at [facility] Implant Left: Vein [employer] [id number] / / [id number] Description:SHORT GASTRIC VE IN Coil Emb Dona 3.7/Lp .035in 14cm 12mm - [id number] Implanted:Qty: 1 on 07/03/2022 by Timmy Brunner MD at [facility] Implant Left: Vein DAVID [id number] / / [id number] Description:SHORT GASTRIC VE IN Coil Concerto Pgla [place] Detach Sys 12mm 30cm - [id number] Implanted:Qty: 1 on 07/03/2022 by Timmy Brunner MD at [facility] Implant Left: Vein EV3 A [employer] [id number] / / [id number] Description:Short gastric ve in Coil Concerto Nyl [place] Detach Sys 8mm 30cm - [id number] Implanted:Qty: 1 on 07/03/2022 by Timmy Brunner MD at [facility] Implant Left: Vein EV3 A [employer] [id number] / / [id number] Description:SHORT GASTRIC VE IN Coil Concerto Nyl [place] Detach Sys 8mm 30cm - [id number] Implanted:Qty: 1 on 07/03/2022 by Timmy Brunner MD at [facility] Implant Left: Vein EV3 A [employer] [id number] / / [id number] Description:Short gastric ve in Coil Concerto Nyl [place] Detach Sys 8mm 30cm - [id number] Implanted:Qty: 1 on 07/03/2022 by Timmy Brunner MD at [facility] Implant Left: Vein EV3 A [employer] [id number] / / [id number] Description:Short gastric ve in Coil Concerto Pgla Hel Detach Sys 14mm 40cm - [id number] Implanted:Qty: 1 on 07/03/2022 by Timmy Brunner MD at [facility] Implant Left: Vein EV3 A [employer] [place] [id number] / / [id number] Description:Short gastric ve in Coil Concerto Pgla Hel Detach Sys 14mm 40cm - [id number] Implanted:Qty: 1 on 07/03/2022 by Timmy Brunner MD at [facility] Implant Left: Vein EV3 A [employer] [id number] / / [id number] Description:Short gastric ve in Coil Concerto Pgla [place] Detach Sys 14mm 30cm - [id number] Implanted:Qty: 1 on 07/03/2022 by Timmy Brunner MD at [facility] Implant Left: Vein EV3 A [employer] [place] [id number] / / [id number] Description:Short gastric ve in Coil Concerto Pgla [place] Detach Sys 14mm 30cm - [id number] Implanted:Qty: 1 on 07/03/2022 by Timmy Brunner MD at [facility] Implant Left: Vein EV3 A [employer] [id number] / / [id number] Description:Short gastric ve in Coil Concerto Pgla [place] Detach Sys 14mm 30cm - [id number] Implanted:Qty: 1 on 07/03/2022 by Timmy Brunner MD at [facility] Implant Left: Vein EV3 A [employer] [id number] / / [id number] Description:Short gastric ve in Procedures Procedure Name [...] - LABS 11/06/2024 SCANNED - LABS 11/06/2024 HEPATITIS PANEL, ACUTE Add-On 07/08/2024 10:33 PM EST LIPID PANEL Routine 10/15/2023 4:16 PM EDT Mixed hyperlipidemia from Last 3 Months or Most Recently Relevant to Health Maintenance Results * LABS SCANNED (12/08/2024) Only the most recent of20 resultswithin the time period is included. us Enedina Mcguire APRN LAB BLOOD ORDERABLES [facility] Result * (ABNORMAL) Urine Drug Screen - Urine, Clean Catch (12/04/2024 2:50 PM EDT) THC, Screen, Urine Positive(A) Negative 12/04 8:32 PM EDT [facility] Phencyclidine (PCP), Urine Negative Negative 12/04/2024 8:32 PM EDT [facility] Cocaine Screen, Urine Negative Negative 12/04/2024 8:32 PM EDT [facility] Methamphetamine, Ur Negative Negative 12/04/2024 8:32 PM EDT [facility] Opiate Screen Positive(A) Negative 12/04/2024 8:32 PM EDT [facility] Amphetamine Screen, Urine Negative Negative 12/04/2024 8:32 PM EDT [facility] Benzodiazepine Screen, Urine Negative Negative 12/04/2024 8:32 PM EDT [facility] Tricyclic Antidepressants Screen Negative Negative 12/04/2024 8:32 PM EDT [facility] Methadone Screen, Urine Negative Negative 12/04/2024 8:32 PM EDT [facility] Barbiturates Screen, Urine Negative Negative 12/04/2024 8:32 PM EDT [facility] Oxycodone Screen, Urine Negative Negative 12/04/2024 8:32 PM EDT [facility] Buprenorphine, Screen, Urine Negative Negative 12/04/2024 8:32 PM EDT [facility] Urine Urine specimen obtained by clean catch procedure / Unknown Collection / Unknown 12/04/2024 2:50 PM EDT 12/04/2024 2:54 PM EDT [facility] - 12/04/2024 8:32 PM EDT Cutoff [...] particularly when unconfirmed results are used. us [employer] Otilio Christie PA-C URINE ORDERABLES Final R esult [facility]
[address] [place] [address], * Fentanyl, Urine - Urine, Clean Catch (12/04/2024 2:50 PM EDT) Fentanyl, Urine Negative Negative 12/04/2024 9:15 PM EDT [facility] Urine Urine specimen obtained by clean catch procedure / Unknown Collection / Unknown 12/04/2024 2:50 PM EDT 12/04/2024 2:54 PM EDT [facility] - 12/04/2024 9:15 PM EDT Negative [...] Christie PA-C URINE ORDERABLES Final R esult [facility]
[address] [place] [address], * (ABNORMAL) Lipid Panel (10/15/2023 4:16 PM EDT) Total Cholesterol 234(H) 0 - 200 mg/dL 10/16/2023 2:33 AM EDT [facility] Triglycerides 203(H) 0 - 150 mg/dL 10/16/2023 2:33 AM EDT [facility] HDL Cholesterol 41 40 - 60 mg/dL 10/16/2023 2:33 AM EDT [facility] LDL Cholesterol 156(H) 0 - 100 mg/dL 10/16/2023 2:33 AM EDT [facility] VLDL Cholesterol 37 5 - 40 mg/dL 10/16/2023 2:33 AM EDT [facility] LDL/HDL Ratio 3.72 10/16/2023 2:33 AM EDT [facility] Blood Venipuncture / Unknown 10/15/2023 4:16 PM EDT 10/15/2023 4:16 PM EDT Narrative [facility] - 10/16/2023 2:33 AM EDT [...] High 160-189 mg/dL Very High >189 mg/dL us Enedina Mcguire MEMBERSHIP SALES ADVISOR LAB BLOOD ORDERABLES Fin al Result [facility]
[address] [place] [address], from Last 3 Months or Most Recently Relevant to Health Maintenance Insurance UMR Advance Directives * CPR (Attempt [...] Of Support Discussed With: Patient Care Teams Kiln Head House Operator Relationship Specialty Start Date End Date Enedina Mcguire, RAMBO [address] [place] [address] PCP - General Nurse Practitioner 10/27/24
--- OUTSIDE RECORDS SUMMARY | 2025-01-20 11:56 | XMS_ITS | Encounter Summary ---
Author Organization [facility] Address [address] [place] [address] Care Team Providers Care Incubator Operator Name Role Phone Enedina Mcguire NP Primary Care Provider + [phone] Maureen Pantoja RN Unavailable Unavail able Source [...] release of HIV test results or diagnoses. [id number] Health Encounter Details Date Type Department Care Team (Late st Contact Info) Description 12/09/2024 Social Work [facility] Liver Transplant at [address] [place] [phone] Kaylin Willard MSW Social History Tobacco Use [...] Recorded In the past 12 months has [employer], gas, oil, or water [employer] threatened to shut off services in your [...] AM 11/25/2024 3:00 PM 12/10/2024 9:00 AM [id number] Score MAGALYS-7 Total Score 17 13 4 [...] He notes he meets with an SUPERVISOR HISTOLOGY weekly and a counselor weekly through [facility]. He was agreeable to seeing transplant CD counselortoday as well. Of note, pharmacy notified transplant staff that patient also prescribed Tramadol by his pain clinic and is unable to release Naltrexone script at this time. SW to continue to follow. 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
--- OUTSIDE RECORDS SUMMARY | 2025-01-20 11:56 | XMS_ITS | Encounter Summary ---
Author Organization [facility] Address [address] [place] [address] Care Team Providers Care Respiratory Equipment Assistant Name Role Phone Enedina Mcguire NP Primary Care Provider [phone] Maureen Pantoja RN Unavailable Unavail able Source [...] release of HIV test results or diagnoses. [id number] Health Encounter Details Date Type Department Care Team (Late st Contact Info) Description 12/09/2024 Telephone [facility] Liver Transplant at [address] [place] [phone] Mitzy Gill MA Social History Tobacco [...] In the past 12 months has e [employer], gas, oil, or water company threatened to [...] call pharmacy with update. Patient notified via [employer]. * Mitzy Gill MA - 12/10/2024 10:09 [...] I stated we received a call from [facility] stating he picked up a tramadol prescription on 12/05 and there is an issue with him having naltrexone prescribed as well. Per CC ЮЛИЯ Reddy, Pt cannot have naltrexone filled while actively taking tramadol. Spoke to Kirt at [facility] and advised him not [...] was ordered on 12/05/24 by aprovider named Vazqeuz Christie. Txp MA to contact pharmacy and ask they they please file prescription for naltrexone and not fill at this time. Txp MA to update patient that naltrexone prescription can not be filled while he is concurrently prescribed tramadol. Message routed to Txp Provider and Txp SW for communication. * Mitzy Gill MA - 12/09/2024 12:41 PM EDT Kirt from [facility] states they received a [...] as of this encounter Care Teams Respiratory Equipment Assistant Relationship Specialty Start Date End Date Enedina Mcguire NP [address] [place] [address] PCP - General Internal Medicine 10/05/24 Maureen Pantoja, ЮЛИЯ Txp Post Coordinator Transplant Hepatology 10/28/24 documented as of this encounter
--- OUTSIDE RECORDS SUMMARY | 2025-01-20 11:56 | XMS_ITS | Encounter Summary ---
Author Organization Healthcare Address [address] [place] [address] Care Team Providers Care Rack Loader Name Role Phone Jony Conde MD Primary Care Provider [phone] Lj Tapia RACING MANAGER Unavailable [phone] Enedina Mcguire APRN Primary Care Provider + Nuria Fall ECONOMICS CONSULTANT Unavailable Unavaila ble Encounter Details Date Type Department Care Team (Late st Contact Info) Description 07/02/2022 Orders Only External Location [address] [place] [address] Provider, External Social History Tobacco Use Types [...] on filedocumented in this encounter Care Teams Rack Loader Relationship Specialty Start Date End Date Jony Conde MD [address] [facility] [address] [place], [place] [id number] PCP - General 07/18/22 12/03/22 Enedina Mcguire APRN [address] [place] [address] PCP - General 12/04/22 Lj Tapia APRN [address] [place] [address] Referring Physician Gastroenterology 07/18/22 Nuria Fall LPN [facility] TCM Nurse 07/24/24 08/23/24 documented as of this encounter
--- OUTSIDE RECORDS SUMMARY | 2025-01-20 11:56 | XMS_ITS | Encounter Summary ---
Author Organization [facility] Address [address] [place] [address] Care Team Providers Care Line Service Person Name Role Phone Jony Conde MD Primary Care Provider [phone] Lj Tapia TRAILER TECHNICIAN Unavailable [phone] Enedina Mcguire TRAILER TECHNICIAN Primary Care Provider + Nuria Fall TYPING CHECKER Unavailable Unavaila ble Encounter Details Date Type Department Care Team (Late st Contact Info) Description 07/04/2022 Orders Only External Location [address] [place] [address] Presley Montes De Oca MD [address] [place] [id number] Social History Tobacco Use Types Packs/Day Years [...] on filedocumented in this encounter Care Teams Line Service Person Relationship Specialty Start Date End Date Jony Conde MD [address] [facility] [address] [place] [address] PCP - General 07/18/22 12/03/22 Enedina Mcguire APRN [address] [place] [address] PCP - General 12/04/22 Lj Tapia APRN [address] [place] [address] Referring Physician Gastroenterology 07/18/[address] [facility] TCM Nurse 07/24/24 08/23/24 documented as of this encounter
--- OUTSIDE RECORDS SUMMARY | 2025-01-20 11:56 | XMS_ITS | Encounter Summary ---
Author Organization [facility] Address [address] [place] [address] Care Team Providers Care Sweatband Drummer Name Role Phone Enedina Mcguire APRN Primary Care Provider + Encounter Details Date Type Department Care Team (Late st Contact Info) Description 12/05/2024 Telephone [facility] PAIN [facility]EMENT [address] [facility] [place] [address] Vazquez Christie PA-C [address] [place] [address] Social History Tobacco Use Types Packs/Day Years Used Date Smoking Tobacco: Former Cigarettes 4 20 Passive Smoke Exposure: Past Smokeless Tobacco: Current Comments:MARIJUANA USE ABOUT 2X PER WEEK - reports no use 08-05-2024 Alcohol Use Standard Drinks/Week Comments Not Currently 0 (1 standard drink = 0.6 oz pure alcohol) 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 This did reveal positive THC. Discussed since tramadol is a controlled substance that significant acute this is violation of controlled substance agreement. We will proceed with tramadol taper. He voiced understanding documented in this encounter Plan of Treatment Upcoming Encounters Date Type Department Care Team ([facility] st Contact Info) Description 04/02/2025 2:15 PM EST Office Visit [facility]IN [facility]EMENT [address] [facility] [address] [place] [address] Vazquez Christie PA-C [address] [facility] [address] [place] [address] documented as of this encounter Visit Diagnoses Not on filedocumented in this encounter Additional Health Concerns Assessment Noted Time PHQ-2 Depression Total Score: 1 12/31/19 24 3:25 PM EDT documented as of this encounter Care Teams Sweatband Drummer Relationship Specialty Start Date End Date Enedina Mcguire APRN [address] [place] [address] PCP - General Nurse Practitioner 10/27/24 documented as of this encounter
--- OUTSIDE RECORDS SUMMARY | 2025-01-20 11:57 | XMS_ITS | Encounter Summary ---
Author Organization [facility] Address [address] [place] [address] Care Team Providers Care Pulverizer Mill Operator Name Role Phone Enedina Mcguire APRN Primary Care Provider + Reason for Visit * Reason Onset Date Comments Appointment 01/08/2025 Encounter Details Date Type Department Care Team (Late st Contact Info) Description 01/08/2025 Telephone [facility] PAIN MANAGEMENT [address] [place] [phone] Vazquez Christie PA-C [address] [place] [address] Appointment Social History Tobacco Use Types Packs/Day Years Used Date Smoking Tobacco: Former Cigarettes 4 20 Passive Smoke Exposure: Past Smokeless Tobacco: Current Comments:MARIJUANA USE ABOUT 2X PER WEEK - reports no use 08-05-2024 Alcohol Use Standard Drinks/Week Comments Not Currently 0 (1 standard drink = 0.6 oz pure alcohol) 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 [facility] Utilities Answer Date Recorded In the past 12 months has [employer], gas, oil, or water [employer] threatened to shut off services in your [...] 0 10/02/2022 [facility] Occupat ional [facility] - Occupational Stress Questionnaire Answer Date [...] to patient: Self Best call back number: [phone] Chief complaint: C2/3 and C6/7 Medial branch [...] to patient: Self Best call back number: [phone] Patient is needing: PATIENT IS RETURNING A PHONE CALL TO [facility] - documented in this encounter Plan of Treatment Upcoming Encounters Date Type Department Care Team (Late st Contact Info) Description 04/02/2025 2:15 PM EST Office Visit [facility] PAIN MANAGEMENT [address] [address] Vazquez Christie PA-C [address] [address] documented as of this encounter Visit Diagnoses Not on filedocumented in this encounter Additional Health Concerns Assessment Noted Time PHQ-2 Depression Total Score: 1 12/31/19 24 3:25 PM EDT documented as of this encounter Care Teams Pulverizer Mill Operator Relationship Specialty Start Date End Date Enedina Mcguire APRN [address] [place] [address] PCP - General Nurse Practitioner 10/27/24 documented as of this encounter
--- OUTSIDE RECORDS SUMMARY | 2025-01-20 11:57 | XMS_ITS | Encounter Summary ---
Author Organization [facility] Address [address] [place] [address] Care Team Providers Care Highway Inspector Name Role Phone Enedina Mcguire APRN [...] alcohol) 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 [facility] Utilities Answer Date Recorded In the past 12 months has [employer], gas, oil, or water [employer] threatened to shut off services in [...] Measure Score 0 10/02/2022 [facility] Occupat ional Health - Occupational Stress [...] GED or equivalent No 07/09/2024 Preferred Language Portuguese 07/09/2024 PHQ-2 Answer Date Recorded Patient Health [...] [facility] [address] [address] Vazquez Christie PA-C [address] [place] [address] documented as of this encounter Visit Diagnoses Not on filedocumented in this encounter Additional Health Concerns Assessment Noted Time PHQ-2 Depression Total Score: 1 12/31/19 24 3:25 PM EDT documented as of this encounter Care Teams Highway Inspector Relationship Specialty Start Date End Date Enedina Mcguire APRN [address] [place] [id number] PCP - General Nurse Practitioner 10/27/24 documented as of this encounter
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
--- OUTSIDE RECORDS SUMMARY | 2025-01-20 11:58 | XMS_ITS | Encounter Summary ---
Author Organization [facility] Address [address] [place] [address] Care Team Providers Care Sterilisation Technician Name Role Phone Enedina Mcguire NP Primary Care Provider [phone] Maureen Pantoja RN Unavailable Unavail able Source [...] release of HIV test results or diagnoses. [id number] Reason for Visit * Reason Comments Results Encounter Details Date Type Department Care Team (Late st Contact Info) Description 12/29/2024 Telephone [facility] Liver Transplant at [address] [phone] Maureen Pantoja, RN Results [...] In the past 12 months has [employer], gas, oil, or water [employer] threatened to shut off services in your [...] documented as of this encounter Care Teams Sterilisation Technician Relationship Specialty Start Date End Date Enedina Mcguire NP [address] [place] [id number] PCP - General Internal Medicine 10/05/24 Maureen Pantoja, RN Txp Post Coordinator Transplant Hepatology 10/28/24 documented as of this encounter
--- OUTSIDE RECORDS SUMMARY | 2025-01-20 11:58 | XMS_ITS | Clinical Summary ---
Author Organization [facility] Address [facility] [place] [address] Care Team Providers Care Pbx Manager Name Role Phone Enedina Mcguire NP Primary Care Provider + [phone] Maureen Pantoja RN Unavailable Unavail able Source [...] therelease of HIV test results or diagnoses. [id number] Allergies Active Allergy Reactions Criticality Noted Date [...] Encounter for therapeutic drug monitoring,S/P liver transplant ([facility] [place]Hypomagn esemia,Kidney transplant recipient,Hyperten kevin, unspecified type,Gastroesophag eal reflux disease, unspecified whether esophagitis present Take 3 tablets (975 mg total) by mouth every 8 hours. 200 tablet 025 Active Additional Information Patient taking differently: 650 mgOralEvery 8 hours PRN, Pain, Reported on 01/06/2025 ergocalciferol (ERGOCALCIFEROL) 1,250 mcg (50,000 unit) capsuleIndications :Encounter for therapeutic drug monitoring,S/P liver transplant ([facility] [place]),Hypomagn esemia,Kidney transplant recipient,Hyperten kevin, unspecified type,Gastroesophag eal reflux disease, unspecified whether esophagitis present Take 1 capsule (50,000 Units total) by mouth once a week. 4 capsule 2 Active famotidine (PEPCID) 20 MG tabletIndications: Encounter for therapeutic drug monitoring,S/P liver transplant ([facility] [place]),Hypomagn esemia,Kidney transplant recipient,Hyperten kevin, unspecified type,Gastroesophag eal reflux disease, unspecified whether esophagitis present Take 1 tablet (20 mg total) by mouth 2 times a day. 60 tablet 2 Active sulfamethoxazole-t rimethoprim (BACTRIM) 400-80 mg per tabletIndications: Encounter for therapeutic drug monitoring,S/P liver transplant ([facility] [place]),Hypomagn esemia,Kidney transplant recipient,Hyperten kevin, unspecified type,Gastroesophag eal reflux disease, unspecified whether esophagitis present Take 1 tablet by mouth daily. 30 tablet 2 025 Active gabapentin (NEURONTIN) 100 MG capsuleIndications :Encounter for therapeutic drug monitoring,S/P liver transplant ([facility] [place]),Hypomagn esemia,Kidney transplant recipient,Hyperten [...] :Encounter for therapeutic drug monitoring,S/P liver transplant ([facility] [place]),Hypomagn esemia,Kidney transplant recipient,Hyperten kevin, unspecified type,Gastroesophag eal reflux disease, unspecified whether esophagitis present Take 2 capsules (500 mg total) by mouth 2 times a day. 120 capsule 5 Active valGANciclovir (VALCYTE) 450 mg tabletIndications: Encounter for therapeutic drug monitoring,S/P liver transplant ([facility] [place]),Hypomagn esemia,Kidney transplant recipient,Hyperten kevin, unspecified type,Gastroesophag eal reflux disease, unspecified whether esophagitis present Take 2 tablets (900 mg total) by mouth daily. 60 tablet Active NIFEdipine (PROCARDIA-XL) 30 MG (OSM) 24 hr tabletIndications: Encounter for therapeutic drug monitoring,S/P liver transplant ([facility] [place]),Hypomagn esemia,Kidney transplant recipient,Hyperten [...] 90 tablet Active naloxone (NARCAN) 4 mg/actuation [place] Apply 1 spray in one nostril if needed. Call 911. May repeat dose in other nostril if no response in 3 minutes. 2 each 1 10/18/19 10:25 AM EDT 01/06 Discontinued( Therapy Completed / No Longer Needed) senna-docusate (SENNOSIDES-DOCUSA TE SODIUM) 8.6-50 mg per tablet Take 1 tablet by mouth at bedtime as needed for Constipation. 30 tablet 11/03/19 10:20 AM EDT 01/06 Discontinued( Therapy [...] Discontinued( Therapy Completed / No Longer Needed) NIFEdipine (PROCARDIA-XL) 30 MG (OSM) 24 hr tabletIndications: Encounter for therapeutic drug monitoring,S/P liver transplant ([facility]),Hypomagn esemia,Kidney transplant recipient,Hyperten kevin, unspecified type,Gastroesophag eal reflux disease, unspecified whether esophagitis present Take 1 tablet (30 mg total) by mouth daily. 30 tablet 12/22 Discontinued predniSONE (DELTASONE) 5 MG tablet Take 2 tablets (10 mg total) by mouth daily. 12/22 Discontinued( Refill / Reorder) methocarbamoL (ROBAXIN) 500 MG tablet Take 2 tablets (1,000 mg total) by mouth in the morning and at bedtime. 120 tablet 01/06 Discontinued tacrolimus (PROGRAF) 1 MG capsuleIndications :Prevention of Kidney Transplant Rejection,Preventi on of Liver Transplant Rejection Take 6 capsules (6 mg total) by mouth 2 times a day. Use as directed Indications: Prevention of Kidney Transplant Rejection, Prevention of Liver Transplant Rejection 360 capsule 5 12/22 Discontinued( Refill / Reorder) predniSONE (DELTASONE) [...] with SBP, s/p CTX x5d; will cont long winder tender ppx with Cipro 500mg daily - HE: [...] Encounters Date Type Department Care Team Description 01/19/2025 Telephone [facility] Liver Transplant at [address] [place] [address] Gladis Chisholm MA Critical Lab Results 01/17/2025 Refill [facility] Liver Transplant at [address] [place] [address] [place] [address] Harvey Domínguez III, MD Encounter for therapeutic drug monitoring; S/P liver transplant ([facility]); Hypomagnesemia; Kidney transplant recipient; Hypertension, unspecified type; Gastroesophageal reflux disease, unspecified whether esophagitis present 01/16/2025 Telephone [facility] Liver Transplant at [address] [place] [address] [place] [address] Maureen Pantoja, RN Results 01/15/2025 Chart Note [facility] Transplant at [address] [facility] [address] [facility] [place] [address] Marlene Ro MA 01/14 Labs entered from [facility] 01/15/2025 Telephone [facility] at [address] [facility] [address] [facility] [place] [address] Marlene Ro MA 01/15/2025 Telephone [facility] Transplant at [address] [facility] [address] [facility] [place] [address] Kaylin Willard, NUBIA 01/14/2025 Telephone [facility] Liver Transplant at [address] [place] [address] Marlene Ro MA 01/09/2025 Chart Note [facility] Transplant at [address] [facility] [address] [facility] [place] [address] Marlene Ro MA 01/09 Labs entered from [facility] 01/09/2025 Telephone [facility] Transplant at [address] [facility] [address] [place] [address] Marisela Martinez MA Results 01/08/2025 Telephone [facility] Transplant at [address] [facility] [address] [place] [address] Maureen Pantoja, RN Results 01/06/2025 9:30 AM EDT Office Visit [facility] Liver Transplant at [address] [place] [address] [facility] [address] Leisa Juarez MD Kidney transplant recipient (Primary Dx); Hypomagnesemia; Hyperphosphatemia; Immunosuppression (CMS-HCC); Viral disease exposure; Hypertension, unspecified type 01/06/2025 8:20 AM EDT Office Visit [facility] Liver Transplant at [address] [phone] Cosmo Pacheco MD Paci, Philippe, MD S/P liver transplant ([facility]) (Primary Dx); Immunosuppression ([facility]); Kidney transplant recipient; Alcohol use disorder 01/06/2025 Social Work [facility] Liver Transplant at [address] [address] Kaylin Willard MSW 01/05/2025 Chart Note [facility] Liver Transplant at [address] [phone] Marlene Ro MA 01/05 Labs entered from [facility] 01/05/2025 Telephone [facility] Liver Transplant at [address] [address] Marisela Martinez MA Critical Lab Results 01/05/2025 Telephone [facility] Liver Transplant at [address] [address] Maureen Pantoja, ЮЛИЯ Results 12/31/2024 Chart Note [facility] Liver Transplant at [address] [address] Marlene Ro MA 12/31 Labs entered from [facility] 12/29/2024 Telephone [facility] Liver Transplant at [address] [address] Maureen Pantoja, RN Results 12/23/2024 Chart Note [facility] Liver Transplant at [address] [address] Maureen 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 12/22/2024 Telephone [facility] Liver Transplant at [address] [address] Maureen Pantoja, RN Results; Medication Dose Change 12/21/2024 Refill [facility] Liver Transplant at [address] [address] Lydia Sanchez MD Encounter for therapeutic drug monitoring; S/P liver transplant ([facility]); Hypomagnesemia; Kidney transplant recipient; Hypertension, unspecified type; Gastroesophageal reflux disease, unspecified whether esophagitis present 12/18/2024 2:00 PM EDT Office Visit [facility] Psychiatry Transplant at [address] [address] Lizeth Warren PsyD Alcohol use disorder (Primary Dx); PTSD (post-traumatic stress disorder) 12/18/2024 Refill [facility] Liver Transplant at [address] [address] Maureen Pantoja, ЮЛИЯ Encounter for therapeutic drug monitoring; S/P liver transplant ([facility] [place]); Hypomagnesemia; Kidney transplant recipient; Hypertension, unspecified type; Gastroesophageal reflux disease, unspecified whether esophagitis present 12/17/2024 Chart Note [facility] Liver Transplant at [address] [place] [address] Marlene Ro MA 12/16 Labs entered [facility] 12/12/2024 Telephone [facility] Liver Transplant at [address] [place] [address] Maureen Pantoja, RN Results 12/09/2024 11:45 AM EDT Office Visit [facility] Psychiatry Transplant at [address] [place] [address] Rebekah Linares [facility] Alcohol use disorder (Primary Dx) 12/09/2024 10:20 AM EDT Office Visit [facility] Liver Transplant at [address] [address] Harvey Domínguez III, MD Encounter for therapeutic drug monitoring (Primary Dx); S/P liver transplant ([facility]); Hypomagnesemia; Kidney transplant recipient; Hypertension, unspecified type; Gastroesophageal reflux disease, unspecified whether esophagitis present 12/09/2024 9:50 AM EDT Office Visit [facility] Liver Transplant at [address] [address] Leisa Juarez MD Kidney transplant recipient (Primary Dx); Immunosuppressive management encounter following liver transplant ([facility]); Hypomagnesemia; S/P liver transplant ([facility]); Hypertension, unspecified type; Hyperparathyroidism ([facility]) 12/09/2024 Social Work [facility] Liver Transplant at [address] [address] Kaylin Willard MSW 12/09/2024 Orders Only [facility] Liver Transplant at [address] [address] Maureen Pantoja, ЮЛИЯ 12/09/2024 Orders Only [facility] Liver Transplant at [address] [address] Maureen Pantoja, RN Kidney transplant recipient (Primary Dx); Liver transplant recipient ([facility]); Viral disease exposure; Immunosuppression ([facility]) 12/09/2024 Telephone [facility] Liver Transplant at [address] [place] [address] Mitzy Rojas MA 12/09/2024 Chart Note [facility] Transplant at [address] [place] [address] Marlene Ro MA 12/04/2024 Telephone [facility] Liver Transplant at [address] [place] [address] Maureen Pantoja, RN Results 12/04/2024 Chart Note [facility] Transplant at [address] [place] [address] Marlene Ro MA FK Pending-12/0412/04/2024 Telephone [facility] Liver Transplant at [address] [place] [address] Kaylin Willard, NUBIA 12/04/2024 Telephone [facility] Liver Transplant at [address] [place] [address] Marlene Ro MA 12/03/2024 Chart Note [facility] Transplant at [address] [place] [address] Marlene Ro MA 12/02/2024 Telephone [facility] Transplant at [address] [place] [address] Mitzy Rojas MA 12/01/2024 Telephone [facility] Transplant at [address] [place] [address] Gladis Chisholm MA 11/27/2024 Telephone [facility] Transplant at [address] [place] [address] Maureen Pantoja, RN Results 11/27/2024 Chart Note [facility] Transplant at [address] [place] [address] Marlene Ro MA FK Pending 11/27 Labs 11/26/2024 Telephone [facility] Liver Transplant at [address] [place] [address] [place] [address] Maureen Pantoja, RN Results 11/25/2024 10:50 AM EDT Office Visit [facility] Liver Transplant at [address] [place] [address] Leisa Juarez MD Kaur, Taranpreet NADIYA (acute kidney injury) ([facility]) (Primary Dx); Kidney replaced by transplant; Metabolic acidosis; Hypervolemia associated with renal insufficiency 11/25/2024 10:20 AM EDT Office Visit [facility] Liver Transplant at [address] [place] [address] Lydia Sanchez MD Encounter for therapeutic drug monitoring (Primary Dx); S/P liver transplant (CMS-HCC); Hypomagnesemia; Kidney transplant recipient; Hypertension, unspecified type; Gastroesophageal reflux disease, unspecified whether esophagitis present; Abdominal pain, unspecified abdominal location 11/25/2024 9:00 AM EDT Procedure visit [facility] at [facility] Office [address] [facility] [address] [place] [address] Julieta Rogers PA Retained ureteral stent of transplanted kidney ([facility]) (Primary Dx) 11/25/2024 Social Work [facility] Liver Transplant at [address] [place] [address] [place] [address] Kaylin Willard MSW 11/24/2024 Orders Only [facility] Liver Transplant at [address] [place] [address] [place] [address] Maureen Pantoja, ЮЛИЯ 11/21/2024 Orders Only [facility] Office [address] [facility] [address] [place] [address] Vasile Gordillo MA 11/21/2024 Telephone [facility] Liver Transplant at [address] [place] [address] Maureen Pantoja, RN Results 11/21/2024 Chart Note [facility] Transplant at [address] [place] [address] Marlene Ro MA FK: 11/18 & 11/20 Pending 11/20/2024 Refill [facility] Liver Transplant at [address] [place] [address] Maureen Pantoja, ЮЛИЯ 11/20/2024 Refill [facility] Liver Transplant at [address] [place] [address] Maureen Pantoja, ЮЛИЯ 11/20/2024 Orders Only [facility] Liver Transplant at [address] [place] [address] Maureen Pantoja, RN S/P liver transplant ([facility]) (Primary Dx); Immunosuppression (CMS-HCC); Viral disease exposure; Alcohol use 11/18/2024 Telephone [facility] Liver Transplant at [address] [place] [address] Maureen Pantoja, RN Results 11/18/2024 Chart Note [facility] Liver Transplant at [address] [place] [address] Marlene Ro MA 11/11/2024 10:30 AM EDT Office Visit [facility] Liver Transplant at [address] [address] Unknown, Attending Provider Jessica Colon Kidney replaced by transplant (Primary Dx); Hypervolemia associated with renal insufficiency 11/11/2024 10:00 AM EDT Office Visit [facility] Liver Transplant at [address] [address] Cosmo Pacheco MD Quillin, Ralph Cutler III, MD Encounter for therapeutic drug monitoring (Primary Dx); Abdominal pain, unspecified abdominal location 11/11/2024 9:30 AM EDT Office Visit [facility] Psychiatry Transplant at [address] [phone] Lizeth Warren PsyD PTSD (post-traumatic stress disorder) (Primary Dx) 11/11/2024 8:50 AM EDT [facility] [address] [place] [address] Harvey Domínguez III, MD Liver replaced by transplant ([facility]); Immunosuppressive management encounter following liver transplant ([facility]); Kidney transplant recipient 11/11/2024 Telephone [facility] Liver Transplant at [address] [address] Maureen Pantoja, ЮЛИЯ Results 11/10/2024 Orders Only [facility] Liver Transplant at [address] [address] Maureen Pantoja, ЮЛИЯ Liver transplant recipient ([facility]) (Primary Dx); Kidney transplant recipient; Immunosuppressive management encounter following liver transplant ([facility]) 11/10/2024 Orders Only [facility] Liver Transplant at [address] [address] Maureen Pantoja, RN 11/09/2024 Telephone [facility] [address] [place], [place] [id number] Unknown, Attending Provider After Hours Call (Passing blood through stool states started this morning has had 3 bloody bowel movements kidney and liver txp done 2 weeks ago) 11/07/2024 Telephone [facility] Liver Transplant at [address] [address] Marlene Ro MA 11/07/2024 Telephone [facility] Liver Transplant at [address] [address] Maureen Pantoja, ЮЛИЯ Results 11/07/2024 Chart Note [facility] Liver Transplant at [address] [address] Marlene Ro MA FK Pending 11/04/2024 10:10 AM EDT Office Visit [facility] Liver Transplant at [address] [address] Leisa Juarez MD Kidney transplant recipient (Primary Dx); Diarrhea of presumed infectious origin; Hypomagnesemia; Hypervolemia, unspecified hypervolemia type; Liver transplant recipient (CMS-HCC); Other hypervolemia; Hyperparathyroidism ([facility]); Nausea and vomiting, unspecified vomiting type 11/04/2024 8:40 AM EDT Office Visit [facility] Liver Transplant at [address] [address] Cosmo Pacheco MD Liver transplant recipient (CMS-HCC) (Primary Dx); Alcoholic cirrhosis of liver with ascites (CMS-HCC); Kidney transplant recipient; Acute kidney injury superimposed on CKD (CMS-HCC); CKD (chronic kidney disease) stage 4, GFR 15-29 ml/min (CMS-HCC); Immunosuppressive management encounter following liver transplant (CMS-HCC); Abdominal pain, unspecified abdominal location 11/04/2024 Telephone [facility] Transplant at [address] [place] [address] Maureen Pantoja, ЮЛИЯ Results 11/04/2024 Results Follow-Up [facility] Transplant at [address] [place] [address] Maureen Pantoja, ЮЛИЯ Tacrolimus level, Hepatic Function Panel, Renal Function Panel w/EGFR, Additional followed-up results: 3 11/04/2024 Social Work [facility] Transplant at [address] [address] Kaylin Willard MSW 11/04/2024 Nutrition [facility] Transplant at [address] [address] Ben Weiss, DMITRY 11/03/2024 Chart Note [facility] Liver Transplant at [address] [address] Hillary Fernandes, TaniD Liver Transplant Pharmacy Discharge Note 11/03/2024 Telephone [facility] Liver Transplant at [address] [address] Marisela Martinez MA 10/31/2024 Orders Only [facility] Liver Transplant at [address] [address] Harvey Domínguez III, MD Liver replaced by transplant ([facility]) (Primary Dx); Immunosuppressive management encounter following liver transplant (CMS-HCC) 10/29/2024 Travel 10/29/2024 Education Chart Note [facility] Transplant at [address] [place] [address] Crista Power RN 10/27/2024 2:34 AM EDT Anesthesia Event [facility] [address] [place] [address] Rocky Manning MD Kopel, Lior, MD 10/27/2024 2:00 AM EDT - 10/27/2024 6:54 AM EDT Surgery [facility] [address] [place] [address] Harvey Domínguez III, MD Donor Kidney Transplant , Back Bench Preparation Donor Kidney, Baseline Kidney transplant biopsy , Insertion of Indwelling Stent , Removal of Perihepatic packing 10/27/2024 Pharmacy Services [facility] [address] [place] [address] Opal Cox, Lissett 10/27/2024 Chart Note [facility] Kidney Transplant at [address] [address] Karen Rosen, RN I have verified that the donor serologies entered in [employer] match the donor 10/27/2024 Chart Note [facility] Liver Transplant at [address] [phone] Crista Power, RN I introduced myself as inpatient liver/kidney clinical training coordinator, 10/27/2024 Orders Only [facility] [address] [place], [place] [address] [address] Abdulkadir Gaspar MD 10/26/2024 Chart Note [facility] Kidney Transplant at [address] [place] [address] Geri Vasquez RN 10/26/2024 Chart Note [facility] Liver Transplant at [address] [place] [address] Geri Vasquez RN 10/25/2024 10:54 PM EDT Anesthesia Event [facility] [place] [address] Eber Quinones MD Edwards, Anna, MD 10/25/2024 10:30 PM EDT - 10/26/2024 6:12 AM EDT Surgery [facility] [address] [place] [address] Harvey Domínguez III, MD LIVER TRANSPLANT 10/25/2024 8:46 PM EDT - 11/02/2024 6:23 PM EDT Hospital Encounter [facility] [address] [place] [address] Harvey Domínguez III, MD Haugen, Christine, MD Acute kidney injury superimposed on CKD (CMS-HCC) (Primary Dx); Prophylactic antibiotic; Prolonged QT interval; Immunosuppression ([facility]); Abdominal pain, unspecified abdominal location Discharge Disposition: Home or Self Care WITHOUT Home Care Services 10/25/2024 Travel 10/25/2024 Telephone [facility] Liver Transplant at [address] [address] Krissy Crowell, ЮЛИЯ DDLT patient instructions 10/25/2024 Telephone [facility] Liver Transplant at [address] [address] Krissy Crowell, ЮЛИЯ 10/24/2024 Telephone [facility]pertension [facility] at [address] [place] [address] Joann Davies MA Appointment 10/22/2024 Telephone [facility] Liver Transplant at [address] [place] [address] Mary Butler RN 10/22/2024 Chart Note [facility] Kidney Transplant at [address] [place] [address] Gladis Rainey, RN Received most recent eGFR from today with result of 21. Pt meets CKD 10/22/2024 Chart Note [facility] Liver Transplant at [address] [place] [address] Faraz Carballo, ЮЛИЯ 2nd ABO verified for [facility] listing at the request of JOSE G Butler. 10/22/2024 Telephone [facility] Psychiatry Transplant at [address] [place] [address] Lizeth Warren PsyD 10/22/2024 Chart Note [facility] [address] [place] [phone] Aaron Gonzalez MD Candidacy for a simultaneous liver-kidney transplant 10/22/2024 Status Update [facility] Kidney Transplant at [address] [place] [address] Aaron Gonzalez MD 10/22/2024 Chart Note [facility] Liver Transplant at [address] [place] [address] Mary Butler, ЮЛИЯ UNOS VERIFICATION CHECK FORM 10/22/2024 Orders Only [facility] Pancreas Transplant at Outpatient [address] [phone] Abdulkadir Gaspar MD 10/22/2024 Chart Note [facility] Liver Transplant at [address] [place] [address] Mary Butler RN 10/21/2024 Telephone [facility] at [facility] [address] [facility] [address] [place] [phone] Gerri Peterson MD Medication Management (Requesting RX for New Medication ) 10/21/2024 Refill [facility] [address] [facility] [address] [place] [phone] Gerri Peterson MD 10/20/2024 9:10 AM EDT - 10/20/2024 11:59 PM EDT Hospital Encounter [facility] [address] [place] [address] System, Provider Not In Discharge Disposition: Home or Self Care WITHOUT Home Care Services 10/20/2024 9:10 AM EDT - 10/20/2024 11:59 PM EDT Hospital Encounter [facility] [address] [place] [address] System, Provider Not In Discharge Disposition: Home or Self Care WITHOUT Home Care Services 10/20/2024 9:10 AM EDT - 10/20/2024 11:59 PM EDT Hospital Encounter [facility] [address] [place] [address] System, Provider Not In Discharge Disposition: Home or Self Care WITHOUT Home Care Services 10/20/2024 9:10 AM EDT - 10/20/2024 11:59 PM EDT Hospital Encounter [facility] [address] [place] [address] System, Provider Not In Discharge Disposition: Home or Self Care WITHOUT Home Care Services 10/20/2024 9:10 AM EDT - 10/20/2024 11:59 PM EDT Hospital Encounter [facility] [address] [place] [address] System, Provider Not In Discharge Disposition: Home or Self Care WITHOUT Home Care Services 10/20/2024 9:10 AM EDT - 10/20/2024 11:59 PM EDT Hospital Encounter [facility] [address] [place] [address] System, Provider Not In Discharge Disposition: Home or Self Care WITHOUT Home Care Services 10/20/2024 9:10 AM EDT - 10/20/2024 11:59 PM EDT Hospital Encounter [facility] [address] [place] [phone] System, Provider Not In Discharge Disposition: Home or Self Care WITHOUT Home Care Services 10/20/2024 Orders Only [facility] at [facility] [place] [address] [place] [phone] Abdulkadir Gaspar MD 10/20/2024 Telephone [facility] [address] [facility] [address] [place] [phone] Gerri Peterson MD Prescription Issue (RX Clarification Request ) 10/20/2024 Refill [facility] [address] [facility] [address] [place] [phone] Gerri Peterson MD 10/20/2024 Telephone [facility] Transplant at [facility] [address] [facility] [address] [place] [phone] Mary Butler RN from Last 3 Months Social History Tobacco [...] Recorded In the past 12 months has [employer], [employer], oil, or water [email or web address] threatened to shut off services in your [...] the money to buy more. Never true 06/18/20 25 Within the past 12 months, t [...] 12/10/2024, 09/29/2024, Additional history exists Renal Function/GFR 01/14/2026 01/14/2025, 0 01/09/2025, 01/05/2025, Additional history exists Immunization: DTaP/Tdap/Td ( 3 - Td or Tdap) 06/03/2028 06/03/2018, 09/13/2010 Hepatitis C Screening (MyChart) Completed 10/25/2024, 10/07/2024, 10/06/2024, Additional history exists HIV Screening Completed 11/25/2024, 10/12, 10/07/2024 Procedures Procedure Name Priority Date/Time Associated Diagnosis Comments TACROLIMUS LEVEL Routine 01/14/2025 10:53 AM EDT MAGNESIUM Routine 01/14/2025 10:53 AM EDT RENAL FUNCTION PANEL W/O EGFR Routine 01/14/2025 10:53 AM EDT CREATININE, URINE, RANDOM Routine 2024 10:53 AM EDT URINALYSIS W/RFL TO MICROSCOPIC Routine 01/14/2025 10:53 AM EDT CBC AND DIFFERENTIAL Routine 01/14/2025 10:53 AM EDT URINE PROTEIN, TOTAL, RANDOM (W/O CREATININE) Routine 01/14/2025 10:53 AM EDT HEPATIC FUNCTION PANEL Routine 10:53 AM EDT TACROLIMUS LEVEL Routine 01/09/2025 12:23 PM EDT MAGNESIUM Routine 01/09/2025 12:23 PM EDT CBC [...] 11/25/2024 8:42 AM EDT S/P liver transplant ([facility]-H[facility]) Immunosuppression ([facility]-H[facility]) Alcohol use HIV-1 RNA, QUANTITATIVE, PCR Routine 11/25/2024 8:42 AM EDT S/P liver transplant ([facility]-HCC) Immunosuppression ([facility]-H[facility]) Viral disease exposure HEPATITIS C RNA, QUANTITATIVE PCR Routine 11/25/2024 8:42 AM EDT S/P liver transplant ([facility]-HCC) Immunosuppression ([facility]) Viral disease exposure HEPATITIS B VIRUS (HBV), REAL-TIME PCR, QUANT Routine 11/25/2024 8:42 AM EDT S/P liver transplant ([facility]-H[facility]) Immunosuppression ([facility]) Viral disease exposure MAGNESIUM Routine [...] Routine 10/31/2024 10:19 AM EDT US DUPLEX [id number]-ZHYAJTI COMPLETE Routine 10/31/2024 10:19 AM EDT ECG [...] STAT 10/28/2024 4:23 PM EDT US DUPLEX NQE-[id number] COMPLETE STAT 10/28/2024 4:23 PM EDT TRANSFUSE [...] STAT 10/27/2024 9:51 AM EDT US DUPLEX [id number]-[id number] COMPLETE STAT 10/27/2024 9:51 AM EDT US [...] 6:16 AM EDT PREPARE CRYOPRECIPITATE Routine 10/28/19 25 6:16 AM EDT PREPARE FRESH FROZEN PLASMA [...] EDT Acute kidney injury superimposed on CKD ([facility]) ND RENAL ALTRNSPLJ IMPLTJ GRF W/COGNOS REPORT DEVELOPER NEPHRECTOMY 10/27/2024 2:32 AM EDT Acute kidney [...] COMPARISON IMAGES Routine 10/20/2024 9:10 AM EDT TSH Routine 10/07/2024 6:37 PM EDT from Last 3 Months or Most Recently Relevant to Health Maintenance Results * Urine Protein, Tot, Random (w/o Creat) (01/14/2025 10:53 AM EDT) Only the most recent of6 resultswithin the time period is included. Total Protein, Ur 13.0 Urine Narrative Resulting Agency Comment [facility] us Historical Provider URINE ORDERABLES Final Re sult * Hepatic Function Panel (01/14/2025 10:53 AM EDT) Only the most recent of32 resultswithin the time period is included. Bilirubin, Direct 0.2 Bilirubin, Indirect 0.5 Alkaline Phosphatase 49 ALT 15 AST 24 Total Bilirubin 0.7 Total Protein 6.8 Plasma Narrative Resulting Agency Comment [facility] Result [facility] LAB BLOOD ORDERABLES Denisse l Result * Tacrolimus level (01/14/2025 10:53 AM EDT) Only the most recent of22 resultswithin the time period is included. Tacrolimus Lvl 9.6 6 - 15 ng/mL Whole Blood Result [facility] LAB BLOOD ORDERABLES Denisse l Result * Creatinine, urine, random (01/14/2025 10:53 AM EDT) Only the most recent of6 resultswithin the time period is included. Creatinine, Urine 90 Urine Narrative Resulting Agency Comment [facility] Result [facility] URINE ORDERABLES Final Re sult * Urinalysis w/Rfl to Microscopic (01/14/2025 10:53 AM EDT) Only the most recent of10 resultswithin the time period is included. Glucose, UA Negative Negative Ketones, UA Negative Negative Blood, UA Negative Negative Bilirubin, UA Negative Negative Urobilinogen, UA Normal Normal Protein, UA Negative Negative Nitrite, UA Negative Negative pH, UA 5.5 4.5 - 8.0 Specific [place], UA 1.020 1.005 - 1.030 Clarity, UA Clear Clear Color, UA Yellow Light Yellow, Yellow Urine Narrative Resulting Agency Comment [facility] Result [facility] URINE ORDERABLES Final Re sult * (ABNORMAL) CBC and differential (01/14/2025 10:53 AM EDT) Only the most recent of15 resultswithin the time period is included. Pathologist [facility] Hemoglobin 12.2(A) 13.5 - 17.5 g/dL Hematocrit 34.6(A) 41 - 53 % RDW 14.2 11.5 - 14.5 % Lymphocytes Absolute 1.2 / L Monocytes Absolute 0.2 / L Eosinophils Absolute 0.0 / L Basophils Absolute 0.0 / L Neutrophils Relative 29.8(A) 46 - 78 % Lymphocytes Relative 57.2(A) 18 - 52 % Monocytes Relative 7.5 3 - 10 % Eosinophils Relative 2.0 0 - 6 % Basophils Relative 0.0 0 - 3 % Neutrophils Absolute 0.6 / L MCH 32.6 26.0 - 34.0 pg MCHC 35.3 30 - 37 g/dL MCV 92.5 82.0 - 108.0 fL Platelets 127 K/ L RBC 3.74(A) 4.50 - 5.90 10^6/ L WBC 2.0 10^3/mL Blood Narrative Resulting Agency Comment [facility] Historical Provider MD LAB BLOOD ORDERABLES Denisse l Result * (ABNORMAL) Magnesium (01/14/2025 10:53 AM EDT) Only the most recent of25 resultswithin the time period is included. [facility] Magnesium 1.2(A) 1.6 - 2.4 mg/dL Plasma Narrative Resulting Agency Comment [facility] Historical Provider MD LAB BLOOD ORDERABLES Denisse l Result * Renal Function Panel w/o EGFR (01/14/2025 10:53 AM EDT) Only the most recent of16 resultswithin the time period is included. Pathologist [facility] Glucose 94 BUN 19 CO2 21 13 - 22 mmol/L Creatinine 1.00 Potassium 4.4 Sodium 140 Chloride 109 Phosphorus 4.8 2.5 - 4.9 mg/dL Calcium 9.5 EGFR 82 mg/dL Albumin 4.8 3.5 - 5.0 g/dL Blood Narrative Resulting Agency Comment [facility] Historical Provider LAB BLOOD ORDERABLES Denisse l Result * Urine culture (01/06/2025 12:23 PM EDT) Only the most recent of5 resultswithin the time period is included. Pathologist [facility] Urine Culture, Comprehensive no growth URINE SPECIMEN / Unknown [facility] Provider MICROBIOLOGY - GENERAL OR DERABLES Final Result * BK Virus Quantitative by PCR, Blood (01/05/2025 9:27 AM EDT) Only the most recent of2 resultswithin the time period is included. Pathologist [facility] BK Virus Quant PCR PL Negative Plasma Result [facility] Provider LAB BLOOD ORDERABLES Denisse l Result * Protime-INR (12/23/2024 9:53 AM EDT) Only the most recent of15 resultswithin the time period is included. Pathologist [facility] INR 0.94 0.9 - 1.1 Protime 10.5 Plasma Result [facility] Harvey Domínguez III, MD LAB BLOOD ORDERABLE S Final Result * Phosphatidylethanol Confirmation, B (11/25/2024 8:42 AM EDT) Pathologist [facility] PETH 16:0/18.1 (POPETH) 14 Cutoff: 10 ng/mL [...] Cutoff: 10 ng/mL 11/28/2024 8:24 AM EDT [facility] Comment: PEth 16:0/18:2 (PLPEth) Reference ranges are not well established PEth Interpretation Positive. 11/28 8:24 AM EDT [facility] Comment: ADDITIONAL INFORMATION This report is intended for use in clinical monitoring and management of patients. It is not intended for use in employment-related testing. This test was developed and its performance characteristics determined by [facility] in a manner consistent with CLIA requirements. This test has not been cleared or approved by the U.S. Food and Drug Administration. Test Performed by: [facility] [place] [address] Immigration Case Worker: Kathy Ortiz Ph.D.; CLIA# [id number] Whole Blood 11/25/2024 8:42 AM EDT 11/28/2024 8:24 AM EDT Narrative [facility] - 11/28/2024 8:24 AM EDT One time lab order to be collected with next set of standing liver transplant labs. Please fax all results to [phone]. Call critical results to [phone]. us Harvey Domínguez III, MD LAB BLOOD ORDERABLE S Final Result [facility] [address] [facility] [place] [facility]. [address] * Hepatitis B Virus (HBV), PCR, Quant (11/25/2024 8:42 AM EDT) Hep B Viral DNA IU/ML Not Detected IU/mL 11/28/2024 10:09 AM EDT [facility] Comment:Test methodology for HBV DNA quantification is an FDA-approved nucleic acid amplification assay. The lower limit of quantitation (LLOQ) is 10 IU/mL. The linear range of the assay is 10-1,000,000,000 IU/mL. The limit of detection (LoD) for plasma is 2.7 IU/mL. The reference range is Not Detected. log 10 HBV as IU/mL See Note log 10 IU/mL 11/28/2024 10:09 AM EDT [facility] Comment:HBV DNA not detected . Plasma 11/25/2024 8:42 AM EDT 11/25/2024 10:59 AM EDT [facility] - 11/28/2024 10:09 AM EDT One time lab order to be collected with next set of standing liver transplant labs. UNOS requirement. Please fax all results to [phone]. Call critical results to [phone]. us Harvey Domínguez III, MD LAB BLOOD ORDERABLE S Final Result [facility] [address] * HIV-1 RNA, Quantitative, PCR (11/25/2024 8:42 AM EDT) HIV 1 Copies Not Detected copies/mL 11/26/2024 10:57 AM EDT [facility] Comment:Test methodology for HIV-1 RNA quantification is an FDA-approved nucleic acid amplification assay. The Lower Limit of Quantitation (LLoQ) is 20 copies/mL. The linear range is 20- to 10,000,000 copies/mL. The Limit of Detection (LoD) is 13.2 copies/mL. The reference range is Not Detected. HIV [id number] See Note [id number] /mL 11/26/2024 10:57 AM EDT [facility] Comment:HIV-1 RNA not detect ed. Plasma 11/25/2024 8:42 AM EDT 11/25/2024 10:59 AM EDT [facility] - 11/26/2024 10:57 AM EDT One time lab order to be collected with next set of standing liver transplant labs. UNOS requirement. Please fax all results to [phone]. Call critical results to [phone]. Harvey Domínguez III, MD LAB BLOOD ORDERABLE S Final Result Performing Organization Address [facility] Co de Phone Number [facility] [address] * Hepatitis C RNA, Quantitative PCR (11/25/2024 8:42 AM EDT) Pathologist [facility] Units Not Detected IU/mL 11/27/2024 11:35 AM EDT [facility] Comment:Test methodology for HCV RNA quantification is an FDA-approved nucleic acid amplification assay. The Lower Limit of Quantitation (LLOQ) is 15 IU/mL. The linear range of the assay is 15-100,000,000 IU/mL. The Limit of Detection (LoD) is 12.0 IU/mL for EDTA plasma. The reference range is Not Detected. IU log10 See Note log 10 IU/mL 11/27/2024 11:35 AM EDT [facility] Comment:HCV RNA not detected . Plasma 11/25/2024 8:42 AM EDT 11/25/2024 10:59 AM EDT Narrative [facility] - 11/27/2024 11:35 AM EDT One time lab order to be collected with next set of standing liver transplant labs. UNOS requirement. Please fax all results to [phone]. Call critical results to [phone]. Harvey Domínguez III, MD LAB BLOOD ORDERABLE S Final Result Performing Organization Address [facility] Co de Phone Number [facility] [address] * Differential (11/25/2024 8:42 AM EDT) Only the most recent of5 resultswithin the time period is included. Neutrophils Relative 73.2 40.0 - 80.0 % 11/25/2024 10:25 AM EDT [facility] Lymphocytes Relative 19.2 15.0 - 45.0 % 11/25/2024 10:25 AM EDT [facility] Monocytes Relative 6.3 0.0 - 12.0 % 11/25/2024 10:25 AM EDT [facility] Eosinophils Relative 0.4 0.0 - 8.0 % 11/25/2024 10:25 AM EDT [facility] Basophils Relative 0.9 0.0 - 1.0 % 11/25/2024 10:25 AM EDT [facility] nRBC 0 0 - 0 /100 WBC 11/25/2024 10:25 AM EDT [facility] Neutrophils Absolute 5,929 1,520 - 8,640 /uL 11/25/2024 10:25 AM EDT [facility] Lymphocytes Absolute 1,555 570 - 4,860 /uL 11/25/2024 10:25 AM EDT [facility] Monocytes Absolute 510 0 - 1,296 /uL 11/25/2024 10:25 AM EDT [facility] Eosinophils Absolute 32 0 - 864 /uL 11/25/2024 10:25 AM EDT [facility] Basophils Absolute 73 0 - 108 /uL 11/25/2024 10:25 AM EDT [facility] Whole Blood 11/25/2024 8:42 AM EDT 11/25/2024 9:44 AM EDT Narrative [facility] - 11/25/2024 10:25 AM EDT Standing orders to be drawn: Every Sunday and before 9am and prior to patient taking morning medications. Liver Transplant Fax results to [phone] Call Critical results to [phone] us Harvey Domínguez III, MD LAB BLOOD ORDERABLE S Final Result [facility] [address] * (ABNORMAL) CBC (11/25/2024 8:42 AM EDT) Only the most recent of21 resultswithin the time period is included. WBC 8.1 3.8 - 10.8 10E3/uL 11/25/2024 10:25 AM EDT [facility] RBC 3.71(L) 4.20 - 5.80 10E6/uL 11/25/2024 10:25 AM EDT [facility] Hemoglobin 11.7(L) 13.2 - 17.1 g/dL 11/25/2024 10:25 AM EDT [facility] Hematocrit 33.8(L) 38.5 - 50.0 % 11/25/2024 10:25 AM EDT [facility] MCV 91.1 80.0 - 100.0 fL 11/25/2024 10:25 AM EDT [facility] MCH 31.5 27.0 - 33.0 pg 11/25/2024 10:25 AM EDT [facility] MCHC 34.6 32.0 - 36.0 g/dL 11/25/2024 10:25 AM EDT [facility] RDW 20.0(H) 11.0 - 15.0 % 11/25/2024 10:25 AM EDT [facility] Platelets 193 140 - 400 10E3/uL 11/25/2024 10:25 AM EDT [facility] Comment:Slide Reviewed for P LT Clumps. None Seen. MPV 6.9(L) 7.5 - 11.5 fL 11/25/2024 10:25 AM EDT [facility] Whole Blood 11/25/2024 8:42 AM EDT 11/25/2024 9:44 AM EDT us Gerri Peterson MD LAB BLOOD ORDERABLES Final Resu lt [facility] [address] [place] [address], [facility] * (ABNORMAL) Comprehensive metabolic panel (11/25/2024 8:42 AM EDT) Sodium 141 133 - 146 mmol/L 11/25/2024 10:20 AM EDT [facility] Potassium 4.3 3.5 - 5.3 mmol/L 11/25/2024 10:20 AM EDT [facility] Chloride 106 98 - 110 mmol/L 11/25/2024 10:20 AM EDT [facility] CO2 23 21 - 33 mmol/L 11/25/2024 10:20 AM EDT [facility] Anion Gap 12 3 - 16 mmol/L 11/25/2024 10:20 AM EDT [facility] BUN 43(H) 7 - 25 mg/dL 11/25/2024 10:20 AM EDT [facility] Creatinine 1.59(H) 0.60 - 1.30 mg/dL 11/25/2024 10:20 AM EDT [facility] Glucose 93 70 - 100 mg/dL 11/25/2024 10:20 AM EDT [facility] Calcium 10.0 8.6 - 10.3 mg/dL 11/25/2024 10:20 AM EDT [facility] Total Bilirubin 0.7 0.0 - 1.5 mg/dL 11/25/2024 10:20 AM EDT [facility] AST 9(L) 13 - 39 U/L 11/25/2024 10:20 AM EDT [facility] ALT 22 7 - 52 U/L 11/25/2024 10:20 AM EDT [facility] Alkaline Phosphatase 198(H) 36 - 125 U/L 11/25/2024 10:20 AM T [facility] Total Protein 7.0 6.4 - 8.9 g/dL 11/25/2024 10:20 AM [facility] Albumin 4.5 3.5 - 5.7 g/dL 11/25/2024 10:20 AM T [facility] Osmolality, Calculated 303 278 - 305 mOsm/kg 11/25/2024 10:20 AM [facility] EGFR 56 11/25/2024 10:20 AM [facility] Comment:As of 2021, the estimated GFR [...] MD LAB BLOOD ORDERABLES Final Resu lt [facility] [address] [facility] [place] [facility]. [address] * (ABNORMAL) Post Kidney Transplant Urine Culture (11/11/2024 9:13 AM EDT) Only the most recent of3 resultswithin the time period is included. Culture Result Enterococcus faecium(A) [facility] Comment: <1,000 cfu/mL Identified by MALDI-TOF MS No Further Workup Midstream Urine URINE SPECIMEN / Unknown 11/11/2024 9:13 AM EDT 11/11/2024 10:17 AM EDT Caron Santos CNP MICROBIOLOGY - GENERAL OR DERABLES Final Result Performing Organization Address [facility]/ZIP Co de Phone Number [facility] [address] [facility]. [address] * (ABNORMAL) Renal Function Panel w/EGFR (11/11/2024 9:13 AM EDT) Only the most recent of18 resultswithin the time period is included. Sodium 141 133 - 146 mmol/L 11/11/2024 10:51 AM EDT [facility] Potassium 4.6 3.5 - 5.3 mmol/L 11/11/2024 10:51 AM EDT [facility] Chloride 108 98 - 110 mmol/L 11/11/2024 10:51 AM EDT [facility] CO2 24 21 - 33 mmol/L 11/11/2024 10:51 AM EDT [facility] Anion Gap 9 3 - 16 mmol/L 11/11/2024 10:51 AM EDT [facility] BUN 27(H) 7 - 25 mg/dL 11/11/2024 10:51 AM EDT [facility] Creatinine 1.14 0.60 - 1.30 mg/dL 11/11/2024 10:51 AM EDT [facility] Glucose 97 70 - 100 mg/dL 11/11/2024 10:51 AM EDT [facility] Calcium 8.6 8.6 - 10.3 mg/dL 11/11/2024 10:51 AM EDT [facility] Phosphorus 4.4 2.1 - 4.7 mg/dL 11/11/2024 10:51 AM EDT [facility] Albumin 3.8 3.5 - 5.7 g/dL 11/11/2024 10:51 AM EDT [facility] Osmolality, Calculated 297 278 - 305 mOsm/kg 11/11/2024 10:51 AM EDT [facility] EGFR 83 11/11/2024 10:51 AM EDT [facility] Comment:As of 2021, the [...] AM EDT 11/11/2024 10:19 AM EDT Narrative [facility] - 11/11/2024 10:51 AM EDT Standing orders to be drawn: Every Sunday and before 9am and prior to patient taking morning medications. Liver Transplant Fax results to [phone] Call Critical results to [phone] DO NOT REPLACE RENAL PANEL or HEPATIC FUNCTION PANEL w/ CMP, BMP or HEPATIC PROFILE us Harvey Domínguez III, MD LAB BLOOD ORDERABLE S Final Result [facility] [address] * Protein / creatinine ratio, urine (11/11/2024 9:13 AM EDT) Only the most recent of2 resultswithin the time period is included. Creatinine, Urine 71.40 mg/dL 11/11/2024 10:38 AM EDT [facility] Comment:Reference range not established for this test. Total Protein, Ur 28 mg/dL 11/11/2024 10:38 AM EDT [facility] Comment:Reference range not established for this test. Prot/Creat Ratio, Ur 0.39 ratio 11/11/2024 10:38 AM EDT [facility] Urine 11/11/2024 9:13 AM EDT 11/11/2024 10:12 AM EDT us Caron Santos TERRITORY ACCOUNT MANAGER URINE ORDERABLES Final Re sult Performing Organization Address City/State/[facility] Co de Phone Number [facility] [address] * EKG - scan (11/03/2024 9:07 [...] - 100 mg/dL 11/02/2024 5:45 PM EDT [facility] Blood 11/02/2024 5:44 PM EDT 11/02/2024 5:45 PM EDT us Harvey Domínguez III, MD POINT OF CARE TEST ORDERABLES Final Result [facility] [address] [place] [address], [facility] * X-ray Portable Abdomen AP view [...] Adrenal gland: No focal nodule seen. Kidneys: Samish kidneys noted with nonobstructing calcifications on the right. Findings of postsurgical changes in the left [place] kidney. Mild right hydronephrosis without an obstructive [...] Adrenal gland: No focal nodule seen. Kidneys: Samish kidneys noted with nonobstructing calcifications on theright. Findings of postsurgical changes in the left [place] kidney. Mildright hydronephrosis without an obstructive course [...] QT: 400 ms QTc: 456 ms P Divide: 49 degrees R Divide: 3 degrees T Divide: 14 degrees Diagnosis Line: NORMAL SINUS RHYTHM ^ NORMAL ECG ^ ^ Confirmed by MD REID JAMES ([id number]) on 11/02/2024 6:56:52 AM us Priti Alex TERRITORY ACCOUNT MANAGER ECG ORDERABLES Final Result MUSE * US Duplex Mcl-Xao-Ufocnze Comp (10/31/2024 10:19 AM EDT) Only the [...] EXAM: US ABDOMEN LIMITED EXAM: US DUPLEX [id number] COMPLETE INDICATION: Post-op liver transplant COMPARISON: None [...] visualized secondary to poor acoustic windows. The [place] right kidney measures 11.6 cm in length. [...] EXAM: US ABDOMEN LIMITED EXAM: US DUPLEX [id number] COMPLETE INDICATION: Post-op liver transplant COMPARISON: None [...] well visualized secondary to poor acousticwindows. The [place] right kidney measures 11.6 cm in length. [...] 10/31/2024 10:35 AM EDT us Beata Horner TERRITORY ACCOUNT MANAGER IMG US ORDERABLES Final R [...] EXAM: US ABDOMEN LIMITED EXAM: US DUPLEX [id number] COMPLETE INDICATION: Post-op liver transplant COMPARISON: None [...] visualized secondary to poor acoustic windows. The [place] right kidney measures 11.6 cm in length. [...] EXAM: US ABDOMEN LIMITED EXAM: US DUPLEX [id number] COMPLETE INDICATION: Post-op liver transplant COMPARISON: None [...] well visualized secondary to poor acousticwindows. The [place] right kidney measures 11.6 cm in length. [...] at 10/31/2024 10:35 AM EDT Beata Horner [facility] US ORDERABLES Final R esult [...] 10/31/2024 10:29 AM EDT us Beata Horner [facility] US ORDERABLES Final R esult * Prepare RBC, leukoreduced, 1 Units (10/29/2024 6:16 AM EDT) Only the most recent of6 resultswithin the time period is included. Product Code U9718Z34 [facility] Unit Number [id number] [facility] Dispense Status Presumed Transfused_PT [facility] Blood Expiration Date [id number] [facility] Coding System [id number] [facility] Blood Bank Product us Shay Guzmán MD BLOOD BANK PRODUCT O RDERABLES Final Result [facility] * (ABNORMAL) TEG-Bypass/ECMO/Liver HN (Factor function, Platelet/Fibrin Clot Strength w/Clot Breakdown, Heparinase In All Channels) (10/29/2024 5:07 AM EDT) Only the most recent of13 resultswithin the time period is included. Citrated Kaolin Reaction Time (TEGECMOLIVER) 8.9 4.6 - 9.1 minutes 10/29/2024 7:04 AM EDT [facility] Citrated Kaolin W/Heparinase Reaction Time (TEGECMOLIVER) 7.4 4.3 - 8.3 minutes 10/29/2024 7:04 AM EDT [facility] Citrated Kaolin Maximum Amplitude (TEGECMOLIVER) 52.9 52.0 - 69.0 mm 10/29/2024 7:04 AM EDT [facility] Citrated Functional Fibrinogen W/Heparinase Maximum Amplitude(TEGEC MOLIVER) 20.7 15.0 - 34.0 mm 10/29/2024 7:04 AM EDT [facility] Citrated Rapid Teg W/Heparinase Maximum Amplitude (TEGECMOLIVER) 49.7(L) 53.0 - 69.0 mm 10/29/2024 7:04 AM EDT [facility] Citrated Kaolin w/Heparinase Percent Lysis (TEGECMOLIVER) 0.0 0.0 - 3.2 % 10/29/2024 7:04 AM EDT [facility] Whole Blood (Citrate) 10/29/2024 5:07 AM EDT 10/29/2024 5:10 AM EDT Kemar Sahni MD LAB BLOOD ORDERABLES Final Result Performing Organization Address [facility] de Phone Number [facility] [address] * Transfuse RBC Transfusion Rate: Per dept routine (10/28/2024 5:23 PM EDT) Only the most recent of16 resultswithin the time period is included. Shay Guzmán MD NURSING TREATMENT OR DERABLES - BLOOD ADMIN Final Result Performing Organization Address [facility] de Phone Number EXTERNAL * (ABNORMAL) Lactic Acid, STAT (10/28/2024 11:09 AM EDT) Only the most recent of8 resultswithin the time period is included. Lactate 0.3(L) 0.5 - 2.2 mmol/L 10/28/2024 11:37 AM EDT [facility] Plasma 10/28/2024 11:0 9 AM EDT 10/28/2024 11:15 AM EDT Carlos Marks MD LAB BLOOD ORDERABLES Final Result Performing Organization Address [facility] de Phone Number [facility] [address] * Prepare Platelets, leukoreduced (10/28/2024 6:15 AM EDT) Only the most recent of4 resultswithin the time period is included. Product Code E5606S72 [facility] Unit Number [id number] [facility] Dispense Status Presumed Transfused_PT [facility] Blood Expiration Date 870383495245 [facility] Coding System [id number] HCLL Product Code M5069U87 [facility] Unit Number [id number] [facility] Dispense Status Presumed Transfused_PT [facility] Blood Expiration Date 472184467905 HCLL Coding System [id number] HCLL us Attending Provider Unknown BLOOD BANK PRODUCT OR DERABLES Final Result Performing Organization Address [facility] de Phone Number [facility] * Prepare Fresh Frozen Plasma (10/28/2024 6:15 AM EDT) Only the most recent of4 resultswithin the time period is included. Product Code D8575B51 [facility] Unit Number [id number] [facility] Dispense Status Released from Crossmatch_RE [facility]LL Blood Expiration Date [id number] HCLL Coding System [id number] HCLL Product Code X4660Z33 HCLL Unit Number [id number] [facility]LL Dispense Status Presumed Transfused_PT HCLL Blood Expiration Date HCLL Coding System [id number] HCLL Product Code M3875Z16 HCLL Unit Number [id number] HCLL Dispense Status Released from Crossmatch_RE [facility]LL Blood Expiration Date HCLL Coding System [id number] HCLL Product Code Z8566U25 HCLL Unit Number [id number] [facility]LL Dispense Status Presumed Transfused_PT HCLL Blood Expiration Date HCLL Coding System [id number] HCLL Product Code C2227A73 HCLL Unit Number [id number] [facility]LL Dispense Status Released from Crossmatch_RE HCLL Blood Expiration Date [id number] HCLL Coding System [id number] HCLL us Attending Provider Unknown BLOOD BANK PRODUCT OR DERABLES Final Result Performing Organization Address [facility] de Phone Number [facility] * Prepare Cryoprecipitate, 1 Units (10/28/2024 6:15 AM EDT) Only the most recent of4 resultswithin the time period is included. Product Code R8818I54 [facility] Unit Number [id number] [facility]LL Dispense Status Presumed Transfused_PT HCLL Blood Expiration Date HCLL Coding System [id number] HCLL Product Code M9644V70 HCLL Unit Number [id number] HCLL Dispense Status Presumed Transfused_PT HCLL Blood Expiration Date HCLL Coding System [id number] [facility]LL Blood Bank Product John Pina MD BLOOD BANK PRODUCT ORDERABLES F inal Result [facility] * (ABNORMAL) Blood Gas, Arterial, STAT (10/27/2024 2:40 PM EDT) Only the most recent of6 resultswithin the time period is included. O2 Sat, Arterial 98 10/27/2024 2:46 PM EDT [facility] FIO2 RA 10/27/2024 2:46 PM EDT [facility] pH, Arterial 7.37 7.35 - 7.45 10/27/2024 2:46 PM EDT [facility] pCO2, Arterial 35 35 - 45 mm Hg 10/27/2024 2:46 PM EDT [facility] pO2, Arterial 92 80 - 100 mm Hg 10/27/2024 2:46 PM EDT [facility] HCO3, Arterial 21(L) 22 - 26 mmol/L 10/27/2024 2:46 PM EDT [facility] CO2 Content,Arteri al 21(L) 23 - 27 mmol/L 10/27/2024 2:46 PM EDT [facility] Base Excess, Arterial -4.6(L) -2.0 - 3.0 mmol/L 10/27/2024 2:46 PM EDT [facility] %HBO2, Arterial 95.4 95.0 - 98.0 % 10/27/2024 2:46 PM EDT [facility] Carboxyhemoglo bin, Arterial 1.6 % 10/27/2024 2:46 PM EDT [facility] Comment: CARBOXYHEMOGLOBIN (CO) REFERENCE RANGES: Non-Smokers: <2 % Smokers: <8 % TOXIC: >20 % Methemoglobin, Arterial 1.0 0.0 - 1.5 % 10/27/2024 2:46 PM EDT [facility] Reduced hemoglobin, Arterial 2.1 0.0 - 5.0 % 10/27/2024 2:46 PM EDT [facility] Blood, Arterial 10/27/2024 2 :40 PM EDT 10/27/2024 2:44 PM EDT Narrative [facility] - 10/27/2024 2:46 PM EDT Post extubation us John Coulter MD LAB BLOOD ORDERABLES Final R esult [facility] [address] [place] [address], [facility] * CARISA Rhythm Strip - Scan (10/27/2024 9:25 AM EDT) Only the most recent of2 [...] Positive( A) Negative 10/27/2024 11:30 AM EDT [facility] Comment:Presence of detectab le VCA IgG antibodies. 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 EBV IGG NUM 314.00(H) 0.00 - 17.99 U/mL 10/27/2024 11:30 AM EDT [facility] Serum 10/27/2024 8:00 AM EDT 10/27/2024 8:20 AM EDT Kemar Sahni MD LAB BLOOD ORDERABLES Final Result [facility] [address] * Hemoglobin A1c (10/27/2024 8:00 AM [...] Sahni MD LAB BLOOD ORDERABLES Final Result [facility] [address] * X-ray Abdomen AP view (10/27/2024 [...] 6:09 AM EDT) Only the most recent of5 resultswithin the time period is included. Ben Blake MD NURSING TREATMENT ORDERABLES - BLOOD ADMIN Final Result * (ABNORMAL) Arterial Blood Gas Panel (10/27/2024 6:09 AM EDT) Only the most recent of2 resultswithin the time period is included. O2Sat (ABGP) 100 10/27/2024 6:17 AM EDT [facility] pH (ABGP) 7.30(L) 7.35 - 7.45 10/27/2024 6:17 AM EDT [facility] PCO2 (ABGP) 41 35 - 45 mm Hg 10/27/2024 6:17 AM EDT [facility] PO2 (ABGP) 192(H) 80 - 100 mm Hg 10/27/2024 6:17 AM EDT [facility] HCO3 (ABGP) 21(L) 22 - 26 mmol/L 10/27/2024 6:17 AM EDT [facility] CO2 Content (ABGP) 22(L) 23 - 27 mmol/L 10/27/2024 6:17 AM EDT [facility] Base Excess (ABGP) -5.7(L) -2.0 - 3.0 mmol/L 10/27/2024 6:17 AM T [facility] Sodium (ABGP) 138 136 - 146 mEq/L 10/27/2024 6:17 AM [facility] Potassium (ABGP) 3.3(L) 3.5 - 5.0 mEq/L 10/27/2024 6:17 AM [facility] Comment:In the event of in-v itro hemolysis, potassium results may be falsely elevated. Always interpret lab results in conjunction with clinical findings. If hemolysis is suspected, a serum sample may be collected for repeat assessment of potassium. Calcium, Free (ABGP) 5.28 4.50 - 5.30 mg/dL 10/27/2024 6:17 AM [facility] Glucose (ABGP) 112(H) 70 - 100 mg/dL 10/27/2024 6:17 AM [facility] Comment:There is interferenc e with whole blood glucose results on this method when Hematocrit is <25% or >60%. HCT (ABGP) 20.0(L) 40.0 - 52.0 % 10/27/2024 6:17 AM T [facility] HGB (ABGP) 6.5(L) 14.0 - 18.0 g/dL 10/27/2024 6:17 AM [facility] %HBO2 (ABGP) 96.8 95.0 - 98.0 % 10/27/[facility]24 [facility] Carboxyhgb (ABGP) 2.1 % 025 6:17 AM [facility] Comment: CARBOXYHEMOGLOBIN (CO) REFERENCE RANGES: Non-Smokers: <2 % Smokers: <8 % TOXIC: >20 % Methemoglobin (ABGP) 1.0 0.0 - 1.5 % 10/27/2024 6:17 AM EDT [facility] Reduced Hemoglobin (ABGP) 0.2 0.0 - 5.0 % 10/27/2024 6:17 AM EDT [facility] Lactic Acid (ABGP) 0.4(L) 0.5 - 1.6 mmol/L 10/27/2024 6:17 AM EDT [facility] Blood, Arterial 10/27/2024 6 :09 AM EDT 10/27/2024 6:14 AM EDT Ben Blake MD LAB BLOOD ORDERABLES Final Re sult Performing Organization Address [facility] Co de Phone Number [facility] [address] [place] [address], [facility] * Transfuse Fresh Frozen Plasma (10/27/2024 5:49 AM EDT) Only the most recent of14 resultswithin the time period is included. Ben [...] MD LAB BLOOD ORDERABLES Final Resul t [facility] [address] [facility] [place] [address] * Surgical Pathology Exam (10/27/2024 2:38 AM EDT) Only the most recent of2 resultswithin the time period is included. Tissue LEFT KIDNEY STRUCTURE / Unknown 10/27/2024 2:38 AM EDT Narrative [facility] - 10/27/2024 12:00 AM EDT CASE: [id number] PATIENT: BLAIR ANDERSON Clinical History: Transplant kidney with bile duct reconstruction Pre-Operative Diagnosis: Acute kidney injury superimposed on CKD Post-Operative Diagnosis: None Given Specimen(s) Submitted: A. baseline renal biopsy ; B. right lobe liver biopsy; C. left lobe liver biopsy CPT Code(s): 45253 X 1; 95784 X 2; 14399 X 4 Additional Information: FINAL DIAGNOSIS: A. [...] parenchyma, which is entirely submitted in cassette [facility]-[id number] A1. (NAA Mckeon/rr) B. Received in formalin, labeled with the patient's name Blair Anderson and right lobe liver biopsy are two green-brown tissue cores measuring 1.8 and 2.0 cm in length, each with a diameter of 0.1 cm, which are entirely submitted between blue biopsy sponges in cassette [facility]-[id number] B1-B2. (NAA Mckeon/ns) C. Received [...] Pathologist signing this report is located at [facility], [address] [place] [address], [id number], , CLIA ID: [id number] ADDENDUM: A. Kidney, allograft, baseline, wedge biopsy: [...] Pathologist signing this report is located at [facility], [address] [place] [address], [id number], , CLIA ID: [id number] Kemar Sahni MD PATHOLOGY/CYTOLOGY ORDERABL ES Edited Result - Final [facility] * Routine Culture plus Stain (10/27/2024 2:15 AM EDT) Only the most recent of2 resultswithin the time period is included. Gram Stain Result No Polymorphonuclear Leukocytes Seen [facility] Gram Stain Result No Organisms Seen; [facility] Culture Result No Growth After 3 Days [facility] Fluid SPECIMEN FROM KIDNEY / Unknown 10/27/2024 2:15 AM EDT 10/27/2024 4:24 AM EDT Narrative [facility] - 10/30/2024 9:26 AM EDT 1) perfusate us Harvey Domínguez III, MD MICROBIOLOGY - GENE RAL ORDERABLES Final Result Performing Organization Address [facility] Co de Phone Number [facility] [address]. [address] * Fungus culture (10/27/2024 2:15 AM EDT) Culture Result No Fungus Isolated At 4 Weeks [facility] Fluid SPECIMEN FROM KIDNEY / Unknown 10/27/2024 2:15 AM EDT 10/27/2024 4:24 AM EDT [facility] - 11/24/2024 7:52 AM EDT 1) perfusate us Harvey Domínguez III, MD MICROBIOLOGY - GENE RAL ORDERABLES Final Result Performing Organization Address [facility] de Phone Number [address] * Anaerobic culture (10/27/2024 2:15 AM EDT) Culture Result No Anaerobes Isolated in 5 Days [facility] Fluid SPECIMEN FROM KIDNEY / Unknown 10/27/2024 2:15 AM EDT 10/27/2024 4:24 AM EDT [facility] - 10/31/2024 11:43 AM EDT 1) perfusate us Harvey Domínguez III, MD MICROBIOLOGY - GENE RAL ORDERABLES Final Result Performing Organization Address [facility] de Phone Number [address] [facility]. [address] * (ABNORMAL) TEG-Standard Global Hemostasis (Rapid TEG with Heparin Effect, Contains a Baseline TEG) (10/27/2024 1:51 AM EDT) Only the most recent of2 resultswithin the time period is included. Citrated Kaolin Reaction Time (TEGHEPARINASE) 10.6(H) 4.6 - 9.1 minutes 10/27/2024 2:44 AM EDT [facility] Citrated Rapid Teg Maximum Amplitude (TEGHEPARINASE) 42.3(L) 52.0 - 70.0 mm 10/27/2024 2:44 AM EDT [facility] Citrated Functional Fibrinogen Maximum Amplitude (TEGHEPARINASE) 15.0 15.0 - 32.0 mm 10/27/2024 2:44 AM EDT [facility] Citrated Kaolin W/Heparinase Reaction Time (TEGHEPARINASE) 10.5(H) 4.3 - 8.3 minutes 10/27/2024 2:44 AM EDT [facility] Citrated Kaolin K-Time (TEGHEPARINASE) 2.9(A) 0.8 - 2.1 minutes 10/27/2024 2:44 AM EDT [facility] Citrated Kaolin Angle (TEGHEPARINASE) 60.4(A) 63.0 - 78.0 degrees 10/27/2024 2:44 AM EDT [facility] Citrated Kaolin Maximum Amplitude (TEGHEPARINASE) 42.9(L) 52.0 - 69.0 mm 10/27/2024 2:44 AM EDT [facility] Citrated Functional Fibrinogen- Fibrinogen Level (TEGHEPARINASE) 273.7(L) 278.0 - 581.0 mg/dL 10/27/2024 2:44 AM EDT [facility] Whole Blood (Citrate) 10/27/2024 1:51 AM EDT 10/27/2024 2:03 AM EDT us John Pina MD LAB BLOOD ORDERABLES Final Resu lt [facility] [address] [place] [address], [facility] * Calcium Free, Serum (10/27/2024 12:13 AM EDT) Only the most recent of2 resultswithin the time period is included. Free Calcium, Ser 5.20 4.40 - 5.40 mg/dL 10/27/2024 12:37 AM EDT [facility] Comment:Free calcium levels vary inversely with pH by approximately 5% for each 0.1 unit of pH change. Assay results have been normalized to pH = 7.40. Serum 10/27/2024 12:1 3 AM EDT 10/27/2024 12:29 AM EDT Narrative [facility] - 10/27/2024 12:37 AM EDT This test has been developed and its performance characteristics determined by [facility] which is certified under the [...] ORDERABLES Final Resu lt Performing Organization Address [facility] de Phone Number [facility] [address] * Repeat Crossmatch (Recipient Sample) (10/26/2024 4:42 PM EDT) Repeat Cx - Recipient The request and specimen(s) for this test have been received and transported to the [facility] at [address] [place] [address]. The [facility] will report results directly to the client. 10/26/2024 4:49 PM EDT [facility] Whole Blood 10/26/2024 4:42 PM EDT 10/26/2024 4:49 PM EDT Narrative [facility] - 10/26/2024 4:49 PM EDT To be sent to [facility] for Donor UNOS#[id number] cross match with Blair Anderson Sveta Mojica MD LAB BLOOD ORDERABLES Final Resu lt Performing Organization Address [facility] Co de Phone Number [facility] [address] * (ABNORMAL) Fibrinogen (10/26/2024 6:10 AM EDT) Only the most recent of2 resultswithin the time period is included. Fibrinogen 160(L) 218 - 406 mg/dL 10/26/2024 6:41 AM EDT [facility] Plasma 10/26/2024 6:10 AM EDT 10/26/2024 6:26 AM EDT Sveta Mojica MD LAB BLOOD ORDERABLES Final Resu lt Performing Organization Address [facility] Co de Phone Number [facility] [address] * (ABNORMAL) POC INR (10/26/2024 5:16 AM EDT) Only the most recent of6 resultswithin the time period is included. Prothrombin Time INR, POC 2.4(H) 0.8 - 1.4 10/27/2024 6:51 AM EDT [facility] Comment: Test results may vary [...] Result Performing Organization Address [facility] Co de Phone Number [facility] [address] [facility]. [address] * POC Lactate (10/26/2024 5:14 AM EDT) Only the most recent of6 resultswithin the time period is included. POC Lactate 1.76 0.50 - 2.20 mmol/L 10/26/2024 5:31 AM EDT [facility] Blood, Arterial 10/26/2024 5 :14 AM EDT 10/26/2024 5:31 AM EDT us Harvey Domínguez III, MD POINT OF CARE TEST ORDERABLES Final Result Performing Organization Address [facility]/ZIP Co de Phone Number [facility] [address] [facility]. [address] * POC TCO2 (10/26/2024 5:14 AM EDT) Only the most recent of6 resultswithin the time period is included. POC TCO2, Arterial 23 23 - 27 mmol/L 10/26/2024 5:31 AM EDT [facility] Blood, Arterial 10/26/2024 5 :14 AM EDT 10/26/2024 5:31 AM EDT us Harvey Domínguez III, MD POINT OF CARE TEST ORDERABLES Final Result Performing Organization Address [facility] Co de Phone Number [facility] [address] [place] [facility]. [address] * POC Sodium (10/26/2024 5:14 AM EDT) Only the most recent of6 resultswithin the time period is included. POC Sodium 138 136 - 146 mmol/L 10/26/2024 5:31 AM EDT [facility] Blood, Arterial 10/26/2024 5 :14 AM EDT 10/26/2024 5:31 AM EDT us Harvey Domínguez III, MD POINT OF CARE TEST ORDERABLES Final Result Performing Organization Address [facility]/ZIP Co de Phone Number [facility] [address] [place] [facility]. [address] * (ABNORMAL) POC Potassium (10/26/2024 5:14 AM EDT) Only the most recent of6 resultswithin the time period is included. POC Potassium 2.8(LL) 3.5 - 5.3 mmol/L 10/26/2024 5:31 AM EDT [facility] Blood, Arterial 10/26/2024 5 :14 AM EDT 10/26/2024 5:31 AM EDT us Harvey Domínguez III, MD POINT OF CARE TEST ORDERABLES Final Result Performing Organization Address [facility] Co de Phone Number [facility] [address] [facility]. [address] * (ABNORMAL) POC PO2 (10/26/2024 5:14 AM EDT) Only the most recent of6 resultswithin the time period is included. POC pO2, Arterial 133(H) 80 - 100 mm Hg 10/26/2024 5:31 AM EDT [facility] Blood, Arterial 10/26/2024 5 :14 AM EDT 10/26/2024 5:31 AM EDT us Harvey Domínguez III, MD POINT OF CARE TEST ORDERABLES Final Result Performing Organization Address [facility] Co de Phone Number [facility] [address] [facility]. [address] * POC PCO2 (10/26/2024 5:14 AM EDT) Only the most recent of6 resultswithin the time period is included. POC pCO2, Arterial 45 35 - 45 mm Hg 10/26/2024 5:31 AM EDT [facility] Blood, Arterial 10/26/2024 5 :14 AM EDT 10/26/2024 5:31 AM EDT Harvey Domínguez III, MD POINT OF CARE TEST ORDERABLES Final Result Performing Organization Address [facility] Co de Phone Number [facility] [address] [place] [address]. [address] * (ABNORMAL) POC O2 SAT (10/26/2024 5:14 AM EDT) Only the most recent of6 resultswithin the time period is included. POC O2 Saturation, Arterial 99(H) 95 - 98 % 10/26/2024 5:31 AM EDT [facility] Blood, Arterial 10/26/2024 5 :14 AM EDT 10/26/2024 5:31 AM EDT us Harvey Domínguez III, MD POINT OF CARE TEST ORDERABLES Final Result [facility] [address] [place] [address]. [address] * POC HCO3 (10/26/2024 5:14 AM EDT) Only the most recent of6 resultswithin the time period is included. POC HCO3, Arterial 22 22 - 26 mmol/L 10/26/2024 5:31 AM EDT [facility] Blood, Arterial 10/26/2024 5 :14 AM EDT 10/26/2024 5:31 AM EDT us Harvey Domínguez III, MD POINT OF CARE TEST ORDERABLES Final Result Performing Organization Address [facility] Co de Phone Number [facility] [address] [facility]. [address] * POC Chloride (10/26/2024 5:14 AM EDT) Only the most recent of6 resultswithin the time period is included. POC Chloride 104 98 - 110 mmol/L 10/26/2024 5:31 AM EDT [facility] Blood, Arterial 10/26/2024 5 :14 AM EDT 10/26/2024 5:31 AM EDT us Harvey Domínguez III, MD POINT OF CARE TEST ORDERABLES Final Result Performing Organization Address [facility] Co de Phone Number [facility] [address] [facility]. [address] * (ABNORMAL) POC Base Excess (10/26/2024 5:14 AM EDT) Only the most recent of6 resultswithin the time period is included. POC Base Excess, Arterial -5(L) -2 - 3 mmol/L 10/26/2024 5:31 AM EDT [facility] Blood, Arterial 10/26/2024 5 :14 AM EDT 10/26/2024 5:31 AM EDT us Harvey Domínguez III, MD POINT OF CARE TEST ORDERABLES Final Result Performing Organization Address [facility] Co de Phone Number [facility] [address] [facility]. [address] * POC Anion Gap (10/26/2024 5:14 AM EDT) Only the most recent of6 resultswithin the time period is included. Pathologist [facility] POC Anion Gap, Arterial 12 3 - 16 mmol/L 10/26/2024 5:31 AM EDT [facility] Blood, Arterial 10/26/2024 5 :14 AM EDT 10/26/2024 5:31 AM EDT us Harvey Domínguez III, MD POINT OF CARE TEST ORDERABLES Final Result Performing Organization Address [facility] Co de Phone Number [facility] [address] * POC Sample Type (10/26/2024 5:14 AM EDT) Only the most recent of6 resultswithin the time period is included. POC Sample Type Arterial 10/26/2024 5:31 AM EDT [facility] Blood, Arterial 10/26/2024 5 :14 AM EDT 10/26/2024 5:31 AM EDT us Harvey Domínguez III, MD POINT OF CARE TEST ORDERABLES Final Result Performing Organization Address [facility] Co de Phone Number [facility] [address] * (ABNORMAL) POC pH (10/26/2024 5:14 AM EDT) Only the most recent of6 resultswithin the time period is included. POC pH, Arterial 7.29(L) 7.35 - 7.45 10/26/2024 5:31 AM EDT [facility] Blood, Arterial 10/26/2024 5 :14 AM EDT 10/26/2024 5:31 AM EDT us Harvey Domínguez III, MD POINT OF CARE TEST ORDERABLES Final Result Performing Organization Address [facility] Co de Phone Number [facility] [address] [place] [address]. [address] * (ABNORMAL) POC hematocrit (10/26/2024 5:14 AM EDT) Only the most recent of6 resultswithin the time period is included. POC Hematocrit 28.0(L) 40 - 52 % 10/26/2024 5:31 AM EDT [facility] Blood, Arterial 10/26/2024 5 :14 AM EDT 10/26/2024 5:31 AM EDT us Harvey Domínguez III, MD POINT OF CARE TEST ORDERABLES Final Result Performing Organization Address [facility] Co de Phone Number [facility] [address] [place] [address]. [address] * (ABNORMAL) POC Ionized Calcium (10/26/2024 5:14 AM EDT) Only the most recent of6 resultswithin the time period is included. POC Ionized Calcium 5.50(H) 4.50 - 5.30 mg/dL 10/26/2024 5:31 AM EDT [facility] Blood, Arterial 10/26/2024 5:14 AM EDT 10/26/2024 5:31 AM EDT us Harvey Domínguez III, MD POINT OF CARE TEST ORDERABLES Final Result Performing Organization Address [facility] de Phone Number [facility] [address] [facility]. [address] * (ABNORMAL) POC Glucose (10/26/2024 5:14 AM EDT) Only the most recent of6 resultswithin the time period is included. POC Glucose, Arterial 183(H) 70 - 100 mg/dL 10/26/2024 5:31 AM EDT [facility] Blood, Arterial 10/26/2024 5 :14 AM EDT 10/26/2024 5:31 AM EDT Harvey Domínguez III, MD POINT OF CARE TEST ORDERABLES Final Result Performing Organization Address [facility] de Phone Number [facility] [address] [facility]. [address] * (ABNORMAL) POC Hemoglobin (10/26/2024 5:14 AM EDT) Only the most recent of6 resultswithin the time period is included. Pathologist [facility] POC Hemoglobin 9.5(L) 14.0 - 18.0 g/dL 10/26/2024 5:31 AM EDT [facility] Blood, Arterial 10/26/2024 5 :14 AM EDT 10/26/2024 5:31 AM EDT Harvey Domínguez III, MD POINT OF CARE TEST ORDERABLES Final Result Performing Organization Address [facility] de Phone Number [facility] [address] [facility]. [address] * (ABNORMAL) TEG-Global With Lysis (Baseline TEG with LY30, Will NOT Show Heparin Effect) (53:31 AM EDT) Citrated Kaolin Reaction Time (TEGLYSIS) 6.8 4.6 - 9.1 minutes 10/26/2024 5:02 AM EDT [facility] Citrated Rapid Teg Maximum Amplitude (TEGLYSIS) <40.0(L) 52.0 - 70.0 mm 10/26/2024 5:02 AM EDT [facility] Citrated Functional Fibrinogen Maximum Amplitude (TEGLYSIS) <4.0(L) 15.0 - 32.0 mm 10/26/2024 5:02 AM EDT [facility] Citrated Kaolin Percent Lysis (TEGLYSIS) 1.4 0.0 - 2.6 % 10/26/2024 5:02 AM EDT [facility] Whole Blood (Citrate) 10/26/2024 3:31 AM EDT 10/26/2024 3:40 AM EDT us Eber Quinones MD LAB BLOOD ORDERABLES Fin al Result [facility] [address] [place] [address], [facility] * CENTRAL LINE SINGLE LUMEN PERFORMABLE (10/25/2024 11:13 PM EDT) Narrative Ben Blake MD - 10/25/2024 11:13 PM EDT Ben Blake MD 10/26/2024 7:45 PM [facility] Date/Time: 10/25/2024 11:13 PM Performed [...] Insert Arterial Line (10/25/2024 10:45 PM EDT) Narrative Ben Blake MD - 10/25/2024 10:45 PM EDT Ben [...] + IgM) Nonreactive 10/25/2024 11:13 PM EDT [facility] Serum 10/25/2024 10:1 7 PM EDT 10/25/2024 10:17 PM EDT Narrative [facility] - 10/25/2024 11:13 PM EDT HAV antibodies not detected us Aysha Gill MD LAB BLOOD ORDERABLES F inal Result [facility] [address] * Iron Studies (Iron + TIBC) (10/25/2024 10:17 PM EDT) Iron 128 50 - 212 ug/dL 10/25/2024 10:44 PM EDT [facility] % Iron Saturation SEE COMMENT 15.0 - 55.0 % 10/25/2024 10:44 PM EDT [facility] Comment:Unable to calculate result because contributing result outside reportable range.. TIBC SEE COMMENT 261 - 462 ug/dL 10/25/2024 10:44 PM EDT [facility] Comment:Unable to calculate result because contributing result outside reportable range.. Serum 10/25/2024 10:1 7 PM EDT 10/25/2024 10:17 PM EDT Aysha Gill MD LAB BLOOD ORDERABLES F inal Result [facility] [address] [facility]. [address] * Hepatitis B Core Antibody (10/25/2024 10:17 PM EDT) Hep B Core Total Ab Nonreactive Nonreactive 10/25/2024 11:07 PM EDT [facility] Comment:Health Department no tified in accordance with reportable infectious disease guidelines. Serum 10/25/2024 10:1 7 PM EDT 10/25/2024 10:17 PM EDT Narrative [facility] - 10/25/2024 11:07 PM EDT A nonreactive final interpretation indicates that anti-HBc antibodies were not detected in the sample; it is possible that the individual is not infected with HBV. Aysha Gill MD LAB BLOOD ORDERABLES F inal Result Performing Organization Address [facility]/ZIP Co de Phone Number [facility] [address] [facility]. [address] * Hepatitis C Antibody (10/25/2024 10:17 PM EDT) Pathologist [facility] HCV Ab Nonreactive Nonreactive 10/25/2024 11:16 PM EDT [facility] Comment:Health Department no tified in accordance with reportable infectious disease guidelines. Serum 10/25/2024 10:1 7 PM EDT 10/25/2024 10:17 PM EDT Narrative [facility] - 10/25/2024 11:16 PM EDT Antibodies to HCV not detected; does not exclude the possibility of exposure to HCV. Aysha Gill MD LAB BLOOD ORDERABLES F inal Result [facility] [address] [facility]. [address] * HIV 1+2 Antibody/Antigen with Reflex (10/25/2024 10:17 PM EDT) Pathologist [facility] HIV 1+2 AB/AGN Nonreactive Nonreactive 10/25/2024 11:03 PM EDT [facility] Serum 10/25/2024 10:1 7 PM EDT 10/25/2024 10:16 PM EDT Narrative [facility] - 10/25/2024 11:03 PM EDT \HIVRNR us Aysha Gill MD LAB BLOOD ORDERABLES F inal Result Performing Organization Address [facility]/ZIP Co de Phone Number [facility] [address] [place] [address]. [address] * (ABNORMAL) Hepatitis B Surface Antibody, Quantitati (10/25/2024 10:17 PM EDT) Pathologist [facility] HBSAB NUMBER 10.70(H) 0.00 - 9.99 mIU/mL 10/25/2024 11:52 PM EDT [facility] Hep B S Ab Equivocal (A) Nonreactive 10/25/2024 11:52 PM EDT [facility] Serum 10/25/2024 10:1 7 PM EDT 10/25/2024 10:17 PM EDT us Aysha Gill MD LAB BLOOD ORDERABLES F inal Result Performing Organization Address [facility] Co de Phone Number [address] * Hepatitis B surface antigen (10/25/2024 10:17 PM EDT) Pathologist [facility] Hep B Surface Ag Nonreactive Nonreactive 10/25/2024 11:12 PM EDT [facility] Comment:Health Department no tified in accordance with reportable infectious disease guidelines. Serum 10/25/2024 10:1 7 PM EDT 10/25/2024 10:17 PM EDT Narrative [facility] - 10/25/2024 11:12 PM EDT Specimen is considered negative for HBsAg. us Aysha Gill MD LAB BLOOD ORDERABLES F inal Result [facility] [address] [facility]. [address] * (ABNORMAL) APTT, NO ANTICOAGULANT (10/25/2024 10:17 PM EDT) aPTT 41.7(H) 25.5 - 35.0 seconds 10/25/2024 10:36 PM EDT [facility] Plasma 10/25/2024 10:1 7 PM EDT 10/25/2024 10:17 PM EDT us Aysha Gill MD LAB BLOOD ORDERABLES F inal Result Performing Organization Address [facility]/ZIP Co de Phone Number [facility] [address] [facility]. [address] * PTH (10/25/2024 10:17 PM EDT) PTH 36.0 12.0 - 88.0 pg/mL 10/25/2024 11:01 PM EDT [facility] Serum 10/25/2024 10:1 7 PM EDT 10/25/2024 10:17 PM EDT us Aysha Gill MD LAB BLOOD ORDERABLES F inal Result Performing Organization Address [facility]/ZIP Co de Phone Number [facility] [address] [facility]. [address] * (ABNORMAL) Ferritin (10/25/2024 10:17 PM EDT) Ferritin 623.2(H) 23.9 - 336.2 ng/mL 10/25/2024 11:02 PM EDT [facility] Serum 10/25/2024 10:1 7 PM EDT 10/25/2024 10:17 PM EDT us Aysha Gill MD LAB BLOOD ORDERABLES F inal Result [facility] [address] * (ABNORMAL) Venous Blood Gas, Line/Syringe (10/25/2024 10:00 PM EDT) PH-Line Draw 7.38 7.32 - 7.42 10/25/2024 10:08 PM EDT [facility] PCO2-Line Draw 33(L) 41 - 51 mm Hg 10/25/2024 10:08 PM EDT [facility] PO2-Line Draw 33 25 - 40 mm Hg 10/25/2024 10:08 PM EDT [facility] HCO3-Line Draw 20(L) 24 - 28 mmol/L 10/25/2024 10:08 PM EDT [facility] CO2 Content-Line Draw 21(L) 25 - 29 mmol/L 10/25/2024 10:08 PM EDT [facility] Base Excess-Line Draw -5.0(L) -2.0 - 3.0 mmol/L 10/25/2024 10:08 PM EDT [facility] %HBO2-Line Draw 53.8 40.0 - 70.0 % 10/25/2024 10:08 PM EDT [facility] Carboxyhgb-Ludivina e Draw 1.9 % 10/25/2024 10:08 PM EDT [facility] Comment: CARBOXYHEMOGLOBIN (CO) REFERENCE RANGES: Non-Smokers: <2 % Smokers: <8 % TOXIC: >20 % Methemoglobin- Line Draw 0.2 0.0 - 1.5 % 10/25/2024 10:08 PM EDT [facility] Reduced Hemoglobin-Ludivina e Draw 44.1(H) 0.0 - 5.0 % 10/25/2024 10:08 PM EDT [facility] Venous, Line Draw 10/25/2024 10:00 PM EDT 10/25/2024 10:04 PM EDT us Aysha Gill MD LAB BLOOD ORDERABLES F inal Result [facility] [address] * Donor Specific Antibody (DSA) (10/25/2024 10:00 PM EDT) AntiDonor Antibodies The request and specimen(s) for this test have been received and transported to the [facility] at [address] [place] [address]. The [facility] will report results directly to the client. 10/25/2024 10:20 PM EDT [facility] Comment:Testing performed by [facility], [facility], [address] [place] [address]. The [facility] report has been forwarded to the appropriate ordering location. Please refer to this report for patient results. Serum 10/25/2024 10:0 0 PM EDT 10/25/2024 10:20 PM EDT Aysha Gill MD LAB BLOOD ORDERABLES F inal Result Performing Organization Address [facility] Co de Phone Number [facility] [address] [place] [address] * Hepatitis C RNA, Quant Reflex to Genotyp (10/25/2024 8:18 PM EDT) Pathologist [facility] International Units Not Detected IU/mL 10/27/2024 11:03 [...] ORDERABLES F inal Result Performing Organization Address [facility] Co de Phone Number [facility] [address] [place] [address], [place] * Toxoplasma gondii antibody, IgG (10/25/2024 8:18 PM EDT) Toxoplasma Gondii IgG <3.0 0.0 - 7.1 IU/mL 10/27/2024 7:55 AM EDT [facility] Comment: Negative <7.2 Equivocal 7.2 - 8.7 Positive >8.7 Serum 10/25/2024 8:18 PM EDT 10/27/2024 8:06 AM EDT Narrative [facility] - 10/27/2024 8:06 AM EDT PERFORMED AT: [facility] [id number] VINYL CUTTER: Bassam Khalil, PhD PHONE: [phone] Aysha Gill MD LAB BLOOD ORDERABLES F inal Result Performing Organization Address [facility]/ZIP Co de Phone Number [address] * ABO/Rh (10/25/2024 7:46 PM EDT) ABO Grouping O 10/25/2024 10:23 PM EDT [facility] Rh Type Positive 10/25/2024 10:23 PM EDT [facility] Blood 10/25/2024 7:46 PM EDT 10/25/2024 9:54 PM EDT Ben Blake MD BLOOD BANK TEST ORDERABLES Fi nal Result [facility] [address] [facility]. [address] * Antibody Screen (10/25/2024 7:46 PM EDT) Antibody Screen Negative 10/25/2024 10:41 PM EDT [facility] Blood 10/25/2024 7:46 PM EDT 10/25/2024 9:54 PM EDT Narrative [facility] - 10/25/2024 10:44 PM EDT Testing performed by [facility] Transfusion Service Ben Blake MD BLOOD BANK TEST ORDERABLES Fi nal Result Performing Organization Address [facility] Co de Phone Number [facility] [address] [place] [address], [facility] * [facility] - HLA Antibody-Detailed Report (10/22/2024 12:32 PM EDT) 10/22/2024 12:3 2 PM EDT Abdulkadir Gaspar MD LAB BLOOD ORDERABLES Final Resul t Performing Organization Address [facility] Co de Phone Number [facility] [place] [address] * HOX - HLA CROSSMATCH + Detailed Antibody (10/20/2024 5:04 PM EDT) 10/20/2024 5:04 PM EDT Abdulkadir Gaspar MD LAB BLOOD ORDERABLES Final Resul t Performing Organization Address [facility] Co de Phone Number [facility] [email or web address] [place] [address] * [facility] - ABO Typing Report (10/20/2024 5:03 PM EDT) 10/20/2024 5:03 PM EDT Abdulkadir Gaspar MD LAB BLOOD ORDERABLES Final Resul t Performing Organization Address [facility] Co de Phone Number [facility] [address] 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, VRE- urine 10/31/2024 0608/2024 Insurance [facility] [employer] [facility] [facility] Member Subscriber Plan / Payer ( fective 2024-2025) Name:Blair Anderson Relation to Subscriber:Self Name:Blair Anderson Payer ID:[id number] Group ID:Not on file Type:Transplant Address: [address] [place] [address] Advance Directives For more information, please contact: [phone] * Full Code (Latest Code Status on [...] 9:55 PM 08/19/2024 4:56 PM Care Teams Pbx Manager Relationship Specialty Start Date End Date Enedina Mcguire NP [address] [place] [address] PCP - General Internal Medicine 10/05/24 Maureen Pantoja, ЮЛИЯ Txp Post Coordinator Transplant Hepatology 10/28/24
--- OUTSIDE RECORDS SUMMARY | 2025-01-20 11:58 | XMS_ITS | Encounter Summary ---
Author Organization [facility] Address [address] [place] [address] Care Team Providers Care Institutional Asset Manager Name Role Phone Enedina Mcguire NP Primary Care Provider [phone] Maureen Pantoja RN Unavailable Unavail able Source [...] release of HIV test results or diagnoses. [id number] Reason for Visit * Reason Comments Medication Refill Encounter Details Date Type Department Care Team (Late st Contact Info) Description 12/21/[address] [facility] Liver Transplant at [address] [address] Lydia Sanchez MD [address] [place] [address] Liver/[place] [address] Encounter for therapeutic drug monitoring; S/P liver transplant ([facility]); Hypomagnesemia; Kidney transplant recipient; Hypertension, unspecified [...] for therapeutic drug monitoring S/P liver transplant ([facility]) Hypomagnesemia Disorders of magnesium metabolism Kidney transplant recipient Hypertension, unspecified type Gastroesophageal reflux disease, unspecified whether esophagitis present documented in this encounter Additional Health Concerns Infection Onset Date Last Indicated Resolved Time 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
--- OUTSIDE RECORDS SUMMARY | 2025-01-20 11:58 | XMS_ITS | Encounter Summary ---
Author Organization [facility] Address [address] [place] [address] Care Team Providers Care Wind Turbine Erector Name Role Phone Enedina Mcguire NP Primary Care Provider [phone] Maureen Pantoja RN Unavailable Unavail able Source [...] release of HIV test results or diagnoses. [id number] Reason for Visit * Reason Comments Critical Lab Results Encounter Details Date Type Department Care Team (Late st Contact Info) Description 01/19/2025 Telephone [facility] Liver Transplant at [address] [place] [phone] Gladis Chisholm MA Critical Lab Results Social History Tobacco [...] In the past 12 months has [employer], gas, oil, or water [employer] threatened to shut off services in your [...] Progress Notes * Maureen Pantoja RN - 01/19/2025 10:00 AM EDT Images from the original note were not included. Urine culture collected 01/14/25. Complete results uploaded to media tab. Culture results with susceptibilities: Will forward results to Kidney Txp Providers and Kidney Txp RN Coordinator for follow-up. * Gladis Chisholm MA - 01/19/2025 9:17 AM EDT [facility] lab called to report: Urine culture results; grew faecium. Will fax over results to clinic. 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
--- OUTSIDE RECORDS SUMMARY | 2025-01-20 11:58 | XMS_ITS | Encounter Summary ---
Author Organization [facility] Address [address] [place] [address] Care Team Providers Care Insurance Defense Attorney Name Role Phone Enedina Mcguire NP Primary Care Provider [phone] Alicia Rankin RN Unavailable Unavail able Source [...] release of HIV test results or diagnoses. [id number] Reason for Visit * Reason Comments Results Medication Dose Change Encounter Details Date Type Department Care Team (Late st Contact Info) Description 12/22/2024 Telephone [facility] Liver Transplant at [address] [address] Alicia Rankin, ЮЛИЯ Results; Medication [...] Recorded In the past 12 months has [employer], gas, oil, or water company threatened to [...] as of this encounter Progress Notes * aMrlene Ro MA - 12/23/2024 8:50 AM EDT [...] for therapeutic drug monitoring S/P liver transplant ([facility]) Hypomagnesemia Disorders of magnesium metabolism Kidney transplant recipient Hypertension, unspecified type Gastroesophageal reflux disease, unspecified whether esophagitis present documented in this encounter Additional Health Concerns Infection Onset Date Last Indicated Resolved Time 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
--- OUTSIDE RECORDS SUMMARY | 2025-01-20 11:58 | XMS_ITS | Encounter Summary ---
Author Organization [facility] Address [address] [place] [address] Care Team Providers Care Boilermaker Welder Name Role Phone Enedina Mcguire APRN Primary Care Provider + Reason for Visit * Reason Comments Med Refill Encounter Details Date Type Department Care Team ([facility] st Contact Info) Description 12/12/2024 Refill [facility] INTERNAL MEDICINE [address] [place] [address] Enedina Mcguire APRN [address] [place], [place] [id number] Acquired hypothyroidism; Secondary esophageal varices without bleeding [...] 30 days sober on 08-05-2024 [facility] Utilities Answer Date Recorded In the past 12 months has [employer], gas, oil, or water [employer] threatened to shut off services in your [...] Score 0 10/02/2022 [facility] - Occupational Stress Questionnaire Answer [...] GED or equivalent No 07/09/2024 Preferred Language Tajik 07/09/2024 PHQ-2 Answer Date Recorded Patient Health [...] 2:15 PM EST Office Visit [facility] PAIN MANAGEMENT [address] [address] Vazquez Christie PA-C [address] [place] [address] documented as of this encounter Visit Diagnoses Diagnosis Acquired hypothyroidism Unspecified hypothyroidism Secondary esophageal varices without bleeding documented in this encounter Additional Health Concerns Assessment Noted Time PHQ-2 Depression Total Score: 1 12/31/19 24 3:25 PM EDT documented as of this encounter Care Teams Boilermaker Welder Relationship Specialty Start Date End Date Enedina Mcguire APRN [address] [place] [address] PCP - General Nurse Practitioner 10/27/24 documented as of this encounter
--- OUTSIDE RECORDS SUMMARY | 2025-01-20 11:58 | XMS_ITS | Encounter Summary ---
Author Organization [facility] Address [address] [place] [address] Care Team Providers Care Medical Reimbursement Specialist Name Role Phone Enedina Mcguire NP Primary Care Provider [phone] Maureen Pantoja RN Unavailable Unavail able Source [...] release of HIV test results or diagnoses. [id number] Health Encounter Details Date Type Department Care Team (Late st Contact Info) Description 12/17/2024 Chart Note [facility] Liver Transplant at [address] [place] [phone] Marlene Ro MA 12/16 Labs entered [facility] Social History Tobacco Use Types [...] In the past 12 months has [employer], gas, oil, or water [employer] threatened to shut off services in your [...] 12/17/2024 10:44 AM EDT 12/16 Labs entered [facility] documented in this encounter Plan [...] 2.4 mg/dL Plasma Narrative Resulting Agency Comment [facility] Historical Provider MD LAB BLOOD ORDERABLES Denisse l Result * (ABNORMAL) Renal Function Panel w/o EGFR (12/16/2024 10:05 AM EDT) Glucose 94 BUN 14 CO2 23(A) 13 - 22 mmol/L Creatinine 0.80 Potassium 4.3 Sodium 141 Chloride 108 Phosphorus 4.9 2.5 - 4.9 mg/dL Calcium 10.0 EGFR 107 mg/dL Albumin 4.4 3.5 - 5.0 g/dL Blood Narrative Resulting Agency Comment [facility] Result Critical access hospital MD LAB BLOOD ORDERABLES Denisse l Result * Protime-INR (12/16/2024 10:05 AM EDT) Pathologist [facility] INR 0.95 0.9 - 1.1 Plasma Narrative Resulting Agency Comment [facility] Result Critical access hospital MD LAB BLOOD ORDERABLES Denisse l Result [...] 4.8 10^3/mL Blood Narrative Resulting Agency Comment [facility] Result Critical access hospital MD LAB BLOOD ORDERABLES Denisse l Result * Hepatic Function Panel (12/16/2024 10:05 AM EDT) Bilirubin, Direct 0.2 Bilirubin, Indirect 0.2 Alkaline Phosphatase 73 ALT 15 AST 19 Total Bilirubin 0.4 Total Protein 6.2 Plasma Narrative Resulting Agency Comment [facility] us Historical Provider LAB BLOOD [...] Date End Date Enedina Mcguire NP [address] [place] [address] PCP - General Internal Medicine 10/05/24 Maureen Pantoja, ЮЛИЯ Txp Post Coordinator Transplant Hepatology 10/28/24 documented as of this encounter
--- OUTSIDE RECORDS SUMMARY | 2025-01-20 11:58 | XMS_ITS | Encounter Summary ---
Author Organization [facility] Address [address] [place] [address] Care Team Providers Care Clinical Rehab Specialist Name Role Phone Enedina Mcguire NP Primary Care Provider + [phone] Maureen Pantoja RN Unavailable Unavail able Source [...] release of HIV test results or diagnoses. [id number] Health Encounter Details Date Type Department Care Team (Late st Contact Info) Description 12/23/2024 Chart Note [facility] Liver Transplant at [address] [place] [phone] Maureen Pantoja, purchasing administrative assistant results from 12/23/24 entered from [facility]. Social History Tobacco Use Types Packs/Day Years Used Date Smoking Tobacco: Former Cigarettes Smokeless Tobacco: Current Alcohol Use Standard Drinks/Week Comments Yes 0 (1 standard drink = 0.6 oz pure alcohol) History of alcohol abuse, reports no use in 3 week- typically endorses use as 4 glasses of wine a days Utilities Answer Date Recorded In the past 12 months has [employer], gas, oil, or water [employer] threatened to shut off services in your [...] EDT Lab results from 12/23/24 entered from [facility]. documented in this encounter Plan of [...] w/o EGFR (12/23/2024 9:53 AM EDT) Pathologist [facility] Glucose 88 BUN 19 CO2 27(A) 13 - 22 mmol/L Creatinine 0.80 Potassium 4.2 Sodium 138 Chloride 105 Phosphorus 5.2(A) 2.5 - 4.9 mg/dL Calcium 9.2 EGFR 107 mg/dL Albumin 4.4 3.5 - 5.0 g/dL Blood us Harvey Domínguez III, MD LAB BLOOD ORDERABLE S Final Result * Protime-INR (12/23/2024 9:53 AM EDT) Pathologist [facility] INR 0.94 0.9 - 1.1 Protime 10.5 Plasma us Harvey Domínguez III, MD LAB BLOOD ORDERABLE S Final Result * (ABNORMAL) CBC and differential (12/23/2024 9:53 AM EDT) Pathologist [facility] Hemoglobin 11.3(A) 13.5 - 17.5 g/dL Hematocrit [...] as of this encounter Care Teams Clinical Rehab Specialist Relationship Specialty Start Date End Date Enedina Mcguire NP [address] [place] [address] PCP - General Internal Medicine 10/05/24 Maureen Pantoja, ЮЛИЯ Txp Post Coordinator Transplant Hepatology 10/28/24 documented as of this encounter
--- OUTSIDE RECORDS SUMMARY | 2025-01-20 11:58 | XMS_ITS | Encounter Summary ---
Author Organization [facility] Address [address] [place] [address] Care Team Providers Care Forestry Consultant Name Role Phone Enedina Mcguire NP Primary Care Provider [phone] Maureen Pantoja RN Unavailable Unavail able Source [...] release of HIV test results or diagnoses. [id number] Health Encounter Details Date Type Department Care Team (Late st Contact Info) Description 12/18/2024 Refill [facility] Liver Transplant at [address] [place] [phone] Maureen Pantoja, RN Encounter for therapeutic drug monitoring; S/P liver transplant ([facility]-H[facility]); Hypomagnesemia; Kidney transplant recipient; Hypertension, unspecified [...] Recorded In the past 12 months has [employer], gas, oil, or water [employer] threatened to shut off services in your [...] as of this encounter Care Teams Forestry Consultant Relationship Specialty Start Date End Date Enedina Mcguire NP [address] [place] [address] PCP - General Internal Medicine 10/05/24 Maureen Pantoja, RN Txp Post Coordinator Transplant Hepatology 10/28/24 documented as of this encounter
--- OUTSIDE RECORDS SUMMARY | 2025-01-20 11:59 | XMS_ITS | Encounter Summary ---
Author Organization [facility] Address [address] [place] [address] Care Team Providers Care Stopper Maker Name Role Phone Enedina Mcguire NP Primary Care Provider [phone] Maureen Pantoja RN Unavailable Unavail able Source [...] release of HIV test results or diagnoses. [id number] Reason for Visit * Reason Comments Medication Refill Encounter Details Date Type Department Care Team (Late st Contact Info) Description 01/17/2025 Refill [facility] Liver Transplant at [address] [phone] Harvye Domínguez III, MD [address] [place] [phone] Encounter for therapeutic drug monitoring; S/P liver transplant ([facility]); Hypomagnesemia; Kidney transplant recipient; Hypertension, unspecified type; [...] documented as of this encounter Care Teams Stopper Maker Relationship Specialty Start Date End Date Enedina Mcguire NP [address] [place] [address] PCP - General Internal Medicine 10/05/24 Maureen Pantoja, ЮЛИЯ Txp Post Coordinator Transplant Hepatology 10/28/24 documented as of this encounter
--- OUTSIDE RECORDS SUMMARY | 2025-01-20 11:59 | XMS_ITS ---
Author Organization [facility] Address [address] [place] [address] Care Team Providers Care Lye Bath Operator Name Role Phone Enedina Mcguire NP Primary Care Provider + [phone] Maureen Pantoja RN Unavailable Unavail able Transplant Episode Liver Recipient [facility] ([place], [place]) - [facility] Organ Received: Liver Transplanted on 10/26/2024 Marked as Active Follow-up on 10/26/2024 Liver CoordinatorMaureen Pantoja RN Phone: N/A Fax: N/A Email: N/A [place] Organ Diagnosis Organ Primary Contributory Liver Alcohol-Associated [...] N/A N/A Chris Orosco MD Referring Physician [phone] N/A Maureen Leeanna Pantoja, RN Txp Post Coordinator N/A N/A N/A NUBIA Barros Txp Briar Wood Sorter N/A N/A N/A Harvey Domínguez III, MD Txp Surgeon [phone] N/A Mary Butler RN Txp Pre Coordinator N/A N/A N/A Events Post-Transplant Pre-Transplant Admitted: 10/25/2024 Referred: 08/13/2024 Transplanted: 10/26/2024 Evaluation began: Discharged: 11/02/2024 Committee: 10/14/2024 Center waitlisted: Pending Checklist Tasks (Due on or before 02/19/2025) Name Due Date Attached Appoint ment Social Work Consult 01/05/2025 Appointments (12/20/2024 - 02/19/2025) When With Visit Type Description 01/06/2025 Txp Hep - Paci, P Established Patient S/P liver transplant (CMS-HCC) (Primary Dx); Immunosuppression ([facility]-H[facility]); Kidney transplant recipient; Alcohol use disorder 01/06/2025 Txp Hep - Larry, S Established Patient Kidney transplant recipient (Primary Dx); Hypomagnesemia; Hyperphosphatemia; Immunosuppression (CMS-HCC); Viral disease exposure; Hypertension, unspecified type
--- OUTSIDE RECORDS SUMMARY | 2025-01-20 11:59 | XMS_ITS | Encounter Summary ---
Author Organization [facility] Address [address] [place] [address] Care Team Providers Care Pressure Welder Name Role Phone Enedina Mcguire NP Primary Care Provider [phone] Maureen Pantoja RN Unavailable Unavail able Source [...] release of HIV test results or diagnoses. [id number] Reason for Visit * Reason Comments Results Encounter Details Date Type Department Care Team (Riky st Contact Info) Description 01/05/2025 Telephone [facility] Liver Transplant at [address] [phone] Maureen Pantoja, RN Results Social [...] In the past 12 months has e [employer], gas, oil, or water [employer] threatened to shut off services in your [...] documented as of this encounter Care Teams Pressure Welder Relationship Specialty Start Date End Date Enedina Mcguire NP [address] [place] [address] PCP - General Internal Medicine 10/05/24 Maureen Pantoja, ЮЛИЯ Txp Post Coordinator Transplant Hepatology 10/28/24 documented as of this encounter
--- OUTSIDE RECORDS SUMMARY | 2025-01-20 11:59 | XMS_ITS | Encounter Summary ---
Author Organization [facility] Address [address] [place] [address] Care Team Providers Care Post Tensioning Ironworker Helper Name Role Phone Enedina Mcguire NP Primary Care Provider + [phone] Maureen Pantoja RN Unavailable Unavail able Source [...] release of HIV test results or diagnoses. [id number] Health Encounter Details Date Type Department Care Team (Late st Contact Info) Description 01/15/2025 Chart Note [facility] Liver Transplant at [address] [place] [phone] Marlene Ro MA 01/14 Labs entered from [facility] Social History Tobacco Use Types Packs/Day Years Used Date Smoking Tobacco: Former Cigarettes Smokeless Tobacco: Current Alcohol Use Standard Drinks/Week Comments Yes 0 (1 standard drink = 0.6 oz pure alcohol) History of alcohol abuse, reports no use in 3 week- typically endorses use as 4 glasses of wine a days Utilities Answer Date Recorded In the past 12 months has e [employer], gas, oil, or water [employer] threatened to shut off services in your [...] 10:53 AM EDT HEPATIC FUNCTION PANEL Routine 01/14/2025 10:53 AM EDT TACROLIMUS LEVEL Routine 01/14/2025 10:5 3 AM EDT CREATININE, URINE, RANDOM Routine 01/14/2025 10:53 AM EDT URINALYSIS W/RFL TO MICROSCOPIC Routine 01/14/2025 10:53 AM EDT CBC AND DIFFERENTIAL Routine 01/14/2025 10:53 AM EDT MAGNESIUM Routine 01/14/2025 10:53 AM EDT RENAL FUNCTION PANEL W/O EGFR Routine 01/14/2025 10:53 AM EDT documented in this encounter Results * Tacrolimus level (01/14/2025 10:53 AM EDT) Tacrolimus Lvl 9.6 6 - 15 ng/mL Whole Blood Historical Provider LAB BLOOD ORDERABLES Denisse l Result * (ABNORMAL) Magnesium (01/14/2025 10:53 AM EDT) Magnesium 1.2(A) 1.6 - 2.4 mg/dL Plasma Narrative Resulting Agency Comment [facility] Historical Provider MD LAB BLOOD ORDERABLES Denisse l Result * Renal Function Panel w/o EGFR (01/14/2025 10:53 AM EDT) Glucose 94 BUN 19 CO2 21 13 - 22 mmol/L Creatinine 1.00 Potassium 4.4 Sodium 140 Chloride 109 Phosphorus 4.8 2.5 - 4.9 mg/dL Calcium 9.5 EGFR 82 mg/dL Albumin 4.8 3.5 - 5.0 g/dL Blood Narrative Resulting Agency Comment [facility] Result [employer] Provider LAB BLOOD ORDERABLES Denisse l Result * Creatinine, urine, random (01/14/2025 10:53 AM EDT) Creatinine, Urine 90 Urine Narrative Resulting Agency Comment [facility] Result [employer] Provider URINE ORDERABLES Final Re sult * Urinalysis w/Rfl to Microscopic (01/14/2025 10:53 AM EDT) Glucose, UA Negative Negative Ketones, UA Negative Negative Blood, UA Negative Negative Bilirubin, UA Negative Negative Urobilinogen, UA Normal Normal Protein, UA Negative Negative Nitrite, UA Negative Negative pH, UA 5.5 4.5 - 8.0 Specific [place], UA 1.020 1.005 - 1.030 Clarity, UA Clear Clear Color, UA Yellow Light Yellow, Yellow Urine Narrative Resulting Agency Comment [facility] Result [employer] Provider URINE ORDERABLES Final Re sult * (ABNORMAL) CBC and differential (01/14/2025 10:53 AM EDT) Hemoglobin 12.2(A) 13.5 - 17.5 g/dL Hematocrit [...] 2.0 10^3/mL Blood Narrative Resulting Agency Comment [facility] Provider LAB BLOOD ORDERABLES Denisse l Result * Urine Protein, Tot, Random (w/o Creat) (01/14/2025 10:53 AM EDT) Total Protein, Ur 13.0 Urine Narrative Resulting Agency Comment [facility] Result [employer] Provider URINE ORDERABLES Final Re sult * Hepatic Function Panel (01/14/2025 10:53 AM EDT) Bilirubin, Direct 0.2 Bilirubin, Indirect 0.5 Alkaline Phosphatase 49 ALT 15 AST 24 Total Bilirubin 0.7 Total Protein 6.8 Plasma Narrative Resulting Agency Comment [facility] Result [employer] Provider LAB BLOOD ORDERABLES Denisse l Result documented in this encounter Visit Diagnoses Not on filedocumented in this encounter Additional Health Concerns Infection Onset Date Last Indicated Resolved Time 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
--- OUTSIDE RECORDS SUMMARY | 2025-01-20 11:59 | XMS_ITS | Encounter Summary ---
Author Organization [facility] Address [address] [place] [address] Care Team Providers Care Champion Of Sustainable Design Name Role Phone Enedina Mcguire NP Primary Care Provider [phone] Maureen Pantoja RN Unavailable Unavail able Source [...] release of HIV test results or diagnoses. 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 SW met called and spoke with patient. He reports he has been feeling well since his last visit and reports no further alcohol use since he attended clinic on 01/06. He reports he has restarted Naltrexone, is engaging with his CD counselorand attending more in-person and virtual AA meetings to help support his sobriety. MEREDITH congratulatedpatient on his efforts and encouraged him to continue to utilize these supports. NUBIA Barros, 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
--- OUTSIDE RECORDS SUMMARY | 2025-01-20 11:59 | XMS_ITS ---
Author Organization [facility] Address [address] [place] [address] Care Team Providers Care Field Specialist Name Role Phone Enedina Mcguire NP Primary Care Provider [phone] Maureen Pantoja RN Unavailable Unavail able Transplant Episode Kidney Recipient [facility] ([place], [place]) - [facility] Organ Received: Left Kidney Transplanted on 10/27/2024 Marked as Active Follow-up on 10/27/2024 Kidney CoordinatorJosr Weber RN Phone: N/A Fax: N/A Email: N/A [place] Organ Diagnosis Organ Primary Contributory Kidney Hepatorenal [...] N/A N/A Flaquito Mayen MD Txp Surgeon [phone] N/A Bruno Gonzalez MD Txp Registered Nurse Post Partum [phone] N/A Yovanny Curran MD Referring Physician [phone] N/A Events Post-Transplant Pre-Transplant Admitted: 10/25/2024 Referred: 10/07/2024 Transplanted: 10/27/2024 Evaluation began: Discharged: 11/02/2024 Committee: 10/20/2024 Center waitlisted: 5
--- OUTSIDE RECORDS SUMMARY | 2025-01-20 11:59 | XMS_ITS | Encounter Summary ---
Author Organization [facility] Address [address] [place] [address] Care Team Providers Care Dry Janitor Name Role Phone Enedina Mcguire NP Primary Care Provider [phone] Maureen Pantoja RN Unavailable Unavail able Source [...] release of HIV test results or diagnoses. [id number] Reason for Visit * Reason Comments Results Encounter Details Date Type Department Care Team (Riky st Contact Info) Description 01/16/2025 Telephone [facility] Liver Transplant at [address] [phone] Maureen Pantoja, RN Results Social [...] In the past 12 months has e [employer], gas, oil, or water [employer] threatened to shut off services in your [...] Notes * Maureen Pantoja RN - 01/19/2025 8:37 AM EDT FK 9.6 Urine culture and PEth still pending. Will route to Liver Txp Provider and Kidney Txp Team for further review and recommendations. * Maureen Pantoja RN - 01/16/2025 11:48 AM EDT Lab results from 01/14/25 reviewed. Cr 1.00; BUN 19. LFTs stable. Alk phos 49, AST/ALT . FK pending. Will follow-up. WBC 2.0 (from 1.8) and ANC 600 (from 1,000). Patient is intermediate risk for CMV and on Valcyte prophylaxis until 01/26/25. PEth pending. Current IS: FK 5 mg in AM and 6 mg in PM MMF 500 mg BID Prednisone 5 mg daily documented in this encounter Miscellaneous Notes * Telephone Encounter - Maureen Pantoja RN - 01/19/2025 9:[address] Juarez: Mag is still low. Plz confirm if he is taking slo mag, and what dose. Message to patient to determine if he is taking and if so, what dose/frequency. 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
--- OUTSIDE RECORDS SUMMARY | 2025-01-20 11:59 | XMS_ITS | Encounter Summary ---
Author Organization [facility] Address [address] [place] [address] Care Team Providers Care Biostatistics Director Name Role Phone Enedina Mcgiure NP Primary Care Provider [phone] Maureen Pantoja RN Unavailable Unavail able Source [...] release of HIV test results or diagnoses. [id number] Health Encounter Details Date Type Department Care Team (Late st Contact Info) Description 12/31/2024 Chart Note [facility] Liver Transplant at [address] [place] [phone] Marlnee Ro MA 12/31 Labs entered from [facility] Social History Tobacco Use Types Packs/Day Years Used Date Smoking Tobacco: Former Cigarettes Smokeless Tobacco: Current Alcohol Use Standard Drinks/Week Comments Yes 0 (1 standard drink = 0.6 oz pure alcohol) History of alcohol abuse, reports no use in 3 week- typically endorses use as 4 glasses of wine a days Utilities Answer Date Recorded In the past 12 months has [employer], gas, oil, or water [employer] threatened to shut off services in your [...] 11:59 AM EDT 12/31 Labs entered from [facility] documented in this encounter Plan [...] Virus Quant PCR PL Negative Plasma Result [facility] LAB BLOOD ORDERABLES Denisse l Result * (ABNORMAL) Magnesium (12/31/2024 9:41 AM EDT) Magnesium 1.2(A) 1.6 - 2.4 mg/dL Plasma Narrative Resulting Agency Comment [facility] Result [facility] LAB BLOOD ORDERABLES Denisse l Result * Hepatic Function Panel (12/31/2024 9:41 AM EDT) Bilirubin, Direct 0.1 Bilirubin, Indirect 0.4 Alkaline Phosphatase 66 ALT 14 AST 22 Total Bilirubin 0.5 Total Protein 6.4 Plasma Narrative Resulting Agency Comment [facility] Result [facility] LAB BLOOD ORDERABLES Denisse [...] Resulting Agency Comment [facility] Result [facility] LAB BLOOD ORDERABLES Denisse l Result * Creatinine, urine, random (12/31/2024 9:41 AM EDT) Creatinine, Urine 57 Urine Narrative Resulting Agency Comment [facility] Provider Result Type Result [facility] URINE ORDERABLES Final Re sult * Urinalysis w/Rfl to Microscopic (12/31/2024 9:41 AM EDT) Glucose, UA Negative Negative Ketones, UA Negative Negative Blood, UA Negative Negative Bilirubin, UA Negative Negative Urobilinogen, UA Normal Normal Protein, UA Negative Negative pH, UA 5.5 4.5 - 8.0 Specific [place], UA 1.025 1.005 - 1.030 Clarity, UA Clear Clear Color, UA Yellow Light Yellow, Yellow Urine Narrative Resulting Agency Comment [facility] Provider URINE ORDERABLES Final Re [...] 3.0 10^3/mL Blood Narrative Resulting Agency Comment [facility] Result [facility] Provider LAB BLOOD ORDERABLES Denisse l Result * Urine Protein, Tot, Random (w/o Creat) (12/31/2024 9:41 AM EDT) Total Protein, Ur 17.0 Urine Narrative Resulting Agency Comment [facility] Result [facility] Historical Provider URINE ORDERABLES Final Re sult documented in this encounter Visit Diagnoses Not on filedocumented in this encounter Additional Health Concerns Infection Onset Date Last Indicated Resolved Time 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
--- OUTSIDE RECORDS SUMMARY | 2025-01-20 11:59 | XMS_ITS | Encounter Summary ---
Author Organization [facility] Address [address] [place] [address] Care Team Providers Care Real Estate Legal Assistant Name Role Phone Enedina Mcguire NP Primary Care Provider + [phone] Maureen Pantoja RN Unavailable Unavail able Source [...] release of HIV test results or diagnoses. [id number] Health Encounter Details Date Type Department Care Team (Late st Contact Info) Description 01/15/2025 Telephone [facility] Liver Transplant at [address] [phone] Marlene Ro MA Social History [...] Recorded In the past 12 months has [employer], gas, oil, or water [employer] threatened to shut off services in your [...] Progress Notes * Marlene Ro MA - 01/15/2025 12:16 PM EDT Mainmilanachristian returned call. Their was enough urine collection so Peth is being added on. She states shehad a conversation with registration and a verbal order was taken for a Peth to be added to standing list. * Marlene Ro MA - 01/15/2025 11:57 AM EDT I spoke with Gavin at [facility] about the phosphatidylethanol order tied to the patient???s registration. Although the order was found, it wasn???t sent to phlebotomy, so no test was done on 01/14. Due to this recurring issue, I contacted the supervisor frame sample and pattern, Gladys. We agreed I would notify the lab directly of one-time and standing orders and fax them at [phone] to prevent future errors. Gladys is also checking if there is enough urine from 01/14 to add the test and will update me by phone. All immediate needs have been addressed. 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
[2025-01-20 12:07] LABS: Microscopic, Urine URINE MICROSCOPIC (MICROSCOPIC)
[2025-01-20 12:48] LABS: Hematocrit 35.9 % (42.0-52.0); Hemoglobin 12.5 g/dL (14.1-18.0); Immature Granulocytes % 6.4 %; Mean Corpuscular HGB Conc 34.8 g/dL (31.8-35.4); Mean Corpuscular Hemoglobin 32.3 pg (27.0-31.2); Mean Corpuscular Volume 92.8 fl (80-94); Nucleated Red Blood Cells % 0 %; Platelet Count 116 K/mm3 (142-424); Red Blood Count 3.87 M/mm3 (4.60-6.20); Red Cell Distribution Width-SD 47.3 fL; White Blood Count 2.2 K/mm3 (4.8-10.8)
[2025-01-20 12:59] LABS: Albumin Level 4.9 g/dl (3.5-5.0); Bilirubin,Unconjugated 0.6 mg/dL (0.0-1.1); Blood Urea Nitrogen 14 mg/dl (9-20); Calcium 10.2 mg/dl (8.4-10.2); Carbon Dioxide 23 mmol/L (22.0-30.0); Creatinine,Serum 1.10 mg/dl (0.66-1.25); Estimated Glomerular Filt Rate 74 ml/min (>60); GFR (African American) 89 ML/MIN (>60); Glucose 101 mg/dl (74-100); Magnesium 1.1 mg/dl (1.6-2.3); Phosphorous 4.2 mg/dl (2.5-4.5); Potassium 3.8 mmoL/L (3.5-5.1); Sodium 141 mmol/L (136-145); Total Protein,Serum 7.1 g/dl (6.3-8.2)
[2025-01-20 13:05] LABS: Bilirubin,Urine Negative (Negative); Color,Urine YELLOW (Yellow); Glucose,Urine (UA) Negative (Negative); Ketones,Urine Negative (Negative); Leukocyte Esterase,Urine Negative (Negative); PH,Urine 5.5 (5.0-8.5); Protein,Urine TRACE (Negative); Specific Gravity, Urine 1.020 (1.005-1.030); Urobilinogen,Urine 0.2 EU/dl (0.2)
[2025-01-20 13:24] LABS: Alanine Aminotransferase 20 U/L (12-78); Alkaline Phosphatase 52 U/L (38-126); Anion Gap 15.8 mEq/L (5-15); Aspartate Amino Transferase 28 U/L (17-59); Bilirubin,Direct 0.2 mg/dl (0.0-0.4); Bilirubin,Indirect 0.6 mg/dL (0.0-0.9); Bilirubin,Total 0.8 mg/dl (0.2-1.3); Chloride 106 mmol/L (98-107)
[2025-01-20 13:27] LABS: WBC,Urine Occasional #/hpf (0-3)
[2025-01-20 13:51] LABS: Total Cells Counted 100
[2025-01-20 13:56] LABS: RBC Morphology Normal
[2025-01-23 17:12] LABS: Tacrolimus (FK506), Blood 11.3 ng/mL (5.0-20.0)
== END 2025-01-20 23:59 | disposition home or self-care (01) ==
LOC: LAB 11:50
PROVIDERS: PCP Nurse Practitioner Family; Visit Provider Surgery
DX: D84.9 Immunodeficiency, unspecified (principal); K74.60 Unspecified cirrhosis of liver; R18.8 Other ascites; Z94.4 Liver transplant status; Z94.0 Kidney transplant status; F10.90 Alcohol use, unspecified, uncomplicated; Z79.60 Long term (current) use of unspecified immunomodulators and immunosuppressants
CPT/HCPCS: 36415; 80069; 80076; 80197; 81001; 82570; 83735; 84156; 85007; 85025; 87086; 87088; 87186

== ENCOUNTER 2025-02-03 09:31 | Outpatient (CLI) | payer OTHER, SELFPAY ==
--- OUTSIDE RECORDS SUMMARY | 2024-11-04 08:40 | XMS_ITS | Encounter Summary ---
Author Organization [facility] Address [address] [place] [address] Care Team Providers Care Nail Cutter Name Role Phone Enedina Mcguire NP Primary Care Provider + [phone] Maureen Pantoja RN Unavailable Unavail able Source [...] release of HIV test results or diagnoses. [id number] Reason for Visit * Reason Comments Liver Transplant Follow-up Encounter Details Date Type Department Care Team (Late st Contact Info) Description 11/04/2024 8:40 AM EDT Office Visit [facility] Liver Transplant at [address] [address] Cosmo Pacheco MD [address] [place] [address] Liver/[place] [address] Liver transplant recipient (CMS-HCC) (Primary [...] the past 12 months has th e [employer], gas, oil, or water company threatened to [...] living in a fdc (including now)? No 10/29/2024 Yearly Questionnaire Answer Date Record ed Do you need any assistance w ith obtaining housing, meals, medication, transportation or medical equipment? No 09/02 Assistance needed for: Not on file 04/22/202 5 Yearly Questionnaire Answer Date Record ed [...] recurrence - HCV/HBV : donor acute risk, KIAAN negative - ID prophylaxis/surveillance: - CMV R+, will need 3 months valcyte - 01/26/25 - will need 6 months PJP proph, ideally with Bactrim SS daily until 9/15/25 - fluconazole - 1 month- stop date [...] Nutrition: patient continues close f/u w/ transplant supervisor gluing. - Bone health: Vit D level to be drawn ~POD#90. - Labs: Labs (CBC w/ diff, renal panel, liver panel, tacro level) twice a week. Lipid panel, [id number] Vit D level to be drawn at [...] management for this patient. Cosmo Pacheco MD Churn Operator Margarine of Transplant Surgery [phone] (m) [1] Allergies Allergen Reactions Adhesive Itching [...] 11/04/2024 8:[address] Juarez, [place] for patient to stop Linezolid on 11/09/24. She will notify patient. documented in this encounter Plan of Treatment Not on file documented as of this encounter Visit Diagnoses Diagnosis Liver transplant recipient ([facility]-HCC)- Primary Alcoholic cirrhosis of liver with ascites ([facility]-HCC) Kidney transplant recipient Acute kidney injury superimposed on CKD ([facility]-HCC) CKD (chronic kidney disease) stage 4, GFR 15-29 ml/min ([facility]-HCC) Chronic kidney disease, Stage IV (severe) Immunosuppressive management encounter following liver transplant ([facility]-HCC) Abdominal pain, unspecified abdominal location documented in this encounter Additional Health Concerns Infection Onset Date Last Indicated Resolved Time 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, VRE- urine 10/31/2024 11/04/2024 01/28/2025 7:59 AM E DT Assessment Noted Time PHQ-9 Depression Total Score: 17 025 11:00 AM EDT documented as of this encounter Care Teams Nail Cutter Relationship Specialty Start Date End Date Enedina Mcguire NP [address] [place] [address] PCP - General Internal Medicine 10/05/24 Maureen Pantoja, ЮЛИЯ Txp Post Coordinator Transplant Hepatology 10/28/24 documented as of this encounter
--- OUTSIDE RECORDS SUMMARY | 2024-12-04 14:15 | XMS_ITS | Encounter Summary ---
Author Organization [facility] Address [address] [place] [address] Care Team Providers Care Calender Machine Operator Name Role Phone Enedina Mcguire APRN Primary Care Provider + Reason for Visit * Reason Comments Follow-up Neck Pain Med Management Encounter Details Date Type Department Care Team (Late st Contact Info) Description 12/04/2024 2:15 PM EDT Office Visit [facility] PAIN MANAGEMENT [address] [address] Dawn Christie PA-C [address] [facility] [address] [place] [address] Cervical radiculopathy (Primary Dx); Long-term use of high-risk medication; Cervical pain (neck); Cervical spondylosis without myelopathy; Therapeutic drug monitoring; Chronic pain syndrome Social History Tobacco Use Types Packs/Day Years [...] Recorded In the past 12 months has [employer], gas, oil, or water [employer] threatened to shut off services in [...] Brief Depression Severity Measure Score 0 10/02/2022 [facility] - [...] GED or equivalent No 07/09/2024 Preferred Language Emirati 07/09/2024 PHQ-2 Answer Date Recorded Patient Health Questionnaire-2 Score 0 12/04/2024 Sex and Gender Information Value Date Recorded [...] - Inhaled Oxygen Concentration - - Weight 98.4 kg (217 lb) 12/04/2024 2:06 PM EDT Height 193 cm (6' 3.98 ) 12/04/2024 2:06 PM EDT Body Mass Index 26.43 12/04/2024 2:06 PM EDT documented in this encounter Functional Status documented as of this encounter Progress Notes * Dawn Christie PA-C - 12/04/2024 2:15 PM EDTAddended by: DAWN CAI on: 12/05/2024 12:56 PM Modules accepted: Orders * Dawn Christie PA-C - 12/04/2024 2:15 PM EDT Referring Physician: Enedina Mcguire, ROLL MECHANIC [address] [place] [address] Primary Physician: Enedina Mcguire APRN CHIEF COMPLAINT or REASON FOR VISIT: Follow-up, Neck Pain, and Med Management Initial history of present illness on 08/06/2023: [...] Interval history: Patient returns to clinic today for medication management. He has had multiple changes in his past medical history within the past couple of months. He has had kidney and liver transplant at [facility] since his last office visit. Additionally, he has been started on Dilaudid 2 mg every 6 hours and gabapentin 100 mg 3 times daily by one of his transplant providers at the [facility]. He was previously prescribed tramadol 50 mg 1 to 2 tablets daily as needed. Patient reports he is following up weekly with his transplant providers at the [facility]. Continues to have some chronic neck pain. He has been receiving weekly prescriptions of Dilaudid mg for the last 3 weeks but states he does not believe he will be receiving any more, and is not currently taking the medication.. Continues to take tramadol with relief. He does tolerate this medication without side effect and it does provide him with some pain relief. He reports his transplant providers were okay with tramadol prescription. He is fully recovering from his surgeries. Interventions: 08/23/2023: LEENA with 50% relief for 2 weeks, 30-40% relief for multiple months Objective Pain Scoring: BRIEF PAIN INVENTORY: Total score: Pain Score 12/04/24 1406 PainSc: 4 PainLoc: Neck Comment: back PHQ-2: PHQ-9: Opioid Risk Tool: Review of [...] Surgeon: Presley Montes De Oca MD; Location: [facility]; Service: Gastroenterology; Laterality: N/A; ENDOSCOPY N/A 07/29/2022 Procedure: ESOPHAGOGASTRODUODENOSCOPY; Surgeon: Presley Montes De Oca MD; Location: [facility]; Service: Gastroenterology; Laterality: N/A; WITH APC LIVER TRANSPLANTATION 10/2024 NECK SURGERY 11/22/2000 C 4/5 corpectomy c3-6 ant fusion SPINAL FUSION 2000 c3-6 acdf and c4-5 corpectomy; Dr. Gardner, Dr. Mcelroy TRANSPLANTATION RENAL Right 10/2024 Family History Family History Problem Relation Age [...] Yes Partners: Female Medications: Current Outpatient Medications: FLUoxetine (PROzac) 20 MG capsule, Take 1 capsule by mouth Daily., Disp: , Rfl: HYDROmorphone (DILAUDID) 2 MG tablet, Take 1 tablet by mouth Every 6 (Six) Hours., Disp: , Rfl: levothyroxine (SYNTHROID, LEVOTHROID) 75 MCG tablet, Take 1 tablet by mouth Daily., Disp: 30 tablet, Rfl: 0 loratadine (CLARITIN) 10 MG tablet, Take 1 tablet by mouth., Disp: , Rfl: methocarbamol (ROBAXIN) 500 MG tablet, Take 1 tablet by mouth 3 (Three) Times a Day., Disp: , Rfl: midodrine (PROAMATINE) 10 MG tablet, Take 1 tablet by mouth 3 (Three) Times a Day., Disp: , Rfl: mycophenolate (CELLCEPT) 250 MG capsule, Take 2 capsules by mouth 2 (Two) Times a Day., Disp: , Rfl: pantoprazole (PROTONIX) 40 MG EC tablet, Take 1 tablet by mouth Daily., Disp: 30 tablet, Rfl: 0 riFAXIMin (Xifaxan) 550 MG tablet, Take 1 tablet by mouth Every 12 (Twelve) Hours., Disp: 180 tablet, Rfl: 0 tacrolimus (PROGRAF) 1 MG capsule, Take by mouth. Take 5 capsules (5 mg total) by mouth every morning AND 6 capsules (6 mg total) at bedtime. Use as directed. Indications: Prevention of Kidney Transplant Rejection, Prevention of Liver Transplant Rejection., Disp: , Rfl: traMADol (ULTRAM) 50 MG tablet, Take 1 tablet by mouth Every 12 (Twelve) Hours As Needed for Moderate Pain., Disp: 50 tablet, Rfl: 0 ursodiol (ACTIGALL) 300 MG capsule, Take 1 capsule by mouth., Disp: , Rfl: Bempedoic Acid-Ezetimibe (Nexlizet) 180-10 MG tablet, Take 1 tablet by mouth Daily. (Patient not taking: Reported on 12/04/2024), Disp: , Rfl: ciprofloxacin (CIPRO) 500 MG tablet, Take 1 tablet by mouth Daily. (Patient not taking: Reported on12/04/2024), Disp: , Rfl: folic acid (FOLVITE) 1 MG tablet, Take 1 tablet by mouth Daily. (Patient not taking: Reported on 12/04/2024), Disp: , Rfl: lactulose (CHRONULAC) 10 GM/15ML solution solution (encephalopathy), Take 30 mL by mouth 3 (Three) Times a Day. (Patient not taking: Reported on 12/04/2024), Disp: , Rfl: lactulose (CHRONULAC) 10 GM/15ML solution, Take 30 mL by mouth 2 (Two) Times a Day. (Patient not taking: Reported on 12/04/2024), Disp: , Rfl: lidocaine (LIDODERM) 5 %, Place 1 patch on the skin as directed by provider Daily. (Patient not taking: Reported on 12/04/2024), Disp: , Rfl: multivitamin with minerals tablet tablet, Take 1 tablet by mouth Daily. (Patient not taking: Reported on 12/04/2024), Disp: , Rfl: naloxone (NARCAN) 4 MG/0.1ML nasal spray, Administer 1 spray into the nostril(s) as directed by provider. (Patient not taking: Reported on 12/04/2024), Disp: , Rfl: potassium chloride ER (K-TAB) 20 MEQ tablet controlled-release ER tablet, Take 2 tablets by mouth Daily. (Patient not taking: Reported on 12/04/2024), Disp: , Rfl: [START ON 12/05/2024] predniSONE (DELTASONE) 5 MG tablet, Take 2 tablets by mouth Daily., Disp: , Rfl: thiamine (VITAMIN B1) 100 MG tablet, Take 1 tablet by mouth Daily. (Patient not taking: Reported on12/04/2024), Disp: , Rfl: topiramate (TOPAMAX) 25 MG tablet, Take by mouth., Disp: , Rfl: torsemide (DEMADEX) 20 MG tablet, , Disp: , Rfl: valGANciclovir (VALCYTE) 450 MG tablet, Take 1 tablet by mouth Daily., Disp: , Rfl: zinc sulfate (ZINCATE) 220 (50 Zn) MG capsule, Take 1 capsule by mouth Daily. (Patient not taking: Reported on 12/04/2024), Disp: , Rfl: Physical Exam: Vitals: 12/04/24 1406 Weight: 98.4 kg (217 lb) Height: 193 cm (75.98 ) PainSc: 4 PainLoc: Neck Comment: back General: Alert and oriented, No acute distress. [...] cirrhosis 10/22/2024: Will reassume responsibility of tramadol. 12/04/2024: Patient now s/p liver and kidney transplant been taking Dilaudid 2 mg every 6 hours prescribed by transplant team. 1. Cervical radiculopathy 2. Long-term use of high-risk medication 3. Cervical pain (neck) 4. Cervical spondylosis without myelopathy 5. Therapeutic drug monitoring 6. Chronic pain syndrome PLAN: 1. Medication Recommendations: - Will continue to decrease tramadol to 40 pills/month. Currently, patient reports he is no longer taking benzodiazepines. Last Xanax prescription filled on 06/22/2024; patient is no longer taking thismedication nor is receiving refills of this medication -Tramadol 50 mg twice daily as needed, 40 pills, #0 refills - ORT performed in office demonstrating low risk for misuse; he does have a personal history of alcohol abuse. - Has recently received Dilaudid 2 mg 28 pills every 6 hours from transplant providers at the [facility] for postoperative pain for the last 3 weeks but reports he is no longer taking this medication for the pain. As part of this patient's treatment plan, [...] further refills. Kristofer was reviewed and compliant. -Addendum 12/05/2024: Most recent urine drug screen did reveal positive opiate which is consistent with tramadol prescription as well as recent Dilaudid prescription which was provided from his transplant team at the [facility]. Additionally, this did reveal positive THC. Tramadol is a controlled substance and stated [place] and any use of illicit drugs/substances such as THC is a violation of this controlled substance agreement. We will taper his tramadol prescription. Previous prescription of 40 pills was canceled at his pharmacy. Will send tramadol 50 mg daily as needed, 30 pills, to continue with taper of this medication. Will be unable to provide additional refills of tramadol given noncompliant UDS. Personally spoke to patient who voiced understanding. 2. Physical Therapy: Continue HEP 3. Psychological: defer 4. Complementary and alternative (CAM) Therapies: 5. Labs/Diagnostic studies: Pending compliance UDS 6. Imagin. Interventions: Poor candidate for interventions given comorbidities. 8. Referrals: None indicated 9. Records: Kristofer reviewed; [facility] notes reviewed 10. Lifestyle goals: Follow-up 1 month for medication management [facility] Pain Management Dawn Christie PA-C documented in this encounter Plan of Treatment Upcoming Encounters Date Type Department Care Team (Late st Contact Info) Description 04/02/2025 2:15 PM EST Office Visit [facility] [address] [facility] [address] [place] [address] Dawn Christie PA-C [address] [facility] [address] [place] [address] documented as of this encounter Results * (ABNORMAL) Urine Drug Screen - Urine, Clean Catch (12/04/2024 2:50 PM EDT) THC, Screen, Urine Positive(A) Negative 12/04 8:32 PM EDT [facility] Phencyclidine (PCP), Urine Negative Negative 12/04/2024 8:32 PM EDT [facility] Cocaine Screen, Urine Negative Negative 12/04/2024 8:32 PM EDT [facility] Methamphetamine, Ur Negative Negative 12/04/2024 8:32 PM EDT [facility] Opiate Screen Positive(A) Negative 12/04/2024 8:32 PM EDT [facility] Amphetamine Screen, Urine Negative Negative 12/04/2024 8:32 PM EDT [facility] Benzodiazepine Screen, Urine Negative Negative 12/04/2024 8:32 PM EDT [facility] Tricyclic Antidepressants Screen Negative Negative 12/04/2024 8:32 PM EDT [facility] Methadone Screen, Urine Negative Negative 12/04/2024 8:32 PM EDT [facility] Barbiturates Screen, Urine Negative Negative 12/04/2024 8:32 PM EDT [facility] Oxycodone Screen, Urine Negative Negative 12/04/2024 8:32 PM EDT [facility] Buprenorphine, Screen, Urine Negative Negative 12/04/2024 8:32 PM EDT [facility] Urine Urine specimen obtained by clean catch procedure / Unknown Collection / Unknown 12/04/2024 2:50 PM EDT 12/04/2024 2:54 PM EDT Narrative [facility] - 12/04/2024 8:32 PM EDT Cutoff For Drugs Screened: Amphetamines 500 ng/ml Barbiturates 200 ng/ml Benzodiazepines 150 ng/ml Cocaine 150 ng/ml Methadone 200 ng/ml Opiates 100 ng/ml Phencyclidine 25 ng/ml THC 50 ng/ml Methamphetamine 500 ng/ml Tricyclic Antidepressants 300 ng/ml Oxycodone 100 ng/ml Buprenorphine 10 ng/ml The normal value for all drugs tested is negative. This report includes unconfirmed screening results, with the cutoff values listed, to be used for medical treatment purposes only. Unconfirmed results must not be used for non-medical purposes such as employment or legal testing. Clinical consideration should be applied to any drug of abuse test, particularly when unconfirmed results are used. us Dawn Otilio Christie PA-C URINE ORDERABLES Final R esult [facility]
[address] [phone] documented in this encounter Visit Diagnoses Diagnosis Cervical radiculopathy- Primary Brachial neuritis or radiculitis nos Long-term use of high-risk medication Cervical pain (neck) Cervicalgia Cervical spondylosis without myelopathy Therapeutic drug monitoring Encounter for therapeutic drug monitoring Chronic pain syndrome documented in this encounter Additional Health Concerns Assessment Noted Time PHQ-2 Depression Total Score: 1 12/31/19 24 3:25 PM EDT documented as of this encounter Care Teams Calender Machine Operator Relationship Specialty Start Date End Date Enedina Mcguire APRN [address] [place] [address] PCP - General Nurse Practitioner 10/27/24 documented as of this encounter
--- OUTSIDE RECORDS SUMMARY | 2024-12-09 09:50 | XMS_ITS | Encounter Summary ---
Author Organization [facility] Address [address] [place] [address] Care Team Providers Care Cuff Turner Name Role Phone Enedina Mcguire NP Primary Care Provider + [phone] Maureen Pantoja RN Unavailable Unavail able Source [...] release of HIV test results or diagnoses. [id number] Health Encounter Details Date Type Department Care Team (Late st Contact Info) Description 12/09/2024 9:50 AM EDT Office Visit [facility] Liver Transplant at [place] [id number] [place] [address] Leisa Juarez MD [address] [place] [address] 2nd [place] [address] Kidney transplant recipient (Primary Dx); Immunosuppressive management encounter following liver transplant ([facility]); Hypomagnesemia; S/P liver transplant ([facility]); Hypertension, unspecified type; Hyperparathyroidism ([facility]) Social History Tobacco Use Types Packs/Day [...] as of this encounter Progress Notes * Caron Santos CNP - 12/09/2024 9:50 AM EDT Name: Julien Anderson Date of : 1985 (39 y.o.) Date of Service: 11/25/2024 Subjective History of Present Illness: HPI Julien Anderson is a 39 y.o. [...] Chief Complaint: Follow up after SLK. POD #43/44 History of Present Illness Julien Anderson is a 39 year old male with a history of kidney transplant who presents for follow-up after SLK. Doing well at home. No intercurrent events since last visit. BP at home 120-130/80-90 Weight stable 210-215 lbs. Eating and drinking well. Review of Systems Constitutional: Negative for chills and fever. Respiratory: Negative for shortness of breath. Cardiovascular: Negative for chest pain and leg swelling. Gastrointestinal: Positive for diarrhea (1-2 loose BMs/day). Negative for nausea and vomiting. Genitourinary: Positive for dysuria (with start of stream). Negative for difficulty urinating. Decreased flow since stent removed Neurological: Negative for dizziness and headaches. All other systems reviewed and are negative. Histories: Past Medical History: Past Medical History: Diagnosis Date Alcoholic cirrhosis of liver (CMS-HCC) Esophageal varices (CMS-HCC) Hepatorenal syndrome ([facility]) Hypertension Other hyperlipidemia 07/26/2024 Renal cell carcinoma (CMS-HCC) Thrombocytopenia ([facility]) Thyroid disease Surgical History: Past Surgical [...] OR; Service: Transplant; Laterality: N/A; Family History: History reviewed. No pertinent family [...] No Physical Activity: Unknown (07/14/2024) Received from [facility] Exercise Vital Sign Days of Exercise per Week: Patient unable to answer Minutes of Exercise per Session: Not on file Stress: Patient Unable To Answer (07/14/2024) Received from [facility] [place] of Occupational Health - Occupational Stress Questionnaire Feeling of Stress : Patient unable to answer Social Connections: Patient Unable To Answer (07/14/2024) Received from [facility] Social Connection and Isolation Panel [NHANES] [...] hours. alcohol swabs PadM Use as instructed. ergocalciferol (ERGOCALCIFEROL) 1,250 mcg (50,000 unit) capsule [...] times a day. naloxone (NARCAN) 4 mg/actuation [place] Apply 1 spray in one nostril if needed. Call 911. May repeat dose in other nostril if no response in 3 minutes. naltrexone (DEPADE) 50 mg tablet Take 1 tablet (50 mg total) by mouth daily. NIFEdipine (PROCARDIA-XL) 30 MG (OSM) 24 hr tablet Take 1 tablet (30 mg total) by mouth daily. polyethylene glycol (GLYCOLAX) 17 gram/dose powder Mix one capful (17 grams) in 8 ounces of liquid and drink by mouth daily as needed (Constipation). predniSONE (DELTASONE) 5 MG tablet Take 2 [...] 2 times a day. Use as directed Indications: Prevention of Kidney Transplant Rejection, Prevention of Liver Transplant Rejection valGANciclovir (VALCYTE) 450 mg tablet Take 2 tablets (900 mg total) by mouth daily. No current facility-administered medications for this visit. Allergies: Adhesive and Duloxetine [place]/CSA Target: Latest Ref Rng & Units 11/25/2024 11/27/2024 12/02/2024 12/04/2024 12/08/2024 [place]/Creatinine Level Tacrolimus by Immunoassay (USE PT. THRESHOLDS) 6 - 15 ng/mL 9.9 7.5 Creatinine (USE PT. THRESHOLDS) 0.6 - 1.3 mg/dL 1.59 1.10 0.80 0.90 0.90 Currently Enrolled Research Studies: Objective Physical Examination: There were no vitals taken for this visit. Physical Exam Vitals reviewed. Constitutional: General: He is not in acute distress. HENT: Head: Normocephalic and atraumatic. Eyes: General: No scleral icterus. Extraocular Movements: Extraocular movements intact. Cardiovascular: Rate and Rhythm: Normal rate and regular rhythm. Heart sounds: No murmur heard. Pulmonary: Effort: Pulmonary effort is normal. No respiratory distress. Breath sounds: Normal breath sounds. Abdominal: General: Bowel sounds are normal. Palpations: Abdomen is soft. Musculoskeletal: Right lower leg: No edema. Left lower leg: No edema. Skin: General: Skin is warm and dry. Coloration: Skin is not jaundiced. Neurological: Mental Status: He is alert and oriented to person, place, and time. Psychiatric: Mood and Affect: Mood normal. Behavior: Behavior normal. Review of Lab Results: Renal: Lab Results Component Value Date NA 140 12/08/2024 K 3.9 12/08/2024 CL 105 12/08/2024 CO2 28 (A) 12/08/2024 ANIONGAP 12 11/25/2024 BUN 21 12/08/2024 CREATININE 0.90 12/08/2024 GLUCOSE 83 12/08/2024 CALCIUM 9.4 12/08/2024 PHOS 4.0 12/08/2024 MG 1.3 (A) 12/08/2024 Hepatic: Lab Results Component Value Date ALKPHOS 80 12/08/2024 AST 16 12/08/2024 ALT 14 12/08/2024 ALBUMIN 3.9 12/08/2024 LABPROT 6.3 09/16/2024 BILIDIRECT 0.1 12/08/2024 BILITOT 0.3 12/08/2024 BILIINDIRECT 0.2 12/08/2024 LIPASE 40 09/04/2024 Lipids: Lab Results Component Value Date CHOLTOT <25 10/07/2024 TRIG 30 10/07/2024 HDL 4 (L) 10/07/2024 LDL See Note 10/07/2024 CBC: Lab Results Component Value Date WBC 5.1 12/08/2024 RBC 3.32 (A) 12/08/2024 HGB 10.3 (A) 12/08/2024 HCT 31.2 (A) 12/08/2024 MCV 94.0 12/08/2024 MCH 31.0 12/08/2024 MCHC 33.0 12/08/2024 RDW 16.8 (A) 12/08/2024 MPV 6.9 (L) 11/25/2024 PLT 147 12/08/2024 Parathyroid: Lab Results Component Value Date PTH 36.0 10/25/2024 WMCO89V 7.1 (L) 10/08/2024 Hemoglobin A1C: Lab Results [...] Urine: Lab Results Component Value Date LABCREAU 65 12/08/2024 LABPROT 6.3 09/16/2024 PROTEINUR 11.0 12/08/2024 LABURIN No Growth 12/02/2024 UTPCR 0.39 11/11/2024 Others: Lab Results Component [...] min. Virtual and flow crossmatches negative. - OLT 10/26/24. DDKT, washout, and bile duct reconstruction 10/27/24 AlloGraft Function: Cr reviewed. Stable, 0.90 today. Ureteral stent removed 11/25/24 UA unremarkable 12/08/24 UPCr 0.17 IS: Steroid taper per protocol (currently on 10 mg daily), MMF 500 mg BID, and tacrolimus 5/6 mg am/pm. Immunosuppression is being managed in conjunction with liver transplant team. 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 Recipient treated with linezolidfor 7 days. CMV ppx: Valcyte 450 mg daily PJP ppx: Bactrim Fungal ppx: Fluconazole - complete Hypertension: Nifedipine 30 mg daily Blood pressure on target per home log Office reading 130/91 Volume status: Clinically euvolemic BK Screening: Per protocol (POD# 30, 60, 90, 180, 270, 365) Hematology: CBC reviewed, counts stable. Mineral Bone Disease: Hypomagnesemia : Mag reviewed, 1.3. Continue Slow Mag 143 mg TID. Metabolic acidosis: Renal panel reviewed. Bicarb 28. On PO Bicarb 650 mg BID Health Maintenance: Deferred at this time in setting of recent transplant Changes this visit: - Renal function stable. - Stop Bicarb - Recommend increasing Valcyte to 900 mg daily (renal dosing) - Check BK PCR with next labs. - Continue Slow Mag and increase magnesium in diet RTC: With next liver appt. Discussed with Dr. Juarez. Lauren Santos, SAMSON, TRAUMA SURGEON, MEDICATION TECHNICIAN- Transplant Nephrology [phone] Preferred contact: secure chat The HPI, ROS, physical exam, test results, and assessment & plan were reviewed and copied forward (with edits) from a note written by Jessica Colon on 11/25/24. I have reviewed and updated the history, physical exam, data, assessment, and plan of the note so that it reflects my evaluation and m anagement of the patient. Cosigned by Leisa Juarez MD at 12/10/2024 1:25 PM EDT Associated attestation - Leisa Juarez MD - 12/10/2024 1:25 PM EDT I saw and examined the patient 12/09/24, and discussed the case with the SAWYER. I agree with the assessment and plan as outlined in the SAWYER's note except as noted below. Patient is followed for monitoring of drug toxicity for being on immunosuppression with tacrolimus trough level, complete blood count, and basic metabolic profile POD 45 fom SLK. Excellent renal allograft function. Increase valcyte to 900 mg daily BK Monitoring. Check with next set of labs. IS: Per hepatology documented in this encounter Plan of Treatment Not on file documented as of this encounter Visit Diagnoses Diagnosis Kidney transplant recipient- Primary Immunosuppressive management encounter following liver transplant ([facility]) Hypomagnesemia Disorders of magnesium metabolism S/P liver transplant ([facility]) Hypertension, unspecified type Hyperparathyroidism ([facility]) Hyperparathyroidism, unspecified documented in this encounter Additional Health Concerns Infection Onset Date Last Indicated Resolved Time 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
--- OUTSIDE RECORDS SUMMARY | 2024-12-09 10:20 | XMS_ITS | Encounter Summary ---
Author Organization [facility] Address [address] [place] [address] Care Team Providers Care Quality Assurance Coach Name Role Phone Enedina Mcguire NP Primary Care Provider + [phone] Maureen Pantoja RN Unavailable Unavail able Source [...] release of HIV test results or diagnoses. [id number] Reason for Visit * Reason Comments Liver Transplant Follow-up Encounter Details Date Type Department Care Team (Late st Contact Info) Description 12/09/2024 10:20 AM EDT Office Visit [facility] Liver Transplant at [address] [address] Harvey Domínguez III, MD [address] [place] [address] Encounter for therapeutic drug monitoring (Primary [...] the past 12 months has th e [employer], [employer], oil, or water company threatened to shut [...] patient continues close f/u w/ transplant manager hardware. - Bone health: Vit D level to [...] of this encounter Care Teams Quality Assurance Coach Relationship Specialty Start Date End Date Enedina Mcguire NP [address] [place] [address] PCP - General Internal Medicine 10/05/24 Maureen Pantoja RN Txp Post Coordinator Transplant Hepatology 10/28/24 documented as of this encounter
--- OUTSIDE RECORDS SUMMARY | 2024-12-09 11:45 | XMS_ITS | Encounter Summary ---
Author Organization [facility] Address [address] [place] [address]347 Care Team Providers Care Diabetes Solutions Specialist Name Role Phone Enedina Mcguire NP Primary Care Provider + [phone] Maureen Pantoja RN Unavailable Unavail able Source [...] release of HIV test results or diagnoses. [id number] Health Encounter Details Date Type Department Care Team (Late st Contact Info) Description 12/09/2024 11:45 AM EDT Office Visit [facility] Psychiatry Transplant at [place] [address] [phone] Rebekah Linares, [address] [place] [address] Alcohol use disorder (Primary Dx) [...] Recorded In the past 12 months has [employer], gas, oil, or water [employer] threatened to shut off services in your [...] no psychomotor abnormalities Cognition: short term and [facility] memory intact Attitude: cooperative Affect: full range [...] documented as of this encounter Care Teams Diabetes Solutions Specialist Relationship Specialty Start Date End Date Enedina Mcguire NP [address] [place] [address] PCP - General Internal Medicine 10/05/24 Maureen Pantoja, ЮЛИЯ Txp Post Coordinator Transplant Hepatology 10/28/24 documented as of this encounter
--- OUTSIDE RECORDS SUMMARY | 2024-12-18 14:00 | XMS_ITS | Encounter Summary ---
Author Organization [facility] Address [address] [place] [address] Care Team Providers Care Supervisor Mold Cleaning And Storage Name Role Phone Enedina Mcguire NP Primary Care Provider [phone] Maureen Pantoja RN Unavailable Unavail able Source [...] release of HIV test results or diagnoses. [id number] Reason for Visit * Auth/Cert (Routine) Specialty Diagnoses / Procedures Referred By Shane hernadez Referred To Contact Psychiatry [facility] Psychiatry Transplant at [address] [address] Phone: tel: fax: Referral ID Status Reason Start Date Expiration Date Visits Re quested Visits Authorized [id number] 1 1 Encounter Details Date Type Department Care Team (Late st Contact Info) Description 12/18/2024 2:00 PM EDT Office Visit [facility] Psychiatry Transplant at [address] [place] [phone] Craig Warren PsyD [address] [facility] [address] [place] [address] Alcohol use disorder (Primary Dx); [...] the past 12 months has th e [employer], [employer], oil, or water [employer] threatened to shut off services in your [...] AUD Plan: No follow up with this creative writer indicated at this time Patient to [...] as of this encounter Care Teams Supervisor Mold Cleaning And Storage Relationship Specialty Start Date End Date Enedina Mcguire NP [address] [place] [address] PCP - General Internal Medicine 10/05/24 Maureen Pantoja, ЮЛИЯ Txp Post Coordinator Transplant Hepatology 10/28/24 documented as of this encounter
--- OUTSIDE RECORDS SUMMARY | 2025-01-01 14:15 | XMS_ITS | Encounter Summary ---
Author Organization [facility] Address [address] [place] [address] Care Team Providers Care Pill Maker Name Role Phone Enedina Mcguire APRN Primary Care Provider + Reason for Visit * Reason Comments Follow-up Neck Pain Back Pain Encounter Details Date Type Department Care Team (Late st Contact Info) Description 01/01/2025 2:15 PM EDT Office Visit [facility] MEDICAL [facility] PAIN MANAGEMENT [address] [address] Vazquez Christie PA-C [address] [facility] [address] [place] [address] Cervical radiculopathy (Primary Dx); Long-term use of [...] Recorded In the past 12 months has [employer], gas, oil, or water [employer] threatened to shut off services in [...] GED or equivalent No 07/09/2024 Preferred Language Bangladeshi 07/09/2024 PHQ-2 Answer Date Recorded Patient Health [...] liver transplant that took place at the [facility]. Patient does report he has not [...] Surgeon: Presley Montes De Oca MD; Location: [facility]; Service: Gastroenterology; Laterality: N/A; ENDOSCOPY N/A 07/29/2022 Procedure: ESOPHAGOGASTRODUODENOSCOPY; Surgeon: Presley Montes De Oca MD; Location: [facility]; Service: Gastroenterology; Laterality: N/A; WITH APC [...] Referrals: None indicated 9. Records: [facility] reviewed; [facility] notes reviewed 10. Lifestyle goals: Follow-up 3 months [facility] Pain Management Vazquez Christie PA-C documented in this encounter Plan of Treatment Upcoming Encounters Date Type Department Care Team (Late st Contact Info) Description 04/02/2025 2:15 PM EST Office Visit [facility] PAIN MANAGEMENT [address] [address] Vazquez Christie PA-C [address] [address] documented as of this encounter [...] documented as of this encounter Care Teams Pill Maker Relationship Specialty Start Date End Date Enedina Mcguire APRN [address] [place] [address] PCP - General Nurse Practitioner 10/27/24 documented as of this encounter
--- OUTSIDE RECORDS SUMMARY | 2025-01-06 08:20 | XMS_ITS | Encounter Summary ---
Author Organization [facility] Address [address] [place] [address] Care Team Providers Care Drafter (Cad) Electronic Name Role Phone Enedina Mcguire NP Primary Care Provider + [phone] Maureen Pantoja RN Unavailable Unavail able Source [...] release of HIV test results or diagnoses. [id number] Reason for Visit * Reason Comments Liver Transplant Follow-up Encounter Details Date Type Department Care Team (Late st Contact Info) Description 01/06/2025 8:20 AM EDT Office Visit [facility] Liver Transplant at [address] [address] Cosmo Pacheco MD [address] [place] [address] Liver/[place] [address] Mahad Alonzo MD [facility] [place] [address] S/P liver transplant (CMS-HCC) (Primary [...] the past 12 months has th e [employer], gas, oil, or water company threatened to [...] Nutrition: patient continues close f/u w/ transplant religious assistant. - Bone health: Vit D level to be drawn ~POD#90. - Labs: Labs (CBC w/ diff, renal panel, liver panel, tacro level) weekly. Lipid panel, HgbA1C and Vit D level to be drawn at POD#90, HgbA1C and Vit D level to be drawn at POD#180. - Follow up: RTC 1 month Mahad Alonzo MD Transplant Surgery [phone] [1] Allergies Allergen Reactions Adhesive Itching and [...] Confirmation, B Lab Routine S/P liver transplant ([facility]) Immunosuppression ([facility] Kidney transplant recipient Alcohol use disorder weekly for 67 Occurrences starting 01/06/2025 until 07/21/2025 documented as of this encounter Visit Diagnoses Diagnosis S/P liver transplant ([facility] [place] Primary Immunosuppression ([facility] [place] Kidney transplant recipient Alcohol use disorder documented in this encounter Additional Health Concerns Infection Onset Date Last Indicated Resolved Time 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
--- OUTSIDE RECORDS SUMMARY | 2025-01-06 09:30 | XMS_ITS | Encounter Summary ---
Author Organization [facility] Address [facility] [place] [address] Care Team Providers Care Loss Control Representative Name Role Phone Enedina Mcguire NP Primary Care Provider + [phone] Maureen Pantoja RN Unavailable Unavail able Source [...] release of HIV test results or diagnoses. [id number] Health Encounter Details Date Type Department Care Team (Late st Contact Info) Description 01/06/2025 9:30 AM EDT Office Visit [facility] Liver Transplant at [place] [id number] [place] [address] Leisa Juarez MD [address] [place] [address] 2nd [place] [address] Kidney transplant recipient (Primary Dx); [...] liver (CMS-HCC) Esophageal varices (CMS-HCC) Hepatorenal syndrome ([facility]-H[facility]) Hypertension Other hyperlipidemia 07/26/2024 Renal cell carcinoma [...] Low Risk (07/09/2024) Received from [facility] Overall Financial Resource Strain (CARDIA) Difficulty [...] Activity: Unknown (07/14/2024) Received from [facility] Exercise Vital Sign Days of Exercise per Week: Patient unable to answer Minutes of Exercise per Session: Not on file Stress: Patient Unable To Answer (07/14/2024) Received from [facility] [employer] [place] [facility] - Occupational Stress Questionnaire Feeling of Stress : Patient unable to answer Social Connections: Patient Unable To Answer (07/14/2024) Received from [facility] Social Connection and Isolation Panel [NHANES] [...] Results Component Value Date PTH 36.0 10/25/2024 [id number] 7.1 (L) 10/08/2024 Hemoglobin A1C: Lab Results [...] Discussed with Dr. Juarez. Lauren Santos, SAMSON, SUPERVISOR AIRCRAFT CLEANING, DIRECTOR OF SOFTWARE ENGINEERING- Transplant Nephrology [phone] Preferred contact: secure chat The HPI, ROS, [...] documented as of this encounter Care Teams Loss Control Representative Relationship Specialty Start Date End Date Enedina Mcguire NP [address] [place] [address] PCP - General Internal Medicine 10/05/24 Maureen Pantoja, ЮЛИЯ Txp Post Coordinator Transplant Hepatology 10/28/24 documented as of this encounter
--- OUTSIDE RECORDS SUMMARY | 2025-01-27 18:28 | XMS_ITS | Encounter Summary ---
Author Organization [facility] Address [facility] [place] [address] Care Team Providers Care Electronic Prepress Technician Name Role Phone Enedina Mcguire NP Primary Care Provider + [phone] Maureen Pantoja RN Unavailable Unavail able Source [...] release of HIV test results or diagnoses. [id number] Reason for Visit * Reason Comments Fever Immunocompromised 99F x1 day ago Diarrhea Headache * Auth/Cert (Routine) Specialty Diagnoses / Procedures Referred By Contac t Referred To Contact Transplant Diagnoses Diarrhea of presumed infectious origin [address] [place] [address] Phone: tel: Referral ID Status Reason Start Date Expiration Date Visits Re quested Visits Authorized [id number] 1 1 Encounter Details Date Type Department Care Team (Latest Contact Info) Description 01/27/2025 6:28 PM EDT - 01/30/2025 2:25 PM EDT Hospital Encounter [address] [place] [address] Sunny Wei MD [address] [place] [address] Lydia Sanchez MD [address] [facility] [place] [address] Diarrhea of presumed infectious origin (Primary Dx); Immunosuppression ([facility]) Discharge Disposition: Home or Self Care [...] the past 12 months has th e [employer], gas, oil, or water [employer] threatened to shut off services in your [...] Tian LSW - 01/30/2025 1:04 PM EDT [facility] Care Management Discharge Summary Patient name: Julien Gilbert Patient : 1985 Age: 39 y.o. Gender: male Patient emergency contact: Extended Emergency Contact Information Primary Emergency Contact: OfeliaIna (next of kin) Mobile Relation: Spouse Secondary [...] Member Name and Relationship Notified at Discharge: Abdaiziz Gilbert- Family Contact Number: [phone] Plan reviewed with MD and other members of the health care team: Yes Care Plan Completed: Yes No further CM/SW needs. This plan has been reviewed with the multi-disciplinary team. Treatment Preferences Treatment Preferences: Distance Post-Discharge Goals Patient's Post-Discharge goals: Get stronger at home. Post Acute Care Provider Information: Community Services at Discharge Community Services at Home post discharge: Not Applicable RONALDO Garner [phone] * Feliciano Gomez CNP - 01/30/2025 8:39 AM EDT [facility] Inpatient Discharge Summary Patient: Julien Gilbert Age: 39 y.o. [facility]: [id number] Date of Admission: 01/27/2025 Date of Discharge: 01/30/2025 Attending Physician: Lydia Sanchez MD Primary Care Physician: Enedina Mcguire NP Diagnoses Present on Admission Past Medical History: Diagnosis Date Alcoholic cirrhosis of liver (CMS-HCC) Esophageal varices ([facility]) Hepatorenal syndrome ([facility]) Hypertension Other hyperlipidemia 07/26/2024 Renal cell carcinoma ([facility]) Thrombocytopenia ([facility]) Thyroid disease Discharge Diagnoses There are [...] Your Medications These medications were sent to [facility] [address] [place] [id number] Hours: Sunday - Sunday: 8:00AM - 6:00PM [...] Instructions: Call post-kidney transplant clinic with questions [phone] [facility] at [phone] and ask for the kidney service parts coordinator interventionist if you experience any of the following: [...] through Care Everywhere. * C. Diff Infection Dpai-iv-Uvlh (Argentine) documented in this encounter Medications at Time [...] ncounter for therapeutic drug monitoring,S/P liver transplant ([facility]),Hypomagnes emia,Kidney transplant recipient,Hypertensi on, unspecified type,Gastroesophagea l reflux disease, unspecified whether esophagitis present Take 1 capsule (50,000 Units total) by mouth once a week. 4 capsule 2 5 famotidine (PEPCID) 20 MG tabletIndications:En counter for therapeutic drug monitoring,S/P liver transplant ([facility]),Hypomagnes emia,Kidney transplant recipient,Hypertensi on, unspecified type,Gastroesophagea l reflux disease, unspecified whether esophagitis present Take 1 tablet (20 mg total) by mouth 2 times a day. 60 tablet 2 5 fidaxomicin (DIFICID) 200 mg Tab tablet Take 1 tablet (200 mg total) by mouth 2 times a day for 8 days. 16 tablet 01/30/2025 11:36 AM EDT 5 02/08/20 25 FLUoxetine (PROZAC) 20 MG capsule Take 1 capsule (20 mg total) by mouth daily. 30 capsule 2 5 gabapentin (NEURONTIN) 100 MG capsuleIndications:E ncounter for therapeutic drug monitoring,S/P liver transplant ([facility]),Hypomagnes emia,Kidney transplant recipient,Hypertensi on, unspecified [...] ncounter for therapeutic drug monitoring,S/P liver transplant ([facility]),Hypomagnes emia,Kidney transplant recipient,Hypertensi on, unspecified [...] counter for therapeutic drug monitoring,S/P liver transplant ([facility]),Hypomagnes emia,Kidney transplant recipient,Hypertensi on, unspecified [...] of Liver Transplant Rejection. 330 capsule 5 08/11/202 5 magnesium chloride (SLOW MAG) 71.5 mg TbECIndications:hypo magnesemia Take 2 tablets (143 mg total) by mouth 3 times a day. Indications: hypomagnesemia 180 tablet 2 5 02/03/20 documented as of this encounter Progress Notes [...] and treatment with this patient/family. Please page [phone] with any additional questions or concerns. Thank [...] 0.5 / \ 0.08 / \ / / \ / 59 \ Lipids 10/07/2024 Value TChol <25 (10/07) Trig 30 (10/07) LDL 4* (10/07) HDL See Note (10/07) PT/INR/PTT - 12/23/2024 PT 10.5 (12/23) INR 0.94 (12/23) PTT 41.7* (10/25) Signed: Bisi Gonzalez MD 01/29/2025 9:15 AM Pager: [phone] * Feliciano Gomez CNP - 01/29/2025 8:12 [...] Wwp : Voids spontaneously Labs: Recent Labs 01/27/25201901/28/2514 01/29/25 0555 WBC 2.0* 2.0* 2.4* HGB [...] plan per attending physician Feliciano Gomez CNP ,SIEVE GRADER TENDER Transplant Surgery 01/29/2025 This note was completely [...] plan per attending physician Feliciano Gomez CNP ,SIEVE GRADER TENDER Transplant Surgery 01/28/2025 Cosigned by Lydia Sanchez [...] Sevilla MD - 01/27/2025 7:19 PM EDT [facility] ED Note Date of Service: 01/27/2025 [...] History and Physical Patient: Julien Gilbert CSN: [id number] History CC: neutropenic fevers, diarrhea HPI: Julien [...] Strain: Low Risk (07/09/2024) Received from [facility] Overall Financial Resource Strain (CARDIA) [...] (07/14/2024) Received from [facility] [place] of Occupational Health - Occupational Stress Questionnaire [...] SQH Admit to floor SHELBY BLANCO MD [facility] General Surgery Cosigned by Lydia Sanchez [...] this encounter Consult Notes * NUBIA Tian, NATURAL RESOURCE SPECIALIST - 01/28/2025 11:02 AM EDT [facility] Alcohol Audit Julien Gilbert [id number] 1985 Alcohol Level Alcohol Level obtained?: No [...] Lydia Sanchez MD Patient's Name: Julien Gilbert [facility]: [id number] Reason for Consult Antimicrobial Recommendations Assessment & [...] chicken or bird exposure. Remote cruise to [place], but no recent international travel. Microbiology Blood [...] hyperlipidemia 07/26/2024 Renal cell carcinoma (CMS-HCC) Thrombocytopenia ([facility]) Thyroid disease Social Hx: Social History[1] Family [...] 12.7* HCT 35.1* PLT 109* Recent Labs 01/27/25 2020 01/28/25 0714 NA 136 138 K 4.0 3.7 [...] pain. Bisi Gonzalez MD Infectious Diseases Pager [phone] * NUBIA Tian, NATURAL RESOURCE SPECIALIST - 01/28/2025 8:21 AM EDT HEALTH Care Management/Social Work Assessment Patient Information Patient Name: Julien Gilbert Hospital Day: 1 Inpatient/Observation: Inpatient Admit Date: 01/27/2025 Admission Diagnosis: Diarrhea of presumed infectious origin [R19.7] Attending provider: Lydia Sanchez MD PCP: Enedina Mcguire NP Home Pharmacy: [facility] [address] [place] [address] [address] [facility] [place], [place] - [address] [facility] [address] [facility] [address] [facility] [address] [facility] [address] [facility] [address] Pertinent Medications Anticoagulation therapy: No New Diabetic: No Issues related to obtaining medications: none Payor Information Medical Insurance Coverage: Payor: [employer] / Plan: [employer] / Product Type: *No Product type* / Secondary Payor: [facility] Functional Assessment Functional Assessment Assessment Information Obtained [...] Extended Emergency Contact Information Primary Emergency Contact: OfeliaAbdiaziz (next of kin) Mobile Relation: Spouse Secondary Emergency Contact: ofeliabrown Mobile Relation: Brother Support Systems Legal Status: N/A Primary Caregiver: Self Marital Status: Relative Search Completed: No Demographics Correct:: Yes Expected Discharge Disposition: Home Next of Kin: Abdiaziz Gilbert Next of Kin Relationship: Spouse Next of Kin Assessment Information Obtained From:: Patient, Chart Review Other Pertinent Information SW consult request reviewed and completed. SWCM Neisha Hillman introduced self to patient, explained role, [...] Patient reported that he is not a . Patient reported he is employed full- time. Patient does not report financial concerns/difficulties at this time. Patient is not using community resources tomeet his needs at this time. Patient does not have Advance Directives. Patient's legal next of kin is Abdiaziz Glibert, his spouse. Patient has a history of and current mental health concerns or diagnoses of PTSD,Generalized Anxiety Disorder) Patient has a history of alcohol abuse prior to transplant. He has no tobacco use, and/or drug/illicit substance use concerns. Patient does not use home oxygen, DME use, or dialysis. Patient has no history of penitentiary facility or inpatient rehabilitation facility admissions. Patient has no history of home health care services. Patient receives outpatient labs at his appointments. PCP: Enedina Mcguire SWCM confirmed with patient/family that there are no additional SWCM needs at this time. SW provided the family with SW contact [phone]. Patient/Family aware and taking part in the [...] interest(s) are disclosed as appropriate. NUBIA TIAN, NATURAL RESOURCE SPECIALIST [phone] documented in this encounter Nursing Notes * [...] and is agreeable. Receiving RN may call [phone] to consult ED RN with questions regarding [...] Patient will remain free of falls Goal: [place] Fall Precautions Outcome: Progressing Problem: Daily Care [...] Tian LSW - 01/29/2025 11:45 AM EDT [facility] Case Management/Social [...] disease. PCP: Enedina Mcguire NP Home Pharmacy: [facility] - [place], [facility] [address] [place] [address] [facility] [place] [place] - [address] [place] [address] [place] [address] [place] [address] Medical Insurance Coverage: [facility] / Plan: [facility] / Product Type: *No Product type* / Other Pertinent Information SWCM attended multidisciplinary rounds with the Transplant Team. SWCM reviewed patient's chart. Perteam, patient is not medically ready to discharge. Patient to receive CT scan. Patient goes outpatient for lab draws. Discharge Plan Anticipated discharge plan: Home w OP labs Anticipated discharge date: 01/30 CM/SW will continue to follow and remain available for discharge planning needs. NUBIA TIAN, RONALDO [phone] * Plan of Care - Vandana Vilchis [...] Patient will remain free of falls Goal: [place] Fall Precautions Outcome: Progressing Problem: Daily Care [...] Patient will remain free of falls Goal: [place] Fall Precautions Outcome: Progressing * ED Medical Screening Exam - NAA Dunn - 01/27/2025 6:36 PM EDT [facility] for Emergency Care Provider Note MEDICAL SCREENING EXAM Date of Service: 01/27/2025 Reason for Visit: Fever Immunocompromised (89F x1 day ago), Diarrhea, and Headache MSE Plan [facility]. In short, [...] Pending) There is a bed available in [facility] and the patient will be taken directly [...] 97.8 ??F (36.6 ??C) Temp Source 01/27/25 172 Oral SpO2 01/27/25 1727 100 % Weight [...] Name Type Priority Associated Diagnoses Date /Time Adenovirus PCR Lab Routine 01/27/2025 8:20 PM EDT Blood Culture, Acid Fast (Blood) Microbiology Routine 01/27/2025 8:20 PM EDT Fungus culture, blood (Blood) Microbiology Routine 01/27/2025 8:20 PM EDT Scheduled Orders Name Type Priority Associated Diagnoses Orde r Schedule Adenovirus PCR Lab Routine Once for 1 Occurrences starting 01/27/2025 until 01/27/2025 documented as of this encounter Procedures Procedure [...] Routine 9:30 PM EDT UPPER RESPIRATORY VIRAL/BACTERIAL PANEL-APRON CLEANER ONLY Routine 01/27/2025 9:30 PM EDT LACTIC ACID, VENOUS BLOOD GAS STAT 01/27/2025 9:30 PM EDT HISTOPLASMA/BLASTOMYCES AG, EIA, U Routine 01/27/2025 8:44 PM EDT STREP PNEUMO-LEGIONELLA URINE ANTIGEN Routine 01/27/2025 8:44 PM EDT URINALYSIS, MICROSCOPIC STAT 01/28/20 8:44 PM EDT URINALYSIS-MACROSCOPIC W/REFLEX TO MICROSCOPIC STAT 01/27/2025 8:44 PM EDT HISTOPLASMA/BLASTOMYCES AG, EIA, S Routine 01/27/2025 8:20 PM EDT FUNGITELL LQOY-C-LIYBVM Routine 01/28/20 25 8:20 PM EDT CRYPTOCOCCUS ANTIGEN, SERUM Routine 01/27/2025 8:20 PM EDT PHOSPHATIDYLETHANOL CONFIRMATION, B Routine 01/27/2025 8:20 PM EDT BK VIRUS QUANTITATIVE BY PCR, BLOOD Routine 01/27/2025 8:20 PM EDT CYTOMEGALOVIRUS DNA, QUANT, RT PCR Routine 01/27/2025 8:20 PM EDT HEPATIC FUNCTION PANEL STAT 8:20 PM EDT KATIE SCHAFER VIRUS DNA, QNT PCR, BLOOD Routine 01/27/2025 8:20 PM EDT [facility]ER[facility] [...] * (ABNORMAL) Differential (01/30/2025 7:41 AM EDT) Pathologist [facility] Neutrophils Relative 39.1(L) 40.0 - 80.0 % 01/30/2025 8:09 AM EDT [facility] Lymphocytes Relative 43.8 15.0 - 45.0 % 01/30/2025 8:09 AM EDT [facility] Monocytes Relative 14.2(H) 0.0 - 12.0 % 01/30/2025 8:09 AM EDT [facility] Eosinophils Relative 2.2 0.0 - 8.0 % 01/30/2025 8:09 AM EDT [facility] Basophils Relative 0.7 0.0 - 1.0 % 01/30/2025 8:09 AM EDT [facility] nRBC 0 0 - 0 /100 WBC 01/30/2025 8:09 AM EDT [facility] Neutrophils Absolute 782(L) 1,520 - 8,640 /uL 01/30/2025 8:09 AM EDT [facility] Lymphocytes Absolute 876 570 - 4,860 /uL 01/30/2025 8:09 AM EDT [facility] Monocytes Absolute 284 0 - 1,296 /uL 01/30/2025 8:09 AM EDT [facility] Eosinophils Absolute 44 0 - 864 /uL 01/30/2025 8:09 AM EDT [facility] Basophils Absolute 14 0 - 108 /uL 01/30/2025 8:09 AM EDT [facility] Whole Blood 01/30/2025 7:41 AM EDT 01/30/2025 8:01 AM EDT Feliciano Gomez [facility] BLOOD ORDERABLES Final Resu lt [facility] [address] [address], [facility] * Tacrolimus level (01/30/2025 5:51 AM EDT) Pathologist [facility] Tacrolimus (LC-MS) 6.5 3.0 - 15.0 ng/mL 01/30/2025 11:11 AM EDT [facility] Comment:Performed via liquid chromatography tandem mass spectrometry. Detection limit: 1 ng/mL. Individual target concentrations may vary due to target organ and time after transplant. This test has been developed and its performance characteristics determined by [facility] [...] not regarded as investigational. Whole Blood 01/30/2025 5:5 1 AM EDT 01/30/2025 6:31 AM EDT us Carlton Hill MD LAB BLOOD ORDERABLES Final Result [facility] [address] [facility] * (ABNORMAL) Renal Function Panel w/EGFR (01/30/2025 5:51 AM EDT) Sodium 139 133 - 146 mmol/L 01/30/2025 7:06 AM EDT [facility] Potassium 3.5 3.5 - 5.3 mmol/L 01/30/2025 7:06 AM EDT [facility] Chloride 105 98 - 110 mmol/L 01/30/2025 7:06 AM EDT [facility] CO2 26 21 - 33 mmol/L 01/30/2025 7:06 AM EDT [facility] Anion Gap 8 3 - 16 mmol/L 01/30/2025 7:06 AM EDT [facility] BUN 29(H) 7 - 25 mg/dL 01/30/2025 7:06 AM EDT [facility] Creatinine 1.14 0.60 - 1.30 mg/dL 01/30/2025 7:06 AM EDT [facility] Glucose 114(H) 70 - 100 mg/dL 01/30/2025 7:06 AM EDT [facility] Calcium 8.7 8.6 - 10.3 mg/dL 01/30/2025 7:06 AM EDT [facility] Phosphorus 5.1(H) 2.1 - 4.7 mg/dL 01/30/2025 7:06 AM EDT [facility] Albumin 4.1 3.5 - 5.7 g/dL 01/30/2025 7:06 AM EDT HEALTH LAB Osmolality, Calculated 295 278 - 305 mOsm/kg 01/30/2025 7:06 AM EDT [facility] EGFR 83 01/30/2025 7:06 AM EDT [facility] Comment:As of 2021, the [...] Hill MD LAB BLOOD ORDERABLES Final Result [facility] [address] * (ABNORMAL) Hepatic Function Panel (01/30/2025 5:51 AM EDT) Total Bilirubin 0.3 0.0 - 1.5 mg/dL 01/30/2025 7:06 AM EDT [facility] Bilirubin, Direct 0.05 0.00 - 0.40 mg/dL 01/30/2025 7:06 AM EDT [facility] AST 13 13 - 39 U/L 01/30/2025 7:06 AM EDT [facility] ALT 14 7 - 52 U/L 01/30/2025 7:06 AM EDT [facility] Alkaline Phosphatase 60 36 - 125 U/L 01/30/2025 7:06 AM EDT [facility] Total Protein 5.9(L) 6.4 - 8.9 g/dL 01/30/2025 7:06 AM EDT [facility] Albumin 4.1 3.5 - 5.7 g/dL 01/30/2025 7:06 AM EDT [facility] Bilirubin, Indirect 0.25 0.00 - 1.10 mg/dL 01/30/2025 7:06 AM EDT [facility] Plasma 01/30/2025 5:51 AM EDT 01/30/2025 6:31 AM EDT Carlton Hill MD LAB BLOOD ORDERABLES Final Result [facility] [address] [facility]. [address] * Magnesium (01/30/2025 5:51 AM EDT) Magnesium 1.7 1.5 - 2.5 mg/dL 01/30/2025 7:06 AM EDT [facility] Plasma 01/30/2025 5:51 AM EDT 01/30/2025 6:31 AM EDT Carlton Hill MD LAB BLOOD ORDERABLES Final Result [facility] [address] * (ABNORMAL) CBC (01/30/2025 5:51 AM EDT) WBC 2.1(L) 3.8 - 10.8 10E3/uL 01/30/2025 6:41 AM EDT [facility] RBC 3.41(L) 4.20 - 5.80 10E6/uL 01/30/2025 6:41 AM EDT [facility] Hemoglobin 11.2(L) 13.2 - 17.1 g/dL 01/30/2025 6:41 AM EDT [facility] Hematocrit 31.9(L) 38.5 - 50.0 % 01/30/2025 6:41 AM EDT [facility] MCV 93.7 80.0 - 100.0 fL 01/30/2025 6:41 AM EDT [facility] MCH 32.9 27.0 - 33.0 pg 01/30/2025 6:41 AM EDT [facility] MCHC 35.1 32.0 - 36.0 g/dL 01/30/2025 6:41 AM EDT [facility] RDW 14.8 11.0 - 15.0 % 01/30/2025 6:41 AM EDT [facility] Platelets 95(L) 140 - 400 10E3/uL 01/30/2025 6:41 AM EDT [facility] MPV 6.4(L) 7.5 - 11.5 fL 01/30/2025 6:41 AM EDT [facility] Whole Blood 01/30/2025 5:51 AM EDT 01/30/2025 6:33 AM EDT Carlton Hill MD LAB BLOOD ORDERABLES Final Result Performing Organization Address City/State/[facility] Co de Phone Number [facility] [address] [place] [address], [facility] * CT Neck With IV contrast (01/29/2025 [...] cavity, parapharyngeal space, and retropharyngeal space. Normal outside energy sales representatives space, infratemporal fossa, and buccal [...] CT images of the neck were obtained [id number] mL of IOHEXOL 350 MG IODINE/ML INTRAVENOUS SOLUTION administeredintravenously . Sagittal and coronal 2D multiplanar reconstructions wereperformed at the scanner. COMPARISON: None available FINDINGS: Adequate diagnostic quality. Nasopharynx: Symmetric with no mass. Normal torus tubarius, fossa ofRosenmuller, and adenoid tonsillar tissue. Suprahyoid neck: Normal oropharynx, oral cavity, parapharyngeal space, andretropharyngeal space. Normal outside energy sales representatives space, infratemporal fossa, andbuccal space. [...] - 15.0 ng/mL 01/29/2025 9:10 AM EDT [facility] Comment:Performed via liquid chromatography tandem mass spectrometry. Detection limit: 1 ng/mL. Individual target concentrations may vary due to target organ and time after transplant. This test has been developed and its performance characteristics determined by [facility] [...] Hill MD LAB BLOOD ORDERABLES Final Result [facility] [address] [place] [address], [facility] * (ABNORMAL) Renal Function Panel w/EGFR (01/29/2025 5:55 AM EDT) Sodium 138 133 - 146 mmol/L 01/29/2025 7:13 AM EDT [facility] Potassium 3.9 3.5 - 5.3 mmol/L 01/29/2025 7:13 AM EDT [facility] Chloride 102 98 - 110 mmol/L 01/29/2025 7:13 AM EDT [facility] CO2 27 21 - 33 mmol/L 01/29/2025 7:13 AM EDT [facility] Anion Gap 9 3 - 16 mmol/L 01/29/2025 7:13 AM EDT [facility] BUN 23 7 - 25 mg/dL 01/29/2025 7:13 AM EDT [facility] Creatinine 1.39(H) 0.60 - 1.30 mg/dL 01/29/2025 7:13 AM EDT [facility] Glucose 108(H) 70 - 100 mg/dL 01/29/2025 7:13 AM EDT [facility] Calcium 9.6 8.6 - 10.3 mg/dL 01/29/2025 7:13 AM EDT [facility] Phosphorus 5.6(H) 2.1 - 4.7 mg/dL 01/29/2025 7:13 AM EDT [facility] Albumin 4.8 3.5 - 5.7 g/dL 01/29/2025 7:13 AM EDT [facility] Osmolality, Calculated 290 278 - 305 mOsm/kg 01/29/2025 7:13 AM EDT [facility] EGFR 65 01/29/2025 7:13 AM EDT [facility] Comment:As of 2021, the [...] 5:55 AM EDT 01/29/2025 6:41 AM EDT us Carlton Hill MD LAB BLOOD ORDERABLES Final Result Performing Organization Address [facility] Co de Phone Number [facility] [address] [facility]. [address] * Hepatic Function Panel (01/29/2025 5:55 AM EDT) Total Bilirubin 0.5 0.0 - 1.5 mg/dL 01/29/2025 7:13 AM EDT [facility] Bilirubin, Direct 0.08 0.00 - 0.40 mg/dL 01/29/2025 7:13 AM EDT [facility] AST 19 13 - 39 U/L 01/29/2025 7:13 AM EDT [facility] ALT 19 7 - 52 U/L 01/29/2025 7:13 AM EDT [facility] Alkaline Phosphatase 59 36 - 125 U/L 01/29/2025 7:13 AM EDT [facility] Total Protein 7.0 6.4 - 8.9 g/dL 01/29/2025 7:13 AM EDT [facility] Albumin 4.8 3.5 - 5.7 g/dL 01/29/2025 7:13 AM EDT [facility] Bilirubin, Indirect 0.42 0.00 - 1.10 mg/dL 01/29/2025 7:13 AM EDT [facility] Plasma 01/29/2025 5:55 AM EDT 01/29/2025 6:41 AM EDT Carlton Hill MD LAB BLOOD ORDERABLES Final Result Performing Organization Address [facility]/ZIP Co de Phone Number [facility] [address] [facility]. [address] * Magnesium (01/29/2025 5:55 AM EDT) Magnesium 2.5 1.5 - 2.5 mg/dL 01/29/2025 7:13 AM EDT [facility] Plasma 01/29/2025 5:55 AM EDT 01/29/2025 6:41 AM EDT Carlton Hill MD LAB BLOOD ORDERABLES Final Result [facility] [address] * (ABNORMAL) CBC (01/29/2025 5:55 AM EDT) WBC 2.4(L) 3.8 - 10.8 10E3/uL 01/29/2025 6:53 AM EDT [facility] RBC 3.88(L) 4.20 - 5.80 10E6/uL 01/29/2025 6:53 AM EDT [facility] Hemoglobin 12.8(L) 13.2 - 17.1 g/dL 01/29/2025 6:53 AM EDT [facility] Hematocrit 36.6(L) 38.5 - 50.0 % 01/29/2025 6:53 AM EDT [facility] MCV 94.1 80.0 - 100.0 fL 01/29/2025 6:53 AM EDT [facility] MCH 32.9 27.0 - 33.0 pg 01/29/2025 6:53 AM EDT [facility] MCHC 34.9 32.0 - 36.0 g/dL 01/29/2025 6:53 AM EDT [facility] RDW 14.8 11.0 - 15.0 % 01/29/2025 6:53 AM EDT [facility] Platelets 119(L) 140 - 400 10E3/uL 01/29/2025 6:53 AM EDT [facility] MPV 6.2(L) 7.5 - 11.5 fL 01/29/2025 6:53 AM EDT [facility] Whole Blood 01/29/2025 5:55 AM EDT 01/29/2025 6:41 AM EDT Carlton Hill MD LAB BLOOD ORDERABLES Final Result [facility] [address] * Sed Rate (01/29/2025 5:55 AM EDT) Sed Rate 2 0 - 15 mm/hr 01/29/2025 7:03 AM EDT [facility] Whole Blood 01/29/2025 5:55 AM EDT 01/29/2025 6:41 AM EDT Feliciano Gomez [facility] BLOOD ORDERABLES Final Resu lt Performing Organization Address City/[facility]/ZIP Co de Phone Number [facility] [address] [facility]. [address] * C-Reactive Protein (01/29/2025 5:55 AM EDT) [facility] CRP 4.1 1.0 - 10.0 mg/L 01/29/2025 7:13 AM EDT [facility] Plasma 01/29/2025 5:55 AM EDT 01/29/2025 6:41 AM EDT Feliciano Gomez [facility] BLOOD ORDERABLES Final Resu lt Performing Organization Address [facility] Co de Phone Number [facility] [address] [facility]. [address] * Giardia Cryptosporidium Antigens (Feces) (01/28/2025 9:27 PM EDT) [facility] Cryptosporidium Ag Negative Negative 2024 8:03 AM EDT [facility] Giardia Ag Negative Negative 01/29/2025 8:03 AM EDT [facility] Comment: Detection of Giardia and Cryptosporidium antigen is more sensitive and specific than microscopy. Because antigens are shed continuously, repeat testing is rarely warranted. Feces 01/28/2025 9:27 PM EDT 01/28/2025 10:07 PM EDT Comment:F Ruby Chiang MD MICROBIOLOGY - GENERAL ORDERAB LES Final Result Performing Organization Address [facility]/ZIP Co de Phone Number [facility] [address] * Ova and Parasite Comprehensive w/Giardia (Feces) (01/28/2025 9:27 PM EDT) Pathologist [facility] O & P Method: Concentration and Trichrome Stain [facility] Results No Amoeba, Ova, Or Parasites Seen. -- O and P examination of additional specimens is recommended only for symptomatic patients, immunosuppressed patients or those with an appropriate travel history. [facility] Feces FECES / Unknown 01/28/2025 9 :27 PM EDT 01/28/2025 10:07 PM EDT Comment:F Ruby Chiang MD MICROBIOLOGY - GENERAL ORDERAB LES Final Result Performing Organization Address [facility] Co de Phone Number [facility] [address] * Clostridium Difficile Toxin A/B Antigen (01/28/2025 1:21 PM EDT) [facility] CDIFF Tox AGN Negative Negative 01/28/2025 10:35 PM EDT [facility] Comment:C. difficile nucleic acid [...] ORDERABL ES Final Result Performing Organization Address [facility] Co de Phone Number [facility] [address] * (ABNORMAL) Clostridium difficile DNA Amplification (01/28/2025 1:21 PM EDT) [facility] Clost. Diff DNA Amp. Positive( A) Negative 01/28/2025 11:22 PM EDT [facility] Comment:Positive indicates t oxigenic C. difficile was detected in the sample. Negative indicates that toxigenic C. difficile was not detected above the limit of the detection of the assay. The test methodology is a FDA approved DNA amplification assay. Stool, Liquid FECES / Unknown 01/28/2025 1:21 PM EDT 01/28/2025 1:48 PM EDT Comment:F Feliciano Gomez RADIATION THERAPY TECHNICIAN BODY FLUIDS AND STOOLS ORDERABL ES Final Result [facility] [address] [id number] * Phosphatidylethanol Confirmation, B (01/28/2025 7:14 AM EDT) PETH 16:0/18.1 (POPETH) 394 Cutoff: 10 ng/mL 01/30/2025 9:58 AM EDT [facility] Comment: Phosphatidylethanol (PEth) homologues [...] its performance characteristics determined by [facility] in a manner consistent with CLIA requirements. This test has not been cleared or approved by the U.S. Food and Drug Administration. Test Performed by: [facility] - [address] [address] Job Order Clerk: Kathy Ortiz Ph.D.; CLIA# [id number] Whole Blood 01/28/2025 7:14 AM EDT 01/30/2025 9:58 AM EDT Carlton Hill MD LAB BLOOD ORDERABLES Final Result Performing Organization Address [facility] Co de Phone Number [facility] [address] [place] [address] * (ABNORMAL) Tacrolimus level (01/28/2025 7:14 AM EDT) Pathologist [facility] Tacrolimus (LC-MS) 16.4(H) 3.0 - 15.0 ng/mL 01/28/2025 12:41 PM EDT [facility] Comment:Performed via liquid chromatography tandem mass spectrometry. Detection limit: 1 ng/mL. Individual target concentrations may vary due to target organ and time after transplant. This test has been developed and its performance characteristics determined by [facility] [...] BLOOD ORDERABLES Final Result Performing Organization Address [facility] Co de Phone Number [facility] [address] [facility]. [address] * Renal Function Panel w/EGFR (01/28/2025 7:14 AM EDT) Sodium 138 133 - 146 mmol/L 01/28/2025 9:00 AM EDT [facility] Potassium 3.7 3.5 - 5.3 mmol/L 01/28/2025 9:00 AM EDT [facility] Chloride 102 98 - 110 mmol/L 01/28/2025 9:00 AM EDT [facility] CO2 26 21 - 33 mmol/L 01/28/2025 9:00 AM EDT [facility] Anion Gap 10 3 - 16 mmol/L 01/28/2025 9:00 AM EDT [facility] BUN 17 7 - 25 mg/dL 01/28/2025 9:00 AM EDT [facility] Creatinine 1.14 0.60 - 1.30 mg/dL 01/28/2025 9:00 AM EDT [facility] Glucose 91 70 - 100 mg/dL 01/28/2025 9:00 AM EDT [facility] Calcium 9.3 8.6 - 10.3 mg/dL 01/28/2025 9:00 AM EDT [facility] Phosphorus 4.4 2.1 - 4.7 mg/dL 01/28/2025 9:00 AM EDT [facility] Albumin 4.2 3.5 - 5.7 g/dL 01/28/2025 9:00 AM EDT [facility] Osmolality, Calculated 287 278 - 305 mOsm/kg 01/28/2025 9:00 AM EDT [facility] EGFR 83 01/28/2025 9:00 AM EDT [facility] Comment:As of 2021, the [...] Hill MD LAB BLOOD ORDERABLES Final Result [facility] [address] * (ABNORMAL) Hepatic Function Panel (01/28/2025 7:14 AM EDT) Total Bilirubin 0.8 0.0 - 1.5 mg/dL 01/28/2025 9:00 AM EDT [facility] Bilirubin, Direct 0.14 0.00 - 0.40 mg/dL 01/28/2025 9:00 AM EDT [facility] AST 17 13 - 39 U/L 01/28/2025 9:00 AM EDT [facility] ALT 19 7 - 52 U/L 01/28/2025 9:00 AM EDT [facility] Alkaline Phosphatase 45 36 - 125 U/L 01/28/2025 9:00 AM EDT [facility] Total Protein 6.2(L) 6.4 - 8.9 g/dL 01/28/2025 9:00 AM EDT [facility] Albumin 4.2 3.5 - 5.7 g/dL 01/28/2025 9:00 AM EDT [facility] Bilirubin, Indirect 0.66 0.00 - 1.10 mg/dL 01/28/2025 9:00 AM EDT [facility] Plasma 01/28/2025 7:14 AM EDT 01/28/2025 8:22 AM EDT Carlton Hill MD LAB BLOOD ORDERABLES Final Result Performing Organization Address [facility] Co de Phone Number [facility] [address] * (ABNORMAL) Magnesium (01/28/2025 7:14 AM EDT) Magnesium 1.1(L) 1.5 - 2.5 mg/dL 01/28/2025 9:00 AM EDT [facility] Plasma 01/28/2025 7:14 AM EDT 01/28/2025 8:22 AM EDT us Carlton Hill MD LAB BLOOD ORDERABLES Final Result [facility] [address] * (ABNORMAL) CBC (01/28/2025 7:14 AM EDT) WBC 2.0(L) 3.8 - 10.8 10E3/uL 01/28/2025 9:10 AM EDT [facility] RBC 3.36(L) 4.20 - 5.80 10E6/uL 01/28/2025 9:10 AM EDT [facility] Hemoglobin 11.5(L) 13.2 - 17.1 g/dL 01/28/2025 9:10 AM EDT [facility] Hematocrit 31.0(L) 38.5 - 50.0 % 01/28/2025 9:10 AM EDT [facility] MCV 92.4 80.0 - 100.0 fL 01/28/2025 9:10 AM EDT [facility] MCH 34.2(H) 27.0 - 33.0 pg 01/28/2025 9:10 AM EDT [facility] MCHC 37.0(H) 32.0 - 36.0 g/dL 01/28/2025 9:10 AM EDT [facility] RDW 14.9 11.0 - 15.0 % 01/28/2025 9:10 AM EDT [facility] Platelets 86(L) 140 - 400 10E3/uL 01/28/2025 9:10 AM EDT [facility] MPV 6.2(L) 7.5 - 11.5 fL 01/28/2025 9:10 AM EDT [facility] Whole Blood 01/28/2025 7:14 AM EDT 01/28/2025 8:22 AM EDT us Carlton Hill MD LAB BLOOD ORDERABLES Final Result [facility] [address] * CT Head WO contrast (01/28/2025 [...] with this report. Report Verified by: Cody eBnz MD at 01/28/2025 1:39 AM EDT Shelby Blanco MD IMG CT ORDERABLES Final Result * Enteric Pathogen Panel (01/27/2025 9:30 PM EDT) Campylobacter Group (C. ecoli, C. jejuni, C. trino) Not Detected Not Detected 01/28/2025 3:11 AM EDT [facility] Salmonella species Not Detected Not Detected 01/28/2025 3:11 AM EDT [facility] Shigella species Not Detected Not Detected 01/28/2025 3:11 AM EDT [facility] Vibrio Group (Vibrio cholerae, Vibrio parahaemolyticus) Not Detected Not Detected 01/28/2025 3:11 AM EDT [facility] Yersinia enterocolitica Not Detected Not Detected 01/28/2025 3:11 AM EDT [facility] Shiga toxin 1 Not Detected Not Detected 01/28/2025 3:11 AM EDT [facility] Shiga toxin 2 Not Detected Not Detected 01/28/2025 3:11 AM EDT [facility] Norovirus Not Detected Not Detected 01/28/2025 3:11 AM EDT [facility] Rotavirus Not Detected Not Detected [...] ORDERABLE S Final Result [facility] [address] [place] [address], [facility] * Respiratory viral panel (01/27/2025 9:30 PM EDT) Adenovirus Not Detected Not Detected 01/28/2025 12:20 AM EDT [facility] Coronavirus (229E,HKU1,NL63,OC 43) Not Detected Not Detected 01/28/2025 12:20 AM EDT [facility] SARS-CoV-2 Not Detected Not Detected 01/28/2025 12:20 AM EDT [facility] Human Metapneumovirus Not Detected Not Detected 01/28/2025 12:20 AM EDT [facility] Human Rhinovirus/Enterov irus Not Detected Not Detected 01/28/2025 12:20 AM EDT [facility] Influenza A Not Detected Not Detected 01/28/2025 12:20 AM EDT [facility] Influenza A H1 Not Detected Not Detected 01/28/2025 12:20 AM EDT [facility] Influenza A/H1-2009 Not Detected Not Detected 01/28/2025 12:20 AM EDT [facility] Influenza A H3 Not Detected Not Detected 01/28/2025 12:20 AM EDT [facility] Influenza B Not Detected Not Detected 01/28/2025 12:20 AM EDT [facility] Parainfluenza 1 Not Detected Not Detected 01/28/2025 12:20 AM EDT [facility] Parainfluenza 2 Not Detected Not Detected 01/28/2025 12:20 AM EDT [facility] Parainfluenza 3 Not Detected Not Detected 01/28/2025 12:20 AM EDT [facility] Parainfluenza 4 Not Detected Not Detected 01/28/2025 12:20 AM EDT [facility] Resp. Syncycial Virus A Not Detected Not Detected 01/28/2025 12:20 AM EDT [facility] Resp. Syncycial Virus B Not Detected Not Detected 01/28/2025 12:20 AM EDT [facility] Chlamydia pneumoniae Not Detected Not Detected 01/28/2025 12:20 AM EDT [facility] Mycoplasma pneumoniae Not Detected Not Detected 01/28/2025 12:20 AM EDT [facility] Comment: The Respiratory Viral-Bacterial [...] Test results have been sent to the [facility] in accordance with state requirements. For a fact sheet for healthcare providers, see https://www.fda.gov/media/322454/download. For a fact sheet for patients, see https://www.fda.gov/media/148056/download. Nasopharyngeal Swab NASOPHARYNGEAL STRUCTURE / Unknown 01/27/2025 9:30 PM EDT 01/27/2025 10:20 PM EDT Shelby Blanco MD BODY FLUIDS AND STOOLS ORDERABLE S Final Result [facility] [address] [place], [place] [address] * Lactic acid, venous, whole blood (01/27/2025 9:30 PM EDT) Lactate, Shakeel 1.4 0.5 - 1.6 mmol/L 01/27/2025 9:42 PM EDT [facility] Blood, Venous 01/27/2025 9:3 0 PM EDT 01/27/2025 9:39 PM EDT Pamela JACOME LAB BLOOD ORDERABLES Final Res ult [facility] [address] * (ABNORMAL) Urinalysis, Microscopic (01/27/2025 8:44 PM EDT) RBC, UA <1 0 - 3 /HPF 01/27/2025 9:32 PM EDT [facility] WBC, UA 1 0 - 5 /HPF 01/27/2025 9:32 PM EDT [facility] Hyaline Casts, UA 75(H) 0 - 2 /LPF 01/27/2025 9:32 PM EDT [facility] Mucus, UA Present(A) None Seen /HPF 01/27/2025 9:32 PM EDT [facility] Urine 01/27/2025 8:44 PM EDT 01/27/2025 9:01 PM EDT Pamela JACOME URINE ORDERABLES Final Result Performing Organization Address City/[facility]/ZIP Co de Phone Number [facility] [address] [facility]. [address] * Strep Pneumo-Legionella Urine Antigen (01/27/2025 8:44 PM EDT) Strept Pneumo Ag Negative Negative 01/27/2025 11:12 PM EDT [facility] Legionella Antigen Negative Negative 01/27/2025 11:12 PM EDT [facility] Urine URINE SPECIMEN / Unknown 01/27/2025 8:44 PM EDT 01/27/2025 10:21 PM EDT Narrative [facility] - 01/27/2025 11:12 PM EDT Positive indicates detection of either Streptococcus pneumoniae antigen or Legionella pneumophila serogroup 1 antigen. Negative results do not rule out pneumococcal infection or infection with L. pneumophila serogroup 1, other serogroups of L. pneumophila, or other Legionella species. Shelby Blanco MD URINE ORDERABLES Final Result [facility] [address] [facility]. [address] * Histoplasma/Blastomyces Ag, EIA, U (01/27/2025 8:44 PM EDT) Pathologist [facility] Histoplasma/Blasto myces Ag Result (Urine) Not Detected Not Detected 01/31/2025 11:06 AM EDT [facility] Comment: No antigen from Histoplasma or Blastomyces detected. False negative results may occur depending on extent of disease, and/or site of infection. Repeat testing on a new specimen if clinically indicated. Histoplasma/Blasto myces Ag Value (Urine) Not Detected ng/mL 01/31/2025 11:06 AM EDT [facility] Comment: ADDITIONAL INFORMATION This test was developed and its performance characteristics determined by [facility] in a manner consistent with CLIA requirements. This test has not been cleared or approved by the U.S. Food and Drug Administration. Test Performed by: [facility] [place] [address] Job Order Clerk: Kathy Ortiz Ph.D.; CLIA# [id number] Urine URINE SPECIMEN / Unknown 01/27/2025 8:44 PM EDT 01/31/2025 11:06 AM EDT Shelby Blanco MD URINE ORDERABLES Final Result Performing Organization Address [facility] Co de Phone Number [facility] [address] [facility]. [address] * (ABNORMAL) Urinalysis-Macroscopic w/Rfx to Microsco (01/27/2025 8:44 PM EDT) Color, UA Yellow Yellow,Straw 01/27/2025 9:32 PM EDT [facility] Clarity, UA Clear Clear 01/27/2025 9:32 PM EDT [facility] Specific Deep Gap, UA 1.015 1.005 - 1.035 01/27/2025 9:32 PM EDT [facility] pH, UA 5.5 5.0 - 8.0 01/27/2025 9:32 PM EDT [facility] Protein, UA 30(A) Negative mg/dL 01/27/2025 9:32 PM EDT [facility] Glucose, UA Negative Negative mg/dL 01/27/2025 9:32 PM EDT [facility] Ketones, UA 20(A) Negative mg/dL 01/27/2025 9:32 PM EDT [facility] Bilirubin, UA Negative Negative 01/27/2025 9:32 PM EDT [facility] Blood, UA Negative Negative 01/27/2025 9:32 PM EDT [facility] Nitrite, UA Negative Negative 01/27/2025 9:32 PM EDT [facility] Urobilinogen, UA <2.0 0.2 - 1.9 mg/dL 01/27/2025 9:32 PM EDT [facility] Leukocyte Esterase, UA Negative Negative 01/27/2025 9:32 PM EDT [facility] Urine 01/27/2025 8:44 PM EDT 01/27/2025 8:53 PM EDT us Pamela JACOME URINE ORDERABLES Final Result Performing Organization Address City/State/[facility] Co de Phone Number [facility] [address] * Phosphatidylethanol Confirmation, B (01/27/2025 8:20 PM EDT) PETH 16:0/18.1 (POPETH) 446 Cutoff: 10 ng/mL 01/30/2025 9:59 AM EDT [facility] Comment: Phosphatidylethanol (PEth) homologues [...] Cutoff: 10 ng/mL 01/30/2025 9:59 AM EDT [facility] Comment: PEth 16:0/18:2 (PLPEth) Reference ranges are not well established PEth Interpretation Positive. 01/30 9:59 AM EDT [facility] Comment: ADDITIONAL INFORMATION This report is intended for use in clinical monitoring and management of patients. It is not intended for use in employment-related testing. This test was developed and its performance characteristics determined by [facility] in a manner consistent with CLIA requirements. This test has not been cleared or approved by the U.S. Food and Drug Administration. Test Performed by: [place] [address] Job Order Clerk: Kathy Ortiz Ph.D.; CLIA# [id number] Whole Blood 01/27/2025 8:20 PM EDT 01/30/2025 9:59 AM EDT us Shelby Blanco MD LAB BLOOD ORDERABLES Final Resul t [facility] [address] [facility] [place] [address], [facility] * BK PCR, Blood (Renal Txp and BMT only) (01/27/2025 8:20 PM EDT) BKV IU DNA Quant, Blood Not Detected IU/mL 01/29/2025 1:48 PM EDT [facility] Comment: Beginning August 23, 2021, [facility] has transitioned BK viral load testing [...] log 10 IU/mL 01/29/2025 1:48 PM EDT [facility] Comment:BKV DNA Not Detected Plasma 01/27/2025 8:20 PM EDT 01/27/2025 9:49 PM EDT Shelby Blanco MD LAB BLOOD ORDERABLES Final Resul t [facility] [address] [facility] [place] [address], [facility] * Histoplasma/Blastomyces Ag, EIA, S (01/27/2025 8:20 PM EDT) Histoplasma/Blasto myces Ag Result (Serum) Not Detected Not Detected 01/30/2025 12:49 PM EDT [facility] Comment: No antigen from Histoplasma or Blastomyces detected. False negative results may occur depending on extent of disease, and/or site of infection. Repeat testing on a new specimen if clinically indicated. Histoplasma/Blasto myces Ag Value (Serum) Not Detected ng/mL 01/30/2025 12:49 PM EDT [facility] Comment: ADDITIONAL INFORMATION This test was developed and its performance characteristics determined by [facility] in a manner consistent with CLIA requirements. This test has not been cleared or approved by the U.S. Food and Drug Administration. Test Performed by: [facility] - [id number] [place] [address] Job Order Clerk: Kathy Ortiz Ph.D.; CLIA# [id number] Serum SERUM SPECIMEN / Unknown 01/27/2025 8:20 PM EDT 01/30/2025 12:49 PM EDT Comment:S us Shelby Blanco MD LAB BLOOD ORDERABLES Final Resul t [facility] [address] [place] [address], [facility] * Fungitell (01/27/2025 8:20 PM EDT) Fungitell Value <31.25 pg/mL 4:19 PM EDT [facility] Reference Value Comment 4:19 PM EDT [facility] Comment:Negative: <60, Posit bradley: >/=60 Clinical Relevance Notes 2024 4:19 PM EDT [facility] Comment: The Fungitell test [...] Cryptococcus, which produce very low levels of (1,3)-vwgo-Q-xsxgir. This test will not detect the zygomycetes, such as Absidia, Blastomyces, Mucor, and Rhizopus, which are not known to produce (1,3)-tmen-V-loheqh. In addition, the yeast phase of Blastomyces dermatitidis produces little (1,3)-ubzf-Y-eakcdp and may not be detected by the assay. Disclaimer: Notes 02/02/2025 4:19 PM EDT [facility] Comment: This test has been cleared or approved for diagnostic use by the U.S. Food and Drug Administration. Performance characteristics were verified by [employer]. Electronically signed by: Comment 02/02/2025 4:19 PM EDT [facility] Comment:Usha Landin Fungitell Result Comment 02/03/20 4:19 PM EDT [facility] Comment:Negative Interpretation Notes 02/02/2025 4:19 PM EDT [facility] Comment: (1,3) Qjzm-Y-Hzevis was NOT DETECTED in the sample. Reasons for negative results could include the patient being in the early stage of infection before detectable levels of (1,3) Rccr-O-Yvaubk are present. Clinical diagnosis should be made in the context of the patient's complete medical history. Serum 01/27/2025 8:20 PM EDT 02/02/2025 5:07 PM EDT Narrative [facility] - 02/02/2025 5:07 PM EDT PERFORMED AT: [employer] [address] [place] [address] [address] [place], [place] [id number] CORONER/MEDICAL EXAMINER: Cyril Porter, PhD PHONE: [phone] Shelby Blanco MD LAB BLOOD ORDERABLES Final Resul t [facility] [address] [place], [place] [address] * Katie-Schafer Virus (EBV) PCR (01/27/2025 8:20 PM EDT) Pathologist [facility] EBV DNA, Quantitative PCR Not Detected IU/mL 01/28/2025 10:54 AM EDT [facility] EBV DNA, Log10 See Note log 10 IU/mL 01/28/2025 10:54 AM EDT [facility] Comment: Beginning September 05, 2022, [facility] has transitioned EBV viral load testing [...] MD LAB BLOOD ORDERABLES Final Resul t [facility] [address] * Cryptococcus Ag (01/27/2025 8:20 PM EDT) Crypto Ag, Ser Negative Negative 01/27/2025 11:41 PM EDT [facility] Crypto Ag Titer, Ser Not Applicable 01/27/2025 11:41 PM EDT [facility] Serum SERUM SPECIMEN / Unknown 01/27/2025 8:20 PM EDT 01/27/2025 10:04 PM EDT Comment:S Shelby Blanco MD LAB BLOOD ORDERABLES Final Resul t Performing Organization Address City/[facility]/ZIP Co de Phone Number [facility] [address] * Cytomegalovirus (CMV) PCR (01/27/2025 8:20 PM EDT) CMV DNA Qnt Not Detected IU/mL 01/29/2025 12:09 PM EDT [facility] Comment:Test methodology for CMV DNA quantification is an FDA-approved nucleic acid amplification assay. The Lower Limit of Quantitation (LLOQ) and Limit of Detection (LoD) for EDTA plasma is 34.5 IU/mL. The linear range of the assay is 34.5- 10,000,000 IU/mL. The reference range is Not Detected. Log10 CMV Qn DNA PI See Note log 10 IU/mL 01/29/2025 12:09 PM EDT [facility] Comment:CMV DNA not detected Plasma 01/27/2025 8:20 PM EDT 01/27/2025 9:49 PM EDT Shelby Blanco MD LAB BLOOD ORDERABLES Final Resul t [facility] [address] * Aspergillus Ag (01/27/2025 8:20 PM EDT) Aspergillus Ag. 0.03 0.00 - 0.49 Index 01/30/2025 5:54 PM EDT [facility] Serum SERUM SPECIMEN / Unknown 01/27/2025 8:20 PM EDT 01/31/2025 4:23 AM EDT Comment:S us Shelby Blanco MD BODY FLUIDS AND STOOLS ORDERABLE S Final Result [facility] [address] [place] [address]. [address] * Blood culture-Peripheral (Blood) (01/27/2025 8:20 PM EDT) Culture Result No Growth After 5 Days [facility] Blood BLOOD SPECIMEN / Unknown 01/27/2025 8:20 PM EDT 01/27/2025 9:57 PM EDT us Pamela JACOME MICROBIOLOGY - GENERAL ORDERAB LES Final Result Performing Organization Address City/[facility] Co de Phone Number [address] * Blood culture-Peripheral (Blood) (01/27/2025 8:20 PM EDT) Culture Result No Growth After 5 Days [facility] Blood BLOOD SPECIMEN / Unknown 01/27/2025 8:20 PM EDT 01/27/2025 9:58 PM EDT Pamela JACOME MICROBIOLOGY - GENERAL ORDERAB LES Final Result Performing Organization Address City/[facility] Co de Phone Number [address] * (ABNORMAL) Lipase (01/27/2025 8:20 PM EDT) Lipase 3(L) 4 - 82 U/L 01/27/2025 9:0 3 PM EDT [facility] Plasma 01/27/2025 8:20 PM EDT 01/27/2025 8:34 PM EDT Pamela JACOME LAB BLOOD ORDERABLES Final Res ult [facility] [address] [facility]. [address] * Hepatic Function Panel (01/27/2025 8:20 PM EDT) Total Bilirubin 0.9 0.0 - 1.5 mg/dL 01/27/2025 9:03 PM EDT [facility] Bilirubin, Direct 0.1 0.0 - 0.4 mg/dL 01/27/2025 9:03 PM EDT [facility] AST 20 13 - 39 U/L 01/27/2025 9:03 PM EDT [facility] ALT 26 7 - 52 U/L 01/27/2025 9:03 PM EDT [facility] Alkaline Phosphatase 55 36 - 125 U/L 01/27/2025 9:03 PM EDT [facility] Total Protein 7.0 6.4 - 8.9 g/dL 01/27/2025 9:03 PM EDT [facility] Albumin 5.0 3.5 - 5.7 g/dL 01/27/2025 9:03 PM EDT [facility] Bilirubin, Indirect 0.8 0.0 - 1.1 mg/dL 01/27/2025 9:03 PM EDT [facility] Plasma 01/27/2025 8:20 PM EDT 01/27/2025 8:34 PM EDT Pamela JACOME LAB BLOOD ORDERABLES Final Res ult [facility] [address] [facility]. [address] * (ABNORMAL) Differential (01/27/2025 8:20 PM EDT) Differential Comments See Note 01/27/2025 10:02 PM EDT [facility] Comment: _Platelets Appear Decreased _Platelet Morphology Normal Scan Result PERFORMED 01/27/2025 10:02 PM EDT [facility] Neutrophils Relative 50.9 40.0 - 80.0 % 01/27/2025 10:02 PM EDT [facility] Lymphocytes Relative 39.0 15.0 - 45.0 % 01/27/2025 10:02 PM EDT [facility] Monocytes Relative 7.3 0.0 - 12.0 % 01/27/2025 10:02 PM EDT [facility] Eosinophils Relative 1.3 0.0 - 8.0 % 01/27/2025 10:02 PM EDT [facility] Basophils Relative 1.5(H) 0.0 - 1.0 % 01/27/2025 10:02 PM EDT [facility] nRBC 1(H) 0 - 0 /100 WBC 01/27/2025 10:02 PM EDT [facility] Neutrophils Absolute 1,018(L) 1,520 - 8,640 /uL 01/27/2025 10:02 PM EDT [facility] Lymphocytes Absolute 780 570 - 4,860 /uL 01/27/2025 10:02 PM EDT [facility] Monocytes Absolute 146 0 - 1,296 /uL 01/27/2025 10:02 PM EDT [facility] Eosinophils Absolute 26 0 - 864 /uL 01/27/2025 10:02 PM EDT [facility] Basophils Absolute 30 0 - 108 /uL 01/27/2025 10:02 PM EDT [facility] PLT Morphology Platelet morphology appears normal 01/27/2025 10:02 PM EDT [facility] Whole Blood 01/27/2025 8:20 PM EDT 01/27/2025 8:57 PM EDT us Pamela JACOME LAB BLOOD ORDERABLES Final Res ult [facility] [address] [place] [address], [facility] * (ABNORMAL) CBC (01/27/2025 8:20 PM EDT) WBC 2.0(L) 3.8 - 10.8 10E3/uL 01/27/2025 10:02 PM EDT [facility] RBC 3.81(L) 4.20 - 5.80 10E6/uL 01/27/2025 10:02 PM EDT [facility] Hemoglobin 12.7(L) 13.2 - 17.1 g/dL 01/27/2025 10:02 PM EDT [facility] Hematocrit 35.1(L) 38.5 - 50.0 % 01/27/2025 10:02 PM EDT [facility] MCV 92.2 80.0 - 100.0 fL 01/27/2025 10:02 PM EDT [facility] MCH 33.3(H) 27.0 - 33.0 pg 01/27/2025 10:02 PM EDT [facility] MCHC 36.1(H) 32.0 - 36.0 g/dL 01/27/2025 10:02 PM EDT [facility] RDW 14.7 11.0 - 15.0 % 01/27/2025 10:02 PM EDT [facility] Platelets 109(L) 140 - 400 10E3/uL 01/27/2025 10:02 PM EDT [facility] Platelet Estimate Decreased 01/27/2025 10:02 PM EDT [facility] MPV 6.4(L) 7.5 - 11.5 fL 01/27/2025 10:02 PM EDT [facility] Whole Blood 01/27/2025 8:20 PM EDT 01/27/2025 8:57 PM EDT Narrative [facility] - 01/27/2025 10:02 PM EDT Peripheral blood smear was scanned per review criteria approved by the laboratory medical affairs manager. us Pamela JACOME LAB BLOOD ORDERABLES Final Res ult [facility] [address] [place] [address], [facility] * Hemoglobin A1c (01/27/2025 8:20 PM EDT) Hemoglobin A1C 4.0 4.0 - 5.6 % 01/27/2025 11:49 PM EDT [facility] Comment: Hemoglobin A1c Interpretation [...] PM EDT 01/27/2025 8:57 PM EDT Narrative [facility] - 01/27/2025 11:49 PM EDT A1C project?->Yes us Pamela JACOME LAB BLOOD ORDERABLES Final Res ult [facility] [address] [facility] [place] [address], [facility] * Basic metabolic panel (01/27/2025 8:20 PM EDT) Sodium 136 133 - 146 mmol/L 01/27/2025 9:03 PM EDT [facility] Potassium 4.0 3.5 - 5.3 mmol/L 01/27/2025 9:03 PM EDT [facility] Chloride 100 98 - 110 mmol/L 01/27/2025 9:03 PM EDT [facility] CO2 25 21 - 33 mmol/L 01/27/2025 9:03 PM EDT [facility] Anion Gap 11 3 - 16 mmol/L 01/27/2025 9:03 PM EDT [facility] BUN 16 7 - 25 mg/dL 01/27/2025 9:03 PM EDT [facility] Creatinine 1.02 0.60 - 1.30 mg/dL 01/27/2025 9:03 PM EDT [facility] Glucose 93 70 - 100 mg/dL 01/27/2025 9:03 PM EDT [facility] Calcium 9.7 8.6 - 10.3 mg/dL 01/27/2025 9:03 PM EDT [facility] Osmolality, Calculated 283 278 - 305 mOsm/kg 01/27/2025 9:03 PM EDT [facility] EGFR >90 01/27/2025 9:03 PM EDT [facility] Comment: As of 2021, [...] JACOME LAB BLOOD ORDERABLES Final Res ult [facility] [address] [place] [address], [facility] * X-ray Chest PA and Lateral (01/27/2025 [...] Diarrhea of presumed infectious origin- Primary Immunosuppression ([facility]) documented in this encounter Administered Medications [...] Sun01/28/25 at 1300 1554 (Given - Provider: Meyr Sullivan RN)2318 (Given - Provider: Darrius Hahn [...] Vilchis RN)0907 (Given - Provider: Gladis Tello RN)195 (Given [...] ЮЛИЯ)1235 (Given - Provider: Elba Vargas RN) heparin [...] Comment: neck)2041 (Patch Removed - Provider: Darrius Hahn, ЮЛИЯ) 09 (Not Given - Provider: Gladis Tello RN - Reason: Patient/family refused) 0935 (Not Given - Provider: Elba Vargas RN - Reason: Patient/family refused) magnesium sulfate in sterile water 100 mL IVPB 4 g (COMPLETED)(Linked Group 1) 4 g, Intravenous, at 25 mL/hr, Once, On Sun01/28/25 at 1100, For 1 dose 1229 (New Bag - Provider: Mery Sullivan, ЮЛИЯ) magnesium sulfate in sterile water 100 mL [...] Marixa Mock RN)0823 (Given - Provider: Mery Sullivan, ЮЛИЯ)1554 (Given - Provider: Mery Sullivan RN)2318 (Given [...] 0907 (Given - Provider: Gladis Tello, ЮЛИЯ) 0933 (Given - Provider: Elba Vargas [...] Tello, ЮЛИЯ) 0621 (Given - Provider: Vandana Vilchis, ЮЛИЯ) tacrolimus (PROGRAF) capsule 5 mg (CANCELED) [...] Provider: Marixa Mock RN)0822 (Stopped - Provider: Meyr Sullivan RN) electrolyte-R (pH 7.4) (NORMOSOL-R pH 7.4) IV solution (CANCELED) 75 mL/hr, Intravenous, Continuous, Starting on Sun01/29/25 at 1230 1532 (New Bag - Provider: Gladis Tello RN) 0036 (New Bag - Provider: Vandana Vilchis [...] as of this encounter Care Teams Electronic Prepress Technician Relationship Specialty Start Date End Date Enedina Mcguire NP [address] [place] [id number] PCP - General Internal Medicine 10/05/24 Maureen Pantoja, ЮЛИЯ Txp Post Coordinator Transplant Hepatology 10/28/24 documented as of this encounter
--- OUTSIDE RECORDS SUMMARY | 2025-02-03 09:34 | XMS_ITS | Encounter Summary ---
Author Organization [facility] Address [address] [place] [address] Care Team Providers Care Business Asst Name Role Phone Enedina Mcguire NP Primary Care Provider + [phone] Maureen Pantoja RN Unavailable Unavail able Source [...] release of HIV test results or diagnoses. [id number] Health Encounter Details Date Type Department Care Team (Late st Contact Info) Description 12/03/2024 Chart Note [facility] Liver Transplant at [address] [place] [phone] Marlene Ro MA Social History Tobacco Use [...] Recorded In the past 12 months has [employer], gas, oil, or water [employer] threatened to shut off services in [...] 5.0 g/dL Blood Narrative Resulting Agency Comment [facility] Result [facility] Provider LAB BLOOD ORDERABLES Denisse l Result * Creatinine, urine, random (12/02/2024 8:01 AM EDT) Creatinine, Urine 48 Urine Narrative Resulting Agency Comment [facility] Result [facility] Provider URINE ORDERABLES Final Re sult * Urinalysis w/Rfl to Microscopic (12/02/2024 8:01 AM EDT) Glucose, UA Negative Negative Ketones, UA Negative Negative Blood, UA Negative Negative Bilirubin, UA Negative Negative Urobilinogen, UA Normal Normal Protein, UA Negative Negative Leukocyte Esterase, UA Negative Negative pH, UA 6.0 4.5 - 8.0 Specific [place], UA 1.010 1.005 - 1.030 Clarity, UA Clear Clear Color, UA Yellow Light Yellow, Yellow Urine Narrative Resulting Agency Comment [facility] Result [facility] Provider URINE [...] 6.0 10^3/mL Blood Narrative Resulting Agency Comment [facility] Provider LAB BLOOD ORDERABLES Ednisse l Result * Urine Protein, Tot, Random (w/o Creat) (12/02/2024 8:01 AM EDT) Total Protein, Ur 10.0 Urine Narrative Resulting Agency Comment [facility] Result [facility] Provider URINE ORDERABLES Final Re sult * (ABNORMAL) Hepatic Function Panel (12/02/2024 8:01 AM EDT) Bilirubin, Direct 0.5 Bilirubin, Indirect 0.2 Alkaline Phosphatase 109 U/L ALT 16 U/L AST 15 U/L Total Bilirubin 0.7 0.1 - 1.4 mg/dL Total Protein 6.0(A) 6.4 - 8.2 g/dL Plasma Narrative Resulting Agency Comment [facility] Result [facility] Provider LAB [...] as of this encounter Care Teams Business Asst Relationship Specialty Start Date End Date Enedina Mcguire NP [address] [place] [address] PCP - General Internal Medicine 10/05/24 Maureen Pantoja, RN Txp Post Coordinator Transplant Hepatology 10/28/24 documented as of this encounter
--- OUTSIDE RECORDS SUMMARY | 2025-02-03 09:35 | XMS_ITS | Encounter Summary ---
Author Organization [facility] Address [address] [place] [address] Care Team Providers Care Granite Setter Name Role Phone Enedina Mcguire NP Primary Care Provider + [phone] Maureen Pantoja RN Unavailable Unavail able Source [...] release of HIV test results or diagnoses. [id number] Reason for Visit * Reason Comments Results Encounter Details Date Type Department Care Team (Riky st Contact Info) Description 12/04/2024 Telephone [facility] Liver Transplant at [address] [phone] Maureen Pantoja, RN Results Social [...] In the past 12 months has e [employer], gas, oil, or water [employer] threatened to shut off services in [...] 7.5 Patient to repeat labs tomorrow at [facility] Lab prior to Liver and [...] documented as of this encounter Care Teams Granite Setter Relationship Specialty Start Date End Date Enedina Mcguire NP [address] [place] [address] PCP - General Internal Medicine 10/05/24 Maureen Pantoja, RN Txp Post Coordinator Transplant Hepatology 10/28/24 documented as of this encounter
--- OUTSIDE RECORDS SUMMARY | 2025-02-03 09:35 | XMS_ITS | Encounter Summary ---
Author Organization [facility] Address [address] [place] [address] Care Team Providers Care Cotton Baler Name Role Phone Enedina Mcguire NP Primary Care Provider + [phone] Maureen Pantoja RN Unavailable Unavail able Source [...] release of HIV test results or diagnoses. [id number] Reason for Visit * Reason Comments Results Encounter Details Date Type Department Care Team (Riky st Contact Info) Description 01/09/2025 Telephone [facility] Liver Transplant at [address] [phone] Marisela Martinez MA Results Social [...] In the past 12 months has e [employer], gas, oil, or water [employer] threatened to shut off services in [...] results so Txp MA can enter into [employer] and RN Txp Coordinator can review. Patient was asked by Kidney Txp Provider to repeat labs today to check magnesium level. Will await all results. * Marisela Martinez MA - 01/09/2025 1:37 PM EDT Pts outpt lab [facility] called with a critical lab [...] documented as of this encounter Care Teams Cotton Baler Relationship Specialty Start Date End Date Enedina Mcguire NP [address] [place] [address] PCP - General Internal Medicine 10/05/24 Maureen Pantoja, RN Txp Post Coordinator Transplant Hepatology 10/28/24 documented as of this encounter
--- OUTSIDE RECORDS SUMMARY | 2025-02-03 09:35 | XMS_ITS | Encounter Summary ---
Author Organization [facility] Address [address] [place] [address] Care Team Providers Care Mortising Machine Operator Name Role Phone Enedina Mcguire NP Primary Care Provider + [phone] Maureen Pantoja RN Unavailable Unavail able Source [...] release of HIV test results or diagnoses. [id number] Reason for Visit * Reason Comments Critical Lab Results Encounter Details Date Type Department Care Team (Late st Contact Info) Description 01/05/2025 Telephone [facility] Liver Transplant at [address] [place] [phone] Marisela Martinez MA Critical Lab Results [...] In the past 12 months has e [employer], gas, oil, or water [employer] threatened to shut off services in your [...] - 01/05/2025 11:15 AM EDT Lizeth from [facility] Lab called to report a critical [...] documented as of this encounter Care Teams Mortising Machine Operator Relationship Specialty Start Date End Date Enedina Mcguire NP [address] [place] [address] PCP - General Internal Medicine 10/05/24 Maureen Pantoja, ЮЛИЯ Txp Post Coordinator Transplant Hepatology 10/28/24 documented as of this encounter
--- OUTSIDE RECORDS SUMMARY | 2025-02-03 09:35 | XMS_ITS | Encounter Summary ---
Author Organization [facility] Address [address] [place] [address] Care Team Providers Care Mortar Mixer Name Role Phone Enedina Mcguire NP Primary Care Provider + [phone] Maureen Pantoja RN Unavailable Unavail able Source [...] release of HIV test results or diagnoses. [id number] Health Encounter Details Date Type Department Care Team (Late st Contact Info) Description 01/06/2025 Social Work [facility] Liver Transplant at [address] [place] [phone] Kaylin Willard MSW Social History Tobacco Use [...] the past 12 months has [employer], gas, oil, or water [employer] threatened to shut off services in your [...] today. NUBIA Barros, [facility] Transplant Resident Athletic Trainer documented in this encounter Plan of Treatment [...] documented as of this encounter Care Teams Mortar Mixer Relationship Specialty Start Date End Date Enedina Mcguire NP [address] [place] [address] PCP - General Internal Medicine 10/05/24 Maureen Pantoja, ЮЛИЯ Txp Post Coordinator Transplant Hepatology 10/28/24 documented as of this encounter
--- OUTSIDE RECORDS SUMMARY | 2025-02-03 09:35 | XMS_ITS | Encounter Summary ---
Author Organization [facility] Address [address] [place] [address] Care Team Providers Care Supervising Chef Name Role Phone Enedina Mcguire NP Primary Care Provider + [phone] Maureen Pantoja RN Unavailable Unavail able Source [...] release of HIV test results or diagnoses. [id number] Health Encounter Details Date Type Department Care Team (Late st Contact Info) Description 01/09/2025 Chart Note [facility] Liver Transplant at [address] [place] [phone] Marlene oR MA 01/09 Labs entered from [facility] Social History Tobacco Use Types Packs/Day Years Used Date Smoking Tobacco: Former Cigarettes Smokeless Tobacco: Current Alcohol Use Standard Drinks/Week Comments Yes 0 (1 standard drink = 0.6 oz pure alcohol) History of alcohol abuse, reports no use in 3 week- typically endorses use as 4 glasses of wine a days Utilities Answer Date Recorded In the past 12 months has [employer], gas, oil, or water [employer] threatened to shut off services in your [...] 2:24 PM EDT 01/09 Labs entered from [facility] documented in this encounter Plan of Treatment [...] Magnesium 1.3(A) 1.6 - 2.4 mg/dL Plasma [facility] Provider MD LAB BLOOD ORDERABLES [...] 1.8 10^3/mL Blood Narrative Resulting Agency Comment [facility] LAB BLOOD ORDERABLES Denisse l Result * (ABNORMAL) Renal Function Panel w/o EGFR (01/09/2025 12:23 PM EDT) Glucose 108 BUN 20 CO2 23(A) 13 - 22 mmol/L Creatinine 0.90 Potassium 4.3 Sodium 138 Chloride 107 Phosphorus 4.4 2.5 - 4.9 mg/dL Calcium 10.1 EGFR 93 mg/dL Albumin 5.0 3.5 - 5.0 g/dL Blood Narrative Resulting Agency Comment [facility] LAB BLOOD ORDERABLES Denisse l Result * Creatinine, urine, random (01/09/2025 12:23 PM EDT) Creatinine, Urine 66 Urine Narrative Resulting Agency Comment [facility] Result [facility] Provider URINE ORDERABLES Final Re sult * Urinalysis w/Rfl to Microscopic (01/09/2025 12:23 PM EDT) Glucose, UA Negative Negative Ketones, UA Negative Negative Blood, UA Negative Negative Bilirubin, UA Negative Negative Urobilinogen, UA Normal Normal Protein, UA Negative Negative Leukocyte Esterase, UA Negative Negative pH, UA 6.0 4.5 - 8.0 Specific [place], UA 1.020 1.005 - 1.030 Clarity, UA Clear Clear Color, UA Yellow Light Yellow, Yellow Urine Narrative Resulting Agency Comment [facility] Result [facility] Provider URINE ORDERABLES Final Re sult * Urine Protein, Tot, Random (w/o Creat) (01/09/2025 12:23 PM EDT) Total Protein, Ur 15.0 Urine Narrative Resulting Agency Comment [facility] Result [facility] Provider URINE ORDERABLES Final Re sult * Hepatic Function Panel (01/09/2025 12:23 PM EDT) Bilirubin, Direct 0.4 Bilirubin, Indirect 0.6 Alkaline Phosphatase 57 ALT 13 AST 22 Total Bilirubin 1.0 Total Protein 7.3 Plasma Narrative Resulting Agency Comment [facility] Result [facility] Provider LAB BLOOD ORDERABLES Denisse l Result * Urine culture (01/06/2025 12:23 PM EDT) Urine Culture, Comprehensive no growth URINE SPECIMEN / Unknown Result [facility] Provider MICROBIOLOGY - GENERAL OR DERABLES Final Result documented in this encounter Visit Diagnoses Not on filedocumented in this encounter Additional Health Concerns 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
--- OUTSIDE RECORDS SUMMARY | 2025-02-03 09:35 | XMS_ITS | Encounter Summary ---
Author Organization [facility] Address [address] [place] [address] Care Team Providers Care Senior Java Software Developer Name Role Phone Enedina Mcguire NP Primary Care Provider + [phone] Maureen Pantoja RN Unavailable Unavail able Source [...] release of HIV test results or diagnoses. [id number] Reason for Visit * Reason Comments Results Encounter Details Date Type Department Care Team (Riky st Contact Info) Description 01/08/2025 Telephone Liver Transplant at [address] [phone] Maureen Pantoja, RN Results [...] In the past 12 months has e [employer], gas, oil, or water [employer] [...] as of this encounter Care Teams Senior Java Software Developer Relationship Specialty Start Date End Date Enedina Mcguire NP [address] [place] [address] PCP - General Internal Medicine 10/05/24 Maureen Pantoja RN Txp Post Coordinator Transplant Hepatology 10/28/24 documented as of this encounter
--- OUTSIDE RECORDS SUMMARY | 2025-02-03 09:35 | XMS_ITS | Encounter Summary ---
Author Organization [facility] Address [address] [place] [address] Care Team Providers Care Cycling Instructor Name Role Phone Enedina Mcguire NP Primary Care Provider + [phone] Maureen Pantoja RN Unavailable Unavail able Source [...] release of HIV test results or diagnoses. [id number] Health Encounter Details Date Type Department Care Team (Late st Contact Info) Description 01/05/2025 Chart Note [facility] Liver Transplant at [address] [place] [phone] Marlene Ro MA 01/05 Labs entered from [facility] Social History Tobacco Use Types Packs/Day Years Used Date Smoking Tobacco: Former Cigarettes Smokeless Tobacco: Current Alcohol Use Standard Drinks/Week Comments Yes 0 (1 standard drink = 0.6 oz pure alcohol) History of alcohol abuse, reports no use in 3 week- typically endorses use as 4 glasses of wine a days Utilities Answer Date Recorded In the past 12 months has [employer], gas, oil, or water [employer] threatened to shut off services in your [...] were not included. 01/05 Labs entered from [facility] documented in this encounter Plan of Treatment [...] PCR, Blood (01/05/2025 9:27 AM EDT) Pathologist [facility] BK Virus Quant PCR PL Negative Plasma Result [facility] LAB BLOOD ORDERABLES Denisse l Result * Urine culture (01/05/2025 9:27 AM EDT) Pathologist [facility] Urine Culture, Comprehensive no growth URINE SPECIMEN / Unknown Result [facility] MICROBIOLOGY - GENERAL OR DERABLES Final Result * (ABNORMAL) Magnesium (01/05/2025 9:27 AM EDT) [facility] Magnesium 1.0(A) 1.6 - 2.4 mg/dL Plasma Narrative Resulting Agency Comment Kev Downey Result [facility] LAB BLOOD ORDERABLES Denisse l Result * (ABNORMAL) Renal Function Panel w/o EGFR (01/05/2025 9:27 AM EDT) [facility] Glucose 98 BUN 19 CO2 29(A) 13 - 22 mmol/L Creatinine 1.10 Potassium 4.0 Sodium 140 Chloride 101 Phosphorus 5.4(A) 2.5 - 4.9 mg/dL Calcium 9.7 EGFR 89 mg/dL Albumin 4.8 3.5 - 5.0 g/dL Blood Narrative Resulting Agency Comment Kev Downey Result [facility] LAB BLOOD ORDERABLES Denisse l Result * Creatinine, urine, random (01/05/2025 9:27 AM EDT) Pathologist [facility] Creatinine, Urine 80 Urine Narrative Resulting Agency Comment Kev [facility] Result [facility] URINE ORDERABLES Final Re sult * Urinalysis w/Rfl to Microscopic (01/05/2025 9:27 AM EDT) Pathologist [facility] Glucose, UA Negative Negative Ketones, UA Negative Negative Blood, UA Negative Negative Bilirubin, UA Negative Negative Urobilinogen, UA Normal Normal Protein, UA Negative Negative Nitrite, UA Negative Negative pH, UA 6.0 4.5 - 8.0 Specific [place], UA 1.015 1.005 - 1.030 Clarity, UA Clear Clear Color, UA Yellow Light Yellow, Yellow Urine Narrative Resulting Agency Comment [facility] Result [facility] Provider URINE ORDERABLES Final Re sult * (ABNORMAL) CBC and differential (01/05/2025 9:27 AM EDT) [facility] Hemoglobin 11.9(A) 13.5 - 17.5 g/dL [...] 10^3/mL Blood Narrative Resulting Agency Comment Kev [facility] Result [facility] Provider LAB BLOOD ORDERABLES Denisse l Result * Urine Protein, Tot, Random (w/o Creat) (01/05/2025 9:27 AM EDT) [facility] Total Protein, Ur 21.0 Urine Narrative Resulting Agency Comment [facility] Result [facility] Provider URINE ORDERABLES Final Re sult [...] documented as of this encounter Care Teams Cycling Instructor Relationship Specialty Start Date End Date Enedina Mcguire NP [address] [place] [address] PCP - General Internal Medicine 10/05/24 Maureen Pnatoja, RN Txp Post Coordinator Transplant Hepatology 10/28/24 documented as of this encounter
--- OUTSIDE RECORDS SUMMARY | 2025-02-03 09:36 | XMS_ITS | Encounter Summary ---
Author Organization [facility] Address [address] [place] [address] Care Team Providers Care Superintendent Production Name Role Phone Enedina Mcguire NP Primary Care Provider + [phone] Maureen Pantoja RN Unavailable Unavail able Source [...] release of HIV test results or diagnoses. [id number] Health Encounter Details Date Type Department Care Team (Late st Contact Info) Description 01/20/2025 Chart Note [facility] Liver Transplant at [address] [place] [phone] Marlene Ro MA 01/20 Labs entered from [facility] Social History Tobacco Use Types Packs/Day Years Used Date Smoking Tobacco: Former Cigarettes Smokeless Tobacco: Current Alcohol Use Standard Drinks/Week Comments Yes 0 (1 standard drink = 0.6 oz pure alcohol) History of alcohol abuse, reports no use in 3 week- typically endorses use as 4 glasses of wine a days Utilities Answer Date Recorded In the past 12 months has [employer], gas, oil, or water [employer] threatened to shut off services in your [...] URINE PROTEIN, TOTAL, RANDOM (W/O CREATININE) Routine 01/20/2025 12:03 PM EDT HEPATIC FUNCTION PANEL Routine 01/20/2025 12:03 PM EDT TACROLIMUS LEVEL Routine 01/20/2025 12:0 3 PM EDT CREATININE, URINE, RANDOM Routine 01/20/2025 12:03 PM EDT URINALYSIS W/RFL TO MICROSCOPIC Routine 01/20/2025 12:03 PM EDT CBC AND DIFFERENTIAL Routine 01/20/2025 12:03 PM EDT MAGNESIUM Routine 01/20/2025 12:03 PM EDT RENAL FUNCTION PANEL W/O EGFR Routine 01/20/2025 12:03 PM EDT documented in this encounter Results * Tacrolimus level (01/20/2025 12:03 PM EDT) Tacrolimus Lvl 11.3 6 - 15 ng/mL Whole Blood Historical Provider MD LAB BLOOD ORDERABLES Denisse l Result * (ABNORMAL) Magnesium (01/20/2025 12:03 PM EDT) Magnesium 1.1(A) 1.6 - 2.4 mg/dL Plasma Narrative Resulting Agency Comment [facility] Historical Provider MD LAB BLOOD ORDERABLES Denisse l Result * (ABNORMAL) Renal Function Panel w/o EGFR (01/20/2025 12:03 PM EDT) Glucose 101 BUN 14 CO2 23(A) 13 - 22 mmol/L Creatinine 1.10 Potassium 3.8 Sodium 141 Chloride 106 Phosphorus 4.2 2.5 - 4.9 mg/dL Calcium 10.2 EGFR 74 mg/dL Albumin 4.9 3.5 - 5.0 g/dL Blood Narrative Resulting Agency Comment [facility] Provider LAB BLOOD ORDERABLES Denisse l Result * Creatinine, urine, random (01/20/2025 12:03 PM EDT) Pathologist [facility] Creatinine, Urine 78 Urine Narrative Resulting Agency Comment [facility] Provider URINE ORDERABLES Final Re sult * (ABNORMAL) Urinalysis w/Rfl to Microscopic (01/20/2025 12:03 PM EDT) Pathologist [facility] Glucose, UA Negative Negative Ketones, UA Negative Negative Blood, UA Negative Negative Bilirubin, UA Negative Negative Urobilinogen, UA Normal Normal Protein, UA Trace(A) Negative Nitrite, UA Negative Negative pH, UA 5.5 4.5 - 8.0 Specific [place], UA 1.020 1.005 - 1.030 Clarity, UA Clear Clear Color, UA Yellow Light Yellow, Yellow Urine Narrative Resulting Agency Comment [facility] Provider URINE ORDERABLES Final Re sult * (ABNORMAL) CBC and differential (01/20/2025 12:03 PM EDT) Hemoglobin 12.5(A) 13.5 - 17.5 g/dL Hematocrit 35.9(A) 41 - 53 % RDW 14.0 11.5 - 14.5 % Lymphocytes Absolute 1.3 / L Monocytes Absolute 0.2 / L Eosinophils Absolute 0.0 / L Basophils Absolute 0.1 / L Neutrophils Relative 25.1(A) 46 - 78 % Lymphocytes Relative 57.1(A) 18 - 52 % Monocytes Relative 7.3 3 - 10 % Eosinophils Relative 1.4 0 - 6 % Basophils Relative 2.7 0 - 3 % Neutrophils Absolute 0.6 / L MCH 32.3 26.0 - 34.0 pg MCHC 34.8 30 - 37 g/dL MCV 92.8 82.0 - 108.0 fL Platelets 116 K/ L RBC 3.87(A) 4.50 - 5.90 10^6/ L WBC 2.2 10^3/mL Blood Narrative Resulting Agency Comment Kev [facility] Provider LAB BLOOD ORDERABLES Denisse l Result * Urine Protein, Tot, Random (w/o Creat) (01/20/2025 12:03 PM EDT) Total Protein, Ur 25.0 Urine Narrative Resulting Agency Comment [facility] Result [facility] Provider URINE ORDERABLES Final Re sult * Hepatic Function Panel (01/20/2025 12:03 PM EDT) Bilirubin, Direct 0.2 Bilirubin, Indirect 0.6 Alkaline Phosphatase 52 ALT 20 AST 28 Total Bilirubin 0.8 Total Protein 7.1 Plasma Narrative Resulting Agency Comment [facility] Result [facility] Provider LAB BLOOD ORDERABLES Denisse l [...] as of this encounter Care Teams Superintendent Production Relationship Specialty Start Date End Date Enedina Mcguire NP [address] [place] [address] PCP - General Internal Medicine 10/05/24 Maureen Pantoja, RN Txp Post Coordinator Transplant Hepatology 10/28/24 documented as of this encounter
--- OUTSIDE RECORDS SUMMARY | 2025-02-03 09:36 | XMS_ITS | Encounter Summary ---
Author Organization [facility] Address [address] [place] [address] Care Team Providers Care Engine Builder Name Role Phone Enedina Mcguire NP Primary Care Provider + [phone] Maureen Pantoja RN Unavailable Unavail able Source [...] release of HIV test results or diagnoses. [id number] Health Encounter Details Date Type Department Care Team (Late st Contact Info) Description 12/09/2024 Social Work [facility] Liver Transplant at [address] [place] [phone] Kaylin Willard MSW Social History Tobacco Use [...] Recorded In the past 12 months has [employer], gas, oil, or water [employer] threatened to shut off services in your [...] AM 11/25/2024 3:00 PM 12/10/2024 9:00 AM [id number] Score MAGALYS-7 Total Score 17 13 4 [...] post-transplant. He notes he meets with an BOND UNDERWRITER weekly and a counselor weekly through [facility]. He was agreeable to seeing transplant CD counselortoday as well. Of note, pharmacy notified transplant staff that patient also prescribed Tramadol by his pain clinic and is unable to release Naltrexone script at this time. SW to continue to follow. NUBIA Barros, [facility] Transplant Industrial Engineering Manager documented in this encounter Plan of [...] as of this encounter Care Teams Engine Builder Relationship Specialty Start Date End Date Enedina Mcguire NP [address] [place] [address] PCP - General Internal Medicine 10/05/24 Maureen Pantoja, RN Txp Post Coordinator Transplant Hepatology 10/28/24 documented as of this encounter
--- OUTSIDE RECORDS SUMMARY | 2025-02-03 09:36 | XMS_ITS | Encounter Summary ---
Author Organization [facility] Address [address] [place] [address] Care Team Providers Care Injection Molder Name Role Phone Jony Conde MD Primary Care Provider [phone] Lj Tapia LEGAL SPECIALIST Unavailable [phone] Enedina Mcguire LEGAL SPECIALIST Primary Care Provider + Nuria Fall VOTING MACHINE MECHANIC Unavailable Unavaila ble Encounter Details Date Type Department Care Team (Late st Contact Info) Description 07/03/2022 Orders Only External Location [address] [place] [address] Presley Montes De Oca MD [address] [place] [id number] Social History Tobacco Use Types Packs/Day Years [...] on filedocumented in this encounter Care Teams Injection Molder Relationship Specialty Start Date End Date Jony Conde MD [address] [place] [address] [address] [place] [address] PCP - General 07/18/22 12/03/22 Enedina Mcguire APRN [address] [place] [address] PCP - General 12/04/22 Lj Tapia APRN [facility] [place], [place] [id number] Referring Physician Gastroenterology 07/18/22 Nuria Fall LPN [facility] TCM Nurse 07/24/24 08/23/24 documented as of this encounter
--- OUTSIDE RECORDS SUMMARY | 2025-02-03 09:36 | XMS_ITS | Encounter Summary ---
Author Organization [facility] Address [address] [place] [address] Care Team Providers Care Tile Layer Supervisor Name Role Phone Enedina Mcguire APRN Primary Care Provider + Encounter Details Date Type Department Care Team ([facility] st Contact Info) Description 10/07/2024 Results Follow-Up [facility] [address] [place] [address] Enedina Mcguire APRN [address] [place], [place] [id number] Social History Tobacco Use Types Packs/Day Years [...] Recorded In the past 12 months has [employer], [employer], oil, or water [email or web address] threatened to shut off services in your [...] GED or equivalent No 07/09/2024 Preferred Language Costa Rican 07/09/2024 PHQ-2 Answer Date Recorded Patient Health [...] Description 04/02/2025 2:15 PM EST Office Visit [facility] PAIN [facility]NAGEMENT [address] [address] Vazquez Christie PA-C [address] [place] [address] documented as of this encounter Visit Diagnoses Not on filedocumented in this encounter Additional Health Concerns Assessment Noted Time PHQ-2 Depression Total Score: 1 12/31/19 24 3:25 PM EDT documented as of this encounter Care Teams Tile Layer Supervisor Relationship Specialty Start Date End Date Enedina Mcguire APRN [address] [place] [address] PCP - General Nurse Practitioner 10/27/24 documented as of this encounter
--- OUTSIDE RECORDS SUMMARY | 2025-02-03 09:36 | XMS_ITS | Encounter Summary ---
Author Organization [facility] Address [address] [place] [address] Care Team Providers Care Educational Resource Coordinator Name Role Phone Jony Conde MD Primary Care Provider [phone] Lj Tapia STUMMEL SELECTOR Unavailable [phone] Enedina Mcguire STUMMEL SELECTOR Primary Care Provider + Nuria Fall TORQUE TESTER Unavailable Unavaila ble Encounter Details Date Type Department Care Team (Late st Contact Info) Description 07/04/2022 Orders Only External Location [address] [place] [address] Presley Montes De Oca MD [address] [place] [id number] Social History Tobacco Use Types Packs/Day Years [...] on filedocumented in this encounter Care Teams Educational Resource Coordinator Relationship Specialty Start Date End Date Jony Conde MD [address] [facility] [address] [place] [address] PCP - General 07/18/22 12/03/22 Enedina Mcguire APRN [address] [place] [address] PCP - General 12/04/22 Lj Tapia APRN [address] [place] [address] Referring Physician Gastroenterology 07/18/22 Nuria Fall LPN [facility] TCM Nurse 07/24/24 08/23/24 documented as of this encounter
--- OUTSIDE RECORDS SUMMARY | 2025-02-03 09:36 | XMS_ITS | Encounter Summary ---
Author Organization [facility] Address [address] [place] [address] Care Team Providers Care Hub Borer Name Role Phone Enedina Mcguire NP Primary Care Provider + [phone] Maureen Pantoja RN Unavailable Unavail able Source [...] release of HIV test results or diagnoses. [id number] Reason for Visit * Reason Comments Results Encounter Details Date Type Department Care Team (Late st Contact Info) Description 01/23/2025 Telephone [facility] Liver Transplant at [address] [phone] Maureen Pantoja, RN Results [...] Recorded In the past 12 months has [employer], gas, oil, or water company threatened to [...] Progress Notes * Maureen Pantoja RN - 01/27/2025 4:04 PM EDT Received message from patient that he is on his way to [facility] ED. Message routed to Inpatient Txp Team. * Maureen Pantoja RN - 01/27/2025 2:28 PM EDT Reviewed with Dr. Alonzo who recommends that patient go to ED. Local [place], but would prefer [facility] to do full infectious work-up in context of febrile neutropenia. Spoke with patient again. Patient very reluctant to go to ED. Advised [place] to go to local hospital, but that he needs further testing to rule out infection and get treatment if needed. Patient agreeable to going to local hospital. Patient requested [employer] message stating what to tell [facility] ED. Message sent. * Maureen Pantoja RN - 01/27/2025 1:38 PM EDT Patient called to review symptoms. Reports feeling a bit better. Last dose of Tylenol was last night at 8 PM and temperature now is 97.7. Patient is drinking Pedialyte to stay hydrated and is able tokeep his medications down. Patient plans to go to lab tomorrow for standing blood work and will do stool studies as well. Will review all with Txp Provider. * Maureen Pantoja RN - 01/27/2025 10:25 AM EDT FK 11.3 Received [employer] message from patient's that patient began feeling unwell yesterday. Reports low grade fever that has improved with Tylenol as well as fatigue, headache, and diarrhea. COVID and flu tests both negative. Given symptoms and patient's ANC, advised that patient present to ED. Advised [place] to go to local ED since patient lives some distance away. * Maureen Pantoja RN - 01/23/2025 9:25 AM EDT Lab results from 01/20/25 reviewed. Mg 1.1 - Patient reports taking Slow-Mag 143 mg TID, though reports missing several doses mid-day. Encouraged to set alarm to not miss dose. Cr 1.10; BUN 14. LFTs stable. Alk phos 52, AST/ALT . FK pending. Will follow-up. WBC 2.2 (from 2.0) and ANC 600 (from 600). Current IS: FK 5 mg in AM and 6 mg in PM MMF 500 mg BID Prednisone 5 mg daily documented in this encounter Plan [...] documented as of this encounter Care Teams Hub Borer Relationship Specialty Start Date End Date Enedina Mcguire NP [address] [place] [address] PCP - General Internal Medicine 10/05/24 Maureen Pantoja, RN Txp Post Coordinator Transplant Hepatology 10/28/24 documented as of this encounter
--- OUTSIDE RECORDS SUMMARY | 2025-02-03 09:36 | XMS_ITS | Encounter Summary ---
Author Organization [facility] Address [address] [place] [address] Care Team Providers Care Bone Puller Name Role Phone Enedina Mcguire NP Primary Care Provider + [phone] Maureen Pantoja RN Unavailable Unavail able Source [...] release of HIV test results or diagnoses. [id number] Health Encounter Details Date Type Department Care Team (Late st Contact Info) Description 01/27/2025 Telephone [facility] Liver Transplant at [address] [phone] Marlene Ro MA Social History [...] Recorded In the past 12 months has [employer], gas, oil, or water [employer] threatened to shut off services in your [...] Progress Notes * Marlene Ro MA - 01/27/2025 11:28 AM EDT Called and spoke to Gladys, senior staff specialized employment land manager, and taran Rosario about his 1 time orders. We reviewed the orders and method for sending. All orders (CMV, BK, Stool Studies/C-Diff) have been faxed and confirmation was received. Patient was also provided a copy in . documented in this encounter Plan of Treatment [...] documented as of this encounter Care Teams Bone Puller Relationship Specialty Start Date End Date Enedina Mcguire NP [address] [place] [address] PCP - General Internal Medicine 10/05/24 Maureen Pantoja, RN Txp Post Coordinator Transplant Hepatology 10/28/24 documented as of this encounter
--- OUTSIDE RECORDS SUMMARY | 2025-02-03 09:36 | XMS_ITS | Encounter Summary ---
Author Organization [facility] Address [address] [place] [address] Care Team Providers Care Plumbing Installer Name Role Phone Enedina Mcguire APRN Primary Care Provider + Reason for Visit * Reason Comments Med Refill Encounter Details Date Type Department Care Team (Late st Contact Info) Description 07/20/2022 Refill [facility] GASTROENTEROLOGY [address] [facility] [address] [place] [address] Lj Tapia APRN [address] [place] [address] Secondary esophageal varices without bleeding Social History [...] or training? Not on file Preferred Language Prydeinig 07/03/2022 Sex and Gender Information Value Date Recorded Sex Assigned at Male 08/20/2024 8:28 PM EDT Legal Sex Male 7:45 AM EDT Gender Identity Not on file Sexual Orientation Not on file documented as of this encounter Plan of Treatment Upcoming Encounters Date Type Department Care Team (Late st Contact Info) Description 04/02/2025 2:15 PM EST Office Visit [facility] PAIN [facility]EMENT [address] [address] Vazquez Christie PA-C [address] [place] [address] documented as of this encounter Visit Diagnoses Diagnosis Secondary esophageal varices without bleeding documented in this encounter Additional Health Concerns Infection Onset Date Last Indicated Resolved Time COVID Screen (preop/placement) 07/28/2022 07/28/2022 07/29/2022 12:00 AM EDT documented as of this encounter Care Teams Plumbing Installer Relationship Specialty Start Date End Date Enedina Mcguire APRN [address] [place] [address] PCP - General Nurse Practitioner 10/27/24 documented as of this encounter
--- OUTSIDE RECORDS SUMMARY | 2025-02-03 09:36 | XMS_ITS | Clinical Summary ---
Author Organization Healthcare Address [address] [place] [address] Care Team Providers Care Supplemental Manager Name Role Phone Lj Tapia Rohini RICKS Unavailable [phone] Enedina Mcguire APRN Primary Care Provider + [...] 03/19/2024 Liver disease 03/19/2024 Overview (03/19/2024): cirrhosis Sleep apnea 03/19/2024 Overview (03/19/2024): not in use reg. comes off at night Bleeding external hemorrhoids 01/31/2024 Acute hemorrhoid 01/30/2024 Hyperbilirubinemia 11/14/2023 Alcohol use disorder, severe, dependence 024 Cirrhosis with alcoholism 11/14/2023 Tobacco use disorder 03/07/2023 Alcoholic cirrhosis of liver without ascites Alcohol abuse 12/03/2022 Esophageal varices in cirrhosis 12/03/2022 GI (gastrointestinal bleed) 06/14/2022 Resolved Problems Problem Noted Date Diagnosed Date Resolved Date Motion sickness 03/19/2024 02/01/2025 Overview (03/19/2024): boat NADIYA (acute kidney injury) 08/30/2022 Encounters Date Type Department Care Team Description 11/27/2024 Telephone [facility]ph[facility], Bone [facility] Mineral Metabolism [address] [facility], [address] [place] [address] Chelsy Villanueva from Last 3 [...] answer 07/14/2024 How often do you attend [facility] or mormon services? Patient unable to answer 07/14/2024 Do you belong to any clubs o r organizations such as jainism groups, unions, fraternal or athletic groups, or [...] Recorded Patient Health Questionnaire-2 Score 2 09/29/2024 [facility] - Occupational Stress Questionnaire Answer Date Recorded [...] unable to access Not on file 07/19/2024 Cage max number of drinks Not on file 2024 Cage Beverages a week Not on file 07/19/2024 Have you ever felt you should CUT down on your d rinking? 1 07/19/2024 Have you been ANNOYED by people criticizing your drinking? 0 07/19/2024 Have you felt GUILTY about your drinking? 1 07/19/2024 Have you had a drink first t deborah in the morning (EYE-FUNERAL PRE ARRANGEMENT COUNSELOR) to steady your nerves or to get [...] 2 - 13+ 2-dose series) 10/11/2010 09/13/2010 [id number] Vaccine ( - 2024- season) 2025 03/17/2021, [...] this topic Medical Devices Implanted Type Area Drum Printer Device Identifier Shelf Expiration Date Model / Serial / Lot Concerto Croton Coil-07/03/2022 Implanted:06/15 by Timmy Brunner MD (Quantity not on file) Coil Abdomen Description:Multiple Coil Co ncerto Pgla Croton Detach COILS implanted on 07/03/2022 by Timmy Brunner MD at [facility]--info can be found in Care Everywhere for [facility] as of 11/15/23 Dona Coil-07/03/2022 Implanted:06/15 by Timmy Brunner MD (Quantity not on file) Coil Abdomen [employer] Description:Coil Emb Dona 3.7/Implanted: Qty: 1 on 07/03/2022 by Timmy Brunner MD at [facility] Plate Plate N/A: Neck Plug Vasc Anton Emb Amplatzer Implanted:06/15 by Timmy Brunner MD (Quantity not on file) Plug Other Vein / / [id number] Description:Plug Vasc Anton Em b Ampltz .027 [id number] - [id number] Implanted: Qty: 1 on 07/03/2022 by Timmy Brunner MD at [facility] Stent Gastro Panc 5fr 5cm - [id number] Implanted:Qty: 1 on 11/20/2023 by Devang Mcghee, ЮЛИЯ at [facility] Pancreas [employer]-[id number] 08/13/2026 [id number] / / [id number] Procedures Procedure Name Priority Date/Time Associated Diagnosis [...] ORDERA BLES Final Result Performing Organization Address City/[facility]/ZIP Co de Phone Number [facility] [address] [place] [address] * Hepatitis C Antibody (07/14/2024 4:31 PM EST) Hepatitis C Antibody Negative Negative 07/14/2024 5:27 PM EST [facility] Blood Venous blood specimen / Unknown Venipuncture / Unknown 07/14/2024 4:31 PM EST 07/14/2024 4:54 PM EST Laureano Salinas APRN, DNP LAB BLOOD ORDERA BLES Final Result Performing Organization Address City/[facility] Co de Phone Number [facility] [address] [place] [address] from Last 3 Months or Most Recently Relevant to [place] [address] [place] [address] [facility] Advance Directives * Full Code (Latest Code Status on File) Date Activated Date Inactivated Comments 07/11/2024 11:04 PM 07/23/2024 6:27 PM Question Answer Comments Patient has decision-making capacity? Yes * Full Code Date Activated Date Inactivated Comments 11/14/2023 10:15 PM 11/27/2023 9:08 PM Question Answer Comments Patient has decision-making capacity? Yes Care Teams Supplemental Manager Relationship Specialty Start Date End Date Enedina Mcguire APRN [address] [place] [address] PCP - General 12/04/[address] [facility] [place] [address] Referring Physician Gastroenterology 07/18/22
--- OUTSIDE RECORDS SUMMARY | 2025-02-03 09:36 | XMS_ITS | Encounter Summary ---
[facility] Address [address] [place] [address] Care Team Providers Care Pharmacy Services Director Name Role Phone Enedina Mcguire APRN Primary Care Provider + Reason for Visit * Reason Comments Med Refill Encounter Details Date Type Department Care Team (Late st Contact Info) Description 09/12/2022 Refill [facility] GASTROENTEROLOGY [address] [facility] [address] [place] [address] Lj Tapia APRN [address] [place] [address] Social History Tobacco Use Types Packs/Day Years [...] or training? Not on file Preferred Language Swiss 07/03/2022 Sex and Gender Information Value Date Recorded Sex Assigned at Male 08/20/2024 8:28 PM EDT Legal Sex Male 7:45 AM EDT Gender Identity Not on file Sexual Orientation Not on file documented as of this encounter Plan of Treatment Upcoming Encounters Date Type Department Care Team (Late st Contact Info) Description 04/02/2025 2:15 PM EST Office Visit [facility] [address] [address] Vazquez Christie PA-C [address] [place] [address] documented as of this encounter Visit Diagnoses Not on filedocumented in this encounter Care Teams Pharmacy Services Director Relationship Specialty Start Date End Date Enedina Mcguire APRN [address] [place] [address] PCP - General Nurse Practitioner 10/27/24 documented as of this encounter
--- OUTSIDE RECORDS SUMMARY | 2025-02-03 09:36 | XMS_ITS | Encounter Summary ---
Author Organization [facility] Address [address] [place] [address] Care Team Providers Care Relief Operator Name Role Phone Enedina Mcguire APRN Primary Care Provider + Encounter Details Date Type Department Care Team (Late st Contact Info) Description 12/05/2024 Telephone [facility] PAIN [facility]NAGEMENT [address] [address] Vazquez Christie PA-C [address] [place] [address] Social History Tobacco Use Types Packs/Day Years [...] Recorded In the past 12 months has [employer], [employer], oil, or water [employer] threatened to shut off services in your [...] Score 0 10/02/2022 [facility] - Occupational Stress Questionnaire Answer Date [...] equivalent No 07/09/2024 Preferred Language Citizen Of [place] 07/09/2024 PHQ-2 Answer Date Recorded Patient Health [...] Upcoming Encounters Date Type Department Care Team ([facility] st Contact Info) Description 04/02/2025 2:15 PM EST Office Visit [facility]EMENT [address] [facility] [address] [place] [address] Vazquez Christie PA-C [address] [facility] [address] [place] [address] documented as of this encounter Visit Diagnoses Not on filedocumented in this encounter Additional Health Concerns Assessment Noted Time PHQ-2 Depression Total Score: 1 12/31/19 24 3:25 PM EDT documented as of this encounter Care Teams Relief Operator Relationship Specialty Start Date End Date Enedina Mcguire APRN [address] [place] [address] PCP - General Nurse Practitioner 10/27/24 documented as of this encounter
--- OUTSIDE RECORDS SUMMARY | 2025-02-03 09:36 | XMS_ITS | Encounter Summary ---
Author Organization Healthcare Address [address] [place] [address] Care Team Providers Care Refrigeration Installer Name Role Phone Jony Conde MD Primary Care Provider [phone] Lj Tapia SUPERVISOR SHRIMP POND Unavailable [phone] Enedina Mcguire SUPERVISOR SHRIMP POND Primary Care Provider + Nuria Fall AEROSOL SUPERVISOR Unavailable Unavaila ble Encounter Details Date Type Department Care Team (Late st Contact Info) Description 07/04/2022 Orders Only External Location [address] [place] [address] Presley Montes De Oca MD [address] [place] [id number] Social History Tobacco Use Types Packs/Day Years [...] on filedocumented in this encounter Care Teams Refrigeration Installer Relationship Specialty Start Date End Date Jony Coned MD [address] [place] [address] [address] [place], [place] [id number] PCP - General 07/18/22 12/03/22 Enedina Mcguire APRN [address] [place] [address] PCP - General 12/04/22 Lj Tapia APRN [address] [place] [address] [id number] Referring Physician Gastroenterology 07/18/22 Nuria Fall LPN [facility] TCM Nurse 07/24/24 08/23/24 documented as of this encounter
--- OUTSIDE RECORDS SUMMARY | 2025-02-03 09:36 | XMS_ITS | Encounter Summary ---
Author Organization [facility] Address [address] [place] [address] Care Team Providers Care Salon Professional Name Role Phone Enedina Mcguire NP Primary Care Provider + [phone] Maureen Pantoja RN Unavailable Unavail able Source [...] release of HIV test results or diagnoses. [id number] Reason for Visit * Reason Onset Date Comments Medication Refill 01/21/2025 Encounter Details Date Type Department Care Team (Late st Contact Info) Description 01/21/2025 Refill [facility] Liver Transplant at [place] [address] [place] [address] Lydia Sanchez MD [address] [place] [address] Liver/[place] [address] Encounter for therapeutic drug monitoring; S/P liver transplant ([facility]); Hypomagnesemia; Kidney transplant recipient; Hypertension, unspecified [...] as of this encounter Progress Notes * Vivi Puckett RN - 01/21/2025 1:54 PM EDT Refill request received. Prescription confirmed as current dose and the following were reviewed: Last appointment: 01/06/2025 Leisa Juarez MD Next appointment: 02/03/2025 [facility] Last labs: Lab Results Component Value Date CREATININE 1.10 01/20/2025 Gabapentin 100 mg TID Per last clinic visit with dr. Juarez on 01-06-2025 This RN will forward to the liver team d/t pt is a liver kidney txp patient documented in this encounter Plan of Treatment Not on file documented as of this encounter Visit Diagnoses Diagnosis Encounter for therapeutic drug monitoring S/P liver transplant ([facility]) Hypomagnesemia Disorders of magnesium metabolism Kidney [...] documented as of this encounter Care Teams Salon Professional Relationship Specialty Start Date End Date Enednia Mcguire NP [address] [place] [address] PCP - General Internal Medicine 10/05/24 Maureen Pantoja RN Txp Post Coordinator Transplant Hepatology 10/28/24 documented as of this encounter
--- OUTSIDE RECORDS SUMMARY | 2025-02-03 09:36 | XMS_ITS | Encounter Summary ---
Author Organization [facility] Address [address] [place] [address] Care Team Providers Care Cell Installer Name Role Phone Enedina Mcguire NP Primary Care Provider + [phone] Maureen Pantoja RN Unavailable Unavail able Source [...] release of HIV test results or diagnoses. [id number] Health Encounter Details Date Type Department Care Team (Late st Contact Info) Description 12/09/[address] [facility] Liver Transplant at [address] [place] [address] Mitzy Gill MA Social History Tobacco [...] In the past 12 months has [employer], gas, oil, or water company threatened to [...] call pharmacy with update. Patient notified via [email or web address] outdoors. * Mitzy Gill MA - 12/10/2024 10:09 [...] I stated we received a call from [facility] stating he picked up a tramadol prescription on 12/05 and there is an issue with him having naltrexone prescribed as well. Per CC ЮЛИЯ Reddy, Pt cannot have naltrexone filled while actively taking tramadol. Spoke to Kirt at [facility] and advised him not to fill naltrexone prescription and to file it. I advised him we have reached out to the Pt to discuss. iKrt verbalized understanding and states they will not [...] - 12/09/2024 12:41 PM EDT Kirt from [facility] states they received a [...] as of this encounter Care Teams Cell Installer Relationship Specialty Start Date End Date Enedina Mcguire NP [address] [place] [address] PCP - General Internal Medicine 10/05/24 Maureen Pantoja, ЮЛИЯ Txp Post Coordinator Transplant Hepatology 10/28/24 documented as of this encounter
--- OUTSIDE RECORDS SUMMARY | 2025-02-03 09:36 | XMS_ITS | Encounter Summary ---
Author Organization Healthcare Address [address] [place] [address] Care Team Providers Care Manager Agriculture Name Role Phone Jony Conde MD Primary Care Provider [phone] Lj Tapia COLLEGE ADVISOR Unavailable [phone] Enedina Mcguire APRN Primary Care Provider + Nuria Fall MEDIA PRODUCER Unavailable Unavaila ble Encounter Details Date Type Department Care Team (Late st Contact Info) Description 07/02/2022 Orders Only External Location [address] [place] [address] Provider, External Social History Tobacco Use Types [...] on filedocumented in this encounter Care Teams Manager Agriculture Relationship Specialty Start Date End Date Jony Conde MD [address] [facility] [address] [place], [place] [id number] PCP - General 07/18/22 12/03/22 Enedina Mcguire APRN [address] [place] [address] PCP - General 12/04/22 Lj Tapia APRN [address] [place] [address] Referring Physician Gastroenterology 07/18/22 Nuria Fall LPN [facility] TCM Nurse 07/24/24 08/23/24 documented as of this encounter
--- OUTSIDE RECORDS SUMMARY | 2025-02-03 09:36 | XMS_ITS | Encounter Summary ---
Author Organization [facility] Address [address] [place] [address] Care Team Providers Care Litigation Examiner Name Role Phone Enedina Mcguire NP Primary Care Provider + [phone] Maureen Pantoja RN Unavailable Unavail able Source [...] release of HIV test results or diagnoses. [id number] Health Encounter Details Date Type Department Care Team (Late st Contact Info) Description 12/09/2024 Chart Note [facility] Liver Transplant at [address] [place] [address] Marlene Ro MA Social History Tobacco Use [...] Recorded In the past 12 months has [employer], gas, oil, or water [employer] threatened to shut off services in your [...] No growth URINE SPECIMEN / Unknown Result [facility] Provider MICROBIOLOGY - GENERAL OR DERABLES Final Result * (ABNORMAL) Magnesium (12/08/2024 10:43 AM EDT) Pathologist [facility] Magnesium 1.3(A) 1.6 - 2.4 mg/dL Plasma Narrative Resulting Agency Comment Result [facility] LAB BLOOD ORDERABLES Denisse l Result * (ABNORMAL) Renal Function Panel w/o EGFR (12/08/2024 10:43 AM EDT) Pathologist [facility] Glucose 83 mg/dL BUN 21 4 - [...] g/dL Blood Narrative Resulting Agency Comment Result [facility] LAB BLOOD ORDERABLES Denisse l Result * Creatinine, urine, random (12/08/2024 10:43 AM EDT) [facility] Creatinine, Urine 65 Urine Narrative Resulting Agency Comment Result [facility] Provider URINE ORDERABLES Final Re sult * Urinalysis w/Rfl to Microscopic (12/08/2024 10:43 AM EDT) Pathologist [facility] Glucose, UA Negative Negative Ketones, UA Negative Negative Blood, UA Negative Negative Bilirubin, UA Negative Negative Urobilinogen, UA Normal Normal Protein, UA Negative Negative Nitrite, UA Negative Negative Leukocyte Esterase, UA Negative Negative pH, UA 6.0 4.5 - 8.0 Specific [place], UA 1.010 1.005 - 1.030 Clarity, UA Clear Clear Color, UA Yellow Light Yellow, Yellow Urine Narrative Resulting Agency Comment Result [facility] Provider URINE ORDERABLES Final Re sult * Urine Protein, Tot, Random (w/o Creat) (12/08/2024 10:43 AM EDT) Total Protein, Ur 11.0 Urine Narrative Resulting Agency Comment Result [facility] Provider URINE ORDERABLES Final Re sult * (ABNORMAL) Hepatic Function Panel (12/08/2024 10:43 AM EDT) Pathologist [facility] Bilirubin, Direct 0.1 Bilirubin, Indirect 0.2 Alkaline Phosphatase 80 U/L ALT 14 U/L AST 16 U/L Total Bilirubin 0.3 0.1 - 1.4 mg/dL Total Protein 5.6(A) 6.4 - 8.2 g/dL Plasma Narrative Resulting Agency Comment Result [facility] Provider LAB BLOOD ORDERABLES Denisse l [...] 5.1 10^3/mL Blood Narrative Resulting Agency Comment us Historical Provider LAB BLOOD ORDERABLES Denisse [...] as of this encounter Care Teams Litigation Examiner Relationship Specialty Start Date End Date Enedina Mcguire NP [address] [place] [address] PCP - General Internal Medicine 10/05/24 Maureen Pantoja, ЮЛИЯ Txp Post Coordinator Transplant Hepatology 10/28/24 documented as of this encounter
--- OUTSIDE RECORDS SUMMARY | 2025-02-03 09:36 | XMS_ITS | Encounter Summary ---
Author Organization [facility] Address [address] [place] [address] Care Team Providers Care Alternative Dispute Resolution Mediator Name Role Phone Enedina Mcguire APRN Primary Care Provider + Encounter Details Date Type Department Care Team ([facility] st Contact Info) Description 10/07/2024 Results Follow-Up [facility] INTERNAL MEDICINE [address] [place] [address] Enedina Mcguire APRN [address] [place], [place] [id number] Social History Tobacco Use Types Packs/Day Years [...] Recorded In the past 12 months has [employer], [email or web address], oil, or water [employer] threatened to shut off services in your [...] GED or equivalent No 07/09/2024 Preferred Language Russian 07/09/2024 PHQ-2 Answer Date Recorded Patient Health [...] [facility] [address] [address] Vazquez Christie PA-C [address] [place] [address] documented as of this encounter Visit Diagnoses Not on filedocumented in this encounter Additional Health Concerns Assessment Noted Time PHQ-2 Depression Total Score: 1 12/31/19 24 3:25 PM EDT documented as of this encounter Care Teams Alternative Dispute Resolution Mediator Relationship Specialty Start Date End Date Enedina Mcguire APRN [address] [place] [address] PCP - General Nurse Practitioner 10/27/24 documented as of this encounter
--- OUTSIDE RECORDS SUMMARY | 2025-02-03 09:36 | XMS_ITS | Encounter Summary ---
Author Organization [facility] Address [address] [place] [address] Care Team Providers Care Admissions Manager Rn Name Role Phone Enedina Mcguire NP Primary Care Provider + [phone] Maureen Pantoja RN Unavailable Unavail able Source [...] release of HIV test results or diagnoses. [id number] Health Encounter Details Date Type Department Care Team (Late st Contact Info) Description 12/09/2024 Orders Only [facility] Liver Transplant at [address] [place] [address] Maureen Pantoja, RN Social History Tobacco Use [...] Recorded In the past 12 months has [employer] gas, oil, or water [employer] threatened to shut off services in [...] documented as of this encounter Care Teams Admissions Manager Rn Relationship Specialty Start Date End Date Enedina Mcguire NP [address] [place] [address] PCP - General Internal Medicine 10/05/24 Maureen Pantoja, ЮЛИЯ Txp Post Coordinator Transplant Hepatology 10/28/24 documented as of this encounter
--- OUTSIDE RECORDS SUMMARY | 2025-02-03 09:36 | XMS_ITS | Encounter Summary ---
Author Organization [facility] Address [address] [place] [address] Care Team Providers Care Kick Press Setter Name Role Phone Enedina Mcguire NP Primary Care Provider + [phone] Maureen Pantoja RN Unavailable Unavail able Source [...] release of HIV test results or diagnoses. [id number] Reason for Visit * Reason Comments Results Encounter Details Date Type Department Care Team (Riyk st Contact Info) Description 12/12/2024 Telephone [facility] Liver Transplant at [address] [address] Maureen Pantoja, RN Results Social [...] In the past 12 months has e [employer], gas, oil, or water [employer] threatened to shut off services in your [...] documented as of this encounter Care Teams Kick Press Setter Relationship Specialty Start Date End Date Enedina Mcguire NP [address] [place] [address] PCP - General Internal Medicine 10/05/24 Maureen Pantoja, RN Txp Post Coordinator Transplant Hepatology 10/28/24 documented as of this encounter
--- OUTSIDE RECORDS SUMMARY | 2025-02-03 09:36 | XMS_ITS | Clinical Summary ---
Author Organization [facility] Address [address] [place] [address] Care Team Providers Care Cent[employer] Technical Lead Senior Developer Name Role Phone Enedina Mcguire APRN Primary Care Provider + Allergies No known active allergies Medications riFAXIMin (Xifaxan) 550 MG tabletIndications: Hepatic encephalopathy Take 1 tablet by mouth Every 12 (Twelve) Hours. 180 tablet 04/25/20 23 Active Additional Information Patient not taking.Reported on 01/01/2025 folic acid (FOLVITE) 1 MG tablet Take 1 tablet by mouth Daily. 07/13/19 25 Active Additional Information Patient not taking.Reported on 01/01/2025 lactulose (CHRONULAC) 10 GM/15ML solution Take 30 mL by mouth 2 (Two) Times a Day. 07/11/19 25 Active Additional Information Patient not taking.Reported on 01/01/2025 multivitamin with minerals tablet tablet Take 1 tablet by mouth Daily. 07/13/19 25 Active Additional Information Patient not taking.Reported on 01/01/2025 thiamine (VITAMIN B1) 100 MG tablet Take 1 tablet by mouth Daily. 07/15/19 25 Active Additional Information Patient not taking.Reported on 01/01/2025 topiramate (TOPAMAX) 25 MG tablet Take by mouth. 07/31/19 25 Active naloxone (NARCAN) 4 MG/0.1ML nasal spray Administer 1 spray into the nostril(s) as directed by provider. 07/24/19 25 Active lidocaine (LIDODERM) 5 % Place 1 patch on the skin as directed by provider Daily. 07/30/19 25 Active Bempedoic Acid-Ezetimibe (Nexlizet) 180-10 MG tablet Take 1 tablet by mouth Daily. Active levothyroxine (SYNTHROID, LEVOTHROID) 75 MCG tabletIndications: Acquired hypothyroidism Take 1 tablet by mouth Daily. 30 tablet 10/21/19 25 Active pantoprazole (PROTONIX) 40 MG EC tabletIndications: Secondary esophageal varices without bleeding Take 1 tablet by mouth Daily. 30 tablet 10/21/19 25 Active Additional Information Patient not taking.Reported on 01/01/2025 ciprofloxacin (CIPRO) 500 MG tablet Take 1 tablet by mouth Daily. 09/11/19 25 Active FLUoxetine (PROzac) 20 MG capsule Take 1 capsule by mouth Daily. 10/18/19 25 Active lactulose (CHRONULAC) 10 GM/15ML solution solution (encephalopathy) Take 30 mL by mouth 3 (Three) Times a Day. 08/20/19 25 Active loratadine (CLARITIN) 10 MG tablet Take 1 tablet by mouth. 10/18/19 25 Active methocarbamol (ROBAXIN) 500 MG tablet Take 1 tablet by mouth 2 (Two) Times a Day. 10/18/19 25 Active midodrine (PROAMATINE) 10 MG tablet Take 1 tablet by mouth 3 (Three) Times a Day. 10/18/19 25 Active potassium chloride ER (K-TAB) 20 MEQ tablet controlled-release ER tablet Take 2 tablets by mouth Daily. Active torsemide (DEMADEX) 20 MG tablet 10/22/19 25 Active ursodiol (ACTIGALL) 300 MG capsule Take 1 capsule by mouth. 09/10/19 25 Active zinc sulfate (ZINCATE) 220 (50 Zn) MG capsule Take 1 capsule by mouth Daily. 08/21/19 25 Active tacrolimus (PROGRAF) 1 MG capsule Take by mouth. Take 5 capsules (5 mg total) by mouth every morning AND 6 capsules (6 mg total) at bedtime. Use as directed. Indications: Prevention of Kidney Transplant Rejection, Prevention of Liver Transplant Rejection. 12/03/19 25 Active mycophenolate (CELLCEPT) 250 MG capsule Take 2 capsules by mouth 2 (Two) Times a Day. 11/26/19 25 Active HYDROmorphone (DILAUDID) 2 MG tablet Take 1 tablet by mouth Every 6 (Six) Hours. 11/26/19 25 Active predniSONE (DELTASONE) 5 MG tablet Take 1.5 tablets by mouth Daily. 12/06/19 25 Active valGANciclovir (VALCYTE) 450 MG tablet Take 1 tablet by mouth Daily. Active naltrexone (DEPADE) 50 MG tablet Take 1 tablet by mouth Daily. Active Active Problems Problem Noted Date Diagnosed [...] Type Department Care Team Description 01/08/2025 Telephone [facility] PAIN MANAGEMENT [address] [facility] [address] [place] [id number] Vazquez Christie PA-C Appointment 01/01/2025 2:15 PM EDT Office Visit [facility] PAIN MANAGEMENT [address] [facility] [address] [place] [address] Vazquez Christie PA-C Cervical radiculopathy (Primary Dx); Long-term use of high-risk medication; Cervical spondylosis without myelopathy; Cervical pain (neck); Therapeutic drug monitoring; Chronic pain syndrome 01/01/2025 Travel 12/12/2024 Refill [facility] INTERNAL MEDICINE [address] [place] [address] Enedina Mcguire APRN Acquired hypothyroidism; Secondary esophageal varices without bleeding 12/05/2024 Telephone [facility] PAIN MANAGEMENT [address] [place] [address] Vazquez Christie PA-C 12/04/2024 2:55 PM EDT Lab [facility] [place] [address] [facility] [address] [place] [address] Therapeutic drug monitoring 12/04/2024 2:15 PM EDT Office Visit [facility] PAIN MANAGEMENT [address] [facility] [address] [place] [address] Vazquez Christie PA-C Cervical radiculopathy (Primary Dx); Long-term use of high-risk medication; Cervical pain (neck); Cervical spondylosis without myelopathy; Therapeutic drug monitoring; Chronic pain syndrome 12/04/2024 Travel from Last 3 Months Immunizations Immunization [...] Brief Depression Severity Measure Score 0 10/02/2022 [facility] [...] GED or equivalent No 07/09/2024 Preferred Language Taiwanese 07/09/2024 PHQ-2 Answer Date Recorded Patient Health [...] 04/02/2025 2:15 PM EST Office Visit [facility] PAIN [facility]GEMENT [address] [facility] [address] [place] [address] Vazquez Christie PA-C [address] [facility] [address] [place] [address] Health Maintenance Due Date Last Done Comments Hepatitis B (2 of 3 - 19+ 3- dose series) 10/11/2010 09/13/2010 ANNUAL PHYSICAL 10/14/2024 10/15/2023, 10/02/2022 INFLUENZA VACCINE 12/12/2024 03/12/2024, 03/12/2023 LIPID PANEL 10/07/2025 10/07/2024, 0307/2024, 07/14/2024, Additional history exists TDAP/TD VACCINES (3 - Td or Tdap) 06/03/2028 019, 09/13/2010 HEPATITIS C SCREENING Completed 11/25/2024 , 11/25/2024, 10/25/2024, Additional history exists Pneumococcal Vaccine 0-49 Discontinued Medical Devices Implanted Type Area Linux Admin Engineer Device Identifier Shelf Expiration Date Model / Serial / Lot Coil Concerto Pgla Hel Detach Sys 10mm 30cm - [id number] Implanted:Qty: 1 on 07/03/2022 by Timmy Brunner MD at [facility] Implant Left: Vein EV3 A [employer] [id number] / / [id number] Description:Coil is in the s hort gastric vein Coil Concerto Nyl Tioga Detach Sys 10mm 30cm - [id number] Implanted:Qty: 1 on 07/03/2022 by Timmy Brunner MD at [facility] Implant Left: Vein EV3 A [employer] [id number] / / [id number] Description:Short gastric ve in Coil Concerto Nyl Tioga Detach Sys 10mm 30cm - [id number] Implanted:Qty: 1 on 07/03/2022 by Timmy Brunner MD at [facility] Implant Left: Vein EV3 A [employer] [id number] / / [id number] Description:Short gasrtic ve in Coil Concerto Nyl Tioga Detach Sys 10mm 30cm - [id number] Implanted:Qty: 1 on 07/03/2022 by Timmy Brunner MD at [facility] Implant Left: Vein EV3 A [employer] [id number] / / [id number] Description:Short gastric ve in Coil Concerto Nyl Tioga Detach Sys 8mm 30cm - [id number] Implanted:Qty: 1 on 07/03/2022 by Timmy Brunner MD at [facility] Implant Left: Vein EV3 A [employer] [id number] / / [id number] Description:Short gastric ve in Coil Concerto Nyl Tioga Detach Sys 8mm 30cm - [id number] Implanted:Qty: 1 on 07/03/2022 by Timmy Brunner MD at [facility] Implant Left: Vein EV3 A [employer] [id number] / / [id number] Description:Short gastric ve in Sys Del Liq Emb Trufill Nbca 1g Vl - [id number] Implanted:Qty: 1 on 07/03/2022 by Timmy Brunner MD at [facility] Implant Left: Vein [facility] [id number] / / [id number] Description:Short gastric ve in Plug Vasc Anton Emb Ampltz .027 1kd0c33dw - [id number] Implanted:Qty: 1 on 07/03/2022 by Timmy Brunner MD at [facility] Implant Left: Vein [employer] [id number] / / [id number] Description:Coronary vein Coil Concerto Nyl Tioga Detach Sys 8mm 30cm - [id number] Implanted:Qty: 1 on 07/03/2022 by Timmy Brunner MD at [facility] Implant Left: Vein EV3 A [employer] [id number] / / [id number] Description:CORONARY VEIN Gelatin Emb Embocube 5.02mm 50mg Red - [id number] Implanted:Qty: 1 on 07/03/2022 by Timmy Brunner MD at [facility] Implant Left: Vein [employer] [id number] / / [id number] Description:SHORT GASTRIC VE IN Coil Emb Dona 3.7/Lp .035in 14cm 12mm - [id number] Implanted:Qty: 1 on 07/03/2022 by Timmy Brunner MD at [facility] Implant Left: Vein [employer]OOK [id number] / / [id number] Description:SHORT GASTRIC VE IN Coil Concerto Pgla Tioga Detach Sys 12mm 30cm - [id number] Implanted:Qty: 1 on 07/03/2022 by Timmy Brunner MD at [facility] Implant Left: Vein EV3 A [employer] [id number] / / [id number] Description:Short gastric ve in Coil Concerto Nyl Tioga Detach Sys 8mm 30cm - [id number] Implanted:Qty: 1 on 07/03/2022 by Timmy Brunner MD at [facility] Implant Left: Vein EV3 A [employer] [id number] / / [id number] Description:SHORT GASTRIC VE IN Coil Concerto Nyl Tioga Detach Sys 8mm 30cm - [id number] Implanted:Qty: 1 on 07/03/2022 by Timmy Brunner MD at [facility] Implant Left: Vein EV3 A [employer] [id number] / / [id number] Description:Short gastric ve in Coil Concerto Nyl Tioga Detach Sys 8mm 30cm - [id number] Implanted:Qty: 1 on 07/03/2022 by Timmy Brunner MD at [facility] Implant Left: Vein EV3 A [employer] [id number] / / [id number] Description:Short gastric ve in Coil Concerto Pgla Hel Detach Sys 14mm 40cm - [id number] Implanted:Qty: 1 on 07/03/2022 by Timmy Brunner MD at [facility] Implant Left: Vein EV3 A [employer] [id number] / / [id number] Description:Short gastric ve in Coil Concerto Pgla Hel Detach Sys 14mm 40cm - [id number] Implanted:Qty: 1 on 07/03/2022 by Timmy Brunner MD at [facility] Implant Left: Vein EV3 A [employer] [id number] / / [id number] Description:Short gastric ve in Coil Concerto Pgla Tioga Detach Sys 14mm 30cm - [id number] Implanted:Qty: 1 on 07/03/2022 by Timmy Brunner MD at [facility] Implant Left: Vein EV3 A [employer] [id number] / / [id number] Description:Short gastric ve in Coil Concerto Pgla Tioga Detach Sys 14mm 30cm - [id number] Implanted:Qty: 1 on 07/03/2022 by Timmy Brunner MD at [facility] Implant Left: Vein EV3 A [employer] [id number] / / [id number] Description:Short gastric ve in Coil Concerto Pgla Tioga Detach Sys 14mm 30cm - [id number] Implanted:Qty: 1 on 07/03/2022 by Timmy Brunner MD at [facility] Implant Left: Vein EV3 A [employer] [id number] / / [id number] Description:Short gastric ve in Procedures Procedure Name [...] the time period is included. Enedina Mcguire OCCUPATIONAL PHYSICIAN LAB BLOOD ORDERABLES Fin al Result * (ABNORMAL) Urine Drug Screen - Urine, Clean Catch (12/04/2024 2:50 PM EDT) THC, Screen, Urine Positive(A) Negative 12/04 8:32 PM EDT [facility] Phencyclidine (PCP), Urine Negative Negative 12/04/2024 8:32 PM EDT [facility] Cocaine Screen, Urine Negative Negative 12/04/2024 8:32 PM EDT [facility] Methamphetamine, Ur Negative Negative 12/04/2024 8:32 PM EDT [facility] Opiate Screen Positive(A) Negative 12/04/2024 8:32 PM EDT [facility] Amphetamine Screen, Urine Negative Negative 12/04/2024 8:32 PM EDT [facility] Benzodiazepine Screen, Urine Negative Negative 12/04/2024 8:32 PM EDT [facility] Tricyclic Antidepressants Screen Negative Negative 12/04/2024 8:32 PM EDT [facility] Methadone Screen, Urine Negative Negative 12/04/2024 8:32 PM EDT [facility] Barbiturates Screen, Urine Negative Negative 12/04/2024 8:32 PM EDT [facility] Oxycodone Screen, Urine Negative Negative 12/04/2024 8:32 PM EDT [facility] Buprenorphine, Screen, Urine Negative Negative 12/04/2024 8:32 PM EDT [facility] Urine Urine specimen obtained by clean catch procedure / Unknown Collection / Unknown 12/04/2024 2:50 PM EDT 12/04/2024 2:54 PM EDT [facility]ORAT[facility] - 12/04/2024 8:32 PM EDT [...] Vazquez JACOME-Lalit URINE ORDERABLES Final R esult [facility]
[address] [place] [address], * Fentanyl, Urine - Urine, Clean Catch (12/04/2024 2:50 PM EDT) Fentanyl, Urine Negative Negative 12/04/2024 9:15 PM EDT [facility] Urine Urine specimen obtained by clean catch procedure / Unknown Collection / Unknown 12/04/2024 2:50 PM EDT 12/04/2024 2:54 PM EDT [facility]ORATORY - 12/04/2024 9:15 PM EDT [...] Pratik PA-C URINE ORDERABLES Final R esult [facility]
[address] [place] [address], * (ABNORMAL) Lipid Panel (10/15/2023 4:16 PM EDT) Total Cholesterol 234(H) 0 - 200 mg/dL 10/16/2023 2:33 AM EDT [facility] Triglycerides 203(H) 0 - 150 mg/dL 10/16/2023 2:33 AM EDT [facility] HDL Cholesterol 41 40 - 60 mg/dL 10/16/2023 2:33 AM EDT [facility] LDL Cholesterol 156(H) 0 - 100 mg/dL 10/16/2023 2:33 AM EDT [facility] VLDL Cholesterol 37 5 - 40 mg/dL 10/16/2023 2:33 AM EDT [facility] LDL/HDL Ratio 3.72 10/16/2023 2:33 AM EDT [facility] Blood Venipuncture / Unknown 10/15/2023 4:16 PM EDT 10/15/2023 4:16 PM EDT Narrative [facility] - 10/16/2023 2:33 AM EDT Cholesterol [...] Very High >189 mg/dL us Enedina Mcguire OCCUPATIONAL PHYSICIAN LAB BLOOD ORDERABLES Fin al Result [facility]
[address] [place] [address], from Last 3 Months or Most Recently [...] Of Support Discussed With: Patient Care Teams Cent[employer] Technical Lead Senior Developer Relationship Specialty Start Date End Date Enedina Mcguire APRN [address] [place] [address] PCP - General Nurse Practitioner 10/27/24
--- OUTSIDE RECORDS SUMMARY | 2025-02-03 09:36 | XMS_ITS | Encounter Summary ---
Author Organization [facility] Address [address] [place] [address] Care Team Providers Care Textile Machine Mechanic Name Role Phone Enedina Mcguire NP Primary Care Provider + [phone] Maureen Pantoja RN Unavailable Unavail able Source [...] release of HIV test results or diagnoses. [id number] Reason for Visit * Reason Onset Date Comments Medication Refill 01/21/2025 Encounter Details Date Type Department Care Team (Late st Contact Info) Description 01/21/2025 Refill [facility] Liver Transplant at [address] [address] Harvey Domínguez III, MD [address] [place] [address] Encounter for therapeutic drug monitoring; S/P liver transplant ([facility]); Hypomagnesemia; Kidney transplant recipient; Hypertension, unspecified [...] the past 12 months has th e [employer], gas, oil, or water company threatened [...] documented as of this encounter Care Teams Textile Machine Mechanic Relationship Specialty Start Date End Date Enedina Mcguire NP [address] [place] [address] PCP - General Internal Medicine 10/05/24 Maureen Pantoja, RN Txp Post Coordinator Transplant Hepatology 10/28/24 documented as of this encounter
--- OUTSIDE RECORDS SUMMARY | 2025-02-03 09:36 | XMS_ITS | Encounter Summary ---
Author Organization [facility] Address [address] [place] [address] Care Team Providers Care Park Guard Name Role Phone Enedina Mcguire NP Primary Care Provider + [phone] Maureen Pantoja RN Unavailable Unavail able Source [...] release of HIV test results or diagnoses. [id number] Reason for Referral * Diagnostic Lab (Routine) - New Request Specialty Diagnoses / Procedures Referred By Shane hernadez Referred To Contact Diagnoses Kidney transplant recipient Liver transplant recipient (CMS-HCC) Viral disease exposure Immunosuppression ([facility]-H[facility]) Procedures BK Virus Quantitative by PCR, Blood [facility] Liver Transplant at [address] [address] Phone: tel: fax: Referral ID Status Reason Start Date Expiration Date V isits Requested Visits Authorized [id number] New Request 12/09/2024 06/07/2025 1 1 * Diagnostic Lab (Routine) - New Request Specialty Diagnoses / Procedures Referred By Contac t Referred To Contact Diagnoses Kidney transplant recipient Liver transplant recipient (CMS-HCC) Viral disease exposure Immunosuppression (CMS-HCC) Procedures BK Virus Quantitative by PCR, Blood [facility] Liver Transplant at [address] [address] Phone: tel: fax: Referral ID Status Reason Start Date Expiration Date V isits Requested Visits Authorized [id number] New Request 12/09/2024 06/07/2025 1 1 * Diagnostic Lab (Routine) - New Request Specialty Diagnoses / Procedures Referred By Contac t Referred To Contact Diagnoses Kidney transplant recipient Liver transplant recipient (CMS-HCC) Viral disease exposure Immunosuppression (CMS-HCC) Procedures BK Virus Quantitative by PCR, Blood [facility] Liver Transplant at [address] [address] Phone: tel: fax: Referral ID Status Reason Start Date Expiration Date V isits Requested Visits Authorized [id number] New Request 12/09/2024 06/07/2025 1 1 * Diagnostic Lab (Routine) - New Request Specialty Diagnoses / Procedures Referred By Contac t Referred To Contact Diagnoses Kidney transplant recipient Liver transplant recipient (CMS-HCC) Viral disease exposure Immunosuppression (CMS-HCC) Procedures BK Virus Quantitative by PCR, Blood [facility] Liver Transplant at [address] [address] Phone: tel: fax: Referral ID Status Reason Start Date Expiration Date V isits Requested Visits Authorized [id number] New Request 12/09/2024 06/07/2025 1 1 Encounter Details Date Type Department Care Team (Late st Contact Info) Description 12/09/2024 Orders Only [facility] Liver Transplant at [address] [place] [address] Maureen Pantoja RN Kidney transplant [...] as 4 glasses of wine a days [employer] Answer Date Recorded In the past 12 months has th e [employer], gas, oil, or water company threatened to [...] Routine Kidney transplant recipient Liver transplant recipient ([facility]-HCC) Viral disease exposure Immunosuppression ([facility]) Expected: 01/27/2025 (Approximate), Expires: 06/11/2026 BK Virus Quantitative by PCR, Blood Lab Routine Kidney transplant recipient Liver transplant recipient ([facility]-HCC) Viral disease exposure Immunosuppression (CMS-HCC) Expected: 04/28/2025 (Approximate), Expires: 06/11/2026 BK Virus Quantitative by PCR, Blood Lab Routine Kidney transplant recipient Liver transplant recipient ([facility]-HCC) Viral disease exposure Immunosuppression ([facility]) Expected: 07/27/2025 (Approximate), Expires: 06/11/2026 BK Virus Quantitative by PCR, Blood Lab Routine Kidney transplant recipient Liver transplant recipient ([facility]) Viral disease exposure Immunosuppression ([facility]) Expected: 10/27/2025 (Approximate), Expires: 06/11/2026 documented as [...] documented as of this encounter Care Teams Park Guard Relationship Specialty Start Date End Date Enedina Mcguire NP [address] [place] [address] PCP - General Internal Medicine 10/05/24 Maureen Pantoja, RN Txp Post Coordinator Transplant Hepatology 10/28/24 documented as of this encounter
--- OUTSIDE RECORDS SUMMARY | 2025-02-03 09:36 | XMS_ITS | Encounter Summary ---
Author Organization [facility] Address [address] [place] [address] Care Team Providers Care Genetic Scientist Name Role Phone Enedina Mcguire NP Primary Care Provider + [phone] Maureen Pantoja RN Unavailable Unavail able Source [...] release of HIV test results or diagnoses. [id number] Reason for Visit * Reason Comments Medication Management Encounter Details Date Type Department Care Team (Late st Contact Info) Description 01/26/2025 Telephone [facility] Liver Transplant at [address] [address] Maureen Pantoja, control operator flow coat Management Social History Tobacco Use Types Packs/Day [...] [employer] gas, oil, or water [employer] threatened to shut off services in your [...] Progress Notes * Maureen Pantoja RN - 01/26/2025 8:44 AM EDT Patient due to stop Bactrim and Valcyte today. Med list updated. Patient notified via [employer]. CMV monitoring DUE ~ 02/09, 02/23, 03/09. CMV PCR orders placed. Txp MA to send to outside lab. documented in this encounter Plan of Treatment Scheduled Orders Name Type Priority Associated Diagnoses Orde r Schedule Cytomegalovirus DNA, Quant, RT PCR Lab Routine S/P liver transplant (CMS-HCC) Immunosuppression (CMS-HCC) Viral disease exposure Expected: 02/09/2025, Expires: 08/10/2025 Cytomegalovirus DNA, Quant, RT PCR Lab Routine S/P liver transplant (CMS-HCC) Immunosuppression (CMS-HCC) Viral disease exposure Expected: 02/23/2025, Expires: 08/10/2025 Cytomegalovirus DNA, Quant, RT PCR Lab Routine S/P liver transplant (CMS-HCC) Immunosuppression (CMS-HCC) Viral disease exposure Expected: 03/09/2025, Expires: 08/10/2025 documented as of this encounter Visit Diagnoses Diagnosis S/P liver transplant (CMS-HCC)- Primary Immunosuppression (CMS-HCC) Viral disease exposure Contact with or exposure to other viral diseases documented in this encounter Additional Health Concerns Infection Onset Date Last Indicated Resolved Time 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
--- OUTSIDE RECORDS SUMMARY | 2025-02-03 09:36 | XMS_ITS | Encounter Summary ---
Author Organization [facility] Address [address] [place] [address] Care Team Providers Care Diagnostic Imaging Manager Name Role Phone Enedina Mcguire NP Primary Care Provider + [phone] Maureen Pantoja RN Unavailable Unavail able Source [...] release of HIV test results or diagnoses. [id number] Reason for Visit * Reason Onset Date Comments Medication Refill 01/21/2025 Encounter Details Date Type Department Care Team (Late st Contact Info) Description 01/21/2025 Refill [facility] Liver Transplant at [address] [place] [address] Rose Montelongo MD [facility] [address] [place], [place] [id number] Social History Tobacco Use Types Packs/Day Years Used Date Smoking Tobacco: Former Cigarettes Smokeless Tobacco: Current Alcohol Use Standard Drinks/Week Comments Yes 0 (1 standard drink = 0.6 oz pure alcohol) History of alcohol abuse, reports no use in 3 week- typically endorses use as 4 glasses of wine a days Utilities Answer Date Recorded In the past 12 months has [employer], gas, oil, or water [employer] threatened to shut off services in your [...] documented as of this encounter Care Teams Diagnostic Imaging Manager Relationship Specialty Start Date End Date Enedina Mcguire NP [address] [place] [address] PCP - General Internal Medicine 10/05/24 Maureen Pantoja, ЮЛИЯ Txp Post Coordinator Transplant Hepatology 10/28/24 documented as of this encounter
--- OUTSIDE RECORDS SUMMARY | 2025-02-03 09:37 | XMS_ITS | Encounter Summary ---
Author Organization [facility] Address [address] [place] [address] Care Team Providers Care Lecturer In Marketing Name Role Phone Enedina Mcguire APRN [...] 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 Utilities Answer Date Recorded In the past 12 months has [employer] | Anywhere, gas, oil, or water [employer] threatened to shut off services in [...] Brief Depression Severity Measure Score 0 10/02/2022 [facility] of Occupat ional Health - Occupational Stress [...] Description 04/02/2025 2:15 PM EST Office Visit [facility] PAIN MANAGEMENT [address] [phone] Vazquez Christie PA-C [address] [place] [address] documented as of this encounter Visit Diagnoses Not on filedocumented in this encounter Additional Health Concerns Assessment Noted Time PHQ-2 Depression Total Score: 1 12/31/19 24 3:25 PM EDT documented as of this encounter Care Teams Lecturer In Marketing Relationship Specialty Start Date End Date Enedina Mcguire APRN [address] [place] [address] PCP - General Nurse Practitioner 10/27/24 documented as of this encounter"
--- OUTSIDE RECORDS SUMMARY | 2025-02-03 09:37 | XMS_ITS | Encounter Summary ---
Author Organization [facility] Address [address] [place] [address] Care Team Providers Care Nursing Educator Name Role Phone Enedina Mcguire APRN Primary Care Provider + Reason for Visit * Reason Onset Date Comments Appointment 01/08/2025 Encounter Details Date Type Department Care Team (Late st Contact Info) Description 01/08/2025 Telephone [facility] PAIN MA[facility]EMENT [address] [phone] Vazquez Christie PA-C [address] [place] [address] Appointment Social History Tobacco Use Types Packs/Day [...] Recorded In the past 12 months has [employer], gas, oil, or water [employer] threatened to shut off services in [...] 0 10/02/2022 [facility] Occupat ional [facility] - Occupational Stress Questionnaire Answer Date Recorded [...] GED or equivalent No 07/09/2024 Preferred Language Gibraltarian 07/09/2024 PHQ-2 Answer Date Recorded Patient Health [...] to patient: Self Best call back number: [phone] Chief complaint: C2/3 and C6/7 Medial branch [...] to patient: Self Best call back number: [phone] Patient is needing: PATIENT IS RETURNING A PHONE CALL TO [facility] - documented in this encounter Plan of Treatment Upcoming Encounters Date Type Department Care Team (Late st Contact Info) Description 04/02/2025 2:15 PM EST Office Visit [facility] PAIN MANAGEMENT [address] [phone] Vazquez Christie PA-C [address] [address] documented as of this encounter Visit Diagnoses Not on filedocumented in this encounter Additional Health Concerns Assessment Noted Time PHQ-2 Depression Total Score: 1 12/31/19 24 3:25 PM EDT documented as of this encounter Care Teams Nursing Educator Relationship Specialty Start Date End Date Enedina Mcguire APRN [address] [place] [address] PCP - General Nurse Practitioner 10/27/24 documented as of this encounter
--- OUTSIDE RECORDS SUMMARY | 2025-02-03 09:37 | XMS_ITS | Encounter Summary ---
Author Organization [facility] Address [address] [place] [address] Care Team Providers Care Technical Manager Name Role Phone Enedina Mcguire NP Primary Care Provider + [phone] Maureen Pantoja RN Unavailable Unavail able Source [...] release of HIV test results or diagnoses. [id number] Health Encounter Details Date Type Department Care Team (Late st Contact Info) Description 12/23/2024 Chart Note [facility] Liver Transplant at [address] [place] [phone] Maureen Pantoja, hog cooler results from 12/23/24 entered from [facility]. Social History Tobacco Use Types Packs/Day Years Used Date Smoking Tobacco: Former Cigarettes Smokeless Tobacco: Current Alcohol Use Standard Drinks/Week Comments Yes 0 (1 standard drink = 0.6 oz pure alcohol) History of alcohol abuse, reports no use in 3 week- typically endorses use as 4 glasses of wine a days Utilities Answer Date Recorded In the past 12 months has [employer], gas, oil, or water [employer] threatened to shut off services in your [...] EDT Lab results from 12/23/24 entered from [facility]. documented in this encounter Plan of [...] w/o EGFR (12/23/2024 9:53 AM EDT) Pathologist [facility] Glucose 88 BUN 19 CO2 27(A) 13 - 22 mmol/L Creatinine 0.80 Potassium 4.2 Sodium 138 Chloride 105 Phosphorus 5.2(A) 2.5 - 4.9 mg/dL Calcium 9.2 EGFR 107 mg/dL Albumin 4.4 3.5 - 5.0 g/dL Blood us Harvey Domínguez III, MD LAB BLOOD ORDERABLE S Final Result * Protime-INR (12/23/2024 9:53 AM EDT) Pathologist [facility] INR 0.94 0.9 - 1.1 Protime 10.5 Plasma us Harvey Domínguez III, MD LAB BLOOD ORDERABLE S Final Result * (ABNORMAL) CBC and differential (12/23/2024 9:53 AM EDT) Pathologist [facility] Hemoglobin 11.3(A) 13.5 - 17.5 g/dL Hematocrit [...] as of this encounter Care Teams Technical Manager Relationship Specialty Start Date End Date Enedina Mcguire NP [address] [place] [address] PCP - General Internal Medicine 10/05/24 Maureen Pantoja, RN Txp Post Coordinator Transplant Hepatology 10/28/24 documented as of this encounter
--- OUTSIDE RECORDS SUMMARY | 2025-02-03 09:37 | XMS_ITS | Clinical Summary ---
Author Organization [facility] Address [address] [place] [address] Care Team Providers Care Refractory Grinder Operator Name Role Phone Enedina Mcguire NP Primary Care Provider + [phone] Maureen Pantoja RN Unavailable Unavail able Source [...] therelease of HIV test results or diagnoses. [id number] Allergies Active Allergy Reactions Criticality Noted Date [...] mouth daily. 30 capsule 2 025 Active ergocalciferol (ERGOCALCIFEROL) 1,250 mcg (50,000 unit) capsuleIndications :Encounter for therapeutic drug monitoring,S/P liver transplant (CMS-HCC),Hypomagn esemia,Kidney transplant recipient,Hyperten kevin, unspecified type,Gastroesophag eal reflux disease, unspecified whether esophagitis present Take 1 capsule (50,000 Units total) by mouth once a week. 4 capsule 2 025 Active famotidine (PEPCID) 20 MG tabletIndications: Encounter for therapeutic drug monitoring,S/P liver transplant ([facility]),Hypomagn esemia,Kidney transplant recipient,Hyperten kevin, unspecified type,Gastroesophag eal reflux disease, unspecified whether esophagitis present Take 1 tablet (20 mg total) by mouth 2 times a day. 60 tablet 2 025 Active mycophenolate (CELLCEPT) 250 mg capsuleIndications :Encounter for therapeutic drug monitoring,S/P liver transplant ([facility]),Hypomagn esemia,Kidney transplant recipient,Hyperten kevin, unspecified type,Gastroesophag eal reflux disease, unspecified whether esophagitis present Take 2 capsules (500 mg total) by mouth 2 times a day. 120 capsule 5 025 Active NIFEdipine (PROCARDIA-XL) 30 MG (OSM) 24 hr tabletIndications: Encounter for therapeutic drug monitoring,S/P liver transplant ([facility]),Hypomagn esemia,Kidney transplant recipient,Hyperten kevin, unspecified type,Gastroesophag eal reflux disease, unspecified whether esophagitis present Take 1 tablet by mouth once daily 30 tablet 2 025 Active tacrolimus (PROGRAF) 1 MG capsuleIndications :Prevention of Kidney Transplant Rejection,Preventi on of Liver Transplant Rejection Take 5 capsules (5 mg total) by mouth every morning AND 6 capsules (6 mg total) every evening. Use as directed. Indications: Prevention of Kidney Transplant Rejection, Prevention of Liver Transplant Rejection. 330 capsule 5 025 Active gabapentin (NEURONTIN) 100 MG capsuleIndications :Encounter for therapeutic drug monitoring,S/P liver transplant ([facility]),Hypomagn esemia,Kidney transplant recipient,Hyperten kevin, unspecified type,Gastroesophag eal reflux disease, unspecified whether esophagitis present Take 1 capsule (100 mg total) by mouth 2 times a day. Work on decreasing to one capsule daily. 60 capsule 025 Active naltrexone (DEPADE) 50 mg tablet Take 1 tablet (50 mg total) by mouth daily. 30 tablet 5 Active acetaminophen (TYLENOL) 325 MG tablet Take 3 tablets (975 mg total) by mouth every 8 hours as needed 100 tablet 03/01 Active methocarbamoL (ROBAXIN) 500 MG tablet Take 2 tablets (1,000 mg total) by mouth 3 times a day. 120 tablet 01/31/20 11:36 AM EDT Active predniSONE (DELTASONE) 5 MG tablet Take 2 tablets (10 mg total) by mouth daily. 60 tablet Active cyclobenzaprine (FLEXERIL) 5 MG tablet Take 1 tablet (5 mg total) by mouth 3 times a day. 90 tablet 01/31/20 11:36 AM EDT Active fidaxomicin (DIFICID) 200 mg Tab tablet Take 1 tablet (200 mg total) by mouth 2 times a day for 8 days. 16 tablet 01/31/20 11:36 AM EDT 02/07 Active lidocaine (LIDODERM) 5 % Place 1 patch onto the skin daily. Apply patch for 12 hours and then remove patch and leave off for 12 hours. 30 patch 01/31/20 11:36 AM EDT Active naloxone (NARCAN) 4 mg/actuation [place] Apply 1 spray in one nostril if needed. Call 911. May repeat dose in other nostril if no response in 3 minutes. 2 each 1 10/18/19 10:25 AM EDT 01/06 Discontinued( Therapy Completed / No Longer Needed) senna-docusate (SENNOSIDES-DOCUSA TE SODIUM) 8.6-50 mg per tablet Take 1 tablet by mouth at bedtime as needed for Constipation. 30 tablet 11/03/19 25 10:20 AM EDT 01/06 Discontinued( Therapy Completed / No Longer Needed) polyethylene glycol (GLYCOLAX) 17 gram/dose powder Mix one capful (17 grams) in 8 ounces of liquid and drink by mouth daily as needed (Constipation). 238 g 11/03/19 25 10:20 AM EDT 06/29/06 Discontinued( Therapy Completed / No Longer Needed) alcohol swabs PadM Use as instructed. 200 each 1 11/03/19 25 10:20 AM EDT 01/06 Discontinued( Therapy Completed / No Longer Needed) magnesium chloride (SLOW MAG) 71.5 mg TbECIndications:hy pomagnesemia Take 2 tablets (143 mg total) by mouth 3 times a day. Indications: hypomagnesemia 180 tablet 2 02/02 acetaminophen (TYLENOL) 325 MG tabletIndications: Encounter for therapeutic drug monitoring,S/P liver transplant ([facility]),Hypomagn esemia,Kidney transplant recipient,Hyperten kevin, unspecified type,Gastroesophag eal reflux disease, unspecified whether esophagitis present Take 3 tablets (975 mg total) by mouth every 8 hours. 200 tablet 01/30 Discontinued( Stop Taking at Discharge) sulfamethoxazole-t rimethoprim (BACTRIM) 400-80 mg per tabletIndications: Encounter for therapeutic drug monitoring,S/P liver transplant ([facility]),Hypomagn esemia,Kidney transplant recipient,Hyperten kevin, unspecified type,Gastroesophag eal reflux disease, unspecified whether esophagitis present Take 1 tablet by mouth daily. 30 tablet 2 025 01/26 Discontinued gabapentin (NEURONTIN) 100 MG capsuleIndications :Encounter for therapeutic drug monitoring,S/P liver transplant ([facility]),Hypomagn esemia,Kidney transplant recipient,Hyperten kevin, unspecified type,Gastroesophag eal reflux disease, unspecified whether esophagitis present Take 1 capsule (100 mg total) by mouth 3 times a day. 90 capsule 025 01/21 Discontinued( Refill / Reorder) naltrexone (DEPADE) 50 mg tablet Take 1 tablet (50 mg total) by mouth daily. 30 tablet 025 01/21 Discontinued( Refill / Reorder) methocarbamoL (ROBAXIN) 500 MG tablet Take 2 tablets (1,000 mg total) by mouth in the morning and at bedtime. 120 tablet 025 01/06 Discontinued valGANciclovir (VALCYTE) 450 mg tabletIndications: Encounter for therapeutic drug monitoring,S/P liver transplant ([facility]),Hypomagn esemia,Kidney transplant recipient,Hyperten kevin, unspecified type,Gastroesophag eal reflux disease, unspecified whether esophagitis present Take 2 tablets (900 mg total) by mouth daily. 60 tablet 025 01/21 Discontinued( Refill / Reorder) predniSONE (DELTASONE) 5 MG tablet Take 1.5 tablets (7.5 mg total) by mouth daily. 45 tablet 1 025 01/06 Discontinued methocarbamoL (ROBAXIN) 500 MG tablet Take 2 tablets (1,000 mg total) by mouth 2 times a day as needed. 120 tablet 025 01/30 Discontinued predniSONE (DELTASONE) 5 MG tablet Take 1 tablet (5 mg total) by mouth daily. 90 tablet 025 01/30 Discontinued valGANciclovir (VALCYTE) 450 mg tabletIndications: Encounter for therapeutic drug monitoring,S/P liver transplant ([facility]),Hypomagn esemia,Kidney transplant recipient,Hyperten kevin, unspecified type,Gastroesophag eal reflux disease, unspecified whether esophagitis present Take 2 tablets (900 mg total) by mouth daily. 60 tablet 025 01/26 Discontinued Active Problems Problem Noted Date Diagnosed [...] with SBP, s/p CTX x5d; will cont support group manager ppx with Cipro 500mg daily - HE: [...] of blood s/p APC - Ascites: para /16 for 4L, 09/03 1L, 09/04 4L; no [...] Encounters Date Type Department Care Team Description 01/27/2025 6:28 PM EDT - 01/30/2025 2:25 PM EDT Hospital Encounter [facility] [address] [place] [address] Sunny Wei MD Haugen, Christine, MD Diarrhea of presumed infectious origin (Primary Dx); Immunosuppression ([facility]) Discharge Disposition: Home or Self Care WITHOUT Home Care Services 01/27/2025 Travel 01/27/2025 Telephone [facility] Liver Transplant at [address] [address] Marlene Ro MA 01/26/2025 Telephone [facility] Liver Transplant at [address] [address] Maureen Pantoja, plastic manager Management 01/23/2025 Telephone [facility] Liver Transplant at [address] [address] Maureen Pantoja, RN Results 01/21/2025 Refill [facility] Liver Transplant at [address] [address] Rose Montelongo MD 01/21/2025 Refill [facility] Liver Transplant at [address] [address] Lydia Sanchez MD Encounter for therapeutic drug monitoring; S/P liver transplant ([facility]); Hypomagnesemia; Kidney transplant recipient; Hypertension, unspecified type; Gastroesophageal reflux disease, unspecified whether esophagitis present 01/21/2025 Refill [facility] Liver Transplant at [address] [place] [address] Harvey Domínguez III, MD Encounter for therapeutic drug monitoring; S/P liver transplant ([facility]); Hypomagnesemia; Kidney transplant recipient; Hypertension, unspecified type; Gastroesophageal reflux disease, unspecified whether esophagitis present 01/20/2025 Chart Note [facility] Liver Transplant at [address] [place] [phone] Marlene Ro MA 01/20 Labs entered from [facility] 01/19/2025 Telephone [facility] Liver Transplant at [address] [place] [address] Gladis Chisholm MA Critical Lab Results 01/17/2025 Refill [facility] Liver Transplant at [address] [place] [address] Harvey Domínguez III, MD Encounter for therapeutic drug monitoring; S/P liver transplant ([facility]); Hypomagnesemia; Kidney transplant recipient; Hypertension, unspecified type; Gastroesophageal reflux disease, unspecified whether esophagitis present 01/16/2025 Telephone [facility] Liver Transplant at [address] [place] [address] Maureen Pantoja, RN Results 01/15/2025 Chart Note [facility] Liver Transplant at [address] [place] [phone] Marlene Ro MA 01/14 Labs entered from [facility] 01/15/2025 Telephone [facility] Liver Transplant at [address] [place] [phone] Marlene Ro MA 01/15/2025 Telephone [facility] Liver Transplant at [address] [place] [address] Kaylin Willard MSW 01/14/2025 Telephone [facility] Liver Transplant at [address] [phone] Marlene Ro MA 01/09/2025 Chart Note [facility] Liver Transplant at [address] [phone] Marlene Ro MA 01/09 Labs entered from [facility] 01/09/2025 Telephone [facility] Liver Transplant at [address] [phone] Marisela Martinez MA Results 01/08/2025 Telephone [facility] Liver Transplant at [address] [phone] Maureen Pantoja, RN Results 01/06/2025 9:30 AM EDT Office Visit [facility] Liver Transplant at [address] [phone] Leisa Juarez MD Kidney transplant recipient (Primary Dx); Hypomagnesemia; Hyperphosphatemia; Immunosuppression ([facility]); Viral disease exposure; Hypertension, unspecified type 01/06/2025 8:20 AM EDT Office Visit [facility] Liver Transplant at [address] [place] [phone] Cosmo Pacheco MD Paci, Philippe, MD S/P liver transplant (CMS-HCC) (Primary Dx); Immunosuppression ([facility]); Kidney transplant recipient; Alcohol use disorder 01/06/2025 Social Work [facility] Liver Transplant at [address] [place] [phone] Kaylin Willard MSW 01/05/2025 Chart Note [facility] Liver Transplant at [address] [place] [address] Marlene Ro MA 01/05 Labs entered from [facility] 01/05/2025 Telephone [facility] Liver Transplant at [address] [place] [phone] Marisela Martinez MA Critical Lab Results 01/05/2025 Telephone [facility] Liver Transplant at [address] [place] [address] Maureen Pantoja, RN Results 12/31/2024 Chart Note [facility] Liver Transplant at [address] [place] [phone] Marlene Ro MA 12/31 Labs entered from [facility] 12/29/2024 Telephone [facility] Liver Transplant at [address] [place] [address] Maureen Pantoja, RN Results 12/23/2024 Chart Note [facility] Liver Transplant at [address] [place] [address] Maureen Pantoja, engine builder results from 12/23/24 entered from [facility]. 12/22/2024 Telephone [facility] Liver Transplant at [address] [place] [address] Maureen Pantoja, RN Results; Medication Dose Change 12/21/2024 Refill [facility] Liver Transplant at [address] [place] [address] Lydia Sanchez MD Encounter for therapeutic drug monitoring; S/P liver transplant (CMS-HCC); Hypomagnesemia; Kidney transplant recipient; Hypertension, unspecified type; Gastroesophageal reflux disease, unspecified whether esophagitis present 12/18/2024 2:00 PM EDT Office Visit [facility] Psychiatry Transplant at [address] [place] [address] Lizeth Warren PsyD Alcohol use disorder (Primary Dx); PTSD (post-traumatic stress disorder) 12/18/2024 Refill [facility] Liver Transplant at [address] [place] [address] Maureen Pantoja, ЮЛИЯ Encounter for therapeutic drug monitoring; S/P liver transplant ([facility]); Hypomagnesemia; Kidney transplant recipient; Hypertension, unspecified type; Gastroesophageal reflux disease, unspecified whether esophagitis present 12/17/2024 Chart Note [facility] Liver Transplant at [address] [phone] Marlene Ro MA 12/16 Labs entered [facility] 12/12/2024 Telephone [facility] Liver Transplant at [address] [place] [address] Maureen Pantoja, RN Results 12/09/2024 11:45 AM EDT Office Visit [facility] Psychiatry Transplant at [address] [address] Rebekah Linares LICDC Alcohol use disorder (Primary Dx) 12/09/2024 10:20 AM EDT Office Visit [facility] Liver Transplant at [address] [address] Harvey Domínguez III, MD Encounter for therapeutic drug monitoring (Primary Dx); S/P liver transplant ([facility]); Hypomagnesemia; Kidney transplant recipient; Hypertension, unspecified type; Gastroesophageal reflux disease, unspecified whether esophagitis present 12/09/2024 9:50 AM EDT Office Visit [facility] Liver Transplant at [address] [place] [address] Leisa Juarez MD Kidney transplant recipient (Primary Dx); Immunosuppressive management encounter following liver transplant (CMS-HCC); Hypomagnesemia; S/P liver transplant (CMS-HCC); Hypertension, unspecified type; Hyperparathyroidism ([facility]) 12/09/2024 Social Work [facility] Liver Transplant at [address] [address] Kaylin Willard MSW 12/09/2024 Orders Only [facility] Liver Transplant at [address] [address] Maureen Pantoja, ЮЛИЯ 12/09/2024 Orders Only [facility] Liver Transplant at [address] [address] Maureen Pantoja, ЮЛИЯ Kidney transplant recipient (Primary Dx); Liver transplant recipient ([facility]); Viral disease exposure; Immunosuppression ([facility]) 12/09/2024 Telephone [facility] Liver Transplant at [address] [address] Mitzy Gill MA 12/09/2024 Chart Note [facility] Liver Transplant at [address] [place] [address] Marlene Ro MA 12/04/2024 Telephone [facility] Liver Transplant at [address] [address] Maureen Pantoja, ЮЛИЯ Results 12/04/2024 Chart Note [facility] Liver Transplant at [address] [place] [address] Marlene Ro MA FK Pending-12/0412/04/2024 Telephone [facility] Liver Transplant at [address] [facility] [address] [place] [address] Kaylin Willard MSW 12/04/2024 Telephone [facility] Liver Transplant at [address] [place] [phone] Marlene Ro MA 12/03/2024 Chart Note [facility] Liver Transplant at [address] [place] [address] Marlene Ro MA 12/02/2024 Telephone [facility] Liver Transplant at [address] [place] [address] Mitzy Gill MA 12/01/2024 Telephone [facility] Liver Transplant at [address] [place] [address] Gladis Chisholm MA 11/27/2024 Telephone [facility] Liver Transplant at [address] [place] [address] Maureen Pantoja, RN Results 11/27/2024 Chart Note [facility] Liver Transplant at [address] [place] [address] Marlene Ro MA FK Pending 11/27 Labs 11/26/2024 Telephone [facility] Liver Transplant at [address] [place] [address] Maureen Pantoja, RN Results 11/25/2024 10:50 AM EDT Office Visit [facility] Liver Transplant at [address] [place] [address] Leisa Juarez MD Kaur, Taranpreet NADIYA (acute kidney injury) ([facility]) (Primary Dx); Kidney replaced by transplant; Metabolic acidosis; Hypervolemia associated with renal insufficiency 11/25/2024 10:20 AM EDT Office Visit [facility] Liver Transplant at [address] [place] [address] [place] [address] Lydia Sanchez MD Encounter for therapeutic drug monitoring (Primary Dx); S/P liver transplant ([facility]); Hypomagnesemia; Kidney transplant recipient; Hypertension, unspecified type; Gastroesophageal reflux disease, unspecified whether esophagitis present; Abdominal pain, unspecified abdominal location 11/25/2024 9:00 AM EDT Procedure visit [facility] Urology at [facility] [address] [facility] [place] [address] [place] [phone] Julieta Rogers PA Retained ureteral stent of transplanted kidney ([facility]) (Primary Dx) 11/25/2024 Social Work [facility] Liver Transplant at [address] [place] [address] [place] [phone] Kaylin Willard MSW 11/24/2024 Orders Only [facility] Liver Transplant at [address] [place] [address] [place] [phone] Maureen Pantoja, ЮЛИЯ 11/21/2024 Orders Only [facility]rology at [facility] [address] [facility] [place] [address] [place] [phone] Vasile Gordillo MA 11/21/2024 Telephone [facility] Liver Transplant at [address] [place] [address] [place] [address] Maureen Pantoja, RN Results 11/21/2024 Chart Note [facility] Liver Transplant at [address] [place] [address] [place] [phone] Marlene Ro MA FK: 11/18 & 11/20 Pending 11/20/2024 Refill [facility] Liver Transplant at [address] [address] Maureen Pantoja, ЮЛИЯ 11/20/2024 Refill [facility] Liver Transplant at [address] [address] Maureen Pantoja, ЮЛИЯ 11/20/2024 Orders Only [facility] Liver Transplant at [address] [address] Maureen Pantoja, ЮЛИЯ S/P liver transplant ([facility]) (Primary Dx); Immunosuppression ([facility]); Viral disease exposure; Alcohol use 11/18/2024 Telephone [facility] Liver Transplant at [address] [address] Maureen Pantoja, RN Results 11/18/2024 Chart Note [facility] Liver Transplant at [address] [address] Marlene Ro MA 11/11/2024 10:30 AM EDT Office Visit [facility] Liver Transplant at [address] [address] Unknown, Attending Provider Jessica Colon Kidney replaced by transplant (Primary Dx); Hypervolemia associated with renal insufficiency 11/11/2024 10:00 AM EDT Office Visit [facility] Liver Transplant at [address] [address] Cosmo Pacheco MD Quillin, Ralph Cutler III, MD Encounter for therapeutic drug monitoring (Primary Dx); Abdominal pain, unspecified abdominal location 11/11/2024 9:30 AM EDT Office Visit [facility] Psychiatry Transplant at [address] [place] [address] Lizeth Warren PsyD PTSD (post-traumatic stress disorder) (Primary Dx) 11/11/2024 8:50 AM EDT [facility] [address] [place] [phone] Harvey Domínguez III, MD Liver replaced by transplant ([facility]); Immunosuppressive management encounter following liver transplant ([facility]); Kidney transplant recipient 11/11/2024 Telephone [facility] Liver Transplant at [address] [address] Maureen Pantoja, ЮЛИЯ Results 11/10/2024 Orders Only [facility] Liver Transplant at [address] [address] Maureen Pantoja, ЮЛИЯ Liver transplant recipient ([facility]) (Primary Dx); Kidney transplant recipient; Immunosuppressive management encounter following liver transplant ([facility]) 11/10/2024 Orders Only [facility] Liver Transplant at [address] [address] Maureen Pantoja, ЮЛИЯ 11/09/2024 Telephone [facility] [address] [place] [address] Unknown, Attending Provider After Hours Call (Passing blood through stool states started this morning has had 3 bloody bowel movements kidney and liver txp done 2 weeks ago) 11/07/2024 Telephone [facility] Liver Transplant at [address] [place] [address] Marlene Ro MA 11/07/2024 Telephone [facility] Liver Transplant at [address] [place] [address] Maureen Pantoja, RN Results 11/07/2024 Chart Note [facility] Liver Transplant at [address] [place] [address] Marlene Ro MA FK Pending 11/04/2024 10:10 AM EDT Office Visit [facility] Liver Transplant at [address] [place] [address] Leisa Juarez MD Kidney transplant recipient (Primary Dx); Diarrhea of presumed infectious origin; Hypomagnesemia; Hypervolemia, unspecified hypervolemia type; Liver transplant recipient (CMS-HCC); Other hypervolemia; Hyperparathyroidism (CMS-HCC); Nausea and vomiting, unspecified vomiting type 11/04/2024 8:40 AM EDT Office Visit [facility] Liver Transplant at [address] [place] [address] Cosmo Pacheco MD Liver transplant recipient (CMS-HCC) (Primary Dx); Alcoholic cirrhosis of liver with ascites (CMS-HCC); Kidney transplant recipient; Acute kidney injury superimposed on CKD (CMS-HCC); CKD (chronic kidney disease) stage 4, GFR 15-29 ml/min (CMS-HCC); Immunosuppressive management encounter following liver transplant (CMS-HCC); Abdominal pain, unspecified abdominal location 11/04/2024 Telephone [facility] Liver Transplant [address] [address] [place] [address] Maureen Pantoja, ЮЛИЯ Results 11/04/2024 Results Follow-Up [facility] Liver Transplant at [address] [place] [address] Maureen Pantoja, ЮЛИЯ Tacrolimus level, Hepatic Function Panel, Renal Function Panel w/EGFR, Additional followed-up results: 3 11/04/2024 Social Work [facility] Liver Transplant at [address] [place] [address] Kaylin Willard MSW 11/04/2024 Nutrition [facility] Kidney Transplant at [address] [place] [phone] Ben Weiss, DMITRY 11/03/2024 Chart Note [facility] Liver Transplant at [place] [id number] [facility] [address] [place] [phone] Hillary Fernandes, PharmD Liver Transplant Pharmacy Discharge Note 11/03/2024 Telephone [facility] Liver Transplant at [place] [id number] [facility] [address] [place] [phone] Marisela Martinez MA from Last 3 Months Social History Tobacco Use Types Packs/Day Years Used Date Smoking Tobacco: Former Cigarettes Smokeless Tobacco: Current Tobacco Cessation:Counseling Given: No Alcohol Use Standard Drinks/Week Comments Yes 0 (1 standard drink = 0.6 oz pure alcohol) History of alcohol abuse, reports no use in 3 week- typically endorses use as 4 glasses of wine a days [employer] Answer Date Recorded In the past 12 months has [employer], gas, oil, or water [employer] threatened to shut off services in your [...] living in a detention (including now)? No 01/28/2025 Yearly Questionnaire Answer [...] Mass Index 27.17 01/27/2025 11:58 PM EDT Plan of Treatment Health Maintenance [...] Function/TSH (MyChart) 10/07/2025 0 10/07/2024, 10/06/2024, 09/03/2024 Depression Screening 12/10/2025 12/10/2024, 12/10/2024, 09/29/2024, Additional history exists Alcohol Misuse Screening 01/27/2026 025, 10/25/2024, 10/05/2024, Additional history exists Renal Function/GFR 01/30/2026 01/30/2025, 0 01/29/2025, 01/28/2025, Additional history exists Immunization: DTaP/Tdap/Td ( 3 - Td or Tdap) 06/03/2028 06/03/2018, 09/13/2010 Hepatitis C Screening (MyChart) Completed 10/25/2024, 10/07/2024, 10/06/2024, Additional history exists HIV Screening Completed 11/25/2024, 10/12, 10/07/2024 Procedures Procedure Name Priority Date/Time Associated Diagnosis Comments DIFFERENTIAL Add-On 01/30/2025 7:41 AM EDT TACROLIMUS LEVEL Timed 01/30/2025 5:51 AM EDT RENAL FUNCTION PANEL W/EGFR STAT 01/30/2025 5:51 AM EDT HEPATIC FUNCTION PANEL STAT 5:51 AM EDT MAGNESIUM STAT 01/30/2025 5:51 AM EDT CBC STAT 01/30/2025 5:[address] NECK WITH IV CONTRAST Routine 025 2:00 PM EDT SED RATE Routine 01/29/2025 5:55 AM EDT C-REACTIVE PROTEIN Routine 01/29/2025 5: 55 AM EDT TACROLIMUS LEVEL Timed 01/29/2025 5:5 5 AM EDT RENAL FUNCTION PANEL W/EGFR STAT 01/29/2025 5:55 AM EDT HEPATIC FUNCTION PANEL Routine 5:55 AM EDT MAGNESIUM STAT 01/29/2025 5:55 AM EDT CBC STAT 01/29/2025 5:55 AM EDT GIARDIA CRYPTOSPORIDIUM ANTIGENS Routine 01/28/2025 9:27 PM EDT OVA AND PARASITE COMPREHENSIVE W/ GIARDIA/CRYPTO Routine 01/28/2025 9:27 PM EDT CLOSTRIDIUM DIFFICILE TOXIN A/B ANTIGEN Routine 01/28/2025 1:21 PM EDT CLOSTRIDIUM DIFFICILE DNA AMPLIFICATION Routine 01/28/2025 1:21 PM EDT PHOSPHATIDYLETHANOL CONFIRMATION, B Timed 01/28/2025 7:14 AM EDT TACROLIMUS LEVEL Timed 01/28/2025 7:14 AM EDT RENAL FUNCTION PANEL W/EGFR STAT 01/28/2025 7:14 AM EDT HEPATIC FUNCTION PANEL STAT 7:14 AM EDT MAGNESIUM STAT 01/28/2025 7:14 AM EDT CBC STAT 01/28/2025 7:[address] HEAD WO CONTRAST STAT 01/28/2025 1 2:35 AM EDT ENTERIC PATHOGEN PANEL Routine 9:30 PM EDT UPPER RESPIRATORY VIRAL/BACTERIAL PANEL-GUARD RANGE ONLY Routine 01/27/2025 9:30 PM EDT LACTIC ACID, VENOUS BLOOD GAS STAT 01/27/2025 9:30 PM EDT URINALYSIS, MICROSCOPIC STAT 01/28/20 8:44 PM EDT STREP PNEUMO-LEGIONELLA URINE ANTIGEN Routine 01/27/2025 8:44 PM EDT HISTOPLASMA/BLASTOMYCES AG, EIA, U Routine 01/27/2025 8:44 PM EDT URINALYSIS-MACROSCOPIC W/REFLEX TO MICROSCOPIC STAT 01/27/2025 8:44 PM EDT PHOSPHATIDYLETHANOL CONFIRMATION, B Routine 01/27/2025 8:20 PM EDT BK VIRUS QUANTITATIVE BY PCR, BLOOD Routine 01/27/2025 8:20 PM EDT HISTOPLASMA/BLASTOMYCES AG, EIA, S Routine 01/27/2025 8:20 PM EDT FUNGITELL ULZM-B-MHBDLT Routine 01/28/20 8:20 PM EDT KATIE SCHAFER VIRUS DNA, QNT PCR, BLOOD Routine 01/27/2025 8:20 PM EDT CRYPTOCOCCUS ANTIGEN, SERUM Routine 01/27/2025 8:20 PM EDT CYTOMEGALOVIRUS DNA, QUANT, RT PCR Routine 01/27/2025 8:20 PM EDT ASPERGILLUS AG Routine 01/27/2025 8:20 PM EDT LIPASE STAT 01/27/2025 8:20 PM EDT HEPATIC FUNCTION PANEL STAT 8:20 PM EDT DIFFERENTIAL STAT 01/27/2025 8:20 PM EDT CBC STAT 01/27/2025 8:20 PM EDT HEMOGLOBIN A1C Routine 01/27/2025 8:20 PM EDT BASIC METABOLIC PANEL STAT 01/27/2025 8:20 PM EDT FUNGUS CULTURE, BLOOD Routine 01/27/2025 8:20 PM EDT AFB CULTURE, BLOOD Routine 01/27/2025 8: 20 PM EDT BLOOD CULTURE-PERIPHERAL STAT 025 8:20 PM EDT BLOOD CULTURE-PERIPHERAL STAT 025 8:20 PM EDT XR CHEST PA AND LATERAL TAMIR 01/28/20 7:02 PM EDT TACROLIMUS LEVEL Routine 01/20/2025 12:0 3 PM EDT MAGNESIUM Routine 01/20/2025 12:03 PM EDT RENAL FUNCTION PANEL W/O EGFR Routine 01/20/2025 12:03 PM EDT CREATININE, URINE, RANDOM Routine 2024 12:03 PM EDT URINALYSIS W/RFL TO MICROSCOPIC Routine 01/20/2025 12:03 PM EDT CBC AND DIFFERENTIAL Routine 01/20/2025 12:03 PM EDT URINE PROTEIN, TOTAL, RANDOM (W/O CREATININE) Routine 01/20/2025 12:03 PM EDT HEPATIC FUNCTION PANEL Routine 12:03 PM EDT PHATIDYLETHANOL (PETH) Routine 11:03 AM EDT TACROLIMUS LEVEL Routine 01/14/2025 10:5 3 AM EDT MAGNESIUM Routine 01/14/2025 10:53 AM [...] 10:53 AM EDT TACROLIMUS LEVEL Routine 01/09/2025 12:2 3 PM EDT MAGNESIUM Routine 01/09/2025 12:23 PM [...] 9:53 AM EDT TACROLIMUS LEVEL Routine 12/16/2024 10:0 5 AM EDT MAGNESIUM Routine 12/16/2024 10:05 AM EDT RENAL FUNCTION PANEL W/O EGFR Routine 12/16/2024 10:05 AM EDT PROTIME-INR Routine 12/16/2024 10:05 AM EDT CBC AND DIFFERENTIAL Routine 12/16/2024 10:05 AM EDT HEPATIC FUNCTION PANEL Routine 10:05 AM EDT TACROLIMUS LEVEL Routine 12/08/2024 10:4 3 AM EDT MAGNESIUM Routine 12/08/2024 10:43 AM [...] AM EDT S/P liver transplant (CMS-HCC) Immunosuppression ([facility]-HCC) Alcohol use HIV-1 RNA, QUANTITATIVE, PCR [...] 8:46 AM EDT Liver replaced by transplant ([facility]-HCC) Immunosuppressive management encounter following liver transplant ([facility]-HCC) POST KIDNEY TRANSPLANT URINE CULTURE Routine 11/04/2024 8:46 AM EDT Kidney transplant recipient EKG - SCAN 11/03/2024 9:07 AM EDT BLOOD TRANSFUSION - SCAN 025 8:24 AM EDT PERFUSION RECORD - SCAN 11/04/19 8:24 AM EDT HEPATITIS C ANTIBODY STAT 10/25/2024 10:17 PM EDT TSH Routine 10/07/2024 6:37 PM EDT from Last 3 Months or Most Recently Relevant to Health Maintenance Results * (ABNORMAL) Differential (01/30/2025 7:41 AM EDT) Only the most recent of5 resultswithin the time period is included. Neutrophils Relative 39.1(L) 40.0 - 80.0 % 01/30/2025 8:09 AM EDT [facility] Lymphocytes Relative 43.8 15.0 - 45.0 % 01/30/2025 8:09 AM EDT [facility] Monocytes Relative 14.2(H) 0.0 - 12.0 % 01/30/2025 8:09 AM EDT [facility] Eosinophils Relative 2.2 0.0 - 8.0 % 01/30/2025 8:09 AM EDT [facility] Basophils Relative 0.7 0.0 - 1.0 % 01/30/2025 8:09 AM EDT [facility] nRBC 0 0 - 0 /100 WBC 01/30/2025 8:09 AM EDT [facility] Neutrophils Absolute 782(L) 1,520 - 8,640 /uL 01/30/2025 8:09 AM EDT [facility] Lymphocytes Absolute 876 570 - 4,860 /uL 01/30/2025 8:09 AM EDT [facility] Monocytes Absolute 284 0 - 1,296 /uL 01/30/2025 8:09 AM EDT [facility] Eosinophils Absolute 44 0 - 864 /uL 01/30/2025 8:09 AM EDT [facility] Basophils Absolute 14 0 - 108 /uL 01/30/2025 8:09 AM EDT [facility] Whole Blood 01/30/2025 7:41 AM EDT 01/30/2025 8:01 AM EDT Feliciano Gomez CNP LAB BLOOD ORDERABLES Final Resu lt [facility] [address] [facility] * (ABNORMAL) Hepatic Function Panel (01/30/2025 5:51 AM EDT) Only the most recent of22 resultswithin the time period is included. Total Bilirubin 0.3 0.0 - 1.5 mg/dL 01/30/2025 7:06 AM EDT [facility] Bilirubin, Direct 0.05 0.00 - 0.40 mg/dL 01/30/2025 7:06 AM EDT [facility] AST 13 13 - 39 U/L 01/30/2025 7:06 AM EDT [facility] ALT 14 7 - 52 U/L 01/30/2025 7:06 AM EDT [facility] Alkaline Phosphatase 60 36 - 125 U/L 01/30/2025 7:06 AM EDT [facility] Total Protein 5.9(L) 6.4 - 8.9 g/dL 01/30/2025 7:06 AM EDT [facility] Albumin 4.1 3.5 - 5.7 g/dL 01/30/2025 7:06 AM EDT [facility] Bilirubin, Indirect 0.25 0.00 - 1.10 mg/dL 01/30/2025 7:06 AM EDT [facility] Plasma 01/30/2025 5:51 AM EDT 01/30/2025 6:31 AM EDT Carlton Hill MD LAB BLOOD ORDERABLES Final Result [facility] [address] [facility] * (ABNORMAL) Renal Function Panel w/EGFR (01/30/2025 5:51 AM EDT) Only the most recent of5 resultswithin the time period is included. Sodium 139 133 - 146 mmol/L 01/30/2025 7:06 AM EDT [facility] Potassium 3.5 3.5 - 5.3 mmol/L 01/30/2025 7:06 AM EDT [facility] Chloride 105 98 - 110 mmol/L 01/30/2025 7:06 AM EDT [facility] CO2 26 21 - 33 mmol/L 01/30/2025 7:06 AM EDT [facility] Anion Gap 8 3 - 16 mmol/L 01/30/2025 7:06 AM EDT [facility] BUN 29(H) 7 - 25 mg/dL 01/30/2025 7:06 AM EDT [facility] Creatinine 1.14 0.60 - 1.30 mg/dL 01/30/2025 7:06 AM EDT [facility] Glucose 114(H) 70 - 100 mg/dL 01/30/2025 7:06 AM EDT [facility] Calcium 8.7 8.6 - 10.3 mg/dL 01/30/2025 7:06 AM EDT [facility] Phosphorus 5.1(H) 2.1 - 4.7 mg/dL 01/30/2025 7:06 AM EDT [facility] Albumin 4.1 3.5 - 5.7 g/dL 01/30/2025 7:06 AM EDT [facility] Osmolality, Calculated 295 278 - 305 mOsm/kg 01/30/2025 7:06 AM EDT [facility] EGFR 83 01/30/2025 7:06 AM EDT [facility] Comment:As of 2021, the estimated GFR [...] BLOOD ORDERABLES Final Result Performing Organization Address [facility] Co de Phone Number [facility] [address] * Tacrolimus level (01/30/2025 5:51 AM EDT) Only the most recent of20 resultswithin the time period is included. [facility] Tacrolimus (LC-MS) 6.5 3.0 - 15.0 ng/mL 01/30/2025 11:11 AM EDT [facility] Comment:Performed via liquid chromatography tandem mass spectrometry. Detection limit: 1 ng/mL. Individual target concentrations may vary due to target organ and time after transplant. This test has been developed and its performance characteristics determined by [facility] which is certified under [...] BLOOD ORDERABLES Final Result Performing Organization Address [facility] Co de Phone Number [facility] [address] * (ABNORMAL) CBC (01/30/2025 5:51 AM EDT) Only the most recent of7 resultswithin the time period is included. [facility] WBC 2.1(L) 3.8 - 10.8 10E3/uL 01/30/2025 6:41 AM EDT [facility] RBC 3.41(L) 4.20 - 5.80 10E6/uL 01/30/2025 6:41 AM EDT [facility] Hemoglobin 11.2(L) 13.2 - 17.1 g/dL 01/30/2025 6:41 AM EDT [facility] Hematocrit 31.9(L) 38.5 - 50.0 % 01/30/2025 6:41 AM EDT [facility] MCV 93.7 80.0 - 100.0 fL 01/30/2025 6:41 AM EDT [facility] MCH 32.9 27.0 - 33.0 pg 01/30/2025 6:41 AM EDT [facility] MCHC 35.1 32.0 - 36.0 g/dL 01/30/2025 6:41 AM EDT [facility] RDW 14.8 11.0 - 15.0 % 01/30/2025 6:41 AM EDT [facility] Platelets 95(L) 140 - 400 10E3/uL 01/30/2025 6:41 AM EDT [facility] MPV 6.4(L) 7.5 - 11.5 fL 01/30/2025 6:41 AM EDT [facility] Whole Blood 01/30/2025 5:51 AM EDT 01/30/2025 6:33 AM EDT Carlton Hill MD LAB BLOOD ORDERABLES Final Result [facility] [address] [place] [address], [facility] * Magnesium (01/30/2025 5:51 AM EDT) Only the most recent of15 resultswithin the time period is included. Magnesium 1.7 1.5 - 2.5 mg/dL 01/30/2025 7:06 AM EDT [facility] Plasma 01/30/2025 5:51 AM EDT 01/30/2025 6:31 AM EDT us Carlton Hill MD LAB BLOOD ORDERABLES Final Result [facility] [address] [place] [address], [facility] * CT Neck With IV contrast (01/29/2025 [...] cavity, parapharyngeal space, and retropharyngeal space. Normal is technician space, infratemporal fossa, and buccal space. Infrahyoid [...] CT images of the neck were obtained ofayr259 mL of IOHEXOL 350 MG IODINE/ML INTRAVENOUS SOLUTION administeredintravenously . Sagittal and coronal 2D multiplanar reconstructions wereperformed at the scanner. COMPARISON: None available FINDINGS: Adequate diagnostic quality. Nasopharynx: Symmetric with no mass. Normal torus tubarius, fossa ofRosenmuller, and adenoid tonsillar tissue. Suprahyoid neck: Normal oropharynx, oral cavity, parapharyngeal space, andretropharyngeal space. Normal is technician space, infratemporal fossa, andbuccal space. Infrahyoid neck: [...] at 01/29/2025 2:41 PM EDT Feliciano Gomez [facility] CT ORDERABLES Final Result * Sed Rate (01/29/2025 5:55 AM EDT) Sed Rate 2 0 - 15 mm/hr 01/29/2025 7:03 AM EDT [facility] Whole Blood 01/29/2025 5:55 AM EDT 01/29/2025 6:41 AM EDT Feliciano Gomez [facility] LAB BLOOD ORDERABLES Final Resu lt Performing Organization Address [facility] Co de Phone Number [facility] [address] * C-Reactive Protein (01/29/2025 5:55 AM EDT) [facility] CRP 4.1 1.0 - 10.0 mg/L 01/29/2025 7:13 AM EDT [facility] Plasma 01/29/2025 5:55 AM EDT 01/29/2025 6:41 AM EDT Feliciano Gomez [facility] LAB BLOOD ORDERABLES Final Resu lt Performing Organization Address [facility] de Phone Number [facility] [address] [facility] * Giardia Cryptosporidium Antigens (Feces) (01/28/2025 9:27 PM EDT) [facility] Cryptosporidium Ag Negative Negative 2024 8:03 AM EDT [facility] Giardia Ag Negative Negative 01/29/2025 8:03 AM EDT [facility] Comment: Detection of Giardia and Cryptosporidium antigen is more sensitive and specific than microscopy. Because antigens are shed continuously, repeat testing is rarely warranted. Feces 01/28/2025 9:27 PM EDT 01/28/2025 10:07 PM EDT Comment:F Ruby Chiang MD MICROBIOLOGY - GENERAL ORDERAB LES Final Result Performing Organization Address [facility] Co de Phone Number [facility] [address] * Ova and Parasite Comprehensive w/Giardia (Feces) (01/28/2025 9:27 PM EDT) Pathologist [facility] O & P Method: Concentration and Trichrome Stain [facility] Results No Amoeba, Ova, Or Parasites Seen. -- O and P examination of additional specimens is recommended only for symptomatic patients, immunosuppressed patients or those with an appropriate travel history. [facility] Feces FECES / Unknown 01/28/2025 9 :27 PM EDT 01/28/2025 10:07 PM EDT Comment:F Ruby Chiang MD MICROBIOLOGY - GENERAL ORDERAB LES Final Result Performing Organization Address [facility] Co de Phone Number [facility] [address] * (ABNORMAL) Clostridium difficile DNA Amplification (01/28/2025 1:21 PM EDT) Pathologist [facility] Clost. Diff DNA Amp. Positive( A) Negative 01/28/2025 11:22 PM EDT [facility] Comment:Positive indicates t oxigenic C. difficile was detected in the sample. Negative indicates that toxigenic C. difficile was not detected above the limit of the detection of the assay. The test methodology is a FDA approved DNA amplification assay. Stool, Liquid FECES / Unknown 01/28/2025 1:21 PM EDT 01/28/2025 1:48 PM EDT Comment:F Feliciano Gomez CNP BODY FLUIDS AND STOOLS ORDERABL ES Final Result Performing Organization Address [facility] de Phone Number [facility] [address] * Clostridium Difficile Toxin A/B Antigen (01/28/2025 1:21 PM EDT) Pathologist [facility] CDIFF Tox AGN Negative Negative 01/28/2025 10:35 PM EDT [facility] Comment:C. difficile nucleic acid testing is positive but toxin antigen testing is negative. Please note that antigen testing is less sensitive than nucleic acid testing and cannot distinguish disease from colonization. Interpret results with caution and in the context of the clinical presentation of the patient. Stool, Liquid 01/28/2025 1:2 1 PM EDT 01/28/2025 9:59 PM EDT Comment:F us Feliciano Gomez RESEARCH CLERK BODY FLUIDS AND STOOLS ORDERABL ES Final Result [facility] [address] [place] [address], [facility] * Phosphatidylethanol Confirmation, B (01/28/2025 7:14 AM EDT) Only the most recent of3 resultswithin the time period is included. PETH 16:0/18.1 (POPETH) 394 Cutoff: 10 ng/mL 01/30/2025 9:58 AM EDT [facility] Comment: Phosphatidylethanol (PEth) homologues result interpretation [...] Cutoff: 10 ng/mL 01/30/2025 9:58 AM EDT [facility] Comment: PEth 16:0/18:2 (PLPEth) Reference ranges are not well established PEth Interpretation Positive. 01/30 9:58 AM EDT [facility] Comment: ADDITIONAL INFORMATION This report is intended for use in clinical monitoring and management of patients. It is not intended for use in employment-related testing. This test was developed and its performance characteristics determined by [facility] in a manner consistent with CLIA requirements. This test has not been cleared or approved by the U.S. Food and Drug Administration. Test Performed by: [facility] - [address] [address] [place] [employer] Tech: Kathy Ortiz Ph.D.; CLIA# [id number] Whole Blood 01/28/2025 7:14 AM EDT 01/30/2025 9:58 AM EDT Carlton Hill MD LAB BLOOD ORDERABLES Final Result [facility] [address] [place] [id number], [facility] * CT Head WO contrast (01/28/2025 12:35 [...] Detected Not Detected 01/28/2025 3:11 AM EDT [facility] Shigella species Not Detected Not Detected 01/28/2025 3:11 AM EDT [facility] Vibrio Group (Vibrio cholerae, Vibrio parahaemolyticus) Not Detected Not Detected 01/28/2025 3:11 AM EDT [facility] Yersinia enterocolitica Not Detected Not Detected 01/28/2025 3:11 AM EDT [facility] Shiga toxin 1 Not Detected Not Detected 01/28/2025 3:11 AM EDT [facility] Shiga toxin 2 Not Detected Not Detected 01/28/2025 3:11 AM EDT [facility] Norovirus Not Detected Not Detected 01/28/2025 3:11 AM EDT [facility] Rotavirus Not Detected Not Detected 01/28/2025 3:11 AM EDT [facility] Comment: The Enteric Pathogen Panel is [...] AND STOOLS ORDERABLE S Final Result [facility] [address] [facility] [place] [id number], [facility] * Respiratory viral panel (01/27/2025 9:30 PM EDT) Adenovirus Not Detected Not Detected 01/28/2025 12:20 AM EDT [facility] Coronavirus (229E,HKU1,NL63,OC 43) Not Detected Not Detected 01/28/2025 12:20 AM EDT [facility] SARS-CoV-2 Not Detected Not Detected 01/28/2025 12:20 AM EDT [facility] Human Metapneumovirus Not Detected Not Detected 01/28/2025 12:20 AM EDT [facility] Human Rhinovirus/Enterov irus Not Detected Not Detected 01/28/2025 12:20 AM EDT [facility] Influenza A Not Detected Not Detected 01/28/2025 12:20 AM EDT [facility] Influenza A H1 Not Detected Not Detected 01/28/2025 12:20 AM EDT [facility] Influenza A/H1-2009 Not Detected Not Detected 01/28/2025 12:20 AM EDT [facility] Influenza A H3 Not Detected Not Detected 01/28/2025 12:20 AM EDT [facility] Influenza B Not Detected Not Detected 01/28/2025 12:20 AM EDT [facility] Parainfluenza 1 Not Detected Not Detected 01/28/2025 12:20 AM EDT [facility] Parainfluenza 2 Not Detected Not Detected 01/28/2025 12:20 AM EDT [facility] Parainfluenza 3 Not Detected Not Detected 01/28/2025 12:20 AM EDT [facility] Parainfluenza 4 Not Detected Not Detected 01/28/2025 12:20 AM EDT [facility] Resp. Syncycial Virus A Not Detected Not Detected 01/28/2025 12:20 AM EDT [facility] Resp. Syncycial Virus B Not Detected Not Detected 01/28/2025 12:20 AM EDT [facility] Chlamydia pneumoniae Not Detected Not Detected 01/28/2025 12:20 AM EDT [facility] Mycoplasma pneumoniae Not Detected Not Detected 01/28/2025 12:20 AM EDT [facility] Comment: The Respiratory Viral-Bacterial Panel is [...] sent to the [place] [facility] in accordance with state requirements. For a fact sheet for healthcare providers, see https://www.fda.gov/media/158292/download. For a fact sheet for patients, see https://www.fda.gov/media/653336/download. Nasopharyngeal Swab NASOPHARYNGEAL STRUCTURE / Unknown 01/27/2025 9:30 PM EDT 01/27/2025 10:20 PM EDT Shelby Blanco MD BODY FLUIDS AND STOOLS ORDERABLE S Final Result [facility] [address] * Lactic acid, venous, whole blood (01/27/2025 9:30 PM EDT) Lactate, Shakeel 1.4 0.5 - 1.6 mmol/L 01/27/2025 9:42 PM EDT [facility] Blood, Venous 01/27/2025 9:3 0 PM EDT 01/27/2025 9:39 PM EDT us Pamela JACOME LAB BLOOD ORDERABLES Final Res ult [facility] [address] * Histoplasma/Blastomyces Ag, EIA, U (01/27/2025 8:44 PM EDT) Pathologist [facility] Histoplasma/Blasto myces Ag Result (Urine) Not Detected Not Detected 01/31/2025 11:06 AM EDT [facility] Comment: No antigen from Histoplasma or Blastomyces detected. False negative results may occur depending on extent of disease, and/or site of infection. Repeat testing on a new specimen if clinically indicated. Histoplasma/Blasto myces Ag Value (Urine) Not Detected ng/mL 01/31/2025 11:06 AM EDT [facility] Comment: ADDITIONAL INFORMATION This test was developed and its performance characteristics determined by [facility] in a manner consistent with CLIA requirements. This test has not been cleared or approved by the U.S. Food and Drug Administration. Test Performed by: [facility] - [facility] [address] [place] [address] [employer] Tech: Kathy Ortiz Ph.D.; CLIA# [id number] Urine URINE SPECIMEN / Unknown 01/27/2025 8:44 PM EDT 01/31/2025 11:06 AM EDT us Shelby Blanco MD URINE ORDERABLES Final Result Performing Organization Address City/[facility]/ZIP Co de Phone Number [facility] [address] * Strep Pneumo-Legionella Urine Antigen (01/27/2025 8:44 PM EDT) Strept Pneumo Ag Negative Negative 01/27/2025 11:12 PM EDT [facility] Legionella Antigen Negative Negative 01/27/2025 11:12 PM EDT [facility] Urine URINE SPECIMEN / Unknown 01/27/2025 8:44 PM EDT 01/27/2025 10:21 PM EDT Narrative [facility] - 01/27/2025 11:12 PM EDT Positive indicates detection of either Streptococcus pneumoniae antigen or Legionella pneumophila serogroup 1 antigen. Negative results do not rule out pneumococcal infection or infection with L. pneumophila serogroup 1, other serogroups of L. pneumophila, or other Legionella species. Shelby Blanco MD URINE ORDERABLES Final Result Performing Organization Address [facility] Co de Phone Number [facility] [address] * (ABNORMAL) Urinalysis, Microscopic (01/27/2025 8:44 PM EDT) RBC, UA <1 0 - 3 /HPF 01/27/2025 9:32 PM EDT [facility] WBC, UA 1 0 - 5 /HPF 01/27/2025 9:32 PM EDT [facility] Hyaline Casts, UA 75(H) 0 - 2 /LPF 01/27/2025 9:32 PM EDT [facility] Mucus, UA Present(A) None Seen /HPF 01/27/2025 9:32 PM EDT [facility] Urine 01/27/2025 8:44 PM EDT 01/27/2025 9:01 PM EDT Pamela JACOME URINE ORDERABLES Final Result [facility] [address] * (ABNORMAL) Urinalysis-Macroscopic w/Rfx to Microsco (01/27/2025 8:44 PM EDT) Color, UA Yellow Yellow,Straw 01/27/2025 9:32 PM EDT [facility] Clarity, UA Clear Clear 01/27/2025 9:32 PM EDT [facility] Specific [place], UA 1.015 1.005 - 1.035 01/27/2025 9:32 PM EDT [facility] pH, UA 5.5 5.0 - 8.0 01/27/2025 9:32 PM EDT [facility] Protein, UA 30(A) Negative mg/dL 01/27/2025 9:32 PM EDT [facility] Glucose, UA Negative Negative mg/dL 01/27/2025 9:32 PM EDT [facility] Ketones, UA 20(A) Negative mg/dL 01/27/2025 9:32 PM EDT [facility] Bilirubin, UA Negative Negative 01/27/2025 9:32 PM EDT [facility] Blood, UA Negative Negative 01/27/2025 9:32 PM EDT [facility] Nitrite, UA Negative Negative 01/27/2025 9:32 PM EDT [facility] Urobilinogen, UA <2.0 0.2 - 1.9 mg/dL 01/27/2025 9:32 PM EDT [facility] Leukocyte Esterase, UA Negative Negative 01/27/2025 9:32 PM EDT [facility] Urine 01/27/2025 8:44 PM EDT 01/27/2025 8:53 PM EDT us Pamela JACOME URINE ORDERABLES Final Result [facility] [address] * Histoplasma/Blastomyces Ag, EIA, S (01/27/2025 8:20 PM EDT) Histoplasma/Blasto myces Ag Result (Serum) Not Detected Not Detected 01/30/2025 12:49 PM EDT [facility] Comment: No antigen from Histoplasma or Blastomyces detected. False negative results may occur depending on extent of disease, and/or site of infection. Repeat testing on a new specimen if clinically indicated. Histoplasma/Blasto myces Ag Value (Serum) Not Detected ng/mL 01/30/2025 12:49 PM EDT [facility] Comment: ADDITIONAL INFORMATION This test was developed and its performance characteristics determined by [facility] in a manner consistent with CLIA requirements. This test has not been cleared or approved by the U.S. Food and Drug Administration. Test Performed by: [facility] [place] [address] [employer] Tech: Kathy Ortiz Ph.D.; CLIA# [id number] Serum SERUM SPECIMEN / Unknown 01/27/2025 8:20 PM EDT 01/30/2025 12:49 PM EDT Comment:S us Shelby Blanco MD LAB BLOOD ORDERABLES Final Resul t [facility] [address] * Fungitell (01/27/2025 8:20 PM EDT) Fungitell Value <31.25 pg/mL 4:19 PM EDT [facility] Reference Value Comment 4:19 PM EDT [facility] Comment:Negative: <60, Posit bradley: >/=60 Clinical Relevance Notes 2024 4:19 PM EDT [facility] Comment: The Fungitell test is indicated [...] Cryptococcus, which produce very low levels of (1,3)-zrmp-V-jbtpyj. This test will not detect the zygomycetes, such as Absidia, Blastomyces, Mucor, and Rhizopus, which are not known to produce (1,3)-jlzz-M-yxqmup. In addition, the yeast phase of Blastomyces dermatitidis produces little (1,3)-uvsn-T-slzsum and may not be detected by the assay. Disclaimer: Notes 02/02/2025 4:19 PM EDT [facility] Comment: This test has been cleared or approved for diagnostic use by the U.S. Food and Drug Administration. Performance characteristics were verified by [employer]. Electronically signed by: Comment 02/02/2025 4:19 PM EDT [facility] Comment:Usha Landin Result Comment 02/03/20 4:19 PM EDT [facility] Comment:Negative Interpretation Notes 02/02/2025 4:19 PM EDT [facility] Comment: (1,3) Dkby-G-Tdgdba was NOT DETECTED in the sample. Reasons for negative results could include the patient being in the early stage of infection before detectable levels of (1,3) Cxaf-W-Qytbea are present. Clinical diagnosis should be made in the context of the patient's complete medical history. Serum 01/27/2025 8:20 PM EDT 02/02/2025 5:07 PM EDT Narrative [facility] - 02/02/2025 5:07 PM EDT PERFORMED AT: [employer] [address] [place] [address] [address] [place], [place] [id number] [employer]PERATIONAL TEST: Cyril Porter, PhD PHONE: [phone] us Shelby Blanco MD LAB BLOOD ORDERABLES Final Resul t [facility] [address] [place], [place] [address] * Cryptococcus Ag (01/27/2025 8:20 PM EDT) Crypto Ag, Ser Negative Negative 01/27/2025 11:41 PM EDT [facility] Crypto Ag Titer, Ser Not Applicable 01/27/2025 11:41 PM EDT [facility] Serum SERUM SPECIMEN / Unknown 01/27/2025 8:20 PM EDT 01/27/2025 10:04 PM EDT Comment:S Shelby Blanco MD LAB BLOOD ORDERABLES Final Resul t Performing Organization Address City/[facility]/ZIP Co de Phone Number [facility] [address] [facility]. [address] * BK PCR, Blood (Renal Txp and BMT only) (01/27/2025 8:20 PM EDT) BKV IU DNA Quant, Blood Not Detected IU/mL 01/29/2025 1:48 PM EDT [facility] Comment: Beginning August 23, 2021, [facility] has transitioned BK viral load [...] log 10 IU/mL 01/29/2025 1:48 PM EDT [facility] Comment:BKV DNA Not Detected Plasma 01/27/2025 8:20 PM EDT 01/27/2025 9:49 PM EDT Shelby Blanco MD LAB BLOOD ORDERABLES Final Resul t [facility] [address] [facility]. [address] * Cytomegalovirus (CMV) PCR (01/27/2025 8:20 PM EDT) CMV DNA Qnt Not Detected IU/mL 01/29/2025 12:09 PM EDT [facility] Comment:Test methodology for CMV DNA quantification is an FDA-approved nucleic acid amplification assay. The Lower Limit of Quantitation (LLOQ) and Limit of Detection (LoD) for EDTA plasma is 34.5 IU/mL. The linear range of the assay is 34.5- 10,000,000 IU/mL. The reference range is Not Detected. Log10 CMV Qn DNA PI See Note log 10 IU/mL 01/29/2025 12:09 PM EDT [facility] Comment:CMV DNA not detected Plasma 01/27/2025 8:20 PM EDT 01/27/2025 9:49 PM EDT us Shelby Blanco MD LAB BLOOD ORDERABLES Final Resul t [facility] [address] * Katie-Schafer Virus (EBV) PCR (01/27/2025 8:20 PM EDT) Pathologist [facility] EBV DNA, Quantitative PCR Not Detected IU/mL 01/28/2025 10:54 AM EDT [facility] EBV DNA, Log10 See Note log 10 IU/mL 01/28/2025 10:54 AM EDT [facility] Comment: Beginning September 05, 2022, [facility] has transitioned EBV viral load [...] ORDERABLES Final Resul t Performing Organization Address [facility] Co de Phone Number [facility] [address] [facility]. [address] * Aspergillus Ag (01/27/2025 8:20 PM EDT) Aspergillus Ag. 0.03 0.00 - 0.49 Index 01/30/2025 5:54 PM EDT [facility] Serum SERUM SPECIMEN / Unknown 01/27/2025 8:20 PM EDT 01/31/2025 4:23 AM EDT Comment:S Shelby Blanco MD BODY FLUIDS AND STOOLS ORDERABLE S Final Result Performing Organization Address [facility] Co de Phone Number [facility] [address] [place] [address]. [address] * Blood culture-Peripheral (Blood) (01/27/2025 8:20 PM EDT) Only the most recent of2 resultswithin the time period is included. Culture Result No Growth After 5 Days [facility] Blood BLOOD SPECIMEN / Unknown 01/27/2025 8:20 PM EDT 01/27/2025 9:57 PM EDT us Pamela JACOME MICROBIOLOGY - GENERAL ORDERAB LES Final Result Performing Organization Address [facility] Co de Phone Number [facility] [address] [place] [address]. [address] * (ABNORMAL) Lipase (01/27/2025 8:20 PM EDT) Lipase 3(L) 4 - 82 U/L 01/27/2025 9:0 3 PM EDT [facility] Plasma 01/27/2025 8:20 PM EDT 01/27/2025 8:34 PM EDT Pamela Pattersonzina JACOME LAB BLOOD ORDERABLES Final Res ult Performing Organization Address City/[facility]/ZIP Co de Phone Number [facility] [address] * Hemoglobin A1c (01/27/2025 8:20 PM EDT) Hemoglobin A1C 4.0 4.0 - 5.6 % 01/27/2025 11:49 PM EDT [facility] Comment: Hemoglobin A1c [...] PM EDT 01/27/2025 8:57 PM EDT Narrative [facility] - 01/27/2025 11:49 PM EDT A1C project?->Yes Pamela JACOME LAB BLOOD ORDERABLES Final Res ult Performing Organization Address City/[facility]/ZIP Co de Phone Number [facility] [address] * Basic metabolic panel (01/27/2025 8:20 PM EDT) Sodium 136 133 - 146 mmol/L 01/27/2025 9:03 PM EDT [facility] Potassium 4.0 3.5 - 5.3 mmol/L 01/27/2025 9:03 PM EDT [facility] Chloride 100 98 - 110 mmol/L 01/27/2025 9:03 PM EDT [facility] CO2 25 21 - 33 mmol/L 01/27/2025 9:03 PM EDT [facility] Anion Gap 11 3 - 16 mmol/L 01/27/2025 9:03 PM EDT [facility] BUN 16 7 - 25 mg/dL 01/27/2025 9:03 PM EDT [facility] Creatinine 1.02 0.60 - 1.30 mg/dL 01/27/2025 9:03 PM EDT [facility] Glucose 93 70 - 100 mg/dL 01/27/2025 9:03 PM EDT [facility] Calcium 9.7 8.6 - 10.3 mg/dL 01/27/2025 9:03 PM EDT [facility] Osmolality, Calculated 283 278 - 305 mOsm/kg 01/27/2025 9:03 PM EDT [facility] EGFR >90 01/27/2025 9:03 PM EDT [facility] Comment: As of 2021, the estimated [...] JACOME LAB BLOOD ORDERABLES Final Res ult [facility] [address] [place] [address], [facility] * X-ray Chest PA and Lateral (01/27/2025 [...] DIAGNOSTIC IMAGING ORDERAB LES Final Result * Urine Protein, Tot, Random (w/o Creat) (01/20/2025 12:03 PM EDT) Only the most recent of7 resultswithin the time period is included. Total Protein, Ur 25.0 Urine Narrative Resulting Agency Comment [facility] Historical Provider URINE ORDERABLES Final Re sult * Creatinine, urine, random (01/20/2025 12:03 PM EDT) Only the most recent of7 resultswithin the time period is included. Creatinine, Urine 78 Urine Narrative Resulting Agency Comment [facility] Result [facility] Provider URINE ORDERABLES Final Re sult * (ABNORMAL) Urinalysis w/Rfl to Microscopic (01/20/2025 12:03 PM EDT) Only the most recent of9 resultswithin the time period is included. Glucose, UA Negative Negative Ketones, UA Negative Negative Blood, UA Negative Negative Bilirubin, UA Negative Negative Urobilinogen, UA Normal Normal Protein, UA Trace(A) Negative Nitrite, UA Negative Negative pH, UA 5.5 4.5 - 8.0 Specific Ripley, UA 1.020 1.005 - 1.030 Clarity, UA Clear Clear Color, UA Yellow Light Yellow, Yellow Urine Narrative Resulting Agency Comment [facility] Result [facility] URINE ORDERABLES Final Re sult * (ABNORMAL) CBC and differential (01/20/2025 12:03 PM EDT) Only the most recent of16 resultswithin the time period is included. Hemoglobin 12.5(A) 13.5 - 17.5 g/dL Hematocrit [...] 2.2 10^3/mL Blood Narrative Resulting Agency Comment [facility] Result [facility] LAB BLOOD ORDERABLES Denisse l Result * (ABNORMAL) Renal Function Panel w/o EGFR (01/20/2025 12:03 PM EDT) Only the most recent of15 resultswithin the time period is included. Pathologist [facility] Glucose 101 BUN 14 CO2 23(A) 13 - 22 mmol/L Creatinine 1.10 Potassium 3.8 Sodium 141 Chloride 106 Phosphorus 4.2 2.5 - 4.9 mg/dL Calcium 10.2 EGFR 74 mg/dL Albumin 4.9 3.5 - 5.0 g/dL Blood Narrative Resulting Agency Comment [facility] Result [facility] Provider MD LAB BLOOD ORDERABLES Denisse l Result * Phatidylethanol (PEth) (01/14/2025 11:03 AM EDT) Pathologist [facility] Phosphatidylethanol (PEth) Positive 311 Whole Blood Result [facility] Provider MD LAB BLOOD ORDERABLES Denisse l Result * Urine culture (01/06/2025 12:23 PM EDT) Only the most recent of4 resultswithin the time period is included. [facility] Urine Culture, Comprehensive no growth URINE SPECIMEN / Unknown Result [facility] MD MICROBIOLOGY - GENERAL OR DERABLES Final Result * BK Virus Quantitative by PCR, Blood (01/05/2025 9:27 AM EDT) Only the most recent of2 resultswithin the time period is included. Pathologist [facility] BK Virus Quant PCR PL Negative Plasma Result [facility] MD LAB BLOOD ORDERABLES Denisse l Result * Protime-INR (12/23/2024 9:53 AM EDT) Only the most recent of4 resultswithin the time period is included. Pathologist [facility] INR 0.94 0.9 - 1.1 Protime 10.5 Plasma us Harvey Domínguez III, MD LAB BLOOD ORDERABLE S Final Result * Hepatitis B Virus (HBV), PCR, Quant (11/25/2024 8:42 AM EDT) Hep B Viral DNA IU/ML Not Detected IU/mL 11/28/2024 10:09 AM EDT [facility] Comment:Test methodology for HBV DNA quantification is an FDA-approved nucleic acid amplification assay. The lower limit of quantitation (LLOQ) is 10 IU/mL. The linear range of the assay is 10-1,000,000,000 IU/mL. The limit of detection (LoD) for plasma is 2.7 IU/mL. The reference range is Not Detected. log 10 HBV as IU/mL See Note log 10 IU/mL 11/28/2024 10:09 AM EDT [facility] Comment:HBV DNA not detected . Plasma 11/25/2024 8:42 AM EDT 11/25/2024 10:59 AM EDT Narrative [facility] - 11/28/2024 10:09 AM EDT One time lab order to be collected with next set of standing liver transplant labs. UNOS requirement. Please fax all results to [phone]. Call critical results to [phone]. Harvey Domínguez III, MD LAB BLOOD ORDERABLE S Final Result [facility] [address] [place], [place] [address] * HIV-1 RNA, Quantitative, PCR (11/25/2024 8:42 AM EDT) HIV 1 Copies Not Detected copies/mL 11/26/2024 10:57 AM EDT [facility] Comment:Test methodology for HIV-1 RNA quantification is an FDA-approved nucleic acid amplification assay. The Lower Limit of Quantitation (LLoQ) is 20 copies/mL. The linear range is 20- to 10,000,000 copies/mL. The Limit of Detection (LoD) is 13.2 copies/mL. The reference range is Not Detected. HIV [id number] See Note [id number] /[id number] 11/26/2024 10:57 AM EDT [facility] Comment:HIV-1 RNA not detect ed. Plasma 11/25/2024 8:42 AM EDT 11/25/2024 10:59 AM EDT [facility] - 11/26/2024 10:57 AM EDT One time lab order to be collected with next set of standing liver transplant labs. UNOS requirement. Please fax all results to [phone]. Call critical results to [phone]. us Harvey Domínguez III, MD LAB BLOOD ORDERABLE S Final Result [facility] [address] [place] [address], [facility] * Hepatitis C RNA, Quantitative PCR (11/25/2024 8:42 AM EDT) Tubett Units Not Detected IU/mL 11/27/2024 11:35 AM EDT [facility] Comment:Test methodology for HCV RNA quantification is an FDA-approved nucleic acid amplification assay. The Lower Limit of Quantitation (LLOQ) is 15 IU/mL. The linear range of the assay is 15-100,000,000 IU/mL. The Limit of Detection (LoD) is 12.0 IU/mL for EDTA plasma. The reference range is Not Detected. IU log10 See Note log 10 IU/mL 11/27/2024 11:35 AM EDT [facility] Comment:HCV RNA not detected . Plasma 11/25/2024 8:42 AM EDT 11/25/2024 10:59 AM EDT [facility] - 11/27/2024 11:35 AM EDT One time lab order to be collected with next set of standing liver transplant labs. UNOS requirement. Please fax all results to [phone]. Call critical results to [phone]. us Harvey Domínguez III, MD LAB BLOOD ORDERABLE S Final Result [facility] [address] [place] [id number], [facility] * (ABNORMAL) Comprehensive metabolic panel (11/25/2024 8:42 AM EDT) Sodium 141 133 - 146 mmol/L 11/25/2024 10:20 AM EDT [facility] Potassium 4.3 3.5 - 5.3 mmol/L 11/25/2024 10:20 AM EDT [facility] Chloride 106 98 - 110 mmol/L 11/25/2024 10:20 AM EDT [facility] CO2 23 21 - 33 mmol/L 11/25/2024 10:20 AM EDT [facility] Anion Gap 12 3 - 16 mmol/L 11/25/2024 10:20 AM EDT [facility] BUN 43(H) 7 - 25 mg/dL 11/25/2024 10:20 AM EDT [facility] Creatinine 1.59(H) 0.60 - 1.30 mg/dL 11/25/2024 10:20 AM EDT [facility] Glucose 93 70 - 100 mg/dL 11/25/2024 10:20 AM EDT [facility] Calcium 10.0 8.6 - 10.3 mg/dL 11/25/2024 10:20 AM EDT [facility] Total Bilirubin 0.7 0.0 - 1.5 mg/dL 11/25/2024 10:20 AM EDT [facility] AST 9(L) 13 - 39 U/L 11/25/2024 10:20 AM EDT [facility] ALT 22 7 - 52 U/L 11/25/2024 10:20 AM EDT [facility] Alkaline Phosphatase 198(H) 36 - 125 U/L 11/25/2024 10:20 AM EDT [facility] Total Protein 7.0 6.4 - 8.9 g/dL 11/25/2024 10:20 AM EDT [facility] Albumin 4.5 3.5 - 5.7 g/dL 11/25/2024 10:20 AM EDT [facility] Osmolality, Calculated 303 278 - 305 mOsm/kg 11/25/2024 10:20 AM EDT [facility] EGFR 56 11/25/2024 10:20 AM EDT [facility] Comment:As of 2021, the estimated GFR [...] ORDERABLES Final Resu lt Performing Organization Address [facility]/ZIP Co de Phone Number [facility] [address] [facility] * (ABNORMAL) Post Kidney Transplant Urine Culture (11/11/2024 9:13 AM EDT) Only the most recent of2 resultswithin the time period is included. Culture Result Enterococcus faecium(A) [facility] Comment: <1,000 cfu/mL Identified by MALDI-TOF MS No Further Workup Midstream Urine URINE SPECIMEN / Unknown 11/11/2024 9:13 AM EDT 11/11/2024 10:17 AM EDT Caron Santos RESEARCH CLERK MICROBIOLOGY - GENERAL OR DERABLES Final Result Performing Organization Address [facility] Co de Phone Number [facility] [address] [facility] * Protein / creatinine ratio, urine (11/11/2024 9:13 AM EDT) Only the most recent of2 resultswithin the time period is included. Creatinine, Urine 71.40 mg/dL 11/11/2024 10:38 AM EDT [facility] Comment:Reference range not established for this test. Total Protein, Ur 28 mg/dL 11/11/2024 10:38 AM EDT [facility] Comment:Reference range not established for this test. Prot/Creat Ratio, Ur 0.39 ratio 11/11/2024 10:38 AM EDT [facility] Urine 11/11/2024 9:13 AM EDT 11/11/2024 10:12 AM EDT us Caron Santos RESEARCH CLERK URINE ORDERABLES Final Re sult [facility] [address] * EKG - scan (11/03/2024 9:07 AM EDT) us Scanning [employer] SCAN DOCS - NO RESULTS Final Res ult * Blood Transfusion - scan (11/03/2024 8:24 AM EDT) us Scanning [employer] SCAN DOCS - NO RESULTS Final Res ult * Perfusion Record - scan (11/03/2024 8:24 AM EDT) us Scanning [employer] SCAN DOCS - NO RESULTS Final Res ult * Hepatitis C Antibody (10/25/2024 10:17 PM EDT) HCV Ab Nonreactive Nonreactive 10/25/2024 11:16 PM EDT [facility] Comment:Health Department no tified in accordance with reportable infectious disease guidelines. Serum 10/25/2024 10:1 7 PM EDT 10/25/2024 10:17 PM EDT Narrative [facility] - 10/25/2024 11:16 PM EDT Antibodies to HCV not detected; does not exclude the possibility of exposure to HCV. us Aysha Gill MD LAB BLOOD ORDERABLES F inal Result [facility] [address] * TSH (Thyroid Stimulating Hormone) (10/07/2024 6:37 PM EDT) TSH 0.81 0.45 - 4.12 uIU/mL 10/07/2024 8:17 PM EDT [facility] Serum 10/07/2024 6:37 PM EDT 10/07/2024 6:50 PM EDT us Gerri Peterson MD LAB BLOOD ORDERABLES Final Resu lt Performing Organization Address [facility] Co de Phone Number [facility] [address] [facility] from Last 3 Months or Most Recently Relevant to Health Maintenance Additional Health Concerns Infection Onset Date Last Indicated C. difficile 01/28/2025 01/28/2025 Insurance [facility] Member Subscriber Plan / Payer (Ef fective 2024-Present) Name:Julien Anderson Relation to Subscriber:Self Name:Julien Anderson Payer ID:[id number] (NAIC) Group ID:[facility] COMMERCIAL Type:Not on file Address: [address] [address] [place] [address] [facility] Member Subscriber Plan / Payer (Ef fective 2024-Present) Name:Julien Anderson Relation to Subscriber:Self Name:Julien Anderson Payer ID:[id number] ([facility]) Group ID:[facility] COMMERCIAL Type:Not on file Address: [address] [address] [place] [address] [employer] Member Subscriber Plan / Payer (Ef fective 2024-2025) Name:JustinLanke Relation to Subscriber:Self Name:JustinLan reyeske Payer ID:[id number] Group ID:Not on file Type:Transplant Address: [address] [place] [address] Advance Directives For more information, please contact: [phone] * Full Code (Latest Code Status on File) Date Activated Date Inactivated Comments 01/27/2025 10:58 PM 01/30/2025 6:31 PM * Full Code Date Activated Date Inactivated Comments 10/28/2024 11:13 AM 11/02/2024 10:23 PM * Full Code Date Activated Date Inactivated Comments 10/25/2024 8:22 PM 10/26/2024 6:05 AM * Full Code Date Activated Date Inactivated Comments 10/05/2024 11:47 PM 10/17/2024 2:49 PM * Full Code Date Activated Date Inactivated Comments 09/03/2024 9:42 AM 09/09/2024 10:30 PM Care Teams Refractory Grinder Operator Relationship Specialty Start Date End Date Enedina Mcguire NP [address] [place] [address] PCP - General Internal Medicine 10/05/24 Maureen Pantoja, ЮЛИЯ Txp Post Coordinator Transplant Hepatology 10/28/24
--- OUTSIDE RECORDS SUMMARY | 2025-02-03 09:37 | XMS_ITS | Encounter Summary ---
Author Organization [facility] Address [address] [place] [id number] Care Team Providers Care Mechanic Sound Technician Name Role Phone Enedina Mcguire NP Primary Care Provider + [phone] Maureen Pantoja RN Unavailable Unavail able Source [...] release of HIV test results or diagnoses. [id number] Reason for Visit * Reason Comments Results Encounter Details Date Type Department Care Team (Late st Contact Info) Description 12/29/2024 Telephone [facility] Liver Transplant at [address] [address] Maureen Pantoja, RN Results Social [...] In the past 12 months has e [employer], gas, oil, or water [employer] threatened to shut off services in your [...] documented as of this encounter Care Teams Mechanic Sound Technician Relationship Specialty Start Date End Date Enedina Mcguire NP [address] [place] [address] PCP - General Internal Medicine 10/05/24 Maureen Pantoja, RN Txp Post Coordinator Transplant Hepatology 10/28/24 documented as of this encounter
--- OUTSIDE RECORDS SUMMARY | 2025-02-03 09:38 | XMS_ITS | Encounter Summary ---
Author Organization [facility] Address [address] [place] [address] Care Team Providers Care Senior Painter Name Role Phone Enedina Mcguire NP Primary Care Provider + [phone] Maureen Pantoja RN Unavailable Unavail able Source [...] release of HIV test results or diagnoses. [id number] Reason for Visit * Reason Comments Results Encounter Details Date Type Department Care Team (Riky st Contact Info) Description 01/16/2025 Telephone [facility] Liver Transplant at [address] [address] Maureen Pantoja, RN Results Social [...] In the past 12 months has e [employer], gas, oil, or water [employer] threatened to shut off services in your [...] Progress Notes * Maureen Pantoja RN - 01/23/2025 9:29 AM EDT PEth 311 Will route to Txp SW for follow-up. * Maureen Pantoja RN - 01/22/2025 7:19 AM EDT Per patient: I am continuing with the same dosages 3x/day, though I have missed a couple of the 3pm dosages * Maureen Pantoja RN - 01/19/2025 8:37 AM EDT FK 9.6 Urine culture and PEth still pending. Will route to Liver Txp Provider and Kidney Txp Team for further review and recommendations. * Maureen Pantoja RN - 01/16/2025 11:48 AM EDT Lab results from 01/14/25 reviewed. Cr 1.00; BUN 19. LFTs stable. Alk phos 49, AST/ALT 15. FK pending. Will follow-up. WBC 2.0 (from [...] as of this encounter Care Teams Senior Painter Relationship Specialty Start Date End Date Enedina Mcguire NP [address] [place] [address] PCP - General Internal Medicine 10/05/24 Maureen Pantoja, ЮЛИЯ Txp Post Coordinator Transplant Hepatology 10/28/24 documented as of this encounter
--- OUTSIDE RECORDS SUMMARY | 2025-02-03 09:38 | XMS_ITS | Encounter Summary ---
Author Organization [facility] Address [facility] [place] [address] Care Team Providers Care Shopping Investigator Name Role Phone Enedina Mcguire NP Primary Care Provider + [phone] Maureen Pantoja RN Unavailable Unavail able Source [...] release of HIV test results or diagnoses. [id number] Health Encounter Details Date Type Department Care Team (Latest Contact Info) Description 01/27/2025 Travel Social History Tobacco Use Types Packs/Day Years Used Date Smoking Tobacco: Former Cigarettes Smokeless Tobacco: Current Alcohol Use Standard Drinks/Week Comments Yes 0 (1 standard drink = 0.6 oz pure alcohol) History of alcohol abuse, reports no use in 3 week- typically endorses use as 4 glasses of wine a days Utilities Answer Date Recorded In the past 12 months has [employer], [employer], oil, or water [employer] threatened to shut off services in your [...] money to buy more. Never true 01/29/20 Within the past 12 months, t he [...] COVID-19 01/27/2025 01/27/2025 01/28/2025 12:20 AM EDT Assessment Noted Time PHQ-9 Depression Total Score: 2 12/11/19 9:00 AM EDT documented as of this encounter Care Teams Shopping Investigator Relationship Specialty Start Date End Date Enedina Mcguire NP [address] [place] [address] PCP - General Internal Medicine 10/05/24 Maureen Pantoja, ЮЛИЯ Txp Post Coordinator Transplant Hepatology 10/28/24 documented as of this encounter
--- OUTSIDE RECORDS SUMMARY | 2025-02-03 09:38 | XMS_ITS | Encounter Summary ---
Author Organization [employer] ([place], [place], [place], [place]) Address [address] [place] [address] Care Team Providers Care Phd Internship Name Role Phone Unavailable Primary Care Provider Unavaillia e Encounter Details Date Type Department Care Team (Late st Contact Info) Description 06/03/2018 Transcribed Document [facility] [place] [address] [place] [address] ProviderEbenezer MD [address] [place] [id number] Social History Tobacco Use Types Packs/Day Years [...] - Historical ProviderMD - 06/03/2018 1:05 PM KITCHENWHERE MAKER Patient: JULIEN ZELAYA Age: 33 years Sex: [...] EST Height Source Stated Height Entry Format [place] Height/Length, [place] (ft) 6 ft Height/Length [place] 4 Inch CLINICALHEIGHT 193.04 cm [place] Body Weight 85.74 kg Weight Source, ED Standing scale Weight Entry Format [place] Weight French lb 265 lb CLINICALWEIGHT 120.45 kg Body [...] 14:22 EST, Discharge to: Home. Prescriptions: Prescription Reservoir [facility] Pharm[facility]: Keflex 500 mg oral capsule (Prescribe): [...] Electronically signed by Luis Eduardo Ochoa Conversion Senior Linux Unix Engineer Cerner at 08/29/2022 6:34 PM CDT documented in this encounter Plan of Treatment Not on file documented as of this encounter Visit Diagnoses Not on filedocumented in this encounter
--- OUTSIDE RECORDS SUMMARY | 2025-02-03 09:38 | XMS_ITS | Referral Summary ---
Author Organization [employer] ([place], [place], [place], [place]) Address [address] [place] [address] Care Team Providers Care Meeting Facilitator Name Role Phone Unavailable Primary Care Provider [...]
--- OUTSIDE RECORDS SUMMARY | 2025-02-03 09:38 | XMS_ITS | Encounter Summary ---
Author Organization [facility] Address [address] [place] [address] Care Team Providers Care Frame Carver Spindle Name Role Phone Enedina Mcguire NP Primary Care Provider + [phone] Maureen Pantoja RN Unavailable Unavail able Source [...] release of HIV test results or diagnoses. [id number] Health Encounter Details Date Type Department Care Team (Late st Contact Info) Description 01/15/2025 Chart Note [facility] Liver Transplant at [address] [place] [phone] Marlene Ro MA 01/14 Labs entered from [facility] Social History Tobacco Use Types [...] In the past 12 months has e [employer], gas, oil, or water [employer] threatened to shut off services in your [...] Notes * Marlene Ro MA - 01/15/2025 12:06 PM EDT Images from the original note were not included. 01/14 Labs entered from [facility] documented in this encounter Plan of Treatment Not on file documented as of this encounter Procedures Procedure Name Priority Date/Time Associated Diagnosis Comments PHATIDYLETHANOL (PETH) Routine 11:03 AM EDT URINE PROTEIN, TOTAL, RANDOM (W/O CREATININE) Routine 01/14/2025 10:53 AM EDT HEPATIC FUNCTION PANEL Routine 10:53 AM EDT TACROLIMUS LEVEL Routine 01/14/2025 10:5 3 AM EDT CREATININE, URINE, RANDOM Routine 01/14/2025 10:53 AM EDT URINALYSIS W/RFL TO MICROSCOPIC Routine 01/14/2025 10:53 AM EDT CBC AND DIFFERENTIAL Routine 01/14/2025 10:53 AM EDT MAGNESIUM Routine 01/14/2025 10:53 AM EDT RENAL FUNCTION PANEL W/O EGFR Routine 01/14/2025 10:53 AM EDT documented in this encounter Results * Phatidylethanol (PEth) (01/14/2025 11:03 AM EDT) Phosphatidylethanol (PEth) Positive 311 Whole Blood us Historical Provider LAB BLOOD ORDERABLES Denisse l Result * Tacrolimus level (01/14/2025 10:53 AM EDT) Pathologist [facility] Tacrolimus Lvl 9.6 6 - 15 ng/mL Whole Blood Result [facility] Provider LAB BLOOD ORDERABLES Denisse l Result * (ABNORMAL) Magnesium (01/14/2025 10:53 AM EDT) [facility] Magnesium 1.2(A) 1.6 - 2.4 mg/dL Plasma Narrative Resulting Agency Comment [facility] Result [facility] LAB BLOOD ORDERABLES Denisse l Result * Renal Function Panel w/o EGFR (01/14/2025 10:53 AM EDT) [facility] Glucose 94 BUN 19 CO2 21 13 - 22 mmol/L Creatinine 1.00 Potassium 4.4 Sodium 140 Chloride 109 Phosphorus 4.8 2.5 - 4.9 mg/dL Calcium 9.5 EGFR 82 mg/dL Albumin 4.8 3.5 - 5.0 g/dL Blood Narrative Resulting Agency Comment [facility] Result [facility] LAB BLOOD ORDERABLES Denisse l Result * Creatinine, urine, random (01/14/2025 10:53 AM EDT) [facility] Creatinine, Urine 90 Urine Narrative Resulting Agency Comment [facility] Result [facility] Provider URINE ORDERABLES Final Re sult * Urinalysis w/Rfl to Microscopic (01/14/2025 10:53 AM EDT) [facility] Glucose, UA Negative Negative Ketones, UA Negative Negative Blood, UA Negative Negative Bilirubin, UA Negative Negative Urobilinogen, UA Normal Normal Protein, UA Negative Negative Nitrite, UA Negative Negative pH, UA 5.5 4.5 - 8.0 Specific [place], UA 1.020 1.005 - 1.030 Clarity, UA Clear Clear Color, UA Yellow Light Yellow, Yellow Urine Narrative Resulting Agency Comment [facility] Result [facility] Provider URINE ORDERABLES Final Re [...] 2.0 10^3/mL Blood Narrative Resulting Agency Comment [facility] Result [facility] LAB BLOOD ORDERABLES Denisse l Result * Urine Protein, Tot, Random (w/o Creat) (01/14/2025 10:53 AM EDT) Total Protein, Ur 13.0 Urine Narrative Resulting Agency Comment [facility] Result [facility] Provider URINE ORDERABLES Final Re sult * Hepatic Function Panel (01/14/2025 10:53 AM EDT) Bilirubin, Direct 0.2 Bilirubin, Indirect 0.5 Alkaline Phosphatase 49 ALT 15 AST 24 Total Bilirubin 0.7 Total Protein 6.8 Plasma Narrative Resulting Agency Comment [facility] Result [facility] Provider LAB BLOOD ORDERABLES Denisse l Result documented in this encounter Visit Diagnoses Not on filedocumented in this encounter Additional Health Concerns Infection Onset Date Last Indicated 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
--- OUTSIDE RECORDS SUMMARY | 2025-02-03 09:38 | XMS_ITS | Encounter Summary ---
Author Organization [facility] Address [address] [place] [address] Care Team Providers Care Senior Climate Advisor Name Role Phone Enedina Mcguire NP Primary Care Provider + [phone] Maureen Pantoja RN Unavailable Unavail able Source [...] release of HIV test results or diagnoses. [id number] Health Encounter Details Date Type Department Care Team (Late st Contact Info) Description 01/15/2025 Telephone [facility] Liver Transplant at [address] [phone] Marlene Ro MA Social History [...] Recorded In the past 12 months has [employer], gas, oil, or water [employer] threatened to shut off services in your [...] AM EDT I spoke with Gavin at [facility] about the phosphatidylethanol order tied to the patient???s registration. Although the order was found, it wasn???t sent to phlebotomy, so no test was done on 01/14. Due to this recurring issue, I contacted the stationary engineer supervisor, Gladys. We agreed I would notify the lab directly of one-time and standing orders and fax them at [phone] to prevent future errors. Gladys is also [...] as of this encounter Care Teams Senior Climate Advisor Relationship Specialty Start Date End Date Enedina Mcguire NP [address] [place] [address] PCP - General Internal Medicine 10/05/24 Maureen Pantoja, RN Txp Post Coordinator Transplant Hepatology 10/28/24 documented as of this encounter
--- OUTSIDE RECORDS SUMMARY | 2025-02-03 09:38 | XMS_ITS | Encounter Summary ---
Author Organization [facility] Address [address] [place] [address] Care Team Providers Care Vocational Nurse Name Role Phone Enedina Mcguire NP Primary Care Provider + [phone] Maureen Pantoja RN Unavailable Unavail able Source [...] release of HIV test results or diagnoses. [id number] Health Encounter Details Date Type Department Care Team (Late st Contact Info) Description 12/17/2024 Chart Note [facility] Liver Transplant at [address] [place] [phone] Marlene Ro MA 12/16 Labs entered [facility] Social History [...] In the past 12 months has e [employer], gas, oil, or water [employer] threatened to shut off services in your [...] 12/17/2024 10:44 AM EDT 12/16 Labs entered [facility] documented in [...] 2.4 mg/dL Plasma Narrative Resulting Agency Comment [facility] Historical Provider MD LAB BLOOD ORDERABLES Denisse l Result * (ABNORMAL) Renal Function Panel w/o EGFR (12/16/2024 10:05 AM EDT) Glucose 94 BUN 14 CO2 23(A) 13 - 22 mmol/L Creatinine 0.80 Potassium 4.3 Sodium 141 Chloride 108 Phosphorus 4.9 2.5 - 4.9 mg/dL Calcium 10.0 EGFR 107 mg/dL Albumin 4.4 3.5 - 5.0 g/dL Blood Narrative Resulting Agency Comment [facility] Result [facility] MD LAB BLOOD ORDERABLES Denisse l Result * Protime-INR (12/16/2024 10:05 AM EDT) Pathologist [facility] INR 0.95 0.9 - 1.1 Plasma Narrative Resulting Agency Comment [facility] Result [facility] MD [...] 4.8 10^3/mL Blood Narrative Resulting Agency Comment [facility] Result [facility] MD LAB BLOOD ORDERABLES Denisse l Result * Hepatic Function Panel (12/16/2024 10:05 AM EDT) Bilirubin, Direct 0.2 Bilirubin, Indirect 0.2 Alkaline Phosphatase 73 ALT 15 AST 19 Total Bilirubin 0.4 Total Protein 6.2 Plasma Narrative Resulting Agency Comment [facility] us Historical Provider LAB BLOOD ORDERABLES [...] as of this encounter Care Teams Vocational Nurse Relationship Specialty Start Date End Date Enedina Mcguire NP [address] [place] [address] PCP - General Internal Medicine 10/05/24 Maureen Pantoja, ЮЛИЯ Txp Post Coordinator Transplant Hepatology 10/28/24 documented as of this encounter
--- OUTSIDE RECORDS SUMMARY | 2025-02-03 09:38 | XMS_ITS | Encounter Summary ---
Author Organization [facility] Address [address] [place] [address] Care Team Providers Care Leather Goods Assembler Name Role Phone Enedina Mcguire NP Primary Care Provider [phone] Maureen Pantoja RN Unavailable Unavail able Source [...] release of HIV test results or diagnoses. [id number] Reason for Visit * Reason Comments Medication Refill Encounter Details Date Type Department Care Team (Late st Contact Info) Description 01/17/2025 Refill [facility] Liver Transplant at [address] [address] Harvey Domínguez III, MD [address] [place] [phone] Encounter for therapeutic drug monitoring; S/P liver transplant ([facility]-H[facility]); Hypomagnesemia; Kidney transplant recipient; Hypertension, unspecified type; [...] Date End Date Enedina Mcguire NP [address] [place] [address] PCP - General Internal Medicine 10/05/24 Maureen Pantoja, RN Txp Post Coordinator Transplant Hepatology 10/28/24 documented as of this encounter
--- OUTSIDE RECORDS SUMMARY | 2025-02-03 09:38 | XMS_ITS | Encounter Summary ---
Author Organization [employer] ([place], [place], [place], [place]) Address [address] [place] [address] Care Team Providers Care Cinder Worker Name Role Phone Unavailable Primary Care Provider Unavailabl e Encounter Details Date Type Department Care Team (Late st Contact Info) Description 06/03/2018 Transcribed Document [facility] [place] [address] [place] [address] ProviderEbenezer MD [address] [place], [place] [id number] Social History Tobacco Use Types Packs/Day Years [...] - Historical ProviderMD - 06/03/2018 12:08 PM PARTITION ASSEMBLER ED Assessment Entered On: 06/03/2018 14:51 EST Performed On: 06/03/2018 13:50 EST by Lizeth Almeida, SALES ENABLEMENT ANALYST Quick Look Assessment Level of Consciousness : Alert Affect/Behavior : Calm, Cooperative Orientation : Oriented x 4 Skin Color : Other: [place] Skin Temperature : Warm Skin Description : Dry Lizeth Almeida, RN - 06/03/2018 14:50 EST ED General-Functional Assess Communication Barrier : None Primary Language : Haitian Any Spiritual/Cultural Needs or Requests : No [...]
--- OUTSIDE RECORDS SUMMARY | 2025-02-03 09:38 | XMS_ITS | Encounter Summary ---
Author Organization [facility] Address [address] [place] [address] Care Team Providers Care Measurement Technician Name Role Phone Enedina Mcguire APRN Primary Care Provider + Reason for Visit * Reason Comments Med Refill Encounter Details Date Type Department Care Team ([facility] st Contact Info) Description 12/12/2024 Refill [facility] INTERNAL MEDICINE [address] [place] [address] Enedina Mcguire APRN [address] [place], [place] [id number] Acquired hypothyroidism; Secondary esophageal varices without bleeding [...] Recorded In the past 12 months has [employer], gas, oil, or water [employer] threatened to shut off services in your [...] Score 0 10/02/2022 [facility] - Occupational Stress Questionnaire Answer [...] [facility] PAIN MANAGEMENT [address] [address] Vazquez Christie PA-C [address] [place] [address] documented as of this encounter Visit Diagnoses Diagnosis Acquired hypothyroidism Unspecified hypothyroidism Secondary esophageal varices without bleeding documented in this encounter Additional Health Concerns Assessment Noted Time PHQ-2 Depression Total Score: 1 12/31/19 24 3:25 PM EDT documented as of this encounter Care Teams Measurement Technician Relationship Specialty Start Date End Date Enedian Mcguire APRN [address] [place] [address] PCP - General Nurse Practitioner 10/27/24 documented as of this encounter
--- OUTSIDE RECORDS SUMMARY | 2025-02-03 09:38 | XMS_ITS | Encounter Summary ---
Author Organization [facility] Address [address] [place] [address] Care Team Providers Care Talend Etl Developer Name Role Phone Enedina Mcguire NP Primary Care Provider + [phone] Maureen Pantoja RN Unavailable Unavail able Source [...] release of HIV test results or diagnoses. [id number] Health Encounter Details Date Type Department Care Team (Late st Contact Info) Description 12/18/2024 Refill [facility] Liver Transplant at [address] [place] [phone] Maureen Pantoja, RN Encounter for therapeutic drug monitoring; S/P liver transplant ([facility]); Hypomagnesemia; Kidney transplant recipient; Hypertension, unspecified type; [...] Recorded In the past 12 months has [employer], gas, oil, or water [employer] threatened to shut off services in your [...] liver transplant ([facility]) Hypomagnesemia Disorders of magnesium metabolism Kidney transplant [...] documented as of this encounter Care Teams Talend Etl Developer Relationship Specialty Start Date End Date Enedina Mcguire NP [address] [place] [address] PCP - General Internal Medicine 10/05/24 Maureen Pantoja, ЮЛИЯ Txp Post Coordinator Transplant Hepatology 10/28/24 documented as of this encounter
--- OUTSIDE RECORDS SUMMARY | 2025-02-03 09:38 | XMS_ITS | Encounter Summary ---
Author Organization [employer] ([place], [place], [place], [place]) Address [address] [place] [address] Care Team Providers Care Business Advisor Name Role Phone Unavailable Primary Care Provider Unavailabl e Encounter Details Date Type Department Care Team (Late st Contact Info) Description 06/03/2018 Transcribed Document [facility] [place] [address] [place] [address] ProviderEbenezer MD [address] [place] [address] Social History Tobacco Use Types [...] - Historical ProviderMD - 06/03/2018 3:04 PM RACK PRODUCTION WORKER [place] [address] [facility] [place] [address] PERSON INFORMATION Name JULIEN ZELAYA Age 33 Years 1985 Sex Male Language Qatari PCP SALLY EVERETT (REF) T Marital Status Single Med Service Emergency Medicine Acct# Arrival 06/03/2018 12:08:00 Visit Reason Finger laceration; CUT FINGERS Acuity 3 - Urgent LOS 000 02:56 Depart Date: 06/03/18 03:04 PM Address: [address] [facility] [phone] Comment: PROVIDER INFORMATION Provider Role Assigned Unassigned Lizeth Almeida, GAS BURNER OPERATOR Nurse 06/03/2018 12:39:09 DOMINIQUE BREWER PA-C ED [...] Return for suture/staple removal With: Address: When: SLALY (REF) MARGUERITE PURI # [address]C [address] [place], [place] [id number] [employer] Within 2 to 3 days Comment: documented in this encounter Plan of Treatment Not on file documented as of this encounter Visit Diagnoses Not on filedocumented in this encounter
--- OUTSIDE RECORDS SUMMARY | 2025-02-03 09:38 | XMS_ITS | Clinical Summary ---
Author Organization [facility] ([place], [place], [place], [place]) Address [address] [place] [address] Care Team Providers Care Water Restoration Technician Name Role Phone Unavailable Primary Care [...]
--- OUTSIDE RECORDS SUMMARY | 2025-02-03 09:38 | XMS_ITS ---
Author Organization [facility] Address [address] [place] [address] Care Team Providers Care Windows Server Specialist Name Role Phone Enedina Mcguire NP Primary Care Provider + [phone] Maureen Pantoja RN Unavailable Unavail able Transplant Episode Liver Recipient [facility] ([place], [place]) - [facility] Organ Received: Liver Transplanted on 10/26/2024 Marked as Active Follow-up on 10/26/2024 Liver CoordinatorMaureen Pantoja RN Phone: N/A Fax: N/A Email: N/A [place] Organ Diagnosis Organ Primary Contributory Liver Alcohol-Associated [...] N/A N/A Chris Orosco MD Referring Physician [phone] N/A Maureen Leeanna Pantoja, RN Txp Post Coordinator N/A N/A N/A NUBIA Barros Txp Box Coverer Hand N/A N/A N/A Harvey Domínguez III, MD Txp Surgeon [phone] N/A Mary Butler RN Txp Pre Coordinator N/A N/A N/A Events Post-Transplant Pre-Transplant Admitted: 10/25/2024 Referred: 08/13/2024 Transplanted: 10/26/2024 Evaluation began: Discharged: 11/02/2024 Committee: 10/14/2024 Center waitlisted: Pending Checklist Tasks (Due on or before 03/05/2025) Name Due Date Attached Appoint ment Social Work Consult 01/05/2025 Appointments (01/03/2025 - 03/05/2025) When With Visit Type Description 01/06/2025 Txp Hep - Paci, P Established Patient S/P liver transplant (CMS-HCC) (Primary Dx); Immunosuppression ([facility]-H[facility]); Kidney transplant recipient; Alcohol use disorder 01/06/2025 Txp Hep - Larry, S Established Patient Kidney transplant recipient (Primary Dx); Hypomagnesemia; Hyperphosphatemia; Immunosuppression (CMS-HCC); Viral disease exposure; Hypertension, unspecified type
--- OUTSIDE RECORDS SUMMARY | 2025-02-03 09:38 | XMS_ITS ---
Author Organization [facility] Address [address] [place] [address] Care Team Providers Care Aircraft Mechanic Armament Name Role Phone Enedina Mcguire NP Primary Care Provider [phone] Maureen Pantoja RN Unavailable Unavail able Transplant Episode Kidney Recipient [facility] ([place], [place]) - [facility] Organ Received: Left Kidney Transplanted on 10/27/2024 Marked as Active Follow-up on 10/27/2024 Kidney CoordinatorJosr Weber RN Phone: N/A Fax: N/A Email: N/A [place] Organ Diagnosis Organ Primary Contributory Kidney Hepatorenal [...] N/A N/A Flaquito Mayen MD Txp Surgeon [phone] N/A Bruno Gonzalez MD Txp Squeegee Tender [phone] N/A Yovanny Curran MD Referring Physician [phone] N/A Events Post-Transplant Pre-Transplant Admitted: 10/25/2024 Referred: 10/07/2024 Transplanted: 10/27/2024 Evaluation began: Discharged: 11/02/2024 Committee: 10/20/2024 Center waitlisted: 5
--- OUTSIDE RECORDS SUMMARY | 2025-02-03 09:38 | XMS_ITS | Encounter Summary ---
Author Organization [facility] Address [address] [place] [address] Care Team Providers Care Railroad Dining Car Steward/Stewardess Name Role Phone Enedina Mcguire NP Primary Care Provider + [phone] Maureen Pantoja RN Unavailable Unavail able Source [...] release of HIV test results or diagnoses. [id number] Reason for Visit * Reason Comments Results Encounter Details Date Type Department Care Team (Riky st Contact Info) Description 01/05/2025 Telephone [facility] Liver Transplant at [address] [address] Maureen Pantoja, RN Results Social [...] In the past 12 months has e [employer], gas, oil, or water [employer] threatened to shut off services in [...] this encounter Care Teams Railroad Dining Car Steward/Stewardess Relationship Specialty Start Date End Date Enedina Mcguire NP [address] [place] [address] PCP - General Internal Medicine 10/05/24 Maureen Pantoja, ЮЛИЯ Txp Post Coordinator Transplant Hepatology 10/28/24 documented as of this encounter
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
--- OUTSIDE RECORDS SUMMARY | 2025-02-03 09:38 | XMS_ITS | Encounter Summary ---
Author Organization [facility] Address [address] [place] [address] Care Team Providers Care Health Worker Name Role Phone Enedina Mcguire NP Primary Care Provider + [phone] Maureen Pantoja RN Unavailable Unavail able Source [...] release of HIV test results or diagnoses. [id number] Health Encounter Details Date Type Department Care Team (Late st Contact Info) Description 01/15/2025 Telephone [facility] Liver Transplant at [address] [address] Kaylin Willard MSW Social History [...] Recorded In the past 12 months has [employer], gas, oil, or water [employer] threatened to shut off services in your [...] continue to utilize these supports. NUBIA Barros, [facility] Transplant Embosser Operator documented in this encounter Plan of [...] as of this encounter Care Teams Health Worker Relationship Specialty Start Date End Date Enedina Mcguire NP [address] [place] [address] PCP - General Internal Medicine 10/05/24 Maureen Pantoja, RN Txp Post Coordinator Transplant Hepatology 10/28/24 documented as of this encounter
--- OUTSIDE RECORDS SUMMARY | 2025-02-03 09:38 | XMS_ITS | Encounter Summary ---
Author Organization [employer] ([place], [place], [place], [place]) Address [address] [place] [address] Care Team Providers Care Chief Supply Chain Officer Name Role Phone Unavailable Primary Care Provider Unavailabl e Encounter Details Date Type Department Care Team (Late st Contact Info) Description 06/03/2018 Transcribed Document [facility] Family Medicine [address] [place] [address] ProviderEbenezer MD [address] [place], [place] [id number] Social History Tobacco Use Types Packs/Day Years [...] - Historical ProviderMD - 06/03/2018 2:24 PM COVER INSPECTOR Electronically signed by Gabriela [facility] Conversion Consignee Cerner at 08/29/2022 6:41 PM CDT documented in this encounter Plan of Treatment Not on file documented as of this encounter Visit Diagnoses Not on filedocumented in this encounter
--- OUTSIDE RECORDS SUMMARY | 2025-02-03 09:38 | XMS_ITS | Encounter Summary ---
Author Organization [facility] Address [address] [place] [address] Care Team Providers Care Quick Print Operator Name Role Phone Enedina Mcguire NP Primary Care Provider + [phone] Maureen Pantoja RN Unavailable Unavail able Source [...] release of HIV test results or diagnoses. [id number] Health Encounter Details Date Type Department Care Team (Late st Contact Info) Description 01/14/2025 Telephone [facility] Liver Transplant at [address] [address] Marlene Ro MA Social History [...] Recorded In the past 12 months has [employer], gas, oil, or water [employer] threatened to shut off services in your [...] Progress Notes * Marlene Ro MA - 01/14/2025 12:49 PM EDT Patients tacrolimus was 20.7 on 01/09. Patient confirmed that he had taken his tacrolimus before he got labs that day. I have sent to [facility] for further review. He was at the lab today but results are still pending. documented in this encounter Plan [...] documented as of this encounter Care Teams Quick Print Operator Relationship Specialty Start Date End Date Enedina Mcguire NP [address] [place] [address] PCP - General Internal Medicine 10/05/24 Maureen Pantoja, ЮЛИЯ Txp Post Coordinator Transplant Hepatology 10/28/24 documented as of this encounter
--- OUTSIDE RECORDS SUMMARY | 2025-02-03 09:38 | XMS_ITS | Encounter Summary ---
Author Organization [facility] Address [address] [place] [address] Care Team Providers Care Seam Rubbing Machine Operator Name Role Phone Enedina Mcguire NP Primary Care Provider + [phone] Maureen Pantoja RN Unavailable Unavail able Source [...] release of HIV test results or diagnoses. [id number] Reason for Visit * Reason Comments Critical Lab Results Encounter Details Date Type Department Care Team (Late st Contact Info) Description 01/19/2025 Telephone [facility] Liver Transplant at [address] [place] [phone] Gladis Chisholm MA Critical Lab Results [...] In the past 12 months has e [employer], gas, oil, or water [employer] threatened to shut off services in your [...] as of this encounter Progress Notes * Josr Weber RN - 01/20/2025 4:18 PM EDT Reviewed previous call reporting pt has +UC, reviewed with Dr. Juarez: Plan of Care: UA neg for WBC, Nitrite , leuk esterase. No treatment . Ask patient if he is having any UTI symptoms. Would repeat Clean catch urine culture This RN called and informed patient of changes to plan of care. No other questions or concerns at this time. Pt denies any s/s of UTI, educated on proper urine sample technique, pt verbalized understanding, no further questions, reports he will repeat labs next week * Maureen Pantoja RN - 01/19/2025 10:00 AM EDT Images from the original note were not included. Urine culture collected 01/14/25. Complete results uploaded to media tab. Culture results with susceptibilities: Will forward results to Kidney Txp Providers and Kidney Txp RN Coordinator for follow-up. * Gladis Chisholm MA - 01/19/2025 9:17 AM EDT [facility] lab called to report: Urine culture results; [...] [place] [address] [place], [place] [phone] PCP - General Internal Medicine 10/05/24 Maureen Pantoja, RN Txp Post Coordinator Transplant Hepatology 10/28/24 documented as of this encounter
--- OUTSIDE RECORDS SUMMARY | 2025-02-03 09:38 | XMS_ITS | Encounter Summary ---
Author Organization [facility] ([place], [place], [place], [place]) Address [address] [place] [address] Care Team Providers Care Packaging Design Engineer Name Role Phone Unavailable Primary Care Provider Carmen e Encounter Details Date Type Department Care Team (Late st Contact Info) Description 06/03/2018 Transcribed Document [facility] Family Medicine [address] [place] [address] ProviderEbenezer MD [address] [place] [address] Social History Tobacco Use Types [...] - Historical ProviderMD - 06/03/2018 3:04 PM SACK REPAIRER [address] [place] [address] Patient Information Name: JULIEN ZELAYA [...] [address] [place] [address] [employer] (1) Within 2 to 3 days Patient [...] off of the skin. General Instructions??? Take dcka-khz-psmplbj and prescription medicines only as told by [...] 04/30/2006 Document Revised: 09/29/2016 Document Reviewed: 04/26/2015 [employer] Interactive Patient Education ? 2017 [employer] Allergies: No Known Medication Allergies Medication [...] verify that JULIEN ZELAYA was seen at [facility] Emergency Department on ,06/03/2018 15:04:17. This [...] Assistance with quitting is available by contacting 6-354-HTLK-NOW. This is a free resource providing counseling, [...] Electronic Communications Privacy Act 18 U.S.C. ???Sections 8871-0317,?? and contain information intended for the specified [...] sure to sign up for the [facility] patient portal, which gives you 04/12 access to your medical information ??? including these discharge instructions ??? using your computer, smartphone, or tablet. Just go to [employer] to get started. Questions? Call . Acknowledgment [...] Electronically signed by Luis Eduardo Ochoa Conversion Pediatric Acute Care Unit Nurse Celia at 08/29/2022 6:45 PM CDT documented in this encounter Plan of Treatment Not on file documented as of this encounter Visit Diagnoses Not on filedocumented in this encounter
--- OUTSIDE RECORDS SUMMARY | 2025-02-03 09:38 | XMS_ITS | Encounter Summary ---
Author Organization [facility] Address [address] [place] [address] Care Team Providers Care Quality Assurance Consultant Name Role Phone Enedina Mcguire NP Primary Care Provider + [phone] Alicia Rankin RN Unavailable Unavail able Source [...] release of HIV test results or diagnoses. [id number] Reason for Visit * Reason Comments Results Medication Dose Change Encounter Details Date Type Department Care Team (Late st Contact Info) Description 12/22/2024 Telephone [facility] Liver Transplant at [address] [address] Alicia Rankin, ЮЛИЯ Results; Medication [...] Recorded In the past 12 months has [employer], gas, oil, or water company threatened to [...] for therapeutic drug monitoring S/P liver transplant ([facility]) Hypomagnesemia Disorders of magnesium metabolism Kidney transplant [...] of this encounter Care Teams Quality Assurance Consultant Relationship Specialty Start Date End Date Enedina Mcguire NP [address] [place] [address] PCP - General Internal Medicine 10/05/24 Alicia Rankin, RN Txp Post Coordinator Transplant Hepatology 10/28/24 documented as of this encounter
--- OUTSIDE RECORDS SUMMARY | 2025-02-03 09:38 | XMS_ITS | Encounter Summary ---
Author Organization [facility] Address [address] [place] [address] Care Team Providers Care Coremaking Machine Setter Name Role Phone Enedina Mcguire NP Primary Care Provider [phone] Maureen Pantoja RN Unavailable Unavail able Source [...] release of HIV test results or diagnoses. [id number] Reason for Visit * Reason Comments Medication Refill Encounter Details Date Type Department Care Team (Late st Contact Info) Description 12/21/2024 Refill Liver Transplant at [address] [address] Lydia Sanchez MD [address] [place] [address] Liver/[place] [address] Encounter for therapeutic drug monitoring; S/P liver transplant ([facility]); Hypomagnesemia; Kidney transplant recipient; Hypertension, unspecified [...] for therapeutic drug monitoring S/P liver transplant ([facility]) Hypomagnesemia Disorders of magnesium metabolism Kidney [...] documented as of this encounter Care Teams Coremaking Machine Setter Relationship Specialty Start Date End Date Enedina Mcguire NP [address] [place] [address] PCP - General Internal Medicine 10/05/24 Maureen Pantoja, RN Txp Post Coordinator Transplant Hepatology 10/28/24 documented as of this encounter
--- OUTSIDE RECORDS SUMMARY | 2025-02-03 09:38 | XMS_ITS | Encounter Summary ---
Author Organization [employer] ([place], [place], [place], [place]) Address [address] [place] [address] Care Team Providers Care Corrugated Sheet Material Sheeter Name Role Phone Unavailable Primary Care Provider Unavailabl e Encounter Details Date Type Department Care Team (Late st Contact Info) Description 06/03/2018 Transcribed Document [facility] Family Medicine [address] [place] [address] ProviderEbneezer MD [address] [place] [address] Social History Tobacco Use Types [...] - Historical ProviderMD - 06/03/2018 12:08 PM [facility] ED Triage Entered On: 06/03/2018 12:17 EST Performed On: 06/03/2018 12:12 EST by KANU VELEZ RN ED Triage Across the Room Triage Date/Time : 06/03/2018 12:12 EST Chief Complaint : lacerations to rt index and left middle finger s/p picking up a 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 lacerations noted with bleeding controlled KANU VELEZ RN - 06/03/2018 12:12 EST DCP GENERIC CODE Tracking Acuity : 3 - Urgent Tracking Group : [facility] KANU VELEZ RN [...] 12:17:41 EST) Problems(Active) HTN (hypertension) (SNOMED CT :2512997264 ) Name of Problem: HTN (hypertension) ; Recorder: KANU VELEZ RN; Confirmation: Confirmed ; Classification: Medical ; Code: [id number] ; Contributor System: [employer] ; Last Updated: 06/03/2018 12:14 EST ; Life Cycle Date: 06/03/2018 ; Life Cycle Status: Active ; Vocabulary: SNOMED CT Diagnoses(Active) Finger laceration Date: 06/03/2018 ; Diagnosis Type: Reason For Visit ; Confirmation: Complaint of ; Clinical Dx: Finger laceration ; Classification: Medical ; Clinical Service: Emergency medicine ; Code: PNED ; Probability: 0 ; Diagnosis Code: [id number] ED Height and Weight Height Source : Stated Height Entry Format : [place] Height, Feet : 6 ft(Converted to: 183 cm, 72 Inch) Height, Inches : 4 Inch(Converted to: 0 ft 4 Inch, 10.16 cm) Clinical Height : 193.04 cm Weight Source, ED : Standing scale Weight Entry Format : [place] Weight, Pounds : 265 lb Clinical Dosing Weight : 120.45 kg Body Surface Area (BSA) : 2.5 m2 Body Mass Index : 32.3 kg/m2 (HI) [place] Body Weight (IBW) : 85.74 kg KANU [...]
--- OUTSIDE RECORDS SUMMARY | 2025-02-03 09:38 | XMS_ITS | Encounter Summary ---
Author Organization [facility] Address [address] [place] [address] Care Team Providers Care Journal Clerk Name Role Phone Enedina Mcguire NP Primary Care Provider + [phone] Maureen Pantoja RN Unavailable Unavail able Source [...] release of HIV test results or diagnoses. [id number] Health Encounter Details Date Type Department Care Team (Late st Contact Info) Description 12/31/2024 Chart Note [facility] Liver Transplant at [address] [place] [phone] Marlene Ro MA 12/31 Labs entered from [facility] Social History Tobacco Use [...] Recorded In the past 12 months has [employer], gas, oil, or water [employer] threatened to shut off services in your [...] 11:59 AM EDT 12/31 Labs entered from [facility] documented in this encounter [...] Quant PCR PL Negative Plasma Result [facility] LAB BLOOD ORDERABLES Denisse l Result * (ABNORMAL) Magnesium (12/31/2024 9:41 AM EDT) Magnesium 1.2(A) 1.6 - 2.4 mg/dL Plasma Narrative Resulting Agency Comment [facility] Result [facility] LAB BLOOD ORDERABLES Denisse l Result * Hepatic Function Panel (12/31/2024 9:41 AM EDT) Bilirubin, Direct 0.1 Bilirubin, Indirect 0.4 Alkaline Phosphatase 66 ALT 14 AST 22 Total Bilirubin 0.5 Total Protein 6.4 Plasma Narrative Resulting Agency Comment [facility] Result [facility] LAB BLOOD ORDERABLES Denisse l Result * (ABNORMAL) Renal Function Panel w/o EGFR (12/31/2024 9:41 AM EDT) Glucose 91 BUN 18 CO2 26(A) 13 - 22 mmol/L Creatinine 0.90 Potassium 4.2 Sodium 141 Chloride 105 Phosphorus 4.8 2.5 - 4.9 mg/dL Calcium 9.5 EGFR 113 mg/dL Albumin 4.5 3.5 - 5.0 g/dL Blood Narrative Resulting Agency Comment [facility] Result [facility] LAB BLOOD ORDERABLES Denisse l Result * Creatinine, urine, random (12/31/2024 9:41 AM EDT) Creatinine, Urine 57 Urine Narrative Resulting Agency Comment [facility] Provider Result Type Result [facility] URINE ORDERABLES Final Re sult * Urinalysis w/Rfl to Microscopic (12/31/2024 9:41 AM EDT) Glucose, UA Negative Negative Ketones, UA Negative Negative Blood, UA Negative Negative Bilirubin, UA Negative Negative Urobilinogen, UA Normal Normal Protein, UA Negative Negative pH, UA 5.5 4.5 - 8.0 Specific [place], UA 1.025 1.005 - 1.030 Clarity, UA Clear Clear Color, UA Yellow Light Yellow, Yellow Urine Narrative Resulting Agency Comment [facility] Provider URINE ORDERABLES Final Re [...] 3.0 10^3/mL Blood Narrative Resulting Agency Comment [facility] Result [facility] Provider LAB BLOOD ORDERABLES Denisse l Result * Urine Protein, Tot, Random (w/o Creat) (12/31/2024 9:41 AM EDT) Total Protein, Ur 17.0 Urine Narrative Resulting Agency Comment [facility] Result [facility] Historical Provider URINE ORDERABLES Final Re sult documented in this encounter Visit Diagnoses Not on filedocumented in this encounter Additional Health Concerns Infection Onset Date Last Indicated Resolved 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
--- OUTSIDE RECORDS SUMMARY | 2025-02-03 09:38 | XMS_ITS | Encounter Summary ---
Author Organization [employer] ([place], [place], [place], [place]) Address [address] [place] [address] Care Team Providers Care Nocturnist Name Role Phone Unavailable Primary Care Provider Unavailabl e Encounter Details Date Type Department Care Team (Late st Contact Info) Description 06/03/2018 Transcribed Document [facility] [address] [place] [address] ProviderEbenezer MD [address] [place], [place] [id number] Social History Tobacco Use Types Packs/Day Years [...] - Historical ProviderMD - 06/03/2018 3:03 PM [facility] ED Discharge Entered On: 06/03/2018 15:03 EST Performed On: 06/03/2018 15:03 EST by Lizeth Almeida, instructional consultant Process Patient Disposition : Discharge Personal Belongings [...] 06/03/2018 15:03 EST Electronically signed by Gabriela [facility] Conversion General Science Teacher Celia at 08/29/2022 6:35 PM CDT documented in this encounter Plan of Treatment Not on file documented as of this encounter Visit Diagnoses Not on filedocumented in this encounter
[2025-02-03 09:43] LABS: Microscopic, Urine URINE MICROSCOPIC (MICROSCOPIC)
[2025-02-03 10:08] LABS: Hematocrit 34.9 % (42.0-52.0); Hemoglobin 12.2 g/dL (14.1-18.0); Immature Granulocytes % 1.4 %; Mean Corpuscular HGB Conc 35.0 g/dL (31.8-35.4); Mean Corpuscular Hemoglobin 32.8 pg (27.0-31.2); Mean Corpuscular Volume 93.8 fl (80-94); Nucleated Red Blood Cells % 0 %; Platelet Count 152 K/mm3 (142-424); Red Blood Count 3.72 M/mm3 (4.60-6.20); Red Cell Distribution Width-SD 47.3 fL; White Blood Count 2.8 K/mm3 (4.8-10.8)
[2025-02-03 10:46] LABS: Albumin Level 4.6 g/dl (3.5-5.0)
[2025-02-03 10:48] LABS: Bilirubin,Unconjugated 0.4 mg/dL (0.0-1.1)
[2025-02-03 10:49] LABS: Alanine Aminotransferase 15 U/L (12-78); Alkaline Phosphatase 61 U/L (38-126); Aspartate Amino Transferase 18 U/L (17-59); Bilirubin,Direct 0.1 mg/dl (0.0-0.4); Bilirubin,Indirect 0.4 mg/dL (0.0-0.9); Bilirubin,Total 0.5 mg/dl (0.2-1.3); Total Protein,Serum 6.4 g/dl (6.3-8.2)
[2025-02-03 11:07] LABS: Adenovirus F 40/41, stool Not Detected (NotDetected); Cyclospora Cayetanesis Not Detected (NotDetected); Plesimonas Shigalloides, PCR Not Detected (NotDetected); Salmonella, PCR Not Detected (NotDetected); Shiga-like toxin E coli Not Detected (NotDetected); Shigella Enterovasive E coli Not Detected (NotDetected); Vibrio, PCR Not Detected (NotDetected); Yersinia Entercolitica, PCR Not Detected (NotDetected)
[2025-02-03 11:23] LABS: Bilirubin,Urine Negative (Negative); Color,Urine YELLOW (Yellow); Glucose,Urine (UA) Negative (Negative); Ketones,Urine Negative (Negative); Leukocyte Esterase,Urine Negative (Negative); PH,Urine 6.0 (5.0-8.5); Protein,Urine Negative (Negative); Specific Gravity, Urine 1.020 (1.005-1.030); Urobilinogen,Urine 0.2 EU/dl (0.2)
[2025-02-03 11:51] LABS: Albumin Level 4.5 g/dl (3.5-5.0); Chloride 103 mmol/L (98-107); Potassium 4.1 mmoL/L (3.5-5.1); Sodium 140 mmol/L (136-145)
[2025-02-03 11:54] LABS: Anion Gap 13.1 mEq/L (5-15); Blood Urea Nitrogen 17 mg/dl (9-20); Calcium 9.4 mg/dl (8.4-10.2); Carbon Dioxide 28 mmol/L (22.0-30.0); Creatinine,Serum 0.90 mg/dl (0.66-1.25); Estimated Glomerular Filt Rate 93 ml/min (>60); GFR (African American) 113 ML/MIN (>60); Glucose 114 mg/dl (74-100); Magnesium 1.3 mg/dl (1.6-2.3); Phosphorous 5.5 mg/dl (2.5-4.5)
[2025-02-03 12:07] LABS: Squamous Epithelial Cell,Urine Occasional #/hpf (0-5); WBC,Urine Occasional #/hpf (0-3)
[2025-02-03 15:24] LABS: Clostridium Difficile A/B, PCR Detected (NotDetected)
[2025-02-04 15:17] LABS: BKV DNA, Quant PCR, Plasma Negative (Negative)
[2025-02-06 20:11] LABS: Tacrolimus (FK506), Blood 7.0 ng/mL (5.0-20.0)
[2025-02-07 15:13] LABS: CMV PCR Negative (Negative)
== END 2025-02-03 23:59 | disposition home or self-care (01) ==
LOC: LAB 09:32
PROVIDERS: PCP Nurse Practitioner Family; Visit Provider Surgery
DX: K74.60 Unspecified cirrhosis of liver (principal); D84.9 Immunodeficiency, unspecified; R18.8 Other ascites; R19.7 Diarrhea, unspecified; F10.90 Alcohol use, unspecified, uncomplicated; Z79.60 Long term (current) use of unspecified immunomodulators and immunosuppressants; Z94.4 Liver transplant status; Z94.0 Kidney transplant status
CPT/HCPCS: 36415; 80069; 80076; 80197; 80321; 81001; 82570; 83735; 84156; 85025; 87081; 87086; 87088; 87186; 87496; 87506; 87799

== ENCOUNTER 2025-02-10 09:20 | Outpatient (CLI) | payer OTHER, SELFPAY ==
--- OUTSIDE RECORDS SUMMARY | 2024-09-02 14:40 | XMS_ITS | Encounter Summary ---
Author Organization [facility] Address [address] [place] [address] Care Team Providers Care Front End Mechanic Name Role Phone Enedina Mcguire NP Primary Care Provider + [phone] Maureen Pantoja RN Unavailable Unavail able Source [...] release of HIV test results or diagnoses. [id number] Reason for Visit * Reason Comments Follow-up Bloating in PT stoma ch * Hospital Discharge Follow-Up (Routine) - Closed Specialty Diagnoses / Procedures Referred By Shane t Referred To Contact Hepatology Feliciano Freeman MD [address] [place] [address] Phone: tel: fax: Referral ID Status Reason Start Date Expiration Date Visits Re quested Visits Authorized [id number] Closed 07/29/2024 01/25/2025 1 1 Encounter Details Date Type Department Care Team (Latest Contact Info) Description 09/02/2024 2:40 PM EDT Office Visit [facility] G[facility]ology at [facility] [address] [facility] [address] [place] [phone] Gerri Peterson MD [address] [place] [address] Cirrhosis of liver with ascites, [...] the past 12 months has th e [employer], [employer], oil, or water [employer] threatened to shut off services in your [...] any time in the past 12 m [facility], were you homeless or living in a snf (including now)? No 01/28/2025 Yearly Questionnaire Answer [...] Peterson MD - 09/02/2024 2:[address] [facility] HEPATOLOGY CLINIC NOTE Chief complaint: Post [...] worsening ascites and had therapeutic paracentesis at [facility] with about a week prior to [...] will prefer to have LVP done at [facility]. Will print out paper order for [...] Chris Orosco MD, MPH Transplant hepatology Pager: [phone] documented in this encounter Plan of Treatment Not on file documented as of this encounter Results * (ABNORMAL) CBC (09/02/2024 5:00 PM EDT) WBC 10.4 3.8 - 10.8 10E3/uL 09/02/2024 7:42 PM EDT [facility] RBC 3.13(L) 4.20 - 5.80 10E6/uL 09/02/2024 7:42 PM EDT [facility] Hemoglobin 11.1(L) 13.2 - 17.1 g/dL 09/02/2024 7:42 PM EDT [facility] Hematocrit 30.7(L) 38.5 - 50.0 % 09/02/2024 7:42 PM EDT [facility] MCV 97.9 80.0 - 100.0 fL 09/02/2024 7:42 PM EDT [facility] MCH 35.3(H) 27.0 - 33.0 pg 09/02/2024 7:42 PM EDT [facility] MCHC 36.1(H) 32.0 - 36.0 g/dL 09/02/2024 7:42 PM EDT [facility] RDW 22.7(H) 11.0 - 15.0 % 09/02/2024 7:42 PM EDT [facility] Platelets 73(L) 140 - 400 10E3/uL 09/02/2024 7:42 PM EDT [facility] MPV 9.4 7.5 - 11.5 fL 09/02/2024 7:42 PM EDT [facility] Whole Blood 09/02/2024 5:00 PM EDT 09/02/2024 7:34 PM EDT us Gerri Peterson MD LAB BLOOD ORDERABLES Final Resu lt [facility] [address] documented in this encounter Visit Diagnoses [...] documented as of this encounter Care Teams Front End Mechanic Relationship Specialty Start Date End Date Enedina Mcguire NP [address] [place] [address] PCP - General Internal Medicine 10/05/24 Maureen Pantoja, RN Txp Post Coordinator Transplant Hepatology 10/28/24 documented as of this encounter
--- OUTSIDE RECORDS SUMMARY | 2024-12-09 09:50 | XMS_ITS | Encounter Summary ---
Author Organization [facility] Address [address] [place] [address] Care Team Providers Care Technical Account Manager Name Role Phone Enedina Mcguire NP Primary Care Provider + [phone] Maureen Pantoja RN Unavailable Unavail able Source [...] release of HIV test results or diagnoses. [id number] Health Encounter Details Date Type Department Care Team (Late st Contact Info) Description 12/09/2024 9:50 AM EDT Office Visit [facility] Liver Transplant at [place] [id number] [place] [address] Leisa Juarez MD [address] [place] [address] 2nd [place] [address] Kidney transplant recipient (Primary Dx); Immunosuppressive management encounter following liver transplant ([facility]); Hypomagnesemia; S/P liver transplant ([facility]); Hypertension, unspecified type; Hyperparathyroidism ([facility]) Social History Tobacco Use Types Packs/Day [...] liver (CMS-HCC) Esophageal varices (CMS-HCC) Hepatorenal syndrome ([facility]) Hypertension Other hyperlipidemia 07/26/2024 Renal cell carcinoma (CMS-HCC) Thrombocytopenia ([facility]) Thyroid disease Surgical History: Past Surgical [...] Stent , Removal of Perihepatic packing; Surgeon: Harevy Domínguez III, MD; Location: OR; Service: Transplant; [...] Low Risk (07/09/2024) Received from [facility] Overall Financial Resource Strain (CARDIA) [...] No Physical Activity: Unknown (07/14/2024) Received from [facility] Exercise Vital Sign Days of Exercise per Week: Patient unable to answer Minutes of Exercise per Session: Not on file Stress: Patient Unable To Answer (07/14/2024) Received from [facility] [place] of Occupational Health - Occupational Stress Questionnaire Feeling of Stress : Patient unable to answer Social Connections: Patient Unable To Answer (07/14/2024) Received from [facility] Social Connection and Isolation Panel [NHANES] [...] times a day. naloxone (NARCAN) 4 mg/actuation [place] Apply 1 spray in one nostril [...] Results Component Value Date PTH 36.0 10/25/2024 [id number] 7.1 (L) 10/08/2024 Hemoglobin A1C: Lab Results [...] Discussed with Dr. Juarez. Lauren Santos, SAMSON, DISPOSAL MAN, PSYCHIATRIC TECHNICIAN- Transplant Nephrology [phone] Preferred contact: secure chat The HPI, ROS, [...] Primary Immunosuppressive management encounter following liver transplant ([facility]) Hypomagnesemia Disorders of magnesium metabolism S/P liver transplant ([facility]) Hypertension, unspecified type Hyperparathyroidism ([facility]) Hyperparathyroidism, unspecified documented in this encounter Additional Health Concerns Infection Onset Date Last Indicated Resolved Time 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
--- OUTSIDE RECORDS SUMMARY | 2024-12-09 11:45 | XMS_ITS | Encounter Summary ---
Author Organization [facility] Address [address] [place] [address] Care Team Providers Care Agency Owner Name Role Phone Enedina Mcguire NP Primary Care Provider + [phone] Maureen Pantoja RN Unavailable Unavail able Source [...] release of HIV test results or diagnoses. [id number] Health Encounter Details Date Type Department Care Team (Late st Contact Info) Description 12/09/2024 11:45 AM EDT Office Visit [facility] Psychiatry Transplant at [place] [address] [phone] Rebekah Linares, [address] [place] [address] Alcohol use disorder (Primary Dx) [...] Recorded In the past 12 months has [employer], gas, oil, or water [employer] threatened to shut off services in your [...] documented as of this encounter Care Teams Agency Owner Relationship Specialty Start Date End Date Enedina Mcguire NP [address] [place] [address] PCP - General Internal Medicine 10/05/24 Maureen Pantoja, ЮЛИЯ Txp Post Coordinator Transplant Hepatology 10/28/24 documented as of this encounter
--- OUTSIDE RECORDS SUMMARY | 2024-12-18 14:00 | XMS_ITS | Encounter Summary ---
Author Organization [facility] Address [address] [place] [address] Care Team Providers Care Fan Runner Name Role Phone Enedina Mcguire NP Primary Care Provider [phone] Maureen Pantoja RN Unavailable Unavail able Source [...] release of HIV test results or diagnoses. [id number] Reason for Visit * Auth/Cert (Routine) Specialty Diagnoses / Procedures Referred By Shane hernadez Referred To Contact Psychiatry [facility] Psychiatry Transplant at [address] [address] Phone: tel: fax: Referral ID Status Reason Start Date Expiration Date Visits Re quested Visits Authorized [id number] 1 1 Encounter Details Date Type Department Care Team (Late st Contact Info) Description 12/18/2024 2:00 PM EDT Office Visit [facility] Psychiatry Transplant at [address] [place] [phone] Craig Warren PsyD [address] [facility] [address] [place] [address] Alcohol use disorder (Primary Dx); [...] the past 12 months has th e [employer], [employer], oil, or water [employer] threatened to shut off services in your [...] AUD Plan: No follow up with this radio news writer indicated at this time Patient to [...] documented as of this encounter Care Teams Fan Runner Relationship Specialty Start Date End Date Enedina Mcguire NP [address] [place] [address] PCP - General Internal Medicine 10/05/24 Maureen Pantoja, ЮЛИЯ Txp Post Coordinator Transplant Hepatology 10/28/24 documented as of this encounter
--- OUTSIDE RECORDS SUMMARY | 2025-01-01 14:15 | XMS_ITS | Encounter Summary ---
Author Organization [facility] Address [address] [place] [address] Care Team Providers Care Insolvency Consultant Name Role Phone Enedina Mcguire APRN Primary Care Provider + Reason for Visit * Reason Comments Follow-up Neck Pain Back Pain Encounter Details Date Type Department Care Team (Late st Contact Info) Description 01/01/2025 2:15 PM EDT Office Visit [facility]GEMENT [address] [phone] Vazquez Christie PA-C [address] [facility] [address] [place] [address] Cervical radiculopathy (Primary Dx); Long-term use of high-risk medication; Cervical spondylosis without myelopathy; Cervical pain (neck); Therapeutic drug monitoring; Chronic pain syndrome Social History Tobacco Use Types Packs/Day Years Used Date Smoking Tobacco: Former Cigarettes 4 20 Passive Smoke Exposure: Past Smokeless Tobacco: Current Comments:MARIJUANA USE ABOUT 2X PER WEEK - reports no use 08-05-2024 Alcohol Use Standard Drinks/Week Comments Not Currently 0 (1 standard drink = 0.6 oz pure alcohol) 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 [facility] Utilities Answer Date Recorded In the past 12 months has [employer], gas, oil, or water [employer] threatened to shut off services in your [...] Brief Depression Severity Measure Score 0 10/02/2022 [facility] of Occupat ional Health - Occupational Stress [...] GED or equivalent No 07/09/2024 Preferred Language Kenyan 07/09/2024 PHQ-2 Answer Date Recorded Patient Health Questionnaire-9 Score 6 01/01/2025 Sex and Gender Information Value Date Recorded [...] - Inhaled Oxygen Concentration - - Weight 103 kg (226 lb) 01/01/2025 2:17 PM EDT Height 193 cm (6' 3.98 ) 01/01/2025 2:17 PM EDT Body Mass Index 27.52 01/01/2025 2:17 PM EDT documented in this encounter Functional Status documented as of this encounter Progress Notes * Vazquez Christie PA-C - 01/01/2025 2:15 PM EDT Referring Physician: No referring provider defined for this encounter. Primary Physician: Enedina Mcguire APRN CHIEF COMPLAINT or REASON FOR VISIT: Follow-up, Neck Pain, and Back Pain Initial history of present illness on 08/06/2023: [...] to clinic today for medication management. He was prescribed tramadol 50 mg once daily as needed, 30 pills, #0 refills at his last office visit. We are in the process of tapering his tramadol due to positive THC on UDS. 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 Patient does report he has not been taking tramadol as hehas been started on naltrexone he was told he could not take tramadol with naltrexone. Since discontinuing tramadol he has noticed an increase in his neck pain. Primarily has neck pain with radiationto the bilateral occiput. Has a previous C3-6 ACDF. Denies any particular radiation into the upper extremities. He is interested in interventions to help alleviate his symptoms. Interventions: 08/23/2023: LEENA with 50% relief for 2 weeks, 30-40% relief for multiple months Objective Pain Scoring: BRIEF PAIN INVENTORY: Total score: Pain Score 01/01/25 1417 PainSc: 7 PainLoc: Neck Comment: Back PHQ-2: PHQ-9: Opioid Risk Tool: Review of [...] Surgeon: Presley Montes De Oca MD; Location: [facility]; Service: Gastroenterology; Laterality: N/A; ENDOSCOPY N/A 07/29/2022 Procedure: ESOPHAGOGASTRODUODENOSCOPY; Surgeon: Presley Montes De Oca MD; Location: [facility]; Service: Gastroenterology; Laterality: N/A; WITH APC [...] 30 days sober on 08-05-2024 Drug use: Yes Types: Marijuana Sexual activity: Yes Partners: Female Medications: Current Outpatient Medications: FLUoxetine (PROzac) 20 MG capsule, Take 1 capsule by mouth Daily., Disp: , Rfl: levothyroxine (SYNTHROID, LEVOTHROID) 75 MCG tablet, Take 1 tablet by mouth Daily., Disp: 30 tablet, Rfl: 0 loratadine (CLARITIN) 10 MG tablet, Take 1 tablet by mouth., Disp: , Rfl: methocarbamol (ROBAXIN) 500 MG tablet, Take 1 tablet by mouth 2 (Two) Times a Day., Disp: , Rfl: midodrine (PROAMATINE) 10 MG tablet, Take 1 tablet by mouth 3 (Three) Times a Day., Disp: , Rfl: mycophenolate (CELLCEPT) 250 MG capsule, Take 2 capsules by mouth 2 (Two) Times a Day., Disp: , Rfl: predniSONE (DELTASONE) 5 MG tablet, Take 1.5 tablets by mouth Daily., Disp: , Rfl: tacrolimus (PROGRAF) 1 MG capsule, Take by mouth. Take 5 capsules (5 mg total) by mouth every morning AND 6 capsules (6 mg total) at bedtime. Use as directed. Indications: Prevention of Kidney Transplant Rejection, Prevention of Liver Transplant Rejection., Disp: , Rfl: valGANciclovir (VALCYTE) 450 MG tablet, Take 1 tablet by mouth Daily., Disp: , Rfl: Bempedoic Acid-Ezetimibe (Nexlizet) 180-10 MG tablet, Take 1 tablet by mouth Daily. (Patient not taking: Reported on 01/01/2025), Disp: , Rfl: ciprofloxacin (CIPRO) 500 MG tablet, Take 1 tablet by mouth Daily. (Patient not taking: Reported on01/01/2025), Disp: , Rfl: folic acid (FOLVITE) 1 MG tablet, Take 1 tablet by mouth Daily. (Patient not taking: Reported on 01/01/2025), Disp: , Rfl: HYDROmorphone (DILAUDID) 2 MG tablet, Take 1 tablet by mouth Every 6 (Six) Hours. (Patient not taking: Reported on 01/01/2025), Disp: , Rfl: lactulose (CHRONULAC) 10 GM/15ML solution solution (encephalopathy), Take 30 mL by mouth 3 (Three) Times a Day. (Patient not taking: Reported on 01/01/2025), Disp: , Rfl: lactulose (CHRONULAC) 10 GM/15ML solution, Take 30 mL by mouth 2 (Two) Times a Day. (Patient not taking: Reported on 01/01/2025), Disp: , Rfl: lidocaine (LIDODERM) 5 %, Place 1 patch on the skin as directed by provider Daily. (Patient not taking: Reported on 01/01/2025), Disp: , Rfl: multivitamin with minerals tablet tablet, Take 1 tablet by mouth Daily. (Patient not taking: Reported on 01/01/2025), Disp: , Rfl: naloxone (NARCAN) 4 MG/0.1ML nasal spray, Administer 1 spray into the nostril(s) as directed by provider. (Patient not taking: Reported on 01/01/2025), Disp: , Rfl: naltrexone (DEPADE) 50 MG tablet, Take 1 tablet by mouth Daily., Disp: , Rfl: pantoprazole (PROTONIX) 40 MG EC tablet, Take 1 tablet by mouth Daily. (Patient not taking: Reported on 01/01/2025), Disp: 30 tablet, Rfl: 0 potassium chloride ER (K-TAB) 20 MEQ tablet controlled-release ER tablet, Take 2 tablets by mouth Daily. (Patient not taking: Reported on 01/01/2025), Disp: , Rfl: riFAXIMin (Xifaxan) 550 MG tablet, Take 1 tablet by mouth Every 12 (Twelve) Hours. (Patient not taking: Reported on 01/01/2025), Disp: 180 tablet, Rfl: 0 thiamine (VITAMIN B1) 100 MG tablet, Take 1 tablet by mouth Daily. (Patient not taking: Reported on01/01/2025), Disp: , Rfl: topiramate (TOPAMAX) 25 MG tablet, Take by mouth., Disp: , Rfl: torsemide (DEMADEX) 20 MG tablet, , Disp: , Rfl: ursodiol (ACTIGALL) 300 MG capsule, Take 1 capsule by mouth. (Patient not taking: Reported on 01/01/2025), Disp: , Rfl: zinc sulfate (ZINCATE) 220 (50 Zn) MG capsule, Take 1 capsule by mouth Daily. (Patient not taking: Reported on 01/01/2025), Disp: , Rfl: Physical Exam: Vitals: 01/01/25 1417 Weight: 103 kg (226 lb) Height: 193 cm (75.98 ) PainSc: 7 PainLoc: Neck Comment: Back General: Alert and oriented, No acute distress. [...] every 6 hours prescribed by transplant team. 01/01/2025: Discontinue tramadol. Symptoms consistent with adjacent level cervical spondylosis. May consider C MBB however he is still recovering from liver and kidney transplant. 1. Cervical radiculopathy 2. Long-term use of high-risk medication 3. Cervical spondylosis without myelopathy 4. Cervical pain (neck) 5. Therapeutic drug monitoring 6. Chronic pain syndrome PLAN: 1. Medication Recommendations: - Discontinue tramadol. Was last prescribed tramadol 50 mg once daily as needed, 30 pills, #0 refills at his last office visit. We were initially tapering this medication because of concurrent benzodiazepine prescription. He is no longer prescribed Xanax however due to positive THC on UDS we are unable to provide refills of tramadol 2. Physical Therapy: Continue HEP 3. Psychological: defer 4. Complementary and alternative (CAM) Therapies: 5. Labs/Diagnostic studies: UDS from 12/04/2024 reveals positive THC 6. Imagin. Interventions: Poor candidate for interventions given comorbidities and recent transplant status. - Could consider C2/3 and C6/7 MBB/RFA. He continues to recover from liver and kidney transplants which does not make him an ideal candidate for interventions at the moment. . 8. Referrals: None indicated 9. Records: [facility] reviewed; [facility] notes reviewed 10. Lifestyle goals: Follow-up 3 months [facility] Pain Management Vazquez Christie PA-C documented in this encounter Plan of Treatment Upcoming Encounters Date Type Department Care Team (Late st Contact Info) Description 04/02/2025 2:15 PM EST Office Visit [facility] PAIN MANAGEMENT [address] [phone] Vazquez Christie PA-C [address] [address] documented as of this encounter Visit Diagnoses Diagnosis Cervical radiculopathy- Primary Brachial neuritis or radiculitis nos Long-term use of high-risk medication Cervical spondylosis without myelopathy Cervical pain (neck) Cervicalgia Therapeutic drug monitoring Encounter for therapeutic drug monitoring Chronic pain syndrome documented in this encounter Additional Health Concerns Assessment Noted Time PHQ-2 Depression Total Score: 1 12/31/19 24 3:25 PM EDT documented as of this encounter Care Teams Insolvency Consultant Relationship Specialty Start Date End Date Endeina Mcguire APRN [address] [place] [address] PCP - General Nurse Practitioner 10/27/24 documented as of this encounter
--- OUTSIDE RECORDS SUMMARY | 2025-01-06 08:20 | XMS_ITS | Encounter Summary ---
Author Organization [facility] Address [address] [place] [address] Care Team Providers Care Architectural Model Maker Name Role Phone Enedina Mcguire NP Primary Care Provider + [phone] Maureen Pantoja RN Unavailable Unavail able Source [...] release of HIV test results or diagnoses. [id number] Reason for Visit * Reason Comments Liver Transplant Follow-up Encounter Details Date Type Department Care Team (Late st Contact Info) Description 01/06/2025 8:20 AM EDT Office Visit [facility] Liver Transplant at [address] [address] Cosmo Pacheco MD [address] [place] [address] Liver/[place] [address] Mahad Alonzo MD [facility] [place] [address] S/P liver transplant (CMS-HCC) (Primary [...] the past 12 months has th e [employer], gas, oil, or water company threatened to [...] B Donor HCV Serologies: Anti-HCV Negative, HCV KIAAN Negative Donor HBV Serologies: HBcAb Negative, HBV [...] Nutrition: patient continues close f/u w/ transplant block inspector. - Bone health: Vit D level to be drawn ~POD#90. - Labs: Labs (CBC w/ diff, renal panel, liver panel, tacro level) weekly. Lipid panel, HgbA1C and Vit D level to be drawn at POD#90, HgbA1C and Vit D level to be drawn at POD#180. - Follow up: RTC 1 month Mahad Alonzo MD Transplant Surgery [phone] [1] Allergies Allergen Reactions Adhesive Itching and [...] Confirmation, B Lab Routine S/P liver transplant ([facility]) Immunosuppression ([facility]) Kidney transplant recipient Alcohol use disorder weekly for 67 Occurrences starting 01/06/2025 until 07/21/2025 documented as of this encounter Visit Diagnoses Diagnosis S/P liver transplant ([facility])- Primary Immunosuppression ([facility]) Kidney transplant recipient Alcohol use disorder documented in this encounter Additional Health Concerns Infection Onset Date Last Indicated Resolved Time 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
--- OUTSIDE RECORDS SUMMARY | 2025-01-06 09:30 | XMS_ITS | Encounter Summary ---
Author Organization [facility] Address [facility] [place] [address] Care Team Providers Care Chief Technical Officer Name Role Phone Enedina Mcguire NP Primary Care Provider + [phone] Maureen Pantoja RN Unavailable Unavail able Source [...] release of HIV test results or diagnoses. [id number] Health Encounter Details Date Type Department Care Team (Late st Contact Info) Description 01/06/2025 9:30 AM EDT Office Visit [facility] Liver Transplant at [place] [address] [place] [address] Leisa Juarez MD [address] [place] [address] 2nd [place] [address] Kidney transplant recipient (Primary Dx); [...] liver (CMS-HCC) Esophageal varices (CMS-HCC) Hepatorenal syndrome ([facility]-HCC) Hypertension Other hyperlipidemia 07/26/2024 Renal [...] (07/14/2024) Received from [facility] [employer] [place] [facility] - Occupational Stress Questionnaire [...] Results Component Value Date PTH 36.0 10/25/2024 [id number] 7.1 (L) 10/08/2024 Hemoglobin A1C: Lab Results [...] Discussed with Dr. Juarez. Lauren Santos, SAMSON, HOUSEKEEPING CLEANER, HAND CANDY DIPPER- Transplant Nephrology [phone] Preferred contact: secure chat The HPI, ROS, [...] as of this encounter Care Teams Chief Technical Officer Relationship Specialty Start Date End Date Enedina Mcguire NP [address] [place] [address] PCP - General Internal Medicine 10/05/24 Maureen Pantoja, ЮЛИЯ Txp Post Coordinator Transplant Hepatology 10/28/24 documented as of this encounter
--- OUTSIDE RECORDS SUMMARY | 2025-01-27 18:28 | XMS_ITS | Encounter Summary ---
Author Organization [facility] Address [facility] [place] [address] Care Team Providers Care Manager Corporate Communications Name Role Phone Enedina Mcguire NP Primary Care Provider + [phone] Maureen Pantoja RN Unavailable Unavail able Source [...] release of HIV test results or diagnoses. [id number] Reason for Visit * Reason Comments Fever Immunocompromised 89F x1 day ago Diarrhea Headache * Auth/Cert (Routine) Specialty Diagnoses / Procedures Referred By Contac t Referred To Contact Transplant Diagnoses Diarrhea of presumed infectious origin [address] [place] [address] Phone: tel: Referral ID Status Reason Start Date Expiration Date Visits Re quested Visits Authorized [id number] 1 1 Encounter Details Date Type Department Care Team (Latest Contact Info) Description 01/27/2025 6:28 PM EDT - 01/30/2025 2:25 PM EDT Hospital Encounter [address] [place] [address] Sunny Wei MD [phone] [place] [address] Lydia Sanchez MD [address] [facility] Liver/[place] [address] Diarrhea of presumed infectious origin (Primary Dx); Immunosuppression ([facility]) Discharge Disposition: Home or Self Care WITHOUT [...] the past 12 months has th e [employer], gas, oil, or water [employer] threatened to shut off services in your [...] living in a mcfp (including now)? No 01/28/2025 Yearly Questionnaire Answer [...] Tian LSW - 01/30/2025 1:04 PM EDT [facility] Care Management Discharge Summary Patient name: Julien [...] at Discharge: Abdiaziz Gilbert- Family Contact Number: [phone] Plan reviewed with MD and other members of the health care team: Yes Care Plan Completed: Yes No further CM/SW needs. This plan has been reviewed with the multi-disciplinary team. Treatment Preferences Treatment Preferences: Distance Post-Discharge Goals Patient's Post-Discharge goals: Get stronger at home. Post Acute Care Provider Information: Community Services at Discharge Community Services at Home post discharge: Not Applicable RONALDO Garner [phone] * Feliciano Gomez CNP - 01/30/2025 8:39 AM EDT [facility] Inpatient Discharge Summary Patient: Julien Gilbert Age: 39 y.o. [facility]: [id number] Date of Admission: 01/27/2025 Date of Discharge: 01/30/2025 Attending Physician: Lydia Sanchez MD Primary Care Physician: Enedina Mcguire NP Diagnoses Present on Admission Past Medical History: Diagnosis Date Alcoholic cirrhosis of liver (CMS-HCC) Esophageal varices ([facility]) Hepatorenal syndrome ([facility]) Hypertension Other hyperlipidemia 07/26/2024 Renal cell carcinoma ([facility]) Thrombocytopenia ([facility]) Thyroid disease Discharge Diagnoses There are no [...] Your Medications These medications were sent to [facility] [address] [place] [address] Hours: Sunday - Sunday: 8:00AM - 6:00PM [...] Instructions: Call post-kidney transplant clinic with questions [phone] [facility] at [phone] and ask for the kidney stroke coordinator wildlife control agent if you experience any of the following: [...] through Care Everywhere. * C. Diff Infection Wnoq-yc-Eqwj (Burkinan) documented in this encounter Medications at Time of Discharge acetaminophen (TYLENOL) 325 MG tablet Take 3 tablets (975 mg total) by mouth every 8 hours as needed 100 tablet 5 03/01/20 25 cyclobenzaprine (FLEXERIL) 5 MG tablet Take 1 tablet (5 mg total) by mouth 3 times a day. 90 tablet 01/30/2025 11:36 AM EDT 5 ergocalciferol (ERGOCALCIFEROL) 1,250 mcg (50,000 unit) capsuleIndications:E ncounter for therapeutic drug monitoring,S/P [place]Hypomagnes emia,Kidney transplant recipient,Hypertensi on, unspecified type,Gastroesophagea l reflux disease, unspecified whether esophagitis present Take 1 capsule (50,000 Units total) by mouth once a week. 4 capsule 2 5 famotidine (PEPCID) 20 MG tabletIndications:En counter for therapeutic drug monitoring,S/P liver transplant [place] [place]Hypomagnes emia,Kidney transplant recipient,Hypertensi on, unspecified type,Gastroesophagea l reflux disease, unspecified whether esophagitis present Take 1 tablet (20 mg total) by mouth 2 times a day. 60 tablet 2 5 gabapentin (NEURONTIN) 100 MG capsuleIndications:E ncounter for therapeutic drug monitoring,S/P liver transplant [place] [place]Hypomagnes emia,Kidney transplant recipient,Hypertensi on, unspecified type,Gastroesophagea l reflux disease, unspecified whether esophagitis present Take 1 capsule (100 mg total) by mouth 2 times a day. Work on decreasing to one capsule daily. 60 capsule 5 levothyroxine (SYNTHROID) 75 MCG tablet Take 1 tablet (75 mcg total) by mouth every morning before breakfast. lidocaine (LIDODERM) 5 % Place 1 patch onto the skin daily. Apply patch for 12 hours and then remove patch and leave off for 12 hours. 30 patch 01/30/2025 11:36 AM EDT 5 loratadine (CLARITIN) 10 mg tablet Take 1 tablet (10 mg total) by mouth daily as needed for Allergies (itching). 30 tablet 10/17/2024 10:24 AM EDT 5 methocarbamoL (ROBAXIN) 500 MG tablet Take 2 tablets (1,000 mg total) by mouth 3 times a day. 120 tablet 01/30/2025 11:36 AM EDT 5 mycophenolate (CELLCEPT) 250 mg capsuleIndications:E ncounter for therapeutic drug monitoring,S/P liver [place] [place]Hypomagnes emia,Kidney transplant recipient,Hypertensi on, unspecified type,Gastroesophagea l reflux disease, unspecified whether esophagitis present Take 2 capsules (500 mg total) by mouth 2 times a day. 120 capsule 5 5 naltrexone (DEPADE) 50 mg tablet Take 1 tablet (50 mg total) by mouth daily. 30 tablet 5 5 NIFEdipine (PROCARDIA-XL) 30 MG (OSM) 24 hr tabletIndications:En counter for therapeutic drug monitoring,S/P liver transplant [place]Hypomagnes emia,Kidney transplant recipient,Hypertensi on, unspecified type,Gastroesophagea l reflux disease, unspecified whether esophagitis present Take 1 tablet by mouth once daily 30 tablet 2 5 predniSONE (DELTASONE) 5 MG tablet Take 2 tablets (10 mg total) by mouth daily. 60 tablet 5 tacrolimus (PROGRAF) 1 MG capsuleIndications:P revention of Kidney Transplant Rejection,Prevention of Liver Transplant Rejection Take 5 capsules (5 mg total) by mouth every morning AND 6 capsules (6 mg total) every evening. Use as directed. Indications: Prevention of Kidney Transplant Rejection, Prevention of Liver Transplant Rejection. 330 capsule 5 5 fidaxomicin (DIFICID) 200 mg Tab tablet Take 1 tablet (200 mg total) by mouth 2 times a day for 8 days. 16 tablet 01/30/2025 11:36 AM EDT 5 02/08/20 25 magnesium chloride (SLOW MAG) 71.5 mg TbECIndications:hypo magnesemia Take 2 tablets (143 mg total) by mouth 3 times a day. Indications: hypomagnesemia 180 tablet 2 5 02/03/20 25 FLUoxetine (PROZAC) 20 MG capsule Take 1 capsule (20 mg total) by mouth daily. 30 capsule 2 5 02/10/20 25 documented as of this encounter Progress Notes [...] and treatment with this patient/family. Please page [phone] with any additional questions or concerns. Thank [...] (01/29) LFTs 01/29/2025 \ 0.5 / \ 0.08 / \ / 19 / \ / 59 \ Lipids 10/07/2024 Value TChol <25 (10/07) Trig 30 (10/07) LDL 4* (10/07) HDL See Note (10/07) PT/INR/PTT - 12/23/2024 PT 10.5 (12/23) INR 0.94 (12/23) PTT 41.7* (10/25) Signed: Bisi Gonzalez MD 01/29/2025 9:15 AM Pager: [phone] * Feliciano Gomez CNP - 01/29/2025 8:12 [...] PHOS -- 4.4 5.6* Recent Labs 01/27/25201901/28/25 0701/29/25 0555 AST 20 17 19 ALT 26 [...] Continuous Infusions: PRN Meds: acetaminophen ASSESSMENT/PLAN Julien Gilbetr is a 39 y.o. male with past [...] plan per attending physician Feliciano Gomez CNP ,MECHANICAL SERVICE TECHNICIAN Transplant Surgery 01/29/2025 This note was completely [...] plan per attending physician Feliciano Gomez CNP ,MECHANICAL SERVICE TECHNICIAN Transplant Surgery 01/28/2025 Cosigned by Lydia Sanchez [...] Sevilla MD - 01/27/2025 7:19 PM EDT [facility] ED Note Date of Service: 01/27/2025 Reason [...] 144/94 -- -- 86 22 98 % 01/27/25 2033 (!) 143/99 -- -- 87 13 97 [...] History and Physical Patient: Julien Gilbert CSN: [id number] History CC: neutropenic fevers, diarrhea HPI: Julien [...] Received from [facility] Overall Financial Resource Strain (CARDIA) Difficulty of [...] No Physical Activity: Unknown (07/14/2024) Received from [facility] Exercise Vital Sign Days of Exercise per Week: Patient unable to answer Minutes of Exercise per Session: Not on file Stress: Patient Unable To Answer (07/14/2024) Received from [facility] [employer] - Occupational Stress Questionnaire Feeling of Stress : Patient unable to answer Social Connections: Patient Unable To Answer (07/14/2024) Received from [facility] Social Connection and Isolation Panel [NHANES] [...] SQH Admit to floor SHELBY BLANCO MD [facility] General Surgery Cosigned by Lydia Sanchez MD [...] this encounter Consult Notes * NUBIA Tian, EXTRACT WRINGER - 01/28/2025 11:02 AM EDT [facility] Alcohol Audit Julien Gilbert [id number] Alcohol Level Alcohol Level obtained?: No [...] meet with Transplant Psychologist as needed. NUBIA TIAN, RONALDO 01/28/2025 11:02 AM * Soco Mendez DO - 01/28/2025 9:09 AM EDTAssociated Order(s): IP CONSULT TO INFECTIOUS DISEASES Images from the original note were not included. Department of Infectious Diseases Consult Note 01/28/2025 Referring Physician: Lydia Sanchez MD Patient's Name: Julien Gilbert CSN: [id number] Reason for Consult Antimicrobial Recommendations Assessment & [...] chicken or bird exposure. Remote cruise to [email or web address], but no recent international travel. Microbiology Blood [...] liver (CMS-HCC) Esophageal varices (CMS-HCC) Hepatorenal syndrome ([facility]) Hypertension Other hyperlipidemia 07/26/2024 Renal cell carcinoma (CMS-HCC) Thrombocytopenia ([facility]) Thyroid disease Social Hx: Social History[1] Family [...] 100 102 CO2 25 26 BUN 16 17 CREATININE 1.02 1.14 GLUCOSE 93 91 PHOS [...] pain. Bisi Gonzalez MD Infectious Diseases Pager [phone] * NUBIA Tian, EXTRACT WRINGER - 01/28/2025 8:21 AM EDT HEALTH Care Management/Social Work Assessment Patient Information Patient Name: Julien Gilbert Hospital Day: 1 Inpatient/Observation: Inpatient Admit Date: 01/27/2025 Admission Diagnosis: Diarrhea of presumed infectious origin [R19.7] Attending provider: Lydia Sanchez MD PCP: Enedina Mcguire NP [facility] [address] [place] [address], [facility] [address] [address] [facility] [place], [place] - [address] [facility] [address] [facility] [address] [facility] [address] [place] [address] Pertinent Medications Anticoagulation therapy: No New Diabetic: No Issues related to obtaining medications: none Payor Information Medical Insurance Coverage: Payor: [employer] / Plan: [employer] / Product Type: *No Product type* / Secondary Payor: [facility] Functional Assessment Functional Assessment Assessment Information Obtained [...] to [facility] Services Status & Connection to [place] Services Are [...] in coordination of care for discharge planning. CM will provide intervention and contact based on the patient and family's needs. SWCM verified patient's supports at discharge. SWCM discussed transplant needs and follow up appointments. Per Chart Review, Patient received a liver transplant 10/26/24 and a kidney transplant 10/27/24. Per H&P, Neutropenic fevers, diarrhea, Julien Gilbert is a 39 y.o. male [...] Patient reported that he is not a [employer]. Patient reported he is employed full- time. [...] SW provided the family with SW contact [phone]. Patient/Family aware and taking part in the [...] provider(s); financial interest(s) are disclosed as appropriate. SOTERO HILLMAN, SENIOR SOLUTIONS ARCHITECT, EXTRACT WRINGER [phone] documented in this encounter Nursing Notes * [...] and is agreeable. Receiving RN may call [phone] to consult ED RN with questions regarding [...] RN - 01/27/2025 7:07 PM EDT Bed: FU Expected date: Expected time: Means of arrival: [...] Patient will remain free of falls Goal: Vina Fall Precautions Outcome: Progressing Problem: Daily Care [...] Tian LSW - 01/29/2025 11:45 AM EDT [facility] Case Management/Social Work Department Progress Note Patient [...] disease. PCP: Enedina Mcguire NP Home Pharmacy: [facility] - [place], [facility] [address] [place] [address] [facility] - [place], [place] - [address] [place] [address] Medical Insurance Coverage: Payor: [employer] [facility] / Plan: [facility] / Product Type: *No Product type* / Other Pertinent Information SWCM attended multidisciplinary rounds with the Transplant Team. SWCM reviewed patient's chart. Pertea, patient is not medically ready to discharge. Patient to receive CT scan. Patient goes outpatient for lab draws. Discharge Plan Anticipated discharge plan: Home w OP labs Anticipated discharge date: 01/30 CM/SW will continue to follow and remain available for discharge planning needs. NUBIA TIAN, RONALDO [phone] * Plan of Care - Vandana Vilchis [...] Patient will remain free of falls Goal: Vina Fall Precautions Outcome: Progressing Problem: Daily Care [...] Outcome: Progressing * Plan of Care - Marixa Mock RN - 01/28/2025 1:27 AM EDT [...] Patient will remain free of falls Goal: Vina Fall Precautions Outcome: Progressing * ED Medical Screening Exam - NAA Dunn - 01/27/2025 6:36 PM EDT [facility] Emergency Care Provider Note MEDICAL SCREENING EXAM [...] Pending) There is a bed available in [facility] and the patient will be taken directly to a room Brief HPI uJlien Gilbert is a 39 y.o. male presenting [...] hyperlipidemia 07/26/2024 Renal cell carcinoma (CMS-HCC) Thrombocytopenia ([facility]) Thyroid disease Surgical History: Past Surgical History: [...] documented in this encounter Plan of Treatment Pending Results Name Type Priority Associated Diagnoses Date /Time Blood Culture, Acid Fast (Blood) Microbiology Routine 01/27/2025 8:20 PM EDT Fungus culture, blood (Blood) Microbiology Routine 01/27/2025 8:20 PM EDT documented as of this encounter Procedures Procedure Name Priority Date/Time Associated Diagnosis Comments DIFFERENTIAL Add-On 01/30/2025 7:41 AM EDT HEPATIC FUNCTION PANEL STAT 5:51 AM EDT RENAL FUNCTION PANEL W/EGFR STAT 01/30/2025 5:51 AM EDT TACROLIMUS LEVEL Timed 01/30/2025 5:51 AM EDT CBC STAT 01/30/2025 5:51 AM EDT MAGNESIUM STAT 01/30/2025 5:[address] NECK WITH IV CONTRAST Routine 2:00 PM EDT HEPATIC FUNCTION PANEL Routine [...] Routine 9:30 PM EDT UPPER RESPIRATORY VIRAL/BACTERIAL PANEL-RIB SAWYER ONLY Routine 01/27/2025 9:30 PM EDT LACTIC ACID, VENOUS BLOOD GAS STAT 01/27/2025 9:30 PM EDT HISTOPLASMA/BLASTOMYCES AG, EIA, U Routine 01/27/2025 8:44 PM EDT STREP PNEUMO-LEGIONELLA URINE ANTIGEN Routine 01/27/2025 8:44 PM EDT URINALYSIS, MICROSCOPIC STAT 01/28/20 8:44 PM EDT URINALYSIS-MACROSCOPIC W/REFLEX TO MICROSCOPIC STAT 01/27/2025 8:44 PM EDT HISTOPLASMA/BLASTOMYCES AG, EIA, S Routine 01/27/2025 8:20 PM EDT FUNGITELL VGQN-F-AFDGHO Routine 01/28/20 8:20 PM EDT CRYPTOCOCCUS ANTIGEN, [...] XR CHEST PA AND LATERAL TAMIR 01/28/20 7:02 PM EDT documented in this encounter Results * (ABNORMAL) Differential (01/30/2025 7:41 AM EDT) Neutrophils Relative 39.1(L) 40.0 - 80.0 % 01/30/2025 8:09 AM EDT [facility] Lymphocytes Relative 43.8 15.0 - 45.0 % 01/30/2025 8:09 AM EDT [facility] Monocytes Relative 14.2(H) 0.0 - 12.0 % 01/30/2025 8:09 AM EDT [facility] Eosinophils Relative 2.2 0.0 - 8.0 % 01/30/2025 8:09 AM EDT [facility] Basophils Relative 0.7 0.0 - 1.0 % 01/30/2025 8:09 AM EDT [facility] nRBC 0 0 - 0 /100 WBC 01/30/2025 8:09 AM EDT [facility] Neutrophils Absolute 782(L) 1,520 - 8,640 /uL 01/30/2025 8:09 AM EDT [facility] Lymphocytes Absolute 876 570 - 4,860 /uL 01/30/2025 8:09 AM EDT [facility] Monocytes Absolute 284 0 - 1,296 /uL 01/30/2025 8:09 AM EDT [facility] Eosinophils Absolute 44 0 - 864 /uL 01/30/2025 8:09 AM EDT [facility] Basophils Absolute 14 0 - 108 /uL 01/30/2025 8:09 AM EDT [facility] Whole Blood 01/30/2025 7:41 AM EDT 01/30/2025 8:01 AM EDT Feliciano Garcia [facility] LAB BLOOD ORDERABLES Final Resu lt [facility] [address] [id number], [facility] * Tacrolimus level (01/30/2025 5:51 AM EDT) [facility] Tacrolimus (LC-MS) 6.5 3.0 - 15.0 ng/mL 01/30/2025 11:11 AM EDT [facility] Comment:Performed via liquid chromatography tandem mass spectrometry. Detection limit: 1 ng/mL. Individual target concentrations may vary due to target organ and time after transplant. This test has been developed and its performance characteristics determined by [facility] Laboratory which is certified under the Clinical [...] Hill MD LAB BLOOD ORDERABLES Final Result [facility] [address] [place] [address], [facility] * (ABNORMAL) Renal Function Panel w/EGFR (01/30/2025 5:51 AM EDT) Sodium 139 133 - 146 mmol/L 01/30/2025 7:06 AM EDT [facility] Potassium 3.5 3.5 - 5.3 mmol/L 01/30/2025 7:06 AM EDT [facility] Chloride 105 98 - 110 mmol/L 01/30/2025 7:06 AM EDT [facility] CO2 26 21 - 33 mmol/L 01/30/2025 7:06 AM EDT [facility] Anion Gap 8 3 - 16 mmol/L 01/30/2025 7:06 AM EDT [facility] BUN 29(H) 7 - 25 mg/dL 01/30/2025 7:06 AM EDT [facility] Creatinine 1.14 0.60 - 1.30 mg/dL 01/30/2025 7:06 AM EDT [facility] Glucose 114(H) 70 - 100 mg/dL 01/30/2025 7:06 AM EDT [facility] Calcium 8.7 8.6 - 10.3 mg/dL 01/30/2025 7:06 AM EDT [facility] Phosphorus 5.1(H) 2.1 - 4.7 mg/dL 01/30/2025 7:06 AM EDT [facility] Albumin 4.1 3.5 - 5.7 g/dL 01/30/2025 7:06 AM EDT [facility] Osmolality, Calculated 295 278 - 305 mOsm/kg 01/30/2025 7:06 AM EDT [facility] EGFR 83 01/30/2025 7:06 AM EDT [facility] Comment:As of 2021, the estimated [...] 5:51 AM EDT 01/30/2025 6:31 AM EDT us Carlton Hill MD LAB BLOOD ORDERABLES Final Result [facility] [address] [id number], [facility] * (ABNORMAL) Hepatic Function Panel (01/30/2025 5:51 AM EDT) Total Bilirubin 0.3 0.0 - 1.5 mg/dL 01/30/2025 7:06 AM EDT [facility] Bilirubin, Direct 0.05 0.00 - 0.40 mg/dL 01/30/2025 7:06 AM EDT [facility] AST 13 13 - 39 U/L 01/30/2025 7:06 AM EDT [facility] ALT 14 7 - 52 U/L 01/30/2025 7:06 AM EDT [facility] Alkaline Phosphatase 60 36 - 125 U/L 01/30/2025 7:06 AM EDT [facility] Total Protein 5.9(L) 6.4 - 8.9 g/dL 01/30/2025 7:06 AM EDT [facility] Albumin 4.1 3.5 - 5.7 g/dL 01/30/2025 7:06 AM EDT [facility] Bilirubin, Indirect 0.25 0.00 - 1.10 mg/dL 01/30/2025 7:06 AM EDT [facility] Plasma 01/30/2025 5:51 AM EDT 01/30/2025 6:31 AM EDT Carlton Hill MD LAB BLOOD ORDERABLES Final Result [facility] [address] [facility]. [address] * Magnesium (01/30/2025 5:51 AM EDT) Magnesium 1.7 1.5 - 2.5 mg/dL 01/30/2025 7:06 AM EDT [facility] Plasma 01/30/2025 5:51 AM EDT 01/30/2025 6:31 AM EDT Carlton Hill MD LAB BLOOD ORDERABLES Final Result Performing Organization Address City/[facility]/ZIP Co de Phone Number [facility] [address] * (ABNORMAL) CBC (01/30/2025 5:51 AM EDT) WBC 2.1(L) 3.8 - 10.8 10E3/uL 01/30/2025 6:41 AM EDT [facility] RBC 3.41(L) 4.20 - 5.80 10E6/uL 01/30/2025 6:41 AM EDT [facility] Hemoglobin 11.2(L) 13.2 - 17.1 g/dL 01/30/2025 6:41 AM EDT [facility] Hematocrit 31.9(L) 38.5 - 50.0 % 01/30/2025 6:41 AM EDT [facility] MCV 93.7 80.0 - 100.0 fL 01/30/2025 6:41 AM EDT [facility] MCH 32.9 27.0 - 33.0 pg 01/30/2025 6:41 AM EDT [facility] MCHC 35.1 32.0 - 36.0 g/dL 01/30/2025 6:41 AM EDT [facility] RDW 14.8 11.0 - 15.0 % 01/30/2025 6:41 AM EDT [facility] Platelets 95(L) 140 - 400 10E3/uL 01/30/2025 6:41 AM EDT [facility] MPV 6.4(L) 7.5 - 11.5 fL 01/30/2025 6:41 AM EDT [facility] Whole Blood 01/30/2025 5:51 AM EDT 01/30/2025 6:33 AM EDT us Carlton Hill MD LAB BLOOD ORDERABLES Final Result Performing Organization Address City/State/[place] Co de Phone Number [facility] [address] * CT Neck With IV contrast (01/29/2025 [...] cavity, parapharyngeal space, and retropharyngeal space. Normal white lead filterer space, infratemporal fossa, and buccal space. Infrahyoid [...] CT images of the neck were obtained mL of IOHEXOL 350 MG IODINE/ML INTRAVENOUS SOLUTION administeredintravenously . Sagittal and coronal 2D multiplanar reconstructions wereperformed at the scanner. COMPARISON: None available FINDINGS: Adequate diagnostic quality. Nasopharynx: Symmetric with no mass. Normal torus tubarius, fossa ofRosenmuller, and adenoid tonsillar tissue. Suprahyoid neck: Normal oropharynx, oral cavity, parapharyngeal space, andretropharyngeal space. Normal white lead filterer space, infratemporal fossa, andbuccal space. Infrahyoid neck: [...] Tacrolimus level (01/29/2025 5:55 AM EDT) Pathologist [facility] Tacrolimus (LC-MS) 9.1 3.0 - 15.0 ng/mL 01/29/2025 9:10 AM EDT [facility] Comment:Performed via liquid chromatography tandem mass spectrometry. Detection limit: 1 ng/mL. Individual target concentrations may vary due to target organ and time after transplant. This test has been developed and its performance characteristics determined by [facility] which is certified under the Clinical [...] Hill MD LAB BLOOD ORDERABLES Final Result [facility] [address] [place], [place] [address] * (ABNORMAL) Renal Function Panel w/EGFR (01/29/2025 5:55 AM EDT) Sodium 138 133 - 146 mmol/L 01/29/2025 7:13 AM EDT [facility] Potassium 3.9 3.5 - 5.3 mmol/L 01/29/2025 7:13 AM EDT [facility] Chloride 102 98 - 110 mmol/L 01/29/2025 7:13 AM EDT [facility] CO2 27 21 - 33 mmol/L 01/29/2025 7:13 AM EDT [facility] Anion Gap 9 3 - 16 mmol/L 01/29/2025 7:13 AM EDT [facility] BUN 23 7 - 25 mg/dL 01/29/2025 7:13 AM EDT [facility] Creatinine 1.39(H) 0.60 - 1.30 mg/dL 01/29/2025 7:13 AM EDT [facility] Glucose 108(H) 70 - 100 mg/dL 01/29/2025 7:13 AM EDT [facility] Calcium 9.6 8.6 - 10.3 mg/dL 01/29/2025 7:13 AM EDT [facility] Phosphorus 5.6(H) 2.1 - 4.7 mg/dL 01/29/2025 7:13 AM EDT [facility] Albumin 4.8 3.5 - 5.7 g/dL 01/29/2025 7:13 AM EDT [facility] Osmolality, Calculated 290 278 - 305 mOsm/kg 01/29/2025 7:13 AM EDT [facility] EGFR 65 01/29/2025 7:13 AM EDT [facility] Comment:As of 2021, the estimated [...] BLOOD ORDERABLES Final Result Performing Organization Address City/State/[place] Co de Phone Number [facility] [address] * Hepatic Function Panel (01/29/2025 5:55 AM EDT) Total Bilirubin 0.5 0.0 - 1.5 mg/dL 01/29/2025 7:13 AM EDT [facility] Bilirubin, Direct 0.08 0.00 - 0.40 mg/dL 01/29/2025 7:13 AM EDT [facility] AST 19 13 - 39 U/L 01/29/2025 7:13 AM EDT [facility] ALT 19 7 - 52 U/L 01/29/2025 7:13 AM EDT [facility] Alkaline Phosphatase 59 36 - 125 U/L 01/29/2025 7:13 AM EDT [facility] Total Protein 7.0 6.4 - 8.9 g/dL 01/29/2025 7:13 AM EDT [facility] Albumin 4.8 3.5 - 5.7 g/dL 01/29/2025 7:13 AM EDT [facility] Bilirubin, Indirect 0.42 0.00 - 1.10 mg/dL 01/29/2025 7:13 AM EDT [facility] Plasma 01/29/2025 5:55 AM EDT 01/29/2025 6:41 AM EDT Carlton Hill MD LAB BLOOD ORDERABLES Final Result Performing Organization Address [facility]/[place] Co de Phone Number [facility] [address] [place] [address] * Magnesium (01/29/2025 5:55 AM EDT) Magnesium 2.5 1.5 - 2.5 mg/dL 01/29/2025 7:13 AM EDT [facility] Plasma 01/29/2025 5:55 AM EDT 01/29/2025 6:41 AM EDT Carlton Hill MD LAB BLOOD ORDERABLES Final Result [facility] [address] [facility]. [address] * (ABNORMAL) CBC (01/29/2025 5:55 AM EDT) WBC 2.4(L) 3.8 - 10.8 10E3/uL 01/29/2025 6:53 AM EDT [facility] RBC 3.88(L) 4.20 - 5.80 10E6/uL 01/29/2025 6:53 AM EDT [facility] Hemoglobin 12.8(L) 13.2 - 17.1 g/dL 01/29/2025 6:53 AM EDT [facility] Hematocrit 36.6(L) 38.5 - 50.0 % 01/29/2025 6:53 AM EDT [facility] MCV 94.1 80.0 - 100.0 fL 01/29/2025 6:53 AM EDT [facility] MCH 32.9 27.0 - 33.0 pg 01/29/2025 6:53 AM EDT [facility] MCHC 34.9 32.0 - 36.0 g/dL 01/29/2025 6:53 AM EDT [facility] RDW 14.8 11.0 - 15.0 % 01/29/2025 6:53 AM EDT [facility] Platelets 119(L) 140 - 400 10E3/uL 01/29/2025 6:53 AM EDT [facility] MPV 6.2(L) 7.5 - 11.5 fL 01/29/2025 6:53 AM EDT [facility] Whole Blood 01/29/2025 5:55 AM EDT 01/29/2025 6:41 AM EDT Carlton Hill MD LAB BLOOD ORDERABLES Final Result [facility] [address] * Sed Rate (01/29/2025 5:55 AM EDT) Sed Rate 2 0 - 15 mm/hr 01/29/2025 7:03 AM EDT [facility] Whole Blood 01/29/2025 5:55 AM EDT 01/29/2025 6:41 AM EDT Feliciano Gomez [facility] LAB BLOOD ORDERABLES Final Resu lt Performing Organization Address [facility]/[place] Co de Phone Number [facility] [address] [facility]. [address] * C-Reactive Protein (01/29/2025 5:55 AM EDT) Pathologist [facility] CRP 4.1 1.0 - 10.0 mg/L 01/29/2025 7:13 AM EDT [facility] Plasma 01/29/2025 5:55 AM EDT 01/29/2025 6:41 AM EDT Feliciano Gomez [facility] LAB BLOOD ORDERABLES Final Resu lt Performing Organization Address [facility] de Phone Number [facility] [address] [facility]. [address] * Giardia Cryptosporidium Antigens (Feces) (01/28/2025 9:27 PM EDT) [facility] Cryptosporidium Ag Negative Negative 2024 8:03 AM EDT [facility] Giardia Ag Negative Negative 01/29/2025 8:03 AM EDT [facility] Comment: Detection of Giardia and Cryptosporidium antigen is more sensitive and specific than microscopy. Because antigens are shed continuously, repeat testing is rarely warranted. Feces 01/28/2025 9:27 PM EDT 01/28/2025 10:07 PM EDT Comment:F Ruby Chiang MD MICROBIOLOGY - GENERAL ORDERAB LES Final Result Performing Organization Address [facility]/[place] Co de Phone Number [facility] [address] [place] [address] * Ova and Parasite Comprehensive w/Giardia (Feces) (01/28/2025 9:27 PM EDT) Pathologist [facility] O & P Method: Concentration and Trichrome Stain [facility] Results No Amoeba, Ova, Or Parasites Seen. -- O and P examination of additional specimens is recommended only for symptomatic patients, immunosuppressed patients or those with an appropriate travel history. [facility] Feces FECES / Unknown 01/28/2025 9 :27 PM EDT 01/28/2025 10:07 PM EDT Comment:F Ruby Chiang MD MICROBIOLOGY - GENERAL ORDERAB LES Final Result Performing Organization Address [facility]/[place] Co de Phone Number [facility] [address] * Clostridium Difficile Toxin A/B Antigen (01/28/2025 1:21 PM EDT) [facility] CDIFF Tox AGN Negative Negative 01/28/2025 10:35 PM EDT [facility] Comment:C. difficile nucleic acid testing is positive [...] ORDERABL ES Final Result Performing Organization Address [facility]/[place] Co de Phone Number [facility] [address] [facility]. [address] * (ABNORMAL) Clostridium difficile DNA Amplification (01/28/2025 1:21 PM EDT) [facility] Clost. Diff DNA Amp. Positive( A) Negative 01/28/2025 11:22 PM EDT [facility] Comment:Positive indicates t oxigenic C. difficile was detected in the sample. Negative indicates that toxigenic C. difficile was not detected above the limit of the detection of the assay. The test methodology is a FDA approved DNA amplification assay. Stool, Liquid FECES / Unknown 01/28/2025 1:21 PM EDT 01/28/2025 1:48 PM EDT Comment:F us Feliciano Gomez SINGLE FOLD MACHINE OPERATOR BODY FLUIDS AND STOOLS ORDERABL ES Final Result [facility] [address] [place] [address], [facility] * Phosphatidylethanol Confirmation, B (01/28/2025 7:14 AM [...] PEth Interpretation Positive. 01/30 9:58 AM EDT [facility] Comment: ADDITIONAL INFORMATION This report is intended for use in clinical monitoring and management of patients. It is not intended for use in employment-related testing. This test was developed and its performance characteristics determined by [facility] in a manner consistent with CLIA requirements. This test has not been cleared or approved by the U.S. Food and Drug Administration. Test Performed by: [facility] - [address] [address] Admittance Attendant: Kathy Ortiz Ph.D.; CLIA# [id number] Whole Blood 01/28/2025 7:14 AM EDT 01/30/2025 9:58 AM EDT Carlton Hill MD LAB BLOOD ORDERABLES Final Result Performing Organization Address [facility] de Phone Number [facility] [address] [place] [address] * (ABNORMAL) Tacrolimus level (01/28/2025 7:14 AM EDT) Pathologist [facility] Tacrolimus (LC-MS) 16.4(H) 3.0 - 15.0 ng/mL 01/28/2025 12:41 PM EDT [facility] Comment:Performed via liquid chromatography tandem mass spectrometry. Detection limit: 1 ng/mL. Individual target concentrations may vary due to target organ and time after transplant. This test has been developed and its performance characteristics determined by [facility] which is certified under the Clinical [...] BLOOD ORDERABLES Final Result Performing Organization Address [facility] Phone Number [facility] [address] [place] [address]. [address] * Renal Function Panel w/EGFR (01/28/2025 7:14 AM EDT) Sodium 138 133 - 146 mmol/L 01/28/2025 9:00 AM EDT [facility] Potassium 3.7 3.5 - 5.3 mmol/L 01/28/2025 9:00 AM EDT [facility] Chloride 102 98 - 110 mmol/L 01/28/2025 9:00 AM EDT [facility] CO2 26 21 - 33 mmol/L 01/28/2025 9:00 AM EDT [facility] Anion Gap 10 3 - 16 mmol/L 01/28/2025 9:00 AM EDT [facility] BUN 17 7 - 25 mg/dL 01/28/2025 9:00 AM EDT [facility] Creatinine 1.14 0.60 - 1.30 mg/dL 01/28/2025 9:00 AM EDT [facility] Glucose 91 70 - 100 mg/dL 01/28/2025 9:00 AM EDT [facility] Calcium 9.3 8.6 - 10.3 mg/dL 01/28/2025 9:00 AM EDT [facility] Phosphorus 4.4 2.1 - 4.7 mg/dL 01/28/2025 9:00 AM EDT [facility] Albumin 4.2 3.5 - 5.7 g/dL 01/28/2025 9:00 AM EDT [facility] Osmolality, Calculated 287 278 - 305 mOsm/kg 01/28/2025 9:00 AM EDT [facility] EGFR 83 01/28/2025 9:00 AM EDT [facility] Comment:As of 2021, the estimated [...] AM EDT 01/28/2025 8:22 AM EDT us Carlton Hill MD LAB BLOOD ORDERABLES Final Result [facility] [address] * (ABNORMAL) Hepatic Function Panel (01/28/2025 7:14 AM EDT) Total Bilirubin 0.8 0.0 - 1.5 mg/dL 01/28/2025 9:00 AM EDT [facility] Bilirubin, Direct 0.14 0.00 - 0.40 mg/dL 01/28/2025 9:00 AM EDT [facility] AST 17 13 - 39 U/L 01/28/2025 9:00 AM EDT [facility] ALT 19 7 - 52 U/L 01/28/2025 9:00 AM EDT [facility] Alkaline Phosphatase 45 36 - 125 U/L 01/28/2025 9:00 AM EDT [facility] Total Protein 6.2(L) 6.4 - 8.9 g/dL 01/28/2025 9:00 AM EDT [facility] Albumin 4.2 3.5 - 5.7 g/dL 01/28/2025 9:00 AM EDT [facility] Bilirubin, Indirect 0.66 0.00 - 1.10 mg/dL 01/28/2025 9:00 AM EDT [facility] Plasma 01/28/2025 7:14 AM EDT 01/28/2025 8:22 AM EDT Carlton Hill MD LAB BLOOD ORDERABLES Final Result [facility] [address] [facility]. [address] * (ABNORMAL) Magnesium (01/28/2025 7:14 AM EDT) Magnesium 1.1(L) 1.5 - 2.5 mg/dL 01/28/2025 9:00 AM EDT [facility] Plasma 01/28/2025 7:14 AM EDT 01/28/2025 8:22 AM EDT Carlton Hill MD LAB BLOOD ORDERABLES Final Result [facility] [address] * (ABNORMAL) CBC (01/28/2025 7:14 AM EDT) WBC 2.0(L) 3.8 - 10.8 10E3/uL 01/28/2025 9:10 AM EDT [facility] RBC 3.36(L) 4.20 - 5.80 10E6/uL 01/28/2025 9:10 AM EDT [facility] Hemoglobin 11.5(L) 13.2 - 17.1 g/dL 01/28/2025 9:10 AM EDT [facility] Hematocrit 31.0(L) 38.5 - 50.0 % 01/28/2025 9:10 AM EDT [facility] MCV 92.4 80.0 - 100.0 fL 01/28/2025 9:10 AM EDT [facility] MCH 34.2(H) 27.0 - 33.0 pg 01/28/2025 9:10 AM EDT [facility] MCHC 37.0(H) 32.0 - 36.0 g/dL 01/28/2025 9:10 AM EDT [facility] RDW 14.9 11.0 - 15.0 % 01/28/2025 9:10 AM EDT [facility] Platelets 86(L) 140 - 400 10E3/uL 01/28/2025 9:10 AM EDT [facility] MPV 6.2(L) 7.5 - 11.5 fL 01/28/2025 9:10 AM EDT [facility] Whole Blood 01/28/2025 7:14 AM EDT 01/28/2025 8:22 AM EDT Carlton Hill MD LAB BLOOD ORDERABLES Final Result [facility] [address] * CT Head WO contrast (01/28/2025 [...] Detected Not Detected 01/28/2025 3:11 AM EDT [facility] Salmonella species Not Detected Not Detected 01/28/2025 3:11 AM EDT [facility] Shigella species Not Detected Not Detected 01/28/2025 3:11 AM EDT [facility] Vibrio Group (Vibrio cholerae, Vibrio parahaemolyticus) Not Detected Not Detected 01/28/2025 3:11 AM EDT [facility] Yersinia enterocolitica Not Detected Not Detected 01/28/2025 3:11 AM EDT [facility] Shiga toxin 1 Not Detected Not Detected 01/28/2025 3:11 AM EDT [facility] Shiga toxin 2 Not Detected Not Detected 01/28/2025 3:11 AM EDT [facility] Norovirus Not Detected Not Detected 01/28/2025 3:11 AM EDT [facility] Rotavirus Not Detected Not Detected 01/28/2025 3:11 AM EDT [facility] Comment: The Enteric Pathogen Panel [...] PM EDT 01/27/2025 10:20 PM EDT Comment:F us Shelby Blanco MD BODY FLUIDS AND STOOLS ORDERABLE S Final Result [facility] [address] [place] [address], [facility] * Respiratory viral panel (01/27/2025 9:30 PM EDT) [facility] Adenovirus Not Detected Not Detected 01/28/2025 12:20 AM EDT [facility] Coronavirus (229E,HKU1,NL63,OC 43) Not Detected Not Detected 01/28/2025 12:20 AM EDT [facility] SARS-CoV-2 Not Detected Not Detected 01/28/2025 12:20 AM EDT [facility] Human Metapneumovirus Not Detected Not Detected 01/28/2025 12:20 AM EDT [facility] Human Rhinovirus/Enterov irus Not Detected Not Detected 01/28/2025 12:20 AM EDT [facility] Influenza A Not Detected Not Detected 01/28/2025 12:20 AM EDT [facility] Influenza A H1 Not Detected Not Detected 01/28/2025 12:20 AM EDT [facility] Influenza A/H1-2009 Not Detected Not Detected 01/28/2025 12:20 AM EDT [facility] Influenza A H3 Not Detected Not Detected 01/28/2025 12:20 AM EDT [facility] Influenza B Not Detected Not Detected 01/28/2025 12:20 AM EDT [facility] Parainfluenza 1 Not Detected Not Detected 01/28/2025 12:20 AM EDT [facility] Parainfluenza 2 Not Detected Not Detected 01/28/2025 12:20 AM EDT [facility] Parainfluenza 3 Not Detected Not Detected 01/28/2025 12:20 AM EDT [facility] Parainfluenza 4 Not Detected Not Detected 01/28/2025 12:20 AM EDT [facility] Resp. Syncycial Virus A Not Detected Not Detected 01/28/2025 12:20 AM EDT [facility] Resp. Syncycial Virus B Not Detected Not Detected 01/28/2025 12:20 AM EDT [facility] Chlamydia pneumoniae Not Detected Not Detected 01/28/2025 12:20 AM EDT [facility] Mycoplasma pneumoniae Not Detected Not Detected 01/28/2025 12:20 AM EDT [facility] Comment: The Respiratory Viral-Bacterial Panel [...] to the [facility] in accordance with state requirements. For a fact sheet for healthcare providers, see https://www.fda.gov/media/854184/download. For a fact sheet for patients, see https://www.fda.gov/media/659192/download. Nasopharyngeal Swab NASOPHARYNGEAL STRUCTURE / Unknown 01/27/2025 9:30 PM EDT 01/27/2025 10:20 PM EDT us Shelby Blanco MD BODY FLUIDS AND STOOLS ORDERABLE S Final Result Performing Organization Address City/State/[place] Co de Phone Number [facility] [address] * Lactic acid, venous, whole blood (01/27/2025 9:30 PM EDT) Lactate, Shakeel 1.4 0.5 - 1.6 mmol/L 01/27/2025 9:42 PM EDT [facility] Blood, Venous 01/27/2025 9:3 0 PM EDT 01/27/2025 9:39 PM EDT Pamela JACOME LAB BLOOD ORDERABLES Final Res ult [facility] [address] * (ABNORMAL) Urinalysis, Microscopic (01/27/2025 8:44 PM EDT) RBC, UA <1 0 - 3 /HPF 01/27/2025 9:32 PM EDT [facility] WBC, UA 1 0 - 5 /HPF 01/27/2025 9:32 PM EDT [facility] Hyaline Casts, UA 75(H) 0 - 2 /LPF 01/27/2025 9:32 PM EDT [facility] Mucus, UA Present(A) None Seen /HPF 01/27/2025 9:32 PM EDT [facility] Urine 01/27/2025 8:44 PM EDT 01/27/2025 9:01 PM EDT us Pamela JACOME URINE ORDERABLES Final Result Performing Organization Address [facility]/ZIP Co de Phone Number [facility] [address] * Strep Pneumo-Legionella Urine Antigen (01/27/2025 8:44 PM EDT) Strept Pneumo Ag Negative Negative 01/27/2025 11:12 PM EDT [facility] Legionella Antigen Negative Negative 01/27/2025 11:12 PM EDT [facility] Urine URINE SPECIMEN / Unknown 01/27/2025 8:44 PM EDT 01/27/2025 10:21 PM EDT Narrative [facility] - 01/27/2025 11:12 PM EDT Positive indicates detection of either Streptococcus pneumoniae antigen or Legionella pneumophila serogroup 1 antigen. Negative results do not rule out pneumococcal infection or infection with L. pneumophila serogroup 1, other serogroups of L. pneumophila, or other Legionella species. Shelby Blanco MD URINE ORDERABLES Final Result [facility] [address] * Histoplasma/Blastomyces Ag, EIA, U (01/27/2025 8:44 PM EDT) Histoplasma/Blasto myces Ag Result (Urine) Not Detected Not Detected 01/31/2025 11:06 AM EDT [facility] Comment: No antigen from Histoplasma or Blastomyces detected. False negative results may occur depending on extent of disease, and/or site of infection. Repeat testing on a new specimen if clinically indicated. Histoplasma/Blasto myces Ag Value (Urine) Not Detected ng/mL 01/31/2025 11:06 AM EDT [facility] Comment: ADDITIONAL INFORMATION This test was developed and its performance characteristics determined by [facility] in a manner consistent with CLIA requirements. This test has not been cleared or approved by the U.S. Food and Drug Administration. Test Performed by: [facility] [address] [place] [address] Admittance Attendant: Kathy Ortiz Ph.D.; CLIA# [id number] Urine URINE SPECIMEN / Unknown 01/27/2025 8:44 PM EDT 01/31/2025 11:06 AM EDT Shelby Blanco MD URINE ORDERABLES Final Result [facility] [address] * (ABNORMAL) Urinalysis-Macroscopic w/Rfx to Microsco (01/27/2025 8:44 PM EDT) Color, UA Yellow Yellow,Straw 01/27/2025 9:32 PM EDT [facility] Clarity, UA Clear Clear 01/27/2025 9:32 PM EDT [facility] Specific [place], UA 1.015 1.005 - 1.035 01/27/2025 9:32 PM EDT [facility] pH, UA 5.5 5.0 - 8.0 01/27/2025 9:32 PM EDT [facility] Protein, UA 30(A) Negative mg/dL 01/27/2025 9:32 PM EDT [facility] Glucose, UA Negative Negative mg/dL 01/27/2025 9:32 PM EDT [facility] Ketones, UA 20(A) Negative mg/dL 01/27/2025 9:32 PM EDT [facility] Bilirubin, UA Negative Negative 01/27/2025 9:32 PM EDT [facility] Blood, UA Negative Negative 01/27/2025 9:32 PM EDT [facility] Nitrite, UA Negative Negative 01/27/2025 9:32 PM EDT [facility] Urobilinogen, UA <2.0 0.2 - 1.9 mg/dL 01/27/2025 9:32 PM EDT [facility] Leukocyte Esterase, UA Negative Negative 01/27/2025 9:32 PM EDT [facility] Urine 01/27/2025 8:44 PM EDT 01/27/2025 8:53 PM EDT us Pamela JACOME URINE ORDERABLES Final Result [facility] [address] * Phosphatidylethanol Confirmation, B (01/27/2025 8:20 PM EDT) PETH 16:0/18.1 (POPETH) 446 Cutoff: 10 ng/mL 01/30/2025 9:59 AM EDT [facility] Comment: Phosphatidylethanol (PEth) homologues result [...] Cutoff: 10 ng/mL 01/30/2025 9:59 AM EDT [facility] Comment: PEth 16:0/18:2 (PLPEth) Reference ranges are not well established PEth Interpretation Positive. 01/30 9:59 AM EDT [facility] Comment: ADDITIONAL INFORMATION This report is intended for use in clinical monitoring and management of patients. It is not intended for use in employment-related testing. This test was developed and its performance characteristics determined by [facility] in a manner consistent with CLIA requirements. This test has not been cleared or approved by the U.S. Food and Drug Administration. Test Performed by: [facility] [place] [address] Admittance Attendant: Kathy Ortiz Ph.D.; CLIA# [id number] Whole Blood 01/27/2025 8:20 PM EDT 01/30/2025 9:59 AM EDT us Shelby Blanco MD LAB BLOOD ORDERABLES Final Resul t [facility] [address] [facility] [place] [address], [facility] * BK PCR, Blood (Renal Txp and BMT only) (01/27/2025 8:20 PM EDT) BKV IU DNA Quant, Blood Not Detected IU/mL 01/29/2025 1:48 PM EDT [facility] Comment: Beginning August 23, 2021, [facility] has transitioned BK viral load testing from [...] log 10 IU/mL 01/29/2025 1:48 PM EDT [facility] Comment:BKV DNA Not Detected Plasma 01/27/2025 8:20 PM EDT 01/27/2025 9:49 PM EDT Shelby Blanco MD LAB BLOOD ORDERABLES Final Resul t Performing Organization Address City/[facility]/ZIP Co de Phone Number [facility] [address] [place] [address], [facility] * Histoplasma/Blastomyces Ag, EIA, S (01/27/2025 8:20 PM EDT) Histoplasma/Blasto myces Ag Result (Serum) Not Detected Not Detected 01/30/2025 12:49 PM EDT [facility] Comment: No antigen from Histoplasma or Blastomyces detected. False negative results may occur depending on extent of disease, and/or site of infection. Repeat testing on a new specimen if clinically indicated. Histoplasma/Blasto myces Ag Value (Serum) Not Detected ng/mL 01/30/2025 12:49 PM EDT [facility] Comment: ADDITIONAL INFORMATION This test was developed and its performance characteristics determined by [facility] [place] [facility] in a manner consistent with CLIA requirements. This test has not been cleared or approved by the U.S. Food and Drug Administration. Test Performed by: [facility] [place] [facility] - [address] [address] Admittance Attendant: Kathy Ortiz Ph.D.; CLIA# [id number] Serum SERUM SPECIMEN / Unknown 01/27/2025 8:20 PM EDT 01/30/2025 12:49 PM EDT Comment:S Shelby Blanco MD LAB BLOOD ORDERABLES Final Resul t [facility] [address] [place] [address], [facility] * Fungitell (01/27/2025 8:20 PM EDT) Fungitell Value <31.25 pg/mL 4:19 PM EDT [facility] Reference Value Comment 4:19 PM EDT [facility] Comment:Negative: <60, Posit bradley: >/=60 Clinical Relevance Notes 2024 4:19 PM EDT [facility] Comment: The Fungitell test is [...] Cryptococcus, which produce very low levels of (1,3)-zvsw-L-mbrsye. This test will not detect the zygomycetes, such as Absidia, Blastomyces, Mucor, and Rhizopus, which are not known to produce (1,3)-fgyz-W-wxrcnv. In addition, the yeast phase of Blastomyces dermatitidis produces little (1,3)-kvqy-Q-gvdapv and may not be detected by the assay. Disclaimer: Notes 02/02/2025 4:19 PM EDT [facility] Comment: This test has been cleared or approved for diagnostic use by the U.S. Food and Drug Administration. Performance characteristics were verified by [employer]. Electronically signed by: Comment 02/02/2025 4:19 PM EDT [facility] Comment:Usha Landin Fungitell Result Comment 02/03/20 4:19 PM EDT [facility] Comment:Negative Interpretation Notes 02/02/2025 4:19 PM EDT [facility] Comment: (1,3) Kuhz-L-Bsvlik was NOT DETECTED in the sample. Reasons for negative results could include the patient being in the early stage of infection before detectable levels of (1,3) Dcwi-P-Jclvya are present. Clinical diagnosis should be made in the context of the patient's complete medical history. Serum 01/27/2025 8:20 PM EDT 02/02/2025 5:07 PM EDT Narrative [facility] - 02/02/2025 5:07 PM EDT PERFORMED AT: [employer] [address] [place], [place] [id number] MEDICAL FILE CLERK: Cyril Porter, PhD PHONE: [phone] Shelby Blanco MD LAB BLOOD ORDERABLES Final Resul t Performing Organization Address City/[facility]/[place] Co de Phone Number [facility] [address] * Katie-Schafer Virus (EBV) PCR (01/27/2025 8:20 PM EDT) [facility] EBV DNA, Quantitative PCR Not Detected IU/mL 01/28/2025 10:54 AM EDT [facility] EBV DNA, Log10 See Note log 10 IU/mL 01/28/2025 10:54 AM EDT [facility] Comment: Beginning September 05, 2022, [facility] has transitioned EBV viral load testing to [...] LAB BLOOD ORDERABLES Final Resul t [facility] [address] * Cryptococcus Ag (01/27/2025 8:20 PM EDT) Crypto Ag, Ser Negative Negative 01/27/2025 11:41 PM EDT [facility] Crypto Ag Titer, Ser Not Applicable 01/27/2025 11:41 PM EDT [facility] Serum SERUM SPECIMEN / Unknown 01/27/2025 8:20 PM EDT 01/27/2025 10:04 PM EDT Comment:S Shelby Blanco MD LAB BLOOD ORDERABLES Final Resul t Performing Organization Address [facility]/[place] Co de Phone Number [facility] [address] [facility] [place] [facility]. [address] * Cytomegalovirus (CMV) PCR (01/27/2025 8:20 PM EDT) CMV DNA Qnt Not Detected IU/mL 01/29/2025 12:09 PM EDT [facility] Comment:Test methodology for CMV DNA quantification is an FDA-approved nucleic acid amplification assay. The Lower Limit of Quantitation (LLOQ) and Limit of Detection (LoD) for EDTA plasma is 34.5 IU/mL. The linear range of the assay is 34.5- 10,000,000 IU/mL. The reference range is Not Detected. Log10 CMV Qn DNA PI See Note log 10 IU/mL 01/29/2025 12:09 PM EDT [facility] Comment:CMV DNA not detected Plasma 01/27/2025 8:20 PM EDT 01/27/2025 9:49 PM EDT Shelby Blanco MD LAB BLOOD ORDERABLES Final Resul t Performing Organization Address City/[facility]/ZIP Co de Phone Number [facility] [address] * Aspergillus Ag (01/27/2025 8:20 PM EDT) Aspergillus Ag. 0.03 0.00 - 0.49 Index 01/30/2025 5:54 PM EDT [facility] Serum SERUM SPECIMEN / Unknown 01/27/2025 8:20 PM EDT 01/31/2025 4:23 AM EDT Comment:S Shelby Blanco MD BODY FLUIDS AND STOOLS ORDERABLE S Final Result Performing Organization Address [facility]/[place] Co de Phone Number [facility] [address] [place] [address] * Adenovirus PCR (01/27/2025 8:20 PM EDT) Adenovirus, Quantitative PCR 0 0 - 0 copies/mL 02/03/2025 1:12 PM EDT [facility] Comment: Testing performed by [facility], [address] [place] [address]. This test(s) was developed and its performance characteristics determined and validated by the Department of Pathology and Laboratory Medicine at [facility]. It has not been cleared or approved [...] ORDERABLES Final Resul t Performing Organization Address [facility]/[place] Co de Phone Number [facility] [address] [facility] [place] [facility]. [address] * Blood culture-Peripheral (Blood) (01/27/2025 8:20 PM EDT) Culture Result No Growth After 5 Days [facility] Blood BLOOD SPECIMEN / Unknown 01/27/2025 8:20 PM EDT 01/27/2025 9:57 PM EDT Pamela JACOME MICROBIOLOGY - GENERAL ORDERAB LES Final Result [facility] [address] [facility]. [address] * Blood culture-Peripheral (Blood) (01/27/2025 8:20 PM EDT) Culture Result No Growth After 5 Days [facility] Blood BLOOD SPECIMEN / Unknown 01/27/2025 8:20 PM EDT 01/27/2025 9:58 PM EDT Pamela JACOME MICROBIOLOGY - GENERAL ORDERAB LES Final Result Performing Organization Address City/[facility]/[place] Co de Phone Number [facility] [address] [facility]. [address] * (ABNORMAL) Lipase (01/27/2025 8:20 PM EDT) Lipase 3(L) 4 - 82 U/L 01/27/2025 9:0 3 PM EDT [facility] Plasma 01/27/2025 8:20 PM EDT 01/27/2025 8:34 PM EDT Pamela JACOME LAB BLOOD ORDERABLES Final Res ult [facility] [address] [facility]. [address] * Hepatic Function Panel (01/27/2025 8:20 PM EDT) Total Bilirubin 0.9 0.0 - 1.5 mg/dL 01/27/2025 9:03 PM EDT [facility] Bilirubin, Direct 0.1 0.0 - 0.4 mg/dL 01/27/2025 9:03 PM EDT [facility] AST 20 13 - 39 U/L 01/27/2025 9:03 PM EDT [facility] ALT 26 7 - 52 U/L 01/27/2025 9:03 PM EDT [facility] Alkaline Phosphatase 55 36 - 125 U/L 01/27/2025 9:03 PM EDT [facility] Total Protein 7.0 6.4 - 8.9 g/dL 01/27/2025 9:03 PM EDT [facility] Albumin 5.0 3.5 - 5.7 g/dL 01/27/2025 9:03 PM EDT [facility] Bilirubin, Indirect 0.8 0.0 - 1.1 mg/dL 01/27/2025 9:03 PM EDT [facility] Plasma 01/27/2025 8:20 PM EDT 01/27/2025 8:34 PM EDT us Pamela JACOME LAB BLOOD ORDERABLES Final Res ult [facility] [address] [facility] [place] [facility]. [address] * (ABNORMAL) Differential (01/27/2025 8:20 PM EDT) Differential Comments See Note 01/27/2025 10:02 PM EDT [facility] Comment: _Platelets Appear Decreased _Platelet Morphology Normal Scan Result PERFORMED 01/27/2025 10:02 PM EDT [facility] Neutrophils Relative 50.9 40.0 - 80.0 % 01/27/2025 10:02 PM EDT [facility] Lymphocytes Relative 39.0 15.0 - 45.0 % 01/27/2025 10:02 PM EDT [facility] Monocytes Relative 7.3 0.0 - 12.0 % 01/27/2025 10:02 PM EDT [facility] Eosinophils Relative 1.3 0.0 - 8.0 % 01/27/2025 10:02 PM EDT [facility] Basophils Relative 1.5(H) 0.0 - 1.0 % 01/27/2025 10:02 PM EDT [facility] nRBC 1(H) 0 - 0 /100 WBC 01/27/2025 10:02 PM EDT [facility] Neutrophils Absolute 1,018(L) 1,520 - 8,640 /uL 01/27/2025 10:02 PM EDT [facility] Lymphocytes Absolute 780 570 - 4,860 /uL 01/27/2025 10:02 PM EDT [facility] Monocytes Absolute 146 0 - 1,296 /uL 01/27/2025 10:02 PM EDT [facility] Eosinophils Absolute 26 0 - 864 /uL 01/27/2025 10:02 PM EDT [facility] Basophils Absolute 30 0 - 108 /uL 01/27/2025 10:02 PM EDT [facility] PLT Morphology Platelet morphology appears normal 01/27/2025 10:02 PM EDT [facility] Whole Blood 01/27/2025 8:20 PM EDT 01/27/2025 8:57 PM EDT us Pamela JACOME LAB BLOOD ORDERABLES Final Res ult [facility] [address] [facility] [place] [facility] [place] [address], [facility] * (ABNORMAL) CBC (01/27/2025 8:20 PM EDT) WBC 2.0(L) 3.8 - 10.8 10E3/uL 01/27/2025 10:02 PM EDT [facility] RBC 3.81(L) 4.20 - 5.80 10E6/uL 01/27/2025 10:02 PM EDT [facility] Hemoglobin 12.7(L) 13.2 - 17.1 g/dL 01/27/2025 10:02 PM EDT [facility] Hematocrit 35.1(L) 38.5 - 50.0 % 01/27/2025 10:02 PM EDT [facility] MCV 92.2 80.0 - 100.0 fL 01/27/2025 10:02 PM EDT [facility] MCH 33.3(H) 27.0 - 33.0 pg 01/27/2025 10:02 PM EDT [facility] MCHC 36.1(H) 32.0 - 36.0 g/dL 01/27/2025 10:02 PM EDT [facility] RDW 14.7 11.0 - 15.0 % 01/27/2025 10:02 PM EDT [facility] Platelets 109(L) 140 - 400 10E3/uL 01/27/2025 10:02 PM EDT [facility] Platelet Estimate Decreased 01/27/2025 10:02 PM EDT [facility] MPV 6.4(L) 7.5 - 11.5 fL 01/27/2025 10:02 PM EDT [facility] Whole Blood 01/27/2025 8:20 PM EDT 01/27/2025 8:57 PM EDT [facility] - 01/27/2025 10:02 PM EDT Peripheral blood smear was scanned per review criteria approved by the laboratory vice president medical affairs. Pamela Wiggins [facility] LAB BLOOD ORDERABLES Final Res ult [facility] [address] * Hemoglobin A1c (01/27/2025 8:20 PM EDT) Hemoglobin A1C 4.0 4.0 - 5.6 % 01/27/2025 11:49 PM EDT [facility] Comment: Hemoglobin A1c Interpretation Guidelines: [...] 8:20 PM EDT 01/27/2025 8:57 PM EDT [facility] - 01/27/2025 11:49 PM EDT A1C project?->Yes Pamela [employer] LAB BLOOD ORDERABLES Final Res ult [facility] [address] [facility] [place] [facility]. [address] * Basic metabolic panel (01/27/2025 8:20 PM EDT) Sodium 136 133 - 146 mmol/L 01/27/2025 9:03 PM EDT [facility] Potassium 4.0 3.5 - 5.3 mmol/L 01/27/2025 9:03 PM EDT [facility] Chloride 100 98 - 110 mmol/L 01/27/2025 9:03 PM EDT [facility] CO2 25 21 - 33 mmol/L 01/27/2025 9:03 PM EDT [facility] Anion Gap 11 3 - 16 mmol/L 01/27/2025 9:03 PM EDT [facility] BUN 16 7 - 25 mg/dL 01/27/2025 9:03 PM EDT [facility] Creatinine 1.02 0.60 - 1.30 mg/dL 01/27/2025 9:03 PM EDT [facility] Glucose 93 70 - 100 mg/dL 01/27/2025 9:03 PM EDT [facility] Calcium 9.7 8.6 - 10.3 mg/dL 01/27/2025 9:03 PM EDT [facility] Osmolality, Calculated 283 278 - 305 mOsm/kg 01/27/2025 9:03 PM EDT [facility] EGFR >90 01/27/2025 9:03 PM EDT [facility] Comment: As of 2021, the [...] EDT 01/27/2025 8:34 PM EDT us Pamela JACOME LAB BLOOD ORDERABLES Final Res ult [facility] [address] [place] [address], [facility] * X-ray Chest PA and Lateral (01/27/2025 [...] English MD at 01/27/2025 7:13 PM EDT us Pamela JACOME IMG DIAGNOSTIC IMAGING ORDERAB LES Final Result documented in this encounter Visit Diagnoses Diagnosis Diarrhea of presumed infectious origin- Primary Immunosuppression ([facility]) documented in this encounter Administered Medications Inactive [...] Sun01/28/25 at 1100, For 1 dose New Bag 01/28/2025 12:29 PM EDT 4 g 25 mL/hr magnesium sulfate in sterile water 100 mL IVPB 4 g 4 g, Intravenous, at 25 mL/hr, Once, On Sun01/28/25 at 1500, For 1 dose New Bag 01/28/2025 5:17 PM EDT 4 g 25 [...] at 1554) 0907 (Given - Provider: Gladis Tello RN)1528 (Given - Provider: Gladis Tello, ЮЛИЯ)2352 (Given - Provider: Vandana Vilchis RN) 0933 (Given - Provider: Elba Vargas RN)1235 (Given - Provider: Elba Vargas RN) famotidine (PEPCID) tablet 20 mg 20 mg, Oral, 2 times daily, First dose on Sun01/27/25 at 2329 0002 (Given - Provider: Marixa Mock RN)0824 (Given - Provider: Mery Sullivan RN)2039 (Given - Provider: Darrius Hahn RN) 0907 (Given - Provider: Gladis Tello, ЮЛИЯ)1957 (Given - Provider: Darrius Hahn RN) 0933 (Given - Provider: Elba Vargas RN) fidaxomicin (DIFICID) tablet 200 mg 200 mg, Oral, 2 times daily, First dose on Sun01/29/25 at 0030, May administer with or without food. 0125 (Given - Provider: Vandana Vilchis RN)0907 (Given - Provider: Gladis Tello RN)1957 (Given - Provider: Darrius Hahn RN) 0933 [...] Sullivan RN)1229 (Given - Provider: Mery Sullivan RN)2039 (Given - Provider: Darrius Hahn RN) 0907 (Given - Provider: Gladis Tello, ЮЛИЯ)1528 [...] Provider: Mery Sullivan RN - Reason: Patient/family refused)204 (Not Given - Provider: Darrius Hahn RN - Reason: Patient/family refused - Comment: Pt refused.) 0452 (Not Given - Provider: Vandana Vilchis RN - Reason: Patient/family refused - Comment: Pt refused)1300 (Not Given - Provider: Gladis Tello RN - Reason: Patient/family refused)2024 (Not Given - Provider: Vandana Vilchis RN [...] (Patch Removed - Provider: Darrius Hahn RN) 0909 (Not Given - Provider: Gladis Tello RN [...] at 1554) 0907 (Given - Provider: Gladis Tello RN)1528 [...] Marixa Mock RN)0822 (Stopped - Provider: Mery Sullivan RN) electrolyte-R (pH 7.4) (NORMOSOL-R pH 7.4) IV solution (CANCELED) 75 mL/hr, Intravenous, Continuous, Starting on Sun01/29/25 at 1230 1532 (New Bag - Provider: Gladis Tello, RN) 0036 (New Bag - Provider: Vandana Vilchis, ЮЛИЯ) electrolyte-R (pH 7.4) (NORMOSOL-R pH 7.4) IV solution () 999 mL/hr, Intravenous, Continuous, Starting on Sun01/29/25 at 1400, For 1 hour 1533 (New Bag - Provider: Gladis Tello, ЮЛИЯ) PRN Medication Order 01/28/2025 01/29/2025 01/30/2025 acetaminophen (TYLENOL) tablet 975 mg 975 mg, Oral, Every 8 hours PRN, mild pain (NRS 1-3); no comparable CPOT score, Starting on Sun01/27/25 at 2326, Maximum dose of acetaminophen is 4000 mg (4 grams) from all sources in 24 hours. 0823 (Given - Provider: Mery Sullivan RN)1603 (Given - Provider: Mery Sullivan RN) 0125 (Given - Provider: Vandana Vilchis, ЮЛИЯ)1529 (Given - Provider: Gladis Tello, ЮЛИЯ)2352 (Given - Provider: Vandana Vilchis, ЮЛИЯ) OMNIPAQUE (iohexol) 350 mg iodine/mL 150 mL (COMPLETED) 150 mL, Intravenous, IMG once as needed, contrast, Starting on Sun01/29/25 at 1428, For 1 dose 1359 (Given - Provider: Ashley Velasquez, RT) Linked Groups Order Group 1: magnesium [...] Sun01/29/25 at 1900, LEVEL 2 HAZARDOUS MEDICATION documented [...] as of this encounter Care Teams Manager Corporate Communications Relationship Specialty Start Date End Date Enedina Mcguire NP [address] [place] [address] PCP - General Internal Medicine 10/05/24 Maureen Pantoja, RN Txp Post Coordinator Transplant Hepatology 10/28/24 documented as of this encounter
--- OUTSIDE RECORDS SUMMARY | 2025-02-10 09:27 | XMS_ITS | Encounter Summary ---
Author Organization [facility] Address [address] [place] [address] Care Team Providers Care Junior Linux Administrator Name Role Phone Enedina Mcguire NP Primary Care Provider + [phone] Maureen Pantoja RN Unavailable Unavail able Source [...] release of HIV test results or diagnoses. [id number] Reason for Visit * Reason Comments Critical Lab Results Encounter Details Date Type Department Care Team (Late st Contact Info) Description 01/05/2025 Telephone [facility] Liver Transplant at [address] [place] [phone] Marisela Martinez MA Critical Lab Results [...] In the past 12 months has e [employer], gas, oil, or water [employer] threatened to shut off services in [...] - 01/05/2025 11:15 AM EDT Lizeth from [facility] Lab called to report a critical [...] documented as of this encounter Care Teams Junior Linux Administrator Relationship Specialty Start Date End Date Enedina Mcguire NP [address] [place] [address] PCP - General Internal Medicine 10/05/24 Maureen Pantoja, ЮЛИЯ Txp Post Coordinator Transplant Hepatology 10/28/24 documented as of this encounter
--- OUTSIDE RECORDS SUMMARY | 2025-02-10 09:27 | XMS_ITS | Encounter Summary ---
Author Organization [facility] Address [address] [place] [address] Care Team Providers Care Housing Officer Name Role Phone Enedina Mcguire NP Primary Care Provider + [phone] Maureen Pantoja RN Unavailable Unavail able Source [...] release of HIV test results or diagnoses. [id number] Health Encounter Details Date Type Department Care Team (Late st Contact Info) Description 01/09/2025 Chart Note [facility] Liver Transplant at [address] [place] [phone] Marlene Ro MA 01/09 Labs entered from [facility] Social History Tobacco Use Types [...] In the past 12 months has [employer], gas, oil, or water [employer] threatened to shut off services in [...] 2:24 PM EDT 01/09 Labs entered from [facility] documented in this encounter Plan of [...] Magnesium 1.3(A) 1.6 - 2.4 mg/dL Plasma [facility] Provider MD LAB BLOOD ORDERABLES [...] 1.8 10^3/mL Blood Narrative Resulting Agency Comment [facility] LAB BLOOD ORDERABLES Denisse l Result * (ABNORMAL) Renal Function Panel w/o EGFR (01/09/2025 12:23 PM EDT) Glucose 108 BUN 20 CO2 23(A) 13 - 22 mmol/L Creatinine 0.90 Potassium 4.3 Sodium 138 Chloride 107 Phosphorus 4.4 2.5 - 4.9 mg/dL Calcium 10.1 EGFR 93 mg/dL Albumin 5.0 3.5 - 5.0 g/dL Blood Narrative Resulting Agency Comment [facility] LAB BLOOD ORDERABLES Denisse l Result * Creatinine, urine, random (01/09/2025 12:23 PM EDT) Creatinine, Urine 66 Urine Narrative Resulting Agency Comment [facility] Result [facility] Provider URINE ORDERABLES Final Re sult * Urinalysis w/Rfl to Microscopic (01/09/2025 12:23 PM EDT) Glucose, UA Negative Negative Ketones, UA Negative Negative Blood, UA Negative Negative Bilirubin, UA Negative Negative Urobilinogen, UA Normal Normal Protein, UA Negative Negative Leukocyte Esterase, UA Negative Negative pH, UA 6.0 4.5 - 8.0 Specific [place], UA 1.020 1.005 - 1.030 Clarity, UA Clear Clear Color, UA Yellow Light Yellow, Yellow Urine Narrative Resulting Agency Comment [facility] Result [facility] Provider URINE ORDERABLES Final Re sult * Urine Protein, Tot, Random (w/o Creat) (01/09/2025 12:23 PM EDT) Total Protein, Ur 15.0 Urine Narrative Resulting Agency Comment [facility] Result [facility] Provider URINE ORDERABLES Final Re sult * Hepatic Function Panel (01/09/2025 12:23 PM EDT) Bilirubin, Direct 0.4 Bilirubin, Indirect 0.6 Alkaline Phosphatase 57 ALT 13 AST 22 Total Bilirubin 1.0 Total Protein 7.3 Plasma Narrative Resulting Agency Comment [facility] Result [facility] Provider LAB BLOOD ORDERABLES Denisse l Result * Urine culture (01/06/2025 12:23 PM EDT) Urine Culture, Comprehensive no growth URINE SPECIMEN / Unknown Result [facility] Provider MICROBIOLOGY - GENERAL OR DERABLES [...] as of this encounter Care Teams Housing Officer Relationship Specialty Start Date End Date Enedina Mcguire NP [address] [place] [address] PCP - General Internal Medicine 10/05/24 Maureen Pantoja, RN Txp Post Coordinator Transplant Hepatology 10/28/24 documented as of this encounter
--- OUTSIDE RECORDS SUMMARY | 2025-02-10 09:27 | XMS_ITS | Encounter Summary ---
Author Organization [facility] Address [address] [place] [address] Care Team Providers Care Legal Support Specialist Name Role Phone Enedina Mcguire NP Primary Care Provider + [phone] Maureen Pantoja RN Unavailable Unavail able Source [...] release of HIV test results or diagnoses. [id number] Health Encounter Details Date Type Department Care Team (Late st Contact Info) Description 01/05/2025 Chart Note [facility] Liver Transplant at [address] [place] [phone] Marlene Ro MA 01/05 Labs entered from [facility] [...] In the past 12 months has e [employer], gas, oil, or water [employer] threatened to shut off services in your [...] were not included. 01/05 Labs entered from [facility] documented in this encounter Plan of [...] Virus Quant PCR PL Negative Plasma Result [facility] LAB BLOOD ORDERABLES Denisse l Result * Urine culture (01/05/2025 9:27 AM EDT) Pathologist [facility] [place] Urine Culture, Comprehensive no growth URINE SPECIMEN / Unknown Result [facility] MICROBIOLOGY - GENERAL OR DERABLES Final Result * (ABNORMAL) Magnesium (01/05/2025 9:27 AM EDT) [facility] Magnesium 1.0(A) 1.6 - 2.4 mg/dL Plasma Narrative Resulting Agency Comment Kev Downey Result [facility] LAB BLOOD ORDERABLES Ednisse l Result * (ABNORMAL) Renal Function Panel w/o EGFR (01/05/2025 9:27 AM EDT) [facility] Glucose 98 BUN 19 CO2 29(A) 13 - 22 mmol/L Creatinine 1.10 Potassium 4.0 Sodium 140 Chloride 101 Phosphorus 5.4(A) 2.5 - 4.9 mg/dL Calcium 9.7 EGFR 89 mg/dL Albumin 4.8 3.5 - 5.0 g/dL Blood Narrative Resulting Agency Comment Kev Downey Result [facility] LAB BLOOD ORDERABLES Denisse l Result * Creatinine, urine, random (01/05/2025 9:27 AM EDT) Pathologist [facility] [place] Creatinine, Urine 80 Urine Narrative Resulting Agency Comment [facility] Result [facility] URINE ORDERABLES Final Re sult * Urinalysis w/Rfl to Microscopic (01/05/2025 9:27 AM EDT) Pathologist [facility] [place] Glucose, UA Negative Negative Ketones, UA Negative Negative Blood, UA Negative Negative Bilirubin, UA Negative Negative Urobilinogen, UA Normal Normal Protein, UA Negative Negative Nitrite, UA Negative Negative pH, UA 6.0 4.5 - 8.0 Specific [place], UA 1.015 1.005 - 1.030 Clarity, UA Clear Clear Color, UA Yellow Light Yellow, Yellow Urine Narrative Resulting Agency Comment [facility] Result [facility] Provider URINE ORDERABLES Final Re sult * (ABNORMAL) CBC and differential (01/05/2025 9:27 AM EDT) [facility] Hemoglobin 11.9(A) 13.5 - 17.5 g/dL Hematocrit [...] 10^3/mL Blood Narrative Resulting Agency Comment [facility] Result [facility] Provider LAB BLOOD ORDERABLES Denisse l Result * Urine Protein, Tot, Random (w/o Creat) (01/05/2025 9:27 AM EDT) [facility] Total Protein, Ur 21.0 Urine Narrative Resulting Agency Comment [facility] Result [facility] Provider URINE ORDERABLES Final Re sult [...] as of this encounter Care Teams Legal Support Specialist Relationship Specialty Start Date End Date Enedina Mcguire NP [address] [place] [address] PCP - General Internal Medicine 10/05/24 Maureen Pantoja, RN Txp Post Coordinator Transplant Hepatology 10/28/24 documented as of this encounter
--- OUTSIDE RECORDS SUMMARY | 2025-02-10 09:27 | XMS_ITS | Encounter Summary ---
Author Organization [facility] Address [address] [place] [address] Care Team Providers Care Laborer Turkey Farm Name Role Phone Enedina Mcguire NP Primary Care Provider + [phone] Maureen Pantoja RN Unavailable Unavail able Source [...] release of HIV test results or diagnoses. [id number] Reason for Visit * Reason Comments Results Encounter Details Date Type Department Care Team (Riky st Contact Info) Description 01/09/2025 Telephone [facility] Liver Transplant at [address] [address] Marisela Matrinez MA Results Social History Tobacco Use Types [...] In the past 12 months has e [employer], gas, oil, or water [employer] threatened to shut off services in [...] results so Txp MA can enter into [employer] and RN Txp Coordinator can review. Patient [...] documented as of this encounter Care Teams Laborer Turkey Farm Relationship Specialty Start Date End Date Enedina Mcguire NP [address] [place] [address] PCP - General Internal Medicine 10/05/24 Maureen Pantoja, RN Txp Post Coordinator Transplant Hepatology 10/28/24 documented as of this encounter
--- OUTSIDE RECORDS SUMMARY | 2025-02-10 09:28 | XMS_ITS | Encounter Summary ---
Author Organization [facility] Address [address] [place] [address] Care Team Providers Care Soaker Name Role Phone Enedina Mcguire APRN Primary Care Provider + Encounter Details Date Type Department Care Team ([facility] st Contact Info) Description 10/07/2024 Results Follow-Up [facility] INTERNAL MEDICINE [address] [place] [address] Enedina Mcguire APRN [address] [place], [place] [id number] Social History Tobacco Use Types Packs/Day Years Used Date Smoking Tobacco: Former Cigarettes 4 20 Passive Smoke Exposure: Past Smokeless Tobacco: Current Comments:MARIJUANA USE ABOUT 2X PER WEEK - reports no use 08-05-2024 Alcohol Use Standard Drinks/Week Comments Not Currently 0 (1 standard drink = 0.6 oz pure alcohol) 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 [facility] Utilities Answer Date Recorded In the past 12 months has [employer], [employer], oil, or water [employer] threatened to shut off services in your [...] EST Office Visit [facility] PAIN MANAGEMENT [address] [address] Vazquez Christie PA-C [address] [place] [address] documented as of this encounter Visit Diagnoses Not on filedocumented in this encounter Additional Health Concerns Assessment Noted Time PHQ-2 Depression Total Score: 1 12/31/19 24 3:25 PM EDT documented as of this encounter Care Teams Soaker Relationship Specialty Start Date End Date Enedina Mcguire APRN [address] [place] [address] PCP - General Nurse Practitioner 10/27/24 documented as of this encounter
--- OUTSIDE RECORDS SUMMARY | 2025-02-10 09:28 | XMS_ITS | Encounter Summary ---
Author Organization [facility] Address [address] [place] [address] Care Team Providers Care Music Department Chair Name Role Phone Enedina Mcguire APRN Primary Care Provider + Reason for Visit * Reason Comments Med Refill Encounter Details Date Type Department Care Team (Late st Contact Info) Description 07/20/[address] [facility] GASTROENTEROLOGY [address] [facility] [address] [place] [address] Lj Tapia APRN [address] [place] [address] Secondary esophageal varices without bleeding Social History [...] or training? Not on file Preferred Language Belizean 07/03/2022 Sex and Gender Information Value Date Recorded Sex Assigned at Male 08/20/2024 8:28 PM EDT Legal Sex Male 7:45 AM EDT Gender Identity Not on file Sexual Orientation Not on file documented as of this encounter Plan of Treatment Upcoming Encounters Date Type Department Care Team (Late st Contact Info) Description 04/02/2025 2:15 PM EST Office Visit [facility] PAIN MANAGEMENT [address] [address] Vazquez Christie PA-C [address] [place] [address] documented as of this encounter Visit Diagnoses Diagnosis Secondary esophageal varices without bleeding documented in this encounter Additional Health Concerns Infection Onset Date Last Indicated Resolved Time COVID Screen (preop/placement) 07/28/2022 07/28/2022 07/29/2022 12:00 AM EDT documented as of this encounter Care Teams Music Department Chair Relationship Specialty Start Date End Date Enedina Mcguire APRN [address] [place] [address] PCP - General Nurse Practitioner 10/27/24 documented as of this encounter
--- OUTSIDE RECORDS SUMMARY | 2025-02-10 09:28 | XMS_ITS | Encounter Summary ---
Author Organization [facility] Address [address] [place] [address] Care Team Providers Care Pump House Engineer Name Role Phone Enedina Mcguire NP Primary Care Provider + [phone] Maureen Pantoja RN Unavailable Unavail able Source [...] release of HIV test results or diagnoses. [id number] Reason for Visit * Reason Comments Results Encounter Details Date Type Department Care Team (Riky st Contact Info) Description 01/08/2025 Telephone [facility] Liver Transplant at [address] [address] Maureen Pantoja, RN Results Social [...] In the past 12 months has e [employer], gas, oil, or water [employer] threatened to shut off services in your [...] as of this encounter Care Teams Pump House Engineer Relationship Specialty Start Date End Date Enedina Mcguire NP [address] [place] [address] PCP - General Internal Medicine 10/05/24 Maureen Pantoja RN Txp Post Coordinator Transplant Hepatology 10/28/24 documented as of this encounter
--- OUTSIDE RECORDS SUMMARY | 2025-02-10 09:29 | XMS_ITS | Clinical Summary ---
Author Organization [facility] Address [address] [place] [address] Care Team Providers Care Supervisor Framing Mill Name Role Phone Enedina Mcguire APRN Primary [...] Type Department Care Team Description 01/08/2025 Telephone [facility] PAIN MANAGEMENT [address] [facility] [address] [place] [phone] Vazquez Christie PA-C Appointment 01/01/2025 2:15 PM EDT Office Visit [facility] PAIN MANAGEMENT [address] [facility] [address] [place] [address] Vazquez Christie PA-C Cervical radiculopathy (Primary Dx); Long-term use of high-risk medication; Cervical spondylosis without myelopathy; Cervical pain (neck); Therapeutic drug monitoring; Chronic pain syndrome 01/01/2025 Travel 12/12/2024 Refill [facility] INTERNAL MEDICINE [address] [place] [address] Enedina Mcguire APRN Acquired hypothyroidism; Secondary esophageal varices without bleeding 12/05/2024 Telephone [facility] PAIN MANAGEMENT [address] [place] [address] Vazquez Christie PA-C 12/04/2024 2:55 PM EDT Lab [facility] [place] [address] [facility] [place] [address] [place] [address] Therapeutic drug monitoring 12/04/2024 2:15 PM EDT Office Visit [facility] PAIN MANAGEMENT [address] [facility] [place] [address] [place] [address] Vazquez Christie PA-C Cervical radiculopathy [...] alcohol) 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 [facility] Utilities Answer Date Recorded In [...] Brief Depression Severity Measure Score 0 10/02/2022 [facility] Occup[facility] ional [facility] - Occupational Stress Questionnaire Answer [...] GED or equivalent No 07/09/2024 Preferred Language Ethiopian 07/09/2024 PHQ-2 Answer Date Recorded Patient Health [...] Description 04/02/2025 2:15 PM EST Office Visit [facility] PAIN [facility]GEMENT [address] [facility] [address] [place] [address] Vazquez Christie PA-C [address] [facility] [address] [place] [address] Health Maintenance Due Date Last [...] 0-49 Discontinued Medical Devices Implanted Type Area Multicut Line Operator Device Identifier Shelf Expiration Date Model / Serial / Lot Coil Concerto Pgla Hel Detach Sys 10mm 30cm - [id number] Implanted:Qty: 1 on 07/03/2022 by Timmy Brunner MD at [facility] Implant Left: Vein EV3 A [employer] [id number] / / [id number] Description:Coil is in the s hort gastric vein Coil Concerto Nyl [place] Detach Sys 10mm 30cm - [id number] Implanted:Qty: 1 on 07/03/2022 by Timmy Brunner MD at [facility] Implant Left: Vein EV3 A [employer] [id number] / / [id number] Description:Short gastric ve in Coil Concerto Nyl [place] Detach Sys 10mm 30cm - [id number] Implanted:Qty: 1 on 07/03/2022 by Timmy Brunner MD at [facility] Implant Left: Vein EV3 A [employer] [id number] / / [id number] Description:Short gasrtic ve in Coil Concerto Nyl [place] Detach Sys 10mm 30cm - [id number] Implanted:Qty: 1 on 07/03/2022 by Timmy Brunner MD at [facility] Implant Left: Vein EV3 A [employer] [id number] / / [id number] Description:Short gastric ve in Coil Concerto Nyl [place] Detach Sys 8mm 30cm - [id number] Implanted:Qty: 1 on 07/03/2022 by Timmy Brunner MD at [facility] Implant Left: Vein EV3 A [employer] [id number] / / [id number] Description:Short gastric ve in Coil Concerto Nyl [place] Detach Sys 8mm 30cm - [id number] Implanted:Qty: 1 on 07/03/2022 by Timmy Brunner MD at [facility] Implant Left: Vein EV3 A [employer] [id number] / / [id number] Description:Short gastric ve in Sys Del Liq Emb Trufill Nbca 1g Vl - [id number] Implanted:Qty: 1 on 07/03/2022 by Timmy Brunner MD at [facility] Implant Left: Vein [facility] [id number] / / [id number] Description:Short gastric ve in Plug Vasc Anton Emb Ampltz .027 6zp8n37un - [id number] Implanted:Qty: 1 on 07/03/2022 by Timmy Brunner MD at [facility] Implant Left: Vein [employer] [id number] / / [id number] Description:Coronary vein Coil Concerto Nyl [place] Detach Sys 8mm 30cm - [id number] Implanted:Qty: 1 on 07/03/2022 by Timmy Brunner MD at [facility] Implant Left: Vein EV3 A [employer] [id number] / / [id number] Description:CORONARY VEIN Gelatin Emb Embocube 5.02mm 50mg Red - [id number] Implanted:Qty: 1 on 07/03/2022 by Timmy Brunner MD at [facility] Implant Left: Vein [employer] [id number] / / [id number] Description:SHORT GASTRIC VE IN Coil Emb Dona 3.7/Lp .035in 14cm 12mm - [id number] Implanted:Qty: 1 on 07/03/2022 by Timmy Brunner MD at [facility] Implant Left: Vein [employer] [id number] / / [id number] Description:SHORT GASTRIC VE IN Coil Concerto Pgla Spring [place] Detach Sys 12mm 30cm - [id number] Implanted:Qty: 1 on 07/03/2022 by Timmy Brunner MD at [facility] Implant Left: Vein EV3 A [employer] [id number] / / [id number] Description:Short gastric ve in Coil Concerto Nyl Spring [place] Detach Sys 8mm 30cm - [id number] Implanted:Qty: 1 on 07/03/2022 by Timmy Brunner MD at [facility] Implant Left: Vein EV3 A [employer] [id number] / / [id number] Description:SHORT GASTRIC VE IN Coil Concerto Nyl [place] Detach Sys 8mm 30cm - [id number] Implanted:Qty: 1 on 07/03/2022 by Timmy Brunner MD at [facility] Implant Left: Vein EV3 A [employer] [id number] / / [id number] Description:Short gastric ve in Coil Concerto Nyl [place] Detach Sys 8mm 30cm - [id number] Implanted:Qty: 1 on 07/03/2022 by Timmy Brunner MD at [facility] Implant Left: Vein EV3 A [employer] [id number] / / [id number] Description:Short gastric ve in Coil Concerto Pgla Hel Detach Sys 14mm 40cm - [id number] Implanted:Qty: 1 on 07/03/2022 by Timmy Brunner MD at [facility] Implant Left: Vein EV3 A [employer] [id number] / / [id number] Description:Short gastric ve in Coil Concerto Pgla Hel Detach Sys 14mm 40cm - [id number] Implanted:Qty: 1 on 07/03/2022 by Timmy Brunner MD at [facility] Implant Left: Vein EV3 A [employer] [id number] / / [id number] Description:Short gastric ve in Coil Concerto Pgla [place] Detach Sys 14mm 30cm - [id number] Implanted:Qty: 1 on 07/03/2022 by Timmy Brunner MD at [facility] Implant Left: Vein EV3 A [employer] [id number] / / [id number] Description:Short gastric ve in Coil Concerto Pgla [place] Detach Sys 14mm 30cm - [id number] Implanted:Qty: 1 on 07/03/2022 by Timmy Brunner MD at [facility] Implant Left: Vein EV3 A [employer] [id number] / / [id number] Description:Short gastric ve in Coil Concerto Pgla [place] Detach Sys 14mm 30cm - [id number] Implanted:Qty: 1 on 07/03/2022 by Timmy Brunner MD at [facility] Implant Left: Vein EV3 A [employer] [id number] / / [id number] Description:Short gastric ve in Procedures Procedure Name [...] - LABS 11/13/2024 SCANNED - LABS 11/13/2024 HEPATITIS PANEL, ACUTE Add-On 07/08/2024 10:33 PM EST LIPID PANEL Routine 10/15/2023 4:16 PM EDT Mixed hyperlipidemia from Last 3 Months or Most Recently Relevant to Health Maintenance Results * LABS SCANNED (12/08/2024) Only the most recent of15 resultswithin the time period is included. us Enedina Mcguire APRN LAB BLOOD ORDERABLES [facility] al Result * (ABNORMAL) Urine Drug Screen - Urine, Clean Catch (12/04/2024 2:50 PM EDT) THC, Screen, Urine Positive(A) Negative 12/04 8:32 PM EDT [facility] Phencyclidine (PCP), Urine Negative Negative 12/04/2024 8:32 PM EDT [facility] Cocaine Screen, Urine Negative Negative 12/04/2024 8:32 PM EDT [facility] Methamphetamine, Ur Negative Negative 12/04/2024 8:32 PM EDT [facility] Opiate Screen Positive(A) Negative 12/04/2024 8:32 PM EDT [facility] Amphetamine Screen, Urine Negative Negative 12/04/2024 8:32 PM EDT [facility] Benzodiazepine Screen, Urine Negative Negative 12/04/2024 8:32 PM EDT [facility] Tricyclic Antidepressants Screen Negative Negative 12/04/2024 8:32 PM EDT [facility] Methadone Screen, Urine Negative Negative 12/04/2024 8:32 PM EDT [facility] Barbiturates Screen, Urine Negative Negative 12/04/2024 8:32 PM EDT [facility] Oxycodone Screen, Urine Negative Negative 12/04/2024 8:32 PM EDT [facility] Buprenorphine, Screen, Urine Negative Negative 12/04/2024 8:32 PM EDT [facility] Urine Urine specimen obtained [...] Christie PA-C URINE ORDERABLES Final R esult [facility]
[address] [place] [address], * Fentanyl, Urine - Urine, Clean Catch (12/04/2024 2:50 PM EDT) Fentanyl, Urine Negative Negative 12/04/2024 9:15 PM EDT [facility] Urine Urine specimen obtained by clean catch procedure / Unknown Collection / Unknown 12/04/2024 2:50 PM EDT 12/04/2024 2:54 PM EDT [facility] - 12/04/2024 9:15 PM EDT [...] particularly when unconfirmed results are used. us [place] Otilio Christie PA-C URINE ORDERABLES Final R esult [facility]
[address] [place] [address], * (ABNORMAL) Lipid Panel (10/15/2023 4:16 PM EDT) Total Cholesterol 234(H) 0 - 200 mg/dL 10/16/2023 2:33 AM EDT [facility] Triglycerides 203(H) 0 - 150 mg/dL 10/16/2023 2:33 AM EDT [facility] HDL Cholesterol 41 40 - 60 mg/dL 10/16/2023 2:33 AM EDT [facility] LDL Cholesterol 156(H) 0 - 100 mg/dL 10/16/2023 2:33 AM EDT [facility] VLDL Cholesterol 37 5 - 40 mg/dL 10/16/2023 2:33 AM EDT [facility] LDL/HDL Ratio 3.72 10/16/2023 2:33 AM EDT [facility] Blood Venipuncture / Unknown 10/15/2023 4:16 PM EDT 10/15/2023 4:16 PM EDT Narrative [facility] - 10/16/2023 2:33 AM EDT [...] mg/dL Very High >189 mg/dL Enedina Mcguire TRAFFIC INSPECTOR LAB BLOOD ORDERABLES Fin al Result [facility]
[address] [place] [address], from Last 3 Months or Most Recently [...] Of Support Discussed With: Patient Care Teams Supervisor Framing Mill Relationship Specialty Start Date End Date Enedina Mcguire APRN [address] [place] [address] PCP - General Nurse Practitioner 10/27/24
--- OUTSIDE RECORDS SUMMARY | 2025-02-10 09:29 | XMS_ITS | Encounter Summary ---
Author Organization Healthcare Address [address] [place] [address] Care Team Providers Care Stage Technician Name Role Phone Jony Conde MD Primary Care Provider [phone] Lj Tapia SLASHER RUNNER Unavailable [phone] Enedina Mcguire SLASHER RUNNER Primary Care Provider + Nuria Fall LINING MACHINE OPERATOR Unavailable Unavaila ble Encounter Details Date Type Department Care Team (Late st Contact Info) Description 07/03/2022 Orders Only External Location [address] [place] [address] Presley Montes De Oca MD [address] [place] [id number] Social History Tobacco Use Types Packs/Day Years [...] on filedocumented in this encounter Care Teams Stage Technician Relationship Specialty Start Date End Date Jony Conde MD [address] [place] [address] [address] [place] [address] PCP - General 07/18/22 12/03/22 Enedina Mcguire APRN [address] [place] [address] PCP - General 12/04/22 Lj Tapia APRN [facility] [place], [place] [id number] Referring Physician Gastroenterology 07/18/22 Nuria Fall LPN [facility] TCM Nurse 07/24/24 08/23/24 documented as of this encounter
--- OUTSIDE RECORDS SUMMARY | 2025-02-10 09:29 | XMS_ITS | Encounter Summary ---
Author Organization [facility] Address [address] [place] [address] Care Team Providers Care Inspector Production Plastic Parts Name Role Phone Enedina Mcguire NP Primary Care Provider + [phone] Maureen Pantoja RN Unavailable Unavail able Source [...] release of HIV test results or diagnoses. [id number] Reason for Visit * Reason Onset Date Comments Medication Refill 01/21/2025 Encounter Details Date Type Department Care Team (Late st Contact Info) Description 01/21/2025 Refill [facility] Liver Transplant at [address] [address] Harvey Domínguez III, MD [address] [place] [address] Encounter for therapeutic drug monitoring; S/P liver transplant ([facility]); Hypomagnesemia; Kidney transplant recipient; Hypertension, [...] the past 12 months has th e [employer], gas, oil, or water company threatened to [...] as of this encounter Care Teams Inspector Production Plastic Parts Relationship Specialty Start Date End Date Enedina Mcguire NP [address] [place] [address] PCP - General Internal Medicine 10/05/24 Maureen Pantoja, RN Txp Post Coordinator Transplant Hepatology 10/28/24 documented as of this encounter
--- OUTSIDE RECORDS SUMMARY | 2025-02-10 09:29 | XMS_ITS | Encounter Summary ---
Author Organization Healthcare Address [address] [place] [address] Care Team Providers Care Soaping Department Supervisor Name Role Phone Jony Conde MD Primary Care Provider [phone] Lj Tapia CONCRETE PAVEMENT INSTALLER Unavailable [phone] Enedina Mcguire CONCRETE PAVEMENT INSTALLER Primary Care Provider + Nuria Fall PATIENT SUPPORT ASSOCIATE Unavailable Unavaila ble Encounter Details Date Type Department Care Team (Late st Contact Info) Description 07/04/2022 Orders Only External Location [address] [place] [address] Presley Montes De Oca MD [address] [place] [id number] Social History Tobacco Use Types Packs/Day Years [...] on filedocumented in this encounter Care Teams Soaping Department Supervisor Relationship Specialty Start Date End Date Jony Conde MD [address] [facility] [address] [place] [address] PCP - General 07/18/22 12/03/22 Enedina Mcguire APRN [address] [place] [address] PCP - General 12/04/22 Lj Tapia APRN [address] [place] [address] Referring Physician Gastroenterology 07/18/22 Nuria Fall LPN [facility] TCM Nurse 07/24/24 08/23/24 documented as of this encounter
--- OUTSIDE RECORDS SUMMARY | 2025-02-10 09:29 | XMS_ITS | Encounter Summary ---
Author Organization [facility] Address [address] [place] [address] Care Team Providers Care Social Sciences Chair Name Role Phone Enedina Mcguire NP Primary Care Provider + [phone] Maureen Pantoja RN Unavailable Unavail able Source [...] release of HIV test results or diagnoses. [id number] Reason for Visit * Reason Comments Results Encounter Details Date Type Department Care Team (Riky st Contact Info) Description 12/12/2024 Telephone [facility] Liver Transplant at [address] [address] Maureen Pantoja, RN Results Social [...] In the past 12 months has e [employer], gas, oil, or water [employer] threatened to shut off services in your [...] as of this encounter Care Teams Social Sciences Chair Relationship Specialty Start Date End Date Enedina Mcguire NP [address] [place] [address] PCP - General Internal Medicine 10/05/24 Maureen Pantoja, RN Txp Post Coordinator Transplant Hepatology 10/28/24 documented as of this encounter
--- OUTSIDE RECORDS SUMMARY | 2025-02-10 09:29 | XMS_ITS | Encounter Summary ---
Author Organization Healthcare Address [address] [place] [address] Care Team Providers Care Carton Machine Operator Name Role Phone Jony Conde MD Primary Care Provider [phone] Lj Tapia SOLAR PANEL TECHNICIAN Unavailable [phone] Enedina Mcguire SOLAR PANEL TECHNICIAN Primary Care Provider + Nuria Fall MICROELECTRONICS ASSEMBLER Unavailable Unavaila ble Encounter Details Date Type Department Care Team (Late st Contact Info) Description 07/04/2022 Orders Only External Location [address] [place] [address] Presley Montes De Oca MD [address] [id number] Social History Tobacco Use Types Packs/Day Years [...] on filedocumented in this encounter Care Teams Carton Machine Operator Relationship Specialty Start Date End Date Jony Conde MD [address] [place] [address] [address] [place], [place] [id number] PCP - General 07/18/22 12/03/22 Enedina Mcguire APRN [address] [place] [address] PCP - General 12/04/22 Lj Tapia APRN [address] [place] [address] Referring Physician Gastroenterology 07/18/22 Nuria Fall LPN [facility] TCM Nurse 07/24/24 08/23/24 documented as of this encounter
--- OUTSIDE RECORDS SUMMARY | 2025-02-10 09:29 | XMS_ITS | Encounter Summary ---
[facility] Organization [facility] Address [address] [place] [address] Care Team Providers Care Sales And Marketing Representative Name Role Phone Enedina Mcguire APRN Primary Care Provider + Encounter Details Date Type Department Care Team ([facility] st Contact Info) Description 10/07/2024 Results Follow-Up [facility] INTERNAL MEDICINE [address] [place] [address] Enedina Mcguire APRN [address] [place], [place] [id number] Social History Tobacco Use Types Packs/Day Years Used Date Smoking Tobacco: Former Cigarettes 4 20 Passive Smoke Exposure: Past Smokeless Tobacco: Current Comments:MARIJUANA USE ABOUT 2X PER WEEK - reports no use 08-05-2024 Alcohol Use Standard Drinks/Week Comments Not Currently 0 (1 standard drink = 0.6 oz pure alcohol) 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 [facility] Utilities Answer Date Recorded In the past 12 months has [employer], [employer], oil, or water [employer] threatened to shut off services in your [...] Score 0 10/02/2022 [facility] of Occupat ional Health [...] 2:15 PM EST Office Visit [facility] PAIN MANAGEMENT [address] [address] Vazquze Christie PA-C [address] [place] [address] documented as of this encounter Visit Diagnoses Not on filedocumented in this encounter Additional Health Concerns Assessment Noted Time PHQ-2 Depression Total Score: 1 12/31/19 24 3:25 PM EDT documented as of this encounter Care Teams Sales And Marketing Representative Relationship Specialty Start Date End Date Enedina Mcguire APRN [address] [place] [address] PCP - General Nurse Practitioner 10/27/24 documented as of this encounter
--- OUTSIDE RECORDS SUMMARY | 2025-02-10 09:29 | XMS_ITS | Encounter Summary ---
Author Organization Healthcare Address [address] [place] [address] Care Team Providers Care Line Painting Machine Operator Name Role Phone Jony Conde MD Primary Care Provider [phone] Lj Tapia SECRETARY Unavailable [phone] Enedina Mcguire APRN Primary Care Provider + Nuria Fall FIELD CASHIER Unavailable Unavaila ble Encounter Details Date Type Department Care Team (Late st Contact Info) Description 07/02/2022 Orders Only External Location [address] [place] [address] Provider, External Social History Tobacco Use Types [...] filedocumented in this encounter Care Teams Line Painting Machine Operator Relationship Specialty Start Date End Date Jony Conde MD [address] [facility] [address] [place], [place] [phone] PCP - General 07/18/22 12/03/22 Enedina Mcguire APRN [address] [place] [address] PCP - General 12/04/22 Lj Tapia APRN [address] [place] [address] Referring Physician Gastroenterology 07/18/22 Nuria Fall LPN [facility] TCM Nurse 07/24/24 08/23/24 documented as of this encounter
--- OUTSIDE RECORDS SUMMARY | 2025-02-10 09:29 | XMS_ITS | Clinical Summary ---
Author Organization Healthcare Address [address] [place] [address] Care Team Providers Care Drencher Name Role Phone Lj Tapia Rohini RICKS Unavailable [phone] Enedina Mcguire APRN Primary Care Provider + [...] Bone & Mineral Metabolism [address] [facility], [address] [place] [address] Chelsy Villanueva from Last 3 [...] How often do you attend [facility] or restorationist services? Patient unable to answer 07/14/2024 Do [...] Recorded Patient Health Questionnaire-2 Score 2 09/29/2024 [facility] - Occupational Stress Questionnaire Answer Date [...] drink first t deborah in the morning (EYE-DOORSHAKER) to steady your nerves or to get [...] 2 - 13+ 2-dose series) 10/11/2010 09/13/2010 [id number] Vaccine ( - 2024- season) 2025 03/17/2021, [...] this topic Medical Devices Implanted Type Area Vp Customer Service Device Identifier Shelf Expiration Date Model / Serial / Lot Concerto Bradley Coil-07/03/2022 Implanted:06/15 by Timmy Brunner MD (Quantity not on file) Coil Abdomen Description:Multiple Coil Co ncerto Pgla Bradley Detach COILS implanted on 07/03/2022 by Timmy Brunner MD at [facility]--info can be found in Care Everywhere for [facility] as of 11/15/23 Dona Coil-07/03/2022 Implanted:06/15 by Timym Brunner MD (Quantity not on file) Coil Abdomen [employer] Description:Coil Emb Dona 3.7/Implanted: Qty: 1 on 07/03/2022 by Timmy Brunner MD at [facility] Plate Plate N/A: Neck Plug Vasc Anton Emb Amplatzer Implanted:06/15 by Timmy Brunner MD (Quantity not on file) Plug Other Vein / / [id number] Description:Plug Vasc Anton Em b Ampltz .027 [id number] - [id number] Implanted: Qty: 1 on 07/03/2022 by Timmy Brunner MD at [facility] Stent Gastro Panc 5fr 5cm - [id number] Implanted:Qty: 1 on 11/20/2023 by Devang Mcghee, ЮЛИЯ at [facility] Pancreas [employer]-[id number] 08/13/2026 [id number] / / [id number] Procedures Procedure Name Priority Date/Time Associated Diagnosis [...] BLES Final Result Performing Organization Address City/[facility]/ZIP Co de Phone Number [facility] [address] [place] [address] * Hepatitis C Antibody (07/14/2024 4:31 PM EST) Hepatitis C Antibody Negative Negative 07/14/2024 5:27 PM EST [facility] Blood Venous blood specimen / Unknown Venipuncture / Unknown 07/14/2024 4:31 PM EST 07/14/2024 4:54 PM EST Laureano Salinas APRN, DNP LAB BLOOD ORDERA BLES Final Result Performing Organization Address City/[facility] Co de Phone Number [facility] [address] [place] [address] from Last 3 Months or Most Recently Relevant to [place] [address] [facility] [address] [facility] Advance Directives * Full Code (Latest Code Status on File) Date Activated Date Inactivated Comments 07/11/2024 11:04 PM 07/23/2024 6:27 PM Question Answer Comments Patient has decision-making capacity? Yes * Full Code Date Activated Date Inactivated Comments 11/14/2023 10:15 PM 11/27/2023 9:08 PM Question Answer Comments Patient has decision-making capacity? Yes Care Teams Drencher Relationship Specialty Start Date End Date Enedina Mcguire APRN [address] [place] [address] PCP - General 12/04/22 Lj Tapia APRN [facility] [place] [address] Referring Physician Gastroenterology 07/18/22
--- OUTSIDE RECORDS SUMMARY | 2025-02-10 09:29 | XMS_ITS | Encounter Summary ---
[facility] Address [address] [place] [address] Care Team Providers Care Billiard Table Assembler Name Role Phone Enedina Mcguire APRN Primary Care Provider + Reason for Visit * Reason Comments Med Refill Encounter Details Date Type Department Care Team (Late st Contact Info) Description 09/12/2022 Refill [facility] GASTROENTEROLOGY [address] [facility] [address] [place] [address] Lj Tapia APRN [address] [place] [address] Social History Tobacco Use Types Packs/Day Years [...] Not on file Preferred Language Citizen Of [place] 07/03/2022 Sex and Gender Information Value Date [...] [facility] [address] [address] Vazquez Christie PA-C [address] [place] [address] documented as of this encounter Visit Diagnoses Not on filedocumented in this encounter Care Teams Billiard Table Assembler Relationship Specialty Start Date End Date Enedina Mcguire APRN [address] [place] [address] PCP - General Nurse Practitioner 10/27/24 documented as of this encounter
--- OUTSIDE RECORDS SUMMARY | 2025-02-10 09:29 | XMS_ITS | Encounter Summary ---
Author Organization [facility] Address [address] [place] [address] Care Team Providers Care Textile Engraver Name Role Phone Enedina Mcguire NP Primary Care Provider + [phone] Maureen Pantoja RN Unavailable Unavail able Source [...] release of HIV test results or diagnoses. [id number] Reason for Visit * Reason Onset Date Comments Medication Refill 01/21/2025 Encounter Details Date Type Department Care Team (Late st Contact Info) Description 01/21/2025 Refill [facility] Liver Transplant at [address] [place] [address] Lydia Sanchez MD [address] [place] [address] Liver/[place] [address] Encounter for therapeutic drug monitoring; S/P liver transplant ([facility]); Hypomagnesemia; Kidney transplant recipient; Hypertension, unspecified [...] 01/06/2025 Leisa Juarez MD Next appointment: 02/03/2025 [facility] Last labs: Lab Results Component Value [...] for therapeutic drug monitoring S/P liver transplant ([facility]) Hypomagnesemia Disorders of magnesium metabolism Kidney [...] as of this encounter Care Teams Textile Engraver Relationship Specialty Start Date End Date Enedina Mcguire NP [address] [place] [address] PCP - General Internal Medicine 10/05/24 Maureen Pantoja RN Txp Post Coordinator Transplant Hepatology 10/28/24 documented as of this encounter
--- OUTSIDE RECORDS SUMMARY | 2025-02-10 09:31 | XMS_ITS | Encounter Summary ---
Author Organization [facility] Address [address] [place] [address] Care Team Providers Care Lockstitch Lining Setter Name Role Phone Enedina Mcguire NP Primary Care Provider + [phone] Maureen Pantoja RN Unavailable Unavail able Source [...] release of HIV test results or diagnoses. [id number] Reason for Visit * Reason Comments Results Encounter Details Date Type Department Care Team (Late st Contact Info) Description 01/23/2025 Telephone [facility] Liver Transplant at [address] [address] Maureen Pantoja, RN Results Social [...] Recorded In the past 12 months has [employer], gas, oil, or water company threatened to [...] that he is on his way to [facility] ED. Message routed to Inpatient Txp Team. * Maureen Pantoja RN - 01/27/2025 2:28 PM EDT Reviewed with Dr. Alonzo who recommends that patient go to ED. Local [place], but would prefer [facility] to do full infectious work-up in context of febrile neutropenia. Spoke with patient again. Patient very reluctant to go to ED. Advised [place] to go to local hospital, but that he needs further testing to rule out infection and get treatment if needed. Patient agreeable to going to local hospital. Patient requested [email or web address] message stating what to tell [facility] ED. Message sent. * Maureen Pantoja RN [...] 01/27/2025 10:25 AM EDT FK 11.3 Received [employer] message from patient's that patient began feeling [...] documented as of this encounter Care Teams Lockstitch Lining Setter Relationship Specialty Start Date End Date Enedina Mcguire NP [address] [place] [address] PCP - General Internal Medicine 10/05/24 Maureen Pantoja, RN Txp Post Coordinator Transplant Hepatology 10/28/24 documented as of this encounter
--- OUTSIDE RECORDS SUMMARY | 2025-02-10 09:31 | XMS_ITS | Encounter Summary ---
Author Organization [facility] Address [address] [place] [address] Care Team Providers Care Drug Room Clerk Name Role Phone Enedina Mcguire NP Primary Care Provider + [phone] Maureen Pantoja RN Unavailable Unavail able Source [...] release of HIV test results or diagnoses. [id number] Health Encounter Details Date Type Department Care Team (Late st Contact Info) Description 01/27/2025 Telephone [facility] Liver Transplant at [address] [address] Marlene Ro MA Social History [...] Recorded In the past 12 months has [employer], gas, oil, or water [employer] threatened to shut off services in your [...] AM EDT Called and spoke to Gladys, orthotic/prosthetic clinician export traffic department manager, and taran Rosario about his 1 [...] documented as of this encounter Care Teams Drug Room Clerk Relationship Specialty Start Date End Date Enedina Mcguire NP [address] [place] [address] PCP - General Internal Medicine 10/05/24 Maureen Pantoja, RN Txp Post Coordinator Transplant Hepatology 10/28/24 documented as of this encounter
--- OUTSIDE RECORDS SUMMARY | 2025-02-10 09:31 | XMS_ITS | Encounter Summary ---
Author Organization [facility] Address [address] [place] [address] Care Team Providers Care Load Blocker Name Role Phone Enedina Mcguire NP Primary Care Provider + [phone] Maureen Pantoja RN Unavailable Unavail able Source [...] release of HIV test results or diagnoses. [id number] Reason for Visit * Reason Onset Date Comments Medication Refill 01/21/2025 Encounter Details Date Type Department Care Team (Late st Contact Info) Description 01/21/2025 Refill [facility] Liver Transplant at [address] [place] [address] Rose Montelongo MD [facility] [address] [place], [place] [id number] Social History Tobacco Use Types Packs/Day Years Used Date Smoking Tobacco: Former Cigarettes Smokeless Tobacco: Current Alcohol Use Standard Drinks/Week Comments Yes 0 (1 standard drink = 0.6 oz pure alcohol) History of alcohol abuse, reports no use in 3 week- typically endorses use as 4 glasses of wine a days Utilities Answer Date Recorded In the past 12 months has [employer], gas, oil, or water [employer] threatened to shut off services in [...] documented as of this encounter Care Teams Load Blocker Relationship Specialty Start Date End Date Enedina Mcguire NP [address] [place] [address] PCP - General Internal Medicine 10/05/24 Maureen Pantoja, ЮЛИЯ Txp Post Coordinator Transplant Hepatology 10/28/24 documented as of this encounter
--- OUTSIDE RECORDS SUMMARY | 2025-02-10 09:31 | XMS_ITS | Encounter Summary ---
Author Organization [facility] Address [address] [place] [address] Care Team Providers Care Data Abstractor Name Role Phone Enedina Mcguire APRN Primary Care Provider + Reason for Visit * Reason Onset Date Comments Appointment 01/08/2025 Encounter Details Date Type Department Care Team (Late st Contact Info) Description 01/08/2025 Telephone [facility] [address] [phone] Vazquez Christie PA-C [address] [place] [address] Appointment Social History Tobacco Use Types Packs/Day [...] Recorded In the past 12 months has [employer], gas, oil, or water [employer] threatened to shut off services in your [...] 10/02/2022 [facility] Occupat ional [facility] - Occupational Stress Questionnaire Answer Date Recorded [...] to patient: Self Best call back number: [phone] Chief complaint: C2/3 and C6/7 Medial branch [...] to patient: Self Best call back number: [phone] Patient is needing: PATIENT IS RETURNING A PHONE CALL TO [facility] - documented in this encounter Plan of Treatment Upcoming Encounters Date Type Department Care Team (Late st Contact Info) Description 04/02/2025 2:15 PM EST Office Visit [facility] PAIN MANAGEMENT [address] [address] Vazquez Christie PA-C [address] [address] documented as of this encounter Visit Diagnoses Not on filedocumented in this encounter Additional Health Concerns Assessment Noted Time PHQ-2 Depression Total Score: 1 12/31/19 24 3:25 PM EDT documented as of this encounter Care Teams Data Abstractor Relationship Specialty Start Date End Date Enedina Mcguire APRN [address] [place] [address] PCP - General Nurse Practitioner 10/27/24 documented as of this encounter
--- OUTSIDE RECORDS SUMMARY | 2025-02-10 09:31 | XMS_ITS | Encounter Summary ---
Author Organization [facility] Address [address] [place] [address] Care Team Providers Care Manufacturing Quality Manager Name Role Phone Enedina Mcguire APRN [...] Recorded In the past 12 months has [employer] gas, oil, or water [employer] threatened to [...] Brief Depression Severity Measure Score 0 10/02/2022 [facility] of Occupat ional Health - Occupational Stress [...] GED or equivalent No 07/09/2024 Preferred Language Libyan 07/09/2024 PHQ-2 Answer Date Recorded Patient Health [...] Description 04/02/2025 2:15 PM EST Office Visit [facility] [address] [address] Vazquez Christie PA-C [address] [place] [address] documented as of this encounter Visit Diagnoses Not on filedocumented in this encounter Additional Health Concerns Assessment Noted Time PHQ-2 Depression Total Score: 1 12/31/19 24 3:25 PM EDT documented as of this encounter Care Teams Manufacturing Quality Manager Relationship Specialty Start Date End Date Enedina Mcguire APRN [address] [place] [address] PCP - General Nurse Practitioner 10/27/24 documented as of this encounter
--- OUTSIDE RECORDS SUMMARY | 2025-02-10 09:31 | XMS_ITS | Encounter Summary ---
Author Organization [facility] Address [address] [place] [address] Care Team Providers Care Clinical Biochemist Name Role Phone Enedina Mcguire NP Primary Care Provider + [phone] Maureen Pantoja RN Unavailable Unavail able Source [...] release of HIV test results or diagnoses. [id number] Reason for Visit * Reason Comments Medication Management Encounter Details Date Type Department Care Team (Late st Contact Info) Description 01/26/2025 Telephone [facility] Liver Transplant at [address] [address] Maureen Pantoja, professor of anthropology Management Social History Tobacco Use Types Packs/Day Years Used Date Smoking Tobacco: Former Cigarettes Smokeless Tobacco: Current Alcohol Use Standard Drinks/Week Comments Yes 0 (1 standard drink = 0.6 oz pure alcohol) History of alcohol abuse, reports no use in 3 week- typically endorses use as 4 glasses of wine a days Utilities Answer Date Recorded In the past 12 months has [employer], gas, oil, or water [employer] threatened to shut off services in your [...] today. Med list updated. Patient notified via [employer]. CMV monitoring DUE ~ 02/09, 02/23, 03/09. [...] as of this encounter Care Teams Clinical Biochemist Relationship Specialty Start Date End Date Enedina Mcguire NP [address] [place] [address] PCP - General Internal Medicine 10/05/24 Maureen Pantoja, ЮЛИЯ Txp Post Coordinator Transplant Hepatology 10/28/24 documented as of this encounter
--- OUTSIDE RECORDS SUMMARY | 2025-02-10 09:31 | XMS_ITS | Encounter Summary ---
Author Organization [facility] Address [address] [place] [id number] Care Team Providers Care Elementary Secretary Name Role Phone Enedina Mcguire NP Primary Care Provider + [phone] Maureen Pantoja RN Unavailable Unavail able Source [...] release of HIV test results or diagnoses. [id number] Health Encounter Details Date Type Department Care Team (Late st Contact Info) Description 12/09/2024 Chart Note [facility] Liver Transplant at [address] [place] [phone] Marlene Ro MA Social History Tobacco Use [...] Recorded In the past 12 months has [employer], gas, oil, or water [employer] threatened to shut off services in your [...] No growth URINE SPECIMEN / Unknown Result [facility] Provider MICROBIOLOGY - GENERAL OR DERABLES Final Result * (ABNORMAL) Magnesium (12/08/2024 10:43 AM EDT) Pathologist [facility] Magnesium 1.3(A) 1.6 - 2.4 mg/dL Plasma Narrative Resulting Agency Comment [facility] Result [facility] LAB BLOOD ORDERABLES Denisse l Result * (ABNORMAL) Renal Function Panel w/o EGFR (12/08/2024 10:43 AM EDT) Pathologist [facility] Glucose 83 mg/dL BUN 21 4 - [...] Resulting Agency Comment [facility] Result [facility] LAB BLOOD ORDERABLES Denisse l Result * Creatinine, urine, random (12/08/2024 10:43 AM EDT) [facility] Creatinine, Urine 65 Urine Narrative Resulting Agency Comment [facility] Result [facility] Provider URINE ORDERABLES Final Re sult * Urinalysis w/Rfl to Microscopic (12/08/2024 10:43 AM EDT) Pathologist [facility] Glucose, UA Negative Negative Ketones, UA Negative Negative Blood, UA Negative Negative Bilirubin, UA Negative Negative Urobilinogen, UA Normal Normal Protein, UA Negative Negative Nitrite, UA Negative Negative Leukocyte Esterase, UA Negative Negative pH, UA 6.0 4.5 - 8.0 Specific [place], UA 1.010 1.005 - 1.030 Clarity, UA Clear Clear Color, UA Yellow Light Yellow, Yellow Urine Narrative Resulting Agency Comment [facility] Result [facility] Provider URINE ORDERABLES Final Re sult * Urine Protein, Tot, Random (w/o Creat) (12/08/2024 10:43 AM EDT) Total Protein, Ur 11.0 Urine Narrative Resulting Agency Comment [facility] Result [facility] Provider URINE ORDERABLES Final Re sult * (ABNORMAL) Hepatic Function Panel (12/08/2024 10:43 AM EDT) Pathologist [facility] Bilirubin, Direct 0.1 Bilirubin, Indirect 0.2 Alkaline Phosphatase 80 U/L ALT 14 U/L AST 16 U/L Total Bilirubin 0.3 0.1 - 1.4 mg/dL Total Protein 5.6(A) 6.4 - 8.2 g/dL Plasma Narrative Resulting Agency Comment [facility] Result [facility] Provider LAB BLOOD ORDERABLES Denisse l [...] 5.1 10^3/mL Blood Narrative Resulting Agency Comment [facility] [...] as of this encounter Care Teams Elementary Secretary Relationship Specialty Start Date End Date Enedina Mcguire NP [address] [place] [address] PCP - General Internal Medicine 10/05/24 Maureen Pantoja, ЮЛИЯ Txp Post Coordinator Transplant Hepatology 10/28/24 documented as of this encounter
--- OUTSIDE RECORDS SUMMARY | 2025-02-10 09:32 | XMS_ITS | Encounter Summary ---
Author Organization [facility] Address [address] [place] [id number] Care Team Providers Care Vocational Childcare Teacher Name Role Phone Enedina Mcguire NP Primary Care Provider + [phone] Alicia Rankin RN Unavailable Unavail able Source [...] release of HIV test results or diagnoses. [id number] Reason for Visit * Reason Comments Results Medication Dose Change Encounter Details Date Type Department Care Team (Late st Contact Info) Description 12/22/2024 Telephone [facility] Liver Transplant at [address] [phone] Alicia Rankin, ЮЛИЯ Results; Medication [...] Recorded In the past 12 months has [employer], gas, oil, or water company threatened to [...] for therapeutic drug monitoring S/P liver transplant ([facility]) Hypomagnesemia Disorders of magnesium metabolism [...] as of this encounter Care Teams Vocational Childcare Teacher Relationship Specialty Start Date End Date Enedina Mcguire NP [address] [place] [address] PCP - General Internal Medicine 10/05/24 Alicia Rankin, RN Txp Post Coordinator Transplant Hepatology 10/28/24 documented as of this encounter
--- OUTSIDE RECORDS SUMMARY | 2025-02-10 09:32 | XMS_ITS | Clinical Summary ---
Author Organization [facility] Address 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 [id number] Allergies Active Allergy Reactions Criticality [...] 10/18/19 25 10:24 AM EDT 025 Active ergocalciferol (ERGOCALCIFEROL) 1,250 mcg (50,000 unit) capsuleIndications :Encounter for therapeutic drug monitoring,S/P liver transplant (CMS-HCC),Hypomagn esemia,Kidney transplant recipient,Hyperten kevin, unspecified type,Gastroesophag eal reflux disease, unspecified whether esophagitis present Take 1 capsule (50,000 Units total) by mouth once a week. 4 capsule 2 025 Active famotidine (PEPCID) 20 MG tabletIndications: Encounter for therapeutic drug monitoring,S/P liver transplant ([facility]),Hypomagn esemia,Kidney transplant recipient,Hyperten kevin, unspecified type,Gastroesophag eal reflux disease, unspecified whether esophagitis present Take 1 tablet (20 mg total) by mouth 2 times a day. 60 tablet 2 025 Active mycophenolate (CELLCEPT) 250 mg capsuleIndications :Encounter for therapeutic drug monitoring,S/P liver transplant ([facility]),Hypomagn esemia,Kidney transplant recipient,Hyperten kevin, unspecified type,Gastroesophag eal reflux disease, unspecified whether esophagitis present Take 2 capsules (500 mg total) by mouth 2 times a day. 120 capsule 5 025 Active NIFEdipine (PROCARDIA-XL) 30 MG (OSM) 24 hr tabletIndications: Encounter for therapeutic drug monitoring,S/P liver transplant ([facility]),Hypomagn esemia,Kidney transplant recipient,Hyperten kevin, unspecified type,Gastroesophag eal [...] :Encounter for therapeutic drug monitoring,S/P liver transplant ([facility]),Hypomagn esemia,Kidney transplant recipient,Hyperten kevin, unspecified type,Gastroesophag eal reflux disease, unspecified whether esophagitis present Take 1 capsule (100 mg total) by mouth 2 times a day. Work on decreasing to one capsule daily. 60 capsule 025 Active naltrexone (DEPADE) 50 mg tablet Take 1 tablet (50 mg total) by mouth daily. 30 tablet 5 025 Active acetaminophen (TYLENOL) 325 MG tablet Take 3 tablets (975 mg total) by mouth every 8 hours as needed 100 tablet 025 03/01 Active methocarbamoL (ROBAXIN) 500 MG tablet [...] 90 tablet 01/31/20 11:36 AM EDT Active lidocaine (LIDODERM) 5 % Place 1 patch onto the skin daily. Apply patch for 12 hours and then remove patch and leave off for 12 hours. 30 patch 01/31/20 11:36 AM EDT Active FLUoxetine (PROZAC) 20 MG capsule Take 1 capsule (20 mg total) by mouth daily. 30 capsule 1 Active magnesium chloride (SLOW MAG) 71.5 mg TbECIndications:hy pomagnesemia Take 2 tablets (143 mg total) by mouth 3 times a day. Indications: hypomagnesemia 180 tablet 2 025 02/02 FLUoxetine (PROZAC) 20 MG capsule Take 1 capsule (20 mg total) by mouth daily. 30 capsule 2 025 02/09 Discontinued acetaminophen (TYLENOL) 325 MG tabletIndications: Encounter for therapeutic drug monitoring,S/P liver transplant ([facility]),Hypomagn esemia,Kidney transplant recipient,Hyperten kevin, unspecified type,Gastroesophag eal reflux disease, unspecified whether esophagitis present Take 3 tablets (975 mg total) by mouth every 8 hours. 200 tablet 025 01/30 Discontinued( Stop Taking at Discharge) sulfamethoxazole-t rimethoprim (BACTRIM) 400-80 mg per tabletIndications: Encounter for therapeutic drug monitoring,S/P liver transplant ([facility]),Hypomagn esemia,Kidney transplant recipient,Hyperten kevin, unspecified type,Gastroesophag eal reflux disease, unspecified whether esophagitis present Take 1 tablet by mouth daily. 30 tablet 2 025 01/26 Discontinued gabapentin (NEURONTIN) 100 MG capsuleIndications :Encounter for therapeutic drug monitoring,S/P liver transplant ([facility]),Hypomagn esemia,Kidney transplant recipient,Hyperten kevin, unspecified type,Gastroesophag eal reflux disease, unspecified whether esophagitis present Take 1 capsule (100 mg total) by mouth 3 times a day. 90 capsule 025 01/21 Discontinued( Refill / Reorder) naltrexone (DEPADE) 50 mg tablet Take 1 tablet (50 mg total) by mouth daily. 30 tablet 025 01/21 Discontinued( Refill / Reorder) valGANciclovir (VALCYTE) 450 mg tabletIndications: Encounter for therapeutic drug monitoring,S/P liver transplant ([facility]),Hypomagn esemia,Kidney transplant recipient,Hyperten kevin, unspecified type,Gastroesophag eal [...] Encounter for therapeutic drug monitoring,S/P liver transplant ([facility]),Hypomagn esemia,Kidney transplant recipient,Hyperten kevin, unspecified type,Gastroesophag eal reflux disease, unspecified whether esophagitis present Take 2 tablets (900 mg total) by mouth daily. 60 tablet 025 01/26 Discontinued fidaxomicin (DIFICID) 200 mg Tab tablet Take 1 tablet (200 mg total) by mouth 2 times a day for 8 days. 16 tablet 01/31/20 25 11:36 AM EDT 025 02/07 Active Problems Problem Noted Date Diagnosed Date [...] with SBP, s/p CTX x5d; will cont rat exterminator ppx with Cipro 500mg daily - [...] Encounters Date Type Department Care Team Description 02/09/2025 Chart Note [facility] Liver Transplant at [address] [address] Marisela Martinez MA 02/09/2025 Telephone [facility] Liver Transplant at [address] [place] [address] Marisela Martinez MA 02/08/2025 Refill [facility] Liver Transplant at [address] [place] [address] Harvey Domínguez III, MD 02/04/2025 Telephone [facility] Liver Transplant at [address] [place] [address] Marlene Ro MA 02/03/2025 Telephone [facility] Liver Transplant at [address] [place] [phone] Mitzy Gill MA Results 02/03/2025 Telephone [facility] Liver Transplant at [address] [phone] Marlene Ro MA 02/03/2025 Chart Note [facility] Liver Transplant at [address] [phone] Marlene Ro MA 02/03 Labs entered from [facility] 01/27/2025 6:28 PM EDT - 01/30/2025 2:25 PM EDT Hospital Encounter [facility] [address] [place] [phone] Sunny Wei MD Haugen, Christine, MD Diarrhea of presumed infectious origin (Primary Dx); Immunosuppression (CMS-HCC) Discharge Disposition: Home or Self Care WITHOUT Home Care Services 01/27/2025 Travel 01/27/2025 Telephone [facility] Liver Transplant at [address] [address] Marlene Ro MA 01/26/2025 Telephone [facility] Liver Transplant at [address] [address] Maureen Pantoja, operational risk manager Management 01/23/2025 Telephone [facility] Liver Transplant at [address] [address] Maureen Pantoja, RN Results 01/21/2025 Refill [facility] Liver Transplant at [address] [place] [address] Rose Montelongo MD 01/21/2025 Refill [facility] Liver Transplant at [address] [place] [phone] Lydia Sanchez MD Encounter for therapeutic drug monitoring; S/P liver transplant ([facility]); Hypomagnesemia; Kidney transplant recipient; Hypertension, unspecified type; Gastroesophageal reflux disease, unspecified whether esophagitis present 01/21/2025 Refill [facility] Liver Transplant at [address] [address] Harvey Domínguez III, MD Encounter for therapeutic drug monitoring; S/P liver transplant ([facility]); Hypomagnesemia; Kidney transplant recipient; Hypertension, unspecified type; Gastroesophageal reflux disease, unspecified whether esophagitis present 01/20/2025 Chart Note [facility] Liver Transplant at [address] [address] Marlene Ro MA 01/20 Labs entered from [facility] 01/19/2025 Telephone [facility] Liver Transplant at [address] [address] Gladis Chisholm MA Critical Lab Results 01/17/2025 Refill [facility] Liver Transplant at [address] [address] Harvey Domínguez III, MD Encounter for therapeutic drug monitoring; S/P liver transplant ([facility]); Hypomagnesemia; Kidney transplant recipient; Hypertension, unspecified type; Gastroesophageal reflux disease, unspecified whether esophagitis present 01/16/2025 Telephone [facility] Liver Transplant at [address] [address] Maureen Pantoja, RN Results 01/15/2025 Chart Note [facility] Liver Transplant at [address] [address] Marlene Ro MA 01/14 Labs entered from [facility] 01/15/2025 Telephone [facility] Liver Transplant at [address] [phone] Marlene Ro MA 01/15/2025 Telephone [facility] Liver Transplant at [address] [place] [phone] Kaylin Willard MSW 01/14/2025 Telephone [facility] Liver Transplant at [address] [phone] Marlene Ro MA 01/09/2025 Chart Note [facility] Liver Transplant at [address] [phone] Marlene Ro MA 01/09 Labs entered from [facility] 01/09/2025 Telephone [facility] Liver Transplant at [address] [phone] Marisela Martinez MA Results 01/08/2025 Telephone [facility] Liver Transplant at [address] [phone] Maureen Pantoja, ЮЛИЯ Results 01/06/2025 9:30 AM EDT Office Visit [facility] Liver Transplant at [address] [phone] Leisa Juarez MD Kidney transplant recipient (Primary Dx); Hypomagnesemia; Hyperphosphatemia; Immunosuppression ([facility]); Viral disease exposure; Hypertension, unspecified type 01/06/2025 8:20 AM EDT Office Visit [facility] Liver Transplant at [address] [place] [phone] Cosmo Pacheco MD Paci, Philippe, MD S/P liver transplant (CMS-HCC) (Primary Dx); Immunosuppression (CMS-HCC); Kidney transplant recipient; Alcohol use disorder 01/06/2025 Social Work [facility] Liver Transplant at [address] [place] [address] Madan WillardenzNUBIA moses 01/05/2025 Chart Note [facility] Liver Transplant at [address] [place] [address] Marlene Ro MA 01/05 Labs entered from [facility] 01/05/2025 Telephone [facility] Liver Transplant at [address] [place] [address] Marisela Martinez MA Critical Lab Results 01/05/2025 Telephone [facility] Liver Transplant at [address] [place] [address] Maureen Pantoja, RN Results 12/31/2024 Chart Note [facility] Liver Transplant at [address] [place] [address] Marlene Ro MA 12/31 Labs entered from [facility] 12/29/2024 Telephone [facility] Liver Transplant at [address] [place] [address] Maureen Pantoja, RN Results 12/23/2024 Chart Note [facility] Liver Transplant at [address] [place] [address] Maureen Pantoja, engine house helper results from 12/23/24 entered from [facility]. 12/22/2024 Telephone [facility] Liver Transplant at [address] [place] [address] Maueren Pantoja, RN Results; Medication Dose Change 12/21/2024 Refill [facility] Liver Transplant at [address] [place] [phone] Lydia Sanchez MD Encounter for therapeutic drug monitoring; S/P liver transplant ([facility]); Hypomagnesemia; Kidney transplant recipient; Hypertension, unspecified type; Gastroesophageal reflux disease, unspecified whether esophagitis present 12/18/2024 2:00 PM EDT Office Visit [facility] Psychiatry Transplant at [address] [place] [address] Lizeth Warren PsyD Alcohol use disorder (Primary Dx); PTSD (post-traumatic stress disorder) 12/18/2024 Refill [facility] Liver Transplant at [address] [address] Maureen Pantoja, ЮЛИЯ Encounter for therapeutic drug monitoring; S/P liver transplant ([facility]); Hypomagnesemia; Kidney transplant recipient; Hypertension, unspecified type; Gastroesophageal reflux disease, unspecified whether esophagitis present 12/17/2024 Chart Note [facility] Liver Transplant at [address] [address] Marlene Ro MA 12/16 Labs entered [facility] 12/12/2024 Telephone [facility] Liver Transplant at [address] [place] [address] Maureen Pantoja, RN Results 12/09/2024 11:45 AM EDT Office Visit [facility] Psychiatry Transplant at [address] [place] [address] Rebekah Linares LICDC Alcohol use disorder (Primary Dx) 12/09/2024 10:20 AM EDT Office Visit [facility] Liver Transplant at [address] [place] [address] Harvey Domínguez III, MD Encounter for therapeutic drug monitoring (Primary Dx); S/P liver transplant ([facility]); Hypomagnesemia; Kidney transplant recipient; Hypertension, unspecified type; Gastroesophageal reflux disease, unspecified whether esophagitis present 12/09/2024 9:50 AM EDT Office Visit [facility] Liver Transplant at [address] [address] Leisa Juarez MD Kidney transplant recipient (Primary Dx); Immunosuppressive management encounter following liver transplant ([facility]); Hypomagnesemia; S/P liver transplant ([facility]); Hypertension, unspecified type; Hyperparathyroidism ([facility]) 12/09/2024 Social Work [facility] Liver Transplant at [address] [address] Kaylin Willard MSW 12/09/2024 Orders Only [facility] Liver Transplant at [address] [address] Maureen Pantoja, ЮЛИЯ 12/09/2024 Orders Only [facility] Liver Transplant at [address] [address] Maureen Pantoja, RN Kidney transplant recipient (Primary Dx); Liver transplant recipient ([facility]); Viral disease exposure; Immunosuppression ([facility]) 12/09/2024 Telephone [facility] Liver Transplant at [address] [address] Mitzy Gill MA 12/09/2024 Chart Note [facility] Liver Transplant at [address] [address] Marlene Ro MA 12/04/2024 Telephone [facility] Liver Transplant at [address] [address] Maureen Pantoja, RN Results 12/04/2024 Chart Note [facility] Liver Transplant at [address] [place] [address] Marlene Ro MA FK Pending-12/0412/04/2024 Telephone [facility] Liver Transplant at [address] [place] [address] Kaylin Willard MSW 12/04/2024 Telephone [facility] Liver Transplant at [address] [place] [address] Marlene Ro MA 12/03/2024 Chart Note [facility] Liver Transplant at [address] [place] [phone] Marlene Ro MA 12/02/2024 Telephone [facility] Liver Transplant at [address] [place] [phone] Mitzy Gill MA 12/01/2024 Telephone [facility] Liver Transplant at [address] [place] [phone] Gladis Chisholm MA 11/27/2024 Telephone [facility] Liver Transplant at [address] [place] [address] Maureen Pantoja, RN Results 11/27/2024 Chart Note [facility] Liver Transplant at [address] [place] [address] Marlene Ro MA FK Pending 11/27 Labs 11/26/2024 Telephone [facility] Liver Transplant at [address] [place] [phone] 75 Maureen Pantoja, RN Results 11/25/2024 10:50 AM EDT Office Visit [facility] Liver Transplant at [address] [place] [address] Leisa Juarez MD Kaur, Taranpreet NADIYA (acute kidney injury) ([facility]) (Primary Dx); Kidney replaced by transplant; Metabolic acidosis; Hypervolemia associated with renal insufficiency 11/25/2024 10:20 AM EDT Office Visit [facility] Liver Transplant at [address] [place] [address] Lydia Sanchez MD Encounter for therapeutic drug monitoring (Primary Dx); S/P liver transplant ([facility]); Hypomagnesemia; Kidney transplant recipient; Hypertension, unspecified type; Gastroesophageal reflux disease, unspecified whether esophagitis present; Abdominal pain, unspecified abdominal location 11/25/2024 9:00 AM EDT Procedure visit [facility] Urology at [facility] [address] [place] [phone] Julieta Rogers PA Retained ureteral stent of transplanted kidney ([facility]) (Primary Dx) 11/25/2024 Social Work [facility] Liver Transplant at [address] [place] [address] Kaylin Willard MSW 11/24/2024 Orders Only [facility] Liver Transplant at [address] [place] [address] Maureen Pantoja, RN 11/21/2024 Orders Only [facility] Urology at [facility] [address] [facility] [address] [place] [phone] Vasile Gordillo MA 11/21/2024 Telephone [facility] Liver Transplant at [address] [place] [address] Marueen Pantoja, RN Results 11/21/2024 Chart Note [facility] Liver Transplant at [address] [place] [address] Marlene Ro MA FK: 11/18 & 11/20 Pending 11/20/2024 Refill [facility] Liver Transplant at [address] [place] [address] Maureen Pantoja, RN 11/20/2024 Refill [facility] Liver Transplant at [address] [address] Maureen Pantoja, ЮЛИЯ 11/20/2024 Orders Only [facility] Liver Transplant at [address] [address] Maureen Pantoja, RN S/P liver transplant (CMS-HCC) (Primary Dx); Immunosuppression (CMS-HCC); Viral disease exposure; Alcohol use 11/18/2024 Telephone [facility] Liver Transplant at [address] [address] Maureen Pantoja, RN Results 11/18/2024 Chart Note [facility] Liver Transplant at [address] [place] [address] Marlene Ro MA 11/11/2024 10:30 AM EDT Office Visit [facility] Liver Transplant at [address] [address] Unknown, Attending Provider Jessica Colon Kidney replaced by transplant (Primary Dx); Hypervolemia associated with renal insufficiency 11/11/2024 10:00 AM EDT Office Visit [facility] Liver Transplant at [place] [address] [address] Cosmo Pacheco MD Quillin, Ralph Cutler III, MD Encounter for therapeutic drug monitoring (Primary Dx); Abdominal pain, unspecified abdominal location 11/11/2024 9:30 AM EDT Office Visit [facility] Psychiatry Transplant at [address] [address] Lizeth Warren PsyD PTSD (post-traumatic stress disorder) (Primary Dx) 11/11/2024 8:50 AM EDT [facility] [address] [place] [phone] Harvey Domínguez III, MD Liver replaced by transplant ([facility]); Immunosuppressive management encounter following liver transplant ([facility]); Kidney transplant recipient 11/11/2024 Telephone [facility] Liver Transplant at [address] [address] Maureen Pantoja, RN Results 11/10/2024 Orders Only [facility] Liver Transplant at [address] [address] Maureen Pantoja, RN Liver transplant recipient ([facility]) (Primary Dx); Kidney transplant recipient; Immunosuppressive management encounter following liver transplant ([facility]) 11/10/2024 Orders Only [facility] Liver Transplant at [address] [address] Maureen Pantoja, RN from Last 3 Months Social History [...] Recorded In the past 12 months has [employer], [employer], or [employer] threatened to shut off services in your [...] living in a mcc (including now)? No 01/28/2025 Yearly Questionnaire Answer [...] 10/25/2024, 10/05/2024, Additional history exists Renal Function/GFR 02/03/2026 02/03/2025, 0 01/30/2025, 01/29/2025, Additional history exists Immunization: DTaP/Tdap/Td ( 3 - Td or Tdap) 06/03/2028 06/03/2018, 09/13/2010 Hepatitis C Screening (MyChart) Completed 10/25/2024, 10/07/2024, 10/06/2024, Additional history exists HIV Screening Completed 11/25/2024, 10/12, 10/07/2024 Procedures Procedure Name Priority Date/Time Associated Diagnosis Comments CLOSTRIDIUM DIFFICILE DNA AMPLIFICATION Routine 02/03/2025 11:04 AM EDT TACROLIMUS LEVEL Routine 02/03/2025 9:39 AM EDT CYTOMEGALOVIRUS DNA, QUANT, RT PCR Routine 02/03/2025 9:39 AM EDT BK VIRUS QUANTITATIVE BY PCR, BLOOD Routine 02/03/2025 9:39 AM EDT CREATININE, URINE, RANDOM Routine 2024 9:39 AM EDT URINE PROTEIN, TOTAL, RANDOM (W/O CREATININE) Routine 02/03/2025 9:39 AM EDT HEPATIC FUNCTION PANEL Routine 9:39 AM EDT MAGNESIUM Routine 02/03/2025 9:39 AM EDT RENAL FUNCTION PANEL W/O EGFR Routine 02/03/2025 9:39 AM EDT URINALYSIS W/RFL TO MICROSCOPIC Routine 02/03/2025 9:39 AM EDT CBC AND DIFFERENTIAL Routine 02/03/2025 9:39 AM EDT DIFFERENTIAL Add-On 01/30/2025 7:41 AM EDT TACROLIMUS [...] 55 AM EDT TACROLIMUS LEVEL Timed 01/29/2025 5:55 AM EDT RENAL FUNCTION PANEL W/EGFR [...] Routine 9:30 PM EDT UPPER RESPIRATORY VIRAL/BACTERIAL PANEL-MARKET MANAGER ONLY Routine 01/27/2025 9:30 PM EDT [...] S Routine 01/27/2025 8:20 PM EDT FUNGITELL [id number] Routine 01/28/20 8:20 PM EDT KATIE SCHAFER VIRUS DNA, QNT PCR, BLOOD Routine 01/27/2025 8:20 PM EDT CRYPTOCOCCUS ANTIGEN, SERUM Routine 01/27/2025 8:20 PM EDT CYTOMEGALOVIRUS DNA, QUANT, RT PCR Routine 01/27/2025 8:20 PM EDT ASPERGILLUS AG Routine 01/27/2025 8:20 PM EDT ADENOVIRUS, QUANTITATIVE PCR Routine 01/27/2025 8:20 PM EDT LIPASE STAT [...] 7:50 AM EDT HEPATIC FUNCTION PANEL Routine 07/17/202 5 7:50 AM EDT PHOSPHATIDYLETHANOL CONFIRMATION, B Routine [...] 11/11/2024 9:13 AM EDT Kidney transplant recipient HEPATITIS C ANTIBODY STAT 10/25/2024 10:17 PM EDT TSH Routine 10/07/2024 6:37 PM EDT from Last 3 Months or Most Recently Relevant to Health Maintenance Results * Clostridium difficile DNA Amplification (02/03/2025 11:04 AM EDT) Only the most recent of2 resultswithin the time period is included. Clost. Diff DNA Amp. Positive Norovirus Detected FECES / Unknown Historical Provider BODY FLUIDS AND STOOLS OR DERABLES Edited Result - Final * Urine Protein, Tot, Random (w/o Creat) (02/03/2025 9:39 AM EDT) Only the most recent of8 resultswithin the time period is included. Total Protein, Ur 12.0 Urine Narrative Resulting Agency Comment [facility] Historical Provider URINE ORDERABLES Final Re sult * Cytomegalovirus DNA, Quant, RT PCR (02/03/2025 9:39 AM EDT) Only the most recent of2 resultswithin the time period is included. CMV Quant DNA PCR (Plasma) Negative Plasma Narrative Resulting Agency [facility] LAB BLOOD ORDERABLES Denisse l Result * BK Virus Quantitative by PCR, Blood (02/03/2025 9:39 AM EDT) Only the most recent of3 resultswithin the time period is included. BK Virus Quant PCR PL Negative Plasma Narrative Resulting Agency Comment [facility] LAB BLOOD ORDERABLES Denisse l Result * Hepatic Function Panel (02/03/2025 9:39 AM EDT) Only the most recent of21 resultswithin the time period is included. Bilirubin, Direct 0.1 Bilirubin, Indirect 0.4 Alkaline Phosphatase 61 ALT 15 AST 18 Total Bilirubin 0.5 Total Protein 6.4 Plasma Narrative Resulting Agency Comment [facility] Result [facility] LAB BLOOD ORDERABLES Denisse l Result * Tacrolimus level (02/03/2025 9:39 AM EDT) Only the most recent of19 resultswithin the time period is included. Pathologist [facility] Tacrolimus Lvl 7.0 6 - 15 ng/mL Whole Blood Narrative Resulting Agency Comment [facility] LAB BLOOD ORDERABLES Denisse l Result * Creatinine, urine, random (02/03/2025 9:39 AM EDT) Only the most recent of8 resultswithin the time period is included. Creatinine, Urine 79 Urine Narrative Resulting Agency Comment [facility] Result [facility] URINE ORDERABLES Final Re sult * Urinalysis w/Rfl to Microscopic (02/03/2025 9:39 AM EDT) Only the most recent of9 resultswithin the time period is included. Glucose, UA Negative Negative Ketones, UA Negative Negative Blood, UA Negative Negative Bilirubin, UA Negative Negative Urobilinogen, UA Normal Normal Protein, UA Negative Negative Nitrite, UA Negative Negative pH, UA 6.0 4.5 - 8.0 Specific [place], UA 1.020 1.005 - 1.030 Clarity, UA Clear Clear Color, UA Yellow Light Yellow, Yellow Urine Narrative Resulting Agency Comment [facility] Historical Provider URINE ORDERABLES Final Re sult * (ABNORMAL) CBC and differential (02/03/2025 9:39 AM EDT) Only the most recent of16 resultswithin the time period is included. Hemoglobin 12.2(A) 13.5 - 17.5 g/dL Hematocrit 34.9(A) 41 - 53 % RDW 13.7 11.5 - 14.5 % Lymphocytes Absolute 42.1 / L Monocytes Absolute 17.3 / L Eosinophils Absolute 2.2 / L Basophils Absolute 2.2 / L Neutrophils Relative 1.0(A) 46 - 78 % Lymphocytes Relative 1.2(A) 18 - 52 % Monocytes Relative 0.5(A) 3 - 10 % Eosinophils Relative 0.1 0 - 6 % Basophils Relative 0.1 0 - 3 % Neutrophils Absolute 34.8 / L MCH 32.8 26.0 - 34.0 pg MCHC 35.0 30 - 37 g/dL MCV 93.8 82.0 - 108.0 fL Platelets 152 K/ L RBC 3.72(A) 4.50 - 5.90 10^6/ L WBC 2.8 10^3/mL Blood Narrative Resulting Agency Comment [facility] Historical Provider LAB BLOOD ORDERABLES Denisse l Result * (ABNORMAL) Magnesium (02/03/2025 9:39 AM EDT) Only the most recent of15 resultswithin the time period is included. Pathologist [facility] Magnesium 1.3(A) 1.6 - 2.4 mg/dL Plasma Narrative Resulting Agency Comment [facility] Historical Provider MD LAB BLOOD ORDERABLES Denisse l Result * (ABNORMAL) Renal Function Panel w/o EGFR (02/03/2025 9:39 AM EDT) Only the most recent of15 resultswithin the time period is included. Pathologist [facility] Glucose 114 BUN 17 CO2 28(A) 13 - 22 mmol/L Creatinine 0.90 Potassium 4.1 Sodium 140 Chloride 103 Phosphorus 5.5(A) 2.5 - 4.9 mg/dL Calcium 9.4 EGFR 93 mg/dL Albumin 4.5 3.5 - 5.0 g/dL Blood Narrative Resulting Agency Comment [facility] Provider MD LAB BLOOD ORDERABLES Denisse l Result * (ABNORMAL) Differential (01/30/2025 7:41 AM EDT) Only the most recent of4 resultswithin the time period is included. Pathologist [facility] Neutrophils Relative 39.1(L) 40.0 - 80.0 % 01/30/2025 8:09 AM EDT [facility] Lymphocytes Relative 43.8 15.0 - 45.0 % 01/30/2025 8:09 AM EDT [facility] Monocytes Relative 14.2(H) 0.0 - 12.0 % 01/30/2025 8:09 AM EDT [facility] Eosinophils Relative 2.2 0.0 - [...] - 864 /uL 01/30/2025 8:09 AM EDT [facility] Basophils Absolute 14 0 - 108 /uL 01/30/2025 8:09 AM EDT [facility] Whole Blood 01/30/2025 7:41 AM EDT 01/30/2025 8:01 AM EDT Feliciano Gomez [facility] LAB BLOOD ORDERABLES Final Resu lt [facility] [address] [place] [address], [facility] * (ABNORMAL) Renal Function Panel w/EGFR (01/30/2025 5:51 AM EDT) Only the most recent of4 resultswithin the time period is included. Sodium 139 133 - 146 mmol/L 01/30/2025 7:06 AM EDT [facility] Potassium 3.5 3.5 - 5.3 mmol/L 01/30/2025 7:06 AM EDT [facility] Chloride 105 98 - 110 mmol/L 01/30/2025 7:06 AM EDT [facility] CO2 26 21 - 33 mmol/L 01/30/2025 7:06 AM EDT [facility] Anion Gap 8 3 - 16 mmol/L 01/30/2025 7:06 AM EDT [facility] BUN 29(H) 7 - 25 mg/dL 01/30/2025 7:06 AM EDT [facility] Creatinine 1.14 0.60 - 1.30 mg/dL 01/30/2025 7:06 AM EDT [facility] Glucose 114(H) 70 - 100 mg/dL 01/30/2025 7:06 AM EDT [facility] Calcium 8.7 8.6 - 10.3 mg/dL 01/30/2025 7:06 AM EDT [facility] Phosphorus 5.1(H) 2.1 - 4.7 mg/dL 01/30/2025 7:06 AM EDT [facility] Albumin 4.1 3.5 - 5.7 g/dL 01/30/2025 7:06 AM EDT [facility] Osmolality, Calculated 295 278 - 305 mOsm/kg 01/30/2025 7:06 AM EDT [facility] EGFR 83 01/30/2025 7:06 AM EDT [facility] Comment:As of 2021, the [...] Hill MD LAB BLOOD ORDERABLES Final Result [facility] [address] [id number] * (ABNORMAL) CBC (01/30/2025 5:51 AM EDT) Only the most recent of6 resultswithin the time period is included. WBC 2.1(L) 3.8 - 10.8 10E3/uL 01/30/2025 6:41 AM EDT [facility] RBC 3.41(L) 4.20 - 5.80 10E6/uL 01/30/2025 6:41 AM EDT [facility] Hemoglobin 11.2(L) 13.2 - 17.1 g/dL 01/30/2025 6:41 AM EDT [facility] Hematocrit 31.9(L) 38.5 - 50.0 % 01/30/2025 6:41 AM EDT [facility] MCV 93.7 80.0 - 100.0 fL 01/30/2025 6:41 AM EDT [facility] MCH 32.9 27.0 - 33.0 pg 01/30/2025 6:41 AM EDT [facility] MCHC 35.1 32.0 - 36.0 g/dL 01/30/2025 6:41 AM EDT [facility] RDW 14.8 11.0 - 15.0 % 01/30/2025 6:41 AM EDT [facility] Platelets 95(L) 140 - 400 10E3/uL 01/30/2025 6:41 AM EDT [facility] MPV 6.4(L) 7.5 - 11.5 fL 01/30/2025 6:41 AM EDT [facility] Whole Blood 01/30/2025 5:51 AM EDT 01/30/2025 6:33 AM EDT us Carlton Hill MD LAB BLOOD ORDERABLES Final Result Performing Organization Address City/State/[facility] Co de Phone Number [facility] [address] * CT Neck With IV contrast [...] cavity, parapharyngeal space, and retropharyngeal space. 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 Infrahyoid [...] CT images of the neck were obtained [id number] mL of IOHEXOL 350 MG IODINE/ML INTRAVENOUS SOLUTION administeredintravenously . Sagittal and coronal 2D multiplanar reconstructions wereperformed at the scanner. COMPARISON: None available FINDINGS: Adequate diagnostic quality. Nasopharynx: Symmetric with no mass. Normal torus tubarius, fossa ofRosenmuller, and adenoid tonsillar tissue. Suprahyoid neck: Normal oropharynx, oral cavity, parapharyngeal space, andretropharyngeal space. 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 Infrahyoid neck: [...] 01/29/2025 2:41 PM EDT Feliciano Garcia Jason [employer] IMG CT ORDERABLES Final Result * Sed Rate (01/29/2025 5:55 AM EDT) [facility] Sed Rate 2 0 - 15 mm/hr 01/29/2025 7:03 AM EDT [facility] Whole Blood 01/29/2025 5:55 AM EDT 01/29/2025 6:41 AM EDT us Feliciano Gomez [facility] LAB BLOOD ORDERABLES Final Resu lt Performing Organization Address [facility]/ZIP Co de Phone Number [facility] [address] [place] [address] * C-Reactive Protein (01/29/2025 5:55 AM EDT) [facility] CRP 4.1 1.0 - 10.0 mg/L 01/29/2025 7:13 AM EDT [facility] Plasma 01/29/2025 5:55 AM EDT 01/29/2025 6:41 AM EDT Feliciano Garcia [facility] LAB BLOOD ORDERABLES Final Resu lt [facility] [address] * Giardia Cryptosporidium Antigens (Feces) (01/28/2025 9:27 PM EDT) [facility] Cryptosporidium Ag Negative Negative 2024 8:03 AM EDT [facility] Giardia Ag Negative Negative 01/29/2025 8:03 AM EDT [facility] Comment: Detection of Giardia and Cryptosporidium antigen is more sensitive and specific than microscopy. Because antigens are shed continuously, repeat testing is rarely warranted. Feces 01/28/2025 9:27 PM EDT 01/28/2025 10:07 PM EDT Comment:F Ruby Chiang MD MICROBIOLOGY - GENERAL ORDERAB LES Final Result Performing Organization Address [facility] Co de Phone Number [facility] [address] [facility]. [address] * Ova and Parasite Comprehensive w/Giardia (Feces) (01/28/2025 9:27 PM EDT) O & P Method: Concentration and Trichrome Stain [facility] Results No Amoeba, Ova, Or Parasites Seen. -- O and P examination of additional specimens is recommended only for symptomatic patients, immunosuppressed patients or those with an appropriate travel history. [facility] Feces FECES / Unknown 01/28/2025 9 :27 PM EDT 01/28/2025 10:07 PM EDT Comment:F Ruby Chiang MD MICROBIOLOGY - GENERAL ORDERAB LES Final Result Performing Organization Address [facility] de Phone Number [facility] [address] [facility]. [address] * Clostridium Difficile Toxin A/B Antigen (01/28/2025 1:21 PM EDT) CDIFF Tox AGN Negative Negative 01/28/2025 10:35 PM EDT [facility] Comment:C. difficile nucleic acid testing is positive but toxin antigen testing is negative. Please note that antigen testing is less sensitive than nucleic acid testing and cannot distinguish disease from colonization. Interpret results with caution and in the context of the clinical presentation of the patient. Stool, Liquid 01/28/2025 1:2 1 PM EDT 01/28/2025 9:59 PM EDT Comment:F Feliciano Gomez [employer] BODY FLUIDS AND STOOLS ORDERABL ES Final Result Performing Organization Address [facility] Co de Phone Number [facility] [address] [place] [address], [facility] * Phosphatidylethanol Confirmation, B (01/28/2025 7:14 AM EDT) Only the most recent of3 resultswithin the time period is included. PETH 16:0/18.1 (POPETH) 394 Cutoff: 10 ng/mL 01/30/2025 9:58 AM EDT [facility] Comment: Phosphatidylethanol (PEth) homologues [...] Cutoff: 10 ng/mL 01/30/2025 9:58 AM EDT [facility] Comment: PEth 16:0/18:2 (PLPEth) Reference ranges are not well established PEth Interpretation Positive. 01/30 9:58 AM EDT [facility] Comment: ADDITIONAL INFORMATION This report is intended for use in clinical monitoring and management of patients. It is not intended for use in employment-related testing. This test was developed and its performance characteristics determined by [facility] in a manner consistent with CLIA requirements. This test has not been cleared or approved by the U.S. Food and Drug Administration. Test Performed by: [facility] - [address] [address] [employer]: Kathy Ortiz Ph.D.; CLIA# [id number] Whole Blood 01/28/2025 7:14 AM EDT 01/30/2025 9:58 AM EDT us Carlton Hill MD LAB BLOOD ORDERABLES Final Result [facility] [address] [place] [address], [facility] * CT Head WO contrast (01/28/2025 12:35 [...] Detected Not Detected 01/28/2025 3:11 AM EDT [facility] Shigella species Not Detected Not Detected 01/28/2025 3:11 AM EDT [facility] Vibrio Group (Vibrio cholerae, Vibrio parahaemolyticus) Not Detected Not Detected 01/28/2025 3:11 AM EDT [facility] Yersinia enterocolitica Not Detected Not Detected 01/28/2025 3:11 AM EDT [facility] Shiga toxin 1 Not Detected Not Detected 01/28/2025 3:11 AM EDT [facility] Shiga toxin 2 Not Detected Not Detected 01/28/2025 3:11 AM EDT [facility] Norovirus Not Detected Not Detected 01/28/2025 3:11 AM EDT [facility] Rotavirus Not Detected Not Detected 01/28/2025 3:11 AM EDT [facility] Comment: The Enteric Pathogen [...] Final Result [facility] [address] [place] [address], [facility] * Respiratory viral panel (01/27/2025 9:30 PM EDT) Pathologist [facility] Adenovirus Not Detected Not Detected 01/28/2025 12:20 AM EDT [facility] Coronavirus (229E,HKU1,NL63,OC 43) Not Detected Not Detected 01/28/2025 12:20 AM EDT [facility] SARS-CoV-2 Not Detected Not Detected 01/28/2025 12:20 AM EDT [facility] Human Metapneumovirus Not Detected Not Detected 01/28/2025 12:20 AM EDT [facility] Human Rhinovirus/Enterov irus Not Detected Not Detected 01/28/2025 12:20 AM EDT [facility] Influenza A Not Detected Not Detected 01/28/2025 12:20 AM EDT [facility] Influenza A H1 Not Detected Not Detected 01/28/2025 12:20 AM EDT [facility] Influenza A/H1-2009 Not Detected Not Detected 01/28/2025 12:20 AM EDT [facility] Influenza A H3 Not Detected Not Detected 01/28/2025 12:20 AM EDT [facility] Influenza B Not Detected Not Detected 01/28/2025 12:20 AM EDT [facility] Parainfluenza 1 Not Detected Not Detected 01/28/2025 12:20 AM EDT [facility] Parainfluenza 2 Not Detected Not Detected 01/28/2025 12:20 AM EDT [facility] Parainfluenza 3 Not Detected Not Detected 01/28/2025 12:20 AM EDT [facility] Parainfluenza 4 Not Detected Not Detected 01/28/2025 12:20 AM EDT [facility] Resp. Syncycial Virus A Not Detected Not Detected 01/28/2025 12:20 AM EDT [facility] Resp. Syncycial Virus B Not Detected Not Detected 01/28/2025 12:20 AM EDT [facility] Chlamydia pneumoniae Not Detected Not Detected 01/28/2025 12:20 AM EDT [facility] Mycoplasma pneumoniae Not Detected Not Detected 01/28/2025 12:20 AM EDT [facility] Comment: The Respiratory Viral-Bacterial [...] sent to the [facility] in accordance with state requirements. For a fact sheet for healthcare providers, see https://www.fda.gov/media/485619/download. For a fact sheet for patients, see https://www.fda.gov/media/369917/download. Nasopharyngeal Swab NASOPHARYNGEAL STRUCTURE / Unknown 01/27/2025 9:30 PM EDT 01/27/2025 10:20 PM EDT us Shelby Blanco MD BODY FLUIDS AND STOOLS ORDERABLE S Final Result [facility] [address] [facility] [place] [address], [facility] * Lactic acid, venous, whole blood (01/27/2025 9:30 PM EDT) [facility] Lactate, Shakeel 1.4 0.5 - 1.6 mmol/L 01/27/2025 9:42 PM EDT [facility] Blood, Venous 01/27/2025 9:3 0 PM EDT 01/27/2025 9:39 PM EDT Pamela JACOME LAB BLOOD ORDERABLES Final Res ult Performing Organization Address City/[facility]/ZIP Co de Phone Number [facility] [address] [facility]. [address] * Histoplasma/Blastomyces Ag, EIA, U (01/27/2025 8:44 PM EDT) [facility] Histoplasma/Blasto myces Ag Result (Urine) Not Detected Not Detected 01/31/2025 11:06 AM EDT [facility] Comment: No antigen from Histoplasma or Blastomyces detected. False negative results may occur depending on extent of disease, and/or site of infection. Repeat testing on a new specimen if clinically indicated. Histoplasma/Blasto myces Ag Value (Urine) Not Detected ng/mL 01/31/2025 11:06 AM EDT [facility] Comment: ADDITIONAL INFORMATION This test was developed and its performance characteristics determined by [facility] in a manner consistent with CLIA requirements. This test has not been cleared or approved by the U.S. Food and Drug Administration. Test Performed by: [facility] - [address] [address] [employer]: Kathy Ortiz Ph.D.; CLIA# [id number] Urine URINE SPECIMEN / Unknown 01/27/2025 8:44 PM EDT 01/31/2025 11:06 AM EDT us Shelby Blanco MD URINE ORDERABLES Final Result [facility] [address] [place] [facility]. [address] * Strep Pneumo-Legionella Urine Antigen (01/27/2025 8:44 PM EDT) Strept Pneumo Ag Negative Negative 01/27/2025 11:12 PM EDT [facility] Legionella Antigen Negative Negative 01/27/2025 11:12 PM EDT [facility] Urine URINE SPECIMEN / Unknown 01/27/2025 8:44 PM EDT 01/27/2025 10:21 PM EDT Narrative [facility] - 01/27/2025 11:12 PM EDT Positive indicates detection of either Streptococcus pneumoniae antigen or Legionella pneumophila serogroup 1 antigen. Negative results do not rule out pneumococcal infection or infection with L. pneumophila serogroup 1, other serogroups of L. pneumophila, or other Legionella species. us Shelby Blanco MD URINE ORDERABLES Final Result [facility] [address] [facility]. [address] * (ABNORMAL) Urinalysis, Microscopic (01/27/2025 8:44 PM EDT) RBC, UA <1 0 - 3 /HPF 01/27/2025 9:32 PM EDT [facility] WBC, UA 1 0 - 5 /HPF 01/27/2025 9:32 PM EDT [facility] Hyaline Casts, UA 75(H) 0 - 2 /LPF 01/27/2025 9:32 PM EDT [facility] Mucus, UA Present(A) None Seen /HPF 01/27/2025 9:32 PM EDT [facility] Urine 01/27/2025 8:44 PM EDT 01/27/2025 9:01 PM EDT us Pamela JACOME URINE ORDERABLES Final Result [facility] [address] [facility]. [address] * (ABNORMAL) Urinalysis-Macroscopic w/Rfx to Microsco (01/27/2025 8:44 PM EDT) Color, UA Yellow Yellow,Straw 01/27/2025 9:32 PM EDT [facility] Clarity, UA Clear Clear 01/27/2025 9:32 PM EDT [facility] Specific [place], UA 1.015 1.005 - 1.035 01/27/2025 9:32 PM EDT [facility] pH, UA 5.5 5.0 - 8.0 01/27/2025 9:32 PM EDT [facility] Protein, UA 30(A) Negative mg/dL 01/27/2025 9:32 PM EDT [facility] Glucose, UA Negative Negative mg/dL 01/27/2025 9:32 PM EDT [facility] Ketones, UA 20(A) Negative mg/dL 01/27/2025 9:32 PM EDT [facility] Bilirubin, UA Negative Negative 01/27/2025 9:32 PM EDT [facility] Blood, UA Negative Negative 01/27/2025 9:32 PM EDT [facility] Nitrite, UA Negative Negative 01/27/2025 9:32 PM EDT [facility] Urobilinogen, UA <2.0 0.2 - 1.9 mg/dL 01/27/2025 9:32 PM EDT [facility] Leukocyte Esterase, UA Negative Negative 01/27/2025 9:32 PM EDT [facility] Urine 01/27/2025 8:44 PM EDT 01/27/2025 8:53 PM EDT Pamela JACOME URINE ORDERABLES Final Result [facility] [address] * Histoplasma/Blastomyces Ag, EIA, S (01/27/2025 8:20 PM EDT) Histoplasma/Blasto myces Ag Result (Serum) Not Detected Not Detected 01/30/2025 12:49 PM EDT [facility] Comment: No antigen from Histoplasma or Blastomyces detected. False negative results may occur depending on extent of disease, and/or site of infection. Repeat testing on a new specimen if clinically indicated. Histoplasma/Blasto myces Ag Value (Serum) Not Detected ng/mL 01/30/2025 12:49 PM EDT [facility] Comment: ADDITIONAL INFORMATION This test was developed and its performance characteristics determined by [facility] in a manner consistent with CLIA requirements. This test has not been cleared or approved by the U.S. Food and Drug Administration. Test Performed by: [facility] [address] [place] [address] [employer]: Kathy Ortiz Ph.D.; CLIA# [id number] Serum SERUM SPECIMEN / Unknown 01/27/2025 8:20 PM EDT 01/30/2025 12:49 PM EDT Comment:S Shelby Blanco MD LAB BLOOD ORDERABLES Final Resul t [facility] LAB [address] * Fungitell (01/27/2025 8:20 PM EDT) Fungitell Value <31.25 pg/mL 4:19 PM EDT [facility] Reference Value Comment 4:19 PM EDT [facility] Comment:Negative: <60, Posit bradley: >/=60 Clinical Relevance Notes 2024 4:19 PM EDT [facility] Comment: The Fungitell test is indicated [...] Cryptococcus, which produce very low levels of (1,3)-dkie-B-yevpou. This test will not detect the zygomycetes, such as Absidia, Blastomyces, Mucor, and Rhizopus, which are not known to produce (1,3)-yvyb-Z-aoesvt. In addition, the yeast phase of Blastomyces dermatitidis produces little (1,3)-uxsd-W-bqosim and may not be detected by the assay. Disclaimer: Notes 02/02/2025 4:19 PM EDT [facility] Comment: This test has been cleared or approved for diagnostic use by the U.S. Food and Drug Administration. Performance characteristics were verified by [employer]. Electronically signed by: Comment 02/02/2025 4:19 PM EDT [facility] Comment:Usha Landin Result Comment 02/03/20 4:19 PM EDT [facility] Comment:Negative Interpretation Notes 02/02/2025 4:19 PM EDT [facility] Comment: (1,3) Prvy-K-Novxrd was NOT DETECTED in the sample. Reasons for negative results could include the patient being in the early stage of infection before detectable levels of (1,3) Pcqr-R-Wmafgp are present. Clinical diagnosis should be made in the context of the patient's complete medical history. Serum 01/27/2025 8:20 PM EDT 02/02/2025 5:07 PM EDT Narrative [facility] - 02/02/2025 5:07 PM EDT PERFORMED AT: [facility] [address] [id number] NIGHT BAKER: Cyril Porter, PhD PHONE: [phone] us Shelby Blanco MD LAB BLOOD ORDERABLES Final Resul t [facility] [address] [place] [address], [facility] * Cryptococcus Ag (01/27/2025 8:20 PM EDT) Crypto Ag, Ser Negative Negative 01/27/2025 11:41 PM EDT [facility] Crypto Ag Titer, Ser Not Applicable 01/27/2025 11:41 PM EDT [facility] Serum SERUM SPECIMEN / Unknown 01/27/2025 8:20 PM EDT 01/27/2025 10:04 PM EDT Comment:S Shelby Blanco MD LAB BLOOD ORDERABLES Final Resul t Performing Organization Address [facility]/ZIP Co de Phone Number [facility] [address]Hakeem Salas [facility]. [address] * BK PCR, Blood (Renal Txp and BMT only) (01/27/2025 8:20 PM EDT) BKV IU DNA Quant, Blood Not Detected IU/mL 01/29/2025 1:48 PM EDT [facility] Comment: Beginning August 23, 2021, [facility] has transitioned BK viral load [...] log 10 IU/mL 01/29/2025 1:48 PM EDT [facility] Comment:BKV DNA Not Detected Plasma 01/27/2025 8:20 PM EDT 01/27/2025 9:49 PM EDT Shelby Blanco MD LAB BLOOD ORDERABLES Final Resul t [facility] [address] [facility]. [address] * Katie-Schafer Virus (EBV) PCR (01/27/2025 8:20 PM EDT) EBV DNA, Quantitative PCR Not Detected IU/mL 01/28/2025 10:54 AM EDT [facility] EBV DNA, Log10 See Note log 10 IU/mL 01/28/2025 10:54 AM EDT [facility] Comment: Beginning September 05, 2022, [facility] has transitioned EBV viral load [...] BLOOD ORDERABLES Final Resul t [facility] [address] [place] [address], [facility] * Adenovirus PCR (01/27/2025 8:20 PM EDT) Adenovirus, Quantitative PCR 0 0 - 0 copies/mL 02/03/2025 1:12 PM EDT [facility] Comment: Testing performed by [facility], [address] [place] [address]. This test(s) was developed and its performance characteristics determined and validated by the Department of Pathology and Laboratory Medicine at [facility]. It has not been cleared or [...] Final Resul t Performing Organization Address [facility] Co de Phone Number [facility] [address] [facility]. [address] * Aspergillus Ag (01/27/2025 8:20 PM EDT) Aspergillus Ag. 0.03 0.00 - 0.49 Index 01/30/2025 5:54 PM EDT [facility] Serum SERUM SPECIMEN / Unknown 01/27/2025 8:20 PM EDT 01/31/2025 4:23 AM EDT Comment:S us Shelby Blanco MD BODY FLUIDS AND STOOLS ORDERABLE S Final Result Performing Organization Address [facility] Co de Phone Number [facility] [address] [place] [address]. [address] * Blood culture-Peripheral (Blood) (01/27/2025 8:20 PM EDT) Only the most recent of2 resultswithin the time period is included. Culture Result No Growth After 5 Days [facility] Blood BLOOD SPECIMEN / Unknown 01/27/2025 8:20 PM EDT 01/27/2025 9:57 PM EDT us Pamela JACOME MICROBIOLOGY - GENERAL ORDERAB LES Final Result Performing Organization Address [facility] Co de Phone Number [facility]. [address] * (ABNORMAL) Lipase (01/27/2025 8:20 PM EDT) Lipase 3(L) 4 - 82 U/L 01/27/2025 9:0 3 PM EDT [facility] Plasma 01/27/2025 8:20 PM EDT 01/27/2025 8:34 PM EDT Pamela Pattersonzina JACOME LAB BLOOD ORDERABLES Final Res ult Performing Organization Address City/[facility]/ZIP Co de Phone Number [facility] [address] * Hemoglobin A1c (01/27/2025 8:20 PM EDT) Hemoglobin A1C 4.0 4.0 - 5.6 % 01/27/2025 11:49 PM EDT [facility] Comment: Hemoglobin A1c Interpretation [...] PM EDT 01/27/2025 8:57 PM EDT Narrative [facility] - 01/27/2025 11:49 PM EDT A1C project?->Yes Pamela Pattersonzina MS LAB BLOOD ORDERABLES Final Res ult Performing Organization Address City/[facility]/ZIP Co de Phone Number [facility] [address] * Basic metabolic panel (01/27/2025 8:20 PM EDT) Sodium 136 133 - 146 mmol/L 01/27/2025 9:03 PM EDT [facility] Potassium 4.0 3.5 - 5.3 mmol/L 01/27/2025 9:03 PM EDT [facility] Chloride 100 98 - 110 mmol/L 01/27/2025 9:03 PM EDT [facility] CO2 25 21 - 33 mmol/L 01/27/2025 9:03 PM EDT [facility] Anion Gap 11 3 - 16 mmol/L 01/27/2025 9:03 PM EDT [facility] BUN 16 7 - 25 mg/dL 01/27/2025 9:03 PM EDT [facility] Creatinine 1.02 0.60 - 1.30 mg/dL 01/27/2025 9:03 PM EDT [facility] Glucose 93 70 - 100 mg/dL 01/27/2025 9:03 PM EDT [facility] Calcium 9.7 8.6 - 10.3 mg/dL 01/27/2025 9:03 PM EDT [facility] Osmolality, Calculated 283 278 - 305 mOsm/kg 01/27/2025 9:03 PM EDT [facility] EGFR >90 01/27/2025 9:03 PM EDT [facility] Comment: As of 2021, the estimated [...] JACOME LAB BLOOD ORDERABLES Final Res ult [facility] [address] [place] [address], [facility] * X-ray Chest PA and [...] DIAGNOSTIC IMAGING ORDERAB LES Final Result * Phatidylethanol (PEth) (01/14/2025 11:03 AM EDT) Phosphatidylethanol (PEth) Positive 311 Whole Blood Historical Provider LAB BLOOD ORDERABLES Denisse l Result * Urine culture (01/06/2025 12:23 PM EDT) Only the most recent of4 resultswithin the time period is included. Urine Culture, Comprehensive no growth URINE SPECIMEN / Unknown Historical Provider MICROBIOLOGY - GENERAL OR DERABLES Final Result * Protime-INR (12/23/2024 9:53 AM EDT) Only the most recent of4 resultswithin the time period is included. [facility] INR 0.94 0.9 - 1.1 Protime 10.5 Plasma Harvey Domínguez III, MD LAB BLOOD ORDERABLE S Final Result * Hepatitis B Virus (HBV), PCR, Quant (11/25/2024 8:42 AM EDT) [facility] Hep B Viral DNA IU/ML Not Detected IU/mL 11/28/2024 10:09 AM EDT [facility] Comment:Test methodology for HBV DNA quantification is an FDA-approved nucleic acid amplification assay. The lower limit of quantitation (LLOQ) is 10 IU/mL. The linear range of the assay is 10-1,000,000,000 IU/mL. The limit of detection (LoD) for plasma is 2.7 IU/mL. The reference range is Not Detected. log 10 HBV as IU/mL See Note log 10 IU/mL 11/28/2024 10:09 AM EDT [facility] Comment:HBV DNA not detected . Plasma 11/25/2024 8:42 AM EDT 11/25/2024 10:59 AM EDT Narrative [facility] - 11/28/2024 10:09 AM EDT One time lab order to be collected with next set of standing liver transplant labs. UNOS requirement. Please fax all results to [phone]. Call critical results to [phone]. Harvey Domínguez III, MD LAB BLOOD ORDERABLE S Final Result [facility] [address] [place] [address], [facility] * HIV-1 RNA, Quantitative, PCR (11/25/2024 8:42 AM EDT) [facility] HIV 1 Copies Not Detected copies/mL 11/26/2024 10:57 AM EDT [facility] Comment:Test methodology for HIV-1 RNA quantification is an FDA-approved nucleic acid amplification assay. The Lower Limit of Quantitation (LLoQ) is 20 copies/mL. The linear range is 20- to 10,000,000 copies/mL. The Limit of Detection (LoD) is 13.2 copies/mL. The reference range is Not Detected. HIV [id number] See Note [id number] /mL 11/26/2024 10:57 AM EDT [facility] Comment:HIV-1 RNA not detect ed. Plasma 11/25/2024 8:42 AM EDT 11/25/2024 10:59 AM EDT [facility] - 11/26/2024 10:57 AM EDT One time lab order to be collected with next set of standing liver transplant labs. UNOS requirement. Please fax all results to [phone]. Call critical results to [phone]. us Harvey Domínguez III, MD LAB BLOOD ORDERABLE S Final Result [facility] [address] [place] [address], [facility] * Hepatitis C RNA, Quantitative PCR (11/25/2024 8:42 AM EDT) Pathologist [facility] International Units Not Detected IU/mL 11/27/2024 11:35 AM EDT [facility] Comment:Test methodology for HCV RNA quantification is an FDA-approved nucleic acid amplification assay. The Lower Limit of Quantitation (LLOQ) is 15 IU/mL. The linear range of the assay is 15-100,000,000 IU/mL. The Limit of Detection (LoD) is 12.0 IU/mL for EDTA plasma. The reference range is Not Detected. IU log10 See Note log 10 IU/mL 11/27/2024 11:35 AM EDT [facility] Comment:HCV RNA not detected . Plasma 11/25/2024 8:42 AM EDT 11/25/2024 10:59 AM EDT Narrative [facility] - 11/27/2024 11:35 AM EDT One time lab order to be collected with next set of standing liver transplant labs. UNOS requirement. Please fax all results to [phone]. Call critical results to [phone]. us Harvey Domínguez III, MD LAB BLOOD ORDERABLE S Final Result [facility] [address] [place] [id number] * (ABNORMAL) Comprehensive metabolic panel (11/25/2024 8:42 AM EDT) Sodium 141 133 - 146 mmol/L 11/25/2024 10:20 AM EDT [facility] Potassium 4.3 3.5 - 5.3 mmol/L 11/25/2024 10:20 AM EDT [facility] Chloride 106 98 - 110 mmol/L 11/25/2024 10:20 AM EDT [facility] CO2 23 21 - 33 mmol/L 11/25/2024 10:20 AM EDT [facility] Anion Gap 12 3 - 16 mmol/L 11/25/2024 10:20 AM EDT [facility] BUN 43(H) 7 - 25 mg/dL 11/25/2024 10:20 AM EDT [facility] Creatinine 1.59(H) 0.60 - 1.30 mg/dL 11/25/2024 10:20 AM EDT [facility] Glucose 93 70 - 100 mg/dL 11/25/2024 10:20 AM EDT [facility] Calcium 10.0 8.6 - 10.3 mg/dL 11/25/2024 10:20 AM EDT [facility] Total Bilirubin 0.7 0.0 - 1.5 mg/dL 11/25/2024 10:20 AM EDT [facility] AST 9(L) 13 - 39 U/L 11/25/2024 10:20 AM EDT [facility] ALT 22 7 - 52 U/L 11/25/2024 10:20 AM EDT [facility] Alkaline Phosphatase 198(H) 36 - 125 U/L 11/25/2024 10:20 AM EDT [facility] Total Protein 7.0 6.4 - 8.9 g/dL 11/25/2024 10:20 AM EDT [facility] Albumin 4.5 3.5 - 5.7 g/dL 11/25/2024 10:20 AM EDT [facility] Osmolality, Calculated 303 278 - 305 mOsm/kg 11/25/2024 10:20 AM EDT [facility] EGFR 56 11/25/2024 10:20 AM EDT [facility] Comment:As of 2021, the [...] BLOOD ORDERABLES Final Resu lt [facility] [address] [place] [id number] * (ABNORMAL) Post Kidney Transplant Urine Culture (11/11/2024 9:13 AM EDT) Culture Result Enterococcus faecium(A) [facility] Comment: <1,000 cfu/mL Identified by MALDI-TOF MS No Further Workup Midstream Urine URINE SPECIMEN / Unknown 11/11/2024 9:13 AM EDT 11/11/2024 10:17 AM EDT Caron Santos CNP MICROBIOLOGY - GENERAL OR DERABLES Final Result Performing Organization Address City/[facility]/ZIP Co de Phone Number [facility] [address] [facility]. [address] * Protein / creatinine ratio, urine (11/11/2024 9:13 AM EDT) Creatinine, Urine 71.40 mg/dL 11/11/2024 10:38 AM EDT [facility] Comment:Reference range not established for this test. Total Protein, Ur 28 mg/dL 11/11/2024 10:38 AM EDT [facility] Comment:Reference range not established for this test. Prot/Creat Ratio, Ur 0.39 ratio 11/11/2024 10:38 AM EDT [facility] Urine 11/11/2024 9:13 AM EDT 11/11/2024 10:12 AM EDT us Caron Santos CNP URINE ORDERABLES Final Re sult Performing Organization Address [facility] Co de Phone Number [facility] [address] [facility]. [address] * Hepatitis C Antibody (10/25/2024 10:17 PM EDT) Pathologist [facility] HCV Ab Nonreactive Nonreactive 10/25/2024 11:16 PM EDT [facility] Comment:Health Department no tified in accordance with reportable infectious disease guidelines. Serum 10/25/2024 10:1 7 PM EDT 10/25/2024 10:17 PM EDT Narrative [facility] - 10/25/2024 11:16 PM EDT Antibodies to HCV not detected; does not exclude the possibility of exposure to HCV. us Aysha Gill MD LAB BLOOD ORDERABLES F inal Result Performing Organization Address [facility]/ZIP Co de Phone Number [facility] [address] [facility]. [address] * TSH (Thyroid Stimulating Hormone) (10/07/2024 6:37 PM EDT) TSH 0.81 0.45 - 4.12 uIU/mL 10/07/2024 8:17 PM EDT [facility] Serum 10/07/2024 6:37 PM EDT 10/07/2024 6:50 PM EDT us Gerri Peterson MD LAB BLOOD ORDERABLES Final Resu lt [facility] [address] [place] [address], [facility] from Last 3 Months or Most Recently Relevant to Health Maintenance Additional Health Concerns Infection Onset Date Last Indicated C. difficile 01/28/2025 01/28/2025 Insurance [facility] [address] [place], [place] [address] [facility] [employer] Member Subscriber Plan / Payer (Ef fective 2024-2025) Name:Julien Anderson Relation to Subscriber:Self Name:Julien Anderson Payer ID:[id number] Group ID:Not on file Type:Transplant Address: [address] [place] [address] Advance Directives For more information, please contact: [phone] * Full Code (Latest Code Status on [...] 9:42 AM 09/09/2024 10:30 PM Care Teams Wood And Hardware Outfitter Relationship Specialty Start Date End Date Enedina Mcguire NP [address] [place] [address] PCP - General Internal Medicine 10/05/24 Maureen Pantoja, ЮЛИЯ Txp Post Coordinator Transplant Hepatology 10/28/24
--- OUTSIDE RECORDS SUMMARY | 2025-02-10 09:32 | XMS_ITS | Encounter Summary ---
Author Organization [facility] Address [facility] [place] [address] Care Team Providers Care Diagnostic Imaging Manager Name Role Phone Enedina Mcguire NP Primary Care Provider + [phone] Maureen Pantoja RN Unavailable Unavail able Source [...] release of HIV test results or diagnoses. [id number] Health Encounter Details Date Type Department Care [...] Recorded In the past 12 months has [employer], [employer], oil, or water [employer] threatened to shut off services in [...] living in a fpc (including now)? No 01/28/2025 Yearly Questionnaire Answer [...] Date End Date Enedina Mcguire NP [address] [place] [address] PCP - General Internal Medicine 10/05/24 Maureen Pantoja, ЮЛИЯ Txp Post Coordinator Transplant Hepatology 10/28/24 documented as of this encounter
--- OUTSIDE RECORDS SUMMARY | 2025-02-10 09:32 | XMS_ITS | Encounter Summary ---
Author Organization [facility] Address [address] [place] [address] Care Team Providers Care Senior Network Administrator Name Role Phone Enedina Mcguire NP Primary Care Provider [phone] Maureen Pantoja RN Unavailable Unavail able Source [...] release of HIV test results or diagnoses. [id number] Reason for Visit * Reason Comments Medication Refill Encounter Details Date Type Department Care Team (Late st Contact Info) Description 01/17/2025 Refill [facility] Liver Transplant at [address] [address] Harvey Domínguez III, MD [address] [place] [phone] Encounter for therapeutic drug monitoring; S/P liver transplant ([facility]); Hypomagnesemia; Kidney transplant recipient; Hypertension, unspecified type; [...] of this encounter Care Teams Senior Network Administrator Relationship Specialty Start Date End Date Enedina Mcguire NP [address] [place] [address] PCP - General Internal Medicine 10/05/24 Maureen Pantoja, RN Txp Post Coordinator Transplant Hepatology 10/28/24 documented as of this encounter
--- OUTSIDE RECORDS SUMMARY | 2025-02-10 09:32 | XMS_ITS | Encounter Summary ---
Author Organization [facility] Address [address] [place] [address] Care Team Providers Care Ux Information Architect Name Role Phone Enedina Mcguire NP Primary Care Provider + [phone] Maureen Pantoja RN Unavailable Unavail able Source [...] release of HIV test results or diagnoses. [id number] Reason for Visit * Reason Comments Results Encounter Details Date Type Department Care Team (Riky st Contact Info) Description 01/16/2025 Telephone [facility] Liver Transplant at [address] [address] Maureen Pantoja, RN Results Social [...] In the past 12 months has e [employer], gas, oil, or water [employer] threatened to shut off services in your [...] documented as of this encounter Care Teams Ux Information Architect Relationship Specialty Start Date End Date Enedina Mcguire NP [address] [place] [address] PCP - General Internal Medicine 10/05/24 Maureen Pantoja, ЮЛИЯ Txp Post Coordinator Transplant Hepatology 10/28/24 documented as of this encounter
--- OUTSIDE RECORDS SUMMARY | 2025-02-10 09:32 | XMS_ITS | Encounter Summary ---
Author Organization [facility] Address [address] [place] [address] Care Team Providers Care Assistant Professor Of Dietetics Name Role Phone Enedina Mcguire APRN Primary Care Provider + Reason for Visit * Reason Comments Med Refill Encounter Details Date Type Department Care Team ([facility] st Contact Info) Description 12/12/2024 Refill [facility] INTERNAL MEDICINE [address] [place] [address] Enedina Mcguire APRN [address] [place], [place] [id number] Acquired hypothyroidism; Secondary esophageal varices without bleeding [...] 30 days sober on 08-05-2024 [facility] Utilities Answer Date Recorded In the past 12 months has [employer], gas, oil, or water [employer] threatened to shut off services in your [...] Brief Depression Severity Measure Score 0 10/02/2022 [facility] - Occupational Stress Questionnaire Answer Date [...] GED or equivalent No 07/09/2024 Preferred Language Kittitian 07/09/2024 PHQ-2 Answer Date Recorded Patient Health [...] Description 04/02/2025 2:15 PM EST Office Visit [facility] PAIN [facility]NAGEMENT [address] [address] Vazquez Christie PA-C [address] [place] [address] documented as of this encounter Visit Diagnoses Diagnosis Acquired hypothyroidism Unspecified hypothyroidism Secondary esophageal varices without bleeding documented in this encounter Additional Health Concerns Assessment Noted Time PHQ-2 Depression Total Score: 1 12/31/19 24 3:25 PM EDT documented as of this encounter Care Teams Assistant Professor Of Dietetics Relationship Specialty Start Date End Date Enedina Mcguire APRN [address] [place] [id number] PCP - General Nurse Practitioner 10/27/24 documented as of this encounter
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
--- OUTSIDE RECORDS SUMMARY | 2025-02-10 09:32 | XMS_ITS | Encounter Summary ---
Author Organization [facility] Address [address] [place] [address] Care Team Providers Care Aluminum Siding Mechanic Name Role Phone Enedina Mcguire NP Primary Care Provider +[phone] Maureen Pantoja RN Unavailable Unavail able Source [...] release of HIV test results or diagnoses. [id number] Reason for Visit * Reason Comments Medication Refill Encounter Details Date Type Department Care Team (Late st Contact Info) Description 12/21/2024 Refill [facility] Liver Transplant at [address] [address] Lydia Sanchez MD [address] [place] [address] Liver/[place] [address] Encounter for therapeutic drug monitoring; S/P liver transplant ([facility]); Hypomagnesemia; Kidney transplant recipient; Hypertension, unspecified [...] for therapeutic drug monitoring S/P liver transplant ([facility]) Hypomagnesemia Disorders of magnesium metabolism Kidney [...] as of this encounter Care Teams Aluminum Siding Mechanic Relationship Specialty Start Date End Date Enedina Mcguire NP [address] [place] [address] PCP - General Internal Medicine 10/05/24 Maureen Pantoja, RN Txp Post Coordinator Transplant Hepatology 10/28/24 documented as of this encounter
--- OUTSIDE RECORDS SUMMARY | 2025-02-10 09:32 | XMS_ITS | Encounter Summary ---
Author Organization [facility] Address [address] [place] [address] Care Team Providers Care Mail Forwarding System Markup Clerk Name Role Phone Enedina Mcguire NP Primary Care Provider [phone] Maureen Pantoja RN Unavailable Unavail able Source [...] release of HIV test results or diagnoses. [id number] Reason for Visit * Reason Comments Medication Refill Encounter Details Date Type Department Care Team (Late st Contact Info) Description 02/08/2025 Refill [facility] Liver Transplant at [address] [address] Harvey Domínguez III, MD [address] [place] [address] Social History Tobacco Use Types Packs/Day Years Used Date Smoking Tobacco: Former Cigarettes Smokeless Tobacco: Current Alcohol Use Standard Drinks/Week Comments Yes 0 (1 standard drink = 0.6 oz pure alcohol) History of alcohol abuse, reports no use in 3 week- typically endorses use as 4 glasses of wine a days Utilities Answer Date Recorded In the past 12 months has [employer], gas, oil, or water [employer] threatened to shut off services in your [...] [place] [facility] (including [facility])? No 01/28/2025 Yearly Questionnaire Answer [...] Date Last Indicated Resolved Time C. difficile 01/28/2025 01/28/2025 Assessment Noted Time PHQ-9 Depression Total Score: 2 12/11/19 9:00 AM EDT documented as of this encounter Care Teams Mail Forwarding System Markup Clerk Relationship Specialty Start Date End Date Enedina Mcguire NP [address] [place] [address] PCP - General Internal Medicine 10/05/24 Maureen Pantoja, ЮЛИЯ Txp Post Coordinator Transplant Hepatology 10/28/24 documented as of this encounter
--- OUTSIDE RECORDS SUMMARY | 2025-02-10 09:32 | XMS_ITS | Encounter Summary ---
Author Organization [facility] Address [address] [place] [address] Care Team Providers Care Wound Care Nurse Name Role Phone Enedina Mcguire NP Primary Care Provider + [phone] Maureen Pantoja RN Unavailable Unavail able Source [...] release of HIV test results or diagnoses. [id number] Health Encounter Details Date Type Department Care Team (Late st Contact Info) Description 01/15/2025 Chart Note [facility] Liver Transplant at [address] [place] [phone] Marlene Ro MA 01/14 Labs entered from [facility] Social History Tobacco Use Types Packs/Day Years Used Date Smoking Tobacco: Former Cigarettes Smokeless Tobacco: Current Alcohol Use Standard Drinks/Week Comments Yes 0 (1 standard drink = 0.6 oz pure alcohol) History of alcohol abuse, reports no use in 3 week- typically endorses use as 4 glasses of wine a days Utilities Answer Date Recorded In the past 12 months has e [employer], gas, oil, or water [employer] threatened to shut off services in your [...] were not included. 01/14 Labs entered from [facility] documented in this encounter Plan of [...] Tacrolimus level (01/14/2025 10:53 AM EDT) Pathologist [facility] Tacrolimus Lvl 9.6 6 - 15 ng/mL Whole Blood Result [facility] Provider LAB BLOOD ORDERABLES Denisse l Result * (ABNORMAL) Magnesium (01/14/2025 10:53 AM EDT) [facility] Magnesium 1.2(A) 1.6 - 2.4 mg/dL Plasma Narrative Resulting Agency Comment [facility] Result [facility] LAB BLOOD ORDERABLES Denisse l Result * Renal Function Panel w/o EGFR (01/14/2025 10:53 AM EDT) [facility] Glucose 94 BUN 19 CO2 21 13 - 22 mmol/L Creatinine 1.00 Potassium 4.4 Sodium 140 Chloride 109 Phosphorus 4.8 2.5 - 4.9 mg/dL Calcium 9.5 EGFR 82 mg/dL Albumin 4.8 3.5 - 5.0 g/dL Blood Narrative Resulting Agency Comment [facility] Result [facility] LAB BLOOD ORDERABLES Denisse l Result * Creatinine, urine, random (01/14/2025 10:53 AM EDT) [facility] Creatinine, Urine 90 Urine Narrative Resulting Agency Comment [facility] Result [facility] Provider URINE ORDERABLES Final Re sult * Urinalysis w/Rfl to Microscopic (01/14/2025 10:53 AM EDT) [facility] Glucose, UA Negative Negative Ketones, UA Negative Negative Blood, UA Negative Negative Bilirubin, UA Negative Negative Urobilinogen, UA Normal Normal Protein, UA Negative Negative Nitrite, UA Negative Negative pH, UA 5.5 4.5 - 8.0 Specific [place], UA 1.020 1.005 - 1.030 Clarity, UA Clear Clear Color, UA Yellow Light Yellow, Yellow Urine Narrative Resulting Agency Comment [facility] Result [facility] Provider URINE ORDERABLES Final Re sult [...] 2.0 10^3/mL Blood Narrative Resulting Agency Comment [facility] Result [facility] LAB BLOOD ORDERABLES Denisse l Result * Urine Protein, Tot, Random (w/o Creat) (01/14/2025 10:53 AM EDT) Total Protein, Ur 13.0 Urine Narrative Resulting Agency Comment [facility] Result [facility] Provider URINE ORDERABLES Final Re sult * Hepatic Function Panel (01/14/2025 10:53 AM EDT) Bilirubin, Direct 0.2 Bilirubin, Indirect 0.5 Alkaline Phosphatase 49 ALT 15 AST 24 Total Bilirubin 0.7 Total Protein 6.8 Plasma Narrative Resulting Agency Comment [facility] Result [facility] Provider LAB BLOOD ORDERABLES Denisse [...] Date End Date Enedina Mcguire NP [address] [place] [address] PCP - General Internal Medicine 10/05/24 Maureen Pantoja, ЮЛИЯ Txp Post Coordinator Transplant Hepatology 10/28/24 documented as of this encounter
--- OUTSIDE RECORDS SUMMARY | 2025-02-10 09:32 | XMS_ITS | Encounter Summary ---
Author Organization [facility] Address [address] [place] [address] Care Team Providers Care Therapeutic Radiologist Name Role Phone Enedina Mcguire NP Primary Care Provider + [phone] Maureen Pantoja RN Unavailable Unavail able Source [...] release of HIV test results or diagnoses. [id number] Health Encounter Details Date Type Department Care Team (Late st Contact Info) Description 02/04/2025 Telephone [facility] Liver Transplant at [address] [address] Marlene Ro MA Social History [...] Recorded In the past 12 months has [employer], gas, oil, or water [employer] threatened to shut off services in your [...] in a group home (including now)? No 01/28/2025 Yearly Questionnaire Answer [...] Progress Notes * Marlene Ro MA - 02/04/2025 2:47 PM EDT Spoke with Main regarding a pending Peth order from 01/20. The Peth test was not collected, though Mainis unsure why, as it is included in his standing order set. This issue has been addressed previously. I also inquired about a Peth test from yesterday, which appears to have been missed again. Main willadd the order now. This information has been routed to CC ЮЛИЯ Reddy for awareness. documented in this encounter Plan of Treatment Not on file documented as of this encounter Visit Diagnoses Not on filedocumented in this encounter Additional Health Concerns Infection Onset Date Last Indicated Resolved Time C. difficile 01/28/2025 01/28/2025 Assessment Noted Time PHQ-9 Depression Total Score: 2 12/11/19 9:00 AM EDT documented as of this encounter Care Teams Therapeutic Radiologist Relationship Specialty Start Date End Date Enedina Mcguire NP [address] [place] [address] PCP - General Internal Medicine 10/05/24 Maureen Pantoja, ЮЛИЯ Txp Post Coordinator Transplant Hepatology 10/28/24 documented as of this encounter
--- OUTSIDE RECORDS SUMMARY | 2025-02-10 09:32 | XMS_ITS | Encounter Summary ---
Author Organization [facility] Address [address] [place] [address] Care Team Providers Care Sliver Lap Tender Name Role Phone Enedina Mcguire NP Primary Care Provider + [phone] Maureen Pantoja RN Unavailable Unavail able Source [...] release of HIV test results or diagnoses. [id number] Health Encounter Details Date Type Department Care Team (Late st Contact Info) Description 12/17/2024 Chart Note [facility] Liver Transplant at [address] [place] [phone] Marlene Ro MA 12/16 Labs entered [facility] Social History Tobacco Use Types [...] In the past 12 months has e [employer], gas, oil, or water [employer] threatened to shut off services in [...] 12/17/2024 10:44 AM EDT 12/16 Labs entered [facility] documented in this encounter Plan of Treatment [...] 2.4 mg/dL Plasma Narrative Resulting Agency Comment [facility] Historical Provider MD LAB BLOOD ORDERABLES Denisse [...] Comment [facility] Result [facility] MD LAB BLOOD ORDERABLES Denisse l Result * Protime-INR (12/16/2024 10:05 AM EDT) Pathologist [facility] INR 0.95 0.9 - 1.1 Plasma Narrative Resulting Agency Comment [facility] Result [facility] MD LAB BLOOD [...] 4.8 10^3/mL Blood Narrative Resulting Agency Comment [facility] Result [facility] MD LAB BLOOD ORDERABLES Denisse l Result * Hepatic Function Panel (12/16/2024 10:05 AM EDT) Bilirubin, Direct 0.2 Bilirubin, Indirect 0.2 Alkaline Phosphatase 73 ALT 15 AST 19 Total Bilirubin 0.4 Total Protein 6.2 Plasma Narrative Resulting Agency Comment [facility] us [...] documented as of this encounter Care Teams Sliver Lap Tender Relationship Specialty Start Date End Date Enedina Mcguire NP [address] [place] [address] PCP - General Internal Medicine 10/05/24 Maureen Pantoja, ЮЛИЯ Txp Post Coordinator Transplant Hepatology 10/28/24 documented as of this encounter
--- OUTSIDE RECORDS SUMMARY | 2025-02-10 09:32 | XMS_ITS | Encounter Summary ---
Author Organization [facility] Address [address] [place] [address] Care Team Providers Care Wire Spring Relay Adjuster Name Role Phone Enedina Mcguire NP Primary Care Provider + [phone] Maureen Pantoja RN Unavailable Unavail able Source [...] release of HIV test results or diagnoses. [id number] Health Encounter Details Date Type Department Care Team (Late st Contact Info) Description 01/15/2025 Telephone [facility] Liver Transplant at [address] [address] Marlene Ro MA Social History [...] Recorded In the past 12 months has [employer], gas, oil, or water [employer] threatened to shut off services in your [...] AM EDT I spoke with Gavin at [facility] about the phosphatidylethanol order tied to the patient???s registration. Although the order was found, it wasn???t sent to phlebotomy, so no test was done on 01/14. Due to this recurring issue, I contacted the manufacturing supervisor, Gladys. We agreed I would notify the lab directly of one-time and standing orders and fax them at [phone] to prevent future errors. Gladys is also [...] as of this encounter Care Teams Wire Spring Relay Adjuster Relationship Specialty Start Date End Date Enedina Mcguire NP [address] [place] [address] PCP - General Internal Medicine 10/05/24 Maureen Pantoja, RN Txp Post Coordinator Transplant Hepatology 10/28/24 documented as of this encounter
--- OUTSIDE RECORDS SUMMARY | 2025-02-10 09:32 | XMS_ITS | Encounter Summary ---
Author Organization [facility] Address [address] [place] [address] Care Team Providers Care Beef Trimmer Name Role Phone Enedina Mcguire NP Primary Care Provider + [phone] Maureen Pantoja RN Unavailable Unavail able Source [...] release of HIV test results or diagnoses. [id number] Health Encounter Details Date Type Department Care Team (Late st Contact Info) Description 12/23/2024 Chart Note [facility] Liver Transplant at [address] [place] [phone] Maureen Pantoja, sample examiner results from 12/23/24 entered from [facility]. Social History Tobacco Use Types Packs/Day Years Used Date Smoking Tobacco: Former Cigarettes Smokeless Tobacco: Current Alcohol Use Standard Drinks/Week Comments Yes 0 (1 standard drink = 0.6 oz pure alcohol) History of alcohol abuse, reports no use in 3 week- typically endorses use as 4 glasses of wine a days Utilities Answer Date Recorded In the past 12 months has [employer], gas, oil, or water [employer] threatened to shut off services in [...] EDT Lab results from 12/23/24 entered from [facility]. documented in this encounter Plan of Treatment [...] w/o EGFR (12/23/2024 9:53 AM EDT) Pathologist [facility] Glucose 88 BUN 19 CO2 27(A) 13 - 22 mmol/L Creatinine 0.80 Potassium 4.2 Sodium 138 Chloride 105 Phosphorus 5.2(A) 2.5 - 4.9 mg/dL Calcium 9.2 EGFR 107 mg/dL Albumin 4.4 3.5 - 5.0 g/dL Blood us Harvey Domínguez III, MD LAB BLOOD ORDERABLE S Final Result * Protime-INR (12/23/2024 9:53 AM EDT) Pathologist [facility] INR 0.94 0.9 - 1.1 Protime 10.5 Plasma us Harvey Domínguez III, MD LAB BLOOD ORDERABLE S Final Result * (ABNORMAL) CBC and differential (12/23/2024 9:53 AM EDT) Pathologist [facility] Hemoglobin 11.3(A) 13.5 - 17.5 g/dL Hematocrit [...] documented as of this encounter Care Teams Beef Trimmer Relationship Specialty Start Date End Date Enedina Mcguire NP [address] [place] [address] PCP - General Internal Medicine 10/05/24 Maureen Pantoja, RN Txp Post Coordinator Transplant Hepatology 10/28/24 documented as of this encounter
--- OUTSIDE RECORDS SUMMARY | 2025-02-10 09:32 | XMS_ITS | Encounter Summary ---
Author Organization [facility] Address [address] [place] [address] Care Team Providers Care Supercalender Operator Name Role Phone Enedina Mcguire NP Primary Care Provider + [phone] Maureen Pantoja RN Unavailable Unavail able Source [...] release of HIV test results or diagnoses. [id number] Reason for Visit * Reason Comments Results Encounter Details Date Type Department Care Team (Late st Contact Info) Description 12/29/[address] [facility] Liver Transplant at [address] [address] Maureen Pantoja, RN Results Social [...] In the past 12 months has e [employer], gas, oil, or water [employer] threatened to shut off services in [...] documented as of this encounter Care Teams Supercalender Operator Relationship Specialty Start Date End Date Enedina Mcguire NP [address] [place] [address] PCP - General Internal Medicine 10/05/24 Maureen Pantoja, RN Txp Post Coordinator Transplant Hepatology 10/28/24 documented as of this encounter
--- OUTSIDE RECORDS SUMMARY | 2025-02-10 09:32 | XMS_ITS | Encounter Summary ---
Author Organization [facility] Address [address] [place] [address] Care Team Providers Care Building Rental Manager Name Role Phone Enedina Mcguire NP Primary Care Provider + [phone] Maureen Pantoja RN Unavailable Unavail able Source [...] release of HIV test results or diagnoses. [id number] Reason for Visit * Reason Comments Critical Lab Results Encounter Details Date Type Department Care Team (Late st Contact Info) Description 01/19/2025 Telephone [facility] Liver Transplant at [address] [place] [phone] Gladis Chisholm MA Critical Lab Results [...] In the past 12 months has e [employer], gas, oil, or water [employer] threatened to shut off services in your [...] Chisholm MA - 01/19/2025 9:17 AM EDT [facility] lab called to report: Urine culture results; [...] as of this encounter Care Teams Building Rental Manager Relationship Specialty [place] [address] [place], [place] [id number] PCP - General Internal Medicine 10/05/24 Maureen Pantoja, RN Txp Post Coordinator Transplant Hepatology 10/28/24 documented as of this encounter
--- OUTSIDE RECORDS SUMMARY | 2025-02-10 09:32 | XMS_ITS | Encounter Summary ---
Author Organization [facility] Address [address] [place] [address] Care Team Providers Care Court Recorder Name Role Phone Enedina Mcguire NP Primary Care Provider + [phone] Maureen Pantoja RN Unavailable Unavail able Source [...] release of HIV test results or diagnoses. [id number] Health Encounter Details Date Type Department Care Team (Late st Contact Info) Description 02/03/2025 Telephone [facility] Liver Transplant at [address] [address] Marlene Ro MA Social History [...] Recorded In the past 12 months has [employer], gas, oil, or water [employer] threatened to shut off services in your [...] living in a prison (including now)? No 01/28/2025 Yearly Questionnaire Answer [...] Progress Notes * Marlene Ro MA - 02/03/2025 2:33 PM EDT Called lab to verify orders from today's draw that are still in process. According to Danielle at lab, she said that his tacrolimus, CMV, BK, Urine culture, and c diff/ stool studies are all still pending. She said the stool studies should be back within the hour but the rest will be a few days. I verbalized understanding. This has been sent to CC RN Maureen she is aware of the remaining orders status. documented in this encounter Plan of Treatment Not on file documented as of this encounter Visit Diagnoses Not on filedocumented in this encounter Additional Health Concerns Infection Onset Date Last Indicated Resolved Time C. difficile 01/28/2025 01/28/2025 Assessment Noted Time PHQ-9 Depression Total Score: 2 12/11/19 9:00 AM EDT documented as of this encounter Care Teams Court Recorder Relationship Specialty Start Date End Date Enedina Mcguire NP [address] [place] [address] PCP - General Internal Medicine 10/05/24 Maureen Pantoja, RN Txp Post Coordinator Transplant Hepatology 10/28/24 documented as of this encounter
--- OUTSIDE RECORDS SUMMARY | 2025-02-10 09:32 | XMS_ITS | Encounter Summary ---
Author Organization [facility] Address [address] [place] [address] Care Team Providers Care Policy Change Clerks Supervisor Name Role Phone Enedina Mcguire NP Primary Care Provider + [phone] Maureen Pantoja RN Unavailable Unavail able Source [...] release of HIV test results or diagnoses. [id number] Health Encounter Details Date Type Department Care Team (Late st Contact Info) Description 12/18/2024 Refill [facility] Liver Transplant at [address] [place] [phone] Maureen Pantoja, RN Encounter for therapeutic drug monitoring; S/P liver transplant ([facility]); Hypomagnesemia; Kidney transplant recipient; Hypertension, unspecified [...] Recorded In the past 12 months has [employer], [employer], oil, or water [employer] threatened to shut off services in your [...] for therapeutic drug monitoring S/P liver transplant ([facility]) Hypomagnesemia Disorders of magnesium metabolism Kidney [...] documented as of this encounter Care Teams Policy Change Clerks Supervisor Relationship Specialty Start Date End Date Enedina Mcguire NP [address] [place] [address] PCP - General Internal Medicine 10/05/24 Maureen Pantoja, ЮЛИЯ Txp Post Coordinator Transplant Hepatology 10/28/24 documented as of this encounter
--- OUTSIDE RECORDS SUMMARY | 2025-02-10 09:33 | XMS_ITS | Encounter Summary ---
Author Organization [facility] Address [address] [place] [address] Care Team Providers Care Utility Bag Assembler Name Role Phone Enedina Mcguire NP Primary Care Provider + [phone] Maureen Pantoja RN Unavailable Unavail able Source [...] release of HIV test results or diagnoses. [id number] Health Encounter Details Date Type Department Care Team (Late st Contact Info) Description 01/15/2025 Telephone [facility] Liver Transplant at [address] [address] Kaylin Willard MSW Social History [...] Recorded In the past 12 months has [employer], gas, oil, or water [employer] threatened to shut off services in your [...] continue to utilize these supports. NUBIA Barros, [facility] Transplant Audograph Operator documented in this encounter Plan of [...] as of this encounter Care Teams Utility Bag Assembler Relationship Specialty Start Date End Date Enedina Mcguire NP [address] [place] [address] PCP - General Internal Medicine 10/05/24 Maureen Pantoja, RN Txp Post Coordinator Transplant Hepatology 10/28/24 documented as of this encounter
--- OUTSIDE RECORDS SUMMARY | 2025-02-10 09:34 | XMS_ITS | Encounter Summary ---
Author Organization [facility] Address [address] [place] [address] Care Team Providers Care Substitute Teacher Name Role Phone Enedina Mcguire NP Primary Care Provider + [phone] Maureen Pantoja RN Unavailable Unavail able Source [...] release of HIV test results or diagnoses. [id number] Health Encounter Details Date Type Department Care Team (Late st Contact Info) Description 12/31/2024 Chart Note [facility] Liver Transplant at [address] [place] [phone] Marlene Ro MA 12/31 Labs entered from [facility] Social History Tobacco Use Types Packs/Day Years Used Date Smoking Tobacco: Former Cigarettes Smokeless Tobacco: Current Alcohol Use Standard Drinks/Week Comments Yes 0 (1 standard drink = 0.6 oz pure alcohol) History of alcohol abuse, reports no use in 3 week- typically endorses use as 4 glasses of wine a days Utilities Answer Date Recorded In the past 12 months has [employer], gas, oil, or water Neighborhoods threatened to shut off services in your [...] 11:59 AM EDT 12/31 Labs entered from [facility] documented in this encounter Plan [...] Virus Quant PCR PL Negative Plasma Result [facility] LAB BLOOD ORDERABLES Denisse l Result * (ABNORMAL) Magnesium (12/31/2024 9:41 AM EDT) Magnesium 1.2(A) 1.6 - 2.4 mg/dL Plasma Narrative Resulting Agency Comment [facility] Result [facility] LAB BLOOD ORDERABLES Denisse l Result * Hepatic Function Panel (12/31/2024 9:41 AM EDT) Bilirubin, Direct 0.1 Bilirubin, Indirect 0.4 Alkaline Phosphatase 66 ALT 14 AST 22 Total Bilirubin 0.5 Total Protein 6.4 Plasma Narrative Resulting Agency Comment [facility] Result [facility] LAB BLOOD ORDERABLES Denisse l Result * (ABNORMAL) Renal Function Panel w/o EGFR (12/31/2024 9:41 AM EDT) Glucose 91 BUN 18 CO2 26(A) 13 - 22 mmol/L Creatinine 0.90 Potassium 4.2 Sodium 141 Chloride 105 Phosphorus 4.8 2.5 - 4.9 mg/dL Calcium 9.5 EGFR 113 mg/dL Albumin 4.5 3.5 - 5.0 g/dL Blood Narrative Resulting Agency Comment [facility] Result [facility] LAB BLOOD ORDERABLES Denisse l Result * Creatinine, urine, random (12/31/2024 9:41 AM EDT) Creatinine, Urine 57 Urine Narrative Resulting Agency Comment [facility] Provider Result Type Result [facility] URINE ORDERABLES Final Re sult * Urinalysis w/Rfl to Microscopic (12/31/2024 9:41 AM EDT) Glucose, UA Negative Negative Ketones, UA Negative Negative Blood, UA Negative Negative Bilirubin, UA Negative Negative Urobilinogen, UA Normal Normal Protein, UA Negative Negative pH, UA 5.5 4.5 - 8.0 Specific [place], UA 1.025 1.005 - 1.030 Clarity, UA Clear Clear Color, UA Yellow Light Yellow, Yellow Urine Narrative Resulting Agency Comment [facility] Provider URINE ORDERABLES Final Re [...] 3.0 10^3/mL Blood Narrative Resulting Agency Comment [facility] Result [facility] Provider LAB BLOOD ORDERABLES Denisse l Result * Urine Protein, Tot, Random (w/o Creat) (12/31/2024 9:41 AM EDT) Total Protein, Ur 17.0 Urine Narrative Resulting Agency Comment [facility] Result [facility] Historical Provider URINE ORDERABLES Final Re sult documented in this encounter Visit Diagnoses Not on filedocumented in this encounter Additional Health Concerns Infection Onset Date Last Indicated Resolved Time 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
--- OUTSIDE RECORDS SUMMARY | 2025-02-10 09:34 | XMS_ITS | Encounter Summary ---
Author Organization [facility] Address [address] [place] [address] Care Team Providers Care Supervisor Char House Name Role Phone Enedina Mcguire NP Primary Care Provider + [phone] Maureen Pantoja RN Unavailable Unavail able Source [...] release of HIV test results or diagnoses. [id number] Health Encounter Details Date Type Department Care Team (Late st Contact Info) Description 02/03/2025 Chart Note [facility] Liver Transplant at [address] [place] [phone] Marleen Ro MA 02/03 Labs entered from [facility] Social History Tobacco Use Types Packs/Day Years Used Date Smoking Tobacco: Former Cigarettes Smokeless Tobacco: Current Alcohol Use Standard Drinks/Week Comments Yes 0 (1 standard drink = 0.6 oz pure alcohol) History of alcohol abuse, reports no use in 3 week- typically endorses use as 4 glasses of wine a days Utilities Answer Date Recorded In the past 12 months has [employer], gas, oil, or water [employer] threatened to shut off services in your [...] DNA AMPLIFICATION Routine 02/03/2025 11:04 AM EDT URINE PROTEIN, TOTAL, RANDOM (W/O CREATININE) Routine 02/03/2025 9:39 AM EDT CYTOMEGALOVIRUS DNA, QUANT, RT PCR Routine 02/03/2025 9:39 AM EDT BK VIRUS QUANTITATIVE BY PCR, BLOOD Routine 02/03/2025 9:39 AM EDT HEPATIC FUNCTION PANEL Routine 9:39 AM EDT TACROLIMUS LEVEL Routine 02/03/2025 9:39 AM EDT CREATININE, URINE, RANDOM Routine 02/03/2025 9:39 AM EDT URINALYSIS W/RFL TO MICROSCOPIC Routine 02/03/2025 9:39 AM EDT CBC AND DIFFERENTIAL Routine 02/03/2025 9:39 AM EDT MAGNESIUM Routine 02/03/2025 9:39 AM EDT RENAL FUNCTION PANEL W/O EGFR Routine 02/03/2025 9:39 AM EDT documented in this encounter Results * Clostridium difficile DNA Amplification (02/03/2025 11:04 AM EDT) Clost. Diff DNA Amp. Positive Norovirus Detected FECES / Unknown us Historical Provider BODY FLUIDS AND STOOLS OR DERABLES Edited Result - Final * Tacrolimus level (02/03/2025 9:39 AM EDT) Tacrolimus Lvl 7.0 6 - 15 ng/mL Whole Blood Narrative Resulting Agency Comment [facility] Result [facility] LAB BLOOD ORDERABLES Denisse l Result * Cytomegalovirus DNA, Quant, RT PCR (02/03/2025 9:39 AM EDT) CMV Quant DNA PCR (Plasma) Negative Plasma Narrative Resulting Agency [facility] LAB BLOOD ORDERABLES Denisse l Result * BK Virus Quantitative by PCR, Blood (02/03/2025 9:39 AM EDT) BK Virus Quant PCR PL Negative Plasma Narrative Resulting Agency Comment [facility] Result [facility] LAB BLOOD ORDERABLES Denisse l Result * Creatinine, urine, random (02/03/2025 9:39 AM EDT) Creatinine, Urine 79 Urine Narrative Resulting Agency Comment [facility] Result [facility] URINE ORDERABLES Final Re sult * Urine Protein, Tot, Random (w/o Creat) (02/03/2025 9:39 AM EDT) Total Protein, Ur 12.0 Urine Narrative Resulting Agency [facility] URINE ORDERABLES Final Re sult * Hepatic Function Panel (02/03/2025 9:39 AM EDT) Bilirubin, Direct 0.1 Bilirubin, Indirect 0.4 Alkaline Phosphatase 61 ALT 15 AST 18 Total Bilirubin 0.5 Total Protein 6.4 Plasma Narrative Resulting Agency [facility] LAB BLOOD ORDERABLES Denisse l Result * (ABNORMAL) Magnesium (02/03/2025 9:39 AM EDT) [facility] Magnesium 1.3(A) 1.6 - 2.4 mg/dL Plasma Narrative Resulting Agency [facility] Result [facility] Provider LAB BLOOD ORDERABLES Denisse l Result * (ABNORMAL) Renal Function Panel w/o EGFR (02/03/2025 9:39 AM EDT) [facility] Glucose 114 BUN 17 CO2 28(A) 13 - 22 mmol/L Creatinine 0.90 Potassium 4.1 Sodium 140 Chloride 103 Phosphorus 5.5(A) 2.5 - 4.9 mg/dL Calcium 9.4 EGFR 93 mg/dL Albumin 4.5 3.5 - 5.0 g/dL Blood Narrative Resulting Agency Comment [facility] Result [facility] LAB BLOOD ORDERABLES Denisse l Result * Urinalysis w/Rfl to Microscopic (02/03/2025 9:39 AM EDT) [facility] Glucose, UA Negative Negative Ketones, UA Negative Negative Blood, UA Negative Negative Bilirubin, UA Negative Negative Urobilinogen, UA Normal Normal Protein, UA Negative Negative Nitrite, UA Negative Negative pH, UA 6.0 4.5 - 8.0 Specific [place], UA 1.020 1.005 - 1.030 Clarity, UA Clear Clear Color, UA Yellow Light Yellow, Yellow Urine Narrative Resulting Agency [facility] Result [facility] Provider URINE ORDERABLES Final Re sult * (ABNORMAL) CBC and differential (02/03/2025 9:39 AM EDT) [facility] Hemoglobin 12.2(A) 13.5 - 17.5 g/dL Hematocrit [...] 2.8 10^3/mL Blood Narrative Resulting Agency Comment [facility] [...] Date End Date Enedina Mcguire NP [address] [place] [address] PCP - General Internal Medicine 10/05/24 Maureen Pantoja, ЮЛИЯ Txp Post Coordinator Transplant Hepatology 10/28/24 documented as of this encounter
--- OUTSIDE RECORDS SUMMARY | 2025-02-10 09:34 | XMS_ITS ---
Author Organization [facility] Address [address] [place] [address] Care Team Providers Care Roll Plugger Machine Operator Name Role Phone Enedina Mcguire NP Primary Care Provider + [phone] Maureen Pantoja RN Unavailable Unavail able Transplant Episode Liver Recipient [facility] ([place] [place]) [facility] Organ Received: Liver Transplanted on 10/26/2024 Marked as Active Follow-up on 10/26/2024 Liver CoordinatorMaureen Pantoja RN Phone: N/A Fax: N/A Email: N/A [place] Organ Diagnosis Organ Primary Contributory Liver Alcohol-Associated [...] N/A N/A Chris Orosco MD Referring Physician [phone] N/A Maureen Leeanna Pantoja, RN Txp Post Coordinator N/A N/A N/A NUBIA Barros Txp Gut Dropper N/A N/A N/A Harvey Domínguez III, MD Txp Surgeon [phone] N/A Mary Butler RN Txp Pre Coordinator N/A N/A N/A Events Post-Transplant Pre-Transplant Admitted: 10/25/2024 Referred: 08/13/2024 Transplanted: 10/26/2024 Evaluation began: 5 Discharged: 11/02/2024 Committee: 10/14/2024 Center waitlisted: 5 Pending Checklist Tasks (Due on or before 03/12/2025) Name Due Date Attached Appoint ment Social Work Consult 01/05/2025
--- OUTSIDE RECORDS SUMMARY | 2025-02-10 09:34 | XMS_ITS | Encounter Summary ---
Author Organization [facility] Address [address] [place] [address] Care Team Providers Care Panel Assembler Name Role Phone Enedina Mcguire NP Primary Care Provider + [phone] Maureen Pantoja RN Unavailable Unavail able Source [...] release of HIV test results or diagnoses. [id number] Health Encounter Details Date Type Department Care Team (Late st Contact Info) Description 02/09/2025 Chart Note [facility] Liver Transplant at [address] [place] [phone] Marisela Martinez MA Social History Tobacco Use [...] Recorded In the past 12 months has [employer] gas, oil, or water [employer] threatened to shut off services in your [...] Progress Notes * Marisela Martinez MA - 02/09/2025 10:08 AM EDT Images from the original note [...] documented as of this encounter Care Teams Panel Assembler Relationship Specialty Start Date End Date Enedina Mcguire NP [address] [place] [address] PCP - General Internal Medicine 10/05/24 Maureen Pantoja, ЮЛИЯ Txp Post Coordinator Transplant Hepatology 10/28/24 documented as of this encounter
--- OUTSIDE RECORDS SUMMARY | 2025-02-10 09:34 | XMS_ITS | Encounter Summary ---
Author Organization [facility] Address [address] [place] [address] Care Team Providers Care Hydraulic Spinner Name Role Phone Enedina Mcguire NP Primary Care Provider + [phone] Maureen Pantoja RN Unavailable Unavail able Source [...] release of HIV test results or diagnoses. [id number] Health Encounter Details Date Type Department Care Team (Late st Contact Info) Description 01/14/2025 Telephone [facility] Liver Transplant at [address] [phone] Marlene Ro MA Social History [...] Recorded In the past 12 months has [employer], gas, oil, or water [employer] threatened to shut off services in your [...] Progress Notes * Marlene oR MA - 01/14/2025 12:49 PM EDT Patients [...] as of this encounter Care Teams Hydraulic Spinner Relationship Specialty Start Date End Date Enedina Mcguire NP [address] [place] [address] PCP - General Internal Medicine 10/05/24 Maureen Pantoja, ЮЛИЯ Txp Post Coordinator Transplant Hepatology 10/28/24 documented as of this encounter
--- OUTSIDE RECORDS SUMMARY | 2025-02-10 09:34 | XMS_ITS ---
Author Organization [facility] Address [address] [place] [address] Care Team Providers Care Mold Yard Crane Operator Name Role Phone Enedina Mcguire NP Primary Care Provider [phone] Maureen Pantoja RN Unavailable Unavail able Transplant Episode Kidney Recipient [facility] ([place], [place]) - [facility] Organ Received: Left Kidney Transplanted on 10/27/2024 Marked as Active Follow-up on 10/27/2024 Kidney CoordinatorJosr Weber RN Phone: N/A Fax: N/A Email: N/A [place] Organ Diagnosis Organ Primary Contributory Kidney Hepatorenal [...] N/A N/A Flaquito Mayen MD Txp Surgeon [phone] N/A Bruno Gonzalez MD Txp Material Mover [phone] N/A Yovanny Curran MD Referring Physician [phone] N/A Events Post-Transplant Pre-Transplant Admitted: 10/25/2024 Referred: 10/07/2024 Transplanted: 10/27/2024 Evaluation began: Discharged: 11/02/2024 Committee: 10/20/2024 Center waitlisted: 5
--- OUTSIDE RECORDS SUMMARY | 2025-02-10 09:34 | XMS_ITS | Encounter Summary ---
Author Organization [facility] Address [address] [place] [address] Care Team Providers Care Director Of Sustainable Design Name Role Phone Enedina Mcguire NP Primary Care Provider + [phone] Maureen Pantoja RN Unavailable Unavail able Source [...] release of HIV test results or diagnoses. [id number] Reason for Visit * Reason Comments Results Encounter Details Date Type Department Care Team (Riky st Contact Info) Description 01/05/2025 Telephone [facility] Liver Transplant at [address] [phone] Maureen Pantoja, RN Results Social [...] In the past 12 months has [employer], gas, oil, or water [employer] threatened to shut off services in your [...] of this encounter Care Teams Director Of Sustainable Design Relationship Specialty Start Date End Date Enedina Mcguire NP [address] [place] [address] PCP - General Internal Medicine 10/05/24 Maureen Pantoja, ЮЛИЯ Txp Post Coordinator Transplant Hepatology 10/28/24 documented as of this encounter
--- OUTSIDE RECORDS SUMMARY | 2025-02-10 09:34 | XMS_ITS | Encounter Summary ---
Author Organization [facility] Address [address] [place] [address] Care Team Providers Care Investor Relations Analyst Name Role Phone Enedina Mcguire NP Primary Care Provider + [phone] Maureen Pantoja RN Unavailable Unavail able Source [...] release of HIV test results or diagnoses. [id number] Health Encounter Details Date Type Department Care Team (Late st Contact Info) Description 02/09/2025 Telephone [facility] Liver Transplant at [address] [place] [phone] Marisela Martinez MA Social History Tobacco [...] Recorded In the past 12 months has [employer], [employer], oil, or water [employer] threatened to shut off services in your [...] Notes * Marisela Martinez MA - 02/09/2025 10:04 AM EDT Outpt Lab called to report a critical lab report for pt Urine Culture collected on 02/03/2025 has resulted with: Enterococcus Faecium and it is resistant to Vancomycin. documented in this encounter Plan of Treatment Not on file documented as of this encounter Visit Diagnoses Not on filedocumented in this encounter Additional Health Concerns Infection Onset Date Last Indicated Resolved Time C. difficile 01/28/2025 01/28/2025 Assessment Noted Time PHQ-9 Depression Total Score: 2 12/11/19 9:00 AM EDT documented as of this encounter Care Teams Investor Relations Analyst Relationship Specialty Start Date End Date Enedina Mcguire NP [address] [place] [address] PCP - General Internal Medicine 10/05/24 Maureen Pantoja, RN Txp Post Coordinator Transplant Hepatology 10/28/24 documented as of this encounter
[2025-02-10 09:36] LABS: Microscopic, Urine URINE MICROSCOPIC (MICROSCOPIC)
[2025-02-10 10:05] LABS: Hematocrit 38.6 % (42.0-52.0); Hemoglobin 13.1 g/dL (14.1-18.0); Immature Granulocytes % 1.7 %; Mean Corpuscular HGB Conc 33.9 g/dL (31.8-35.4); Mean Corpuscular Hemoglobin 32.2 pg (27.0-31.2); Mean Corpuscular Volume 94.8 fl (80-94); Nucleated Red Blood Cells % 0 %; Platelet Count 169 K/mm3 (142-424); Red Blood Count 4.07 M/mm3 (4.60-6.20); Red Cell Distribution Width-SD 46.3 fL; White Blood Count 4.6 K/mm3 (4.8-10.8)
[2025-02-10 11:13] LABS: Alanine Aminotransferase 16 U/L (12-78); Albumin Level 4.7 g/dl (3.5-5.0); Aspartate Amino Transferase 25 U/L (17-59); Bilirubin,Unconjugated 0.4 mg/dL (0.0-1.1); Blood Urea Nitrogen 15 mg/dl (9-20); Chloride 102 mmol/L (98-107); Creatinine,Serum 0.90 mg/dl (0.66-1.25); Estimated Glomerular Filt Rate 93 ml/min (>60); GFR (African American) 113 ML/MIN (>60); Magnesium 1.4 mg/dl (1.6-2.3); Phosphorous 4.8 mg/dl (2.5-4.5); Total Protein,Serum 6.7 g/dl (6.3-8.2)
[2025-02-10 11:14] LABS: Glucose 101 mg/dl (74-100)
[2025-02-10 11:15] LABS: Alkaline Phosphatase 74 U/L (38-126); Calcium 9.4 mg/dl (8.4-10.2); Potassium 4.1 mmoL/L (3.5-5.1); Sodium 141 mmol/L (136-145)
[2025-02-10 11:18] LABS: Bilirubin,Total 0.7 mg/dl (0.2-1.3)
[2025-02-10 12:16] LABS: Bilirubin,Direct 0.4 mg/dl (0.0-0.4); Bilirubin,Indirect 0.4 mg/dL (0.0-0.9)
[2025-02-10 12:54] LABS: Anion Gap 17.1 mEq/L (5-15); Carbon Dioxide 26 mmol/L (22.0-30.0)
[2025-02-10 13:02] LABS: Bilirubin,Urine Negative (Negative); Color,Urine YELLOW (Yellow); Glucose,Urine (UA) Negative (Negative); Ketones,Urine Negative (Negative); Leukocyte Esterase,Urine Negative (Negative); PH,Urine 6.0 (5.0-8.5); Protein,Urine Negative (Negative); Specific Gravity, Urine 1.020 (1.005-1.030); Urobilinogen,Urine 0.2 EU/dl (0.2)
[2025-02-10 13:44] LABS: Squamous Epithelial Cell,Urine Occasional #/hpf (0-5); WBC,Urine Occasional #/hpf (0-3)
[2025-02-10 13:45] LABS: Bacteria,Urine 1+ /lpf; Hyaline Casts,Urine OCC #/lpf (0)
[2025-02-11 15:23] LABS: BKV DNA, Quant PCR, Plasma Negative (Negative)
== END 2025-02-10 23:59 | disposition home or self-care (01) ==
LOC: LAB 09:21
PROVIDERS: PCP Nurse Practitioner Family; Visit Provider Surgery
DX: Z94.4 Liver transplant status (principal); D84.9 Immunodeficiency, unspecified; Z94.0 Kidney transplant status; Z79.60 Long term (current) use of unspecified immunomodulators and immunosuppressants; Z20.828 Contact with and (suspected) exposure to other viral communicable diseases
CPT/HCPCS: 36415; 80069; 80076; 80197; 80321; 81001; 82570; 83735; 84156; 85025; 87086; 87088; 87497

== ENCOUNTER 2025-02-18 10:25 | Outpatient (CLI) | payer OTHER, SELFPAY ==
[2025-02-18 10:35] LABS: Microscopic, Urine URINE MICROSCOPIC (MICROSCOPIC)
[2025-02-18 11:04] LABS: Hematocrit 37.5 % (42.0-52.0); Hemoglobin 12.9 g/dL (14.1-18.0); Immature Granulocytes % 1.6 %; Mean Corpuscular HGB Conc 34.4 g/dL (31.8-35.4); Mean Corpuscular Hemoglobin 32.4 pg (27.0-31.2); Mean Corpuscular Volume 94.2 fl (80-94); Nucleated Red Blood Cells % 0 %; Platelet Count 115 K/mm3 (142-424); Red Blood Count 3.98 M/mm3 (4.60-6.20); Red Cell Distribution Width-SD 46.1 fL; White Blood Count 4.9 K/mm3 (4.8-10.8)
[2025-02-18 11:31] LABS: Albumin Level 4.4 g/dl (3.5-5.0); Chloride 99 mmol/L (98-107); Potassium 4.3 mmoL/L (3.5-5.1); Sodium 140 mmol/L (136-145)
[2025-02-18 11:33] LABS: Alanine Aminotransferase 19 U/L (12-78); Anion Gap 14.3 mEq/L (5-15); Aspartate Amino Transferase 24 U/L (17-59); Bilirubin,Unconjugated 0.5 mg/dL (0.0-1.1); Carbon Dioxide 31 mmol/L (22.0-30.0)
[2025-02-18 11:34] LABS: Alkaline Phosphatase 85 U/L (38-126); Bilirubin,Direct 0.0 mg/dl (0.0-0.4); Bilirubin,Indirect 0.5 mg/dL (0.0-0.9); Bilirubin,Total 0.5 mg/dl (0.2-1.3); Calcium 9.1 mg/dl (8.4-10.2); Glucose 84 mg/dl (74-100); Magnesium 1.4 mg/dl (1.6-2.3); Phosphorous 4.9 mg/dl (2.5-4.5); Total Protein,Serum 7.1 g/dl (6.3-8.2)
[2025-02-18 13:05] LABS: Blood Urea Nitrogen 24 mg/dl (9-20); Creatinine,Serum 1.10 mg/dl (0.66-1.25); Estimated Glomerular Filt Rate 74 ml/min (>60); GFR (African American) 89 ML/MIN (>60)
[2025-02-18 14:39] LABS: Bilirubin,Urine Negative (Negative); Color,Urine YELLOW (Yellow); Glucose,Urine (UA) Negative (Negative); Ketones,Urine Negative (Negative); Leukocyte Esterase,Urine Negative (Negative); PH,Urine 5.5 (5.0-8.5); Protein,Urine Negative (Negative); Specific Gravity, Urine 1.015 (1.005-1.030); Urobilinogen,Urine 0.2 EU/dl (0.2)
[2025-02-20 11:12] LABS: Testosterone,Total 51 ng/dL (264-916)
[2025-02-22 15:10] LABS: Testosterone,Free 0.6 pg/mL (6.8-21.5)
[2025-02-22 19:09] LABS: Tacrolimus (FK506), Blood 10.7 ng/mL (5.0-20.0)
== END 2025-02-18 23:59 | disposition home or self-care (01) ==
LOC: LAB 10:26
PROVIDERS: PCP Nurse Practitioner Family; Visit Provider Surgery
DX: D84.9 Immunodeficiency, unspecified (principal); Z94.4 Liver transplant status; Z94.0 Kidney transplant status; F10.90 Alcohol use, unspecified, uncomplicated; Z79.60 Long term (current) use of unspecified immunomodulators and immunosuppressants; R79.89 Other specified abnormal findings of blood chemistry
CPT/HCPCS: 36415; 80069; 80076; 80197; 80321; 81001; 82570; 83735; 84156; 84402; 84403; 85025; 87086; 87088; 87186

== ENCOUNTER 2025-02-24 12:54 | Outpatient (CLI) | payer OTHER, SELFPAY ==
--- OUTSIDE RECORDS SUMMARY | 2024-09-02 14:40 | XMS_ITS | Encounter Summary ---
Author Organization [facility] Address [address] [place] [address] Care Team Providers Care Mix House Tender Name Role Phone Enedina Mcguire NP Primary Care Provider + [phone] Maureen Pantoja RN Unavailable Unavail able Source [...] release of HIV test results or diagnoses. [id number] Reason for Visit * Reason Comments Follow-up Bloating in PT stoma ch * Hospital Discharge Follow-Up (Routine) - Closed Specialty Diagnoses / Procedures Referred By Shane t Referred To Contact Hepatology Feliciano Freeman MD [address] [place] [address] Phone: tel: fax: Referral ID Status Reason Start Date Expiration Date Visits Re quested Visits Authorized [id number] Closed 07/29/2024 01/25/2025 1 1 Encounter Details Date Type Department Care Team (Latest Contact Info) Description 09/02/2024 2:40 PM EDT Office Visit [facility] G[facility]enterology at [place] [facility] [address] [facility] [address] [place] [phone] Gerri Peterson MD [address] [place] [address] Cirrhosis of liver with ascites, [...] the past 12 months has th e [employer], [employer], oil, or water [employer] threatened to shut off services in your [...] any time in the past 12 m [facility], were you homeless or living in a penitentiary (including now)? No 01/28/2025 Yearly Questionnaire Answer [...] Peterson MD - 09/02/2024 2:40 PM EDT [facility] HEPAT[facility] NOTE Chief complaint: Post hospital [...] worsening ascites and had therapeutic paracentesis at [facility] with about a week prior to this [...] will prefer to have LVP done at [facility]. Will print out paper order for LVP. [...] Chris Orosco MD, MPH Transplant hepatology Pager: [phone] documented in this encounter Plan of Treatment Not on file documented as of this encounter Results * (ABNORMAL) CBC (09/02/2024 5:00 PM EDT) WBC 10.4 3.8 - 10.8 10E3/uL 09/02/2024 7:42 PM EDT [facility] RBC 3.13(L) 4.20 - 5.80 10E6/uL 09/02/2024 7:42 PM EDT [facility] Hemoglobin 11.1(L) 13.2 - 17.1 g/dL 09/02/2024 7:42 PM EDT [facility] Hematocrit 30.7(L) 38.5 - 50.0 % 09/02/2024 7:42 PM EDT [facility] MCV 97.9 80.0 - 100.0 fL 09/02/2024 7:42 PM EDT [facility] MCH 35.3(H) 27.0 - 33.0 pg 09/02/2024 7:42 PM EDT [facility] MCHC 36.1(H) 32.0 - 36.0 g/dL 09/02/2024 7:42 PM EDT [facility] RDW 22.7(H) 11.0 - 15.0 % 09/02/2024 7:42 PM EDT [facility] Platelets 73(L) 140 - 400 10E3/uL 09/02/2024 7:42 PM EDT [facility] MPV 9.4 7.5 - 11.5 fL 09/02/2024 7:42 PM EDT [facility] Whole Blood 09/02/2024 5:00 PM EDT 09/02/2024 7:34 PM EDT us Gerri Peterson MD LAB BLOOD ORDERABLES Final Resu lt [facility] [address] documented in this encounter Visit Diagnoses [...] documented as of this encounter Care Teams Mix House Tender Relationship Specialty Start Date End Date Enedina Mcguire NP [address] [place] [address] PCP - General Internal Medicine 10/05/24 Maureen Pantoja, RN Txp Post Coordinator Transplant Hepatology 10/28/24 documented as of this encounter
--- OUTSIDE RECORDS SUMMARY | 2024-12-09 09:50 | XMS_ITS | Encounter Summary ---
Author Organization [facility] Address [address] [place] [address] Care Team Providers Care Bomb Squad Commander Name Role Phone Enedina Mcguire NP Primary Care Provider + [phone] Maureen Pantoja RN Unavailable Unavail able Source [...] release of HIV test results or diagnoses. [id number] Health Encounter Details Date Type Department Care Team (Late st Contact Info) Description 12/09/2024 9:50 AM EDT Office Visit [facility] Liver Transplant at [place] [address] [place] [address] Leisa Juarez MD [address] [place] [address] 2nd [place] [address] Kidney transplant recipient (Primary Dx); Immunosuppressive management encounter following liver transplant ([facility]); Hypomagnesemia; S/P liver transplant ([facility]); Hypertension, unspecified type; Hyperparathyroidism ([facility]) Social History Tobacco Use Types Packs/Day Years [...] Hepatorenal syndrome ([facility]) Hypertension Other hyperlipidemia 07/26/2024 Renal cell carcinoma (CMS-HCC) Thrombocytopenia ([facility]) Thyroid disease Surgical History: Past Surgical History: [...] Strain: Low Risk (07/09/2024) Received from [facility] Overall Financial Resource Strain (CARDIA) [...] To Answer (07/14/2024) Received from [facility] [employer] [place] of Occupational Health - Occupational Stress Questionnaire Feeling of Stress : Patient unable to answer Social Connections: Patient Unable To Answer (07/14/2024) Received from [facility] Social Connection and Isolation Panel [NHANES] Frequency of Communication with Friends and Family: Patient unable to answer Frequency of Social Gatherings with Friends and Family: Patient unable to answer Attends Rastafari Services: Patient unable to answer Active Member [...] times a day. naloxone (NARCAN) 4 mg/actuation [place] Apply 1 spray in one nostril [...] Results Component Value Date PTH 36.0 10/25/2024 [id number] 7.1 (L) 10/08/2024 Hemoglobin A1C: Lab Results [...] Discussed with Dr. Juarez. Lauren Santos, SAMSON, RESIDENTIAL PROPERTY MANAGER, BOILERS INSPECTOR- Transplant Nephrology [phone] Preferred contact: secure chat The HPI, ROS, [...] Primary Immunosuppressive management encounter following liver transplant ([facility]) Hypomagnesemia Disorders of magnesium metabolism S/P liver transplant ([facility]) Hypertension, unspecified type Hyperparathyroidism ([facility]) Hyperparathyroidism, unspecified documented in this encounter Additional Health Concerns Infection Onset Date Last Indicated Resolved Time 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
--- OUTSIDE RECORDS SUMMARY | 2024-12-09 11:45 | XMS_ITS | Encounter Summary ---
Author Organization [facility] Address [address] [place] [address] Care Team Providers Care Hydrographical Technical Officer Name Role Phone Enedina Mcguire NP Primary Care Provider + [phone] Maureen Pantoja RN Unavailable Unavail able Source [...] release of HIV test results or diagnoses. [id number] Health Encounter Details Date Type Department Care Team (Late st Contact Info) Description 12/09/2024 11:45 AM EDT Office Visit [facility] Psychiatry Transplant at [place] [address] [phone] Rebekah Linares, [address] [place] [address] Alcohol use disorder (Primary Dx) [...] Recorded In the past 12 months has [employer], gas, oil, or water [employer] threatened to shut off services in your [...] no psychomotor abnormalities Cognition: short term and quantity surveyor memory intact Attitude: cooperative Affect: full range [...] documented as of this encounter Care Teams Hydrographical Technical Officer Relationship Specialty Start Date End Date Enedina Mcguire NP [address] [place] [address] PCP - General Internal Medicine 10/05/24 Maureen Pantoja, ЮЛИЯ Txp Post Coordinator Transplant Hepatology 10/28/24 documented as of this encounter
--- OUTSIDE RECORDS SUMMARY | 2025-01-01 14:15 | XMS_ITS | Encounter Summary ---
Author Organization [facility] Address [address] [place] [address] Care Team Providers Care Cell Repairer Name Role Phone Eendina Mcguire APRN Primary Care Provider + Reason for Visit * Reason Comments Follow-up Neck Pain Back Pain Encounter Details Date Type Department Care Team (Late st Contact Info) Description 01/01/2025 2:15 PM EDT Office Visit [facility] MEDICAL [facility] PAIN MANAGEMENT [address] [address] Vazquez Christie PA-C 1760 [facility] [address] [place] [address] Cervical radiculopathy (Primary Dx); Long-term use of [...] Recorded In the past 12 months has [employer], gas, oil, or water [employer] threatened to shut off services in [...] liver transplant that took place at the [facility]. Patient does report he has not been [...] Surgeon: Presley Montes De Oca MD; Location: [facility]; Service: Gastroenterology; Laterality: N/A; ENDOSCOPY N/A 07/29/2022 Procedure: ESOPHAGOGASTRODUODENOSCOPY; Surgeon: Presley Montes De Oca MD; Location: [facility]; Service: Gastroenterology; Laterality: N/A; WITH APC [...] Referrals: None indicated 9. Records: [facility]er reviewed; [facility] notes reviewed 10. Lifestyle goals: Follow-up 3 months [facility] Pain Management Vazquez Christie PA-C documented in this encounter Plan of Treatment Upcoming Encounters Date Type Department Care Team (Late st Contact Info) Description 04/02/2025 2:15 PM EST Office Visit [facility]EMENT [address] [facility] [address] [place] [address] Vazquez Christie PA-C 1760 [facility] [address] [place] [address] 05/18/2025 2:30 PM EST Office Visit [facility] INTERNAL MEDICINE [address] [place] [address] Enedina Mcguire APRN [address] [place] [address] [id number] documented as of this encounter Visit Diagnoses [...] as of this encounter Care Teams Cell Repairer Relationship Specialty Start Date End Date Enedina Mcguire APRN [address] [place] [address] PCP - General Nurse Practitioner 10/27/24 documented as of this encounter
--- OUTSIDE RECORDS SUMMARY | 2025-01-06 08:20 | XMS_ITS | Encounter Summary ---
Author Organization [facility] Address [address] [place] [address] Care Team Providers Care Consumer Relations Complaint Clerk Name Role Phone Enedina Mcguire NP Primary Care Provider + [phone] Maureen Pantoja RN Unavailable Unavail able Source [...] release of HIV test results or diagnoses. [id number] Reason for Visit * Reason Comments Liver Transplant Follow-up Encounter Details Date Type Department Care Team (Late st Contact Info) Description 01/06/2025 8:20 AM EDT Office Visit [facility] Liver Transplant at [address] [address] Cosmo Pacheco MD [address] [place] [address] Liver/[place] [address] Mahad Alonzo MD [employer] [place] [address] S/P liver transplant (CMS-HCC) (Primary [...] the past 12 months has th e [employer], gas, oil, or water company threatened to [...] Nutrition: patient continues close f/u w/ transplant parts coordinator. - Bone health: Vit D level to be drawn ~POD#90. - Labs: Labs (CBC w/ diff, renal panel, liver panel, tacro level) weekly. Lipid panel, HgbA1C and Vit D level to be drawn at POD#90, HgbA1C and Vit D level to be drawn at POD#180. - Follow up: RTC 1 month Mahad Alonzo MD Transplant Surgery [phone] [1] Allergies Allergen Reactions Adhesive Itching and [...] as of this encounter Care Teams Consumer Relations Complaint Clerk Relationship Specialty Start Date End Date Enedina Mcguire NP [address] [place] [address] PCP - General Internal Medicine 10/05/24 Maureen Pantoja, ЮЛИЯ Txp Post Coordinator Transplant Hepatology 10/28/24 documented as of this encounter
--- OUTSIDE RECORDS SUMMARY | 2025-01-06 09:30 | XMS_ITS | Encounter Summary ---
Author Organization [facility] Address [facility] [place] [address] Care Team Providers Care Mother'S Helper Name Role Phone Enedina Mcguire NP Primary Care Provider + [phone] Maureen Pantoja RN Unavailable Unavail able Source [...] release of HIV test results or diagnoses. [id number] Health Encounter Details Date Type Department Care Team (Late st Contact Info) Description 01/06/2025 9:30 AM EDT Office Visit [facility] Liver Transplant at [place] [address] [place] [address] Leisa Juarez MD [address] [place] [address] 2nd [place] [address] Kidney transplant recipient (Primary Dx); [...] liver (CMS-HCC) Esophageal varices (CMS-HCC) Hepatorenal syndrome ([facility]) Hypertension Other hyperlipidemia 07/26/2024 Renal [...] from [facility] Exercise Vital Sign Days of Exercise per Week: Patient unable to answer Minutes of Exercise per Session: Not on file Stress: Patient Unable To Answer (07/14/2024) Received from [facility] [place] of Occupational Health - Occupational Stress Questionnaire Feeling of Stress : Patient unable to answer Social Connections: Patient Unable To Answer (07/14/2024) Received from [facility] Social Connection and Isolation Panel [NHANES] Frequency [...] Results Component Value Date PTH 36.0 10/25/2024 [id number] 7.1 (L) 10/08/2024 Hemoglobin A1C: Lab Results [...] Discussed with Dr. Juarez. Lauren Santos, SAMSON, MACHINE FELLER, POULTRY VACCINATOR- Transplant Nephrology [phone] Preferred contact: secure chat The HPI, ROS, [...] documented as of this encounter Care Teams Mother'S Helper Relationship Specialty Start Date End Date Enedina Mcguire NP [address] [place] [address] PCP - General Internal Medicine 10/05/24 Maureen Pantoja, ЮЛИЯ Txp Post Coordinator Transplant Hepatology 10/28/24 documented as of this encounter
--- OUTSIDE RECORDS SUMMARY | 2025-01-27 18:28 | XMS_ITS | Encounter Summary ---
Author Organization [facility] Address [facility] [place] [address] Care Team Providers Care Leaf Stripper Name Role Phone Enedina Mcguire NP Primary Care Provider [phone] Maureen Pantoja RN Unavailable Unavail able Source [...] release of HIV test results or diagnoses. [id number] Reason for Visit * Reason Comments Fever Immunocompromised 89F x1 day ago Diarrhea Headache * Auth/Cert (Routine) Specialty Diagnoses / Procedures Referred By Contac t Referred To Contact Transplant Diagnoses Diarrhea of presumed infectious origin [address] [place] [address] Phone: tel: Referral ID Status Reason Start Date Expiration Date Visits Re quested Visits Authorized [id number] 1 1 Encounter Details Date Type Department Care Team (Latest Contact Info) Description 01/27/2025 6:28 PM EDT - 01/30/2025 2:25 PM EDT Hospital Encounter [address] [place] [address] Sunny Wei MD [address] [address] Lydia Sanchez MD [address] [facility] [place] [address] Diarrhea of presumed infectious origin (Primary Dx); Immunosuppression ([facility]) Discharge Disposition: Home or Self Care [...] the past 12 months has th e [employer], gas, oil, or water [employer]MI threatened to shut off services in your [...] or 2 01/28/2025 12:00 AM EDT Ginette Mokc RN Q3: How often do you have six or more drinks on one occasion? Weekly 01/28/2025 12:00 AM EDT Marixa Mock RN documented as of this encounter Discharge Summaries * NUBIA Tian LSW - 01/30/2025 1:04 PM EDT [facility] Care Management Discharge Summary Patient name: [...] at Discharge: Abdiaziz Gilbert- Family Contact Number: [phone] Plan reviewed with MD and other members of the health care team: Yes Care Plan Completed: Yes No further CM/SW needs. This plan has been reviewed with the multi-disciplinary team. Treatment Preferences Treatment Preferences: Distance Post-Discharge Goals Patient's Post-Discharge goals: Get stronger at home. Post Acute Care Provider Information: Community Services at Discharge Community Services at Home post discharge: Not Applicable RONALDO Garner [phone] * Feliciano Gomez CNP - 01/30/2025 8:39 AM EDT [facility] Inpatient Discharge Summary Patient: Julien Gilbert Age: 39 y.o. [facility]: [id number] Date of Admission: 01/27/2025 Date of Discharge: 01/30/2025 Attending Physician: Lydia Sanchez MD Primary Care Physician: Enedina Mcguire NP Diagnoses Present on Admission Past Medical History: Diagnosis Date Alcoholic cirrhosis of liver (CMS-HCC) Esophageal varices ([facility]) Hepatorenal syndrome ([facility]) Hypertension Other hyperlipidemia 07/26/2024 Renal cell carcinoma ([facility]) Thrombocytopenia ([facility]) Thyroid disease Discharge Diagnoses There are [...] Your Medications These medications were sent to [facility] [address] [place] [id number] Hours: Sunday - Sunday: 8:00AM - 6:00PM [...] Instructions: Call post-kidney transplant clinic with questions [phone] or call [facility] at [phone] and ask for the kidney payroll coordinator conference center manager if you experience any of the [...] through Care Everywhere. * C. Diff Infection [id number] (Iraqi) documented in this encounter Medications at Time [...] ncounter for therapeutic drug monitoring,S/P liver transplant ([facility]),Hypomagnes emia,Kidney transplant recipient,Hypertensi on, unspecified type,Gastroesophagea l reflux disease, unspecified whether esophagitis present Take 1 capsule (50,000 Units total) by mouth once a week. 4 capsule 2 5 famotidine (PEPCID) 20 MG tabletIndications:En counter for therapeutic drug monitoring,S/P liver transplant ([facility]),Hypomagnes emia,Kidney transplant recipient,Hypertensi on, unspecified type,Gastroesophagea l reflux disease, unspecified whether esophagitis present Take 1 tablet (20 mg total) by mouth 2 times a day. 60 tablet 2 5 levothyroxine (SYNTHROID) 75 MCG tablet [...] ncounter for therapeutic drug monitoring,S/P liver transplant ([facility]),Hypomagnes emia,Kidney transplant recipient,Hypertensi on, [...] counter for therapeutic drug monitoring,S/P liver transplant ([facility]),Hypomagnes emia,Kidney transplant recipient,Hypertensi on, [...] Liver Transplant Rejection. 330 capsule 5 5 magnesium chloride (SLOW MAG) 71.5 mg TbECIndications:hypo magnesemia Take 2 tablets (143 mg total) by mouth 3 times a day. Indications: hypomagnesemia 180 tablet 2 5 02/13/20 25 fidaxomicin (DIFICID) 200 mg Tab tablet Take 1 tablet (200 mg total) by mouth 2 times a day for 8 days. 16 tablet 01/30/2025 11:36 AM EDT 5 02/13/20 25 FLUoxetine (PROZAC) 20 MG capsule Take 1 capsule (20 mg total) by mouth daily. 30 capsule 2 5 02/10/20 25 gabapentin (NEURONTIN) 100 MG capsuleIndications:E ncounter for therapeutic drug monitoring,S/P liver transplant ([facility]),Hypomagnes emia,Kidney transplant recipient,Hypertensi on, [...] hours. 30 patch 01/30/2025 11:36 AM EDT 02/13/20 25 documented as of this encounter Progress [...] and treatment with this patient/family. Please page [phone] with any additional questions or concerns. Thank [...] / \ 0.08 / 19 \ / 19 / \ / 59 \ Lipids 10/07/2024 Value TChol <25 (10/07) Trig 30 (10/07) LDL 4* (10/07) HDL See Note (10/07) PT/INR/PTT - 12/23/2024 PT 10.5 (12/23) INR 0.94 (12/23) PTT 41.7* (10/25) Signed: Bisi Gonzalez MD 01/29/2025 9:15 AM Pager: [phone] * Feliciano Gomez CNP - 01/29/2025 8:12 [...] 2.5 PHOS -- 4.4 5.6* Recent Labs 01/27/25201901/28/2571301/29/25 0555 AST 20 17 19 ALT 26 [...] plan per attending physician Feliciano Gomez CNP ,MANAGER NUCLEAR Transplant Surgery 01/29/2025 This note was completely [...] plan per attending physician Feliciano Gomez CNP ,MANAGER NUCLEAR Transplant Surgery 01/28/2025 Cosigned by Lydia Sanchez [...] - 01/27/2025 7:19 PM EDT [facility] ED Note Date of Service: 01/27/2025 [...] 144/94 -- -- 86 22 98 % 01/27/253 (!) 143/99 -- -- 87 13 97 [...] liver (CMS-HCC) Esophageal varices (CMS-HCC) Hepatorenal syndrome ([facility]) Hypertension Other hyperlipidemia 07/26/2024 Renal cell [...] History and Physical Patient: Julien Gilbert CSN: [id number] History CC: neutropenic fevers, diarrhea HPI: Julien [...] Strain: Low Risk (07/09/2024) Received from [facility] Overall Financial Resource Strain (CARDIA) [...] To Answer (07/14/2024) Received from [facility] - Occupational Stress Questionnaire Feeling of Stress : Patient unable to answer Social Connections: Patient Unable To Answer (07/14/2024) Received from [facility] Social Connection and Isolation Panel [NHANES] Frequency of Communication with Friends and Family: Patient unable to answer Frequency of Social Gatherings with Friends and Family: Patient unable to answer Attends [employer] [facility]: Patient unable to answer Active Member [...] to floor SHELBY BLANCO MD [facility] General Surgery Cosigned by Lydia Sanchez [...] this encounter Consult Notes * NUBIA Tian, HOOP ROLLS OPERATOR - 01/28/2025 11:02 AM EDT [facility] Alcohol Audit Julien Gilbert [id number] Alcohol Level Alcohol Level obtained?: No [...] Sanchez MD Patient's Name: Julien Gilbert CSN: [id number] Reason for Consult Antimicrobial Recommendations Assessment & [...] chicken or bird exposure. Remote cruise to [place], but no recent international travel. Microbiology Blood [...] pain. Bisi Gonzalez MD Infectious Diseases Pager [phone] * NUBIA Tian, HOOP ROLLS OPERATOR - 01/28/2025 8:21 AM EDT HEALTH Care Management/Social Work Assessment Patient Information Patient Name: Julien Gilbert Hospital Day: 1 Inpatient/Observation: Inpatient Admit Date: 01/27/2025 Admission Diagnosis: Diarrhea of presumed infectious origin [R19.7] Attending provider: Lydia Sanchez MD PCP: Enedina Mcguire NP [facility]: [facility] [address] [place] [address] [id number] [facility], [place] - [address] [facility] [address] [facility] [facility] [address] [address] Pertinent Medications Anticoagulation therapy: No New Diabetic: No Issues related to obtaining medications: none Payor Information Medical Insurance Coverage: Payor: [employer] / Plan: [employer] / Product Type: *No Product type* / Secondary Payor: [facility] Functional Assessment Functional Assessment Assessment Information [...] Was any abuse reported by patient?: No [facility] Status & Connection to [facility] Services [facility] Status & Connection to [facility] Services Are [...] Information SW consult request reviewed and completed. TAYLOR Hillman introduced self to patient, explained role, verified demographic and emergency contact information. SWCM verified patients LNOK and HCPOA and assessment was completed by conversation with patient and chart review. [facility] will provide active listening and will work with patient's family, medical team and any community providers to assist in coordination of care for discharge planning. CM will provide intervention and contact based on the patient and family's needs. [facility] verified patient's supports at discharge. SW discussed transplant needs and follow up appointments. [...] or dialysis. Patient has no history of half-way facility or inpatient rehabilitation facility admissions. Patient has no history of home health care services. Patient receives outpatient labs at his appointments. PCP: Enedina Mcguire SWCM confirmed with patient/family that there are no additional SWCM needs at this time. SW provided the family with SW contact [phone]. Patient/Family aware and taking part in the [...] are disclosed as appropriate. NUBIA TIAN, RONALDO [phone] documented in this encounter Nursing Notes * [...] and is agreeable. Receiving RN may call [phone] to consult ED RN with questions regarding [...] RN - 01/27/2025 7:07 PM EDT Bed: [facility] Expected date: Expected time: Means of arrival: [...] Patient will remain free of falls Goal: Benedicta Fall Precautions Outcome: Progressing Problem: Daily Care [...] - 01/29/2025 11:45 AM EDT [facility] Case [...] [facility] - [place], [facility] [id number] [facility] [address] [facility] [place], [place] - [address] [place] [address] Medical Insurance Coverage: Payor: [employer] [facility] / Plan: [employer] / Product Type: *No Product type* / Other Pertinent Information SWCM attended multidisciplinary rounds with the Transplant Team. SWCM reviewed [facility]'s chart[facility] is not medically ready to discharge. Patient to receive CT scan. Patient goes outpatient for lab draws. Discharge Plan Anticipated discharge plan: Home w OP labs Anticipated discharge date: 01/30 CM/SW will continue to follow and remain available for discharge planning needs. NUBIA TIAN, RONALDO [phone] * Plan of Care - Vandana Vilchis [...] Patient will remain free of falls Goal: Benedicta Fall Precautions Outcome: Progressing Problem: Daily Care [...] Patient will remain free of falls Goal: Benedicta Fall Precautions Outcome: Progressing * ED Medical Screening Exam - NAA Dunn - 01/27/2025 6:36 PM EDT [facility] Provider Note MEDICAL [...] Pending) There is a bed available in [facility] and the patient will be taken [...] HOSPITAL-HCC) Thrombocytopenia ([facility]) Thyroid disease Surgical History: Past Surgical [...] Routine 9:30 PM EDT UPPER RESPIRATORY VIRAL/BACTERIAL PANEL-BUSINESS SERVICES VICE PRESIDENT ONLY Routine 01/27/2025 9:30 PM EDT LACTIC ACID, VENOUS BLOOD GAS STAT 01/27/2025 9:30 PM EDT HISTOPLASMA/BLASTOMYCES AG, EIA, U Routine 01/27/2025 8:44 PM EDT STREP PNEUMO-LEGIONELLA URINE ANTIGEN Routine 01/27/2025 8:44 PM EDT URINALYSIS, MICROSCOPIC STAT 01/28/20 8:44 PM EDT URINALYSIS-MACROSCOPIC W/REFLEX TO MICROSCOPIC STAT 01/27/2025 8:44 PM EDT HISTOPLASMA/BLASTOMYCES AG, EIA, S Routine 01/27/2025 8:20 PM EDT FUNGITELL [id number] Routine 01/28/20 25 8:20 PM EDT CRYPTOCOCCUS [...] (ABNORMAL) Differential (01/30/2025 7:41 AM EDT) Pathologist [facility] Neutrophils Relative 39.1(L) 40.0 - 80.0 % 01/30/2025 8:09 AM EDT [facility] Lymphocytes Relative 43.8 15.0 - 45.0 % 01/30/2025 8:09 AM EDT [facility] Monocytes Relative 14.2(H) 0.0 - 12.0 % 01/30/2025 8:09 AM EDT [facility] Eosinophils Relative 2.2 0.0 - 8.0 % 01/30/2025 8:09 AM EDT [facility] Basophils Relative 0.7 0.0 - 1.0 % 01/30/2025 8:09 AM EDT [facility] nRBC 0 0 - 0 /100 WBC 01/30/2025 8:09 AM EDT [facility] Neutrophils Absolute 782(L) 1,520 - 8,640 /uL 01/30/2025 8:09 AM EDT [facility] Lymphocytes Absolute 876 570 - 4,860 /uL 01/30/2025 8:09 AM EDT [facility] Monocytes Absolute 284 0 - 1,296 /uL 01/30/2025 8:09 AM EDT [facility] Eosinophils Absolute 44 0 - 864 /uL 01/30/2025 8:09 AM EDT [facility] Basophils Absolute 14 0 - 108 /uL 01/30/2025 8:09 AM EDT [facility] Whole Blood 01/30/2025 7:41 AM EDT 01/30/2025 8:01 AM EDT Feliciano Gomez [facility] BLOOD ORDERABLES Final Resu lt [facility] [address] [id number], [facility] * Tacrolimus level (01/30/2025 5:51 AM EDT) Pathologist [facility] Tacrolimus (LC-MS) 6.5 3.0 - 15.0 ng/mL 01/30/2025 11:11 AM EDT [facility] [...] Hill MD LAB BLOOD ORDERABLES Final Result [facility] [address] [place], [place] [address] * (ABNORMAL) Renal Function Panel w/EGFR (01/30/2025 5:51 AM EDT) Sodium 139 133 - 146 mmol/L 01/30/2025 7:06 AM EDT [facility] Potassium 3.5 3.5 - 5.3 mmol/L 01/30/2025 7:06 AM EDT [facility] Chloride 105 98 - 110 mmol/L 01/30/2025 7:06 AM EDT [facility] CO2 26 21 - 33 mmol/L 01/30/2025 7:06 AM EDT [facility] Anion Gap 8 3 - 16 mmol/L 01/30/2025 7:06 AM EDT [facility] BUN 29(H) 7 - 25 mg/dL 01/30/2025 7:06 AM EDT [facility] Creatinine 1.14 0.60 - 1.30 mg/dL 01/30/2025 7:06 AM EDT [facility] Glucose 114(H) 70 - 100 mg/dL 01/30/2025 7:06 AM EDT [facility] Calcium 8.7 8.6 - 10.3 mg/dL 01/30/2025 7:06 AM EDT [facility] Phosphorus 5.1(H) 2.1 - 4.7 mg/dL 01/30/2025 7:06 AM EDT [facility] Albumin 4.1 3.5 - 5.7 g/dL 01/30/2025 7:06 AM EDT [facility] Osmolality, Calculated 295 278 - 305 mOsm/kg 01/30/2025 7:06 AM EDT [facility] EGFR 83 01/30/2025 7:06 AM EDT [facility] [...] Hill MD LAB BLOOD ORDERABLES Final Result [facility] [address] * (ABNORMAL) Hepatic Function Panel (01/30/2025 5:51 AM EDT) Total Bilirubin 0.3 0.0 - 1.5 mg/dL 01/30/2025 7:06 AM EDT [facility] Bilirubin, Direct 0.05 0.00 - 0.40 mg/dL 01/30/2025 7:06 AM EDT [facility] AST 13 13 - 39 U/L 01/30/2025 7:06 AM EDT [facility] ALT 14 7 - 52 U/L 01/30/2025 7:06 AM EDT [facility] Alkaline Phosphatase 60 36 - 125 U/L 01/30/2025 7:06 AM EDT [facility] Total Protein 5.9(L) 6.4 - 8.9 g/dL 01/30/2025 7:06 AM EDT [facility] Albumin 4.1 3.5 - 5.7 g/dL 01/30/2025 7:06 AM EDT [facility] Bilirubin, Indirect 0.25 0.00 - 1.10 mg/dL 01/30/2025 7:06 AM EDT [facility] Plasma 01/30/2025 5:51 AM EDT 01/30/2025 6:31 AM EDT Carlton Hill MD LAB BLOOD ORDERABLES Final Result [facility] [address] [facility] * Magnesium (01/30/2025 5:51 AM EDT) Magnesium 1.7 1.5 - 2.5 mg/dL 01/30/2025 7:06 AM EDT [facility] Plasma 01/30/2025 5:51 AM EDT 01/30/2025 6:31 AM EDT Carlton Hill MD LAB BLOOD ORDERABLES Final Result [facility] [address] [facility]. [address] * (ABNORMAL) CBC (01/30/2025 5:51 AM EDT) WBC 2.1(L) 3.8 - 10.8 10E3/uL 01/30/2025 6:41 AM EDT [facility] RBC 3.41(L) 4.20 - 5.80 10E6/uL 01/30/2025 6:41 AM EDT [facility] Hemoglobin 11.2(L) 13.2 - 17.1 g/dL 01/30/2025 6:41 AM EDT [facility] Hematocrit 31.9(L) 38.5 - 50.0 % 01/30/2025 6:41 AM EDT [facility] MCV 93.7 80.0 - 100.0 fL 01/30/2025 6:41 AM EDT [facility] MCH 32.9 27.0 - 33.0 pg 01/30/2025 6:41 AM EDT [facility] MCHC 35.1 32.0 - 36.0 g/dL 01/30/2025 6:41 AM EDT [facility] RDW 14.8 11.0 - 15.0 % 01/30/2025 6:41 AM EDT [facility] Platelets 95(L) 140 - 400 10E3/uL 01/30/2025 6:41 AM EDT [facility] MPV 6.4(L) 7.5 - 11.5 fL 01/30/2025 6:41 AM EDT [facility] Whole Blood 01/30/2025 5:51 AM EDT 01/30/2025 6:33 AM EDT Carlton Hill MD LAB BLOOD ORDERABLES Final Result Performing Organization Address City/State/[facility] Co de Phone Number [facility] [address] * CT Neck With IV contrast [...] cavity, parapharyngeal space, and retropharyngeal space. Normal business process expert space, infratemporal fossa, and buccal space. Infrahyoid [...] oral cavity, parapharyngeal space, andretropharyngeal space. Normal business process expert space, infratemporal fossa, andbuccal space. Infrahyoid neck: [...] - 15.0 ng/mL 01/29/2025 9:10 AM EDT [facility] [...] Hill MD LAB BLOOD ORDERABLES Final Result [facility] [address] [place] [address], [facility] * (ABNORMAL) Renal Function Panel w/EGFR (01/29/2025 5:55 AM EDT) Sodium 138 133 - 146 mmol/L 01/29/2025 7:13 AM EDT [facility] Potassium 3.9 3.5 - 5.3 mmol/L 01/29/2025 7:13 AM EDT [facility] Chloride 102 98 - 110 mmol/L 01/29/2025 7:13 AM EDT [facility] CO2 27 21 - 33 mmol/L 01/29/2025 7:13 AM EDT [facility] Anion Gap 9 3 - 16 mmol/L 01/29/2025 7:13 AM EDT [facility] BUN 23 7 - 25 mg/dL 01/29/2025 7:13 AM EDT [facility] Creatinine 1.39(H) 0.60 - 1.30 mg/dL 01/29/2025 7:13 AM EDT [facility] Glucose 108(H) 70 - 100 mg/dL 01/29/2025 7:13 AM EDT [facility] Calcium 9.6 8.6 - 10.3 mg/dL 01/29/2025 7:13 AM EDT [facility] Phosphorus 5.6(H) 2.1 - 4.7 mg/dL 01/29/2025 7:13 AM EDT [facility] Albumin 4.8 3.5 - 5.7 g/dL 01/29/2025 7:13 AM EDT [facility] Osmolality, Calculated 290 278 - 305 mOsm/kg 01/29/2025 7:13 AM EDT [facility] EGFR 65 01/29/2025 7:13 AM EDT [facility] [...] BLOOD ORDERABLES Final Result Performing Organization Address [facility] Co de Phone Number [facility] [address] [facility]. [address] * Hepatic Function Panel (01/29/2025 5:55 AM EDT) Total Bilirubin 0.5 0.0 - 1.5 mg/dL 01/29/2025 7:13 AM EDT [facility] Bilirubin, Direct 0.08 0.00 - 0.40 mg/dL 01/29/2025 7:13 AM EDT [facility] AST 19 13 - 39 U/L 01/29/2025 7:13 AM EDT [facility] ALT 19 7 - 52 U/L 01/29/2025 7:13 AM EDT [facility] Alkaline Phosphatase 59 36 - 125 U/L 01/29/2025 7:13 AM EDT [facility] Total Protein 7.0 6.4 - 8.9 g/dL 01/29/2025 7:13 AM EDT [facility] Albumin 4.8 3.5 - 5.7 g/dL 01/29/2025 7:13 AM EDT [facility] Bilirubin, Indirect 0.42 0.00 - 1.10 mg/dL 01/29/2025 7:13 AM EDT [facility] Plasma 01/29/2025 5:55 AM EDT 01/29/2025 6:41 AM EDT Carlton Hill MD LAB BLOOD ORDERABLES Final Result Performing Organization Address [facility] Co de Phone Number [facility] [address] [facility]. [address] * Magnesium (01/29/2025 5:55 AM EDT) Magnesium 2.5 1.5 - 2.5 mg/dL 01/29/2025 7:13 AM EDT [facility] Plasma 01/29/2025 5:55 AM EDT 01/29/2025 6:41 AM EDT Carlton Hill MD LAB BLOOD ORDERABLES Final Result [facility] [address] * (ABNORMAL) CBC (01/29/2025 5:55 AM EDT) WBC 2.4(L) 3.8 - 10.8 10E3/uL 01/29/2025 6:53 AM EDT [facility] RBC 3.88(L) 4.20 - 5.80 10E6/uL 01/29/2025 6:53 AM EDT [facility] Hemoglobin 12.8(L) 13.2 - 17.1 g/dL 01/29/2025 6:53 AM EDT [facility] Hematocrit 36.6(L) 38.5 - 50.0 % 01/29/2025 6:53 AM EDT [facility] MCV 94.1 80.0 - 100.0 fL 01/29/2025 6:53 AM EDT [facility] MCH 32.9 27.0 - 33.0 pg 01/29/2025 6:53 AM EDT [facility] MCHC 34.9 32.0 - 36.0 g/dL 01/29/2025 6:53 AM EDT [facility] RDW 14.8 11.0 - 15.0 % 01/29/2025 6:53 AM EDT [facility] Platelets 119(L) 140 - 400 10E3/uL 01/29/2025 6:53 AM EDT [facility] MPV 6.2(L) 7.5 - 11.5 fL 01/29/2025 6:53 AM EDT [facility] Whole Blood 01/29/2025 5:55 AM EDT 01/29/2025 6:41 AM EDT Carlton Hill MD LAB BLOOD ORDERABLES Final Result [facility] [address] * Sed Rate (01/29/2025 5:55 AM EDT) Sed Rate 2 0 - 15 mm/hr 01/29/2025 7:03 AM EDT [facility] Whole Blood 01/29/2025 5:55 AM EDT 01/29/2025 6:41 AM EDT Feliciano Gomez IN SCHOOL SUSPENSION COORDINATOR LAB BLOOD ORDERABLES Final Resu lt Performing Organization Address City/[facility]/ZIP Co de Phone Number [facility] [address] [facility]. [address] * C-Reactive Protein (01/29/2025 5:55 AM EDT) Pathologist [facility] CRP 4.1 1.0 - 10.0 mg/L 01/29/2025 7:13 AM EDT [facility] Plasma 01/29/2025 5:55 AM EDT 01/29/2025 6:41 AM EDT Feliciano Gomez [facility] BLOOD ORDERABLES Final Resu lt Performing Organization Address [facility] Co de Phone Number [facility] [address] [facility]. [address] * Giardia Cryptosporidium Antigens (Feces) (01/28/2025 9:27 PM EDT) [facility] Cryptosporidium Ag Negative Negative 2024 8:03 AM EDT [facility] Giardia Ag Negative Negative 01/29/2025 8:03 AM EDT [facility] Comment: Detection of Giardia and Cryptosporidium antigen is more sensitive and specific than microscopy. Because antigens are shed continuously, repeat testing is rarely warranted. Feces 01/28/2025 9:27 PM EDT 01/28/2025 10:07 PM EDT Comment:F Ruby Chiang MD MICROBIOLOGY - GENERAL ORDERAB LES Final Result Performing Organization Address [facility]/ZIP Co de Phone Number [facility] [address] [facility]. [address] * Ova and Parasite Comprehensive w/Giardia (Feces) (01/28/2025 9:27 PM EDT) [facility] O & P Method: Concentration and Trichrome Stain [facility] Results No Amoeba, Ova, Or Parasites Seen. -- O and P examination of additional specimens is recommended only for symptomatic patients, immunosuppressed patients or those with an appropriate travel history. [facility] Feces FECES / Unknown 01/28/2025 9 :27 PM EDT 01/28/2025 10:07 PM EDT Comment:F Ruby Chiang MD MICROBIOLOGY - GENERAL ORDERAB LES Final Result Performing Organization Address [facility]/ZIP Co de Phone Number [facility] [address] [facility]. [address] * Clostridium Difficile Toxin A/B Antigen (01/28/2025 1:21 PM EDT) [facility] CDIFF Tox AGN Negative Negative 01/28/2025 10:35 PM EDT [facility] Comment:C. difficile nucleic acid [...] ORDERABL ES Final Result Performing Organization Address [facility]/ZIP Co de Phone Number [facility] [address] [facility]. [address] * (ABNORMAL) Clostridium difficile DNA Amplification (01/28/2025 1:21 PM EDT) [facility] Clost. Diff DNA Amp. Positive( A) Negative 01/28/2025 11:22 PM EDT [facility] Comment:Positive indicates t oxigenic C. difficile was detected in the sample. Negative indicates that toxigenic C. difficile was not detected above the limit of the detection of the assay. The test methodology is a FDA approved DNA amplification assay. Stool, Liquid FECES / Unknown 01/28/2025 1:21 PM EDT 01/28/2025 1:48 PM EDT Comment:F Feliciano Gomez IN [employer] SUSPENSION COORDINATOR BODY FLUIDS AND STOOLS ORDERABL ES Final Result [facility] [address] [place] [address], [facility] * Phosphatidylethanol Confirmation, B (01/28/2025 7:14 AM EDT) PETH 16:0/18.1 (POPETH) 394 Cutoff: 10 ng/mL 01/30/2025 9:58 AM EDT [facility] Comment: Phosphatidylethanol (PEth) homologues [...] Cutoff: 10 ng/mL 01/30/2025 9:58 AM EDT [facility] Comment: PEth 16:0/18:2 (PLPEth) Reference ranges are not well established PEth Interpretation Positive. 01/30 9:58 AM EDT [facility] Comment: ADDITIONAL INFORMATION This report is intended for use in clinical monitoring and management of patients. It is not intended for use in employment-related testing. This test was developed and its performance characteristics determined by [facility] in a manner consistent with CLIA requirements. This test has not been cleared or approved by the U.S. Food and Drug Administration. Test Performed by: [facility] - [address] [address] Pyrometallurgical Engineer: Kathy Ortiz Ph.D.; CLIA# [id number] Whole Blood 01/28/2025 7:14 AM EDT 01/30/2025 9:58 AM EDT Carlton Hill MD LAB BLOOD ORDERABLES Final Result Performing Organization Address [facility] Co de Phone Number [facility] [address] * (ABNORMAL) Tacrolimus level (01/28/2025 7:14 AM EDT) Pathologist [facility] Tacrolimus (LC-MS) 16.4(H) 3.0 - 15.0 ng/mL 01/28/2025 12:41 PM EDT [facility] [...] BLOOD ORDERABLES Final Result Performing Organization Address [facility] Co de Phone Number [facility] [address] * Renal Function Panel w/EGFR (01/28/2025 7:14 AM EDT) Sodium 138 133 - 146 mmol/L 01/28/2025 9:00 AM EDT [facility] Potassium 3.7 3.5 - 5.3 mmol/L 01/28/2025 9:00 AM EDT [facility] Chloride 102 98 - 110 mmol/L 01/28/2025 9:00 AM EDT [facility] CO2 26 21 - 33 mmol/L 01/28/2025 9:00 AM EDT [facility] Anion Gap 10 3 - 16 mmol/L 01/28/2025 9:00 AM EDT [facility] BUN 17 7 - 25 mg/dL 01/28/2025 9:00 AM EDT [facility] Creatinine 1.14 0.60 - 1.30 mg/dL 01/28/2025 9:00 AM EDT [facility] Glucose 91 70 - 100 mg/dL 01/28/2025 9:00 AM EDT [facility] Calcium 9.3 8.6 - 10.3 mg/dL 01/28/2025 9:00 AM EDT [facility] Phosphorus 4.4 2.1 - 4.7 mg/dL 01/28/2025 9:00 AM EDT [facility] Albumin 4.2 3.5 - 5.7 g/dL 01/28/2025 9:00 AM EDT [facility] Osmolality, Calculated 287 278 - 305 mOsm/kg 01/28/2025 9:00 AM EDT [facility] EGFR 83 01/28/2025 9:00 AM EDT [facility] [...] Hill MD LAB BLOOD ORDERABLES Final Result [facility] [address] * (ABNORMAL) Hepatic Function Panel (01/28/2025 7:14 AM EDT) Total Bilirubin 0.8 0.0 - 1.5 mg/dL 01/28/2025 9:00 AM EDT [facility] Bilirubin, Direct 0.14 0.00 - 0.40 mg/dL 01/28/2025 9:00 AM EDT [facility] AST 17 13 - 39 U/L 01/28/2025 9:00 AM EDT [facility] ALT 19 7 - 52 U/L 01/28/2025 9:00 AM EDT [facility] Alkaline Phosphatase 45 36 - 125 U/L 01/28/2025 9:00 AM EDT [facility] Total Protein 6.2(L) 6.4 - 8.9 g/dL 01/28/2025 9:00 AM EDT [facility] Albumin 4.2 3.5 - 5.7 g/dL 01/28/2025 9:00 AM EDT [facility] Bilirubin, Indirect 0.66 0.00 - 1.10 mg/dL 01/28/2025 9:00 AM EDT [facility] Plasma 01/28/2025 7:14 AM EDT 01/28/2025 8:22 AM EDT Carlton Hill MD LAB BLOOD ORDERABLES Final Result [facility] [address] * (ABNORMAL) Magnesium (01/28/2025 7:14 AM EDT) Magnesium 1.1(L) 1.5 - 2.5 mg/dL 01/28/2025 9:00 AM EDT [facility] Plasma 01/28/2025 7:14 AM EDT 01/28/2025 8:22 AM EDT Carlton Hill MD LAB BLOOD ORDERABLES Final Result [facility] [address] * (ABNORMAL) CBC (01/28/2025 7:14 AM EDT) WBC 2.0(L) 3.8 - 10.8 10E3/uL 01/28/2025 9:10 AM EDT [facility] RBC 3.36(L) 4.20 - 5.80 10E6/uL 01/28/2025 9:10 AM EDT [facility] Hemoglobin 11.5(L) 13.2 - 17.1 g/dL 01/28/2025 9:10 AM EDT [facility] Hematocrit 31.0(L) 38.5 - 50.0 % 01/28/2025 9:10 AM EDT [facility] MCV 92.4 80.0 - 100.0 fL 01/28/2025 9:10 AM EDT [facility] MCH 34.2(H) 27.0 - 33.0 pg 01/28/2025 9:10 AM EDT [facility] MCHC 37.0(H) 32.0 - 36.0 g/dL 01/28/2025 9:10 AM EDT [facility] RDW 14.9 11.0 - 15.0 % 01/28/2025 9:10 AM EDT [facility] Platelets 86(L) 140 - 400 10E3/uL 01/28/2025 9:10 AM EDT [facility] MPV 6.2(L) 7.5 - 11.5 fL 01/28/2025 9:10 AM EDT [facility] Whole Blood 01/28/2025 7:14 AM EDT 01/28/2025 8:22 AM EDT Carlton Hill MD LAB BLOOD ORDERABLES Final Result [facility] [address] * CT Head WO contrast (01/28/2025 [...] Detected Not Detected 01/28/2025 3:11 AM EDT [facility] Vibrio Group (Vibrio cholerae, Vibrio parahaemolyticus) Not Detected Not Detected 01/28/2025 3:11 AM EDT [facility] Yersinia enterocolitica Not Detected Not Detected 01/28/2025 3:11 AM EDT [facility] Shiga toxin 1 Not Detected Not Detected 01/28/2025 3:11 AM EDT [facility] Shiga toxin 2 Not Detected Not Detected 01/28/2025 3:11 AM EDT [facility] Norovirus Not Detected Not Detected 01/28/2025 3:11 AM EDT [facility] Rotavirus Not Detected Not Detected 01/28/2025 3:11 AM EDT [facility] Comment: The Enteric Pathogen Panel [...] FLUIDS AND STOOLS ORDERABLE S Final Result [facility] [address] [place] [address], [facility] * Respiratory viral panel (01/27/2025 9:30 PM EDT) Adenovirus Not Detected Not Detected 01/28/2025 12:20 AM EDT [facility] Coronavirus (229E,HKU1,NL63,OC 43) Not Detected Not Detected 01/28/2025 12:20 AM EDT [facility] SARS-CoV-2 Not Detected Not Detected 01/28/2025 12:20 AM EDT [facility] Human Metapneumovirus Not Detected Not Detected 01/28/2025 12:20 AM EDT [facility] Human Rhinovirus/Enterov irus Not Detected Not Detected 01/28/2025 12:20 AM EDT [facility] Influenza A Not Detected Not Detected 01/28/2025 12:20 AM EDT [facility] Influenza A H1 Not Detected Not Detected 01/28/2025 12:20 AM EDT [facility] Influenza A/H1-2009 Not Detected Not Detected 01/28/2025 12:20 AM EDT [facility] Influenza A H3 Not Detected Not Detected 01/28/2025 12:20 AM EDT [facility] Influenza B Not Detected Not Detected 01/28/2025 12:20 AM EDT [facility] Parainfluenza 1 Not Detected Not Detected 01/28/2025 12:20 AM EDT [facility] Parainfluenza 2 Not Detected Not Detected 01/28/2025 12:20 AM EDT [facility] Parainfluenza 3 Not Detected Not Detected 01/28/2025 12:20 AM EDT [facility] Parainfluenza 4 Not Detected Not Detected 01/28/2025 12:20 AM EDT [facility] Resp. Syncycial Virus A Not Detected Not Detected 01/28/2025 12:20 AM EDT [facility] Resp. Syncycial Virus B Not Detected Not Detected 01/28/2025 12:20 AM EDT [facility] Chlamydia pneumoniae Not Detected Not Detected 01/28/2025 12:20 AM EDT [facility] Mycoplasma pneumoniae Not Detected Not Detected 01/28/2025 12:20 AM EDT [facility] Comment: The Respiratory Viral-Bacterial [...] been sent to the [facility] in accordance with state requirements. For a fact sheet for healthcare providers, see https://www.fda.gov/media/657383/download. For a fact sheet for patients, see https://www.fda.gov/media/881632/download. Nasopharyngeal Swab NASOPHARYNGEAL STRUCTURE / Unknown 01/27/2025 9:30 PM EDT 01/27/2025 10:20 PM EDT Shelby Blanco MD BODY FLUIDS AND STOOLS ORDERABLE S Final Result [facility] [address] [place], [place] [address] * Lactic acid, venous, whole blood (01/27/2025 9:30 PM EDT) Lactate, Shakeel 1.4 0.5 - 1.6 mmol/L 01/27/2025 9:42 PM EDT [facility] Blood, Venous 01/27/2025 9:3 0 PM EDT 01/27/2025 9:39 PM EDT us Pamela JACOME LAB BLOOD ORDERABLES Final Res ult [facility] [address] * (ABNORMAL) Urinalysis, Microscopic (01/27/2025 8:44 PM EDT) RBC, UA <1 0 - 3 /HPF 01/27/2025 9:32 PM EDT [facility] WBC, UA 1 0 - 5 /HPF 01/27/2025 9:32 PM EDT [facility] Hyaline Casts, UA 75(H) 0 - 2 /LPF 01/27/2025 9:32 PM EDT [facility] Mucus, UA Present(A) None Seen /HPF 01/27/2025 9:32 PM EDT [facility] Urine 01/27/2025 8:44 PM EDT 01/27/2025 9:01 PM EDT Pamela JACOME URINE ORDERABLES Final Result Performing Organization Address City/[facility]/ZIP Co de Phone Number [facility] [address] [facility]. [address] * Strep Pneumo-Legionella Urine Antigen (01/27/2025 8:44 PM EDT) Strept Pneumo Ag Negative Negative 01/27/2025 11:12 PM EDT [facility] Legionella Antigen Negative Negative 01/27/2025 11:12 PM EDT [facility] Urine URINE SPECIMEN / Unknown 01/27/2025 8:44 PM EDT 01/27/2025 10:21 PM EDT Narrative [facility] - 01/27/2025 11:12 PM EDT Positive indicates detection of either Streptococcus pneumoniae antigen or Legionella pneumophila serogroup 1 antigen. Negative results do not rule out pneumococcal infection or infection with L. pneumophila serogroup 1, other serogroups of L. pneumophila, or other Legionella species. Shelby Blanco MD URINE ORDERABLES Final Result [facility] [address] * Histoplasma/Blastomyces Ag, EIA, U (01/27/2025 8:44 PM EDT) Histoplasma/Blasto myces Ag Result (Urine) Not Detected Not Detected 01/31/2025 11:06 AM EDT [facility] Comment: No antigen from Histoplasma or Blastomyces detected. False negative results may occur depending on extent of disease, and/or site of infection. Repeat testing on a new specimen if clinically indicated. Histoplasma/Blasto myces Ag Value (Urine) Not Detected ng/mL 01/31/2025 11:06 AM EDT [facility] Comment: ADDITIONAL INFORMATION This test was developed and its performance characteristics determined by [facility] in a manner consistent with CLIA requirements. This test has not been cleared or approved by the U.S. Food and Drug Administration. Test Performed by: [facility] [place] [address] Pyrometallurgical Engineer: Kathy Ortiz Ph.D.; CLIA# [id number] Urine URINE SPECIMEN / Unknown 01/27/2025 8:44 PM EDT 01/31/2025 11:06 AM EDT Shelby Blanco MD URINE ORDERABLES Final Result [facility] [address] * (ABNORMAL) Urinalysis-Macroscopic w/Rfx to Microsco (01/27/2025 8:44 PM EDT) Color, UA Yellow Yellow,Straw 01/27/2025 9:32 PM EDT [facility] Clarity, UA Clear Clear 01/27/2025 9:32 PM EDT [facility] Specific [place], UA 1.015 1.005 - 1.035 01/27/2025 9:32 PM EDT [facility] pH, UA 5.5 5.0 - 8.0 01/27/2025 9:32 PM EDT [facility] Protein, UA 30(A) Negative mg/dL 01/27/2025 9:32 PM EDT [facility] Glucose, UA Negative Negative mg/dL 01/27/2025 9:32 PM EDT [facility] Ketones, UA 20(A) Negative mg/dL 01/27/2025 9:32 PM EDT [facility] Bilirubin, UA Negative Negative 01/27/2025 9:32 PM EDT [facility] Blood, UA Negative Negative 01/27/2025 9:32 PM EDT [facility] Nitrite, UA Negative Negative 01/27/2025 9:32 PM EDT [facility] Urobilinogen, UA <2.0 0.2 - 1.9 mg/dL 01/27/2025 9:32 PM EDT [facility] Leukocyte Esterase, UA Negative Negative 01/27/2025 9:32 PM EDT [facility] Urine 01/27/2025 8:44 PM EDT 01/27/2025 8:53 PM EDT us Pamela JACOME URINE ORDERABLES Final Result Performing Organization Address City/State/[facility] Co de Phone Number [facility] [address] * Phosphatidylethanol Confirmation, B (01/27/2025 8:20 PM EDT) PETH 16:0/18.1 (POPETH) 446 Cutoff: 10 ng/mL 01/30/2025 9:59 AM EDT [facility] Comment: Phosphatidylethanol (PEth) homologues [...] day several days a week) (Reference: W. Melchor Phillips 2018 J. Forensic Sci) PETH 16:0/18.2 (PLPETH) 336 Cutoff: 10 ng/mL 01/30/2025 9:59 AM EDT [facility] Comment: PEth 16:0/18:2 (PLPEth) Reference ranges are not well established PEth Interpretation Positive. 01/30 9:59 AM EDT [facility] Comment: ADDITIONAL INFORMATION This report is intended for use in clinical monitoring and management of patients. It is not intended for use in employment-related testing. This test was developed and its performance characteristics determined by [facility] in a manner consistent with CLIA requirements. This test has not been cleared or approved by the U.S. Food and Drug Administration. Test Performed by: [facility] [place] [address] Pyrometallurgical Engineer: Kathy Ortiz Ph.D.; CLIA# [id number] Whole Blood 01/27/2025 8:20 PM EDT 01/30/2025 9:59 AM EDT us Shelby Blanco MD LAB BLOOD ORDERABLES Final Resul t [facility] [address] [facility] [place] [address], [facility] * BK PCR, Blood (Renal Txp and BMT only) (01/27/2025 8:20 PM EDT) BKV IU DNA Quant, Blood Not Detected IU/mL 01/29/2025 1:48 PM EDT [facility] Comment: Beginning August 23, 2021, [facility] has transitioned BK viral load testing [...] log 10 IU/mL 01/29/2025 1:48 PM EDT [facility] Comment:BKV DNA Not Detected Plasma 01/27/2025 8:20 PM EDT 01/27/2025 9:49 PM EDT Shelby Blanco MD LAB BLOOD ORDERABLES Final Resul t [facility] [address] [place] [address], [facility] * Histoplasma/Blastomyces Ag, EIA, S (01/27/2025 8:20 PM EDT) Histoplasma/Blasto myces Ag Result (Serum) Not Detected Not Detected 01/30/2025 12:49 PM EDT [facility] Comment: No antigen from Histoplasma or Blastomyces detected. False negative results may occur depending on extent of disease, and/or site of infection. Repeat testing on a new specimen if clinically indicated. Histoplasma/Blasto myces Ag Value (Serum) Not Detected ng/mL 01/30/2025 12:49 PM EDT [facility] Comment: ADDITIONAL INFORMATION This test was developed and its performance characteristics determined by [facility] in a manner consistent with CLIA requirements. This test has not been cleared or approved by the U.S. Food and Drug Administration. Test Performed by: [facility] - [place] [address] [place] [address] Pyrometallurgical Engineer: Kathy Ortiz Ph.D.; CLIA# [id number] Serum SERUM SPECIMEN / Unknown 01/27/2025 8:20 PM EDT 01/30/2025 12:49 PM EDT Comment:S Shelby Blanco MD LAB BLOOD ORDERABLES Final Resul t [facility] [address] [place] [id number], [facility] * Fungitell (01/27/2025 8:20 PM EDT) Fungitell Value <31.25 pg/mL 4:19 PM EDT [facility] Reference Value Comment 4:19 PM EDT [facility] Comment:Negative: <60, Posit bradley: >/=60 Clinical Relevance Notes 2024 4:19 PM EDT [facility] Comment: The Fungitell test [...] Cryptococcus, which produce very low levels of (1,3)-kpjj-F-doewxl. This test will not detect the zygomycetes, such as Absidia, Blastomyces, Mucor, and Rhizopus, which are not known to produce (1,3)-oqha-E-bacywm. In addition, the yeast phase of Blastomyces dermatitidis produces little (1,3)-mymx-F-waofzm and may not be detected by the assay. Disclaimer: Notes 02/02/2025 4:19 PM EDT [facility] Comment: This test has been cleared or approved for diagnostic use by the U.S. Food and Drug Administration. Performance characteristics were verified by [employer]. Electronically signed by: Comment 02/02/2025 4:19 PM EDT [facility] Comment:Usha Landin Fungitell Result Comment 02/03/20 4:19 PM EDT [facility] Comment:Negative Interpretation Notes 02/02/2025 4:19 PM EDT [facility] Comment: (1,3) Viaf-I-Imryfv was NOT DETECTED in the sample. Reasons for negative results could include the patient being in the early stage of infection before detectable levels of (1,3) Nghf-W-Znxosr are present. Clinical diagnosis should be made in the context of the patient's complete medical history. Serum 01/27/2025 8:20 PM EDT 02/02/2025 5:07 PM EDT Narrative [facility] - 02/02/2025 5:07 PM EDT PERFORMED AT: [employer] [address] [place] [address] [address] [place], [place] [id number] SURVEILLANCE SENSOR OPERATOR: Cyril Porter, PhD PHONE: [phone] us Shelby Blanco MD LAB BLOOD ORDERABLES Final Resul t [facility] [address] [place] [address], [facility] * Katie-Schafer Virus (EBV) PCR (01/27/2025 8:20 PM EDT) [facility] EBV DNA, Quantitative PCR Not Detected IU/mL 01/28/2025 10:54 AM EDT [facility] EBV DNA, Log10 See Note log 10 IU/mL 01/28/2025 10:54 AM EDT [facility] Comment: Beginning September 05, 2022, [facility] has transitioned EBV viral load testing [...] MD LAB BLOOD ORDERABLES Final Resul t [facility] [address] * Cryptococcus Ag (01/27/2025 8:20 PM EDT) Crypto Ag, Ser Negative Negative 01/27/2025 11:41 PM EDT [facility] Crypto Ag Titer, Ser Not Applicable 01/27/2025 11:41 PM EDT [facility] Serum SERUM SPECIMEN / Unknown 01/27/2025 8:20 PM EDT 01/27/2025 10:04 PM EDT Comment:S Shelby Blanco MD LAB BLOOD ORDERABLES Final Resul t Performing Organization Address City/[facility]/ZIP Co de Phone Number [facility] [address] [facility]. [address] * Cytomegalovirus (CMV) PCR (01/27/2025 8:20 PM EDT) Pathologist [facility] CMV DNA Qnt Not Detected IU/mL 01/29/2025 12:09 PM EDT [facility] Comment:Test methodology for CMV DNA quantification is an FDA-approved nucleic acid amplification assay. The Lower Limit of Quantitation (LLOQ) and Limit of Detection (LoD) for EDTA plasma is 34.5 IU/mL. The linear range of the assay is 34.5- 10,000,000 IU/mL. The reference range is Not Detected. Log10 CMV Qn DNA PI See Note log 10 IU/mL 01/29/2025 12:09 PM EDT [facility] Comment:CMV DNA not detected Plasma 01/27/2025 8:20 PM EDT 01/27/2025 9:49 PM EDT Shelby Blanco MD LAB BLOOD ORDERABLES Final Resul t [facility] [address] * Aspergillus Ag (01/27/2025 8:20 PM EDT) Pathologist [facility] Aspergillus Ag. 0.03 0.00 - 0.49 Index 01/30/2025 5:54 PM EDT [facility] Serum SERUM SPECIMEN / Unknown 01/27/2025 8:20 PM EDT 01/31/2025 4:23 AM EDT Comment:S Shelby Blanco MD BODY FLUIDS AND STOOLS ORDERABLE S Final Result Performing Organization Address [facility]/ZIP Co de Phone Number [facility] [address] [place] [address] * Adenovirus PCR (01/27/2025 8:20 PM EDT) [facility] Adenovirus, Quantitative PCR 0 0 - 0 copies/mL 02/03/2025 1:12 PM EDT [facility] Comment: Testing performed by [facility], [address] [place] [address]. This test(s) was developed and its performance characteristics determined and validated by the Department of Pathology and Laboratory Medicine at [facility]. It has not been cleared or [...] ORDERABLES Final Resul t Performing Organization Address City/[facility]/ZIP Co de Phone Number [facility] [address] [facility] * Blood culture-Peripheral (Blood) (01/27/2025 8:20 PM EDT) [facility] Culture Result No Growth After 5 Days [facility] Blood BLOOD SPECIMEN / Unknown 01/27/2025 8:20 PM EDT 01/27/2025 9:57 PM EDT Pamela JACOME MICROBIOLOGY - GENERAL ORDERAB LES Final Result [facility] [address] [facility]. [address] * Blood culture-Peripheral (Blood) (01/27/2025 8:20 PM EDT) Culture Result No Growth After 5 Days [facility] Blood BLOOD SPECIMEN / Unknown 01/27/2025 8:20 PM EDT 01/27/2025 9:58 PM EDT Pamela JACOME MICROBIOLOGY - GENERAL ORDERAB LES Final Result Performing Organization Address [facility] Co de Phone Number [facility] [address] [facility]. [address] * (ABNORMAL) Lipase (01/27/2025 8:20 PM EDT) Lipase 3(L) 4 - 82 U/L 01/27/2025 9:0 3 PM EDT [facility] Plasma 01/27/2025 8:20 PM EDT 01/27/2025 8:34 PM EDT Pamela JACOME LAB BLOOD ORDERABLES Final Res ult Performing Organization Address City/[facility]/ZIP Co de Phone Number [facility] [address] [facility]. [address] * Hepatic Function Panel (01/27/2025 8:20 PM EDT) Total Bilirubin 0.9 0.0 - 1.5 mg/dL 01/27/2025 9:03 PM EDT [facility] Bilirubin, Direct 0.1 0.0 - 0.4 mg/dL 01/27/2025 9:03 PM EDT [facility] AST 20 13 - 39 U/L 01/27/2025 9:03 PM EDT [facility] ALT 26 7 - 52 U/L 01/27/2025 9:03 PM EDT [facility] Alkaline Phosphatase 55 36 - 125 U/L 01/27/2025 9:03 PM EDT [facility] Total Protein 7.0 6.4 - 8.9 g/dL 01/27/2025 9:03 PM EDT [facility] Albumin 5.0 3.5 - 5.7 g/dL 01/27/2025 9:03 PM EDT [facility] Bilirubin, Indirect 0.8 0.0 - 1.1 mg/dL 01/27/2025 9:03 PM EDT [facility] Plasma 01/27/2025 8:20 PM EDT 01/27/2025 8:34 PM EDT us Pamela JACMOE LAB BLOOD ORDERABLES Final Res ult [facility] [address] * (ABNORMAL) Differential (01/27/2025 8:20 PM EDT) Differential Comments See Note 01/27/2025 10:02 PM EDT [facility] Comment: _Platelets Appear Decreased _Platelet Morphology Normal Scan Result PERFORMED 01/27/2025 10:02 PM EDT [facility] Neutrophils Relative 50.9 40.0 - 80.0 % 01/27/2025 10:02 PM EDT [facility] Lymphocytes Relative 39.0 15.0 - 45.0 % 01/27/2025 10:02 PM EDT [facility] Monocytes Relative 7.3 0.0 - 12.0 % 01/27/2025 10:02 PM EDT [facility] Eosinophils Relative 1.3 0.0 - 8.0 % 01/27/2025 10:02 PM EDT [facility] Basophils Relative 1.5(H) 0.0 - 1.0 % 01/27/2025 10:02 PM EDT [facility] nRBC 1(H) 0 - 0 /100 WBC 01/27/2025 10:02 PM EDT [facility] Neutrophils Absolute 1,018(L) 1,520 - 8,640 /uL 01/27/2025 10:02 PM EDT [facility] Lymphocytes Absolute 780 570 - 4,860 /uL 01/27/2025 10:02 PM EDT [facility] Monocytes Absolute 146 0 - 1,296 /uL 01/27/2025 10:02 PM EDT [facility] Eosinophils Absolute 26 0 - 864 /uL 01/27/2025 10:02 PM EDT [facility] Basophils Absolute 30 0 - 108 /uL 01/27/2025 10:02 PM EDT [facility] PLT Morphology Platelet morphology appears normal 01/27/2025 10:02 PM EDT [facility] Whole Blood 01/27/2025 8:20 PM EDT 01/27/2025 8:57 PM EDT us Pamela JACOME LAB BLOOD ORDERABLES Final Res ult [facility] [address] [place] [address], [facility] * (ABNORMAL) CBC (01/27/2025 8:20 PM EDT) WBC 2.0(L) 3.8 - 10.8 10E3/uL 01/27/2025 10:02 PM EDT [facility] RBC 3.81(L) 4.20 - 5.80 10E6/uL 01/27/2025 10:02 PM EDT [facility] Hemoglobin 12.7(L) 13.2 - 17.1 g/dL 01/27/2025 10:02 PM EDT [facility] Hematocrit 35.1(L) 38.5 - 50.0 % 01/27/2025 10:02 PM EDT [facility] MCV 92.2 80.0 - 100.0 fL 01/27/2025 10:02 PM EDT [facility] MCH 33.3(H) 27.0 - 33.0 pg 01/27/2025 10:02 PM EDT [facility] MCHC 36.1(H) 32.0 - 36.0 g/dL 01/27/2025 10:02 PM EDT [facility] RDW 14.7 11.0 - 15.0 % 01/27/2025 10:02 PM EDT [facility] Platelets 109(L) 140 - 400 10E3/uL 01/27/2025 10:02 PM EDT [facility] Platelet Estimate Decreased 01/27/2025 10:02 PM EDT [facility] MPV 6.4(L) 7.5 - 11.5 fL 01/27/2025 10:02 PM EDT [facility] Whole Blood 01/27/2025 8:20 PM EDT 01/27/2025 8:57 PM EDT [facility] - 01/27/2025 10:02 PM EDT Peripheral blood smear was scanned per review criteria approved by the laboratory medical sales representative. Pamela Wiggins [employer] LAB BLOOD ORDERABLES Final Res ult Performing Organization Address City/[facility]/ZIP Co de Phone Number [facility] [address] [facility]. [address] * Hemoglobin A1c (01/27/2025 8:20 PM EDT) Hemoglobin A1C 4.0 4.0 - 5.6 % 01/27/2025 11:49 PM EDT [facility] Comment: Hemoglobin A1c Interpretation [...] 8:20 PM EDT 01/27/2025 8:57 PM EDT [facility] - 01/27/2025 11:49 PM EDT A1C project?->Yes Pamela [employer] LAB BLOOD ORDERABLES Final Res ult [facility] [address] [facility]. [address] * Basic metabolic panel (01/27/2025 8:20 PM EDT) Sodium 136 133 - 146 mmol/L 01/27/2025 9:03 PM EDT [facility] Potassium 4.0 3.5 - 5.3 mmol/L 01/27/2025 9:03 PM EDT [facility] Chloride 100 98 - 110 mmol/L 01/27/2025 9:03 PM EDT [facility] CO2 25 21 - 33 mmol/L 01/27/2025 9:03 PM EDT [facility] Anion Gap 11 3 - 16 mmol/L 01/27/2025 9:03 PM EDT [facility] BUN 16 7 - 25 mg/dL 01/27/2025 9:03 PM EDT [facility] Creatinine 1.02 0.60 - 1.30 mg/dL 01/27/2025 9:03 PM EDT [facility] Glucose 93 70 - 100 mg/dL 01/27/2025 9:03 PM EDT [facility] Calcium 9.7 8.6 - 10.3 mg/dL 01/27/2025 9:03 PM EDT [facility] Osmolality, Calculated 283 278 - 305 mOsm/kg 01/27/2025 9:03 PM EDT [facility] EGFR >90 01/27/2025 9:03 PM EDT [facility] Comment: As of 2021, [...] JACOME LAB BLOOD ORDERABLES Final Res ult [facility] [address] [place] [address], [facility] * X-ray Chest PA and Lateral [...] 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 0125 (Given - Provider: Vandana Vilchis RN)0907 (Given - Provider: Gladis Tello, ЮЛИЯ)1957 (Given [...] at 0900 0933 (Given - Provider: Elba Vargas RN) predniSONE (DELTASONE) tablet 5 mg (CANCELED) 5 [...] (CANCELED) 75 mL/hr, Intravenous, Continuous, Starting on Tish 01/29/25 at 1230 1532 (New Bag - Provider: Gladis Tello RN) 0036 (New Bag - Provider: Vandana Vilchis RN) electrolyte-R (pH 7.4) (NORMOSOL-R pH 7.4) IV solution () 999 mL/hr, Intravenous, Continuous, Starting on Tish 01/29/25 at 1400, For 1 hour 1533 (New [...] Vandana Vilchis RN)1529 (Given - Provider: Gladis Tello RN)2352 (Given [...] documented as of this encounter Care Teams Leaf Stripper Relationship Specialty Start Date End Date Enedina Mcguire NP [address] [place] [address] PCP - General Internal Medicine 10/05/24 Maureen Pantoja, ЮЛИЯ Txp Post Coordinator Transplant Hepatology 10/28/24 documented as of this encounter
--- OUTSIDE RECORDS SUMMARY | 2025-02-12 10:50 | XMS_ITS | Encounter Summary ---
Author Organization [facility] Address [address] [place] [id number] Care Team Providers Care Emergency Department Aide Name Role Phone Enedina Mcguire NP Primary Care Provider + [phone] Maureen Pantoja RN Unavailable Unavail able Source [...] release of HIV test results or diagnoses. [id number] Reason for Referral * Diagnostic Lab (Routine) - New Request Specialty Diagnoses / Procedures Referred By Shane hernadez Referred To Contact Diagnoses Liver transplant recipient (CMS-HCC) Kidney transplant recipient Immunosuppression ([facility]) Viral disease exposure Procedures BK Virus Quantitative by PCR, Blood [facility] Liver Transplant at [address] [address] Phone: tel: fax: Referral ID Status Reason Start Date Expiration Date V isits Requested Visits Authorized [id number] New Request 02/12/2025 08/11/2025 1 1 * Diagnostic Lab (Routine) - New Request Specialty Diagnoses / Procedures Referred By Contac t Referred To Contact Diagnoses Liver transplant recipient ([facility]-HCC) Kidney transplant recipient Immunosuppression ([facility]) Viral disease exposure Procedures BK Virus Quantitative by PCR, Blood [facility] Liver Transplant at [address] [address] Phone: tel: fax: Referral ID Status Reason Start Date Expiration Date V isits Requested Visits Authorized [id number] New Request 02/12/2025 08/11/2025 1 1 * Diagnostic Lab (Routine) - New Request Specialty Diagnoses / Procedures Referred By Contac t Referred To Contact Diagnoses Liver transplant recipient (CMS-HCC) Kidney transplant recipient Immunosuppression (CMS-HCC) Viral disease exposure Procedures BK Virus Quantitative by PCR, Blood [facility] Liver Transplant at [address] [address] Phone: tel: fax: Referral ID Status Reason Start Date Expiration Date V isits Requested Visits Authorized [id number] New Request 02/12/2025 08/11/2025 1 1 Reason for Visit * Reason Comments Liver Transplant Follow-up Encounter Details Date Type Department Care Team (Late st Contact Info) Description 02/12/2025 10:50 AM EDT Office Visit [facility] Liver Transplant at [address] [address] Chris Orosco MD [address] [place] [phone] Liver transplant recipient (CMS-HCC) (Primary Dx); [...] the past 12 months has th e [employer], oil, or water [employer] threatened to shut off services in your [...] Chris Orosco MD, MPH Transplant hepatology Pager: [phone] * Maureen Pantoja RN - 02/12/2025 10:50 [...] of systemic steroid therapy Liver transplant recipient ([facility]) Kidney transplant recipient Immunosuppressive management encounter following liver transplant ([facility]) Encounter for monitoring tacrolimus therapy Vitamin D deficiency 1 Occurrences starting 02/12/2025 until 08/27/2025 Vitamin D 25 hydroxy Lab Routine History of systemic steroid therapy Vitamin D deficiency 1 Occurrences starting 02/12/2025 until 08/27/2025 Hepatic Function Panel Lab Routine S/P liver transplant ([facility]-H[facility]) Immunosuppression ([facility]) weekly for 52 Occurrences starting 02/12/2025 until 02/12/2026 Renal Function Panel w/EGFR Lab Routine S/P liver transplant ([facility]) Immunosuppression ([facility]) weekly for 52 Occurrences starting 02/12/2025 until 02/12/2026 CBC Lab Routine S/P liver transplant ([facility]) Immunosuppression ([facility]) weekly for 52 Occurrences starting 02/12/2025 until 02/12/2026 Differential Lab Routine S/P liver transplant ([facility]) Immunosuppression ([facility]) weekly for 52 Occurrences starting 02/12/2025 until 02/12/2026 Tacrolimus level Lab Routine S/P liver transplant ([facility]) Immunosuppression ([facility]) weekly for 52 Occurrences starting 02/12/2025 until 02/12/2026 Cytomegalovirus DNA, Quant, RT PCR Lab Routine S/P liver transplant ([facility]) Immunosuppression ([facility]) Viral disease exposure Expected: 02/24/2025 (Approximate), Expires: 08/27/2025 Cytomegalovirus DNA, Quant, RT PCR Lab Routine S/P liver transplant ([facility]) Immunosuppression ([facility]) Viral disease exposure Expected: 03/10/2025 (Approximate), Expires: 08/27/2025 BK Virus Quantitative by PCR, Blood Lab Routine Liver transplant recipient ([facility]) Kidney transplant recipient Immunosuppression ([facility]) Viral disease exposure Expected: 04/28/2025 (Approximate), Expires: 08/13/2026 BK Virus Quantitative by PCR, Blood Lab Routine Liver transplant recipient ([facility]) Kidney transplant recipient Immunosuppression ([facility]) Viral disease exposure Expected: 07/27/2025 (Approximate), Expires: 08/27/2025 BK Virus Quantitative by PCR, Blood Lab Routine Liver transplant recipient ([facility]) Kidney transplant recipient Immunosuppression ([facility]) Viral disease exposure Expected: 10/27/2025 (Approximate), Expires: 08/13/2026 Phosphatidylethanol Confirmation, B Lab Routine Liver transplant recipient ([facility]) Kidney transplant recipient Alcohol use disorder weekly for 52 Occurrences starting 02/12/2025 until 02/12/2026 Magnesium Lab Routine Liver transplant recipient ([facility]) Kidney transplant recipient Immunosuppressive management encounter following liver transplant ([facility]) weekly for 52 Occurrences starting 02/12/2025 until 02/12/2026 Post Kidney Transplant Urine Culture Microbiology Routine Liver transplant recipient ([facility]) Kidney transplant recipient Immunosuppressive management encounter following liver transplant ([facility]) weekly for 52 Occurrences starting 02/12/2025 until 08/13/2026 Urinalysis w/Rfl to Microscopic Lab Routine Kidney transplant recipient Immunosuppressive management encounter following liver transplant ([facility]) weekly for 52 Occurrences starting 02/12/2025 until 08/13/2026 Protein / creatinine ratio, urine Lab Routine Kidney transplant recipient Immunosuppressive management encounter following liver transplant ([facility]) weekly for 52 Occurrences starting 02/12/2025 until 08/13/2026 Microalbumin (Random UR) Lab Routine Kidney transplant recipient Immunosuppressive management encounter following liver transplant ([facility]) weekly for 52 Occurrences starting 02/12/2025 until 08/13/2026 documented as of this encounter Visit Diagnoses Diagnosis Liver transplant recipient ([facility] Primary History of systemic steroid therapy Personal history of systemic steroid therapy Kidney transplant recipient Immunosuppressive management encounter following liver transplant ([facility]) Encounter for monitoring tacrolimus therapy Vitamin D deficiency Unspecified vitamin D deficiency Encounter for therapeutic drug monitoring S/P liver transplant ([facility]) Hypomagnesemia Disorders of magnesium metabolism Hypertension, unspecified type Gastroesophageal reflux disease, unspecified whether esophagitis present Alcohol use disorder Immunosuppression ([facility]) Viral disease exposure Contact with or exposure to other viral diseases documented in this encounter Additional Health Concerns Infection Onset Date Last Indicated Resolved Time C. difficile 01/28/2025 01/28/2025 Assessment Noted Time PHQ-9 Depression Total Score: 2 12/11/19 25 9:00 AM EDT documented as of this encounter Care Teams Emergency Department Aide Relationship Specialty Start Date End Date Enedina Mcguire NP [address] [place] [address] PCP - General Internal Medicine 10/05/24 Maureen Pantoja, ЮЛИЯ Txp Post Coordinator Transplant Hepatology 10/28/24 documented as of this encounter
--- OUTSIDE RECORDS SUMMARY | 2025-02-17 15:15 | XMS_ITS | Encounter Summary ---
Author Organization [facility] Address [address] [place] [address] Care Team Providers Care Labor Relations Or Personnel Negotiator Name Role Phone Enedina Mcguire APRN Primary Care Provider + Reason for Visit * Reason Comments Follow-up Patient following up after liver and kidney transplant. Patient stated he's doing good. Encounter Details Date Type Department Care Team (Late st Contact Info) Description 02/17/2025 3:15 PM EDT Office Visit [facility] INTER[facility] MEDICINE [address] [place] [phone] Enedina Mcguire APRN [address] [place] [address] Encounter for follow-up (Primary Dx); [...] 30 days sober on 08-05-2024 [facility] Utilities Answer Date Recorded In the past 12 months has [employer], gas, oil, or water [employer] threatened to shut off services in your [...] GED or equivalent No 07/09/2024 Preferred Language Sinhala 07/09/2024 PHQ-2 Answer Date Recorded Patient Health [...] and liver. Patient continues to follow under [facility]. Letter was sent in October regarding instructions recommendations for this patient. As stated at about 3 months posttransplant patient will be transition to one of our transplant signal circuit designer group for continuity where they willmanage his liver perspective. liver transplant patient is assigned a posttransplant nurse coordinator Patient did request an updated refill of his once weekly vitamin D supplement Overall patient states he is feeling well. He continues to follow with [facility] about once every 2 months and does have frequent blood work completed Patient states that his liver transplant specialist did provide him clearance to restart on testosterone therapy. Will reach out to [facility] for further confirmation regarding this. [...] Surgeon: Presley Montes De Oca MD; Location: [facility]; Service: Gastroenterology; Laterality: N/A; ENDOSCOPY N/A 07/29/2022 Procedure: ESOPHAGOGASTRODUODENOSCOPY; Surgeon: Presley Montes De Oca MD; Location: [facility]; Service: Gastroenterology; Laterality: N/A; WITH APC [...] , Rfl: vitamin D (ERGOCALCIFEROL) 1.25 MG (70100 UT) capsule capsule, Take 1 capsule by [...] deficiency - vitamin D (ERGOCALCIFEROL) 1.25 MG (60201 UT) capsule capsule; Take 1 capsule by [...] will reach out to his provider at [facility] for further confirmation of clearance of [...] of this note may be an electronic diesel stationary engineer/translation of spoken language to printed textusing the PublicRelayation System. documented in this encounter Plan of Treatment Upcoming Encounters Date Type Department Care Team (Late st Contact Info) Description 04/02/2025 2:15 PM EST Office Visit [facility]IN MANAGEMENT [address] [phone] Vazquez Christie PA-C [address] [place], [place] [phone] 05/18/2025 2:30 PM EST Office Visit [facility] INTER[facility] MEDICINE [address] [place] [phone] Enedina Mcguire APRN [address] [place] [address] Scheduled Orders Name Type Priority Associated Diagnoses [...] as of this encounter Care Teams Labor Relations Or Personnel Negotiator Relationship Specialty Start Date End Date Enedina Mcguire APRN [address] [place] [address] PCP - General Nurse Practitioner 10/27/24 documented as of this encounter
--- OUTSIDE RECORDS SUMMARY | 2025-02-24 12:57 | XMS_ITS | Encounter Summary ---
Author Organization [facility] Address [address] [place] [address] Care Team Providers Care Burlap Man Name Role Phone Enedina Mcguire APRN Primary Care Provider + Encounter Details Date Type Department Care Team (Late st Contact Info) Description 02/20/2025 Telephone [facility] [address] [address] Georgina Rainey MA Social History Tobacco Use Types Packs/Day Years Used Date Smoking Tobacco: Former Cigarettes 4 20 Passive Smoke Exposure: Past Smokeless Tobacco: Current Comments:MARIJUANA USE ABOUT 2X PER WEEK - reports no use 08-05-2024 Alcohol Use Standard Drinks/Week Comments Not Currently 0 (1 standard drink = 0.6 oz pure alcohol) 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 [facility] Utilities Answer Date Recorded In the past 12 months has [employer], [employer], oil, or water [employer] threatened to shut off services in your [...] Brief Depression Severity Measure Score 0 10/02/2022 [facility] - Occupational Stress Questionnaire Answer [...] encounter Miscellaneous Notes * Telephone Encounter - Georgina Rainey MA - 02/20/2025 8:14 AM EDT Left VM for patient to call the office regarding procedure with Dr Song on 02/19/2025. documented in this encounter Plan of Treatment Upcoming Encounters Date Type Department Care Team (Late st Contact Info) Description 04/02/2025 2:15 PM EST Office Visit [facility] PAIN MANAGEMENT [address] [address] Vazquez Christie PA-C [address] [place] [address] 05/18/2025 2:30 PM EST Office Visit [facility] INTERNAL MEDICINE [address] [place] [phone] Enedina Mcguire APRN [address] [place] [address] documented as of this encounter Visit Diagnoses Not on filedocumented in this encounter Additional Health Concerns Assessment Noted Time PHQ-2 Depression Total Score: 1 12/31/19 24 3:25 PM EDT documented as of this encounter Care Teams Burlap Man Relationship Specialty Start Date End Date Enedina Mcguire APRN [address] [place] [address] PCP - General Nurse Practitioner 10/27/24 documented as of this encounter
--- OUTSIDE RECORDS SUMMARY | 2025-02-24 12:57 | XMS_ITS | Encounter Summary ---
Author Organization [facility] Address [address] [place] [address] Care Team Providers Care Aircraft Maintenance Supervisor Name Role Phone Enedina Mcguire APRN Primary Care Provider + Reason for Visit * Reason Onset Date Comments SONG- INJECTION SCHEDULE 02/11/2025 Encounter Details Date Type Department Care Team (Late st Contact Info) Description 02/11/2025 Telephone [facility] [address] [address] Tye Song MD [address] [address] SONG- INJECTION SCHEDULE Social History Tobacco Use Types Packs/Day Years Used Date Smoking Tobacco: Former Cigarettes 4 20 Passive Smoke Exposure: Past Smokeless Tobacco: Current Comments:MARIJUANA USE ABOUT 2X PER WEEK - reports no use 08-05-2024 Alcohol Use Standard Drinks/Week Comments Not Currently 0 (1 standard drink = 0.6 oz pure alcohol) 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 [facility] Utilities Answer Date Recorded In the past 12 months has [employer], gas, oil, or water [employer] threatened to shut off services in your [...] Brief Depression Severity Measure Score 0 10/02/2022 [facility] - [...] Telephone Encounter - Zina Marshall RN - 02/11/2025 2:02 PM EDT S/w patient r/s 02/19 * Telephone Encounter - Jes Quintanilla PCT - 02/11/2025 12:13 PM EDT Caller: JULIEN Relationship to Patient: SELF Phone Number: [phone] Reason For Call: PATIENT CALLING TO GET BACK ON THE SCHEDULE FOR HIS INJECTIONS documented in this encounter Plan of Treatment Upcoming Encounters Date Type Department Care Team (Late st Contact Info) Description 04/02/2025 2:15 PM EST Office Visit [facility] 3000 [facility] 330 [place] [address] Vazquez Christie PA-C [address]60 [facility] [address] [place] [address] 05/18/2025 2:30 PM EST Office Visit [facility] INTERNAL MEDICINE [address] [place] [phone] Enedina Mcguire APRN [address] [place] [address] documented as of this encounter Visit Diagnoses Not on filedocumented in this encounter Additional Health Concerns Assessment Noted Time PHQ-2 Depression Total Score: 1 12/31/19 24 3:25 PM EDT documented as of this encounter Care Teams Aircraft Maintenance Supervisor Relationship Specialty Start Date End Date Enedina Mcguire APRN [address] [place] [id number] PCP - General Nurse Practitioner 10/27/24 documented as of this encounter
--- OUTSIDE RECORDS SUMMARY | 2025-02-24 12:57 | XMS_ITS | Encounter Summary ---
Author Organization [facility] Address [address] [place] [address] Care Team Providers Care Roller Shop Supervisor Name Role Phone Enedina Mcguire APRN Primary Care Provider + Encounter Details Date Type Department Care Team (Late st Contact Info) Description 02/19/2025 Documentation [facility] PAIN MANAGEMENT [address] [address] Tye Song MD [address] [place] [id number] Social History Tobacco Use Types Packs/Day Years [...] Recorded In the past 12 months has [employer], [employer], oil, or water [employer] threatened to shut off services in [...] Score 0 10/02/2022 [facility] - Occupational Stress Questionnaire Answer Date Recorded [...] as of this encounter Progress Notes * Tye Song MD - 02/19/2025 9:31 AM EDT [facility] [address] [place] [address] DATE OF SERVICE: 02/19/2025 PROCEDURE: Fluoroscopically-guided bilateral C2,3, C6,C7 Cervical Medial Branch Nerve Blocks targeting the bilateral C2/3 and C6/7 facet joints PRE-OP DIAGNOSIS: Cervical spondylosis POST-OP DIAGNOSIS: Same CONSENT: Risks, benefits and options were explained to the patient, all questions were answered andwritten informed consent was obtained. ANESTHESIA: Moderate sedation was required to maintain comfort, safety, and cooperation during the procedure. The duration of sedation service was over 10 minutes. Patient received 2mg IV Versed and 0mcg IV fentanyl. Independent observation and monitoring was performed by Lizeth Thorne. The patient's level of consciousness and physiologic status was continually monitored with pulse oximetry, EKG from 0917 to 0927. There were no complications or adverse events during sedation. After the sedation patient was taken to the recovery area. PROCEDURE NOTE: A pre-procedural time out was performed to confirm the correct patient, procedure, side, and site. The patient was placed in prone position. A sterile field was prepped in standard fashion using Chlorhexidine and draped with sterile towels. The selected medial branch nerves were identified using APand Lateral fluoroscopic view. The overlying skin and subcutaneous tissue was anesthetized with 1% lidocaine. A 25 gauge 3.5 inch spinal needle was advanced using intermittent fluoroscopy toward the center of the articular pillar at the bilateral C2,3,6,7 levels. Needle placement was confirmed withbiplanar fluoroscopic imaging. Following negative aspiration, 0.5 mL of Bupivacaine 0.5% was injected at each location. The needles were re-styletted and withdrawn. The patient's skin was cleaned with alcohol and the injection sites covered with bandages. EBL: None COMPLICATIONS: None The patient was monitored until meeting established discharge criteria. Vital signs remained stablethroughout the procedure and in the recovery area. There were no immediate complications and the patient tolerated the procedure well. Sensory and motor exam was unchanged from baseline. The patient received written discharge instructions prior to discharge. FOLLOW UP: Clinic staff will call to schedule #2 medial branch block ADDITIONAL NOTES: [facility] Pain Management Tye Song MD Codes: [id number] documented in this encounter Plan of Treatment Upcoming Encounters Date Type Department Care Team (Late st Contact Info) Description 04/02/2025 2:15 PM EST Office Visit [facility] PAIN MANAGEMENT [address] [phone] Vazquez Christie PA-C [address] [address] 05/18/2025 2:30 PM EST Office Visit [facility] INTERNAL MEDICINE [address] [place] [address] Enedina Mcguire APRN [address] [place], [place] [phone] documented as of this encounter Visit Diagnoses Not on filedocumented in this encounter Additional Health Concerns Assessment Noted Time PHQ-2 Depression Total Score: 1 12/31/19 24 3:25 PM EDT documented as of this encounter Care Teams Roller Shop Supervisor Relationship Specialty Start Date End Date Enedina Mcguire APRN [address] [place] [address] PCP - General Nurse Practitioner 10/27/24 documented as of this encounter
--- OUTSIDE RECORDS SUMMARY | 2025-02-24 12:57 | XMS_ITS | Encounter Summary ---
[facility] Address [address] [place] [address] Care Team Providers Care Engraver Apprentice Decorative Name Role Phone Enedina Mcguire APRN Primary Care Provider + Reason for Visit * Reason Onset Date Comments Results 02/20/2025 Encounter Details Date Type Department Care Team ([facility] st Contact Info) Description 02/20/2025 Telephone [facility] INTERNAL MEDICINE [address] [place] [address] Enedina Mcguire APRN [address] [place] [address] Results Social History Tobacco Use Types Packs/Day [...] Recorded In the past 12 months has [employer], [employer], oil, or water [employer] threatened to shut off services in [...] Depression Severity Measure Score 0 10/02/2022 [facility] - Occupational Stress Questionnaire Answer Date [...] encounter Miscellaneous Notes * Telephone Encounter - Valarie Rangel CMA - 02/20/2025 2:42 PM EDT Pt sent [employer] message as well, message sent to Enedina on results * Telephone Encounter - Liliana Glez RegSched Rep - 02/20/2025 1:34 PM EDT Caller: Julien Anderson Relationship: Self Best call back number: [phone] What test was performed: TESTOSTERONE TEST When was the test performed: EARLIER THIS WEEK Where was the test performed: IN OFFICE Additional notes: THE PATIENT HAS QUESTIONS ABOUT HIS TEST RESULTS HE WOULD LIKE A CALL BACK TODAY IF POSSIBLE documented in this encounter Plan of Treatment Upcoming Encounters Date Type Department Care Team (Late st Contact Info) Description 04/02/2025 2:15 PM EST Office Visit [facility] PAIN [facility]EMENT 3000 [facility] [address] [place] [phone] Vazquez Christie PA-C [address] [address] 05/18/2025 2:30 PM EST Office Visit [facility] INTERNAL MEDICINE [address] [place] [phone] Enedina Mcguire APRN [address] [place] [address] documented as of this encounter Visit Diagnoses Not on filedocumented in this encounter Additional Health Concerns Assessment Noted Time PHQ-2 Depression Total Score: 1 12/31/19 24 3:25 PM EDT documented as of this encounter Care Teams Engraver Apprentice Decorative Relationship Specialty Start Date End Date Enedina Mcguire APRN [address] [place] [address] [phone] PCP - General Nurse Practitioner 10/27/24 documented as of this encounter
--- OUTSIDE RECORDS SUMMARY | 2025-02-24 12:58 | XMS_ITS | Encounter Summary ---
Author Organization [facility] Address [address] [place] [address] Care Team Providers Care Central Office Inspector Name Role Phone Enedina Mcguire NP Primary Care Provider + [phone] Maureen Pantoja RN Unavailable Unavail able Source [...] release of HIV test results or diagnoses. [id number] Health Encounter Details Date Type Department Care Team (Late st Contact Info) Description 01/06/2025 Social Work [facility] Liver Transplant at [address] [place] [phone] Kaylin Willard MSW Social History Tobacco Use [...] Recorded In the past 12 months has [employer], gas, oil, or water [employer] threatened to shut off services in your [...] to meet with patient today. NUBIA Barros, [facility] Transplant Tree And Shrub Worker documented in this encounter Plan of [...] documented as of this encounter Care Teams Central Office Inspector Relationship Specialty Start Date End Date Enedina Mcguire NP [address] [place] [address] PCP - General Internal Medicine 10/05/24 Maureen Pantoja, ЮЛИЯ Txp Post Coordinator Transplant Hepatology 10/28/24 documented as of this encounter
--- OUTSIDE RECORDS SUMMARY | 2025-02-24 12:58 | XMS_ITS | Encounter Summary ---
Author Organization [facility] Address [address] [place] [address] Care Team Providers Care Assistant To The Vice President Name Role Phone Enedina Mcguire NP Primary Care Provider + [phone] Maureen Pantoja RN Unavailable Unavail able Source [...] release of HIV test results or diagnoses. [id number] Reason for Visit * Reason Comments Medication Management Encounter Details Date Type Department Care Team (Late st Contact Info) Description 01/26/2025 Telephone [facility] Liver Transplant at [address] [address] Maureen Pantoja, wood flooring specialist Management Social History Tobacco Use Types Packs/Day Years Used Date Smoking Tobacco: Former Cigarettes Smokeless Tobacco: Current Alcohol Use Standard Drinks/Week Comments Yes 0 (1 standard drink = 0.6 oz pure alcohol) History of alcohol abuse, reports no use in 3 week- typically endorses use as 4 glasses of wine a days Utilities Answer Date Recorded In the past 12 months has [employer], gas, oil, or water [employer] [facility] threatened to shut off services in [...] today. Med list updated. Patient notified via [employer]. CMV monitoring DUE ~ 02/09, 02/23, 03/09. CMV PCR orders placed. Txp MA to send to outside lab. 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
--- OUTSIDE RECORDS SUMMARY | 2025-02-24 12:58 | XMS_ITS | Encounter Summary ---
[facility] Address [address] [place] [address] Care Team Providers Care Kitchen Runner Name Role Phone Enedina Mcguire APRN Primary Care Provider + Encounter Details Date Type Department Care Team ([facility] st Contact Info) Description 02/17/2025 Telephone [facility] INTERNAL MEDICINE [address] [place] [address] Enedina Mcguire APRN [address] [place] [address] Social History Tobacco Use Types [...] Recorded In the past 12 months has [employer], [employer], oil, or water [employer] threatened to shut off services in your [...] Measure Score 0 10/02/2022 [facility] - Occupational Stress Questionnaire [...] Telephone Encounter - Enedina Mcguire APRN - 02/18/2025 8:47 AM EDT Update from staff received. Will wait to receive results of lab work prior to starting medication * Telephone Encounter - Enedina Mcguire APRN - 02/17/2025 3:52 PM EDT Please reach out to Dr. Orosco at [facility] (Phone: tel: ) Patient stated that he was provided clearance to restart testosterone therapy via your office. I just wanted to confirm this. I did order an updated testosterone free and total level to be completed with his usual lab work that is ordered. Are there any additional labs that are needed or any additional concerns and need to be aware of as he is a transplant patient? Want to confirm with this provider regarding testosterone documented in this encounter Plan of Treatment Upcoming Encounters Date Type Department Care Team (Late st Contact Info) Description 04/02/2025 2:15 PM EST Office Visit [facility] PAIN [facility]NAGEMENT [address] [address] Vazquez Christie PA-C 1760 [facility] [address] [place] [phone] 05/18/2025 2:30 PM EST Office Visit [facility] INTERNAL MEDICINE [address] [place] [phone] Enedina Mcguire APRN [address] [place] [phone] documented as of this encounter Visit Diagnoses Not on filedocumented in this encounter Additional Health Concerns Assessment Noted Time PHQ-2 Depression Total Score: 1 12/31/19 24 3:25 PM EDT documented as of this encounter Care Teams Kitchen Runner Relationship Specialty Start Date End Date Enedina Mcguire APRN [address] [place] [address] PCP - General Nurse Practitioner 10/27/24 documented as of this encounter
--- OUTSIDE RECORDS SUMMARY | 2025-02-24 12:58 | XMS_ITS | Encounter Summary ---
[facility] [address] [place] [address] Care Team Providers Care Inventory And Pricing Associate Name Role Phone Enedina Mcguire APRN Primary Care Provider + Encounter Details Date Type Department Care Team ([facility] st Contact Info) Description 02/23/2025 Results Follow-Up [facility] INTERNAL MEDICINE [address] [place] [address] Enedina Mcguire APRN [address] [place], [place] [phone] Social History Tobacco Use Types Packs/Day Years [...] Recorded In the past 12 months has [employer], [employer], oil, or water [employer] threatened to shut off services in [...] Brief Depression Severity Measure Score 0 10/02/2022 [facility] of Occupat ional Health [...] GED or equivalent No 07/09/2024 Preferred Language Romansh 07/09/2024 PHQ-2 Answer Date Recorded Patient Health [...] Description 04/02/2025 2:15 PM EST Office Visit [facility] PAIN MANAGEMENT [address] [phone] Vazquez Christie PA-C 1760 [facility] [address] [place] [address] 05/18/2025 2:30 PM EST Office Visit [facility] INTERNAL MEDICINE [address] [place] [address] Enedina Mcguire APRN [address] [place], [place] [phone] documented as of this encounter Visit Diagnoses Not on filedocumented in this encounter Additional Health Concerns Assessment Noted Time PHQ-2 Depression Total Score: 1 12/31/19 24 3:25 PM EDT documented as of this encounter Care Teams Inventory And Pricing Associate Relationship Specialty Start Date End Date Enedina Mcguire APRN [address] [place] [address] [phone] PCP - General Nurse Practitioner 10/27/24 documented as of this encounter
--- OUTSIDE RECORDS SUMMARY | 2025-02-24 12:58 | XMS_ITS | Encounter Summary ---
[facility] [address] [place] [address] Care Team Providers Care Medical Lab Technologist Name Role Phone Enedina Mcguire APRN Primary Care Provider + Reason for Visit * Reason Comments Med Refill Encounter Details Date Type Department Care Team (Late st Contact Info) Description 09/12/2022 Refill [facility] GASTROENTEROLOGY 1780 [facility] [address] [place] [address] Lj Tapia APRN [address] [place] [address] Social History Tobacco Use Types Packs/Day Years [...] or training? Not on file Preferred Language Norwegian 07/03/2022 Sex and Gender Information Value Date Recorded Sex Assigned at Male 08/20/2024 8:28 PM EDT Legal Sex Male 7:45 AM EDT Gender Identity Not on file Sexual Orientation Not on file documented as of this encounter Plan of Treatment Upcoming Encounters Date Type Department Care Team (Late st Contact Info) Description 04/02/2025 2:15 PM EST Office Visit [facility] PA[facility]EMENT [address] [phone] Vazquez Christie PA-C [address] [place] [address] [place] [address] 05/18/2025 2:30 PM EST Office Visit [facility] INTERNAL MEDICINE [address] [place] [phone] Enedina Mcguire APRN [address] [place] [address] documented as of this encounter Visit Diagnoses Not on filedocumented in this encounter Care Teams Medical Lab Technologist Relationship Specialty Start Date End Date Enedina Mcguire APRN [address] [place] [address] [phone] PCP - General Nurse Practitioner 10/27/24 documented as of this encounter
--- OUTSIDE RECORDS SUMMARY | 2025-02-24 12:58 | XMS_ITS | Encounter Summary ---
Author Organization [facility] Address [address] [place] [address] Care Team Providers Care Wrapper Operator Name Role Phone Enedina Mcguire NP Primary Care Provider + [phone] Maureen Pantoja RN Unavailable Unavail able Source [...] release of HIV test results or diagnoses. [id number] Health Encounter Details Date Type Department Care Team (Late st Contact Info) Description 01/27/2025 Telephone [facility] Liver Transplant at [address] [address] Marlene Ro MA Social History [...] Recorded In the past 12 months has [employer], gas, oil, or water [employer] threatened to shut off services in your [...] AM EDT Called and spoke to Gladys, regulatory attorney occupational therapist rehab manager, and taran Rosario about his 1 [...] as of this encounter Care Teams Wrapper Operator Relationship Specialty Start Date End Date Enedina Mcguire NP [address] [place] [address] PCP - General Internal Medicine 10/05/24 Maureen Pantoja, RN Txp Post Coordinator Transplant Hepatology 10/28/24 documented as of this encounter
--- OUTSIDE RECORDS SUMMARY | 2025-02-24 12:58 | XMS_ITS | Encounter Summary ---
Author Organization [facility] Address [address] [place] [address] Care Team Providers Care Electronic Equipment Installer Name Role Phone Jony Conde MD Primary Care Provider [phone] Lj Tapia ARM MAKER Unavailable [phone] Enedina Mcguire ARM MAKER Primary Care Provider + Nuria Fall DIRECTOR HUMAN SERVICES Unavailable Unavaila ble Encounter Details Date Type Department Care Team (Late st Contact Info) Description 07/03/2022 Orders Only External Location [address] [place] [address] Presley Montes De Oca MD [address] [place] [phone] Social History Tobacco Use Types Packs/Day Years [...] on filedocumented in this encounter Care Teams Electronic Equipment Installer Relationship Specialty Start Date End Date Jony Conde MD [address] [place] [address] [address] [place] [address] PCP - General 07/18/22 12/03/22 Enedina Mcguire APRN [address] [place] [address] PCP - General 12/04/22 Lj Tapia APRN [facility]0 [place], [place] [phone] Referring Physician Gastroenterology 07/18/22 Nuria Fall LPN [facility] TCM Nurse 07/24/24 08/23/24 documented as of this encounter
--- OUTSIDE RECORDS SUMMARY | 2025-02-24 12:58 | XMS_ITS | Encounter Summary ---
Author Organization [facility] Address [address] [place] [address] Care Team Providers Care Local Combination Truck Driver Name Role Phone Enedina Mcguire APRN Primary Care Provider + Reason for Visit * Reason Comments Med Refill Encounter Details Date Type Department Care Team (Late st Contact Info) Description 07/20/2022 Refill [facility] GASTROENTEROLOGY 1780 [facility] 202 [place] [address] Lj Tapia APRN [address] [place] [address] Secondary esophageal varices without bleeding Social History [...] or training? Not on file Preferred Language Estonian 07/03/2022 Sex and Gender Information Value Date Recorded Sex Assigned at Male 08/20/2024 8:28 PM EDT Legal Sex Male 7:45 AM EDT Gender Identity Not on file Sexual Orientation Not on file documented as of this encounter Plan of Treatment Upcoming Encounters Date Type Department Care Team (Late st Contact Info) Description 04/02/2025 2:15 PM EST Office Visit [facility] PAIN MANAGEMENT 3000 [facility] 330 [place] [address] Vazquez Christie PA-C [address] [place] [address] [address] [place] [address] 05/18/2025 2:30 PM EST Office Visit [facility] INTERNAL MEDICINE [address] [place] [address] Enedina Mcguire APRN [address] [place] [address] documented as of this encounter Visit Diagnoses Diagnosis Secondary esophageal varices without bleeding documented in this encounter Additional Health Concerns Infection Onset Date Last Indicated Resolved Time COVID Screen (preop/placement) 07/28/2022 07/28/2022 07/29/2022 12:00 AM EDT documented as of this encounter Care Teams Local Combination Truck Driver Relationship Specialty Start Date End Date Enedina Mcguire APRN [address] [place] [address] PCP - General Nurse Practitioner 10/27/24 documented as of this encounter
--- OUTSIDE RECORDS SUMMARY | 2025-02-24 12:58 | XMS_ITS | Encounter Summary ---
Author Organization [facility] Address [address] [place] [address] Care Team Providers Care Beater Machine Operator Name Role Phone Enedina Mcguire NP Primary Care Provider + [phone] Maureen Pantoja RN Unavailable Unavail able Source [...] release of HIV test results or diagnoses. [id number] Reason for Visit * Reason Comments Results Encounter Details Date Type Department Care Team (Late st Contact Info) Description 01/23/2025 Telephone [facility] Liver Transplant at [address] [address] Maureen Pantoja, RN Results Social [...] Recorded In the past 12 months has [employer], gas, oil, or water company threatened to [...] that he is on his way to [facility] ED. Message routed to Inpatient Txp Team. * Maureen Pantoja RN - 01/27/2025 2:28 PM EDT Reviewed with Dr. Alonzo who recommends that patient go to ED. Local [place], but would prefer [facility] to do full infectious work-up in context of febrile neutropenia. Spoke with patient again. Patient very reluctant to go to ED. Advised [place] to go to local hospital, but that he needs further testing to rule out infection and get treatment if needed. Patient agreeable to going to local hospital. Patient requested QBotixt message stating what to tell [facility] ED. Message sent. * Maureen Pantoja RN [...] 01/27/2025 10:25 AM EDT FK 11.3 Received [employer] message from patient's that patient began feeling [...] documented as of this encounter Care Teams Beater Machine Operator Relationship Specialty Start Date End Date Enedina Mcguire NP [address] [place] [address] PCP - General Internal Medicine 10/05/24 Maureen Pantoja, RN Txp Post Coordinator Transplant Hepatology 10/28/24 documented as of this encounter
--- OUTSIDE RECORDS SUMMARY | 2025-02-24 12:58 | XMS_ITS | Encounter Summary ---
Author Organization [facility] Address [address] [place] [address] Care Team Providers Care Fishing Floats Assembler Name Role Phone Enedina Mcguire APRN Primary Care Provider + Encounter Details Date Type Department Care Team (Latest Contact Info) Description 02/17/2025 Travel Social History Tobacco Use Types Packs/Day Years Used Date Smoking Tobacco: Former Cigarettes 4 20 Passive Smoke Exposure: Past Smokeless Tobacco: Current Comments:MARIJUANA USE ABOUT 2X PER WEEK - reports no use 08-05-2024 Alcohol Use Standard Drinks/Week Comments Not Currently 0 (1 standard drink = 0.6 oz pure alcohol) 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 [facility] Utilities Answer Date Recorded In the past 12 months has [employer], gas, oil, or water [employer] threatened to shut off services in your [...] Brief Depression Severity Measure Score 0 10/02/2022 [facility] of Occupat ional Health - Occupational Stress [...] GED or equivalent No 07/09/2024 Preferred Language Kuwaiti 07/09/2024 PHQ-2 Answer Date Recorded Patient Health [...] Description 04/02/2025 2:15 PM EST Office Visit [facility] PAIN MANAGEMENT 3000 [facility] 330 [place] [address] Vazquez Christie PA-C 1760 [facility] [address] [place] [address] 05/18/2025 2:30 PM EST Office Visit [facility] INTERNAL MEDICINE [address] [place] [phone] Enedina Mcguire APRN [address] [place] [address] documented as of this encounter Visit Diagnoses Not on filedocumented in this encounter Additional Health Concerns Assessment Noted Time PHQ-2 Depression Total Score: 1 12/31/19 24 3:25 PM EDT documented as of this encounter Care Teams Fishing Floats Assembler Relationship Specialty Start Date End Date Enedina Mcguire APRN [address] [place] [address] PCP - General Nurse Practitioner 10/27/24 documented as of this encounter
--- OUTSIDE RECORDS SUMMARY | 2025-02-24 12:58 | XMS_ITS | Encounter Summary ---
Author Organization [facility] Address [address] [place] [address] Care Team Providers Care Laundry Machine Tender Name Role Phone Enedina Mcguire NP Primary Care Provider + [phone] Maureen Pantoja RN Unavailable Unavail able Source [...] release of HIV test results or diagnoses. [id number] Reason for Visit * Reason Onset Date Comments Medication Refill 01/21/2025 Encounter Details Date Type Department Care Team (Late st Contact Info) Description 01/21/2025 Refill [facility] Liver Transplant at [place] [phone] [place] [address] Lydia Sanchez MD [address] [place] [address] Liver/[place] [address] Encounter for therapeutic drug monitoring; S/P liver transplant ([facility]); Hypomagnesemia; Kidney transplant recipient; Hypertension, unspecified [...] 01/06/2025 Leisa Juarez MD Next [facility] Last labs: Lab Results Component Value [...] for therapeutic drug monitoring S/P liver transplant ([facility]) Hypomagnesemia Disorders of magnesium metabolism Kidney [...] documented as of this encounter Care Teams Laundry Machine Tender Relationship Specialty Start Date End Date Enedina Mcguire NP [address] [place] [address] PCP - General Internal Medicine 10/05/24 Maureen Pantoja RN Txp Post Coordinator Transplant Hepatology 10/28/24 documented as of this encounter
--- OUTSIDE RECORDS SUMMARY | 2025-02-24 12:58 | XMS_ITS | Encounter Summary ---
Author Organization [facility] Address [address] [place] [address] Care Team Providers Care Grounds Keeper Name Role Phone Enedina Mcguire NP Primary Care Provider [phone] Maureen Pantoja RN Unavailable Unavail able Source [...] release of HIV test results or diagnoses. [id number] Health Encounter Details Date Type Department Care Team (Late st Contact Info) Description 01/20/2025 Chart Note [facility] at [address] [place] [phone] Marlene Ro MA 01/20 Labs entered from [facility] Social History Tobacco Use Types Packs/Day Years Used Date Smoking Tobacco: Former Cigarettes Smokeless Tobacco: Current Alcohol Use Standard Drinks/Week Comments Yes 0 (1 standard drink = 0.6 oz pure alcohol) History of alcohol abuse, reports no use in 3 week- typically endorses use as 4 glasses of wine a days Utilities Answer Date Recorded In the past 12 months has [employer], gas, oil, or water [employer] threatened to shut off services in your [...] times a week 01/28/2025 12:00 AM EDT Marixa Mock RN Q2: How many drinks containing alcohol do you have on a typical day when you are drinking? 1 or 2 01/28/2025 12:00 AM EDT Ginette Mock RN Q3: How often do you have six or more drinks on one occasion? Weekly 01/28/2025 12:00 AM EDT Marixa Mock RN documented as of this encounter Progress Notes * Marlene Ro MA - 01/20/2025 3:38 PM EDT Images from the original note were not included. 01/20 Labs entered from [facility] documented in this encounter Plan [...] * Tacrolimus level (01/20/2025 12:03 PM EDT) Pathologist [facility] Tacrolimus Lvl 11.3 6 - 15 ng/mL Whole Blood Result [facility] Provider LAB BLOOD ORDERABLES Denisse l Result * (ABNORMAL) Magnesium (01/20/2025 12:03 PM EDT) [facility] Magnesium 1.1(A) 1.6 - 2.4 mg/dL Plasma Narrative Resulting Agency Comment [facility] Result [facility] LAB BLOOD ORDERABLES Denisse l Result * (ABNORMAL) Renal Function Panel w/o EGFR (01/20/2025 12:03 PM EDT) [facility] Glucose 101 BUN 14 CO2 23(A) 13 - 22 mmol/L Creatinine 1.10 Potassium 3.8 Sodium 141 Chloride 106 Phosphorus 4.2 2.5 - 4.9 mg/dL Calcium 10.2 EGFR 74 mg/dL Albumin 4.9 3.5 - 5.0 g/dL Blood Narrative Resulting Agency Comment [facility] Result [facility] LAB BLOOD ORDERABLES Denisse l Result * Creatinine, urine, random (01/20/2025 12:03 PM EDT) [facility] Creatinine, Urine 78 Urine Narrative Resulting Agency Comment [facility] Result [facility] Provider URINE ORDERABLES Final Re sult * (ABNORMAL) Urinalysis w/Rfl to Microscopic (01/20/2025 12:03 PM EDT) [facility] Glucose, UA Negative Negative Ketones, UA Negative Negative Blood, UA Negative Negative Bilirubin, UA Negative Negative Urobilinogen, UA Normal Normal Protein, UA Trace(A) Negative Nitrite, UA Negative Negative pH, UA 5.5 4.5 - 8.0 Specific [place], UA 1.020 1.005 - 1.030 Clarity, UA Clear Clear Color, UA Yellow Light Yellow, Yellow Urine Narrative Resulting Agency Comment [facility] Result [facility] Provider URINE ORDERABLES Final [...] 10^3/mL Blood Narrative Resulting Agency Comment [facility] Result [facility] Provider LAB BLOOD ORDERABLES Denisse l Result * Urine Protein, Tot, Random (w/o Creat) (01/20/2025 12:03 PM EDT) Total Protein, Ur 25.0 Urine Narrative Resulting Agency Comment [facility] Result [facility] Provider URINE ORDERABLES Final Re sult * Hepatic Function Panel (01/20/2025 12:03 PM EDT) Bilirubin, Direct 0.2 Bilirubin, Indirect 0.6 Alkaline Phosphatase 52 ALT 20 AST 28 Total Bilirubin 0.8 Total Protein 7.1 Plasma Narrative Resulting Agency Comment [facility] us Historical Provider LAB BLOOD [...] documented as of this encounter Care Teams Grounds Keeper Relationship Specialty Start Date End Date Enedina Mcguire NP [address] [place] [id number] PCP - General Internal Medicine 10/05/24 Maureen Pantoja, ЮЛИЯ Txp Post Coordinator Transplant Hepatology 10/28/24 documented as of this encounter
--- OUTSIDE RECORDS SUMMARY | 2025-02-24 12:58 | XMS_ITS | Clinical Summary ---
Author Organization [facility] Address [address] [place] [address] Care Team Providers Care Coal Trimmer Name Role Phone Enedina Mcguire APRN Primary Care Provider + Allergies No known active allergies Medications folic acid (FOLVITE) 1 MG tablet Take 1 tablet by mouth Daily. 07/13/19 25 Active topiramate (TOPAMAX) 25 MG tablet Take by mouth. 07/31/19 25 Active lidocaine (LIDODERM) 5 % Place 1 patch on the skin as directed by provider Daily. 07/30/19 25 Active levothyroxine (SYNTHROID, LEVOTHROID) 75 MCG tabletIndications: Acquired hypothyroidism Take 1 tablet by mouth Daily. 30 tablet 10/21/19 25 Active FLUoxetine (PROzac) 20 MG capsule Take 1 capsule by mouth Daily. 10/18/19 25 Active loratadine (CLARITIN) 10 MG tablet Take 1 tablet by mouth. 10/18/19 25 Active methocarbamol (ROBAXIN) 500 MG tablet Take 1 tablet by mouth 2 (Two) Times a Day. 10/18/19 25 Active tacrolimus (PROGRAF) 1 MG capsule Take by mouth. Take 5 capsules (5 mg total) by mouth every morning AND 6 capsules (6 mg total) at bedtime. Use as directed. Indications: Prevention of Kidney Transplant Rejection, Prevention of Liver Transplant Rejection. 12/03/19 25 Active HYDROmorphone (DILAUDID) 2 MG tablet Take 1 tablet by mouth Every 6 (Six) Hours. 11/26/19 25 Active predniSONE (DELTASONE) 5 MG tablet Take 1.5 tablets by mouth Daily. 12/06/19 25 Active valGANciclovir (VALCYTE) 450 MG tablet Take 1 tablet by mouth Daily. Active naltrexone (DEPADE) 50 MG tablet Take 1 tablet by mouth Daily. Active cyclobenzaprine (FLEXERIL) 5 MG tablet Take 1 tablet by mouth 3 (Three) Times a Day. 01/31/20 Active acetaminophen (TYLENOL) 325 MG tablet Take 3 tablets by mouth Every 8 (Eight) Hours As Needed. 01/31/20 25 025 Active gabapentin (NEURONTIN) 300 MG capsule Take 1 capsule by mouth 3 (Three) Times a Day. 02/13/20 25 Active MAGNESIUM CHLORIDE PO Take by mouth. Activ e NIFEdipine XL (PROCARDIA XL) 30 MG 24 hr tablet Take 1 tablet by mouth Daily. 02/16/20 25 Active vitamin D (ERGOCALCIFEROL) 1.25 MG (76124 UT) capsule capsuleIndications :Vitamin D deficiency Take 1 capsule by mouth 1 (One) Time Per Week. 12 capsule 1 02/18/20 25 Active Testosterone Enanthate 75 MG/0.5ML solution auto-injectorIndic ations:Low testosterone in male Inject 75 mg under the skin into the appropriate area as directed 1 (One) Time Per Week. 1.96 mL 02/24/20 25 Active Syringe 25G X 5/8 3 ML miscIndications:Lo w testosterone in male Use 1 each 1 (One) Time Per Week. 12 each 1 02/24/20 25 Active riFAXIMin (Xifaxan) 550 MG tabletIndications: Hepatic encephalopathy Take 1 tablet by mouth Every 12 (Twelve) Hours. 180 tablet 04/25/20 23 025 Discontin ued(*Ther apy completed ) lactulose (CHRONULAC) 10 GM/15ML solution Take 30 mL by mouth 2 (Two) Times a Day. 07/11/19 25 025 Discontin ued(*Ther apy completed ) multivitamin with minerals tablet tablet Take 1 tablet by mouth Daily. 07/13/19 25 025 Discontin ued(*Ther apy completed ) thiamine (VITAMIN B1) 100 MG tablet Take 1 tablet by mouth Daily. 07/15/19 25 025 Discontin ued(*Ther apy completed ) naloxone (NARCAN) 4 MG/0.1ML nasal spray Administer 1 spray into the nostril(s) as directed by provider. 07/24/19 25 Discontin ued(*Ther apy completed ) Bempedoic Acid-Ezetimibe (Nexlizet) 180-10 MG tablet Take 1 tablet by mouth Daily. Discontin ued(*Ther apy completed ) pantoprazole (PROTONIX) 40 MG EC tabletIndications: Secondary esophageal varices without bleeding Take 1 tablet by mouth Daily. 30 tablet 10/21/19 25 Discontin ued(*Ther apy completed ) ciprofloxacin (CIPRO) 500 MG tablet Take 1 tablet by mouth Daily. 09/11/19 Discontin ued(*Ther apy completed ) lactulose (CHRONULAC) 10 GM/15ML solution solution (encephalopathy) Take 30 mL by mouth 3 (Three) Times a Day. 08/20/19 Discontin ued(*Ther apy completed ) midodrine (PROAMATINE) 10 MG tablet Take 1 tablet by mouth 3 (Three) Times a Day. 10/18/19 Discontin ued(*Ther apy completed ) potassium chloride ER (K-TAB) 20 MEQ tablet controlled-release ER tablet Take 2 tablets by mouth Daily. Discontin ued(*Ther apy completed ) torsemide (DEMADEX) 20 MG tablet 10/22/19 25 Discontin ued(*Ther apy completed ) ursodiol (ACTIGALL) 300 MG capsule Take 1 capsule by mouth. 09/10/19 25 Discontin ued(*Ther apy completed ) zinc sulfate (ZINCATE) 220 (50 Zn) MG capsule Take 1 capsule by mouth Daily. 08/21/19 25 Discontin ued(*Ther apy completed ) mycophenolate (CELLCEPT) 250 MG capsule Take 2 capsules by mouth 2 (Two) Times a Day. 11/26/19 25 Discontin ued(*Ther apy completed ) vitamin D (ERGOCALCIFEROL) 1.25 MG (81343 UT) capsule capsule Take 1 capsule by mouth 1 (One) Time Per Week. 10/07/2 025 Discontin ued(Reord er) Active Problems Problem Noted Date Diagnosed Date [...] Encounters Date Type Department Care Team Description 02/23/2025 Prior Authorization [facility] [address] [place] [phone] Enedina Mcguire, MOCK UP BUILDER 02/23/2025 Results Follow-Up [facility] [address] [place] [address] Enedina Mcguire, MOCK UP BUILDER 02/20/2025 Telephone [facility] [address] [place] [address] Enedina Mcguire, MOCK UP BUILDER Results 02/20/2025 Telephone [facility] [address] [facility] [address] [phone] Georgina Rainey MA 02/19/2025 Documentation [facility] [address] [facility] [address] [phone] Tye Song MD 02/17/2025 3:15 PM EDT Office Visit [facility] [address] [place] [address] Enedina Mcguire APRN Encounter for follow-up (Primary Dx); Kidney transplant recipient; Liver transplant recipient; Vitamin D deficiency; Low testosterone in male; History of systemic steroid therapy 02/17/2025 Telephone [facility] [address] [place] [address] Enedina Mcguire APRN 02/17/2025 Travel 02/11/2025 Telephone [facility] [address] [facility] [address] [place] [address] Tye Song MD SONG- INJECTION SCHEDULE 01/08/2025 Telephone [facility] [address] [facility] [address] [place] [address] Vazquez Christie PA-C Appointment 01/01/2025 2:15 PM EDT Office Visit [facility] [address] [facility] [address] [place] [address] Vazquez Christie PA-C Cervical radiculopathy (Primary Dx); Long-term use of high-risk medication; Cervical spondylosis without myelopathy; Cervical pain (neck); Therapeutic drug monitoring; Chronic pain syndrome 01/01/2025 Travel 12/12/2024 Refill [facility] [address] [place] [address] Enedina Mcguire APRN Acquired hypothyroidism; Secondary esophageal varices without bleeding 12/05/2024 Telephone [facility] [address] [place] [address] Vazquez Christie PA-C 12/04/2024 2:55 PM EDT Lab [facility] [place] [address] [facility] [address] [place] [address] Therapeutic drug monitoring 12/04/2024 2:15 PM EDT Office Visit [facility] [address] [facility] [address] [place] [address] Vazquez Christie PA-C Cervical radiculopathy [...] 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 [facility] Utilities Answer Date Recorded In the past 12 months has [employer] gas, oil, or water [employer] threatened to shut off services in your [...] Brief Depression Severity Measure Score 0 10/02/2022 [facility] Stress Questionnaire Answer Date [...] F) 02/17/2025 3:31 PM EDT Respiratory Rate 16 08/05/2024 3:12 PM EDT Oxygen Saturation 99% 02/17/2025 3:31 PM EDT Inhaled Oxygen Concentration - - Weight 108 kg (238 lb 6.4 oz) 02/17/2025 3:31 PM EDT Height 193 cm (6' 4 ) 02/17/2025 3:31 PM EDT Body Mass Index 29.02 02/17/2025 3:31 PM EDT Plan of Treatment Upcoming Encounters Date Type Department Care Team (Late st Contact Info) Description 04/02/2025 2:15 PM EST Office Visit [facility] [address] [address] Vazquez Christie PA-C [address] [facility] [address] [place] [address] 05/18/2025 2:30 PM EST Office Visit [facility] [address] [place] [phone] ShaylaEnedina christine, MOCK UP BUILDER [address] [place] [address] Health Maintenance Due Date Last Done Comments [...] 0-49 Discontinued Medical Devices Implanted Type Area Furnace Combustion Analyst Device Identifier Shelf Expiration Date Model / Serial / Lot Coil Concerto Pgla Hel Detach Sys 10mm 30cm - [id number] Implanted:Qty: 1 on 07/03/2022 by Timmy Brunner MD at [facility] Implant Left: Vein EV3 A [employer] [id number] / / [id number] Description:Coil is in the s hort gastric vein Coil Concerto Nyl [place] Detach Sys 10mm 30cm - [id number] Implanted:Qty: 1 on 07/03/2022 by Timmy Brunner MD at [facility] Implant Left: Vein EV3 A [employer] [id number] / / [id number] Description:Short gastric ve in Coil Concerto Nyl [place] Detach Sys 10mm 30cm - [id number] Implanted:Qty: 1 on 07/03/2022 by Timmy Brunner MD at [facility] Implant Left: Vein EV3 A [employer] [id number] / / [id number] Description:Short gasrtic ve in Coil Concerto Nyl [place] Detach Sys 10mm 30cm - [id number] Implanted:Qty: 1 on 07/03/2022 by Timmy Brunner MD at [facility] Implant Left: Vein EV3 A [employer] [id number] / / [id number] Description:Short gastric ve in Coil Concerto Nyl [place] Detach Sys 8mm 30cm - [id number] Implanted:Qty: 1 on 07/03/2022 by Timmy Brunner MD at [facility] Implant Left: Vein EV3 A [employer] [id number] / / [id number] Description:Short gastric ve in Coil Concerto Nyl [place] Detach Sys 8mm 30cm - [id number] Implanted:Qty: 1 on 07/03/2022 by Timmy Brunner MD at [facility] Implant Left: Vein EV3 A [employer] [id number] / / [id number] Description:Short gastric ve in Sys Del Liq Emb Trufill Nbca 1g Vl - [id number] Implanted:Qty: 1 on 07/03/2022 by Timmy Brunner MD at [facility] Implant Left: Vein [facility] [id number] / / [id number] Description:Short gastric ve in Plug Vasc Anton Emb Ampltz .027 [id number] - [id number] Implanted:Qty: 1 on 07/03/2022 by Timmy Brunner MD at [facility] Implant Left: Vein [employer] [id number] / / [id number] Description:Coronary vein Coil Concerto Nyl [place] Detach Sys 8mm 30cm - [id number] Implanted:Qty: 1 on 07/03/2022 by Timmy Brunner MD at [facility] Implant Left: Vein EV3 A [employer] [id number] / / [id number] Description:CORONARY VEIN Gelatin Emb Embocube 5.02mm 50mg Red - [id number] Implanted:Qty: 1 on 07/03/2022 by Timmy Brunner MD at [facility] Implant Left: Vein [employer] [id number] / / [id number] Description:SHORT GASTRIC VE IN Coil Emb Dona 3.7/Lp .035in 14cm 12mm - [id number] Implanted:Qty: 1 on 07/03/2022 by Timmy Brunner MD at [facility] Implant Left: Vein DAVID [id number] / / [id number] Description:SHORT GASTRIC VE IN Coil Concerto Pgla [place] Detach Sys 12mm 30cm - [id number] Implanted:Qty: 1 on 07/03/2022 by Timmy Brunner MD at [facility] Implant Left: Vein EV3 A [employer] [id number] / / [id number] Description:Short gastric ve in Coil Concerto Nyl [place] Detach Sys 8mm 30cm - [id number] Implanted:Qty: 1 on 07/03/2022 by Timmy Brunner MD at [facility] Implant Left: Vein EV3 A [employer] [id number] / / [id number] Description:SHORT GASTRIC VE IN Coil Concerto Nyl [place] Detach Sys 8mm 30cm - [id number] Implanted:Qty: 1 on 07/03/2022 by Timmy Brunner MD at [facility] Implant Left: Vein EV3 A [employer] [id number] / / [id number] Description:Short gastric ve in Coil Concerto Nyl [place] Detach Sys 8mm 30cm - [id number] Implanted:Qty: 1 on 07/03/2022 by Timmy Brunner MD at [facility] Implant Left: Vein EV3 A [employer] [id number] / / [id number] Description:Short gastric ve in Coil Concerto Pgla Hel Detach Sys 14mm 40cm - [id number] Implanted:Qty: 1 on 07/03/2022 by Timmy Brunner MD at [facility] Implant Left: Vein EV3 A [employer] [id number] / / [id number] Description:Short gastric ve in Coil Concerto Pgla Hel Detach Sys 14mm 40cm - [id number] Implanted:Qty: 1 on 07/03/2022 by Timmy Brunner MD at [facility] Implant Left: Vein EV3 A [employer] [id number] / / [id number] Description:Short gastric ve in Coil Concerto Pgla [place] Detach Sys 14mm 30cm - [id number] Implanted:Qty: 1 on 07/03/2022 by Timmy Brunner MD at [facility] Implant Left: Vein EV3 A [employer] [id number] / / [id number] Description:Short gastric ve in Coil Concerto Pgla [place] Detach Sys 14mm 30cm - [id number] Implanted:Qty: 1 on 07/03/2022 by Timmy Brunner MD at [facility] Implant Left: Vein EV3 A [employer] [id number] / / [id number] Description:Short gastric ve in Coil Concerto Pgla [place] Detach Sys 14mm 30cm - [id number] Implanted:Qty: 1 on 07/03/2022 by Timmy Brunner MD at [facility] Implant Left: Vein EV3 A [employer] [id number] / / [id number] Description:Short gastric ve in Procedures Procedure Name Priority Date/Time Associated Diagnosis Comments SCANNED - LABS 02/23/2025 SCANNED - LABS 12/08/2024 SCANNED - LABS 12/08/2024 SCANNED - LABS 12/08/2024 FENTANYL, URINE Routine 12/04/2024 2:50 PM EDT Therapeutic drug monitoring URINE DRUG SCREEN Routine 12/04/2024 2:5 0 PM EDT Therapeutic drug monitoring SCANNED - LABS 12/02/2024 SCANNED - LABS 12/02/2024 SCANNED - LABS 12/02/2024 SCANNED - LABS 12/02/2024 HEPATITIS PANEL, ACUTE Add-On 07/08/2024 10:33 PM EST LIPID PANEL Routine 10/15/2023 4:16 PM EDT Mixed hyperlipidemia from Last 3 Months or Most Recently Relevant to Health Maintenance Results * LABS SCANNED (02/23/2025) Only the most recent of8 resultswithin the time period is included. Enedina Oscar Shayla MOCK UP BUILDER LAB BLOOD ORDERABLES Fin al Result * (ABNORMAL) Urine Drug Screen - Urine, Clean Catch (12/04/2024 2:50 PM EDT) Pathologist [facility] THC, Screen, Urine Positive(A) Negative 12/04 8:32 [...] particularly when unconfirmed results are used. us [facility] Otilio Quay PA-C URINE ORDERABLES Final R esult Performing Organization Address [facility] Co de Phone Number [facility]
[address] [place] [address], * Fentanyl, Urine - Urine, Clean Catch (12/04/2024 2:50 PM EDT) [facility] Fentanyl, Urine Negative Negative 12/04/2024 9:15 PM EDT [facility] Urine Urine specimen obtained by clean catch procedure / Unknown Collection / Unknown 12/04/2024 2:50 PM EDT 12/04/2024 2:54 PM EDT [facility] - 12/04/2024 9:15 PM [...] unconfirmed results are used. us Vazquez Otilio Quay PA-C URINE ORDERABLES Final R esult Performing Organization Address [facility] Co de Phone Number [facility]
[address] [place] [address], [place] [phone] * (ABNORMAL) Lipid Panel (10/15/2023 4:16 PM EDT) Total Cholesterol 234(H) 0 - 200 mg/dL 10/16/2023 2:33 AM EDT [facility] Triglycerides 203(H) 0 - 150 mg/dL 10/16/2023 2:33 AM EDT [facility] HDL Cholesterol 41 40 - 60 mg/dL 10/16/2023 2:33 AM EDT [facility] LDL Cholesterol 156(H) 0 - 100 mg/dL 10/16/2023 2:33 AM EDT [facility] VLDL Cholesterol 37 5 - 40 mg/dL 10/16/2023 2:33 AM EDT [facility] LDL/HDL Ratio 3.72 10/16/2023 2:33 AM EDT [facility] Blood Venipuncture / Unknown 10/15/2023 4:16 PM EDT 10/15/2023 4:16 PM EDT Narrative [facility] - 10/16/2023 2:33 AM EDT [...] Very High >189 mg/dL us Enedina Mcguire APRN LAB BLOOD ORDERABLES Fin al Result [facility]
[address] [phone], from Last 3 Months or Most Recently [...] Of Support Discussed With: Patient Care Teams Coal Trimmer Relationship Specialty Start Date End Date Enedina Mcguire APRN [address] [place] [address] PCP - General Nurse Practitioner 10/27/24
--- OUTSIDE RECORDS SUMMARY | 2025-02-24 12:58 | XMS_ITS | Encounter Summary ---
[facility] [address] [place] [address] Care Team Providers Care Moving Van Driver Name Role Phone Enedina Mcguire APRN Primary Care Provider + Encounter Details Date Type Department Care Team ([facility] st Contact Info) Description 10/07/2024 Results Follow-Up [facility] [address] [place] [address] Enedina Mcguire APRN [address] [place], [place] [phone] Social History Tobacco Use Types Packs/Day Years [...] Recorded In the past 12 months has [employer], [employer], oil, or water [employer] threatened to shut off services in your [...] Brief Depression Severity Measure Score 0 10/02/2022 [facility] [...] Description 04/02/2025 2:15 PM EST Office Visit [facility] [address] [phone] Vazquez Christie PA-C [address] [facility] [address] [place] [address] 05/18/2025 2:30 PM EST Office Visit [facility] [address] [place] [address] Enedina Mcguire APRN [address] [place], [place] [phone] documented as of this encounter Visit Diagnoses Not on filedocumented in this encounter Additional Health Concerns Assessment Noted Time PHQ-2 Depression Total Score: 1 12/31/19 24 3:25 PM EDT documented as of this encounter Care Teams Moving Van Driver Relationship Specialty Start Date End Date Enedina Mcguire APRN [address] [place] [phone] PCP - General Nurse Practitioner 10/27/24 documented as of this encounter
--- OUTSIDE RECORDS SUMMARY | 2025-02-24 12:58 | XMS_ITS | Encounter Summary ---
[facility] Organization [facility] Address [address] [place] [address] Care Team Providers Care Presser And Shaper Knitted Goods Name Role Phone Enedina Mcguire APRN Primary Care Provider + Encounter Details Date Type Department Care Team ([facility] st Contact Info) Description 02/23/2025 Prior Authorization [facility] [address] [place] [address] Enedina Mcguire APRN [address] [place] [address] [phone] Social History Tobacco Use Types Packs/Day Years Used Date Smoking Tobacco: Former Cigarettes 4 20 Passive Smoke Exposure: Past Smokeless Tobacco: Current Comments:MARIJUANA USE ABOUT 2X PER WEEK - reports no use 08-05-2024 Alcohol Use Standard Drinks/Week Comments Not Currently 0 (1 standard drink = 0.6 oz pure alcohol) 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 [facility] Utilities Answer Date Recorded In the past 12 months has [employer], [employer], oil, or water [employer] threatened to shut off services in your [...] encounter Miscellaneous Notes * Telephone Encounter - Maria Fernanda Evans MA - 02/24/2025 11:14 AM EDT Sent IAT-Auto message to patient. * Telephone Encounter - Maria Fernanda Evans MA - 02/24/2025 7:42 AM EDT PA denied. Per denial letter patient must try and fail formulary alternatives testosterone gel, testosterone solution (natesto) * Telephone Encounter - Maria Fernanda Evans MA - 02/23/2025 3:28 PM EDT PA sent to plan for xyosted documented in this encounter Plan of Treatment Upcoming Encounters Date Type Department Care Team (Late st Contact Info) Description 04/02/2025 2:15 PM EST Office Visit [facility] PAIN [facility]GEMENT [address] [address] Vazquez Christie PA-C [address] [address] 05/18/2025 2:30 PM EST Office Visit [facility] [address] [place] [phone] Enedina Mcguire APRN [address] [place] [address] documented as of this encounter Visit Diagnoses Not on filedocumented in this encounter Additional Health Concerns Assessment Noted Time PHQ-2 Depression Total Score: 1 12/31/19 24 3:25 PM EDT documented as of this encounter Care Teams Presser And Shaper Knitted Goods Relationship Specialty Start Date End Date Enedina Mcguire APRN [address] [place] [address] PCP - General Nurse Practitioner 10/27/24 documented as of this encounter
--- OUTSIDE RECORDS SUMMARY | 2025-02-24 12:58 | XMS_ITS | Encounter Summary ---
Author Organization Address [address] [place] [address] Care Team Providers Care Hand Meat Salter Name Role Phone Enedina Mcguire NP Primary Care Provider [phone] Maureen Pantoja RN Unavailable Unavail able Source [...] release of HIV test results or diagnoses. [id number] Reason for Visit * Reason Comments Results Encounter Details Date Type Department Care Team (Riky st Contact Info) Description 01/09/2025 Telephone [facility] Liver Transplant at [address] [address] Marisela [place] MA Results Social [...] In the past 12 months has e [employer], gas, oil, or water [employer] threatened to shut off services in your [...] results so Txp MA can enter into [employer] and RN Txp Coordinator can review. Patient was asked by Kidney Txp Provider to repeat labs today to check magnesium level. Will await all results. * Marisela [place] MA - 01/09/2025 1:37 PM EDT Pts outpt lab [facility] called with a critical lab [...] as of this encounter Care Teams Hand Meat Salter Relationship Specialty Start Date End Date Enedina Mcguire NP [address] [place] [address] PCP - General Internal Medicine 10/05/24 Maureen Pantoja, RN Txp Post Coordinator Transplant Hepatology 10/28/24 documented as of this encounter
--- OUTSIDE RECORDS SUMMARY | 2025-02-24 12:58 | XMS_ITS | Encounter Summary ---
Author Organization [facility] Address [address] [place] [address] Care Team Providers Care Traffic Division Commanding Officer Name Role Phone Enedina Mcguire NP Primary Care Provider + [phone] Maureen Pantoja RN Unavailable Unavail able Source [...] release of HIV test results or diagnoses. [id number] Reason for Visit * Reason Onset Date Comments Medication Refill 01/21/2025 Encounter Details Date Type Department Care Team (Late st Contact Info) Description 01/21/2025 Refill [facility] Liver Transplant at [address] [address] Harvey Domínguez III, MD [address] [place] [address] Encounter for therapeutic drug monitoring; S/P liver transplant ([facility]); Hypomagnesemia; Kidney transplant recipient; Hypertension, [...] the past 12 months has th e [employer], gas, oil, or water company threatened [...] Mock RN documented as of this encounter Plan of Treatment Not on file documented as of this encounter Visit Diagnoses Diagnosis Encounter for therapeutic drug monitoring S/P liver transplant ([facility]) Hypomagnesemia Disorders of magnesium metabolism [...] as of this encounter Care Teams Traffic Division Commanding Officer Relationship Specialty Start Date End Date Enedina Mcguire NP [address] [place] [address] PCP - General Internal Medicine 10/05/24 Maureen Pantoja, RN Txp Post Coordinator Transplant Hepatology 10/28/24 documented as of this encounter
--- OUTSIDE RECORDS SUMMARY | 2025-02-24 12:58 | XMS_ITS | Encounter Summary ---
Author Organization Healthcare Address [address] [place] [address] Care Team Providers Care Credit Card Clerk Name Role Phone Jony Conde MD Primary Care Provider [phone] Lj Tapia RESISTANCE MACHINE WELDER SETTER Unavailable [phone] Enedina Mcguire APRN Primary Care Provider + Nuria Fall LIFE SCIENCES TEACHER Unavailable Unavaila ble Encounter Details Date Type Department Care Team (Late st Contact Info) Description 07/02/2022 Orders Only External Location [address] [place] [address] Provider, External Social History Tobacco Use Types [...] on filedocumented in this encounter Care Teams Credit Card Clerk Relationship Specialty Start Date End Date Jony Conde MD [address] [facility] [address] [place], [place] [phone] PCP - General 07/18/22 12/03/22 Enedina Mcguire APRN [address] [place] [address] PCP - General 12/04/22 Lj Tapia APRN [address] [place] [address] Referring Physician Gastroenterology 07/18/22 Nuria Fall LPN [facility] TCM Nurse 07/24/24 08/23/24 documented as of this encounter
--- OUTSIDE RECORDS SUMMARY | 2025-02-24 12:58 | XMS_ITS | Encounter Summary ---
Author Organization [facility] Address [address] [place] [address] Care Team Providers Care Pourer Buggy Ladle Name Role Phone Jony Conde MD Primary Care Provider [phone] Lj Tapia REGISTERED MASSAGE THERAPIST Unavailable [phone] Enedina Mcguire REGISTERED MASSAGE THERAPIST Primary Care Provider + Nuria Fall HOUSE ADMIN Unavailable Unavaila ble Encounter Details Date Type Department Care Team (Late st Contact Info) Description 07/04/2022 Orders Only External Location [address] [place] [address] Presley Montes De Oca MD [address] [phone] Social History Tobacco Use Types Packs/Day Years [...] on filedocumented in this encounter Care Teams Pourer Buggy Ladle Relationship Specialty Start Date End Date Jony Conde MD [address] [facility] [address] [place] [address] PCP - General 07/18/22 12/03/22 Enedina Mcguire APRN [address] [place] [address] PCP - General 12/04/22 Lj Tapai APRN [address] [place] [address] Referring Physician Gastroenterology 07/18/22 Nuria Fall LPN [facility] TCM Nurse 07/24/24 08/23/24 documented as of this encounter
--- OUTSIDE RECORDS SUMMARY | 2025-02-24 12:58 | XMS_ITS | Encounter Summary ---
Author Organization Address [address] [place] [address] Care Team Providers Care Communications Department Chairperson Name Role Phone Enedina Mcguire NP Primary Care Provider + [phone] Maureen Pantoja RN Unavailable Unavail able Source [...] release of HIV test results or diagnoses. [id number] Health Encounter Details Date Type Department Care Team (Late st Contact Info) Description 01/05/2025 Chart Note [facility] Liver Transplant at [address] [place] [phone] Marlene Ro MA 01/05 Labs entered from [facility] Social History Tobacco Use Types Packs/Day Years Used Date Smoking Tobacco: Former Cigarettes Smokeless Tobacco: Current Alcohol Use Standard Drinks/Week Comments Yes 0 (1 standard drink = 0.6 oz pure alcohol) History of alcohol abuse, reports no use in 3 week- typically endorses use as 4 glasses of wine a days Utilities Answer Date Recorded In the past 12 months has [employer], gas, oil, or water [employer] threatened to shut off services in your [...] were not included. 01/05 Labs entered from [facility] documented in this encounter Plan [...] Blood (01/05/2025 9:27 AM EDT) Pathologist [facility] BK Virus Quant PCR PL Negative Plasma Result [facility] LAB BLOOD ORDERABLES Denisse l Result * Urine culture (01/05/2025 9:27 AM EDT) Pathologist [facility] Urine Culture, Comprehensive no growth URINE SPECIMEN / Unknown Result [facility] MICROBIOLOGY - GENERAL OR DERABLES Final Result * (ABNORMAL) Magnesium (01/05/2025 9:27 AM EDT) [facility] Magnesium 1.0(A) 1.6 - 2.4 mg/dL Plasma Narrative Resulting Agency Comment Kev Downey Result [facility] LAB BLOOD ORDERABLES Denisse l Result * (ABNORMAL) Renal Function Panel w/o EGFR (01/05/2025 9:27 AM EDT) [facility] Glucose 98 BUN 19 CO2 29(A) 13 - 22 mmol/L Creatinine 1.10 Potassium 4.0 Sodium 140 Chloride 101 Phosphorus 5.4(A) 2.5 - 4.9 mg/dL Calcium 9.7 EGFR 89 mg/dL Albumin 4.8 3.5 - 5.0 g/dL Blood Narrative Resulting Agency Comment Kev Downey Result [facility] LAB BLOOD ORDERABLES Denisse l Result * Creatinine, urine, random (01/05/2025 9:27 AM EDT) Pathologist [facility] Creatinine, Urine 80 Urine Narrative Resulting Agency Comment Kev [facility] Result [facility] URINE ORDERABLES Final Re sult * Urinalysis w/Rfl to Microscopic (01/05/2025 9:27 AM EDT) Pathologist [facility] Glucose, UA Negative Negative Ketones, UA Negative Negative Blood, UA Negative Negative Bilirubin, UA Negative Negative Urobilinogen, UA Normal Normal Protein, UA Negative Negative Nitrite, UA Negative Negative pH, UA 6.0 4.5 - 8.0 Specific [place], UA 1.015 1.005 - 1.030 Clarity, UA Clear Clear Color, UA Yellow Light Yellow, Yellow Urine Narrative Resulting Agency Comment [facility] Result [facility] Provider URINE ORDERABLES Final Re sult * (ABNORMAL) CBC and differential (01/05/2025 9:27 AM EDT) [facility] Hemoglobin 11.9(A) 13.5 - 17.5 g/dL [...] 10^3/mL Blood Narrative Resulting Agency Comment Kev [facility] Result [facility] Provider LAB BLOOD ORDERABLES Denisse l Result * Urine Protein, Tot, Random (w/o Creat) (01/05/2025 9:27 AM EDT) [facility] Total Protein, Ur 21.0 Urine Narrative Resulting Agency Comment [facility] Result [facility] Provider URINE ORDERABLES Final Re sult [...] documented as of this encounter Care Teams Communications Department Chairperson Relationship Specialty Start Date End Date Enedina Mcguire NP [address] [place] [address] PCP - General Internal Medicine 10/05/24 Maureen Pantoja, RN Txp Post Coordinator Transplant Hepatology 10/28/24 documented as of this encounter
--- OUTSIDE RECORDS SUMMARY | 2025-02-24 12:58 | XMS_ITS | Encounter Summary ---
Author Organization [facility] Address [address] [place] [address] Care Team Providers Care Biological Technician Name Role Phone Enedina Mcguire NP Primary Care Provider + [phone] Maureen Pantoja RN Unavailable Unavail able Source [...] release of HIV test results or diagnoses. [id number] Reason for Visit * Reason Comments Results Encounter Details Date Type Department Care Team (Riky st Contact Info) Description 01/08/2025 Telephone [facility] Liver Transplant at [address] [address] Maureen Pantoja, RN Results Social [...] In the past 12 months has e [employer], gas, oil, or water [employer] threatened to shut off services in your [...] as of this encounter Care Teams Biological Technician Relationship Specialty Start Date End Date Enedina Mcguire NP [address] [place] [address] PCP - General Internal Medicine 10/05/24 Maureen Pantoja RN Txp Post Coordinator Transplant Hepatology 10/28/24 documented as of this encounter
--- OUTSIDE RECORDS SUMMARY | 2025-02-24 12:58 | XMS_ITS | Encounter Summary ---
Author Organization [facility] Address [address] [place] [address] Care Team Providers Care Art Specialist Name Role Phone Enedina Mcguire NP Primary Care Provider + [phone] Maureen Pantoja RN Unavailable Unavail able Source [...] release of HIV test results or diagnoses. [id number] Health Encounter Details Date Type Department Care Team (Late st Contact Info) Description 01/09/2025 Chart Note [facility] Liver Transplant at [address] [place] [phone] Marlene Ro MA 01/09 Labs entered from [facility] Social History Tobacco Use Types Packs/Day Years Used Date Smoking Tobacco: Former Cigarettes Smokeless Tobacco: Current Alcohol Use Standard Drinks/Week Comments Yes 0 (1 standard drink = 0.6 oz pure alcohol) History of alcohol abuse, reports no use in 3 week- typically endorses use as 4 glasses of wine a days Utilities Answer Date Recorded In the past 12 months has [employer], gas, oil, or water [employer] threatened to shut off services in your [...] 2:24 PM EDT 01/09 Labs entered from [facility] documented in this encounter Plan [...] Magnesium 1.3(A) 1.6 - 2.4 mg/dL Plasma [facility] Provider MD LAB BLOOD ORDERABLES Denisse [...] 1.8 10^3/mL Blood Narrative Resulting Agency Comment [facility] LAB BLOOD ORDERABLES Denisse l [...] Agency Comment [facility] LAB BLOOD ORDERABLES Denisse l Result * Creatinine, urine, random (01/09/2025 12:23 PM EDT) Creatinine, Urine 66 Urine Narrative Resulting Agency Comment [facility] Result [facility] Provider URINE ORDERABLES Final Re sult * Urinalysis w/Rfl to Microscopic (01/09/2025 12:23 PM EDT) Glucose, UA Negative Negative Ketones, UA Negative Negative Blood, UA Negative Negative Bilirubin, UA Negative Negative Urobilinogen, UA Normal Normal Protein, UA Negative Negative Leukocyte Esterase, UA Negative Negative pH, UA 6.0 4.5 - 8.0 Specific [place], UA 1.020 1.005 - 1.030 Clarity, UA Clear Clear Color, UA Yellow Light Yellow, Yellow Urine Narrative Resulting Agency Comment [facility] Result [facility] Provider URINE ORDERABLES Final Re sult * Urine Protein, Tot, Random (w/o Creat) (01/09/2025 12:23 PM EDT) Total Protein, Ur 15.0 Urine Narrative Resulting Agency Comment [facility] Result [facility] Provider URINE ORDERABLES Final Re sult * Hepatic Function Panel (01/09/2025 12:23 PM EDT) Bilirubin, Direct 0.4 Bilirubin, Indirect 0.6 Alkaline Phosphatase 57 ALT 13 AST 22 Total Bilirubin 1.0 Total Protein 7.3 Plasma Narrative Resulting Agency Comment [facility] Result [facility] Provider LAB BLOOD ORDERABLES Denisse l Result * Urine culture (01/06/2025 12:23 PM EDT) Urine Culture, Comprehensive no growth URINE SPECIMEN / Unknown Result [facility] Provider MICROBIOLOGY - GENERAL OR [...] as of this encounter Care Teams Art Specialist Relationship Specialty Start Date End Date Enedina Mcguire NP [address] [place] [address] PCP - General Internal Medicine 10/05/24 Maureen Pantoja, RN Txp Post Coordinator Transplant Hepatology 10/28/24 documented as of this encounter
--- OUTSIDE RECORDS SUMMARY | 2025-02-24 12:58 | XMS_ITS | Clinical Summary ---
Author Organization Healthcare Address [address] [place] [address] Care Team Providers Care Textile Knitter Name Role Phone Lj Tapia Rohini RICKS Unavailable [phone] Enedina Mcguire APRN Primary Care Provider + [...] Metabolism [address] [facility], [address] [place] [address] Chelsy Villanueva from Last 3 [...] 07/14/2024 How often do you attend [facility] or scientology services? Patient unable to answer 07/14/2024 Do you belong to any clubs o r organizations such as jain groups, unions, fraternal or athletic groups, or [...] Recorded Patient Health Questionnaire-2 Score 2 09/29/2024 [facility] - Occupational Stress Questionnaire Answer Date [...] drink first t deborah in the morning (EYE-COMMUNICATIONS ADVISOR) to steady your nerves or to get [...] 2 - 13+ 2-dose series) 10/11/2010 09/13/2010 [id number] Vaccine ( - 2024- season) 2025 03/17/2021, [...] this topic Medical Devices Implanted Type Area Assisted Sales Representative Device Identifier Shelf Expiration Date Model / Serial / Lot Concerto [place] Coil-07/03/2022 Implanted:06/15 by Timmy Brunner MD (Quantity not on file) Coil Abdomen Description:Multiple Coil Co ncerto Pgla [place] Detach COILS implanted on 07/03/2022 by Timmy Brunner MD at [facility]--info can be found in Care Everywhere for [facility] as of 11/15/23 Dona Coil-07/03/2022 Implanted:06/15 by Timmy Brunner MD (Quantity not on file) Coil Abdomen [employer] Description:Coil Emb Dona 3.7/Implanted: Qty: 1 on 07/03/2022 by Timmy Brunner MD at [facility] Plate Plate N/A: Neck Plug Vasc Anton Emb Amplatzer Implanted:06/15 by Timmy Brunner MD (Quantity not on file) Plug Other Vein / / [id number] Description:Plug Vasc Anton Em b Ampltz .027 [id number] - [id number] Implanted: Qty: 1 on 07/03/2022 by Timmy Brunner MD at [facility] Stent Gastro Panc 5fr 5cm - [id number] Implanted:Qty: 1 on 11/20/2023 by Devang Mcghee, ЮЛИЯ at [facility] Pancreas [employer]-[id number] 08/13/2026 [id number] / / [id number] Procedures Procedure Name Priority Date/Time Associated Diagnosis [...] ORDERA BLES Final Result Performing Organization Address City/[facility]/ZIP Co de Phone Number [facility] [address] [place] [address] * Hepatitis C Antibody (07/14/2024 4:31 PM EST) Hepatitis C Antibody Negative Negative 07/14/2024 5:27 PM EST [facility] Blood Venous blood specimen / Unknown Venipuncture / Unknown 07/14/2024 4:31 PM EST 07/14/2024 4:54 PM EST Laureano Salinas APRN, DNP LAB BLOOD ORDERA BLES Final Result Performing Organization Address City/[facility] Co de Phone Number [facility] [address] [place] [address] from Last 3 Months or Most Recently Relevant to [place] [address] [place] [address] [place] [address] [facility] Advance Directives * Full Code (Latest Code Status on File) Date Activated Date Inactivated Comments 07/11/2024 11:04 PM 07/23/2024 6:27 PM Question Answer Comments Patient has decision-making capacity? Yes * Full Code Date Activated Date Inactivated Comments 11/14/2023 10:15 PM 11/27/2023 9:08 PM Question Answer Comments Patient has decision-making capacity? Yes Care Teams Textile Knitter Relationship Specialty Start Date End Date Enedina Mcguire APRN [address] [place] [address] PCP - General 12/04/22 Lj Tapia APRN [facility] [place] [address] Referring Physician Gastroenterology 07/18/22
--- OUTSIDE RECORDS SUMMARY | 2025-02-24 12:58 | XMS_ITS | Encounter Summary ---
Author Organization Healthcare Address [address] [place] [address] Care Team Providers Care System Dispatcher Name Role Phone Jony Conde MD Primary Care Provider [phone] Lj Tapia COMPUTING SYSTEMS MECHANIC Unavailable [phone] Enedina Mcguire COMPUTING SYSTEMS MECHANIC Primary Care Provider + Nuria Fall LABEL REMOVER Unavailable Unavaila ble Encounter Details Date Type Department Care Team (Late st Contact Info) Description 07/04/2022 Orders Only External Location [address] [place] [address] Presley Montes De Oca MD [address] [id number] Social History Tobacco Use Types Packs/Day Years [...] on filedocumented in this encounter Care Teams System Dispatcher Relationship Specialty Start Date End Date Jony Conde MD [address] [place] [address] [address] [place], [place] [phone] PCP - General 07/18/22 12/03/22 Enedina Mcguire APRN [address] [place] [address] PCP - General 12/04/22 Lj Tapia APRN [address] [place] [address] [phone] Referring Physician Gastroenterology 07/18/22 Nuria Fall LPN [facility] TCM Nurse 07/24/24 08/23/24 documented as of this encounter
--- OUTSIDE RECORDS SUMMARY | 2025-02-24 12:58 | XMS_ITS | Encounter Summary ---
Author Organization [facility] Address [address] [place] [address] Care Team Providers Care Spanish Professor Name Role Phone Enedina Mcguire NP Primary Care Provider + [phone] Maureen Pantoja RN Unavailable Unavail able Source [...] release of HIV test results or diagnoses. [id number] Reason for Visit * Reason Onset Date Comments Medication Refill 01/21/2025 Encounter Details Date Type Department Care Team (Late st Contact Info) Description 01/21/2025 Refill [facility] Liver Transplant at [address] [place] [address] oRse Montelongo MD [facility] Lui Jose [place], [place] [phone] Social History Tobacco Use Types Packs/Day Years Used Date Smoking Tobacco: Former Cigarettes Smokeless Tobacco: Current Alcohol Use Standard Drinks/Week Comments Yes 0 (1 standard drink = 0.6 oz pure alcohol) History of alcohol abuse, reports no use in 3 week- typically endorses use as 4 glasses of wine a days Utilities Answer Date Recorded In the past 12 months has [employer], gas, oil, or water [employer] threatened to shut off services in your [...] documented as of this encounter Care Teams Spanish Professor Relationship Specialty Start Date End Date Enedina Mcguire NP [address] [place] [address] PCP - General Internal Medicine 10/05/24 Maureen Pantoja, ЮЛИЯ Txp Post Coordinator Transplant Hepatology 10/28/24 documented as of this encounter
--- OUTSIDE RECORDS SUMMARY | 2025-02-24 12:58 | XMS_ITS | Encounter Summary ---
Author Organization [facility] Address [address] [place] [id number] Care Team Providers Care Nutritional Assistant Name Role Phone Enedina Mcguire NP Primary Care Provider + [phone] Maureen Pantoja RN Unavailable Unavail able Source [...] release of HIV test results or diagnoses. [id number] Reason for Visit * Reason Comments Critical Lab Results Encounter Details Date Type Department Care Team (Late st Contact Info) Description 01/05/2025 Telephone [facility] Liver Transplant at [address] [place] [phone] Marisela Martinez MA Critical Lab Results [...] In the past 12 months has [employer], gas, oil, or water [employer] threatened to shut off services in your [...] - 01/05/2025 11:15 AM EDT Lizeth from [facility] called to report a critical [...] documented as of this encounter Care Teams Nutritional Assistant Relationship Specialty Start Date End Date Enedina Mcguire NP [address] [place] [id number] PCP - General Internal Medicine 10/05/24 Maureen Pantoja, ЮЛИЯ Txp Post Coordinator Transplant Hepatology 10/28/24 documented as of this encounter
--- OUTSIDE RECORDS SUMMARY | 2025-02-24 12:58 | XMS_ITS | Encounter Summary ---
Author Organization [facility] Address [address] [place] [address] Care Team Providers Care Machine Pie Maker Name Role Phone Enedina Mcguire APRN Primary Care Provider + Encounter Details Date Type Department Care Team ([facility] st Contact Info) Description 10/07/2024 Results Follow-Up [facility] [address] [place] [phone] Enedina Mcguire APRN [address] [place], [place] [id number] Social History Tobacco Use Types Packs/Day Years Used Date Smoking Tobacco: Former Cigarettes 4 20 Passive Smoke Exposure: Past Smokeless Tobacco: Current Comments:MARIJUANA USE ABOUT 2X PER WEEK - reports no use 08-05-2024 Alcohol Use Standard Drinks/Week Comments Not Currently 0 (1 standard drink = 0.6 oz pure alcohol) 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 [facility] Utilities Answer Date Recorded In the past 12 months has [employer], [employer], oil, or water [employer] threatened to shut off services in your [...] 04/02/2025 2:15 PM EST Office Visit [facility] [address] [phone] Vazquez Christie PA-C [address] [facility] [address] [place] [address] 05/18/2025 2:30 PM EST Office Visit [facility] [address] [place] [address] Enedina Mcguire APRN [address] [place], [place] [id number] documented as of this encounter Visit Diagnoses Not on filedocumented in this encounter Additional Health Concerns Assessment Noted Time PHQ-2 Depression Total Score: 1 12/31/19 24 3:25 PM EDT documented as of this encounter Care Teams Machine Pie Maker Relationship Specialty Start Date End Date Enedina Mcguire APRN [address] [place] [id number] PCP - General Nurse Practitioner 10/27/24 documented as of this encounter
--- OUTSIDE RECORDS SUMMARY | 2025-02-24 12:59 | XMS_ITS | Clinical Summary ---
Author Organization [facility] Address [facility] [place] [address] Care Team Providers Care Director Of Trauma Name Role Phone Enedina Mcguire NP Primary Care Provider + [phone] Maureen Pantoja RN Unavailable Unavail able Source [...] therelease of HIV test results or diagnoses. [id number] Allergies Active Allergy Reactions Criticality Noted [...] Encounter for therapeutic drug monitoring,S/P liver transplant ([facility]Hypomagn esemia,Kidney transplant recipient,Hyperten kevin, unspecified type,Gastroesophag eal reflux disease, unspecified whether esophagitis present Take 1 tablet (20 mg total) by mouth 2 times a day. 60 tablet 2 025 Active mycophenolate (CELLCEPT) 250 mg capsuleIndications :Encounter for therapeutic drug monitoring,S/P liver transplant ([facility]),Hypomagn esemia,Kidney transplant recipient,Hyperten kevin, unspecified type,Gastroesophag eal reflux disease, unspecified whether esophagitis present Take 2 capsules (500 mg total) by mouth 2 times a day. 120 capsule 5 025 Active NIFEdipine (PROCARDIA-XL) 30 MG (OSM) 24 hr tabletIndications: Encounter for therapeutic drug monitoring,S/P liver transplant ([facility]),Hypomagn esemia,Kidney transplant recipient,Hyperten kevin, unspecified type,Gastroesophag eal [...] Liver Transplant Rejection. 330 capsule 5 Active naltrexone (DEPADE) 50 mg tablet Take 1 tablet (50 mg total) by mouth daily. 30 tablet 5 025 Active acetaminophen (TYLENOL) 325 MG tablet Take 3 tablets (975 mg total) by mouth every 8 hours as needed 100 tablet 025 03/01 Active methocarbamoL (ROBAXIN) 500 MG tablet Take 2 tablets (1,000 mg total) by mouth 3 times a day. 120 tablet 01/31/20 25 11:36 AM EDT 025 Active predniSONE (DELTASONE) 5 MG tablet Take 2 tablets (10 mg total) by mouth daily. 60 tablet Active cyclobenzaprine (FLEXERIL) 5 MG tablet Take 1 tablet (5 mg total) by mouth 3 times a day. 90 tablet 01/31/20 25 11:36 AM EDT Active FLUoxetine (PROZAC) 20 MG capsule Take 1 capsule (20 mg total) by mouth daily. 30 capsule 1 Active gabapentin (NEURONTIN) 300 MG capsuleIndications :Neuropathic Pain,alcoholism Take 1 capsule (300 mg total) by mouth 3 times a day. Work on decreasing to one capsule daily. Indications: Neuropathic Pain, alcoholism 270 capsule 1 Active magnesium chloride (SLOW MAG) 71.5 mg TbECIndications:hy pomagnesemia Take 2 tablets (143 mg total) by mouth 3 times a day. Indications: hypomagnesemia 180 tablet 2 025 02/12 FLUoxetine (PROZAC) 20 MG capsule Take 1 capsule (20 mg total) by mouth daily. 30 capsule 2 02/09 Discontinued acetaminophen (TYLENOL) 325 MG tabletIndications: Encounter for therapeutic drug monitoring,S/P liver transplant ([facility]),Hypomagn esemia,Kidney transplant recipient,Hyperten kevin, unspecified type,Gastroesophag eal reflux disease, unspecified whether esophagitis present Take 3 tablets (975 mg total) by mouth every 8 hours. 200 tablet 01/30 Discontinued( Stop Taking at Discharge) sulfamethoxazole-t rimethoprim (BACTRIM) 400-80 mg per tabletIndications: Encounter for therapeutic drug monitoring,S/P liver transplant ([facility]),Hypomagn esemia,Kidney transplant recipient,Hyperten kevin, unspecified type,Gastroesophag eal reflux disease, unspecified whether esophagitis present Take 1 tablet by mouth daily. 30 tablet 2 025 01/26 Discontinued methocarbamoL (ROBAXIN) 500 MG tablet Take 2 tablets (1,000 mg total) by mouth 2 times a day as needed. 120 tablet 025 01/30 Discontinued predniSONE (DELTASONE) 5 MG tablet Take 1 tablet (5 mg total) by mouth daily. 90 tablet 025 01/30 Discontinued valGANciclovir (VALCYTE) 450 mg tabletIndications: Encounter for therapeutic drug monitoring,S/P liver transplant ([facility]),Hypomagn esemia,Kidney transplant recipient,Hyperten kevin, unspecified type,Gastroesophag eal reflux disease, unspecified whether esophagitis present Take 2 tablets (900 mg total) by mouth daily. 60 tablet 025 01/26 Discontinued gabapentin (NEURONTIN) 100 MG capsuleIndications :Encounter for therapeutic drug monitoring,S/P liver transplant ([facility]),Hypomagn esemia,Kidney transplant recipient,Hyperten kevin, unspecified type,Gastroesophag eal reflux disease, unspecified whether esophagitis present Take 1 capsule (100 mg total) by mouth 2 times a day. Work on decreasing to one capsule daily. 60 capsule 025 02/12 Discontinued( Refill / Reorder) fidaxomicin (DIFICID) 200 mg Tab tablet Take 1 tablet (200 mg total) by mouth 2 times a day for 8 days. 16 tablet 01/31/20 25 11:36 AM EDT 02/12 Discontinued lidocaine (LIDODERM) 5 % Place 1 patch onto the skin daily. Apply patch for 12 hours and then remove patch and leave off for 12 hours. 30 patch 01/31/20 25 11:36 AM EDT 02/12 Discontinued Active Problems Problem Noted Date Diagnosed [...] SBP, s/p CTX x5d; will cont buttermaker helper ppx with Cipro 500mg daily - [...] Date Type Department Care Team Description 02/23/2025 Chart Note [facility] Liver Transplant at [address] [place] [address] Marlene Ro MA 02/18 Labs entered from [facility] 02/23/2025 Telephone [facility] Liver Transplant at [address] [place] [address] Marlene Ro MA 02/17/2025 Telephone [facility] Liver Transplant at [address] [place] [address] Marlene Ro MA 02/13/2025 Telephone [facility] Liver Transplant at [address] [place] [address] Marisela Martinez MA Results 02/12/2025 10:50 AM EDT Office Visit [facility] Liver Transplant at [address] [place] [address] Chris Orosco MD Liver transplant recipient ([facility]) (Primary Dx); History of systemic steroid therapy; Kidney transplant recipient; Immunosuppressive management encounter following liver transplant ([facility]); Encounter for monitoring tacrolimus therapy; Vitamin D deficiency; Encounter for therapeutic drug monitoring; S/P liver transplant ([facility]); Hypomagnesemia; Hypertension, unspecified type; Gastroesophageal reflux disease, unspecified whether esophagitis present; Alcohol use disorder; Immunosuppression ([facility]); Viral disease exposure 02/12/2025 Social Work [facility] Liver Transplant at [address] [place] [phone] Kaylin Willard MSW 02/12/2025 Telephone [facility] Liver Transplant at [address] [place] [phone] Maureen Pantoja, ЮЛИЯ Results 02/10/2025 Chart Note [facility] Liver Transplant at [address] [place] [phone] Marlene Ro MA 02/10 Labs entered from [facility] 02/09/2025 Chart Note [facility] Liver Transplant at [address] [place] [phone] Marisela Martinez MA 02/09/2025 Telephone [facility] Liver Transplant at [address] [place] [phone] Marisela Martinez MA 02/08/2025 Refill [facility] Liver Transplant at [address] [place] [phone] Harvey Domínguez III, MD 02/04/2025 Telephone [facility] Liver Transplant at [address] [place] [phone] Marlene Ro MA 02/03/2025 Telephone [facility] Liver Transplant at [address] [place] [address] [place] [phone] 58 Mitzy Gill MA Results 02/03/2025 Telephone [facility] Liver Transplant at [address] [place] [address] [place] [phone] 31 Marlene Ro MA 02/03/2025 Chart Note [facility] Transplant at [address] [facility] [address] [place] [address] Marlene Ro MA 02/03 Labs entered from [facility] 01/27/2025 6:28 PM EDT - 01/30/2025 2:25 PM EDT Hospital Encounter [facility] [address] [place] [phone] Sunny Wei MD Haugen, Christine, MD Diarrhea of presumed infectious origin (Primary Dx); Immunosuppression ([facility]) Discharge Disposition: Home or Self Care WITHOUT Home Care Services 01/27/2025 Travel 01/27/2025 Telephone [facility] Liver Transplant at [address] [address] Marlene Ro MA 01/26/2025 Telephone [facility] Liver Transplant at [address] [address] Maureen Pantoja, import/export analyst Management 01/23/2025 Telephone [facility] Liver Transplant at [address] [address] Maureen Pantoja, RN Results 01/21/2025 Refill [facility] Liver Transplant at [address] [place] [address] Rose Montelongo MD 01/21/2025 Refill [facility] Liver Transplant at [address] [place] [address] Lydia Sanchez MD Encounter for therapeutic drug monitoring; S/P liver transplant ([facility]); Hypomagnesemia; Kidney transplant recipient; Hypertension, unspecified type; Gastroesophageal reflux disease, unspecified whether esophagitis present 01/21/2025 Refill [facility] Liver Transplant at [address] [place] [address] Harvey Domínguez III, MD Encounter for therapeutic drug monitoring; S/P liver transplant ([facility]); Hypomagnesemia; Kidney transplant recipient; Hypertension, unspecified type; Gastroesophageal reflux disease, unspecified whether esophagitis present 01/20/2025 Chart Note [facility] Liver Transplant at [address] [place] [phone] Marlene Ro MA 01/20 Labs entered from [facility] 01/19/2025 Telephone [facility] Liver Transplant at [address] [place] [address] Gladis Chisholm MA Critical Lab Results 01/17/2025 Refill [facility] Liver Transplant at [address] [place] [address] Harvey Domínguez III, MD Encounter for therapeutic drug monitoring; S/P liver transplant ([facility]); Hypomagnesemia; Kidney transplant recipient; Hypertension, unspecified type; Gastroesophageal reflux disease, unspecified whether esophagitis present 01/16/2025 Telephone [facility] Liver Transplant at [address] [place] [phone] Maureen Pantoja, RN Results 01/15/2025 Chart Note [facility] Liver Transplant at [address] [place] [address] Marlene Ro MA 01/14 Labs entered from [facility] 01/15/2025 Telephone [facility] Liver Transplant at [address] [place] [address] Marlene Ro MA 01/15/2025 Telephone [facility] Liver Transplant at [address] [place] [phone] Kaylin Willard MSW 01/14/2025 Telephone [facility] Liver Transplant at [address] [place] [phone] Marlene Ro MA 01/09/2025 Chart Note [facility] Liver Transplant at [address] [place] [phone] Marlene Ro MA 01/09 Labs entered from [facility] 01/09/2025 Telephone [facility] Liver Transplant at [address] [place] [phone] Marisela Martinez MA Results 01/08/2025 Telephone [facility] Liver Transplant at [address] [place] [phone] Maureen Pantoja, ЮЛИЯ Results 01/06/2025 9:30 AM EDT Office Visit [facility] Liver Transplant at [address] [place] [phone] Leisa Juarez MD Kidney transplant recipient (Primary Dx); Hypomagnesemia; Hyperphosphatemia; Immunosuppression (CMS-HCC); Viral disease exposure; Hypertension, unspecified type 01/06/2025 8:20 AM EDT Office Visit [facility] Liver Transplant at [address] [place] [address] Cosmo Pacheco MD Paci, Philippe, MD S/P liver transplant (CMS-HCC) (Primary Dx); Immunosuppression ([facility]); Kidney transplant recipient; Alcohol use disorder 01/06/2025 Social Work [facility] Liver Transplant at [address] [place] [phone] Kaylin Willard, NUBIA 01/05/2025 Chart Note [facility] Liver Transplant at [address] [place] [phone] Marlene Ro MA 01/05 Labs entered from [facility] 01/05/2025 Telephone [facility] Liver Transplant at [address] [place] [address] Marisela Martinez MA Critical Lab Results 01/05/2025 Telephone [facility] Liver Transplant at [address] [place] [address] Maureen Pantoja, RN Results 12/31/2024 Chart Note [facility] Liver Transplant at [address] [place] [address] Marlene Ro MA 12/31 Labs entered from [facility] 12/29/2024 Telephone [facility] Liver Transplant at [address] [place] [address] Maureen Pantoja, RN Results 12/23/2024 Chart Note [facility] Liver Transplant at [address] [place] [address] Maureen Pantoja, spinner iron results from 12/23/24 entered from [facility]. 12/22/2024 Telephone [facility] Liver Transplant at [address] [place] [address] Maureen Pantoja, RN Results; Medication Dose Change 12/21/2024 Refill [facility] Liver Transplant at [address] [place] [address] Lydia Sanchez MD Encounter for therapeutic drug monitoring; S/P liver transplant ([facility]); Hypomagnesemia; Kidney transplant recipient; Hypertension, unspecified type; Gastroesophageal reflux disease, unspecified whether esophagitis present 12/18/2024 2:00 PM EDT Office Visit [facility] Psychiatry Transplant at [address] [address] Lizeth Warren PsyD Alcohol use disorder (Primary Dx); PTSD (post-traumatic stress disorder) 12/18/2024 Refill [facility] Liver Transplant at [address] [address] Maureen Pantoja, RN Encounter for therapeutic drug monitoring; S/P liver transplant ([facility]); Hypomagnesemia; Kidney transplant recipient; Hypertension, unspecified type; Gastroesophageal reflux disease, unspecified whether esophagitis present 12/17/2024 Chart Note [facility] Liver Transplant at [address] [address] Marlene Ro MA 12/16 Labs entered [facility] 12/12/2024 Telephone [facility] Liver Transplant at [address] [address] Maureen Pantoja, RN Results 12/09/2024 11:45 AM EDT Office Visit [facility] Psychiatry Transplant at [address] [address] Rebekah Linares LICDC Alcohol use disorder (Primary Dx) 12/09/2024 10:20 AM EDT Office Visit [facility] Liver Transplant at [address] [place] [address] Harvey Domínguez III, MD Encounter for therapeutic drug monitoring (Primary Dx); S/P liver transplant ([facility]); Hypomagnesemia; Kidney transplant recipient; Hypertension, unspecified type; Gastroesophageal reflux disease, unspecified whether esophagitis present 12/09/2024 9:50 AM EDT Office Visit [facility] Liver Transplant at [address] [place] [address] Leisa Juarez MD Kidney transplant recipient (Primary Dx); Immunosuppressive management encounter following liver transplant (CMS-HCC); Hypomagnesemia; S/P liver transplant (CMS-HCC); Hypertension, unspecified type; Hyperparathyroidism ([facility]) 12/09/2024 Social Work [facility] Liver Transplant at [address] [place] [address] Kaylin Willard MSW 12/09/2024 Orders Only [facility] Liver Transplant at [address] [address] Maureen Pantoja, ЮЛИЯ 12/09/2024 Orders Only [facility] Liver Transplant at [address] [address] Maureen Pantoja, ЮЛИЯ Kidney transplant recipient (Primary Dx); Liver transplant recipient (CMS-HCC); Viral disease exposure; Immunosuppression ([facility]) 12/09/2024 Telephone [facility] Liver Transplant at [address] [address] Mitzy Gill MA 12/09/2024 Chart Note [facility] Liver Transplant at [address] [address] Marlene Ro MA 12/04/2024 Telephone [facility] Liver Transplant at [address] [address] Maureen Pantoja, ЮЛИЯ Results 12/04/2024 Chart Note [facility] Liver Transplant at [address] [place] [address] Marlene Ro MA FK Pending-12/0412/04/2024 Telephone [facility] Liver Transplant at [address] [phone] Madan Willardenzie, FOURDRINIER MACHINE OPERATOR 12/04/2024 Telephone [facility] Liver Transplant at [address] [place] [address] Marlene Ro MA 12/03/2024 Chart Note [facility] Liver Transplant at [address] [place] [phone] Marlene Ro MA 12/02/2024 Telephone [facility] Liver Transplant at [address] [phone] Mitzy Gill MA 12/01/2024 Telephone [facility] Liver Transplant at [address] [place] [phone] Gladis Chisholm MA 11/27/2024 Telephone [facility] Liver Transplant at [address] [place] [address] Maureen Pantoja, RN Results 11/27/2024 Chart Note [facility] Liver Transplant at [address] [place] [address] Marlene Ro MA FK Pending 11/27 Labs 11/26/2024 Telephone [facility] Liver Transplant at [address] [place] [address] Maureen Pantoja, RN Results 11/25/2024 10:50 AM EDT Office Visit [facility] Liver Transplant at [address] [place] [address] Leisa Juarez MD Kaur, Taranpreet NADIYA (acute kidney injury) ([facility]) (Primary Dx); Kidney replaced by transplant; Metabolic acidosis; Hypervolemia associated with renal insufficiency 11/25/2024 10:20 AM EDT Office Visit [facility] Liver Transplant at [facility] [address] [facility] [address] [place] [phone] Lydia Sanchez MD Encounter for therapeutic drug monitoring (Primary Dx); S/P liver transplant ([facility]); Hypomagnesemia; Kidney transplant recipient; Hypertension, unspecified type; Gastroesophageal reflux disease, unspecified whether esophagitis present; Abdominal pain, unspecified abdominal location 11/25/2024 9:00 AM EDT Procedure visit [facility] Urology at [facility] [address] [facility] [address] [place] [phone] Julieta Rogers PA Retained ureteral stent of transplanted kidney ([facility]) (Primary Dx) 11/25/2024 Social Work [facility] Liver Transplant at [address] [facility] [address] [place] [phone] Kaylin Willard MSW 11/24/2024 Orders Only [facility] Liver Transplant at [address] [place] [phone] Maureen Pantoja RN from Last 3 Months Social History [...] Recorded In the past 12 months has [employer], [employer], oil, or water [employer] threatened to shut off services in [...] living in a chcf (including now)? No 01/28/2025 Yearly Questionnaire Answer [...] Mass Index 28.85 02/12/2025 10:56 AM EDT Plan of Treatment Health Maintenance [...] 10/25/2024, 10/05/2024, Additional history exists Renal Function/GFR 02/18/2026 02/18/2025, 0 02/10/2025, 02/03/2025, Additional history exists Immunization: DTaP/Tdap/Td ( 3 - Td or Tdap) 06/03/2028 06/03/2018, 09/13/2010 Hepatitis C Screening (MyChart) Completed 10/25/2024, 10/07/2024, 10/06/2024, Additional history exists HIV Screening Completed 11/25/2024, 10/12, 10/07/2024 Procedures Procedure Name Priority Date/Time Associated Diagnosis Comments MAGNESIUM Routine 02/18/2025 10:34 AM EDT RENAL FUNCTION PANEL W/O EGFR Routine 02/18/2025 10:34 AM EDT TACROLIMUS LEVEL Routine 02/18/2025 10:3 4 AM EDT CREATININE, URINE, RANDOM Routine 2024 10:34 AM EDT URINALYSIS W/RFL TO MICROSCOPIC Routine 02/18/2025 10:34 AM EDT CBC AND DIFFERENTIAL Routine 02/18/2025 10:34 AM EDT URINE PROTEIN, TOTAL, RANDOM (W/O CREATININE) Routine 02/18/2025 10:34 AM EDT HEPATIC FUNCTION PANEL Routine 10:34 AM EDT PHATIDYLETHANOL (PETH) Routine 9:33 AM EDT BK VIRUS QUANTITATIVE BY PCR, BLOOD Routine 02/10/2025 9:33 AM EDT TACROLIMUS LEVEL Routine 02/10/2025 9:33 AM EDT CYTOMEGALOVIRUS DNA, QUANT, RT PCR Routine 02/10/2025 9:33 AM EDT MAGNESIUM Routine 02/10/2025 9:33 AM EDT RENAL FUNCTION PANEL W/O EGFR Routine 02/10/2025 9:33 AM EDT CREATININE, URINE, RANDOM Routine 2024 9:33 AM EDT URINALYSIS W/RFL TO MICROSCOPIC Routine 02/10/2025 9:33 AM EDT CBC AND DIFFERENTIAL Routine 02/10/2025 9:33 AM EDT URINE PROTEIN, TOTAL, RANDOM (W/O CREATININE) Routine 02/10/2025 9:33 AM EDT HEPATIC FUNCTION PANEL Routine 9:33 AM EDT CLOSTRIDIUM DIFFICILE DNA AMPLIFICATION Routine 02/03/2025 11:04 AM EDT PHATIDYLETHANOL (PETH) Routine 9:39 AM EDT TACROLIMUS LEVEL Routine [...] 7:14 AM EDT TACROLIMUS LEVEL Timed 01/28/2025 7:1 4 AM EDT RENAL FUNCTION PANEL W/EGFR STAT 01/28/2025 7:14 AM EDT HEPATIC FUNCTION PANEL STAT 7:14 AM EDT MAGNESIUM STAT 01/28/2025 7:14 AM EDT CBC STAT 01/28/2025 7:[address] HEAD WO CONTRAST STAT 01/28/2025 1 2:35 AM EDT ENTERIC PATHOGEN PANEL Routine 9:30 PM EDT UPPER RESPIRATORY VIRAL/BACTERIAL PANEL-FLAT KNITTER ONLY Routine 01/27/2025 9:30 PM EDT LACTIC [...] S Routine 01/27/2025 8:20 PM EDT FUNGITELL [id number] Routine 01/28/20 8:20 PM EDT KATIE SCHAFER [...] with ascites, unspecified hepatic cirrhosis type (CMS-HCC) HEPATITIS C ANTIBODY STAT 10/25/2024 10:17 PM EDT TSH Routine 10/07/2024 6:37 PM EDT from Last 3 Months or Most Recently Relevant to Health Maintenance Results * Urine Protein, Tot, Random (w/o Creat) (02/18/2025 10:34 AM EDT) Only the most recent of10 resultswithin the time period is included. Total Protein, Ur 22.0 Urine Narrative Resulting Agency Comment [facility] Result [facility] URINE ORDERABLES Final Re sult * Hepatic Function Panel (02/18/2025 10:34 AM EDT) Only the most recent of19 resultswithin the time period is included. Bilirubin, Direct 0.0 Bilirubin, Indirect 0.5 Alkaline Phosphatase 85 ALT 19 AST 24 Total Bilirubin 0.5 Total Protein 7.1 Plasma Narrative Resulting Agency Comment [facility] Result [facility] LAB BLOOD ORDERABLES Denisse l Result * Tacrolimus level (02/18/2025 10:34 AM EDT) Only the most recent of17 resultswithin the time period is included. Tacrolimus Lvl 10.7 6 - 15 ng/mL Whole Blood Narrative Resulting Agency Comment [facility] Result [facility] Provider LAB BLOOD ORDERABLES Denisse l Result * Creatinine, urine, random (02/18/2025 10:34 AM EDT) Only the most recent of10 resultswithin the time period is included. Creatinine, Urine 54 Urine Narrative Resulting Agency Comment [facility] Result [facility] Provider URINE ORDERABLES Final Re sult * Urinalysis w/Rfl to Microscopic (02/18/2025 10:34 AM EDT) Only the most recent of10 resultswithin the time period is included. Glucose, UA Negative Negative Ketones, UA Negative Negative Blood, UA Negative Negative Bilirubin, UA Negative Negative Urobilinogen, UA Normal Normal Protein, UA Negative Negative pH, UA 5.5 4.5 - 8.0 Specific [place], UA 1.015 1.005 - 1.030 Clarity, UA Clear Clear Color, UA Yellow Light Yellow, Yellow Urine Narrative Resulting Agency Comment [facility] us Historical Provider URINE ORDERABLES Final Re sult * (ABNORMAL) CBC and differential (02/18/2025 10:34 AM EDT) Only the most recent of15 resultswithin the time period is included. Hemoglobin 12.9(A) 13.5 - 17.5 g/dL Hematocrit 37.5(A) 41 - 53 % RDW 13.5 11.5 - 14.5 % Lymphocytes Absolute 1.6 / L Monocytes Absolute 0.4 / L Eosinophils Absolute 0.1 / L Basophils Absolute 0.1 / L Neutrophils Relative 54.4 46 - 78 % Lymphocytes Relative 32.0 18 - 52 % Monocytes Relative 8.7 3 - 10 % Eosinophils Relative 2.3 0 - 6 % Basophils Relative 1.0 0 - 3 % Neutrophils Absolute 2.6 / L MCH 32.4 26.0 - 34.0 pg MCHC 34.4 30 - 37 g/dL MCV 94.2 82.0 - 108.0 fL Platelets 115 K/ L RBC 3.98(A) 4.50 - 5.90 10^6/ L WBC 4.9 10^3/mL Blood Narrative Resulting Agency Comment [facility] Historical Provider LAB BLOOD ORDERABLES Denisse l Result * (ABNORMAL) Magnesium (02/18/2025 10:34 AM EDT) Only the most recent of16 resultswithin the time period is included. Pathologist [facility] Magnesium 1.4(A) 1.6 - 2.4 mg/dL Plasma Narrative Resulting Agency Comment [facility] Result [facility] MD LAB BLOOD ORDERABLES Denisse l Result * (ABNORMAL) Renal Function Panel w/o EGFR (02/18/2025 10:34 AM EDT) Only the most recent of14 resultswithin the time period is included. Glucose 84 BUN 24 CO2 31(A) 13 - 22 mmol/L Creatinine 1.10 Potassium 4.3 Sodium 140 Chloride 99 Phosphorus 4.9 2.5 - 4.9 mg/dL Calcium 9.1 EGFR 74 mg/dL Albumin 4.4 3.5 - 5.0 g/dL Blood Narrative Resulting Agency Comment [facility] Result [facility] MD LAB BLOOD ORDERABLES Denisse l Result * Phatidylethanol (PEth) (02/10/2025 9:33 AM EDT) Only the most recent of3 resultswithin the time period is included. Phosphatidylethanol (PEth) Positive 288 Whole Blood Result [facility] MD LAB BLOOD ORDERABLES Denisse l Result * Cytomegalovirus DNA, Quant, RT PCR (02/10/2025 9:33 AM EDT) Only the most recent of3 resultswithin the time period is included. CMV Quant DNA PCR (Plasma) Negative Plasma Result [facility] Provider MD LAB BLOOD ORDERABLES Denisse l Result * BK Virus Quantitative by PCR, Blood (02/10/2025 9:33 AM EDT) Only the most recent of4 resultswithin the time period is included. BK Virus Quant PCR PL Negative Plasma Result [facility] MD LAB BLOOD ORDERABLES Denisse l Result * Clostridium difficile DNA Amplification (02/03/2025 11:04 AM EDT) Only the most recent of2 resultswithin the time period is included. Clost. Diff DNA Amp. Positive Norovirus Detected FECES / Unknown Historical Provider MD BODY FLUIDS AND STOOLS OR DERABLES Edited Result - Final * (ABNORMAL) Differential (01/30/2025 7:41 AM EDT) Only the most recent of3 resultswithin the time period is included. Pathologist [facility] Neutrophils Relative 39.1(L) 40.0 - 80.0 % 01/30/2025 8:09 AM EDT [facility] Lymphocytes Relative 43.8 15.0 - 45.0 % 01/30/2025 8:09 AM EDT [facility] Monocytes Relative 14.2(H) 0.0 - 12.0 % 01/30/2025 8:09 AM EDT [facility] Eosinophils Relative 2.2 0.0 - 8.0 % 01/30/2025 8:09 AM EDT [facility] Basophils Relative 0.7 0.0 - 1.0 % 01/30/2025 8:09 AM EDT [facility] nRBC 0 0 - 0 /100 WBC 01/30/2025 8:09 AM EDT [facility] Neutrophils Absolute 782(L) 1,520 - 8,640 /uL 01/30/2025 8:09 AM EDT [facility] Lymphocytes Absolute 876 570 - 4,860 /uL 01/30/2025 8:09 AM EDT [facility] Monocytes Absolute 284 0 - 1,296 /uL 01/30/2025 8:09 AM EDT [facility] Eosinophils Absolute 44 0 - 864 /uL 01/30/2025 8:09 AM EDT [facility] Basophils Absolute 14 0 - 108 /uL 01/30/2025 8:09 AM EDT [facility] Whole Blood 01/30/2025 7:41 AM EDT 01/30/2025 8:01 AM EDT Feliciano Gomez [facility] LAB BLOOD ORDERABLES Final Resu lt [facility] [address] [facility] [place] [address], [facility] * (ABNORMAL) Renal Function Panel w/EGFR (01/30/2025 5:51 AM EDT) Only the most recent of3 resultswithin the time period is included. Sodium 139 133 - 146 mmol/L 01/30/2025 7:06 AM EDT [facility] Potassium 3.5 3.5 - 5.3 mmol/L 01/30/2025 7:06 AM EDT [facility] Chloride 105 98 - 110 mmol/L 01/30/2025 7:06 AM EDT [facility] CO2 26 21 - 33 mmol/L 01/30/2025 7:06 AM EDT [facility] Anion Gap 8 3 - 16 mmol/L 01/30/2025 7:06 AM EDT [facility] BUN 29(H) 7 - 25 mg/dL 01/30/2025 7:06 AM EDT [facility] Creatinine 1.14 0.60 - 1.30 mg/dL 01/30/2025 7:06 AM EDT [facility] Glucose 114(H) 70 - 100 mg/dL 01/30/2025 7:06 AM EDT [facility] Calcium 8.7 8.6 - 10.3 mg/dL 01/30/2025 7:06 AM EDT [facility] Phosphorus 5.1(H) 2.1 - 4.7 mg/dL 01/30/2025 7:06 AM EDT [facility] Albumin 4.1 3.5 - 5.7 g/dL 01/30/2025 7:06 AM EDT [facility] Osmolality, Calculated 295 278 - 305 mOsm/kg 01/30/2025 7:06 AM EDT [facility] EGFR 83 01/30/2025 7:06 AM EDT [facility] Comment:As of 2021, the [...] Hill MD LAB BLOOD ORDERABLES Final Result [facility] [address] * (ABNORMAL) CBC (01/30/2025 5:51 AM EDT) Only the most recent of5 resultswithin the time period is included. WBC 2.1(L) 3.8 - 10.8 10E3/uL 01/30/2025 6:41 AM EDT [facility] RBC 3.41(L) 4.20 - 5.80 10E6/uL 01/30/2025 6:41 AM EDT [facility] Hemoglobin 11.2(L) 13.2 - 17.1 g/dL 01/30/2025 6:41 AM EDT [facility] Hematocrit 31.9(L) 38.5 - 50.0 % 01/30/2025 6:41 AM EDT [facility] MCV 93.7 80.0 - 100.0 fL 01/30/2025 6:41 AM EDT [facility] MCH 32.9 27.0 - 33.0 pg 01/30/2025 6:41 AM EDT [facility] MCHC 35.1 32.0 - 36.0 g/dL 01/30/2025 6:41 AM EDT [facility] RDW 14.8 11.0 - 15.0 % 01/30/2025 6:41 AM EDT [facility] Platelets 95(L) 140 - 400 10E3/uL 01/30/2025 6:41 AM EDT [facility] MPV 6.4(L) 7.5 - 11.5 fL 01/30/2025 6:41 AM EDT [facility] Whole Blood 01/30/2025 5:51 AM EDT 01/30/2025 6:33 AM EDT Carlton Hill MD LAB BLOOD ORDERABLES Final Result Performing Organization Address City/State/[facility] Co de Phone Number [facility] [address] [place] [address], [facility] * CT Neck With IV contrast (01/29/2025 [...] cavity, parapharyngeal space, and retropharyngeal space. Normal neuro intensivist physician space, infratemporal fossa, and buccal space. Infrahyoid [...] CT images of the neck were obtained [id number] mL of IOHEXOL 350 MG IODINE/ML INTRAVENOUS SOLUTION administeredintravenously . Sagittal and coronal 2D multiplanar reconstructions wereperformed at the scanner. COMPARISON: None available FINDINGS: Adequate diagnostic quality. Nasopharynx: Symmetric with no mass. Normal torus tubarius, fossa ofRosenmuller, and adenoid tonsillar tissue. Suprahyoid neck: Normal oropharynx, oral cavity, parapharyngeal space, andretropharyngeal space. Normal neuro intensivist physician space, infratemporal fossa, andbuccal space. Infrahyoid neck: [...] at 01/29/2025 2:41 PM EDT Feliciano Gomez [facility] CT ORDERABLES Final Result * Sed Rate (01/29/2025 5:55 AM EDT) Pathologist [facility] Sed Rate 2 0 - 15 mm/hr 01/29/2025 7:03 AM EDT [facility] Whole Blood 01/29/2025 5:55 AM EDT 01/29/2025 6:41 AM EDT Feliciano Gomez [facility] LAB BLOOD ORDERABLES Final Resu lt Performing Organization Address City/[facility] Co de Phone Number [facility] [address] * C-Reactive Protein (01/29/2025 5:55 AM EDT) Pathologist [facility] CRP 4.1 1.0 - 10.0 mg/L 01/29/2025 7:13 AM EDT [facility] Plasma 01/29/2025 5:55 AM EDT 01/29/2025 6:41 AM EDT Feliciano Gomez [facility] LAB BLOOD ORDERABLES Final Resu lt Performing Organization Address [facility] de Phone Number [facility] [address] [facility]. [address] * Giardia Cryptosporidium Antigens (Feces) (01/28/2025 9:27 PM EDT) [facility] [address] Cryptosporidium Ag Negative Negative 2024 8:03 AM EDT [facility] Giardia Ag Negative Negative 01/29/2025 8:03 AM EDT [facility] Comment: Detection of Giardia and Cryptosporidium antigen is more sensitive and specific than microscopy. Because antigens are shed continuously, repeat testing is rarely warranted. Feces 01/28/2025 9:27 PM EDT 01/28/2025 10:07 PM EDT Comment:F Ruby Chiang MD MICROBIOLOGY - GENERAL ORDERAB LES Final Result Performing Organization Address City/[facility]/ZIP Co de Phone Number [facility] [address] * Ova and Parasite Comprehensive w/Giardia (Feces) (01/28/2025 9:27 PM EDT) Pathologist [facility] O & P Method: Concentration and Trichrome Stain [facility] Results No Amoeba, Ova, Or Parasites Seen. -- O and P examination of additional specimens is recommended only for symptomatic patients, immunosuppressed patients or those with an appropriate travel history. [facility] Feces FECES / Unknown 01/28/2025 9 :27 PM EDT 01/28/2025 10:07 PM EDT Comment:F Ruyb Chiang MD MICROBIOLOGY - GENERAL ORDERAB LES Final Result [facility] [address] [facility]. [address] * Clostridium Difficile Toxin A/B Antigen (01/28/2025 1:21 PM EDT) Pathologist [facility] CDIFF Tox AGN Negative Negative 01/28/2025 10:35 PM EDT [facility] Comment:C. difficile nucleic acid testing [...] ORDERABL ES Final Result Performing Organization Address City/[facility]/ZIP Co de Phone Number [facility] [address] [facility] * Phosphatidylethanol Confirmation, B (01/28/2025 7:14 AM EDT) Only the most recent of3 resultswithin the time period is included. Pathologist [facility] PETH 16:0/18.1 (POPETH) 394 Cutoff: 10 ng/mL 01/30/2025 9:58 AM EDT [facility] Comment: Phosphatidylethanol [...] its performance characteristics determined by [facility] in a manner consistent with CLIA requirements. This test has not been cleared or approved by the U.S. Food and Drug Administration. Test Performed by: [place] [address] Top Polisher: Kathy Ortiz Ph.D.; CLIA# [id number] Whole Blood 01/28/2025 7:14 AM EDT 01/30/2025 9:58 AM EDT us Carlton Hill MD LAB BLOOD ORDERABLES Final Result [facility] [address] [place], [place] [id number] [place] [address] * CT Head WO contrast (01/28/2025 12:35 [...] Detected Not Detected 01/28/2025 3:11 AM EDT [facility] Salmonella species Not Detected Not Detected 01/28/2025 3:11 AM EDT [facility] Shigella species Not Detected Not Detected 01/28/2025 3:11 AM EDT [facility] Vibrio Group (Vibrio cholerae, Vibrio parahaemolyticus) Not Detected Not Detected 01/28/2025 3:11 AM EDT [facility] Yersinia enterocolitica Not Detected Not Detected 01/28/2025 3:11 AM EDT [facility] Shiga toxin 1 Not Detected Not Detected 01/28/2025 3:11 AM EDT [facility] Shiga toxin 2 Not Detected Not Detected 01/28/2025 3:11 AM EDT [facility] Norovirus Not Detected Not Detected 01/28/2025 3:11 AM EDT [facility] Rotavirus Not Detected Not Detected 01/28/2025 3:11 AM EDT [facility] Comment: The Enteric Pathogen [...] S Final Result [facility] [address] [place], [place] [address] * Respiratory viral panel (01/27/2025 9:30 PM EDT) [facility] [address] Adenovirus Not Detected Not Detected 01/28/2025 12:20 AM EDT [facility] Coronavirus (229E,HKU1,NL63,OC 43) Not Detected Not Detected 01/28/2025 12:20 AM EDT [facility] SARS-CoV-2 Not Detected Not Detected 01/28/2025 12:20 AM EDT [facility] Human Metapneumovirus Not Detected Not Detected 01/28/2025 12:20 AM EDT [facility] Human Rhinovirus/Enterov irus Not Detected Not Detected 01/28/2025 12:20 AM EDT [facility] Influenza A Not Detected Not Detected 01/28/2025 12:20 AM EDT [facility] Influenza A H1 Not Detected Not Detected 01/28/2025 12:20 AM EDT [facility] Influenza A/H1-2009 Not Detected Not Detected 01/28/2025 12:20 AM EDT [facility] Influenza A H3 Not Detected Not Detected 01/28/2025 12:20 AM EDT [facility] Influenza B Not Detected Not Detected 01/28/2025 12:20 AM EDT [facility] Parainfluenza 1 Not Detected Not Detected 01/28/2025 12:20 AM EDT [facility] Parainfluenza 2 Not Detected Not Detected 01/28/2025 12:20 AM EDT [facility] Parainfluenza 3 Not Detected Not Detected 01/28/2025 12:20 AM EDT [facility] Parainfluenza 4 Not Detected Not Detected 01/28/2025 12:20 AM EDT [facility] Resp. Syncycial Virus A Not Detected Not Detected 01/28/2025 12:20 AM EDT [facility] Resp. Syncycial Virus B Not Detected Not Detected 01/28/2025 12:20 AM EDT [facility] Chlamydia pneumoniae Not Detected Not Detected 01/28/2025 12:20 AM EDT [facility] Mycoplasma pneumoniae Not Detected Not Detected 01/28/2025 12:20 AM EDT [facility] Comment: The Respiratory Viral-Bacterial [...] Test results have been sent to the [facility] in accordance with state requirements. For a fact sheet for healthcare providers, see https://www.fda.gov/media/946617/download. For a fact sheet for patients, see https://www.fda.gov/media/409917/download. Nasopharyngeal Swab NASOPHARYNGEAL STRUCTURE / Unknown 01/27/2025 9:30 PM EDT 01/27/2025 10:20 PM EDT us Shelby Blanco MD BODY FLUIDS AND STOOLS ORDERABLE S Final Result Performing Organization Address City/[facility]/ZIP Co de Phone Number [facility] [address] * Lactic acid, venous, whole blood (01/27/2025 9:30 PM EDT) Lactate, Shakeel 1.4 0.5 - 1.6 mmol/L 01/27/2025 9:42 PM EDT [facility] Blood, Venous 01/27/2025 9:3 0 PM EDT 01/27/2025 9:39 PM EDT us Pamela JACOME LAB BLOOD ORDERABLES Final Res ult [facility] [address] * Histoplasma/Blastomyces Ag, EIA, U (01/27/2025 8:44 PM EDT) [facility] [address] Histoplasma/Blasto myces Ag Result (Urine) Not Detected Not Detected 01/31/2025 11:06 AM EDT [facility] Comment: No antigen from Histoplasma or Blastomyces detected. False negative results may occur depending on extent of disease, and/or site of infection. Repeat testing on a new specimen if clinically indicated. Histoplasma/Blasto myces Ag Value (Urine) Not Detected ng/mL 01/31/2025 11:06 AM EDT [facility] Comment: ADDITIONAL INFORMATION This test was developed and its performance characteristics determined by [facility] in a manner consistent with CLIA requirements. This test has not been cleared or approved by the U.S. Food and Drug Administration. Test Performed by: [facility] [place] [id number] [place] [address] Top Polisher: Kathy Ortiz Ph.D.; CLIA# [id number] Urine URINE SPECIMEN / Unknown 01/27/2025 8:44 PM EDT 01/31/2025 11:06 AM EDT Shelby Blanco MD URINE ORDERABLES Final Result [facility] [address] * Strep Pneumo-Legionella Urine Antigen (01/27/2025 8:44 PM EDT) Pathologist [facility] Strept Pneumo Ag Negative Negative 01/27/2025 11:12 PM EDT [facility] Legionella Antigen Negative Negative 01/27/2025 11:12 PM EDT [facility] Urine URINE SPECIMEN / Unknown 01/27/2025 8:44 PM EDT 01/27/2025 10:21 PM EDT Narrative [facility] - 01/27/2025 11:12 PM EDT Positive indicates detection of either Streptococcus pneumoniae antigen or Legionella pneumophila serogroup 1 antigen. Negative results do not rule out pneumococcal infection or infection with L. pneumophila serogroup 1, other serogroups of L. pneumophila, or other Legionella species. Shelby Blanco MD URINE ORDERABLES Final Result Performing Organization Address [facility] Co de Phone Number [facility] [address] [place] [address]. [address] * (ABNORMAL) Urinalysis, Microscopic (01/27/2025 8:44 PM EDT) RBC, UA <1 0 - 3 /HPF 01/27/2025 9:32 PM EDT [facility] WBC, UA 1 0 - 5 /HPF 01/27/2025 9:32 PM EDT [facility] Hyaline Casts, UA 75(H) 0 - 2 /LPF 01/27/2025 9:32 PM EDT [facility] Mucus, UA Present(A) None Seen /HPF 01/27/2025 9:32 PM EDT [facility] Urine 01/27/2025 8:44 PM EDT 01/27/2025 9:01 PM EDT us Pamela JACOME URINE ORDERABLES Final Result Performing Organization Address [facility] Co de Phone Number [facility] [address] [facility]. [address] * (ABNORMAL) Urinalysis-Macroscopic w/Rfx to Microsco (01/27/2025 8:44 PM EDT) Color, UA Yellow Yellow,Straw 01/27/2025 9:32 PM EDT [facility] Clarity, UA Clear Clear 01/27/2025 9:32 PM EDT [facility] Specific [place], UA 1.015 1.005 - 1.035 01/27/2025 9:32 PM EDT [facility] pH, UA 5.5 5.0 - 8.0 01/27/2025 9:32 PM EDT [facility] Protein, UA 30(A) Negative mg/dL 01/27/2025 9:32 PM EDT [facility] Glucose, UA Negative Negative mg/dL 01/27/2025 9:32 PM EDT [facility] Ketones, UA 20(A) Negative mg/dL 01/27/2025 9:32 PM EDT [facility] Bilirubin, UA Negative Negative 01/27/2025 9:32 PM EDT [facility] Blood, UA Negative Negative 01/27/2025 9:32 PM EDT [facility] Nitrite, UA Negative Negative 01/27/2025 9:32 PM EDT [facility] Urobilinogen, UA <2.0 0.2 - 1.9 mg/dL 01/27/2025 9:32 PM EDT [facility] Leukocyte Esterase, UA Negative Negative 01/27/2025 9:32 PM EDT [facility] Urine 01/27/2025 8:44 PM EDT 01/27/2025 8:53 PM EDT Pamela JACOME URINE ORDERABLES Final Result [facility] [address] * Histoplasma/Blastomyces Ag, EIA, S (01/27/2025 8:20 PM EDT) Histoplasma/Blasto myces Ag Result (Serum) Not Detected Not Detected 01/30/2025 12:49 PM EDT [facility] Comment: No antigen from Histoplasma or Blastomyces detected. False negative results may occur depending on extent of disease, and/or site of infection. Repeat testing on a new specimen if clinically indicated. Histoplasma/Blasto myces Ag Value (Serum) Not Detected ng/mL 01/30/2025 12:49 PM EDT [facility] Comment: ADDITIONAL INFORMATION This test was developed and its performance characteristics determined by [facility] in a manner consistent with CLIA requirements. This test has not been cleared or approved by the U.S. Food and Drug Administration. Test Performed by: [facility] [address] [place] [address] Top Polisher: Kathy Ortiz Ph.D.; CLIA# [id number] Serum SERUM SPECIMEN / Unknown 01/27/2025 8:20 PM EDT 01/30/2025 12:49 PM EDT Comment:S us Shelby Blanco MD LAB BLOOD ORDERABLES Final Resul t [facility] [address] [place] [address], [facility] * Fungitell (01/27/2025 8:20 PM EDT) Fungitell Value <31.25 pg/mL 4:19 PM EDT [facility] Reference Value Comment 4:19 PM EDT [facility] Comment:Negative: <60, Posit bradley: >/=60 Clinical Relevance Notes 2024 4:19 PM EDT [facility] [facility] Comment: The Fungitell test is [...] Cryptococcus, which produce very low levels of (1,3)-oyzo-A-xwrvue. This test will not detect the zygomycetes, such as Absidia, Blastomyces, Mucor, and Rhizopus, which are not known to produce (1,3)-dzso-L-cxpuwc. In addition, the yeast phase of Blastomyces dermatitidis produces little (1,3)-giia-D-sxzgzb and may not be detected by the assay. Disclaimer: Notes 02/02/2025 4:19 PM EDT [facility] Comment: This test has been cleared or approved for diagnostic use by the U.S. Food and Drug Administration. Performance characteristics were verified by [facility]. Electronically signed by: Comment 02/02/2025 4:19 PM EDT [facility]ALTH LAB Comment:Usha Landin Result Comment 02/03/20 4:19 PM EDT [facility] Comment:Negative Interpretation Notes 02/02/2025 4:19 PM EDT [facility] Comment: (1,3) Ctft-B-Fntsnc was NOT DETECTED in the sample. Reasons for negative results could include the patient being in the early stage of infection before detectable levels of (1,3) Xbsr-J-Bdsonx are present. Clinical diagnosis should be made in the context of the patient's complete medical history. Serum 01/27/2025 8:20 PM EDT 02/02/2025 5:07 PM EDT Narrative HEALTH LAB - 02/02/2025 5:07 PM EDT PERFORMED AT: [facility] [employer] [address] [id number] [employer]DI[employer] POLICY SPECIALIST: Cyril Porter, PhD PHONE: [phone] us Shelby Blanco MD LAB BLOOD ORDERABLES Final Resul t Performing Organization Address City/[facility]/ZIP Co de Phone Number [facility] [address] * Cryptococcus Ag (01/27/2025 8:20 PM EDT) Crypto Ag, Ser Negative Negative 01/27/2025 11:41 PM EDT [facility] Crypto Ag Titer, Ser Not Applicable 01/27/2025 11:41 PM EDT [facility] Serum SERUM SPECIMEN / Unknown 01/27/2025 8:20 PM EDT 01/27/2025 10:04 PM EDT Comment:S Shelby Blanco MD LAB BLOOD ORDERABLES Final Resul t [facility] [address] * BK PCR, Blood (Renal Txp and BMT only) (01/27/2025 8:20 PM EDT) BKV IU DNA Quant, Blood Not Detected IU/mL 01/29/2025 1:48 PM EDT [facility] Comment: Beginning August 23, 2021, [facility] has transitioned BK viral load [...] log 10 IU/mL 01/29/2025 1:48 PM EDT [facility] Comment:BKV DNA Not Detected Plasma 01/27/2025 8:20 PM EDT 01/27/2025 9:49 PM EDT us Shelby Blanco MD LAB BLOOD ORDERABLES Final Resul t [facility] [address] [facility]. [place] [address], [facility] * Katie-Schafer Virus (EBV) PCR (01/27/2025 8:20 PM EDT) Pathologist [facility] EBV DNA, Quantitative PCR Not Detected IU/mL 01/28/2025 10:54 AM EDT [facility] EBV DNA, Log10 See Note log 10 IU/mL 01/28/2025 10:54 AM EDT [facility] Comment: Beginning September 05, 2022, [facility] has transitioned EBV viral load [...] Resul t Performing Organization Address [facility]/ZIP Co de Phone Number [facility] [address] * Adenovirus PCR (01/27/2025 8:20 PM EDT) Pathologist [facility] Adenovirus, Quantitative PCR 0 0 - 0 copies/mL 02/03/2025 1:12 PM EDT [facility] Comment: Testing performed by [facility], [address] [place] [address]. This test(s) was developed and its performance characteristics determined and validated by the Department of Pathology and Laboratory Medicine at [facility]. It has not been cleared [...] Resul t Performing Organization Address [facility]/ZIP Co de Phone Number [facility] [address] [place] [address] * Aspergillus Ag (01/27/2025 8:20 PM EDT) Pathologist [facility] Aspergillus Ag. 0.03 0.00 - 0.49 Index 01/30/2025 5:54 PM EDT [facility] Serum SERUM SPECIMEN / Unknown 01/27/2025 8:20 PM EDT 01/31/2025 4:23 AM EDT Comment:S Shelby Blanco MD BODY FLUIDS AND STOOLS ORDERABLE S Final Result Performing Organization Address City/[facility]/ZIP Co de Phone Number [facility] [address] * Blood culture-Peripheral (Blood) (01/27/2025 8:20 PM EDT) Only the most recent of2 resultswithin the time period is included. Culture Result No Growth After 5 Days [facility] Blood BLOOD SPECIMEN / Unknown 01/27/2025 8:20 PM EDT 01/27/2025 9:57 PM EDT Pamela JACOME MICROBIOLOGY - GENERAL ORDERAB LES Final Result Performing Organization Address [facility] Co de Phone Number [facility] [address] [facility]. [address] * (ABNORMAL) Lipase (01/27/2025 8:20 PM EDT) Lipase 3(L) 4 - 82 U/L 01/27/2025 9:0 3 PM EDT [facility] Plasma 01/27/2025 8:20 PM EDT 01/27/2025 8:34 PM EDT Pamela JACOME LAB BLOOD ORDERABLES Final Res ult Performing Organization Address City/[facility] Co de Phone Number [facility] [address] [facility]. [address] * Hemoglobin A1c (01/27/2025 8:20 PM EDT) Hemoglobin A1C 4.0 4.0 - 5.6 % 01/27/2025 11:49 PM EDT [facility] Comment: Hemoglobin A1c Interpretation [...] PM EDT 01/27/2025 8:57 PM EDT Narrative [facility] - 01/27/2025 11:49 PM EDT A1C project?->Yes us Pamela JACOME LAB BLOOD ORDERABLES Final Res ult [facility] [address] [facility] [place] [address], [facility] * Basic metabolic panel (01/27/2025 8:20 PM EDT) Sodium 136 133 - 146 mmol/L 01/27/2025 9:03 PM EDT [facility] Potassium 4.0 3.5 - 5.3 mmol/L 01/27/2025 9:03 PM EDT [facility] Chloride 100 98 - 110 mmol/L 01/27/2025 9:03 PM EDT [facility] CO2 25 21 - 33 mmol/L 01/27/2025 9:03 PM EDT [facility] Anion Gap 11 3 - 16 mmol/L 01/27/2025 9:03 PM EDT [facility] BUN 16 7 - 25 mg/dL 01/27/2025 9:03 PM EDT [facility] Creatinine 1.02 0.60 - 1.30 mg/dL 01/27/2025 9:03 PM EDT [facility] Glucose 93 70 - 100 mg/dL 01/27/2025 9:03 PM EDT [facility] Calcium 9.7 8.6 - 10.3 mg/dL 01/27/2025 9:03 PM EDT [facility] Osmolality, Calculated 283 278 - 305 mOsm/kg 01/27/2025 9:03 PM EDT [facility]ALTH [facility] EGFR >90 01/27/2025 9:03 PM EDT [facility] Comment: As of 2021, the [...] JACOME LAB BLOOD ORDERABLES Final Res ult [facility] [address] [place] [address], [facility] * X-ray Chest PA and [...] IMAGING ORDERAB LES Final Result * Urine culture (01/06/2025 12:23 PM EDT) Only the most recent of4 resultswithin the time period is included. Pathologist [facility] Urine Culture, Comprehensive no growth URINE [...] (HBV), PCR, Quant (11/25/2024 8:42 AM EDT) Pathologist [facility] Hep B Viral DNA IU/ML Not Detected IU/mL 11/28/2024 10:09 AM EDT [facility] Comment:Test methodology for HBV DNA quantification is an FDA-approved nucleic acid amplification assay. The lower limit of quantitation (LLOQ) is 10 IU/mL. The linear range of the assay is 10-1,000,000,000 IU/mL. The limit of detection (LoD) for plasma is 2.7 IU/mL. The reference range is Not Detected. log 10 HBV as IU/mL See Note log 10 IU/mL 11/28/2024 10:09 AM EDT [facility] Comment:HBV DNA not detected . Plasma 11/25/2024 8:42 AM EDT 11/25/2024 10:59 AM EDT [facility] - 11/28/2024 10:09 AM EDT One time lab order to be collected with next set of standing liver transplant labs. UNOS requirement. Please fax all results to [phone]. Call critical results to [phone]. us Harvey Domínguez III, MD LAB BLOOD ORDERABLE S Final Result [facility] [address] * HIV-1 RNA, Quantitative, PCR (11/25/2024 8:42 AM EDT) Pathologist [facility] HIV 1 Copies Not Detected copies/mL 11/26/2024 10:57 AM EDT [facility] Comment:Test methodology for HIV-1 RNA quantification is an FDA-approved nucleic acid amplification assay. The Lower Limit of Quantitation (LLoQ) is 20 copies/mL. The linear range is 20- to 10,000,000 copies/mL. The Limit of Detection (LoD) is 13.2 copies/mL. The reference range is Not Detected. HIV [id number] See Note [id number] /mL 11/26/2024 10:57 AM EDT [facility] Comment:HIV-1 RNA not detect ed. Plasma 11/25/2024 8:42 AM EDT 11/25/2024 10:59 AM EDT Narrative [facility] - 11/26/2024 10:57 AM EDT One time lab order to be collected with next set of standing liver transplant labs. UNOS requirement. Please fax all results to [phone]. Call critical results to [phone]. Harvey Domínguez III, MD LAB BLOOD ORDERABLE S Final Result Performing Organization Address [facility]/ZIP Co de Phone Number [facility] [address] * Hepatitis C RNA, Quantitative PCR (11/25/2024 8:42 AM EDT) Pathologist [facility] International Units Not Detected IU/mL 11/27/2024 11:35 AM EDT [facility] Comment:Test methodology for HCV RNA quantification is an FDA-approved nucleic acid amplification assay. The Lower Limit of Quantitation (LLOQ) is 15 IU/mL. The linear range of the assay is 15-100,000,000 IU/mL. The Limit of Detection (LoD) is 12.0 IU/mL for EDTA plasma. The reference range is Not Detected. IU log10 See Note log 10 IU/mL 11/27/2024 11:35 AM EDT [facility] Comment:HCV RNA not detected . Plasma 11/25/2024 8:42 AM EDT 11/25/2024 10:59 AM EDT Narrative [facility] - 11/27/2024 11:35 AM EDT One time lab order to be collected with next set of standing liver transplant labs. UNOS requirement. Please fax all results to [phone]. Call critical results to [phone]. Harvey Domínguez III, MD LAB BLOOD ORDERABLE S Final Result Performing Organization Address City/[facility]/ZIP Co de Phone Number [facility] [address] * (ABNORMAL) Comprehensive metabolic panel (11/25/2024 8:42 AM EDT) Pathologist [facility] Sodium 141 133 - 146 mmol/L 11/25/2024 10:20 AM EDT [facility] Potassium 4.3 3.5 - 5.3 mmol/L 11/25/2024 10:20 AM EDT [facility] Chloride 106 98 - 110 mmol/L 11/25/2024 10:20 AM [facility] CO2 23 21 - 33 mmol/L 11/25/2024 10:20 AM [facility] Anion Gap 12 3 - 16 mmol/L 11/25/2024 10:20 AM [facility] BUN 43(H) 7 - 25 mg/dL 11/25/2024 10:20 AM [facility] Creatinine 1.59(H) 0.60 - 1.30 mg/dL 11/25/2024 10:20 AM [facility] Glucose 93 70 - 100 mg/dL 11/25/2024 10:20 AM [facility] Calcium 10.0 8.6 - 10.3 mg/dL 11/25/2024 10:20 AM [facility] Total Bilirubin 0.7 0.0 - 1.5 mg/dL 11/25/2024 10:20 AM [facility] AST 9(L) 13 - 39 U/L 11/25/2024 10:20 AM [facility] ALT 22 7 - 52 U/L 11/25/2024 10:20 AM [facility] Alkaline Phosphatase 198(H) 36 - 125 U/L 11/25/2024 10:20 AM [facility] Total Protein 7.0 6.4 - 8.9 g/dL 11/25/2024 10:20 AM [facility] Albumin 4.5 3.5 - 5.7 g/dL 11/25/2024 10:20 AM [facility] Osmolality, Calculated 303 278 - 305 mOsm/kg 11/25/2024 10:20 AM [facility] EGFR 56 11/25/2024 10:20 AM [facility] Comment:As of 2021, the estimated [...] Resu lt Performing Organization Address [facility] Co de Phone Number [facility] [address] [facility]. [address] * Hepatitis C Antibody (10/25/2024 10:17 PM EDT) HCV Ab Nonreactive Nonreactive 10/25/2024 11:16 PM EDT [facility] Comment:Health Department no tified in accordance with reportable infectious disease guidelines. Serum 10/25/2024 10:1 7 PM EDT 10/25/2024 10:17 PM EDT Narrative HEALTH LAB - 10/25/2024 11:16 PM EDT Antibodies to HCV not detected; does not exclude the possibility of exposure to HCV. us Aysha Gill MD LAB BLOOD ORDERABLES F inal Result Performing Organization Address [facility] Co de Phone Number [facility] [address] [facility]. [address] * TSH (Thyroid Stimulating Hormone) (10/07/2024 6:37 PM EDT) TSH 0.81 0.45 - 4.12 uIU/mL 10/07/2024 8:17 PM EDT [facility] Serum 10/07/2024 6:37 PM EDT 10/07/2024 6:50 PM EDT us Gerri Peterson MD LAB BLOOD ORDERABLES Final Resu lt Performing Organization Address City/[facility]/ZIP Co de Phone Number [facility] [address] [place] [address], [facility] from Last 3 Months or Most Recently Relevant to Health Maintenance Additional Health Concerns Infection Onset Date Last Indicated C. difficile 01/28/2025 01/28/2025 Insurance [facility] [employer] [facility] [employer] Member Subscriber Plan / Payer (Ef fective 2024-2025) Name:Julien Anderson Relation to Subscriber:Self Name:Julien Anderson Payer ID:[id number] Group ID:Not on file Type:Transplant Address: [address] [place] [address] Advance Directives For more information, please contact: [phone] * Full Code (Latest Code Status on [...] 9:42 AM 09/09/2024 10:30 PM Care Teams Director Of Trauma Relationship Specialty Start Date End Date Enedina Mcguire NP [address] [place] [address] PCP - General Internal Medicine 10/05/24 Maureen Pantoja, ЮЛИЯ Txp Post Coordinator Transplant Hepatology 10/28/24
--- OUTSIDE RECORDS SUMMARY | 2025-02-24 12:59 | XMS_ITS | Encounter Summary ---
Author Organization [facility] Address [address] [place] [address] Care Team Providers Care Able Bodied Seaman Name Role Phone Enedina Mcguire NP Primary Care Provider + [phone] Maureen Pantoja RN Unavailable Unavail able Source [...] release of HIV test results or diagnoses. [id number] Health Encounter Details Date Type Department Care Team (Late st Contact Info) Description 12/23/2024 Chart Note [facility] Liver Transplant at [address] [place] [phone] Maureen Pantoja, milling supervisor results from 12/23/24 [facility]. Social History Tobacco Use Types Packs/Day Years Used Date Smoking Tobacco: Former Cigarettes Smokeless Tobacco: Current Alcohol Use Standard Drinks/Week Comments Yes 0 (1 standard drink = 0.6 oz pure alcohol) History of alcohol abuse, reports no use in 3 week- typically endorses use as 4 glasses of wine a days Utilities Answer Date Recorded In the past 12 months has [employer], gas, oil, or water [employer] [...] EDT Lab results from 12/23/24 [facility] from [facility]. documented in this encounter Plan [...] (12/23/2024 9:53 AM EDT) Pathologist [facility] Glucose 88 BUN 19 CO2 27(A) 13 - 22 mmol/L Creatinine 0.80 Potassium 4.2 Sodium 138 Chloride 105 Phosphorus 5.2(A) 2.5 - 4.9 mg/dL Calcium 9.2 EGFR 107 mg/dL Albumin 4.4 3.5 - 5.0 g/dL Blood us Harvey Domínguez III, MD LAB BLOOD ORDERABLE S Final Result * Protime-INR (12/23/2024 9:53 AM EDT) Pathologist [facility] INR 0.94 0.9 - 1.1 Protime 10.5 Plasma us Harvey Domínguez III, MD LAB BLOOD ORDERABLE S Final Result * (ABNORMAL) CBC and differential (12/23/2024 9:53 AM EDT) Pathologist [facility] Hemoglobin 11.3(A) 13.5 - 17.5 g/dL [...] documented as of this encounter Care Teams Able Bodied Seaman Relationship Specialty Start Date End Date Enedina Mcguire NP [address] [place] [address] PCP - General Internal Medicine 10/05/24 Maureen Pantoja, RN Txp Post Coordinator Transplant Hepatology 10/28/24 documented as of this encounter
--- OUTSIDE RECORDS SUMMARY | 2025-02-24 12:59 | XMS_ITS | Encounter Summary ---
Author Organization [facility] Address [address] [place] [address] Care Team Providers Care Carpentry Professional Name Role Phone Enedina Mcguire NP Primary Care Provider + [phone] Maureen Pantoja RN Unavailable Unavail able Source [...] release of HIV test results or diagnoses. [id number] Reason for Visit * Reason Comments Results Encounter Details Date Type Department Care Team (Late st Contact Info) Description 12/29/2024 Telephone [facility] Liver Transplant at [address] [address] Maureen Pantoja, RN Results Social [...] In the past 12 months has [employer], gas, oil, or water [employer] threatened to shut off services in your [...] documented as of this encounter Care Teams Carpentry Professional Relationship Specialty Start Date End Date Enedina Mcguire NP [address] [place] [address] PCP - General Internal Medicine 10/05/24 Maureen Pantoja, RN Txp Post Coordinator Transplant Hepatology 10/28/24 documented as of this encounter
--- OUTSIDE RECORDS SUMMARY | 2025-02-24 12:59 | XMS_ITS | Encounter Summary ---
Author Organization [facility] Address [facility] [place] [address] Care Team Providers Care Set O Type Operator Name Role Phone Enedina Mcguire NP Primary Care Provider + [phone] Maureen Pantoja RN Unavailable Unavail able Source [...] release of HIV test results or diagnoses. [id number] Health Encounter Details Date Type Department Care [...] Recorded In the past 12 months has [employer], [employer], oil, or water [employer] threatened to shut off services in your [...] Date End Date Enedina Mcguire NP [address] [place] [address] PCP - General Internal Medicine 10/05/24 Maureen Pantoja, ЮЛИЯ Txp Post Coordinator Transplant Hepatology 10/28/24 documented as of this encounter
--- OUTSIDE RECORDS SUMMARY | 2025-02-24 12:59 | XMS_ITS | Encounter Summary ---
Author Organization [facility] Address [address] [place] [address] Care Team Providers Care Plycor Operator Name Role Phone Enedina Mcguire NP Primary Care Provider [phone] Maureen Pantoja RN Unavailable Unavail able Source [...] release of HIV test results or diagnoses. [id number] Reason for Visit * Reason Comments Medication Refill Encounter Details Date Type Department Care Team (Late st Contact Info) Description 12/21/2024 Refill [facility] Liver Transplant at [address] [address] Lydia Sanchez MD [address] [place] [address] Liver/[place] [address] Encounter for therapeutic drug monitoring; [...] for therapeutic drug monitoring S/P liver transplant ([facility]) Hypomagnesemia Disorders of magnesium metabolism Kidney [...] documented as of this encounter Care Teams Plycor Operator Relationship Specialty Start Date End Date Enedina Mcguire NP [address] [place] [address] PCP - General Internal Medicine 10/05/24 Maureen Pantoja, RN Txp Post Coordinator Transplant Hepatology 10/28/24 documented as of this encounter
--- OUTSIDE RECORDS SUMMARY | 2025-02-24 12:59 | XMS_ITS | Encounter Summary ---
Author Organization [facility] Address [address] [place] [address] Care Team Providers Care Technology Lead Name Role Phone Enedina Mcguire APRN Primary [...] alcohol) 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 [facility] Utilities Answer Date Recorded In the past 12 months has [employer], gas, oil, or water [email or web address] threatened to shut off services in your [...] Brief Depression Severity Measure Score 0 10/02/2022 [facility] of Occupat ional Health - Occupational Stress [...] [facility] [address] [facility] [address] [place] [address] Vazquez Christie PA-C [address] [place] [address] [address] [place] [id number] 05/18/2025 2:30 PM EST Office Visit [facility] INTERNAL MEDICINE [address] [place] [address] Enedina Mcguire APRN [address] [place] [phone] documented as of this encounter Visit Diagnoses Not on filedocumented in this encounter Additional Health Concerns Assessment Noted Time PHQ-2 Depression Total Score: 1 12/31/19 24 3:25 PM EDT documented as of this encounter Care Teams Technology Lead Relationship Specialty Start Date End Date Enedina Mcguire APRN [address] [place] [id number] PCP - General Nurse Practitioner 10/27/24 documented as of this encounter
--- OUTSIDE RECORDS SUMMARY | 2025-02-24 12:59 | XMS_ITS | Encounter Summary ---
Author Organization [facility] Address [address] [place] [address] Care Team Providers Care Measurement Supervisor Name Role Phone Enedina Mcguire APRN Primary Care Provider + Reason for Visit * Reason Onset Date Comments Appointment 01/08/2025 Encounter Details Date Type Department Care Team (Late st Contact Info) Description 01/08/2025 Telephone [facility] PAIN MANAGEMENT [address] [place] [phone] Vazquez Christie PA-C [address] [place] [address] Appointment Social History Tobacco Use Types Packs/Day Years Used Date Smoking Tobacco: Former Cigarettes 4 20 Passive Smoke Exposure: Past Smokeless Tobacco: Current Comments:MARIJUANA USE ABOUT 2X PER WEEK - reports no use 08-05-2024 Alcohol Use Standard Drinks/Week Comments Not Currently 0 (1 standard drink = 0.6 oz pure alcohol) 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 [facility] Utilities Answer Date Recorded In the past 12 months has [employer], gas, oil, or water [employer] threatened to shut off services in your [...] Brief Depression Severity Measure Score 0 10/02/2022 [facility] - Occupational Stress Questionnaire Answer [...] to patient: Self Best call back number: [phone] Chief complaint: C2/3 and C6/7 Medial branch [...] to patient: Self Best call back number: [phone] Patient is needing: PATIENT IS RETURNING A PHONE CALL TO [facility] - documented in this encounter Plan of Treatment Upcoming Encounters Date Type Department Care Team (Late st Contact Info) Description 04/02/2025 2:15 PM EST Office Visit [facility] PAIN MANAGEMENT [address] [facility] [address] [place] [address] Vazquez Christie PA-C [address] [facility] [address] [place] [phone] 05/18/2025 2:30 PM EST Office Visit [facility] INTERNAL MEDICINE [address] [place] [phone] Enedina Mcguire APRN [address] [place] [address] documented as of this encounter Visit Diagnoses Not on filedocumented in this encounter Additional Health Concerns Assessment Noted Time PHQ-2 Depression Total Score: 1 12/31/19 24 3:25 PM EDT documented as of this encounter Care Teams Measurement Supervisor Relationship Specialty Start Date End Date Enedina Mcguire APRN [address] [place] [address] PCP - General Nurse Practitioner 10/27/24 documented as of this encounter
--- OUTSIDE RECORDS SUMMARY | 2025-02-24 13:01 | XMS_ITS | Encounter Summary ---
Author Organization [facility] Address [address] [place] [address] Care Team Providers Care Mail Machine Operator Name Role Phone Enedina Mcguire NP Primary Care Provider + [phone] Maureen Pantoja RN Unavailable Unavail able Source [...] release of HIV test results or diagnoses. [id number] Health Encounter Details Date Type Department Care Team (Late st Contact Info) Description 01/15/2025 Chart Note [facility] Liver Transplant at [address] [place] [phone] Marlene Ro MA 01/14 Labs entered from [facility] Social History Tobacco Use Types [...] In the past 12 months has e [employer], gas, oil, or water [employer] threatened to shut off services in your [...] were not included. 01/14 Labs entered from [facility] documented in this encounter Plan [...] Tacrolimus level (01/14/2025 10:53 AM EDT) Pathologist [facility] Tacrolimus Lvl 9.6 6 - 15 ng/mL Whole Blood Result [facility] Provider LAB BLOOD ORDERABLES Denisse l Result * (ABNORMAL) Magnesium (01/14/2025 10:53 AM EDT) [facility] Magnesium 1.2(A) 1.6 - 2.4 mg/dL Plasma Narrative Resulting Agency Comment [facility] Result [facility] LAB BLOOD ORDERABLES Denisse l Result * Renal Function Panel w/o EGFR (01/14/2025 10:53 AM EDT) [facility] Glucose 94 BUN 19 CO2 21 13 - 22 mmol/L Creatinine 1.00 Potassium 4.4 Sodium 140 Chloride 109 Phosphorus 4.8 2.5 - 4.9 mg/dL Calcium 9.5 EGFR 82 mg/dL Albumin 4.8 3.5 - 5.0 g/dL Blood Narrative Resulting Agency Comment [facility] Result [facility] LAB BLOOD ORDERABLES Denisse l Result * Creatinine, urine, random (01/14/2025 10:53 AM EDT) [facility] Creatinine, Urine 90 Urine Narrative Resulting Agency Comment [facility] Result [facility] Provider URINE ORDERABLES Final Re sult * Urinalysis w/Rfl to Microscopic (01/14/2025 10:53 AM EDT) [facility] Glucose, UA Negative Negative Ketones, UA Negative Negative Blood, UA Negative Negative Bilirubin, UA Negative Negative Urobilinogen, UA Normal Normal Protein, UA Negative Negative Nitrite, UA Negative Negative pH, UA 5.5 4.5 - 8.0 Specific [place], UA 1.020 1.005 - 1.030 Clarity, UA Clear Clear Color, UA Yellow Light Yellow, Yellow Urine Narrative Resulting Agency Comment [facility] Result [facility] Provider URINE ORDERABLES Final Re sult * [...] 2.0 10^3/mL Blood Narrative Resulting Agency Comment [facility] Result [facility] LAB BLOOD ORDERABLES Denisse l Result * Urine Protein, Tot, Random (w/o Creat) (01/14/2025 10:53 AM EDT) Total Protein, Ur 13.0 Urine Narrative Resulting Agency Comment [facility] Result [facility] Provider URINE ORDERABLES Final Re sult * Hepatic Function Panel (01/14/2025 10:53 AM EDT) Bilirubin, Direct 0.2 Bilirubin, Indirect 0.5 Alkaline Phosphatase 49 ALT 15 AST 24 Total Bilirubin 0.7 Total Protein 6.8 Plasma Narrative Resulting Agency Comment [facility] Result [facility] Provider LAB BLOOD ORDERABLES Denisse l Result documented in this encounter Visit Diagnoses Not on filedocumented in this encounter Additional Health Concerns Infection Onset Date Last Indicated 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
--- OUTSIDE RECORDS SUMMARY | 2025-02-24 13:01 | XMS_ITS | Encounter Summary ---
Author Organization [facility] Address [address] [place] [address] Care Team Providers Care Roentgenology Teacher Name Role Phone Enedina Mcguire NP Primary Care Provider + [phone] Maureen Pantoja RN Unavailable Unavail able Source [...] release of HIV test results or diagnoses. [id number] Health Encounter Details Date Type Department Care Team (Late st Contact Info) Description 02/03/2025 Telephone [facility] Liver Transplant at [address] [address] Marlene Ro MA Social History [...] Recorded In the past 12 months has [employer], gas, oil, or water [employer] threatened to shut off services in your [...] living in a correction (including now)? No 01/28/2025 Yearly Questionnaire Answer [...] documented as of this encounter Care Teams Roentgenology Teacher Relationship Specialty Start Date End Date Enedina Mcguire NP [address] [place] [address] PCP - General Internal Medicine 10/05/24 Maureen Pantoja, RN Txp Post Coordinator Transplant Hepatology 10/28/24 documented as of this encounter
--- OUTSIDE RECORDS SUMMARY | 2025-02-24 13:01 | XMS_ITS | Encounter Summary ---
Author Organization [facility] Address [address] [place] [address] Care Team Providers Care Strip Machine Tender Name Role Phone Enedina Mcguire NP Primary Care Provider + [phone] Maureen Pantoja RN Unavailable Unavail able Source [...] release of HIV test results or diagnoses. [id number] Health Encounter Details Date Type Department Care Team (Late st Contact Info) Description 02/17/2025 Telephone [facility] Liver Transplant at [address] [address] Marlene Ro MA Social [...] Recorded In the past 12 months has [employer], gas, oil, or water [employer] threatened to shut off services in your [...] living in a custodial (including now)? No 01/28/2025 Yearly Questionnaire Answer [...] Progress Notes * Marlene Ro MA - 02/17/2025 4:27 PM EDT Anjelica, on behalf of his PCP called to obtain a verbal order for the OK for him to resume testosterone It was approved by Dr. Maza in his last office visit on 02/12. That was relayed to Anjelica. No further needs at this time. documented in this encounter Plan of Treatment Not on file documented as of this encounter Visit Diagnoses Not on filedocumented in this encounter Additional Health Concerns Infection Onset Date Last Indicated Resolved Time C. difficile 01/28/2025 01/28/2025 Assessment Noted Time PHQ-9 Depression Total Score: 2 12/11/19 9:00 AM EDT documented as of this encounter Care Teams Strip Machine Tender Relationship Specialty Start Date End Date Enedina Mcguire NP [address] [place] [address] PCP - General Internal Medicine 10/05/24 Maureen Pantoja, ЮЛИЯ Txp Post Coordinator Transplant Hepatology 10/28/24 documented as of this encounter
--- OUTSIDE RECORDS SUMMARY | 2025-02-24 13:01 | XMS_ITS | Encounter Summary ---
Author Organization [facility] Address [address] [place] [address] Care Team Providers Care Superintendent Pressure Name Role Phone Enedina Mcguire NP Primary Care Provider [phone] Maureen Pantoja RN Unavailable Unavail able Source [...] release of HIV test results or diagnoses. [id number] Reason for Visit * Reason Comments Medication Refill Encounter Details Date Type Department Care Team (Late st Contact Info) Description 01/17/2025 Refill [facility] Liver Transplant at [address] [phone] Harvey Domínguez III, MD [address] [place] [phone] Encounter for therapeutic drug monitoring; S/P liver transplant ([facility]); Hypomagnesemia; Kidney transplant recipient; Hypertension, unspecified type; [...] as of this encounter Care Teams Superintendent Pressure Relationship Specialty Start Date End Date Enedina Mcguire NP [address] [place] [address] PCP - General Internal Medicine 10/05/24 Maureen Pantoja, RN Txp Post Coordinator Transplant Hepatology 10/28/24 documented as of this encounter
--- OUTSIDE RECORDS SUMMARY | 2025-02-24 13:01 | XMS_ITS | Encounter Summary ---
Author Organization [facility] Address [address] [place] [address] Care Team Providers Care Filtrose Crusher Name Role Phone Enedina Mcguire NP Primary Care Provider + [phone] Maureen Pantoja RN Unavailable Unavail able Source [...] release of HIV test results or diagnoses. [id number] Reason for Visit * Reason Comments Critical Lab Results Encounter Details Date Type Department Care Team (Late st Contact Info) Description 01/19/2025 Telephone [facility] Liver Transplant at [address] [place] [phone] Gladis Chisholm MA Critical Lab Results [...] In the past 12 months has e [facility], gas, oil, or water [employer] threatened to shut off services in your [...] Chisholm MA - 01/19/2025 9:17 AM EDT [facility] lab called to report: Urine culture results; [...] documented as of this encounter Care Teams Filtrose Crusher Relationship Specialty [place] [address] [place], [place] [phone] PCP - General Internal Medicine 10/05/24 Maureen Pantoja, RN Txp Post Coordinator Transplant Hepatology 10/28/24 documented as of this encounter
--- OUTSIDE RECORDS SUMMARY | 2025-02-24 13:01 | XMS_ITS | Encounter Summary ---
Author Organization [facility] Address [address] [place] [address] Care Team Providers Care Microsoft Architect Name Role Phone Enedina Mcguire NP Primary Care Provider + [phone] Maureen Pantoja RN Unavailable Unavail able Source [...] release of HIV test results or diagnoses. [id number] Health Encounter Details Date Type Department Care Team (Late st Contact Info) Description 01/15/[address] [facility] Liver Transplant at [address] [address] Marlene Ro MA Social History [...] [facility], gas, oil, or water [employer] threatened to shut off services in your [...] AM EDT I spoke with Gavin at [facility] about the phosphatidylethanol order tied to the patient???s registration. Although the order was found, it wasn???t sent to phlebotomy, so no test was done on 01/14. Due to this recurring issue, I contacted the city supervisor, Gladys. We agreed I would notify the lab directly of one-time and standing orders and fax them at [phone] to prevent future errors. Gladys is also [...] documented as of this encounter Care Teams Microsoft Architect Relationship Specialty Start Date End Date Enedina Mcguire NP [address] [place] [address] PCP - General Internal Medicine 10/05/24 Maureen Pantoja, RN Txp Post Coordinator Transplant Hepatology 10/28/24 documented as of this encounter
--- OUTSIDE RECORDS SUMMARY | 2025-02-24 13:01 | XMS_ITS | Encounter Summary ---
Author Organization [facility] Address [address] [place] [address] Care Team Providers Care Ink Technician Name Role Phone Enedina Mcguire NP Primary Care Provider [phone] Maureen Pantoja RN Unavailable Unavail able Source [...] release of HIV test results or diagnoses. [id number] Reason for Visit * Reason Comments Medication Refill Encounter Details Date Type Department Care Team (Late st Contact Info) Description 02/08/2025 Refill [facility] Liver Transplant at [address] [address] Harvey Domínguez III, MD [address] [place] [phone] Social History Tobacco Use Types Packs/Day Years Used Date Smoking Tobacco: Former Cigarettes Smokeless Tobacco: Current Alcohol Use Standard Drinks/Week Comments Yes 0 (1 standard drink = 0.6 oz pure alcohol) History of alcohol abuse, reports no use in 3 week- typically endorses use as 4 glasses of wine a days Utilities Answer Date Recorded In the past 12 months has [employer], gas, oil, or water [employer] threatened to shut off services in [...] documented as of this encounter Care Teams Ink Technician Relationship Specialty Start Date End Date Enedina Mcguire NP [address] [place] [address] PCP - General Internal Medicine 10/05/24 Maureen Pantoja, ЮЛИЯ Txp Post Coordinator Transplant Hepatology 10/28/24 documented as of this encounter
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
--- OUTSIDE RECORDS SUMMARY | 2025-02-24 13:01 | XMS_ITS | Encounter Summary ---
Author Organization [facility] Address [address] [place] [address] Care Team Providers Care Music Writer Name Role Phone Enedina Mcguire NP Primary Care Provider + [phone] Maureen Pantoja RN Unavailable Unavail able Source [...] release of HIV test results or diagnoses. [id number] Health Encounter Details Date Type Department Care Team (Late st Contact Info) Description 02/23/2025 Chart Note [facility] Liver Transplant at [address] [place] [phone] Marlene Ro MA 02/18 Labs entered from [facility] Social [...] Recorded In the past 12 months has [employer], gas, oil, or water company threatened to [...] 10:34 AM EDT HEPATIC FUNCTION PANEL Routine 02/18/2025 10:34 AM EDT TACROLIMUS LEVEL Routine 02/18/2025 10:3 4 AM EDT CREATININE, URINE, RANDOM Routine 02/18/2025 10:34 AM EDT URINALYSIS W/RFL TO MICROSCOPIC Routine 02/18/2025 10:34 AM EDT CBC AND DIFFERENTIAL Routine 02/18/2025 10:34 AM EDT MAGNESIUM Routine 02/18/2025 10:34 AM EDT RENAL FUNCTION PANEL W/O EGFR Routine 02/18/2025 10:34 AM EDT documented in this encounter Results * (ABNORMAL) Magnesium (02/18/2025 10:34 AM EDT) Magnesium 1.4(A) 1.6 - 2.4 mg/dL Plasma Narrative Resulting Agency Comment [facility] us Historical Provider LAB BLOOD ORDERABLES Denisse l Result * (ABNORMAL) Renal Function Panel w/o EGFR (02/18/2025 10:34 AM EDT) Glucose 84 BUN 24 CO2 31(A) 13 - 22 mmol/L Creatinine 1.10 Potassium 4.3 Sodium 140 Chloride 99 Phosphorus 4.9 2.5 - 4.9 mg/dL Calcium 9.1 EGFR 74 mg/dL Albumin 4.4 3.5 - 5.0 g/dL Blood Narrative Resulting Agency Comment [facility] Result [facility] Provider LAB BLOOD ORDERABLES Denisse l Result * Tacrolimus level (02/18/2025 10:34 AM EDT) Tacrolimus Lvl 10.7 6 - 15 ng/mL Whole Blood Narrative Resulting Agency Comment [facility] Result [facility] Provider LAB BLOOD ORDERABLES Denisse l Result * Creatinine, urine, random (02/18/2025 10:34 AM EDT) Creatinine, Urine 54 Urine Narrative Resulting Agency Comment [facility] Result [facility] Provider URINE ORDERABLES Final Re sult * Urinalysis w/Rfl to Microscopic (02/18/2025 10:34 AM EDT) Glucose, UA Negative Negative Ketones, UA Negative Negative Blood, UA Negative Negative Bilirubin, UA Negative Negative Urobilinogen, UA Normal Normal Protein, UA Negative Negative pH, UA 5.5 4.5 - 8.0 Specific [place], UA 1.015 1.005 - 1.030 Clarity, UA Clear Clear Color, UA Yellow Light Yellow, Yellow Urine Narrative Resulting Agency Comment [facility] Result [facility] Provider URINE ORDERABLES Final Re sult * (ABNORMAL) CBC and differential (02/18/2025 10:34 AM EDT) Hemoglobin 12.9(A) 13.5 - 17.5 g/dL Hematocrit [...] 4.9 10^3/mL Blood Narrative Resulting Agency Comment [facility] Provider LAB BLOOD ORDERABLES Denisse l Result * Urine Protein, Tot, Random (w/o Creat) (02/18/2025 10:34 AM EDT) Total Protein, Ur 22.0 Urine Narrative Resulting Agency Comment [facility] Result [facility] Provider URINE ORDERABLES Final Re sult * Hepatic Function Panel (02/18/2025 10:34 AM EDT) Bilirubin, Direct 0.0 Bilirubin, Indirect 0.5 Alkaline Phosphatase 85 ALT 19 AST 24 Total Bilirubin 0.5 Total Protein 7.1 Plasma Narrative Resulting Agency Comment [facility] Result [facility] Provider LAB BLOOD ORDERABLES Denisse l Result documented in this encounter Visit Diagnoses Not on filedocumented in this encounter Additional Health Concerns Infection Onset Date Last Indicated Resolved Time C. difficile 01/28/2025 01/28/2025 Assessment Noted Time PHQ-9 Depression Total Score: 2 12/11/19 25 9:00 AM EDT documented as of this encounter Care Teams Music Writer Relationship Specialty Start Date End Date Enedina Mcguire NP [address] [place] [address] PCP - General Internal Medicine 10/05/24 Maureen Pantoja, RN Txp Post Coordinator Transplant Hepatology 10/28/24 documented as of this encounter
--- OUTSIDE RECORDS SUMMARY | 2025-02-24 13:01 | XMS_ITS | Encounter Summary ---
Author Organization [facility] Address [address] [place] [address] Care Team Providers Care Fagot Heater Name Role Phone Enedina Mcguire NP Primary Care Provider + [phone] Maureen Pantoja RN Unavailable Unavail able Source [...] release of HIV test results or diagnoses. [id number] Reason for Visit * Reason Comments Results Encounter Details Date Type Department Care Team (Riky st Contact Info) Description 01/16/2025 Telephone [facility] Liver Transplant at [address] [address] Maureen Pantoja, RN Results [...] In the past 12 months has e [employer], gas, oil, or water [employer] threatened to shut off services in your [...] documented as of this encounter Care Teams Fagot Heater Relationship Specialty Start Date End Date Enedina Mcguire NP [address] [place] [address] PCP - General Internal Medicine 10/05/24 Maureen Pantoja, ЮЛИЯ Txp Post Coordinator Transplant Hepatology 10/28/24 documented as of this encounter
--- OUTSIDE RECORDS SUMMARY | 2025-02-24 13:01 | XMS_ITS | Encounter Summary ---
Author Organization [facility] Address [address] [place] [address] Care Team Providers Care Harvesting Manager Name Role Phone Enedina Mcguire NP Primary Care Provider + [phone] Maureen Pantoja RN Unavailable Unavail able Source [...] release of HIV test results or diagnoses. [id number] Health Encounter Details Date Type Department Care Team (Late st Contact Info) Description 02/23/2025 Telephone [facility] Liver Transplant at [address] [address] Marlene Ro MA Social History [...] Recorded In the past 12 months has [employer], gas, oil, or water [employer] threatened to shut off services in [...] Progress Notes * Marlene Ro MA - 02/23/2025 11:42 AM EDT Called to check on the status of a phosphatidylethanol confirmation 02/10. According to Marielos with medical records, it is still pending. I am obtaining lab results from 02/18. Will enter upon receipt. documented in this encounter Plan of Treatment Not on file documented as of this encounter Visit Diagnoses Not on filedocumented in this encounter Additional Health Concerns Infection Onset Date Last Indicated Resolved Time C. difficile 01/28/2025 01/28/2025 Assessment Noted Time PHQ-9 Depression Total Score: 2 12/11/19 9:00 AM EDT documented as of this encounter Care Teams Harvesting Manager Relationship Specialty Start Date End Date Enedina Mcguire NP [address] [place] [address] PCP - General Internal Medicine 10/05/24 Maureen Pantoja, ЮЛИЯ Txp Post Coordinator Transplant Hepatology 10/28/24 documented as of this encounter
--- OUTSIDE RECORDS SUMMARY | 2025-02-24 13:01 | XMS_ITS | Encounter Summary ---
Author Organization [facility] Address [address] [place] [address] Care Team Providers Care Brake Lining Finisher Asbestos Name Role Phone Enedina Mcguire NP Primary Care Provider + [phone] Maureen Pantoja RN Unavailable Unavail able Source [...] release of HIV test results or diagnoses. [id number] Health Encounter Details Date Type Department Care Team (Late st Contact Info) Description 02/04/2025 Telephone [facility] Liver Transplant at [address] [phone] Marlene Ro MA Social History [...] Recorded In the past 12 months has [employer], gas, oil, or water [email or web address] threatened to shut off services in your [...] documented as of this encounter Care Teams Brake Lining Finisher Asbestos Relationship Specialty Start Date End Date Enedina Mcguire NP [address] [place] [address] PCP - General Internal Medicine 10/05/24 Maureen Pantoja, ЮЛИЯ Txp Post Coordinator Transplant Hepatology 10/28/24 documented as of this encounter
--- OUTSIDE RECORDS SUMMARY | 2025-02-24 13:03 | XMS_ITS | Encounter Summary ---
Author Organization [facility] Address [address] [place] [address] Care Team Providers Care Chain Machine Operator Name Role Phone Enedina Mcguire NP Primary Care Provider + [phone] Maureen Pantoja RN Unavailable Unavail able Source [...] release of HIV test results or diagnoses. [id number] Health Encounter Details Date Type Department Care Team (Late st Contact Info) Description 01/14/2025 Telephone [facility] Liver Transplant at [address] [phone] Marlene Ro MA Social [...] Recorded In the past 12 months has [employer], gas, oil, or water [email or web address] threatened to shut off services in your [...] as of this encounter Care Teams Chain Machine Operator Relationship Specialty Start Date End Date Enedina Mcguire NP [address] [place] [address] PCP - General Internal Medicine 10/05/24 Maureen Pantoja, ЮЛИЯ Txp Post Coordinator Transplant Hepatology 10/28/24 documented as of this encounter
--- OUTSIDE RECORDS SUMMARY | 2025-02-24 13:03 | XMS_ITS | Encounter Summary ---
Author Organization [facility] Address [address] [place] [address] Care Team Providers Care Sorter Laundry Articles Name Role Phone Enedina Mcguire NP Primary Care Provider + [phone] Maureen aPntoja RN Unavailable Unavail able Source Comments This [...] release of HIV test results or diagnoses. [id number] Reason for Visit * Reason Comments Results Encounter Details Date Type Department Care Team (Riky st Contact Info) Description 01/05/2025 Telephone [facility] Liver Transplant at [address] [address] Maureen Pantoja, RN Results Social [...] In the past 12 months has e [employer], gas, oil, or water [employer] threatened to shut off services in your [...] as of this encounter Care Teams Sorter Laundry Articles Relationship Specialty Start Date End Date Enedina Mcguire NP [address] [place] [address] PCP - General Internal Medicine 10/05/24 Maurene Pantoja, ЮЛИЯ Txp Post Coordinator Transplant Hepatology 10/28/24 documented as of this encounter
--- OUTSIDE RECORDS SUMMARY | 2025-02-24 13:03 | XMS_ITS | Encounter Summary ---
Author Organization [employer] ([place], [place], [place], [place]) Address [address] [place] [address] Care Team Providers Care Pin Machine Operator Name Role Phone Unavailable Primary Care Provider Unavailabl e Encounter Details Date Type Department Care Team (Late st Contact Info) Description 06/03/2018 Transcribed Document [facility] [place] [facility] [address] [place] [address] ProviderEbenezer MD [address] [place], [place] [id number] Social History Tobacco Use Types Packs/Day Years [...] - Historical ProviderMD - 06/03/2018 3:03 PM CHIEF OPERATOR ED Discharge Entered On: 06/03/2018 15:03 EST Performed On: 06/03/2018 15:03 EST by Lizeth Almeida, tempering kiln tender Process Patient Disposition : Discharge Personal [...] 06/03/2018 15:03 EST Electronically signed by Gabriela [facility] Conversion Staff Radiologist Celia at 08/29/2022 6:35 PM CDT documented in this encounter Plan of Treatment Not on file documented as of this encounter Visit Diagnoses Not on filedocumented in this encounter
--- OUTSIDE RECORDS SUMMARY | 2025-02-24 13:03 | XMS_ITS | Encounter Summary ---
Author Organization [facility] Address [address] [place] [address] Care Team Providers Care Underwriting Specialist Name Role Phone Enednia Mcguire NP Primary Care Provider + [phone] Maureen Pantoja RN Unavailable Unavail able Source [...] release of HIV test results or diagnoses. [id number] Health Encounter Details Date Type Department Care Team (Late st Contact Info) Description 02/03/2025 Chart Note [facility] Liver Transplant at [address] [place] [phone] Marlene oR MA 02/03 Labs entered from [facility] Social History Tobacco Use Types Packs/Day Years Used Date Smoking Tobacco: Former Cigarettes Smokeless Tobacco: Current Alcohol Use Standard Drinks/Week Comments Yes 0 (1 standard drink = 0.6 oz pure alcohol) History of alcohol abuse, reports no use in 3 week- typically endorses use as 4 glasses of wine a days Utilities Answer Date Recorded In the past 12 months has [employer], gas, oil, or water [employer] threatened to shut off services in your [...] Notes * Marlene Ro MA - 02/03/2025 2:14 PM EDT Images from the original note were not included. 02/03 Labs entered from [facility] documented in this encounter Plan of Treatment Not on file documented as of this encounter Procedures Procedure Name Priority Date/Time Associated Diagnosis Comments CLOSTRIDIUM DIFFICILE DNA AMPLIFICATION Routine 02/03/2025 11:04 AM EDT PHATIDYLETHANOL (PETH) Routine 9:39 AM EDT URINE PROTEIN, TOTAL, RANDOM [...] Amp. Positive Norovirus Detected FECES / Unknown Result [facility] Provider BODY FLUIDS AND STOOLS OR DERABLES Edited Result - Final * Phatidylethanol (PEth) (02/03/2025 9:39 AM EDT) Phosphatidylethanol (PEth) Positive 312 Whole Blood Result [facility] LAB BLOOD ORDERABLES Denisse l Result * Tacrolimus level (02/03/2025 9:39 AM EDT) Tacrolimus Lvl 7.0 6 - 15 ng/mL Whole Blood Narrative Resulting Agency Comment Kev [facility] Result [facility] LAB BLOOD ORDERABLES Denisse l Result * Cytomegalovirus DNA, Quant, RT PCR (02/03/2025 9:39 AM EDT) CMV Quant DNA PCR (Plasma) Negative Plasma Narrative Resulting Agency Comment [facility] Result [facility] LAB BLOOD ORDERABLES Denisse l Result * BK Virus Quantitative by PCR, Blood (02/03/2025 9:39 AM EDT) BK Virus Quant PCR PL Negative Plasma Narrative Resulting Agency Comment [facility] LAB BLOOD ORDERABLES Denisse l Result * Creatinine, urine, random (02/03/2025 9:39 AM EDT) Creatinine, Urine 79 Urine Narrative Resulting Agency Comment [facility] Result [facility] Provider URINE ORDERABLES Final Re sult * Urine Protein, Tot, Random (w/o Creat) (02/03/2025 9:39 AM EDT) Pathologist [facility] Total Protein, Ur 12.0 Urine Narrative Resulting Agency Comment [facility] Result [facility] Provider URINE ORDERABLES Final Re sult * Hepatic Function Panel (02/03/2025 9:39 AM EDT) Pathologist [facility] Bilirubin, Direct 0.1 Bilirubin, Indirect 0.4 Alkaline Phosphatase 61 ALT 15 AST 18 Total Bilirubin 0.5 Total Protein 6.4 Plasma Narrative Resulting Agency Comment [facility] Result [facility] LAB BLOOD ORDERABLES Denisse l Result * (ABNORMAL) Magnesium (02/03/2025 9:39 AM EDT) [facility] Magnesium 1.3(A) 1.6 - 2.4 mg/dL Plasma Narrative Resulting Agency Comment [facility] Result [facility] Provider LAB BLOOD ORDERABLES Denisse l Result * (ABNORMAL) Renal Function Panel w/o EGFR (02/03/2025 9:39 AM EDT) Pathologist [facility] Glucose 114 BUN 17 CO2 28(A) 13 - 22 mmol/L Creatinine 0.90 Potassium 4.1 Sodium 140 Chloride 103 Phosphorus 5.5(A) 2.5 - 4.9 mg/dL Calcium 9.4 EGFR 93 mg/dL Albumin 4.5 3.5 - 5.0 g/dL Blood Narrative Resulting Agency Comment [facility] Result [facility] Provider LAB BLOOD ORDERABLES Denisse l Result * Urinalysis w/Rfl to Microscopic (02/03/2025 9:39 AM EDT) Pathologist [facility] Glucose, UA Negative Negative Ketones, UA Negative Negative Blood, UA Negative Negative Bilirubin, UA Negative Negative Urobilinogen, UA Normal Normal Protein, UA Negative Negative Nitrite, UA Negative Negative pH, UA 6.0 4.5 - 8.0 Specific [place], UA 1.020 1.005 - 1.030 Clarity, UA Clear Clear Color, UA Yellow Light Yellow, Yellow Urine Narrative Resulting Agency Comment [facility] Historical Provider URINE ORDERABLES Final Re sult * (ABNORMAL) CBC and differential (02/03/2025 9:39 AM EDT) Hemoglobin 12.2(A) 13.5 - 17.5 [...] 2.8 10^3/mL Blood Narrative Resulting Agency Comment [facility] Historical Provider LAB BLOOD ORDERABLES Denisse l Result documented in this encounter Visit Diagnoses Not on filedocumented in this encounter Additional Health Concerns Infection Onset Date Last Indicated Resolved Time C. difficile 01/28/2025 01/28/2025 Assessment Noted Time PHQ-9 Depression Total Score: 2 12/11/19 25 9:00 AM EDT documented as of this encounter Care Teams Underwriting Specialist Relationship Specialty Start Date End Date Enedina Mcguire NP [address] [place] [address] PCP - General Internal Medicine 10/05/24 Maureen Pantoja, ЮЛИЯ Txp Post Coordinator Transplant Hepatology 10/28/24 documented as of this encounter
--- OUTSIDE RECORDS SUMMARY | 2025-02-24 13:03 | XMS_ITS | Encounter Summary ---
Author Organization [facility] Address [address] [place] [address] Care Team Providers Care Pot Room Supervisor Name Role Phone Enedina Mcguire NP Primary Care Provider + [phone] Maureen Pantjoa RN Unavailable Unavail able Source Comments This [...] release of HIV test results or diagnoses. [id number] Health Encounter Details Date Type Department Care Team (Late st Contact Info) Description 02/10/2025 Chart Note [facility] Liver Transplant at [address] [place] [phone] Marlene Ro MA 02/10 Labs entered from [facility] Social History Tobacco Use Types Packs/Day Years Used Date Smoking Tobacco: Former Cigarettes Smokeless Tobacco: Current Alcohol Use Standard Drinks/Week Comments Yes 0 (1 standard drink = 0.6 oz pure alcohol) History of alcohol abuse, reports no use in 3 week- typically endorses use as 4 glasses of wine a days Utilities Answer Date Recorded In the past 12 months has [employer], gas, oil, or water [employer] threatened to shut off services in your [...] Progress Notes * Marlene Ro MA - 02/10/2025 2:35 PM EDT Images from the original note were not included. 02/10 Labs entered from [facility] documented in this encounter Plan of Treatment Not on file documented as of this encounter Procedures Procedure Name Priority Date/Time Associated Diagnosis Comments PHATIDYLETHANOL (PETH) Routine 9:33 AM EDT URINE PROTEIN, TOTAL, RANDOM (W/O CREATININE) Routine 02/10/2025 9:33 AM EDT CYTOMEGALOVIRUS DNA, QUANT, RT PCR Routine 02/10/2025 9:33 AM EDT BK VIRUS QUANTITATIVE BY PCR, BLOOD Routine 02/10/2025 9:33 AM EDT HEPATIC FUNCTION PANEL Routine 9:33 AM EDT TACROLIMUS LEVEL Routine 02/10/2025 9:33 AM EDT CREATININE, URINE, RANDOM Routine 02/10/2025 9:33 AM EDT URINALYSIS W/RFL TO MICROSCOPIC Routine 02/10/2025 9:33 AM EDT CBC AND DIFFERENTIAL Routine 02/10/2025 9:33 AM EDT MAGNESIUM Routine 02/10/2025 9:33 AM EDT RENAL FUNCTION PANEL W/O EGFR Routine 02/10/2025 9:33 AM EDT documented in this encounter Results * Phatidylethanol (PEth) (02/10/2025 9:33 AM EDT) Phosphatidylethanol (PEth) Positive 288 Whole Blood Result [facility] MD LAB BLOOD ORDERABLES Denisse l Result * BK Virus Quantitative by PCR, Blood (02/10/2025 9:33 AM EDT) [facility] BK Virus Quant PCR PL Negative Plasma Result [facility] MD LAB BLOOD ORDERABLES Denisse l Result * Tacrolimus level (02/10/2025 9:33 AM EDT) [facility] Tacrolimus Lvl 12.5 6 - 15 ng/mL Whole Blood Result [facility] MD LAB BLOOD ORDERABLES Denisse l Result * Cytomegalovirus DNA, Quant, RT PCR (02/10/2025 9:33 AM EDT) [facility] CMV Quant DNA PCR (Plasma) Negative Plasma Result [facility] MD LAB BLOOD ORDERABLES Denisse l Result * (ABNORMAL) Magnesium (02/10/2025 9:33 AM EDT) [facility] Magnesium 1.4(A) 1.6 - 2.4 mg/dL Plasma Narrative Resulting Agency Comment [facility] Result [facility] MD LAB BLOOD ORDERABLES Denisse l Result * (ABNORMAL) Renal Function Panel w/o EGFR (02/10/2025 9:33 AM EDT) [facility] Glucose 101 BUN 15 CO2 26(A) 13 - 22 mmol/L Creatinine 0.90 Potassium 4.1 Sodium 141 Chloride 102 Phosphorus 4.8 2.5 - 4.9 mg/dL Calcium 9.4 EGFR 93 mg/dL Albumin 4.7 3.5 - 5.0 g/dL Blood Narrative Resulting Agency Comment [facility] Result [facility] LAB BLOOD ORDERABLES Denisse l Result * Creatinine, urine, random (02/10/2025 9:33 AM EDT) Creatinine, Urine 62 Urine Narrative Resulting Agency Comment [facility] Result [facility] Provider URINE ORDERABLES Final Re sult * Urinalysis w/Rfl to Microscopic (02/10/2025 9:33 AM EDT) Pathologist [facility] Glucose, UA Negative Negative Ketones, UA Negative Negative Blood, UA Negative Negative Bilirubin, UA Negative Negative Urobilinogen, UA Normal Normal Protein, UA Negative Negative pH, UA 6.0 4.5 - 8.0 Specific [place], UA 1.020 1.005 - 1.030 Clarity, UA Clear Clear Color, UA Yellow Light Yellow, Yellow Urine Narrative Resulting Agency Comment [facility] Result [facility] Provider URINE ORDERABLES Final Re sult * (ABNORMAL) CBC and differential (02/10/2025 9:33 AM EDT) Hemoglobin 13.1(A) 13.5 - 17.5 g/dL Hematocrit 38.6(A) 41 - 53 % RDW 13.5 11.5 - 14.5 % Lymphocytes Absolute 1.5 / L Monocytes Absolute 0.7 / L Eosinophils Absolute 0.1 / L Basophils Absolute 0.1 / L Neutrophils Relative 48.8 46 - 78 % Lymphocytes Relative 32.0 18 - 52 % Monocytes Relative 14.3(A) 3 - 10 % Eosinophils Relative 1.9 0 - 6 % Basophils Relative 1.3 0 - 3 % Neutrophils Absolute 2.3 / L MCH 32.2 26.0 - 34.0 pg MCHC 33.9 30 - 37 g/dL MCV 94.8 82.0 - 108.0 fL Platelets 169 K/ L RBC 4.07(A) 4.50 - 5.90 10^6/ L WBC 4.6 10^3/mL Blood Narrative Resulting Agency Comment [facility] Result [facility] Provider LAB BLOOD ORDERABLES Denisse l Result * Urine Protein, Tot, Random (w/o Creat) (02/10/2025 9:33 AM EDT) Total Protein, Ur 13.0 Urine Narrative Resulting Agency Comment [facility] Provider URINE ORDERABLES Final Re sult * Hepatic Function Panel (02/10/2025 9:33 AM EDT) Bilirubin, Direct 0.4 Bilirubin, Indirect 0.4 Alkaline Phosphatase 74 ALT 16 AST 25 Total Bilirubin 0.7 Total Protein 6.7 Plasma Narrative Resulting Agency Comment [facility] Result [facility] Provider LAB BLOOD ORDERABLES Denisse l Result documented in this encounter Visit Diagnoses Not on filedocumented in this encounter Additional Health Concerns Infection Onset Date Last Indicated Resolved Time C. difficile 01/28/2025 01/28/2025 Assessment Noted Time PHQ-9 Depression Total Score: 2 12/11/19 25 9:00 AM EDT documented as of this encounter Care Teams Pot Room Supervisor Relationship Specialty Start Date End Date Enedina Mcguire NP [address] [place] [address] PCP - General Internal Medicine 10/05/24 Maureen Pantoja, RN Txp Post Coordinator Transplant Hepatology 10/28/24 documented as of this encounter
--- OUTSIDE RECORDS SUMMARY | 2025-02-24 13:03 | XMS_ITS | Encounter Summary ---
Author Organization [facility] Address [address] [place] [address] Care Team Providers Care Personal Banking Representative Name Role Phone Enedina Mcguire NP Primary Care Provider + [phone] Maureen Pantoja RN Unavailable Unavail able Source [...] release of HIV test results or diagnoses. [id number] Health Encounter Details Date Type Department Care Team (Late st Contact Info) Description 02/09/2025 Chart Note [facility] Liver Transplant at [address] [place] [phone] Marisela [place] MA Social History Tobacco Use [...] Recorded In the past 12 months has [employer], gas, oil, or water [employer] threatened to shut off services in your [...] in a care home (including now)? No 01/28/2025 Yearly Questionnaire [...] as of this encounter Care Teams Personal Banking Representative Relationship Specialty Start Date End Date Enedina Mcguire NP [address] [place] [address] PCP - General Internal Medicine 10/05/24 Maureen Pantoja, ЮЛИЯ Txp Post Coordinator Transplant Hepatology 10/28/24 documented as of this encounter
--- OUTSIDE RECORDS SUMMARY | 2025-02-24 13:03 | XMS_ITS | Encounter Summary ---
Author Organization [employer] ([place], [place], [place], [place]) Address [address] [place] [address] Care Team Providers Care Information Technology Officer Name Role Phone Unavailable Primary Care Provider Carmen e Encounter Details Date Type Department Care Team (Late st Contact Info) Description 06/03/2018 Transcribed Document [facility] [address] [place] [address] ProviderEbenezer MD [address] [place] [address] Social History Tobacco Use Types [...] - Historical ProviderMD - 06/03/2018 3:04 PM CUSTOMER ACCOUNT TECHNICIAN [address] [place] [address] Patient Information Name: JULIEN ZELAYA [...] [address] [place] [address] [place] [address] [employer] (1) Within 2 to 3 days Patient [...] off of the skin. General Instructions??? Take paxg-[id number] and prescription medicines only as told by [...] 04/30/2006 Document Revised: 09/29/2016 Document Reviewed: 04/26/2015 [employer] Patient Education ? 2017 [employer] Allergies: No Known Medication Allergies Medication [...] verify that JULIEN ZELAYA was seen at [facility] on ,06/03/2018 15:04:17. This is [...] Assistance with quitting is available by contacting 5-550-ZRNW-NOW. This is a free resource providing counseling, [...] Electronic Communications Privacy Act 18 U.S.C. ???Sections 9746-9368,?? and contain information intended for the specified [...] sure to sign up for the My [facility] patient portal, which gives you 04/12 access to your medical information ??? including these discharge instructions ??? using your computer, smartphone, or tablet. Just go to [facility]mentCity to get started. Questions? Call . Acknowledgment [...]
--- OUTSIDE RECORDS SUMMARY | 2025-02-24 13:03 | XMS_ITS | Encounter Summary ---
Author Organization [facility] Address [address] [place] [address] Care Team Providers Care Tile Helper Name Role Phone Enedina Mcguire NP Primary Care Provider [phone] Maureen Pantoja RN Unavailable Unavail able Source [...] release of HIV test results or diagnoses. [id number] Reason for Visit * Reason Comments Results Encounter Details Date Type Department Care Team (Riky st Contact Info) Description 02/03/2025 Telephone [facility] Liver Transplant at [address] [phone] Mitzy Gill MA Results Social History Tobacco Use Types Packs/Day Years Used Date Smoking Tobacco: Former Cigarettes Smokeless Tobacco: Current Alcohol Use Standard Drinks/Week Comments Yes 0 (1 standard drink = 0.6 oz pure alcohol) History of alcohol abuse, reports no use in 3 week- typically endorses use as 4 glasses of wine a days Utilities Answer Date Recorded In the past 12 months has [employer], gas, oil, or water company threatened [...] Progress Notes * Maureen Pantoja RN - 02/03/2025 3:45 PM EDT Patient ended up being admitted to [facility] (01/27/25-01/30/25) after these tests were ordered but beforehe went to his local lab. Patient tested positive for C.diff at [facility] on 01/28/25. He is currently on Dificid 200 mg BID until 02/06/25. Patient tested negative for Norovirus at [facility] on 01/27/25. Patient's MMF is currently on hold. Will route results to [facility] Provider for further review. * Mitzy Gill MA - 02/03/2025 3:23 PM EDT Armida from [facility] called to report critical value for Pt's diarrhea panel. Positive for C Diff and Norovirus 02/03/25 Results are being faxed to our office and will be entered on receipt. documented in this encounter Miscellaneous Notes * Telephone Encounter - Maureen Pantoja RN - 02/03/2025 4:55 PM EDT Reviewed by Dr. Sanchez. Patient already on treatment for C.diff. Nothing to do at this time. documented in this encounter Plan of Treatment Not on file documented as of this encounter Visit Diagnoses Not on filedocumented in this encounter Additional Health Concerns Infection Onset Date Last Indicated Resolved Time C. difficile 01/28/2025 01/28/2025 Assessment Noted Time PHQ-9 Depression Total Score: 2 12/11/19 25 9:00 AM EDT documented as of this encounter Care Teams Tile Helper Relationship Specialty Start Date End Date Enedina Mcguire NP [address] [place] [address] PCP - General Internal Medicine 10/05/24 Maureen Pantoja, RN Txp Post Coordinator Transplant Hepatology 10/28/24 documented as of this encounter
--- OUTSIDE RECORDS SUMMARY | 2025-02-24 13:03 | XMS_ITS ---
Author Organization [facility] Address [address] [place] [address] Care Team Providers Care Watcher Lookout Tower Name Role Phone Enedina Mcguire NP Primary Care Provider + [phone] Maureen Pantoja RN Unavailable Unavail able Transplant Episode Liver Recipient [facility] ([place], [place]) [facility] Organ Received: Liver Transplanted on 10/26/2024 Marked as Active Follow-up on 10/26/2024 Liver CoordinatorMaureen Patnoja RN Phone: N/A Fax: N/A Email: N/A Jamul Organ Diagnosis Organ Primary Contributory Liver Alcohol-Associated [...] N/A N/A Chris Orosco MD Referring Physician [phone] N/A Maureen Leeanna Pantoja, RN Txp Post Coordinator N/A N/A N/A NUBIA Barros Txp Freight Solicitor N/A N/A N/A Harvey Domínguez III, MD Txp Surgeon [phone] N/A Mary Butler RN Txp Pre Coordinator N/A N/A N/A Events Post-Transplant Pre-Transplant Admitted: 10/25/2024 Referred: 08/13/2024 Transplanted: 10/26/2024 Evaluation began: Discharged: 11/02/2024 Committee: 10/14/2024 Center waitlisted: Pending Checklist Tasks (Due on or before 03/27/2025) Name Due Date Attached Appoint ment Social Work Consult 01/05/2025 Appointments (01/25/2025 - 03/27/2025) When With Visit Type Description 02/12/2025 Txp Hep - Ana Luisa, A Established Patient Liver transplant recipient ([facility]) (Primary Dx); History of systemic steroid therapy; Kidney transplant recipient; Immunosuppressive management encounter following liver transplant ([facility]); Encounter for monitoring tacrolimus therapy; Vitamin D deficiency; Encounter for therapeutic drug monitoring; S/P liver transplant ([facility]); Hypomagnesemia; Hypertension, unspecified type; Gastroesophageal reflux disease, unspecified whether esophagitis present; Alcohol use disorder; Immunosuppression ([facility]); Viral disease exposure
--- OUTSIDE RECORDS SUMMARY | 2025-02-24 13:03 | XMS_ITS | Encounter Summary ---
Author Organization [employer] ([place], [place], [place], [place]) Address [address] [place] [address] Care Team Providers Care Certified Indoor Environmentalist Name Role Phone Unavailable Primary Care Provider Unavailabl e Encounter Details Date Type Department Care Team (Late st Contact Info) Description 06/03/2018 Transcribed Document [facility] [address] [place] [address] ProviderEbenezer MD [address] [place] [address] Social History Tobacco Use Types [...] - Historical ProviderMD - 06/03/2018 12:08 PM MACHINE FEATHEREDGER AND REDUCER ED Triage Entered On: 06/03/2018 12:17 EST Performed On: 06/03/2018 12:12 EST by KANU VELEZ RN ED Triage Across the Room Triage Date/Time : 06/03/2018 12:12 EST Chief Complaint : lacerations to rt index and left middle finger s/p picking up a glass that shattered well logging captain. lacerations noted with bleeding controlled KANU [...] 12:17:41 EST) Problems(Active) HTN (hypertension) (SNOMED CT :7017889795 ) Name of Problem: HTN (hypertension) ; Recorder: KANU VELEZ RN; Confirmation: Confirmed ; Classification: Medical ; Code: [id number] ; Contributor System: Experenti ; Last Updated: 06/03/2018 12:14 EST ; Life Cycle Date: 06/03/2018 ; Life Cycle Status: Active ; Vocabulary: SNOMED CT Diagnoses(Active) Finger laceration Date: 06/03/2018 ; Diagnosis Type: Reason For Visit ; Confirmation: Complaint of ; Clinical Dx: Finger laceration ; Classification: Medical ; Clinical Service: Emergency medicine ; Code: PNED ; Probability: 0 ; Diagnosis Code: [id number] ED Height and Weight Height Source : Stated Height Entry Format : [place] Height, Feet : 6 ft(Converted to: 183 cm, 72 Inch) Height, Inches : 4 Inch(Converted to: 0 ft 4 Inch, 10.16 cm) Clinical Height : 193.04 cm Weight Source, ED : Standing scale Weight Entry Format : [place] Weight, Pounds : 265 lb Clinical Dosing Weight : 120.45 kg Body Surface Area (BSA) : 2.5 m2 Body Mass Index : 32.3 kg/m2 ([place]) [place] Body Weight (IBW) : 85.74 kg KANU [...] Electronically signed by Luis Eduardo Ochoa Conversion Metal Room Dental Technician Cerner at 08/29/2022 6:36 PM CDT documented in this encounter Plan of Treatment Not on file documented as of this encounter Visit Diagnoses Not on filedocumented in this encounter
--- OUTSIDE RECORDS SUMMARY | 2025-02-24 13:03 | XMS_ITS | Encounter Summary ---
Author Organization [facility] Address [address] [place] [address] Care Team Providers Care Net Lead Architect Name Role Phone Enedina Mcguire NP Primary Care Provider + [phone] Maureen Pantoja RN Unavailable Unavail able Source [...] release of HIV test results or diagnoses. [id number] Reason for Visit * Reason Comments Results Encounter Details Date Type Department Care Team (Riky st Contact Info) Description 02/12/2025 Telephone [facility] Liver Transplant at [address] [phone] Maureen Pantoja, RN Results Social [...] Recorded In the past 12 months has [employer], gas, oil, or water company threatened to [...] in a long term (including now)? No 01/28/2025 Yearly Questionnaire Answer [...] Progress Notes * Maureen Pantoja RN - 02/19/2025 10:33 AM EDT FK 12.5 Received additional lab results from this week. Will review and forward to Txp Provider. * Maureen Pantoja RN - 02/12/2025 7:16 AM EDT Lab results from 02/10/25 reviewed. Renal panel stable. LFTs remain stable. Alk phos 74, AST/ALT . FK pending. Patient has Liver Txp clinic visit today. Txp Provider will review and make any necessary changes during visit. RN Txp Coordinator will follow-up on pending FK result. documented in this encounter Plan of Treatment Not on file documented as of this encounter Visit Diagnoses Not on filedocumented in this encounter Additional Health Concerns Infection Onset Date Last Indicated Resolved Time C. difficile 01/28/2025 01/28/2025 Assessment Noted Time PHQ-9 Depression Total Score: 2 12/11/19 9:00 AM EDT documented as of this encounter Care Teams Net Lead Architect Relationship Specialty Start Date End Date Enedina Mcguire NP [address] [place] [address] PCP - General Internal Medicine 10/05/24 Maureen Pantoja, ЮЛИЯ Txp Post Coordinator Transplant Hepatology 10/28/24 documented as of this encounter
--- OUTSIDE RECORDS SUMMARY | 2025-02-24 13:03 | XMS_ITS | Clinical Summary ---
Author Organization [employer] ([place], [place], [place], [place]) Address [address] [place] [address] Care Team Providers Care Phosphoric Acid Supervisor Name Role Phone Unavailable Primary Care [...]
--- OUTSIDE RECORDS SUMMARY | 2025-02-24 13:03 | XMS_ITS | Encounter Summary ---
Author Organization [facility] Address [address] [place] [address] Care Team Providers Care Activities Director Scouting Name Role Phone Enedina Mcguire NP Primary Care Provider + [phone] Maureen Pantoja RN Unavailable Unavail able Source [...] release of HIV test results or diagnoses. [id number] Health Encounter Details Date Type Department Care Team (Late st Contact Info) Description 12/31/2024 Chart Note [facility] Liver Transplant at [address] [place] [phone] Marlene Ro MA 12/31 Labs entered from [facility] Social History Tobacco Use Types Packs/Day Years Used Date Smoking Tobacco: Former Cigarettes Smokeless Tobacco: Current Alcohol Use Standard Drinks/Week Comments Yes 0 (1 standard drink = 0.6 oz pure alcohol) History of alcohol abuse, reports no use in 3 week- typically endorses use as 4 glasses of wine a days Utilities Answer Date Recorded In the past 12 months has [employer], gas, oil, or water [employer] threatened to shut off services in your [...] 11:59 AM EDT 12/31 Labs entered from [facility] documented in this encounter Plan [...] PCR PL Negative Plasma Result [facility] LAB BLOOD ORDERABLES Denisse l Result * (ABNORMAL) Magnesium (12/31/2024 9:41 AM EDT) Magnesium 1.2(A) 1.6 - 2.4 mg/dL Plasma Narrative Resulting Agency Comment [facility] Result [facility] LAB BLOOD ORDERABLES Denisse l Result * Hepatic Function Panel (12/31/2024 9:41 AM EDT) Bilirubin, Direct 0.1 Bilirubin, Indirect 0.4 Alkaline Phosphatase 66 ALT 14 AST 22 Total Bilirubin 0.5 Total Protein 6.4 Plasma Narrative Resulting Agency Comment [facility] Result [facility] LAB BLOOD ORDERABLES Denisse l Result * (ABNORMAL) Renal Function Panel w/o EGFR (12/31/2024 9:41 AM EDT) Glucose 91 BUN 18 CO2 26(A) 13 - 22 mmol/L Creatinine 0.90 Potassium 4.2 Sodium 141 Chloride 105 Phosphorus 4.8 2.5 - 4.9 mg/dL Calcium 9.5 EGFR 113 mg/dL Albumin 4.5 3.5 - 5.0 g/dL Blood Narrative Resulting Agency Comment [facility] Result [facility] LAB BLOOD ORDERABLES Denisse l Result * Creatinine, urine, random (12/31/2024 9:41 AM EDT) Creatinine, Urine 57 Urine Narrative Resulting Agency Comment [facility] Provider Result Type Result [facility] URINE ORDERABLES Final Re sult * Urinalysis w/Rfl to Microscopic (12/31/2024 9:41 AM EDT) Glucose, UA Negative Negative Ketones, UA Negative Negative Blood, UA Negative Negative Bilirubin, UA Negative Negative Urobilinogen, UA Normal Normal Protein, UA Negative Negative pH, UA 5.5 4.5 - 8.0 Specific Terry, UA 1.025 1.005 - 1.030 Clarity, UA Clear Clear Color, UA Yellow Light Yellow, Yellow Urine Narrative Resulting Agency Comment [facility] Provider URINE ORDERABLES Final Re sult [...] 3.0 10^3/mL Blood Narrative Resulting Agency Comment [facility] Result [facility] Provider LAB BLOOD ORDERABLES Denisse l Result * Urine Protein, Tot, Random (w/o Creat) (12/31/2024 9:41 AM EDT) Total Protein, Ur 17.0 Urine Narrative Resulting Agency Comment [facility] Result [facility] Historical Provider URINE ORDERABLES Final Re sult documented in this encounter Visit Diagnoses Not on filedocumented in this encounter Additional Health Concerns Infection Onset Date Last Indicated Resolved Time 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
--- OUTSIDE RECORDS SUMMARY | 2025-02-24 13:03 | XMS_ITS | Encounter Summary ---
Author Organization [employer] ([place], [place], [place], [place]) Address [address] [place] [address] Care Team Providers Care Quill Skinner Name Role Phone Unavailable Primary Care Provider Unavailabl e Encounter Details Date Type Department Care Team (Late st Contact Info) Description 06/03/2018 Transcribed Document [facility] [place] Family Medicine [address] [place] [address] ProviderEbenezer MD [address] [place] [address] Social History Tobacco Use Types [...] - Historical ProviderMD - 06/03/2018 3:04 PM WALLBOARD WORKER [place] [address] [address] [facility] [place] [address] PERSON INFORMATION Name JULIEN ZELAYA Age 33 Years 1985 Sex Male Language Kiswahili PCP SALLY EVERETT (REF) T Marital Status Single Med Service Emergency Medicine Acct# Arrival 06/03/2018 12:08:00 Visit Reason Finger laceration; CUT FINGERS Acuity 3 - Urgent LOS 000 02:56 Depart Date: 06/03/18 03:04 PM Address: [address] [facility] [phone] Comment: PROVIDER INFORMATION Provider Role Assigned Unassigned Lizeth Almeida, COMMUNITY HEALTH OUTREACH WORKER Nurse 06/03/2018 12:39:09 DOMINIQUE BREWER PA-C ED [...] PURI # [address]C [address] [place], [place] [id number] [employer] Within 2 to 3 days Comment: documented in this encounter Plan of Treatment Not on file documented as of this encounter Visit Diagnoses Not on filedocumented in this encounter
--- OUTSIDE RECORDS SUMMARY | 2025-02-24 13:03 | XMS_ITS | Referral Summary ---
Author Organization [employer] ([place], [place], [place], [place]) Address [address] [place] [address] Care Team Providers Care Cushion Installer Name Role Phone Unavailable Primary Care [...]
--- OUTSIDE RECORDS SUMMARY | 2025-02-24 13:03 | XMS_ITS | Encounter Summary ---
Author Organization [facility] Address [address] [place] [address] Care Team Providers Care Dry Kiln Operator Name Role Phone Enedina Mcguire NP Primary Care Provider + [phone] Maureen Pantoja RN Unavailable Unavail able Source [...] release of HIV test results or diagnoses. [id number] Health Encounter Details Date Type Department Care Team (Late st Contact Info) Description 02/12/2025 Social Work [facility] Liver Transplant at [address] [place] [phone] Kaylin Willard MSW Social History Tobacco Use [...] Recorded In the past 12 months has [employer], gas, oil, or water [employer] threatened to shut off services in [...] encounter Progress Notes * NUBIA Barros - 02/12/2025 3:03 PM EDT Social Work Outpatient Note- Liver Transplant Patient is status post SLK transplant on 10/27/2024. SW met with Patient during Post Liver Transplant Clinic. Patient reports feeling much better since his hospitalization and was hopeful to return to work in the next month. He adds that returning to work would be helpful for his routine and help address boredom. Patient endorses continued alcohol use at ~3 glasses of wine several times a week and admits these glasses are heavy pours (~6 glasses of wine). He reports being interested in stopping alcohol use but feels it is helpful for back/neck pain management. He is scheduled to complete an injection at his pain clinic on 02/19 to address his pain and is hopeful that once addressed he would be able to stop all alcohol use. Patient continues to engage in CD treatment through [facility] and meets with his counselor 1x a week and attends AA meetings several times a week. He reports having a sponsor that he engages with as well. SW encouraged patient to consider inpatient treatment as a higher level of care, patient declined at this time. SW discussed concerns for medical consequences with continued alcohol use, patient was understanding. Patient has also started to use THC packets in his water at night and reports it helps with sleep. SW reviewed considerations for marijuana use and transplant. NUBIA Barros, FOUNDER AND CHIEF TECHNICAL OFFICER Transplant Mill Tender documented in this encounter Plan of Treatment Not on file documented as of this encounter Visit Diagnoses Not on filedocumented in this encounter Additional Health Concerns Infection Onset Date Last Indicated Resolved Time C. difficile 01/28/2025 01/28/2025 Assessment Noted Time PHQ-9 Depression Total Score: 2 12/11/19 25 9:00 AM EDT documented as of this encounter Care Teams Dry Kiln Operator Relationship Specialty Start Date End Date Enedina Mcguire NP [address] [place] [address] PCP - General Internal Medicine 10/05/24 Maureen Pantoja, RN Txp Post Coordinator Transplant Hepatology 10/28/24 documented as of this encounter
--- OUTSIDE RECORDS SUMMARY | 2025-02-24 13:03 | XMS_ITS | Encounter Summary ---
Author Organization [employer] ([place], [place], [place], [place]) Address [address] [place] [address] Care Team Providers Care Field Services Director Name Role Phone Unavailable Primary Care Provider Unavaillia e Encounter Details Date Type Department Care Team (Late st Contact Info) Description 06/03/2018 Transcribed Document [facility] [place] [address] [place] [address] ProviderEbenezer MD [address] [place], [place] [id number] Social History Tobacco Use Types Packs/Day Years [...] - Historical ProviderMD - 06/03/2018 1:05 PM WINDOW SYSTEMS ADMINISTRATOR Patient: JULIEN ZELAYA Age: 33 years 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 [...] EST Height Source Stated Height Entry Format Knott Height/Length, [place] (ft) 6 ft Height/Length [place] 4 Inch CLINICALHEIGHT 193.04 cm [place] Body Weight 85.74 kg Weight Source, ED Standing scale Weight Entry Format Knott Weight Turkish lb 265 lb CLINICALWEIGHT 120.45 kg Body [...] 14:22 EST, Discharge to: Home. Prescriptions: Prescription [facility]: Keflex 500 mg oral capsule (Prescribe): [...]
--- OUTSIDE RECORDS SUMMARY | 2025-02-24 13:03 | XMS_ITS ---
Author Organization [facility] Address [address] [place] [address] Care Team Providers Care Lithographic Etcher Name Role Phone Enedina Mcguire NP Primary Care Provider [phone] Maureen Pantoja RN Unavailable Unavail able Transplant Episode Kidney Recipient [facility] ([place], [place]) [facility] Organ Received: Left Kidney Transplanted on 10/27/2024 Marked as Active Follow-up on 10/27/2024 Kidney CoordinatorJosr Weber RN Phone: N/A Fax: N/A Email: N/A [place] Organ Diagnosis Organ Primary Contributory Kidney Hepatorenal [...] N/A N/A Flaquito Mayen MD Txp Surgeon [phone] N/A Bruno Gonzalez MD Txp Skip Tender [phone] N/A Yovanny Curran MD Referring Physician [phone] N/A Events Post-Transplant Pre-Transplant Admitted: 10/25/2024 Referred: 10/07/2024 Transplanted: 10/27/2024 Evaluation began: Discharged: 11/02/2024 Committee: 10/20/2024 Center waitlisted: 5
--- OUTSIDE RECORDS SUMMARY | 2025-02-24 13:03 | XMS_ITS | Encounter Summary ---
Author Organization [facility] Address [address] [place] [address] Care Team Providers Care Marine Pipefitter Name Role Phone Enedina Mcguire NP Primary Care Provider + [phone] Maureen Pantoja RN Unavailable Unavail able Source [...] release of HIV test results or diagnoses. [id number] Health Encounter Details Date Type Department Care Team (Late st Contact Info) Description 02/09/2025 Telephone [facility] Liver Transplant at [address] [place] [phone] Marsiela Martinez MA Social History Tobacco Use Types Packs/Day Years Used Date Smoking Tobacco: Former Cigarettes Smokeless Tobacco: Current Alcohol Use Standard Drinks/Week Comments Yes 0 (1 standard drink = 0.6 oz pure alcohol) History of alcohol abuse, reports no use in 3 week- typically endorses use as 4 glasses of wine a days Utilities Answer Date Recorded In the past 12 months has [employer], [employer], oil, or water [employer] threatened to shut off services in your [...] living in a usp (including now)? No 01/28/2025 Yearly Questionnaire Answer [...] resistant to Vancomycin. documented in this encounter Miscellaneous Notes * Telephone Encounter - Lizeth Walden RN - 02/12/2025 8:52 AM EDT Sent mc message to patient requesting repeat urine labs. documented in this encounter Plan of Treatment Not on file documented as of this encounter Visit Diagnoses Not on filedocumented in this encounter Additional Health Concerns Infection Onset Date Last Indicated Resolved Time C. difficile 01/28/2025 01/28/2025 Assessment Noted Time PHQ-9 Depression Total Score: 2 12/11/19 9:00 AM EDT documented as of this encounter Care Teams Marine Pipefitter Relationship Specialty Start Date End Date Enedina Mcguire NP [address] [place] [address] PCP - General Internal Medicine 10/05/24 Maureen Pantoja, ЮЛИЯ Txp Post Coordinator Transplant Hepatology 10/28/24 documented as of this encounter
--- OUTSIDE RECORDS SUMMARY | 2025-02-24 13:03 | XMS_ITS | Encounter Summary ---
Author Organization [employer] ([place], [place], [place], [place]) Address [address] [place] [address] Care Team Providers Care Faculty Member Name Role Phone Unavailable Primary Care Provider Unavailabl e Encounter Details Date Type Department Care Team (Late st Contact Info) Description 06/03/2018 Transcribed Document [facility] [place] Family Medicine [address] [place] [address] ProviderEbenezer MD [address] [place], [place] [id number] Social History Tobacco Use Types Packs/Day Years [...] - Historical ProviderMD - 06/03/2018 2:24 PM IRRIGATION SERVICE TECHNICIAN Electronically signed by Gabriela [facility] Conversion Health Sciences Manager Cerner at 08/29/2022 6:41 PM CDT documented in this encounter Plan of Treatment Not on file documented as of this encounter Visit Diagnoses Not on filedocumented in this encounter
--- OUTSIDE RECORDS SUMMARY | 2025-02-24 13:03 | XMS_ITS | Encounter Summary ---
Author Organization [employer] ([place], [place], [place], [place]) Address [address] [place] [address] Care Team Providers Care Poiser Name Role Phone Unavailable Primary Care Provider Unavailabl e Encounter Details Date Type Department Care Team (Late st Contact Info) Description 06/03/2018 Transcribed Document [facility] [place] Family Medicine [address] [place] [address] ProviderEbenezer MD [address] [place], [place] [id number] Social History Tobacco Use Types Packs/Day Years [...] - Historical ProviderMD - 06/03/2018 12:08 PM GAS BOOSTER ENGINEER ED Assessment Entered On: 06/03/2018 14:51 EST Performed On: 06/03/2018 13:50 EST by Lizeth Almeida, FRANCHISE BROKER Quick Look Assessment Level of Consciousness : Alert Affect/Behavior : Calm, Cooperative Orientation : Oriented x 4 Skin Color : Other: [place] Skin Temperature : Warm Skin Description : Dry Lizeth Almeida, RN - 06/03/2018 14:50 EST ED General-Functional Assess Communication Barrier : None Primary Language : Georgian Any Spiritual/Cultural Needs or Requests : No [...]
[2025-02-24 13:09] LABS: Microscopic, Urine URINE MICROSCOPIC (MICROSCOPIC)
[2025-02-24 13:27] LABS: Hematocrit 36.5 % (42.0-52.0); Hemoglobin 12.9 g/dL (14.1-18.0); Immature Granulocytes % 1.2 %; Mean Corpuscular HGB Conc 35.3 g/dL (31.8-35.4); Mean Corpuscular Hemoglobin 32.9 pg (27.0-31.2); Mean Corpuscular Volume 93.1 fl (80-94); Nucleated Red Blood Cells % 0 %; Platelet Count 101 K/mm3 (142-424); Red Blood Count 3.92 M/mm3 (4.60-6.20); Red Cell Distribution Width-SD 45.8 fL; White Blood Count 7.5 K/mm3 (4.8-10.8)
[2025-02-24 13:40] LABS: Bilirubin,Urine Negative (Negative); Color,Urine YELLOW (Yellow); Glucose,Urine (UA) Negative (Negative); Ketones,Urine Negative (Negative); Leukocyte Esterase,Urine Negative (Negative); PH,Urine 6.0 (5.0-8.5); Protein,Urine 1+ (Negative); Specific Gravity, Urine 1.020 (1.005-1.030); Urobilinogen,Urine 0.2 EU/dl (0.2)
[2025-02-24 13:56] LABS: Alanine Aminotransferase 52 U/L (12-78); Albumin Level 4.7 g/dl (3.5-5.0); Alkaline Phosphatase 184 U/L (38-126); Anion Gap 19.1 mEq/L (5-15); Aspartate Amino Transferase 71 U/L (17-59); Bilirubin,Direct 0.5 mg/dl (0.0-0.4); Bilirubin,Indirect 0.4 mg/dL (0.0-0.9); Bilirubin,Total 0.9 mg/dl (0.2-1.3); Bilirubin,Unconjugated 0.5 mg/dL (0.0-1.1); Blood Urea Nitrogen 18 mg/dl (9-20); Calcium 9.4 mg/dl (8.4-10.2); Carbon Dioxide 26 mmol/L (22.0-30.0); Chloride 99 mmol/L (98-107); Creatinine,Serum 1.00 mg/dl (0.66-1.25); Estimated Glomerular Filt Rate 82 ml/min (>60); GFR (African American) 100 ML/MIN (>60); Glucose 121 mg/dl (74-100); Magnesium 1.2 mg/dl (1.6-2.3); Phosphorous 4.6 mg/dl (2.5-4.5); Potassium 4.1 mmoL/L (3.5-5.1); Sodium 140 mmol/L (136-145); Total Protein,Serum 6.8 g/dl (6.3-8.2)
[2025-02-24 14:30] LABS: WBC,Urine Occasional #/hpf (0-3)
[2025-02-25 08:27] LABS: Cytomegalovirus (CMV) Ab, IgG 5.80 U/mL (0.00-0.59)
[2025-02-25 09:13] LABS: Cytomegalovirus (CMV) Ab, IgM <30.0 AU/mL (0.0-29.9)
== END 2025-02-24 23:59 | disposition home or self-care (01) ==
LOC: LAB 12:55
PROVIDERS: Registered Nurse; PCP Nurse Practitioner Family; Visit Provider Surgery
DX: D84.9 Immunodeficiency, unspecified (principal); F10.90 Alcohol use, unspecified, uncomplicated; Z94.4 Liver transplant status; Z94.0 Kidney transplant status; Z79.60 Long term (current) use of unspecified immunomodulators and immunosuppressants
CPT/HCPCS: 36415; 80069; 80076; 80197; 80321; 81001; 82570; 83735; 84156; 85025; 86644; 86645; 87086

== ENCOUNTER 2025-03-04 11:19 | Outpatient (CLI) | payer OTHER, SELFPAY ==
--- OUTSIDE RECORDS SUMMARY | 2024-09-02 14:40 | XMS_ITS | Encounter Summary ---
Author Organization [facility] Address [address] [place] [address] Care Team Providers Care Water Resources Program Director Name Role Phone Enedina Mcguire NP Primary Care Provider + [phone] Maureen Pantoja RN Unavailable Unavail able Source [...] release of HIV test results or diagnoses. [id number] Reason for Visit * Reason Comments Follow-up Bloating in PT stoma ch * Hospital Discharge Follow-Up (Routine) - Closed Specialty Diagnoses / Procedures Referred By Shane t Referred To Contact Hepatology Feliciano Freeman MD [address] [place] [address] Phone: tel: fax: Referral ID Status Reason Start Date Expiration Date Visits Re quested Visits Authorized [id number] Closed 07/29/2024 01/25/2025 1 1 Encounter Details Date Type Department Care Team (Latest Contact Info) Description 09/02/2024 2:40 PM EDT Office Visit [facility] at [facility] [address] [facility] [address] [place] [phone] Gerri Peterson MD [address] [place] [address] Cirrhosis of liver with ascites, [...] the past 12 months has th e [employer], oil, or water [employer] threatened to shut off services in your [...] any time in the past 12 m [facility], were you homeless or living in a intermediate (including now)? No 01/28/2025 Yearly Questionnaire Answer [...] Peterson MD - 09/02/2024 2:40 PM EDT [facility] NOTE Chief complaint: Post hospital [...] worsening ascites and had therapeutic paracentesis at [facility] with about a week prior to [...] will prefer to have LVP done at [facility]. Will print out paper order for [...] Chris Orosco MD, MPH Transplant hepatology Pager: [phone] documented in this encounter Plan of Treatment Not on file documented as of this encounter Results * (ABNORMAL) CBC (09/02/2024 5:00 PM EDT) WBC 10.4 3.8 - 10.8 10E3/uL 09/02/2024 7:42 PM EDT [facility] RBC 3.13(L) 4.20 - 5.80 10E6/uL 09/02/2024 7:42 PM EDT [facility] Hemoglobin 11.1(L) 13.2 - 17.1 g/dL 09/02/2024 7:42 PM EDT [facility] Hematocrit 30.7(L) 38.5 - 50.0 % 09/02/2024 7:42 PM EDT [facility] MCV 97.9 80.0 - 100.0 fL 09/02/2024 7:42 PM EDT [facility] MCH 35.3(H) 27.0 - 33.0 pg 09/02/2024 7:42 PM EDT [facility] MCHC 36.1(H) 32.0 - 36.0 g/dL 09/02/2024 7:42 PM EDT [facility] RDW 22.7(H) 11.0 - 15.0 % 09/02/2024 7:42 PM EDT [facility] Platelets 73(L) 140 - 400 10E3/uL 09/02/2024 7:42 PM EDT [facility] MPV 9.4 7.5 - 11.5 fL 09/02/2024 7:42 PM EDT [facility] Whole Blood 09/02/2024 5:00 PM EDT 09/02/2024 7:34 PM EDT us Gerri Peterson MD LAB BLOOD ORDERABLES Final Resu lt [facility] [address] documented in this encounter Visit Diagnoses [...] documented as of this encounter Care Teams Water Resources Program Director Relationship Specialty Start Date End Date Enedina Mcguire NP [address] [place] [address] PCP - General Internal Medicine 10/05/24 Maureen Pantoja, RN Txp Post Coordinator Transplant Hepatology 10/28/24 documented as of this encounter
--- OUTSIDE RECORDS SUMMARY | 2024-12-09 09:50 | XMS_ITS | Encounter Summary ---
Author Organization [facility] Address [address] [place] [address] Care Team Providers Care Interlibrary Loan Specialist Name Role Phone Enedina Mcguire NP Primary Care Provider + [phone] Maureen Pantoja RN Unavailable Unavail able Source [...] release of HIV test results or diagnoses. [id number] Health Encounter Details Date Type Department Care Team (Late st Contact Info) Description 12/09/2024 9:50 AM EDT Office Visit [facility] Liver Transplant at [place] [address] [address] [place] [address] Leisa Juarez MD [address] [place] [address] 2nd [place] [address] Kidney transplant recipient (Primary Dx); Immunosuppressive management encounter following liver transplant ([facility]); Hypomagnesemia; S/P liver transplant ([facility]); Hypertension, unspecified type; Hyperparathyroidism ([facility]) Social History Tobacco Use Types [...] liver (CMS-HCC) Esophageal varices (CMS-HCC) Hepatorenal syndrome ([facility]) Hypertension Other hyperlipidemia 07/26/2024 Renal cell carcinoma (CMS-HCC) Thrombocytopenia ([facility]) Thyroid disease Surgical History: Past [...] Low Risk (07/09/2024) Received from [facility] Overall Financial Resource Strain (CARDIA) Difficulty [...] No Physical Activity: Unknown (07/14/2024) Received from [facility] Exercise Vital Sign Days of Exercise per Week: Patient unable to answer Minutes of Exercise per Session: Not on file Stress: Patient Unable To Answer (07/14/2024) Received from [facility] [place] of Occupational Health - Occupational Stress Questionnaire Feeling of Stress : Patient unable to answer Social Connections: Patient Unable To Answer (07/14/2024) Received from [facility] Social Connection and Isolation Panel [NHANES] Frequency of Communication with Friends and Family: Patient unable to answer Frequency of Social Gatherings with Friends and Family: Patient unable to answer Attends Anabaptism Services: Patient unable to answer Active Member [...] times a day. naloxone (NARCAN) 4 mg/actuation [place] Apply 1 spray in one nostril if [...] Results Component Value Date PTH 36.0 10/25/2024 [id number] 7.1 (L) 10/08/2024 Hemoglobin A1C: Lab Results [...] Discussed with Dr. Juarez. Lauren Santos, SAMSON, CHILDRENS CLUB ATTENDANT, UNDERGROUND MINER- Transplant Nephrology [phone] Preferred contact: secure chat The HPI, ROS, [...] Primary Immunosuppressive management encounter following liver transplant ([facility]) Hypomagnesemia Disorders of magnesium metabolism S/P liver transplant ([facility]) Hypertension, unspecified type Hyperparathyroidism ([facility]) Hyperparathyroidism, unspecified documented in this encounter Additional Health Concerns Infection Onset Date Last Indicated Resolved Time 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
--- OUTSIDE RECORDS SUMMARY | 2024-12-09 11:45 | XMS_ITS | Encounter Summary ---
Author Organization [facility] Address [address] [place] [address] Care Team Providers Care Vocational Rehab Consultant Name Role Phone Enedina Mcguire NP Primary Care Provider + [phone] Maureen Pantoja RN Unavailable Unavail able Source [...] release of HIV test results or diagnoses. [id number] Health Encounter Details Date Type Department Care Team (Late st Contact Info) Description 12/09/2024 11:45 AM EDT Office Visit [facility] Psychiatry Transplant at [place] [address] [phone] Rebekah Linares, [address] [place] [address] Alcohol use disorder (Primary Dx) [...] Recorded In the past 12 months has [employer], gas, oil, or water [employer] threatened to shut off services in your [...] no psychomotor abnormalities Cognition: short term and exterminator helper termite memory intact Attitude: cooperative Affect: full range [...] documented as of this encounter Care Teams Vocational Rehab Consultant Relationship Specialty Start Date End Date Enedina Mcguire NP [address] [place] [address] PCP - General Internal Medicine 10/05/24 Maureen Pantoja, ЮЛИЯ Txp Post Coordinator Transplant Hepatology 10/28/24 documented as of this encounter
--- OUTSIDE RECORDS SUMMARY | 2025-01-06 08:20 | XMS_ITS | Encounter Summary ---
Author Organization [facility] Address [address] [place] [address] Care Team Providers Care Documentation Consultant Name Role Phone Enedina Mcguire NP Primary Care Provider + [phone] Maureen Pantoja RN Unavailable Unavail able Source [...] release of HIV test results or diagnoses. [id number] Reason for Visit * Reason Comments Liver Transplant Follow-up Encounter Details Date Type Department Care Team (Late st Contact Info) Description 01/06/2025 8:20 AM EDT Office Visit [facility] Liver Transplant at [address] [address] Cosmo Pacheco MD [address] [place] [address] Liver/[place]ney [place] [address] Mhaad Alonzo MD [facility] [place] [address] S/P liver transplant (CMS-HCC) (Primary [...] the past 12 months has th e [employer], gas, oil, or water company threatened to [...] patient continues close f/u w/ transplant yarn skeins examiner. - Bone health: Vit D level to be drawn ~POD#90. - Labs: Labs (CBC w/ diff, renal panel, liver panel, tacro level) weekly. Lipid panel, HgbA1C and Vit D level to be drawn at POD#90, HgbA1C and Vit D level to be drawn at POD#180. - Follow up: RTC 1 month Mahad Alonzo MD Transplant Surgery [phone] [1] Allergies Allergen Reactions Adhesive Itching and [...] Date End Date Enedina Mcguire NP [address] [place] [address] PCP - General Internal Medicine 10/05/24 Maureen Pantoja, ЮЛИЯ Txp Post Coordinator Transplant Hepatology 10/28/24 documented as of this encounter
--- OUTSIDE RECORDS SUMMARY | 2025-01-06 09:30 | XMS_ITS | Encounter Summary ---
Author Organization [facility] Address [facility] [place] [address] Care Team Providers Care Liberal Arts Teacher Name Role Phone Enedina Mcguire NP Primary Care Provider + [phone] Maureen Pantoja RN Unavailable Unavail able Source [...] release of HIV test results or diagnoses. [id number] Health Encounter Details Date Type Department Care Team (Late st Contact Info) Description 01/06/2025 9:30 AM EDT Office Visit [facility] Liver Transplant at [place] [address] [place] [address] Leisa Juarez MD [address] [place] [address] 2nd [place] [address] Kidney transplant recipient (Primary Dx); [...] liver (CMS-HCC) Esophageal varices (CMS-HCC) Hepatorenal syndrome ([facility]) Hypertension Other hyperlipidemia 07/26/2024 Renal cell [...] Low Risk (07/09/2024) Received from [facility] Overall Financial Resource Strain (CARDIA) Difficulty [...] Answer (07/14/2024) Received from [facility] [place] of Occupational Health - Occupational Stress Questionnaire [...] Results Component Value Date PTH 36.0 10/25/2024 [id number] 7.1 (L) 10/08/2024 Hemoglobin A1C: Lab Results [...] Discussed with Dr. Juarez. Lauren Santos, SAMSON, ASSISTANT COACH, LANE MARKER INSTALLER- Transplant Nephrology [phone] Preferred contact: secure chat The HPI, ROS, [...] and basic metabolic profile POD 74 from SLK. Back to drinking alcohol, 1-2 glasses of [...] documented as of this encounter Care Teams Liberal Arts Teacher Relationship Specialty Start Date End Date Enedina Mcguire NP [address] [place] [address] PCP - General Internal Medicine 10/05/24 Maureen Pantoja, ЮЛИЯ Txp Post Coordinator Transplant Hepatology 10/28/24 documented as of this encounter
--- OUTSIDE RECORDS SUMMARY | 2025-01-27 18:28 | XMS_ITS | Encounter Summary ---
Author Organization [facility] Address [address] [place] [address] Care Team Providers Care Applied Marine Physics Professor Name Role Phone Enedina Mcguire NP Primary Care Provider + [phone] Maureen Pantoja RN Unavailable Unavail able Source [...] release of HIV test results or diagnoses. [id number] Reason for Visit * Reason Comments Fever Immunocompromised 89F x1 day ago Diarrhea Headache * Auth/Cert (Routine) Specialty Diagnoses / Procedures Referred By Contac t Referred To Contact Transplant Diagnoses Diarrhea of presumed infectious origin [address] [place] [address] Phone: tel: Referral ID Status Reason Start Date Expiration Date Visits Re quested Visits Authorized [id number] 1 1 Encounter Details Date Type Department Care Team (Latest Contact Info) Description 01/27/2025 6:28 PM EDT - 01/30/2025 2:25 PM EDT Hospital Encounter [address] [place] [address] Sunny Wei MD [address] [address] Lydia Sanchez MD [address] [facility] [place] [address] Diarrhea of presumed infectious origin (Primary Dx); Immunosuppression ([facility]) Discharge Disposition: Home or Self Care [...] the past 12 months has th e [employer], gas, oil, or water [employer] threatened to shut off services in your [...] living in a jail (including now)? No 01/28/2025 Yearly Questionnaire Answer [...] Tian LSW - 01/30/2025 1:04 PM EDT [facility] Care Management Discharge Summary Patient name: [...] at Discharge: Abdiaziz Gilbert- Family Contact Number: [phone] Plan reviewed with MD and other members of the health care team: Yes Care Plan Completed: Yes No further CM/SW needs. This plan has been reviewed with the multi-disciplinary team. Treatment Preferences Treatment Preferences: Distance Post-Discharge Goals Patient's Post-Discharge goals: Get stronger at home. Post Acute Care Provider Information: Community Services at Discharge Community Services at Home post discharge: Not Applicable RONALDO Garner [phone] * Feliciano Gomez CNP - 01/30/2025 8:39 AM EDT [facility] Inpatient Discharge Summary Patient: Julien Gilbert Age: 39 y.o. [facility]: [id number] Date of Admission: 01/27/2025 Date of Discharge: 01/30/2025 Attending Physician: Lydia Sanchez MD Primary Care Physician: Enedina Mcguire NP Diagnoses Present on Admission Past Medical History: Diagnosis Date Alcoholic cirrhosis of liver (CMS-HCC) Esophageal varices ([facility]-H[facility]) Hepatorenal syndrome ([facility]) Hypertension Other hyperlipidemia 07/26/2024 Renal cell carcinoma ([facility]) Thrombocytopenia ([facility]) Thyroid disease Discharge Diagnoses There are [...] Your Medications These medications were sent to [facility] [address] [place] [id number] Hours: Sunday - Sunday: 8:00AM - 6:00PM [...] Instructions: Call post-kidney transplant clinic with questions [phone] or call [facility] at [phone] and ask for the kidney payroll coordinator production control clerk if you experience any of the following: [...] through Care Everywhere. * C. Diff Infection [id number] (Mauritanian) documented in this encounter Medications at Time of Discharge cyclobenzaprine (FLEXERIL) 5 MG tablet Take 1 tablet (5 mg total) by mouth 3 times a day. 90 tablet 01/30/2025 11:36 AM EDT 5 ergocalciferol (ERGOCALCIFEROL) 1,250 mcg (50,000 unit) capsuleIndications:E ncounter for therapeutic drug monitoring,S/P liver transplant ([facility]),Hypomagnes emia,Kidney transplant recipient,Hypertensi on, unspecified type,Gastroesophagea l [...] counter for therapeutic drug monitoring,S/P liver transplant ([facility]),Hypomagnes emia,Kidney transplant recipient,Hypertensi on, unspecified type,Gastroesophagea l [...] counter for therapeutic drug monitoring,S/P liver transplant ([facility]),Hypomagnes emia,Kidney transplant recipient,Hypertensi on, unspecified type,Gastroesophagea l [...] ncounter for therapeutic drug monitoring,S/P liver transplant ([facility]),Hypomagnes emia,Kidney transplant recipient,Hypertensi on, unspecified type,Gastroesophagea l [...] ncounter for therapeutic drug monitoring,S/P liver transplant ([facility]),Hypomagnes emia,Kidney transplant recipient,Hypertensi on, unspecified type,Gastroesophagea l [...] and treatment with this patient/family. Please page [phone] with any additional questions or concerns. Thank [...] Bisi Gonzalez MD 01/29/2025 9:15 AM Pager: [phone] * Feliciano Gomez CNP - 01/29/2025 8:12 [...] plan per attending physician Feliciano Gomez CNP ,PHOTOGRAPHIC EQUIPMENT INSPECTOR Transplant Surgery 01/29/2025 This note was completely [...] mL/hr (01/28/25 0011) PRN Meds: acetaminophen ASSESSMENT/PLAN Juline Gilbert is [...] plan per attending physician Feliciano Gomez CNP ,PHOTOGRAPHIC EQUIPMENT INSPECTOR Transplant Surgery 01/28/2025 Cosigned by Lydia Sanchez [...] Sevilla MD - 01/27/2025 7:19 PM EDT [facility] ED Note Date of Service: 01/27/2025 [...] Surgery History and Physical Patient: Julien Gilbert [facility]: [id number] History CC: neutropenic fevers, diarrhea HPI: Julien [...] liver (CMS-HCC) Esophageal varices (CMS-HCC) Hepatorenal syndrome ([facility]) Hypertension Other hyperlipidemia 07/26/2024 Renal cell [...] Answer (07/14/2024) Received from [facility] [employer] [place] [facility] Occupational Health - Occupational Stress Questionnaire [...] SQH Admit to floor SHELBY BLANCO MD [facility] General Surgery Cosigned by Lydia Sanchez [...] this encounter Consult Notes * NUBIA Tian, STRETCHER LEVELER OPERATOR - 01/28/2025 11:02 AM EDT [facility] Alcohol Audit Julien Gilbert [id number] 1985 Alcohol Level Alcohol Level obtained?: No [...] Lydia Sanchez MD Patient's Name: Julien Gilbert [facility]: [id number] Reason for Consult Antimicrobial Recommendations Assessment & [...] chicken or bird exposure. Remote cruise to [employer], but no recent international travel. Microbiology Blood [...] pain. Bisi Gonzalez MD Infectious Diseases Pager [phone] * Nahomi Hillman MSW, STRETCHER LEVELER OPERATOR - 01/28/2025 8:21 AM EDT HEALTH Care Management/Social Work Assessment Patient Information Patient Name: Julien Gilbert Hospital Day: 1 Inpatient/Observation: Inpatient Admit Date: 01/27/2025 Admission Diagnosis: Diarrhea of presumed infectious origin [R19.7] Attending provider: Lydia Sanchez MD PCP: Enedina Mcguire NP Home Pharmacy: [facility] [address] [place] [address] [place] [address] Clinic Pharmacy [facility], [facility] [address] [address] [address] [facility] [address] [address] Pertinent Medications Anticoagulation therapy: No New Diabetic: No Issues related to obtaining medications: none Payor Information Medical Insurance Coverage: Payor: [employer] / Plan: [employer] / Product Type: *No Product type* / Secondary Payor: [facility] Functional Assessment Functional Assessment Assessment Information Obtained [...] No Status & Connection to VA Services [place] Status & Connection to VA Services Are [...] Patient reported that he is not a [place]. Patient reported he is employed full- time. [...] or dialysis. Patient has no history of [place] [facility] [place] facility or inpatient rehabilitation facility admissions. Patient has no history of home health care services. Patient receives outpatient labs at his appointments. PCP: Enedina Mcguire SWCM confirmed with patient/family that there are no additional SWCM needs at this time. SW provided the family with SW contact [phone]. Patient/Family aware and taking part in the [...] are disclosed as appropriate. NUBIA TIAN, RONALDO [phone] documented in this encounter Nursing Notes * [...] and is agreeable. Receiving RN may call [phone] to consult ED RN with questions regarding [...] RN - 01/27/2025 7:07 PM EDT Bed: [facility] Expected date: Expected time: Means [...] Patient will remain free of falls Goal: Bryant Fall Precautions Outcome: Progressing Problem: Daily Care [...] Tian LSW - 01/29/2025 11:45 AM EDT [facility] Case Management/Social Work [...] disease. PCP: Enedina Mcguire NP Home Pharmacy: [facility] - [place], [place] - [address] [facility] [address] [facility] - [place], [place] - [address] [facility] [address] [facility] [address] [facility] [address] [place] [address] Medical Insurance Coverage: Payor: [facility] / Plan: [facility] / Product Type: *No Product type* / Other Pertinent Information SWCM attended multidisciplinary rounds with the Transplant Team. SWCM reviewed patient's chart. [facility], patient is not medically ready to discharge. Patient to receive CT scan. Patient goes outpatient for lab draws. Discharge Plan Anticipated discharge plan: Home w OP labs Anticipated discharge date: 01/30 CM/SW will continue to follow and remain available for discharge planning needs. NUBIA TIAN, RONALDO [phone] * Plan of Care - Vandana Vilchis [...] Patient will remain free of falls Goal: Bryant Fall Precautions Outcome: Progressing Problem: Daily Care [...] Patient will remain free of falls Goal: Bryant Fall Precautions Outcome: Progressing * ED Medical Screening Exam - NAA Dunn - 01/27/2025 6:36 PM EDT [facility] Emergency Care Provider Note MEDICAL SCREENING EXAM [...] Pending) There is a bed available in [facility] and the patient will be [...] Routine 9:30 PM EDT UPPER RESPIRATORY VIRAL/BACTERIAL PANEL-ENGINEERING DESIGN MANAGER ONLY Routine 01/27/2025 9:30 PM EDT LACTIC ACID, VENOUS BLOOD GAS STAT 01/27/2025 9:30 PM EDT HISTOPLASMA/BLASTOMYCES AG, EIA, U Routine 01/27/2025 8:44 PM EDT STREP PNEUMO-LEGIONELLA URINE ANTIGEN Routine 01/27/2025 8:44 PM EDT URINALYSIS, MICROSCOPIC STAT 01/28/20 8:44 PM EDT URINALYSIS-MACROSCOPIC W/REFLEX TO MICROSCOPIC STAT 01/27/2025 8:44 PM EDT HISTOPLASMA/BLASTOMYCES AG, EIA, S Routine 01/27/2025 8:20 PM EDT FUNGITELL [id number] Routine 01/28/20 25 8:20 PM EDT CRYPTOCOCCUS [...] - 80.0 % 01/30/2025 8:09 AM EDT [facility] Lymphocytes Relative 43.8 15.0 - 45.0 % 01/30/2025 8:09 AM EDT [facility] Monocytes Relative 14.2(H) 0.0 - 12.0 % 01/30/2025 8:09 AM EDT [facility] Eosinophils Relative 2.2 0.0 - 8.0 % 01/30/2025 8:09 AM EDT [facility] Basophils Relative 0.7 0.0 - 1.0 % 01/30/2025 8:09 AM EDT [facility] nRBC 0 0 - 0 /100 WBC 01/30/2025 8:09 AM EDT [facility] Neutrophils Absolute 782(L) 1,520 - 8,640 /uL 01/30/2025 8:09 AM EDT [facility] Lymphocytes Absolute 876 570 - 4,860 /uL 01/30/2025 8:09 AM EDT [facility] Monocytes Absolute 284 0 - 1,296 /uL 01/30/2025 8:09 AM EDT [facility] Eosinophils Absolute 44 0 - 864 /uL 01/30/2025 8:09 AM EDT [facility] Basophils Absolute 14 0 - 108 /uL 01/30/2025 8:09 AM EDT [facility] Whole Blood 01/30/2025 7:41 AM EDT 01/30/2025 8:01 AM EDT Feliciano Gomez [facility] BLOOD ORDERABLES Final Resu lt [facility] [address] [place] [address], [facility] * Tacrolimus level (01/30/2025 5:51 AM EDT) Tacrolimus (LC-MS) 6.5 3.0 - 15.0 ng/mL 01/30/2025 11:11 AM EDT [facility] Comment:Performed via liquid chromatography [...] Hill MD LAB BLOOD ORDERABLES Final Result [facility] [address] [facility] [place] [address], [facility] * (ABNORMAL) Renal Function Panel w/EGFR (01/30/2025 5:51 AM EDT) Sodium 139 133 - 146 mmol/L 01/30/2025 7:06 AM EDT [facility] Potassium 3.5 3.5 - 5.3 mmol/L 01/30/2025 7:06 AM EDT [facility] Chloride 105 98 - 110 mmol/L 01/30/2025 7:06 AM EDT [facility] CO2 26 21 - 33 mmol/L 01/30/2025 7:06 AM EDT [facility] Anion Gap 8 3 - 16 mmol/L 01/30/2025 7:06 AM EDT [facility] BUN 29(H) 7 - 25 mg/dL 01/30/2025 7:06 AM EDT [facility] Creatinine 1.14 0.60 - 1.30 mg/dL 01/30/2025 7:06 AM EDT [facility] Glucose 114(H) 70 - 100 mg/dL 01/30/2025 7:06 AM EDT [facility] Calcium 8.7 8.6 - 10.3 mg/dL 01/30/2025 7:06 AM EDT [facility] Phosphorus 5.1(H) 2.1 - 4.7 mg/dL 01/30/2025 7:06 AM EDT [facility] Albumin 4.1 3.5 - 5.7 g/dL 01/30/2025 7:06 AM EDT [facility] Osmolality, Calculated 295 278 - 305 mOsm/kg 01/30/2025 7:06 AM EDT [facility] EGFR 83 01/30/2025 7:06 AM EDT [facility] Comment:As of 2021, the [...] Hill MD LAB BLOOD ORDERABLES Final Result [facility] [address] [id number] * (ABNORMAL) Hepatic Function Panel (01/30/2025 5:51 AM EDT) Total Bilirubin 0.3 0.0 - 1.5 mg/dL 01/30/2025 7:06 AM EDT [facility] Bilirubin, Direct 0.05 0.00 - 0.40 mg/dL 01/30/2025 7:06 AM EDT [facility] AST 13 13 - 39 U/L 01/30/2025 7:06 AM EDT [facility] ALT 14 7 - 52 U/L 01/30/2025 7:06 AM EDT [facility] Alkaline Phosphatase 60 36 - 125 U/L 01/30/2025 7:06 AM EDT [facility] Total Protein 5.9(L) 6.4 - 8.9 g/dL 01/30/2025 7:06 AM EDT [facility] Albumin 4.1 3.5 - 5.7 g/dL 01/30/2025 7:06 AM EDT [facility] Bilirubin, Indirect 0.25 0.00 - 1.10 mg/dL 01/30/2025 7:06 AM EDT [facility] Plasma 01/30/2025 5:51 AM EDT 01/30/2025 6:31 AM EDT Carlton Hill MD LAB BLOOD ORDERABLES Final Result [facility] [address] * Magnesium (01/30/2025 5:51 AM EDT) Magnesium 1.7 1.5 - 2.5 mg/dL 01/30/2025 7:06 AM EDT [facility] Plasma 01/30/2025 5:51 AM EDT 01/30/2025 6:31 AM EDT Carlton Hill MD LAB BLOOD ORDERABLES Final Result [facility] [address] * (ABNORMAL) CBC (01/30/2025 5:51 AM EDT) WBC 2.1(L) 3.8 - 10.8 10E3/uL 01/30/2025 6:41 AM EDT [facility] RBC 3.41(L) 4.20 - 5.80 10E6/uL 01/30/2025 6:41 AM EDT [facility] Hemoglobin 11.2(L) 13.2 - 17.1 g/dL 01/30/2025 6:41 AM EDT [facility] Hematocrit 31.9(L) 38.5 - 50.0 % 01/30/2025 6:41 AM EDT [facility] MCV 93.7 80.0 - 100.0 fL 01/30/2025 6:41 AM EDT [facility] MCH 32.9 27.0 - 33.0 pg 01/30/2025 6:41 AM EDT [facility] MCHC 35.1 32.0 - 36.0 g/dL 01/30/2025 6:41 AM EDT [facility] RDW 14.8 11.0 - 15.0 % 01/30/2025 6:41 AM EDT [facility] Platelets 95(L) 140 - 400 10E3/uL 01/30/2025 6:41 AM EDT [facility] MPV 6.4(L) 7.5 - 11.5 fL 01/30/2025 6:41 AM EDT [facility] Whole Blood 01/30/2025 5:51 AM EDT 01/30/2025 6:33 AM EDT Carlton Hill MD LAB BLOOD ORDERABLES Final Result Performing Organization Address City/State/[facility] Co de Phone Number [facility] [address] * CT Neck With IV contrast [...] cavity, parapharyngeal space, and retropharyngeal space. Normal maintenance supervisor 2nd shift space, infratemporal fossa, and buccal space. Infrahyoid [...] oral cavity, parapharyngeal space, andretropharyngeal space. Normal maintenance supervisor 2nd shift space, infratemporal fossa, andbuccal space. Infrahyoid neck: [...] - 15.0 ng/mL 01/29/2025 9:10 AM EDT [facility] Comment:Performed via liquid chromatography [...] Hill MD LAB BLOOD ORDERABLES Final Result [facility] [address] [place] [address], [facility] * (ABNORMAL) Renal Function Panel w/EGFR (01/29/2025 5:55 AM EDT) Sodium 138 133 - 146 mmol/L 01/29/2025 7:13 AM EDT [facility] Potassium 3.9 3.5 - 5.3 mmol/L 01/29/2025 7:13 AM EDT [facility] Chloride 102 98 - 110 mmol/L 01/29/2025 7:13 AM EDT [facility] CO2 27 21 - 33 mmol/L 01/29/2025 7:13 AM EDT [facility] Anion Gap 9 3 - 16 mmol/L 01/29/2025 7:13 AM EDT [facility] BUN 23 7 - 25 mg/dL 01/29/2025 7:13 AM EDT [facility] Creatinine 1.39(H) 0.60 - 1.30 mg/dL 01/29/2025 7:13 AM EDT [facility] Glucose 108(H) 70 - 100 mg/dL 01/29/2025 7:13 AM EDT [facility] Calcium 9.6 8.6 - 10.3 mg/dL 01/29/2025 7:13 AM EDT [facility] Phosphorus 5.6(H) 2.1 - 4.7 mg/dL 01/29/2025 7:13 AM EDT [facility] Albumin 4.8 3.5 - 5.7 g/dL 01/29/2025 7:13 AM EDT [facility] Osmolality, Calculated 290 278 - 305 mOsm/kg 01/29/2025 7:13 AM EDT [facility] EGFR 65 01/29/2025 7:13 AM EDT [facility] Comment:As of 2021, the [...] Result Performing Organization Address [facility] Co de Phone Number [facility] [address] [facility] * Hepatic Function Panel (01/29/2025 5:55 AM EDT) Total Bilirubin 0.5 0.0 - 1.5 mg/dL 01/29/2025 7:13 AM EDT [facility] Bilirubin, Direct 0.08 0.00 - 0.40 mg/dL 01/29/2025 7:13 AM EDT [facility] AST 19 13 - 39 U/L 01/29/2025 7:13 AM EDT [facility] ALT 19 7 - 52 U/L 01/29/2025 7:13 AM EDT [facility] Alkaline Phosphatase 59 36 - 125 U/L 01/29/2025 7:13 AM EDT [facility] Total Protein 7.0 6.4 - 8.9 g/dL 01/29/2025 7:13 AM EDT [facility] Albumin 4.8 3.5 - 5.7 g/dL 01/29/2025 7:13 AM EDT [facility] Bilirubin, Indirect 0.42 0.00 - 1.10 mg/dL 01/29/2025 7:13 AM EDT [facility] Plasma 01/29/2025 5:55 AM EDT 01/29/2025 6:41 AM EDT Carlton Hill MD LAB BLOOD ORDERABLES Final Result [facility] [address] [employer] [facility]. [address] * Magnesium (01/29/2025 5:55 AM EDT) Magnesium 2.5 1.5 - 2.5 mg/dL 01/29/2025 7:13 AM EDT [facility] Plasma 01/29/2025 5:55 AM EDT 01/29/2025 6:41 AM EDT Carlton Hill MD LAB BLOOD ORDERABLES Final Result [facility] [address] * (ABNORMAL) CBC (01/29/2025 5:55 AM EDT) WBC 2.4(L) 3.8 - 10.8 10E3/uL 01/29/2025 6:53 AM EDT [facility] RBC 3.88(L) 4.20 - 5.80 10E6/uL 01/29/2025 6:53 AM EDT [facility] Hemoglobin 12.8(L) 13.2 - 17.1 g/dL 01/29/2025 6:53 AM EDT [facility] Hematocrit 36.6(L) 38.5 - 50.0 % 01/29/2025 6:53 AM EDT [facility] MCV 94.1 80.0 - 100.0 fL 01/29/2025 6:53 AM EDT [facility] MCH 32.9 27.0 - 33.0 pg 01/29/2025 6:53 AM EDT [facility] MCHC 34.9 32.0 - 36.0 g/dL 01/29/2025 6:53 AM EDT [facility] RDW 14.8 11.0 - 15.0 % 01/29/2025 6:53 AM EDT [facility] Platelets 119(L) 140 - 400 10E3/uL 01/29/2025 6:53 AM EDT [facility] MPV 6.2(L) 7.5 - 11.5 fL 01/29/2025 6:53 AM EDT [facility] Whole Blood 01/29/2025 5:55 AM EDT 01/29/2025 6:41 AM EDT Carlton Hill MD LAB BLOOD ORDERABLES Final Result [facility] [address] * Sed Rate (01/29/2025 5:55 AM EDT) Sed Rate 2 0 - 15 mm/hr 01/29/2025 7:03 AM EDT [facility] Whole Blood 01/29/2025 5:55 AM EDT 01/29/2025 6:41 AM EDT Feliciano Gomez [facility] BLOOD ORDERABLES Final Resu lt Performing Organization Address City/[facility] Co de Phone Number [facility] [address] * C-Reactive Protein (01/29/2025 5:55 AM EDT) Pathologist [facility] CRP 4.1 1.0 - 10.0 mg/L 01/29/2025 7:13 AM EDT [facility] Plasma 01/29/2025 5:55 AM EDT 01/29/2025 6:41 AM EDT Feliciano Gomez [facility] BLOOD ORDERABLES Final Resu lt Performing Organization Address [facility] de Phone Number [facility] [address] [facility] * Giardia Cryptosporidium Antigens (Feces) (01/28/2025 9:27 PM EDT) Pathologist [facility] Cryptosporidium Ag Negative Negative 2024 8:03 AM EDT [facility] Giardia Ag Negative Negative 01/29/2025 8:03 AM EDT [facility] Comment: Detection of Giardia and Cryptosporidium antigen is more sensitive and specific than microscopy. Because antigens are shed continuously, repeat testing is rarely warranted. Feces 01/28/2025 9:27 PM EDT 01/28/2025 10:07 PM EDT Comment:F Ruby Chiang MD MICROBIOLOGY - GENERAL ORDERAB LES Final Result Performing Organization Address City/[facility]/ZIP Co de Phone Number [facility] [address] * Ova and Parasite Comprehensive w/Giardia (Feces) (01/28/2025 9:27 PM EDT) [facility] O & P Method: Concentration and Trichrome Stain [facility] Results No Amoeba, Ova, Or Parasites Seen. -- O and P examination of additional specimens is recommended only for symptomatic patients, immunosuppressed patients or those with an appropriate travel history. [facility] Feces FECES / Unknown 01/28/2025 9 :27 PM EDT 01/28/2025 10:07 PM EDT Comment:F Ruby Chiang MD MICROBIOLOGY - GENERAL ORDERAB LES Final Result Performing Organization Address [facility]/ZIP Co de Phone Number [facility] [address] [facility] * Clostridium Difficile Toxin A/B Antigen (01/28/2025 1:21 PM EDT) [facility] CDIFF Tox AGN Negative Negative 01/28/2025 10:35 PM EDT [facility] Comment:C. difficile nucleic acid [...] ORDERABL ES Final Result Performing Organization Address City/[facility]/ZIP Co de Phone Number [facility] [address] [facility]. [address] * (ABNORMAL) Clostridium difficile DNA Amplification (01/28/2025 1:21 PM EDT) [facility] Clost. Diff DNA Amp. Positive( A) Negative 01/28/2025 11:22 PM EDT [facility] Comment:Positive indicates t oxigenic C. difficile was detected in the sample. Negative indicates that toxigenic C. difficile was not detected above the limit of the detection of the assay. The test methodology is a FDA approved DNA amplification assay. Stool, Liquid FECES / Unknown 01/28/2025 1:21 PM EDT 01/28/2025 1:48 PM EDT Comment:F Feliciano Garcia Jason [facility] BODY FLUIDS AND STOOLS ORDERABL ES Final Result Performing Organization Address City/State/[facility] Co de Phone Number [facility] [address] [place], [place] [address] * Phosphatidylethanol Confirmation, B (01/28/2025 7:14 [...] Drug Administration. Test Performed by: [facility] [address] [place] [address] Work Over Rig Operator: Kathy Ortiz Ph.D.; CLIA# [id number] Whole Blood 01/28/2025 7:14 AM EDT 01/30/2025 9:58 AM EDT Carlton Hill MD LAB BLOOD ORDERABLES Final Result Performing Organization Address [facility] Co de Phone Number [facility] [address] * (ABNORMAL) Tacrolimus level (01/28/2025 7:14 AM EDT) Pathologist [facility] Tacrolimus (LC-MS) 16.4(H) 3.0 - 15.0 ng/mL 01/28/2025 12:41 PM EDT [facility] Comment:Performed via liquid chromatography [...] Result Performing Organization Address [facility] Co de Phone Number [facility] [address] [facility]. [address] * Renal Function Panel w/EGFR (01/28/2025 7:14 AM EDT) Sodium 138 133 - 146 mmol/L 01/28/2025 9:00 AM EDT [facility] Potassium 3.7 3.5 - 5.3 mmol/L 01/28/2025 9:00 AM EDT [facility] Chloride 102 98 - 110 mmol/L 01/28/2025 9:00 AM EDT [facility] CO2 26 21 - 33 mmol/L 01/28/2025 9:00 AM EDT [facility] Anion Gap 10 3 - 16 mmol/L 01/28/2025 9:00 AM EDT [facility] BUN 17 7 - 25 mg/dL 01/28/2025 9:00 AM EDT [facility] Creatinine 1.14 0.60 - 1.30 mg/dL 01/28/2025 9:00 AM EDT [facility] Glucose 91 70 - 100 mg/dL 01/28/2025 9:00 AM EDT [facility] Calcium 9.3 8.6 - 10.3 mg/dL 01/28/2025 9:00 AM EDT [facility] Phosphorus 4.4 2.1 - 4.7 mg/dL 01/28/2025 9:00 AM EDT [facility] Albumin 4.2 3.5 - 5.7 g/dL 01/28/2025 9:00 AM T [facility] Osmolality, Calculated 287 278 - 305 mOsm/kg 01/28/2025 9:00 AM EDT [facility] EGFR 83 01/28/2025 9:00 AM T [facility] Comment:As of 2021, the [...] Hill MD LAB BLOOD ORDERABLES Final Result [facility] [address] * (ABNORMAL) Hepatic Function Panel (01/28/2025 7:14 AM EDT) Total Bilirubin 0.8 0.0 - 1.5 mg/dL 01/28/2025 9:00 AM EDT [facility] Bilirubin, Direct 0.14 0.00 - 0.40 mg/dL 01/28/2025 9:00 AM EDT [facility] AST 17 13 - 39 U/L 01/28/2025 9:00 AM EDT [facility] ALT 19 7 - 52 U/L 01/28/2025 9:00 AM EDT [facility] Alkaline Phosphatase 45 36 - 125 U/L 01/28/2025 9:00 AM EDT [facility] Total Protein 6.2(L) 6.4 - 8.9 g/dL 01/28/2025 9:00 AM EDT [facility] Albumin 4.2 3.5 - 5.7 g/dL 01/28/2025 9:00 AM EDT [facility] Bilirubin, Indirect 0.66 0.00 - 1.10 mg/dL 01/28/2025 9:00 AM EDT [facility] Plasma 01/28/2025 7:14 AM EDT 01/28/2025 8:22 AM EDT Carlton Hill MD LAB BLOOD ORDERABLES Final Result [facility] [address] * (ABNORMAL) Magnesium (01/28/2025 7:14 AM EDT) Magnesium 1.1(L) 1.5 - 2.5 mg/dL 01/28/2025 9:00 AM EDT [facility] Plasma 01/28/2025 7:14 AM EDT 01/28/2025 8:22 AM EDT Carlton Hill MD LAB BLOOD ORDERABLES Final Result [facility] [address] [employer] [facility]. [address] * (ABNORMAL) CBC (01/28/2025 7:14 AM EDT) WBC 2.0(L) 3.8 - 10.8 10E3/uL 01/28/2025 9:10 AM EDT [facility] RBC 3.36(L) 4.20 - 5.80 10E6/uL 01/28/2025 9:10 AM EDT [facility] Hemoglobin 11.5(L) 13.2 - 17.1 g/dL 01/28/2025 9:10 AM EDT [facility] Hematocrit 31.0(L) 38.5 - 50.0 % 01/28/2025 9:10 AM EDT [facility] MCV 92.4 80.0 - 100.0 fL 01/28/2025 9:10 AM EDT [facility] MCH 34.2(H) 27.0 - 33.0 pg 01/28/2025 9:10 AM EDT [facility] MCHC 37.0(H) 32.0 - 36.0 g/dL 01/28/2025 9:10 AM EDT [facility] RDW 14.9 11.0 - 15.0 % 01/28/2025 9:10 AM EDT [facility] Platelets 86(L) 140 - 400 10E3/uL 01/28/2025 9:10 AM EDT [facility] MPV 6.2(L) 7.5 - 11.5 fL 01/28/2025 9:10 AM EDT [facility] Whole Blood 01/28/2025 7:14 AM EDT 01/28/2025 8:22 AM EDT Carlton Hill MD LAB BLOOD ORDERABLES Final Result [facility] [address] [employer] [facility]. [address] * CT Head WO contrast (01/28/2025 [...] FLUIDS AND STOOLS ORDERABLE S Final Result [facility] [address] [place] [address], [facility] * Respiratory viral panel (01/27/2025 9:30 PM EDT) Adenovirus Not Detected Not Detected 01/28/2025 12:20 AM EDT [facility] Coronavirus (229E,HKU1,NL63,OC 43) Not Detected Not Detected 01/28/2025 12:20 AM EDT [facility] SARS-CoV-2 Not Detected Not Detected 01/28/2025 12:20 AM EDT [facility] Human Metapneumovirus Not Detected Not Detected 01/28/2025 12:20 AM EDT [facility] Human Rhinovirus/Enterov irus Not Detected Not Detected 01/28/2025 12:20 AM EDT [facility] Influenza A Not Detected Not Detected 01/28/2025 12:20 AM EDT [facility] Influenza A H1 Not Detected Not Detected 01/28/2025 12:20 AM EDT [facility] Influenza A/H1-2009 Not Detected Not Detected 01/28/2025 12:20 AM EDT [facility] Influenza A H3 Not Detected Not Detected 01/28/2025 12:20 AM EDT [facility] Influenza B Not Detected Not Detected 01/28/2025 12:20 AM EDT [facility] Parainfluenza 1 Not Detected Not Detected 01/28/2025 12:20 AM EDT [facility] Parainfluenza 2 Not Detected Not Detected 01/28/2025 12:20 AM EDT [facility] Parainfluenza 3 Not Detected Not Detected 01/28/2025 12:20 AM EDT [facility] Parainfluenza 4 Not Detected Not Detected 01/28/2025 12:20 AM EDT [facility] Resp. Syncycial Virus A Not Detected Not Detected 01/28/2025 12:20 AM EDT [facility] Resp. Syncycial Virus B Not Detected Not Detected 01/28/2025 12:20 AM EDT [facility] Chlamydia pneumoniae Not Detected Not Detected 01/28/2025 12:20 AM EDT [facility] Mycoplasma pneumoniae Not Detected Not Detected 01/28/2025 12:20 AM EDT [facility] Comment: The Respiratory Viral-Bacterial Panel [...] results have been sent to the [facility] in accordance with state requirements. For a fact sheet for healthcare providers, see https://www.fda.gov/media/954893/download. For a fact sheet for patients, see https://www.fda.gov/media/299896/download. Nasopharyngeal Swab NASOPHARYNGEAL STRUCTURE / Unknown 01/27/2025 9:30 PM EDT 01/27/2025 10:20 PM EDT us Shelby Blanco MD BODY FLUIDS AND STOOLS ORDERABLE S Final Result [facility] [address] * Lactic acid, venous, whole blood (01/27/2025 9:30 PM EDT) Lactate, Shakeel 1.4 0.5 - 1.6 mmol/L 01/27/2025 9:42 PM EDT [facility] Blood, Venous 01/27/2025 9:3 0 PM EDT 01/27/2025 9:39 PM EDT us Pamela JACOME LAB BLOOD ORDERABLES Final Res ult Performing Organization Address [facility] Co de Phone Number [facility] [address] * (ABNORMAL) Urinalysis, Microscopic (01/27/2025 8:44 PM EDT) RBC, UA <1 0 - 3 /HPF 01/27/2025 9:32 PM EDT [facility] WBC, UA 1 0 - 5 /HPF 01/27/2025 9:32 PM EDT [facility] Hyaline Casts, UA 75(H) 0 - 2 /LPF 01/27/2025 9:32 PM EDT [facility] Mucus, UA Present(A) None Seen /HPF 01/27/2025 9:32 PM EDT [facility] Urine 01/27/2025 8:44 PM EDT 01/27/2025 9:01 PM EDT Pamela JACOME URINE ORDERABLES Final Result Performing Organization Address [facility] Co de Phone Number [facility] [address] [employer] [facility]. [address] * Strep Pneumo-Legionella Urine Antigen (01/27/2025 8:44 PM EDT) Strept Pneumo Ag Negative Negative 01/27/2025 11:12 PM EDT [facility] Legionella Antigen Negative Negative 01/27/2025 11:12 PM EDT [facility] Urine URINE SPECIMEN / Unknown 01/27/2025 8:44 PM EDT 01/27/2025 10:21 PM EDT Narrative [facility] - 01/27/2025 11:12 PM EDT Positive indicates detection of either Streptococcus pneumoniae antigen or Legionella pneumophila serogroup 1 antigen. Negative results do not rule out pneumococcal infection or infection with L. pneumophila serogroup 1, other serogroups of L. pneumophila, or other Legionella species. Shebly Blanco MD URINE ORDERABLES Final Result Performing Organization Address [facility] Co de Phone Number [facility] [address] [facility]. [address] * Histoplasma/Blastomyces Ag, EIA, U (01/27/2025 8:44 PM EDT) Histoplasma/Blasto myces Ag Result (Urine) Not Detected Not Detected 01/31/2025 11:06 AM EDT [facility] Comment: No antigen from Histoplasma or Blastomyces detected. False negative results may occur depending on extent of disease, and/or site of infection. Repeat testing on a new specimen if clinically indicated. Histoplasma/Blasto myces Ag Value (Urine) Not Detected ng/mL 01/31/2025 11:06 AM EDT [facility] Comment: ADDITIONAL INFORMATION This test was developed and its performance characteristics determined by [facility] in a manner consistent with CLIA requirements. This test has not been cleared or approved by the U.S. Food and Drug Administration. Test Performed by: [facility] [place] [address] Work Over Rig Operator: Kathy Ortiz Ph.D.; CLIA# [id number] Urine URINE SPECIMEN / Unknown 01/27/2025 8:44 PM EDT 01/31/2025 11:06 AM EDT Shelby Blanco MD URINE ORDERABLES Final Result Performing Organization Address [facility] Co de Phone Number [facility] [address] [facility]. [address] * (ABNORMAL) Urinalysis-Macroscopic w/Rfx to Microsco (01/27/2025 8:44 PM EDT) Color, UA Yellow Yellow,Straw 01/27/2025 9:32 PM EDT [facility] Clarity, UA Clear Clear 01/27/2025 9:32 PM EDT [facility] Specific [place], UA 1.015 1.005 - 1.035 01/27/2025 9:32 PM EDT [facility] pH, UA 5.5 5.0 - 8.0 01/27/2025 9:32 PM EDT [facility] Protein, UA 30(A) Negative mg/dL 01/27/2025 9:32 PM EDT [facility] Glucose, UA Negative Negative mg/dL 01/27/2025 9:32 PM EDT [facility] Ketones, UA 20(A) Negative mg/dL 01/27/2025 9:32 PM EDT [facility] Bilirubin, UA Negative Negative 01/27/2025 9:32 PM EDT [facility] Blood, UA Negative Negative 01/27/2025 9:32 PM EDT [facility] Nitrite, UA Negative Negative 01/27/2025 9:32 PM EDT [facility] Urobilinogen, UA <2.0 0.2 - 1.9 mg/dL 01/27/2025 9:32 PM EDT [facility] Leukocyte Esterase, UA Negative Negative 01/27/2025 9:32 PM EDT [facility] Urine 01/27/2025 8:44 PM EDT 01/27/2025 8:53 PM EDT us Pamela JACOME URINE ORDERABLES Final Result Performing Organization Address City/State/[facility] Co de Phone Number [facility] [address] [place] [address], [facility] * Phosphatidylethanol Confirmation, B (01/27/2025 8:20 PM EDT) PETH 16:0/18.1 (POPETH) 446 Cutoff: 10 ng/mL 01/30/2025 9:59 AM EDT [facility] Comment: Phosphatidylethanol (PEth) homologues [...] Cutoff: 10 ng/mL 01/30/2025 9:59 AM EDT [facility] Comment: PEth 16:0/18:2 (PLPEth) Reference ranges are not well established PEth Interpretation Positive. 01/30 9:59 AM EDT [facility] Comment: ADDITIONAL INFORMATION This [...] Drug Administration. Test Performed by: [facility] [place] [address] Work Over Rig Operator: Kathy Ortiz Ph.D.; CLIA# [id number] Whole Blood 01/27/2025 8:20 PM EDT 01/30/2025 9:59 AM EDT us Shelby Blanco MD LAB BLOOD ORDERABLES Final Resul t [facility] [address] [facility] [place] [address], [facility] * BK PCR, Blood (Renal Txp and BMT only) (01/27/2025 8:20 PM EDT) BKV IU DNA Quant, Blood Not Detected IU/mL 01/29/2025 1:48 PM EDT [facility] Comment: Beginning August 23, 2021, [facility] has transitioned BK viral load testing [...] log 10 IU/mL 01/29/2025 1:48 PM EDT [facility] Comment:BKV DNA Not Detected Plasma 01/27/2025 8:20 PM EDT 01/27/2025 9:49 PM EDT us Shelby Blanco MD LAB BLOOD ORDERABLES Final Resul t [facility] [address] [place] [address], [facility] * Histoplasma/Blastomyces Ag, EIA, S (01/27/2025 8:20 PM EDT) Histoplasma/Blasto myces Ag Result (Serum) Not Detected Not Detected 01/30/2025 12:49 PM EDT [facility] Comment: No antigen from Histoplasma or Blastomyces detected. False negative results may occur depending on extent of disease, and/or site of infection. Repeat testing on a new specimen if clinically indicated. Histoplasma/Blasto myces Ag Value (Serum) Not Detected ng/mL 01/30/2025 12:49 PM EDT [facility] Comment: ADDITIONAL INFORMATION This test was developed and its performance characteristics determined by [facility] in a manner consistent with CLIA requirements. This test has not been cleared or approved by the U.S. Food and Drug Administration. Test Performed by: [facility] [place] [address] [place] [address] Work Over Rig Operator: Kathy Ortiz Ph.D.; CLIA# [id number] Serum SERUM SPECIMEN / Unknown 01/27/2025 8:20 PM EDT 01/30/2025 12:49 PM EDT Comment:S us Shelby Blanco MD LAB BLOOD ORDERABLES Final Resul t [facility] [address] [place] [address], [facility] * Fungitell (01/27/2025 8:20 PM EDT) Fungitell Value <31.25 pg/mL 4:19 PM EDT [facility] Reference Value Comment 4:19 PM EDT [facility] Comment:Negative: <60, Posit bradley: >/=60 Clinical Relevance Notes 2024 4:19 PM EDT [facility] Comment: The Fungitell test is [...] Cryptococcus, which produce very low levels of (1,3)-nyrx-X-pzwjlr. This test will not detect the zygomycetes, such as Absidia, Blastomyces, Mucor, and Rhizopus, which are not known to produce (1,3)-acnz-X-zinwiz. In addition, the yeast phase of Blastomyces dermatitidis produces little (1,3)-nbgj-N-vpcoga and may not be detected by the assay. Disclaimer: Notes 02/02/2025 4:19 PM EDT [facility] Comment: This test has been cleared or approved for diagnostic use by the U.S. Food and Drug Administration. Performance characteristics were verified by [employer]. Electronically signed by: Comment 02/02/2025 4:19 PM EDT [facility] Comment:Usha Landin Fungitell Result Comment 02/03/20 4:19 PM EDT [facility] Comment:Negative Interpretation Notes 02/02/2025 4:19 PM EDT [facility] Comment: (1,3) Mgbu-V-Tzwbpl was NOT DETECTED in the sample. Reasons for negative results could include the patient being in the early stage of infection before detectable levels of (1,3) Qbdk-F-Okgmzr are present. Clinical diagnosis should be made in the context of the patient's complete medical history. Serum 01/27/2025 8:20 PM EDT 02/02/2025 5:07 PM EDT Narrative [facility] - 02/02/2025 5:07 PM EDT PERFORMED AT: [employer] [address] [place], [place] [id number] [facility]: Cyril Porter, PhD PHONE: [phone] us Shelby Blanco MD LAB BLOOD ORDERABLES Final Resul t [facility] [address] [place] [address], [facility] * Katie-Schafer Virus (EBV) PCR (01/27/2025 8:20 PM EDT) Pathologist [facility] EBV DNA, Quantitative PCR Not Detected IU/mL 01/28/2025 10:54 AM EDT [facility] EBV DNA, Log10 See Note log 10 IU/mL 01/28/2025 10:54 AM EDT [facility] Comment: Beginning September 05, 2022, [facility] has transitioned EBV viral load testing [...] ORDERABLES Final Resul t [facility] [address] [employer] [facility] [employer] [facility]. [address] * Cryptococcus Ag (01/27/2025 8:20 PM EDT) Crypto Ag, Ser Negative Negative 01/27/2025 11:41 PM EDT [facility] Crypto Ag Titer, Ser Not Applicable 01/27/2025 11:41 PM EDT [facility] Serum SERUM SPECIMEN / Unknown 01/27/2025 8:20 PM EDT 01/27/2025 10:04 PM EDT Comment:S Shelby Blanco MD LAB BLOOD ORDERABLES Final Resul t Performing Organization Address City/[facility]/ZIP Co de Phone Number [facility] [address] [facility]. [address] * Cytomegalovirus (CMV) PCR (01/27/2025 8:20 PM EDT) CMV DNA Qnt Not Detected IU/mL 01/29/2025 12:09 PM EDT [facility] Comment:Test methodology for CMV DNA quantification is an FDA-approved nucleic acid amplification assay. The Lower Limit of Quantitation (LLOQ) and Limit of Detection (LoD) for EDTA plasma is 34.5 IU/mL. The linear range of the assay is 34.5- 10,000,000 IU/mL. The reference range is Not Detected. Log10 CMV Qn DNA PI See Note log 10 IU/mL 01/29/2025 12:09 PM EDT [facility] Comment:CMV DNA not detected Plasma 01/27/2025 8:20 PM EDT 01/27/2025 9:49 PM EDT us Shelby Blanco MD LAB BLOOD ORDERABLES Final Resul t [facility] [address] [facility]. [address] * Fungus culture, blood (Blood) (01/27/2025 8:20 PM EDT) Culture Result No Fungus Isolated At 4 Weeks [facility] Blood SERUM SPECIMEN / Unknown 01/27/2025 8:20 PM EDT 01/27/2025 9:50 PM EDT Comment:S Shelby Blanco MD MICROBIOLOGY - GENERAL ORDERABLE S Final Result Performing Organization Address [facility] Co de Phone Number [address] * Aspergillus Ag (01/27/2025 8:20 PM EDT) Pathologist [facility] Aspergillus Ag. 0.03 0.00 - 0.49 Index 01/30/2025 5:54 PM EDT [facility] Serum SERUM SPECIMEN / Unknown 01/27/2025 8:20 PM EDT 01/31/2025 4:23 AM EDT Comment:S Shelby Blanco MD BODY FLUIDS AND STOOLS ORDERABLE S Final Result Performing Organization Address [facility] de Phone Number [facility] [address] [place] [address]. [address] * Adenovirus PCR (01/27/2025 8:20 PM EDT) Adenovirus, Quantitative PCR 0 0 - 0 copies/mL 02/03/2025 1:12 PM EDT [facility] Comment: Testing performed by [facility], [address] [place] [address]. This test(s) was developed and its performance characteristics determined and validated by the Department of Pathology and Laboratory Medicine at [facility]. It has not been cleared or [...] t Performing Organization Address City/[facility] Co de Phone Number [facility] [address] [place] [address]. [address] * Blood culture-Peripheral (Blood) (01/27/2025 8:20 PM EDT) Culture Result No Growth After 5 Days [facility] Blood BLOOD SPECIMEN / Unknown 01/27/2025 8:20 PM EDT 01/27/2025 9:57 PM EDT Pamela JACOME MICROBIOLOGY - GENERAL ORDERAB LES Final Result Performing Organization Address [facility] Co de Phone Number [facility] [address] [place] [address]. [address] * Blood culture-Peripheral (Blood) (01/27/2025 8:20 PM EDT) Culture Result No Growth After 5 Days [facility] Blood BLOOD SPECIMEN / Unknown 01/27/2025 8:20 PM EDT 01/27/2025 9:58 PM EDT Pamela JACOME MICROBIOLOGY - GENERAL ORDERAB LES Final Result Performing Organization Address City/[facility] Co de Phone Number [facility] [address] [place] [address]. [address] * (ABNORMAL) Lipase (01/27/2025 8:20 PM EDT) Lipase 3(L) 4 - 82 U/L 01/27/2025 9:0 3 PM EDT [facility] Plasma 01/27/2025 8:20 PM EDT 01/27/2025 8:34 PM EDT Pamela JACOME LAB BLOOD ORDERABLES Final Res ult [facility] [address] * Hepatic Function Panel (01/27/2025 8:20 PM EDT) Total Bilirubin 0.9 0.0 - 1.5 mg/dL 01/27/2025 9:03 PM EDT [facility] Bilirubin, Direct 0.1 0.0 - 0.4 mg/dL 01/27/2025 9:03 PM EDT [facility] AST 20 13 - 39 U/L 01/27/2025 9:03 PM EDT [facility] ALT 26 7 - 52 U/L 01/27/2025 9:03 PM EDT [facility] Alkaline Phosphatase 55 36 - 125 U/L 01/27/2025 9:03 PM EDT [facility] Total Protein 7.0 6.4 - 8.9 g/dL 01/27/2025 9:03 PM EDT [facility] Albumin 5.0 3.5 - 5.7 g/dL 01/27/2025 9:03 PM EDT [facility] Bilirubin, Indirect 0.8 0.0 - 1.1 mg/dL 01/27/2025 9:03 PM EDT [facility] Plasma 01/27/2025 8:20 PM EDT 01/27/2025 8:34 PM EDT Pamela JACOME LAB BLOOD ORDERABLES Final Res ult [facility] [address] * (ABNORMAL) Differential (01/27/2025 8:20 PM EDT) Pathologist [facility] Differential Comments See Note 01/27/2025 10:02 PM EDT [facility] Comment: _Platelets Appear Decreased _Platelet Morphology Normal Scan Result PERFORMED 01/27/2025 10:02 PM EDT [facility] Neutrophils Relative 50.9 40.0 - 80.0 % 01/27/2025 10:02 PM EDT [facility] Lymphocytes Relative 39.0 15.0 - 45.0 % 01/27/2025 10:02 PM EDT [facility] Monocytes Relative 7.3 0.0 - 12.0 % 01/27/2025 10:02 PM EDT [facility] Eosinophils Relative 1.3 0.0 - 8.0 % 01/27/2025 10:02 PM EDT [facility] Basophils Relative 1.5(H) 0.0 - 1.0 % 01/27/2025 10:02 PM EDT [facility] nRBC 1(H) 0 - 0 /100 WBC 01/27/2025 10:02 PM EDT [facility] Neutrophils Absolute 1,018(L) 1,520 - 8,640 /uL 01/27/2025 10:02 PM EDT [facility] Lymphocytes Absolute 780 570 - 4,860 /uL 01/27/2025 10:02 PM EDT [facility] Monocytes Absolute 146 0 - 1,296 /uL 01/27/2025 10:02 PM EDT [facility] Eosinophils Absolute 26 0 - 864 /uL 01/27/2025 10:02 PM EDT [facility] Basophils Absolute 30 0 - 108 /uL 01/27/2025 10:02 PM EDT [facility] PLT Morphology Platelet morphology appears normal 01/27/2025 10:02 PM EDT [facility] Whole Blood 01/27/2025 8:20 PM EDT 01/27/2025 8:57 PM EDT us Pamela JACOME LAB BLOOD ORDERABLES Final Res ult [facility] [address] [id number], [facility] * (ABNORMAL) CBC (01/27/2025 8:20 PM EDT) WBC 2.0(L) 3.8 - 10.8 10E3/uL 01/27/2025 10:02 PM EDT [facility] RBC 3.81(L) 4.20 - 5.80 10E6/uL 01/27/2025 10:02 PM EDT [facility] Hemoglobin 12.7(L) 13.2 - 17.1 g/dL 01/27/2025 10:02 PM EDT [facility] Hematocrit 35.1(L) 38.5 - 50.0 % 01/27/2025 10:02 PM EDT [facility] MCV 92.2 80.0 - 100.0 fL 01/27/2025 10:02 PM EDT [facility] MCH 33.3(H) 27.0 - 33.0 pg 01/27/2025 10:02 PM EDT [facility] MCHC 36.1(H) 32.0 - 36.0 g/dL 01/27/2025 10:02 PM EDT [facility] RDW 14.7 11.0 - 15.0 % 01/27/2025 10:02 PM EDT [facility] Platelets 109(L) 140 - 400 10E3/uL 01/27/2025 10:02 PM EDT [facility] Platelet Estimate Decreased 01/27/2025 10:02 PM EDT [facility] MPV 6.4(L) 7.5 - 11.5 fL 01/27/2025 10:02 PM EDT [facility] Whole Blood 01/27/2025 8:20 PM EDT 01/27/2025 8:57 PM EDT Narrative [facility] - 01/27/2025 10:02 PM EDT Peripheral blood smear was scanned per review criteria approved by the laboratory medical cost consultant. us Pamela JACOME LAB BLOOD ORDERABLES Final Res ult [facility] [address] [facility] [place] [address], [facility] * Hemoglobin A1c (01/27/2025 8:20 PM EDT) Hemoglobin A1C 4.0 4.0 - 5.6 % 01/27/2025 11:49 PM EDT [facility] Comment: Hemoglobin A1c Interpretation [...] PM EDT 01/27/2025 8:57 PM EDT Narrative [facility] - 01/27/2025 11:49 PM EDT A1C project?->Yes us Pamela JACOME LAB BLOOD ORDERABLES Final Res ult [facility] [address] [place] [address], [facility] * Basic metabolic panel (01/27/2025 8:20 PM EDT) Sodium 136 133 - 146 mmol/L 01/27/2025 9:03 PM EDT [facility] Potassium 4.0 3.5 - 5.3 mmol/L 01/27/2025 9:03 PM EDT [facility] Chloride 100 98 - 110 mmol/L 01/27/2025 9:03 PM EDT [facility] CO2 25 21 - 33 mmol/L 01/27/2025 9:03 PM EDT [facility] Anion Gap 11 3 - 16 mmol/L 01/27/2025 9:03 PM EDT [facility] BUN 16 7 - 25 mg/dL 01/27/2025 9:03 PM EDT [facility] Creatinine 1.02 0.60 - 1.30 mg/dL 01/27/2025 9:03 PM EDT [facility] Glucose 93 70 - 100 mg/dL 01/27/2025 9:03 PM EDT [facility] Calcium 9.7 8.6 - 10.3 mg/dL 01/27/2025 9:03 PM EDT [facility] Osmolality, Calculated 283 278 - 305 mOsm/kg 01/27/2025 9:03 PM EDT [facility] EGFR >90 01/27/2025 9:03 PM EDT [facility] Comment: As of 2021, the [...] JACOME LAB BLOOD ORDERABLES Final Res ult [facility] [address] [facility] [place] [id number], [facility] * X-ray Chest PA and Lateral [...] Diarrhea of presumed infectious origin- Primary Immunosuppression ([facility]) documented in this encounter Administered Medications [...] 1 hour 1533 (New Bag - Provider: Gldais Tello, ЮЛИЯ) PRN Medication Order 01/28/2025 01/29/2025 [...] documented as of this encounter Care Teams Applied Marine Physics Professor Relationship Specialty Start Date End Date Enedina Mcguire NP [address] [place] [address] PCP - General Internal Medicine 10/05/24 Maureen Pantoja, ЮЛИЯ Txp Post Coordinator Transplant Hepatology 10/28/24 documented as of this encounter
--- OUTSIDE RECORDS SUMMARY | 2025-02-12 10:50 | XMS_ITS | Encounter Summary ---
Author Organization [facility] Address [address] [place] [id number] Care Team Providers Care Gypsum Block Setter Name Role Phone Enedina Mcguire NP Primary Care Provider + [phone] Maureen Pantoja RN Unavailable Unavail able Source [...] release of HIV test results or diagnoses. [id number] Reason for Referral * Diagnostic Lab (Routine) - New Request Specialty Diagnoses / Procedures Referred By Shane hernadez Referred To Contact Diagnoses Liver transplant recipient (CMS-HCC) Kidney transplant recipient Immunosuppression ([facility]) Viral disease exposure Procedures BK Virus Quantitative by PCR, Blood [facility] Liver Transplant at [address] [address] Phone: tel: fax: Referral ID Status Reason Start Date Expiration Date V isits Requested Visits Authorized [id number] New Request 02/12/2025 08/11/2025 1 1 * Diagnostic Lab (Routine) - New Request Specialty Diagnoses / Procedures Referred By Contac t Referred To Contact Diagnoses Liver transplant recipient ([facility]) Kidney transplant recipient Immunosuppression ([facility]) Viral disease exposure Procedures BK Virus Quantitative by PCR, Blood [facility] Liver Transplant at [address] [address] Phone: tel: fax: Referral ID Status Reason Start Date Expiration Date V isits Requested Visits Authorized [id number] New Request 02/12/2025 08/11/2025 1 1 * Diagnostic Lab (Routine) - New Request Specialty Diagnoses / Procedures Referred By Contac t Referred To Contact Diagnoses Liver transplant recipient (CMS-HCC) Kidney transplant recipient Immunosuppression (CMS-HCC) Viral disease exposure Procedures BK Virus Quantitative by PCR, Blood [facility] Liver Transplant at [address] [address] Phone: tel: fax: Referral ID Status Reason Start Date Expiration Date V isits Requested Visits Authorized [id number] New Request 02/12/2025 08/11/2025 1 1 Reason for Visit * Reason Comments Liver Transplant Follow-up Encounter Details Date Type Department Care Team (Late st Contact Info) Description 02/12/2025 10:50 AM EDT Office Visit [facility] Liver Transplant at [address] [address] Chris Orosco MD [address] [place] [phone] Liver transplant recipient (CMS-HCC) (Primary Dx); [...] the past 12 months has th e [employer], oil, or water [employer] threatened to shut off services in your [...] Chris Orosco MD, MPH Transplant hepatology Pager: [phone] * Maureen Pantoja RN - 02/12/2025 10:50 [...] of systemic steroid therapy Liver transplant recipient ([facility]HCC) Kidney transplant recipient Immunosuppressive management encounter following liver transplant ([facility]) Encounter for monitoring tacrolimus therapy Vitamin D deficiency 1 Occurrences starting 02/12/2025 until 08/27/2025 Vitamin D 25 hydroxy Lab Routine History of systemic steroid therapy Vitamin D deficiency 1 Occurrences starting 02/12/2025 until 08/27/2025 Hepatic Function Panel Lab Routine S/P liver transplant ([facility]-HCC) Immunosuppression ([facility]) weekly for 52 Occurrences starting 02/12/2025 until 02/12/2026 Renal Function Panel w/EGFR Lab Routine S/P liver transplant ([facility]-H[facility]) Immunosuppression ([facility]) weekly for 52 Occurrences starting 02/12/2025 until 02/12/2026 CBC Lab Routine S/P liver transplant ([facility]) Immunosuppression ([facility]) weekly for 52 Occurrences starting 02/12/2025 until 02/12/2026 Differential Lab Routine S/P liver transplant ([facility]-HCC) Immunosuppression ([facility]) weekly for 52 Occurrences starting 02/12/2025 until 02/12/2026 Tacrolimus level Lab Routine S/P liver transplant ([facility]) Immunosuppression ([facility]) weekly for 52 Occurrences starting 02/12/2025 until 02/12/2026 Cytomegalovirus DNA, Quant, RT PCR Lab Routine S/P liver transplant ([facility]) Immunosuppression ([facility]) Viral disease exposure Expected: 02/24/2025 (Approximate), Expires: 08/27/2025 Cytomegalovirus DNA, Quant, RT PCR Lab Routine S/P liver transplant ([facility]) Immunosuppression ([facility]) Viral disease exposure Expected: 03/10/2025 (Approximate), Expires: 08/27/2025 BK Virus Quantitative by PCR, Blood Lab Routine Liver transplant recipient ([facility]) Kidney transplant recipient Immunosuppression ([facility]) Viral disease exposure Expected: 04/28/2025 (Approximate), Expires: 08/13/2026 BK Virus Quantitative by PCR, Blood Lab Routine Liver transplant recipient ([facility]) Kidney transplant recipient Immunosuppression ([facility]) Viral disease exposure Expected: 07/27/2025 (Approximate), Expires: 08/27/2025 BK Virus Quantitative by PCR, Blood Lab Routine Liver transplant recipient ([facility]) Kidney transplant recipient Immunosuppression ([facility]) Viral disease exposure Expected: 10/27/2025 (Approximate), Expires: 08/13/2026 Phosphatidylethanol Confirmation, B Lab Routine [place] Kidney transplant recipient Alcohol use disorder weekly for 52 Occurrences starting 02/12/2025 until 02/12/2026 Magnesium Lab Routine Liver transplant recipient ([facility]) Kidney transplant recipient Immunosuppressive management encounter following liver transplant ([facility]) weekly for 52 Occurrences starting 02/12/2025 until 02/12/2026 Post Kidney Transplant Urine Culture Microbiology Routine Liver transplant recipient ([facility]) Kidney transplant recipient Immunosuppressive management encounter following liver transplant ([facility]) weekly for 52 Occurrences starting 02/12/2025 until 08/13/2026 Urinalysis w/Rfl to Microscopic Lab Routine Kidney transplant recipient Immunosuppressive management encounter following liver transplant ([facility]) weekly for 52 Occurrences starting 02/12/2025 until 08/13/2026 Protein / creatinine ratio, urine Lab Routine Kidney transplant recipient Immunosuppressive management encounter following liver transplant ([facility]) weekly for 52 Occurrences starting 02/12/2025 until 08/13/2026 Microalbumin (Random UR) Lab Routine Kidney transplant recipient Immunosuppressive management encounter following liver transplant [place] weekly for 52 Occurrences starting 02/12/2025 until 08/13/2026 documented as of this encounter Visit Diagnoses Diagnosis Liver transplant recipient [place] Primary History of systemic steroid therapy Personal history of systemic steroid therapy Kidney transplant recipient Immunosuppressive management encounter following liver transplant [place] Encounter for monitoring tacrolimus therapy Vitamin D deficiency Unspecified vitamin D deficiency Encounter for therapeutic drug monitoring S/P liver transplant [place] Hypomagnesemia Disorders of magnesium metabolism Hypertension, unspecified type Gastroesophageal reflux disease, unspecified whether esophagitis present Alcohol use disorder Immun[place]uppression [place] Viral disease exposure Contact with or exposure to other viral diseases documented in this encounter Additional Health Concerns Infection Onset Date Last Indicated Resolved Time C. difficile 01/28/2025 01/28/2025 Assessment Noted Time PHQ-9 Depression Total Score: 2 12/11/19 25 9:00 AM EDT documented as of this encounter Care Teams Gypsum Block Setter Relationship Specialty Start Date End Date Enedina Mcguire NP [address] [place] [address] PCP - General Internal Medicine 10/05/24 Maureen Pantoja, ЮЛИЯ Txp Post Coordinator Transplant Hepatology 10/28/24 documented as of this encounter
--- OUTSIDE RECORDS SUMMARY | 2025-02-17 15:15 | XMS_ITS | Encounter Summary ---
Author Organization [facility] Address [address] [place] [address] Care Team Providers Care Gallery Host Name Role Phone Enedina Mcguire APRN Primary Care Provider + Reason for Visit * Reason Comments Follow-up Patient following up after liver and kidney transplant. Patient stated he's doing good. Encounter Details Date Type Department Care Team (Late st Contact Info) Description 02/17/2025 3:15 PM EDT Office Visit [facility] INTER[facility]ICINE [address] [place] [address] Enedina Mcguire APRN [address] [place] [address] Encounter for follow-up (Primary Dx); [...] 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 [facility] Utilities Answer Date Recorded In the past 12 months has [employer], gas, oil, or water [employer] threatened to shut off services in [...] 0 10/02/2022 [employer] of Occupat ional Health - Occupational Stress [...] GED or equivalent No 07/09/2024 Preferred Language Estonian 07/09/2024 PHQ-2 Answer Date Recorded Patient Health [...] and liver. Patient continues to follow under [facility]. Letter was sent in October regarding instructions recommendations for this patient. As stated at about 3 months posttransplant patient will be transition to one of our transplant customer care coordinator group for continuity where they willmanage his liver perspective. liver transplant patient is assigned a posttransplant nurse coordinator Patient did request an updated refill of his once weekly vitamin D supplement Overall patient states he is feeling well. He continues to follow with [facility] about once every 2 months and does have frequent blood work completed Patient states that his liver transplant specialist did provide him clearance to restart on testosterone therapy. Will reach out to [facility] for further confirmation regarding this. Last [...] Surgeon: Presley Montes De Oca MD; Location: [facility]; Service: Gastroenterology; Laterality: N/A; ENDOSCOPY N/A 07/29/2022 Procedure: ESOPHAGOGASTRODUODENOSCOPY; Surgeon: Presley Montes De Oca MD; Location: [facility]; Service: Gastroenterology; Laterality: N/A; WITH APC [...] , Rfl: vitamin D (ERGOCALCIFEROL) 1.25 MG (12525 UT) capsule capsule, Take 1 capsule by [...] deficiency - vitamin D (ERGOCALCIFEROL) 1.25 MG (60678 UT) capsule capsule; Take 1 capsule by [...] will reach out to his provider at [facility] for further confirmation of clearance of [...] of this note may be an electronic transit planning director/translation of spoken language to printed textusing the Symbian Foundationation System. documented in this encounter Plan of Treatment Upcoming Encounters Date Type Department Care Team (Late st Contact Info) Description 05/18/2025 2:30 PM EST Office Visit [facility] INTER[facility]ICINE [address] [place] [phone] Enedina Mcguire APRN [address] [place] [address] 05/21/2025 12:30 PM EST Office Visit [facility] PAIN MANAGEMENT [address] [address] Vazquez Christie PA-C [address] [place] [address] [place], [place] [phone] Scheduled Orders Name Type Priority Associated Diagnoses [...] documented as of this encounter Care Teams Gallery Host Relationship Specialty Start Date End Date Enedina Mcguire APRN [address] [place] [address] PCP - General Nurse Practitioner 10/27/24 documented as of this encounter
--- OUTSIDE RECORDS SUMMARY | 2025-02-19 07:45 | XMS_ITS | Encounter Summary ---
Author Organization [facility] Address [address] [place] [address] Care Team Providers Care Quality Assurance Coach Name Role Phone Enedina Mcguire APRN Primary Care Provider + Reason for Visit * Surgical (Routine) - Closed Specialty Diagnoses / Procedures Referred By Shane t Referred To Contact Pain Medicine Diagnoses Cervical radiculopathy Procedures External Facility Surgical/Procedural Request Tye Song MD [address] [place] [address] Phone: tel: fax: [facility] AT [address] [address] Phone: tel: fax: Referral ID Status Reason Start Date Expiration Date V isits Requested Visits Authorized [id number] Closed Other 01/08/2025 04/09/2026 1 1 Encounter Details Date Type Department Care Team (Late st Contact Info) Description 02/19/2025 7:45 AM EDT Outside Facility Service [facility] PAIN MANAGEMENT [address] [address] Tye Song MD [address] [place] [address] Social History Tobacco Use Types Packs/Day Years Used Date Smoking Tobacco: Former Cigarettes 4 20 Passive Smoke Exposure: Past Smokeless Tobacco: Current Comments:MARIJUANA USE ABOUT 2X PER WEEK - reports no use 03-25-2025 Alcohol Use Standard Drinks/Week Comments Not Currently 0 (1 standard drink = 0.6 oz pure alcohol) 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 [facility] Utilities Answer Date Recorded In the [...] 0 10/02/2022 [facility] - Occupational Stress Questionnaire Answer Date [...] [facility] INTER[facility] [address] [place] [address] Enedina Mcguire, CHIEF OF SAFETY AND PROTECTION [address] [place], [place] [id number] 05/21/2025 12:30 PM EST Office Visit [facility] PAIN [facility]NAGEMENT 3000 [facility] 330 [place] [address] Vazquez Christie PA-C 1760 [facility] [address] [place] [address] documented as of this encounter Visit Diagnoses Not on filedocumented in this encounter Additional Health Concerns Assessment Noted Time PHQ-2 Depression Total Score: 1 12/31/19 24 3:25 PM EDT documented as of this encounter Care Teams Quality Assurance Coach Relationship Specialty Start Date End Date Enedina Mcguire APRN [address] [place] [address] PCP - General Nurse Practitioner 10/27/24 documented as of this encounter
--- OUTSIDE RECORDS SUMMARY | 2025-02-25 10:50 | XMS_ITS | Encounter Summary ---
Author Organization [facility] Address [address] [place] [address] Care Team Providers Care Parking Manager Name Role Phone Enedina Mcguire NP Primary Care Provider + [phone] Maureen Pantoja RN Unavailable Unavail able Source [...] release of HIV test results or diagnoses. [id number] Reason for Referral * Physician/SAWYER (Routine) - No Authorization Required Specialty Diagnoses / Procedures Referred By Shane t Referred To Contact Pain Medicine Diagnoses Kidney transplant recipient Neck pain with history of cervical spinal surgery S/P liver transplant ([facility]) [facility] Kidney Transplant at [address] [address] Phone: tel: fax: Referral ID Status Reason Start Date Expiration Date Visits Requested Visits Authorized [id number] No Authorization Required 08/24/2025 1 1 Scheduling Instructions For appointments, please call [phone]. Reason for Visit * Reason Comments Kidney Transplant Follow-up Encounter Details Date Type Department Care Team ([facility] Contact Info) Description 02/25/2025 10:50 AM EDT Office Visit [facility] Kidney Transplant at [facility] [address] [facility] [address] [place] [address] Carlton Wright MD [address], [facility] [address] [place] [address] Kidney transplant recipient (Primary Dx); Neck pain with history of cervical spinal surgery; S/P liver transplant (CMS-HCC) Social History Tobacco Use Types Packs/Day [...] Recorded In the past 12 months has [employer], [employer], or water [employer] threatened to shut off services in [...] living in a longterm (including now)? No 01/28/2025 Yearly Questionnaire Answer [...] Activity: Unknown (07/14/2024) Received from [facility] Exercise Vital Sign Days of Exercise per Week: Patient unable to answer Minutes of Exercise per Session: Not on file Stress: Patient Unable To Answer (07/14/2024) Received from [facility] [place] of Occupational Health - Occupational Stress Questionnaire Feeling of Stress : Patient unable to answer Social Connections: Patient Unable To Answer (07/14/2024) Received from [facility] Social Connection and Isolation Panel [NHANES] Frequency [...] Results Component Value Date PTH 36.0 10/25/2024 [id number] 7.1 (L) 10/08/2024 Hemoglobin A1C: Lab Results [...] documented as of this encounter Care Teams Parking Manager Relationship Specialty Start Date End Date Enedina Mcguire NP [address] [place] [address] PCP - General Internal Medicine 10/05/24 Maureen Pantoja, ЮЛИЯ Txp Post Coordinator Transplant Hepatology 10/28/24 documented as of this encounter
--- OUTSIDE RECORDS SUMMARY | 2025-03-03 13:45 | XMS_ITS | Encounter Summary ---
Author Organization [facility] Address [address] [place] [address] Care Team Providers Care Space Planner Name Role Phone Enedina Mcguire APRN Primary Care Provider + Reason for Referral * Surgical (Routine) - Authorized Specialty Diagnoses / Procedures Referred By Shane hernadez Referred To Contact Diagnoses Occipital neuralgia of right side Procedures External Facility Surgical/Procedural Request Vazquez Christie PA-C [address] [place] [address] Phone: tel: fax: [facility] 3000 [facility] [address] [place] [address] Phone: tel: fax: Referral ID Status Reason Start Date Expiration Date Visits Requested Visits Authorized [id number] Authorized Continuity of Care 03/03/2025 06/02/2026 1 1 Reason for Visit * Reason Comments Follow-up Neck Pain Encounter Details Date Type Department Care Team (Late st Contact Info) Description 03/03/2025 1:45 PM EDT Office Visit [facility] PAIN MANAGEMENT 3000 [facility] [address] [place] [address] Vazquez Christie PA-C [address] [place] [address] Occipital neuralgia of right side (Primary Dx); [...] Recorded In the past 12 months has [employer], gas, oil, or water [employer] threatened to shut off services in your [...] 0 10/02/2022 [facility] of Occupat ional [facility] - Occupational Stress Questionnaire Answer [...] EDT Referring Physician: Enedina Mcguire APRN [address] [place] [address] Primary Physician: Enedina Mcguire APRN CHIEF COMPLAINT [...] Surgeon: Presley Montes De Oca MD; Location: [facility]; Service: Gastroenterology; Laterality: N/A; ENDOSCOPY N/A 07/29/2022 Procedure: ESOPHAGOGASTRODUODENOSCOPY; Surgeon: Presley Montes De Oca MD; Location: [facility]; Service: Gastroenterology; Laterality: N/A; WITH APC [...] Rfl: 0 vitamin D (ERGOCALCIFEROL) 1.25 MG (91799 UT) capsule capsule, Take 1 capsule by [...] 9. Records: Kristofer reviewed; [facility] notes reviewed 10. Lifestyle goals: Follow-up 2 months [facility] Pain Management Vazquez Christie PA-C documented in this encounter Plan of Treatment Upcoming Encounters Date Type Department Care Team (Late st Contact Info) Description 05/18/2025 2:30 PM EST Office Visit [facility] INTERNAL MEDICINE [address] [place] [address] Enedina Mcguire, COUNTY ASSESSOR [address] [place] [address] [phone] 05/21/2025 12:30 PM EST Office Visit [facility] PAIN MANAGEMENT [address] [address] Vazquez Christie PA-C 1760 [facility] [address] [place] [phone] Scheduled Orders Name Type Priority Associated Diagnoses [...] as of this encounter Care Teams Space Planner Relationship Specialty Start Date End Date Enedina Mcguire APRN [address] [place] [phone] PCP - General Nurse Practitioner 10/27/24 documented as of this encounter
[2025-03-04 11:32] LABS: Microscopic, Urine URINE MICROSCOPIC (MICROSCOPIC)
[2025-03-04 11:52] LABS: Hematocrit 36.3 % (42.0-52.0); Hemoglobin 13.0 g/dL (14.1-18.0); Immature Granulocytes % 0.4 %; Mean Corpuscular HGB Conc 35.8 g/dL (31.8-35.4); Mean Corpuscular Hemoglobin 33.5 pg (27.0-31.2); Mean Corpuscular Volume 93.6 fl (80-94); Nucleated Red Blood Cells % 0 %; Platelet Count 115 K/mm3 (142-424); Red Blood Count 3.88 M/mm3 (4.60-6.20); Red Cell Distribution Width-SD 47.6 fL; White Blood Count 7.7 K/mm3 (4.8-10.8)
--- OUTSIDE RECORDS SUMMARY | 2025-03-04 11:58 | XMS_ITS | Encounter Summary ---
Author Organization [facility] Address [address] [place] [address] Care Team Providers Care Rim Buster Name Role Phone Enedina Mcguire APRN Primary Care Provider + Reason for Visit * Reason Onset Date Comments Results 02/20/2025 Encounter Details Date Type Department Care Team ([facility] st Contact Info) Description 02/20/2025 Telephone [facility] INTERNAL MEDICINE [address] [place] [address] Enedina Mcguire APRN [address] [place] [address] Results Social History Tobacco Use Types Packs/Day Years Used Date Smoking Tobacco: Former Cigarettes 4 20 Passive Smoke Exposure: Past Smokeless Tobacco: Current Comments:MARIJUANA USE ABOUT 2X PER WEEK - reports no use 08-05-2024 Alcohol Use Standard Drinks/Week Comments Not Currently 0 (1 standard drink = 0.6 oz pure alcohol) 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 [facility] Utilities Answer Date Recorded In the past 12 months has [employer], [employer], oil, or water [employer] threatened to shut off services in [...] Brief Depression Severity Measure Score 0 10/02/2022 [facility] - Occupational Stress Questionnaire Answer [...] - 02/20/2025 2:42 PM EDT Pt sent [employer] message as well, message sent to Enedina on results * Telephone Encounter - Liliana Glez RegSched Rep - 02/20/2025 1:34 PM EDT Caller: Julien Anderson Relationship: Self Best call back number: [phone] What test was performed: TESTOSTERONE TEST When [...] Description 05/18/2025 2:30 PM EST Office Visit [facility] INTERNAL MEDICINE [address] [place] [address] Enedina Mcguire, TENSIONING MACHINE OPERATOR [address] [place] [address] 05/21/2025 12:30 PM EST Office Visit [facility] PAIN MANAGEMENT 3000 [facility] 330 [place] [address] Vazquez Christie PA-C 1760 [facility] [address] [place] [address] documented as of this encounter Visit Diagnoses Not on filedocumented in this encounter Additional Health Concerns Assessment Noted Time PHQ-2 Depression Total Score: 1 12/31/19 24 3:25 PM EDT documented as of this encounter Care Teams Rim Buster Relationship Specialty Start Date End Date Enedina Mcguire APRN [address] [place] [address] PCP - General Nurse Practitioner 10/27/24 documented as of this encounter
--- OUTSIDE RECORDS SUMMARY | 2025-03-04 11:58 | XMS_ITS | Encounter Summary ---
Author Organization [facility] Address [address] [place] [address] Care Team Providers Care Instructor Ground Services Name Role Phone Enedina Mcguire APRN Primary Care Provider + Encounter Details Date Type Department Care Team (Late st Contact Info) Description 02/20/2025 Telephone [facility] PAIN MANAGEMENT [address] [address] Georgina Rainey MA Social History Tobacco Use Types Packs/Day Years Used Date Smoking Tobacco: Former Cigarettes 4 20 Passive Smoke Exposure: Past Smokeless Tobacco: Current Comments:MARIJUANA USE ABOUT 2X PER WEEK - reports no use 08-05-2024 Alcohol Use Standard Drinks/Week Comments Not Currently 0 (1 standard drink = 0.6 oz pure alcohol) 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 [facility] Utilities Answer Date Recorded In the past 12 months has [employer], oil, or water [employer] threatened to shut off services in your [...] Brief Depression Severity Measure Score 0 10/02/2022 [facility] - Occupational Stress Questionnaire Answer Date Recorded [...] Description 05/18/2025 2:30 PM EST Office Visit [facility] INTERNAL MEDICINE [address] [place] [address] Enedina Mcguire APRN [address] [place] [address] 05/21/2025 12:30 PM EST Office Visit [facility] PAIN MANAGEMENT [address] [address] Vazquez Christie PA-C 1760 [facility] [address] [place] [address] documented as of this encounter Visit Diagnoses Not on filedocumented in this encounter Additional Health Concerns Assessment Noted Time PHQ-2 Depression Total Score: 1 12/31/19 24 3:25 PM EDT documented as of this encounter Care Teams Instructor Ground Services Relationship Specialty Start Date End Date Enedina Mcguire APRN [address] [place] [address] PCP - General Nurse Practitioner 10/27/24 documented as of this encounter
--- OUTSIDE RECORDS SUMMARY | 2025-03-04 11:59 | XMS_ITS | Encounter Summary ---
Author Organization [facility] Address [address] [place] [address] Care Team Providers Care Intake Man Name Role Phone Enedina Mcguire APRN Primary Care Provider + Reason for Visit * Reason Onset Date Comments SONG- INJECTION SCHEDULE 02/11/2025 Encounter Details Date Type Department Care Team (Late st Contact Info) Description 02/11/2025 Telephone [facility] PAIN MANAGEMENT [address] [address] Tye Song MD [address] [address] SONG- INJECTION SCHEDULE Social History Tobacco Use Types Packs/Day Years Used Date Smoking Tobacco: Former Cigarettes 4 20 Passive Smoke Exposure: Past Smokeless Tobacco: Current Comments:MARIJUANA USE ABOUT 2X PER WEEK - reports no use 08-05-2024 Alcohol Use Standard Drinks/Week Comments Not Currently 0 (1 standard drink = 0.6 oz pure alcohol) 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 [facility] Utilities Answer Date Recorded In the past 12 months has [employer], gas, oil, or water [employer] threatened to shut off services in your [...] Brief Depression Severity Measure Score 0 10/02/2022 [facility] - Occupational Stress Questionnaire Answer [...] JULIEN Relationship to Patient: SELF Phone Number: [phone] Reason For Call: PATIENT CALLING TO GET BACK ON THE SCHEDULE FOR HIS INJECTIONS documented in this encounter Plan of Treatment Upcoming Encounters Date Type Department Care Team (Late st Contact Info) Description 05/18/2025 2:30 PM EST Office Visit [facility] INTERNAL MEDICINE [address] [place] [phone] Enedina Mcguire, ELECTRICAL AND INSTRUMENTATION MANAGER [address] [place] [address] 05/21/2025 12:30 PM EST Office Visit [facility] PAIN [facility]NAGEMENT 3000 [facility] 330 [place] [address] Vazquez Christie PA-C 1760 [facility] [address] [place] [address] documented as of this encounter Visit Diagnoses Not on filedocumented in this encounter Additional Health Concerns Assessment Noted Time PHQ-2 Depression Total Score: 1 12/31/19 24 3:25 PM EDT documented as of this encounter Care Teams Intake Man Relationship Specialty Start Date End Date Enedina Mcguire APRN [address] [place] [address] PCP - General Nurse Practitioner 10/27/24 documented as of this encounter
--- OUTSIDE RECORDS SUMMARY | 2025-03-04 11:59 | XMS_ITS | Encounter Summary ---
Author Organization [facility] Address [facility] [place] [address] Care Team Providers Care Market Intelligence Consultant Name Role Phone Enedina Mcguire NP Primary Care Provider + [phone] Maureen Pantoja RN Unavailable Unavail able Chris Orosco MD Unavailable +[phone] Source Comments This information has been disclosed [...] release of HIV test results or diagnoses. [id number] Health Reason for Visit * Reason Comments Medication Refill Encounter Details Date Type Department Care Team (Late st Contact Info) Description 03/02/2025 Refill [facility] [address] [place] [phone] Feliciano Gomez CNP [address] [place] [address] [phone] Social History Tobacco Use Types Packs/Day Years Used Date Smoking Tobacco: Former Cigarettes Smokeless Tobacco: Current Alcohol Use Standard Drinks/Week Comments Yes 0 (1 standard drink = 0.6 oz pure alcohol) History of alcohol abuse, reports no use in 3 week- typically endorses use as 4 glasses of wine a days Utilities Answer Date Recorded In the past 12 months has th e [employer], [employer], or [employer] threatened to shut off services in your [...] in a senior care (including now)? No 01/28/2025 Yearly Questionnaire Answer [...] as of this encounter Care Teams Market Intelligence Consultant Relationship Specialty Start Date End Date Enedina Mcguire NP [address] [place] [address] PCP - General Internal Medicine 10/05/24 Maureen Pantoja RN Txp Post Coordinator Transplant Hepatology 10/28/24 Chris Orosco MD 3130 [facility] 3200 [place] [address] Consulting Physician Transplant Hepatology 02/26/25 documented as of this encounter
--- OUTSIDE RECORDS SUMMARY | 2025-03-04 11:59 | XMS_ITS | Encounter Summary ---
Author Organization [facility] Address [address] [place] [address] Care Team Providers Care Certified Medical Assistant Name Role Phone Enedina Mcguire APRN Primary Care Provider + Encounter Details Date Type Department Care Team ([facility] st Contact Info) Description 02/23/2025 Prior Authorization [facility] INTERNAL MEDICINE [address] [place] [address] Enedina Mcguire APRN [address] [place] [address] [phone] Social History Tobacco Use Types Packs/Day Years [...] Recorded In the past 12 months has [employer], [employer], oil, or water [employer] threatened to shut off services in [...] 0 10/02/2022 [facility] of Occupat ional Health - Occupational [...] - Maria Fernanda Evans MA - 02/24/2025 2:55 PM EDT PA approved effective 02/24/2025-02/24/2026 * Telephone Encounter - Maria Fernanda Evans MA - 02/24/2025 2:55 PM EDT PA sent to plan for testosterone cypionate * Telephone Encounter - Maria Fernanda Evans MA - 02/24/2025 11:14 AM EDT Sent [employer] message to patient. * Telephone Encounter - [...] Description 05/18/2025 2:30 PM EST Office Visit [facility] INTERNAL MEDICINE [address] [place] [address] Enedina Mcguire, MANAGER FIELD SERVICE [address] [place] [address] [phone] 05/21/2025 12:30 PM EST Office Visit [facility] PAIN MANAGEMENT 3000 [facility] [address] [place] [address] Vazquez Christie PA-C 1760 [facility] 302 [place] [address] documented as of this encounter Visit Diagnoses Not on filedocumented in this encounter Additional Health Concerns Assessment Noted Time PHQ-2 Depression Total Score: 1 12/31/19 24 3:25 PM EDT documented as of this encounter Care Teams Certified Medical Assistant Relationship Specialty Start Date End Date Enedina Mcguire APRN [address] [place] [address] PCP - General Nurse Practitioner 10/27/24 documented as of this encounter
--- OUTSIDE RECORDS SUMMARY | 2025-03-04 11:59 | XMS_ITS | Encounter Summary ---
Author Organization [facility] Address [address] [place] [address] Care Team Providers Care Soap Slabber Name Role Phone Enedina Mcguire NP Primary Care Provider + [phone] Maureen Pantoja RN Unavailable Unavail able Source [...] release of HIV test results or diagnoses. [id number] Reason for Visit * Reason Comments Critical Lab Results Encounter Details Date Type Department Care Team (Late st Contact Info) Description 01/05/2025 Telephone [facility] Liver Transplant at [address] [place] [address] Marisela Martinez MA Critical Lab Results [...] In the past 12 months has e [employer], gas, oil, or water [employer] threatened to shut off services in your [...] - 01/05/2025 11:15 AM EDT Lizeth from [facility] called to report a [...] documented as of this encounter Care Teams Soap Slabber Relationship Specialty Start Date End Date Enedina Mcguire NP [address] [place] [address] PCP - General Internal Medicine 10/05/24 Maureen Pantoja, ЮЛИЯ Txp Post Coordinator Transplant Hepatology 10/28/24 documented as of this encounter
--- OUTSIDE RECORDS SUMMARY | 2025-03-04 11:59 | XMS_ITS | Encounter Summary ---
Author Organization [facility] Address [address] [place] [address] Care Team Providers Care Operator Helper Name Role Phone Enedina Mcguire APRN Primary Care Provider + Encounter Details Date Type Department Care Team (Late st Contact Info) Description 02/19/2025 Documentation [facility] PAIN MANAGEMENT [address] [address] Tye Song MD [address] [place] [phone] Social History Tobacco Use Types Packs/Day Years Used Date Smoking Tobacco: Former Cigarettes 4 20 Passive Smoke Exposure: Past Smokeless Tobacco: Current Comments:MARIJUANA USE ABOUT 2X PER WEEK - reports no use 08-05-2024 Alcohol Use Standard Drinks/Week Comments Not Currently 0 (1 standard drink = 0.6 oz pure alcohol) 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 [facility] Utilities Answer Date Recorded In the past 12 months has [employer], [employer], oil, or water [employer] threatened to shut off services in your [...] 0 10/02/2022 [facility] - Occupational Stress Questionnaire Answer Date [...] Song MD - 02/19/2025 9:31 AM EDT [facility] [address] [place] [address] DATE OF SERVICE: 02/19/2025 PROCEDURE: Fluoroscopically-guided bilateral [...] schedule #2 medial branch block ADDITIONAL NOTES: [facility] Pain Management Tye Song MD Codes: [id number] documented in this encounter Plan of Treatment Upcoming Encounters Date Type Department Care Team (Late st Contact Info) Description 05/18/2025 2:30 PM EST Office Visit [facility] INTERNAL MEDICINE [address] [place] [address] Enedina Mcguire, RAMBO [address] [place] [address] 05/21/2025 12:30 PM EST Office Visit [facility] PAIN MANAGEMENT [address] [address] Vazquez Christie PA-C 1760 [facility] [address] [place] [address] documented as of this encounter Visit Diagnoses Not on filedocumented in this encounter Additional Health Concerns Assessment Noted Time PHQ-2 Depression Total Score: 1 12/31/19 24 3:25 PM EDT documented as of this encounter Care Teams Operator Helper Relationship Specialty Start Date End Date Enedina Mcguire APRN [address] [place] [address] PCP - General Nurse Practitioner 10/27/24 documented as of this encounter
--- OUTSIDE RECORDS SUMMARY | 2025-03-04 11:59 | XMS_ITS | Encounter Summary ---
Author Organization [facility] Address [address] [place] [address] Care Team Providers Care Import Specialist Name Role Phone Enedina Mcguire NP Primary Care Provider + [phone] Maureen Pantoja RN Unavailable Unavail able Chris Orosco MD Unavailable +[phone] Source Comments This information has been disclosed [...] release of HIV test results or diagnoses. [id number] Encounter Details Date Type Department Care Team (Late st Contact Info) Description 02/26/2025 Chart Note [facility] Liver Transplant at [place] [id number] [address] Marlene Ro MA 02/24 Labs entered from [facility] Social History Tobacco Use Types Packs/Day Years Used Date Smoking Tobacco: Former Cigarettes Smokeless Tobacco: Current Alcohol Use Standard Drinks/Week Comments Yes 0 (1 standard drink = 0.6 oz pure alcohol) History of alcohol abuse, reports no use in 3 week- typically endorses use as 4 glasses of wine a days Utilities Answer Date Recorded In the past 12 months has [employer], gas, oil, or water company threatened to [...] Progress Notes * Marlene Ro MA - 02/26/2025 12:12 PM EDT Images from the original note were not included. 02/24 Labs entered from [facility] documented in this encounter Plan of Treatment Not on file documented as of this encounter Procedures Procedure Name Priority Date/Time Associated Diagnosis Comments URINE PROTEIN, TOTAL, RANDOM (W/O CREATININE) Routine 02/24/2025 1:03 PM EDT HEPATIC FUNCTION PANEL Routine 02/24/2025 1:03 PM EDT TACROLIMUS LEVEL Routine 02/24/2025 1:03 PM EDT CREATININE, URINE, RANDOM Routine 02/24/2025 1:03 PM EDT URINALYSIS W/RFL TO MICROSCOPIC Routine 02/24/2025 1:03 PM EDT CBC AND DIFFERENTIAL Routine 02/24/2025 1:03 PM EDT URINE CULTURE Routine 02/24/2025 1:03 PM EDT MAGNESIUM Routine 02/24/2025 1:03 PM EDT RENAL FUNCTION PANEL W/O EGFR Routine 02/24/2025 1:03 PM EDT documented in this encounter Results * Tacrolimus level (02/24/2025 1:03 PM EDT) Tacrolimus Lvl 7.1 6 - 15 ng/mL Whole Blood us Historical Provider LAB BLOOD ORDERABLES Denisse l Result * (ABNORMAL) Magnesium (02/24/2025 1:03 PM EDT) [facility] Magnesium 1.2(A) 1.6 - 2.4 mg/dL Plasma Narrative Resulting Agency Comment [facility] Result [facility] LAB BLOOD ORDERABLES Denisse l Result * (ABNORMAL) Renal Function Panel w/o EGFR (02/24/2025 1:03 PM EDT) [facility] Glucose 121 BUN 18 CO2 26(A) 13 - 22 mmol/L Creatinine 1.00 Potassium 4.1 Sodium 140 Chloride 99 Phosphorus 4.6 2.5 - 4.9 mg/dL Calcium 9.4 EGFR 82 mg/dL Albumin 4.7 3.5 - 5.0 g/dL Blood Narrative Resulting Agency Comment [facility] Result [facility] LAB BLOOD ORDERABLES Denisse l Result * Creatinine, urine, random (02/24/2025 1:03 PM EDT) [facility] Creatinine, Urine 96 Urine Narrative Resulting Agency Comment [facility] Result [facility] URINE ORDERABLES Final Re sult * (ABNORMAL) Urinalysis w/Rfl to Microscopic (02/24/2025 1:03 PM EDT) [facility] Glucose, UA Negative Negative Ketones, UA Negative Negative Blood, UA Negative Negative Bilirubin, UA Negative Negative Urobilinogen, UA Normal Normal Protein, UA 1+(A) Negative pH, UA 6.0 4.5 - 8.0 Specific [place], UA 1.020 1.005 - 1.030 Clarity, UA Clear Clear Color, UA Yellow Light Yellow, Yellow Urine Narrative Resulting Agency Comment [facility] Result [facility] Provider URINE ORDERABLES Final Re sult * (ABNORMAL) CBC and differential (02/24/2025 1:03 PM EDT) Hemoglobin 12.9(A) 13.5 - 17.5 g/dL Hematocrit 36.5(A) 41 - 53 % RDW 13.7 11.5 - 14.5 % Lymphocytes Absolute 1.8 / L Monocytes Absolute 0.7 / L Eosinophils Absolute 0.1 / L Basophils Absolute 0.1 / L Neutrophils Relative 64.1 46 - 78 % Lymphocytes Relative 23.7 18 - 52 % Monocytes Relative 8.9 3 - 10 % Eosinophils Relative 1.2 0 - 6 % Basophils Relative 0.9 0 - 3 % Neutrophils Absolute 4.8 / L MCH 32.9 26.0 - 34.0 pg MCHC 35.3 30 - 37 g/dL MCV 93.1 82.0 - 108.0 fL Platelets 101 K/ L RBC 3.92(A) 4.50 - 5.90 10^6/ L WBC 7.5 10^3/mL Blood Narrative Resulting Agency Comment [facility] Result [facility] Provider LAB BLOOD ORDERABLES Denisse l Result * Urine Protein, Tot, Random (w/o Creat) (02/24/2025 1:03 PM EDT) Total Protein, Ur 63.0 Urine Narrative Resulting Agency Comment [facility] Result [facility] Provider URINE ORDERABLES Final Re sult * Hepatic Function Panel (02/24/2025 1:03 PM EDT) Bilirubin, Direct 0.5 Bilirubin, Indirect 0.4 Alkaline Phosphatase 184 ALT 52 AST 71 Total Bilirubin 0.9 Total Protein 6.8 Plasma Narrative Resulting Agency Comment [facility] Result [facility] Provider LAB BLOOD ORDERABLES Denisse l Result * Urine culture (02/24/2025 1:03 PM EDT) Urine Culture, Comprehensive no growth URINE SPECIMEN / Unknown Narrative Resulting Agency Comment [facility] us Historical Provider MICROBIOLOGY - GENERAL OR DERABLES Final Result documented in this encounter Visit Diagnoses Not on filedocumented in this encounter Additional Health Concerns Infection Onset Date Last Indicated Resolved Time C. difficile 01/28/2025 01/28/2025 Assessment Noted Time PHQ-9 Depression Total Score: 2 12/11/19 25 9:00 AM EDT documented as of this encounter Care Teams Import Specialist Relationship Specialty Start Date End Date Enedina Mcguire NP [address] [place] [address] PCP - General Internal Medicine 10/05/24 Maureen Pantoja, ЮЛИЯ Txp Post Coordinator Transplant Hepatology 10/28/24 Chris Orosco MD [address] [place] [address] [address] [place] [address] Consulting Physician Transplant Hepatology 02/26/25 documented as of this encounter
--- OUTSIDE RECORDS SUMMARY | 2025-03-04 11:59 | XMS_ITS | Encounter Summary ---
Author Organization [facility] Address [address] [place] [address] Care Team Providers Care Mental Health Consultant Name Role Phone Enedina Mcguire NP Primary Care Provider + [phone] Maureen Pantoja RN Unavailable Unavail able Source [...] release of HIV test results or diagnoses. [id number] Health Encounter Details Date Type Department Care Team (Late st Contact Info) Description 01/05/2025 Chart Note [facility] Liver Transplant at [address] [place] [phone] Marlene Ro MA 01/05 Labs entered from [facility] Social History Tobacco Use Types Packs/Day Years Used Date Smoking Tobacco: Former Cigarettes Smokeless Tobacco: Current Alcohol Use Standard Drinks/Week Comments Yes 0 (1 standard drink = 0.6 oz pure alcohol) History of alcohol abuse, reports no use in 3 week- typically endorses use as 4 glasses of wine a days Utilities Answer Date Recorded In the past 12 months has [employer], gas, oil, or water [employer] threatened to shut off services in your [...] were not included. 01/05 Labs entered from [facility] documented in this encounter Plan [...] PCR, Blood (01/05/2025 9:27 AM EDT) Pathologist [facility] BK Virus Quant PCR PL Negative Plasma Result [facility] LAB BLOOD ORDERABLES Denisse l Result * Urine culture (01/05/2025 9:27 AM EDT) Pathologist [facility] Urine Culture, Comprehensive no growth URINE SPECIMEN / Unknown Result [facility] MICROBIOLOGY - GENERAL OR DERABLES Final Result * (ABNORMAL) Magnesium (01/05/2025 9:27 AM EDT) [facility] Magnesium 1.0(A) 1.6 - 2.4 mg/dL Plasma Narrative Resulting Agency Comment [facility] Result [facility] LAB BLOOD ORDERABLES Denisse l Result * (ABNORMAL) Renal Function Panel w/o EGFR (01/05/2025 9:27 AM EDT) [facility] Glucose 98 BUN 19 CO2 29(A) 13 - 22 mmol/L Creatinine 1.10 Potassium 4.0 Sodium 140 Chloride 101 Phosphorus 5.4(A) 2.5 - 4.9 mg/dL Calcium 9.7 EGFR 89 mg/dL Albumin 4.8 3.5 - 5.0 g/dL Blood Narrative Resulting Agency Comment [facility] Result [facility] LAB BLOOD ORDERABLES Denisse l Result * Creatinine, urine, random (01/05/2025 9:27 AM EDT) Pathologist [facility] Creatinine, Urine 80 Urine Narrative Resulting Agency Comment [facility] Result [facility] URINE ORDERABLES Final Re sult * Urinalysis w/Rfl to Microscopic (01/05/2025 9:27 AM EDT) Pathologist [facility] Glucose, UA Negative Negative Ketones, UA Negative Negative Blood, UA Negative Negative Bilirubin, UA Negative Negative Urobilinogen, UA Normal Normal Protein, UA Negative Negative Nitrite, UA Negative Negative pH, UA 6.0 4.5 - 8.0 Specific [place], UA 1.015 1.005 - 1.030 Clarity, UA Clear Clear Color, UA Yellow Light Yellow, Yellow Urine Narrative Resulting Agency Comment [facility] Result [facility] Provider URINE ORDERABLES Final Re sult * (ABNORMAL) CBC and differential (01/05/2025 9:27 AM EDT) [facility] Hemoglobin 11.9(A) 13.5 - 17.5 g/dL [...] 10^3/mL Blood Narrative Resulting Agency Comment [facility]ev [facility] Result [facility] Provider LAB BLOOD ORDERABLES Denisse l Result * Urine Protein, Tot, Random (w/o Creat) (01/05/2025 9:27 AM EDT) [facility] Total Protein, Ur 21.0 Urine Narrative Resulting Agency Comment [facility] Result [facility] Provider URINE ORDERABLES Final Re sult * [...] documented as of this encounter Care Teams Mental Health Consultant Relationship Specialty Start Date End Date Enedina Mcguire NP [address] [place] [address] PCP - General Internal Medicine 10/05/24 Maureen Pantoja, RN Txp Post Coordinator Transplant Hepatology 10/28/24 documented as of this encounter
--- OUTSIDE RECORDS SUMMARY | 2025-03-04 11:59 | XMS_ITS | Encounter Summary ---
Author Organization [facility] Address [address] [place] [address] Care Team Providers Care Science Intern Name Role Phone Enedina Mcguire NP Primary Care Provider + [phone] Alicia Rankin RN Unavailable Unavail able Chris Orosco MD Unavailable [phone] Source Comments This information has been disclosed [...] release of HIV test results or diagnoses. [id number] Health Reason for Visit * Reason Comments Results Medication Dose Change Encounter Details Date Type Department Care Team (Late st Contact Info) Description 02/26/2025 Telephone [facility] Liver Transplant at [address] [address] Alicia Rankin, ЮЛИЯ Results; Medication [...] In the past 12 months has [employer], gas, oil, or water company threatened to [...] Progress Notes * Alicia Rankin RN - 03/02/2025 11:36 AM EDT FK from 02/24/25 7.1 - unclear if trough level as labs timed ~ 1 PM. Patient already instructed to repeat labs this week. Will await those results. * Alicia Rankin RN - 02/26/2025 3:03 PM EDTAddended by: ALICIA RANKIN on: 02/26/2025 03:03 PM Modules accepted: Orders * Alicia Rankin RN - 02/26/2025 2:[address] Maza: Please increase tacrolimus to 6 mg twice daily due to elevated AST and ALT Restart Cellcept 250 mg twice daily for now Continue prednisone 5 mg once daily Repeat labs next week. Doses updated. Patient notified via MyChart. * Alicia Rankin RN - 02/26/2025 12:45 PM EDT Lab results from 02/24/25 reviewed. Renal panel stable. Cr 1.00; BUN 18. Bump in LFTs. Alk phos 184 (from 85), AST/ALT 71/52 (from ). FK pending. Will follow-up. Per Kidney Txp clinic visit yesterday: Discuss with hepatology to resume MMF 250 mg bid and cut back prednisone 5 mg daily. Current IS: FK 5 mg in AM and 6 mg in PM MMF on HOLD (since admission ~ 01/27/25 d/t C.diff) Prednisone 10 mg daily Will route to Txp Provider for further review and recommendations. documented in this encounter Miscellaneous Notes * Telephone Encounter - Alicia Rankin RN - 02/26/2025 12:45 PM EDT ----- Message from RAFFI Rosario sent at 02/26/2025 12:29 PM EDT ----- Elevated LFT's FK & Peth Pending Antoine wrong CMV Need to call about Vit D, and cesar see if he is due for his BK documented in this encounter Plan of Treatment [...] as of this encounter Care Teams Science Intern Relationship Specialty Start Date End Date Enedina Mcguire NP [address] [place] [address] PCP - General Internal Medicine 10/05/24 Alicia Rankin, ЮЛИЯ Txp Post Coordinator Transplant Hepatology 10/28/24 Chris Orosco MD [address] [place] [address] [address] [place] [address] Consulting Physician Transplant Hepatology 02/26/25 documented as of this encounter
--- OUTSIDE RECORDS SUMMARY | 2025-03-04 11:59 | XMS_ITS | Encounter Summary ---
Author Organization [facility] Address [address] [place] [address] Care Team Providers Care Precinct I Police Sergeant Name Role Phone Enedina Mcguire NP Primary Care Provider + [phone] Maureen Pantoja RN Unavailable Unavail able Chris Orosco MD Unavailable [phone] Source Comments This information has been disclosed [...] release of HIV test results or diagnoses. [id number] Encounter Details Date Type Department Care Team (Late st Contact Info) Description 03/02/2025 Telephone [facility] Liver Transplant at [address] [address] Marlene Ro MA Social History [...] Recorded In the past 12 months has [employer], gas, oil, or water [employer] threatened to shut off services in your [...] Progress Notes * Marlene Ro MA - 03/02/2025 11:12 AM EDT Called to check on Peth from 02/18 and tacrolimus/peth from 02/24. Aretha (medical records) reported both Peths still pending, but tacrolimus had resulted and was being faxed. Lab later found and re faxed the 02/18 peth. For 02/24, there wasn't enough blood for Peth- only tacrolimus was run. Will redraw Peth at this weeks lab visit. No further needs. documented in this encounter Plan of Treatment Not on file documented as of this encounter Visit Diagnoses Not on filedocumented in this encounter Additional Health Concerns Infection Onset Date Last Indicated Resolved Time C. difficile 01/28/2025 01/28/2025 Assessment Noted Time PHQ-9 Depression Total Score: 2 12/11/19 9:00 AM EDT documented as of this encounter Care Teams Precinct I Police Sergeant Relationship Specialty Start Date End Date Enedina Mcguire NP [address] [place] [address] PCP - General Internal Medicine 10/05/24 Maureen Pantoja, ЮЛИЯ Txp Post Coordinator Transplant Hepatology 10/28/24 Chris Orosco MD [address] [place] [address] [address] [place] [address] Consulting Physician Transplant Hepatology 02/26/25 documented as of this encounter
--- OUTSIDE RECORDS SUMMARY | 2025-03-04 11:59 | XMS_ITS | Encounter Summary ---
Author Organization [facility] Address [address] [place] [address] Care Team Providers Care Manager Life Insurance Name Role Phone Enedina Mcguire APRN Primary Care Provider + Encounter Details Date Type Department Care Team ([facility] st Contact Info) Description 02/17/2025 Telephone [facility] INTERNAL MEDICINE [address] [place] [address] Enedina Mcguire APRN [address] [place] [address] Social History Tobacco Use Types Packs/Day Years Used Date Smoking Tobacco: Former Cigarettes 4 20 Passive Smoke Exposure: Past Smokeless Tobacco: Current Comments:MARIJUANA USE ABOUT 2X PER WEEK - reports no use 08-05-2024 Alcohol Use Standard Drinks/Week Comments Not Currently 0 (1 standard drink = 0.6 oz pure alcohol) 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 [facility] Utilities Answer Date Recorded In the past 12 months has [employer], [employer], oil, or water [employer] threatened to shut off services in your [...] 0 10/02/2022 [facility] camp[facility] Health - Occupational Stress Questionnaire Answer Date [...] Please reach out to Dr. Orosco at [facility] (Phone: tel: ) Patient stated that [...] Description 05/18/2025 2:30 PM EST Office Visit [facility] INTERNAL MEDICINE [address] [place] [phone] Enedina Mcguire APRN [address] [place] [address] 05/21/2025 12:30 PM EST Office Visit [facility] PAIN MANAGEMENT [address] [facility] [address] [place] [phone] Vazquez Christie PA-C [address] [place] [address] [address] [place] [address] documented as of this encounter Visit Diagnoses Not on filedocumented in this encounter Additional Health Concerns Assessment Noted Time PHQ-2 Depression Total Score: 1 12/31/19 24 3:25 PM EDT documented as of this encounter Care Teams Manager Life Insurance Relationship Specialty Start Date End Date Enedina Mcguire APRN [address] [place] [address] PCP - General Nurse Practitioner 10/27/24 documented as of this encounter
--- OUTSIDE RECORDS SUMMARY | 2025-03-04 11:59 | XMS_ITS | Encounter Summary ---
Author Organization [facility] Address [address] [place] [address] Care Team Providers Care Manga Artist Name Role Phone Enedina Mcguire APRN Primary [...] Recorded In the past 12 months has [employer], gas, oil, or water [employer] threatened to shut off services in your [...] Brief Depression Severity Measure Score 0 10/02/2022 [facility] [place] of Occupat ional Health - Occupational Stress [...] GED or equivalent No 07/09/2024 Preferred Language Mongolian 07/09/2024 PHQ-2 Answer Date Recorded Patient Health [...] Description 05/18/2025 2:30 PM EST Office Visit [facility] INTERNAL MEDICINE [address] [place] [address] Enedina Mcguire APRN [address] [place] [phone] 05/21/2025 12:30 PM EST Office Visit [facility] PAIN MANAGEMENT [address] [facility] [address] [place] [address] Vazquez Christie PA-C [address] [place] [address] [address] [place] [address] documented as of this encounter Visit Diagnoses Not on filedocumented in this encounter Additional Health Concerns Assessment Noted Time PHQ-2 Depression Total Score: 1 12/31/19 24 3:25 PM EDT documented as of this encounter Care Teams Manga Artist Relationship Specialty Start Date End Date Enedina Mcguire APRN [address] [place] [address] [id number] PCP - General Nurse Practitioner 10/27/24 documented as of this encounter
--- OUTSIDE RECORDS SUMMARY | 2025-03-04 11:59 | XMS_ITS | Encounter Summary ---
Author Organization [facility] Address [address] [place] [address] Care Team Providers Care Senior Talent Acquisition Specialist Name Role Phone Enedina Mcguire NP Primary Care Provider + [phone] aMureen Pantoja RN Unavailable Unavail able Chris Orosco MD Unavailable [phone] Source Comments This information has been disclosed [...] release of HIV test results or diagnoses. [id number] Reason for Visit * Reason Comments Medication Refill Encounter Details Date Type Department Care Team (Late st Contact Info) Description 02/25/2025 Refill [facility] Liver Transplant at [address] [address] Lydia Sanchez MD [address] [place] [address] Liver[place] [address] Encounter for therapeutic drug monitoring; S/P liver transplant ([facility]); Hypomagnesemia; Kidney transplant recipient; Hypertension, unspecified type; [...] the past 12 months has th e [employer], [employer], oil, or water [employer] threatened to shut off services in your [...] as of this encounter Care Teams Senior Talent Acquisition Specialist Relationship Specialty Start Date End Date Enedina Mcguire NP [address] [place] [address] PCP - General Internal Medicine 10/05/24 Maureen Pantoja, RN Txp Post Coordinator Transplant Hepatology 10/28/24 Chris Orosco MD [address] [place] [address] [address] [place] [address] Consulting Physician Transplant Hepatology 02/26/25 documented as of this encounter
--- OUTSIDE RECORDS SUMMARY | 2025-03-04 11:59 | XMS_ITS | Encounter Summary ---
Author Organization [facility] Address [address] [place] [address] Care Team Providers Care Buckle Attaching Machine Operator Name Role Phone Enedina Mcguire APRN Primary Care Provider + Encounter Details Date Type Department Care Team ([facility] st Contact Info) Description 02/23/2025 Results Follow-Up [facility] INTERNAL MEDICINE [address] [place] [address] Enedina Mcguire APRN [address] [place], [place] [id number] Social History Tobacco Use Types Packs/Day Years [...] Recorded In the past 12 months has [employer], [employer], oil, or water [employer] threatened to shut off services in your [...] [facility] of Occupat ional Health - Occupational [...] GED or equivalent No 07/09/2024 Preferred Language Setswana 07/09/2024 PHQ-2 Answer Date Recorded Patient Health [...] Visit [facility] INTER[facility]INE [address] [place] [address] Enedina Mcguire APRN [address] [place] [address] 05/21/2025 12:30 PM EST Office Visit [facility] PAIN [facility]NAGEMENT [address] [facility] [address] [place] [address] Vazquez Christie PA-C [address] [place] [address] [place] [address] documented as of this encounter Visit Diagnoses Not on filedocumented in this encounter Additional Health Concerns Assessment Noted Time PHQ-2 Depression Total Score: 1 12/31/19 24 3:25 PM EDT documented as of this encounter Care Teams Buckle Attaching Machine Operator Relationship Specialty Start Date End Date Enedina Mcguire APRN [address] [place] [phone] PCP - General Nurse Practitioner 10/27/24 documented as of this encounter
--- OUTSIDE RECORDS SUMMARY | 2025-03-04 12:00 | XMS_ITS | Encounter Summary ---
Author Organization [facility] Address [address] [place] [address] Care Team Providers Care Sustainable Products Marketing Manager Name Role Phone Enedina Mcguire NP Primary Care Provider + [phone] Maureen Pantoja RN Unavailable Unavail able Source [...] release of HIV test results or diagnoses. [id number] Reason for Visit * Reason Comments Results Encounter Details Date Type Department Care Team ([facility] st Contact Info) Description 01/09/2025 Telephone [facility] Liver Transplant at [address] [address] Marisela Martinez MA Results Social [...] In the past 12 months has e [employer], gas, oil, or water [employer] threatened to shut off services in your [...] results so Txp MA can enter into [employer] and RN Txp Coordinator can review. Patient was asked by Kidney Txp Provider to repeat labs today to check magnesium level. Will await all results. * Marisela Martinez MA - 01/09/2025 1:37 PM EDT Pts outpt lab [facility] Lab called with a critical lab [...] documented as of this encounter Care Teams Sustainable Products Marketing Manager Relationship Specialty Start Date End Date Enedina Mcguire NP [address] [place] [address] PCP - General Internal Medicine 10/05/24 Maureen Pantoja, RN Txp Post Coordinator Transplant Hepatology 10/28/24 documented as of this encounter
--- OUTSIDE RECORDS SUMMARY | 2025-03-04 12:00 | XMS_ITS | Encounter Summary ---
Author Organization [facility] Address [address] [place] [address] Care Team Providers Care Western Philosophy Professor Name Role Phone Enedina Mcguire NP Primary Care Provider + [phone] Maureen Pantoja RN Unavailable Unavail able Source [...] release of HIV test results or diagnoses. [id number] Health Encounter Details Date Type Department Care Team (Late st Contact Info) Description 01/06/2025 Social Work [facility] Liver Transplant at [address] [place] [phone] Kaylin Willard MSW Social History Tobacco Use [...] Recorded In the past 12 months has [employer], gas, oil, or water [employer] threatened to shut off services in [...] to meet with patient today. NUBIA Barros, [facility] Transplant Block Splitter Operator documented in this encounter Plan of [...] documented as of this encounter Care Teams Western Philosophy Professor Relationship Specialty Start Date End Date Enedina Mcguire NP [address] [place] [id number] PCP - General Internal Medicine 10/05/24 Maureen Pantoja, ЮЛИЯ Txp Post Coordinator Transplant Hepatology 10/28/24 documented as of this encounter
--- OUTSIDE RECORDS SUMMARY | 2025-03-04 12:01 | XMS_ITS | Encounter Summary ---
Author Organization [facility] Address [address] [place] [address] Care Team Providers Care Shirt Finisher Name Role Phone Enedina Mcguire NP Primary Care Provider + [phone] Maureen Pantoja RN Unavailable Unavail able Source [...] release of HIV test results or diagnoses. [id number] Reason for Visit * Reason Comments Results Encounter Details Date Type Department Care Team (Riky st Contact Info) Description 01/08/2025 Telephone [facility] Liver Transplant at [address] [phone] Maureen Pantoja, RN Results Social [...] In the past 12 months has [employer], gas, oil, or water [employer] threatened to [...] as of this encounter Care Teams Shirt Finisher Relationship Specialty Start Date End Date Enedina Mcguire NP [address] [place] [id number] PCP - General Internal Medicine 10/05/24 Maureen Pantoja RN Txp Post Coordinator Transplant Hepatology 10/28/24 documented as of this encounter
--- OUTSIDE RECORDS SUMMARY | 2025-03-04 12:01 | XMS_ITS | Encounter Summary ---
Author Organization [facility] Address [address] [place] [address] Care Team Providers Care Immigration Judge Name Role Phone Enedina Mcguire APRN Primary Care Provider + Encounter Details Date Type Department Care Team (Late st Contact Info) Description 03/02/2025 Telephone [facility] PAIN MANAGEMENT [address] [phone] Georgina Rainey MA Social History Tobacco Use Types Packs/Day Years Used Date Smoking Tobacco: Former Cigarettes 4 20 Passive Smoke Exposure: Past Smokeless Tobacco: Current Comments:MARIJUANA USE ABOUT 2X PER WEEK - reports no use 08-05-2024 Alcohol Use Standard Drinks/Week Comments Not Currently 0 (1 standard drink = 0.6 oz pure alcohol) 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 [facility] Utilities Answer Date Recorded In the past 12 months has [employer], [employer], oil, or water [employer] threatened to shut off services in your [...] Brief Depression Severity Measure Score 0 10/02/2022 [facility] - Occupational Stress Questionnaire Answer Date [...] GED or equivalent No 07/09/2024 Preferred Language Lithuanian 07/09/2024 PHQ-2 Answer Date Recorded Patient Health Questionnaire-2 Score 0 03/03/2025 Sex and Gender Information Value Date Recorded Sex Assigned at Male 08/20/2024 8:28 PM EDT Legal Sex Male 7:45 AM EDT Gender Identity Not on file Sexual Orientation Not on file documented as of this encounter Miscellaneous Notes * Telephone Encounter - Georgina Rainey MA - 03/02/2025 12:47 PM EDT FOLLOW-UP CALL AFTER PROCEDURE I spoke with the patient regarding how they are feeling after their procedure with Dr. Song. Patient reports they is doing well. Julien Anderson underwent a C2/3 and C6/7 Medial branch block on 02/19/2025. Patient reported 0% pain relief that lasted for multiple hours. Today, the patient reports pain has returned to baseline after 24 hours Patient denies side effects or complications Patient does not have any questions or concerns at this time Moved patient's follow up with Otilio Roach to 03/03/2025 documented in this encounter Plan of Treatment Upcoming Encounters Date Type Department Care Team (Late st Contact Info) Description 05/18/2025 2:30 PM EST Office Visit [facility] INTERNAL MEDICINE [address] [place] [phone] Enedina Mcguire, CREDIT CARD SPECIALIST [address] [place] [address] 05/21/2025 12:30 PM EST Office Visit [facility] PAIN MANAGEMENT [address] [phone] Vazquez Christie PA-C [address] [place] [phone] documented as of this encounter Visit Diagnoses Not on filedocumented in this encounter Additional Health Concerns Assessment Noted Time PHQ-2 Depression Total Score: 1 12/31/19 24 3:25 PM EDT documented as of this encounter Care Teams Immigration Judge Relationship Specialty Start Date End Date Enedina Mcguire APRN [address] [place] [phone] PCP - General Nurse Practitioner 10/27/24 documented as of this encounter
--- OUTSIDE RECORDS SUMMARY | 2025-03-04 12:01 | XMS_ITS | Encounter Summary ---
Author Organization [facility] Address [address] [place] [address] Care Team Providers Care Research Executive Name Role Phone Enedina Mcguire APRN Primary Care Provider + Encounter Details Date Type Department Care Team (Latest Contact Info) Description 03/03/2025 Travel Social History Tobacco Use Types Packs/Day [...] Recorded In the past 12 months has [employer], gas, oil, or water [employer] threatened to shut off services in [...] Depression Severity Measure Score 0 10/02/2022 [facility] [place] [facility] - Occupational Stress [...] GED or equivalent No 07/09/2024 Preferred Language Papua [place] Guinean 07/09/2024 PHQ-2 Answer Date Recorded Patient [...] Description 05/18/2025 2:30 PM EST Office Visit [facility] INTERNAL MEDICINE [address] [place] [address] Enedina Mcguire APRN [address] [place] [address] [phone] 05/21/2025 12:30 PM EST Office Visit [facility] PAIN MANAGEMENT [address] [phone] Vazquez Christie PA-C [address] [place] [address] documented as of this encounter Visit Diagnoses Not on filedocumented in this encounter Additional Health Concerns Assessment Noted Time PHQ-2 Depression Total Score: 1 12/31/19 24 3:25 PM EDT documented as of this encounter Care Teams Research Executive Relationship Specialty Start Date End Date Enedina Mcguire APRN [address] [place] [address] [phone] PCP - General Nurse Practitioner 10/27/24 documented as of this encounter
--- OUTSIDE RECORDS SUMMARY | 2025-03-04 12:01 | XMS_ITS | Encounter Summary ---
Author Organization [facility] Address [address] [place] [address] Care Team Providers Care Strategy Intern Name Role Phone Enedina Mcguire APRN Primary Care Provider + Encounter Details Date Type Department Care Team ([facility] st Contact Info) Description 10/07/2024 Results Follow-Up [facility] INTERNAL MEDICINE [address] [place] [address] Enedina Mcguire APRN [address] [place], [place] [phone] Social History Tobacco Use Types Packs/Day Years Used Date Smoking Tobacco: Former Cigarettes 4 20 Passive Smoke Exposure: Past Smokeless Tobacco: Current Comments:MARIJUANA USE ABOUT 2X PER WEEK - reports no use 08-05-2024 Alcohol Use Standard Drinks/Week Comments Not Currently 0 (1 standard drink = 0.6 oz pure alcohol) 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 [facility] Utilities Answer Date Recorded In the past 12 months has [employer], [employer], oil, or water [employer] threatened to shut off services in [...] Brief Depression Severity Measure Score 0 10/02/2022 [facility]at ional Health - Occupational [...] Description 05/18/2025 2:30 PM EST Office Visit [facility] INTERNAL MEDICINE [address] [place] [address] Enedina Mcguire APRN [address] [place] [address] 05/21/2025 12:30 PM EST Office Visit [facility] PAIN MANAGEMENT [address] [facility] [address] [place] [address] Vazquez Christie PA-C [address] [place] [address] [place] [address] documented as of this encounter Visit Diagnoses Not on filedocumented in this encounter Additional Health Concerns Assessment Noted Time PHQ-2 Depression Total Score: 1 12/31/19 24 3:25 PM EDT documented as of this encounter Care Teams Strategy Intern Relationship Specialty Start Date End Date Enedina Mcguire APRN [address] [place] [address] [phone] PCP - General Nurse Practitioner 10/27/24 documented as of this encounter
--- OUTSIDE RECORDS SUMMARY | 2025-03-04 12:01 | XMS_ITS | Encounter Summary ---
[facility] Organization [facility] Address [address] [place] [address] Care Team Providers Care Mechanical Drafter Name Role Phone Enedina Mcguire APRN Primary Care Provider + Encounter Details Date Type Department Care Team ([facility] st Contact Info) Description 10/07/2024 Results Follow-Up [facility] INTERNAL MEDICINE [address] [place] [address] Enedina Mcguire APRN [address] [place], [place] [phone] Social History Tobacco Use Types Packs/Day Years [...] Recorded In the past 12 months has [employer], [employer], oil, or water [employer] threatened to shut off services in your [...] Description 05/18/2025 2:30 PM EST Office Visit [facility] INTERNAL MEDICINE [address] [place] [address] Enedina Mcguire APRN [address] [place] [address] 05/21/2025 12:30 PM EST Office Visit [facility] PAIN MANAGEMENT [address] [facility] [address] [place] [address] Vazquez Christie PA-C [address] [place] [address] [place] [address] documented as of this encounter Visit Diagnoses Not on filedocumented in this encounter Additional Health Concerns Assessment Noted Time PHQ-2 Depression Total Score: 1 12/31/19 24 3:25 PM EDT documented as of this encounter Care Teams Mechanical Drafter Relationship Specialty Start Date End Date Enedina Mcguire APRN [address] [place] [address] [phone] PCP - General Nurse Practitioner 10/27/24 documented as of this encounter
--- OUTSIDE RECORDS SUMMARY | 2025-03-04 12:01 | XMS_ITS | Encounter Summary ---
Author Organization [facility] Address [address] [place] [address] Care Team Providers Care Anesthesiology Medical Doctor Name Role Phone Enedina Mcguire APRN Primary Care Provider + Reason for Visit * Reason Comments Med Refill Encounter Details Date Type Department Care Team (Late st Contact Info) Description 07/20/2022 Refill [facility] GASTROENTEROLOGY [address] [facility] [address] [place] [address] Lj Tapia APRN [address] [place] [address] Secondary esophageal varices without bleeding Social History [...] or training? Not on file Preferred Language Maori 07/03/2022 Sex and Gender Information Value Date [...] Visit [facility] INTERNAL MEDICINE [address] [place] [phone] Enedina Mcguire APRN [address] [place], [place] [phone] 05/21/2025 12:30 PM EST Office Visit [facility] PAIN MANAGEMENT [address] [address] Vazquez Christie PA-C [address] [facility] [address] [place] [address] documented as of this encounter Visit Diagnoses Diagnosis Secondary esophageal varices without bleeding documented in this encounter Additional Health Concerns Infection Onset Date Last Indicated Resolved Time COVID Screen (preop/placement) 07/28/2022 07/28/2022 07/29/2022 12:00 AM EDT documented as of this encounter Care Teams Anesthesiology Medical Doctor Relationship Specialty Start Date End Date Enedina Mcguire APRN [address] [place] [address] [phone] PCP - General Nurse Practitioner 10/27/24 documented as of this encounter
--- OUTSIDE RECORDS SUMMARY | 2025-03-04 12:02 | XMS_ITS | Encounter Summary ---
Author Organization [facility] Address [address] [place] [address] Care Team Providers Care Agency Development Manager Name Role Phone Jony Conde MD Primary Care Provider [phone] Lj Tapia RESTAURANT FRONT MANAGER Unavailable [phone] Enedina Mcguire RESTAURANT FRONT MANAGER Primary Care Provider + Nuria Fall SIGNAL ENGINEER Unavailable Unavaila ble Encounter Details Date Type Department Care Team (Late st Contact Info) Description 07/04/2022 Orders Only External Location [address] [place] [address] Presley Montes De Oca MD [address] [place] [phone] Social History Tobacco Use Types Packs/Day Years [...] on filedocumented in this encounter Care Teams Agency Development Manager Relationship Specialty Start Date End Date Jony Conde MD [address] [facility] [address] [place] [address] PCP - General 07/18/22 12/03/22 Enedina Mcguire APRN [address] [place] [address] PCP - General 12/04/22 Lj Tapia APRN [address] [place] [address] Referring Physician Gastroenterology 07/18/22 Nuria Fall LPN [facility] TCM Nurse 07/24/24 08/23/24 documented as of this encounter
--- OUTSIDE RECORDS SUMMARY | 2025-03-04 12:02 | XMS_ITS | Clinical Summary ---
Author Organization [facility] Address [address] [place] [address] Care Team Providers Care Machine Coremaker Name Role Phone Enedina Mcguire APRN Primary Care Provider + Allergies No known active allergies Medications folic acid (FOLVITE) 1 MG tablet Take 1 tablet by mouth Daily. Active Additional Information Patient not taking.Reported on 03/03/2025 topiramate (TOPAMAX) 25 MG tablet Take by mouth. Active lidocaine (LIDODERM) 5 % Place 1 patch on the skin as directed by provider Daily. Active levothyroxine (SYNTHROID, LEVOTHROID) 75 MCG tabletIndications :Acquired hypothyroidism Take 1 tablet by mouth Daily. 30 tablet Active FLUoxetine (PROzac) 20 MG capsule Take 1 capsule by mouth Daily. Active loratadine (CLARITIN) 10 MG tablet Take 1 tablet by mouth. Active methocarbamol (ROBAXIN) 500 MG tablet Take 1 tablet by mouth 2 (Two) Times a Day. Active tacrolimus (PROGRAF) 1 MG capsule Take by mouth. Take 5 capsules (5 mg total) by mouth every morning AND 6 capsules (6 mg total) at bedtime. Use as directed. Indications: Prevention of Kidney Transplant Rejection, Prevention of Liver Transplant Rejection. Active HYDROmorphone (DILAUDID) 2 MG tablet Take 1 tablet by mouth Every 6 (Six) Hours. Active predniSONE (DELTASONE) 5 MG tablet Take 1.5 tablets by mouth Daily. Active valGANciclovir (VALCYTE) 450 MG tablet Take 1 tablet by mouth Daily. Active naltrexone (DEPADE) 50 MG tablet Take 1 tablet by mouth Daily. Active cyclobenzaprine (FLEXERIL) 5 MG tablet Take 1 tablet by mouth 3 (Three) Times a Day. Active gabapentin (NEURONTIN) 300 MG capsule Take 1 capsule by mouth 3 (Three) Times a Day. Active MAGNESIUM CHLORIDE PO Take by mouth. Act bradley NIFEdipine XL (PROCARDIA XL) 30 MG 24 hr tablet Take 1 tablet by mouth Daily. Active vitamin D (ERGOCALCIFEROL) 1.25 MG (27524 UT) capsule capsuleIndication s:Vitamin D deficiency Take 1 capsule by mouth 1 (One) Time Per Week. 12 capsule 1 Active Syringe 25G X 5/8 3 ML miscIndications:L ow testosterone in male Use 1 each 1 (One) Time Per Week. 12 each 1 Active Testosterone Cypionate 200 MG/ML kitIndications:Lo w testosterone in male Inject 1 mL into the appropriate muscle as directed by prescriber 1 (One) Time Per Week. 4 kit Active mycophenolate (CELLCEPT) 250 MG capsule Take 1 capsule by mouth 2 (Two) Times a Day. Active famotidine (PEPCID) 20 MG tablet Take 1 tablet by mouth 2 (Two) Times a Day. Active riFAXIMin (Xifaxan) 550 MG tabletIndications :Hepatic encephalopathy Take 1 tablet by mouth Every 12 (Twelve) Hours. 180 tablet 023 2024 Discontinued(* Therapy completed) lactulose (CHRONULAC) 10 GM/15ML solution Take 30 mL by mouth 2 (Two) Times a Day. 025 2024 Discontinued(* Therapy completed) multivitamin with minerals tablet tablet Take 1 tablet by mouth Daily. 025 2024 Discontinued(* Therapy completed) thiamine (VITAMIN B1) 100 MG tablet Take 1 tablet by mouth Daily. 025 2024 Discontinued(* Therapy completed) naloxone (NARCAN) 4 MG/0.1ML nasal spray Administer 1 spray into the nostril(s) as directed by provider. 2024 Discontinued(* Therapy completed) Bempedoic Acid-Ezetimibe (Nexlizet) 180-10 MG tablet Take 1 tablet by mouth Daily. 2024 Discontinued(* Therapy completed) pantoprazole (PROTONIX) 40 MG EC tabletIndications :Secondary esophageal varices without bleeding Take 1 tablet by mouth Daily. 30 tablet 2024 Discontinued(* Therapy completed) ciprofloxacin (CIPRO) 500 MG tablet Take 1 tablet by mouth Daily. 2024 Discontinued(* Therapy completed) lactulose (CHRONULAC) 10 GM/15ML solution solution (encephalopathy) Take 30 mL by mouth 3 (Three) Times a Day. 2024 Discontinued(* Therapy completed) midodrine (PROAMATINE) 10 MG tablet Take 1 tablet by mouth 3 (Three) Times a Day. 2024 Discontinued(* Therapy completed) potassium chloride ER (K-TAB) 20 MEQ tablet controlled-releas e ER tablet Take 2 tablets by mouth Daily. 2024 Discontinued(* Therapy completed) torsemide (DEMADEX) 20 MG tablet 2024 Discontinued(* Therapy completed) ursodiol (ACTIGALL) 300 MG capsule Take 1 capsule by mouth. 2024 Discontinued(* Therapy completed) zinc sulfate (ZINCATE) 220 (50 Zn) MG capsule Take 1 capsule by mouth Daily. 2024 Discontinued(* Therapy completed) mycophenolate (CELLCEPT) 250 MG capsule Take 2 capsules by mouth 2 (Two) Times a Day. 2024 Discontinued(* Therapy completed) acetaminophen (TYLENOL) 325 MG tablet Take 3 tablets by mouth Every 8 (Eight) Hours As Needed. 2024 vitamin D (ERGOCALCIFEROL) 1.25 MG (45438 UT) capsule capsule Take 1 capsule by mouth 1 (One) Time Per Week. 2024 Discontinued(R eorder) Testosterone Enanthate 75 MG/0.5ML solution auto-injectorIndi cations:Low testosterone in male Inject 75 mg under the skin into the appropriate area as directed 1 (One) Time Per Week. 1.96 mL 025 2024 Discontinued Active Problems Problem Noted [...] Encounters Date Type Department Care Team Description 03/03/2025 1:45 PM EDT Office Visit [facility] [address] [facility] [address] [place] [address] Vazquez Christie PA-C Occipital neuralgia of right side (Primary Dx); Cervical spondylosis without myelopathy; Cervical pain (neck); Long-term use of high-risk medication; Cervical radiculopathy; Therapeutic drug monitoring; Chronic pain syndrome 03/03/2025 Travel 03/02/2025 Telephone [facility] [address] [facility] [address] [place] [address] Georgina Rainey MA 02/23/2025 Prior Authorization [facility] [address] [place] [address] Enedina Mcguire, EXECUTIVE ADMIN 02/23/2025 Results Follow-Up [facility] [address] [place] [address] Enednia Mcguire, EXECUTIVE ADMIN 02/20/2025 Telephone [facility] [address] [place] [address] Enedina Mcguire, EXECUTIVE ADMIN Results 02/20/2025 Telephone [facility] [address] [address] Georgina Rainey MA 02/19/2025 7:45 AM EDT Outside Facility Service [facility] [address] [address] Tye Song MD 02/19/2025 Documentation [facility] [address] [address] Tye Song MD 02/17/2025 3:15 PM EDT Office Visit [facility] [address] [place] [address] Enedina Mcguire, EXECUTIVE ADMIN Encounter for follow-up (Primary Dx); Kidney transplant recipient; Liver transplant recipient; Vitamin D deficiency; Low testosterone in male; History of systemic steroid therapy 02/17/2025 Telephone [facility] [address] [place] [address] Enedina Mcguire, EXECUTIVE ADMIN 02/17/2025 Travel 02/11/2025 Telephone [facility] [address] [address] Tye Song MD [facility]- INJECTION SCHEDULE 01/08/2025 Telephone [facility] [address] [address] Vazquez Christie PA-C Appointment 01/01/2025 2:15 PM EDT Office Visit [facility] [address] [facility] [address] [place] [address] Vazquez Christie PA-C Cervical radiculopathy (Primary Dx); Long-term use of high-risk medication; Cervical spondylosis without myelopathy; Cervical pain (neck); Therapeutic drug monitoring; Chronic pain syndrome 01/01/2025 Travel 12/12/2024 Refill [facility] [address] [place] [address] Enedina Mcguire APRN Acquired hypothyroidism; Secondary esophageal varices without bleeding 12/05/2024 Telephone [facility] [address] [facility] [place] [address] Vazquez Christie PA-C 12/04/2024 2:55 PM EDT Lab [facility] [place] [address] [facility] [address] [place] [address] Therapeutic drug monitoring 12/04/2024 2:15 PM EDT Office Visit [facility] [address] [facility] [address] [place] [address] Vazquez Christie PA-C Cervical radiculopathy [...] In the past 12 months has e [employer], gas, oil, or water [employer] threatened to shut off services in your [...] Brief Depression Severity Measure Score 0 10/02/2022 [facility] [place] of Occupat ional Health - Occupational Stress [...] GED or equivalent No 07/09/2024 Preferred Language Macanese 07/09/2024 PHQ-2 Answer Date Recorded Patient Health [...] EDT Inhaled Oxygen Concentration - - Weight 111 kg (245 lb) 03/03/2025 1:50 PM EDT Height 193 cm (6' 3.98 ) 03/03/2025 1:50 PM EDT Body Mass Index 29.83 03/03/2025 1:50 PM EDT Plan of Treatment Upcoming Encounters Date Type Department Care Team (Late st Contact Info) Description 05/18/2025 2:30 PM EST Office Visit [facility] [address] [place] [address] Enedina Mcguire, EXECUTIVE ADMIN [address] [place] [address] 05/21/2025 12:30 PM EST Office Visit [facility] [address] [facility] [address] [place] [address] Vazquez Christie PA-C [address] [facility] [address] [place] [address] Health Maintenance Due Date Last Done Comments Hepatitis B (2 of 3 - 19+ 3- dose series) 10/11/2010 09/13/2010 ANNUAL PHYSICAL 10/14/2024 10/15/2023, 10/02/2022 INFLUENZA VACCINE 12/12/2024 03/12/2024, 03/12/2023 LIPID PANEL 10/07/2025 10/07/2024, 03/0 07/2024, 07/14/2024, Additional history exists TDAP/TD VACCINES (3 - Td or Tdap) 06/03/2028 019, 09/13/2010 HEPATITIS C SCREENING Completed 11/25/2024 , 11/25/2024, 10/25/2024, Additional history exists Pneumococcal Vaccine 0-49 Discontinued Medical Devices Implanted Type Area Car Retarder Operator Device Identifier Shelf Expiration Date Model / Serial / Lot Coil Concerto Pgla Hel Detach Sys 10mm 30cm - [id number] Implanted:Qty: 1 on 07/03/2022 by Timmy Brunner MD at [facility] Implant Left: Vein EV3 A [employer] [id number] / / [id number] Description:Coil is in the s hort gastric vein Coil Concerto Nyl [place] Detach Sys 10mm 30cm - [id number] Implanted:Qty: 1 on 07/03/2022 by Timmy Brunner MD at [facility] Implant Left: Vein EV3 A [employer] [id number] / / [id number] Description:Short gastric ve in Coil Concerto Nyl [place] Detach Sys 10mm 30cm - [id number] Implanted:Qty: 1 on 07/03/2022 by Timmy Brunner MD at [facility] Implant Left: Vein EV3 A [employer] [id number] X / / [id number] Description:Short gasrtic ve in Coil Concerto Nyl [place] Detach Sys 10mm 30cm - [id number] Implanted:Qty: 1 on 07/03/2022 by Timmy Brunner MD at [facility] Implant Left: Vein EV3 A [employer] [place] [id number] / / [id number] Description:Short gastric ve in Coil Concerto Nyl [place] Detach Sys 8mm 30cm - [id number] Implanted:Qty: 1 on 07/03/2022 by Timmy Brunner MD at [facility] Implant Left: Vein EV3 A [employer] [id number] / / [id number] Description:Short gastric ve in Coil Concerto Nyl [place] Detach Sys 8mm 30cm - [id number] Implanted:Qty: 1 on 07/03/2022 by Timmy Brunner MD at [facility] Implant Left: Vein EV3 A [employer] [id number] / / [id number] Description:Short gastric ve in Sys Del Liq Emb Trufill Nbca 1g Vl - [id number] Implanted:Qty: 1 on 07/03/2022 by Timmy Brunner MD at [facility] Implant Left: Vein [facility] [id number] / / [id number] Description:Short gastric ve in Plug Vasc Anton Emb Ampltz .027 2pm9n91mz - [id number] Implanted:Qty: 1 on 07/03/2022 by Timmy Brunner MD at [facility] Implant Left: Vein [employer] [id number] / / [id number] Description:Coronary vein Coil Concerto Nyl [place] Detach Sys 8mm 30cm - [id number] Implanted:Qty: 1 on 07/03/2022 by Timmy Brunner MD at [facility] Implant Left: Vein EV3 A [employer] [id number] / / [id number] Description:CORONARY VEIN Gelatin Emb Embocube 5.02mm 50mg Red - [id number] Implanted:Qty: 1 on 07/03/2022 by Timmy Brunner MD at [facility] Implant Left: Vein [facility] [id number] / / [id number] Description:SHORT GASTRIC VE IN Coil Emb Dona 3.7/Lp .035in 14cm 12mm - [id number] Implanted:Qty: 1 on 07/03/2022 by Timmy Brunner MD at [facility] Implant Left: Vein [employer] [id number] / / [id number] Description:SHORT GASTRIC VE IN Coil Concerto Pgla [place] Detach Sys 12mm 30cm - [id number] Implanted:Qty: 1 on 07/03/2022 by Timmy Brunner MD at [facility] Implant Left: Vein EV3 A [employer] [id number] / / [id number] Description:Short gastric ve in Coil Concerto Nyl [place] Detach Sys 8mm 30cm - [id number] Implanted:Qty: 1 on 07/03/2022 by Timmy Brunner MD at [facility] Implant Left: Vein EV3 A [employer] [id number] / / [id number] Description:SHORT GASTRIC VE IN Coil Concerto Nyl [place] Detach Sys 8mm 30cm - [id number] Implanted:Qty: 1 on 07/03/2022 by Timmy Brunner MD at [facility] Implant Left: Vein EV3 A [employer] [id number] / / [id number] Description:Short gastric ve in Coil Concerto Nyl [place] Detach Sys 8mm 30cm - [id number] Implanted:Qty: 1 on 07/03/2022 by Timmy Brunner MD at [facility] Implant Left: Vein EV3 A [employer] [id number] / / [id number] Description:Short gastric ve in Coil Concerto Pgla Hel Detach Sys 14mm 40cm - [id number] Implanted:Qty: 1 on 07/03/2022 by Timmy Brunner MD at [facility] Implant Left: Vein EV3 A [employer] [id number] / / [id number] Description:Short gastric ve in Coil Concerto Pgla Hel Detach Sys 14mm 40cm - [id number] Implanted:Qty: 1 on 07/03/2022 by Timmy Brunner MD at [facility] Implant Left: Vein EV3 A [employer] [id number] / / [id number] Description:Short gastric ve in Coil Concerto Pgla [place] Detach Sys 14mm 30cm - [id number] Implanted:Qty: 1 on 07/03/2022 by Timmy Brunner MD at [facility] Implant Left: Vein EV3 A [employer] [id number] / / [id number] Description:Short gastric ve in Coil Concerto Pgla [place] Detach Sys 14mm 30cm - [id number] Implanted:Qty: 1 on 07/03/2022 by Timmy Brunner MD at [facility] Implant Left: Vein EV3 A [employer] [id number] / / [id number] Description:Short gastric ve in Coil Concerto Pgla [place] Detach Sys 14mm 30cm - [id number] Implanted:Qty: 1 on 07/03/2022 by Timmy Brunner MD at [facility] Implant Left: Vein EV3 A [employer] [id number] / / [id number] Description:Short gastric ve in Procedures Procedure Name [...] Urine Positive(A) Negative 12/04 8:32 PM EDT [facility] Phencyclidine (PCP), Urine Negative Negative 12/04/2024 8:32 PM EDT [facility] Cocaine Screen, Urine Negative Negative 12/04/2024 8:32 PM EDT [facility] Methamphetamine, Ur Negative Negative 12/04/2024 8:32 PM EDT [facility] Opiate Screen Positive(A) Negative 12/04/2024 8:32 PM EDT [facility] Amphetamine Screen, Urine Negative Negative 12/04/2024 8:32 PM EDT [facility] Benzodiazepine Screen, Urine Negative Negative 12/04/2024 8:32 PM EDT [facility] Tricyclic Antidepressants Screen Negative Negative 12/04/2024 8:32 PM EDT [facility] Methadone Screen, Urine Negative Negative 12/04/2024 8:32 PM EDT [facility] Barbiturates Screen, Urine Negative Negative 12/04/2024 8:32 PM EDT [facility] Oxycodone Screen, Urine Negative Negative 12/04/2024 8:32 PM EDT [facility] Buprenorphine, Screen, Urine Negative Negative 12/04/2024 8:32 PM EDT [facility] Urine Urine specimen obtained by clean catch procedure / Unknown Collection / Unknown 12/04/2024 2:50 PM EDT 12/04/2024 2:54 PM EDT [facility] - 12/04/2024 8:32 PM EDT [...] Christie PA-C URINE ORDERABLES Final R esult [facility]
[address] [place] [address], * Fentanyl, Urine - Urine, Clean Catch (12/04/2024 2:50 PM EDT) Fentanyl, Urine Negative Negative 12/04/2024 9:15 PM EDT [facility] Urine Urine specimen obtained by clean catch procedure / Unknown Collection / Unknown 12/04/2024 2:50 PM EDT 12/04/2024 2:54 PM EDT [facility] - 12/04/2024 9:15 PM EDT [...] Christie PA-C URINE ORDERABLES Final R esult [facility]
[address] [place] [address], * Hepatitis Panel, Acute (07/08/2024 10:33 PM EST) Pathologist [facility] Hepatitis B Surface Ag Non-Reacti ve Non-Reacti ve 07/09/2024 2:07 PM EST [facility] Hep A IgM Non-Reacti ve Non-Reacti ve 07/09/2024 2:07 PM EST [facility] Hep B C IgM Non-Reacti ve Non-Reacti ve 07/09/2024 2:07 PM EST [facility] Hepatitis C Ab Non-Reacti ve Non-Reacti ve 07/09/2024 2:07 PM EST [facility] Blood Line / Unknown 07/08/2024 10 :33 PM EST 07/08/2024 10:42 PM EST [facility] - 07/09/2024 2:07 PM EST Results may be falsely decreased if patient taking Biotin. us Chiquis JACOME LAB BLOOD ORDERABLES Final Resu lt [facility]
[address] [place] [id number], * (ABNORMAL) Lipid Panel (10/15/2023 4:16 PM EDT) Total Cholesterol 234(H) 0 - 200 mg/dL 10/16/2023 2:33 AM EDT [facility] Triglycerides 203(H) 0 - 150 mg/dL 10/16/2023 2:33 AM EDT [facility] HDL Cholesterol 41 40 - 60 mg/dL 10/16/2023 2:33 AM EDT [facility] LDL Cholesterol 156(H) 0 - 100 mg/dL 10/16/2023 2:33 AM EDT [facility] VLDL Cholesterol 37 5 - 40 mg/dL 10/16/2023 2:33 AM EDT [facility] LDL/HDL Ratio 3.72 10/16/2023 2:33 AM EDT [facility] Blood Venipuncture / Unknown 10/15/2023 4:16 PM EDT 10/15/2023 4:16 PM EDT Narrative [facility] - 10/16/2023 2:33 AM [...] APRN LAB BLOOD ORDERABLES Fin al Result [facility]
[address] [place] [address], [place] [phone] from Last 3 Months or Most Recently Relevant to Health Maintenance Insurance [employer] [place] [id number] Advance Directives * CPR (Attempt to Resuscitate) [...] Support Discussed With: Patient Care Teams Machine Coremaker Relationship Specialty Start Date End Date Enedina Mcguire APRN [address] [place] [address] PCP - General Nurse Practitioner 10/27/24
--- OUTSIDE RECORDS SUMMARY | 2025-03-04 12:02 | XMS_ITS | Encounter Summary ---
Author Organization [facility] Address [address] [place] [address] Care Team Providers Care Reception Centre Manager Name Role Phone Enedina Mcguire NP Primary Care Provider + [phone] Maureen Pantoja RN Unavailable Unavail able Source [...] release of HIV test results or diagnoses. [id number] Reason for Visit * Reason Onset Date Comments Medication Refill 01/21/2025 Encounter Details Date Type Department Care Team (Late st Contact Info) Description 01/21/2025 Refill [facility] Liver Transplant at [address] [address] Harvey Domínguez III, MD [address] [place] [address] Encounter for therapeutic drug monitoring; S/P [...] the past 12 months has th e [employer], gas, oil, or water company threatened [...] documented as of this encounter Care Teams Reception Centre Manager Relationship Specialty Start Date End Date Enedina Mcguire NP [address] [place] [address] PCP - General Internal Medicine 10/05/24 Maureen Pantoja, RN Txp Post Coordinator Transplant Hepatology 10/28/24 documented as of this encounter
--- OUTSIDE RECORDS SUMMARY | 2025-03-04 12:02 | XMS_ITS | Encounter Summary ---
Author Organization [facility] Address [address] [place] [address] Care Team Providers Care Workforce Advisor Name Role Phone Jony Conde MD Primary Care Provider [phone] Lj Tapia CAMPUS ADMINISTRATIVE ASSISTANT Unavailable [phone] Enedina Mcguire APRN Primary Care Provider + Nuria Fall HISTORIAN RESEARCH ASSISTANT Unavailable Unavaila ble Encounter Details Date Type Department Care Team (Late st Contact Info) Description 07/02/2022 Orders Only External Location [address] [place] [address] Provider, External Social History Tobacco Use Types [...] on filedocumented in this encounter Care Teams Workforce Advisor Relationship Specialty Start Date End Date Jony Conde MD [address] [facility] [address] [place], [place] [id number] PCP - General 07/18/22 12/03/22 Enedina Mcguire APRN [address] [place] [address] PCP - General 12/04/22 Lj Tapia APRN [address] [place] [address] Referring Physician Gastroenterology 07/18/22 Nuria Fall LPN [facility] TCM Nurse 07/24/24 08/23/24 documented as of this encounter
--- OUTSIDE RECORDS SUMMARY | 2025-03-04 12:02 | XMS_ITS | Encounter Summary ---
Author Organization [facility] Address [address] [place] [address] Care Team Providers Care Anesthesiologist Assistant Certified Name Role Phone Enedina Mcguire NP Primary Care Provider + [phone] Maureen Pantoja RN Unavailable Unavail able Source [...] release of HIV test results or diagnoses. [id number] Reason for Visit * Reason Onset Date Comments Medication Refill 01/21/2025 Encounter Details Date Type Department Care Team (Late st Contact Info) Description 01/21/2025 Refill [facility] Liver Transplant at [address] [id number] [place] [address] Lydia Sanchez MD [address] [place] [address] Liver/[place] [address] Encounter for therapeutic drug monitoring; S/P liver transplant ([facility]); Hypomagnesemia; Kidney transplant recipient; Hypertension, unspecified type; [...] 01/06/2025 Leisa Juarez MD Next appointment: 02/03/2025 [facility] Last labs: Lab Results Component Value [...] for therapeutic drug monitoring S/P liver transplant ([facility]) Hypomagnesemia Disorders of magnesium metabolism Kidney transplant [...] documented as of this encounter Care Teams Anesthesiologist Assistant Certified Relationship Specialty Start Date End Date Enedina Mcguire NP [address] [place] [address] PCP - General Internal Medicine 10/05/24 Maureen Pantoja RN Txp Post Coordinator Transplant Hepatology 10/28/24 documented as of this encounter
--- OUTSIDE RECORDS SUMMARY | 2025-03-04 12:02 | XMS_ITS | Encounter Summary ---
Author Organization [facility] Address [address] [place] [address] Care Team Providers Care Yarn Skeins Examiner Name Role Phone Enedina Mcguire APRN Primary Care Provider + Reason for Visit * Reason Comments Med Refill Encounter Details Date Type Department Care Team (Late st Contact Info) Description 09/12/2022 Refill [facility] GASTROENTEROLOGY [address] [facility] [address] [place] [address] Lj Tapia APRN [address] [place] [address] Social History Tobacco Use Types Packs/Day Years [...] or training? Not on file Preferred Language Guyanese 07/03/2022 Sex and Gender Information Value Date [...] Visit [facility] INTERNAL MEDICINE [address] [place] [phone] Enedina Mcguire APRN [address] [place] [address] 05/21/2025 12:30 PM EST Office Visit [facility] PAIN MANAGEMENT [address] [address] Vazquez Christie PA-C [address] [facility] [address] [place], [place] [id number] documented as of this encounter Visit Diagnoses Not on filedocumented in this encounter Care Teams Yarn Skeins Examiner Relationship Specialty Start Date End Date Enedina Mcguire APRN [address] [place] [address] PCP - General Nurse Practitioner 10/27/24 documented as of this encounter
--- OUTSIDE RECORDS SUMMARY | 2025-03-04 12:02 | XMS_ITS | Encounter Summary ---
Author Organization Healthcare Address [address] [place] [address] Care Team Providers Care Casino Floor Runner Name Role Phone Jony Conde MD Primary Care Provider [phone] Lj Tapia CHIEF MEDICAL OFFICER Unavailable [phone] Enedina Mcguire CHIEF MEDICAL OFFICER Primary Care Provider + Nuria Fall GERIATRIC PHYSICIAN Unavailable Unavaila ble Encounter Details Date Type Department Care Team (Late st Contact Info) Description 07/04/2022 Orders Only External Location [address] [place] [address] Presley Montes De Oca MD [address] [place] [place] [id number] Social History Tobacco Use Types Packs/Day Years [...] on filedocumented in this encounter Care Teams Casino Floor Runner Relationship Specialty Start Date End Date Jony Conde MD [address] [place] [address] [address] [place], [place] [phone] PCP - General 07/18/22 12/03/22 Enedina Mcguire APRN [address] [place] [address] PCP - General 12/04/22 Lj Tapia APRN [address] [place] [address] [id number] Referring Physician Gastroenterology 07/18/22 Nuria Fall LPN [facility] TCM Nurse 07/24/24 08/23/24 documented as of this encounter
--- OUTSIDE RECORDS SUMMARY | 2025-03-04 12:02 | XMS_ITS | Encounter Summary ---
Author Organization Healthcare Address [address] [place] [address] Care Team Providers Care Senior Engineering Manager Name Role Phone Jony Conde MD Primary Care Provider [phone] Lj Tapia BONDING MACHINE SETTER Unavailable [phone] Enedina Mcguire BONDING MACHINE SETTER Primary Care Provider + Nuria Fall CUFF MAKER Unavailable Unavaila ble Encounter Details Date Type Department Care Team (Late st Contact Info) Description 07/03/2022 Orders Only External Location [address] [place] [address] Presley Montes De Oca MD [address] [place] [place] [id number] Social History Tobacco Use Types Packs/Day Years [...] filedocumented in this encounter Care Teams Senior Engineering Manager Relationship Specialty Start Date End Date Jony Conde MD [address] [place] [address] [address] [place] [address] PCP - General 07/18/22 12/03/22 Enedina Mcguire APRN [address] [place] [address] PCP - General 12/04/22 Lj Tapia APRN [facility] [place], [place] [phone] Referring Physician Gastroenterology 07/18/22 Nuria Fall LPN [facility] TCM Nurse 07/24/24 08/23/24 documented as of this encounter
--- OUTSIDE RECORDS SUMMARY | 2025-03-04 12:02 | XMS_ITS | Clinical Summary ---
Author Organization Healthcare Address [address] [place] [address] Care Team Providers Care Hip Hop Artist Name Role Phone Lj Tapia Rohini RICKS Unavailable [phone] Enedina Mcguire APRN Primary Care Provider + [...] (03/19/2024): boat NADIYA (acute kidney injury) 08/30/2022 Immunizations Immunization Administration Dates Next Due Hep [...] answer 07/14/2024 How often do you attend up health system or tenriism services? Patient unable to answer 07/14/2024 Do you belong to any clubs o r organizations such as scientology groups, unions, fraternal or athletic groups, or [...] Score 2 09/29/2024 [facility] - [...] drink first t deborah in the morning (EYE-PICK UP MAN) to steady your nerves or to get rid of a hangover? 0 07/19/2024 CAGE Questionnaire Score 2 025 Utilities Answer Date Recorded In the past 12 months has th [employer], gas, oil, or water company threatened to [...] 2 - 13+ 2-dose series) 10/11/2010 09/13/2010 [id number] Vaccine (4 - 2024- season) 2025 03/17/2021, 07/25/2020, 06/27/2020 [...] this topic Medical Devices Implanted Type Area Airport Tower Controller Device Identifier Shelf Expiration Date Model / Serial / Lot Concerto Bushwood Coil-07/03/2022 Implanted:06/15 by Timmy Brunner MD (Quantity not on file) Coil Abdomen Description:Multiple Coil Co ncerto Pgla Bushwood Detach COILS implanted on 07/03/2022 by Timmy Brunner MD at [facility]--info can be found in Care Everywhere for [facility] as of 11/15/23 Dona Coil-07/03/2022 Implanted:06/15 by Timmy Brunner MD (Quantity not on file) Coil Abdomen [employer] Description:Coil Emb Dona 3.7/Implanted: Qty: 1 on 07/03/2022 by Timmy Brunner MD at [facility] Plate Plate N/A: Neck Plug Vasc Anton Emb Amplatzer Implanted:06/15 by Timmy Brunner MD (Quantity not on file) Plug Other Vein / / [id number] Description:Plug Vasc Anton Em b Ampltz .027 [id number] - [id number] Implanted: Qty: 1 on 07/03/2022 by Timmy Brunner MD at [facility] Stent Gastro Panc 5fr 5cm - [id number] Implanted:Qty: 1 on 11/20/2023 by Devang Mcghee, RN at [facility] Pancreas [employer]-[id number] 08/13/2026 [id number] / / [id number] Procedures Procedure Name Priority Date/Time Associated Diagnosis [...] Reactive Non Reactive 07/14/2024 5:31 PM EST [facility] Comment:Screening for HIV 1 & 2 antibodies, and P24 antigen is NONREACTIVE. No confirmatory testing is required. Blood Venous blood specimen / Unknown Venipuncture / Unknown 07/14/2024 4:31 PM EST 07/14/2024 4:56 PM EST Laureano Salinas APRN, [facility] BLOOD ORDERA BLES Final Result Performing Organization Address City/[facility] Co de Phone Number HEALTHCARE [facility] [address] [place] [address] * Hepatitis C Antibody (07/14/2024 4:31 PM EST) [facility] Signature Hepatitis C Antibody Negative Negative 07/14/2024 5:[address] [facility] Blood Venous blood specimen / Unknown Venipuncture / Unknown 07/14/2024 4:31 PM EST 07/14/2024 4:54 PM EST Laureano Salinas APRN, [facility] BLOOD ORDERA BLES Final Result Performing Organization Address City/[facility] de Phone Number [facility] [address] [place] [address] from Last 3 Months or Most Recently Relevant to Health Maintenance Insurance [place] [address] [employer] Advance Directives * Full Code (Latest Code Status on File) Date Activated Date Inactivated Comments 07/11/2024 11:04 PM 07/23/2024 6:27 PM Question Answer Comments Patient has decision-making capacity? Yes * Full Code Date Activated Date Inactivated Comments 11/14/2023 10:15 PM 11/27/2023 9:08 PM Question Answer Comments Patient has decision-making capacity? Yes Care Teams Hip Hop Artist Relationship Specialty Start Date End Date Enedina Mcguire APRN [address] [place] [address] PCP - General 12/04/22 Lj Tapia APRN [address] [place] [address] Referring Physician Gastroenterology 07/18/22
--- OUTSIDE RECORDS SUMMARY | 2025-03-04 12:03 | XMS_ITS | Encounter Summary ---
Author Organization [facility] Address [address] [place] [address] Care Team Providers Care House Rn Name Role Phone Enedina Mcguire NP Primary Care Provider + [phone] Maureen Pantoja RN Unavailable Unavail able Source [...] release of HIV test results or diagnoses. [id number] Health Encounter Details Date Type Department Care Team (Late st Contact Info) Description 01/27/2025 Telephone [facility] Liver Transplant at [address] [address] Marlene Ro MA Social History [...] Recorded In the past 12 months has [employer], gas, oil, or water [employer] threatened to shut off services [...] AM EDT Called and spoke to Gladys, bolt man guard manager, and taran Rosario about his 1 [...] as of this encounter Care Teams House Rn Relationship Specialty Start Date End Date Enedina Mcguire NP [address] [place] [address] PCP - General Internal Medicine 10/05/24 Maureen Pantoja, RN Txp Post Coordinator Transplant Hepatology 10/28/24 documented as of this encounter
--- OUTSIDE RECORDS SUMMARY | 2025-03-04 12:04 | XMS_ITS | Encounter Summary ---
Author Organization [facility] Address [address] [place] [address] Care Team Providers Care Pharmacist Assistant Name Role Phone Enedina Mcguire APRN Primary Care Provider + Reason for Visit * Reason Onset Date Comments Appointment 01/08/2025 Encounter Details Date Type Department Care Team (Late st Contact Info) Description 01/08/2025 Telephone [facility]IN MA[facility] [address] [phone] Vazquez Christie PA-C [address] [place] [address] Appointment Social History Tobacco Use Types Packs/Day [...] Recorded In the past 12 months has [employer], gas, oil, or water [email or web address] threatened to shut off services in your [...] 0 10/02/2022 [facility] - Occupational Stress Questionnaire Answer Date [...] GED or equivalent No 07/09/2024 Preferred Language Vietnamese 07/09/2024 PHQ-2 Answer Date Recorded Patient Health [...] to patient: Self Best call back number: [phone] Chief complaint: C2/3 and C6/7 Medial branch [...] to patient: Self Best call back number: [phone] Patient is needing: PATIENT IS RETURNING A PHONE CALL TO [facility] - documented in this encounter Plan of Treatment Upcoming Encounters Date Type Department Care Team (Late st Contact Info) Description 05/18/2025 2:30 PM EST Office Visit [facility] INTERNAL MEDICINE [address] [place] [address] Enedina Mcguire APRN [address] [place] [phone] 05/21/2025 12:30 PM EST Office Visit [facility] PAIN MANAGEMENT [address] [facility] [address] [place] [address] Vazquez Christie PA-C [address] [place] [address] [address] [place] [address] documented as of this encounter Visit Diagnoses Not on filedocumented in this encounter Additional Health Concerns Assessment Noted Time PHQ-2 Depression Total Score: 1 12/31/19 24 3:25 PM EDT documented as of this encounter Care Teams Pharmacist Assistant Relationship Specialty Start Date End Date Enedina Mcguire APRN [address] [place] [address] [id number] PCP - General Nurse Practitioner 10/27/24 documented as of this encounter
--- OUTSIDE RECORDS SUMMARY | 2025-03-04 12:04 | XMS_ITS | Encounter Summary ---
Author Organization [facility] Address [address] [place] [address] Care Team Providers Care Webmethods Consultant Name Role Phone Enedina Mcguire NP Primary Care Provider + [phone] Maureen Pantoja RN Unavailable Unavail able Source [...] release of HIV test results or diagnoses. [id number] Reason for Visit * Reason Onset Date Comments Medication Refill 01/21/2025 Encounter Details Date Type Department Care Team (Late st Contact Info) Description 01/21/2025 Refill [facility] Liver Transplant at [address] [place] [address] Rose Montelongo MD [facility] [address] [place], [place] [id number] Social History Tobacco Use Types Packs/Day Years Used Date Smoking Tobacco: Former Cigarettes Smokeless Tobacco: Current Alcohol Use Standard Drinks/Week Comments Yes 0 (1 standard drink = 0.6 oz pure alcohol) History of alcohol abuse, reports no use in 3 week- typically endorses use as 4 glasses of wine a days Utilities Answer Date Recorded In the past 12 months has [employer], gas, oil, or water [employer] threatened to shut off services [...] documented as of this encounter Care Teams Webmethods Consultant Relationship Specialty Start Date End Date Enedina Mcguire NP [address] [place] [address] PCP - General Internal Medicine 10/05/24 Maureen Pantoja, ЮЛИЯ Txp Post Coordinator Transplant Hepatology 10/28/24 documented as of this encounter
--- OUTSIDE RECORDS SUMMARY | 2025-03-04 12:04 | XMS_ITS | Encounter Summary ---
Author Organization [facility] Address [address] [place] [address] Care Team Providers Care Billing Representative Name Role Phone Enedina Mcguire NP Primary Care Provider + [phone] Maureen Pantoja RN Unavailable Unavail able Source [...] release of HIV test results or diagnoses. [id number] Reason for Visit * Reason Comments Results Encounter Details Date Type Department Care Team (Late st Contact Info) Description 01/23/2025 Telephone [facility] Liver Transplant at [address] [address] Maureen Pantoja, RN Results Social [...] Recorded In the past 12 months has [employer], gas, oil, or water company threatened to [...] that he is on his way to [facility] ED. Message routed to Inpatient Txp Team. * Maureen Pantoja RN - 01/27/2025 2:28 PM EDT Reviewed with Dr. Alonzo who recommends that patient go to ED. Local [place], but would prefer [facility] to do full infectious work-up in context of febrile neutropenia. Spoke with patient again. Patient very reluctant to go to ED. Advised [place] to go to local hospital, but that he needs further testing to rule out infection and get treatment if needed. Patient agreeable to going to local hospital. Patient requested Sient message stating what to tell [facility] ED. Message sent. * Maureen Pantoja RN [...] 01/27/2025 10:25 AM EDT FK 11.3 Received TTA Marine[employer] message from patient's that patient began feeling [...] documented as of this encounter Care Teams Billing Representative Relationship Specialty Start Date End Date Enedina Mcguire NP [address] [place] [address] PCP - General Internal Medicine 10/05/24 Maureen Pantoja, RN Txp Post Coordinator Transplant Hepatology 10/28/24 documented as of this encounter
--- OUTSIDE RECORDS SUMMARY | 2025-03-04 12:04 | XMS_ITS | Clinical Summary ---
Author Organization [facility] Address [address] [place] [id number] Care Team Providers Care Coordinator Cardiopulmonary Services Name Role Phone Enedina Mcguire NP Primary Care Provider + [phone] Maureen Pantoja RN Unavailable Unavail able Chris Orosco MD Unavailable [phone] Source Comments This information has been disclosed [...] therelease of HIV test results or diagnoses. [id number] Allergies Active Allergy Reactions Criticality Noted [...] a week. 4 capsule 2 025 Active NIFEdipine (PROCARDIA-XL) 30 MG (OSM) 24 hr tabletIndications: Encounter for therapeutic drug monitoring,S/P liver transplant ([facility]),Hypomagn esemia,Kidney transplant recipient,Hyperten kevin, unspecified type,Gastroesophag eal reflux disease, unspecified whether esophagitis present Take 1 tablet by mouth once daily 30 tablet 2 025 Active naltrexone (DEPADE) 50 mg tablet Take 1 tablet (50 mg total) by mouth daily. 30 tablet 5 025 Active methocarbamoL (ROBAXIN) 500 MG tablet Take 2 tablets (1,000 mg total) by mouth 3 times a day. 120 tablet 01/31/20 25 11:36 AM EDT 025 Active predniSONE (DELTASONE) 5 MG tablet Take 2 tablets (10 mg total) by mouth daily. 60 tablet 025 Active cyclobenzaprine (FLEXERIL) 5 MG tablet Take 1 tablet (5 mg total) by mouth 3 times a day. 90 tablet 01/31/20 25 11:36 AM EDT 025 Active FLUoxetine (PROZAC) 20 MG capsule Take 1 capsule (20 mg total) by mouth daily. 30 capsule 1 025 Active gabapentin (NEURONTIN) 300 MG capsuleIndications :Neuropathic Pain,alcoholism Take 1 capsule (300 mg total) by mouth 3 times a day. Work on decreasing to one capsule daily. Indications: Neuropathic Pain, alcoholism 270 capsule 1 025 Active famotidine (PEPCID) 20 MG tabletIndications: Encounter for therapeutic drug monitoring,S/P liver transplant ([facility]),Hypomagn esemia,Kidney transplant recipient,Hyperten kevin, unspecified type,Gastroesophag eal reflux disease, unspecified whether esophagitis present Take 1 tablet by mouth twice daily 60 tablet 5 025 Active testosterone cypionate 200 mg/mL Kit Inject into the muscle. 021 Active organ preservation soln no.3 125 mEq/L IrSl 1,000 mL with heparin (porcine) 5,000 unit/mL Soln 5,000 Units Irrigate with 5,000 Units as directed once. Active mycophenolate (CELLCEPT) 250 mg capsuleIndications :Encounter for therapeutic drug monitoring,S/P liver transplant ([facility]),Hypomagn esemia,Kidney transplant recipient,Hyperten kevin, unspecified type,Gastroesophag eal reflux disease, unspecified whether esophagitis present Take 1 capsule (250 mg total) by mouth 2 times a day. 60 capsule 5 Active tacrolimus (PROGRAF) 1 MG capsuleIndications :Prevention of Kidney Transplant Rejection,Preventi on of Liver Transplant Rejection Take 6 capsules (6 mg total) by mouth 2 times a day. Indications: Prevention of Kidney Transplant Rejection, Prevention of Liver Transplant Rejection 360 capsule 5 Active magnesium chloride (SLOW MAG) 71.5 mg TbECIndications:hy pomagnesemia Take 2 tablets (143 mg total) by mouth 3 times a day. Indications: hypomagnesemia 180 tablet 2 025 02/12 FLUoxetine (PROZAC) 20 MG capsule Take 1 capsule (20 mg total) by mouth daily. 30 capsule 2 025 02/09 Discontinued famotidine (PEPCID) 20 MG tabletIndications: Encounter for therapeutic drug monitoring,S/P liver transplant ([facility]),Hypomagn esemia,Kidney transplant recipient,Hyperten kevin, unspecified type,Gastroesophag eal reflux disease, unspecified whether esophagitis present Take 1 tablet (20 mg total) by mouth 2 times a day. 60 tablet 2 025 02/26 Discontinued mycophenolate (CELLCEPT) 250 mg capsuleIndications :Encounter for therapeutic drug monitoring,S/P liver transplant ([facility]),Hypomagn esemia,Kidney transplant recipient,Hyperten kevin, unspecified type,Gastroesophag eal reflux disease, unspecified whether esophagitis present Take 2 capsules (500 mg total) by mouth 2 times a day. 120 capsule 5 025 02/26 Discontinued( Refill / Reorder) tacrolimus (PROGRAF) 1 MG capsuleIndications :Prevention of Kidney Transplant Rejection,Preventi on of Liver Transplant Rejection Take 5 capsules (5 mg total) by mouth every morning AND 6 capsules (6 mg total) every evening. Use as directed. Indications: Prevention of Kidney Transplant Rejection, Prevention of Liver Transplant Rejection. 330 capsule 5 02/26 Discontinued( Refill / Reorder) gabapentin (NEURONTIN) 100 MG capsuleIndications :Encounter for therapeutic drug monitoring,S/P liver transplant ([facility]),Hypomagn esemia,Kidney transplant recipient,Hyperten kevin, unspecified type,Gastroesophag eal reflux disease, unspecified whether esophagitis present Take 1 capsule (100 mg total) by mouth 2 times a day. Work on decreasing to one capsule daily. 60 capsule 02/12 Discontinued( Refill / Reorder) acetaminophen (TYLENOL) 325 MG tablet Take 3 tablets (975 mg total) by mouth every 8 hours as needed 100 tablet 03/01 fidaxomicin (DIFICID) 200 mg Tab tablet Take 1 tablet (200 mg total) by mouth 2 times a day for 8 days. 16 tablet 01/31/20 11:36 AM EDT 02/12 Discontinued lidocaine (LIDODERM) 5 % Place 1 patch onto the skin daily. Apply patch for 12 hours and then remove patch and leave off for 12 hours. 30 patch 01/31/20 11:36 AM EDT 02/12 Discontinued Active Problems [...] SBP, s/p CTX x5d; will cont senior care ppx with Cipro 500mg daily - [...] Encounters Date Type Department Care Team Description 03/02/2025 Refill [facility] [address] [place] [phone] Feliciano Gomez, EZEKIEL 03/02/2025 Telephone [facility] Liver Transplant at [address] [place] [address] Marlene Ro MA 02/26/2025 Telephone [facility] Liver Transplant at [address] [place] [phone] Maureen Pantoja, ЮЛИЯ Results; Medication Dose Change 02/26/2025 Chart Note [facility] Liver Transplant at [address] [place] [phone] Marlene Ro MA 02/24 Labs entered from [facility] 02/25/2025 10:50 AM EDT Office Visit [facility] Kidney Transplant at [address] [place] [address] Bruno Gonzalez MD Kidney transplant recipient (Primary Dx); Neck pain with history of cervical spinal surgery; S/P liver transplant ([facility]) 02/25/2025 Refill [facility] Liver Transplant at [address] [place] [phone] Lydia Sanchez MD Encounter for therapeutic drug monitoring; S/P liver transplant ([facility]); Hypomagnesemia; Kidney transplant recipient; Hypertension, unspecified type; Gastroesophageal reflux disease, unspecified whether esophagitis present 02/23/2025 Chart Note [facility] Liver Transplant at [address] [place] [phone] Marlene Ro MA 02/18 Labs entered from 02/23/2025 Telephone [facility] Liver Transplant at [address] [place] [phone] Marlene Ro MA 02/17/2025 Telephone [facility] Liver Transplant at [address] [place] [phone] Marlene Ro MA 02/13/2025 Telephone [facility] Liver Transplant at [address] [place] [phone] Marisela Martinez MA Results 02/12/2025 10:50 AM EDT Office Visit [facility] Liver Transplant at [address] [place] [phone] Chris Orosco MD Liver transplant recipient ([facility]) (Primary Dx); History of systemic steroid therapy; Kidney transplant recipient; Immunosuppressive management encounter following liver transplant ([facility]); Encounter for monitoring tacrolimus therapy; Vitamin D deficiency; Encounter for therapeutic drug monitoring; S/P liver transplant ([facility]); Hypomagnesemia; Hypertension, unspecified type; Gastroesophageal reflux disease, unspecified whether esophagitis present; Alcohol use disorder; Immunosuppression ([facility]); Viral disease exposure 02/12/2025 Social Work [facility] Liver Transplant at [address] [place] [address] Kaylin Willard MSW 02/12/2025 Telephone [facility] Liver Transplant at [address] [place] [phone] Maureen Pantoja, ЮЛИЯ Results 02/10/2025 Chart Note [facility] Liver Transplant at [address] [place] [phone] Marlene Ro MA 02/10 Labs entered from [facility] 02/09/2025 Chart Note [facility] Liver Transplant at [address] [place] [address] Marisela Martinez MA 02/09/2025 Telephone [facility] Liver Transplant at [address] [place] [phone] Marisela Martinez MA 02/08/2025 Refill [facility] Liver Transplant at [address] [place] [phone] Harvey Domínguez III, MD 02/04/2025 Telephone [facility] Liver Transplant at [address] [place] [phone] Marlene Ro MA 02/03/2025 Telephone [facility] Liver Transplant at [address] [place] [phone] Mitzy Schneider MA Results 02/03/2025 Telephone [facility] Liver Transplant at [address] [place] [phone] Marlene Ro MA 02/03/2025 Chart Note [facility] Liver Transplant at [address] [place] [phone] Marlene Ro MA 02/03 Labs entered from [facility] 01/27/2025 6:28 PM EDT - 01/30/2025 2:25 PM EDT Hospital Encounter [facility] [address] [address] [place] [phone] Sunny Wei MD Haugen, Christine, MD Diarrhea of presumed infectious origin (Primary Dx); Immunosuppression ([facility]) Discharge Disposition: Home or Self Care WITHOUT Home Care Services 01/27/2025 Travel 01/27/2025 Telephone [facility] Liver Transplant at [address] [phone] Marlene Ro MA 01/26/2025 Telephone [facility] Liver Transplant at [address] [phone] Maureen Pantoja, youth services specialist Management 01/23/2025 Telephone [facility] Liver Transplant at [address] [phone] Maureen Pantoja, RN Results 01/21/2025 Refill [facility] Liver Transplant at [address] [phone] Rose Montelongo MD 01/21/2025 Refill [facility] Liver Transplant at [address] [phone] Lydia Sanchez MD Encounter for therapeutic drug monitoring; S/P liver transplant ([facility]); Hypomagnesemia; Kidney transplant recipient; Hypertension, unspecified type; Gastroesophageal reflux disease, unspecified whether esophagitis present 01/21/2025 Refill [facility] Liver Transplant at [address] [phone] Harvey Domínguez III, MD Encounter for therapeutic drug monitoring; S/P liver transplant ([facility]); Hypomagnesemia; Kidney transplant recipient; Hypertension, unspecified type; Gastroesophageal reflux disease, unspecified whether esophagitis present 01/20/2025 Chart Note [facility] Liver Transplant at [address] [phone] Marlene Ro MA 01/20 Labs entered from [facility] 01/19/2025 Telephone [facility] Liver Transplant at [address] [place] [phone] Gladis Chisholm MA Critical Lab Results 01/17/2025 Refill [facility] Liver Transplant at [address] [place] [address] Harvey Domínguez III, MD Encounter for therapeutic drug monitoring; S/P liver transplant ([facility]); Hypomagnesemia; Kidney transplant recipient; Hypertension, unspecified type; Gastroesophageal reflux disease, unspecified whether esophagitis present 01/16/2025 Telephone [facility] Liver Transplant at [address] [place] [phone] Maureen Pantoja RN Results 01/15/2025 Chart Note [facility] Liver Transplant at [address] [place] [phone] Marlene Ro MA 01/14 Labs entered from [facility] 01/15/2025 Telephone [facility] Liver Transplant at [address] [place] [phone] Marlene Ro MA 01/15/2025 Telephone [facility] Liver Transplant at [address] [place] [phone] Kaylin Willard MSW 01/14/2025 Telephone [facility] Liver Transplant at [address] [place] [phone] Marlene Ro MA 01/09/2025 Chart Note [facility] Liver Transplant at [address] [place] [phone] Marlene Ro MA 01/09 Labs entered from 01/09/2025 Telephone [facility] Liver Transplant at [address] [place] [address] Marisela Martinez MA Results 01/08/2025 Telephone [facility] Liver Transplant at [address] [place] [address] Maureen Pantoja, RN Results 01/06/2025 9:30 AM EDT Office Visit [facility] Liver Transplant at [address] [place] [address] Leisa Juarez MD Kidney transplant recipient (Primary Dx); Hypomagnesemia; Hyperphosphatemia; Immunosuppression ([facility]); Viral disease exposure; Hypertension, unspecified type 01/06/2025 8:20 AM EDT Office Visit [facility] Liver Transplant at [address] [place] [address] Cosmo Pacheco MD Paci, Philippe, MD S/P liver transplant ([facility]) (Primary Dx); Immunosuppression ([facility]); Kidney transplant recipient; Alcohol use disorder 01/06/2025 Social Work [facility] Liver Transplant at [address] [place] [address] Kaylin Willard MSW 01/05/2025 Chart Note [facility] Liver Transplant at [address] [place] [address] Marlene Ro MA 01/05 Labs entered from [facility] 01/05/2025 Telephone [facility] Liver Transplant at [address] [place] [address] Marisela Martinez MA Critical Lab Results 01/05/2025 Telephone [facility] Liver Transplant at [address] [place] [address] Maureen Pantoja, ЮЛИЯ Results 12/31/2024 Chart Note [facility] Liver Transplant at [address] [place] [address] Marlene Ro MA 12/31 Labs entered from [facility] 12/29/2024 Telephone [facility] Liver Transplant at [address] [place] [address] Maureen Pantoja, ЮЛИЯ Results 12/23/2024 Chart Note [facility] Liver Transplant at [address] [address] Maureen Pantoja, fan installer results from 12/23/24 entered from . 12/22/2024 Telephone [facility] Liver Transplant at [address] [place] [address] Maureen Pantoja, ЮЛИЯ Results; Medication Dose Change 12/21/2024 Refill [facility] Liver Transplant at [address] [phone] Lydia Sanchez MD Encounter for therapeutic drug monitoring; S/P liver transplant ([facility]); Hypomagnesemia; Kidney transplant recipient; Hypertension, unspecified type; Gastroesophageal reflux disease, unspecified whether esophagitis present 12/18/2024 2:00 PM EDT Office Visit [facility] Psychiatry Transplant at [address] [place] [address] Lizeth Warren PsyD Alcohol use disorder (Primary Dx); PTSD (post-traumatic stress disorder) 12/18/2024 Refill [facility] Liver Transplant at [address] [place] [address] Maureen Pantoja, ЮЛИЯ Encounter for therapeutic drug monitoring; S/P liver transplant ([facility]); Hypomagnesemia; Kidney transplant recipient; Hypertension, unspecified type; Gastroesophageal reflux disease, unspecified whether esophagitis present 12/17/2024 Chart Note [facility] Liver Transplant at [address] [place] [address] Marlene Ro MA 12/16 Labs entered 12/12/2024 Telephone [facility] Liver Transplant at [address] [address] Maureen Pantoja, ЮЛИЯ Results 12/09/2024 11:45 AM EDT Office Visit [facility] Psychiatry Transplant at [address] [phone] Rebekah Linares [facility] Alcohol use disorder (Primary Dx) 12/09/2024 10:20 AM EDT Office Visit [facility] Liver Transplant at [address] [address] Harvey Domínguez III, MD Encounter for therapeutic drug monitoring (Primary Dx); S/P liver transplant ([facility]); Hypomagnesemia; Kidney transplant recipient; Hypertension, unspecified type; Gastroesophageal reflux disease, unspecified whether esophagitis present 12/09/2024 9:50 AM EDT Office Visit [facility] Liver Transplant at [address] [address] Leisa Juarez MD Kidney transplant recipient (Primary Dx); Immunosuppressive management encounter following liver transplant ([facility]); Hypomagnesemia; S/P liver transplant ([facility]); Hypertension, unspecified type; Hyperparathyroidism ([facility]) 12/09/2024 Social Work [facility] Liver Transplant at [address] [place] [address] Kaylin Willard MSW 12/09/2024 Orders Only [facility] at [address] [facility] [address] [place] [address] Maureen Pantoja, ЮЛИЯ 12/09/2024 Orders Only [facility] Liver Transplant at [address] [place] [address] Maureen Pantoja, RN Kidney transplant recipient (Primary Dx); Liver transplant recipient (CMS-HCC); Viral disease exposure; Immunosuppression ([facility]) 12/09/2024 Telephone [facility] Liver Transplant at [address] [place] [address] Mitzy Schneider MA 12/09/2024 Chart Note [facility] Liver Transplant at [address] [place] [address] Marlene Ro MA 12/04/2024 Telephone [facility] Liver Transplant at [address] [place] [address] Maureen Pantoja, ЮЛИЯ Results 12/04/2024 Chart Note [facility] Liver Transplant at [address] [place] [address] Marlene Ro MA FK Pending-12/0412/04/2024 Telephone [facility] Liver Transplant at [address] [place] [address] Kaylin Willard, NUBIA 12/04/2024 Telephone [facility] Liver Transplant at [address] [place] [address] Marlene Ro MA 12/03/2024 Chart Note [facility] at [address] [facility] [address] [place] [address] Marlene Ro MA 12/02/2024 Telephone [facility] at [facility] [address] [facility] [address] [place] [address] Mitzy Schneider MA from Last 3 Months Social History [...] as 4 glasses of wine a days [employer] Answer Date Recorded In the past 12 months has th e [employer], gas, oil, or water company threatened to [...] Pulse 104 02/25/2025 11:02 AM EDT Temperature 36.4 C (97.6 F) 02/12/2025 10:56 AM EDT Respiratory Rate 16 02/25/2025 11:02 AM EDT Oxygen Saturation 100% 02/25/2025 11:02 AM EDT Inhaled Oxygen Concentration 100% 02/25/2025 1 1:02 AM EDT Weight 109.8 kg (242 lb) 02/25/2025 11:02 AM EDT Height 193 cm (6' 4 ) 02/25/2025 11:02 AM EDT Body Mass Index 29.46 02/25/2025 11:02 AM EDT Plan of Treatment Health Maintenance [...] 10/25/2024, 10/05/2024, Additional history exists Renal Function/GFR 02/24/2026 02/24/2025, 1 , 02/10/2025, Additional history exists Immunization: DTaP/Tdap/Td ( 3 - Td or Tdap) 06/03/2028 06/03/2018, 09/13/2010 Hepatitis C Screening (MyChart) Completed 10/25/2024, 10/07/2024, 10/06/2024, Additional history exists HIV Screening Completed 11/25/2024, 10/12, 10/07/2024 Procedures Procedure Name Priority Date/Time Associated Diagnosis Comments TACROLIMUS LEVEL Routine 02/24/2025 1:03 PM EDT MAGNESIUM Routine 02/24/2025 1:03 PM EDT RENAL FUNCTION PANEL W/O EGFR Routine 02/24/2025 1:03 PM EDT CREATININE, URINE, RANDOM Routine 2024 1:03 PM EDT URINALYSIS W/RFL TO MICROSCOPIC Routine 02/24/2025 1:03 PM EDT CBC AND DIFFERENTIAL Routine 02/24/2025 1:03 PM EDT URINE PROTEIN, TOTAL, RANDOM (W/O CREATININE) Routine 02/24/2025 1:03 PM EDT HEPATIC FUNCTION PANEL Routine 1:03 PM EDT URINE CULTURE Routine 02/24/2025 1:03 PM EDT PHATIDYLETHANOL (PETH) Routine 10:34 AM EDT MAGNESIUM Routine 02/18/2025 10:34 [...] Routine 9:30 PM EDT UPPER RESPIRATORY VIRAL/BACTERIAL PANEL-BLADE BONER ONLY Routine 01/27/2025 9:30 PM EDT LACTIC [...] S Routine 01/27/2025 8:20 PM EDT FUNGITELL TYLA-L-JITPDK Routine 01/28/20 8:20 PM EDT KATIE SCHAFER [...] LATERAL TAMIR 01/28/20 25 7:02 PM EDT TACROLIMUS LEVEL Routine 01/20/2025 [...] URINE CULTURE Routine 12/02/2024 8:01 AM EDT HIV-1 RNA, QUANTITATIVE, PCR Routine 11/25/2024 8:42 AM EDT S/P liver transplant (CMS-HCC) Immunosuppression ([facility]) Viral disease exposure HEPATITIS C ANTIBODY STAT 10/25/2024 10:17 PM EDT TSH Routine 10/07/2024 6:37 PM EDT from Last 3 Months or Most Recently Relevant to Health Maintenance Results * Urine Protein, Tot, Random (w/o Creat) (02/24/2025 1:03 PM EDT) Only the most recent of11 resultswithin the time period is included. Total Protein, Ur 63.0 Urine Narrative Resulting Agency Comment [facility] [place] Result [facility] Provider URINE ORDERABLES Final Re sult * Hepatic Function Panel (02/24/2025 1:03 PM EDT) Only the most recent of18 resultswithin the time period is included. Bilirubin, Direct 0.5 Bilirubin, Indirect 0.4 Alkaline Phosphatase 184 ALT 52 AST 71 Total Bilirubin 0.9 Total Protein 6.8 Plasma Narrative Resulting Agency [facility] LAB BLOOD ORDERABLES Denisse l Result * Tacrolimus level (02/24/2025 1:03 PM EDT) Only the most recent of16 resultswithin the time period is included. Tacrolimus Lvl 7.1 6 - 15 ng/mL Whole Blood Result [facility] [facility] Provider LAB BLOOD ORDERABLES Denisse l Result * Creatinine, urine, random (02/24/2025 1:03 PM EDT) Only the most recent of11 resultswithin the time period is included. Creatinine, Urine 96 Urine Narrative Resulting Agency Comment [facility] Provider URINE ORDERABLES Final Re sult * (ABNORMAL) Urinalysis w/Rfl to Microscopic (02/24/2025 1:03 PM EDT) Only the most recent of11 resultswithin the time period is included. Glucose, UA Negative Negative Ketones, UA Negative Negative Blood, UA Negative Negative Bilirubin, UA Negative Negative Urobilinogen, UA Normal Normal Protein, UA 1+(A) Negative pH, UA 6.0 4.5 - 8.0 Specific [place], UA 1.020 1.005 - 1.030 Clarity, UA Clear Clear Color, UA Yellow Light Yellow, Yellow Urine Narrative Resulting Agency Comment [facility] Result [facility] Provider URINE ORDERABLES Final Re sult * (ABNORMAL) CBC and differential (02/24/2025 1:03 PM EDT) Only the most recent of15 [...] 7.5 10^3/mL Blood Narrative Resulting Agency Comment [facility] Provider LAB BLOOD ORDERABLES Denisse l Result * Urine culture (02/24/2025 1:03 PM EDT) Only the most recent of5 resultswithin the time period is included. Pathologist [facility] Urine Culture, Comprehensive no growth URINE SPECIMEN / Unknown Narrative Resulting Agency Comment [facility] Result [facility] Provider MICROBIOLOGY - GENERAL OR DERABLES Final Result * (ABNORMAL) Magnesium (02/24/2025 1:03 PM EDT) Only the most recent of16 resultswithin the time period is included. Pathologist [facility] Magnesium 1.2(A) 1.6 - 2.4 mg/dL Plasma Narrative Resulting Agency Comment [facility] Result [facility] Provider LAB BLOOD ORDERABLES Denisse l Result * (ABNORMAL) Renal Function Panel w/o EGFR (02/24/2025 1:03 PM EDT) Only the most recent of14 resultswithin the time period is included. Pathologist [facility] Glucose 121 BUN 18 CO2 26(A) 13 - 22 mmol/L Creatinine 1.00 Potassium 4.1 Sodium 140 Chloride 99 Phosphorus 4.6 2.5 - 4.9 mg/dL Calcium 9.4 EGFR 82 mg/dL Albumin 4.7 3.5 - 5.0 g/dL Blood Narrative Resulting Agency Comment [facility] Result [facility] LAB BLOOD ORDERABLES Denisse l Result * Phatidylethanol (PEth) (02/18/2025 10:34 AM EDT) Only the most recent of4 resultswithin the time period is included. Pathologist [facility] Phosphatidylethanol (PEth) Positive 371 Whole Blood Result [facility] Provider LAB BLOOD ORDERABLES Denisse l Result * Cytomegalovirus DNA, Quant, RT PCR (02/10/2025 9:33 AM EDT) Only the most recent of3 resultswithin the time period is included. Pathologist [facility] CMV Quant DNA PCR (Plasma) Negative Plasma [facility] Provider MD LAB BLOOD ORDERABLES Denisse l Result * BK Virus Quantitative by PCR, Blood (02/10/2025 9:33 AM EDT) Only the most recent of4 resultswithin the time period is included. Pathologist [facility] BK Virus Quant PCR PL Negative Plasma [facility] Provider MD LAB BLOOD ORDERABLES Denisse l Result * Clostridium difficile DNA Amplification (02/03/2025 11:04 AM EDT) Only the most recent of2 resultswithin the time period is included. Pathologist [facility] Clost. Diff DNA Amp. Positive Norovirus Detected FECES / Unknown [facility] Provider MD BODY FLUIDS AND STOOLS OR DERABLES Edited Result - Final * (ABNORMAL) Differential (01/30/2025 7:41 AM EDT) Only the most recent of2 resultswithin the time period is included. [facility] Neutrophils Relative 39.1(L) 40.0 - 80.0 % 01/30/2025 8:09 AM EDT [facility] Lymphocytes Relative 43.8 15.0 - 45.0 % 01/30/2025 8:09 AM EDT [facility] Monocytes Relative 14.2(H) 0.0 - 12.0 % 01/30/2025 8:09 AM EDT [facility] Eosinophils Relative 2.2 0.0 - 8.0 % 01/30/2025 8:09 AM EDT [facility] Basophils Relative 0.7 0.0 - 1.0 % 01/30/2025 8:09 AM EDT [facility] nRBC 0 0 - 0 /100 WBC 01/30/2025 8:09 AM EDT [facility] Neutrophils Absolute 782(L) 1,520 - 8,640 /uL 01/30/2025 8:09 AM EDT [facility] Lymphocytes Absolute 876 570 - 4,860 /uL 01/30/2025 8:09 AM EDT [facility] Monocytes Absolute 284 0 - 1,296 /uL 01/30/2025 8:09 AM EDT [facility] Eosinophils Absolute 44 0 - 864 /uL 01/30/2025 8:09 AM EDT [facility] Basophils Absolute 14 0 - 108 /uL 01/30/2025 8:09 AM EDT [facility] Whole Blood 01/30/2025 7:41 AM EDT 01/30/2025 8:01 AM EDT Feliciano Jose Jason [facility] LAB BLOOD ORDERABLES Final Resu lt [facility] [address] [place] [address], [facility] * (ABNORMAL) Renal Function Panel w/EGFR (01/30/2025 5:51 AM EDT) Only the most recent of3 resultswithin the time period is included. Sodium 139 133 - 146 mmol/L 01/30/2025 7:06 AM EDT [facility] Potassium 3.5 3.5 - 5.3 mmol/L 01/30/2025 7:06 AM EDT [facility] Chloride 105 98 - 110 mmol/L 01/30/2025 7:06 AM EDT [facility] CO2 26 21 - 33 mmol/L 01/30/2025 7:06 AM EDT [facility] Anion Gap 8 3 - 16 mmol/L 01/30/2025 7:06 AM EDT [facility] BUN 29(H) 7 - 25 mg/dL 01/30/2025 7:06 AM EDT [facility] Creatinine 1.14 0.60 - 1.30 mg/dL 01/30/2025 7:06 AM EDT [facility] Glucose 114(H) 70 - 100 mg/dL 01/30/2025 7:06 AM EDT [facility] Calcium 8.7 8.6 - 10.3 mg/dL 01/30/2025 7:06 AM EDT [facility] Phosphorus 5.1(H) 2.1 - 4.7 mg/dL 01/30/2025 7:06 AM EDT [facility] Albumin 4.1 3.5 - 5.7 g/dL 01/30/2025 7:06 AM EDT [facility] Osmolality, Calculated 295 278 - 305 mOsm/kg 01/30/2025 7:06 AM EDT [facility] EGFR 83 01/30/2025 7:06 AM EDT [facility] Comment:As of 2021, the estimated [...] MD LAB BLOOD ORDERABLES Final Result [facility] [address] * (ABNORMAL) CBC (01/30/2025 5:51 AM EDT) Only the most recent of4 resultswithin the time period is included. WBC 2.1(L) 3.8 - 10.8 10E3/uL 01/30/2025 6:41 AM EDT [facility] RBC 3.41(L) 4.20 - 5.80 10E6/uL 01/30/2025 6:41 AM EDT [facility] Hemoglobin 11.2(L) 13.2 - 17.1 g/dL 01/30/2025 6:41 AM EDT [facility] Hematocrit 31.9(L) 38.5 - 50.0 % 01/30/2025 6:41 AM EDT [facility] MCV 93.7 80.0 - 100.0 fL 01/30/2025 6:41 AM EDT [facility] MCH 32.9 27.0 - 33.0 pg 01/30/2025 6:41 AM EDT [facility] MCHC 35.1 32.0 - 36.0 g/dL 01/30/2025 6:41 AM EDT [facility] RDW 14.8 11.0 - 15.0 % 01/30/2025 6:41 AM EDT [facility] Platelets 95(L) 140 - 400 10E3/uL 01/30/2025 6:41 AM EDT [facility] MPV 6.4(L) 7.5 - 11.5 fL 01/30/2025 6:41 AM EDT [facility] Whole Blood 01/30/2025 5:51 AM EDT 01/30/2025 6:33 AM EDT us Carlton Hill MD LAB BLOOD ORDERABLES Final Result Performing Organization Address City/State/[facility] Co de Phone Number [facility] [address] * CT Neck With IV contrast [...] cavity, parapharyngeal space, and retropharyngeal space. Normal ward maid space, infratemporal fossa, and buccal space. Infrahyoid [...] CT images of the neck were obtained [id number] mL of IOHEXOL 350 MG IODINE/ML INTRAVENOUS SOLUTION administeredintravenously . Sagittal and coronal 2D multiplanar reconstructions wereperformed at the scanner. COMPARISON: None available FINDINGS: Adequate diagnostic quality. Nasopharynx: Symmetric with no mass. Normal torus tubarius, fossa ofRosenmuller, and adenoid tonsillar tissue. Suprahyoid neck: Normal oropharynx, oral cavity, parapharyngeal space, andretropharyngeal space. Normal ward maid space, infratemporal fossa, andbuccal space. Infrahyoid neck: [...] Church MD at 01/29/2025 2:41 PM EDT [facility] IMG CT ORDERABLES Final Result * Sed Rate (01/29/2025 5:55 AM EDT) Pathologist [facility] Sed Rate 2 0 - 15 mm/hr 01/29/2025 7:03 AM EDT [facility] Whole Blood 01/29/2025 5:55 AM EDT 01/29/2025 6:41 AM EDT Feliciano [facility] LAB BLOOD ORDERABLES Final Resu lt Performing Organization Address City/[facility]/ZIP Co de Phone Number [facility] [address] * C-Reactive Protein (01/29/2025 5:55 AM EDT) [facility] CRP 4.1 1.0 - 10.0 mg/L 01/29/2025 7:13 AM EDT [facility] Plasma 01/29/2025 5:55 AM EDT 01/29/2025 6:41 AM EDT [facility] LAB BLOOD ORDERABLES Final Resu lt [facility] [address] * Giardia Cryptosporidium Antigens (Feces) (01/28/2025 9:27 PM EDT) [facility] Cryptosporidium Ag Negative Negative 2024 8:03 AM EDT [facility] Giardia Ag Negative Negative 01/29/2025 8:03 AM EDT [facility] Comment: Detection of Giardia and Cryptosporidium antigen is more sensitive and specific than microscopy. Because antigens are shed continuously, repeat testing is rarely warranted. Feces 01/28/2025 9:2 7 PM EDT 01/28/2025 10:07 PM EDT Comment:F Ruby Chiang MD MICROBIOLOGY - GENERAL ORDERAB LES Final Result Performing Organization Address [facility] Co de Phone Number [facility] [address] [place] [address]. [address] * Ova and Parasite Comprehensive w/Giardia (Feces) (01/28/2025 9:27 PM EDT) Pathologist [facility] O & P Method: Concentration and Trichrome Stain [facility] Results No Amoeba, Ova, Or Parasites Seen. -- O and P examination of additional specimens is recommended only for symptomatic patients, immunosuppressed patients or those with an appropriate travel history. [facility] Feces FECES / Unknown 01/28/2025 9 :27 PM EDT 01/28/2025 10:07 PM EDT Comment:F Result [facility] Ruby Chiang MD MICROBIOLOGY - GENERAL ORDERAB LES Final Result Performing Organization Address [facility] Co de Phone Number [facility] [address] [place] [address]. [address] * Clostridium Difficile Toxin A/B Antigen (01/28/2025 1:21 PM EDT) Pathologist [facility] CDIFF Tox AGN Negative Negative 01/28/2025 10:35 PM EDT [facility] Comment:C. difficile nucleic acid testing is positive but toxin antigen testing is negative. Please note that antigen testing is less sensitive than nucleic acid testing and cannot distinguish disease from colonization. Interpret results with caution and in the context of the clinical presentation of the patient. Stool, Liquid 01/28/2025 1:2 1 PM EDT 01/28/2025 9:59 PM EDT Comment:F Feliciano Gomez SPEEDER MACHINE OPERATOR BODY FLUIDS AND STOOLS ORDERABL ES Final Result [facility] [address] [place] [address], [facility] * Phosphatidylethanol Confirmation, B (01/28/2025 7:14 AM EDT) Only the most recent of2 resultswithin the time period is included. PETH 16:0/18.1 (POPETH) 394 Cutoff: 10 ng/mL 01/30/2025 9:58 AM EDT [facility] Comment: Phosphatidylethanol (PEth) homologues result [...] Cutoff: 10 ng/mL 01/30/2025 9:58 AM EDT [facility] Comment: PEth 16:0/18:2 (PLPEth) Reference ranges are not well established PEth Interpretation Positive. 01/30 9:58 AM EDT [facility] Comment: ADDITIONAL INFORMATION This report is intended for use in clinical monitoring and management of patients. It is not intended for use in employment-related testing. This test was developed and its performance characteristics determined by [facility] in a manner consistent with CLIA requirements. This test has not been cleared or approved by the U.S. Food and Drug Administration. Test Performed by: [facility] - [address] [address] Industrial Engineering Technologist: Kathy Ortiz Ph.D.; CLIA# [id number] Whole Blood 01/28/2025 7:14 AM EDT 01/30/2025 9:58 AM EDT us Carlton Hill MD LAB BLOOD ORDERABLES Final Result [facility] [address] [place] [address], [facility] * CT Head WO contrast (01/28/2025 12:35 [...] 01/28/2025 1:39 AM EDT Shelby Blanco MD IM CT ORDERABLES Final Result * Enteric Pathogen Panel (01/27/2025 9:30 PM EDT) Campylobacter Group (C. ecoli, C. jejuni, C. trino) Not Detected Not Detected 01/28/2025 3:11 AM EDT [facility] Salmonella species Not Detected Not Detected 01/28/2025 3:11 AM EDT [facility] Shigella species Not Detected Not Detected 01/28/2025 3:11 AM EDT [facility] Vibrio Group (Vibrio cholerae, Vibrio parahaemolyticus) Not Detected Not Detected 01/28/2025 3:11 AM EDT [facility] Yersinia enterocolitica Not Detected Not Detected 01/28/2025 3:11 AM EDT [facility] Shiga toxin 1 Not Detected Not Detected 01/28/2025 3:11 AM EDT [facility] Shiga toxin 2 Not Detected Not Detected 01/28/2025 3:11 AM EDT [facility] Norovirus Not Detected Not Detected 01/28/2025 3:11 AM EDT [facility] Rotavirus Not Detected Not Detected 01/28/2025 3:11 AM EDT [facility] Comment: The Enteric Pathogen Panel [...] STOOLS ORDERABLE S Final Result [facility] [address], [place] [address] * Respiratory viral panel (01/27/2025 9:30 PM EDT) Adenovirus Not Detected Not Detected 01/28/2025 12:20 AM EDT [facility] Coronavirus (229E,HKU1,NL63,OC 43) Not Detected Not Detected 01/28/2025 12:20 AM EDT [facility] SARS-CoV-2 Not Detected Not Detected 01/28/2025 12:20 AM EDT [facility] Human Metapneumovirus Not Detected Not Detected 01/28/2025 12:20 AM EDT [facility] Human Rhinovirus/Enterov irus Not Detected Not Detected 01/28/2025 12:20 AM EDT [facility] Influenza A Not Detected Not Detected 01/28/2025 12:20 AM EDT [facility] Influenza A H1 Not Detected Not Detected 01/28/2025 12:20 AM EDT [facility] Influenza A/H1-2009 Not Detected Not Detected 01/28/2025 12:20 AM EDT [facility] Influenza A H3 Not Detected Not Detected 01/28/2025 12:20 AM EDT [facility] Influenza B Not Detected Not Detected 01/28/2025 12:20 AM EDT [facility] Parainfluenza 1 Not Detected Not Detected 01/28/2025 12:20 AM EDT [facility] Parainfluenza 2 Not Detected Not Detected 01/28/2025 12:20 AM EDT [facility] Parainfluenza 3 Not Detected Not Detected 01/28/2025 12:20 AM EDT [facility] Parainfluenza 4 Not Detected Not Detected 01/28/2025 12:20 AM EDT [facility] Resp. Syncycial Virus A Not Detected Not Detected 01/28/2025 12:20 AM EDT [facility] Resp. Syncycial Virus B Not Detected Not Detected 01/28/2025 12:20 AM EDT [facility] Chlamydia pneumoniae Not Detected Not Detected 01/28/2025 12:20 AM EDT [facility] Mycoplasma pneumoniae Not Detected Not Detected 01/28/2025 12:20 AM EDT [facility] Comment: The Respiratory Viral-Bacterial Panel [...] Test results have been sent to the [facility] in accordance with state requirements. For a fact sheet for healthcare providers, see https://www.fda.gov/media/175945/download. For a fact sheet for patients, see https://www.fda.gov/media/759233/download. Nasopharyngeal Swab NASOPHARYNGEAL STRUCTURE / Unknown 01/27/2025 9:30 PM EDT 01/27/2025 10:20 PM EDT us Shelby Blanco MD BODY FLUIDS AND STOOLS ORDERABLE S Final Result [facility] [address] [place] [address], [facility] * Lactic acid, venous, whole blood (01/27/2025 9:30 PM EDT) Pathologist [facility] Lactate, Shakeel 1.4 0.5 - 1.6 mmol/L 01/27/2025 9:42 PM EDT [facility] Blood, Venous 01/27/2025 9:3 0 PM EDT 01/27/2025 9:39 PM EDT Pamela JACOME LAB BLOOD ORDERABLES Final Res ult Performing Organization Address [facility]/ZIP Co de Phone Number [facility] [address] [facility]. [address] * Histoplasma/Blastomyces Ag, EIA, U (01/27/2025 8:44 PM EDT) [facility] Histoplasma/Blasto myces Ag Result (Urine) Not Detected Not Detected 01/31/2025 11:06 AM EDT [facility] Comment: No antigen from Histoplasma or Blastomyces detected. False negative results may occur depending on extent of disease, and/or site of infection. Repeat testing on a new specimen if clinically indicated. Histoplasma/Blasto myces Ag Value (Urine) Not Detected ng/mL 01/31/2025 11:06 AM EDT [facility] Comment: ADDITIONAL INFORMATION This test was developed and its performance characteristics determined by [facility] in a manner consistent with CLIA requirements. This test has not been cleared or approved by the U.S. Food and Drug Administration. Test Performed by: [facility] - [place] [id number] [place] [address] Industrial Engineering Technologist: Kathy Ortiz Ph.D.; CLIA# [id number] Urine URINE SPECIMEN / Unknown 01/27/2025 8:44 PM EDT 01/31/2025 11:06 AM EDT us Shelby Blanco MD URINE ORDERABLES Final Result Performing Organization Address City/[facility]/ZIP Co de Phone Number [facility] [address] [facility]. [address] * Strep Pneumo-Legionella Urine Antigen (01/27/2025 8:44 PM EDT) Strept Pneumo Ag Negative Negative 01/27/2025 11:12 PM EDT [facility] Legionella Antigen Negative Negative 01/27/2025 11:12 PM EDT [facility] Urine URINE SPECIMEN / Unknown 01/27/2025 8:44 PM EDT 01/27/2025 10:21 PM EDT Narrative [facility] - 01/27/2025 11:12 PM EDT Positive indicates detection of either Streptococcus pneumoniae antigen or Legionella pneumophila serogroup 1 antigen. Negative results do not rule out pneumococcal infection or infection with L. pneumophila serogroup 1, other serogroups of L. pneumophila, or other Legionella species. Shelby Blanco MD URINE ORDERABLES Final Result [facility] [address] * (ABNORMAL) Urinalysis, Microscopic (01/27/2025 8:44 PM EDT) RBC, UA <1 0 - 3 /HPF 01/27/2025 9:32 PM EDT [facility] WBC, UA 1 0 - 5 /HPF 01/27/2025 9:32 PM EDT [facility] Hyaline Casts, UA 75(H) 0 - 2 /LPF 01/27/2025 9:32 PM EDT [facility] Mucus, UA Present(A) None Seen /HPF 01/27/2025 9:32 PM EDT [facility] Urine 01/27/2025 8:44 PM EDT 01/27/2025 9:01 PM EDT us Pamela JACOME URINE ORDERABLES Final Result [facility] [address] * (ABNORMAL) Urinalysis-Macroscopic w/Rfx to Microsco (01/27/2025 8:44 PM EDT) Color, UA Yellow Yellow,Straw 01/27/2025 9:32 PM EDT [facility] Clarity, UA Clear Clear 01/27/2025 9:32 PM EDT [facility] Specific [place], UA 1.015 1.005 - 1.035 01/27/2025 9:32 PM EDT [facility] pH, UA 5.5 5.0 - 8.0 01/27/2025 9:32 PM EDT [facility] Protein, UA 30(A) Negative mg/dL 01/27/2025 9:32 PM EDT [facility] Glucose, UA Negative Negative mg/dL 01/27/2025 9:32 PM EDT [facility] Ketones, UA 20(A) Negative mg/dL 01/27/2025 9:32 PM EDT [facility] Bilirubin, UA Negative Negative 01/27/2025 9:32 PM EDT [facility] Blood, UA Negative Negative 01/27/2025 9:32 PM EDT [facility] Nitrite, UA Negative Negative 01/27/2025 9:32 PM EDT [facility] Urobilinogen, UA <2.0 0.2 - 1.9 mg/dL 01/27/2025 9:32 PM EDT [facility] Leukocyte Esterase, UA Negative Negative 01/27/2025 9:32 PM EDT [facility] Urine 01/27/2025 8:44 PM EDT 01/27/2025 8:53 PM EDT Pamela JACOME URINE ORDERABLES Final Result [facility] [address] [place] [address], [facility] * Histoplasma/Blastomyces Ag, EIA, S (01/27/2025 8:20 PM EDT) Histoplasma/Blasto myces Ag Result (Serum) Not Detected Not Detected 01/30/2025 12:49 PM EDT [facility] Comment: No antigen from Histoplasma or Blastomyces detected. False negative results may occur depending on extent of disease, and/or site of infection. Repeat testing on a new specimen if clinically indicated. Histoplasma/Blasto myces Ag Value (Serum) Not Detected ng/mL 01/30/2025 12:49 PM EDT [facility] Comment: ADDITIONAL INFORMATION This test was developed and its performance characteristics determined by [facility] in a manner consistent with CLIA requirements. This test has not been cleared or approved by the U.S. Food and Drug Administration. Test Performed by: [facility] [address] [place] [address] Industrial Engineering Technologist: Kathy Ortiz Ph.D.; CLIA# [id number] Serum SERUM SPECIMEN / Unknown 01/27/2025 8:20 PM EDT 01/30/2025 12:49 PM EDT Comment:S us Shelby Blanco MD LAB BLOOD ORDERABLES Final Resul t [facility] [address] [place] [address], [facility] * Fungitell (01/27/2025 8:20 PM EDT) Fungitell Value <31.25 pg/mL 4:19 PM EDT [facility] Reference Value Comment 4:19 PM EDT [facility] Comment:Negative: <60, Posit bradley: >/=60 Clinical Relevance Notes 2024 4:19 PM EDT [facility] Comment: The Fungitell test is [...] Cryptococcus, which produce very low levels of (1,3)-rgmb-Z-qzjwxz. This test will not detect the zygomycetes, such as Absidia, Blastomyces, Mucor, and Rhizopus, which are not known to produce (1,3)-vpln-R-apbiet. In addition, the yeast phase of Blastomyces dermatitidis produces little (1,3)-drtk-U-dhmnnk and may not be detected by the assay. Disclaimer: Notes 02/02/2025 4:19 PM EDT [facility] Comment: This test has been cleared or approved for diagnostic use by the U.S. Food and Drug Administration. Performance characteristics were verified by [employer]. Electronically signed by: Comment 02/02/2025 4:19 PM EDT [facility] Comment:Usha Landin Result Comment 02/03/20 4:19 PM EDT [facility] Comment:Negative Interpretation Notes 02/02/2025 4:19 PM EDT [facility] Comment: (1,3) Lhym-B-Drlplq was NOT DETECTED in the sample. Reasons for negative results could include the patient being in the early stage of infection before detectable levels of (1,3) Datv-P-[id number] are present. Clinical diagnosis should be made in the context of the patient's complete medical history. Serum 01/27/2025 8:20 PM EDT 02/02/2025 5:07 PM EDT Narrative [facility] - 02/02/2025 5:07 PM EDT PERFORMED AT: [employer] [address] [id number] WELDING MACHINE OPERATOR ULTRASONIC: Cyril Porter, PhD PHONE: [phone] us Shelby Blanco MD LAB BLOOD ORDERABLES Final Resul t [facility] [address] [place] [address], [facility] * Cryptococcus Ag (01/27/2025 8:20 PM EDT) Crypto Ag, Ser Negative Negative 01/27/2025 11:41 PM EDT [facility] Crypto Ag Titer, Ser Not Applicable 01/27/2025 11:41 PM EDT [facility] Serum SERUM SPECIMEN / Unknown 01/27/2025 8:20 PM EDT 01/27/2025 10:04 PM EDT Comment:S Shelby Blanco MD LAB BLOOD ORDERABLES Final Resul t Performing Organization Address [facility]/State/ZIP Co de Phone Number [facility] [address] [facility]. [address] * BK PCR, Blood (Renal Txp and BMT only) (01/27/2025 8:20 PM EDT) BKV IU DNA Quant, Blood Not Detected IU/mL 01/29/2025 1:48 PM EDT [facility] Comment: Beginning August 23, 2021, [facility] has transitioned BK viral load testing [...] 10 IU/mL 01/29/2025 1:48 PM EDT [facility] Comment:BKV DNA Not Detected Plasma 01/27/2025 8:20 PM EDT 01/27/2025 9:49 PM EDT Shelby Blanco MD LAB BLOOD ORDERABLES Final Resul t Performing Organization Address City/[facility]/ZIP Co de Phone Number [facility] [address] [facility]. [address] * Katie-Schafer Virus (EBV) PCR (01/27/2025 8:20 PM EDT) EBV DNA, Quantitative PCR Not Detected IU/mL 01/28/2025 10:54 AM EDT [facility] EBV DNA, Log10 See Note log 10 IU/mL 01/28/2025 10:54 AM EDT [facility] Comment: Beginning September 05, 2022, [facility] has transitioned EBV viral load testing [...] BLOOD ORDERABLES Final Resul t [facility] [address] [place] [address], [facility] * Adenovirus PCR (01/27/2025 8:20 PM EDT) Adenovirus, Quantitative PCR 0 0 - 0 copies/mL 02/03/2025 1:12 PM EDT [facility] Comment: Testing performed by [facility], [address] [place] [address]. This test(s) was developed and its performance characteristics determined and validated by the Department of Pathology and Laboratory Medicine at [facility]. It has not been cleared or [...] ORDERABLES Final Resul t Performing Organization Address [facility] Co de Phone Number [facility] [address] [facility]. [address] * Aspergillus Ag (01/27/2025 8:20 PM EDT) Aspergillus Ag. 0.03 0.00 - 0.49 Index 01/30/2025 5:54 PM EDT [facility] Serum SERUM SPECIMEN / Unknown 01/27/2025 8:20 PM EDT 01/31/2025 4:23 AM EDT Comment:S us Shelby Blanco MD BODY FLUIDS AND STOOLS ORDERABLE S Final Result Performing Organization Address [facility] Co de Phone Number [facility] [address] [place] [address]. [address] * Blood culture-Peripheral (Blood) (01/27/2025 8:20 PM EDT) Only the most recent of2 resultswithin the time period is included. Culture Result No Growth After 5 Days [facility] Blood BLOOD SPECIMEN / Unknown 01/27/2025 8:20 PM EDT 01/27/2025 9:57 PM EDT us Pamela JACOME MICROBIOLOGY - GENERAL ORDERAB LES Final Result Performing Organization Address [facility] Co de Phone Number [facility] [address] [facility]. [address] * Fungus culture, blood (Blood) (01/27/2025 8:20 PM EDT) Culture Result No Fungus Isolated At 4 Weeks [facility] Blood SERUM SPECIMEN / Unknown 01/27/2025 8:20 PM EDT 01/27/2025 9:50 PM EDT Comment:S Shelby Blanco MD MICROBIOLOGY - GENERAL ORDERABLE S Final Result [facility] [address] [facility]. [address] * (ABNORMAL) Lipase (01/27/2025 8:20 PM EDT) Lipase 3(L) 4 - 82 U/L 01/27/2025 9:0 3 PM EDT [facility] Plasma 01/27/2025 8:20 PM EDT 01/27/2025 8:34 PM EDT Pamela JACOME LAB BLOOD ORDERABLES Final Res ult Performing Organization Address [facility] Co de Phone Number [facility] [address] [facility]. [address] * Hemoglobin A1c (01/27/2025 8:20 PM EDT) Hemoglobin A1C 4.0 4.0 - 5.6 % 01/27/2025 11:49 PM EDT [facility] Comment: Hemoglobin A1c Interpretation Guidelines: [...] EDT 01/27/2025 8:57 PM EDT Narrative [facility] - 01/27/2025 11:49 PM EDT A1C project?->Yes Pamela JACOME LAB BLOOD ORDERABLES Final Res ult Performing Organization Address City/[facility]/ZIP Co de Phone Number [facility] [address] [facility]. [employer], [place] [address] * Basic metabolic panel (01/27/2025 8:20 PM EDT) Sodium 136 133 - 146 mmol/L 01/27/2025 9:03 PM EDT [facility] Potassium 4.0 3.5 - 5.3 mmol/L 01/27/2025 9:03 PM EDT [facility] Chloride 100 98 - 110 mmol/L 01/27/2025 9:03 PM EDT [facility] CO2 25 21 - 33 mmol/L 01/27/2025 9:03 PM EDT [facility] Anion Gap 11 3 - 16 mmol/L 01/27/2025 9:03 PM EDT [facility] BUN 16 7 - 25 mg/dL 01/27/2025 9:03 PM EDT [facility] Creatinine 1.02 0.60 - 1.30 mg/dL 01/27/2025 9:03 PM EDT [facility] Glucose 93 70 - 100 mg/dL 01/27/2025 9:03 PM EDT [facility] Calcium 9.7 8.6 - 10.3 mg/dL 01/27/2025 9:03 PM EDT [facility] Osmolality, Calculated 283 278 - 305 mOsm/kg 01/27/2025 9:03 PM EDT [facility] EGFR >90 01/27/2025 9:03 PM EDT [facility] Comment: As of 2021, the [...] BLOOD ORDERABLES Final Res ult [facility] [address] [place] [address] * X-ray Chest PA and Lateral [...] DIAGNOSTIC IMAGING ORDERAB LES Final Result * Protime-INR (12/23/2024 9:53 AM EDT) Only the most recent of3 resultswithin the time period is included. INR 0.94 0.9 - 1.1 Protime 10.5 Plasma Harvey Domínguez III, MD LAB BLOOD ORDERABLE S Final Result * HIV-1 RNA, Quantitative, PCR (11/25/2024 8:42 AM EDT) Pathologist [facility] HIV 1 Copies Not Detected copies/mL 11/26/2024 10:57 AM EDT [facility] Comment:Test methodology for HIV-1 RNA quantification is an FDA-approved nucleic acid amplification assay. The Lower Limit of Quantitation (LLoQ) is 20 copies/mL. The linear range is 20- to 10,000,000 copies/mL. The Limit of Detection (LoD) is 13.2 copies/mL. The reference range is Not Detected. HIV [id number] See Note [id number] /mL 11/26/2024 10:57 AM EDT [facility] Comment:HIV-1 RNA not detect ed. Plasma 11/25/2024 8:42 AM EDT 11/25/2024 10:59 AM EDT Narrative [facility] - 11/26/2024 10:57 AM EDT One time lab order to be collected with next set of standing liver transplant labs. UNOS requirement. Please fax all results to [phone]. Call critical results to [phone]. Harvey Domínguez III, MD LAB BLOOD ORDERABLE S Final Result [facility] [address] [place] [address], [facility] * Hepatitis C Antibody (10/25/2024 10:17 PM EDT) Pathologist [facility] HCV Ab Nonreactive Nonreactive 10/25/2024 11:16 PM EDT [facility] Comment:Health Department no tified in accordance with reportable infectious disease guidelines. Serum 10/25/2024 10:1 7 PM EDT 10/25/2024 10:17 PM EDT Narrative [facility] - 10/25/2024 11:16 PM EDT Antibodies to HCV not detected; does not exclude the possibility of exposure to HCV. Aysha Gill MD LAB BLOOD ORDERABLES F inal Result [facility] [address] [facility]. [address] * TSH (Thyroid Stimulating Hormone) (10/07/2024 6:37 PM EDT) TSH 0.81 0.45 - 4.12 uIU/mL 10/07/2024 8:17 PM EDT [facility] Serum 10/07/2024 6:37 PM EDT 10/07/2024 6:50 PM EDT Gerri Peterson MD LAB BLOOD ORDERABLES Final Resu lt Performing Organization Address City/[facility]/ZIP Co de Phone Number [facility] [address] [facility]. [address] from Last 3 Months or Most Recently Relevant to Health Maintenance Additional Health Concerns Infection Onset Date Last Indicated C. difficile 01/28/2025 01/28/2025 Insurance [facility] Member Subscriber Plan / Payer (Ef fective 2015-Present) Name:Julien Anderson Relation to Subscriber:Self Name:Julien Anderson Payer ID:[id number] (NA) Type:Not on file Address: [place] [id number] [facility] Member Subscriber Plan / Payer (Ef fective 2024-2025) Name:Julien Anderson Relation to Subscriber:Self Name:Julien Anderson Payer ID:[id number] Group ID:Not on file Type:Transplant Address: [address] [place] [address] Advance Directives For more information, please contact: [phone] * Full Code (Latest Code Status on [...] 9:42 AM 09/09/2024 10:30 PM Care Teams Coordinator Cardiopulmonary Services Relationship Specialty Start Date End Date Enedina Mcguire NP [address] [place] [address] PCP - General Internal Medicine 10/05/24 Maureen Pantoja, ЮЛИЯ Txp Post Coordinator Transplant Hepatology 10/28/24 Chris Orosco MD [address] [place] [address] [address] [place] [address] Consulting Physician Transplant Hepatology 02/26/25
--- OUTSIDE RECORDS SUMMARY | 2025-03-04 12:05 | XMS_ITS | Encounter Summary ---
Author Organization [facility] Address [address] [place] [address] Care Team Providers Care Senior Quality Assurance Specialist Name Role Phone Enedina Mcguire NP Primary Care Provider + [phone] Maureen Pantoja RN Unavailable Unavail able Source [...] release of HIV test results or diagnoses. [id number] Reason for Visit * Reason Comments Results Encounter Details Date Type Department Care Team (Riky mcdaniel Contact Info) Description 02/13/2025 Telephone [facility] Liver Transplant at [address] [address] Marisela Martinez MA Results Social [...] In the past 12 months has e [employer], gas, oil, or water [employer] threatened to shut off services in your [...] as of this encounter Progress Notes * Mariola Quintana RN - 02/13/2025 1:22 PM EDT Txp provider reviewed labs. Dr Orosco said: Please let patient know that he does not need treatment for positive urine culture after discussionwith transplant ID and transplant nephrology. THE [employer] message sent to patient. * Mariola Quintana RN - 02/13/2025 9:09 AM EDT Covering RN Coordinator aware. Will route to Txp Provider for further review and recommendations. * Marisela Martinez MA - 02/13/2025 8:38 AM EDT Ashley from [facility] outpt lab called to report a critical lab result for pt Urine Culture collected on 02/10/2025 grew Enterococcus Faecium and it is Vancomycin resistant. Labs is faxing the result to the office. documented in this encounter Plan of Treatment Not on file documented as of this encounter Visit Diagnoses Not on filedocumented in this encounter Additional Health Concerns Infection Onset Date Last Indicated Resolved Time C. difficile 01/28/2025 01/28/2025 Assessment Noted Time PHQ-9 Depression Total Score: 2 12/11/19 9:00 AM EDT documented as of this encounter Care Teams Senior Quality Assurance Specialist Relationship Specialty Start Date End Date Enedina Mcguire NP [address] [place] [address] PCP - General Internal Medicine 10/05/24 Maureen Pantoja, ЮЛИЯ Txp Post Coordinator Transplant Hepatology 10/28/24 documented as of this encounter
--- OUTSIDE RECORDS SUMMARY | 2025-03-04 12:05 | XMS_ITS | Encounter Summary ---
Author Organization [facility] Address [address] [place] [address] Care Team Providers Care Engineering Program Manager Name Role Phone Enedina Mcguire NP Primary Care Provider + [phone] Maureen Pantoja RN Unavailable Unavail able Source [...] release of HIV test results or diagnoses. [id number] Health Encounter Details Date Type Department Care Team (Late st Contact Info) Description 01/15/2025 Telephone [facility] Liver Transplant at [address] [address] Marlene Ro MA Social History [...] Recorded In the past 12 months has [employer], gas, oil, or water [employer] threatened to shut off services in your [...] AM EDT I spoke with Gavin at [facility] about the phosphatidylethanol order tied to the patient???s registration. Although the order was found, it wasn???t sent to phlebotomy, so no test was done on 01/14. Due to this recurring issue, I contacted the supervisor picking crew, Gladys. We agreed I would notify the lab directly of one-time and standing orders and fax them at [phone] to prevent future errors. Gladys is also [...] as of this encounter Care Teams Engineering Program Manager Relationship Specialty Start Date End Date Enedina Mcguire NP [address] [place] [address] PCP - General Internal Medicine 10/05/24 Maureen Pantoja, RN Txp Post Coordinator Transplant Hepatology 10/28/24 documented as of this encounter
--- OUTSIDE RECORDS SUMMARY | 2025-03-04 12:05 | XMS_ITS | Encounter Summary ---
Author Organization [facility] Address [address] [place] [address] Care Team Providers Care Wrecking Supervisor Name Role Phone Enedina Mcguire NP Primary Care Provider [phone] Maureen Pantoja RN Unavailable Unavail able Source [...] release of HIV test results or diagnoses. [id number] Reason for Visit * Reason Comments Medication Refill Encounter Details Date Type Department Care Team (Late st Contact Info) Description 02/08/2025 Refill [facility] Liver Transplant at [address] [address] Harvey Domínguez III, MD [address] [place] [address] Social History Tobacco Use Types Packs/Day Years Used Date Smoking Tobacco: Former Cigarettes Smokeless Tobacco: Current Alcohol Use Standard Drinks/Week Comments Yes 0 (1 standard drink = 0.6 oz pure alcohol) History of alcohol abuse, reports no use in 3 week- typically endorses use as 4 glasses of wine a days Utilities Answer Date Recorded In the past 12 months has [employer], gas, oil, or water [employer] threatened to shut off services in your [...] as of this encounter Care Teams Wrecking Supervisor Relationship Specialty Start Date End Date Enedina Mcguire NP [address] [place] [address] PCP - General Internal Medicine 10/05/24 Maureen Pantoja, ЮЛИЯ Txp Post Coordinator Transplant Hepatology 10/28/24 documented as of this encounter
--- OUTSIDE RECORDS SUMMARY | 2025-03-04 12:05 | XMS_ITS | Encounter Summary ---
Author Organization [facility] Address [address] [place] [address] Care Team Providers Care Fbi Field Agent Name Role Phone Enedina Mcguire NP Primary Care Provider + [phone] Maureen Pantoja RN Unavailable Unavail able Source [...] release of HIV test results or diagnoses. [id number] Reason for Visit * Reason Comments Results Encounter Details Date Type Department Care Team (Riky st Contact Info) Description 01/16/2025 Telephone [facility] Liver Transplant at [address] [address] Maureen Pantoja, RN Results [...] In the past 12 months has e [employer], gas, oil, or water [employer] threatened to shut off services in your [...] documented as of this encounter Care Teams Fbi Field Agent Relationship Specialty Start Date End Date Enedina Mcguire NP [address] [place] [address] PCP - General Internal Medicine 10/05/24 Maureen Pantoja, ЮЛИЯ Txp Post Coordinator Transplant Hepatology 10/28/24 documented as of this encounter
--- OUTSIDE RECORDS SUMMARY | 2025-03-04 12:05 | XMS_ITS | Encounter Summary ---
Author Organization [facility] Address [address] [place] [address] Care Team Providers Care Freight Caller Name Role Phone Enedina Mcguire NP Primary Care Provider + [phone] Maureen Pantoja RN Unavailable Unavail able Source [...] release of HIV test results or diagnoses. [id number] Reason for Visit * Reason Comments Critical Lab Results Encounter Details Date Type Department Care Team (Late st Contact Info) Description 01/19/2025 Telephone [facility] Liver Transplant at [address] [place] [address] Gladis Chisholm MA Critical Lab Results [...] In the past 12 months has e [employer], gas, oil, or water [email or web address] threatened to shut off services in your [...] Chisholm MA - 01/19/2025 9:17 AM EDT [facility] lab called to report: Urine culture [...] documented as of this encounter Care Teams Freight Caller Relationship Specialty [place] [address] [place], [place] [id number] PCP - General Internal Medicine 10/05/24 Maureen Pantoja, RN Txp Post Coordinator Transplant Hepatology 10/28/24 documented as of this encounter
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
--- OUTSIDE RECORDS SUMMARY | 2025-03-04 12:05 | XMS_ITS | Encounter Summary ---
Author Organization [facility] Address [address] [place] [address] Care Team Providers Care Lining Printer Name Role Phone Enedina Mcguire NP Primary Care Provider + [phone] Maureen Pantoja RN Unavailable Unavail able Source [...] release of HIV test results or diagnoses. [id number] Health Encounter Details Date Type Department Care Team (Late st Contact Info) Description 02/04/[address] [facility] Liver Transplant at [address] [address] Marlene Ro MA Social History [...] Recorded In the past 12 months has [employer], gas, oil, or water [employer] threatened to shut off services in [...] documented as of this encounter Care Teams Lining Printer Relationship Specialty Start Date End Date Enedina Mcguire NP [address] [place] [address] PCP - General Internal Medicine 10/05/24 Maureen Pantoja, ЮЛИЯ Txp Post Coordinator Transplant Hepatology 10/28/24 documented as of this encounter
--- OUTSIDE RECORDS SUMMARY | 2025-03-04 12:05 | XMS_ITS | Encounter Summary ---
Author Organization [facility] Address [address] [place] [address] Care Team Providers Care Railcar Switchman Name Role Phone Enedina Mcguire NP Primary Care Provider + [phone] Maureen Pantoja RN Unavailable Unavail able Chris Orosco MD Unavailable +[phone] Source Comments This information has been disclosed [...] release of HIV test results or diagnoses. [id number] Encounter Details Date Type Department Care Team (Late st Contact Info) Description 02/23/2025 Chart Note [facility] Liver Transplant at [address] [address] Marlene Ro MA 02/18 Labs entered from Psychiatric Social History Tobacco Use Types Packs/Day Years Used Date Smoking Tobacco: Former Cigarettes Smokeless Tobacco: Current Alcohol Use Standard Drinks/Week Comments Yes 0 (1 standard drink = 0.6 oz pure alcohol) History of alcohol abuse, reports no use in 3 week- typically endorses use as 4 glasses of wine a days Utilities Answer Date Recorded In the past 12 months has [employer], gas, oil, or water company threatened to [...] Notes * Marlene Ro MA - 02/23/2025 11:54 AM EDT Images from the original note were not included. 02/18 Labs entered from Psychiatric Pet Pending documented in this encounter Plan of Treatment Not on file documented as of this encounter Procedures Procedure Name Priority Date/Time Associated Diagnosis Comments PHATIDYLETHANOL (PETH) Routine 10:34 AM EDT URINE PROTEIN, TOTAL, RANDOM (W/O CREATININE) Routine 02/18/2025 10:34 AM EDT HEPATIC FUNCTION PANEL Routine 10:34 AM EDT TACROLIMUS LEVEL Routine 02/18/2025 10:3 4 AM EDT CREATININE, URINE, RANDOM Routine 02/18/2025 10:34 AM EDT URINALYSIS W/RFL TO MICROSCOPIC Routine 02/18/2025 10:34 AM EDT CBC AND DIFFERENTIAL Routine 02/18/2025 10:34 AM EDT MAGNESIUM Routine 02/18/2025 10:34 AM EDT RENAL FUNCTION PANEL W/O EGFR Routine 02/18/2025 10:34 AM EDT documented in this encounter Results * Phatidylethanol (PEth) (02/18/2025 10:34 AM EDT) Phosphatidylethanol (PEth) Positive 371 Whole Blood us Historical Provider LAB BLOOD ORDERABLES Denisse l Result * (ABNORMAL) Magnesium (02/18/2025 10:34 AM EDT) Pathologist [facility] Magnesium 1.4(A) 1.6 - 2.4 mg/dL Plasma Narrative Resulting Agency Comment Psychiatric Result [facility] LAB BLOOD ORDERABLES Denisse l Result * (ABNORMAL) Renal Function Panel w/o EGFR (02/18/2025 10:34 AM EDT) Glucose 84 BUN 24 CO2 31(A) 13 - 22 mmol/L Creatinine 1.10 Potassium 4.3 Sodium 140 Chloride 99 Phosphorus 4.9 2.5 - 4.9 mg/dL Calcium 9.1 EGFR 74 mg/dL Albumin 4.4 3.5 - 5.0 g/dL Blood Narrative Resulting Agency Comment Psychiatric Result [facility] LAB BLOOD ORDERABLES Denisse l Result * Tacrolimus level (02/18/2025 10:34 AM EDT) [facility] Tacrolimus Lvl 10.7 6 - 15 ng/mL Whole Blood Narrative Resulting Agency Comment Psychiatric Result [facility] LAB BLOOD ORDERABLES Denisse l Result * Creatinine, urine, random (02/18/2025 10:34 AM EDT) [facility] Creatinine, Urine 54 Urine Narrative Resulting Agency Comment Psychiatric Result [facility] URINE ORDERABLES Final Re sult * Urinalysis w/Rfl to Microscopic (02/18/2025 10:34 AM EDT) Pathologist [facility] Glucose, UA Negative Negative Ketones, UA Negative Negative Blood, UA Negative Negative Bilirubin, UA Negative Negative Urobilinogen, UA Normal Normal Protein, UA Negative Negative pH, UA 5.5 4.5 - 8.0 Specific [place], UA 1.015 1.005 - 1.030 Clarity, UA Clear Clear Color, UA Yellow Light Yellow, Yellow Urine Narrative Resulting Agency Comment Psychiatric Result [facility] Historical Provider URINE ORDERABLES Final [...] 4.9 10^3/mL Blood Narrative Resulting Agency Comment Psychiatric Result [facility] Historical Provider LAB BLOOD ORDERABLES Denisse l Result * Urine Protein, Tot, Random (w/o Creat) (02/18/2025 10:34 AM EDT) Total Protein, Ur 22.0 Urine Narrative Resulting Agency Comment Psychiatric Result [facility] Historical Provider URINE ORDERABLES Final Re sult * Hepatic Function Panel (02/18/2025 10:34 AM EDT) Bilirubin, Direct 0.0 Bilirubin, Indirect 0.5 Alkaline Phosphatase 85 ALT 19 AST 24 Total Bilirubin 0.5 Total Protein 7.1 Plasma Narrative Resulting Agency Comment Psychiatric us Historical Provider LAB BLOOD ORDERABLES Denisse l Result documented in this encounter Visit Diagnoses Not on filedocumented in this encounter Additional Health Concerns Infection Onset Date Last Indicated Resolved Time C. difficile 01/28/2025 01/28/2025 Assessment Noted Time PHQ-9 Depression Total Score: 2 12/11/19 25 9:00 AM EDT documented as of this encounter Care Teams Railcar Switchman Relationship Specialty Start Date End Date Enedina Mcguire NP [address] [place] [address] PCP - General Internal Medicine 10/05/24 Maureen Pantoja RN Txp Post Coordinator Transplant Hepatology 10/28/24 Chris Orosco MD [address] [place] [address] [address] [place] [address] Consulting Physician Transplant Hepatology 02/26/25 documented as of this encounter
--- OUTSIDE RECORDS SUMMARY | 2025-03-04 12:05 | XMS_ITS | Encounter Summary ---
Author Organization [facility] Address [address] [place] [address] Care Team Providers Care Burial Vault Setter Name Role Phone Enedina Mcguire NP Primary Care Provider [phone] Maureen Pantoja RN Unavailable Unavail able Source [...] release of HIV test results or diagnoses. [id number] Reason for Visit * Reason Comments Medication Refill Encounter Details Date Type Department Care Team (Late st Contact Info) Description 01/17/2025 Refill [facility] Liver Transplant at [address] [address] Harvey Domínguez III, MD [address] [place] [address] Encounter for therapeutic drug monitoring; S/P [...] documented as of this encounter Care Teams Burial Vault Setter Relationship Specialty Start Date End Date Enedina Mcguire NP [address] [place] [address] PCP - General Internal Medicine 10/05/24 Maureen Pantoja, RN Txp Post Coordinator Transplant Hepatology 10/28/24 documented as of this encounter
--- OUTSIDE RECORDS SUMMARY | 2025-03-04 12:05 | XMS_ITS | Encounter Summary ---
Author Organization [facility] Address [address] [place] [address] Care Team Providers Care Unhairer Name Role Phone Enedina Mcguire NP Primary Care Provider + [phone] Maureen Pantoja RN Unavailable Unavail able Source [...] release of HIV test results or diagnoses. [id number] Health Encounter Details Date Type Department Care Team (Late st Contact Info) Description 02/23/2025 Telephone [facility] Liver Transplant at [address] [address] Marlene Ro MA Social [...] Recorded In the past 12 months has [employer], gas, oil, or water [employer] threatened to shut off services in [...] documented as of this encounter Care Teams Unhairer Relationship Specialty Start Date End Date Enedina Mcguire NP [address] [place] [address] PCP - General Internal Medicine 10/05/24 Maureen Pantoja, ЮЛИЯ Txp Post Coordinator Transplant Hepatology 10/28/24 documented as of this encounter
--- OUTSIDE RECORDS SUMMARY | 2025-03-04 12:05 | XMS_ITS | Encounter Summary ---
Author Organization [facility] Address [address] [place] [address] Care Team Providers Care Manager Heart Failure Name Role Phone Enedina Mcguire NP Primary Care Provider + [phone] Maureen Pantoja RN Unavailable Unavail able Source [...] release of HIV test results or diagnoses. [id number] Health Encounter Details Date Type Department Care Team (Late st Contact Info) Description 02/17/2025 Telephone [facility] Liver Transplant at [address] [address] Mralene Ro MA Social History Tobacco Use Types Packs/Day Years Used Date Smoking Tobacco: Former Cigarettes Smokeless Tobacco: Current Alcohol Use Standard Drinks/Week Comments Yes 0 (1 standard drink = 0.6 oz pure alcohol) History of alcohol abuse, reports no use in 3 week- typically endorses use as 4 glasses of wine a days Utilities Answer Date Recorded In the past 12 months has [employer], gas, oil, or water [email or web address] threatened to shut off services in your [...] as of this encounter Care Teams Manager Heart Failure Relationship Specialty Start Date End Date Enedina Mcguire NP [address] [place] [address] PCP - General Internal Medicine 10/05/24 Maureen Pantoja, ЮЛИЯ Txp Post Coordinator Transplant Hepatology 10/28/24 documented as of this encounter
--- OUTSIDE RECORDS SUMMARY | 2025-03-04 12:05 | XMS_ITS | Encounter Summary ---
Author Organization [facility] Address [address] [place] [address] Care Team Providers Care Electrode Turner And Finisher Name Role Phone Enedina Mcguire NP Primary Care Provider + [phone] Maureen Pantoja RN Unavailable Unavail able Source [...] release of HIV test results or diagnoses. [id number] Health Encounter Details Date Type Department Care Team (Late st Contact Info) Description 01/15/2025 Chart Note [facility] Liver Transplant at [address] [place] [phone] Marlene Ro MA 01/14 Labs entered from [...] In the past 12 months has [employer], gas, oil, or water [employer] threatened to shut off services in your [...] were not included. 01/14 Labs entered from [facility] documented in this encounter Plan [...] 6 - 15 ng/mL Whole Blood Result [facility] Provider LAB BLOOD ORDERABLES Denisse l Result * (ABNORMAL) Magnesium (01/14/2025 10:53 AM EDT) [facility] Magnesium 1.2(A) 1.6 - 2.4 mg/dL Plasma Narrative Resulting Agency Comment [facility] Result [facility] LAB BLOOD ORDERABLES Denisse l Result * Renal Function Panel w/o EGFR (01/14/2025 10:53 AM EDT) [facility] Glucose 94 BUN 19 CO2 21 13 - 22 mmol/L Creatinine 1.00 Potassium 4.4 Sodium 140 Chloride 109 Phosphorus 4.8 2.5 - 4.9 mg/dL Calcium 9.5 EGFR 82 mg/dL Albumin 4.8 3.5 - 5.0 g/dL Blood Narrative Resulting Agency Comment [facility] Result [facility] LAB BLOOD ORDERABLES Denisse l Result * Creatinine, urine, random (01/14/2025 10:53 AM EDT) [facility] Creatinine, Urine 90 Urine Narrative Resulting Agency Comment [facility] Result [facility] Provider URINE ORDERABLES Final Re sult * Urinalysis w/Rfl to Microscopic (01/14/2025 10:53 AM EDT) [facility] Glucose, UA Negative Negative Ketones, UA Negative Negative Blood, UA Negative Negative Bilirubin, UA Negative Negative Urobilinogen, UA Normal Normal Protein, UA Negative Negative Nitrite, UA Negative Negative pH, UA 5.5 4.5 - 8.0 Specific [place], UA 1.020 1.005 - 1.030 Clarity, UA Clear Clear Color, UA Yellow Light Yellow, Yellow Urine Narrative Resulting Agency Comment [facility] Result [facility] Provider URINE ORDERABLES Final Re sult [...] 2.0 10^3/mL Blood Narrative Resulting Agency Comment [facility] Result [facility] LAB BLOOD ORDERABLES Denisse l Result * Urine Protein, Tot, Random (w/o Creat) (01/14/2025 10:53 AM EDT) Total Protein, Ur 13.0 Urine Narrative Resulting Agency Comment [facility] Result [facility] Provider URINE ORDERABLES Final Re sult * Hepatic Function Panel (01/14/2025 10:53 AM EDT) Bilirubin, Direct 0.2 Bilirubin, Indirect 0.5 Alkaline Phosphatase 49 ALT 15 AST 24 Total Bilirubin 0.7 Total Protein 6.8 Plasma Narrative Resulting Agency Comment [facility] Result [facility] Provider LAB BLOOD ORDERABLES Denisse l Result documented in this encounter Visit Diagnoses Not on filedocumented in this encounter Additional Health Concerns Infection Onset Date Last Indicated 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
--- OUTSIDE RECORDS SUMMARY | 2025-03-04 12:05 | XMS_ITS | Encounter Summary ---
Author Organization [facility] Address [facility] [place] [address] Care Team Providers Care Generator Worker Name Role Phone Enedina Mcguire NP Primary Care Provider + [phone] Maureen Pantoja RN Unavailable Unavail able Source [...] release of HIV test results or diagnoses. [id number] Health Encounter Details Date Type Department Care [...] Recorded In the past 12 months has [employer], [employer], oil, or water [employer] threatened to shut off services in your [...] documented as of this encounter Care Teams Generator Worker Relationship Specialty Start Date End Date Enedina Mcguire NP [address] [place] [address] PCP - General Internal Medicine 10/05/24 Maureen Pantoja, ЮЛИЯ Txp Post Coordinator Transplant Hepatology 10/28/24 documented as of this encounter
--- OUTSIDE RECORDS SUMMARY | 2025-03-04 12:05 | XMS_ITS | Encounter Summary ---
Author Organization [facility] Address [address] [place] [address] Care Team Providers Care Data Processing Systems Consultant Name Role Phone Enedina Mcguire NP Primary Care Provider [phone] Maureen Pantoja RN Unavailable Unavail able Source [...] release of HIV test results or diagnoses. [id number] Reason for Visit * Reason Comments Medication Refill Encounter Details Date Type Department Care Team (Late st Contact Info) Description 12/21/2024 Refill [facility] Liver Transplant at [address] [address] Lydia Sanchez MD [address] [place] [address] Liver/[place] [address] Encounter for therapeutic drug monitoring; S/P liver transplant ([facility]); Hypomagnesemia; Kidney transplant recipient; Hypertension, unspecified [...] therapeutic drug monitoring S/P liver transplant ([facility]) Hypomagnesemia Disorders of magnesium metabolism Kidney [...] as of this encounter Care Teams Data Processing Systems Consultant Relationship Specialty Start Date End Date Enedina Mcguire NP [address] [place] [address] PCP - General Internal Medicine 10/05/24 Maureen Pantoja, RN Txp Post Coordinator Transplant Hepatology 10/28/24 documented as of this encounter
--- OUTSIDE RECORDS SUMMARY | 2025-03-04 12:06 | XMS_ITS | Encounter Summary ---
Author Organization [facility] Address [address] [place] [address] Care Team Providers Care Tanning Drum Operator Name Role Phone Enedina Mcguire NP Primary Care Provider + [phone] Maureen Pantoja RN Unavailable Unavail able Source [...] release of HIV test results or diagnoses. [id number] Health Encounter Details Date Type Department Care Team (Late st Contact Info) Description 02/09/2025 Telephone [facility] Liver Transplant at [address] [place] [phone] Marisela Martinez MA Social History Tobacco [...] Recorded In the past 12 months has [employer], [employer], oil, or water [employer] threatened to shut off services in your [...] living in a assisted (including now)? No 01/28/2025 Yearly Questionnaire Answer [...] as of this encounter Care Teams Tanning Drum Operator Relationship Specialty Start Date End Date Enedina Mcguire NP [address] [place] [address] PCP - General Internal Medicine 10/05/24 Maureen Pantoja, ЮЛИЯ Txp Post Coordinator Transplant Hepatology 10/28/24 documented as of this encounter
--- OUTSIDE RECORDS SUMMARY | 2025-03-04 12:06 | XMS_ITS | Encounter Summary ---
Author Organization [facility] Address [address] [place] [address] Care Team Providers Care Tower Switch Operator Name Role Phone Enedina Mcguire NP Primary Care Provider + [phone] Maureen Pantoja RN Unavailable Unavail able Source [...] release of HIV test results or diagnoses. [id number] Health Encounter Details Date Type Department Care Team (Late st Contact Info) Description 02/03/2025 Telephone [facility] Liver Transplant at [address] [address] Marlene Ro MA Social History [...] Recorded In the past 12 months has [employer], gas, oil, or water [employer] threatened to shut off services in your [...] documented as of this encounter Care Teams Tower Switch Operator Relationship Specialty Start Date End Date Enedina Mcguire NP [address] [place] [address] PCP - General Internal Medicine 10/05/24 Maureen Pantoja, RN Txp Post Coordinator Transplant Hepatology 10/28/24 documented as of this encounter
--- OUTSIDE RECORDS SUMMARY | 2025-03-04 12:06 | XMS_ITS | Encounter Summary ---
Author Organization [facility] Address [address] [place] [address] Care Team Providers Care Outdoor Adventure Guides Name Role Phone Enedina Mcguire NP Primary Care Provider + [phone] Maureen Pantoja RN Unavailable Unavail able Source [...] release of HIV test results or diagnoses. [id number] Reason for Visit * Reason Comments Results Encounter Details Date Type Department Care Team (Riky st Contact Info) Description 01/05/2025 Telephone [facility] Liver Transplant at [address] [address] Maureen Pantoja, RN Results Social [...] In the past 12 months has e [employer], gas, oil, or water [employer] threatened to shut off services in [...] of this encounter Care Teams Outdoor Adventure Guides Relationship Specialty Start Date End Date Enedina Mcguire NP [address] [place] [address] PCP - General Internal Medicine 10/05/24 Maureen Pantoja, ЮЛИЯ Txp Post Coordinator Transplant Hepatology 10/28/24 documented as of this encounter
--- OUTSIDE RECORDS SUMMARY | 2025-03-04 12:06 | XMS_ITS | Referral Summary ---
Author Organization [employer] ([place], [place], [place], [place]) Address [address] [place] [address] Care Team Providers Care Block Cuber Name Role Phone Unavailable Primary Care Provider [...]
--- OUTSIDE RECORDS SUMMARY | 2025-03-04 12:06 | XMS_ITS | Encounter Summary ---
Author Organization [employer] ([place], [place], [place], [place]) Address [address] [place] [address] Care Team Providers Care Joiner Helper Name Role Phone Unavailable Primary Care Provider Unavailabl e Encounter Details Date Type Department Care Team (Late st Contact Info) Description 06/03/2018 Transcribed Document [facility] Family Medicine [address] [place] [address] ProviderEbenezer MD [address] [place], [place] [id number] Social History Tobacco Use Types Packs/Day Years [...] - Historical ProviderMD - 06/03/2018 12:08 PM DIGITIZER ED Assessment Entered On: 06/03/2018 14:51 EST Performed On: 06/03/2018 13:50 EST by Lizeth Almeida, BATHROOM TILING PROFESSIONAL Quick Look Assessment Level of Consciousness : Alert Affect/Behavior : Calm, Cooperative Orientation : Oriented x 4 Skin Color : Other: [place] Skin Temperature : Warm Skin Description : Dry Lizeth Almeida, RN - 06/03/2018 14:50 EST ED General-Functional Assess Communication Barrier : None Primary Language : Kyrgyz Any Spiritual/Cultural Needs or Requests : No [...]
--- OUTSIDE RECORDS SUMMARY | 2025-03-04 12:06 | XMS_ITS | Encounter Summary ---
Author Organization [employer] ([place], [place], [place], [place]) Address [address] [place] [address] Care Team Providers Care Regional Marketing Director Name Role Phone Unavailable Primary Care Provider Unavailabl e Encounter Details Date Type Department Care Team (Late st Contact Info) Description 06/03/2018 Transcribed Document [facility] [place] [address] [place] [address] ProviderEbenezer MD [address] [place] [address] Social History Tobacco Use Types [...] - Historical ProviderMD - 06/03/2018 3:04 PM GARMENT FINISHER [place] [address] [facility] [place] [address] PERSON INFORMATION Name JULIEN ZELAYA Age 33 Years 1985 Sex Male Language Greenlandic PCP SALLY EVERETT (REF) T Marital Status Single Med Service Emergency Medicine Acct# Arrival 06/03/2018 12:08:00 Visit Reason Finger laceration; CUT FINGERS Acuity 3 - Urgent LOS 000 02:56 Depart Date: 06/03/18 03:04 PM Address: [address] [facility] [address] Comment: PROVIDER INFORMATION Provider Role Assigned Unassigned Lizeth Almeida, FISHER DIVING Nurse 06/03/2018 12:39:09 DOMINIQUE BREWER PA-C ED [...] PURI # [address] [place], [place] [id number] [employer] ([employer] Within 2 to 3 days Comment: documented in this encounter Plan of Treatment Not on file documented as of this encounter Visit Diagnoses Not on filedocumented in this encounter
--- OUTSIDE RECORDS SUMMARY | 2025-03-04 12:06 | XMS_ITS | Encounter Summary ---
Author Organization [facility] Address [address] [place] [address] Care Team Providers Care Discharge Door Operator Name Role Phone Enedina Mcguire NP Primary Care Provider + [phone] Maureen Pantoja RN Unavailable Unavail able Source [...] release of HIV test results or diagnoses. [id number] Health Encounter Details Date Type Department Care Team (Late st Contact Info) Description 02/03/2025 Chart Note [facility] Liver Transplant at [address] [place] [phone] Marlene Ro MA 02/03 Labs entered from [facility] [...] Recorded In the past 12 months has [employer], gas, oil, or water [employer] threatened to shut off services in your [...] were not included. 02/03 Labs entered from [facility] [...] Positive Norovirus Detected FECES / Unknown Result [facility] Provider BODY FLUIDS AND STOOLS OR DERABLES Edited Result - Final * Phatidylethanol (PEth) (02/03/2025 9:39 AM EDT) Phosphatidylethanol (PEth) Positive 312 Whole Blood Result [facility] LAB BLOOD ORDERABLES Denisse l Result * Tacrolimus level (02/03/2025 9:39 AM EDT) Tacrolimus Lvl 7.0 6 - 15 ng/mL Whole Blood Narrative Resulting Agency Comment Kev TalleyPt Result [facility] LAB BLOOD ORDERABLES Denisse l Result * Cytomegalovirus DNA, Quant, RT PCR (02/03/2025 9:39 AM EDT) CMV Quant DNA PCR (Plasma) Negative Plasma Narrative Resulting Agency Comment Kev TalleyPt Result [facility] LAB BLOOD ORDERABLES Denisse l Result * BK Virus Quantitative by PCR, Blood (02/03/2025 9:39 AM EDT) BK Virus Quant PCR PL Negative Plasma Narrative Resulting Agency Comment [facility] LAB BLOOD ORDERABLES Denisse l Result * Creatinine, urine, random (02/03/2025 9:39 AM EDT) Creatinine, Urine 79 Urine Narrative Resulting Agency Comment Kev [facility] Result [facility] Provider URINE ORDERABLES Final Re sult * Urine Protein, Tot, Random (w/o Creat) (02/03/2025 9:39 AM EDT) Pathologist [facility] Total Protein, Ur 12.0 Urine Narrative Resulting Agency [facility] Result [facility] Provider URINE ORDERABLES Final Re sult * Hepatic Function Panel (02/03/2025 9:39 AM EDT) Pathologist [facility] Bilirubin, Direct 0.1 Bilirubin, Indirect 0.4 Alkaline Phosphatase 61 ALT 15 AST 18 Total Bilirubin 0.5 Total Protein 6.4 Plasma Narrative Resulting Agency Comment Kev [facility] Result [facility] LAB BLOOD ORDERABLES Denisse l Result * (ABNORMAL) Magnesium (02/03/2025 9:39 AM EDT) [facility] Magnesium 1.3(A) 1.6 - 2.4 mg/dL Plasma Narrative Resulting Agency Comment Kev [facility] Result [facility] Provider LAB BLOOD ORDERABLES Denisse l Result * (ABNORMAL) Renal Function Panel w/o EGFR (02/03/2025 9:39 AM EDT) Pathologist [facility] Glucose 114 BUN 17 CO2 28(A) 13 - 22 mmol/L Creatinine 0.90 Potassium 4.1 Sodium 140 Chloride 103 Phosphorus 5.5(A) 2.5 - 4.9 mg/dL Calcium 9.4 EGFR 93 mg/dL Albumin 4.5 3.5 - 5.0 g/dL Blood Narrative Resulting Agency Comment [facility] Result [facility] Provider LAB BLOOD ORDERABLES Denisse l Result * Urinalysis w/Rfl to Microscopic (02/03/2025 9:39 AM EDT) Pathologist [facility] Glucose, UA Negative Negative Ketones, UA Negative Negative Blood, UA Negative Negative Bilirubin, UA Negative Negative Urobilinogen, UA Normal Normal Protein, UA Negative Negative Nitrite, UA Negative Negative pH, UA 6.0 4.5 - 8.0 Specific [place], UA 1.020 1.005 - 1.030 Clarity, UA Clear Clear Color, UA Yellow Light Yellow, Yellow Urine Narrative Resulting Agency Comment [facility] Historical Provider URINE ORDERABLES Final [...] 10^3/mL Blood Narrative Resulting Agency Comment Kev [facility] Historical Provider LAB BLOOD ORDERABLES Denisse l Result documented in this encounter Visit Diagnoses Not on filedocumented in this encounter Additional Health Concerns Infection Onset Date Last Indicated Resolved Time C. difficile 01/28/2025 01/28/2025 Assessment Noted Time PHQ-9 Depression Total Score: 2 12/11/19 25 9:00 AM EDT documented as of this encounter Care Teams Discharge Door Operator Relationship Specialty Start Date End Date Enedina Mcguire NP [address] [place] [address] PCP - General Internal Medicine 10/05/24 Maureen Pantoja, ЮЛИЯ Txp Post Coordinator Transplant Hepatology 10/28/24 documented as of this encounter
--- OUTSIDE RECORDS SUMMARY | 2025-03-04 12:06 | XMS_ITS | Encounter Summary ---
Author Organization [employer] ([place], [place], [place], [place]) Address [address] [place] [address] Care Team Providers Care Food Technician Name Role Phone Unavailable Primary Care Provider Unavailabl e Encounter Details Date Type Department Care Team (Late st Contact Info) Description 06/03/2018 Transcribed Document [facility] Family Medicine [address] [place] [address] ProviderEbenezer MD [address] [place] [address] Social History Tobacco Use Types [...] - Historical ProviderMD - 06/03/2018 12:08 PM FUELER ED Triage Entered On: 06/03/2018 12:17 EST Performed On: 06/03/2018 12:12 EST by KANU VELEZ RN ED Triage Across the Room Triage Date/Time : 06/03/2018 12:12 EST Chief Complaint : lacerations to rt index and left middle finger 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 lacerations noted with bleeding controlled KANU [...] 12:17:41 EST) Problems(Active) HTN (hypertension) (SNOMED CT :[id number] ) Name of Problem: HTN (hypertension) ; Recorder: KANU VELEZ RN; Confirmation: Confirmed ; Classification: Medical ; Code: [id number] ; Contributor System: MirDeneg ; Last Updated: 06/03/2018 12:14 EST ; Life Cycle Date: 06/03/2018 ; Life Cycle Status: Active ; Vocabulary: SNOMED CT Diagnoses(Active) Finger laceration Date: 06/03/2018 ; Diagnosis Type: Reason For Visit ; Confirmation: Complaint of ; Clinical Dx: Finger laceration ; Classification: Medical ; Clinical Service: Emergency medicine ; Code: PNED ; Probability: 0 ; Diagnosis Code: [id number] ED Height and Weight Height Source : Stated Height Entry Format : [place] Height, Feet : 6 ft(Converted to: 183 cm, 72 Inch) Height, Inches : 4 Inch(Converted to: 0 ft 4 Inch, 10.16 cm) Clinical Height : 193.04 cm Weight Source, ED : Standing scale Weight Entry Format : [place] Weight, Pounds : 265 lb Clinical Dosing Weight : 120.45 kg Body Surface Area (BSA) : 2.5 m2 Body Mass Index : 32.3 kg/m2 (HI) Evans Body Weight (IBW) : 85.74 kg KANU [...]
--- OUTSIDE RECORDS SUMMARY | 2025-03-04 12:06 | XMS_ITS | Encounter Summary ---
Author Organization [facility] Address [address] [place] [address] Care Team Providers Care Recreation Clerk Name Role Phone Enedina Mcguire NP Primary Care Provider + [phone] Maureen Pantoja RN Unavailable Unavail able Source [...] release of HIV test results or diagnoses. [id number] Health Encounter Details Date Type Department Care Team (Late st Contact Info) Description 02/09/2025 Chart Note [facility] Liver Transplant at [address] [place] [phone] Marisela Martinez MA Social History Tobacco Use [...] Recorded In the past 12 months has [employer], gas, oil, or water [employer] threatened to shut off services in your [...] as of this encounter Care Teams Recreation Clerk Relationship Specialty Start Date End Date Enedina Mcguire NP [address] [place] [address] PCP - General Internal Medicine 10/05/24 Maureen Pantoja, ЮЛИЯ Txp Post Coordinator Transplant Hepatology 10/28/24 documented as of this encounter
--- OUTSIDE RECORDS SUMMARY | 2025-03-04 12:06 | XMS_ITS | Encounter Summary ---
Author Organization [facility] Address [address] [place] [address] Care Team Providers Care Paper And Prints Restorer Name Role Phone Enedina Mcguire NP Primary Care Provider + [phone] Maureen Pantoja RN Unavailable Unavail able Source [...] release of HIV test results or diagnoses. [id number] Health Encounter Details Date Type Department Care Team (Late st Contact Info) Description 01/14/2025 Telephone [facility] Liver Transplant at [address] [phone] Marlene Ro MA Social History [...] Recorded In the past 12 months has [employer], gas, oil, or water [employer] threatened to shut off services in your [...] as of this encounter Care Teams Paper And Prints Restorer Relationship Specialty Start Date End Date Enedina Mcguire NP [address] [place] [address] PCP - General Internal Medicine 10/05/24 Maureen Pantoja, ЮЛИЯ Txp Post Coordinator Transplant Hepatology 10/28/24 documented as of this encounter
--- OUTSIDE RECORDS SUMMARY | 2025-03-04 12:06 | XMS_ITS | Encounter Summary ---
Author Organization [facility] Address [address] [place] [address] Care Team Providers Care Spring Maker Name Role Phone Enedina Mcguire NP Primary Care Provider + [phone] Maureen Pantoja RN Unavailable Unavail able Source [...] release of HIV test results or diagnoses. [id number] Health Encounter Details Date Type Department Care Team (Late st Contact Info) Description 12/31/2024 Chart Note [facility] Liver Transplant at [address] [place] [phone] Marlene Ro MA 12/31 Labs entered from [facility] Social [...] Recorded In the past 12 months has [employer], gas, oil, or water [employer] threatened to shut [...] 11:59 AM EDT 12/31 Labs entered from [facility] documented [...] Virus Quant PCR PL Negative Plasma Result [facility] LAB BLOOD ORDERABLES Denisse l Result * (ABNORMAL) Magnesium (12/31/2024 9:41 AM EDT) Magnesium 1.2(A) 1.6 - 2.4 mg/dL Plasma Narrative Resulting Agency Comment [facility] Result [facility] LAB BLOOD ORDERABLES Denisse l Result * Hepatic Function Panel (12/31/2024 9:41 AM EDT) Bilirubin, Direct 0.1 Bilirubin, Indirect 0.4 Alkaline Phosphatase 66 ALT 14 AST 22 Total Bilirubin 0.5 Total Protein 6.4 Plasma Narrative Resulting Agency Comment [facility] Result [facility] LAB BLOOD ORDERABLES Denisse l Result * (ABNORMAL) Renal Function Panel w/o EGFR (12/31/2024 9:41 AM EDT) Glucose 91 BUN 18 CO2 26(A) 13 - 22 mmol/L Creatinine 0.90 Potassium 4.2 Sodium 141 Chloride 105 Phosphorus 4.8 2.5 - 4.9 mg/dL Calcium 9.5 EGFR 113 mg/dL Albumin 4.5 3.5 - 5.0 g/dL Blood Narrative Resulting Agency Comment [facility] Result [facility] LAB BLOOD ORDERABLES Denisse l Result * Creatinine, urine, random (12/31/2024 9:41 AM EDT) Creatinine, Urine 57 Urine Narrative Resulting Agency Comment [facility] Result Type Result [facility] URINE ORDERABLES Final Re sult * Urinalysis w/Rfl to Microscopic (12/31/2024 9:41 AM EDT) Glucose, UA Negative Negative Ketones, UA Negative Negative Blood, UA Negative Negative Bilirubin, UA Negative Negative Urobilinogen, UA Normal Normal Protein, UA Negative Negative pH, UA 5.5 4.5 - 8.0 Specific [place], UA 1.025 1.005 - 1.030 Clarity, UA Clear Clear Color, UA Yellow Light Yellow, Yellow Urine Narrative Resulting Agency Comment [facility] Provider URINE ORDERABLES Final Re sult [...] 3.0 10^3/mL Blood Narrative Resulting Agency Comment [facility] Result [facility] Provider LAB BLOOD ORDERABLES Denisse l Result * Urine Protein, Tot, Random (w/o Creat) (12/31/2024 9:41 AM EDT) Total Protein, Ur 17.0 Urine Narrative Resulting Agency Comment [facility] Result [facility] Historical Provider URINE ORDERABLES [...] as of this encounter Care Teams Spring Maker Relationship Specialty Start Date End Date Enedina Mcguire NP [address] [place] [address] PCP - General Internal Medicine 10/05/24 Maureen Pantoja, RN Txp Post Coordinator Transplant Hepatology 10/28/24 documented as of this encounter
--- OUTSIDE RECORDS SUMMARY | 2025-03-04 12:06 | XMS_ITS | Encounter Summary ---
Author Organization [facility] ([place], [place], [place], [place]) Address [address] [place] [address] Care Team Providers Care Eligibility Specialist Name Role Phone Unavailable Primary Care Provider Unavailabl e Encounter Details Date Type Department Care Team (Late st Contact Info) Description 06/03/2018 Transcribed Document [facility] Family Medicine [address] [place] [address] ProviderEbenezer MD [address] [place], [place] [id number] Social History Tobacco Use Types Packs/Day Years [...] - Historical ProviderMD - 06/03/2018 3:03 PM MASTER OCEAN YACHT ED Discharge Entered On: 06/03/2018 15:03 EST Performed On: 06/03/2018 15:03 EST by Lizeth Almeida, bed teacher Process Patient Disposition : Discharge Personal Belongings [...]
--- OUTSIDE RECORDS SUMMARY | 2025-03-04 12:06 | XMS_ITS | Encounter Summary ---
Author Organization [facility] Address [address] [place] [address] Care Team Providers Care Contact Center Specialist Name Role Phone Enedina Mcguire NP Primary Care Provider + [phone] Maureen Pantoja RN Unavailable Unavail able Source [...] release of HIV test results or diagnoses. [id number] Health Encounter Details Date Type Department Care Team (Late st Contact Info) Description 01/15/[address] [facility] Liver Transplant at [address] [phone] Kaylin Willard MSW Social History [...] Recorded In the past 12 months has [employer], gas, oil, or water [employer] threatened to shut off services in [...] continue to utilize these supports. NUBIA Barros, [facility] Transplant Desk Pens Assembler documented in this encounter Plan of Treatment [...] as of this encounter Care Teams Contact Center Specialist Relationship Specialty Start Date End Date Enedina Mcguire NP [address] [place] [address] PCP - General Internal Medicine 10/05/24 Maureen Pantoja, RN Txp Post Coordinator Transplant Hepatology 10/28/24 documented as of this encounter
--- OUTSIDE RECORDS SUMMARY | 2025-03-04 12:06 | XMS_ITS ---
Author Organization [facility] Address [facility] [place] [address] Care Team Providers Care Segment Producer Name Role Phone Enedina Mcguire NP Primary Care Provider + [phone] Maureen Pantoja RN Unavailable Unavail able Chris Orosco MD Unavailable [phone] Transplant Episode Kidney Recipient [facility] [place] Organ Received: Left Kidney Transplanted on 10/27/2024 Marked as Active Follow-up on 10/27/2024 Kidney CoordinatorJosr Weber RN Phone: N/A Fax: N/A Email: N/A Cheesh-[facility] Organ Diagnosis Organ Primary Contributory Kidney Hepatorenal [...] N/A N/A Flaquito Mayen MD Txp Surgeon [phone] N/A Bruno Gonzalez MD Txp Rubber Extrusion Machine Operator [phone] N/A Yovanny Curran MD Referring Physician [phone] N/A Events Post-Transplant Pre-Transplant Admitted: 10/25/2024 Referred: 10/07/2024 Transplanted: 10/27/2024 Evaluation began: 5 Discharged: 11/02/2024 Committee: 10/20/2024 Center waitlisted: 5 Appointments (02/02/2025 - 04/04/2025) When With Visit Type Description 02/25/2025 Tx Renal - Sara Gonzalez Established Patient K idney transplant recipient (Primary Dx); Neck pain with history of cervical spinal surgery; S/P liver transplant (CMS-HCC)
--- OUTSIDE RECORDS SUMMARY | 2025-03-04 12:06 | XMS_ITS | Encounter Summary ---
Author Organization [employer] ([place], [place], [place], [place]) Address [address] [place] [address] Care Team Providers Care Air Breaker Operator Name Role Phone Unavailable Primary Care Provider Unavaillia e Encounter Details Date Type Department Care Team (Late st Contact Info) Description 06/03/2018 Transcribed Document [facility] Family Medicine [address] [place] [address] ProviderEbenezer MD [address] [place], [place] [id number] Social History Tobacco Use Types Packs/Day Years [...] - Historical ProviderMD - 06/03/2018 1:05 PM CADD DRAFTER Patient: JULIEN ZELAYA Age: 33 years Sex: [...] 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 lacerations noted with bleeding controlled [...] EST Height Source Stated Height Entry Format [place] Height/Length, FILIPINO (ft) 6 ft Height/Length FILIPINO 4 Inch CLINICALHEIGHT 193.04 cm [place] Body Weight 85.74 kg Weight Source, ED Standing scale Weight Entry Format [place] Weight Ivorian lb 265 lb CLINICALWEIGHT 120.45 kg Body [...] 14:22 EST, Discharge to: Home. Prescriptions: Prescription Web Development Director Pharmacy: Keflex 500 mg oral capsule [...]
--- OUTSIDE RECORDS SUMMARY | 2025-03-04 12:06 | XMS_ITS | Encounter Summary ---
Author Organization [employer] ([place], [place], [place], [place]) Address [address] [place] [address] Care Team Providers Care Casting Director Name Role Phone Unavailable Primary Care Provider Unavailabl e Encounter Details Date Type Department Care Team (Late st Contact Info) Description 06/03/2018 Transcribed Document [facility] Family Medicine [address] [place] [address] ProviderEbenezer MD [address] [place], [place] [id number] Social History Tobacco Use Types Packs/Day Years [...] - Historical ProviderMD - 06/03/2018 2:24 PM SOCK EXAMINER Electronically signed by Gabriela [facility] Conversion Wireless Internet Installer Cerner at 08/29/2022 6:41 PM CDT documented in this encounter Plan of Treatment Not on file documented as of this encounter Visit Diagnoses Not on filedocumented in this encounter
--- OUTSIDE RECORDS SUMMARY | 2025-03-04 12:06 | XMS_ITS | Encounter Summary ---
Author Organization [facility] Address [address] [place] [address] Care Team Providers Care Medication Administration Professional Name Role Phone Enedina Mcguire NP Primary Care Provider [phone] Maureen Pantoja RN Unavailable Unavail able Source [...] release of HIV test results or diagnoses. [id number] Reason for Visit * Reason Comments Results Encounter Details Date Type Department Care Team (Riky st Contact Info) Description 02/03/2025 Telephone [facility] Liver Transplant at [address] [phone] Mitzy Gill MA Results Social [...] Recorded In the past 12 months has [employer], gas, oil, or water company threatened to [...] EDT Patient ended up being admitted to [facility] (01/27/25-01/30/25) after these tests were ordered but beforehe went to his local lab. Patient tested positive for C.diff at [facility] on 01/28/25. He is currently on Dificid 200 mg BID until 02/06/25. Patient tested negative for Norovirus at [facility] on 01/27/25. Patient's MMF is currently on hold. Will route results to Orp Provider for further review. * Mitzy Gill MA - 02/03/2025 3:23 PM EDT Armida from [facility] called to report critical value [...] documented as of this encounter Care Teams Medication Administration Professional Relationship Specialty Start Date End Date Enedina Mcguire NP [address] [place] [address] PCP - General Internal Medicine 10/05/24 Maureen Pantoja, RN Txp Post Coordinator Transplant Hepatology 10/28/24 documented as of this encounter
--- OUTSIDE RECORDS SUMMARY | 2025-03-04 12:07 | XMS_ITS | Encounter Summary ---
Author Organization [facility] Address [address] [place] [address] Care Team Providers Care In House Counsel Name Role Phone Enedina Mcguire NP Primary Care Provider + [phone] Maureen Pantoja RN Unavailable Unavail able Source [...] release of HIV test results or diagnoses. [id number] Health Encounter Details Date Type Department Care Team (Late st Contact Info) Description 02/12/2025 Social Work [facility] Liver Transplant at [address] [place] [phone] Kaylin Willard MSW Social History Tobacco Use [...] Recorded In the past 12 months has [employer], gas, oil, or water [employer] threatened to shut off services in your [...] for marijuana use and transplant. NUBIA Barros, SMART ENERGY SPECIALIST Transplant Emergency Veterinary Assistant documented in this encounter Plan of Treatment Not on file documented as of this encounter Visit Diagnoses Not on filedocumented in this encounter Additional Health Concerns Infection Onset Date Last Indicated Resolved Time C. difficile 01/28/2025 01/28/2025 Assessment Noted Time PHQ-9 Depression Total Score: 2 12/11/19 25 9:00 AM EDT documented as of this encounter Care Teams In House Counsel Relationship Specialty Start Date End Date Enedina Mcguire NP [address] [place] [address] PCP - General Internal Medicine 10/05/24 Maureen Pantoja, RN Txp Post Coordinator Transplant Hepatology 10/28/24 documented as of this encounter
--- OUTSIDE RECORDS SUMMARY | 2025-03-04 12:07 | XMS_ITS ---
Author Organization [facility] Address [facility] [place] [address] Care Team Providers Care Typing Checker Name Role Phone Enedina Mcguire NP Primary Care Provider + [phone] Maureen Pantoja RN Unavailable Unavail able Chris Orosco MD Unavailable [phone] Transplant Episode Liver Recipient [facility] ([place] [place]) - [facility] Organ Received: Liver Transplanted on 10/26/2024 Marked as Active Follow-up on 10/26/2024 Liver CoordinatorMaureen Pantoja RN Phone: N/A Fax: N/A Email: N/A [place] Organ Diagnosis Organ Primary Contributory Liver Alcohol-Associated [...] N/A N/A Chris Orosco MD Referring Physician Txp Forest Nursery Supervisor [phone] N/A Maureen Pantoja RN Txp Post Coordinator N/A N/A N/A NUBIA Barros Txp High School Sports Coach N/A N/A N/A Harvey Domínguez III, MD Txp Surgeon [phone] N/A Mary Butler RN Txp Pre Coordinator N/A N/A N/A Events Post-Transplant Pre-Transplant Admitted: 10/25/2024 Referred: 08/13/2024 Transplanted: 10/26/2024 Evaluation began: Discharged: 11/02/2024 Committee: 10/14/2024 Center waitlisted: Pending Checklist Tasks (Due on or before 04/04/2025) Name Due Date Attached Appoint ment Social Work Consult 01/05/2025 Appointments (02/02/2025 - 04/04/2025) When With Visit Type Description 02/12/2025 Txp Tabatha Guillen ShaunnaDeepti, Ebony Established Patient Liver transplant recipient ([facility]-HCC) (Primary Dx); History of systemic steroid therapy; Kidney transplant recipient; Immunosuppressive management encounter following liver transplant ([facility]-HCC); Encounter for monitoring tacrolimus therapy; Vitamin D deficiency; Encounter for therapeutic drug monitoring; S/P liver transplant ([facility]-HCC); Hypomagnesemia; Hypertension, unspecified type; Gastroesophageal reflux disease, unspecified whether esophagitis present; Alcohol use disorder; Immunosuppression (CMS-HCC); Viral disease exposure
--- OUTSIDE RECORDS SUMMARY | 2025-03-04 12:07 | XMS_ITS | Clinical Summary ---
Author Organization [employer] [facility] ([place], [place], [place], [place]) Address [address] [place] [address] Care Team Providers Care Complementary Health Therapists Name Role Phone Unavailable Primary Care Provider [...]
--- OUTSIDE RECORDS SUMMARY | 2025-03-04 12:07 | XMS_ITS | Encounter Summary ---
Author Organization [employer] ([place], [place], [place], [place]) Address [address] [place] [address] Care Team Providers Care Box Brander Name Role Phone Unavailable Primary Care Provider Carmen e Encounter Details Date Type Department Care Team (Late st Contact Info) Description 06/03/[address] [facility] Family Medicine [address] [place] [address] ProviderEbenezer MD [address] [place] [address] Social History Tobacco Use Types [...] - Historical ProviderMD - 06/03/2018 3:04 PM [employer] [address] [place] [address] Patient Information Name: JULIEN ZELAYA [...] [address] [place] [address] [place] [address] [employer] (1) Within 2 to 3 days Patient [...] off of the skin. General Instructions??? Take hvzl-egf-kszapbl and prescription medicines only as told by [...] 04/30/2006 Document Revised: 09/29/2016 Document Reviewed: 04/26/2015 [employer] Patient Education ? 2017 [employer] Allergies: No Known Medication Allergies Medication [...] verify that JULIEN ZELAYA was seen at [facility] Emergency Department on ,06/03/2018 15:04:17. [...] Assistance with quitting is available by contacting 2-112-CSWU-NOW. This is a free resource providing counseling, [...] Electronic Communications Privacy Act 18 U.S.C. ???Sections 0144-3895,?? and contain information intended for the specified [...] sure to sign up for the My [facility] patient portal, which gives you 04/12 access to your medical information ??? including these discharge instructions ??? using your computer, smartphone, or tablet. Just go to ReferStar to get started. Questions? Call . Acknowledgment [...] Electronically signed by Luis Eduardo Ochoa Conversion Entry Level Administrative Assistant Celia at 08/29/2022 6:45 PM CDT documented in this encounter Plan of Treatment Not on file documented as of this encounter Visit Diagnoses Not on filedocumented in this encounter
--- OUTSIDE RECORDS SUMMARY | 2025-03-04 12:07 | XMS_ITS | Encounter Summary ---
Author Organization [facility] Address [address] [place] [address] Care Team Providers Care Donation Specialist Name Role Phone Enedina Mcguire NP Primary Care Provider + [phone] Maureen Pantoja RN Unavailable Unavail able Source [...] release of HIV test results or diagnoses. [id number] Health Encounter Details Date Type Department Care Team (Late st Contact Info) Description 02/10/2025 Chart Note [facility] Liver Transplant at [address] [place] [phone] Marlene Ro MA 02/10 Labs entered from [facility] Social History Tobacco Use Types Packs/Day Years Used Date Smoking Tobacco: Former Cigarettes Smokeless Tobacco: Current Alcohol Use Standard Drinks/Week Comments Yes 0 (1 standard drink = 0.6 oz pure alcohol) History of alcohol abuse, reports no use in 3 week- typically endorses use as 4 glasses of wine a days Utilities Answer Date Recorded In the past 12 months has [employer], gas, oil, or water [employer] threatened to shut off services in your [...] were not included. 02/10 Labs entered from [facility] documented in this encounter Plan [...] Phosphatidylethanol (PEth) Positive 288 Whole Blood Result [facility] MD LAB BLOOD ORDERABLES Denisse l Result * BK Virus Quantitative by PCR, Blood (02/10/2025 9:33 AM EDT) [facility] BK Virus Quant PCR PL Negative Plasma Result [facility] MD LAB BLOOD ORDERABLES Denisse l Result * Tacrolimus level (02/10/2025 9:33 AM EDT) [facility] Tacrolimus Lvl 12.5 6 - 15 ng/mL Whole Blood Result [facility] MD LAB BLOOD ORDERABLES Denisse l Result * Cytomegalovirus DNA, Quant, RT PCR (02/10/2025 9:33 AM EDT) [facility] CMV Quant DNA PCR (Plasma) Negative Plasma Result [facility] MD LAB BLOOD ORDERABLES Denisse l Result * (ABNORMAL) Magnesium (02/10/2025 9:33 AM EDT) [facility] Magnesium 1.4(A) 1.6 - 2.4 mg/dL Plasma Narrative Resulting Agency Comment [facility] Result [facility] MD LAB BLOOD ORDERABLES Denisse l Result * (ABNORMAL) Renal Function Panel w/o EGFR (02/10/2025 9:33 AM EDT) [facility] Glucose 101 BUN 15 CO2 26(A) 13 - 22 mmol/L Creatinine 0.90 Potassium 4.1 Sodium 141 Chloride 102 Phosphorus 4.8 2.5 - 4.9 mg/dL Calcium 9.4 EGFR 93 mg/dL Albumin 4.7 3.5 - 5.0 g/dL Blood Narrative Resulting Agency Comment [facility] Result [facility] LAB BLOOD ORDERABLES Denisse l Result * Creatinine, urine, random (02/10/2025 9:33 AM EDT) Creatinine, Urine 62 Urine Narrative Resulting Agency Comment [facility] Result [facility] Provider URINE ORDERABLES Final Re sult * Urinalysis w/Rfl to Microscopic (02/10/2025 9:33 AM EDT) Pathologist [facility] Glucose, UA Negative Negative Ketones, UA Negative Negative Blood, UA Negative Negative Bilirubin, UA Negative Negative Urobilinogen, UA Normal Normal Protein, UA Negative Negative pH, UA 6.0 4.5 - 8.0 Specific [place], UA 1.020 1.005 - 1.030 Clarity, UA Clear Clear Color, UA Yellow Light Yellow, Yellow Urine Narrative Resulting Agency Comment [facility] Result [facility] Provider URINE ORDERABLES Final Re sult [...] 10^3/mL Blood Narrative Resulting Agency Comment [facility] Result [facility] Provider LAB BLOOD ORDERABLES Denisse l Result * Urine Protein, Tot, Random (w/o Creat) (02/10/2025 9:33 AM EDT) Total Protein, Ur 13.0 Urine Narrative Resulting Agency Comment [facility] Provider URINE ORDERABLES Final Re sult * Hepatic Function Panel (02/10/2025 9:33 AM EDT) Bilirubin, Direct 0.4 Bilirubin, Indirect 0.4 Alkaline Phosphatase 74 ALT 16 AST 25 Total Bilirubin 0.7 Total Protein 6.7 Plasma Narrative Resulting Agency Comment [facility] Result [facility] Provider LAB BLOOD ORDERABLES Denisse l Result documented in this encounter Visit Diagnoses Not on filedocumented in this encounter Additional Health Concerns Infection Onset Date Last Indicated Resolved Time C. difficile 01/28/2025 01/28/2025 Assessment Noted Time PHQ-9 Depression Total Score: 2 12/11/19 25 9:00 AM EDT documented as of this encounter Care Teams Donation Specialist Relationship Specialty Start Date End Date Enedina Mcguire NP [address] [place] [address] PCP - General Internal Medicine 10/05/24 Maureen Pantoja, RN Txp Post Coordinator Transplant Hepatology 10/28/24 documented as of this encounter
--- OUTSIDE RECORDS SUMMARY | 2025-03-04 12:07 | XMS_ITS | Encounter Summary ---
Author Organization [facility] Address [address] [place] [address] Care Team Providers Care Peat Shredder Tender Name Role Phone Enedina Mcguire NP Primary Care Provider + [phone] Maureen Pantoja RN Unavailable Unavail able Source [...] release of HIV test results or diagnoses. [id number] Reason for Visit * Reason Comments Results Encounter Details Date Type Department Care Team (Riky st Contact Info) Description 02/12/2025 Telephone [facility] Liver Transplant at [address] [address] Maureen Pantoja, RN Results Social [...] Recorded In the past 12 months has [employer], gas, oil, or water company threatened to [...] as of this encounter Progress Notes * Maurene Pantoja RN - 02/19/2025 10:33 AM EDT [...] documented as of this encounter Care Teams Peat Shredder Tender Relationship Specialty Start Date End Date Enedina Mcguire NP [address] [place] [address] PCP - General Internal Medicine 10/05/24 Maureen Pantoja, ЮЛИЯ Txp Post Coordinator Transplant Hepatology 10/28/24 documented as of this encounter
[2025-03-04 12:37] LABS: Albumin Level 4.8 g/dl (3.5-5.0); Chloride 98 mmol/L (98-107)
[2025-03-04 12:38] LABS: Potassium 3.7 mmoL/L (3.5-5.1); Sodium 138 mmol/L (136-145)
[2025-03-04 12:40] LABS: Alanine Aminotransferase 39 U/L (12-78); Anion Gap 16.7 mEq/L (5-15); Aspartate Amino Transferase 47 U/L (17-59); Bilirubin,Unconjugated 0.7 mg/dL (0.0-1.1); Blood Urea Nitrogen 18 mg/dl (9-20); Carbon Dioxide 27 mmol/L (22.0-30.0); Creatinine,Serum 1.20 mg/dl (0.66-1.25); Estimated Glomerular Filt Rate 67 ml/min (>60); GFR (African American) 81 ML/MIN (>60)
[2025-03-04 12:41] LABS: Alkaline Phosphatase 155 U/L (38-126); Bilirubin,Direct 0.2 mg/dl (0.0-0.4); Bilirubin,Indirect 0.7 mg/dL (0.0-0.9); Bilirubin,Total 0.9 mg/dl (0.2-1.3); Calcium 9.4 mg/dl (8.4-10.2); Glucose 120 mg/dl (74-100); Magnesium 1.4 mg/dl (1.6-2.3); Phosphorous 4.4 mg/dl (2.5-4.5); Total Protein,Serum 7.5 g/dl (6.3-8.2)
[2025-03-04 12:42] LABS: Bilirubin,Urine Negative (Negative); Color,Urine YELLOW (Yellow); Glucose,Urine (UA) Negative (Negative); Ketones,Urine Negative (Negative); Leukocyte Esterase,Urine Negative (Negative); PH,Urine 5.5 (5.0-8.5); Protein,Urine TRACE (Negative); Specific Gravity, Urine 1.020 (1.005-1.030); Urobilinogen,Urine 0.2 EU/dl (0.2)
[2025-03-04 12:55] LABS: 25-OH Vitamin D, Total 38.4 ng/mL (30-100)
[2025-03-04 12:57] LABS: Bacteria,Urine Trace /lpf
[2025-03-08 03:38] LABS: Tacrolimus (FK506), Blood 14.6 ng/mL (5.0-20.0)
== END 2025-03-04 23:59 | disposition home or self-care (01) ==
LOC: LAB 11:20
PROVIDERS: Internal Medicine Gastroenterology; PCP Nurse Practitioner Family; Visit Provider Surgery
DX: E55.9 Vitamin D deficiency, unspecified (principal); Z92.241 Personal history of systemic steroid therapy; Z94.4 Liver transplant status
CPT/HCPCS: 36415; 80069; 80076; 80197; 80321; 81001; 82306; 82570; 83735; 84156; 85025; 87086

== ENCOUNTER 2025-03-10 09:22 | Outpatient (CLI) | payer OTHER, SELFPAY ==
--- OUTSIDE RECORDS SUMMARY | 2024-09-02 14:40 | XMS_ITS | Encounter Summary ---
Author Organization [facility] Address [address] [place] [address] Care Team Providers Care Graphic Arts Technician Name Role Phone Enedina Mcguire NP Primary Care Provider + [phone] Maureen Pantoja RN Unavailable Unavail able Source [...] release of HIV test results or diagnoses. [id number] Reason for Visit * Reason Comments Follow-up Bloating in PT stoma ch * Hospital Discharge Follow-Up (Routine) - Closed Specialty Diagnoses / Procedures Referred By Shane t Referred To Contact Hepatology Feliciano Freeman MD [address] [place] [address] Phone: tel: fax: Referral ID Status Reason Start Date Expiration Date Visits Re quested Visits Authorized [id number] Closed 07/29/2024 01/25/2025 1 1 Encounter Details Date Type Department Care Team (Latest Contact Info) Description 09/02/2024 2:40 PM EDT Office Visit [facility] G[facility]ology at [facility] [address] [facility] [address] [place] [phone] Gerri Peterson MD [address] [place] [address] Cirrhosis of liver with [...] the past 12 months has th e [employer], [employer], oil, or water [employer] threatened to shut off services in your [...] any time in the past 12 m [facility], were you homeless or living in a fci (including now)? No 01/28/2025 Yearly Questionnaire Answer [...] Peterson MD - 09/02/2024 2:40 PM EDT [facility] HEPATOLOGY CLINIC NOTE Chief complaint: [...] worsening ascites and had therapeutic paracentesis at [facility] with about a week prior to this [...] will prefer to have LVP done at [facility]. Will print out paper order for [...] Chris Orosco MD, MPH Transplant hepatology Pager: [phone] documented in this encounter Plan of Treatment Not on file documented as of this encounter Results * (ABNORMAL) CBC (09/02/2024 5:00 PM EDT) WBC 10.4 3.8 - 10.8 10E3/uL 09/02/2024 7:42 PM EDT [facility] RBC 3.13(L) 4.20 - 5.80 10E6/uL 09/02/2024 7:42 PM EDT [facility] Hemoglobin 11.1(L) 13.2 - 17.1 g/dL 09/02/2024 7:42 PM EDT [facility] Hematocrit 30.7(L) 38.5 - 50.0 % 09/02/2024 7:42 PM EDT [facility] MCV 97.9 80.0 - 100.0 fL 09/02/2024 7:42 PM EDT [facility] MCH 35.3(H) 27.0 - 33.0 pg 09/02/2024 7:42 PM EDT [facility] MCHC 36.1(H) 32.0 - 36.0 g/dL 09/02/2024 7:42 PM EDT [facility] RDW 22.7(H) 11.0 - 15.0 % 09/02/2024 7:42 PM EDT [facility] Platelets 73(L) 140 - 400 10E3/uL 09/02/2024 7:42 PM EDT [facility] MPV 9.4 7.5 - 11.5 fL 09/02/2024 7:42 PM EDT [facility] Whole Blood 09/02/2024 5:00 PM EDT 09/02/2024 7:34 PM EDT us Gerri Peterson MD LAB BLOOD ORDERABLES Final Resu lt [facility] [address] documented in this encounter Visit Diagnoses [...] documented as of this encounter Care Teams Graphic Arts Technician Relationship Specialty Start Date End Date Enedina Mcguire NP [address] [place] [address] PCP - General Internal Medicine 10/05/24 Maureen Pantoja, RN Txp Post Coordinator Transplant Hepatology 10/28/24 documented as of this encounter
--- OUTSIDE RECORDS SUMMARY | 2025-01-06 08:20 | XMS_ITS | Encounter Summary ---
Author Organization [facility] Address [address] [place] [address] Care Team Providers Care Bladder Cleaner Name Role Phone Enedina Mcguire NP Primary Care Provider + [phone] Maureen Pantoja RN Unavailable Unavail able Source [...] release of HIV test results or diagnoses. [id number] Reason for Visit * Reason Comments Liver Transplant Follow-up Encounter Details Date Type Department Care Team (Late st Contact Info) Description 01/06/2025 8:20 AM EDT Office Visit [facility] Liver Transplant at [address] [address] Cosmo Pacheco MD [address] [place] [address] Liver/[place] [address] Mahad Alonzo MD [facility] [place] [address] S/P liver transplant (CMS-HCC) (Primary [...] the past 12 months has th e [employer], gas, oil, or water company threatened to [...] Nutrition: patient continues close f/u w/ transplant automation qtp tester. - Bone health: Vit D level to be drawn ~POD#90. - Labs: Labs (CBC w/ diff, renal panel, liver panel, tacro level) weekly. Lipid panel, HgbA1C and Vit D level to be drawn at POD#90, HgbA1C and Vit D level to be drawn at POD#180. - Follow up: RTC 1 month Mahad Alonzo MD Transplant Surgery [phone] [1] Allergies Allergen Reactions Adhesive Itching and [...] documented as of this encounter Care Teams Bladder Cleaner Relationship Specialty Start Date End Date Enedina Mcguire NP [address] [place] [address] PCP - General Internal Medicine 10/05/24 Maureen Pantoja, ЮЛИЯ Txp Post Coordinator Transplant Hepatology 10/28/24 documented as of this encounter
--- OUTSIDE RECORDS SUMMARY | 2025-01-27 18:28 | XMS_ITS | Encounter Summary ---
Author Organization [facility] Address [facility] [place] [address] Care Team Providers Care Cloth Dye Range Operator Name Role Phone Enedina Mcguire NP Primary Care Provider + [phone] Maureen Pantoja RN Unavailable Unavail able Source [...] release of HIV test results or diagnoses. [id number] Reason for Visit * Reason Comments Fever Immunocompromised 89F x1 day ago Diarrhea Headache * Auth/Cert (Routine) Specialty Diagnoses / Procedures Referred By Contac t Referred To Contact Transplant Diagnoses Diarrhea of presumed infectious origin [address] [place] [address] Phone: tel: Referral ID Status Reason Start Date Expiration Date Visits Re quested Visits Authorized [id number] 1 1 Encounter Details Date Type Department Care Team (Latest Contact Info) Description 01/27/2025 6:28 PM EDT - 01/30/2025 2:25 PM EDT Hospital Encounter [address] [place] [address] Sunny Wei MD [address] [address] Lydia Sanchez MD [address] [facility] Liver/[place] [address] Diarrhea of presumed infectious origin (Primary Dx); Immunosuppression ([facility]) Discharge Disposition: Home or Self Care WITHOUT [...] the past 12 months has th e [employer], gas, oil, or water [employer] threatened to shut off services in [...] living in a halfway (including now)? No 01/28/2025 Yearly Questionnaire Answer [...] Tian LSW - 01/30/2025 1:04 PM EDT [facility] Care Management Discharge Summary Patient name: [...] at Discharge: Abdiaziz Gilbert- Family Contact Number: [phone] Plan reviewed with MD and other members of the health care team: Yes Care Plan Completed: Yes No further CM/SW needs. This plan has been reviewed with the multi-disciplinary team. Treatment Preferences Treatment Preferences: Distance Post-Discharge Goals Patient's Post-Discharge goals: Get stronger at home. Post Acute Care Provider Information: Community Services at Discharge Community Services at Home post discharge: Not Applicable RONALDO Garner [phone] * Feliciano Gomez CNP - 01/30/2025 8:39 AM EDT [facility] Inpatient Discharge Summary Patient: Julien Gilbert Age: 39 y.o. [facility]: [id number] Date of Admission: 01/27/2025 Date of Discharge: 01/30/2025 Attending Physician: Lydia Sanchez MD Primary Care Physician: Enedina Mcguire NP Diagnoses Present on Admission Past Medical History: Diagnosis Date Alcoholic cirrhosis of liver (CMS-HCC) Esophageal varices ([facility]) Hepatorenal syndrome ([facility]) Hypertension Other hyperlipidemia 07/26/2024 Renal cell carcinoma ([facility]) Thrombocytopenia ([facility]) Thyroid disease Discharge Diagnoses There are no [...] Your Medications These medications were sent to [facility] [address] [place] [id number] Hours: Sunday - Sunday: 8:00AM - 6:00PM [...] Instructions: Call post-kidney transplant clinic with questions [phone] or call [facility] at [phone] and ask for the kidney front desk coordinator education associate if you experience any of the following: [...] through Care Everywhere. * C. Diff Infection [id number] (Spanish) documented in this encounter Medications at Time of Discharge cyclobenzaprine (FLEXERIL) 5 MG tablet Take 1 tablet (5 mg total) by mouth 3 times a day. 90 tablet 01/30/2025 11:36 AM EDT 5 ergocalciferol (ERGOCALCIFEROL) 1,250 mcg (50,000 unit) capsuleIndications:E ncounter for therapeutic drug monitoring,S/P liver transplant ([facility]),Hypomagnes emia,Kidney transplant recipient,Hypertensi on, unspecified type,Gastroesophagea l [...] counter for therapeutic drug monitoring,S/P liver transplant ([facility]),Hypomagnes emia,Kidney transplant recipient,Hypertensi on, unspecified type,Gastroesophagea l reflux disease, unspecified whether esophagitis present Take 1 tablet by mouth once daily 30 tablet 2 5 predniSONE (DELTASONE) 5 MG tablet Take 2 tablets (10 mg total) by mouth daily. 60 tablet 5 testosterone cypionate 200 mg/mL Kit Inject [...] counter for therapeutic drug monitoring,S/P liver transplant ([facility]),Hypomagnes emia,Kidney transplant recipient,Hypertensi on, unspecified type,Gastroesophagea l [...] ncounter for therapeutic drug monitoring,S/P liver transplant ([facility]),Hypomagnes emia,Kidney transplant recipient,Hypertensi on, unspecified type,Gastroesophagea l [...] ncounter for therapeutic drug monitoring,S/P liver transplant ([facility]),Hypomagnes emia,Kidney transplant recipient,Hypertensi on, unspecified type,Gastroesophagea l reflux disease, unspecified whether esophagitis present Take 2 capsules (500 mg total) by mouth 2 times a day. 120 capsule 5 5 02/27/20 25 tacrolimus (PROGRAF) 1 MG capsuleIndications:P revention of Kidney Transplant Rejection,Prevention of Liver Transplant Rejection Take 5 capsules (5 mg total) by mouth every morning AND 6 capsules (6 mg total) every evening. Use as directed. Indications: Prevention of Kidney Transplant Rejection, Prevention of Liver Transplant Rejection. 330 capsule 5 5 02/27/20 25 documented as of this encounter Progress [...] and treatment with this patient/family. Please page [phone] with any additional questions or concerns. Thank [...] 01/29/2025 \ 0.5 / \ 0.08 / 19 \ / / / 59 \ Lipids 10/07/2024 Value TChol <25 (10/07) Trig 30 (10/07) LDL 4* (10/07) HDL See Note (10/07) PT/INR/PTT - 12/23/2024 PT 10.5 (12/23) INR 0.94 (12/23) PTT 41.7* (10/25) Signed: Bisi Gonzalez MD 01/29/2025 9:15 AM Pager: [phone] * Feliciano Gomez CNP - 01/29/2025 8:12 [...] Wwp : Voids spontaneously Labs: Recent Labs 01/27/25201901/28/2571301/29/25 0555 WBC 2.0* 2.0* 2.4* HGB 12.7* 11.5* 12.8* PLT 109* 86* 119* Recent Labs 01/27/25201901/28/2571301/29/25 0555 NA 136 138 138 K 4.0 [...] plan per attending physician Feliciano Gomez CNP ,MACHINE OVERHAULER Transplant Surgery 01/29/2025 This note was completely [...] plan per attending physician Feliciano Gomez CNP ,MACHINE OVERHAULER Transplant Surgery 01/28/2025 Cosigned by Lydia Sanchez [...] Sevilla MD - 01/27/2025 7:19 PM EDT [facility] ED Note Date of Service: 01/27/2025 Reason [...] Surgery History and Physical Patient: Julien Gilbert [facility]: [id number] History CC: neutropenic fevers, diarrhea HPI: Julien [...] (CMS-HCC) Hepatorenal syndrome ([facility]) Hypertension Other hyperlipidemia 07/26/2024 Renal cell carcinoma [...] Resource Strain: Low Risk (07/09/2024) Received from [facility] Overall Financial Resource Strain [...] Physical Activity: Unknown (07/14/2024) Received from [facility] Exercise Vital Sign Days of Exercise per Week: Patient unable to answer Minutes of Exercise per Session: Not on file Stress: Patient Unable To Answer (07/14/2024) Received from [facility] [place] [facility] Occupational Health - Occupational Stress Questionnaire Feeling of Stress : Patient unable to answer Social Connections: Patient Unable To Answer (07/14/2024) Received from [facility] Social Connection and Isolation Panel [NHANES] Frequency of Communication with Friends and Family: Patient unable to answer Frequency of Social Gatherings with Friends and Family: Patient unable to answer Attends Christian Services: Patient unable to answer Active Member [...] SQH Admit to floor SHELBY BLANCO MD [facility] General Surgery Cosigned by Lydia Sanchez MD [...] this encounter Consult Notes * NUBIA Tian, NONFARM ANIMAL CARETAKER - 01/28/2025 11:02 AM EDT [facility] Alcohol Audit Julien Gilbert [id number] Alcohol Level Alcohol Level obtained?: No [...] Lydia Sanchez MD Patient's Name: Julien Gilbert [facility]: [id number] Reason for Consult Antimicrobial Recommendations Assessment & [...] chicken or bird exposure. Remote cruise to [employer], but no recent international travel. Microbiology Blood [...] pain. Bisi Gonzalez MD Infectious Diseases Pager [phone] * Nahomi Hillman MSW, NONFARM ANIMAL CARETAKER - 01/28/2025 8:21 AM EDT HEALTH Care Management/Social Work Assessment Patient Information Patient Name: Julien Gilbert Hospital Day: 1 Inpatient/Observation: Inpatient Admit Date: 01/27/2025 Admission Diagnosis: Diarrhea of presumed infectious origin [R19.7] Attending provider: Lydia Sanchez MD PCP: Enedina Mcguire NP Home Pharmacy: [facility] [address] [place] [address] [place] [address] Clinic Pharmacy [facility], [facility] [address] [address] [address] [facility] [address] [address] Pertinent Medications Anticoagulation therapy: No New Diabetic: No Issues related to obtaining medications: none Payor Information Medical Insurance Coverage: Payor: [employer] / Plan: [employer] / Product Type: *No Product type* / Secondary Payor: [facility] Functional Assessment Functional Assessment Assessment Information [...] No Status & Connection to VA Services [place] Status & Connection to VA Services Are [...] Patient reported that he is not a Clemons. Patient reported he is employed full- time. [...] or dialysis. Patient has no history of residential facility or inpatient rehabilitation facility admissions. Patient has no history of home health care services. Patient receives outpatient labs at his appointments. PCP: Enedina Mcguire SWCM confirmed with patient/family that there are no additional SWCM needs at this time. SW provided the family with SW contact [phone]. Patient/Family aware and taking part in the [...] are disclosed as appropriate. NUBIA TIAN, RONALDO [phone] documented in this encounter Nursing Notes * [...] and is agreeable. Receiving RN may call [phone] to consult ED RN with questions regarding [...] RN - 01/27/2025 7:07 PM EDT Bed: [facility] Expected date: Expected time: Means [...] Patient will remain free of falls Goal: [place] Fall Precautions Outcome: Progressing Problem: Daily Care [...] Tian LSW - 01/29/2025 11:45 AM EDT [facility] Case Management/Social Work Department Progress Note [...] PCP: Enedina Mcguire NP Home Pharmacy: [facility] - [place], [place] - [address] [facility] [address] [facility] [place], [place] - [address] [facility] [address] [facility] [address] [facility] [address] [place] [address] Medical Insurance Coverage: Payor: [facility] C[facility] / [facility] / Product Type: *No Product type* / Other Pertinent Information SWCM attended multidisciplinary rounds with the Transplant Team. SWCM [facility] is not medically ready to discharge. Patient to receive CT scan. Patient goes outpatient for lab draws. Discharge Plan Anticipated discharge plan: Home w OP labs Anticipated discharge date: 01/30 CM/SW will continue to follow and remain available for discharge planning needs. NUBIA TIAN, RONALDO [phone] * Plan of Care - Vandana Vilchis [...] Patient will remain free of falls Goal: [place] Fall Precautions Outcome: Progressing Problem: Daily Care [...] Patient will remain free of falls Goal: [place] Fall Precautions Outcome: Progressing * ED Medical Screening Exam - NAA Dunn - 01/27/2025 6:36 PM EDT Critical access hospital Emergency Care Provider Note MEDICAL SCREENING EXAM [...] Pending) There is a bed available in [facility] and the patient will be taken [...] Routine 9:30 PM EDT UPPER RESPIRATORY VIRAL/BACTERIAL PANEL-INTERVENTIONAL RADIOLOGY TECHNOLOGIST ONLY Routine 01/27/2025 9:30 PM EDT LACTIC ACID, VENOUS BLOOD GAS STAT 01/27/2025 9:30 PM EDT HISTOPLASMA/BLASTOMYCES AG, EIA, U Routine 01/27/2025 8:44 PM EDT STREP PNEUMO-LEGIONELLA URINE ANTIGEN Routine 01/27/2025 8:44 PM EDT URINALYSIS, MICROSCOPIC STAT 01/28/20 8:44 PM EDT URINALYSIS-MACROSCOPIC W/REFLEX TO MICROSCOPIC STAT 01/27/2025 8:44 PM EDT HISTOPLASMA/BLASTOMYCES AG, EIA, S Routine 01/27/2025 8:20 PM EDT FUNGITELL IELB-A-YTDTEZ Routine 01/28/20 25 8:20 PM EDT CRYPTOCOCCUS ANTIGEN, SERUM Routine [...] - 80.0 % 01/30/2025 8:09 AM EDT [facility] Lymphocytes Relative 43.8 15.0 - 45.0 % 01/30/2025 8:09 AM EDT [facility] Monocytes Relative 14.2(H) 0.0 - 12.0 % 01/30/2025 8:09 AM EDT [facility] Eosinophils Relative 2.2 0.0 - 8.0 % 01/30/2025 8:09 AM EDT [facility] Basophils Relative 0.7 0.0 - 1.0 % 01/30/2025 8:09 AM EDT [facility] nRBC 0 0 - 0 /100 WBC 01/30/2025 8:09 AM EDT [facility] Neutrophils Absolute 782(L) 1,520 - 8,640 /uL 01/30/2025 8:09 AM EDT [facility] Lymphocytes Absolute 876 570 - 4,860 /uL 01/30/2025 8:09 AM EDT [facility] Monocytes Absolute 284 0 - 1,296 /uL 01/30/2025 8:09 AM EDT [facility] Eosinophils Absolute 44 0 - 864 /uL 01/30/2025 8:09 AM EDT [facility] Basophils Absolute 14 0 - 108 /uL 01/30/2025 8:09 AM EDT [facility] Whole Blood 01/30/2025 7:41 AM EDT 01/30/2025 8:01 AM EDT Feliciano Gomez [facility] BLOOD ORDERABLES Final Resu lt [facility] [address] [place] [address], [facility] * Tacrolimus level (01/30/2025 5:51 AM EDT) Tacrolimus (LC-MS) 6.5 3.0 - 15.0 ng/mL 01/30/2025 11:11 AM EDT [facility] Comment:Performed via liquid chromatography tandem mass spectrometry. Detection limit: 1 ng/mL. Individual target concentrations may vary due to target organ and time after transplant. This test has been developed and its performance characteristics determined by [facility] which is certified under the [...] Hill MD LAB BLOOD ORDERABLES Final Result [facility] [address] [facility] [place] [place] [address], [facility] * (ABNORMAL) Renal Function Panel w/EGFR (01/30/2025 5:51 AM EDT) Sodium 139 133 - 146 mmol/L 01/30/2025 7:06 AM EDT [facility] Potassium 3.5 3.5 - 5.3 mmol/L 01/30/2025 7:06 AM EDT [facility] Chloride 105 98 - 110 mmol/L 01/30/2025 7:06 AM EDT [facility] CO2 26 21 - 33 mmol/L 01/30/2025 7:06 AM EDT [facility] Anion Gap 8 3 - 16 mmol/L 01/30/2025 7:06 AM EDT [facility] BUN 29(H) 7 - 25 mg/dL 01/30/2025 7:06 AM EDT [facility] Creatinine 1.14 0.60 - 1.30 mg/dL 01/30/2025 7:06 AM EDT [facility] Glucose 114(H) 70 - 100 mg/dL 01/30/2025 7:06 AM EDT [facility] Calcium 8.7 8.6 - 10.3 mg/dL 01/30/2025 7:06 AM EDT [facility] Phosphorus 5.1(H) 2.1 - 4.7 mg/dL 01/30/2025 7:06 AM EDT [facility] Albumin 4.1 3.5 - 5.7 g/dL 01/30/2025 7:06 AM EDT [facility] Osmolality, Calculated 295 278 - 305 mOsm/kg 01/30/2025 7:06 AM EDT [facility] EGFR 83 01/30/2025 7:06 AM EDT [facility] Comment:As of 2021, the [...] Hill MD LAB BLOOD ORDERABLES Final Result [facility] [address] [id number] * (ABNORMAL) Hepatic Function Panel (01/30/2025 5:51 AM EDT) Total Bilirubin 0.3 0.0 - 1.5 mg/dL 01/30/2025 7:06 AM EDT [facility] Bilirubin, Direct 0.05 0.00 - 0.40 mg/dL 01/30/2025 7:06 AM EDT [facility] AST 13 13 - 39 U/L 01/30/2025 7:06 AM EDT [facility] ALT 14 7 - 52 U/L 01/30/2025 7:06 AM EDT [facility] Alkaline Phosphatase 60 36 - 125 U/L 01/30/2025 7:06 AM EDT [facility] Total Protein 5.9(L) 6.4 - 8.9 g/dL 01/30/2025 7:06 AM EDT [facility] Albumin 4.1 3.5 - 5.7 g/dL 01/30/2025 7:06 AM EDT [facility] Bilirubin, Indirect 0.25 0.00 - 1.10 mg/dL 01/30/2025 7:06 AM EDT [facility] Plasma 01/30/2025 5:51 AM EDT 01/30/2025 6:31 AM EDT Carlton Hill MD LAB BLOOD ORDERABLES Final Result [facility] [address] * Magnesium (01/30/2025 5:51 AM EDT) Magnesium 1.7 1.5 - 2.5 mg/dL 01/30/2025 7:06 AM EDT [facility] Plasma 01/30/2025 5:51 AM EDT 01/30/2025 6:31 AM EDT Carlton Hill MD LAB BLOOD ORDERABLES Final Result [facility] [address] * (ABNORMAL) CBC (01/30/2025 5:51 AM EDT) WBC 2.1(L) 3.8 - 10.8 10E3/uL 01/30/2025 6:41 AM EDT [facility] RBC 3.41(L) 4.20 - 5.80 10E6/uL 01/30/2025 6:41 AM EDT [facility] Hemoglobin 11.2(L) 13.2 - 17.1 g/dL 01/30/2025 6:41 AM EDT [facility] Hematocrit 31.9(L) 38.5 - 50.0 % 01/30/2025 6:41 AM EDT [facility] MCV 93.7 80.0 - 100.0 fL 01/30/2025 6:41 AM EDT [facility] MCH 32.9 27.0 - 33.0 pg 01/30/2025 6:41 AM EDT [facility] MCHC 35.1 32.0 - 36.0 g/dL 01/30/2025 6:41 AM EDT [facility] RDW 14.8 11.0 - 15.0 % 01/30/2025 6:41 AM EDT [facility] Platelets 95(L) 140 - 400 10E3/uL 01/30/2025 6:41 AM EDT [facility] MPV 6.4(L) 7.5 - 11.5 fL 01/30/2025 6:41 AM EDT [facility] Whole Blood 01/30/2025 5:51 AM EDT 01/30/2025 6:33 AM EDT Carlton Hill MD LAB BLOOD ORDERABLES Final Result Performing Organization Address City/State/[facility] Co de Phone Number [facility] [address] * CT Neck With IV contrast [...] cavity, parapharyngeal space, and retropharyngeal space. Normal food service sales representatives space, infratemporal fossa, and buccal space. Infrahyoid [...] CT images of the neck were obtained [id number] mL of IOHEXOL 350 MG IODINE/ML INTRAVENOUS SOLUTION administeredintravenously . Sagittal and coronal 2D multiplanar reconstructions wereperformed at the scanner. COMPARISON: None available FINDINGS: Adequate diagnostic quality. Nasopharynx: Symmetric with no mass. Normal torus tubarius, fossa ofRosenmuller, and adenoid tonsillar tissue. Suprahyoid neck: Normal oropharynx, oral cavity, parapharyngeal space, andretropharyngeal space. Normal food service sales representatives space, infratemporal fossa, andbuccal space. Infrahyoid neck: [...] MD at 01/29/2025 2:41 PM EDT Feliciano Gomez CNP IMG CT ORDERABLES Final Result * Tacrolimus level (01/29/2025 5:55 AM EDT) Tacrolimus (LC-MS) 9.1 3.0 - 15.0 ng/mL 01/29/2025 9:10 AM EDT [facility] Comment:Performed via liquid chromatography tandem mass spectrometry. Detection limit: 1 ng/mL. Individual target concentrations may vary due to target organ and time after transplant. This test has been developed and its performance characteristics determined by [facility] which is certified under the [...] Hill MD LAB BLOOD ORDERABLES Final Result [facility] [address] [place] [address], [facility] * (ABNORMAL) Renal Function Panel w/EGFR (01/29/2025 5:55 AM EDT) Sodium 138 133 - 146 mmol/L 01/29/2025 7:13 AM EDT [facility] Potassium 3.9 3.5 - 5.3 mmol/L 01/29/2025 7:13 AM EDT [facility] Chloride 102 98 - 110 mmol/L 01/29/2025 7:13 AM EDT [facility] CO2 27 21 - 33 mmol/L 01/29/2025 7:13 AM EDT [facility] Anion Gap 9 3 - 16 mmol/L 01/29/2025 7:13 AM EDT [facility] BUN 23 7 - 25 mg/dL 01/29/2025 7:13 AM EDT [facility] Creatinine 1.39(H) 0.60 - 1.30 mg/dL 01/29/2025 7:13 AM EDT [facility] Glucose 108(H) 70 - 100 mg/dL 01/29/2025 7:13 AM EDT [facility] Calcium 9.6 8.6 - 10.3 mg/dL 01/29/2025 7:13 AM EDT [facility] Phosphorus 5.6(H) 2.1 - 4.7 mg/dL 01/29/2025 7:13 AM EDT [facility] Albumin 4.8 3.5 - 5.7 g/dL 01/29/2025 7:13 AM EDT [facility] Osmolality, Calculated 290 278 - 305 mOsm/kg 01/29/2025 7:13 AM EDT [facility] EGFR 65 01/29/2025 7:13 AM EDT [facility] Comment:As of 2021, the [...] ORDERABLES Final Result Performing Organization Address [facility] Co de Phone Number [facility] [address] [facility]. [address] * Hepatic Function Panel (01/29/2025 5:55 AM EDT) Total Bilirubin 0.5 0.0 - 1.5 mg/dL 01/29/2025 7:13 AM EDT [facility] Bilirubin, Direct 0.08 0.00 - 0.40 mg/dL 01/29/2025 7:13 AM EDT [facility] AST 19 13 - 39 U/L 01/29/2025 7:13 AM EDT [facility] ALT 19 7 - 52 U/L 01/29/2025 7:13 AM EDT [facility] Alkaline Phosphatase 59 36 - 125 U/L 01/29/2025 7:13 AM EDT [facility] Total Protein 7.0 6.4 - 8.9 g/dL 01/29/2025 7:13 AM EDT [facility] Albumin 4.8 3.5 - 5.7 g/dL 01/29/2025 7:13 AM EDT [facility] Bilirubin, Indirect 0.42 0.00 - 1.10 mg/dL 01/29/2025 7:13 AM EDT [facility] Plasma 01/29/2025 5:55 AM EDT 01/29/2025 6:41 AM EDT Carlton Hill MD LAB BLOOD ORDERABLES Final Result [facility] [address] [facility]. [address] * Magnesium (01/29/2025 5:55 AM EDT) Magnesium 2.5 1.5 - 2.5 mg/dL 01/29/2025 7:13 AM EDT [facility] Plasma 01/29/2025 5:55 AM EDT 01/29/2025 6:41 AM EDT Carlton Hill MD LAB BLOOD ORDERABLES Final Result [facility] [address] [place] [address] * (ABNORMAL) CBC (01/29/2025 5:55 AM EDT) WBC 2.4(L) 3.8 - 10.8 10E3/uL 01/29/2025 6:53 AM EDT [facility] RBC 3.88(L) 4.20 - 5.80 10E6/uL 01/29/2025 6:53 AM EDT [facility] Hemoglobin 12.8(L) 13.2 - 17.1 g/dL 01/29/2025 6:53 AM EDT [facility] Hematocrit 36.6(L) 38.5 - 50.0 % 01/29/2025 6:53 AM EDT [facility] MCV 94.1 80.0 - 100.0 fL 01/29/2025 6:53 AM EDT [facility] MCH 32.9 27.0 - 33.0 pg 01/29/2025 6:53 AM EDT [facility] MCHC 34.9 32.0 - 36.0 g/dL 01/29/2025 6:53 AM EDT [facility] RDW 14.8 11.0 - 15.0 % 01/29/2025 6:53 AM EDT [facility] Platelets 119(L) 140 - 400 10E3/uL 01/29/2025 6:53 AM EDT [facility] MPV 6.2(L) 7.5 - 11.5 fL 01/29/2025 6:53 AM EDT [facility] Whole Blood 01/29/2025 5:55 AM EDT 01/29/2025 6:41 AM EDT Carlton Hill MD LAB BLOOD ORDERABLES Final Result [facility] [address] * Sed Rate (01/29/2025 5:55 AM EDT) Sed Rate 2 0 - 15 mm/hr 01/29/2025 7:03 AM EDT [facility] Whole Blood 01/29/2025 5:55 AM EDT 01/29/2025 6:41 AM EDT Feliciano Gomez [facility] BLOOD ORDERABLES Final Resu lt Performing Organization Address City/[facility] Co de Phone Number [facility] [address] * C-Reactive Protein (01/29/2025 5:55 AM EDT) Pathologist [facility] CRP 4.1 1.0 - 10.0 mg/L 01/29/2025 7:13 AM EDT [facility] Plasma 01/29/2025 5:55 AM EDT 01/29/2025 6:41 AM EDT Feliciano Gomez [facility] BLOOD ORDERABLES Final Resu lt Performing Organization Address [facility] de Phone Number [facility] [address] [facility]. [address] * Giardia Cryptosporidium Antigens (Feces) (01/28/2025 9:27 PM EDT) Pathologist [facility] Cryptosporidium Ag Negative Negative 2024 8:03 AM EDT [facility] Giardia Ag Negative Negative 01/29/2025 8:03 AM EDT [facility] Comment: Detection of Giardia and Cryptosporidium antigen is more sensitive and specific than microscopy. Because antigens are shed continuously, repeat testing is rarely warranted. Feces 01/28/2025 9:27 PM EDT 01/28/2025 10:07 PM EDT Comment:F Ruby Chiang MD MICROBIOLOGY - GENERAL ORDERAB LES Final Result Performing Organization Address City/[facility]/ZIP Co de Phone Number [facility] [address] * Ova and Parasite Comprehensive w/Giardia (Feces) (01/28/2025 9:27 PM EDT) [facility] O & P Method: Concentration and Trichrome Stain [facility] Results No Amoeba, Ova, Or Parasites Seen. -- O and P examination of additional specimens is recommended only for symptomatic patients, immunosuppressed patients or those with an appropriate travel history. [facility] Feces FECES / Unknown 01/28/2025 9 :27 PM EDT 01/28/2025 10:07 PM EDT Comment:F Ruby Chiang MD MICROBIOLOGY - GENERAL ORDERAB LES Final Result Performing Organization Address [facility]/ZIP Co de Phone Number [facility] [address] [facility]. [address] * Clostridium Difficile Toxin A/B Antigen (01/28/2025 1:21 PM EDT) [facility] CDIFF Tox AGN Negative Negative 01/28/2025 10:35 PM EDT [facility] Comment:C. difficile nucleic acid testing is positive but toxin antigen testing is negative. Please note that antigen testing is less sensitive than nucleic acid testing and cannot distinguish disease from colonization. Interpret results with caution and in the context of the clinical presentation of the patient. Stool, Liquid 01/28/2025 1:2 1 PM EDT 01/28/2025 9:59 PM EDT Comment:F Feliciano Gomze CNP BODY FLUIDS AND STOOLS ORDERABL ES Final Result Performing Organization Address City/[facility]/ZIP Co de Phone Number [facility] [address] [facility]. [address] * (ABNORMAL) Clostridium difficile DNA Amplification (01/28/2025 1:21 PM EDT) [facility] Clost. Diff DNA Amp. Positive( A) Negative 01/28/2025 11:22 PM EDT [facility] Comment:Positive indicates t oxigenic C. difficile was detected in the sample. Negative indicates that toxigenic C. difficile was not detected above the limit of the detection of the assay. The test methodology is a FDA approved DNA amplification assay. Stool, Liquid FECES / Unknown 01/28/2025 1:21 PM EDT 01/28/2025 1:48 PM EDT Comment:F Feliciano Garcia Jason [facility] BODY FLUIDS AND STOOLS ORDERABL ES Final Result Performing Organization Address City/State/[facility] Co de Phone Number [facility] [address], [place] [address] * Phosphatidylethanol Confirmation, B (01/28/2025 [...] a week) (Reference: Zhanna Grayson and Declan Phillisp 2018 J. Forensic Sci) PETH 16:0/18.2 (PLPETH) [...] its performance characteristics determined by [facility] in a manner consistent with CLIA requirements. This test has not been cleared or approved by the U.S. Food and Drug Administration. Test Performed by: [facility] [address] [place] [address] Physician Ophthalmologist: Kathy Ortiz Ph.D.; CLIA# [id number] Whole Blood 01/28/2025 7:14 AM EDT 01/30/2025 9:58 AM EDT Carlton Hill MD LAB BLOOD ORDERABLES Final Result Performing Organization Address [facility] Co de Phone Number [facility] [address] * (ABNORMAL) Tacrolimus level (01/28/2025 7:14 AM EDT) Pathologist [facility] Tacrolimus (LC-MS) 16.4(H) 3.0 - 15.0 ng/mL 01/28/2025 12:41 PM EDT [facility] Comment:Performed via liquid chromatography tandem mass spectrometry. Detection limit: 1 ng/mL. Individual target concentrations may vary due to target organ and time after transplant. This test has been developed and its performance characteristics determined by [facility] which is certified under the [...] ORDERABLES Final Result Performing Organization Address [facility] Co de Phone Number [facility] [address] [facility]. [address] * Renal Function Panel w/EGFR (01/28/2025 7:14 AM EDT) Sodium 138 133 - 146 mmol/L 01/28/2025 9:00 AM EDT [facility] Potassium 3.7 3.5 - 5.3 mmol/L 01/28/2025 9:00 AM EDT [facility] Chloride 102 98 - 110 mmol/L 01/28/2025 9:00 AM EDT [facility] CO2 26 21 - 33 mmol/L 01/28/2025 9:00 AM EDT [facility] Anion Gap 10 3 - 16 mmol/L 01/28/2025 9:00 AM EDT [facility] BUN 17 7 - 25 mg/dL 01/28/2025 9:00 AM EDT [facility] Creatinine 1.14 0.60 - 1.30 mg/dL 01/28/2025 9:00 AM EDT [facility] Glucose 91 70 - 100 mg/dL 01/28/2025 9:00 AM EDT [facility] Calcium 9.3 8.6 - 10.3 mg/dL 01/28/2025 9:00 AM EDT [facility] Phosphorus 4.4 2.1 - 4.7 mg/dL 01/28/2025 9:00 AM EDT [facility] Albumin 4.2 3.5 - 5.7 g/dL 01/28/2025 9:00 AM T [facility] Osmolality, Calculated 287 278 - 305 mOsm/kg 01/28/2025 9:00 AM EDT [facility] EGFR 83 01/28/2025 9:00 AM T [facility] Comment:As of 2021, the [...] Hill MD LAB BLOOD ORDERABLES Final Result [facility] [address] * (ABNORMAL) Hepatic Function Panel (01/28/2025 7:14 AM EDT) Total Bilirubin 0.8 0.0 - 1.5 mg/dL 01/28/2025 9:00 AM EDT [facility] Bilirubin, Direct 0.14 0.00 - 0.40 mg/dL 01/28/2025 9:00 AM EDT [facility] AST 17 13 - 39 U/L 01/28/2025 9:00 AM EDT [facility] ALT 19 7 - 52 U/L 01/28/2025 9:00 AM EDT [facility] Alkaline Phosphatase 45 36 - 125 U/L 01/28/2025 9:00 AM EDT [facility] Total Protein 6.2(L) 6.4 - 8.9 g/dL 01/28/2025 9:00 AM EDT [facility] Albumin 4.2 3.5 - 5.7 g/dL 01/28/2025 9:00 AM EDT [facility] Bilirubin, Indirect 0.66 0.00 - 1.10 mg/dL 01/28/2025 9:00 AM EDT [facility] Plasma 01/28/2025 7:14 AM EDT 01/28/2025 8:22 AM EDT Carlton Hill MD LAB BLOOD ORDERABLES Final Result [facility] [address] * (ABNORMAL) Magnesium (01/28/2025 7:14 AM EDT) Magnesium 1.1(L) 1.5 - 2.5 mg/dL 01/28/2025 9:00 AM EDT [facility] Plasma 01/28/2025 7:14 AM EDT 01/28/2025 8:22 AM EDT Carlton Hill MD LAB BLOOD ORDERABLES Final Result [facility] [address] [facility]. [address] * (ABNORMAL) CBC (01/28/2025 7:14 AM EDT) WBC 2.0(L) 3.8 - 10.8 10E3/uL 01/28/2025 9:10 AM EDT [facility] RBC 3.36(L) 4.20 - 5.80 10E6/uL 01/28/2025 9:10 AM EDT [facility] Hemoglobin 11.5(L) 13.2 - 17.1 g/dL 01/28/2025 9:10 AM EDT [facility] Hematocrit 31.0(L) 38.5 - 50.0 % 01/28/2025 9:10 AM EDT [facility] MCV 92.4 80.0 - 100.0 fL 01/28/2025 9:10 AM EDT [facility] MCH 34.2(H) 27.0 - 33.0 pg 01/28/2025 9:10 AM EDT [facility] MCHC 37.0(H) 32.0 - 36.0 g/dL 01/28/2025 9:10 AM EDT [facility] RDW 14.9 11.0 - 15.0 % 01/28/2025 9:10 AM EDT [facility] Platelets 86(L) 140 - 400 10E3/uL 01/28/2025 9:10 AM EDT [facility] MPV 6.2(L) 7.5 - 11.5 fL 01/28/2025 9:10 AM EDT [facility] Whole Blood 01/28/2025 7:14 AM EDT 01/28/2025 8:22 AM EDT Carlton Hill MD LAB BLOOD ORDERABLES Final Result [facility] [address] [facility]. [address] * CT Head WO contrast (01/28/2025 [...] Detected 01/28/2025 3:11 AM EDT [facility] Vibrio Group (Vibrio cholerae, Vibrio parahaemolyticus) Not Detected Not Detected 01/28/2025 3:11 AM EDT [facility] Yersinia enterocolitica Not Detected Not Detected 01/28/2025 3:11 AM EDT [facility] Shiga toxin 1 Not Detected Not Detected 01/28/2025 3:11 AM EDT [facility] Shiga toxin 2 Not Detected Not Detected 01/28/2025 3:11 AM EDT [facility] Norovirus Not Detected Not Detected 01/28/2025 3:11 AM EDT [facility] Rotavirus Not Detected Not Detected 01/28/2025 [...] FLUIDS AND STOOLS ORDERABLE S Final Result [facility] [address] [place] [address], [facility] * Respiratory viral panel (01/27/2025 9:30 PM EDT) Adenovirus Not Detected Not Detected 01/28/2025 12:20 AM EDT [facility] Coronavirus (229E,HKU1,NL63,OC 43) Not Detected Not Detected 01/28/2025 12:20 AM EDT [facility] SARS-CoV-2 Not Detected Not Detected 01/28/2025 12:20 AM EDT [facility] Human Metapneumovirus Not Detected Not Detected 01/28/2025 12:20 AM EDT [facility] Human Rhinovirus/Enterov irus Not Detected Not Detected 01/28/2025 12:20 AM EDT [facility] Influenza A Not Detected Not Detected 01/28/2025 12:20 AM EDT [facility] Influenza A H1 Not Detected Not Detected 01/28/2025 12:20 AM EDT [facility] Influenza A/H1-2009 Not Detected Not Detected 01/28/2025 12:20 AM EDT [facility] Influenza A H3 Not Detected Not Detected 01/28/2025 12:20 AM EDT [facility] Influenza B Not Detected Not Detected 01/28/2025 12:20 AM EDT [facility] Parainfluenza 1 Not Detected Not Detected 01/28/2025 12:20 AM EDT [facility] Parainfluenza 2 Not Detected Not Detected 01/28/2025 12:20 AM EDT [facility] Parainfluenza 3 Not Detected Not Detected 01/28/2025 12:20 AM EDT [facility] Parainfluenza 4 Not Detected Not Detected 01/28/2025 12:20 AM EDT [facility] Resp. Syncycial Virus A Not Detected Not Detected 01/28/2025 12:20 AM EDT [facility] Resp. Syncycial Virus B Not Detected Not Detected 01/28/2025 12:20 AM EDT [facility] Chlamydia pneumoniae Not Detected Not Detected 01/28/2025 12:20 AM EDT [facility] Mycoplasma pneumoniae Not Detected Not Detected 01/28/2025 12:20 AM EDT [facility] Comment: The Respiratory Viral-Bacterial Panel [...] results have been sent to the [facility] in accordance with state requirements. For a fact sheet for healthcare providers, see https://www.fda.gov/media/965651/download. For a fact sheet for patients, see https://www.fda.gov/media/526268/download. Nasopharyngeal Swab NASOPHARYNGEAL STRUCTURE / Unknown 01/27/2025 9:30 PM EDT 01/27/2025 10:20 PM EDT us Shelby Blanco MD BODY FLUIDS AND STOOLS ORDERABLE S Final Result [facility] [address] * Lactic acid, venous, whole blood (01/27/2025 9:30 PM EDT) Lactate, Shakeel 1.4 0.5 - 1.6 mmol/L 01/27/2025 9:42 PM EDT [facility] Blood, Venous 01/27/2025 9:3 0 PM EDT 01/27/2025 9:39 PM EDT us Pamela JACOME LAB BLOOD ORDERABLES Final Res ult Performing Organization Address [facility] Co de Phone Number [facility] [address] * (ABNORMAL) Urinalysis, Microscopic (01/27/2025 8:44 PM EDT) RBC, UA <1 0 - 3 /HPF 01/27/2025 9:32 PM EDT [facility] WBC, UA 1 0 - 5 /HPF 01/27/2025 9:32 PM EDT [facility] Hyaline Casts, UA 75(H) 0 - 2 /LPF 01/27/2025 9:32 PM EDT [facility] Mucus, UA Present(A) None Seen /HPF 01/27/2025 9:32 PM EDT [facility] Urine 01/27/2025 8:44 PM EDT 01/27/2025 9:01 PM EDT Pamela JACOME URINE ORDERABLES Final Result Performing Organization Address [facility] Co de Phone Number [facility] [address] [facility]. [address] * Strep Pneumo-Legionella Urine Antigen (01/27/2025 8:44 PM EDT) Strept Pneumo Ag Negative Negative 01/27/2025 11:12 PM EDT [facility] Legionella Antigen Negative Negative 01/27/2025 11:12 PM EDT [facility] Urine URINE SPECIMEN / Unknown 01/27/2025 8:44 PM EDT 01/27/2025 10:21 PM EDT Narrative [facility] - 01/27/2025 11:12 PM EDT Positive indicates detection of either Streptococcus pneumoniae antigen or Legionella pneumophila serogroup 1 antigen. Negative results do not rule out pneumococcal infection or infection with L. pneumophila serogroup 1, other serogroups of L. pneumophila, or other Legionella species. Shelby Blanco MD URINE ORDERABLES Final Result Performing Organization Address [facility] Co de Phone Number [facility] [address] [facility]. [address] * Histoplasma/Blastomyces Ag, EIA, U (01/27/2025 8:44 PM EDT) Histoplasma/Blasto myces Ag Result (Urine) Not Detected Not Detected 01/31/2025 11:06 AM EDT [facility] Comment: No antigen from Histoplasma or Blastomyces detected. False negative results may occur depending on extent of disease, and/or site of infection. Repeat testing on a new specimen if clinically indicated. Histoplasma/Blasto myces Ag Value (Urine) Not Detected ng/mL 01/31/2025 11:06 AM EDT [facility] Comment: ADDITIONAL INFORMATION This test was developed and its performance characteristics determined by [facility] in a manner consistent with CLIA requirements. This test has not been cleared or approved by the U.S. Food and Drug Administration. Test Performed by: [facility] [place] [address] Physician Ophthalmologist: Kathy Ortiz Ph.D.; CLIA# [id number] Urine URINE SPECIMEN / Unknown 01/27/2025 8:44 PM EDT 01/31/2025 11:06 AM EDT Shelby Blanco MD URINE ORDERABLES Final Result Performing Organization Address [facility] Co de Phone Number [facility] [address] [facility]. [address] * (ABNORMAL) Urinalysis-Macroscopic w/Rfx to Microsco (01/27/2025 8:44 PM EDT) Color, UA Yellow Yellow,Straw 01/27/2025 9:32 PM EDT [facility] Clarity, UA Clear Clear 01/27/2025 9:32 PM EDT [facility] Specific [place], UA 1.015 1.005 - 1.035 01/27/2025 9:32 PM EDT [facility] pH, UA 5.5 5.0 - 8.0 01/27/2025 9:32 PM EDT [facility] Protein, UA 30(A) Negative mg/dL 01/27/2025 9:32 PM EDT [facility] Glucose, UA Negative Negative mg/dL 01/27/2025 9:32 PM EDT [facility] Ketones, UA 20(A) Negative mg/dL 01/27/2025 9:32 PM EDT [facility] Bilirubin, UA Negative Negative 01/27/2025 9:32 PM EDT [facility] Blood, UA Negative Negative 01/27/2025 9:32 PM EDT [facility] Nitrite, UA Negative Negative 01/27/2025 9:32 PM EDT [facility] Urobilinogen, UA <2.0 0.2 - 1.9 mg/dL 01/27/2025 9:32 PM EDT [facility] Leukocyte Esterase, UA Negative Negative 01/27/2025 9:32 PM EDT [facility] Urine 01/27/2025 8:44 PM EDT 01/27/2025 8:53 PM EDT us Pamela JACOME URINE ORDERABLES Final Result Performing Organization Address City/State/[facility] Co de Phone Number [facility] [address] [place] [address], [facility] * Phosphatidylethanol Confirmation, B (01/27/2025 8:20 PM EDT) PETH 16:0/18.1 (POPETH) 446 Cutoff: 10 ng/mL 01/30/2025 9:59 AM EDT [facility] Comment: Phosphatidylethanol (PEth) homologues [...] Cutoff: 10 ng/mL 01/30/2025 9:59 AM EDT [facility] Comment: PEth 16:0/18:2 (PLPEth) Reference ranges are not well established PEth Interpretation Positive. 01/30 9:59 AM EDT [facility] Comment: ADDITIONAL INFORMATION This report is intended for use in clinical monitoring and management of patients. It is not intended for use in employment-related testing. This test was developed and its performance characteristics determined by [facility] in a manner consistent with CLIA requirements. This test has not been cleared or approved by the U.S. Food and Drug Administration. Test Performed by: [facility] [place] [address] Physician Ophthalmologist: Kathy Ortiz Ph.D.; CLIA# [id number] Whole Blood 01/27/2025 8:20 PM EDT 01/30/2025 9:59 AM EDT us Shelby Blanco MD LAB BLOOD ORDERABLES Final Resul t [facility] [address] [facility] [place] [address], [facility] * BK PCR, Blood (Renal Txp and BMT only) (01/27/2025 8:20 PM EDT) BKV IU DNA Quant, Blood Not Detected IU/mL 01/29/2025 1:48 PM EDT [facility] Comment: Beginning August 23, 2021, [facility] has transitioned BK viral load testing from [...] log 10 IU/mL 01/29/2025 1:48 PM EDT [facility] Comment:BKV DNA Not Detected Plasma 01/27/2025 8:20 PM EDT 01/27/2025 9:49 PM EDT us Shelby Blanco MD LAB BLOOD ORDERABLES Final Resul t [facility] [address] [place] [address], [facility] * Histoplasma/Blastomyces Ag, EIA, S (01/27/2025 8:20 PM EDT) Histoplasma/Blasto myces Ag Result (Serum) Not Detected Not Detected 01/30/2025 12:49 PM EDT [facility] Comment: No antigen from Histoplasma or Blastomyces detected. False negative results may occur depending on extent of disease, and/or site of infection. Repeat testing on a new specimen if clinically indicated. Histoplasma/Blasto myces Ag Value (Serum) Not Detected ng/mL 01/30/2025 12:49 PM EDT [facility] Comment: ADDITIONAL INFORMATION This test was developed and its performance characteristics determined by [facility] in a manner consistent with CLIA requirements. This test has not been cleared or approved by the U.S. Food and Drug Administration. Test Performed by: [facility] [place] [id number] [place] [address] Physician Ophthalmologist: Kathy Ortiz Ph.D.; CLIA# [id number] Serum SERUM SPECIMEN / Unknown 01/27/2025 8:20 PM EDT 01/30/2025 12:49 PM EDT Comment:S us Shelby Blanco MD LAB BLOOD ORDERABLES Final Resul t [facility] [address] [place] [address], [facility] * Fungitell (01/27/2025 8:20 PM EDT) Fungitell Value <31.25 pg/mL 4:19 PM EDT [facility] Reference Value Comment 4:19 PM EDT [facility] Comment:Negative: <60, Posit bradley: >/=60 Clinical Relevance Notes 2024 4:19 PM EDT [facility] Comment: The Fungitell test is [...] Cryptococcus, which produce very low levels of (1,3)-xbgf-A-oeijpt. This test will not detect the zygomycetes, such as Absidia, Blastomyces, Mucor, and Rhizopus, which are not known to produce (1,3)-kigg-L-umgelu. In addition, the yeast phase of Blastomyces dermatitidis produces little (1,3)-rgrx-N-dgkiuw and may not be detected by the assay. Disclaimer: Notes 02/02/2025 4:19 PM EDT [facility] Comment: This test has been cleared or approved for diagnostic use by the U.S. Food and Drug Administration. Performance characteristics were verified by [employer]. Electronically signed by: Comment 02/02/2025 4:19 PM EDT [facility] Comment:Usha Landin Fungitell Result Comment 02/03/20 4:19 PM EDT [facility] Comment:Negative Interpretation Notes 02/02/2025 4:19 PM EDT [facility] Comment: (1,3) Hptt-L-Ncbzwx was NOT DETECTED in the sample. Reasons for negative results could include the patient being in the early stage of infection before detectable levels of (1,3) Aorr-E-Qxlics are present. Clinical diagnosis should be made in the context of the patient's complete medical history. Serum 01/27/2025 8:20 PM EDT 02/02/2025 5:07 PM EDT Narrative [facility] - 02/02/2025 5:07 PM EDT PERFORMED AT: [email or web address] [address] [place], [place] [id number] [employer] MACHINE TENDER: Cyril Porter, PhD PHONE: [phone] us Shelby Blanco MD LAB BLOOD ORDERABLES Final Resul t [facility] [address] [place] [address], [facility] * Katie-Schafer Virus (EBV) PCR (01/27/2025 8:20 PM EDT) Pathologist [facility] EBV DNA, Quantitative PCR Not Detected IU/mL 01/28/2025 10:54 AM EDT [facility] EBV DNA, Log10 See Note log 10 IU/mL 01/28/2025 10:54 AM EDT [facility] Comment: Beginning September 05, 2022, [facility] has transitioned EBV viral load testing to [...] MD LAB BLOOD ORDERABLES Final Resul t [facility] [address] [facility]. [address] * Cryptococcus Ag (01/27/2025 8:20 PM EDT) Crypto Ag, Ser Negative Negative 01/27/2025 11:41 PM EDT [facility] Crypto Ag Titer, Ser Not Applicable 01/27/2025 11:41 PM EDT [facility] Serum SERUM SPECIMEN / Unknown 01/27/2025 8:20 PM EDT 01/27/2025 10:04 PM EDT Comment:S Shelby Blanco MD LAB BLOOD ORDERABLES Final Resul t Performing Organization Address City/[facility]/ZIP Co de Phone Number [facility] [address] [facility]. [address] * Cytomegalovirus (CMV) PCR (01/27/2025 8:20 PM EDT) CMV DNA Qnt Not Detected IU/mL 01/29/2025 12:09 PM EDT [facility] Comment:Test methodology for CMV DNA quantification is an FDA-approved nucleic acid amplification assay. The Lower Limit of Quantitation (LLOQ) and Limit of Detection (LoD) for EDTA plasma is 34.5 IU/mL. The linear range of the assay is 34.5- 10,000,000 IU/mL. The reference range is Not Detected. Log10 CMV Qn DNA PI See Note log 10 IU/mL 01/29/2025 12:09 PM EDT [facility] Comment:CMV DNA not detected Plasma 01/27/2025 8:20 PM EDT 01/27/2025 9:49 PM EDT us Shelby Blanco MD LAB BLOOD ORDERABLES Final Resul t [facility] [address] [facility]. [address] * Fungus culture, blood (Blood) (01/27/2025 8:20 PM EDT) Culture Result No Fungus Isolated At 4 Weeks [facility] Blood SERUM SPECIMEN / Unknown 01/27/2025 8:20 PM EDT 01/27/2025 9:50 PM EDT Comment:S Shelby Blanco MD MICROBIOLOGY - GENERAL ORDERABLE S Final Result Performing Organization Address [facility] Co de Phone Number [address] * Aspergillus Ag (01/27/2025 8:20 PM EDT) Pathologist [facility] Aspergillus Ag. 0.03 0.00 - 0.49 Index 01/30/2025 5:54 PM EDT [facility] Serum SERUM SPECIMEN / Unknown 01/27/2025 8:20 PM EDT 01/31/2025 4:23 AM EDT Comment:S Shelby Blanco MD BODY FLUIDS AND STOOLS ORDERABLE S Final Result Performing Organization Address [facility] de Phone Number [facility] [address] [place] [address]. [address] * Adenovirus PCR (01/27/2025 8:20 PM EDT) Adenovirus, Quantitative PCR 0 0 - 0 copies/mL 02/03/2025 1:12 PM EDT [facility] Comment: Testing performed by [facility], [address] [place] [address]. This test(s) was developed and its performance characteristics determined and validated by the Department of Pathology and Laboratory Medicine at [facility]. It has not been cleared or [...] 8:20 PM EDT 02/03/2025 1:12 PM EDT us Shelby Blanco MD LAB BLOOD ORDERABLES Final Resul t Performing Organization Address City/[facility] Co de Phone Number [facility] [address] [place] [address]. [address] * Blood culture-Peripheral (Blood) (01/27/2025 8:20 PM EDT) Culture Result No Growth After 5 Days [facility] Blood BLOOD SPECIMEN / Unknown 01/27/2025 8:20 PM EDT 01/27/2025 9:57 PM EDT Pamela JACOME MICROBIOLOGY - GENERAL ORDERAB LES Final Result Performing Organization Address [facility] Co de Phone Number [facility] [address] [place] [address]. [address] * Blood culture-Peripheral (Blood) (01/27/2025 8:20 PM EDT) Culture Result No Growth After 5 Days [facility] Blood BLOOD SPECIMEN / Unknown 01/27/2025 8:20 PM EDT 01/27/2025 9:58 PM EDT Pamela JACOME MICROBIOLOGY - GENERAL ORDERAB LES Final Result Performing Organization Address City/[facility] Co de Phone Number [facility] [address] [place] [address]. [address] * (ABNORMAL) Lipase (01/27/2025 8:20 PM EDT) Lipase 3(L) 4 - 82 U/L 01/27/2025 9:0 3 PM EDT [facility] Plasma 01/27/2025 8:20 PM EDT 01/27/2025 8:34 PM EDT Pamela JACOME LAB BLOOD ORDERABLES Final Res ult [facility] [address] * Hepatic Function Panel (01/27/2025 8:20 PM EDT) Total Bilirubin 0.9 0.0 - 1.5 mg/dL 01/27/2025 9:03 PM EDT [facility] Bilirubin, Direct 0.1 0.0 - 0.4 mg/dL 01/27/2025 9:03 PM EDT [facility] AST 20 13 - 39 U/L 01/27/2025 9:03 PM EDT [facility] ALT 26 7 - 52 U/L 01/27/2025 9:03 PM EDT [facility] Alkaline Phosphatase 55 36 - 125 U/L 01/27/2025 9:03 PM EDT [facility] Total Protein 7.0 6.4 - 8.9 g/dL 01/27/2025 9:03 PM EDT [facility] Albumin 5.0 3.5 - 5.7 g/dL 01/27/2025 9:03 PM EDT [facility] Bilirubin, Indirect 0.8 0.0 - 1.1 mg/dL 01/27/2025 9:03 PM EDT [facility] Plasma 01/27/2025 8:20 PM EDT 01/27/2025 8:34 PM EDT Pamela JACOME LAB BLOOD ORDERABLES Final Res ult [facility] [address] * (ABNORMAL) Differential (01/27/2025 8:20 PM EDT) Pathologist [facility] Differential Comments See Note 01/27/2025 10:02 PM EDT [facility] Comment: _Platelets Appear Decreased _Platelet Morphology Normal Scan Result PERFORMED 01/27/2025 10:02 PM EDT [facility] Neutrophils Relative 50.9 40.0 - 80.0 % 01/27/2025 10:02 PM EDT [facility] Lymphocytes Relative 39.0 15.0 - 45.0 % 01/27/2025 10:02 PM EDT [facility] Monocytes Relative 7.3 0.0 - 12.0 % 01/27/2025 10:02 PM EDT [facility] Eosinophils Relative 1.3 0.0 - 8.0 % 01/27/2025 10:02 PM EDT [facility] Basophils Relative 1.5(H) 0.0 - 1.0 % 01/27/2025 10:02 PM EDT [facility] nRBC 1(H) 0 - 0 /100 WBC 01/27/2025 10:02 PM EDT [facility] Neutrophils Absolute 1,018(L) 1,520 - 8,640 /uL 01/27/2025 10:02 PM EDT [facility] Lymphocytes Absolute 780 570 - 4,860 /uL 01/27/2025 10:02 PM EDT [facility] Monocytes Absolute 146 0 - 1,296 /uL 01/27/2025 10:02 PM EDT [facility] Eosinophils Absolute 26 0 - 864 /uL 01/27/2025 10:02 PM EDT [facility] Basophils Absolute 30 0 - 108 /uL 01/27/2025 10:02 PM EDT [facility] PLT Morphology Platelet morphology appears normal 01/27/2025 10:02 PM EDT [facility] Whole Blood 01/27/2025 8:20 PM EDT 01/27/2025 8:57 PM EDT us Pamela JACOME LAB BLOOD ORDERABLES Final Res ult [facility] [address] [id number], [facility] * (ABNORMAL) CBC (01/27/2025 8:20 PM EDT) WBC 2.0(L) 3.8 - 10.8 10E3/uL 01/27/2025 10:02 PM EDT [facility] RBC 3.81(L) 4.20 - 5.80 10E6/uL 01/27/2025 10:02 PM EDT [facility] Hemoglobin 12.7(L) 13.2 - 17.1 g/dL 01/27/2025 10:02 PM EDT [facility] Hematocrit 35.1(L) 38.5 - 50.0 % 01/27/2025 10:02 PM EDT [facility] MCV 92.2 80.0 - 100.0 fL 01/27/2025 10:02 PM EDT [facility] MCH 33.3(H) 27.0 - 33.0 pg 01/27/2025 10:02 PM EDT [facility] MCHC 36.1(H) 32.0 - 36.0 g/dL 01/27/2025 10:02 PM EDT [facility] RDW 14.7 11.0 - 15.0 % 01/27/2025 10:02 PM EDT [facility] Platelets 109(L) 140 - 400 10E3/uL 01/27/2025 10:02 PM EDT [facility] Platelet Estimate Decreased 01/27/2025 10:02 PM EDT [facility] MPV 6.4(L) 7.5 - 11.5 fL 01/27/2025 10:02 PM EDT [facility] Whole Blood 01/27/2025 8:20 PM EDT 01/27/2025 8:57 PM EDT Narrative [facility] - 01/27/2025 10:02 PM EDT Peripheral blood smear was scanned per review criteria approved by the laboratory medical laboratory scientist. us Pamela JACOME LAB BLOOD ORDERABLES Final Res ult [facility] [address] [facility] [place] [place] [address], [facility] * Hemoglobin A1c (01/27/2025 8:20 PM EDT) Hemoglobin A1C 4.0 4.0 - 5.6 % 01/27/2025 11:49 PM EDT [facility] Comment: Hemoglobin A1c Interpretation [...] PM EDT 01/27/2025 8:57 PM EDT Narrative [facility] - 01/27/2025 11:49 PM EDT A1C project?->Yes us Pamela JACOME LAB BLOOD ORDERABLES Final Res ult [facility] [address] [facility] [place] [address], [facility] * Basic metabolic panel (01/27/2025 8:20 PM EDT) Sodium 136 133 - 146 mmol/L 01/27/2025 9:03 PM EDT [facility] Potassium 4.0 3.5 - 5.3 mmol/L 01/27/2025 9:03 PM EDT [facility] Chloride 100 98 - 110 mmol/L 01/27/2025 9:03 PM EDT [facility] CO2 25 21 - 33 mmol/L 01/27/2025 9:03 PM EDT [facility] Anion Gap 11 3 - 16 mmol/L 01/27/2025 9:03 PM EDT [facility] BUN 16 7 - 25 mg/dL 01/27/2025 9:03 PM EDT [facility] Creatinine 1.02 0.60 - 1.30 mg/dL 01/27/2025 9:03 PM EDT [facility] Glucose 93 70 - 100 mg/dL 01/27/2025 9:03 PM EDT [facility] Calcium 9.7 8.6 - 10.3 mg/dL 01/27/2025 9:03 PM EDT [facility] Osmolality, Calculated 283 278 - 305 mOsm/kg 01/27/2025 9:03 PM EDT [facility] EGFR >90 01/27/2025 9:03 PM EDT [facility] Comment: As of 2021, the [...] JACOME LAB BLOOD ORDERABLES Final Res ult [facility] [address] [facility]. [place] [id number], [facility] * X-ray Chest PA and [...] Diarrhea of presumed infectious origin- Primary Immunosuppression ([facility]) documented in this encounter Administered Medications Inactive [...] solution 75 mL/hr, Intravenous, Continuous, Starting on Tish 01/29/25 at 1230 New Bag 01/30/2025 12:36 AM [...] once as needed, contrast, Starting on Tish 9/18/25 at 1428, For 1 dose Given 01/29/2025 [...] Mock RN)0824 (Given - Provider: Mery Sullivan RN)2038 (Given - Provider: Darrius Hahn RN) 0907 [...] Gladis Tello RN)1956 (Given - Provider: Darrius Hahn, ЮЛИЯ) 0933 (Given - Provider: Elba Vargas RN) [...] Sullivan RN)1229 (Given - Provider: Mery Sullivan RN)2038 (Given - Provider: Darrius Hahn RN) 0907 (Given - Provider: Gladis Tello RN)1528 (Given - Provider: Gladis Tello RN)235 (Given - Provider: Vandana Vilchis RN) 0933 [...] FOR 12 HOURS,THEN REMOVE FOR 12 HOURS. 826 (Patch Applied - Provider: Mery Sullivan RN [...] dose 1717 (New Bag - Provider: Meka Montalvo, ЮЛИЯ) magnesium sulfate in sterile water 50 mL IVPB 2 g (COMPLETED) 2 g, Intravenous, Administer over 120 Minutes, Once, On Sun01/30/25 at 0730, For 1 dose, For Mag 1.6 - 1.7 0946 (New Bag - Provider: Elba Vargas, ЮЛИЯ) methocarbamoL (ROBAXIN) tablet 1,000 mg 1,000 mg, [...] Elba Vargas, ЮЛИЯ)1235 (Given - Provider: Elba Vargas, ЮЛИЯ) mycophenolate (CELLCEPT) capsule 500 mg 500 [...] Mery Sullivan RN - Reason: Patient/family refused) 09 (Not Given - Provider: Gladis Tello RN - Reason: Patient/family refused) 0934 (Not Given - Provider: Elba Vargas RN - Reason: Patient/family refused) NIFEdipine (PROCARDIA-XL) 24 hr tablet 30 mg 30 mg, Oral, Daily, First dose on Sun01/28/25 at 0900, DO NOT CRUSH 0824 (Given - Provider: Mery Sullivan RN) 09 (Given - Provider: Gladis Tello, ЮЛИЯ) 0933 (Given - Provider: Elba Vargas, ЮЛИЯ) predniSONE (DELTASONE) tablet 10 mg 10 mg, [...] HAZARDOUS MEDICATION 1911 (Given - Provider: Gladis Tello RN) 0621 (Given - Provider: Vandana Vilchis [...] 1230 1532 (New Bag - Provider: Gladis Tello RN) 0036 (New Bag - Provider: Vandana [...] Vandana Vilchis, ЮЛИЯ)1529 (Given - Provider: Gladis Tello RN)2352 (Given - Provider: Vandana Vilchis RN) OMNIPAQUE [...] documented as of this encounter Care Teams 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
--- OUTSIDE RECORDS SUMMARY | 2025-02-12 10:50 | XMS_ITS | Encounter Summary ---
Author Organization [facility] Address [address] [place] [address] Care Team Providers Care Die Maker Name Role Phone Enedina Mcguire NP Primary Care Provider + [phone] Maureen Pantoja RN Unavailable Unavail able Source [...] release of HIV test results or diagnoses. [id number] Reason for Referral * Diagnostic Lab (Routine) - New Request Specialty Diagnoses / Procedures Referred By Shane hernadez Referred To Contact Diagnoses Liver transplant recipient (CMS-HCC) Kidney transplant recipient Immunosuppression ([facility]) Viral disease exposure Procedures BK Virus Quantitative by PCR, Blood [facility] Liver Transplant at [address] [address] Phone: tel: fax: Referral ID Status Reason Start Date Expiration Date V isits Requested Visits Authorized [id number] New Request 02/12/2025 08/11/2025 1 1 * Diagnostic Lab (Routine) - New Request Specialty Diagnoses / Procedures Referred By Contac t Referred To Contact Diagnoses Liver transplant recipient ([facility]) Kidney transplant recipient Immunosuppression ([facility]) Viral disease exposure Procedures BK Virus Quantitative by PCR, Blood [facility] Liver Transplant at [address] [address] Phone: tel: fax: Referral ID Status Reason Start Date Expiration Date V isits Requested Visits Authorized [id number] New Request 02/12/2025 08/11/2025 1 1 * Diagnostic Lab (Routine) - New Request Specialty Diagnoses / Procedures Referred By Contac t Referred To Contact Diagnoses Liver transplant recipient (CMS-HCC) Kidney transplant recipient Immunosuppression (CMS-HCC) Viral disease exposure Procedures BK Virus Quantitative by PCR, Blood [facility] Liver Transplant at [address] [address] Phone: tel: fax: Referral ID Status Reason Start Date Expiration Date V isits Requested Visits Authorized [id number] New Request 02/12/2025 08/11/2025 1 1 Reason for Visit * Reason Comments Liver Transplant Follow-up Encounter Details Date Type Department Care Team (Late st Contact Info) Description 02/12/2025 10:50 AM EDT Office Visit [facility] Liver Transplant at [address] [address] Chris Orosco MD [address] [place] [phone] Liver transplant recipient (CMS-HCC) (Primary Dx); [...] the past 12 months has th e [employer], oil, or water [employer] threatened to shut off services in your [...] Chris Orosco MD, MPH Transplant hepatology Pager: [phone] * Maureen Pantoja RN - 02/12/2025 10:50 [...] of systemic steroid therapy Liver transplant recipient ([facility]) Kidney transplant recipient Immunosuppressive management encounter following liver transplant ([facility]) Encounter for monitoring tacrolimus therapy Vitamin D deficiency 1 Occurrences starting 02/12/2025 until 08/27/2025 Vitamin D 25 hydroxy Lab Routine History of systemic steroid therapy Vitamin D deficiency 1 Occurrences starting 02/12/2025 until 08/27/2025 Hepatic Function Panel Lab Routine S/P liver transplant ([facility]) Immunosuppression ([facility]) weekly for 52 Occurrences starting 02/12/2025 until 02/12/2026 Renal Function Panel w/EGFR Lab Routine S/P liver transplant ([facility]) Immunosuppression ([facility]) weekly for 52 Occurrences starting 02/12/2025 until 02/12/2026 CBC Lab Routine S/P liver transplant ([facility]) Immunosuppression ([facility]) weekly for 52 Occurrences starting 02/12/2025 until 02/12/2026 Differential Lab Routine S/P liver transplant ([facility]) Immunosuppression ([facility]) weekly for 52 Occurrences starting 02/12/2025 until 02/12/2026 Tacrolimus level Lab Routine S/P liver transplant ([facility]) Immunosuppression ([facility]) weekly for 52 Occurrences starting 02/12/2025 until 02/12/2026 Cytomegalovirus DNA, Quant, RT PCR Lab Routine S/P liver transplant ([facility]) Immunosuppression ([facility]) Viral disease exposure Expected: 02/24/2025 (Approximate), Expires: 08/27/2025 Cytomegalovirus DNA, Quant, RT PCR Lab Routine S/P liver transplant ([facility]) Immunosuppression ([facility]) Viral disease exposure Expected: 03/10/2025 (Approximate), Expires: 08/27/2025 BK Virus Quantitative by PCR, Blood Lab Routine Liver transplant recipient ([facility]) Kidney transplant recipient Immunosuppression ([facility]) Viral disease exposure Expected: 04/28/2025 (Approximate), Expires: 08/13/2026 BK Virus Quantitative by PCR, Blood Lab Routine Liver transplant recipient ([facility]) Kidney transplant recipient Immunosuppression ([facility]) Viral disease exposure Expected: 07/27/2025 (Approximate), Expires: 08/27/2025 BK Virus Quantitative by PCR, Blood Lab Routine Liver transplant recipient ([facility]) Kidney transplant recipient Immunosuppression ([facility]) Viral disease exposure Expected: 10/27/2025 (Approximate), Expires: 08/13/2026 Phosphatidylethanol Confirmation, B Lab Routine Liver transplant recipient ([facility]) Kidney transplant recipient Alcohol use disorder weekly for 52 Occurrences starting 02/12/2025 until 02/12/2026 Magnesium Lab Routine Liver transplant recipient ([facility]) Kidney transplant recipient Immunosuppressive management encounter following liver transplant ([facility]) weekly for 52 Occurrences starting 02/12/2025 until 02/12/2026 Post Kidney Transplant Urine Culture Microbiology Routine Liver transplant recipient ([facility]) Kidney transplant recipient Immunosuppressive management encounter following liver transplant ([facility]) weekly for 52 Occurrences starting 02/12/2025 until 08/13/2026 Urinalysis w/Rfl to Microscopic Lab Routine Kidney transplant recipient Immunosuppressive management encounter following liver transplant ([facility]) weekly for 52 Occurrences starting 02/12/2025 until 08/13/2026 Protein / creatinine ratio, urine Lab Routine Kidney transplant recipient Immunosuppressive management encounter following liver transplant ([facility]) weekly for 52 Occurrences starting 02/12/2025 until 08/13/2026 Microalbumin (Random UR) Lab Routine Kidney transplant recipient Immunosuppressive management encounter following liver transplant ([facility]) weekly for 52 Occurrences starting 02/12/2025 until 08/13/2026 documented as of this encounter Visit Diagnoses Diagnosis Liver transplant recipient ([facility])- Primary History of systemic steroid therapy Personal history of systemic steroid therapy Kidney transplant recipient Immunosuppressive management encounter following liver transplant ([facility]) Encounter for monitoring tacrolimus therapy Vitamin D deficiency Unspecified vitamin D deficiency Encounter for therapeutic drug monitoring S/P liver transplant ([facility]) Hypomagnesemia Disorders of magnesium metabolism Hypertension, unspecified type Gastroesophageal reflux disease, unspecified whether esophagitis present Alcohol use disorder Immunosuppression ([facility]) Viral disease exposure Contact with or exposure to other viral diseases documented in this encounter Additional Health Concerns Infection Onset Date Last Indicated Resolved Time C. difficile 01/28/2025 01/28/2025 Assessment Noted Time PHQ-9 Depression Total Score: 2 12/11/19 25 9:00 AM EDT documented as of this encounter Care Teams Die Maker Relationship Specialty Start Date End Date Enedina Mcguire NP [address] [place] [address] PCP - General Internal Medicine 10/05/24 Maureen Pantjoa, ЮЛИЯ Txp Post Coordinator Transplant Hepatology 10/28/24 documented as of this encounter
--- OUTSIDE RECORDS SUMMARY | 2025-02-17 15:15 | XMS_ITS | Encounter Summary ---
Author Organization [facility] Address [address] [place] [address] Care Team Providers Care Milk Wagon Driver Name Role Phone Enedina Mcguire APRN Primary Care Provider + Reason for Visit * Reason Comments Follow-up Patient following up after liver and kidney transplant. Patient stated he's doing good. Encounter Details Date Type Department Care Team (Late st Contact Info) Description 02/17/2025 3:15 PM EDT Office Visit [facility] INTERNAL MEDICINE [address] [place] [address] Enedina Mcguire APRN [address] [place] [address] Encounter for follow-up (Primary Dx); [...] Recorded In the past 12 months has [employer], gas, oil, or water [employer] threatened to shut off services [...] Brief Depression Severity Measure Score 0 10/02/2022 [facility] of Occupat ional Health - Occupational [...] and liver. Patient continues to follow under [facility]. Letter was sent in October regarding instructions recommendations for this patient. As stated at about 3 months posttransplant patient will be transition to one of our transplant irrigation teacher group for continuity where they willmanage his liver perspective. liver transplant patient is assigned a posttransplant nurse coordinator Patient did request an updated refill of his once weekly vitamin D supplement Overall patient states he is feeling well. He continues to follow with [facility] about once every 2 months and does have frequent blood work completed Patient states that his liver transplant specialist did provide him clearance to restart on testosterone therapy. Will reach out to [facility] for further confirmation regarding this. Last [...] Surgeon: Presley Montes De Oca MD; Location: [facility]; Service: Gastroenterology; Laterality: N/A; ENDOSCOPY N/A 07/29/2022 Procedure: ESOPHAGOGASTRODUODENOSCOPY; Surgeon: Presley Montes De Oca MD; Location: [facility]; Service: Gastroenterology; Laterality: N/A; WITH APC LIVER TRANSPLANTATION 10/2024 NECK SURGERY 11/22/2000 C 4/5 corpectomy c3-6 ant fusion SPINAL FUSION 2000 c3-6 acdf and c4-5 corpectomy; Dr. Garnder, Dr. Mcelroy TRANSPLANTATION RENAL Right 10/2024 Social [...] , Rfl: vitamin D (ERGOCALCIFEROL) 1.25 MG (32645 UT) capsule capsule, Take 1 capsule by [...] deficiency - vitamin D (ERGOCALCIFEROL) 1.25 MG (77104 UT) capsule capsule; Take 1 capsule by [...] will reach out to his provider at [facility] for further confirmation of clearance [...] of this note may be an electronic mechanical expert/translation of spoken language to printed textusing the Metagenicsation System. documented in this encounter Plan of Treatment Upcoming Encounters Date Type Department Care Team (Late st Contact Info) Description 05/18/2025 2:30 PM EST Office Visit [facility] INTERNAL MEDICINE [address] [place] [phone] Enedina Mcguire APRN [address] [place] [address] 05/21/2025 12:30 PM EST Office Visit [facility] PAIN MANAGEMENT [address] [phone] Vazquez Christie PA-C [address] [place] [address] [place], [place] [phone] Scheduled Orders Name Type Priority Associated Diagnoses [...] as of this encounter Care Teams Milk Wagon Driver Relationship Specialty Start Date End Date Enedina Mcguire APRN [address] [place] [address] PCP - General Nurse Practitioner 10/27/24 documented as of this encounter
--- OUTSIDE RECORDS SUMMARY | 2025-02-19 07:45 | XMS_ITS | Encounter Summary ---
Author Organization [facility] Address [address] [place] [address] Care Team Providers Care Twisting Frame Changer Name Role Phone Enedina Mcguire APRN Primary Care Provider + Reason for Visit * Surgical (Routine) - Closed Specialty Diagnoses / Procedures Referred By Shane t Referred To Contact Pain Medicine Diagnoses Cervical radiculopathy Procedures External Facility Surgical/Procedural Request Tye Song MD [address] [place] [address] Phone: tel: fax: [facility] AT [address] [address] Phone: tel: fax: Referral ID Status Reason Start Date Expiration Date V isits Requested Visits Authorized [id number] Closed Other 01/08/2025 04/09/2026 1 1 Encounter Details Date Type Department Care Team (Late st Contact Info) Description 02/19/2025 7:45 AM EDT Outside Facility Service [facility] PAIN MANAGEMENT [address] [address] Tye Song MD [address] [place] [address] Social History Tobacco Use Types Packs/Day Years Used Date Smoking Tobacco: Former Cigarettes 4 20 Passive Smoke Exposure: Past Smokeless Tobacco: Current Comments:MARIJUANA USE ABOUT 2X PER WEEK - reports no use 03-25-2025 Alcohol Use Standard Drinks/Week Comments Not Currently 0 (1 standard drink = 0.6 oz pure alcohol) 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 [facility] Utilities Answer Date Recorded In the [...] Brief Depression Severity Measure Score 0 10/02/2022 [facility] - Occupational Stress Questionnaire Answer [...] GED or equivalent No 07/09/2024 Preferred Language Korean 07/09/2024 PHQ-2 Answer Date Recorded Patient Health [...] 05/18/2025 2:30 PM EST Office Visit [facility] INTER[facility] MEDIC[facility] [address] [place] [address] Enedina Mcguire, CROSS COUNTRY TRUCK DRIVER [address] [place], [place] [id number] 05/21/2025 12:30 PM EST Office Visit [facility] PAIN MANAGEMENT 3000 [facility] 330 [place] [address] Vazquez Christie PA-C 1760 [facility] [address] [place] [address] documented as of this encounter Visit Diagnoses Not on filedocumented in this encounter Additional Health Concerns Assessment Noted Time PHQ-2 Depression Total Score: 1 12/31/19 24 3:25 PM EDT documented as of this encounter Care Teams Twisting Frame Changer Relationship Specialty Start Date End Date Enedina Mcguire APRN [address] [place] [address] PCP - General Nurse Practitioner 10/27/24 documented as of this encounter
--- OUTSIDE RECORDS SUMMARY | 2025-02-25 10:50 | XMS_ITS | Encounter Summary ---
Author Organization [address] [address] Care Team Providers Care Analytics Lead Name Role Phone Enedina Mcguire NP Primary Care Provider + [phone] Maureen Pantoja RN Unavailable Unavail able Source [...] release of HIV test results or diagnoses. [id number] Reason for Referral * Physician/SAWYER (Routine) - Denied Specialty Diagnoses / Procedures Referred By Shane t Referred To Contact Pain Medicine Diagnoses Kidney transplant recipient Neck pain with history of cervical spinal surgery S/P liver transplant ([facility]) [facility] Kidney Transplant at [address] [address] Phone: tel: fax: Referral ID Status Reason Start Date Expiration Date Visits Re quested Visits Authorized [id number] Denied 02/25/2025 08/24/2025 1 0 Scheduling Instructions For appointments, please call [phone]. Reason for Visit * Reason Comments Kidney Transplant Follow-up Encounter Details Date Type Department Care Team ([facility] Contact Info) Description 02/25/2025 10:50 AM EDT Office Visit [facility] Kidney Transplant at [facility] [address] [facility] [address] [place] [phone] Carlton Wright MD [address], [facility] [address] [place] [phone] Kidney transplant recipient (Primary Dx); Neck pain [...] the past 12 months has th e [employer], [employer], [employer], or water [email or web address] threatened to shut off services in your [...] Strain: Low Risk (07/09/2024) Received from [facility] Overall Financial Resource Strain (CARDIA) Difficulty [...] Received from [facility] Exercise Vital Sign Days of Exercise per Week: Patient unable to answer Minutes of Exercise per Session: Not on file Stress: Patient Unable To Answer (07/14/2024) Received from [facility] [place] of Occupational Health - Occupational Stress Questionnaire Feeling of Stress : Patient unable to answer Social Connections: Patient Unable To Answer (07/14/2024) Received from [facility] Social Connection and Isolation Panel [NHANES] Frequency [...] Results Component Value Date PTH 36.0 10/25/2024 [id number] 7.1 (L) 10/08/2024 Hemoglobin A1C: Lab Results [...] documented as of this encounter Care Teams Analytics Lead Relationship Specialty Start Date End Date Enedina Mcguire NP [address] [place] [address] PCP - General Internal Medicine 10/05/24 Maureen Pantoja, ЮЛИЯ Txp Post Coordinator Transplant Hepatology 10/28/24 documented as of this encounter
--- OUTSIDE RECORDS SUMMARY | 2025-03-03 13:45 | XMS_ITS | Encounter Summary ---
Author Organization [facility] Address [address] [place] [address] Care Team Providers Care Wood Model Builder Name Role Phone Enedina Mcguire APRN Primary Care Provider + Reason for Referral * Surgical (Routine) - Authorized Specialty Diagnoses / Procedures Referred By Shane hernadez Referred To Contact Diagnoses Occipital neuralgia of right side Procedures External Facility Surgical/Procedural Request Vazquez Christie PA-C [address] [place] [address] Phone: tel: fax: [facility] 3000 [facility] 110 [place] [address] Phone: tel: fax: Referral ID Status Reason Start Date Expiration Date Visits Requested Visits Authorized [id number] Authorized Continuity of Care 03/03/2025 06/02/2026 1 1 Reason for Visit * Reason Comments Follow-up Neck Pain Encounter Details Date Type Department Care Team (Late st Contact Info) Description 03/03/2025 1:45 PM EDT Office Visit [facility] PAIN MANAGEMENT 3000 [facility] 330 [place] [address] Vazquez Christie PA-C [address] [place] [address] Occipital neuralgia of right side (Primary Dx); [...] 30 days sober on 08-05-2024 [facility] Utilities Answer Date Recorded In the past 12 months has [employer], gas, oil, or water [employer] threatened to shut off services in your [...] Score 0 10/02/2022 [facility] of Occupat ional [facility] - Occupational Stress Questionnaire Answer Date [...] EDT Referring Physician: Enedina Mcguire APRN [address] [place] [address] Primary Physician: Enedina Mcguire APRN CHIEF COMPLAINT [...] Surgeon: Presley Montes De Oca MD; Location: [facility]; Service: Gastroenterology; Laterality: N/A; ENDOSCOPY N/A 07/29/2022 Procedure: ESOPHAGOGASTRODUODENOSCOPY; Surgeon: Presley Montes De Oca MD; Location: [facility]; Service: Gastroenterology; Laterality: N/A; WITH APC [...] Rfl: 0 vitamin D (ERGOCALCIFEROL) 1.25 MG (39763 UT) capsule capsule, Take 1 capsule by [...] indicated 9. Records: Kristofer reviewed; [facility] notes reviewed 10. Lifestyle goals: Follow-up [address] [facility] Pain Management Vazquez Christie PA-C documented in this encounter Plan of Treatment Upcoming Encounters Date Type Department Care Team (Late st Contact Info) Description 05/18/2025 2:30 PM EST Office Visit [facility] INTERNAL MEDICINE [address] [place] [address] Enedina Mcguire, RESTAURANT LINE COOK [address] [place] [address] [phone] 05/21/2025 12:30 PM EST Office Visit [facility] PAIN MANAGEMENT [address] [address] Vazquez Christie PA-C 1760 [facility] 302 [place] [phone] Scheduled Orders Name Type Priority Associated Diagnoses [...] documented as of this encounter Care Teams Wood Model Builder Relationship Specialty Start Date End Date Enedina Mcguire APRN [address] [place] [address] PCP - General Nurse Practitioner 10/27/24 documented as of this encounter
--- OUTSIDE RECORDS SUMMARY | 2025-03-10 09:30 | XMS_ITS | Encounter Summary ---
Author Organization [facility] Address [address] [place] [address] Care Team Providers Care Builder'S Labourer Name Role Phone Enedina Mcguire APRN Primary Care Provider + Reason for Visit * Reason Onset Date Comments SONG- INJECTION SCHEDULE 02/11/2025 Encounter Details Date Type Department Care Team (Late st Contact Info) Description 02/11/2025 Telephone [facility] PAIN MANAGEMENT [address] [address] Tye Song MD [address] [address] SONG- INJECTION SCHEDULE Social History Tobacco Use Types Packs/Day Years Used Date Smoking Tobacco: Former Cigarettes 4 20 Passive Smoke Exposure: Past Smokeless Tobacco: Current Comments:MARIJUANA USE ABOUT 2X PER WEEK - reports no use 08-05-2024 Alcohol Use Standard Drinks/Week Comments Not Currently 0 (1 standard drink = 0.6 oz pure alcohol) 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 [facility] Utilities Answer Date Recorded In the past 12 months has [employer], gas, oil, or water [employer] threatened to shut off services in your [...] Severity Measure Score 0 10/02/2022 [facility] - [facility]ational Stress Questionnaire Answer Date [...] GED or equivalent No 07/09/2024 Preferred Language Guamanian 07/09/2024 PHQ-2 Answer Date Recorded Patient Health [...] JULIEN Relationship to Patient: SELF Phone Number: [phone] Reason For Call: PATIENT CALLING TO GET BACK ON THE SCHEDULE FOR HIS INJECTIONS documented in this encounter Plan of Treatment Upcoming Encounters Date Type Department Care Team (Late st Contact Info) Description 05/18/2025 2:30 PM EST Office Visit [facility] INTERNAL MEDICINE [address] [place] [phone] Enedina Mcguire, CORPORATE SALES TRAINER [address] [place] [address] 05/21/2025 12:30 PM EST Office Visit [facility] PAIN MANAGEMENT [address] [facility] [address] [place] [address] Vazquez Christie PA-C [address] [facility] [address] [place] [address] documented as of this encounter Visit Diagnoses Not on filedocumented in this encounter Additional Health Concerns Assessment Noted Time PHQ-2 Depression Total Score: 1 12/31/19 24 3:25 PM EDT documented as of this encounter Care Teams Builder'S Labourer Relationship Specialty Start Date End Date Enedina Mcguire APRN [address] [place] [address] PCP - General Nurse Practitioner 10/27/24 documented as of this encounter
--- OUTSIDE RECORDS SUMMARY | 2025-03-10 09:30 | XMS_ITS | Encounter Summary ---
[facility] Organization [facility] Address [address] [place] [address] Care Team Providers Care Bicycle Service Technician Name Role Phone Enedina Mcguire APRN Primary Care Provider + Encounter Details Date Type Department Care Team (Late st Contact Info) Description 02/20/2025 Telephone [facility] PAIN MANAGEMENT [address] [address] Georgina Rainey MA Social History Tobacco Use Types Packs/Day Years Used Date Smoking Tobacco: Former Cigarettes 4 20 Passive Smoke Exposure: Past Smokeless Tobacco: Current Comments:MARIJUANA USE ABOUT 2X PER WEEK - reports no use 08-05-2024 Alcohol Use Standard Drinks/Week Comments Not Currently 0 (1 standard drink = 0.6 oz pure alcohol) 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 [facility] Utilities Answer Date Recorded In the past 12 months has [employer], [employer], oil, or water [employer] threatened to shut off services in [...] Brief Depression Severity Measure Score 0 10/02/2022 [facility] - Occupational Stress Questionnaire Answer Date [...] GED or equivalent No 07/09/2024 Preferred Language Yakut 07/09/2024 PHQ-2 Answer Date Recorded Patient Health [...] Description 05/18/2025 2:30 PM EST Office Visit [facility] INTERNAL MEDICINE [address] [place] [address] Enedina Mcguire APRN [address] [place] [address] 05/21/2025 12:30 PM EST Office Visit [facility] PAIN MANAGEMENT [address] [address] Vazquez Christie PA-C [address] [facility] [address] [place] [address] documented as of this encounter Visit Diagnoses Not on filedocumented in this encounter Additional Health Concerns Assessment Noted Time PHQ-2 Depression Total Score: 1 12/31/19 24 3:25 PM EDT documented as of this encounter Care Teams Bicycle Service Technician Relationship Specialty Start Date End Date Enedina Mcguire APRN [address] [place] [address] PCP - General Nurse Practitioner 10/27/24 documented as of this encounter
--- OUTSIDE RECORDS SUMMARY | 2025-03-10 09:30 | XMS_ITS | Encounter Summary ---
Author Organization [facility] Address [address] [place] [address] Care Team Providers Care Signal Operator Linguist Name Role Phone Enedina Mcguire APRN Primary Care Provider + Encounter Details Date Type Department Care Team (Late st Contact Info) Description 02/19/2025 Documentation [facility] PAIN MANAGEMENT [address] [address] Tye Song MD [address] [place] [id number] Social History Tobacco Use Types Packs/Day Years Used Date Smoking Tobacco: Former Cigarettes 4 20 Passive Smoke Exposure: Past Smokeless Tobacco: Current Comments:MARIJUANA USE ABOUT 2X PER WEEK - reports no use 08-05-2024 Alcohol Use Standard Drinks/Week Comments Not Currently 0 (1 standard drink = 0.6 oz pure alcohol) 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 [facility] Utilities Answer Date Recorded In the past 12 months has [employer], [employer], oil, or water [employer] threatened to shut off services in your [...] Brief Depression Severity Measure Score 0 10/02/2022 [facility] - Occupational Stress [...] GED or equivalent No 07/09/2024 Preferred Language [place] Islander 07/09/2024 PHQ-2 Answer Date Recorded Patient Health Questionnaire-9 Score 6 01/01/2025 Sex and Gender Information Value Date Recorded Sex Assigned at Male 08/20/2024 8:28 PM EDT Legal Sex Male 7:45 AM EDT Gender Identity Not on file Sexual Orientation Not on file documented as of this encounter Progress Notes * Tye Song MD - 02/19/2025 9:31 AM EDT [facility] [address] [place] [address] DATE OF SERVICE: 02/19/2025 PROCEDURE: Fluoroscopically-guided bilateral [...] Center Pain Management Tye Song MD Codes: [id number] documented in this encounter Plan of Treatment Upcoming Encounters Date Type Department Care Team (Late st Contact Info) Description 05/18/2025 2:30 PM EST Office Visit [facility] INTERNAL MEDICINE [address] [place] [address] Enedina Mcguire, RAMBO [address] [place] [address] 05/21/2025 12:30 PM EST Office Visit [facility] PAIN MANAGEMENT [address] [address] Vazquez Christie PA-C [address] [facility] [address] [place] [address] documented as of this encounter Visit Diagnoses Not on filedocumented in this encounter Additional Health Concerns Assessment Noted Time PHQ-2 Depression Total Score: 1 12/31/19 24 3:25 PM EDT documented as of this encounter Care Teams Signal Operator Linguist Relationship Specialty Start Date End Date Enedina Mcguire APRN [address] [place] [address] PCP - General Nurse Practitioner 10/27/24 documented as of this encounter
--- OUTSIDE RECORDS SUMMARY | 2025-03-10 09:30 | XMS_ITS | Encounter Summary ---
[facility] Address [address] [place] [address] Care Team Providers Care Structural Steel Detailer Name Role Phone Enedina Mcguire APRN Primary Care Provider + Reason for Visit * Reason Onset Date Comments Results 02/20/2025 Encounter Details Date Type Department Care Team ([facility] st Contact Info) Description 02/20/2025 Telephone [facility] INTERNAL MEDICINE [address] [place] [address] Enedina Mcguire APRN [address] [place] [address] Results Social History Tobacco Use Types Packs/Day Years Used Date Smoking Tobacco: Former Cigarettes 4 20 Passive Smoke Exposure: Past Smokeless Tobacco: Current Comments:MARIJUANA USE ABOUT 2X PER WEEK - reports no use 08-05-2024 Alcohol Use Standard Drinks/Week Comments Not Currently 0 (1 standard drink = 0.6 oz pure alcohol) 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 [facility] Utilities Answer Date Recorded In the past 12 months has [employer], [employer], oil, or water [employer] threatened to shut off services in your [...] Brief Depression Severity Measure Score 0 10/02/2022 [facility] - Occupational Stress Questionnaire Answer [...] GED or equivalent No 07/09/2024 Preferred Language Sudanese 07/09/2024 PHQ-2 Answer Date Recorded Patient Health Questionnaire-9 Score 6 01/01/2025 Sex and Gender Information Value Date Recorded Sex Assigned at Male 08/20/2024 8:28 PM EDT Legal Sex Male 7:45 AM EDT Gender Identity Not on file Sexual Orientation Not on file documented as of this encounter Miscellaneous Notes * Telephone Encounter - Valarie Rangel CMA - 02/20/2025 2:42 PM EDT Pt sent [employer] message as well, message sent to Enedina on results * Telephone Encounter - Liliana Glez RegSched Rep - 02/20/2025 1:34 PM EDT Caller: Julien Anderson Relationship: Self Best call back number: [phone] What test was performed: TESTOSTERONE TEST When [...] [facility] INTER[facility] [address] [place] [address] Enedina Mcguire, IT OPERATIONS SPECIALIST [address] [place] [address] 05/21/2025 12:30 PM EST Office Visit [facility] PAIN MANAGEMENT [address] [facility] [address] [place] [address] Vazquez Christie PA-C [address] [facility] [address] [place] [address] documented as of this encounter Visit Diagnoses Not on filedocumented in this encounter Additional Health Concerns Assessment Noted Time PHQ-2 Depression Total Score: 1 12/31/19 24 3:25 PM EDT documented as of this encounter Care Teams Structural Steel Detailer Relationship Specialty Start Date End Date Enedina Mcguire APRN [address] [place] [address] PCP - General Nurse Practitioner 10/27/24 documented as of this encounter
--- OUTSIDE RECORDS SUMMARY | 2025-03-10 09:31 | XMS_ITS ---
Author Organization Unknown ENCOUNTERS Encounter Performer Location Date Diagnosis Diagnosis Status Inpatient [facility] [address] [facility] [address] [place] [id number] XS Outpatient [place] [id number] [facility] [address] [place] [address] [id number] XSTH Pre Admit [facility] [address] [facility] [address] [facility] [place] [address] [id number] Emergency [address] [place] [address] [id number] XSTH Pre Admit [facility] [address] [facility] [address] [place] [address] [id number] Emergency [facility] [address] [facility] [address] [place] [address] [id number] [place] [facility] [address] [facility] [address] [place] [address] [id number] [place] [facility] [address] [facility] [address] [facility] [address] [id number] [place] Emergency [facility] [address] [facility] [address] [place] [address] [id number] [place] *Note: Encounters from your own facility or health system may be excluded. Allergies, Adverse Reactions, Alerts Allergen Type Severity Identification Date Medications Name Date Quantity Days Supplied GPI Number
--- OUTSIDE RECORDS SUMMARY | 2025-03-10 09:31 | XMS_ITS | Encounter Summary ---
Author Organization [facility] Address [address] [place] [address] Care Team Providers Care Nail Galvanizer Name Role Phone Enedina Mcguire NP Primary Care Provider + [phone] Maureen Pantoja RN Unavailable Unavail able Chris Orosco MD Unavailable [phone] Source Comments This information has been disclosed [...] release of HIV test results or diagnoses. [id number] Encounter Details Date Type Department Care Team (Late st Contact Info) Description 02/26/2025 Chart Note [facility] Liver Transplant at [place] [id number] [address] Marlene Ro MA 02/24 Labs entered from [facility] Social History Tobacco [...] Recorded In the past 12 months has [employer], gas, oil, or water company threatened to [...] living in a fdc (including now)? No 01/28/2025 Yearly Questionnaire Answer [...] were not included. 02/24 Labs entered from [facility] documented in this [...] * (ABNORMAL) Magnesium (02/24/2025 1:03 PM EDT) [facility] Magnesium 1.2(A) 1.6 - 2.4 mg/dL Plasma Narrative Resulting Agency Comment [facility] Result [facility] LAB BLOOD ORDERABLES Denisse l Result * (ABNORMAL) Renal Function Panel w/o EGFR (02/24/2025 1:03 PM EDT) [facility] Glucose 121 BUN 18 CO2 26(A) 13 - 22 mmol/L Creatinine 1.00 Potassium 4.1 Sodium 140 Chloride 99 Phosphorus 4.6 2.5 - 4.9 mg/dL Calcium 9.4 EGFR 82 mg/dL Albumin 4.7 3.5 - 5.0 g/dL Blood Narrative Resulting Agency Comment [facility]ev [facility] Result [facility] LAB BLOOD ORDERABLES Denisse l Result * Creatinine, urine, random (02/24/2025 1:03 PM EDT) [facility] Creatinine, Urine 96 Urine Narrative Resulting Agency Comment [facility]ev [facility] Result [facility] URINE ORDERABLES Final Re sult * (ABNORMAL) Urinalysis w/Rfl to Microscopic (02/24/2025 1:03 PM EDT) [facility] Glucose, UA Negative Negative Ketones, UA Negative Negative Blood, UA Negative Negative Bilirubin, UA Negative Negative Urobilinogen, UA Normal Normal Protein, UA 1+(A) Negative pH, UA 6.0 4.5 - 8.0 Specific Mcalester, UA 1.020 1.005 - 1.030 Clarity, UA Clear Clear Color, UA Yellow Light Yellow, Yellow Urine Narrative Resulting Agency Comment [facility]ev [facility] Result [facility] Provider URINE ORDERABLES Final Re sult [...] 10^3/mL Blood Narrative Resulting Agency Comment [facility]ev [facility] Result [facility] Provider LAB BLOOD ORDERABLES Denisse l Result * Urine Protein, Tot, Random (w/o Creat) (02/24/2025 1:03 PM EDT) Total Protein, Ur 63.0 Urine Narrative Resulting Agency Comment Kev [facility] Result [facility] Provider URINE ORDERABLES Final Re sult * Hepatic Function Panel (02/24/2025 1:03 PM EDT) Bilirubin, Direct 0.5 Bilirubin, Indirect 0.4 Alkaline Phosphatase 184 ALT 52 AST 71 Total Bilirubin 0.9 Total Protein 6.8 Plasma Narrative Resulting Agency Comment [facility]ev [facility] Result [facility] Provider LAB BLOOD ORDERABLES Denisse l Result * Urine culture (02/24/2025 1:03 PM EDT) Urine Culture, Comprehensive no growth URINE SPECIMEN / Unknown Narrative Resulting Agency Comment [facility] us Historical Provider MICROBIOLOGY - GENERAL OR DERABLES Final Result documented in this encounter Visit Diagnoses Not on filedocumented in this encounter Additional Health Concerns Infection Onset Date Last Indicated Resolved Time C. difficile 01/28/2025 01/28/2025 Assessment Noted Time PHQ-9 Depression Total Score: 2 12/11/19 25 9:00 AM EDT documented as of this encounter Care Teams Nail Galvanizer Relationship Specialty Start Date End Date Enedina Mcguire NP [address] [place] [address] PCP - General Internal Medicine 10/05/24 Maureen Pantoja, ЮЛИЯ Txp Post Coordinator Transplant Hepatology 10/28/24 Chris Orosco MD [address] [place] [address] [address] [place] [address] Consulting Physician Transplant Hepatology 02/26/25 documented as of this encounter
--- OUTSIDE RECORDS SUMMARY | 2025-03-10 09:31 | XMS_ITS | Encounter Summary ---
Author Organization [facility] Address [address] [place] [address] Care Team Providers Care Ductfixing Plumber Name Role Phone Enedina Mcguire NP Primary Care Provider + [phone] Maureen Pantoja RN Unavailable Unavail able Chris Orosco MD Unavailable [phone] Source Comments This information has been disclosed [...] release of HIV test results or diagnoses. [id number] Reason for Visit * Reason Comments Medication Refill Encounter Details Date Type Department Care Team (Late st Contact Info) Description 02/25/2025 Refill [facility] Liver Transplant at [address] [address] Lydia Sanchez MD [address] [place] [address] Liver[place] [address] Encounter for therapeutic drug monitoring; [...] the past 12 months has th e [employer], [employer], oil, or water [employer] threatened to shut off services in your [...] documented as of this encounter Care Teams Ductfixing Plumber Relationship Specialty Start Date End Date Enedina Mcguire NP [address] [place] [address] PCP - General Internal Medicine 10/05/24 Maureen Pantoja, RN Txp Post Coordinator Transplant Hepatology 10/28/24 Chris Orosco MD [address] [place] [address] [address] [place] [address] Consulting Physician Transplant Hepatology 02/26/25 documented as of this encounter
--- OUTSIDE RECORDS SUMMARY | 2025-03-10 09:31 | XMS_ITS | Encounter Summary ---
Author Organization [facility] Address [address] [place] [address] Care Team Providers Care Insurance Verification Specialist Name Role Phone Enedina Mcguire APRN [...] Recorded In the past 12 months has [employer], gas, oil, or water [employer] threatened to shut off services in your [...] Brief Depression Severity Measure Score 0 10/02/2022 [facility] [place] of Occupat ional Health - Occupational Stress [...] 05/18/2025 2:30 PM EST Office Visit [facility] INTERNAL MEDICINE [address] [place] [address] Enedina Mcguire APRN [address] [place] [address] [phone] 05/21/2025 12:30 PM EST Office Visit [facility] PAIN MANAGEMENT [address] [facility] [address] [place] [address] Vazquez Christie PA-C [address] [place] [address] [address] [place] [address] documented as of this encounter Visit Diagnoses Not on filedocumented in this encounter Additional Health Concerns Assessment Noted Time PHQ-2 Depression Total Score: 1 12/31/19 24 3:25 PM EDT documented as of this encounter Care Teams Insurance Verification Specialist Relationship Specialty Start Date End Date Enedina Mcguire APRN [address] [place] [address] [phone] PCP - General Nurse Practitioner 10/27/24 documented as of this encounter
--- OUTSIDE RECORDS SUMMARY | 2025-03-10 09:31 | XMS_ITS | Encounter Summary ---
Author Organization [facility] Address [address] [place] [address] Care Team Providers Care Senior Infrastructure Engineer Name Role Phone Enedina Mcguire APRN Primary Care Provider + Encounter Details Date Type Department Care Team ([facility] st Contact Info) Description 02/23/2025 Prior Authorization [facility] INTERNAL MEDICINE [address] [place] [address] Enedina Mcguire APRN [address] [place] [address] Social History Tobacco Use Types Packs/Day Years Used Date Smoking Tobacco: Former Cigarettes 4 20 Passive Smoke Exposure: Past Smokeless Tobacco: Current Comments:MARIJUANA USE ABOUT 2X PER WEEK - reports no use 08-05-2024 Alcohol Use Standard Drinks/Week Comments Not Currently 0 (1 standard drink = 0.6 oz pure alcohol) 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 [facility] Utilities Answer Date Recorded In the past 12 months has [employer], [employer], oil, or water [employer] threatened to shut off services in your [...] MA - 02/24/2025 11:14 AM EDT Sent Tapvalue message to patient. * Telephone Encounter - [...] Description 05/18/2025 2:30 PM EST Office Visit [facility] INTERNAL MEDICINE [address] [place] [address] Enedina Mcguire, SALES FORCE ADMINISTRATOR [address] [place] [address] [phone] 05/21/2025 12:30 PM EST Office Visit [facility] PAIN MANAGEMENT [address] [facility] [address] [place] [address] Vazquez Christie PA-C [address] [facility] [address] [place] [address] documented as of this encounter Visit Diagnoses Not on filedocumented in this encounter Additional Health Concerns Assessment Noted Time PHQ-2 Depression Total Score: 1 12/31/19 24 3:25 PM EDT documented as of this encounter Care Teams Senior Infrastructure Engineer Relationship Specialty Start Date End Date Enedina Mcguire APRN [address] [place] [address] PCP - General Nurse Practitioner 10/27/24 documented as of this encounter
--- OUTSIDE RECORDS SUMMARY | 2025-03-10 09:31 | XMS_ITS | Encounter Summary ---
[facility] Address [address] [place] [address] Care Team Providers Care Intervention Nurse Name Role Phone Enedina Mcguire APRN Primary Care Provider + Encounter Details Date Type Department Care Team ([facility] st Contact Info) Description 02/23/2025 Results Follow-Up [facility] INTERNAL MEDICINE [address] [place] [address] Enedina Mcguire APRN [address] [place], [place] [phone] Social History Tobacco Use Types Packs/Day Years Used Date Smoking Tobacco: Former Cigarettes 4 20 Passive Smoke Exposure: Past Smokeless Tobacco: Current Comments:MARIJUANA USE ABOUT 2X PER WEEK - reports no use 08-05-2024 Alcohol Use Standard Drinks/Week Comments Not Currently 0 (1 standard drink = 0.6 oz pure alcohol) 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 [facility] Utilities Answer Date Recorded In the past 12 months has [employer], [employer], oil, or water [employer] threatened to shut off services in your [...] Brief Depression Severity Measure Score 0 10/02/2022 [facility] of Occupat ional Health - Occupational Stress [...] Visit [facility] INTERNAL MEDICINE [address] [place] [address] Enedina Mcguire APRN [address] [place] [address] 05/21/2025 12:30 PM EST Office Visit [facility] PAIN MANAGEMENT [address] [facility] [address] [place] [address] Vazquez Christie PA-C [address] [place] [address] [place] [address] documented as of this encounter Visit Diagnoses Not on filedocumented in this encounter Additional Health Concerns Assessment Noted Time PHQ-2 Depression Total Score: 1 12/31/19 24 3:25 PM EDT documented as of this encounter Care Teams Intervention Nurse Relationship Specialty Start Date End Date Enedina Mcguire APRN [address] [place] [address] [phone] PCP - General Nurse Practitioner 10/27/24 documented as of this encounter
--- OUTSIDE RECORDS SUMMARY | 2025-03-10 09:31 | XMS_ITS | Encounter Summary ---
Author Organization [facility] Address [address] [place] [address] Care Team Providers Care Sports Physiotherapist Name Role Phone Enedina Mcguire APRN Primary Care Provider + Encounter Details Date Type Department Care Team ([facility] st Contact Info) Description 02/17/2025 Telephone [facility] INTERNAL MEDICINE [address] [place] [address] Enedina Mcguire APRN [address] [place] [address] Social History Tobacco Use Types Packs/Day Years Used Date Smoking Tobacco: Former Cigarettes 4 20 Passive Smoke Exposure: Past Smokeless Tobacco: Current Comments:MARIJUANA USE ABOUT 2X PER WEEK - reports no use 08-05-2024 Alcohol Use Standard Drinks/Week Comments Not Currently 0 (1 standard drink = 0.6 oz pure alcohol) 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 [facility] Utilities Answer Date Recorded In the past 12 months has [employer], [employer], oil, or water [employer] threatened to shut off services in your [...] Depression Severity Measure Score 0 10/02/2022 [facility] - Occupational Stress Questionnaire Answer Date [...] Please reach out to Dr. Orosco at [facility] (Phone: tel: ) Patient stated that [...] Description 05/18/2025 2:30 PM EST Office Visit [facility] INTERNAL MEDICINE [address] [place] [phone] Enedina Mcguire APRN [address] [place] [address] 05/21/2025 12:30 PM EST Office Visit [facility] PAIN MANAGEMENT [address] [facility] [address] [place] [phone] Vazquez Christie PA-C [address] [place] [address] [address] [place] [address] documented as of this encounter Visit Diagnoses Not on filedocumented in this encounter Additional Health Concerns Assessment Noted Time PHQ-2 Depression Total Score: 1 12/31/19 24 3:25 PM EDT documented as of this encounter Care Teams Sports Physiotherapist Relationship Specialty Start Date End Date Enedina Mcguire APRN [address] [place] [address] PCP - General Nurse Practitioner 10/27/24 documented as of this encounter
[2025-03-10 09:33] LABS: Microscopic, Urine URINE MICROSCOPIC (MICROSCOPIC)
--- OUTSIDE RECORDS SUMMARY | 2025-03-10 09:33 | XMS_ITS | Encounter Summary ---
Author Organization [facility] Address [address] [place] [address] Care Team Providers Care Slaughterer Religious Ritual Name Role Phone Enedina Mcguire NP Primary Care Provider + [phone] Alicia Rankin RN Unavailable Unavail able Chris Orosco MD Unavailable [phone] Source Comments This information has been disclosed [...] release of HIV test results or diagnoses. [id number] Health Reason for Visit * Reason Comments Results Medication Dose Change Encounter Details Date Type Department Care Team (Late st Contact Info) Description 02/26/2025 Telephone [facility] Liver Transplant at [address] [address] Alicia Rankin, ЮЛИЯ Results; Medication [...] Recorded In the past 12 months has [employer], gas, oil, or water company threatened to [...] documented as of this encounter Care Teams Slaughterer Religious Ritual Relationship Specialty Start Date End Date Enedina Mcguire NP [address] [place] [address] PCP - General Internal Medicine 10/05/24 Alicia Rankin, ЮЛИЯ Txp Post Coordinator Transplant Hepatology 10/28/24 Chris Orosco MD [address] [place] [address] [address] [place] [address] Consulting Physician Transplant Hepatology 02/26/25 documented as of this encounter
--- OUTSIDE RECORDS SUMMARY | 2025-03-10 09:33 | XMS_ITS | Encounter Summary ---
Author Organization [facility] Address [address] [place] [address] Care Team Providers Care Blade Filer Name Role Phone Enedina Mcguire NP Primary Care Provider + [phone] Maureen Pantoja RN Unavailable Unavail able Chris Orosco MD Unavailable [phone] Source Comments This information has been disclosed [...] release of HIV test results or diagnoses. [id number] Encounter Details Date Type Department Care Team (Late st Contact Info) Description 03/02/2025 Telephone [facility] Liver Transplant at [address] [address] Marlene Ro MA Social History [...] Recorded In the past 12 months has [employer], gas, oil, or water [employer] threatened to shut off services in your [...] as of this encounter Care Teams Blade Filer Relationship Specialty Start Date End Date Enedina Mcguire NP [address] [place] [address] PCP - General Internal Medicine 10/05/24 Maureen Pantoja, ЮЛИЯ Txp Post Coordinator Transplant Hepatology 10/28/24 Chris Orosco MD [address] [place] [address] [address] [place] [address] Consulting Physician Transplant Hepatology 02/26/25 documented as of this encounter
--- OUTSIDE RECORDS SUMMARY | 2025-03-10 09:33 | XMS_ITS | Encounter Summary ---
Author Organization [facility] Address [address] [place] [address] Care Team Providers Care Rn Neurology Name Role Phone Enedina Mcguire NP Primary Care Provider + [phone] Maureen Pantoja RN Unavailable Unavail able Source [...] release of HIV test results or diagnoses. [id number] Health Encounter Details Date Type Department Care Team (Late st Contact Info) Description 01/05/2025 Chart Note [facility] Liver Transplant at [address] [place] [address] Marlene Ro MA 01/05 Labs entered from [facility] Social History Tobacco Use Types Packs/Day Years Used Date Smoking Tobacco: Former Cigarettes Smokeless Tobacco: Current Alcohol Use Standard Drinks/Week Comments Yes 0 (1 standard drink = 0.6 oz pure alcohol) History of alcohol abuse, reports no use in 3 week- typically endorses use as 4 glasses of wine a days Utilities Answer Date Recorded In the past 12 months has [employer], gas, oil, or water [employer] threatened to shut off services in your [...] were not included. 01/05 Labs entered from [facility] documented in this encounter Plan of [...] PCR, Blood (01/05/2025 9:27 AM EDT) Pathologist [facility] BK Virus Quant PCR PL Negative Plasma Result [facility] LAB BLOOD ORDERABLES Denisse l Result * Urine culture (01/05/2025 9:27 AM EDT) Pathologist [facility] Urine Culture, Comprehensive no growth URINE SPECIMEN / Unknown Result [facility] MICROBIOLOGY - GENERAL OR DERABLES Final Result * (ABNORMAL) Magnesium (01/05/2025 9:27 AM EDT) [facility] Magnesium 1.0(A) 1.6 - 2.4 mg/dL Plasma Narrative Resulting Agency Comment Kev [facility]ney Result [facility] LAB BLOOD ORDERABLES Denisse l Result * (ABNORMAL) Renal Function Panel w/o EGFR (01/05/2025 9:27 AM EDT) [facility] Glucose 98 BUN 19 CO2 29(A) 13 - 22 mmol/L Creatinine 1.10 Potassium 4.0 Sodium 140 Chloride 101 Phosphorus 5.4(A) 2.5 - 4.9 mg/dL Calcium 9.7 EGFR 89 mg/dL Albumin 4.8 3.5 - 5.0 g/dL Blood Narrative Resulting Agency Comment Kev [facility]ney Result [facility] LAB BLOOD ORDERABLES Denisse l Result * Creatinine, urine, random (01/05/2025 9:27 AM EDT) Pathologist [facility] Creatinine, Urine 80 Urine Narrative Resulting Agency Comment Kev [facility] Result [facility] URINE ORDERABLES Final Re sult * Urinalysis w/Rfl to Microscopic (01/05/2025 9:27 AM EDT) Pathologist [facility] Glucose, UA Negative Negative Ketones, UA Negative Negative Blood, UA Negative Negative Bilirubin, UA Negative Negative Urobilinogen, UA Normal Normal Protein, UA Negative Negative Nitrite, UA Negative Negative pH, UA 6.0 4.5 - 8.0 Specific Saunemin, UA 1.015 1.005 - 1.030 Clarity, UA Clear Clear Color, UA Yellow Light Yellow, Yellow Urine Narrative Resulting Agency Comment [facility] Result [facility] Provider URINE ORDERABLES Final Re sult * (ABNORMAL) CBC and differential (01/05/2025 9:27 AM EDT) [facility] Hemoglobin 11.9(A) 13.5 - 17.5 g/dL Hematocrit [...] Narrative Resulting Agency Comment Kev [facility] Result [facility] Provider LAB BLOOD ORDERABLES Denisse l Result * Urine Protein, Tot, Random (w/o Creat) (01/05/2025 9:27 AM EDT) [facility] Total Protein, Ur 21.0 Urine Narrative Resulting Agency Comment [facility] Result [facility] Provider URINE ORDERABLES Final Re sult [...] as of this encounter Care Teams Rn Neurology Relationship Specialty Start Date End Date Enedina Mcguire NP [address] [place] [address] PCP - General Internal Medicine 10/05/24 Maureen Pantoja, RN Txp Post Coordinator Transplant Hepatology 10/28/24 documented as of this encounter
--- OUTSIDE RECORDS SUMMARY | 2025-03-10 09:34 | XMS_ITS | Encounter Summary ---
[facility] Address [address] [place] [address] Care Team Providers Care Meat Cutter Name Role Phone Enedina Mcguire APRN Primary Care Provider + Encounter Details Date Type Department Care Team ([facility] st Contact Info) Description 10/07/2024 Results Follow-Up [facility] INTERNAL MEDICINE [address] [place] [address] Enedina Mcguire APRN [address] [place], [place] [id number] Social History Tobacco Use Types Packs/Day Years [...] Recorded In the past 12 months has [employer], [employer], oil, or water [employer] threatened to shut off services in your [...] Brief Depression Severity Measure Score 0 10/02/2022 [facility] of Occupat ional Health - Occupational [...] GED or equivalent No 07/09/2024 Preferred Language Bengali 07/09/2024 PHQ-2 Answer Date Recorded Patient Health [...] [facility] INTERNAL MEDICINE [address] [place] [address] Enedina Mcguire APRN [address] [place] [address] 05/21/2025 12:30 PM EST Office Visit [facility] PAIN MANAGEMENT [address] [facility] [address] [place] [address] Vazquez Christie PA-C [address] [place] [address] [place] [address] documented as of this encounter Visit Diagnoses Not on filedocumented in this encounter Additional Health Concerns Assessment Noted Time PHQ-2 Depression Total Score: 1 12/31/19 24 3:25 PM EDT documented as of this encounter Care Teams Meat Cutter Relationship Specialty Start Date End Date Enedina Mcguire APRN [address] [place] [address] [id number] PCP - General Nurse Practitioner 10/27/24 documented as of this encounter
--- OUTSIDE RECORDS SUMMARY | 2025-03-10 09:34 | XMS_ITS | Clinical Summary ---
Author Organization Healthcare Address [address] [place] [address] Care Team Providers Care Mis Director Name Role Phone Lj Tapia Rohini RICKS Unavailable [phone] Enedina Mcguire APRN Primary Care Provider + [...] answer 07/14/2024 How often do you attend formerly [facility] or buddhist services? Patient unable to answer 07/14/2024 Do you belong to any clubs o r organizations such as hoahaoism groups, unions, fraternal or athletic groups, or [...] Recorded Patient Health Questionnaire-2 Score 2 09/29/2024 [facility]at ional [facility] - [...] drink first t deborah in the morning (EYE-TRAP PULLER) to steady your nerves or to get rid of a hangover? 0 07/19/2024 CAGE Questionnaire Score 2 025 Utilities Answer Date Recorded In the past 12 months has th [employer], gas, oil, or water company threatened to [...] 2 - 13+ 2-dose series) 10/11/2010 09/13/2010 [id number] Vaccine (4 - 2024- season) 2025 03/17/2021, [...] this topic Medical Devices Implanted Type Area Bleach Packer Device Identifier Shelf Expiration Date Model / Serial / Lot Concerto Westside Coil-07/03/2022 Implanted:06/15 by Timmy Brunner MD (Quantity not on file) Coil Abdomen Description:Multiple Coil Co ncerto Pgla Westside Detach COILS implanted on 07/03/2022 by Timmy Brunner MD at [facility]--info can be found in Care Everywhere for [facility] as of 11/15/23 Dona Coil-07/03/2022 Implanted:06/15 by Timmy Brunner MD (Quantity not on file) Coil Abdomen [employer] Description:Coil Emb Dona 3.7/Implanted: Qty: 1 on 07/03/2022 by Timmy Brunner MD at [facility] Plate Plate N/A: Neck Plug Vasc Anton Emb Amplatzer Implanted:06/15 by Timmy Brunner MD (Quantity not on file) Plug Other Vein / / [id number] Description:Plug Vasc Anton Em b Ampltz .027 [id number] - [id number] Implanted: Qty: 1 on 07/03/2022 by Timmy Brunner MD at [facility] Stent Gastro Panc 5fr 5cm - [id number] Implanted:Qty: 1 on 11/20/2023 by Devang Mcghee, RN at [facility] Pancreas [id number] 08/13/2026 [id number] / / [id number] Procedures Procedure Name Priority Date/Time Associated Diagnosis [...] Reactive Non Reactive 07/14/2024 5:31 PM EST [employer] [facility] Comment:Screening for HIV 1 & 2 antibodies, and P24 antigen is NONREACTIVE. No confirmatory testing is required. Blood Venous blood specimen / Unknown Venipuncture / Unknown 07/14/2024 4:31 PM EST 07/14/2024 4:56 PM EST Laureano Salinas APRN, [facility] BLOOD ORDERA BLES Final Result Performing Organization Address City/[facility] Co de Phone Number HEALTHCARE LAB [address] [place] [address] * Hepatitis C Antibody (07/14/2024 4:31 PM EST) [facility] Signature Hepatitis C Antibody Negative Negative 07/14/2024 5:27 PM EST [facility] Blood Venous blood specimen / Unknown Venipuncture / Unknown 07/14/2024 4:31 PM EST 07/14/2024 4:54 PM EST Laureano Salinas APRN, [facility] BLOOD ORDERA BLES Final Result Performing Organization Address City/[facility] de Phone Number [facility] [address] [place] [address] from Last 3 Months or Most Recently Relevant to Health Maintenance Insurance [facility] Advance Directives * Full Code (Latest Code Status on File) Date Activated Date Inactivated Comments 07/11/2024 11:04 PM 07/23/2024 6:27 PM Question Answer Comments Patient has decision-making capacity? Yes * Full Code Date Activated Date Inactivated Comments 11/14/2023 10:15 PM 11/27/2023 9:08 PM Question Answer Comments Patient has decision-making capacity? Yes Care Teams Mis Director Relationship Specialty Start Date End Date Enedina Mcguire APRN [address] [place] [address] PCP - General 12/04/22 Lj Tapia APRN [address] [place] [address] Referring Physician Gastroenterology 07/18/22
--- OUTSIDE RECORDS SUMMARY | 2025-03-10 09:34 | XMS_ITS | Encounter Summary ---
[facility] [address] [place] [address] Care Team Providers Care Petal Cutter Name Role Phone Enedina Mcguire APRN Primary Care Provider + Encounter Details Date Type Department Care Team (Late st Contact Info) Description 03/02/2025 Telephone [facility] PAIN [facility]NA[facility]EMENT [address] [address] Georgina Rainey MA Social History Tobacco Use Types Packs/Day Years Used Date Smoking Tobacco: Former Cigarettes 4 20 Passive Smoke Exposure: Past Smokeless Tobacco: Current Comments:MARIJUANA USE ABOUT 2X PER WEEK - reports no use 08-05-2024 Alcohol Use Standard Drinks/Week Comments Not Currently 0 (1 standard drink = 0.6 oz pure alcohol) 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 [facility] Utilities Answer Date Recorded In the past 12 months has [employer], [employer], oil, or water [employer] threatened to shut off services in your [...] Depression Severity Measure Score 0 10/02/2022 [facility] - Occupational Stress Questionnaire Answer Date [...] GED or equivalent No 07/09/2024 Preferred Language Nepali 07/09/2024 PHQ-2 Answer Date Recorded Patient Health [...] Visit [facility] INTERNAL MEDICINE [address] [place] [phone] Enedina Mcguire, OYSTER SHUCKER [address] [place] [address] 05/21/2025 12:30 PM EST Office Visit [facility] PAIN [facility]NA[facility]EMENT [address] [phone] Vazquez Christie PA-C [address] [place] [phone] documented as of this encounter Visit Diagnoses Not on filedocumented in this encounter Additional Health Concerns Assessment Noted Time PHQ-2 Depression Total Score: 1 12/31/19 24 3:25 PM EDT documented as of this encounter Care Teams Petal Cutter Relationship Specialty Start Date End Date Enedina Mcguire APRN [address] [place] [address] PCP - General Nurse Practitioner 10/27/24 documented as of this encounter
--- OUTSIDE RECORDS SUMMARY | 2025-03-10 09:34 | XMS_ITS | Encounter Summary ---
[facility] [address] [place] [address] Care Team Providers Care Senior Quantity Surveyor Name Role Phone Enedina Mcguire APRN Primary Care Provider + Reason for Visit * Reason Comments Med Refill Encounter Details Date Type Department Care Team (Late st Contact Info) Description 09/12/2022 Refill [facility] GASTROENTEROLOGY [address] [facility] [address] [place] [address] Lj Tapia APRN [address] [place] [address] Social History Tobacco Use Types Packs/Day Years [...] or training? Not on file Preferred Language Palestinian 07/03/2022 Sex and Gender Information Value Date Recorded Sex Assigned at Male 08/20/2024 8:28 PM EDT Legal Sex Male 7:45 AM EDT Gender Identity Not on file Sexual Orientation Not on file documented as of this encounter Plan of Treatment Upcoming Encounters Date Type Department Care Team (Late st Contact Info) Description 05/18/2025 2:30 PM EST Office Visit [facility] INTERNAL MEDICINE [address] [place] [phone] Enedina Mcguire APRN [address] [place] [address] 05/21/2025 12:30 PM EST Office Visit [facility] PAIN [facility]NA[facility]EMENT [address] [address] Vazquez Christie PA-C [address] [facility] [address] [place], [place] [phone] documented as of this encounter Visit Diagnoses Not on filedocumented in this encounter Care Teams Senior Quantity Surveyor Relationship Specialty Start Date End Date Enedina Mcguire APRN [address] [place] [address] PCP - General Nurse Practitioner 10/27/24 documented as of this encounter
--- OUTSIDE RECORDS SUMMARY | 2025-03-10 09:34 | XMS_ITS | Encounter Summary ---
Author Organization Healthcare Address [address] [place] [address] Care Team Providers Care Municipal Clerk Name Role Phone Jony Conde MD Primary Care Provider [phone] Lj Tapia SCOURING MACHINE TENDER Unavailable [phone] Enedina Mcguire SCOURING MACHINE TENDER Primary Care Provider + Nuria Fall PROPOSAL COORDINATOR Unavailable Unavaila ble Encounter Details Date Type Department Care Team (Late st Contact Info) Description 07/04/2022 Orders Only External Location [address] [place] [address] Presley Montes De Oca MD [address] [place] [phone] Social History Tobacco Use Types Packs/Day Years [...] on filedocumented in this encounter Care Teams Municipal Clerk Relationship Specialty Start Date End Date Jony Conde MD [address] [place] [address] [address] [place], [place] [phone] PCP - General 07/18/22 12/03/22 Enedina Mcguire APRN [address] [place] [address] PCP - General 12/04/22 Lj Tapia APRN [address] [place] [phone] Referring Physician Gastroenterology 07/18/22 Nuria Fall LPN [facility] TCM Nurse 07/24/24 08/23/24 documented as of this encounter
--- OUTSIDE RECORDS SUMMARY | 2025-03-10 09:34 | XMS_ITS | Encounter Summary ---
Author Organization Healthcare Address [address] [place] [address] Care Team Providers Care Director Retirement Name Role Phone Jony Conde MD Primary Care Provider [phone] Lj Tapia AFFIRMATIVE ACTION OFFICER Unavailable [phone] Enedina Mcguire APRN Primary Care Provider + Nuria Fall GYRO MECHANIC Unavailable Unavaila ble Encounter Details Date Type Department Care Team (Late st Contact Info) Description 07/02/2022 Orders Only External Location [address] [place] [address] Provider, External Social History Tobacco Use Types [...] filedocumented in this encounter Care Teams Director Retirement Relationship Specialty Start Date End Date Jony Conde MD [address] [facility] [address] [place], [place] [phone] PCP - General 07/18/22 12/03/22 Enedina Mcguire APRN [address] [place] [address] PCP - General 12/04/22 Lj Tapia APRN [address] [place] [address] Referring Physician Gastroenterology 07/18/22 Nuria Fall LPN [facility] TCM Nurse 07/24/24 08/23/24 documented as of this encounter
--- OUTSIDE RECORDS SUMMARY | 2025-03-10 09:34 | XMS_ITS | Clinical Summary ---
Author Organization [facility] Address [address] [place] [address] Care Team Providers Care Solar System Designer Name Role Phone Enedina Mcguire APRN Primary [...] Transplant Rejection, Prevention of Liver Transplant Rejection. 025 Active HYDROmorphone (DILAUDID) 2 MG tablet Take 1 tablet by mouth Every 6 (Six) Hours. 025 Active predniSONE (DELTASONE) 5 MG tablet [...] Daily. Active vitamin D (ERGOCALCIFEROL) 1.25 MG (94532 UT) capsule capsuleIndication s:Vitamin D deficiency Take [...] Needed. 2024 vitamin D (ERGOCALCIFEROL) 1.25 MG (48318 UT) capsule capsule Take 1 capsule by [...] Description 03/03/2025 1:45 PM EDT Office Visit [facility] PAIN MANAGEMENT [address] [facility] [address] [place] [address] Vazquez Christie PA-C Occipital neuralgia of right side (Primary Dx); Cervical spondylosis without myelopathy; Cervical pain (neck); Long-term use of high-risk medication; Cervical radiculopathy; Therapeutic drug monitoring; Chronic pain syndrome 03/03/2025 Travel 03/02/2025 Telephone [facility] PAIN MANAGEMENT [address] [facility] [address] [place] [address] Georgina Rainey MA 02/23/2025 Prior Authorization [facility] INTERNAL MEDICINE [address] [place] [address] Enedina Mcguire, BODY SHOP MECHANIC 02/23/2025 Results Follow-Up [facility] MEDIC[facility] [address] [place] [address] Enedina Mcgiure, BODY SHOP MECHANIC 02/20/2025 Telephone [facility] INTER[facility] MEDIC[facility] [address] [place] [address] Enedina Mcguire, BODY SHOP MECHANIC Results 02/20/2025 Telephone [facility] PAIN MANAGEMENT [address] [address] Georgina Rainey MA 02/19/2025 7:45 AM EDT Outside Facility Service [facility] PAIN MANAGEMENT [address] [address] Tye Song MD 02/19/2025 Documentation [facility] PAIN MANAGEMENT [address] [address] Tye Song MD 02/17/2025 3:15 PM EDT Office Visit [facility] MEDIC[facility] [address] [place] [address] Enedina Mcguire, BODY SHOP MECHANIC Encounter for follow-up (Primary Dx); Kidney transplant recipient; Liver transplant recipient; Vitamin D deficiency; Low testosterone in male; History of systemic steroid therapy 02/17/2025 Telephone [facility] [address] [place] [address] Enedina Mcguire, BODY SHOP MECHANIC 02/17/2025 Travel 02/11/2025 Telephone [facility] PAIN MANAGEMENT [address] [address] Tye Song MD [facility]- INJECTION SCHEDULE 01/08/2025 Telephone [facility] PAIN MANAGEMENT [address] [address] Vazquez Christie PA-C Appointment 01/01/2025 2:15 PM EDT Office Visit [facility] PAIN MANAGEMENT [address] [facility] [address] [place] [address] Vazquez Christie PA-C Cervical radiculopathy (Primary Dx); Long-term use of high-risk medication; Cervical spondylosis without myelopathy; Cervical pain (neck); Therapeutic drug monitoring; Chronic pain syndrome 01/01/2025 Travel 12/12/2024 Refill [facility] [address] [place] [address] Enedina Mcguire APRN Acquired hypothyroidism; [...] alcohol) 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 [facility] Utilities Answer Date Recorded In the past 12 months has e [employer], gas, oil, or water company threatened [...] 0 10/02/2022 [facility] of Occupat ional Health - Occupational [...] GED or equivalent No 07/09/2024 Preferred Language Filipino 07/09/2024 PHQ-2 Answer Date Recorded Patient Health [...] Description 05/18/2025 2:30 PM EST Office Visit [facility] INTER[facility] MEDIC[facility] [address] [place] [address] Enedina Mcguire, BODY SHOP MECHANIC [address] [place] [address] 05/21/2025 12:30 PM EST Office Visit [facility] [address] [facility] [address] [place] [address] Vazquez Christie PA-C [address] [facility] [address] [place] [address] Health Maintenance Due Date Last Done Comments Hepatitis B (2 of 3 - 19+ 3- dose series) 10/11/2010 09/13/2010 ANNUAL PHYSICAL 10/14/2024 10/15/2023, 10/02/2022 INFLUENZA VACCINE 12/12/2024 03/12/2024, 03/12/2023 LIPID PANEL 10/07/2025 10/07/2024, 07/2024, 07/14/2024, Additional history exists TDAP/TD VACCINES (3 - Td or Tdap) 06/03/2028 019, 09/13/2010 HEPATITIS C SCREENING Completed 11/25/2024 , 11/25/2024, 10/25/2024, Additional history exists Pneumococcal Vaccine 0-49 Discontinued Medical Devices Implanted Type Area Press Technician Device Identifier Shelf Expiration Date Model / Serial / Lot Coil Concerto Pgla Hel Detach Sys 10mm 30cm - [id number] Implanted:Qty: 1 on 07/03/2022 by Timmy Brunner MD at [facility] Implant Left: Vein EV3 A [employer] [id number] / / [id number] Description:Coil is in the s hort gastric vein Coil Concerto Nyl [place] Detach Sys 10mm 30cm - [id number] Implanted:Qty: 1 on 07/03/2022 by Timmy Brunner MD at [facility] Implant Left: Vein EV3 A [employer] [id number] / / [id number] Description:Short gastric ve in Coil Concerto Nyl [place] Detach Sys 10mm 30cm - [id number] Implanted:Qty: 1 on 07/03/2022 by Timmy Brunner MD at [facility] Implant Left: Vein EV3 A [employer] [id number] / / [id number] Description:Short gasrtic ve in Coil Concerto Nyl [place] Detach Sys 10mm 30cm - [id number] Implanted:Qty: 1 on 07/03/2022 by Timmy Brunner MD at [facility] Implant Left: Vein EV3 A [employer] [id number] / / [id number] Description:Short gastric ve in Coil Concerto Nyl [place] Detach Sys 8mm 30cm - [id number] Implanted:Qty: 1 on 07/03/2022 by Timmy Brunner MD at [facility] Implant Left: Vein EV3 A [employer] [id number] / / [id number] Description:Short gastric ve in Coil Concerto Nyl [place] Detach Sys 8mm 30cm - [id number] Implanted:Qty: 1 on 07/03/2022 by Timmy Brunner MD at [facility] Implant Left: Vein EV3 A [employer] [id number] / / [id number] Description:Short gastric ve in Sys Del Liq Emb Trufill Nbca 1g Vl - [id number] Implanted:Qty: 1 on 07/03/2022 by Timmy Brunner MD at [facility] Implant Left: Vein [facility] [id number] / / [id number] Description:Short gastric ve in Plug Vasc Anton Emb Ampltz .027 [id number] - [id number] Implanted:Qty: 1 on 07/03/2022 by Timmy Brunner MD at [facility] Implant Left: Vein [employer] [id number] / / [id number] Description:Coronary vein Coil Concerto Nyl [place] Detach Sys 8mm 30cm - [id number] Implanted:Qty: 1 on 07/03/2022 by Timmy Brunner MD at [facility] Implant Left: Vein EV3 A [employer] [id number] / / [id number] Description:CORONARY VEIN Gelatin Emb Embocube 5.02mm 50mg Red - [id number] Implanted:Qty: 1 on 07/03/2022 by Timmy Brunner MD at [facility] Implant Left: Vein [employer] [id number] / / [id number] Description:SHORT GASTRIC VE IN Coil Emb Dona 3.7/Lp .035in 14cm 12mm - [id number] Implanted:Qty: 1 on 07/03/2022 by Timmy Brunner MD at [facility] Implant Left: Vein [employer] [id number] / / [id number] Description:SHORT GASTRIC VE IN Coil Concerto Pgla [place] Detach Sys 12mm 30cm - [id number] Implanted:Qty: 1 on 07/03/2022 by Timmy Brunner MD at [facility] Implant Left: Vein EV3 A [employer] [id number] / / [id number] Description:Short gastric ve in Coil Concerto Nyl [place] Detach Sys 8mm 30cm - [id number] Implanted:Qty: 1 on 07/03/2022 by Timmy Brunner MD at [facility] Implant Left: Vein EV3 A [employer] [id number] / / [id number] Description:SHORT GASTRIC VE IN Coil Concerto Nyl [place] Detach Sys 8mm 30cm - [id number] Implanted:Qty: 1 on 07/03/2022 by Timmy Brunner MD at [facility] Implant Left: Vein EV3 A [employer] [id number] / / [id number] Description:Short gastric ve in Coil Concerto Nyl [place] Detach Sys 8mm 30cm - [id number] Implanted:Qty: 1 on 07/03/2022 by Timmy Brunner MD at [facility] Implant Left: Vein EV3 A [employer] [id number] / / [id number] Description:Short gastric ve in Coil Concerto Pgla Hel Detach Sys 14mm 40cm - [id number] Implanted:Qty: 1 on 07/03/2022 by Timmy Brunner MD at [facility] Implant Left: Vein EV3 A [employer] [id number] / / [id number] Description:Short gastric ve in Coil Concerto Pgla Hel Detach Sys 14mm 40cm - [id number] Implanted:Qty: 1 on 07/03/2022 by Timmy Brunner MD at [facility] Implant Left: Vein EV3 A [employer] [id number] / / [id number] Description:Short gastric ve in Coil Concerto Pgla [place] Detach Sys 14mm 30cm - [id number] Implanted:Qty: 1 on 07/03/2022 by Timmy Brunner MD at [facility] Implant Left: Vein EV3 A [employer] [id number] / / [id number] Description:Short gastric ve in Coil Concerto Pgla [place] Detach Sys 14mm 30cm - [id number] Implanted:Qty: 1 on 07/03/2022 by Timmy Brunner MD at [facility] Implant Left: Vein EV3 A [employer] [id number] / / [id number] Description:Short gastric ve in Coil Concerto Pgla [place] Detach Sys 14mm 30cm - [id number] Implanted:Qty: 1 on 07/03/2022 by Timmy Brunner MD at [facility] Implant Left: Vein EV3 A [employer] [id number] / / [id number] Description:Short gastric ve in Procedures Procedure Name Priority Date/Time Associated Diagnosis Comments SCANNED - LABS 02/23/2025 SCANNED - LABS 12/08/2024 SCANNED - LABS 12/08/2024 SCANNED - LABS 12/08/2024 HEPATITIS PANEL, ACUTE Add-On 07/08/2024 10:33 PM EST LIPID PANEL Routine 10/15/2023 4:16 PM EDT Mixed hyperlipidemia from Last 3 Months or Most Recently Relevant to Health Maintenance Results * LABS SCANNED (02/23/2025) Only the most recent of4 resultswithin the time period is included. Enedina Mcguire APRN LAB BLOOD ORDERABLES Fin al Result * Hepatitis Panel, Acute (07/08/2024 10:33 PM EST) Pathologist [facility] Hepatitis B Surface Ag Non-Reacti ve Non-Reacti ve 07/09/2024 2:07 PM EST [facility] Hep A IgM Non-Reacti ve Non-Reacti ve 07/09/2024 2:07 PM EST [facility] Hep B C IgM Non-Reacti ve Non-Reacti ve 07/09/2024 2:07 PM EST [facility] Hepatitis C Ab Non-Reacti ve Non-Reacti ve 07/09/2024 2:07 PM EST [facility] Blood Line / Unknown 07/08/2024 10 :33 PM EST 07/08/2024 10:42 PM EST Narrative [facility] - 07/09/2024 2:07 PM EST Results may be falsely decreased if patient taking Biotin. Chiquis JACOME LAB BLOOD ORDERABLES Final Resu lt [facility]
[address] [place] [address], * (ABNORMAL) Lipid Panel (10/15/2023 4:16 PM EDT) Pathologist [facility] Total Cholesterol 234(H) 0 - 200 mg/dL [...] APRN LAB BLOOD ORDERABLES Fin al Result [facility]
[address] [place] [address], from Last 3 Months or Most Recently [...] Of Support Discussed With: Patient Care Teams Solar System Designer Relationship Specialty Start Date End Date Enedina Mcguire APRN [address] [place] [address] PCP - General Nurse Practitioner 10/27/24
--- OUTSIDE RECORDS SUMMARY | 2025-03-10 09:34 | XMS_ITS | Encounter Summary ---
[facility] [address] [place] [address] Care Team Providers Care Medical Appliance Maker Name Role Phone Enedina Mcguire APRN Primary Care Provider + Encounter Details Date Type Department Care Team ([facility] st Contact Info) Description 10/07/2024 Results Follow-Up [facility] INTER[facility] MEDIC[facility] [address] [place] [address] Enedina Mcguire APRN [address] [place], [place] [phone] Social History Tobacco Use Types Packs/Day Years [...] Recorded In the past 12 months has [employer], [employer], oil, or water [employer] threatened to shut off services in [...] Brief Depression Severity Measure Score 0 10/02/2022 [facility] of Occupat ional [...] Visit [facility] INTER[facility] MEDICINE [address] [place] [address] Enedina Mcguire APRN [address] [place] [address] 05/21/2025 12:30 PM EST Office Visit [facility] PAIN MANAGEMENT [address] [facility] [address] [place] [address] Vazquez Christie PA-C [address] [place] [address] [place] [address] documented as of this encounter Visit Diagnoses Not on filedocumented in this encounter Additional Health Concerns Assessment Noted Time PHQ-2 Depression Total Score: 1 12/31/19 24 3:25 PM EDT documented as of this encounter Care Teams Medical Appliance Maker Relationship Specialty Start Date End Date Enedina Mcguire APRN [address] [place] [phone] PCP - General Nurse Practitioner 10/27/24 documented as of this encounter
--- OUTSIDE RECORDS SUMMARY | 2025-03-10 09:34 | XMS_ITS | Encounter Summary ---
Author Organization [facility] Address [address] [place] [address] Care Team Providers Care Truck Driving Instructor Name Role Phone Enedina Mcguire APRN [...] alcohol) 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 [facility] Utilities Answer Date Recorded In the past 12 months has [employer], gas, oil, or water [employer] threatened to shut off services in your [...] Brief Depression Severity Measure Score 0 10/02/2022 [facility] [place] of Occupat ional Health - Occupational Stress [...] GED or equivalent No 07/09/2024 Preferred Language [place] Citizen 07/09/2024 PHQ-2 Answer Date Recorded Patient Health [...] [facility] [address] [place] [address] Enedina Mcguire APRN [address] [place] [address] [phone] 05/21/2025 12:30 PM EST Office Visit [facility] [address] [address] Vazquez Christie PA-C [address] [place] [address] documented as of this encounter Visit Diagnoses Not on filedocumented in this encounter Additional Health Concerns Assessment Noted Time PHQ-2 Depression Total Score: 1 12/31/19 24 3:25 PM EDT documented as of this encounter Care Teams Truck Driving Instructor Relationship Specialty Start Date End Date Enedina Mcguire APRN [address] [place] [address] [id number] PCP - General Nurse Practitioner 10/27/24 documented as of this encounter
--- OUTSIDE RECORDS SUMMARY | 2025-03-10 09:34 | XMS_ITS | Encounter Summary ---
Author Organization [facility] Address [address] [place] [address] Care Team Providers Care Radiation / Chemistry Technician Name Role Phone Enedina Mcguire NP Primary Care Provider + [phone] Maureen Pantoja RN Unavailable Unavail able Source [...] release of HIV test results or diagnoses. [id number] Reason for Visit * Reason Onset Date Comments Medication Refill 01/21/2025 Encounter Details Date Type Department Care Team (Late st Contact Info) Description 01/21/2025 Refill [facility] Liver Transplant at [place] [place] [address] Lydia Sanchez MD [address] [place] [address] Liver/[place] [address] Encounter for therapeutic drug monitoring; S/P liver transplant ([facility]); Hypomagnesemia; Kidney transplant recipient; Hypertension, unspecified type; [...] 01/06/2025 Leisa Juarez MD Next appointment: 02/03/2025 [facility] Last labs: Lab Results Component Value [...] for therapeutic drug monitoring S/P liver transplant ([facility]) Hypomagnesemia Disorders of magnesium metabolism Kidney transplant [...] documented as of this encounter Care Teams Radiation / Chemistry Technician Relationship Specialty Start Date End Date Enedina Mcguire NP [address] [place] [address] PCP - General Internal Medicine 10/05/24 Maureen Pantoja RN Txp Post Coordinator Transplant Hepatology 10/28/24 documented as of this encounter
--- OUTSIDE RECORDS SUMMARY | 2025-03-10 09:34 | XMS_ITS | Encounter Summary ---
Author Organization [facility] Address [address] [place] [address] Care Team Providers Care Regional Marketing Director Name Role Phone Enedina Mcguire NP Primary Care Provider + [phone] Maureen Pantoja RN Unavailable Unavail able Source [...] release of HIV test results or diagnoses. [id number] Health Encounter Details Date Type Department Care Team (Late st Contact Info) Description 01/09/2025 Chart Note [facility] Liver Transplant at [address] [place] [phone] Marlene Ro MA 01/09 Labs entered from [facility] Social History Tobacco Use Types Packs/Day Years Used Date Smoking Tobacco: Former Cigarettes Smokeless Tobacco: Current Alcohol Use Standard Drinks/Week Comments Yes 0 (1 standard drink = 0.6 oz pure alcohol) History of alcohol abuse, reports no use in 3 week- typically endorses use as 4 glasses of wine a days Utilities Answer Date Recorded In the past 12 months has [employer], gas, oil, or water [employer] threatened to shut off services in [...] 2:24 PM EDT 01/09 Labs entered from [facility] documented in this encounter Plan of Treatment [...] Magnesium 1.3(A) 1.6 - 2.4 mg/dL Plasma [facility] Provider MD LAB BLOOD ORDERABLES Denisse [...] 1.8 10^3/mL Blood Narrative Resulting Agency Comment [facility] LAB BLOOD ORDERABLES Denisse l Result * (ABNORMAL) Renal Function Panel w/o EGFR (01/09/2025 12:23 PM EDT) Glucose 108 BUN 20 CO2 23(A) 13 - 22 mmol/L Creatinine 0.90 Potassium 4.3 Sodium 138 Chloride 107 Phosphorus 4.4 2.5 - 4.9 mg/dL Calcium 10.1 EGFR 93 mg/dL Albumin 5.0 3.5 - 5.0 g/dL Blood Narrative Resulting Agency Comment [facility] LAB BLOOD ORDERABLES Denisse l Result * Creatinine, urine, random (01/09/2025 12:23 PM EDT) Creatinine, Urine 66 Urine Narrative Resulting Agency Comment [facility] Result [facility] Provider URINE ORDERABLES Final Re sult * Urinalysis w/Rfl to Microscopic (01/09/2025 12:23 PM EDT) Glucose, UA Negative Negative Ketones, UA Negative Negative Blood, UA Negative Negative Bilirubin, UA Negative Negative Urobilinogen, UA Normal Normal Protein, UA Negative Negative Leukocyte Esterase, UA Negative Negative pH, UA 6.0 4.5 - 8.0 Specific [place], UA 1.020 1.005 - 1.030 Clarity, UA Clear Clear Color, UA Yellow Light Yellow, Yellow Urine Narrative Resulting Agency Comment [facility] Result [facility] Provider URINE ORDERABLES Final Re sult * Urine Protein, Tot, Random (w/o Creat) (01/09/2025 12:23 PM EDT) Total Protein, Ur 15.0 Urine Narrative Resulting Agency Comment [facility] Result [facility] Provider URINE ORDERABLES Final Re sult * Hepatic Function Panel (01/09/2025 12:23 PM EDT) Bilirubin, Direct 0.4 Bilirubin, Indirect 0.6 Alkaline Phosphatase 57 ALT 13 AST 22 Total Bilirubin 1.0 Total Protein 7.3 Plasma Narrative Resulting Agency Comment [facility] Result [facility] Provider LAB BLOOD ORDERABLES Denisse l Result * Urine culture (01/06/2025 12:23 PM EDT) Urine Culture, Comprehensive no growth URINE SPECIMEN / Unknown Result [facility] Provider MICROBIOLOGY - GENERAL OR DERABLES Final Result documented in this encounter Visit Diagnoses Not on filedocumented in this encounter Additional Health Concerns Infection Onset Date Last Indicated 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
--- OUTSIDE RECORDS SUMMARY | 2025-03-10 09:34 | XMS_ITS | Encounter Summary ---
Author Organization [facility] Address [address] [place] [address] Care Team Providers Care Records Supervisor Name Role Phone Jony Conde MD Primary Care Provider [phone] Lj Tapia RACKMAN Unavailable [phone] Enedina Mcguire RACKMAN Primary Care Provider + Nuria Fall SYSTEM CONSULTANT Unavailable Unavaila ble Encounter Details Date Type Department Care Team (Late st Contact Info) Description 07/03/2022 Orders Only External Location [address] [place] [address] Presley Montes De Oca MD [address] [id number] Social History Tobacco Use Types Packs/Day Years [...] on filedocumented in this encounter Care Teams Records Supervisor Relationship Specialty Start Date End Date Jony Conde MD [address] [place] [address] [address] [place] [address] PCP - General 07/18/22 12/03/22 Enedina Mcguire APRN [address] [place] [address] PCP - General 12/04/22 Lj Tapia APRN [facility]0 [place], [place] [id number] Referring Physician Gastroenterology 07/18/22 Nuria Fall LPN [facility] TCM Nurse 07/24/24 08/23/24 documented as of this encounter
--- OUTSIDE RECORDS SUMMARY | 2025-03-10 09:34 | XMS_ITS | Encounter Summary ---
Author Organization [facility] Address [address] [place] [address] Care Team Providers Care Certified Peer Specialist Name Role Phone Enedina Mcguire NP Primary Care Provider + [phone] Maureen Pantoja RN Unavailable Unavail able Source [...] release of HIV test results or diagnoses. [id number] Reason for Visit * Reason Comments Results Encounter Details Date Type Department Care Team (Late st Contact Info) Description 01/08/2025 Telephone [facility] Liver Transplant at [address] [address] Muareen Pantoja, RN Results Social History Tobacco Use [...] In the past 12 months has e [employer], gas, oil, or water [employer] threatened to shut off services in [...] as of this encounter Care Teams Certified Peer Specialist Relationship Specialty Start Date End Date Enedina Mcguire NP [address] [place] [address] PCP - General Internal Medicine 10/05/24 Maureen Pantoja RN Txp Post Coordinator Transplant Hepatology 10/28/24 documented as of this encounter
--- OUTSIDE RECORDS SUMMARY | 2025-03-10 09:34 | XMS_ITS | Encounter Summary ---
Author Organization [facility] Address [address] [place] [address] Care Team Providers Care Transmission Rebuilder Name Role Phone Enedina Mcguire APRN Primary Care Provider + Reason for Visit * Reason Comments Med Refill Encounter Details Date Type Department Care Team (Late st Contact Info) Description 07/20/2022 Refill [facility] GASTROENTEROLOGY [address] [facility] [address] [place] [address] Lj Tapia APRN [address] [place] [address] Secondary esophageal varices without bleeding Social History [...] or training? Not on file Preferred Language Mohawk 07/03/2022 Sex and Gender Information Value Date Recorded Sex Assigned at Male 08/20/2024 8:28 PM EDT Legal Sex Male 7:45 AM EDT Gender Identity Not on file Sexual Orientation Not on file documented as of this encounter Plan of Treatment Upcoming Encounters Date Type Department Care Team (Late st Contact Info) Description 05/18/2025 2:30 PM EST Office Visit [facility] INTERNAL MEDICINE [address] [place] [phone] Enedina Mcguire APRN [address] [place], [place] [id number] 05/21/2025 12:30 PM EST Office Visit [facility] PAIN MANAGEMENT [address] [address] Vazquez Christie PA-C [address] [facility] [address] [place] [address] documented as of this encounter Visit Diagnoses Diagnosis Secondary esophageal varices without bleeding documented in this encounter Additional Health Concerns Infection Onset Date Last Indicated Resolved Time COVID Screen (preop/placement) 07/28/2022 07/28/2022 07/29/2022 12:00 AM EDT documented as of this encounter Care Teams Transmission Rebuilder Relationship Specialty Start Date End Date Enedina Mcguire APRN [address] [place] [address] [id number] PCP - General Nurse Practitioner 10/27/24 documented as of this encounter
--- OUTSIDE RECORDS SUMMARY | 2025-03-10 09:34 | XMS_ITS | Encounter Summary ---
Author Organization [facility] Address [address] [place] [address] Care Team Providers Care Bun Icer Name Role Phone Jony Conde MD Primary Care Provider [phone] Lj Tapia AUTOMOBILE RADIO REPAIRER Unavailable [phone] Enedina Mcguire AUTOMOBILE RADIO REPAIRER Primary Care Provider + Nuria Fall MAJOR GIFTS MANAGER Unavailable Unavaila ble Encounter Details Date Type Department Care Team (Late st Contact Info) Description 07/04/2022 Orders Only External Location [address] [place] [address] Presley Montes De Oca MD [address] [id number] Social History Tobacco Use Types Packs/Day Years [...] on filedocumented in this encounter Care Teams Bun Icer Relationship Specialty Start Date End Date Jony Conde MD [address] [facility] [address] [place] [address] PCP - General 07/18/22 12/03/22 Enedina Mcguire APRN [address] [place] [address] PCP - General 12/04/22 Lj Tapia APRN [address] [place] [address] Referring Physician Gastroenterology 07/18/22 Nuria Fall LPN [facility] TCM Nurse 07/24/24 08/23/24 documented as of this encounter
--- OUTSIDE RECORDS SUMMARY | 2025-03-10 09:34 | XMS_ITS | Encounter Summary ---
Author Organization [facility] Address [address] [place] [address] Care Team Providers Care Mathematical Engineering Technician Name Role Phone Enedina Mcguire NP Primary Care Provider + [phone] Maureen Pantoja RN Unavailable Unavail able Source [...] release of HIV test results or diagnoses. [id number] Reason for Visit * Reason Comments Results Encounter Details Date Type Department Care Team (Riky st Contact Info) Description 01/09/2025 Telephone [facility] Liver Transplant at [address] [address] Marisela Martinez MA Results Social [...] In the past 12 months has e [employer], gas, oil, or water [employer] threatened to shut off services in your [...] follow-up on pending FK level. * Maureen aPntoja RN - 01/09/2025 1:41 PM EDT WBC of 1.8 (from 2.3). Awaiting hardcopy of results so Txp MA can enter into [employer] and RN Txp Coordinator can review. Patient was asked by Kidney Txp Provider to repeat labs today to check magnesium level. Will await all results. * Marisela Martinez MA - 01/09/2025 1:37 PM EDT Pts outpt lab [facility] called with a critical lab [...] as of this encounter Care Teams Mathematical Engineering Technician Relationship Specialty Start Date End Date Enedina Mcguire NP [address] [place] [address] PCP - General Internal Medicine 10/05/24 Maureen Pantoja, RN Txp Post Coordinator Transplant Hepatology 10/28/24 documented as of this encounter
--- OUTSIDE RECORDS SUMMARY | 2025-03-10 09:36 | XMS_ITS | Encounter Summary ---
Author Organization [facility] Address [address] [place] [address] Care Team Providers Care Stores Laborer Name Role Phone Enedina Mcguire NP Primary Care Provider + [phone] Maureen Pantoja RN Unavailable Unavail able Chris Orosco MD Unavailable [phone] Source Comments This information has been disclosed [...] release of HIV test results or diagnoses. [id number] Health Reason for Visit * Reason Comments Results Encounter Details Date Type Department Care Team (Late st Contact Info) Description 03/06/2025 Telephone [facility] Liver Transplant at [address] [address] Maureen Pantoja, ЮЛИЯ Results Social History Tobacco Use Types Packs/Day Years Used Date Smoking Tobacco: Former Cigarettes Smokeless Tobacco: Current Alcohol Use Standard Drinks/Week Comments Yes 0 (1 standard drink = 0.6 oz pure alcohol) History of alcohol abuse, reports no use in 3 week- typically endorses use as 4 glasses of wine a days Utilities Answer Date Recorded In the past 12 months has [employer], gas, oil, or water company threatened to [...] Progress Notes * Maureen Pantoja RN - 03/06/2025 10:26 AM EDT Lab results from 03/04/25 reviewed. Cr 1.20 (from 1.00); BUN 18 (from 18). LFTs improved slightly with restarting MMF. Alk phos 155 (from 184), AST/ALT 47/39. FK pending. Will follow-up. PEth pending. Will follow-up. Current IS: FK 6 mg BID (increased 02/26/25) MMF 250 mg BID (restarted 02/26/25) Prednisone 10 mg daily documented in this encounter Plan of Treatment Not on file documented as of this encounter Visit Diagnoses Not on filedocumented in this encounter Additional Health Concerns Infection Onset Date Last Indicated Resolved Time C. difficile 01/28/2025 01/28/2025 Assessment Noted Time PHQ-9 Depression Total Score: 2 12/11/19 9:00 AM EDT documented as of this encounter Care Teams Stores Laborer Relationship Specialty Start Date End Date Enedina Mcguire NP [address] [place] [address] PCP - General Internal Medicine 10/05/24 Maureen Pantoja, ЮЛИЯ Txp Post Coordinator Transplant Hepatology 10/28/24 Chris Orosco MD [address] [place] [address] [address] [place] [address] Consulting Physician Transplant Hepatology 02/26/25 documented as of this encounter
--- OUTSIDE RECORDS SUMMARY | 2025-03-10 09:36 | XMS_ITS | Encounter Summary ---
Author Organization [facility] Address [address] [place] [address] Care Team Providers Care Licensed Physical Therapist Assistant Name Role Phone Enedina Mcguire NP Primary Care Provider + [phone] Maureen Pantoja RN Unavailable Unavail able Source [...] release of HIV test results or diagnoses. [id number] Health Encounter Details Date Type Department Care Team (Late st Contact Info) Description 01/20/2025 Chart Note [facility] Liver Transplant at [address] [place] [phone] Marlene Ro MA 01/20 [facility] [...] Recorded In the past 12 months has [employer], gas, oil, or water [employer] threatened to shut off services in your [...] Progress Notes * Marlene oR MA - 01/20/2025 3:38 PM EDT Images from the original note were not included. 01/20 Labs entered from [facility] [...] Tacrolimus level (01/20/2025 12:03 PM EDT) Pathologist [facility] Tacrolimus Lvl 11.3 6 - 15 ng/mL Whole Blood Result [facility] Provider LAB BLOOD ORDERABLES Denisse l Result * (ABNORMAL) Magnesium (01/20/2025 12:03 PM EDT) [facility] Magnesium 1.1(A) 1.6 - 2.4 mg/dL Plasma Narrative Resulting Agency Comment [facility] Result [facility] LAB BLOOD ORDERABLES Denisse l Result * (ABNORMAL) Renal Function Panel w/o EGFR (01/20/2025 12:03 PM EDT) [facility] Glucose 101 BUN 14 CO2 23(A) 13 - 22 mmol/L Creatinine 1.10 Potassium 3.8 Sodium 141 Chloride 106 Phosphorus 4.2 2.5 - 4.9 mg/dL Calcium 10.2 EGFR 74 mg/dL Albumin 4.9 3.5 - 5.0 g/dL Blood Narrative Resulting Agency Comment [facility] Result [facility] LAB BLOOD ORDERABLES Denisse l Result * Creatinine, urine, random (01/20/2025 12:03 PM EDT) [facility] Creatinine, Urine 78 Urine Narrative Resulting Agency Comment [facility] Result [facility] Provider URINE ORDERABLES Final Re sult * (ABNORMAL) Urinalysis w/Rfl to Microscopic (01/20/2025 12:03 PM EDT) [facility] Glucose, UA Negative Negative Ketones, UA Negative Negative Blood, UA Negative Negative Bilirubin, UA Negative Negative Urobilinogen, UA Normal Normal Protein, UA Trace(A) Negative Nitrite, UA Negative Negative pH, UA 5.5 4.5 - 8.0 Specific [place], UA 1.020 1.005 - 1.030 Clarity, UA Clear Clear Color, UA Yellow Light Yellow, Yellow Urine Narrative Resulting Agency Comment [facility] Result [facility] Provider URINE ORDERABLES Final Re sult [...] 10^3/mL Blood Narrative Resulting Agency Comment [facility] Result [facility] Provider LAB BLOOD ORDERABLES Denisse l Result * Urine Protein, Tot, Random (w/o Creat) (01/20/2025 12:03 PM EDT) Total Protein, Ur 25.0 Urine Narrative Resulting Agency Comment [facility] Result [facility] Provider URINE ORDERABLES Final Re sult * Hepatic Function Panel (01/20/2025 12:03 PM EDT) Bilirubin, Direct 0.2 Bilirubin, Indirect 0.6 Alkaline Phosphatase 52 ALT 20 AST 28 Total Bilirubin 0.8 Total Protein 7.1 Plasma Narrative Resulting Agency Comment [facility] [...] as of this encounter Care Teams Licensed Physical Therapist Assistant Relationship Specialty Start Date End Date Enedina Mcguire NP [address] [place] [address] PCP - General Internal Medicine 10/05/24 Maureen Pantoja, ЮЛИЯ Txp Post Coordinator Transplant Hepatology 10/28/24 documented as of this encounter
--- OUTSIDE RECORDS SUMMARY | 2025-03-10 09:36 | XMS_ITS | Encounter Summary ---
Author Organization [facility] Address [address] [place] [address] Care Team Providers Care Maintenance Planner Name Role Phone Enedina Mcguire NP Primary Care Provider + [phone] Maureen Pantoja RN Unavailable Unavail able Source [...] release of HIV test results or diagnoses. [id number] Reason for Visit * Reason Comments Medication Management Encounter Details Date Type Department Care Team (Late st Contact Info) Description 01/26/2025 Telephone [facility] Liver Transplant at [address] [address] Maureen Pantoja, public address systems mechanic Management Social History Tobacco Use Types Packs/Day Years Used Date Smoking Tobacco: Former Cigarettes Smokeless Tobacco: Current Alcohol Use Standard Drinks/Week Comments Yes 0 (1 standard drink = 0.6 oz pure alcohol) History of alcohol abuse, reports no use in 3 week- typically endorses use as 4 glasses of wine a days Utilities Answer Date Recorded In the past 12 months has [employer], gas, oil, or water [employer] threatened to shut off services in your [...] today. Med list updated. Patient notified via [employer]. CMV monitoring DUE ~ 02/09, 02/23, 03/09. CMV PCR orders placed. Txp MA to send to outside lab. 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
--- OUTSIDE RECORDS SUMMARY | 2025-03-10 09:36 | XMS_ITS | Encounter Summary ---
Author Organization [facility] Address [address] [place] [address] Care Team Providers Care Magician Helper Name Role Phone Enedina Mcguire NP Primary Care Provider + [phone] Maureen Pantoja RN Unavailable Unavail able Source [...] release of HIV test results or diagnoses. [id number] Health Encounter Details Date Type Department Care Team (Late st Contact Info) Description 01/27/2025 Telephone [facility] Liver Transplant at [address] [address] Marlene Ro MA Social History [...] Recorded In the past 12 months has [employer], gas, oil, or water [employer] threatened to shut off services in your [...] AM EDT Called and spoke to Gladys, branch operations specialist buffet manager, and taran Rosario about his 1 [...] documented as of this encounter Care Teams Magician Helper Relationship Specialty Start Date End Date Enedina Mcguire NP [address] [place] [address] PCP - General Internal Medicine 10/05/24 Maureen Pantoja, RN Txp Post Coordinator Transplant Hepatology 10/28/24 documented as of this encounter
--- OUTSIDE RECORDS SUMMARY | 2025-03-10 09:36 | XMS_ITS | Encounter Summary ---
Author Organization [facility] Address [address] [place] [id number] Care Team Providers Care Project Facilitator Name Role Phone Enedina Mcguire NP Primary Care Provider + [phone] Maureen Pantoja RN Unavailable Unavail able Source [...] release of HIV test results or diagnoses. [id number] Reason for Visit * Reason Onset Date Comments Medication Refill 01/21/2025 Encounter Details Date Type Department Care Team (Late st Contact Info) Description 01/21/2025 Refill [facility] Liver Transplant at [address] [place] [address] Rose Montelongo MD [facility] [address] [place], [place] [id number] Social History Tobacco Use Types Packs/Day Years Used Date Smoking Tobacco: Former Cigarettes Smokeless Tobacco: Current Alcohol Use Standard Drinks/Week Comments Yes 0 (1 standard drink = 0.6 oz pure alcohol) History of alcohol abuse, reports no use in 3 week- typically endorses use as 4 glasses of wine a days Utilities Answer Date Recorded In the past 12 months has [employer], gas, oil, or water [employer] threatened to shut off services in your [...] as of this encounter Care Teams Project Facilitator Relationship Specialty Start Date End Date Enedina Mcguire NP [address] [place] [place] [address] PCP - General Internal Medicine 10/05/24 Maureen Pantoja, ЮЛИЯ Txp Post Coordinator Transplant Hepatology 10/28/24 documented as of this encounter
--- OUTSIDE RECORDS SUMMARY | 2025-03-10 09:36 | XMS_ITS | Encounter Summary ---
Author Organization [facility] Address [address] [place] [id number] Care Team Providers Care Candy Supervisor Name Role Phone Enedina Mcguire NP Primary Care Provider + [phone] Maureen Pantoja RN Unavailable Unavail able Source [...] release of HIV test results or diagnoses. [id number] Reason for Visit * Reason Comments Results Encounter Details Date Type Department Care Team (Late st Contact Info) Description 01/23/2025 Telephone [facility] Liver Transplant at [address] [address] Maureen Pantoja, RN Results Social [...] Recorded In the past 12 months has [employer], gas, oil, or water company threatened to [...] that he is on his way to [facility] ED. Message routed to Inpatient Txp Team. * Maureen Pantoja RN - 01/27/2025 2:28 PM EDT Reviewed with Dr. Alonzo who recommends that patient go to ED. Local [place], but would prefer [facility] to do full infectious work-up in context of febrile neutropenia. Spoke with patient again. Patient very reluctant to go to ED. Advised [place] to go to local hospital, but that he needs further testing to rule out infection and get treatment if needed. Patient agreeable to going to local hospital. Patient requested [employer] message stating what to tell [facility] ED. Message sent. * Maureen Pantoja RN [...] 01/27/2025 10:25 AM EDT FK 11.3 Received [employer] message from patient's that patient began feeling [...] documented as of this encounter Care Teams Candy Supervisor Relationship Specialty Start Date End Date Enedina Mcguire NP [address] [place] [address] PCP - General Internal Medicine 10/05/24 Maureen Pantoja, RN Txp Post Coordinator Transplant Hepatology 10/28/24 documented as of this encounter
--- OUTSIDE RECORDS SUMMARY | 2025-03-10 09:38 | XMS_ITS | Clinical Summary ---
Author Organization [facility] Address [address] [place] [id number] Care Team Providers Care Ice Cream Dispenser Name Role Phone Enedina Mcguire NP Primary Care Provider + [phone] Maureen Pantoja RN Unavailable Unavail able Chris Orosco MD Unavailable [phone] Source Comments This information has been disclosed [...] therelease of HIV test results or diagnoses. [id number] Allergies Active Allergy Reactions [...] Encounter for therapeutic drug monitoring,S/P liver transplant ([facility]),Hypomagn esemia,Kidney transplant recipient,Hyperten kevin, unspecified type,Gastroesophag eal [...] Encounter for therapeutic drug monitoring,S/P liver transplant ([facility]),Hypomagn esemia,Kidney transplant recipient,Hyperten kevin, unspecified type,Gastroesophag eal [...] :Encounter for therapeutic drug monitoring,S/P liver transplant ([facility]),Hypomagn esemia,Kidney transplant recipient,Hyperten kevin, unspecified type,Gastroesophag eal [...] Encounter for therapeutic drug monitoring,S/P liver transplant ([facility]),Hypomagn esemia,Kidney transplant recipient,Hyperten kevin, unspecified type,Gastroesophag eal reflux disease, unspecified whether esophagitis present Take 1 tablet (20 mg total) by mouth 2 times a day. 60 tablet 2 025 02/26 Discontinued mycophenolate (CELLCEPT) 250 mg capsuleIndications :Encounter for therapeutic drug monitoring,S/P liver transplant ([facility]),Hypomagn esemia,Kidney transplant recipient,Hyperten kevin, unspecified type,Gastroesophag eal [...] :Encounter for therapeutic drug monitoring,S/P liver transplant ([facility]),Hypomagn esemia,Kidney transplant recipient,Hyperten kevin, unspecified type,Gastroesophag [...] Encounters Date Type Department Care Team Description 03/06/2025 Telephone [facility] Liver Transplant at [address] [place] [address] Maureen Pantoja, RN Results 03/04/2025 Chart Note [facility] Liver Transplant at [address] [phone] Marlene Ro MA 03/04 Labs entered from [facility] 03/02/2025 Refill [facility] [address] [place] [phone] Feliciano Gomez, MILK POWDER GRINDER 03/02/2025 Telephone [facility] Liver Transplant at [address] [phone] Marlene Ro MA 02/26/2025 Telephone [facility] Liver Transplant at [address] [place] [phone] Maureen Pantoja, ЮЛИЯ Results; Medication Dose Change 02/26/2025 Chart Note [facility] Liver Transplant at [address] [place] [phone] Marlene Ro MA 02/24 Labs entered from [facility] 02/25/2025 10:50 AM EDT Office Visit [facility] Kidney Transplant at [address] [place] [phone] Bruno Gonzalez MD Kidney transplant recipient (Primary Dx); Neck pain with history of cervical spinal surgery; S/P liver transplant ([facility]) 02/25/2025 Refill [facility] Liver Transplant at [address] [place] [address] Lydia Sanchez MD Encounter for therapeutic drug monitoring; S/P liver transplant ([facility]); Hypomagnesemia; Kidney transplant recipient; Hypertension, unspecified type; Gastroesophageal reflux disease, unspecified whether esophagitis present 02/23/2025 Chart Note [facility] Liver Transplant at [address] [place] [address] Marlene Ro MA 02/18 Labs entered from [facility] 02/23/2025 Telephone [facility] Liver Transplant at [address] [place] [address] Marlene Ro MA 02/17/2025 Telephone [facility] Liver Transplant at [address] [place] [address] Marlene Ro MA 02/13/2025 Telephone [facility] Liver Transplant at [address] [place] [address] Marisela Martinez MA Results 02/12/2025 10:50 AM EDT Office Visit [facility] Liver Transplant at [address] [place] [address] Chris Orosco MD Liver transplant recipient ([facility]) (Primary Dx); History of systemic steroid therapy; Kidney transplant recipient; Immunosuppressive management encounter following liver transplant ([facility]); Encounter for monitoring tacrolimus therapy; Vitamin D deficiency; Encounter for therapeutic drug monitoring; S/P liver transplant ([facility]); Hypomagnesemia; Hypertension, unspecified type; Gastroesophageal reflux disease, unspecified whether esophagitis present; Alcohol use disorder; Immunosuppression ([facility]); Viral disease exposure 02/12/2025 Social Work [facility] Liver Transplant at [address] [place] [phone] Kaylin Willard MSW 02/12/2025 Telephone [facility] Liver Transplant at [address] [place] [phone] Maureen Pantoja, ЮЛИЯ Results 02/10/2025 Chart Note [facility] Liver Transplant at [address] [place] [phone] Marlene Ro MA 02/10 Labs entered from [facility] 02/09/2025 Chart Note [facility] Liver Transplant at [address] [place] [phone] Marisela Martinez MA 02/09/2025 Telephone [facility] Liver Transplant at [address] [place] [phone] Marisela Martinez MA 02/08/2025 Refill [facility] Liver Transplant at [address] [place] [phone] Harvey Domínguez III, MD 02/04/2025 Telephone [facility] Liver Transplant at [address] [place] [address] Marlene Ro MA 02/03/2025 Telephone [facility] Liver Transplant at [address] [place] [phone] Mitzy Schneider MA Results 02/03/2025 Telephone [facility] Liver Transplant at [address] [place] [phone] Marlene Ro MA 02/03/2025 Chart Note [facility] Liver Transplant at [address] [place] [address] Marlene Ro MA 02/03 Labs entered from [facility] 01/27/2025 6:28 PM EDT - 01/30/2025 2:25 PM EDT Hospital Encounter [facility] [address] [place] [phone] Sunny Wei MD Haugen, Christine, MD Diarrhea of presumed infectious origin (Primary Dx); Immunosuppression ([facility]) Discharge Disposition: Home or Self Care WITHOUT Home Care Services 01/27/2025 Travel 01/27/2025 Telephone [facility] Liver Transplant at [address] [place] [address] Marlene Ro MA 01/26/2025 Telephone [facility] Liver Transplant at [address] [place] [address] Maureen Pantoja, research compliance specialist Management 01/23/2025 Telephone [facility] Liver Transplant at [address] [place] [address] Maureen Pantoja, RN Results 01/21/2025 Refill [facility] Liver Transplant at [address] [place] [address] Rose Montelongo MD 01/21/2025 Refill [facility] Liver Transplant at [address] [place] [address] Lydia Sanchez MD Encounter for therapeutic drug monitoring; S/P liver transplant ([facility]); Hypomagnesemia; Kidney transplant recipient; Hypertension, unspecified type; Gastroesophageal reflux disease, unspecified whether esophagitis present 01/21/2025 Refill [facility] Liver Transplant at [address] [place] [address] Harvey Domínguez III, MD Encounter for therapeutic drug monitoring; S/P liver transplant ([facility]); Hypomagnesemia; Kidney transplant recipient; Hypertension, unspecified type; Gastroesophageal reflux disease, unspecified whether esophagitis present 01/20/2025 Chart Note [facility] Liver Transplant at [address] [place] [phone] Marlene Ro MA 01/20 Labs entered from [facility] 01/19/2025 Telephone [facility] Liver Transplant at [address] [place] [address] Gladis Chisholm MA Critical Lab Results 01/17/2025 Refill [facility] Liver Transplant at [address] [place] [address] Harvey Domínguez III, MD Encounter for therapeutic drug monitoring; S/P liver transplant ([facility]); Hypomagnesemia; Kidney transplant recipient; Hypertension, unspecified type; Gastroesophageal reflux disease, unspecified whether esophagitis present 01/16/2025 Telephone [facility] Liver Transplant at [address] [place] [phone] Maureen Pantoja, RN Results 01/15/2025 Chart Note [facility] Liver Transplant at [address] [place] [phone] Marlene Ro MA 01/14 Labs entered from [facility] 01/15/2025 Telephone [facility] Liver Transplant at [address] [place] [phone] Marlene Ro MA 01/15/2025 Telephone [facility] Liver Transplant at [address] [place] [phone] Kaylin Willard MSW 01/14/2025 Telephone [facility] Liver Transplant at [address] [place] [address] Marlene Ro MA 01/09/2025 Chart Note [facility] Liver Transplant at [address] [address] Marlene Ro MA 01/09 Labs entered from [facility] 01/09/2025 Telephone [facility] Liver Transplant at [address] [address] Marisela Martinez MA Results 01/08/2025 Telephone [facility] Liver Transplant at [address] [address] Maureen Pantoja RN Results 01/06/2025 9:30 AM EDT Office Visit [facility] Liver Transplant at [address] [phone] Leisa Juarez MD Kidney transplant recipient (Primary Dx); Hypomagnesemia; Hyperphosphatemia; Immunosuppression (CMS-HCC); Viral disease exposure; Hypertension, unspecified type 01/06/2025 8:20 AM EDT Office Visit [facility] Liver Transplant at [address] [place] [address] Cosmo Pacheco MD Paci, Philippe, MD S/P liver transplant (CMS-HCC) (Primary Dx); Immunosuppression ([facility]); Kidney transplant recipient; Alcohol use disorder 01/06/2025 Social Work [facility] Liver Transplant at [address] [place] [address] Kaylin Willard MSW 01/05/2025 Chart Note [facility] Liver Transplant at [address] [place] [phone] Marlene Ro MA 01/05 Labs entered from [facility] 01/05/2025 Telephone [facility] Liver Transplant at [address] [place] [address] Marisela Martinez MA Critical Lab Results 01/05/2025 Telephone [facility] Liver Transplant at [address] [place] [address] Maureen Pantoja, RN Results 12/31/2024 Chart Note [facility] Liver Transplant at [address] [place] [address] Marlene Ro MA 12/31 Labs entered from [facility] 12/29/2024 Telephone [facility] Liver Transplant at [address] [address] Maureen Pantoja, RN Results 12/23/2024 Chart Note [facility] Liver Transplant at [address] [place] [address] Maureen Pantoja, corporate technical recruiter results from 12/23/24 entered from [facility]. 12/22/2024 Telephone [facility] Liver Transplant at [address] [place] [address] Maureen Pantoja, RN Results; Medication Dose Change 12/21/2024 Refill [facility] Liver Transplant at [address] [place] [address] Lydia Sanchez MD Encounter for therapeutic drug monitoring; S/P liver transplant (CMS-HCC); Hypomagnesemia; Kidney transplant recipient; Hypertension, unspecified type; Gastroesophageal reflux disease, unspecified whether esophagitis present 12/18/2024 2:00 PM EDT Office Visit [facility] Psychiatry Transplant at [address] [phone] Lizeth Warren PsyD Alcohol use disorder (Primary Dx); PTSD (post-traumatic stress disorder) 12/18/2024 Refill [facility] Liver Transplant at [address] [address] Maureen Pantoja, ЮЛИЯ Encounter for therapeutic drug monitoring; S/P liver transplant ([facility]); Hypomagnesemia; Kidney transplant recipient; Hypertension, unspecified type; Gastroesophageal reflux disease, unspecified whether esophagitis present 12/17/2024 Chart Note [facility] Liver Transplant at [address] [phone] Marlene Ro MA 12/16 Labs entered [facility] 12/12/2024 Telephone [facility] Liver Transplant at [address] [address] Maureen Pantoja, ЮЛИЯ Results 12/09/2024 11:45 AM EDT Office Visit [facility] Psychiatry Transplant at [address] [phone] Rebekah Linares LIC[facility] Alcohol use disorder (Primary Dx) 12/09/2024 10:20 AM EDT Office Visit [facility] Liver Transplant at [address] [address] Harvey Domínguez III, MD Encounter for therapeutic drug monitoring (Primary Dx); S/P liver transplant ([facility]); Hypomagnesemia; Kidney transplant recipient; Hypertension, unspecified type; Gastroesophageal reflux disease, unspecified whether esophagitis present 12/09/2024 9:50 AM EDT Office Visit [facility] Liver Transplant at [address] [address] Leisa Juarez MD Kidney transplant recipient (Primary Dx); Immunosuppressive management encounter following liver transplant (CMS-HCC); Hypomagnesemia; S/P liver transplant (CMS-HCC); Hypertension, unspecified type; Hyperparathyroidism (CMS-HCC) 12/09/2024 Social Work [facility] Liver Transplant at [address] [address] Kaylin Willard MSW 12/09/2024 Orders Only [facility] Liver Transplant at [address] [address] Maureen Pantoja, ЮЛИЯ 12/09/2024 Orders Only [facility] Liver Transplant at [address] [address] Maureen Pantoja, ЮЛИЯ Kidney transplant recipient (Primary Dx); Liver transplant recipient (CMS-HCC); Viral disease exposure; Immunosuppression ([facility]) 12/09/2024 Telephone [facility] Liver Transplant at [address] [address] Mitzy Schneider MA 12/09/2024 Chart Note [facility] Liver Transplant at [address] [address] Marlene Ro MA from Last 3 Months Social History [...] Recorded In the past 12 months has [employer], gas, oil, or water [employer] threatened to shut off services in your [...] 10/25/2024, 10/05/2024, Additional history exists Renal Function/GFR 03/04/2026 03/04/2025, 1 , 02/18/2025, Additional history exists Immunization: DTaP/Tdap/Td ( 3 - Td or Tdap) 06/03/2028 06/03/2018, 09/13/2010 Hepatitis C Screening (MyChart) Completed 10/25/2024, 10/07/2024, 10/06/2024, Additional history exists HIV Screening Completed 11/25/2024, 10/12, 10/07/2024 Procedures Procedure Name Priority Date/Time Associated Diagnosis Comments MAGNESIUM Routine 03/04/2025 11:29 AM EDT RENAL FUNCTION PANEL W/O EGFR Routine 03/04/2025 11:29 AM EDT CREATININE, URINE, RANDOM Routine 2024 11:29 AM EDT URINALYSIS W/RFL TO MICROSCOPIC Routine 03/04/2025 11:29 AM EDT VITAMIN D 25 HYDROXY Routine 03/04/2025 11:29 AM EDT CBC AND DIFFERENTIAL Routine 03/04/2025 11:29 AM EDT URINE PROTEIN, TOTAL, RANDOM (W/O CREATININE) Routine 03/04/2025 11:29 AM EDT HEPATIC FUNCTION PANEL Routine 11:29 AM EDT URINE CULTURE Routine 03/04/2025 11:29 AM EDT TACROLIMUS LEVEL Routine 02/24/2025 1:03 PM [...] Routine 9:30 PM EDT UPPER RESPIRATORY VIRAL/BACTERIAL PANEL-CONTACT WORKER ONLY Routine 01/27/2025 9:30 PM EDT LACTIC [...] S Routine 01/27/2025 8:20 PM EDT FUNGITELL OWFO-[id number]-HXBXFT Routine 01/28/20 8:20 PM EDT KATIE SCHAFER [...] URINE CULTURE Routine 12/08/2024 10:43 AM EDT HIV-1 RNA, QUANTITATIVE, PCR Routine 11/25/2024 8:42 AM EDT S/P liver transplant (CMS-HCC) Immunosuppression ([facility]) Viral disease exposure HEPATITIS C ANTIBODY STAT 10/25/2024 10:17 PM EDT TSH Routine 10/07/2024 6:37 PM EDT from Last 3 Months or Most Recently Relevant to Health Maintenance Results * Urine Protein, Tot, Random (w/o Creat) (03/04/2025 11:29 AM EDT) Only the most recent of11 resultswithin the time period is included. Total Protein, Ur 27.0 Urine Narrative Resulting Agency Comment [facility] Historical Provider URINE ORDERABLES Final Re sult * Hepatic Function Panel (03/04/2025 11:29 AM EDT) Only the most recent of17 resultswithin the time period is included. Bilirubin, Direct 0.2 Bilirubin, Indirect 0.7 Alkaline Phosphatase 155 ALT 39 AST 47 Total Bilirubin 0.9 Total Protein 7.5 Plasma Narrative Resulting Agency Comment [facility] Historical Provider LAB BLOOD ORDERABLES Denisse l Result * Creatinine, urine, random (03/04/2025 11:29 AM EDT) Only the most recent of11 resultswithin the time period is included. Creatinine, Urine 111 Urine Narrative Resulting Agency Comment [facility] Provider URINE ORDERABLES Final Re sult * Vitamin D 25 hydroxy (03/04/2025 11:29 AM EDT) Vit D, 25-Hydroxy 38.4 Serum Narrative Resulting Agency Comment [facility] Provider LAB BLOOD ORDERABLES Denisse l Result * (ABNORMAL) Urinalysis w/Rfl to Microscopic (03/04/2025 11:29 AM EDT) Only the most recent of11 resultswithin the time period is included. Glucose, UA Negative Negative Ketones, UA Negative Negative Blood, UA Negative Negative Bilirubin, UA Negative Negative Urobilinogen, UA Normal Normal Protein, UA Trace(A) Negative Nitrite, UA Negative Negative pH, UA 5.5 4.5 - 8.0 Specific [place], UA 1.020 1.005 - 1.030 Clarity, UA Clear Clear Color, UA Yellow Light Yellow, Yellow Urine Narrative Resulting Agency Comment [facility] Provider URINE ORDERABLES Final Re sult * (ABNORMAL) CBC and differential (03/04/2025 11:29 AM EDT) Only the most recent of14 resultswithin the time period is included. Hemoglobin 13.0(A) 13.5 - 17.5 g/dL Hematocrit 36.3(A) 41 - 53 % RDW 14.4 11.5 - 14.5 % Lymphocytes Absolute 1.7 / L Monocytes Absolute 0.7 / L Eosinophils Absolute 0.1 / L Basophils Absolute 0.1 / L Neutrophils Relative 66.4 46 - 78 % Lymphocytes Relative 22.2 18 - 52 % Monocytes Relative 9.0 3 - 10 % Eosinophils Relative 1.3 0 - 6 % Basophils Relative 0.7 0 - 3 % Neutrophils Absolute 5.1 / L MCH 33.5 26.0 - 34.0 pg MCHC 35.8 30 - 37 g/dL MCV 93.6 82.0 - 108.0 fL Platelets 115 K/ L RBC 3.88(A) 4.50 - 5.90 10^6/ L WBC 7.7 10^3/mL Blood Narrative Resulting Agency Comment [facility] Result [facility] LAB BLOOD ORDERABLES Denisse l Result * Urine culture (03/04/2025 11:29 AM EDT) Only the most recent of5 resultswithin the time period is included. Urine Culture, Comprehensive no growth after 48 hours URINE SPECIMEN / Unknown Result [facility] MICROBIOLOGY - GENERAL OR DERABLES Final Result * (ABNORMAL) Magnesium (03/04/2025 11:29 AM EDT) Only the most recent of16 resultswithin the time period is included. Magnesium 1.4(A) 1.6 - 2.4 mg/dL Plasma Narrative Resulting Agency Comment [facility] Result [facility] LAB BLOOD ORDERABLES Denisse l Result * (ABNORMAL) Renal Function Panel w/o EGFR (03/04/2025 11:29 AM EDT) Only the most recent of13 resultswithin the time period is included. Glucose 120 BUN 18 CO2 27(A) 13 - 22 mmol/L Creatinine 1.20 Potassium 3.7 Sodium 138 Chloride 98 Phosphorus 4.4 2.5 - 4.9 mg/dL Calcium 9.4 EGFR 67 mg/dL Albumin 4.8 3.5 - 5.0 g/dL Blood Narrative Resulting Agency Comment [facility] Result [facility] LAB BLOOD ORDERABLES Denisse l Result * Tacrolimus level (02/24/2025 1:03 PM EDT) Only the most recent of15 resultswithin the time period is included. Tacrolimus Lvl 7.1 6 - 15 ng/mL Whole Blood Result [facility] MD LAB BLOOD ORDERABLES Denisse l Result * Phatidylethanol (PEth) (02/18/2025 10:34 AM EDT) Only the most recent of4 resultswithin the time period is included. Phosphatidylethanol (PEth) Positive 371 Whole Blood Result [facility] Provider LAB BLOOD ORDERABLES Denisse l Result * Cytomegalovirus DNA, Quant, RT PCR (02/10/2025 9:33 AM EDT) Only the most recent of3 resultswithin the time period is included. CMV Quant DNA PCR (Plasma) Negative Plasma Result [facility] Provider LAB BLOOD ORDERABLES Denisse l Result * BK Virus Quantitative by PCR, Blood (02/10/2025 9:33 AM EDT) Only the most recent of4 resultswithin the time period is included. BK Virus Quant PCR PL Negative Plasma Result [facility] Provider LAB BLOOD ORDERABLES Denisse l Result * Clostridium difficile DNA Amplification (02/03/2025 11:04 AM EDT) Only the most recent of2 resultswithin the time period is included. Clost. Diff DNA Amp. Positive Norovirus Detected FECES / Unknown Result [facility] Provider BODY FLUIDS AND STOOLS OR DERABLES Edited Result - Final * (ABNORMAL) Differential (01/30/2025 7:41 AM EDT) Only the most recent of2 resultswithin the time period is included. Neutrophils Relative 39.1(L) 40.0 - 80.0 % 01/30/2025 8:09 AM EDT [facility] Lymphocytes Relative 43.8 15.0 - 45.0 % 01/30/2025 8:09 AM EDT [facility] Monocytes Relative 14.2(H) 0.0 - 12.0 % 01/30/2025 8:09 AM EDT [facility] Eosinophils Relative 2.2 0.0 - 8.0 % 01/30/2025 8:09 AM EDT [facility] Basophils Relative 0.7 0.0 - 1.0 % 01/30/2025 8:09 AM EDT [facility] nRBC 0 0 - 0 /100 WBC 01/30/2025 8:09 AM EDT [facility] Neutrophils Absolute 782(L) 1,520 - 8,640 /uL 01/30/2025 8:09 AM EDT [facility] Lymphocytes Absolute 876 570 - 4,860 /uL 01/30/2025 8:09 AM EDT [facility] Monocytes Absolute 284 0 - 1,296 /uL 01/30/2025 8:09 AM EDT [facility] Eosinophils Absolute 44 0 - 864 /uL 01/30/2025 8:09 AM EDT [facility] Basophils Absolute 14 0 - 108 /uL 01/30/2025 8:09 AM EDT [facility] Whole Blood 01/30/2025 7:41 AM EDT 01/30/2025 8:01 AM EDT Feliciano Gomez [facility] LAB BLOOD ORDERABLES Final Resu lt [facility] [id number], [place] [facility] * (ABNORMAL) Renal Function Panel w/EGFR (01/30/2025 5:51 AM EDT) Only the most recent of3 resultswithin the time period is included. Sodium 139 133 - 146 mmol/L 01/30/2025 7:06 AM EDT [facility] Potassium 3.5 3.5 - 5.3 mmol/L 01/30/2025 7:06 AM EDT [facility] Chloride 105 98 - 110 mmol/L 01/30/2025 7:06 AM EDT [facility] CO2 26 21 - 33 mmol/L 01/30/2025 7:06 AM EDT [facility] Anion Gap 8 3 - 16 mmol/L 01/30/2025 7:06 AM EDT [facility] BUN 29(H) 7 - 25 mg/dL 01/30/2025 7:06 AM EDT [facility] Creatinine 1.14 0.60 - 1.30 mg/dL 01/30/2025 7:06 AM EDT [facility] Glucose 114(H) 70 - 100 mg/dL 01/30/2025 7:06 AM EDT [facility] Calcium 8.7 8.6 - 10.3 mg/dL 01/30/2025 7:06 AM EDT [facility] Phosphorus 5.1(H) 2.1 - 4.7 mg/dL 01/30[facility]25 [facility] Albumin 4.1 3.5 - 5.7 g/dL 01/30/2025 7:06 AM [facility] Osmolality, Calculated 295 278 - 305 mOsm/kg 01/30/2025 7:[facility] EGFR 83 01/30/2025 7:06 AM [facility] Comment:As of 2021, the [...] Am J Kidney Dis. 2020. Plasma 01/30/2025 5:5 1 AM EDT 01/30/2025 6:31 AM EDT us Carlton Hill MD LAB BLOOD ORDERABLES Final Result [facility] [address] * (ABNORMAL) CBC (01/30/2025 5:51 AM EDT) Only the most recent of4 resultswithin the time period is included. WBC 2.1(L) 3.8 - 10.8 10E3/uL 01/30/2025 6:41 AM EDT [facility] RBC 3.41(L) 4.20 - 5.80 10E6/uL 01/30/2025 6:41 AM EDT [facility] Hemoglobin 11.2(L) 13.2 - 17.1 g/dL 01/30/2025 6:41 AM EDT [facility] Hematocrit 31.9(L) 38.5 - 50.0 % 01/30/2025 6:41 AM EDT [facility] MCV 93.7 80.0 - 100.0 fL 01/30/2025 6:41 AM EDT [facility] MCH 32.9 27.0 - 33.0 pg 01/30/2025 6:41 AM EDT [facility] MCHC 35.1 32.0 - 36.0 g/dL 01/30/2025 6:41 AM EDT [facility] RDW 14.8 11.0 - 15.0 % 01/30/2025 6:41 AM EDT [facility] Platelets 95(L) 140 - 400 10E3/uL 01/30/2025 6:41 AM EDT [facility] MPV 6.4(L) 7.5 - 11.5 fL 01/30/2025 6:41 AM EDT [facility] Whole Blood 01/30/2025 5:51 AM EDT 01/30/2025 6:33 AM EDT us Carlton Hill MD LAB BLOOD ORDERABLES Final Result [facility] [address] [place], [place] [address] * CT Neck With IV [...] cavity, parapharyngeal space, and retropharyngeal space. Normal patient financial specialist space, infratemporal fossa, and buccal space. Infrahyoid [...] CT images of the neck were obtained [id number] mL of IOHEXOL 350 MG IODINE/ML INTRAVENOUS SOLUTION administeredintravenously . Sagittal and coronal 2D multiplanar reconstructions wereperformed at the scanner. COMPARISON: None available FINDINGS: Adequate diagnostic quality. Nasopharynx: Symmetric with no mass. Normal torus tubarius, fossa ofRosenmuller, and adenoid tonsillar tissue. Suprahyoid neck: Normal oropharynx, oral cavity, parapharyngeal space, andretropharyngeal space. Normal patient financial specialist space, infratemporal fossa, andbuccal space. Infrahyoid neck: [...] Church MD at 01/29/2025 2:41 PM EDT us Feliciano Gomez CNP IMG CT ORDERABLES Final Result * Sed Rate (01/29/2025 5:55 AM EDT) Sed Rate 2 0 - 15 mm/hr 01/29/2025 7:03 AM EDT [facility] Whole Blood 01/29/2025 5:55 AM EDT 01/29/2025 6:41 AM EDT us Feliciano Gomez CNP LAB BLOOD ORDERABLES Final Resu lt [facility] [address] * C-Reactive Protein (01/29/2025 5:55 AM EDT) [facility] CRP 4.1 1.0 - 10.0 mg/L 01/29/2025 7:13 AM EDT [facility] Plasma 01/29/2025 5:55 AM EDT 01/29/2025 6:41 AM EDT Feliciano Garcia [facility] LAB BLOOD ORDERABLES Final Resu lt [facility] [address] [facility]. [address] * Giardia Cryptosporidium Antigens (Feces) (01/28/2025 9:27 PM EDT) [facility] Cryptosporidium Ag Negative Negative 2024 8:03 AM EDT [facility] Giardia Ag Negative Negative 01/29/2025 8:03 AM EDT [facility] Comment: Detection of Giardia and Cryptosporidium antigen is more sensitive and specific than microscopy. Because antigens are shed continuously, repeat testing is rarely warranted. Feces 01/28/2025 9:27 PM EDT 01/28/2025 10:07 PM EDT Comment:F Ruby Chiang MD MICROBIOLOGY - GENERAL ORDERAB LES Final Result [facility] [address] [facility]. [address] * Ova and Parasite Comprehensive w/Giardia (Feces) (01/28/2025 9:27 PM EDT) [facility] O & P Method: Concentration and Trichrome Stain [facility] Results No Amoeba, Ova, Or Parasites Seen. -- O and P examination of additional specimens is recommended only for symptomatic patients, immunosuppressed patients or those with an appropriate travel history. [facility] Feces FECES / Unknown 01/28/2025 9 :27 PM EDT 01/28/2025 10:07 PM EDT Comment:F Ruby Chiang MD MICROBIOLOGY - GENERAL ORDERAB LES Final Result Performing Organization Address [facility] Co de Phone Number [facility] [address] * Clostridium Difficile Toxin A/B Antigen (01/28/2025 1:21 PM EDT) CDIFF Tox AGN Negative Negative 01/28/2025 10:35 PM EDT [facility] Comment:C. difficile nucleic acid testing [...] ORDERABL ES Final Result Performing Organization Address [facility] Co de Phone Number [facility] [address] * Phosphatidylethanol Confirmation, B (01/28/2025 7:14 AM EDT) Only the most recent of2 resultswithin the time period is included. PETH 16:0/18.1 (POPETH) 394 Cutoff: 10 ng/mL 01/30/2025 9:58 AM EDT [facility] Comment: Phosphatidylethanol (PEth) [...] PEth Interpretation Positive. 01/30 9:58 AM EDT [facility] Comment: ADDITIONAL INFORMATION This report is intended for use in clinical monitoring and management of patients. It is not intended for use in employment-related testing. This test was developed and its performance characteristics determined by [facility] in a manner consistent with CLIA requirements. This test has not been cleared or approved by the U.S. Food and Drug Administration. Test Performed by: [address] [address] School Bus Operator: Kathy Ortiz Ph.D.; CLIA# [id number] Whole Blood 01/28/2025 7:14 AM EDT 01/30/2025 9:58 AM EDT Carlton Hill MD LAB BLOOD ORDERABLES Final Result Performing Organization Address City/State/[facility] Co de Phone Number [facility] [address] [place] [address], [facility] * CT Head WO [...] Benz MD at 01/28/2025 1:39 AM EDT us Shelby Blanco MD IM CT ORDERABLES Final Result * Enteric Pathogen Panel (01/27/2025 9:30 PM EDT) Campylobacter Group (C. ecoli, C. jejuni, C. trino) Not Detected Not Detected 01/28/2025 3:11 AM EDT [facility] Salmonella species Not Detected Not Detected 01/28/2025 3:11 AM EDT [facility] Shigella species Not Detected Not Detected 01/28/2025 3:11 AM EDT [facility] Vibrio Group (Vibrio cholerae, Vibrio parahaemolyticus) Not Detected Not Detected 01/28/2025 3:11 AM EDT [facility] Yersinia enterocolitica Not Detected Not Detected 01/28/2025 3:11 AM EDT [facility] Shiga toxin 1 Not Detected Not Detected 01/28/2025 3:11 AM EDT [facility] Shiga toxin 2 Not Detected Not Detected 01/28/2025 3:11 AM EDT [facility] Norovirus Not Detected Not Detected 01/28/2025 3:11 AM EDT [facility] Rotavirus Not Detected Not Detected 01/28/2025 3:11 AM EDT [facility] Comment: The Enteric [...] ORDERABLE S Final Result Performing Organization Address City/State/[facility] Co de Phone Number [facility] [address] * Respiratory viral panel (01/27/2025 9:30 PM EDT) Adenovirus Not Detected Not Detected 01/28/2025 12:20 AM EDT [facility] Coronavirus (229E,HKU1,NL63,OC 43) Not Detected Not Detected 01/28/2025 12:20 AM EDT [facility] SARS-CoV-2 Not Detected Not Detected 01/28/2025 12:20 AM EDT [facility] Human Metapneumovirus Not Detected Not Detected 01/28/2025 12:20 AM EDT [facility] Human Rhinovirus/Enterov irus Not Detected Not Detected 01/28/2025 12:20 AM EDT [facility] Influenza A Not Detected Not Detected 01/28/2025 12:20 AM EDT [facility] Influenza A H1 Not Detected Not Detected 01/28/2025 12:20 AM EDT [facility] Influenza A/H1-2009 Not Detected Not Detected 01/28/2025 12:20 AM EDT [facility] Influenza A H3 Not Detected Not Detected 01/28/2025 12:20 AM EDT [facility] Influenza B Not Detected Not Detected 01/28/2025 12:20 AM EDT [facility] Parainfluenza 1 Not Detected Not Detected 01/28/2025 12:20 AM EDT [facility] Parainfluenza 2 Not Detected Not Detected 01/28/2025 12:20 AM EDT [facility] Parainfluenza 3 Not Detected Not Detected 01/28/2025 12:20 AM EDT [facility] Parainfluenza 4 Not Detected Not Detected 01/28/2025 12:20 AM EDT [facility] Resp. Syncycial Virus A Not Detected Not Detected 01/28/2025 12:20 AM EDT [facility] Resp. Syncycial Virus B Not Detected Not Detected 01/28/2025 12:20 AM EDT [facility] Chlamydia pneumoniae Not Detected Not Detected 01/28/2025 12:20 AM EDT [facility] Mycoplasma pneumoniae Not Detected Not Detected 01/28/2025 12:20 AM EDT [facility] Comment: The Respiratory [...] been sent to the [facility] in accordance with state requirements. For a fact sheet for healthcare providers, see https://www.fda.gov/media/652552/download. For a fact sheet for patients, see https://www.fda.gov/media/393690/download. Nasopharyngeal Swab NASOPHARYNGEAL STRUCTURE / Unknown 01/27/2025 9:30 PM EDT 01/27/2025 10:20 PM EDT Shelby Blanco MD BODY FLUIDS AND STOOLS ORDERABLE S Final Result Performing Organization Address [facility]/ZIP Co de Phone Number [facility] [address] [facility]. [address] * Lactic acid, venous, whole blood (01/27/2025 9:30 PM EDT) Pathologist [facility] Lactate, Shakeel 1.4 0.5 - 1.6 mmol/L 01/27/2025 9:42 PM EDT [facility] Blood, Venous 01/27/2025 9:3 0 PM EDT 01/27/2025 9:39 PM EDT Pamela JACOME LAB BLOOD ORDERABLES Final Res ult [facility] [address] [facility]. [address] * Histoplasma/Blastomyces Ag, EIA, U (01/27/2025 8:44 PM EDT) Pathologist [facility] Histoplasma/Blasto myces Ag Result (Urine) Not Detected Not Detected 01/31/2025 11:06 AM EDT [facility] Comment: No antigen from Histoplasma or Blastomyces detected. False negative results may occur depending on extent of disease, and/or site of infection. Repeat testing on a new specimen if clinically indicated. Histoplasma/Blasto myces Ag Value (Urine) Not Detected ng/mL 01/31/2025 11:06 AM EDT [facility] Comment: ADDITIONAL INFORMATION This test was developed and its performance characteristics determined by [facility] in a manner consistent with CLIA requirements. This test has not been cleared or approved by the U.S. Food and Drug Administration. Test Performed by: [facility] [address] [id number] School Bus Operator: Kathy Ortiz Ph.D.; CLIA# [id number] Urine URINE SPECIMEN / Unknown 01/27/2025 8:44 PM EDT 01/31/2025 11:06 AM EDT Shelby Blanco MD URINE ORDERABLES Final Result Performing Organization Address [facility]/ZIP Co de Phone Number [facility] [address] [place] [address] * Strep Pneumo-Legionella Urine Antigen (01/27/2025 8:44 PM EDT) Strept Pneumo Ag Negative Negative 01/27/2025 11:12 PM EDT [facility] Legionella Antigen Negative Negative 01/27/2025 11:12 PM EDT [facility] Urine URINE SPECIMEN / Unknown 01/27/2025 8:44 PM EDT 01/27/2025 10:21 PM EDT Narrative [facility] - 01/27/2025 11:12 PM EDT Positive indicates detection of either Streptococcus pneumoniae antigen or Legionella pneumophila serogroup 1 antigen. Negative results do not rule out pneumococcal infection or infection with L. pneumophila serogroup 1, other serogroups of L. pneumophila, or other Legionella species. Shelby Blanco MD URINE ORDERABLES Final Result Performing Organization Address [facility]/ZIP Co de Phone Number [facility] [address] [place] [address] * (ABNORMAL) Urinalysis, Microscopic (01/27/2025 8:44 PM EDT) RBC, UA <1 0 - 3 /HPF 01/27/2025 9:32 PM EDT [facility] WBC, UA 1 0 - 5 /HPF 01/27/2025 9:32 PM EDT [facility] Hyaline Casts, UA 75(H) 0 - 2 /LPF 01/27/2025 9:32 PM EDT [facility] Mucus, UA Present(A) None Seen /HPF 01/27/2025 9:32 PM EDT [facility] Urine 01/27/2025 8:44 PM EDT 01/27/2025 9:01 PM EDT us Pamela JACOME URINE ORDERABLES Final Result Performing Organization Address City/State/[facility] Co de Phone Number [facility] [address] * (ABNORMAL) Urinalysis-Macroscopic w/Rfx to Microsco (01/27/2025 8:44 PM EDT) Color, UA Yellow Yellow,Straw 01/27/2025 9:32 PM EDT [facility] Clarity, UA Clear Clear 01/27/2025 9:32 PM EDT [facility] Specific [place], UA 1.015 1.005 - 1.035 01/27/2025 9:32 PM EDT [facility] pH, UA 5.5 5.0 - 8.0 01/27/2025 9:32 PM EDT [facility] Protein, UA 30(A) Negative mg/dL 01/27/2025 9:32 PM EDT [facility] Glucose, UA Negative Negative mg/dL 01/27/2025 9:32 PM EDT [facility] Ketones, UA 20(A) Negative mg/dL 01/27/2025 9:32 PM EDT [facility] Bilirubin, UA Negative Negative 01/27/2025 9:32 PM EDT [facility] Blood, UA Negative Negative 01/27/2025 9:32 PM EDT [facility] Nitrite, UA Negative Negative 01/27/2025 9:32 PM EDT [facility] Urobilinogen, UA <2.0 0.2 - 1.9 mg/dL 01/27/2025 9:32 PM EDT [facility] Leukocyte Esterase, UA Negative Negative 01/27/2025 9:32 PM EDT [facility] Urine 01/27/2025 8:44 PM EDT 01/27/2025 8:53 PM EDT us Pamela JACOME URINE ORDERABLES Final Result Performing Organization Address [facility] Co de Phone Number [facility] [address] [facility] [place] [address], [facility] * Histoplasma/Blastomyces Ag, EIA, S (01/27/2025 8:20 PM EDT) Histoplasma/Blasto myces Ag Result (Serum) Not Detected Not Detected 01/30/2025 12:49 PM EDT [facility] Comment: No antigen from Histoplasma or Blastomyces detected. False negative results may occur depending on extent of disease, and/or site of infection. Repeat testing on a new specimen if clinically indicated. Histoplasma/Blasto myces Ag Value (Serum) Not Detected ng/mL 01/30/2025 12:49 PM EDT [facility] Comment: ADDITIONAL INFORMATION This test was developed and its performance characteristics determined by [facility] in a manner consistent with CLIA requirements. This test has not been cleared or approved by the U.S. Food and Drug Administration. Test Performed by: [facility] - [address] [address] School Bus Operator: Kathy Ortiz Ph.D.; CLIA# [id number] Serum SERUM SPECIMEN / Unknown 01/27/2025 8:20 PM EDT 01/30/2025 12:49 PM EDT Comment:S us Shelby Blanco MD LAB BLOOD ORDERABLES Final Resul t [facility] [address] [place] [address], [facility] * Fungitell (01/27/2025 8:20 PM EDT) Fungitell Value <31.25 pg/mL 4:19 PM EDT [facility] Reference Value Comment 4:19 PM EDT [facility] Comment:Negative: <60, Posit bradley: >/=60 Clinical Relevance Notes 2024 4:19 PM EDT [facility] Comment: The Fungitell test is [...] Cryptococcus, which produce very low levels of (1,3)-ztxw-U-lyltqh. This test will not detect the zygomycetes, such as Absidia, Blastomyces, Mucor, and Rhizopus, which are not known to produce (1,3)-euvx-V-axzymj. In addition, the yeast phase of Blastomyces dermatitidis produces little (1,3)-yala-D-cxzwzc and may not be detected by the assay. Disclaimer: Notes 02/02/2025 4:19 PM EDT [facility] Comment: This test has been cleared or approved for diagnostic use by the U.S. Food and Drug Administration. Performance characteristics were verified by [employer]. Electronically signed by: Comment 02/02/2025 4:19 PM EDT [facility] Comment:Usha Landin Fungitell Result Comment 02/03/20 4:19 PM EDT [facility] Comment:Negative Interpretation Notes 02/02/2025 4:19 PM EDT [facility] Comment: (1,3) Rxfh-W-Ckzsah was NOT DETECTED in the sample. Reasons for negative results could include the patient being in the early stage of infection before detectable levels of (1,3) Abdx-C-Ouokfw are present. Clinical diagnosis should be made in the context of the patient's complete medical history. Serum 01/27/2025 8:20 PM EDT 02/02/2025 5:07 PM EDT Narrative [facility] - 02/02/2025 5:07 PM EDT PERFORMED AT: [facility] [address] [place] [id number] CYBER FORENSIC SPECIALIST: Cyril Porter, PhD PHONE: [phone] Shelby Blanco MD LAB BLOOD ORDERABLES Final Resul t Performing Organization Address City/[facility] Co de Phone Number [facility] [address] [facility]. [address] * Cryptococcus Ag (01/27/2025 8:20 PM EDT) Crypto Ag, Ser Negative Negative 01/27/2025 11:41 PM EDT [facility] Crypto Ag Titer, Ser Not Applicable 01/27/2025 11:41 PM EDT [facility] Serum SERUM SPECIMEN / Unknown 01/27/2025 8:20 PM EDT 01/27/2025 10:04 PM EDT Comment:S Shelby Blanco MD LAB BLOOD ORDERABLES Final Resul t Performing Organization Address [facility] Co de Phone Number [facility] [address] [facility]. [address] * BK PCR, Blood (Renal Txp and BMT only) (01/27/2025 8:20 PM EDT) BKV IU DNA Quant, Blood Not Detected IU/mL 01/29/2025 1:48 PM EDT [facility] Comment: Beginning August 23, 2021, [facility] has transitioned BK viral load testing [...] log 10 IU/mL 01/29/2025 1:48 PM EDT [facility] Comment:BKV DNA Not Detected Plasma 01/27/2025 8:20 PM EDT 01/27/2025 9:49 PM EDT Shelby Blanco MD LAB BLOOD ORDERABLES Final Resul t [facility] [address] * Katie-Schafer Virus (EBV) PCR (01/27/2025 8:20 PM EDT) EBV DNA, Quantitative PCR Not Detected IU/mL 01/28/2025 10:54 AM EDT [facility] EBV DNA, Log10 See Note log 10 IU/mL 01/28/2025 10:54 AM EDT [facility] Comment: Beginning September 05, 2022, [facility] has transitioned EBV viral load testing [...] ORDERABLES Final Resul t Performing Organization Address [facility]/ZIP Co de Phone Number [facility] [address] [facility]. [address] * Adenovirus PCR (01/27/2025 8:20 PM EDT) Adenovirus, Quantitative PCR 0 0 - 0 copies/mL 02/03/2025 1:12 PM EDT [facility] Comment: Testing performed by [facility], [address] [place] [address], [place], [place]. This test(s) was developed and its performance characteristics determined and validated by the Department of Pathology and Laboratory Medicine at [facility]. It has not been cleared or approved [...] ORDERABLES Final Resul t Performing Organization Address [facility] Co de Phone Number [facility] [address] [facility]. [address] * Aspergillus Ag (01/27/2025 8:20 PM EDT) Pathologist [facility] Aspergillus Ag. 0.03 0.00 - 0.49 Index 01/30/2025 5:54 PM EDT [facility] Serum SERUM SPECIMEN / Unknown 01/27/2025 8:20 PM EDT 01/31/2025 4:23 AM EDT Comment:S Shelby Blanco MD BODY FLUIDS AND STOOLS ORDERABLE S Final Result Performing Organization Address City/[facility]/ZIP Co de Phone Number [facility] [address] [place] [address]. [address] * Blood culture-Peripheral (Blood) (01/27/2025 8:20 PM EDT) Only the most recent of2 resultswithin the time period is included. Culture Result No Growth After 5 Days [facility] Blood BLOOD SPECIMEN / Unknown 01/27/2025 8:20 PM EDT 01/27/2025 9:57 PM EDT Pamela JACOME MICROBIOLOGY - GENERAL ORDERAB LES Final Result [facility] [address] [facility]. [address] * Fungus culture, blood (Blood) (01/27/2025 8:20 PM EDT) Culture Result No Fungus Isolated At 4 Weeks [facility] Blood SERUM SPECIMEN / Unknown 01/27/2025 8:20 PM EDT 01/27/2025 9:50 PM EDT Comment:S Shelby Blanco MD MICROBIOLOGY - GENERAL ORDERABLE S Final Result Performing Organization Address [facility]/ZIP Co de Phone Number [facility] [address] [place] [address]. [address] * (ABNORMAL) Lipase (01/27/2025 8:20 PM EDT) Lipase 3(L) 4 - 82 U/L 01/27/2025 9:0 3 PM EDT [facility] Plasma 01/27/2025 8:20 PM EDT 01/27/2025 8:34 PM EDT Pamela JACOME LAB BLOOD ORDERABLES Final Res ult Performing Organization Address City/[facility]/ZIP Co de Phone Number [facility] [address] [facility]. [address] * Hemoglobin A1c (01/27/2025 8:20 PM EDT) Hemoglobin A1C 4.0 4.0 - 5.6 % 01/27/2025 11:49 PM EDT [facility] Comment: Hemoglobin A1c [...] PM EDT 01/27/2025 8:57 PM EDT Narrative [facility] - 01/27/2025 11:49 PM EDT A1C project?->Yes us Pamela JACOME LAB BLOOD ORDERABLES Final Res ult [facility] [address] [facility] [place] [address], [facility] * Basic metabolic panel (01/27/2025 8:20 PM EDT) Sodium 136 133 - 146 mmol/L 01/27/2025 9:03 PM EDT [facility] Potassium 4.0 3.5 - 5.3 mmol/L 01/27/2025 9:03 PM EDT [facility] Chloride 100 98 - 110 mmol/L 01/27/2025 9:03 PM EDT [facility] CO2 25 21 - 33 mmol/L 01/27/2025 9:03 PM EDT [facility] Anion Gap 11 3 - 16 mmol/L 01/27/2025 9:03 PM EDT [facility] BUN 16 7 - 25 mg/dL 01/27/2025 9:03 PM EDT [facility] Creatinine 1.02 0.60 - 1.30 mg/dL 01/27/2025 9:03 PM EDT [facility] Glucose 93 70 - 100 mg/dL 01/27/2025 9:03 PM EDT [facility] Calcium 9.7 8.6 - 10.3 mg/dL 01/27/2025 9:03 PM EDT [facility] Osmolality, Calculated 283 278 - 305 mOsm/kg 01/27/2025 9:03 PM EDT [facility] EGFR >90 01/27/2025 9:03 PM EDT [facility] Comment: As of 2021, the [...] JACOME LAB BLOOD ORDERABLES Final Res ult [facility] [address] * X-ray Chest PA and Lateral (01/27/2025 [...] 9:53 AM EDT) Only the most recent of2 resultswithin the time period is included. Pathologist [facility] INR 0.94 0.9 - 1.1 Protime 10.5 Plasma Harvey Domínguez III, MD LAB BLOOD ORDERABLE S Final Result * HIV-1 RNA, Quantitative, PCR (11/25/2024 8:42 AM EDT) Pathologist [facility] HIV 1 Copies Not Detected copies/mL 11/26/2024 10:57 AM EDT [facility] Comment:Test methodology for HIV-1 RNA quantification is an FDA-approved nucleic acid amplification assay. The Lower Limit of Quantitation (LLoQ) is 20 copies/mL. The linear range is 20- to 10,000,000 copies/mL. The Limit of Detection (LoD) is 13.2 copies/mL. The reference range is Not Detected. HIV [id number] See Note [id number] /mL 11/26/2024 10:57 AM EDT [facility] Comment:HIV-1 RNA not detect ed. Plasma 11/25/2024 8:42 AM EDT 11/25/2024 10:59 AM EDT Narrative [facility] - 11/26/2024 10:57 AM EDT One time lab order to be collected with next set of standing liver transplant labs. UNOS requirement. Please fax all results to [phone]. Call critical results to [phone]. us Harvey Domínguez III, MD LAB BLOOD ORDERABLE S Final Result Performing Organization Address [facility]/ZIP Co de Phone Number [facility] [address] [facility]. [address] * Hepatitis C Antibody (10/25/2024 10:17 PM EDT) HCV Ab Nonreactive Nonreactive 10/25/2024 11:16 PM EDT [facility] Comment:Health Department no tified in accordance with reportable infectious disease guidelines. Serum 10/25/2024 10:1 7 PM EDT 10/25/2024 10:17 PM EDT Narrative [facility] - 10/25/2024 11:16 PM EDT Antibodies to HCV not detected; does not exclude the possibility of exposure to HCV. us Aysha Gill MD LAB BLOOD ORDERABLES F inal Result [facility] [address] [facility]. [address] * TSH (Thyroid Stimulating Hormone) (10/07/2024 6:37 PM EDT) TSH 0.81 0.45 - 4.12 uIU/mL 10/07/2024 8:17 PM EDT [facility] Serum 10/07/2024 6:37 PM EDT 10/07/2024 6:50 PM EDT us Gerri Peterson MD LAB BLOOD ORDERABLES Final Resu lt [facility] [address] [place] [address], [facility] from Last 3 Months or Most Recently Relevant to Health Maintenance Additional Health Concerns Infection Onset Date Last Indicated C. difficile 01/28/2025 01/28/2025 Insurance [facility] [facility] [employer] TR[employer]PLANT GLOBAL Member Subscriber Plan / Payer (Ef fective 2024-2025) Name:Julien Anderson Relation to Subscriber:Self Name:Julien Anderson Payer ID:[id number] Group ID:Not on file Type:Transplant Address: [address] [place] [address] Advance Directives For more information, please contact: [phone] * Full Code (Latest Code Status on [...] 9:42 AM 09/09/2024 10:30 PM Care Teams Ice Cream Dispenser Relationship Specialty Start Date End Date Enedina Mcguire NP [address] [place] [address] PCP - General Internal Medicine 10/05/24 Maureen Pantoja, ЮЛИЯ Txp Post Coordinator Transplant Hepatology 10/28/24 Chris Orosco MD [address] [place] [address] [address] [place] [address] Consulting Physician Transplant Hepatology 02/26/25
--- OUTSIDE RECORDS SUMMARY | 2025-03-10 09:39 | XMS_ITS | Encounter Summary ---
Author Organization [facility] Address [address] [place] [address] Care Team Providers Care Operations Technician Name Role Phone Enedina Mcguire NP Primary Care Provider + [phone] Maureen Pantoja RN Unavailable Unavail able Chris Orosco MD Unavailable [phone] Source Comments This information has been disclosed [...] release of HIV test results or diagnoses. [id number] Encounter Details Date Type Department Care Team (Late st Contact Info) Description 02/23/2025 Chart Note [facility] Liver Transplant at [address] [address] Marlene Ro MA 02/18 Labs entered from [facility] Social History Tobacco Use Types [...] were not included. 02/18 Labs entered from [facility] Pet Pending documented in this encounter Plan [...] (ABNORMAL) Magnesium (02/18/2025 10:34 AM EDT) Pathologist [facility] Magnesium 1.4(A) 1.6 - 2.4 mg/dL Plasma Narrative Resulting Agency Comment [facility] Result [facility] LAB BLOOD ORDERABLES Denisse l Result * (ABNORMAL) Renal Function Panel w/o EGFR (02/18/2025 10:34 AM EDT) Glucose 84 BUN 24 CO2 31(A) 13 - 22 mmol/L Creatinine 1.10 Potassium 4.3 Sodium 140 Chloride 99 Phosphorus 4.9 2.5 - 4.9 mg/dL Calcium 9.1 EGFR 74 mg/dL Albumin 4.4 3.5 - 5.0 g/dL Blood Narrative Resulting Agency Comment [facility] Result [facility] LAB BLOOD ORDERABLES Denisse l Result * Tacrolimus level (02/18/2025 10:34 AM EDT) [facility] Tacrolimus Lvl 10.7 6 - 15 ng/mL Whole Blood Narrative Resulting Agency Comment [facility] Result [facility] LAB BLOOD ORDERABLES Denisse l Result * Creatinine, urine, random (02/18/2025 10:34 AM EDT) [facility] Creatinine, Urine 54 Urine Narrative Resulting Agency Comment [facility] Result [facility] URINE ORDERABLES Final Re sult * Urinalysis w/Rfl to Microscopic (02/18/2025 10:34 AM EDT) Pathologist [facility] Glucose, UA Negative Negative Ketones, UA Negative Negative Blood, UA Negative Negative Bilirubin, UA Negative Negative Urobilinogen, UA Normal Normal Protein, UA Negative Negative pH, UA 5.5 4.5 - 8.0 Specific [place], UA 1.015 1.005 - 1.030 Clarity, UA Clear Clear Color, UA Yellow Light Yellow, Yellow Urine Narrative Resulting Agency Comment [facility] Result [facility] Historical Provider URINE ORDERABLES [...] 4.9 10^3/mL Blood Narrative Resulting Agency Comment [facility] Result [facility] Historical Provider LAB BLOOD ORDERABLES Denisse l Result * Urine Protein, Tot, Random (w/o Creat) (02/18/2025 10:34 AM EDT) Total Protein, Ur 22.0 Urine Narrative Resulting Agency Comment [facility] Result [facility] Historical Provider URINE ORDERABLES Final Re sult * Hepatic Function Panel (02/18/2025 10:34 AM EDT) Bilirubin, Direct 0.0 Bilirubin, Indirect 0.5 Alkaline Phosphatase 85 ALT 19 AST 24 Total Bilirubin 0.5 Total Protein 7.1 Plasma Narrative Resulting Agency Comment [facility] us Historical Provider LAB BLOOD ORDERABLES Denisse l Result documented in this encounter Visit Diagnoses Not on filedocumented in this encounter Additional Health Concerns Infection Onset Date Last Indicated Resolved Time C. difficile 01/28/2025 01/28/2025 Assessment Noted Time PHQ-9 Depression Total Score: 2 12/11/19 25 9:00 AM EDT documented as of this encounter Care Teams Operations Technician Relationship Specialty Start Date End Date Enedina Mcguire NP [address] [place] [address] PCP - General Internal Medicine 10/05/24 Maureen Pantoja RN Txp Post Coordinator Transplant Hepatology 10/28/24 Chris Orosco MD [address] [place] [address] [address] [place] [address] Consulting Physician Transplant Hepatology 02/26/25 documented as of this encounter
--- OUTSIDE RECORDS SUMMARY | 2025-03-10 09:39 | XMS_ITS | Encounter Summary ---
Author Organization [facility] Address [address] [place] [address] Care Team Providers Care Oracle Dba Name Role Phone Enedina Mcguire NP Primary Care Provider [phone] Maureen Pantoja RN Unavailable Unavail able Source [...] release of HIV test results or diagnoses. [id number] Reason for Visit * Reason Comments Medication Refill Encounter Details Date Type Department Care Team (Late st Contact Info) Description 12/21/[address] [facility] Liver Transplant at [address] [address] Lydia Sanchez MD [address] [place] [address] Liver/[place] [address] Encounter for therapeutic drug monitoring; S/P liver transplant ([facility]); Hypomagnesemia; Kidney transplant recipient; Hypertension, unspecified [...] therapeutic drug monitoring S/P liver transplant ([facility]) Hypomagnesemia Disorders of magnesium metabolism Kidney [...] as of this encounter Care Teams Oracle Dba Relationship Specialty Start Date End Date Enedina Mcguire NP [address] [place] [address] PCP - General Internal Medicine 10/05/24 Maureen Pantoja, RN Txp Post Coordinator Transplant Hepatology 10/28/24 documented as of this encounter
--- OUTSIDE RECORDS SUMMARY | 2025-03-10 09:39 | XMS_ITS | Encounter Summary ---
Author Organization [facility] Address [address] [place] [address] Care Team Providers Care It Senior Analyst Name Role Phone Enedina Mcguire NP Primary Care Provider + [phone] Maureen Pantoja RN Unavailable Unavail able Source [...] release of HIV test results or diagnoses. [id number] Reason for Visit * Reason Comments Results Encounter Details Date Type Department Care Team (Riky st Contact Info) Description 01/16/2025 Telephone [facility] Liver Transplant at [address] [address] Maureen Pantoja, RN Results Social [...] In the past 12 months has e [employer], gas, oil, or water [employer] threatened to shut off services in your [...] of this encounter Care Teams It Senior Analyst Relationship Specialty Start Date End Date Enedina Mcguire NP [address] [place] [address] PCP - General Internal Medicine 10/05/24 Maureen Pantoja, ЮЛИЯ Txp Post Coordinator Transplant Hepatology 10/28/24 documented as of this encounter
--- OUTSIDE RECORDS SUMMARY | 2025-03-10 09:39 | XMS_ITS | Encounter Summary ---
Author Organization [facility] Address [address] [place] [address] Care Team Providers Care Accordion Tuner Name Role Phone Enedina Mcguire NP Primary Care Provider [phone] Maureen Pantoja RN Unavailable Unavail able Source [...] release of HIV test results or diagnoses. [id number] Reason for Visit * Reason Comments Results Encounter Details Date Type Department Care Team (Riky st Contact Info) Description 02/03/2025 Telephone [facility] Liver Transplant at [address] [address] Mitzy Gill MA Results Social [...] Recorded In the past 12 months has [employer], gas, oil, or water company threatened to [...] in a nursing home (including now)? No 01/28/2025 Yearly Questionnaire [...] EDT Patient ended up being admitted to [facility] (01/27/25-01/30/25) after these tests were ordered but beforehe went to his local lab. Patient tested positive for C.diff at [facility] on 01/28/25. He is currently on Dificid 200 mg BID until 02/06/25. Patient tested negative for Norovirus at [facility] on 01/27/25. Patient's MMF is currently on hold. Will route results to Alp Provider for further review. * Mitzy Gill MA - 02/03/2025 3:23 PM EDT Armida from [facility] called to report critical value for [...] documented as of this encounter Care Teams Accordion Tuner Relationship Specialty Start Date End Date Enedina Mcguire NP [address] [place] [address] PCP - General Internal Medicine 10/05/24 Maureen Pantoja, RN Txp Post Coordinator Transplant Hepatology 10/28/24 documented as of this encounter
--- OUTSIDE RECORDS SUMMARY | 2025-03-10 09:39 | XMS_ITS | Encounter Summary ---
Author Organization [facility] Address [facility] [place] [address] Care Team Providers Care Glass Curvature Gauger Name Role Phone nEedina Mcguire NP Primary Care Provider + [phone] Maureen Pantoja RN Unavailable Unavail able Source [...] release of HIV test results or diagnoses. [id number] Health Encounter Details Date Type Department Care [...] Recorded In the past 12 months has [employer], [employer], oil, or water [employer] threatened to shut off services in your [...] as of this encounter Care Teams Glass Curvature Gauger Relationship Specialty Start Date End Date Enedina Mcguire NP [address] [place] [address] PCP - General Internal Medicine 10/05/24 Maureen Pantoja, ЮЛИЯ Txp Post Coordinator Transplant Hepatology 10/28/24 documented as of this encounter
--- OUTSIDE RECORDS SUMMARY | 2025-03-10 09:39 | XMS_ITS | Encounter Summary ---
Author Organization [facility] Address [address] [place] [address] Care Team Providers Care Brazer Furnace Name Role Phone Enedina Mcguire NP Primary Care Provider + [phone] Maureen Pantoja RN Unavailable Unavail able Source [...] release of HIV test results or diagnoses. [id number] Health Encounter Details Date Type Department Care Team (Late st Contact Info) Description 02/03/2025 Telephone [facility] Liver Transplant at [address] [address] Marlene Ro MA Social [...] Recorded In the past 12 months has [employer], gas, oil, or water [employer] threatened to shut off services in your [...] documented as of this encounter Care Teams Brazer Furnace Relationship Specialty Start Date End Date Enedina Mcguire NP [address] [place] [address] PCP - General Internal Medicine 10/05/24 Maureen Pantoja, RN Txp Post Coordinator Transplant Hepatology 10/28/24 documented as of this encounter
--- OUTSIDE RECORDS SUMMARY | 2025-03-10 09:39 | XMS_ITS | Encounter Summary ---
Author Organization [facility] Address [address] [place] [address] Care Team Providers Care Assistant Professor Of Communication Name Role Phone Enedina Mcguire NP Primary Care Provider + [phone] Maureen Pantoja RN Unavailable Unavail able Source [...] release of HIV test results or diagnoses. [id number] Health Encounter Details Date Type Department Care Team (Late st Contact Info) Description 02/04/2025 Telephone [facility] Liver Transplant at [address] [address] Marlene Ro MA Social History [...] Recorded In the past 12 months has [employer], gas, oil, or water [employer] threatened to shut off services in your [...] in a skilled nursing (including now)? No 01/28/2025 Yearly Questionnaire Answer [...] this encounter Care Teams Assistant Professor Of Communication Relationship Specialty Start Date End Date Enedina Mcguire NP [address] [place] [address] PCP - General Internal Medicine 10/05/24 Maureen Pantoja, ЮЛИЯ Txp Post Coordinator Transplant Hepatology 10/28/24 documented as of this encounter
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
--- OUTSIDE RECORDS SUMMARY | 2025-03-10 09:39 | XMS_ITS | Encounter Summary ---
Author Organization [facility] Address [address] [place] [address] Care Team Providers Care Lead Cytogenetic Technologist Name Role Phone Enedina Mcguire NP Primary Care Provider + [phone] Maureen Pantoja RN Unavailable Unavail able Source [...] release of HIV test results or diagnoses. [id number] Reason for Visit * Reason Comments Results Encounter Details Date Type Department Care Team (Riky mcdaniel Contact Info) Description 02/13/2025 Telephone [place] Liver Transplant at [address] [address] Marisela Martinez MA Results Social [...] In the past 12 months has e [employer], gas, oil, or water [employer] threatened to shut off services in your [...] after discussionwith transplant ID and transplant nephrology. [employer] message sent to patient. * Mariola Quintana RN - 02/13/2025 9:09 AM EDT Covering RN Coordinator aware. Will route to Txp Provider for further review and recommendations. * Marisela Martinez MA - 02/13/2025 8:38 AM EDT Ashley from [facility] outpt lab called to report a critical [...] as of this encounter Care Teams Lead Cytogenetic Technologist Relationship Specialty Start Date End Date Enedina Mcguire NP [address] [place] [address] PCP - General Internal Medicine 10/05/24 Maureen Pantoja, ЮЛИЯ Txp Post Coordinator Transplant Hepatology 10/28/24 documented as of this encounter
--- OUTSIDE RECORDS SUMMARY | 2025-03-10 09:39 | XMS_ITS | Encounter Summary ---
Author Organization [facility] Address [address] [place] [address] Care Team Providers Care Licensed Life And Health Agent Name Role Phone Enedina Mcguire NP Primary Care Provider [phone] Maureen Pantoja RN Unavailable Unavail able Source [...] release of HIV test results or diagnoses. [id number] Reason for Visit * Reason Comments Medication Refill Encounter Details Date Type Department Care Team (Late st Contact Info) Description 01/17/2025 Refill [facility] Liver Transplant at [address] [address] Harvey Domínguez III, MD [address] [place] [address] Encounter for therapeutic drug monitoring; S/P liver transplant ([facility]); Hypomagnesemia; Kidney transplant recipient; Hypertension, [...] as of this encounter Care Teams Licensed Life And Health Agent Relationship Specialty Start Date End Date Enedina Mcguire NP [address] [place] [address] PCP - General Internal Medicine 10/05/24 Maureen Pantoja, RN Txp Post Coordinator Transplant Hepatology 10/28/24 documented as of this encounter
--- OUTSIDE RECORDS SUMMARY | 2025-03-10 09:39 | XMS_ITS | Encounter Summary ---
Author Organization [facility] Address [address] [place] [address] Care Team Providers Care Program Assistant Name Role Phone Enedina Mcguire NP Primary Care Provider + [phone] Maureen Pantoja RN Unavailable Unavail able Source [...] release of HIV test results or diagnoses. [id number] Health Encounter Details Date Type Department Care Team (Late st Contact Info) Description 02/17/2025 Telephone [facility] Liver Transplant at [address] [address] Marlene Ro MA Social History [...] Recorded In the past 12 months has [employer], gas, oil, or water [employer] threatened to shut off services [...] as of this encounter Care Teams Program Assistant Relationship Specialty Start Date End Date Enedina Mcguire NP [address] [place] [address] PCP - General Internal Medicine 10/05/24 Maureen Pantoja, ЮЛИЯ Txp Post Coordinator Transplant Hepatology 10/28/24 documented as of this encounter
--- OUTSIDE RECORDS SUMMARY | 2025-03-10 09:39 | XMS_ITS | Encounter Summary ---
Author Organization [facility] Address [address] [place] [address] Care Team Providers Care Defensive Secondary Coach Name Role Phone Enedina Mcguire NP Primary Care Provider [phone] Maureen Pantoja RN Unavailable Unavail able Source [...] release of HIV test results or diagnoses. [id number] Reason for Visit * Reason Comments Medication Refill Encounter Details Date Type Department Care Team (Late st Contact Info) Description 02/08/2025 Refill [facility] Liver Transplant at [address] [address] Harvey Domínguez III, MD [address] [place] [address] Social History Tobacco Use Types Packs/Day Years Used Date Smoking Tobacco: Former Cigarettes Smokeless Tobacco: Current Alcohol Use Standard Drinks/Week Comments Yes 0 (1 standard drink = 0.6 oz pure alcohol) History of alcohol abuse, reports no use in 3 week- typically endorses use as 4 glasses of wine a days Utilities Answer Date Recorded In the past 12 months has [employer], gas, oil, or water [email or web address] threatened to shut off services in your [...] documented as of this encounter Care Teams Defensive Secondary Coach Relationship Specialty Start Date End Date Enedina Mcguire NP [address] [place] [address] PCP - General Internal Medicine 10/05/24 Maureen Pantoja, ЮЛИЯ Txp Post Coordinator Transplant Hepatology 10/28/24 documented as of this encounter
--- OUTSIDE RECORDS SUMMARY | 2025-03-10 09:39 | XMS_ITS | Encounter Summary ---
Author Organization [facility] Address [address] [place] [address] Care Team Providers Care Analyzer Sales Name Role Phone Enedina Mcguire NP Primary Care Provider + [phone] Maureen Pantoja RN Unavailable Unavail able Source [...] release of HIV test results or diagnoses. [id number] Health Encounter Details Date Type Department Care Team (Late st Contact Info) Description 01/15/2025 Telephone [facility] Liver Transplant at [address] [address] Kaylin Willard MSW Social History [...] Recorded In the past 12 months has [employer], gas, oil, or water [employer] threatened to shut off services in your [...] continue to utilize these supports. NUBIA Barros, [facility] Transplant Financial Solutions Advisor documented in this encounter Plan of Treatment [...] documented as of this encounter Care Teams Analyzer Sales Relationship Specialty Start Date End Date Enedina Mcguire NP [address] [place] [address] PCP - General Internal Medicine 10/05/24 Maureen Pantoja, RN Txp Post Coordinator Transplant Hepatology 10/28/24 documented as of this encounter
--- OUTSIDE RECORDS SUMMARY | 2025-03-10 09:39 | XMS_ITS | Encounter Summary ---
Author Organization [facility] Address [address] [place] [address] Care Team Providers Care Concrete Engineer Name Role Phone Enedina Mcguire NP Primary Care Provider + [phone] Maureen Pantoja RN Unavailable Unavail able Source [...] release of HIV test results or diagnoses. [id number] Health Encounter Details Date Type Department Care Team (Late st Contact Info) Description 01/15/2025 Chart Note [facility] Liver Transplant at [address] [place] [phone] Marlene Ro MA 01/14 Labs entered from [facility] Social History Tobacco Use Types Packs/Day Years Used Date Smoking Tobacco: Former Cigarettes Smokeless Tobacco: Current Alcohol Use Standard Drinks/Week Comments Yes 0 (1 standard drink = 0.6 oz pure alcohol) History of alcohol abuse, reports no use in 3 week- typically endorses use as 4 glasses of wine a days Utilities Answer Date Recorded In the past 12 months has [employer], gas, oil, or water [employer] threatened to shut off services in your [...] were not included. 01/14 Labs entered from [facility] documented in this encounter Plan of Treatment [...] Tacrolimus level (01/14/2025 10:53 AM EDT) Pathologist [facility] Tacrolimus Lvl 9.6 6 - 15 ng/mL Whole Blood Result [facility] Provider LAB BLOOD ORDERABLES Denisse l Result * (ABNORMAL) Magnesium (01/14/2025 10:53 AM EDT) [facility] Magnesium 1.2(A) 1.6 - 2.4 mg/dL Plasma Narrative Resulting Agency Comment [facility] Result [facility] LAB BLOOD ORDERABLES Denisse l Result * Renal Function Panel w/o EGFR (01/14/2025 10:53 AM EDT) [facility] Glucose 94 BUN 19 CO2 21 13 - 22 mmol/L Creatinine 1.00 Potassium 4.4 Sodium 140 Chloride 109 Phosphorus 4.8 2.5 - 4.9 mg/dL Calcium 9.5 EGFR 82 mg/dL Albumin 4.8 3.5 - 5.0 g/dL Blood Narrative Resulting Agency Comment [facility] Result [facility] LAB BLOOD ORDERABLES Denisse l Result * Creatinine, urine, random (01/14/2025 10:53 AM EDT) [facility] Creatinine, Urine 90 Urine Narrative Resulting Agency Comment [facility] Result [facility] Provider URINE ORDERABLES Final Re sult * Urinalysis w/Rfl to Microscopic (01/14/2025 10:53 AM EDT) [facility] Glucose, UA Negative Negative Ketones, UA Negative Negative Blood, UA Negative Negative Bilirubin, UA Negative Negative Urobilinogen, UA Normal Normal Protein, UA Negative Negative Nitrite, UA Negative Negative pH, UA 5.5 4.5 - 8.0 Specific [place], UA 1.020 1.005 - 1.030 Clarity, UA Clear Clear Color, UA Yellow Light Yellow, Yellow Urine Narrative Resulting Agency Comment [facility] Result [facility] [...] 2.0 10^3/mL Blood Narrative Resulting Agency Comment [facility] Result [facility] LAB BLOOD ORDERABLES Denisse l Result * Urine Protein, Tot, Random (w/o Creat) (01/14/2025 10:53 AM EDT) Total Protein, Ur 13.0 Urine Narrative Resulting Agency Comment [facility] Result [facility] Provider URINE ORDERABLES Final Re sult * Hepatic Function Panel (01/14/2025 10:53 AM EDT) Bilirubin, Direct 0.2 Bilirubin, Indirect 0.5 Alkaline Phosphatase 49 ALT 15 AST 24 Total Bilirubin 0.7 Total Protein 6.8 Plasma Narrative Resulting Agency Comment [facility] Result [facility] [...] as of this encounter Care Teams Concrete Engineer Relationship Specialty Start Date End Date Enedina Mcguire NP [address] [place] [address] PCP - General Internal Medicine 10/05/24 Maureen Pantoja, ЮЛИЯ Txp Post Coordinator Transplant Hepatology 10/28/24 documented as of this encounter
--- OUTSIDE RECORDS SUMMARY | 2025-03-10 09:39 | XMS_ITS | Encounter Summary ---
Author Organization [facility] Address [address] [place] [address] Care Team Providers Care Cash Applications Analyst Name Role Phone Enedina Mcguire NP Primary Care Provider + [phone] Maureen Pantoja RN Unavailable Unavail able Source [...] release of HIV test results or diagnoses. [id number] Health Encounter Details Date Type Department Care Team (Late st Contact Info) Description 01/14/2025 Telephone [facility] Liver Transplant at [address] [phone] Marlene Ro MA Social History [...] Recorded In the past 12 months has [employer], gas, oil, or water [employer] threatened to shut off services in your [...] documented as of this encounter Care Teams Cash Applications Analyst Relationship Specialty Start Date End Date Enedina Mcguire NP [address] [place] [address] PCP - General Internal Medicine 10/05/24 Maureen Pantoja, ЮЛИЯ Txp Post Coordinator Transplant Hepatology 10/28/24 documented as of this encounter
--- OUTSIDE RECORDS SUMMARY | 2025-03-10 09:39 | XMS_ITS | Encounter Summary ---
Author Organization [facility] Address [address] [place] [address] Care Team Providers Care Payroll Tax Specialist Name Role Phone Enedina Mcguire NP Primary Care Provider + [phone] Maureen Pantoja RN Unavailable Unavail able Source [...] release of HIV test results or diagnoses. [id number] Health Encounter Details Date Type Department Care Team (Late st Contact Info) Description 02/23/2025 Telephone [facility] Liver Transplant at [address] [place] [address] [phone] Marlene Ro MA Social History [...] Recorded In the past 12 months has [employer], gas, oil, or water [employer] threatened to shut off services in your [...] as of this encounter Care Teams Payroll Tax Specialist Relationship Specialty Start Date End Date Enedina Mcguire NP [address] [place] [address] PCP - General Internal Medicine 10/05/24 Maureen Pantoja, ЮЛИЯ Txp Post Coordinator Transplant Hepatology 10/28/24 documented as of this encounter
--- OUTSIDE RECORDS SUMMARY | 2025-03-10 09:39 | XMS_ITS | Encounter Summary ---
Author Organization [facility] Address [address] [place] [address] Care Team Providers Care Artificial Breeding Distributor Name Role Phone Enedina Mcguire NP Primary Care Provider + [phone] Maureen Pantoja RN Unavailable Unavail able Source [...] release of HIV test results or diagnoses. [id number] Reason for Visit * Reason Comments Critical Lab Results Encounter Details Date Type Department Care Team (Late st Contact Info) Description 01/19/2025 Telephone [facility] Liver Transplant at [address] [place] [phone] Gladis Chisholm MA Critical Lab Results [...] In the past 12 months has [employer], gas, oil, or water [employer] threatened to shut off services in your [...] Chisholm MA - 01/19/2025 9:17 AM EDT [facility] lab called to report: Urine culture [...] documented as of this encounter Care Teams Artificial Breeding Distributor Relationship Specialty [place] [address] [place], [place] [id number] PCP - General Internal Medicine 10/05/24 Maureen Pantoja, RN Txp Post Coordinator Transplant Hepatology 10/28/24 documented as of this encounter
--- OUTSIDE RECORDS SUMMARY | 2025-03-10 09:39 | XMS_ITS | Encounter Summary ---
Author Organization [facility] Address [address] [place] [address] Care Team Providers Care Compensation Expert Name Role Phone Enedina Mcguire NP Primary Care Provider + [phone] Maureen Pantoja RN Unavailable Unavail able Source [...] release of HIV test results or diagnoses. [id number] Health Encounter Details Date Type Department Care Team (Late st Contact Info) Description 02/03/2025 Chart Note [facility] Liver Transplant at [address] [place] [phone] Marlene Ro MA 02/03 Labs entered from [facility] Social History Tobacco Use Types Packs/Day Years Used Date Smoking Tobacco: Former Cigarettes Smokeless Tobacco: Current Alcohol Use Standard Drinks/Week Comments Yes 0 (1 standard drink = 0.6 oz pure alcohol) History of alcohol abuse, reports no use in 3 week- typically endorses use as 4 glasses of wine a days Utilities Answer Date Recorded In the past 12 months has [employer], gas, oil, or water [employer] threatened to shut off services in your [...] were not included. 02/03 Labs entered from [facility] documented in this encounter Plan of [...] Positive Norovirus Detected FECES / Unknown Result [facility] Provider BODY FLUIDS AND STOOLS OR DERABLES Edited Result - Final * Phatidylethanol (PEth) (02/03/2025 9:39 AM EDT) Phosphatidylethanol (PEth) Positive 312 Whole Blood Result [facility] LAB BLOOD ORDERABLES Denisse l Result * Tacrolimus level (02/03/2025 9:39 AM EDT) Tacrolimus Lvl 7.0 6 - 15 ng/mL Whole Blood Narrative Resulting Agency Comment [facility] Result [facility] LAB BLOOD ORDERABLES Denisse l Result * Cytomegalovirus DNA, Quant, RT PCR (02/03/2025 9:39 AM EDT) CMV Quant DNA PCR (Plasma) Negative Plasma Narrative Resulting Agency Comment [facility] Result [facility] LAB BLOOD ORDERABLES Denisse l Result * BK Virus Quantitative by PCR, Blood (02/03/2025 9:39 AM EDT) BK Virus Quant PCR PL Negative Plasma Narrative Resulting Agency Comment [facility] LAB BLOOD ORDERABLES Denisse l Result * Creatinine, urine, random (02/03/2025 9:39 AM EDT) Creatinine, Urine 79 Urine Narrative Resulting Agency Comment [facility] Result [facility] Provider URINE ORDERABLES Final Re sult * Urine Protein, Tot, Random (w/o Creat) (02/03/2025 9:39 AM EDT) Pathologist [facility] Total Protein, Ur 12.0 Urine Narrative Resulting Agency [facility] Provider URINE ORDERABLES Final Re sult * Hepatic Function Panel (02/03/2025 9:39 AM EDT) Pathologist [facility] Bilirubin, Direct 0.1 Bilirubin, Indirect 0.4 Alkaline Phosphatase 61 ALT 15 AST 18 Total Bilirubin 0.5 Total Protein 6.4 Plasma Narrative Resulting Agency Comment [facility] Result [facility] LAB BLOOD ORDERABLES Denisse l Result * (ABNORMAL) Magnesium (02/03/2025 9:39 AM EDT) [facility] Magnesium 1.3(A) 1.6 - 2.4 mg/dL Plasma Narrative Resulting Agency Comment [facility] Result [facility] Provider LAB BLOOD ORDERABLES Denisse l [...] Comment [facility] Result [facility] Provider LAB BLOOD ORDERABLES Denisse l Result * Urinalysis w/Rfl to Microscopic (02/03/2025 9:39 AM EDT) Pathologist [facility] Glucose, UA Negative Negative Ketones, UA Negative Negative Blood, UA Negative Negative Bilirubin, UA Negative Negative Urobilinogen, UA Normal Normal Protein, UA Negative Negative Nitrite, UA Negative Negative pH, UA 6.0 4.5 - 8.0 Specific [place], UA 1.020 1.005 - 1.030 Clarity, UA Clear Clear Color, UA Yellow Light Yellow, Yellow Urine Narrative Resulting Agency Comment [facility] Historical Provider URINE ORDERABLES Final Re [...] Blood Narrative Resulting Agency Comment [facility] Historical Provider LAB BLOOD ORDERABLES Denisse l Result documented in this encounter Visit Diagnoses Not on filedocumented in this encounter Additional Health Concerns Infection Onset Date Last Indicated Resolved Time C. difficile 01/28/2025 01/28/2025 Assessment Noted Time PHQ-9 Depression Total Score: 2 12/11/19 25 9:00 AM EDT documented as of this encounter Care Teams Compensation Expert Relationship Specialty Start Date End Date Enedina Mcguire NP [address] [place] [address] PCP - General Internal Medicine 10/05/24 Maureen Pantoja, ЮЛИЯ Txp Post Coordinator Transplant Hepatology 10/28/24 documented as of this encounter
--- OUTSIDE RECORDS SUMMARY | 2025-03-10 09:39 | XMS_ITS | Encounter Summary ---
Author Organization [facility] Address [address] [place] [address] Care Team Providers Care Institutional Commodity Analyst Name Role Phone Enedina Mcguire NP Primary Care Provider + [phone] Maureen Pantoja RN Unavailable Unavail able Source [...] release of HIV test results or diagnoses. [id number] Health Encounter Details Date Type Department Care Team (Late st Contact Info) Description 01/15/2025 Telephone [facility] Liver Transplant at [address] [phone] Marlene Ro MA Social History [...] Recorded In the past 12 months has [employer], gas, oil, or water [employer] threatened to shut off services in your [...] AM EDT I spoke with Gavin at [facility] about the phosphatidylethanol order tied to the patient???s registration. Although the order was found, it wasn???t sent to phlebotomy, so no test was done on 01/14. Due to this recurring issue, I contacted the airflight attendants supervisor, Gladys. We agreed I would notify the lab directly of one-time and standing orders and fax them at [phone] to prevent future errors. Gladys is also [...] as of this encounter Care Teams Institutional Commodity Analyst Relationship Specialty Start Date End Date Enedina Mcguire NP [address] [place] [address] PCP - General Internal Medicine 10/05/24 Maureen Pantoja, RN Txp Post Coordinator Transplant Hepatology 10/28/24 documented as of this encounter
--- OUTSIDE RECORDS SUMMARY | 2025-03-10 09:41 | XMS_ITS | Encounter Summary ---
Author Organization [facility] Address [address] [place] [address] Care Team Providers Care Coordinator Hotels Name Role Phone Enedina Mcguire NP Primary Care Provider + [phone] Maureen Pantoja RN Unavailable Unavail able Source [...] release of HIV test results or diagnoses. [id number] Health Encounter Details Date Type Department Care Team (Late st Contact Info) Description 02/09/2025 Telephone [facility] Liver Transplant at [address] [place] [phone] Marisela Martinez MA Social History Tobacco [...] Recorded In the past 12 months has [employer], [employer], oil, or water [employer] threatened to shut off services in your [...] documented as of this encounter Care Teams Coordinator Hotels Relationship Specialty Start Date End Date Enedina Mcguire NP [address] [place] [address] PCP - General Internal Medicine 10/05/24 Maureen Pantoja, ЮЛИЯ Txp Post Coordinator Transplant Hepatology 10/28/24 documented as of this encounter
--- OUTSIDE RECORDS SUMMARY | 2025-03-10 09:41 | XMS_ITS | Encounter Summary ---
Author Organization [facility] Address [address] [place] [address] Care Team Providers Care Electrical Engineering Intern Name Role Phone Enedina Mcguire NP Primary Care Provider + [phone] Maureen Pantoja RN Unavailable Unavail able Source [...] release of HIV test results or diagnoses. [id number] Health Encounter Details Date Type Department Care Team (Late st Contact Info) Description 02/12/2025 Social Work [facility] Liver Transplant at [address] [place] [phone] Kaylin Willard MSW Social History Tobacco Use [...] Recorded In the past 12 months has [employer], gas, oil, or water [employer] threatened to shut off services in your [...] for marijuana use and transplant. NUBIA Barros, INTERNATIONAL OPERATIONS MANAGER Transplant Shirt Creaser documented in this encounter Plan of Treatment Not on file documented as of this encounter Visit Diagnoses Not on filedocumented in this encounter Additional Health Concerns Infection Onset Date Last Indicated Resolved Time C. difficile 01/28/2025 01/28/2025 Assessment Noted Time PHQ-9 Depression Total Score: 2 12/11/19 25 9:00 AM EDT documented as of this encounter Care Teams Electrical Engineering Intern Relationship Specialty Start Date End Date Enedina Mcguire NP [address] [place] [address] PCP - General Internal Medicine 10/05/24 Maureen Pantoja, RN Txp Post Coordinator Transplant Hepatology 10/28/24 documented as of this encounter
--- OUTSIDE RECORDS SUMMARY | 2025-03-10 09:41 | XMS_ITS ---
Author Organization [facility] Address [facility] [place] [address] Care Team Providers Care Tire Mold Engraver Name Role Phone Enedina Mcguire NP Primary Care Provider + [phone] Maureen Pantoja RN Unavailable Unavail able Chris Orosco MD Unavailable [phone] Transplant Episode Liver Recipient [facility] [place] Organ Received: Liver Transplanted on 10/26/2024 Marked as Active Follow-up on 10/26/2024 Liver CoordinatorMaureen Pantoja RN Phone: N/A Fax: N/A Email: N/A [place] Organ Diagnosis Organ Primary Contributory Liver Alcohol-Associated [...] N/A Chris Orosco MD Referring Physician Txp Refrigeration Supervisor [phone] N/A Maureen Pantoja, ЮЛИЯ Txp Post Coordinator N/A N/A N/A NUBIA Barros Txp Physician Assistant Psychiatry N/A N/A N/A Harvey Domínguez III, MD Txp Surgeon [phone] N/A Mary Butler RN Txp Pre Coordinator N/A N/A N/A Events Post-Transplant Pre-Transplant Admitted: 10/25/2024 Referred: 08/13/2024 Transplanted: 10/26/2024 Evaluation began: Discharged: 11/02/2024 Committee: 10/14/2024 Center waitlisted: Pending Checklist Tasks (Due on or before 04/10/2025) Name Due Date Attached Appoint ment Social Work Consult 01/05/2025 Appointments (02/08/2025 - 04/10/2025) When With Visit Type Description 02/12/2025 Txp Tabatha Guillen ShaunnaDeepti, Ebony Established Patient Liver transplant recipient ([facility]) (Primary Dx); History of systemic steroid therapy; Kidney transplant recipient; Immunosuppressive management encounter following liver transplant ([facility]); Encounter for monitoring tacrolimus therapy; Vitamin D deficiency; Encounter for therapeutic drug monitoring; S/P liver transplant ([facility]); Hypomagnesemia; Hypertension, unspecified type; Gastroesophageal reflux disease, unspecified whether esophagitis present; Alcohol use disorder; Immunosuppression (CMS-HCC); Viral disease exposure
--- OUTSIDE RECORDS SUMMARY | 2025-03-10 09:41 | XMS_ITS | Encounter Summary ---
Author Organization [facility] Address [address] [place] [address] Care Team Providers Care Oil Field Tester Name Role Phone Enedina Mcguire NP Primary Care Provider + [phone] Maureen Pantoja RN Unavailable Unavail able Source [...] release of HIV test results or diagnoses. [id number] Reason for Visit * Reason Comments Results Encounter Details Date Type Department Care Team (Riky st Contact Info) Description 02/12/[address] [facility] Liver Transplant at [address] [phone] Maureen Pantoja, RN Results [...] Recorded In the past 12 months has [employer], gas, oil, or water company threatened to [...] as of this encounter Care Teams Oil Field Tester Relationship Specialty Start Date End Date Enedina Mcguire NP [address] [place] [address] PCP - General Internal Medicine 10/05/24 Maureen Pantoja, ЮЛИЯ Txp Post Coordinator Transplant Hepatology 10/28/24 documented as of this encounter
--- OUTSIDE RECORDS SUMMARY | 2025-03-10 09:41 | XMS_ITS ---
Author Organization [facility] Address [facility] [place] [address] Care Team Providers Care Business Support Professional Name Role Phone Enedina Mcguire NP Primary Care Provider + [phone] Maureen Pantoja RN Unavailable Unavail able Chris Orosco MD Unavailable [phone] Transplant Episode Kidney Recipient [facility] [place] - [facility] Organ Received: Left Kidney Transplanted on 10/27/2024 Marked as Active Follow-up on 10/27/2024 Kidney CoordinatorJosr Weber RN Phone: N/A Fax: N/A Email: N/A [place] Organ Diagnosis Organ Primary Contributory Kidney Hepatorenal [...] N/A N/A Flaquito Mayen MD Txp Surgeon [phone] N/A Bruno Gonzalez MD Txp Revenue Audit Clerk [phone] N/A Yovanny Curran MD Referring Physician [phone] N/A Events Post-Transplant Pre-Transplant Admitted: 10/25/2024 Referred: 10/07/2024 Transplanted: 10/27/2024 Evaluation began: 5 Discharged: 11/02/2024 Committee: 10/20/2024 Center waitlisted: 5 Appointments (02/08/2025 - 04/10/2025) When With Visit Type Description 02/25/2025 Tx Renal - Sara Gonzalez Established Patient K idney transplant recipient (Primary Dx); Neck pain with history of cervical spinal surgery; S/P liver transplant (CMS-HCC)
[2025-03-10 09:51] LABS: Hematocrit 38.2 % (42.0-52.0); Hemoglobin 13.5 g/dL (14.1-18.0); Immature Granulocytes % 0.7 %; Mean Corpuscular HGB Conc 35.3 g/dL (31.8-35.4); Mean Corpuscular Hemoglobin 33.9 pg (27.0-31.2); Mean Corpuscular Volume 96.0 fl (80-94); Nucleated Red Blood Cells % 0 %; Platelet Count 168 K/mm3 (142-424); Red Blood Count 3.98 M/mm3 (4.60-6.20); Red Cell Distribution Width-SD 51.5 fL; White Blood Count 5.6 K/mm3 (4.8-10.8)
[2025-03-10 10:22] LABS: Alanine Aminotransferase 28 U/L (12-78); Albumin Level 4.5 g/dl (3.5-5.0); Alkaline Phosphatase 102 U/L (38-126); Anion Gap 13.9 mEq/L (5-15); Aspartate Amino Transferase 26 U/L (17-59); Bilirubin,Direct 0.2 mg/dl (0.0-0.4); Bilirubin,Indirect 0.5 mg/dL (0.0-0.9); Bilirubin,Total 0.7 mg/dl (0.2-1.3); Bilirubin,Unconjugated 0.5 mg/dL (0.0-1.1); Blood Urea Nitrogen 13 mg/dl (9-20); Calcium 9.2 mg/dl (8.4-10.2); Carbon Dioxide 28 mmol/L (22.0-30.0); Chloride 100 mmol/L (98-107); Creatinine,Serum 1.30 mg/dl (0.66-1.25); Estimated Glomerular Filt Rate 61 ml/min (>60); GFR (African American) 74 ML/MIN (>60); Glucose 111 mg/dl (74-100); Phosphorous 5.0 mg/dl (2.5-4.5); Potassium 3.9 mmoL/L (3.5-5.1); Sodium 138 mmol/L (136-145); Total Protein,Serum 6.7 g/dl (6.3-8.2)
[2025-03-10 10:41] LABS: Magnesium 0.9 mg/dl (1.6-2.3)
[2025-03-10 13:05] LABS: Bilirubin,Urine Negative (Negative); Color,Urine YELLOW (Yellow); Glucose,Urine (UA) Negative (Negative); Ketones,Urine Negative (Negative); Leukocyte Esterase,Urine Negative (Negative); PH,Urine 5.5 (5.0-8.5); Protein,Urine Negative (Negative); Specific Gravity, Urine 1.015 (1.005-1.030); Urobilinogen,Urine 0.2 EU/dl (0.2)
[2025-03-10 13:39] LABS: Squamous Epithelial Cell,Urine Occasional #/hpf (0-5); WBC,Urine Occasional #/hpf (0-3)
== END 2025-03-10 23:59 | disposition home or self-care (01) ==
LOC: LAB 09:23
PROVIDERS: PCP Nurse Practitioner Family; Visit Provider Surgery
DX: D84.9 Immunodeficiency, unspecified (principal); K74.60 Unspecified cirrhosis of liver; R18.8 Other ascites; F10.90 Alcohol use, unspecified, uncomplicated; Z94.0 Kidney transplant status; Z94.4 Liver transplant status; Z79.60 Long term (current) use of unspecified immunomodulators and immunosuppressants
CPT/HCPCS: 36415; 80069; 80076; 80197; 80321; 81001; 82570; 83735; 84156; 85025; 87086; 87088; 87497

== ENCOUNTER 2025-03-13 14:24 | Outpatient (CLI) | payer OTHER, SELFPAY ==
--- OUTSIDE RECORDS SUMMARY | 2024-09-02 14:40 | XMS_ITS | Encounter Summary ---
Author Organization [facility] Address [address] [place] [address] Care Team Providers Care Log Rider Name Role Phone Enedina Mcguire NP Primary Care Provider + [phone] Maureen Pantoja RN Unavailable Unavail able Source [...] release of HIV test results or diagnoses. [id number] Reason for Visit * Reason Comments Follow-up Bloating in PT stoma ch * Hospital Discharge Follow-Up (Routine) - Closed Specialty Diagnoses / Procedures Referred By Shane t Referred To Contact Hepatology Feliciano Freeman MD [address] [place] [address] Phone: tel: fax: Referral ID Status Reason Start Date Expiration Date Visits Re quested Visits Authorized [id number] Closed 07/29/2024 01/25/2025 1 1 Encounter Details Date Type Department Care Team (Latest Contact Info) Description 09/02/2024 2:40 PM EDT Office Visit [facility] G[facility]enterology at [place] [facility] [address] [facility] [address] [place] [phone] Gerri Peterson MD [address] [place] [address] Cirrhosis of liver with ascites, [...] the past 12 months has th e [employer], [employer], oil, or water [employer] threatened to shut off services in your [...] any time in the past 12 m [facility], were you homeless or living in a residential (including now)? No 01/28/2025 Yearly Questionnaire Answer [...] [facility] NOTE Chief complaint: Post hospital [...] worsening ascites and had therapeutic paracentesis at [facility] with about a week prior to [...] will prefer to have LVP done at [facility]. Will print out paper order for [...] Chris Orosco MD, MPH Transplant hepatology Pager: [phone] documented in this encounter Plan of Treatment Not on file documented as of this encounter Results * (ABNORMAL) CBC (09/02/2024 5:00 PM EDT) WBC 10.4 3.8 - 10.8 10E3/uL 09/02/2024 7:42 PM EDT [facility] RBC 3.13(L) 4.20 - 5.80 10E6/uL 09/02/2024 7:42 PM EDT [facility] Hemoglobin 11.1(L) 13.2 - 17.1 g/dL 09/02/2024 7:42 PM EDT [facility] Hematocrit 30.7(L) 38.5 - 50.0 % 09/02/2024 7:42 PM EDT [facility] MCV 97.9 80.0 - 100.0 fL 09/02/2024 7:42 PM EDT [facility] MCH 35.3(H) 27.0 - 33.0 pg 09/02/2024 7:42 PM EDT [facility] MCHC 36.1(H) 32.0 - 36.0 g/dL 09/02/2024 7:42 PM EDT [facility] RDW 22.7(H) 11.0 - 15.0 % 09/02/2024 7:42 PM EDT [facility] Platelets 73(L) 140 - 400 10E3/uL 09/02/2024 7:42 PM EDT [facility] MPV 9.4 7.5 - 11.5 fL 09/02/2024 7:42 PM EDT [facility] Whole Blood 09/02/2024 5:00 PM EDT 09/02/2024 7:34 PM EDT us Gerri Peterson MD LAB BLOOD ORDERABLES Final Resu lt [facility] [address] documented in this encounter Visit Diagnoses [...] documented as of this encounter Care Teams Log Rider Relationship Specialty Start Date End Date Enedina Mcguire NP [address] [place] [address] PCP - General Internal Medicine 10/05/24 Maureen Pantoja, RN Txp Post Coordinator Transplant Hepatology 10/28/24 documented as of this encounter
--- OUTSIDE RECORDS SUMMARY | 2025-01-06 08:20 | XMS_ITS | Encounter Summary ---
Author Organization [facility] Address [address] [place] [address] Care Team Providers Care Graphic Design Specialist Name Role Phone Enedina Mcguire NP Primary Care Provider + [phone] Maureen Pantoja RN Unavailable Unavail able Source [...] release of HIV test results or diagnoses. [id number] Reason for Visit * Reason Comments Liver Transplant Follow-up Encounter Details Date Type Department Care Team (Late st Contact Info) Description 01/06/2025 8:20 AM EDT Office Visit [facility] Liver Transplant at [address] [address] Cosmo Pacheco MD [address] [place] [address] [place] [address] Mahad Alonzo MD [facility] [place] [address] S/P liver transplant (CMS-HCC) (Primary [...] the past 12 months has th e [employer], gas, oil, or water company threatened to [...] Nutrition: patient continues close f/u w/ transplant professor of political science. - Bone health: Vit D level to be drawn ~POD#90. - Labs: Labs (CBC w/ diff, renal panel, liver panel, tacro level) weekly. Lipid panel, HgbA1C and Vit D level to be drawn at POD#90, HgbA1C and Vit D level to be drawn at POD#180. - Follow up: RTC 1 month Mahad Alonzo MD Transplant Surgery [phone] [1] Allergies Allergen Reactions Adhesive Itching and [...] as of this encounter Care Teams Graphic Design Specialist Relationship Specialty Start Date End Date Enedina Mcguire NP [address] [place] [address] PCP - General Internal Medicine 10/05/24 Maureen Pantoja, ЮЛИЯ Txp Post Coordinator Transplant Hepatology 10/28/24 documented as of this encounter
--- OUTSIDE RECORDS SUMMARY | 2025-01-27 18:28 | XMS_ITS | Encounter Summary ---
Author Organization [facility] Address [facility] [place] [address] Care Team Providers Care Breaker Oiler Name Role Phone Enedina Mcguire NP Primary Care Provider + [phone] Maureen Pantoja RN Unavailable Unavail able Source [...] release of HIV test results or diagnoses. [id number] Reason for Visit * Reason Comments Fever Immunocompromised 89F x1 day ago Diarrhea Headache * Auth/Cert (Routine) Specialty Diagnoses / Procedures Referred By Contac t Referred To Contact Transplant Diagnoses Diarrhea of presumed infectious origin [address] [place] [address] Phone: tel: Referral ID Status Reason Start Date Expiration Date Visits Re quested Visits Authorized [id number] 1 1 Encounter Details Date Type Department Care Team (Latest Contact Info) Description 01/27/2025 6:28 PM EDT - 01/30/2025 2:25 PM EDT Hospital Encounter [address] [place] [address] Sunny Wei MD [address] [address] Lydia Sanchez MD [address] [facility][Note 3] Liver/[place] [address] Diarrhea of presumed infectious origin (Primary Dx); Immunosuppression ([facility]) Discharge Disposition: Home or Self Care WITHOUT [...] the past 12 months has th e [employer], gas, oil, or water Merku threatened to [...] living in a retirement (including now)? No 01/28/2025 Yearly Questionnaire Answer [...] Tian LSW - 01/30/2025 1:04 PM EDT [facility] Care Management Discharge Summary Patient name: [...] at Discharge: Abdiaziz Gilbert- Family Contact Number: [phone] Plan reviewed with MD and other members of the health care team: Yes Care Plan Completed: Yes No further CM/SW needs. This plan has been reviewed with the multi-disciplinary team. Treatment Preferences Treatment Preferences: Distance Post-Discharge Goals Patient's Post-Discharge goals: Get stronger at home. Post Acute Care Provider Information: Community Services at Discharge Community Services at Home post discharge: Not Applicable RONALDO Garner [phone] * Feliciano Gomez CNP - 01/30/2025 8:39 AM EDT [facility] Inpatient Discharge Summary Patient: Julien Gilbert Age: 39 y.o. [facility] [place]: [id number] Date of Admission: 01/27/2025 Date of Discharge: 01/30/2025 Attending Physician: Lydia Sanchez MD Primary Care Physician: Enedina Mcguire NP Diagnoses Present on Admission Past Medical History: Diagnosis Date Alcoholic cirrhosis of liver (CMS-HCC) Esophageal varices ([facility]-HCC) Hepatorenal syndrome ([facility]-H[facility]) Hypertension Other hyperlipidemia 07/26/2024 Renal cell carcinoma ([facility]-HCC) Thrombocytopenia ([facility]-H[facility]) Thyroid disease Discharge Diagnoses There are no [...] These medications were sent to [facility] [address] [place] [id number] Hours: Sunday - Sunday: 8:00AM - 6:00PM [...] Instructions: Call post-kidney transplant clinic with questions [phone] or call [facility] at [phone] and ask for the kidney bereavement coordinator stonecutter hand if you experience any of the following: [...] through Care Everywhere. * C. Diff Infection Qtoy-vj-Sklf (Azerbaijani) documented in this encounter Medications at Time of Discharge cyclobenzaprine (FLEXERIL) 5 MG tablet Take 1 tablet (5 mg total) by mouth 3 times a day. 90 tablet 01/30/2025 11:36 AM EDT 5 ergocalciferol (ERGOCALCIFEROL) 1,250 mcg (50,000 unit) capsuleIndications:E ncounter for therapeutic drug monitoring,S/P liver transplant ([facility]),Hypomagnes emia,Kidney transplant recipient,Hypertensi on, unspecified type,Gastroesophagea l [...] ncounter for therapeutic drug monitoring,S/P liver transplant ([facility]),Hypomagnes emia,Kidney transplant recipient,Hypertensi on, unspecified [...] ncounter for therapeutic drug monitoring,S/P liver transplant ([facility]),Hypomagnes emia,Kidney transplant recipient,Hypertensi on, unspecified type,Gastroesophagea l reflux disease, unspecified whether esophagitis present Take 2 capsules (500 mg total) by mouth 2 times a day. 120 capsule 5 5 02/27/20 25 NIFEdipine (PROCARDIA-XL) 30 MG (OSM) 24 hr tabletIndications:En counter for therapeutic drug monitoring,S/P liver transplant ([facility]),Hypomagnes emia,Kidney transplant recipient,Hypertensi on, unspecified [...] and treatment with this patient/family. Please page [phone] with any additional questions or concerns. Thank [...] Bisi Gonzalez MD 01/29/2025 9:15 AM Pager: [phone] * Feliciano Gomez CNP - 01/29/2025 8:12 [...] QPM Continuous Infusions: PRN Meds: acetaminophen ASSESSMENT/PLAN Juline Gilbert is a 39 y.o. male [...] plan per attending physician Feliciano Gomez CNP ,HAND RUG CLEANER Transplant Surgery 01/29/2025 This note was completely [...] plan per attending physician Feliciano Gomez CNP ,HAND RUG CLEANER Transplant Surgery 01/28/2025 Cosigned by Lydia Sanchez [...] Sevilla MD - 01/27/2025 7:19 PM EDT [facility] ED Note Date of Service: 01/27/2025 Reason [...] N/A 10/14/2024 Procedure: Left Heart Cath; Surgeon: Irvign Matta MD; Location: CARDIAC CATH LABS; Service:Cath; [...] History and Physical Patient: Julien Gilbert CSN: [id number] History CC: neutropenic fevers, diarrhea HPI: Julien Gilbret is a 39 y.o. male with past [...] Resource Strain: Low Risk (07/09/2024) Received from [facility] Overall Financial Resource Strain [...] Physical Activity: Unknown (07/14/2024) Received from [facility] Exercise Vital Sign Days of Exercise per Week: Patient unable to answer Minutes of Exercise per Session: Not on file Stress: Patient Unable To Answer (07/14/2024) Received from [facility] [employer] - Occupational Stress Questionnaire Feeling of Stress : Patient unable to answer Social Connections: Patient Unable To Answer (07/14/2024) Received from [facility] Social Connection and Isolation Panel [NHANES] [...] SQH Admit to floor SHELBY BLANCO MD [facility] General Surgery Cosigned by Lydia Sanchez MD [...] this encounter Consult Notes * NUBIA Tian, [employer] - 01/28/2025 11:02 AM EDT [facility] Alcohol Audit Julien Gilbert [id number] 1985 Alcohol Level Alcohol Level obtained?: No [...] Sanchez MD Patient's Name: Julien Gilbert CSN: [id number] Reason for Consult Antimicrobial Recommendations Assessment & [...] chicken or bird exposure. Remote cruise to [employer], but no recent international travel. Microbiology Blood [...] pain. Bisi Gonzalez MD Infectious Diseases Pager [phone] * Nahomi Hillman MSW, [employer] - 01/28/2025 8:21 AM EDT [facility] Care Management/Social Work Assessment Patient Information Patient Name: Julien Gilbert Hospital Day: 1 Inpatient/Observation: Inpatient Admit Date: 01/27/2025 Admission Diagnosis: Diarrhea of presumed infectious origin [R19.7] Attending provider: Lydia Sanchez MD PCP: Enedina Mcguire NP [facility] [address] [place] [address] [place] [address] [facility] [address] [address] [address] [facility] [address] [address] Pertinent Medications Anticoagulation therapy: No New Diabetic: No Issues related to obtaining medications: none Payor Information Medical Insurance Coverage: Payor: [employer] / Plan: [employer] / Product Type: *No Product type* / Secondary Payor: [facility] Functional Assessment Functional Assessment Assessment Information [...] No Status & Connection to [facility] [place] Status & Connection to [place] Services Are you a ?: No Support [...] Patient reported that he is not a [place]. Patient reported he is employed full- time. [...] or dialysis. Patient has no history of long term facility or inpatient rehabilitation facility admissions. Patient has no history of home health care services. Patient receives outpatient labs at his appointments. PCP: Enedina Mcguire SWCM confirmed with patient/family that there are no additional SWCM needs at this time. SW provided the family with SW contact [phone]. Patient/Family aware and taking part in the [...] are disclosed as appropriate. NUBIA TIAN, RONALDO [phone] documented in this encounter Nursing Notes * [...] and is agreeable. Receiving RN may call [phone] to consult ED RN with questions regarding [...] RN - 01/27/2025 7:07 PM EDT Bed: [facility] Expected date: Expected time: Means of [...] Patient will remain free of falls Goal: Aline Fall Precautions Outcome: Progressing Problem: Daily Care [...] Tian LSW - 01/29/2025 11:45 AM EDT [facility] Case Management/Social Work Department Progress Note Patient Information Patient Name: Julien Gilbert Hospital day: 2 Inpatient/Observation: Inpatient Level of Care: Transplant/floor Admit date: 01/27/2025 Admission diagnosis: Diarrhea of presumed infectious origin [R19.7] PMH: has a past medical history of Alcoholic cirrhosis of liver (CMS-HCC), Esophageal varices ([facility]), Hepatorenal syndrome ([facility]), Hypertension, Other hyperlipidemia (07/26/2024), Renal cell carcinoma (CMS-HCC), Thrombocytopenia ([facility]), and Thyroid disease. PCP: Enedina Mcguire NP Home Pharmacy: [facility] - [place], [place] - [id number] [address] [facility] - [place], [place] - [address] [facility] [address] [facility] [address] [facility] [address] [place] [address] Medical Insurance Coverage: Payor: [employer] CARE / Plan: [employer] [facility] / Product Type: *No Product type* / Other Pertinent Information SWCM attended multidisciplinary rounds with the Transplant Team. [facility]CM [facility] is not medically ready to discharge. Patient to receive CT scan. Patient goes outpatient for lab draws. Discharge Plan Anticipated discharge plan: Home w OP labs Anticipated discharge date: 01/30 CM/SW will continue to follow and remain available for discharge planning needs. NUBIA TIAN, RONALDO [phone] * Plan of Care - Vandana Vilchis [...] Patient will remain free of falls Goal: Aline Fall Precautions Outcome: Progressing Problem: Daily Care [...] Patient will remain free of falls Goal: Aline Fall Precautions Outcome: Progressing * ED Medical Screening Exam - NAA Dunn - 01/27/2025 6:36 PM EDT [facility] Provider Note MEDICAL SCREENING [...] Pending) There is a bed available in [facility] and the patient will be taken directly [...] Routine 9:30 PM EDT UPPER RESPIRATORY VIRAL/BACTERIAL PANEL-TALENT ANALYST ONLY Routine 01/27/2025 9:30 PM EDT LACTIC ACID, VENOUS BLOOD GAS STAT 01/27/2025 9:30 PM EDT HISTOPLASMA/BLASTOMYCES AG, EIA, U Routine 01/27/2025 8:44 PM EDT STREP PNEUMO-LEGIONELLA URINE ANTIGEN Routine 01/27/2025 8:44 PM EDT URINALYSIS, MICROSCOPIC STAT 01/28/20 8:44 PM EDT URINALYSIS-MACROSCOPIC W/REFLEX TO MICROSCOPIC STAT 01/27/2025 8:44 PM EDT HISTOPLASMA/BLASTOMYCES AG, EIA, S Routine 01/27/2025 8:20 PM EDT FUNGITELL [id number] Routine 01/28/20 8:20 PM EDT CRYPTOCOCCUS ANTIGEN, [...] - 80.0 % 01/30/2025 8:09 AM EDT [facility] Lymphocytes Relative 43.8 15.0 - 45.0 % 01/30/2025 8:09 AM EDT [facility] Monocytes Relative 14.2(H) 0.0 - 12.0 % 01/30/2025 8:09 AM EDT [facility] Eosinophils Relative 2.2 0.0 - 8.0 % 01/30/2025 8:09 AM EDT [facility] Basophils Relative 0.7 0.0 - 1.0 % 01/30/2025 8:09 AM EDT [facility] nRBC 0 0 - 0 /100 WBC 01/30/2025 8:09 AM EDT [facility] Neutrophils Absolute 782(L) 1,520 - 8,640 /uL 01/30/2025 8:09 AM EDT [facility] Lymphocytes Absolute 876 570 - 4,860 /uL 01/30/2025 8:09 AM EDT [facility] Monocytes Absolute 284 0 - 1,296 /uL 01/30/2025 8:09 AM EDT [facility] Eosinophils Absolute 44 0 - 864 /uL 01/30/2025 8:09 AM EDT [facility] Basophils Absolute 14 0 - 108 /uL 01/30/2025 8:09 AM EDT [facility] Whole Blood 01/30/2025 7:41 AM EDT 01/30/2025 8:01 AM EDT Feliciano Gomez [facility] BLOOD ORDERABLES Final Resu lt [facility] [address] [place] [address], [facility] * Tacrolimus level (01/30/2025 5:51 AM EDT) Tacrolimus (LC-MS) 6.5 3.0 - 15.0 ng/mL 01/30/2025 11:11 AM EDT [facility] Comment:Performed via liquid chromatography tandem mass spectrometry. Detection limit: 1 ng/mL. Individual target concentrations may vary due to target organ and time after transplant. This test has been developed and its performance characteristics determined by [facility] which is certified under the [...] Hill MD LAB BLOOD ORDERABLES Final Result [facility] [address] * (ABNORMAL) Renal Function Panel w/EGFR (01/30/2025 5:51 AM EDT) Sodium 139 133 - 146 mmol/L 01/30/2025 7:06 AM EDT [facility] Potassium 3.5 3.5 - 5.3 mmol/L 01/30/2025 7:06 AM EDT [facility] Chloride 105 98 - 110 mmol/L 01/30/2025 7:06 AM EDT [facility] CO2 26 21 - 33 mmol/L 01/30/2025 7:06 AM EDT [facility] Anion Gap 8 3 - 16 mmol/L 01/30/2025 7:06 AM EDT [facility] BUN 29(H) 7 - 25 mg/dL 01/30/2025 7:06 AM EDT [facility] Creatinine 1.14 0.60 - 1.30 mg/dL 01/30/2025 7:06 AM EDT [facility] Glucose 114(H) 70 - 100 mg/dL 01/30/2025 7:06 AM EDT [facility] Calcium 8.7 8.6 - 10.3 mg/dL 01/30/2025 7:06 AM EDT [facility] Phosphorus 5.1(H) 2.1 - 4.7 mg/dL 01/30/2025 7:06 AM EDT [facility] Albumin 4.1 3.5 - 5.7 g/dL 01/30/2025 7:06 AM EDT [facility] Osmolality, Calculated 295 278 - 305 mOsm/kg 01/30/2025 7:06 AM EDT [facility] EGFR 83 01/30/2025 7:06 AM EDT [facility] Comment:As of 2021, the [...] Hill MD LAB BLOOD ORDERABLES Final Result [facility] [address] * (ABNORMAL) Hepatic Function Panel (01/30/2025 5:51 AM EDT) Total Bilirubin 0.3 0.0 - 1.5 mg/dL 01/30/2025 7:06 AM EDT [facility] Bilirubin, Direct 0.05 0.00 - 0.40 mg/dL 01/30/2025 7:06 AM EDT [facility] AST 13 13 - 39 U/L 01/30/2025 7:06 AM EDT [facility] ALT 14 7 - 52 U/L 01/30/2025 7:06 AM EDT [facility] Alkaline Phosphatase 60 36 - 125 U/L 01/30/2025 7:06 AM EDT [facility] Total Protein 5.9(L) 6.4 - 8.9 g/dL 01/30/2025 7:06 AM EDT [facility] Albumin 4.1 3.5 - 5.7 g/dL 01/30/2025 7:06 AM EDT [facility] Bilirubin, Indirect 0.25 0.00 - 1.10 mg/dL 01/30/2025 7:06 AM EDT [facility] Plasma 01/30/2025 5:51 AM EDT 01/30/2025 6:31 AM EDT Carlton Hill MD LAB BLOOD ORDERABLES Final Result [facility] [address] [facility]. [address] * Magnesium (01/30/2025 5:51 AM EDT) Magnesium 1.7 1.5 - 2.5 mg/dL 01/30/2025 7:06 AM EDT [facility] Plasma 01/30/2025 5:51 AM EDT 01/30/2025 6:31 AM EDT Carlton Hill MD LAB BLOOD ORDERABLES Final Result [facility] [address] * (ABNORMAL) CBC (01/30/2025 5:51 AM EDT) WBC 2.1(L) 3.8 - 10.8 10E3/uL 01/30/2025 6:41 AM EDT [facility] RBC 3.41(L) 4.20 - 5.80 10E6/uL 01/30/2025 6:41 AM EDT [facility] Hemoglobin 11.2(L) 13.2 - 17.1 g/dL 01/30/2025 6:41 AM EDT [facility] Hematocrit 31.9(L) 38.5 - 50.0 % 01/30/2025 6:41 AM EDT [facility] MCV 93.7 80.0 - 100.0 fL 01/30/2025 6:41 AM EDT [facility] MCH 32.9 27.0 - 33.0 pg 01/30/2025 6:41 AM EDT [facility] MCHC 35.1 32.0 - 36.0 g/dL 01/30/2025 6:41 AM EDT [facility] RDW 14.8 11.0 - 15.0 % 01/30/2025 6:41 AM EDT [facility] Platelets 95(L) 140 - 400 10E3/uL 01/30/2025 6:41 AM EDT [facility] MPV 6.4(L) 7.5 - 11.5 fL 01/30/2025 6:41 AM EDT [facility] Whole Blood 01/30/2025 5:51 AM EDT 01/30/2025 6:33 AM EDT Carlton Hill MD LAB BLOOD ORDERABLES Final Result [facility] [address] [place] [address], [facility] * CT Neck With IV contrast [...] cavity, parapharyngeal space, and retropharyngeal space. Normal fire safety director space, infratemporal fossa, and buccal space. Infrahyoid [...] CT images of the neck were obtained bobaw027 mL of IOHEXOL 350 MG IODINE/ML INTRAVENOUS SOLUTION administeredintravenously . Sagittal and coronal 2D multiplanar reconstructions wereperformed at the scanner. COMPARISON: None available FINDINGS: Adequate diagnostic quality. Nasopharynx: Symmetric with no mass. Normal torus tubarius, fossa ofRosenmuller, and adenoid tonsillar tissue. Suprahyoid neck: Normal oropharynx, oral cavity, parapharyngeal space, andretropharyngeal space. Normal fire safety director space, infratemporal fossa, andbuccal space. Infrahyoid neck: [...] level (01/29/2025 5:55 AM EDT) Pathologist [facility] Tacrolimus (LC-MS) 9.1 3.0 - 15.0 ng/mL 01/29/2025 9:10 AM EDT [facility] Comment:Performed via liquid chromatography tandem mass spectrometry. Detection limit: 1 ng/mL. Individual target concentrations may vary due to target organ and time after transplant. This test has been developed and its performance characteristics determined by [facility] which is certified under the [...] Hill MD LAB BLOOD ORDERABLES Final Result [facility] [address] [place] [address], [facility] * (ABNORMAL) Renal Function Panel w/EGFR (01/29/2025 5:55 AM EDT) Sodium 138 133 - 146 mmol/L 01/29/2025 7:13 AM EDT [facility] Potassium 3.9 3.5 - 5.3 mmol/L 01/29/2025 7:13 AM EDT [facility] Chloride 102 98 - 110 mmol/L 01/29/2025 7:13 AM EDT [facility] CO2 27 21 - 33 mmol/L 01/29/2025 7:13 AM EDT [facility] Anion Gap 9 3 - 16 mmol/L 01/29/2025 7:13 AM EDT [facility] BUN 23 7 - 25 mg/dL 01/29/2025 7:13 AM EDT [facility] Creatinine 1.39(H) 0.60 - 1.30 mg/dL 01/29/2025 7:13 AM EDT [facility] Glucose 108(H) 70 - 100 mg/dL 01/29/2025 7:13 AM EDT [facility] Calcium 9.6 8.6 - 10.3 mg/dL 01/29/2025 7:13 AM EDT [facility] Phosphorus 5.6(H) 2.1 - 4.7 mg/dL 01/29/2025 7:13 AM EDT [facility] Albumin 4.8 3.5 - 5.7 g/dL 01/29/2025 7:13 AM EDT [facility] Osmolality, Calculated 290 278 - 305 mOsm/kg 01/29/2025 7:13 AM EDT [facility] EGFR 65 01/29/2025 7:13 AM EDT [facility] Comment:As of 2021, the [...] BLOOD ORDERABLES Final Result Performing Organization Address City/[facility]/ZIP Co de Phone Number [facility] [address] [facility]. [address] * Hepatic Function Panel (01/29/2025 5:55 AM EDT) Total Bilirubin 0.5 0.0 - 1.5 mg/dL 01/29/2025 7:13 AM EDT [facility] Bilirubin, Direct 0.08 0.00 - 0.40 mg/dL 01/29/2025 7:13 AM EDT [facility] AST 19 13 - 39 U/L 01/29/2025 7:13 AM EDT [facility] ALT 19 7 - 52 U/L 01/29/2025 7:13 AM EDT [facility] Alkaline Phosphatase 59 36 - 125 U/L 01/29/2025 7:13 AM EDT [facility] Total Protein 7.0 6.4 - 8.9 g/dL 01/29/2025 7:13 AM EDT [facility] Albumin 4.8 3.5 - 5.7 g/dL 01/29/2025 7:13 AM EDT [facility] Bilirubin, Indirect 0.42 0.00 - 1.10 mg/dL 01/29/2025 7:13 AM EDT [facility] Plasma 01/29/2025 5:55 AM EDT 01/29/2025 6:41 AM EDT Carlton Hill MD LAB BLOOD ORDERABLES Final Result [facility] [address] [place] [facility]. [address] * Magnesium (01/29/2025 5:55 AM EDT) Magnesium 2.5 1.5 - 2.5 mg/dL 01/29/2025 7:13 AM EDT [facility] Plasma 01/29/2025 5:55 AM EDT 01/29/2025 6:41 AM EDT Carlton Hill MD LAB BLOOD ORDERABLES Final Result [facility] [address] * (ABNORMAL) CBC (01/29/2025 5:55 AM EDT) WBC 2.4(L) 3.8 - 10.8 10E3/uL 01/29/2025 6:53 AM EDT [facility] RBC 3.88(L) 4.20 - 5.80 10E6/uL 01/29/2025 6:53 AM EDT [facility] Hemoglobin 12.8(L) 13.2 - 17.1 g/dL 01/29/2025 6:53 AM EDT [facility] Hematocrit 36.6(L) 38.5 - 50.0 % 01/29/2025 6:53 AM EDT [facility] MCV 94.1 80.0 - 100.0 fL 01/29/2025 6:53 AM EDT [facility] MCH 32.9 27.0 - 33.0 pg 01/29/2025 6:53 AM EDT [facility] MCHC 34.9 32.0 - 36.0 g/dL 01/29/2025 6:53 AM EDT [facility] RDW 14.8 11.0 - 15.0 % 01/29/2025 6:53 AM EDT [facility] Platelets 119(L) 140 - 400 10E3/uL 01/29/2025 6:53 AM EDT [facility] MPV 6.2(L) 7.5 - 11.5 fL 01/29/2025 6:53 AM EDT [facility] Whole Blood 01/29/2025 5:55 AM EDT 01/29/2025 6:41 AM EDT Carlton Hill MD LAB BLOOD ORDERABLES Final Result [facility] [address] * Sed Rate (01/29/2025 5:55 AM EDT) Pathologist [facility] Sed Rate 2 0 - 15 mm/hr 01/29/2025 7:03 AM EDT [facility] Whole Blood 01/29/2025 5:55 AM EDT 01/29/2025 6:41 AM EDT Feliciano Garcia Jason USED CAR SALES MANAGER LAB BLOOD ORDERABLES Final Resu lt [facility] [address] * C-Reactive Protein (01/29/2025 5:55 AM EDT) [facility] CRP 4.1 1.0 - 10.0 mg/L 01/29/2025 7:13 AM EDT [facility] Plasma 01/29/2025 5:55 AM EDT 01/29/2025 6:41 AM EDT Feliciano Jose Jason [facility] BLOOD ORDERABLES Final Resu lt Performing Organization Address [facility] de Phone Number [facility] [address] [facility]. [address] * Giardia Cryptosporidium Antigens (Feces) (01/28/2025 9:27 PM EDT) [facility] Cryptosporidium Ag Negative Negative 2024 8:03 AM EDT [facility] Giardia Ag Negative Negative 01/29/2025 8:03 AM EDT [facility] Comment: Detection of Giardia and Cryptosporidium antigen is more sensitive and specific than microscopy. Because antigens are shed continuously, repeat testing is rarely warranted. Feces 01/28/2025 9:27 PM EDT 01/28/2025 10:07 PM EDT Comment:F Ruby Chiang MD MICROBIOLOGY - GENERAL ORDERAB LES Final Result Performing Organization Address City/[facility]/ZIP Co de Phone Number [facility] [address] [facility]. [address] * Ova and Parasite Comprehensive w/Giardia (Feces) (01/28/2025 9:27 PM EDT) [facility] O & P Method: Concentration and Trichrome Stain [facility] Results No Amoeba, Ova, Or Parasites Seen. -- O and P examination of additional specimens is recommended only for symptomatic patients, immunosuppressed patients or those with an appropriate travel history. [facility] Feces FECES / Unknown 01/28/2025 9 :27 PM EDT 01/28/2025 10:07 PM EDT Comment:F Ruby Chiang MD MICROBIOLOGY - GENERAL ORDERAB LES Final Result Performing Organization Address [facility]/ZIP Co de Phone Number [facility] [address] [facility]. [address] * Clostridium Difficile Toxin A/B Antigen (01/28/2025 1:21 PM EDT) [facility] CDIFF Tox AGN Negative Negative 01/28/2025 10:35 PM EDT [facility] Comment:C. difficile nucleic acid testing [...] ORDERABL ES Final Result Performing Organization Address City/[facility]/ZIP Co de Phone Number [facility] [address] [facility]. [address] * (ABNORMAL) Clostridium difficile DNA Amplification (01/28/2025 1:21 PM EDT) [facility] Clost. Diff DNA Amp. Positive( A) Negative 01/28/2025 11:22 PM EDT [facility] Comment:Positive indicates t oxigenic C. difficile was detected in the sample. Negative indicates that toxigenic C. difficile was not detected above the limit of the detection of the assay. The test methodology is a FDA approved DNA amplification assay. Stool, Liquid FECES / Unknown 01/28/2025 1:21 PM EDT 01/28/2025 1:48 PM EDT Comment:F us Wiggins Jose Gomez USED CAR SALES MANAGER BODY FLUIDS AND STOOLS ORDERABL ES Final Result [facility] [address] [place], [place] [address] * Phosphatidylethanol Confirmation, B (01/28/2025 7:14 [...] Food and Drug Administration. Test Performed by: [facility] [address] [place] [address] Capper Machine Operator: Kathy Ortiz Ph.D.; CLIA# [id number] Whole Blood 01/28/2025 7:14 AM EDT 01/30/2025 9:58 AM EDT Carlton Hill MD LAB BLOOD ORDERABLES Final Result Performing Organization Address City/[facility]/ZIP Co de Phone Number [facility] [address] * (ABNORMAL) Tacrolimus level (01/28/2025 7:14 AM EDT) Pathologist [facility] Tacrolimus (LC-MS) 16.4(H) 3.0 - 15.0 ng/mL 01/28/2025 12:41 PM EDT [facility] Comment:Performed via liquid chromatography tandem mass spectrometry. Detection limit: 1 ng/mL. Individual target concentrations may vary due to target organ and time after transplant. This test has been developed and its performance characteristics determined by [facility] which is certified under the [...] BLOOD ORDERABLES Final Result Performing Organization Address City/[facility]/ZIP Co de Phone Number [facility] [address] [facility]. [address] * Renal Function Panel w/EGFR (01/28/2025 7:14 AM EDT) Sodium 138 133 - 146 mmol/L 01/28/2025 9:00 AM EDT [facility] Potassium 3.7 3.5 - 5.3 mmol/L 01/28/2025 9:00 AM EDT [facility] Chloride 102 98 - 110 mmol/L 01/28/2025 9:00 AM EDT [facility] CO2 26 21 - 33 mmol/L 01/28/2025 9:00 AM EDT [facility] Anion Gap 10 3 - 16 mmol/L 01/28/2025 9:00 AM EDT [facility] BUN 17 7 - 25 mg/dL 01/28/2025 9:00 AM EDT [facility] Creatinine 1.14 0.60 - 1.30 mg/dL 01/28/2025 9:00 AM EDT [facility] Glucose 91 70 - 100 mg/dL 01/28/2025 9:00 AM EDT [facility] Calcium 9.3 8.6 - 10.3 mg/dL 01/28/2025 9:00 AM EDT [facility] Phosphorus 4.4 2.1 - 4.7 mg/dL 01/28/2025 9:00 AM EDT [facility] Albumin 4.2 3.5 - 5.7 g/dL 01/28/2025 9:00 AM EDT [facility] Osmolality, Calculated 287 278 - 305 mOsm/kg 01/28/2025 9:00 AM EDT [facility] EGFR 83 01/28/2025 9:00 AM EDT [facility] Comment:As of 2021, the [...] Yamani MD LAB BLOOD ORDERABLES Final Result [facility] [address] [place] [address] * (ABNORMAL) Hepatic Function Panel (01/28/2025 7:14 AM EDT) Total Bilirubin 0.8 0.0 - 1.5 mg/dL 01/28/2025 9:00 AM EDT [facility] Bilirubin, Direct 0.14 0.00 - 0.40 mg/dL 01/28/2025 9:00 AM EDT [facility] AST 17 13 - 39 U/L 01/28/2025 9:00 AM EDT [facility] ALT 19 7 - 52 U/L 01/28/2025 9:00 AM EDT [facility] Alkaline Phosphatase 45 36 - 125 U/L 01/28/2025 9:00 AM EDT [facility] Total Protein 6.2(L) 6.4 - 8.9 g/dL 01/28/2025 9:00 AM EDT [facility] Albumin 4.2 3.5 - 5.7 g/dL 01/28/2025 9:00 AM EDT [facility] Bilirubin, Indirect 0.66 0.00 - 1.10 mg/dL 01/28/2025 9:00 AM EDT [facility] Plasma 01/28/2025 7:14 AM EDT 01/28/2025 8:22 AM EDT Carlton Hill MD LAB BLOOD ORDERABLES Final Result [facility] [address] * (ABNORMAL) Magnesium (01/28/2025 7:14 AM EDT) Magnesium 1.1(L) 1.5 - 2.5 mg/dL 01/28/2025 9:00 AM EDT [facility] Plasma 01/28/2025 7:14 AM EDT 01/28/2025 8:22 AM EDT Carlton Hill MD LAB BLOOD ORDERABLES Final Result [facility] [address] * (ABNORMAL) CBC (01/28/2025 7:14 AM EDT) WBC 2.0(L) 3.8 - 10.8 10E3/uL 01/28/2025 9:10 AM EDT [facility] RBC 3.36(L) 4.20 - 5.80 10E6/uL 01/28/2025 9:10 AM EDT [facility] Hemoglobin 11.5(L) 13.2 - 17.1 g/dL 01/28/2025 9:10 AM EDT [facility] Hematocrit 31.0(L) 38.5 - 50.0 % 01/28/2025 9:10 AM EDT [facility] MCV 92.4 80.0 - 100.0 fL 01/28/2025 9:10 AM EDT [facility] MCH 34.2(H) 27.0 - 33.0 pg 01/28/2025 9:10 AM EDT [facility] MCHC 37.0(H) 32.0 - 36.0 g/dL 01/28/2025 9:10 AM EDT [facility] RDW 14.9 11.0 - 15.0 % 01/28/2025 9:10 AM EDT [facility] Platelets 86(L) 140 - 400 10E3/uL 01/28/2025 9:10 AM EDT [facility] MPV 6.2(L) 7.5 - 11.5 fL 01/28/2025 9:10 AM EDT [facility] Whole Blood 01/28/2025 7:14 AM EDT 01/28/2025 8:22 AM EDT Carlton Hill MD LAB BLOOD ORDERABLES Final Result [facility] [address] * CT Head WO contrast (01/28/2025 [...] Detected Not Detected 01/28/2025 3:11 AM EDT [facility] Vibrio Group (Vibrio cholerae, Vibrio parahaemolyticus) Not Detected Not Detected 01/28/2025 3:11 AM EDT [facility] Yersinia enterocolitica Not Detected Not Detected 01/28/2025 3:11 AM EDT [facility] Shiga toxin 1 Not Detected Not Detected 01/28/2025 3:11 AM EDT [facility] Shiga toxin 2 Not Detected Not Detected 01/28/2025 3:11 AM EDT [facility] Norovirus Not Detected Not Detected 01/28/2025 3:11 AM EDT [facility] Rotavirus Not Detected Not Detected [...] AND STOOLS ORDERABLE S Final Result [facility] [address] [place] [address], [facility] * Respiratory viral panel (01/27/2025 9:30 PM EDT) Adenovirus Not Detected Not Detected 01/28/2025 12:20 AM EDT [facility] Coronavirus (229E,HKU1,NL63,OC 43) Not Detected Not Detected 01/28/2025 12:20 AM EDT [facility] SARS-CoV-2 Not Detected Not Detected 01/28/2025 12:20 AM EDT [facility] Human Metapneumovirus Not Detected Not Detected 01/28/2025 12:20 AM EDT [facility] Human Rhinovirus/Enterov irus Not Detected Not Detected 01/28/2025 12:20 AM EDT [facility] Influenza A Not Detected Not Detected 01/28/2025 12:20 AM EDT [facility] Influenza A H1 Not Detected Not Detected 01/28/2025 12:20 AM EDT [facility] Influenza A/H1-2009 Not Detected Not Detected 01/28/2025 12:20 AM EDT [facility] Influenza A H3 Not Detected Not Detected 01/28/2025 12:20 AM EDT [facility] Influenza B Not Detected Not Detected 01/28/2025 12:20 AM EDT [facility] Parainfluenza 1 Not Detected Not Detected 01/28/2025 12:20 AM EDT [facility] Parainfluenza 2 Not Detected Not Detected 01/28/2025 12:20 AM EDT [facility] Parainfluenza 3 Not Detected Not Detected 01/28/2025 12:20 AM EDT [facility] Parainfluenza 4 Not Detected Not Detected 01/28/2025 12:20 AM EDT [facility] Resp. Syncycial Virus A Not Detected Not Detected 01/28/2025 12:20 AM EDT [facility] Resp. Syncycial Virus B Not Detected Not Detected 01/28/2025 12:20 AM EDT [facility] Chlamydia pneumoniae Not Detected Not Detected 01/28/2025 12:20 AM EDT [facility] Mycoplasma pneumoniae Not Detected Not Detected 01/28/2025 12:20 AM EDT [facility] Comment: The Respiratory Viral-Bacterial Panel [...] results have been sent to the [facility] [place] [facility] in accordance with state requirements. For a fact sheet for healthcare providers, see https://www.fda.gov/media/053662/download. For a fact sheet for patients, see https://www.fda.gov/media/074769/download. Nasopharyngeal Swab NASOPHARYNGEAL STRUCTURE / Unknown 01/27/2025 9:30 PM EDT 01/27/2025 10:20 PM EDT us Shelby Blanco MD BODY FLUIDS AND STOOLS ORDERABLE S Final Result [facility] [address] [place] [address], [facility] * Lactic acid, venous, whole blood (01/27/2025 9:30 PM EDT) Lactate, Shakeel 1.4 0.5 - 1.6 mmol/L 01/27/2025 9:42 PM EDT [facility] Blood, Venous 01/27/2025 9:3 0 PM EDT 01/27/2025 9:39 PM EDT Pamela JACOME LAB BLOOD ORDERABLES Final Res ult Performing Organization Address City/[facility]/ZIP Co de Phone Number [facility] [address] [facility]. [address] * (ABNORMAL) Urinalysis, Microscopic (01/27/2025 8:44 PM EDT) RBC, UA <1 0 - 3 /HPF 01/27/2025 9:32 PM EDT [facility] WBC, UA 1 0 - 5 /HPF 01/27/2025 9:32 PM EDT [facility] Hyaline Casts, UA 75(H) 0 - 2 /LPF 01/27/2025 9:32 PM EDT [facility] Mucus, UA Present(A) None Seen /HPF 01/27/2025 9:32 PM EDT [facility] Urine 01/27/2025 8:44 PM EDT 01/27/2025 9:01 PM EDT Pamela JACOME URINE ORDERABLES Final Result Performing Organization Address [facility] Co de Phone Number [facility] [address] [facility]. [address] * Strep Pneumo-Legionella Urine Antigen (01/27/2025 8:44 PM EDT) Strept Pneumo Ag Negative Negative 01/27/2025 11:12 PM EDT [facility] Legionella Antigen Negative Negative 01/27/2025 11:12 PM EDT [facility] Urine URINE SPECIMEN / Unknown 01/27/2025 8:44 PM EDT 01/27/2025 10:21 PM EDT Narrative [facility] - 01/27/2025 11:12 PM EDT Positive indicates detection of either Streptococcus pneumoniae antigen or Legionella pneumophila serogroup 1 antigen. Negative results do not rule out pneumococcal infection or infection with L. pneumophila serogroup 1, other serogroups of L. pneumophila, or other Legionella species. Shelby Blanco MD URINE ORDERABLES Final Result Performing Organization Address [facility] de Phone Number [facility] [address] * Histoplasma/Blastomyces Ag, EIA, U (01/27/2025 8:44 PM EDT) Histoplasma/Blasto myces Ag Result (Urine) Not Detected Not Detected 01/31/2025 11:06 AM EDT [facility] Comment: No antigen from Histoplasma or Blastomyces detected. False negative results may occur depending on extent of disease, and/or site of infection. Repeat testing on a new specimen if clinically indicated. Histoplasma/Blasto myces Ag Value (Urine) Not Detected ng/mL 01/31/2025 11:06 AM EDT [facility] Comment: ADDITIONAL INFORMATION This test was developed and its performance characteristics determined by [facility] in a manner consistent with CLIA requirements. This test has not been cleared or approved by the U.S. Food and Drug Administration. Test Performed by: [facility] [place] [address] Capper Machine Operator: Kathy Ortiz Ph.D.; CLIA# [id number] Urine URINE SPECIMEN / Unknown 01/27/2025 8:44 PM EDT 01/31/2025 11:06 AM EDT Shelby Blanco MD URINE ORDERABLES Final Result Performing Organization Address [facility] Co de Phone Number [facility] [address] [facility]. [address] * (ABNORMAL) Urinalysis-Macroscopic w/Rfx to Microsco (01/27/2025 8:44 PM EDT) Color, UA Yellow Yellow,Straw 01/27/2025 9:32 PM EDT [facility] Clarity, UA Clear Clear 01/27/2025 9:32 PM EDT [facility] Specific Sun, UA 1.015 1.005 - 1.035 01/27/2025 9:32 PM EDT [facility] pH, UA 5.5 5.0 - 8.0 01/27/2025 9:32 PM EDT [facility] Protein, UA 30(A) Negative mg/dL 01/27/2025 9:32 PM EDT [facility] Glucose, UA Negative Negative mg/dL 01/27/2025 9:32 PM EDT [facility] Ketones, UA 20(A) Negative mg/dL 01/27/2025 9:32 PM EDT [facility] Bilirubin, UA Negative Negative 01/27/2025 9:32 PM EDT [facility] Blood, UA Negative Negative 01/27/2025 9:32 PM EDT [facility] Nitrite, UA Negative Negative 01/27/2025 9:32 PM EDT [facility] Urobilinogen, UA <2.0 0.2 - 1.9 mg/dL 01/27/2025 9:32 PM EDT [facility] Leukocyte Esterase, UA Negative Negative 01/27/2025 9:32 PM EDT [facility] Urine 01/27/2025 8:44 PM EDT 01/27/2025 8:53 PM EDT us Pamela JACOME URINE ORDERABLES Final Result [facility] [address] * Phosphatidylethanol Confirmation, B (01/27/2025 8:20 PM EDT) PETH 16:0/18.1 (POPETH) 446 Cutoff: 10 ng/mL 01/30/2025 9:59 AM EDT [facility] Comment: Phosphatidylethanol (PEth) homologues result [...] Cutoff: 10 ng/mL 01/30/2025 9:59 AM EDT [facility] Comment: PEth 16:0/18:2 (PLPEth) Reference ranges are not well established PEth Interpretation Positive. 01/30 9:59 AM EDT [facility] Comment: ADDITIONAL INFORMATION This report [...] Performed by: [facility] [place] [address] Capper Machine Operator: Kathy Ortiz Ph.D.; CLIA# [id number] Whole Blood 01/27/2025 8:20 PM EDT 01/30/2025 9:59 AM EDT us Shelby Blanco MD LAB BLOOD ORDERABLES Final Resul t [facility] [address] * BK PCR, Blood (Renal Txp and BMT only) (01/27/2025 8:20 PM EDT) BKV IU DNA Quant, Blood Not Detected IU/mL 01/29/2025 1:48 PM EDT [facility] Comment: Beginning August 23, 2021, [facility] has transitioned BK viral load testing from [...] log 10 IU/mL 01/29/2025 1:48 PM EDT [facility] Comment:BKV DNA Not Detected Plasma 01/27/2025 8:20 PM EDT 01/27/2025 9:49 PM EDT us Shelby Blanco MD LAB BLOOD ORDERABLES Final Resul t [facility] [address] [place] [address], [facility] * Histoplasma/Blastomyces Ag, EIA, S (01/27/2025 8:20 PM EDT) Histoplasma/Blasto myces Ag Result (Serum) Not Detected Not Detected 01/30/2025 12:49 PM EDT [facility] Comment: No antigen from Histoplasma or Blastomyces detected. False negative results may occur depending on extent of disease, and/or site of infection. Repeat testing on a new specimen if clinically indicated. Histoplasma/Blasto myces Ag Value (Serum) Not Detected ng/mL 01/30/2025 12:49 PM EDT [facility] Comment: ADDITIONAL INFORMATION This test was developed and its performance characteristics determined by [facility] in a manner consistent with CLIA requirements. This test has not been cleared or approved by the U.S. Food and Drug Administration. Test Performed by: [facility] - [address] [address] Capper Machine Operator: Kathy Ortiz Ph.D.; CLIA# [id number] Serum SERUM SPECIMEN / Unknown 01/27/2025 8:20 PM EDT 01/30/2025 12:49 PM EDT Comment:S us Shelby Blanco MD LAB BLOOD ORDERABLES Final Resul t [facility] [address] [place] [address], [facility] * Fungitell (01/27/2025 8:20 PM EDT) Fungitell Value <31.25 pg/mL 4:19 PM EDT [facility] Reference Value Comment 4:19 PM EDT [facility] Comment:Negative: <60, Posit bradley: >/=60 Clinical Relevance Notes 2024 4:19 PM EDT [facility] Comment: The Fungitell test is [...] Cryptococcus, which produce very low levels of (1,3)-qsuw-O-kwfduw. This test will not detect the zygomycetes, such as Absidia, Blastomyces, Mucor, and Rhizopus, which are not known to produce (1,3)-drzm-M-kioztc. In addition, the yeast phase of Blastomyces dermatitidis produces little (1,3)-vijs-Z-nrwqtr and may not be detected by the assay. Disclaimer: Notes 02/02/2025 4:19 PM EDT [facility] Comment: This test has been cleared or approved for diagnostic use by the U.S. Food and Drug Administration. Performance characteristics were verified by [employer]. Electronically signed by: Comment 02/02/2025 4:19 PM EDT [facility] Comment:Usha Landin Fungitell Result Comment 02/03/20 4:19 PM EDT [facility] Comment:Negative Interpretation Notes 02/02/2025 4:19 PM EDT [facility] Comment: (1,3) Xaby-D-Reazvz was NOT DETECTED in the sample. Reasons for negative results could include the patient being in the early stage of infection before detectable levels of (1,3) Vabm-Q-Lmydxr are present. Clinical diagnosis should be made in the context of the patient's complete medical history. Serum 01/27/2025 8:20 PM EDT 02/02/2025 5:07 PM EDT Narrative [facility] - 02/02/2025 5:07 PM EDT PERFORMED AT: [facility] [address] [place], [place] [id number] UX DEVELOPER DESIGNER: Cyril Porter, PhD PHONE: [phone] us Shelby Blanco MD LAB BLOOD ORDERABLES Final Resul t [facility] [address] * Katie-Schafer Virus (EBV) PCR (01/27/2025 8:20 PM EDT) [facility] EBV DNA, Quantitative PCR Not Detected IU/mL 01/28/2025 10:54 AM EDT [facility] EBV DNA, Log10 See Note log 10 IU/mL 01/28/2025 10:54 AM EDT [facility] Comment: Beginning September 05, 2022, [facility] has transitioned EBV viral load testing to [...] BLOOD ORDERABLES Final Resul t [facility] [address] * Cryptococcus Ag (01/27/2025 8:20 PM EDT) Crypto Ag, Ser Negative Negative 01/27/2025 11:41 PM EDT [facility] Crypto Ag Titer, Ser Not Applicable 01/27/2025 11:41 PM EDT [facility] Serum SERUM SPECIMEN / Unknown 01/27/2025 8:20 PM EDT 01/27/2025 10:04 PM EDT Comment:S Shelby Blanco MD LAB BLOOD ORDERABLES Final Resul t Performing Organization Address City/[facility]/ZIP Co de Phone Number [facility] [address] * Cytomegalovirus (CMV) PCR (01/27/2025 8:20 PM EDT) CMV DNA Qnt Not Detected IU/mL 01/29/2025 12:09 PM EDT [facility] Comment:Test methodology for CMV DNA quantification is an FDA-approved nucleic acid amplification assay. The Lower Limit of Quantitation (LLOQ) and Limit of Detection (LoD) for EDTA plasma is 34.5 IU/mL. The linear range of the assay is 34.5- 10,000,000 IU/mL. The reference range is Not Detected. Log10 CMV Qn DNA PI See Note log 10 IU/mL 01/29/2025 12:09 PM EDT [facility] Comment:CMV DNA not detected Plasma 01/27/2025 8:20 PM EDT 01/27/2025 9:49 PM EDT Shelby Blanco MD LAB BLOOD ORDERABLES Final Resul t [facility] [address] * Fungus culture, blood (Blood) (01/27/2025 8:20 PM EDT) Culture Result No Fungus Isolated At 4 Weeks [facility] Blood SERUM SPECIMEN / Unknown 01/27/2025 8:20 PM EDT 01/27/2025 9:50 PM EDT Comment:S Shelby Blanco MD MICROBIOLOGY - GENERAL ORDERABLE S Final Result [facility] [address] [facility]. [address] * Blood Culture, Acid Fast (Blood) (01/27/2025 8:20 PM EDT) Culture Result Culture Negative For Mycobacteria At 6 Weeks [facility] Blood SERUM SPECIMEN / Unknown 01/27/2025 8:20 PM EDT 01/27/2025 9:50 PM EDT Comment:S Shelby Blanco MD MICROBIOLOGY - GENERAL ORDERABLE S Final Result Performing Organization Address City/[facility]/ZIP Co de Phone Number [facility] [address] [place] [address]. [address] * Aspergillus Ag (01/27/2025 8:20 PM EDT) Aspergillus Ag. 0.03 0.00 - 0.49 Index 01/30/2025 5:54 PM EDT [facility] Serum SERUM SPECIMEN / Unknown 01/27/2025 8:20 PM EDT 01/31/2025 4:23 AM EDT Comment:S Shelby Blanco MD BODY FLUIDS AND STOOLS ORDERABLE S Final Result Performing Organization Address City/[facility]/ZIP Co de Phone Number [facility] [address] [place] [address] * Adenovirus PCR (01/27/2025 8:20 PM EDT) Adenovirus, Quantitative PCR 0 0 - 0 copies/mL 02/03/2025 1:12 PM EDT [facility] Comment: Testing performed by [facility], [address] [place] [address], [place], [place]. This test(s) was developed and its performance characteristics determined and validated by the Department of Pathology and Laboratory Medicine at [facility]. It has not been cleared or [...] ORDERABLES Final Resul t Performing Organization Address City/[facility]/ZIP Co de Phone Number [address] * Blood culture-Peripheral (Blood) (01/27/2025 8:20 PM EDT) Culture Result No Growth After 5 Days [facility] Blood BLOOD SPECIMEN / Unknown 01/27/2025 8:20 PM EDT 01/27/2025 9:57 PM EDT Pamela JACOME MICROBIOLOGY - GENERAL ORDERAB LES Final Result Performing Organization Address City/[facility]/ZIP Co de Phone Number [facility] [address] [place] [address]. [address] * Blood culture-Peripheral (Blood) (01/27/2025 8:20 PM EDT) Culture Result No Growth After 5 Days [facility] Blood BLOOD SPECIMEN / Unknown 01/27/2025 8:20 PM EDT 01/27/2025 9:58 PM EDT Pamela JACOME MICROBIOLOGY - GENERAL ORDERAB LES Final Result [facility] [address] * (ABNORMAL) Lipase (01/27/2025 8:20 PM EDT) Lipase 3(L) 4 - 82 U/L 01/27/2025 9:0 3 PM EDT [facility] Plasma 01/27/2025 8:20 PM EDT 01/27/2025 8:34 PM EDT Pamela JACOME LAB BLOOD ORDERABLES Final Res ult Performing Organization Address City/[facility]/ZIP Co de Phone Number [facility] [address] [facility]. [address] * Hepatic Function Panel (01/27/2025 8:20 PM EDT) Total Bilirubin 0.9 0.0 - 1.5 mg/dL 01/27/2025 9:03 PM EDT [facility] Bilirubin, Direct 0.1 0.0 - 0.4 mg/dL 01/27/2025 9:03 PM EDT [facility] AST 20 13 - 39 U/L 01/27/2025 9:03 PM EDT [facility] ALT 26 7 - 52 U/L 01/27/2025 9:03 PM EDT [facility] Alkaline Phosphatase 55 36 - 125 U/L 01/27/2025 9:03 PM EDT [facility] Total Protein 7.0 6.4 - 8.9 g/dL 01/27/2025 9:03 PM EDT [facility] Albumin 5.0 3.5 - 5.7 g/dL 01/27/2025 9:03 PM EDT [facility] Bilirubin, Indirect 0.8 0.0 - 1.1 mg/dL 01/27/2025 9:03 PM EDT [facility] Plasma 01/27/2025 8:20 PM EDT 01/27/2025 8:34 PM EDT Pamela JACOME LAB BLOOD ORDERABLES Final Res ult [facility] [address] [place] [address], [facility] * (ABNORMAL) Differential (01/27/2025 8:20 PM EDT) Differential Comments See Note 01/27/2025 10:02 PM EDT [facility] Comment: _Platelets Appear Decreased _Platelet Morphology Normal Scan Result PERFORMED 01/27/2025 10:02 PM EDT [facility] Neutrophils Relative 50.9 40.0 - 80.0 % 01/27/2025 10:02 PM EDT [facility] Lymphocytes Relative 39.0 15.0 - 45.0 % 01/27/2025 10:02 PM EDT [facility] Monocytes Relative 7.3 0.0 - 12.0 % 01/27/2025 10:02 PM EDT [facility] Eosinophils Relative 1.3 0.0 - 8.0 % 01/27/2025 10:02 PM EDT [facility] Basophils Relative 1.5(H) 0.0 - 1.0 % 01/27/2025 10:02 PM EDT [facility] nRBC 1(H) 0 - 0 /100 WBC 01/27/2025 10:02 PM EDT [facility] Neutrophils Absolute 1,018(L) 1,520 - 8,640 /uL 01/27/2025 10:02 PM EDT [facility] Lymphocytes Absolute 780 570 - 4,860 /uL 01/27/2025 10:02 PM EDT [facility] Monocytes Absolute 146 0 - 1,296 /uL 01/27/2025 10:02 PM EDT [facility] Eosinophils Absolute 26 0 - 864 /uL 01/27/2025 10:02 PM EDT [facility] Basophils Absolute 30 0 - 108 /uL 01/27/2025 10:02 PM EDT [facility] PLT Morphology Platelet morphology appears normal 01/27/2025 10:02 PM EDT [facility] Whole Blood 01/27/2025 8:20 PM EDT 01/27/2025 8:57 PM EDT Pamela JACOME LAB BLOOD ORDERABLES Final Res ult [facility] [address] [place] [address], [facility] * (ABNORMAL) CBC (01/27/2025 8:20 PM EDT) WBC 2.0(L) 3.8 - 10.8 10E3/uL 01/27/2025 10:02 PM EDT [facility] RBC 3.81(L) 4.20 - 5.80 10E6/uL 01/27/2025 10:02 PM EDT [facility] Hemoglobin 12.7(L) 13.2 - 17.1 g/dL 01/27/2025 10:02 PM EDT [facility] Hematocrit 35.1(L) 38.5 - 50.0 % 01/27/2025 10:02 PM EDT [facility] MCV 92.2 80.0 - 100.0 fL 01/27/2025 10:02 PM EDT [facility] MCH 33.3(H) 27.0 - 33.0 pg 01/27/2025 10:02 PM EDT [facility] MCHC 36.1(H) 32.0 - 36.0 g/dL 01/27/2025 10:02 PM EDT [facility] RDW 14.7 11.0 - 15.0 % 01/27/2025 10:02 PM EDT [facility] Platelets 109(L) 140 - 400 10E3/uL 01/27/2025 10:02 PM EDT [facility] Platelet Estimate Decreased 01/27/2025 10:02 PM EDT [facility] MPV 6.4(L) 7.5 - 11.5 fL 01/27/2025 10:02 PM EDT [facility] Whole Blood 01/27/2025 8:20 PM EDT 01/27/2025 8:57 PM EDT Narrative [facility] - 01/27/2025 10:02 PM EDT Peripheral blood smear was scanned per review criteria approved by the laboratory medical instrument cable fabricator. [facility] BLOOD ORDERABLES Final Res ult [facility] [id number] * Hemoglobin A1c (01/27/2025 8:20 PM EDT) Hemoglobin A1C 4.0 4.0 - 5.6 % 01/27/2025 11:49 PM EDT [facility] Comment: Hemoglobin A1c Interpretation Guidelines: [...] PM EDT 01/27/2025 8:57 PM EDT Narrative [facility] - 01/27/2025 11:49 PM EDT A1C project?->Yes us Pamela JACOME LAB BLOOD ORDERABLES Final Res ult [facility] [address] * Basic metabolic panel (01/27/2025 8:20 PM EDT) Sodium 136 133 - 146 mmol/L 01/27/2025 9:03 PM EDT [facility] Potassium 4.0 3.5 - 5.3 mmol/L 01/27/2025 9:03 PM EDT [facility] Chloride 100 98 - 110 mmol/L 01/27/2025 9:03 PM EDT [facility] CO2 25 21 - 33 mmol/L 01/27/2025 9:03 PM EDT [facility] Anion Gap 11 3 - 16 mmol/L 01/27/2025 9:03 PM EDT [facility] BUN 16 7 - 25 mg/dL 01/27/2025 9:03 PM EDT [facility] Creatinine 1.02 0.60 - 1.30 mg/dL 01/27/2025 9:03 PM EDT [facility] Glucose 93 70 - 100 mg/dL 01/27/2025 9:03 PM EDT [facility] Calcium 9.7 8.6 - 10.3 mg/dL 01/27/2025 9:03 PM EDT [facility] Osmolality, Calculated 283 278 - 305 mOsm/kg 01/27/2025 9:03 PM EDT [facility] EGFR >90 01/27/2025 9:03 PM EDT [facility] Comment: As of 2021, the [...] PA LAB BLOOD ORDERABLES Final Res ult [facility] [address] [place], [place] [address] * X-ray Chest PA and Lateral [...] Diarrhea of presumed infectious origin- Primary Immunosuppression ([facility]) documented in this encounter Administered Medications Inactive [...] Gladis Tello RN)1528 (Given - Provider: Gladis Telol RN)2352 (Given - Provider: Vandana Vilchis RN) 0933 (Given - Provider: Elba Vargas RN)1235 (Given - Provider: Elba Vargas RN) heparin (porcine) injection 5,000 Units 5,000 Units, Subcutaneous, Every 8 hours scheduled (3 times per day), First dose on Sun01/27/25 at 2259 0002 (Not Given - Provider: Marixa Mock RN - Reason: Patient/family refused)0350 (Not Given - Provider: Marixa Mokc RN - Reason: Patient/family refused)1229 (Not Given [...] documented as of this encounter Care Teams Breaker Oiler Relationship Specialty Start Date End Date Enedina Mcguire NP [address] [place] [address] PCP - General Internal Medicine 10/05/24 Maureen Pantoja, RN Txp Post Coordinator Transplant Hepatology 10/28/24 documented as of this encounter
--- OUTSIDE RECORDS SUMMARY | 2025-02-12 10:50 | XMS_ITS | Encounter Summary ---
Author Organization [facility] Address [address] [place] [address] Care Team Providers Care Longwall Foreman Name Role Phone Enedina Mcguire NP Primary Care Provider + [phone] Maureen Pantoja RN Unavailable Unavail able Source [...] release of HIV test results or diagnoses. [id number] Reason for Referral * Diagnostic Lab (Routine) - New Request Specialty Diagnoses / Procedures Referred By Shane hernadez Referred To Contact Diagnoses Liver transplant recipient (CMS-HCC) Kidney transplant recipient Immunosuppression ([facility]) Viral disease exposure Procedures BK Virus Quantitative by PCR, Blood [facility] Liver Transplant at [address] [address] Phone: tel: fax: Referral ID Status Reason Start Date Expiration Date V isits Requested Visits Authorized [id number] New Request 02/12/2025 08/11/2025 1 1 * Diagnostic Lab (Routine) - New Request Specialty Diagnoses / Procedures Referred By Contac t Referred To Contact Diagnoses Liver transplant recipient ([facility]) Kidney transplant recipient Immunosuppression ([facility]) Viral disease exposure Procedures BK Virus Quantitative by PCR, Blood [facility] Liver Transplant at [address] [address] Phone: tel: fax: Referral ID Status Reason Start Date Expiration Date V isits Requested Visits Authorized [id number] New Request 02/12/2025 08/11/2025 1 1 * Diagnostic Lab (Routine) - New Request Specialty Diagnoses / Procedures Referred By Contac t Referred To Contact Diagnoses Liver transplant recipient (CMS-HCC) Kidney transplant recipient Immunosuppression (CMS-HCC) Viral disease exposure Procedures BK Virus Quantitative by PCR, Blood [facility] Liver Transplant at [address] [address] Phone: tel: fax: Referral ID Status Reason Start Date Expiration Date V isits Requested Visits Authorized [id number] New Request 02/12/2025 08/11/2025 1 1 Reason for Visit * Reason Comments Liver Transplant Follow-up Encounter Details Date Type Department Care Team (Late st Contact Info) Description 02/12/2025 10:50 AM EDT Office Visit [facility] Liver Transplant at [address] [address] Chris Orosco MD [address] [place] [phone] Liver transplant recipient (CMS-HCC) (Primary Dx); [...] the past 12 months has th e [employer], oil, or water [employer] threatened to shut off services in your [...] Chris Orosco MD, MPH Transplant hepatology Pager: [phone] * Maureen Pantoja RN - 02/12/2025 10:50 [...] of systemic steroid therapy Liver transplant recipient ([facility]) Kidney transplant recipient Immunosuppressive management encounter following liver transplant ([facility]) Encounter for monitoring tacrolimus therapy Vitamin D deficiency 1 Occurrences starting 02/12/2025 until 08/27/2025 Vitamin D 25 hydroxy Lab Routine History of systemic steroid therapy Vitamin D deficiency 1 Occurrences starting 02/12/2025 until 08/27/2025 Hepatic Function Panel Lab Routine S/P liver transplant ([facility]) Immunosuppression ([facility]) weekly for 52 Occurrences starting 02/12/2025 until 02/12/2026 Renal Function Panel w/EGFR Lab Routine S/P liver transplant ([facility]) Immunosuppression ([facility]) weekly for 52 Occurrences starting 02/12/2025 until 02/12/2026 CBC Lab Routine S/P liver transplant ([facility]) Immunosuppression ([facility]) weekly for 52 Occurrences starting 02/12/2025 until 02/12/2026 Differential Lab Routine S/P liver transplant ([facility]) Immunosuppression ([facility]) weekly for 52 Occurrences starting 02/12/2025 until 02/12/2026 Tacrolimus level Lab Routine S/P liver transplant ([facility]) Immunosuppression ([facility]) weekly for 52 Occurrences starting 02/12/2025 until 02/12/2026 Cytomegalovirus DNA, Quant, RT PCR Lab Routine S/P liver transplant ([facility]) Immunosuppression ([facility]) Viral disease exposure Expected: 02/24/2025 (Approximate), Expires: 08/27/2025 Cytomegalovirus DNA, Quant, RT PCR Lab Routine S/P liver transplant ([facility]) Immunosuppression ([facility]) Viral disease exposure Expected: 03/10/2025 (Approximate), Expires: 08/27/2025 BK Virus Quantitative by PCR, Blood Lab Routine Liver transplant recipient ([facility]) Kidney transplant recipient Immunosuppression ([facility]) Viral disease exposure Expected: 04/28/2025 (Approximate), Expires: 08/13/2026 BK Virus Quantitative by PCR, Blood Lab Routine Liver transplant recipient ([facility]) Kidney transplant recipient Immunosuppression ([facility]) Viral disease exposure Expected: 07/27/2025 (Approximate), Expires: 08/27/2025 BK Virus Quantitative by PCR, Blood Lab Routine Liver transplant recipient ([facility]) Kidney transplant recipient Immunosuppression ([facility]) Viral disease exposure Expected: 10/27/2025 (Approximate), Expires: 08/13/2026 Phosphatidylethanol Confirmation, B Lab Routine [place] Kidney transplant recipient Alcohol use disorder weekly for 52 Occurrences starting 02/12/2025 until 02/12/2026 Magnesium Lab Routine Liver transplant recipient ([facility]) Kidney transplant recipient Immunosuppressive management encounter following liver transplant ([facility]) weekly for 52 Occurrences starting 02/12/2025 until 02/12/2026 Post Kidney Transplant Urine Culture Microbiology Routine Liver transplant recipient ([facility]) Kidney transplant recipient Immunosuppressive management encounter following liver transplant ([facility]) weekly for 52 Occurrences starting 02/12/2025 until 08/13/2026 Urinalysis w/Rfl to Microscopic Lab Routine Kidney transplant recipient Immunosuppressive management encounter following liver transplant ([facility]) weekly for 52 Occurrences starting 02/12/2025 until 08/13/2026 Protein / creatinine ratio, urine Lab Routine Kidney transplant recipient Immunosuppressive management encounter following liver transplant ([facility]) weekly for 52 Occurrences starting 02/12/2025 until 08/13/2026 Microalbumin (Random UR) Lab Routine Kidney transplant recipient Immunosuppressive management encounter following liver transplant [place] weekly for 52 Occurrences starting 02/12/2025 until 08/13/2026 documented as of this encounter Visit Diagnoses Diagnosis Liver transplant [place] Primary History of systemic steroid therapy Personal history of systemic steroid therapy Kidney transplant recipient Immunosuppressive management encounter following liver transplant [place] Encounter for monitoring tacrolimus therapy Vitamin D deficiency Unspecified vitamin D deficiency Encounter for therapeutic drug monitoring S/P liver transplant [place] Hypomagnesemia Disorders of magnesium metabolism Hypertension, unspecified type Gastroesophageal reflux disease, unspecified whether esophagitis present Alcohol use disorder Immunosuppression [place] Viral disease exposure Contact with or exposure to other viral diseases documented in this encounter Additional Health Concerns Infection Onset Date Last Indicated Resolved Time C. difficile 01/28/2025 01/28/2025 Assessment Noted Time PHQ-9 Depression Total Score: 2 12/11/19 25 9:00 AM EDT documented as of this encounter Care Teams Longwall Foreman Relationship Specialty Start Date End Date Enedina Mcguire NP [address] [place] [address] PCP - General Internal Medicine 10/05/24 Maureen Pantoja, ЮЛИЯ Txp Post Coordinator Transplant Hepatology 10/28/24 documented as of this encounter
--- OUTSIDE RECORDS SUMMARY | 2025-02-17 15:15 | XMS_ITS | Encounter Summary ---
Author Organization [facility] Address [address] [place] [address] Care Team Providers Care Drupal Web Developer Name Role Phone Enedina Mcguire APRN Primary Care Provider + Reason for Visit * Reason Comments Follow-up Patient following up after liver and kidney transplant. Patient stated he's doing good. Encounter Details Date Type Department Care Team (Late st Contact Info) Description 02/17/2025 3:15 PM EDT Office Visit [facility] INTERNAL MEDICINE [address] [place] [address] Enedina Mcguire APRN [address] [place] [address] Encounter for follow-up (Primary Dx); [...] alcohol) 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 [facility] Utilities Answer Date Recorded In the past 12 months has [employer], gas, oil, or water [employer] threatened to shut off services in your [...] Measure Score 0 10/02/2022 [facility] of Occupat ional Health - Occupational [...] and liver. Patient continues to follow under [facility]. Letter was sent in October regarding instructions recommendations for this patient. As stated at about 3 months posttransplant patient will be transition to one of our transplant teaching fellow group for continuity where they willmanage his liver perspective. liver transplant patient is assigned a posttransplant nurse coordinator Patient did request an updated refill of his once weekly vitamin D supplement Overall patient states he is feeling well. He continues to follow with [facility] about once every 2 months and does have frequent blood work completed Patient states that his liver transplant specialist did provide him clearance to restart on testosterone therapy. Will reach out to [facility] for further confirmation regarding this. Last [...] Surgeon: Presley Montes De Oca MD; Location: [facility]; Service: Gastroenterology; Laterality: N/A; ENDOSCOPY N/A 07/29/2022 Procedure: ESOPHAGOGASTRODUODENOSCOPY; Surgeon: Presley Montes De Oca MD; Location: [facility]; Service: Gastroenterology; Laterality: N/A; WITH APC [...] , Rfl: vitamin D (ERGOCALCIFEROL) 1.25 MG (70614 UT) capsule capsule, Take 1 capsule by [...] deficiency - vitamin D (ERGOCALCIFEROL) 1.25 MG (43327 UT) capsule capsule; Take 1 capsule by [...] will reach out to his provider at [facility] for further confirmation of clearance of [...] of this note may be an electronic technical services librarian/translation of spoken language to printed textusing the PerBlueation System. documented in this encounter Plan of Treatment Upcoming Encounters Date Type Department Care Team (Late st Contact Info) Description 05/18/2025 2:30 PM EST Office Visit [facility] INTER[facility] MEDICINE [address] [place] [phone] Enedina Mcguire APRN [address] [place] [address] 05/21/2025 12:30 PM EST Office Visit [facility] PAIN MANAGEMENT [address] [phone] Vazquez Christie PA-C [address] [place] [address] [place], [place] [phone] Scheduled Orders Name Type Priority Associated Diagnoses [...] documented as of this encounter Care Teams Drupal Web Developer Relationship Specialty Start Date End Date Enedina Mcguire APRN [address] [place] [address] PCP - General Nurse Practitioner 10/27/24 documented as of this encounter
--- OUTSIDE RECORDS SUMMARY | 2025-02-19 07:45 | XMS_ITS | Encounter Summary ---
Author Organization [facility] Address [address] [place] [address] Care Team Providers Care Precision Instrument Maker Name Role Phone Enedina Mcguire APRN Primary Care Provider + Reason for Visit * Surgical (Routine) - Closed Specialty Diagnoses / Procedures Referred By Shane t Referred To Contact Pain Medicine Diagnoses Cervical radiculopathy Procedures External Facility Surgical/Procedural Request Tye Song MD [address] [place] [address] Phone: tel: fax: [facility] AT [address] [address] Phone: tel: fax: Referral ID Status Reason Start Date Expiration Date V isits Requested Visits Authorized [id number] Closed Other 01/08/2025 04/09/2026 1 1 Encounter Details Date Type Department Care Team (Late st Contact Info) Description 02/19/2025 7:45 AM EDT Outside Facility Service [facility] PAIN MANAGEMENT [address] [address] Tye Song MD [address] [place] [address] Social History Tobacco Use Types Packs/Day Years Used Date Smoking Tobacco: Former Cigarettes 4 20 Passive Smoke Exposure: Past Smokeless Tobacco: Current Comments:MARIJUANA USE ABOUT 2X PER WEEK - reports no use 03-25-2025 Alcohol Use Standard Drinks/Week Comments Not Currently 0 (1 standard drink = 0.6 oz pure alcohol) 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 [facility] Utilities Answer Date Recorded In the [...] [facility] - Occupational Stress Questionnaire [...] Visit [facility] INTERNAL MEDICINE [address] [place] [address] Enedina Mcguire, GROUND WATER TECHNICIAN [address] [place], [place] [id number] 05/21/2025 12:30 PM EST Office Visit [facility] PAIN MANAGEMENT 3000 [facility] 330 [place] [address] Vazquez Christie PA-C 1760 [facility] [address] [place] [address] documented as of this encounter Visit Diagnoses Not on filedocumented in this encounter Additional Health Concerns Assessment Noted Time PHQ-2 Depression Total Score: 1 12/31/19 24 3:25 PM EDT documented as of this encounter Care Teams Precision Instrument Maker Relationship Specialty Start Date End Date Enedina Mcguire APRN [address] [place] [address] PCP - General Nurse Practitioner 10/27/24 documented as of this encounter
--- OUTSIDE RECORDS SUMMARY | 2025-02-25 10:50 | XMS_ITS | Encounter Summary ---
Author Organization [address] [address] Care Team Providers Care Field Crop Ii Farmworker Name Role Phone Enedina Mcguire NP Primary Care Provider + [phone] Maureen Pantoja RN Unavailable Unavail able Source [...] release of HIV test results or diagnoses. [id number] Reason for Referral * Physician/SAWYER (Routine) - Denied Specialty Diagnoses / Procedures Referred By Shane t Referred To Contact Pain Medicine Diagnoses Kidney transplant recipient Neck pain with history of cervical spinal surgery S/P liver transplant ([facility]) [facility] Kidney Transplant at [address] [address] Phone: tel: fax: Referral ID Status Reason Start Date Expiration Date Visits Re quested Visits Authorized [id number] Denied 02/25/2025 08/24/2025 1 0 Scheduling Instructions For appointments, please call [phone]. Reason for Visit * Reason Comments Kidney Transplant Follow-up Encounter Details Date Type Department Care Team ([facility] Contact Info) Description 02/25/2025 10:50 AM EDT Office Visit [facility] Kidney Transplant at [facility] [address] [facility] [address] [place] [phone] Carlton Wright MD [address], [facility] [address] [place] [phone] Kidney transplant recipient (Primary Dx); Neck pain with history of cervical spinal surgery; S/P liver transplant ([facility]) Social History Tobacco Use Types Packs/Day [...] the past 12 months has th e [employer], [employer], [employer], or water [employer] threatened to shut off services in your [...] Resource Strain: Low Risk (07/09/2024) Received from [facility] Overall Financial Resource Strain (CARDIA) [...] No Physical Activity: Unknown (07/14/2024) Received from [facility] Exercise Vital Sign Days of Exercise per Week: Patient unable to answer Minutes of Exercise per Session: Not on file Stress: Patient Unable To Answer (07/14/2024) Received from [facility] - Occupational Stress Questionnaire Feeling of Stress : Patient unable to answer Social Connections: Patient Unable To Answer (07/14/2024) Received from [facility] Social Connection and Isolation Panel [...] Results Component Value Date PTH 36.0 10/25/2024 DGWO49I 7.1 (L) 10/08/2024 Hemoglobin A1C: Lab Results [...] as of this encounter Care Teams Field Crop Ii Farmworker Relationship Specialty Start Date End Date Enedina Mcguire NP [address] [place] [address] PCP - General Internal Medicine 10/05/24 Maureen Pantoja, ЮЛИЯ Txp Post Coordinator Transplant Hepatology 10/28/24 documented as of this encounter
--- OUTSIDE RECORDS SUMMARY | 2025-03-03 13:45 | XMS_ITS | Encounter Summary ---
Author Organization [facility] Address [address] [place] [address] Care Team Providers Care Crew Member Name Role Phone Enedina Mcguire APRN Primary Care Provider + Reason for Referral * Surgical (Routine) - Authorized Specialty Diagnoses / Procedures Referred By Shane hernadez Referred To Contact Diagnoses Occipital neuralgia of right side Procedures External Facility Surgical/Procedural Request Vazquez Christie PA-C [address] [place] [address] Phone: tel: fax: [facility] 3000 [facility] 110 [place] [address] Phone: tel: fax: Referral ID Status Reason Start Date Expiration Date Visits Requested Visits Authorized [id number] Authorized Continuity of Care 03/03/2025 06/02/2026 1 1 Reason for Visit * Reason Comments Follow-up Neck Pain Encounter Details Date Type Department Care Team (Late st Contact Info) Description 03/03/2025 1:45 PM EDT Office Visit [facility] PAIN MANAGEMENT 3000 [facility] 330 [place] [address] Vazquez Christie PA-C [address] [place] [address] Occipital neuralgia of right side (Primary Dx); [...] alcohol) 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 [facility] Utilities Answer Date Recorded In the past 12 months has [employer], gas, oil, or water [employer] threatened to shut off services in your [...] 10/02/2022 [facility] of Occupat ional [facility] - Occupational Stress Questionnaire Answer Date Recorded [...] EDT Referring Physician: Enedina Mcguire APRN [address] [place] [address] Primary Physician: Enedina Mcguire APRN CHIEF COMPLAINT [...] Surgeon: Presley Montes De Oca MD; Location: [facility]; Service: Gastroenterology; Laterality: N/A; ENDOSCOPY N/A 07/29/2022 Procedure: ESOPHAGOGASTRODUODENOSCOPY; Surgeon: Presley Montes De Oca MD; Location: [facility]; Service: Gastroenterology; Laterality: N/A; WITH APC [...] Rfl: 0 vitamin D (ERGOCALCIFEROL) 1.25 MG (53637 UT) capsule capsule, Take 1 capsule by [...] None indicated 9. Records: Kristofer reviewed; [facility] notes reviewed 10. Lifestyle goals: Follow-up 2 months [facility] Pain Management Vazquez Christie PA-C documented in this encounter Plan of Treatment Upcoming Encounters Date Type Department Care Team (Late st Contact Info) Description 05/18/2025 2:30 PM EST Office Visit [facility] INTERNAL MEDICINE [address] [place] [address] Enedina Mcguire, BISTRO SERVER [address] [place] [address] [phone] 05/21/2025 12:30 PM EST Office Visit [facility] PAIN MANAGEMENT [address] [address] Vazquez Christie PA-C 1760 [facility] 302 [place] [phone] Scheduled Orders Name Type Priority Associated Diagnoses [...] documented as of this encounter Care Teams Crew Member Relationship Specialty Start Date End Date Enedina Mcguire APRN [address] [place] [address] PCP - General Nurse Practitioner 10/27/24 documented as of this encounter
--- OUTSIDE RECORDS SUMMARY | 2025-03-13 14:27 | XMS_ITS | Encounter Summary ---
[facility] Organization [facility] Address [address] [place] [address] Care Team Providers Care Architectural Draftsperson Name Role Phone Enedina Mcguire APRN Primary Care Provider + Encounter Details Date Type Department Care Team (Late st Contact Info) Description 02/19/2025 Documentation [facility] PAIN MANAGEMENT [address] [address] Tye Song MD [address] [place] [phone] Social History Tobacco Use Types Packs/Day Years Used Date Smoking Tobacco: Former Cigarettes 4 20 Passive Smoke Exposure: Past Smokeless Tobacco: Current Comments:MARIJUANA USE ABOUT 2X PER WEEK - reports no use 08-05-2024 Alcohol Use Standard Drinks/Week Comments Not Currently 0 (1 standard drink = 0.6 oz pure alcohol) 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 [facility] Utilities Answer Date Recorded In the past 12 months has [employer], [employer], oil, or water [employer] threatened to shut off services in your [...] Depression Severity Measure Score 0 10/02/2022 [facility] - Occupational Stress Questionnaire Answer Date [...] GED or equivalent No 07/09/2024 Preferred Language Chadian 07/09/2024 PHQ-2 Answer Date Recorded Patient Health Questionnaire-9 Score 6 01/01/2025 Sex and Gender Information Value Date Recorded Sex Assigned at Male 08/20/2024 8:28 PM EDT Legal Sex Male 7:45 AM EDT Gender Identity Not on file Sexual Orientation Not on file documented as of this encounter Progress Notes * Tye Song MD - 02/19/2025 9:31 AM EDT [facility] [address] [place] [address] DATE OF SERVICE: 02/19/2025 PROCEDURE: Fluoroscopically-guided bilateral [...] schedule #2 medial branch block ADDITIONAL NOTES: [facility] Pain Management Tye Song MD Codes: [id number] documented in this encounter Plan of Treatment Upcoming Encounters Date Type Department Care Team (Late st Contact Info) Description 05/18/2025 2:30 PM EST Office Visit [facility] INTERNAL MEDICINE [address] [place] [address] Enedina Mcguire, RAMBO [address] [place] [address] 05/21/2025 12:30 PM EST Office Visit [facility] PAIN MANAGEMENT [address] [address] Vazquez Christie PA-C 1760 [facility] [address] [place] [address] documented as of this encounter Visit Diagnoses Not on filedocumented in this encounter Additional Health Concerns Assessment Noted Time PHQ-2 Depression Total Score: 1 12/31/19 24 3:25 PM EDT documented as of this encounter Care Teams Architectural Draftsperson Relationship Specialty Start Date End Date Enedina Mcguire APRN [address] [place] [address] PCP - General Nurse Practitioner 10/27/24 documented as of this encounter
--- OUTSIDE RECORDS SUMMARY | 2025-03-13 14:27 | XMS_ITS | Encounter Summary ---
Author Organization [facility] Address [address] [place] [address] Care Team Providers Care Refinery Operator Helper Crude Unit Name Role Phone Enedina Mcguire NP Primary Care Provider + [phone] Maureen Pantoja RN Unavailable Unavail able Chris Orosco MD Unavailable [phone] Source Comments This information has been disclosed [...] release of HIV test results or diagnoses. [id number] Encounter Details Date Type Department Care Team (Late st Contact Info) Description 02/26/2025 Chart Note [facility] [place] [id number] [address] Marlene Ro MA 02/24 Labs entered from [facility] Social History Tobacco Use Types Packs/Day Years Used Date Smoking Tobacco: Former Cigarettes Smokeless Tobacco: Current Alcohol Use Standard Drinks/Week Comments Yes 0 (1 standard drink = 0.6 oz pure alcohol) History of alcohol abuse, reports no use in 3 week- typically endorses use as 4 glasses of wine a days Utilities Answer Date Recorded In the past 12 months has [employer], gas, oil, or water company threatened to [...] were not included. 02/24 Labs entered from [facility] documented in this encounter Plan of [...] * (ABNORMAL) Magnesium (02/24/2025 1:03 PM EDT) [facility] Magnesium 1.2(A) 1.6 - 2.4 mg/dL Plasma Narrative Resulting Agency Comment [facility] Result [facility] LAB BLOOD ORDERABLES Denisse l Result * (ABNORMAL) Renal Function Panel w/o EGFR (02/24/2025 1:03 PM EDT) [facility] Glucose 121 BUN 18 CO2 26(A) 13 - 22 mmol/L Creatinine 1.00 Potassium 4.1 Sodium 140 Chloride 99 Phosphorus 4.6 2.5 - 4.9 mg/dL Calcium 9.4 EGFR 82 mg/dL Albumin 4.7 3.5 - 5.0 g/dL Blood Narrative Resulting Agency Comment [facility] Result [facility] LAB BLOOD ORDERABLES Denisse l Result * Creatinine, urine, random (02/24/2025 1:03 PM EDT) [facility] Creatinine, Urine 96 Urine Narrative Resulting Agency Comment [facility] Result [facility] URINE ORDERABLES Final Re sult * (ABNORMAL) Urinalysis w/Rfl to Microscopic (02/24/2025 1:03 PM EDT) [facility] Glucose, UA Negative Negative Ketones, UA Negative Negative Blood, UA Negative Negative Bilirubin, UA Negative Negative Urobilinogen, UA Normal Normal Protein, UA 1+(A) Negative pH, UA 6.0 4.5 - 8.0 Specific Gwinner, UA 1.020 1.005 - 1.030 Clarity, UA Clear Clear Color, UA Yellow Light Yellow, Yellow Urine Narrative Resulting Agency Comment [facility] Result [facility] Provider URINE ORDERABLES Final [...] 10^3/mL Blood Narrative Resulting Agency Comment [facility] Result [facility] Provider LAB BLOOD ORDERABLES Denisse l Result * Urine Protein, Tot, Random (w/o Creat) (02/24/2025 1:03 PM EDT) Total Protein, Ur 63.0 Urine Narrative Resulting Agency Comment [facility] [place] Result [facility] Provider URINE ORDERABLES Final Re sult * Hepatic Function Panel (02/24/2025 1:03 PM EDT) Bilirubin, Direct 0.5 Bilirubin, Indirect 0.4 Alkaline Phosphatase 184 ALT 52 AST 71 Total Bilirubin 0.9 Total Protein 6.8 Plasma Narrative Resulting Agency Comment [facility] Result [facility] Provider LAB BLOOD ORDERABLES Denisse l Result * Urine culture (02/24/2025 1:03 PM EDT) Urine Culture, Comprehensive no growth URINE SPECIMEN / Unknown Narrative Resulting Agency Comment [facility] us Historical Provider MICROBIOLOGY - GENERAL OR DERABLES Final Result documented in this encounter Visit Diagnoses Not on filedocumented in this encounter Additional Health Concerns Infection Onset Date Last Indicated Resolved Time C. difficile 01/28/2025 01/28/2025 Assessment Noted Time PHQ-9 Depression Total Score: 2 12/11/19 25 9:00 AM EDT documented as of this encounter Care Teams Refinery Operator Helper Crude Unit Relationship Specialty Start Date End Date Enedina Mcguire NP [address] [place] [address] PCP - General Internal Medicine 10/05/24 Maureen Pantoja, ЮЛИЯ Txp Post Coordinator Transplant Hepatology 10/28/24 Chris Orosco MD [address] [place] [address] [address] [place] [address] Consulting Physician Transplant Hepatology 02/26/25 documented as of this encounter
--- OUTSIDE RECORDS SUMMARY | 2025-03-13 14:27 | XMS_ITS | Encounter Summary ---
[facility] Address [address] [place] [address] Care Team Providers Care Rig Builder Helper Name Role Phone Enedina Mcguire APRN Primary Care Provider + Reason for Visit * Reason Onset Date Comments Results 02/20/2025 Encounter Details Date Type Department Care Team ([facility] st Contact Info) Description 02/20/2025 Telephone [facility] INTERNAL MEDICINE [address] [place] [address] Enedina Mcguire APRN [address] [place] [address] Results Social History Tobacco Use Types Packs/Day Years Used Date Smoking Tobacco: Former Cigarettes 4 20 Passive Smoke Exposure: Past Smokeless Tobacco: Current Comments:MARIJUANA USE ABOUT 2X PER WEEK - reports no use 08-05-2024 Alcohol Use Standard Drinks/Week Comments Not Currently 0 (1 standard drink = 0.6 oz pure alcohol) 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 [facility] Utilities Answer Date Recorded In the past [address] [employer] [address] [employer], [employer], oil, or water [employer] threatened to shut off services in your [...] Depression Severity Measure Score 0 10/02/2022 [facility] - Occupational Stress Questionnaire [...] - 02/20/2025 2:42 PM EDT Pt sent Quotefish message as well, message sent to Enedina on results * Telephone Encounter - Liliana Glez RegSched Rep - 02/20/2025 1:34 PM EDT Caller: Julien Anderson Relationship: Self Best call back number: [phone] What test was performed: TESTOSTERONE TEST When [...] [facility] INTERNAL MEDICINE [address] [place] [address] Enedina Mcguire, INTERNAL RECRUITER [address] [place] [address] 05/21/2025 12:30 PM EST Office Visit [facility] PAIN MANAGEMENT [address] [facility] [address] [place] [address] Vazquez Christie PA-C [address] [facility] [address] [place] [address] documented as of this encounter Visit Diagnoses Not on filedocumented in this encounter Additional Health Concerns Assessment Noted Time PHQ-2 Depression Total Score: 1 12/31/19 24 3:25 PM EDT documented as of this encounter Care Teams Rig Builder Helper Relationship Specialty Start Date End Date Enedina Mcguire APRN [address] [place] [address] PCP - General Nurse Practitioner 10/27/24 documented as of this encounter
--- OUTSIDE RECORDS SUMMARY | 2025-03-13 14:27 | XMS_ITS | Encounter Summary ---
Author Organization [facility] Address [address] [place] [address] Care Team Providers Care Roller Printer Name Role Phone Enedina Mcguire APRN Primary Care Provider + Reason for Visit * Reason Onset Date Comments SONG- INJECTION SCHEDULE 02/11/2025 Encounter Details Date Type Department Care Team (Late st Contact Info) Description 02/11/2025 Telephone [facility] PAIN [facility] [address] [address] Tye Song MD [address] [address] SONG- INJECTION SCHEDULE Social History Tobacco Use Types Packs/Day Years Used Date Smoking Tobacco: Former Cigarettes 4 20 Passive Smoke Exposure: Past Smokeless Tobacco: Current Comments:MARIJUANA USE ABOUT 2X PER WEEK - reports no use 08-05-2024 Alcohol Use Standard Drinks/Week Comments Not Currently 0 (1 standard drink = 0.6 oz pure alcohol) 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 [facility] Utilities Answer Date Recorded In the past 12 months has [employer], gas, oil, or water [employer] threatened to shut off services in [...] Brief Depression Severity Measure Score 0 10/02/2022 [facility] - Occupational Stress Questionnaire [...] GED or equivalent No 07/09/2024 Preferred Language South African 07/09/2024 PHQ-2 Answer Date Recorded Patient Health [...] JULIEN Relationship to Patient: SELF Phone Number: [phone] Reason For Call: PATIENT CALLING TO GET BACK ON THE SCHEDULE FOR HIS INJECTIONS documented in this encounter Plan of Treatment Upcoming Encounters Date Type Department Care Team (Late st Contact Info) Description 05/18/2025 2:30 PM EST Office Visit [facility] INTERNAL MEDICINE [address] [place] [phone] Enedina Mcguire, MACHINE STRIPPER [address] [place] [address] 05/21/2025 12:30 PM EST Office Visit [facility] PAIN MANAGEMENT 3000 [facility] 330 [place] [address] Vazquez Christie PA-C [address] [facility] [address] [place] [address] documented as of this encounter Visit Diagnoses Not on filedocumented in this encounter Additional Health Concerns Assessment Noted Time PHQ-2 Depression Total Score: 1 12/31/19 24 3:25 PM EDT documented as of this encounter Care Teams Roller Printer Relationship Specialty Start Date End Date Enedina Mcguire APRN [address] [place] [address] PCP - General Nurse Practitioner 10/27/24 documented as of this encounter
--- OUTSIDE RECORDS SUMMARY | 2025-03-13 14:27 | XMS_ITS | Encounter Summary ---
Author Organization [facility] Address [address] [place] [address] Care Team Providers Care Fork Lift Technician Name Role Phone Enedina Mcguire NP Primary Care Provider + [phone] Maureen Pantoja RN Unavailable Unavail able Chris Orosco MD Unavailable [phone] Source Comments This information has been disclosed [...] release of HIV test results or diagnoses. [id number] Reason for Visit * Reason Comments Medication Refill Encounter Details Date Type Department Care Team (Late st Contact Info) Description 02/25/2025 Refill [facility] Liver Transplant at [address] [address] Lydia Sanchez MD [address] [place] [address] Liver[place] [address] Encounter for therapeutic drug monitoring; S/P liver transplant ([facility]); Hypomagnesemia; Kidney transplant recipient; Hypertension, unspecified type; [...] the past 12 months has th e [employer], [employer], oil, or water [employer] threatened to shut off services in [...] documented as of this encounter Care Teams Fork Lift Technician Relationship Specialty Start Date End Date Enedina Mcguire NP [address] [place] [address] PCP - General Internal Medicine 10/05/24 Maureen Pantoja, RN Txp Post Coordinator Transplant Hepatology 10/28/24 Chris Orosco MD [address] [place] [address] 3[address] [place] [address] Consulting Physician Transplant Hepatology 02/26/25 documented as of this encounter
--- OUTSIDE RECORDS SUMMARY | 2025-03-13 14:27 | XMS_ITS | Data Portability ---
Author Organization [facility],, Main Office Address [address] [place] [address] Assessment No assessment recorded. Plan of Treatment [...] Available No t Available BD Regular Bevel [place] 18 gauge x 1 active Not Available [...] Updated DateTime 3 193.04 cm 29.1 kg/m2 203098. 58 g 112 /min 97.7 [degF] 141/84 mm[Hg] [facility], 3 13:14:11 Date Recorded Body height Body mass index (BMI) Body weight Heart rate Body temperature Systolic And Diastolic Provider Name and Address Organization Details Last Updated DateTime 4 193.04 cm 30.4 kg/m2 745853. 09 g 92 /min 97.5 [degF] 176/104 mm[Hg] [facility], 4 14:06:31 Date Recorded Body temperature Provider Name a nd Address Organization Details Last Updated DateTime 12/27/2020 99.5 [degF] Cuca Strickland [facility], 12/27/2020 13:41:33 Date Recorded Body weight Heart rate Body temperature Systolic And Diastolic Provider Name and Address Organization Details Last Updated DateTime 04/03/2022 304768.95 g 93 /min 97.6 [degF] 114/83 mm[Hg] Ashley Wallace [facility], 04/03/2022 14:42:57 Social History None recorded. Functional Status None recorded. Mental Status None recorded. Family History Nothing Reported. Medical History No medical history recorded. Past Encounters Encounter ID Performer Location Encounter Start Date Encounter Closed Date Diagnosis/Indication Diagnosis SNOMED-CT Code Diagnosis ICD10 Code Diagnosis IMO Codes Diagnosis Note [id number] Yung Felipe DO Main Office [address] [place] [address] 12/27/2020 13:24:24 12/27/2020 14:00:19 Evaluation of semen fertility 915700911 N46.9 semen analysis [id number] Yung Felipe DO Main Office [address] [place] [address] 07/04/2021 14:47:56 07/04/2021 16:00:05 Evaluation of semen fertility 829724753 N46.9 semen analysis [id number] Yung Felipe DO Main Office [address] [facility] [place] [address] 05/31/2022 13:04:00 05/31/2022 13:50:01 Evaluation of semen fertility [id number] N46.9 semen analysis + viability: analysis by Dr. Ruiz [id number] Yung Felipe DO Main Office [address] [facility] [place] [address] 10/22/2023 13:58:48 10/22/2023 14:31:18 Evaluation of semen fertility 178108692 N46.9 semen analysis + viability: analysis by [...] analysis Yung Felipe DO [address], [place], [address], [facility], 08/06/2021 23:24:22 2 text/html InfertilityReported by Patient Not Available Not Available Not Available 3 text/html semen analysis + viability [address], [place], [address], [facility], 05/31/2022 13:57:30 4 text/html semen analysis [address], [place], [address], [facility], 10/22/2023 16:29:00
--- OUTSIDE RECORDS SUMMARY | 2025-03-13 14:27 | XMS_ITS | Encounter Summary ---
[facility] Organization [facility] Address [address] [place] [address] Care Team Providers Care Diploma Pharmacy Technician Name Role Phone Enedina Mcguire APRN Primary Care Provider + Encounter Details Date Type Department Care Team ([facility] st Contact Info) Description 02/17/2025 Telephone [facility] INTERNAL MEDICINE [address] [place] [address] Enedina Mcguire APRN [address] [place] [address] Social History Tobacco Use Types [...] Recorded In the past 12 months has [employer], [employer], oil, or water [employer] threatened to shut off services in your [...] Severity Measure Score 0 10/02/2022 [facility] - Occupational Stress Questionnaire Answer [...] Please reach out to Dr. Orosco at [facility] (Phone: tel: ) Patient stated that [...] 2:30 PM EST Office Visit [facility] INTERNAL MEDICINE [address] [place] [address] Enedina Mcguire APRN [address] [place] [address] 05/21/2025 12:30 PM EST Office Visit [facility] PAIN MANAGEMENT 3000 [facility] [address] [place] [phone] Vazquez Christie PA-C [address] [place] [address] [address] [place] [address] documented as of this encounter Visit Diagnoses Not on filedocumented in this encounter Additional Health Concerns Assessment Noted Time PHQ-2 Depression Total Score: 1 12/31/19 24 3:25 PM EDT documented as of this encounter Care Teams Diploma Pharmacy Technician Relationship Specialty Start Date End Date Enedina Mcguire APRN [address] [place] [address] PCP - General Nurse Practitioner 10/27/24 documented as of this encounter
--- OUTSIDE RECORDS SUMMARY | 2025-03-13 14:27 | XMS_ITS | Encounter Summary ---
Author Organization [facility] Address [facility] [place] [address] Care Team Providers Care Commissions Coordinator Name Role Phone Enedina Mcguire NP Primary Care Provider + [phone] Maureen Pantoja RN Unavailable Unavail able Chris Orosco MD Unavailable [phone] Source Comments This information has been disclosed [...] release of HIV test results or diagnoses. [id number] Reason for Visit * Reason Comments Medication Refill Encounter Details Date Type Department Care Team (Late st Contact Info) Description 03/02/2025 Refill [facility] [address] [place] [address] Feliciano Gomez CNP [address] [place] [id number] Social History Tobacco Use Types Packs/Day Years Used Date Smoking Tobacco: Former Cigarettes Smokeless Tobacco: Current Alcohol Use Standard Drinks/Week Comments Yes 0 (1 standard drink = 0.6 oz pure alcohol) History of alcohol abuse, reports no use in 3 week- typically endorses use as 4 glasses of wine a days Utilities Answer Date Recorded In the past 12 months has th e [employer], [employer], or [employer] threatened to shut off services in [...] documented as of this encounter Care Teams Commissions Coordinator Relationship Specialty Start Date End Date Enedina Mcguire NP [address] [place] [address] PCP - General Internal Medicine 10/05/24 Maureen Pantoja RN Txp Post Coordinator Transplant Hepatology 10/28/24 Chris Orosco MD [address] [facility] [address] [place] [address] Consulting Physician Transplant Hepatology 02/26/25 documented as of this encounter
--- OUTSIDE RECORDS SUMMARY | 2025-03-13 14:27 | XMS_ITS | Encounter Summary ---
Author Organization [facility] Address [address] [place] [address] Care Team Providers Care Preschool Substitute Teacher Name Role Phone Enedina Mcguire APRN [...] Recorded In the past 12 months has [employer], gas, oil, or water [employer] threatened to shut off services in your [...] Brief Depression Severity Measure Score 0 10/02/2022 [facility] Occupat ional Health - Occupational Stress [...] GED or equivalent No 07/09/2024 Preferred Language Cuban 07/09/2024 PHQ-2 Answer Date Recorded Patient Health [...] 2:30 PM EST Office Visit [facility] INTERNAL MEDICINE [address] [place] [address] Enedina Mcguire APRN [address] [place] [id number] 05/21/2025 12:30 PM EST Office Visit [facility] PAIN MANAGEMENT [address] [facility] 330 [place] [address] Vazquez Christie PA-C [address] [place] [address] [address] [place] [address] documented as of this encounter Visit Diagnoses Not on filedocumented in this encounter Additional Health Concerns Assessment Noted Time PHQ-2 Depression Total Score: 1 12/31/19 24 3:25 PM EDT documented as of this encounter Care Teams Preschool Substitute Teacher Relationship Specialty Start Date End Date Enedina Mcguire APRN [address] [place] [id number] PCP - General Nurse Practitioner 10/27/24 documented as of this encounter
--- OUTSIDE RECORDS SUMMARY | 2025-03-13 14:27 | XMS_ITS | Encounter Summary ---
[facility] Address [address] [place] [address] Care Team Providers Care Tread Tuber Machine Operator Name Role Phone Enedina Mcguire APRN Primary Care Provider + Encounter Details Date Type Department Care Team (Late st Contact Info) Description 02/20/2025 Telephone [facility] PAIN MANAGEMENT [address] [address] Georgina Rainey MA Social History [...] In the past 12 months has [employer], [employer], oil, or water [employer] threatened to shut off services in [...] Brief Depression Severity Measure Score 0 10/02/[address] [facility] - Occupational Stress Questionnaire Answer Date [...] GED or equivalent No 07/09/2024 Preferred Language Arabic 07/09/2024 PHQ-2 Answer Date Recorded Patient Health [...] 05/18/2025 2:30 PM EST Office Visit [facility] INTERNAL MEDICINE [address] [place] [address] Enedina Mcguire APRN [address] [place] [address] 05/21/2025 12:30 PM EST Office Visit [facility] PAIN MANAGEMENT [address] [address] Vazquez Christie PA-C 1760 [facility] [address] [place] [address] documented as of this encounter Visit Diagnoses Not on filedocumented in this encounter Additional Health Concerns Assessment Noted Time PHQ-2 Depression Total Score: 1 12/31/19 24 3:25 PM EDT documented as of this encounter Care Teams Tread Tuber Machine Operator Relationship Specialty Start Date End Date Enedina Mcguire APRN [address] [place] [address] PCP - General Nurse Practitioner 10/27/24 documented as of this encounter
--- OUTSIDE RECORDS SUMMARY | 2025-03-13 14:27 | XMS_ITS | Encounter Summary ---
[facility] Address [address] [place] [address] Care Team Providers Care Forestry Patrolman Name Role Phone Enedina Mcguire APRN Primary Care Provider + Encounter Details Date Type Department Care Team ([facility] st Contact Info) Description 02/23/2025 Results Follow-Up [facility] INTERNAL MEDICINE [address] [place] [address] Enedina Mcguire APRN [address] [place], [place] [id number] Social History Tobacco Use Types Packs/Day Years Used Date Smoking Tobacco: Former Cigarettes 4 20 Passive Smoke Exposure: Past Smokeless Tobacco: Current Comments:MARIJUANA USE ABOUT 2X PER WEEK - reports no use 08-05-2024 Alcohol Use Standard Drinks/Week Comments Not Currently 0 (1 standard drink = 0.6 oz pure alcohol) 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 [facility] Utilities Answer Date Recorded In the past 12 months has [employer], [employer], oil, or water [employer] threatened to shut off services in [...] GED or equivalent No 07/09/2024 Preferred Language Uzbek 07/09/2024 PHQ-2 Answer Date Recorded Patient Health [...] Description 05/18/2025 2:30 PM EST Office Visit [facility] INTERNAL MEDICINE [address] [place] [address] Enedina Mcguire APRN [address] [place] [address] 05/21/2025 12:30 PM EST Office Visit [facility] PAIN MANAGEMENT [address] [facility] [address] [place] [address] Vazquez Christie PA-C [address] [place] [address] [place] [address] documented as of this encounter Visit Diagnoses Not on filedocumented in this encounter Additional Health Concerns Assessment Noted Time PHQ-2 Depression Total Score: 1 12/31/19 24 3:25 PM EDT documented as of this encounter Care Teams Forestry Patrolman Relationship Specialty Start Date End Date Enedina Mcguire APRN [address] [place] [address] [id number] PCP - General Nurse Practitioner 10/27/24 documented as of this encounter
--- OUTSIDE RECORDS SUMMARY | 2025-03-13 14:27 | XMS_ITS | Encounter Summary ---
Author Organization [facility] Address [address] [place] [address] Care Team Providers Care Reporter Anchor Name Role Phone Enedina Mcguire NP Primary Care Provider + [phone] Maureen Pantoja RN Unavailable Unavail able Chris Orosco MD Unavailable +[phone] Source Comments This information has been disclosed [...] release of HIV test results or diagnoses. [id number] Health Encounter Details Date Type Department Care Team (Late st Contact Info) Description 03/02/[address] [facility] Liver Transplant at [address] [address] Marlene Ro MA Social History [...] Recorded In the past 12 months has [employer], gas, oil, or water [employer] threatened to shut off services in your [...] documented as of this encounter Care Teams Reporter Anchor Relationship Specialty Start Date End Date Enedina Mcguire NP [address] [place] [address] PCP - General Internal Medicine 10/05/24 Maureen Pantoja, ЮЛИЯ Txp Post Coordinator Transplant Hepatology 10/28/24 Chris Orosco MD [address] [place] [address] [address] [place] [address] Consulting Physician Transplant Hepatology 02/26/25 documented as of this encounter
--- OUTSIDE RECORDS SUMMARY | 2025-03-13 14:27 | XMS_ITS | Encounter Summary ---
[facility] Address [address] [place] [address] Care Team Providers Care Environmental Compliance Manager Name Role Phone Enedina Mcguire APRN Primary Care Provider + Encounter Details Date Type Department Care Team ([facility] st Contact Info) Description 02/23/[address] [facility] INTERNAL MEDICINE [address] [place] [address] Enedina Mcguire APRN [address] [place] [address] [id number] Social History Tobacco Use Types Packs/Day Years [...] Recorded In the past 12 months has [employer], [employer], oil, or water [employer] threatened to shut off services in your [...] GED or equivalent No 07/09/2024 Preferred Language Thai 07/09/2024 PHQ-2 Answer Date Recorded Patient Health [...] MA - 02/24/2025 11:14 AM EDT Sent [employer] message to patient. * Telephone Encounter - [...] Description 05/18/2025 2:30 PM EST Office Visit [facility] INTERNAL MEDICINE [address] [place] [address] Enedina Mcguire, PHOTOGRAPHER AERIAL [address] [place] [address] [phone] 05/21/2025 12:30 PM EST Office Visit [facility] PAIN MANAGEMENT [address] [facility] 330 [place] [address] Vazquez Christie PA-C [address] [facility] [address] [place] [address] documented as of this encounter Visit Diagnoses Not on filedocumented in this encounter Additional Health Concerns Assessment Noted Time PHQ-2 Depression Total Score: 1 12/31/19 24 3:25 PM EDT documented as of this encounter Care Teams Environmental Compliance Manager Relationship Specialty Start Date End Date Enedina Mcguire APRN [address] [place] [address] PCP - General Nurse Practitioner 10/27/24 documented as of this encounter
--- OUTSIDE RECORDS SUMMARY | 2025-03-13 14:27 | XMS_ITS | Encounter Summary ---
Author Organization [facility] Address [address] [place] [address] Care Team Providers Care Forensic Specialist Name Role Phone Enedina Mcguire NP Primary Care Provider + [phone] Alicia Rankin RN Unavailable Unavail able Chris Orosco MD Unavailable [phone] Source Comments This information has been disclosed [...] release of HIV test results or diagnoses. [id number] Health Reason for Visit * Reason Comments Results Medication Dose Change Encounter Details Date Type Department Care Team (Late st Contact Info) Description 02/26/[address] [facility] Liver Transplant at [address] [address] Alicia Rankin, ЮЛИЯ Results; Medication [...] Recorded In the past 12 months has [employer], gas, oil, or water company threatened to [...] as of this encounter Care Teams Forensic Specialist Relationship Specialty Start Date End Date Enedina Mcguire NP [address] [place] [address] PCP - General Internal Medicine 10/05/24 Alicia Rankin, ЮЛИЯ Txp Post Coordinator Transplant Hepatology 10/28/24 Chris Orosco MD [address] [place] [address] [address] [place] [address] Consulting Physician Transplant Hepatology 02/26/25 documented as of this encounter
--- OUTSIDE RECORDS SUMMARY | 2025-03-13 14:28 | XMS_ITS | Clinical Summary ---
Author Organization Healthcare Address [address] [place] [address] Care Team Providers Care Mexican Food Cook Name Role Phone Lj Tapia Rohini RICKS Unavailable [phone] Enedina Mcguire APRN Primary Care Provider + [...] answer 07/14/2024 How often do you attend [facility] or [facility] services? Patient unable to answer [...] 2 09/29/2024 [facility] - [...] drink first t deborah in the morning (EYE-CRTT) to steady your nerves or to get rid of a hangover? 0 07/19/2024 CAGE Questionnaire Score 2 025 Utilities Answer Date Recorded In the past 12 months has th [employer], gas, oil, or water company threatened to [...] 2 - 13+ 2-dose series) 10/11/2010 09/13/2010 [id number] Vaccine (4 - 2024- season) 2025 03/17/2021, [...] this topic Medical Devices Implanted Type Area Skein Yarn Dyer Device Identifier Shelf Expiration Date Model / Serial / Lot Concerto [place] Coil-07/03/2022 Implanted:06/15 by Timmy Brunner MD (Quantity not on file) Coil Abdomen Description:Multiple Coil Co ncerto Pgla [place] Detach COILS implanted on 07/03/2022 by Timmy Brunner MD at [facility]--info can be found in Care Everywhere for [facility] as of 11/15/23 Dona Coil-07/03/2022 Implanted:06/15 by Timmy Brunner MD (Quantity not on file) Coil Abdomen [employer] Description:Coil Emb Dona 3.7/Implanted: Qty: 1 on 07/03/2022 by Timmy Brunner MD at [facility] Plate Plate N/A: Neck Plug Vasc Anton Emb Amplatzer Implanted:06/15 by Timmy Brunner MD (Quantity not on file) Plug Other Vein / / [id number] Description:Plug Vasc Anton Em b Ampltz .027 [id number] - [id number] Implanted: Qty: 1 on 07/03/2022 by Timmy Brunner MD at [facility] Stent Gastro Panc 5fr 5cm - [id number] Implanted:Qty: 1 on 11/20/2023 by Devang Mcghee, RN at [facility] Pancreas [employer]-[id number] 08/13/2026 [id number] / / [id number] Procedures Procedure Name Priority Date/Time Associated Diagnosis [...] Reactive Non Reactive 07/14/2024 5:31 PM EST [facility] Comment:Screening for HIV 1 & 2 antibodies, and P24 antigen is NONREACTIVE. No confirmatory testing is required. Blood Venous blood specimen / Unknown Venipuncture / Unknown 07/14/2024 4:31 PM EST 07/14/2024 4:56 PM EST Laureano Salinas APRN, [facility] BLOOD ORDERA BLES Final Result Performing Organization Address [facility] Co de Phone Number [facility]ALTHCARE [facility] [address] [place] [address] * Hepatitis C Antibody (07/14/2024 4:31 PM EST) [facility] Signature Hepatitis C Antibody Negative Negative 07/14/2024 5:27 PM EST [facility] Blood Venous blood specimen / Unknown Venipuncture / Unknown 07/14/2024 4:31 PM EST 07/14/2024 4:54 PM EST Laureano Salinas APRN, [facility] BLOOD ORDERA BLES Final Result Performing Organization Address [facility] de Phone Number [facility] [address] [place] [address] from Last 3 Months or Most Recently Relevant to Health Maintenance Insurance [employer] Advance Directives * Full Code (Latest Code Status on File) Date Activated Date Inactivated Comments 07/11/2024 11:04 PM 07/23/2024 6:27 PM Question Answer Comments Patient has decision-making capacity? Yes * Full Code Date Activated Date Inactivated Comments 11/14/2023 10:15 PM 11/27/2023 9:08 PM Question Answer Comments Patient has decision-making capacity? Yes Care Teams Mexican Food Cook Relationship Specialty Start Date End Date Enedina Mcguire APRN [address] [place] [address] PCP - General 12/04/22 Lj Tapia APRN [address] [place] [address] Referring Physician Gastroenterology 07/18/22
--- OUTSIDE RECORDS SUMMARY | 2025-03-13 14:28 | XMS_ITS | Encounter Summary ---
Author Organization [facility] Address [address] [place] [address] Care Team Providers Care Echo Technologist Name Role Phone Enedina Mcguire NP Primary Care Provider + [phone] Maureen Pantoja RN Unavailable Unavail able Source [...] release of HIV test results or diagnoses. [id number] Health Encounter Details Date Type Department Care Team (Late st Contact Info) Description 01/27/[address] [facility] Liver Transplant at [address] [address] Marlene Ro MA Social History [...] has [employer], gas, oil, or water [employer] threatened to shut off services in your [...] AM EDT Called and spoke to Gladys, electric organ assembler and checker ultrasound manager, and taran Rosario about his 1 [...] documented as of this encounter Care Teams Echo Technologist Relationship Specialty Start Date End Date Enedina Mcguire NP [address] [place] [address] PCP - General Internal Medicine 10/05/24 Maureen Pantoja, RN Txp Post Coordinator Transplant Hepatology 10/28/24 documented as of this encounter
--- OUTSIDE RECORDS SUMMARY | 2025-03-13 14:28 | XMS_ITS | Encounter Summary ---
Author Organization Healthcare Address [address] [place] [address] Care Team Providers Care Taping Foreman Name Role Phone Jony Conde MD Primary Care Provider [phone] Lj Tapia FLASH OVEN OPERATOR Unavailable [phone] Enedina Mcguire APRN Primary Care Provider + Nuria Fall ELECTRICIAN DECK Unavailable Unavaila ble Encounter Details Date Type Department Care Team (Late st Contact Info) Description 07/02/2022 Orders Only External Location [address] [place] [address] Provider, External Social History Tobacco Use Types [...] on filedocumented in this encounter Care Teams Taping Foreman Relationship Specialty Start Date End Date Jony Conde MD [address] [facility] [address] [place], [place] [id number] PCP - General 07/18/22 12/03/22 Enedina Mcguire APRN [address] [place] [address] PCP - General 12/04/22 Lj Tapia APRN [address] [place] [address] Referring Physician Gastroenterology 07/18/22 Nuria Fall LPN [facility] TCM Nurse 07/24/24 08/23/24 documented as of this encounter
--- OUTSIDE RECORDS SUMMARY | 2025-03-13 14:28 | XMS_ITS | Encounter Summary ---
[facility] Address [address] [place] [address] Care Team Providers Care Timber Hand Name Role Phone Enedina Mcguire APRN Primary Care Provider + Encounter Details Date Type Department Care Team ([facility] st Contact Info) Description 10/07/2024 Results Follow-Up [facility] INTERNAL MEDICINE [address] [place] [address] Enedina Mcguire APRN [address] [place], [place] [phone] Social History Tobacco Use Types Packs/Day Years Used Date Smoking Tobacco: Former Cigarettes 4 20 Passive Smoke Exposure: Past Smokeless Tobacco: Current Comments:MARIJUANA USE ABOUT 2X PER WEEK - reports no use 08-05-2024 Alcohol Use Standard Drinks/Week Comments Not Currently 0 (1 standard drink = 0.6 oz pure alcohol) 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 [facility] Utilities Answer Date Recorded In the past 12 months has [employer], [employer], oil, or water [employer] threatened to shut off services in your [...] [facility] INTERNAL MEDICINE [address] [place] [address] Enedina Mcguire APRN [address] [place] [address] 05/21/2025 12:30 PM EST Office Visit [facility] PAIN MANAGEMENT [address] [facility] [address] [place] [address] Vazquez Christie PA-C [address] [place] [address] [place] [address] documented as of this encounter Visit Diagnoses Not on filedocumented in this encounter Additional Health Concerns Assessment Noted Time PHQ-2 Depression Total Score: 1 12/31/19 24 3:25 PM EDT documented as of this encounter Care Teams Timber Hand Relationship Specialty Start Date End Date Enedina Mcguire APRN [address] [place] [address] [id number] PCP - General Nurse Practitioner 10/27/24 documented as of this encounter
--- OUTSIDE RECORDS SUMMARY | 2025-03-13 14:28 | XMS_ITS | Encounter Summary ---
Author Organization [facility] Address [address] [place] [address] Care Team Providers Care Military Education Coordinator Name Role Phone Enedina Mcguire NP Primary Care Provider + [phone] Maureen Pantoja RN Unavailable Unavail able Chris Orosco MD Unavailable [phone] Source Comments This information has been disclosed [...] release of HIV test results or diagnoses. [id number] Health Encounter Details Date Type Department Care Team (Late st Contact Info) Description 03/10/2025 Telephone [facility] Liver Transplant at [address] [address] Marlene Ro MA Social History [...] Recorded In the past 12 months has [employer], gas, oil, or water [employer] threatened to shut off services in [...] Progress Notes * Marlene Ro MA - 03/10/2025 12:54 PM EDT Outgoing call to [facility] to verify if a CMV test was drawn on 02/24. Medical Records confirmed that labs were completed on 02/24 and faxed the results, which included CMV Ab IgM and CMVIgG, but not a CMV Quant PCR. I then spoke with Danielle at the lab, who verified that today???s collection was for the correct test--CMV Quant PCR. documented in this encounter Plan of Treatment Not on file documented as of this encounter Visit Diagnoses Not on filedocumented in this encounter Additional Health Concerns Infection Onset Date Last Indicated Resolved Time C. difficile 01/28/2025 01/28/2025 Assessment Noted Time PHQ-9 Depression Total Score: 2 12/11/19 9:00 AM EDT documented as of this encounter Care Teams Military Education Coordinator Relationship Specialty Start Date End Date Enedina Mcguire NP [address] [place] [address] PCP - General Internal Medicine 10/05/24 Maureen Pantoja, ЮЛИЯ Txp Post Coordinator Transplant Hepatology 10/28/24 Chris Orosco MD [address] [place] [address] [place] [address] Consulting Physician Transplant Hepatology 02/26/25 documented as of this encounter
--- OUTSIDE RECORDS SUMMARY | 2025-03-13 14:28 | XMS_ITS | Encounter Summary ---
Author Organization [facility] Address [address] [place] [address] Care Team Providers Care Flight Engineer Performance Qualified Name Role Phone Enedina Mcguire NP Primary Care Provider + [phone] Maureen Pantoja RN Unavailable Unavail able Source [...] release of HIV test results or diagnoses. [id number] Reason for Visit * Reason Onset Date Comments Medication Refill 01/21/2025 Encounter Details Date Type Department Care Team (Late st Contact Info) Description 01/21/2025 Refill [facility] Liver Transplant at [place] [address] [place] [address] Lydia Sanchez MD [address] [place] [address] Liver/[place] [address] Encounter for therapeutic drug monitoring; [...] 01/06/2025 Leisa Juarez MD Next appointment: 02/03/2025 [facility] Last labs: Lab Results Component Value [...] of this encounter Care Teams Flight Engineer Performance Qualified Relationship Specialty Start Date End Date Enedina Mcguire NP [address] [place] [address] PCP - General Internal Medicine 10/05/24 Maureen Pantoja RN Txp Post Coordinator Transplant Hepatology 10/28/24 documented as of this encounter
--- OUTSIDE RECORDS SUMMARY | 2025-03-13 14:28 | XMS_ITS | Encounter Summary ---
Author Organization [facility] Address [address] [place] [address] Care Team Providers Care White Hat Hacker Name Role Phone Enedina Mcguire NP Primary Care Provider + [phone] Maureen Pantoja RN Unavailable Unavail able Chris Orosco MD Unavailable [phone] Source Comments This information has been disclosed [...] release of HIV test results or diagnoses. [id number] Health Encounter Details Date Type Department Care Team (Late st Contact Info) Description 03/10/2025 Chart Note [facility] Liver Transplant at [address] [address] Marlene Ro MA 03/10 Labs entered from [facility] Social History Tobacco Use Types Packs/Day Years Used Date Smoking Tobacco: Former Cigarettes Smokeless Tobacco: Current Alcohol Use Standard Drinks/Week Comments Yes 0 (1 standard drink = 0.6 oz pure alcohol) History of alcohol abuse, reports no use in 3 week- typically endorses use as 4 glasses of wine a days Utilities Answer Date Recorded In the past 12 months has [employer], gas, oil, or water company threatened to [...] URINE PROTEIN, TOTAL, RANDOM (W/O CREATININE) Routine 03/10/2025 9:29 AM EDT CYTOMEGALOVIRUS DNA, QUANT, RT PCR Routine 03/10/2025 9:29 AM EDT HEPATIC FUNCTION PANEL Routine 9:29 AM EDT CREATININE, URINE, RANDOM Routine 03/10/2025 9:29 AM EDT URINALYSIS W/RFL TO MICROSCOPIC Routine 03/10/2025 9:29 AM EDT CBC AND DIFFERENTIAL Routine 03/10/2025 9:29 AM EDT MAGNESIUM Routine 03/10/2025 9:29 AM EDT RENAL FUNCTION PANEL W/O EGFR Routine 03/10/2025 9:29 AM EDT documented in this encounter Results * Cytomegalovirus DNA, Quant, RT PCR (03/10/2025 9:29 AM EDT) CMV Quant DNA PCR (Plasma) Negative Plasma us Historical Provider LAB BLOOD ORDERABLES Denisse l Result * Creatinine, urine, random (03/10/2025 9:29 AM EDT) Creatinine, Urine 94 Urine Narrative Resulting Agency Comment [facility] us Historical Provider URINE ORDERABLES Final Re sult * Urinalysis w/Rfl to Microscopic (03/10/2025 9:29 AM EDT) Glucose, UA Negative Negative Ketones, UA Negative Negative Blood, UA Negative Negative Bilirubin, UA Negative Negative Urobilinogen, UA Normal Normal Protein, UA Negative Negative Nitrite, UA Negative Negative pH, UA 5.5 4.5 - 8.0 Specific Shiro, UA 1.015 1.005 - 1.030 Clarity, UA Clear Clear Color, UA Yellow Light Yellow, Yellow Urine Narrative Resulting Agency Comment [facility] Result [facility] Provider MD URINE ORDERABLES Final Re sult * Urine Protein, Tot, Random (w/o Creat) (03/10/2025 9:29 AM EDT) Total Protein, Ur 21.0 Urine Narrative Resulting Agency Comment [facility] Result [facility] URINE ORDERABLES Final Re sult * (ABNORMAL) Magnesium (03/10/2025 9:29 AM EDT) Magnesium 0.9(A) 1.6 - 2.4 mg/dL Plasma Narrative Resulting Agency Comment [facility] Result [facility] LAB BLOOD ORDERABLES Denisse l Result * Hepatic Function Panel (03/10/2025 9:29 AM EDT) Bilirubin, Direct 0.2 Bilirubin, Indirect 0.5 Alkaline Phosphatase 102 ALT 28 AST 26 Total Bilirubin 0.7 Total Protein 6.7 Plasma Narrative Resulting Agency Comment [facility] Result [facility] MD LAB BLOOD ORDERABLES Denisse l Result * (ABNORMAL) Renal Function Panel w/o EGFR (03/10/2025 9:29 AM EDT) Glucose 111 BUN 13 CO2 28(A) 13 - 22 mmol/L Creatinine 1.30 Potassium 3.9 Sodium 138 Chloride 100 Phosphorus 5.0(A) 2.5 - 4.9 mg/dL Calcium 9.2 EGFR 61 mg/dL Albumin 4.5 3.5 - 5.0 g/dL Blood Narrative Resulting Agency Comment [facility] Historical Provider LAB BLOOD ORDERABLES Denisse l Result * (ABNORMAL) CBC and differential (03/10/2025 9:29 AM EDT) Hemoglobin 13.5 13.5 - 17.5 g/dL Hematocrit 38.2(A) 41 - 53 % RDW 14.9(A) 11.5 - 14.5 % Lymphocytes Absolute 1.6 / L Monocytes Absolute 0.5 / L Eosinophils Absolute 0.1 / L Basophils Absolute 0.1 / L Neutrophils Relative 59.1 46 - 78 % Lymphocytes Relative 29.0 18 - 52 % Monocytes Relative 9.1 3 - 10 % Eosinophils Relative 1.2 0 - 6 % Basophils Relative 0.9 0 - 3 % Neutrophils Absolute 3.3 / L MCH 33.9 26.0 - 34.0 pg MCHC 35.3 30 - 37 g/dL MCV 96.0 82.0 - 108.0 fL Platelets 168 K/ L RBC 3.98(A) 4.50 - 5.90 10^6/ L WBC 5.6 10^3/mL Blood Narrative Resulting Agency Comment [facility] Historical Provider LAB BLOOD ORDERABLES Denisse l Result documented in this encounter Visit Diagnoses Not on filedocumented in this encounter Additional Health Concerns Infection Onset Date Last Indicated Resolved Time C. difficile 01/28/2025 01/28/2025 Assessment Noted Time PHQ-9 Depression Total Score: 2 12/11/19 25 9:00 AM EDT documented as of this encounter Care Teams White Hat Hacker Relationship Specialty Start Date End Date Enedina Mcguire NP [address] [place] [address] PCP - General Internal Medicine 10/05/24 Maureen Pantoja, ЮЛИЯ Txp Post Coordinator Transplant Hepatology 10/28/24 Chris Orosco MD [address] [place] [address], [address] [place] [phone] Consulting Physician Transplant Hepatology 02/26/25 documented as of this encounter
--- OUTSIDE RECORDS SUMMARY | 2025-03-13 14:28 | XMS_ITS | Encounter Summary ---
Author Organization [facility] Address [address] [place] [address] Care Team Providers Care Acoustic Intelligence Specialist Name Role Phone Enedina Mcguire NP Primary Care Provider + [phone] Maureen Pantoja RN Unavailable Unavail able Chris Orosco MD Unavailable [phone] Source Comments This information has been disclosed [...] release of HIV test results or diagnoses. [id number] Health Reason for Visit * Reason Comments Results Encounter Details Date Type Department Care Team (Late st Contact Info) Description 03/06/2025 Telephone [facility] Liver Transplant at [address] [address] Maureen Pantoja, ЮЛИЯ Results Social [...] Recorded In the past 12 months has [employer], gas, oil, or water company threatened to [...] Progress Notes * Maureen Pantoja RN - 03/10/2025 2:28 PM EDT FK 14.6 FK pending from today. Will follow-up on today's results. * Maureen Pantoja RN - 03/06/2025 10:26 [...] documented as of this encounter Care Teams Acoustic Intelligence Specialist Relationship Specialty Start Date End Date Enedina Mcguire NP [address] [place] [address] PCP - General Internal Medicine 10/05/24 Maureen Pantoja, ЮЛИЯ Txp Post Coordinator Transplant Hepatology 10/28/24 Chris Orosco MD [address] [facility] [address] [place] [address] Consulting Physician Transplant Hepatology 02/26/25 documented as of this encounter
--- OUTSIDE RECORDS SUMMARY | 2025-03-13 14:28 | XMS_ITS | Clinical Summary ---
Author Organization [facility] Address [address] [place] [address] Care Team Providers Care Director Of Individual Giving Name Role Phone Enedina Mcguire APRN Primary [...] Daily. Active vitamin D (ERGOCALCIFEROL) 1.25 MG (07395 UT) capsule capsuleIndication s:Vitamin D deficiency Take [...] Needed. 2024 vitamin D (ERGOCALCIFEROL) 1.25 MG (21375 UT) capsule capsule Take 1 capsule by [...] MANAGEMENT [address] [facility] [address] [place] [address] Vazquez Christie PA-C Occipital neuralgia of right side (Primary Dx); Cervical spondylosis without myelopathy; Cervical pain (neck); Long-term use of high-risk medication; Cervical radiculopathy; Therapeutic drug monitoring; Chronic pain syndrome 03/03/2025 Travel 03/02/2025 Telephone [facility] PAIN MANAGEMENT [address] [facility] [address] [place] [phone] Georgina Rainey MA 02/23/2025 Prior Authorization [facility] INTERNAL MEDICINE [address] [place] [address] Enedina Mcguire, SERVER SOFTWARE ENGINEER 02/23/2025 Results Follow-Up [facility] [address] [place] [address] Enedina Mcguire, SERVER SOFTWARE ENGINEER 02/20/2025 Telephone [facility] [address] [place] [address] Enedina Mcguire, SERVER SOFTWARE ENGINEER Results 02/20/2025 Telephone [facility] PAIN MANAGEMENT [address] [address] Georgina Rainey MA 02/19/2025 7:45 AM EDT Outside Facility Service [facility] PAIN [facility]NAGEMENT [address] [address] Tye Song MD 02/19/2025 Documentation [facility] PAIN MANAGEMENT [address] [address] Tye Song MD 02/17/2025 3:15 PM EDT Office Visit [facility] [address] [place] [address] Enedina Mcguire, SERVER SOFTWARE ENGINEER Encounter for follow-up (Primary Dx); Kidney transplant recipient; Liver transplant recipient; Vitamin D deficiency; Low testosterone in male; History of systemic steroid therapy 02/17/2025 Telephone [facility] [address] [place] [address] Enedina Mcguire, SERVER SOFTWARE ENGINEER 02/17/2025 Travel 02/11/2025 Telephone [facility] PAIN MANAGEMENT [address] [address] Tye Song MD [facility]- INJECTION SCHEDULE 01/08/2025 Telephone [facility] PAIN MANAGEMENT [address] [address] Vazquez Christie PA-C Appointment 01/01/2025 2:15 PM EDT Office Visit [facility] PAIN MANAGEMENT [address] [facility] [address] [place] [address] Vazquez Christie PA-C Cervical radiculopathy (Primary Dx); Long-term use of high-risk medication; Cervical spondylosis without myelopathy; Cervical pain (neck); Therapeutic drug monitoring; Chronic pain syndrome 01/01/2025 Travel 12/12/2024 Refill [facility] [address] [place] [address] Enedina Mcguire APRN Acquired hypothyroidism; [...] 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 [facility] Utilities Answer Date Recorded In the past 12 months has [employer], gas, oil, or water company threatened to [...] GED or equivalent No 07/09/2024 Preferred Language Japanese 07/09/2024 PHQ-2 Answer Date Recorded Patient Health [...] [facility] [address] [place] [address] Enedina Mcguire, SERVER SOFTWARE ENGINEER [address] [place] [address] 05/21/2025 12:30 PM EST Office Visit [facility] PAIN MANAGEMENT [address] [facility] [address] [place] [address] Vazquez Christie PA-C [address] [facility] [address] [place] [address] Health Maintenance Due Date Last [...] 0-49 Discontinued Medical Devices Implanted Type Area Agriculture Science Teacher Device Identifier Shelf Expiration Date Model / Serial / Lot Coil Concerto Pgla Hel Detach Sys 10mm 30cm - [id number] Implanted:Qty: 1 on 07/03/2022 by Timmy Brunner MD at [facility] Implant Left: Vein EV3 A [employer] [id number] / / [id number] Description:Coil is in the s hort gastric vein Coil Concerto Nyl [place] Detach Sys 10mm 30cm - [id number] Implanted:Qty: 1 on 07/03/2022 by Timmy Brunner MD at [facility] Implant Left: Vein EV3 A COVNeocoretech [id number] / / [id number] Description:Short gastric ve in Coil Concerto Nyl [place] Detach Sys 10mm 30cm - [id number] Implanted:Qty: 1 on 07/03/2022 by Timmy Brunner MD at [facility] Implant Left: Vein EV3 A [employer] [id number] / / [id number] Description:Short gasrtic ve in Coil Concerto Nyl [place] Detach Sys 10mm 30cm - [id number] Implanted:Qty: 1 on 07/03/2022 by Timmy Brunner MD at [facility] Implant Left: Vein EV3 A [employer] [id number] / / [id number] Description:Short gastric ve in Coil Concerto Nyl [place] Detach Sys 8mm 30cm - [id number] Implanted:Qty: 1 on 07/03/2022 by Timmy Brunner MD at [facility] Implant Left: Vein EV3 A [employer] [id number] / / [id number] Description:Short gastric ve in Coil Concerto Nyl [place] Detach Sys 8mm 30cm - [id number] Implanted:Qty: 1 on 07/03/2022 by Timmy Brunner MD at [facility] Implant Left: Vein EV3 A [employer] [id number] / / [id number] Description:Short gastric ve in Sys Del Liq Emb Trufill Nbca 1g Vl - [id number] Implanted:Qty: 1 on 07/03/2022 by Timmy Brunner MD at [facility] Implant Left: Vein [facility] [id number] / / [id number] Description:Short gastric ve in Plug Vasc Anton Emb Ampltz .027 [id number] - [id number] Implanted:Qty: 1 on 07/03/2022 by Timmy Brunner MD at [facility] Implant Left: Vein [employer] [id number] / / [id number] Description:Coronary vein Coil Concerto Nyl [place] Detach Sys 8mm 30cm - [id number] Implanted:Qty: 1 on 07/03/2022 by Timmy Brunner MD at [facility] Implant Left: Vein EV3 A [employer] [id number] / / [id number] Description:CORONARY VEIN Gelatin Emb Embocube 5.02mm 50mg Red - [id number] Implanted:Qty: 1 on 07/03/2022 by Timmy Brunner MD at [facility] Implant Left: Vein [employer] [id number] / / [id number] Description:SHORT GASTRIC VE IN Coil Emb Dona 3.7/Lp .035in 14cm 12mm - [id number] Implanted:Qty: 1 on 07/03/2022 by Timmy Brunner MD at [facility] Implant Left: Vein COOK [id number] / / [id number] Description:SHORT GASTRIC VE IN Coil Concerto Pgla [place] Detach Sys 12mm 30cm - [id number] Implanted:Qty: 1 on 07/03/2022 by Timmy Brunner MD at [facility] Implant Left: Vein EV3 A [employer] [id number] / / [id number] Description:Short gastric ve in Coil Concerto Nyl [place] Detach Sys 8mm 30cm - [id number] Implanted:Qty: 1 on 07/03/2022 by Timmy Brunner MD at [facility] Implant Left: Vein EV3 A [employer] [id number] / / [id number] Description:SHORT GASTRIC VE IN Coil Concerto Nyl [place] Detach Sys 8mm 30cm - [id number] Implanted:Qty: 1 on 07/03/2022 by Timmy Brunner MD at [facility] Implant Left: Vein EV3 A [employer] [id number] / / [id number] Description:Short gastric ve in Coil Concerto Nyl [place] Detach Sys 8mm 30cm - [id number] Implanted:Qty: 1 on 07/03/2022 by Timmy Brunner MD at [facility] Implant Left: Vein EV3 A [employer] [id number] / / [id number] Description:Short gastric ve in Coil Concerto Pgla Hel Detach Sys 14mm 40cm - [id number] Implanted:Qty: 1 on 07/03/2022 by Timmy Brunner MD at [facility] Implant Left: Vein EV3 A [employer] [id number] / / [id number] Description:Short gastric ve in Coil Concerto Pgla Hel Detach Sys 14mm 40cm - [id number] Implanted:Qty: 1 on 07/03/2022 by Timmy Brunner MD at [facility] Implant Left: Vein EV3 A [employer] [id number] / / [id number] Description:Short gastric ve in Coil Concerto Pgla [place] Detach Sys 14mm 30cm - [id number] Implanted:Qty: 1 on 07/03/2022 by Timmy Brunner MD at [facility] Implant Left: Vein EV3 A [employer] [id number] / / [id number] Description:Short gastric ve in Coil Concerto Pgla [place] Detach Sys 14mm 30cm - [id number] Implanted:Qty: 1 on 07/03/2022 by Timmy Burnner MD at [facility] Implant Left: Vein EV3 A [employer] [id number] / / [id number] Description:Short gastric ve in Coil Concerto Pgla [place] Detach Sys 14mm 30cm - [id number] Implanted:Qty: 1 on 07/03/2022 by Timmy Brunner MD at [facility] Implant Left: Vein EV3 A [employer] [id number] / / [id number] Description:Short gastric ve in Procedures Procedure Name Priority Date/Time Associated Diagnosis Comments SCANNED - LABS 02/23/2025 HEPATITIS PANEL, ACUTE Add-On 07/08/2024 10:33 PM EST LIPID PANEL Routine 10/15/2023 4:16 PM EDT Mixed hyperlipidemia from Last 3 Months or Most Recently Relevant to Health Maintenance Results * LABS SCANNED (02/23/2025) us Enedinanaty Mcguire APRN LAB BLOOD ORDERABLES Fin al Result * Hepatitis Panel, Acute (07/08/2024 10:33 PM EST) Pathologist [facility] [place] Hepatitis B Surface Ag Non-Reacti ve Non-Reacti ve 07/09/2024 2:07 PM EST [facility] Hep A IgM Non-Reacti ve Non-Reacti ve 07/09/2024 2:07 PM EST [facility] Hep B C IgM Non-Reacti ve Non-Reacti ve 07/09/2024 2:07 PM EST [facility] Hepatitis C Ab Non-Reacti ve Non-Reacti ve 07/09/2024 2:07 PM EST [facility] Blood Line / Unknown 07/08/2024 10 :33 PM EST 07/08/2024 10:42 PM EST [facility] - 07/09/2024 2:07 PM EST Results may be falsely decreased if patient taking Biotin. us Chiquis JACOME LAB BLOOD ORDERABLES Final Resu lt [facility]
[address] [place] [address], * (ABNORMAL) Lipid Panel (10/15/2023 4:16 PM EDT) Pathologist [facility] Total Cholesterol 234(H) 0 - 200 mg/dL 10/16/2023 2:33 AM EDT [facility] Triglycerides 203(H) 0 - 150 mg/dL 10/16/2023 2:33 AM EDT [facility] HDL Cholesterol 41 40 - 60 mg/dL 10/16/2023 2:33 AM EDT [facility] LDL Cholesterol 156(H) 0 - 100 mg/dL 10/16/2023 2:33 AM EDT [facility] VLDL Cholesterol 37 5 - 40 mg/dL 10/16/2023 2:33 AM EDT [facility] LDL/HDL Ratio 3.72 10/16/2023 2:33 AM EDT [facility] Blood Venipuncture / Unknown 10/15/2023 4:16 PM EDT 10/15/2023 4:16 PM EDT Narrative [facility] - 10/16/2023 2:33 AM EDT Cholesterol [...] APRN LAB BLOOD ORDERABLES Fin al Result [facility]
[address] [place] [address], [place] [phone] from Last 3 Months or Most Recently [...] Of Support Discussed With: Patient Care Teams Director Of Individual Giving Relationship Specialty Start Date End Date Enedina Mcguire APRN [address] [place] [address] PCP - General Nurse Practitioner 10/27/24
--- OUTSIDE RECORDS SUMMARY | 2025-03-13 14:28 | XMS_ITS | Encounter Summary ---
Author Organization [facility] Address [address] [place] [address] Care Team Providers Care Insurance Claims Representative Name Role Phone Enedina Mcguire APRN Primary Care Provider + Reason for Visit * Reason Comments Med Refill Encounter Details Date Type Department Care Team (Late st Contact Info) Description 07/20/2022 Refill [facility] GASTR[facility]OLOGY [address] [facility] [address] [place] [address] Lj Tapia APRN [address] [place] [address] Secondary esophageal varices without bleeding Social History [...] or training? Not on file Preferred Language Turkish 07/03/2022 Sex and Gender Information Value Date Recorded Sex Assigned at Male 08/20/2024 8:28 PM EDT Legal Sex Male 7:45 AM EDT Gender Identity Not on file Sexual Orientation Not on file documented as of this encounter Plan of Treatment Upcoming Encounters Date Type Department Care Team (Late st Contact Info) Description 05/18/2025 2:30 PM EST Office Visit [facility] INTERNAL MEDICINE [address] [place] [address] Enedina Mcguire APRN [address] [place], [place] [id number] 05/21/2025 12:30 PM EST Office Visit [facility] PAIN MANAGEMENT [address] [address] Vazquez Christie PA-C [address] [facility] [address] [place] [address] documented as of this encounter Visit Diagnoses Diagnosis Secondary esophageal varices without bleeding documented in this encounter Additional Health Concerns Infection Onset Date Last Indicated Resolved Time COVID Screen (preop/placement) 07/28/2022 07/28/2022 07/29/2022 12:00 AM EDT documented as of this encounter Care Teams Insurance Claims Representative Relationship Specialty Start Date End Date Enedina Mcguire APRN [address] [place] [address] [id number] PCP - General Nurse Practitioner 10/27/24 documented as of this encounter
--- OUTSIDE RECORDS SUMMARY | 2025-03-13 14:28 | XMS_ITS | Encounter Summary ---
Author Organization [facility] Address [address] [place] [address] Care Team Providers Care Pineapple Plantation Manager Name Role Phone Jony Conde MD Primary Care Provider [phone] Lj Tapia TRANSPORTATION DEPARTMENT HEAD Unavailable [phone] Enedina Mcguire TRANSPORTATION DEPARTMENT HEAD Primary Care Provider + Nuria Fall ORNAMENTAL BRONZE WORKER Unavailable Unavaila ble Encounter Details Date Type Department Care Team (Late st Contact Info) Description 07/04/2022 Orders Only External Location [address] [place] [address] Presley Montes De Oca MD [address] [place] [id number] Social History Tobacco Use Types Packs/Day Years [...] on filedocumented in this encounter Care Teams Pineapple Plantation Manager Relationship Specialty Start Date End Date Jony Conde MD [address] [place] [address] [address] [place], [place] [id number] PCP - General 07/18/22 12/03/22 Enedina Mcguire APRN [address] [place] [address] PCP - General 12/04/22 Lj Tapia APRN [address] [place] [address] [id number] Referring Physician Gastroenterology 07/18/22 Nuria Fall LPN [facility] TCM Nurse 07/24/24 08/23/24 documented as of this encounter
--- OUTSIDE RECORDS SUMMARY | 2025-03-13 14:28 | XMS_ITS | Encounter Summary ---
Author Organization [facility] Address [address] [place] [address] Care Team Providers Care Rotary Driller Prospecting Name Role Phone Jony Cnode MD Primary Care Provider [phone] Lj Tapia LEAD VULCANIZING OPERATOR Unavailable [phone] Enedina Mcguire LEAD VULCANIZING OPERATOR Primary Care Provider + Nuria Fall FIELD SALES EXECUTIVE Unavailable Unavaila ble Encounter Details Date Type Department Care Team (Late st Contact Info) Description 07/03/2022 Orders Only External Location [address] [place] [address] Presley Montes De Oca MD [address] [place] [id number] Social History Tobacco Use Types Packs/Day Years [...] on filedocumented in this encounter Care Teams Rotary Driller Prospecting Relationship Specialty Start Date End Date Jony Conde MD [address] [place] [address] [address] [place] [address] PCP - General 07/18/22 12/03/22 Enedina Mcguire APRN [address] [place] [address] PCP - General 12/04/22 Lj Tapia APRN [facility] [place], [place] [id number] Referring Physician Gastroenterology 07/18/22 Nuria Fall LPN [facility] TCM Nurse 07/24/24 08/23/24 documented as of this encounter
--- OUTSIDE RECORDS SUMMARY | 2025-03-13 14:28 | XMS_ITS | Encounter Summary ---
Author Organization [facility] Address [address] [place] [address] Care Team Providers Care Application Infrastructure Engineer Name Role Phone Enedina Mcguire NP Primary Care Provider + [phone] Maureen Pantoja RN Unavailable Unavail able Source [...] release of HIV test results or diagnoses. [id number] Reason for Visit * Reason Comments Results Encounter Details Date Type Department Care Team (Riky st Contact Info) Description 01/09/[address] [facility] Liver Transplant at [address] [address] Marisela Martinez MA Results Social [...] In the past 12 months has [employer], gas, oil, or water [employer] threatened to shut off services in your [...] results so Txp MA can enter into [employer] and RN Txp Coordinator can review. Patient was asked by Kidney Txp Provider to repeat labs today to check magnesium level. Will await all results. * Marisela Martinez MA - 01/09/2025 1:37 PM EDT Pts outpt lab [facility] called with a critical lab [...] as of this encounter Care Teams Application Infrastructure Engineer Relationship Specialty Start Date End Date Enedina Mcguire NP [address] [place] [address] PCP - General Internal Medicine 10/05/24 Maureen Pantoja, RN Txp Post Coordinator Transplant Hepatology 10/28/24 documented as of this encounter
--- OUTSIDE RECORDS SUMMARY | 2025-03-13 14:28 | XMS_ITS | Encounter Summary ---
Author Organization [facility] Address [address] [place] [address] Care Team Providers Care Blindstitch Lining Feller Name Role Phone Enedina Mcguire NP Primary Care Provider + [phone] Maureen Pantoja RN Unavailable Unavail able Chris Orosco MD Unavailable [phone] Source Comments This information has been disclosed [...] release of HIV test results or diagnoses. [id number] Encounter Details Date Type Department Care Team (Late st Contact Info) Description 03/10/2025 Telephone [facility] Kidney Transplant at [address] [address] Lizeth Walden, RN Social History Tobacco Use Types Packs/Day Years Used Date Smoking Tobacco: Former Cigarettes Smokeless Tobacco: Current Alcohol Use Standard Drinks/Week Comments Yes 0 (1 standard drink = 0.6 oz pure alcohol) History of alcohol abuse, reports no use in 3 week- typically endorses use as 4 glasses of wine a days Utilities Answer Date Recorded In the past 12 months has [employer], gas, oil, or water [employer] threatened to shut off services in your [...] Telephone Encounter - Lizeth Walden RN - 03/10/2025 3:28 PM EDT Images from the original note were not included. Reviewed labs with Dr. Gonzalez: Latest Ref Rng & Units 02/24/2025 1:03 PM 03/04/2025 11:29 AM 03/10/2025 9:29 AM Renal Panel BUN (USE PT. THRESHOLDS) 18 18 13 Calcium (USE PT. THRESHOLDS) 9.4 9.4 9.2 Chloride (USE PT. THRESHOLDS) 99 98 100 Carbon Dioxide (CO2) (USE PT. THRESHOLDS) 13 - 22 mmol/L 26 27 28 Creatinine (USE PT. THRESHOLDS) 1.00 1.20 1.30 Phosphorus (USE PT. THRESHOLDS) 2.5 - 4.9 mg/dL 4.6 4.4 5.0 Potassium (USE PT. THRESHOLDS) 4.1 3.7 3.9 Sodium (USE PT. THRESHOLDS) 140 138 138 Latest Ref Rng & Units 02/24/2025 1:03 PM 03/04/2025 11:29 AM 03/10/2025 9:29 AM CBC WBC (USE PT. THRESHOLDS) 10^3/mL 7.5 7.7 5.6 RBC (USE PT. THRESHOLDS) 4.50 - 5.90 10^6/??L 3.92 3.88 3.98 Hemoglobin (USE PT. THRESHOLDS) 13.5 - 17.5 g/dL 12.9 13.0 13.5 Hematocrit (USE PT. THRESHOLDS) 41 - 53 % 36.5 36.3 38.2 MCV (USE PT. THRESHOLDS) 82.0 - 108.0 fL 93.1 93.6 96.0 MCH (USE PT. THRESHOLDS) 26.0 - 34.0 pg 32.9 33.5 33.9 MCHC (USE PT. THRESHOLDS) 30 - 37 g/dL 35.3 35.8 35.3 RDW (USE PT. THRESHOLDS) 11.5 - 14.5 % 13.7 14.4 14.9 Platelet Count (USE PT. THRESHOLDS) K/??L 101 115 168 Lab Results Component Value Date TACROLMSLCMS 6.5 01/30/2025 Plan of care per provider: Start slow mag 2 tabs bid Repeat labs Sunday Any new meds? Spoke to patient. He states that he is currently taking slow mag 2 tabs bid, but is supposed to be taking 2 tabs TID, he denied starting any new medications. Discussed with Dr. Gonzalez who then advisedgoing to local ER for mag infusion due to critical mag level while being on supplements. Patient refusing ER at this time stating that he has been in the hospital a lot lately. Reviewed possible adverse effects from hypomagnesemia including seizures and arrhythmia. Patient expressed understanding. He was agreeable to increasing mag to 2 tabs tid and increasing mag in diet. Patient states he will repeat labs on Sunday instead of next week and will continue going to ER if mag level is the same. documented in this encounter Plan of Treatment Not on file documented as of this encounter Visit Diagnoses Not on filedocumented in this encounter Additional Health Concerns Infection Onset Date Last Indicated Resolved Time C. difficile 01/28/2025 01/28/2025 Assessment Noted Time PHQ-9 Depression Total Score: 2 12/11/19 9:00 AM EDT documented as of this encounter Care Teams Blindstitch Lining Feller Relationship Specialty Start Date End Date Enedina Mcguire NP [address] [place] [address] PCP - General Internal Medicine 10/05/24 Maureen Pantoja RN Txp Post Coordinator Transplant Hepatology 10/28/24 Chris Orosco MD [address] [place] [address] [address] [place] [address] Consulting Physician Transplant Hepatology 02/26/25 documented as of this encounter
--- OUTSIDE RECORDS SUMMARY | 2025-03-13 14:28 | XMS_ITS | Encounter Summary ---
Author Organization [facility] Address [address] [place] [address] Care Team Providers Care Pharmaceutical Sales Representative Name Role Phone Enedina Mcguire NP Primary Care Provider + [phone] Maureen Pantoja RN Unavailable Unavail able Chris Orosco MD Unavailable +[phone] Source Comments This information has been disclosed [...] release of HIV test results or diagnoses. [id number] Health Reason for Visit * Reason Comments Critical Lab Results Encounter Details Date Type Department Care Team (Late st Contact Info) Description 03/13/2025 Telephone [facility] Liver Transplant at [address] [address] Mitzy Gill MA Critical Lab Results Social History Tobacco [...] Recorded In the past 12 months has [employer], gas, oil, or water company threatened [...] Progress Notes * Maureen Pantoja RN - 03/13/2025 8:33 AM EDT Hardcopy of urine culture results uploaded to Media tab. UA looks fine. Forwarded to Kidney Transplant Team for any necessary follow-up. Patient's standing liver transplant labs are being collected weekly, as are UA and urine culture. * Mitzy Gill MA - 03/13/2025 8:23 AM EDT Ashley from [facility] lab called to report critical lab value for Pt. Urine Culture grew Enterococcus faecium which is vancomycin resistant. Urine was collected on 03/11/25 Results will be faxed to our office and entered once received. documented in this encounter Plan of Treatment Not on file documented as of this encounter Visit Diagnoses Not on filedocumented in this encounter Additional Health Concerns Infection Onset Date Last Indicated Resolved Time C. difficile 01/28/2025 01/28/2025 Assessment Noted Time PHQ-9 Depression Total Score: 2 12/11/19 25 9:00 AM EDT documented as of this encounter Care Teams Pharmaceutical Sales Representative Relationship Specialty Start Date End Date Enedina Mcguire NP [address] [place] [address] PCP - General Internal Medicine 10/05/24 Maureen Pantoja, ЮЛИЯ Txp Post Coordinator Transplant Hepatology 10/28/24 Chris Orosco MD [address] [place] [address] 3200 [facility] [place] [address] Consulting Physician Transplant Hepatology 02/26/25 documented as of this encounter
--- OUTSIDE RECORDS SUMMARY | 2025-03-13 14:28 | XMS_ITS | Encounter Summary ---
Author Organization [facility] Address [address] [place] [address] Care Team Providers Care Safety Attendant Name Role Phone Enedina Mcguire NP Primary Care Provider + [phone] Maureen Pantoja RN Unavailable Unavail able Source [...] release of HIV test results or diagnoses. [id number] Health Encounter Details Date Type Department Care Team (Late st Contact Info) Description 01/09/2025 Chart Note [facility] Liver Transplant at [address] [place] [phone] Marlene Ro MA 01/09 Labs entered from [facility] [...] Recorded In the past 12 months has [employer], gas, oil, or water [employer] threatened to shut off services in your [...] 2:24 PM EDT 01/09 Labs entered from [facility] [...] Magnesium 1.3(A) 1.6 - 2.4 mg/dL Plasma [facility] Provider MD LAB BLOOD ORDERABLES Denisse [...] 1.8 10^3/mL Blood Narrative Resulting Agency Comment [facility] LAB BLOOD ORDERABLES Denisse l Result * (ABNORMAL) Renal Function Panel w/o EGFR (01/09/2025 12:23 PM EDT) Glucose 108 BUN 20 CO2 23(A) 13 - 22 mmol/L Creatinine 0.90 Potassium 4.3 Sodium 138 Chloride 107 Phosphorus 4.4 2.5 - 4.9 mg/dL Calcium 10.1 EGFR 93 mg/dL Albumin 5.0 3.5 - 5.0 g/dL Blood Narrative Resulting Agency Comment [facility] LAB BLOOD ORDERABLES Denisse l Result * Creatinine, urine, random (01/09/2025 12:23 PM EDT) Creatinine, Urine 66 Urine Narrative Resulting Agency Comment [facility] Result [facility] Provider URINE ORDERABLES Final Re sult * Urinalysis w/Rfl to Microscopic (01/09/2025 12:23 PM EDT) Glucose, UA Negative Negative Ketones, UA Negative Negative Blood, UA Negative Negative Bilirubin, UA Negative Negative Urobilinogen, UA Normal Normal Protein, UA Negative Negative Leukocyte Esterase, UA Negative Negative pH, UA 6.0 4.5 - 8.0 Specific Alex, UA 1.020 1.005 - 1.030 Clarity, UA Clear Clear Color, UA Yellow Light Yellow, Yellow Urine Narrative Resulting Agency Comment [facility] Result [facility] Provider URINE ORDERABLES Final Re sult * Urine Protein, Tot, Random (w/o Creat) (01/09/2025 12:23 PM EDT) Total Protein, Ur 15.0 Urine Narrative Resulting Agency Comment [facility] Result [facility] Provider URINE ORDERABLES Final Re sult * Hepatic Function Panel (01/09/2025 12:23 PM EDT) Bilirubin, Direct 0.4 Bilirubin, Indirect 0.6 Alkaline Phosphatase 57 ALT 13 AST 22 Total Bilirubin 1.0 Total Protein 7.3 Plasma Narrative Resulting Agency Comment [facility] Result [facility] Provider LAB BLOOD ORDERABLES Denisse l Result * Urine culture (01/06/2025 12:23 PM EDT) Urine Culture, Comprehensive no growth URINE SPECIMEN / Unknown Result [facility] Provider MICROBIOLOGY - GENERAL OR [...] documented as of this encounter Care Teams Safety Attendant Relationship Specialty Start Date End Date Enedina Mcguire NP [address] [place] [address] PCP - General Internal Medicine 10/05/24 Maureen Pantoja, RN Txp Post Coordinator Transplant Hepatology 10/28/24 documented as of this encounter
--- OUTSIDE RECORDS SUMMARY | 2025-03-13 14:28 | XMS_ITS | Encounter Summary ---
Author Organization [facility] Address [address] [place] [address] Care Team Providers Care Leader Writer Name Role Phone Enedina Mcguire NP Primary Care Provider + [phone] Maureen Pantoja RN Unavailable Unavail able Source [...] release of HIV test results or diagnoses. [id number] Reason for Visit * Reason Comments Results Encounter Details Date Type Department Care Team (Late st Contact Info) Description 01/23/2025 Telephone [facility] Liver Transplant at [address] [address] Maureen Pantoja, RN Results Social [...] Recorded In the past 12 months has [employer], gas, oil, or water company threatened to [...] that he is on his way to [facility] ED. Message routed to Inpatient Txp Team. * Maureen Pantoja RN - 01/27/2025 2:28 PM EDT Reviewed with Dr. Alonzo who recommends that patient go to ED. Local [place], but would prefer [facility] to do full infectious work-up in context of febrile neutropenia. Spoke with patient again. Patient very reluctant to go to ED. Advised [place] to go to local hospital, but that he needs further testing to rule out infection and get treatment if needed. Patient agreeable to going to local hospital. Patient requested [employer] message stating what to tell medical center enterprise ED. Message sent. * Maureen Pantoja RN [...] 01/27/2025 10:25 AM EDT FK 11.3 Received [employer] message from patient's that patient began feeling [...] documented as of this encounter Care Teams Leader Writer Relationship Specialty Start Date End Date Enedina Mcguire NP [address] [place] [address] PCP - General Internal Medicine 10/05/24 Maureen Pantoja, RN Txp Post Coordinator Transplant Hepatology 10/28/24 documented as of this encounter
--- OUTSIDE RECORDS SUMMARY | 2025-03-13 14:28 | XMS_ITS | Encounter Summary ---
Author Organization [facility] Address [address] [place] [address] Care Team Providers Care Radiology Teacher Name Role Phone Enedina Mcguire NP Primary Care Provider + [phone] Maureen Pantoja RN Unavailable Unavail able Chris Orosco MD Unavailable [phone] Source Comments This information has been disclosed [...] release of HIV test results or diagnoses. [id number] Health Reason for Visit * Reason Comments Results Encounter Details Date Type Department Care Team (Late st Contact Info) Description 03/10/2025 Telephone [facility] Liver Transplant at [address] [address] Maureen Pantoja, ЮЛИЯ Results Social [...] Recorded In the past 12 months has [employer], gas, oil, or water company threatened to [...] Progress Notes * Maureen Pantoja RN - 03/12/2025 8:04 AM EDT CMV negative. Post-prophylaxis monitoring complete. * Maureen Pantoja RN - 03/10/2025 2:09 PM EDT Lab results from 03/10/25 reviewed. Mag 0.9 - Patient previously on mag supplementation per Kid Txp, however is no longer on medlist?? Cr 1.3 (from 1.2); BUN 13 (from 18). LFTs improving. Alk phos 102 (from 155), AST/ALT 26/28 (from 47/39). FK pending. Will follow-up. CMV PCR post-prophylaxis 3 of 3 pending. Will follow-up. Current IS: FK 6 mg BID MMF 250 mg BID (restarted 02/26/25) Prednisone 5 mg daily documented in this encounter Miscellaneous Notes * Telephone Encounter - Maureen Pantoja RN - 03/10/2025 3:50 PM EDT Mag level addressed by Kidney Txp Team, see separate encounter. Patient repeating labs on Sunday. documented in this encounter Plan of Treatment Not on file documented as of this encounter Visit Diagnoses Not on filedocumented in this encounter Additional Health Concerns Infection Onset Date Last Indicated Resolved Time C. difficile 01/28/2025 01/28/2025 Assessment Noted Time PHQ-9 Depression Total Score: 2 12/11/19 25 9:00 AM EDT documented as of this encounter Care Teams Radiology Teacher Relationship Specialty Start Date End Date Enedina Mcguire NP [address] [place] [address] PCP - General Internal Medicine 10/05/24 Maureen Pantoja, RN Txp Post Coordinator Transplant Hepatology 10/28/24 Chris Orosco MD [address] [facility] [address] [place] [address] Consulting Physician Transplant Hepatology 02/26/25 documented as of this encounter
--- OUTSIDE RECORDS SUMMARY | 2025-03-13 14:28 | XMS_ITS | Encounter Summary ---
Author Organization [facility] Address [address] [place] [address] Care Team Providers Care Transit Clerk Name Role Phone Enedina Mcguire APRN Primary [...] alcohol) 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 [facility] Utilities Answer Date Recorded In the past 12 months has [employer], gas, oil, or water [employer] threatened to shut off services in your [...] Brief Depression Severity Measure Score 0 10/02/2022 [facility] - Occupational Stress [...] GED or equivalent No 07/09/2024 Preferred Language Nepalese 07/09/2024 PHQ-2 Answer Date Recorded Patient Health [...] [facility] INTERNAL MEDICINE [address] [place] [address] Enedina Mcguire APRN [address] [place] [phone] 05/21/2025 12:30 PM EST Office Visit [facility] PAIN MANAGEMENT [address] [address] Vazquez Christie PA-C [address] [place] [address] documented as of this encounter Visit Diagnoses Not on filedocumented in this encounter Additional Health Concerns Assessment Noted Time PHQ-2 Depression Total Score: 1 12/31/19 24 3:25 PM EDT documented as of this encounter Care Teams Transit Clerk Relationship Specialty Start Date End Date Enedina Mcguire APRN [address] [place] [address] [id number] PCP - General Nurse Practitioner 10/27/24 documented as of this encounter
--- OUTSIDE RECORDS SUMMARY | 2025-03-13 14:28 | XMS_ITS | Encounter Summary ---
Author Organization [facility] Address [address] [place] [address] Care Team Providers Care Bulk Pigment Reducer Name Role Phone Enedina Mcguire NP Primary Care Provider + [phone] Maureen Pantoja RN Unavailable Unavail able Source [...] release of HIV test results or diagnoses. [id number] Reason for Visit * Reason Onset Date Comments Medication Refill 01/21/2025 Encounter Details Date Type Department Care Team (Late st Contact Info) Description 01/21/2025 Refill [facility] Liver Transplant at [address] [address] Harvey Domínguez III, MD [address] [place] [address] Encounter for therapeutic drug monitoring; S/P liver transplant ([facility]); Hypomagnesemia; Kidney transplant recipient; Hypertension, unspecified [...] the past 12 months has th e [employer], gas, oil, or water company threatened to [...] therapeutic drug monitoring S/P liver transplant ([facility]) Hypomagnesemia Disorders of magnesium metabolism [...] documented as of this encounter Care Teams Bulk Pigment Reducer Relationship Specialty Start Date End Date Enedina Mcguire NP [address] [place] [address] PCP - General Internal Medicine 10/05/24 Maureen Pantoja, RN Txp Post Coordinator Transplant Hepatology 10/28/24 documented as of this encounter
--- OUTSIDE RECORDS SUMMARY | 2025-03-13 14:28 | XMS_ITS | Encounter Summary ---
Author Organization [facility] Address [address] [place] [address] Care Team Providers Care Node Js Developer Name Role Phone Enedina Mcguire NP Primary Care Provider + [phone] Maureen Pantoja RN Unavailable Unavail able Source [...] release of HIV test results or diagnoses. [id number] Reason for Visit * Reason Comments Medication Management Encounter Details Date Type Department Care Team (Late st Contact Info) Description 01/26/2025 Telephone [facility] Liver Transplant at [address] [address] Maureen Pantoja, chief enterprise architect Management Social History Tobacco Use Types Packs/Day Years Used Date Smoking Tobacco: Former Cigarettes Smokeless Tobacco: Current Alcohol Use Standard Drinks/Week Comments Yes 0 (1 standard drink = 0.6 oz pure alcohol) History of alcohol abuse, reports no use in 3 week- typically endorses use as 4 glasses of wine a days Utilities Answer Date Recorded In the past 12 months has [employer], gas, oil, or water [employer] threatened to shut off services in your [...] today. Med list updated. Patient notified via [employer]. CMV monitoring DUE ~ 02/09, 02/23, 03/09. CMV PCR orders placed. Txp MA to send to outside lab. 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
--- OUTSIDE RECORDS SUMMARY | 2025-03-13 14:28 | XMS_ITS | Encounter Summary ---
Author Organization [facility] Address [address] [place] [address] Care Team Providers Care Director Of Group Counseling Program Name Role Phone Jony Conde MD Primary Care Provider [phone] Lj Tapia SUPERVISOR FRAME ASSEMBLY Unavailable [phone] Enedina Mcguire SUPERVISOR FRAME ASSEMBLY Primary Care Provider + Nuria Fall CEMETERY WORKERS SUPERVISOR Unavailable Unavaila ble Encounter Details Date Type Department Care Team (Late st Contact Info) Description 07/04/2022 Orders Only External Location [address] [place] [address] Presley Montes De Oca MD [address] [place] [id number] Social History Tobacco Use Types Packs/Day Years [...] in this encounter Care Teams Director Of Group Counseling Program Relationship Specialty Start Date End Date Jony Conde MD [address] [facility] [address] [place] [address] PCP - General 07/18/22 12/03/22 Enedina Mcguire APRN [address] [place] [address] PCP - General 12/04/22 Lj Tapia APRN [address] [place] [address] Referring Physician Gastroenterology 07/18/22 Nuria Fall LPN [facility] TCM Nurse 07/24/24 08/23/24 documented as of this encounter
--- OUTSIDE RECORDS SUMMARY | 2025-03-13 14:28 | XMS_ITS | Encounter Summary ---
Author Organization [facility] Address [address] [place] [address] Care Team Providers Care Rotating Field Assembler Name Role Phone Enedina Mcguire NP Primary Care Provider + [phone] Maureen Pantoja RN Unavailable Unavail able Chris Orosco MD Unavailable [phone] Source Comments This information has been disclosed [...] release of HIV test results or diagnoses. [id number] Reason for Visit * Reason Comments Medication Refill Encounter Details Date Type Department Care Team (Late st Contact Info) Description 03/12/2025 Refill [facility] Liver Transplant at [address] [address] Lydia Sanchez MD [address] [place] [address] Liver[place] [address] Encounter for therapeutic drug monitoring; [...] the past 12 months has th e [employer], oil, or water [employer] threatened to shut off services in your [...] documented as of this encounter Care Teams Rotating Field Assembler Relationship Specialty Start Date End Date Enedina Mcguire NP [address] [place] [address] PCP - General Internal Medicine 10/05/24 Maureen Pantoja, RN Txp Post Coordinator Transplant Hepatology 10/28/24 Chris Orosco MD [address] [place] [address] 3[address] [place] [address] Consulting Physician Transplant Hepatology 02/26/25 documented as of this encounter
--- OUTSIDE RECORDS SUMMARY | 2025-03-13 14:28 | XMS_ITS | Encounter Summary ---
Author Organization [facility] Address [address] [place] [address] Care Team Providers Care Seal Mixer Name Role Phone Enedina Mcguire APRN Primary Care Provider + Encounter Details Date Type Department Care Team ([facility] st Contact Info) Description 10/07/2024 Results Follow-Up [facility] INTERNAL MEDICINE [address] [place] [address] Enedina Mcguire APRN [address] [place], [place] [id number] Social History Tobacco Use Types Packs/Day Years [...] Recorded In the past 12 months has [employer], [employer], oil, or water [employer] threatened to shut off services in [...] GED or equivalent No 07/09/2024 Preferred Language Tamazight 07/09/2024 PHQ-2 Answer Date Recorded Patient Health [...] Description 05/18/2025 2:30 PM EST Office Visit [facility] INTERNAL MEDICINE [address] [place] [address] Enedina Mcguire APRN [address] [place] [address] 05/21/2025 12:30 PM EST Office Visit [facility] PAIN MANAGEMENT [address] [facility] [address] [place] [address] Vazquez Christie PA-C [address] [place] [address] [place] [address] documented as of this encounter Visit Diagnoses Not on filedocumented in this encounter Additional Health Concerns Assessment Noted Time PHQ-2 Depression Total Score: 1 12/31/19 24 3:25 PM EDT documented as of this encounter Care Teams Seal Mixer Relationship Specialty Start Date End Date Enedina Mcguire APRN [address] [place] [address] [id number] PCP - General Nurse Practitioner 10/27/24 documented as of this encounter
--- OUTSIDE RECORDS SUMMARY | 2025-03-13 14:28 | XMS_ITS | Encounter Summary ---
[facility] Address [address] [place] [address] Care Team Providers Care Tube Room Cashier Name Role Phone Enedina Mcguire APRN Primary Care Provider + Reason for Visit * Reason Comments Med Refill Encounter Details Date Type Department Care Team (Late st Contact Info) Description 09/12/[address] [facility]STR[facility] [address] [facility] [address] [place] [address] Lj Tapia APRN [address] [place] [address] Social History Tobacco Use Types Packs/Day Years [...] or training? Not on file Preferred Language Uruguayan 07/03/2022 Sex and Gender Information Value Date [...] [facility] INTERNAL MEDICINE [address] [place] [phone] Enedina Mcguire APRN [address] [place] [address] 05/21/2025 12:30 PM EST Office Visit [facility] PAIN MANAGEMENT [address] [address] Vazquez Christie PA-C [address] [facility] [address] [place], [place] [phone] documented as of this encounter Visit Diagnoses Not on filedocumented in this encounter Care Teams Tube Room Cashier Relationship Specialty Start Date End Date Enedina Mcguire APRN [address] [place] [address] PCP - General Nurse Practitioner 10/27/24 documented as of this encounter
--- OUTSIDE RECORDS SUMMARY | 2025-03-13 14:28 | XMS_ITS | Encounter Summary ---
[facility] Address [address] [place] [address] Care Team Providers Care Roofing Contractor Name Role Phone Enedina Mcguire APRN Primary Care Provider + Encounter Details Date Type Department Care Team (Late st Contact Info) Description 03/02/2025 Telephone [facility] PAIN MANAGEMENT [address] [address] Georgina Rainey MA Social History [...] Recorded In the past 12 months has [employer], [employer], oil, or water [employer] threatened to shut [...] Brief Depression Severity Measure Score 0 10/02/2022 [facility] - Occupational Stress Questionnaire Answer Date [...] [facility] INTERNAL MEDICINE [address] [place] [phone] Enedina Mcguire, SALES REPRESENTATIVE [facility] [address] [place] [address] 05/21/2025 12:30 PM EST Office Visit [facility] PAIN MANAGEMENT [address] [phone] Vazquez Christie PA-C [address] [place] [phone] documented as of this encounter Visit Diagnoses Not on filedocumented in this encounter Additional Health Concerns Assessment Noted Time PHQ-2 Depression Total Score: 1 12/31/19 24 3:25 PM EDT documented as of this encounter Care Teams Roofing Contractor Relationship Specialty Start Date End Date Enedina Mcguire APRN [address] [place] [address] PCP - General Nurse Practitioner 10/27/24 documented as of this encounter
--- OUTSIDE RECORDS SUMMARY | 2025-03-13 14:28 | XMS_ITS | Encounter Summary ---
Author Organization [facility] Address [address] [place] [address] Care Team Providers Care Prize Coordinator Name Role Phone Enedina Mcguire NP Primary Care Provider + [phone] Maureen Pantoja RN Unavailable Unavail able Source [...] release of HIV test results or diagnoses. [id number] Reason for Visit * Reason Onset Date Comments Medication Refill 01/21/2025 Encounter Details Date Type Department Care Team (Late st Contact Info) Description 01/21/2025 Refill [facility] Liver Transplant at [address] [place] [address] Rose Montelongo MD [facility] [address] [place], [place] [id number] Social History Tobacco Use Types Packs/Day Years Used Date Smoking Tobacco: Former Cigarettes Smokeless Tobacco: Current Alcohol Use Standard Drinks/Week Comments Yes 0 (1 standard drink = 0.6 oz pure alcohol) History of alcohol abuse, reports no use in 3 week- typically endorses use as 4 glasses of wine a days Utilities Answer Date Recorded In the past 12 months has [employer], gas, oil, or water [employer] threatened to shut off services in your [...] documented as of this encounter Care Teams Prize Coordinator Relationship Specialty Start Date End Date Enedina Mcguire NP [address] [place] [address] PCP - General Internal Medicine 10/05/24 Maureen Pantoja, ЮЛИЯ Txp Post Coordinator Transplant Hepatology 10/28/24 documented as of this encounter
--- OUTSIDE RECORDS SUMMARY | 2025-03-13 14:28 | XMS_ITS | Encounter Summary ---
Author Organization [facility] Address [address] [place] [address] Care Team Providers Care Hand Stitcher Name Role Phone Enedina Mcguire NP Primary Care Provider + [phone] Maureen Pantoja RN Unavailable Unavail able Chris Orosco MD Unavailable [phone] Source Comments This information has been disclosed [...] release of HIV test results or diagnoses. [id number] Health Reason for Visit * Reason Comments Critical Lab Results Encounter Details Date Type Department Care Team (Late st Contact Info) Description 03/10/2025 Telephone [facility] Liver Transplant at [address] [place] [address] Marisela Martinez MA Critical Lab [...] Recorded In the past 12 months has [employer], gas, oil, or water company threatened to [...] Progress Notes * Marisela Martinez MA - 03/10/2025 10:39 AM EDT Shivani called from pts outpt lab [facility] to report that pt has a critical lab value from 03/10 at 9:22am Magnesium is 0.9 Lab results will be faxed to the office per Shivani. documented in this encounter Miscellaneous Notes * Telephone Encounter - Lizeth Walden RN - 03/10/2025 3:47 PM EDT Addressed in another encounter documented in this encounter Plan of Treatment Not on file documented as of this encounter Visit Diagnoses Not on filedocumented in this encounter Additional Health Concerns Infection Onset Date Last Indicated Resolved Time C. difficile 01/28/2025 01/28/2025 Assessment Noted Time PHQ-9 Depression Total Score: 2 12/11/19 9:00 AM EDT documented as of this encounter Care Teams Hand Stitcher Relationship Specialty Start Date End Date Enedina Mcguire NP [address] [place] [address] PCP - General Internal Medicine 10/05/24 Maureen Pantoja, ЮЛИЯ Txp Post Coordinator Transplant Hepatology 10/28/24 Chris Orosco MD [address] [place] [address] [address] [place] [address] Consulting Physician Transplant Hepatology 02/26/25 documented as of this encounter
--- OUTSIDE RECORDS SUMMARY | 2025-03-13 14:28 | XMS_ITS | Encounter Summary ---
Author Organization [facility] Address [address] [place] [address] Care Team Providers Care Glass Blower Helper Name Role Phone Enedina Mcguire NP Primary Care Provider + [phone] Maureen Pantoja RN Unavailable Unavail able Source [...] release of HIV test results or diagnoses. [id number] Health Encounter Details Date Type Department Care Team (Late st Contact Info) Description 01/20/2025 Chart Note [facility] Liver Transplant at [address] [place] [phone] Marlene Ro MA 01/20 Labs entered from [facility] Social [...] Recorded In the past 12 months has [employer], gas, oil, or water [employer] threatened to shut off services in your [...] were not included. 01/20 Labs entered from [facility] documented [...] Tacrolimus level (01/20/2025 12:03 PM EDT) Pathologist [facility] Tacrolimus Lvl 11.3 6 - 15 ng/mL Whole Blood Result [facility] Provider LAB BLOOD ORDERABLES Denisse l Result * (ABNORMAL) Magnesium (01/20/2025 12:03 PM EDT) [facility] [address] [facility] Magnesium 1.1(A) 1.6 - 2.4 mg/dL Plasma Narrative Resulting Agency Comment [facility] Result [facility] LAB BLOOD ORDERABLES Denisse l Result * (ABNORMAL) Renal Function Panel w/o EGFR (01/20/2025 12:03 PM EDT) [facility] [address] Glucose 101 BUN 14 CO2 23(A) 13 - 22 mmol/L Creatinine 1.10 Potassium 3.8 Sodium 141 Chloride 106 Phosphorus 4.2 2.5 - 4.9 mg/dL Calcium 10.2 EGFR 74 mg/dL Albumin 4.9 3.5 - 5.0 g/dL Blood Narrative Resulting Agency Comment [facility] Result [facility] LAB BLOOD ORDERABLES Denisse l Result * Creatinine, urine, random (01/20/2025 12:03 PM EDT) [facility] [address] Creatinine, Urine 78 Urine Narrative Resulting Agency Comment [facility] Result [facility] Provider URINE ORDERABLES Final Re sult * (ABNORMAL) Urinalysis w/Rfl to Microscopic (01/20/2025 12:03 PM EDT) [facility] [address] Glucose, UA Negative Negative Ketones, UA Negative Negative Blood, UA Negative Negative Bilirubin, UA Negative Negative Urobilinogen, UA Normal Normal Protein, UA Trace(A) Negative Nitrite, UA Negative Negative pH, UA 5.5 4.5 - 8.0 Specific [place], UA 1.020 1.005 - 1.030 Clarity, UA Clear Clear Color, UA Yellow Light Yellow, Yellow Urine Narrative Resulting Agency Comment [facility] Result [facility] Provider URINE ORDERABLES Final Re [...] 10^3/mL Blood Narrative Resulting Agency Comment [facility] Result [facility] Provider LAB BLOOD ORDERABLES Denisse l Result * Urine Protein, Tot, Random (w/o Creat) (01/20/2025 12:03 PM EDT) Total Protein, Ur 25.0 Urine Narrative Resulting Agency Comment [facility] Result [facility] Provider URINE ORDERABLES Final Re sult * Hepatic Function Panel (01/20/2025 12:03 PM EDT) Bilirubin, Direct 0.2 Bilirubin, Indirect 0.6 Alkaline Phosphatase 52 ALT 20 AST 28 Total Bilirubin 0.8 Total Protein 7.1 Plasma Narrative Resulting Agency Comment [facility] us Historical Provider LAB BLOOD [...] as of this encounter Care Teams Glass Blower Helper Relationship Specialty Start Date End Date Enedina Mcguire NP [address] [place] [address] PCP - General Internal Medicine 10/05/24 Maureen Pantoja, ЮЛИЯ Txp Post Coordinator Transplant Hepatology 10/28/24 documented as of this encounter
--- OUTSIDE RECORDS SUMMARY | 2025-03-13 14:29 | XMS_ITS | Clinical Summary ---
Author Organization [facility] Address [address] [place] [id number] Care Team Providers Care Mechanical Test Engineer Name Role Phone Enedina Mcguire NP Primary Care Provider [phone] Maureen Pnatoja RN Unavailable Unavail able Chris Orosco MD Unavailable [phone] Source Comments This information has been disclosed [...] therelease of HIV test results or diagnoses. [id number] Allergies Active Allergy Reactions Criticality [...] a week. 4 capsule 2 025 Active naltrexone (DEPADE) 50 mg tablet Take 1 tablet (50 mg total) by mouth daily. 30 tablet 5 025 Active methocarbamoL (ROBAXIN) 500 MG tablet Take 2 tablets (1,000 mg total) by mouth 3 times a day. 120 tablet 01/31/20 25 11:36 AM EDT 025 Active cyclobenzaprine (FLEXERIL) 5 MG tablet [...] Encounter for therapeutic drug monitoring,S/P [place]Hypomagn esemia,Kidney transplant recipient,Hyperten kevin, unspecified [...] :Encounter for therapeutic drug monitoring,S/P liver [place]Hypomagn esemia,Kidney transplant recipient,Hyperten kevin, unspecified type,Gastroesophag eal reflux disease, unspecified whether esophagitis present Take 1 capsule (250 mg total) by mouth 2 times a day. 60 capsule 5 025 Active tacrolimus (PROGRAF) 1 MG capsuleIndications :Prevention of Kidney Transplant Rejection,Preventi on of Liver Transplant Rejection Take 6 capsules (6 mg total) by mouth 2 times a day. Indications: Prevention of Kidney Transplant Rejection, Prevention of Liver Transplant Rejection 360 capsule 5 Active predniSONE (DELTASONE) 5 MG tablet Take 1 tablet (5 mg total) by mouth daily. Active NIFEdipine (PROCARDIA-XL) 30 MG (OSM) 24 hr tabletIndications: Encounter for therapeutic drug monitoring,S/P liver transplant [place]Hypomagn esemia,Kidney transplant recipient,Hyperten kevin, unspecified type,Gastroesophag eal reflux disease, unspecified whether esophagitis present Take 1 tablet by mouth once daily 30 tablet Active magnesium chloride (SLOW MAG) 71.5 mg TbECIndications:hy pomagnesemia Take 2 tablets (143 mg total) by mouth 3 times a day. Indications: hypomagnesemia 180 tablet 2 025 02/12 famotidine (PEPCID) 20 MG tabletIndications: Encounter for therapeutic drug monitoring,S/P liver [place]Hypomagn esemia,Kidney transplant recipient,Hyperten kevin, unspecified type,Gastroesophag eal reflux disease, unspecified whether esophagitis present Take 1 tablet (20 mg total) by mouth 2 times a day. 60 tablet 2 025 02/26 Discontinued mycophenolate (CELLCEPT) 250 mg capsuleIndications :Encounter for therapeutic drug monitoring,S/P liver [place]Hypomagn esemia,Kidney transplant recipient,Hyperten kevin, unspecified type,Gastroesophag eal reflux disease, unspecified whether esophagitis present Take 2 capsules (500 mg total) by mouth 2 times a day. 120 capsule 5 025 02/26 Discontinued( Refill / Reorder) NIFEdipine (PROCARDIA-XL) 30 MG (OSM) 24 hr tabletIndications: Encounter for therapeutic drug monitoring,S/P liver transplant [place] [place]Hypomagn esemia,Kidney transplant recipient,Hyperten kevin, unspecified type,Gastroesophag eal reflux disease, unspecified whether esophagitis present Take 1 tablet by mouth once daily 30 tablet 2 03/12 Discontinued tacrolimus (PROGRAF) 1 MG capsuleIndications :Prevention [...] :Encounter for therapeutic drug monitoring,S/P liver transplant ([facility]),Hypomagn esemia,Kidney transplant recipient,Hyperten kevin, unspecified type,Gastroesophag eal reflux disease, unspecified whether esophagitis present Take 1 capsule (100 mg total) by mouth 2 times a day. Work on decreasing to one capsule daily. 60 capsule 02/12 Discontinued( Refill / Reorder) acetaminophen (TYLENOL) 325 MG tablet Take 3 tablets (975 mg total) by mouth every 8 hours as needed 100 tablet 03/01 predniSONE (DELTASONE) 5 MG tablet Take 2 tablets (10 mg total) by mouth daily. 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 500mg daily - [...] Encounters Date Type Department Care Team Description 03/13/2025 Telephone [facility] Liver Transplant at [address] [address] Mitzy Schneider MA Critical Lab Results 03/12/2025 Refill [facility] Liver Transplant at [address] [address] Lydia Sanchez MD Encounter for therapeutic drug monitoring; S/P liver transplant ([facility]); Hypomagnesemia; Kidney transplant recipient; Hypertension, unspecified type; Gastroesophageal reflux disease, unspecified whether esophagitis present 03/10/2025 Telephone [facility] Kidney Transplant at [address] [place] [address] Lizeth Walden, ЮЛИЯ 03/10/2025 Telephone [facility] Liver Transplant at [address] [place] [address] Maureen Pantoja, RN Results 03/10/2025 Chart Note [facility] Liver Transplant at [address] [place] [phone] Marlene Ro MA 03/10 Labs entered from [facility] Lab 03/10/2025 Telephone [facility] Liver Transplant at [address] [facility] [address] [place] [address] Marlene Ro MA 03/10/2025 Telephone [facility] Liver Transplant at [address] [facility] [address] [place] [address] Marisela Martinez MA Critical Lab Results 03/06/2025 Telephone [facility] Liver Transplant at [address] [facility] [address] [place] [address] Maureen Pantoja, RN Results 03/04/2025 Chart Note [facility] Liver Transplant at [address] [place] [phone] Marlene Ro MA 03/04 Labs entered from [facility] 03/02/2025 Refill [facility] [address] [place] [phone] Feliciano Gomez, FIRE PREVENTION FORESTER 03/02/2025 Telephone [facility] Liver Transplant at [address] [place] [phone] Marlene Ro MA 02/26/2025 Telephone [facility] Liver Transplant at [address] [place] [address] Maureen Pantoja, ЮЛИЯ Results; Medication Dose Change 02/26/2025 Chart Note [facility] Liver Transplant at [address] [place] [phone] Marlene Ro MA 02/24 Labs entered from [facility] 02/25/2025 10:50 AM EDT Office Visit [facility] Kidney Transplant at [address] [facility] [address] [place] [phone] Bruno Gonzalez MD Kidney transplant recipient (Primary Dx); Neck pain with history of cervical spinal surgery; S/P liver transplant ([facility]) 02/25/2025 Refill [facility] Liver Transplant at [address] [place] [address] [place] [phone] Lydia Sanchez MD Encounter for therapeutic drug monitoring; S/P liver transplant ([facility]); Hypomagnesemia; Kidney transplant recipient; Hypertension, unspecified type; Gastroesophageal reflux disease, unspecified whether esophagitis present 02/23/2025 Chart Note [facility] Liver Transplant at [address] [place] [address] [place] [phone] Marlene Ro MA 02/18 Labs entered from [facility] 02/23/2025 Telephone [facility] Liver Transplant at [address] [place] [address] [place] [phone] Marlene Ro MA 02/17/2025 Telephone [facility] Liver Transplant at [address] [place] [address] [place] [phone] Marlene Ro MA 02/13/2025 Telephone [facility] Liver Transplant at [address] [place] [address] [place] [phone] Marisela Martinez MA Results 02/12/2025 10:50 AM EDT Office Visit [facility] Liver Transplant at [address] [place] [address] [place] [phone] Chris Orosco MD Liver transplant recipient ([facility]) (Primary Dx); History of systemic steroid therapy; Kidney transplant recipient; Immunosuppressive management encounter following liver transplant ([facility]); Encounter for monitoring tacrolimus therapy; Vitamin D deficiency; Encounter for therapeutic drug monitoring; S/P liver transplant ([facility]); Hypomagnesemia; Hypertension, unspecified type; Gastroesophageal reflux disease, unspecified whether esophagitis present; Alcohol use disorder; Immunosuppression (CMS-HCC); Viral disease exposure 02/12/2025 Social Work [facility] Liver Transplant at [address] [place] [phone] Kaylin Willard MSW 02/12/2025 Telephone [facility] Liver Transplant at [address] [place] [address] Maureen Pantoja, ЮЛИЯ Results 02/10/2025 Chart Note [facility] Liver Transplant at [address] [address] Marlene Ro MA 02/10 Labs entered from [facility] 02/09/2025 Chart Note [facility] Liver Transplant at [address] [place] [address] Marisela Martinez MA 02/09/2025 Telephone [facility] Liver Transplant at [address] [place] [address] Marisela Martinez MA 02/08/2025 Refill [facility] Liver Transplant at [address] [place] [phone] Harvey Domínguez III, MD 02/04/2025 Telephone [facility] Liver Transplant at [address] [place] [phone] Marlene Ro MA 02/03/2025 Telephone [facility] Liver Transplant at [address] [place] [phone] Mitzy Schneider MA Results 02/03/2025 Telephone [facility] Liver Transplant at [address] [place] [address] Marlene Ro MA 02/03/2025 Chart Note [facility] Liver Transplant at [address] [address] Marlene Ro MA 02/03 Labs entered from [facility] 01/27/2025 6:28 PM EDT - 01/30/2025 2:25 PM EDT Hospital Encounter [address] [place] [address] Sunny Wei MD Haugen, Christine, MD Diarrhea of presumed infectious origin (Primary Dx); Immunosuppression ([facility]) Discharge Disposition: Home or Self Care WITHOUT Home Care Services 01/27/2025 Travel 01/27/2025 Telephone [facility] Liver Transplant at [address] [address] Marlene Ro MA 01/26/2025 Telephone [facility] Liver Transplant at [address] [address] Maureen Pantoja, religious activities director Management 01/23/2025 Telephone [facility] Liver Transplant at [address] [address] Maureen Pantoja, RN Results 01/21/2025 Refill [facility] Liver Transplant at [address] [address] Rose Montelongo MD 01/21/2025 Refill [facility] Liver Transplant at [address] [address] Lydia Sanchez MD Encounter for therapeutic drug monitoring; S/P liver transplant ([facility]); Hypomagnesemia; Kidney transplant recipient; Hypertension, unspecified type; Gastroesophageal reflux disease, unspecified whether esophagitis present 01/21/2025 Refill [facility] Liver Transplant at [address] [place] [phone] Harvey Domínguez III, MD Encounter for therapeutic drug monitoring; S/P liver transplant ([facility]); Hypomagnesemia; Kidney transplant recipient; Hypertension, unspecified type; Gastroesophageal reflux disease, unspecified whether esophagitis present 01/20/2025 Chart Note [facility] Liver Transplant at [address] [place] [phone] Marlene Ro MA 01/20 Labs entered from [facility] 01/19/2025 Telephone [facility] Liver Transplant at [address] [place] [address] Gladis Chisholm MA Critical Lab Results 01/17/2025 Refill [facility] Liver Transplant at [address] [place] [address] Harvey Domínguez III, MD Encounter for therapeutic drug monitoring; S/P liver transplant ([facility]); Hypomagnesemia; Kidney transplant recipient; Hypertension, unspecified type; Gastroesophageal reflux disease, unspecified whether esophagitis present 01/16/2025 Telephone [facility] Liver Transplant at [address] [place] [address] Maureen Pantoja, RN Results 01/15/2025 Chart Note [facility] Liver Transplant at [address] [place] [phone] Marlene Ro MA 01/14 Labs entered from [facility] 01/15/2025 Telephone [facility] Liver Transplant at [address] [place] [phone] Marlene Ro MA 01/15/2025 Telephone [facility] Liver Transplant at [place] [address] [phone] Kaylin Willard MSW 01/14/2025 Telephone [facility] Liver Transplant at [address] [phone] Marlene Ro MA 01/09/2025 Chart Note [facility] Liver Transplant at [address] [phone] Marlene Ro MA 01/09 Labs entered from [facility] 01/09/2025 Telephone [facility] Liver Transplant at [address] [phone] Marisela Martinez MA Results 01/08/2025 Telephone [facility] Liver Transplant at [address] [phone] Maureen Pantoja, RN Results 01/06/2025 9:30 AM EDT Office Visit [facility] Liver Transplant at [address] [phone] Leisa Juarez MD Kidney transplant recipient (Primary Dx); Hypomagnesemia; Hyperphosphatemia; Immunosuppression ([facility]); Viral disease exposure; Hypertension, unspecified type 01/06/2025 8:20 AM EDT Office Visit [facility] Liver Transplant at [address] [place] [phone] Cosmo Pacheco MD Paci, Philippe, MD S/P liver transplant (CMS-HCC) (Primary Dx); Immunosuppression ([facility]); Kidney transplant recipient; Alcohol use disorder 01/06/2025 Social Work [facility] Liver Transplant at [address] [phone] Kaylin Willard MSW 01/05/2025 Chart Note [facility] Liver Transplant at [address] [address] Marlene Ro MA 01/05 Labs entered from [facility] 01/05/2025 Telephone [facility] Liver Transplant at [address] [address] Marisela Martinez MA Critical Lab Results 01/05/2025 Telephone [facility] Liver Transplant at [address] [address] Maureen Pnatoja, ЮЛИЯ Results 12/31/2024 Chart Note [facility] Liver Transplant at [address] [address] Marlene Ro MA 12/31 Labs entered from [facility] 12/29/2024 Telephone [facility] Liver Transplant at [address] [place] [address] Maureen Pantoja, RN Results 12/23/2024 Chart Note [facility] Liver Transplant at [address] [address] Maureen Pantoja, concession cashier results from 12/23/24 entered from [facility]. 12/22/2024 Telephone [facility] Liver Transplant at [address] [place] [address] Maureen Pantoja, RN Results; Medication Dose Change 12/21/2024 Refill [facility] Liver Transplant at [address] [place] [address] Lydia Sanchez MD Encounter for therapeutic drug monitoring; S/P liver transplant (CMS-HCC); Hypomagnesemia; Kidney transplant recipient; Hypertension, unspecified type; Gastroesophageal reflux disease, unspecified whether esophagitis present 12/18/2024 2:00 PM EDT Office Visit [facility] Psychiatry Transplant at [address] [place] [address] Lizeth Warren PsyD Alcohol use disorder (Primary Dx); PTSD (post-traumatic stress disorder) 12/18/2024 Refill [facility] Liver Transplant at [address] [place] [address] Maureen Pantoja, ЮЛИЯ Encounter for therapeutic drug monitoring; S/P liver transplant ([facility]); Hypomagnesemia; Kidney transplant recipient; Hypertension, unspecified type; Gastroesophageal reflux disease, unspecified whether esophagitis present 12/17/2024 Chart Note [facility] Liver Transplant at [address] [address] Marlene Ro MA 12/16 Labs entered [facility] 12/12/2024 Telephone [facility] Liver Transplant at [address] [place] [address] Maureen Pantoja, RN Results from Last 3 Months Social History Tobacco [...] Recorded In the past 12 months has [place] [facility], [employer], [place], or water [employer] threatened to shut off services in your [...] Immunization: Zoster (1 of 2) 2002 Immunization: HPV (1 - Risk 3-dose SCDM series) 2010 Immunization: Hepatitis B (2 of 3 - 19+ 3-dose series) 10/11/2010 09/13/2010 Immunization: COVID-19 ( season) 2025 03/17/2021, 07/25/2020, 06/27/2020 Immunization: Influenza (MyC adler) (#1) 2025 03/12/2024, 03/12/2023 Thyroid Function/TSH (MyChart) 10/07/2025 0 10/07/2024, 10/06/2024, 09/03/2024 Depression Screening 12/10/2025 12/10/2024, 12/10/2024, 09/29/2024, Additional history exists Alcohol Misuse Screening 01/27/2026 025, 10/25/2024, 10/05/2024, Additional history exists Renal Function/GFR 03/10/2026 03/10/2025, 1 , 02/24/2025, Additional history exists Immunization: DTaP/Tdap/Td ( 3 - Td or Tdap) 06/03/2028 06/03/2018, 09/13/2010 Hepatitis C Screening (MyChart) Completed 10/25/2024, 10/07/2024, 10/06/2024, Additional history exists HIV Screening Completed 11/25/2024, 10/12, 10/07/2024 Procedures Procedure Name Priority Date/Time Associated Diagnosis Comments CYTOMEGALOVIRUS DNA, QUANT, RT PCR Routine 03/10/2025 9:29 AM EDT CREATININE, URINE, RANDOM Routine 2024 9:29 AM EDT URINALYSIS W/RFL TO MICROSCOPIC Routine 03/10/2025 9:29 AM EDT URINE PROTEIN, TOTAL, RANDOM (W/O CREATININE) Routine 03/10/2025 9:29 AM EDT MAGNESIUM Routine 03/10/2025 9:29 AM EDT HEPATIC FUNCTION PANEL Routine 9:29 AM EDT RENAL FUNCTION PANEL W/O EGFR Routine 03/10/2025 9:29 AM EDT CBC AND DIFFERENTIAL Routine 03/10/2025 9:29 AM EDT TACROLIMUS LEVEL Routine 03/04/2025 11:2 9 AM EDT MAGNESIUM Routine 03/04/2025 11:29 AM EDT RENAL [...] Routine 9:30 PM EDT UPPER RESPIRATORY VIRAL/BACTERIAL PANEL-CHECKER [employer] ONLY Routine 01/27/2025 9:30 PM EDT LACTIC [...] S Routine 01/27/2025 8:20 PM EDT FUNGITELL [id number] Routine 01/28/20 8:20 PM EDT KATIE SCHAFER [...] HEPATIC FUNCTION PANEL Routine 10:05 AM EDT HIV-1 RNA, QUANTITATIVE, PCR Routine 11/25/2024 8:42 AM EDT S/P liver transplant ([facility]) Immunosuppression ([facility]) Viral disease exposure HEPATITIS C ANTIBODY STAT 10/25/2024 10:17 PM EDT TSH Routine 10/07/2024 6:37 PM EDT from Last 3 Months or Most Recently Relevant to Health Maintenance Results * Urine Protein, Tot, Random (w/o Creat) (03/10/2025 9:29 AM EDT) Only the most recent of11 resultswithin the time period is included. Total Protein, Ur 21.0 Urine Narrative Resulting Agency Comment [facility] Lab Historical Provider URINE ORDERABLES Final Re sult * Cytomegalovirus DNA, Quant, RT PCR (03/10/2025 9:29 AM EDT) Only the most recent of4 resultswithin the time period is included. CMV Quant DNA PCR (Plasma) Negative Plasma Historical Provider LAB BLOOD ORDERABLES Denisse l Result * Hepatic Function Panel (03/10/2025 9:29 AM EDT) Only the most recent of17 resultswithin the time period is included. Bilirubin, Direct 0.2 Bilirubin, Indirect 0.5 Alkaline Phosphatase 102 ALT 28 AST 26 Total Bilirubin 0.7 Total Protein 6.7 Plasma Narrative Resulting Agency Comment [facility] Lab Result [facility] LAB BLOOD ORDERABLES Denisse l Result * Creatinine, urine, random (03/10/2025 9:29 AM EDT) Only the most recent of11 resultswithin the time period is included. Creatinine, Urine 94 Urine Narrative Resulting Agency Comment [facility] Lab Result [facility] URINE ORDERABLES Final Re sult * Urinalysis w/Rfl to Microscopic (03/10/2025 9:29 AM EDT) Only the most recent of11 resultswithin the time period is included. Glucose, UA Negative Negative Ketones, UA Negative Negative Blood, UA Negative Negative Bilirubin, UA Negative Negative Urobilinogen, UA Normal Normal Protein, UA Negative Negative Nitrite, UA Negative Negative pH, UA 5.5 4.5 - 8.0 Specific [place], UA 1.015 1.005 - 1.030 Clarity, UA Clear Clear Color, UA Yellow Light Yellow, Yellow Urine Narrative Resulting Agency Comment [facility] Lab [facility] URINE ORDERABLES Final Re sult * (ABNORMAL) CBC and differential (03/10/2025 9:29 AM EDT) Only the most recent of14 resultswithin the time period is included. Hemoglobin 13.5 13.5 - 17.5 g/dL Hematocrit [...] 5.6 10^3/mL Blood Narrative Resulting Agency Comment [facility] Lab Result [facility] MD LAB BLOOD ORDERABLES Denisse l Result * (ABNORMAL) Magnesium (03/10/2025 9:29 AM EDT) Only the most recent of16 resultswithin the time period is included. Magnesium 0.9(A) 1.6 - 2.4 mg/dL Plasma Narrative Resulting Agency Comment [facility] Lab Result [facility] LAB BLOOD ORDERABLES Denisse l Result * (ABNORMAL) Renal Function Panel w/o EGFR (03/10/2025 9:29 AM EDT) Only the most recent of13 resultswithin the time period is included. Glucose 111 BUN 13 CO2 28(A) 13 - 22 mmol/L Creatinine 1.30 Potassium 3.9 Sodium 138 Chloride 100 Phosphorus 5.0(A) 2.5 - 4.9 mg/dL Calcium 9.2 EGFR 61 mg/dL Albumin 4.5 3.5 - 5.0 g/dL Blood Narrative Resulting Agency Comment [facility] Result [facility] MD LAB BLOOD ORDERABLES Denisse l Result * Tacrolimus level (03/04/2025 11:29 AM EDT) Only the most recent of15 resultswithin the time period is included. Tacrolimus Lvl 14.6 6 - 15 ng/mL Whole Blood Result [facility] MD LAB BLOOD ORDERABLES Denisse l Result * Vitamin D 25 hydroxy (03/04/2025 11:29 AM EDT) Pathologist [facility] Vit D, 25-Hydroxy 38.4 Serum Narrative Resulting Agency Comment [facility] Result [facility] Provider MD LAB BLOOD ORDERABLES Denisse l Result * Urine culture (03/04/2025 11:29 AM EDT) Only the most recent of4 resultswithin the time period is included. [facility] Urine Culture, Comprehensive no growth after 48 hours URINE SPECIMEN / Unknown Result [facility] Provider MD MICROBIOLOGY - GENERAL OR DERABLES Final Result * Phatidylethanol (PEth) (02/18/2025 10:34 AM EDT) Only the most recent of4 resultswithin the time period is included. Pathologist [facility] Phosphatidylethanol (PEth) Positive 371 Whole Blood Result [facility] Provider LAB BLOOD ORDERABLES Denisse l Result * BK Virus Quantitative by PCR, Blood (02/10/2025 9:33 AM EDT) Only the most recent of4 resultswithin the time period is included. [facility] BK Virus Quant PCR PL Negative Plasma Result [facility] Provider LAB BLOOD ORDERABLES Denisse l Result * Clostridium difficile DNA Amplification (02/03/2025 11:04 AM EDT) Only the most recent of2 resultswithin the time period is included. [facility] Clost. Diff DNA Amp. Positive Norovirus Detected FECES / Unknown Result [facility] Provider BODY FLUIDS AND STOOLS OR DERABLES Edited Result - Final * (ABNORMAL) Differential (01/30/2025 7:41 AM EDT) Only the most recent of2 resultswithin the time period is included. Pathologist [facility] Neutrophils Relative 39.1(L) 40.0 - 80.0 % 01/30/2025 8:09 AM EDT [facility] Lymphocytes Relative 43.8 15.0 - 45.0 % 01/30/2025 8:09 AM EDT [facility] Monocytes Relative 14.2(H) 0.0 - 12.0 % 01/30/2025 8:09 AM EDT [facility] Eosinophils Relative 2.2 0.0 - 8.0 % 01/30/2025 8:09 AM EDT [facility] Basophils Relative 0.7 0.0 - 1.0 % 01/30/2025 8:09 AM EDT [facility] nRBC 0 0 - 0 /100 WBC 01/30/2025 8:09 AM EDT [facility] Neutrophils Absolute 782(L) 1,520 - 8,640 /uL 01/30/2025 8:09 AM EDT [facility] Lymphocytes Absolute 876 570 - 4,860 /uL 01/30/2025 8:09 AM EDT [facility] Monocytes Absolute 284 0 - 1,296 /uL 01/30/2025 8:09 AM EDT [facility] Eosinophils Absolute 44 0 - 864 /uL 01/30/2025 8:09 AM EDT [facility] Basophils Absolute 14 0 - 108 /uL 01/30/2025 8:09 AM EDT [facility] Whole Blood 01/30/2025 7:41 AM EDT 01/30/2025 8:01 AM EDT Feliciano Gomez [facility] BLOOD ORDERABLES Final Resu lt [facility] [address] [id number] * (ABNORMAL) Renal Function Panel w/EGFR (01/30/2025 5:51 AM EDT) Only the most recent of3 resultswithin the time period is included. Sodium 139 133 - 146 mmol/L 01/30/2025 7:06 AM EDT [facility] Potassium 3.5 3.5 - 5.3 mmol/L 01/30/2025 7:06 AM EDT [facility] Chloride 105 98 - 110 mmol/L 01/30/2025 7:06 AM EDT [facility] CO2 26 21 - 33 mmol/L 01/30/2025 7:06 AM EDT [facility] Anion Gap 8 3 - 16 mmol/L 01/30/2025 7:06 AM EDT [facility] BUN 29(H) 7 - 25 mg/dL 01/30/2025 7:06 AM EDT [facility] Creatinine 1.14 0.60 - 1.30 mg/dL 01/30/2025 7:06 AM EDT [facility] Glucose 114(H) 70 - 100 mg/dL 01/30/2025 7:06 AM EDT [facility] Calcium 8.7 8.6 - 10.3 mg/dL 01/30/2025 7:06 AM EDT [facility] Phosphorus 5.1(H) 2.1 - 4.7 mg/dL 01/30/2025 7:06 AM EDT [facility] Albumin 4.1 3.5 - 5.7 g/dL 01/30/2025 7:06 AM EDT [facility] Osmolality, Calculated 295 278 - 305 mOsm/kg 01/30/2025 7:06 AM EDT [facility] EGFR 83 01/30/2025 7:06 AM EDT [facility] Comment:As of 2021, the [...] Hill MD LAB BLOOD ORDERABLES Final Result [facility] [address] [facility] [place] [address], [facility] * (ABNORMAL) CBC (01/30/2025 5:51 AM EDT) Only the most recent of4 resultswithin the time period is included. WBC 2.1(L) 3.8 - 10.8 10E3/uL 01/30/2025 6:41 AM EDT HEALTH LAB RBC 3.41(L) 4.20 - 5.80 10E6/uL 01/30/2025 6:41 AM EDT [facility] Hemoglobin 11.2(L) 13.2 - 17.1 g/dL 01/30/2025 6:41 AM EDT [facility] Hematocrit 31.9(L) 38.5 - 50.0 % 01/30/2025 6:41 AM EDT [facility] MCV 93.7 80.0 - 100.0 fL 01/30/2025 6:41 AM EDT [facility] MCH 32.9 27.0 - 33.0 pg 01/30/2025 6:41 AM EDT [facility] MCHC 35.1 32.0 - 36.0 g/dL 01/30/2025 6:41 AM EDT [facility] RDW 14.8 11.0 - 15.0 % 01/30/2025 6:41 AM EDT [facility] Platelets 95(L) 140 - 400 10E3/uL 01/30/2025 6:41 AM EDT [facility] MPV 6.4(L) 7.5 - 11.5 fL 01/30/2025 6:41 AM EDT [facility] Whole Blood 01/30/2025 5:51 AM EDT 01/30/2025 6:33 AM EDT Carlton Hill MD LAB BLOOD ORDERABLES Final Result [facility] [address], [place] [address], [facility] * CT Neck With IV [...] cavity, parapharyngeal space, and retropharyngeal space. Normal traffic chief space, infratemporal fossa, and buccal space. Infrahyoid [...] CT images of the neck were obtained [id number] mL of IOHEXOL 350 MG IODINE/ML INTRAVENOUS SOLUTION administeredintravenously . Sagittal and coronal 2D multiplanar reconstructions wereperformed at the scanner. COMPARISON: None available FINDINGS: Adequate diagnostic quality. Nasopharynx: Symmetric with no mass. Normal torus tubarius, fossa ofRosenmuller, and adenoid tonsillar tissue. Suprahyoid neck: Normal oropharynx, oral cavity, parapharyngeal space, andretropharyngeal space. Normal traffic chief space, infratemporal fossa, andbuccal space. Infrahyoid neck: [...] - 15 mm/hr 01/29/2025 7:03 AM EDT [facility] Whole Blood 01/29/2025 5:55 AM EDT 01/29/2025 6:41 AM EDT us Feliciano Gomez CNP LAB BLOOD ORDERABLES Final Resu lt [facility] [address] [place] [address], [facility] * C-Reactive Protein (01/29/2025 5:55 AM EDT) Pathologist [facility] CRP 4.1 1.0 - 10.0 mg/L 01/29/2025 7:13 AM EDT [facility] Plasma 01/29/2025 5:55 AM EDT 01/29/2025 6:41 AM EDT Feliciano Gomez [facility] BLOOD ORDERABLES Final Resu lt [facility] [address] * Giardia Cryptosporidium Antigens (Feces) (01/28/2025 9:27 PM EDT) [facility] Cryptosporidium Ag Negative Negative 2024 8:03 AM EDT [facility] Giardia Ag Negative Negative 01/29/2025 8:03 AM EDT [facility] Comment: Detection of Giardia and Cryptosporidium antigen is more sensitive and specific than microscopy. Because antigens are shed continuously, repeat testing is rarely warranted. Feces 01/28/2025 9:27 PM EDT 01/28/2025 10:07 PM EDT Comment:F Ruby Chiang MD MICROBIOLOGY - GENERAL ORDERAB LES Final Result Performing Organization Address City/[facility]/ZIP Co de Phone Number [facility] [address] [facility] * Ova and Parasite Comprehensive w/Giardia (Feces) (01/28/2025 9:27 PM EDT) Pathologist [facility] O & P Method: Concentration and Trichrome Stain [facility] Results No Amoeba, Ova, Or Parasites Seen. -- O and P examination of additional specimens is recommended only for symptomatic patients, immunosuppressed patients or those with an appropriate travel history. [facility] Feces FECES / Unknown 01/28/2025 9 :27 PM EDT 01/28/2025 10:07 PM EDT Comment:F Ruby Chiang MD MICROBIOLOGY - GENERAL ORDERAB LES Final Result Performing Organization Address City/[facility]/ZIP Co de Phone Number [facility] [address] * Clostridium Difficile Toxin A/B Antigen (01/28/2025 1:21 PM EDT) CDIFF Tox AGN Negative Negative 01/28/2025 10:35 PM EDT [facility] Comment:C. difficile nucleic acid [...] ES Final Result Performing Organization Address [facility] Co de Phone Number [facility] [address] * Phosphatidylethanol Confirmation, B (01/28/2025 7:14 AM EDT) Only the most recent of2 resultswithin the time period is included. PETH 16:0/18.1 (POPETH) 394 Cutoff: 10 ng/mL 01/30/2025 9:58 AM EDT [facility] Comment: Phosphatidylethanol (PEth) homologues [...] Cutoff: 10 ng/mL 01/30/2025 9:58 AM EDT [facility] Comment: PEth 16:0/18:2 (PLPEth) Reference ranges are not well established PEth Interpretation Positive. 01/30 9:58 AM EDT [facility] Comment: ADDITIONAL INFORMATION This report is intended for use in clinical monitoring and management of patients. It is not intended for use in employment-related testing. This test was developed and its performance characteristics determined by [facility] in a manner consistent with CLIA requirements. This test has not been cleared or approved by the U.S. Food and Drug Administration. Test Performed by: [facility] [place] [address] Network Administrator: Kathy Ortiz Ph.D.; CLIA# [id number] Whole Blood 01/28/2025 7:14 AM EDT 01/30/2025 9:58 AM EDT us Carlton Hill MD LAB BLOOD ORDERABLES Final Result [facility] [address] [place] [id number], [facility] * CT Head WO contrast [...] 01/28/2025 1:39 AM EDT Shelby Blanco MD [facility] ORDERABLES Final Result * Enteric Pathogen Panel (01/27/2025 9:30 PM EDT) Campylobacter Group (C. ecoli, C. jejuni, C. trino) Not Detected Not Detected 01/28/2025 3:11 AM EDT [facility] Salmonella species Not Detected Not Detected 01/28/2025 3:11 AM EDT [facility] Shigella species Not Detected Not Detected 01/28/2025 3:11 AM EDT [facility] Vibrio Group (Vibrio cholerae, Vibrio parahaemolyticus) Not Detected Not Detected 01/28/2025 3:11 AM EDT [facility] Yersinia enterocolitica Not Detected Not Detected 01/28/2025 3:11 AM EDT [facility] Shiga toxin 1 Not Detected Not Detected 01/28/2025 3:11 AM EDT [facility] Shiga toxin 2 Not Detected Not Detected 01/28/2025 3:11 AM EDT [facility] Norovirus Not Detected Not Detected 01/28/2025 3:11 AM EDT [facility] Rotavirus Not Detected Not Detected 01/28/2025 3:11 AM EDT [facility] Comment: The Enteric Pathogen [...] FLUIDS AND STOOLS ORDERABLE S Final Result [facility] [address] * Respiratory viral panel (01/27/2025 9:30 PM EDT) Pathologist [facility] Adenovirus Not Detected Not Detected 01/28/2025 12:20 AM EDT [facility] Coronavirus (229E,HKU1,NL63,OC 43) Not Detected Not Detected 01/28/2025 12:20 AM EDT [facility] SARS-CoV-2 Not Detected Not Detected 01/28/2025 12:20 AM EDT [facility] Human Metapneumovirus Not Detected Not Detected 01/28/2025 12:20 AM EDT [facility] Human Rhinovirus/Enterov irus Not Detected Not Detected 01/28/2025 12:20 AM EDT [facility] Influenza A Not Detected Not Detected 01/28/2025 12:20 AM EDT [facility] Influenza A H1 Not Detected Not Detected 01/28/2025 12:20 AM EDT [facility] Influenza A/H1-2009 Not Detected Not Detected 01/28/2025 12:20 AM EDT [facility] Influenza A H3 Not Detected Not Detected 01/28/2025 12:20 AM EDT [facility] Influenza B Not Detected Not Detected 01/28/2025 12:20 AM EDT [facility] Parainfluenza 1 Not Detected Not Detected 01/28/2025 12:20 AM EDT [facility] Parainfluenza 2 Not Detected Not Detected 01/28/2025 12:20 AM EDT [facility] Parainfluenza 3 Not Detected Not Detected 01/28/2025 12:20 AM EDT [facility] Parainfluenza 4 Not Detected Not Detected 01/28/2025 12:20 AM EDT [facility] Resp. Syncycial Virus A Not Detected Not Detected 01/28/2025 12:20 AM EDT [facility] Resp. Syncycial Virus B Not Detected Not Detected 01/28/2025 12:20 AM EDT [facility] Chlamydia pneumoniae Not Detected Not Detected 01/28/2025 12:20 AM EDT [facility] Mycoplasma pneumoniae Not Detected Not Detected 01/28/2025 12:20 AM EDT [facility] Comment: The Respiratory Viral-Bacterial [...] Test results have been sent to the [facility] in accordance with state requirements. For a fact sheet for healthcare providers, see https://www.fda.gov/media/753786/download. For a fact sheet for patients, see https://www.fda.gov/media/864702/download. Nasopharyngeal Swab NASOPHARYNGEAL STRUCTURE / Unknown 01/27/2025 9:30 PM EDT 01/27/2025 10:20 PM EDT us Shelby Blanco MD BODY FLUIDS AND STOOLS ORDERABLE S Final Result Performing Organization Address City/[facility]/ZIP Co de Phone Number [facility] [address] [facility] * Lactic acid, venous, whole blood (01/27/2025 9:30 PM EDT) Pathologist [facility] Lactate, Shakeel 1.4 0.5 - 1.6 mmol/L 01/27/2025 9:42 PM EDT [facility] Blood, Venous 01/27/2025 9:3 0 PM EDT 01/27/2025 9:39 PM EDT us Pamela JACOME LAB BLOOD ORDERABLES Final Res ult Performing Organization Address City/[facility]/ZIP Co de Phone Number [facility] [address] [facility] * Histoplasma/Blastomyces Ag, EIA, U (01/27/2025 8:44 PM EDT) Pathologist [facility] Histoplasma/Blasto myces Ag Result (Urine) Not Detected Not Detected 01/31/2025 11:06 AM EDT [facility] Comment: No antigen from Histoplasma or Blastomyces detected. False negative results may occur depending on extent of disease, and/or site of infection. Repeat testing on a new specimen if clinically indicated. Histoplasma/Blasto myces Ag Value (Urine) Not Detected ng/mL 01/31/2025 11:06 AM EDT [facility] Comment: ADDITIONAL INFORMATION This test was developed and its performance characteristics determined by [facility] in a manner consistent with CLIA requirements. This test has not been cleared or approved by the U.S. Food and Drug Administration. Test Performed by: [facility] [address] [place] [id number] Network Administrator: Kathy Ortiz Ph.D.; CLIA# [id number] Urine URINE SPECIMEN / Unknown 01/27/2025 8:44 PM EDT 01/31/2025 11:06 AM EDT Shelby Blanco MD URINE ORDERABLES Final Result Performing Organization Address City/[facility]/ZIP Co de Phone Number [facility] [address] * Strep Pneumo-Legionella Urine Antigen (01/27/2025 8:44 PM EDT) Pathologist [facility] Strept Pneumo Ag Negative Negative 01/27/2025 11:12 PM EDT [facility] Legionella Antigen Negative Negative 01/27/2025 11:12 PM EDT [facility] Urine URINE SPECIMEN / Unknown 01/27/2025 8:44 PM EDT 01/27/2025 10:21 PM EDT Narrative [facility] - 01/27/2025 11:12 PM [...] [facility]/ZIP Co de Phone Number [facility] [address] [facility] * (ABNORMAL) Urinalysis, Microscopic (01/27/2025 8:44 PM EDT) RBC, UA <1 0 - 3 /HPF 01/27/2025 9:32 PM EDT [facility] WBC, UA 1 0 - 5 /HPF 01/27/2025 9:32 PM EDT [facility] Hyaline Casts, UA 75(H) 0 - 2 /LPF 01/27/2025 9:32 PM EDT [facility] Mucus, UA Present(A) None Seen /HPF 01/27/2025 9:32 PM EDT [facility] Urine 01/27/2025 8:44 PM EDT 01/27/2025 9:01 PM EDT us Pamela JACOME URINE ORDERABLES Final Result [facility] [address] [place] [address], [facility] * (ABNORMAL) Urinalysis-Macroscopic w/Rfx to Microsco (01/27/2025 8:44 PM EDT) Color, UA Yellow Yellow,Straw 01/27/2025 9:32 PM EDT [facility] Clarity, UA Clear Clear 01/27/2025 9:32 PM EDT [facility] Specific [place], UA 1.015 1.005 - 1.035 01/27/2025 9:32 PM EDT [facility] pH, UA 5.5 5.0 - 8.0 01/27/2025 9:32 PM EDT [facility] Protein, UA 30(A) Negative mg/dL 01/27/2025 9:32 PM EDT [facility] Glucose, UA Negative Negative mg/dL 01/27/2025 9:32 PM EDT [facility] Ketones, UA 20(A) Negative mg/dL 01/27/2025 9:32 PM EDT [facility] Bilirubin, UA Negative Negative 01/27/2025 9:32 PM EDT [facility] Blood, UA Negative Negative 01/27/2025 9:32 PM EDT [facility] Nitrite, UA Negative Negative 01/27/2025 9:32 PM EDT [facility] Urobilinogen, UA <2.0 0.2 - 1.9 mg/dL 01/27/2025 9:32 PM EDT [facility] Leukocyte Esterase, UA Negative Negative 01/27/2025 9:32 PM EDT [facility] Urine 01/27/2025 8:44 PM EDT 01/27/2025 8:53 PM EDT Pamela JACOME URINE ORDERABLES Final Result Performing Organization Address [facility] de Phone Number [facility] [address] [facility] * Histoplasma/Blastomyces Ag, EIA, S (01/27/2025 8:20 PM EDT) Histoplasma/Blasto myces Ag Result (Serum) Not Detected Not Detected 01/30/2025 12:49 PM EDT [facility] Comment: No antigen from Histoplasma or Blastomyces detected. False negative results may occur depending on extent of disease, and/or site of infection. Repeat testing on a new specimen if clinically indicated. Histoplasma/Blasto myces Ag Value (Serum) Not Detected ng/mL 01/30/2025 12:49 PM EDT [facility] Comment: ADDITIONAL INFORMATION This test was developed and its performance characteristics determined by [facility] in a manner consistent with CLIA requirements. This test has not been cleared or approved by the U.S. Food and Drug Administration. Test Performed by: [facility] - [address] [address] Network Administrator: Kathy Ortiz Ph.D.; CLIA# [id number] Serum SERUM SPECIMEN / Unknown 01/27/2025 8:20 PM EDT 01/30/2025 12:49 PM EDT Comment:S us Shelby Blanco MD LAB BLOOD ORDERABLES Final Resul t Performing Organization Address City/[facility]/ZIP Co de Phone Number [facility] [address] [place], [place] [address] * Fungitell (01/27/2025 8:20 PM EDT) Fungitell Value <31.25 pg/mL 4:19 PM EDT [facility] Reference Value Comment 4:19 PM EDT [facility] Comment:Negative: <60, Posit bradley: >/=60 Clinical Relevance Notes 2024 4:19 PM EDT [facility] Comment: The Fungitell test [...] Cryptococcus, which produce very low levels of (1,3)-yemq-Z-ixjyyv. This test will not detect the zygomycetes, such as Absidia, Blastomyces, Mucor, and Rhizopus, which are not known to produce (1,3)-dcdc-W-fpoztp. In addition, the yeast phase of Blastomyces dermatitidis produces little (1,3)-bjid-E-mwuvvi and may not be detected by the assay. Disclaimer: Notes 02/02/2025 4:19 PM EDT [facility] Comment: This test has been cleared or approved for diagnostic use by the U.S. Food and Drug Administration. Performance characteristics were verified by [employer]. Electronically signed by: Comment 02/02/2025 4:19 PM EDT [facility] Comment:Usha Landin Fungitell Result Comment 02/03/20 4:19 PM EDT [facility] Comment:Negative Interpretation Notes 02/02/2025 4:19 PM EDT [facility] Comment: (1,3) Wuth-O-Ivuikz was NOT DETECTED in the sample. Reasons for negative results could include the patient being in the early stage of infection before detectable levels of (1,3) Ylcu-V-Hcgdui are present. Clinical diagnosis should be made in the context of the patient's complete medical history. Serum 01/27/2025 8:20 PM EDT 02/02/2025 5:07 PM EDT Narrative [facility] - 02/02/2025 5:07 PM EDT PERFORMED AT: [employer] [address] [facility] [address] [place], [place] [id number] HORTICULTURAL THERAPIST: Cyril Porter, PhD PHONE: [phone] Shelby Blanco MD LAB BLOOD ORDERABLES Final Resul t Performing Organization Address City/[facility] Co de Phone Number [facility] [address] * Cryptococcus Ag (01/27/2025 8:20 PM EDT) Pathologist [facility] Crypto Ag, Ser Negative Negative 01/27/2025 11:41 PM EDT [facility] Crypto Ag Titer, Ser Not Applicable 01/27/2025 11:41 PM EDT [facility] Serum SERUM SPECIMEN / Unknown 01/27/2025 8:20 PM EDT 01/27/2025 10:04 PM EDT Comment:S Shelby Blanco MD LAB BLOOD ORDERABLES Final Resul t Performing Organization Address [facility] de Phone Number [facility] [address] [place] [address]. [address] * BK PCR, Blood (Renal Txp and BMT only) (01/27/2025 8:20 PM EDT) Pathologist [facility] BKV IU DNA Quant, Blood Not Detected IU/mL 01/29/2025 1:48 PM EDT [facility] Comment: Beginning August 23, 2021, [facility] has transitioned BK viral load [...] log 10 IU/mL 01/29/2025 1:48 PM EDT [facility] [facility] Comment:BKV DNA Not Detected Plasma 01/27/2025 8:20 PM EDT 01/27/2025 9:49 PM EDT Shelby Blanco MD LAB BLOOD ORDERABLES Final Resul t Performing Organization Address City/[facility] Co de Phone Number [facility] [address] * Katie-Schafer Virus (EBV) PCR (01/27/2025 8:20 PM EDT) EBV DNA, Quantitative PCR Not Detected IU/mL 01/28/2025 10:54 AM EDT [facility] EBV DNA, Log10 See Note log 10 IU/mL 01/28/2025 10:54 AM EDT [facility] Comment: Beginning September 05, 2022, [facility] has transitioned EBV viral load [...] MD LAB BLOOD ORDERABLES Final Resul t [facility] [address] [facility], [place]. [address] * Adenovirus PCR (01/27/2025 8:20 PM EDT) Adenovirus, Quantitative PCR 0 0 - 0 copies/mL 02/03/2025 1:12 PM EDT [facility] Comment: Testing performed by [facility], [address] [place] [address], [place], [place]. This test(s) was developed and its performance characteristics determined and validated by the Department of Pathology and Laboratory Medicine at [facility]. It has not been cleared or [...] ORDERABLES Final Resul t Performing Organization Address [facility] de Phone Number [facility] [address] [place] [address]. [address] * Aspergillus Ag (01/27/2025 8:20 PM EDT) Pathologist [facility] Aspergillus Ag. 0.03 0.00 - 0.49 Index 01/30/2025 5:54 PM EDT [facility] Serum SERUM SPECIMEN / Unknown 01/27/2025 8:20 PM EDT 01/31/2025 4:23 AM EDT Comment:S Shelby Blanco MD BODY FLUIDS AND STOOLS ORDERABLE S Final Result Performing Organization Address [facility] Co de Phone Number [facility] [address] [facility]. [address] * Blood culture-Peripheral (Blood) (01/27/2025 8:20 PM EDT) Only the most recent of2 resultswithin the time period is included. Culture Result No Growth After 5 Days [facility] Blood BLOOD SPECIMEN / Unknown 01/27/2025 8:20 PM EDT 01/27/2025 9:57 PM EDT us Pamela JACOME MICROBIOLOGY - GENERAL ORDERAB LES Final Result [facility] [address] [facility]. [address] * Blood Culture, Acid Fast (Blood) (01/27/2025 8:20 PM EDT) Culture Result Culture Negative For Mycobacteria At 6 Weeks [facility] Blood SERUM SPECIMEN / Unknown 01/27/2025 8:20 PM EDT 01/27/2025 9:50 PM EDT Comment:S us Shelby Blanco MD MICROBIOLOGY - GENERAL ORDERABLE S Final Result Performing Organization Address City/[facility]/ZIP Co de Phone Number [facility] [address] * Fungus culture, blood (Blood) (01/27/2025 8:20 PM EDT) Culture Result No Fungus Isolated At 4 Weeks [facility] Blood SERUM SPECIMEN / Unknown 01/27/2025 8:20 PM EDT 01/27/2025 9:50 PM EDT Comment:S Shelby Blanco MD MICROBIOLOGY - GENERAL ORDERABLE S Final Result Performing Organization Address City/[facility]/ZIP Co de Phone Number [facility] [address] [facility]. [address] * (ABNORMAL) Lipase (01/27/2025 8:20 PM EDT) Lipase 3(L) 4 - 82 U/L 01/27/2025 9:0 3 PM EDT [facility] Plasma 01/27/2025 8:20 PM EDT 01/27/2025 8:34 PM EDT Pamela Pattersonzina JACOME LAB BLOOD ORDERABLES Final Res ult Performing Organization Address [facility] Co de Phone Number [facility] [address] [facility]. [address] * Hemoglobin A1c (01/27/2025 8:20 PM [...] PM EDT 01/27/2025 8:57 PM EDT Narrative [facility] - 01/27/2025 11:49 PM EDT A1C project?->Yes Pamela JACOME LAB BLOOD ORDERABLES Final Res ult Performing Organization Address [facility] Co de Phone Number [facility] [address] [facility], [place]. [address] * Basic metabolic panel (01/27/2025 8:20 PM EDT) Sodium 136 133 - 146 mmol/L 01/27/2025 9:03 PM EDT [facility] Potassium 4.0 3.5 - 5.3 mmol/L 01/27/2025 9:03 PM EDT [facility] Chloride 100 98 - 110 mmol/L 01/27/2025 9:03 PM EDT [facility] CO2 25 21 - 33 mmol/L 01/27/2025 9:03 PM EDT [facility] Anion Gap 11 3 - 16 mmol/L 01/27/2025 9:03 PM EDT [facility] BUN 16 7 - 25 mg/dL 01/27/2025 9:03 PM EDT [facility] Creatinine 1.02 0.60 - 1.30 mg/dL 01/27/2025 9:03 PM EDT [facility] Glucose 93 70 - 100 mg/dL 01/27/2025 9:03 PM EDT [facility] Calcium 9.7 8.6 - 10.3 mg/dL 01/27/2025 9:03 PM EDT [facility] Osmolality, Calculated 283 278 - 305 mOsm/kg 01/27/2025 9:03 PM EDT [facility] EGFR >90 01/27/2025 9:03 PM EDT [facility] Comment: As of 2021, [...] JACOME LAB BLOOD ORDERABLES Final Res ult [facility] [address] [place], [place] [address] * X-ray Chest PA and Lateral [...] of2 resultswithin the time period is included. INR 0.94 0.9 - 1.1 Protime 10.5 Plasma Harvey Domínguez III, MD LAB BLOOD ORDERABLE S Final Result * HIV-1 RNA, Quantitative, PCR (11/25/2024 8:42 AM EDT) HIV 1 Copies Not Detected copies/mL 11/26/2024 10:57 AM EDT [facility] Comment:Test methodology for HIV-1 RNA quantification is an FDA-approved nucleic acid amplification assay. The Lower Limit of Quantitation (LLoQ) is 20 copies/mL. The linear range is 20- to 10,000,000 copies/mL. The Limit of Detection (LoD) is 13.2 copies/mL. The reference range is Not Detected. HIV [id number] See Note [id number] /mL 11/26/2024 10:57 AM EDT [facility] Comment:HIV-1 RNA not detect ed. Plasma 11/25/2024 8:42 AM EDT 11/25/2024 10:59 AM EDT Narrative [facility] - 11/26/2024 10:57 AM EDT One time lab order to be collected with next set of standing liver transplant labs. UNOS requirement. Please fax all results to [phone]. Call critical results to [phone]. Harvey Domínguez III, MD LAB BLOOD ORDERABLE S Final Result [facility] [address] * Hepatitis C Antibody (10/25/2024 10:17 PM EDT) HCV Ab Nonreactive Nonreactive 10/25/2024 11:16 PM EDT [facility] Comment:Health Department no tified in accordance with reportable infectious disease guidelines. Serum 10/25/2024 10:1 7 PM EDT 10/25/2024 10:17 PM EDT [facility] - 10/25/2024 11:16 PM EDT Antibodies to HCV not detected; does not exclude the possibility of exposure to HCV. us Aysha Gill MD LAB BLOOD ORDERABLES F inal Result [facility] [address] * TSH (Thyroid Stimulating Hormone) (10/07/2024 6:37 PM EDT) TSH 0.81 0.45 - 4.12 uIU/mL 10/07/2024 8:17 PM EDT [facility] Serum 10/07/2024 6:37 PM EDT 10/07/2024 6:50 PM EDT us Gerri Peterson MD LAB BLOOD ORDERABLES Final Resu lt [facility] [address] from Last 3 Months or Most Recently Relevant to Health Maintenance Additional Health Concerns Infection Onset Date Last Indicated C. difficile 01/28/2025 01/28/2025 Insurance [facility] [id number] CARE [facility] [employer] Member Subscriber Plan / Payer ( fective 2024-2025) Name:Julien Anderson Relation to Subscriber:Self Name:Julien Anderson Payer ID:[id number] Group ID:Not on file Type:Transplant Address: [address] [place] [address] Advance Directives For more information, please contact: [phone] * Full Code (Latest Code Status on [...] 9:42 AM 09/09/2024 10:30 PM Care Teams Mechanical Test Engineer Relationship Specialty Start Date End Date Enedina Mcguire NP [address] [place] [address] PCP - General Internal Medicine 10/05/24 Maureen Pantoja, ЮЛИЯ Txp Post Coordinator Transplant Hepatology 10/28/24 Chris Orosco MD [address] [facility] [address] [place] [address] Consulting Physician Transplant Hepatology 02/26/25
--- OUTSIDE RECORDS SUMMARY | 2025-03-13 14:29 | XMS_ITS | Encounter Summary ---
Author Organization [facility] Address [facility] [place] [address] Care Team Providers Care Local Bulk Driver Name Role Phone Enedina Mcguire NP Primary Care Provider + [phone] Maureen Pantoja RN Unavailable Unavail able Source [...] release of HIV test results or diagnoses. [id number] Health Encounter Details Date Type Department Care [...] Recorded In the past 12 months has [employer], [employer], oil, or water [employer] threatened to shut off services in your [...] as of this encounter Care Teams Local Bulk Driver Relationship Specialty Start Date End Date Enedina Mcguire NP [address] [place] [address] PCP - General Internal Medicine 10/05/24 Maureen Pantoja, ЮЛИЯ Txp Post Coordinator Transplant Hepatology 10/28/24 documented as of this encounter
--- OUTSIDE RECORDS SUMMARY | 2025-03-13 14:29 | XMS_ITS | Encounter Summary ---
Author Organization [facility] Address [address] [place] [address] Care Team Providers Care Outside Solar Sales Consultant Name Role Phone Enedina Mcguire NP Primary Care Provider + [phone] Maureen Pantoja RN Unavailable Unavail able Chris Orosco MD Unavailable [phone] Source Comments This information has been disclosed [...] release of HIV test results or diagnoses. [id number] Encounter Details Date Type Department Care Team (Late st Contact Info) Description 03/04/2025 Chart Note [facility] Liver Transplant at [place] [id number] [address] Marlene Ro MA 03/04 Labs entered from [facility] Social History Tobacco Use Types Packs/Day Years Used Date Smoking Tobacco: Former Cigarettes Smokeless Tobacco: Current Alcohol Use Standard Drinks/Week Comments Yes 0 (1 standard drink = 0.6 oz pure alcohol) History of alcohol abuse, reports no use in 3 week- typically endorses use as 4 glasses of wine a days Utilities Answer Date Recorded In the past 12 months has [place], gas, oil, or water company threatened to [...] 11:29 AM EDT HEPATIC FUNCTION PANEL Routine 03/04/2025 11:29 AM EDT TACROLIMUS LEVEL Routine 03/04/2025 11:2 9 AM EDT CREATININE, URINE, RANDOM Routine 03/04/2025 11:29 AM EDT VITAMIN D 25 HYDROXY Routine 03/04/2025 11:29 AM EDT URINALYSIS W/RFL TO MICROSCOPIC Routine 03/04/2025 11:29 AM EDT CBC AND DIFFERENTIAL Routine 03/04/2025 11:29 AM EDT URINE CULTURE Routine 03/04/2025 11:29 AM EDT MAGNESIUM Routine 03/04/2025 11:29 AM EDT RENAL FUNCTION PANEL W/O EGFR Routine 03/04/2025 11:29 AM EDT documented in this encounter Results * Tacrolimus level (03/04/2025 11:29 AM EDT) Tacrolimus Lvl 14.6 6 - 15 ng/mL Whole Blood us Historical Provider LAB BLOOD ORDERABLES Denisse l Result * Urine culture (03/04/2025 11:29 AM EDT) Urine Culture, Comprehensive no growth after 48 hours URINE SPECIMEN / Unknown Result [facility] Provider MICROBIOLOGY - GENERAL OR DERABLES Final Result * (ABNORMAL) Magnesium (03/04/2025 11:29 AM EDT) Pathologist [facility] Magnesium 1.4(A) 1.6 - 2.4 mg/dL Plasma Narrative Resulting Agency Comment [facility] Result [facility] Provider LAB BLOOD ORDERABLES Denisse l Result * (ABNORMAL) Renal Function Panel w/o EGFR (03/04/2025 11:29 AM EDT) Glucose 120 BUN 18 CO2 27(A) 13 - 22 mmol/L Creatinine 1.20 Potassium 3.7 Sodium 138 Chloride 98 Phosphorus 4.4 2.5 - 4.9 mg/dL Calcium 9.4 EGFR 67 mg/dL Albumin 4.8 3.5 - 5.0 g/dL Blood Narrative Resulting Agency Comment [facility] Result [facility] Provider LAB BLOOD ORDERABLES Denisse l Result * Creatinine, urine, random (03/04/2025 11:29 AM EDT) Pathologist [facility] Creatinine, Urine 111 Urine Narrative Resulting Agency Comment [facility] Result [facility] Provider URINE ORDERABLES Final Re sult * (ABNORMAL) Urinalysis w/Rfl to Microscopic (03/04/2025 11:29 AM EDT) Pathologist [facility] Glucose, UA Negative Negative Ketones, UA Negative Negative Blood, UA Negative Negative Bilirubin, UA Negative Negative Urobilinogen, UA Normal Normal Protein, UA Trace(A) Negative Nitrite, UA Negative Negative pH, UA 5.5 4.5 - 8.0 Specific [place], UA 1.020 1.005 - 1.030 Clarity, UA Clear Clear Color, UA Yellow Light Yellow, Yellow Urine Narrative Resulting Agency Comment [facility] Result [facility] Provider URINE ORDERABLES Final Re sult * Vitamin D 25 hydroxy (03/04/2025 11:29 AM EDT) Vit D, 25-Hydroxy 38.4 Serum Narrative Resulting Agency Comment [facility] Historical Provider LAB BLOOD ORDERABLES Denisse l Result * (ABNORMAL) CBC and differential (03/04/2025 11:29 AM EDT) Hemoglobin 13.0(A) 13.5 - 17.5 g/dL Hematocrit [...] 7.7 10^3/mL Blood Narrative Resulting Agency Comment [facility] Historical Provider LAB BLOOD ORDERABLES Denisse l Result * Urine Protein, Tot, Random (w/o Creat) (03/04/2025 11:29 AM EDT) Total Protein, Ur 27.0 Urine Narrative Resulting Agency Comment [facility] Historical Provider URINE ORDERABLES Final Re sult * Hepatic Function Panel (03/04/2025 11:29 AM EDT) Bilirubin, Direct 0.2 Bilirubin, Indirect 0.7 Alkaline Phosphatase 155 ALT 39 AST 47 Total Bilirubin 0.9 Total Protein 7.5 Plasma Narrative Resulting Agency Comment [facility] us Historical Provider LAB BLOOD ORDERABLES Denisse l Result documented in this encounter Visit Diagnoses Not on filedocumented in this encounter Additional Health Concerns Infection Onset Date Last Indicated Resolved Time C. difficile 01/28/2025 01/28/2025 Assessment Noted Time PHQ-9 Depression Total Score: 2 12/11/19 9:00 AM EDT documented as of this encounter Care Teams Outside Solar Sales Consultant Relationship Specialty Start Date End Date Enedina Mcguire NP [address] [place] [address] PCP - General Internal Medicine 10/05/24 Maureen Pantoja, ЮЛИЯ Txp Post Coordinator Transplant Hepatology 10/28/24 Chris Orosco MD [address] [place] [address] [address] [place] [address] Consulting Physician Transplant Hepatology 02/26/25 documented as of this encounter
--- OUTSIDE RECORDS SUMMARY | 2025-03-13 14:29 | XMS_ITS | Encounter Summary ---
Author Organization [facility] Address [address] [place] [address] Care Team Providers Care Beef Specialist Name Role Phone Enedina Mcguire NP Primary Care Provider [phone] Maureen Pantoja RN Unavailable Unavail able Source [...] release of HIV test results or diagnoses. [id number] Reason for Visit * Reason Comments Medication Refill Encounter Details Date Type Department Care Team (Late st Contact Info) Description 12/21/2024 Refill [facility] Liver Transplant at [address] [address] Lydia Sanchez MD [address] [place] [address] Liver/[place] [address] Encounter for therapeutic drug monitoring; S/P liver transplant ([facility]); Hypomagnesemia; Kidney transplant recipient; Hypertension, [...] for therapeutic drug monitoring S/P liver transplant ([facility]) Hypomagnesemia Disorders of magnesium metabolism Kidney [...] as of this encounter Care Teams Beef Specialist Relationship Specialty Start Date End Date Enedina Mcguire NP [address] [place] [address] PCP - General Internal Medicine 10/05/24 Maureen Pantoja, RN Txp Post Coordinator Transplant Hepatology 10/28/24 documented as of this encounter
--- OUTSIDE RECORDS SUMMARY | 2025-03-13 14:29 | XMS_ITS | Encounter Summary ---
Author Organization [facility] Address [address] [place] [address] Care Team Providers Care Tub Wash Operator Name Role Phone Enedina Mcguire NP Primary Care Provider + [phone] Maureen Pantoja RN Unavailable Unavail able Chris Orosco MD Unavailable [phone] Source Comments This information has been disclosed [...] release of HIV test results or diagnoses. [id number] Encounter Details Date Type Department Care Team (Late st Contact Info) Description 02/23/2025 Chart Note [facility] Liver Transplant at [address] [address] Marlene Ro MA 02/18 Labs entered from [facility] Social History Tobacco Use Types Packs/Day Years Used Date Smoking Tobacco: Former Cigarettes Smokeless Tobacco: Current Alcohol Use Standard Drinks/Week Comments Yes 0 (1 standard drink = 0.6 oz pure alcohol) History of alcohol abuse, reports no use in 3 week- typically endorses use as 4 glasses of wine a days Utilities Answer Date Recorded In the past 12 months has [employer], gas, oil, or water company threatened to [...] were not included. 02/18 Labs entered from [facility] Pet Pending documented in this encounter [...] (ABNORMAL) Magnesium (02/18/2025 10:34 AM EDT) Pathologist [facility] Magnesium 1.4(A) 1.6 - 2.4 mg/dL Plasma Narrative Resulting Agency Comment [facility] Result On license of [facility] LAB BLOOD ORDERABLES Denisse l Result * (ABNORMAL) Renal Function Panel w/o EGFR (02/18/2025 10:34 AM EDT) Glucose 84 BUN 24 CO2 31(A) 13 - 22 mmol/L Creatinine 1.10 Potassium 4.3 Sodium 140 Chloride 99 Phosphorus 4.9 2.5 - 4.9 mg/dL Calcium 9.1 EGFR 74 mg/dL Albumin 4.4 3.5 - 5.0 g/dL Blood Narrative Resulting Agency Comment [facility] Result On license of [facility] LAB BLOOD ORDERABLES Denisse l Result * Tacrolimus level (02/18/2025 10:34 AM EDT) [facility] Tacrolimus Lvl 10.7 6 - 15 ng/mL Whole Blood Narrative Resulting Agency Comment [facility] Result On license of [facility] LAB BLOOD ORDERABLES Denisse l Result * Creatinine, urine, random (02/18/2025 10:34 AM EDT) [facility] Creatinine, Urine 54 Urine Narrative Resulting Agency Comment [facility] Result On license of [facility] URINE ORDERABLES Final Re sult * Urinalysis w/Rfl to Microscopic (02/18/2025 10:34 AM EDT) Pathologist [facility] Glucose, UA Negative Negative Ketones, UA Negative Negative Blood, UA Negative Negative Bilirubin, UA Negative Negative Urobilinogen, UA Normal Normal Protein, UA Negative Negative pH, UA 5.5 4.5 - 8.0 Specific [place], UA 1.015 1.005 - 1.030 Clarity, UA Clear Clear Color, UA Yellow Light Yellow, Yellow Urine Narrative Resulting Agency Comment [facility] Result [facility] Historical Provider URINE ORDERABLES Final Re [...] 4.9 10^3/mL Blood Narrative Resulting Agency Comment [facility] Result [facility] Historical Provider LAB BLOOD ORDERABLES Denisse l Result * Urine Protein, Tot, Random (w/o Creat) (02/18/2025 10:34 AM EDT) Total Protein, Ur 22.0 Urine Narrative Resulting Agency Comment [facility] Result [facility] Historical Provider URINE ORDERABLES Final Re sult * Hepatic Function Panel (02/18/2025 10:34 AM EDT) Bilirubin, Direct 0.0 Bilirubin, Indirect 0.5 Alkaline Phosphatase 85 ALT 19 AST 24 Total Bilirubin 0.5 Total Protein 7.1 Plasma Narrative Resulting Agency Comment [facility] us Historical Provider LAB BLOOD ORDERABLES Denisse l Result documented in this encounter Visit Diagnoses Not on filedocumented in this encounter Additional Health Concerns Infection Onset Date Last Indicated Resolved Time C. difficile 01/28/2025 01/28/2025 Assessment Noted Time PHQ-9 Depression Total Score: 2 12/11/19 25 9:00 AM EDT documented as of this encounter Care Teams Tub Wash Operator Relationship Specialty Start Date End Date Enedina Mcguire NP [address] [place] [address] PCP - General Internal Medicine 10/05/24 Maureen Pantoja RN Txp Post Coordinator Transplant Hepatology 10/28/24 Chris Orosco MD [address] [place] [address] [address] [place] [address] Consulting Physician Transplant Hepatology 02/26/25 documented as of this encounter
--- OUTSIDE RECORDS SUMMARY | 2025-03-13 14:29 | XMS_ITS | Encounter Summary ---
Author Organization [facility] Address [address] [place] [address] Care Team Providers Care Creative Services Producer Name Role Phone Enedina Mcguire NP Primary Care Provider + [phone] Maureen Pantoja RN Unavailable Unavail able Source [...] release of HIV test results or diagnoses. [id number] Reason for Visit * Reason Comments Results Encounter Details Date Type Department Care Team (Riky mcdaniel Contact Info) Description 02/13/2025 Telephone [facility] Liver Transplant at [address] [address] Marisela Martinez MA Results Social [...] In the past 12 months has e [employer], gas, oil, or water [employer] threatened to shut off services in your [...] after discussionwith transplant ID and transplant nephrology. Runa message sent to patient. * Mariola Quintana RN - 02/13/2025 9:09 AM EDT Covering RN Coordinator aware. Will route to Txp Provider for further review and recommendations. * Marisela Martinez MA - 02/13/2025 8:38 AM EDT Ashley from [facility] outpt lab called to report a [...] as of this encounter Care Teams Creative Services Producer Relationship Specialty Start Date End Date Enedina Mcguire NP [address] [place] [address] PCP - General Internal Medicine 10/05/24 Maureen Pantoja, ЮЛИЯ Txp Post Coordinator Transplant Hepatology 10/28/24 documented as of this encounter
--- OUTSIDE RECORDS SUMMARY | 2025-03-13 14:30 | XMS_ITS | Encounter Summary ---
Author Organization [facility] Address [address] [place] [address] Care Team Providers Care Hydroelectric Station Chief Name Role Phone Enedina Mcguire NP Primary Care Provider + [phone] Maureen Pantoja RN Unavailable Unavail able Source [...] release of HIV test results or diagnoses. [id number] Reason for Visit * Reason Comments Results Encounter Details Date Type Department Care Team (Riky st Contact Info) Description 01/16/2025 Telephone [facility] Liver Transplant at [address] [address] Maureen Pantoja, RN Results Social [...] In the past 12 months has e [employer], gas, oil, or water [employer] threatened to shut off services in your [...] documented as of this encounter Care Teams Hydroelectric Station Chief Relationship Specialty Start Date End Date Enedina Mcguire NP [address] [place] [address] PCP - General Internal Medicine 10/05/24 Maureen Pantoja, ЮЛИЯ Txp Post Coordinator Transplant Hepatology 10/28/24 documented as of this encounter
--- OUTSIDE RECORDS SUMMARY | 2025-03-13 14:30 | XMS_ITS | Encounter Summary ---
Author Organization [employer] ([place], [place], [place], [place], [place]) Address [address] [place] [address] Care Team Providers Care Mother'S Helper Name Role Phone Unavailable Primary Care Provider Carmen e Encounter Details Date Type Department Care Team (Late st Contact Info) Description 06/03/2018 Transcribed Document [facility] Family [facility] [place] [address] ProviderEbenezer MD [address], [place] [id number] Social History Tobacco Use Types Packs/Day Years [...] - Historical ProviderMD - 06/03/2018 1:05 PM EMAIL SPECIALIST Patient: JULIEN ZELAYA Age: 33 years Sex: [...] s/p picking up a glass 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 lacerations noted with bleeding controlled . History [...] EST Height Source Stated Height Entry Format Eldon Height/Length, BANGLADESHI (ft) 6 ft Height/Length BANGLADESHI 4 Inch CLINICALHEIGHT 193.04 cm [place] Body Weight 85.74 kg Weight Source, ED Standing scale Weight Entry Format [place]on Weight Eritrean lb 265 lb CLINICALWEIGHT 120.45 kg Body [...] 14:22 EST, Discharge to: Home. Prescriptions: Prescription [facility]: Keflex 500 mg oral capsule (Prescribe): [...]
--- OUTSIDE RECORDS SUMMARY | 2025-03-13 14:30 | XMS_ITS | Encounter Summary ---
Author Organization [facility] Address [address] [place] [address] Care Team Providers Care Dining Services Manager Name Role Phone Enedina Mcguire NP Primary Care Provider + [phone] Maueren Pantoja RN Unavailable Unavail able Source Comments [...] release of HIV test results or diagnoses. [id number] Health Encounter Details Date Type Department Care Team (Late st Contact Info) Description 01/15/2025 Telephone [facility] Liver Transplant at [address] [address] Marlene Ro MA Social History [...] Recorded In the past 12 months has [employer], gas, oil, or water [employer] threatened to shut off services in [...] AM EDT I spoke with Gavin at [facility] about the phosphatidylethanol order tied to the patient???s registration. Although the order was found, it wasn???t sent to phlebotomy, so no test was done on 01/14. Due to this recurring issue, I contacted the liquor stores and agencies supervisor, Gladys. We agreed I would notify the lab directly of one-time and standing orders and fax them at [phone] to prevent future errors. Gladys is also [...] as of this encounter Care Teams Dining Services Manager Relationship Specialty Start Date End Date Enedina Mcguire NP [address] [place] [address] PCP - General Internal Medicine 10/05/24 Maureen Pantoja, RN Txp Post Coordinator Transplant Hepatology 10/28/24 documented as of this encounter
--- OUTSIDE RECORDS SUMMARY | 2025-03-13 14:30 | XMS_ITS | Encounter Summary ---
Author Organization [facility] Address [address] [place] [address] Care Team Providers Care Mold Tooling Technician Name Role Phone Enedina Mcguire NP Primary Care Provider + [phone] Maureen Pantoja RN Unavailable Unavail able Source [...] release of HIV test results or diagnoses. [id number] Health Encounter Details Date Type Department Care Team (Late st Contact Info) Description 02/23/2025 Telephone [facility] Liver Transplant at [address] [address] Marlene Ro MA Social History [...] Recorded In the past 12 months has [employer], gas, oil, or water [employer] threatened to shut off services in [...] documented as of this encounter Care Teams Mold Tooling Technician Relationship Specialty Start Date End Date Enedina Mcguire NP [address] [place] [address] PCP - General Internal Medicine 10/05/24 Maureen Pantoja, ЮЛИЯ Txp Post Coordinator Transplant Hepatology 10/28/24 documented as of this encounter
--- OUTSIDE RECORDS SUMMARY | 2025-03-13 14:30 | XMS_ITS | Encounter Summary ---
Author Organization [employer] ([place], [place], [place], [place], [place]) Address [address] [place] [address] Care Team Providers Care Spot Sprayer Name Role Phone Unavailable Primary Care Provider Unavaillia e Encounter Details Date Type Department Care Team (Late st Contact Info) Description 06/03/2018 Transcribed Document [facility] Family Medicine [facility] [place] [address] ProviderEbenezer MD [address] [place] [address] Social History Tobacco Use Types [...] - Historical ProviderMD - 06/03/2018 3:04 PM CHIP WASHER [place] [address] [place] [place] [address] PERSON INFORMATION Name JULIEN ZELAYA Age 33 Years 1985 Sex Male Language Sami PCP SALLY EVERETT (REF) T Marital Status Single Med Service Emergency Medicine Acct# Arrival 06/03/2018 12:08:00 Visit Reason Finger laceration; CUT FINGERS Acuity 3 - Urgent LOS 000 02:56 Depart Date: 06/03/18 03:04 PM Address: [facility] [id number] Comment: PROVIDER INFORMATION Provider Role Assigned Unassigned Lizeth Almeida, PERSONNEL TECHNICIAN Nurse 06/03/2018 12:39:09 DOMINIQUE BREWER PA-C [...] PURI # 2C [address] [place] [address] [place], [employer] [id number] [employer] (1[place] Within 2 to 3 days Comment: documented in this encounter Plan of Treatment Not on file documented as of this encounter Visit Diagnoses Not on filedocumented in this encounter
--- OUTSIDE RECORDS SUMMARY | 2025-03-13 14:30 | XMS_ITS | Encounter Summary ---
Author Organization [employer] ([place], [place], [place], [place], [place]) Address [address] [place] [address] Care Team Providers Care Manager Plant Name Role Phone Unavailable Primary Care Provider Carmen jimenez Encounter Details Date Type Department Care Team (Late st Contact Info) Description 06/03/2018 Transcribed Document [facility] Family Medicine [place] [address] ProviderEbenezer MD [address] [place] [address] Social History Tobacco Use Types [...] - Historical ProviderMD - 06/03/2018 3:04 PM MARKETING INTELLIGENCE MANAGER [address] [place] [address] Patient Information Name: JULIEN ZELAYA [...] [address] [place] [address] [place] [address] Voices (1) Within 2 to 3 days Patient [...] off of the skin. General Instructions??? Take wkst-nig-hyxmxbd and prescription medicines only as told by [...] 04/30/2006 Document Revised: 09/29/2016 Document Reviewed: 04/26/2015 [employer] Interactive Patient Education ? 2017 [employer] Allergies: No Known Medication Allergies Medication [...] verify that JULIEN ZELAYA was seen at [facility] on ,06/03/2018 15:04:17. This is [...] Assistance with quitting is available by contacting 5-360-NQJO-NOW. This is a free resource providing counseling, [...] Electronic Communications Privacy Act 18 U.S.C. ???Sections 8484-8026,?? and contain information intended for the specified [...] sure to sign up for the [facility] [place] patient portal, which gives you 04/12 access to your medical information ??? including these discharge instructions ??? using your computer, smartphone, or tablet. Just go to [employer] to get started. Questions? Call . Acknowledgment [...]
--- OUTSIDE RECORDS SUMMARY | 2025-03-13 14:30 | XMS_ITS | Referral Summary ---
Author Organization [employer] ([place], [place], [place], [place], [place]) Address [address] [place] [address] Care Team Providers Care Lamp Inspector Name Role Phone Unavailable Primary Care [...]
--- OUTSIDE RECORDS SUMMARY | 2025-03-13 14:30 | XMS_ITS | Encounter Summary ---
Author Organization [facility] Address [address] [place] [address] Care Team Providers Care Pool Hand Name Role Phone Enedina Mcguire NP Primary Care Provider + [phone] Maureen Pantoja RN Unavailable Unavail able Source [...] release of HIV test results or diagnoses. [id number] Reason for Visit * Reason Comments Critical Lab Results Encounter Details Date Type Department Care Team (Late st Contact Info) Description 01/19/2025 Telephone [facility] Liver Transplant at [address] [place] [phone] Gladis Chisholm MA Critical Lab Results [...] In the past 12 months has e [employer], gas, oil, or water [employer] threatened to shut off services in your [...] Chisholm MA - 01/19/2025 9:17 AM EDT [facility] lab called to report: Urine [...] documented as of this encounter Care Teams Pool Hand Relationship Specialty [place] [address] [place], [place] [id number] PCP - General Internal Medicine 10/05/24 Maureen Pantoja, RN Txp Post Coordinator Transplant Hepatology 10/28/24 documented as of this encounter
--- OUTSIDE RECORDS SUMMARY | 2025-03-13 14:30 | XMS_ITS | Encounter Summary ---
Author Organization [facility] Address [address] [place] [address] Care Team Providers Care Pivot End Polisher Name Role Phone Enedina Mcguire NP Primary Care Provider + [phone] Maureen Pantoja RN Unavailable Unavail able Source [...] release of HIV test results or diagnoses. [id number] Health Encounter Details Date Type Department Care Team (Late st Contact Info) Description 01/14/2025 Telephone [facility] Liver Transplant at [address] [address] Marlene Ro MA Social [...] Recorded In the past 12 months has [employer], gas, oil, or water [employer] threatened to shut off services in [...] documented as of this encounter Care Teams Pivot End Polisher Relationship Specialty Start Date End Date Enedina Mcguire NP [address] [place] [address] PCP - General Internal Medicine 10/05/24 Maureen Pantoja, ЮЛИЯ Txp Post Coordinator Transplant Hepatology 10/28/24 documented as of this encounter
--- OUTSIDE RECORDS SUMMARY | 2025-03-13 14:30 | XMS_ITS | Encounter Summary ---
Author Organization [facility] Address [address] [place] [address] Care Team Providers Care Dentist Private Practice Name Role Phone Enedina Mcguire NP Primary Care Provider + [phone] Maureen Pantoja RN Unavailable Unavail able Source [...] release of HIV test results or diagnoses. [id number] Health Encounter Details Date Type Department Care Team (Late st Contact Info) Description 02/03/2025 Telephone [facility] Liver Transplant at [address] [address] Marlene Ro MA Social History [...] Recorded In the past 12 months has [employer] gas, oil, or water [employer] threatened to shut off services in your [...] Date End Date Enedina Mcguire NP [address] [place] [address] PCP - General Internal Medicine 10/05/24 Maureen Pantoja, RN Txp Post Coordinator Transplant Hepatology 10/28/24 documented as of this encounter
--- OUTSIDE RECORDS SUMMARY | 2025-03-13 14:30 | XMS_ITS | Encounter Summary ---
Author Organization [facility] Address [address] [place] [address] Care Team Providers Care Fretted Instruments Inspector Name Role Phone Enedina Mcguire NP Primary Care Provider + [phone] Maureen Pantoja RN Unavailable Unavail able Source [...] release of HIV test results or diagnoses. [id number] Health Encounter Details Date Type Department Care Team (Late st Contact Info) Description 02/09/2025 Chart Note [facility] Liver Transplant at [address] [place] [phone] Marisela Martinez MA Social History Tobacco Use [...] Recorded In the past 12 months has [employer], gas, oil, or water [employer] threatened to shut off services in [...] as of this encounter Care Teams Fretted Instruments Inspector Relationship Specialty Start Date End Date Enedina Mcguire NP [address] [place] [address] PCP - General Internal Medicine 10/05/24 Maureen Pantoja, ЮЛИЯ Txp Post Coordinator Transplant Hepatology 10/28/24 documented as of this encounter
--- OUTSIDE RECORDS SUMMARY | 2025-03-13 14:30 | XMS_ITS | Encounter Summary ---
Author Organization [facility] ([place], [place], [place], [place], [place]) Address [address] [place] [address] Care Team Providers Care Shower Room Attendant Name Role Phone Unavailable Primary Care Provider Unavailabl e Encounter Details Date Type Department Care Team (Late st Contact Info) Description 06/03/2018 Transcribed Document [facility] Family Medicine [address] [place] [address] ProviderEbenezer MD [address] [place], [place] [id number] Social History Tobacco Use Types Packs/Day Years [...] - Historical ProviderMD - 06/03/2018 12:08 PM BASKET GRADER ED Assessment Entered On: 06/03/2018 14:51 EST Performed On: 06/03/2018 13:50 EST by Lizeth Almeida, MIXER WET POUR Quick Look Assessment Level of Consciousness : Alert Affect/Behavior : Calm, Cooperative Orientation : Oriented x 4 Skin Color : Other: Monserrate Skin Temperature : Warm Skin Description : Dry Lizeth Almeida, RN - 06/03/2018 14:50 EST ED General-Functional Assess Communication Barrier : None Primary Language : New Zealander Any Spiritual/Cultural Needs or Requests : No [...] Electronically signed by Luis Eduardo Ochoa Conversion Slot Operations Director [employer] at 08/29/2022 6:34 PM CDT documented in this encounter Plan of Treatment Not on file documented as of this encounter Visit Diagnoses Not on filedocumented in this encounter
--- OUTSIDE RECORDS SUMMARY | 2025-03-13 14:30 | XMS_ITS | Encounter Summary ---
Author Organization [facility] Address [address] [place] [address] Care Team Providers Care Insulation Inspector Name Role Phone Enedina Mcguire NP Primary Care Provider + [phone] Maureen Pantoja RN Unavailable Unavail able Source [...] release of HIV test results or diagnoses. [id number] Health Encounter Details Date Type Department Care Team (Late st Contact Info) Description 02/10/2025 Chart Note [facility] Liver Transplant at [address] [place] [phone] Marlene Ro MA 02/10 Labs entered from [facility] [...] Recorded In the past 12 months has [employer], gas, oil, or water [employer] threatened to shut off services in your [...] were not included. 02/10 Labs entered from [facility] [...] Phosphatidylethanol (PEth) Positive 288 Whole Blood Result [facility] MD LAB BLOOD ORDERABLES Denisse l Result * BK Virus Quantitative by PCR, Blood (02/10/2025 9:33 AM EDT) [facility] BK Virus Quant PCR PL Negative Plasma Result [facility] MD LAB BLOOD ORDERABLES Denisse l Result * Tacrolimus level (02/10/2025 9:33 AM EDT) [facility] Tacrolimus Lvl 12.5 6 - 15 ng/mL Whole Blood Result [facility] MD LAB BLOOD ORDERABLES Denisse l Result * Cytomegalovirus DNA, Quant, RT PCR (02/10/2025 9:33 AM EDT) [facility] CMV Quant DNA PCR (Plasma) Negative Plasma Result [facility] MD LAB BLOOD ORDERABLES Denisse l Result * (ABNORMAL) Magnesium (02/10/2025 9:33 AM EDT) [facility] Magnesium 1.4(A) 1.6 - 2.4 mg/dL Plasma Narrative Resulting Agency Comment [facility] Result [facility] MD LAB BLOOD ORDERABLES Denisse l Result * (ABNORMAL) Renal Function Panel w/o EGFR (02/10/2025 9:33 AM EDT) [facility] Glucose 101 BUN 15 CO2 26(A) 13 - 22 mmol/L Creatinine 0.90 Potassium 4.1 Sodium 141 Chloride 102 Phosphorus 4.8 2.5 - 4.9 mg/dL Calcium 9.4 EGFR 93 mg/dL Albumin 4.7 3.5 - 5.0 g/dL Blood Narrative Resulting Agency Comment [facility] Result [facility] LAB BLOOD ORDERABLES Denisse l Result * Creatinine, urine, random (02/10/2025 9:33 AM EDT) Creatinine, Urine 62 Urine Narrative Resulting Agency Comment [facility] Result [facility] Provider URINE ORDERABLES Final Re sult * Urinalysis w/Rfl to Microscopic (02/10/2025 9:33 AM EDT) Pathologist [facility] Glucose, UA Negative Negative Ketones, UA Negative Negative Blood, UA Negative Negative Bilirubin, UA Negative Negative Urobilinogen, UA Normal Normal Protein, UA Negative Negative pH, UA 6.0 4.5 - 8.0 Specific [place], UA 1.020 1.005 - 1.030 Clarity, UA Clear Clear Color, UA Yellow Light Yellow, Yellow Urine Narrative Resulting Agency Comment [facility] Result [facility] Provider URINE ORDERABLES Final Re sult [...] 10^3/mL Blood Narrative Resulting Agency Comment [facility] Result [facility] Provider LAB BLOOD ORDERABLES Denisse l Result * Urine Protein, Tot, Random (w/o Creat) (02/10/2025 9:33 AM EDT) Total Protein, Ur 13.0 Urine Narrative Resulting Agency Comment [facility] Provider URINE ORDERABLES Final Re sult * Hepatic Function Panel (02/10/2025 9:33 AM EDT) Bilirubin, Direct 0.4 Bilirubin, Indirect 0.4 Alkaline Phosphatase 74 ALT 16 AST 25 Total Bilirubin 0.7 Total Protein 6.7 Plasma Narrative Resulting Agency Comment [facility] Result [facility] Provider LAB BLOOD ORDERABLES Denisse l Result documented in this encounter Visit Diagnoses Not on filedocumented in this encounter Additional Health Concerns Infection Onset Date Last Indicated Resolved Time C. difficile 01/28/2025 01/28/2025 Assessment Noted Time PHQ-9 Depression Total Score: 2 12/11/19 25 9:00 AM EDT documented as of this encounter Care Teams Insulation Inspector Relationship Specialty Start Date End Date Enedina Mcguire NP [address] [place] [address] PCP - General Internal Medicine 10/05/24 Maureen Pantoja, RN Txp Post Coordinator Transplant Hepatology 10/28/24 documented as of this encounter
--- OUTSIDE RECORDS SUMMARY | 2025-03-13 14:30 | XMS_ITS | Encounter Summary ---
Author Organization [facility] Address [address] [place] [address] Care Team Providers Care Pharmacy Services Director Name Role Phone Enedina Mcguire NP Primary Care Provider + [phone] Maureen Pantoja RN Unavailable Unavail able Source [...] release of HIV test results or diagnoses. [id number] Health Encounter Details Date Type Department Care Team (Late st Contact Info) Description 01/15/2025 Chart Note [facility] Liver Transplant at [address] [place] [phone] Marlene Ro MA 01/14 Labs entered from [facility] Social History Tobacco Use Types Packs/Day Years Used Date Smoking Tobacco: Former Cigarettes Smokeless Tobacco: Current Alcohol Use Standard Drinks/Week Comments Yes 0 (1 standard drink = 0.6 oz pure alcohol) History of alcohol abuse, reports no use in 3 week- typically endorses use as 4 glasses of wine a days Utilities Answer Date Recorded In the past 12 months has e [employer], gas, oil, or water [employer] threatened to shut off services in [...] were not included. 01/14 Labs entered from [facility] documented in this encounter Plan of [...] 6 - 15 ng/mL Whole Blood Result [facility] Provider LAB BLOOD ORDERABLES Denisse l Result * (ABNORMAL) Magnesium (01/14/2025 10:53 AM EDT) [facility] Magnesium 1.2(A) 1.6 - 2.4 mg/dL Plasma Narrative Resulting Agency Comment [facility] Result [facility] LAB BLOOD ORDERABLES Denisse l Result * Renal Function Panel w/o EGFR (01/14/2025 10:53 AM EDT) [facility] Glucose 94 BUN 19 CO2 21 13 - 22 mmol/L Creatinine 1.00 Potassium 4.4 Sodium 140 Chloride 109 Phosphorus 4.8 2.5 - 4.9 mg/dL Calcium 9.5 EGFR 82 mg/dL Albumin 4.8 3.5 - 5.0 g/dL Blood Narrative Resulting Agency Comment [facility] Result [facility] LAB BLOOD ORDERABLES Denisse l Result * Creatinine, urine, random (01/14/2025 10:53 AM EDT) [facility] Creatinine, Urine 90 Urine Narrative Resulting Agency Comment [facility] Result [facility] Provider URINE ORDERABLES Final Re sult * Urinalysis w/Rfl to Microscopic (01/14/2025 10:53 AM EDT) [facility] Glucose, UA Negative Negative Ketones, UA Negative Negative Blood, UA Negative Negative Bilirubin, UA Negative Negative Urobilinogen, UA Normal Normal Protein, UA Negative Negative Nitrite, UA Negative Negative pH, UA 5.5 4.5 - 8.0 Specific [place], UA 1.020 1.005 - 1.030 Clarity, UA Clear Clear Color, UA Yellow Light Yellow, Yellow Urine Narrative Resulting Agency Comment [facility] Result [facility] Provider URINE ORDERABLES Final Re sult [...] Agency Comment [facility] Result [facility] LAB BLOOD ORDERABLES Denisse l Result * Urine Protein, Tot, Random (w/o Creat) (01/14/2025 10:53 AM EDT) Total Protein, Ur 13.0 Urine Narrative Resulting Agency Comment [facility] Result [facility] Provider URINE ORDERABLES Final Re sult * Hepatic Function Panel (01/14/2025 10:53 AM EDT) Bilirubin, Direct 0.2 Bilirubin, Indirect 0.5 Alkaline Phosphatase 49 ALT 15 AST 24 Total Bilirubin 0.7 Total Protein 6.8 Plasma Narrative Resulting Agency Comment [facility] Result [facility] Provider LAB BLOOD ORDERABLES [...] documented as of this encounter Care Teams Pharmacy Services Director Relationship Specialty Start Date End Date Enedina Mcguire NP [address] [place] [address] PCP - General Internal Medicine 10/05/24 Maureen Pantoja, ЮЛИЯ Txp Post Coordinator Transplant Hepatology 10/28/24 documented as of this encounter
--- OUTSIDE RECORDS SUMMARY | 2025-03-13 14:30 | XMS_ITS | Encounter Summary ---
Author Organization [facility] Address [address] [place] [address] Care Team Providers Care Information Technology Technician Name Role Phone Enedina Mcguire NP Primary Care Provider + [phone] Maureen Pantoja RN Unavailable Unavail able Source [...] release of HIV test results or diagnoses. [id number] Health Encounter Details Date Type Department Care Team (Late st Contact Info) Description 02/04/2025 Telephone [facility] Liver Transplant at [address] [phone] Marlene Ro MA Social History [...] Recorded In the past 12 months has [employer], gas, oil, or water [employer] threatened to shut off services in your [...] - 02/04/2025 2:47 PM EDT Spoke with Mian regarding a pending Peth order from 01/20. [...] documented as of this encounter Care Teams Information Technology Technician Relationship Specialty Start Date End Date Enedina Mcguire NP [address] [place] [address] PCP - General Internal Medicine 10/05/24 Maureen Pantoja, ЮЛИЯ Txp Post Coordinator Transplant Hepatology 10/28/24 documented as of this encounter
--- OUTSIDE RECORDS SUMMARY | 2025-03-13 14:30 | XMS_ITS | Encounter Summary ---
Author Organization [facility] Address [address] [place] [address] Care Team Providers Care Catering Sous Chef Name Role Phone Enedina Mcguire NP Primary Care Provider + [phone] Maureen Pantoja RN Unavailable Unavail able Source [...] release of HIV test results or diagnoses. [id number] Health Encounter Details Date Type Department Care Team (Late st Contact Info) Description 01/15/2025 Telephone [facility] Liver Transplant at [address] [phone] Kaylin Willard MSW Social History [...] Recorded In the past 12 months has [employer], gas, oil, or water [employer] threatened to [...] continue to utilize these supports. NUBIA Barros, [facility] Transplant Cloth Cutting Inspector documented in this encounter Plan of Treatment [...] as of this encounter Care Teams Catering Sous Chef Relationship Specialty Start Date End Date Enedina Mcguire NP [address] [place] [address] PCP - General Internal Medicine 10/05/24 Maureen Pantoja, RN Txp Post Coordinator Transplant Hepatology 10/28/24 documented as of this encounter
--- OUTSIDE RECORDS SUMMARY | 2025-03-13 14:30 | XMS_ITS | Encounter Summary ---
Author Organization [facility] Address [address] [place] [address] Care Team Providers Care Customer Counter Representative Name Role Phone Enedina Mcguire NP Primary Care Provider + [phone] Maureen Pantoja RN Unavailable Unavail able Source [...] release of HIV test results or diagnoses. [id number] Health Encounter Details Date Type Department Care Team (Late st Contact Info) Description 02/03/[address] [facility] Liver Transplant at [address] [place] [phone] Marlene Ro MA 02/03 Labs entered from [facility] Social [...] Recorded In the past 12 months has [employer], gas, oil, or water [employer] threatened to shut off services in your [...] were not included. 02/03 Labs entered from [facility] documented [...] Positive Norovirus Detected FECES / Unknown Result [facility] Provider BODY FLUIDS AND STOOLS OR DERABLES Edited Result - Final * Phatidylethanol (PEth) (02/03/2025 9:39 AM EDT) Phosphatidylethanol (PEth) Positive 312 Whole Blood Result [facility] LAB BLOOD ORDERABLES Denisse l Result * Tacrolimus level (02/03/2025 9:39 AM EDT) Tacrolimus Lvl 7.0 6 - 15 ng/mL Whole Blood Narrative Resulting Agency Comment Kev [facility]leyPt Result [facility] LAB BLOOD ORDERABLES Denisse l Result * Cytomegalovirus DNA, Quant, RT PCR (02/03/2025 9:39 AM EDT) CMV Quant DNA PCR (Plasma) Negative Plasma Narrative Resulting Agency Comment Kev [facility]leyPt Result [facility] LAB BLOOD ORDERABLES Denisse l Result * BK Virus Quantitative by PCR, Blood (02/03/2025 9:39 AM EDT) BK Virus Quant PCR PL Negative Plasma Narrative Resulting Agency Comment [facility] LAB BLOOD ORDERABLES Denisse l Result * Creatinine, urine, random (02/03/2025 9:39 AM EDT) Creatinine, Urine 79 Urine Narrative Resulting Agency Comment [facility] Result [facility] Provider URINE ORDERABLES Final Re sult * Urine Protein, Tot, Random (w/o Creat) (02/03/2025 9:39 AM EDT) Pathologist [facility] Total Protein, Ur 12.0 Urine Narrative Resulting Agency [facility] Result [facility] Provider URINE ORDERABLES Final Re sult * Hepatic Function Panel (02/03/2025 9:39 AM EDT) Pathologist [facility] Bilirubin, Direct 0.1 Bilirubin, Indirect 0.4 Alkaline Phosphatase 61 ALT 15 AST 18 Total Bilirubin 0.5 Total Protein 6.4 Plasma Narrative Resulting Agency Comment Kev [facility] Result [facility] LAB BLOOD ORDERABLES Denisse l Result * (ABNORMAL) Magnesium (02/03/2025 9:39 AM EDT) [facility] Magnesium 1.3(A) 1.6 - 2.4 mg/dL Plasma Narrative Resulting Agency Comment Kev [facility] Result [facility] Provider LAB BLOOD ORDERABLES Denisse l Result * (ABNORMAL) Renal Function Panel w/o EGFR (02/03/2025 9:39 AM EDT) Pathologist [facility] Glucose 114 BUN 17 CO2 28(A) 13 - 22 mmol/L Creatinine 0.90 Potassium 4.1 Sodium 140 Chloride 103 Phosphorus 5.5(A) 2.5 - 4.9 mg/dL Calcium 9.4 EGFR 93 mg/dL Albumin 4.5 3.5 - 5.0 g/dL Blood Narrative Resulting Agency Comment [facility] Result [facility] Provider LAB BLOOD ORDERABLES Denisse l Result * Urinalysis w/Rfl to Microscopic (02/03/2025 9:39 AM EDT) Pathologist [facility] Glucose, UA Negative Negative Ketones, UA Negative Negative Blood, UA Negative Negative Bilirubin, UA Negative Negative Urobilinogen, UA Normal Normal Protein, UA Negative Negative Nitrite, UA Negative Negative pH, UA 6.0 4.5 - 8.0 Specific [place], UA 1.020 1.005 - 1.030 Clarity, UA Clear Clear Color, UA Yellow Light Yellow, Yellow Urine Narrative Resulting Agency Comment [facility] Historical Provider URINE ORDERABLES Final [...] 10^3/mL Blood Narrative Resulting Agency Comment Kev [facility] Historical Provider LAB BLOOD ORDERABLES Denisse l Result documented in this encounter Visit Diagnoses Not on filedocumented in this encounter Additional Health Concerns Infection Onset Date Last Indicated Resolved Time C. difficile 01/28/2025 01/28/2025 Assessment Noted Time PHQ-9 Depression Total Score: 2 12/11/19 25 9:00 AM EDT documented as of this encounter Care Teams Customer Counter Representative Relationship Specialty Start Date End Date Enedina Mcguire NP [address] [place] [address] PCP - General Internal Medicine 10/05/24 Maureen Pantoja, ЮЛИЯ Txp Post Coordinator Transplant Hepatology 10/28/24 documented as of this encounter
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
--- OUTSIDE RECORDS SUMMARY | 2025-03-13 14:30 | XMS_ITS | Encounter Summary ---
Author Organization [employer] ([place], [place], [place], [place], [place]) Address [address] [place] [address] Care Team Providers Care Touch Up Painter Name Role Phone Unavailable Primary Care Provider Unavailabl e Encounter Details Date Type Department Care Team (Late st Contact Info) Description 06/03/2018 Transcribed Document [facility] [place] [facility] Count includes the [facility] [address] ProviderEbenezer MD [address] [place], [place] [id number] Social History Tobacco Use Types Packs/Day Years [...] - Historical ProviderMD - 06/03/2018 2:24 PM REGULATORY COORDINATOR Electronically signed by Gabriela [facility] Conversion Gear Shaper Set Up Operator Cerner at 08/29/2022 6:41 PM CDT documented in this encounter Plan of Treatment Not on file documented as of this encounter Visit Diagnoses Not on filedocumented in this encounter
--- OUTSIDE RECORDS SUMMARY | 2025-03-13 14:30 | XMS_ITS ---
Author Organization [facility] Address [facility] [place] [address] Care Team Providers Care Transplant Nurse Practitioner Name Role Phone Enedina Mcguire NP Primary Care Provider + [phone] Maureen Pantoja RN Unavailable Unavail able Chris Orosco MD Unavailable [phone] Transplant Episode Kidney Recipient [facility] ([place], [place]) [facility] Organ Received: Left Kidney Transplanted on 10/27/2024 Marked as Active Follow-up on 10/27/2024 Kidney CoordinatorJosr Weber RN Phone: N/A Fax: N/A Email: N/A [place] Organ Diagnosis Organ Primary Contributory Kidney Hepatorenal [...] N/A N/A Flaquito Mayen MD Txp Surgeon [phone] N/A Bruno Gonzalez MD Txp Service Center Coordinator [phone] N/A Yovanny Curran MD Referring Physician [phone] N/A Events Post-Transplant Pre-Transplant Admitted: 10/25/2024 Referred: 10/07/2024 Transplanted: 10/27/2024 Evaluation began: 5 Discharged: 11/02/2024 Committee: 10/20/2024 Center waitlisted: 5 Appointments (02/10/2025 - 04/12/2025) When With Visit Type Description 02/25/2025 Tx Renal - Sara Gonzalez Established Patient K idney transplant recipient (Primary Dx); Neck pain with history of cervical spinal surgery; S/P liver transplant (CMS-HCC)
--- OUTSIDE RECORDS SUMMARY | 2025-03-13 14:30 | XMS_ITS ---
Author Organization [facility] Address [facility] [place] [address] Care Team Providers Care Flat Hammerer Name Role Phone Enedina Mcguire NP Primary Care Provider + [phone] Maureen Pantoja RN Unavailable Unavail able Chris Orosco MD Unavailable [phone] Transplant Episode Liver Recipient [facility] ([place] [place]) - [facility] Organ Received: Liver Transplanted on 10/26/2024 Marked as Active Follow-up on 10/26/2024 Liver CoordinatorMaureen Pantoja RN Phone: N/A Fax: N/A Email: N/A [place] Organ Diagnosis Organ Primary Contributory Liver Alcohol-Associated [...] N/A Chris Orosco MD Referring Physician Txp Global Position System Technician [phone] N/A Maureen Pantoja RN Txp Post Coordinator N/A N/A N/A NUBIA Barros Txp Steamer Tender N/A N/A N/A Harvey Domínguez III, MD Txp Surgeon [phone] N/A Mary Butler RN Txp Pre Coordinator N/A N/A N/A Events Post-Transplant Pre-Transplant Admitted: 10/25/2024 Referred: 08/13/2024 Transplanted: 10/26/2024 Evaluation began: Discharged: 11/02/2024 Committee: 10/14/2024 Center waitlisted: Pending Checklist Tasks (Due on or before 04/12/2025) Name Due Date Attached Appoint ment Social Work Consult 01/05/2025 Appointments (02/10/2025 - 04/12/2025) When With Visit Type Description 02/12/2025 Txp Tabatha Guillen ShaunnaDeepti, Ebony Established Patient Liver transplant recipient ([facility]) (Primary Dx); History of systemic steroid therapy; Kidney transplant recipient; Immunosuppressive management encounter following liver transplant ([facility]); Encounter for monitoring tacrolimus therapy; Vitamin D deficiency; Encounter for therapeutic drug monitoring; S/P liver transplant ([facility]); Hypomagnesemia; Hypertension, unspecified type; Gastroesophageal reflux disease, unspecified whether esophagitis present; Alcohol use disorder; Immunosuppression (CMS-HCC); Viral disease exposure
--- OUTSIDE RECORDS SUMMARY | 2025-03-13 14:30 | XMS_ITS | Encounter Summary ---
Author Organization [facility] Address [address] [place] [address] Care Team Providers Care Aqua Ammonia Operator Name Role Phone Enedina Mcguire NP Primary Care Provider [phone] Maureen Pantoja RN Unavailable Unavail able Source [...] release of HIV test results or diagnoses. [id number] Reason for Visit * Reason Comments Medication Refill Encounter Details Date Type Department Care Team (Late st Contact Info) Description 01/17/2025 Refill [facility] Liver Transplant at [address] [address] Harvey Domínguez III, MD [address] [place] [address] Encounter for therapeutic drug monitoring; S/P liver transplant ([facility]); Hypomagnesemia; Kidney transplant recipient; Hypertension, unspecified type; [...] documented as of this encounter Care Teams Aqua Ammonia Operator Relationship Specialty Start Date End Date Enedina Mcguire NP [address] [place] [address] PCP - General Internal Medicine 10/05/24 Maureen Pantoja, RN Txp Post Coordinator Transplant Hepatology 10/28/24 documented as of this encounter
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
--- OUTSIDE RECORDS SUMMARY | 2025-03-13 14:30 | XMS_ITS | Clinical Summary ---
Author Organization [employer] ([place], [place], [place], [place], [place]) Address [address] [place] [address] Care Team Providers Care Service Car Operator Name Role Phone Unavailable Primary Care [...]
--- OUTSIDE RECORDS SUMMARY | 2025-03-13 14:30 | XMS_ITS | Encounter Summary ---
Author Organization [facility] Address [address] [place] [address] Care Team Providers Care Oxygen Therapy Teacher Name Role Phone Enedina Mcguire NP Primary Care Provider + [phone] Maureen Pantoja RN Unavailable Unavail able Source [...] release of HIV test results or diagnoses. [id number] Health Encounter Details Date Type Department Care Team (Late st Contact Info) Description 02/09/2025 Telephone [facility] Liver Transplant at [address] [place] [phone] Marisela Martinez MA Social History Tobacco [...] Recorded In the past 12 months has [employer], [employer], oil, or water [employer] threatened to shut off services in your [...] documented as of this encounter Care Teams Oxygen Therapy Teacher Relationship Specialty Start Date End Date Enedina Mcguire NP [address] [place] [address] PCP - General Internal Medicine 10/05/24 Maureen Pantoja, ЮЛИЯ Txp Post Coordinator Transplant Hepatology 10/28/24 documented as of this encounter
--- OUTSIDE RECORDS SUMMARY | 2025-03-13 14:30 | XMS_ITS | Encounter Summary ---
Author Organization [facility] Address [address] [place] [address] Care Team Providers Care Channel Manager Name Role Phone Enedina Mcguire NP Primary Care Provider + [phone] Maureen Pantoja RN Unavailable Unavail able Source [...] release of HIV test results or diagnoses. [id number] Reason for Visit * Reason Comments Results Encounter Details Date Type Department Care Team (Riky st Contact Info) Description 02/12/2025 Telephone [facility] Liver Transplant at [address] [phone] Maureen Pantoja, RN Results Social [...] Recorded In the past 12 months has [employer], gas, oil, or water company threatened to [...] documented as of this encounter Care Teams Channel Manager Relationship Specialty Start Date End Date Enedina Mcguire NP [address] [place] [address] PCP - General Internal Medicine 10/05/24 Maureen Pantoja, ЮЛИЯ Txp Post Coordinator Transplant Hepatology 10/28/24 documented as of this encounter
--- OUTSIDE RECORDS SUMMARY | 2025-03-13 14:30 | XMS_ITS | Encounter Summary ---
Author Organization [facility] Address [address] [place] [address] Care Team Providers Care Medicaid Billing Specialist Name Role Phone Enedina Mcguire NP Primary Care Provider [phone] Maureen Pantoja RN Unavailable Unavail able Source [...] release of HIV test results or diagnoses. [id number] Reason for Visit * Reason Comments Medication Refill Encounter Details Date Type Department Care Team (Late st Contact Info) Description 02/08/2025 Refill [facility] Liver Transplant at [address] [address] Harvey Domínguez III, MD [address] [place] [phone] Social History Tobacco Use Types Packs/Day Years Used Date Smoking Tobacco: Former Cigarettes Smokeless Tobacco: Current Alcohol Use Standard Drinks/Week Comments Yes 0 (1 standard drink = 0.6 oz pure alcohol) History of alcohol abuse, reports no use in 3 week- typically endorses use as 4 glasses of wine a days Utilities Answer Date Recorded In the past 12 months has [employer], gas, oil, or water [employer] threatened to shut off services in [...] as of this encounter Care Teams Medicaid Billing Specialist Relationship Specialty Start Date End Date Enedina Mcguire NP [address] [place] [address] PCP - General Internal Medicine 10/05/24 Maureen Pantoja, ЮЛИЯ Txp Post Coordinator Transplant Hepatology 10/28/24 documented as of this encounter
--- OUTSIDE RECORDS SUMMARY | 2025-03-13 14:30 | XMS_ITS | Encounter Summary ---
Author Organization [facility] Address [address] [place] [address] Care Team Providers Care Putty Tinter Maker Name Role Phone Enedina Mcguire NP Primary Care Provider + [phone] Maureen Pantoja RN Unavailable Unavail able Source [...] release of HIV test results or diagnoses. [id number] Health Encounter Details Date Type Department Care Team (Late st Contact Info) Description 02/12/2025 Social Work [facility] Liver Transplant at [address] [place] [phone] Kaylin Willard MSW Social History Tobacco Use [...] Recorded In the past 12 months has [employer], gas, oil, or water [employer] threatened to shut off services in [...] for marijuana use and transplant. NUBIA Barros, JOB SITE SUPERVISOR Transplant Produce Buyer documented in this encounter Plan of Treatment Not on file documented as of this encounter Visit Diagnoses Not on filedocumented in this encounter Additional Health Concerns Infection Onset Date Last Indicated Resolved Time C. difficile 01/28/2025 01/28/2025 Assessment Noted Time PHQ-9 Depression Total Score: 2 12/11/19 25 9:00 AM EDT documented as of this encounter Care Teams Putty Tinter Maker Relationship Specialty Start Date End Date Enedina Mcguire NP [address] [place] [address] PCP - General Internal Medicine 10/05/24 Maureen Pantoja, RN Txp Post Coordinator Transplant Hepatology 10/28/24 documented as of this encounter
--- OUTSIDE RECORDS SUMMARY | 2025-03-13 14:30 | XMS_ITS | Encounter Summary ---
Author Organization [facility] Address [address] [place] [address] Care Team Providers Care Budget Record Clerk Name Role Phone Enedina Mcguire NP Primary Care Provider [phone] Maureen Pantoja RN Unavailable Unavail able Source [...] release of HIV test results or diagnoses. [id number] Reason for Visit * Reason Comments Results Encounter Details Date Type Department Care Team (Riky st Contact Info) Description 02/03/2025 Telephone [facility] Liver Transplant at [address] [address] Mitzy Gill MA Results Social [...] Recorded In the past 12 months has [employer], gas, oil, or water company threatened to [...] EDT Patient ended up being admitted to [facility] (01/27/25-01/30/25) after these tests were ordered but beforehe went to his local lab. Patient tested positive for C.diff at [facility] on 01/28/25. He is currently on Dificid 200 mg BID until 02/06/25. Patient tested negative for Norovirus at [facility] on 01/27/25. Patient's MMF is currently on hold. Will route results to Cop Provider for further review. * Mitzy Gill MA - 02/03/2025 3:23 PM EDT Armida from [facility] called to report critical value [...] as of this encounter Care Teams Budget Record Clerk Relationship Specialty Start Date End Date Enedina Mcguire NP [address] [place] [address] PCP - General Internal Medicine 10/05/24 Maureen Pantoja, RN Txp Post Coordinator Transplant Hepatology 10/28/24 documented as of this encounter
--- OUTSIDE RECORDS SUMMARY | 2025-03-13 14:30 | XMS_ITS | Encounter Summary ---
Author Organization [facility] Address [address] [place] [address] Care Team Providers Care Licensing Officer Name Role Phone Enedina Mcguire NP Primary Care Provider + [phone] Maureen Pantoja RN Unavailable Unavail able Source [...] release of HIV test results or diagnoses. [id number] Health Encounter Details Date Type Department Care Team (Late st Contact Info) Description 02/17/2025 Telephone [facility] Liver Transplant at [address] [address] Marlene Ro MA Social History [...] Recorded In the past 12 months has [employer], gas, oil, or water [employer] threatened to shut off services in [...] documented as of this encounter Care Teams Licensing Officer Relationship Specialty Start Date End Date Enedina Mcguire NP [address] [place] [address] PCP - General Internal Medicine 10/05/24 Maureen Pantoja, ЮЛИЯ Txp Post Coordinator Transplant Hepatology 10/28/24 documented as of this encounter
--- OUTSIDE RECORDS SUMMARY | 2025-03-13 14:30 | XMS_ITS | Encounter Summary ---
Author Organization [employer] ([place], [place], [place], [place], [place]) Address [address] [place] [address] Care Team Providers Care Air Pollution Control Engineer Name Role Phone Unavailable Primary Care Provider Unavailabl e Encounter Details Date Type Department Care Team (Late st Contact Info) Description 06/03/2018 Transcribed Document [facility] [place] [facility] [place] [address] ProviderEbenezer MD [address] [place], [place] [phone] Social History Tobacco Use Types Packs/Day Years [...] - Historical ProviderMD - 06/03/2018 3:03 PM LIME TRIMMER ED Discharge Entered On: 06/03/2018 15:03 EST Performed On: 06/03/2018 15:03 EST by Lizeth Almeida, medical laboratory specialist Process Patient Disposition : Discharge Personal [...] - 06/03/2018 15:03 EST Electronically signed by [facility] Conversion Molded Goods Embossing Press Operator [place] at 08/29/2022 6:35 PM CDT documented in this encounter Plan of Treatment Not on file documented as of this encounter Visit Diagnoses Not on filedocumented in this encounter
[2025-03-13 15:54] LABS: Magnesium 1.3 mg/dl (1.6-2.3)
== END 2025-03-13 23:59 | disposition home or self-care (01) ==
LOC: LAB 14:25
PROVIDERS: PCP Nurse Practitioner Family; Visit Provider Surgery
DX: Z94.0 Kidney transplant status (principal)
CPT/HCPCS: 36415; 83735

== ENCOUNTER 2025-03-20 07:08 | Outpatient (CLI) | payer OTHER, SELFPAY ==
--- OUTSIDE RECORDS SUMMARY | 2024-09-02 13:40 | XMS_ITS | Encounter Summary ---
Author Organization [facility] Address [address] [place] [address] Care Team Providers Care Nuclear Control Room Operator Name Role Phone Enedina Mcguire NP Primary Care Provider + [phone] Maureen Pantoja RN Unavailable Unavail able Source [...] release of HIV test results or diagnoses. [id number] Reason for Visit * Reason Comments Follow-up Bloating in PT stoma ch * Hospital Discharge Follow-Up (Routine) - Closed Specialty Diagnoses / Procedures Referred By Shane t Referred To Contact Hepatology Feliciano Freeman MD [address] [place] [address] Phone: tel: fax: Referral ID Status Reason Start Date Expiration Date Visits Re quested Visits Authorized [id number] Closed 07/29/2024 01/25/2025 1 1 Encounter Details Date Type Department Care Team (Latest Contact Info) Description 09/02/2024 2:40 PM EDT Office Visit [facility] G[facility] at [place] [facility] [address] [facility] [address] [place] [phone] Gerri Peterson MD [address] [place] [address] Cirrhosis of liver with ascites, [...] the past 12 months has th e [employer], [employer], oil, or water [employer] threatened to shut off services in your [...] any time in the past 12 m [facility], were you homeless or living in a long-term (including now)? No 01/28/2025 Yearly Questionnaire Answer [...] Audit-C Score Answer Date of Assessment Author 6 01/28/2025 12:00 AM EDT Marixa Mock RN * Question Answer Date of Assessment Author Q1: How often do you have a drink containing alcohol? 2-3 times a week 01/28/2025 12:00 AM SANTOT Marixa Mock RN Q2: How many drinks containing alcohol do you have on a typical day when you are drinking? 1 or 2 01/28/2025 12:00 AM SANTOT Ginette Mock RN Q3: How often do you have six or more drinks on one occasion? Weekly 01/28/2025 12:00 AM Marixa Dowd RN * PCL-5: In the past month, [...] there reliving it)? 2 09/29/2024 11:00 AM Lizeth Scales PsyD Feeling very upset when some thing [...] used to enjoy? 3 09/29/2024 11:00 AM EDT Lizeth Warren Psy D Feeling distant or cut off f rom other people? 4 09/29/2024 11:00 AM EDT Lizeth Warren Psy D Trouble experiencing positiv e feelings (for example, being unable to feel happiness or have loving feelings for people close to you)? 3 09/29/2024 11:00 AM EDT R ockLizeth PsyD Taking too many risks or doi ng things that could cause you harm? 0 09/29/2024 11:00 AM EDT Ro ckLizeth PsyD Trouble falling or staying asleep? 4 2024 11:00 AM EDT Lizeth Warren PsyD Irritable behavior, angry ou tbursts, or acting aggressively? 3 09/29/2024 11:00 AM EDT Lizeth Warren PsyD Having difficulty concentrating? 3 09/30/19 25 11:00 AM EDT Lizeth Warren PsyD Being superalert or watchf ul or [...] Peterson MD - 09/02/2024 2:40 PM EDT [facility] NOTE Chief complaint: Post hospital [...] worsening ascites and had therapeutic paracentesis at [facility] with about a week prior to this [...] will prefer to have LVP done at [facility]. Will print out paper order for LVP. [...] up as scheduled #Obtain MELD labs and PET RTC in 3 months Patient seen and [...] Chris Orosco MD, MPH Transplant hepatology Pager: [phone] documented in this encounter Plan of Treatment Not on file documented as of this encounter Results * (ABNORMAL) CBC (09/02/2024 5:00 PM EDT) WBC 10.4 3.8 - 10.8 10E3/uL 09/02/2024 7:42 PM EDT [facility] RBC 3.13(L) 4.20 - 5.80 10E6/uL 09/02/2024 7:42 PM EDT [facility] Hemoglobin 11.1(L) 13.2 - 17.1 g/dL 09/02/2024 7:42 PM EDT [facility] Hematocrit 30.7(L) 38.5 - 50.0 % 09/02/2024 7:42 PM EDT [facility] MCV 97.9 80.0 - 100.0 fL 09/02/2024 7:42 PM EDT [facility] MCH 35.3(H) 27.0 - 33.0 pg 09/02/2024 7:42 PM EDT [facility] MCHC 36.1(H) 32.0 - 36.0 g/dL 09/02/2024 7:42 PM EDT [facility] RDW 22.7(H) 11.0 - 15.0 % 09/02/2024 7:42 PM EDT [facility] Platelets 73(L) 140 - 400 10E3/uL 09/02/2024 7:42 PM EDT [facility] MPV 9.4 7.5 - 11.5 fL 09/02/2024 7:42 PM EDT [facility] Whole Blood 09/02/2024 5:00 PM EDT 09/02/2024 7:34 PM EDT us Gerri Peterson MD LAB BLOOD ORDERABLES Final Resu lt [facility] [address] documented in this encounter Visit Diagnoses Diagnosis [...] documented as of this encounter Care Teams Nuclear Control Room Operator Relationship Specialty Start Date End Date Enedina Mcguire NP [address] [place] [address] PCP - General Internal Medicine 10/05/24 Maureen Pantoja, RN Txp Post Coordinator Transplant Hepatology 10/28/24 documented as of this encounter
--- OUTSIDE RECORDS SUMMARY | 2025-01-06 07:20 | XMS_ITS | Encounter Summary ---
Author Organization [facility] Address [address] [place] [address] Care Team Providers Care Blanchard Grinder Operator Name Role Phone Enedina Mcguire NP Primary Care Provider + [phone] Maureen Pantoja RN Unavailable Unavail able Source [...] release of HIV test results or diagnoses. [id number] Reason for Visit * Reason Comments Liver Transplant Follow-up Encounter Details Date Type Department Care Team (Late st Contact Info) Description 01/06/2025 8:20 AM EDT Office Visit [facility] Liver Transplant at [address] [address] Cosmo Pacheco MD [address] [place] [address] Liver/[place] [address] Mahad Alonzo MD [facility] [place] [address] S/P liver transplant (CMS-HCC) (Primary Dx); Immunosuppression (CMS-HCC); Kidney transplant recipient; Alcohol use disorder Social History Tobacco Use [...] the past 12 months has th e [employer], gas, oil, or water company threatened to [...] Sign Reading Time Taken Comments Blood Pressure 143/92 01/06/2025 8:26 AM EDT Pulse 93 01/06/2025 8:26 AM EDT Temperature - - Respiratory Rate 16 01/06/2025 8:26 AM EDT Oxygen Saturation 100% 01/06/2025 8:26 AM EDT Inhaled Oxygen Concentration 100% 01/06/2025 8 :26 AM EDT Weight 101.2 kg (223 lb) 01/06/2025 8:26 AM EDT Height 193 cm (6' 4 ) 01/06/2025 8:26 AM EDT Body Mass Index 27.14 01/06/2025 8:26 AM EDT documented in this encounter Patient Instructions * Patient Instructions* Mahad Alonzo MD - 01/06/2025 8:20 AM EDT - Decrease prednisone to 5mg - Change robaxin to 500mg oral twice daily as needed - Continue with weekly labs - Continue to work with alcohol relapse prevention - Follow up in 1 month documented in this encounter Progress Notes * Calista E Baig, PharmD - 01/06/2025 8:20 AM EDT Transplant Pharmacist Assessment and Recommendations: Current Outpatient Medications Medication Sig acetaminophen (TYLENOL) 325 MG tablet Take 3 tablets (975 mg total) by mouth every 8 hours. (Patient taking differently: Take 2 tablets (650 mg total) by mouth every 8 hours as needed for Pain.) ergocalciferol (ERGOCALCIFEROL) 1,250 mcg (50,000 unit) capsule [...] total) by mouth 3 times a day. (Patient taking differently: Take 1 capsule (100 mg total) by mouth 2 times a day.) levothyroxine (SYNTHROID) 75 MCG tablet Take 1 tablet (75 mcg total) by mouth every morning before breakfast. loratadine (CLARITIN) 10 mg tablet Take 1 tablet (10 mg total) by mouth daily as needed for Allergies (itching). magnesium chloride (SLOW MAG) 71.5 mg TbEC Take 2 tablets (143 mg total) by mouth 3 times a day. Indications: hypomagnesemia (Patient taking differently: Take 2 tablets (143 mg total) by mouth in themorning and at bedtime. Indications: hypomagnesemia) methocarbamoL (ROBAXIN) 500 MG tablet Take 2 tablets (1,000 mg total) by mouth in the morning and at bedtime. mycophenolate (CELLCEPT) 250 mg capsule Take 2 capsules (500 mg total) by mouth 2 times a day. NIFEdipine (PROCARDIA-XL) 30 MG (OSM) 24 hr tablet Take 1 tablet by mouth once daily predniSONE (DELTASONE) 5 MG tablet Take 1.5 tablets (7.5 mg total) by mouth daily. sulfamethoxazole-trimethoprim (BACTRIM) 400-80 mg per tablet Take 1 tablet by mouth daily. tacrolimus (PROGRAF) 1 MG capsule Take 5 capsules (5 mg total) by mouth every morning AND 6 capsules (6 mg total) every evening. Use as directed. Indications: Prevention of Kidney Transplant Rejection, Prevention of Liver Transplant Rejection. valGANciclovir (VALCYTE) 450 mg tablet Take 2 tablets (900 mg total) by mouth daily. naltrexone (DEPADE) 50 mg tablet Take 1 tablet (50 mg total) by mouth daily. (Patient not taking: Reported on 01/06/2025) No current facility-administered medications for this visit. OLT Indication: ALD Immunosuppression: STANDARD SLKT - POD #72 Perioperative immunosuppression regimen included: steroid taper, tacrolimus and Mycophenolate Mofetil. Currently on tacrolimus 5mg AM and 6mg PM, mycophenolate 500mg BID, and prednisone 7.5mg (since 12/19/24). Administers medications at: 9 am/pm Goal Tacrolimus level per protocol is 8-10 ng/mL. Donor: n/a Rejection History: none Prophylaxis: VTE (Caprini score 10): apixiban 2.5mg bid: 30 days per protocol: Discontinue: 11/25/24. COMPLETED Fungal (Fluconazole): 1 month per protocol. Discontinue: 11/25/24. COMPLETED PCP (Bactrim): 3 months per protocol. Discontinue: 01/26/25 Viral (Valcyte 450mg daily): 3 months per protocol (D-/R+). Discontinue: 01/26/25 Zyvox: initiated on 11/02/24 for urine culture with VRE. Patient discharged with 14 day supply. COMPLETED. Blood Sugars: NOT diabetic prior to transplant0 Discharged on correction insulin and with home monitoring. Continue to monitor 01/06/25: no longer monitoring 11/11/24: reviewed; readings range: AM: 102-133, lunch: 140-181, dinner: 159-200, bedtime: 142-190. On correction (Prednisone 20mg daily) Blood pressure: ON Therapy BP: 143/92 mmHg, pulse 93 in clinic today. Continue to monitor. Other: Pain (Category B): reports pain is controlled. Discharged on acetaminophen 975mg every 8 hours, gabapentin 100mg tid, methocarbamol 1000mg tid and dilaudid (per provider as pain not controlled duringadmission with oxycodone). Reports taking dilaudid ~3 times today. Vitamin D: weekly supplement; assess with 90 day labs Peth Monitoring (POD 30): 14 (11/25/24); naltrexone prescribed - reports took ~1 week but stopped asdoesn't like the way it makes him feel. Reports ongoing alcohol use; daily wine. SW to see today. Adherence: Patient reports missing 0 doses in the past 7 days The following barriers to adherence have been identified: none It is my assessment that the patient demonstrates satisfactory adherence and medication understanding. medications/dosages from card with me while in clinic. Recommendations: Tacrolimus: level PENDING ng/ml (01/05/25) on 5mg AM and 6mg PM since 12/22/24 Prednisone: decrease 5mg daily Peth = 14 (11/25/24) Pain: continue to monitor and taper therapies as indicated Renal: continue to monitor and adjust medications as indicated (improving) * Mahad Alonzo MD - 01/06/2025 8:20 AM EDT Transplant Hepatology Follow Up HPI: [...] Path : negative for malignancy Interval history: Patient feeling well. Denies any abdominal pain. Passing gas and stool. No nausea or vomiting, goodappetite. The patient says he has had loose stool for the past 4 days, but no associated sick contacts or abdominal discomfort. No melena, no bright red blood per rectum. He taking tylenol as needed a few times per week, but continues on the regula robaxin and gabapentin. The patient admitted to me that he has had ongoing urges to drink, and has had daily consumption ofwine, 1-2 glasses. He has been working with a therapist on a weekly basis and has started alcohol relapse prevention with AA. Patient tried naltrexone x1 week a month ago, but has since stopped. The patient is known for chronic neck pain due to a fracture and subsequent fusion when he was a teenager. He is followed by a pain team and has a plan for a cervical block at 2 levels in the next 2-3 weeks. I supported him in this. ROS: The following portions of the patient history were reviewed and updated as appropriate: allergies, current medications, family, medical, surgical and social history and problem list. Review of systems performed. See RAFFI ROS review. Past Medical History: Past Medical [...] 218 lb (98.9 kg) General: looks well Abdomen:Soft, ND, NT, well healed surgical scar Neuro: Awake, alert, oriented x 3, no [...] BLOOD 9.9 Radiology: Assessment and Plan: 39yo, POD#71-72 from [facility] for ETOH cirrhosis and HRS. Post operative complications as noted above. - Graft function: good liver and renal allograft function - Immune suppression: most recent tacro level 7.5 . On tacrolimus 5mg/6mg. Continue Cellcept 500 mgBID. On prednisone 7.5mg daily, plan to continue taper to 5mg daily. Will follow up labs and plan to continue prednisone taper - HCC surveillance: Patient is categorized as low risk for HCC recurrence - HCV/HBV : donor acute risk, KIANA negative - ID prophylaxis/surveillance: - CMV R+, on 3 months valcyte - 01/26/25 will need 6 months PJP prophon Bactrim SS daily until 01/26/25. Fluconazole - 1 month- completed - CV: h/o HTN on nifedipime 30 daily. Off torsemide last visit. - Wound: no issues - DVT px: completed 30 days eliquis - Psychosocial: Patient w/ h/o alcohol abuse, with new issues of alcohol use post transplant. Continue serial Peths and counselling. Patient to take naltrexone 50 mg oral daily. - Pain: pervious high narcotic requirement. Discharged on 2 mg dilaudid q6h. Off opioids. Taking tylenol PRN, continue with gabapentin due to history of chronic neck pain, change robaxin to twice daily PRN - Nutrition: patient continues close f/u w/ transplant separator tender. - Bone health: Vit D level to be drawn ~POD#90. - Labs: Labs (CBC w/ diff, renal panel, liver panel, tacro level) weekly. Lipid panel, HgbA1C and Vit D level to be drawn at POD#90, HgbA1C and Vit D level to be drawn at POD#180. - Follow up: RTC 1 month Mahad Alonzo MD Transplant Surgery [phone] [1] Allergies Allergen Reactions Adhesive Itching and Rash Tegaderm adhesive on Ivs, pt states its tolerable Duloxetine Other (See Comments) Became Manic * Isha Morocho RN - 01/06/2025 8:20 AM EDT After visit summary including patient instructions reviewed with patient. Labs weekly. Follow up in4 weeks. Decrease prednisone to 5 mg daily. Patient reports recidivism of alcohol use, endorsing daily consumption. Encouraged patient to resume naltrexone, patient states he only took it for a week.Currently seeing weekly therapist, SW met with patient and recommended increasing visits to twice aweek and to follow up with CD treatment. SW will continue to follow closely. Checked with patient to see if prescription refills and/or lab orders were needed. Updated preferred pharmacy and preferred lab information in patient demographics. Care coordinated with other team members and other medical providers as needed. 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
--- OUTSIDE RECORDS SUMMARY | 2025-01-27 17:28 | XMS_ITS | Encounter Summary ---
Author Organization [facility] Address [facility] [place] [address] Care Team Providers Care Studio Manager Name Role Phone Enedina Mcguire NP Primary Care Provider + [phone] Maureen Pantoja RN Unavailable Unavail able Source [...] release of HIV test results or diagnoses. [id number] Reason for Visit * Reason Comments Fever Immunocompromised 99F x1 day ago Diarrhea Headache * Auth/Cert (Routine) Specialty Diagnoses / Procedures Referred By Contac t Referred To Contact Transplant Diagnoses Diarrhea of presumed infectious origin [address] [place] [address] Phone: tel: Referral ID Status Reason Start Date Expiration Date Visits Re quested Visits Authorized [id number] 1 1 Encounter Details Date Type Department Care Team (Latest Contact Info) Description 01/27/2025 6:28 PM EDT - 01/30/2025 2:25 PM EDT Hospital Encounter [address] [place] [address] Sunny Wei MD [phone] [address] Lydia Sanchez MD [phone] [facility] [place] [address] Diarrhea of presumed infectious origin (Primary Dx); Immunosuppression ([facility]) Discharge Disposition: Home or Self Care WITHOUT [...] the past 12 months has th e [employer] gas, oil, or water [employer] threatened to shut off services in your [...] Sign Reading Time Taken Comments Blood Pressure 137/84 01/30/2025 8:35 AM EDT Pulse 70 01/30/2025 8:35 AM EDT Temperature 36.4 C (97.6 F) 01/30/2025 8:35 AM EDT Respiratory Rate 17 01/30/2025 8:35 AM EDT Oxygen Saturation 100% 01/30/2025 8:35 AM EDT Inhaled Oxygen Concentration 100% 01/30/2025 8 :35 AM EDT Weight 101.2 kg (223 lb 3.2 oz) 025 11:58 PM EDT Height 193 cm (6' 4 ) 01/27/2025 11:58 PM EDT Body Mass Index 27.17 01/27/2025 11:58 PM EDT documented in this encounter Functional Status * Audit-C Score Answer Date of Assessment Author 6 01/28/2025 12:00 AM EDT Marixa Mock RN * Question Answer Date of Assessment Author Q1: How often do you have a drink containing alcohol? 2-3 times a week 01/28/2025 12:00 AM EDT Desalew, Marixa, RN Q2: How many drinks containing alcohol do you have on a typical day when you are drinking? 1 or 2 01/28/2025 12:00 AM EDT Ginette Mock RN Q3: How often do you have six or more drinks on one occasion? Weekly 01/28/2025 12:00 AM EDT Marixa Mock RN documented as of this encounter Discharge Summaries * NUBIA Tian LSW - 01/30/2025 1:04 PM EDT [facility] Care Management Discharge Summary Patient name: Julien Gilbert Patient : 1985 Age: 39 y.o. Gender: male Patient emergency contact: Extended Emergency Contact Information Primary Emergency Contact: JustinIna (next of kin) Mobile Relation: Spouse Secondary Emergency Contact: brown gilbert Mobile Relation: Brother Attending provider: Lydia Sanchez MD Primary care physician: Enedina Mcguire NP The MD has indicated that the patient is ready for discharge. Transfer Mode/Level of Care: Family The plan has been reviewed: Patient/Family Informed of Discharge Plan: Yes Plan Reviewed With Patient, Family, or Significant Other: Yes Patient and or family are aware and in agreement with the discharge plan: Yes Family Member Name and Relationship Notified at Discharge: Abdiaziz Gilbert- Family Contact Number: [phone] Plan reviewed with MD and other members of the health care team: Yes Care Plan Completed: Yes No further CM/SW needs. This plan has been reviewed with the multi-disciplinary team. Treatment Preferences Treatment Preferences: Distance Post-Discharge Goals Patient's Post-Discharge goals: Get stronger at home. Post Acute Care Provider Information: Community Services at Discharge Community Services at Home post discharge: Not Applicable RONALDO Garner [phone] * Feliciano Gomez CNP - 01/30/2025 8:39 AM EDT [facility] Inpatient Discharge Summary Patient: Julien Gilbert Age: 39 y.o. [facility]: [id number] Date of Admission: 01/27/2025 Date of Discharge: 01/30/2025 Attending Physician: Lydia Sanchez MD Primary Care Physician: Enedina Mcguire NP Diagnoses Present on Admission Past Medical History: Diagnosis Date Alcoholic cirrhosis of liver (CMS-HCC) Esophageal varices ([facility]) Hepatorenal syndrome ([facility]) Hypertension Other hyperlipidemia 07/26/2024 Renal cell carcinoma ([facility]) Thrombocytopenia ([facility]) Thyroid disease Discharge Diagnoses There are no hospital problems to display for this patient. Operations/Procedures Performed (include dates) Surgeries: Lines and tubes: Patient Lines/Drains/Airways Status Active LDAs Name Placement date Placement time Site Days Anesthesia Airway Device 10/10/24 1139 -- 111 Anesthesia Airway Device 10/25/24 2304 -- 96 Other Procedures / Pertinent Imaging: CT Neck With IV contrast Final Result IMPRESSION: 1. No acute findings in the neck. No evidence for abscess. 2. Status post ACDF of C3-C6 with corpectomy at C4-C5. Report Verified by: Mariam Church MD at 01/29/2025 2:[address] Head WO contrast Final Result IMPRESSION: 1. No intracranial mass effect or hemorrhage. 2. No acute intracranial abnormality. Approved by Joanne Landry MD on 01/28/2025 1:21 AM EDT I have personally reviewed the images and I agree with this report. Report Verified by: Cody Benz MD at 01/28/2025 1:39 AM EDT X-ray Chest PA and Lateral Final Result IMPRESSION: No acute cardiopulmonary abnormality. Report Verified by: Jean English MD at 01/27/2025 7:13 PM EDT Consulting Services (include reason) Transplant ID Allergies Allergies[1] Discharge Medications Medication List PAUSE taking these medications Quantity/Refills mycophenolate 250 mg capsule Wait to take this until your doctor or other care provider tells you to start again. Commonly known as: CELLCEPT Take 2 capsules (500 mg total) by mouth 2 times a day. Quantity: 120 capsule Refills: 5 TAKE these medications, which are NEW Quantity/Refills cyclobenzaprine 5 MG tablet Commonly known as: FLEXERIL Take 1 tablet (5 mg total) by mouth 3 times a day. Quantity: 90 tablet Refills: 0 fidaxomicin 200 mg Tab tablet Commonly known as: DIFICID Take 1 tablet (200 mg total) by mouth 2 times a day for 8 days. Quantity: 16 tablet Refills: 0 lidocaine 5 % Commonly known as: LIDODERM Place 1 patch onto the skin daily. Apply patch for 12 hours and then remove patch and leave off for12 hours. Start taking on: January 31, 2025 Quantity: 30 patch Refills: 0 TAKE these medication, which have CHANGED Quantity/Refills acetaminophen 325 MG tablet Commonly known as: TYLENOL Take 3 tablets (975 mg total) by mouth every 8 hours as needed What changed: when to take this reasons to take this Quantity: 100 tablet Refills: 0 magnesium chloride 71.5 mg Tbec Commonly known as: SLOW MAG Take 2 tablets (143 mg total) by mouth 3 times a day. Indications: hypomagnesemia What changed: when to take this Quantity: 180 tablet For: hypomagnesemia Refills: 2 methocarbamoL 500 MG tablet Commonly known as: ROBAXIN Take 2 tablets (1,000 mg total) by mouth 3 times a day. What changed: when to take this reasons to take this Quantity: 120 tablet Refills: 0 predniSONE 5 MG tablet Commonly known as: DELTASONE Take 2 tablets (10 mg total) by mouth daily. What changed: how much to take Quantity: 60 tablet Refills: 0 TAKE these medications, which you were ALREADY TAKING Quantity/Refills ergocalciferol 1,250 mcg (50,000 unit) capsule Commonly known as: ERGOCALCIFEROL Take 1 capsule (50,000 Units total) by mouth once a week. Quantity: 4 capsule Refills: 2 famotidine 20 MG tablet Commonly known as: Pepcid Take 1 tablet (20 mg total) by mouth 2 times a day. Quantity: 60 tablet Refills: 2 FLUoxetine 20 MG capsule Commonly known as: PROZAC Take 1 capsule (20 mg total) by mouth daily. Quantity: 30 capsule Refills: 2 gabapentin 100 MG capsule Commonly known as: NEURONTIN Take 1 capsule (100 mg total) by mouth 2 times a day. Work on decreasing to one capsule daily. Quantity: 60 capsule Refills: 0 levothyroxine 75 MCG tablet Commonly known as: SYNTHROID Take 1 tablet (75 mcg total) by mouth every morning before breakfast. Refills: 0 loratadine 10 mg tablet Commonly known as: CLARITIN Take 1 tablet (10 mg total) by mouth daily as needed for Allergies (itching). Quantity: 30 tablet Refills: 0 naltrexone 50 mg tablet Commonly known as: DEPADE Take 1 tablet (50 mg total) by mouth daily. Quantity: 30 tablet Refills: 5 NIFEdipine 30 MG (OSM) 24 hr tablet Commonly known as: PROCARDIA-XL Take 1 tablet by mouth once daily Quantity: 30 tablet Refills: 2 tacrolimus 1 MG capsule Commonly known as: PROGRAF Take 5 capsules (5 mg total) by mouth every morning AND 6 capsules (6 mg total) every evening. Use as directed. Indications: Prevention of Kidney Transplant Rejection, Prevention of Liver Transplant Rejection. Quantity: 330 capsule For: Prevention of Kidney Transplant Rejection, Prevention of Liver Transplant Rejection Refills: 5 Where to Get Your Medications These medications were sent to [facility] [address] [place] [id number] Hours: Sunday - Sunday: 8:00AM - 6:00PM acetaminophen 325 MG tablet cyclobenzaprine 5 MG tablet fidaxomicin 200 mg Tab tablet lidocaine 5 % methocarbamoL 500 MG tablet predniSONE 5 MG tablet Discharge Exam Physical Exam Vitals and nursing note reviewed. Constitutional: General: He is not in acute distress. HENT: Head: Normocephalic. Nose: Nose normal. Mouth/Throat: Mouth: Mucous membranes are moist. Pharynx: Oropharynx is clear. Eyes: Pupils: Pupils are equal, round, and reactive to light. Cardiovascular: Rate and Rhythm: Normal rate and regular rhythm. Pulmonary: Effort: Pulmonary effort is normal. No respiratory distress. Abdominal: General: Bowel sounds are normal. There is no distension. Palpations: Abdomen is soft. Musculoskeletal: General: Normal range of motion. Cervical back: Normal range of motion. Skin: General: Skin is warm. Capillary Refill: Capillary refill takes less than 2 seconds. Neurological: General: No focal deficit present. Mental Status: He is alert. Psychiatric: Mood and Affect: Mood normal. Reason for Admission Julien Gilbert is a 39 y.o. male with past medical history of hepatic encephalopathy, ascites, varices, and hepato-renal syndrome who underwent OLT on 10/25/2024 and DDKT on 10/27/2024 admitted for diarrhea, acute on chronic neck pain, and right sided-headaches. Hospital Course There are no hospital problems to display for this patient. 01/27 the patient was admitted 2/2 reported fever at home Tmax 99, acute on chronic neck pain, rightsided headache, and diarrhea. Infectious work-up initiated w/ ID consult. Enteric pathogen panel was negative. C diff (+). VRP negative. BC/UC NGTD. ID consulted. Plan for x 10 day course of dificid.Diarrhea subsided and patient was tolerating PO solids and liquids. No fevers during inpatient stay. Admitted to continue alcohol use at home. Peth was 446. Patient previously on naltrexone but stopped 2/2 opioid use w/ neck pain. Outpatient appointment for neck injections. Patient reports wanting to start back on the naltrexone then if pain is controlled. Will follow up outpatient in liver clinic . Hold MMF until cleared by clinic. Prednisone 10mg daily upon DC. Tacro 5/6mg split daily dosing. Discharged home. Condition on Discharge 1. Functional Status: normal [...] Select Supplement: Boost Max - High Protein As listed above 4. Discharge specific orders: None required 5. Core measures followed: (if this is a core measure patient) Discharge Weight: (!) 223 lb 3.2 oz (101.2 kg) Disposition Home independent Follow-Up Appointments Future Appointments Date Time Provider Department Center 02/12/2025 10:50 AM Chris Orosco MD [facility] 02/25/2025 10:50 AM Bruno Gonzalez MD [facility] No follow-up provider specified. Signed: Feliciano Gomez CNP 01/30/2025, 11:22 AM [1] Allergies Allergen Reactions Adhesive Itching and Rash Tegaderm adhesive on Ivs, pt states its tolerable Duloxetine Other (See Comments) Became Manic Cosigned by Lydia Sanchez MD at 01/30/2025 9:41 PM EDT Associated attestation - Lydia Sanchez MD - 01/30/2025 9:41 PM EDT This patient was seen and examined by the [facility]/Resident team on 01/30/25. I have discussed the patient's care with the team. Immunosuppression reviewed and discussed with multidisciplinary team. I have personally seen and examined this patient on 01/30/25. AFVSS Pain well controlled Liver allograft function excellent Cr improved Diarrhea improved C diff treatment HSQ IS: tacro, pred. Mmf on hold After neck steroid injecton, will resume naloxone for etoh cravings Lydia Sanchez MD PhD Transplant Surgery documented in this encounter Discharge Instructions * Discharge Instructions* Feliciano Gomez CNP - 01/28/2025 8:39 AM EDT Activity: As tolerated. Get out of bed and walk frequently. You should be off all narcotic pain medications prior to driving. Diet: Regular diet diet Medications: Please take sure that your immunosuppression medications are taken as directed by the medical staff(ie, timing is very important). Please discuss any new medications with the transplant team prior to starting. Please do not take Prograf prior to coming to appointment (but bring with you to take after labs drawn). Other Instructions: Call post-kidney transplant clinic with questions [phone] or call [facility] at [phone] and ask for the kidney volunteer coordinator steward/stewardess second class if you experience any of the following: - Worsening pain, nausea, or vomiting not reieved by medications - Temperature greater than 100.4 F or fever/chills - Redness around incision, drainage from incision, or wound edge separation - Chest pain, shortness of breath, persistent dizziness, swelling in one or both legs * Attachments The following attachments cannot be sent through Care Everywhere. * C. Diff Infection [id number] (Albanian) documented in this encounter Medications at Time of Discharge cyclobenzaprine (FLEXERIL) 5 MG tablet Take 1 tablet (5 mg total) by mouth 3 times a day. 90 tablet 01/30/2025 11:36 AM EDT 5 ergocalciferol (ERGOCALCIFEROL) 1,250 mcg (50,000 unit) capsuleIndications:E ncounter for therapeutic drug monitoring,S/P liver transplant ([facility]),Hypomagnes emia,Kidney transplant recipient,Hypertensi on, unspecified type,Gastroesophagea l reflux disease, unspecified whether esophagitis present Take 1 capsule (50,000 Units total) by mouth once a week. 4 capsule 2 5 levothyroxine (SYNTHROID) 75 MCG tablet Take 1 tablet (75 mcg total) by mouth every morning before breakfast. loratadine (CLARITIN) 10 mg tablet Take 1 tablet (10 mg total) by mouth daily as needed for Allergies (itching). 30 tablet 10/17/2024 10:24 AM EDT 5 methocarbamoL (ROBAXIN) 500 MG tablet Take 2 tablets (1,000 mg total) by mouth 3 times a day. 120 tablet 01/30/2025 11:36 AM EDT 5 naltrexone (DEPADE) 50 mg tablet Take 1 tablet (50 mg total) by mouth daily. 30 tablet 5 5 testosterone cypionate 200 mg/mL Kit Inject into the muscle. 1 acetaminophen (TYLENOL) 325 MG tablet Take 3 tablets (975 mg total) by mouth every 8 hours as needed 100 tablet 5 03/01/20 25 magnesium chloride (SLOW MAG) 71.5 mg TbECIndications:hypo magnesemia Take 2 tablets (143 mg total) by mouth 3 times a day. Indications: hypomagnesemia 180 tablet 2 5 02/13/20 25 famotidine (PEPCID) 20 MG tabletIndications:En counter for therapeutic drug monitoring,S/P liver transplant (CMS-HCC),Hypomagnes emia,Kidney transplant recipient,Hypertensi on, unspecified type,Gastroesophagea l reflux disease, unspecified whether esophagitis present Take 1 tablet (20 mg total) by mouth 2 times a day. 60 tablet 2 5 02/27/20 25 fidaxomicin (DIFICID) 200 mg Tab tablet Take 1 tablet (200 mg total) by mouth 2 times a day for 8 days. 16 tablet 01/30/2025 11:36 AM EDT 5 02/13/20 25 FLUoxetine (PROZAC) 20 MG capsule Take 1 capsule (20 mg total) by mouth daily. 30 capsule 2 5 02/10/20 25 gabapentin (NEURONTIN) 100 MG capsuleIndications:E ncounter for therapeutic drug monitoring,S/P liver transplant ([facility]),Hypomagnes emia,Kidney transplant recipient,Hypertensi on, unspecified type,Gastroesophagea l reflux disease, unspecified whether esophagitis present Take 1 capsule (100 mg total) by mouth 2 times a day. Work on decreasing to one capsule daily. 60 capsule 5 02/13/20 25 lidocaine (LIDODERM) 5 % Place 1 patch onto the skin daily. Apply patch for 12 hours and then remove patch and leave off for 12 hours. 30 patch 01/30/2025 11:36 AM EDT 5 02/13/20 25 mycophenolate (CELLCEPT) 250 mg capsuleIndications:E ncounter for therapeutic drug monitoring,S/P liver transplant ([facility]),Hypomagnes emia,Kidney transplant recipient,Hypertensi on, unspecified type,Gastroesophagea l reflux disease, unspecified whether esophagitis present Take 2 capsules (500 mg total) by mouth 2 times a day. 120 capsule 5 5 02/27/20 25 NIFEdipine (PROCARDIA-XL) 30 MG (OSM) 24 hr tabletIndications:En counter for therapeutic drug monitoring,S/P liver transplant ([facility]),Hypomagnes emia,Kidney transplant recipient,Hypertensi on, unspecified type,Gastroesophagea l reflux disease, unspecified whether esophagitis present Take 1 tablet by mouth once daily 30 tablet 2 5 03/12/20 predniSONE (DELTASONE) 5 MG tablet Take 2 tablets (10 mg total) by mouth daily. 60 tablet 03/10/20 tacrolimus (PROGRAF) 1 MG capsuleIndications:P revention of Kidney Transplant Rejection,Prevention of Liver Transplant Rejection Take 5 capsules (5 mg total) by mouth every morning AND 6 capsules (6 mg total) every evening. Use as directed. Indications: Prevention of Kidney Transplant Rejection, Prevention of Liver Transplant Rejection. 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 No sore throat. Low grade fevers. Diarrhea: resolved - No known sick contacts. - RVP and enteric panel Negative. - C dif PCR positive, Toxin Ag negative - CMV PCR negative - urine Histo/blast ag pending - Agree to complete 10-day course with Fidaxomicin 200 mg BID. Neck Pain: improving Follow up on CT neck to evaluate for underlying infectious/non-infectious pathology for neck pain. As an infectious diseases specialist, I have seen this patient with a confirmed or suspected infection and discussed disease transmission risk assessment and mitigation, conducted public health investigation, analysis, and testing, and/or addressed complex antimicrobial therapy counseling and treatment with this patient/family. Please page [phone] with any additional questions or concerns. Thank you for the consult. Interval History: Feels better. No BM today. Neck pain has improved. Review of Systems: Positives appear in bold; otherwise listed symptoms are negative. General: fever, chills Cardio: chest pain, palpitations Pulm: cough, shortness of breath GI: nausea, diarrhea : Dysuria Skin: rash, itching Physical Exam: BP 125/83 (BP Location: Left upper arm, Patient Position: Lying) Pulse 68 Temp 97.3 ??F (36.3 ??C) (Oral) Resp 16 Ht 6' 4 (1.93 m) Wt (!) 223 lb 3.2 oz (101.2 kg) SpO2 99% BMI 27.17 kg/m?? Gen: Awake and alert. No acute distress HEENT: NCAT. Sclera white, EOMI Neck: Supple. No lymphadenopathy. Resp: Bilateral air entry present. Abd: BS+. Soft. Non-distended. Skin: No obvious lesions or rashes. No sacral ulcers. Neuro: Alert oriented x3. Spontaneous movement present in all four extremities. Current Meds: Current Facility-Administered Medications Medication acetaminophen (TYLENOL) tablet 975 mg cyclobenzaprine (FLEXERIL) tablet 5 mg famotidine (PEPCID) tablet 20 mg fidaxomicin (DIFICID) tablet 200 mg FLUoxetine (PROZAC) capsule 20 mg gabapentin (NEURONTIN) capsule 100 mg heparin (porcine) injection 5,000 Units levothyroxine (SYNTHROID) tablet 75 mcg lidocaine (LIDODERM) 5 % 1 patch methocarbamoL (ROBAXIN) tablet 1,000 mg [Held by provider] mycophenolate (CELLCEPT) capsule 500 mg naltrexone (DEPADE) tablet 50 mg NIFEdipine (PROCARDIA-XL) 24 hr tablet 30 mg predniSONE (DELTASONE) tablet 5 mg [Held by provider] tacrolimus (PROGRAF) capsule 5 mg And [Held by provider] tacrolimus (PROGRAF) capsule 6 mg Labs: CBC 01/29/2025 \ 12.8 / 2.4 \ / 119 / \ / 36.6 \ Differential 01/27/2025 N 50.9 L 39.0 M 7.3 E 1.3 B 1.5 Renal 01/29/2025 138 102 23 / ___ __ / 108 \ 3.9 27 1.39 \ Ca 9.6 (01/29) Mg 2.5 (01/29) Phos 5.6* (01/29) LFTs 01/29/2025 \ 0.5 / \ 0. \ / / 59 \ Lipids 10/07/2024 Value TChol <25 (10/07) Trig 30 (10/07) LDL 4* (10/07) HDL See Note (10/07) PT/INR/PTT - 12/23/2024 PT 10.5 (12/23) INR 0.94 (12/23) PTT 41.7* (10/25) Signed: Bisi Gonzalez MD 01/29/2025 9:15 AM Pager: [phone] * Feliciano Gomez CNP - 01/29/2025 8:12 AM EDT Transplant Surgery Progress Note Patient: Julien Gilbert Admit Date: 01/27/2025 Transplant date: OLT on 10/25/2024 SUBJECTIVE Doing okay this morning. Pain controlled. Continued diarrhea. C diff (+). Started on Dificid. Awaiting CT neck w/ contrast to be completed. Otherwise, tolerating PO w/out N/V. OBJECTIVE Vitals: Temp: [97.3 ??F (36.3 ??C)-98.4 ??F (36.9 ??C)] 97.3 ??F (36.3 ??C) Heart Rate: [68-85] 68 Resp: [16-17] 16 BP: (100-147)/(80-90) 125/83 I/O last 3 completed shifts: In: 700 [P.O.:700] Out: 50 [Stool:50] Physical Exam: Gen: NAD, awake Neuro: Aox3, non-focal CV: RRR, normo-tensive Resp: no respiratory distress Abd: Soft, NT/ND Ext: Wwp : Voids spontaneously Labs: Recent Labs 01/27/25201901/28/25 0714 01/29/25 0555 WBC 2.0* 2.0* 2.4* HGB 12.7* 11.5* 12.8* PLT 109* 86* 119* Recent Labs 01/27/25201901/28/25 0714 01/29/25 0555 NA 136 138 138 K 4.0 3.7 3.9 CL 100 102 102 CO2 25 26 27 BUN 16 17 23 CREATININE 1.02 1.14 1.39* CALCIUM 9.7 9.3 9.6 MG -- 1.1* 2.5 PHOS -- 4.4 5.6* Recent Labs 01/27/25201901/28/25 0714 01/29/25 0555 AST 20 17 19 ALT 26 19 19 ALKPHOS 55 45 59 BILITOT 0.9 0.8 0.5 BILIDIRECT 0.1 0.14 0.08 ALBUMIN 5.0 4.2 4.2 4.8 4.8 No results for input(s): INR , PROTIME , PTT in the last 72 hours. No results for input(s): POCGLU in the last 72 hours. Invalid input(s): GLU Current Medications: Scheduled Meds: cyclobenzaprine 5 mg Oral TID famotidine 20 mg Oral BID fidaxomicin 200 mg Oral BID FLUoxetine 20 mg Oral Daily 0900 gabapentin 100 mg Oral TID heparin 5,000 Units Subcutaneous 3 times per day levothyroxine 75 mcg Oral QAM AC lidocaine 1 patch Transdermal Daily 0900 methocarbamoL 1,000 mg Oral TID [Held by provider] mycophenolate 500 mg Oral BID naltrexone 50 mg Oral Daily 0900 NIFEdipine 30 mg Oral Daily 0900 predniSONE 5 mg Oral Daily 0900 [Held by provider] tacrolimus 5 mg Oral QAM And [Held by provider] tacrolimus 6 mg Oral QPM Continuous Infusions: PRN Meds: acetaminophen ASSESSMENT/PLAN Julien Gilbert is a 39 y.o. male with past medical history of hepatic encephalopathy, ascites, varices, and hepato-renal syndrome who underwent OLT on 10/25/2024 and DDKT on 10/27/2024 admitted for diarrhea, acute on chronic neck pain, and right sided-headaches. PLAN: - dificid/ ID recs - follow infectious work-up - encourage PO/ OOB - continue IS/ monitoring CV: HDS PULM: RA, encourage IS/OOB FEN/GI: Reg diet /RENAL: monitor I&Os, monitor daily labs HEME: Monitor daily labs. Check Diff given concern for neutropenia. ID: Infectious work-up in progress. BC/UC NGTD. C diff (+) started on Dificid IS: pred 5 mg, cellcept on hold, tacro 5/6 NEURO: MMPR. Add lidocaine patch. Ct Head WO negative for acute changes. PPX: SQH, PPI DISPO: floor Final plan per attending physician Feliciano Gomez CNP ,DIAMOND FINISHING SUPERVISOR Transplant Surgery 01/29/2025 This note was completely edited, written and [...] current evaluation and management for this patient. Cosigned by Lydia Sanchez MD at 01/30/2025 9:40 PM EDT Associated attestation - Lydia Sanchez MD - 01/30/2025 9:40 PM EDT This patient was seen and examined by the SAWYER/Resident team on 01/29/25. I have discussed the patient's care with the team. Immunosuppression reviewed and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 Mental Health History: Yes (PTSD,Generalized Anxiety Disorder) Behavioral Health Agency Involvement: Yes Behavioral Health Agency Name: Other (Comment) Behavioral Health Agency Phone Number: Transplant Psych Do you need Mental Health treatment resources?: No Patient Requests Social Work Consult?: No Substance Abuse: Yes Last Substance Abuse Date: 07/09/24 Treatment History: CD Treatment prior to transplant Do you need Substance Abuse Treatment Resources?: No Social Work Consult for Substance Abuse Ordered?: No Suicide Attempts: No Activities of Daily Living: Independent 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 Marital Status: Relative Search Completed: No Demographics Correct:: Yes Current Living Arrangements Current Living Arrangements Current Living Arrangements: Home Type of Housing: House Who do you live with?: With Family What family member?: Spouse One Story or Two (check all that apply): One Story History of Falls?: No Community Services Community Services Community Services at Home: Not Applicable Was any abuse reported by patient?: No Status & Connection to [facility] Services [place] Status & Connection to [place] Services Are you a ?: No Support Systems Emergency contact: Extended Emergency Contact Information Primary Emergency Contact: Abdiaziz Gilbert (next of kin) Mobile Relation: Spouse Secondary Emergency Contact: brown gilbert Mobile Relation: Brother Support Systems Legal Status: N/A Primary Caregiver: Self Marital Status: Relative Search Completed: No Demographics Correct:: Yes Expected Discharge Disposition: Home Next of Kin: Abdiaziz Gilbert Next of Kin Relationship: Spouse Next of Kin Assessment Information Obtained From:: Patient, Chart Review Other Pertinent Information SW consult request reviewed and completed. JOSELO Hillman introduced self to patient, explained role, verified demographic and emergency contact information. SWCM verified patients LNOK and HCPOA and assessment was completed by conversation with patient and chart review. SWCM will provide active listening and will work with patient's family, medical team and any community providers to assist in coordination of care for discharge planning. SWCM will provide intervention and contact based on the patient and family's needs. SWCM verified patient's supports at discharge. SWCM discussed transplant needs and follow up appointments. Per Chart Review, Patient received a liver transplant 10/26/24 and a kidney transplant 10/27/24. Per H&P, Neutropenic fevers, diarrhea, Julien Justin is a 39 y.o. male with past medical history of hepatic encephalopathy, ascites, varices, and hepato-renal syndrome who underwent OLT on 10/25/2024 and DDKT on 10/27/2024 with a relatively uncomplicated post operative course, discharged on 11/02,with no subsequent hospital admissions. He now presents with diarrhea since Sunday evening, non bloody, no inciting events. Reports temperature of 99F. Also endorses acute on chronic neck pain and associated right sided headaches s/p weaning off of tramadol. Denies abdominal pain, denies PO intolerance. Patient is a male who is and living with his spouse in their home in the community. Patientreported he has no children. Patient reported that he is independent with ADLs. Patient has one dogin the home. Patient reported that he is not a [place]. Patient reported he is employed full- time. Patient does not report financial concerns/difficulties at this time. Patient is not using community resources tomeet his needs at this time. Patient does not have Advance Directives. Patient's legal next of kin is Abdiaziz Gilbert, his spouse. Patient has a history of and current mental health concerns or diagnoses of PTSD,Generalized Anxiety Disorder) Patient has a history of alcohol abuse prior to transplant. He has no tobacco use, and/or drug/illicit substance use concerns. Patient does not use home oxygen, DME use, or dialysis. Patient has no history of care home facility or inpatient rehabilitation facility admissions. Patient has no history of home health care services. Patient receives outpatient labs at his appointments. PCP: Enedina Mcguire SWCM confirmed with patient/family that there are no additional SWCM needs at this time. SW provided the family with SW contact [phone]. Patient/Family aware and taking part in the discharge plan. This assessment has been reviewed with the multi-disciplinary team. Advance Directives (For Healthcare) Advance Directive: Patient has advance directive, copy not in chart Advance Directive not in Chart: Copy requested from family member Healthcare Agent Appointed: No Pre-existing DNR/DNI Order: No Patient Requests Assistance: No Discharge Plan Met with patient to initiate discussion regarding discharge planning. Introduced self and role of case management/social work and provided contact information. Anticipated Discharge Plan: Home Anticipated Discharge Date: 01/30 Anticipated Transportation: Family Patient/Family aware and taking part in the discharge plan. Patient/family educated that once post-acute care needs have been identified, a provider list applicable to the identified post-acute care needs as well as the insurance provider will be provided, and patient/family have the freedom to choose their provider(s); financial interest(s) are disclosed as appropriate. NUBIA TIAN, RONALDO [phone] documented in this encounter Nursing Notes * Roberto Carlos Soliz RN - 01/27/2025 5:26 PM EDT Patient arrived to ED to get evaluated as he has been having fever,diarrhea, fatigue, and headache.Patient states that he feels dehydrated as well. Patient with a recent history of liver transplant and requested to come to ED by transplant service to get an infectious work up completed. documented in this encounter ED Notes * Anu Huang RN - 01/27/2025 11:11 PM EDT Ready and clean bed assigned to [id number]. Pt updated on plan of care including transfer and is agreeable. Receiving RN may call [phone] to consult ED RN with questions regarding patients care. Pt is leaving the department in stable condition with all personal items in possession. Ordered medications that have been received from Pharmacy will be tubed to receiving unit. The patient does not have a patient monitor at bedside in the ED. Most recent vitals: BP (!) 124/91 (BP Location: Right upper arm, Patient Position: Lying) Pulse 73 Temp 98.2 ??F (36.8 ??C) Resp 22 SpO2 95% ANU HUANG RN * Anu Huang RN - 01/27/2025 7:17 PM EDT Assumed care of patient- pt resting in bed comfortably. This RN noted that the pt looked visibly tired. Pt reports feeling run down, having diarrhea and running a low grade fever last night. Pt's current temp is 98.2 F. Pt's at bedside. Pt is still on continuous monitoring, even unlabored breathing, bed in lowest position, call light within reach, provided with warm blankets. No other requests at this time. Denies pain at this time.Updated on plan of care-patient agreeable. * Leeanna Garibay RN - 01/27/2025 7:07 PM EDT Bed: [facility] Expected date: Expected time: Means of arrival: Comments: Triage - 4 documented in this encounter Miscellaneous Notes * Plan of Care - Elba Vargas RN - 01/30/2025 11:29 AM EDT Problem: Safety Goal: Patient will [...] Patient will remain free of falls Goal: [place] Precautions Outcome: Progressing Problem: Daily Care Goal: Daily care needs are met Description: Assess and monitor ability to perform self care and identify potential discharge needs. Outcome: Progressing Problem: Psychosocial Needs Goal: Demonstrates ability to cope with hospitalization/illness Description: Assess and monitor patients ability to cope with his/her illness. Outcome: Progressing Problem: Discharge Barriers Goal: Patient's discharge needs are met Description: Collaborate with interdisciplinary team and initiate plans and interventions as needed. Outcome: Progressing * Care Coordination - NUBIA Tian LSW - 01/29/2025 11:45 AM EDT [facility] Case Management/Social Work Department Progress Note Patient Information Patient Name: Julien Gilbert Hospital day: 2 Inpatient/Observation: Inpatient Level of Care: Transplant/floor Admit date: 01/27/2025 Admission diagnosis: Diarrhea of presumed infectious origin [R19.7] PMH: has a past medical history of Alcoholic cirrhosis of liver (CMS-HCC), Esophageal varices ([facility]-HCC), Hepatorenal syndrome ([facility]-HCC), Hypertension, Other hyperlipidemia (07/26/2024), Renal cell carcinoma (CMS-HCC), Thrombocytopenia ([facility]-HCC), and Thyroid disease. PCP: Enedina Mcguire NP Home Pharmacy: [facility] - [place], [place] - [id number] [address] [facility] - [place], [place] - [address] [facility] [address] [facility] [address] [facility] [address] [place] [phone] Medical Insurance Coverage: Payor: [employer] CARE / Plan: [employer] [facility] / Product Type: *No Product type* / Other Pertinent Information SWCM attended multidisciplinary rounds with the Transplant Team. SWCM reviewed [facility]'s [facility] is not medically ready to discharge. Patient to receive CT scan. Patient goes outpatient for lab draws. Discharge Plan Anticipated discharge plan: Home w OP labs Anticipated discharge date: 01/30 CM/SW will continue to follow and remain available for discharge planning needs. NUBIA TIAN, RONALDO [phone] * Plan of Care - Vandana Vilchis RN - 01/28/2025 11:04 PM EDT Problem: Safety Goal: Patient will [...] Patient will remain free of falls Goal: [place] Precautions Outcome: Progressing Problem: Daily Care [...] Outcome: Progressing * Plan of Care - Mariax Mock RN - 01/28/2025 1:27 AM EDT Problem: Safety Goal: Patient will [...] Patient will remain free of falls Goal: [place] Precautions Outcome: Progressing * ED Medical Screening Exam - NAA Dunn - 01/27/2025 6:36 PM EDT [facility] Provider Note MEDICAL SCREENING EXAM Date of Service: 01/27/2025 Reason for Visit: Fever Immunocompromised (99F x1 day ago), Diarrhea, and Headache MSE Plan Patient evaluated from the lobby for a medical screening exam. In short, this is a patient presenting with low grade fevers, diarrhea, fatigue and a headache. To further evaluate their complaints, the following orders have been placed: Labs Reviewed BLOOD CULTURE-PERIPHERAL BLOOD CULTURE-PERIPHERAL BASIC METABOLIC PANEL HEMOGLOBIN A1C CBC DIFFERENTIAL HEPATIC FUNCTION PANEL LIPASE URINALYSIS-MACROSCOPIC W/REFLEX TO MICROSCOPIC INFLUENZA A AND B, COVID, RSV COMBINATION ASSAY, BJ X-ray Chest PA and Lateral (Results Pending) There is a bed available in [facility] and the patient will be taken directly to a room Brief HPI Julien Gilbert is a 39 y.o. male presenting with low grade fevers, diarrhea, fatigue and a headache. The patient states his symptoms started on Sunday. He has been taking Tylenol which has helped with the fevers. Tmax was 99. He has been speaking with his transplant team as he is status post both liver and kidney transplant in October of this year. They did blood work last week and he was found to be neutropenic so after further discussion amongst the transplant team they told the patient to come intoday for evaluation of possible infectious etiology. He states he often has headaches as he broke his neck when he was a child but states the headache has radiated from 1 side to the other which is new for his headaches. He denies nausea or vomiting. Pertinent Physical Exam ED Triage Vitals Encounter Vitals Group BP 01/27/25 1727 138/87 Girls Systolic BP Percentile -- Girls Diastolic BP Percentile -- Boys Systolic BP Percentile -- Boys Diastolic BP Percentile -- Heart Rate 01/27/25 1727 94 Resp 01/27/25 1727 17 Temp 01/27/25 1727 97.8 ??F (36.6 ??C) Temp Source 01/27/25 1727 Oral SpO2 01/27/25 1727 100 % Weight -- Height -- Head Circumference -- Peak Flow -- Pain Score 01/27/25 1725 Eight Pain Loc -- Pain Education -- Exclude from Growth Chart -- General: Well-developed, well-nourished in no acute distress Head: Atraumatic. Eyes: Sclera anicteric. No conjunctival injection. ENT: Mucous membranes moist. Neck/Back: Supple. Chest/Pulmonary: No respiratory distress. Cardiac: Regular rhythm with a mildly tachycardic rate Vascular: Extremities warm and perfused. Extremities: No peripheral edema. Abdomen: Non-distended. Neuro: Alert and oriented x 3. No gross neurological deficits. Psych: Normal affect. Skin: No rash. Past Medical History Medical History: Past Medical History: Diagnosis Date [...] MD; Location: OR; Service: Transplant; Laterality: N/A; Medications: No current facility-administered medications for this encounter. Current Outpatient Medications: acetaminophen (TYLENOL) 325 MG tablet, Take 3 tablets (975 mg total) by mouth every 8 hours. (Patient taking differently: Take 2 tablets (650 mg total) by mouth every 8 hours as needed for Pain.), Disp: 200 tablet, Rfl: 0 ergocalciferol (ERGOCALCIFEROL) 1,250 mcg (50,000 unit) capsule, Take 1 capsule (50,000 Units total) by mouth once a week., Disp: 4 capsule, Rfl: 2 famotidine (PEPCID) 20 MG tablet, Take 1 tablet (20 mg total) by mouth 2 times a day., Disp: 60 tablet, Rfl: 2 FLUoxetine (PROZAC) 20 MG capsule, Take 1 capsule (20 mg total) by mouth daily., Disp: 30 capsule, Rfl: 2 gabapentin (NEURONTIN) 100 MG capsule, Take 1 capsule (100 mg total) by mouth 2 times a day. Work on decreasing to one capsule daily., Disp: 60 capsule, Rfl: 0 levothyroxine (SYNTHROID) 75 MCG tablet, Take 1 tablet (75 mcg total) by mouth every morning beforebreakfast., Disp: , Rfl: loratadine (CLARITIN) 10 mg tablet, Take 1 tablet (10 mg total) by mouth daily as needed for Allergies (itching)., Disp: 30 tablet, Rfl: 0 magnesium chloride (SLOW MAG) 71.5 mg TbEC, Take 2 tablets (143 mg total) by mouth 3 times a day. Indications: hypomagnesemia (Patient taking differently: Take 2 tablets (143 mg total) by mouth in the morning and at bedtime. Indications: hypomagnesemia), Disp: 180 tablet, Rfl: 2 methocarbamoL (ROBAXIN) 500 MG tablet, Take 2 tablets (1,000 mg total) by mouth 2 times a day as needed., Disp: 120 tablet, Rfl: 0 mycophenolate (CELLCEPT) 250 mg capsule, Take 2 capsules (500 mg total) by mouth 2 times a day., Disp: 120 capsule, Rfl: 5 naltrexone (DEPADE) 50 mg tablet, Take 1 tablet (50 mg total) by mouth daily., Disp: 30 tablet, Rfl: 5 NIFEdipine (PROCARDIA-XL) 30 MG (OSM) 24 hr tablet, Take 1 tablet by mouth once daily, Disp: 30 tablet, Rfl: 2 predniSONE (DELTASONE) 5 MG tablet, Take 1 tablet (5 mg total) by mouth daily., Disp: 90 tablet, Rfl: 0 tacrolimus (PROGRAF) 1 MG capsule, Take 5 capsules (5 mg total) by mouth every morning AND 6 capsules (6 mg total) every evening. Use as directed. Indications: Prevention of Kidney Transplant Rejection, Prevention of Liver Transplant Rejection., Disp: 330 capsule, Rfl: 5 documented in this encounter Plan of Treatment Not on file documented as of this encounter Procedures Procedure Name Priority Date/Time Associated Diagnosis Comments DIFFERENTIAL Add-On 01/30/2025 7:41 AM EDT HEPATIC FUNCTION PANEL STAT 5:51 AM EDT RENAL FUNCTION PANEL W/EGFR STAT 01/30/2025 5:51 AM EDT TACROLIMUS LEVEL Timed 01/30/2025 5:51 AM EDT CBC STAT 01/30/2025 5:51 AM EDT MAGNESIUM STAT 01/30/2025 5:[address] NECK WITH IV CONTRAST Routine 025 2:00 PM EDT HEPATIC FUNCTION PANEL Routine 5:55 AM EDT RENAL FUNCTION PANEL W/EGFR STAT 01/29/2025 5:55 AM EDT SED RATE Routine 01/29/2025 5:55 AM EDT TACROLIMUS LEVEL Timed 01/29/2025 5:55 AM EDT CBC STAT 01/29/2025 5:55 AM EDT C-REACTIVE PROTEIN Routine 01/29/2025 5: 55 AM EDT MAGNESIUM STAT 01/29/2025 5:55 AM EDT GIARDIA CRYPTOSPORIDIUM ANTIGENS Routine 01/28/2025 9:27 PM EDT OVA AND PARASITE COMPREHENSIVE W/ GIARDIA/CRYPTO Routine 01/28/2025 9:27 PM EDT CLOSTRIDIUM DIFFICILE DNA AMPLIFICATION Routine 01/28/2025 1:21 PM EDT CLOSTRIDIUM DIFFICILE TOXIN A/B ANTIGEN Routine 01/28/2025 1:21 PM EDT PHOSPHATIDYLETHANOL CONFIRMATION, B Timed 01/28/2025 7:14 AM EDT HEPATIC FUNCTION PANEL STAT 7:14 AM EDT RENAL FUNCTION PANEL W/EGFR STAT 01/28/2025 7:14 AM EDT TACROLIMUS LEVEL Timed 01/28/2025 7:14 AM EDT CBC STAT 01/28/2025 7:14 AM EDT MAGNESIUM STAT 01/28/2025 7:[address] HEAD WO CONTRAST STAT 01/28/2025 1 2:35 AM EDT ENTERIC PATHOGEN PANEL Routine 9:30 PM EDT UPPER RESPIRATORY VIRAL/BACTERIAL PANEL-CREATIVE SERVICES DIRECTOR ONLY Routine 01/27/2025 9:30 PM EDT LACTIC ACID, VENOUS BLOOD GAS STAT 01/27/2025 9:30 PM EDT HISTOPLASMA/BLASTOMYCES AG, EIA, U Routine 01/27/2025 8:44 PM EDT STREP PNEUMO-LEGIONELLA URINE ANTIGEN Routine 01/27/2025 8:44 PM EDT URINALYSIS, MICROSCOPIC STAT 01/28/20 8:44 PM EDT URINALYSIS-MACROSCOPIC W/REFLEX TO MICROSCOPIC STAT 01/27/2025 8:44 PM EDT HISTOPLASMA/BLASTOMYCES AG, EIA, S Routine 01/27/2025 8:20 PM EDT FUNGITELL [id number] Routine 01/28/20 8:20 PM EDT CRYPTOCOCCUS ANTIGEN, SERUM Routine 01/27/2025 8:20 PM EDT PHOSPHATIDYLETHANOL CONFIRMATION, B Routine 01/27/2025 8:20 PM EDT BK VIRUS QUANTITATIVE BY PCR, BLOOD Routine 01/27/2025 8:20 PM EDT CYTOMEGALOVIRUS DNA, QUANT, RT PCR Routine 01/27/2025 8:20 PM EDT HEPATIC FUNCTION PANEL STAT 8:20 PM EDT KATIE SCHAFER VIRUS DNA, QNT PCR, BLOOD Routine 01/27/2025 8:20 PM EDT ADENOVIRUS, QUANTITATIVE PCR Routine 01/27/2025 8:20 PM EDT ASPERGILLUS AG Routine 01/27/2025 8:20 PM EDT DIFFERENTIAL STAT 01/27/2025 8:20 PM EDT BLOOD CULTURE-PERIPHERAL STAT 025 8:20 PM EDT BLOOD CULTURE-PERIPHERAL STAT 025 8:20 PM EDT CBC STAT 01/27/2025 8:20 PM EDT AFB CULTURE, BLOOD Routine 01/27/2025 8: 20 PM EDT FUNGUS CULTURE, BLOOD Routine 01/27/2025 8:20 PM EDT LIPASE STAT 01/27/2025 8:20 PM EDT HEMOGLOBIN A1C Routine 01/27/2025 8:20 PM EDT BASIC METABOLIC PANEL STAT 01/27/2025 8:20 PM EDT XR CHEST PA AND LATERAL TAMIR 01/28/20 25 7:02 PM EDT documented in this encounter Results * (ABNORMAL) Differential (01/30/2025 7:41 AM EDT) Neutrophils Relative 39.1(L) 40.0 - 80.0 % 01/30/2025 8:09 AM EDT [facility] Lymphocytes Relative 43.8 15.0 - 45.0 % 01/30/2025 8:09 AM EDT [facility] Monocytes Relative 14.2(H) 0.0 - 12.0 % 01/30/2025 8:09 AM EDT [facility] Eosinophils Relative 2.2 0.0 - 8.0 % 01/30/2025 8:09 AM EDT [facility] Basophils Relative 0.7 0.0 - 1.0 % 01/30/2025 8:09 AM EDT [facility] nRBC 0 0 - 0 /100 WBC 01/30/2025 8:09 AM EDT [facility] Neutrophils Absolute 782(L) 1,520 - 8,640 /uL 01/30/2025 8:09 AM EDT [facility] Lymphocytes Absolute 876 570 - 4,860 /uL 01/30/2025 8:09 AM EDT [facility] Monocytes Absolute 284 0 - 1,296 /uL 01/30/2025 8:09 AM EDT [facility] Eosinophils Absolute 44 0 - 864 /uL 01/30/2025 8:09 AM EDT [facility] Basophils Absolute 14 0 - 108 /uL 01/30/2025 8:09 AM EDT [facility] Whole Blood 01/30/2025 7:41 AM EDT 01/30/2025 8:01 AM EDT Feliciano Gomez [facility] BLOOD ORDERABLES Final Resu lt [facility] [address] [place] [address], [facility] * Tacrolimus level (01/30/2025 5:51 AM EDT) Tacrolimus (LC-MS) 6.5 3.0 - 15.0 ng/mL 01/30/2025 11:11 AM EDT [facility] Comment:Performed via liquid chromatography tandem mass spectrometry. Detection limit: 1 ng/mL. Individual target concentrations may vary due to target organ and time after transplant. This test has been developed and its performance characteristics determined by [facility] which is certified under the Clinical Laboratory Improvement Amendment of 1988 (CLIA-88) to perform high complexity testing. The test has not been cleared or approved by the US Food and Drug Administration (FDA). The FDA has determined that such clearance is not necessary. The test should be used for clinical purposes and is not regarded as investigational. Whole Blood 01/30/2025 5:51 AM EDT 01/30/2025 6:31 AM EDT Carlton Hill MD LAB BLOOD ORDERABLES Final Result [facility] [address] * (ABNORMAL) Renal Function Panel w/EGFR (01/30/2025 5:51 AM EDT) Sodium 139 133 - 146 mmol/L 01/30/2025 7:06 AM EDT [facility] Potassium 3.5 3.5 - 5.3 mmol/L 01/30/2025 7:06 AM EDT [facility] Chloride 105 98 - 110 mmol/L 01/30/2025 7:06 AM EDT [facility] CO2 26 21 - 33 mmol/L 01/30/2025 7:06 AM EDT [facility] Anion Gap 8 3 - 16 mmol/L 01/30/2025 7:06 AM EDT [facility] BUN 29(H) 7 - 25 mg/dL 01/30/2025 7:06 AM EDT [facility] Creatinine 1.14 0.60 - 1.30 mg/dL 01/30/2025 7:06 AM EDT [facility] Glucose 114(H) 70 - 100 mg/dL 01/30/2025 7:06 AM EDT [facility] Calcium 8.7 8.6 - 10.3 mg/dL 01/30/2025 7:06 AM EDT [facility] Phosphorus 5.1(H) 2.1 - 4.7 mg/dL 01/30/2025 7:06 AM EDT [facility] Albumin 4.1 3.5 - 5.7 g/dL 01/30/2025 7:06 AM EDT [facility] Osmolality, Calculated 295 278 - 305 mOsm/kg 01/30/2025 7:06 AM EDT [facility] EGFR 83 01/30/2025 7:06 AM EDT [facility] Comment:As of 2021, the estimated [...] Disease. Am J Kidney Dis. 2020. Plasma 01/30/2025 5:51 AM EDT 01/30/2025 6:31 AM EDT Carlton Hill MD LAB BLOOD ORDERABLES Final Result [facility] [address] * (ABNORMAL) Hepatic Function Panel (01/30/2025 5:51 AM EDT) Total Bilirubin 0.3 0.0 - 1.5 mg/dL 01/30/2025 7:06 AM EDT [facility] Bilirubin, Direct 0.05 0.00 - 0.40 mg/dL 01/30/2025 7:06 AM EDT [facility] AST 13 13 - 39 U/L 01/30/2025 7:06 AM EDT [facility] ALT 14 7 - 52 U/L 01/30/2025 7:06 AM EDT [facility] Alkaline Phosphatase 60 36 - 125 U/L 01/30/2025 7:06 AM EDT [facility] Total Protein 5.9(L) 6.4 - 8.9 g/dL 01/30/2025 7:06 AM EDT [facility] Albumin 4.1 3.5 - 5.7 g/dL 01/30/2025 7:06 AM EDT [facility] Bilirubin, Indirect 0.25 0.00 - 1.10 mg/dL 01/30/2025 7:06 AM EDT [facility] Plasma 01/30/2025 5:51 AM EDT 01/30/2025 6:31 AM EDT Carlton Hill MD LAB BLOOD ORDERABLES Final Result [facility] [address] [facility] * Magnesium (01/30/2025 5:51 AM EDT) Magnesium 1.7 1.5 - 2.5 mg/dL 01/30/2025 7:06 AM EDT [facility] Plasma 01/30/2025 5:51 AM EDT 01/30/2025 6:31 AM EDT Carlton Hill MD LAB BLOOD ORDERABLES Final Result [facility] [address] * (ABNORMAL) CBC (01/30/2025 5:51 AM EDT) WBC 2.1(L) 3.8 - 10.8 10E3/uL 01/30/2025 6:41 AM EDT [facility] RBC 3.41(L) 4.20 - 5.80 10E6/uL 01/30/2025 6:41 AM EDT [facility] Hemoglobin 11.2(L) 13.2 - 17.1 g/dL 01/30/2025 6:41 AM EDT [facility] Hematocrit 31.9(L) 38.5 - 50.0 % 01/30/2025 6:41 AM EDT [facility] MCV 93.7 80.0 - 100.0 fL 01/30/2025 6:41 AM EDT [facility] MCH 32.9 27.0 - 33.0 pg 01/30/2025 6:41 AM EDT [facility] MCHC 35.1 32.0 - 36.0 g/dL 01/30/2025 6:41 AM EDT [facility] RDW 14.8 11.0 - 15.0 % 01/30/2025 6:41 AM EDT [facility] Platelets 95(L) 140 - 400 10E3/uL 01/30/2025 6:41 AM EDT [facility] MPV 6.4(L) 7.5 - 11.5 fL 01/30/2025 6:41 AM EDT [facility] Whole Blood 01/30/2025 5:51 AM EDT 01/30/2025 6:33 AM EDT Carlton Hill MD LAB BLOOD ORDERABLES Final Result [facility] [address] [place] [address], [facility] * CT Neck With IV contrast (01/29/2025 2:00 PM EDT) Anatomical Region Laterality Modality Neck, C-spine Computed Tomogra phy 01/29/2025 1:50 PM EDT Impressions 01/29/2025 2:41 PM EDT IMPRESSION: 1. No acute findings in the neck. No evidence for abscess. 2. Status post ACDF of C3-C6 with corpectomy at C4-C5. Report Verified by: Mariam Church MD at 01/29/2025 2:41 PM EDT Narrative 01/29/2025 2:41 PM EDT EXAM: CT NECK WITH IV CONTRAST INDICATION: neck pain w/ reports of fever at home. Transplant patient on immunosuppression needing evaluation for potential underlying infectious process. TECHNIQUE: Axial thin section CT images of the neck were obtained after 150 mL of IOHEXOL 350 MG IODINE/ML INTRAVENOUS SOLUTION administered intravenously . Sagittal and coronal 2D multiplanar reconstructions were performed at the scanner. COMPARISON: None available FINDINGS: Adequate diagnostic quality. Nasopharynx: Symmetric with no mass. Normal torus tubarius, fossa of Rosenmuller, and adenoid tonsillar tissue. Suprahyoid neck: Normal oropharynx, oral cavity, parapharyngeal space, and retropharyngeal space. Normal starting sheet tank operator space, infratemporal fossa, and buccal space. Infrahyoid neck: Normal larynx, hypopharynx, and supraglottis. Lymph nodes: No adenopathy. Salivary Glands: Normal bilateral parotid, submandibular, and sublingual glands with no dilated ducts or calculi. Thyroid: Normal. Brain: Normal as included. Orbits, paranasal sinuses, mastoids: No acute orbital abnormality. Clear paranasal sinuses. Clear mastoid air cells. Vascular structures: Mild atherosclerotic disease with no hemodynamically significant stenosis. Thoracic inlet: No mass, nodule, or abnormal lung opacity included. Bones: Status post prior ACDF of C3-C6 with corpectomy at C4-C5 and solid osseous fusion. The remainder of the osseous structures are unremarkable. Procedure Note Mariam Church MD - 01/29/2025 EXAM: CT NECK WITH IV CONTRAST INDICATION: neck pain w/ reports of fever at home. 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 TECHNIQUE: Axial thin section CT images of the neck were obtained [id number] mL of IOHEXOL 350 MG IODINE/ML INTRAVENOUS SOLUTION administeredintravenously . Sagittal and coronal 2D multiplanar reconstructions wereperformed at the scanner. COMPARISON: None available FINDINGS: Adequate diagnostic quality. Nasopharynx: Symmetric with no mass. Normal torus tubarius, fossa ofRosenmuller, and adenoid tonsillar tissue. Suprahyoid neck: Normal oropharynx, oral cavity, parapharyngeal space, andretropharyngeal space. Normal starting sheet tank operator space, infratemporal fossa, andbuccal space. Infrahyoid neck: Normal larynx, hypopharynx, and supraglottis. Lymph nodes: No adenopathy. Salivary Glands: Normal bilateral parotid, submandibular, and sublingualglands with no dilated ducts or calculi. Thyroid: Normal. Brain: Normal as included. Orbits, paranasal sinuses, mastoids: No acute orbital abnormality. Clearparanasal sinuses. Clear mastoid air cells. Vascular structures: Mild atherosclerotic disease with no hemodynamicallysignificant stenosis. Thoracic inlet: No mass, nodule, or abnormal lung opacity included. Bones: Status post prior ACDF of C3-C6 with corpectomy at C4-C5 and solidosseous fusion. The remainder of the osseous structures areunremarkable. IMPRESSION: 1. No acute findings in the neck. No evidence for abscess. 2. Status post ACDF of C3-C6 with corpectomy at C4-C5. Report Verified by: Mariam Church MD at 01/29/2025 2:41 PM EDT Feliciano Garcia Jason FALCON IMG CT ORDERABLES Final Result * Tacrolimus level (01/29/2025 5:55 AM EDT) Pathologist [facility] Tacrolimus (LC-MS) 9.1 3.0 - 15.0 ng/mL 01/29/2025 9:10 AM EDT [facility] Comment:Performed via liquid chromatography tandem mass spectrometry. Detection limit: 1 ng/mL. Individual target concentrations may vary due to target organ and time after transplant. This test has been developed and its performance characteristics determined by [facility] which is certified under the Clinical Laboratory Improvement Amendment of 1988 (CLIA-88) to perform high complexity testing. The test has not been cleared or approved by the US Food and Drug Administration (FDA). The FDA has determined that such clearance is not necessary. The test should be used for clinical purposes and is not regarded as investigational. Whole Blood 01/29/2025 5:55 AM EDT 01/29/2025 6:41 AM EDT Carlton Hill MD LAB BLOOD ORDERABLES Final Result [facility] [address] [place] [address], [facility] * (ABNORMAL) Renal Function Panel w/EGFR (01/29/2025 5:55 AM EDT) Sodium 138 133 - 146 mmol/L 01/29/2025 7:13 AM EDT [facility] Potassium 3.9 3.5 - 5.3 mmol/L 01/29/2025 7:13 AM EDT [facility] Chloride 102 98 - 110 mmol/L 01/29/2025 7:13 AM EDT [facility] CO2 27 21 - 33 mmol/L 01/29/2025 7:13 AM EDT [facility] Anion Gap 9 3 - 16 mmol/L 01/29/2025 7:13 AM EDT [facility] BUN 23 7 - 25 mg/dL 01/29/2025 7:13 AM EDT [facility] Creatinine 1.39(H) 0.60 - 1.30 mg/dL 01/29/2025 7:13 AM EDT [facility] Glucose 108(H) 70 - 100 mg/dL 01/29/2025 7:13 AM EDT [facility] Calcium 9.6 8.6 - 10.3 mg/dL 01/29/2025 7:13 AM EDT [facility] Phosphorus 5.6(H) 2.1 - 4.7 mg/dL 01/29/2025 7:13 AM EDT [facility] Albumin 4.8 3.5 - 5.7 g/dL 01/29/2025 7:13 AM EDT [facility] Osmolality, Calculated 290 278 - 305 mOsm/kg 01/29/2025 7:13 AM EDT [facility] EGFR 65 01/29/2025 7:13 AM EDT [facility] Comment:As of 2021, the estimated [...] Disease. Am J Kidney Dis. 2020. Plasma 01/29/2025 5:55 AM EDT 01/29/2025 6:41 AM EDT Carlton Hill MD LAB BLOOD ORDERABLES Final Result Performing Organization Address City/[facility]/ZIP Co de Phone Number [facility] [address] [facility]. [address] * Hepatic Function Panel (01/29/2025 5:55 AM EDT) Total Bilirubin 0.5 0.0 - 1.5 mg/dL 01/29/2025 7:13 AM EDT [facility] Bilirubin, Direct 0.08 0.00 - 0.40 mg/dL 01/29/2025 7:13 AM EDT [facility] AST 19 13 - 39 U/L 01/29/2025 7:13 AM EDT [facility] ALT 19 7 - 52 U/L 01/29/2025 7:13 AM EDT [facility] Alkaline Phosphatase 59 36 - 125 U/L 01/29/2025 7:13 AM EDT [facility] Total Protein 7.0 6.4 - 8.9 g/dL 01/29/2025 7:13 AM EDT [facility] Albumin 4.8 3.5 - 5.7 g/dL 01/29/2025 7:13 AM EDT [facility] Bilirubin, Indirect 0.42 0.00 - 1.10 mg/dL 01/29/2025 7:13 AM EDT [facility] Plasma 01/29/2025 5:55 AM EDT 01/29/2025 6:41 AM EDT Carlton Hill MD LAB BLOOD ORDERABLES Final Result [facility] [address] [facility]. [address] * Magnesium (01/29/2025 5:55 AM EDT) Magnesium 2.5 1.5 - 2.5 mg/dL 01/29/2025 7:13 AM EDT [facility] Plasma 01/29/2025 5:55 AM EDT 01/29/2025 6:41 AM EDT Carlton Hill MD LAB BLOOD ORDERABLES Final Result [facility] [address] [facility]. [address] * (ABNORMAL) CBC (01/29/2025 5:55 AM EDT) WBC 2.4(L) 3.8 - 10.8 10E3/uL 01/29/2025 6:53 AM EDT [facility] RBC 3.88(L) 4.20 - 5.80 10E6/uL 01/29/2025 6:53 AM EDT [facility] Hemoglobin 12.8(L) 13.2 - 17.1 g/dL 01/29/2025 6:53 AM EDT [facility] Hematocrit 36.6(L) 38.5 - 50.0 % 01/29/2025 6:53 AM EDT [facility] MCV 94.1 80.0 - 100.0 fL 01/29/2025 6:53 AM EDT [facility] MCH 32.9 27.0 - 33.0 pg 01/29/2025 6:53 AM EDT [facility] MCHC 34.9 32.0 - 36.0 g/dL 01/29/2025 6:53 AM EDT [facility] RDW 14.8 11.0 - 15.0 % 01/29/2025 6:53 AM EDT [facility] Platelets 119(L) 140 - 400 10E3/uL 01/29/2025 6:53 AM EDT [facility] MPV 6.2(L) 7.5 - 11.5 fL 01/29/2025 6:53 AM EDT [facility] Whole Blood 01/29/2025 5:55 AM EDT 01/29/2025 6:41 AM EDT Carlton Hill MD LAB BLOOD ORDERABLES Final Result [facility] [address] [facility]. [address] * Sed Rate (01/29/2025 5:55 AM EDT) Pathologist [facility] Sed Rate 2 0 - 15 mm/hr 01/29/2025 7:03 AM EDT [facility] Whole Blood 01/29/2025 5:55 AM EDT 01/29/2025 6:41 AM EDT Feliciano Garcia Jason FERTILIZER PROCESSING SUPERVISOR LAB BLOOD ORDERABLES Final Resu lt [facility] [address] * C-Reactive Protein (01/29/2025 5:55 AM EDT) [facility] CRP 4.1 1.0 - 10.0 mg/L 01/29/2025 7:13 AM EDT [facility] Plasma 01/29/2025 5:55 AM EDT 01/29/2025 6:41 AM EDT Feliciano Jose Jason [facility] LAB BLOOD ORDERABLES Final Resu lt Performing Organization Address [facility] de Phone Number [facility] [address] [facility]. [address] * Giardia Cryptosporidium Antigens (Feces) (01/28/2025 9:27 PM EDT) [facility] Cryptosporidium Ag Negative Negative 2024 8:03 AM EDT [facility] Giardia Ag Negative Negative 01/29/2025 8:03 AM EDT [facility] Comment: Detection of Giardia and Cryptosporidium antigen is more sensitive and specific than microscopy. Because antigens are shed continuously, repeat testing is rarely warranted. Feces 01/28/2025 9:27 PM EDT 01/28/2025 10:07 PM EDT Comment:F Ruby Chiang MD MICROBIOLOGY - GENERAL ORDERAB LES Final Result Performing Organization Address City/[facility]/ZIP Co de Phone Number [facility] [address] [facility]. [address] * Ova and Parasite Comprehensive w/Giardia (Feces) (01/28/2025 9:27 PM EDT) [facility] O & P Method: Concentration and Trichrome Stain [facility] Results No Amoeba, Ova, Or Parasites Seen. -- O and P examination of additional specimens is recommended only for symptomatic patients, immunosuppressed patients or those with an appropriate travel history. [facility] Feces FECES / Unknown 01/28/2025 9 :27 PM EDT 01/28/2025 10:07 PM EDT Comment:F Ruby Chiang MD MICROBIOLOGY - GENERAL ORDERAB LES Final Result Performing Organization Address [facility]/ZIP Co de Phone Number [facility] [address] [facility]. [address] * Clostridium Difficile Toxin A/B Antigen (01/28/2025 1:21 PM EDT) [facility] CDIFF Tox AGN Negative Negative 01/28/2025 10:35 PM EDT [facility] Comment:C. difficile nucleic acid testing is positive but toxin antigen testing is negative. Please note that antigen testing is less sensitive than nucleic acid testing and cannot distinguish disease from colonization. Interpret results with caution and in the context of the clinical presentation of the patient. Stool, Liquid 01/28/2025 1:2 1 PM EDT 01/28/2025 9:59 PM EDT Comment:F Feliciano Gomez CNP BODY FLUIDS AND STOOLS ORDERABL ES Final Result Performing Organization Address City/[facility]/ZIP Co de Phone Number [facility] [address] [facility]. [address] * (ABNORMAL) Clostridium difficile DNA Amplification (01/28/2025 1:21 PM EDT) [facility] Clost. Diff DNA Amp. Positive( A) Negative 01/28/2025 11:22 PM EDT [facility] Comment:Positive indicates t oxigenic C. difficile was detected in the sample. Negative indicates that toxigenic C. difficile was not detected above the limit of the detection of the assay. The test methodology is a FDA approved DNA amplification assay. Stool, Liquid FECES / Unknown 01/28/2025 1:21 PM EDT 01/28/2025 1:48 PM EDT Comment:F us Wgigins Jose Gomez FERTILIZER PROCESSING SUPERVISOR BODY FLUIDS AND STOOLS ORDERABL ES Final Result [facility] [address] [place], [place] [address] * Phosphatidylethanol Confirmation, B (01/28/2025 7:14 AM EDT) PETH 16:0/18.1 (POPETH) 394 Cutoff: 10 ng/mL 01/30/2025 9:58 AM EDT [facility] Comment: Phosphatidylethanol (PEth) [...] 2018 J. Forensic Sci) PETH 16:0/18.2 (PLPETH) 273 Cutoff: 10 ng/mL 01/30/2025 9:58 AM EDT [facility] Comment: PEth 16:0/18:2 (PLPEth) Reference ranges are not well established PEth Interpretation Positive. 01/30 9:58 AM EDT [facility] Comment: ADDITIONAL INFORMATION [...] Food and Drug Administration. Test Performed by: [facility] [address] [place] [address] Sugar Refiner: Kathy Ortiz Ph.D.; CLIA# [id number] Whole Blood 01/28/2025 7:14 AM EDT 01/30/2025 9:58 AM EDT Carlton Hill MD LAB BLOOD ORDERABLES Final Result Performing Organization Address City/[facility]/ZIP Co de Phone Number [facility] [address] * (ABNORMAL) Tacrolimus level (01/28/2025 7:14 AM EDT) Pathologist [facility] Tacrolimus (LC-MS) 16.4(H) 3.0 - 15.0 ng/mL 01/28/2025 12:41 PM EDT [facility] Comment:Performed via liquid chromatography tandem mass spectrometry. Detection limit: 1 ng/mL. Individual target concentrations may vary due to target organ and time after transplant. This test has been developed and its performance characteristics determined by [facility] which is certified under the Clinical Laboratory Improvement Amendment of 1988 (CLIA-88) to perform high complexity testing. The test has not been cleared or approved by the US Food and Drug Administration (FDA). The FDA has determined that such clearance is not necessary. The test should be used for clinical purposes and is not regarded as investigational. Whole Blood 01/28/2025 7:14 AM EDT 01/28/2025 8:22 AM EDT Carlton Hill MD LAB BLOOD ORDERABLES Final Result Performing Organization Address City/[facility]/ZIP Co de Phone Number [facility] [address] [facility]. [address] * Renal Function Panel w/EGFR (01/28/2025 7:14 AM EDT) Sodium 138 133 - 146 mmol/L 01/28/2025 9:00 AM EDT [facility] Potassium 3.7 3.5 - 5.3 mmol/L 01/28/2025 9:00 AM EDT [facility] Chloride 102 98 - 110 mmol/L 01/28/2025 9:00 AM EDT [facility] CO2 26 21 - 33 mmol/L 01/28/2025 9:00 AM EDT [facility] Anion Gap 10 3 - 16 mmol/L 01/28/2025 9:00 AM EDT [facility] BUN 17 7 - 25 mg/dL 01/28/2025 9:00 AM EDT [facility] Creatinine 1.14 0.60 - 1.30 mg/dL 01/28/2025 9:00 AM EDT [facility] Glucose 91 70 - 100 mg/dL 01/28/2025 9:00 AM EDT [facility] Calcium 9.3 8.6 - 10.3 mg/dL 01/28/2025 9:00 AM EDT [facility] Phosphorus 4.4 2.1 - 4.7 mg/dL 01/28/2025 9:00 AM EDT [facility] Albumin 4.2 3.5 - 5.7 g/dL 01/28/2025 9:00 AM EDT [facility] Osmolality, Calculated 287 278 - 305 mOsm/kg 01/28/2025 9:00 AM EDT [facility] EGFR 83 01/28/2025 9:00 AM EDT [facility] Comment:As of 2021, the estimated [...] Disease. Am J Kidney Dis. 2020. Plasma 01/28/2025 7:14 AM EDT 01/28/2025 8:22 AM EDT us Ali Aneudy Yamani MD LAB BLOOD ORDERABLES Final Result [facility] [address] * (ABNORMAL) Hepatic Function Panel (01/28/2025 7:14 AM EDT) Total Bilirubin 0.8 0.0 - 1.5 mg/dL 01/28/2025 9:00 AM EDT [facility] Bilirubin, Direct 0.14 0.00 - 0.40 mg/dL 01/28/2025 9:00 AM EDT [facility] AST 17 13 - 39 U/L 01/28/2025 9:00 AM EDT [facility] ALT 19 7 - 52 U/L 01/28/2025 9:00 AM EDT [facility] Alkaline Phosphatase 45 36 - 125 U/L 01/28/2025 9:00 AM EDT [facility] Total Protein 6.2(L) 6.4 - 8.9 g/dL 01/28/2025 9:00 AM EDT [facility] Albumin 4.2 3.5 - 5.7 g/dL 01/28/2025 9:00 AM EDT [facility] Bilirubin, Indirect 0.66 0.00 - 1.10 mg/dL 01/28/2025 9:00 AM EDT [facility] Plasma 01/28/2025 7:14 AM EDT 01/28/2025 8:22 AM EDT Carlton Hill MD LAB BLOOD ORDERABLES Final Result [facility] [address] [facility]. [address] * (ABNORMAL) Magnesium (01/28/2025 7:14 AM EDT) Magnesium 1.1(L) 1.5 - 2.5 mg/dL 01/28/2025 9:00 AM EDT [facility] Plasma 01/28/2025 7:14 AM EDT 01/28/2025 8:22 AM EDT Carlton Hill MD LAB BLOOD ORDERABLES Final Result [facility] [address] * (ABNORMAL) CBC (01/28/2025 7:14 AM EDT) WBC 2.0(L) 3.8 - 10.8 10E3/uL 01/28/2025 9:10 AM EDT [facility] RBC 3.36(L) 4.20 - 5.80 10E6/uL 01/28/2025 9:10 AM EDT [facility] Hemoglobin 11.5(L) 13.2 - 17.1 g/dL 01/28/2025 9:10 AM EDT [facility] Hematocrit 31.0(L) 38.5 - 50.0 % 01/28/2025 9:10 AM EDT [facility] MCV 92.4 80.0 - 100.0 fL 01/28/2025 9:10 AM EDT [facility] MCH 34.2(H) 27.0 - 33.0 pg 01/28/2025 9:10 AM EDT [facility] MCHC 37.0(H) 32.0 - 36.0 g/dL 01/28/2025 9:10 AM EDT [facility] RDW 14.9 11.0 - 15.0 % 01/28/2025 9:10 AM EDT [facility] Platelets 86(L) 140 - 400 10E3/uL 01/28/2025 9:10 AM EDT [facility] MPV 6.2(L) 7.5 - 11.5 fL 01/28/2025 9:10 AM EDT [facility] Whole Blood 01/28/2025 7:14 AM EDT 01/28/2025 8:22 AM EDT Carlton Hill MD LAB BLOOD ORDERABLES Final Result [facility] [address] * CT Head WO contrast (01/28/2025 12:35 AM EDT) Anatomical Region Laterality Modality Head Computed Tomogra phy 01/28/2025 12:3 3 AM EDT Impressions 01/28/2025 1:39 AM EDT IMPRESSION: 1. No intracranial mass effect or hemorrhage. 2. No acute intracranial abnormality. Approved by Joanne Landry MD on 01/28/2025 1:21 AM EDT I have personally reviewed the images and I agree with this report. Report Verified by: Cody Benz MD at 01/28/2025 1:39 AM EDT Narrative 01/28/2025 1:39 AM EDT EXAM: CT HEAD WO CONTRAST INDICATION: headache TECHNIQUE: Axial thin section CT images of the head were obtained without contrast. Sagittal and coronal 2-D multiplanar reconstructions were performed at the scanner. COMPARISON: CT head dated 10/06/2024. FINDINGS: Brain parenchyma: Normal brain attenuation. Ventricles and extraaxial spaces: Normal ventricular system. No extra-axial fluid collection. Orbits, paranasal sinuses, mastoids: No acute orbital abnormality. Clear paranasal sinuses. Clear mastoid air cells. Unchanged right nasal septal deviation with nasal spur. Extracranial soft tissues: Similar-appearing areas of mild stranding in the high convexity scalp favored to be scarring Calvarium and skull base: No fracture or suspicious osseous lesion. Procedure Note Cody Benz MD - 01/28/2025 EXAM: CT HEAD WO CONTRAST INDICATION: headache TECHNIQUE: Axial thin section CT images of the head were obtained withoutcontrast. Sagittal and coronal 2-D multiplanar reconstructions wereperformed at the scanner. COMPARISON: CT head dated 10/06/2024. FINDINGS: Brain parenchyma: Normal brain attenuation. Ventricles and extraaxial spaces: Normal ventricular system. Noextra-axial fluid collection. Orbits, paranasal sinuses, mastoids: No acute orbital abnormality. Clearparanasal sinuses. Clear mastoid air cells. Unchanged right nasal septaldeviation with nasal spur. Extracranial soft tissues: Similar-appearing areas of mild stranding inthe high convexity scalp favored to be scarring Calvarium and skull base: No fracture or suspicious osseous lesion. IMPRESSION: 1. No intracranial mass effect or hemorrhage. 2. No acute intracranial abnormality. Approved by Joanne Landry MD on 01/28/2025 1:21 AM EDT I have personally reviewed the images and I agree with this report. Report Verified by: Cody Benz MD at 01/28/2025 1:39 AM EDT Shelby Blanco MD IMG CT ORDERABLES Final Result * Enteric Pathogen Panel (01/27/2025 9:30 PM EDT) Campylobacter Group (C. ecoli, C. jejuni, C. trino) Not Detected Not Detected 01/28/2025 3:11 AM EDT [facility] Salmonella species Not Detected Not Detected 01/28/2025 3:11 AM EDT [facility] Shigella species Not Detected Not Detected 01/28/2025 3:11 AM EDT [facility] Vibrio Group (Vibrio cholerae, Vibrio parahaemolyticus) Not Detected Not Detected 01/28/2025 3:11 AM EDT [facility] Yersinia enterocolitica Not Detected Not Detected 01/28/2025 3:11 AM EDT [facility] Shiga toxin 1 Not Detected Not Detected 01/28/2025 3:11 AM EDT [facility] Shiga toxin 2 Not Detected Not Detected 01/28/2025 3:11 AM EDT [facility] Norovirus Not Detected Not Detected 01/28/2025 3:11 AM EDT [facility] Rotavirus Not Detected Not Detected 01/28/2025 3:11 AM EDT [facility] Comment: The Enteric Pathogen Panel is [...] the micro laboratory. Feces FECES / Unknown 01/27/2025 9 :30 PM EDT 01/27/2025 10:20 PM EDT Comment:F Shelby Blanco MD BODY FLUIDS AND STOOLS ORDERABLE S Final Result [facility] [address] [place] [address], [facility] * Respiratory viral panel (01/27/2025 9:30 PM EDT) Adenovirus Not Detected Not Detected 01/28/2025 12:20 AM EDT [facility] Coronavirus (229E,HKU1,NL63,OC 43) Not Detected Not Detected 01/28/2025 12:20 AM EDT [facility] SARS-CoV-2 Not Detected Not Detected 01/28/2025 12:20 AM EDT [facility] Human Metapneumovirus Not Detected Not Detected 01/28/2025 12:20 AM EDT [facility] Human Rhinovirus/Enterov irus Not Detected Not Detected 01/28/2025 12:20 AM EDT [facility] Influenza A Not Detected Not Detected 01/28/2025 12:20 AM EDT [facility] Influenza A H1 Not Detected Not Detected 01/28/2025 12:20 AM EDT [facility] Influenza A/H1-2009 Not Detected Not Detected 01/28/2025 12:20 AM EDT [facility] Influenza A H3 Not Detected Not Detected 01/28/2025 12:20 AM EDT [facility] Influenza B Not Detected Not Detected 01/28/2025 12:20 AM EDT [facility] Parainfluenza 1 Not Detected Not Detected 01/28/2025 12:20 AM EDT [facility] Parainfluenza 2 Not Detected Not Detected 01/28/2025 12:20 AM EDT [facility] Parainfluenza 3 Not Detected Not Detected 01/28/2025 12:20 AM EDT [facility] Parainfluenza 4 Not Detected Not Detected 01/28/2025 12:20 AM EDT [facility] Resp. Syncycial Virus A Not Detected Not Detected 01/28/2025 12:20 AM EDT [facility] Resp. Syncycial Virus B Not Detected Not Detected 01/28/2025 12:20 AM EDT [facility] [facility] Chlamydia pneumoniae Not Detected Not Detected 01/28/2025 12:20 AM EDT [facility] Mycoplasma pneumoniae Not Detected Not Detected 01/28/2025 12:20 AM EDT [facility] Comment: The Respiratory Viral-Bacterial Panel [...] results have been sent to the [facility] in accordance with state requirements. For a fact sheet for healthcare providers, see https://www.fda.gov/media/318440/download. For a fact sheet for patients, see https://www.fda.gov/media/668522/download. Nasopharyngeal Swab NASOPHARYNGEAL STRUCTURE / Unknown 01/27/2025 9:30 PM EDT 01/27/2025 10:20 PM EDT us Shelby Blanco MD BODY FLUIDS AND STOOLS ORDERABLE S Final Result [facility] [address] [place] [address], [facility] * Lactic acid, venous, whole blood (01/27/2025 9:30 PM EDT) Lactate, Shakeel 1.4 0.5 - 1.6 mmol/L 01/27/2025 9:42 PM EDT [facility] Blood, Venous 01/27/2025 9:3 0 PM EDT 01/27/2025 9:39 PM EDT Pamela JACOME LAB BLOOD ORDERABLES Final Res ult Performing Organization Address City/[facility]/ZIP Co de Phone Number [facility] [id number] [facility]. [address] * (ABNORMAL) Urinalysis, Microscopic (01/27/2025 8:44 PM EDT) RBC, UA <1 0 - 3 /HPF 01/27/2025 9:32 PM EDT [facility] WBC, UA 1 0 - 5 /HPF 01/27/2025 9:32 PM EDT [facility] Hyaline Casts, UA 75(H) 0 - 2 /LPF 01/27/2025 9:32 PM EDT [facility] Mucus, UA Present(A) None Seen /HPF 01/27/2025 9:32 PM EDT [facility] Urine 01/27/2025 8:44 PM EDT 01/27/2025 9:01 PM EDT Pamela JACOME URINE ORDERABLES Final Result Performing Organization Address [facility] Co de Phone Number [facility] [address] [facility]. [address] * Strep Pneumo-Legionella Urine Antigen (01/27/2025 8:44 PM EDT) Strept Pneumo Ag Negative Negative 01/27/2025 11:12 PM EDT [facility] Legionella Antigen Negative Negative 01/27/2025 11:12 PM EDT [facility] Urine URINE SPECIMEN / Unknown 01/27/2025 8:44 PM EDT 01/27/2025 10:21 PM EDT Narrative [facility] - 01/27/2025 11:12 PM EDT Positive indicates detection of either Streptococcus pneumoniae antigen or Legionella pneumophila serogroup 1 antigen. Negative results do not rule out pneumococcal infection or infection with L. pneumophila serogroup 1, other serogroups of L. pneumophila, or other Legionella species. Shelby Blanco MD URINE ORDERABLES Final Result Performing Organization Address [facility] de Phone Number [facility] [address] * Histoplasma/Blastomyces Ag, EIA, U (01/27/2025 8:44 PM EDT) Histoplasma/Blasto myces Ag Result (Urine) Not Detected Not Detected 01/31/2025 11:06 AM EDT [facility] Comment: No antigen from Histoplasma or Blastomyces detected. False negative results may occur depending on extent of disease, and/or site of infection. Repeat testing on a new specimen if clinically indicated. Histoplasma/Blasto myces Ag Value (Urine) Not Detected ng/mL 01/31/2025 11:06 AM EDT [facility] Comment: ADDITIONAL INFORMATION This test was developed and its performance characteristics determined by [facility] in a manner consistent with CLIA requirements. This test has not been cleared or approved by the U.S. Food and Drug Administration. Test Performed by: [facility] [place] [address] Sugar Refiner: Kathy Ortiz Ph.D.; CLIA# [id number] Urine URINE SPECIMEN / Unknown 01/27/2025 8:44 PM EDT 01/31/2025 11:06 AM EDT Shelby Blanco MD URINE ORDERABLES Final Result Performing Organization Address [facility] Co de Phone Number [facility] [address] [facility]. [address] * (ABNORMAL) Urinalysis-Macroscopic w/Rfx to Microsco (01/27/2025 8:44 PM EDT) Color, UA Yellow Yellow,Straw 01/27/2025 9:32 PM EDT [facility] Clarity, UA Clear Clear 01/27/2025 9:32 PM EDT [facility] Specific [place], UA 1.015 1.005 - 1.035 01/27/2025 9:32 PM EDT [facility] pH, UA 5.5 5.0 - 8.0 01/27/2025 9:32 PM EDT [facility] Protein, UA 30(A) Negative mg/dL 01/27/2025 9:32 PM EDT [facility] Glucose, UA Negative Negative mg/dL 01/27/2025 9:32 PM EDT [facility] Ketones, UA 20(A) Negative mg/dL 01/27/2025 9:32 PM EDT [facility] Bilirubin, UA Negative Negative 01/27/2025 9:32 PM EDT [facility] Blood, UA Negative Negative 01/27/2025 9:32 PM EDT [facility] Nitrite, UA Negative Negative 01/27/2025 9:32 PM EDT [facility] Urobilinogen, UA <2.0 0.2 - 1.9 mg/dL 01/27/2025 9:32 PM EDT [facility] Leukocyte Esterase, UA Negative Negative 01/27/2025 9:32 PM EDT [facility] Urine 01/27/2025 8:44 PM EDT 01/27/2025 8:53 PM EDT us Pamela JACOME URINE ORDERABLES Final Result [facility] [address] * Phosphatidylethanol Confirmation, B (01/27/2025 8:20 PM EDT) PETH 16:0/18.1 (POPETH) 446 Cutoff: 10 ng/mL 01/30/2025 9:59 AM EDT [facility] Comment: Phosphatidylethanol (PEth) homologues result [...] 2018 J. Forensic Sci) PETH 16:0/18.2 (PLPETH) 336 Cutoff: 10 ng/mL 01/30/2025 9:59 AM EDT [facility] Comment: PEth 16:0/18:2 (PLPEth) Reference ranges are not well established PEth Interpretation Positive. 01/30 9:59 AM EDT [facility] Comment: ADDITIONAL INFORMATION This report [...] Performed by: [facility] [place] [address] Sugar Refiner: Kathy Ortiz Ph.D.; CLIA# [id number] Whole Blood 01/27/2025 8:20 PM EDT 01/30/2025 9:59 AM EDT us Shelby Blanco MD LAB BLOOD ORDERABLES Final Resul t [facility] [address] * BK PCR, Blood (Renal Txp and BMT only) (01/27/2025 8:20 PM EDT) BKV IU DNA Quant, Blood Not Detected IU/mL 01/29/2025 1:48 PM EDT [facility] Comment: Beginning August 23, 2021, [facility] has transitioned BK viral load testing from a lab developed test reporting in copies/ml to an FDA-approved assay reporting in IU/ml. Based on verification data, results are expected to be 0.63 log lower than the previous assay for plasma specimens. For more information about this change, contact the microbiology laboratory. Test methodology for BKV quantification is an FDA-approved nucleic acid amplification assay. The Lower Limit of Quantitation (LLOQ) is 21.5 IU/mL; the linear range is 21.5 - 100,000,000 IU/mL. The Limit of Detection (LoD) is 21.5 IU/mL. The reference range is Not Detected. BKV IU DNA Log, Blood See Note log 10 IU/mL 01/29/2025 1:48 PM EDT [facility] Comment:BKV DNA Not Detected Plasma 01/27/2025 8:20 PM EDT 01/27/2025 9:49 PM EDT us Shelby Blanco MD LAB BLOOD ORDERABLES Final Resul t [facility] [address] [place] [address], [facility] * Histoplasma/Blastomyces Ag, EIA, S (01/27/2025 8:20 PM EDT) Histoplasma/Blasto myces Ag Result (Serum) Not Detected Not Detected 01/30/2025 12:49 PM EDT [facility] Comment: No antigen from Histoplasma or Blastomyces detected. False negative results may occur depending on extent of disease, and/or site of infection. Repeat testing on a new specimen if clinically indicated. Histoplasma/Blasto myces Ag Value (Serum) Not Detected ng/mL 01/30/2025 12:49 PM EDT [facility] Comment: ADDITIONAL INFORMATION This test was developed and its performance characteristics determined by [facility] in a manner consistent with CLIA requirements. This test has not been cleared or approved by the U.S. Food and Drug Administration. Test Performed by: [facility] - [address] [address] Sugar Refiner: Kathy Ortiz Ph.D.; CLIA# [id number] Serum SERUM SPECIMEN / Unknown 01/27/2025 8:20 PM EDT 01/30/2025 12:49 PM EDT Comment:S us Shelby Blanco MD LAB BLOOD ORDERABLES Final Resul t [facility] [address] [place] [address], [facility] * Fungitell (01/27/2025 8:20 PM EDT) Fungitell Value <31.25 pg/mL 4:19 PM EDT [facility] Reference Value Comment 4:19 PM EDT [facility] Comment:Negative: <60, Posit bradley: >/=60 Clinical Relevance Notes 2024 4:19 PM EDT [facility] Comment: The Fungitell test is indicated for presumptive diagnosis of fungal infection and should be used in conjunction with other diagnostic procedures. The test detects glucan from the following pathogens: Keesha spp., Acremonium, Aspergillus spp., Coccidioides immitis, Fusarium spp., Histoplasma capsulatum, Trichosporon spp., Sporothrix schenckii, Saccharomyces cerevisiae, and Pneumocystis jiroveci. This test does not detect certain fungal species such as Cryptococcus, which produce very low levels of (1,3)-yfuy-I-texuxc. This test will not detect the zygomycetes, such as Absidia, Blastomyces, Mucor, and Rhizopus, which are not known to produce (1,3)-otlk-X-fsicyz. In addition, the yeast phase of Blastomyces dermatitidis produces little (1,3)-irgc-I-rvyxfz and may not be detected by the assay. Disclaimer: Notes 02/02/2025 4:19 PM EDT [facility] Comment: This test has been cleared or approved for diagnostic use by the U.S. Food and Drug Administration. Performance characteristics were verified by [employer]. Electronically signed by: Comment 02/02/2025 4:19 PM EDT [facility] Comment:Usha Landin Fungitell Result Comment 02/03/20 4:19 PM EDT [facility] Comment:Negative Interpretation Notes 02/02/2025 4:19 PM EDT [facility] Comment: (1,3) Xajm-F-Rszzph was NOT DETECTED in the sample. Reasons for negative results could include the patient being in the early stage of infection before detectable levels of (1,3) Cdta-F-Riibph are present. Clinical diagnosis should be made in the context of the patient's complete medical history. Serum 01/27/2025 8:20 PM EDT 02/02/2025 5:07 PM EDT Narrative [facility] - 02/02/2025 5:07 PM EDT PERFORMED AT: [facility] [address] [place], [place] [id number] [address] SERVICE: Cyril Porter, PhD PHONE: [phone] us Shelby Blanco MD LAB BLOOD ORDERABLES Final Resul t [facility] [address] * Katie-Schafer Virus (EBV) PCR (01/27/2025 8:20 PM EDT) [facility] EBV DNA, Quantitative PCR Not Detected IU/mL 01/28/2025 10:54 AM EDT [facility] EBV DNA, Log10 See Note log 10 IU/mL 01/28/2025 10:54 AM EDT [facility] Comment: Beginning September 05, 2022, [facility] has transitioned EBV viral load testing to a new assay that is performed on plasma rather than whole blood. Based on verification data, results are expected to be 0.8 log lower than the previous assay. As there was significant variation in this value, consider re-baselining any patients being followed longitudinally if clinically relevant. For more information about this change, contact the microbiology laboratory. Test methodology for EB VIRUS QUANTITATIVE BY PCR, BLOOD quantification is an FDA-approved nucleic acid amplification assay. The Lower Limit of Quantitation (LLOQ) is 35.0 IU/mL for EDTA plasma. The linear range of the assay is 35.0-100,000,000 IU/mL. The Limit of Detection (LoD) is 18.8 IU/mL. The reference range is Not Detected. EBV DNA Not Detected Plasma 01/27/2025 8:20 PM EDT 01/27/2025 9:49 PM EDT Shelby Blanco MD LAB BLOOD ORDERABLES Final Resul t [facility] [address] [facility]. [address] * Cryptococcus Ag (01/27/2025 8:20 PM EDT) Crypto Ag, Ser Negative Negative 01/27/2025 11:41 PM EDT [facility] Crypto Ag Titer, Ser Not Applicable 01/27/2025 11:41 PM EDT [facility] Serum SERUM SPECIMEN / Unknown 01/27/2025 8:20 PM EDT 01/27/2025 10:04 PM EDT Comment:S Shelby Blanco MD LAB BLOOD ORDERABLES Final Resul t Performing Organization Address City/[facility]/ZIP Co de Phone Number [facility] [address] [facility]. [address] * Cytomegalovirus (CMV) PCR (01/27/2025 8:20 PM EDT) CMV DNA Qnt Not Detected IU/mL 01/29/2025 12:09 PM EDT [facility] Comment:Test methodology for CMV DNA quantification is an FDA-approved nucleic acid amplification assay. The Lower Limit of Quantitation (LLOQ) and Limit of Detection (LoD) for EDTA plasma is 34.5 IU/mL. The linear range of the assay is 34.5- 10,000,000 IU/mL. The reference range is Not Detected. Log10 CMV Qn DNA PI See Note log 10 IU/mL 01/29/2025 12:09 PM EDT [facility] Comment:CMV DNA not detected Plasma 01/27/2025 8:20 PM EDT 01/27/2025 9:49 PM EDT Shelby Blanco MD LAB BLOOD ORDERABLES Final Resul t [facility] [address] [facility]. [address] * Fungus culture, blood (Blood) (01/27/2025 8:20 PM EDT) Culture Result No Fungus Isolated At 4 Weeks [facility] Blood SERUM SPECIMEN / Unknown 01/27/2025 8:20 PM EDT 01/27/2025 9:50 PM EDT Comment:S Shelby Blanco MD MICROBIOLOGY - GENERAL ORDERABLE S Final Result [facility] [address] [facility]. [address] * Blood Culture, Acid Fast (Blood) (01/27/2025 8:20 PM EDT) Culture Result Culture Negative For Mycobacteria At 6 Weeks [facility] Blood SERUM SPECIMEN / Unknown 01/27/2025 8:20 PM EDT 01/27/2025 9:50 PM EDT Comment:S Shelby Blanco MD MICROBIOLOGY - GENERAL ORDERABLE S Final Result Performing Organization Address City/[facility]/ZIP Co de Phone Number [facility] [address] [place] [address]. [address] * Aspergillus Ag (01/27/2025 8:20 PM EDT) Aspergillus Ag. 0.03 0.00 - 0.49 Index 01/30/2025 5:54 PM EDT [facility] Serum SERUM SPECIMEN / Unknown 01/27/2025 8:20 PM EDT 01/31/2025 4:23 AM EDT Comment:S Shelby Blanco MD BODY FLUIDS AND STOOLS ORDERABLE S Final Result Performing Organization Address City/[facility]/ZIP Co de Phone Number [facility] [address] [place] [address] * Adenovirus PCR (01/27/2025 8:20 PM EDT) Adenovirus, Quantitative PCR 0 0 - 0 copies/mL 02/03/2025 1:12 PM EDT [facility] Comment: Testing performed by [facility], [address] [place] [address], [place], [place]. This test(s) was developed and its performance characteristics determined and validated by the Department of Pathology and Laboratory Medicine at [facility]. It has not been cleared or approved by the U.S. Food and Drug Administration. The FDA has determined that such clearance is not necessary. This laboratory is certified under the Clinical Laboratory Improvement Amendments of 1988 (CLIA-88) as qualified to perform high-complexity laboratory testing. In quantitative analysis of Adenovirus, clinical correlation in specimens other than whole blood is unknown. Whole Blood 01/27/2025 8:20 PM EDT 02/03/2025 1:12 PM EDT Shelby Blanco MD LAB BLOOD ORDERABLES Final Resul t Performing Organization Address City/[facility]/ZIP Co de Phone Number [address] * Blood culture-Peripheral (Blood) (01/27/2025 8:20 PM EDT) Culture Result No Growth After 5 Days [facility] Blood BLOOD SPECIMEN / Unknown 01/27/2025 8:20 PM EDT 01/27/2025 9:57 PM EDT Pamela JACOME MICROBIOLOGY - GENERAL ORDERAB LES Final Result Performing Organization Address City/[facility]/ZIP Co de Phone Number [facility] [address] [place] [address]. [address] * Blood culture-Peripheral (Blood) (01/27/2025 8:20 PM EDT) Culture Result No Growth After 5 Days [facility] Blood BLOOD SPECIMEN / Unknown 01/27/2025 8:20 PM EDT 01/27/2025 9:58 PM EDT Pamela JACOME MICROBIOLOGY - GENERAL ORDERAB LES Final Result [facility] [address] [facility]. [address] * (ABNORMAL) Lipase (01/27/2025 8:20 PM EDT) Lipase 3(L) 4 - 82 U/L 01/27/2025 9:0 3 PM EDT [facility] Plasma 01/27/2025 8:20 PM EDT 01/27/2025 8:34 PM EDT Pamela JACOME LAB BLOOD ORDERABLES Final Res ult Performing Organization Address City/[facility]/ZIP Co de Phone Number [facility] [address] [facility]. [address] * Hepatic Function Panel (01/27/2025 8:20 PM EDT) Total Bilirubin 0.9 0.0 - 1.5 mg/dL 01/27/2025 9:03 PM EDT [facility] Bilirubin, Direct 0.1 0.0 - 0.4 mg/dL 01/27/2025 9:03 PM EDT [facility] AST 20 13 - 39 U/L 01/27/2025 9:03 PM EDT [facility] ALT 26 7 - 52 U/L 01/27/2025 9:03 PM EDT [facility] Alkaline Phosphatase 55 36 - 125 U/L 01/27/2025 9:03 PM EDT [facility] Total Protein 7.0 6.4 - 8.9 g/dL 01/27/2025 9:03 PM EDT [facility] Albumin 5.0 3.5 - 5.7 g/dL 01/27/2025 9:03 PM EDT [facility] Bilirubin, Indirect 0.8 0.0 - 1.1 mg/dL 01/27/2025 9:03 PM EDT [facility] Plasma 01/27/2025 8:20 PM EDT 01/27/2025 8:34 PM EDT Pamela JACOME LAB BLOOD ORDERABLES Final Res ult [facility] [address] [place] [address], [facility] * (ABNORMAL) Differential (01/27/2025 8:20 PM EDT) Differential Comments See Note 01/27/2025 10:02 PM EDT [facility] Comment: _Platelets Appear Decreased _Platelet Morphology Normal Scan Result PERFORMED 01/27/2025 10:02 PM EDT [facility] Neutrophils Relative 50.9 40.0 - 80.0 % 01/27/2025 10:02 PM EDT [facility] Lymphocytes Relative 39.0 15.0 - 45.0 % 01/27/2025 10:02 PM EDT [facility] Monocytes Relative 7.3 0.0 - 12.0 % 01/27/2025 10:02 PM EDT [facility] Eosinophils Relative 1.3 0.0 - 8.0 % 01/27/2025 10:02 PM EDT [facility] Basophils Relative 1.5(H) 0.0 - 1.0 % 01/27/2025 10:02 PM EDT [facility] nRBC 1(H) 0 - 0 /100 WBC 01/27/2025 10:02 PM EDT [facility] Neutrophils Absolute 1,018(L) 1,520 - 8,640 /uL 01/27/2025 10:02 PM EDT [facility] Lymphocytes Absolute 780 570 - 4,860 /uL 01/27/2025 10:02 PM EDT [facility] Monocytes Absolute 146 0 - 1,296 /uL 01/27/2025 10:02 PM EDT [facility] Eosinophils Absolute 26 0 - 864 /uL 01/27/2025 10:02 PM EDT [facility] Basophils Absolute 30 0 - 108 /uL 01/27/2025 10:02 PM EDT [facility] PLT Morphology Platelet morphology appears normal 01/27/2025 10:02 PM EDT [facility] Whole Blood 01/27/2025 8:20 PM EDT 01/27/2025 8:57 PM EDT Pamela JACOME LAB BLOOD ORDERABLES Final Res ult [facility] [address] [place] [id number], [facility] * (ABNORMAL) CBC (01/27/2025 8:20 PM EDT) WBC 2.0(L) 3.8 - 10.8 10E3/uL 01/27/2025 10:02 PM EDT [facility] RBC 3.81(L) 4.20 - 5.80 10E6/uL 01/27/2025 10:02 PM EDT [facility] Hemoglobin 12.7(L) 13.2 - 17.1 g/dL 01/27/2025 10:02 PM EDT [facility] Hematocrit 35.1(L) 38.5 - 50.0 % 01/27/2025 10:02 PM EDT [facility] MCV 92.2 80.0 - 100.0 fL 01/27/2025 10:02 PM EDT [facility] MCH 33.3(H) 27.0 - 33.0 pg 01/27/2025 10:02 PM EDT [facility] MCHC 36.1(H) 32.0 - 36.0 g/dL 01/27/2025 10:02 PM EDT [facility] RDW 14.7 11.0 - 15.0 % 01/27/2025 10:02 PM EDT [facility] Platelets 109(L) 140 - 400 10E3/uL 01/27/2025 10:02 PM EDT [facility] Platelet Estimate Decreased 01/27/2025 10:02 PM EDT [facility] MPV 6.4(L) 7.5 - 11.5 fL 01/27/2025 10:02 PM EDT [facility] Whole Blood 01/27/2025 8:20 PM EDT 01/27/2025 8:57 PM EDT Narrative [facility] - 01/27/2025 10:02 PM EDT Peripheral blood smear was scanned per review criteria approved by the laboratory emergency medical dispatcher. Pamela JACOME LAB BLOOD ORDERABLES Final Res ult [facility] [address] [facility]. [address] * Hemoglobin A1c (01/27/2025 8:20 PM EDT) Hemoglobin A1C 4.0 4.0 - 5.6 % 01/27/2025 11:49 PM EDT [facility] Comment: Hemoglobin A1c Interpretation Guidelines: [...] and other individual patient considerations. Whole Blood 01/27/2025 8:20 PM EDT 01/27/2025 8:57 PM EDT Narrative [facility] - 01/27/2025 11:49 PM EDT A1C project?->Yes us Pamela JACOME LAB BLOOD ORDERABLES Final Res ult [facility] [address] * Basic metabolic panel (01/27/2025 8:20 PM EDT) Sodium 136 133 - 146 mmol/L 01/27/2025 9:03 PM EDT [facility] Potassium 4.0 3.5 - 5.3 mmol/L 01/27/2025 9:03 PM EDT [facility] Chloride 100 98 - 110 mmol/L 01/27/2025 9:03 PM EDT [facility] CO2 25 21 - 33 mmol/L 01/27/2025 9:03 PM EDT [facility] Anion Gap 11 3 - 16 mmol/L 01/27/2025 9:03 PM EDT [facility] BUN 16 7 - 25 mg/dL 01/27/2025 9:03 PM EDT [facility] Creatinine 1.02 0.60 - 1.30 mg/dL 01/27/2025 9:03 PM EDT [facility] Glucose 93 70 - 100 mg/dL 01/27/2025 9:03 PM EDT [facility] Calcium 9.7 8.6 - 10.3 mg/dL 01/27/2025 9:03 PM EDT [facility] Osmolality, Calculated 283 278 - 305 mOsm/kg 01/27/2025 9:03 PM EDT [facility] EGFR >90 01/27/2025 9:03 PM EDT [facility] Comment: As of 2021, the estimated GFR is calculated [...] Kidney Disease. Am J Kidney Dis. 2020. GFR is estimated using creatinine, age, and sex. Patient's values should be interpreted as a trend. Below 90 mL/min/1.73m2, the patient may have renal disease. For additional information: www.kidney.org Plasma 01/27/2025 8:20 PM EDT 01/27/2025 8:34 PM EDT us Pamela Wiggins PA LAB BLOOD ORDERABLES Final Res ult [facility] [address] [place], [place] [address] * X-ray Chest PA and Lateral (01/27/2025 7:02 PM EDT) Anatomical Region Laterality Modality Chest Radiographic Rachel ging 01/27/2025 6:49 PM EDT Impressions 01/27/2025 7:13 PM EDT IMPRESSION: No acute cardiopulmonary abnormality. Report Verified by: Jean English MD at 01/27/2025 7:13 PM EDT Narrative 01/27/2025 7:13 PM EDT EXAM: XR CHEST PA AND LATERAL INDICATION: Fever, unspecified TECHNIQUE: 2 views of the chest. COMPARISON: 10/27/2024 FINDINGS: Medical Devices: None. Heart and Mediastinum: Cardiomediastinal silhouette is within normal limits. Lungs and Pleura: Lungs are clear with no pleural effusions or evidence of pneumothorax. Bones and Soft tissues: No acute abnormalities. Procedure Note Jean English MD - 01/27/2025 EXAM: XR CHEST PA AND LATERAL INDICATION: Fever, unspecified TECHNIQUE: 2 views of the chest. COMPARISON: 10/27/2024 FINDINGS: Medical Devices: None. Heart and Mediastinum: Cardiomediastinal silhouette is within normallimits. Lungs and Pleura: Lungs are clear with no pleural effusions or evidence ofpneumothorax. Bones and Soft tissues: No acute abnormalities. IMPRESSION: No acute cardiopulmonary abnormality. Report Verified by: Jean English MD at 01/27/2025 7:13 PM EDT Pamela JACOME IMG DIAGNOSTIC IMAGING ORDERAB LES Final Result documented in this encounter Visit Diagnoses Diagnosis Diarrhea of presumed infectious origin- Primary Immunosuppression ([facility]) documented in this encounter Administered Medications Inactive Administered Medications - up to 3 most recent administrations Medication Order MAR Action Action Date Dose Rate Site acetaminophen (TYLENOL) tablet 975 mg 975 mg, Oral, Every 8 hours PRN, mild pain (NRS 1-3); no comparable CPOT score, Starting on Sun01/27/25 at 2326, Maximum dose of acetaminophen is 4000 mg (4 grams) from all sources in 24 hours. Given 01/29/2025 11:52 PM EDT 975 mg Given 01/29/2025 3:29 PM EDT 975 mg Given 01/29/2025 1:25 AM EDT 975 mg cyclobenzaprine (FLEXERIL) tablet 5 mg 5 mg, Oral, 3 times daily, First dose on Sun01/28/25 at 1300 Given 01/30/2025 12:35 PM EDT 5 mg Given 01/30/2025 9:33 AM EDT 5 mg Given 01/29/2025 11:52 PM EDT 5 mg dextrose 5 % and 0.45 % NaCl with KCl 20 mEq infusion 1000 mL 50 mL/hr, Intravenous, Continuous, Starting on Sun01/27/25 at 2339 New Bag 01/28/2025 12:11 AM EDT 50 mL/hr 50 mL/hr electrolyte-R (pH 7.4) (NORMOSOL-R pH 7.4) IV solution 75 mL/hr, Intravenous, Continuous, Starting on Sun01/29/25 at 1230 New Bag 01/30/2025 12:36 AM EDT 75 mL/hr 75 mL/hr New Bag 01/29/2025 3:32 PM EDT 75 mL/hr 75 mL/hr electrolyte-R (pH 7.4) (NORMOSOL-R pH 7.4) IV solution 999 mL/hr, Intravenous, Continuous, Starting on Sun01/29/25 at 1400, For 1 hour New Bag 01/29/2025 3:33 PM EDT 999 mL/hr 999 mL/hr famotidine (PEPCID) tablet 20 mg 20 mg, Oral, 2 times daily, First dose on Sun01/27/25 at 2329 Given 01/30/2025 9:33 AM EDT 20 mg Given 01/29/2025 7:57 PM EDT 20 mg Given 01/29/2025 9:07 AM EDT 20 mg fidaxomicin (DIFICID) tablet 200 mg 200 mg, Oral, 2 times daily, First dose on Sun01/29/25 at 0030, May administer with or without food. Given 01/30/2025 9:33 AM EDT 200 mg Given 01/29/2025 7:57 PM EDT 200 mg Given 01/29/2025 9:07 AM EDT 200 mg FLUoxetine (PROZAC) capsule 20 mg 20 mg, Oral, Daily, First dose on Sun01/28/25 at 0900 Given 01/30/2025 9:33 AM EDT 20 mg Given 01/29/2025 9:07 AM EDT 20 mg Given 01/28/2025 8:24 AM EDT 20 mg gabapentin (NEURONTIN) capsule 100 mg 100 mg, Oral, 3 times daily, First dose on Sun01/27/25 at 2335 Given 01/30/2025 12:35 PM EDT 100 mg Given 01/30/2025 9:33 AM EDT 100 mg Given 01/29/2025 11:52 PM EDT 100 mg heparin (porcine) injection 5,000 Units 5,000 Units, Subcutaneous, Every 8 hours scheduled (3 times per day), First dose on Sun01/27/25 at 2259 levothyroxine (SYNTHROID) tablet 75 mcg 75 mcg, Oral, Every morning before breakfast, First dose on Sun01/28/25 at 0730, Please hold tube feeds 30 minutes before and 90 minutes after levothyroxine administration. Given 01/30/2025 6:21 AM E DT 75 mcg Given 01/29/2025 5:44 AM EDT 75 mcg Given 01/28/2025 6:47 AM EDT 75 mcg lidocaine (LIDODERM) 5 % 1 patch 1 patch, Transdermal, Daily, First dose on Sun01/28/25 at 0900, LEAVE PATCH ON FOR 12 HOURS,THEN REMOVE FOR 12 HOURS. Patch Applied 01/28/2025 8:27 AM EDT 1 patch Other magnesium sulfate in sterile water 100 mL IVPB 4 g 4 g, Intravenous, at 25 mL/hr, Once, On Sun01/28/25 at 1100, For 1 dose New 01/28/2025 12:29 PM EDT 4 g 25 mL/hr magnesium sulfate in sterile water 100 mL IVPB 4 g 4 g, Intravenous, at 25 mL/hr, Once, On Sun01/28/25 at 1500, For 1 dose New 01/28/2025 5:17 PM EDT 4 g 25 mL/hr magnesium sulfate in sterile water 50 mL IVPB 2 g 2 g, Intravenous, Administer over 120 Minutes, Once, On Sun01/30/25 at 0730, For 1 dose, For Mag 1.6 - 1.7 New Bag 01/30/2025 9:46 AM EDT 2 g 25 mL/hr methocarbamoL (ROBAXIN) tablet 1,000 mg 1,000 mg, Oral, 3 times daily, First dose on Sun01/27/25 at 2335 Given 01/30/2025 12:35 PM EDT 1,000 mg Given 01/30/2025 9:33 AM EDT 1,000 mg Given 01/29/2025 11:52 PM EDT 1,000 mg NIFEdipine (PROCARDIA-XL) 24 hr tablet 30 mg 30 mg, Oral, Daily, First dose on Sun01/28/25 at 0900, DO NOT CRUSH Given 01/30/2025 9:33 AM EDT 30 mg Given 01/29/2025 9:07 AM EDT 30 mg Given 01/28/2025 8:24 AM EDT 30 mg OMNIPAQUE (iohexol) 350 mg iodine/mL 150 mL 150 mL, Intravenous, IMG once as needed, contrast, Starting on Sun01/29/25 at 1428, For 1 dose Given 01/29/2025 1:59 PM EDT 150 mLs predniSONE (DELTASONE) tablet 10 mg 10 mg, Oral, Daily, First dose (after last modification) on Sun01/30/25 at 0900 Given 01/30/2025 9:33 AM EDT 10 mg predniSONE (DELTASONE) tablet 5 mg 5 mg, Oral, Daily, First dose on Sun01/28/25 at 0900 Given 01/29/2025 9:07 AM EDT 5 mg Given 01/28/2025 8:24 AM EDT 5 mg tacrolimus (PROGRAF) capsule 3 mg 3 mg, Oral, Two times a day, First dose (after last modification) on Sun01/29/25 at 1900, LEVEL 2 HAZARDOUS MEDICATIONIndications:Prevention of Kidney Transplant Rejection,Prevention of Liver Transplant Rejection Given 01/30/2025 6:21 AM EDT 3 mg Given 01/29/2025 7:11 PM EDT 3 mg tacrolimus (PROGRAF) capsule 5 mg 5 mg, Oral, Every morning, First dose on Sun01/28/25 at 0900, LEVEL 2 HAZARDOUS MEDICATION, On hold since Sun01/28/2025 at 1258 until manually unheldIndications:Prevention of Kidney Transplant Rejection,Prevention of Liver Transplant Rejection Given 01/28/2025 8:23 AM EDT 5 mg tacrolimus (PROGRAF) capsule 6 mg 6 mg, Oral, Every evening (1700), First dose on Sun01/27/25 at 2305, LEVEL 2 HAZARDOUS MEDICATION, On hold since Sun01/28/2025 at 1258 until manually unheldIndications:Prevention of Kidney Transplant Rejection,Prevention of Liver Transplant Rejection Given 01/28/2025 12:02 AM EDT 6 mg documented in this encounter Active and Recently Administered Medications Times are shown in EDT. Scheduled Medication Order 01/28/2025 01/29/2025 01/30/2025 cyclobenzaprine (FLEXERIL) tablet 5 mg 5 mg, Oral, 3 times daily, First dose on Sun01/28/25 at 1300 1554 (Given - Provider: Mery Sullivan RN)2318 (Given - Provider: Darrius Hahn RN - Comment: Last given at 1554) 0907 (Given - Provider: Gladis Tello, ЮЛИЯ)1528 (Given - Provider: Gladis Tello RN)2352 (Given - Provider: Vandana Vilchis RN) 0933 (Given - Provider: Elba Vargas RN)1235 (Given - Provider: Elba Vargas RN) famotidine (PEPCID) tablet 20 mg 20 mg, Oral, 2 times daily, First dose on Sun01/27/25 at 2329 0002 (Given - Provider: Marixa Mock RN)0824 (Given - Provider: Mery Sullivan RN)9 (Given - Provider: Darrius Hahn RN) 0907 (Given - Provider: Gladis Tello RN)195 (Given - Provider: Darrius Hahn RN) 0933 (Given - Provider: Elba Vargas, ЮЛИЯ) fidaxomicin (DIFICID) tablet 200 mg 200 mg, Oral, 2 times daily, First dose on Sun01/29/25 at 0030, May administer with or without food. 0125 (Given - Provider: Vandana Vilchis RN)0907 (Given - Provider: Gladis Tello RN)1956 (Given - Provider: Darrius Hahn RN) 0933 (Given - Provider: Elba Vargas RN) FLUoxetine (PROZAC) capsule 20 mg 20 mg, Oral, Daily, First dose on Sun01/28/25 at 0900 0824 (Given - Provider: Mery Sullivan RN) 09 (Given - Provider: Gladis Tello RN) 0933 (Given - Provider: Elba Vargas RN) gabapentin (NEURONTIN) capsule 100 mg 100 mg, Oral, 3 times daily, First dose on Sun01/27/25 at 2335 0002 (Given - Provider: Marixa Mock RN)0824 (Given - Provider: Mery Sullivan RN)1229 (Given - Provider: Mery Sullivan RN)203 (Given - Provider: Darrius Hahn RN) 0907 (Given - Provider: Gladis Tello RN)1528 (Given - Provider: Gladis Tello RN)2352 (Given - Provider: Vandana Vilchis RN) 0933 (Given - Provider: Elba Vargas RN)1235 (Given - Provider: Elba Vargas RN) heparin (porcine) injection 5,000 Units 5,000 Units, Subcutaneous, Every 8 hours scheduled (3 times per day), First dose on Sun01/27/25 at 2259 0002 (Not Given - Provider: Marixa Mock RN - Reason: Patient/family refused)0350 (Not Given - Provider: Marixa Mock RN - Reason: Patient/family refused)1229 (Not Given - Provider: Mery Sullivan RN - Reason: Patient/family refused)2040 (Not Given - Provider: Darrius Hahn RN - Reason: Patient/family refused - Comment: Pt refused.) 0452 (Not Given - Provider: Vandana Vilchis RN - Reason: Patient/family refused - Comment: Pt refused)1300 (Not Given - Provider: Gladis Tello RN - Reason: Patient/family refused)202 (Not Given - Provider: Vandana Vilchis RN - Reason: Patient/family refused) 0558 (Not Given - Provider: Vandana Vilchis RN - Reason: Patient/family refused)1300 (Due) levothyroxine (SYNTHROID) tablet 75 mcg 75 mcg, Oral, Every morning before breakfast, First dose on Sun01/28/25 at 0730, Please hold tube feeds 30 minutes before and 90 minutes after levothyroxine administration. 0647 (Given - Provider: Marixa Mock RN) 0544 (Given - Provider: Darrius Hahn RN) 0621 (Given - Provider: Vandana Vilchis RN) lidocaine (LIDODERM) 5 % 1 patch 1 patch, Transdermal, Daily, First dose on Sun01/28/25 at 0900, LEAVE PATCH ON FOR 12 HOURS,THEN REMOVE FOR 12 HOURS. 08 (Patch Applied - Provider: Mery Sullivan RN - Comment: neck)2041 (Patch Removed - Provider: Darrius Hahn RN) 09 (Not Given - Provider: Gladis Tello RN - Reason: Patient/family refused) 0935 (Not Given - Provider: Elba Vargas RN - Reason: Patient/family refused) magnesium sulfate in sterile water 100 mL IVPB 4 g (COMPLETED)(Linked Group 1) 4 g, Intravenous, at 25 mL/hr, Once, On Sun01/28/25 at 1100, For 1 dose 1229 (New Bag - Provider: Mery Sullivan RN) magnesium sulfate in sterile water 100 mL IVPB 4 g (COMPLETED)(Linked Group 1) 4 g, Intravenous, at 25 mL/hr, Once, On Sun01/28/25 at 1500, For 1 dose 1717 (New Bag - Provider: Meka Montalvo RN) magnesium sulfate in sterile water 50 mL IVPB 2 g (COMPLETED) 2 g, Intravenous, Administer over 120 Minutes, Once, On Sun01/30/25 at 0730, For 1 dose, For Mag 1.6 - 1.7 0946 (New Bag - Provider: Elba Vargas RN) methocarbamoL (ROBAXIN) tablet 1,000 mg 1,000 mg, Oral, 3 times daily, First dose on Sun01/27/25 at 2335 0002 (Given - Provider: Marixa Mock RN)0823 (Given - Provider: Mery Sullivan RN)1554 (Given - Provider: Mery Sullivan RN)2318 (Given - Provider: Darrius Hahn, ЮЛИЯ - Comment: Last given at 1554) 0907 (Given - Provider: Gladis Tello, ЮЛИЯ)1528 (Given - Provider: Gladis Tello, ЮЛИЯ)2352 (Given - Provider: Vandana Vilchis RN) 0933 (Given - Provider: Elba Vargas, ЮЛИЯ)1235 (Given - Provider: Elba Vargas RN) mycophenolate (CELLCEPT) capsule 500 mg 500 mg, Oral, 2 times daily, First dose on Sun01/27/25 at 2331, LEVEL 2 HAZARDOUS MEDICATION, On hold since Sun01/27/2025 at 2304 until manually unheld 0900 (Automatically Held)2100 (Not Given - Provider: Vandana Vilchis RN - Reason: Other - Comment: Held by provider) 0900 (Automatically Held)2100 (Not Given - Provider: Vandana Vilchis RN - Reason: Other - Comment: Held by provider) 0900 (Automatically Held)1826 (Unheld by provider - Provider: Automatic Discharge Provider) naltrexone (DEPADE) tablet 50 mg 50 mg, Oral, Daily, First dose on Sun01/28/25 at 0900 0824 (Not Given - Provider: Mery Sullivan RN - Reason: Patient/family refused) 0907 (Not Given - Provider: Gladis Tello RN - Reason: Patient/family refused) 0934 (Not Given - Provider: Elba Vargas RN - Reason: Patient/family refused) NIFEdipine (PROCARDIA-XL) 24 hr tablet 30 mg 30 mg, Oral, Daily, First dose on Sun01/28/25 at 0900, DO NOT CRUSH 0824 (Given - Provider: Mery Sullivan RN) 0907 (Given - Provider: Gladis Tello RN) 0933 (Given - Provider: Elba Vargas RN) predniSONE (DELTASONE) tablet 10 mg 10 mg, Oral, Daily, First dose (after last modification) on Sun01/30/25 at 0900 0933 (Given - Provider: Elba Vargas, ЮЛИЯ) predniSONE (DELTASONE) tablet 5 mg (CANCELED) 5 mg, Oral, Daily, First dose on Sun01/28/25 at 0900 0824 (Given - Provider: Mery Sullivan RN) 0907 (Given - Provider: Gladis Tello, ЮЛИЯ) tacrolimus (PROGRAF) capsule 3 mg(Linked Group 2) 3 mg, Oral, Two times a day, First dose (after last modification) on Sun01/29/25 at 1900, LEVEL 2 HAZARDOUS MEDICATION 1911 (Given - Provider: Gladis Tello, ЮЛИЯ) 0621 (Given - Provider: Vandana Vilchis RN) tacrolimus (PROGRAF) capsule 5 mg (CANCELED) 5 mg, Oral, Every morning, First dose on Sun01/28/25 at 0900, LEVEL 2 HAZARDOUS MEDICATION, On hold since Sun01/28/2025 at 1258 until manually unheld 0823 (Given - Provider: Mery Sullivan RN)1258 (Held by provider - Provider: Feliciano Gomez CNP - Reason: Other) 0900 (Automatically Held - Provider: Feliciano Gomez CNP)0917 (Unheld by provider - Provider: Feliciano Gomez CNP) tacrolimus (PROGRAF) capsule 6 mg (CANCELED) 6 mg, Oral, Every evening (1700), First dose on Sun01/27/25 at 2305, LEVEL 2 HAZARDOUS MEDICATION, On hold since Sun01/28/2025 at 1258 until manually unheld 0002 (Given - Provider: Marixa Mock RN)1258 (Held by provider - Provider: Feliciano Gomez CNP - Reason: Other)1700 (Automatically Held - Provider: Feliciano Gomez CNP) 0917 (Unheld by provider - Provider: Feliciano Gomez CNP) Continuous Medication Order 01/28/2025 01/29/2025 01/30/2025 dextrose 5 % and 0.45 % NaCl with KCl 20 mEq infusion 1000 mL (CANCELED) 50 mL/hr, Intravenous, Continuous, Starting on Sun01/27/25 at 2339 0011 (New Bag - Provider: Marixa Mock RN)0822 (Stopped - Provider: Mery Sullivan, ЮЛИЯ) electrolyte-R (pH 7.4) (NORMOSOL-R pH 7.4) IV solution (CANCELED) 75 mL/hr, Intravenous, Continuous, Starting on Sun01/29/25 at 1230 1532 (New Bag - Provider: Gladis Tello, ЮЛИЯ) 0036 (New Bag - Provider: Vandana Vilchis RN) electrolyte-R (pH 7.4) (NORMOSOL-R pH 7.4) IV solution () 999 mL/hr, Intravenous, Continuous, Starting on Sun01/29/25 at 1400, For 1 hour 1533 (New Bag - Provider: Gladis Tello RN) PRN Medication Order 01/28/2025 01/29/2025 01/30/2025 acetaminophen (TYLENOL) tablet 975 mg 975 mg, Oral, Every 8 hours PRN, mild pain (NRS 1-3); no comparable CPOT score, Starting on Sun01/27/25 at 2326, Maximum dose of acetaminophen is 4000 mg (4 grams) from all sources in 24 hours. 0823 (Given - Provider: Mery Sullivan, ЮЛИЯ)1603 (Given - Provider: Mery Sullivan RN) 0125 (Given - Provider: Vandana Vilchis RN)1529 (Given - Provider: Gladis Tello, ЮЛИЯ)2352 (Given - Provider: Vandana Vilchis RN) OMNIPAQUE (iohexol) 350 mg iodine/mL 150 mL (COMPLETED) 150 mL, Intravenous, IMG once as needed, contrast, Starting on Tish 01/29/25 at 1428, For 1 dose 1359 (Given - Provider: Ashley Velasquez RT) Linked Groups Order Group 1: magnesium sulfate in sterile water 100 mL IVPB 4 g (COMPLETED)Jump to med 4 g, Intravenous, at 25 mL/hr, Once, On Sun01/28/25 at 1100, For 1 dose Followed by magnesium sulfate in sterile water 100 mL IVPB 4 g (COMPLETED)Jump to med 4 g, Intravenous, at 25 mL/hr, Once, On Sun01/28/25 at 1500, For 1 dose Group 2: tacrolimus (PROGRAF) capsule 3 mgJump to med 3 mg, Oral, Two times a day, First dose (after last modification) on Tish 01/29/25 at 1900, LEVEL 2 HAZARDOUS MEDICATION documented in this encounter Additional Health Concerns Infection Onset Date Last Indicated 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 difficile 01/28/2025 01/28/20252024 11:22 PM EDT C. difficile 01/28/2025 01/28/2025 Assessment Noted Time PHQ-9 Depression Total Score: 2 12/11/19 9:00 AM EDT documented as of this encounter Care Teams Studio Manager Relationship Specialty Start Date End Date Enedina Mcguire NP [address] [place] [address] PCP - General Internal Medicine 10/05/24 Maureen Pantoja, RN Txp Post Coordinator Transplant Hepatology 10/28/24 documented as of this encounter
--- OUTSIDE RECORDS SUMMARY | 2025-02-12 09:50 | XMS_ITS | Encounter Summary ---
Author Organization [facility] Address [address] [place] [id number] Care Team Providers Care Coiler Name Role Phone Enedina Mcguire NP Primary Care Provider + [phone] Maureen Pantoja RN Unavailable Unavail able Source [...] release of HIV test results or diagnoses. [id number] Reason for Referral * Diagnostic Lab (Routine) - New Request Specialty Diagnoses / Procedures Referred By Shane hernadez Referred To Contact Diagnoses Liver transplant recipient (CMS-HCC) Kidney transplant recipient Immunosuppression ([facility]) Viral disease exposure Procedures BK Virus Quantitative by PCR, Blood [facility] Liver Transplant at [address] [address] Phone: tel: fax: Referral ID Status Reason Start Date Expiration Date V isits Requested Visits Authorized [id number] New Request 02/12/2025 08/11/2025 1 1 * Diagnostic Lab (Routine) - New Request Specialty Diagnoses / Procedures Referred By Contac t Referred To Contact Diagnoses Liver transplant recipient ([facility]-HCC) Kidney transplant recipient Immunosuppression ([facility]) Viral disease exposure Procedures BK Virus Quantitative by PCR, Blood [facility] Liver Transplant at [address] [address] Phone: tel: fax: Referral ID Status Reason Start Date Expiration Date V isits Requested Visits Authorized [id number] New Request 02/12/2025 08/11/2025 1 1 * Diagnostic Lab (Routine) - New Request Specialty Diagnoses / Procedures Referred By Contac t Referred To Contact Diagnoses Liver transplant recipient (CMS-HCC) Kidney transplant recipient Immunosuppression (CMS-HCC) Viral disease exposure Procedures BK Virus Quantitative by PCR, Blood [facility] Liver Transplant at [address] [address] Phone: tel: fax: Referral ID Status Reason Start Date Expiration Date V isits Requested Visits Authorized [id number] New Request 02/12/2025 08/11/2025 1 1 Reason for Visit * Reason Comments Liver Transplant Follow-up Encounter Details Date Type Department Care Team (Late st Contact Info) Description 02/12/2025 10:50 AM EDT Office Visit [facility] Liver Transplant at [address] [address] Chris Orosco MD [address] [place] [phone] Liver transplant recipient (CMS-HCC) (Primary Dx); History of systemic steroid therapy; Kidney transplant recipient; Immunosuppressive management encounter following liver transplant (CMS-HCC); Encounter for monitoring tacrolimus therapy; Vitamin D deficiency; Encounter for therapeutic drug monitoring; S/P liver transplant (CMS-HCC); Hypomagnesemia; Hypertension, unspecified type; Gastroesophageal reflux disease, unspecified whether esophagitis present; Alcohol use disorder; Immunosuppression (CMS-HCC); Viral disease exposure Social History Tobacco Use [...] the past 12 months has th e [employer], oil, or water [employer] threatened to shut off services in your [...] Chris Orosco MD, MPH Transplant hepatology Pager: [phone] * Maureen Pantoja RN - 02/12/2025 10:50 [...] of systemic steroid therapy Liver transplant recipient ([facility]-HCC) Kidney transplant recipient Immunosuppressive management encounter following liver transplant ([facility]) Encounter for monitoring tacrolimus therapy Vitamin D deficiency 1 Occurrences starting 02/12/2025 until 08/27/2025 Vitamin D 25 hydroxy Lab Routine History of systemic steroid therapy Vitamin D deficiency 1 Occurrences starting 02/12/2025 until 08/27/2025 Hepatic Function Panel Lab Routine S/P liver transplant ([facility]-HCC) Immunosuppression ([facility]) weekly for 52 Occurrences starting 02/12/2025 until 02/12/2026 Renal Function Panel w/EGFR Lab Routine S/P liver transplant ([facility]-HCC) Immunosuppression ([facility]) weekly for 52 Occurrences starting 02/12/2025 until 02/12/2026 CBC Lab Routine S/P liver transplant ([facility]-HCC) Immunosuppression ([facility]) weekly for 52 Occurrences starting 02/12/2025 until 02/12/2026 Differential Lab Routine S/P liver transplant ([facility]-HCC) Immunosuppression ([facility]) weekly for 52 Occurrences starting 02/12/2025 until 02/12/2026 Tacrolimus level Lab Routine S/P liver transplant ([facility]) Immunosuppression ([facility]) weekly for 52 Occurrences starting 02/12/2025 until 02/12/2026 Cytomegalovirus DNA, Quant, RT PCR Lab Routine S/P liver transplant ([facility]) Immunosuppression ([facility]) Viral disease exposure Expected: 02/24/2025 (Approximate), Expires: 08/27/2025 Cytomegalovirus DNA, Quant, RT PCR Lab Routine S/P liver transplant ([facility]) Immunosuppression ([facility]) Viral disease exposure Expected: 03/10/2025 (Approximate), Expires: 08/27/2025 BK Virus Quantitative by PCR, Blood Lab Routine Liver transplant recipient ([facility]) Kidney transplant recipient Immunosuppression ([facility]) Viral disease exposure Expected: 04/28/2025 (Approximate), Expires: 08/13/2026 BK Virus Quantitative by PCR, Blood Lab Routine Liver transplant recipient ([facility]) Kidney transplant recipient Immunosuppression ([facility]) Viral disease exposure Expected: 07/27/2025 (Approximate), Expires: 08/27/2025 BK Virus Quantitative by PCR, Blood Lab Routine Liver transplant recipient ([facility]) Kidney transplant recipient Immunosuppression ([facility]) Viral disease exposure Expected: 10/27/2025 (Approximate), Expires: 08/13/2026 Phosphatidylethanol Confirmation, B Lab Routine Liver transplant recipient ([facility]) Kidney transplant recipient Alcohol use disorder weekly for 52 Occurrences starting 02/12/2025 until 02/12/2026 Magnesium Lab Routine Liver transplant recipient ([facility]) Kidney transplant recipient Immunosuppressive management encounter following liver transplant ([facility]) weekly for 52 Occurrences starting 02/12/2025 until 02/12/2026 Post Kidney Transplant Urine Culture Microbiology Routine Liver transplant recipient ([facility]) Kidney transplant recipient Immunosuppressive management encounter following liver transplant ([facility]) weekly for 52 Occurrences starting 02/12/2025 until 08/13/2026 Urinalysis w/Rfl to Microscopic Lab Routine Kidney transplant recipient Immunosuppressive management encounter following liver transplant ([facility]) weekly for 52 Occurrences starting 02/12/2025 until 08/13/2026 Protein / creatinine ratio, urine Lab Routine Kidney transplant recipient Immunosuppressive management encounter following liver transplant ([facility]) weekly for 52 Occurrences starting 02/12/2025 until 08/13/2026 Microalbumin (Random UR) Lab Routine Kidney transplant recipient Immunosuppressive management encounter following liver transplant ([facility]) weekly for 52 Occurrences starting 02/12/2025 until 08/13/2026 documented as of this encounter Visit Diagnoses Diagnosis Liver transplant recipient ([facility])- Primary History of systemic steroid therapy Personal history of systemic steroid therapy Kidney transplant recipient Immunosuppressive management encounter following liver transplant ([facility]) Encounter for monitoring tacrolimus therapy Vitamin D deficiency Unspecified vitamin D deficiency Encounter for therapeutic drug monitoring S/P liver transplant ([facility]) Hypomagnesemia Disorders of magnesium metabolism Hypertension, unspecified type Gastroesophageal reflux disease, unspecified whether esophagitis present Alcohol use disorder Immunosuppression ([facility]) Viral disease exposure Contact with or exposure to other viral diseases documented in this encounter Additional Health Concerns Infection Onset Date Last Indicated Resolved Time C. difficile 01/28/2025 01/28/2025 Assessment Noted Time PHQ-9 Depression Total Score: 2 12/11/19 25 9:00 AM EDT documented as of this encounter Care Teams Coiler Relationship Specialty Start Date End Date Enedina Mcguire NP [address] [place] [address] PCP - General Internal Medicine 10/05/24 Maureen Pantoja, ЮЛИЯ Txp Post Coordinator Transplant Hepatology 10/28/24 documented as of this encounter
--- OUTSIDE RECORDS SUMMARY | 2025-02-17 14:15 | XMS_ITS | Encounter Summary ---
Author Organization [facility] Address [address] [place] [address] Care Team Providers Care Telecommunications Engineer Name Role Phone Enedina Mcguire APRN Primary Care Provider + Reason for Visit * Reason Comments Follow-up Patient following up after liver and kidney transplant. Patient stated he's doing good. Encounter Details Date Type Department Care Team (Late st Contact Info) Description 02/17/2025 3:15 PM EDT Office Visit [facility] INTERNAL MEDICINE [address] [place] [address] Enedina Mcguire APRN [address] [place] [address] Encounter for follow-up (Primary Dx); [...] 30 days sober on 08-05-2024 [facility] Utilities Answer Date Recorded In the past 12 months has [employer], gas, oil, or water [employer] threatened to shut off services in your [...] 0 10/02/2022 [facility] of Occupat ional Health - Occupational Stress [...] and liver. Patient continues to follow under [facility]. Letter was sent in October regarding instructions recommendations for this patient. As stated at about 3 months posttransplant patient will be transition to one of our transplant activity aide group for continuity where they willmanage his liver perspective. liver transplant patient is assigned a posttransplant nurse coordinator Patient did request an updated refill of his once weekly vitamin D supplement Overall patient states he is feeling well. He continues to follow with [facility] about once every 2 months and does have frequent blood work completed Patient states that his liver transplant specialist did provide him clearance to restart on testosterone therapy. Will reach out to [facility] for further confirmation regarding this. Last urine [...] Surgeon: Presley Montes De Oca MD; Location: [facility]; Service: Gastroenterology; Laterality: N/A; ENDOSCOPY N/A 07/29/2022 Procedure: ESOPHAGOGASTRODUODENOSCOPY; Surgeon: Presley Montes De Oca MD; Location: [facility]; Service: Gastroenterology; Laterality: N/A; WITH APC [...] , Rfl: vitamin D (ERGOCALCIFEROL) 1.25 MG (59539 UT) capsule capsule, Take 1 capsule by [...] deficiency - vitamin D (ERGOCALCIFEROL) 1.25 MG (21629 UT) capsule capsule; Take 1 capsule by [...] will reach out to his provider at [facility] for further confirmation of clearance of testosterone. [...] of this note may be an electronic hook up/translation of spoken language to printed textusing the Bitmenuation System. documented in this encounter Plan of Treatment Upcoming Encounters Date Type Department Care Team (Late st Contact Info) Description 05/18/2025 2:30 PM EST Office Visit [facility] INTER[facility] MEDICINE [address] [place] [phone] Enedina Mcguire APRN [address] [place] [address] 05/21/2025 12:30 PM EST Office Visit [facility] PAIN MANAGEMENT [address] [address] Vazquez Christie PA-C [address] [place] [address] [place], [place] [phone] Scheduled Orders Name Type Priority Associated Diagnoses [...] documented as of this encounter Care Teams Telecommunications Engineer Relationship Specialty Start Date End Date Enedina Mcguire APRN [address] [place] [address] PCP - General Nurse Practitioner 10/27/24 documented as of this encounter
--- OUTSIDE RECORDS SUMMARY | 2025-02-19 06:45 | XMS_ITS | Encounter Summary ---
Author Organization [facility] Address [address] [place] [address] Care Team Providers Care Slide Maker Name Role Phone Enedina Mcguire APRN Primary Care Provider + Reason for Visit * Surgical (Routine) - Closed Specialty Diagnoses / Procedures Referred By Shane t Referred To Contact Pain Medicine Diagnoses Cervical radiculopathy Procedures External Facility Surgical/Procedural Request Tye Song MD [address] [place] [address] Phone: tel: fax: [facility] AT [address] [place] [address] Phone: tel: fax: Referral ID Status Reason Start Date Expiration Date V isits Requested Visits Authorized [id number] Closed Other 01/08/2025 04/09/2026 1 1 Encounter Details Date Type Department Care Team (Late st Contact Info) Description 02/19/2025 7:45 AM EDT Outside Facility Service [facility] PAIN MANAGEMENT [address] [address] Tye Song MD [address] [place] [address] Social History Tobacco Use Types Packs/Day Years Used Date Smoking Tobacco: Former Cigarettes 4 20 Passive Smoke Exposure: Past Smokeless Tobacco: Current Comments:MARIJUANA USE ABOUT 2X PER WEEK - reports no use 03-25-2025 Alcohol Use Standard Drinks/Week Comments Not Currently 0 (1 standard drink = 0.6 oz pure alcohol) 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 [facility] Utilities Answer Date Recorded In the past [...] Measure Score 0 10/02/2022 [facility] - Occupational Stress Questionnaire Answer Date [...] GED or equivalent No 07/09/2024 Preferred Language Azeri 07/09/2024 PHQ-2 Answer Date Recorded Patient Health [...] Description 05/18/2025 2:30 PM EST Office Visit [facility] INTERNAL MEDICINE [address] [place] [address] Enedina Mcguire, CONSTRUCTION PLANT OPERATOR [address] [place], [place] [id number] 05/21/2025 12:30 PM EST Office Visit [facility] PAIN MANAGEMENT 3000 [facility] 330 [place] [address] Vazquez Christie PA-C 1760 [facility] [address] [place] [address] documented as of this encounter Visit Diagnoses Not on filedocumented in this encounter Additional Health Concerns Assessment Noted Time PHQ-2 Depression Total Score: 1 12/31/19 24 3:25 PM EDT documented as of this encounter Care Teams Slide Maker Relationship Specialty Start Date End Date Enedina Mcguire APRN [address] [place] [address] PCP - General Nurse Practitioner 10/27/24 documented as of this encounter
--- OUTSIDE RECORDS SUMMARY | 2025-02-25 09:50 | XMS_ITS | Encounter Summary ---
Author Organization [address] [address] Care Team Providers Care Sonar Watchstander Name Role Phone Enedina Mcguire NP Primary Care Provider + [phone] Maureen Pantoja RN Unavailable Unavail able Source [...] release of HIV test results or diagnoses. [id number] Reason for Referral * Physician/SAWYER (Routine) - Denied Specialty Diagnoses / Procedures Referred By Shane t Referred To Contact Pain Medicine Diagnoses Kidney transplant recipient Neck pain with history of cervical spinal surgery S/P liver transplant ([facility]) [facility] Kidney Transplant at [address] [address] Phone: tel: fax: Referral ID Status Reason Start Date Expiration Date Visits Re quested Visits Authorized [id number] Denied 02/25/2025 08/24/2025 1 0 Scheduling Instructions For appointments, please call [phone]. Reason for Visit * Reason Comments Kidney Transplant Follow-up Encounter Details Date Type Department Care Team ([facility] Contact Info) Description 02/25/2025 10:50 AM EDT Office Visit [facility] Kidney Transplant at [facility] [address] [facility] [address] [place] [phone] Carlton Wright MD [address], [facility] [address] [place] [phone] Kidney transplant recipient (Primary Dx); Neck pain with history of cervical spinal surgery; S/P liver transplant ([facility]) Social History Tobacco Use Types Packs/Day Years [...] the past 12 months has th e [employer], [employer], [employer], or water [employer] threatened to shut off services in your [...] living in a half-way (including now)? No 01/28/2025 Yearly Questionnaire Answer [...] No Physical Activity: Unknown (07/14/2024) Received from [facility] Exercise Vital Sign Days of Exercise per Week: Patient unable to answer Minutes of Exercise per Session: Not on file Stress: Patient Unable To Answer (07/14/2024) Received from [facility] [place] of Occupational Health - Occupational Stress Questionnaire Feeling of Stress : Patient unable to answer Social Connections: Patient Unable To Answer (07/14/2024) Received from [facility] Social Connection and Isolation Panel [...] Results Component Value Date PTH 36.0 10/25/2024 [id number] 7.1 (L) 10/08/2024 Hemoglobin A1C: Lab Results [...] documented as of this encounter Care Teams Sonar Watchstander Relationship Specialty Start Date End Date Enedina Mcguire NP [address] [place] [address] PCP - General Internal Medicine 10/05/24 Maureen Pantoja, ЮЛИЯ Txp Post Coordinator Transplant Hepatology 10/28/24 documented as of this encounter
--- OUTSIDE RECORDS SUMMARY | 2025-03-03 12:45 | XMS_ITS | Encounter Summary ---
Author Organization [facility] Address [address] [place] [address] Care Team Providers Care Counselor Aide Name Role Phone Enedina Mcguire APRN Primary Care Provider + Reason for Referral * Surgical (Routine) - Authorized Specialty Diagnoses / Procedures Referred By Shane hernadez Referred To Contact Diagnoses Occipital neuralgia of right side Procedures External Facility Surgical/Procedural Request Vazquez Christie PA-C [address] [place] [address] Phone: tel: fax: [facility] [address] [facility] [address] [place] [address] Phone: tel: fax: Referral ID Status Reason Start Date Expiration Date Visits Requested Visits Authorized [id number] Authorized Continuity of Care 03/03/2025 06/02/2026 1 1 Reason for Visit * Reason Comments Follow-up Neck Pain Encounter Details Date Type Department Care Team (Late st Contact Info) Description 03/03/2025 1:45 PM EDT Office Visit [facility] PAIN MANAGEMENT [address] [facility] [address] [place] [address] Vazquez Christie PA-C [address] [place] [address] Occipital neuralgia of right side (Primary Dx); [...] on 08-05-2024 [facility] Utilities Answer Date Recorded In the past 12 months has [employer], gas, oil, or water [employer] threatened to shut off services in [...] 0 10/02/2022 [facility]at [facility] - Occupational Stress Questionnaire Answer [...] EDT Referring Physician: Enedina Mcguire APRN [address] [place] [address] Primary Physician: Enedina Mcguire APRN CHIEF COMPLAINT [...] Surgeon: Presley Montes De Oca MD; Location: [facility]; Service: Gastroenterology; Laterality: N/A; ENDOSCOPY N/A 07/29/2022 Procedure: ESOPHAGOGASTRODUODENOSCOPY; Surgeon: Presley Montes De Oca MD; Location: [facility]; Service: Gastroenterology; Laterality: N/A; WITH APC [...] Rfl: 0 vitamin D (ERGOCALCIFEROL) 1.25 MG (11460 UT) capsule capsule, Take 1 capsule by [...] 03/03/2025), Disp: , Rfl: Physical Exam: Vitals: 10/21/25 1350 Weight: 111 kg (245 lb) Height: [...] steroid 8. Referrals: None indicated 9. Records: [facility] reviewed; [facility] notes reviewed 10. Lifestyle goals: Follow-up 2 months [facility] Pain Management Vazquez Christie PA-C documented in this encounter Plan of Treatment Upcoming Encounters Date Type Department Care Team (Late st Contact Info) Description 05/18/2025 2:30 PM EST Office Visit [facility] INTERNAL MEDICINE [address] [place] [address] Enedina Mcguire, MINE ADMINISTRATOR SUPERVISOR [address] [place] [address] [phone] 05/21/2025 12:30 PM EST Office Visit [facility] PAIN MANAGEMENT [address] [address] Vazquez Christie PA-C [address] [facility] [address] [place] [phone] Scheduled Orders Name Type Priority Associated Diagnoses [...] documented as of this encounter Care Teams Counselor Aide Relationship Specialty Start Date End Date Enedina Mcguire APRN [address] [place] [address] PCP - General Nurse Practitioner 10/27/24 documented as of this encounter
--- OUTSIDE RECORDS SUMMARY | 2025-03-20 07:12 | XMS_ITS | Encounter Summary ---
Author Organization [facility] Address [address] [place] [address] Care Team Providers Care Rock Crusher Operator Name Role Phone Enedina Mcguire APRN [...] Recorded In the past 12 months has [employer], gas, oil, or water [employer] threatened to shut off services in your [...] Brief Depression Severity Measure Score 0 10/02/2022 [facility] [place] of Occupat ional Health - Occupational Stress [...] GED or equivalent No 07/09/2024 Preferred Language Scottish 07/09/2024 PHQ-2 Answer Date Recorded Patient Health [...] Description 05/18/2025 2:30 PM EST Office Visit [facility] INTERNAL MEDICINE [address]01 [place] [address] Enedina Mcguire APRN [address] [place] [phone] 05/21/2025 12:30 PM EST Office Visit [facility] PAIN MANAGEMENT 3000 [facility] 330 [place] [address] Vazquez Christie PA-C [address] [place] [address] [address] [place] [address] documented as of this encounter Visit Diagnoses Not on filedocumented in this encounter Additional Health Concerns Assessment Noted Time PHQ-2 Depression Total Score: 1 12/31/19 24 3:25 PM EDT documented as of this encounter Care Teams Rock Crusher Operator Relationship Specialty Start Date End Date Enedina Mcguire APRN [address] [place] [address] [phone] PCP - General Nurse Practitioner 10/27/24 documented as of this encounter
--- OUTSIDE RECORDS SUMMARY | 2025-03-20 07:12 | XMS_ITS | Encounter Summary ---
Author Organization [facility] Address [address] [place] [address] Care Team Providers Care Operating Cost Clerk Name Role Phone Enedina Mcguire APRN Primary Care Provider + Encounter Details Date Type Department Care Team ([facility] st Contact Info) Description 02/17/2025 Telephone [facility] INTERNAL MEDICINE 3101 [place] [address] Enedina Mcguire APRN [address] [place] [address] Social History Tobacco Use Types [...] In the past 12 months has [employer], [employer], oil, or water [employer] threatened to shut off services in your [...] 0 10/02/2022 [facility] - [...] Please reach out to Dr. Orosco at [facility] (Phone: tel: ) Patient stated that [...] Description 05/18/2025 2:30 PM EST Office Visit [facility] INTERNAL MEDICINE [address] [place] [phone] Enedina Mcguire APRN [address] [place] [address] 05/21/2025 12:30 PM EST Office Visit [facility] PAIN MANAGEMENT 3000 [facility] 330 [place] [phone] Vazquez Christie PA-C [address] [place] [address] 302 [place] [address] documented as of this encounter Visit Diagnoses Not on filedocumented in this encounter Additional Health Concerns Assessment Noted Time PHQ-2 Depression Total Score: 1 12/31/19 24 3:25 PM EDT documented as of this encounter Care Teams Operating Cost Clerk Relationship Specialty Start Date End Date Enedina Mcguire APRN [address] [place] [address] PCP - General Nurse Practitioner 10/27/24 documented as of this encounter
--- OUTSIDE RECORDS SUMMARY | 2025-03-20 07:12 | XMS_ITS ---
Author Organization Unknown ENCOUNTERS Encounter Performer Location Date Diagnosis Diagnosis Status Inpatient [facility] 1210 [facility] [address] [place] [address] [id number] XS Outpatient [place] [id number] [facility] [address] [place] [address] [id number] XSTH Pre Admit [facility] [address] [facility] [address] [facility] [address] [id number] Emergency [address] [place] [address] [id number] XSTH Pre Admit [facility] 1210 [facility] [address] [place] [address] [id number] Emergency [facility] 1210 [facility] [address] [place] [address] [id number] [place] [facility] [address] [facility] [address] [place] [address] [id number] [place] [facility] [address] [facility] [address] [place] [address] [id number] [place] Emergency [facility] [address] [facility] [address] [place] [address] [id number] [place] *Note: Encounters from your own facility or health system may be excluded. Allergies, Adverse Reactions, Alerts Allergen Type Severity Identification Date Medications Name Date Quantity Days Supplied GPI Number
--- OUTSIDE RECORDS SUMMARY | 2025-03-20 07:12 | XMS_ITS | Encounter Summary ---
Author Organization [facility] Address [address] [place] [address] Care Team Providers Care Tdp Displays Analyst Name Role Phone Enedina Mcguire APRN Primary Care Provider + Reason for Visit * Reason Onset Date Comments Results 02/20/2025 Encounter Details Date Type Department Care Team ([facility] st Contact Info) Description 02/20/2025 Telephone [facility] INTERNAL MEDICINE [address] [place] [address] Enedina Mcguire APRN [address] [place] [address] Results Social History Tobacco Use Types Packs/Day Years Used Date Smoking Tobacco: Former Cigarettes 4 20 Passive Smoke Exposure: Past Smokeless Tobacco: Current Comments:MARIJUANA USE ABOUT 2X PER WEEK - reports no use 08-05-2024 Alcohol Use Standard Drinks/Week Comments Not Currently 0 (1 standard drink = 0.6 oz pure alcohol) 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 [facility] Utilities Answer Date Recorded In the past 12 months has [employer], [employer], oil, or water [employer] threatened to shut off services in your [...] Brief Depression Severity Measure Score 0 10/02/2022 [facility] - Occupational Stress Questionnaire [...] - 02/20/2025 2:42 PM EDT Pt sent [employer] message as well, message sent to Enedina on results * Telephone Encounter - Liliana Glez RegSched Rep - 02/20/2025 1:34 PM EDT Caller: Julien Anderson Relationship: Self Best call back number: [phone] What test was performed: TESTOSTERONE TEST When [...] Office Visit [facility] INTERNAL MEDICINE [address] [place] [address] Enedina Mcguire, GOLF CLUB MAKER [address] [place] [address] 05/21/2025 12:30 PM EST Office Visit [facility] PAIN MANAGEMENT 3000 [facility] 330 [place] [address] Vazquez Christie PA-C 1760 [facility] [address] [place] [address] documented as of this encounter Visit Diagnoses Not on filedocumented in this encounter Additional Health Concerns Assessment Noted Time PHQ-2 Depression Total Score: 1 12/31/19 24 3:25 PM EDT documented as of this encounter Care Teams Tdp Displays Analyst Relationship Specialty Start Date End Date Enedina Mcguire APRN [address] [place] [address] PCP - General Nurse Practitioner 10/27/24 documented as of this encounter
--- OUTSIDE RECORDS SUMMARY | 2025-03-20 07:12 | XMS_ITS | Encounter Summary ---
Author Organization [facility] Address [address] [place] [address] Care Team Providers Care Shift Superintendent Name Role Phone Enedina Mcguire APRN Primary Care Provider + Encounter Details Date Type Department Care Team (Late st Contact Info) Description 02/19/2025 Documentation [facility] PAIN MANAGEMENT [address] [address] Tye Song MD [address] [place] [phone] Social History Tobacco Use Types Packs/Day Years Used Date Smoking Tobacco: Former Cigarettes 4 20 Passive Smoke Exposure: Past Smokeless Tobacco: Current Comments:MARIJUANA USE ABOUT 2X PER WEEK - reports no use 08-05-2024 Alcohol Use Standard Drinks/Week Comments Not Currently 0 (1 standard drink = 0.6 oz pure alcohol) 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 [facility] Utilities Answer Date Recorded In the past 12 months has [employer], [employer], oil, or water [employer] threatened to shut off services in your [...] Measure Score 0 10/02/2022 [facility] - Occupational Stress Questionnaire Answer Date Recorded [...] Song MD - 02/19/2025 9:31 AM EDT [facility] [address] [place] [address] DATE OF SERVICE: 02/19/2025 PROCEDURE: Fluoroscopically-guided bilateral [...] schedule #2 medial branch block ADDITIONAL NOTES: [facility] Pain Management Tye Song MD Codes: [id number] documented in this encounter Plan of Treatment Upcoming Encounters Date Type Department Care Team (Late st Contact Info) Description 05/18/2025 2:30 PM EST Office Visit [facility] INTERNAL MEDICINE [address] [place] [address] Enedina Mcguire, RAMBO [address] [place] [address] 05/21/2025 12:30 PM EST Office Visit [facility] PAIN MANAGEMENT [address] [address] Vazquez Christie PA-C 1760 [facility] [address] [place] [address] documented as of this encounter Visit Diagnoses Not on filedocumented in this encounter Additional Health Concerns Assessment Noted Time PHQ-2 Depression Total Score: 1 12/31/19 24 3:25 PM EDT documented as of this encounter Care Teams Shift Superintendent Relationship Specialty Start Date End Date Enedina Mcguire APRN [address] [place] [address] PCP - General Nurse Practitioner 10/27/24 documented as of this encounter
--- OUTSIDE RECORDS SUMMARY | 2025-03-20 07:12 | XMS_ITS | Encounter Summary ---
Author Organization [facility] Address [address] [place] [address] Care Team Providers Care Atomic Fuel Assembler Name Role Phone Enedina Mcguire APRN Primary Care Provider + Reason for Visit * Reason Onset Date Comments SONG- INJECTION SCHEDULE 02/11/2025 Encounter Details Date Type Department Care Team (Late st Contact Info) Description 02/11/2025 Telephone [facility] [address] [address] Tye Song MD [address] [address] SONG- INJECTION SCHEDULE Social History Tobacco Use Types Packs/Day Years Used Date Smoking Tobacco: Former Cigarettes 4 20 Passive Smoke Exposure: Past Smokeless Tobacco: Current Comments:MARIJUANA USE ABOUT 2X PER WEEK - reports no use 08-05-2024 Alcohol Use Standard Drinks/Week Comments Not Currently 0 (1 standard drink = 0.6 oz pure alcohol) 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 [facility] Utilities Answer Date Recorded In the past 12 months has [email or web address], gas, oil, or water [employer] threatened to shut off services in your [...] Depression Severity Measure Score 0 10/02/2022 [facility] - Occupational Stress Questionnaire Answer [...] JULIEN Relationship to Patient: SELF Phone Number: [phone] Reason For Call: PATIENT CALLING TO GET BACK ON THE SCHEDULE FOR HIS INJECTIONS documented in this encounter Plan of Treatment Upcoming Encounters Date Type Department Care Team (Late st Contact Info) Description 05/18/2025 2:30 PM EST Office Visit [facility] INTERNAL MEDICINE [address] [place] [phone] Enedina Mcguire, SALES SUPPORT TECHNICIAN [address] [place] [address] 05/21/2025 12:30 PM EST Office Visit [facility] PAIN MANAGEMENT 3000 [facility] [address] [place] [address] Vazquez Christie PA-C 1760 [facility] [address] [place] [address] documented as of this encounter Visit Diagnoses Not on filedocumented in this encounter Additional Health Concerns Assessment Noted Time PHQ-2 Depression Total Score: 1 12/31/19 24 3:25 PM EDT documented as of this encounter Care Teams Atomic Fuel Assembler Relationship Specialty Start Date End Date Enedina Mcguire APRN [address] [place] [address] PCP - General Nurse Practitioner 10/27/24 documented as of this encounter
--- OUTSIDE RECORDS SUMMARY | 2025-03-20 07:12 | XMS_ITS | Encounter Summary ---
[facility] Address [address] [place] [address] Care Team Providers Care Sample Checker Name Role Phone Enedina Mcguire APRN Primary Care Provider + Encounter Details Date Type Department Care Team (Late st Contact Info) Description 02/20/2025 Telephone [facility] PAIN [facility]EMENT [address] [address] Georgina Rainey MA Social History Tobacco Use Types Packs/Day Years Used Date Smoking Tobacco: Former Cigarettes 4 20 Passive Smoke Exposure: Past Smokeless Tobacco: Current Comments:MARIJUANA USE ABOUT 2X PER WEEK - reports no use 08-05-2024 Alcohol Use Standard Drinks/Week Comments Not Currently 0 (1 standard drink = 0.6 oz pure alcohol) 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 [facility] Utilities Answer Date Recorded In the past 12 months has [employer], [employer], oil, or water [employer] threatened to shut [...] Brief Depression Severity Measure Score 0 10/02/2022 [facility] - Occupational Stress Questionnaire Answer Date [...] [facility] INTERNAL MEDICINE [address] [place] [address] Enedina Mcguire APRN [address] [place] [address] 05/21/2025 12:30 PM EST Office Visit [facility] PAIN MANAGEMENT [address] [address] Vazquez Christie PA-C 1760 [facility] [address] [place] [address] documented as of this encounter Visit Diagnoses Not on filedocumented in this encounter Additional Health Concerns Assessment Noted Time PHQ-2 Depression Total Score: 1 12/31/19 24 3:25 PM EDT documented as of this encounter Care Teams Sample Checker Relationship Specialty Start Date End Date Enedina Mcguire APRN [address] [place] [address] PCP - General Nurse Practitioner 10/27/24 documented as of this encounter
--- OUTSIDE RECORDS SUMMARY | 2025-03-20 07:13 | XMS_ITS | Encounter Summary ---
Author Organization [facility] Address [address] [place] [address] Care Team Providers Care Strategic Planning Analyst Name Role Phone Enedina Mcguire NP Primary Care Provider + [phone] Maureen Pnatoja RN Unavailable Unavail able Chris Orosco MD Unavailable [phone] Source Comments This information has been disclosed [...] release of HIV test results or diagnoses. [id number] Encounter Details Date Type Department Care Team (Late st Contact Info) Description 02/26/2025 Chart Note [facility] Liver Transplant at [place] [phone] [address] Marlene Ro MA 02/24 Labs entered from [facility] Social History Tobacco Use Types Packs/Day Years Used Date Smoking Tobacco: Former Cigarettes Smokeless Tobacco: Current Alcohol Use Standard Drinks/Week Comments Yes 0 (1 standard drink = 0.6 oz pure alcohol) History of alcohol abuse, reports no use in 3 week- typically endorses use as 4 glasses of wine a days Utilities Answer Date Recorded In the past 12 months has [employer], gas, oil, or water company threatened [...] were not included. 02/24 Labs entered from [facility] documented in this encounter Plan [...] * (ABNORMAL) Magnesium (02/24/2025 1:03 PM EDT) [facility] Magnesium 1.2(A) 1.6 - 2.4 mg/dL Plasma Narrative Resulting Agency Comment [facility] Result [facility] LAB BLOOD ORDERABLES Denisse l Result * (ABNORMAL) Renal Function Panel w/o EGFR (02/24/2025 1:03 PM EDT) [facility] Glucose 121 BUN 18 CO2 26(A) 13 - 22 mmol/L Creatinine 1.00 Potassium 4.1 Sodium 140 Chloride 99 Phosphorus 4.6 2.5 - 4.9 mg/dL Calcium 9.4 EGFR 82 mg/dL Albumin 4.7 3.5 - 5.0 g/dL Blood Narrative Resulting Agency Comment [facility] Result [facility] LAB BLOOD ORDERABLES Denisse l Result * Creatinine, urine, random (02/24/2025 1:03 PM EDT) [facility] Creatinine, Urine 96 Urine Narrative Resulting Agency Comment [facility] Result [facility] URINE ORDERABLES Final Re sult * (ABNORMAL) Urinalysis w/Rfl to Microscopic (02/24/2025 1:03 PM EDT) [facility] Glucose, UA Negative Negative Ketones, UA Negative Negative Blood, UA Negative Negative Bilirubin, UA Negative Negative Urobilinogen, UA Normal Normal Protein, UA 1+(A) Negative pH, UA 6.0 4.5 - 8.0 Specific [place], UA 1.020 1.005 - 1.030 Clarity, UA Clear Clear Color, UA Yellow Light Yellow, Yellow Urine Narrative Resulting Agency Comment [facility] Result [facility] URINE ORDERABLES Final Re sult * [...] 10^3/mL Blood Narrative Resulting Agency Comment [facility] Result [facility] LAB BLOOD ORDERABLES Denisse l Result * Urine Protein, Tot, Random (w/o Creat) (02/24/2025 1:03 PM EDT) Total Protein, Ur 63.0 Urine Narrative Resulting Agency Comment [facility] Result [facility] URINE ORDERABLES Final Re sult * Hepatic Function Panel (02/24/2025 1:03 PM EDT) Bilirubin, Direct 0.5 Bilirubin, Indirect 0.4 Alkaline Phosphatase 184 ALT 52 AST 71 Total Bilirubin 0.9 Total Protein 6.8 Plasma Narrative Resulting Agency Comment [facility] Result [facility] LAB BLOOD ORDERABLES Denisse l Result * Urine culture (02/24/2025 1:03 PM EDT) Urine Culture, Comprehensive no growth URINE SPECIMEN / Unknown Narrative Resulting Agency Comment [facility] us Historical Provider MICROBIOLOGY - GENERAL OR DERABLES Final Result documented in this encounter Visit Diagnoses Not on filedocumented in this encounter Additional Health Concerns Infection Onset Date Last Indicated Resolved Time C. difficile 01/28/2025 01/28/2025 Assessment Noted Time PHQ-9 Depression Total Score: 2 12/11/19 25 9:00 AM EDT documented as of this encounter Care Teams Strategic Planning Analyst Relationship Specialty Start Date End Date Enedina Mcguire NP [address] [place] [address] PCP - General Internal Medicine 10/05/24 Maureen Pantoja, ЮЛИЯ Txp Post Coordinator Transplant Hepatology 10/28/24 Chris Orosco MD [address] [place] [address] [address] [place] [address] Consulting Physician Transplant Hepatology 02/26/25 documented as of this encounter
--- OUTSIDE RECORDS SUMMARY | 2025-03-20 07:13 | XMS_ITS | Encounter Summary ---
[facility] Address [address] [place] [address] Care Team Providers Care Weight Guesser Name Role Phone Enedina Mcguire APRN Primary Care Provider + Encounter Details Date Type Department Care Team ([facility] st Contact Info) Description 02/23/2025 Results Follow-Up [facility] INTERNAL MEDICINE [address] [place] [address] Enedina Mcguire APRN [address] [place], [place] [phone] Social History Tobacco Use Types Packs/Day Years [...] Recorded In the past 12 months has [employer], [employer], oil, or water [employer] threatened to shut off services in [...] Brief Depression Severity Measure Score 0 10/02/2022 [facility] - [...] GED or equivalent No 07/09/2024 Preferred Language Luxembourgish 07/09/2024 PHQ-2 Answer Date Recorded Patient Health [...] Description 05/18/2025 2:30 PM EST Office Visit [facility] INTERNAL MEDICINE [address] [place] [address] Enedina Mcguire APRN [address] [place] [address] 05/21/2025 12:30 PM EST Office Visit [facility] PAIN MANAGEMENT 3000 [facility] [address] [place] [address] Vazquez Christie PA-C [address] [place] [address] [place] [address] documented as of this encounter Visit Diagnoses Not on filedocumented in this encounter Additional Health Concerns Assessment Noted Time PHQ-2 Depression Total Score: 1 12/31/19 24 3:25 PM EDT documented as of this encounter Care Teams Weight Guesser Relationship Specialty Start Date End Date Enedina Mcguire APRN [address] [place] [id number] PCP - General Nurse Practitioner 10/27/24 documented as of this encounter
--- OUTSIDE RECORDS SUMMARY | 2025-03-20 07:13 | XMS_ITS | Encounter Summary ---
[facility] [address] [place] [address] Care Team Providers Care Crystallizer Operator Name Role Phone Enedina Mcguire APRN Primary Care Provider + Encounter Details Date Type Department Care Team ([facility] st Contact Info) Description 02/23/2025 Prior Authorization [facility] INTERNAL MEDICINE [address] [place] [address] Enedina Mcguire APRN [address] [place] [id number] Social History Tobacco Use Types Packs/Day Years Used Date Smoking Tobacco: Former Cigarettes 4 20 Passive Smoke Exposure: Past Smokeless Tobacco: Current Comments:MARIJUANA USE ABOUT 2X PER WEEK - reports no use 08-05-2024 Alcohol Use Standard Drinks/Week Comments Not Currently 0 (1 standard drink = 0.6 oz pure alcohol) 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 [facility] Utilities Answer Date Recorded In the past 12 months has [employer], [employer], oil, or water [employer] threatened to shut off services in your [...] cypionate * Telephone Encounter - Maria Fernanda Evasn MA - 02/24/2025 11:14 AM EDT Sent Trilibis message to patient. * Telephone Encounter - Maria Fernanda vEans MA - 02/24/2025 7:42 AM EDT PA [...] Description 05/18/2025 2:30 PM EST Office Visit [facility] INTERNAL MEDICINE [address] [place] [address] Enedina Mcguire, EXECUTIVE PRODUCER PROMOS [address] [place] [address] [phone] 05/21/2025 12:30 PM EST Office Visit [facility] PAIN MANAGEMENT 3000 [facility] [address] [place] [address] Vazquez Christie PA-C 1760 [facility] [address] [place] [address] documented as of this encounter Visit Diagnoses Not on filedocumented in this encounter Additional Health Concerns Assessment Noted Time PHQ-2 Depression Total Score: 1 12/31/19 24 3:25 PM EDT documented as of this encounter Care Teams Crystallizer Operator Relationship Specialty Start Date End Date Enedina Mcguire APRN [address] [place] [address] PCP - General Nurse Practitioner 10/27/24 documented as of this encounter"
--- OUTSIDE RECORDS SUMMARY | 2025-03-20 07:15 | XMS_ITS | Encounter Summary ---
Author Organization [facility] Address [facility] [place] [place] [address] Care Team Providers Care Senior Devops Engineer Name Role Phone Enedina Mcguire NP Primary Care Provider + [phone] Maureen Pantoja RN Unavailable Unavail able Chris Orosco MD Unavailable [phone] Source Comments This information has been disclosed [...] release of HIV test results or diagnoses. [id number] Reason for Visit * Reason Comments Medication Refill Encounter Details Date Type Department Care Team (Late st Contact Info) Description 03/02/2025 Refill [facility] [address] [place] [address] Feliciano Gomez CNP [address] [place] [address] [phone] Social History Tobacco Use Types Packs/Day Years Used Date Smoking Tobacco: Former Cigarettes Smokeless Tobacco: Current Alcohol Use Standard Drinks/Week Comments Yes 0 (1 standard drink = 0.6 oz pure alcohol) History of alcohol abuse, reports no use in 3 week- typically endorses use as 4 glasses of wine a days Utilities Answer Date Recorded In the past 12 months has th e [employer], [employer], or [employer] threatened to shut off services in [...] as of this encounter Care Teams Senior Devops Engineer Relationship Specialty Start Date End Date Enedina Mcguire NP [address] [place] [address] PCP - General Internal Medicine 10/05/24 Maureen Pantoja RN Txp Post Coordinator Transplant Hepatology 10/28/24 Chris Orosco MD 3130 [facility] 3200 [place] [address] Consulting Physician Transplant Hepatology 02/26/25 documented as of this encounter
--- OUTSIDE RECORDS SUMMARY | 2025-03-20 07:15 | XMS_ITS | Encounter Summary ---
Author Organization [facility] Address [address] [place] [address] Care Team Providers Care Traffic Signal Supervisor Maintenance Name Role Phone Enedina Mcguire NP Primary Care Provider + [phone] Maureen Pantoja RN Unavailable Unavail able Chris Orosco MD Unavailable [phone] Source Comments This information has been disclosed [...] release of HIV test results or diagnoses. [id number] Encounter Details Date Type Department Care Team (Late st Contact Info) Description 03/02/2025 Telephone [facility] Liver Transplant at [address] [address] Marlene Ro MA Social History [...] Recorded In the past 12 months has [employer], gas, oil, or water [employer] threatened to shut off services in [...] as of this encounter Care Teams Traffic Signal Supervisor Maintenance Relationship Specialty Start Date End Date Enedina Mcguire NP [address] [place] [address] PCP - General Internal Medicine 10/05/24 Maureen Pantoja, ЮЛИЯ Txp Post Coordinator Transplant Hepatology 10/28/24 Chris Orosco MD [address] [place] [address] [address] [place] [address] Consulting Physician Transplant Hepatology 02/26/25 documented as of this encounter
--- OUTSIDE RECORDS SUMMARY | 2025-03-20 07:15 | XMS_ITS | Data Portability ---
Author Organization [facility],, Main Office Address [address] [place] [address] Assessment No assessment recorded. Plan of Treatment [...] Available No t Available BD Regular Bevel [place] 18 gauge x 1 active Not Available [...] Updated DateTime 3 193.04 cm 29.1 kg/m2 457263. 58 g 112 /min 97.7 [degF] 141/84 mm[Hg] [facility], 3 13:14:11 Date Recorded Body height Body mass index (BMI) Body weight Heart rate Body temperature Systolic And Diastolic Provider Name and Address Organization Details Last Updated DateTime 4 193.04 cm 30.4 kg/m2 881072. 09 g 92 /min 97.5 [degF] 176/104 mm[Hg] [facility], 4 14:06:31 Date Recorded Body temperature Provider Name a nd Address Organization Details Last Updated DateTime 12/27/2020 99.5 [degF] Cuca Strickland [facility], 12/27/2020 13:41:33 Date Recorded Body weight Heart rate Body temperature Systolic And Diastolic Provider Name and Address Organization Details Last Updated DateTime 04/03/2022 128929.95 g 93 /min 97.6 [degF] 114/83 mm[Hg] Ashley Wallace [facility], 04/03/2022 14:42:57 Social History None recorded. Functional Status None recorded. Mental Status None recorded. Family History Nothing Reported. Medical History No medical history recorded. Past Encounters Encounter ID Performer Location Encounter Start Date Encounter Closed Date Diagnosis/Indication Diagnosis SNOMED-CT Code Diagnosis ICD10 Code Diagnosis IMO Codes Diagnosis Note [id number] Yung Felipe DO Main Office [address] [place] [address] 12/27/2020 13:24:24 12/27/2020 14:00:19 Evaluation of semen fertility 672175874 N46.9 semen analysis [id number] Yung Felipe DO Main Office [address] [place] [address] 07/04/2021 14:47:56 07/04/2021 16:00:05 Evaluation of semen fertility 269118244 N46.9 semen analysis [id number] Yung Felipe DO Main Office [address] [facility] [address] 05/31/2022 13:04:00 05/31/2022 13:50:01 Evaluation of semen fertility [id number] N46.9 semen analysis + viability: analysis by Dr. Ruiz [id number] Yung Felipe DO Main Office [address] [facility] [place] [address] 10/22/2023 13:58:48 10/22/2023 14:31:18 Evaluation of semen fertility 447708731 N46.9 semen analysis + viability: analysis by [...] analysis Yung Felipe DO [address], [place], [address], [facility], 08/06/2021 23:24:22 2 text/html InfertilityReported by Patient Not Available Not Available Not Available 3 text/html semen analysis + viability [address], [place], [address], [facility], 05/31/2022 13:57:30 4 text/html semen analysis [address], [place], [address], [facility], 10/22/2023 16:29:00
--- OUTSIDE RECORDS SUMMARY | 2025-03-20 07:16 | XMS_ITS | Encounter Summary ---
[facility] Address [address] [place] [address] Care Team Providers Care Rn Forensic Name Role Phone Enedina Mcguire APRN Primary Care Provider + Encounter Details Date Type Department Care Team (Late st Contact Info) Description 03/19/2025 Documentation [facility] PAIN MANAGEMENT [address] [address] Tye Song MD [address] [place] [phone] Social History Tobacco Use Types Packs/Day Years [...] Recorded In the past 12 months has [employer], [employer], oil, or water [employer] threatened to shut off services in your [...] Score 0 10/02/2022 [facility] - Occupational Stress Questionnaire Answer [...] Progress Notes * Tye Song MD - 03/19/2025 9:37 AM EST [facility] [address] [place] [address] 03/19/2025 PROCEDURE: Greater Occipital Nerve Block -RIGHT PRE-OP DIAGNOSIS: Occipital neuralgia POST-OP DIAGNOSIS: Same CONSENT: Risks, benefits and options were explained to the patient, all questions were answered andwritten informed consent was obtained. ANESTHESIA: Local only PROCEDURE NOTE: The patient was placed in a seated position and all pressure points were padded. A timeout protocol was performed. Relevant anatomy were identified including the external occipital protuberance (EOP) and mastoid process (MP). The patient's occipital region was prepped with alcohol swab. The occipital artery was palpated just lateral to the external occipital protuberance, then a 27-gauge 1.5 inch beveled needle was advanced approximately two fingerbreadths lateral to the EOP taking care to avoid the vasculature. Periosteum was contacted and the needle was slightly withdrawn. After negative aspiration for bodily fluids, a mixture containing 2 cc 1% lidocaine and 1 cc 10 mg dexamethasone was injected with intermittent aspiration in a fan distribution along the course of the occipital nerve. The needle was then removed and a bandage applied. EBL: None COMPLICATIONS: None The patient tolerated the procedure well without any complications and was ambulating at baseline upon discharge. FOLLOW UP: As scheduled ADDITIONAL NOTES: [facility] Pain Management Tye Song MD documented in this encounter Plan of Treatment Upcoming Encounters Date Type Department Care Team (Late st Contact Info) Description 05/18/2025 2:30 PM EST Office Visit [facility] INTERNAL MEDICINE [address] [place] [address] Enedina Mcguire, INDUSTRIAL GAS SERVICE HELPER [address] [place] [address] [phone] 05/21/2025 12:30 PM EST Office Visit [facility] PAIN MANAGEMENT [address] [address] Vazquez Christie PA-C [address] [place] [address] [address] [place] [phone] documented as of this encounter Visit Diagnoses Not on filedocumented in this encounter Additional Health Concerns Assessment Noted Time PHQ-2 Depression Total Score: 1 12/31/19 24 3:25 PM EDT documented as of this encounter Care Teams Rn Forensic Relationship Specialty Start Date End Date Enedina Mcguire, INDUSTRIAL GAS SERVICE HELPER [address] [place] [phone] PCP - General Nurse Practitioner 10/27/24 documented as of this encounter
--- OUTSIDE RECORDS SUMMARY | 2025-03-20 07:17 | XMS_ITS | Encounter Summary ---
[facility] Organization [facility] Address [address] [place] [address] Care Team Providers Care Medical Records Technician Name Role Phone Enedina Mcguire APRN Primary Care Provider + Reason for Visit * Reason Comments Med Refill Encounter Details Date Type Department Care Team (Late st Contact Info) Description 07/20/2022 Refill [facility] GA[facility] 1780 [facility] [address] [place] [address] Lj Tapia APRN [address] [place] [address] Secondary esophageal varices without bleeding Social History [...] or training? Not on file Preferred Language Bulgarian 07/03/2022 Sex and Gender Information Value Date [...] [facility] INTERNAL MEDICINE [address] [place] [address] Enedina Mcguire APRN 3101 [place], [place] [id number] 05/21/2025 12:30 PM EST Office Visit [facility] PAIN MANAGEMENT [address] [address] Vazquez Christie PA-C 1760 [facility] [address] [place] [address] documented as of this encounter Visit Diagnoses Diagnosis Secondary esophageal varices without bleeding documented in this encounter Additional Health Concerns Infection Onset Date Last Indicated Resolved Time COVID Screen (preop/placement) 07/28/2022 07/28/2022 07/29/2022 12:00 AM EDT documented as of this encounter Care Teams Medical Records Technician Relationship Specialty Start Date End Date Enedina Mcguire APRN [address] [place] [address] [id number] PCP - General Nurse Practitioner 10/27/24 documented as of this encounter
--- OUTSIDE RECORDS SUMMARY | 2025-03-20 07:17 | XMS_ITS | Encounter Summary ---
[facility] Address [address] [place] [address] Care Team Providers Care Take Up Operator Name Role Phone Enedina Mcguire APRN Primary Care Provider + Reason for Visit * Reason Comments Med Refill Encounter Details Date Type Department Care Team ([facility] st Contact Info) Description 03/16/2025 Refill [facility] INTERNAL MEDICINE [address] [place] [address] Enedina Mcguire APRN [address] [place], [place] [id number] Erectile dysfunction, unspecified erectile dysfunction type Social History Tobacco Use Types Packs/Day Years Used Date Smoking Tobacco: Former Cigarettes 4 20 Passive Smoke Exposure: Past Smokeless Tobacco: Current Comments:MARIJUANA USE ABOUT 2X PER WEEK - reports no use 08-05-2024 Alcohol Use Standard Drinks/Week Comments Not Currently 0 (1 standard drink = 0.6 oz pure alcohol) 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 [facility] Utilities Answer Date Recorded In the past 12 months has [employer], [employer], oil, or water [employer] threatened to shut off services in your [...] Score 0 10/02/2022 [facility] - Occupational Stress [...] Encounter - Maria Fernanda Evans MA - 03/16/2025 1:14 PM EST Medication discontinued by another provider on 07/11/2024 documented in this encounter Plan of Treatment Upcoming Encounters Date Type Department Care Team (Late st Contact Info) Description 05/18/2025 2:30 PM EST Office Visit [facility] INTERNAL MEDICINE [address] [place] [address] Enedina Mcguire, PROFESSOR COMPUTER SCIENCE [address] [place] [address] 05/21/2025 12:30 PM EST Office Visit [facility] PAIN MANAGEMENT [address] [address] Vazquez Christie PA-C [address] [address] documented as of this encounter Visit Diagnoses Diagnosis Erectile dysfunction, unspecified erectile dysfunction type documented in this encounter Additional Health Concerns Assessment Noted Time PHQ-2 Depression Total Score: 1 12/31/19 24 3:25 PM EDT documented as of this encounter Care Teams Take Up Operator Relationship Specialty Start Date End Date Enedina Mcguire APRN [address] [place] [address] PCP - General Nurse Practitioner 10/27/24 documented as of this encounter
--- OUTSIDE RECORDS SUMMARY | 2025-03-20 07:17 | XMS_ITS | Encounter Summary ---
Author Organization [facility] Address [address] [place] [address] Care Team Providers Care Plain Goods Hemmer Name Role Phone Enedina Mcguire APRN Primary Care Provider + Reason for Visit * Reason Onset Date Comments Med Refill 03/20/2025 Encounter Details Date Type Department Care Team ([facility] st Contact Info) Description 03/19/2025 Refill [facility] INTERNAL MEDICINE [address] [place] [address] Enedina Mcguire APRN [address] [place] [address] Low testosterone in male Social History Tobacco Use Types Packs/Day Years [...] In the past 12 months has [employer], gas, oil, or water [employer] threatened to shut off services in [...] Score 0 10/02/2022 [facility] - Occupational Stress Questionnaire [...] Encounter - Maria Fernanda Evans MA - 03/20/2025 7:09 AM EST Last appointment: 02/17/2025 Next appointment: 05/18/2025 UDS: 11/20/2023 CSA: 02/17/2025 Last Refill: testosterone 02/24/2025 cyclobenzaprine filled by historical provider documented in this encounter Plan of Treatment Upcoming Encounters Date Type Department Care Team (Late st Contact Info) Description 05/18/2025 2:30 PM EST Office Visit [facility] INTERNAL MEDICINE [address] [place] [phone] Enedina Mcguire, ELECTRIC STOVE MECHANIC [address] [place], [place] [id number] 05/21/2025 12:30 PM EST Office Visit [facility] PAIN MANAGEMENT 3000 [facility] [address] [place] [address] Vazquez Christie PA-C [address] [place] [id number] documented as of this encounter Visit Diagnoses Diagnosis Low testosterone in male documented in this encounter Additional Health Concerns Assessment Noted Time PHQ-2 Depression Total Score: 1 12/31/19 24 3:25 PM EDT documented as of this encounter Care Teams Plain Goods Hemmer Relationship Specialty Start Date End Date Enedina Mcguire APRN [address] [place] [address] PCP - General Nurse Practitioner 10/27/24 documented as of this encounter
--- OUTSIDE RECORDS SUMMARY | 2025-03-20 07:17 | XMS_ITS | Encounter Summary ---
Author Organization [facility] Address [address] [place] [address] Care Team Providers Care Nutritionalist Name Role Phone Enedina Mcguire APRN Primary Care Provider + Reason for Visit * Reason Onset Date Comments Med Refill 03/16/2025 Encounter Details Date Type Department Care Team ([facility] st Contact Info) Description 03/15/[address] [facility] INTERNAL MEDICINE [address] [place] [address] Enedina Mcguire APRN [address] [place] [address] Acquired hypothyroidism Social History Tobacco Use Types Packs/Day Years [...] Recorded In the past 12 months has [employer], gas, oil, or water [employer] threatened to shut off services in [...] Score 0 10/02/2022 [facility] - Occupational Stress Questionnaire Answer Date [...] - Maria Fernanda Evans MA - 03/16/2025 12:49 PM EST Last appointment: 02/17/2025 Next appointment: 05/18/2025 Last Refill: 10/20/2024 quantity of 30 with 0 refills documented in this encounter Plan of Treatment Upcoming Encounters Date Type Department Care Team (Late st Contact Info) Description 05/18/2025 2:30 PM EST Office Visit [facility] INTERNAL MEDICINE [address] [place] [address] Enedina Mcguire, TRAIN CREW MEMBER [address] [place] [address] 05/21/2025 12:30 PM EST Office Visit [facility] PAIN MANAGEMENT 3000 [facility] [address] [place] [address] Vazquez Christie PA-C 1760 [facility] [address] [place] [address] documented as of this encounter Visit Diagnoses Diagnosis Acquired hypothyroidism Unspecified hypothyroidism documented in this encounter Additional Health Concerns Assessment Noted Time PHQ-2 Depression Total Score: 1 12/31/19 24 3:25 PM EDT documented as of this encounter Care Teams Nutritionalist Relationship Specialty Start Date End Date Enedina Mcguire APRN [address] [place] [address] PCP - General Nurse Practitioner 10/27/24 documented as of this encounter
--- OUTSIDE RECORDS SUMMARY | 2025-03-20 07:18 | XMS_ITS | Encounter Summary ---
Author Organization [facility] Address [address] [place] [address] Care Team Providers Care Medical Receptionist Name Role Phone Enedina Mcguire NP Primary Care Provider + [phone] Maureen Pantoja RN Unavailable Unavail able Chris Orosco MD Unavailable [phone] Source Comments This information has been disclosed [...] release of HIV test results or diagnoses. [id number] Encounter Details Date Type Department Care Team (Late st Contact Info) Description 03/10/2025 Chart Note [facility] Liver Transplant at [address] [address] Marlene Ro MA 03/10 Labs entered from [facility] Social History Tobacco Use Types Packs/Day Years Used Date Smoking Tobacco: Former Cigarettes Smokeless Tobacco: Current Alcohol Use Standard Drinks/Week Comments Yes 0 (1 standard drink = 0.6 oz pure alcohol) History of alcohol abuse, reports no use in 3 week- typically endorses use as 4 glasses of wine a days Utilities Answer Date Recorded In the past 12 months has [employer], gas, oil, or water company threatened to [...] Notes * Marlene Ro MA - 03/10/2025 1:50 PM EDT Images from the original note were not included. 03/10 Labs entered from [facility] documented in this encounter Plan of Treatment Not on file documented as of this encounter Procedures Procedure Name Priority Date/Time Associated Diagnosis Comments PHATIDYLETHANOL (PETH) Routine 9:29 AM EDT URINE PROTEIN, TOTAL, RANDOM (W/O CREATININE) Routine 03/10/2025 9:29 AM EDT CYTOMEGALOVIRUS DNA, QUANT, RT PCR Routine 03/10/2025 9:29 AM EDT HEPATIC FUNCTION PANEL Routine 9:29 AM EDT TACROLIMUS LEVEL Routine 03/10/2025 9:29 AM EDT CREATININE, URINE, RANDOM Routine 03/10/2025 9:29 AM EDT URINALYSIS W/RFL TO MICROSCOPIC Routine 03/10/2025 9:29 AM EDT CBC AND DIFFERENTIAL Routine 03/10/2025 9:29 AM EDT MAGNESIUM Routine 03/10/2025 9:29 AM EDT RENAL FUNCTION PANEL W/O EGFR Routine 03/10/2025 9:29 AM EDT documented in this encounter Results * Phatidylethanol (PEth) (03/10/2025 9:29 AM EDT) Phosphatidylethanol (PEth) Positive 413 Whole Blood Result [facility] Provider MD LAB BLOOD ORDERABLES Denisse l Result * Tacrolimus level (03/10/2025 9:29 AM EDT) Tacrolimus Lvl 14.5 6 - 15 ng/mL Whole Blood Result [facility] MD LAB BLOOD ORDERABLES Denisse l Result * Cytomegalovirus DNA, Quant, RT PCR (03/10/2025 9:29 AM EDT) CMV Quant DNA PCR (Plasma) Negative Plasma Result [facility] MD LAB BLOOD ORDERABLES Denisse l Result * Creatinine, urine, random (03/10/2025 9:29 AM EDT) Creatinine, Urine 94 Urine Narrative Resulting Agency Comment [facility] Result [facility] Provider URINE ORDERABLES Final Re sult * Urinalysis w/Rfl to Microscopic (03/10/2025 9:29 AM EDT) Pathologist [facility] Glucose, UA Negative Negative Ketones, UA Negative Negative Blood, UA Negative Negative Bilirubin, UA Negative Negative Urobilinogen, UA Normal Normal Protein, UA Negative Negative Nitrite, UA Negative Negative pH, UA 5.5 4.5 - 8.0 Specific Madill, UA 1.015 1.005 - 1.030 Clarity, UA Clear Clear Color, UA Yellow Light Yellow, Yellow Urine Narrative Resulting Agency Comment [facility] Result [facility] Provider URINE ORDERABLES Final Re sult * Urine Protein, Tot, Random (w/o Creat) (03/10/2025 9:29 AM EDT) Total Protein, Ur 21.0 Urine Narrative Resulting Agency Comment [facility] Result [facility] Provider URINE ORDERABLES Final Re sult * (ABNORMAL) Magnesium (03/10/2025 9:29 AM EDT) Pathologist [facility] Magnesium 0.9(A) 1.6 - 2.4 mg/dL Plasma Narrative Resulting Agency Comment [facility] Result [facility] Provider MD LAB BLOOD ORDERABLES Denisse l Result * Hepatic Function Panel (03/10/2025 9:29 AM EDT) Bilirubin, Direct 0.2 Bilirubin, Indirect 0.5 Alkaline Phosphatase 102 ALT 28 AST 26 Total Bilirubin 0.7 Total Protein 6.7 Plasma Narrative Resulting Agency Comment [facility] Result [facility] LAB BLOOD ORDERABLES Denisse l Result * (ABNORMAL) Renal Function Panel w/o EGFR (03/10/2025 9:29 AM EDT) Pathologist [facility] Glucose 111 BUN 13 CO2 28(A) 13 - 22 mmol/L Creatinine 1.30 Potassium 3.9 Sodium 138 Chloride 100 Phosphorus 5.0(A) 2.5 - 4.9 mg/dL Calcium 9.2 EGFR 61 mg/dL Albumin 4.5 3.5 - 5.0 g/dL Blood Narrative Resulting Agency Comment [facility] Result [facility] Provider MD LAB BLOOD ORDERABLES Denisse [...] 5.6 10^3/mL Blood Narrative Resulting Agency Comment [facility] us Historical Provider LAB BLOOD ORDERABLES Denisse l Result documented in this encounter Visit Diagnoses Not on filedocumented in this encounter Additional Health Concerns Infection Onset Date Last Indicated Resolved Time C. difficile 01/28/2025 01/28/2025 Assessment Noted Time PHQ-9 Depression Total Score: 2 12/11/19 9:00 AM EDT documented as of this encounter Care Teams Medical Receptionist Relationship Specialty Start Date End Date Enedina Mcguire NP [address] [place] [address] PCP - General Internal Medicine 10/05/24 Maureen Pantoja, ЮЛИЯ Txp Post Coordinator Transplant Hepatology 10/28/24 [place] Orosco MD [address] [place] [address] [address] [place] [address] Consulting Physician Transplant Hepatology 02/26/25 documented as of this encounter
--- OUTSIDE RECORDS SUMMARY | 2025-03-20 07:19 | XMS_ITS | Encounter Summary ---
Author Organization [facility] Address [address] [place] [address] Care Team Providers Care Vehicle Delivery Worker Name Role Phone Enedina Mcguire NP Primary Care Provider + [phone] Maureen Pantoja RN Unavailable Unavail able Chris Orosco MD Unavailable [phone] Source Comments This information has been disclosed [...] release of HIV test results or diagnoses. [id number] Health Reason for Visit * Reason Comments Critical Lab Results Encounter Details Date Type Department Care Team (Late st Contact Info) Description 03/10/2025 Telephone [facility] Liver Transplant at [address] [place] [address] Marisela Martinez MA Critical Lab [...] Recorded In the past 12 months has [employer], gas, oil, or water company threatened to [...] EDT Shivani called from pts outpt lab [facility] to report that pt has a critical [...] documented as of this encounter Care Teams Vehicle Delivery Worker Relationship Specialty Start Date End Date Enedina Mcguire NP [address] [place] [address] PCP - General Internal Medicine 10/05/24 Maureen Pantoja, ЮЛИЯ Txp Post Coordinator Transplant Hepatology 10/28/24 [place] Orosco MD [address] [place] [address] 320 [place] [address] Consulting Physician Transplant Hepatology 02/26/25 documented as of this encounter
--- OUTSIDE RECORDS SUMMARY | 2025-03-20 07:19 | XMS_ITS | Encounter Summary ---
Author Organization [facility] Address [address] [place] [address] Care Team Providers Care Media Developer Name Role Phone Enedina Mcguire APRN [...] Recorded In the past 12 months has [employer], gas, oil, or water [employer] threatened to shut off services in your [...] Brief Depression Severity Measure Score 0 10/02/2022 [facility] of Occupat ional Health - Occupational Stress [...] [facility] INTERNAL MEDICINE [address] [place] [address] Enedina Mcguire APRN [address] [place] [address] [phone] 05/21/2025 12:30 PM EST Office Visit [facility] PAIN MANAGEMENT [address] [address] Vazquez Christie PA-C [address] [place] [address] documented as of this encounter Visit Diagnoses Not on filedocumented in this encounter Additional Health Concerns Assessment Noted Time PHQ-2 Depression Total Score: 1 12/31/19 24 3:25 PM EDT documented as of this encounter Care Teams Media Developer Relationship Specialty Start Date End Date Enedina Mcguire APRN [address] [place] [address] [phone] PCP - General Nurse Practitioner 10/27/24 documented as of this encounter
--- OUTSIDE RECORDS SUMMARY | 2025-03-20 07:19 | XMS_ITS | Encounter Summary ---
[facility] Address [address] [place] [address] Care Team Providers Care Rn Imaging Name Role Phone Enedina Mcguire APRN Primary Care Provider + Encounter Details Date Type Department Care Team (Late st Contact Info) Description 03/02/2025 Telephone [facility] PAIN MANAGEMENT [address] [address] Georgina Rainey MA Social History [...] In the past 12 months has [employer], [employer], oil, or water [employer] threatened to shut off services in your [...] Brief Depression Severity Measure Score 0 10/02/2022 [facility] - Occupational Stress Questionnaire Answer Date [...] [facility] INTERNAL MEDICINE [address] [place] [address] Enedina Mcguire, HEALTH POLICY ANALYST [address] [place] [address] 05/21/2025 12:30 PM EST Office Visit [facility] PAIN MANAGEMENT [address] [phone] Vazquez Christie PA-C [address] [place] [phone] documented as of this encounter Visit Diagnoses Not on filedocumented in this encounter Additional Health Concerns Assessment Noted Time PHQ-2 Depression Total Score: 1 12/31/19 24 3:25 PM EDT documented as of this encounter Care Teams Rn Imaging Relationship Specialty Start Date End Date Enedina Mcguire APRN [address] [place] [address] PCP - General Nurse Practitioner 10/27/24 documented as of this encounter
--- OUTSIDE RECORDS SUMMARY | 2025-03-20 07:19 | XMS_ITS | Encounter Summary ---
Author Organization [facility] Address [address] [place] [address] Care Team Providers Care Log Roper Name Role Phone Enedina Mcguire NP Primary Care Provider + [phone] Maureen Pantoja RN Unavailable Unavail able Chris Orosco MD Unavailable [phone] Source Comments This information has been disclosed [...] release of HIV test results or diagnoses. [id number] Encounter Details Date Type Department Care Team (Late st Contact Info) Description 03/10/2025 Telephone [facility] Kidney Transplant at [address] [address] Lizeth Walden, RN Social History [...] Recorded In the past 12 months has [employer], gas, oil, or water [employer] threatened to shut off services in your [...] as of this encounter Care Teams Log Roper Relationship Specialty Start Date End Date Enedina Mcguire NP [address] [place] [address] PCP - General Internal Medicine 10/05/24 Maureen Pantoja RN Txp Post Coordinator Transplant Hepatology 10/28/24 [place] Orosco MD [address] [place] [address] 3200 [place] [address] Consulting Physician Transplant Hepatology 02/26/25 documented as of this encounter
--- OUTSIDE RECORDS SUMMARY | 2025-03-20 07:19 | XMS_ITS | Encounter Summary ---
[facility] Address [address] [place] [address] Care Team Providers Care Sheet Rocker Name Role Phone Enedina Mcguire APRN Primary Care Provider + Encounter Details Date Type Department Care Team ([facility] st Contact Info) Description 10/07/2024 Results Follow-Up [facility] INTERNAL MEDICINE [address] [place] [address] Enedina Mcguire APRN [address] [place], [place] [phone] Social History Tobacco Use Types Packs/Day Years [...] Recorded In the past 12 months has [employer], [employer], oil, or water [employer] threatened to shut off services in your [...] [facility] INTERNAL MEDICINE [address] [place] [address] Enedina Mcguire APRN [address] [place] [address] 05/21/2025 12:30 PM EST Office Visit [facility] PAIN MANAGEMENT 3000 [facility] [address] [place] [address] Vazquez Christie PA-C [address] [place] [address] [place] [address] documented as of this encounter Visit Diagnoses Not on filedocumented in this encounter Additional Health Concerns Assessment Noted Time PHQ-2 Depression Total Score: 1 12/31/19 24 3:25 PM EDT documented as of this encounter Care Teams Sheet Rocker Relationship Specialty Start Date End Date Enedina Mcguire APRN [address] [place] [address] [phone] PCP - General Nurse Practitioner 10/27/24 documented as of this encounter
--- OUTSIDE RECORDS SUMMARY | 2025-03-20 07:19 | XMS_ITS | Encounter Summary ---
Author Organization [facility] Address [address] [place] [address] Care Team Providers Care Restaurant Maintenance Technician Name Role Phone Enedina Mcguire NP Primary Care Provider + [phone] Maureen Pantoja RN Unavailable Unavail able Chris Orosco MD Unavailable [phone] Source Comments This information has been disclosed [...] release of HIV test results or diagnoses. [id number] Encounter Details Date Type Department Care Team (Late st Contact Info) Description 03/10/2025 Telephone [facility] Liver Transplant at [address] [address] Marlene Ro MA Social History [...] Recorded In the past 12 months has [employer], gas, oil, or water [employer] threatened to shut off services in your [...] 03/10/2025 12:54 PM EDT Outgoing call to [facility] to verify if a CMV test [...] documented as of this encounter Care Teams Restaurant Maintenance Technician Relationship Specialty Start Date End Date Enedina Mcguire NP [address] [place] [address] PCP - General Internal Medicine 10/05/24 Maureen Pantoja, ЮЛИЯ Txp Post Coordinator Transplant Hepatology 10/28/24 [place] Orosco MD [address] [place] [address] [place] [address] Consulting Physician Transplant Hepatology 02/26/25 documented as of this encounter
--- OUTSIDE RECORDS SUMMARY | 2025-03-20 07:19 | XMS_ITS | Encounter Summary ---
Author Organization [facility] Address [address] [place] [address] Care Team Providers Care Computer Systems Security Analyst Name Role Phone Enedina Mcguire NP Primary Care Provider + [phone] Maureen Pantoja RN Unavailable Unavail able [place] Orosco MD Unavailable [phone] Source Comments This information has been disclosed [...] release of HIV test results or diagnoses. [id number] Reason for Visit * Reason Comments Medication Refill Encounter Details Date Type Department Care Team (Late st Contact Info) Description 03/12/2025 Refill [facility] Liver Transplant at [address] [address] Lydia Sanchez MD [address] [place] [address] Liver/[place] [address] Encounter for therapeutic drug monitoring; S/P liver transplant ([facility]); Hypomagnesemia; Kidney transplant recipient; Hypertension, [...] the past 12 months has th e [employer], [employer], oil, or water [employer] threatened to shut off services in [...] as of this encounter Care Teams Computer Systems Security Analyst Relationship Specialty Start Date End Date Enedina Mcguire NP [address] [place] [address] PCP - General Internal Medicine 10/05/24 Maureen Pantoja, RN Txp Post Coordinator Transplant Hepatology 10/28/24 [place] Orosco MD [address] [place] [address] 3[address] [place] [address] Consulting Physician Transplant Hepatology 02/26/25 documented as of this encounter
--- OUTSIDE RECORDS SUMMARY | 2025-03-20 07:19 | XMS_ITS | Encounter Summary ---
Author Organization [facility] Address [address] [place] [address] Care Team Providers Care Ski Lift Operator Name Role Phone Enedina Mcguire APRN Primary Care Provider + Encounter Details Date Type Department Care Team ([facility] st Contact Info) Description 10/07/2024 Results Follow-Up [facility] INTER[facility] [address] [place] [address] Enedina Mcguire APRN [address] [place], [place] [id number] Social History Tobacco Use Types Packs/Day Years Used Date Smoking Tobacco: Former Cigarettes 4 20 Passive Smoke Exposure: Past Smokeless Tobacco: Current Comments:MARIJUANA USE ABOUT 2X PER WEEK - reports no use 08-05-2024 Alcohol Use Standard Drinks/Week Comments Not Currently 0 (1 standard drink = 0.6 oz pure alcohol) 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 [facility] Utilities Answer Date Recorded In the past 12 months has [employer], [employer], oil, or water [employer] threatened to shut off services in your [...] Brief Depression Severity Measure Score 0 10/02/2022 [facility] of Occupat ional Health [...] Visit [facility] [address] [place] [address] Enedina Mcguire APRN [address] [place] [address] 05/21/2025 12:30 PM EST Office Visit [facility] PAIN [facility]NAGEMENT [address] [facility] [address] [place] [address] Vazquez Christie PA-C [address] [place] [address] [place] [address] documented as of this encounter Visit Diagnoses Not on filedocumented in this encounter Additional Health Concerns Assessment Noted Time PHQ-2 Depression Total Score: 1 12/31/19 24 3:25 PM EDT documented as of this encounter Care Teams Ski Lift Operator Relationship Specialty Start Date End Date Enedina Mcguire APRN [address] [place] [phone] PCP - General Nurse Practitioner 10/27/24 documented as of this encounter
--- OUTSIDE RECORDS SUMMARY | 2025-03-20 07:19 | XMS_ITS | Encounter Summary ---
[facility] Organization [facility] Address [address] [place] [address] Care Team Providers Care Roll Scale Man Name Role Phone Enedina Mcguire APRN Primary Care Provider + Reason for Visit * Reason Comments Med Refill Encounter Details Date Type Department Care Team (Late st Contact Info) Description 09/12/2022 Refill [facility] GASTROENTEROLOGY [address] [facility] [address] [place] [address] Lj Tapia APRN [address] [place] [address] Social History Tobacco Use Types Packs/Day Years [...] or training? Not on file Preferred Language Tanzanian 07/03/2022 Sex and Gender Information Value Date Recorded Sex Assigned at Male 08/20/2024 8:28 PM EDT Legal Sex Male 7:45 AM EDT Gender Identity Not on file Sexual Orientation Not on file documented as of this encounter Plan of Treatment Upcoming Encounters Date Type Department Care Team (Late st Contact Info) Description 05/18/2025 2:30 PM EST Office Visit [facility] INTERNAL MEDICINE [address] [place] [phone] Enedina Mcguire APRN [address] [place] [address] 05/21/2025 12:30 PM EST Office Visit [facility] PAIN [facility]GEMENT [address] [address] Vazquez Christie PA-C [address] [facility] [address] [place], [place] [id number] documented as of this encounter Visit Diagnoses Not on filedocumented in this encounter Care Teams Roll Scale Man Relationship Specialty Start Date End Date Enedina Mcguire APRN [address] [place] [address] PCP - General Nurse Practitioner 10/27/24 documented as of this encounter
[2025-03-20 07:20] LABS: Microscopic, Urine URINE MICROSCOPIC (MICROSCOPIC)
--- OUTSIDE RECORDS SUMMARY | 2025-03-20 07:20 | XMS_ITS | Encounter Summary ---
Author Organization Healthcare Address [address] [place] [address] Care Team Providers Care Supervisor Powdered Sugar Name Role Phone Jony Conde MD Primary Care Provider [phone] Lj Tapia LAPPING MACHINE SET UP OPERATOR Unavailable [phone] Enedina Mcguire LAPPING MACHINE SET UP OPERATOR Primary Care Provider + Nuria Fall OPTICAL MECHANIC Unavailable Unavaila ble Encounter Details Date Type Department Care Team (Late st Contact Info) Description 07/04/2022 Orders Only External Location [address] [place] [address] Presley Montes De Oca MD [address] [place] [phone] Social History Tobacco Use Types Packs/Day Years [...] filedocumented in this encounter Care Teams Supervisor Powdered Sugar Relationship Specialty Start Date End Date Jony Conde MD [address] [facility] [address] [place] [address] PCP - General 07/18/22 12/03/22 Enedina Mcguire APRN [address] [place] [address] PCP - General 12/04/22 Lj Tapia APRN [address] [place] [address] Referring Physician Gastroenterology 07/18/22 Nuria Fall LPN [facility] TCM Nurse 07/24/24 08/23/24 documented as of this encounter
--- OUTSIDE RECORDS SUMMARY | 2025-03-20 07:20 | XMS_ITS | Encounter Summary ---
Author Organization Healthcare Address [address] [place] [address] Care Team Providers Care Silk Screen Painter Name Role Phone Jony Conde MD Primary Care Provider [phone] Lj Tapia MUD MIXER OPERATOR Unavailable [phone] Enedina Mcguire APRN Primary Care Provider + Nurai Fall PUMPER HEAD Unavailable Unavaila ble Encounter Details Date Type Department Care Team (Late st Contact Info) Description 07/02/2022 Orders Only External Location [address] [place] [address] Provider, External Social History Tobacco Use Types [...] on filedocumented in this encounter Care Teams Silk Screen Painter Relationship Specialty Start Date End Date Jony Conde MD 9 [facility] [address] [place], [place] [id number] PCP - General 07/18/22 12/03/22 Enedina Mcguire APRN [address] [place] [address] PCP - General 12/04/22 Lj Tapia APRN [address] [place] [address] Referring Physician Gastroenterology 07/18/22 Nuria Fall LPN [facility] TCM Nurse 07/24/24 08/23/24 documented as of this encounter
--- OUTSIDE RECORDS SUMMARY | 2025-03-20 07:20 | XMS_ITS | Clinical Summary ---
Author Organization Healthcare Address [address] [place] [address] Care Team Providers Care Dermatologist And Dermatopathologist Name Role Phone Lj Tapia Rohini RICKS Unavailable Eneidna Mcguire APRN Primary Care Provider + Allergies [...] answer 07/14/2024 How often do you attend [facility] or shinto services? Patient unable to answer 07/14/2024 Do you belong to any clubs o r organizations such as druze groups, unions, fraternal or athletic groups, or [...] Recorded Patient Health Questionnaire-2 Score 2 09/29/2024 [facility] of Occupat ional [...] drink first t deborah in the morning (EYE-COPY OPERATOR) to steady your nerves or to get rid of a hangover? 0 07/19/2024 CAGE Questionnaire Score 2 025 Utilities Answer Date Recorded In the past 12 months has th WAY[employer], gas, oil, or water company threatened to [...] 2 - 13+ 2-dose series) 10/11/2010 09/13/2010 [id number] Vaccine (4 - 2024- season) 2025 03/17/2021, [...] this topic Medical Devices Implanted Type Area Gas Meter Installer Helper Device Identifier Shelf Expiration Date Model / Serial / Lot Concerto [place] Coil-07/03/2022 Implanted:06/15 by Timmy Brunner MD (Quantity not on file) Coil Abdomen Description:Multiple Coil Co ncerto Pgla [place] Detach COILS implanted on 07/03/2022 by Timmy Brunner MD at [facility]--info can be found in Care Everywhere for [facility] as of 11/15/23 Dona Coil-07/03/2022 Implanted:06/15 by Timmy Brunner MD (Quantity not on file) Coil Abdomen [employer] Description:Coil Emb Dona 3.7/Implanted: Qty: 1 on 07/03/2022 by Timmy Brunner MD at [facility] Plate Plate N/A: Neck Plug Vasc Anton Emb Amplatzer Implanted:06/15 by Timmy Brunner MD (Quantity not on file) Plug Other Vein / / [id number] Description:Plug Vasc Anton Em b Ampltz .027 [id number] - [id number] Implanted: Qty: 1 on 07/03/2022 by Timmy Brunner MD at [facility] Stent Gastro Panc 5fr 5cm - [id number] Implanted:Qty: 1 on 11/20/2023 by Devang Mcghee, RN at [facility] Pancreas [id number] 08/13/2026 [id number] / / [id number] Procedures Procedure Name Priority Date/Time Associated Diagnosis [...] Reactive Non Reactive 07/14/2024 5:31 PM EST [facility] Comment:Screening for HIV 1 & 2 antibodies, and P24 antigen is NONREACTIVE. No confirmatory testing is required. Blood Venous blood specimen / Unknown Venipuncture / Unknown 07/14/2024 4:31 PM EST 07/14/2024 4:56 PM EST Laureano Salinas APRN, [facility] BLOOD ORDERA BLES Final Result Performing Organization Address City/[facility] Co de Phone Number [facility] [address] [place] [address] * Hepatitis C Antibody (07/14/2024 4:31 PM EST) [facility] Signature Hepatitis C Antibody Negative Negative 07/14/2024 5:27 PM EST [facility] Blood Venous blood specimen / Unknown Venipuncture / Unknown 07/14/2024 4:31 PM EST 07/14/2024 4:54 PM EST Laureano Salinas APRN, [facility] BLOOD ORDERA BLES Final Result Performing Organization Address City/[facility] de Phone Number [facility] [address] [place] [address] from Last 3 Months or Most Recently Relevant to Health Maintenance Insurance [facility] Advance Directives * Full Code (Latest Code Status on File) Date Activated Date Inactivated Comments 07/11/2024 11:04 PM 07/23/2024 6:27 PM Question Answer Comments Patient has decision-making capacity? Yes * Full Code Date Activated Date Inactivated Comments 11/14/2023 10:15 PM 11/27/2023 9:08 PM Question Answer Comments Patient has decision-making capacity? Yes Care Teams Dermatologist And Dermatopathologist Relationship Specialty Start Date End Date Enedina Mcguire APRN [address] [place] [address] PCP - General 12/04/22 Lj Tapia APRN [address] [place] [address] Referring Physician Gastroenterology 07/18/22
--- OUTSIDE RECORDS SUMMARY | 2025-03-20 07:20 | XMS_ITS | Encounter Summary ---
Author Organization Healthcare Address [address] [place] [address] Care Team Providers Care Ophthalmology Assistant Name Role Phone Jony Conde MD Primary Care Provider [phone] Lj Tapia FILTER TANK TENDER Unavailable [phone] Enedina Mcguire FILTER TANK TENDER Primary Care Provider + Nuria Fall MEDICAL OFFICE ASSISTANT INSTRUCTOR Unavailable Unavaila ble Encounter Details Date Type Department Care Team (Late st Contact Info) Description 07/04/2022 Orders Only External Location [address] [place] [address] Presley Montes De Oca MD [address] [place] [id number] Social History Tobacco Use Types Packs/Day Years [...] on filedocumented in this encounter Care Teams Ophthalmology Assistant Relationship Specialty Start Date End Date Jony Conde MD [address] [place] [address] [address] [place], [place] [phone] PCP - General 07/18/22 12/03/22 Enedina Mcguire APRN [address] [place] [address] PCP - General 12/04/22 Lj Tapia APRN [address] [place] [address] [phone] Referring Physician Gastroenterology 07/18/22 Nuria Fall LPN [facility] TCM Nurse 07/24/24 08/23/24 documented as of this encounter
--- OUTSIDE RECORDS SUMMARY | 2025-03-20 07:20 | XMS_ITS | Clinical Summary ---
Author Organization [facility] Address [address] [place] [address] Care Team Providers Care Fishing Floats Assembler [...] skin as directed by provider Daily. Active FLUoxetine (PROzac) 20 MG capsule [...] Daily. Active vitamin D (ERGOCALCIFEROL) 1.25 MG (68363 UT) capsule capsuleIndication s:Vitamin D deficiency Take [...] mouth 2 (Two) Times a Day. Active levothyroxine (SYNTHROID, LEVOTHROID) 75 MCG tabletIndications :Acquired hypothyroidism Take 1 tablet by mouth Daily. 90 tablet Active levothyroxine (SYNTHROID, LEVOTHROID) 75 MCG tabletIndications :Acquired hypothyroidism Take 1 tablet by mouth Daily. 30 tablet 2024 Discontinued(R eorder) acetaminophen (TYLENOL) 325 MG tablet Take 3 tablets by mouth Every 8 (Eight) Hours As Needed. 2024 Testosterone Enanthate 75 MG/0.5ML solution auto-injectorIndi cations:Low [...] Encounters Date Type Department Care Team Description 03/19/[address] [facility] INTERNAL MEDICINE [address] [place] [address] Enedina Mcguire APRN Low testosterone in male 03/19/[address] [facility] PAIN MANAGEMENT [address] [facility] [address] [place] [phone] Tye Song MD 03/16/[address] [facility] INTERNAL MEDICINE [address] [place] [address] Enedina Mcguire APRN Erectile dysfunction, unspecified erectile dysfunction type 03/15/[address] [facility] INTER[facility] [address] [place] [address] Enedina Mcguire APRN Acquired hypothyroidism 03/03/2025 1:45 PM EDT Office Visit [facility] PAIN [facility]NAGEMENT [address] [facility] [address] [place] [address] Vazquez Christie PA-C Occipital neuralgia of right side (Primary Dx); Cervical spondylosis without myelopathy; Cervical pain (neck); Long-term use of high-risk medication; Cervical radiculopathy; Therapeutic drug monitoring; Chronic pain syndrome 03/03/2025 Travel 03/02/[address] [facility] PAIN MANAGEMENT [address] [address] Georgina Rainey MA 02/23/[address] [facility] INTERNAL MEDICINE [address] [place] [address] Enedina Mcguire, NAILHEAD SETTER 02/23/2025 Results Follow-Up [facility] INTER[facility] [address] [place] [address] Enedina Mcguire, NAILHEAD SETTER 02/20/[address] [facility] INTER[facility] [address] [place] [phone] Enedina Mcguire, NAILHEAD SETTER Results 02/20/[address] [facility] PAIN MANAGEMENT [address] [address] Georgina Rainey MA 02/19/2025 7:45 AM EDT Outside Facility Service [facility] PAIN MANAGEMENT [address] [address] Tye Song MD 02/19/[address] [facility] PAIN [facility]NAGEMENT [address] [address] Tye Song MD 02/17/2025 3:15 PM EDT Office Visit [facility] INTERNAL MED[facility]INE [address] [place] [address] Enedina Mcguire, NAILHEAD SETTER Encounter for follow-up (Primary Dx); Kidney transplant recipient; Liver transplant recipient; Vitamin D deficiency; Low testosterone in male; History of systemic steroid therapy 02/17/[address] [facility] INTER[facility] [address] [place] [phone] Shayla Enedina RAMBO Oscar 02/17/2025 Travel 02/11/[address] [facility] PAIN MANAGEMENT [address] [facility] [address] [place] [address] Tye Song MD [facility]- INJECTION SCHEDULE 01/08/[address] [facility] PAIN MANAGEMENT [address] [facility] [address] [place] [address] Vazquez Christie PA-C Appointment 01/01/2025 2:15 PM EDT Office Visit [facility] PAIN [facility]GEMENT [address] [facility] [address] [place] [address] Vazquez Christie PA-C Cervical radiculopathy (Primary Dx); Long-term use of high-risk medication; Cervical spondylosis without myelopathy; Cervical pain (neck); Therapeutic drug monitoring; Chronic pain syndrome 01/01/2025 Travel from Last 3 Months Immunizations Immunization [...] Brief Depression Severity Measure Score 0 10/02/2022 [facility] of Occupat ional [facility] - Occupational Stress Questionnaire Answer Date [...] [facility] INTERNAL MED[facility]INE [address] [place] [address] Shayla Enedina Celestina, NAILHEAD SETTER [address] [place] [address] 05/21/2025 12:30 PM EST Office Visit [facility] PAIN MANAGEMENT [address] [facility] [address] [place] [address] Vazquez Christie PA-C [address] [facility] [address] [place] [address] Health Maintenance Due Date Last [...] 0-49 Discontinued Medical Devices Implanted Type Area Sales Effectiveness Manager Device Identifier Shelf Expiration Date Model / Serial / Lot Coil Concerto Pgla Hel Detach Sys 10mm 30cm - [id number] Implanted:Qty: 1 on 07/03/2022 by Timmy Brunner MD at [facility] Implant Left: Vein EV3 A [employer] [id number] / / [id number] Description:Coil is in the s hort gastric vein Coil Concerto Nyl Panora Detach Sys 10mm 30cm - [id number] Implanted:Qty: 1 on 07/03/2022 by Timmy Brunner MD at [facility] Implant Left: Vein EV3 A [employer] [id number] / / [id number] Description:Short gastric ve in Coil Concerto Nyl Panora Detach Sys 10mm 30cm - [id number] Implanted:Qty: 1 on 07/03/2022 by Timmy Brunner MD at [facility] Implant Left: Vein EV3 A [employer] [id number] / / [id number] Description:Short gasrtic ve in Coil Concerto Nyl Panora Detach Sys 10mm 30cm - [id number] Implanted:Qty: 1 on 07/03/2022 by Timmy Brunner MD at [facility] Implant Left: Vein EV3 A [employer] [id number] / / [id number] Description:Short gastric ve in Coil Concerto Nyl Panora Detach Sys 8mm 30cm - [id number] Implanted:Qty: 1 on 07/03/2022 by Timmy Brunner MD at [facility] Implant Left: Vein EV3 A [employer] [id number] / / [id number] Description:Short gastric ve in Coil Concerto Nyl Panora Detach Sys 8mm 30cm - [id number] Implanted:Qty: 1 on 07/03/2022 by Timmy Brunner MD at [facility] Implant Left: Vein EV3 A [employer] [id number] / / [id number] Description:Short gastric ve in Sys Del Liq Emb Trufill Nbca 1g Vl - [id number] Implanted:Qty: 1 on 07/03/2022 by Timmy Brunner MD at [facility] Implant Left: Vein [facility] [facility] [id number] / / [id number] Description:Short gastric ve in Plug Vasc Anton Emb Ampltz .027 [id number] - [id number] Implanted:Qty: 1 on 07/03/2022 by Timmy Brunner MD at [facility] Implant Left: Vein [employer] [id number] / / [id number] Description:Coronary vein Coil Concerto Nyl Panora Detach Sys 8mm 30cm - [id number] Implanted:Qty: 1 on 07/03/2022 by Timmy Brunner MD at [facility] Implant Left: Vein EV3 A [employer] [id number] / / [id number] Description:CORONARY VEIN Gelatin Emb Embocube 5.02mm 50mg Red - [id number] Implanted:Qty: 1 on 07/03/2022 by Timmy Brunner MD at [facility] Implant Left: Vein [employer] [id number] / / [id number] Description:SHORT GASTRIC VE IN Coil Emb Dona 3.7/Lp .035in 14cm 12mm - [id number] Implanted:Qty: 1 on 07/03/2022 by Timmy Brunner MD at [facility] Implant Left: Vein [employer] [id number] / / [id number] Description:SHORT GASTRIC VE IN Coil Concerto Pgla Panora Detach Sys 12mm 30cm - [id number] Implanted:Qty: 1 on 07/03/2022 by Timmy Brunner MD at [facility] Implant Left: Vein EV3 A [employer] [id number] / / [id number] Description:Short gastric ve in Coil Concerto Nyl Panora Detach Sys 8mm 30cm - [id number] Implanted:Qty: 1 on 07/03/2022 by Timmy Brunner MD at [facility] Implant Left: Vein EV3 A [employer] [id number] / / [id number] Description:SHORT GASTRIC VE IN Coil Concerto Nyl Panora Detach Sys 8mm 30cm - [id number] Implanted:Qty: 1 on 07/03/2022 by Timmy Brunner MD at [facility] Implant Left: Vein EV3 A [employer] [id number] / / [id number] Description:Short gastric ve in Coil Concerto Nyl Panora Detach Sys 8mm 30cm - [id number] Implanted:Qty: 1 on 07/03/2022 by Timmy Brunner MD at [facility] Implant Left: Vein EV3 A [employer] [id number] / / [id number] Description:Short gastric ve in Coil Concerto Pgla Hel Detach Sys 14mm 40cm - [id number] Implanted:Qty: 1 on 07/03/2022 by Timmy Brunner MD at [facility] Implant Left: Vein EV3 A [employer] [id number] / / [id number] Description:Short gastric ve in Coil Concerto Pgla Hel Detach Sys 14mm 40cm - [id number] Implanted:Qty: 1 on 07/03/2022 by Timmy Brunner MD at [facility] Implant Left: Vein EV3 A [employer] [id number] / / [id number] Description:Short gastric ve in Coil Concerto Pgla Panora Detach Sys 14mm 30cm - [id number] Implanted:Qty: 1 on 07/03/2022 by Timmy Brunner MD at [facility] Implant Left: Vein EV3 A [employer] [id number] / / [id number] Description:Short gastric ve in Coil Concerto Pgla Panora Detach Sys 14mm 30cm - [id number] Implanted:Qty: 1 on 07/03/2022 by Timmy Brunner MD at [facility] Implant Left: Vein EV3 A [employer] [id number] / / [id number] Description:Short gastric ve in Coil Concerto Pgla Panora Detach Sys 14mm 30cm - [id number] Implanted:Qty: 1 on 07/03/2022 by Timmy Brunner MD at [facility] Implant Left: Vein EV3 A [employer] [id number] / / [id number] Description:Short gastric ve in Procedures Procedure Name Priority Date/Time Associated Diagnosis Comments SCANNED - LABS 02/23/2025 HEPATITIS PANEL, ACUTE Add-On 07/08/2024 10:33 PM EST LIPID PANEL Routine 10/15/2023 4:16 PM EDT Mixed hyperlipidemia from Last 3 Months or Most Recently Relevant to Health Maintenance Results * LABS SCANNED (02/23/2025) us Enedina Mcguire APRN LAB BLOOD ORDERABLES Fin al Result * Hepatitis Panel, Acute (07/08/2024 10:33 PM EST) Hepatitis B Surface Ag Non-Reacti ve Non-Reacti ve 07/09/2024 2:07 PM EST [facility] Hep A IgM Non-Reacti ve Non-Reacti ve 07/09/2024 2:07 PM EST [facility] Hep B C IgM Non-Reacti ve Non-Reacti ve 07/09/2024 2:07 PM EST [facility] Hepatitis C Ab Non-Reacti ve Non-Reacti ve 07/09/2024 2:07 PM EST [facility] Blood Line / Unknown 07/08/2024 10 :33 PM EST 07/08/2024 10:42 PM EST Narrative [facility] - 07/09/2024 2:07 PM EST Results may be falsely decreased if patient taking Biotin. Chiquis JACOME LAB BLOOD ORDERABLES Final Resu lt [facility]
[address] [place] [address], * (ABNORMAL) Lipid Panel (10/15/2023 4:16 PM EDT) Total Cholesterol 234(H) 0 - 200 mg/dL 10/16/2023 2:33 AM EDT [facility] Triglycerides 203(H) 0 - 150 mg/dL 10/16/2023 2:33 AM EDT [facility] HDL Cholesterol 41 40 - 60 mg/dL 10/16/2023 2:33 AM EDT [facility] LDL Cholesterol 156(H) 0 - 100 mg/dL 10/16/2023 2:33 AM EDT [facility] VLDL Cholesterol 37 5 - 40 mg/dL 10/16/2023 2:33 AM EDT [facility] LDL/HDL Ratio 3.72 10/16/2023 2:33 AM EDT [facility] Blood Venipuncture / Unknown 10/15/2023 4:16 PM EDT 10/15/2023 4:16 PM EDT Narrative [facility] - 10/16/2023 2:33 AM EDT [...] mg/dL Very High >189 mg/dL Enedina Mcguire NAILHEAD SETTER LAB BLOOD ORDERABLES Fin al Result [facility]
[address] [place] [address], from Last 3 Months or Most Recently Relevant to Health [place] [id number] [facility] Advance Directives * CPR (Attempt to [...] Of Support Discussed With: Patient Care Teams Fishing Floats Assembler Relationship Specialty Start Date End Date Enedina Mcguire APRN [address] [place] [place] [address] PCP - General Nurse Practitioner 10/27/24
--- OUTSIDE RECORDS SUMMARY | 2025-03-20 07:20 | XMS_ITS | Encounter Summary ---
Author Organization Healthcare Address [address] [place] [address] Care Team Providers Care Welder Apprentice Gas Name Role Phone Jony Conde MD Primary Care Provider [phone] Lj Tapia STRATEGY LEAD Unavailable [phone] Enedina Mcguire STRATEGY LEAD Primary Care Provider + Nuria Fall LIQUOR MERCHANT Unavailable Unavaila ble Encounter Details Date Type Department Care Team (Late st Contact Info) Description 07/03/2022 Orders Only External Location [address] [place] [address] Presley Montes De Oca MD [address] [place] [id number] Social History Tobacco Use Types Packs/Day Years [...] filedocumented in this encounter Care Teams Welder Apprentice Gas Relationship Specialty Start Date End Date Jony Conde MD [address] [place] [address] [address] [place] [address] PCP - General 07/18/22 12/03/22 Enedina Mcguire APRN [address] [place] [address] PCP - General 12/04/22 Lj Tapia APRN [facility] [place], [place] [id number] Referring Physician Gastroenterology 07/18/22 Nuria Fall LPN [facility] TCM Nurse 07/24/24 08/23/24 documented as of this encounter
--- OUTSIDE RECORDS SUMMARY | 2025-03-20 07:22 | XMS_ITS | Encounter Summary ---
Author Organization [facility] Address [address] [place] [address] Care Team Providers Care Township Supervisor Name Role Phone Enedina Mcguire NP Primary Care Provider + [phone] Maureen Pantoja RN Unavailable Unavail able Chris Orosco MD Unavailable [phone] Source Comments This information has been disclosed [...] release of HIV test results or diagnoses. [id number] Encounter Details Date Type Department Care Team (Late st Contact Info) Description 03/16/2025 Telephone [facility] Kidney Transplant at [address] [address] Lizeth Walden, RN Social History [...] Recorded In the past 12 months has [employer], gas, oil, or water [employer] threatened to shut off services in your [...] Telephone Encounter - Lizeth Walden RN - 03/16/2025 1:47 PM EST Reviewed labs with Dr. Gonzalez: Latest Reference Range & Units 03/13/25 14:32 Magnesium 1.6 - 2.4 mg/dL 1.3 ! (E) !: Data is abnormal (E): External lab result [facility] from 03/10 (in media) Plan: No infusion for mag, continue current dose 2 tabs tid Any symptoms of uti? If none nothing to do The patient has been notified of this information and all questions answered. Patient is asymptomatic for UTI, no further changes. documented in this encounter Plan of Treatment Not on file documented as of this encounter Visit Diagnoses Not on filedocumented in this encounter Additional Health Concerns Infection Onset Date Last Indicated Resolved Time C. difficile 01/28/2025 01/28/2025 Assessment Noted Time PHQ-9 Depression Total Score: 2 12/11/19 9:00 AM EDT documented as of this encounter Care Teams Township Supervisor Relationship Specialty Start Date End Date Enedina Mcguire NP [address] [place] [address] PCP - General Internal Medicine 10/05/24 Maureen Pantoja RN Txp Post Coordinator Transplant Hepatology 10/28/24 Chris Orosco MD [address] [place] [address] [address] [place] [address] Consulting Physician Transplant Hepatology 02/26/25 documented as of this encounter
--- OUTSIDE RECORDS SUMMARY | 2025-03-20 07:22 | XMS_ITS | Encounter Summary ---
Author Organization [facility] Address [address] [place] [address] Care Team Providers Care Count Team Member Name Role Phone Enedina Mcguire NP Primary Care Provider + [phone] Maureen Pantoja RN Unavailable Unavail able Source [...] release of HIV test results or diagnoses. [id number] Health Encounter Details Date Type Department Care Team (Late st Contact Info) Description 01/27/2025 Telephone [facility] Liver Transplant at [address] [address] Marlene Ro MA Social History [...] Recorded In the past 12 months has [employer], gas, oil, or water [employer] threatened to shut off services in your [...] AM EDT Called and spoke to Gladys, trapper bird manager search, and taran Rosario about his 1 time [...] documented as of this encounter Care Teams Count Team Member Relationship Specialty Start Date End Date Enedina Mcguire NP [address] [place] [address] PCP - General Internal Medicine 10/05/24 Maureen Pantoja, RN Txp Post Coordinator Transplant Hepatology 10/28/24 documented as of this encounter
--- OUTSIDE RECORDS SUMMARY | 2025-03-20 07:22 | XMS_ITS | Encounter Summary ---
Author Organization [facility] Address [address] [place] [address] Care Team Providers Care Blast Furnace Helper Name Role Phone Enedina Mcguire NP Primary Care Provider + [phone] Maureen Pantoja RN Unavailable Unavail able Chris Orosco MD Unavailable [phone] Source Comments This information has been disclosed [...] release of HIV test results or diagnoses. [id number] Encounter Details Date Type Department Care Team (Late st Contact Info) Description 03/16/2025 Telephone [facility] Liver Transplant at [address] [address] Mitzy Gill MA Social History [...] Recorded In the past 12 months has [employer], gas, oil, or water company threatened to [...] as of this encounter Progress Notes * Mitzy Gill MA - 03/16/2025 8:23 AM EST Pt LVM on [id number] stating he wanted to know if he still needs IV Mg. Pt states his Mg from 03/10 was low, but he repeated labs on 03/13 and his Mg level was 1.3. Pt requests return call to advise. documented in this encounter Plan of Treatment Not on file documented as of this encounter Visit Diagnoses Not on filedocumented in this encounter Additional Health Concerns Infection Onset Date Last Indicated Resolved Time C. difficile 01/28/2025 01/28/2025 Assessment Noted Time PHQ-9 Depression Total Score: 2 12/11/19 9:00 AM EDT documented as of this encounter Care Teams Blast Furnace Helper Relationship Specialty Start Date End Date Enedina Mcguire NP [address] [place] [address] PCP - General Internal Medicine 10/05/24 Maureen Pantoja, ЮЛИЯ Txp Post Coordinator Transplant Hepatology 10/28/24 Chris Orosco MD [address] [facility] [address] [place] [address] Consulting Physician Transplant Hepatology 02/26/25 documented as of this encounter
--- OUTSIDE RECORDS SUMMARY | 2025-03-20 07:22 | XMS_ITS | Encounter Summary ---
Author Organization [facility] Address [address] [place] [address] Care Team Providers Care Biophysics Professor Name Role Phone Enedina Mcguire NP Primary Care Provider [phone] Maureen Pantoja RN Unavailable Unavail able Source [...] release of HIV test results or diagnoses. [id number] Health Encounter Details Date Type Department Care Team (Late st Contact Info) Description 01/20/2025 Chart Note [facility] Liver Transplant at [address] [place] [address] Marlene Ro MA 01/20 Labs entered from [facility] Social [...] Recorded In the past 12 months has [employer], gas, oil, or water [employer] threatened to shut off services in [...] were not included. 01/20 Labs entered from [facility] documented [...] Tacrolimus level (01/20/2025 12:03 PM EDT) Pathologist [facility] Tacrolimus Lvl 11.3 6 - 15 ng/mL Whole Blood Result [facility] Provider LAB BLOOD ORDERABLES Denisse l Result * (ABNORMAL) Magnesium (01/20/2025 12:03 PM EDT) [facility] Magnesium 1.1(A) 1.6 - 2.4 mg/dL Plasma Narrative Resulting Agency Comment [facility] Result [facility] LAB BLOOD ORDERABLES Denisse l Result * (ABNORMAL) Renal Function Panel w/o EGFR (01/20/2025 12:03 PM EDT) [facility] Glucose 101 BUN 14 CO2 23(A) 13 - 22 mmol/L Creatinine 1.10 Potassium 3.8 Sodium 141 Chloride 106 Phosphorus 4.2 2.5 - 4.9 mg/dL Calcium 10.2 EGFR 74 mg/dL Albumin 4.9 3.5 - 5.0 g/dL Blood Narrative Resulting Agency Comment [facility] Result [facility] LAB BLOOD ORDERABLES Denisse l Result * Creatinine, urine, random (01/20/2025 12:03 PM EDT) [facility] Creatinine, Urine 78 Urine Narrative Resulting Agency Comment [facility] Result [facility] Provider URINE ORDERABLES Final Re sult * (ABNORMAL) Urinalysis w/Rfl to Microscopic (01/20/2025 12:03 PM EDT) [facility] Glucose, UA Negative Negative Ketones, UA Negative Negative Blood, UA Negative Negative Bilirubin, UA Negative Negative Urobilinogen, UA Normal Normal Protein, UA Trace(A) Negative Nitrite, UA Negative Negative pH, UA 5.5 4.5 - 8.0 Specific [place], UA 1.020 1.005 - 1.030 Clarity, UA Clear Clear Color, UA Yellow Light Yellow, Yellow Urine Narrative Resulting Agency Comment [facility] Result [facility] Provider URINE ORDERABLES Final Re sult [...] 10^3/mL Blood Narrative Resulting Agency Comment [facility] Result [facility] Provider LAB BLOOD ORDERABLES Denisse l Result * Urine Protein, Tot, Random (w/o Creat) (01/20/2025 12:03 PM EDT) Total Protein, Ur 25.0 Urine Narrative Resulting Agency Comment [facility] Result [facility] Provider URINE ORDERABLES Final Re sult * Hepatic Function Panel (01/20/2025 12:03 PM EDT) Bilirubin, Direct 0.2 Bilirubin, Indirect 0.6 Alkaline Phosphatase 52 ALT 20 AST 28 Total Bilirubin 0.8 Total Protein 7.1 Plasma Narrative Resulting Agency Comment [facility] us Historical Provider LAB BLOOD [...] documented as of this encounter Care Teams Biophysics Professor Relationship Specialty Start Date End Date Enedina Mcguire NP [address] [place] [address] PCP - General Internal Medicine 10/05/24 Maureen Pantoja, ЮЛИЯ Txp Post Coordinator Transplant Hepatology 10/28/24 documented as of this encounter
--- OUTSIDE RECORDS SUMMARY | 2025-03-20 07:22 | XMS_ITS | Encounter Summary ---
Author Organization [facility] Address [address] [place] [address] Care Team Providers Care Auto Refinisher Name Role Phone Enedina Mcguire NP Primary Care Provider + [phone] Maureen Pantoja RN Unavailable Unavail able Chris Orosco MD Unavailable [phone] Source Comments This information has been disclosed [...] release of HIV test results or diagnoses. [id number] Encounter Details Date Type Department Care Team (Late st Contact Info) Description 03/16/2025 Chart Note [facility] Liver Transplant at [place] [id number] [address] Marlene Ro MA Magnesium Level from 03/13 Social History Tobacco Use Types Packs/Day Years Used Date Smoking Tobacco: Former Cigarettes Smokeless Tobacco: Current Alcohol Use Standard Drinks/Week Comments Yes 0 (1 standard drink = 0.6 oz pure alcohol) History of alcohol abuse, reports no use in 3 week- typically endorses use as 4 glasses of wine a days Utilities Answer Date Recorded In the past 12 months has [employer], gas, oil, or water [employer] threatened to shut off services in your [...] Progress Notes * Marlene Ro MA - 03/16/2025 9:58 AM EST Magnesium Level from 03/13 documented in this encounter Plan of Treatment Not on file documented as of this encounter Procedures Procedure Name Priority Date/Time Associated Diagnosis Comments MAGNESIUM Routine 03/13/2025 2:32 PM EDT documented in this encounter Results * (ABNORMAL) Magnesium (03/13/2025 2:32 PM EDT) Magnesium 1.3(A) 1.6 - 2.4 mg/dL Plasma us Historical Provider LAB BLOOD ORDERABLES Denisse l Result documented in this encounter Visit Diagnoses Not on filedocumented in this encounter Additional Health Concerns Infection Onset Date Last Indicated Resolved Time C. difficile 01/28/2025 01/28/2025 Assessment Noted Time PHQ-9 Depression Total Score: 2 12/11/19 9:00 AM EDT documented as of this encounter Care Teams Auto Refinisher Relationship Specialty Start Date End Date Enedina Mcguire NP [address] [place] [address] PCP - General Internal Medicine 10/05/24 Maureen Pantoja, ЮЛИЯ Txp Post Coordinator Transplant Hepatology 10/28/24 Chris Orosco MD [address] [place] [address] [address] [place] [address] Consulting Physician Transplant Hepatology 02/26/25 documented as of this encounter
--- OUTSIDE RECORDS SUMMARY | 2025-03-20 07:22 | XMS_ITS | Encounter Summary ---
Author Organization [facility] Address [address] [place] [address] Care Team Providers Care Fleet Maintenance Foreman Name Role Phone Enedina Mcguire NP Primary Care Provider + [phone] Maureen Pantoja RN Unavailable Unavail able Source [...] release of HIV test results or diagnoses. [id number] Reason for Visit * Reason Onset Date Comments Medication Refill 01/21/2025 Encounter Details Date Type Department Care Team (Late st Contact Info) Description 01/21/2025 Refill [facility] Liver Transplant at [place] [address] [place] [address] Lydia Sanchez MD [address] [place] [address] Liver/[place] [address] Encounter for therapeutic drug monitoring; S/P liver transplant ([facility]); Hypomagnesemia; Kidney transplant recipient; Hypertension, [...] 01/06/2025 Leisa Juarez MD Next appointment: 02/03/2025 [facility] Last labs: Lab Results Component Value Date [...] for therapeutic drug monitoring S/P liver transplant ([facility]) Hypomagnesemia Disorders of magnesium metabolism [...] documented as of this encounter Care Teams Fleet Maintenance Foreman Relationship Specialty Start Date End Date Enedina Mcguire NP [address] [place] [address] PCP - General Internal Medicine 10/05/24 Maureen Pantoja RN Txp Post Coordinator Transplant Hepatology 10/28/24 documented as of this encounter
--- OUTSIDE RECORDS SUMMARY | 2025-03-20 07:22 | XMS_ITS | Encounter Summary ---
Author Organization [facility] Address [address] [place] [address] Care Team Providers Care Reexaminer Name Role Phone Enedina Mcguire NP Primary Care Provider + [phone] Maureen Pantoja RN Unavailable Unavail able Source [...] release of HIV test results or diagnoses. [id number] Reason for Visit * Reason Onset Date Comments Medication Refill 01/21/2025 Encounter Details Date Type Department Care Team (Late st Contact Info) Description 01/21/2025 Refill [facility] Liver Transplant at [address] [address] Harvey Domínguez III, MD [address] [place] [address] Encounter for therapeutic drug monitoring; S/P liver transplant ([facility]); Hypomagnesemia; Kidney transplant recipient; Hypertension, unspecified [...] the past 12 months has th e [employer], gas, oil, or water company threatened to [...] 1 or 2 01/28/2025 12:00 AM EDT iGnette Mock RN Q3: How often do you have six or more drinks on one occasion? Weekly 01/28/2025 12:00 AM EDT Marixa Mock RN documented as of this encounter Plan of Treatment Not on file documented as of this encounter Visit Diagnoses Diagnosis Encounter for therapeutic drug monitoring S/P liver transplant ([facility]) Hypomagnesemia Disorders of magnesium metabolism Kidney [...] documented as of this encounter Care Teams Reexaminer Relationship Specialty Start Date End Date Enedina Mcguire NP [address] [place] [address] PCP - General Internal Medicine 10/05/24 Maureen Pantoja, RN Txp Post Coordinator Transplant Hepatology 10/28/24 documented as of this encounter
--- OUTSIDE RECORDS SUMMARY | 2025-03-20 07:23 | XMS_ITS | Encounter Summary ---
Author Organization [facility] Address [address] [place] [address] Care Team Providers Care Technical Aide Name Role Phone Enedina Mcguire NP Primary Care Provider + [phone] Maureen Pantoja RN Unavailable Unavail able Chris Orosco MD Unavailable [phone] Source Comments This information has been disclosed [...] release of HIV test results or diagnoses. [id number] Health Reason for Visit * Reason Comments Results Encounter Details Date Type Department Care Team (Late st Contact Info) Description 03/06/2025 Telephone [facility] Liver Transplant at [address] [address] Maureen Pantoja, ЮЛИЯ Results Social [...] past 12 months has [employer], gas, oil, or water company threatened [...] as of this encounter Care Teams Technical Aide Relationship Specialty Start Date End Date Enedina Mcguire NP [address] [place] [address] PCP - General Internal Medicine 10/05/24 Maureen Pantoja, ЮЛИЯ Txp Post Coordinator Transplant Hepatology 10/28/24 Chris Orosco MD [address] [facility] 3[address] [place] [address] Consulting Physician Transplant Hepatology 02/26/25 documented as of this encounter
--- OUTSIDE RECORDS SUMMARY | 2025-03-20 07:23 | XMS_ITS | Encounter Summary ---
Author Organization [facility] Address [address] [place] [address] Care Team Providers Care Warehouse Shipping Supervisor Name Role Phone Enedina Mcguire NP Primary Care Provider + [phone] Maureen Pantoja RN Unavailable Unavail able Chris Orosco MD Unavailable [phone] Source Comments This information has been disclosed [...] release of HIV test results or diagnoses. [id number] Encounter Details Date Type Department Care Team (Late st Contact Info) Description 03/04/2025 Chart Note [facility] Liver Transplant at [place] [address] [address] Marlene Ro MA 03/04 Labs entered from [facility] Social [...] Recorded In the past 12 months has [employer], gas, oil, or water company threatened to [...] Progress Notes * Marlene Ro MA - 03/04/2025 2:06 PM EDT Images from the original note were not included. 03/04 Labs entered from [facility] documented in this encounter Plan of Treatment Not on file documented as of this encounter Procedures Procedure Name Priority Date/Time Associated Diagnosis Comments PHATIDYLETHANOL (PETH) Routine 11:29 AM EDT URINE PROTEIN, TOTAL, RANDOM (W/O CREATININE) Routine 03/04/2025 11:29 AM EDT HEPATIC FUNCTION PANEL Routine 11:29 AM EDT TACROLIMUS LEVEL Routine 03/04/2025 [...] in this encounter Results * Phatidylethanol (PEth) (03/04/2025 11:29 AM EDT) Phosphatidylethanol (PEth) Positive 587 Whole Blood Result [facility] Provider LAB BLOOD ORDERABLES Denisse l Result * Tacrolimus level (03/04/2025 11:29 AM EDT) Tacrolimus Lvl 14.6 6 - 15 ng/mL Whole Blood Result [facility] Provider LAB BLOOD ORDERABLES Denisse l Result * Urine culture (03/04/2025 11:29 AM EDT) Pathologist [facility] Urine Culture, Comprehensive no growth after 48 hours URINE SPECIMEN / Unknown Result [facility] MICROBIOLOGY - GENERAL OR DERABLES Final Result * (ABNORMAL) Magnesium (03/04/2025 11:29 AM EDT) Pathologist [facility] Magnesium 1.4(A) 1.6 - 2.4 mg/dL Plasma Narrative Resulting Agency Comment [facility] Result [facility] LAB BLOOD ORDERABLES Denisse l Result * (ABNORMAL) Renal Function Panel w/o EGFR (03/04/2025 11:29 AM EDT) Glucose 120 BUN 18 CO2 27(A) 13 - 22 mmol/L Creatinine 1.20 Potassium 3.7 Sodium 138 Chloride 98 Phosphorus 4.4 2.5 - 4.9 mg/dL Calcium 9.4 EGFR 67 mg/dL Albumin 4.8 3.5 - 5.0 g/dL Blood Narrative Resulting Agency Comment [facility] Result [facility] LAB BLOOD ORDERABLES Denisse l Result * Creatinine, urine, random (03/04/2025 11:29 AM EDT) Creatinine, Urine 111 Urine Narrative Resulting Agency Comment [facility] Provider URINE ORDERABLES Final Re sult * (ABNORMAL) Urinalysis w/Rfl to Microscopic (03/04/2025 11:29 AM EDT) Pathologist [facility] Glucose, UA Negative Negative Ketones, UA Negative Negative Blood, UA Negative Negative Bilirubin, UA Negative Negative Urobilinogen, UA Normal Normal Protein, UA Trace(A) Negative Nitrite, UA Negative Negative pH, UA 5.5 4.5 - 8.0 Specific [place], UA 1.020 1.005 - 1.030 Clarity, UA Clear Clear Color, UA Yellow Light Yellow, Yellow Urine Narrative Resulting Agency Comment [facility] Provider URINE ORDERABLES Final Re sult * Vitamin D 25 hydroxy (03/04/2025 11:29 AM EDT) [facility] Vit D, 25-Hydroxy 38.4 Serum Narrative Resulting Agency Comment [facility] Provider LAB BLOOD ORDERABLES Denisse l Result * (ABNORMAL) CBC and differential (03/04/2025 11:29 AM EDT) [facility] Hemoglobin 13.0(A) 13.5 - 17.5 g/dL Hematocrit [...] 7.7 10^3/mL Blood Narrative Resulting Agency Comment [facility] Provider LAB BLOOD ORDERABLES Denisse l Result * Urine Protein, Tot, Random (w/o Creat) (03/04/2025 11:29 AM EDT) Total Protein, Ur 27.0 Urine Narrative Resulting Agency Comment [facility] Result [facility] Provider URINE ORDERABLES Final Re sult * Hepatic Function Panel (03/04/2025 11:29 AM EDT) Bilirubin, Direct 0.2 Bilirubin, Indirect 0.7 Alkaline Phosphatase 155 ALT 39 AST 47 Total Bilirubin 0.9 Total Protein 7.5 Plasma Narrative Resulting Agency Comment [facility] Result [facility] Provider LAB BLOOD ORDERABLES Denisse l Result documented in this encounter Visit Diagnoses Not on filedocumented in this encounter Additional Health Concerns Infection Onset Date Last Indicated Resolved Time C. difficile 01/28/2025 01/28/2025 Assessment Noted Time PHQ-9 Depression Total Score: 2 12/11/19 25 9:00 AM EDT documented as of this encounter Care Teams Warehouse Shipping Supervisor Relationship Specialty Start Date End Date Enedina Mcguire NP [address] [place] [address] PCP - General Internal Medicine 10/05/24 Maureen Pantoja, RN Txp Post Coordinator Transplant Hepatology 10/28/24 Chris Orosco MD [address] [place] [address] [address] [place] [address] Consulting Physician Transplant Hepatology 02/26/25 documented as of this encounter
--- OUTSIDE RECORDS SUMMARY | 2025-03-20 07:23 | XMS_ITS | Encounter Summary ---
Author Organization [facility] Address [address] [place] [address] Care Team Providers Care Director Of Food And Nutrition Name Role Phone Enedina Mcguire NP Primary Care Provider + [phone] Maureen Pantoja RN Unavailable Unavail able Source [...] release of HIV test results or diagnoses. [id number] Reason for Visit * Reason Comments Results Encounter Details Date Type Department Care Team (Late st Contact Info) Description 01/23/2025 Telephone [facility] Liver Transplant at [address] [address] Maureen Pantoaj, RN Results Social History Tobacco Use Types Packs/Day Years Used Date Smoking Tobacco: Former Cigarettes Smokeless Tobacco: Current Alcohol Use Standard Drinks/Week Comments Yes 0 (1 standard drink = 0.6 oz pure alcohol) History of alcohol abuse, reports no use in 3 week- typically endorses use as 4 glasses of wine a days Utilities Answer Date Recorded In the past 12 months has [employer], gas, oil, or water company threatened to [...] that he is on his way to [facility] ED. Message routed to Inpatient Txp Team. * Maureen Pantoja RN - 01/27/2025 2:28 PM EDT Reviewed with Dr. Alonzo who recommends that patient go to ED. Local [place], but would prefer [facility] to do full infectious work-up in context of febrile neutropenia. Spoke with patient again. Patient very reluctant to go to ED. Advised [place] to go to local hospital, but that he needs further testing to rule out infection and get treatment if needed. Patient agreeable to going to local hospital. Patient requested [employer] message stating what to tell [facility] ED. Message sent. * Maureen Pantoja [...] 01/27/2025 10:25 AM EDT FK 11.3 Received FIND[employer] ROVER[employer] message from patient's that patient began feeling [...] Care Teams Director Of Food And Nutrition Relationship Specialty Start Date End Date Enedina Mcguire NP [address] [place] [address] PCP - General Internal Medicine 10/05/24 Maureen Pantoja, RN Txp Post Coordinator Transplant Hepatology 10/28/24 documented as of this encounter
--- OUTSIDE RECORDS SUMMARY | 2025-03-20 07:23 | XMS_ITS | Encounter Summary ---
Author Organization [facility] Address [address] [place] [address] Care Team Providers Care Svp Marketing Name Role Phone Enedina Mcguire NP Primary Care Provider + [phone] Maureen Pantoja RN Unavailable Unavail able Source [...] release of HIV test results or diagnoses. [id number] Reason for Visit * Reason Onset Date Comments Medication Refill 01/21/2025 Encounter Details Date Type Department Care Team (Late st Contact Info) Description 01/21/2025 Refill [facility] Liver Transplant at [address] [place] [address] Rose Montelongo MD [facility] [address] [place], [place] [id number] Social History Tobacco Use Types Packs/Day Years Used Date Smoking Tobacco: Former Cigarettes Smokeless Tobacco: Current Alcohol Use Standard Drinks/Week Comments Yes 0 (1 standard drink = 0.6 oz pure alcohol) History of alcohol abuse, reports no use in 3 week- typically endorses use as 4 glasses of wine a days Utilities Answer Date Recorded In the past 12 months has [employer], gas, oil, or water [employer] threatened to shut off services in [...] Date End Date Enedina Mcguire NP [address] [place] [address] PCP - General Internal Medicine 10/05/24 Maureen Pantoja, ЮЛИЯ Txp Post Coordinator Transplant Hepatology 10/28/24 documented as of this encounter
--- OUTSIDE RECORDS SUMMARY | 2025-03-20 07:24 | XMS_ITS | Encounter Summary ---
Author Organization [facility] Address [address] [place] [address] Care Team Providers Care Roll Up Machine Operator Name Role Phone Enedina Mcguire NP Primary Care Provider + [phone] Maureen Pantoja RN Unavailable Unavail able Source [...] release of HIV test results or diagnoses. [id number] Reason for Visit * Reason Comments Critical Lab Results Encounter Details Date Type Department Care Team (Late st Contact Info) Description 01/19/2025 Telephone [facility] Liver Transplant at [address] [place] [address] Gladis Chisholm MA Critical Lab Results [...] In the past 12 months has [employer], gas, oil, or water [employer] threatened to shut off services in your [...] Chisholm MA - 01/19/2025 9:17 AM EDT [facility] lab called to report: Urine culture results; [...] documented as of this encounter Care Teams Roll Up Machine Operator Relationship Specialty [place] [address] [place], [place] [id number] PCP - General Internal Medicine 10/05/24 Maureen Pantoja, RN Txp Post Coordinator Transplant Hepatology 10/28/24 documented as of this encounter
--- OUTSIDE RECORDS SUMMARY | 2025-03-20 07:24 | XMS_ITS | Encounter Summary ---
Author Organization [facility] Address [address] [place] [address] Care Team Providers Care Product Strategy Director Name Role Phone Enedina Mcguire NP Primary Care Provider [phone] Maureen Pantoja RN Unavailable Unavail able Source [...] release of HIV test results or diagnoses. [id number] Reason for Visit * Reason Comments Medication Refill Encounter Details Date Type Department Care Team (Late st Contact Info) Description 12/21/2024 Refill [facility] Liver Transplant at [address] [address] Lydia Sanchez MD [address] [place] [address] Liver/[place] [address] Encounter for therapeutic drug monitoring; S/P liver transplant ([facility]); Hypomagnesemia; Kidney transplant recipient; Hypertension, [...] for therapeutic drug monitoring S/P liver transplant ([facility]) Hypomagnesemia Disorders of magnesium metabolism [...] as of this encounter Care Teams Product Strategy Director Relationship Specialty Start Date End Date Enedina Mcguire NP [address] [place] [address] PCP - General Internal Medicine 10/05/24 Maureen Pantoja, RN Txp Post Coordinator Transplant Hepatology 10/28/24 documented as of this encounter
--- OUTSIDE RECORDS SUMMARY | 2025-03-20 07:24 | XMS_ITS | Encounter Summary ---
Author Organization [facility] Address [address] [place] [address] Care Team Providers Care Stitchdowns Toe Former Name Role Phone Enedina Mcguire NP Primary Care Provider + [phone] Maureen Pantoja RN Unavailable Unavail able Chris Orosco MD Unavailable [phone] Source Comments This information has been disclosed [...] release of HIV test results or diagnoses. [id number] Encounter Details Date Type Department Care Team (Late st Contact Info) Description 02/23/2025 Chart Note [facility] Liver Transplant at [address] [address] Marlene Ro MA 02/18 Labs entered from [facility] Social History Tobacco Use Types Packs/Day Years Used Date Smoking Tobacco: Former Cigarettes Smokeless Tobacco: Current Alcohol Use Standard Drinks/Week Comments Yes 0 (1 standard drink = 0.6 oz pure alcohol) History of alcohol abuse, reports no use in 3 week- typically endorses use as 4 glasses of wine a days Utilities Answer Date Recorded In the past 12 months has [employer], gas, oil, or water company threatened to [...] were not included. 02/18 Labs entered from [facility] Pet Pending documented in this [...] (ABNORMAL) Magnesium (02/18/2025 10:34 AM EDT) Pathologist [facility] Magnesium 1.4(A) 1.6 - 2.4 mg/dL Plasma Narrative Resulting Agency Comment [facility] Result [facility] LAB BLOOD ORDERABLES Denisse [...] Resulting Agency Comment [facility] Result [facility] LAB BLOOD ORDERABLES Denisse l Result * Tacrolimus level (02/18/2025 10:34 AM EDT) [facility] Tacrolimus Lvl 10.7 6 - 15 ng/mL Whole Blood Narrative Resulting Agency Comment [facility] Result [facility] LAB BLOOD ORDERABLES Denisse l Result * Creatinine, urine, random (02/18/2025 10:34 AM EDT) [facility] Creatinine, Urine 54 Urine Narrative Resulting Agency Comment [facility] Result [facility] URINE ORDERABLES Final Re sult * Urinalysis w/Rfl to Microscopic (02/18/2025 10:34 AM EDT) Pathologist [facility] Glucose, UA Negative Negative Ketones, UA Negative Negative Blood, UA Negative Negative Bilirubin, UA Negative Negative Urobilinogen, UA Normal Normal Protein, UA Negative Negative pH, UA 5.5 4.5 - 8.0 Specific [place], UA 1.015 1.005 - 1.030 Clarity, UA Clear Clear Color, UA Yellow Light Yellow, Yellow Urine Narrative Resulting Agency Comment [facility] Result [facility] Historical Provider URINE ORDERABLES Final [...] 4.9 10^3/mL Blood Narrative Resulting Agency Comment [facility] Result [facility] Historical Provider LAB BLOOD ORDERABLES Denisse l Result * Urine Protein, Tot, Random (w/o Creat) (02/18/2025 10:34 AM EDT) Total Protein, Ur 22.0 Urine Narrative Resulting Agency Comment [facility] Result [facility] Historical Provider URINE ORDERABLES Final Re sult * Hepatic Function Panel (02/18/2025 10:34 AM EDT) Bilirubin, Direct 0.0 Bilirubin, Indirect 0.5 Alkaline Phosphatase 85 ALT 19 AST 24 Total Bilirubin 0.5 Total Protein 7.1 Plasma Narrative Resulting Agency Comment [facility] us Historical Provider LAB BLOOD ORDERABLES Denisse l Result documented in this encounter Visit Diagnoses Not on filedocumented in this encounter Additional Health Concerns Infection Onset Date Last Indicated Resolved Time C. difficile 01/28/2025 01/28/2025 Assessment Noted Time PHQ-9 Depression Total Score: 2 12/11/19 25 9:00 AM EDT documented as of this encounter Care Teams Stitchdowns Toe Former Relationship Specialty Start Date End Date Enedina Mcguire NP [address] [place] [address] PCP - General Internal Medicine 10/05/24 Maureen Pantoja RN Txp Post Coordinator Transplant Hepatology 10/28/24 Chris Orosco MD [address] [place] [address] [place] [address] Consulting Physician Transplant Hepatology 02/26/25 documented as of this encounter
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
--- OUTSIDE RECORDS SUMMARY | 2025-03-20 07:24 | XMS_ITS | Clinical Summary ---
Author Organization [facility] Address [address] [place] [address] Care Team Providers Care Medicaid Analyst Name Role Phone Enedina Mcguire NP Primary Care Provider + [phone] Maureen Pantoja RN Unavailable Unavail able Chris Orosco MD Unavailable [phone] Source Comments This information has been disclosed [...] therelease of HIV test results or diagnoses. [id number] Allergies Active Allergy Reactions Criticality Noted [...] Active ergocalciferol (ERGOCALCIFEROL) 1,250 mcg (50,000 unit) capsuleIndications: Encounter for therapeutic drug monitoring,S/P liver transplant ([facility]),Hypomagne semia,Kidney transplant recipient,Hypertens ion, unspecified type,Gastroesophage al reflux disease, unspecified whether esophagitis present Take [...] 1 025 Active gabapentin (NEURONTIN) 300 MG capsuleIndications: Neuropathic Pain,alcoholism Take 1 capsule (300 mg total) by mouth 3 times a day. Work on decreasing to one capsule daily. Indications: Neuropathic Pain, alcoholism 270 capsule 1 025 Active famotidine (PEPCID) 20 MG tabletIndications:E ncounter for therapeutic drug monitoring,S/P liver transplant ([facility]),Hypomagne semia,Kidney transplant recipient,Hypertens ion, unspecified type,Gastroesophage al reflux disease, unspecified whether esophagitis present Take 1 tablet by mouth twice daily 60 tablet 5 025 Active testosterone cypionate 200 mg/mL Kit Inject into the muscle. 021 Active mycophenolate (CELLCEPT) 250 mg capsuleIndications: Encounter for therapeutic drug monitoring,S/P liver transplant ([facility]),Hypomagne semia,Kidney transplant recipient,Hypertens ion, unspecified type,Gastroesophage al reflux disease, unspecified whether esophagitis present Take 1 capsule (250 mg total) by mouth 2 times a day. 60 capsule 5 025 Active predniSONE (DELTASONE) 5 MG tablet Take 1 tablet (5 mg total) by mouth daily. 025 Active NIFEdipine (PROCARDIA-XL) 30 MG (OSM) 24 hr tabletIndications:E ncounter for therapeutic drug monitoring,S/P liver transplant ([facility]),Hypomagne semia,Kidney transplant recipient,Hypertens ion, unspecified type,Gastroesophage al reflux disease, unspecified whether esophagitis present Take 1 tablet by mouth once daily 30 tablet Active tacrolimus (PROGRAF) 1 MG capsuleIndications: Prevention of Kidney Transplant Rejection,Preventio n of Liver Transplant Rejection Take 5 capsules (5 mg total) by mouth every morning AND 6 capsules (6 mg total) every evening. Indications: Prevention of Kidney Transplant Rejection, Prevention of Liver Transplant Rejection. 330 capsule 5 025 Active famotidine (PEPCID) 20 MG tabletIndications:E ncounter for therapeutic drug monitoring,S/P liver transplant ([facility]),Hypomagne semia,Kidney transplant recipient,Hypertens ion, unspecified type,Gastroesophage al reflux disease, unspecified whether esophagitis present Take 1 tablet (20 mg total) by mouth 2 times a day. 60 tablet 2 025 2024 Discontinued mycophenolate (CELLCEPT) 250 mg capsuleIndications: Encounter for therapeutic drug monitoring,S/P liver transplant ([facility]),Hypomagne semia,Kidney transplant recipient,Hypertens ion, unspecified type,Gastroesophage al reflux disease, unspecified whether esophagitis present Take 2 capsules (500 mg total) by mouth 2 times a day. 120 capsule 5 025 2024 Discontinued(R efill / Reorder) NIFEdipine (PROCARDIA-XL) 30 MG (OSM) 24 hr tabletIndications:E ncounter for therapeutic drug monitoring,S/P liver transplant ([facility]),Hypomagne semia,Kidney transplant recipient,Hypertens ion, unspecified type,Gastroesophage al reflux disease, unspecified whether esophagitis present Take 1 tablet by mouth once daily 30 tablet 2 025 2024 Discontinued tacrolimus (PROGRAF) 1 MG capsuleIndications: Prevention of Kidney Transplant Rejection,Preventio n of Liver Transplant Rejection Take 5 capsules (5 mg total) by mouth every morning AND 6 capsules (6 mg total) every evening. Use as directed. Indications: Prevention of Kidney Transplant Rejection, Prevention of Liver Transplant Rejection. 330 capsule 5 025 2024 Discontinued(R efill / Reorder) acetaminophen (TYLENOL) 325 MG tablet Take 3 tablets (975 mg total) by mouth every 8 hours as needed 100 tablet 025 2024 predniSONE (DELTASONE) 5 MG tablet Take 2 tablets (10 mg total) by mouth daily. 60 tablet 025 2024 Discontinued(R efill / Reorder) organ preservation soln no.3 125 mEq/L IrSl 1,000 mL with heparin (porcine) 5,000 unit/mL Soln 5,000 Units Irrigate with 5,000 Units as directed once. 2024 Discontinued tacrolimus (PROGRAF) 1 MG capsuleIndications: Prevention of Kidney Transplant Rejection,Preventio n of Liver Transplant Rejection Take 6 capsules (6 mg total) by mouth 2 times a day. Indications: Prevention of Kidney Transplant Rejection, Prevention of Liver Transplant Rejection 360 capsule 5 025 2024 Discontinued(R efill / Reorder) Active [...] with SBP, s/p CTX x5d; will cont risk control specialist ppx with Cipro 500mg daily - HE: [...] Date Type Department Care Team Description 03/19/2025 Telephone [facility] Transplant at [address] [address] Maureen Pantoja, RN Results 03/16/2025 Telephone [facility] at [address] [address] Lizeth Walden, RN 03/16/2025 Chart Note [facility] Transplant at [address] [address] Marlene Ro MA Magnesium Level from 03/1303/16/2025 Telephone [facility] Transplant at [address] [address] Mitzy Schneider MA 03/13/2025 Telephone [facility] Transplant at [address] [address] Mitzy Schneider MA Critical Lab Results 03/12/2025 Refill [facility] Transplant at [address] [address] Lydia Sanchez MD Encounter for therapeutic drug monitoring; S/P liver transplant ([facility] Hypomagnesemia; Kidney transplant recipient; Hypertension, unspecified type; Gastroesophageal reflux disease, unspecified whether esophagitis present 03/10/2025 Telephone [facility] Trans[facility] at [address] [address] Lizeth Walden, ЮЛИЯ 03/10/2025 Telephone [facility] Liver Transplant at [address] [address] Maureen Pantoja, ЮЛИЯ Results; Medication Dose Change 03/10/2025 Chart Note [facility] Transplant at [address] [place] [phone] Marlene Ro MA 03/10 Labs entered from [facility] 03/10/2025 Telephone [facility] Transplant at [address] [phone] Marlene Ro MA 03/10/2025 Telephone [facility] Transplant at [address] [phone] Marisela Martinez MA Critical Lab Results 03/06/2025 Telephone [facility] Transplant at [address] [phone] Maureen Pantoja, RN Results 03/04/2025 Chart Note [facility] Transplant at [address] [phone] Marlene Ro MA 03/04 Labs entered from [facility] 03/02/2025 Refill [facility] [address] [place] [phone] Feliciano Gomez, EZEKIEL 03/02/2025 Telephone [facility] Transplant at [address] [phone] Marlene Ro MA 02/26/2025 Telephone [facility] Transplant at [address] [phone] Maureen Pantoja, ЮЛИЯ Results; Medication Dose Change 02/26/2025 Chart Note [facility] Transplant at [address] [phone] Marlene Ro MA 02/24 Labs entered from [facility] 02/25/2025 10:50 AM EDT Office Visit [facility] at [address] [place] [phone] Bruno Gonzalez MD Kidney transplant recipient (Primary Dx); Neck pain with history of cervical spinal surgery; S/P liver transplant ([facility]) 02/25/2025 Refill [facility] Transplant at [address] [place] [phone] Lydia Sanchez MD Encounter for therapeutic drug monitoring; S/P liver transplant ([facility]); Hypomagnesemia; Kidney transplant recipient; Hypertension, unspecified type; Gastroesophageal reflux disease, unspecified whether esophagitis present 02/23/2025 Chart Note [facility] Transplant at [address] [phone] Marlene Ro MA 02/18 Labs entered from [facility] 02/23/2025 Telephone [facility] Transplant at [address] [place] [phone] Marlene Ro MA 02/17/2025 Telephone [facility] Transplant at [address] [place] [phone] Marlene Ro MA 02/13/2025 Telephone [facility] Transplant at [address] [place] [phone] Marisela Martinez MA Results 02/12/2025 10:50 AM EDT Office Visit [facility] at [address] [place] [phone] Chris Orosco MD Liver transplant recipient ([facility]) (Primary Dx); History of systemic steroid therapy; Kidney transplant recipient; Immunosuppressive management encounter following liver transplant (CMS-HCC); Encounter for monitoring tacrolimus therapy; Vitamin D deficiency; Encounter for therapeutic drug monitoring; S/P liver transplant ([facility]); Hypomagnesemia; Hypertension, unspecified type; Gastroesophageal reflux disease, unspecified whether esophagitis present; Alcohol use disorder; Immunosuppression ([facility]); Viral disease exposure 02/12/2025 Social Work [facility] Transplant at [address] [place] [phone] Kaylin Willard MSW 02/12/2025 Telephone [facility] Transplant at [address] [phone] Maureen Pantoja, ЮЛИЯ Results 02/10/2025 Chart Note [facility] Transplant at [address] [phone] Marlene Ro MA 02/10 Labs entered from [facility] 02/09/2025 Chart Note [facility] Transplant at [address] [phone] Marisela Martinez MA 02/09/2025 Telephone [facility] Transplant at [address] [phone] Marisela Martinez MA 02/08/2025 Refill [facility] Transplant at [address] [place] [phone] Harvey Domínguez III, MD 02/04/2025 Telephone [facility] Transplant at [address] [phone] Marlene Ro MA 02/03/2025 Telephone [facility] Transplant at [address] [place] [phone] Mitzy Schneider MA Results 02/03/2025 Telephone [facility] Transplant at [address] [phone] Marlene Ro MA 02/03/2025 Chart Note [facility] Transplant at [address] [phone] Marlene Ro MA 02/03 Labs entered from [facility] 01/27/2025 6:28 PM EDT - 01/30/2025 2:25 PM EDT Hospital Encounter [address] [place] [phone] Sunny Wei MD Haugen, Christine, MD Diarrhea of presumed infectious origin (Primary Dx); Immunosuppression (CMS-HCC) Discharge Disposition: Home or Self Care WITHOUT Home Care Services 01/27/2025 Travel 01/27/2025 Telephone [facility] Transplant at [address] [phone] Marlene Ro MA 01/26/2025 Telephone [facility] Transplant at [address] [place] [address] Maureen Pantoja, lithographic plate maker Management 01/23/2025 Telephone [facility] at [address] [place] [address] Maureen Pantoja, RN Results 01/21/2025 Refill [facility] Transplant at [address] [place] [address] Rose Montelongo MD 01/21/2025 Refill [facility] Transplant at [address] [place] [phone] Lydia Sanchez MD Encounter for therapeutic drug monitoring; S/P liver transplant ([facility]); Hypomagnesemia; Kidney transplant recipient; Hypertension, unspecified type; Gastroesophageal reflux disease, unspecified whether esophagitis present 01/21/2025 Refill [facility]plant at [address] [place] [address] Harvey Domínguez III, MD Encounter for therapeutic drug monitoring; S/P liver transplant ([facility]); Hypomagnesemia; Kidney transplant recipient; Hypertension, unspecified type; Gastroesophageal reflux disease, unspecified whether esophagitis present 01/20/2025 Chart Note [facility]plant at [address] [address] Marlene Ro MA 01/20 Labs entered from [facility] 01/19/2025 Telephone [facility] Transplant at [address] [phone] Gladis Chisholm MA Critical Lab Results 01/17/2025 Refill [facility] Transplant at [address] [place] [address] Harvey Domínguez III, MD Encounter for therapeutic drug monitoring; S/P liver transplant ([facility]); Hypomagnesemia; Kidney transplant recipient; Hypertension, unspecified type; Gastroesophageal reflux disease, unspecified whether esophagitis present 01/16/2025 Telephone [facility] at [address] [place] [address] Maureen Pantoja, RN Results 01/15/2025 Chart Note [facility] at [address] [place] [address] Marlene Ro MA 01/14 Labs entered from [facility] 01/15/2025 Telephone [facility] Transplant at [address] [place] [phone] Marlene Ro MA 01/15/2025 Telephone [facility] [address] [facility] [address] [facility] [place] [phone] Kaylin Willard MSW 01/14/2025 Telephone [facility] Transplant at [address] [place] [phone] Marlene Ro MA 01/09/2025 Chart Note [facility] Transplant at [address] [place] [phone] Marlene Ro MA 01/09 Labs entered from [facility] 01/09/2025 Telephone [facility] Transplant at [address] [place] [phone] Marisela Martinez MA Results 01/08/2025 Telephone [facility] Transplant at [address] [place] [phone] Maureen Pantoja, RN Results 01/06/2025 9:30 AM EDT Office Visit [facility] Transplant at [address] [place] [phone] Leisa Juarez MD Kidney transplant recipient (Primary Dx); Hypomagnesemia; Hyperphosphatemia; Immunosuppression ([facility]); Viral disease exposure; Hypertension, unspecified type 01/06/2025 8:20 AM EDT Office Visit [facility]plant at [address] [place] [phone] Cosmo Pacheco MD Paci, Philippe, MD S/P liver transplant (CMS-HCC) (Primary Dx); Immunosuppression ([facility]); Kidney transplant recipient; Alcohol use disorder 01/06/2025 Social Work [facility]plant at [address] [place] [phone] Kaylin Willard MSW 01/05/2025 Chart Note [facility] Transplant at [address] [place] [phone] Marlene Ro MA 01/05 Labs entered from [facility] 01/05/2025 Telephone [facility] Transplant at [address] [place] [phone] Marisela Martinez MA Critical Lab Results 01/05/2025 Telephone [facility] Transplant at [address] [place] [address] Maureen Pantoja, RN Results 12/31/2024 Chart Note [facility] Transplant at [address] [place] [phone] Marlene Ro MA 12/31 Labs entered from [facility] 12/29/2024 Telephone [facility] Transplant at [address] [place] [address] Maureen Pantoja, RN Results 12/23/2024 Chart Note [facility] Transplant at [address] [place] [address] Maureen Pantoja, inventory control coordinator results from 12/23/24 entered from [facility]. 12/22/2024 Telephone [facility] Transplant at [address] [place] [address] Maureen Pantoja, RN Results; Medication Dose Change 12/21/2024 Refill [facility] Transplant at [address] [place] [phone] Lydia Sanchez MD Encounter for therapeutic drug monitoring; S/P liver transplant ([facility]); Hypomagnesemia; Kidney transplant recipient; Hypertension, unspecified type; Gastroesophageal reflux disease, unspecified whether esophagitis present 12/18/2024 2:00 PM EDT Office Visit [facility] Psychiatry Transplant at [address] [place] [address] Lizeth Warren PsyD Alcohol use disorder (Primary Dx); PTSD (post-traumatic stress disorder) 12/18/2024 Refill [facility] Transplant at [facility] [address] [facility] [address] [place] [phone] Maureen Pantoja, ЮЛИЯ Encounter for therapeutic drug monitoring; S/P liver transplant ([facility]); Hypomagnesemia; Kidney transplant recipient; Hypertension, unspecified type; Gastroesophageal reflux disease, unspecified whether esophagitis present from Last 3 Months Social History Tobacco [...] as 4 glasses of wine a days [employer] Answer Date Recorded In the past 12 months has [employer], [employer], oil, or water [employer] threatened to shut off services in your [...] Comments MAGNESIUM Routine 03/13/2025 2:32 PM EDT PHATIDYLETHANOL (PETH) Routine 9:29 AM EDT TACROLIMUS LEVEL Routine 03/10/2025 9:29 AM EDT CYTOMEGALOVIRUS DNA, [...] AND DIFFERENTIAL Routine 03/10/2025 9:29 AM EDT PHATIDYLETHANOL (PETH) Routine 11:29 AM EDT TACROLIMUS LEVEL Routine [...] Routine 9:30 PM EDT UPPER RESPIRATORY VIRAL/BACTERIAL PANEL-COMPUTER ANALYST SUPERVISOR ONLY Routine 01/27/2025 9:30 PM EDT LACTIC [...] S Routine 01/27/2025 8:20 PM EDT FUNGITELL ORHM-M-RPEQTG Routine 01/28/20 25 8:20 PM EDT KATIE SCHAFER VIRUS DNA, [...] AND DIFFERENTIAL Routine 12/23/2024 9:53 AM EDT HIV-1 RNA, QUANTITATIVE, PCR Routine 11/25/2024 8:42 AM EDT S/P liver transplant ([facility]) Immunosuppression ([facility]) Viral disease exposure HEPATITIS C ANTIBODY STAT 10/25/2024 10:17 PM EDT TSH Routine 10/07/2024 6:37 PM EDT from Last 3 Months or Most Recently Relevant to Health Maintenance Results * (ABNORMAL) Magnesium (03/13/2025 2:32 PM EDT) Only the most recent of16 resultswithin the time period is included. Magnesium 1.3(A) 1.6 - 2.4 mg/dL Plasma Result [facility] Provider MD LAB BLOOD ORDERABLES Denisse l Result * Phatidylethanol (PEth) (03/10/2025 9:29 AM EDT) Only the most recent of6 resultswithin the time period is included. Phosphatidylethanol (PEth) Positive 413 Whole Blood Result [facility] Provider MD LAB BLOOD ORDERABLES Denisse l Result * Urine Protein, Tot, Random (w/o Creat) (03/10/2025 9:29 AM EDT) Only the most recent of11 resultswithin the time period is included. Total Protein, Ur 21.0 Urine Narrative Resulting Agency Comment [facility] Lab Result [facility] Provider MD URINE ORDERABLES Final Re sult * Cytomegalovirus DNA, Quant, RT PCR (03/10/2025 9:29 AM EDT) Only the most recent of4 resultswithin the time period is included. CMV Quant DNA PCR (Plasma) Negative Plasma Result [facility] MD LAB BLOOD ORDERABLES Denisse l Result * Hepatic Function Panel (03/10/2025 9:29 AM EDT) Only the most recent of16 resultswithin the time period is included. Bilirubin, Direct 0.2 Bilirubin, Indirect 0.5 Alkaline Phosphatase 102 ALT 28 AST 26 Total Bilirubin 0.7 Total Protein 6.7 Plasma Narrative Resulting Agency Comment [facility] Lab Result [facility] LAB BLOOD ORDERABLES Denisse l Result * Tacrolimus level (03/10/2025 9:29 AM EDT) Only the most recent of15 resultswithin the time period is included. Tacrolimus Lvl 14.5 6 - 15 ng/mL Whole Blood Result [facility] LAB BLOOD ORDERABLES Denisse l Result * Creatinine, urine, random (03/10/2025 9:29 AM EDT) Only the most recent of11 resultswithin the time period is included. Creatinine, Urine 94 Urine Narrative Resulting Agency Comment [facility] Result [facility] URINE ORDERABLES Final Re sult * Urinalysis w/Rfl to Microscopic (03/10/2025 9:29 AM EDT) Only the most recent of11 resultswithin the time period is included. Glucose, UA Negative Negative Ketones, UA Negative Negative Blood, UA Negative Negative Bilirubin, UA Negative Negative Urobilinogen, UA Normal Normal Protein, UA Negative Negative Nitrite, UA Negative Negative pH, UA 5.5 4.5 - 8.0 Specific [place], UA 1.015 1.005 - 1.030 Clarity, UA Clear Clear Color, UA Yellow Light Yellow, Yellow Urine Narrative Resulting Agency Comment [facility] Lab us Historical Provider MD URINE ORDERABLES Final Re sult * (ABNORMAL) CBC and differential (03/10/2025 9:29 AM EDT) Only the most recent of13 resultswithin the time period is included. Pathologist [facility] Hemoglobin 13.5 13.5 - 17.5 g/dL Hematocrit [...] 5.6 10^3/mL Blood Narrative Resulting Agency Comment [facility] Lab Historical Provider MD LAB BLOOD ORDERABLES Denisse l Result * (ABNORMAL) Renal Function Panel w/o EGFR (03/10/2025 9:29 AM EDT) Only the most recent of12 resultswithin the time period is included. Pathologist [facility] Glucose 111 BUN 13 CO2 28(A) 13 - 22 mmol/L Creatinine 1.30 Potassium 3.9 Sodium 138 Chloride 100 Phosphorus 5.0(A) 2.5 - 4.9 mg/dL Calcium 9.2 EGFR 61 mg/dL Albumin 4.5 3.5 - 5.0 g/dL Blood Narrative Resulting Agency Comment [facility] Lab Historical Provider MD LAB BLOOD ORDERABLES Denisse l Result * Vitamin D 25 hydroxy (03/04/2025 11:29 AM EDT) Pathologist [facility] Vit D, 25-Hydroxy 38.4 Serum Narrative Resulting Agency Comment [facility] Provider MD LAB BLOOD ORDERABLES Denisse l Result * Urine culture (03/04/2025 11:29 AM EDT) Only the most recent of4 resultswithin the time period is included. [facility] Urine Culture, Comprehensive no growth after 48 hours URINE SPECIMEN / Unknown Result [facility] Provider MD MICROBIOLOGY - GENERAL OR DERABLES Final Result * BK Virus Quantitative by PCR, Blood (02/10/2025 9:33 AM EDT) Only the most recent of4 resultswithin the time period is included. [facility] BK Virus Quant PCR PL Negative Plasma Result [facility] MD LAB BLOOD ORDERABLES Denisse l Result * Clostridium difficile DNA Amplification (02/03/2025 11:04 AM EDT) Only the most recent of2 resultswithin the time period is included. [facility] Clost. Diff DNA Amp. Positive Norovirus Detected FECES / Unknown Result [facility] Provider BODY FLUIDS AND STOOLS OR DERABLES Edited Result - Final * (ABNORMAL) Differential (01/30/2025 7:41 AM EDT) Only the most recent of2 resultswithin the time period is included. Pathologist [facility] Neutrophils Relative 39.1(L) 40.0 - 80.0 % 01/30/2025 8:09 AM EDT [facility] Lymphocytes Relative 43.8 15.0 - 45.0 % 01/30/2025 8:[address] [facility] Monocytes Relative 14.2(H) 0.0 - 12.0 % 01/30/2025 8:[address] [facility] Eosinophils Relative 2.2 0.0 - 8.0 % 01/30/2025 8:[address] [facility] Basophils Relative 0.7 0.0 - 1.0 % 01/30/2025 8:[address] [facility] nRBC 0 0 - 0 /100 WBC 01/30/2025 8:[address] [facility] Neutrophils Absolute 782(L) 1,520 - 8,640 /uL 01/30/2025 8:[address] [facility] Lymphocytes Absolute 876 570 - 4,860 /uL 01/30/2025 8:[address] [facility] Monocytes Absolute 284 0 - 1,296 /uL 01/30/2025 8:[address] [facility] Eosinophils Absolute 44 0 - 864 /uL 01/30/2025 8:[address] [facility] Basophils Absolute 14 0 - 108 /uL 01/30/2025 8:[address] [facility] Whole Blood 01/30/2025 7:41 AM EDT 01/30/2025 8:01 AM EDT Feliciano Gomez [facility] BLOOD ORDERABLES Final Resu lt Performing Organization Address City/State/[facility] Co de Phone Number [facility] [address] * (ABNORMAL) Renal Function Panel w/EGFR (01/30/2025 5:51 AM EDT) Only the most recent of3 resultswithin the time period is included. Sodium 139 133 - 146 mmol/L 01/30/2025 7:[address] [facility] Potassium 3.5 3.5 - 5.3 mmol/L 01/30/2025 7:[address] [facility] Chloride 105 98 - 110 mmol/L 01/30/2025 7:[address] [facility] CO2 26 21 - 33 mmol/L 01/30/2025 7:[address] [facility] Anion Gap 8 3 - 16 mmol/L 01/30/2025 7:[address] [facility] BUN 29(H) 7 - 25 mg/dL 01/30/2025 7:[address] [facility] Creatinine 1.14 0.60 - 1.30 mg/dL 01/30/2025 7:[address] [facility] Glucose 114(H) 70 - 100 mg/dL 01/30/2025 7:[address] [facility] Calcium 8.7 8.6 - 10.3 mg/dL 01/30/2025 7:[address] [facility] Phosphorus 5.1(H) 2.1 - 4.7 mg/dL 01/30/2025 7:[address] [facility] Albumin 4.1 3.5 - 5.7 g/dL 01/30/2025 7:[address] [facility] Osmolality, Calculated 295 278 - 305 mOsm/kg 01/30/2025 7:[address] [facility] EGFR 83 01/30/2025 7:[address] [facility] Comment:As of 2021, the estimated [...] Hill MD LAB BLOOD ORDERABLES Final Result [facility] [address] [place] [address], [facility] * (ABNORMAL) CBC (01/30/2025 5:51 AM EDT) Only the most recent of4 resultswithin the time period is included. WBC 2.1(L) 3.8 - 10.8 10E3/uL 01/30/2025 6:[address] [facility] RBC 3.41(L) 4.20 - 5.80 10E6/uL 01/30/2025 6:[address] [facility] Hemoglobin 11.2(L) 13.2 - 17.1 g/dL 01/30/2025 6:[address] [facility] Hematocrit 31.9(L) 38.5 - 50.0 % 01/30/2025 6:[address] [facility] MCV 93.7 80.0 - 100.0 fL 01/30/2025 6:[address] [facility] MCH 32.9 27.0 - 33.0 pg 01/30/2025 6:[address] [facility] MCHC 35.1 32.0 - 36.0 g/dL 01/30/2025 6:[address] [facility] RDW 14.8 11.0 - 15.0 % 01/30/2025 6:[address] [facility] Platelets 95(L) 140 - 400 10E3/uL 01/30/2025 6:[address] [facility] MPV 6.4(L) 7.5 - 11.5 fL 01/30/2025 6:[address] [facility] Whole Blood 01/30/2025 5:51 AM EDT 01/30/2025 6:33 AM EDT Carlton Hill MD LAB BLOOD ORDERABLES Final Result Performing Organization Address City/State/[facility] Co de Phone Number [facility] [address] [place] [id number], [facility] * CT Neck With IV [...] cavity, parapharyngeal space, and retropharyngeal space. Normal curb supervisor space, infratemporal fossa, and buccal space. Infrahyoid [...] CT images of the neck were obtained [id number] mL of IOHEXOL 350 MG IODINE/ML INTRAVENOUS SOLUTION administeredintravenously . Sagittal and coronal 2D multiplanar reconstructions wereperformed at the scanner. COMPARISON: None available FINDINGS: Adequate diagnostic quality. Nasopharynx: Symmetric with no mass. Normal torus tubarius, fossa ofRosenmuller, and adenoid tonsillar tissue. Suprahyoid neck: Normal oropharynx, oral cavity, parapharyngeal space, andretropharyngeal space. Normal curb supervisor space, infratemporal fossa, andbuccal space. Infrahyoid neck: [...] 01/29/2025 2:41 PM EDT us Feliciano Gomez [facility] IMG CT ORDERABLES Final Result * Sed Rate (01/29/2025 5:55 AM EDT) Sed Rate 2 0 - 15 mm/hr 01/29/2025 7:[address] [facility] Whole Blood 01/29/2025 5:55 AM EDT 01/29/2025 6:41 AM EDT us Feliciano Gomez [facility] BLOOD ORDERABLES Final Resu lt [facility] [address] * C-Reactive Protein (01/29/2025 5:55 AM EDT) CRP 4.1 1.0 - 10.0 mg/L 01/29/2025 7:[address] [facility] Plasma 01/29/2025 5:55 AM EDT 01/29/2025 6:41 AM EDT us Feliciano Gomez [facility] BLOOD ORDERABLES Final Resu lt Performing Organization Address City/State/[facility] Co de Phone Number [facility] [address] * Giardia Cryptosporidium Antigens (Feces) (01/28/2025 9:27 PM EDT) Pathologist [facility] Cryptosporidium Ag Negative Negative 2024 8:[address] [facility] Giardia Ag Negative Negative 01/29/2025 8:[address] [facility] Comment: Detection of Giardia and Cryptosporidium antigen is more sensitive and specific than microscopy. Because antigens are shed continuously, repeat testing is rarely warranted. Feces 01/28/2025 9:27 PM EDT 01/28/2025 10:07 PM EDT Comment:F Ruby Chiang MD MICROBIOLOGY - GENERAL ORDERAB LES Final Result Performing Organization Address City/[facility]/ZIP Co de Phone Number [facility] [address] * Ova and Parasite Comprehensive w/Giardia (Feces) (01/28/2025 9:27 PM EDT) Pathologist [facility] O & P Method: Concentration and Trichrome Stain [facility] Results No Amoeba, Ova, Or Parasites Seen. -- O and P examination of additional specimens is recommended only for symptomatic patients, immunosuppressed patients or those with an appropriate travel history. [facility] Feces FECES / Unknown 01/28/2025 9 :27 PM EDT 01/28/2025 10:07 PM EDT Comment:F Ruby Chiang MD MICROBIOLOGY - GENERAL ORDERAB LES Final Result [facility] [address] * Clostridium Difficile Toxin A/B Antigen (01/28/2025 1:21 PM EDT) Pathologist [facility] CDIFF Tox AGN Negative Negative 01/28/2025 10:[address] [facility] Comment:C. difficile nucleic acid testing is positive but toxin antigen testing is negative. Please note that antigen testing is less sensitive than nucleic acid testing and cannot distinguish disease from colonization. Interpret results with caution and in the context of the clinical presentation of the patient. Stool, Liquid 01/28/2025 1:2 1 PM EDT 01/28/2025 9:59 PM EDT Comment:F us Feliciano Gomez CNP BODY FLUIDS AND STOOLS ORDERABL ES Final Result [facility] [address] [place] [address], [facility] * Phosphatidylethanol Confirmation, B (01/28/2025 7:14 AM EDT) Only the most recent of2 resultswithin the time period is included. PETH 16:0/18.1 (POPETH) 394 Cutoff: 10 ng/mL 01/30/2025 9:58 AM EDT [facility] Comment: Phosphatidylethanol (PEth) homologues result interpretation [...] Cutoff: 10 ng/mL 01/30/2025 9:58 AM EDT [facility] Comment: PEth 16:0/18:2 (PLPEth) Reference ranges are not well established PEth Interpretation Positive. 01/30 9:58 AM EDT [facility] Comment: ADDITIONAL INFORMATION This report is intended for use in clinical monitoring and management of patients. It is not intended for use in employment-related testing. This test was developed and its performance characteristics determined by [facility] in a manner consistent with CLIA requirements. This test has not been cleared or approved by the U.S. Food and Drug Administration. Test Performed by: [facility] - [facility] [address] [place] [address] Tar Worker: Kathy Ortiz Ph.D.; CLIA# [id number] Whole Blood 01/28/2025 7:14 AM EDT 01/30/2025 9:58 AM EDT Carlton Hill MD LAB BLOOD ORDERABLES Final Result [facility] [address] [place] [address], [facility] * CT Head WO contrast [...] Detected Not Detected 01/28/2025 3:[address] [facility] Salmonella species Not Detected Not Detected 01/28/2025 3:[address] [facility] Shigella species Not Detected Not Detected 01/28/2025 3:[address] [facility] Vibrio Group (Vibrio cholerae, Vibrio parahaemolyticus) Not Detected Not Detected 01/28/2025 3:[address] [facility] Yersinia enterocolitica Not Detected Not Detected 01/28/2025 3:[address] [facility] Shiga toxin 1 Not Detected Not Detected 01/28/2025 3:[address] [facility] Shiga toxin 2 Not Detected Not Detected 01/28/2025 3:[address] [facility] Norovirus Not Detected Not Detected 01/28/2025 3:[address] [facility] Rotavirus Not Detected Not Detected 01/28/2025 3:[address] [facility] Comment: The Enteric Pathogen Panel [...] AND STOOLS ORDERABLE S Final Result [facility] [address] * Respiratory viral panel (01/27/2025 9:30 PM EDT) Adenovirus Not Detected Not Detected 01/28/2025 12:[address] [facility] Coronavirus (229E,HKU1,NL63,OC 43) Not Detected Not Detected 01/28/2025 12:[address] [facility] SARS-CoV-2 Not Detected Not Detected 01/28/2025 12:[address] [facility] Human Metapneumovirus Not Detected Not Detected 01/28/2025 12:[address] [facility] Human Rhinovirus/Enterov irus Not Detected Not Detected 01/28/2025 12:[address] [facility] Influenza A Not Detected Not Detected 01/28/2025 12:[address] [facility] Influenza A H1 Not Detected Not Detected 01/28/2025 12:[address] [facility] Influenza A/H1-2009 Not Detected Not Detected 01/28/2025 12:[address] [facility] Influenza A H3 Not Detected Not Detected 01/28/2025 12:[address] [facility] Influenza B Not Detected Not Detected 01/28/2025 12:[address] [facility] Parainfluenza 1 Not Detected Not Detected 01/28/2025 12:[address] [facility] Parainfluenza 2 Not Detected Not Detected 01/28/2025 12:[address] [facility] Parainfluenza 3 Not Detected Not Detected 01/28/2025 12:[address] [facility] Parainfluenza 4 Not Detected Not Detected 01/28/2025 12:[address] [facility] Resp. Syncycial Virus A Not Detected Not Detected 01/28/2025 12:[address] [facility] Resp. Syncycial Virus B Not Detected Not Detected 01/28/2025 12:[address] [facility] Chlamydia pneumoniae Not Detected Not Detected 01/28/2025 12:[address] [facility] Mycoplasma pneumoniae Not Detected Not Detected 01/28/2025 12:[address] [facility] Comment: The Respiratory Viral-Bacterial Panel [...] Test results have been sent to the [facility] in accordance with state requirements. For a fact sheet for healthcare providers, see https://www.fda.gov/media/816358/download. For a fact sheet for patients, see https://www.fda.gov/media/144443/download. Nasopharyngeal Swab NASOPHARYNGEAL STRUCTURE / Unknown 01/27/2025 9:30 PM EDT 01/27/2025 10:20 PM EDT us Shelby Blanco MD BODY FLUIDS AND STOOLS ORDERABLE S Final Result Performing Organization Address [facility]/ZIP Co de Phone Number [facility] [address] * Lactic acid, venous, whole blood (01/27/2025 9:30 PM EDT) Pathologist [facility] Lactate, Shakeel 1.4 0.5 - 1.6 mmol/L 01/27/2025 9:[address] [facility] Blood, Venous 01/27/2025 9:3 0 PM EDT 01/27/2025 9:39 PM EDT us Pamela JACOME LAB BLOOD ORDERABLES Final Res ult Performing Organization Address [facility] Co de Phone Number [facility] [address] [facility]. [address] * Histoplasma/Blastomyces Ag, EIA, U (01/27/2025 8:44 PM EDT) [facility] Histoplasma/Blasto myces Ag Result (Urine) Not Detected Not Detected 01/31/2025 11:[address] [facility] Comment: No antigen from Histoplasma or Blastomyces detected. False negative results may occur depending on extent of disease, and/or site of infection. Repeat testing on a new specimen if clinically indicated. Histoplasma/Blasto myces Ag Value (Urine) Not Detected ng/mL 01/31/2025 11:[address] [facility] Comment: ADDITIONAL INFORMATION This test was developed and its performance characteristics determined by [facility] in a manner consistent with CLIA requirements. This test has not been cleared or approved by the U.S. Food and Drug Administration. Test Performed by: [facility] - [address] [address] Tar Worker: Kathy Ortiz Ph.D.; CLIA# [id number] Urine URINE SPECIMEN / Unknown 01/27/2025 8:44 PM EDT 01/31/2025 11:06 AM EDT Shelby Blanco MD URINE ORDERABLES Final Result Performing Organization Address [facility] Co de Phone Number [facility] [address] [place] [address]. [address] * Strep Pneumo-Legionella Urine Antigen (01/27/2025 8:44 PM EDT) Strept Pneumo Ag Negative Negative 01/27/2025 11:[address] [facility] Legionella Antigen Negative Negative 01/27/2025 11:[address] [facility] Urine URINE SPECIMEN / Unknown 01/27/2025 8:44 PM EDT 01/27/2025 10:[address] [facility] - 01/27/2025 11:12 PM EDT Positive indicates detection of either Streptococcus pneumoniae antigen or Legionella pneumophila serogroup 1 antigen. Negative results do not rule out pneumococcal infection or infection with L. pneumophila serogroup 1, other serogroups of L. pneumophila, or other Legionella species. Shelby Blanco MD URINE ORDERABLES Final Result Performing Organization Address [facility] de Phone Number [address] * (ABNORMAL) Urinalysis, Microscopic (01/27/2025 8:44 PM EDT) RBC, UA <1 0 - 3 /HPF 01/27/2025 9:[address] [facility] WBC, UA 1 0 - 5 /HPF 01/27/2025 9:[address] [facility] Hyaline Casts, UA 75(H) 0 - 2 /LPF 01/27/2025 9:[address] [facility] Mucus, UA Present(A) None Seen /HPF 01/27/2025 9:[address] [facility] Urine 01/27/2025 8:44 PM EDT 01/27/2025 9:01 PM EDT us Pamela JACOME URINE ORDERABLES Final Result [facility] [address] [place] [address], [facility] * (ABNORMAL) Urinalysis-Macroscopic w/Rfx to Microsco (01/27/2025 8:44 PM EDT) Color, UA Yellow Yellow,Straw 01/27/2025 9:[address] [facility] Clarity, UA Clear Clear 01/27/2025 9:[address] [facility] Specific [place], UA 1.015 1.005 - 1.035 01/27/2025 9:[address] [facility] pH, UA 5.5 5.0 - 8.0 01/27/2025 9:[address] [facility] Protein, UA 30(A) Negative mg/dL 01/27/2025 9:[address] [facility] Glucose, UA Negative Negative mg/dL 01/27/2025 9:[address] [facility] Ketones, UA 20(A) Negative mg/dL 01/27/2025 9:[address] [facility] Bilirubin, UA Negative Negative 01/27/2025 9:[address] [facility] Blood, UA Negative Negative 01/27/2025 9:[address] [facility] Nitrite, UA Negative Negative 01/27/2025 9:[address] [facility] Urobilinogen, UA <2.0 0.2 - 1.9 mg/dL 01/27/2025 9:[address] [facility] Leukocyte Esterase, UA Negative Negative 01/27/2025 9:[address] [facility] Urine 01/27/2025 8:44 PM EDT 01/27/2025 8:53 PM EDT us Pamela JACOME URINE ORDERABLES Final Result [facility] [address] [facility] [place] [address], [facility] * Histoplasma/Blastomyces Ag, EIA, S (01/27/2025 8:20 PM EDT) Pathologist [facility] Histoplasma/Blasto myces Ag Result (Serum) Not Detected Not Detected 01/30/2025 12:[address] [facility] Comment: No antigen from Histoplasma or Blastomyces detected. False negative results may occur depending on extent of disease, and/or site of infection. Repeat testing on a new specimen if clinically indicated. Histoplasma/Blasto myces Ag Value (Serum) Not Detected ng/mL 01/30/2025 12:[address] [facility] Comment: ADDITIONAL INFORMATION This test was developed and its performance characteristics determined by [facility] in a manner consistent with CLIA requirements. This test has not been cleared or approved by the U.S. Food and Drug Administration. Test Performed by: [facility] - [facility] [address] [place] [address] Tar Worker: Kathy Ortiz Ph.D.; CLIA# [id number] Serum SERUM SPECIMEN / Unknown 01/27/2025 8:20 PM EDT 01/30/2025 12:49 PM EDT Comment:S us Shelby Blanco MD LAB BLOOD ORDERABLES Final Resul t [facility] [address] [facility] [place], [place] [address] * Fungitell (01/27/2025 8:20 PM EDT) Pathologist [facility] Fungitell Value <31.25 pg/mL 4:[address] [facility] Reference Value Comment 4:[address] [facility] Comment:Negative: <60, Posit bradley: >/=60 Clinical Relevance Notes 2024 4:[address] [facility] Comment: The Fungitell test is [...] Cryptococcus, which produce very low levels of (1,3)-javg-A-xyraux. This test will not detect the zygomycetes, such as Absidia, Blastomyces, Mucor, and Rhizopus, which are not known to produce (1,3)-ukgc-K-eqsgaq. In addition, the yeast phase of Blastomyces dermatitidis produces little (1,3)-vlav-Z-ndljno and may not be detected by the assay. Disclaimer: Notes 02/02/2025 4:[address] [facility] Comment: This test has been cleared or approved for diagnostic use by the U.S. Food and Drug Administration. Performance characteristics were verified by [employer]. Electronically signed by: Comment 02/02/2025 4:[address] [facility] Comment:Usha Landin Fungitell Result Comment 02/03/20 4:[address] [facility] Comment:Negative Interpretation Notes 02/02/2025 4:[address] [facility] Comment: (1,3) Xkjr-A-Jxbwde was NOT DETECTED in the sample. Reasons for negative results could include the patient being in the early stage of infection before detectable levels of (1,3) Cmop-T-Bamhxq are present. Clinical diagnosis should be made in the context of the patient's complete medical history. Serum 01/27/2025 8:20 PM EDT 02/02/2025 5:[address] [facility] - 02/02/2025 5:07 PM EDT PERFORMED AT: [employer] [address] [place] [address] [address] [place], [place] [id number] JEWEL BEARING MAKER: Cyril Porter, PhD PHONE: [phone] us Shelby Blanco MD LAB BLOOD ORDERABLES Final Resul t [facility] [address] * Cryptococcus Ag (01/27/2025 8:20 PM EDT) Crypto Ag, Ser Negative Negative 01/27/2025 11:[address] [facility] Crypto Ag Titer, Ser Not Applicable 01/27/2025 11:[address] [facility] Serum SERUM SPECIMEN / Unknown 01/27/2025 8:20 PM EDT 01/27/2025 10:04 PM EDT Comment:S us Shelby Blanco MD LAB BLOOD ORDERABLES Final Resul t [facility] [address] * BK PCR, Blood (Renal Txp and BMT only) (01/27/2025 8:20 PM EDT) Pathologist [facility] BKV IU DNA Quant, Blood Not Detected IU/mL 01/29/2025 1:[address] [facility] Comment: Beginning August 23, 2021, [facility] has transitioned BK viral load testing [...] log 10 IU/mL 01/29/2025 1:[address] [facility] Comment:BKV DNA Not Detected Plasma 01/27/2025 8:20 PM EDT 01/27/2025 9:49 PM EDT us Shelby Blanco MD LAB BLOOD ORDERABLES Final Resul t Performing Organization Address [facility] de Phone Number [facility] [address] * Katie-Schafer Virus (EBV) PCR (01/27/2025 8:20 PM EDT) Pathologist [facility] EBV DNA, Quantitative PCR Not Detected IU/mL 01/28/2025 10:[address] [facility] EBV DNA, Log10 See Note log 10 IU/mL 01/28/2025 10:[address] [facility] Comment: Beginning September 05, 2022, [facility] has transitioned EBV viral load testing [...] Final Resul t Performing Organization Address [facility] Co de Phone Number [facility] [address] * Adenovirus PCR (01/27/2025 8:20 PM EDT) Pathologist [facility] Adenovirus, Quantitative PCR 0 0 - 0 copies/mL 02/03/2025 1:[address] [facility] Comment: Testing performed by [facility], [address] [place] [address]. This test(s) was developed and its performance characteristics determined and validated by the Department of Pathology and Laboratory Medicine at [facility]. It has not been cleared [...] Final Resul t Performing Organization Address [facility] Co de Phone Number [facility] [address] * Aspergillus Ag (01/27/2025 8:20 PM EDT) Aspergillus Ag. 0.03 0.00 - 0.49 Index 01/30/2025 5:[address] [facility] Serum SERUM SPECIMEN / Unknown 01/27/2025 8:20 PM EDT 01/31/2025 4:23 AM EDT Comment:S Shelby Blanco MD BODY FLUIDS AND STOOLS ORDERABLE S Final Result Performing Organization Address [facility] Co de Phone Number [facility] [address] [facility]. [address] * Blood culture-Peripheral (Blood) (01/27/2025 8:20 PM EDT) Only the most recent of2 resultswithin the time period is included. Culture Result No Growth After [address] [facility] Blood BLOOD SPECIMEN / Unknown 01/27/2025 8:20 PM EDT 01/27/2025 9:57 PM EDT Pamela JACOME MICROBIOLOGY - GENERAL ORDERAB LES Final Result Performing Organization Address [facility] Co de Phone Number [facility] [address] [place] [facility]. [address] * Blood Culture, Acid Fast (Blood) (01/27/2025 8:20 PM EDT) Culture Result Culture Negative For Mycobacteria At [address] [facility] Blood SERUM SPECIMEN / Unknown 01/27/2025 8:20 PM EDT 01/27/2025 9:50 PM EDT Comment:S us Shelby Blanco MD MICROBIOLOGY - GENERAL ORDERABLE S Final Result [facility] [address] [facility]. [address] * Fungus culture, blood (Blood) (01/27/2025 8:20 PM EDT) Culture Result No Fungus Isolated At [address] [facility] Blood SERUM SPECIMEN / Unknown 01/27/2025 8:20 PM EDT 01/27/2025 9:50 PM EDT Comment:S us Shelby Blanco MD MICROBIOLOGY - GENERAL ORDERABLE S Final Result Performing Organization Address City/[facility]/ZIP Co de Phone Number [facility] [address] [place], [place] [address]ue [facility]. [address] * (ABNORMAL) Lipase (01/27/2025 8:20 PM EDT) Lipase 3(L) 4 - 82 U/L 01/27/2025 9:[address] [facility] Plasma 01/27/2025 8:20 PM EDT 01/27/2025 8:34 PM EDT us Pamela JACOME LAB BLOOD ORDERABLES Final Res ult [facility] [address] [facility]. [address] * Hemoglobin A1c (01/27/2025 8:20 PM EDT) Hemoglobin A1C 4.0 4.0 - 5.6 % 01/27/2025 11:[address] [facility] Comment: Hemoglobin A1c Interpretation Guidelines: [...] PM EDT 01/27/2025 8:[address] [facility] - 01/27/2025 11:49 PM EDT A1C project?->Yes us Pamela JACOME LAB BLOOD ORDERABLES Final Res ult [facility] [address] * Basic metabolic panel (01/27/2025 8:20 PM EDT) Pathologist [facility] Sodium 136 133 - 146 mmol/L 01/27/2025 9:[address] [facility] Potassium 4.0 3.5 - 5.3 mmol/L 01/27/2025 9:[address] [facility] Chloride 100 98 - 110 mmol/L 01/27/2025 9:[address] [facility] CO2 25 21 - 33 mmol/L 01/27/2025 9:[address] [facility] Anion Gap 11 3 - 16 mmol/L 01/27/2025 9:[address] [facility] BUN 16 7 - 25 mg/dL 01/27/2025 9:[address] [facility] Creatinine 1.02 0.60 - 1.30 mg/dL 01/27/2025 9:[address] [facility] Glucose 93 70 - 100 mg/dL 01/27/2025 9:[address] [facility] Calcium 9.7 8.6 - 10.3 mg/dL 01/27/2025 9:[address] [facility] Osmolality, Calculated 283 278 - 305 mOsm/kg 01/27/2025 9:[address] [facility] EGFR >90 01/27/2025 9:[address] [facility] Comment: As of 2021, the [...] JACOME LAB BLOOD ORDERABLES Final Res ult [facility] [address] [place], [place] [address] * X-ray Chest PA and [...] Quantitative, PCR (11/25/2024 8:42 AM EDT) Pathologist [facility] HIV 1 Copies Not Detected copies/mL 11/26/2024 10:57 AM EDT [facility] Comment:Test methodology for HIV-1 RNA quantification is an FDA-approved nucleic acid amplification assay. The Lower Limit of Quantitation (LLoQ) is 20 copies/mL. The linear range is 20- to 10,000,000 copies/mL. The Limit of Detection (LoD) is 13.2 copies/mL. The reference range is Not Detected. HIV [id number] See Note [id number] /mL 11/26/2024 10:[address] [facility] Comment:HIV-1 RNA not detect ed. Plasma 11/25/2024 8:42 AM EDT 11/25/2024 10:59 AM EDT Narrative [facility] - 11/26/2024 10:57 AM EDT One time lab order to be collected with next set of standing liver transplant labs. UNOS requirement. Please fax all results to [phone]. Call critical results to [phone]. us Harvey Domínguez III, MD LAB BLOOD ORDERABLE S Final Result Performing Organization Address [facility]/ZIP Co de Phone Number [facility] [address] [facility]. [address] * Hepatitis C Antibody (10/25/2024 10:17 PM EDT) HCV Ab Nonreactive Nonreactive 10/25/2024 11:[address] [facility] Comment:Health Department no tified in accordance with reportable infectious disease guidelines. Serum 10/25/2024 10:1 7 PM EDT 10/25/2024 10:[address] [facility] - 10/25/2024 11:16 PM EDT Antibodies to HCV not detected; does not exclude the possibility of exposure to HCV. us Aysha Gill MD LAB BLOOD ORDERABLES F inal Result Performing Organization Address [facility]/ZIP Co de Phone Number [facility] [address] * TSH (Thyroid Stimulating Hormone) (10/07/2024 6:37 PM EDT) TSH 0.81 0.45 - 4.12 uIU/mL 10/07/2024 8:[address] [facility] Serum 10/07/2024 6:37 PM EDT 10/07/2024 6:50 PM EDT us Gerri Peterson MD LAB BLOOD ORDERABLES Final Resu lt [facility] [address] [place] [id number], [facility] from Last 3 Months or Most Recently Relevant to Health Maintenance Additional Health Concerns Infection Onset Date Last Indicated C. difficile 01/28/2025 01/28/2025 Insurance [facility] [employer] Member Subscriber Plan / Payer (Ef fective 2015-Present) Name:Julien Anderson Relation to Subscriber:Self Name:Julien Anderson Payer ID:[id number] (NAIC) Type:Not on file Address: [address] HEALTH CARE [facility] [employer]LOBAL [employer]LOBAL Member Subscriber Plan / Payer (Ef fective 2024-2025) Name:Julien Anderson Relation to Subscriber:Self Name:Julien Anderson Payer ID:[id number] Group ID:Not on file Type:Transplant Address: [address] [place] [address] Advance Directives For more information, please contact: [phone] * Full Code (Latest Code Status on [...] 9:42 AM 09/09/2024 10:30 PM Care Teams Medicaid Analyst Relationship Specialty Start Date End Date Enedina Mcguire NP [address] [place] [address] PCP - General Internal Medicine 10/05/24 Maureen Pantoja, ЮЛИЯ Txp Post Coordinator Transplant Hepatology 10/28/24 Chris Orosco MD [address] [place] [address] [facility] [address] [place] [address] Consulting Physician Transplant Hepatology 02/26/25
--- OUTSIDE RECORDS SUMMARY | 2025-03-20 07:24 | XMS_ITS | Encounter Summary ---
Author Organization [facility] Address [facility] [place] [place] [address] Care Team Providers Care It Application Administrator Name Role Phone Enedina Mcguire NP Primary Care Provider + [phone] Maureen Pantoja RN Unavailable Unavail able Source [...] release of HIV test results or diagnoses. [id number] Health Encounter Details Date Type Department Care [...] Recorded In the past 12 months has [employer], [employer], oil, or water [employer] threatened to shut off services in [...] as of this encounter Care Teams It Application Administrator Relationship Specialty Start Date End Date Enedina Mcguire NP [address] [place] [address] PCP - General Internal Medicine 10/05/24 Maureen Pantjoa, ЮЛИЯ Txp Post Coordinator Transplant Hepatology 10/28/24 documented as of this encounter
--- OUTSIDE RECORDS SUMMARY | 2025-03-20 07:24 | XMS_ITS | Encounter Summary ---
Author Organization [facility] Address [address] [place] [address] Care Team Providers Care Vocal Music Instructor Name Role Phone Enedina Mcgiure NP Primary Care Provider + [phone] Maureen Pantoja RN Unavailable Unavail able Source [...] release of HIV test results or diagnoses. [id number] Reason for Visit * Reason Comments Results Encounter Details Date Type Department Care Team (Riky mcdaniel Contact Info) Description 02/13/2025 Telephone [facility] Liver Transplant at [address] [address] Marisela Martinez MA Results Social [...] In the past 12 months has [employer], gas, oil, or water [employer] threatened to shut off services in [...] after discussionwith transplant ID and transplant nephrology. [employer] message sent to patient. * Mariola Quintana RN - 02/13/2025 9:09 AM EDT Covering RN Coordinator aware. Will route to Txp Provider for further review and recommendations. * Marisela Martinez MA - 02/13/2025 8:38 AM EDT Ashley from [facility] outpt lab called to report a [...] documented as of this encounter Care Teams Vocal Music Instructor Relationship Specialty Start Date End Date Enedina Mcguire NP [address] [place] [address] PCP - General Internal Medicine 10/05/24 Maureen Pantoja, ЮЛИЯ Txp Post Coordinator Transplant Hepatology 10/28/24 documented as of this encounter
--- OUTSIDE RECORDS SUMMARY | 2025-03-20 07:25 | XMS_ITS | Encounter Summary ---
Author Organization [facility] Address [address] [place] [address] Care Team Providers Care Sergeant Of Officers Name Role Phone Enedina Mcguire NP Primary Care Provider [phone] Maureen Pantoja RN Unavailable Unavail able Source [...] release of HIV test results or diagnoses. [id number] Reason for Visit * Reason Comments Medication Refill Encounter Details Date Type Department Care Team (Late st Contact Info) Description 01/17/2025 Refill [facility] Liver Transplant at [address] [address] Harvey Domínguez III, MD [address] [place] [address] Encounter for therapeutic drug monitoring; S/P liver transplant ([facility]); Hypomagnesemia; Kidney transplant recipient; Hypertension, [...] documented as of this encounter Care Teams Sergeant Of Officers Relationship Specialty Start Date End Date Enedina Mcguire NP [address] [place] [address] PCP - General Internal Medicine 10/05/24 Maureen Pantoja, RN Txp Post Coordinator Transplant Hepatology 10/28/24 documented as of this encounter
--- OUTSIDE RECORDS SUMMARY | 2025-03-20 07:25 | XMS_ITS | Encounter Summary ---
Author Organization [facility] Address [address] [place] [address] Care Team Providers Care Edge Stitcher Name Role Phone Enedina Mcgiure NP Primary Care Provider + [phone] Maureen Pantoja RN Unavailable Unavail able Source [...] release of HIV test results or diagnoses. [id number] Health Encounter Details Date Type Department Care Team (Late st Contact Info) Description 02/09/2025 Telephone [facility] Liver Transplant at [address] [place] [address] Marisela Martinez MA Social History Tobacco [...] Recorded In the past 12 months has [employer], [employer], oil, or water [employer] threatened to shut off services in your [...] documented as of this encounter Care Teams Edge Stitcher Relationship Specialty Start Date End Date Enedina Mcguire NP [address] [place] [address] PCP - General Internal Medicine 10/05/24 Maureen Pantoja, ЮЛИЯ Txp Post Coordinator Transplant Hepatology 10/28/24 documented as of this encounter
--- OUTSIDE RECORDS SUMMARY | 2025-03-20 07:25 | XMS_ITS | Encounter Summary ---
Author Organization [facility] Address [address] [place] [address] Care Team Providers Care Nutrition Services Associate Name Role Phone Enedina Mcguire NP Primary Care Provider + [phone] Maureen Pantoja RN Unavailable Unavail able Source [...] release of HIV test results or diagnoses. [id number] Health Encounter Details Date Type Department Care Team (Late st Contact Info) Description 02/04/2025 Telephone [facility] Liver Transplant at [address] [address] Marlene Ro MA Social [...] Recorded In the past 12 months has [employer], gas, oil, or water [employer] threatened to shut off services in your [...] documented as of this encounter Care Teams Nutrition Services Associate Relationship Specialty Start Date End Date Enedina Mcguire NP [address] [place] [address] PCP - General Internal Medicine 10/05/24 Maureen Pantoja, ЮЛИЯ Txp Post Coordinator Transplant Hepatology 10/28/24 documented as of this encounter
--- OUTSIDE RECORDS SUMMARY | 2025-03-20 07:25 | XMS_ITS | Encounter Summary ---
Author Organization [facility] Address [address] [place] [address] Care Team Providers Care Stockroom Keeper Name Role Phone Enedina Mcguire NP Primary Care Provider + [phone] Maureen Pantoja RN Unavailable Unavail able Source [...] release of HIV test results or diagnoses. [id number] Health Encounter Details Date Type Department Care Team (Late st Contact Info) Description 02/09/2025 Chart Note [facility] Liver Transplant at [address] [place] [phone] Marisela Martinez MA Social History Tobacco Use [...] Recorded In the past 12 months has [employer], gas, oil, or water [employer] threatened to shut off services in your [...] documented as of this encounter Care Teams Stockroom Keeper Relationship Specialty Start Date End Date Enedina Mcguire NP [address] [place] [address] PCP - General Internal Medicine 10/05/24 Maureen Pantoja, ЮЛИЯ Txp Post Coordinator Transplant Hepatology 10/28/24 documented as of this encounter
--- OUTSIDE RECORDS SUMMARY | 2025-03-20 07:25 | XMS_ITS | Encounter Summary ---
Author Organization [employer] ([place], [place], [place], [place], [place]) Address [address] [place] [address] Care Team Providers Care Hemstitcher Name Role Phone Unavailable Primary Care Provider Unavailabl e Encounter Details Date Type Department Care Team (Late st Contact Info) Description 06/03/2018 Transcribed Document [facility] [place] [facility] [place] [address] ProviderEbenezer MD [address] [place], [place] [id number] Social History Tobacco Use Types Packs/Day Years [...] Historical ProviderMD - 06/03/2018 2:24 PM REGULATORY ASSISTANT Electronically signed by Gabriela [facility] Conversion Swimming Pool Salesperson Cerner at 08/29/2022 6:41 PM CDT documented in this encounter Plan of Treatment Not on file documented as of this encounter Visit Diagnoses Not on filedocumented in this encounter
--- OUTSIDE RECORDS SUMMARY | 2025-03-20 07:25 | XMS_ITS | Encounter Summary ---
Author Organization [employer] ([place], [place], [place], [place], [place]) Address [address] [place] [address] Care Team Providers Care Power Cutting Machine Operator Name Role Phone Unavailable Primary Care Provider Carmen jimenez Encounter Details Date Type Department Care Team (Late st Contact Info) Description 06/03/2018 Transcribed Document [facility] Family Medicine [facility] [place] [address] ProviderEbenezer MD [address] [place] [address] Social History Tobacco Use Types [...] - Historical ProviderMD - 06/03/2018 3:04 PM [employer] [address] [place] [address] Patient Information Name: JULIEN ZELAYA [...] [address] [place] [address] Breath of Life (1) Within 2 to 3 days Patient [...] off of the skin. General Instructions??? Take owkf-yjw-ivpavgc and prescription medicines only as told by [...] 04/30/2006 Document Revised: 09/29/2016 Document Reviewed: 04/26/2015 [employer] Patient Education ? 2017 [employer] Allergies: No Known Medication Allergies Medication [...] Assistance with quitting is available by contacting 7-847-KPSW-NOW. This is a free resource providing counseling, [...] Electronic Communications Privacy Act 18 U.S.C. ???Sections 0745-9549,?? and contain information intended for the specified [...] sure to sign up for the [facility] patient portal, which gives you 04/12 access to your medical information ??? including these discharge instructions ??? using your computer, smartphone, or tablet. Just go to [employer] to get started. Questions? Call . Acknowledgment [...]
--- OUTSIDE RECORDS SUMMARY | 2025-03-20 07:25 | XMS_ITS | Encounter Summary ---
Author Organization [employer] ([place], [place], [place], [place]) Address [address] [place] [address] Care Team Providers Care Crime Scene Examiner Name Role Phone Unavailable Primary Care Provider Unavailabl e Encounter Details Date Type Department Care Team (Late st Contact Info) Description 06/03/2018 Transcribed Document [facility] Family Medicine [address] [place] [address] ProviderEbenezer MD [address] [place], [place] [id number] Social History Tobacco Use Types Packs/Day Years [...] - Historical ProviderMD - 06/03/2018 12:08 PM MANAGER MACHINE ED Assessment Entered On: 06/03/2018 14:51 EST Performed On: 06/03/2018 13:50 EST by Lizeth Almeida, LUMBER KILN OPERATOR Quick Look Assessment Level of Consciousness : Alert Affect/Behavior : Calm, Cooperative Orientation : Oriented x 4 Skin Color : Other: [place] Skin Temperature : Warm Skin Description : Dry Lizeth Almeida, RN - 06/03/2018 14:50 EST ED General-Functional Assess Communication Barrier : None Primary Language : Lebanese Any Spiritual/Cultural Needs or Requests : No [...]
--- OUTSIDE RECORDS SUMMARY | 2025-03-20 07:25 | XMS_ITS | Encounter Summary ---
Author Organization [employer] ([place], [place], [place], [place]) Address [address] [place] [address] Care Team Providers Care Curing Machine Operator Name Role Phone Unavailable Primary Care Provider Unavaillia e Encounter Details Date Type Department Care Team (Late st Contact Info) Description 06/03/2018 Transcribed Document [facility] Family Medicine [facility] [place] [address] ProviderEbenezer MD [address] [place] [address] Social History Tobacco Use Types [...] - Historical ProviderMD - 06/03/2018 3:04 PM CUSHION COVER INSPECTOR [place] [address] [place] [address] PERSON INFORMATION Name JULIEN ZELAYA Age 33 Years 1985 Sex Male Language Czech PCP SALLY EVERETT (REF) T Marital Status Single Med Service Emergency Medicine Acct# Arrival 06/03/2018 12:08:00 Visit Reason Finger laceration; CUT FINGERS Acuity 3 - Urgent LOS 000 02:56 Depart Date: 06/03/18 03:04 PM Address: [facility] [address] Comment: PROVIDER INFORMATION Provider Role Assigned Unassigned Lizeth Almeida, RESEARCH PROFESSOR Nurse 06/03/2018 12:39:09 DOMINIQUE BREWER PA-C ED [...] PURI # [address]C [address] [place], [place] [id number] Blood cell Storage ([employer] Within 2 to 3 days Comment: documented in this encounter Plan of Treatment Not on file documented as of this encounter Visit Diagnoses Not on filedocumented in this encounter
--- OUTSIDE RECORDS SUMMARY | 2025-03-20 07:25 | XMS_ITS | Encounter Summary ---
Author Organization [facility] Address [address] [place] [address] Care Team Providers Care Wheel Polisher Name Role Phone Enedina Mcguire NP Primary Care Provider + [phone] Maureen Pantoja RN Unavailable Unavail able Source [...] release of HIV test results or diagnoses. [id number] Health Encounter Details Date Type Department Care Team (Late st Contact Info) Description 02/03/2025 Telephone [facility] Liver Transplant at [address] [address] Marlene Ro MA Social History [...] Recorded In the past 12 months has [employer], gas, oil, or water [employer] threatened to shut off services in [...] documented as of this encounter Care Teams Wheel Polisher Relationship Specialty Start Date End Date Enedina Mcguire NP [address] [place] [address] PCP - General Internal Medicine 10/05/24 Maureen Pantoja, RN Txp Post Coordinator Transplant Hepatology 10/28/24 documented as of this encounter
--- OUTSIDE RECORDS SUMMARY | 2025-03-20 07:25 | XMS_ITS | Encounter Summary ---
Author Organization [employer] ([place], [place], [place], [place], [place]) Address [address] [place] [address] Care Team Providers Care Strap Sewer Name Role Phone Unavailable Primary Care Provider Carmen e Encounter Details Date Type Department Care Team (Late st Contact Info) Description 06/03/2018 Transcribed Document [facility] Medicine [facility] [place] [address] ProviderEbenezer MD [address] [place], [place] [id number] Social History Tobacco Use Types Packs/Day Years [...] - Historical ProviderMD - 06/03/2018 1:05 PM LAWN SPRINKLER INSTALLER Patient: JULIEN ZELAYA Age: 33 years Sex: [...] 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 lacerations noted with bleeding controlled . History [...] EST Height Source Stated Height Entry Format [place] Height/Length, [facility] (ft) 6 ft Height/Length [facility] 4 Inch CLINICALHEIGHT 193.04 cm [place]add Body Weight 85.74 kg Weight Source, ED Standing scale Weight Entry Format [place] Weight Tristanian lb 265 lb CLINICALWEIGHT 120.45 kg Body [...] 14:22 EST, Discharge to: Home. Prescriptions: Prescription [facility]: Keflex 500 mg oral capsule (Prescribe): [...]
--- OUTSIDE RECORDS SUMMARY | 2025-03-20 07:25 | XMS_ITS | Encounter Summary ---
Author Organization [facility] Address [address] [place] [address] Care Team Providers Care Forest Ranger Technician Name Role Phone Enedina Mcguire NP Primary Care Provider + [phone] Maureen Pantoja RN Unavailable Unavail able Source [...] release of HIV test results or diagnoses. [id number] Health Encounter Details Date Type Department Care Team (Late st Contact Info) Description 02/23/2025 Telephone [facility] Liver Transplant at [address] [address] Marlene Ro MA Social History [...] Recorded In the past 12 months has [employer], gas, oil, or water [employer] threatened to shut off services in [...] as of this encounter Care Teams Forest Ranger Technician Relationship Specialty Start Date End Date Enedina Mcguire NP [address] [place] [address] PCP - General Internal Medicine 10/05/24 Maureen Pantoja, ЮЛИЯ Txp Post Coordinator Transplant Hepatology 10/28/24 documented as of this encounter
--- OUTSIDE RECORDS SUMMARY | 2025-03-20 07:25 | XMS_ITS | Encounter Summary ---
Author Organization [facility] Address [address] [place] [address] Care Team Providers Care Lithographic Etcher Name Role Phone Enedina Mcguire NP Primary Care Provider + [phone] Maureen Pantoja RN Unavailable Unavail able Source [...] release of HIV test results or diagnoses. [id number] Reason for Visit * Reason Comments Results Encounter Details Date Type Department Care Team (Riky st Contact Info) Description 01/16/2025 Telephone [facility] Liver Transplant at [address] [address] Maureen Pantoja, RN Results [...] In the past 12 months has e [employer], gas, oil, or water [employer] threatened to shut off services in your [...] as of this encounter Care Teams Lithographic Etcher Relationship Specialty Start Date End Date Enedina Mcguire NP [address] [place] [address] PCP - General Internal Medicine 10/05/24 Maureen Pantoja, ЮЛИЯ Txp Post Coordinator Transplant Hepatology 10/28/24 documented as of this encounter
--- OUTSIDE RECORDS SUMMARY | 2025-03-20 07:25 | XMS_ITS | Encounter Summary ---
Author Organization [facility] Address [address] [place] [address] Care Team Providers Care Orthotic Technician Name Role Phone Enedina Mcguire NP Primary Care Provider [phone] Maureen Pantoja RN Unavailable Unavail able Source [...] release of HIV test results or diagnoses. [id number] Reason for Visit * Reason Comments Results Encounter Details Date Type Department Care Team (Riky st Contact Info) Description 02/03/2025 Telephone [facility] Liver Transplant at [address] [address] Mitzy Gill MA Results Social [...] Recorded In the past 12 months has [employer], gas, oil, or water company threatened [...] EDT Patient ended up being admitted to [facility] (01/27/25-01/30/25) after these tests were ordered but beforehe went to his local lab. Patient tested positive for C.diff at [facility] on 01/28/25. He is currently on Dificid 200 mg BID until 02/06/25. Patient tested negative for Norovirus at [facility] on 01/27/25. Patient's MMF is currently on hold. Will route results to Ctp Provider for further review. * Mitzy Gill MA - 02/03/2025 3:23 PM EDT Armida from [facility] called to report critical value [...] documented as of this encounter Care Teams Orthotic Technician Relationship Specialty Start Date End Date Enedina Mcguire NP [address] [place] [address] PCP - General Internal Medicine 10/05/24 Maureen Pantoja, RN Txp Post Coordinator Transplant Hepatology 10/28/24 documented as of this encounter
--- OUTSIDE RECORDS SUMMARY | 2025-03-20 07:25 | XMS_ITS | Encounter Summary ---
Author Organization [facility] Address [address] [place] [address] Care Team Providers Care Lead Designer Name Role Phone Enedina Mcguire NP Primary Care Provider + [phone] Maureen Pantoja RN Unavailable Unavail able Source [...] release of HIV test results or diagnoses. [id number] Health Encounter Details Date Type Department Care Team (Late st Contact Info) Description 01/15/2025 Chart Note [facility] Liver Transplant at [address] [place] [phone] Marlene Ro MA 01/14 Labs entered from [facility] Social History Tobacco Use Types [...] In the past 12 months has [employer], gas, oil, or water [employer] threatened to shut off services in your [...] were not included. 01/14 Labs entered from [facility] documented in this encounter Plan [...] - 15 ng/mL Whole Blood Result [facility] Provider LAB BLOOD ORDERABLES Denisse l Result * (ABNORMAL) Magnesium (01/14/2025 10:53 AM EDT) [facility] Magnesium 1.2(A) 1.6 - 2.4 mg/dL Plasma Narrative Resulting Agency Comment [facility] Result [facility] LAB BLOOD ORDERABLES Denisse l Result * Renal Function Panel w/o EGFR (01/14/2025 10:53 AM EDT) [facility] Glucose 94 BUN 19 CO2 21 13 - 22 mmol/L Creatinine 1.00 Potassium 4.4 Sodium 140 Chloride 109 Phosphorus 4.8 2.5 - 4.9 mg/dL Calcium 9.5 EGFR 82 mg/dL Albumin 4.8 3.5 - 5.0 g/dL Blood Narrative Resulting Agency Comment [facility] Result [facility] LAB BLOOD ORDERABLES Denisse l Result * Creatinine, urine, random (01/14/2025 10:53 AM EDT) [facility] Creatinine, Urine 90 Urine Narrative Resulting Agency Comment [facility] Result [facility] Provider URINE ORDERABLES Final Re sult * Urinalysis w/Rfl to Microscopic (01/14/2025 10:53 AM EDT) [facility] Glucose, UA Negative Negative Ketones, UA Negative Negative Blood, UA Negative Negative Bilirubin, UA Negative Negative Urobilinogen, UA Normal Normal Protein, UA Negative Negative Nitrite, UA Negative Negative pH, UA 5.5 4.5 - 8.0 Specific [place], UA 1.020 1.005 - 1.030 Clarity, UA Clear Clear Color, UA Yellow Light Yellow, Yellow Urine Narrative Resulting Agency Comment [facility] Result [facility] Provider URINE ORDERABLES Final Re [...] 2.0 10^3/mL Blood Narrative Resulting Agency Comment [facility] Result [facility] LAB BLOOD ORDERABLES Denisse l Result * Urine Protein, Tot, Random (w/o Creat) (01/14/2025 10:53 AM EDT) Total Protein, Ur 13.0 Urine Narrative Resulting Agency Comment [facility] Result [facility] Provider URINE ORDERABLES Final Re sult * Hepatic Function Panel (01/14/2025 10:53 AM EDT) Bilirubin, Direct 0.2 Bilirubin, Indirect 0.5 Alkaline Phosphatase 49 ALT 15 AST 24 Total Bilirubin 0.7 Total Protein 6.8 Plasma Narrative Resulting Agency Comment [facility] Result [facility] Provider LAB BLOOD ORDERABLES [...] as of this encounter Care Teams Lead Designer Relationship Specialty Start Date End Date Enedina Mcguire NP [address] [place] [address] PCP - General Internal Medicine 10/05/24 Maureen Pantoja, ЮЛИЯ Txp Post Coordinator Transplant Hepatology 10/28/24 documented as of this encounter
--- OUTSIDE RECORDS SUMMARY | 2025-03-20 07:25 | XMS_ITS | Encounter Summary ---
Author Organization [facility] Address [address] [place] [address] Care Team Providers Care Brush Washer Name Role Phone Enedina Mcguire NP Primary Care Provider + [phone] Maureen Pantoja RN Unavailable Unavail able Source [...] release of HIV test results or diagnoses. [id number] Health Encounter Details Date Type Department Care Team (Late st Contact Info) Description 02/17/2025 Telephone [facility] Liver Transplant at [address] [address] Marlene Ro MA Social History [...] Recorded In the past 12 months has [employer], gas, oil, or water [employer] threatened to shut off services in your [...] documented as of this encounter Care Teams Brush Washer Relationship Specialty Start Date End Date Enedina Mcguire NP [address] [place] [address] PCP - General Internal Medicine 10/05/24 Maureen Pantoja, ЮЛИЯ Txp Post Coordinator Transplant Hepatology 10/28/24 documented as of this encounter
--- OUTSIDE RECORDS SUMMARY | 2025-03-20 07:25 | XMS_ITS ---
Author Organization [facility] Address [facility] [place] [address] Care Team Providers Care Physician Credentialing Specialist Name Role Phone Enedina Mcguire NP Primary Care Provider + [phone] Maureen Pantoja RN Unavailable Unavail able Chris Orosco MD Unavailable [phone] Transplant Episode Liver Recipient [facility] ([place], [place]) [facility] Organ Received: Liver Transplanted on 10/26/2024 Marked as Active Follow-up on 10/26/2024 Liver CoordinatorMaureen Pantoja RN Phone: N/A Fax: N/A Email: N/A [place] Organ Diagnosis Organ Primary Contributory Liver Alcohol-Associated [...] N/A Chris Orosco MD Referring Physician Txp Creative Services Producer [phone] N/A Maureen Pantoja RN Txp Post Coordinator N/A N/A N/A NUBIA Barros Txp Asset Accountant N/A N/A N/A Harvey Domínguez III, MD Txp Surgeon [phone] N/A Mary Butler RN Txp Pre Coordinator N/A N/A N/A Events Post-Transplant Pre-Transplant Admitted: 10/25/2024 Referred: 08/13/2024 Transplanted: 10/26/2024 Evaluation began: 5 Discharged: 11/02/2024 Committee: 10/14/2024 Center waitlisted: 5 Pending Checklist Tasks (Due on or before 04/19/2025) Name Due Date Attached Appoint ment Social Work Consult 01/05/2025
--- OUTSIDE RECORDS SUMMARY | 2025-03-20 07:25 | XMS_ITS ---
Author Organization [facility] Address [facility] [place] [address] Care Team Providers Care Body Welder Name Role Phone Enedina Mcguire NP Primary Care Provider + [phone] Maureen Pantoja RN Unavailable Unavail able Chris Orosco MD Unavailable [phone] Transplant Episode Kidney Recipient [facility] ([place], [place]) - [facility] Organ Received: Left Kidney Transplanted on 10/27/2024 Marked as Active Follow-up on 10/27/2024 Kidney CoordinatorJosr Weber RN Phone: N/A Fax: N/A Email: N/A [place] Organ Diagnosis Organ Primary Contributory Kidney Hepatorenal [...] N/A N/A Flaquito Mayen MD Txp Surgeon [phone] N/A Bruno Gonzalez MD Txp Answerer [phone] N/A Yovanny Curran MD Referring Physician [phone] N/A Events Post-Transplant Pre-Transplant Admitted: 10/25/2024 Referred: 10/07/2024 Transplanted: 10/27/2024 Evaluation began: 5 Discharged: 11/02/2024 Committee: 10/20/2024 Center waitlisted: 5 Appointments (02/17/2025 - 04/19/2025) When With Visit Type Description 02/25/2025 Tx Renal - Sara Gonzalez Established Patient K idney transplant recipient (Primary Dx); Neck pain with history of cervical spinal surgery; S/P liver transplant (CMS-HCC)
--- OUTSIDE RECORDS SUMMARY | 2025-03-20 07:25 | XMS_ITS | Encounter Summary ---
Author Organization [facility] Address [address] [place] [address] Care Team Providers Care Liquid Fertilizer Servicer Name Role Phone Enedina Mcguire NP Primary Care Provider [phone] Maureen Pantoja RN Unavailable Unavail able Source [...] release of HIV test results or diagnoses. [id number] Reason for Visit * Reason Comments Medication Refill Encounter Details Date Type Department Care Team (Late st Contact Info) Description 02/08/2025 Refill [facility] Liver Transplant at [address] [phone] Harvey Domínguez III, MD [address] [place] [phone] Social History Tobacco Use Types Packs/Day Years Used Date Smoking Tobacco: Former Cigarettes Smokeless Tobacco: Current Alcohol Use Standard Drinks/Week Comments Yes 0 (1 standard drink = 0.6 oz pure alcohol) History of alcohol abuse, reports no use in 3 week- typically endorses use as 4 glasses of wine a days Utilities Answer Date Recorded In the past 12 months has [employer], gas, oil, or water [employer] threatened to shut off services in your [...] documented as of this encounter Care Teams Liquid Fertilizer Servicer Relationship Specialty Start Date End Date Enedina Mcguire NP [address] [place] [address] PCP - General Internal Medicine 10/05/24 Maureen Pantoja, ЮИЛЯ Txp Post Coordinator Transplant Hepatology 10/28/24 documented as of this encounter
--- OUTSIDE RECORDS SUMMARY | 2025-03-20 07:25 | XMS_ITS | Encounter Summary ---
Author Organization [facility] Address [address] [place] [address] Care Team Providers Care Supervisor Insecticide Name Role Phone Enedina Mcguire NP Primary Care Provider + [phone] Maureen Pantoja RN Unavailable Unavail able Source [...] release of HIV test results or diagnoses. [id number] Health Encounter Details Date Type Department Care Team (Late st Contact Info) Description 02/12/2025 Social Work [facility] Liver Transplant at [address] [place] [phone] Kaylin Willard MSW Social History Tobacco Use [...] Recorded In the past 12 months has [employer], gas, oil, or water [employer] threatened to shut off services in your [...] for marijuana use and transplant. NUBIA Barros, NOISE ABATEMENT ENGINEER Transplant Sheet Metal Contractor documented in this encounter Plan of Treatment Not on file documented as of this encounter Visit Diagnoses Not on filedocumented in this encounter Additional Health Concerns Infection Onset Date Last Indicated Resolved Time C. difficile 01/28/2025 01/28/2025 Assessment Noted Time PHQ-9 Depression Total Score: 2 12/11/19 25 9:00 AM EDT documented as of this encounter Care Teams Supervisor Insecticide Relationship Specialty Start Date End Date Enedina Mcguire NP [address] [place] [address] PCP - General Internal Medicine 10/05/24 Maureen Pantoja, RN Txp Post Coordinator Transplant Hepatology 10/28/24 documented as of this encounter
--- OUTSIDE RECORDS SUMMARY | 2025-03-20 07:25 | XMS_ITS | Referral Summary ---
Author Organization [email or web address] ([place], [place], [place], [place], [place]) Address [address] [place] [address] Care Team Providers Care Geomagnetician Name Role Phone Unavailable Primary Care Provider [...]
--- OUTSIDE RECORDS SUMMARY | 2025-03-20 07:25 | XMS_ITS | Clinical Summary ---
Author Organization [employer] ([place], [place], [place], [place], [place]) Address [address] [place] [address] Care Team Providers Care Vp Of Marketing Name Role Phone Unavailable Primary Care Provider [...]
--- OUTSIDE RECORDS SUMMARY | 2025-03-20 07:25 | XMS_ITS | Encounter Summary ---
Author Organization [facility] Address [address] [place] [address] Care Team Providers Care Engineering Drafter Name Role Phone Enedina Mcguire NP Primary Care Provider + [phone] Maureen Pantoja RN Unavailable Unavail able Source [...] release of HIV test results or diagnoses. [id number] Health Encounter Details Date Type Department Care Team (Late st Contact Info) Description 02/03/2025 Chart Note [facility] Liver Transplant at [address] [place] [phone] Marlene Ro MA 02/03 Labs entered from [facility] Social History Tobacco Use Types Packs/Day Years Used Date Smoking Tobacco: Former Cigarettes Smokeless Tobacco: Current Alcohol Use Standard Drinks/Week Comments Yes 0 (1 standard drink = 0.6 oz pure alcohol) History of alcohol abuse, reports no use in 3 week- typically endorses use as 4 glasses of wine a days Utilities Answer Date Recorded In the past 12 months has [employer], gas, oil, or water [employer] threatened to shut off services in [...] were not included. 02/03 Labs entered from [facility] documented in this encounter Plan [...] Positive Norovirus Detected FECES / Unknown Result [facility] Provider BODY FLUIDS AND STOOLS OR DERABLES Edited Result - Final * Phatidylethanol (PEth) (02/03/2025 9:39 AM EDT) Phosphatidylethanol (PEth) Positive 312 Whole Blood Result [facility] LAB BLOOD ORDERABLES Denisse l Result * Tacrolimus level (02/03/2025 9:39 AM EDT) Tacrolimus Lvl 7.0 6 - 15 ng/mL Whole Blood Narrative Resulting Agency Comment [facility] Result [facility] LAB BLOOD ORDERABLES Denisse l Result * Cytomegalovirus DNA, Quant, RT PCR (02/03/2025 9:39 AM EDT) CMV Quant DNA PCR (Plasma) Negative Plasma Narrative Resulting Agency Comment [facility] Result [facility] LAB BLOOD ORDERABLES Denisse l Result * BK Virus Quantitative by PCR, Blood (02/03/2025 9:39 AM EDT) BK Virus Quant PCR PL Negative Plasma Narrative Resulting Agency Comment [facility] Result [facility] LAB BLOOD ORDERABLES Denisse l Result * Creatinine, urine, random (02/03/2025 9:39 AM EDT) Creatinine, Urine 79 Urine Narrative Resulting Agency Comment [facility] Result [facility] Provider URINE ORDERABLES Final Re sult * Urine Protein, Tot, Random (w/o Creat) (02/03/2025 9:39 AM EDT) Pathologist [facility] Total Protein, Ur 12.0 Urine Narrative Resulting Agency Comment [facility] Result [facility] Provider URINE ORDERABLES Final Re sult * Hepatic Function Panel (02/03/2025 9:39 AM EDT) Pathologist [facility] Bilirubin, Direct 0.1 Bilirubin, Indirect 0.4 Alkaline Phosphatase 61 ALT 15 AST 18 Total Bilirubin 0.5 Total Protein 6.4 Plasma Narrative Resulting Agency Comment [facility] Result [facility] LAB BLOOD ORDERABLES Denisse l Result * (ABNORMAL) Magnesium (02/03/2025 9:39 AM EDT) [facility] Magnesium 1.3(A) 1.6 - 2.4 mg/dL Plasma Narrative Resulting Agency Comment [facility] Result [facility] Provider LAB BLOOD ORDERABLES Denisse l Result * (ABNORMAL) Renal Function Panel w/o EGFR (02/03/2025 9:39 AM EDT) Pathologist [facility] Glucose 114 BUN 17 CO2 28(A) 13 - 22 mmol/L Creatinine 0.90 Potassium 4.1 Sodium 140 Chloride 103 Phosphorus 5.5(A) 2.5 - 4.9 mg/dL Calcium 9.4 EGFR 93 mg/dL Albumin 4.5 3.5 - 5.0 g/dL Blood Narrative Resulting Agency Comment [facility] Result [facility] Provider LAB BLOOD ORDERABLES Denisse l Result * Urinalysis w/Rfl to Microscopic (02/03/2025 9:39 AM EDT) Pathologist [facility] Glucose, UA Negative Negative Ketones, UA Negative Negative Blood, UA Negative Negative Bilirubin, UA Negative Negative Urobilinogen, UA Normal Normal Protein, UA Negative Negative Nitrite, UA Negative Negative pH, UA 6.0 4.5 - 8.0 Specific [place], UA 1.020 1.005 - 1.030 Clarity, UA Clear Clear Color, UA Yellow Light Yellow, Yellow Urine Narrative Resulting Agency Comment [facility] Historical Provider URINE ORDERABLES Final [...] Agency Comment [facility] Historical Provider LAB BLOOD ORDERABLES Denisse l Result documented in this encounter Visit Diagnoses Not on filedocumented in this encounter Additional Health Concerns Infection Onset Date Last Indicated Resolved Time C. difficile 01/28/2025 01/28/2025 Assessment Noted Time PHQ-9 Depression Total Score: 2 12/11/19 25 9:00 AM EDT documented as of this encounter Care Teams Engineering Drafter Relationship Specialty Start Date End Date Enedina Mcguire NP [address] [place] [address] PCP - General Internal Medicine 10/05/24 Maureen Pantoja, ЮЛИЯ Txp Post Coordinator Transplant Hepatology 10/28/24 documented as of this encounter
--- OUTSIDE RECORDS SUMMARY | 2025-03-20 07:25 | XMS_ITS | Encounter Summary ---
Author Organization [employer] ([place], [place], [place], [place], [place]) Address [address] [place] [address] Care Team Providers Care Ship Cleaner Name Role Phone Unavailable Primary Care Provider Unavailabl e Encounter Details Date Type Department Care Team (Late st Contact Info) Description 06/03/2018 Transcribed Document [facility] Family Medicine [facility] [place] [address] ProviderEbenezer MD [address] [place], [place] [id number] Social History Tobacco Use Types Packs/Day Years [...] - Historical ProviderMD - 06/03/2018 3:03 PM NETWORK SERVICES PROJECT MANAGER ED Discharge Entered On: 06/03/2018 15:03 EST Performed On: 06/03/2018 15:03 EST by Lizeth Almeida, music educator Process Patient Disposition : Discharge Personal Belongings [...] - 06/03/2018 15:03 EST Electronically signed by [facility] Conversion Paunch Trimmer [place] at 08/29/2022 6:35 PM CDT documented in this encounter Plan of Treatment Not on file documented as of this encounter Visit Diagnoses Not on filedocumented in this encounter
--- OUTSIDE RECORDS SUMMARY | 2025-03-20 07:25 | XMS_ITS | Encounter Summary ---
Author Organization [facility] Address [address] [place] [address] Care Team Providers Care Coagulation Operator Name Role Phone Enedina Mcguire NP Primary Care Provider + [phone] Maureen Pantoja RN Unavailable Unavail able Source [...] release of HIV test results or diagnoses. [id number] Health Encounter Details Date Type Department Care Team (Late st Contact Info) Description 02/10/2025 Chart Note [facility] Liver Transplant at [address] [place] [phone] Marlene Ro MA 02/10 Labs entered from [facility] Social History Tobacco Use Types Packs/Day Years Used Date Smoking Tobacco: Former Cigarettes Smokeless Tobacco: Current Alcohol Use Standard Drinks/Week Comments Yes 0 (1 standard drink = 0.6 oz pure alcohol) History of alcohol abuse, reports no use in 3 week- typically endorses use as 4 glasses of wine a days Utilities Answer Date Recorded In the past 12 months has [employer], gas, oil, or water [employer] threatened to shut off services in your [...] were not included. 02/10 Labs entered from [facility] documented in this encounter Plan [...] Phosphatidylethanol (PEth) Positive 288 Whole Blood Result [facility] MD LAB BLOOD ORDERABLES Denisse l Result * BK Virus Quantitative by PCR, Blood (02/10/2025 9:33 AM EDT) [facility] BK Virus Quant PCR PL Negative Plasma Result [facility] MD LAB BLOOD ORDERABLES Denisse l Result * Tacrolimus level (02/10/2025 9:33 AM EDT) [facility] Tacrolimus Lvl 12.5 6 - 15 ng/mL Whole Blood Result [facility] MD LAB BLOOD ORDERABLES Denisse l Result * Cytomegalovirus DNA, Quant, RT PCR (02/10/2025 9:33 AM EDT) [facility] CMV Quant DNA PCR (Plasma) Negative Plasma Result [facility] MD LAB BLOOD ORDERABLES Denisse l Result * (ABNORMAL) Magnesium (02/10/2025 9:33 AM EDT) [facility] Magnesium 1.4(A) 1.6 - 2.4 mg/dL Plasma Narrative Resulting Agency Comment [facility] Result [facility] MD LAB BLOOD ORDERABLES Denisse l Result * (ABNORMAL) Renal Function Panel w/o EGFR (02/10/2025 9:33 AM EDT) [facility] Glucose 101 BUN 15 CO2 26(A) 13 - 22 mmol/L Creatinine 0.90 Potassium 4.1 Sodium 141 Chloride 102 Phosphorus 4.8 2.5 - 4.9 mg/dL Calcium 9.4 EGFR 93 mg/dL Albumin 4.7 3.5 - 5.0 g/dL Blood Narrative Resulting Agency Comment [facility] Result [facility] LAB BLOOD ORDERABLES Denisse l Result * Creatinine, urine, random (02/10/2025 9:33 AM EDT) Creatinine, Urine 62 Urine Narrative Resulting Agency Comment [facility] Result [facility] Provider URINE ORDERABLES Final Re sult * Urinalysis w/Rfl to Microscopic (02/10/2025 9:33 AM EDT) Pathologist [facility] Glucose, UA Negative Negative Ketones, UA Negative Negative Blood, UA Negative Negative Bilirubin, UA Negative Negative Urobilinogen, UA Normal Normal Protein, UA Negative Negative pH, UA 6.0 4.5 - 8.0 Specific [place], UA 1.020 1.005 - 1.030 Clarity, UA Clear Clear Color, UA Yellow Light Yellow, Yellow Urine Narrative Resulting Agency Comment [facility] Result [facility] Provider URINE ORDERABLES Final Re [...] 10^3/mL Blood Narrative Resulting Agency Comment [facility] Result [facility] Provider LAB BLOOD ORDERABLES Denisse l Result * Urine Protein, Tot, Random (w/o Creat) (02/10/2025 9:33 AM EDT) Total Protein, Ur 13.0 Urine Narrative Resulting Agency Comment [facility] Provider URINE ORDERABLES Final Re sult * Hepatic Function Panel (02/10/2025 9:33 AM EDT) Bilirubin, Direct 0.4 Bilirubin, Indirect 0.4 Alkaline Phosphatase 74 ALT 16 AST 25 Total Bilirubin 0.7 Total Protein 6.7 Plasma Narrative Resulting Agency Comment [facility] Result [facility] Provider LAB BLOOD ORDERABLES Denisse l Result documented in this encounter Visit Diagnoses Not on filedocumented in this encounter Additional Health Concerns Infection Onset Date Last Indicated Resolved Time C. difficile 01/28/2025 01/28/2025 Assessment Noted Time PHQ-9 Depression Total Score: 2 12/11/19 25 9:00 AM EDT documented as of this encounter Care Teams Coagulation Operator Relationship Specialty Start Date End Date Enedina Mcguire NP [address] [place] [address] PCP - General Internal Medicine 10/05/24 Maureen Pantoja, RN Txp Post Coordinator Transplant Hepatology 10/28/24 documented as of this encounter
--- OUTSIDE RECORDS SUMMARY | 2025-03-20 07:25 | XMS_ITS | Encounter Summary ---
Author Organization [facility] Address [address] [place] [address] Care Team Providers Care Manager Of Operations Name Role Phone Enedina Mcguire NP Primary Care Provider + [phone] Maureen Pantoja RN Unavailable Unavail able Source [...] release of HIV test results or diagnoses. [id number] Reason for Visit * Reason Comments Results Encounter Details Date Type Department Care Team (Riky st Contact Info) Description 02/12/2025 Telephone [facility] Liver Transplant at [address] [address] Maureen Pantoja, RN Results [...] Recorded In the past 12 months has [employer], gas, oil, or water company threatened to [...] of this encounter Care Teams Manager Of Operations Relationship Specialty Start Date End Date Enedina Mcguire NP [address] [place] [address] PCP - General Internal Medicine 10/05/24 Maureen Pantoja, ЮЛИЯ Txp Post Coordinator Transplant Hepatology 10/28/24 documented as of this encounter
--- OUTSIDE RECORDS SUMMARY | 2025-03-20 07:25 | XMS_ITS | Encounter Summary ---
Author Organization [employer] ([place], [place], [place], [place], [place]) Address [address] [place] [address] Care Team Providers Care Building Maintenance Custodian Name Role Phone Unavailable Primary Care Provider Unavailabl e Encounter Details Date Type Department Care Team (Late st Contact Info) Description 06/03/2018 Transcribed Document [facility] Family Medicine [facility] [place] [address] ProviderEbenezer MD [address] [place] [address] Social History Tobacco Use Types [...] - Historical ProviderMD - 06/03/2018 12:08 PM POWER MANAGER ED Triage Entered On: 06/03/2018 12:17 EST Performed On: 06/03/2018 12:12 EST by KANU VELEZ RN ED Triage Across the Room Triage Date/Time : 06/03/2018 12:12 EST Chief Complaint : lacerations to rt index and left middle finger 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 lacerations noted with bleeding controlled KANU VELEZ RN - 06/03/2018 12:12 EST DCP GENERIC CODE Tracking Acuity : 3 - Urgent Tracking Group : [facility] KANU VELEZ RN - 06/03/2018 [...] 12:17:41 EST) Problems(Active) HTN (hypertension) (SNOMED CT :[id number] ) Name of Problem: HTN (hypertension) ; Recorder: KANU VELEZ RN; Confirmation: Confirmed ; Classification: Medical ; Code: [id number] ; Contributor System: ECO ; Last Updated: 06/03/2018 12:14 EST ; Life Cycle Date: 06/03/2018 ; Life Cycle Status: Active ; Vocabulary: SNOMED CT Diagnoses(Active) Finger laceration Date: 06/03/2018 ; Diagnosis Type: Reason For Visit ; Confirmation: Complaint of ; Clinical Dx: Finger laceration ; Classification: Medical ; Clinical Service: Emergency medicine ; Code: PNED ; Probability: 0 ; Diagnosis Code: [id number] ED Height and Weight Height Source : Stated Height Entry Format : Clover Height, Feet : 6 ft(Converted to: 183 cm, 72 Inch) Height, Inches : 4 Inch(Converted to: 0 ft 4 Inch, 10.16 cm) Clinical Height : 193.04 cm Weight Source, ED : Standing scale Weight Entry Format : Clover Weight, Pounds : 265 lb Clinical Dosing Weight : 120.45 kg Body Surface Area (BSA) : 2.5 m2 Body Mass Index : 32.3 kg/m2 (HI) [place] Body Weight (IBW) : 85.74 kg KANU [...]
[2025-03-20 07:40] LABS: Hematocrit 37.9 % (42.0-52.0); Hemoglobin 13.3 g/dL (14.1-18.0); Immature Granulocytes % 1.6 %; Mean Corpuscular HGB Conc 35.1 g/dL (31.8-35.4); Mean Corpuscular Hemoglobin 33.8 pg (27.0-31.2); Mean Corpuscular Volume 96.2 fl (80-94); Nucleated Red Blood Cells % 0.4 %; Platelet Count 159 K/mm3 (142-424); Red Blood Count 3.94 M/mm3 (4.60-6.20); Red Cell Distribution Width-SD 51.8 fL; White Blood Count 8.5 K/mm3 (4.8-10.8)
[2025-03-20 09:14] LABS: Alanine Aminotransferase 19 U/L (12-78); Albumin Level 4.4 g/dl (3.5-5.0); Alkaline Phosphatase 71 U/L (38-126); Anion Gap 13.2 mEq/L (5-15); Aspartate Amino Transferase 21 U/L (17-59); Bilirubin,Direct 0.2 mg/dl (0.0-0.4); Bilirubin,Indirect 0.4 mg/dL (0.0-0.9); Bilirubin,Total 0.6 mg/dl (0.2-1.3); Bilirubin,Unconjugated 0.4 mg/dL (0.0-1.1); Blood Urea Nitrogen 14 mg/dl (9-20); Calcium 9.7 mg/dl (8.4-10.2); Carbon Dioxide 25 mmol/L (22.0-30.0); Chloride 103 mmol/L (98-107); Creatinine,Serum 1.20 mg/dl (0.66-1.25); Estimated Glomerular Filt Rate 67 ml/min (>60); GFR (African American) 81 ML/MIN (>60); Glucose 153 mg/dl (74-100); Magnesium 1.2 mg/dl (1.6-2.3); Phosphorous 3.8 mg/dl (2.5-4.5); Potassium 4.2 mmoL/L (3.5-5.1); Sodium 137 mmol/L (136-145); Total Protein,Serum 7.1 g/dl (6.3-8.2)
[2025-03-20 12:43] LABS: Bilirubin,Urine Negative (Negative); Color,Urine YELLOW (Yellow); Glucose,Urine (UA) Negative (Negative); Ketones,Urine Negative (Negative); Leukocyte Esterase,Urine Negative (Negative); PH,Urine 6.0 (5.0-8.5); Protein,Urine TRACE (Negative); Specific Gravity, Urine 1.015 (1.005-1.030); Urobilinogen,Urine 0.2 EU/dl (0.2)
[2025-03-20 13:49] LABS: Squamous Epithelial Cell,Urine Occasional #/hpf (0-5); WBC,Urine Occasional #/hpf (0-3)
[2025-03-21 13:11] LABS: BKV DNA, Quant PCR, Plasma Negative (Negative)
[2025-03-24 00:08] LABS: Tacrolimus (FK506), Blood 14.0 ng/mL (5.0-20.0)
== END 2025-03-20 23:59 | disposition home or self-care (01) ==
LOC: LAB 07:10
PROVIDERS: PCP Nurse Practitioner Family; Visit Provider Surgery
DX: D84.9 Immunodeficiency, unspecified (principal); F10.90 Alcohol use, unspecified, uncomplicated; Z94.4 Liver transplant status; Z94.0 Kidney transplant status; Z79.60 Long term (current) use of unspecified immunomodulators and immunosuppressants
CPT/HCPCS: 36415; 80069; 80076; 80197; 80321; 81001; 82570; 83735; 84156; 85025; 87086

== ENCOUNTER 2025-03-27 10:48 | Outpatient (CLI) | payer OTHER, SELFPAY ==
[2025-03-27 10:54] LABS: Microscopic, Urine URINE MICROSCOPIC (MICROSCOPIC)
[2025-03-27 11:08] LABS: Bilirubin,Urine Negative (Negative); Color,Urine YELLOW (Yellow); Glucose,Urine (UA) Negative (Negative); Ketones,Urine Negative (Negative); Leukocyte Esterase,Urine Negative (Negative); PH,Urine 7.0 (5.0-8.5); Protein,Urine Negative (Negative); Specific Gravity, Urine 1.010 (1.005-1.030); Urobilinogen,Urine 0.2 EU/dl (0.2)
[2025-03-27 11:09] LABS: Hematocrit 41.6 % (42.0-52.0); Hemoglobin 14.4 g/dL (14.1-18.0); Immature Granulocytes % 1.1 %; Mean Corpuscular HGB Conc 34.6 g/dL (31.8-35.4); Mean Corpuscular Hemoglobin 33.6 pg (27.0-31.2); Mean Corpuscular Volume 97.0 fl (80-94); Nucleated Red Blood Cells % 0.2 %; Platelet Count 162 K/mm3 (142-424); Red Blood Count 4.29 M/mm3 (4.60-6.20); Red Cell Distribution Width-SD 52.4 fL; White Blood Count 9.0 K/mm3 (4.8-10.8)
[2025-03-27 11:17] LABS: RBC,Urine Occasional #/hpf (0-3); Squamous Epithelial Cell,Urine Occasional #/hpf (0-5); WBC,Urine Occasional #/hpf (0-3)
[2025-03-27 11:39] LABS: Alanine Aminotransferase 25 U/L (12-78); Albumin Level 4.7 g/dl (3.5-5.0); Alkaline Phosphatase 74 U/L (38-126); Anion Gap 15.8 mEq/L (5-15); Aspartate Amino Transferase 33 U/L (17-59); Bilirubin,Direct 0.2 mg/dl (0.0-0.4); Bilirubin,Indirect 0.7 mg/dL (0.0-0.9); Bilirubin,Total 0.9 mg/dl (0.2-1.3); Bilirubin,Unconjugated 0.8 mg/dL (0.0-1.1); Blood Urea Nitrogen 12 mg/dl (9-20); Calcium 9.7 mg/dl (8.4-10.2); Carbon Dioxide 25 mmol/L (22.0-30.0); Chloride 99 mmol/L (98-107); Creatinine,Serum 1.20 mg/dl (0.66-1.25); Estimated Glomerular Filt Rate 67 ml/min (>60); GFR (African American) 81 ML/MIN (>60); Glucose 110 mg/dl (74-100); Magnesium 1.1 mg/dl (1.6-2.3); Phosphorous 3.8 mg/dl (2.5-4.5); Potassium 3.8 mmoL/L (3.5-5.1); Sodium 136 mmol/L (136-145); Total Protein,Serum 7.1 g/dl (6.3-8.2)
[2025-03-31 08:00] LABS: Tacrolimus (FK506), Blood 18.2 ng/mL (5.0-20.0)
== END 2025-03-27 23:59 | disposition home or self-care (01) ==
LOC: LAB 10:49
PROVIDERS: PCP Nurse Practitioner Family; Visit Provider Surgery
DX: D84.9 Immunodeficiency, unspecified (principal); F10.90 Alcohol use, unspecified, uncomplicated; Z94.0 Kidney transplant status; Z94.4 Liver transplant status; Z79.60 Long term (current) use of unspecified immunomodulators and immunosuppressants
CPT/HCPCS: 36415; 80069; 80076; 80197; 80321; 81001; 82570; 83735; 84156; 85025; 87086

== ENCOUNTER 2025-04-03 11:59 | Outpatient (CLI) | payer OTHER, SELFPAY ==
--- OUTSIDE RECORDS SUMMARY | 2024-09-02 13:40 | XMS_ITS | Encounter Summary ---
Author Organization [facility] Address [address] [place] [address] Care Team Providers Care Preschool Education Director Name Role Phone Enedina Mcguire NP Primary Care Provider + [phone] Maureen Pantoja RN Unavailable Unavail able Source Comments This information has been disclosed [...] release of HIV test results or diagnoses. [id number] Reason for Visit * Reason Comments Follow-up Bloating in PT stoma ch * Hospital Discharge Follow-Up (Routine) - Closed Specialty Diagnoses / Procedures Referred By Shane t Referred To Contact Hepatology Feliciano Freeman MD [address] [place] [address] Phone: tel: fax: Referral ID Status Reason Start Date Expiration Date Visits Re quested Visits Authorized [id number] Closed 07/29/2024 01/25/2025 1 1 Encounter Details Date Type Department Care Team (Latest Contact Info) Description 09/02/2024 2:40 PM EDT Office Visit [facility] [address] [facility] [address] [place] [id number] Gerri Peterson MD [address] [place] [address] Cirrhosis of liver with ascites, unspecified hepatic cirrhosis type (CMS-HCC) (Primary Dx); Alcoholic cirrhosis of liver without ascites (CMS-HCC) Social History Tobacco Use Types Packs/Day Years Used Date Smoking Tobacco: Former Cigarettes Smokeless Tobacco: Current Alcohol Use Standard Drinks/Week Comments Yes 0 (1 standard drink = 0.6 oz pure alcohol) History of alcohol abuse, reports no use in 3 week- typically endorses use as 4 glasses of wine a days [facility] Utilities Answer Date Recorded In the past 12 months has th e [facility], gas, oil, or water [place] threatened to shut off services in your home? No 01/28/2025 AUDIT-C Answer Date Recorded Q1: How often do you have a drink containing alc ohol? 2-3 times a week 01/28/2025 Q2: How many drinks containi ng alcohol do you have on a typical day when you are drinking? 1 or 2 01/28/2025 Q3: How often do you have si x or more drinks on one occasion? Weekly 01/28/2025 PHQ-2 Answer Date Recorded PHQ-2 Total Score 0 12/10/2024 Hunger Vital Sign Answer Date Recorded Within the past 12 months, y ou worried that your food would run out before you got the money to buy more. Never true 01/29/20 25 Within the past 12 months, t he food you bought just didn't last and you didn't have money to get more. Never true 01/28/2025 PRAPARE - Transportation Answer Date Re corded In the past 12 months, has l ack of transportation kept you from medical appointments or from getting medications? No 01/12 In the past 12 months, has l ack of transportation kept you from meetings, work, or from getting things needed for daily living? No 01/28/2025 Housing Stability Vital Sign Answer Bob e Recorded In the last 12 months, was t here a time when you were not able to pay the mortgage or rent on time? No 01/28/2025 In the past 12 months, how m any times have you moved where you were living? 0 01/28/2025 At any time in the past 12 m [facility], were you homeless or living in a alf (including now)? No 01/28/2025 Yearly Questionnaire Answer Date Record ed Do you need any assistance w ith obtaining housing, meals, medication, transportation or medical equipment? No 09/02 Assistance needed for: Not on file 5 Yearly Questionnaire Answer Date Record ed Do you need any assistance w ith obtaining housing, meals, medication, transportation or medical equipment? No 09/02 Assistance needed for: Not on file 5 Yearly Questionnaire Answer Date Record ed Do you need any assistance w ith obtaining housing, meals, medication, transportation or medical equipment? No 09/02 Assistance needed for: Not on file Sex and Gender Information Value Date Recorded Sex Assigned at Male 10/25/2024 8:50 PM EDT Legal Sex Male 11:16 AM EDT Gender Identity Male 10/25/2024 8:50 PM EDT Sexual Orientation Not on file documented as of this encounter Last Filed Vital Signs Vital Sign Reading Time Taken Comments Blood Pressure 103/60 09/02/2024 2:23 PM EDT Pulse 95 09/02/2024 2:23 PM EDT Temperature - - Respiratory Rate - - Oxygen Saturation 100% 09/02/2024 2:23 PM EDT Inhaled Oxygen Concentration 100% 09/02/2024 2 :23 PM EDT Weight 117 kg (258 lb) 09/02/2024 2:23 PM EDT Height 193 cm (6' 4 ) 09/02/2024 2:23 PM EDT Body Mass Index 31.4 09/02/2024 2:23 PM EDT documented in this encounter Functional Status * Peripheral Vascular Question Answer Date of Assessment Author Compression boots No 11/01/2024 8:00 PM EDT Yvonne Gale RN Peripheral Vascular (WDL) WDL 01/30/2025 9:45 AM EDT Elba Vargas, ЮЛИЯ * Question Answer Date of Assessment Author Anti-Embolism Devices Bilateral;Sequenti al compression devices, below knee 10/28/2024 4:00 PM EDT Elaine Carrillo RN Anti-Embolism Intervention On 11/02/2024 12:01 PM EDT Paulette Flannery, ЮЛИЯ * AUDIT-C Score Answer Date of Assessment Author 6 01/28/2025 12:00 AM Marixa Dowd RN * Question Answer Date of Assessment Author Q1: How often do you have a drink containing alcohol? 2-3 times a week 01/28/2025 12:00 AM Marixa Dowd RN Q2: How many drinks containing alcohol do you have on a typical day when you are drinking? 1 or 2 01/28/2025 12:00 AM Ginette Dowd RN Q3: How often do you have six or more drinks on one occasion? Weekly 01/28/2025 12:00 AM Marixa Dowd RN * Question Answer Date of Assessment Author -PAC Mobility Score 24 01/30/2025 11:00 AM Elba Oliva RN Translation to [facility] 8 01/30/2025 11:00 AM Elba Oliva RN * Question Answer Date of Assessment Author Anti-Embolism Devices Bilateral;Sequenti al compression devices, below knee 10/28/2024 4:00 PM EDT Elaine Carrillo RN Anti-Embolism Intervention On 11/02/2024 12:01 PM EDT Paulette Flannery RN * PCL-5: In the past month, how much were you bothered by: Question Answer Date of Assessment Author Repeated, disturbing, and un wanted memories of the stressful experience? 2 09/29/2024 11:00 AM Lizeth Calixto Psy D Repeated, disturbing dreams of the stressful experience? 2 09/29/2024 11:00 AM Lizeth Calixto P syD Suddenly feeling or acting a s if the stressful experience were actually happening again (as if you were actually back there reliving it)? 2 09/29/2024 11:00 AM SANTOT Lizeth Rod PsyD Feeling very upset when some thing reminded you of the stressful experience? 3 09/29/2024 11:00 AM Lizeth Calixto Psy D Having strong physical react ions when something reminded you of the stressful experience (for example, heart pounding, trouble breathing, sweating)? 3 09/29/2024 11:00 AM Lizeth Calixto Psy D Avoiding memories, thoughts, or feelings related to the stressful experience? 3 09/29/2024 11:00 AM Lizeth Calixto Psy D Avoiding external reminders of the stressful experience (for example, people, places, conversations, activities, objects, or situations)? 3 09/29/2024 11:00 AM Lizeth Calixto PsyD Trouble remembering importan t parts of the stressful experience? 3 09/29/2024 11:00 AM Sara Calixto PsyD Having strong negative belie fs about yourself, other people, or the world (for example, having thoughts such as: I am bad, there is something seriously wrong with me, no one can be trusted, the world is completely dangerous)? 0 09/29/2024 11:00 AM Lizeth Calixto Psy D Blaming yourself or someone else for the stressful experience or what happened after it? 0 09/29/2024 11:00 AM Lizeth Calixto Psy D Having strong negative feeli ngs such as fear, horror, anger, guilt, or shame? 0 09/29/2024 11:00 AM Lizeth Calixto Psy D Loss of interest in activiti es that you used to enjoy? 3 09/29/2024 11:00 AM Lizeth Calixto Psy D Feeling distant or cut off f rom other people? 4 09/29/2024 11:00 AM Lizeth Calixto Psy D Trouble experiencing positiv e feelings (for example, being unable to feel happiness or have loving feelings for people close to you)? 3 09/29/2024 11:00 AM EDT R Lizeth holloway PsyD Taking too many risks or doi ng things that could cause you harm? 0 09/29/2024 11:00 AM EDT Lizeth Rod PsyD Trouble falling or staying asleep? 4 2024 11:00 AM EDT Lizeth Warren PsyD Irritable behavior, angry ou tbursts, or acting aggressively? 3 09/29/2024 11:00 AM SANTOT Lizeth Warren PsyD Having difficulty concentrating? 3 09/30/19 11:00 AM Lizeht Calixto PsyD Being superalert or watchf ul or on guard? 2 09/29/2024 11:00 AM EDT Lizeth Warren Psy D Feeling jumpy or easily startled? 2 025 11:00 AM EDT Lizeth Warren PsyD Post-Traumatic Stress Disord er Total Score 45 09/29/2024 11:00 AM EDT Lizeth Warren Psy D documented as of this encounter Patient Instructions * Patient Instructions* Gerri Peterson MD - 09/02/2024 2:40 PM EDT Labs today Paracentesis as needed. Will print paper order for this Labs every month. Will print paper order for this Abdominal ultrasound: please call to schedule this Will schedule for EGD documented in this encounter Progress Notes * Chris Orosco MD - 09/02/2024 2:40 PM EDTAddended by: CHRIS NAVARRO on: 02/06/2025 10:55 AM Modules accepted: Level of Service * Gerri Peterson MD - 09/02/2024 2:40 PM EDT [facility] NOTE Chief complaint: Post hospital discharge follow up HPI: Julien Anderson is a 39 y.o. male with EtOH cirrhosis d/b HE, also with small non- bleeding EV, recent alcohol-associated hepatitis, RCC s/p treatment and c/f congenital renal disorder, HTN, HLD, CKD whois here for post hospital discharge follow up. Patient was admitted in early 08/2024 for ACLF after presenting with generalized weakness and worsening outpatient labs( sCr, T bili and hyponatremia) .Was transferred to MICU for worseninig hypotension with pressor requirement.His admission course was also complicated by NADIYA on CKD, diagnostic paracentesis showed no evidence of SBP. His beta dominic was discontinued due to hypotension and he wasdischarged home on lactulose, rifaximin, and Zinc with plans to follow up with outpatient transplant social work. Today, he reports that, since discharge, he has had worsening ascites and had therapeutic paracentesis at [facility] with about a week prior to this encounter with about 4L of fluid removed. He reports recurrent abdominal distension with associated abdominal discomfort. He denies abdominal pain, nausea or vomiting. Says he has been abstinent from alcohol since 06/2024 and his lastPETH was negative. He had an EGD 07/29/2022 which showed grade 1 and 2 varices, no active bleeding. He has an appointment with transplant social work tomorrow. Review of Systems 12 point review of systems negative except as above. History Past Medical History: Diagnosis Date Alcoholic cirrhosis of liver (CMS-HCC) Alcoholic hepatitis Esophageal varices (CMS-HCC) Hepatorenal syndrome (CMS-HCC) Hypertension Other hyperlipidemia 07/26/2024 Renal cell carcinoma (CMS-HCC) Thrombocytopenia (CMS-HCC) Thyroid disease History reviewed. No pertinent surgical history. No family history on file. Social History[1] Allergies[2] Current Medications Current Outpatient Medications Medication Sig cholestyramine-aspartame Mix one scoop with 4-6 ounces of water and drink by mouth daily. folic acid Take 1 tablet (1 mg total) by mouth daily. lactulose Take 30 mLs (20 g total) by mouth 3 times a day as needed (goal 2-3 bowel movements a day). levothyroxine Take 1 tablet (75 mcg total) by mouth every morning before breakfast. pantoprazole Take 1 tablet (40 mg total) by mouth every morning before breakfast. potassium chloride Take 1 tablet (20 mEq total) by mouth daily. rifAXIMin Take 1 tablet (550 mg total) by mouth 2 times a day. sodium bicarbonate Take 2 tablets (1,300 mg total) by mouth 3 times a day. thiamine HCl Take 1 tablet (100 mg total) by mouth daily. traMADoL Take 1 tablet (50 mg total) by mouth every 12 hours as needed for Pain (Pain). zinc sulfate Take 1 capsule (220 mg total) by mouth daily. No current facility-administered medications for this visit. Physical Examination Blood pressure 103/60, pulse 95, height 6' 4 (1.93 m), weight (!) 258 lb (117 kg), SpO2 100%. Gen: Tired appearing but in no acute distress. HEENT: +scleral icterus. Neck: Neck is supple. CV: No JVD Lungs: On room air, no increased work of breathing Abdomen: Distended but non tender to palpation Extremities: No bilateral lower extremity edema. Skin: No bruising or rash noted. Neuro: Alert and conversive. No focal deficits. No asterixis. Labs/Imaging Lab Results Component Value Date GLUCOSE 126 (H) 08/19/2024 BUN 39 (H) 08/19/2024 CO2 15 (L) 08/19/2024 CREATININE 2.69 (H) 08/19/2024 K 3.2 (L) 08/19/2024 NA 134 08/19/2024 CL 110 08/19/2024 CALCIUM 9.0 08/19/2024 Lab Results Component Value Date ALKPHOS 86 08/19/2024 ALT 32 08/19/2024 AST 65 (H) 08/19/2024 BILITOT 34.4 (H) 08/19/2024 ALBUMIN 3.2 (L) 08/19/2024 ALBUMIN 3.0 (L) 08/19/2024 BILIDIRECT 22.90 (H) 08/19/2024 PROT 4.3 (L) 08/19/2024 Lab Results Component Value Date MG 1.9 08/19/2024 Lab Results Component Value Date PHOS 2.8 08/19/2024 Lab Results Component Value Date WBC 6.2 08/19/2024 HGB 9.8 (L) 08/19/2024 HCT 27.3 (L) 08/19/2024 MCV 98.4 08/19/2024 PLT 33 (L) 08/19/2024 Lab Results Component Value Date INR 2.0 (H) 08/19/2024 MELD 3.0: 39 at 08/19/2024 2:59 AM Calculated from: Serum Creatinine: 2.69 mg/dL at 08/19/2024 2:59 AM Serum Sodium: 134 mmol/L at 08/19/2024 2:59 AM Total Bilirubin: 34.4 mg/dL at 08/19/2024 2:59 AM Serum Albumin: 3 g/dL at 08/19/2024 2:59 AM INR(ratio): 2 at 08/19/2024 2:59 AM Age at listing (hypothetical): 39 years Sex: Male at 08/19/2024 2:59 AM Assessment/Plan Julien Anderson is a 39 y.o. male with history of ETOH cirrhosis d/b ascites and HE who is here for post hospital discharge follow up. #Ascites: will obtain abdominal ultrasound with dopplers given acute worsening of his ascites. LVP as needed. Patient will prefer to have LVP done at [facility]. Will print out paper order for LVP. Will not start diuretics given NADIYA and hypotension #HE: AOX4, no asterixis. Continue Rifaximin, Zinc and lactulose. Titrate lactulose to 3-4 bowel movements daily #EV: EGD in 07/2022 showed small esophageal varices. Patient will not tolerate beta dominic due to hypotension. Will schedule for EGD for surveillance #HCC: Abdominal ultrasound abd AFP q6 months # Transplant: Follow up with transplant social work up as scheduled #Obtain MELD labs and PETH RTC in 3 months Patient seen and discussed with the attending physician, Dr Shaunna PETERSON MD PGY-5 09/02/2024, 2:34 PM [1] Social History Tobacco Use Smoking status: [...] Duloxetine Other (See Comments) Became Manic * Chris Orosco MD - 09/02/2024 2:40 PM EDT Attending Physician's Note: I saw [...] non bleeding esophageal varices, Acute alcohol hepatitis (06/2024) s/p prednisolone, and CKD for hospital-discharge follow up for acute on chronic liver failure. PE Vitals: 09/02/24 1423 BP: 103/60 BP Location: Left upper arm Patient Position: Sitting BP Cuff Size: Large Pulse: 95 SpO2: 100% Weight: (!) 258 lb (117 kg) Height: 6' 4 (1.93 m) General: awake, alert, no apparent distress HENT: + sclera icteric, moist mucous membranes Neck: supple Pulmonary: good air exchange, bilateral breath sounds Cardiac: S1 and S2 heard Abdomen:soft, non-tender, + distended, normoactive bowel sounds, + fluid wave, no guarding or rebound, no hepatomegaly, no splenomegaly Neuro: awake, alert, oriented x 3, no confusion, no asterixis Extremities: no pedal edema Skin: + jaundice MELD 3.0: 6 at 12/04/2024 7:47 AM MELD-Na: 6 at 12/04/2024 7:47 AM Calculated from: Serum Creatinine: 0.9 mg/dL (Using min of 1 mg/dL) at 12/04/2024 7:47 AM Serum Sodium: 140 mmol/L (Using max of 137 mmol/L) at 12/04/2024 7:47 AM Total Bilirubin: 0.7 mg/dL (Using min of 1 mg/dL) at 12/04/2024 7:47 AM Serum Albumin: 4.1 g/dL (Using max of 3.5 g/dL) at 12/04/2024 7:47 AM INR(ratio): 0.99 (Using min of 1) at 12/04/2024 7:47 AM Age at listing (hypothetical): 39 years Sex: Male at 12/04/2024 7:47 AM A&P 39 y.o. year old male with complex medical issues as detailed in HPI Decompensated cirrhosis: secondary to alcohol. Sober since 06/2024 - CBC, CMP, INR monthly - periodic PEth monitoring - continue chemical dependency treatment Ascites - large volume s/p paracentesis. Diuretic intolerant due to kidney dysfunction, hypotension. Paracentesis as needed. Varices - non bleeding esophageal varices. Schedule surveillance EGD. Hepatic encephalopathy - grade 3 on 08/2024 hospitalization. Continue lactulose and rifaximin HCC screening - up to date. Repeat ultrasound abdomen and serum AFP every 6 months Transplant - pre pre liver transplant assessment I personally reviewed 08/13/24 ultrasound abdomen complete and this is my interpretation: no suspicious liver lesion. I discussed risks vs. benefits of elective EGD for surveillance of non-bleeding esophageal varices. Chris Orosco MD, MPH Transplant hepatology Pager: [phone] documented in this encounter Plan of Treatment Not on file documented as of this encounter Results * (ABNORMAL) CBC (09/02/2024 5:00 PM EDT) WBC 10.4 3.8 - 10.8 10E3/uL 09/02/2024 7:42 PM EDT [facility] RBC 3.13(L) 4.20 - 5.80 10E6/uL 09/02/2024 7:42 PM EDT [facility] Hemoglobin 11.1(L) 13.2 - 17.1 g/dL 09/02/2024 7:42 PM EDT [facility] Hematocrit 30.7(L) 38.5 - 50.0 % 09/02/2024 7:42 PM EDT [facility] MCV 97.9 80.0 - 100.0 fL 09/02/2024 7:42 PM EDT [facility] MCH 35.3(H) 27.0 - 33.0 pg 09/02/2024 7:42 PM EDT [facility] MCHC 36.1(H) 32.0 - 36.0 g/dL 09/02/2024 7:42 PM EDT [facility] RDW 22.7(H) 11.0 - 15.0 % 09/02/2024 7:42 PM EDT [facility] Platelets 73(L) 140 - 400 10E3/uL 09/02/2024 7:42 PM EDT [facility] MPV 9.4 7.5 - 11.5 fL 09/02/2024 7:42 PM EDT [facility] Whole Blood 09/02/2024 5:00 PM EDT 09/02/2024 7:34 PM EDT us Gerri Peterson MD LAB BLOOD ORDERABLES Final Resu lt [facility] [id number] documented in this encounter Visit Diagnoses Diagnosis Cirrhosis of liver with ascites, unspecified hepatic cirrhosis type (CMS-HCC)- Primary Alcoholic cirrhosis of liver without ascites (CMS-HCC) documented in this encounter Additional Health Concerns Infection Onset Date Last Indicated Resolved Time Rule Out C. difficile 09/08/2024 09/08/20242024 10:56 PM EDT Rule Out C. difficile 09/09/2024 09/09/20242024 1:20 PM EDT C. difficile 09/09/2024 09/09/2024 10/27/2024 8:30 AM EDT Rule Out C. difficile 10/05/2024 10/05/20242024 10:04 AM EDT Rule Out COVID-19 10/06/2024 10/06/2024 10/06/2024 11:38 PM EDT 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, VRE- urine 10/31/2024 11/04/2024 01/28/2025 7:59 AM E DT Rule Out COVID-19 01/27/2025 01/27/2025 01/28/2025 12:20 AM EDT Rule Out C. difficile 01/28/2025 01/28/20252024 11:22 PM EDT C. difficile 01/28/2025 01/28/2025 documented as of this encounter Care Teams Preschool Education Director Relationship Specialty Start Date End Date Enedina Mcguire NP [address] [place] [address] PCP - General Internal Medicine 10/05/24 Maureen Pantoja, RN Txp Post Coordinator Transplant Hepatology 10/28/24 documented as of this encounter
--- OUTSIDE RECORDS SUMMARY | 2025-02-12 09:50 | XMS_ITS | Encounter Summary ---
Author Organization [facility] Address [address] [place] [id number] Care Team Providers Care Director Of Construction Name Role Phone Enedina Mcguire NP Primary Care Provider + [phone] Maureen Pantoja RN Unavailable Unavail able Source [...] release of HIV test results or diagnoses. [id number] Reason for Referral * Diagnostic Lab (Routine) - New Request Specialty Diagnoses / Procedures Referred By Shane hernadez Referred To Contact Diagnoses Liver transplant recipient (CMS-HCC) Kidney transplant recipient Immunosuppression ([facility]) Viral disease exposure Procedures BK Virus Quantitative by PCR, Blood [facility] Liver Transplant at [address] [address] Phone: tel: fax: Referral ID Status Reason Start Date Expiration Date V isits Requested Visits Authorized [id number] New Request 02/12/2025 08/11/2025 1 1 * Diagnostic Lab (Routine) - New Request Specialty Diagnoses / Procedures Referred By Contac t Referred To Contact Diagnoses Liver transplant recipient ([facility]) Kidney transplant recipient Immunosuppression ([facility]) Viral disease exposure Procedures BK Virus Quantitative by PCR, Blood [facility] Liver Transplant at [address] [address] Phone: tel: fax: Referral ID Status Reason Start Date Expiration Date V isits Requested Visits Authorized [id number] New Request 02/12/2025 08/11/2025 1 1 * Diagnostic Lab (Routine) - New Request Specialty Diagnoses / Procedures Referred By Contac t Referred To Contact Diagnoses Liver transplant recipient (CMS-HCC) Kidney transplant recipient Immunosuppression (CMS-HCC) Viral disease exposure Procedures BK Virus Quantitative by PCR, Blood [facility] Liver Transplant at [address] [address] Phone: tel: fax: Referral ID Status Reason Start Date Expiration Date V isits Requested Visits Authorized [id number] New Request 02/12/2025 08/11/2025 1 1 Reason for Visit * Reason Comments Liver Transplant Follow-up Encounter Details Date Type Department Care Team (Late st Contact Info) Description 02/12/2025 10:50 AM EDT Office Visit [facility] Liver Transplant at [address] [address] Chris Orosco MD [address] [place] [phone] Liver transplant recipient (CMS-HCC) (Primary Dx); History of systemic steroid therapy; Kidney transplant recipient; Immunosuppressive management encounter following liver transplant (CMS-HCC); Encounter for monitoring tacrolimus therapy; Vitamin D deficiency; Encounter for therapeutic drug monitoring; S/P liver transplant (CMS-HCC); Hypomagnesemia; Hypertension, unspecified type; Gastroesophageal reflux disease, unspecified whether esophagitis present; Alcohol use disorder; Immunosuppression ([facility]); Viral disease exposure Social History Tobacco Use Types Packs/Day Years Used Date Smoking Tobacco: Former Cigarettes Smokeless Tobacco: Current Tobacco Cessation:Ready to Q uit: Not Asked; Counseling Given: No Alcohol Use Standard Drinks/Week Comments Yes 0 (1 standard drink = 0.6 oz pure alcohol) History of alcohol abuse, reports no use in 3 week- typically endorses use as 4 glasses of wine a days [facility] [employer] Answer Date Recorded In the past 12 months has th e [employer], oil, or water [employer] threatened to shut off services in your [...] Sign Reading Time Taken Comments Blood Pressure 137/96 02/12/2025 10:56 AM EDT Pulse 102 02/12/2025 10:56 AM EDT Temperature 36.4 C (97.6 F) 02/12/2025 10:56 AM EDT Respiratory Rate 16 02/12/2025 10:56 AM EDT Oxygen Saturation 100% 02/12/2025 10:56 AM EDT Inhaled Oxygen Concentration 100% 02/12/2025 1 0:56 AM EDT Weight 107.5 kg (237 lb) 02/12/2025 10:56 AM EDT Height 193 cm (6' 4 ) 02/12/2025 10:56 AM EDT Body Mass Index 28.85 02/12/2025 10:56 AM EDT documented in this encounter Patient Instructions * Patient Instructions* Chris Orosco MD - 02/12/2025 10:50 AM EDT Continue current immunosuppression Okay to resume testosterone replacement from liver standpoint Continue naltrexone 50 mg once daily Increased gabapentin to 300 mg three times daily to help curb alcohol cravings Pain medications as needed Resume alcohol counseling Follow up with psychiatry Neck injection as scheduled Weekly labs Return to clinic in 4 - 8 weeks documented in this encounter Progress Notes * Chris Orosco MD - 02/12/2025 10:50 AM EDT Transplant Hepatology Follow Up HPI: This is a follow up visit for Julien Anderson who is a 39 y.o. year old male s/p SLK on 10/26/24 and 10/27/24 for cirrhosis secondary to alcohol, NADIYA on CKD from H[facility]. Pertinent PMH: Alcohol abuse, Hyperlipidemia, Hypothyroid, Renal cell carcinoma, and Hypertension. Post operative course uncomplicated. 44 DCD NRP, agonal time 16 min, lactate 9-> 5.6, KDPI 20%. CMV status:D-/R+ EBV status: D+/R+ Toxo status:D-/R- Pain protocol: B Donor HCV Serologies: Anti-HCV Negative, HCV KIANA Negative Donor HBV Serologies: HBcAb Negative, HBV KIANA Negative Immunosuppression: Standard 10/26/2024 Surgical Pathology FINAL DIAGNOSIS: A. 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 - Negative for neoplasm. - Increased hepatocellular iron deposition (3+; Modified Scheuer). Gall bladder: -Intramucosal and submucosal vascular congestion and hemorrhage. - Negative for dysplasia or malignancy. 10/27/2024 Surgical Pathology FINAL DIAGNOSIS: A. Kidney, left, biopsy: - [...] fibrosis on trichrome. - Patchy foamy degeneration. Current immunosuppression: tacrolimus 5 mg in AM and 6 mg in PM, prednisone 10 mg daily, and Cellcept 500 mg twice daily (holding Cellcept due to positive CDI on 01/27/25) Interval history 02/12/2025 Hospitalized 01/27 - 01/30/2025 for diarrhea, neck pain and headaches. Infectious work-up initiated with ID consult. Enteric pathogen panel was negative. C diff (+). VRP negative. BC/UC NGTD. ID consulted. Plan for x 10 day course of dificid. Diarrhea subsided and patient was tolerating PO solids andliquids. No fevers during inpatient stay. Admitted to continue alcohol use at home. Peth was 446. Patient previously on naltrexone but stopped due to opioid use with neck pain. Outpatient appointmentfor neck injections. Patient reported wanting to start back on the naltrexone then if pain is controlled. Will follow up outpatient in liver clinic. Held MMF until cleared by clinic. Prednisone 10mg d aily upon DC. Tacro 5/6mg split daily dosing. Pt completed fidaxomicin for CDI Pt getting neck injection next week for pain Pt reported that GI symptoms improving off Cellcept Wt Readings from Last 3 Encounters: 02/12/25 (!) 237 lb (107.5 kg) 01/27/25 (!) 223 lb 3.2 oz (101.2 kg) 01/06/25 (!) 223 lb (101.2 kg) 02/10/2025 labs reviewed: normal hepatic panel, normal renal panel and stable CBC ROS: Gen: no fatigue, no malaise, no fever Neuro: no headache, no focal weakness, no dysarthria HEENT: no oral ulcers, no red eye, no eye pain Pulm: no dyspnea, no wheezing CV: no chest pain, no palpitations, no lightheadedness GI: no abdominal pain, no constipation, no diarrhea, no blood in stool, no dysphagia Renal/: no dysuria, no hematuria, no frequency Skin: no rash, no jaundice Heme: no easy bruising, no petechiae, no ecchymosis Rheum: no joint pain, no joint swelling Past Medical History: Past Medical History: Diagnosis Date Alcoholic cirrhosis of liver (CMS-HCC) Esophageal varices (CMS-HCC) Hepatorenal syndrome (CMS-HCC) Hypertension Other hyperlipidemia 07/26/2024 Renal cell carcinoma (CMS-HCC) Thrombocytopenia (CMS-HCC) Thyroid disease Allergies: Allergies Allergen Reactions Adhesive Itching and Rash Tegaderm adhesive on Ivs, pt states its tolerable Duloxetine Other (See Comments) Became Manic Medications: Current Outpatient Medications Medication Sig acetaminophen Take 3 tablets (975 mg total) by mouth every 8 hours as needed cyclobenzaprine Take 1 tablet (5 mg total) by mouth 3 times a day. ergocalciferol Take 1 capsule (50,000 Units total) by mouth once a week. famotidine Take 1 tablet (20 mg total) by mouth 2 times a day. FLUoxetine Take 1 capsule (20 mg total) by mouth daily. gabapentin Take 1 capsule (300 mg total) by mouth 3 times a day. Work on decreasing to one capsule daily. Indications: Neuropathic Pain, alcoholism levothyroxine Take 1 tablet (75 mcg total) by mouth every morning before breakfast. loratadine Take 1 tablet (10 mg total) by mouth daily as needed for Allergies (itching). magnesium chloride Take 2 tablets (143 mg total) by mouth 3 times a day. Indications: hypomagnesemia methocarbamoL Take 2 tablets (1,000 mg total) by mouth 3 times a day. naltrexone Take 1 tablet (50 mg total) by mouth daily. NIFEdipine Take 1 tablet by mouth once daily predniSONE Take 2 tablets (10 mg total) by mouth daily. tacrolimus Take 5 capsules (5 mg total) by mouth every morning AND 6 capsules (6 mg total) every evening. Use as directed. Indications: Prevention of Kidney Transplant Rejection, Prevention of Liver Transplant Rejection. [Paused] mycophenolate Take 2 capsules (500 mg total) by mouth 2 times a day. No current facility-administered medications for this visit. Physical Examination: Vitals: 02/12/25 1056 BP: (!) 137/96 BP Location: Right upper arm Patient Position: Sitting BP Cuff Size: Regular Pulse: 102 Resp: 16 Temp: 97.6 ??F (36.4 ??C) TempSrc: Oral SpO2: 100% Weight: (!) 237 lb (107.5 kg) Height: 6' 4 (1.93 m) General: awake, alert, no apparent distress HENT: sclera anicteric, moist mucous membranes Neck: supple Pulmonary: good air exchange, bilateral breath sounds Cardiac: S1 and S2 heard Abdomen:soft, non-tender, non-distended stomach, normoactive bowel sounds, no guarding or rebound, no hepatomegaly, no splenomegaly; healed surgical incision Neuro: awake, alert, oriented x 3, no confusion Extremities: no pedal edema Skin: no rash, no jaundice Labs: Lab name 12/23/24 0953 12/31/24 0941 02/10/25 0933 HEMOGLOBIN 11.3* < > 13.1* HEMATOCRIT 33.3* < > 38.6* MEAN CORPUSCULAR VOLUME 93.5 < > 94.8 PLATELETS 133 < > 169 SODIUM 138 < > 141 POTASSIUM 4.2 < > 4.1 CHLORIDE 105 < > 102 CO2 27* < > 26* BUN 19 < > 15 CREATININE 0.80 < > 0.90 GLUCOSE 88 < > 101 PHOSPHORUS 5.2* < > 4.8 ALBUMIN 4.4 < > 4.7 ALBUMINKID -- < > -- CALCIUM 9.2 < > 9.4 AST 20 < > 25 ALT 14 < > 16 BILIRUBIN TOTAL 0.5 < > 0.7 ALK PHOS 73 < > 74 INR 0.94 -- -- < > = values in this interval not displayed. Lab name 01/09/25 1223 01/14/25 1053 01/20/25 1203 02/03/25 0939 TACROLIMUS BLOOD 20.7* 9.6 11.3 7.0 I personally reviewed 10/31/2024 CT abdomen and this is my interpretation: normal appearance of transplanted liver Assessment and Plan: This is a follow up visit for Julien Anderson who is a 39 year old man s/p SLK on 10/26/24 and 10/27/24 for cirrhosis secondary to alcohol, NADIYA on CKD from [facility]. Pertinent PMH: Alcohol abuse, Hyperlipidemia, Renal cell carcinoma, and Hypertension. Liver graft function: stable with normal liver tests on 02/10/25. History of post-LT alcohol relapsein 01/2025. - resume naltrexone 50 mg daily - resume alcohol counseling Kidney graft function: stable with normal renal panel on 02/10/25. - maintain hydration Immune suppression: standard; most recent tacrolimus level was 7.0 on 02/03/25. - continue tacrolimus 5 mg in AM and 6 mg in PM - holding Cellcept 500 mg twice daily since 01/2025 due to CDI - continue prednisone 10 mg daily HCC surveillance: Patient is categorized as low risk for HCC recurrence. HCV/HBV : donor acute risk, KIANA negative. ID prophylaxis/surveillance: Completed valcyte - 01/26/25 will need 6 months PJP proph on Bactrim SSdaily until 01/26/25. Fluconazole - 1 month- completed Hypertension: on nifedipime 30 daily. Psychosocial: Patient with history of alcohol abuse, with new issues of alcohol use post transplant. Continue serial Peths and counselling. Patient to take naltrexone 50 mg oral daily. Follow up with transplant social work Pain: pervious high narcotic requirement. Discharged on 2 mg dilaudid q6h. Off opioids. Taking tylenol PRN, continue with gabapentin due to history of chronic neck pain, change robaxin to twice dailyPRN History of vitamin D deficiency: low vitamin D level at 7.1 on 10/08/24. No DEXA available. - continue high dose weekly vitamin D supplement - schedule DEXA in 2024 Labs: CBC with diff, renal panel, hepatic panel, tacrolimus trough every weekly. Lipid panel, HgbA1C and Vit D level to be drawn at POD#90, HgbA1C and Vit D level to be drawn at POD#180 Hgb A1c, 25-OH vitamin D level, fasting lipid panel, and urine protein- creatinine ratio yearly. Cancer screening: Patient was counseled regarding increased risk of cancer including skin cancer and was advised to be up to date on age appropriate cancer screening (colonoscopy, prostate exam, pelvic and pap, mammography etc.) Use sun block of spf 30 or higher, wear hat and sunglasses when outside and have dermatology exam at least once a year. Health maintenance: Patient also advised to be up to date on routine immunizations (shingrix, pneumococcal and influenza, HPV in women before age 45) and routine health maintenance including bone density scan. Follow up: in 4 - 8 weeks This note was completely edited, written and [...] Chris Orosco MD, MPH Transplant hepatology Pager: [phone] * Maureen Pantoja RN - 02/12/2025 10:50 AM EDT After visit summary including patient instructions reviewed with patient. Checked with patient to see if prescription refills and/or lab orders were needed. Updated preferred pharmacy and preferred lab information in patient demographics. Care coordinated with other team members and other medical providers as needed. Patient presents with the following needs: - Updating all liver transplant standing orders to Dr. Maza (from Dr. Domínguez) - Stephie NUGENT to reviewwith outpatient lab. documented in this encounter Plan of Treatment Scheduled Orders Name Type Priority Associated Diagnoses Order Schedule DXA bone density axial skeleton Imaging Routine History of systemic steroid therapy Liver transplant recipient ([facility]) Kidney transplant recipient Immunosuppressive management encounter following liver transplant ([facility]) Encounter for monitoring tacrolimus therapy Vitamin D deficiency 1 Occurrences starting 02/12/2025 until 08/27/2025 Vitamin D 25 hydroxy Lab Routine History of systemic steroid therapy Vitamin D deficiency 1 Occurrences starting 02/12/2025 until 08/27/2025 Hepatic Function Panel Lab Routine S/P liver transplant ([facility]) Immunosuppression ([facility]) weekly for 52 Occurrences starting 02/12/2025 until 02/12/2026 Renal Function Panel w/EGFR Lab Routine S/P liver transplant ([facility]) Immunosuppression ([facility]) weekly for 52 Occurrences starting 02/12/2025 until 02/12/2026 CBC Lab Routine S/P liver transplant ([facility]) Immunosuppression ([facility]) weekly for 52 Occurrences starting 02/12/2025 until 02/12/2026 Differential Lab Routine S/P liver transplant ([facility]) Immunosuppression ([facility]) weekly for 52 Occurrences starting 02/12/2025 until 02/12/2026 Tacrolimus level Lab Routine S/P liver transplant ([facility]) Immunosuppression ([facility]) weekly for 52 Occurrences starting 02/12/2025 until 02/12/2026 Cytomegalovirus DNA, Quant, RT PCR Lab Routine S/P liver transplant ([facility]) Immunosuppression ([facility]) Viral disease exposure Expected: 02/24/2025 (Approximate), Expires: 08/27/2025 Cytomegalovirus DNA, Quant, RT PCR Lab Routine S/P liver transplant ([facility]) Immunosuppression ([facility]) Viral disease exposure Expected: 03/10/2025 (Approximate), Expires: 08/27/2025 BK Virus Quantitative by PCR, Blood Lab Routine Liver transplant recipient ([facility]) Kidney transplant recipient Immunosuppression ([facility]) Viral disease exposure Expected: 04/28/2025 (Approximate), Expires: 08/13/2026 BK Virus Quantitative by PCR, Blood Lab Routine Liver transplant recipient ([facility]) Kidney transplant recipient Immunosuppression ([facility]) Viral disease exposure Expected: 07/27/2025 (Approximate), Expires: 08/27/2025 BK Virus Quantitative by PCR, Blood Lab Routine Liver transplant recipient ([facility]) Kidney transplant recipient Immunosuppression ([facility]) Viral disease exposure Expected: 10/27/2025 (Approximate), Expires: 08/13/2026 Phosphatidylethanol Confirmation, B Lab Routine Liver transplant recipient ([facility]) Kidney transplant recipient Alcohol use disorder weekly for 52 Occurrences starting 02/12/2025 until 02/12/2026 Magnesium Lab Routine Liver transplant recipient ([facility]) Kidney transplant recipient Immunosuppressive management encounter following liver transplant ([facility]) weekly for 52 Occurrences starting 02/12/2025 until 02/12/2026 Post Kidney Transplant Urine Culture Microbiology Routine Liver transplant recipient ([facility]) Kidney transplant recipient Immunosuppressive management encounter following liver transplant ([facility]) weekly for 52 Occurrences starting 02/12/2025 until 08/13/2026 Urinalysis w/Rfl to Microscopic Lab Routine Kidney transplant recipient Immunosuppressive management encounter following liver transplant ([facility]) weekly for 52 Occurrences starting 02/12/2025 until 08/13/2026 Protein / creatinine ratio, urine Lab Routine Kidney transplant recipient Immunosuppressive management encounter following liver transplant ([facility]) weekly for 52 Occurrences starting 02/12/2025 until 08/13/2026 Microalbumin (Random UR) Lab Routine Kidney transplant recipient Immunosuppressive management encounter following liver transplant ([facility]) weekly for 52 Occurrences starting 02/12/2025 until 08/13/2026 documented as of this encounter Visit Diagnoses Diagnosis Liver transplant recipient ([facility])- Primary History of systemic steroid therapy Personal history of systemic steroid therapy Kidney transplant recipient Immunosuppressive management encounter following liver transplant ([facility]) Encounter for monitoring tacrolimus therapy Vitamin D deficiency Unspecified vitamin D deficiency Encounter for therapeutic drug monitoring S/P liver transplant ([facility]) Hypomagnesemia Disorders of magnesium metabolism Hypertension, unspecified type Gastroesophageal reflux disease, unspecified whether esophagitis present Alcohol use disorder Immunosuppression ([facility]) Viral disease exposure Contact with or exposure to other viral diseases documented in this encounter Additional Health Concerns Infection Onset Date Last Indicated Resolved Time C. difficile 01/28/2025 01/28/2025 Assessment Noted Time PHQ-9 Depression Total Score: 2 12/11/19 25 9:00 AM EDT documented as of this encounter Care Teams Director Of Construction Relationship Specialty Start Date End Date Enedina Mcguire NP [address] [place] [address] PCP - General Internal Medicine 10/05/24 Maureen Pantoja, ЮЛИЯ Txp Post Coordinator Transplant Hepatology 10/28/24 documented as of this encounter
--- OUTSIDE RECORDS SUMMARY | 2025-02-17 14:15 | XMS_ITS | Encounter Summary ---
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 Patient stated he's doing good. 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 Patient continues to follow under [facility]. Letter was sent in October regarding instructions recommendations for this patient. As stated at about 3 months posttransplant patient will be transition to one of our transplant hall manager group for continuity where they willmanage his liver perspective. liver transplant patient is assigned a posttransplant nurse coordinator Patient did request an updated refill of his once weekly vitamin D supplement Overall patient states he is feeling well. He continues to follow with [facility] about once every 2 months and does have frequent blood work completed Patient states that his liver transplant specialist did provide him clearance to restart on testosterone therapy. Will reach out to [facility] for further confirmation regarding this. Last urine [...] Surgeon: Presley Montes De Oca MD; Location: [facility]; Service: Gastroenterology; Laterality: N/A; ENDOSCOPY N/A 07/29/2022 Procedure: ESOPHAGOGASTRODUODENOSCOPY; Surgeon: Presley Montes De Oca MD; Location: [facility]; Service: Gastroenterology; Laterality: N/A; WITH APC [...] , Rfl: vitamin D (ERGOCALCIFEROL) 1.25 MG (48378 UT) capsule capsule, Take 1 capsule by [...] deficiency - vitamin D (ERGOCALCIFEROL) 1.25 MG (99962 UT) capsule capsule; Take 1 capsule by [...] will reach out to his provider at [facility] for further confirmation of clearance of [...] of this note may be an electronic rn labor and delivery/translation of spoken language to printed textusing the [employer]. documented in this encounter Plan of Treatment Upcoming Encounters Date Type Department Care Team (Late st Contact Info) Description 05/18/2025 2:30 PM EST Office Visit [facility] INTERNAL MEDICINE [address] [place] [phone] Enedina Mcguire APRN [address] [place] [phone] 05/21/2025 12:30 PM EST Office Visit [facility] PAIN MANAGEMENT [address] [address] Vazquez Christie PA-C [address] [place] [address] [place], [place] [phone] Scheduled Orders Name Type Priority Associated Diagnoses [...] as of this encounter Care Teams Director Business Development Relationship Specialty Start Date End Date Enedina Mcguire APRN [address] [place] [address] PCP - General Nurse Practitioner 10/27/24 documented as of this encounter
--- OUTSIDE RECORDS SUMMARY | 2025-02-19 06:45 | XMS_ITS | Encounter Summary ---
Author Organization [facility] Address [address] [place] [address] Care Team Providers Care Blind Escort Name Role Phone Enedina Mcguire APRN Primary Care Provider + Reason for Visit * Surgical (Routine) - Closed Specialty Diagnoses / Procedures Referred By Shane t Referred To Contact Pain Medicine Diagnoses Cervical radiculopathy Procedures External Facility Surgical/Procedural Request Tye Song MD [address] [place] [address] Phone: tel: fax: [facility] AT [address] [place] [address] Phone: tel: fax: Referral ID Status Reason Start Date Expiration Date V isits Requested Visits Authorized [id number] Closed Other 01/08/2025 04/09/2026 1 1 Encounter Details Date Type Department Care Team (Late st Contact Info) Description 02/19/2025 7:45 AM EDT Outside Facility Service [facility] PAIN MANAGEMENT [address] [address] Tye Song MD [address] [place] [address] Social History Tobacco Use Types Packs/Day Years Used Date Smoking Tobacco: Former Cigarettes 4 20 Passive Smoke Exposure: Past Smokeless Tobacco: Current Comments:MARIJUANA USE ABOUT 2X PER WEEK - reports no use 03-25-2025 Alcohol Use Standard Drinks/Week Comments Not Currently 0 (1 standard drink = 0.6 oz pure alcohol) 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 [facility] Utilities Answer Date Recorded In the past [...] Score 0 10/02/2022 [facility] - Occupational Stress Questionnaire Answer Date [...] Description 05/18/2025 2:30 PM EST Office Visit [facility] [address] [place] [address] Enedina Mcguire, POLY AREA SUPERVISOR [address] [employer], [place] [address] 05/21/2025 12:30 PM EST Office Visit [facility] PAIN [facility]EMENT 3000 [facility] 330 [place] [address] Vazquez Christie PA-C 1760 [facility] [address] [place] [address] documented as of this encounter Visit Diagnoses Not on filedocumented in this encounter Additional Health Concerns Assessment Noted Time PHQ-2 Depression Total Score: 1 12/31/19 24 3:25 PM EDT documented as of this encounter Care Teams Blind Escort Relationship Specialty Start Date End Date Enedina Mcguire APRN [address] [place] [address] PCP - General Nurse Practitioner 10/27/24 documented as of this encounter
--- OUTSIDE RECORDS SUMMARY | 2025-02-25 09:50 | XMS_ITS | Encounter Summary ---
Author Organization [address] [address] Care Team Providers Care Filler Shredder Helper Name Role Phone Enedina Mcguire NP Primary Care Provider + [phone] Maureen Pantoja RN Unavailable Unavail able Source [...] release of HIV test results or diagnoses. [id number] Reason for Referral * Physician/SAWYER (Routine) - Denied Specialty Diagnoses / Procedures Referred By Shane t Referred To Contact Pain Medicine Diagnoses Kidney transplant recipient Neck pain with history of cervical spinal surgery S/P liver transplant ([facility]-H[facility]) [facility] Kidney Transplant at [address] [address] Phone: tel: fax: Referral ID Status Reason Start Date Expiration Date Visits Re quested Visits Authorized [id number] Denied 02/25/2025 08/24/2025 1 0 Scheduling Instructions For appointments, please call [phone]. Reason for Visit * Reason Comments Kidney Transplant Follow-up Encounter Details Date Type Department Care Team ([facility] Contact Info) Description 02/25/2025 10:50 AM EDT Office Visit [facility] Kidney Transplant at [facility] [address] [facility] [address] [place] [address] Carlton Wright MD [address], [facility] [address] [place] [phone] Kidney transplant recipient (Primary Dx); Neck pain with history of cervical spinal surgery; S/P liver transplant ([facility]-HCC) Social History Tobacco Use [...] as 4 glasses of wine a days [facility] [employer] Answer Date Recorded In the past 12 months has th e [employer], [employer], or water [email or web address] threatened to shut off services in your [...] Low Risk (07/09/2024) Received from [facility] Overall Financial Resource Strain (CARDIA) Difficulty [...] No Physical Activity: Unknown (07/14/2024) Received from [facility] Exercise Vital Sign Days of Exercise per Week: Patient unable to answer Minutes of Exercise per Session: Not on file Stress: Patient Unable To Answer (07/14/2024) Received from [facility] [place] of Occupational Health - Occupational Stress Questionnaire Feeling of Stress : Patient unable to answer Social Connections: Patient Unable To Answer (07/14/2024) Received from [facility] Social Connection and Isolation Panel [...] Results Component Value Date PTH 36.0 10/25/2024 [id number] 7.1 (L) 10/08/2024 Hemoglobin A1C: Lab Results [...] documented as of this encounter Care Teams Filler Shredder Helper Relationship Specialty Start Date End Date Enedina Mcguire NP [address] [place] [address] PCP - General Internal Medicine 10/05/24 Maureen Pantoja, ЮЛИЯ Txp Post Coordinator Transplant Hepatology 10/28/24 documented as of this encounter
--- OUTSIDE RECORDS SUMMARY | 2025-03-03 12:45 | XMS_ITS | Encounter Summary ---
Author Organization [facility] Address [address] [place] [address] Care Team Providers Care Electrical Line Worker Name Role Phone Enedina Mcguire APRN Primary Care Provider + Reason for Referral * Surgical (Routine) - Closed Specialty Diagnoses / Procedures Referred By Shane hernadez Referred To Contact Diagnoses Occipital neuralgia of right side Procedures External Facility Surgical/Procedural Request Vazquez Christie PA-C [address] [place] [address] Phone: tel: fax: [facility] [address] [facility] [address] [place] [address] Phone: tel: fax: Referral ID Status Reason Start Date Expiration Date V isits Requested Visits Authorized [id number] Closed Continuity of Care 03/03/2025 06/02/2026 1 1 Reason for Visit * Reason Comments Follow-up Neck Pain Encounter Details Date Type Department Care Team (Late st Contact Info) Description 03/03/2025 1:45 PM EDT Office Visit [facility] PAIN MANAGEMENT [address] [facility] [address] [place] [address] Vazquez Christie PA-C [address] [place] [address] Occipital neuralgia of right side (Primary Dx); Cervical spondylosis without myelopathy; Cervical pain (neck); Long-term use of high-risk medication; Cervical radiculopathy; Therapeutic drug monitoring; Chronic pain syndrome Social History Tobacco Use Types Packs/Day Years Used Date Smoking Tobacco: Former Cigarettes 4 20 Passive Smoke Exposure: Past Smokeless Tobacco: Current Comments:MARIJUANA USE ABOUT 2X PER WEEK - reports no use 08-05-2024 Alcohol Use Standard Drinks/Week Comments Not Currently 0 (1 standard drink = 0.6 oz pure alcohol) 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 [facility] Utilities Answer Date Recorded In the past 12 months has [employer], gas, oil, or water [employer] threatened to shut off services in your [...] Score 0 10/02/2022 [facility] - Occupational [...] GED or equivalent No 07/09/2024 Preferred Language Solomon Islander 07/09/2024 PHQ-2 Answer Date Recorded Patient Health Questionnaire-2 Score 0 03/03/2025 Sex and Gender Information Value Date Recorded [...] - Inhaled Oxygen Concentration - - Weight 111 kg (245 lb) 03/03/2025 1:50 PM EDT Height 193 cm (6' 3.98 ) 03/03/2025 1:50 PM EDT Body Mass Index 29.83 03/03/2025 1:50 PM EDT documented in this encounter Functional Status documented as of this encounter Progress Notes * Vazquez Christie PA-C - 03/03/2025 1:45 PM EDT Referring Physician: Enedina Mcguire APRN [address] [place] [address] Primary Physician: Enedina Mcguire APRN CHIEF COMPLAINT or REASON FOR VISIT: Follow-up and Neck Pain Initial history of present illness on [...] Interval history: Patient returns to clinic today after undergoing bilateral cervical medial branch blocks. Continuesto have chronic neck pain. Was last evaluated by neurosurgery, Dr. Phong Guevara in July 2023 recommended interventional pain management. Today, he primarily complains of chronic right sided neckpain with radiation into the right occiput. This tends to be worse at night when he is lying down to sleep.. Denies any changes in his bowel or bladder, clumsiness of the hands or gait. 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 which occurred earlier this year Interventions: 08/23/2023: LEENA with 50% relief for 2 weeks, 30-40% relief for multiple months 02/19/2025: Bilateral C2/3 and C6/7 MBB with minimal relief Objective Pain Scoring: BRIEF PAIN INVENTORY: Total score: Pain Score 03/03/25 1350 PainSc: 3 PainLoc: Neck PHQ-2: PHQ-9: Opioid Risk Tool: [...] Surgeon: Presley Montes De Oca MD; Location: [facility]; Service: Gastroenterology; Laterality: N/A; ENDOSCOPY N/A 07/29/2022 Procedure: ESOPHAGOGASTRODUODENOSCOPY; Surgeon: Presley Montes De Oca MD; Location: [facility]; Service: Gastroenterology; Laterality: N/A; WITH APC LIVER TRANSPLANTATION 10/2024 NECK SURGERY 11/22/2000 C 4/5 corpectomy c3-6 ant fusion SPINAL FUSION 2000 c3-6 acdf and c4-5 corpectomy; Dr. Gardner, Dr. Mcelroy TRANSPLANTATION RENAL Right 10/2024 Family History Family History Problem Relation Name Age of Onset Stroke Mother Elle Anderson Osteoarthritis Mother Elle Anderson Cancer Mother Elle Anderson Osteoarthritis Father Richa Anderson Hypertension Father Richa Anderson Arthritis Father Richa Anderson Hyperlipidemia Father Richa Anderson No Known Problems Brother Alcohol abuse Maternal Grandfather Elton Pascal Stroke Maternal Grandmother Sudha Tenorio Liver cancer Neg Hx Liver disease Neg [...] Yes Partners: Female Medications: Current Outpatient Medications: cyclobenzaprine (FLEXERIL) 5 MG tablet, Take 1 tablet by mouth 3 (Three) Times a Day. (Patient taking differently: Take 1 tablet by mouth 3 (Three) Times a Day As Needed.), Disp: , Rfl: famotidine (PEPCID) 20 MG tablet, Take 1 tablet by mouth 2 (Two) Times a Day., Disp: , Rfl: FLUoxetine (PROzac) 20 MG capsule, Take 1 capsule by mouth Daily., Disp: , Rfl: gabapentin (NEURONTIN) 300 MG capsule, Take 1 capsule by mouth 3 (Three) Times a Day., Disp: , Rfl: levothyroxine (SYNTHROID, LEVOTHROID) 75 MCG tablet, Take 1 tablet by mouth Daily., Disp: 30 tablet, Rfl: 0 loratadine (CLARITIN) 10 MG tablet, Take 1 tablet by mouth., Disp: , Rfl: MAGNESIUM CHLORIDE PO, Take by mouth., Disp: , Rfl: methocarbamol (ROBAXIN) 500 MG tablet, Take 1 tablet by mouth 2 (Two) Times a Day., Disp: , Rfl: mycophenolate (CELLCEPT) 250 MG capsule, Take 1 capsule by mouth 2 (Two) Times a Day., Disp: , Rfl: NIFEdipine XL (PROCARDIA XL) 30 MG 24 hr tablet, Take 1 tablet by mouth Daily., Disp: , Rfl: predniSONE (DELTASONE) 5 MG tablet, Take 1.5 tablets by mouth Daily. (Patient taking differently: Take 1 tablet by mouth Daily.), Disp: , Rfl: Syringe 25G X 5/8 3 ML misc, Use 1 each 1 (One) Time Per Week., Disp: 12 each, Rfl: 1 tacrolimus (PROGRAF) 1 MG capsule, Take by mouth. Take 5 capsules (5 mg total) by mouth every morning AND 6 capsules (6 mg total) at bedtime. Use as directed. Indications: Prevention of Kidney Transplant Rejection, Prevention of Liver Transplant Rejection. (Patient taking differently: Take by mouth. Take 6 capsules (5 mg total) by mouth every morning AND 6 capsules (6 mg total) at bedtime. Use asdirected. Indications: Prevention of Kidney Transplant Rejection, Prevention of Liver Transplant Rejection.), Disp: , Rfl: Testosterone Cypionate 200 MG/ML kit, Inject 1 mL into the appropriate muscle as directed by prescriber 1 (One) Time Per Week., Disp: 4 kit, Rfl: 0 vitamin D (ERGOCALCIFEROL) 1.25 MG (48820 UT) capsule capsule, Take 1 capsule by mouth 1 (One) TimePer Week., Disp: 12 capsule, Rfl: 1 folic acid (FOLVITE) 1 MG tablet, Take 1 tablet by mouth Daily. (Patient not taking: Reported on 03/03/2025), Disp: , Rfl: HYDROmorphone (DILAUDID) 2 MG tablet, Take 1 tablet by mouth Every 6 (Six) Hours. (Patient not taking: Reported on 03/03/2025), Disp: , Rfl: lidocaine (LIDODERM) 5 %, Place 1 patch on the skin as directed by provider Daily. (Patient not taking: Reported on 03/03/2025), Disp: , Rfl: naltrexone (DEPADE) 50 MG tablet, Take 1 tablet by mouth Daily. (Patient not taking: Reported on 03/03/2025), Disp: , Rfl: topiramate (TOPAMAX) 25 MG tablet, Take by mouth. (Patient not taking: Reported on 03/03/2025), Disp: , Rfl: valGANciclovir (VALCYTE) 450 MG tablet, Take 1 tablet by mouth Daily. (Patient not taking: Reportedon 03/03/2025), Disp: , Rfl: Physical Exam: Vitals: 03/03/25 1350 Weight: 111 kg (245 lb) Height: 193 cm (75.98 ) PainSc: 3 PainLoc: Neck General: Alert and oriented, No acute distress. HEENT: Normocephalic, atraumatic. Cardiovascular: No gross edema Respiratory: Respirations are non-labored Cervical Spine: No masses or atrophy Range of motion - Flexion normal. Extension normal. Lateral rotation normal. Palpation -TTP bilateral facets approximately C7 Spurling's - negative Occipital Tinel: Positive right Thoracic Spine: Inspection: no gross abnormality Paraspinal [...] still recovering from liver and kidney transplant. 03/03/2025: Minimal relief from C MBB. Will trial right diagnostic and therapeutic occipital nerve block with ultrasound guidance 1. Occipital neuralgia of right side 2. Cervical spondylosis without myelopathy 3. Cervical pain (neck) 4. Long-term use of high-risk medication 5. Cervical radiculopathy 6. Therapeutic drug monitoring 7. Chronic pain syndrome PLAN: 1. Medication Recommendations: - Tramadol has been discontinued secondary to positive THC on UDS -He has previously finished antibiotics for C. difficile 2. Physical Therapy: Continue HEP 3. Psychological: defer 4. Complementary and alternative (CAM) Therapies: 5. Labs/Diagnostic studies: 6. Imagin. Interventions: Schedule right occipital nerve block with ultrasound guidance. I had an in-depth discussion with the patient regarding the risk of procedure including bleeding, infection, damage tosurrounding structures, paralysis. We discussed the potential adverse effects of corticosteroid injection including flushing of the face, lipodystrophy, skin discoloration, elevated blood glucose, increased blood pressure. Risks of frequent steroid administration includes weight gain, hormonal changes, mood changes, and osteoporosis. - Patient reports he has had previous conversations with his transplant team who have cleared him for injections/procedures containing steroid 8. Referrals: None indicated 9. Records: [facility] reviewed; [facility] notes reviewed 10. Lifestyle goals: Follow-up 2 months [facility] Pain Management Vazquez Christie PA-C documented in this encounter Plan of Treatment Upcoming Encounters Date Type Department Care Team (Late st Contact Info) Description 05/18/2025 2:30 PM EST Office Visit [facility] INTERNAL MEDICINE [address] [place] [phone] Enedina Mcguire, MOTION PICTURE DIRECTOR [address] [place] [address] [phone] 05/21/2025 12:30 PM EST Office Visit [facility] PAIN MANAGEMENT [address] [address] Vazquez Christie PA-C [address] [place] [phone] Scheduled Orders Name Type Priority Associated Diagnoses Orde r Schedule External Facility Surgical/Procedural Request Procedures Routine Occipital neuralgia of right side Expected: 03/03/2025, Expires: 03/03/2026 documented as of this encounter Visit Diagnoses Diagnosis Occipital neuralgia of right side- Primary Cervical spondylosis without myelopathy Cervical pain (neck) Cervicalgia Long-term use of high-risk medication Cervical radiculopathy Brachial neuritis or radiculitis nos Therapeutic drug monitoring Encounter for therapeutic drug monitoring Chronic pain syndrome documented in this encounter Additional Health Concerns Assessment Noted Time PHQ-2 Depression Total Score: 1 12/31/19 24 3:25 PM EDT documented as of this encounter Care Teams Electrical Line Worker Relationship Specialty Start Date End Date Enedina Mcguire APRN [address] [place] [address] PCP - General Nurse Practitioner 10/27/24 documented as of this encounter
--- OUTSIDE RECORDS SUMMARY | 2025-03-19 11:30 | XMS_ITS | Encounter Summary ---
Author Organization [facility] Address [address] [place] [address] Care Team Providers Care Public Transportation Inspector Name Role Phone Enedina Mcguire APRN Primary Care Provider + Reason for Visit * Surgical (Routine) - Closed Specialty Diagnoses / Procedures Referred By Shane hernadez Referred To Contact Diagnoses Occipital neuralgia of right side Procedures External Facility Surgical/Procedural Request Vazquez Christie PA-C 1760 [facility] [address] [place] [address] Phone: tel: fax: [facility] AT [address] [place] [address] Phone: tel: fax: Referral ID Status Reason Start Date Expiration Date V isits Requested Visits Authorized [id number] Closed Continuity of Care 03/03/2025 06/02/2026 1 1 Encounter Details Date Type Department Care Team (Late st Contact Info) Description 03/19/2025 11:30 AM EST Outside Facility Service [facility]ICAL [facility] PAIN MANAGEMENT [address] [place] [phone] Tye Song MD 1760 [place] [address] Social History Tobacco Use Types Packs/Day Years Used Date Smoking Tobacco: Former Cigarettes 4 20 Passive Smoke Exposure: Past Smokeless Tobacco: Current Comments:MARIJUANA USE ABOUT 2X PER WEEK - reports no use 03-25-2025 Alcohol Use Standard Drinks/Week Comments Not Currently 0 (1 standard drink = 0.6 oz pure alcohol) 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 [facility] Utilities Answer Date Recorded In the past 12 months has th e [employer], gas, oil, or water company threatened to [...] Score 0 10/02/2022 [facility] - Occupational Stress Questionnaire Answer [...] GED or equivalent No 07/09/2024 Preferred Language [place] Citizen 07/09/2024 PHQ-2 Answer Date Recorded Patient [...] Description 05/18/2025 2:30 PM EST Office Visit [facility] INTERNAL MEDICINE [address]01 [place] [address] Enedina Mcguire, RAMBO 3101 [place], [place] [phone] 05/21/2025 12:30 PM EST Office Visit [facility] PAIN MA[facility]GEMENT 3000 [facility] 330 [place] [address] Vazquez Christie PA-C 1760 [facility] [address] [place] [address] documented as of this encounter Visit Diagnoses Not on filedocumented in this encounter Additional Health Concerns Assessment Noted Time PHQ-2 Depression Total Score: 1 12/31/19 24 3:25 PM EDT documented as of this encounter Care Teams Public Transportation Inspector Relationship Specialty Start Date End Date Enedina Mcguire APRN [address] [place] [address] PCP - General Nurse Practitioner 10/27/24 documented as of this encounter
--- OUTSIDE RECORDS SUMMARY | 2025-04-03 12:03 | XMS_ITS | Encounter Summary ---
Author Organization [facility] Address [address] [place] [address] Care Team Providers Care Business Services Tech Name Role Phone Enedina Mcguire NP Primary Care Provider + [phone] Maureen Pantoja RN Unavailable Unavail able Chris Orosco MD Unavailable [phone] Source Comments This information has been disclosed [...] release of HIV test results or diagnoses. [id number] [facility] Reason for Visit * Reason Comments Results Medication Dose Change Encounter Details Date Type Department Care Team (Late st Contact Info) Description 03/24/2025 Telephone [facility] Liver Transplant at [address] [address] Maureen Pantoja, ЮЛИЯ Results; Medication Dose Change Social History Tobacco Use Types Packs/Day Years Used Date Smoking Tobacco: Former Cigarettes Smokeless Tobacco: Current Alcohol Use Standard Drinks/Week Comments Yes 0 (1 standard drink = 0.6 oz pure alcohol) History of alcohol abuse, reports no use in 3 week- typically endorses use as 4 glasses of wine a days [facility] Utilities Answer Date Recorded In the past 12 months has [employer], gas, oil, or water company threatened [...] in a senior living (including now)? No 01/28/2025 Yearly Questionnaire Answer [...] as of this encounter Progress Notes * Audelia Quintana RN - 03/30/2025 7:07 AM ESTAddended by: AUDELIA QUINTANA on: 03/30/2025 07:07 AM Modules accepted: Orders * Audelia Quintana RN - 03/30/2025 7:03 AM EST Txp provider reviewed labs. Dr Orosco said: Please decrease tacrolimus to 5 mg twice daily. Repeat labs in 1 - 2 weeks. Dose updated. Patient updated via MyChart. * Audelia Quintana RN - 03/27/2025 12:57 PM EST FK level 14 Will route to Txp Provider for further review and recommendations. * Maureen Pantoja RN - 03/24/2025 4:27 PM EST Lab results from 03/20/25 reviewed. Cr 1.20 (from 1.30); BUN 14 (from 13). LFTs improved. Alk phos 71 (from 102), AST/ALT 21/19 (from 26/28). FK pending. Will follow-up. Current IS: FK 5 mg in AM and 6 mg in PM (decreased 03/16/25) MMF 250 mg BID (restarted 02/26/25) Prednisone 5 mg daily documented in this encounter Plan of Treatment Not on file documented as of this encounter Visit Diagnoses Diagnosis Encounter for therapeutic drug monitoring S/P liver transplant ([facility]) Hypomagnesemia Disorders of magnesium metabolism Kidney transplant recipient Hypertension, unspecified type Gastroesophageal reflux disease, unspecified whether esophagitis present documented in this encounter Additional Health Concerns Infection Onset Date Last Indicated Resolved Time C. difficile 01/28/2025 01/28/2025 Assessment Noted Time PHQ-9 Depression Total Score: 2 12/11/19 25 9:00 AM EDT documented as of this encounter Care Teams Business Services Tech Relationship Specialty Start Date End Date Enedina Mcguire NP [address] [place] [address] PCP - General Internal Medicine 10/05/24 Maureen Pantoja, ЮЛИЯ Txp Post Coordinator Transplant Hepatology 10/28/24 [place] [address] [place] [address] [address] [place] [address] Consulting Physician Transplant Hepatology 02/26/25 documented as of this encounter
--- OUTSIDE RECORDS SUMMARY | 2025-04-03 12:03 | XMS_ITS | Encounter Summary ---
Author Organization [facility] Address [address] [place] [address] Care Team Providers Care Therapeutic Riding Instructor Name Role Phone Enedina Mcguire NP Primary Care Provider + [phone] Maureen Pantoja RN Unavailable Unavail able Chris Orosco MD Unavailable [phone] Source Comments This information has been disclosed [...] release of HIV test results or diagnoses. [id number] Reason for Visit * Reason Comments Medication Refill Encounter Details Date Type Department Care Team (Late st Contact Info) Description 02/25/2025 Refill [facility] Liver Transplant at [address] [address] Lydia Sanchez MD [address] [place] [address] Liver/[place] [address] Encounter for therapeutic drug monitoring; S/P liver transplant ([facility]); Hypomagnesemia; Kidney transplant recipient; Hypertension, unspecified [...] as 4 glasses of wine a days [facility] Utilities Answer Date Recorded In the past 12 months has th e [employer], [employer], oil, or water company threatened to shut [...] as of this encounter Care Teams Therapeutic Riding Instructor Relationship Specialty Start Date End Date Enedina Mcguire NP [address] [place] [address] PCP - General Internal Medicine 10/05/24 Maureen Pantoja, RN Txp Post Coordinator Transplant Hepatology 10/28/24 Chris Orosco MD [address] [place] [address] [address] [place] [address] Consulting Physician Transplant Hepatology 02/26/25 documented as of this encounter
--- OUTSIDE RECORDS SUMMARY | 2025-04-03 12:03 | XMS_ITS | Encounter Summary ---
Author Organization [facility] Address [address] [place] [address] Care Team Providers Care Hiv Cts Specialist Name Role Phone Enedina Mcguire NP Primary Care Provider + [phone] Maureen Pantoja RN Unavailable Unavail able Chris Orosco MD Unavailable [phone] Source Comments This information has been disclosed [...] release of HIV test results or diagnoses. [id number] Reason for Visit * Reason Comments Medication Refill Encounter Details Date Type Department Care Team (Late st Contact Info) Description 03/31/2025 Refill [facility] Liver Transplant at [address] [address] Harvey Domínguez III, MD [address] [place] [address] Social History Tobacco Use Types Packs/Day Years Used Date Smoking Tobacco: Former Cigarettes Smokeless Tobacco: Current Alcohol Use Standard Drinks/Week Comments Yes 0 (1 standard drink = 0.6 oz pure alcohol) History of alcohol abuse, reports no use in 3 week- typically endorses use as 4 glasses of wine a days [facility] Utilities Answer Date Recorded In the past 12 months has th e [employer], [employer], oil, or water [employer] threatened to shut off services in your [...] documented as of this encounter Care Teams Hiv Cts Specialist Relationship Specialty Start Date End Date Enedina Mcguire NP [address] [place] [address] PCP - General Internal Medicine 10/05/24 Maureen Pantoja RN Txp Post Coordinator Transplant Hepatology 10/28/24 Chris Orosco MD [address] [place] [address] [address] [place] [address] Consulting Physician Transplant Hepatology 02/26/25 documented as of this encounter
--- OUTSIDE RECORDS SUMMARY | 2025-04-03 12:03 | XMS_ITS | Encounter Summary ---
Author Organization [facility] Address [address] [place] [address] Care Team Providers Care Hose Turner Name Role Phone Jony Conde MD Primary Care Provider [phone] Lj Tapia CORPORATE DEVELOPMENT ASSOCIATE Unavailable [phone] Enedina Mcguire CORPORATE DEVELOPMENT ASSOCIATE Primary Care Provider + Nuria Fall ELECTRIC ORGAN ASSEMBLER Unavailable Unavaila ble Encounter Details Date Type Department Care Team (Late st Contact Info) Description 07/03/2022 Orders Only External Location [address] [place] [address] Presley Montes De Oca MD [address] [place] [id number] Social History Tobacco Use Types Packs/Day Years [...] on filedocumented in this encounter Care Teams Hose Turner Relationship Specialty Start Date End Date Jony Conde MD [address] [place] [address] [address] [place] [address] PCP - General 07/18/22 12/03/22 Enedina Mcguire APRN [address] [place] [address] PCP - General 12/04/22 Lj Tapia APRN [facility]0 [place], [place] [id number] Referring Physician Gastroenterology 07/18/22 Nuria Fall LPN [facility] None TCM Nurse 07/24/24 08/23/24 documented as of this encounter
--- OUTSIDE RECORDS SUMMARY | 2025-04-03 12:03 | XMS_ITS | Encounter Summary ---
Author Organization [facility] Address [address] [place] [address] Care Team Providers Care Online Marketing Strategist Name Role Phone Enedina Mcguire APRN Primary Care Provider + Encounter Details Date Type Department Care Team (Late st Contact Info) Description 02/20/2025 Telephone [facility] PAIN MANAGEMENT [address] [address] Georgina Rainey MA Social History [...] Recorded In the past 12 months has [employer], [employer], oil, or water [employer] threatened to shut off services in [...] Brief Depression Severity Measure Score 0 10/02/2022 [facility] - Occupational Stress Questionnaire Answer Date Recorded [...] GED or equivalent No 07/09/2024 Preferred Language Bhutanese 07/09/2024 PHQ-2 Answer Date Recorded Patient Health [...] PM EST Office Visit [facility] INTER[facility] [address] [place] [address] Enedina Mcguire APRN [address] [place] [address] 05/21/2025 12:30 PM EST Office Visit [facility] PAIN [facility]NAGEMENT [address] [address] Vazquez Christie PA-C [address] [facility] [address] [place] [address] documented as of this encounter Visit Diagnoses Not on filedocumented in this encounter Additional Health Concerns Assessment Noted Time PHQ-2 Depression Total Score: 1 12/31/19 24 3:25 PM EDT documented as of this encounter Care Teams Online Marketing Strategist Relationship Specialty Start Date End Date Enedina Mcguire APRN [address] [place] [address] PCP - General Nurse Practitioner 10/27/24 documented as of this encounter
--- OUTSIDE RECORDS SUMMARY | 2025-04-03 12:03 | XMS_ITS | Encounter Summary ---
Author Organization [facility] Address [address] [place] [address] Care Team Providers Care Oil Field Equipment Mechanic Supervisor Name Role Phone Enedina Mcguire NP Primary Care Provider + [phone] Maureen Pantoja RN Unavailable Unavail able Chris Orosco MD Unavailable [phone] Source Comments This information has been disclosed [...] release of HIV test results or diagnoses. [id number] Encounter Details Date Type Department Care Team (Late st Contact Info) Description 03/20/2025 Chart Note [facility] Liver Transplant at [address] [address] Marlene Ro MA 03/20 Labs entered from [facility] Social History Tobacco Use Types Packs/Day Years Used Date Smoking Tobacco: Former Cigarettes Smokeless Tobacco: Current Alcohol Use Standard Drinks/Week Comments Yes 0 (1 standard drink = 0.6 oz pure alcohol) History of alcohol abuse, reports no use in 3 week- typically endorses use as 4 glasses of wine a days [facility] Utilities Answer Date Recorded In the past 12 months has [employer] electric, gas, oil, or water company threatened [...] Progress Notes * Marlene Ro MA - 03/20/2025 11:09 AM EST 03/20 Labs entered from [facility] documented in this encounter Plan of Treatment Not on file documented as of this encounter Procedures Procedure Name Priority Date/Time Associated Diagnosis Comments PHATIDYLETHANOL (PETH) Routine 7:15 AM EST URINE PROTEIN, TOTAL, RANDOM (W/O CREATININE) Routine 03/20/2025 7:15 AM EST BK VIRUS QUANTITATIVE BY PCR, BLOOD Routine 03/20/2025 7:15 AM EST HEPATIC FUNCTION PANEL Routine 7:15 AM EST TACROLIMUS LEVEL Routine 03/20/2025 7:15 AM EST CREATININE, URINE, RANDOM Routine 03/20/2025 7:15 AM EST URINALYSIS W/RFL TO MICROSCOPIC Routine 03/20/2025 7:15 AM EST CBC AND DIFFERENTIAL Routine 03/20/2025 7:15 AM EST URINE CULTURE Routine 03/20/2025 7:15 AM EST MAGNESIUM Routine 03/20/2025 7:15 AM EST RENAL FUNCTION PANEL W/O EGFR Routine 03/20/2025 7:15 AM EST documented in this encounter Results * Tacrolimus level (03/20/2025 7:15 AM EST) Tacrolimus Lvl 14.0 6 - 15 ng/mL Whole Blood Result [facility] Provider LAB BLOOD ORDERABLES Denisse l Result * Phatidylethanol (PEth) (03/20/2025 7:15 AM EST) Phosphatidylethanol (PEth) Positive 409 Whole Blood Result [facility] Provider LAB BLOOD ORDERABLES Denisse l Result * BK Virus Quantitative by PCR, Blood (03/20/2025 7:15 AM EST) BK Virus Quant PCR PL negative Plasma Result [facility] LAB BLOOD ORDERABLES Denisse l Result * Urine culture (03/20/2025 7:15 AM EST) Urine Culture, Comprehensive no growth after 48 hours URINE SPECIMEN / Unknown Result [facility] Provider MICROBIOLOGY - GENERAL OR DERABLES Final Result * Creatinine, urine, random (03/20/2025 7:15 AM EST) Creatinine, Urine 111 Urine Result [facility] Provider URINE ORDERABLES Final Re sult * Urine Protein, Tot, Random (w/o Creat) (03/20/2025 7:15 AM EST) Total Protein, Ur 19.0 Urine Result [facility] Provider URINE ORDERABLES Final Re sult * (ABNORMAL) Magnesium (03/20/2025 7:15 AM EST) Magnesium 1.2(A) 1.6 - 2.4 mg/dL Plasma Narrative Resulting Agency Comment [facility] Provider LAB BLOOD ORDERABLES Denisse l Result * (ABNORMAL) Urinalysis w/Rfl to Microscopic (03/20/2025 7:15 AM EST) [facility] Glucose, UA Negative Negative Ketones, UA Negative Negative Blood, UA Negative Negative Bilirubin, UA Negative Negative Urobilinogen, UA Normal Normal Protein, UA Trace(A) Negative Nitrite, UA Negative Negative Clarity, UA Clear Clear Color, UA Yellow Light Yellow, Yellow Urine Narrative Resulting Agency Comment [facility] Provider URINE ORDERABLES Final Re sult * (ABNORMAL) Renal Function Panel w/o EGFR (03/20/2025 7:15 AM EST) [facility] Glucose 153 BUN 14 CO2 25(A) 13 - 22 mmol/L Creatinine 1.20 Potassium 4.2 Sodium 137 Chloride 103 Phosphorus 3.8 2.5 - 4.9 mg/dL Calcium 9.7 EGFR 67 mg/dL Albumin 4.4 3.5 - 5.0 g/dL Blood Narrative Resulting Agency Comment [facility] Provider LAB BLOOD ORDERABLES Denisse l Result * (ABNORMAL) CBC and differential (03/20/2025 7:15 AM EST) [facility] Hemoglobin 13.3(A) 13.5 - 17.5 g/dL Hematocrit 37.9(A) 41 - 53 % RDW 14.7(A) 11.5 - 14.5 % Lymphocytes Absolute 0.9 / L Monocytes Absolute 0.5 / L Eosinophils Absolute 0.0 / L Basophils Absolute 0.0 / L Neutrophils Relative 81.0(A) 46 - 78 % Lymphocytes Relative 11.0(A) 18 - 52 % Monocytes Relative 5.9 3 - 10 % Eosinophils Relative 0.0 0 - 6 % Basophils Relative 0.5 0 - 3 % Neutrophils Absolute 6.9 / L MCH 33.8 26.0 - 34.0 pg MCHC 35.1 30 - 37 g/dL MCV 96.2 82.0 - 108.0 fL Platelets 159 K/ L RBC 3.94(A) 4.50 - 5.90 10^6/ L WBC 8.5 10^3/mL Blood Narrative Resulting Agency Comment [facility] Historical Provider LAB BLOOD ORDERABLES Denisse l Result * Hepatic Function Panel (03/20/2025 7:15 AM EST) Bilirubin, Direct 0.2 Bilirubin, Indirect 0.4 Alkaline Phosphatase 71 ALT 19 AST 21 Total Bilirubin 0.6 Total Protein 7.1 Plasma Narrative Resulting Agency Comment [facility] Historical Provider LAB BLOOD ORDERABLES Denisse l Result documented in this encounter Visit Diagnoses Not on filedocumented in this encounter Additional Health Concerns Infection Onset Date Last Indicated Resolved Time C. difficile 01/28/2025 01/28/2025 Assessment Noted Time PHQ-9 Depression Total Score: 2 12/11/19 9:00 AM EDT documented as of this encounter Care Teams Oil Field Equipment Mechanic Supervisor Relationship Specialty Start Date End Date Enedina Mcguire NP [address] [place] [address] PCP - General Internal Medicine 10/05/24 Maureen Pantoja, RN Txp Post Coordinator Transplant Hepatology 10/28/24 Chris Orosco MD [address] [place] [address] [address] [place] [address] Consulting Physician Transplant Hepatology 02/26/25 documented as of this encounter
--- OUTSIDE RECORDS SUMMARY | 2025-04-03 12:03 | XMS_ITS | Encounter Summary ---
Author Organization [facility] Address [address] [place] [address] Care Team Providers Care Seasonal Package Handler Name Role Phone Enedina Mcguire APRN Primary Care Provider + Reason for Visit * Reason Comments Med Refill Encounter Details Date Type Department Care Team (Late st Contact Info) Description 09/12/2022 Refill [facility] GASTROENTEROLOGY [address] [facility] [address] [place] [address] Lj Tapia APRN [address] [place] [address] Social History Tobacco Use Types Packs/Day Years [...] or training? Not on file Preferred Language South African 07/03/2022 Sex and Gender Information Value Date [...] [facility] INTERNAL MEDICINE [address] [place] [id number] Enedina Mcguire APRN [address] [place] [address] 05/21/2025 12:30 PM EST Office Visit [facility] [address] [address] Vazquez Christie PA-C [address] [facility] [address] [place], [place] [id number] documented as of this encounter Visit Diagnoses Not on filedocumented in this encounter Care Teams Seasonal Package Handler Relationship Specialty Start Date End Date Enedina Mcguire APRN [address] [place] [address] PCP - General Nurse Practitioner 10/27/24 documented as of this encounter
--- OUTSIDE RECORDS SUMMARY | 2025-04-03 12:03 | XMS_ITS | Encounter Summary ---
Author Organization [facility] Address [address] [place] [address] Care Team Providers Care Learning And Development Coordinator Name Role Phone Enedina Mcguire NP Primary Care Provider + [phone] Maureen Pantoja RN Unavailable Unavail able Chris Orosco MD Unavailable [phone] Source Comments This information has been disclosed [...] release of HIV test results or diagnoses. [id number] Encounter Details Date Type Department Care Team (Late st Contact Info) Description 03/30/2025 Chart Note [facility] Liver Transplant at [address] [address] Marlene Ro MA 03/27 Labs entered from [facility] Social History Tobacco Use Types Packs/Day Years Used Date Smoking Tobacco: Former Cigarettes Smokeless Tobacco: Current Alcohol Use Standard Drinks/Week Comments Yes 0 (1 standard drink = 0.6 oz pure alcohol) History of alcohol abuse, reports no use in 3 week- typically endorses use as 4 glasses of wine a days [facility] Utilities Answer Date Recorded In the past 12 months has [employer] electric, gas, oil, or water company threatened [...] URINE PROTEIN, TOTAL, RANDOM (W/O CREATININE) Routine 03/27/2025 10:52 AM EST HEPATIC FUNCTION PANEL Routine 03/27/2025 10:52 AM EST CREATININE, URINE, RANDOM Routine 03/27/2025 10:52 AM EST URINALYSIS W/RFL TO MICROSCOPIC Routine 03/27/2025 10:52 AM EST CBC AND DIFFERENTIAL Routine 03/27/2025 10:52 AM EST URINE CULTURE Routine 03/27/2025 10:52 AM EST MAGNESIUM Routine 03/27/2025 10:52 AM EST RENAL FUNCTION PANEL W/O EGFR Routine 03/27/2025 10:52 AM EST documented in this encounter Results * (ABNORMAL) Magnesium (03/27/2025 10:52 AM EST) Magnesium 1.1(A) 1.6 - 2.4 mg/dL Plasma Narrative Resulting Agency Comment [facility] us Historical Provider LAB BLOOD ORDERABLES Denisse l Result * (ABNORMAL) Renal Function Panel w/o EGFR (03/27/2025 10:52 AM EST) Glucose 110 BUN 12 CO2 25(A) 13 - 22 mmol/L Creatinine 1.20 Potassium 3.8 Sodium 136 Chloride 99 Phosphorus 3.8 2.5 - 4.9 mg/dL Calcium 9.7 EGFR 67 mg/dL Albumin 4.7 3.5 - 5.0 g/dL Blood Narrative Resulting Agency Comment [facility] Result [facility] Provider LAB BLOOD ORDERABLES Denisse l Result * Creatinine, urine, random (03/27/2025 10:52 AM EST) Creatinine, Urine 81 Urine Narrative Resulting Agency Comment [facility] Result [facility] Provider URINE ORDERABLES Final Re sult * Urinalysis w/Rfl to Microscopic (03/27/2025 10:52 AM EST) Pathologist [facility] Glucose, UA Negative Negative Ketones, UA Negative Negative Blood, UA Negative Negative Bilirubin, UA Negative Negative Urobilinogen, UA Normal Normal Protein, UA Negative Negative Nitrite, UA Negative Negative pH, UA 7.0 4.5 - 8.0 Specific [place], UA 1.010 1.005 - 1.030 Clarity, UA Clear Clear Color, UA Yellow Light Yellow, Yellow Urine Narrative Resulting Agency Comment [facility] Result [facility] URINE ORDERABLES Final Re sult * (ABNORMAL) CBC and differential (03/27/2025 10:52 AM EST) Pathologist [facility] Hemoglobin 14.4 13.5 - 17.5 g/dL Hematocrit 41.6 41 - 53 % RDW 14.9(A) 11.5 - 14.5 % Lymphocytes Absolute 2.1 / L Monocytes Absolute 0.6 / L Eosinophils Absolute 0.1 / L Basophils Absolute 0.1 / L Neutrophils Relative 66.7 46 - 78 % Lymphocytes Relative 23.5 18 - 52 % Monocytes Relative 7.1 3 - 10 % Eosinophils Relative 0.8 0 - 6 % Basophils Relative 0.8 0 - 3 % Neutrophils Absolute 6.0 / L MCH 33.6 26.0 - 34.0 pg MCHC 34.6 30 - 37 g/dL MCV 97.0 82.0 - 108.0 fL Platelets 162 K/ L RBC 4.29(A) 4.50 - 5.90 10^6/ L WBC 9.0 10^3/mL Blood Narrative Resulting Agency Comment [facility] Provider LAB BLOOD ORDERABLES Denisse l Result * Urine Protein, Tot, Random (w/o Creat) (03/27/2025 10:52 AM EST) Total Protein, Ur 24.0 Urine Narrative Resulting Agency Comment [facility] Provider URINE ORDERABLES Final Re sult * Hepatic Function Panel (03/27/2025 10:52 AM EST) Bilirubin, Direct 0.2 Bilirubin, Indirect 0.7 Alkaline Phosphatase 74 ALT 25 AST 33 Total Bilirubin 0.9 Total Protein 7.1 Plasma Narrative Resulting Agency Comment [facility] Result [facility] Provider LAB BLOOD ORDERABLES Denisse l Result * Urine culture (03/27/2025 10:52 AM EST) Urine Culture, Comprehensive no growth after 48 hours URINE SPECIMEN / Unknown Narrative Resulting Agency Comment [facility] Result [facility] Provider MICROBIOLOGY - GENERAL OR DERABLES Final Result documented in this encounter Visit Diagnoses Not on filedocumented in this encounter Additional Health Concerns Infection Onset Date Last Indicated Resolved Time C. difficile 01/28/2025 01/28/2025 Assessment Noted Time PHQ-9 Depression Total Score: 2 12/11/19 25 9:00 AM EDT documented as of this encounter Care Teams Learning And Development Coordinator Relationship Specialty Start Date End Date Enedina Mcguire NP [address] [place] [address] PCP - General Internal Medicine 10/05/24 Maureen Pantoja, RN Txp Post Coordinator Transplant Hepatology 10/28/24 Chris Orosco MD [address] [place] [address] [address] [place] [address] Consulting Physician Transplant Hepatology 02/26/25 documented as of this encounter
--- OUTSIDE RECORDS SUMMARY | 2025-04-03 12:03 | XMS_ITS | Encounter Summary ---
Author Organization Healthcare Address [address] [place] [address] Care Team Providers Care Hotel Supplies Salesperson Name Role Phone Jony Conde MD Primary Care Provider [phone] Lj Tapia TIMBER ROBBER Unavailable [phone] Enedina Mcguire TIMBER ROBBER Primary Care Provider + Nuria Fall ANALYST GEOCHEMICAL PROSPECTING Unavailable Unavaila ble Encounter Details Date Type Department Care Team (Late st Contact Info) Description 07/04/2022 Orders Only External Location [address] [place] [address] Presley Montes De Oca MD [address] [place] [id number] Social History Tobacco Use Types Packs/Day Years [...] on filedocumented in this encounter Care Teams Hotel Supplies Salesperson Relationship Specialty Start Date End Date Jony Conde MD [address] [place] [address] [address] [place], [place] [id number] PCP - General 07/18/22 12/03/22 Enedina Mcguire APRN [address] [place] [address] PCP - General 12/04/22 Lj Tapia APRN [address] [place] [address] [id number] Referring Physician Gastroenterology 07/18/22 Nuria Fall LPN [facility] None TCM Nurse 07/24/24 08/23/24 documented as of this encounter
--- OUTSIDE RECORDS SUMMARY | 2025-04-03 12:03 | XMS_ITS | Encounter Summary ---
Author Organization [facility] Address [address] [place] [address] Care Team Providers Care Institute Director Name Role Phone Enedina Mcguire NP Primary Care Provider + [phone] Maureen Pantoja RN Unavailable Unavail able Chris Orosco MD Unavailable [phone] Source Comments This information has been disclosed [...] release of HIV test results or diagnoses. [id number] Reason for Visit * Reason Comments Medication Refill Encounter Details Date Type Department Care Team (Late st Contact Info) Description 03/02/2025 Refill [facility] [address] [place] [address] Feliciano Gomez CNP [address] [place] [address] [id number] Social History Tobacco Use Types Packs/Day Years Used Date Smoking Tobacco: Former Cigarettes Smokeless Tobacco: Current Alcohol Use Standard Drinks/Week Comments Yes 0 (1 standard drink = 0.6 oz pure alcohol) History of alcohol abuse, reports no use in 3 week- typically endorses use as 4 glasses of wine a days [facility] Utilities Answer Date Recorded In the past 12 months has th e [facility], [employer], oil, or water [employer] threatened to shut off services in your [...] Date End Date Enedina Mcguire NP [address] [place] [address] PCP - General Internal Medicine 10/05/24 Maureen Pantoja, ЮЛИЯ Txp Post Coordinator Transplant Hepatology 10/28/24 Chris Orosco MD [address] [place] [address] [address] [place] [address] Consulting Physician Transplant Hepatology 02/26/25 documented as of this encounter
--- OUTSIDE RECORDS SUMMARY | 2025-04-03 12:03 | XMS_ITS | Encounter Summary ---
Author Organization [facility] Address [address] [place] [address] Care Team Providers Care Toe Trimmer Name Role Phone Enedina Mcguire APRN Primary Care Provider + Encounter Details Date Type Department Care Team ([facility] st Contact Info) Description 10/07/2024 Results Follow-Up [facility] INTERNAL MEDICINE [address] [place] [address] Enedina Mcguire APRN [address] [place], [place] [phone] Social History Tobacco Use Types Packs/Day Years Used Date Smoking Tobacco: Former Cigarettes 4 20 Passive Smoke Exposure: Past Smokeless Tobacco: Current Comments:MARIJUANA USE ABOUT 2X PER WEEK - reports no use 08-05-2024 Alcohol Use Standard Drinks/Week Comments Not Currently 0 (1 standard drink = 0.6 oz pure alcohol) 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 [facility] Utilities Answer Date Recorded In the past 12 months has [employer], [employer], oil, or water [employer] threatened to shut off services in [...] Brief Depression Severity Measure Score 0 10/02/2022 [facility] of Occupat ional Health [...] [facility] INTERNAL MEDICINE [address] [place] [address] Enedina Mcguire APRN [address] [place] [address] 05/21/2025 12:30 PM EST Office Visit [facility] PAIN MANAGEMENT [address] [facility] [address] [place] [address] Vazquez Christie PA-C [address] [place] [address] [place] [address] documented as of this encounter Visit Diagnoses Not on filedocumented in this encounter Additional Health Concerns Assessment Noted Time PHQ-2 Depression Total Score: 1 12/31/19 24 3:25 PM EDT documented as of this encounter Care Teams Toe Trimmer Relationship Specialty Start Date End Date Enedina Mcguire APRN [address] [place] [address] [id number] PCP - General Nurse Practitioner 10/27/24 documented as of this encounter
--- OUTSIDE RECORDS SUMMARY | 2025-04-03 12:03 | XMS_ITS | Encounter Summary ---
[facility] Address [address] [place] [address] Care Team Providers Care Replanting Machine Crew Name Role Phone Enedina Mcguire APRN Primary Care Provider + Encounter Details Date Type Department Care Team ([facility] st Contact Info) Description 10/07/2024 Results Follow-Up [facility] INTERNAL MEDICINE [address] [place] [address] Enedina Mcguire APRN [address] [place], [place] [id number] Social History Tobacco Use Types Packs/Day Years [...] Recorded In the past 12 months has [employer], [employer], oil, or water [employer] threatened to shut off services in your [...] Severity Measure Score 0 10/02/2022 [facility] of Occupat ional Health - Occupational [...] GED or equivalent No 07/09/2024 Preferred Language New Zealander 07/09/2024 PHQ-2 Answer Date Recorded Patient Health [...] Description 05/18/2025 2:30 PM EST Office Visit [facility] INTERNAL MEDICINE [address] [place] [address] Enedina Mcguire APRN [address] [place] [address] 05/21/2025 12:30 PM EST Office Visit [facility] PAIN MANAGEMENT [address] [facility] [address] [place] [address] Vazquez Christie PA-C [address] [place] [address] [place] [address] documented as of this encounter Visit Diagnoses Not on filedocumented in this encounter Additional Health Concerns Assessment Noted Time PHQ-2 Depression Total Score: 1 12/31/19 24 3:25 PM EDT documented as of this encounter Care Teams Replanting Machine Crew Relationship Specialty Start Date End Date Enedina Mcguire APRN [address] [place] [address] [id number] PCP - General Nurse Practitioner 10/27/24 documented as of this encounter
--- OUTSIDE RECORDS SUMMARY | 2025-04-03 12:03 | XMS_ITS | Encounter Summary ---
Author Organization [facility] Address [address] [place] [address] Care Team Providers Care Commercial Retoucher Name Role Phone Enedina Mcguire NP Primary Care Provider + [phone] Alicia Rankin RN Unavailable Unavail able Chris Orosco MD Unavailable [phone] Source Comments This information has been disclosed [...] release of HIV test results or diagnoses. [id number] Health Reason for Visit * Reason Comments Results Medication Dose Change Encounter Details Date Type Department Care Team (Late st Contact Info) Description 02/26/2025 Telephone [facility] Liver Transplant at [address] [address] Alicia Rankin, ЮЛИЯ Results; Medication Dose Change Social History Tobacco Use Types Packs/Day Years Used Date Smoking Tobacco: Former Cigarettes Smokeless Tobacco: Current Alcohol Use Standard Drinks/Week Comments Yes 0 (1 standard drink = 0.6 oz pure alcohol) History of alcohol abuse, reports no use in 3 week- typically endorses use as 4 glasses of wine a days [facility] Utilities Answer Date Recorded In the past 12 months has [employer] electric, gas, oil, or water company threatened [...] as of this encounter Care Teams Commercial Retoucher Relationship Specialty Start Date End Date Enedina Mcguire NP [address] [place] [address] PCP - General Internal Medicine 10/05/24 Alicia Rankin RN Txp Post Coordinator Transplant Hepatology 10/28/24 Chris Orosco MD [address] [place] [address] [address] [place] [address] Consulting Physician Transplant Hepatology 02/26/25 documented as of this encounter
--- OUTSIDE RECORDS SUMMARY | 2025-04-03 12:03 | XMS_ITS | Encounter Summary ---
Author Organization [facility] Address [address] [place] [address] Care Team Providers Care Mail Examiner Name Role Phone Enedina Mcguire NP Primary Care Provider + [phone] Maureen Pantoja RN Unavailable Unavail able Chris Orosco MD Unavailable [phone] Source Comments This information has been disclosed [...] release of HIV test results or diagnoses. [id number] Encounter Details Date Type Department Care Team (Late st Contact Info) Description 03/02/2025 Telephone [facility] Liver Transplant at [address] [address] Marlene Ro MA Social History Tobacco Use Types Packs/Day Years Used Date Smoking Tobacco: Former Cigarettes Smokeless Tobacco: Current Alcohol Use Standard Drinks/Week Comments Yes 0 (1 standard drink = 0.6 oz pure alcohol) History of alcohol abuse, reports no use in 3 week- typically endorses use as 4 glasses of wine a days [facility] Utilities Answer Date Recorded In the past 12 months has [employer], gas, oil, or water [employer] threatened to shut off services in your [...] as of this encounter Care Teams Mail Examiner Relationship Specialty Start Date End Date Eendina Mcguire NP [address] [place] [address] PCP - General Internal Medicine 10/05/24 Maureen Pantoja, ЮЛИЯ Txp Post Coordinator Transplant Hepatology 10/28/24 Chris Orosco MD [address] [place] [address] [address] [place] [address] Consulting Physician Transplant Hepatology 02/26/25 documented as of this encounter
--- OUTSIDE RECORDS SUMMARY | 2025-04-03 12:03 | XMS_ITS | Encounter Summary ---
Author Organization Healthcare Address [address] [place] [address] Care Team Providers Care State Comptroller Name Role Phone Jony Conde MD Primary Care Provider [phone] Lj Tapia ELECTRONIC MASKING SYSTEM OPERATOR Unavailable [phone] Enedina Mcguire ELECTRONIC MASKING SYSTEM OPERATOR Primary Care Provider + Nuria Fall DIRECTOR OF RESEARCH Unavailable Unavaila ble Encounter Details Date Type Department Care Team (Late st Contact Info) Description 07/04/2022 Orders Only External Location [address] [place] [address] Presley Montes De Oca MD [address] [place] [id number] Social History Tobacco Use Types Packs/Day Years [...] on filedocumented in this encounter Care Teams State Comptroller Relationship Specialty Start Date End Date Jony Conde MD [address] [facility] [address] [place] [address] PCP - General 07/18/22 12/03/22 Enedina Mcguire APRN [address] [place] [address] PCP - General 12/04/22 Lj Tapia APRN [address] [place] [address] Referring Physician Gastroenterology 07/18/22 Nuria Fall LPN [facility] None TCM Nurse 07/24/24 08/23/24 documented as of this encounter
--- OUTSIDE RECORDS SUMMARY | 2025-04-03 12:03 | XMS_ITS | Encounter Summary ---
Author Organization [facility] Address [address] [place] [address] Care Team Providers Care Talent Consultant Name Role Phone Enedina Mcguire NP Primary Care Provider + [phone] Maureen Pantoja RN Unavailable Unavail able Chris Orosco MD Unavailable [phone] Source Comments This information has been disclosed [...] release of HIV test results or diagnoses. [id number] Encounter Details Date Type Department Care Team (Late st Contact Info) Description 02/26/[address] [facility] Liver Transplant at [place] [id number] [address] [address] Marlene Ro MA 02/24 Labs entered from [facility] Social History Tobacco Use Types Packs/Day Years Used Date Smoking Tobacco: Former Cigarettes Smokeless Tobacco: Current Alcohol Use Standard Drinks/Week Comments Yes 0 (1 standard drink = 0.6 oz pure alcohol) History of alcohol abuse, reports no use in 3 week- typically endorses use as 4 glasses of wine a days [facility] Utilities Answer Date Recorded In the past 12 months has [employer] electric, gas, oil, or water company [...] were not included. 02/24 Labs entered from [facility] documented in this encounter Plan [...] 15 ng/mL Whole Blood Result [facility] LAB BLOOD ORDERABLES Denisse l Result * (ABNORMAL) Magnesium (02/24/2025 1:03 PM EDT) [facility] Magnesium 1.2(A) 1.6 - 2.4 mg/dL Plasma Narrative Resulting Agency Comment [facility] Result [facility] LAB BLOOD ORDERABLES Denisse l Result * (ABNORMAL) Renal Function Panel w/o EGFR (02/24/2025 1:03 PM EDT) [facility] Glucose 121 BUN 18 CO2 26(A) 13 - 22 mmol/L Creatinine 1.00 Potassium 4.1 Sodium 140 Chloride 99 Phosphorus 4.6 2.5 - 4.9 mg/dL Calcium 9.4 EGFR 82 mg/dL Albumin 4.7 3.5 - 5.0 g/dL Blood Narrative Resulting Agency Comment [facility] Result [facility] LAB BLOOD ORDERABLES Denisse l Result * Creatinine, urine, random (02/24/2025 1:03 PM EDT) [facility] Creatinine, Urine 96 Urine Narrative Resulting Agency Comment [facility] Result [facility] URINE ORDERABLES Final Re sult * (ABNORMAL) Urinalysis w/Rfl to Microscopic (02/24/2025 1:03 PM EDT) [facility] Glucose, UA Negative Negative Ketones, UA Negative Negative Blood, UA Negative Negative Bilirubin, UA Negative Negative Urobilinogen, UA Normal Normal Protein, UA 1+(A) Negative pH, UA 6.0 4.5 - 8.0 Specific [place], UA 1.020 1.005 - 1.030 Clarity, UA Clear Clear Color, UA Yellow Light Yellow, Yellow Urine Narrative Resulting Agency Comment [facility] Result [facility] URINE ORDERABLES Final Re sult * (ABNORMAL) [...] Resulting Agency Comment [facility] Result [facility] Provider LAB BLOOD ORDERABLES Denisse l Result * Urine Protein, Tot, Random (w/o Creat) (02/24/2025 1:03 PM EDT) Pathologist [facility] Total Protein, Ur 63.0 Urine Narrative Resulting Agency Comment [facility] Result [facility] URINE ORDERABLES Final Re sult * Hepatic Function Panel (02/24/2025 1:03 PM EDT) Bilirubin, Direct 0.5 Bilirubin, Indirect 0.4 Alkaline Phosphatase 184 ALT 52 AST 71 Total Bilirubin 0.9 Total Protein 6.8 Plasma Narrative Resulting Agency Comment [facility] Result [facility] Provider LAB BLOOD ORDERABLES Denisse l Result * Urine culture (02/24/2025 1:03 PM EDT) Urine Culture, Comprehensive no growth URINE SPECIMEN / Unknown Narrative Resulting Agency Comment [facility] us Historical Provider MICROBIOLOGY - GENERAL OR DERABLES Final Result documented in this encounter Visit Diagnoses Not on filedocumented in this encounter Additional Health Concerns Infection Onset Date Last Indicated Resolved Time C. difficile 01/28/2025 01/28/2025 Assessment Noted Time PHQ-9 Depression Total Score: 2 12/11/19 25 9:00 AM EDT documented as of this encounter Care Teams Talent Consultant Relationship Specialty Start Date End Date Enedina Mcguire NP [address] [place] [address] PCP - General Internal Medicine 10/05/24 Maureen Pantoja, ЮЛИЯ Txp Post Coordinator Transplant Hepatology 10/28/24 Chris Orosco MD [address] [place] [address] [address] [place] [address] Consulting Physician Transplant Hepatology 02/26/25 documented as of this encounter
--- OUTSIDE RECORDS SUMMARY | 2025-04-03 12:03 | XMS_ITS | Encounter Summary ---
Author Organization Healthcare Address [address] [place] [address] Care Team Providers Care News Videographer Name Role Phone Jony Conde MD Primary Care Provider [phone] Lj Tapia BRANCH ASSISTANT Unavailable [phone] Enedina Mcguire APRN Primary Care Provider + Nuria Fall GAME PROGRAMMER Unavailable Unavaila ble Encounter Details Date Type Department Care Team (Late st Contact Info) Description 07/02/2022 Orders Only External Location [address] [place] [address] Provider, External Social History Tobacco Use Types [...] on filedocumented in this encounter Care Teams News Videographer Relationship Specialty Start Date End Date Jony Conde MD [address] [facility] [address] [place], [place] [id number] PCP - General 07/18/22 12/03/22 Enedina Mcguire APRN [address] [place] [address] PCP - General 12/04/22 Lj Tapia APRN [address] [place] [address] Referring Physician Gastroenterology 07/18/22 Nuria Fall LPN [facility] None TCM Nurse 07/24/24 08/23/24 documented as of this encounter
--- OUTSIDE RECORDS SUMMARY | 2025-04-03 12:04 | XMS_ITS | Encounter Summary ---
Author Organization [facility] Address [address] [place] [address] Care Team Providers Care Archaeology Professor Name Role Phone Enedina Mcguire APRN Primary Care Provider + Reason for Visit * Reason Onset Date Comments Med Refill 03/16/2025 Encounter Details Date Type Department Care Team ([facility] st Contact Info) Description 03/15/2025 Refill [facility] [address] [place] [address] Enedina Mcguire APRN [address] [place] [address] Acquired hypothyroidism Social History Tobacco [...] Recorded In the past 12 months has [employer], gas, oil, or water [employer] threatened to shut off services in your [...] Measure Score 0 10/02/2022 [facility] - Occupational Stress Questionnaire Answer [...] GED or equivalent No 07/09/2024 Preferred Language Puerto Rican 07/09/2024 PHQ-2 Answer Date Recorded Patient [...] [facility] [address] [place] [address] Enedina Mcguire, BODY WIRER [address] [place] [address] 05/21/2025 12:30 PM EST Office Visit [facility] PAIN MANAGEMENT 3000 [facility] [address] [place] [address] Vazquez Christie PA-C [address] [facility] [address] [place] [address] documented as of this encounter Visit Diagnoses Diagnosis Acquired hypothyroidism Unspecified hypothyroidism documented in this encounter Additional Health Concerns Assessment Noted Time PHQ-2 Depression Total Score: 1 12/31/19 24 3:25 PM EDT documented as of this encounter Care Teams Archaeology Professor Relationship Specialty Start Date End Date Enedina Mcguire APRN [address] [place] [address] PCP - General Nurse Practitioner 10/27/24 documented as of this encounter
--- OUTSIDE RECORDS SUMMARY | 2025-04-03 12:04 | XMS_ITS | Encounter Summary ---
[facility] Address [address] [place] [address] Care Team Providers Care Jewelry Designer Name Role Phone Enedina Mcguire APRN Primary Care Provider + Reason for Visit * Reason Comments Med Refill Encounter Details Date Type Department Care Team ([facility] st Contact Info) Description 03/16/2025 Refill [facility] [address] [place] [address] Enedina Mcguire APRN [address] [place], [place] [phone] Erectile dysfunction, unspecified erectile dysfunction type Social [...] Recorded In the past 12 months has [employer], [employer], oil, or water [employer] threatened to shut off services in your [...] 0 10/02/2022 [facility] - Occupational Stress Questionnaire Answer Date [...] GED or equivalent No 07/09/2024 Preferred Language Comoran 07/09/2024 PHQ-2 Answer Date Recorded Patient Health [...] Description 05/18/2025 2:30 PM EST Office Visit [facility] [address] [place] [address] Enedina Mcguire, AIR COMPRESSOR ENGINEER [address] [place] [address] 05/21/2025 12:30 PM EST Office Visit [facility] PAIN MANAGEMENT [address] [address] Vazquez Christie PA-C [address] [address] documented as of this encounter Visit Diagnoses Diagnosis Erectile dysfunction, unspecified erectile dysfunction type documented in this encounter Additional Health Concerns Assessment Noted Time PHQ-2 Depression Total Score: 1 12/31/19 24 3:25 PM EDT documented as of this encounter Care Teams Jewelry Designer Relationship Specialty Start Date End Date Enedina Mcguire APRN [address] [place] [address] PCP - General Nurse Practitioner 10/27/24 documented as of this encounter
--- OUTSIDE RECORDS SUMMARY | 2025-04-03 12:04 | XMS_ITS | Encounter Summary ---
[facility] Organization [facility] Address [address] [place] [address] Care Team Providers Care Change Management Facilitator Name Role Phone Enedina Mcguire APRN Primary Care Provider + Reason for Visit * Reason Onset Date Comments Results 02/20/2025 Encounter Details Date Type Department Care Team ([facility] st Contact Info) Description 02/20/2025 Telephone [facility] INTER[facility] [address] [place] [address] Enedina Mcguire APRN [address] [place] [address] Results Social History Tobacco Use Types Packs/Day Years Used Date Smoking Tobacco: Former Cigarettes 4 20 Passive Smoke Exposure: Past Smokeless Tobacco: Current Comments:MARIJUANA USE ABOUT 2X PER WEEK - reports no use 08-05-2024 Alcohol Use Standard Drinks/Week Comments Not Currently 0 (1 standard drink = 0.6 oz pure alcohol) 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 [facility] Utilities Answer Date Recorded In the past 12 months has [employer], [employer], oil, or water [employer] threatened to shut off services in your [...] Brief Depression Severity Measure Score 0 10/02/2022 [facility] - Occupational Stress Questionnaire Answer [...] GED or equivalent No 07/09/2024 Preferred Language Sammarinese 07/09/2024 PHQ-2 Answer Date Recorded Patient Health Questionnaire-9 Score 6 01/01/2025 Sex and Gender Information Value Date Recorded Sex Assigned at Male 08/20/2024 8:28 PM EDT Legal Sex Male 7:45 AM EDT Gender Identity Not on file Sexual Orientation Not on file documented as of this encounter Miscellaneous Notes * Telephone Encounter - Valarie Rangel CMA - 02/20/2025 2:42 PM EDT Pt sent Imagiin. message as well, message sent to Enedina on results * Telephone Encounter - Liliana Glez RegSched Rep - 02/20/2025 1:34 PM EDT Caller: Julien Anderson Relationship: Self Best call back number: [phone] What test was performed: TESTOSTERONE TEST When [...] 05/18/2025 2:30 PM EST Office Visit [facility] INTER[facility] [address] [place] [address] Enedina Mcguire, SOFTWARE PROGRAMMER [address] [place] [address] 05/21/2025 12:30 PM EST Office Visit [facility]IN [facility] 3000 [facility] 330 [place] [address] Vazquez Christie PA-C [address] [facility] [address] [place] [address] documented as of this encounter Visit Diagnoses Not on filedocumented in this encounter Additional Health Concerns Assessment Noted Time PHQ-2 Depression Total Score: 1 12/31/19 24 3:25 PM EDT documented as of this encounter Care Teams Change Management Facilitator Relationship Specialty Start Date End Date Enedina Mcguire APRN [address] [place] [address] PCP - General Nurse Practitioner 10/27/24 documented as of this encounter
--- OUTSIDE RECORDS SUMMARY | 2025-04-03 12:04 | XMS_ITS | Encounter Summary ---
Author Organization [facility] Address [address] [place] [address] Care Team Providers Care Flute Polisher Name Role Phone Enedina Mcguire APRN Primary [...] 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 Utilities Answer Date Recorded In the past 12 months has [employer], gas, oil, or water [employer] threatened to shut off services in [...] Brief Depression Severity Measure Score 0 10/02/2022 [facility] [place] of Occupat ional Health - Occupational Stress [...] GED or equivalent No 07/09/2024 Preferred Language Gambian 07/09/2024 PHQ-2 Answer Date Recorded Patient Health [...] Visit [facility] INTERNAL MEDICINE [address] [place] [address] Enedina Mcguire APRN [address] [place] [phone] 05/21/2025 12:30 PM EST Office Visit [facility] PAIN MANAGEMENT 3000 [facility] [address] [place] [address] Vazquez Christie PA-C [address] [place] [address] [address] [place] [address] documented as of this encounter Visit Diagnoses Not on filedocumented in this encounter Additional Health Concerns Assessment Noted Time PHQ-2 Depression Total Score: 1 12/31/19 24 3:25 PM EDT documented as of this encounter Care Teams Flute Polisher Relationship Specialty Start Date End Date Enedina Mcguire APRN [address] [place] [address] [phone] PCP - General Nurse Practitioner 10/27/24 documented as of this encounter
--- OUTSIDE RECORDS SUMMARY | 2025-04-03 12:04 | XMS_ITS | Encounter Summary ---
Author Organization [facility] Address [address] [place] [address] Care Team Providers Care Wet Machine Tender Name Role Phone Enedina Mcguire APRN Primary Care Provider + Encounter Details Date Type Department Care Team (Late st Contact Info) Description 03/19/2025 Documentation [facility] PAIN MANAGEMENT [address] [address] Tye Song MD [address] [place] [phone] Social History Tobacco Use Types Packs/Day Years Used Date Smoking Tobacco: Former Cigarettes 4 20 Passive Smoke Exposure: Past Smokeless Tobacco: Current Comments:MARIJUANA USE ABOUT 2X PER WEEK - reports no use 08-05-2024 Alcohol Use Standard Drinks/Week Comments Not Currently 0 (1 standard drink = 0.6 oz pure alcohol) 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 [facility] Utilities Answer Date Recorded In the past 12 months has [employer], [employer], oil, or water [employer] threatened to shut off services in your [...] Measure Score 0 10/02/2022 [facility] - Occupational Stress Questionnaire Answer [...] GED or equivalent No 07/09/2024 Preferred Language Fijian 07/09/2024 PHQ-2 Answer Date Recorded Patient Health Questionnaire-2 Score 0 03/03/2025 Sex and Gender Information Value Date Recorded Sex Assigned at Male 08/20/2024 8:28 PM EDT Legal Sex Male 7:45 AM EDT Gender Identity Not on file Sexual Orientation Not on file documented as of this encounter Progress Notes * Tye Song MD - 03/19/2025 9:37 AM EST [facility] [address] [place] [address] 03/19/2025 PROCEDURE: Greater Occipital Nerve Block -RIGHT [...] discharge. FOLLOW UP: As scheduled ADDITIONAL NOTES: [facility] Management Tye Song MD documented in this encounter Plan of Treatment Upcoming Encounters Date Type Department Care Team (Late st Contact Info) Description 05/18/2025 2:30 PM EST Office Visit [facility] INTERNAL MEDICINE [address] [place] [address] Enedina Mcguire, ASSURANCE SPECIALIST [address] [place] [address] [phone] 05/21/2025 12:30 PM EST Office Visit [facility] PAIN MANAGEMENT [address] [address] Vazquez Christie PA-C [address] [place] [address] [address] [place] [phone] documented as of this encounter Visit Diagnoses Not on filedocumented in this encounter Additional Health Concerns Assessment Noted Time PHQ-2 Depression Total Score: 1 12/31/19 24 3:25 PM EDT documented as of this encounter Care Teams Wet Machine Tender Relationship Specialty Start Date End Date Enedina Mcguire, ASSURANCE SPECIALIST [address] [place] [address] [phone] PCP - General Nurse Practitioner 10/27/24 documented as of this encounter
--- OUTSIDE RECORDS SUMMARY | 2025-04-03 12:04 | XMS_ITS | Data Portability ---
Author Organization [facility],, Main Office Address [address] [place] [address] Assessment No assessment recorded. Plan of Treatment [...] Available No t Available BD Regular Bevel [place] 18 gauge x 1 active Not Available [...] Updated DateTime 3 193.04 cm 29.1 kg/m2 704839. 58 g 112 /min 97.7 [degF] 141/84 mm[Hg] [facility] FERTILITY AND [facility], 3 13:14:11 Date Recorded Body height Body mass index (BMI) Body weight Heart rate Body temperature Systolic And Diastolic Provider Name and Address Organization Details Last Updated DateTime 4 193.04 cm 30.4 kg/m2 397373. 09 g 92 /min 97.5 [degF] 176/104 mm[Hg] [facility], 4 14:06:31 Date Recorded Body temperature Provider Name a nd Address Organization Details Last Updated DateTime 12/27/2020 99.5 [degF] Cuca Strickland [facility], 12/27/2020 13:41:33 Date Recorded Body weight Heart rate Body temperature Systolic And Diastolic Provider Name and Address Organization Details Last Updated DateTime 04/03/2022 713844.95 g 93 /min 97.6 [degF] 114/83 mm[Hg] Ashley Wallace [facility], 04/03/2022 14:42:57 Social History None recorded. Functional Status None recorded. Mental Status None recorded. Family History Nothing Reported. Medical History No medical history recorded. Past Encounters Encounter ID Performer Location Encounter Start Date Encounter Closed Date Diagnosis/Indication Diagnosis SNOMED-CT Code Diagnosis ICD10 Code Diagnosis IMO Codes Diagnosis Note [id number] Yung Felipe DO Main Office [address] [place] [address] 12/27/2020 13:24:24 12/27/2020 14:00:19 Evaluation of semen fertility 351812662 N46.9 semen analysis [id number] Yung Felipe DO Main Office [address] [place] [address] 07/04/2021 14:47:56 07/04/2021 16:00:05 Evaluation of semen fertility 711882794 N46.9 semen analysis [id number] Yung Felipe DO Main Office [address] [facility] [place] [address] 05/31/2022 13:04:00 05/31/2022 13:50:01 Evaluation of semen fertility 897249857 N46.9 semen analysis + viability: analysis by Dr. Ruiz [id number] Yung Felipe DO Main Office [address] [facility] [place] [address] 10/22/2023 13:58:48 10/22/2023 14:31:18 Evaluation of semen fertility 166529562 N46.9 semen analysis + viability: analysis by [...] analysis Yung Felipe DO [address], [place], [address], [facility] FERTILITY AND GYNECOLOGY, 08/06/2021 23:24:22 2 text/html InfertilityReported by Patient Not Available Not Available Not Available 3 text/html semen analysis + viability [address], [place], [address], [facility], 05/31/2022 13:57:30 4 text/html semen analysis [address], [place], [address], [facility] GYNECOLOGY, 10/22/2023 16:29:00
--- OUTSIDE RECORDS SUMMARY | 2025-04-03 12:04 | XMS_ITS | Encounter Summary ---
Author Organization [facility] Address [address] [place] [address] Care Team Providers Care Auto Rental Supervisor Name Role Phone Enedina Mcguire APRN Primary Care Provider + Reason for Visit * Reason Onset Date Comments Med Refill 03/20/2025 Encounter Details Date Type Department Care Team ([facility] st Contact Info) Description 03/19/2025 Refill [facility] INTER[facility] [address] [place] [address] Enedina Mcguire APRN [address] [place] [address] Low testosterone in male Social History Tobacco Use Types Packs/Day Years Used Date Smoking Tobacco: Former Cigarettes 4 20 Passive Smoke Exposure: Past Smokeless Tobacco: Current Comments:MARIJUANA USE ABOUT 2X PER WEEK - reports no use 08-05-2024 Alcohol Use Standard Drinks/Week Comments Not Currently 0 (1 standard drink = 0.6 oz pure alcohol) 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 [facility] Utilities Answer Date Recorded In the past 12 months has [employer], gas, oil, or water [employer] threatened to shut off services in [...] Brief Depression Severity Measure Score 0 10/02/2022 [facility] - Occupational Stress [...] Telephone Encounter - Enedina Mcguire APRN - 03/20/2025 2:11 PM EST Updated refill of testosterone pharmacy. Kristofer reviewed and appropriate. Urine drug screen and controlled subs agreement form are currently up-to-date * Telephone Encounter - Maria Fernanda Evans MA - 03/20/2025 7:09 AM EST Last appointment: 02/17/2025 Next appointment: 05/18/2025 UDS: 11/20/2023 CSA: 02/17/2025 Last Refill: testosterone 02/24/2025 cyclobenzaprine filled by historical provider documented in this encounter Plan of Treatment Upcoming Encounters Date Type Department Care Team (Late st Contact Info) Description 05/18/2025 2:30 PM EST Office Visit [facility] INTER[facility] MEDICINE [address] [place] [address] Enedina Mcguire APRN [address] [place] [address] 05/21/2025 12:30 PM EST Office Visit [facility] PAIN [facility]NAGEMENT 3000 [facility] 330 [place] [address] Vazquez Christie PA-C [address]60 [facility] [address] [place] [address] documented as of this encounter Visit Diagnoses Diagnosis Low testosterone in male documented in this encounter Additional Health Concerns Assessment Noted Time PHQ-2 Depression Total Score: 1 12/31/19 24 3:25 PM EDT documented as of this encounter Care Teams Auto Rental Supervisor Relationship Specialty Start Date End Date Enedina Mcguire APRN [address] [place] [address] PCP - General Nurse Practitioner 10/27/24 documented as of this encounter
--- OUTSIDE RECORDS SUMMARY | 2025-04-03 12:04 | XMS_ITS | Encounter Summary ---
Author Organization [facility] Address [address] [place] [address] Care Team Providers Care Hematologist Oncologist Name Role Phone Enedina Mcguire NP Primary Care Provider + [phone] Maurene Pantoja RN Unavailable Unavail able Chris Orosco MD Unavailable [phone] Source Comments This information has been disclosed [...] release of HIV test results or diagnoses. [id number] Health Reason for Visit * Reason Comments Critical Lab Results Encounter Details Date Type Department Care Team (Late st Contact Info) Description 03/13/2025 Telephone [facility] Liver Transplant at [address] [address] Mitzy Gill MA Critical Lab Results Social History Tobacco Use Types Packs/Day Years Used Date Smoking Tobacco: Former Cigarettes Smokeless Tobacco: Current Alcohol Use Standard Drinks/Week Comments Yes 0 (1 standard drink = 0.6 oz pure alcohol) History of alcohol abuse, reports no use in 3 week- typically endorses use as 4 glasses of wine a days [facility] Utilities Answer Date Recorded In the past 12 months has [employer] electric, gas, oil, or water company threatened [...] Progress Notes * Maureen Pantoja RN - 03/16/2025 1:01 PM EST Images from the original note were not included. * Maureen Pantoja RN - 03/13/2025 8:33 AM EDT Hardcopy of urine culture results uploaded to Media tab. UA looks fine. Forwarded to Kidney Transplant Team for any necessary follow-up. Patient's standing liver transplant labs are being collected weekly, as are UA and urine culture. * Mitzy Gill MA - 03/13/2025 8:23 AM EDT Ashley from [facility] lab called to report critical lab [...] documented as of this encounter Care Teams Hematologist Oncologist Relationship Specialty Start Date End Date Enedina Mcguire NP [address] [place] [address] PCP - General Internal Medicine 10/05/24 Maureen Pantoja, ЮЛИЯ Txp Post Coordinator Transplant Hepatology 10/28/24 Chris Orosco MD [address] [facility] [[email or web address]] [address] [place] [address] Consulting Physician Transplant Hepatology 02/26/25 documented as of this encounter
--- OUTSIDE RECORDS SUMMARY | 2025-04-03 12:04 | XMS_ITS | Encounter Summary ---
[facility] Address [address] [place] [address] Care Team Providers Care Carton Marker Machine Name Role Phone Enedina Mcguire APRN Primary Care Provider + Encounter Details Date Type Department Care Team ([facility] st Contact Info) Description 02/23/2025 Results Follow-Up [facility] INTERNAL MEDICINE [address] [place] [address] Enedina Mcguire APRN [address] [place], [place] [phone] Social History Tobacco Use Types Packs/Day Years Used Date Smoking Tobacco: Former Cigarettes 4 20 Passive Smoke Exposure: Past Smokeless Tobacco: Current Comments:MARIJUANA USE ABOUT 2X PER WEEK - reports no use 08-05-2024 Alcohol Use Standard Drinks/Week Comments Not Currently 0 (1 standard drink = 0.6 oz pure alcohol) 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 [facility] Utilities Answer Date Recorded In the past 12 months has [employer], [employer], oil, or water [employer] threatened to shut off services in [...] 10/02/2022 [facility] of Occupat [...] Visit [facility] INTERNAL MEDICINE [address] [place] [address] Enedina Mcguire APRN [address] [place] [address] 05/21/2025 12:30 PM EST Office Visit [facility] PAIN MANAGEMENT 3000 [facility] 330 [place] [address] Vazquez Christie PA-C [address] [place] [address] [place] [address] documented as of this encounter Visit Diagnoses Not on filedocumented in this encounter Additional Health Concerns Assessment Noted Time PHQ-2 Depression Total Score: 1 12/31/19 24 3:25 PM EDT documented as of this encounter Care Teams Carton Marker Machine Relationship Specialty Start Date End Date Enedina Mcguire APRN [address] [place] [address] [phone] PCP - General Nurse Practitioner 10/27/24 documented as of this encounter
--- OUTSIDE RECORDS SUMMARY | 2025-04-03 12:04 | XMS_ITS | Encounter Summary ---
[facility] [address] [place] [address] Care Team Providers Care Sectionizer Name Role Phone Enedina Mcguire APRN Primary Care Provider + Encounter Details Date Type Department Care Team ([facility] st Contact Info) Description 02/17/2025 Telephone [facility] INTERNAL MEDICINE [address] [place] [address] Enedina Mcguire APRN [address] [place] [address] Social History Tobacco Use Types [...] Recorded In the past 12 months has [employer], [employer], oil, or water [employer] threatened to shut off services in your [...] Brief Depression Severity Measure Score 0 10/02/2022 [facility] - Occupational Stress Questionnaire Answer Date [...] GED or equivalent No 07/09/2024 Preferred Language Qatari 07/09/2024 PHQ-2 Answer Date Recorded Patient Health [...] Please reach out to Dr. Orosco at [facility] (Phone: tel: ) Patient stated that he [...] Visit [facility] INTERNAL MEDICINE [address] [place] [address] Enedina Mcguire APRN [address] [place] [address] 05/21/2025 12:30 PM EST Office Visit [facility] PAIN MANAGEMENT [address] [facility] 330 [place] [address] Vazquez Christie PA-C [address] [place] [address] [address] [place] [address] documented as of this encounter Visit Diagnoses Not on filedocumented in this encounter Additional Health Concerns Assessment Noted Time PHQ-2 Depression Total Score: 1 12/31/19 24 3:25 PM EDT documented as of this encounter Care Teams Sectionizer Relationship Specialty Start Date End Date Enedina Mcguire APRN [address] [place] [address] PCP - General Nurse Practitioner 10/27/24 documented as of this encounter
--- OUTSIDE RECORDS SUMMARY | 2025-04-03 12:04 | XMS_ITS | Encounter Summary ---
[facility] Organization [facility] Address [address] [place] [address] Care Team Providers Care Steel Erector Name Role Phone Enedina Mcguire APRN Primary Care Provider + Encounter Details Date Type Department Care Team (Late st Contact Info) Description 02/19/2025 Documentation [facility] [address] [address] Tye Song MD [address] [place] [id number] Social History Tobacco Use Types Packs/Day Years Used Date Smoking Tobacco: Former Cigarettes 4 20 Passive Smoke Exposure: Past Smokeless Tobacco: Current Comments:MARIJUANA USE ABOUT 2X PER WEEK - reports no use 08-05-2024 Alcohol Use Standard Drinks/Week Comments Not Currently 0 (1 standard drink = 0.6 oz pure alcohol) 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 [facility] Utilities Answer Date Recorded In the past 12 months has [employer], [employer], oil, or water [employer] threatened to shut off services in [...] Severity Measure Score 0 10/02/2022 [facility] - Occupational Stress Questionnaire Answer Date [...] Song MD - 02/19/2025 9:31 AM EDT [facility] [address] [place] [address] DATE OF SERVICE: 02/19/2025 PROCEDURE: Fluoroscopically-guided bilateral [...] schedule #2 medial branch block ADDITIONAL NOTES: [facility] Tye Song MD Codes: [id number] documented in this encounter Plan of Treatment Upcoming Encounters Date Type Department Care Team (Late st Contact Info) Description 05/18/2025 2:30 PM EST Office Visit [facility] [address] [place] [address] Enedina Mcguire, RAMBO [address] [place] [address] 05/21/2025 12:30 PM EST Office Visit [facility] [address] [address] Vazquez Christie PA-C 1760 [facility] [address] [place] [address] documented as of this encounter Visit Diagnoses Not on filedocumented in this encounter Additional Health Concerns Assessment Noted Time PHQ-2 Depression Total Score: 1 12/31/19 24 3:25 PM EDT documented as of this encounter Care Teams Steel Erector Relationship Specialty Start Date End Date Enedina Mcguire APRN [address] [place] [address] PCP - General Nurse Practitioner 10/27/24 documented as of this encounter
--- OUTSIDE RECORDS SUMMARY | 2025-04-03 12:04 | XMS_ITS | Encounter Summary ---
[facility] Address [address] [place] [address] Care Team Providers Care Assistant Family Teacher Name Role Phone Enedina Mcguire APRN Primary Care Provider + Reason for Visit * Reason Comments Med Refill Encounter Details Date Type Department Care Team (Late st Contact Info) Description 07/20/2022 Refill [facility] 1780 [facility] [address] [place] [address] Lj Tapia APRN [address] [place] [address] Secondary esophageal varices without bleeding Social History [...] or training? Not on file Preferred Language Ghanaian 07/03/2022 Sex and Gender Information Value Date [...] [facility] [address] [place] [phone] Enedina Mcguire APRN [address] [place], [place] [phone] 05/21/2025 12:30 PM EST Office Visit [facility] [address] [address] Vazquez Christie PA-C 1760 [facility] [address] [place] [address] documented as of this encounter Visit Diagnoses Diagnosis Secondary esophageal varices without bleeding documented in this encounter Additional Health Concerns Infection Onset Date Last Indicated Resolved Time COVID Screen (preop/placement) 07/28/2022 07/28/2022 07/29/2022 12:00 AM EDT documented as of this encounter Care Teams Assistant Family Teacher Relationship Specialty Start Date End Date Enedina Mcguire APRN [address] [place] [id number] PCP - General Nurse Practitioner 10/27/24 documented as of this encounter
--- OUTSIDE RECORDS SUMMARY | 2025-04-03 12:04 | XMS_ITS | Encounter Summary ---
Author Organization [facility] Address [address] [place] [address] Care Team Providers Care Offset Label Rewinder Name Role Phone Enedina Mcguire APRN Primary Care Provider + Reason for Visit * Reason Onset Date Comments SONG- INJECTION SCHEDULE 02/11/2025 Encounter Details Date Type Department Care Team (Late st Contact Info) Description 02/11/2025 Telephone [facility] [address] [address] Tye Song MD [address] [address] SONG- INJECTION SCHEDULE Social History Tobacco Use Types Packs/Day Years Used Date Smoking Tobacco: Former Cigarettes 4 20 Passive Smoke Exposure: Past Smokeless Tobacco: Current Comments:MARIJUANA USE ABOUT 2X PER WEEK - reports no use 08-05-2024 Alcohol Use Standard Drinks/Week Comments Not Currently 0 (1 standard drink = 0.6 oz pure alcohol) 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 [facility] Utilities Answer Date Recorded In the past 12 months has [employer], gas, oil, or water [employer] threatened to shut off services in your [...] Measure Score 0 10/02/2022 [facility] - Occupational Stress Questionnaire [...] JULIEN Relationship to Patient: SELF Phone Number: [phone] Reason For Call: PATIENT CALLING TO GET BACK ON THE SCHEDULE FOR HIS INJECTIONS documented in this encounter Plan of Treatment Upcoming Encounters Date Type Department Care Team (Late st Contact Info) Description 05/18/2025 2:30 PM EST Office Visit [facility] [address] [place] [phone] Enedina Mcguire, HYDRAULIC BULL RIVETER OPERATOR [address] [place] [address] 05/21/2025 12:30 PM EST Office Visit [facility] 3000 [facility] [address] [place] [address] Vazquez Christie PA-C 1760 [facility] [address] [place] [address] documented as of this encounter Visit Diagnoses Not on filedocumented in this encounter Additional Health Concerns Assessment Noted Time PHQ-2 Depression Total Score: 1 12/31/19 24 3:25 PM EDT documented as of this encounter Care Teams Offset Label Rewinder Relationship Specialty Start Date End Date Enedina Mcguire APRN [address] [place] [address] PCP - General Nurse Practitioner 10/27/24 documented as of this encounter
--- OUTSIDE RECORDS SUMMARY | 2025-04-03 12:04 | XMS_ITS | Encounter Summary ---
[facility] Address [address] [place] [address] Care Team Providers Care Automobile Carpets Molder Name Role Phone Enedina Mcguire APRN Primary Care Provider + Encounter Details Date Type Department Care Team ([facility] st Contact Info) Description 02/23/2025 Prior Authorization [facility] [address] [place] [address] Enedina Mcguire APRN [address] [place] [address] [id number] Social History Tobacco Use Types Packs/Day Years Used Date Smoking Tobacco: Former Cigarettes 4 20 Passive Smoke Exposure: Past Smokeless Tobacco: Current Comments:MARIJUANA USE ABOUT 2X PER WEEK - reports no use 08-05-2024 Alcohol Use Standard Drinks/Week Comments Not Currently 0 (1 standard drink = 0.6 oz pure alcohol) 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 [facility] Utilities Answer Date Recorded In the past 12 months has [employer], [employer], oil, or water [employer] threatened to shut off services in [...] Measure Score 0 10/02/2022 [facility] - Occupational [...] or equivalent No 07/09/[address] [place] 07/09/2024 PHQ-2 Answer Date Recorded Patient Health [...] MA - 02/24/2025 11:14 AM EDT Sent Digital Reasoning message to patient. * Telephone Encounter - [...] [facility] [address] [place] [address] Enedina Mcguire, SHAREPOINT APPLICATION ARCHITECT [address] [place] [id number] 05/21/2025 12:30 PM EST Office Visit [facility] 3000 [facility] [address] [place] [address] Vazquez Christie PA-C 1760 [facility] [address] [place] [address] documented as of this encounter Visit Diagnoses Not on filedocumented in this encounter Additional Health Concerns Assessment Noted Time PHQ-2 Depression Total Score: 1 12/31/19 24 3:25 PM EDT documented as of this encounter Care Teams Automobile Carpets Molder Relationship Specialty Start Date End Date Enedina Mcguire APRN [address] [place] [address] PCP - General Nurse Practitioner 10/27/24 documented as of this encounter
--- OUTSIDE RECORDS SUMMARY | 2025-04-03 12:05 | XMS_ITS | Encounter Summary ---
Author Organization [facility] Address [address] [place] [address] Care Team Providers Care Solid Plasterer Name Role Phone Enedina Mcguire NP Primary Care Provider + [phone] Maureen Pantoja RN Unavailable Unavail able Chris Orosco MD Unavailable [phone] Source Comments This information has been disclosed [...] release of HIV test results or diagnoses. [id number] Encounter Details Date Type Department Care Team (Late st Contact Info) Description 03/16/2025 Telephone [facility] at [address] [address] Lizeth Walden, RN Social History Tobacco Use Types Packs/Day Years Used Date Smoking Tobacco: Former Cigarettes Smokeless Tobacco: Current Alcohol Use Standard Drinks/Week Comments Yes 0 (1 standard drink = 0.6 oz pure alcohol) History of alcohol abuse, reports no use in 3 week- typically endorses use as 4 glasses of wine a days [facility] Utilities Answer Date Recorded In the past 12 months has [employer], gas, oil, or water [employer] threatened to [...] documented as of this encounter Care Teams Solid Plasterer Relationship Specialty Start Date End Date Enedina Mcguire NP [address] [place] [address] PCP - General Internal Medicine 10/05/24 Maureen Pantoja RN Txp Post Coordinator Transplant Hepatology 10/28/24 Chris Orosco MD [address] [place] [address] [address] [place] [address] Consulting Physician Transplant Hepatology 02/26/25 documented as of this encounter
--- OUTSIDE RECORDS SUMMARY | 2025-04-03 12:05 | XMS_ITS | Encounter Summary ---
Author Organization [facility] Address [address] [place] [address] Care Team Providers Care Flux Tube Attendant Name Role Phone Enedina Mcguire NP Primary Care Provider + [phone] Alicia Rankin RN Unavailable Unavail able Chris Orosco MD Unavailable [phone] Source Comments This information has been disclosed [...] release of HIV test results or diagnoses. [id number] Health Reason for Visit * Reason Comments Results Medication Dose Change Encounter Details Date Type Department Care Team (Late st Contact Info) Description 03/10/2025 Telephone [facility] Liver Transplant at [address] [address] Alicia Rankin, ЮЛИЯ Results; Medication Dose Change Social History Tobacco Use Types Packs/Day Years Used Date Smoking Tobacco: Former Cigarettes Smokeless Tobacco: Current Alcohol Use Standard Drinks/Week Comments Yes 0 (1 standard drink = 0.6 oz pure alcohol) History of alcohol abuse, reports no use in 3 week- typically endorses use as 4 glasses of wine a days [facility] Utilities Answer Date Recorded In the past 12 months has [employer] electric, gas, oil, or water company threatened [...] Progress Notes * Alicia Rankin RN - 03/16/2025 11:59 AM ESTAddended by: ALICIA RANKIN on: 03/16/2025 11:59 AM Modules accepted: Orders * Alicia Rankin RN - 03/16/2025 11:[address] Maza: Please decrease tacrolimus to 5 mg in AM and 6 mg in PM. Weekly labs. Dose updated. Patient notified via [employer]. * Alicia Rankin RN - 03/16/2025 9:47 AM EST FK 14.5 PEth still pending. Patient did repeat labs on 03/13 d/t low Mag level. Patient reports Mag 1.3 Awaiting hardcopy of results from 03/13. Will forward 03/10/25 results with FK level to Liver Txp Provider for further review and recommendations. * Alicia Rankin RN - 03/12/2025 8:04 AM EDT CMV negative. Post-prophylaxis monitoring complete. * Alicia Rankin RN - 03/10/2025 2:09 PM EDT Lab [...] Telephone Encounter - Alicia Rankin RN - 03/10/2025 3:50 PM EDT Mag level addressed by Kidney Txp Team, see separate encounter. Patient repeating labs on Sunday. documented in this encounter Plan of Treatment Not on file documented as of this encounter Visit Diagnoses Diagnosis Encounter for therapeutic drug monitoring S/P liver transplant ([facility]) Hypomagnesemia Disorders of magnesium metabolism Kidney transplant recipient Hypertension, unspecified type Gastroesophageal reflux disease, unspecified whether esophagitis present documented in this encounter Additional Health Concerns Infection Onset Date Last Indicated Resolved Time C. difficile 01/28/2025 01/28/2025 Assessment Noted Time PHQ-9 Depression Total Score: 2 12/11/19 25 9:00 AM EDT documented as of this encounter Care Teams Flux Tube Attendant Relationship Specialty Start Date End Date Enedina Mcguire NP [address] [place] [address] PCP - General Internal Medicine 10/05/24 Alicia Rankin, ЮЛИЯ Txp Post Coordinator Transplant Hepatology 10/28/24 Chris Orosco MD [address] [place] [address] [address] [place] [address] Consulting Physician Transplant Hepatology 02/26/25 documented as of this encounter
--- OUTSIDE RECORDS SUMMARY | 2025-04-03 12:05 | XMS_ITS | Encounter Summary ---
Author Organization [facility] Address [address] [place] [address] Care Team Providers Care Buhr Dresser Name Role Phone Enedina Mcguire NP Primary Care Provider [phone] Maureen Pantoja RN Unavailable Unavail able Source [...] release of HIV test results or diagnoses. [id number] Health Encounter Details Date Type Department Care Team (Late st Contact Info) Description 01/20/2025 Chart Note [facility] at [address] [place] [address] Marlene Ro MA 01/20 Labs entered from [facility] Social History Tobacco Use Types Packs/Day Years Used Date Smoking Tobacco: Former Cigarettes Smokeless Tobacco: Current Alcohol Use Standard Drinks/Week Comments Yes 0 (1 standard drink = 0.6 oz pure alcohol) History of alcohol abuse, reports no use in 3 week- typically endorses use as 4 glasses of wine a days [facility] Utilities Answer Date Recorded In the past 12 months has [employer], gas, oil, or water company threatened to [...] as of this encounter Functional Status * Peripheral Vascular Question Answer Date of Assessment Author Peripheral Vascular (WDL) WDL 01/30/2025 9:45 AM EDT Elba Vargas RN * AUDIT-C Score Answer Date of Assessment [...] were not included. 01/20 Labs entered from [facility] documented in this encounter [...] Tacrolimus level (01/20/2025 12:03 PM EDT) Pathologist [facility] Tacrolimus Lvl 11.3 6 - 15 ng/mL Whole Blood [facility] Provider LAB BLOOD ORDERABLES Denisse l Result * (ABNORMAL) Magnesium (01/20/2025 12:03 PM EDT) [facility] Magnesium 1.1(A) 1.6 - 2.4 mg/dL Plasma Narrative Resulting Agency Comment [facility] Result [facility] Provider LAB BLOOD ORDERABLES Denisse l Result * (ABNORMAL) Renal Function Panel w/o EGFR (01/20/2025 12:03 PM EDT) Pathologist [facility] Glucose 101 BUN 14 CO2 23(A) 13 - 22 mmol/L Creatinine 1.10 Potassium 3.8 Sodium 141 Chloride 106 Phosphorus 4.2 2.5 - 4.9 mg/dL Calcium 10.2 EGFR 74 mg/dL Albumin 4.9 3.5 - 5.0 g/dL Blood Narrative Resulting Agency Comment [facility] Result [facility] Provider LAB BLOOD ORDERABLES Denisse l Result * Creatinine, urine, random (01/20/2025 12:03 PM EDT) Pathologist [facility] Creatinine, Urine 78 Urine Narrative Resulting Agency Comment [facility] Result [facility] Provider URINE ORDERABLES Final Re sult * (ABNORMAL) Urinalysis w/Rfl to Microscopic (01/20/2025 12:03 PM EDT) Glucose, UA Negative Negative Ketones, UA Negative Negative Blood, UA Negative Negative Bilirubin, UA Negative Negative Urobilinogen, UA Normal Normal Protein, UA Trace(A) Negative Nitrite, UA Negative Negative pH, UA 5.5 4.5 - 8.0 Specific [place], UA 1.020 1.005 - 1.030 Clarity, UA Clear Clear Color, UA Yellow Light Yellow, Yellow Urine Narrative Resulting Agency Comment [facility] Provider URINE ORDERABLES Final Re sult * [...] 2.2 10^3/mL Blood Narrative Resulting Agency Comment [facility] Provider LAB BLOOD ORDERABLES Denisse l Result * Urine Protein, Tot, Random (w/o Creat) (01/20/2025 12:03 PM EDT) Total Protein, Ur 25.0 Urine Narrative Resulting Agency Comment [facility] Provider URINE ORDERABLES Final Re sult * Hepatic Function Panel (01/20/2025 12:03 PM EDT) Bilirubin, Direct 0.2 Bilirubin, Indirect 0.6 Alkaline Phosphatase 52 ALT 20 AST 28 Total Bilirubin 0.8 Total Protein 7.1 Plasma Narrative Resulting Agency Comment [facility] us Historical Provider LAB BLOOD ORDERABLES Denisse [...] documented as of this encounter Care Teams Buhr Dresser Relationship Specialty Start Date End Date Enedina Mcguire NP [address] [place] [address] PCP - General Internal Medicine 10/05/24 Maureen Pantoja, RN Txp Post Coordinator Transplant Hepatology 10/28/24 documented as of this encounter
--- OUTSIDE RECORDS SUMMARY | 2025-04-03 12:05 | XMS_ITS | Encounter Summary ---
Author Organization [facility] Address [address] [place] [address] Care Team Providers Care Information Systems Audit Manager Name Role Phone Enedina Mcguier NP Primary Care Provider + [phone] Maureen Pantoja RN Unavailable Unavail able Chris Orosco MD Unavailable [phone] Source Comments This information has been disclosed [...] release of HIV test results or diagnoses. [id number] Encounter Details Date Type Department Care Team (Late st Contact Info) Description 03/04/2025 Chart Note [facility] Liver Transplant at [address] [address] Marlene Ro MA 03/04 Labs entered from [facility] Social History Tobacco Use Types Packs/Day Years Used Date Smoking Tobacco: Former Cigarettes Smokeless Tobacco: Current Alcohol Use Standard Drinks/Week Comments Yes 0 (1 standard drink = 0.6 oz pure alcohol) History of alcohol abuse, reports no use in 3 week- typically endorses use as 4 glasses of wine a days [facility] Utilities Answer Date Recorded In the past 12 months has [employer] electric, gas, oil, or water company threatened [...] were not included. 03/04 Labs entered from [facility] documented in this encounter Plan [...] Phosphatidylethanol (PEth) Positive 587 Whole Blood Result [facility] LAB BLOOD ORDERABLES Denisse l Result * Tacrolimus level (03/04/2025 11:29 AM EDT) Tacrolimus Lvl 14.6 6 - 15 ng/mL Whole Blood Result [facility] LAB BLOOD ORDERABLES Denisse l Result * Urine culture (03/04/2025 11:29 AM EDT) Pathologist [facility] Urine Culture, Comprehensive no growth after 48 hours URINE SPECIMEN / Unknown Result [facility] MICROBIOLOGY - GENERAL OR DERABLES Final Result * (ABNORMAL) Magnesium (03/04/2025 11:29 AM EDT) Pathologist [facility] Magnesium 1.4(A) 1.6 - 2.4 mg/dL Plasma Narrative Resulting Agency Comment [facility] Result [facility], [...] g/dL Blood Narrative Resulting Agency Comment [facility] Result [facility] LAB BLOOD ORDERABLES Denisse l Result * Creatinine, urine, random (03/04/2025 11:29 AM EDT) Creatinine, Urine 111 Urine Narrative Resulting Agency Comment [facility] Provider URINE ORDERABLES Final Re sult * (ABNORMAL) Urinalysis w/Rfl to Microscopic (03/04/2025 11:29 AM EDT) Pathologist [facility] Glucose, UA Negative Negative Ketones, UA Negative Negative Blood, UA Negative Negative Bilirubin, UA Negative Negative Urobilinogen, UA Normal Normal Protein, UA Trace(A) Negative Nitrite, UA Negative Negative pH, UA 5.5 4.5 - 8.0 Specific [place], UA 1.020 1.005 - 1.030 Clarity, UA Clear Clear Color, UA Yellow Light Yellow, Yellow Urine Narrative Resulting Agency Comment [facility] Result [facility] Provider URINE ORDERABLES Final Re sult * Vitamin D 25 hydroxy (03/04/2025 11:29 AM EDT) Pathologist [facility] Vit D, 25-Hydroxy 38.4 Serum Narrative Resulting Agency Comment [facility] Provider LAB BLOOD ORDERABLES Denisse l Result * (ABNORMAL) CBC and differential (03/04/2025 11:29 AM EDT) Pathologist [facility] Hemoglobin 13.0(A) 13.5 - 17.5 g/dL Hematocrit [...] 7.7 10^3/mL Blood Narrative Resulting Agency Comment [facility] Provider LAB BLOOD ORDERABLES Denisse l Result * Urine Protein, Tot, Random (w/o Creat) (03/04/2025 11:29 AM EDT) Total Protein, Ur 27.0 Urine Narrative Resulting Agency Comment [facility] Provider URINE ORDERABLES Final Re sult * Hepatic Function Panel (03/04/2025 11:29 AM EDT) Bilirubin, Direct 0.2 Bilirubin, Indirect 0.7 Alkaline Phosphatase 155 ALT 39 AST 47 Total Bilirubin 0.9 Total Protein 7.5 Plasma Narrative Resulting Agency Comment [facility] Result [facility] Provider LAB BLOOD ORDERABLES Denisse l Result documented in this encounter Visit Diagnoses Not on filedocumented in this encounter Additional Health Concerns Infection Onset Date Last Indicated Resolved Time C. difficile 01/28/2025 01/28/2025 Assessment Noted Time PHQ-9 Depression Total Score: 2 12/11/19 25 9:00 AM EDT documented as of this encounter Care Teams Information Systems Audit Manager Relationship Specialty Start Date End Date Enedina Mcguire NP [address] [place] [address] PCP - General Internal Medicine 10/05/24 Maureen Pantoja, RN Txp Post Coordinator Transplant Hepatology 10/28/24 Chris Orosco MD [address] [place] [address] [address] [place] [address] Consulting Physician Transplant Hepatology 02/26/25 documented as of this encounter
--- OUTSIDE RECORDS SUMMARY | 2025-04-03 12:05 | XMS_ITS | Encounter Summary ---
Author Organization [facility] Address [address] [place] [address] Care Team Providers Care Flexographic Press Helper Name Role Phone Enedina Mcguire NP Primary Care Provider + [phone] Maureen Pantoja RN Unavailable Unavail able Chris Orosco MD Unavailable [phone] Source Comments This information has been disclosed [...] release of HIV test results or diagnoses. [id number] Health Reason for Visit * Reason Comments Critical Lab Results Encounter Details Date Type Department Care Team (Late st Contact Info) Description 03/10/2025 Telephone [facility] Liver Transplant at [address] [place] [address] Marisela Martinez MA Critical Lab Results Social History Tobacco Use Types Packs/Day Years Used Date Smoking Tobacco: Former Cigarettes Smokeless Tobacco: Current Alcohol Use Standard Drinks/Week Comments Yes 0 (1 standard drink = 0.6 oz pure alcohol) History of alcohol abuse, reports no use in 3 week- typically endorses use as 4 glasses of wine a days [facility] Utilities Answer Date Recorded In the past 12 months has [employer] electric, gas, oil, or water company threatened [...] EDT Shivani called from pts outpt lab [facility] to report that pt has a [...] documented as of this encounter Care Teams Flexographic Press Helper Relationship Specialty Start Date End Date Enedina Mcguire NP [address] [place] [address] PCP - General Internal Medicine 10/05/24 Maureen Pantoja, ЮЛИЯ Txp Post Coordinator Transplant Hepatology 10/28/24 Chris Orosco MD [address] [place] [address] [address] [place] [address] Consulting Physician Transplant Hepatology 02/26/25 documented as of this encounter
--- OUTSIDE RECORDS SUMMARY | 2025-04-03 12:05 | XMS_ITS | Encounter Summary ---
Author Organization [facility] Address [address] [place] [address] Care Team Providers Care Hospice Educator Name Role Phone Enedina Mcguire NP Primary Care Provider + [phone] Maureen Pantoja RN Unavailable Unavail able Chris Orosco MD Unavailable [phone] Source Comments This information has been disclosed [...] release of HIV test results or diagnoses. [id number] Health Encounter Details Date Type Department Care Team (Late st Contact Info) Description 03/10/2025 Chart Note [facility] Liver Transplant at [address] [address] Marlene Ro MA 03/10 Labs entered from [facility] Lab Social History Tobacco Use Types Packs/Day Years Used Date Smoking Tobacco: Former Cigarettes Smokeless Tobacco: Current Alcohol Use Standard Drinks/Week Comments Yes 0 (1 standard drink = 0.6 oz pure alcohol) History of alcohol abuse, reports no use in 3 week- typically endorses use as 4 glasses of wine a days [facility] Utilities Answer Date Recorded In the past 12 months has [employer] electric, gas, oil, or water company threatened [...] were not included. 03/10 Labs entered from [facility] documented in this encounter Plan of Treatment [...] Phosphatidylethanol (PEth) Positive 413 Whole Blood Result [facility] Provider MD LAB BLOOD ORDERABLES Denisse l Result * Tacrolimus level (03/10/2025 9:29 AM EDT) Tacrolimus Lvl 14.5 6 - 15 ng/mL Whole Blood Result [facility] MD LAB BLOOD ORDERABLES Denisse l Result * Cytomegalovirus DNA, Quant, RT PCR (03/10/2025 9:29 AM EDT) CMV Quant DNA PCR (Plasma) Negative Plasma Result [facility] MD LAB BLOOD ORDERABLES Denisse l Result * Creatinine, urine, random (03/10/2025 9:29 AM EDT) Creatinine, Urine 94 Urine Narrative Resulting Agency Comment [facility] Lab Result [facility] Provider URINE ORDERABLES Final Re sult * Urinalysis w/Rfl to Microscopic (03/10/2025 9:29 AM EDT) Pathologist [facility] Glucose, UA Negative Negative Ketones, UA Negative Negative Blood, UA Negative Negative Bilirubin, UA Negative Negative Urobilinogen, UA Normal Normal Protein, UA Negative Negative Nitrite, UA Negative Negative pH, UA 5.5 4.5 - 8.0 Specific [place], UA 1.015 1.005 - 1.030 Clarity, UA Clear Clear Color, UA Yellow Light Yellow, Yellow Urine Narrative Resulting Agency Comment [facility] Lab Result [facility] Provider URINE ORDERABLES Final Re sult * Urine Protein, Tot, Random (w/o Creat) (03/10/2025 9:29 AM EDT) Total Protein, Ur 21.0 Urine Narrative Resulting Agency Comment [facility] Lab [facility] Provider MD URINE ORDERABLES Final Re sult * (ABNORMAL) Magnesium (03/10/2025 9:29 AM EDT) Pathologist [facility] Magnesium 0.9(A) 1.6 - 2.4 mg/dL Plasma Narrative Resulting Agency Comment [facility] Lab Result [facility] Provider MD LAB BLOOD ORDERABLES Denisse l Result * Hepatic Function Panel (03/10/2025 9:29 AM EDT) Pathologist [facility] Bilirubin, Direct 0.2 Bilirubin, Indirect 0.5 Alkaline Phosphatase 102 ALT 28 AST 26 Total Bilirubin 0.7 Total Protein 6.7 Plasma Narrative Resulting Agency Comment [facility] Lab Result [facility] LAB BLOOD ORDERABLES Denisse l Result * (ABNORMAL) Renal Function Panel w/o EGFR (03/10/2025 9:29 AM EDT) Pathologist [facility] Glucose 111 BUN 13 CO2 28(A) 13 - 22 mmol/L Creatinine 1.30 Potassium 3.9 Sodium 138 Chloride 100 Phosphorus 5.0(A) 2.5 - 4.9 mg/dL Calcium 9.2 EGFR 61 mg/dL Albumin 4.5 3.5 - 5.0 g/dL Blood Narrative Resulting Agency Comment [facility] Lab Result [facility] LAB BLOOD ORDERABLES Denisse l [...] 5.6 10^3/mL Blood Narrative Resulting Agency Comment [facility] Lab us Historical Provider LAB BLOOD ORDERABLES Denisse l Result documented in this encounter Visit Diagnoses Not on filedocumented in this encounter Additional Health Concerns Infection Onset Date Last Indicated Resolved Time C. difficile 01/28/2025 01/28/2025 Assessment Noted Time PHQ-9 Depression Total Score: 2 12/11/19 9:00 AM EDT documented as of this encounter Care Teams Hospice Educator Relationship Specialty Start Date End Date Enedina Mcguire NP [address] [place] [address] PCP - General Internal Medicine 10/05/24 Maureen Pantoja, ЮЛИЯ Txp Post Coordinator Transplant Hepatology 10/28/24 Chris Orosco MD [address] [place] [address] [address] [place] [address] Consulting Physician Transplant Hepatology 02/26/25 documented as of this encounter
--- OUTSIDE RECORDS SUMMARY | 2025-04-03 12:05 | XMS_ITS | Encounter Summary ---
Author Organization [facility] Address [address] [place] [address] Care Team Providers Care Perfume And Toilet Water Maker Name Role Phone Enedina Mcguire NP Primary Care Provider + [phone] Maureen Pantoja RN Unavailable Unavail able Chris Orosco MD Unavailable [phone] Source Comments This information has been disclosed [...] release of HIV test results or diagnoses. [id number] [facility] Encounter Details Date Type Department Care Team (Late st Contact Info) Description 03/10/2025 Telephone [facility] Liver Transplant at [address] [address] Marlene Ro MA Social History Tobacco Use Types Packs/Day Years Used Date Smoking Tobacco: Former Cigarettes Smokeless Tobacco: Current Alcohol Use Standard Drinks/Week Comments Yes 0 (1 standard drink = 0.6 oz pure alcohol) History of alcohol abuse, reports no use in 3 week- typically endorses use as 4 glasses of wine a days [facility] Utilities Answer Date Recorded In the past 12 months has [employer], gas, oil, or water [employer] threatened to shut off services in your [...] 03/10/2025 12:54 PM EDT Outgoing call to [facility] Lab to verify if a CMV [...] as of this encounter Care Teams Perfume And Toilet Water Maker Relationship Specialty Start Date End Date Enedina Mcguire NP [address] [place] [address] PCP - General Internal Medicine 10/05/24 Maureen Pantoja, ЮЛИЯ Txp Post Coordinator Transplant Hepatology 10/28/24 Chris Orosco MD [address] [place] [address] [address] [place] [address] Consulting Physician Transplant Hepatology 02/26/25 documented as of this encounter
--- OUTSIDE RECORDS SUMMARY | 2025-04-03 12:05 | XMS_ITS | Encounter Summary ---
Author Organization [facility] Address [address] [place] [address] Care Team Providers Care Heavy Equipment Supervisor Name Role Phone Enedina Mcguire NP Primary Care Provider + [phone] Maureen Pantoja RN Unavailable Unavail able Chris Orosco MD Unavailable [phone] Source Comments This information has been disclosed [...] release of HIV test results or diagnoses. [id number] [facility] Encounter Details Date Type Department Care Team (Late st Contact Info) Description 03/16/2025 Chart Note [facility] Liver Transplant at [place] [id number] [facility] [address] [place] [place] [address] Marlene Ro MA Magnesium Level from 03/13 Social History Tobacco Use Types Packs/Day Years Used Date Smoking Tobacco: Former Cigarettes Smokeless Tobacco: Current Alcohol Use Standard Drinks/Week Comments Yes 0 (1 standard drink = 0.6 oz pure alcohol) History of alcohol abuse, reports no use in 3 week- typically endorses use as 4 glasses of wine a days [facility] Utilities Answer Date Recorded In the past 12 months has [employer] electric, gas, oil, or water company threatened [...] of this encounter Care Teams Heavy Equipment Supervisor Relationship Specialty Start Date End Date Enedina Mcguire NP [address] [place] [address] PCP - General Internal Medicine 10/05/24 Maureen Pantoja, ЮЛИЯ Txp Post Coordinator Transplant Hepatology 10/28/24 Chris Orosco MD [address] [place] [address] [address] [place] [address] Consulting Physician Transplant Hepatology 02/26/25 documented as of this encounter
--- OUTSIDE RECORDS SUMMARY | 2025-04-03 12:05 | XMS_ITS | Encounter Summary ---
Author Organization [facility] Address [address] [place] [address] Care Team Providers Care Sas Etl Developer Name Role Phone Enedina Mcguire NP Primary Care Provider + [phone] Maureen Pantoja RN Unavailable Unavail able Chris Orosco MD Unavailable [phone] Source Comments This information has been disclosed [...] release of HIV test results or diagnoses. [id number] Health Reason for Visit * Reason Comments Results Encounter Details Date Type Department Care Team (Late st Contact Info) Description 03/06/2025 Telephone [facility] Liver Transplant at [address] [address] Maureen Pantoja, ЮЛИЯ Results Social History Tobacco Use Types Packs/Day Years Used Date Smoking Tobacco: Former Cigarettes Smokeless Tobacco: Current Alcohol Use Standard Drinks/Week Comments Yes 0 (1 standard drink = 0.6 oz pure alcohol) History of alcohol abuse, reports no use in 3 week- typically endorses use as 4 glasses of wine a days [facility] Utilities Answer Date Recorded In the past 12 months has [employer], gas, oil, or water company threatened to [...] documented as of this encounter Care Teams Sas Etl Developer Relationship Specialty Start Date End Date Enedina Mcguire NP [address] [place] [address] PCP - General Internal Medicine 10/05/24 Maureen Pantoja, ЮЛИЯ Txp Post Coordinator Transplant Hepatology 10/28/24 Chris Orosco MD [address] [facility] [address] [place] [address] Consulting Physician Transplant Hepatology 02/26/25 documented as of this encounter
--- OUTSIDE RECORDS SUMMARY | 2025-04-03 12:05 | XMS_ITS | Clinical Summary ---
Author Organization [facility] Address [address] [place] [address] Care Team Providers Care Ear Nose Throat Physician Name Role Phone Lj Tapia Rohini RICKS Unavailable [phone] Enedina Mcguire APRN Primary Care Provider + [...] do you attend [facility] or buddhist services? Patient unable to answer 07/14/2024 Do you belong to any clubs o r organizations such as jewish groups, unions, fraternal or athletic groups, or [...] Patient Health Questionnaire-2 Score 2 09/29/2024 [facility] [...] drink first t deborah in the morning (EYE-FOREST MANAGEMENT PROFESSOR) to steady your nerves or to get rid of a hangover? 0 07/19/2024 CAGE Questionnaire Score 2 025 Utilities Answer Date Recorded In the past 12 months has th [employer], gas, oil, or water company threatened to [...] 2 - 13+ 2-dose series) 10/11/2010 09/13/2010 [id number] Vaccine (4 - 2024- season) 2025 03/17/2021, [...] this topic Medical Devices Implanted Type Area Home Day Care Provider Device Identifier Shelf Expiration Date Model / Serial / Lot Concerto [place] Coil-07/03/2022 Implanted:06/15 by Timmy Brunner MD (Quantity not on file) Coil Abdomen Description:Multiple Coil Co ncerto Pgla [place] Detach COILS implanted on 07/03/2022 by Timmy Brunner MD at [facility]--info can be found in Care Everywhere for [facility] as of 11/15/23 Dona Coil-07/03/2022 Implanted:06/15 by Timmy Brunner MD (Quantity not on file) Coil Abdomen [employer] Description:Coil Emb Dona 3.7/Implanted: Qty: 1 on 07/03/2022 by Timmy Brunner MD at [facility] Plate Plate N/A: Neck Plug Vasc Anton Emb Amplatzer Implanted:06/15 by Timmy Brunner MD (Quantity not on file) Plug Other Vein / / [id number] Description:Plug Vasc Anton Em b Ampltz .027 [id number] - [id number] Implanted: Qty: 1 on 07/03/2022 by Timmy Brunner MD at [facility] Stent Gastro Panc 5fr 5cm - [id number] Implanted:Qty: 1 on 11/20/2023 by Devang Mcghee, RN at [facility] Pancreas [employer]-[id number] 08/13/2026 [id number] / / [id number] Procedures Procedure Name Priority Date/Time Associated Diagnosis [...] Reactive Non Reactive 07/14/2024 5:31 PM EST [facility] Comment:Screening for HIV 1 & 2 antibodies, and P24 antigen is NONREACTIVE. No confirmatory testing is required. Blood Venous blood specimen / Unknown Venipuncture / Unknown 07/14/2024 4:31 PM EST 07/14/2024 4:56 PM EST Laureano Salinas APRN, [facility] BLOOD ORDERA BLES Final Result Performing Organization Address City[facility] Co de Phone Number [facility] [address] [place] [address] * Hepatitis C Antibody (07/14/2024 4:31 PM EST) [facility] Signature Hepatitis C Antibody Negative Negative 07/14/2024 5:27 PM EST [facility] Blood Venous blood specimen / Unknown Venipuncture / Unknown 07/14/2024 4:31 PM EST 07/14/2024 4:54 PM EST Laureano Salinas APRN, [facility] BLOOD ORDERA BLES Final Result Performing Organization Address City/[facility] de Phone Number [facility] [address] [place] [address] from Last 3 Months or Most Recently Relevant to Health Maintenance Insurance [employer] Advance Directives * Full Code (Latest Code Status on File) Date Activated Date Inactivated Comments 07/11/2024 11:04 PM 07/23/2024 6:27 PM Question Answer Comments Patient has decision-making capacity? Yes * Full Code Date Activated Date Inactivated Comments 11/14/2023 10:15 PM 11/27/2023 9:08 PM Question Answer Comments Patient has decision-making capacity? Yes Care Teams Ear Nose Throat Physician Relationship Specialty Start Date End Date Enedina Mcguire APRN [address] [place] [address] PCP - General 12/04/22 Lj Tapia APRN [address] [place] [address] Referring Physician Gastroenterology 07/18/22
--- OUTSIDE RECORDS SUMMARY | 2025-04-03 12:05 | XMS_ITS | Clinical Summary ---
Author Organization [facility] Address [address] [place] [address] Care Team Providers Care Header Dock Name Role Phone Enedina Mcguire APRN Primary [...] directed by provider Daily. 07/30/19 25 Active FLUoxetine (PROzac) 20 MG capsule [...] Take 1 tablet by mouth Daily. Active gabapentin (NEURONTIN) 300 MG capsule Take 1 capsule by mouth 3 (Three) Times a Day. 02/13/20 25 Active MAGNESIUM CHLORIDE PO Take by mouth. Activ e NIFEdipine XL (PROCARDIA XL) 30 MG 24 hr tablet Take 1 tablet by mouth Daily. 02/16/20 25 Active vitamin D (ERGOCALCIFEROL) 1.25 MG (29388 UT) capsule capsuleIndications :Vitamin D deficiency Take 1 capsule by mouth 1 (One) Time Per Week. 12 capsule 1 02/18/20 25 Active Syringe 25G X 5/8 3 ML miscIndications:Lo w testosterone in male Use 1 each 1 (One) Time Per Week. 12 each 1 02/24/20 25 Active mycophenolate (CELLCEPT) 250 MG capsule Take 1 capsule by mouth 2 (Two) Times a Day. 02/27/20 25 Active famotidine (PEPCID) 20 MG tablet Take 1 tablet by mouth 2 (Two) Times a Day. 02/27/20 25 Active levothyroxine (SYNTHROID, LEVOTHROID) 75 MCG tabletIndications: Acquired hypothyroidism Take 1 tablet by mouth Daily. 90 tablet 03/16/20 25 Active cyclobenzaprine (FLEXERIL) 5 MG tablet Take 1 tablet by mouth 3 (Three) Times a Day As Needed for Muscle Spasms. 30 tablet 1 03/20/20 25 Active Testosterone Cypionate 200 MG/ML kitIndications:Low testosterone in male Inject 1 mL into the appropriate muscle as directed by prescriber 1 (One) Time Per Week. 4 kit 03/20/20 25 Active levothyroxine (SYNTHROID, LEVOTHROID) 75 MCG tabletIndications: Acquired hypothyroidism Take 1 tablet by mouth Daily. 30 tablet 10/21/19 25 025 Discontin ued(Reord er) cyclobenzaprine (FLEXERIL) 5 MG tablet Take 1 tablet by mouth 3 (Three) Times a Day. 01/31/20 25 025 Discontin ued(Reord er) Testosterone Cypionate 200 MG/ML kitIndications:Low testosterone in male Inject 1 mL into the appropriate muscle as directed by prescriber 1 (One) Time Per Week. 4 kit 02/25/20 25 025 Discontin ued(Reord er) Active Problems Problem [...] Date Type Department Care Team Description 03/19/2025 11:30 AM EST Outside Facility Service [facility] [address] [address] Tye Song MD 03/19/2025 Refill [facility] [address] [place] [phone] Enedina Mcguire APRN Low testosterone in male 03/19/2025 Documentation [facility] [address] [facility] [address] Tye Song MD 03/16/2025 Refill [facility] [address] [place] [phone] Enedina Mcguire APRN Erectile dysfunction, unspecified erectile dysfunction type 03/15/2025 Refill [facility] [address] [place] [phone] Shayla, Enedina G, JUNIOR WEB DEVELOPER Acquired hypothyroidism 03/03/2025 1:45 PM EDT Office Visit [facility] [address] [facility] [address] [place] [address] Vazquez Christie PA-C Occipital neuralgia of right side (Primary Dx); Cervical spondylosis without myelopathy; Cervical pain (neck); Long-term use of high-risk medication; Cervical radiculopathy; Therapeutic drug monitoring; Chronic pain syndrome 03/03/2025 Travel 03/02/2025 Telephone [facility] [address] [address] Georgina Rainey MA 02/23/2025 Prior Authorization [facility] [address] [place] [phone] Enedina Mcguire, JUNIOR WEB DEVELOPER 02/23/2025 Results Follow-Up [facility] [address] [place] [phone] Enedina Mcguire, JUNIOR WEB DEVELOPER 02/20/2025 Telephone [facility] [address] [place] [phone] Enedina Mcguire, JUNIOR WEB DEVELOPER Results 02/20/2025 Telephone [facility] [address] [address] Georgina Rainey MA 02/19/2025 7:45 AM EDT Outside Facility Service [facility] [address] [address] Tye Song MD 02/19/2025 Documentation [facility] [address] [address] Tye Song MD 02/17/2025 3:15 PM EDT Office Visit [facility] [address] [place] [phone] Enedina Mcguire, JUNIOR WEB DEVELOPER Encounter for follow-up (Primary Dx); Kidney transplant recipient; Liver transplant recipient; Vitamin D deficiency; Low testosterone in male; History of systemic steroid therapy 02/17/2025 Telephone [facility] [address] [place] [phone] Enedina Mcguire APRN 02/17/2025 Travel 02/11/2025 Telephone [facility] [address] [facility] [address] [place] [address] Tye Song MD [facility]- INJECTION SCHEDULE 01/08/2025 Telephone [facility] [address] [facility] [address] [place] [address] Vazquez Christie PA-C Appointment 01/01/2025 2:15 PM EDT Office Visit [facility] [address] [facility] [address] [place] [phone] Vazquez Christie PA-C Cervical radiculopathy (Primary Dx); [...] Anderson Hyperlipidemia Father Richa Anderson Hypertension Father Pat Justin Osteoarthritis Father Richa Anderson Alcohol abuse Maternal [...] the past 12 months has th e [employer], [employer], oil, or water [employer] threatened to shut off services in your [...] Brief Depression Severity Measure Score 0 10/02/2022 [facility] of Occupat ional Health - Occupational Stress [...] PM EST Office Visit [facility] [address] [place] [address] Enedina Mcguire, JUNIOR WEB DEVELOPER [address] [place] [address] 05/21/2025 12:30 PM EST Office Visit [facility] [address] [facility] [address] [place] [address] Vazquez Christie PA-C [address] [facility] [address] [place], [place] [id number] Health Maintenance Due Date Last Done Comments [...] 0-49 Discontinued Medical Devices Implanted Type Area Remote Sensing Technician Device Identifier Shelf Expiration Date Model / Serial / Lot Coil Concerto Pgla Hel Detach Sys 10mm 30cm - [id number] Implanted:Qty: 1 on 07/03/2022 by Timmy Brunner MD at [facility] Implant Left: Vein EV3 A [employer] [id number] / / [id number] Description:Coil is in the s hort gastric vein Coil Concerto Nyl Dolton Detach Sys 10mm 30cm - [id number] Implanted:Qty: 1 on 07/03/2022 by Timmy Brunner MD at [facility] Implant Left: Vein EV3 A [employer] [id number] / / [id number] Description:Short gastric ve in Coil Concerto Nyl Dolton Detach Sys 10mm 30cm - [id number] Implanted:Qty: 1 on 07/03/2022 by Timmy Brunner MD at [facility] Implant Left: Vein EV3 A [employer] [id number] / / [id number] Description:Short gasrtic ve in Coil Concerto Nyl Dolton Detach Sys 10mm 30cm - [id number] Implanted:Qty: 1 on 07/03/2022 by Timmy Brunner MD at [facility] Implant Left: Vein EV3 A [employer] [id number] / / [id number] Description:Short gastric ve in Coil Concerto Nyl Dolton Detach Sys 8mm 30cm - [id number] Implanted:Qty: 1 on 07/03/2022 by Timmy Brunner MD at [facility] Implant Left: Vein EV3 A [employer] [id number] / / [id number] Description:Short gastric ve in Coil Concerto Nyl Dolton Detach Sys 8mm 30cm - [id number] Implanted:Qty: 1 on 07/03/2022 by Timmy Brunner MD at [facility] Implant Left: Vein EV3 A [employer] [id number] / / [id number] Description:Short gastric ve in Sys Del Liq Emb Trufill Nbca 1g Vl - [id number] Implanted:Qty: 1 on 07/03/2022 by Timmy Brunner MD at [facility] Implant Left: Vein [facility] [id number] / / [id number] Description:Short gastric ve in Plug Vasc Anton Emb Ampltz .027 9rr7u97dh - [id number] Implanted:Qty: 1 on 07/03/2022 by Timmy Brunner MD at [facility] Implant Left: Vein [employer] [id number] / / [id number] Description:Coronary vein Coil Concerto Nyl Dolton Detach Sys 8mm 30cm - [id number] Implanted:Qty: 1 on 07/03/2022 by Timmy Brunner MD at [facility] Implant Left: Vein EV3 A [employer] [id number] / / [id number] Description:CORONARY VEIN Gelatin Emb Embocube 5.02mm 50mg Red - [id number] Implanted:Qty: 1 on 07/03/2022 by Timmy Brunner MD at [facility] Implant Left: Vein [employer] [id number] / / [id number] Description:SHORT GASTRIC VE IN Coil Emb Dona 3.7/Lp .035in 14cm 12mm - [id number] Implanted:Qty: 1 on 07/03/2022 by Timmy Brunner MD at [facility] Implant Left: Vein [employer] [id number] / / [id number] Description:SHORT GASTRIC VE IN Coil Concerto Pgla Dolton Detach Sys 12mm 30cm - [id number] Implanted:Qty: 1 on 07/03/2022 by Timmy Brunner MD at [facility] Implant Left: Vein EV3 A [employer] [id number] / / [id number] Description:Short gastric ve in Coil Concerto Nyl Dolton Detach Sys 8mm 30cm - [id number] Implanted:Qty: 1 on 07/03/2022 by Timmy Brunner MD at [facility] Implant Left: Vein EV3 [employer] [id number] / / [id number] Description:SHORT GASTRIC VE IN Coil Concerto Nyl Dolton Detach Sys 8mm 30cm - [id number] Implanted:Qty: 1 on 07/03/2022 by Timmy Brnuner MD at [facility] Implant Left: Vein EV3 A [employer] [id number] / / [id number] Description:Short gastric ve in Coil Concerto Nyl Dolton Detach Sys 8mm 30cm - [id number] Implanted:Qty: 1 on 07/03/2022 by Timmy Brunner MD at [facility] Implant Left: Vein EV3 A [employer] [id number] / / [id number] Description:Short gastric ve in Coil Concerto Pgla Hel Detach Sys 14mm 40cm - [id number] Implanted:Qty: 1 on 07/03/2022 by Timmy Burnner MD at [facility] Implant Left: Vein EV3 A [employer] [id number] / / [id number] Description:Short gastric ve in Coil Concerto Pgla Hel Detach Sys 14mm 40cm - [id number] Implanted:Qty: 1 on 07/03/2022 by Timmy Brunner MD at [facility] Implant Left: Vein EV3 A [employer] [id number] / / [id number] Description:Short gastric ve in Coil Concerto Pgla Dolton Detach Sys 14mm 30cm - [id number] Implanted:Qty: 1 on 07/03/2022 by Timmy Brunner MD at [facility] Implant Left: Vein EV3 A [employer] [id number] / / [id number] Description:Short gastric ve in Coil Concerto Pgla Dolton Detach Sys 14mm 30cm - [id number] Implanted:Qty: 1 on 07/03/2022 by Timmy Brunner MD at [facility] Implant Left: Vein EV3 A [employer] [id number] / / [id number] Description:Short gastric ve in Coil Concerto Pgla Dolton Detach Sys 14mm 30cm - [id number] Implanted:Qty: 1 on 07/03/2022 by Timmy Brunner MD at [facility] Implant Left: Vein EV3 A [employer] [id number] / / [id number] Description:Short gastric ve in Procedures Procedure Name Priority Date/Time Associated Diagnosis Comments SCANNED - LABS 02/23/2025 HEPATITIS PANEL, ACUTE Add-On 07/08/2024 10:33 PM EST LIPID PANEL Routine 10/15/2023 4:16 PM EDT Mixed hyperlipidemia from Last 3 Months or Most Recently Relevant to Health Maintenance Results * LABS SCANNED (02/23/2025) Enedina Mcguire APRN LAB BLOOD ORDERABLES Fin al Result * Hepatitis Panel, Acute (07/08/2024 10:33 PM EST) Hepatitis B Surface Ag Non-Reacti ve Non-Reacti ve 07/09/2024 2:07 PM EST [facility] Hep A IgM Non-Reacti ve Non-Reacti ve 07/09/2024 2:07 PM EST [facility] Hep B C IgM Non-Reacti ve Non-Reacti ve 07/09/2024 2:07 PM EST [facility] Hepatitis C Ab Non-Reacti ve Non-Reacti ve 07/09/2024 2:07 PM EST [facility] Blood Line / Unknown 07/08/2024 10 :33 PM EST 07/08/2024 10:42 PM EST Narrative [facility] - 07/09/2024 2:07 PM EST Results may be falsely decreased if patient taking Biotin. Chiquis JACOME LAB BLOOD ORDERABLES Final Resu lt [facility]
[address] [place] [address], [place] [phone] * (ABNORMAL) Lipid Panel (10/15/2023 4:16 PM EDT) Total Cholesterol 234(H) 0 - 200 mg/dL 10/16/2023 2:33 AM EDT [facility] Triglycerides 203(H) 0 - 150 mg/dL 10/16/2023 2:33 AM EDT [facility] HDL Cholesterol 41 40 - 60 mg/dL 10/16/2023 2:33 AM EDT [facility] LDL Cholesterol 156(H) 0 - 100 mg/dL 10/16/2023 2:33 AM EDT [facility] VLDL Cholesterol 37 5 - 40 mg/dL 10/16/2023 2:33 AM EDT [facility] LDL/HDL Ratio 3.72 10/16/2023 2:33 AM EDT [facility] Blood Venipuncture / Unknown 10/15/2023 4:16 PM EDT 10/15/2023 4:16 PM EDT [facility] - 10/16/2023 2:33 AM EDT Cholesterol [...] Very High >189 mg/dL us Enedina Mcguire JUNIOR WEB DEVELOPER LAB BLOOD ORDERABLES Fin al Result [facility]
[address] [place] [address], from Last 3 Months or Most Recently Relevant to Health Maintenance [place] [id number] UMR Advance Directives * CPR (Attempt to [...] Of Support Discussed With: Patient Care Teams Header Dock Relationship Specialty Start Date End Date Enedina Mcguire APRN [address] [place] [address] PCP - General Nurse Practitioner 10/27/24
--- OUTSIDE RECORDS SUMMARY | 2025-04-03 12:05 | XMS_ITS | Encounter Summary ---
Author Organization [facility] Address [address] [place] [address] Care Team Providers Care Right Of Way Supervisor Name Role Phone Enedina Mcguire NP Primary Care Provider + [phone] Maureen Pantoja RN Unavailable Unavail able Chris Orosco MD Unavailable [phone] Source Comments This information has been disclosed [...] release of HIV test results or diagnoses. [id number] Reason for Visit * Reason Comments Medication Refill Encounter Details Date Type Department Care Team (Late st Contact Info) Description 03/12/2025 Refill [facility] Liver Transplant at [address] [address] Lydia Sanchez MD [address] [place] [address] Liver/[place] [address] Encounter for therapeutic drug monitoring; S/P liver transplant ([facility]); Hypomagnesemia; Kidney transplant recipient; Hypertension, unspecified [...] as 4 glasses of wine a days [facility] Utilities Answer Date Recorded In the past 12 months has th e [employer], [employer], oil, or water company threatened to shut [...] documented as of this encounter Care Teams Right Of Way Supervisor Relationship Specialty Start Date End Date Enedina Mcguire NP [address] [place] [address] PCP - General Internal Medicine 10/05/24 Maureen Pantoja, RN Txp Post Coordinator Transplant Hepatology 10/28/24 Chris Orosco MD [address] [place] [address] [address] [place] [address] Consulting Physician Transplant Hepatology 02/26/25 documented as of this encounter
--- OUTSIDE RECORDS SUMMARY | 2025-04-03 12:05 | XMS_ITS | Encounter Summary ---
Author Organization [facility] Address [address] [place] [address] Care Team Providers Care Oil Pit Attendant Name Role Phone Enedina Mcguire NP Primary Care Provider + [phone] Maureen Pantoja RN Unavailable Unavail able Source [...] release of HIV test results or diagnoses. [id number] Reason for Visit * Reason Onset Date Comments Medication Refill 01/21/2025 Encounter Details Date Type Department Care Team (Late st Contact Info) Description 01/21/[address] [facility] Liver Transplant at [address] [address] Harvey Domínguez III, MD [address] [place] [address] Encounter for therapeutic drug monitoring; S/P liver transplant ([facility]); Hypomagnesemia; Kidney transplant recipient; Hypertension, unspecified [...] as 4 glasses of wine a days [facility] Utilities Answer Date Recorded In the past 12 months has th e [employer], gas, oil, or water company threatened [...] Weekly 01/28/2025 12:00 AM Marixa Dowd RN documented as of this encounter Plan of Treatment Not on file documented as of this encounter Visit Diagnoses Diagnosis Encounter for therapeutic drug monitoring S/P liver transplant ([facility]) Hypomagnesemia Disorders of magnesium metabolism Kidney transplant [...] as of this encounter Care Teams Oil Pit Attendant Relationship Specialty Start Date End Date Enedina Mcguire NP [address] [place], [place] [id number] PCP - General Internal Medicine 10/05/24 Maureen Pantoja, ЮЛИЯ Txp Post Coordinator Transplant Hepatology 10/28/24 documented as of this encounter
--- OUTSIDE RECORDS SUMMARY | 2025-04-03 12:05 | XMS_ITS | Encounter Summary ---
Author Organization [facility] Address [address] [place] [address] Care Team Providers Care Supervisor Last Model Department Name Role Phone Enedina Mcguire APRN Primary [...] 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 [facility] Utilities Answer Date Recorded In the past 12 months has [employer], gas, oil, or water [employer] threatened to shut off services in your [...] Depression Severity Measure Score 0 10/02/2022 [facility] [place] of Occupat ional Health - Occupational Stress [...] Visit [facility] [address] [place] [address] Enedina Mcguire APRN [address] [place] [phone] 05/21/2025 12:30 PM EST Office Visit [facility] [address] [address] Vazquez Christie PA-C [address] [place] [address] documented as of this encounter Visit Diagnoses Not on filedocumented in this encounter Additional Health Concerns Assessment Noted Time PHQ-2 Depression Total Score: 1 12/31/19 24 3:25 PM EDT documented as of this encounter Care Teams Supervisor Last Model Department Relationship Specialty Start Date End Date Enedina Mcguire APRN [address] [place] [address] [phone] PCP - General Nurse Practitioner 10/27/24 documented as of this encounter
--- OUTSIDE RECORDS SUMMARY | 2025-04-03 12:05 | XMS_ITS | Encounter Summary ---
Author Organization [facility] Address [address] [place] [address] Care Team Providers Care Radio Repairer Name Role Phone Enedina Mcguire NP Primary Care Provider + [phone] Maureen Pantoja RN Unavailable Unavail able Chris Orosco MD Unavailable [phone] Source Comments This information has been disclosed [...] release of HIV test results or diagnoses. [id number] Health Reason for Visit * Reason Comments Results Encounter Details Date Type Department Care Team (Late st Contact Info) Description 03/19/2025 Telephone [facility] Liver Transplant at [address] [address] Maureen Pantoja, ЮЛИЯ Results Social History Tobacco Use Types Packs/Day Years Used Date Smoking Tobacco: Former Cigarettes Smokeless Tobacco: Current Alcohol Use Standard Drinks/Week Comments Yes 0 (1 standard drink = 0.6 oz pure alcohol) History of alcohol abuse, reports no use in 3 week- typically endorses use as 4 glasses of wine a days [facility] Utilities Answer Date Recorded In the past 12 months has [employer], gas, oil, or water company threatened to [...] Progress Notes * Maureen Pantoja RN - 03/19/2025 11:04 AM EST Received PEth results from outside lab. PEth 03/04: 587 PEth 03/10: 413 Will update Txp Provider and Txp SW and continue to monitor. documented in this encounter Plan of Treatment Not on file documented as of this encounter Visit Diagnoses Not on filedocumented in this encounter Additional Health Concerns Infection Onset Date Last Indicated Resolved Time C. difficile 01/28/2025 01/28/2025 Assessment Noted Time PHQ-9 Depression Total Score: 2 12/11/19 25 9:00 AM EDT documented as of this encounter Care Teams Radio Repairer Relationship Specialty Start Date End Date Enedina Mcguire NP [address] [place] [address] PCP - General Internal Medicine 10/05/24 Maureen Pantoja RN Txp Post Coordinator Transplant Hepatology 10/28/24 Chris Orosco MD [address] [place] [address] [address] [place] [address] Consulting Physician Transplant Hepatology 02/26/25 documented as of this encounter
--- OUTSIDE RECORDS SUMMARY | 2025-04-03 12:05 | XMS_ITS | Encounter Summary ---
Author Organization [facility] Address [address] [place] [address] Care Team Providers Care Doctor Of Nursing Practice Name Role Phone Enedina Mcguire NP Primary Care Provider + [phone] Maureen Pantoja RN Unavailable Unavail able Chris Orosco MD Unavailable [phone] Source Comments This information has been disclosed [...] release of HIV test results or diagnoses. [id number] Encounter Details Date Type Department Care Team (Late st Contact Info) Description 03/10/2025 Telephone [facility] Kidney Transplant at [address] [address] Lizeth Walden, RN Social History Tobacco Use Types Packs/Day Years Used Date Smoking Tobacco: Former Cigarettes Smokeless Tobacco: Current Alcohol Use Standard Drinks/Week Comments Yes 0 (1 standard drink = 0.6 oz pure alcohol) History of alcohol abuse, reports no use in 3 week- typically endorses use as 4 glasses of wine a days [facility] Utilities Answer Date Recorded In the past 12 months has [employer], gas, oil, or water [employer] threatened to shut off services in your [...] documented as of this encounter Care Teams Doctor Of Nursing Practice Relationship Specialty Start Date End Date Enedina Mcguire NP [address] [place] [address] PCP - General Internal Medicine 10/05/24 Maureen Pantoja, ЮЛИЯ Txp Post Coordinator Transplant Hepatology 10/28/24 Chris Orosco MD [address] [place] [address] [address] Liver [place] [address] Consulting Physician Transplant Hepatology 02/26/25 documented as of this encounter
--- OUTSIDE RECORDS SUMMARY | 2025-04-03 12:05 | XMS_ITS | Encounter Summary ---
Author Organization [facility] Address [address] [place] [address] Care Team Providers Care Chief Unit Forester Name Role Phone Enedina Mcguire APRN Primary Care Provider + Encounter Details Date Type Department Care Team (Late st Contact Info) Description 03/02/2025 Telephone [facility]EMENT [address] [address] Georgina Rainey MA Social History [...] In the past 12 months has [employer], [employer], oil, or water [email or web address] threatened to shut off services in your [...] Brief Depression Severity Measure Score 0 10/02/2022 [facility] - Occupational Stress Questionnaire Answer Date [...] Description 05/18/2025 2:30 PM EST Office Visit [facility] INTERNAL [facility]ICINE [address] [place] [phone] Enedina Mcguire, PRINT PRODUCTION COORDINATOR [address] [place] [address] 05/21/2025 12:30 PM EST Office Visit [facility] [address] [phone] Vazquez Christie PA-C [address] [phone] documented as of this encounter Visit Diagnoses Not on filedocumented in this encounter Additional Health Concerns Assessment Noted Time PHQ-2 Depression Total Score: 1 12/31/19 24 3:25 PM EDT documented as of this encounter Care Teams Chief Unit Forester Relationship Specialty Start Date End Date Enedina Mcguire APRN [address] [place] [address] PCP - General Nurse Practitioner 10/27/24 documented as of this encounter
--- OUTSIDE RECORDS SUMMARY | 2025-04-03 12:05 | XMS_ITS | Encounter Summary ---
Author Organization [facility] Address [address] [place] [address] Care Team Providers Care Driving Instructor Name Role Phone nEedina Mcguire NP Primary Care Provider + [phone] Maureen Pantoja RN Unavailable Unavail able Chris Orosco MD Unavailable +[phone] Source Comments This information has been disclosed [...] release of HIV test results or diagnoses. [id number] Encounter Details Date Type Department Care Team (Late st Contact Info) Description 03/16/2025 Telephone [facility] Liver Transplant at [address] [address] Mitzy Gill MA Social History Tobacco Use Types Packs/Day Years Used Date Smoking Tobacco: Former Cigarettes Smokeless Tobacco: Current Alcohol Use Standard Drinks/Week Comments Yes 0 (1 standard drink = 0.6 oz pure alcohol) History of alcohol abuse, reports no use in 3 week- typically endorses use as 4 glasses of wine a days [facility] Utilities Answer Date Recorded In the past 12 months has [employer], gas, oil, or water company threatened [...] documented as of this encounter Care Teams Driving Instructor Relationship Specialty Start Date End Date Enedina Mcguire NP [address] [place] [address] PCP - General Internal Medicine 10/05/24 Maureen Pantoja, ЮЛИЯ Txp Post Coordinator Transplant Hepatology 10/28/24 Chris Orosco MD [address] [place] [address] [place] [address] Consulting Physician Transplant Hepatology 02/26/25 documented as of this encounter
--- OUTSIDE RECORDS SUMMARY | 2025-04-03 12:06 | XMS_ITS | Encounter Summary ---
Author Organization [facility] Address [address] [place] [address] Care Team Providers Care Tray Line Worker Name Role Phone Enedina Mcguire NP Primary Care Provider + [phone] Maureen Pantoja RN Unavailable Unavail able Source [...] release of HIV test results or diagnoses. [id number] Health Encounter Details Date Type Department Care Team (Late st Contact Info) Description 02/12/2025 Social Work [facility] Liver Transplant at [address] [place] [phone] Kaylin Willard MSW Social History Tobacco Use [...] Recorded In the past 12 months has [employer], gas, oil, or water company threatened [...] for marijuana use and transplant. NUBIA Barros, DEBT RECOVERY OFFICER Transplant Elevator Service Technician documented in this encounter Plan of Treatment Not on file documented as of this encounter Visit Diagnoses Not on filedocumented in this encounter Additional Health Concerns Infection Onset Date Last Indicated Resolved Time C. difficile 01/28/2025 01/28/2025 Assessment Noted Time PHQ-9 Depression Total Score: 2 12/11/19 25 9:00 AM EDT documented as of this encounter Care Teams Tray Line Worker Relationship Specialty Start Date End Date Enedina Mcguire NP [address] [place] [address] PCP - General Internal Medicine 10/05/24 Maureen Pantoja, RN Txp Post Coordinator Transplant Hepatology 10/28/24 documented as of this encounter
--- OUTSIDE RECORDS SUMMARY | 2025-04-03 12:06 | XMS_ITS | Encounter Summary ---
Author Organization [facility] Address [address] [place] [address] Care Team Providers Care Endocrinology Nurse Name Role Phone Enedina Mcguire NP Primary Care Provider + [phone] Maureen Pantoja RN Unavailable Unavail able Source [...] release of HIV test results or diagnoses. [id number] Health Encounter Details Date Type Department Care Team (Late st Contact Info) Description 02/03/2025 Chart Note [facility] Liver Transplant at [address] [place] [phone] Marlene Ro MA 02/03 Labs entered from [facility] Social History Tobacco Use Types Packs/Day Years Used Date Smoking Tobacco: Former Cigarettes Smokeless Tobacco: Current Alcohol Use Standard Drinks/Week Comments Yes 0 (1 standard drink = 0.6 oz pure alcohol) History of alcohol abuse, reports no use in 3 week- typically endorses use as 4 glasses of wine a days [facility] Utilities Answer Date Recorded In the past 12 months has [employer], gas, oil, or water company threatened to [...] were not included. 02/03 Labs entered from [facility] documented in this encounter Plan [...] Positive Norovirus Detected FECES / Unknown Result [facility] Provider BODY FLUIDS AND STOOLS OR DERABLES Edited Result - Final * Phatidylethanol (PEth) (02/03/2025 9:39 AM EDT) Phosphatidylethanol (PEth) Positive 312 Whole Blood Result [facility] LAB BLOOD ORDERABLES Denisse l Result * Tacrolimus level (02/03/2025 9:39 AM EDT) Tacrolimus Lvl 7.0 6 - 15 ng/mL Whole Blood Narrative Resulting Agency Comment Kev TalleyPt Result [facility] LAB BLOOD ORDERABLES [place] Result * Cytomegalovirus DNA, Quant, RT PCR (02/03/2025 9:39 AM EDT) CMV Quant DNA PCR (Plasma) Negative Plasma Narrative Resulting Agency Comment Kev TalleyPt Result [facility] LAB BLOOD ORDERABLES Denisse l Result * BK Virus Quantitative by PCR, Blood (02/03/2025 9:39 AM EDT) BK Virus Quant PCR PL Negative Plasma Narrative Resulting Agency Comment [facility] LAB BLOOD ORDERABLES [place]isse l Result * Creatinine, urine, random (02/03/2025 9:39 AM EDT) Creatinine, Urine 79 Urine Narrative Resulting Agency Comment Kev Downey Result [facility] URINE ORDERABLES Final Re sult * Urine Protein, Tot, Random (w/o Creat) (02/03/2025 9:39 AM EDT) Pathologist [facility] Total Protein, Ur 12.0 Urine Narrative Resulting Agency [facility] Result [facility] Provider URINE ORDERABLES Final Re sult * Hepatic Function Panel (02/03/2025 9:39 AM EDT) Pathologist [facility] Bilirubin, Direct 0.1 Bilirubin, Indirect 0.4 Alkaline Phosphatase 61 ALT 15 AST 18 Total Bilirubin 0.5 Total Protein 6.4 Plasma Narrative Resulting Agency Comment [facility] Result [facility] LAB BLOOD ORDERABLES [place]isse l Result * (ABNORMAL) Magnesium (02/03/2025 9:39 AM EDT) Pathologist [facility] Magnesium 1.3(A) 1.6 - 2.4 mg/dL Plasma Narrative Resulting Agency Comment Kev [facility] Result [facility] Provider LAB BLOOD ORDERABLES [place]isse l Result * (ABNORMAL) Renal Function Panel w/o EGFR (02/03/2025 9:39 AM EDT) Pathologist [facility] Glucose 114 BUN 17 CO2 28(A) 13 - 22 mmol/L Creatinine 0.90 Potassium 4.1 Sodium 140 Chloride 103 Phosphorus 5.5(A) 2.5 - 4.9 mg/dL Calcium 9.4 EGFR 93 mg/dL Albumin 4.5 3.5 - 5.0 g/dL Blood Narrative Resulting Agency Comment [facility] Result [facility] Provider LAB BLOOD ORDERABLES Denisse l Result * Urinalysis w/Rfl to Microscopic (02/03/2025 9:39 AM EDT) Pathologist [facility] Glucose, UA Negative Negative Ketones, UA Negative Negative Blood, UA Negative Negative Bilirubin, UA Negative Negative Urobilinogen, UA Normal Normal Protein, UA Negative Negative Nitrite, UA Negative Negative pH, UA 6.0 4.5 - 8.0 Specific Gregory, UA 1.020 1.005 - 1.030 Clarity, UA [...] 10^3/mL Blood Narrative Resulting Agency Comment Kev [facility] Historical Provider LAB BLOOD ORDERABLES Denisse l Result documented in this encounter Visit Diagnoses Not on filedocumented in this encounter Additional Health Concerns Infection Onset Date Last Indicated Resolved Time C. difficile 01/28/2025 01/28/2025 Assessment Noted Time PHQ-9 Depression Total Score: 2 12/11/19 25 9:00 AM EDT documented as of this encounter Care Teams Endocrinology Nurse Relationship Specialty Start Date End Date Enedina Mcguire NP [address] [place] [address] PCP - General Internal Medicine 10/05/24 Maureen Pantoja, ЮЛИЯ Txp Post Coordinator Transplant Hepatology 10/28/24 documented as of this encounter
--- OUTSIDE RECORDS SUMMARY | 2025-04-03 12:06 | XMS_ITS ---
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
--- OUTSIDE RECORDS SUMMARY | 2025-04-03 12:06 | XMS_ITS ---
Author Organization [facility] Address [facility] [place] [address] Care Team Providers Care Experimental Mechanic Spacecraft Name Role Phone Enedina Mcguire NP Primary Care Provider + [phone] Maureen Pantoja RN Unavailable Unavail able Chris Orosco MD Unavailable [phone] Transplant Episode Liver Recipient [facility] ([place] [place]) - [facility] Organ Received: Liver Transplanted on 10/26/2024 Marked as Active Follow-up on 10/26/2024 Liver CoordinatorMaureen Pantoja RN Phone: N/A Fax: N/A Email: N/A [place] Organ Diagnosis Organ Primary Contributory Liver Alcohol-Associated [...] N/A Chris Orosco MD Referring Physician Txp Filament Wound Parts Fabricator [phone] N/A Maureen Pantoja RN Txp Post Coordinator N/A N/A N/A NUBIA Barros Txp Comprehensive Ophthalmologist N/A N/A N/A Harvey Domínguez III, MD Txp Surgeon [phone] N/A Mary Butler RN Txp Pre Coordinator N/A N/A N/A Events Post-Transplant Pre-Transplant Admitted: 10/25/2024 Referred: 08/13/2024 Transplanted: 10/26/2024 Evaluation began: 5 Discharged: 11/02/2024 Committee: 10/14/2024 Center waitlisted: 5 Pending Checklist Tasks (Due on or before 05/03/2025) Name Due Date Attached Appoint ment Social Work Consult 01/05/2025
--- OUTSIDE RECORDS SUMMARY | 2025-04-03 12:06 | XMS_ITS | Encounter Summary ---
Author Organization [facility] Address [address] [place] [address] Care Team Providers Care Tunnel Man Name Role Phone Enedina Mcguire NP Primary Care Provider + [phone] Maureen Pantoja RN Unavailable Unavail able Source [...] release of HIV test results or diagnoses. [id number] Reason for Visit * Reason Comments Results Encounter Details Date Type Department Care Team (Riky st Contact Info) Description 02/12/[address] [facility] Liver Transplant at [address] [address] Maureen Pantoja, RN Results Social History Tobacco Use Types Packs/Day Years Used Date Smoking Tobacco: Former Cigarettes Smokeless Tobacco: Current Alcohol Use Standard Drinks/Week Comments Yes 0 (1 standard drink = 0.6 oz pure alcohol) History of alcohol abuse, reports no use in 3 week- typically endorses use as 4 glasses of wine a days [facility] Utilities Answer Date Recorded In the past 12 months has [employer], gas, oil, or water company threatened [...] documented as of this encounter Care Teams Tunnel Man Relationship Specialty Start Date End Date Enedina Mcguire NP [address] [place] [address] PCP - General Internal Medicine 10/05/24 Maureen Pantoja, ЮЛИЯ Txp Post Coordinator Transplant Hepatology 10/28/24 documented as of this encounter
--- OUTSIDE RECORDS SUMMARY | 2025-04-03 12:06 | XMS_ITS | Clinical Summary ---
Author Organization [employer] ([place], [place], [place], [place]) Address [address] [place] [address] Care Team Providers Care Packer Operator Automatic Name Role Phone Unavailable Primary Care Provider [...]
--- OUTSIDE RECORDS SUMMARY | 2025-04-03 12:06 | XMS_ITS | Encounter Summary ---
Author Organization [facility] Address [address] [place] [address] Care Team Providers Care Florist Name Role Phone Enedina Mcguire NP Primary Care Provider + [phone] Maureen Pantoja RN Unavailable Unavail able Source [...] release of HIV test results or diagnoses. [id number] Health Encounter Details Date Type Department Care Team (Late st Contact Info) Description 02/23/2025 Telephone [facility] Liver Transplant at [address] [address] Marlene Ro MA Social History Tobacco Use Types Packs/Day Years Used Date Smoking Tobacco: Former Cigarettes Smokeless Tobacco: Current Alcohol Use Standard Drinks/Week Comments Yes 0 (1 standard drink = 0.6 oz pure alcohol) History of alcohol abuse, reports no use in 3 week- typically endorses use as 4 glasses of wine a days [facility] Utilities Answer Date Recorded In the past 12 months has [employer], gas, oil, or water [employer] threatened to shut off services in [...] Progress Notes * Marlene oR MA - 02/23/2025 11:42 AM EDT Called [...] documented as of this encounter Care Teams Florist Relationship Specialty Start Date End Date Enedina Mcguire NP [address] [place] [address] PCP - General Internal Medicine 10/05/24 Maureen Pantoja, ЮЛИЯ Txp Post Coordinator Transplant Hepatology 10/28/24 documented as of this encounter
--- OUTSIDE RECORDS SUMMARY | 2025-04-03 12:06 | XMS_ITS | Referral Summary ---
Author Organization [employer] ([place], [place], [place]) Address [address] [place] [address] Care Team Providers Care Him Coder Name Role Phone Unavailable Primary Care Provider [...]
--- OUTSIDE RECORDS SUMMARY | 2025-04-03 12:06 | XMS_ITS | Encounter Summary ---
Author Organization [facility] Address [address] [place] [address] Care Team Providers Care Lamps Tester And Inspector Name Role Phone Enedina Mcguire NP Primary Care Provider + [phone] Maureen Pantoja RN Unavailable Unavail able Source [...] release of HIV test results or diagnoses. [id number] Health Encounter Details Date Type Department Care Team (Late st Contact Info) Description 02/17/2025 Telephone [facility] Liver Transplant at [address] [address] Marlene Ro MA Social History Tobacco Use Types Packs/Day Years Used Date Smoking Tobacco: Former Cigarettes Smokeless Tobacco: Current Alcohol Use Standard Drinks/Week Comments Yes 0 (1 standard drink = 0.6 oz pure alcohol) History of alcohol abuse, reports no use in 3 week- typically endorses use as 4 glasses of wine a days [facility] Utilities Answer Date Recorded In the past 12 months has [employer], gas, oil, or water [employer] threatened to shut off services in [...] documented as of this encounter Care Teams Lamps Tester And Inspector Relationship Specialty Start Date End Date Enedina Mcguire NP [address] [place] [address] PCP - General Internal Medicine 10/05/24 Maureen Pantoja, ЮЛИЯ Txp Post Coordinator Transplant Hepatology 10/28/24 documented as of this encounter
--- OUTSIDE RECORDS SUMMARY | 2025-04-03 12:06 | XMS_ITS | Encounter Summary ---
Author Organization [facility] Address [address] [place] [address] Care Team Providers Care Weaving Professor Name Role Phone Enedina Mcguire NP Primary Care Provider + [phone] Maureen Pantoja RN Unavailable Unavail able Source [...] release of HIV test results or diagnoses. [id number] Reason for Visit * Reason Comments Medication Refill Encounter Details Date Type Department Care Team (Late st Contact Info) Description 02/08/2025 Refill [facility] Liver Transplant at [address] [address] Harvey Domínguez III, MD [address] [place] [phone] Social History Tobacco Use Types Packs/Day Years Used Date Smoking Tobacco: Former Cigarettes Smokeless Tobacco: Current Alcohol Use Standard Drinks/Week Comments Yes 0 (1 standard drink = 0.6 oz pure alcohol) History of alcohol abuse, reports no use in 3 week- typically endorses use as 4 glasses of wine a days [facility] Utilities Answer Date Recorded In the past 12 months has [employer], gas, oil, or water [employer] threatened to shut off services in [...] documented as of this encounter Care Teams Weaving Professor Relationship Specialty Start Date End Date Enedina Mcguire NP [address] [place] [address] PCP - General Internal Medicine 10/05/24 Maureen Pantoja, ЮЛИЯ Txp Post Coordinator Transplant Hepatology 10/28/24 documented as of this encounter
--- OUTSIDE RECORDS SUMMARY | 2025-04-03 12:06 | XMS_ITS | Encounter Summary ---
Author Organization [employer] ([place], [place], [place]) Address [address] [place] [address] Care Team Providers Care Family Preservation Officer Name Role Phone Unavailable Primary Care Provider Unavailabl e Encounter Details Date Type Department Care Team (Late st Contact Info) Description 06/03/2018 Transcribed Document [facility] Family Medicine [facility] [place] [address] ProviderEbenezer MD [address] [place], [place] [id number] Social History Tobacco Use Types Packs/Day Years [...] - Historical ProviderMD - 06/03/2018 3:03 PM GRIEVANCE AND APPEALS COORDINATOR ED Discharge Entered On: 06/03/2018 15:03 EST Performed On: 06/03/2018 15:03 EST by Lizeth Almeida, fisher gill net Process Patient Disposition : Discharge Personal Belongings [...] - 06/03/2018 15:03 EST Electronically signed by [facility] Conversion Drawbench Operator Helper Cerem[employer]ett at 08/29/2022 6:35 PM CDT documented in this encounter Plan of Treatment Not on file documented as of this encounter Visit Diagnoses Not on filedocumented in this encounter
--- OUTSIDE RECORDS SUMMARY | 2025-04-03 12:06 | XMS_ITS | Encounter Summary ---
Author Organization [facility] Address [address] [place] [address] Care Team Providers Care Middle School Math Teacher Name Role Phone Enedina Mcguire NP Primary Care Provider + [phone] Maureen Pantoja RN Unavailable Unavail able Source [...] release of HIV test results or diagnoses. [id number] Health Encounter Details Date Type Department Care Team (Late st Contact Info) Description 02/03/2025 Telephone [facility] Liver Transplant at [address] [address] Marlene Ro MA Social History Tobacco Use Types Packs/Day Years Used Date Smoking Tobacco: Former Cigarettes Smokeless Tobacco: Current Alcohol Use Standard Drinks/Week Comments Yes 0 (1 standard drink = 0.6 oz pure alcohol) History of alcohol abuse, reports no use in 3 week- typically endorses use as 4 glasses of wine a days [facility] Utilities Answer Date Recorded In the past 12 months has [employer], gas, oil, or water [employer] threatened to shut off services in your [...] of this encounter Care Teams Middle School Math Teacher Relationship Specialty Start Date End Date Enedina Mcguire NP [address] [place] [address] PCP - General Internal Medicine 10/05/24 Maureen Pantoja, RN Txp Post Coordinator Transplant Hepatology 10/28/24 documented as of this encounter
--- OUTSIDE RECORDS SUMMARY | 2025-04-03 12:06 | XMS_ITS | Encounter Summary ---
Author Organization [employer] ([place], [place], [place], [place]) Address [address] [place] [address] Care Team Providers Care Ceramics Artist Name Role Phone Unavailable Primary Care Provider Unavailabl e Encounter Details Date Type Department Care Team (Late st Contact Info) Description 06/03/2018 Transcribed Document [facility] Family Medicine [address] [place] [address] ProviderEbenezer MD [address] [place], [place] [id number] Social History Tobacco Use Types Packs/Day Years [...] - Historical ProviderMD - 06/03/2018 12:08 PM DISTRICT DIRECTOR ED Assessment Entered On: 06/03/2018 14:51 EST Performed On: 06/03/2018 13:50 EST by Lizeth Almeida, SUPERVISOR LABOR GANG Quick Look Assessment Level of Consciousness : Alert Affect/Behavior : Calm, Cooperative Orientation : Oriented x 4 Skin Color : Other: [place] Skin Temperature : Warm Skin Description : Dry Lizeth Almeida, RN - 06/03/2018 14:50 EST ED General-Functional Assess Communication Barrier : None Primary Language : Romansh Any Spiritual/Cultural Needs or Requests : No [...] Electronically signed by Luis Eduardo Ochoa Conversion Program Proposals Coordinator Cerner at 08/29/2022 6:34 PM CDT documented in this encounter Plan of Treatment Not on file documented as of this encounter Visit Diagnoses Not on filedocumented in this encounter
--- OUTSIDE RECORDS SUMMARY | 2025-04-03 12:06 | XMS_ITS | Encounter Summary ---
Author Organization [facility] Address [address] [place] [address] Care Team Providers Care Egyptologist Name Role Phone Enedina Mcguire NP Primary Care Provider [phone] Maureen Pantoja RN Unavailable Unavail able Source [...] release of HIV test results or diagnoses. [id number] Reason for Visit * Reason Comments Results Encounter Details Date Type Department Care Team (Riky mcdaniel Contact Info) Description 02/13/2025 Telephone [facility] Liver Transplant at [address] [address] Marisela Martinez MA Results Social [...] In the past 12 months has [employer] electric, gas, oil, or water company [...] after discussionwith transplant ID and transplant nephrology. [employer] message sent to patient. * Mariola Quintana RN - 02/13/2025 9:09 AM EDT Covering RN Coordinator aware. Will route to Txp Provider for further review and recommendations. * Marisela Martinez MA - 02/13/2025 8:38 AM EDT Ashley from [facility] outpt lab called to report [...] documented as of this encounter Care Teams Egyptologist Relationship Specialty Start Date End Date Enedina Mcguire NP [address] [place] [address] PCP - General Internal Medicine 10/05/24 Maureen Pantoja, ЮЛИЯ Txp Post Coordinator Transplant Hepatology 10/28/24 documented as of this encounter
--- OUTSIDE RECORDS SUMMARY | 2025-04-03 12:06 | XMS_ITS | Encounter Summary ---
Author Organization [employer] ([place], [place], [place], [place]) Address [address] [place] [address] Care Team Providers Care Rn Field Name Role Phone Unavailable Primary Care Provider Unavailabl e Encounter Details Date Type Department Care Team (Late st Contact Info) Description 06/03/2018 Transcribed Document [facility] Family Medicine [address] [place] [address] ProviderEbenezer MD [address] [place], [place] [id number] Social History Tobacco Use Types Packs/Day Years [...] - Historical ProviderMD - 06/03/2018 2:24 PM QUARANTINE OFFICER Electronically signed by Gabriela [facility] Conversion Medical Record Administrator Cerner at 08/29/2022 6:41 PM CDT documented in this encounter Plan of Treatment Not on file documented as of this encounter Visit Diagnoses Not on filedocumented in this encounter
--- OUTSIDE RECORDS SUMMARY | 2025-04-03 12:06 | XMS_ITS | Encounter Summary ---
Author Organization [facility] Address [address] [place] [address] Care Team Providers Care Laboratory Asst Name Role Phone Enedina Mcguire NP Primary Care Provider + [phone] Maureen Pantoja RN Unavailable Unavail able Source [...] release of HIV test results or diagnoses. [id number] Reason for Visit * Reason Comments Results Encounter Details Date Type Department Care Team (Riky mcdaniel Contact Info) Description 02/03/2025 Telephone [facility] Liver Transplant at [address] [address] Mitzy Gill MA Results Social History Tobacco Use Types Packs/Day Years Used Date Smoking Tobacco: Former Cigarettes Smokeless Tobacco: Current Alcohol Use Standard Drinks/Week Comments Yes 0 (1 standard drink = 0.6 oz pure alcohol) History of alcohol abuse, reports no use in 3 week- typically endorses use as 4 glasses of wine a days [facility] Utilities Answer Date Recorded In the past [...] ended up being admitted to [facility] (01/27/25-01/30/25) after these tests were ordered but beforehe went to his local lab. Patient tested positive for C.diff at [facility] on 01/28/25. He is currently on Dificid 200 mg BID until 02/06/25. Patient tested negative for Norovirus at [facility] on 01/27/25. Patient's MMF is currently on hold. Will route results to Mop Provider for further review. * Mitzy Gill MA - 02/03/2025 3:23 PM EDT Armida from [facility] Lab called to report critical value [...] as of this encounter Care Teams Laboratory Asst Relationship Specialty Start Date End Date Enedina Mcguire NP [address] [place] [address] PCP - General Internal Medicine 10/05/24 Maureen Pantoja, RN Txp Post Coordinator Transplant Hepatology 10/28/24 documented as of this encounter
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
--- OUTSIDE RECORDS SUMMARY | 2025-04-03 12:06 | XMS_ITS | Encounter Summary ---
Author Organization [employer] ([place], [place], [place], [place], [place]) Address [address] [place] [address] Care Team Providers Care Dance Costume Designer Name Role Phone Unavailable Primary Care Provider Carmen jimenez Encounter Details Date Type Department Care Team (Late st Contact Info) Description 06/03/2018 Transcribed Document [facility] [place] [facility] [place] [address] ProviderEbenezer MD [address] [place] [address] Social History Tobacco Use Types [...] - Historical ProviderMD - 06/03/2018 3:04 PM LEAD SOFTWARE QA ENGINEER [address] [place] [address] Patient Information Name: JULIEN ZELAYA [...] suture/staple removal With: Address: When: SALLY (REF) AMRGUER[facility] PURI # [address]C [address] [place] [address] [place] [address] [place] (1) Within 2 to 3 days Patient [...] off of the skin. General Instructions??? Take itec-jxz-[id number] and prescription medicines only as told by [...] 04/30/2006 Document Revised: 09/29/2016 Document Reviewed: 04/26/2015 [employer] Patient Education ? 2017 [employer] Allergies: No Known Medication Allergies Medication [...] verify that JULIEN ZELAYA was seen at [facility] Emergency Department on ,06/03/2018 15:04:17. This [...] Assistance with quitting is available by contacting 9-621-WNCJ-NOW. This is a free resource providing counseling, [...] Electronic Communications Privacy Act 18 U.S.C. ???Sections 2698-3704,?? and contain information intended for the specified [...] sure to sign up for the My [facility] patient portal, which gives you 04/12 access to your medical information ??? including these discharge instructions ??? using your computer, smartphone, or tablet. Just go to i'mma to get started. Questions? Call . Acknowledgment [...]
--- OUTSIDE RECORDS SUMMARY | 2025-04-03 12:06 | XMS_ITS | Encounter Summary ---
Author Organization [facility] Address [address] [place] [address] Care Team Providers Care Barrel Polisher Name Role Phone Enedina Mcguire NP Primary Care Provider + [phone] Maureen Pantoja RN Unavailable Unavail able Source [...] release of HIV test results or diagnoses. [id number] Health Encounter Details Date Type Department Care Team (Late st Contact Info) Description 02/09/2025 Chart Note [facility] Liver Transplant at [address] [place] [phone] Marisela Martinez MA Social History Tobacco Use Types Packs/Day Years Used Date Smoking Tobacco: Former Cigarettes Smokeless Tobacco: Current Alcohol Use Standard Drinks/Week Comments Yes 0 (1 standard drink = 0.6 oz pure alcohol) History of alcohol abuse, reports no use in 3 week- typically endorses use as 4 glasses of wine a days [facility] Utilities Answer Date Recorded In the past 12 months has [employer], gas, oil, or water [employer] threatened to shut off services in your [...] as of this encounter Care Teams Barrel Polisher Relationship Specialty Start Date End Date Enedina Mcguire NP [address] [place] [address] PCP - General Internal Medicine 10/05/24 Maureen Pantoja, ЮЛИЯ Txp Post Coordinator Transplant Hepatology 10/28/24 documented as of this encounter
--- OUTSIDE RECORDS SUMMARY | 2025-04-03 12:06 | XMS_ITS | Encounter Summary ---
Author Organization [facility] Address [address] [place] [address] Care Team Providers Care Instructional Design Technologist Name Role Phone Enedina Mcguire NP Primary Care Provider + [phone] Maureen Pantoja RN Unavailable Unavail able Source [...] release of HIV test results or diagnoses. [id number] Health Encounter Details Date Type Department Care Team (Late st Contact Info) Description 02/04/2025 Telephone [facility] Liver Transplant at [address] [address] Marlene Ro MA Social History Tobacco Use Types Packs/Day Years Used Date Smoking Tobacco: Former Cigarettes Smokeless Tobacco: Current Alcohol Use Standard Drinks/Week Comments Yes 0 (1 standard drink = 0.6 oz pure alcohol) History of alcohol abuse, reports no use in 3 week- typically endorses use as 4 glasses of wine a days [facility] Utilities Answer Date Recorded In the past 12 months has [employer], gas, oil, or water [employer] threatened to shut off services in [...] documented as of this encounter Care Teams Instructional Design Technologist Relationship Specialty Start Date End Date Enedina Mcguire NP [address] [place] [address] PCP - General Internal Medicine 10/05/24 Maureen Pantoja, ЮЛИЯ Txp Post Coordinator Transplant Hepatology 10/28/24 documented as of this encounter
--- OUTSIDE RECORDS SUMMARY | 2025-04-03 12:06 | XMS_ITS | Encounter Summary ---
Author Organization [facility] Address [address] [place] [address] Care Team Providers Care Lead Cook Name Role Phone Enedina Mcguire NP Primary Care Provider + [phone] Maureen Pantoja RN Unavailable Unavail able Source [...] release of HIV test results or diagnoses. [id number] Health Encounter Details Date Type Department Care Team (Late st Contact Info) Description 02/09/2025 Telephone [facility] Liver Transplant at [address] [place] [phone] Marisela Martinez MA Social History Tobacco [...] Recorded In the past 12 months has [employer], gas, oil, or water [employer] threatened to shut off services in your [...] as of this encounter Care Teams Lead Cook Relationship Specialty Start Date End Date Enedina Mcguire NP [address] [place] [address] PCP - General Internal Medicine 10/05/24 Maureen Pantoja, ЮЛИЯ Txp Post Coordinator Transplant Hepatology 10/28/24 documented as of this encounter
--- OUTSIDE RECORDS SUMMARY | 2025-04-03 12:06 | XMS_ITS | Encounter Summary ---
Author Organization [employer] ([place], [place], [place], [place], [place]) Address [address] [place] [address] Care Team Providers Care Director Of Online Education Name Role Phone Unavailable Primary Care Provider Unavaillia e Encounter Details Date Type Department Care Team (Late st Contact Info) Description 06/03/2018 Transcribed Document [facility] [place] [facility] [place] [address] ProviderEbenezer MD [address] [place] [address] Social History Tobacco Use Types [...] - Historical ProviderMD - 06/03/2018 3:04 PM PAPER PROCESSING MACHINE HELPER [place] [address] [place] [address] PERSON INFORMATION Name JULIEN ZELAYA Age 33 Years 1985 Sex Male Language Yoruba PCP SALLY EVERETT (REF) T Marital Status Single Med Service Emergency Medicine Acct# Arrival 06/03/2018 12:08:00 Visit Reason Finger laceration; CUT FINGERS Acuity 3 - Urgent LOS 000 02:56 Depart Date: 06/03/18 03:04 PM Address: [facility] [address] Comment: PROVIDER INFORMATION Provider Role Assigned Unassigned Lizeth Almeida, OPERATIONS COORDINATOR Nurse 06/03/2018 12:39:09 DOMINIQUE BREWER PA-C ED [...] PURI [address] [place] [address] [place], [employer] [id number] [email or web address] Within 2 to 3 days Comment: Electronically signed by Luis Eduardo Ochoa Conversion Site Damage Prevention Technician Cerner at 08/29/2022 6:45 PM CDT documented in this encounter Plan of Treatment Not on file documented as of this encounter Visit Diagnoses Not on filedocumented in this encounter
--- OUTSIDE RECORDS SUMMARY | 2025-04-03 12:06 | XMS_ITS | Encounter Summary ---
Author Organization [employer] ([place], [place], [place], [place], [place]) Address [address] [place] [address] Care Team Providers Care Lithographic Printing Machinist Name Role Phone Unavailable Primary Care Provider Unavailabl e Encounter Details Date Type Department Care Team (Late st Contact Info) Description 06/03/2018 Transcribed Document [facility] [place] [facility] [place] [address] ProviderEbenezer MD [address] [place] [address] Social History Tobacco Use Types [...] - Historical ProviderMD - 06/03/2018 12:08 PM ENGRAVER SET UP OPERATOR ED Triage Entered On: 06/03/2018 12:17 EST Performed On: 06/03/2018 12:12 EST by KANU VELEZ RN ED Triage Across the Room Triage Date/Time : 06/03/2018 12:12 EST Chief Complaint : lacerations to rt index and left middle finger s/p picking up a glass that shattered sloop captain. lacerations noted with bleeding controlled KANU EVLEZ RN - 06/03/2018 12:12 EST DCP GENERIC [...] 12:17:41 EST) Problems(Active) HTN (hypertension) (SNOMED CT :7284722498 ) Name of Problem: HTN (hypertension) ; Recorder: KANU VELEZ RN; Confirmation: Confirmed ; Classification: Medical ; Code: [id number] ; Contributor System: [employer] ; Last Updated: 06/03/2018 12:14 EST ; Life Cycle Date: 06/03/2018 ; Life Cycle Status: Active ; Vocabulary: SNOMED CT Diagnoses(Active) Finger laceration Date: 06/03/2018 ; Diagnosis Type: Reason For Visit ; Confirmation: Complaint of ; Clinical Dx: Finger laceration ; Classification: Medical ; Clinical Service: Emergency medicine ; Code: PNED ; Probability: 0 ; Diagnosis Code: [id number] ED Height and Weight Height Source : Stated Height Entry Format : [place] Height, Feet : 6 ft(Converted to: 183 cm, 72 Inch) Height, Inches : 4 Inch(Converted to: 0 ft 4 Inch, 10.16 cm) Clinical Height : 193.04 cm Weight Source, ED : Standing scale Weight Entry Format : [place] Weight, Pounds : 265 lb Clinical Dosing Weight : 120.45 kg Body Surface Area (BSA) : 2.5 m2 Body Mass Index : 32.3 kg/m2 (HI) [place] Body Weight (IBW) : 85.74 kg KANU [...]
--- OUTSIDE RECORDS SUMMARY | 2025-04-03 12:06 | XMS_ITS | Encounter Summary ---
Author Organization [facility] Address [address] [place] [address] Care Team Providers Care Parking Lot Laborer Name Role Phone Enedina Mcguire NP Primary Care Provider + [phone] Maureen Pantoja RN Unavailable Unavail able Chris Orosco MD Unavailable [phone] Source Comments This information has been disclosed [...] release of HIV test results or diagnoses. [id number] Encounter Details Date Type Department Care Team (Late st Contact Info) Description 02/23/2025 Chart Note [facility] Liver Transplant at [address] [phone] Marlene Ro MA 02/18 Labs entered from [facility] Social [...] Recorded In the past 12 months has [facility] [place] electric, gas, oil, or water company threatened [...] were not included. 02/18 Labs entered from [facility] Pet Pending documented in this encounter [...] Resulting Agency Comment [facility] Result [facility] LAB BLOOD ORDERABLES Denisse l Result * (ABNORMAL) Renal Function Panel w/o EGFR (02/18/2025 10:34 AM EDT) Glucose 84 BUN 24 CO2 31(A) 13 - 22 mmol/L Creatinine 1.10 Potassium 4.3 Sodium 140 Chloride 99 Phosphorus 4.9 2.5 - 4.9 mg/dL Calcium 9.1 EGFR 74 mg/dL Albumin 4.4 3.5 - 5.0 g/dL Blood Narrative Resulting Agency Comment [facility] Result [facility] LAB BLOOD ORDERABLES Denisse l Result * Tacrolimus level (02/18/2025 10:34 AM EDT) [facility] Tacrolimus Lvl 10.7 6 - 15 ng/mL Whole Blood Narrative Resulting Agency Comment [facility] Result [facility] LAB BLOOD ORDERABLES Denisse l Result * Creatinine, urine, random (02/18/2025 10:34 AM EDT) Pathologist [facility] Creatinine, Urine 54 Urine Narrative Resulting Agency Comment [facility] Result [facility] URINE ORDERABLES Final Re sult * Urinalysis w/Rfl to Microscopic (02/18/2025 10:34 AM EDT) Glucose, UA Negative Negative Ketones, UA Negative Negative Blood, UA Negative Negative Bilirubin, UA Negative Negative Urobilinogen, UA Normal Normal Protein, UA Negative Negative pH, UA 5.5 4.5 - 8.0 Specific Mckenzie, UA 1.015 1.005 - 1.030 Clarity, UA Clear Clear Color, UA Yellow Light Yellow, Yellow Urine Narrative Resulting Agency Comment [facility] Historical Provider URINE ORDERABLES Final Re [...] 4.9 10^3/mL Blood Narrative Resulting Agency Comment [facility] Historical Provider LAB BLOOD ORDERABLES Denisse l Result * Urine Protein, Tot, Random (w/o Creat) (02/18/2025 10:34 AM EDT) Total Protein, Ur 22.0 Urine Narrative Resulting Agency Comment [facility] Historical Provider URINE ORDERABLES Final Re sult * Hepatic Function Panel (02/18/2025 10:34 AM EDT) Bilirubin, Direct 0.0 Bilirubin, Indirect 0.5 Alkaline Phosphatase 85 ALT 19 AST 24 Total Bilirubin 0.5 Total Protein 7.1 Plasma Narrative Resulting Agency Comment [facility] [...] as of this encounter Care Teams Parking Lot Laborer Relationship Specialty Start Date End Date Enedina Mcguire NP [address] [place] [address] PCP - General Internal Medicine 10/05/24 Maureen Pantoja, ЮЛИЯ Txp Post Coordinator Transplant Hepatology 10/28/24 Chris Orosco MD [address] [place] [address] [place] [address] Consulting Physician Transplant Hepatology 02/26/25 documented as of this encounter
--- OUTSIDE RECORDS SUMMARY | 2025-04-03 12:06 | XMS_ITS | Clinical Summary ---
Author Organization [facility] Address [address] [place] [id number] Care Team Providers Care Technology Professional Name Role Phone Enedina Mcguire NP Primary Care Provider + [phone] Maureen Pantoja RN Unavailable Unavail able Chris Orosco MD Unavailable [phone] Source Comments This information has been disclosed [...] therelease of HIV test results or diagnoses. [id number] Allergies Active Allergy Reactions Criticality Noted [...] Encounter for therapeutic drug monitoring,S/P liver transplant ([facility]),Hypomagne semia,Kidney transplant recipient,Hypertens ion, unspecified type,Gastroesophage al [...] for therapeutic drug monitoring,S/P liver transplant ([facility]),Hypomagne semia,Kidney transplant recipient,Hypertens ion, unspecified type,Gastroesophage al reflux disease, unspecified whether esophagitis present Take 1 tablet by mouth twice daily 60 tablet 5 025 Active testosterone cypionate 200 mg/mL Kit Inject into the muscle. 021 Active mycophenolate (CELLCEPT) 250 mg capsuleIndications: Encounter for therapeutic drug monitoring,S/P liver transplant ([facility]),Hypomagne semia,Kidney transplant recipient,Hypertens ion, unspecified type,Gastroesophage al reflux disease, unspecified whether esophagitis present Take 1 capsule (250 mg total) by mouth 2 times a day. 60 capsule 5 025 Active predniSONE (DELTASONE) 5 MG tablet Take 1 tablet (5 mg total) by mouth daily. 025 Active NIFEdipine (PROCARDIA-XL) 30 MG (OSM) 24 hr tabletIndications:E ncounter for therapeutic drug monitoring,S/P liver transplant ([facility]),Hypomagne semia,Kidney transplant recipient,Hypertens ion, unspecified type,Gastroesophage al reflux disease, unspecified whether esophagitis present Take 1 tablet by mouth once daily 30 tablet Active tacrolimus (PROGRAF) 1 MG capsuleIndications: Prevention of Kidney Transplant Rejection,Preventio n of Liver Transplant Rejection Take 5 capsules (5 mg total) by mouth 2 times a day. Indications: Prevention of Kidney Transplant Rejection, Prevention of Liver Transplant Rejection 300 capsule 5 Active NIFEdipine (PROCARDIA-XL) 30 MG (OSM) 24 hr tabletIndications:E ncounter for therapeutic drug monitoring,S/P liver transplant ([facility]),Hypomagne semia,Kidney transplant recipient,Hypertens ion, unspecified type,Gastroesophage al reflux disease, unspecified whether esophagitis present Take 1 tablet by mouth once daily 30 tablet 2 025 2024 Discontinued predniSONE (DELTASONE) 5 MG tablet [...] 5 025 2024 Discontinued(R efill / Reorder) tacrolimus (PROGRAF) 1 MG capsuleIndications: Prevention of Kidney Transplant Rejection,Preventio n of Liver Transplant Rejection Take 5 capsules (5 mg total) by mouth every morning AND 6 capsules (6 mg total) every evening. Indications: Prevention of Kidney Transplant Rejection, Prevention of Liver Transplant Rejection. 330 capsule 5 03/26/20 25 4:20 PM EST 025 2024 Discontinued Active Problems Problem Noted [...] with SBP, s/p CTX x5d; will cont alf ppx with Cipro 500mg daily - HE: [...] Encounters Date Type Department Care Team Description 03/31/2025 Refill [facility] at [address] [place] [address] Harvey Domínguez III, MD 03/30/2025 Chart Note [facility] at [address] [place] [address] Marlene Ro MA 03/27 Labs entered from [facility] 03/24/2025 Telephone [facility] at [address] [place] [address] Maureen Pantoja, ЮЛИЯ Results; Medication Dose Change 03/20/2025 Chart Note [facility] at [address] [place] [address] Marlene Ro MA 03/20 Labs entered from [facility] 03/19/2025 Telephone [facility] at [address] [address] Maureen Pantoja, RN Results 03/16/2025 Telephone [facility] at [address] [address] Lizeth Walden, ЮЛИЯ 03/16/2025 Chart Note [facility] at [address] [address] Marlene Ro MA Magnesium Level from 03/1303/16/2025 Telephone [facility] at [address] [address] Mitzy Schneider MA 03/13/2025 Telephone [facility] at [address] [address] Mitzy Schneider MA Critical Lab Results 03/12/2025 Refill [facility] at [address] [address] Lydia Sanchez MD Encounter for therapeutic drug monitoring; S/P liver transplant ([facility]); Hypomagnesemia; Kidney transplant recipient; Hypertension, unspecified type; Gastroesophageal reflux disease, unspecified whether esophagitis present 03/10/2025 Telephone [facility] at [address] [address] Lizeth Walden, ЮЛИЯ 03/10/2025 Telephone [facility] at [address] [phone] Maureen Pantoja, ЮЛИЯ Results; Medication Dose Change 03/10/2025 Chart Note [facility] at [address] [place] [phone] Marlene Ro MA 03/10 Labs entered from [facility] 03/10/2025 Telephone [facility] at [address] [place] [phone] Marlene Ro MA 03/10/2025 Telephone [facility] at [address] [place] [phone] Marisela Martinez MA Critical Lab Results 03/06/2025 Telephone [facility] at [address] [place] [phone] Maureen Pantoja, RN Results 03/04/2025 Chart Note [facility] at [address] [place] [phone] Marlene Ro MA 03/04 Labs entered from [facility] 03/02/2025 Refill [facility] [address] [place] [phone] Feliciano Gomez, EZEKIEL 03/02/2025 Telephone [facility] at [address] [place] [phone] Marlene Ro MA 02/26/2025 Telephone [facility] at [address] [place] [phone] Maureen Pantoja, ЮЛИЯ Results; Medication Dose Change 02/26/2025 Chart Note [facility] at [address] [place] [phone] Marlene Ro MA 02/24 Labs entered from [facility] 02/25/2025 10:50 AM EDT Office Visit [facility] at [address] [place] [phone] Bruno Gonzalez MD Kidney transplant recipient (Primary Dx); Neck pain with history of cervical spinal surgery; S/P liver transplant ([facility]) 02/25/2025 Refill [facility] at [address] [place] [phone] Lydia Sanchez MD Encounter for therapeutic drug monitoring; S/P liver transplant ([facility]); Hypomagnesemia; Kidney transplant recipient; Hypertension, unspecified type; Gastroesophageal reflux disease, unspecified whether esophagitis present 02/23/2025 Chart Note [facility] at [address] [phone] Marlene Ro MA 02/18 Labs entered from [facility] 02/23/2025 Telephone [facility] at [address] [place] [phone] Marlene Ro MA 02/17/2025 Telephone [facility] at [address] [place] [phone] Marlene Ro MA 02/13/2025 Telephone [facility] at [address] [place] [phone] Marisela Martinez MA Results 02/12/2025 10:50 AM EDT Office Visit [facility] at [address] [place] [phone] Chris Orosco MD Liver transplant recipient ([facility]) (Primary Dx); History of systemic steroid therapy; Kidney transplant recipient; Immunosuppressive management encounter following liver transplant ([facility]); Encounter for monitoring tacrolimus therapy; Vitamin D deficiency; Encounter for therapeutic drug monitoring; S/P liver transplant ([facility]); Hypomagnesemia; Hypertension, unspecified type; Gastroesophageal reflux disease, unspecified whether esophagitis present; Alcohol use disorder; Immunosuppression ([facility]); Viral disease exposure 02/12/2025 Social Work [facility] at [address] [phone] Kaylin Willard MSW 02/12/2025 Telephone [facility] at [address] [phone] Maureen Pantoja, ЮЛИЯ Results 02/10/2025 Chart Note [facility] at [address] [phone] Marlene Ro MA 02/10 Labs entered from [facility] 02/09/2025 Chart Note [facility] at [address] [phone] Marisela Martinez MA 02/09/2025 Telephone [facility] at [address] [phone] Marisela Martinez MA 02/08/2025 Refill [facility] at [address] [place] [phone] Harvey Domínguez III, MD 02/04/2025 Telephone [facility] at [address] [phone] Marlene Ro MA 02/03/2025 Telephone [facility] at [address] [phone] Mitzy Schneider MA Results 02/03/2025 Telephone [facility] at [address] [place] [phone] Marlene Ro MA 02/03/2025 Chart Note [facility] at [address] [place] [phone] Marlene Ro MA 02/03 Labs entered from [facility] 01/27/2025 6:28 PM EDT - 01/30/2025 2:25 PM EDT Hospital Encounter [address] [place] [phone] Sunny Wei MD Haugen, Christine, MD Diarrhea of presumed infectious origin (Primary Dx); Immunosuppression (CMS-HCC) Discharge Disposition: Home or Self Care WITHOUT Home Care Services 01/27/2025 Travel 01/27/2025 Telephone [facility] at [address] [place] [address] Marlene Ro MA 01/26/2025 Telephone [facility] at [address] [place] [address] Maureen Pantoja, traditional chinese herbalist Management 01/23/2025 Telephone [facility] at [address] [place] [address] Maureen Pantoja, RN Results 01/21/2025 Refill [facility] at [address] [place] [address] Rose Montelongo MD 01/21/2025 Refill [facility] at [address] [place] [address] Lydia Sanchez MD Encounter for therapeutic drug monitoring; S/P liver transplant ([facility]); Hypomagnesemia; Kidney transplant recipient; Hypertension, unspecified type; Gastroesophageal reflux disease, unspecified whether esophagitis present 01/21/2025 Refill [facility] at [address] [place] [address] Harvey Domínguez III, MD Encounter for therapeutic drug monitoring; S/P liver transplant ([facility]); Hypomagnesemia; Kidney transplant recipient; Hypertension, unspecified type; Gastroesophageal reflux disease, unspecified whether esophagitis present 01/20/2025 Chart Note [facility] at [address] [phone] Marlene Ro MA 01/20 Labs entered from [facility] 01/19/2025 Telephone [facility] at [address] [phone] Gladis Chisholm MA Critical Lab Results 01/17/2025 Refill [facility] at [address] [place] [address] Harvey Domínguez III, MD Encounter for therapeutic drug monitoring; S/P liver transplant ([facility]); Hypomagnesemia; Kidney transplant recipient; Hypertension, unspecified type; Gastroesophageal reflux disease, unspecified whether esophagitis present 01/16/2025 Telephone [facility] at [address] [place] [address] Maureen Pantoja, RN Results 01/15/2025 Chart Note [facility] at [address] [place] [address] Marlene Ro MA 01/14 Labs entered from [facility] 01/15/2025 Telephone [facility] at [address] [place] [phone] Marlene Ro MA 01/15/2025 Telephone [facility] at [address] [place] [address] Kaylin Willard MSW 01/14/2025 Telephone [facility] at [address] [place] [phone] Marlene Ro MA 01/09/2025 Chart Note [facility] at [address] [place] [phone] Marlene Ro MA 01/09 Labs entered from [facility] 01/09/2025 Telephone [facility] at [address] [place] [phone] Marisela Martinez MA Results 01/08/2025 Telephone [facility] at [address] [place] [phone] Maureen Pantoja, RN Results 01/06/2025 9:30 AM EDT Office Visit [facility] at [address] [place] [phone] Leisa Juarez MD Kidney transplant recipient (Primary Dx); Hypomagnesemia; Hyperphosphatemia; Immunosuppression (CMS-HCC); Viral disease exposure; Hypertension, unspecified type 01/06/2025 8:20 AM EDT Office Visit [facility] at [address] [place] [phone] Cosmo Pacheco MD Paci, Philippe, MD S/P liver transplant (CMS-HCC) (Primary Dx); Immunosuppression (CMS-HCC); Kidney transplant recipient; Alcohol use disorder 01/06/2025 Social Work [facility] at [address] [place] [address] Kaylin Willard MSW 01/05/2025 Chart Note [facility] at [address] [place] [address] Marlene Ro MA 01/05 Labs entered from [facility] 01/05/2025 Telephone [facility] at [address] [place] [address] Marisela Martinez MA Critical Lab Results 01/05/2025 Telephone [facility] at [address] [place] [address] Maureen Pantoja RN Results from Last 3 Months Social [...] as 4 glasses of wine a days mInfo Answer Date Recorded In the past 12 months has [employer], gas, oil, or water [employer] threatened to shut off services in your [...] 10/25/2024, 10/05/2024, Additional history exists Renal Function/GFR 03/27/2026 03/27/2025, 1 05/20/2024, 03/10/2025, Additional history exists Immunization: DTaP/Tdap/Td ( 3 - Td or Tdap) 06/03/2028 06/03/2018, 09/13/2010 Hepatitis C Screening (MyChart) Completed 10/25/2024, 10/07/2024, 10/06/2024, Additional history exists HIV Screening Completed 11/25/2024, 10/12, 10/07/2024 Procedures Procedure Name Priority Date/Time Associated Diagnosis Comments MAGNESIUM Routine 03/27/2025 10:52 AM EST RENAL FUNCTION PANEL W/O EGFR Routine 03/27/2025 10:52 AM EST CREATININE, URINE, RANDOM Routine 2024 10:52 AM EST URINALYSIS W/RFL TO MICROSCOPIC Routine 03/27/2025 10:52 AM EST CBC AND DIFFERENTIAL Routine 03/27/2025 10:52 AM EST URINE PROTEIN, TOTAL, RANDOM (W/O CREATININE) Routine 03/27/2025 10:52 AM EST HEPATIC FUNCTION PANEL Routine 10:52 AM EST URINE CULTURE Routine 03/27/2025 10:52 AM EST TACROLIMUS LEVEL Routine 03/20/2025 7:15 AM EST PHATIDYLETHANOL (PETH) Routine 7:15 AM EST BK VIRUS QUANTITATIVE BY PCR, BLOOD Routine 03/20/2025 7:15 AM EST CREATININE, URINE, RANDOM Routine 2024 7:15 AM EST URINE PROTEIN, TOTAL, RANDOM (W/O CREATININE) Routine 03/20/2025 7:15 AM EST MAGNESIUM Routine 03/20/2025 7:15 AM EST URINALYSIS W/RFL TO MICROSCOPIC Routine 03/20/2025 7:15 AM EST RENAL FUNCTION PANEL W/O EGFR Routine 03/20/2025 7:15 AM EST CBC AND DIFFERENTIAL Routine 03/20/2025 7:15 AM EST HEPATIC FUNCTION PANEL Routine 7:15 AM EST URINE CULTURE Routine 03/20/2025 7:15 AM EST MAGNESIUM Routine 03/13/2025 2:32 PM EDT PHATIDYLETHANOL [...] Routine 9:30 PM EDT UPPER RESPIRATORY VIRAL/BACTERIAL PANEL-STATISTICIAN THEORETICAL ONLY Routine 01/27/2025 9:30 PM EDT LACTIC [...] S Routine 01/27/2025 8:20 PM EDT FUNGITELL [id number] Routine 01/28/20 8:20 PM EDT KATIE SCHAFER [...] URINE CULTURE Routine 01/05/2025 9:27 AM EDT HIV-1 RNA, QUANTITATIVE, PCR Routine 11/25/2024 8:42 AM EDT S/P liver transplant (CMS-HCC) Immunosuppression ([facility]) Viral disease exposure HEPATITIS C ANTIBODY STAT 10/25/2024 10:17 PM EDT TSH Routine 10/07/2024 6:37 PM EDT from Last 3 Months or Most Recently Relevant to Health Maintenance Results * Urine Protein, Tot, Random (w/o Creat) (03/27/2025 10:52 AM EST) Only the most recent of12 resultswithin the time period is included. Total Protein, Ur 24.0 Urine Narrative Resulting Agency Comment [facility] Provider Result Type Result [facility] Provider URINE ORDERABLES Final Re sult * Hepatic Function Panel (03/27/2025 10:52 AM EST) Only the most recent of16 resultswithin the time period is included. Bilirubin, Direct 0.2 Bilirubin, Indirect 0.7 Alkaline Phosphatase 74 ALT 25 AST 33 Total Bilirubin 0.9 Total Protein 7.1 Plasma Narrative Resulting Agency Comment [facility] Historical Provider LAB BLOOD ORDERABLES Denisse l Result * Creatinine, urine, random (03/27/2025 10:52 AM EST) Only the most recent of12 resultswithin the time period is included. Creatinine, Urine 81 Urine Narrative Resulting Agency Comment [facility] us Historical Provider URINE ORDERABLES Final Re sult * Urinalysis w/Rfl to Microscopic (03/27/2025 10:52 AM EST) Only the most recent of12 resultswithin the time period is included. [facility] Glucose, UA Negative Negative Ketones, UA Negative Negative Blood, UA Negative Negative Bilirubin, UA Negative Negative Urobilinogen, UA Normal Normal Protein, UA Negative Negative Nitrite, UA Negative Negative pH, UA 7.0 4.5 - 8.0 Specific [place], UA 1.010 1.005 - 1.030 Clarity, UA Clear Clear Color, UA Yellow Light Yellow, Yellow Urine Narrative Resulting Agency Comment [facility] Provider URINE ORDERABLES Final Re sult * (ABNORMAL) CBC and differential (03/27/2025 10:52 AM EST) Only the most recent of12 resultswithin the time period is included. [facility] Hemoglobin 14.4 13.5 - 17.5 g/dL Hematocrit [...] 9.0 10^3/mL Blood Narrative Resulting Agency Comment [facility] Result [facility] Provider LAB BLOOD ORDERABLES Denisse l Result * Urine culture (03/27/2025 10:52 AM EST) Only the most recent of6 resultswithin the time period is included. [facility] Urine Culture, Comprehensive no growth after 48 hours URINE SPECIMEN / Unknown Narrative Resulting Agency Comment [facility] Result [facility] MICROBIOLOGY - GENERAL OR DERABLES Final Result * (ABNORMAL) Magnesium (03/27/2025 10:52 AM EST) Only the most recent of16 resultswithin the time period is included. Pathologist [facility] Magnesium 1.1(A) 1.6 - 2.4 mg/dL Plasma Narrative Resulting Agency Comment [facility] Result [facility] Provider MD LAB BLOOD ORDERABLES Denisse l Result * (ABNORMAL) Renal Function Panel w/o EGFR (03/27/2025 10:52 AM EST) Only the most recent of12 resultswithin the time period is included. [facility] Glucose 110 BUN 12 CO2 25(A) 13 - 22 mmol/L Creatinine 1.20 Potassium 3.8 Sodium 136 Chloride 99 Phosphorus 3.8 2.5 - 4.9 mg/dL Calcium 9.7 EGFR 67 mg/dL Albumin 4.7 3.5 - 5.0 g/dL Blood Narrative Resulting Agency Comment [facility] Result [facility] LAB BLOOD ORDERABLES Denisse l Result * Phatidylethanol (PEth) (03/20/2025 7:15 AM EST) Only the most recent of7 resultswithin the time period is included. Pathologist [facility] Phosphatidylethanol (PEth) Positive 409 Whole Blood Result [facility] Provider LAB BLOOD ORDERABLES Denisse l Result * BK Virus Quantitative by PCR, Blood (03/20/2025 7:15 AM EST) Only the most recent of4 resultswithin the time period is included. [facility] BK Virus Quant PCR PL negative Plasma Result [facility] Provider LAB BLOOD ORDERABLES Denisse l Result * Tacrolimus level (03/20/2025 7:15 AM EST) Only the most recent of14 resultswithin the time period is included. Pathologist [facility] Tacrolimus Lvl 14.0 6 - 15 ng/mL Whole Blood [facility] Provider MD LAB BLOOD ORDERABLES Denisse l Result * Cytomegalovirus DNA, Quant, RT PCR (03/10/2025 9:29 AM EDT) Only the most recent of4 resultswithin the time period is included. Pathologist [facility] CMV Quant DNA PCR (Plasma) Negative Plasma Result [facility] Provider MD LAB BLOOD ORDERABLES Denisse l Result * Vitamin D 25 hydroxy (03/04/2025 11:29 AM EDT) Pathologist [facility] Vit D, 25-Hydroxy 38.4 Serum Narrative Resulting Agency Comment [facility] Result [facility] Provider LAB BLOOD ORDERABLES Denisse l Result * Clostridium difficile DNA Amplification (02/03/2025 11:04 AM EDT) Only the most recent of2 resultswithin the time period is included. Pathologist [facility] Clost. Diff DNA Amp. Positive Norovirus Detected FECES / Unknown Result [facility] Provider MD BODY FLUIDS AND STOOLS OR DERABLES Edited Result - Final * (ABNORMAL) Differential (01/30/2025 7:41 AM EDT) Only the most recent of2 resultswithin the time period is included. Pathologist [facility] Neutrophils Relative 39.1(L) 40.0 - 80.0 % 01/30/2025 8:09 AM EDT [facility] Lymphocytes Relative 43.8 15.0 - 45.0 % 01/30/2025 8:09 AM EDT [facility] Monocytes Relative 14.2(H) 0.0 - 12.0 % 01/30/2025 8:09 AM EDT [facility] Eosinophils Relative 2.2 0.0 - 8.0 % 01/30/2025 8:09 AM EDT [facility] Basophils Relative 0.7 0.0 - 1.0 % 01/30/2025 8:09 AM EDT [facility] nRBC 0 0 - 0 /100 WBC 01/30/2025 8:09 AM EDT [facility] Neutrophils Absolute 782(L) 1,520 - 8,640 /uL 01/30/2025 8:09 AM EDT [facility] Lymphocytes Absolute 876 570 - 4,860 /uL 01/30/2025 8:09 AM EDT [facility] Monocytes Absolute 284 0 - 1,296 /uL 01/30/2025 8:09 AM EDT [facility] Eosinophils Absolute 44 0 - 864 /uL 01/30/2025 8:09 AM EDT [facility] Basophils Absolute 14 0 - 108 /uL 01/30/2025 8:09 AM EDT [facility] Whole Blood 01/30/2025 7:41 AM EDT 01/30/2025 8:01 AM EDT [facility] LAB BLOOD ORDERABLES Final Resu lt [facility] [address] [place] [address], [facility] * (ABNORMAL) Renal Function Panel w/EGFR (01/30/2025 5:51 AM EDT) Only the most recent of3 resultswithin the time period is included. Sodium 139 133 - 146 mmol/L 01/30/2025 7:06 AM EDT [facility] Potassium 3.5 3.5 - 5.3 mmol/L 01/30/2025 7:06 AM EDT [facility] Chloride 105 98 - 110 mmol/L 01/30/2025 7:06 AM EDT [facility] CO2 26 21 - 33 mmol/L 01/30/2025 7:06 AM EDT [facility] Anion Gap 8 3 - 16 mmol/L 01/30/2025 7:06 AM EDT [facility] BUN 29(H) 7 - 25 mg/dL 01/30/2025 7:06 AM EDT [facility] Creatinine 1.14 0.60 - 1.30 mg/dL 01/30/2025 7:06 AM EDT [facility] Glucose 114(H) 70 - 100 mg/dL 01/30/2025 7:06 AM EDT [facility] Calcium 8.7 8.6 - 10.3 mg/dL 01/30/2025 7:06 AM EDT [facility] Phosphorus 5.1(H) 2.1 - 4.7 mg/dL 01/30/2025 7:06 AM EDT [facility] Albumin 4.1 3.5 - 5.7 g/dL 01/30/2025 7:06 AM EDT [facility] Osmolality, Calculated 295 278 - 305 mOsm/kg 01/30/2025 7:06 AM EDT [facility] EGFR 83 01/30/2025 7:06 AM EDT [facility] Comment:As of 2021, [...] Hill MD LAB BLOOD ORDERABLES Final Result [facility] [address] [place] [address], [facility] * (ABNORMAL) CBC (01/30/2025 5:51 AM EDT) Only the most recent of4 resultswithin the time period is included. WBC 2.1(L) 3.8 - 10.8 10E3/uL 01/30/2025 6:41 AM EDT [facility] RBC 3.41(L) 4.20 - 5.80 10E6/uL 01/30/2025 6:41 AM EDT [facility] Hemoglobin 11.2(L) 13.2 - 17.1 g/dL 01/30/2025 6:41 AM EDT [facility] Hematocrit 31.9(L) 38.5 - 50.0 % 01/30/2025 6:41 AM EDT [facility] MCV 93.7 80.0 - 100.0 fL 01/30/2025 6:41 AM EDT [facility] MCH 32.9 27.0 - 33.0 pg 01/30/2025 6:41 AM EDT [facility] MCHC 35.1 32.0 - 36.0 g/dL 01/30/2025 6:41 AM EDT [facility] RDW 14.8 11.0 - 15.0 % 01/30/2025 6:41 AM EDT [facility] Platelets 95(L) 140 - 400 10E3/uL 01/30/2025 6:41 AM EDT [facility] MPV 6.4(L) 7.5 - 11.5 fL 01/30/2025 6:41 AM EDT [facility] Whole Blood 01/30/2025 5:51 AM EDT 01/30/2025 6:33 AM EDT Carlton Hill MD LAB BLOOD ORDERABLES Final Result [facility] [address] [place] [address], [facility] * CT Neck With [...] cavity, parapharyngeal space, and retropharyngeal space. Normal order checker packer processer space, infratemporal fossa, and buccal space. Infrahyoid [...] oral cavity, parapharyngeal space, andretropharyngeal space. Normal order checker packer processer space, infratemporal fossa, andbuccal space. Infrahyoid neck: [...] Sed Rate (01/29/2025 5:55 AM EDT) Pathologist [facility] Sed Rate 2 0 - 15 mm/hr 01/29/2025 7:03 AM EDT [facility] Whole Blood 01/29/2025 5:55 AM EDT 01/29/2025 6:41 AM EDT us Feliciano Gomez VEGETABLE HARVEST WORKER LAB BLOOD ORDERABLES Final Resu lt [facility] [address] [place] [address], [facility] * C-Reactive Protein (01/29/2025 5:55 AM EDT) Pathologist [facility] CRP 4.1 1.0 - 10.0 mg/L 01/29/2025 7:13 AM EDT [facility] Plasma 01/29/2025 5:55 AM EDT 01/29/2025 6:41 AM EDT Feliciano Gomez [facility] BLOOD ORDERABLES Final Resu lt [facility] [address] * Giardia Cryptosporidium Antigens (Feces) (01/28/2025 9:27 PM EDT) Cryptosporidium Ag Negative Negative 2024 8:03 AM EDT [facility] Giardia Ag Negative Negative 01/29/2025 8:03 AM EDT [facility] Comment: Detection of Giardia and Cryptosporidium antigen is more sensitive and specific than microscopy. Because antigens are shed continuously, repeat testing is rarely warranted. Feces 01/28/2025 9:27 PM EDT 01/28/2025 10:07 PM EDT Comment:F Ruby Chiang MD MICROBIOLOGY - GENERAL ORDERAB LES Final Result Performing Organization Address City/[facility]/ZIP Co de Phone Number [facility] [address] * Ova and Parasite Comprehensive w/Giardia (Feces) (01/28/2025 9:27 PM EDT) Pathologist [facility] O & P Method: Concentration and Trichrome Stain [facility] Results No Amoeba, Ova, Or Parasites Seen. -- O and P examination of additional specimens is recommended only for symptomatic patients, immunosuppressed patients or those with an appropriate travel history. [facility] Feces FECES / Unknown 01/28/2025 9 :27 PM EDT 01/28/2025 10:07 PM EDT Comment:F Ruby Chiang MD MICROBIOLOGY - GENERAL ORDERAB LES Final Result [facility] [address] * Clostridium Difficile Toxin A/B Antigen (01/28/2025 1:21 PM EDT) CDIFF Tox AGN Negative Negative 01/28/2025 10:35 PM EDT [facility] Comment:C. difficile nucleic [...] STOOLS ORDERABL ES Final Result [facility] [address] [facility]. [place] [id number], [facility] * Phosphatidylethanol Confirmation, B (01/28/2025 [...] developed and its performance characteristics determined by [facility] in a manner consistent with CLIA requirements. This test has not been cleared or approved by the U.S. Food and Drug Administration. Test Performed by: [facility] [address] [place] [address] Oxygen Furnace Operator: Kathy Ortiz Ph.D.; CLIA# [id number] Whole Blood 01/28/2025 7:14 AM EDT 01/30/2025 9:58 AM EDT Carlton Hill MD LAB BLOOD ORDERABLES Final Result Performing Organization Address City/State/[facility] Co de Phone Number [facility] [address] * CT Head WO contrast (01/28/2025 12:35 [...] Detected Not Detected 01/28/2025 3:11 AM EDT [facility] Salmonella species Not Detected Not Detected 01/28/2025 3:11 AM EDT [facility] Shigella species Not Detected Not Detected 01/28/2025 3:11 AM EDT [facility] Vibrio Group (Vibrio cholerae, Vibrio parahaemolyticus) Not Detected Not Detected 01/28/2025 3:11 AM EDT [facility] Yersinia enterocolitica Not Detected Not Detected 01/28/2025 3:11 AM EDT [facility] Shiga toxin 1 Not Detected Not Detected 01/28/2025 3:11 AM EDT [facility] Shiga toxin 2 Not Detected Not Detected 01/28/2025 3:11 AM EDT [facility] Norovirus Not Detected Not Detected 01/28/2025 3:11 AM EDT [facility] Rotavirus Not Detected Not Detected 01/28/2025 3:11 AM EDT [facility] Comment: The Enteric [...] FLUIDS AND STOOLS ORDERABLE S Final Result [facility] [address] [place] [address], [facility] * Respiratory viral panel (01/27/2025 9:30 PM EDT) Adenovirus Not Detected Not Detected 01/28/2025 12:20 AM EDT [facility] Coronavirus (229E,HKU1,NL63,OC 43) Not Detected Not Detected 01/28/2025 12:20 AM EDT [facility] SARS-CoV-2 Not Detected Not Detected 01/28/2025 12:20 AM EDT [facility] Human Metapneumovirus Not Detected Not Detected 01/28/2025 12:20 AM EDT [facility] Human Rhinovirus/Enterov irus Not Detected Not Detected 01/28/2025 12:20 AM EDT [facility] Influenza A Not Detected Not Detected 01/28/2025 12:20 AM EDT [facility] Influenza A H1 Not Detected Not Detected 01/28/2025 12:20 AM EDT [facility] Influenza A/H1-2009 Not Detected Not Detected 01/28/2025 12:20 AM EDT [facility] Influenza A H3 Not Detected Not Detected 01/28/2025 12:20 AM EDT [facility] Influenza B Not Detected Not Detected 01/28/2025 12:20 AM EDT [facility] Parainfluenza 1 Not Detected Not Detected 01/28/2025 12:20 AM EDT [facility] Parainfluenza 2 Not Detected Not Detected 01/28/2025 12:20 AM EDT [facility] Parainfluenza 3 Not Detected Not Detected 01/28/2025 12:20 AM EDT [facility] Parainfluenza 4 Not Detected Not Detected 01/28/2025 12:20 AM EDT [facility] Resp. Syncycial Virus A Not Detected Not Detected 01/28/2025 12:20 AM EDT [facility] Resp. Syncycial Virus B Not Detected Not Detected 01/28/2025 12:20 AM EDT [facility] Chlamydia pneumoniae Not Detected Not Detected 01/28/2025 12:20 AM EDT [facility] Mycoplasma pneumoniae Not Detected Not Detected 01/28/2025 12:20 AM EDT [facility] Comment: The Respiratory [...] results have been sent to the [facility] in accordance with state requirements. For a fact sheet for healthcare providers, see https://www.fda.gov/media/676018/download. For a fact sheet for patients, see https://www.fda.gov/media/233537/download. Nasopharyngeal Swab NASOPHARYNGEAL STRUCTURE / Unknown 01/27/2025 9:30 PM EDT 01/27/2025 10:20 PM EDT Shelby Blanco MD BODY FLUIDS AND STOOLS ORDERABLE S Final Result Performing Organization Address [facility]/ZIP Co de Phone Number [facility] [address] [place] [address]. [address] * Lactic acid, venous, whole blood (01/27/2025 9:30 PM EDT) [facility] Lactate, Shakeel 1.4 0.5 - 1.6 mmol/L 01/27/2025 9:42 PM EDT [facility] Blood, Venous 01/27/2025 9:3 0 PM EDT 01/27/2025 9:39 PM EDT us Pamela JACOME LAB BLOOD ORDERABLES Final Res ult Performing Organization Address [facility] Co de Phone Number [facility] [address] [facility]. [address] * Histoplasma/Blastomyces Ag, EIA, U (01/27/2025 8:44 PM EDT) [facility] Histoplasma/Blasto myces Ag Result (Urine) Not Detected Not Detected 01/31/2025 11:06 AM EDT [facility] Comment: No antigen from Histoplasma or Blastomyces detected. False negative results may occur depending on extent of disease, and/or site of infection. Repeat testing on a new specimen if clinically indicated. Histoplasma/Blasto myces Ag Value (Urine) Not Detected ng/mL 01/31/2025 11:06 AM EDT [facility] Comment: ADDITIONAL INFORMATION This test was developed and its performance characteristics determined by [facility] in a manner consistent with CLIA requirements. This test has not been cleared or approved by the U.S. Food and Drug Administration. Test Performed by: [facility] [address] [place] [address] Oxygen Furnace Operator: Kathy Ortiz Ph.D.; CLIA# [id number] Urine URINE SPECIMEN / Unknown 01/27/2025 8:44 PM EDT 01/31/2025 11:06 AM EDT Shelby Blanco MD URINE ORDERABLES Final Result Performing Organization Address [facility] Co de Phone Number [facility] [address] [facility]. [address] * Strep Pneumo-Legionella Urine Antigen (01/27/2025 8:44 PM EDT) Strept Pneumo Ag Negative Negative 01/27/2025 11:12 PM EDT [facility] Legionella Antigen Negative Negative 01/27/2025 11:[address] [facility] Urine URINE SPECIMEN / Unknown 01/27/2025 8:44 PM EDT 01/27/2025 10:21 PM EDT Narrative [facility] - 01/27/2025 11:12 PM EDT Positive indicates detection of either Streptococcus pneumoniae antigen or Legionella pneumophila serogroup 1 antigen. Negative results do not rule out pneumococcal infection or infection with L. pneumophila serogroup 1, other serogroups of L. pneumophila, or other Legionella species. Shelby Blanco MD URINE ORDERABLES Final Result Performing Organization Address City/[facility] Co de Phone Number [facility] [address] * (ABNORMAL) Urinalysis, Microscopic (01/27/2025 8:44 PM EDT) RBC, UA <1 0 - 3 /HPF 01/27/2025 9:32 PM EDT [facility] WBC, UA 1 0 - 5 /HPF 01/27/2025 9:32 PM EDT [facility] Hyaline Casts, UA 75(H) 0 - 2 /LPF 01/27/2025 9:32 PM EDT [facility] Mucus, UA Present(A) None Seen /HPF 01/27/2025 9:32 PM EDT [facility] Urine 01/27/2025 8:44 PM EDT 01/27/2025 9:01 PM EDT us Pamela JACOME URINE ORDERABLES Final Result [facility] [address] [place] [address], [facility] * (ABNORMAL) Urinalysis-Macroscopic w/Rfx to Microsco (01/27/2025 8:44 PM EDT) Color, UA Yellow Yellow,Straw 01/27/2025 9:32 PM EDT [facility] Clarity, UA Clear Clear 01/27/2025 9:32 PM EDT [facility] Specific [place], UA 1.015 1.005 - 1.035 01/27/2025 9:32 PM EDT [facility] pH, UA 5.5 5.0 - 8.0 01/27/2025 9:32 PM EDT [facility] Protein, UA 30(A) Negative mg/dL 01/27/2025 9:32 PM EDT [facility] Glucose, UA Negative Negative mg/dL 01/27/2025 9:32 PM EDT [facility] Ketones, UA 20(A) Negative mg/dL 01/27/2025 9:32 PM EDT [facility] Bilirubin, UA Negative Negative 01/27/2025 9:32 PM EDT [facility] Blood, UA Negative Negative 01/27/2025 9:32 PM EDT [facility] Nitrite, UA Negative Negative 01/27/2025 9:32 PM EDT [facility] Urobilinogen, UA <2.0 0.2 - 1.9 mg/dL 01/27/2025 9:32 PM EDT [facility] Leukocyte Esterase, UA Negative Negative 01/27/2025 9:32 PM EDT [facility] Urine 01/27/2025 8:44 PM EDT 01/27/2025 8:53 PM EDT us Pamela JACOME URINE ORDERABLES Final Result Performing Organization Address [facility] Co de Phone Number [facility] [address] * Histoplasma/Blastomyces Ag, EIA, S (01/27/2025 8:20 PM EDT) Histoplasma/Blasto myces Ag Result (Serum) Not Detected Not Detected 01/30/2025 12:49 PM EDT [facility] Comment: No antigen from Histoplasma or Blastomyces detected. False negative results may occur depending on extent of disease, and/or site of infection. Repeat testing on a new specimen if clinically indicated. Histoplasma/Blasto myces Ag Value (Serum) Not Detected ng/mL 01/30/2025 12:49 PM EDT [facility] Comment: ADDITIONAL INFORMATION This test was developed and its performance characteristics determined by [facility] in a manner consistent with CLIA requirements. This test has not been cleared or approved by the U.S. Food and Drug Administration. Test Performed by: [facility] [place] [address] Oxygen Furnace Operator: Kathy Ortiz Ph.D.; CLIA# [id number] Serum SERUM SPECIMEN / Unknown 01/27/2025 8:20 PM EDT 01/30/2025 12:49 PM EDT Comment:S us Shelby Blanco MD LAB BLOOD ORDERABLES Final Resul t Performing Organization Address City/[facility]/ZIP Co de Phone Number [facility] [address] * Fungitell (01/27/2025 8:20 PM EDT) Fungitell Value <31.25 pg/mL 4:19 PM EDT [facility] Reference Value Comment 4:19 PM EDT [facility] Comment:Negative: <60, Posit bradley: >/=60 Clinical Relevance Notes 2024 4:19 PM EDT [facility] Comment: The Fungitell test [...] Cryptococcus, which produce very low levels of (1,3)-xosh-L-canexw. This test will not detect the zygomycetes, such as Absidia, Blastomyces, Mucor, and Rhizopus, which are not known to produce (1,3)-mxdr-X-jpvomz. In addition, the yeast phase of Blastomyces dermatitidis produces little (1,3)-ogfs-S-xmpqry and may not be detected by the assay. Disclaimer: Notes 02/02/2025 4:19 PM EDT [facility] Comment: This test has been cleared or approved for diagnostic use by the U.S. Food and Drug Administration. Performance characteristics were verified by [employer]. Electronically signed by: Comment 02/02/2025 4:19 PM EDT [facility] Comment:Usha Landin Fungitell Result Comment 02/03/20 4:19 PM EDT [facility] Comment:Negative Interpretation Notes 02/02/2025 4:19 PM EDT [facility] Comment: (1,3) Gnik-D-Fedsjs was NOT DETECTED in the sample. Reasons for negative results could include the patient being in the early stage of infection before detectable levels of (1,3) Uhqo-O-Ofmvex are present. Clinical diagnosis should be made in the context of the patient's complete medical history. Serum 01/27/2025 8:20 PM EDT 02/02/2025 5:07 PM EDT [facility] - 02/02/2025 5:07 PM EDT PERFORMED AT: [facility] [employer] [address], [place] [id number] CLINICAL ABSTRACTOR: Cyril Porter, PhD PHONE: [phone] Shelby Blanco MD LAB BLOOD ORDERABLES Final Resul t [facility] [address] [facility]. [address] * Cryptococcus Ag (01/27/2025 8:20 PM EDT) Crypto Ag, Ser Negative Negative 01/27/2025 11:41 PM EDT [facility] Crypto Ag Titer, Ser Not Applicable 01/27/2025 11:41 PM EDT [facility] Serum SERUM SPECIMEN / Unknown 01/27/2025 8:20 PM EDT 01/27/2025 10:04 PM EDT Comment:S Shelby Blanco MD LAB BLOOD ORDERABLES Final Resul t Performing Organization Address City/[facility] Co de Phone Number [facility] [address] [facility]. [address] * BK PCR, Blood (Renal Txp and BMT only) (01/27/2025 8:20 PM EDT) Pathologist [facility] BKV IU DNA Quant, Blood Not Detected IU/mL 01/29/2025 1:48 PM EDT [facility] Comment: Beginning August 23, 2021, [facility] has transitioned BK viral load testing [...] log 10 IU/mL 01/29/2025 1:48 PM EDT [facility] Comment:BKV DNA Not Detected Plasma 01/27/2025 8:20 PM EDT 01/27/2025 9:49 PM EDT Shelby Blanco MD LAB BLOOD ORDERABLES Final Resul t Performing Organization Address [facility] de Phone Number [facility] [address] [facility]. [address] * Katie-Schafer Virus (EBV) PCR (01/27/2025 8:20 PM EDT) EBV DNA, Quantitative PCR Not Detected IU/mL 01/28/2025 10:54 AM EDT [facility] EBV DNA, Log10 See Note log 10 IU/mL 01/28/2025 10:54 AM EDT [facility] Comment: Beginning September 05, 2022, [facility] has transitioned EBV viral load testing [...] Final Resul t Performing Organization Address [facility]/ZIP Co de Phone Number [facility] [address] [facility]. [address] * Adenovirus PCR (01/27/2025 8:20 PM EDT) Adenovirus, Quantitative PCR 0 0 - 0 copies/mL 02/03/2025 1:12 PM EDT [facility] Comment: Testing performed by [facility], [address] [place] [address], [place], [place]. This test(s) was developed and its performance characteristics determined and validated by the Department of Pathology and Laboratory Medicine at [facility]. It has not been cleared or [...] [facility]/ZIP Co de Phone Number [facility] [address] [place] [address]. [address] * Aspergillus Ag (01/27/2025 8:20 PM EDT) Aspergillus Ag. 0.03 0.00 - 0.49 Index 01/30/2025 5:[address] [facility] Serum SERUM SPECIMEN / Unknown 01/27/2025 8:20 PM EDT 01/31/2025 4:23 AM EDT Comment:S Shelby Blanco MD BODY FLUIDS AND STOOLS ORDERABLE S Final Result Performing Organization Address [facility]/State/ZIP Co de Phone Number [facility] [address] [place] [address]. [address] * Blood culture-Peripheral (Blood) (01/27/2025 8:20 PM EDT) Only the most recent of2 resultswithin the time period is included. Culture Result No Growth After 5 Days [facility] Blood BLOOD SPECIMEN / Unknown 01/27/2025 8:20 PM EDT 01/27/2025 9:57 PM EDT us Pamela JACOME MICROBIOLOGY - GENERAL ORDERAB LES Final Result Performing Organization Address [facility] Co de Phone Number [facility] [address] [facility]. [address] * Blood Culture, Acid Fast (Blood) (01/27/2025 8:20 PM EDT) Culture Result Culture Negative For Mycobacteria At 6 Weeks [facility] Blood SERUM SPECIMEN / Unknown 01/27/2025 8:20 PM EDT 01/27/2025 9:50 PM EDT Comment:S Shelby Blanco MD MICROBIOLOGY - GENERAL ORDERABLE S Final Result Performing Organization Address [facility] de Phone Number [facility] [address] [place] [address]. [address] * Fungus culture, blood (Blood) (01/27/2025 8:20 PM EDT) Culture Result No Fungus Isolated At 4 Weeks [facility] Blood SERUM SPECIMEN / Unknown 01/27/2025 8:20 PM EDT 01/27/2025 9:50 PM EDT Comment:S Shelby Blanco MD MICROBIOLOGY - GENERAL ORDERABLE S Final Result Performing Organization Address [facility] de Phone Number [facility] [address] [place] [address]. [address] * (ABNORMAL) Lipase (01/27/2025 8:20 PM EDT) Lipase 3(L) 4 - 82 U/L 01/27/2025 9:0 3 PM EDT [facility] Plasma 01/27/2025 8:20 PM EDT 01/27/2025 8:34 PM EDT Pamela JACOME LAB BLOOD ORDERABLES Final Res ult [facility] [address] * Hemoglobin A1c (01/27/2025 8:20 PM EDT) Hemoglobin A1C 4.0 4.0 - 5.6 % 01/27/2025 11:49 PM EDT [facility] Comment: Hemoglobin A1c [...] PM EDT 01/27/2025 8:57 PM EDT Narrative [facility] - 01/27/2025 11:49 PM EDT A1C project?->Yes us Pamela JACOME LAB BLOOD ORDERABLES Final Res ult [facility] [address] * Basic metabolic panel (01/27/2025 8:20 PM EDT) Sodium 136 133 - 146 mmol/L 01/27/2025 9:03 PM EDT [facility] Potassium 4.0 3.5 - 5.3 mmol/L 01/27/2025 9:03 PM EDT [facility] Chloride 100 98 - 110 mmol/L 01/27/2025 9:03 PM EDT [facility] CO2 25 21 - 33 mmol/L 01/27/2025 9:03 PM EDT [facility] Anion Gap 11 3 - 16 mmol/L 01/27/2025 9:03 PM EDT [facility] BUN 16 7 - 25 mg/dL 01/27/2025 9:03 PM EDT [facility] Creatinine 1.02 0.60 - 1.30 mg/dL 01/27/2025 9:03 PM EDT [facility] Glucose 93 70 - 100 mg/dL 01/27/2025 9:03 PM EDT [facility] Calcium 9.7 8.6 - 10.3 mg/dL 01/27/2025 9:03 PM EDT [facility] Osmolality, Calculated 283 278 - 305 mOsm/kg 01/27/2025 9:03 PM EDT [facility] EGFR >90 01/27/2025 9:03 PM EDT [facility] Comment: As of 2021, [...] PA LAB BLOOD ORDERABLES Final Res ult [facility] [address], [place] [address] * X-ray Chest PA [...] DIAGNOSTIC IMAGING ORDERAB LES Final Result * HIV-1 RNA, Quantitative, PCR (11/25/2024 8:42 AM EDT) [facility] HIV 1 Copies Not Detected copies/mL 11/26/2024 10:57 AM EDT [facility] Comment:Test methodology for HIV-1 RNA quantification is an FDA-approved nucleic acid amplification assay. The Lower Limit of Quantitation (LLoQ) is 20 copies/mL. The linear range is 20- to 10,000,000 copies/mL. The Limit of Detection (LoD) is 13.2 copies/mL. The reference range is Not Detected. HIV [id number] See Note [id number] /mL 11/26/2024 10:57 AM EDT [facility] Comment:HIV-1 RNA not detect ed. Plasma 11/25/2024 8:42 AM EDT 11/25/2024 10:59 AM EDT Narrative [facility] - 11/26/2024 10:57 AM EDT One time lab order to be collected with next set of standing liver transplant labs. UNOS requirement. Please fax all results to [phone]. Call critical results to [phone]. us Harvey Domínguez III, MD LAB BLOOD ORDERABLE S Final Result Performing Organization Address City/[facility]/ZIP Co de Phone Number [facility] [address] * Hepatitis C Antibody (10/25/2024 10:17 PM EDT) HCV Ab Nonreactive Nonreactive 10/25/2024 11:16 PM EDT [facility] Comment:Health Department no tified in accordance with reportable infectious disease guidelines. Serum 10/25/2024 10:1 7 PM EDT 10/25/2024 10:17 PM EDT Narrative [facility] - 10/25/2024 11:16 PM EDT Antibodies to HCV not detected; does not exclude the possibility of exposure to HCV. us Aysha Gill MD LAB BLOOD ORDERABLES F inal Result Performing Organization Address [facility] Co de Phone Number [facility] [address] * TSH (Thyroid Stimulating Hormone) (10/07/2024 6:37 PM EDT) TSH 0.81 0.45 - 4.12 uIU/mL 10/07/2024 8:17 PM EDT [facility] Serum 10/07/2024 6:37 PM EDT 10/07/2024 6:50 PM EDT us Gerri Peterson MD LAB BLOOD ORDERABLES Final Resu lt Performing Organization Address City/[facility]/ZIP Co de Phone Number [facility] [address] from Last 3 Months or Most Recently Relevant to Health Maintenance Additional Health Concerns Infection Onset Date Last Indicated C. difficile 01/28/2025 01/28/2025 Insurance [facility] [employer] [facility] [employer] TRANSPLANT GLOBAL Member Subscriber Plan / Payer (Ef fective 2024-2025) Name:Julien Anderson Relation to Subscriber:Self Name:Julien Anderson Payer ID:[id number] Group ID:Not on file Type:Transplant Address: [address] [place], [place] [address] Advance Directives For more information, please contact: [phone] * Full Code (Latest Code Status on [...] 9:42 AM 09/09/2024 10:30 PM Care Teams Technology Professional Relationship Specialty Start Date End Date Enedina Mcguire NP [address] [place] [address] PCP - General Internal Medicine 10/05/24 Maureen Pantoja, RN Txp Post Coordinator Transplant Hepatology 10/28/24 Chris Orosco MD [address] [place] [address] [facility] [address] [place] [address] Consulting Physician Transplant Hepatology 02/26/25
--- OUTSIDE RECORDS SUMMARY | 2025-04-03 12:06 | XMS_ITS | Encounter Summary ---
Author Organization [facility] Address [address] [place] [address] Care Team Providers Care Trailer Rental Clerk Name Role Phone Enedina Mcguire NP Primary Care Provider + [phone] Maureen Pantoja RN Unavailable Unavail able Source [...] release of HIV test results or diagnoses. [id number] Health Encounter Details Date Type Department Care Team (Late st Contact Info) Description 02/10/2025 Chart Note [facility] Liver Transplant at [address] [place] [address] Marlene Ro MA 02/10 Labs entered from [facility] Social History Tobacco Use Types Packs/Day Years Used Date Smoking Tobacco: Former Cigarettes Smokeless Tobacco: Current Alcohol Use Standard Drinks/Week Comments Yes 0 (1 standard drink = 0.6 oz pure alcohol) History of alcohol abuse, reports no use in 3 week- typically endorses use as 4 glasses of wine a days [facility] Utilities Answer Date Recorded In the past 12 months has [employer], gas, oil, or water company threatened to [...] were not included. 02/10 Labs entered from [facility] documented in this encounter Plan [...] Phosphatidylethanol (PEth) Positive 288 Whole Blood Result [facility] MD LAB BLOOD ORDERABLES Denisse l Result * BK Virus Quantitative by PCR, Blood (02/10/2025 9:33 AM EDT) [facility] BK Virus Quant PCR PL Negative Plasma Result [facility] MD LAB BLOOD ORDERABLES Denisse l Result * Tacrolimus level (02/10/2025 9:33 AM EDT) [facility] Tacrolimus Lvl 12.5 6 - 15 ng/mL Whole Blood Result [facility] MD LAB BLOOD ORDERABLES Denisse l Result * Cytomegalovirus DNA, Quant, RT PCR (02/10/2025 9:33 AM EDT) [facility] CMV Quant DNA PCR (Plasma) Negative Plasma Result [facility] MD LAB BLOOD ORDERABLES Denisse l Result * (ABNORMAL) Magnesium (02/10/2025 9:33 AM EDT) [facility] Magnesium 1.4(A) 1.6 - 2.4 mg/dL Plasma Narrative Resulting Agency Comment [facility] Result [facility] MD LAB BLOOD ORDERABLES Denisse l Result * (ABNORMAL) Renal Function Panel w/o EGFR (02/10/2025 9:33 AM EDT) [facility] Glucose 101 BUN 15 CO2 26(A) 13 - 22 mmol/L Creatinine 0.90 Potassium 4.1 Sodium 141 Chloride 102 Phosphorus 4.8 2.5 - 4.9 mg/dL Calcium 9.4 EGFR 93 mg/dL Albumin 4.7 3.5 - 5.0 g/dL Blood Narrative Resulting Agency Comment [facility] Result [facility] Provider LAB BLOOD ORDERABLES Denisse l Result * Creatinine, urine, random (02/10/2025 9:33 AM EDT) Creatinine, Urine 62 Urine Narrative Resulting Agency Comment [facility] Result [facility] Provider URINE ORDERABLES Final Re sult * Urinalysis w/Rfl to Microscopic (02/10/2025 9:33 AM EDT) Glucose, UA Negative Negative Ketones, UA Negative Negative Blood, UA Negative Negative Bilirubin, UA Negative Negative Urobilinogen, UA Normal Normal Protein, UA Negative Negative pH, UA 6.0 4.5 - 8.0 Specific [place], UA 1.020 1.005 - 1.030 Clarity, UA Clear Clear Color, UA Yellow Light Yellow, Yellow Urine Narrative Resulting Agency Comment [facility] Result [facility] Provider URINE ORDERABLES Final Re sult * [...] 10^3/mL Blood Narrative Resulting Agency Comment [facility] Result [facility] Provider LAB BLOOD ORDERABLES Denisse l Result * Urine Protein, Tot, Random (w/o Creat) (02/10/2025 9:33 AM EDT) Total Protein, Ur 13.0 Urine Narrative Resulting Agency Comment [facility] Result [facility] Provider URINE ORDERABLES Final Re sult * Hepatic Function Panel (02/10/2025 9:33 AM EDT) Bilirubin, Direct 0.4 Bilirubin, Indirect 0.4 Alkaline Phosphatase 74 ALT 16 AST 25 Total Bilirubin 0.7 Total Protein 6.7 Plasma Narrative Resulting Agency Comment [facility] Result [facility] Provider LAB BLOOD ORDERABLES Denisse l Result documented in this encounter Visit Diagnoses Not on filedocumented in this encounter Additional Health Concerns Infection Onset Date Last Indicated Resolved Time C. difficile 01/28/2025 01/28/2025 Assessment Noted Time PHQ-9 Depression Total Score: 2 12/11/19 25 9:00 AM EDT documented as of this encounter Care Teams Trailer Rental Clerk Relationship Specialty Start Date End Date Enedina Mcguire NP [address] [place] [address] PCP - General Internal Medicine 10/05/24 Maureen Pantoja, RN Txp Post Coordinator Transplant Hepatology 10/28/24 documented as of this encounter
[2025-04-03 12:08] LABS: Microscopic, Urine URINE MICROSCOPIC (MICROSCOPIC)
[2025-04-03 13:03] LABS: Bilirubin,Urine Negative (Negative); Color,Urine YELLOW (Yellow); Glucose,Urine (UA) Negative (Negative); Hematocrit 42.1 % (42.0-52.0); Hemoglobin 14.5 g/dL (14.1-18.0); Immature Granulocytes % 0.7 %; Ketones,Urine Negative (Negative); Leukocyte Esterase,Urine 1+ (Negative); Mean Corpuscular HGB Conc 34.4 g/dL (31.8-35.4); Mean Corpuscular Hemoglobin 33.4 pg (27.0-31.2); Mean Corpuscular Volume 97.0 fl (80-94); Nucleated Red Blood Cells % 0 %; PH,Urine 7.0 (5.0-8.5); Platelet Count 148 K/mm3 (142-424); Protein,Urine Negative (Negative); Red Blood Count 4.34 M/mm3 (4.60-6.20); Red Cell Distribution Width-SD 52.1 fL; Specific Gravity, Urine 1.010 (1.005-1.030); Urobilinogen,Urine 0.2 EU/dl (0.2); White Blood Count 8.1 K/mm3 (4.8-10.8)
[2025-04-03 13:27] LABS: Alanine Aminotransferase 53 U/L (12-78); Albumin Level 5.0 g/dl (3.5-5.0); Alkaline Phosphatase 123 U/L (38-126); Anion Gap 15.5 mEq/L (5-15); Aspartate Amino Transferase 41 U/L (17-59); Bilirubin,Direct 0.2 mg/dl (0.0-0.4); Bilirubin,Indirect 0.7 mg/dL (0.0-0.9); Bilirubin,Total 0.9 mg/dl (0.2-1.3); Bilirubin,Unconjugated 0.7 mg/dL (0.0-1.1); Blood Urea Nitrogen 11 mg/dl (9-20); Calcium 9.3 mg/dl (8.4-10.2); Carbon Dioxide 24 mmol/L (22.0-30.0); Chloride 100 mmol/L (98-107); Creatinine,Serum 1.20 mg/dl (0.66-1.25); Estimated Glomerular Filt Rate 67 ml/min (>60); GFR (African American) 81 ML/MIN (>60); Glucose 122 mg/dl (74-100); Phosphorous 3.3 mg/dl (2.5-4.5); Potassium 3.5 mmoL/L (3.5-5.1); Sodium 136 mmol/L (136-145); Total Protein,Serum 7.1 g/dl (6.3-8.2)
[2025-04-03 13:41] LABS: Magnesium 1.0 mg/dl (1.6-2.3)
[2025-04-03 13:50] LABS: RBC,Urine Occasional #/hpf (0-3)
[2025-04-06 15:11] LABS: Tacrolimus (FK506), Blood 20.8 ng/mL (5.0-20.0)
== END 2025-04-03 23:59 | disposition home or self-care (01) ==
PROVIDERS: PCP Nurse Practitioner Family; Visit Provider Surgery
DX: K74.60 Unspecified cirrhosis of liver (principal); R18.8 Other ascites; Z94.4 Liver transplant status; Z79.60 Long term (current) use of unspecified immunomodulators and immunosuppressants
CPT/HCPCS: 36415; 80069; 80076; 80197; 80321; 81001; 82565; 83735; 84156; 85025; 87081; 87086; 87088; 87186

== ENCOUNTER 2025-04-14 13:03 | Outpatient (CLI) | payer OTHER, SELFPAY ==
[2025-04-14 13:08] LABS: Microscopic, Urine URINE MICROSCOPIC (MICROSCOPIC)
--- OUTSIDE RECORDS SUMMARY | 2025-04-14 13:11 | XMS_ITS | Data Portability ---
Author Organization [facility],, Main Office Address [address] [place] [address] Assessment No assessment recorded. Plan of Treatment [...] Available No t Available BD Regular Bevel [place] 18 gauge x 1 active Not Available [...] Updated DateTime 3 193.04 cm 29.1 kg/m2 952754. 58 g 112 /min 97.7 [degF] 141/84 mm[Hg] [facility] AND [facility], 3 13:14:11 Date Recorded Body height Body mass index (BMI) Body weight Heart rate Body temperature Systolic And Diastolic Provider Name and Address Organization Details Last Updated DateTime 4 193.04 cm 30.4 kg/m2 103716. 09 g 92 /min 97.5 [degF] 176/104 mm[Hg] [facility], 4 14:06:31 Date Recorded Body temperature Provider Name a nd Address Organization Details Last Updated DateTime 12/27/2020 99.5 [degF] Cuca Strickland [facility], 12/27/2020 13:41:33 Date Recorded Body weight Heart rate Body temperature Systolic And Diastolic Provider Name and Address Organization Details Last Updated DateTime 04/03/2022 244584.95 g 93 /min 97.6 [degF] 114/83 mm[Hg] Ashley Wallace [facility], 04/03/2022 14:42:57 Social History None recorded. Functional Status None recorded. Mental Status None recorded. Family History Nothing Reported. Medical History No medical history recorded. Past Encounters Encounter ID Performer Location Encounter Start Date Encounter Closed Date Diagnosis/Indication Diagnosis SNOMED-CT Code Diagnosis ICD10 Code Diagnosis IMO Codes Diagnosis Note [id number] Yung Felipe DO Main Office [address] [place] [address] 12/27/2020 13:24:24 12/27/2020 14:00:19 Evaluation of semen fertility 864562970 N46.9 semen analysis [id number] Yung Felipe DO Main Office [address] [place] [address] 07/04/2021 14:47:56 07/04/2021 16:00:05 Evaluation of semen fertility 677649870 N46.9 semen analysis [id number] Yung Felipe DO Main Office [address] [facility] [place] [address] 05/31/2022 13:04:00 05/31/2022 13:50:01 Evaluation of semen fertility 462064571 N46.9 semen analysis + viability: analysis by Dr. Ruiz [id number] Yung Felipe DO Main Office [address] [facility] [place] [address] 10/22/2023 13:58:48 10/22/2023 14:31:18 Evaluation of semen fertility 610093157 N46.9 semen analysis + viability: analysis by [...] analysis Yung Felipe DO [address], [place], [address], [facility], 08/06/2021 23:24:22 2 text/html InfertilityReported by Patient Not Available Not Available Not Available 3 text/html semen analysis + viability [address], [place], [address], [facility], 05/31/2022 13:57:30 4 text/html semen analysis [address], [place], [address], [facility], 10/22/2023 16:29:00
[2025-04-14 13:32] LABS: Hematocrit 41.9 % (42.0-52.0); Hemoglobin 14.5 g/dL (14.1-18.0); Immature Granulocytes % 0.8 %; Mean Corpuscular HGB Conc 34.6 g/dL (31.8-35.4); Mean Corpuscular Hemoglobin 33.4 pg (27.0-31.2); Mean Corpuscular Volume 96.5 fl (80-94); Nucleated Red Blood Cells % 0 %; Platelet Count 155 K/mm3 (142-424); Red Blood Count 4.34 M/mm3 (4.60-6.20); Red Cell Distribution Width-SD 50.4 fL; White Blood Count 5.3 K/mm3 (4.8-10.8)
[2025-04-14 13:52] LABS: Albumin Level 4.5 g/dl (3.5-5.0); Chloride 101 mmol/L (98-107)
[2025-04-14 13:53] LABS: Potassium 4.0 mmoL/L (3.5-5.1); Sodium 142 mmol/L (136-145)
[2025-04-14 13:55] LABS: Alanine Aminotransferase 40 U/L (12-78); Alkaline Phosphatase 62 U/L (38-126); Anion Gap 19.0 mEq/L (5-15); Aspartate Amino Transferase 50 U/L (17-59); Bilirubin,Direct 0.1 mg/dl (0.0-0.4); Bilirubin,Indirect 0.4 mg/dL (0.0-0.9); Bilirubin,Total 0.5 mg/dl (0.2-1.3); Bilirubin,Unconjugated 0.4 mg/dL (0.0-1.1); Blood Urea Nitrogen 14 mg/dl (9-20); Carbon Dioxide 26 mmol/L (22.0-30.0); Creatinine,Serum 1.80 mg/dl (0.66-1.25); Estimated Glomerular Filt Rate 42 ml/min (>60); GFR (African American) 51 ML/MIN (>60); Total Protein,Serum 6.9 g/dl (6.3-8.2)
[2025-04-14 13:56] LABS: Calcium 10.0 mg/dl (8.4-10.2); Glucose 101 mg/dl (74-100); Magnesium 1.6 mg/dl (1.6-2.3); Phosphorous 4.7 mg/dl (2.5-4.5)
[2025-04-14 14:02] LABS: Bilirubin,Urine Negative (Negative); Color,Urine YELLOW (Yellow); Glucose,Urine (UA) Negative (Negative); Ketones,Urine Negative (Negative); Leukocyte Esterase,Urine Negative (Negative); PH,Urine 6.0 (5.0-8.5); Protein,Urine Negative (Negative); Specific Gravity, Urine 1.020 (1.005-1.030); Urobilinogen,Urine 0.2 EU/dl (0.2)
[2025-04-14 14:27] LABS: Squamous Epithelial Cell,Urine Occasional #/hpf (0-5)
[2025-04-17 22:09] LABS: Tacrolimus (FK506), Blood 16.0 ng/mL (5.0-20.0)
== END 2025-04-14 23:59 | disposition home or self-care (01) ==
LOC: LAB 13:03
PROVIDERS: PCP Nurse Practitioner Family; Visit Provider Surgery
DX: K74.60 Unspecified cirrhosis of liver (principal); R18.8 Other ascites
CPT/HCPCS: 36415; 80069; 80076; 80197; 80321; 81001; 82570; 83735; 84156; 85025; 87086

== ENCOUNTER 2025-04-15 16:14 | Outpatient (CLI) | payer OTHER, SELFPAY ==
--- OUTSIDE RECORDS SUMMARY | 2025-02-17 14:15 | XMS_ITS | Encounter Summary ---
Author Organization [facility] Address [address] [place] [address] Care Team Providers Care Wedding Florist Name Role Phone Enedina Mcguire APRN Primary Care Provider + Reason for Visit * Reason Comments Follow-up Patient following up after liver and kidney transplant. Patient stated he's doing good. Encounter Details Date Type Department Care Team (Late st Contact Info) Description 02/17/2025 3:15 PM EDT Office Visit [facility] INTERNAL MEDICINE [address] [place] [address] Enedina Mcguire APRN [address] [place] [address] Encounter for follow-up (Primary Dx); Kidney transplant recipient; Liver transplant recipient; Vitamin D deficiency; Low testosterone in male; History of systemic steroid therapy Social History Tobacco Use Types Packs/Day Years [...] Recorded In the past 12 months has [employer], gas, oil, or water Company threatened to shut off services in [...] GED or equivalent No 07/09/2024 Preferred Language Italian 07/09/2024 PHQ-2 Answer Date Recorded Patient Health Questionnaire-9 Score 6 01/01/2025 Sex and Gender Information Value Date Recorded Sex Assigned at Male 08/20/2024 8:28 PM EDT Legal Sex Male 7:45 AM EDT Gender Identity Not on file Sexual Orientation Not on file documented as of this encounter Last Filed Vital Signs Vital Sign Reading Time Taken Comments Blood Pressure 124/82 02/17/2025 3:31 PM EDT Pulse 104 02/17/2025 3:31 PM EDT Temperature 36.7 C (98 F) 02/17/2025 3:31 PM EDT Respiratory Rate - - Oxygen Saturation 99% 02/17/2025 3:31 PM EDT Inhaled Oxygen Concentration - - Weight 108 kg (238 lb 6.4 oz) 02/17/2025 3:31 PM EDT Height 193 cm (6' 4 ) 02/17/2025 3:31 PM EDT Body Mass Index 29.02 02/17/2025 3:31 PM EDT documented in this encounter Progress Notes * Enedina Mcguire APRN - 02/17/2025 3:15 PM EDT Images from the original note were not included. Office Note Name: Julien Anderson : 1985 Chief Complaint Follow-up (Patient following up after liver and kidney transplant. Patient stated he's doing good. ) Subjective History of Present Illness: Julien Anderson is a 39 y.o. male who presents today for follow-up after transplant of kidney and liver. Patient continues to follow under [facility]. Letter was sent in October regarding instructions recommendations for this patient. As stated at about 3 months posttransplant patient will be transition to one of our transplant cae engineer group for continuity where they willmanage his liver perspective. liver transplant patient is assigned a posttransplant nurse coordinator Patient did request an updated refill of his once weekly vitamin D supplement Overall patient states he is feeling well. He continues to follow with [facility] about once every 2 months and does have frequent blood work completed Patient states that his liver transplant specialist did provide him clearance to restart on testosterone therapy. Will reach out to [facility] for further confirmation regarding this. Last urine drug screen was completed 12/04/2024 Past Medical History: Diagnosis Date Acute pancreatitis [...] apnea Thoracic disc disorder Past Surgical History: Procedure Laterality Date ABDOMINAL SURGERY CERVICAL FUSION 2000 C3-6 ENDOSCOPY N/A 07/03/2022 Procedure: ESOPHAGOGASTRODUODENOSCOPY; Surgeon: Presley Montes De Oca MD; Location: [facility]; Service: Gastroenterology; Laterality: N/A; ENDOSCOPY N/A 07/29/2022 Procedure: ESOPHAGOGASTRODUODENOSCOPY; Surgeon: Presley Montes De Oca MD; Location: [facility]; Service: Gastroenterology; Laterality: N/A; WITH APC LIVER TRANSPLANTATION 10/2024 NECK SURGERY 11/22/2000 C 4/5 corpectomy c3-6 ant fusion SPINAL FUSION 2000 c3-6 acdf and c4-5 corpectomy; Dr. Gardner, Dr. Mcelroy TRANSPLANTATION RENAL Right 10/2024 Social History Socioeconomic History Marital status: Tobacco [...] Types: Marijuana Sexual activity: Yes Partners: Female Current Outpatient Medications: acetaminophen (TYLENOL) 325 MG tablet, Take 3 tablets by mouth Every 8 (Eight) Hours As Needed., Disp: , Rfl: cyclobenzaprine (FLEXERIL) 5 MG tablet, Take 1 tablet by mouth 3 (Three) Times a Day., Disp: , Rfl: FLUoxetine (PROzac) 20 MG capsule, Take 1 capsule by mouth Daily., Disp: , Rfl: folic acid (FOLVITE) 1 MG tablet, Take 1 tablet by mouth Daily., Disp: , Rfl: gabapentin (NEURONTIN) 300 MG capsule, Take 1 capsule by mouth 3 (Three) Times a Day., Disp: , Rfl: HYDROmorphone (DILAUDID) 2 MG tablet, Take 1 tablet by mouth Every 6 (Six) Hours., Disp: , Rfl: levothyroxine (SYNTHROID, LEVOTHROID) 75 MCG tablet, Take 1 tablet by mouth Daily., Disp: 30 tablet, Rfl: 0 lidocaine (LIDODERM) 5 %, Place 1 patch on the skin as directed by provider Daily., Disp: , Rfl: loratadine (CLARITIN) 10 MG tablet, Take 1 tablet by mouth., Disp: , Rfl: MAGNESIUM CHLORIDE PO, Take by mouth., Disp: , Rfl: methocarbamol (ROBAXIN) 500 MG tablet, Take 1 tablet by mouth 2 (Two) Times a Day., Disp: , Rfl: naltrexone (DEPADE) 50 MG tablet, Take 1 tablet by mouth Daily., Disp: , Rfl: NIFEdipine XL (PROCARDIA XL) 30 MG 24 hr tablet, Take 1 tablet by mouth Daily., Disp: , Rfl: predniSONE (DELTASONE) 5 MG [...] tablet by mouth Daily., Disp: , Rfl: vitamin D (ERGOCALCIFEROL) 1.25 MG (72466 UT) capsule capsule, Take 1 capsule by mouth 1 (One) TimePer Week., Disp: 12 capsule, Rfl: 1 topiramate (TOPAMAX) 25 MG tablet, Take by mouth., Disp: , Rfl: Objective Vital Signs BP 124/82 (BP Location: Left arm, Patient Position: Sitting, Cuff Size: Adult) Pulse 104 Temp 98 ??F (36.7 ??C) Ht 193 cm (76 ) Wt 108 kg (238 lb 6.4 oz) SpO2 99% BMI 29.02 kg/m?? Estimated body mass index is 29.02 kg/m?? as calculated from the following: Height as of this encounter: 193 cm (76 ). Weight as of this encounter: 108 kg (238 lb 6.4 oz). Physical Exam Vitals and nursing note reviewed. Constitutional: Appearance: Normal appearance. HENT: Head: Normocephalic and atraumatic. Eyes: Extraocular Movements: Extraocular movements intact. Pupils: Pupils are equal, round, and reactive to light. Cardiovascular: Rate and Rhythm: Normal rate and regular rhythm. Heart sounds: Normal heart sounds. Pulmonary: Effort: Pulmonary effort is normal. Breath sounds: Normal breath sounds. Abdominal: Comments: Well-healed scar noted on diagram above. Musculoskeletal: General: Normal range of motion. Skin: General: Skin is warm and dry. Neurological: Mental Status: He is alert and oriented to person, place, and time. Psychiatric: Mood and Affect: Mood normal. Behavior: Behavior normal. Assessment and Plan Diagnoses and all orders for this visit: 1. Encounter for follow-up (Primary) 2. Kidney transplant recipient 3. Liver transplant recipient 4. Vitamin D deficiency - vitamin D (ERGOCALCIFEROL) 1.25 MG (23164 UT) capsule capsule; Take 1 capsule by mouth 1 (One) Time Per Week. Dispense: 12 capsule; Refill: 1 5. Low testosterone in male - Testosterone, Free, Total; Future 6. History of systemic steroid therapy Plan Very pleasant follow-up visit completed with patient today Updated refill of vitamin D sent to pharmacy Denied any other particular refills at this time Discussed with patient that I will reach out to his provider at [facility] for further confirmation of clearance of testosterone. Patient is aware of our previous schedule which will include a once monthly phone call for refill and once every 3-month follow-up. He will go ahead and complete the controlled substance agreement form today just in case. Updated testosterone was ordered. Patient will have this completed with his other additional lab work Go to er if any condition worsens or severe. Plan to follow up 3m for chronic care Follow Up Return for 3m chronic care follow up. Enedina Mcguire APRN Part of this note may be an electronic ground wood supervisor/translation of spoken language to printed textusing the [employer]. documented in this encounter Plan of Treatment Upcoming Encounters Date Type Department Care Team (Late st Contact Info) Description 05/18/2025 2:30 PM EST Office Visit [facility] INTERNAL MEDICINE [address] [place] [phone] Enedina Mcguire APRN [address] [place] [phone] 05/21/2025 12:30 PM EST Office Visit [facility] PAIN MANAGEMENT [address] [address] Vazquez Christie PA-C [address] [place] [address] [place], [place] [phone] Scheduled Orders Name Type Priority Associated Diagnoses Orde r Schedule Testosterone, Free, Total Lab Routine Low testosterone in male Expected: 02/22/2025 (Approximate), Expires: 05/20/2026 documented as of this encounter Visit Diagnoses Diagnosis Encounter for follow-up- Primary Kidney transplant recipient Liver transplant recipient Vitamin D deficiency Low testosterone in male History of systemic steroid therapy Personal history of systemic steroid therapy documented in this encounter Additional Health Concerns Assessment Noted Time PHQ-2 Depression Total Score: 1 12/31/19 24 3:25 PM EDT documented as of this encounter Care Teams Wedding Florist Relationship Specialty Start Date End Date Enedina Mcguire APRN [address] [place] [address] PCP - General Nurse Practitioner 10/27/24 documented as of this encounter
--- OUTSIDE RECORDS SUMMARY | 2025-02-19 06:45 | XMS_ITS | Encounter Summary ---
Author Organization [facility] Address [address] [place] [address] Care Team Providers Care Trend Investigator Name Role Phone Enedina Mcguire APRN Primary Care Provider + Reason for Visit * Surgical (Routine) - Closed Specialty Diagnoses / Procedures Referred By Shane t Referred To Contact Pain Medicine Diagnoses Cervical radiculopathy Procedures External Facility Surgical/Procedural Request Tye Song MD [address] [place] [address] Phone: tel: fax: [facility] AT [address] [address] Phone: tel: fax: Referral ID Status Reason Start Date Expiration Date V isits Requested Visits Authorized [id number] Closed Other 01/08/2025 04/09/2026 1 1 Encounter Details Date Type Department Care Team (Late st Contact Info) Description 02/19/2025 7:45 AM EDT Outside Facility Service [facility] PAIN MANAGEMENT [address] [phone] Tey Song MD [address] [place] [address] Social History Tobacco Use Types Packs/Day Years Used Date Smoking Tobacco: Former Cigarettes 4 20 Passive Smoke Exposure: Past Smokeless Tobacco: Current Comments:MARIJUANA USE ABOUT 2X PER WEEK - reports no use 03-25-2025 Alcohol Use Standard Drinks/Week Comments Not Currently 0 (1 standard drink = 0.6 oz pure alcohol) 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 [facility] Utilities Answer Date Recorded In [...] 0 10/02/2022 [facility] Occupational Stress Questionnaire Answer [...] GED or equivalent No 07/09/2024 Preferred Language Pashto 07/09/2024 PHQ-2 Answer Date Recorded Patient Health [...] Description 05/18/2025 2:30 PM EST Office Visit [facility] INTERNAL MEDICINE [address] [place] [address] Enedina Mcguire, INTERIOR DESIGN CONSULTANT [address] [place], [place] [phone] 05/21/2025 12:30 PM EST Office Visit [facility] PAIN [facility] [address] [facility] [address] [place] [address] Vazquez Christie PA-C [address] [facility] [address] [place] [address] documented as of this encounter Visit Diagnoses Not on filedocumented in this encounter Additional Health Concerns Assessment Noted Time PHQ-2 Depression Total Score: 1 12/31/19 24 3:25 PM EDT documented as of this encounter Care Teams Trend Investigator Relationship Specialty Start Date End Date Enedina Mcguire APRN [address] [place] [address] PCP - General Nurse Practitioner 10/27/24 documented as of this encounter
--- OUTSIDE RECORDS SUMMARY | 2025-02-25 09:50 | XMS_ITS | Encounter Summary ---
Author Organization [address] [address] Care Team Providers Care Beach Expert Name Role Phone Enedina Mcguire NP Primary Care Provider + [phone] Maureen Pantoja RN Unavailable Unavail able Source [...] release of HIV test results or diagnoses. [id number] Reason for Referral * Physician/SAWYER (Routine) - Denied Specialty Diagnoses / Procedures Referred By Shane t Referred To Contact Pain Medicine Diagnoses Kidney transplant recipient Neck pain with history of cervical spinal surgery S/P liver transplant ([facility]) [facility] Kidney Transplant at [address] [address] Phone: tel: fax: Referral ID Status Reason Start Date Expiration Date Visits Re quested Visits Authorized [id number] Denied 02/25/2025 08/24/2025 1 0 Scheduling Instructions For appointments, please call [phone]. Reason for Visit * Reason Comments Kidney Transplant Follow-up Encounter Details Date Type Department Care Team ([facility] Contact Info) Description 02/25/2025 10:50 AM EDT Office Visit [facility]ney Transplant at [facility] [address] [facility] [address] [place] [address] Carlton Wright MD [address], [facility] [address] [place] [phone] Kidney transplant recipient (Primary Dx); Neck pain with history of cervical spinal surgery; S/P liver transplant ([facility]) Social History Tobacco Use Types Packs/Day Years Used Date Smoking Tobacco: Former Cigarettes Smokeless Tobacco: Current Tobacco Cessation:Ready to Q uit: Not Asked; Counseling Given: Not Answered Alcohol Use Standard Drinks/Week Comments Yes 0 (1 standard drink = 0.6 oz pure alcohol) History of alcohol abuse, reports no use in 3 week- typically endorses use as 4 glasses of wine a days [facility] Eye[employer] Answer Date Recorded In the past 12 months has th e [employer], [employer], or water [employer] threatened to shut off services in your [...] No 01/28/2025 Housing Stability Vital Sign Answer Obb e [...] Sign Reading Time Taken Comments Blood Pressure 146/97 02/25/2025 11:02 AM EDT Pulse 104 02/25/2025 11:02 AM EDT Temperature - - Respiratory Rate 16 02/25/2025 11:02 AM EDT Oxygen Saturation 100% 02/25/2025 11:02 AM EDT Inhaled Oxygen Concentration 100% 02/25/2025 1 1:02 AM EDT Weight 109.8 kg (242 lb) 02/25/2025 11:02 AM EDT Height 193 cm (6' 4 ) 02/25/2025 11:02 AM EDT Body Mass Index 29.46 02/25/2025 11:02 AM EDT documented in this encounter Progress Notes * Josr Weber RN - 02/25/2025 10:50 AM EDT Medication list reviewed and necessary updates were made. Checked with patient to see if immunosuppression refills were needed. 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 Name: Julien Anderson Date of : 1985 (39 y.o.) Date of Service: 02/25/2025 Subjective History of Present Illness: HPI Date of Transplant: 10/27/2024 Type of Transplant: Donation after Circulatory (Other [...] PHS High Risk Status: Yes Chief Complaint: Chief Complaint Patient presents with Kidney Transplant Follow-up S/p c2 -c6 nerve block Review of Systems Constitutional: Negative for chills and fever. Cardiovascular: Negative for leg swelling. Gastrointestinal: Negative for diarrhea, nausea and vomiting. Genitourinary: Negative for difficulty urinating and dysuria. Neurological: Negative for dizziness, tremors and headaches. All other systems reviewed and [...] at all Food Insecurity: No Food Insecurity (01/28/2025) Hunger Vital Sign Worried About Running Out of Food in the Last Year: Never true Ran Out of Food in the Last Year: Never true Transportation Needs: No Transportation Needs (01/28/2025) PRAPARE - Transportation Lack of Transportation (Medical): No Lack of Transportation (Non-Medical): No Physical Activity: Unknown (07/14/2024) Received from [facility] Exercise Vital Sign Days of Exercise per Week: Patient unable to answer Minutes of Exercise per Session: Not on file Stress: Patient Unable To Answer (07/14/2024) Received from [facility] [place] of Occupational Health - Occupational Stress Questionnaire [...] answer Intimate Partner Violence: Not At Risk (01/28/2025) Humiliation, Afraid, Rape, and Kick questionnaire Fear of Current or Ex-Partner: No Emotionally Abused: No Physically Abused: No Sexually Abused: No Housing Stability: Low Risk (01/28/2025) Housing Stability Vital Sign Unable to Pay for Housing in the Last Year: No Number of Times Moved in the Last Year: 0 Homeless in the Last Year: No Medications: Current Outpatient Medications Medication Sig acetaminophen (TYLENOL) 325 MG tablet Take 3 tablets (975 mg total) by mouth every 8 hours as needed cyclobenzaprine (FLEXERIL) 5 MG tablet Take 1 tablet (5 mg total) by mouth 3 times a day. ergocalciferol (ERGOCALCIFEROL) 1,250 mcg (50,000 unit) capsule Take 1 capsule (50,000 Units total)by mouth once a week. famotidine (PEPCID) 20 MG tablet Take 1 tablet (20 mg total) by mouth 2 times a day. FLUoxetine (PROZAC) 20 MG capsule Take 1 capsule (20 mg total) by mouth daily. gabapentin (NEURONTIN) 300 MG capsule Take 1 capsule (300 mg total) by mouth 3 times a day. Work ondecreasing to one capsule daily. Indications: Neuropathic Pain, alcoholism levothyroxine (SYNTHROID) 75 MCG tablet Take 1 tablet (75 mcg total) by mouth every morning before breakfast. loratadine (CLARITIN) 10 mg tablet Take 1 tablet (10 mg total) by mouth daily as needed for Allergies (itching). methocarbamoL (ROBAXIN) 500 MG tablet Take 2 tablets (1,000 mg total) by mouth 3 times a day. naltrexone (DEPADE) 50 mg tablet Take 1 tablet (50 mg total) by mouth daily. NIFEdipine (PROCARDIA-XL) 30 MG (OSM) 24 hr tablet Take 1 tablet by mouth once daily predniSONE (DELTASONE) 5 MG tablet Take 2 tablets (10 mg total) by mouth daily. tacrolimus (PROGRAF) 1 MG capsule Take 5 capsules (5 mg total) by mouth every morning AND 6 capsules (6 mg total) every evening. Use as directed. Indications: Prevention of Kidney Transplant Rejection, Prevention of Liver Transplant Rejection. testosterone cypionate 200 mg/mL Kit Inject into the muscle. [Paused] mycophenolate (CELLCEPT) 250 mg capsule Take 2 capsules (500 mg total) by mouth 2 times a day. (Patient not taking: Reported on 02/25/2025) No current facility-administered medications for this visit. Allergies: Adhesive and Duloxetine [place]ro/CSA Target: Latest Ref Rng & Units 01/29/2025 01/30/2025 02/03/2025 02/10/2025 02/18/2025 [place]ro/Creatinine Level Tacrolimus by Immunoassay (USE PT. THRESHOLDS) 6 - 15 ng/mL 7.0 12.5 10.7 Creatinine (USE PT. THRESHOLDS) 1.39 1.14 0.90 0.90 1.10 Currently Enrolled Research Studies: Objective Physical Examination: Blood pressure (!) 146/97, pulse 104, resp. rate 16, height 6' 4 (1.93 m), weight (!) 242 lb (109.8 kg), SpO2 100%. Physical Exam Nursing note and vitals reviewed. Constitutional: Oriented to person, place, and time. Apears well-developed and well-nourished. HENT: Mouth/Throat: No oropharyngeal exudate. Eyes: No scleral icterus. Neck: Normal range of motion. Neck supple. No enlarged LN Cardiovascular: Normal rate and regular rhythm. No rub present. Pulmonary/Chest: Effort normal and breath sounds normal. No use of accessory muscles. Abdominal: Soft. Bowel sounds are normal. Incision is healed. Musculoskeletal: Normal range of motion. No edema Neurological: Alert and oriented to person, place, and time. Skin: Skin is warm and dry. Psychiatric: Normal mood and affect. Behavior is normal. Review of Lab Results: Renal: Lab Results Component Value Date NA 140 02/18/2025 K 4.3 02/18/2025 CL 99 02/18/2025 CO2 31 (A) 02/18/2025 ANIONGAP 8 01/30/2025 BUN 24 02/18/2025 CREATININE 1.10 02/18/2025 GLUCOSE 84 02/18/2025 CALCIUM 9.1 02/18/2025 PHOS 4.9 02/18/2025 MG 1.4 (A) 02/18/2025 Hepatic: Lab Results Component Value Date ALKPHOS 85 02/18/2025 AST 24 02/18/2025 ALT 19 02/18/2025 ALBUMIN 4.4 02/18/2025 LABPROT 6.3 09/16/2024 BILIDIRECT 0.0 02/18/2025 BILITOT 0.5 02/18/2025 BILIINDIRECT 0.5 02/18/2025 LIPASE 3 (L) 01/27/2025 Lipids: Lab Results Component Value Date CHOLTOT <25 10/07/2024 TRIG 30 10/07/2024 HDL 4 (L) 10/07/2024 LDL See Note 10/07/2024 CBC: Lab Results Component Value Date WBC 4.9 02/18/2025 RBC 3.98 (A) 02/18/2025 HGB 12.9 (A) 02/18/2025 HCT 37.5 (A) 02/18/2025 MCV 94.2 02/18/2025 MCH 32.4 02/18/2025 MCHC 34.4 02/18/2025 RDW 13.5 02/18/2025 MPV 6.4 (L) 01/30/2025 PLT 115 02/18/2025 Parathyroid: Lab Results Component Value Date PTH 36.0 10/25/2024 GOWD87C 7.1 (L) 10/08/2024 Hemoglobin A1C: Lab Results Component Value Date HGBA1C 4.0 01/27/2025 US Renal Transplant: Results for orders placed [...] Urine: Lab Results Component Value Date LABCREAU 54 02/18/2025 LABPROT 6.3 09/16/2024 PROTEINUR 22.0 02/18/2025 LABURIN no growth 01/06/2025 UTPCR 0.39 11/11/2024 Others: Lab Results Component Value Date IRON 128 10/25/2024 LABIRON SEE COMMENT 10/25/2024 FERRITIN 623.2 (H) 10/25/2024 LDH 102 (L) 10/08/2024 EBVDNAQNT Not Detected 01/27/2025 Assessment & Plan 39 y.o. male with [...] 10/27/24 AlloGraft Function: Cr reviewed. Stable, 1.10 last week. Ureteral stent removed 11/25/24 UA unremarkable 01/05/25 [...] 7 days. CMV ppx: Valcyte 900 mg daily- completed and CMV quant negative x 2 PJP ppx: Bactrim Fungal ppx: Fluconazole - complete Hypertension: Nifedipine xl 30 mg daily Blood pressure on target per home log Volume status: Clinically euvolemic BK Screening: Per protocol (POD# 30, 60, 90, 180, 270, 365) Negative 12/31/24 Hematology: CBC reviewed, counts stable. Mineral Bone Disease: Hypomagnesemia : Mag reviewed, 1.0. On Slow Mag 143 mg BID. Not on PPI. Hyperphosphatemia, phos 5.4. PTH 36 on 10/25/24. Vit D 7.1 on 10/08/24, on ergo 50K weekly Health Maintenance: Follow up with PCP for vaccinations against influenza virus and strep pneumoniae and age appropriate cancer screen. Use of Suncreen -SPF >30, wear long sleeves and hat to limit sun exposure due to increased risk of skin cancer from immunosuppression. Maintain hydration, avoid excessive intake of concentrated sweets, juices, caffeine. Dual barrier contraception for women of childbearing age Patients with recurrent UTI- -limit fluid 2 hours before bedtime -add fiber to morning medication -roge bottle with urination and voiding -limit bladder irritants (caffeine, carbonated drinks, artificial sugars, alcohol) -attempt to use restroom every 2-3 hours;do not hold -increase water intake -move cranberry to morning meds -RX estrace -no soap in perineal area -coconut oil daily after bathing and as needed Plan: Excellent renal allograft function. Completed c.diff treatment last month Would like to referred to pain management clinic at [facility] as per hepatology. Discuss with hepatology to resume MMF 250 mg bid and cut back prednisone 5 mg daily. CARLTON WRIGHT MD documented in this encounter Plan of Treatment Scheduled Referrals Name Type Priority Associated Diagnoses Orde r Schedule Pain Clinic Outpatient Referral Routine Kidney transplant recipient Neck pain with history of cervical spinal surgery S/P liver transplant (CMS-HCC) Ordered: 02/25/2025 documented as of this encounter Visit Diagnoses Diagnosis Kidney transplant recipient- Primary Neck pain with history of cervical spinal surgery S/P liver transplant (CMS-HCC) documented in this encounter Additional Health Concerns Infection Onset Date Last Indicated Resolved Time C. difficile 01/28/2025 01/28/2025 Assessment Noted Time PHQ-9 Depression Total Score: 2 12/11/19 25 9:00 AM EDT documented as of this encounter Care Teams Beach Expert Relationship Specialty Start Date End Date Enedina Mcguire NP [address] [place] [address] PCP - General Internal Medicine 10/05/24 Maureen Pantoja, ЮЛИЯ Txp Post Coordinator Transplant Hepatology 10/28/24 documented as of this encounter
--- OUTSIDE RECORDS SUMMARY | 2025-03-03 12:45 | XMS_ITS | Encounter Summary ---
Author Organization [facility] Address [address] [place] [address] Care Team Providers Care Cane Splicer Name Role Phone Enedina Mcguire APRN Primary Care Provider + Reason for Referral * Surgical (Routine) - Closed Specialty Diagnoses / Procedures Referred By Shane hernadez Referred To Contact Diagnoses Occipital neuralgia of right side Procedures External Facility Surgical/Procedural Request Vazquez Christie PA-C [address] [place] [address] Phone: tel: fax: [facility] 3000 [facility] [address] [place] [address] Phone: tel: fax: Referral ID Status Reason Start Date Expiration Date V isits Requested Visits Authorized [id number] Closed Continuity of Care 03/03/2025 06/02/2026 1 1 Reason for Visit * Reason Comments Follow-up Neck Pain Encounter Details Date Type Department Care Team (Late st Contact Info) Description 03/03/2025 1:45 PM EDT Office Visit [facility] PAIN MANAGEMENT [address] [facility] [address] [place] [address] Vazquez Christie PA-C [address] [place] [address] Occipital neuralgia of right side (Primary Dx); [...] Recorded In the past 12 months has [employer], gas, oil, or water [employer] threatened to shut off services in your [...] GED or equivalent No 07/09/2024 Preferred Language Egyptian 07/09/2024 PHQ-2 Answer Date Recorded Patient Health [...] EDT Referring Physician: Enedina Mcguire APRN [address] [place] [address] Primary Physician: Enedina Mcguire APRN CHIEF COMPLAINT [...] Surgeon: Presley Montes De Oca MD; Location: [facility]; Service: Gastroenterology; Laterality: N/A; ENDOSCOPY N/A 07/29/2022 Procedure: ESOPHAGOGASTRODUODENOSCOPY; Surgeon: Presley Montes De Oca MD; Location: [facility]; Service: Gastroenterology; Laterality: N/A; WITH APC [...] Rfl: 0 vitamin D (ERGOCALCIFEROL) 1.25 MG (87043 UT) capsule capsule, Take 1 capsule by [...] steroid 8. Referrals: None indicated 9. Records: [facility] reviewed; [facility] notes reviewed 10. Lifestyle goals: Follow-up 2 months [facility] Pain Management Vazquez Christie PA-C documented in this encounter Plan of Treatment Upcoming Encounters Date Type Department Care Team (Late st Contact Info) Description 05/18/2025 2:30 PM EST Office Visit [facility] INTERNAL MEDICINE [address] [place] [phone] Enedina Mcguire, SENIOR BI ARCHITECT [address] [place] [address] [phone] 05/21/2025 12:30 PM EST Office Visit [facility] PAIN MANAGEMENT [address] [address] Vazquez Christie PA-C [address] [place] [phone] Scheduled Orders Name Type Priority Associated Diagnoses [...] as of this encounter Care Teams Cane Splicer Relationship Specialty Start Date End Date Enedina Mcguire APRN [address] [place] [address] PCP - General Nurse Practitioner 10/27/24 documented as of this encounter
--- OUTSIDE RECORDS SUMMARY | 2025-03-19 11:30 | XMS_ITS | Encounter Summary ---
Author Organization [facility] Address [address] [place] [address] Care Team Providers Care Violent Crimes Detective Name Role Phone Enedina Mcguire APRN Primary Care Provider + Reason for Visit * Surgical (Routine) - Closed Specialty Diagnoses / Procedures Referred By Shane hernadez Referred To Contact Diagnoses Occipital neuralgia of right side Procedures External Facility Surgical/Procedural Request Vazquez Christie PA-C 1760 [facility] [address] [place] [address] Phone: tel: fax: [facility] AT [address] [place] [address] Phone: tel: fax: Referral ID Status Reason Start Date Expiration Date V isits Requested Visits Authorized [id number] Closed Continuity of Care 03/03/2025 06/02/2026 1 1 Encounter Details Date Type Department Care Team (Late st Contact Info) Description 03/19/2025 11:30 AM EST Outside Facility Service [facility] MEDICAL [facility] PAIN MANAGEMENT [address] [place] [phone] Tye Song MD 1760 [place] [address] Social History Tobacco Use Types Packs/Day Years [...] the past 12 months has th e [employer], gas, oil, or water company threatened to [...] Brief Depression Severity Measure Score 0 10/02/2022 [facility] of Occupat replaced [facility] [...] Description 05/18/2025 2:30 PM EST Office Visit [facility] INTERNAL MEDICINE 3101 [place] [address] Enedina Mcguire, RAMBO 3101 [place], [place] [phone] 05/21/2025 12:30 PM EST Office Visit [facility] PAIN MANAGEMENT 3000 [facility] 330 [place] [address] Vazquez Christie PA-C 1760 [facility] [address] [place] [address] documented as of this encounter Visit Diagnoses Not on filedocumented in this encounter Additional Health Concerns Assessment Noted Time PHQ-2 Depression Total Score: 1 12/31/19 24 3:25 PM EDT documented as of this encounter Care Teams Violent Crimes Detective Relationship Specialty Start Date End Date Enedina Mcguire APRN [address] [place] [phone] PCP - General Nurse Practitioner 10/27/24 documented as of this encounter
--- OUTSIDE RECORDS SUMMARY | 2025-04-15 16:16 | XMS_ITS | Encounter Summary ---
[facility] Address [address] [place] [address] Care Team Providers Care Test Bore Helper Name Role Phone Enedina Mcguire APRN Primary Care Provider + Reason for Visit * Reason Onset Date Comments Med Refill 04/07/2025 Encounter Details Date Type Department Care Team ([facility] st Contact Info) Description 04/07/2025 Refill [facility] INTERNAL MEDICINE [address] [place] [address] Enedina Mcguire APRN [address] [place] [address] Social History Tobacco Use Types [...] Recorded In the past 12 months has [employer], [employer], oil, or water [employer] threatened to shut off services in your [...] 0 10/02/2022 [facility] - Occupational Stress Questionnaire Answer [...] Encounter - Maria Fernanda Evans MA - 04/07/2025 3:19 PM EST Last appointment: 02/17/2025 Next appointment: 05/18/2025 Last Refill: filled by historical provider. documented in this encounter Plan of Treatment Upcoming Encounters Date Type Department Care Team (Late st Contact Info) Description 05/18/2025 2:30 PM EST Office Visit [facility] INTERNAL MEDICINE [address] [place] [address] Enedina Mcguire, GUN STOCK MAKER [address] [place] [address] 05/21/2025 12:30 PM EST Office Visit [facility] PAIN MANAGEMENT [address] [facility] [address] [place] [address] Vazquez Christie PA-C [address] [facility] [address] [place] [address] documented as of this encounter Visit Diagnoses Not on filedocumented in this encounter Additional Health Concerns Assessment Noted Time PHQ-2 Depression Total Score: 1 12/31/19 24 3:25 PM EDT documented as of this encounter Care Teams Test Bore Helper Relationship Specialty Start Date End Date Enedina Mcguire APRN [address] [place] [address] PCP - General Nurse Practitioner 10/27/24 documented as of this encounter
--- OUTSIDE RECORDS SUMMARY | 2025-04-15 16:16 | XMS_ITS | Encounter Summary ---
Author Organization [facility] Address [address] [place] [address] Care Team Providers Care Agricultural Sales Representative Name Role Phone Enedina Mcguire NP Primary Care Provider + [phone] Maureen Pantoja RN Unavailable Unavail able Chris Orosco MD Unavailable [phone] Source Comments This information has been disclosed [...] release of HIV test results or diagnoses. [id number] Encounter Details Date Type Department Care Team (Late st Contact Info) Description 04/15/2025 Chart Note [facility] Liver Transplant at [place] [id number] [address] Marlene Ro MA 04/14 Labs entered from [facility] Social History Tobacco Use Types Packs/Day Years Used Date Smoking Tobacco: Former Cigarettes Smokeless Tobacco: Current Alcohol Use Standard Drinks/Week Comments Yes 0 (1 standard drink = 0.6 oz pure alcohol) History of alcohol abuse, reports no use in 3 week- typically endorses use as 4 glasses of wine a days [facility] Utilities Answer Date Recorded In the past 12 months has [employer], gas, oil, or water company threatened [...] URINE PROTEIN, TOTAL, RANDOM (W/O CREATININE) Routine 04/14/2025 1:05 PM EST HEPATIC FUNCTION PANEL Routine 04/14/2025 1:05 PM EST CREATININE, URINE, RANDOM Routine 04/14/2025 1:05 PM EST URINALYSIS W/RFL TO MICROSCOPIC Routine 04/14/2025 1:05 PM EST CBC AND DIFFERENTIAL Routine 04/14/2025 1:05 PM EST MAGNESIUM Routine 04/14/2025 1:05 PM EST RENAL FUNCTION PANEL W/O EGFR Routine 04/14/2025 1:05 PM EST documented in this encounter Results * Magnesium (04/14/2025 1:05 PM EST) Magnesium 1.6 1.6 - 2.4 mg/dL Plasma Narrative Resulting Agency Comment [facility] Historical Provider LAB BLOOD ORDERABLES Denisse l Result * (ABNORMAL) Renal Function Panel w/o EGFR (04/14/2025 1:05 PM EST) Glucose 101 BUN 14 CO2 26(A) 13 - 22 mmol/L Creatinine 1.80 Potassium 4.0 Sodium 142 Chloride 101 Phosphorus 4.7 2.5 - 4.9 mg/dL Calcium 10.0 EGFR 42 mg/dL Albumin 4.5 3.5 - 5.0 g/dL Blood Narrative Resulting Agency Comment [facility] Historical Provider LAB BLOOD ORDERABLES Denisse l Result * Creatinine, urine, random (04/14/2025 1:05 PM EST) Creatinine, Urine 123 Urine Narrative Resulting Agency Comment [facility] Result [facility] Provider URINE ORDERABLES Final Re sult * Urinalysis w/Rfl to Microscopic (04/14/2025 1:05 PM EST) Glucose, UA Negative Negative Ketones, UA Negative Negative Blood, UA Negative Negative Bilirubin, UA Negative Negative Urobilinogen, UA Normal Normal Protein, UA Negative Negative Nitrite, UA Negative Negative pH, UA 6.0 4.5 - 8.0 Specific [place], UA 1.020 1.005 - 1.030 Clarity, UA Clear Clear Color, UA Yellow Light Yellow, Yellow Urine Narrative Resulting Agency Comment [facility] Result [facility] Provider URINE ORDERABLES Final Re sult * (ABNORMAL) CBC and differential (04/14/2025 1:05 PM EST) Hemoglobin 14.5 13.5 - 17.5 g/dL Hematocrit 41.9 41 - 53 % RDW 14.1 11.5 - 14.5 % Lymphocytes Absolute 1.6 / L Monocytes Absolute 0.5 / L Eosinophils Absolute 0.1 / L Basophils Absolute 0.1 / L Neutrophils Relative 58.2 46 - 78 % Lymphocytes Relative 30.4 18 - 52 % Monocytes Relative 8.4 3 - 10 % Eosinophils Relative 1.3 0 - 6 % Basophils Relative 0.9 0 - 3 % Neutrophils Absolute 3.1 / L MCH 33.4 26.0 - 34.0 pg MCHC 34.6 30 - 37 g/dL MCV 96.5 82.0 - 108.0 fL Platelets 155 K/ L RBC 4.34(A) 4.50 - 5.90 10^6/ L WBC 5.3 10^3/mL Blood Narrative Resulting Agency Comment [facility] Result [facility] Provider LAB BLOOD ORDERABLES Denisse l Result * Urine Protein, Tot, Random (w/o Creat) (04/14/2025 1:05 PM EST) Total Protein, Ur 22.0 Urine Narrative Resulting Agency Comment [facility] Historical Provider URINE ORDERABLES Final Re sult * Hepatic Function Panel (04/14/2025 1:05 PM EST) Bilirubin, Direct 0.1 Bilirubin, Indirect 0.4 Alkaline Phosphatase 62 ALT 40 AST 50 Total Bilirubin 0.5 Total Protein 6.9 Plasma Narrative Resulting Agency Comment [facility] Historical Provider LAB BLOOD ORDERABLES Denisse l [...] Date End Date Enedina Mcguire NP [address] [place] [address] PCP - General Internal Medicine 10/05/24 Maureen Pantoja, ЮЛИЯ Txp Post Coordinator Transplant Hepatology 10/28/24 Chris Orosco MD [address] [place] [address] [place] [address] Consulting Physician Transplant Hepatology 02/26/25 documented as of this encounter
--- OUTSIDE RECORDS SUMMARY | 2025-04-15 16:17 | XMS_ITS | Encounter Summary ---
[facility] Address [address] [place] [address] Care Team Providers Care Autographer Name Role Phone Enedina Mcguire APRN Primary Care Provider + Encounter Details Date Type Department Care Team ([facility] st Contact Info) Description 02/23/2025 Results Follow-Up [facility] INTERNAL MEDICINE [address] [place] [address] Enedina Mcguire APRN [address] [place], [place] [id number] Social History Tobacco Use Types Packs/Day Years [...] Recorded In the past 12 months has [employer], [employer], oil, or water [employer] threatened to shut off services in your [...] Measure Score 0 10/02/2022 [facility] - Occupational [...] [facility] INTERNAL MEDICINE [address] [place] [address] Enedina Mcguire APRN [address] [place] [address] 05/21/2025 12:30 PM EST Office Visit [facility] PAIN MANAGEMENT [address] [facility] [address] [place] [address] Vazquez Christie PA-C [address] [place] [address] [place] [address] documented as of this encounter Visit Diagnoses Not on filedocumented in this encounter Additional Health Concerns Assessment Noted Time PHQ-2 Depression Total Score: 1 12/31/19 24 3:25 PM EDT documented as of this encounter Care Teams Autographer Relationship Specialty Start Date End Date Enedina Mcguire APRN [address] [place] [address] [id number] PCP - General Nurse Practitioner 10/27/24 documented as of this encounter
--- OUTSIDE RECORDS SUMMARY | 2025-04-15 16:17 | XMS_ITS | Encounter Summary ---
Author Organization Healthcare Address [address] [place] [address] Care Team Providers Care K [employer] Professional Name Role Phone Jony Conde MD Primary Care Provider [phone] Lj Tapia TELEPHONE OPERATOR RECEPTIONIST Unavailable [phone] Enedina Mcguire TELEPHONE OPERATOR RECEPTIONIST Primary Care Provider + Nuria Fall MATCH MAKER Unavailable Unavaila ble Encounter Details Date Type Department Care Team (Late st Contact Info) Description 07/04/2022 Orders Only External Location [address] [place] [address] Presley Montes De Oca MD [address] [place] [id number] Social History Tobacco Use Types Packs/Day Years [...] on filedocumented in this encounter Care Teams K [employer] School Professional Relationship Specialty Start Date End Date Jony Conde MD [address] [place] [address] [address] [place], [place] [phone] PCP - General 07/18/22 12/03/22 Enedina Mcguire APRN [address] [place] [address] PCP - General 12/04/22 Lj Tapia APRN [address] [place] [address] [id number] Referring Physician Gastroenterology 07/18/22 Nuria Fall LPN [facility] None TCM Nurse 07/24/24 08/23/24 documented as of this encounter
--- OUTSIDE RECORDS SUMMARY | 2025-04-15 16:17 | XMS_ITS | Encounter Summary ---
Author Organization Healthcare Address [address] [place] [address] Care Team Providers Care Mining Machinery Assembler Name Role Phone Jony Conde MD Primary Care Provider [phone] Lj Tapia BROOM WORKER Unavailable [phone] Enedina Mcguire BROOM WORKER Primary Care Provider + Nuria Fall SAFETY SCIENTIST Unavailable Unavaila ble Encounter Details Date Type Department Care Team (Late st Contact Info) Description 07/04/2022 Orders Only External Location [address] [place] [address] Presley Montes De Oca MD [address] [place] [id number] Social History Tobacco Use Types Packs/Day Years [...] on filedocumented in this encounter Care Teams Mining Machinery Assembler Relationship Specialty Start Date End Date Jony Conde MD [address] [facility] [address] [place] [address] PCP - General 07/18/22 12/03/22 Enedina Mcguire APRN [address] [place] [address] PCP - General 12/04/22 Lj Tapia APRN [address] [place] [address] Referring Physician Gastroenterology 07/18/22 Nuria Fall LPN [facility] None TCM Nurse 07/24/24 08/23/24 documented as of this encounter
--- OUTSIDE RECORDS SUMMARY | 2025-04-15 16:17 | XMS_ITS | Encounter Summary ---
Author Organization [facility] Address [address] [place] [address] Care Team Providers Care Communications Program Manager Name Role Phone Enedina Mcguire NP Primary Care Provider + [phone] Maureen Pantoja RN Unavailable Unavail able Chris Orosco MD Unavailable [phone] Source Comments This information has been disclosed [...] release of HIV test results or diagnoses. [id number] Encounter Details Date Type Department Care Team (Late st Contact Info) Description 04/03/2025 Chart Note [facility] Liver Transplant at [address] [address] Marlene Ro MA 04/03 Labs entered from [facility] Social History Tobacco Use Types Packs/Day Years Used Date Smoking Tobacco: Former Cigarettes Smokeless Tobacco: Current Alcohol Use Standard Drinks/Week Comments Yes 0 (1 standard drink = 0.6 oz pure alcohol) History of alcohol abuse, reports no use in 3 week- typically endorses use as 4 glasses of wine a days [facility] Utilities Answer Date Recorded In the past 12 months has [employer] electric, gas, oil, or water company threatened [...] Progress Notes * Marlene Ro MA - 04/03/2025 3:27 PM EST Images from the original note were not included. 04/03 Labs entered from [facility] documented in this encounter Plan of Treatment Not on file documented as of this encounter Procedures Procedure Name Priority Date/Time Associated Diagnosis Comments PHATIDYLETHANOL (PETH) Routine 12:04 PM EST HEPATIC FUNCTION PANEL Routine 12:04 PM EST TACROLIMUS LEVEL Routine 04/03/2025 12:0 4 PM EST URINALYSIS W/RFL TO MICROSCOPIC Routine 04/03/2025 12:04 PM EST CBC AND DIFFERENTIAL Routine 04/03/2025 12:04 PM EST MAGNESIUM Routine 04/03/2025 12:04 PM EST RENAL FUNCTION PANEL W/O EGFR Routine 04/03/2025 12:04 PM EST documented in this encounter Results * (ABNORMAL) Tacrolimus level (04/03/2025 12:04 PM EST) Tacrolimus Lvl 20.8(A) 6 - 15 ng/mL Whole Blood us Historical Provider LAB BLOOD ORDERABLES Denisse l Result * Phatidylethanol (PEth) (04/03/2025 12:04 PM EST) Phosphatidylethanol (PEth) Positive 496 Whole Blood us Historical Provider LAB BLOOD ORDERABLES Denisse l Result * (ABNORMAL) Magnesium (04/03/2025 12:04 PM EST) [facility] Magnesium 1.0(A) 1.6 - 2.4 mg/dL Plasma Narrative Resulting Agency Comment [facility] Result [facility] LAB BLOOD ORDERABLES Denisse l Result * (ABNORMAL) Renal Function Panel w/o EGFR (04/03/2025 12:04 PM EST) [facility] Glucose 122 BUN 11 CO2 24(A) 13 - 22 mmol/L Creatinine 1.20 Potassium 3.5 Sodium 136 Chloride 100 Phosphorus 3.3 2.5 - 4.9 mg/dL Calcium 9.3 EGFR 67 mg/dL Albumin 5.0 3.5 - 5.0 g/dL Blood Narrative Resulting Agency Comment [facility] Result [facility] LAB BLOOD ORDERABLES Denisse l Result * Urinalysis w/Rfl to Microscopic (04/03/2025 12:04 PM EST) [facility] Glucose, UA Negative Negative Ketones, UA Negative Negative Blood, UA Negative Negative Bilirubin, UA Negative Negative Urobilinogen, UA Normal Normal Protein, UA Negative Negative pH, UA 7.0 4.5 - 8.0 Specific [place], UA 1.010 1.005 - 1.030 Clarity, UA Clear Clear Color, UA Yellow Light Yellow, Yellow Urine Narrative Resulting Agency Comment [facility] Result [facility] Provider URINE ORDERABLES Final Re sult * (ABNORMAL) CBC and differential (04/03/2025 12:04 PM EST) [facility] Hemoglobin 14.5 13.5 - 17.5 g/dL Hematocrit 42.1 41 - 53 % RDW 14.6(A) 11.5 - 14.5 % Lymphocytes Absolute 1.9 / L Monocytes Absolute 0.7 / L Eosinophils Absolute 0.1 / L Basophils Absolute 0.1 / L Neutrophils Relative 66.4 46 - 78 % Lymphocytes Relative 23.2 18 - 52 % Monocytes Relative 8.1 3 - 10 % Eosinophils Relative 1.0 0 - 6 % Basophils Relative 0.6 0 - 3 % Neutrophils Absolute 5.4 / L MCH 33.4 26.0 - 34.0 pg MCHC 34.4 30 - 37 g/dL MCV 97.0 82.0 - 108.0 fL Platelets 148 K/ L RBC 4.34(A) 4.50 - 5.90 10^6/ L WBC 8.1 10^3/mL Blood Narrative Resulting Agency Comment [facility] Provider LAB BLOOD ORDERABLES Denisse l Result * Hepatic Function Panel (04/03/2025 12:04 PM EST) Bilirubin, Direct 0.2 Bilirubin, Indirect 0.7 Alkaline Phosphatase 123 ALT 53 AST 41 Total Bilirubin 0.9 Total Protein 7.1 Plasma Narrative Resulting Agency Comment [facility] Provider LAB BLOOD ORDERABLES Denisse l Result documented in this encounter Visit Diagnoses Not on filedocumented in this encounter Additional Health Concerns Infection Onset Date Last Indicated Resolved Time C. difficile 01/28/2025 01/28/2025 Assessment Noted Time PHQ-9 Depression Total Score: 2 12/11/19 25 9:00 AM EDT documented as of this encounter Care Teams Communications Program Manager Relationship Specialty Start Date End Date Enedina Mcguire NP [address] [place] [address] PCP - General Internal Medicine 10/05/24 Maureen Pantoja, ЮЛИЯ Txp Post Coordinator Transplant Hepatology 10/28/24 Chris Orosco MD [address] [place] [address] [address] [place] [address] Consulting Physician Transplant Hepatology 02/26/25 documented as of this encounter
--- OUTSIDE RECORDS SUMMARY | 2025-04-15 16:17 | XMS_ITS | Encounter Summary ---
Author Organization [facility] Address [address] [place] [address] Care Team Providers Care Nuclear Powerplant Supervisor Name Role Phone Enedina Mcguire NP Primary Care Provider + [phone] Maureen Pantoja RN Unavailable Unavail able Chris Orosco MD Unavailable [phone] Source Comments This information has been disclosed [...] release of HIV test results or diagnoses. [id number] Reason for Visit * Reason Comments Medication Refill Encounter Details Date Type Department Care Team (Late st Contact Info) Description 03/02/2025 Refill [facility] [address] [place] [phone] Feliciano Gomez CNP [address] [place] [address] [id number] Social History Tobacco Use Types Packs/Day Years Used Date Smoking Tobacco: Former Cigarettes Smokeless Tobacco: Current Alcohol Use Standard Drinks/Week Comments Yes 0 (1 standard drink = 0.6 oz pure alcohol) History of alcohol abuse, reports no use in 3 week- typically endorses use as 4 glasses of wine a days [facility] Utilities Answer Date Recorded In the past 12 months has th e [employer], [employer], oil, or water [employer] threatened to shut off services in [...] as of this encounter Care Teams Nuclear Powerplant Supervisor Relationship Specialty Start Date End Date Enedina Mcguire NP [address] [place] [address] PCP - General Internal Medicine 10/05/24 Maureen Pantoja, ЮЛИЯ Txp Post Coordinator Transplant Hepatology 10/28/24 Chris Orosco MD [address] [place] [address] [address] [place] [address] Consulting Physician Transplant Hepatology 02/26/25 documented as of this encounter
--- OUTSIDE RECORDS SUMMARY | 2025-04-15 16:17 | XMS_ITS | Encounter Summary ---
Author Organization [facility] Address [address] [place] [address] Care Team Providers Care Used Car Make Ready Worker Name Role Phone Endeina Mcguire APRN Primary Care Provider + Encounter Details Date Type Department Care Team ([facility] st Contact Info) Description 02/17/2025 Telephone [facility] INTERNAL MEDICINE [address] [place] [address] Enedina Mcguire APRN [address] [place] [address] Social History Tobacco Use Types [...] Recorded In the past 12 months has [employer], oil, or water [employer] threatened to shut off services in [...] Measure Score 0 10/02/2022 [facility] - Occupational Stress Questionnaire Answer [...] Please reach out to Dr. Orosco at [facility] (Phone: tel: ) Patient stated that [...] Description 05/18/2025 2:30 PM EST Office Visit [facility] INTERNAL MEDICINE [address] [place] [phone] Enedina Mcguire APRN [address] [place] [address] 05/21/2025 12:30 PM EST Office Visit [facility] PAIN [facility] [address] [facility] [address] [place] [phone] Vazquez Christie PA-C [address] [place] [address] [address] [place] [address] documented as of this encounter Visit Diagnoses Not on filedocumented in this encounter Additional Health Concerns Assessment Noted Time PHQ-2 Depression Total Score: 1 12/31/19 24 3:25 PM EDT documented as of this encounter Care Teams Used Car Make Ready Worker Relationship Specialty Start Date End Date Enedina Mcguire APRN [address] [place] [address] PCP - General Nurse Practitioner 10/27/24 documented as of this encounter
--- OUTSIDE RECORDS SUMMARY | 2025-04-15 16:17 | XMS_ITS | Encounter Summary ---
Author Organization [facility] Address [address] [place] [address] Care Team Providers Care Chancery Clerk Name Role Phone Enedina Mcguire NP Primary Care Provider + [phone] Maureen Pantoja RN Unavailable Unavail able Chris Orosco MD Unavailable [phone] Source Comments This information has been disclosed [...] release of HIV test results or diagnoses. [id number] Encounter Details Date Type Department Care Team (Late st Contact Info) Description 02/26/2025 Chart Note [facility] Liver Transplant at [place] [address] [address] Marlene Ro MA 02/24 Labs entered from [facility] Social History Tobacco Use Types Packs/Day Years Used Date Smoking Tobacco: Former Cigarettes Smokeless Tobacco: Current Alcohol Use Standard Drinks/Week Comments Yes 0 (1 standard drink = 0.6 oz pure alcohol) History of alcohol abuse, reports no use in 3 week- typically endorses use as 4 glasses of wine a days [facility] Utilities Answer Date Recorded In the past 12 months has [employer], gas, oil, or water company threatened [...] were not included. 02/24 Labs entered from [facility] documented in this encounter Plan [...] 15 ng/mL Whole Blood Result [facility] LAB BLOOD ORDERABLES Denisse l Result * (ABNORMAL) Magnesium (02/24/2025 1:03 PM EDT) [facility] Magnesium 1.2(A) 1.6 - 2.4 mg/dL Plasma Narrative Resulting Agency Comment [facility] Result [facility] LAB BLOOD ORDERABLES Denisse l Result * (ABNORMAL) Renal Function Panel w/o EGFR (02/24/2025 1:03 PM EDT) [facility] Glucose 121 BUN 18 CO2 26(A) 13 - 22 mmol/L Creatinine 1.00 Potassium 4.1 Sodium 140 Chloride 99 Phosphorus 4.6 2.5 - 4.9 mg/dL Calcium 9.4 EGFR 82 mg/dL Albumin 4.7 3.5 - 5.0 g/dL Blood Narrative Resulting Agency Comment [facility] Result [facility] LAB BLOOD ORDERABLES Denisse l Result * Creatinine, urine, random (02/24/2025 1:03 PM EDT) [facility] Creatinine, Urine 96 Urine Narrative Resulting Agency Comment [facility] Result [facility] URINE ORDERABLES Final Re sult * (ABNORMAL) Urinalysis w/Rfl to Microscopic (02/24/2025 1:03 PM EDT) [facility] Glucose, UA Negative Negative Ketones, UA Negative Negative Blood, UA Negative Negative Bilirubin, UA Negative Negative Urobilinogen, UA Normal Normal Protein, UA 1+(A) Negative pH, UA 6.0 4.5 - 8.0 Specific [place], UA 1.020 1.005 - 1.030 Clarity, UA Clear Clear Color, UA Yellow Light Yellow, Yellow Urine Narrative Resulting Agency Comment [facility] Result [facility] URINE ORDERABLES Final Re sult * (ABNORMAL) [...] 7.5 10^3/mL Blood Narrative Resulting Agency Comment [facility] Result [facility] Provider LAB BLOOD ORDERABLES Denisse l Result * Urine Protein, Tot, Random (w/o Creat) (02/24/2025 1:03 PM EDT) Pathologist [facility] Total Protein, Ur 63.0 Urine Narrative Resulting Agency Comment [facility] Result [facility] URINE ORDERABLES Final Re sult * Hepatic Function Panel (02/24/2025 1:03 PM EDT) Bilirubin, Direct 0.5 Bilirubin, Indirect 0.4 Alkaline Phosphatase 184 ALT 52 AST 71 Total Bilirubin 0.9 Total Protein 6.8 Plasma Narrative Resulting Agency Comment [facility] Result [facility] Provider LAB BLOOD ORDERABLES Denisse l Result * Urine culture (02/24/2025 1:03 PM EDT) Urine Culture, Comprehensive no growth URINE SPECIMEN / Unknown Narrative Resulting Agency Comment [facility] us Historical Provider MICROBIOLOGY - GENERAL OR DERABLES Final Result documented in this encounter Visit Diagnoses Not on filedocumented in this encounter Additional Health Concerns Infection Onset Date Last Indicated Resolved Time C. difficile 01/28/2025 01/28/2025 Assessment Noted Time PHQ-9 Depression Total Score: 2 12/11/19 25 9:00 AM EDT documented as of this encounter Care Teams Chancery Clerk Relationship Specialty Start Date End Date Enedina Mcguire NP [address] [place] [address] PCP - General Internal Medicine 10/05/24 Maureen Pantoja, ЮЛИЯ Txp Post Coordinator Transplant Hepatology 10/28/24 Chris Orosco MD [address] [place] [address] [address] [place] [address] Consulting Physician Transplant Hepatology 02/26/25 documented as of this encounter
--- OUTSIDE RECORDS SUMMARY | 2025-04-15 16:17 | XMS_ITS | Encounter Summary ---
Author Organization [facility] Address [address] [place] [address] Care Team Providers Care Remedial Project Manager Name Role Phone Enedina Mcguire NP Primary Care Provider + [phone] Maureen Pantoja RN Unavailable Unavail able Chris Orosco MD Unavailable [phone] Source Comments This information has been disclosed [...] release of HIV test results or diagnoses. [id number] Health Reason for Visit * Reason Comments Results Encounter Details Date Type Department Care Team (Late st Contact Info) Description 04/07/2025 Telephone [facility] Liver Transplant at [address] [address] Maureen Pantoja, ЮЛИЯ Results Social History Tobacco Use Types Packs/Day Years Used Date Smoking Tobacco: Former Cigarettes Smokeless Tobacco: Current Alcohol Use Standard Drinks/Week Comments Yes 0 (1 standard drink = 0.6 oz pure alcohol) History of alcohol abuse, reports no use in 3 week- typically endorses use as 4 glasses of wine a days [facility] Utilities Answer Date Recorded In the past 12 months has [employer], gas, oil, or water company threatened to [...] Progress Notes * Maureen Pantoja RN - 04/13/2025 9:35 AM EST FK 20.8 - labs drawn ~ 12 noon. Message sent to patient educating on trough level and requesting repeat labs this week. Patient continuing to drink heavily. PEth 496 (from 390 on 03/27/25). Message routed to Txp Provider and Txp SW to update. * Maureen Pantoja RN - 04/07/2025 4:54 PM EST Lab results from 04/03/25 reviewed Mag 1.0 - forwarded to Kidney Txp Team, see separate encounter. Cr 1.2; BUN 11. LFTs up. Alk phos 123 (from 74), AST/ALT 41/53 (from ). Patient continuing to drink alcohol. PEth pending. Previous level on 03/27/25 was 390. FK pending. Will follow-up. Current IS: FK 5 mg BID MMF 250 mg BID (restarted at low dose on 02/26/25) Prednisone 5 mg daily documented in this encounter Miscellaneous Notes * Telephone Encounter - Maureen Pantoja RN - 04/14/2025 2:[address] Maza: I agree elevated liver tests could be due to heavy alcohol use post-transplant. Repeat labs in 2 weeks with hopefully true tacrolimus trough. documented in this encounter Plan of Treatment Not on file documented as of this encounter Visit Diagnoses Not on filedocumented in this encounter Additional Health Concerns Infection Onset Date Last Indicated Resolved Time C. difficile 01/28/2025 01/28/2025 Assessment Noted Time PHQ-9 Depression Total Score: 2 12/11/19 25 9:00 AM EDT documented as of this encounter Care Teams Remedial Project Manager Relationship Specialty Start Date End Date Enedina Mcguire NP [address] [place], [place] [id number] PCP - General Internal Medicine 10/05/24 Maureen Pantoja, ЮЛИЯ Txp Post Coordinator Transplant Hepatology 10/28/24 Chris Orosco MD [address] [facility] [address] [place] [address] Consulting Physician Transplant Hepatology 02/26/25 documented as of this encounter
--- OUTSIDE RECORDS SUMMARY | 2025-04-15 16:17 | XMS_ITS | Encounter Summary ---
Author Organization [facility] Address [address] [place] [address] Care Team Providers Care Test Engineering Manager Name Role Phone Enedina Mcguire NP Primary Care Provider + [phone] Alicia Rankin RN Unavailable Unavail able Chris Orosco MD Unavailable [phone] Source Comments This information has been disclosed [...] release of HIV test results or diagnoses. [id number] Health Reason for Visit * Reason Comments Results Medication Dose Change Encounter Details Date Type Department Care Team (Late st Contact Info) Description 02/26/2025 Telephone [facility] Liver Transplant at [address] [address] Alicia Rankin, ЮЛИЯ Results; Medication [...] Recorded In the past 12 months has [employer] electric, gas, oil, or water company threatened [...] as of this encounter Care Teams Test Engineering Manager Relationship Specialty Start Date End Date Enedina Mcguire NP [address] [place] [address] PCP - General Internal Medicine 10/05/24 Alicia Rankin RN Txp Post Coordinator Transplant Hepatology 10/28/24 Chris Orosco MD [address] [place] [address] [address] [place] [address] Consulting Physician Transplant Hepatology 02/26/25 documented as of this encounter
--- OUTSIDE RECORDS SUMMARY | 2025-04-15 16:17 | XMS_ITS | Encounter Summary ---
Author Organization [facility] Address [address] [place] [address] Care Team Providers Care Installer Apprentice Name Role Phone Enedina Mcguire NP Primary Care Provider + [phone] Maureen Pantoja RN Unavailable Unavail able Chris Orosco MD Unavailable [phone] Source Comments This information has been disclosed [...] release of HIV test results or diagnoses. [id number] Encounter Details Date Type Department Care Team (Late st Contact Info) Description 04/06/2025 Telephone [facility] Liver Transplant at [address] [address] Mitzy Gill MA Social History Tobacco Use Types Packs/Day Years Used Date Smoking Tobacco: Former Cigarettes Smokeless Tobacco: Current Alcohol Use Standard Drinks/Week Comments Yes 0 (1 standard drink = 0.6 oz pure alcohol) History of alcohol abuse, reports no use in 3 week- typically endorses use as 4 glasses of wine a days [facility] Utilities Answer Date Recorded In the past 12 months has [employer], gas, oil, or water company threatened [...] Progress Notes * Mitzy Gill MA - 04/06/2025 10:40 AM EST Ashley from [facility] called to report critical lab value for Pt. Urine Culture - Enterococcus Faecium Drawn on 04/03/25 Ashley states this is vancomycin resistant and she will fax results to our office. They will be entered and routed to CC RN upon receipt. documented in this encounter Plan of Treatment Not on file documented as of this encounter Visit Diagnoses Not on filedocumented in this encounter Additional Health Concerns Infection Onset Date Last Indicated Resolved Time C. difficile 01/28/2025 01/28/2025 Assessment Noted Time PHQ-9 Depression Total Score: 2 12/11/19 9:00 AM EDT documented as of this encounter Care Teams Installer Apprentice Relationship Specialty Start Date End Date Enedina Mcguire NP [address] [place] [address] PCP - General Internal Medicine 10/05/24 Maureen Pantoja, RN Txp Post Coordinator Transplant Hepatology 10/28/24 Chris Orosco MD [address] [place] [address] [address] [place] [address] Consulting Physician Transplant Hepatology 02/26/25 documented as of this encounter
--- OUTSIDE RECORDS SUMMARY | 2025-04-15 16:17 | XMS_ITS | Encounter Summary ---
Author Organization [facility] Address [address] [place] [address] Care Team Providers Care Power Lineworker Name Role Phone Enedina Mcguire APRN Primary Care Provider + Reason for Visit * Reason Comments Med Refill Encounter Details Date Type Department Care Team (Late st Contact Info) Description 09/12/2022 Refill [facility] [address] [facility] [address] [place] [address] Lj Tapia APRN [address] [place] [address] Social History Tobacco Use Types Packs/Day Years [...] or training? Not on file Preferred Language Malawian 07/03/2022 Sex and Gender Information Value Date [...] Visit [facility] INTERNAL MEDICINE [address] [place] [phone] Enedina Mcguire APRN [address] [place] [address] 05/21/2025 12:30 PM EST Office Visit [facility] PAIN [facility]NAGEMENT [address] [address] Vazquez Christie PA-C [address] [facility] [address] [place], [place] [id number] documented as of this encounter Visit Diagnoses Not on filedocumented in this encounter Care Teams Power Lineworker Relationship Specialty Start Date End Date Enedina Mcguire APRN [address] [place] [address] PCP - General Nurse Practitioner 10/27/24 documented as of this encounter
--- OUTSIDE RECORDS SUMMARY | 2025-04-15 16:17 | XMS_ITS | Encounter Summary ---
Author Organization [facility] Address [address] [place] [address] Care Team Providers Care Production Zone Leader Name Role Phone Enedina Mcguire NP Primary Care Provider + [phone] Maureen Pantoja RN Unavailable Unavail able Chris Orosco MD Unavailable [phone] Source Comments This information has been disclosed [...] release of HIV test results or diagnoses. [id number] Reason for Visit * Reason Comments Medication Refill Encounter Details Date Type Department Care Team (Late st Contact Info) Description 04/07/2025 Refill [facility] Liver Transplant at [address] [address] Chris Orosco MD [address] [place] [address] Encounter for therapeutic drug monitoring; S/P liver transplant ([facility]); Hypomagnesemia; Kidney [...] 4 glasses of wine a days [facility] Utilities Answer Date Recorded In the past 12 months has th e [employer], oil, or water company threatened to shut [...] documented as of this encounter Care Teams Production Zone Leader Relationship Specialty Start Date End Date Enedina Mcguire NP [address] [place] [address] PCP - General Internal Medicine 10/05/24 Maureen Pantoja, RN Txp Post Coordinator Transplant Hepatology 10/28/24 Chris Orosco MD [address] [place] [address] [address] [place] [address] Consulting Physician Transplant Hepatology 02/26/25 documented as of this encounter
--- OUTSIDE RECORDS SUMMARY | 2025-04-15 16:17 | XMS_ITS | Encounter Summary ---
[facility] Address [address] [place] [address] Care Team Providers Care Historical Manuscripts Curator Name Role Phone Enedina Mcguire APRN Primary Care Provider + Encounter Details Date Type Department Care Team ([facility] st Contact Info) Description 10/07/2024 Results Follow-Up [facility] INTERNAL MEDICINE [address] [place] [address] Enedina Mcguire APRN [address] [place], [place] [id number] Social History Tobacco Use Types Packs/Day Years Used Date Smoking Tobacco: Former Cigarettes 4 20 Passive Smoke Exposure: Past Smokeless Tobacco: Current Comments:MARIJUANA USE ABOUT 2X PER WEEK - reports no use 08-05-2024 Alcohol Use Standard Drinks/Week Comments Not Currently 0 (1 standard drink = 0.6 oz pure alcohol) 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 [facility] Utilities Answer Date Recorded In the past 12 months has [employer], [employer], oil, or water [employer] threatened to shut off services in your [...] Brief Depression Severity Measure Score 0 10/02/2022 [facility] of Occupat ional Health - [...] [facility] INTERNAL MEDICINE [address] [place] [address] Enedina Mcguire APRN [address] [place] [address] 05/21/2025 12:30 PM EST Office Visit [facility] PAIN MANAGEMENT [address] [facility] [address] [place] [address] Vazquez Christie PA-C [address] [place] [address] [place] [address] documented as of this encounter Visit Diagnoses Not on filedocumented in this encounter Additional Health Concerns Assessment Noted Time PHQ-2 Depression Total Score: 1 12/31/19 24 3:25 PM EDT documented as of this encounter Care Teams Historical Manuscripts Curator Relationship Specialty Start Date End Date Enedina Mcguire APRN [address] [place] [id number] PCP - General Nurse Practitioner 10/27/24 documented as of this encounter
--- OUTSIDE RECORDS SUMMARY | 2025-04-15 16:17 | XMS_ITS | Encounter Summary ---
Author Organization Healthcare Address [address] [place] [address] Care Team Providers Care Filter Operator Name Role Phone Jony Conde MD Primary Care Provider [phone] Lj Tapia CVIR TECH Unavailable [phone] Enedina Mcguire APRN Primary Care Provider + Nuria Fall CHIEF PASSENGER SHIP STEWARD/STEWARDESS Unavailable Unavaila ble Encounter Details Date Type Department Care Team (Late st Contact Info) Description 07/02/2022 Orders Only External Location [address] [place] [address] Provider, External Social History Tobacco Use Types [...] on filedocumented in this encounter Care Teams Filter Operator Relationship Specialty Start Date End Date Jony Conde MD 9 [facility] [address] [place], [place] [id number] PCP - General 07/18/22 12/03/22 Enedina Mcguire APRN [address] [place] [address] PCP - General 12/04/22 Lj Tapia APRN [address] [place] [address] Referring Physician Gastroenterology 07/18/22 Nuria Fall LPN [facility] None TCM Nurse 07/24/24 08/23/24 documented as of this encounter
--- OUTSIDE RECORDS SUMMARY | 2025-04-15 16:17 | XMS_ITS | Encounter Summary ---
[facility] [address] [place] [address] Care Team Providers Care Zigzag Topstitcher Name Role Phone Enedina Mcguire APRN Primary Care Provider + Encounter Details Date Type Department Care Team (Late st Contact Info) Description 02/19/2025 Documentation [facility] PAIN MANAGEMENT [address] [address] Tye Song MD [address] [place] [id number] Social History Tobacco Use Types Packs/Day Years Used Date Smoking Tobacco: Former Cigarettes 4 20 Passive Smoke Exposure: Past Smokeless Tobacco: Current Comments:MARIJUANA USE ABOUT 2X PER WEEK - reports no use 08-05-2024 Alcohol Use Standard Drinks/Week Comments Not Currently 0 (1 standard drink = 0.6 oz pure alcohol) 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 [facility] Utilities Answer Date Recorded In the past 12 months has [employer], [employer], oil, or water [employer] threatened to shut off services in your [...] 0 10/02/2022 [facility] - [facility] Stress Questionnaire Answer [...] GED or equivalent No 07/09/2024 Preferred Language North Korean 07/09/2024 PHQ-2 Answer Date Recorded Patient Health Questionnaire-9 Score 6 01/01/2025 Sex and Gender Information Value Date Recorded Sex Assigned at Male 08/20/2024 8:28 PM EDT Legal Sex Male 7:45 AM EDT Gender Identity Not on file Sexual Orientation Not on file documented as of this encounter Progress Notes * Tye Song MD - 02/19/2025 9:31 AM EDT [facility] [address] [place] [address] DATE OF SERVICE: 02/19/2025 PROCEDURE: Fluoroscopically-guided bilateral [...] schedule #2 medial branch block ADDITIONAL NOTES: [facility] Pain Management Tye Song MD Codes: [id number] documented in this encounter Plan of Treatment Upcoming Encounters Date Type Department Care Team (Late st Contact Info) Description 05/18/2025 2:30 PM EST Office Visit [facility] INTERNAL MEDICINE [address] [place] [address] Enedina Mcguire, RAMBO [address] [place] [address] 05/21/2025 12:30 PM EST Office Visit [facility] PAIN MANAGEMENT [address] [address] Vazquez Christie PA-C [address] [facility] [address] [place] [address] documented as of this encounter Visit Diagnoses Not on filedocumented in this encounter Additional Health Concerns Assessment Noted Time PHQ-2 Depression Total Score: 1 12/31/19 24 3:25 PM EDT documented as of this encounter Care Teams Zigzag Topstitcher Relationship Specialty Start Date End Date Enedina Mcguire APRN [address] [place] [address] PCP - General Nurse Practitioner 10/27/24 documented as of this encounter
--- OUTSIDE RECORDS SUMMARY | 2025-04-15 16:17 | XMS_ITS | Encounter Summary ---
Author Organization [facility] Address [address] [place] [address] Care Team Providers Care Water Treatment Plant Mechanic Name Role Phone Enedina Mcguire NP Primary Care Provider + [phone] Maureen Pantoja RN Unavailable Unavail able Chris Orosco MD Unavailable [phone] Source Comments This information has been disclosed [...] release of HIV test results or diagnoses. [id number] Reason for Visit * Reason Comments Medication Refill Encounter Details Date Type Department Care Team (Late st Contact Info) Description 02/25/2025 Refill [facility] Liver Transplant at [address] [address] Lydia Sanchez MD [address] [place] [address] Liver[place] [address] Encounter for therapeutic drug monitoring; S/P liver transplant ([facility]); Hypomagnesemia; Kidney transplant recipient; Hypertension, unspecified type; [...] as 4 glasses of wine a days [facility] Utilities Answer Date Recorded In the past 12 months has th e [employer], [employer], oil, or water company threatened to shut [...] of this encounter Care Teams Water Treatment Plant Mechanic Relationship Specialty Start Date End Date Enedina Mcguire NP [address] [place] [address] PCP - General Internal Medicine 10/05/24 Maureen Pantoja, RN Txp Post Coordinator Transplant Hepatology 10/28/24 Chris Orosco MD [address] [place] [address] [address] [place] [address] Consulting Physician Transplant Hepatology 02/26/25 documented as of this encounter
--- OUTSIDE RECORDS SUMMARY | 2025-04-15 16:17 | XMS_ITS | Encounter Summary ---
Author Organization [facility] Address [address] [place] [address] Care Team Providers Care Spectroscopist Name Role Phone Enedina Mcguire APRN Primary [...] Recorded In the past 12 months has [employer], gas, oil, or water [employer] threatened to shut off services in your [...] Brief Depression Severity Measure Score 0 10/02/2022 [facility] of Occupat ional Health - Occupational Stress [...] Visit [facility] INTERNAL MEDICINE [address] [place] [address] Enedina Mcguire APRN [address] [place] [phone] 05/21/2025 12:30 PM EST Office Visit [facility] PAIN MANAGEMENT 3000 [facility] [address] [place] [address] Vazquez Christie PA-C [address] [place] [address] [address] [place] [address] documented as of this encounter Visit Diagnoses Not on filedocumented in this encounter Additional Health Concerns Assessment Noted Time PHQ-2 Depression Total Score: 1 12/31/19 24 3:25 PM EDT documented as of this encounter Care Teams Spectroscopist Relationship Specialty Start Date End Date Enedina Mcguire APRN [address] [place] [id number] PCP - General Nurse Practitioner 10/27/24 documented as of this encounter
--- OUTSIDE RECORDS SUMMARY | 2025-04-15 16:17 | XMS_ITS | Encounter Summary ---
Author Organization [facility] Address [address] [place] [address] Care Team Providers Care Range Master Name Role Phone Enedina Mcguire NP Primary Care Provider + [phone] Maureen Pantoja RN Unavailable Unavail able Chris Orosco MD Unavailable [phone] Source Comments This information has been disclosed [...] release of HIV test results or diagnoses. [id number] Health Reason for Visit * Reason Comments Results Encounter Details Date Type Department Care Team (Late st Contact Info) Description 04/03/2025 Telephone [facility] Liver Transplant at [address] [address] Maureen Pantoja, ЮЛИЯ Results Social History Tobacco Use Types Packs/Day Years Used Date Smoking Tobacco: Former Cigarettes Smokeless Tobacco: Current Alcohol Use Standard Drinks/Week Comments Yes 0 (1 standard drink = 0.6 oz pure alcohol) History of alcohol abuse, reports no use in 3 week- typically endorses use as 4 glasses of wine a days [facility] Utilities Answer Date Recorded In the past 12 months has [employer], gas, oil, or water company threatened to [...] Progress Notes * Maureen Pantoja RN - 04/07/2025 4:19 PM EST PEth 390 * Maureen Pantoja RN - 04/03/2025 3:30 PM EST Received FK level from 03/27/25. FK 18.2 - HOWEVER, tacrolimus dose was decreased on 03/30/25, therefore this level does not accurately represent current dose. Patient repeated labs today. FK pending. Will follow-up on most recent level once resulted. documented in this encounter Plan of Treatment Not on file documented as of this encounter Visit Diagnoses Not on filedocumented in this encounter Additional Health Concerns Infection Onset Date Last Indicated Resolved Time C. difficile 01/28/2025 01/28/2025 Assessment Noted Time PHQ-9 Depression Total Score: 2 12/11/19 9:00 AM EDT documented as of this encounter Care Teams Range Master Relationship Specialty Start Date End Date Enedina Mcguire NP [address] [place] [address] PCP - General Internal Medicine 10/05/24 Maureen Pantoja, ЮЛИЯ Txp Post Coordinator Transplant Hepatology 10/28/24 Chris Orosco MD [address] [place] [address] [address] [place] [address] Consulting Physician Transplant Hepatology 02/26/25 documented as of this encounter
--- OUTSIDE RECORDS SUMMARY | 2025-04-15 16:17 | XMS_ITS | Encounter Summary ---
[facility] Address [address] [place] [address] Care Team Providers Care Vegetable Farm Worker Name Role Phone Enedina Mcguire APRN Primary Care Provider + Reason for Visit * Reason Onset Date Comments Results 02/20/2025 Encounter Details Date Type Department Care Team ([facility] st Contact Info) Description 02/20/2025 Telephone [facility] INTERNAL MEDICINE [address] [place] [address] Enedina Mcguire APRN [address] [place] [address] Results Social History Tobacco Use [...] Recorded In the past 12 months has [employer], [employer], oil, or water [employer] threatened to shut off services in [...] Severity Measure Score 0 10/02/2022 [facility] - Occupational Stress Questionnaire [...] - 02/20/2025 2:42 PM EDT Pt sent [employer] message as well, message sent to Enedina on results * Telephone Encounter - Liliana Glez RegSched Rep - 02/20/2025 1:34 PM EDT Caller: Julien Anderson Relationship: Self Best call back number: [phone] What test was performed: TESTOSTERONE TEST When [...] [facility] INTERNAL MEDICINE [address] [place] [address] Enedina Mcguire, APPRENTICE ARCHITECT [address] [place] [address] 05/21/2025 12:30 PM EST Office Visit [facility] PAIN MANAGEMENT 3000 [facility] [address] [place] [address] Vazquez Christie PA-C 1760 [facility] [address] [place] [address] documented as of this encounter Visit Diagnoses Not on filedocumented in this encounter Additional Health Concerns Assessment Noted Time PHQ-2 Depression Total Score: 1 12/31/19 24 3:25 PM EDT documented as of this encounter Care Teams Vegetable Farm Worker Relationship Specialty Start Date End Date Enedina Mcguire APRN [address] [place] [address] PCP - General Nurse Practitioner 10/27/24 documented as of this encounter
--- OUTSIDE RECORDS SUMMARY | 2025-04-15 16:17 | XMS_ITS | Encounter Summary ---
Author Organization [facility] Address [address] [place] [address] Care Team Providers Care Naval Architect Name Role Phone Enedina Mcguire NP Primary Care Provider + [phone] Maureen Pantoja RN Unavailable Unavail able Chris Orosco MD Unavailable [phone] Source Comments This information has been disclosed [...] release of HIV test results or diagnoses. [id number] Health Reason for Visit * Reason Comments Results Medication Dose Change Encounter Details Date Type Department Care Team (Late st Contact Info) Description 03/24/2025 Telephone [facility] Liver Transplant at [address] [address] Maureen Pantoja, ЮЛИЯ Results; Medication Dose Change Social History Tobacco Use Types Packs/Day Years Used Date Smoking Tobacco: Former Cigarettes Smokeless Tobacco: Current Alcohol Use Standard Drinks/Week Comments Yes 0 (1 standard drink = 0.6 oz pure alcohol) History of alcohol abuse, reports no use in 3 week- typically endorses use as 4 glasses of wine a days [facility] Utilities Answer Date Recorded In the past 12 months has [employer], gas, oil, or water company threatened [...] for therapeutic drug monitoring S/P liver transplant ([facility]) Hypomagnesemia Disorders of magnesium metabolism Kidney transplant recipient Hypertension, unspecified type Gastroesophageal reflux disease, unspecified whether esophagitis present documented in this encounter Additional Health Concerns Infection Onset Date Last Indicated Resolved Time C. difficile 01/28/2025 01/28/2025 Assessment Noted Time PHQ-9 Depression Total Score: 2 12/11/19 25 9:00 AM EDT documented as of this encounter Care Teams Naval Architect Relationship Specialty Start Date End Date Enedina Mcguire NP [address] [place] [address] PCP - General Internal Medicine 10/05/24 Maureen Pantoja, ЮЛИЯ Txp Post Coordinator Transplant Hepatology 10/28/24 [place] [address] [place] [address] [address] [place] [address] Consulting Physician Transplant Hepatology 02/26/25 documented as of this encounter
--- OUTSIDE RECORDS SUMMARY | 2025-04-15 16:17 | XMS_ITS | Encounter Summary ---
[facility] Address [address] [place] [address] Care Team Providers Care Retail Mortgage Banker Name Role Phone Enedina Mcguire APRN Primary Care Provider + Encounter Details Date Type Department Care Team (Late st Contact Info) Description 02/20/2025 Telephone [facility] PAIN MANAGEMENT [address] [address] Georgina Rainey MA Social History Tobacco Use Types Packs/Day Years Used Date Smoking Tobacco: Former Cigarettes 4 20 Passive Smoke Exposure: Past Smokeless Tobacco: Current Comments:MARIJUANA USE ABOUT 2X PER WEEK - reports no use 08-05-2024 Alcohol Use Standard Drinks/Week Comments Not Currently 0 (1 standard drink = 0.6 oz pure alcohol) 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 [facility] [place] [facility] Utilities Answer Date Recorded In the past 12 months has [employer], [employer], oil, or water [employer] threatened to shut off services in your [...] Brief Depression Severity Measure Score 0 10/02/[address] [facility] - Occupational Stress Questionnaire Answer Date [...] 2:30 PM EST Office Visit [facility] INTERNAL MEDICINE [address] [place] [address] Enedina Mcguire APRN [address] [place] [address] 05/21/2025 12:30 PM EST Office Visit [facility] PAIN MANAGEMENT [address] [address] Vazquez Christie PA-C 1760 [facility] [address] [place] [address] documented as of this encounter Visit Diagnoses Not on filedocumented in this encounter Additional Health Concerns Assessment Noted Time PHQ-2 Depression Total Score: 1 12/31/19 24 3:25 PM EDT documented as of this encounter Care Teams Retail Mortgage Banker Relationship Specialty Start Date End Date Enedina Mcguire APRN [address] [place] [address] PCP - General Nurse Practitioner 10/27/24 documented as of this encounter
--- OUTSIDE RECORDS SUMMARY | 2025-04-15 16:17 | XMS_ITS | Encounter Summary ---
Author Organization [facility] Address [address] [place] [address] Care Team Providers Care Hand Brush Filler Name Role Phone Enedina Mcguire NP Primary Care Provider + [phone] Alicia Rankin RN Unavailable Unavail able Chris Orosco MD Unavailable [phone] Source Comments This information has been disclosed [...] release of HIV test results or diagnoses. [id number] Health Reason for Visit * Reason Comments ask pt how much Mg he is taking / day returning pt's phone call follow up on plan plan of care for patient follow up on plan of care per dr. chandler Encounter Details Date Type Department Care Team (Late st Contact Info) Description 04/03/2025 Telephone [facility] Liver Transplant at [address] [place] [address] Mitzy Gill MA ask pt how much Mg he is taking / day; returning pt's phone call; follow up on plan; plan of care for patient; follow up on plan of care per dr. chandler Social History Tobacco Use Types Packs/Day Years Used Date Smoking Tobacco: Former Cigarettes Smokeless Tobacco: Current Alcohol Use Standard Drinks/Week Comments Yes 0 (1 standard drink = 0.6 oz pure alcohol) History of alcohol abuse, reports no use in 3 week- typically endorses use as 4 glasses of wine a days [facility] Utilities Answer Date Recorded In the past 12 months has th e [employer], gas, oil, or water company threatened to [...] Notes * Marlene Ro MA - 04/03/2025 3:00 PM EST Incoming call from patient requesting to speak to Vivi Puckett RN again or for a message to be relayed. Patient states although he would refuse a ER visit, he is willing to get a transfusion at [facility]. I coordinated with CC RN Alicia via Teams who advised this message be sent to Katherine and that his magnesium is being managed by kidney transplant so further review is up to their discretion. I verbalized this to patient. Patient aware of message being sent. * Alicia Rankin RN - 04/03/2025 2:52 PM ESTAddended by: ALICIA RANKIN on: 04/03/2025 02:52 PM Modules accepted: Orders * Vivi Puckett RN - 04/03/2025 2:40 PM EST This RN called pt to confirm how much mg he is taking per day. Per dr. Chandler he should be taking: slow Mag 2 tabs TID Per med list, pt is not on slow mg. Per pt some days he is taking 2 tabs BID and some days he is taking 2 tabs TID. Per pt, he will be consistent with taking his slow mag TID and verbally volunteered to this RN that he knows his Mg+ islow and he does not want to be told to go to the ER. Per pt, he purchases the slow-mag OTC. Addedum: This RN called pt back d/t received above call from pt at 1500, This RN notified pt that she would notified Dr. Chandler regarding above. This RN stressed to pt to take his medications and set an alarm to remind him to take the afternoon dose. This RN also suggestedfor pt to keep extra doses in his car. Pt verbalized understanding. Addedum 1657: This RN called dr. Chandler to confirm he is ok w. The above plan of care to have pt take his Mg+ per order, TID, and have pt recheck his Mg+ next week or if he wanted to have pt get a mag infusion since pt voluntarily suggested this? This RN asked for dr Chandler to message this RN back. Addedum at 1720: Plan of care per Dr. Chandler: 1: pt can go to the ER 2: pt needs to take his Rx as ordered: mag 2 tabs TID This RN will call and notified pt of above plan of care. Pt did not answer, this RN notified pt of plan of care via VM. This RN notified pt of symptoms of low Mg and how it is critical to go to the ER to get his mag replaced now per dr. Chandler. This RN reminded him he had a liver and kidney transplant and it is critical to get the mag+ replaced and not wait, notified of symptoms related to low Mg.Pt encouraged to go to the ER tonight on VM. This RN notified pt's liver and kidney coordinators of above. * Mitzy Gill MA - 04/03/2025 1:40 PM EST Steffen from [facility] called to report critical lab value for Pt. Mg - 1.0 Drawn on 04/03/25 Results will be faxed to our office [...] as of this encounter Care Teams Hand Brush Filler Relationship Specialty Start Date End Date Enedina Mcguire NP [address] [place] [address] PCP - General Internal Medicine 10/05/24 Alicia Rankin, ЮЛИЯ Txp Post Coordinator Transplant Hepatology 10/28/24 Chris Orosco MD [address] [place] [address] [address] [place] [address] Consulting Physician Transplant Hepatology 02/26/25 documented as of this encounter
--- OUTSIDE RECORDS SUMMARY | 2025-04-15 16:17 | XMS_ITS | Encounter Summary ---
Author Organization Healthcare Address [address] [place] [address] Care Team Providers Care Server Name Role Phone Jony Conde MD Primary Care Provider [phone] Lj Tapia SKILLED LABOR Unavailable [phone] Enedina Mcguire SKILLED LABOR Primary Care Provider + Nuria Fall DITCH RIDER Unavailable Unavaila ble Encounter Details Date Type Department Care Team (Late st Contact Info) Description 07/03/2022 Orders Only External Location [address] [place] [address] Presley Montes De Oca MD [address] [place] [id number] Social History Tobacco Use Types Packs/Day Years [...] on filedocumented in this encounter Care Teams Server Relationship Specialty Start Date End Date Jony Conde MD [address] [place] [address] [address] [place] [address] PCP - General 07/18/22 12/03/22 Enedina Mcguire APRN [address] [place] [address] PCP - General 12/04/22 Lj Tapia APRN [facility] [place], [place] [id number] Referring Physician Gastroenterology 07/18/22 Nuria Fall LPN [facility] None TCM Nurse 07/24/24 08/23/24 documented as of this encounter
--- OUTSIDE RECORDS SUMMARY | 2025-04-15 16:17 | XMS_ITS | Encounter Summary ---
Author Organization [facility] Address [address] [place] [address] Care Team Providers Care Upholsterer Apprentice Name Role Phone Enedina Mcguire NP Primary Care Provider + [phone] Maureen Pantoja RN Unavailable Unavail able Chris Orosco MD Unavailable [phone] Source Comments This information has been disclosed [...] release of HIV test results or diagnoses. [id number] Encounter Details Date Type Department Care Team (Late st Contact Info) Description 03/20/2025 Chart Note [facility] Liver Transplant at [address] [address] Marlene Ro MA 03/20 Labs entered from [facility] Social History Tobacco Use Types Packs/Day Years Used Date Smoking Tobacco: Former Cigarettes Smokeless Tobacco: Current Alcohol Use Standard Drinks/Week Comments Yes 0 (1 standard drink = 0.6 oz pure alcohol) History of alcohol abuse, reports no use in 3 week- typically endorses use as 4 glasses of wine a days [facility] Utilities Answer Date Recorded In the past 12 months has [employer], gas, oil, or water company threatened [...] 11:09 AM EST 03/20 Labs entered from [facility] documented in this encounter Plan [...] 6 - 15 ng/mL Whole Blood Result [facility] Provider LAB BLOOD ORDERABLES Denisse l Result * Phatidylethanol (PEth) (03/20/2025 7:15 AM EST) Phosphatidylethanol (PEth) Positive 409 Whole Blood Result [facility] Provider LAB BLOOD ORDERABLES Denisse l Result * BK Virus Quantitative by PCR, Blood (03/20/2025 7:15 AM EST) BK Virus Quant PCR PL negative Plasma Result [facility] LAB BLOOD ORDERABLES Denisse l Result * Urine culture (03/20/2025 7:15 AM EST) Urine Culture, Comprehensive no growth after 48 hours URINE SPECIMEN / Unknown Result [facility] Provider MICROBIOLOGY - GENERAL OR DERABLES Final Result * Creatinine, urine, random (03/20/2025 7:15 AM EST) Creatinine, Urine 111 Urine Result [facility] Provider URINE ORDERABLES Final Re sult * Urine Protein, Tot, Random (w/o Creat) (03/20/2025 7:15 AM EST) Total Protein, Ur 19.0 Urine Result [facility] [employer] [facility] Provider URINE ORDERABLES Final Re sult * (ABNORMAL) Magnesium (03/20/2025 7:15 AM EST) Magnesium 1.2(A) 1.6 - 2.4 mg/dL Plasma Narrative Resulting Agency Comment [facility] Provider LAB BLOOD ORDERABLES Denisse l Result * (ABNORMAL) Urinalysis w/Rfl to Microscopic (03/20/2025 7:15 AM EST) [facility] Glucose, UA Negative Negative Ketones, UA Negative Negative Blood, UA Negative Negative Bilirubin, UA Negative Negative Urobilinogen, UA Normal Normal Protein, UA Trace(A) Negative Nitrite, UA Negative Negative Clarity, UA Clear Clear Color, UA Yellow Light Yellow, Yellow Urine Narrative Resulting Agency Comment [facility] Provider URINE ORDERABLES Final Re sult * (ABNORMAL) Renal Function Panel w/o EGFR (03/20/2025 7:15 AM EST) [facility] Glucose 153 BUN 14 CO2 25(A) 13 - 22 mmol/L Creatinine 1.20 Potassium 4.2 Sodium 137 Chloride 103 Phosphorus 3.8 2.5 - 4.9 mg/dL Calcium 9.7 EGFR 67 mg/dL Albumin 4.4 3.5 - 5.0 g/dL Blood Narrative Resulting Agency Comment [facility] Provider LAB BLOOD ORDERABLES Denisse l Result * (ABNORMAL) CBC and differential (03/20/2025 7:15 AM EST) [facility] Hemoglobin 13.3(A) 13.5 - 17.5 g/dL [...] 8.5 10^3/mL Blood Narrative Resulting Agency Comment [facility] Historical Provider LAB BLOOD ORDERABLES Denisse l Result * Hepatic Function Panel (03/20/2025 7:15 AM EST) Bilirubin, Direct 0.2 Bilirubin, Indirect 0.4 Alkaline Phosphatase 71 ALT 19 AST 21 Total Bilirubin 0.6 Total Protein 7.1 Plasma Narrative Resulting Agency Comment [facility] Historical Provider LAB BLOOD ORDERABLES Denisse l Result documented in this encounter Visit Diagnoses Not on filedocumented in this encounter Additional Health Concerns Infection Onset Date Last Indicated Resolved Time C. difficile 01/28/2025 01/28/2025 Assessment Noted Time PHQ-9 Depression Total Score: 2 12/11/19 9:00 AM EDT documented as of this encounter Care Teams Upholsterer Apprentice Relationship Specialty Start Date End Date Enedina Mcguire NP [address] [place] [address] PCP - General Internal Medicine 10/05/24 Maureen Pantjoa, RN Txp Post Coordinator Transplant Hepatology 10/28/24 Chris Orosco MD [address] [place] [address] [address] [place] [address] Consulting Physician Transplant Hepatology 02/26/25 documented as of this encounter
--- OUTSIDE RECORDS SUMMARY | 2025-04-15 16:17 | XMS_ITS | Encounter Summary ---
Author Organization [facility] Address [address] [place] [address] Care Team Providers Care Mowing Machine Operator Name Role Phone Enedina Mcguire NP Primary Care Provider + [phone] Maureen Pantoja RN Unavailable Unavail able Chris Orosco MD Unavailable [phone] Source Comments This information has been disclosed [...] release of HIV test results or diagnoses. [id number] Encounter Details Date Type Department Care Team (Late st Contact Info) Description 03/30/2025 Chart Note [facility] Liver Transplant at [address] [address] Marlene Ro MA 03/27 Labs entered from [facility] Social History [...] Recorded In the past 12 months has [employer], gas, oil, or water company threatened [...] Progress Notes * Marlene Ro MA - 03/30/2025 10:15 AM EST 03/27 Labs entered from [facility] documented in this encounter Plan of Treatment Not on file documented as of this encounter Procedures Procedure Name Priority Date/Time Associated Diagnosis Comments PHATIDYLETHANOL (PETH) Routine 10:52 AM EST URINE PROTEIN, TOTAL, RANDOM (W/O CREATININE) Routine 03/27/2025 10:52 AM EST HEPATIC FUNCTION PANEL Routine 10:52 AM EST TACROLIMUS LEVEL Routine 03/27/2025 10:5 2 AM EST CREATININE, URINE, RANDOM Routine 03/27/2025 10:52 AM EST URINALYSIS W/RFL TO MICROSCOPIC Routine 03/27/2025 10:52 AM EST CBC AND DIFFERENTIAL Routine 03/27/2025 10:52 AM EST URINE CULTURE Routine 03/27/2025 10:52 AM EST MAGNESIUM Routine 03/27/2025 10:52 AM EST RENAL FUNCTION PANEL W/O EGFR Routine 03/27/2025 10:52 AM EST documented in this encounter Results * Phatidylethanol (PEth) (03/27/2025 10:52 AM EST) Phosphatidylethanol (PEth) Positive 390 Whole Blood us Historical Provider LAB BLOOD ORDERABLES Denisse l Result * (ABNORMAL) Tacrolimus level (03/27/2025 10:52 AM EST) [facility] Tacrolimus Lvl 18.2(A) 6 - 15 ng/mL Whole Blood Result [facility] LAB BLOOD ORDERABLES Denisse l Result * (ABNORMAL) Magnesium (03/27/2025 10:52 AM EST) [facility] Magnesium 1.1(A) 1.6 - 2.4 mg/dL Plasma Narrative Resulting Agency Comment [facility] Result [facility] LAB BLOOD ORDERABLES Denisse l Result * (ABNORMAL) Renal Function Panel w/o EGFR (03/27/2025 10:52 AM EST) [facility] Glucose 110 BUN 12 CO2 25(A) 13 - 22 mmol/L Creatinine 1.20 Potassium 3.8 Sodium 136 Chloride 99 Phosphorus 3.8 2.5 - 4.9 mg/dL Calcium 9.7 EGFR 67 mg/dL Albumin 4.7 3.5 - 5.0 g/dL Blood Narrative Resulting Agency Comment [facility] Result [facility] LAB BLOOD ORDERABLES Denisse l Result * Creatinine, urine, random (03/27/2025 10:52 AM EST) [facility] Creatinine, Urine 81 Urine Narrative Resulting Agency Comment [facility] Result [facility] Provider URINE ORDERABLES Final Re sult * Urinalysis w/Rfl to Microscopic (03/27/2025 10:52 AM EST) [facility] Glucose, UA Negative Negative Ketones, UA Negative Negative Blood, UA Negative Negative Bilirubin, UA Negative Negative Urobilinogen, UA Normal Normal Protein, UA Negative Negative Nitrite, UA Negative Negative pH, UA 7.0 4.5 - 8.0 Specific [place], UA 1.010 1.005 - 1.030 Clarity, UA Clear Clear Color, UA Yellow Light Yellow, Yellow Urine Narrative Resulting Agency Comment [facility] Result [facility] Provider URINE ORDERABLES Final Re sult * (ABNORMAL) CBC and differential (03/27/2025 10:52 AM EST) Hemoglobin 14.4 13.5 - 17.5 g/dL Hematocrit [...] [facility] Result [facility] LAB BLOOD ORDERABLES Denisse l Result * Urine Protein, Tot, Random (w/o Creat) (03/27/2025 10:52 AM EST) Total Protein, Ur 24.0 Urine Narrative Resulting Agency Comment [facility] Result [facility] Provider URINE ORDERABLES Final Re sult * Hepatic Function Panel (03/27/2025 10:52 AM EST) Bilirubin, Direct 0.2 Bilirubin, Indirect 0.7 Alkaline Phosphatase 74 ALT 25 AST 33 Total Bilirubin 0.9 Total Protein 7.1 Plasma Narrative Resulting Agency Comment [facility] Historical Provider LAB BLOOD ORDERABLES Denisse l Result * Urine culture (03/27/2025 10:52 AM EST) Urine Culture, Comprehensive no growth after 48 hours URINE SPECIMEN / Unknown Narrative Resulting Agency Comment [facility] Historical Provider MICROBIOLOGY - GENERAL OR DERABLES Final Result documented in this encounter Visit Diagnoses Not on filedocumented in this encounter Additional Health Concerns Infection Onset Date Last Indicated Resolved Time C. difficile 01/28/2025 01/28/2025 Assessment Noted Time PHQ-9 Depression Total Score: 2 12/11/19 25 9:00 AM EDT documented as of this encounter Care Teams Mowing Machine Operator Relationship Specialty Start Date End Date Enedina Mcguire NP [address] [place] [address] PCP - General Internal Medicine 10/05/24 Maureen Pantoja, ЮЛИЯ Txp Post Coordinator Transplant Hepatology 10/28/24 Chris Orosco MD [address] [place] [address] [address] [place] [address] Consulting Physician Transplant Hepatology 02/26/25 documented as of this encounter
--- OUTSIDE RECORDS SUMMARY | 2025-04-15 16:17 | XMS_ITS | Encounter Summary ---
Author Organization [facility] Address [address] [place] [address] Care Team Providers Care Control Valve Technician Name Role Phone Enedina Mcguire NP Primary Care Provider + [phone] Maureen Pantoja RN Unavailable Unavail able Chris Orosco MD Unavailable [phone] Source Comments This information has been disclosed [...] release of HIV test results or diagnoses. [id number] Reason for Visit * Reason Comments Medication Refill Encounter Details Date Type Department Care Team (Late st Contact Info) Description 03/31/2025 Refill [facility] Liver Transplant at [address] [address] Harvey Domínguez III, MD [address] [place] [address] Social History Tobacco Use Types Packs/Day Years Used Date Smoking Tobacco: Former Cigarettes Smokeless Tobacco: Current Alcohol Use Standard Drinks/Week Comments Yes 0 (1 standard drink = 0.6 oz pure alcohol) History of alcohol abuse, reports no use in 3 week- typically endorses use as 4 glasses of wine a days [facility] Utilities Answer Date Recorded In the past 12 months has th e [employer], [employer], oil, or water [email or web address] threatened to shut off services in your [...] as of this encounter Care Teams Control Valve Technician Relationship Specialty Start Date End Date Enedina Mcguire NP [address] [place] [address] PCP - General Internal Medicine 10/05/24 Maureen Pantoja RN Txp Post Coordinator Transplant Hepatology 10/28/24 Chris Orosco MD [address] [place] [address] [address] [place] [address] Consulting Physician Transplant Hepatology 02/26/25 documented as of this encounter
--- OUTSIDE RECORDS SUMMARY | 2025-04-15 16:17 | XMS_ITS | Encounter Summary ---
[facility] Address [address] [place] [address] Care Team Providers Care Procedure Manager Name Role Phone Enedina Mcguire APRN Primary Care Provider + Encounter Details Date Type Department Care Team ([facility] st Contact Info) Description 10/07/2024 Results Follow-Up [facility] INTERNAL MEDICINE [address] [place] [address] Enedina Mcguire APRN [address] [place], [place] [id number] Social History Tobacco Use Types Packs/Day Years [...] Recorded In the past 12 months has [employer], [employer], oil, or water [employer] threatened to shut off services in your [...] [facility] [...] [facility] INTERNAL MEDICINE [address] [place] [address] Enedina Mcguire APRN [address] [place] [address] 05/21/2025 12:30 PM EST Office Visit [facility] PAIN MANAGEMENT [address] [place] [address] Vazquez Christie PA-C [address] [place] [address] [place] [address] documented as of this encounter Visit Diagnoses Not on filedocumented in this encounter Additional Health Concerns Assessment Noted Time PHQ-2 Depression Total Score: 1 12/31/19 24 3:25 PM EDT documented as of this encounter Care Teams Procedure Manager Relationship Specialty Start Date End Date Enedina Mcguire APRN [address] [place] [id number] PCP - General Nurse Practitioner 10/27/24 documented as of this encounter
--- OUTSIDE RECORDS SUMMARY | 2025-04-15 16:17 | XMS_ITS | Encounter Summary ---
Author Organization [facility] Address [address] [place] [address] Care Team Providers Care Electric Power Machine Operator Name Role Phone Enedina Mcguire NP Primary Care Provider + [phone] Maureen Pantoja RN Unavailable Unavail able Chris Orosco MD Unavailable [phone] Source Comments This information has been disclosed [...] release of HIV test results or diagnoses. [id number] Encounter Details Date Type Department Care Team (Late st Contact Info) Description 03/02/2025 Telephone [facility] Liver Transplant at [address] [address] Marlene Ro MA Social History Tobacco Use Types Packs/Day Years Used Date Smoking Tobacco: Former Cigarettes Smokeless Tobacco: Current Alcohol Use Standard Drinks/Week Comments Yes 0 (1 standard drink = 0.6 oz pure alcohol) History of alcohol abuse, reports no use in 3 week- typically endorses use as 4 glasses of wine a days [facility] Utilities Answer Date Recorded In the past 12 months has [employer], gas, oil, or water [employer] threatened to shut off services in your [...] as of this encounter Care Teams Electric Power Machine Operator Relationship Specialty Start Date End Date Enedina Mcguire NP [address] [place] [address] PCP - General Internal Medicine 10/05/24 Maureen Pantoja, ЮЛИЯ Txp Post Coordinator Transplant Hepatology 10/28/24 Chris Orosco MD [address] [place] [address] [address] [place] [address] Consulting Physician Transplant Hepatology 02/26/25 documented as of this encounter
--- OUTSIDE RECORDS SUMMARY | 2025-04-15 16:18 | XMS_ITS | Encounter Summary ---
[facility] Address [address] [place] [address] Care Team Providers Care Epic Ambulatory Analysts Name Role Phone Enedina Mcguire APRN Primary Care Provider + Reason for Visit * Reason Comments Med Refill Encounter Details Date Type Department Care Team ([facility] st Contact Info) Description 03/16/2025 Refill [facility] INTERNAL MEDICINE [address] [place] [address] Enedina Mcguire APRN [address], [place] [id number] Erectile dysfunction, unspecified erectile dysfunction type Social [...] Recorded In the past 12 months has [employer], [email or web address], oil, or water [employer] threatened to shut off services in your [...] Score 0 10/02/2022 [facility] - Occupational Stress Questionnaire Answer Date [...] [facility] INTERNAL MEDICINE [address] [place] [address] Enedina Mcguire, AXLE BEARING POLISHER [address] [place] [address] 05/21/2025 12:30 PM EST Office Visit [facility] PAIN MANAGEMENT [address] [address] Vazquez Christie PA-C [address] [address] documented as of this encounter Visit Diagnoses Diagnosis Erectile dysfunction, unspecified erectile dysfunction type documented in this encounter Additional Health Concerns Assessment Noted Time PHQ-2 Depression Total Score: 1 12/31/19 24 3:25 PM EDT documented as of this encounter Care Teams Epic Ambulatory Analysts Relationship Specialty Start Date End Date Enedina Mcguire APRN [address] [place] [address] PCP - General Nurse Practitioner 10/27/24 documented as of this encounter
--- OUTSIDE RECORDS SUMMARY | 2025-04-15 16:18 | XMS_ITS | Encounter Summary ---
[facility] Organization [facility] Address [address] [place] [address] Care Team Providers Care [employer] Agriculture Teacher Name Role Phone Enedina Mcguire APRN Primary Care Provider + Encounter Details Date Type Department Care Team ([facility] st Contact Info) Description 02/23/[address] [facility] INTERNAL MEDICINE [address] [place] [address] Enedina Mcguire APRN [address] [place], [place] [id number] Social History Tobacco Use Types Packs/Day Years [...] Recorded In the past 12 months has [employer], [employer], oil, or water [employer] threatened to shut off services in [...] [place] - 02/24/2025 11:14 AM EDT Sent [employer] message to patient. * Telephone Encounter - [...] [facility] INTERNAL MEDICINE [address] [place] [address] Enedina Mcguire, SHEET WRITER [address] [place] [phone] 05/21/2025 12:30 PM EST Office Visit [facility] PAIN MANAGEMENT [address] [facility] [address] [place] [address] Vazquez Christie PA-C [address] [facility] [address] [place] [address] documented as of this encounter Visit Diagnoses Not on filedocumented in this encounter Additional Health Concerns Assessment Noted Time PHQ-2 Depression Total Score: 1 12/31/19 24 3:25 PM EDT documented as of this encounter Care Teams [employer] Agriculture Teacher Relationship Specialty Start Date End Date Enedina Mcguire APRN [address] [place] [address] PCP - General Nurse Practitioner 10/27/24 documented as of this encounter
--- OUTSIDE RECORDS SUMMARY | 2025-04-15 16:18 | XMS_ITS | Encounter Summary ---
Author Organization [facility] Address [address] [place] [address] Care Team Providers Care Legal Document Assistant Name Role Phone Enedina Mcguire NP Primary Care Provider + [phone] Maureen Pantoja RN Unavailable Unavail able Chris Orosco MD Unavailable [phone] Source Comments This information has been disclosed [...] release of HIV test results or diagnoses. [id number] [facility] Reason for Visit * Reason Comments Results Encounter Details Date Type Department Care Team (Late st Contact Info) Description 03/19/2025 Telephone [facility] Liver Transplant at [address] [address] Maureen Pantoja, ЮЛИЯ Results Social History Tobacco Use Types Packs/Day Years Used Date Smoking Tobacco: Former Cigarettes Smokeless Tobacco: Current Alcohol Use Standard Drinks/Week Comments Yes 0 (1 standard drink = 0.6 oz pure alcohol) History of alcohol abuse, reports no use in 3 week- typically endorses use as 4 glasses of wine a days [facility] Utilities Answer Date Recorded In the past 12 months has [employer], gas, oil, or water company threatened to [...] as of this encounter Care Teams Legal Document Assistant Relationship Specialty Start Date End Date Enedina Mcguire NP [address] [place] [address] PCP - General Internal Medicine 10/05/24 Maureen Pantoja RN Txp Post Coordinator Transplant Hepatology 10/28/24 Chris Orosco MD [address] [place] [address] [address] [place] [address] Consulting Physician Transplant Hepatology 02/26/25 documented as of this encounter
--- OUTSIDE RECORDS SUMMARY | 2025-04-15 16:18 | XMS_ITS | Clinical Summary ---
Author Organization Healthcare Address [address] [place] [address] Care Team Providers Care Database Tester Name Role Phone Lj Tapia Rohini RICKS Unavailable [phone] Enedina Mcguire APRN Primary Care Provider + [...] answer 07/14/2024 How often do you attend [facility] services? Patient unable to answer [...] drink first t deborah in the morning (EYE-CURRENCY MACHINE OPERATOR) to steady your nerves or to get rid of a hangover? 0 07/19/2024 CAGE Questionnaire Score 2 025 Utilities Answer Date Recorded In the past 12 months has th [employer], gas, oil, or water company threatened to [...] 2 - 13+ 2-dose series) 10/11/2010 09/13/2010 [id number]-13 Vaccine (4 - 2024- season) 2025 03/17/2021, [...] this topic Medical Devices Implanted Type Area Concrete Plant Laborer Device Identifier Shelf Expiration Date Model / Serial / Lot Concerto [place] Coil-07/03/2022 Implanted:06/15 by Timmy Brunner MD (Quantity not on file) Coil Abdomen Description:Multiple Coil Co ncerto Pgla [place] Detach COILS implanted on 07/03/2022 by Timmy Brunner MD at [facility]--info can be found in Care Everywhere for [facility] as of 11/15/23 Dona Coil-07/03/2022 Implanted:06/15 by Timmy Brunner MD (Quantity not on file) Coil Abdomen [employer] Description:Coil Emb Dona 3.7/Implanted: Qty: 1 on 07/03/2022 by Timmy Brunner MD at [facility] Plate Plate N/A: Neck Plug Vasc Anton Emb Amplatzer Implanted:06/15 by Timmy Brunner MD (Quantity not on file) Plug Other Vein / / [id number] Description:Plug Vasc Anton Em b Ampltz .027 [id number] - [id number] Implanted: Qty: 1 on 07/03/2022 by Timmy Brunner MD at [facility] Stent Gastro Panc 5fr 5cm - [id number] Implanted:Qty: 1 on 11/20/2023 by Devang Mcghee, RN at [facility] Pancreas [employer]-[id number] 08/13/2026 [id number] / / [id number] Procedures Procedure Name Priority Date/Time Associated Diagnosis [...] Reactive Non Reactive 07/14/2024 5:31 PM EST [facility] Comment:Screening for HIV 1 & 2 antibodies, and P24 antigen is NONREACTIVE. No confirmatory testing is required. Blood Venous blood specimen / Unknown Venipuncture / Unknown 07/14/2024 4:31 PM EST 07/14/2024 4:56 PM EST Laureano Salinas APRN, [facility] BLOOD ORDERA BLES Final Result Performing Organization Address City/[facility] Co de Phone Number [facility]ALTH[facility]ARE [facility] [address] [place] [address] * Hepatitis C Antibody (07/14/2024 4:31 PM EST) [facility] Signature Hepatitis C Antibody Negative Negative 07/14/2024 5:27 PM EST [facility] Blood Venous blood specimen / Unknown Venipuncture / Unknown 07/14/2024 4:31 PM EST 07/14/2024 4:54 PM EST Laureano Salinas APRN, [facility] BLOOD ORDERA BLES Final Result Performing Organization Address City/[facility] de Phone Number [facility] [address] [place] [address] from Last 3 Months or Most Recently Relevant to Health Maintenance Insurance [facility] [employer] Advance Directives * Full Code (Latest Code Status on File) Date Activated Date Inactivated Comments 07/11/2024 11:04 PM 07/23/2024 6:27 PM Question Answer Comments Patient has decision-making capacity? Yes * Full Code Date Activated Date Inactivated Comments 11/14/2023 10:15 PM 11/27/2023 9:08 PM Question Answer Comments Patient has decision-making capacity? Yes Care Teams Database Tester Relationship Specialty Start Date End Date Enedina Mcguire APRN [address] [place] [address] PCP - General 12/04/22 Lj Tapia APRN [address] [place] [address] Referring Physician Gastroenterology 07/18/22
--- OUTSIDE RECORDS SUMMARY | 2025-04-15 16:18 | XMS_ITS | Encounter Summary ---
[facility] Address [address] [place] [address] Care Team Providers Care Supervisor Fiberglass Boat Assembly Name Role Phone Enedina Mcguire APRN Primary Care Provider + Encounter Details Date Type Department Care Team (Late st Contact Info) Description 03/19/2025 Documentation [facility] PAIN MANAGEMENT [address] [address] Tye Song MD [address] [place] [id number] Social History Tobacco Use Types Packs/Day Years Used Date Smoking Tobacco: Former Cigarettes 4 20 Passive Smoke Exposure: Past Smokeless Tobacco: Current Comments:MARIJUANA USE ABOUT 2X PER WEEK - reports no use 08-05-2024 Alcohol Use Standard Drinks/Week Comments Not Currently 0 (1 standard drink = 0.6 oz pure alcohol) 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 [facility] Utilities Answer Date Recorded In the past 12 months has [employer], [employer], oil, or water [employer] threatened to shut off services in your [...] Score 0 10/02/2022 [facility] - Occupational Stress Questionnaire Answer Date [...] Song MD - 03/19/2025 9:37 AM EST [facility] [address] [place] [address] 03/19/2025 PROCEDURE: Greater Occipital Nerve Block -RIGHT [...] discharge. FOLLOW UP: As scheduled ADDITIONAL NOTES: [facility] Tye Song MD documented in this encounter Plan of Treatment Upcoming Encounters Date Type Department Care Team (Late st Contact Info) Description 05/18/2025 2:30 PM EST Office Visit [facility] INTERNAL MEDICINE [address] [place] [phone] Enedina Mcguire, INTERIOR DESIGN INSTRUCTOR [address] [place] [address] [phone] 05/21/2025 12:30 PM EST Office Visit [facility] PAIN MANAGEMENT [address] [address] Vazquez Christie PA-C [address] [place] [address] [address] [place] [phone] documented as of this encounter Visit Diagnoses Not on filedocumented in this encounter Additional Health Concerns Assessment Noted Time PHQ-2 Depression Total Score: 1 12/31/19 24 3:25 PM EDT documented as of this encounter Care Teams Supervisor Fiberglass Boat Assembly Relationship Specialty Start Date End Date Enedina Mcguire, INTERIOR DESIGN INSTRUCTOR [address] [place] [address] [id number] PCP - General Nurse Practitioner 10/27/24 documented as of this encounter
--- OUTSIDE RECORDS SUMMARY | 2025-04-15 16:18 | XMS_ITS | Encounter Summary ---
Author Organization [facility] Address [address] [place] [address] Care Team Providers Care Medicare Insurance Specialist Name Role Phone Enedina Mcguire NP Primary Care Provider + [phone] Maureen Pantoja RN Unavailable Unavail able Chris Orosco MD Unavailable [phone] Source Comments This information has been disclosed [...] release of HIV test results or diagnoses. [id number] Encounter Details Date Type Department Care Team (Late st Contact Info) Description 03/16/[address] [facility] Liver Transplant at [address] [address] Mitzy Gill MA Social History Tobacco Use Types Packs/Day Years Used Date Smoking Tobacco: Former Cigarettes Smokeless Tobacco: Current Alcohol Use Standard Drinks/Week Comments Yes 0 (1 standard drink = 0.6 oz pure alcohol) History of alcohol abuse, reports no use in 3 week- typically endorses use as 4 glasses of wine a days [facility] Utilities Answer Date Recorded In the past 12 months has [employer] electric, gas, oil, or water company threatened [...] documented as of this encounter Care Teams Medicare Insurance Specialist Relationship Specialty Start Date End Date Enedina Mcguire NP [address] [place] [address] PCP - General Internal Medicine 10/05/24 Maureen Pantoja, ЮЛИЯ Txp Post Coordinator Transplant Hepatology 10/28/24 Chris Orosco MD [address] [place] [address] [address] [place] [address] Consulting Physician Transplant Hepatology 02/26/25 documented as of this encounter
--- OUTSIDE RECORDS SUMMARY | 2025-04-15 16:18 | XMS_ITS | Encounter Summary ---
Author Organization [facility] Address [address] [place] [address] Care Team Providers Care Bar Pointer Name Role Phone Enedina Mcguire NP Primary Care Provider + [phone] Maureen Pantoja RN Unavailable Unavail able Chris Orosco MD Unavailable [phone] Source Comments This information has been disclosed [...] release of HIV test results or diagnoses. [id number] Encounter Details Date Type Department Care Team (Late st Contact Info) Description 03/16/2025 Chart Note [facility] Liver Transplant at [place] [address] [facility] [address] [place] [phone] Marlene Ro MA Magnesium Level from 03/13 Social History Tobacco Use Types Packs/Day Years Used Date Smoking Tobacco: Former Cigarettes Smokeless Tobacco: Current Alcohol Use Standard Drinks/Week Comments Yes 0 (1 standard drink = 0.6 oz pure alcohol) History of alcohol abuse, reports no use in 3 week- typically endorses use as 4 glasses of wine a days [facility] Utilities Answer Date Recorded In the past 12 months has [employer] electric, gas, oil, or water company threatened [...] documented as of this encounter Care Teams Bar Pointer Relationship Specialty Start Date End Date Enedina Mcguire NP [address] [place] [address] PCP - General Internal Medicine 10/05/24 Maureen Pantoja, ЮЛИЯ Txp Post Coordinator Transplant Hepatology 10/28/24 Chris Orosco MD [address] [place] [address] [address] [place] [address] Consulting Physician Transplant Hepatology 02/26/25 documented as of this encounter
--- OUTSIDE RECORDS SUMMARY | 2025-04-15 16:18 | XMS_ITS | Encounter Summary ---
Author Organization [facility] Address [address] [place] [address] Care Team Providers Care Corn Lab Technician Name Role Phone Enedina Mcguire APRN Primary Care Provider + Reason for Visit * Reason Onset Date Comments Med Refill 03/16/2025 Encounter Details Date Type Department Care Team ([facility] st Contact Info) Description 03/15/2025 Refill [facility] INTERNAL MEDICINE [address] [place] [address] Enedina Mcguire APRN [address] [place] [address] Acquired hypothyroidism Social History Tobacco Use Types Packs/Day Years Used Date Smoking Tobacco: Former Cigarettes 4 20 Passive Smoke Exposure: Past Smokeless Tobacco: Current Comments:MARIJUANA USE ABOUT 2X PER WEEK - reports no use 08-05-2024 Alcohol Use Standard Drinks/Week Comments Not Currently 0 (1 standard drink = 0.6 oz pure alcohol) 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 [facility] Utilities Answer Date Recorded In the past 12 months has [email or web address], gas, oil, or water [employer] threatened to shut off services in your [...] [facility] - Occupational Stress Questionnaire Answer [...] GED or equivalent No 07/09/2024 Preferred Language British 07/09/2024 PHQ-2 Answer Date Recorded Patient Health [...] [facility] INTERNAL MEDICINE [address] [place] [address] Enedina Mcguire, INFUSION PHARMACIST [address] [place] [address] 05/21/2025 12:30 PM EST Office Visit [facility] PAIN MANAGEMENT [address] [facility] [address] [place] [address] Vazquez Christie PA-C [address] [facility] [address] [place] [address] documented as of this encounter Visit Diagnoses Diagnosis Acquired hypothyroidism Unspecified hypothyroidism documented in this encounter Additional Health Concerns Assessment Noted Time PHQ-2 Depression Total Score: 1 12/31/19 24 3:25 PM EDT documented as of this encounter Care Teams Corn Lab Technician Relationship Specialty Start Date End Date Enedina Mcguire APRN [address] [place] [address] PCP - General Nurse Practitioner 10/27/24 documented as of this encounter
--- OUTSIDE RECORDS SUMMARY | 2025-04-15 16:18 | XMS_ITS | Encounter Summary ---
Author Organization [facility] Address [address] [place] [address] Care Team Providers Care Survey Field Technician Name Role Phone Enedina Mcguire NP Primary Care Provider + [phone] Maureen Pantoja RN Unavailable Unavail able Chris Orosco MD Unavailable [phone] Source Comments This information has been disclosed [...] release of HIV test results or diagnoses. [id number] Health Reason for Visit * Reason Comments Results Encounter Details Date Type Department Care Team (Late st Contact Info) Description 03/06/2025 Telephone [facility] Liver Transplant at [address] [address] Maureen Pantoja, ЮЛИЯ Results Social History Tobacco Use Types Packs/Day Years Used Date Smoking Tobacco: Former Cigarettes Smokeless Tobacco: Current Alcohol Use Standard Drinks/Week Comments Yes 0 (1 standard drink = 0.6 oz pure alcohol) History of alcohol abuse, reports no use in 3 week- typically endorses use as 4 glasses of wine a days [facility] Utilities Answer Date Recorded In the past 12 months has [employer], gas, oil, or water company threatened to [...] documented as of this encounter Care Teams Survey Field Technician Relationship Specialty Start Date End Date Enedina Mcguire NP [address] [place] [address] PCP - General Internal Medicine 10/05/24 Maureen Pantoja, ЮЛИЯ Txp Post Coordinator Transplant Hepatology 10/28/24 Chris Orosco MD [address] [facility] [address] [place] [address] Consulting Physician Transplant Hepatology 02/26/25 documented as of this encounter
--- OUTSIDE RECORDS SUMMARY | 2025-04-15 16:18 | XMS_ITS | Encounter Summary ---
Author Organization [facility] Address [address] [place] [address] Care Team Providers Care Retail Administrative Assistant Name Role Phone Enedina Mcguire APRN Primary Care Provider + Reason for Visit * Reason Comments Med Refill Encounter Details Date Type Department Care Team (Late st Contact Info) Description 07/20/2022 Refill [facility] GASTROENTEROLOGY [address] [facility] [address] [place] [address] Lj Tapia APRN [address] [place] [address] Secondary esophageal varices without bleeding Social History [...] or training? Not on file Preferred Language Khmer 07/03/2022 Sex and Gender Information Value Date [...] Visit [facility] INTERNAL MEDICINE [address] [place] [phone] Enedina Mcguire APRN [address] [place], [place] [phone] 05/21/2025 12:30 PM EST Office Visit [facility] PAIN MANAGEMENT [address] [address] Vazquez Christie PA-C [address] [facility] [address] [place] [address] documented as of this encounter Visit Diagnoses Diagnosis Secondary esophageal varices without bleeding documented in this encounter Additional Health Concerns Infection Onset Date Last Indicated Resolved Time COVID Screen (preop/placement) 07/28/2022 07/28/2022 07/29/2022 12:00 AM EDT documented as of this encounter Care Teams Retail Administrative Assistant Relationship Specialty Start Date End Date Enedina Mcguire APRN [address] [place] [address] [phone] PCP - General Nurse Practitioner 10/27/24 documented as of this encounter
--- OUTSIDE RECORDS SUMMARY | 2025-04-15 16:18 | XMS_ITS | Encounter Summary ---
Author Organization [facility] Address [address] [place] [address] Care Team Providers Care Audiovisual Technician Name Role Phone Enedina Mcguire NP Primary Care Provider + [phone] Maureen Pantoja RN Unavailable Unavail able Source [...] release of HIV test results or diagnoses. [id number] Reason for Visit * Reason Onset Date Comments Medication Refill 01/21/2025 Encounter Details Date Type Department Care Team (Late st Contact Info) Description 01/21/2025 Refill [facility] Liver Transplant at [address] [address] Harvey Domínguez III, MD [address] [place] [address] Encounter for therapeutic drug monitoring; S/P liver transplant ([facility]); Hypomagnesemia; Kidney transplant recipient; Hypertension, [...] glasses of wine a days [facility] Utilities Answer Date Recorded In the past 12 months has th e [employer], gas, oil, or water company threatened to [...] monitoring S/P liver transplant ([facility]) Hypomagnesemia Disorders of [...] documented as of this encounter Care Teams Audiovisual Technician Relationship Specialty Start Date End Date Enedina Mcguire NP [address] [place], [place] [phone] PCP - General Internal Medicine 10/05/24 Maureen Pantoja, ЮЛИЯ Txp Post Coordinator Transplant Hepatology 10/28/24 documented as of this encounter
--- OUTSIDE RECORDS SUMMARY | 2025-04-15 16:18 | XMS_ITS | Encounter Summary ---
Author Organization [facility] Address [address] [place] [address] Care Team Providers Care Wool Fleece Grader Name Role Phone Enedina Mcguire NP Primary Care Provider + [phone] Maureen Pantoja RN Unavailable Unavail able Chris Orosco MD Unavailable [phone] Source Comments This information has been disclosed [...] release of HIV test results or diagnoses. [id number] Encounter Details Date Type Department Care Team (Late st Contact Info) Description 03/04/2025 Chart Note [facility] Liver Transplant at [address] [address] Marlene Ro MA 03/04 Labs entered from [facility] Social History Tobacco Use Types Packs/Day Years Used Date Smoking Tobacco: Former Cigarettes Smokeless Tobacco: Current Alcohol Use Standard Drinks/Week Comments Yes 0 (1 standard drink = 0.6 oz pure alcohol) History of alcohol abuse, reports no use in 3 week- typically endorses use as 4 glasses of wine a days [facility] Utilities Answer Date Recorded In the past 12 months has [employer] electric, gas, oil, or water company threatened [...] were not included. 03/04 Labs entered from [facility] documented in this encounter Plan of Treatment [...] Phosphatidylethanol (PEth) Positive 587 Whole Blood Result [facility] LAB BLOOD ORDERABLES Denisse l Result * Tacrolimus level (03/04/2025 11:29 AM EDT) Tacrolimus Lvl 14.6 6 - 15 ng/mL Whole Blood Result [facility] LAB BLOOD ORDERABLES Denisse l Result * Urine culture (03/04/2025 11:29 AM EDT) Pathologist [facility] Urine Culture, Comprehensive no growth after 48 hours URINE SPECIMEN / Unknown Result [facility] MICROBIOLOGY - GENERAL OR DERABLES Final Result * (ABNORMAL) Magnesium (03/04/2025 11:29 AM EDT) Pathologist [facility] Magnesium 1.4(A) 1.6 - 2.4 mg/dL Plasma Narrative Resulting Agency Comment [facility] Result [facility] LAB BLOOD [...] Resulting Agency Comment [facility] Result [facility] LAB BLOOD ORDERABLES Denisse l Result * Creatinine, urine, random (03/04/2025 11:29 AM EDT) Creatinine, Urine 111 Urine Narrative Resulting Agency Comment [facility] Provider URINE ORDERABLES Final Re sult * (ABNORMAL) Urinalysis w/Rfl to Microscopic (03/04/2025 11:29 AM EDT) Pathologist [facility] Glucose, UA Negative Negative Ketones, UA Negative Negative Blood, UA Negative Negative Bilirubin, UA Negative Negative Urobilinogen, UA Normal Normal Protein, UA Trace(A) Negative Nitrite, UA Negative Negative pH, UA 5.5 4.5 - 8.0 Specific Dulzura, UA 1.020 1.005 - 1.030 Clarity, UA Clear Clear Color, UA Yellow Light Yellow, Yellow Urine Narrative Resulting Agency Comment [facility] Result [facility] Provider URINE ORDERABLES Final Re sult * Vitamin D 25 hydroxy (03/04/2025 11:29 AM EDT) Pathologist [facility] Vit D, 25-Hydroxy 38.4 Serum Narrative Resulting Agency Comment [facility] Provider LAB BLOOD ORDERABLES Denisse l Result * (ABNORMAL) CBC and differential (03/04/2025 11:29 AM EDT) Pathologist [facility] Hemoglobin 13.0(A) 13.5 - 17.5 g/dL Hematocrit [...] 7.7 10^3/mL Blood Narrative Resulting Agency Comment [facility] Provider LAB BLOOD ORDERABLES Denisse l Result * Urine Protein, Tot, Random (w/o Creat) (03/04/2025 11:29 AM EDT) Total Protein, Ur 27.0 Urine Narrative Resulting Agency Comment [facility] Provider URINE ORDERABLES Final Re sult * Hepatic Function Panel (03/04/2025 11:29 AM EDT) Bilirubin, Direct 0.2 Bilirubin, Indirect 0.7 Alkaline Phosphatase 155 ALT 39 AST 47 Total Bilirubin 0.9 Total Protein 7.5 Plasma Narrative Resulting Agency Comment [facility] Result [facility] Provider LAB BLOOD ORDERABLES Denisse l Result documented in this encounter Visit Diagnoses Not on filedocumented in this encounter Additional Health Concerns Infection Onset Date Last Indicated Resolved Time C. difficile 01/28/2025 01/28/2025 Assessment Noted Time PHQ-9 Depression Total Score: 2 12/11/19 25 9:00 AM EDT documented as of this encounter Care Teams Wool Fleece Grader Relationship Specialty Start Date End Date Enedina Mcguire NP [address] [place] [address] PCP - General Internal Medicine 10/05/24 Maureen Pantoja, RN Txp Post Coordinator Transplant Hepatology 10/28/24 Chris Orosco MD [address] [place] [address] [address] [place] [address] Consulting Physician Transplant Hepatology 02/26/25 documented as of this encounter
--- OUTSIDE RECORDS SUMMARY | 2025-04-15 16:18 | XMS_ITS | Encounter Summary ---
Author Organization [facility] Address [address] [place] [address] Care Team Providers Care Bobbin Cleaner Hand Name Role Phone Enedina Mcguire APRN Primary Care Provider + Reason for Visit * Reason Onset Date Comments Med Refill 03/20/2025 Encounter Details Date Type Department Care Team ([facility] st Contact Info) Description 03/19/2025 Refill [facility] INTERNAL MEDICINE [address] [place] [address] Enedina Mcguire APRN [address] [place] [address] Low testosterone in male Social [...] Recorded In the past 12 months has [employer], gas, oil, or water [employer] threatened to [...] Score 0 10/02/2022 [facility] - Occupational Stress Questionnaire Answer [...] Visit [facility] INTERNAL MEDICINE [address] [place] [address] Eneidna Mcguire APRN [address] [place] [address] 05/21/2025 12:30 PM EST Office Visit [facility] PAIN MANAGEMENT [address] [facility] [address] [place] [address] Vazquez Christie PA-C [address] [facility] [address] [place] [address] documented as of this encounter Visit Diagnoses Diagnosis Low testosterone in male documented in this encounter Additional Health Concerns Assessment Noted Time PHQ-2 Depression Total Score: 1 12/31/19 24 3:25 PM EDT documented as of this encounter Care Teams Bobbin Cleaner Hand Relationship Specialty Start Date End Date Enedina Mcguire APRN [address] [place] [address] PCP - General Nurse Practitioner 10/27/24 documented as of this encounter
--- OUTSIDE RECORDS SUMMARY | 2025-04-15 16:18 | XMS_ITS | Encounter Summary ---
Author Organization [facility] Address [address] [place] [address] Care Team Providers Care Sales Team Member Name Role Phone Enedina Mcguire NP Primary Care Provider + [phone] Maureen Pantoja RN Unavailable Unavail able Chris Orosco MD Unavailable [phone] Source Comments This information has been disclosed [...] release of HIV test results or diagnoses. [id number] Reason for Visit * Reason Comments Medication Refill Encounter Details Date Type Department Care Team (Late st Contact Info) Description 03/12/2025 Refill [facility] Liver Transplant at [address] [address] Lydia Sanchez MD [address] [place] [address] Liver/[place] [address] Encounter for therapeutic drug monitoring; S/P liver transplant ([facility]); Hypomagnesemia; Kidney transplant recipient; Hypertension, [...] as 4 glasses of wine a days [facility] Utilities Answer Date Recorded In the past 12 months has th e [employer], [employer], oil, or water company threatened to shut [...] as of this encounter Care Teams Sales Team Member Relationship Specialty Start Date End Date Enedina Mcguire NP [address] [place] [address] PCP - General Internal Medicine 10/05/24 Maureen Pantoja, RN Txp Post Coordinator Transplant Hepatology 10/28/24 Chris Orosco MD [address] [place] [address] 3[address] [place] [address] Consulting Physician Transplant Hepatology 02/26/25 documented as of this encounter
--- OUTSIDE RECORDS SUMMARY | 2025-04-15 16:18 | XMS_ITS | Encounter Summary ---
Author Organization [facility] Address [address] [place] [address] Care Team Providers Care Moisture Conditioner Operator Name Role Phone Enedina Mcguire APRN Primary Care Provider + Encounter Details Date Type Department Care Team (Late st Contact Info) Description 03/02/2025 Telephone [facility] PAIN MANAGEMENT [address] [address] Georgina Rainey MA Social History Tobacco Use Types Packs/Day Years Used Date Smoking Tobacco: Former Cigarettes 4 20 Passive Smoke Exposure: Past Smokeless Tobacco: Current Comments:MARIJUANA USE ABOUT 2X PER WEEK - reports no use 08-05-2024 Alcohol Use Standard Drinks/Week Comments Not Currently 0 (1 standard drink = 0.6 oz pure alcohol) 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 [facility] Utilities Answer Date Recorded In the past 12 months has [employer], [employer], oil, or water [employer] threatened to shut off services in your [...] Brief Depression Severity Measure Score 0 10/02/2022 [facility] - Occupational Stress Questionnaire Answer Date Recorded [...] encounter Miscellaneous Notes * Telephone Encounter - eGorgina Rainey MA - 03/02/2025 12:47 PM EDT [...] [facility] INTERNAL MEDICINE [address] [place] [phone] Enedina Mcguire, RETAIL VISUAL MERCHANDISER [address] [place] [address] 05/21/2025 12:30 PM EST Office Visit [facility] PAIN MANAGEMENT [address] [id number] Vazquez Christie PA-C [address] [phone] documented as of this encounter Visit Diagnoses Not on filedocumented in this encounter Additional Health Concerns Assessment Noted Time PHQ-2 Depression Total Score: 1 12/31/19 24 3:25 PM EDT documented as of this encounter Care Teams Moisture Conditioner Operator Relationship Specialty Start Date End Date Enedina Mcguire APRN [address] [place] [address] PCP - General Nurse Practitioner 10/27/24 documented as of this encounter
--- OUTSIDE RECORDS SUMMARY | 2025-04-15 16:18 | XMS_ITS | Encounter Summary ---
Author Organization [facility] Address [address] [place] [address] Care Team Providers Care Industrial Diamond Polisher Name Role Phone Enedina Mcguire NP Primary Care Provider + [phone] Maureen Pantoja RN Unavailable Unavail able Chris Orosco MD Unavailable [phone] Source Comments This information has been disclosed [...] release of HIV test results or diagnoses. [id number] Encounter Details Date Type Department Care Team (Late st Contact Info) Description 03/10/2025 Telephone [facility] Liver Transplant at [address] [address] Marlene Ro MA Social History Tobacco Use Types Packs/Day Years Used Date Smoking Tobacco: Former Cigarettes Smokeless Tobacco: Current Alcohol Use Standard Drinks/Week Comments Yes 0 (1 standard drink = 0.6 oz pure alcohol) History of alcohol abuse, reports no use in 3 week- typically endorses use as 4 glasses of wine a days [facility] Utilities Answer Date Recorded In the past 12 months has [employer], gas, oil, or water [employer] threatened to shut off services in your [...] 03/10/2025 12:54 PM EDT Outgoing call to [facility] to verify if a CMV [...] as of this encounter Care Teams Industrial Diamond Polisher Relationship Specialty Start Date End Date Enedina Mcguire NP [address] [place] [address] PCP - General Internal Medicine 10/05/24 Maureen Pantoja, ЮЛИЯ Txp Post Coordinator Transplant Hepatology 10/28/24 Chris Orosco MD [address] [place] [address] [address] [place] [address] Consulting Physician Transplant Hepatology 02/26/25 documented as of this encounter
--- OUTSIDE RECORDS SUMMARY | 2025-04-15 16:18 | XMS_ITS | Encounter Summary ---
Author Organization [facility] Address [address] [place] [address] Care Team Providers Care Video Games Mechanic Name Role Phone Enedina Mcguire NP Primary Care Provider + [phone] Alicia Rankin RN Unavailable Unavail able Chris Orosco MD Unavailable [phone] Source Comments This information has been disclosed [...] release of HIV test results or diagnoses. [id number] Health Reason for Visit * Reason Comments Results Medication Dose Change Encounter Details Date Type Department Care Team (Late st Contact Info) Description 03/10/2025 Telephone [facility] Liver Transplant at [address] [address] Alicia Rankin, ЮЛИЯ Results; Medication Dose Change Social History Tobacco Use Types Packs/Day Years Used Date Smoking Tobacco: Former Cigarettes Smokeless Tobacco: Current Alcohol Use Standard Drinks/Week Comments Yes 0 (1 standard drink = 0.6 oz pure alcohol) History of alcohol abuse, reports no use in 3 week- typically endorses use as 4 glasses of wine a days [facility] Utilities Answer Date Recorded In the past 12 months has [employer] electric, gas, oil, or water company threatened [...] Weekly labs. Dose updated. Patient notified via [employer]. * Alicia Rankin RN - 03/16/2025 9:47 [...] as of this encounter Care Teams Video Games Mechanic Relationship Specialty Start Date End Date Enedina Mcguire NP [address] [place] [address] PCP - General Internal Medicine 10/05/24 Alicia Rankin, ЮЛИЯ Txp Post Coordinator Transplant Hepatology 10/28/24 Chris Orosco MD [address] [place] [address] [address] [place] [address] Consulting Physician Transplant Hepatology 02/26/25 documented as of this encounter
--- OUTSIDE RECORDS SUMMARY | 2025-04-15 16:18 | XMS_ITS | Encounter Summary ---
Author Organization [facility] Address [address] [place] [address] Care Team Providers Care Visual Journalist Name Role Phone Enedina Mcguire NP Primary Care Provider + [phone] Maureen Pantoja RN Unavailable Unavail able Chris Orosco MD Unavailable [phone] Source Comments This information has been disclosed [...] release of HIV test results or diagnoses. [id number] Encounter Details Date Type Department Care Team (Late st Contact Info) Description 03/16/2025 Telephone [facility] Kidney Transplant at [address] [address] Lizeth Walden, RN Social History Tobacco Use Types Packs/Day Years Used Date Smoking Tobacco: Former Cigarettes Smokeless Tobacco: Current Alcohol Use Standard Drinks/Week Comments Yes 0 (1 standard drink = 0.6 oz pure alcohol) History of alcohol abuse, reports no use in 3 week- typically endorses use as 4 glasses of wine a days [facility] Utilities Answer Date Recorded In the past 12 months has [employer], gas, oil, or water company threatened to [...] documented as of this encounter Care Teams Visual Journalist Relationship Specialty Start Date End Date Enedina Mcguire NP [address] [place] [address] PCP - General Internal Medicine 10/05/24 Maureen Pantoja RN Txp Post Coordinator Transplant Hepatology 10/28/24 Chris Orosco MD [address] [place] [address] [address] [place] [address] Consulting Physician Transplant Hepatology 02/26/25 documented as of this encounter
--- OUTSIDE RECORDS SUMMARY | 2025-04-15 16:18 | XMS_ITS | Encounter Summary ---
Author Organization [facility] Address [address] [place] [address] Care Team Providers Care Industrial Property Appraiser Name Role Phone Enedina Mcguire NP Primary Care Provider + [phone] Maureen Pantoja RN Unavailable Unavail able Chris Orosco MD Unavailable [phone] Source Comments This information has been disclosed [...] release of HIV test results or diagnoses. [id number] Encounter Details Date Type Department Care Team (Late st Contact Info) Description 03/10/2025 Chart Note [facility] Liver Transplant at [address] [address] Marlene Ro MA 03/10 Labs entered from [facility] Social History Tobacco Use Types Packs/Day Years Used Date Smoking Tobacco: Former Cigarettes Smokeless Tobacco: Current Alcohol Use Standard Drinks/Week Comments Yes 0 (1 standard drink = 0.6 oz pure alcohol) History of alcohol abuse, reports no use in 3 week- typically endorses use as 4 glasses of wine a days [facility] Utilities Answer Date Recorded In the past 12 months has [employer], gas, oil, or water company threatened [...] were not included. 03/10 Labs entered from [facility] documented in this encounter Plan [...] Phosphatidylethanol (PEth) Positive 413 Whole Blood Result [facility] Provider MD LAB BLOOD ORDERABLES Denisse l Result * Tacrolimus level (03/10/2025 9:29 AM EDT) Tacrolimus Lvl 14.5 6 - 15 ng/mL Whole Blood Result [facility] MD LAB BLOOD ORDERABLES Denisse l Result * Cytomegalovirus DNA, Quant, RT PCR (03/10/2025 9:29 AM EDT) CMV Quant DNA PCR (Plasma) Negative Plasma Result [facility] MD LAB BLOOD ORDERABLES Denisse l Result * Creatinine, urine, random (03/10/2025 9:29 AM EDT) Creatinine, Urine 94 Urine Narrative Resulting Agency Comment [facility] Lab Result [facility] Provider URINE ORDERABLES Final Re sult * Urinalysis w/Rfl to Microscopic (03/10/2025 9:29 AM EDT) Pathologist [facility] Glucose, UA Negative Negative Ketones, UA Negative Negative Blood, UA Negative Negative Bilirubin, UA Negative Negative Urobilinogen, UA Normal Normal Protein, UA Negative Negative Nitrite, UA Negative Negative pH, UA 5.5 4.5 - 8.0 Specific [place], UA 1.015 1.005 - 1.030 Clarity, UA Clear Clear Color, UA Yellow Light Yellow, Yellow Urine Narrative Resulting Agency Comment [facility] Lab Result [facility] Provider URINE ORDERABLES Final Re sult * Urine Protein, Tot, Random (w/o Creat) (03/10/2025 9:29 AM EDT) Total Protein, Ur 21.0 Urine Narrative Resulting Agency Comment [facility] Provider MD URINE ORDERABLES Final Re sult * (ABNORMAL) Magnesium (03/10/2025 9:29 AM EDT) Pathologist [facility] Magnesium 0.9(A) 1.6 - 2.4 mg/dL Plasma Narrative Resulting Agency Comment [facility] Result [facility] Provider MD LAB BLOOD ORDERABLES Denisse l Result * Hepatic Function Panel (03/10/2025 9:29 AM EDT) Pathologist [facility] Bilirubin, Direct 0.2 Bilirubin, Indirect 0.5 Alkaline Phosphatase 102 ALT 28 AST 26 Total Bilirubin 0.7 Total Protein 6.7 Plasma Narrative Resulting Agency Comment [facility] Result [facility] LAB BLOOD ORDERABLES Denisse l Result * (ABNORMAL) Renal Function Panel w/o EGFR (03/10/2025 9:29 AM EDT) Pathologist [facility] Glucose 111 BUN 13 CO2 28(A) 13 - 22 mmol/L Creatinine 1.30 Potassium 3.9 Sodium 138 Chloride 100 Phosphorus 5.0(A) 2.5 - 4.9 mg/dL Calcium 9.2 EGFR 61 mg/dL Albumin 4.5 3.5 - 5.0 g/dL Blood Narrative Resulting Agency Comment [facility] Result [facility] LAB BLOOD ORDERABLES Denisse l Result [...] Narrative Resulting Agency Comment [facility] us Historical Provider LAB BLOOD ORDERABLES Denisse l Result documented in this encounter Visit Diagnoses Not on filedocumented in this encounter Additional Health Concerns Infection Onset Date Last Indicated Resolved Time C. difficile 01/28/2025 01/28/2025 Assessment Noted Time PHQ-9 Depression Total Score: 2 12/11/19 9:00 AM EDT documented as of this encounter Care Teams Industrial Property Appraiser Relationship Specialty Start Date End Date Enedina Mcguire NP [address] [place] [address] PCP - General Internal Medicine 10/05/24 Maureen Pantoja, ЮЛИЯ Txp Post Coordinator Transplant Hepatology 10/28/24 Chris Orosco MD [address] [place] [address] [address] [place] [address] Consulting Physician Transplant Hepatology 02/26/25 documented as of this encounter
--- OUTSIDE RECORDS SUMMARY | 2025-04-15 16:18 | XMS_ITS | Encounter Summary ---
Author Organization [facility] Address [address] [place] [address] Care Team Providers Care Gel Coater Name Role Phone Enedina Mcguire NP Primary Care Provider + [phone] Maureen Pantoja RN Unavailable Unavail able Chris Orosco MD Unavailable [phone] Source Comments This information has been disclosed [...] release of HIV test results or diagnoses. [id number] Health Reason for Visit * Reason Comments Critical Lab Results Encounter Details Date Type Department Care Team (Late st Contact Info) Description 03/10/2025 Telephone [facility] Liver Transplant at [address] [place] [address] Marisela Martinez MA Critical Lab Results Social History Tobacco Use Types Packs/Day Years Used Date Smoking Tobacco: Former Cigarettes Smokeless Tobacco: Current Alcohol Use Standard Drinks/Week Comments Yes 0 (1 standard drink = 0.6 oz pure alcohol) History of alcohol abuse, reports no use in 3 week- typically endorses use as 4 glasses of wine a days [facility] Utilities Answer Date Recorded In the past 12 months has [employer] electric, gas, oil, or water company threatened [...] EDT Shivani called from pts outpt lab [facility] to report that pt has [...] documented as of this encounter Care Teams Gel Coater Relationship Specialty Start Date End Date Enedina Mcguire NP [address] [place] [address] PCP - General Internal Medicine 10/05/24 Maureen Pantoja, ЮЛИЯ Txp Post Coordinator Transplant Hepatology 10/28/24 Chris Orosco MD [address] [place] [address] [address] [place] [address] Consulting Physician Transplant Hepatology 02/26/25 documented as of this encounter
--- OUTSIDE RECORDS SUMMARY | 2025-04-15 16:18 | XMS_ITS | Encounter Summary ---
Author Organization [facility] Address [address] [place] [address] Care Team Providers Care High School Admissions Representative Name Role Phone Enedina Mcguire NP Primary Care Provider + [phone] Maureen Pantoja RN Unavailable Unavail able Chris Orosco MD Unavailable [phone] Source Comments This information has been disclosed [...] release of HIV test results or diagnoses. [id number] Health Reason for Visit * Reason Comments Critical Lab Results Encounter Details Date Type Department Care Team (Late st Contact Info) Description 03/13/2025 Telephone [facility] Liver Transplant at [address] [address] Mitzy Gill MA Critical Lab Results Social History Tobacco Use Types Packs/Day Years Used Date Smoking Tobacco: Former Cigarettes Smokeless Tobacco: Current Alcohol Use Standard Drinks/Week Comments Yes 0 (1 standard drink = 0.6 oz pure alcohol) History of alcohol abuse, reports no use in 3 week- typically endorses use as 4 glasses of wine a days [facility] Utilities Answer Date Recorded In the past 12 months has [employer], gas, oil, or water company threatened [...] - 03/13/2025 8:23 AM EDT Ashley from [facility] lab called to report critical lab value [...] of this encounter Care Teams High School Admissions Representative Relationship Specialty Start Date End Date Enedina Mcguire NP [address] [place] [address] PCP - General Internal Medicine 10/05/24 Maureen Pantoja, ЮЛИЯ Txp Post Coordinator Transplant Hepatology 10/28/24 Chris Orosco MD [address] [facility] [address] [place] [address] Consulting Physician Transplant Hepatology 02/26/25 documented as of this encounter
--- OUTSIDE RECORDS SUMMARY | 2025-04-15 16:18 | XMS_ITS | Clinical Summary ---
Author Organization [facility] Address [address] [place] [address] Care Team Providers Care Addressograph Operator Name Role Phone Enedina Mcguire APRN [...] directed by provider Daily. 07/30/19 25 Active loratadine (CLARITIN) 10 MG tablet [...] 25 Active vitamin D (ERGOCALCIFEROL) 1.25 MG (36979 UT) capsule capsuleIndications :Vitamin D deficiency Take [...] Per Week. 4 kit 03/20/20 25 Active FLUoxetine (PROzac) 20 MG capsule Take 1 capsule by mouth Daily. 90 capsule 04/08/20 25 Active FLUoxetine (PROzac) 20 MG capsule Take 1 capsule by mouth Daily. 10/18/19 25 025 Discontin ued(Reord er) cyclobenzaprine (FLEXERIL) [...] Encounters Date Type Department Care Team Description [facility] [address] [place] [address] Enedina Mcguire APRN 03/19/2025 11:30 AM EST Outside Facility Service [facility] [address] [address] Tye Song MD 03/19/2025 Refill [facility] [address] [place] [address] Enedina Mcguire APRN Low testosterone in male 03/19/2025 Documentation [facility] [address] [address] Tye Song MD 03/16/[facility] [address] [place] [address] Enedina Mcguire APRN Erectile dysfunction, unspecified erectile dysfunction type 03/15/2025 Refill [facility] [address] [place] [address] Enedina Mcguire, ADMISSION LIAISON Acquired hypothyroidism 03/03/2025 1:45 PM EDT Office Visit [facility] [address] [facility] [address] [place] [address] Vazquez Christie PA-C Occipital neuralgia of right side (Primary Dx); Cervical spondylosis without myelopathy; Cervical pain (neck); Long-term use of high-risk medication; Cervical radiculopathy; Therapeutic drug monitoring; Chronic pain syndrome 03/03/2025 Travel 03/02/2025 Telephone [facility] [address] [address] Georgina Rainey MA 02/23/2025 Prior Authorization [facility] [address] [place] [address] Enedina Mcguire, ADMISSION LIAISON 02/23/2025 Results Follow-Up [facility] [address] [place] [address] Enedina Mcguire, ADMISSION LIAISON 02/20/2025 Telephone [facility] [address] [place] [address] Enedina Mcguire, ADMISSION LIAISON Results 02/20/2025 Telephone [facility] [address] [address] Georgina Rainey MA 02/19/2025 7:45 AM EDT Outside Facility Service [facility] [address] [address] Tye Song MD 02/19/2025 Documentation [facility] [address] [address] Tye Song MD 02/17/2025 3:15 PM EDT Office Visit [facility] [address] [place] [address] Enedina Mcguire APRN Encounter for follow-up (Primary Dx); Kidney transplant recipient; Liver transplant recipient; Vitamin D deficiency; Low testosterone in male; History of systemic steroid therapy 02/17/2025 Telephone [facility] [address] [place] [address] Enedina Mcguire APRN 02/17/2025 Travel 02/11/2025 Telephone [facility] [address] [address] Tye Song MD [facility]- INJECTION SCHEDULE from Last 3 Months Immunizations Immunization Administration [...] Recorded In the past 12 months has [employer], gas, oil, or water [email or web address] threatened to shut off services in your [...] Brief Depression Severity Measure Score 0 10/02/2022 [facility] of Occupat ional Health - Occupational [...] Description 05/18/2025 2:30 PM EST Office Visit [facility] [address] [place] [phone] Enedina Mcguire, ADMISSION LIAISON [address] [place], [place] [id number] 05/21/2025 12:30 PM EST Office Visit [facility] [address] [place] [address] Vazquez Christie PA-C [address] [facility] [address] [place] [address] Health Maintenance Due Date Last [...] 0-49 Discontinued Medical Devices Implanted Type Area Service Center Supervisor Device Identifier Shelf Expiration Date Model / Serial / Lot Coil Concerto Pgla Hel Detach Sys 10mm 30cm - [id number] Implanted:Qty: 1 on 07/03/2022 by Timmy Brunner MD at [facility] Implant Left: Vein EV3 A [employer] [id number] / / [id number] Description:Coil is in the s hort gastric vein Coil Concerto Nyl Fleming Detach Sys 10mm 30cm - [id number] Implanted:Qty: 1 on 07/03/2022 by Timmy Brunner MD at [facility] Implant Left: Vein EV3 A [employer] [id number] / / [id number] Description:Short gastric ve in Coil Concerto Nyl Fleming Detach Sys 10mm 30cm - [id number] Implanted:Qty: 1 on 07/03/2022 by Timmy Brunner MD at [facility] Implant Left: Vein EV3 A [employer] [id number] / / [id number] Description:Short gasrtic ve in Coil Concerto Nyl Fleming Detach Sys 10mm 30cm - [id number] Implanted:Qty: 1 on 07/03/2022 by Timmy Brunner MD at [facility] Implant Left: Vein EV3 A [employer] [id number] / / [id number] Description:Short gastric ve in Coil Concerto Nyl Fleming Detach Sys 8mm 30cm - [id number] Implanted:Qty: 1 on 07/03/2022 by Timmy Brunner MD at [facility] Implant Left: Vein EV3 A [employer] [id number] / / [id number] Description:Short gastric ve in Coil Concerto Nyl Fleming Detach Sys 8mm 30cm - [id number] Implanted:Qty: 1 on 07/03/2022 by Timmy Brunner MD at [facility] Implant Left: Vein EV3 A [employer] [id number] / / [id number] Description:Short gastric ve in Sys Del Liq Emb Trufill Nbca 1g Vl - [id number] Implanted:Qty: 1 on 07/03/2022 by Timmy Brunner MD at [facility] Implant Left: Vein [facility] [id number] / / [id number] Description:Short gastric ve in Plug Vasc Anton Emb Ampltz .027 7db8c66dx - [id number] Implanted:Qty: 1 on 07/03/2022 by Timmy Brunner MD at [facility] Implant Left: Vein [employer] [id number] / / [id number] Description:Coronary vein Coil Concerto Nyl Fleming Detach Sys 8mm 30cm - [id number] Implanted:Qty: 1 on 07/03/2022 by Timmy Brunner MD at [facility] Implant Left: Vein EV3 A [employer] [id number] / / [id number] Description:CORONARY VEIN Gelatin Emb Embocube 5.02mm 50mg Red - [id number] Implanted:Qty: 1 on 07/03/2022 by Timmy Brunner MD at [facility] Implant Left: Vein [employer] [id number] / / [id number] Description:SHORT GASTRIC VE IN Coil Emb Dona 3.7/Lp .035in 14cm 12mm - [id number] Implanted:Qty: 1 on 07/03/2022 by Timmy Brunner MD at [facility] Implant Left: Vein [employer] [id number] / / [id number] Description:SHORT GASTRIC VE IN Coil Concerto Pgla Fleming Detach Sys 12mm 30cm - [id number] Implanted:Qty: 1 on 07/03/2022 by Timmy Brunner MD at [facility] Implant Left: Vein EV3 A [employer] [id number] / / [id number] Description:Short gastric ve in Coil Concerto Nyl Fleming Detach Sys 8mm 30cm - [id number] Implanted:Qty: 1 on 07/03/2022 by Timmy Brunner MD at [facility] Implant Left: Vein EV3 A [employer] [id number] / / [id number] Description:SHORT GASTRIC VE IN Coil Concerto Nyl Fleming Detach Sys 8mm 30cm - [id number] Implanted:Qty: 1 on 07/03/2022 by Timmy Brunner MD at [facility] Implant Left: Vein EV3 A [employer] [id number] / / [id number] Description:Short gastric ve in Coil Concerto Nyl Fleming Detach Sys 8mm 30cm - [id number] Implanted:Qty: 1 on 07/03/2022 by Timmy Brunner MD at [facility] Implant Left: Vein EV3 A [employer] [id number] / / [id number] Description:Short gastric ve in Coil Concerto Pgla Hel Detach Sys 14mm 40cm - [id number] Implanted:Qty: 1 on 07/03/2022 by Timmy Brunner MD at [facility] Implant Left: Vein EV3 A [employer] [id number] / / [id number] Description:Short gastric ve in Coil Concerto Pgla Hel Detach Sys 14mm 40cm - [id number] Implanted:Qty: 1 on 07/03/2022 by Timmy Brunner MD at [facility] Implant Left: Vein EV3 A [employer] [id number] / / [id number] Description:Short gastric ve in Coil Concerto Pgla Fleming Detach Sys 14mm 30cm - [id number] Implanted:Qty: 1 on 07/03/2022 by Timmy Brunner MD at [facility] Implant Left: Vein EV3 A [employer] [id number] / / [id number] Description:Short gastric ve in Coil Concerto Pgla Fleming Detach Sys 14mm 30cm - [id number] Implanted:Qty: 1 on 07/03/2022 by Timmy Brunner MD at [facility] Implant Left: Vein EV3 A [employer] [id number] / / [id number] Description:Short gastric ve in Coil Concerto Pgla Fleming Detach Sys 14mm 30cm - [id number] Implanted:Qty: 1 on 07/03/2022 by Timmy Brunner MD at [facility] Implant Left: Vein EV3 A [employer] [id number] / / [id number] Description:Short gastric ve in Procedures Procedure Name [...] Acute (07/08/2024 10:33 PM EST) Pathologist [facility] Hepatitis B Surface Ag Non-Reacti ve Non-Reacti ve 07/09/2024 2:07 PM EST [facility] Hep A IgM Non-Reacti ve Non-Reacti ve 07/09/2024 2:07 PM EST [facility] Hep B C IgM Non-Reacti ve Non-Reacti ve 07/09/2024 2:07 PM EST [facility] Hepatitis C Ab Non-Reacti ve Non-Reacti ve 07/09/2024 2:07 PM EST [facility] Blood Line / Unknown 07/08/2024 10 :33 PM EST 07/08/2024 10:42 PM EST [facility] - 07/09/2024 2:07 PM EST Results may be falsely decreased if patient taking Biotin. us Chiquis JACOME LAB BLOOD ORDERABLES Final Resu lt [facility]
[address] [place] [address], * (ABNORMAL) Lipid Panel (10/15/2023 4:16 PM EDT) Pathologist [facility] Total Cholesterol 234(H) 0 - 200 mg/dL 10/16/2023 2:33 AM EDT [facility] Triglycerides 203(H) 0 - 150 mg/dL 10/16/2023 2:33 AM EDT [facility] HDL Cholesterol 41 40 - 60 mg/dL 10/16/2023 2:33 AM EDT [facility] LDL Cholesterol 156(H) 0 - 100 mg/dL 10/16/2023 2:33 AM EDT [facility] VLDL Cholesterol 37 5 - 40 mg/dL 10/16/2023 2:33 AM EDT [facility] LDL/HDL Ratio 3.72 10/16/2023 2:33 AM EDT [facility] Blood Venipuncture / Unknown 10/15/2023 4:16 PM EDT 10/15/2023 4:16 PM EDT Narrative [facility] - 10/16/2023 2:33 AM EDT Cholesterol [...] APRN LAB BLOOD ORDERABLES Fin al Result [facility]
[address] [place] [address], from Last 3 Months or Most Recently [...] Of Support Discussed With: Patient Care Teams Addressograph Operator Relationship Specialty Start Date End Date Enedina Mcguire APRN [address] [place] [address] PCP - General Nurse Practitioner 10/27/24
--- OUTSIDE RECORDS SUMMARY | 2025-04-15 16:18 | XMS_ITS | Encounter Summary ---
Author Organization [facility] Address [address] [place] [address] Care Team Providers Care Billet Driller Name Role Phone Enedina Mcguire APRN Primary [...] Recorded In the past 12 months has [employer], gas, oil, or water [employer] threatened to shut off services in your [...] Brief Depression Severity Measure Score 0 10/02/2022 [facility] of Occupat ional Health - Occupational Stress [...] GED or equivalent No 07/09/2024 Preferred Language Wallisian 07/09/2024 PHQ-2 Answer Date Recorded Patient Health [...] [facility] INTERNAL MEDICINE [address] [place] [address] Enedina Mcguire APRN [address] [place] [address] [phone] 05/21/2025 12:30 PM EST Office Visit [facility] [address] [address] Vazquez Christie PA-C [address] [place] [address] documented as of this encounter Visit Diagnoses Not on filedocumented in this encounter Additional Health Concerns Assessment Noted Time PHQ-2 Depression Total Score: 1 12/31/19 24 3:25 PM EDT documented as of this encounter Care Teams Billet Driller Relationship Specialty Start Date End Date Enedina Mcguire APRN [address] [place] [address] [phone] PCP - General Nurse Practitioner 10/27/24 documented as of this encounter
--- OUTSIDE RECORDS SUMMARY | 2025-04-15 16:18 | XMS_ITS | Encounter Summary ---
Author Organization [facility] Address [address] [place] [address] Care Team Providers Care Tafe Lecturer Name Role Phone Enedina Mcguire NP Primary Care Provider + [phone] Maureen Pantoja RN Unavailable Unavail able Chris Orosco MD Unavailable [phone] Source Comments This information has been disclosed [...] release of HIV test results or diagnoses. [id number] Encounter Details Date Type Department Care Team (Late st Contact Info) Description 03/10/2025 Telephone [facility] Kidney Transplant at [address] [address] Lizeth Walden, RN Social History Tobacco Use Types Packs/Day Years Used Date Smoking Tobacco: Former Cigarettes Smokeless Tobacco: Current Alcohol Use Standard Drinks/Week Comments Yes 0 (1 standard drink = 0.6 oz pure alcohol) History of alcohol abuse, reports no use in 3 week- typically endorses use as 4 glasses of wine a days [facility] Utilities Answer Date Recorded In the past 12 months has [employer], gas, oil, or water [employer] threatened to shut off services in [...] documented as of this encounter Care Teams Tafe Lecturer Relationship Specialty Start Date End Date Enedina Mcguire NP [address] [place] [address] PCP - General Internal Medicine 10/05/24 Maureen Pantoja, ЮЛИЯ Txp Post Coordinator Transplant Hepatology 10/28/24 Chris Orosco MD [address] [place] [address] [address] [place] [address] Consulting Physician Transplant Hepatology 02/26/25 documented as of this encounter
--- OUTSIDE RECORDS SUMMARY | 2025-04-15 16:19 | XMS_ITS | Encounter Summary ---
Author Organization [facility] Address [address] [place] [address] Care Team Providers Care Can Coverer Name Role Phone Enedina Mcguire NP Primary Care Provider + [phone] Maureen Pantoja RN Unavailable Unavail able Source [...] release of HIV test results or diagnoses. [id number] Reason for Visit * Reason Comments Results Encounter Details Date Type Department Care Team (Riky st Contact Info) Description 02/12/2025 Telephone [facility] Liver Transplant at [address] [address] Maureen Pantoja, RN Results [...] days [facility] Utilities Answer Date Recorded In the past 12 months has [employer], gas, oil, or water company [...] Date End Date Enedina Mcguire NP [address] [place] [address] PCP - General Internal Medicine 10/05/24 Maureen Pantoja, ЮЛИЯ Txp Post Coordinator Transplant Hepatology 10/28/24 documented as of this encounter
--- OUTSIDE RECORDS SUMMARY | 2025-04-15 16:19 | XMS_ITS | Encounter Summary ---
Author Organization [employer] ([place], [place], [place], [place], [place]) Address [address] [place] [address] Care Team Providers Care Operations Management Trainee Name Role Phone Unavailable Primary Care Provider Unavailabl e Encounter Details Date Type Department Care Team (Late st Contact Info) Description 06/03/2018 Transcribed Document [facility] Family Medicine [facility] [place] [address] ProviderEbenezer MD [address] [place] [address] Social History Tobacco Use Types [...] - Historical ProviderMD - 06/03/2018 12:08 PM PICKING TECH ED Triage Entered On: 06/03/2018 12:17 EST [...] 12:17:41 EST) Problems(Active) HTN (hypertension) (SNOMED CT :0170610942 ) Name of Problem: HTN (hypertension) ; Recorder: KANU VELEZ RN; Confirmation: Confirmed ; Classification: Medical ; Code: [id number] ; Contributor System: 6APT ; Last Updated: 06/03/2018 12:14 EST ; Life Cycle Date: 06/03/2018 ; Life Cycle Status: Active ; Vocabulary: SNOMED CT Diagnoses(Active) Finger laceration Date: 06/03/2018 ; Diagnosis Type: Reason For Visit ; Confirmation: Complaint of ; Clinical Dx: Finger laceration ; Classification: Medical ; Clinical Service: Emergency medicine ; Code: PNED ; Probability: 0 ; Diagnosis Code: [id number] ED Height and Weight Height Source : Stated Height Entry Format : [place] Height, Feet : 6 ft(Converted to: 183 cm, 72 Inch) Height, Inches : 4 Inch(Converted to: 0 ft 4 Inch, 10.16 cm) Clinical Height : 193.04 cm Weight Source, ED : Standing scale Weight Entry Format : [place] Weight, Pounds : 265 lb Clinical Dosing Weight : 120.45 kg Body Surface Area (BSA) : 2.5 m2 Body Mass Index : 32.3 kg/m2 (HI) [place] Body Weight (IBW) : 85.74 kg KANU [...]
--- OUTSIDE RECORDS SUMMARY | 2025-04-15 16:19 | XMS_ITS | Referral Summary ---
Author Organization [employer] ([place], [place], [place]) Address [address] [place] [address] Care Team Providers Care Medical Billing Clerk Name Role Phone Unavailable Primary Care [...]
--- OUTSIDE RECORDS SUMMARY | 2025-04-15 16:19 | XMS_ITS | Encounter Summary ---
Author Organization [employer] ([place], [place], [place], [place]) Address [address] [place] [address] Care Team Providers Care Ski Lift Mechanic Name Role Phone Unavailable Primary Care Provider Unavailabl e Encounter Details Date Type Department Care Team (Late st Contact Info) Description 06/03/2018 Transcribed Document [facility] Family Medicine [facility] [place] [address] ProviderEbenezer MD [address] [place] [id number] Social History Tobacco Use Types Packs/Day Years [...] - Historical ProviderMD - 06/03/2018 3:03 PM BLOOD TESTER [facility] ED Discharge Entered On: 06/03/2018 15:03 EST Performed On: 06/03/2018 15:03 EST by Lizeth Almeida, hydrographic surveyor Process Patient Disposition : Discharge Personal Belongings [...] - 06/03/2018 15:03 EST Electronically signed by [facility] Conversion Premises Technician [place] at 08/29/2022 6:35 PM CDT documented in this encounter Plan of Treatment Not on file documented as of this encounter Visit Diagnoses Not on filedocumented in this encounter
--- OUTSIDE RECORDS SUMMARY | 2025-04-15 16:19 | XMS_ITS | Encounter Summary ---
Author Organization [facility] Address [address] [place] [address] Care Team Providers Care Windows Server Specialist Name Role Phone Enedina Mcguire NP Primary Care Provider + [phone] Maureen Pantoja RN Unavailable Unavail able Source [...] release of HIV test results or diagnoses. [id number] Health Encounter Details Date Type Department Care Team (Late st Contact Info) Description 02/03/2025 Chart Note [facility] Liver Transplant at [address] [place] [phone] Marlene Ro MA 02/03 Labs entered from [facility] Social History Tobacco Use Types Packs/Day Years Used Date Smoking Tobacco: Former Cigarettes Smokeless Tobacco: Current Alcohol Use Standard Drinks/Week Comments Yes 0 (1 standard drink = 0.6 oz pure alcohol) History of alcohol abuse, reports no use in 3 week- typically endorses use as 4 glasses of wine a days [facility] Utilities Answer Date Recorded In the past 12 months has [employer], gas, oil, or water company threatened to [...] were not included. 02/03 Labs entered from [facility] [...] Positive Norovirus Detected FECES / Unknown Result [facility] Provider BODY FLUIDS AND STOOLS OR DERABLES Edited Result - Final * Phatidylethanol (PEth) (02/03/2025 9:39 AM EDT) Phosphatidylethanol (PEth) Positive 312 Whole Blood Result [facility] LAB BLOOD ORDERABLES Denisse l Result * Tacrolimus level (02/03/2025 9:39 AM EDT) Tacrolimus Lvl 7.0 6 - 15 ng/mL Whole Blood Narrative Resulting Agency Comment [facility] Result [facility] LAB BLOOD ORDERABLES Denisse l Result * Cytomegalovirus DNA, Quant, RT PCR (02/03/2025 9:39 AM EDT) CMV Quant DNA PCR (Plasma) Negative Plasma Narrative Resulting Agency Comment [facility] Result [facility] LAB BLOOD ORDERABLES Denisse l Result * BK Virus Quantitative by PCR, Blood (02/03/2025 9:39 AM EDT) BK Virus Quant PCR PL Negative Plasma Narrative Resulting Agency Comment [facility] LAB BLOOD ORDERABLES Denisse l Result * Creatinine, urine, random (02/03/2025 9:39 AM EDT) Creatinine, Urine 79 Urine Narrative Resulting Agency Comment [facility] Result Critical access hospital URINE ORDERABLES Final Re sult * Urine Protein, Tot, Random (w/o Creat) (02/03/2025 9:39 AM EDT) Pathologist [facility] Total Protein, Ur 12.0 Urine Narrative Resulting Agency Comment [facility] Result [facility] Provider URINE ORDERABLES Final Re sult * Hepatic Function Panel (02/03/2025 9:39 AM EDT) Pathologist [facility] Bilirubin, Direct 0.1 Bilirubin, Indirect 0.4 Alkaline Phosphatase 61 ALT 15 AST 18 Total Bilirubin 0.5 Total Protein 6.4 Plasma Narrative Resulting Agency Comment [facility] Result Critical access hospital LAB BLOOD ORDERABLES Denisse l Result * (ABNORMAL) Magnesium (02/03/2025 9:39 AM EDT) Pathologist [facility] Magnesium 1.3(A) 1.6 - 2.4 mg/dL Plasma Narrative Resulting Agency Comment [facility] Result [facility] Provider LAB BLOOD ORDERABLES Denisse [...] Agency Comment [facility] Result [facility] Provider LAB BLOOD ORDERABLES Denisse l Result * Urinalysis w/Rfl to Microscopic (02/03/2025 9:39 AM EDT) Pathologist [facility] Glucose, UA Negative Negative Ketones, UA Negative Negative Blood, UA Negative Negative Bilirubin, UA Negative Negative Urobilinogen, UA Normal Normal Protein, UA Negative Negative Nitrite, UA Negative Negative pH, UA 6.0 4.5 - 8.0 Specific [place], UA 1.020 1.005 - 1.030 Clarity, UA Clear Clear Color, UA Yellow Light Yellow, Yellow Urine Narrative Resulting Agency Comment [facility] Historical Provider URINE ORDERABLES Final [...] 10^3/mL Blood Narrative Resulting Agency Comment [facility] Historical Provider LAB BLOOD ORDERABLES Denisse l Result documented in this encounter Visit Diagnoses Not on filedocumented in this encounter Additional Health Concerns Infection Onset Date Last Indicated Resolved Time C. difficile 01/28/2025 01/28/2025 Assessment Noted Time PHQ-9 Depression Total Score: 2 12/11/19 25 9:00 AM EDT documented as of this encounter Care Teams Windows Server Specialist Relationship Specialty Start Date End Date Enedina Mcguire NP [address] [place] [address] PCP - General Internal Medicine 10/05/24 Maureen Pantoja, ЮЛИЯ Txp Post Coordinator Transplant Hepatology 10/28/24 documented as of this encounter
--- OUTSIDE RECORDS SUMMARY | 2025-04-15 16:19 | XMS_ITS ---
Author Organization [facility] Address [facility] [place] [address] Care Team Providers Care Germ Drier Name Role Phone Enedina Mcguire NP Primary Care Provider + [phone] Maureen Pantoja RN Unavailable Unavail able Chris Orosco MD Unavailable +[phone] Transplant Episode Kidney Recipient [facility] ([place] [place]) [facility] Organ Received: Left Kidney Transplanted on 10/27/2024 Marked as Active Follow-up on 10/27/2024 Kidney CoordinatorJosr Weber RN Phone: N/A Fax: N/A Email: N/A [place] Organ Diagnosis Organ Primary Contributory Kidney Hepatorenal [...] N/A N/A Flaquito Mayen MD Txp Surgeon [phone] N/A Bruno Gonzalez MD Txp Demolition Expert [phone] N/A Yovanny Curran MD Referring Physician [phone] N/A Events Post-Transplant Pre-Transplant Admitted: 10/25/2024 Referred: 10/07/2024 Transplanted: 10/27/2024 Evaluation began: Discharged: 11/02/2024 Committee: 10/20/2024 Center waitlisted: 5
--- OUTSIDE RECORDS SUMMARY | 2025-04-15 16:19 | XMS_ITS | Encounter Summary ---
Author Organization [facility] ([place], [place], [place], [place], [place]) Address [address] [place] [address] Care Team Providers Care Product Manager Financial Services Name Role Phone Unavailable Primary Care Provider Unavailabl e Encounter Details Date Type Department Care Team (Late st Contact Info) Description 06/03/2018 Transcribed Document [facility] Family Medicine [place] [address] ProviderEbenezer MD [address] [place], [place] [phone] Social History Tobacco Use Types Packs/Day Years [...] - Historical ProviderMD - 06/03/2018 2:24 PM LAST PATTERN GRADER Electronically signed by Gabriela [facility] Conversion Director Of Professional Services Cerner at 08/29/2022 6:41 PM CDT documented in this encounter Plan of Treatment Not on file documented as of this encounter Visit Diagnoses Not on filedocumented in this encounter
--- OUTSIDE RECORDS SUMMARY | 2025-04-15 16:19 | XMS_ITS | Encounter Summary ---
Author Organization [employer] ([place], [place], [place], [place], [place]) Address [address] [place] [address] Care Team Providers Care Oyster Planter Name Role Phone Unavailable Primary Care Provider Unavaillia e Encounter Details Date Type Department Care Team (Late st Contact Info) Description 06/03/2018 Transcribed Document [facility] Family Medicine [facility] [address] ProviderEbenezer MD [address] [place] [address] Social History Tobacco Use Types [...] - Historical ProviderMD - 06/03/2018 3:04 PM OPTO MECHANICAL TECHNICIAN [place] [address] [facility] [address] PERSON INFORMATION Name JULIEN ZELAYA Age 33 Years 1985 Sex Male Language Swedish PCP SALLY EVERETT (REF) T Marital Status Single Med Service Emergency Medicine Acct# Arrival 06/03/2018 12:08:00 Visit Reason Finger laceration; CUT FINGERS Acuity 3 - Urgent LOS 000 02:56 Depart Date: 06/03/18 03:04 PM Address: [facility] [id number] Comment: PROVIDER INFORMATION Provider Role Assigned Unassigned Lizeth Almeida, ADJUNCT TEACHER Nurse 06/03/2018 12:39:09 DOMINIQUE BREWER PA-C ED [...] PURI # [address]C [address] [place], [place] [id number] [email or web address] (1[place] Within 2 to 3 days Comment: documented in this encounter Plan of Treatment Not on file documented as of this encounter Visit Diagnoses Not on filedocumented in this encounter
--- OUTSIDE RECORDS SUMMARY | 2025-04-15 16:19 | XMS_ITS | Encounter Summary ---
Author Organization [employer] ([place], [place], [place], [place], [place]) Address [address] [place] [address] Care Team Providers Care Assistant Professor Of Business Name Role Phone Unavailable Primary Care Provider Unavailabl e Encounter Details Date Type Department Care Team (Late st Contact Info) Description 06/03/2018 Transcribed Document [facility] Family Medicine [address] [place] [address] ProviderEbenezer MD [address] [place] [phone] Social History Tobacco Use Types Packs/Day Years [...] - Historical ProviderMD - 06/03/2018 12:08 PM CREEL CLEANER ED Assessment Entered On: 06/03/2018 14:51 EST Performed On: 06/03/2018 13:50 EST by Lizeth Almeida, CHIEF INVESTIGATOR Quick Look Assessment Level of Consciousness : Alert Affect/Behavior : Calm, Cooperative Orientation : Oriented x 4 Skin Color : Other: [place] Skin Temperature : Warm Skin Description : Dry Lizeth Almeida, RN - 06/03/2018 14:50 EST ED General-Functional Assess Communication Barrier : None Primary Language : [place] Citizen Any Spiritual/Cultural Needs or Requests : No [...]
--- OUTSIDE RECORDS SUMMARY | 2025-04-15 16:19 | XMS_ITS | Encounter Summary ---
Author Organization [facility] Address [address] [place] [address] Care Team Providers Care Split Leather Department Supervisor Name Role Phone Enedina Mcguire NP Primary Care Provider + [phone] Maureen Pantoja RN Unavailable Unavail able Chris Orosco MD Unavailable [phone] Source Comments This information has been disclosed [...] release of HIV test results or diagnoses. [id number] Encounter Details Date Type Department Care Team (Late st Contact Info) Description 02/23/2025 Chart Note [facility] Liver Transplant at [address] [address] Malrene Ro MA 02/18 Labs entered from [facility] Social History Tobacco Use Types Packs/Day Years Used Date Smoking Tobacco: Former Cigarettes Smokeless Tobacco: Current Alcohol Use Standard Drinks/Week Comments Yes 0 (1 standard drink = 0.6 oz pure alcohol) History of alcohol abuse, reports no use in 3 week- typically endorses use as 4 glasses of wine a days [facility] Utilities Answer Date Recorded In the past 12 months has [employer] electric, gas, oil, or water company threatened [...] were not included. 02/18 Labs entered from [facility] Pet Pending documented in this encounter [...] 2.4 mg/dL Plasma Narrative Resulting Agency Comment [facility] Result [facility] LAB BLOOD ORDERABLES Denisse l Result * (ABNORMAL) Renal Function Panel w/o EGFR (02/18/2025 10:34 AM EDT) Glucose 84 BUN 24 CO2 31(A) 13 - 22 mmol/L Creatinine 1.10 Potassium 4.3 Sodium 140 Chloride 99 Phosphorus 4.9 2.5 - 4.9 mg/dL Calcium 9.1 EGFR 74 mg/dL Albumin 4.4 3.5 - 5.0 g/dL Blood Narrative Resulting Agency Comment [facility] Result [facility] LAB BLOOD ORDERABLES Denisse l Result * Tacrolimus level (02/18/2025 10:34 AM EDT) [facility] Tacrolimus Lvl 10.7 6 - 15 ng/mL Whole Blood Narrative Resulting Agency Comment [facility] Result [facility] LAB BLOOD ORDERABLES Denisse l Result * Creatinine, urine, random (02/18/2025 10:34 AM EDT) Pathologist [facility] Creatinine, Urine 54 Urine Narrative Resulting Agency Comment [facility] Result [facility] URINE ORDERABLES Final Re sult * Urinalysis w/Rfl to Microscopic (02/18/2025 10:34 AM EDT) Glucose, UA Negative Negative Ketones, UA Negative Negative Blood, UA Negative Negative Bilirubin, UA Negative Negative Urobilinogen, UA Normal Normal Protein, UA Negative Negative pH, UA 5.5 4.5 - 8.0 Specific [place], UA 1.015 1.005 - 1.030 Clarity, UA Clear Clear Color, UA Yellow Light Yellow, Yellow Urine Narrative Resulting Agency Comment [facility] Historical Provider URINE ORDERABLES Final Re [...] 4.9 10^3/mL Blood Narrative Resulting Agency Comment [facility] Historical Provider LAB BLOOD ORDERABLES Denisse l Result * Urine Protein, Tot, Random (w/o Creat) (02/18/2025 10:34 AM EDT) Total Protein, Ur 22.0 Urine Narrative Resulting Agency Comment [facility] Historical Provider URINE ORDERABLES Final Re sult * Hepatic Function Panel (02/18/2025 10:34 AM EDT) Bilirubin, Direct 0.0 Bilirubin, Indirect 0.5 Alkaline Phosphatase 85 ALT 19 AST 24 Total Bilirubin 0.5 Total Protein 7.1 Plasma Narrative Resulting Agency Comment [facility] us Historical Provider LAB BLOOD ORDERABLES Denisse l Result documented in this encounter Visit Diagnoses Not on filedocumented in this encounter Additional Health Concerns Infection Onset Date Last Indicated Resolved Time C. difficile 01/28/2025 01/28/2025 Assessment Noted Time PHQ-9 Depression Total Score: 2 12/11/19 25 9:00 AM EDT documented as of this encounter Care Teams Split Leather Department Supervisor Relationship Specialty Start Date End Date Enedina Mcguire NP [address] [place] [address] PCP - General Internal Medicine 10/05/24 Maureen Pantoja, ЮЛИЯ Txp Post Coordinator Transplant Hepatology 10/28/24 Chris Orosco MD [address] [place] [address] [address] [place] [address] Consulting Physician Transplant Hepatology 02/26/25 documented as of this encounter
--- OUTSIDE RECORDS SUMMARY | 2025-04-15 16:19 | XMS_ITS ---
Author Organization [facility] Address [facility] [place] [address] Care Team Providers Care Heat Engineering Teacher Name Role Phone Enedina Mcguire NP Primary Care Provider + [phone] Maureen Pantoja RN Unavailable Unavail able Chris Orosco MD Unavailable [phone] Transplant Episode Liver Recipient [facility] ([place], [place]) - [facility] Organ Received: Liver Transplanted on 10/26/2024 Marked as Active Follow-up on 10/26/2024 Liver CoordinatorMaureen Pantoja RN Phone: N/A Fax: N/A Email: N/A [place] Organ Diagnosis Organ Primary Contributory Liver Alcohol-Associated [...] Care Team Name Role Phone Fax Email Maurene Pantoja RN Liver Coordinator N/A N/A N/A Chris Orosco MD Referring Physician Txp Photographic Reproduction Technician [phone] N/A Maureen Pantoja RN Txp Post Coordinator N/A N/A N/A NUBIA Barros Txp Transportation Maintenance Supervisor N/A N/A N/A Harvey Domínguez III, MD Txp Surgeon [phone] N/A Mary Butler RN Txp Pre Coordinator N/A N/A N/A Events Post-Transplant Pre-Transplant Admitted: 10/25/2024 Referred: 08/13/2024 Transplanted: 10/26/2024 Evaluation began: 5 Discharged: 11/02/2024 Committee: 10/14/2024 Center waitlisted: 5 Pending Checklist Tasks (Due on or before 05/16/2025) Name Due Date Attached Appoint ment Social Work Consult 01/05/2025
--- OUTSIDE RECORDS SUMMARY | 2025-04-15 16:19 | XMS_ITS | Encounter Summary ---
Author Organization [facility] Address [address] [place] [address] Care Team Providers Care Sap Portal Developer Name Role Phone Enedina Mcguire NP Primary Care Provider + [phone] Maureen Pantoja RN Unavailable Unavail able Source [...] release of HIV test results or diagnoses. [id number] Health Encounter Details Date Type Department Care Team (Late st Contact Info) Description 02/10/2025 Chart Note [facility] Liver Transplant at [address] [place] [phone] Marlene Ro MA 02/10 Labs entered from [facility] Social History Tobacco Use Types Packs/Day Years Used Date Smoking Tobacco: Former Cigarettes Smokeless Tobacco: Current Alcohol Use Standard Drinks/Week Comments Yes 0 (1 standard drink = 0.6 oz pure alcohol) History of alcohol abuse, reports no use in 3 week- typically endorses use as 4 glasses of wine a days [facility] Utilities Answer Date Recorded In the past 12 months has [employer], gas, oil, or water company threatened to [...] were not included. 02/10 Labs entered from [facility] documented in this encounter Plan of Treatment [...] Phosphatidylethanol (PEth) Positive 288 Whole Blood Result [facility] MD LAB BLOOD ORDERABLES Denisse l Result * BK Virus Quantitative by PCR, Blood (02/10/2025 9:33 AM EDT) [facility] BK Virus Quant PCR PL Negative Plasma Result [facility] MD LAB BLOOD ORDERABLES Denisse l Result * Tacrolimus level (02/10/2025 9:33 AM EDT) [facility] Tacrolimus Lvl 12.5 6 - 15 ng/mL Whole Blood Result [facility] MD LAB BLOOD ORDERABLES Denisse l Result * Cytomegalovirus DNA, Quant, RT PCR (02/10/2025 9:33 AM EDT) [facility] CMV Quant DNA PCR (Plasma) Negative Plasma Result [facility] MD LAB BLOOD ORDERABLES Denisse l Result * (ABNORMAL) Magnesium (02/10/2025 9:33 AM EDT) [facility] Magnesium 1.4(A) 1.6 - 2.4 mg/dL Plasma Narrative Resulting Agency Comment [facility] Result [facility] MD LAB BLOOD ORDERABLES Denisse l Result * (ABNORMAL) Renal Function Panel w/o EGFR (02/10/2025 9:33 AM EDT) [facility] Glucose 101 BUN 15 CO2 26(A) 13 - 22 mmol/L Creatinine 0.90 Potassium 4.1 Sodium 141 Chloride 102 Phosphorus 4.8 2.5 - 4.9 mg/dL Calcium 9.4 EGFR 93 mg/dL Albumin 4.7 3.5 - 5.0 g/dL Blood Narrative Resulting Agency Comment [facility] Result [facility] Provider LAB BLOOD ORDERABLES Denisse l Result * Creatinine, urine, random (02/10/2025 9:33 AM EDT) Creatinine, Urine 62 Urine Narrative Resulting Agency Comment [facility] Result [facility] Provider URINE ORDERABLES Final Re sult * Urinalysis w/Rfl to Microscopic (02/10/2025 9:33 AM EDT) Glucose, UA Negative Negative Ketones, UA Negative Negative Blood, UA Negative Negative Bilirubin, UA Negative Negative Urobilinogen, UA Normal Normal Protein, UA Negative Negative pH, UA 6.0 4.5 - 8.0 Specific [place], UA 1.020 1.005 - 1.030 Clarity, UA Clear Clear Color, UA Yellow Light Yellow, Yellow Urine Narrative Resulting Agency Comment [facility] Result [facility] Provider URINE ORDERABLES Final Re sult [...] 10^3/mL Blood Narrative Resulting Agency Comment [facility] Result [facility] Provider LAB BLOOD ORDERABLES Denisse l Result * Urine Protein, Tot, Random (w/o Creat) (02/10/2025 9:33 AM EDT) Total Protein, Ur 13.0 Urine Narrative Resulting Agency Comment [facility] Result [facility] Provider URINE ORDERABLES Final Re sult * Hepatic Function Panel (02/10/2025 9:33 AM EDT) Bilirubin, Direct 0.4 Bilirubin, Indirect 0.4 Alkaline Phosphatase 74 ALT 16 AST 25 Total Bilirubin 0.7 Total Protein 6.7 Plasma Narrative Resulting Agency Comment [facility] Result [facility] Provider LAB BLOOD ORDERABLES Denisse l Result documented in this encounter Visit Diagnoses Not on filedocumented in this encounter Additional Health Concerns Infection Onset Date Last Indicated Resolved Time C. difficile 01/28/2025 01/28/2025 Assessment Noted Time PHQ-9 Depression Total Score: 2 12/11/19 25 9:00 AM EDT documented as of this encounter Care Teams Sap Portal Developer Relationship Specialty Start Date End Date Enedina Mcguire NP [address] [place] [address] PCP - General Internal Medicine 10/05/24 Maureen Pantoja, RN Txp Post Coordinator Transplant Hepatology 10/28/24 documented as of this encounter
--- OUTSIDE RECORDS SUMMARY | 2025-04-15 16:19 | XMS_ITS | Clinical Summary ---
Author Organization [employer] [facility] ([place], [place], [place], [place], [place]) Address [address] [place] [address] Care Team Providers Care Regulator Operator Name Role Phone Unavailable Primary Care [...]
--- OUTSIDE RECORDS SUMMARY | 2025-04-15 16:19 | XMS_ITS | Encounter Summary ---
Author Organization [facility] Address [address] [place] [address] Care Team Providers Care Appliance Repairer Name Role Phone Enedina Mcguire NP Primary Care Provider + [phone] Maureen Pantoja RN Unavailable Unavail able Source [...] release of HIV test results or diagnoses. [id number] Health Encounter Details Date Type Department Care Team (Late st Contact Info) Description 02/23/2025 Telephone [facility] Liver Transplant at [address] [address] Marlene Ro MA Social History [...] Recorded In the past 12 months has [employer], gas, oil, or water [employer] threatened to shut off services in [...] Date End Date Enedina Mcguire NP [address] [place] [address] PCP - General Internal Medicine 10/05/24 Maureen Pantoja, ЮЛИЯ Txp Post Coordinator Transplant Hepatology 10/28/24 documented as of this encounter
--- OUTSIDE RECORDS SUMMARY | 2025-04-15 16:19 | XMS_ITS | Encounter Summary ---
Author Organization [employer] ([place], [place], [place], [place], [place]) Address [address] [place] [address] Care Team Providers Care Pit Steward Name Role Phone Unavailable Primary Care Provider Carmen jimenez Encounter Details Date Type Department Care Team (Late st Contact Info) Description 06/03/2018 Transcribed Document [facility] [place] [facility] [place] [address] ProviderEbenezer MD [address] [place] [address] Social History Tobacco Use Types [...] - Historical ProviderMD - 06/03/2018 3:04 PM CARTOGRAPHY/MAPPING TECHNICIAN [address] [place] [address] Patient Information Name: JULIEN ZELAYA [...] [address] [place] [address] [employer] (1) Within 2 to 3 days Patient [...] off of the skin. General Instructions??? Take [id number] and prescription medicines only as told by [...] 04/30/2006 Document Revised: 09/29/2016 Document Reviewed: 04/26/2015 [employer] Patient Education ? 2017 [employer] Allergies: No Known Medication Allergies Medication [...] verify that JULIEN ZELAYA was seen at [facility] Emergency Department on ,06/03/2018 15:04:17. [...] Assistance with quitting is available by contacting 2-806-AZDE-NOW. This is a free resource providing counseling, [...] Electronic Communications Privacy Act 18 U.S.C. ???Sections 2455-0717,?? and contain information intended for the specified [...] sure to sign up for the [facility] patient portal, which gives you 04/12 access to your medical information ??? including these discharge instructions ??? using your computer, smartphone, or tablet. Just go to [employer] to get started. Questions? Call . Acknowledgment [...]
--- OUTSIDE RECORDS SUMMARY | 2025-04-15 16:19 | XMS_ITS | Encounter Summary ---
Author Organization [employer] ([place], [place], [place], [place], [place]) Address [address] [place] [address] Care Team Providers Care Principal Clerk Name Role Phone Unavailable Primary Care Provider Carmen e Encounter Details Date Type Department Care Team (Late st Contact Info) Description 06/03/2018 Transcribed Document [facility] Family Medicine [facility] [place] [address] ProviderEbenezer MD [address] [place], [place] [id number] Social History Tobacco Use Types Packs/Day Years [...] - Historical ProviderMD - 06/03/2018 1:05 PM FRUIT OR NUT PICKER Patient: JULIEN ZELAYA Age: 33 years Sex: [...] 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 lacerations noted with bleeding controlled . [...] EST Height Source Stated Height Entry Format [place] Height/Length, UZBEK (ft) 6 ft Height/Length UZBEK 4 Inch CLINICALHEIGHT 193.04 cm [place] Body Weight 85.74 kg Weight Source, ED Standing scale Weight Entry Format [place] Weight [place] lb 265 lb CLINICALWEIGHT 120.45 kg Body [...] 14:22 EST, Discharge to: Home. Prescriptions: Prescription [facility] Physiotherapist Pharmacy: Keflex 500 mg oral capsule (Prescribe): [...]
--- OUTSIDE RECORDS SUMMARY | 2025-04-15 16:19 | XMS_ITS | Clinical Summary ---
Author Organization [facility] Address [address] [place] [address] Care Team Providers Care Senior Ux Designer Name Role Phone Enedina Mcguire NP Primary Care Provider + [phone] Maureen Pantoja RN Unavailable Unavail able Chris Orosco MD Unavailable [phone] Source Comments This information has been disclosed [...] therelease of HIV test results or diagnoses. [id number] Allergies Active Allergy Reactions Criticality Noted [...] Encounter for therapeutic drug monitoring,S/P liver transplant ([facility]),Hypomagne semia,Kidney transplant recipient,Hypertens ion, unspecified type,Gastroesophage al [...] ncounter for therapeutic drug monitoring,S/P liver transplant ([facility]),Hypomagne semia,Kidney transplant recipient,Hypertens ion, unspecified type,Gastroesophage al reflux disease, unspecified whether esophagitis present Take 1 tablet by mouth twice daily 60 tablet 5 025 Active testosterone cypionate 200 mg/mL Kit Inject into the muscle. 021 Active mycophenolate (CELLCEPT) 250 mg capsuleIndications: Encounter for therapeutic drug monitoring,S/P liver transplant ([facility]),Hypomagne semia,Kidney transplant recipient,Hypertens ion, unspecified type,Gastroesophage al reflux disease, unspecified whether esophagitis present Take 1 capsule (250 mg total) by mouth 2 times a day. 60 capsule 5 04/08/20 25 3:41 PM EST 025 Active predniSONE (DELTASONE) 5 MG tablet Take 1 tablet (5 mg total) by mouth daily. 025 Active NIFEdipine (PROCARDIA-XL) 30 MG (OSM) 24 hr tabletIndications:E ncounter for therapeutic drug monitoring,S/P liver transplant ([facility]),Hypomagne semia,Kidney transplant recipient,Hypertens ion, unspecified type,Gastroesophage al reflux disease, unspecified whether esophagitis present Take 1 tablet by mouth once daily 30 tablet 025 Active tacrolimus (PROGRAF) 1 MG capsuleIndications: Prevention of Kidney Transplant Rejection,Preventio n of Liver Transplant Rejection Take 5 capsules (5 mg total) by mouth 2 times a day. Indications: Prevention of Kidney Transplant Rejection, Prevention of Liver Transplant Rejection 300 capsule 5 025 Active magnesium chloride (SLOW-MAG) 71.5 mg TbEC Take 2 tablets (143 mg total) by mouth 3 times a day. Patient purchases OTC. Patient reporting some days only taking BID. 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 - [...] Encounters Date Type Department Care Team Description 04/15/2025 Chart Note [facility] Liver Transplant at [address] [phone] Marlene Ro MA 04/14 Labs entered from [facility] 04/07/2025 Telephone [facility] Liver Transplant at [address] [phone] Maureen Pantoja, RN Results 04/07/2025 Refill [facility] Liver Transplant at [address] [phone] Chris Orosco MD Encounter for therapeutic drug monitoring; S/P liver transplant ([facility]); Hypomagnesemia; Kidney transplant recipient; Hypertension, unspecified type; Gastroesophageal reflux disease, unspecified whether esophagitis present 04/06/2025 Telephone [facility] Liver Transplant at [address] [phone] Mitzy Schneider MA 04/03/2025 Telephone [facility] Liver Transplant at [address] [phone] Maureen Pantoja, RN Results 04/03/2025 Chart Note [facility] Liver Transplant at [address] [phone] Marlene Ro MA 04/03 Labs entered from [facility] 04/03/2025 Telephone [facility] Liver Transplant at [address] [phone] Mitzy Schneider MA ask pt how much Mg he is taking / day; returning pt's phone call; follow up on plan; plan of care for patient; follow up on plan of care per dr. gonzalez 03/31/2025 Refill [facility] Liver Transplant at [address] [place] [phone] Harvey Domínguez III, MD 03/30/2025 Chart Note [facility] Liver Transplant at [address] [place] [phone] Marlene Ro MA 03/27 Labs entered from [facility] 03/24/2025 Telephone [facility] Liver Transplant at [address] [place] [phone] Maureen Pantoja, RN Results; Medication Dose Change 03/20/2025 Chart Note [facility] Liver Transplant at [address] [place] [phone] Marlene Ro MA 03/20 Labs entered from [facility] 03/19/2025 Telephone [facility] Liver Transplant at [address] [place] [phone] Maureen Pantoja, RN Results 03/16/2025 Telephone [facility] Kidney Transplant at [address] [place] [phone] Lizeth Walden, ЮЛИЯ 03/16/2025 Chart Note [facility] Liver Transplant at [address] [place] [phone] Marlene Ro MA Magnesium Level from 03/1303/16/2025 Telephone [facility] Liver Transplant at [address] [place] [phone] Mitzy Schneider MA 03/13/2025 Telephone [facility] Liver Transplant at [address] [place] [phone] Mitzy Schneider MA Critical Lab Results 03/12/2025 Refill [facility] Liver Transplant at [address] [place] [phone] Lydia Sanchez MD Encounter for therapeutic drug monitoring; S/P liver transplant ([facility]); Hypomagnesemia; Kidney transplant recipient; Hypertension, unspecified type; Gastroesophageal reflux disease, unspecified whether esophagitis present 03/10/2025 Telephone [facility] Kidney Transplant at [address] [place] [phone] Lizeth Walden RN 03/10/2025 Telephone [facility] Liver Transplant at [address] [place] [phone] Maureen Pantoja, ЮЛИЯ Results; Medication Dose Change 03/10/2025 Chart Note [facility] Liver Transplant at [address] [place] [phone] Marlene Ro MA 03/10 Labs entered from [facility] 03/10/2025 Telephone [facility] Liver Transplant at [address] [place] [address] Marlene Ro MA 03/10/2025 Telephone [facility] Liver Transplant at [address] [place] [address] Marisela Martinez MA Critical Lab Results 03/06/2025 Telephone [facility] Liver Transplant at [address] [place] [address] Maureen Pantoja, RN Results 03/04/2025 Chart Note [facility] Liver Transplant at [address] [phone] Marlene Ro MA 03/04 Labs entered from [facility] 03/02/2025 Refill [facility] [address] [place] [phone] Feliciano Gomez CNP 03/02/2025 Telephone [facility] Liver Transplant at [address] [phone] Marlene Ro MA 02/26/2025 Telephone [facility] Liver Transplant at [address] [phone] Maureen Pantoja, ЮЛИЯ Results; Medication Dose Change 02/26/2025 Chart Note [facility] Liver Transplant at [address] [phone] Marlene Ro MA 02/24 Labs entered from [facility] 02/25/2025 10:50 AM EDT Office Visit [facility] Kidney Transplant at [address] [phone] Bruno Gonzalez MD Kidney transplant recipient (Primary Dx); Neck pain with history of cervical spinal surgery; S/P liver transplant ([facility]) 02/25/2025 Refill [facility] Liver Transplant at [address] [phone] Lydia Sanchez MD Encounter for therapeutic drug monitoring; S/P liver transplant ([facility]); Hypomagnesemia; Kidney transplant recipient; Hypertension, unspecified type; Gastroesophageal reflux disease, unspecified whether esophagitis present 02/23/2025 Chart Note [facility] Liver Transplant at [address] [phone] Marlene Ro MA 02/18 Labs entered from [facility] 02/23/2025 Telephone [facility] Liver Transplant at [address] [place] [address] Marlene Ro MA 02/17/2025 Telephone [facility] Liver Transplant at [address] [place] [address] Marlene Ro MA 02/13/2025 Telephone [facility] Liver Transplant at [address] [place] [address] Marisela Martinez MA Results 02/12/2025 10:50 AM EDT Office Visit [facility] Liver Transplant at [address] [place] [address] Chris Orosco MD Liver transplant recipient ([facility]) (Primary Dx); History of systemic steroid therapy; Kidney transplant recipient; Immunosuppressive management encounter following liver transplant ([facility]); Encounter for monitoring tacrolimus therapy; Vitamin D deficiency; Encounter for therapeutic drug monitoring; S/P liver transplant ([facility]); Hypomagnesemia; Hypertension, unspecified type; Gastroesophageal reflux disease, unspecified whether esophagitis present; Alcohol use disorder; Immunosuppression ([facility]); Viral disease exposure 02/12/2025 Social Work [facility] Liver Transplant at [address] [place] [phone] Kaylin Willard MSW 02/12/2025 Telephone [facility] Liver Transplant at [address] [place] [address] Maureen Pantoja, RN Results 02/10/2025 Chart Note [facility] Liver Transplant at [address] [place] [address] Marlene Ro MA 02/10 Labs entered from [facility] 02/09/2025 Chart Note [facility] Liver Transplant at [address] [phone] Marisela Martinez MA 02/09/2025 Telephone [facility] Liver Transplant at [address] [phone] Marisela Martinez MA 02/08/2025 Refill [facility] Liver Transplant at [address] [phone] Harvey Domínguez III, MD 02/04/2025 Telephone [facility] Liver Transplant at [address] [phone] Marlene Ro MA 02/03/2025 Telephone [facility] Liver Transplant at [address] [phone] Mitzy Schneider MA Results 02/03/2025 Telephone [facility] Liver Transplant at [address] [phone] Marlene Ro MA 02/03/2025 Chart Note [facility] Liver Transplant at [address] [phone] Marlene Ro MA 02/03 Labs entered from [facility] 01/27/2025 6:28 PM EDT - 01/30/2025 2:25 PM EDT Hospital Encounter [facility] [address] [place] [phone] Sunny Wei MD Haugen, Christine, MD Diarrhea of presumed infectious origin (Primary Dx); Immunosuppression (CMS-HCC) Discharge Disposition: Home or Self Care WITHOUT Home Care Services 01/27/2025 Travel 01/27/2025 Telephone [facility] Liver Transplant at [address] [phone] Marlene Ro MA 01/26/2025 Telephone [facility] Liver Transplant at [address] [phone] Maureen Pantoja, director of digital technology Management 01/23/2025 Telephone [facility] Liver Transplant at [address] [phone] Maureen Pantoja, RN Results 01/21/2025 Refill [facility] Liver Transplant at [address] [phone] Rose Montelongo MD 01/21/2025 Refill [facility] Liver Transplant at [address] [phone] Lydia Sanchez MD Encounter for therapeutic drug monitoring; S/P liver transplant ([facility]); Hypomagnesemia; Kidney transplant recipient; Hypertension, unspecified type; Gastroesophageal reflux disease, unspecified whether esophagitis present 01/21/2025 Refill [facility] Liver Transplant at [address] [phone] Harvey Domínguez III, MD Encounter for therapeutic drug monitoring; S/P liver transplant ([facility]); Hypomagnesemia; Kidney transplant recipient; Hypertension, unspecified type; Gastroesophageal reflux disease, unspecified whether esophagitis present 01/20/2025 Chart Note [facility] Liver Transplant at [address] [phone] Marlene Ro MA 01/20 Labs entered from [facility] 01/19/2025 Telephone [facility] Liver Transplant at [place] [address] [phone] Gladis Chisholm MA Critical Lab Results 01/17/2025 Refill [facility] Liver Transplant at [address] [phone] Havrey Domínguez III, MD Encounter for therapeutic drug monitoring; S/P liver transplant ([facility]); Hypomagnesemia; Kidney transplant recipient; Hypertension, unspecified type; Gastroesophageal reflux disease, unspecified whether esophagitis present 01/16/2025 Telephone [facility] Liver Transplant at [address] [phone] Maureen Pantoja, RN Results 01/15/2025 Chart Note [facility] Liver Transplant at [address] [phone] Marlene Ro MA 01/14 Labs entered from [facility] 01/15/2025 Telephone [facility] Liver Transplant at [address] [phone] Marlene Ro MA 01/15/2025 Telephone [facility] Liver Transplant at [address] [phone] Kaylin Willard MSW 01/14/2025 Telephone [facility] Liver Transplant at [address] [phone] Marlene Ro MA from Last 3 Months [...] 4 glasses of wine a days [facility] Utilities Answer Date Recorded In the past 12 months has th e [employer], gas, oil, or water company threatened [...] 10/25/2024, 10/05/2024, Additional history exists Renal Function/GFR 04/14/2026 04/14/2025, 1 06/03/2024, 03/27/2025, Additional history exists Immunization: DTaP/Tdap/Td ( 3 - Td or Tdap) 06/03/2028 06/03/2018, 09/13/2010 Hepatitis C Screening (MyChart) Completed 10/25/2024, 10/07/2024, 10/06/2024, Additional history exists HIV Screening Completed 11/25/2024, 10/12, 10/07/2024 Procedures Procedure Name Priority Date/Time Associated Diagnosis Comments MAGNESIUM Routine 04/14/2025 1:05 PM EST RENAL FUNCTION PANEL W/O EGFR Routine 04/14/2025 1:05 PM EST CREATININE, URINE, RANDOM Routine 2024 1:05 PM EST URINALYSIS W/RFL TO MICROSCOPIC Routine 04/14/2025 1:05 PM EST CBC AND DIFFERENTIAL Routine 04/14/2025 1:05 PM EST URINE PROTEIN, TOTAL, RANDOM (W/O CREATININE) Routine 04/14/2025 1:05 PM EST HEPATIC FUNCTION PANEL Routine 1:05 PM EST TACROLIMUS LEVEL Routine 04/03/2025 12:0 4 PM EST PHATIDYLETHANOL (PETH) Routine 12:04 PM EST MAGNESIUM Routine 04/03/2025 12:04 PM EST RENAL FUNCTION PANEL W/O EGFR Routine 04/03/2025 12:04 PM EST URINALYSIS W/RFL TO MICROSCOPIC Routine 04/03/2025 12:04 PM EST CBC AND DIFFERENTIAL Routine 04/03/2025 12:04 PM EST HEPATIC FUNCTION PANEL Routine 12:04 PM EST PHATIDYLETHANOL (PETH) Routine 10:52 AM EST TACROLIMUS LEVEL Routine 03/27/2025 10:5 2 AM EST MAGNESIUM Routine 03/27/2025 10:52 AM [...] Routine 9:30 PM EDT UPPER RESPIRATORY VIRAL/BACTERIAL PANEL-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 ARTS TEACHER ONLY Routine 01/27/2025 9:30 PM EDT LACTIC [...] S Routine 01/27/2025 8:20 PM EDT FUNGITELL [id number] Routine 01/28/20 8:20 PM EDT KATIE SCHAFER [...] HEPATIC FUNCTION PANEL Routine 10:53 AM EDT HIV-1 RNA, QUANTITATIVE, PCR Routine 11/25/2024 8:42 AM EDT S/P liver transplant ([facility]) Immunosuppression ([facility]) Viral disease exposure HEPATITIS C ANTIBODY STAT 10/25/2024 10:17 PM EDT TSH Routine 10/07/2024 6:37 PM EDT from Last 3 Months or Most Recently Relevant to Health Maintenance Results * Urine Protein, Tot, Random (w/o Creat) (04/14/2025 1:05 PM EST) Only the most recent of11 resultswithin the time period is included. Total Protein, Ur 22.0 Urine Narrative Resulting Agency Comment [facility] Historical Provider URINE ORDERABLES Final Re sult * Hepatic Function Panel (04/14/2025 1:05 PM EST) Only the most recent of16 resultswithin the time period is included. Bilirubin, Direct 0.1 Bilirubin, Indirect 0.4 Alkaline Phosphatase 62 ALT 40 AST 50 Total Bilirubin 0.5 Total Protein 6.9 Plasma Narrative Resulting Agency Comment [facility] Historical Provider LAB BLOOD ORDERABLES Denisse l Result * Creatinine, urine, random (04/14/2025 1:05 PM EST) Only the most recent of11 resultswithin the time period is included. Creatinine, Urine 123 Urine Narrative Resulting Agency Comment [facility] Result [facility] Provider URINE ORDERABLES Final Re sult * Urinalysis w/Rfl to Microscopic (04/14/2025 1:05 PM EST) Only the most recent of12 resultswithin the time period is included. Glucose, UA Negative Negative Ketones, UA Negative Negative Blood, UA Negative Negative Bilirubin, UA Negative Negative Urobilinogen, UA Normal Normal Protein, UA Negative Negative Nitrite, UA Negative Negative pH, UA 6.0 4.5 - 8.0 Specific Gilbert, UA 1.020 1.005 - 1.030 Clarity, UA Clear Clear Color, UA Yellow Light Yellow, Yellow Urine Narrative Resulting Agency Comment [facility] Result [facility] Provider URINE ORDERABLES Final Re sult * (ABNORMAL) CBC and differential (04/14/2025 1:05 PM EST) Only the most recent of12 resultswithin the time period is included. Hemoglobin 14.5 13.5 - 17.5 g/dL Hematocrit [...] 5.3 10^3/mL Blood Narrative Resulting Agency Comment [facility] Provider MD LAB BLOOD ORDERABLES Denisse l Result * Magnesium (04/14/2025 1:05 PM EST) Only the most recent of16 resultswithin the time period is included. Magnesium 1.6 1.6 - 2.4 mg/dL Plasma Narrative Resulting Agency Comment [facility] Result [facility] MD LAB BLOOD ORDERABLES Denisse l Result * (ABNORMAL) Renal Function Panel w/o EGFR (04/14/2025 1:05 PM EST) Only the most recent of12 resultswithin the time period is included. Glucose 101 BUN 14 CO2 26(A) 13 - 22 mmol/L Creatinine 1.80 Potassium 4.0 Sodium 142 Chloride 101 Phosphorus 4.7 2.5 - 4.9 mg/dL Calcium 10.0 EGFR 42 mg/dL Albumin 4.5 3.5 - 5.0 g/dL Blood Narrative Resulting Agency Comment [facility] Result [facility] MD LAB BLOOD ORDERABLES Denisse l Result * Phatidylethanol (PEth) (04/03/2025 12:04 PM EST) Only the most recent of9 resultswithin the time period is included. Phosphatidylethanol (PEth) Positive 496 Whole Blood Result [facility] MD LAB BLOOD ORDERABLES Denisse l Result * (ABNORMAL) Tacrolimus level (04/03/2025 12:04 PM EST) Only the most recent of14 resultswithin the time period is included. Tacrolimus Lvl 20.8(A) 6 - 15 ng/mL Whole Blood Result [facility] MD LAB BLOOD ORDERABLES Denisse l Result * Urine culture (03/27/2025 10:52 AM EST) Only the most recent of4 resultswithin the time period is included. Pathologist [facility] [place] Urine Culture, Comprehensive no growth after 48 hours URINE SPECIMEN / Unknown Narrative Resulting Agency Comment [facility] Result [facility] MICROBIOLOGY - GENERAL OR DERABLES Final Result * BK Virus Quantitative by PCR, Blood (03/20/2025 7:15 AM EST) Only the most recent of3 resultswithin the time period is included. Pathologist [facility] [place] BK Virus Quant PCR PL negative Plasma Result [facility] LAB BLOOD ORDERABLES Denisse l Result * Cytomegalovirus DNA, Quant, RT PCR (03/10/2025 9:29 AM EDT) Only the most recent of4 resultswithin the time period is included. Pathologist [facility] [place] CMV Quant DNA PCR (Plasma) Negative Plasma Result [facility] LAB BLOOD ORDERABLES Denisse l Result * Vitamin D 25 hydroxy (03/04/2025 11:29 AM EDT) Pathologist [facility] [place] Vit D, 25-Hydroxy 38.4 Serum Narrative Resulting Agency Comment [facility] Result [facility] LAB BLOOD ORDERABLES Denisse l Result * Clostridium difficile DNA Amplification (02/03/2025 11:04 AM EDT) Only the most recent of2 resultswithin the time period is included. Pathologist [facility] [place] Clost. Diff DNA Amp. Positive Norovirus Detected FECES / Unknown Result [facility] BODY FLUIDS AND STOOLS OR DERABLES Edited Result - Final * (ABNORMAL) Differential (01/30/2025 7:41 AM EDT) Only the most recent of2 resultswithin the time period is included. Neutrophils Relative 39.1(L) 40.0 - 80.0 % 01/30/2025 8:09 AM EDT [facility] Lymphocytes Relative 43.8 15.0 - 45.0 % 01/30/2025 8:09 AM EDT [facility] Monocytes Relative 14.2(H) 0.0 - 12.0 % 01/30/2025 8:09 AM EDT [facility] Eosinophils Relative 2.2 0.0 - 8.0 % 01/30/2025 8:09 AM EDT [facility] Basophils Relative 0.7 0.0 - 1.0 % 01/30/2025 8:09 AM EDT [facility] nRBC 0 0 - 0 /100 WBC 01/30/2025 8:09 AM EDT [facility] Neutrophils Absolute 782(L) 1,520 - 8,640 /uL 01/30/2025 8:09 AM EDT [facility] Lymphocytes Absolute 876 570 - 4,860 /uL 01/30/2025 8:09 AM EDT [facility] Monocytes Absolute 284 0 - 1,296 /uL 01/30/2025 8:09 AM EDT [facility] Eosinophils Absolute 44 0 - 864 /uL 01/30/2025 8:09 AM EDT [facility] Basophils Absolute 14 0 - 108 /uL 01/30/2025 8:09 AM EDT [facility] Whole Blood 01/30/2025 7:41 AM EDT 01/30/2025 8:01 AM EDT Feliciano Gomez [facility] LAB BLOOD ORDERABLES Final Resu lt [facility] [address] [place] [address], [facility] * (ABNORMAL) Renal Function Panel w/EGFR (01/30/2025 5:51 AM EDT) Only the most recent of3 resultswithin the time period is included. Sodium 139 133 - 146 mmol/L 01/30/2025 7:06 AM EDT [facility] Potassium 3.5 3.5 - 5.3 mmol/L 01/30/2025 7:06 AM EDT [facility] Chloride 105 98 - 110 mmol/L 01/30/2025 7:06 AM EDT [facility] CO2 26 21 - 33 mmol/L 01/30/2025 7:06 AM EDT [facility] Anion Gap 8 3 - 16 mmol/L 01/30/2025 7:06 AM EDT [facility] BUN 29(H) 7 - 25 mg/dL 01/30/2025 7:06 AM EDT [facility] Creatinine 1.14 0.60 - 1.30 mg/dL 01/30/2025 7:06 AM EDT [facility] Glucose 114(H) 70 - 100 mg/dL 01/30/2025 7:06 AM EDT [facility] Calcium 8.7 8.6 - 10.3 mg/dL 01/30/2025 7:06 AM EDT [facility] Phosphorus 5.1(H) 2.1 - 4.7 mg/dL 01/30/2025 7:06 AM EDT [facility] Albumin 4.1 3.5 - 5.7 g/dL 01/30/2025 7:06 AM EDT [facility] Osmolality, Calculated 295 278 - 305 mOsm/kg 01/30/2025 7:06 AM EDT [facility] EGFR 83 01/30/2025 7:06 AM EDT [facility] Comment:As of [...] Hill MD LAB BLOOD ORDERABLES Final Result [facility] [address] * (ABNORMAL) CBC (01/30/2025 5:51 AM EDT) Only the most recent of4 resultswithin the time period is included. WBC 2.1(L) 3.8 - 10.8 10E3/uL 01/30/2025 6:41 AM EDT [facility] RBC 3.41(L) 4.20 - 5.80 10E6/uL 01/30/2025 6:41 AM EDT [facility] Hemoglobin 11.2(L) 13.2 - 17.1 g/dL 01/30/2025 6:41 AM EDT [facility] Hematocrit 31.9(L) 38.5 - 50.0 % 01/30/2025 6:41 AM EDT [facility] MCV 93.7 80.0 - 100.0 fL 01/30/2025 6:41 AM EDT [facility] MCH 32.9 27.0 - 33.0 pg 01/30/2025 6:41 AM EDT [facility] MCHC 35.1 32.0 - 36.0 g/dL 01/30/2025 6:41 AM EDT [facility] RDW 14.8 11.0 - 15.0 % 01/30/2025 6:41 AM EDT [facility] Platelets 95(L) 140 - 400 10E3/uL 01/30/2025 6:41 AM EDT [facility] MPV 6.4(L) 7.5 - 11.5 fL 01/30/2025 6:41 AM EDT [facility] Whole Blood 01/30/2025 5:51 AM EDT 01/30/2025 6:33 AM EDT Carlton Hill MD LAB BLOOD ORDERABLES Final Result [facility] [address] [facility]. [place], [place] [address] * CT Neck With IV [...] cavity, parapharyngeal space, and retropharyngeal space. Normal director of women's services space, infratemporal fossa, and buccal space. Infrahyoid [...] oral cavity, parapharyngeal space, andretropharyngeal space. Normal director of women's services space, infratemporal fossa, andbuccal space. Infrahyoid neck: [...] - 15 mm/hr 01/29/2025 7:03 AM EDT [facility] Whole Blood 01/29/2025 5:55 AM EDT 01/29/2025 6:41 AM EDT us Feliciano Gomez CNP LAB BLOOD ORDERABLES Final Resu lt [facility] [address] * C-Reactive Protein (01/29/2025 5:55 AM EDT) [facility] CRP 4.1 1.0 - 10.0 mg/L 01/29/2025 7:13 AM EDT [facility] Plasma 01/29/2025 5:55 AM EDT 01/29/2025 6:41 AM EDT Feliciano Gomez [facility] LAB BLOOD ORDERABLES Final Resu lt [facility] [address] [facility]. [address] * Giardia Cryptosporidium Antigens (Feces) (01/28/2025 9:27 PM EDT) [facility] Cryptosporidium Ag Negative Negative 2024 8:03 AM EDT [facility] Giardia Ag Negative Negative 01/29/2025 8:03 AM EDT [facility] Comment: Detection of Giardia and Cryptosporidium antigen is more sensitive and specific than microscopy. Because antigens are shed continuously, repeat testing is rarely warranted. Feces 01/28/2025 9:27 PM EDT 01/28/2025 10:07 PM EDT Comment:F Ruby Chiang MD MICROBIOLOGY - GENERAL ORDERAB LES Final Result [facility] [address] [facility]. [address] * Ova and Parasite Comprehensive w/Giardia (Feces) (01/28/2025 9:27 PM EDT) [facility] O & P Method: Concentration and Trichrome Stain [facility] Results No Amoeba, Ova, Or Parasites Seen. -- O and P examination of additional specimens is recommended only for symptomatic patients, immunosuppressed patients or those with an appropriate travel history. [facility] Feces FECES / Unknown 01/28/2025 9 :27 PM EDT 01/28/2025 10:07 PM EDT Comment:F Ruby Chiang MD MICROBIOLOGY - GENERAL ORDERAB LES Final Result Performing Organization Address [facility] Co de Phone Number [facility] [address] * Clostridium Difficile Toxin A/B Antigen (01/28/2025 1:21 PM EDT) CDIFF Tox AGN Negative Negative 01/28/2025 10:35 PM EDT [facility] Comment:C. difficile nucleic acid testing is [...] Final Result Performing Organization Address [facility] Co de Phone Number [facility] [address] * Phosphatidylethanol Confirmation, B (01/28/2025 7:14 AM EDT) Only the most recent of2 resultswithin the time period is included. PETH 16:0/18.1 (POPETH) 394 Cutoff: 10 ng/mL 01/30/2025 9:58 AM EDT [facility] Comment: Phosphatidylethanol (PEth) homologues result interpretation [...] PEth Interpretation Positive. 01/30 9:58 AM EDT [facility] Comment: ADDITIONAL INFORMATION This report is intended for use in clinical monitoring and management of patients. It is not intended for use in employment-related testing. This test was developed and its performance characteristics determined by [facility] in a manner consistent with CLIA requirements. This test has not been cleared or approved by the U.S. Food and Drug Administration. Test Performed by: [facility] [place] [address] Fire Adjuster: Kathy Ortiz Ph.D.; CLIA# [id number] Whole Blood 01/28/2025 7:14 AM EDT 01/30/2025 9:58 AM EDT Carlton Hill MD LAB BLOOD ORDERABLES Final Result [facility] [address] [facility]. [place] [id number], [facility] * CT Head WO [...] 01/28/2025 1:39 AM EDT Shelby Blanco MD [facility] ORDERABLES Final Result * Enteric Pathogen Panel (01/27/2025 9:30 PM EDT) Campylobacter Group (C. ecoli, C. jejuni, C. trino) Not Detected Not Detected 01/28/2025 3:11 AM EDT [facility] Salmonella species Not Detected Not Detected 01/28/2025 3:11 AM EDT [facility] Shigella species Not Detected Not Detected 01/28/2025 3:11 AM EDT [facility] Vibrio Group (Vibrio cholerae, Vibrio parahaemolyticus) Not Detected Not Detected 01/28/2025 3:11 AM EDT [facility] Yersinia enterocolitica Not Detected Not Detected 01/28/2025 3:11 AM EDT [facility] Shiga toxin 1 Not Detected Not Detected 01/28/2025 3:11 AM EDT [facility] Shiga toxin 2 Not Detected Not Detected 01/28/2025 3:11 AM EDT [facility] Norovirus Not Detected Not Detected 01/28/2025 3:11 AM EDT [facility] Rotavirus Not Detected Not Detected 01/28/2025 3:11 AM EDT [facility] Comment: The Enteric Pathogen Panel is [...] HEALTH CARE FACILITY Co de Phone Number [facility] [address] * Respiratory viral panel (01/27/2025 9:30 PM EDT) Pathologist [facility] [place] Adenovirus Not Detected Not Detected 01/28/2025 12:20 AM EDT [facility] Coronavirus (229E,HKU1,NL63,OC 43) Not Detected Not Detected 01/28/2025 12:20 AM EDT [facility] SARS-CoV-2 Not Detected Not Detected 01/28/2025 12:20 AM EDT [facility] Human Metapneumovirus Not Detected Not Detected 01/28/2025 12:20 AM EDT [facility] Human Rhinovirus/Enterov irus Not Detected Not Detected 01/28/2025 12:20 AM EDT [facility] Influenza A Not Detected Not Detected 01/28/2025 12:20 AM EDT [facility] Influenza A H1 Not Detected Not Detected 01/28/2025 12:20 AM EDT [facility] Influenza A/H1-2009 Not Detected Not Detected 01/28/2025 12:20 AM EDT [facility] Influenza A H3 Not Detected Not Detected 01/28/2025 12:20 AM EDT [facility] Influenza B Not Detected Not Detected 01/28/2025 12:20 AM EDT [facility] Parainfluenza 1 Not Detected Not Detected 01/28/2025 12:20 AM EDT [facility] Parainfluenza 2 Not Detected Not Detected 01/28/2025 12:20 AM EDT [facility] Parainfluenza 3 Not Detected Not Detected 01/28/2025 12:20 AM EDT [facility] Parainfluenza 4 Not Detected Not Detected 01/28/2025 12:20 AM EDT [facility] Resp. Syncycial Virus A Not Detected Not Detected 01/28/2025 12:20 AM EDT [facility] Resp. Syncycial Virus B Not Detected Not Detected 01/28/2025 12:20 AM EDT [facility] Chlamydia pneumoniae Not Detected Not Detected 01/28/2025 12:20 AM EDT [facility] Mycoplasma pneumoniae Not Detected Not Detected 01/28/2025 12:20 AM EDT [facility] Comment: The Respiratory Viral-Bacterial Panel is [...] a fact sheet for healthcare providers, see https://www.fda.gov/media/196985/download. For a fact sheet for patients, see https://www.fda.gov/media/872754/download. Nasopharyngeal Swab NASOPHARYNGEAL STRUCTURE / Unknown 01/27/2025 9:30 PM EDT 01/27/2025 10:20 PM EDT Shelby Blanco MD BODY FLUIDS AND STOOLS ORDERABLE S Final Result Performing Organization Address [facility]/ZIP Co de Phone Number [facility] [address] [facility] * Lactic acid, venous, whole blood (01/27/2025 9:30 PM EDT) Pathologist [facility] [place] Lactate, Shakeel 1.4 0.5 - 1.6 mmol/L 01/27/2025 9:42 PM EDT [facility] Blood, Venous 01/27/2025 9:3 0 PM EDT 01/27/2025 9:39 PM EDT Pamela JACOME LAB BLOOD ORDERABLES Final Res ult [facility] [address] [facility] * Histoplasma/Blastomyces Ag, EIA, U (01/27/2025 8:44 PM EDT) [facility] Histoplasma/Blasto myces Ag Result (Urine) Not Detected Not Detected 01/31/2025 11:06 AM EDT [facility] Comment: No antigen from Histoplasma or Blastomyces detected. False negative results may occur depending on extent of disease, and/or site of infection. Repeat testing on a new specimen if clinically indicated. Histoplasma/Blasto myces Ag Value (Urine) Not Detected ng/mL 01/31/2025 11:06 AM EDT [facility] Comment: ADDITIONAL INFORMATION This test was developed and its performance characteristics determined by [facility] in a manner consistent with CLIA requirements. This test has not been cleared or approved by the U.S. Food and Drug Administration. Test Performed by: [facility] [address] [place] [address] Fire Adjuster: Kathy Ortiz Ph.D.; CLIA# [id number] Urine URINE SPECIMEN / Unknown 01/27/2025 8:44 PM EDT 01/31/2025 11:06 AM EDT Shelby Blanco MD URINE ORDERABLES Final Result Performing Organization Address [facility]/ZIP Co de Phone Number [facility] [address] [place] [address] * Strep Pneumo-Legionella Urine Antigen (01/27/2025 8:44 PM EDT) Strept Pneumo Ag Negative Negative 01/27/2025 11:12 PM EDT [facility] Legionella Antigen Negative Negative 01/27/2025 11:12 PM EDT [facility] Urine URINE SPECIMEN / Unknown 01/27/2025 8:44 PM EDT 01/27/2025 10:21 PM EDT Narrative [facility] - 01/27/2025 11:12 PM EDT Positive indicates detection of either Streptococcus pneumoniae antigen or Legionella pneumophila serogroup 1 antigen. Negative results do not rule out pneumococcal infection or infection with L. pneumophila serogroup 1, other serogroups of L. pneumophila, or other Legionella species. Shelby Blanco MD URINE ORDERABLES Final Result Performing Organization Address [facility]/ZIP Co de Phone Number [facility] [address] * (ABNORMAL) Urinalysis, Microscopic (01/27/2025 8:44 PM EDT) RBC, UA <1 0 - 3 /HPF 01/27/2025 9:32 PM EDT [facility] WBC, UA 1 0 - 5 /HPF 01/27/2025 9:32 PM EDT [facility] Hyaline Casts, UA 75(H) 0 - 2 /LPF 01/27/2025 9:32 PM EDT [facility] Mucus, UA Present(A) None Seen /HPF 01/27/2025 9:32 PM EDT [facility] Urine 01/27/2025 8:44 PM EDT 01/27/2025 9:01 PM EDT us Pamela JACOME URINE ORDERABLES Final Result [facility] [address] * (ABNORMAL) Urinalysis-Macroscopic w/Rfx to Microsco (01/27/2025 8:44 PM EDT) Color, UA Yellow Yellow,Straw 01/27/2025 9:32 PM EDT [facility] Clarity, UA Clear Clear 01/27/2025 9:32 PM EDT [facility] Specific Gilbert, UA 1.015 1.005 - 1.035 01/27/2025 9:32 PM EDT [facility] pH, UA 5.5 5.0 - 8.0 01/27/2025 9:32 PM EDT [facility] Protein, UA 30(A) Negative mg/dL 01/27/2025 9:32 PM EDT [facility] Glucose, UA Negative Negative mg/dL 01/27/2025 9:32 PM EDT [facility] Ketones, UA 20(A) Negative mg/dL 01/27/2025 9:32 PM EDT [facility] Bilirubin, UA Negative Negative 01/27/2025 9:32 PM EDT [facility] Blood, UA Negative Negative 01/27/2025 9:32 PM EDT [facility] Nitrite, UA Negative Negative 01/27/2025 9:32 PM EDT [facility] Urobilinogen, UA <2.0 0.2 - 1.9 mg/dL 01/27/2025 9:32 PM EDT [facility] Leukocyte Esterase, UA Negative Negative 01/27/2025 9:32 PM EDT [facility] Urine 01/27/2025 8:44 PM EDT 01/27/2025 8:53 PM EDT Pamela JACOME URINE ORDERABLES Final Result Performing Organization Address City/State/[facility] Co de Phone Number [facility] [address] [place] [address], [facility] * Histoplasma/Blastomyces Ag, EIA, S (01/27/2025 8:20 PM EDT) Histoplasma/Blasto myces Ag Result (Serum) Not Detected Not Detected 01/30/2025 12:49 PM EDT [facility] Comment: No antigen from Histoplasma or Blastomyces detected. False negative results may occur depending on extent of disease, and/or site of infection. Repeat testing on a new specimen if clinically indicated. Histoplasma/Blasto myces Ag Value (Serum) Not Detected ng/mL 01/30/2025 12:49 PM EDT [facility] Comment: ADDITIONAL INFORMATION This test was developed and its performance characteristics determined by [facility] in a manner consistent with CLIA requirements. This test has not been cleared or approved by the U.S. Food and Drug Administration. Test Performed by: [facility] - [address] [address] Fire Adjuster: Kathy Ortiz Ph.D.; CLIA# [id number] Serum SERUM SPECIMEN / Unknown 01/27/2025 8:20 PM EDT 01/30/2025 12:49 PM EDT Comment:S Shelby Blanco MD LAB BLOOD ORDERABLES Final Resul t [facility] [address] [place] [address], [facility] * Fungitell (01/27/2025 8:20 PM EDT) Fungitell Value <31.25 pg/mL 4:19 PM EDT [facility] Reference Value Comment 4:19 PM EDT [facility] Comment:Negative: <60, Posit bradley: >/=60 Clinical Relevance Notes 2024 4:19 PM EDT [facility] Comment: The Fungitell test is indicated [...] Cryptococcus, which produce very low levels of (1,3)-sibh-U-ernzck. This test will not detect the zygomycetes, such as Absidia, Blastomyces, Mucor, and Rhizopus, which are not known to produce (1,3)-tlxj-U-jjpjmr. In addition, the yeast phase of Blastomyces dermatitidis produces little (1,3)-xlww-Q-dwfgrk and may not be detected by the assay. Disclaimer: Notes 02/02/2025 4:19 PM EDT [facility] Comment: This test has been cleared or approved for diagnostic use by the U.S. Food and Drug Administration. Performance characteristics were verified by [employer]. Electronically signed by: Comment 02/02/2025 4:19 PM EDT [facility] Comment:Usha Landin Fungitell Result Comment 02/03/20 4:19 PM EDT [facility] Comment:Negative Interpretation Notes 02/02/2025 4:19 PM EDT [facility] Comment: (1,3) Yvhc-Y-Xzkcgi was NOT DETECTED in the sample. Reasons for negative results could include the patient being in the early stage of infection before detectable levels of (1,3) Ergd-D-Gwjzwv are present. Clinical diagnosis should be made in the context of the patient's complete medical history. Serum 01/27/2025 8:20 PM EDT 02/02/2025 5:07 PM EDT Narrative [facility] - 02/02/2025 5:07 PM EDT PERFORMED AT: [employer] [address] [place] [address] [phone] PIN TICKET MACHINE OPERATOR: Cyril Porter, PhD PHONE: [phone] Shelby Blanco MD LAB BLOOD ORDERABLES Final Resul t Performing Organization Address City/[facility] Co de Phone Number [facility] [address] [facility]. [address] * Cryptococcus Ag (01/27/2025 8:20 PM EDT) Pathologist [facility] [place] Crypto Ag, Ser Negative Negative 01/27/2025 11:41 PM EDT [facility] Crypto Ag Titer, Ser Not Applicable 01/27/2025 11:41 PM EDT [facility] Serum SERUM SPECIMEN / Unknown 01/27/2025 8:20 PM EDT 01/27/2025 10:04 PM EDT Comment:S Shelby Blanco MD LAB BLOOD ORDERABLES Final Resul t Performing Organization Address [facility] Co de Phone Number [facility] [address] [facility]. [address] * BK PCR, Blood (Renal Txp and BMT only) (01/27/2025 8:20 PM EDT) BKV IU DNA Quant, Blood Not Detected IU/mL 01/29/2025 1:48 PM EDT [facility] Comment: Beginning August 23, 2021, [facility] has transitioned BK viral load testing from [...] log 10 IU/mL 01/29/2025 1:48 PM EDT [facility] Comment:BKV DNA Not Detected Plasma 01/27/2025 8:20 PM EDT 01/27/2025 9:49 PM EDT Shelby Blanco MD LAB BLOOD ORDERABLES Final Resul t [facility] [address] [place] [address], [facility] * Katie-Schafer Virus (EBV) PCR (01/27/2025 8:20 PM EDT) EBV DNA, Quantitative PCR Not Detected IU/mL 01/28/2025 10:54 AM EDT [facility] EBV DNA, Log10 See Note log 10 IU/mL 01/28/2025 10:54 AM EDT [facility] Comment: Beginning September 05, 2022, [facility] has transitioned EBV viral load testing to [...] ORDERABLES Final Resul t Performing Organization Address [facility]/ZIP Co de Phone Number [facility] [address] * Adenovirus PCR (01/27/2025 8:20 PM EDT) Adenovirus, Quantitative PCR 0 0 - 0 copies/mL 02/03/2025 1:12 PM EDT [facility] Comment: Testing performed by [facility], [address] [place] [address], [place], [place]. This test(s) was developed and its performance characteristics determined and validated by the Department of Pathology and Laboratory Medicine at [facility]. It has not been cleared or [...] ORDERABLES Final Resul t Performing Organization Address [facility] Co de Phone Number [facility] [address] * Aspergillus Ag (01/27/2025 8:20 PM EDT) Pathologist [facility] [place] Aspergillus Ag. 0.03 0.00 - 0.49 Index 01/30/2025 5:54 PM EDT [facility] Serum SERUM SPECIMEN / Unknown 01/27/2025 8:20 PM EDT 01/31/2025 4:23 AM EDT Comment:S Shelby Blanco MD BODY FLUIDS AND STOOLS ORDERABLE S Final Result Performing Organization Address City/[facility]/ZIP Co de Phone Number [facility] [address] [place] [address]. [address] * Blood culture-Peripheral (Blood) (01/27/2025 8:20 PM EDT) Only the most recent of2 resultswithin the time period is included. Culture Result No Growth After 5 Days [facility] Blood BLOOD SPECIMEN / Unknown 01/27/2025 8:20 PM EDT 01/27/2025 9:57 PM EDT us Pamela JACOME MICROBIOLOGY - GENERAL ORDERAB LES Final Result [facility] [address] [place] [address]. [address] * Blood Culture, Acid Fast (Blood) (01/27/2025 8:20 PM EDT) Culture Result Culture Negative For Mycobacteria At 6 Weeks [facility] Blood SERUM SPECIMEN / Unknown 01/27/2025 8:20 PM EDT 01/27/2025 9:50 PM EDT Comment:S Shelby Blanco MD MICROBIOLOGY - GENERAL ORDERABLE S Final Result Performing Organization Address City/[facility]/ZIP Co de Phone Number [facility] [address] [place] [address]. [address] * Fungus culture, blood (Blood) (01/27/2025 8:20 PM EDT) Culture Result No Fungus Isolated At 4 Weeks [facility] Blood SERUM SPECIMEN / Unknown 01/27/2025 8:20 PM EDT 01/27/2025 9:50 PM EDT Comment:S Shelby Blanco MD MICROBIOLOGY - GENERAL ORDERABLE S Final Result Performing Organization Address City/[facility]/ZIP Co de Phone Number [facility] [address] [place] [address]. [address] * (ABNORMAL) Lipase (01/27/2025 8:20 PM EDT) Lipase 3(L) 4 - 82 U/L 01/27/2025 9:0 3 PM EDT [facility] Plasma 01/27/2025 8:20 PM EDT 01/27/2025 8:34 PM EDT Pamela Wiggins PA LAB BLOOD ORDERABLES Final Res ult [facility] [address] [facility]. [address] * Hemoglobin A1c (01/27/2025 8:20 PM EDT) Hemoglobin A1C 4.0 4.0 - 5.6 % 01/27/2025 11:49 PM EDT [facility] Comment: Hemoglobin [...] PM EDT 01/27/2025 8:57 PM EDT Narrative [facility] - 01/27/2025 11:49 PM EDT A1C project?->Yes Pamela Pattersonzina PA LAB BLOOD ORDERABLES Final Res ult [facility] [address] [facility]. [address] * Basic metabolic panel (01/27/2025 8:20 PM EDT) Sodium 136 133 - 146 mmol/L 01/27/2025 9:03 PM EDT [facility] Potassium 4.0 3.5 - 5.3 mmol/L 01/27/2025 9:03 PM EDT [facility] Chloride 100 98 - 110 mmol/L 01/27/2025 9:03 PM EDT [facility] CO2 25 21 - 33 mmol/L 01/27/2025 9:03 PM EDT [facility] Anion Gap 11 3 - 16 mmol/L 01/27/2025 9:03 PM EDT [facility] BUN 16 7 - 25 mg/dL 01/27/2025 9:03 PM EDT [facility] Creatinine 1.02 0.60 - 1.30 mg/dL 01/27/2025 9:03 PM EDT [facility] Glucose 93 70 - 100 mg/dL 01/27/2025 9:03 PM EDT [facility] Calcium 9.7 8.6 - 10.3 mg/dL 01/27/2025 9:03 PM EDT [facility] Osmolality, Calculated 283 278 - 305 mOsm/kg 01/27/2025 9:03 PM EDT [facility] EGFR >90 01/27/2025 9:03 PM EDT [facility] Comment: As of 2021, the estimated [...] JACOME LAB BLOOD ORDERABLES Final Res ult [facility] [address] [place] [address], [facility] * X-ray Chest PA [...] Not Detected copies/mL 11/26/2024 10:57 AM EDT [facility] Comment:Test methodology for HIV-1 RNA quantification is an FDA-approved nucleic acid amplification assay. The Lower Limit of Quantitation (LLoQ) is 20 copies/mL. The linear range is 20- to 10,000,000 copies/mL. The Limit of Detection (LoD) is 13.2 copies/mL. The reference range is Not Detected. HIV [id number] See Note [id number] /mL 11/26/2024 10:57 AM EDT [facility] Comment:HIV-1 RNA not detect ed. Plasma 11/25/2024 8:42 AM EDT 11/25/2024 10:59 AM EDT [facility] - 11/26/2024 10:57 AM EDT One time lab order to be collected with next set of standing liver transplant labs. UNOS requirement. Please fax all results to [phone]. Call critical results to [phone]. us Harvey Domínguez III, MD LAB BLOOD ORDERABLE S Final Result Performing Organization Address [facility]/ZIP Co de Phone Number [facility] [address] [facility] * Hepatitis C Antibody (10/25/2024 10:17 PM EDT) HCV Ab Nonreactive Nonreactive 10/25/2024 11:16 PM EDT [facility] Comment:Health Department no tified in accordance with reportable infectious disease guidelines. Serum 10/25/2024 10:1 7 PM EDT 10/25/2024 10:17 PM EDT [facility] - 10/25/2024 11:16 PM EDT Antibodies to HCV not detected; does not exclude the possibility of exposure to HCV. us Aysha Gill MD LAB BLOOD ORDERABLES F inal Result Performing Organization Address City/[facility]/ZIP Co de Phone Number [facility] [address] * TSH (Thyroid Stimulating Hormone) (10/07/2024 6:37 PM EDT) TSH 0.81 0.45 - 4.12 uIU/mL 10/07/2024 8:17 PM EDT [facility] Serum 10/07/2024 6:37 PM EDT 10/07/2024 6:50 PM EDT us Gerri Peterson MD LAB BLOOD ORDERABLES Final Resu lt [facility] [address] [place] [id number], [facility] from Last 3 Months or Most Recently Relevant to Health Maintenance Additional Health Concerns Infection Onset Date Last Indicated C. difficile 01/28/2025 01/28/2025 Insurance [facility] [employer] Member Subscriber Plan / Payer (Ef fective 2015-Present) Name:Julien Anderson Relation to Subscriber:Self Name:Julien Anderson Payer ID:[id number] (NAIC) Type:Not on file Address: [address] [facility] [employer]BAL Member Subscriber Plan / Payer (Ef fective 2024-2025) Name:Julien Anderson Relation to Subscriber:Self Name:Julien Anderson Payer ID:[id number] Group ID:Not on file Type:Transplant Address: [address] [place] [address] Advance Directives For more information, please contact: [phone] * Full Code (Latest Code Status on [...] 9:42 AM 09/09/2024 10:30 PM Care Teams Senior Ux Designer Relationship Specialty Start Date End Date Enedina Mcguire NP [address] [place] [address] PCP - General Internal Medicine 10/05/24 Maureen Pantoja, ЮЛИЯ Txp Post Coordinator Transplant Hepatology 10/28/24 Chris Orosco MD [facility] [address] [place] [address] Consulting Physician Transplant Hepatology 02/26/25
--- OUTSIDE RECORDS SUMMARY | 2025-04-15 16:19 | XMS_ITS | Encounter Summary ---
Author Organization [facility] Address [address] [place] [address] Care Team Providers Care Water Restoration Technician Name Role Phone Enedina Mcguire NP Primary Care Provider [phone] Maureen Pantoja RN Unavailable Unavail able Source [...] release of HIV test results or diagnoses. [id number] Reason for Visit * Reason Comments Results Encounter Details Date Type Department Care Team (Riky mcdaniel Contact Info) Description 02/13/2025 Telephone [facility] Liver Transplant at [address] [address] Marisela Martinez MA Results Social History Tobacco Use Types Packs/Day Years Used Date Smoking Tobacco: Former Cigarettes Smokeless Tobacco: Current Alcohol Use Standard Drinks/Week Comments Yes 0 (1 standard drink = 0.6 oz pure alcohol) History of alcohol abuse, reports no use in 3 week- typically endorses use as 4 glasses of wine a days [facility] Utilities Answer Date Recorded In [...] after discussionwith transplant ID and transplant nephrology. [employer] message sent to patient. * Mariola Quintana RN - 02/13/2025 9:09 AM EDT Covering RN Coordinator aware. Will route to Txp Provider for further review and recommendations. * Marisela Martinez MA - 02/13/2025 8:38 AM EDT Ashley from [facility] outpt lab called to report a [...] as of this encounter Care Teams Water Restoration Technician Relationship Specialty Start Date End Date Enedina Mcguire NP [address] [place] [address] PCP - General Internal Medicine 10/05/24 Maureen Pantoja, ЮЛИЯ Txp Post Coordinator Transplant Hepatology 10/28/24 documented as of this encounter
--- OUTSIDE RECORDS SUMMARY | 2025-04-15 16:19 | XMS_ITS | Encounter Summary ---
Author Organization [facility] Address [address] [place] [address] Care Team Providers Care Creative Services Director Name Role Phone Enedina Mcguire NP Primary Care Provider + [phone] Maureen Pantoja RN Unavailable Unavail able Source [...] release of HIV test results or diagnoses. [id number] Health Encounter Details Date Type Department Care Team (Late st Contact Info) Description 02/17/2025 Telephone [facility] Liver Transplant at [address] [address] Marlene Ro MA Social History Tobacco Use Types Packs/Day Years Used Date Smoking Tobacco: Former Cigarettes Smokeless Tobacco: Current Alcohol Use Standard Drinks/Week Comments Yes 0 (1 standard drink = 0.6 oz pure alcohol) History of alcohol abuse, reports no use in 3 week- typically endorses use as 4 glasses of wine a days [facility] Utilities Answer Date Recorded In the past 12 months has [employer], gas, oil, or water [address] threatened to shut off services in your [...] of this encounter Care Teams Creative Services Director Relationship Specialty Start Date End Date Eneidna Mcguire NP [address] [place] [address] PCP - General Internal Medicine 10/05/24 Maureen Pantoja, ЮЛИЯ Txp Post Coordinator Transplant Hepatology 10/28/24 documented as of this encounter
[2025-04-15 17:23] LABS: Albumin Level 5.1 g/dl (3.5-5.0); Anion Gap 19.1 mEq/L (5-15); Blood Urea Nitrogen 10 mg/dl (9-20); Calcium 10.0 mg/dl (8.4-10.2); Carbon Dioxide 18 mmol/L (22.0-30.0); Chloride 100 mmol/L (98-107); Creatinine,Serum 1.40 mg/dl (0.66-1.25); Estimated Glomerular Filt Rate 56 ml/min (>60); GFR (African American) 68 ML/MIN (>60); Glucose 109 mg/dl (74-100); Phosphorous 3.4 mg/dl (2.5-4.5); Potassium 4.1 mmoL/L (3.5-5.1); Sodium 133 mmol/L (136-145)
== END 2025-04-15 23:59 | disposition home or self-care (01) ==
LOC: LAB 16:15
PROVIDERS: PCP Nurse Practitioner Family; Visit Provider Surgery
DX: K74.60 Unspecified cirrhosis of liver (principal); R18.8 Other ascites; Z79.60 Long term (current) use of unspecified immunomodulators and immunosuppressants; Z94.4 Liver transplant status
CPT/HCPCS: 36415; 80069

== ENCOUNTER 2025-04-22 09:54 | Outpatient (CLI) | payer OTHER, SELFPAY ==
[2025-04-22 10:02] LABS: Microscopic, Urine URINE MICROSCOPIC (MICROSCOPIC)
[2025-04-22 10:17] LABS: Hematocrit 41.1 % (42.0-52.0); Hemoglobin 14.5 g/dL (14.1-18.0); Immature Granulocytes % 0.5 %; Mean Corpuscular HGB Conc 35.3 g/dL (31.8-35.4); Mean Corpuscular Hemoglobin 33.6 pg (27.0-31.2); Mean Corpuscular Volume 95.4 fl (80-94); Nucleated Red Blood Cells % 0 %; Platelet Count 148 K/mm3 (142-424); Red Blood Count 4.31 M/mm3 (4.60-6.20); Red Cell Distribution Width-SD 46.7 fL; White Blood Count 7.4 K/mm3 (4.8-10.8)
[2025-04-22 11:29] LABS: Alanine Aminotransferase 51 U/L (12-78); Albumin Level 4.7 g/dl (3.5-5.0); Alkaline Phosphatase 66 U/L (38-126); Anion Gap 19.0 mEq/L (5-15); Aspartate Amino Transferase 54 U/L (17-59); Bilirubin,Direct 0.1 mg/dl (0.0-0.4); Bilirubin,Indirect 0.7 mg/dL (0.0-0.9); Bilirubin,Total 0.8 mg/dl (0.2-1.3); Bilirubin,Unconjugated 0.7 mg/dL (0.0-1.1); Blood Urea Nitrogen 14 mg/dl (9-20); Calcium 9.1 mg/dl (8.4-10.2); Carbon Dioxide 22 mmol/L (22.0-30.0); Chloride 104 mmol/L (98-107); Creatinine,Serum 1.60 mg/dl (0.66-1.25); Estimated Glomerular Filt Rate 48 ml/min (>60); GFR (African American) 58 ML/MIN (>60); Glucose 101 mg/dl (74-100); Magnesium 1.1 mg/dl (1.6-2.3); Phosphorous 4.0 mg/dl (2.5-4.5); Potassium 4.0 mmoL/L (3.5-5.1); Sodium 141 mmol/L (136-145); Total Protein,Serum 6.9 g/dl (6.3-8.2)
[2025-04-22 18:55] LABS: Bilirubin,Urine Negative (Negative); Color,Urine YELLOW (Yellow); Glucose,Urine (UA) Negative (Negative); Ketones,Urine Negative (Negative); Leukocyte Esterase,Urine Negative (Negative); PH,Urine 6.0 (5.0-8.5); Protein,Urine Negative (Negative); Specific Gravity, Urine 1.020 (1.005-1.030); Urobilinogen,Urine 0.2 EU/dl (0.2)
[2025-04-22 20:23] LABS: Bacteria,Urine Trace /lpf; Squamous Epithelial Cell,Urine Occasional #/hpf (0-5)
[2025-04-25 18:46] LABS: Tacrolimus (FK506), Blood 12.7 ng/mL (5.0-20.0)
== END 2025-04-22 23:59 | disposition home or self-care (01) ==
PROVIDERS: PCP Nurse Practitioner Family; Visit Provider Surgery
DX: D84.9 Immunodeficiency, unspecified (principal); F10.90 Alcohol use, unspecified, uncomplicated; Z94.0 Kidney transplant status; Z94.4 Liver transplant status; Z79.60 Long term (current) use of unspecified immunomodulators and immunosuppressants
CPT/HCPCS: 36415; 80069; 80076; 80197; 80321; 81001; 82570; 83735; 84156; 85025; 87086; 87088; 87186

== ENCOUNTER 2025-04-29 09:24 | Outpatient (CLI) | payer OTHER, SELFPAY ==
--- OUTSIDE RECORDS SUMMARY | 2025-02-19 06:45 | XMS_ITS | Encounter Summary ---
Author Organization [facility] Address [address] [place] [address] Care Team Providers Care Homemaking Rehabilitation Consultant Name Role Phone Enedina Mcguire APRN Primary Care Provider + Reason for Visit * Surgical (Routine) - Closed Specialty Diagnoses / Procedures Referred By Contac t Referred To Contact Pain Medicine Diagnoses Cervical radiculopathy Procedures External Facility Surgical/Procedural Request Tye Song MD [address] [place] [address] Phone: tel: fax: [facility] AT [address] [address] Phone: tel: fax: Referral ID Status Reason Start Date Expiration Date V isits Requested Visits Authorized [id number] Closed Other 01/08/2025 04/09/2026 1 1 Encounter Details Date Type Department Care Team (Late st Contact Info) Description 02/19/2025 7:45 AM EDT Outside Facility Service [facility] PAIN MANAGEMENT [address] [place] [phone] Tye Song MD [address] [place] [address] Social History Tobacco Use Types Packs/Day Years Used Date Smoking Tobacco: Former Cigarettes 4 20 Passive Smoke Exposure: Past Smokeless Tobacco: Current Comments:MARIJUANA USE ABOUT 2X PER WEEK - reports no use 08-05-2024 Alcohol Use Standard Drinks/Week Comments Not Currently 0 (1 standard drink = 0.6 oz pure alcohol) 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 [facility] Utilities Answer Date Recorded In the past [...] Description 05/18/2025 2:30 PM EST Office Visit [facility] INTERNAL MEDICINE [address] [place] [address] Enedina Mcguire, WAREHOUSE ASSOCIATE DRIVER [address] [place] [address] 05/21/2025 12:30 PM EST Office Visit [facility] PAIN MANAGEMENT [address] [facility] [address] [place] [address] Vazquez Christie PA-C [address] [facility] [address] [place] [address] documented as of this encounter Visit Diagnoses Not on filedocumented in this encounter Additional Health Concerns Assessment Noted Time PHQ-2 Depression Total Score: 1 12/31/19 24 3:25 PM EDT documented as of this encounter Care Teams Homemaking Rehabilitation Consultant Relationship Specialty Start Date End Date Enedina Mcguire APRN [address] [place] [address] PCP - General Nurse Practitioner 10/27/24 documented as of this encounter
--- OUTSIDE RECORDS SUMMARY | 2025-03-03 12:45 | XMS_ITS | Encounter Summary ---
Author Organization [facility] Address [address] [place] [phone] Care Team Providers Care Finishing Range Supervisor Name Role Phone Enedina Mcguire APRN Primary Care Provider + Reason for Referral * Surgical (Routine) - Closed Specialty Diagnoses / Procedures Referred By Shane t Referred To Contact Diagnoses Occipital neuralgia of right side Procedures External Facility Surgical/Procedural Request Vazquez Christie PA-C [address] [place] [address] Phone: tel: fax: [facility] AT [address] [place] [address] Phone: tel: fax: Referral ID Status Reason Start Date Expiration Date V isits Requested Visits Authorized [id number] Closed Continuity of Care 03/03/2025 06/02/2026 1 1 Reason for Visit * Reason Comments Follow-up Neck Pain Encounter Details Date Type Department Care Team (Late st Contact Info) Description 03/03/2025 1:45 PM EDT Office Visit [facility] PAIN MANAGEMENT [address] [place] [address] [address] [place] [phone] Vazquez Christie PA-C [address] [place] [address] Occipital neuralgia of right side (Primary Dx); [...] sober on 08-05-2024 [facility] trivagoities Answer Date Recorded In the past 12 months has [employer], gas, oil, or water [employer] threatened to shut off services in [...] [facility] Occupat ional Health - Occupational [...] GED or equivalent No 07/09/2024 Preferred Language Slovak 07/09/2024 PHQ-2 Answer Date Recorded Patient Health [...] EDT Referring Physician: Enedina Mcguire APRN [address] [place] [address] Primary Physician: Enedina Mcguire APRN CHIEF COMPLAINT [...] Surgeon: Presley Montes De Oca MD; Location: [facility]; Service: Gastroenterology; Laterality: N/A; ENDOSCOPY N/A 07/29/2022 Procedure: ESOPHAGOGASTRODUODENOSCOPY; Surgeon: Presley Montes De Oca MD; Location: [facility]; Service: Gastroenterology; Laterality: N/A; WITH APC [...] Problems Brother Alcohol abuse Maternal Grandfather Elton Pacsal Stroke Maternal Grandmother Sudha Tenorio Liver cancer [...] Rfl: 0 vitamin D (ERGOCALCIFEROL) 1.25 MG (35923 UT) capsule capsule, Take 1 capsule by [...] steroid 8. Referrals: None indicated 9. Records: [facility] reviewed; [facility] notes reviewed 10. Lifestyle goals: Follow-up 2 months [facility] Pain Management Vazquez Christie PA-C documented in this encounter Plan of Treatment Upcoming Encounters Date Type Department Care Team (Late st Contact Info) Description 05/18/2025 2:30 PM EST Office Visit [facility] INTERNAL MEDICINE [address] [place] [address] Enedina Mcguire, RAMBO [address] [place] [address] [phone] 05/21/2025 12:30 PM EST Office Visit [facility] PAIN MANAGEMENT [address] [address] Vazquez Christie PA-C [address] [place] [phone] Scheduled Orders Name Type Priority Associated Diagnoses [...] documented as of this encounter Care Teams Finishing Range Supervisor Relationship Specialty Start Date End Date Enedina Mcguire APRN [address] [place] [address] PCP - General Nurse Practitioner 10/27/24 documented as of this encounter
--- OUTSIDE RECORDS SUMMARY | 2025-03-19 11:30 | XMS_ITS | Encounter Summary ---
Author Organization [facility] Address [address] [place] [id number] Care Team Providers Care Lamp Tester And Inspector Name Role Phone Enedina Mcguire APRN Primary Care Provider + Reason for Visit * Surgical (Routine) - Closed Specialty Diagnoses / Procedures Referred By Shane t Referred To Contact Diagnoses Occipital neuralgia of right side Procedures External Facility Surgical/Procedural Request Vazquez Christie PA-C 1760 [facility] 302 [place] [address] Phone: tel: fax: [facility] AT [address] [place] [address] Phone: tel: fax: Referral ID Status Reason Start Date Expiration Date V isits Requested Visits Authorized [id number] Closed Continuity of Care 03/03/2025 06/02/2026 1 1 Encounter Details Date Type Department Care Team (Late st Contact Info) Description 03/19/2025 11:30 AM EST Outside Facility Service [facility] PAIN MANAGEMENT 1760 [place] [address] Tye Song MD 1760 [place] [address] Social History Tobacco Use Types Packs/Day Years Used Date Smoking Tobacco: Former Cigarettes 4 20 Passive Smoke Exposure: Past Smokeless Tobacco: Current Comments:MARIJUANA USE ABOUT 2X PER WEEK - reports no use 08-05-2024 Alcohol Use Standard Drinks/Week Comments Not Currently 0 (1 standard drink = 0.6 oz pure alcohol) 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 [facility] Utilities Answer Date Recorded In [...] Brief Depression Severity Measure Score 0 10/02/2022 [facility] of Occupat ional Health [...] Description 05/18/2025 2:30 PM EST Office Visit [facility] INTERNAL MEDICINE [address] [place] [address] Enedina Mcguire, SERVICE OPERATIONS MANAGER 3[address] [place] [address] 05/21/2025 12:30 PM EST Office Visit [facility] PAIN [facility] 3000 [facility] 330 [place] [address] Vazquez Christie PA-C 1760 [facility] [address] [place] [address] documented as of this encounter Visit Diagnoses Not on filedocumented in this encounter Additional Health Concerns Assessment Noted Time PHQ-2 Depression Total Score: 1 12/31/19 24 3:25 PM EDT documented as of this encounter Care Teams Lamp Tester And Inspector Relationship Specialty Start Date End Date Enedina Mcguire APRN [address] [place] [address] PCP - General Nurse Practitioner 10/27/24 documented as of this encounter
--- OUTSIDE RECORDS SUMMARY | 2025-04-16 09:50 | XMS_ITS | Encounter Summary ---
Author Organization [facility] Address [facility] [place] [address] Care Team Providers Care Cloth Bleaching Range Back Tender Name Role Phone Enedina Mcguire NP Primary Care Provider + [phone] Maureen Pantoja RN Unavailable Unavail able Chris Orosco MD Unavailable [phone] Source Comments This information has been disclosed [...] release of HIV test results or diagnoses. [id number] Health Reason for Referral * Physician/SAWYER (Routine) - Pending Review Specialty Diagnoses / Procedures Referred By Contac t Referred To Contact Psychology Diagnoses Kidney transplant recipient Liver transplant recipient ([facility]) Encounter for monitoring tacrolimus therapy Immunosuppressive management encounter following liver transplant ([facility]) Alcohol use disorder, severe, dependence ([facility]) Chris Orosco MD [address] [place] [address] Phone: tel: fax: Referral ID Status Reason Start Date Expiration Date V isits Requested Visits Authorized [id number] Pending Review 04/16/2025 10/13/2025 1 1 Reason for Visit * Reason Comments Liver Transplant Follow-up Encounter Details Date Type Department Care Team (Late st Contact Info) Description 04/16/2025 9:50 AM EST Office Visit [facility] Liver Transplant at [facility] [address] [facility] [address] [place] [address] Chris Orosco MD [address] [place] [address] Liver transplant recipient ([facility]) (Primary Dx); Kidney transplant recipient; Encounter for monitoring tacrolimus therapy; Immunosuppressive management encounter following liver transplant ([facility]); Alcohol use disorder, severe, dependence ([facility]); Encounter for therapeutic drug monitoring; S/P liver transplant ([facility]); Hypomagnesemia; Hypertension, unspecified type; Gastroesophageal reflux [...] as 4 glasses of wine a days [employer] Answer Date Recorded In the past 12 months has [employer], gas, oil, or water [employer] threatened to shut off services in [...] Sign Reading Time Taken Comments Blood Pressure 146/98 04/16/2025 9:46 AM EST Pulse 109 04/16/2025 9:46 AM EST Temperature 36.4 C (97.6 F) 04/16/2025 9:46 AM EST Respiratory Rate 16 04/16/2025 9:46 AM EST Oxygen Saturation 100% 04/16/2025 9:46 AM EST Inhaled Oxygen Concentration 100% 04/16/2025 9 :46 AM EST Weight 116.3 kg (256 lb 4.8 oz) 04/16/2025 9:46 AM EST Height 193 cm (6' 4 ) 04/16/2025 9:46 AM EST Body Mass Index 31.2 04/16/2025 9:46 AM EST documented in this encounter Patient Instructions * Patient Instructions* Chris Orosco MD - 04/16/2025 9:50 AM EST Stop prednisone Increase Cellcept to 500mg twice a day Decrease tacrolimus 4mg AM and 4mg PM Start topiramate 50 mg once daily Schedule appointment at your local hospital for alcohol counseling Labs next week Avoid NSAID medications (ibuprofen, naproxen, Aleve, Motrin, Advil) Avoid direct sun exposure Use hat, sun protective clothing, SPF 30 sunscreen Annual Dermatology skin exam due to increased risk of skin cancer with immunosuppression medications Please follow regularly with your primary care provider for all recommended preventative care and immunizations including annual flu shot RTC in 1 - 2 months documented in this encounter Progress Notes * Chris Orosco MD - 04/16/2025 9:50 AM EST Transplant Hepatology Follow Up HPI: This is [...] fibrosis on trichrome. - Patchy foamy degeneration. Hospitalized 01/27 - 01/30/2025 for diarrhea, neck [...] reported that GI symptoms improving off Cellcept Current immunosuppression: tacrolimus 5 mg twice daily, prednisone 5 mg daily, and Cellcept 250 mg twice daily Interval History 04/16/2025 Patient states he is doing well. Admits he is still drinking; drinks 5-6 drinks per week. Only wine, no binging episodes. At most 2-3 drinks a sitting. Not taking naltrexone because he states it makes him feel weird . Tried acamprosate previously and did not work. Stopped since virtual counseling for alcohol cessation a few weeks ago because states it was not helping. Willing to see someone in person closer to his home. No signs/symptoms of hepatic decompensation. He was worried about his sCr being elevated so went to [facility] [place] yesterday to have rechecked and went down to 1.4 from 1.8. Positive PEth on 11/25/24, 01/27/25, 04/03/25. Wt Readings from Last 3 Encounters: 04/16/25 (!) 256 lb 4.8 oz (116.3 kg) 02/25/25 (!) 242 lb (109.8 kg) 02/12/25 (!) 237 lb (107.5 kg) 04/14/2025 labs reviewed: elevated AST 50 and 40, creatinine rising to 1.8, and stable CBC 04/03/25 tacro trough 20.8 (has been elevated 14-20 last few times checked in 03/2025) ROS: Gen: no fatigue, no malaise, no [...] Manic Medications: Current Outpatient Medications Medication Sig cyclobenzaprine Take 1 tablet (5 mg total) by mouth 3 times a day. ergocalciferol Take 1 capsule (50,000 Units total) by mouth once a week. famotidine Take 1 tablet by mouth twice daily FLUoxetine Take 1 capsule (20 mg total) by mouth daily. gabapentin Take 1 capsule (300 mg total) by mouth 3 times a day. Work on decreasing to one capsule daily. Indications: Neuropathic Pain, alcoholism levothyroxine Take 1 tablet (75 mcg total) by mouth every morning before breakfast. loratadine Take 1 tablet (10 mg total) by mouth daily as needed for Allergies (itching). Slow-Mag Take 2 tablets (143 mg total) by mouth 3 times a day. Patient purchases OTC. Patient reporting some days only taking BID. methocarbamoL Take 2 tablets (1,000 mg total) by mouth 3 times a day. mycophenolate Take 2 capsules (500 mg total) by mouth 2 times a day. tacrolimus Take 4 capsules (4 mg total) by mouth 2 times a day. Indications: Prevention of Kidney Transplant Rejection, Prevention of Liver Transplant Rejection NIFEdipine Take 1 tablet by mouth once daily testosterone cypionate Inject into the muscle. topiramate Take 1 tablet (50 mg total) by mouth daily. Indications: alcoholism No current facility-administered medications for this visit. Physical Examination: Vitals: 04/16/25 0946 BP: (!) 146/98 BP Location: Right upper arm Patient Position: Sitting BP Cuff Size: Large Pulse: 109 Resp: 16 Temp: 97.6 ??F (36.4 ??C) TempSrc: Oral SpO2: 100% Weight: (!) 256 lb 4.8 oz (116.3 kg) Height: 6' 4 (1.93 m) General: [...] Labs: Lab name 12/23/24 0953 12/31/24 0941 04/14/25 1305 HEMOGLOBIN 11.3* < > 14.5 HEMATOCRIT 33.3* < > 41.9 MEAN CORPUSCULAR VOLUME 93.5 < > 96.5 PLATELETS 133 < > 155 SODIUM 138 < > 142 POTASSIUM 4.2 < > 4.0 CHLORIDE 105 < > 101 CO2 27* < > 26* BUN 19 < > 14 CREATININE 0.80 < > 1.80 GLUCOSE 88 < > 101 PHOSPHORUS 5.2* < > 4.7 ALBUMIN 4.4 < > 4.5 ALBUMINKID -- < > -- CALCIUM 9.2 < > 10.0 AST 20 < > 50 ALT 14 < > 40 BILIRUBIN TOTAL 0.5 < > 0.5 ALK PHOS 73 < > 62 INR 0.94 -- -- < > = values in this interval not displayed. Lab name 03/10/25 0929 03/20/25 0715 03/27/25 1052 04/03/25 1204 TACROLIMUS BLOOD 14.5 14.0 18.2* 20.8* I personally reviewed 10/31/2024 CT abdomen and [...] function: stable with normal liver tests on 04/14/25. History of post-LT alcohol relapsein 01/2025. - switch naltrexone to Topamax 50mg daily - can consider HAMMOND naltrexone in future if Topamax not helpful - can get through [facility] - referral for in-person alcohol counseling close to patient's home Kidney graft function: rising creatinine to 1.8 on 04/14/25 but went down per patient to 1.4 on 04/15/25 labs. 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 - maintain hydration - renal sparing immunosuppression Immune suppression: standard; most recent tacrolimus level was 14.0 on 03/20/2025. - decrease tacrolimus to 4 mg twice daily - increase Cellcept to 500 mg twice daily - discontinue prednisone 5 mg daily HCC surveillance: Patient is categorized [...] serial Peths and counselling. Patient to take Topamax 50 mg oral daily. Follow up with [...] Chris Orosco MD, MPH Transplant hepatology Pager: [phone] documented in this encounter Plan of Treatment Scheduled Referrals Name Type Priority Associated Diagnoses Orde r Schedule Therapy/Counseli ng Outpatient Referral Routine Kidney transplant recipient Liver transplant recipient ([facility]) Encounter for monitoring tacrolimus therapy Immunosuppressive management encounter following liver transplant ([facility]) Alcohol use disorder, severe, dependence ([facility]) Ordered: 04/16/2025 documented as of this encounter Visit Diagnoses Diagnosis Liver transplant recipient ([facility])- Primary Kidney transplant recipient Encounter for monitoring tacrolimus therapy Immunosuppressive management encounter following liver transplant ([facility]) Alcohol use disorder, severe, dependence ([facility]) Encounter for therapeutic drug monitoring S/P liver transplant ([facility]) Hypomagnesemia Disorders of magnesium metabolism Hypertension, unspecified type Gastroesophageal reflux disease, unspecified whether esophagitis present documented in this encounter Additional Health Concerns Infection Onset Date Last Indicated Resolved Time C. difficile 01/28/2025 01/28/2025 04/28/2025 9:36 PM EST Assessment Noted Time PHQ-9 Depression Total Score: 2 12/11/19 9:00 AM EDT documented as of this encounter Care Teams Cloth Bleaching Range Back Tender Relationship Specialty Start Date End Date Enedina Mcguire NP [address] [place] [address] PCP - General Internal Medicine 10/05/24 Maureen Pantoja, ЮЛИЯ Txp Post Coordinator Transplant Hepatology 10/28/24 Chris Orosco MD [address] [place] [address] [address] [place] [address] Consulting Physician Transplant Hepatology 02/26/25 documented as of this encounter
--- OUTSIDE RECORDS SUMMARY | 2025-04-16 10:51 | XMS_ITS | Encounter Summary ---
Author Organization [facility] Address [facility] [place] [address] Care Team Providers Care Scientific Diver Name Role Phone Enedina Mcguire NP Primary Care Provider + [phone] Maureen Pantoja RN Unavailable Unavail able Chris Orosco MD Unavailable [phone] Source Comments This information has been disclosed [...] release of HIV test results or diagnoses. [id number] Health Reason for Visit * Auth/Cert (Routine) Specialty Diagnoses / Procedures Referred By Shane t Referred To Contact Radiology [facility] [address] [place] [address] Phone: tel: Referral ID Status Reason Start Date Expiration Date Visits Re quested Visits Authorized [id number] 1 1 Encounter Details Date Type Department Care Team (Latest Contact Info) Description 04/16/2025 10:51 AM EST - 04/16/2025 11:59 PM EST Hospital Encounter [facility] [address] [place] [address] hCris Orosco MD [address] [place] [address] History of systemic steroid therapy; Liver transplant recipient ([facility]); Kidney transplant recipient; Immunosuppressive management encounter following liver transplant ([facility]); Encounter for monitoring tacrolimus therapy; Vitamin D deficiency Discharge Disposition: Home or Self Care WITHOUT Home Care Services Social History Tobacco Use Types Packs/Day Years Used Date Smoking Tobacco: Former Cigarettes Smokeless Tobacco: Current Alcohol Use Standard Drinks/Week Comments Yes 0 (1 standard drink = 0.6 oz pure alcohol) History of alcohol abuse, reports no use in 3 week- typically endorses use as 4 glasses of wine a days [facility] Utilities Answer Date Recorded In the past 12 months has th e [employer], gas, oil, or water [employer] threatened to shut off services in [...] 5 ergocalciferol (ERGOCALCIFEROL) 1,250 mcg (50,000 unit) capsuleIndications:En counter for therapeutic drug monitoring,S/P liver transplant ([facility]),Hypomagnese delma,Kidney transplant recipient,Hypertensio n, unspecified type,Gastroesophageal reflux disease, unspecified whether esophagitis present Take 1 capsule (50,000 Units total) by mouth once a week. 4 capsule 2 5 famotidine (PEPCID) 20 MG tabletIndications:Enc ounter for therapeutic drug monitoring,S/P liver transplant ([facility]),Hypomagnese delma,Kidney transplant recipient,Hypertensio n, unspecified type,Gastroesophageal reflux disease, unspecified whether esophagitis present Take 1 tablet by mouth twice daily 60 tablet 5 5 FLUoxetine (PROZAC) 20 MG capsule Take 1 capsule (20 mg total) by mouth daily. 30 capsule 1 5 gabapentin (NEURONTIN) 300 MG capsuleIndications:Ne uropathic Pain,alcoholism Take 1 capsule (300 mg total) by mouth 3 times a day. Work on decreasing to one capsule daily. Indications: Neuropathic Pain, alcoholism 270 capsule 1 5 levothyroxine (SYNTHROID) 75 MCG tablet Take 1 tablet (75 mcg total) by mouth every morning before breakfast. loratadine (CLARITIN) 10 mg tablet Take 1 tablet (10 mg total) by mouth daily as needed for Allergies (itching). 30 tablet 10/17/2024 10:24 AM EDT 5 magnesium chloride (SLOW-MAG) 71.5 mg TbEC Take 2 tablets (143 mg total) by mouth 3 times a day. Patient purchases OTC. Patient reporting some days only taking BID. methocarbamoL (ROBAXIN) 500 MG tablet Take 2 tablets (1,000 mg total) by mouth 3 times a day. 120 tablet 01/30/2025 11:36 AM EDT 5 mycophenolate (CELLCEPT) 250 mg capsuleIndications:Ki dney transplant recipient,Liver transplant recipient ([facility]),Encounter for monitoring tacrolimus therapy,Immunosuppres sive management encounter following liver transplant ([facility]),Encounter for therapeutic drug monitoring,S/P liver transplant ([facility]) Take 2 capsules (500 mg total) by mouth 2 times a day. 60 capsule 5 04/22/2025 10:24 AM EST 5 NIFEdipine (PROCARDIA-XL) 30 MG (OSM) 24 hr tabletIndications:Enc ounter for therapeutic drug monitoring,S/P liver transplant ([facility]),Hypomagnese delma,Kidney transplant recipient,Hypertensio n, unspecified type,Gastroesophageal reflux disease, unspecified whether esophagitis present Take 1 tablet by mouth once daily 30 tablet 5 tacrolimus (PROGRAF) 1 MG capsuleIndications:Pr evention of Kidney Transplant Rejection,Prevention of Liver Transplant Rejection Take 4 capsules (4 mg total) by mouth 2 times a day. Indications: Prevention of Kidney Transplant Rejection, Prevention of Liver Transplant Rejection 300 capsule 5 5 testosterone cypionate 200 mg/mL Kit Inject into the muscle. 1 topiramate (TOPAMAX) 50 MG tabletIndications:alc oholism Take 1 tablet (50 mg total) by mouth daily. Indications: alcoholism 30 tablet 11 5 documented as of this encounter Plan of Treatment Not on file documented as of this encounter Procedures Procedure Name Priority Date/Time Associated Diagnosis Comments DXA BONE DENSITY AXIAL SKELETON Routine 04/16/2025 11:25 AM EST History of systemic steroid therapy Liver transplant recipient ([facility]) Kidney transplant recipient Immunosuppressive management encounter following liver transplant ([facility]) Encounter for monitoring tacrolimus therapy Vitamin D deficiency documented in this encounter Results * DXA bone density axial skeleton (04/16/2025 11:25 AM EST) Anatomical Region Laterality Modality L-spine Nuclear Medicine 04/16/2025 11:1 4 AM EST Impressions 04/16/2025 2:47 PM EST IMPRESSION: Z score is within the expected range for age. T score falls within the range of normal bone mineral density by WHO guidelines. 10-year risk for major osteoporotic fracture based on the FRAX tool is 3.3% and for hip fracture is 0.1% untreated. Recommendations for followup testing Intervals between BMD testing should be determined according to the clinical status of each patient; typically one year after initiation or change of therapy is appropriate, with longer intervals once therapeutic effect is established. In conditions associated with rapid bone loss, such as glucocorticoid therapy, testing more frequently is appropriate. Report Verified by: Sonu Sanchez MD at 04/16/2025 2:47 PM EST Narrative 04/16/2025 2:47 PM EST EXAM: DXA BONE DENSITY AXIAL SKELETON INDICATION: History of systemic steroid therapy; Liver transplant recipient ([facility]); Kidney transplant recipient; Immunosuppressive management encounter following liver transplant ([facility]); Immunosuppressive management encounter following liver transplant ([facility]); Encounter for monitoring tacrolimus therapy; Encounter for monitoring tacrolimus therapy; Vitamin D deficiency TECHNICAL: Bone mineral density analysis was performed on a [employer] scanner. ARTIFACTS: None COMPARISON: No prior studies currently available. FINDINGS: Spine (L1-L4): BMD: 1.474 g/cm2 T-score: 2.1 SD Z-score: 1.4 SD Left femoral neck: BMD:1.181 g/cm2 T-score: 0.9 SD Z-score: 0.7 SD Left total hip: BMD: 1.380 g/cm2 T-score: 1.9 SD Z-score: 1.7 SD Right femoral neck: BMD: 1.131 g/cm2 T-score: 0.5 SD Z-score: 0.3 SD Right total hip: BMD: 1.310 g/cm2 T-score: 1.5 SD Z-score: 1.2 SD The following scores are defined as follows: (1) The T-score is a comparison using standard deviation of the patient versus normal healthy controls. (2) The Z-score is a comparison using standard deviation of the patient versus normal controls matched for sex, race and age. Age: 39 years Procedure Note Sonu Sanchez MD - 04/16/2025 EXAM: DXA BONE DENSITY AXIAL SKELETON INDICATION: History of systemic steroid therapy; Liver transplantrecipient (CMS- [facility]); Kidney transplant recipient; Immunosuppressivemanagement encounter following liver transplant (CMS-HCC);Immunosuppressive management encounter following liver transplant(CMS-HCC); Encounter for monitoring tacrolimus therapy; Encounter formonitoring tacrolimus therapy; Vitamin D deficiency TECHNICAL: Bone mineral density analysis was performed on a [employer]anner. ARTIFACTS: None COMPARISON: No prior studies currently available. FINDINGS: Spine (L1-L4): BMD: 1.474 g/cm2 T-score: 2.1 SD Z-score: 1.4 SD Left femoral neck: BMD:1.181 g/cm2 T-score: 0.9 SD Z-score: 0.7 SD Left total hip: BMD: 1.380 g/cm2 T-score: 1.9 SD Z-score: 1.7 SD Right femoral neck: BMD: 1.131 g/cm2 T-score: 0.5 SD Z-score: 0.3 SD Right total hip: BMD: 1.310 g/cm2 T-score: 1.5 SD Z-score: 1.2 SD The following scores are defined as follows: (1) The T-score is a comparison using standard deviation of the patientversus normal healthy controls. (2) The Z-score is a comparison using standard deviation of the patientversus normal controls matched for sex, race and age. Age: 39 years IMPRESSION: Z score is within the expected range for age. T score falls within therange of normal bone mineral density by WHO guidelines. 10-year risk for major osteoporotic fracture based on the FRAX tool is3.3% and for hip fracture is 0.1% untreated. Recommendations for followup testing Intervals between BMD testing should be determined according to theclinical status of each patient; typically one year after initiation orchange of therapy is appropriate, with longer intervals once therapeuticeffect is established. In conditions associated with rapid bone loss, such as glucocorticoidtherapy, testing more frequently is appropriate. Report Verified by: Sonu Sanchez MD at 04/16/2025 2:47 PM EST Chris Orosco MD IMG DEXA ORDERABLES Final Result documented in this encounter Visit Diagnoses Diagnosis History of systemic steroid therapy Personal history of systemic steroid therapy Liver transplant recipient ([facility]) Kidney transplant recipient Immunosuppressive management encounter following liver transplant ([facility]) Encounter for monitoring tacrolimus therapy Vitamin D deficiency Unspecified vitamin D deficiency documented in this encounter Additional Health Concerns Infection Onset Date Last Indicated Resolved Time C. difficile 01/28/2025 01/28/2025 04/28/2025 9:36 PM EST Assessment Noted Time PHQ-9 Depression Total Score: 2 12/11/19 9:00 AM EDT documented as of this encounter Care Teams Scientific Diver Relationship Specialty Start Date End Date Enedina Mcguire NP [address] [place] [address] PCP - General Internal Medicine 10/05/24 Maureen Pantoja, ЮЛИЯ Txp Post Coordinator Transplant Hepatology 10/28/24 Chris Orosco MD [address] [place] [address] [address] [place] [address] Consulting Physician Transplant Hepatology 02/26/25 documented as of this encounter
[2025-04-29 09:30] LABS: Microscopic, Urine URINE MICROSCOPIC (MICROSCOPIC)
[2025-04-29 09:51] LABS: Hematocrit 43.5 % (42.0-52.0); Hemoglobin 16.0 g/dL (14.1-18.0); Immature Granulocytes % 0.4 %; Mean Corpuscular HGB Conc 36.8 g/dL (31.8-35.4); Mean Corpuscular Hemoglobin 34.7 pg (27.0-31.2); Mean Corpuscular Volume 94.4 fl (80-94); Nucleated Red Blood Cells % 0 %; Platelet Count 162 K/mm3 (142-424); Red Blood Count 4.61 M/mm3 (4.60-6.20); Red Cell Distribution Width-SD 47.2 fL; White Blood Count 6.9 K/mm3 (4.8-10.8)
[2025-04-29 09:55] LABS: Bilirubin,Urine Negative (Negative); Color,Urine YELLOW (Yellow); Glucose,Urine (UA) Negative (Negative); Ketones,Urine Negative (Negative); Leukocyte Esterase,Urine Negative (Negative); PH,Urine 6.0 (5.0-8.5); Protein,Urine Negative (Negative); Specific Gravity, Urine 1.025 (1.005-1.030); Urobilinogen,Urine 0.2 EU/dl (0.2)
--- OUTSIDE RECORDS SUMMARY | 2025-04-29 10:43 | XMS_ITS | Encounter Summary ---
Author Organization [facility] Address [address] [place] [address] Care Team Providers Care Underground Conduit Installer Name Role Phone Enedina Mcguire APRN Primary Care Provider + Reason for Visit * Reason Onset Date Comments Med Refill 04/07/2025 Encounter Details Date Type Department Care Team ([facility] st Contact Info) Description 04/07/2025 Refill [facility] INTERNAL MEDICINE [address] [place] [address] Enedina Mcguire APRN [address] [place] [address] Social History Tobacco Use Types Packs/Day Years Used Date Smoking Tobacco: Former Cigarettes 4 20 Passive Smoke Exposure: Past Smokeless Tobacco: Current Comments:MARIJUANA USE ABOUT 2X PER WEEK - reports no use 08-05-2024 Alcohol Use Standard Drinks/Week Comments Not Currently 0 (1 standard drink = 0.6 oz pure alcohol) 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 [facility] Utilities Answer Date Recorded In the past 12 months has [employer], gas, oil, or water [employer] threatened to shut off services in your [...] 0 10/02/2022 [facility] - Occupational Stress Questionnaire Answer [...] Description 05/18/2025 2:30 PM EST Office Visit [facility] INTERNAL MEDICINE [address] [place] [address] Enedina Mcguire, PRINTER APPRENTICE [address] [place] [address] 05/21/2025 12:30 PM EST Office Visit [facility] PAIN MANAGEMENT [address] [facility] [address] [place] [address] Vazquez Christie PA-C [address] [facility] [address] [place] [address] documented as of this encounter Visit Diagnoses Not on filedocumented in this encounter Additional Health Concerns Assessment Noted Time PHQ-2 Depression Total Score: 1 12/31/19 24 3:25 PM EDT documented as of this encounter Care Teams Underground Conduit Installer Relationship Specialty Start Date End Date Enedina Mcguire APRN [address] [place] [address] PCP - General Nurse Practitioner 10/27/24 documented as of this encounter
--- OUTSIDE RECORDS SUMMARY | 2025-04-29 10:43 | XMS_ITS | Encounter Summary ---
Author Organization [facility] Address [address] [place] [address] Care Team Providers Care Cna Instructor Name Role Phone Enedina Mcguire NP Primary Care Provider + [phone] Maureen Pantoja RN Unavailable Unavail able Chris Orosco MD Unavailable [phone] Source Comments This information has been disclosed [...] release of HIV test results or diagnoses. [id number] Health Encounter Details Date Type Department Care Team (Late st Contact Info) Description 04/15/2025 Chart Note [facility] Liver Transplant at [place] [id number] [address] Marlene Ro MA 04/14 Labs entered from [facility] Social History Tobacco Use Types Packs/Day Years Used Date Smoking Tobacco: Former Cigarettes Smokeless Tobacco: Current Alcohol Use Standard Drinks/Week Comments Yes 0 (1 standard drink = 0.6 oz pure alcohol) History of alcohol abuse, reports no use in 3 week- typically endorses use as 4 glasses of wine a days [facility] Utilities Answer Date Recorded In the past 12 months has [employer] electric, gas, oil, or water company threatened [...] Progress Notes * Marlene Ro MA - 04/15/2025 7:58 AM EST Images from the original note were not included. 04/14 Labs entered from [facility] documented in this encounter Plan of Treatment Not on file documented as of this encounter Procedures Procedure Name Priority Date/Time Associated Diagnosis Comments PHATIDYLETHANOL (PETH) Routine 1:05 PM EST URINE PROTEIN, TOTAL, RANDOM (W/O CREATININE) Routine 04/14/2025 1:05 PM EST HEPATIC FUNCTION PANEL Routine 1:05 PM EST TACROLIMUS LEVEL Routine 04/14/2025 1:05 PM EST CREATININE, URINE, RANDOM Routine 04/14/2025 1:05 PM EST URINALYSIS W/RFL TO MICROSCOPIC Routine 04/14/2025 1:05 PM EST CBC AND DIFFERENTIAL Routine 04/14/2025 1:05 PM EST URINE CULTURE Routine 04/14/2025 1:05 PM EST MAGNESIUM Routine 04/14/2025 1:05 PM EST RENAL FUNCTION PANEL W/O EGFR Routine 04/14/2025 1:05 PM EST documented in this encounter Results * Phatidylethanol (PEth) (04/14/2025 1:05 PM EST) Phosphatidylethanol (PEth) Positive 370 Whole Blood Result [facility] Provider LAB BLOOD ORDERABLES Denisse l Result * (ABNORMAL) Tacrolimus level (04/14/2025 1:05 PM EST) Tacrolimus Lvl 16.0(A) 6 - 15 ng/mL Whole Blood Result [facility] Provider LAB BLOOD ORDERABLES Denisse l Result * Urine culture (04/14/2025 1:05 PM EST) Urine Culture, Comprehensive no growth URINE SPECIMEN / Unknown Result [facility] MICROBIOLOGY - GENERAL OR DERABLES Final Result * Magnesium (04/14/2025 1:05 PM EST) Pathologist [facility] Magnesium 1.6 1.6 - 2.4 mg/dL Plasma Narrative Resulting Agency Comment Kev Downey Result [facility] LAB BLOOD ORDERABLES Denisse l Result * (ABNORMAL) Renal Function Panel w/o EGFR (04/14/2025 1:05 PM EST) Glucose 101 BUN 14 CO2 26(A) 13 - 22 mmol/L Creatinine 1.80 Potassium 4.0 Sodium 142 Chloride 101 Phosphorus 4.7 2.5 - 4.9 mg/dL Calcium 10.0 EGFR 42 mg/dL Albumin 4.5 3.5 - 5.0 g/dL Blood Narrative Resulting Agency Comment Kev Downey Result [facility] Provider LAB BLOOD ORDERABLES Denisse l Result * Creatinine, urine, random (04/14/2025 1:05 PM EST) Creatinine, Urine 123 Urine Narrative Resulting Agency Comment Kev Downey Result [facility] Provider URINE ORDERABLES Final Re sult * Urinalysis w/Rfl to Microscopic (04/14/2025 1:05 PM EST) [facility] Glucose, UA Negative Negative Ketones, UA Negative Negative Blood, UA Negative Negative Bilirubin, UA Negative Negative Urobilinogen, UA Normal Normal Protein, UA Negative Negative Nitrite, UA Negative Negative pH, UA 6.0 4.5 - 8.0 Specific [place], UA 1.020 1.005 - 1.030 Clarity, UA Clear Clear Color, UA Yellow Light Yellow, Yellow Urine Narrative Resulting Agency Comment [facility] Result [facility] Provider URINE ORDERABLES Final Re sult * (ABNORMAL) CBC and differential (04/14/2025 1:05 PM EST) [facility] Hemoglobin 14.5 13.5 - 17.5 g/dL Hematocrit [...] 5.3 10^3/mL Blood Narrative Resulting Agency Comment [facility] Result [facility] Provider LAB BLOOD ORDERABLES Denisse l Result * Urine Protein, Tot, Random (w/o Creat) (04/14/2025 1:05 PM EST) [facility] Total Protein, Ur 22.0 Urine Narrative Resulting Agency Comment [facility] Provider URINE ORDERABLES Final Re sult * Hepatic Function Panel (04/14/2025 1:05 PM EST) Bilirubin, Direct 0.1 Bilirubin, Indirect 0.4 Alkaline Phosphatase 62 ALT 40 AST 50 Total Bilirubin 0.5 Total Protein 6.9 Plasma Narrative Resulting Agency Comment Kev [facility] us Historical Provider LAB BLOOD ORDERABLES Denisse l Result documented in this encounter Visit Diagnoses Not on filedocumented in this encounter Additional Health Concerns Infection Onset Date Last Indicated Resolved Time C. difficile 01/28/2025 01/28/2025 04/28/2025 9:36 PM EST Assessment Noted Time PHQ-9 Depression Total Score: 2 12/11/19 9:00 AM EDT documented as of this encounter Care Teams Cna Instructor Relationship Specialty Start Date End Date Enedina Mcguire NP [address] [place] [address] PCP - General Internal Medicine 10/05/24 Maureen Pantoja, ЮЛИЯ Txp Post Coordinator Transplant Hepatology 10/28/24 Chris Orosco MD [address] [place] [address] [address] [place] [address] Consulting Physician Transplant Hepatology 02/26/25 documented as of this encounter
[2025-04-29 10:44] LABS: Hyaline Casts,Urine OCC #/lpf (0); Squamous Epithelial Cell,Urine Occasional #/hpf (0-5); Uric Acid Crystals,Urine Trace /lpf
--- OUTSIDE RECORDS SUMMARY | 2025-04-29 10:44 | XMS_ITS | Encounter Summary ---
Author Organization [facility] Address [address] [place] [address] Care Team Providers Care Telegraph Operator Name Role Phone Enedina Mcguire NP Primary Care Provider + [phone] Maureen Pantoja RN Unavailable Unavail able Chris Orosco MD Unavailable [phone] Source Comments This information has been disclosed [...] release of HIV test results or diagnoses. [id number] Reason for Visit * Reason Comments Medication Refill Encounter Details Date Type Department Care Team (Late st Contact Info) Description 04/07/2025 Refill [facility] Liver Transplant at [address] [address] Chris Orosco MD [address] [place] [address] Encounter for therapeutic drug monitoring; S/P liver transplant ([facility]); Hypomagnesemia; Kidney transplant recipient; Hypertension, unspecified type; [...] as 4 glasses of wine a days [facility] Utilities Answer Date Recorded In the past 12 months has th e [employer], [employer], oil, or water company threatened to shut [...] as of this encounter Care Teams Telegraph Operator Relationship Specialty Start Date End Date Enedina Mcguire NP [address] [place] [address] PCP - General Internal Medicine 10/05/24 Maureen Pantoja, ЮЛИЯ Txp Post Coordinator Transplant Hepatology 10/28/24 Chris Orosco MD [address] [place] [address] [place] [address] Consulting Physician Transplant Hepatology 02/26/25 documented as of this encounter
--- OUTSIDE RECORDS SUMMARY | 2025-04-29 10:44 | XMS_ITS | Encounter Summary ---
Author Organization [facility] Address [address] [place] [address] Care Team Providers Care Institutional Asset Manager Name Role Phone Enedina Mcguire NP Primary Care Provider + [phone] Maureen Pantoja RN Unavailable Unavail able Chris Orosco MD Unavailable [phone] Source Comments This information has been disclosed [...] release of HIV test results or diagnoses. [id number] Health Reason for Visit * Reason Comments Results Encounter Details Date Type Department Care Team (Late st Contact Info) Description 04/07/2025 Telephone [facility] Liver Transplant at [address] [address] Maureen Pantoja, ЮЛИЯ Results Social History Tobacco Use Types Packs/Day Years Used Date Smoking Tobacco: Former Cigarettes Smokeless Tobacco: Current Alcohol Use Standard Drinks/Week Comments Yes 0 (1 standard drink = 0.6 oz pure alcohol) History of alcohol abuse, reports no use in 3 week- typically endorses use as 4 glasses of wine a days [facility] Utilities Answer Date Recorded In the past 12 months has [place], gas, oil, or water company threatened to [...] Date End Date Enedina Mcguire NP [address] [place] [address] PCP - General Internal Medicine 10/05/24 Maureen Pantoja, ЮЛИЯ Txp Post Coordinator Transplant Hepatology 10/28/24 Chris Orosco MD [address] [place] [address] [address] [place] [address] Consulting Physician Transplant Hepatology 02/26/25 documented as of this encounter
--- OUTSIDE RECORDS SUMMARY | 2025-04-29 10:44 | XMS_ITS | Encounter Summary ---
Author Organization [facility] Address [address] [place] [address] Care Team Providers Care Director Selection And Administration Name Role Phone Enedina Mcguire NP Primary Care Provider + [phone] Maureen Pantoja RN Unavailable Unavail able Chris Orosco MD Unavailable [phone] Source Comments This information has been disclosed [...] release of HIV test results or diagnoses. [id number] [facility] Encounter Details Date Type Department Care Team (Late st Contact Info) Description 04/06/2025 Telephone [facility] Liver Transplant at [address] [address] Mitzy Gill MA Social History [...] Recorded In the past 12 months has [employer] electric, gas, oil, or water company threatened [...] - 04/06/2025 10:40 AM EST Ashley from [facility] called to report critical lab value [...] as of this encounter Care Teams Director Selection And Administration Relationship Specialty Start Date End Date Enedina Mcguire NP [address] [place] [address] PCP - General Internal Medicine 10/05/24 Maureen Pantoja, ЮЛИЯ Txp Post Coordinator Transplant Hepatology 10/28/24 Chris Orosco MD [address] [place] [address] [place] [address] Consulting Physician Transplant Hepatology 02/26/25 documented as of this encounter
--- OUTSIDE RECORDS SUMMARY | 2025-04-29 10:45 | XMS_ITS | Encounter Summary ---
Author Organization [facility] Address [address] [place] [address] Care Team Providers Care Business Analyst Manager Name Role Phone Enedina Mcguire NP Primary Care Provider + [phone] Maureen Pantoja RN Unavailable Unavail able Chris Orosco MD Unavailable [phone] Source Comments This information has been disclosed [...] release of HIV test results or diagnoses. [id number] Health Encounter Details Date Type Department Care Team (Late st Contact Info) Description 04/03/2025 Chart Note [facility] Liver Transplant at [address] [address] Marlene Ro MA 04/03 Labs entered from [facility] Social History Tobacco Use Types Packs/Day Years Used Date Smoking Tobacco: Former Cigarettes Smokeless Tobacco: Current Alcohol Use Standard Drinks/Week Comments Yes 0 (1 standard drink = 0.6 oz pure alcohol) History of alcohol abuse, reports no use in 3 week- typically endorses use as 4 glasses of wine a days [facility] Utilities Answer Date Recorded In the past 12 months has [employer] electric, gas, oil, or water company threatened [...] were not included. 04/03 Labs entered from [facility] documented in this encounter Plan [...] * (ABNORMAL) Magnesium (04/03/2025 12:04 PM EST) [facility] Magnesium 1.0(A) 1.6 - 2.4 mg/dL Plasma Narrative Resulting Agency Comment [facility] Result [facility] LAB BLOOD ORDERABLES Denisse l Result * (ABNORMAL) Renal Function Panel w/o EGFR (04/03/2025 12:04 PM EST) [facility] Glucose 122 BUN 11 CO2 24(A) 13 - 22 mmol/L Creatinine 1.20 Potassium 3.5 Sodium 136 Chloride 100 Phosphorus 3.3 2.5 - 4.9 mg/dL Calcium 9.3 EGFR 67 mg/dL Albumin 5.0 3.5 - 5.0 g/dL Blood Narrative Resulting Agency Comment [facility] Result [facility] LAB BLOOD ORDERABLES Denisse l Result * Urinalysis w/Rfl to Microscopic (04/03/2025 12:04 PM EST) [facility] Glucose, UA Negative Negative Ketones, UA Negative Negative Blood, UA Negative Negative Bilirubin, UA Negative Negative Urobilinogen, UA Normal Normal Protein, UA Negative Negative pH, UA 7.0 4.5 - 8.0 Specific [place], UA 1.010 1.005 - 1.030 Clarity, UA Clear Clear Color, UA Yellow Light Yellow, Yellow Urine Narrative Resulting Agency Comment [facility] Result [facility] Provider URINE ORDERABLES Final Re sult * (ABNORMAL) CBC and differential (04/03/2025 12:04 PM EST) [facility] Hemoglobin 14.5 13.5 - 17.5 g/dL Hematocrit [...] 8.1 10^3/mL Blood Narrative Resulting Agency Comment [facility] Provider LAB BLOOD ORDERABLES Denisse l Result * Hepatic Function Panel (04/03/2025 12:04 PM EST) Bilirubin, Direct 0.2 Bilirubin, Indirect 0.7 Alkaline Phosphatase 123 ALT 53 AST 41 Total Bilirubin 0.9 Total Protein 7.1 Plasma Narrative Resulting Agency Comment [facility] Provider LAB BLOOD ORDERABLES Denisse l Result documented in this encounter Visit Diagnoses Not on filedocumented in this encounter Additional Health Concerns Infection Onset Date Last Indicated Resolved Time C. difficile 01/28/2025 01/28/2025 04/28/2025 9:36 PM EST Assessment Noted Time PHQ-9 Depression Total Score: 2 12/11/19 25 9:00 AM EDT documented as of this encounter Care Teams Business Analyst Manager Relationship Specialty Start Date End Date Enedina Mcguire NP [address] [place] [address] PCP - General Internal Medicine 10/05/24 Maureen Pantoja, ЮЛИЯ Txp Post Coordinator Transplant Hepatology 10/28/24 Chris Orosco MD [address] [place] [address] [address] [place] [address] Consulting Physician Transplant Hepatology 02/26/25 documented as of this encounter
--- OUTSIDE RECORDS SUMMARY | 2025-04-29 10:45 | XMS_ITS | Encounter Summary ---
Author Organization [facility] Address [address] [place] [address] Care Team Providers Care Regulatory Product Manager Name Role Phone Enedina Mcguire NP Primary Care Provider + [phone] Alicia Rankin RN Unavailable Unavail able Chris Orosco MD Unavailable +[phone] Source Comments This information has been disclosed [...] release of HIV test results or diagnoses. [id number] Health Reason for Visit * Reason Comments ask pt how much Mg he is taking / day returning pt's phone call follow up on plan plan of care for patient follow up on plan of care per dr. chandler Encounter Details Date Type Department Care Team (Late st Contact Info) Description 04/03/2025 Telephone [facility] Liver Transplant at [address] [place] [address] Mitzy Gill MA ask pt how [...] the past 12 months has th e [email or web address], gas, oil, or water company threatened to [...] is willing to get a transfusion at [facility]. I coordinated with CC RN [...] - 04/03/2025 1:40 PM EST Steffen from [facility] lab called to report critical lab [...] documented as of this encounter Care Teams Regulatory Product Manager Relationship Specialty Start Date End Date Enedina Mcguire NP [address] [place] [address] PCP - General Internal Medicine 10/05/24 Alicia Rankin, ЮЛИЯ Txp Post Coordinator Transplant Hepatology 10/28/24 Chris Orosco MD [address] [facility] 3[address] [place] [address] Consulting Physician Transplant Hepatology 02/26/25 documented as of this encounter
--- OUTSIDE RECORDS SUMMARY | 2025-04-29 10:45 | XMS_ITS | Encounter Summary ---
Author Organization [facility] Address [address] [place] [address] Care Team Providers Care Associate Brand Manager Name Role Phone Enedina Mcguire NP Primary Care Provider + [phone] Maureen Pantoja RN Unavailable Unavail able Chris Orosco MD Unavailable [phone] Source Comments This information has been disclosed [...] release of HIV test results or diagnoses. [id number] Reason for Visit * Reason Comments Medication Refill Encounter Details Date Type Department Care Team (Late st Contact Info) Description 03/31/2025 Refill [facility] Liver Transplant at [address] [address] Harvey Domínguez III, MD [address] [place] [address] Social History Tobacco Use Types Packs/Day [...] the past 12 months has th e [employer], [employer], oil, or water [employer] threatened to shut off services in [...] as of this encounter Care Teams Associate Brand Manager Relationship Specialty Start Date End Date Enedina Mcguire NP [address] [place] [address] PCP - General Internal Medicine 10/05/24 Maureen Pantoja, ЮЛИЯ Txp Post Coordinator Transplant Hepatology 10/28/24 Chris Orosco MD [facility] [address] [place] [address] Consulting Physician Transplant Hepatology 02/26/25 documented as of this encounter
--- OUTSIDE RECORDS SUMMARY | 2025-04-29 10:46 | XMS_ITS | Encounter Summary ---
Author Organization [facility] Address [address] [place] [address] Care Team Providers Care Rag Room Supervisor Name Role Phone Enedina Mcguire NP Primary Care Provider + [phone] Maureen Pantoja RN Unavailable Unavail able Chris Orosco MD Unavailable [phone] Source Comments This information has been disclosed [...] release of HIV test results or diagnoses. [id number] Encounter Details Date Type Department Care Team (Late st Contact Info) Description 03/30/2025 Chart Note [facility] Liver Transplant at [address] [address] Marlene Ro MA 03/27 Labs entered from [facility] Social History Tobacco Use Types [...] Recorded In the past 12 months has [employer], gas, oil, or water company threatened [...] 10:15 AM EST 03/27 Labs entered from [facility] documented in this encounter Plan [...] (ABNORMAL) Tacrolimus level (03/27/2025 10:52 AM EST) [facility] Tacrolimus Lvl 18.2(A) 6 - 15 ng/mL Whole Blood Result [facility] LAB BLOOD ORDERABLES Denisse l Result * (ABNORMAL) Magnesium (03/27/2025 10:52 AM EST) [facility] Magnesium 1.1(A) 1.6 - 2.4 mg/dL Plasma Narrative Resulting Agency Comment [facility] Result [facility] LAB BLOOD ORDERABLES Denisse l Result * (ABNORMAL) Renal Function Panel w/o EGFR (03/27/2025 10:52 AM EST) [facility] Glucose 110 BUN 12 CO2 25(A) 13 - 22 mmol/L Creatinine 1.20 Potassium 3.8 Sodium 136 Chloride 99 Phosphorus 3.8 2.5 - 4.9 mg/dL Calcium 9.7 EGFR 67 mg/dL Albumin 4.7 3.5 - 5.0 g/dL Blood Narrative Resulting Agency Comment [facility] Result [facility] LAB BLOOD ORDERABLES Denisse l Result * Creatinine, urine, random (03/27/2025 10:52 AM EST) [facility] Creatinine, Urine 81 Urine Narrative Resulting Agency Comment [facility] Result [facility] Provider URINE ORDERABLES Final Re sult * Urinalysis w/Rfl to Microscopic (03/27/2025 10:52 AM EST) [facility] Glucose, UA Negative Negative Ketones, UA Negative Negative Blood, UA Negative Negative Bilirubin, UA Negative Negative Urobilinogen, UA Normal Normal Protein, UA Negative Negative Nitrite, UA Negative Negative pH, UA 7.0 4.5 - 8.0 Specific [place], UA 1.010 1.005 - 1.030 Clarity, UA Clear Clear Color, UA Yellow Light Yellow, Yellow Urine Narrative Resulting Agency Comment [facility] Result [facility] Provider URINE [...] 10^3/mL Blood Narrative Resulting Agency Comment [facility] Result [facility] LAB BLOOD ORDERABLES Denisse l Result * Urine Protein, Tot, Random (w/o Creat) (03/27/2025 10:52 AM EST) Total Protein, Ur 24.0 Urine Narrative Resulting Agency Comment [facility] Result [facility] Provider URINE ORDERABLES Final Re sult * Hepatic Function Panel (03/27/2025 10:52 AM EST) Bilirubin, Direct 0.2 Bilirubin, Indirect 0.7 Alkaline Phosphatase 74 ALT 25 AST 33 Total Bilirubin 0.9 Total Protein 7.1 Plasma Narrative Resulting Agency Comment [facility] us Historical Provider LAB BLOOD ORDERABLES Denisse l Result * Urine culture (03/27/2025 10:52 AM EST) Urine Culture, Comprehensive no growth after 48 hours URINE SPECIMEN / Unknown Narrative Resulting Agency Comment [facility] Historical Provider MICROBIOLOGY - GENERAL OR DERABLES Final Result documented in this encounter Visit Diagnoses Not on filedocumented in this encounter Additional Health Concerns Infection Onset Date Last Indicated Resolved Time C. difficile 01/28/2025 01/28/2025 04/28/2025 9:36 PM EST Assessment Noted Time PHQ-9 Depression Total Score: 2 12/11/19 9:00 AM EDT documented as of this encounter Care Teams Rag Room Supervisor Relationship Specialty Start Date End Date Enedina Mcguire NP [address] [place] [address] PCP - General Internal Medicine 10/05/24 Maureen Pantoja, ЮЛИЯ Txp Post Coordinator Transplant Hepatology 10/28/24 [place] [address] [place] [address] [address] [place] [address] Consulting Physician Transplant Hepatology 02/26/25 documented as of this encounter
--- OUTSIDE RECORDS SUMMARY | 2025-04-29 10:46 | XMS_ITS | Encounter Summary ---
Author Organization [facility] Address [address] [place] [address] Care Team Providers Care Mine Exploration Engineer Name Role Phone Enedina Mcguire NP Primary Care Provider + [phone] Maureen Pantoja RN Unavailable Unavail able Chris Orosco MD Unavailable [phone] Source Comments This information has been disclosed [...] release of HIV test results or diagnoses. [id number] Reason for Visit * Reason Comments Medication Refill Encounter Details Date Type Department Care Team (Late st Contact Info) Description 02/25/2025 Refill [facility] Liver Transplant at [address] [address] Lydia Sanchez MD [address] [place] [address] Liver/[place] [address] Encounter for therapeutic drug monitoring; S/P liver transplant ([facility]); Hypomagnesemia; Kidney transplant recipient; Hypertension, [...] as 4 glasses of wine a days [facility] Utilities Answer Date Recorded In the past 12 months has th e [employer], [employer], oil, or water company threatened to shut [...] as of this encounter Care Teams Mine Exploration Engineer Relationship Specialty Start Date End Date Enedina Mcguire NP [address] [place] [address] PCP - General Internal Medicine 10/05/24 Maureen Pantoja, ЮЛИЯ Txp Post Coordinator Transplant Hepatology 10/28/24 Chris Orosco MD [address] [place] [address] [place] [address] Consulting Physician Transplant Hepatology 02/26/25 documented as of this encounter
--- OUTSIDE RECORDS SUMMARY | 2025-04-29 10:46 | XMS_ITS | Encounter Summary ---
Author Organization [facility] Address [address] [place] [address] Care Team Providers Care Program Management Professional Name Role Phone Enedina Mcguire NP Primary Care Provider + [phone] Maureen Pantoja RN Unavailable Unavail able Chris Orosco MD Unavailable [phone] Source Comments This information has been disclosed [...] release of HIV test results or diagnoses. [id number] Reason for Visit * Reason Comments Medication Refill Encounter Details Date Type Department Care Team (Late st Contact Info) Description 03/02/2025 Refill [facility] [address] [place] [address] Feliciano Gomez CNP [address] [place] [address] [id number] Social History Tobacco Use Types Packs/Day Years Used Date Smoking Tobacco: Former Cigarettes Smokeless Tobacco: Current Alcohol Use Standard Drinks/Week Comments Yes 0 (1 standard drink = 0.6 oz pure alcohol) History of alcohol abuse, reports no use in 3 week- typically endorses use as 4 glasses of wine a days [facility] Utilities Answer Date Recorded In the past 12 months has th e [employer], [employer], oil, or water [employer] threatened to shut off services in your [...] as of this encounter Care Teams Program Management Professional Relationship Specialty Start Date End Date Enedina Mcguire NP [address] [place] [address] PCP - General Internal Medicine 10/05/24 Maureen Pantoja RN Txp Post Coordinator Transplant Hepatology 10/28/24 Chris Orosco MD [address] [place] [address] [address] [place] [address] Consulting Physician Transplant Hepatology 02/26/25 documented as of this encounter
--- OUTSIDE RECORDS SUMMARY | 2025-04-29 10:49 | XMS_ITS | Encounter Summary ---
Author Organization [facility] Address [address] [place] [address] Care Team Providers Care Utility Spray Operator Name Role Phone Enedina Mcguire APRN Primary Care Provider + Encounter Details Date Type Department Care Team ([facility] st Contact Info) Description 10/07/2024 Results Follow-Up [facility] INTERNAL MEDICINE [address] [place] [address] Enedina Mcguire APRN [address] [place] [address] Social History Tobacco Use Types Packs/Day Years Used Date Smoking Tobacco: Former Cigarettes 4 20 Passive Smoke Exposure: Past Smokeless Tobacco: Current Comments:MARIJUANA USE ABOUT 2X PER WEEK - reports no use 08-05-2024 Alcohol Use Standard Drinks/Week Comments Not Currently 0 (1 standard drink = 0.6 oz pure alcohol) 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 [facility] Utilities Answer Date Recorded In the past 12 months has [employer], [employer], oil, or water [employer] threatened to shut off services in your [...] 10/02/2022 [facility] - [...] GED or equivalent No 07/09/2024 Preferred Language Iraqi 07/09/2024 PHQ-2 Answer Date Recorded Patient Health [...] 2:30 PM EST Office Visit [facility] INTERNAL MEDICINE [address] [place] [address] Enedina Mcguire APRN [address] [place] [phone] 05/21/2025 12:30 PM EST Office Visit [facility] PAIN MANAGEMENT [address] [address] Vazquez Christie PA-C [address] [place] [address] [address] [place], [place] [phone] documented as of this encounter Visit Diagnoses Not on filedocumented in this encounter Additional Health Concerns Assessment Noted Time PHQ-2 Depression Total Score: 1 12/31/19 24 3:25 PM EDT documented as of this encounter Care Teams Utility Spray Operator Relationship Specialty Start Date End Date Enedina Mcguire APRN [address] [place] [address] PCP - General Nurse Practitioner 10/27/24 documented as of this encounter
--- OUTSIDE RECORDS SUMMARY | 2025-04-29 10:49 | XMS_ITS | Encounter Summary ---
Author Organization [facility] Address [address] [place] [address] Care Team Providers Care Carbon Electrodes Supervisor Name Role Phone Enedina Mcguire APRN Primary Care Provider + Reason for Visit * Reason Comments Med Refill Encounter Details Date Type Department Care Team (Late st Contact Info) Description 09/12/2022 Refill [facility] GASTROENTEROLOGY [address] [place] [phone] Lj Tapia APRN [address] [place] [address] Social History Tobacco Use Types Packs/Day Years [...] when you are drinking? 3 or 4 3 Q3: How often do you have si [...] or training? Not on file Preferred Language Turkmen 07/03/2022 Sex and Gender Information Value Date [...] [facility] INTERNAL MEDICINE [address] [place] [address] Enedina Mcguire APRN [address] [place] [address] 05/21/2025 12:30 PM EST Office Visit [facility] PAIN MANAGEMENT [address] [facility] [address] [place] [address] Vazquez Christie PA-C [address] [facility] [address] [place] [address] documented as of this encounter Visit Diagnoses Not on filedocumented in this encounter Care Teams Carbon Electrodes Supervisor Relationship Specialty Start Date End Date Enedina Mcguire APRN [address] [place] [address] PCP - General Nurse Practitioner 10/27/24 documented as of this encounter
--- OUTSIDE RECORDS SUMMARY | 2025-04-29 10:49 | XMS_ITS | Encounter Summary ---
Author Organization [facility] Address [address] [place] [address] Care Team Providers Care Acetylene Cylinder Packing Mixer Name Role Phone Jony Conde MD Primary Care Provider [phone] Lj Tapia COMMUNICATIONS TECH Unavailable [phone] Enedina Mcguire COMMUNICATIONS TECH Primary Care Provider + Nuria Fall GROUP INSURANCE SPECIALIST Unavailable Unavaila ble Encounter Details Date Type Department Care Team (Late st Contact Info) Description 07/04/2022 Orders Only External Location [address] [place] [address] Presley Montes De Oca MD [address] [place] [id number] Social History Tobacco Use Types Packs/Day Years [...] on filedocumented in this encounter Care Teams Acetylene Cylinder Packing Mixer Relationship Specialty Start Date End Date Jony Conde MD [address] [facility] [address] [place] [address] PCP - General 07/18/22 12/03/22 Enedina Mcguire APRN [address] [place] [address] PCP - General 12/04/22 Lj Tapia APRN [address] [place] [address] Referring Physician Gastroenterology 07/18/22 Nuria Fall LPN [facility] None TCM Nurse 07/24/24 08/23/24 documented as of this encounter
--- OUTSIDE RECORDS SUMMARY | 2025-04-29 10:49 | XMS_ITS | Encounter Summary ---
Author Organization [facility] Address [address] [place] [address] Care Team Providers Care Clinical Academic Allergist Name Role Phone Enedina Mcguire APRN Primary Care Provider + Encounter Details Date Type Department Care Team ([facility] st Contact Info) Description 10/07/2024 Results Follow-Up [facility] INTERNAL MEDICINE [address] [place] [address] Enedina Mcguire APRN [address] [place] [address] Social History Tobacco Use Types [...] Recorded In the past 12 months has [employer], [employer], oil, or water [employer] threatened to shut off services in [...] 10/02/2022 [facility] - [facility]ational [...] Description 05/18/2025 2:30 PM EST Office Visit [facility] INTERNAL MEDICINE [address] [place] [address] Enedina Mcguire APRN [address] [place] [address] [phone] 05/21/2025 12:30 PM EST Office Visit [facility] PAIN MANAGEMENT [address] [address] Vazquez Christie PA-C [address] [place] [address] [address] [place], [place] [phone] documented as of this encounter Visit Diagnoses Not on filedocumented in this encounter Additional Health Concerns Assessment Noted Time PHQ-2 Depression Total Score: 1 12/31/19 24 3:25 PM EDT documented as of this encounter Care Teams Clinical Academic Allergist Relationship Specialty Start Date End Date Enedina Mcguire APRN [address] [place] [address] PCP - General Nurse Practitioner 10/27/24 documented as of this encounter
--- OUTSIDE RECORDS SUMMARY | 2025-04-29 10:50 | XMS_ITS | Encounter Summary ---
Author Organization [facility] Address [address] [place] [address] Care Team Providers Care Beading Machine Operator Name Role Phone Enedina Mcguire APRN Primary Care Provider + Reason for Visit * Reason Onset Date Comments Med Refill 03/16/2025 Encounter Details Date Type Department Care Team ([facility] st Contact Info) Description 03/15/2025 Refill [facility] INTERNAL MEDICINE [address] [place] [address] Enedina Mcguire APRN [address] [place] [address] Acquired hypothyroidism Social History Tobacco [...] Recorded In the past 12 months has [employer], gas, oil, or water company threatened to [...] Measure Score 0 10/02/2022 [facility] - Occupational Stress Questionnaire Answer [...] Description 05/18/2025 2:30 PM EST Office Visit [facility] INTERNAL MEDICINE [address] [place] [address] Enedina Mcguire, PROPELLANT ASSEMBLER [address] [place] [address] 05/21/2025 12:30 PM EST Office Visit [facility] PAIN MANAGEMENT [address] [facility] [address] [place] [address] Vazquez Christie PA-C [address] [facility] [address] [place] [address] documented as of this encounter Visit Diagnoses Diagnosis Acquired hypothyroidism Unspecified hypothyroidism documented in this encounter Additional Health Concerns Assessment Noted Time PHQ-2 Depression Total Score: 1 12/31/19 24 3:25 PM EDT documented as of this encounter Care Teams Beading Machine Operator Relationship Specialty Start Date End Date Enedina Mcguire APRN [address] [place] [address] PCP - General Nurse Practitioner 10/27/24 documented as of this encounter
--- OUTSIDE RECORDS SUMMARY | 2025-04-29 10:50 | XMS_ITS | Encounter Summary ---
Author Organization [facility] Address [address] [place] [address] Care Team Providers Care Prn Physical Therapist Name Role Phone Jony Conde MD Primary Care Provider [phone] Lj Tapia BAGGING SALVAGER Unavailable [phone] Enedina Mcguire BAGGING SALVAGER Primary Care Provider + Nuria Fall HASHER MACHINE OPERATOR Unavailable Unavaila ble Encounter Details Date Type Department Care Team (Late st Contact Info) Description 07/03/2022 Orders Only External Location [address] [place] [address] Presley Montes De Oca MD [address] [place] [id number] Social History Tobacco Use Types Packs/Day Years [...] on filedocumented in this encounter Care Teams Prn Physical Therapist Relationship Specialty Start Date End Date Jony Conde MD [address] [place] [address] [address] [place] [address] PCP - General 07/18/22 12/03/22 Enedina Mcguire APRN [address] [place] [address] PCP - General 12/04/22 Lj Tapia APRN [facility]0 [place], [place] [phone] Referring Physician Gastroenterology 07/18/22 Nuria Fall LPN [facility] None TCM Nurse 07/24/24 08/23/24 documented as of this encounter
--- OUTSIDE RECORDS SUMMARY | 2025-04-29 10:50 | XMS_ITS | Encounter Summary ---
Author Organization [facility] Address [address] [place] [address] Care Team Providers Care Drawer Upfitter Name Role Phone Enedina Mcguire NP Primary Care Provider + [phone] Maureen Pantoja RN Unavailable Unavail able Chris Orosco MD Unavailable [phone] Source Comments This information has been disclosed [...] release of HIV test results or diagnoses. [id number] Health Reason for Visit * Reason Comments Results Medication Dose Change Encounter Details Date Type Department Care Team (Late st Contact Info) Description 03/24/2025 Telephone [facility] Liver Transplant at [address] [address] Maureen Pantoja, ЮЛИЯ Results; Medication Dose Change Social History Tobacco Use Types Packs/Day Years Used Date Smoking Tobacco: Former Cigarettes Smokeless Tobacco: Current Alcohol Use Standard Drinks/Week Comments Yes 0 (1 standard drink = 0.6 oz pure alcohol) History of alcohol abuse, reports no use in 3 week- typically endorses use as 4 glasses of wine a days [facility] Utilities Answer Date Recorded In the past 12 months has [employer], gas, oil, or water company threatened [...] for therapeutic drug monitoring S/P liver transplant ([facility]) Hypomagnesemia Disorders of magnesium metabolism Kidney transplant recipient Hypertension, unspecified type Gastroesophageal reflux disease, unspecified whether esophagitis present documented in this encounter Additional Health Concerns Infection Onset Date Last Indicated Resolved Time C. difficile 01/28/2025 01/28/2025 04/28/2025 9:36 PM EST Assessment Noted Time PHQ-9 Depression Total Score: 2 12/11/19 9:00 AM EDT documented as of this encounter Care Teams Drawer Upfitter Relationship Specialty Start Date End Date Enedina Mcguire NP [address] [place] [address] PCP - General Internal Medicine 10/05/24 Maureen Pantoja, ЮЛИЯ Txp Post Coordinator Transplant Hepatology 10/28/24 Chris Orosco MD [address] [place] [address] [address] [place] [address] Consulting Physician Transplant Hepatology 02/26/25 documented as of this encounter
--- OUTSIDE RECORDS SUMMARY | 2025-04-29 10:50 | XMS_ITS | Encounter Summary ---
Author Organization Healthcare Address [address] [place] [address] Care Team Providers Care Mainframe Architect Name Role Phone Jony Conde MD Primary Care Provider [phone] Lj Tapia LANDSCAPE ARCHITECTURE PROFESSOR Unavailable [phone] Enedina Mcguire APRN Primary Care Provider + Nuria Fall VESSEL SLAGMAN Unavailable Unavaila ble Encounter Details Date Type Department Care Team (Late st Contact Info) Description 07/02/2022 Orders Only External Location [address] [place] [address] Provider, External Social History Tobacco Use Types [...] on filedocumented in this encounter Care Teams Mainframe Architect Relationship Specialty Start Date End Date Jony Conde MD [address] [facility] [address] [place], [place] [id number] PCP - General 07/18/22 12/03/22 Enedina Mcguire APRN [address] [place] [address] PCP - General 12/04/22 Lj Tapia APRN [address] [place] [address] Referring Physician Gastroenterology 07/18/22 Nuria Fall LPN [facility] None TCM Nurse 07/24/24 08/23/24 documented as of this encounter
--- OUTSIDE RECORDS SUMMARY | 2025-04-29 10:50 | XMS_ITS | Encounter Summary ---
Author Organization [facility] Address [address] [place] [address] Care Team Providers Care Rag Sorter Name Role Phone Enedina Mcguire APRN Primary Care Provider + Reason for Visit * Reason Onset Date Comments Med Refill 03/20/2025 Encounter Details Date Type Department Care Team ([facility] st Contact Info) Description 03/19/2025 Refill [facility] INTERNAL MEDICINE [address] [place] [address] Enedina Mcguire APRN [address] [place] [address] Low testosterone in male Social [...] Recorded In the past 12 months has [employer], gas, oil, or water [employer] threatened to shut off services in your [...] 0 10/02/2022 [facility] - Occupational Stress Questionnaire [...] GED or equivalent No 07/09/2024 Preferred Language Irish 07/09/2024 PHQ-2 Answer Date Recorded Patient [...] [facility] INTERNAL MEDICINE [address] [place] [address] Enedina Mcguire APRN [address] [place] [address] 05/21/2025 12:30 PM EST Office Visit [facility] PAIN MANAGEMENT [address] [facility] [address] [place] [address] Vazquez Christie PA-C [address] [facility] [address] [place] [address] documented as of this encounter Visit Diagnoses Diagnosis Low testosterone in male documented in this encounter Additional Health Concerns Assessment Noted Time PHQ-2 Depression Total Score: 1 12/31/19 24 3:25 PM EDT documented as of this encounter Care Teams Rag Sorter Relationship Specialty Start Date End Date Enedina Mcguire, CONTAINER PACKER OPERATOR [address] [place] [address] PCP - General Nurse Practitioner 10/27/24 documented as of this encounter
--- OUTSIDE RECORDS SUMMARY | 2025-04-29 10:50 | XMS_ITS | Encounter Summary ---
Author Organization [facility] Address [address] [place] [address] Care Team Providers Care Drawer In Dobby Loom Name Role Phone Enedina Mcguire APRN Primary Care Provider + Encounter Details Date Type Department Care Team (Late st Contact Info) Description 03/19/2025 Documentation [facility] PAIN MANAGEMENT [address] [address] Tye Song MD [address] [facility] [address] [place] [address] Social History Tobacco Use Types Packs/Day Years Used Date Smoking Tobacco: Former Cigarettes 4 20 Passive Smoke Exposure: Past Smokeless Tobacco: Current Comments:MARIJUANA USE ABOUT 2X PER WEEK - reports no use 08-05-2024 Alcohol Use Standard Drinks/Week Comments Not Currently 0 (1 standard drink = 0.6 oz pure alcohol) 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 [facility] Utilities Answer Date Recorded In the past 12 months has [employer], gas, oil, or water [employer] threatened to shut off services in your [...] Measure Score 0 10/02/2022 [facility] - Occupational [...] GED or equivalent No 07/09/2024 Preferred Language Saudi Arabian 07/09/2024 PHQ-2 Answer Date Recorded Patient Health Questionnaire-2 Score 0 03/03/2025 Sex and Gender Information Value Date Recorded Sex Assigned at Male 08/20/2024 8:28 PM EDT Legal Sex Male 7:45 AM EDT Gender Identity Not on file Sexual Orientation Not on file documented as of this encounter Progress Notes * Tye Song MD - 03/19/2025 9:37 AM EST [facility] [address] [place] [address] 03/19/2025 PROCEDURE: Greater Occipital Nerve Block -RIGHT [...] discharge. FOLLOW UP: As scheduled ADDITIONAL NOTES: [facility] Management Tye Song MD documented in this encounter Plan of Treatment Upcoming Encounters Date Type Department Care Team (Late st Contact Info) Description 05/18/2025 2:30 PM EST Office Visit [facility] INTERNAL MEDICINE [address] [place] [phone] nEedina Mcguire APRN [address] [place] [phone] 05/21/2025 12:30 PM EST Office Visit [facility] PAIN MANAGEMENT [address] [address] Vazquez Christie PA-C [address] [place], [place] [id number] documented as of this encounter Visit Diagnoses Not on filedocumented in this encounter Additional Health Concerns Assessment Noted Time PHQ-2 Depression Total Score: 1 12/31/19 24 3:25 PM EDT documented as of this encounter Care Teams Drawer In Dobby Loom Relationship Specialty Start Date End Date Enedina Mcguire APRN [address] [place] [id number] PCP - General Nurse Practitioner 10/27/24 documented as of this encounter
--- OUTSIDE RECORDS SUMMARY | 2025-04-29 10:50 | XMS_ITS | Encounter Summary ---
Author Organization [facility] Address [address] [place] [address] Care Team Providers Care Dock Worker Name Role Phone Enedina Mcguire APRN Primary Care Provider + Encounter Details Date Type Department Care Team ([facility] st Contact Info) Description 02/23/2025 Results Follow-Up [facility] INTERNAL MEDICINE [address] [place] [address] Enedina Mcguire APRN [address] [place] [address] Social History Tobacco Use Types Packs/Day Years Used Date Smoking Tobacco: Former Cigarettes 4 20 Passive Smoke Exposure: Past Smokeless Tobacco: Current Comments:MARIJUANA USE ABOUT 2X PER WEEK - reports no use 08-05-2024 Alcohol Use Standard Drinks/Week Comments Not Currently 0 (1 standard drink = 0.6 oz pure alcohol) 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 [facility] Utilities Answer Date Recorded In the past 12 months has [employer], oil, or water [employer] threatened to shut off services in your [...] Measure Score 0 10/02/2022 [facility] - Occupational Stress Questionnaire Answer Date Recorded [...] GED or equivalent No 07/09/2024 Preferred Language Somali 07/09/2024 PHQ-2 Answer Date Recorded Patient Health [...] Description 05/18/2025 2:30 PM EST Office Visit [facility] INTERNAL MEDICINE [address] [place] [address] Enedina Mcguire APRN [address] [place] [phone] 05/21/2025 12:30 PM EST Office Visit [facility] PAIN MANAGEMENT [address] [address] Vazquez Christie PA-C [address] [place] [address] [address] [place], [place] [phone] documented as of this encounter Visit Diagnoses Not on filedocumented in this encounter Additional Health Concerns Assessment Noted Time PHQ-2 Depression Total Score: 1 12/31/19 24 3:25 PM EDT documented as of this encounter Care Teams Dock Worker Relationship Specialty Start Date End Date Enedina Mcguire APRN [address] [place] [address] PCP - General Nurse Practitioner 10/27/24 documented as of this encounter
--- OUTSIDE RECORDS SUMMARY | 2025-04-29 10:50 | XMS_ITS | Encounter Summary ---
Author Organization [facility] Address [address] [place] [address] Care Team Providers Care Machinist 2Nd Shift Name Role Phone Enedina Mcguire NP Primary Care Provider + [phone] Maureen Pantoja RN Unavailable Unavail able Chris Orosco MD Unavailable [phone] Source Comments This information has been disclosed [...] release of HIV test results or diagnoses. [id number] Encounter Details Date Type Department Care Team (Late st Contact Info) Description 04/16/2025 Social Work [facility] Liver Transplant at [address] [address] Kaylin Willard MSW Social History Tobacco Use Types Packs/Day Years Used Date Smoking Tobacco: Former Cigarettes Smokeless Tobacco: Current Alcohol Use Standard Drinks/Week Comments Yes 0 (1 standard drink = 0.6 oz pure alcohol) History of alcohol abuse, reports no use in 3 week- typically endorses use as 4 glasses of wine a days [facility] Utilities Answer Date Recorded In the past 12 months has [employer], gas, oil, or water company threatened to [...] encounter Progress Notes * NUBIA Barros - 04/16/2025 1:53 PM EST Social Work Outpatient Note- Liver Transplant Patient is status post SLK transplant on 10/27/2024. SW met with Patient and spouse during Post Liver Transplant Clinic. 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 Patient endorses continued alcohol use at ~3 glasses of wine most nights per week. He admits these are likely large pours closer to ~6 glasses of wine most nights. Of note, patient completes frequent PEth monitorin04/03/2025 PEth of 496 ng/ml 03/27/2025 PEth of 390 ng/ml 03/20/2025 PEth of 409 ng/ml 03/10/2025 PEth of 413 ng/ml 03/04/2025 PEth of 587 ng/ml 02/10/2025 PEth of 288 ng/ml He notes a few periods of sobriety lasting a few days and notes he did not use during . His adds that she does not allow alcohol in the house. Patient notes that he has some friends that are supportive of his sobriety but feels somewhat isolated during this time. SW normalized and empathized with patient experiences. SW reviewed patients goal to stop all alcohol use for his health and safety. He reports he stopped attending [facility] due to cost and did not feel it was effective for him. He is open to an in-person treatment center near his home. SW to look for resources and provide to patient via [employer]. Patient has also stopped taking Naltrexone and was started on Topamax and discussed possible Vivitrol injection with MEREDITH and providers today. SW to continue to follow. NUBIA Barros, LEADER WRITER Transplant Education Trainer documented in this encounter Plan of Treatment Not on file documented as of this encounter Visit Diagnoses Not on filedocumented in this encounter Additional Health Concerns Infection Onset Date Last Indicated Resolved Time C. difficile 01/28/2025 01/28/2025 04/28/2025 9:36 PM EST Assessment Noted Time PHQ-9 Depression Total Score: 2 12/11/19 9:00 AM EDT documented as of this encounter Care Teams Machinist 2Nd Shift Relationship Specialty Start Date End Date Enedina Mcguire NP [address] [place] [address] PCP - General Internal Medicine 10/05/24 Maureen Pantoja, ЮЛИЯ Txp Post Coordinator Transplant Hepatology 10/28/24 [place] [address] [place] [address] [address] [place] [address] Consulting Physician Transplant Hepatology 02/26/25 documented as of this encounter
--- OUTSIDE RECORDS SUMMARY | 2025-04-29 10:50 | XMS_ITS | Encounter Summary ---
Author Organization [facility] Address [address] [place] [address] Care Team Providers Care Coal Gasification Technician Name Role Phone Enedina Mcguire NP Primary Care Provider + [phone] Maureen Pantoja RN Unavailable Unavail able Chris Orosco MD Unavailable [phone] Source Comments This information has been disclosed [...] release of HIV test results or diagnoses. [id number] Health Reason for Visit * Reason Comments Results Encounter Details Date Type Department Care Team (Late st Contact Info) Description 04/20/2025 Telephone [facility] Liver Transplant at [address] [address] Maureen Pantoja, ЮЛИЯ Results Social History Tobacco Use Types Packs/Day Years Used Date Smoking Tobacco: Former Cigarettes Smokeless Tobacco: Current Alcohol Use Standard Drinks/Week Comments Yes 0 (1 standard drink = 0.6 oz pure alcohol) History of alcohol abuse, reports no use in 3 week- typically endorses use as 4 glasses of wine a days [facility] Utilities Answer Date Recorded In the past 12 months has [employer], gas, oil, or water company threatened to [...] Progress Notes * Maureen Pantoja RN - 04/20/2025 2:40 PM EST Lab results from 04/14/25 reviewed during clinic visit on 04/16/25. Received FK result today. Level supratherapeutic, however labs timed around ~ 1 PM and still unclear if trough level. Patient's FK dose was decreased at 04/16/25 clinic visit. Will follow-up on next level. Message sent to patient to confirm tacro admin times. documented in this encounter Plan of Treatment Not on file documented as of this encounter Visit Diagnoses Not on filedocumented in this encounter Additional Health Concerns Infection Onset Date Last Indicated Resolved Time C. difficile 01/28/2025 01/28/2025 04/28/2025 9:36 PM EST Assessment Noted Time PHQ-9 Depression Total Score: 2 12/11/19 9:00 AM EDT documented as of this encounter Care Teams Coal Gasification Technician Relationship Specialty Start Date End Date Enedina Mcguire NP [address] [place] [address] PCP - General Internal Medicine 10/05/24 Maureen Pantoja, ЮЛИЯ Txp Post Coordinator Transplant Hepatology 10/28/24 Chris Orosco MD [address] [place] [address] [address] [place] [address] Consulting Physician Transplant Hepatology 02/26/25 documented as of this encounter
--- OUTSIDE RECORDS SUMMARY | 2025-04-29 10:50 | XMS_ITS | Encounter Summary ---
Author Organization [facility] Address [address] [place] [address] Care Team Providers Care Logistics Technician Name Role Phone Enedina Mcguire NP Primary Care Provider + [phone] Maureen Pantoja RN Unavailable Unavail able Chris Orosco MD Unavailable [phone] Source Comments This information has been disclosed [...] release of HIV test results or diagnoses. [id number] Encounter Details Date Type Department Care Team (Late st Contact Info) Description 04/23/2025 Chart Note [facility] Liver Transplant at [place] [id number] [address] [address] Marlene Ro MA 04/22 Labs entered from [facility] Social History Tobacco Use Types Packs/Day Years Used Date Smoking Tobacco: Former Cigarettes Smokeless Tobacco: Current Alcohol Use Standard Drinks/Week Comments Yes 0 (1 standard drink = 0.6 oz pure alcohol) History of alcohol abuse, reports no use in 3 week- typically endorses use as 4 glasses of wine a days [facility] Utilities Answer Date Recorded In the past 12 months has [employer] electric, gas, oil, or water company threatened [...] URINE PROTEIN, TOTAL, RANDOM (W/O CREATININE) Routine 04/22/2025 9:59 AM EST HEPATIC FUNCTION PANEL Routine 04/22/2025 9:59 AM EST CREATININE, URINE, RANDOM Routine 04/22/2025 9:59 AM EST URINALYSIS W/RFL TO MICROSCOPIC Routine 04/22/2025 9:59 AM EST CBC AND DIFFERENTIAL Routine 04/22/2025 9:59 AM EST MAGNESIUM Routine 04/22/2025 9:59 AM EST RENAL FUNCTION PANEL W/O EGFR Routine 04/22/2025 9:59 AM EST documented in this encounter Results * (ABNORMAL) Magnesium (04/22/2025 9:59 AM EST) Magnesium 1.1(A) 1.6 - 2.4 mg/dL Plasma Narrative Resulting Agency Comment [facility] Historical Provider LAB BLOOD ORDERABLES Denisse l Result * Renal Function Panel w/o EGFR (04/22/2025 9:59 AM EST) Glucose 101 BUN 14 CO2 22 13 - 22 mmol/L Creatinine 1.60 Potassium 4.0 Sodium 141 Chloride 104 Phosphorus 4.0 2.5 - 4.9 mg/dL Calcium 9.1 EGFR 48 mg/dL Albumin 4.7 3.5 - 5.0 g/dL Blood Narrative Resulting Agency Comment [facility] Historical Provider LAB BLOOD ORDERABLES Denisse l Result * Creatinine, urine, random (04/22/2025 9:59 AM EST) Creatinine, Urine 115 Urine Narrative Resulting Agency Comment [facility] Result [facility] Provider URINE ORDERABLES Final Re sult * Urinalysis w/Rfl to Microscopic (04/22/2025 9:59 AM EST) Glucose, UA Negative Negative Ketones, UA Negative Negative Blood, UA Negative Negative Bilirubin, UA Negative Negative Urobilinogen, UA Normal Normal Protein, UA Negative Negative Nitrite, UA Negative Negative pH, UA 6.0 4.5 - 8.0 Specific [place], UA 1.020 1.005 - 1.030 Clarity, UA Clear Clear Color, UA Yellow Light Yellow, Yellow Urine Narrative Resulting Agency Comment [facility] Result [facility] Provider URINE ORDERABLES Final Re sult * (ABNORMAL) CBC and differential (04/22/2025 9:59 AM EST) Hemoglobin 14.5 13.5 - 17.5 g/dL Hematocrit 41.1 41 - 53 % RDW 13.4 11.5 - 14.5 % Lymphocytes Absolute 2.0 / L Monocytes Absolute 0.7 / L Eosinophils Absolute 0.1 / L Basophils Absolute 0.1 / L Neutrophils Relative 61.7 46 - 78 % Lymphocytes Relative 26.5 18 - 52 % Monocytes Relative 8.9 3 - 10 % Eosinophils Relative 1.2 0 - 6 % Basophils Relative 1.2 0 - 3 % Neutrophils Absolute 4.6 / L MCH 33.6 26.0 - 34.0 pg MCHC 35.3 30 - 37 g/dL MCV 95.4 82.0 - 108.0 fL Platelets 148 K/ L RBC 4.31(A) 4.50 - 5.90 10^6/ L WBC 7.4 10^3/mL Blood Narrative Resulting Agency Comment [facility] Result [facility] Provider LAB BLOOD ORDERABLES Denisse l Result * Urine Protein, Tot, Random (w/o Creat) (04/22/2025 9:59 AM EST) Total Protein, Ur 16.0 Urine Narrative Resulting Agency Comment [facility] Historical Provider URINE ORDERABLES Final Re sult * Hepatic Function Panel (04/22/2025 9:59 AM EST) Bilirubin, Direct 0.1 Bilirubin, Indirect 0.7 Alkaline Phosphatase 66 ALT 51 AST 54 Total Bilirubin 0.8 Total Protein 6.9 Plasma Narrative Resulting Agency Comment [facility] Historical Provider LAB BLOOD ORDERABLES Denisse l Result documented in this encounter Visit Diagnoses Not on filedocumented in this encounter Additional Health Concerns Infection Onset Date Last Indicated Resolved Time C. difficile 01/28/2025 01/28/2025 04/28/2025 9:36 PM EST Assessment Noted Time PHQ-9 Depression Total Score: 2 12/11/19 9:00 AM EDT documented as of this encounter Care Teams Logistics Technician Relationship Specialty Start Date End Date Enedina Mcguire NP [address] [place] [address] PCP - General Internal Medicine 10/05/24 Maureen Pantoja, ЮЛИЯ Txp Post Coordinator Transplant Hepatology 10/28/24 Chris Orosco MD [address] [place] [address] [address] [place] [address] Consulting Physician Transplant Hepatology 02/26/25 documented as of this encounter
--- OUTSIDE RECORDS SUMMARY | 2025-04-29 10:50 | XMS_ITS | Encounter Summary ---
Author Organization Healthcare Address [address] [place] [address] Care Team Providers Care Vineyard Tender Name Role Phone Jony Conde MD Primary Care Provider [phone] Lj Tapia SECURITIES SALES ASSOCIATE Unavailable [phone] Enedina Mcguire SECURITIES SALES ASSOCIATE Primary Care Provider + Nuria Fall SENIOR INVESTMENT ANALYST Unavailable Unavaila ble Encounter Details Date Type Department Care Team (Late st Contact Info) Description 07/04/2022 Orders Only External Location [address] [place] [address] Presley Montes De Oca MD [address] [place] [id number] Social History Tobacco Use Types Packs/Day Years [...] on filedocumented in this encounter Care Teams Vineyard Tender Relationship Specialty Start Date End Date Jony Conde MD [address] [place] [address] [address] [place], [place] [phone] PCP - General 07/18/22 12/03/22 Enedina Mcguire APRN [address] [place] [address] PCP - General 12/04/22 Lj Tapia APRN [address] [place] [phone] Referring Physician Gastroenterology 07/18/22 Nuria Fall LPN [facility] None TCM Nurse 07/24/24 08/23/24 documented as of this encounter
--- OUTSIDE RECORDS SUMMARY | 2025-04-29 10:50 | XMS_ITS | Encounter Summary ---
Author Organization [facility] Address [address] [place] [address] Care Team Providers Care Purchasing Coordinator Name Role Phone Enedina Mcguire NP Primary Care Provider + [phone] Maureen Pantoja RN Unavailable Unavail able Chris Orosco MD Unavailable [phone] Source Comments This information has been disclosed [...] release of HIV test results or diagnoses. [id number] Encounter Details Date Type Department Care Team (Late st Contact Info) Description 03/20/2025 Chart Note [facility] Liver Transplant at [place] [id number] [address] Marlene Ro MA 03/20 Labs entered from [facility] Social History Tobacco Use Types Packs/Day Years Used Date Smoking Tobacco: Former Cigarettes Smokeless Tobacco: Current Alcohol Use Standard Drinks/Week Comments Yes 0 (1 standard drink = 0.6 oz pure alcohol) History of alcohol abuse, reports no use in 3 week- typically endorses use as 4 glasses of wine a days [facility] Utilities Answer Date Recorded In the past 12 months has [employer] electric, gas, oil, or water company threatened [...] 11:09 AM EST 03/20 Labs entered from [facility] documented in this encounter Plan [...] 6 - 15 ng/mL Whole Blood Result [facility] Provider LAB BLOOD ORDERABLES Denisse l Result * Phatidylethanol (PEth) (03/20/2025 7:15 AM EST) Phosphatidylethanol (PEth) Positive 409 Whole Blood Result [facility] Provider LAB BLOOD ORDERABLES Denisse l Result * BK Virus Quantitative by PCR, Blood (03/20/2025 7:15 AM EST) BK Virus Quant PCR PL negative Plasma Result [facility] LAB BLOOD ORDERABLES Denisse l Result * Urine culture (03/20/2025 7:15 AM EST) Urine Culture, Comprehensive no growth after 48 hours URINE SPECIMEN / Unknown Result [facility] Provider MICROBIOLOGY - GENERAL OR DERABLES Final Result * Creatinine, urine, random (03/20/2025 7:15 AM EST) Creatinine, Urine 111 Urine Result [facility] Provider URINE ORDERABLES Final Re sult * Urine Protein, Tot, Random (w/o Creat) (03/20/2025 7:15 AM EST) Total Protein, Ur 19.0 Urine Result [facility] Provider URINE ORDERABLES Final Re sult * (ABNORMAL) Magnesium (03/20/2025 7:15 AM EST) Magnesium 1.2(A) 1.6 - 2.4 mg/dL Plasma Narrative Resulting Agency Comment [facility] Provider LAB BLOOD ORDERABLES Denisse l Result * (ABNORMAL) Urinalysis w/Rfl to Microscopic (03/20/2025 7:15 AM EST) [facility] Glucose, UA Negative Negative Ketones, UA Negative Negative Blood, UA Negative Negative Bilirubin, UA Negative Negative Urobilinogen, UA Normal Normal Protein, UA Trace(A) Negative Nitrite, UA Negative Negative Clarity, UA Clear Clear Color, UA Yellow Light Yellow, Yellow Urine Narrative Resulting Agency Comment [facility] Provider URINE ORDERABLES Final Re sult * (ABNORMAL) Renal Function Panel w/o EGFR (03/20/2025 7:15 AM EST) [facility] Glucose 153 BUN 14 CO2 25(A) 13 - 22 mmol/L Creatinine 1.20 Potassium 4.2 Sodium 137 Chloride 103 Phosphorus 3.8 2.5 - 4.9 mg/dL Calcium 9.7 EGFR 67 mg/dL Albumin 4.4 3.5 - 5.0 g/dL Blood Narrative Resulting Agency Comment [facility] Provider LAB BLOOD ORDERABLES Denisse l Result * (ABNORMAL) CBC and differential (03/20/2025 7:15 AM EST) [facility] Hemoglobin 13.3(A) 13.5 - 17.5 g/dL [...] 8.5 10^3/mL Blood Narrative Resulting Agency Comment [facility] Historical Provider LAB BLOOD ORDERABLES Denisse l Result * Hepatic Function Panel (03/20/2025 7:15 AM EST) Bilirubin, Direct 0.2 Bilirubin, Indirect 0.4 Alkaline Phosphatase 71 ALT 19 AST 21 Total Bilirubin 0.6 Total Protein 7.1 Plasma Narrative Resulting Agency Comment [facility] Historical Provider LAB BLOOD ORDERABLES Denisse l Result documented in this encounter Visit Diagnoses Not on filedocumented in this encounter Additional Health Concerns Infection Onset Date Last Indicated Resolved Time C. difficile 01/28/2025 01/28/2025 04/28/2025 9:36 PM EST Assessment Noted Time PHQ-9 Depression Total Score: 2 12/11/19 9:00 AM EDT documented as of this encounter Care Teams Purchasing Coordinator Relationship Specialty Start Date End Date Enedina Mcguire NP [address] [place] [address] PCP - General Internal Medicine 10/05/24 Maureen Pantoja, ЮЛИЯ Txp Post Coordinator Transplant Hepatology 10/28/24 Chris Orosco MD [address] [place] [address] [place] [address] Consulting Physician Transplant Hepatology 02/26/25 documented as of this encounter
--- OUTSIDE RECORDS SUMMARY | 2025-04-29 10:51 | XMS_ITS | Encounter Summary ---
Author Organization [facility] Address [address] [place] [address] Care Team Providers Care Seamstress Fitter Name Role Phone Enedina Mcguire NP Primary Care Provider + [phone] Alicia Rankin RN Unavailable Unavail able Chris Orosco MD Unavailable [phone] Source Comments This information has been disclosed [...] release of HIV test results or diagnoses. [id number] Health Reason for Visit * Reason Comments Results Medication Dose Change Encounter Details Date Type Department Care Team (Late st Contact Info) Description 03/10/2025 Telephone [facility] Liver Transplant at [address] [address] Alicia Rankin, ЮЛИЯ Results; Medication [...] Recorded In the past 12 months has [employer] electric, gas, oil, or water company threatened [...] Weekly labs. Dose updated. Patient notified via [employer]. * Alicia Rankin RN - 03/16/2025 9:47 [...] for therapeutic drug monitoring S/P liver transplant ([facility]) Hypomagnesemia Disorders of magnesium metabolism Kidney transplant recipient Hypertension, unspecified type Gastroesophageal reflux disease, unspecified whether esophagitis present documented in this encounter Additional Health Concerns Infection Onset Date Last Indicated Resolved Time C. difficile 01/28/2025 01/28/2025 04/28/2025 9:36 PM EST Assessment Noted Time PHQ-9 Depression Total Score: 2 12/11/19 25 9:00 AM EDT documented as of this encounter Care Teams Seamstress Fitter Relationship Specialty Start Date End Date Enedina Mcguire NP [address] [place] [address] PCP - General Internal Medicine 10/05/24 Alicia Rankin RN Txp Post Coordinator Transplant Hepatology 10/28/24 Chris Orosco MD [address] [place] [address] [address] [place] [address] Consulting Physician Transplant Hepatology 02/26/25 documented as of this encounter
--- OUTSIDE RECORDS SUMMARY | 2025-04-29 10:51 | XMS_ITS | Encounter Summary ---
Author Organization [facility] Address [address] [place] [address] Care Team Providers Care Instrument Sterilizer Name Role Phone Enedina Mcguire NP Primary Care Provider + [phone] Maureen Pantoja RN Unavailable Unavail able Chris Orosco MD Unavailable [phone] Source Comments This information has been disclosed [...] release of HIV test results or diagnoses. [id number] Encounter Details Date Type Department Care Team (Late st Contact Info) Description 03/10/2025 Chart Note [facility] Liver Transplant at [address] [address] Marlene Ro MA 03/10 Labs entered from [facility] Lab Social History Tobacco Use Types [...] Recorded In the past 12 months has [employer] electric, gas, oil, or water company threatened [...] not included. 03/10 Labs entered from [facility] documented [...] Phosphatidylethanol (PEth) Positive 413 Whole Blood Result [facility] Provider MD LAB BLOOD ORDERABLES Denisse l Result * Tacrolimus level (03/10/2025 9:29 AM EDT) Tacrolimus Lvl 14.5 6 - 15 ng/mL Whole Blood Result [facility] MD LAB BLOOD ORDERABLES Denisse l Result * Cytomegalovirus DNA, Quant, RT PCR (03/10/2025 9:29 AM EDT) CMV Quant DNA PCR (Plasma) Negative Plasma Result [facility] MD LAB BLOOD ORDERABLES Denisse l Result * Creatinine, urine, random (03/10/2025 9:29 AM EDT) Creatinine, Urine 94 Urine Narrative Resulting Agency Comment [facility] Lab Result [facility] Provider URINE ORDERABLES Final Re sult * Urinalysis w/Rfl to Microscopic (03/10/2025 9:29 AM EDT) Pathologist [facility] Glucose, UA Negative Negative Ketones, UA Negative Negative Blood, UA Negative Negative Bilirubin, UA Negative Negative Urobilinogen, UA Normal Normal Protein, UA Negative Negative Nitrite, UA Negative Negative pH, UA 5.5 4.5 - 8.0 Specific [place], UA 1.015 1.005 - 1.030 Clarity, UA Clear Clear Color, UA Yellow Light Yellow, Yellow Urine Narrative Resulting Agency Comment [facility] Lab Result [facility] Provider URINE ORDERABLES Final Re sult * Urine Protein, Tot, Random (w/o Creat) (03/10/2025 9:29 AM EDT) Total Protein, Ur 21.0 Urine Narrative Resulting Agency Comment [facility] Lab [facility] Provider MD URINE ORDERABLES Final Re sult * (ABNORMAL) Magnesium (03/10/2025 9:29 AM EDT) Pathologist [facility] Magnesium 0.9(A) 1.6 - 2.4 mg/dL Plasma Narrative Resulting Agency Comment [facility] Lab Result [facility] Provider MD LAB BLOOD ORDERABLES Denisse l Result * Hepatic Function Panel (03/10/2025 9:29 AM EDT) Pathologist [facility] Bilirubin, Direct 0.2 Bilirubin, Indirect 0.5 Alkaline Phosphatase 102 ALT 28 AST 26 Total Bilirubin 0.7 Total Protein 6.7 Plasma Narrative Resulting Agency Comment [facility] Lab Result [facility] LAB BLOOD [...] Narrative Resulting Agency Comment [facility] Lab Result [facility] LAB BLOOD [...] 5.6 10^3/mL Blood Narrative Resulting Agency Comment [facility] Lab us Historical Provider LAB BLOOD ORDERABLES Denisse l Result documented in this encounter Visit Diagnoses Not on filedocumented in this encounter Additional Health Concerns Infection Onset Date Last Indicated Resolved Time C. difficile 01/28/2025 01/28/2025 04/28/2025 9:36 PM EST Assessment Noted Time PHQ-9 Depression Total Score: 2 12/11/19 9:00 AM EDT documented as of this encounter Care Teams Instrument Sterilizer Relationship Specialty Start Date End Date Enedina Mcguire NP [address] [place] [address] PCP - General Internal Medicine 10/05/24 Maureen Pantoja RN Txp Post Coordinator Transplant Hepatology 10/28/24 Chris Orosco MD [address] [place] [address] [address] [place] [address] Consulting Physician Transplant Hepatology 02/26/25 documented as of this encounter
--- OUTSIDE RECORDS SUMMARY | 2025-04-29 10:51 | XMS_ITS | Encounter Summary ---
Author Organization [facility] Address [address] [place] [address] Care Team Providers Care Account Consultant Name Role Phone Enedina Mcguire NP Primary Care Provider + [phone] Maureen Pantoja RN Unavailable Unavail able Chris Orosco MD Unavailable [phone] Source Comments This information has been disclosed [...] release of HIV test results or diagnoses. [id number] Encounter Details Date Type Department Care Team (Late st Contact Info) Description 03/10/2025 Telephone [facility] Liver Transplant at [address] [address] Marlene Ro MA Social History Tobacco Use Types Packs/Day Years Used Date Smoking Tobacco: Former Cigarettes Smokeless Tobacco: Current Alcohol Use Standard Drinks/Week Comments Yes 0 (1 standard drink = 0.6 oz pure alcohol) History of alcohol abuse, reports no use in 3 week- typically endorses use as 4 glasses of wine a days [facility] Utilities Answer Date Recorded In the past 12 months has [employer], gas, oil, or water [employer] threatened to shut off services in [...] 03/10/2025 12:54 PM EDT Outgoing call to [facility] to verify if a CMV test [...] as of this encounter Care Teams Account Consultant Relationship Specialty Start Date End Date Enedina Mcguire NP [address] [place] [address] PCP - General Internal Medicine 10/05/24 Maureen Pantoja RN Txp Post Coordinator Transplant Hepatology 10/28/24 Chris Orosco MD [address] [place] [address] [address] [place] [address] Consulting Physician Transplant Hepatology 02/26/25 documented as of this encounter
--- OUTSIDE RECORDS SUMMARY | 2025-04-29 10:51 | XMS_ITS | Encounter Summary ---
Author Organization [facility] Address [address] [place] [address] Care Team Providers Care Mass Spectrometry Manager Name Role Phone Enedina Mcguire APRN Primary Care Provider + Reason for Visit * Reason Comments Med Refill Encounter Details Date Type Department Care Team (Late st Contact Info) Description 07/20/2022 Refill [facility] [address] [place] [id number] Lj Tapia APRN [address] [place] [address] Secondary esophageal varices without bleeding Social History [...] or training? Not on file Preferred Language Zambian 07/03/2022 Sex and Gender Information Value Date Recorded Sex Assigned at Male 08/20/2024 8:28 PM EDT Legal Sex Male 7:45 AM EDT Gender Identity Not on file Sexual Orientation Not on file documented as of this encounter Plan of Treatment Upcoming Encounters Date Type Department Care Team (Late st Contact Info) Description 05/18/2025 2:30 PM EST Office Visit [facility] INTERNAL MEDICINE [address] [place] [address] Enedina Mcguire APRN [address] [place] [id number] 05/21/2025 12:30 PM EST Office Visit [facility] PAIN MANAGEMENT [address] [facility] [address] [place] [address] Vazquez Christie PA-C [address] [facility] [address] [place] [address] documented as of this encounter Visit Diagnoses Diagnosis Secondary esophageal varices without bleeding documented in this encounter Additional Health Concerns Infection Onset Date Last Indicated Resolved Time COVID Screen (preop/placement) 07/28/2022 07/28/2022 07/29/2022 12:00 AM EDT documented as of this encounter Care Teams Mass Spectrometry Manager Relationship Specialty Start Date End Date Enedina Mcguire APRN [address] [place] [address] PCP - General Nurse Practitioner 10/27/24 documented as of this encounter
--- OUTSIDE RECORDS SUMMARY | 2025-04-29 10:51 | XMS_ITS | Encounter Summary ---
Author Organization [facility] Address [address] [place] [address] Care Team Providers Care Community Health Education Coordinator Name Role Phone Enedina Mcguire NP Primary Care Provider + [phone] Maureen Pantoja RN Unavailable Unavail able Chris Orosco MD Unavailable [phone] Source Comments This information has been disclosed [...] release of HIV test results or diagnoses. [id number] Reason for Visit * Reason Comments Medication Refill Encounter Details Date Type Department Care Team (Late st Contact Info) Description 03/12/2025 Refill [facility] Liver Transplant at [address] [address] Lydia Sanchez MD [address] [place] [address] Liver[place] [address] Encounter for therapeutic drug monitoring; S/P liver transplant ([facility]); Hypomagnesemia; Kidney transplant recipient; Hypertension, [...] glasses of wine a days [facility] Utilities Answer Date Recorded In the past 12 months has th e [employer], [employer], oil, or water company threatened to shut [...] documented as of this encounter Care Teams Community Health Education Coordinator Relationship Specialty Start Date End Date Enedina Mcguire NP [address] [place] [address] PCP - General Internal Medicine 10/05/24 Maureen Pantoja, ЮЛИЯ Txp Post Coordinator Transplant Hepatology 10/28/24 Chris Orosco MD [address] [place] [address] [place] [address] Consulting Physician Transplant Hepatology 02/26/25 documented as of this encounter
--- OUTSIDE RECORDS SUMMARY | 2025-04-29 10:51 | XMS_ITS | Encounter Summary ---
Author Organization [facility] Address [address] [place] [address] Care Team Providers Care Sheriff'S Officer Name Role Phone Enedina Mcguire APRN Primary Care Provider + Reason for Visit * Reason Comments Med Refill Encounter Details Date Type Department Care Team ([facility] st Contact Info) Description 03/16/2025 Refill [facility] INTERNAL MEDICINE [address] [place] [address] Enedina Mcguire APRN [address] [place] [address] Erectile dysfunction, unspecified erectile dysfunction type Social [...] Recorded In the past 12 months has [employer] gas, oil, or water [employer] threatened to shut off [...] Measure Score 0 10/02/2022 [facility] - Occupational Stress Questionnaire Answer [...] [facility] INTERNAL MEDICINE [address] [place] [address] Enedina Mcguire, RAMBO [address] [place] [address] 05/21/2025 12:30 PM EST Office Visit [facility] PAIN MANAGEMENT [address] [facility] [address] [place] [address] Vazquez Christie PA-C [address] [facility] [address] [place] [address] documented as of this encounter Visit Diagnoses Diagnosis Erectile dysfunction, unspecified erectile dysfunction type documented in this encounter Additional Health Concerns Assessment Noted Time PHQ-2 Depression Total Score: 1 12/31/19 24 3:25 PM EDT documented as of this encounter Care Teams Sheriff'S Officer Relationship Specialty Start Date End Date Enedina Mcguire APRN [address] [place] [address] PCP - General Nurse Practitioner 10/27/24 documented as of this encounter
--- OUTSIDE RECORDS SUMMARY | 2025-04-29 10:51 | XMS_ITS | Encounter Summary ---
Author Organization [facility] Address [address] [place] [address] Care Team Providers Care Tank Refinisher Name Role Phone Enedina Mcguire NP Primary Care Provider + [phone] Maureen Pantoja RN Unavailable Unavail able Chris Orosco MD Unavailable [phone] Source Comments This information has been disclosed [...] release of HIV test results or diagnoses. [id number] Health Reason for Visit * Reason Comments Critical Lab Results Encounter Details Date Type Department Care Team (Late st Contact Info) Description 03/10/2025 Telephone [facility] Liver Transplant at [address] [place] [address] Marisela Martinez MA Critical Lab Results [...] Recorded In the past 12 months has [employer], gas, oil, or water company threatened [...] EDT Shivani called from pts outpt lab [facility] to report that pt has a critical [...] as of this encounter Care Teams Tank Refinisher Relationship Specialty Start Date End Date Enedina Mcguire NP [address] [place] [address] PCP - General Internal Medicine 10/05/24 Maureen Pantoja, RN Txp Post Coordinator Transplant Hepatology 10/28/24 Chris Orosco MD [address] [place] [address] [address] [place] [address] Consulting Physician Transplant Hepatology 02/26/25 documented as of this encounter
--- OUTSIDE RECORDS SUMMARY | 2025-04-29 10:51 | XMS_ITS | Encounter Summary ---
Author Organization [facility] Address [address] [place] [address] Care Team Providers Care Hog Dropper Name Role Phone Enedina Mcguire NP Primary Care Provider + [phone] Maureen Pantoja RN Unavailable Unavail able Chris Orosco MD Unavailable [phone] Source Comments This information has been disclosed [...] release of HIV test results or diagnoses. [id number] Encounter Details Date Type Department Care Team (Late st Contact Info) Description 03/10/2025 Telephone [facility] Kidney Transplant at [address] [address] Lizeth Walden, RN Social History Tobacco Use Types Packs/Day Years Used Date Smoking Tobacco: Former Cigarettes Smokeless Tobacco: Current Alcohol Use Standard Drinks/Week Comments Yes 0 (1 standard drink = 0.6 oz pure alcohol) History of alcohol abuse, reports no use in 3 week- typically endorses use as 4 glasses of wine a days [facility] Utilities Answer Date Recorded In the past 12 months has [employer], gas, oil, or water [employer] threatened to shut off services in your [...] documented as of this encounter Care Teams Hog Dropper Relationship Specialty Start Date End Date Enedina Mcguire NP [address] [place] [address] PCP - General Internal Medicine 10/05/24 Maureen Pantoja, ЮЛИЯ Txp Post Coordinator Transplant Hepatology 10/28/24 Chris Orosco MD [address] [place] [address] [address] [place] [address] Consulting Physician Transplant Hepatology 02/26/25 documented as of this encounter
--- OUTSIDE RECORDS SUMMARY | 2025-04-29 10:51 | XMS_ITS | Encounter Summary ---
Author Organization [facility] Address [address] [place] [address] Care Team Providers Care Laundry Superintendent Name Role Phone Enedina Mcguire NP Primary Care Provider + [phone] Maureen Pantoja RN Unavailable Unavail able Chris Orosco MD Unavailable [phone] Source Comments This information has been disclosed [...] release of HIV test results or diagnoses. [id number] Health Reason for Visit * Reason Comments Critical Lab Results Encounter Details Date Type Department Care Team (Late st Contact Info) Description 03/13/2025 Telephone [facility] Liver Transplant at [address] [address] Mitzy Gill MA Critical Lab [...] Recorded In the past 12 months has [employer], gas, oil, or water company threatened [...] - 03/13/2025 8:23 AM EDT Ashley from [facility] lab called to report critical lab [...] as of this encounter Care Teams Laundry Superintendent Relationship Specialty Start Date End Date Enedina Mcguire NP [address] [place] [address] PCP - General Internal Medicine 10/05/24 Pantoja, Maureen Leeanna, RN Txp Post Coordinator Transplant Hepatology 10/28/24 Chris Orosco MD [address] [facility] [address] [place] [address] Consulting Physician Transplant Hepatology 02/26/25 documented as of this encounter
--- OUTSIDE RECORDS SUMMARY | 2025-04-29 10:51 | XMS_ITS | Encounter Summary ---
[facility] Address [address] [place] [address] Care Team Providers Care Field Crops Harvest Machine Operator Name Role Phone Enedina Mcguire APRN Primary Care Provider + Encounter Details Date Type Department Care Team (Late st Contact Info) Description 03/02/2025 Telephone [facility] [address] [address] Georgina Rainey MA Social History Tobacco Use Types Packs/Day Years Used Date Smoking Tobacco: Former Cigarettes 4 20 Passive Smoke Exposure: Past Smokeless Tobacco: Current Comments:MARIJUANA USE ABOUT 2X PER WEEK - reports no use 08-05-2024 Alcohol Use Standard Drinks/Week Comments Not Currently 0 (1 standard drink = 0.6 oz pure alcohol) 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 [facility] Utilities Answer Date Recorded In the past 12 months has [employer], [employer], oil, or water [employer] threatened to shut off services in your [...] 0 10/02/2022 [facility] - Occupational Stress Questionnaire Answer Date [...] GED or equivalent No 07/09/2024 Preferred Language Welsh 07/09/2024 PHQ-2 Answer Date Recorded Patient Health [...] [facility] [address] [place] [address] Enedina Mcguire, CORRECTION OFFICER [address] [place] [address] 05/21/2025 12:30 PM EST Office Visit [facility] [address] [address] Vazquez Christie PA-C [address] [address] documented as of this encounter Visit Diagnoses Not on filedocumented in this encounter Additional Health Concerns Assessment Noted Time PHQ-2 Depression Total Score: 1 12/31/19 24 3:25 PM EDT documented as of this encounter Care Teams Field Crops Harvest Machine Operator Relationship Specialty Start Date End Date Enedina Mcguire APRN [address] [place] [address] PCP - General Nurse Practitioner 10/27/24 documented as of this encounter
--- OUTSIDE RECORDS SUMMARY | 2025-04-29 10:53 | XMS_ITS | Clinical Summary ---
Author Organization Healthcare Address [address] [place] [address] Care Team Providers Care Kiln Firer Name Role Phone Lj Tapia Rohini RICKS Unavailable [phone] Enedina Mcguire APRN Primary Care Provider + [...] 07/14/2024 How often do you attend [facility] or mu-ism services? Patient unable to answer 07/14/2024 Do [...] Patient Health Questionnaire-2 Score 2 09/29/2024 [facility] - [...] drink first t deborah in the morning (EYE-SETTER AUTOMAT[employer] SPINNING LATHE) to steady your nerves or to get rid of a hangover? 0 07/19/2024 CAGE Questionnaire Score 2 025 Utilities Answer Date Recorded In the past 12 months has th [employer], gas, oil, or water company threatened to [...] Years) (1 of 2 - PCV) 2002 [facility]-Zoster Vaccines (1 of 2) 2002 09/13/2010 [facility]-Hepatitis B Vaccines (2 of 3 - 19+ 3-dose series) 10/11/2010 09/13/2010 [facility]-Varicella Vaccines (2 of 2 - 13+ 2-dose series) 10/11/2010 09/13/2010 [id number] Vaccine (4 - 2024- season) 2025 03/17/2021, 07/25/2020, 06/27/2020 [facility]-Influenza Vaccine (#1) 2025 03/12/2024, [facility]- SDOH Screenings 01/14/2025 [facility]-Adult SDOH Screenings 01/14/2025 07/14/2024 [facility]-Depression Screening 09/29/2025 09/29/2024, 09/11 [facility]-DTaP,Tdap,and Td Vaccines (3 - Td or Tdap) 06/03/2028 06/03/2018, 09/13/2010 [facility]-Abdominal Aortic Aneurysm (AAA) Screening 2048 07/28/2024, 07/28/2024, 07/29/2022, Additional history exists [facility]-Hepatitis C Screening Completed 2024, 11/14/2023, 08/01/2022 [facility]-Obesity Intervention Completed 025, 08/25/2024, 07/11/2024, Additional history exists [facility]-HIV Screening Completed 11/25/2024, , 10/07/2024, Additional history exists HPV Vaccines (No Doses Required) Completed [facility]-HIB Vaccines Aged Out No longer e ligible based on patient's age to complete this topic [facility]-IPV Vaccines Aged Out No longer e ligible based on patient's age to complete this topic [facility]-Rotavirus Vaccines Aged Out No lo nger eligible based on patient's age to complete this topic Medical Devices Implanted Type Area Stack Clerk Device Identifier Shelf Expiration Date Model / Serial / Lot Concerto Alcova Coil-07/03/2022 Implanted:06/15 by Timmy Brunner MD (Quantity not on file) Coil Abdomen Description:Multiple Coil Co ncerto Pgla Alcova Detach COILS implanted on 07/03/2022 by Timmy Brunner MD at [facility]--info can be found in Care Everywhere for [facility] as of 11/15/23 Dona Coil-07/03/2022 Implanted:06/15 by Timmy Brunner MD (Quantity not on file) Coil Abdomen [employer] Description:Coil Emb Dona 3.7/Implanted: Qty: 1 on 07/03/2022 by Timmy Brunner MD at [facility] Plate Plate N/A: Neck Plug Vasc Anton Emb Amplatzer Implanted:06/15 by Timmy Brunner MD (Quantity not on file) Plug Other Vein / / [id number] Description:Plug Vasc Anton Em b Ampltz .027 [id number] - [id number] Implanted: Qty: 1 on 07/03/2022 by Timmy Brunner MD at [facility] Stent Gastro Panc 5fr 5cm - [id number] Implanted:Qty: 1 on 11/20/2023 by Devang Mcghee, ЮЛИЯ at [facility] Pancreas [id number] 08/13/2026 [id number] / / [id number] Procedures Procedure Name Priority Date/Time Associated Diagnosis [...] Reactive Non Reactive 07/14/2024 5:31 PM EST [facility] Comment:Screening for HIV 1 & 2 antibodies, and P24 antigen is NONREACTIVE. No confirmatory testing is required. Blood Venous blood specimen / Unknown Venipuncture / Unknown 07/14/2024 4:31 PM EST 07/14/2024 4:56 PM EST Laureano Salinas APRN, [facility] BLOOD ORDERA BLES Final Result Performing Organization Address City/[facility]/ZIP Co de Phone Number HEALTHCARE LAB [address] [place] [address] * Hepatitis C Antibody (07/14/2024 4:31 PM EST) [facility] Signature Hepatitis C Antibody Negative Negative 07/14/2024 5:27 PM EST [facility] Blood Venous blood specimen / Unknown Venipuncture / Unknown 07/14/2024 4:31 PM EST 07/14/2024 4:54 PM EST Laureano Salinas APRN, [facility] BLOOD ORDERA BLES Final Result Performing Organization Address City/[facility] Co de Phone Number [facility]ALTHCARE [facility] [address] [place] [address] from Last 3 Months or Most Recently Relevant to Health Maintenance Insurance [facility] Advance Directives * Full Code (Latest Code Status on File) Date Activated Date Inactivated Comments 07/11/2024 11:04 PM 07/23/2024 6:27 PM Question Answer Comments Patient has decision-making capacity? Yes * Full Code Date Activated Date Inactivated Comments 11/14/2023 10:15 PM 11/27/2023 9:08 PM Question Answer Comments Patient has decision-making capacity? Yes Care Teams Kiln Firer Relationship Specialty Start Date End Date Enedina Mcguire APRN [address] [place] [address] PCP - General 12/04/22 Lj Tapia APRN [address] [place] [address] Referring Physician Gastroenterology 07/18/22
--- OUTSIDE RECORDS SUMMARY | 2025-04-29 10:53 | XMS_ITS | Clinical Summary ---
Author Organization [facility] Address [address] [place] [address] Care Team Providers Care Weigher And Charger Name Role Phone Enedina Mcguire APRN Primary [...] CHLORIDE PO Take by mouth. Activ e vitamin D (ERGOCALCIFEROL) 1.25 MG (93291 UT) capsule capsuleIndications :Vitamin D deficiency Take 1 capsule by mouth 1 (One) Time Per Week. 12 capsule 1 02/18/20 25 Active mycophenolate (CELLCEPT) 250 MG capsule [...] Spasms. 30 tablet 1 03/20/20 25 Active FLUoxetine (PROzac) 20 MG capsule Take 1 capsule by mouth Daily. 90 capsule 04/08/20 25 Active NIFEdipine XL (PROCARDIA XL) 30 MG 24 hr tablet Take 1 tablet by mouth Daily. 90 tablet 04/20/20 25 Active Testosterone Cypionate 200 MG/ML kitIndications:Low testosterone in male Inject 1 mL into the appropriate muscle as directed by prescriber 1 (One) Time Per Week. 4 kit 04/20/20 25 Active Syringe 25G X 5/8 3 ML miscIndications:Lo w testosterone in male Use 1 each 1 (One) Time Per Week. 12 each 1 04/20/20 25 Active FLUoxetine (PROzac) 20 MG capsule Take 1 capsule by mouth Daily. 10/18/19 25 025 Discontin ued(Reord er) NIFEdipine XL (PROCARDIA XL) 30 MG 24 hr tablet Take 1 tablet by mouth Daily. 02/16/20 25 025 Discontin ued(Reord er) Syringe 25G X 5/8 3 ML miscIndications:Lo w testosterone in male Use 1 each 1 (One) Time Per Week. 12 each 1 02/24/20 25 025 Discontin ued(Reord er) Testosterone Cypionate 200 MG/ML kitIndications:Low testosterone in male Inject 1 mL into the appropriate muscle as directed by prescriber 1 (One) Time Per Week. 4 kit 03/20/20 25 025 Discontin ued(Reord er) Active Problems [...] Encounters Date Type Department Care Team Description 04/18/2025 Refill [facility] [address] [place] [phone] Enedina Mcguire APRN Low testosterone in male 04/15/2025 Refill [facility] [address] [place] [phone] Enedina Mcguire APRN Low testosterone in male 04/07/2025 Refill [facility] [address] [place] [phone] Enedina Mcguire APRN 03/19/2025 11:30 AM EST Outside Facility Service [facility] [address] [phone] Tye Song MD 03/19/2025 Refill [facility] [address] [place] [phone] Enedina Mcguire APRN Low testosterone in male 03/19/2025 Documentation [facility] [address] [facility] [address] [place] [phone] Tye Song MD 03/16/2025 Refill [facility] [address] [place] [phone] Enedina Mcguire APRN Erectile dysfunction, unspecified erectile dysfunction type 03/15/2025 Refill [facility] [address] [place] [phone] Enedina Mcguire, RAMBO Acquired hypothyroidism 03/03/2025 1:45 PM EDT Office Visit [facility] [address] [facility] [address] [place] [address] Vazquez Christie PA-C Occipital neuralgia of right side (Primary Dx); Cervical spondylosis without myelopathy; Cervical pain (neck); Long-term use of high-risk medication; Cervical radiculopathy; Therapeutic drug monitoring; Chronic pain syndrome 03/03/2025 Travel 03/02/2025 Telephone [facility] [address] [address] Georgina Rainey MA 02/23/2025 Prior Authorization [facility] [address] [place] [phone] Enedina Mcguire APRN 02/23/2025 Results Follow-Up [facility] [address] [place] [phone] Enedina Mcguire, FLIGHT ENGINEER 02/20/2025 Telephone [facility] [address] [place] [phone] Enedina Mcguire APRN Results 02/20/2025 Telephone [facility] [address] [phone] Georgina Rainey MA 02/19/2025 7:45 AM EDT Outside Facility Service [facility] [address] [phone] Tye Song MD 02/19/2025 Documentation [facility] [address] [phone] Tye Song MD 02/17/2025 3:15 PM EDT Office Visit [facility] [address] [place] [phone] Enedina Mcguire, FLIGHT ENGINEER Encounter for follow-up (Primary Dx); Kidney transplant recipient; Liver transplant recipient; Vitamin D deficiency; Low testosterone in male; History of systemic steroid therapy 02/17/2025 Telephone [facility] [address] [place] [phone] Enedina Mcguire APRN 02/17/2025 Travel 02/11/2025 Telephone [facility] [address] [phone] Tye Song MD [facility]- INJECTION SCHEDULE from [...] Grandfather Elton Pascal Stroke Maternal Grandmother Sudha McNail Cancer Mother Elle Anderson Osteoarthritis Mother Elle [...] Recorded In the past 12 months has [employer], gas, oil, or water [employer] threatened to shut off services in your [...] Office Visit [facility] [address] [place] [address] Enedina Mcguire, RAMBO [address] [place], [place] [phone] 05/21/2025 12:30 PM EST Office Visit [facility] [address] [facility] [address] [place] [address] Vazquez Christie PA-C [address] [facility] [address] [place] [address] Health Maintenance Due Date Last [...] 0-49 Discontinued Medical Devices Implanted Type Area Pressure Testing Technician Device Identifier Shelf Expiration Date Model / Serial / Lot Coil Concerto Pgla Hel Detach Sys 10mm 30cm - [id number] Implanted:Qty: 1 on 07/03/2022 by Timmy Brunner MD at [facility] Implant Left: Vein EV3 A [employer] [id number] / / [id number] Description:Coil is in the s hort gastric vein Coil Concerto Nyl [place] Detach Sys 10mm 30cm - [id number] Implanted:Qty: 1 on 07/03/2022 by Timmy Brunner MD at [facility] Implant Left: Vein EV3 A [employer] [id number] / / [id number] Description:Short gastric ve in Coil Concerto Nyl [place] Detach Sys 10mm 30cm - [id number] Implanted:Qty: 1 on 07/03/2022 by Timmy Brunner MD at [facility] Implant Left: Vein EV3 A [employer] [id number] / / [id number] Description:Short gasrtic ve in Coil Concerto Nyl [place] Detach Sys 10mm 30cm - [id number] Implanted:Qty: 1 on 07/03/2022 by Timmy Brunner MD at [facility] Implant Left: Vein EV3 A [employer] [id number] / / [id number] Description:Short gastric ve in Coil Concerto Nyl [place] Detach Sys 8mm 30cm - [id number] Implanted:Qty: 1 on 07/03/2022 by Timmy Brunner MD at [facility] Implant Left: Vein EV3 A [employer] [id number] / / [id number] Description:Short gastric ve in Coil Concerto Nyl [place] Detach Sys 8mm 30cm - [id number] Implanted:Qty: 1 on 07/03/2022 by Timmy Brunner MD at [facility] Implant Left: Vein EV3 A [employer] CO [id number] / / [id number] Description:Short gastric ve in Sys Del Liq Emb Trufill Nbca 1g Vl - [id number] Implanted:Qty: 1 on 07/03/2022 by Timmy Brunner MD at [facility] Implant Left: Vein [facility] [id number] / / [id number] Description:Short gastric ve in Plug Vasc Anton Emb Ampltz .027 [id number] - [id number] Implanted:Qty: 1 on 07/03/2022 by Timmy Brunner MD at [facility] Implant Left: Vein [employer] [id number] / / [id number] Description:Coronary vein Coil Concerto Nyl [place] Detach Sys 8mm 30cm - [id number] Implanted:Qty: 1 on 07/03/2022 by Timmy Brunner MD at [facility] Implant Left: Vein EV3 A [employer]OV[employer]ov[place] [employer] [id number] / / [id number] Description:CORONARY VEIN Gelatin Emb Embocube 5.02mm 50mg Red - [id number] Implanted:Qty: 1 on 07/03/2022 by Timmy Brunner MD at [facility] Implant Left: Vein [employer] [id number] / / [id number] Description:SHORT GASTRIC VE IN Coil Emb Dona 3.7/Lp .035in 14cm 12mm - [id number] Implanted:Qty: 1 on 07/03/2022 by Timmy Brunenr MD at [facility] Implant Left: Vein [employer] [id number] / / [id number] Description:SHORT GASTRIC VE IN Coil Concerto Pgla [place] Detach Sys 12mm 30cm - [id number] Implanted:Qty: 1 on 07/03/2022 by Timmy Brunner MD at [facility] Implant Left: Vein EV3 A [employer]EN CO [id number] / / [id number] Description:Short gastric ve in Coil Concerto Nyl [place] Detach Sys 8mm 30cm - [id number] Implanted:Qty: 1 on 07/03/2022 by Timmy Brunner MD at [facility] Implant Left: Vein EV3 A COVIDIEN CO [id number] / / [id number] Description:SHORT GASTRIC VE IN Coil Concerto Nyl [place] Detach Sys 8mm 30cm - [id number] Implanted:Qty: 1 on 07/03/2022 by Timmy Brunner MD at [facility] Implant Left: Vein EV3 A [employer] CO [id number] / / [id number] Description:Short gastric ve in Coil Concerto Nyl [place] Detach Sys 8mm 30cm - [id number] Implanted:Qty: 1 on 07/03/2022 by Timmy Brunner MD at [facility] Implant Left: Vein EV3 A [employer] CO [id number] / / [id number] Description:Short gastric ve in Coil Concerto Pgla Hel Detach Sys 14mm 40cm - [id number] Implanted:Qty: 1 on 07/03/2022 by Timmy Brunner MD at [facility] Implant Left: Vein EV3 A [employer] CO [id number] / / [id number] Description:Short gastric ve in Coil Concerto Pgla Hel Detach Sys 14mm 40cm - [id number] Implanted:Qty: 1 on 07/03/2022 by Timmy Brunner MD at [facility] Implant Left: Vein EV3 A [employer] CO [id number] / / [id number] Description:Short gastric ve in Coil Concerto Pgla [place] Detach Sys 14mm 30cm - [id number] Implanted:Qty: 1 on 07/03/2022 by Timmy Brunner MD at [facility] Implant Left: Vein EV3 A [employer] CO [id number] / / [id number] Description:Short gastric ve in Coil Concerto Pgla [place] Detach Sys 14mm 30cm - [id number] Implanted:Qty: 1 on 07/03/2022 by Timmy Brunner MD at [facility] Implant Left: Vein EV3 A [employer]EN CO [id number] / / [id number] Description:Short gastric ve in Coil Concerto Pgla [place] Detach Sys 14mm 30cm - [id number] Implanted:Qty: 1 on 07/03/2022 by Timmy Brunner MD at [facility] Implant Left: Vein EV3 A [employer]EN CO [id number] / / [id number] Description:Short gastric ve in Procedures Procedure Name [...] ve Non-Reacti ve 07/09/2024 2:07 PM EST [facility] Hep A IgM Non-Reacti ve Non-Reacti ve 07/09/2024 2:07 PM EST [facility] Hep B C IgM Non-Reacti ve Non-Reacti ve 07/09/2024 2:07 PM EST [facility] Hepatitis C Ab Non-Reacti ve Non-Reacti ve 07/09/2024 2:07 PM EST [facility] Blood Line / Unknown 07/08/2024 10 :33 PM EST 07/08/2024 10:42 PM EST Narrative [facility] - 07/09/2024 2:07 PM EST Results may be falsely decreased if patient taking Biotin. Chiquis JACOME LAB BLOOD ORDERABLES Final Resu lt [facility]
[address] [place] [address], * (ABNORMAL) Lipid Panel (10/15/2023 4:16 PM EDT) Total Cholesterol 234(H) 0 - 200 mg/dL 10/16/2023 2:33 AM EDT [facility] Triglycerides 203(H) 0 - 150 mg/dL 10/16/2023 2:33 AM EDT [facility] HDL Cholesterol 41 40 - 60 mg/dL 10/16/2023 2:33 AM EDT [facility] LDL Cholesterol 156(H) 0 - 100 mg/dL 10/16/2023 2:33 AM EDT [facility] VLDL Cholesterol 37 5 - 40 mg/dL 10/16/2023 2:33 AM EDT [facility] LDL/HDL Ratio 3.72 10/16/2023 2:33 AM EDT [facility] Blood Venipuncture / Unknown 10/15/2023 4:16 PM EDT 10/15/2023 4:16 PM EDT Narrative [facility] - 10/16/2023 2:33 AM EDT Cholesterol [...] APRN LAB BLOOD ORDERABLES Fin al Result [facility]
[address] [place] [address], from Last 3 Months or Most Recently [...] Of Support Discussed With: Patient Care Teams Weigher And Charger Relationship Specialty Start Date End Date Enedina Mcguire APRN [address] [place] [address] PCP - General Nurse Practitioner 10/27/24
--- OUTSIDE RECORDS SUMMARY | 2025-04-29 10:53 | XMS_ITS | Encounter Summary ---
Author Organization [facility] Address [address] [place] [address] Care Team Providers Care Onion Tier Name Role Phone Enedina Mcguire APRN Primary Care Provider + Reason for Visit * Reason Onset Date Comments Med Refill 04/18/2025 Encounter Details Date Type Department Care Team ([facility] st Contact Info) Description 04/18/2025 Refill [facility] [address] [place] [address] Enedina Mcguire APRN [address] [place] [address] Low testosterone in male Social [...] Recorded In the past 12 months has [employer], gas, oil, or water [employer] threatened to shut off services in your [...] Measure Score 0 10/02/2022 [facility] - Occupational Stress [...] Visit [facility] [address] [place] [phone] Enedina Mcguire APRN [address] [place] [phone] 05/21/2025 12:30 PM EST Office Visit [facility] [address] [phone] Vazquez Christie PA-C 1760 [facility] [address] [place] [address] documented as of this encounter Visit Diagnoses Diagnosis Low testosterone in male documented in this encounter Additional Health Concerns Assessment Noted Time PHQ-2 Depression Total Score: 1 12/31/19 24 3:25 PM EDT documented as of this encounter Care Teams Onion Tier Relationship Specialty Start Date End Date Enedina Mcguire APRN [address] [place] [address] PCP - General Nurse Practitioner 10/27/24 documented as of this encounter
--- OUTSIDE RECORDS SUMMARY | 2025-04-29 10:53 | XMS_ITS | Encounter Summary ---
Author Organization [facility] Address [address] [place] [address] Care Team Providers Care Pediatric Sports Medicine Specialist Name Role Phone Enedina Mcguire NP Primary Care Provider + [phone] Maureen Pantoja RN Unavailable Unavail able Chris Orosco MD Unavailable [phone] Source Comments This information has been disclosed [...] release of HIV test results or diagnoses. [id number] Encounter Details Date Type Department Care Team (Late st Contact Info) Description 03/16/2025 Chart Note [facility] Liver Transplant at [place] [id number] [facility] [address] [place] [phone] Marlene Ro MA Magnesium Level from 03/13 Social History Tobacco Use Types Packs/Day Years Used Date Smoking Tobacco: Former Cigarettes Smokeless Tobacco: Current Alcohol Use Standard Drinks/Week Comments Yes 0 (1 standard drink = 0.6 oz pure alcohol) History of alcohol abuse, reports no use in 3 week- typically endorses use as 4 glasses of wine a days [facility] Utilities Answer Date Recorded In the past 12 months has [employer], gas, oil, or water company threatened [...] as of this encounter Care Teams Pediatric Sports Medicine Specialist Relationship Specialty Start Date End Date Enedina Mcguire NP [address] [place] [address] PCP - General Internal Medicine 10/05/24 Maureen Pantoja, ЮЛИЯ Txp Post Coordinator Transplant Hepatology 10/28/24 Chris Orosco MD [address] [place] [address] [address] [place] [address] Consulting Physician Transplant Hepatology 02/26/25 documented as of this encounter
--- OUTSIDE RECORDS SUMMARY | 2025-04-29 10:53 | XMS_ITS | Encounter Summary ---
Author Organization [facility] Address [address] [place] [address] Care Team Providers Care Clinical Trial Educator Name Role Phone Enedina Mcguire NP Primary Care Provider + [phone] Maureen Pantoja RN Unavailable Unavail able Chris Orosco MD Unavailable [phone] Source Comments This information has been disclosed [...] release of HIV test results or diagnoses. [id number] Health Reason for Visit * Reason Comments Results Encounter Details Date Type Department Care Team (Late st Contact Info) Description 03/19/2025 Telephone [facility] Liver Transplant at [address] [address] Maureen Pantoja, ЮЛИЯ Results Social History Tobacco Use Types Packs/Day Years Used Date Smoking Tobacco: Former Cigarettes Smokeless Tobacco: Current Alcohol Use Standard Drinks/Week Comments Yes 0 (1 standard drink = 0.6 oz pure alcohol) History of alcohol abuse, reports no use in 3 week- typically endorses use as 4 glasses of wine a days [facility] Utilities Answer Date Recorded In the past 12 months has [employer], gas, oil, or water company threatened to [...] as of this encounter Care Teams Clinical Trial Educator Relationship Specialty Start Date End Date Enedina Mcguire NP [address] [place] [address] PCP - General Internal Medicine 10/05/24 Maureen Pantoja, ЮЛИЯ Txp Post Coordinator Transplant Hepatology 10/28/24 Chris Orosco MD [address] [place] [address] [address] [place] [address] Consulting Physician Transplant Hepatology 02/26/25 documented as of this encounter
--- OUTSIDE RECORDS SUMMARY | 2025-04-29 10:53 | XMS_ITS | Encounter Summary ---
Author Organization [facility] Address [address] [place] [address] Care Team Providers Care Windshield Technician Name Role Phone Enedina Mcguire NP Primary Care Provider + [phone] Maureen Pantoja RN Unavailable Unavail able Chris Orosco MD Unavailable [phone] Source Comments This information has been disclosed [...] release of HIV test results or diagnoses. [id number] Health Encounter Details Date Type Department Care Team (Late st Contact Info) Description 03/16/2025 Telephone [facility] Kidney Transplant at [address] [place] [address] [address] Lizeth Walden, RN Social History [...] In the past 12 months has [employer], gas, oil, or water company threatened to [...] documented as of this encounter Care Teams Windshield Technician Relationship Specialty Start Date End Date Enedina Mcguire NP [address] [place] [address] PCP - General Internal Medicine 10/05/24 Maureen Pantoja, ЮЛИЯ Txp Post Coordinator Transplant Hepatology 10/28/24 Chris Orosco MD [address] [place] [address] [address] [place] [address] Consulting Physician Transplant Hepatology 02/26/25 documented as of this encounter
--- OUTSIDE RECORDS SUMMARY | 2025-04-29 10:54 | XMS_ITS | Encounter Summary ---
Author Organization [facility] Address [address] [place] [address] Care Team Providers Care Psychological Science Professor Name Role Phone Enedina Mcguire NP Primary Care Provider + [phone] Maureen Pantoja RN Unavailable Unavail able Chris Orosco MD Unavailable [phone] Source Comments This information has been disclosed [...] release of HIV test results or diagnoses. [id number] Health Reason for Visit * Reason Comments Results Encounter Details Date Type Department Care Team (Late st Contact Info) Description 03/06/2025 Telephone [facility] Liver Transplant at [address] [address] Maureen Pantoja, ЮЛИЯ Results Social History Tobacco Use Types Packs/Day Years Used Date Smoking Tobacco: Former Cigarettes Smokeless Tobacco: Current Alcohol Use Standard Drinks/Week Comments Yes 0 (1 standard drink = 0.6 oz pure alcohol) History of alcohol abuse, reports no use in 3 week- typically endorses use as 4 glasses of wine a days [facility] Utilities Answer Date Recorded In the past 12 months has [employer], gas, oil, or water company threatened to [...] documented as of this encounter Care Teams Psychological Science Professor Relationship Specialty Start Date End Date Enedina Mcguire NP [address] [place] [address] PCP - General Internal Medicine 10/05/24 Maureen Pantoja, ЮЛИЯ Txp Post Coordinator Transplant Hepatology 10/28/24 Chris Orosco MD [address] [place] [address] [address] [place] [address] Consulting Physician Transplant Hepatology 02/26/25 documented as of this encounter
--- OUTSIDE RECORDS SUMMARY | 2025-04-29 10:54 | XMS_ITS | Encounter Summary ---
Author Organization [facility] Address [address] [place] [address] Care Team Providers Care Escort Patients Name Role Phone Enedina Mcguire NP Primary Care Provider + [phone] Maureen Pantoja RN Unavailable Unavail able Chris Orosco MD Unavailable [phone] Source Comments This information has been disclosed [...] release of HIV test results or diagnoses. [id number] Health Encounter Details Date Type Department Care Team (Late st Contact Info) Description 03/04/[address] [facility] Liver Transplant at [address] [address] Marlene Ro MA 03/04 Labs entered from [facility] Social History Tobacco Use Types Packs/Day Years Used Date Smoking Tobacco: Former Cigarettes Smokeless Tobacco: Current Alcohol Use Standard Drinks/Week Comments Yes 0 (1 standard drink = 0.6 oz pure alcohol) History of alcohol abuse, reports no use in 3 week- typically endorses use as 4 glasses of wine a days [facility] Utilities Answer Date Recorded In the past 12 months has [employer], gas, oil, or water company threatened [...] were not included. 03/04 Labs entered from [facility] [...] Phosphatidylethanol (PEth) Positive 587 Whole Blood Result [facility] LAB BLOOD ORDERABLES Denisse l Result * Tacrolimus level (03/04/2025 11:29 AM EDT) Tacrolimus Lvl 14.6 6 - 15 ng/mL Whole Blood Result [facility] LAB BLOOD ORDERABLES Denisse l Result * Urine culture (03/04/2025 11:29 AM EDT) Pathologist [facility] Urine Culture, Comprehensive no growth after 48 hours URINE SPECIMEN / Unknown Result [facility] MICROBIOLOGY - GENERAL OR DERABLES Final Result * (ABNORMAL) Magnesium (03/04/2025 11:29 AM EDT) Pathologist [facility] Magnesium 1.4(A) 1.6 - 2.4 mg/dL Plasma Narrative Resulting Agency Comment [facility] Result [facility] LAB BLOOD ORDERABLES Denisse l Result * (ABNORMAL) Renal Function Panel w/o EGFR (03/04/2025 11:29 AM EDT) Glucose 120 BUN 18 CO2 27(A) 13 - 22 mmol/L Creatinine 1.20 Potassium 3.7 Sodium 138 Chloride 98 Phosphorus 4.4 2.5 - 4.9 mg/dL Calcium 9.4 EGFR 67 mg/dL Albumin 4.8 3.5 - 5.0 g/dL Blood Narrative Resulting Agency Comment [facility] Result [facility] LAB BLOOD ORDERABLES Denisse l Result * Creatinine, urine, random (03/04/2025 11:29 AM EDT) Creatinine, Urine 111 Urine Narrative Resulting Agency Comment [facility] Provider URINE ORDERABLES Final Re sult * (ABNORMAL) Urinalysis w/Rfl to Microscopic (03/04/2025 11:29 AM EDT) Pathologist [facility] Glucose, UA Negative Negative Ketones, UA Negative Negative Blood, UA Negative Negative Bilirubin, UA Negative Negative Urobilinogen, UA Normal Normal Protein, UA Trace(A) Negative Nitrite, UA Negative Negative pH, UA 5.5 4.5 - 8.0 Specific [place], UA 1.020 1.005 - 1.030 Clarity, UA Clear Clear Color, UA Yellow Light Yellow, Yellow Urine Narrative Resulting Agency Comment [facility] Result [facility] Provider URINE ORDERABLES Final Re sult * Vitamin D 25 hydroxy (03/04/2025 11:29 AM EDT) Pathologist [facility] Vit D, 25-Hydroxy 38.4 Serum Narrative Resulting Agency Comment [facility] Provider LAB BLOOD ORDERABLES Denisse l Result * (ABNORMAL) CBC and differential (03/04/2025 11:29 AM EDT) Pathologist [facility] Hemoglobin 13.0(A) 13.5 - 17.5 g/dL Hematocrit [...] 7.7 10^3/mL Blood Narrative Resulting Agency Comment [facility] Provider LAB BLOOD ORDERABLES Denisse l Result * Urine Protein, Tot, Random (w/o Creat) (03/04/2025 11:29 AM EDT) Total Protein, Ur 27.0 Urine Narrative Resulting Agency Comment [facility] Provider URINE ORDERABLES Final Re sult * Hepatic Function Panel (03/04/2025 11:29 AM EDT) Bilirubin, Direct 0.2 Bilirubin, Indirect 0.7 Alkaline Phosphatase 155 ALT 39 AST 47 Total Bilirubin 0.9 Total Protein 7.5 Plasma Narrative Resulting Agency Comment [facility] Result [facility] Provider LAB BLOOD ORDERABLES Denisse l Result documented in this encounter Visit Diagnoses Not on filedocumented in this encounter Additional Health Concerns Infection Onset Date Last Indicated Resolved Time C. difficile 01/28/2025 01/28/2025 04/28/2025 9:36 PM EST Assessment Noted Time PHQ-9 Depression Total Score: 2 12/11/19 25 9:00 AM EDT documented as of this encounter Care Teams Escort Patients Relationship Specialty Start Date End Date Enedina Mcguire NP [address] [place] [address] PCP - General Internal Medicine 10/05/24 Maureen Pantoja, ЮЛИЯ Txp Post Coordinator Transplant Hepatology 10/28/24 Chris Orosco MD [address] [place] [address] [place] [address] Consulting Physician Transplant Hepatology 02/26/25 documented as of this encounter
--- OUTSIDE RECORDS SUMMARY | 2025-04-29 10:54 | XMS_ITS | Encounter Summary ---
Author Organization [facility] Address [address] [place] [address] Care Team Providers Care Stock Raiser Name Role Phone Enedina Mcguire APRN Primary Care Provider + Reason for Visit * Reason Onset Date Comments Med Refill 04/16/2025 Encounter Details Date Type Department Care Team ([facility] st Contact Info) Description 04/15/2025 Refill [facility] INTERNAL MEDICINE [address] [place] [address] Enedina Mcguire APRN [address] [place] [address] Low testosterone in male Social History Tobacco Use Types Packs/Day Years Used Date Smoking Tobacco: Former Cigarettes 4 20 Passive Smoke Exposure: Past Smokeless Tobacco: Current Comments:MARIJUANA USE ABOUT 2X PER WEEK - reports no use 08-05-2024 Alcohol Use Standard Drinks/Week Comments Not Currently 0 (1 standard drink = 0.6 oz pure alcohol) 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 [facility] Utilities Answer Date Recorded In the past 12 months has [employer], gas, oil, or water [employer] threatened to shut off services in your [...] Score 0 10/02/2022 [facility] - Occupational Stress Questionnaire Answer [...] GED or equivalent No 07/09/2024 Preferred Language Yi 07/09/2024 PHQ-2 Answer Date Recorded Patient Health Questionnaire-2 Score 0 03/03/2025 Sex and Gender Information Value Date Recorded Sex Assigned at Male 08/20/2024 8:28 PM EDT Legal Sex Male 7:45 AM EDT Gender Identity Not on file Sexual Orientation Not on file documented as of this encounter Miscellaneous Notes * Telephone Encounter - Maria Fernanda Evans MA - 04/16/2025 7:13 AM EST Last appointment: 02/17/2025 Next appointment: 05/18/2025 UDS: 12/04/2024 CSC: 02/17/2025 Last Refill: both medications filled by historical provider. documented in this encounter Plan of Treatment Upcoming Encounters Date Type Department Care Team (Late st Contact Info) Description 05/18/2025 2:30 PM EST Office Visit [facility]ICINE [address] [place] [address] Enedina Mcguire, HANDLE LATHE OPERATOR [address] [place] [address] 05/21/2025 12:30 PM EST Office Visit [facility] PAIN [facility]NAGEMENT [address] [address] Vazquez Christie PA-C [address] [address] documented as of this encounter Visit Diagnoses Diagnosis Low testosterone in male documented in this encounter Additional Health Concerns Assessment Noted Time PHQ-2 Depression Total Score: 1 12/31/19 24 3:25 PM EDT documented as of this encounter Care Teams Stock Raiser Relationship Specialty Start Date End Date Enedina Mcguire APRN [address] [place] [address] PCP - General Nurse Practitioner 10/27/24 documented as of this encounter
--- OUTSIDE RECORDS SUMMARY | 2025-04-29 10:55 | XMS_ITS | Encounter Summary ---
Author Organization [employer] ([place], [place], [place], [place], [place]) Address [address] [place] [address] Care Team Providers Care Material Mixer Name Role Phone Unavailable Primary Care Provider Unavailabl e Encounter Details Date Type Department Care Team (Late st Contact Info) Description 06/03/2018 Transcribed Document [facility] [address] [place] [address] ProviderEbenezer MD [address], [place] [id number] Social History Tobacco Use Types Packs/Day Years [...] - Historical ProviderMD - 06/03/2018 12:08 PM OCCUPATIONAL HEALTH MANAGER ED Assessment Entered On: 06/03/2018 14:51 EST Performed On: 06/03/2018 13:50 EST by Lizeth Almeida, SPINDLE CARVER Quick Look Assessment Level of Consciousness : Alert Affect/Behavior : Calm, Cooperative Orientation : Oriented x 4 Skin Color : Other: [place] Skin Temperature : Warm Skin Description : Dry Lizeth Almeida, RN - 06/03/2018 14:50 EST ED General-Functional Assess Communication Barrier : None Primary Language : Frisian Any Spiritual/Cultural Needs or Requests : No [...]
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
--- OUTSIDE RECORDS SUMMARY | 2025-04-29 10:55 | XMS_ITS ---
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
--- OUTSIDE RECORDS SUMMARY | 2025-04-29 10:55 | XMS_ITS | Clinical Summary ---
Author Organization [employer] ([place], [place], [place], [place], [place]) Address [address] [place] [address] Care Team Providers Care Sectionizer Name Role Phone Unavailable Primary Care Provider [...]
--- OUTSIDE RECORDS SUMMARY | 2025-04-29 10:55 | XMS_ITS | Encounter Summary ---
Author Organization [employer] ([place], [place], [place], [place], [place]) Address [address] [place] [address] Care Team Providers Care Tank Pumper Panelboard Name Role Phone Unavailable Primary Care Provider Unavailabl e Encounter Details Date Type Department Care Team (Late st Contact Info) Description 06/03/2018 Transcribed Document [facility] [place] [address] ProviderEbenezer MD [address] [place], [place] [id number] Social History Tobacco Use Types Packs/Day Years [...] - Historical ProviderMD - 06/03/2018 2:24 PM SKYLIGHTS ASSEMBLER Electronically signed by Gabriela [facility] Conversion Vest [employer]ner at 08/29/2022 6:41 PM CDT documented in this encounter Plan of Treatment Not on file documented as of this encounter Visit Diagnoses Not on filedocumented in this encounter
--- OUTSIDE RECORDS SUMMARY | 2025-04-29 10:55 | XMS_ITS | Clinical Summary ---
Author Organization [facility] Address [address] [place] [address] Care Team Providers Care Tube Lancer Name Role Phone Enedina Mcguire NP Primary Care Provider + [phone] Maureen Pantoja RN Unavailable Unavail able Chris Orosco MD Unavailable [phone] Source Comments This information has been disclosed [...] therelease of HIV test results or diagnoses. [id number] Allergies Active Allergy Reactions Criticality Noted [...] Encounter for therapeutic drug monitoring,S/P liver transplant ([facility]),Hypomagne semia,Kidney transplant recipient,Hypertens ion, unspecified type,Gastroesophage al reflux disease, unspecified whether esophagitis present Take 1 capsule (50,000 Units total) by mouth once a week. 4 capsule 2 025 Active methocarbamoL (ROBAXIN) 500 MG tablet [...] ncounter for therapeutic drug monitoring,S/P liver transplant ([facility]),Hypomagne semia,Kidney transplant recipient,Hypertens ion, unspecified type,Gastroesophage al reflux disease, unspecified whether esophagitis present Take 1 tablet by mouth twice daily 60 tablet 5 025 Active testosterone cypionate 200 mg/mL Kit Inject into the muscle. 021 Active NIFEdipine (PROCARDIA-XL) 30 MG (OSM) 24 hr tabletIndications:E ncounter for therapeutic drug monitoring,S/P liver transplant ([facility]),Hypomagne semia,Kidney transplant recipient,Hypertens ion, unspecified type,Gastroesophage al reflux disease, unspecified whether esophagitis present Take 1 tablet by mouth once daily 30 tablet 025 Active magnesium chloride (SLOW-MAG) 71.5 mg TbEC Take 2 tablets (143 mg total) by mouth 3 times a day. Patient purchases OTC. Patient reporting some days only taking BID. Active tacrolimus (PROGRAF) 1 MG capsuleIndications: Prevention of Kidney Transplant Rejection,Preventio n of Liver Transplant Rejection Take 4 capsules (4 mg total) by mouth 2 times a day. Indications: Prevention of Kidney Transplant Rejection, Prevention of Liver Transplant Rejection 300 capsule 5 Active mycophenolate (CELLCEPT) 250 mg capsuleIndications: Kidney transplant recipient,Liver transplant recipient ([facility]),Encounter for monitoring tacrolimus therapy,Immunosuppr essive management encounter following liver transplant ([facility]),Encounter for therapeutic drug monitoring,S/P liver transplant ([facility]) Take 2 capsules (500 mg total) by mouth 2 times a day. 60 capsule 5 04/22/20 25 10:24 AM EST Active topiramate (TOPAMAX) 50 MG tabletIndications:a lcoholism Take 1 tablet (50 mg total) by mouth daily. Indications: alcoholism 30 tablet 11 Active naltrexone (DEPADE) 50 mg tablet Take 1 tablet (50 mg total) by mouth daily. 30 tablet 5 025 2024 Discontinued mycophenolate (CELLCEPT) 250 mg capsuleIndications: Encounter for therapeutic drug monitoring,S/P liver transplant ([facility]),Hypomagne semia,Kidney transplant recipient,Hypertens ion, unspecified type,Gastroesophage al reflux disease, unspecified whether esophagitis present Take 1 capsule (250 mg total) by mouth 2 times a day. 60 capsule 5 04/08/20 25 3:41 PM EST 2024 Discontinued(R efill / Reorder) predniSONE (DELTASONE) 5 MG tablet Take 1 tablet (5 mg total) by mouth daily. 2024 Discontinued tacrolimus (PROGRAF) 1 MG capsuleIndications: Prevention of Kidney Transplant Rejection,Preventio n of Liver Transplant Rejection Take 5 capsules (5 mg total) by mouth 2 times a day. Indications: Prevention of Kidney Transplant Rejection, Prevention of Liver Transplant Rejection 300 capsule 5 04/15/20 25 4:32 PM EST 025 2024 Discontinued(R efill / Reorder) Active [...] with SBP, s/p CTX x5d; will cont group home ppx with Cipro 500mg daily - HE: [...] Encounters Date Type Department Care Team Description 04/23/2025 Chart Note [facility]plant at [address] [place] [address] Marlene Ro MA 04/22 Labs entered from [facility] 04/20/2025 Telephone [facility]plant at [address] [place] [address] Maureen Pantoja, RN Results 04/16/2025 10:51 AM EST - 04/16/2025 11:59 PM EST Hospital Encounter [facility] [address] [place] [address] Chris Orosco MD History of systemic steroid therapy; Liver transplant recipient ([facility]); Kidney transplant recipient; Immunosuppressive management encounter following liver transplant ([facility]); Encounter for monitoring tacrolimus therapy; Vitamin D deficiency Discharge Disposition: Home or Self Care WITHOUT Home Care Services 04/16/2025 9:50 AM EST Office Visit [facility]plant at [address] [place] [address] Chris Orosco MD Liver transplant recipient ([facility]) (Primary Dx); Kidney transplant recipient; Encounter for monitoring tacrolimus therapy; Immunosuppressive management encounter following liver transplant ([facility]); Alcohol use disorder, severe, dependence ([facility]); Encounter for therapeutic drug monitoring; S/P liver transplant ([facility]); Hypomagnesemia; Hypertension, unspecified type; Gastroesophageal reflux disease, unspecified whether esophagitis present 04/16/2025 Social Work [facility]plant at [address] [place] [address] Kaylin Willard MSW 04/15/2025 Chart Note [facility]plant at [address] [place] [phone] Marlene Ro MA 04/14 Labs entered from [facility] 04/07/2025 Telephone [facility]plant at [address] [place] [address] Maureen Pantoja, RN Results 04/07/2025 Refill [facility]plant at [address] [place] [phone] Chris Orosco MD Encounter for therapeutic drug monitoring; S/P liver transplant ([facility]); Hypomagnesemia; Kidney transplant recipient; Hypertension, unspecified type; Gastroesophageal reflux disease, unspecified whether esophagitis present 04/06/2025 Telephone [facility] at [address] [place] [address] Mitzy Schneider MA 04/03/2025 Telephone [facility]plant at [address] [place] [address] Maureen Pantoja, RN Results 04/03/2025 Chart Note [facility] at [address] [place] [phone] Marlene Ro MA 04/03 Labs entered from [facility] 04/03/2025 Telephone [facility] at [address] [place] [phone] Mitzy Schneider MA ask pt how much Mg he is taking / day; returning pt's phone call; follow up on plan; plan of care for patient; follow up on plan of care per dr. gonzalez 03/31/2025 Refill [facility] at [address] [place] [address] Harvey Domínguez III, MD 03/30/2025 Chart Note [facility] at [address] [place] [address] Marlene Ro MA 03/27 Labs entered from [facility] 03/24/2025 Telephone [facility] at [address] [place] [address] Maureen Pantoja, RN Results; Medication Dose Change 03/20/2025 Chart Note [facility] at [address] [place] [address] Marlene Ro MA 03/20 Labs entered from [facility] 03/19/2025 Telephone [facility]plant at [address] [place] [address] Maureen Pantoja, RN Results 03/16/2025 Telephone [facility] Transplant at [address] [place] [address] Lizeth Walden RN 03/16/2025 Chart Note [facility] at [address] [place] [phone] Marlene Ro MA Magnesium Level from 03/1303/16/2025 Telephone [facility]plant at [address] [place] [address] Mitzy Schneider MA 03/13/2025 Telephone [facility]plant at [address] [address] Mitzy Schneider MA Critical Lab Results 03/12/2025 Refill [facility] at [address] [address] Lydia Sanchez MD Encounter for therapeutic drug monitoring; S/P liver transplant ([facility]); Hypomagnesemia; Kidney transplant recipient; Hypertension, unspecified type; Gastroesophageal reflux disease, unspecified whether esophagitis present 03/10/2025 Telephone [facility] Transplant at [address] [address] Lizeth Walden RN 03/10/2025 Telephone [facility] at [address] [address] Maureen Pantoja, ЮЛИЯ Results; Medication Dose Change 03/10/2025 Chart Note [facility]plant at [address] [address] Marlene Ro MA 03/10 Labs entered from [facility] Lab 03/10/2025 Telephone [facility]plant at [address] [place] [address] Marlene Ro MA 03/10/2025 Telephone [facility] at [address] [place] [address] Marisela Martinez MA Critical Lab Results 03/06/2025 Telephone [facility]plant at [address] [place] [phone] Maureen Pantoja, RN Results 03/04/2025 Chart Note [facility] at [address] [place] [phone] Marlene Ro MA 03/04 Labs entered from [facility] 03/02/2025 Refill [facility] [address] [place] [phone] Feliciano Gomez CNP 03/02/2025 Telephone [facility] at [address] [place] [address] Marlene Ro MA 02/26/2025 Telephone [facility] at [address] [place] [address] Maureen Pantoja, ЮЛИЯ Results; Medication Dose Change 02/26/2025 Chart Note [facility] at [address] [place] [address] Marlene Ro MA 02/24 Labs entered from [facility] 02/25/2025 10:50 AM EDT Office Visit [facility] at [address] [place] [address] Bruno Gonzalez MD Kidney transplant recipient (Primary Dx); Neck pain with history of cervical spinal surgery; S/P liver transplant (CMS-HCC) 02/25/2025 Refill [facility] at [address] [place] [address] Lydia Sanchez MD Encounter for therapeutic drug monitoring; S/P liver transplant ([facility]); Hypomagnesemia; Kidney transplant recipient; Hypertension, unspecified type; Gastroesophageal reflux disease, unspecified whether esophagitis present 02/23/2025 Chart Note [facility] at [address] [place] [address] [place] [address] Marlene Ro MA 02/18 Labs entered from [facility] 02/23/2025 Telephone [facility] at [address] [place] [address] Marlene Ro MA 02/17/2025 Telephone [facility] at [address] [place] [address] Marlene Ro MA 02/13/2025 Telephone [facility] at [address] [place] [address] Marisela Martinez MA Results 02/12/2025 10:50 AM EDT Office Visit [facility] at [address] [place] [address] Chris Orosco MD Liver transplant recipient ([facility]) (Primary Dx); History of systemic steroid therapy; Kidney transplant recipient; Immunosuppressive management encounter following liver transplant ([facility]); Encounter for monitoring tacrolimus therapy; Vitamin D deficiency; Encounter for therapeutic drug monitoring; S/P liver transplant ([facility]); Hypomagnesemia; Hypertension, unspecified type; Gastroesophageal reflux disease, unspecified whether esophagitis present; Alcohol use disorder; Immunosuppression ([facility]); Viral disease exposure 02/12/2025 Social Work [facility] [address] [place] [address] [facility] [place] [address] Kaylin Willard MSW 02/12/2025 Telephone [facility] at [address] [place] [phone] Maureen Pantoja, RN Results 02/10/2025 Chart Note [facility] at [address] [place] [address] Marlene Ro MA 02/10 Labs entered from [facility] 02/09/2025 Chart Note [facility] at [address] [place] [address] Marisela Martinez MA 02/09/2025 Telephone [facility] at [address] [place] [phone] Marisela Martinez MA 02/08/2025 Refill [facility] at [address] [place] [phone] Harvey Domínguez III, MD 02/04/2025 Telephone [facility] at [address] [place] [address] Marlene Ro MA 02/03/2025 Telephone [facility] at [address] [place] [address] Mitzy Schneider MA Results 02/03/2025 Telephone [facility] at [address] [place] [phone] Marlene Ro MA 02/03/2025 Chart Note [facility] at [address] [place] [phone] Marlene Ro MA 02/03 Labs entered from [facility] 01/27/2025 6:28 PM EDT - 01/30/2025 2:25 PM EDT [address] [place] [address] Sunny Wei MD Haugen, Christine, MD Diarrhea [...] 4 glasses of wine a days [facility] [employer] Answer Date Recorded In the past 12 months has th e [employer], [employer]im[employer], oil, or water Surve[employer]al threatened to shut off services in your [...] Mass Index 31.2 04/16/2025 9:46 AM EST Plan of Treatment Health Maintenance Due Date Last Done Comments ASCVD Assessment 1983 Tobacco Cessation Readiness 1983 Immunization: Hepatitis A (1 of 2 - Risk 2-dose series) 2002 Immunization: Pneumococcal ( 1 of 2 - PCV) 2002 Immunization: Zoster (1 of 2) 2002 Immunization: Hepatitis B (2 of 3 - 19+ 3-dose series) 10/11/2010 09/13/2010 Immunization: COVID-19 ( - season) 2025 03/17/2021, 07/25/2020, 06/27/2020 Immunization: Influenza (MyC adler) (#1) 2025 03/12/2024, 03/12/2023 Thyroid Function/TSH (MyChart) 10/07/2025 0 10/07/2024, 10/06/2024, 09/03/2024 Depression Screening 12/10/2025 12/10/2024, 12/10/2024, 09/29/2024, Additional history exists Alcohol Misuse Screening 01/27/2026 025, 10/25/2024, 10/05/2024, Additional history exists Diabetes Screening 01/27/2026 01/27/2025, 0 10/27/2024, 10/08/2024 Renal Function/GFR 04/22/2026 04/22/2025, 1 06/15/2024, 04/03/2025, Additional history exists Immunization: DTaP/Tdap/Td ( 3 - Td or Tdap) 06/03/2028 06/03/2018, 09/13/2010 Hepatitis C Screening (MyChart) Completed 10/25/2024, 10/07/2024, 10/06/2024, Additional history exists HIV Screening Completed 11/25/2024, 10/12, 10/07/2024 Immunization: HPV (No Doses Required) Completed Procedures Procedure Name Priority Date/Time Associated Diagnosis Comments MAGNESIUM Routine 04/22/2025 9:59 AM EST RENAL FUNCTION PANEL W/O EGFR Routine 04/22/2025 9:59 AM EST CREATININE, URINE, RANDOM Routine 2024 9:59 AM EST URINALYSIS W/RFL TO MICROSCOPIC Routine 04/22/2025 9:59 AM EST CBC AND DIFFERENTIAL Routine 04/22/2025 9:59 AM EST URINE PROTEIN, TOTAL, RANDOM (W/O CREATININE) Routine 04/22/2025 9:59 AM EST HEPATIC FUNCTION PANEL Routine 9:59 AM EST DXA BONE DENSITY AXIAL SKELETON Routine 04/16/2025 11:25 AM EST History of systemic steroid therapy Liver transplant recipient ([facility]) Kidney transplant recipient Immunosuppressive management encounter following liver transplant ([facility]) Encounter for monitoring tacrolimus therapy Vitamin D deficiency PHATIDYLETHANOL (PETH) Routine 1:05 PM EST TACROLIMUS LEVEL Routine 04/14/2025 1:05 PM EST MAGNESIUM Routine [...] HEPATIC FUNCTION PANEL Routine 1:05 PM EST URINE CULTURE Routine 04/14/2025 1:05 PM EST TACROLIMUS LEVEL Routine 04/03/2025 [...] CONTRAST STAT 01/28/2025 1 2:35 AM EDT HEMOGLOBIN A1C Routine 01/27/2025 8:20 PM EDT HIV-1 RNA, QUANTITATIVE, PCR Routine 11/25/2024 8:42 AM EDT S/P liver transplant (CMS-HCC) Immunosuppression (CMS-HCC) Viral disease exposure HEPATITIS C ANTIBODY STAT 10/25/2024 10:17 PM EDT TSH Routine 10/07/2024 6:37 PM EDT from Last 3 Months or Most Recently Relevant to Health Maintenance Results * Urine Protein, Tot, Random (w/o Creat) (04/22/2025 9:59 AM EST) Only the most recent of10 resultswithin the time period is included. Total Protein, Ur 16.0 Urine Narrative Resulting Agency Comment [facility] Provider Result Type Result Stat [facility] URINE ORDERABLES Final Re sult * Hepatic Function Panel (04/22/2025 9:59 AM EST) Only the most recent of14 resultswithin the time period is included. Bilirubin, Direct 0.1 Bilirubin, Indirect 0.7 Alkaline Phosphatase 66 ALT 51 AST 54 Total Bilirubin 0.8 Total Protein 6.9 Plasma Narrative Resulting Agency Comment [facility] LAB BLOOD ORDERABLES Denisse l Result * Creatinine, urine, random (04/22/2025 9:59 AM EST) Only the most recent of10 resultswithin the time period is included. Creatinine, Urine 115 Urine Narrative Resulting Agency Comment [facility] Provider URINE ORDERABLES Final Re sult * Urinalysis w/Rfl to Microscopic (04/22/2025 9:59 AM EST) Only the most recent of11 resultswithin the time period is included. Glucose, UA Negative Negative Ketones, UA Negative Negative Blood, UA Negative Negative Bilirubin, UA Negative Negative Urobilinogen, UA Normal Normal Protein, UA Negative Negative Nitrite, UA Negative Negative pH, UA 6.0 4.5 - 8.0 Specific [place], UA 1.020 1.005 - 1.030 Clarity, UA Clear Clear Color, UA Yellow Light Yellow, Yellow Urine Narrative Resulting Agency Comment [facility] Provider URINE ORDERABLES Final Re sult * (ABNORMAL) CBC and differential (04/22/2025 9:59 AM EST) Only the most recent of11 resultswithin the time period is included. Pathologist [facility] Hemoglobin 14.5 13.5 - 17.5 g/dL Hematocrit [...] 7.4 10^3/mL Blood Narrative Resulting Agency Comment [facility] Result [facility] Provider LAB BLOOD ORDERABLES Denisse l Result * (ABNORMAL) Magnesium (04/22/2025 9:59 AM EST) Only the most recent of15 resultswithin the time period is included. [facility] Magnesium 1.1(A) 1.6 - 2.4 mg/dL Plasma Narrative Resulting Agency Comment [facility] Result [facility] LAB BLOOD ORDERABLES Denisse l Result * Renal Function Panel w/o EGFR (04/22/2025 9:59 AM EST) Only the most recent of11 resultswithin the time period is included. Pathologist [facility] Glucose 101 BUN 14 CO2 22 13 - 22 mmol/L Creatinine 1.60 Potassium 4.0 Sodium 141 Chloride 104 Phosphorus 4.0 2.5 - 4.9 mg/dL Calcium 9.1 EGFR 48 mg/dL Albumin 4.7 3.5 - 5.0 g/dL Blood Narrative Resulting Agency Comment [facility] us Historical Provider LAB BLOOD ORDERABLES Denisse valle Result * DXA bone density axial skeleton (04/16/2025 [...] of systemic steroid therapy; Liver transplant recipient ([facility]); Kidney transplant recipient; Immunosuppressive management encounter following liver transplant ([facility]); Immunosuppressive management encounter following liver transplant ([facility]); Encounter for monitoring tacrolimus therapy; Encounter for monitoring tacrolimus therapy; Vitamin D deficiency TECHNICAL: Bone mineral density analysis was performed on a [employer] scanner. ARTIFACTS: None COMPARISON: No prior studies [...] and age. Age: 39 years Procedure Note Soun Sanchez MD - 04/16/2025 EXAM: DXA BONE DENSITY AXIAL SKELETON INDICATION: History of systemic steroid therapy; Liver transplantrecipient (CMS- HCC); Kidney transplant recipient; Immunosuppressivemanagement encounter following liver transplant (CMS-HCC);Immunosuppressive management encounter following liver transplant(CMS-HCC); Encounter for monitoring tacrolimus therapy; Encounter formonitoring tacrolimus therapy; Vitamin D deficiency TECHNICAL: Bone mineral density analysis was performed on a emids iDXAscanner. ARTIFACTS: None COMPARISON: No prior studies currently [...] Sanchez MD at 04/16/2025 2:47 PM EST Result [facility] Chris Orosco MD IMG DEXA ORDERABLES Final Result * Phatidylethanol (PEth) (04/14/2025 1:05 PM EST) Only the most recent of9 resultswithin the time period is included. Phosphatidylethanol (PEth) Positive 370 Whole Blood Result [facility] Provider LAB BLOOD ORDERABLES Denisse l Result * (ABNORMAL) Tacrolimus level (04/14/2025 1:05 PM EST) Only the most recent of13 resultswithin the time period is included. Tacrolimus Lvl 16.0(A) 6 - 15 ng/mL Whole Blood Result [facility] LAB BLOOD ORDERABLES Denisse l Result * Urine culture (04/14/2025 1:05 PM EST) Only the most recent of5 resultswithin the time period is included. Urine Culture, Comprehensive no growth URINE SPECIMEN / Unknown Result [facility] MICROBIOLOGY - GENERAL OR DERABLES Final Result * BK Virus Quantitative by PCR, Blood (03/20/2025 7:15 AM EST) Only the most recent of3 resultswithin the time period is included. BK Virus Quant PCR PL negative Plasma Result [facility] Provider LAB BLOOD ORDERABLES Denisse l Result * Cytomegalovirus DNA, Quant, RT PCR (03/10/2025 9:29 AM EDT) Only the most recent of3 resultswithin the time period is included. [facility] CMV Quant DNA PCR (Plasma) Negative Plasma Historical Provider MD LAB BLOOD ORDERABLES Denisse l Result * Vitamin D 25 hydroxy (03/04/2025 11:29 AM EDT) [facility] Vit D, 25-Hydroxy 38.4 Serum Narrative Resulting Agency Comment [facility] Provider MD LAB BLOOD ORDERABLES Denisse l Result * Clostridium difficile DNA Amplification (02/03/2025 11:04 AM EDT) Only the most recent of2 resultswithin the time period is included. [facility] Clost. Diff DNA Amp. Positive Norovirus Detected FECES / Unknown [facility] Provider BODY FLUIDS AND STOOLS OR DERABLES Edited Result - Final * (ABNORMAL) Differential (01/30/2025 7:41 AM EDT) [facility] Neutrophils Relative 39.1(L) 40.0 - [...] - 1,296 /uL 01/30/2025 8:09 AM EDT [facility] Eosinophils Absolute 44 0 - 864 /uL 01/30/2025 8:09 AM EDT [facility] Basophils Absolute 14 0 - 108 /uL 01/30/2025 8:09 AM EDT [facility] Whole Blood 01/30/2025 7:41 AM EDT 01/30/2025 8:01 AM EDT Feliciano Gomez [facility] LAB BLOOD ORDERABLES Final Resu lt [facility] [address] [place] [address], [facility] * (ABNORMAL) Renal Function Panel w/EGFR (01/30/2025 5:51 AM EDT) Only the most recent of3 resultswithin the time period is included. Sodium 139 133 - 146 mmol/L 01/30/2025 7:06 AM EDT [facility] Potassium 3.5 3.5 - 5.3 mmol/L 01/30/2025 7:06 AM EDT [facility] Chloride 105 98 - 110 mmol/L 01/30/2025 7:06 AM EDT [facility] CO2 26 21 - 33 mmol/L 01/30/2025 7:06 AM EDT [facility] Anion Gap 8 3 - 16 mmol/L 01/30/2025 7:06 AM EDT [facility] BUN 29(H) 7 - 25 mg/dL 01/30/2025 7:06 AM EDT [facility] Creatinine 1.14 0.60 - 1.30 mg/dL 01/30/2025 7:06 AM EDT [facility] Glucose 114(H) 70 - 100 mg/dL 01/30/2025 7:06 AM EDT [facility] Calcium 8.7 8.6 - 10.3 mg/dL 01/30/2025 7:06 AM EDT [facility] Phosphorus 5.1(H) 2.1 - 4.7 mg/dL 01/30/2025 7:06 AM EDT [facility] Albumin 4.1 3.5 - 5.7 g/dL 01/30/2025 7:06 AM EDT [facility] Osmolality, Calculated 295 278 - 305 mOsm/kg 01/30/2025 7:06 AM EDT [facility] EGFR 83 01/30/2025 7:06 AM EDT [facility] Comment:As of [...] Hill MD LAB BLOOD ORDERABLES Final Result [facility] [address] [place] [address], [facility] * (ABNORMAL) CBC (01/30/2025 5:51 AM EDT) Only the most recent of3 resultswithin the time period is included. WBC 2.1(L) 3.8 - 10.8 10E3/uL 01/30/2025 6:41 AM EDT [facility] RBC 3.41(L) 4.20 - 5.80 10E6/uL 01/30/2025 6:41 AM EDT [facility] Hemoglobin 11.2(L) 13.2 - 17.1 g/dL 01/30/2025 6:41 AM EDT [facility] Hematocrit 31.9(L) 38.5 - 50.0 % 01/30/2025 6:41 AM EDT [facility] MCV 93.7 80.0 - 100.0 fL 01/30/2025 6:41 AM EDT [facility] MCH 32.9 27.0 - 33.0 pg 01/30/2025 6:41 AM EDT [facility] MCHC 35.1 32.0 - 36.0 g/dL 01/30/2025 6:41 AM EDT [facility] RDW 14.8 11.0 - 15.0 % 01/30/2025 6:41 AM EDT [facility] Platelets 95(L) 140 - 400 10E3/uL 01/30/2025 6:41 AM EDT [facility] MPV 6.4(L) 7.5 - 11.5 fL 01/30/2025 6:41 AM EDT [facility] Whole Blood 01/30/2025 5:51 AM EDT 01/30/2025 6:33 AM EDT Carlton Hill MD LAB BLOOD ORDERABLES Final Result Performing Organization Address City/State/[facility] Co de Phone Number [facility] [address] * CT Neck With IV contrast [...] cavity, parapharyngeal space, and retropharyngeal space. Normal dive superintendent space, infratemporal fossa, and buccal space. Infrahyoid [...] oral cavity, parapharyngeal space, andretropharyngeal space. Normal dive superintendent space, infratemporal fossa, andbuccal space. Infrahyoid neck: [...] at 01/29/2025 2:41 PM EDT Feliciano Garcia [employer] [facility] IMG CT ORDERABLES Final Result * Sed Rate (01/29/2025 5:55 AM EDT) Pathologist [facility] Sed Rate 2 0 - 15 mm/hr 01/29/2025 7:03 AM EDT [facility] Whole Blood 01/29/2025 5:55 AM EDT 01/29/2025 6:41 AM EDT Feliciano Jose [facility] LAB BLOOD ORDERABLES Final Resu lt Performing Organization Address City/[facility]/ZIP Co de Phone Number [facility] [address] [place] [address] * C-Reactive Protein (01/29/2025 5:55 AM EDT) [facility] CRP 4.1 1.0 - 10.0 mg/L 01/29/2025 7:13 AM EDT [facility] Plasma 01/29/2025 5:55 AM EDT 01/29/2025 6:41 AM EDT Feliciano Garcia [employer] [facility] LAB BLOOD ORDERABLES Final Resu lt [facility] [address] * Giardia Cryptosporidium Antigens (Feces) (01/28/2025 9:27 PM EDT) Pathologist [facility] Cryptosporidium Ag Negative Negative 2024 8:03 AM EDT [facility] Giardia Ag Negative Negative 01/29/2025 8:03 AM EDT [facility] Comment: Detection of Giardia and Cryptosporidium antigen is more sensitive and specific than microscopy. Because antigens are shed continuously, repeat testing is rarely warranted. Feces 01/28/2025 9:27 PM EDT 01/28/2025 10:07 PM EDT Comment:F Ruby Chiang MD MICROBIOLOGY - GENERAL ORDERAB LES Final Result Performing Organization Address City/[facility] Co de Phone Number [facility] [address] [place] [address]. [address] * Ova and Parasite Comprehensive w/Giardia (Feces) (01/28/2025 9:27 PM EDT) Pathologist [facility] O & P Method: Concentration and Trichrome Stain [facility] Results No Amoeba, Ova, Or Parasites Seen. -- O and P examination of additional specimens is recommended only for symptomatic patients, immunosuppressed patients or those with an appropriate travel history. [facility] Feces FECES / Unknown 01/28/2025 9 :27 PM EDT 01/28/2025 10:07 PM EDT Comment:F Result [facility] Ruby Chiang MD MICROBIOLOGY - GENERAL ORDERAB LES Final Result Performing Organization Address [facility] Co de Phone Number [facility] [address] [place] [address]. [address] * Clostridium Difficile Toxin A/B Antigen (01/28/2025 1:21 PM EDT) Pathologist [facility] CDIFF Tox AGN Negative Negative 01/28/2025 10:35 PM EDT [facility] Comment:C. difficile [...] 01/28/2025 9:59 PM EDT Comment:F Feliciano Gomez GUITAR TECHNICIAN BODY FLUIDS AND STOOLS ORDERABL ES Final Result [facility] [address] [place] [address], [facility] * Phosphatidylethanol Confirmation, B (01/28/2025 7:14 AM EDT) PETH 16:0/18.1 (POPETH) 394 Cutoff: 10 ng/mL 01/30/2025 9:58 AM EDT [facility] Comment: Phosphatidylethanol [...] Cutoff: 10 ng/mL 01/30/2025 9:58 AM EDT [facility] Comment: PEth 16:0/18:2 (PLPEth) Reference ranges are not well established PEth Interpretation Positive. 01/30 9:58 AM EDT [facility] Comment: ADDITIONAL [...] and Drug Administration. Test Performed by: [facility] - [address] [address] Licensed Nuclear Control Room Operator: Kathy Ortiz Ph.D.; CLIA# [id number] Whole Blood 01/28/2025 7:14 AM EDT 01/30/2025 9:58 AM EDT us Carlton Hill MD LAB BLOOD ORDERABLES Final Result [facility] [address] [place] [address], [facility] * CT Head WO contrast (01/28/2025 [...] 1:39 AM EDT us Shelby Blanco MD IMG CT ORDERABLES Final Result * Hemoglobin A1c (01/27/2025 8:20 PM EDT) [...] PM EDT 01/27/2025 8:57 PM EDT Narrative [facility] - 01/27/2025 11:49 PM EDT A1C project?->Yes us Pamela JACOME LAB BLOOD ORDERABLES Final Res ult [facility] [address] [place] [address], [facility] * HIV-1 RNA, Quantitative, PCR (11/25/2024 8:42 AM EDT) HIV 1 Copies Not Detected copies/mL 11/26/2024 10:57 AM EDT [facility] Comment:Test methodology for HIV-1 RNA quantification is an FDA-approved nucleic acid amplification assay. The Lower Limit of Quantitation (LLoQ) is 20 copies/mL. The linear range is 20- to 10,000,000 copies/mL. The Limit of Detection (LoD) is 13.2 copies/mL. The reference range is Not Detected. HIV [id number] See Note [id number] /mL 11/26/2024 10:57 AM EDT [facility] Comment:HIV-1 RNA not detect ed. Plasma 11/25/2024 8:42 AM EDT 11/25/2024 10:59 AM EDT Narrative [facility] - 11/26/2024 10:57 AM EDT One time lab order to be collected with next set of standing liver transplant labs. UNOS requirement. Please fax all results to [phone]. Call critical results to [phone]. Harvey Domínguez III, MD LAB BLOOD ORDERABLE S Final Result [facility] [address] * Hepatitis C Antibody (10/25/2024 10:17 PM EDT) HCV Ab Nonreactive Nonreactive 10/25/2024 11:16 PM EDT [facility] Comment:Health Department no tified in accordance with reportable infectious disease guidelines. Serum 10/25/2024 10:1 7 PM EDT 10/25/2024 10:17 PM EDT Narrative [facility] - 10/25/2024 11:16 PM EDT Antibodies to HCV not detected; does not exclude the possibility of exposure to HCV. Aysha Gill MD LAB BLOOD ORDERABLES F inal Result [facility] [address] * TSH (Thyroid Stimulating Hormone) (10/07/2024 6:37 PM EDT) TSH 0.81 0.45 - 4.12 uIU/mL 10/07/2024 8:17 PM EDT [facility] Serum 10/07/2024 6:37 PM EDT 10/07/2024 6:50 PM EDT us Gerri Peterson MD LAB BLOOD ORDERABLES Final Resu lt [facility] [address] [place] [address], [facility] from Last 3 Months or Most Recently Relevant to Health Maintenance Insurance [employer] Member Subscriber Plan / Payer ( fective 2025-Present) Name:Julien Anderson Relation to Subscriber:Spouse Name:HEATHER CHIANG Date of :1989 Address: [address] [place] [address] Payer ID:[id number] (NAIC) Type:PPO Address: [place] [id number] [employer] Member Subscriber Plan / Payer ( fective 2025-Present) Name:Julien Anderson Relation to Subscriber:Spouse Name:HEATHER CHIANG Date of :1989 Address: [address] [place] [address] Payer ID:[id number] (NAIC) Type:PPO Address: [place] [phone] Advance Directives For more information, please contact: [phone] * Full Code (Latest Code Status on [...] 9:42 AM 09/09/2024 10:30 PM Care Teams Tube Lancer Relationship Specialty Start Date End Date Enedina Mcguire NP [address] [place] [address] PCP - General Internal Medicine 10/05/24 Maureen Pantoja, RN Txp Post Coordinator Transplant Hepatology 10/28/24 Chris Orosco MD [address] [place] [address] [address] [place] [address] Consulting Physician Transplant Hepatology 02/26/25
--- OUTSIDE RECORDS SUMMARY | 2025-04-29 10:55 | XMS_ITS | Encounter Summary ---
Author Organization [employer] ([place], [place], [place], [place], [place]) Address [address] [place] [address] Care Team Providers Care Solvent Plant Treater Name Role Phone Unavailable Primary Care Provider Carmen jimenez Encounter Details Date Type Department Care Team (Late st Contact Info) Description 06/03/2018 Transcribed Document [facility] [place] [facility] [place] [address] ProviderEbenezer MD [address] [place] [address] Social History Tobacco Use Types [...] - Historical ProviderMD - 06/03/2018 3:04 PM MANAGER OPERATIONS RESEARCH [address] [place] [address] Patient Information Name: JULIEN ZELAYA [...] [address] [place] [address] [place] [address] [employer] (1) Within 2 to 3 days Patient [...] off of the skin. General Instructions??? Take [id number] and prescription medicines only as told by [...] 04/30/2006 Document Revised: 09/29/2016 Document Reviewed: 04/26/2015 [employer] Interactive Patient Education ? 2017 [employer] Allergies: No Known Medication Allergies Medication [...] verify that JULIEN ZELAYA was seen at [facility] Emergency Department on ,06/03/2018 15:04:17. This [...] Assistance with quitting is available by contacting [phone]-NOW. This is a free resource providing counseling, [...] Electronic Communications Privacy Act 18 U.S.C. ???Sections 0891-2049,?? and contain information intended for the specified [...] sure to sign up for the My [facility] patient portal, which gives you 04/12 access to your medical information ??? including these discharge instructions ??? using your computer, smartphone, or tablet. Just go to [employer] to get started. Questions? Call . Acknowledgment [...]
--- OUTSIDE RECORDS SUMMARY | 2025-04-29 10:55 | XMS_ITS | Encounter Summary ---
Author Organization [facility] Address [address] [place] [address] Care Team Providers Care Director Of Analytical Development Name Role Phone Enedina Mcguire NP Primary Care Provider + [phone] Maureen Pantoja RN Unavailable Unavail able Chris Orosco MD Unavailable [phone] Source Comments This information has been disclosed [...] release of HIV test results or diagnoses. [id number] Encounter Details Date Type Department Care Team (Late st Contact Info) Description 02/23/2025 Chart Note [facility] Liver Transplant at [place] [id number] [address] Marlene Ro MA 02/18 Labs entered from [facility] Social History Tobacco Use Types Packs/Day Years Used Date Smoking Tobacco: Former Cigarettes Smokeless Tobacco: Current Alcohol Use Standard Drinks/Week Comments Yes 0 (1 standard drink = 0.6 oz pure alcohol) History of alcohol abuse, reports no use in 3 week- typically endorses use as 4 glasses of wine a days [facility] Utilities Answer Date Recorded In the past 12 months has [employer] electric, gas, oil, or water company threatened [...] were not included. 02/18 Labs entered from [facility] Pet Pending documented in this encounter Plan [...] Resulting Agency Comment [facility] Result [facility] LAB BLOOD ORDERABLES Denisse l Result * (ABNORMAL) Renal Function Panel w/o EGFR (02/18/2025 10:34 AM EDT) Glucose 84 BUN 24 CO2 31(A) 13 - 22 mmol/L Creatinine 1.10 Potassium 4.3 Sodium 140 Chloride 99 Phosphorus 4.9 2.5 - 4.9 mg/dL Calcium 9.1 EGFR 74 mg/dL Albumin 4.4 3.5 - 5.0 g/dL Blood Narrative Resulting Agency Comment [facility] Result [facility] LAB BLOOD ORDERABLES Denisse l Result * Tacrolimus level (02/18/2025 10:34 AM EDT) [facility] Tacrolimus Lvl 10.7 6 - 15 ng/mL Whole Blood Narrative Resulting Agency Comment [facility] Result [facility] LAB BLOOD ORDERABLES Denisse l Result * Creatinine, urine, random (02/18/2025 10:34 AM EDT) Pathologist [facility] Creatinine, Urine 54 Urine Narrative Resulting Agency Comment [facility] Result [facility] URINE ORDERABLES Final Re sult * Urinalysis w/Rfl to Microscopic (02/18/2025 10:34 AM EDT) Glucose, UA Negative Negative Ketones, UA Negative Negative Blood, UA Negative Negative Bilirubin, UA Negative Negative Urobilinogen, UA Normal Normal Protein, UA Negative Negative pH, UA 5.5 4.5 - 8.0 Specific [place], UA 1.015 1.005 - 1.030 Clarity, UA Clear Clear Color, UA Yellow Light Yellow, Yellow Urine Narrative Resulting Agency Comment [facility] Historical Provider URINE ORDERABLES Final [...] 4.9 10^3/mL Blood Narrative Resulting Agency Comment [facility] Historical Provider LAB BLOOD ORDERABLES Denisse l Result * Urine Protein, Tot, Random (w/o Creat) (02/18/2025 10:34 AM EDT) Total Protein, Ur 22.0 Urine Narrative Resulting Agency Comment [facility] Historical Provider URINE ORDERABLES Final Re sult * Hepatic Function Panel (02/18/2025 10:34 AM EDT) Bilirubin, Direct 0.0 Bilirubin, Indirect 0.5 Alkaline Phosphatase 85 ALT 19 AST 24 Total Bilirubin 0.5 Total Protein 7.1 Plasma Narrative Resulting Agency Comment [facility] us Historical Provider LAB BLOOD ORDERABLES Denisse l Result documented in this encounter Visit Diagnoses Not on filedocumented in this encounter Additional Health Concerns Infection Onset Date Last Indicated Resolved Time C. difficile 01/28/2025 01/28/2025 04/28/2025 9:36 PM EST Assessment Noted Time PHQ-9 Depression Total Score: 2 12/11/19 9:00 AM EDT documented as of this encounter Care Teams Director Of Analytical Development Relationship Specialty Start Date End Date Enedina Mcguire NP [address] [place] [address] PCP - General Internal Medicine 10/05/24 Maureen Pantoja, ЮЛИЯ Txp Post Coordinator Transplant Hepatology 10/28/24 [place] [address] [place] [address] [address] [place] [address] Consulting Physician Transplant Hepatology 02/26/25 documented as of this encounter
--- OUTSIDE RECORDS SUMMARY | 2025-04-29 10:55 | XMS_ITS | Encounter Summary ---
Author Organization [employer] ([place], [place], [place], [place], [place]) Address [address] [place] [address] Care Team Providers Care Vine Fruit Farming Supervisor Name Role Phone Unavailable Primary Care Provider Unavaillia e Encounter Details Date Type Department Care Team (Late st Contact Info) Description 06/03/2018 Transcribed Document [facility] Family Medicine [facility] [place] [address] ProviderEbenezer MD [address] [place] [address] Social History Tobacco Use Types [...] - Historical ProviderMD - 06/03/2018 3:04 PM ORACLE DBA [place] [address] [facility] [place] [address] PERSON INFORMATION Name JULIEN ZELAYA Age 33 Years 1985 Sex Male Language Occitan PCP SLALY EVERETT (REF) T Marital Status Single Med Service Emergency Medicine Acct# Arrival 06/03/2018 12:08:00 Visit Reason Finger laceration; CUT FINGERS Acuity 3 - Urgent LOS 000 02:56 Depart Date: 06/03/18 03:04 PM Address: [facility] [address] Comment: PROVIDER INFORMATION Provider Role Assigned Unassigned Lizeth Almeida, NATIONAL FACILITIES MANAGER Nurse 06/03/2018 12:39:09 DOMINIQUE BREWER PA-C [...] PURI [address] [place], [employer] [id number] [email or web address] (1[employer] Within 2 to 3 days Comment: Electronically signed by Luis Eduardo Ochoa Conversion Loft Worker P[employer] D[employer] at 08/29/2022 6:45 PM CDT documented in this encounter Plan of Treatment Not on file documented as of this encounter Visit Diagnoses Not on filedocumented in this encounter
--- OUTSIDE RECORDS SUMMARY | 2025-04-29 10:55 | XMS_ITS | Referral Summary ---
Author Organization [employer] ([place], [place], [place], [place], [place]) Address [address] [place] [address] Care Team Providers Care Real Estate Manager Name Role Phone Unavailable Primary Care [...]
--- OUTSIDE RECORDS SUMMARY | 2025-04-29 10:55 | XMS_ITS | Encounter Summary ---
Author Organization [employer] ([place], [place], [place], [place], [place]) Address [address] [place] [address] Care Team Providers Care Production Checker Name Role Phone Unavailable Primary Care Provider Unavailabl e Encounter Details Date Type Department Care Team (Late st Contact Info) Description 06/03/2018 Transcribed Document [facility] Family Medicine [facility] [place] [address] ProviderEbenezer MD [address] [place] [address] Social History Tobacco Use Types [...] - Historical ProviderMD - 06/03/2018 12:08 PM CHIEF HUMAN RESOURCES OFFICER ED Triage Entered On: 06/03/2018 12:17 EST Performed On: 06/03/2018 12:12 EST by KANU VELEZ RN ED Triage Across the Room Triage Date/Time : 06/03/2018 12:12 EST Chief Complaint : lacerations to rt index and left middle finger 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 lacerations noted with bleeding controlled KANU VELEZ RN - 06/03/2018 12:12 EST DCP GENERIC CODE Tracking Acuity : 3 - Urgent Tracking Group : [facility] [place] KANU EVLEZ RN - 06/03/2018 12:12 EST Mode of [...] 12:17:41 EST) Problems(Active) HTN (hypertension) (SNOMED CT :0048481072 ) Name of Problem: HTN (hypertension) ; Recorder: KANU VELEZ RN; Confirmation: Confirmed ; Classification: Medical ; Code: [id number] ; Contributor System: Knome ; Last Updated: 06/03/2018 12:14 EST ; Life Cycle Date: 06/03/2018 ; Life Cycle Status: Active ; Vocabulary: SNOMED CT Diagnoses(Active) Finger laceration Date: 06/03/2018 ; Diagnosis Type: Reason For Visit ; Confirmation: Complaint of ; Clinical Dx: Finger laceration ; Classification: Medical ; Clinical Service: Emergency medicine ; Code: PNED ; Probability: 0 ; Diagnosis Code: [id number] ED Height and Weight Height Source : Stated Height Entry Format : [place] Height, Feet : 6 ft(Converted to: 183 cm, 72 Inch) Height, Inches : 4 Inch(Converted to: 0 ft 4 Inch, 10.16 cm) Clinical Height : 193.04 cm Weight Source, ED : Standing scale Weight Entry Format : [place] Weight, Pounds : 265 lb Clinical Dosing Weight : 120.45 kg Body Surface Area (BSA) : 2.5 m2 Body Mass Index : 32.3 kg/m2 (HI) [place] Body Weight (IBW) : 85.74 kg KANU [...]
--- OUTSIDE RECORDS SUMMARY | 2025-04-29 10:55 | XMS_ITS | Encounter Summary ---
Author Organization [employer] ([place], [place], [place], [place], [place]) Address [address] [place] [address] Care Team Providers Care Land Title Examiner Name Role Phone Unavailable Primary Care Provider Unavailabl e Encounter Details Date Type Department Care Team (Late st Contact Info) Description 06/03/2018 Transcribed Document [facility] Family Medicine [facility] [place] [address] ProviderEbenezer MD [address] [place], [place] [id number] Social History Tobacco Use Types Packs/Day Years [...] - Historical ProviderMD - 06/03/2018 3:03 PM ANCHOR TACK PULLER ED Discharge Entered On: 06/03/2018 15:03 EST Performed On: 06/03/2018 15:03 EST by Lizeth Almeida, waste elimination Process Patient Disposition : Discharge Personal Belongings [...] - 06/03/2018 15:03 EST Electronically signed by [facility] Conversion Campaign Coordinator [place] at 08/29/2022 6:35 PM CDT documented in this encounter Plan of Treatment Not on file documented as of this encounter Visit Diagnoses Not on filedocumented in this encounter
--- OUTSIDE RECORDS SUMMARY | 2025-04-29 10:56 | XMS_ITS ---
Author Organization [facility] Address [facility] [place] [address] Care Team Providers Care Fixed Income Trading Vice President Name Role Phone Enedina Mcguire NP Primary Care Provider + [phone] Maureen Pantoja RN Unavailable Unavail able Chris Orosco MD Unavailable [phone] Transplant Episode Liver Recipient [facility] [place] - [facility] Organ Received: Liver Transplanted on 10/26/2024 Marked as Active Follow-up on 10/26/2024 Liver CoordinatorMaureen Pantoja RN Phone: N/A Fax: N/A Email: N/A [place] Organ Diagnosis Organ Primary Contributory Liver Alcohol-Associated [...] N/A Chris Orosco MD Referring Physician Txp Permastone Installer [phone] N/A Maureen Pantoja RN Txp Post Coordinator N/A N/A N/A NUBIA Barros Txp Floor Layer Tile N/A N/A N/A Harvey Domínguez III, MD Txp Surgeon [phone] N/A Mray Butler RN Txp Pre Coordinator N/A N/A N/A Events Post-Transplant Pre-Transplant Admitted: 10/25/2024 Referred: 08/13/2024 Transplanted: 10/26/2024 Evaluation began: Discharged: 11/02/2024 Committee: 10/14/2024 Center waitlisted: 5 Pending Checklist Tasks (Due on or before 05/30/2025) Name Due Date Attached Appoint ment Social Work Consult 01/05/2025 Appointments (03/30/2025 - 05/30/2025) When With Visit Type Description 04/16/2025 Txp Tabatha - ShaunnaDeepti, A Established Patient Liver transplant recipient ([facility]) (Primary Dx); Kidney transplant recipient; Encounter for monitoring tacrolimus therapy; Immunosuppressive management encounter following liver transplant ([facility]); Alcohol use disorder, severe, dependence (CMS-HCC); Encounter for therapeutic drug monitoring; S/P liver transplant (CMS-HCC); Hypomagnesemia; Hypertension, unspecified type; Gastroesophageal reflux disease, unspecified whether esophagitis present
[2025-04-29 10:58] LABS: Alanine Aminotransferase 104 U/L (12-78); Albumin Level 4.8 g/dl (3.5-5.0); Alkaline Phosphatase 81 U/L (38-126); Anion Gap 17.7 mEq/L (5-15); Aspartate Amino Transferase 122 U/L (17-59); Bilirubin,Direct 0.3 mg/dl (0.0-0.4); Bilirubin,Indirect 0.4 mg/dL (0.0-0.9); Bilirubin,Total 0.7 mg/dl (0.2-1.3); Bilirubin,Unconjugated 0.4 mg/dL (0.0-1.1); Blood Urea Nitrogen 14 mg/dl (9-20); Calcium 9.5 mg/dl (8.4-10.2); Carbon Dioxide 22 mmol/L (22.0-30.0); Chloride 102 mmol/L (98-107); Creatinine,Serum 1.90 mg/dl (0.66-1.25); Estimated Glomerular Filt Rate 39 ml/min (>60); GFR (African American) 48 ML/MIN (>60); Glucose 108 mg/dl (74-100); Magnesium 1.2 mg/dl (1.6-2.3); Phosphorous 6.4 mg/dl (2.5-4.5); Potassium 3.7 mmoL/L (3.5-5.1); Sodium 138 mmol/L (136-145); Total Protein,Serum 7.1 g/dl (6.3-8.2)
[2025-04-30 13:27] LABS: BKV DNA, Quant PCR, Plasma Negative (Negative)
[2025-05-02 04:08] LABS: Tacrolimus (FK506), Blood 13.6 ng/mL (5.0-20.0)
== END 2025-04-29 23:59 | disposition home or self-care (01) ==
LOC: LAB 09:24
PROVIDERS: PCP Nurse Practitioner Family; Visit Provider Surgery
DX: D84.9 Immunodeficiency, unspecified (principal); F10.90 Alcohol use, unspecified, uncomplicated; Z94.4 Liver transplant status; Z94.0 Kidney transplant status; Z79.60 Long term (current) use of unspecified immunomodulators and immunosuppressants
CPT/HCPCS: 36415; 80069; 80076; 80197; 80321; 81001; 82570; 83735; 84156; 85025; 87086

== ENCOUNTER 2025-05-06 10:02 | Outpatient (CLI) | payer OTHER, SELFPAY ==
--- OUTSIDE RECORDS SUMMARY | 2025-03-19 11:30 | XMS_ITS | Encounter Summary ---
Author Organization [facility] Address [address] [place] [id number] Care Team Providers Care Program Manufacturing Leader Name Role Phone Enedina Mcguire APRN Primary Care Provider + Reason for Visit * Surgical (Routine) - Closed Specialty Diagnoses / Procedures Referred By Shane t Referred To Contact Diagnoses Occipital neuralgia of right side Procedures External Facility Surgical/Procedural Request Vazquez Christie PA-C 1760 [facility] 302 [place] [address] Phone: tel: fax: [facility] AT [address] [place] [address] Phone: tel: fax: Referral ID Status Reason Start Date Expiration Date V isits Requested Visits Authorized [id number] Closed Continuity of Care 03/03/2025 06/02/2026 1 1 Encounter Details Date Type Department Care Team (Late st Contact Info) Description 03/19/2025 11:30 AM EST Outside Facility Service [facility] PAIN MANAGEMENT 1760 [place] [address] Tye Song MD 1760 [place] [address] Social History Tobacco Use Types Packs/Day Years Used Date Smoking Tobacco: Former Cigarettes 4 20 Passive Smoke Exposure: Past Smokeless Tobacco: Current Comments:MARIJUANA USE ABOUT 2X PER WEEK - reports no use 08-05-2024 Alcohol Use Standard Drinks/Week Comments Not Currently 0 (1 standard drink = 0.6 oz pure alcohol) 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 [facility] Utilities Answer Date Recorded In the past [...] Brief Depression Severity Measure Score 0 10/02/2022 [facility] of Occupat ional Health - [...] Office Visit [facility] INTERNAL MEDICINE 3374 [place] [address] Enedina Mcguire, SEAM STAYER 3102 [place] [address] 05/21/2025 12:30 PM EST Office Visit [facility] MEDICAL [facility] PAIN MANAGEMENT 3000 [facility] 330 [place] [address] Vazquez Christie PA-C 1760 [facility] [address] [place] [address] documented as of this encounter Visit Diagnoses Not on filedocumented in this encounter Additional Health Concerns Assessment Noted Time PHQ-2 Depression Total Score: 1 12/31/19 24 3:25 PM EDT documented as of this encounter Care Teams Program Manufacturing Leader Relationship Specialty Start Date End Date Enedina Mcguire APRN [address] [place] [address] PCP - General Nurse Practitioner 10/27/24 documented as of this encounter
--- OUTSIDE RECORDS SUMMARY | 2025-05-06 10:05 | XMS_ITS | Encounter Summary ---
Author Organization [facility] Address [address] [place] [address] Care Team Providers Care Public Accountant Name Role Phone Enedina Mcguire APRN Primary Care Provider + Encounter Details Date Type Department Care Team ([facility] st Contact Info) Description 02/23/2025 Results Follow-Up [facility] INTERNAL MEDICINE [address] [place] [address] Enedina Mcguire APRN [address] [place] [address] Social History Tobacco Use Types Packs/Day Years Used Date Smoking Tobacco: Former Cigarettes 4 20 Passive Smoke Exposure: Past Smokeless Tobacco: Current Comments:MARIJUANA USE ABOUT 2X PER WEEK - reports no use 08-05-2024 Alcohol Use Standard Drinks/Week Comments Not Currently 0 (1 standard drink = 0.6 oz pure alcohol) 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 [facility] Utilities Answer Date Recorded In the past 12 months has [employer], [employer], oil, or water [employer] threatened to shut off services in your [...] Brief Depression Severity Measure Score 0 10/02/2022 [facility] - Occupational Stress [...] Visit [facility] [address] [place] [address] Enedina Mcguire APRN [address] [place] [address] [phone] 05/21/2025 12:30 PM EST Office Visit [facility] PAIN [facility]NAGEMENT [address] [address] Vazquez Christie PA-C [address] [place] [address] [address] [place], [place] [id number] documented as of this encounter Visit Diagnoses Not on filedocumented in this encounter Additional Health Concerns Assessment Noted Time PHQ-2 Depression Total Score: 1 12/31/19 24 3:25 PM EDT documented as of this encounter Care Teams Public Accountant Relationship Specialty Start Date End Date Enedina Mcguire APRN [address] [place] [address] PCP - General Nurse Practitioner 10/27/24 documented as of this encounter
--- OUTSIDE RECORDS SUMMARY | 2025-05-06 10:05 | XMS_ITS | Encounter Summary ---
Author Organization [facility] Address [address] [place] [address] Care Team Providers Care Seo Professional Name Role Phone Enedina Mcguire APRN Primary Care Provider + Encounter Details Date Type Department Care Team (Late st Contact Info) Description 03/19/2025 Documentation [facility] PAIN [facility]EMENT [address] [address] Tye Song MD 1760 [facility] [address] [place] [address] Social History Tobacco Use Types Packs/Day Years [...] Recorded In the past 12 months has [employer], gas, oil, or water [employer] threatened to shut off services in your [...] 0 10/02/2022 [facility] - Occupational [...] GED or equivalent No 07/09/2024 Preferred Language Hong Konger 07/09/2024 PHQ-2 Answer Date Recorded Patient Health Questionnaire-2 Score 0 03/03/2025 Sex and Gender Information Value Date Recorded Sex Assigned at Male 08/20/2024 8:28 PM EDT Legal Sex Male 7:45 AM EDT Gender Identity Not on file Sexual Orientation Not on file documented as of this encounter Progress Notes * Tye Song MD - 03/19/2025 9:37 AM EST [facility] [address] [place] [address] 03/19/2025 PROCEDURE: Greater Occipital Nerve Block -RIGHT [...] discharge. FOLLOW UP: As scheduled ADDITIONAL NOTES: [facility] Tye Song MD documented in this encounter Plan of Treatment Upcoming Encounters Date Type Department Care Team (Late st Contact Info) Description 05/18/2025 2:30 PM EST Office Visit [facility] INTER[facility] [address] [place] [phone] Enedina Mcguire APRN [address] [place] [address] [phone] 05/21/2025 12:30 PM EST Office Visit [facility]IN [facility] [address] [address] Vazquez Christie PA-C [address] [place], [place] [phone] documented as of this encounter Visit Diagnoses Not on filedocumented in this encounter Additional Health Concerns Assessment Noted Time PHQ-2 Depression Total Score: 1 12/31/19 24 3:25 PM EDT documented as of this encounter Care Teams Seo Professional Relationship Specialty Start Date End Date Enedina Mcguire APRN [address] [place] [address] [phone] PCP - General Nurse Practitioner 10/27/24 documented as of this encounter
--- OUTSIDE RECORDS SUMMARY | 2025-05-06 10:05 | XMS_ITS | Encounter Summary ---
Author Organization [facility] Address [address] [place] [address] Care Team Providers Care Fiberglass Tube Molder Name Role Phone Enedina Mcguire APRN Primary Care Provider + Encounter Details Date Type Department Care Team ([facility] st Contact Info) Description 10/07/2024 Results Follow-Up [facility] INTERNAL MEDIC[facility] [address] [place] [address] Enedina Mcguire APRN [address] [place] [address] Social History Tobacco Use Types [...] In the past 12 months has [employer], [employer], oil, or water [employer] threatened to shut off services in [...] Score 0 10/02/2022 [facility] - Occupational [...] GED or equivalent No 07/09/2024 Preferred Language Senegalese 07/09/2024 PHQ-2 Answer Date Recorded Patient Health [...] [facility] [address] [place] [address] Enedina Mcguire APRN [address] [place] [address] [phone] 05/21/2025 12:30 PM EST Office Visit [facility] [address] [address] Vazquez Christie PA-C [address] [place] [address] [address] [place], [place] [phone] documented as of this encounter Visit Diagnoses Not on filedocumented in this encounter Additional Health Concerns Assessment Noted Time PHQ-2 Depression Total Score: 1 12/31/19 24 3:25 PM EDT documented as of this encounter Care Teams Fiberglass Tube Molder Relationship Specialty Start Date End Date Enedina Mcguire APRN [address] [place] [address] PCP - General Nurse Practitioner 10/27/24 documented as of this encounter
--- OUTSIDE RECORDS SUMMARY | 2025-05-06 10:05 | XMS_ITS | Encounter Summary ---
Author Organization [facility] Address [address] [place] [address] Care Team Providers Care Groundskeeping Yardman Name Role Phone Enedina Mcguire APRN Primary Care Provider + Reason for Visit * Reason Onset Date Comments Med Refill 03/16/2025 Encounter Details Date Type Department Care Team ([facility] st Contact Info) Description 03/15/2025 Refill [facility] INTERNAL MEDICINE [address] [place] [address] Enedina Mcguire APRN [address] [place] [address] Acquired hypothyroidism Social History Tobacco Use Types Packs/Day Years Used Date Smoking Tobacco: Former Cigarettes 4 20 Passive Smoke Exposure: Past Smokeless Tobacco: Current Comments:MARIJUANA USE ABOUT 2X PER WEEK - reports no use 08-05-2024 Alcohol Use Standard Drinks/Week Comments Not Currently 0 (1 standard drink = 0.6 oz pure alcohol) 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 [facility] Utilities Answer Date Recorded In the past 12 months has [employer], gas, oil, or water company threatened to [...] 10/02/2022 [facility] - Occupational Stress [...] GED or equivalent No 07/09/2024 Preferred Language Divehi 07/09/2024 PHQ-2 Answer Date Recorded Patient Health [...] 05/18/2025 2:30 PM EST Office Visit [facility] INTERNAL MEDICINE [address] [place] [address] Enedina Mcguire, METAL TEMPERER [address] [place] [address] 05/21/2025 12:30 PM EST Office Visit [facility] PAIN MANAGEMENT [address] [place] [address] Vazquez Christie PA-C [address]60 [facility] [address] [place] [address] documented as of this encounter Visit Diagnoses Diagnosis Acquired hypothyroidism Unspecified hypothyroidism documented in this encounter Additional Health Concerns Assessment Noted Time PHQ-2 Depression Total Score: 1 12/31/19 24 3:25 PM EDT documented as of this encounter Care Teams Groundskeeping Yardman Relationship Specialty Start Date End Date Enedina Mcguire APRN [address] [place] [address] PCP - General Nurse Practitioner 10/27/24 documented as of this encounter
--- OUTSIDE RECORDS SUMMARY | 2025-05-06 10:05 | XMS_ITS | Encounter Summary ---
Author Organization [facility] Address [address] [place] [address] Care Team Providers Care Vision Care Associate Name Role Phone Enedina Mcguire APRN Primary Care Provider + Reason for Visit * Reason Comments Med Refill Encounter Details Date Type Department Care Team ([facility] st Contact Info) Description 03/16/2025 Refill [facility] [address] [place] [address] Enedina Mcguire APRN [address] [place] [address] Erectile dysfunction, unspecified erectile dysfunction [...] Recorded In the past 12 months has [employer], gas, oil, or water [employer] threatened to shut off services in your [...] Score 0 10/02/2022 [facility] - Occupational Stress Questionnaire [...] [facility] [address] [place] [address] Enedina Mcguire, RAMBO [address] [place] [address] 05/21/2025 12:30 PM EST Office Visit [facility] PAIN [facility]EMENT 3000 [facility] [address] [place] [address] Vazquez Christie PA-C [address] [facility] [address] [place] [address] documented as of this encounter Visit Diagnoses Diagnosis Erectile dysfunction, unspecified erectile dysfunction type documented in this encounter Additional Health Concerns Assessment Noted Time PHQ-2 Depression Total Score: 1 12/31/19 24 3:25 PM EDT documented as of this encounter Care Teams Vision Care Associate Relationship Specialty Start Date End Date Enedina Mcguire APRN [address] [place] [id number] PCP - General Nurse Practitioner 10/27/24 documented as of this encounter
--- OUTSIDE RECORDS SUMMARY | 2025-05-06 10:05 | XMS_ITS | Encounter Summary ---
Author Organization [facility] Address [address] [place] [address] Care Team Providers Care Home Lighting Adviser Name Role Phone Enedina Mcguire APRN Primary Care Provider + Reason for Visit * Reason Comments Med Refill Encounter Details Date Type Department Care Team (Late st Contact Info) Description 07/20/2022 Refill [facility] GA[facility] [address] [place] [phone] Lj Tapia APRN [address] [place] [address] Secondary esophageal varices without bleeding Social History [...] or training? Not on file Preferred Language Serbian 07/03/2022 Sex and Gender Information Value Date [...] [facility] [address] [place] [address] Enedina Mcguire APRN [address] [place] [address] [phone] 05/21/2025 12:30 PM EST Office Visit [facility] PAIN [facility] 3000 [facility] [address] [place] [address] Vazquez Christie PA-C [address]60 [facility] [address] [place] [address] documented as of this encounter Visit Diagnoses Diagnosis Secondary esophageal varices without bleeding documented in this encounter Additional Health Concerns Infection Onset Date Last Indicated Resolved Time COVID Screen (preop/placement) 07/28/2022 07/28/2022 07/29/2022 12:00 AM EDT documented as of this encounter Care Teams Home Lighting Adviser Relationship Specialty Start Date End Date Enedina Mcguire APRN [address] [place] [address] PCP - General Nurse Practitioner 10/27/24 documented as of this encounter
--- OUTSIDE RECORDS SUMMARY | 2025-05-06 10:05 | XMS_ITS | Encounter Summary ---
Author Organization [facility] Address [address] [place] [address] Care Team Providers Care Marketing Information Coordinator Name Role Phone Enedina Mcguire APRN Primary Care Provider + Reason for Visit * Reason Onset Date Comments Med Refill 04/07/2025 Encounter Details Date Type Department Care Team ([facility] st Contact Info) Description 04/07/2025 Refill [facility] INTERNAL MEDICINE [address] [place] [address] Enedina Mcguire APRN [address] [place] [address] Social History Tobacco Use Types [...] Recorded In the past 12 months has [employer], gas, oil, or water [employer] threatened to shut off services in [...] Brief Depression Severity Measure Score 0 10/02/2022 [facility] - Occupational Stress Questionnaire Answer Date [...] 2:30 PM EST Office Visit [facility] INTERNAL MEDICINE [address] [place] [address] Enedina Mcguire, WORM FARM LABORER [address] [place] [address] 05/21/2025 12:30 PM EST Office Visit [facility] PAIN MANAGEMENT 3000 [facility] 330 [place] [address] Vazquez Christie PA-C 1760 [facility] [address] [place] [address] documented as of this encounter Visit Diagnoses Not on filedocumented in this encounter Additional Health Concerns Assessment Noted Time PHQ-2 Depression Total Score: 1 12/31/19 24 3:25 PM EDT documented as of this encounter Care Teams Marketing Information Coordinator Relationship Specialty Start Date End Date Enedina Mcguire APRN [address] [place] [address] PCP - General Nurse Practitioner 10/27/24 documented as of this encounter
--- OUTSIDE RECORDS SUMMARY | 2025-05-06 10:05 | XMS_ITS | Encounter Summary ---
Author Organization [facility] Address [address] [place] [address] Care Team Providers Care Webbing Inspector Name Role Phone Enedina Mcguire APRN Primary Care Provider + Reason for Visit * Reason Onset Date Comments Med Refill 03/20/2025 Encounter Details Date Type Department Care Team ([facility] st Contact Info) Description 03/19/2025 Refill [facility] INTER[facility] MEDICINE [address] [place] [address] Enedina Mcguire APRN [address] [place] [address] Low testosterone in male Social [...] Recorded In the past 12 months has [employer], gas, oil, or water [employer] threatened to shut off services in your [...] 0 10/02/2022 [facility] - Occupational [...] [facility] INTER[facility] [address] [place] [address] Enedina Mcguire APRN [address] [place] [address] 05/21/2025 12:30 PM EST Office Visit [facility] PAIN [facility]EMENT 3000 [facility] [address] [place] [address] Vazquez Christie PA-C 1760 [facility] [address] [place] [address] documented as of this encounter Visit Diagnoses Diagnosis Low testosterone in male documented in this encounter Additional Health Concerns Assessment Noted Time PHQ-2 Depression Total Score: 1 12/31/19 24 3:25 PM EDT documented as of this encounter Care Teams Webbing Inspector Relationship Specialty Start Date End Date Enedina Mcguire, APPLICATION SUPPORT ENGINEER [address] [place] [address] PCP - General Nurse Practitioner 10/27/24 documented as of this encounter
--- OUTSIDE RECORDS SUMMARY | 2025-05-06 10:06 | XMS_ITS | Clinical Summary ---
Author Organization [facility] Address [address] [place] [address] Care Team Providers Care Guest Room Attendant Name Role Phone Lj Tapia RAMBO Unavailable [phone] Enedina Mcguire APRN Primary Care Provider + [...] answer 07/14/2024 How often do you attend [facility] or anabaptist services? Patient unable to answer 07/14/2024 Do you belong to any clubs o r organizations such as mosque groups, unions, fraternal or athletic groups, or [...] 09/29/2024 [facility] ional Health [...] drink first t deborah in the morning (EYE-CUT OUT STITCHER) to steady your nerves or to get rid of a hangover? 0 07/19/2024 CAGE Questionnaire Score 2 025 Utilities Answer Date Recorded In the past 12 months has th Health: [employer], gas, oil, or water company threatened to [...] 2 - 13+ 2-dose series) 10/11/2010 09/13/2010 [id number] Vaccine (4 - 2024- season) 2025 03/17/2021, [...] this topic Medical Devices Implanted Type Area Crm Technical Lead Device Identifier Shelf Expiration Date Model / Serial / Lot Concerto [place] Coil-07/03/2022 Implanted:06/15 by Timmy Brunner MD (Quantity not on file) Coil Abdomen Description:Multiple Coil Co ncerto Pgla [place] Detach COILS implanted on 07/03/2022 by Timmy Brunner MD at [facility]--info can be found in Care Everywhere for [facility] as of 11/15/23 Dona Coil-07/03/2022 Implanted:06/15 by Timmy Brunner MD (Quantity not on file) Coil Abdomen [employer] Description:Coil Emb Dona 3.7/Implanted: Qty: 1 on 07/03/2022 by Timmy Brunner MD at [facility] Plate Plate N/A: Neck Plug Vasc Anton Emb Amplatzer Implanted:06/15 by Timmy Brunner MD (Quantity not on file) Plug Other Vein / / [id number] Description:Plug Vasc Anton Em b Ampltz .027 [id number] - [id number] Implanted: Qty: 1 on 07/03/2022 by Timmy Brunner MD at [facility] Stent Gastro Panc 5fr 5cm - [id number] Implanted:Qty: 1 on 11/20/2023 by Devang Mcghee, ЮЛИЯ at [facility] Pancreas [employer]-[id number] 08/13/2026 [id number] / / [id number] Procedures Procedure Name Priority Date/Time Associated Diagnosis [...] ORDERA BLES Final Result Performing Organization Address City/[facility]/ZIP Co de Phone Number [facility]ALTH[facility]ARE [facility] [address] [place] [address] * Hepatitis C Antibody (07/14/2024 4:31 PM EST) [facility] Signature Hepatitis C Antibody Negative Negative 07/14/2024 5:27 PM EST [facility] Blood Venous blood specimen / Unknown Venipuncture / Unknown 07/14/2024 4:31 PM EST 07/14/2024 4:54 PM EST Laureano Salinas APRN, [facility] BLOOD ORDERA BLES Final Result Performing Organization Address City/[facility] Co de Phone Number [facility]ALTH[facility]ARE [facility] [address] [place] [address] from Last 3 Months or Most Recently Relevant to Health Maintenance Insurance [facility] [employer] [facility] Advance Directives * Full Code (Latest Code Status on File) Date Activated Date Inactivated Comments 07/11/2024 11:04 PM 07/23/2024 6:27 PM Question Answer Comments Patient has decision-making capacity? Yes * Full Code Date Activated Date Inactivated Comments 11/14/2023 10:15 PM 11/27/2023 9:08 PM Question Answer Comments Patient has decision-making capacity? Yes Care Teams Guest Room Attendant Relationship Specialty Start Date End Date Enedina Mcguire APRN [address] [place] [address] PCP - General 12/04/22 Lj Tapia APRN [address] Referring Physician Gastroenterology 07/18/22
--- OUTSIDE RECORDS SUMMARY | 2025-05-06 10:06 | XMS_ITS | Encounter Summary ---
Author Organization Healthcare Address [address] [place] [address] Care Team Providers Care Manager Unix Name Role Phone Jony Conde MD Primary Care Provider [phone] Lj Tapia BINGO USHER Unavailable [phone] Enedina Mcguire BINGO USHER Primary Care Provider + Nuria Fall MACHINE WELT BUTTER Unavailable Unavaila ble Encounter Details Date Type Department Care Team (Late st Contact Info) Description 07/03/2022 Orders Only External Location [address] [place] [address] [place] [address] Social History Tobacco Use Types Packs/Day Years [...] filedocumented in this encounter Care Teams Manager Unix Relationship Specialty Start Date End Date Jony Conde MD #[id number] PCP - General 07/18/22 12/03/22 Enedina Mcguire APRN [address] [place] [address] PCP - General 12/04/22 Lj Tapia APRN 874[address] Referring Physician Gastroenterology 07/18/22 Nuria Fall LPN [facility] None TCM Nurse 07/24/24 08/23/24 documented as of this encounter
--- OUTSIDE RECORDS SUMMARY | 2025-05-06 10:06 | XMS_ITS | Clinical Summary ---
Author Organization [facility] Address [address] [place] [address] Care Team Providers Care Reducing Salon Attendant Name Role Phone Enedina Mcguire APRN Primary [...] Activ e vitamin D (ERGOCALCIFEROL) 1.25 MG (66202 UT) capsule capsuleIndications :Vitamin D deficiency Take [...] Type Department Care Team Description 04/18/2025 Refill [facility] [address] [place] [phone] Enedina Mcguire APRN Low testosterone in male 04/15/2025 Refill [facility] [address] [place] [phone] Enedina Mcguire APRN Low testosterone in male 04/07/2025 Refill [facility] [address] [place] [phone] Enedina Mcguire APRN 03/19/2025 11:30 AM EST Outside Facility Service [facility] [address] [phone] Tye Song MD 03/19/2025 Refill [facility] [address] [place] [phone] Enedina Mcguire APRN Low testosterone in male 03/19/2025 Documentation [facility] [address] [facility] [address] [place] [phone] Tye Song MD 03/16/2025 Refill [facility] [address] [place] [phone] Enedina Mcguire APRN Erectile dysfunction, unspecified erectile dysfunction type 03/15/2025 Refill [facility] [address] [place] [phone] Enedina Mcguire, RAMBO Acquired hypothyroidism 03/03/2025 1:45 PM EDT Office Visit [facility] [address] [facility] [address] [place] [address] Vazquez Christie PA-C Occipital neuralgia of right side (Primary Dx); Cervical spondylosis without myelopathy; Cervical pain (neck); Long-term use of high-risk medication; Cervical radiculopathy; Therapeutic drug monitoring; Chronic pain syndrome 03/03/2025 Travel 03/02/2025 Telephone [facility] [address] [phone] Georgina Rainey MA 02/23/2025 Prior Authorization [facility] [address] [place] [phone] Enedina Mcguire APRN 02/23/2025 Results Follow-Up [facility] [address] [place] [phone] Enedina Mcguire, POSTAL CARRIER 02/20/2025 Telephone [facility] [address] [place] [phone] Enedina Mcguire APRN Results 02/20/2025 Telephone [facility] [address] [phone] Georgina Rainey MA 02/19/2025 7:45 AM EDT Outside Facility Service [facility] [address] [phone] Tye Song MD 02/19/2025 Documentation [facility] [address] [phone] Tye Song MD 02/17/2025 3:15 PM EDT Office Visit [facility] [address] [place] [phone] Enedina Mcguire, POSTAL CARRIER Encounter for follow-up (Primary Dx); Kidney transplant recipient; Liver transplant recipient; Vitamin D deficiency; Low testosterone in male; History of systemic steroid therapy 02/17/2025 Telephone [facility] [address] [place] [phone] Enedina Mcguire APRN 02/17/2025 Travel 02/11/2025 Telephone [facility] [address] [phone] Tye Song MD [facility]- INJECTION SCHEDULE from [...] Recorded In the past 12 months has [employer] gas, oil, or water [employer] threatened to shut off services in [...] Score 0 10/02/2022 [facility] - Occupational [...] GED or equivalent No 07/09/2024 Preferred Language Palauan 07/09/2024 PHQ-2 Answer Date Recorded Patient Health [...] [facility] [address] [place] [address] Enedina Mcguire, RAMBO [address] [place], [place] [id number] 05/21/2025 12:30 PM EST Office Visit [facility] [address] [facility] [address] [place] [address] Vazquez Christie PA-C [address] [facility] [address] [place] [address] Health Maintenance Due Date Last [...] 0-49 Discontinued Medical Devices Implanted Type Area Project Builder Device Identifier Shelf Expiration Date Model / Serial / Lot Coil Concerto Pgla Hel Detach Sys 10mm 30cm - [id number] Implanted:Qty: 1 on 07/03/2022 by Timmy Brunner MD at [facility] Implant Left: Vein EV3 A [employer] [id number] / / [id number] Description:Coil is in the s hort gastric vein Coil Concerto Nyl Brush Detach Sys 10mm 30cm - [id number] Implanted:Qty: 1 on 07/03/2022 by Timmy Brunner MD at [facility] Implant Left: Vein EV3 [employer] [id number] / / [id number] Description:Short gastric ve in Coil Concerto Nyl Brush Detach Sys 10mm 30cm - [id number] Implanted:Qty: 1 on 07/03/2022 by Timmy Brunner MD at [facility] Implant Left: Vein EV3 [employer] [id number] / / [id number] Description:Short gasrtic ve in Coil Concerto Nyl Brush Detach Sys 10mm 30cm - [id number] Implanted:Qty: 1 on 07/03/2022 by Timmy Brunner MD at [facility] Implant Left: Vein EV3 [employer] [id number] / / [id number] Description:Short gastric ve in Coil Concerto Nyl Brush Detach Sys 8mm 30cm - [id number] Implanted:Qty: 1 on 07/03/2022 by Timmy Brunner MD at [facility] Implant Left: Vein [employer]3 [employer] [id number] / / [id number] Description:Short gastric ve in Coil Concerto Nyl Brush Detach Sys 8mm 30cm - [id number] Implanted:Qty: 1 on 07/03/2022 by Timmy Brunner MD at [facility] Implant Left: Vein EV3 [employer] [id number] / / [id number] Description:Short gastric ve in Sys Del Liq Emb Trufill Nbca 1g Vl - [id number] Implanted:Qty: 1 on 07/03/2022 by Timmy Brunner MD at [facility] Implant Left: Vein [facility] [id number] / / [id number] Description:Short gastric ve in Plug Vasc Anton Emb Ampltz .027 5xs3r35sv - [id number] Implanted:Qty: 1 on 07/03/2022 by Timmy Brunner MD at [facility] Implant Left: Vein [employer] [id number] / / [id number] Description:Coronary vein Coil Concerto Nyl Brush Detach Sys 8mm 30cm - [id number] Implanted:Qty: 1 on 07/03/2022 by Timmy Brunner MD at [facility] Implant Left: Vein EV3 A [employer] [id number] / / [id number] Description:CORONARY VEIN Gelatin Emb Embocube 5.02mm 50mg Red - [id number] Implanted:Qty: 1 on 07/03/2022 by Timmy Brunner MD at [facility] Implant Left: Vein [employer] [id number] / / [id number] Description:SHORT GASTRIC VE IN Coil Emb Dona 3.7/Lp .035in 14cm 12mm - [id number] Implanted:Qty: 1 on 07/03/2022 by Timmy Brunner MD at [facility] Implant Left: Vein [employer] [id number] / / [id number] Description:SHORT GASTRIC VE IN Coil Concerto Pgla Brush Detach Sys 12mm 30cm - [id number] Implanted:Qty: 1 on 07/03/2022 by Timmy Brunner MD at [facility] Implant Left: Vein [employer] [id number] / / [id number] Description:Short gastric ve in Coil Concerto Nyl Brush Detach Sys 8mm 30cm - [id number] Implanted:Qty: 1 on 07/03/2022 by Timmy Brunner MD at [facility] Implant Left: Vein [employer]3 [employer] [id number] / / [id number] Description:SHORT GASTRIC VE IN Coil Concerto Nyl Brush Detach Sys 8mm 30cm - [id number] Implanted:Qty: 1 on 07/03/2022 by Timmy Brunner MD at [facility] Implant Left: Vein [employer]3 [employer] [id number] / / [id number] Description:Short gastric ve in Coil Concerto Nyl Brush Detach Sys 8mm 30cm - [id number] Implanted:Qty: 1 on 07/03/2022 by Timmy Brunner MD at [facility] Implant Left: Vein EV3 [employer] [id number] / / [id number] Description:Short gastric ve in Coil Concerto Pgla Hel Detach Sys 14mm 40cm - [id number] Implanted:Qty: 1 on 07/03/2022 by Timmy Brunner MD at [facility] Implant Left: Vein [employer] [id number] / / [id number] Description:Short gastric ve in Coil Concerto Pgla Hel Detach Sys 14mm 40cm - [id number] Implanted:Qty: 1 on 07/03/2022 by Timmy Brunner MD at [facility] Implant Left: Vein [employer]3 [employer] [id number] / / [id number] Description:Short gastric ve in Coil Concerto Pgla Brush Detach Sys 14mm 30cm - [id number] Implanted:Qty: 1 on 07/03/2022 by Timmy Brunner MD at [facility] Implant Left: Vein EV3 [employer] [id number] / / [id number] Description:Short gastric ve in Coil Concerto Pgla Brush Detach Sys 14mm 30cm - [id number] Implanted:Qty: 1 on 07/03/2022 by Timmy Brunner MD at [facility] Implant Left: Vein EV3 [employer] [id number] / / [id number] Description:Short gastric ve in Coil Concerto Pgla Brush Detach Sys 14mm 30cm - [id number] Implanted:Qty: 1 on 07/03/2022 by Timmy Brunner MD at [facility] Implant Left: Vein [employer]3 [employer] [id number] / / [id number] Description:Short gastric ve in Procedures Procedure Name [...] ve Non-Reacti ve 07/09/2024 2:07 PM EST [facility] Hep A IgM Non-Reacti ve Non-Reacti ve 07/09/2024 2:07 PM EST [facility] Hep B C IgM Non-Reacti ve Non-Reacti ve 07/09/2024 2:07 PM EST [facility] Hepatitis C Ab Non-Reacti ve Non-Reacti ve 07/09/2024 2:07 PM EST [facility] Blood Line / Unknown 07/08/2024 10 :33 PM EST 07/08/2024 10:42 PM EST Narrative [facility] - 07/09/2024 2:07 PM EST Results may be falsely decreased if patient taking Biotin. Chiquis JACOME LAB BLOOD ORDERABLES Final Resu lt [facility]
[address] [place] [address], * (ABNORMAL) Lipid Panel (10/15/2023 4:16 PM [...] [facility]
[address] [place] [address], from Last 3 Months or Most Recently [...] Of Support Discussed With: Patient Care Teams Reducing Salon Attendant Relationship Specialty Start Date End Date Enedina Mcguire APRN [address] [place] [address] PCP - General Nurse Practitioner 10/27/24
--- OUTSIDE RECORDS SUMMARY | 2025-05-06 10:06 | XMS_ITS | Referral Summary ---
Author Organization [employer] ([place], [place], [place], [place], [place]) Address [address] [place] [address] Care Team Providers Care Metal Reclamation Kettle Tender Name Role Phone Unavailable Primary Care [...]
--- OUTSIDE RECORDS SUMMARY | 2025-05-06 10:06 | XMS_ITS | Clinical Summary ---
Author Organization [employer] ([place], [place], [place], [place], [place]) Address [address] [place] [address] Care Team Providers Care Internet Marketing Executive Name Role Phone Unavailable Primary Care [...]
--- OUTSIDE RECORDS SUMMARY | 2025-05-06 10:06 | XMS_ITS | Encounter Summary ---
Author Organization [facility] Address [address] [place] [address] Care Team Providers Care Social Services Manager Name Role Phone Enedina Mcguire APRN Primary Care Provider + Reason for Visit * Reason Onset Date Comments Med Refill 04/18/2025 Encounter Details Date Type Department Care Team ([facility] st Contact Info) Description 04/18/2025 Refill [facility] [address] [place] [address] Enedina Mcguire APRN [address] [place] [address] Low testosterone in male Social [...] Recorded In the past 12 months has [employer], gas, oil, or water [employer] threatened to shut off services in [...] Score 0 10/02/2022 [facility] - Occupational Stress Questionnaire Answer [...] GED or equivalent No 07/09/2024 Preferred Language Kazakh 07/09/2024 PHQ-2 Answer Date Recorded Patient Health [...] Office Visit [facility] [address] [place] [phone] Enedina Mcguire APRN [address] [place] [phone] 05/21/2025 12:30 PM EST Office Visit [facility] [address] [phone] Vazquez Christie PA-C 1760 [facility] [address] [place] [address] documented as of this encounter Visit Diagnoses Diagnosis Low testosterone in male documented in this encounter Additional Health Concerns Assessment Noted Time PHQ-2 Depression Total Score: 1 12/31/19 24 3:25 PM EDT documented as of this encounter Care Teams Social Services Manager Relationship Specialty Start Date End Date Enedina Mcguire APRN [address] [place] [address] PCP - General Nurse Practitioner 10/27/24 documented as of this encounter
--- OUTSIDE RECORDS SUMMARY | 2025-05-06 10:06 | XMS_ITS | Encounter Summary ---
Author Organization [facility] Address [address] [place] [address] Care Team Providers Care Subway Car Repairer Name Role Phone Enedina Mcguire APRN Primary Care Provider + Encounter Details Date Type Department Care Team ([facility] st Contact Info) Description 10/07/2024 Results Follow-Up [facility] [address] [place] [address] Enedina Mcguire APRN [address] [place] [address] Social History Tobacco Use Types [...] In the past 12 months has [employer], [employer], oil, or water [employer] threatened to shut off services in your [...] 10/02/2022 [facility] - Occupational Stress Questionnaire Answer [...] GED or equivalent No 07/09/2024 Preferred Language Afghan 07/09/2024 PHQ-2 Answer Date Recorded Patient Health [...] Visit [facility] [address] [place] [address] Enedina Mcguire APRN [address] [place] [phone] 05/21/2025 12:30 PM EST Office Visit [facility] [address] [address] Vazquez Christie PA-C [address] [place] [address] [address] [place], [place] [id number] documented as of this encounter Visit Diagnoses Not on filedocumented in this encounter Additional Health Concerns Assessment Noted Time PHQ-2 Depression Total Score: 1 12/31/19 24 3:25 PM EDT documented as of this encounter Care Teams Subway Car Repairer Relationship Specialty Start Date End Date Enedina Mcguire APRN [address] [place] [address] PCP - General Nurse Practitioner 10/27/24 documented as of this encounter
--- OUTSIDE RECORDS SUMMARY | 2025-05-06 10:06 | XMS_ITS | Encounter Summary ---
Author Organization [facility] Address [address] [place] [address] Care Team Providers Care Lumpia Wrapper Maker Name Role Phone Enedina Mcguire APRN Primary Care Provider + Reason for Visit * Reason Onset Date Comments Med Refill 04/16/2025 Encounter Details Date Type Department Care Team ([facility] st Contact Info) Description 04/15/2025 Refill [facility] [address] [place] [address] Enedina Mcguire APRN [address] [place] [address] Low testosterone in male Social History Tobacco Use Types Packs/Day Years Used Date Smoking Tobacco: Former Cigarettes 4 20 Passive Smoke Exposure: Past Smokeless Tobacco: Current Comments:MARIJUANA USE ABOUT 2X PER WEEK - reports no use 08-05-2024 Alcohol Use Standard Drinks/Week Comments Not Currently 0 (1 standard drink = 0.6 oz pure alcohol) 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 [facility] Utilities Answer Date Recorded In the past 12 months has [employer], gas, oil, or water [employer] threatened to shut off services in your [...] Score 0 10/02/2022 [facility] - Occupational Stress Questionnaire Answer [...] [facility] [address] [place] [address] Enedina Mcguire, ANTIQUE AUTOMOBILES REPAIRER [address] [place] [address] 05/21/2025 12:30 PM EST Office Visit [facility] [address] [address] Vazquez Christie PA-C [address] [address] documented as of this encounter Visit Diagnoses Diagnosis Low testosterone in male documented in this encounter Additional Health Concerns Assessment Noted Time PHQ-2 Depression Total Score: 1 12/31/19 24 3:25 PM EDT documented as of this encounter Care Teams Lumpia Wrapper Maker Relationship Specialty Start Date End Date Enedina Mcguire APRN [address] [place] [address] PCP - General Nurse Practitioner 10/27/24 documented as of this encounter
--- OUTSIDE RECORDS SUMMARY | 2025-05-06 10:06 | XMS_ITS | Encounter Summary ---
Author Organization [employer] ([place], [place], [place], [place], [place]) Address [address] [place] [address] Care Team Providers Care Paying Teller Name Role Phone Unavailable Primary Care Provider Carmen e Encounter Details Date Type Department Care Team (Late st Contact Info) Description 06/03/2018 Transcribed Document [facility] [place] [facility] [place] [address] ProviderEbenezer MD [address] [place], [place] [id number] Social History Tobacco Use Types Packs/Day Years [...] - Historical ProviderMD - 06/03/2018 1:05 PM CORRECTIONAL COUNSELOR Patient: JULIEN ZELAYA Age: 33 years Sex: [...] 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 lacerations noted with bleeding controlled . [...] EST Height Source Stated Height Entry Format [place] Height/Length, COMORAN (ft) 6 ft Height/Length COMORAN 4 Inch CLINICALHEIGHT 193.04 cm [place] Body Weight 85.74 kg Weight Source, ED Standing scale Weight Entry Format [place] Weight Sinhala lb 265 lb CLINICALWEIGHT 120.45 kg Body [...] 14:22 EST, Discharge to: Home. Prescriptions: Prescription Mortar Mixer Operator Pharmacy: Keflex 500 mg oral capsule (Prescribe): [...] Electronically signed by Luis Eduardo Ochoa Conversion Director Of Online Merchandising Cerner at 08/29/2022 6:34 PM CDT documented in this encounter Plan of Treatment Not on file documented as of this encounter Visit Diagnoses Not on filedocumented in this encounter
--- OUTSIDE RECORDS SUMMARY | 2025-05-06 10:06 | XMS_ITS | Encounter Summary ---
Author Organization [employer] ([place], [place], [place], [place], [place]) Address [address] [place] [address] Care Team Providers Care Aquatic Habitat Biologist Name Role Phone Unavailable Primary Care Provider Unavailabl e Encounter Details Date Type Department Care Team (Late st Contact Info) Description 06/03/2018 Transcribed Document [facility] [facility] [place] [facility] [place] [address] ProviderEbenezer MD [address] [place] [address] Social History Tobacco Use Types [...] - Historical ProviderMD - 06/03/2018 12:08 PM CARTRIDGE GAUGER ED Triage Entered On: 06/03/2018 12:17 EST Performed On: 06/03/2018 12:12 EST by KANU VELEZ RN ED Triage Across the Room Triage Date/Time : 06/03/2018 12:12 EST Chief Complaint : lacerations to rt index and left middle finger 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 lacerations noted with bleeding controlled KANU VELEZ RN - 06/03/2018 12:12 EST DCP GENERIC CODE Tracking Acuity : 3 - Urgent Tracking Group : [facility] KANU VELEZ RN - [...] 12:17:41 EST) Problems(Active) HTN (hypertension) (SNOMED CT :[id number] ) Name of Problem: HTN (hypertension) ; Recorder: KANU VELEZ RN; Confirmation: Confirmed ; Classification: Medical ; Code: [id number] ; Contributor System: Pantry ; Last Updated: 06/03/2018 12:14 EST ; Life Cycle Date: 06/03/2018 ; Life Cycle Status: Active ; Vocabulary: SNOMED CT Diagnoses(Active) Finger laceration Date: 06/03/2018 ; Diagnosis Type: Reason For Visit ; Confirmation: Complaint of ; Clinical Dx: Finger laceration ; Classification: Medical ; Clinical Service: Emergency medicine ; Code: PNED ; Probability: 0 ; Diagnosis Code: [id number] ED Height and Weight Height Source : Stated Height Entry Format : [place] Height, Feet : 6 ft(Converted to: 183 cm, 72 Inch) Height, Inches : 4 Inch(Converted to: 0 ft 4 Inch, 10.16 cm) Clinical Height : 193.04 cm Weight Source, ED : Standing scale Weight Entry Format : [place] Weight, Pounds : 265 lb Clinical Dosing Weight : 120.45 kg Body Surface Area (BSA) : 2.5 m2 Body Mass Index : 32.3 kg/m2 (HI) [place] Body Weight (IBW) : 85.74 kg KANU [...]
--- OUTSIDE RECORDS SUMMARY | 2025-05-06 10:06 | XMS_ITS | Encounter Summary ---
Author Organization [employer] ([place], [place], [place], [place], [place]) Address [address] [place] [address] Care Team Providers Care Pmo Analyst Name Role Phone Unavailable Primary Care Provider Unavailabl e Encounter Details Date Type Department Care Team (Late st Contact Info) Description 06/03/2018 Transcribed Document [facility] Medicine [facility] [place] [address] ProviderEbenezer MD [address] [place], [place] [id number] Social History Tobacco Use Types Packs/Day Years [...] - Historical ProviderMD - 06/03/2018 3:03 PM CAR PILOT ED Discharge Entered On: 06/03/2018 15:03 EST Performed On: 06/03/2018 15:03 EST by Lizeth Almeida, animal scientist Process Patient Disposition : Discharge Personal Belongings [...] - 06/03/2018 15:03 EST Electronically signed by [facility] Conversion Steam Finisher Ceremmett at 08/29/2022 6:35 PM CDT documented in this encounter Plan of Treatment Not on file documented as of this encounter Visit Diagnoses Not on filedocumented in this encounter
--- OUTSIDE RECORDS SUMMARY | 2025-05-06 10:06 | XMS_ITS | Encounter Summary ---
Author Organization [employer] ([place], [place], [place], [place], [place]) Address [address] [place] [address] Care Team Providers Care Die Cleaner Name Role Phone Unavailable Primary Care Provider Unavailabl e Encounter Details Date Type Department Care Team (Late st Contact Info) Description 06/03/2018 Transcribed Document [facility] [place] [address] [place] [address] ProviderEbenezer MD [address] [place], [place] [phone] Social History Tobacco Use Types Packs/Day Years [...] - Historical ProviderMD - 06/03/2018 12:08 PM CHECK WEIGHER ED Assessment Entered On: 06/03/2018 14:51 EST Performed On: 06/03/2018 13:50 EST by Lizeth Almeida, SPOTLIGHT OPERATOR Quick Look Assessment Level of Consciousness : Alert Affect/Behavior : Calm, Cooperative Orientation : Oriented x 4 Skin Color : Other: [place] Skin Temperature : Warm Skin Description : Dry Lizeth Almeida, RN - 06/03/2018 14:50 EST ED General-Functional Assess Communication Barrier : None Primary Language : Estonian Any Spiritual/Cultural Needs or Requests : No [...]
--- OUTSIDE RECORDS SUMMARY | 2025-05-06 10:06 | XMS_ITS | Encounter Summary ---
Author Organization [employer] ([place], [place], [place], [place], [place]) Address [address] [place] [address] Care Team Providers Care Customer Service Cashier Name Role Phone Unavailable Primary Care Provider Unavaillia e Encounter Details Date Type Department Care Team (Late st Contact Info) Description 06/03/2018 Transcribed Document [facility] [place] [facility] [place] [address] ProviderEbenezer MD [address] [place] [address] Social History Tobacco Use Types [...] - Historical ProviderMD - 06/03/2018 3:04 PM SCHOOL BUS ATTENDANT [place] [address] [facility] [place] [address] PERSON INFORMATION Name JULIEN ZELAYA Age 33 Years 1985 Sex Male Language French PCP SALLY EVERETT (REF) T Marital Status Single Med Service Emergency Medicine Acct# Arrival 06/03/2018 12:08:00 Visit Reason Finger laceration; CUT FINGERS Acuity 3 - Urgent LOS 000 02:56 Depart Date: 06/03/18 03:04 PM Address: [facility] [address] Comment: PROVIDER INFORMATION Provider Role Assigned Unassigned Lizeth Almeida, DRY FOLDER CLOTH Nurse 06/03/2018 12:39:09 DOMINIQUE BREWER PA-C ED [...] PURI # 2C [address] [place], [employer] [id number] [employer] (1engage[employer]ply Within 2 to 3 days Comment: documented in this encounter Plan of Treatment Not on file documented as of this encounter Visit Diagnoses Not on filedocumented in this encounter
--- OUTSIDE RECORDS SUMMARY | 2025-05-06 10:06 | XMS_ITS | Encounter Summary ---
Author Organization Healthcare Address [address] [place] [address] Care Team Providers Care Set Up Inspector Name Role Phone Jony Conde MD Primary Care Provider [phone] Lj Tapia HOUSING INSPECTORS Unavailable [phone] Enedina Mcguire APRN Primary Care Provider + Nuria Fall MANAGER BUSINESS Unavailable Unavaila ble Encounter Details Date Type Department Care Team (Late st Contact Info) Description 07/02/2022 Orders Only External Location [address] [place] [address] Provider, External Social History Tobacco Use Types [...] on filedocumented in this encounter Care Teams Set Up Inspector Relationship Specialty Start Date End Date Jony Conde MD #[id number] PCP - General 07/18/22 12/03/22 Enedina Mcguire APRN [address] [place] [address] PCP - General 12/04/22 Lj Tapia APRN [id number] Referring Physician Gastroenterology 07/18/22 Nuria Fall LPN [facility] None TCM Nurse 07/24/24 08/23/24 documented as of this encounter
--- OUTSIDE RECORDS SUMMARY | 2025-05-06 10:06 | XMS_ITS | Encounter Summary ---
Author Organization Healthcare Address [address] [place] [address] Care Team Providers Care Boat Joiner Name Role Phone Jony Conde MD Primary Care Provider [phone] Lj Tapia MICROPHONE OPERATOR Unavailable [phone] Enedina Mcguire APRN Primary Care Provider + Nuria Fall CHIP APPLYING MACHINE TENDER Unavailable Unavaila ble Encounter Details Date Type Department Care Team (Late st Contact Info) Description 07/04/2022 Orders Only External Location [address] [place] [address] [place] [address] Social History Tobacco Use Types Packs/Day Years [...] on filedocumented in this encounter Care Teams Boat Joiner Relationship Specialty Start Date End Date Jony Conde MD #[id number] PCP - General 07/18/22 12/03/22 Eneidna Mcguire APRN [address] [place] [address] PCP - General 12/04/22 Lj Tapia APRN [id number] Referring Physician Gastroenterology 07/18/22 Nuria Fall LPN [facility] None TCM Nurse 07/24/24 08/23/24 documented as of this encounter
--- OUTSIDE RECORDS SUMMARY | 2025-05-06 10:06 | XMS_ITS | Encounter Summary ---
Author Organization Healthcare Address [address] [place] [address] Care Team Providers Care Piano Tuner Name Role Phone Jony Conde MD Primary Care Provider [phone] Lj Tapia INSIDE SALES ASSISTANT Unavailable [phone] Enedina Mcguire APRN Primary Care Provider + Nuria Fall DIRECTOR LOAN Unavailable Unavaila ble Encounter Details Date Type Department Care Team (Late st Contact Info) Description 07/04/2022 Orders Only External Location [address] [place] [address] [place] [address] Social [...] on filedocumented in this encounter Care Teams Piano Tuner Relationship Specialty Start Date End Date Jony Conde MD #[id number] PCP - General 07/18/22 12/03/22 Enedina Mcguire APRN [address] [place] [address] PCP - General 12/04/22 Lj Tapia APRN [address] Referring Physician Gastroenterology 07/18/22 Nuria Fall LPN [facility] None TCM Nurse 07/24/24 08/23/24 documented as of this encounter
--- OUTSIDE RECORDS SUMMARY | 2025-05-06 10:06 | XMS_ITS | Encounter Summary ---
Author Organization [facility] Address [address] [place] [address] Care Team Providers Care Adoption Specialist Name Role Phone Enedina Mcguire APRN Primary Care Provider + Reason for Visit * Reason Comments Med Refill Encounter Details Date Type Department Care Team (Late st Contact Info) Description 09/12/2022 Refill [facility] GASTROENTEROLOGY [address] [place] [address] Lj Tapia APRN [address] [place] [address] Social History Tobacco Use Types Packs/Day Years [...] or training? Not on file Preferred Language [place] Islander 07/03/2022 Sex and Gender Information Value Date [...] [facility] INTERNAL MEDICINE [address] [place] [address] Enedina Mcguire APRN [address] [place] [address] 05/21/2025 12:30 PM EST Office Visit [facility] PAIN MANAGEMENT [address] [facility] [address] [place] [address] Vazquez Christie PA-C [address] [facility] [address] [place] [address] documented as of this encounter Visit Diagnoses Not on filedocumented in this encounter Care Teams Adoption Specialist Relationship Specialty Start Date End Date Enedina Mcguire APRN [address] [place] [address] PCP - General Nurse Practitioner 10/27/24 documented as of this encounter
--- OUTSIDE RECORDS SUMMARY | 2025-05-06 10:06 | XMS_ITS | Encounter Summary ---
Author Organization [employer] ([place], [place], [place], [place], [place]) Address [address] [place] [address] Care Team Providers Care Dsp Engineer Name Role Phone Unavailable Primary Care Provider Carmen jimenez Encounter Details Date Type Department Care Team (Late st Contact Info) Description 06/03/2018 Transcribed Document [facility] [place] [address] ProviderEbenezer MD [address] [place] [address] Social History Tobacco Use Types [...] - Historical ProviderMD - 06/03/2018 3:04 PM PADDLE DYEING MACHINE OPERATOR [address] [place] [address] Patient Information Name: JULIEN ZELAYA [...] [address] [place] [address] [employer] (1) Within 2 to 3 days Patient [...] off of the skin. General Instructions??? Take gcbf-zci-kodjmhs and prescription medicines only as told by [...] 04/30/2006 Document Revised: 09/29/2016 Document Reviewed: 04/26/2015 [employer] Interactive Patient Education ? 2017 [employer] Allergies: No Known Medication Allergies Medication [...] verify that JULIEN ZELAYA was seen at [facility] Emergency Department on ,06/03/2018 15:04:17. [...] Assistance with quitting is available by contacting 4-389-CRPD-NOW. This is a free resource providing counseling, [...] Electronic Communications Privacy Act 18 U.S.C. ???Sections 9043-3204,?? and contain information intended for the specified [...] sure to sign up for the [facility] patient portal, which gives you 04/12 access to your medical information ??? including these discharge instructions ??? using your computer, smartphone, or tablet. Just go to [employer] Website to get started. Questions? Call . Acknowledgment [...]
--- OUTSIDE RECORDS SUMMARY | 2025-05-06 10:06 | XMS_ITS | Encounter Summary ---
Author Organization [employer] ([place], [place], [place], [place], [place]) Address [address] [place] [address] Care Team Providers Care Scheduling Coordinator Name Role Phone Unavailable Primary Care Provider Unavailabl e Encounter Details Date Type Department Care Team (Late st Contact Info) Description 06/03/2018 Transcribed Document [facility] [place] [facility] [place] [address] ProviderEbenezer MD [address] [place], [place] [id number] Social History Tobacco Use Types Packs/Day Years [...] - Historical ProviderMD - 06/03/2018 2:24 PM CODE AND TEST CLERK Electronically signed by Gabriela [facility] Conversion Screw Machine Set Up Operator Tool Cerner at 08/29/2022 6:41 PM CDT documented in this encounter Plan of Treatment Not on file documented as of this encounter Visit Diagnoses Not on filedocumented in this encounter
[2025-05-06 10:10] LABS: Microscopic, Urine URINE MICROSCOPIC (MICROSCOPIC)
[2025-05-06 11:33] LABS: Bilirubin,Urine Negative (Negative); Color,Urine YELLOW (Yellow); Glucose,Urine (UA) Negative (Negative); Ketones,Urine Negative (Negative); Leukocyte Esterase,Urine Negative (Negative); PH,Urine 6.0 (5.0-8.5); Protein,Urine Negative (Negative); Specific Gravity, Urine 1.020 (1.005-1.030); Urobilinogen,Urine 0.2 EU/dl (0.2)
[2025-05-06 12:02] LABS: Hematocrit 42.8 % (42.0-52.0); Hemoglobin 15.3 g/dL (14.1-18.0); Immature Granulocytes % 0.5 %; Mean Corpuscular HGB Conc 35.7 g/dL (31.8-35.4); Mean Corpuscular Hemoglobin 33.9 pg (27.0-31.2); Mean Corpuscular Volume 94.9 fl (80-94); Nucleated Red Blood Cells % 0 %; Platelet Count 220 K/mm3 (142-424); Red Blood Count 4.51 M/mm3 (4.60-6.20); Red Cell Distribution Width-SD 47.0 fL; White Blood Count 7.7 K/mm3 (4.8-10.8)
[2025-05-06 12:03] LABS: Alanine Aminotransferase 71 U/L (12-78); Albumin Level 4.8 g/dl (3.5-5.0); Alkaline Phosphatase 69 U/L (38-126); Anion Gap 20.8 mEq/L (5-15); Aspartate Amino Transferase 82 U/L (17-59); Bilirubin,Direct 0.3 mg/dl (0.0-0.4); Bilirubin,Indirect 0.6 mg/dL (0.0-0.9); Bilirubin,Total 0.9 mg/dl (0.2-1.3); Bilirubin,Unconjugated 0.6 mg/dL (0.0-1.1); Blood Urea Nitrogen 13 mg/dl (9-20); Calcium 9.3 mg/dl (8.4-10.2); Carbon Dioxide 20 mmol/L (22.0-30.0); Chloride 100 mmol/L (98-107); Creatinine,Serum 1.90 mg/dl (0.66-1.25); Estimated Glomerular Filt Rate 39 ml/min (>60); GFR (African American) 48 ML/MIN (>60); Glucose 104 mg/dl (74-100); Magnesium 1.4 mg/dl (1.6-2.3); Phosphorous 5.1 mg/dl (2.5-4.5); Potassium 3.8 mmoL/L (3.5-5.1); Sodium 137 mmol/L (136-145); Total Protein,Serum 7.1 g/dl (6.3-8.2)
[2025-05-06 12:38] LABS: Bacteria,Urine Trace /lpf; Squamous Epithelial Cell,Urine Occasional #/hpf (0-5)
[2025-05-09 00:08] LABS: Tacrolimus (FK506), Blood 10.1 ng/mL (5.0-20.0)
== END 2025-05-06 23:59 | disposition home or self-care (01) ==
LOC: LAB 10:03
PROVIDERS: PCP Nurse Practitioner Family; Visit Provider Surgery
DX: K74.60 Unspecified cirrhosis of liver (principal); R18.8 Other ascites
CPT/HCPCS: 36415; 80069; 80076; 80197; 80321; 81001; 82570; 83735; 84156; 85025; 87086; 87088; 87186

== ENCOUNTER 2025-05-13 09:58 | Outpatient (CLI) | payer OTHER, SELFPAY ==
--- OUTSIDE RECORDS SUMMARY | 2025-03-19 11:30 | XMS_ITS | Encounter Summary ---
Author Organization [facility] Address [address] [place] [id number] Care Team Providers Care Sparmaker Name Role Phone Enedina Mcguire APRN Primary Care Provider + Reason for Visit * Surgical (Routine) - Closed Specialty Diagnoses / Procedures Referred By Shane t Referred To Contact Diagnoses Occipital neuralgia of right side Procedures External Facility Surgical/Procedural Request Vazquez Christie PA-C 1760 [facility] 302 [place] [address] Phone: tel: fax: [facility] AT [address] [place] [address] Phone: tel: fax: Referral ID Status Reason Start Date Expiration Date V isits Requested Visits Authorized [id number] Closed Continuity of Care 03/03/2025 06/02/2026 1 1 Encounter Details Date Type Department Care Team (Late st Contact Info) Description 03/19/2025 11:30 AM EST Outside Facility Service [facility] PAIN MANAGEMENT 1760 [place] [address] Tye Song MD 1760 [place] [address] Social History Tobacco Use Types Packs/Day Years [...] Score 0 10/02/2022 [facility] of Occupat ional Health - Occupational Stress [...] GED or equivalent No 07/09/2024 Preferred Language Armenian 07/09/2024 PHQ-2 Answer Date Recorded Patient Health Questionnaire-2 Score 0 03/03/2025 Sex and Gender Information Value Date Recorded Sex Assigned at Male 08/20/2024 8:28 PM EDT Legal Sex Male 7:45 AM EDT Gender Identity Not on file Sexual Orientation Not on file documented as of this encounter Plan of Treatment Upcoming Encounters Date Type Department Care Team (Late st Contact Info) Description 05/21/2025 12:30 PM EST Office Visit [facility] PAIN [facility]EMENT 3000 [facility] 330 [place] [address] Vazquez Christie PA-C 1760 [facility] [address] [place] [phone] 06/08/2025 2:30 PM EST Office Visit [facility] INTERNAL MEDICINE 3101 [place] [phone] Enedina Mcguire APRN 3101 [place], [place] [phone] documented as of this encounter Visit Diagnoses Not on filedocumented in this encounter Additional Health Concerns Assessment Noted Time PHQ-2 Depression Total Score: 1 12/31/19 24 3:25 PM EDT documented as of this encounter Care Teams Sparmaker Relationship Specialty Start Date End Date Enedina Mcguire, BOARD CERTIFIED FAMILY PHYSICIAN [address] [place] [address] [id number] PCP - General Nurse Practitioner 10/27/24 documented as of this encounter
--- OUTSIDE RECORDS SUMMARY | 2025-04-16 09:50 | XMS_ITS | Encounter Summary ---
Author Organization [facility] Address [facility] [place] [address] Care Team Providers Care Lace Roller Operator Name Role Phone Enedina Mcguire NP Primary Care Provider + [phone] Maureen Pantoja RN Unavailable Unavail able Chris Orosco MD Unavailable [phone] Source Comments This information has been disclosed [...] release of HIV test results or diagnoses. [id number] Health Reason for Referral * Physician/SAWYER (Routine) - Pending Review Specialty Diagnoses / Procedures Referred By Contac t Referred To Contact Psychology Diagnoses Kidney transplant recipient Liver transplant recipient ([facility]) Encounter for monitoring tacrolimus therapy Immunosuppressive management encounter following liver transplant ([facility]) Alcohol use disorder, severe, dependence ([facility]) Chris Orosco MD [address] [place] [address] Phone: tel: fax: Referral ID Status Reason Start Date Expiration Date V isits Requested Visits Authorized [id number] Pending Review 04/16/2025 10/13/2025 1 1 Reason for Visit * Reason Comments Liver Transplant Follow-up Encounter Details Date Type Department Care Team (Late st Contact Info) Description 04/16/2025 9:50 AM EST Office Visit [facility] Liver Transplant at [facility] [address] [facility] [address] [place] [address] Chris Orosco MD [address] [place] [address] Liver transplant recipient ([facility]) (Primary Dx); Kidney transplant recipient; Encounter for monitoring tacrolimus therapy; Immunosuppressive management encounter following liver transplant ([facility]); Alcohol use disorder, severe, dependence ([facility]); Encounter for therapeutic drug monitoring; S/P liver transplant ([facility]); Hypomagnesemia; Hypertension, unspecified type; Gastroesophageal reflux [...] as 4 glasses of wine a days [employer] Answer Date Recorded In the past 12 months has e WIB, gas, oil, or water [employer] threatened to shut off services in [...] 9:46 AM EST documented in this encounter Functional Status * BP Answer Date of Assessment Author 146/98 04/16/2025 9:46 AM EST Nir, Ry an, [place] * Temp Answer Date of Assessment Author 97.6 04/16/2025 9:46 AM EST Nir, Ry an, [place] * Pulse Answer Date of Assessment Author 109 04/16/2025 9:46 AM EST Nir, Ry an, [place] * SpO2 Answer Date of Assessment Author 100 04/16/2025 9:46 AM EST Nir, Ry an, [place] * Height Answer Date of Assessment Author 76 04/16/2025 9:46 AM EST Nir, Ry an, [place] * Weight Answer Date of Assessment Author 4100.8 04/16/2025 9:46 AM EST Nir, Ry an, [place] * Pain Education Answer Date of Assessment Author No 04/16/2025 9:46 AM EST Nir, Ry an, [place] * Weight in kg Answer Date of Assessment Author 116.26 04/16/2025 9:46 AM EST Nir, Ry an, [place] * Height in cm Answer Date of Assessment Author 193 04/16/2025 9:46 AM EST Nir, Ry an, [place] * Body Composition Question Answer Date of Assessment Author Weight Change (lbs) 0 04/16/2025 9:46 AM uQinten Reynaga MA * NARxCHECK Sedatives Score Answer Date of Assessment Author 250 04/16/2025 9:41 AM EST Interface , Doc Flowsheet In * NARxCHECK Stimulants Score Answer Date of Assessment Author 000 04/16/2025 9:41 AM EST Interface , Doc Flowsheet In * NARxCHECK Narcotics Score Answer Date of Assessment Author 380 04/16/2025 9:41 AM EST Interface , Doc Flowsheet In * Anthropometrics Question Answer Date of Assessment Author BMI (Calculated) 31.21 04/16/2025 9:46 AM EST Quinten Diaz MA * Height Percent Change Answer Date of Assessment Author 0 04/16/2025 9:46 AM EST Nir, Ry an MA * HIDDEN-Infusion Dashboard Answer Date of Assessment Author 146 04/16/2025 9:46 AM Gabriel Laird MA * BSA (Calculated - sq m) Answer Date of Assessment Author 2.5 04/16/2025 9:46 AM Gabriel Laird MA * Height and Weight Question Answer Date of Assessment Author Percent Weight Change Since 0 025 9:46 AM Quinten Laird MA * Adult IBW/VT Calculations Question Answer Date of Assessment Author Low Range Vt 4 mL MALE 347.2 04/16/2025 9:46 AM Quinten Laird MA Low Range Vt 4 mL FEMALE 329.2 04/16/2025 9:46 AM Quinten Laird MA IBW/kg (Calculated) Male 86.8 04/16/2025 9:46 AM Quinten Laird MA Low Range Vt 6 mL MALE 520.8 04/16/2025 9:46 AM Quinten Laird MA Moderate Range Vt 8 mL MALE 694.4 04/16/2025 9: 46 AM Quinten Laird MA High Range Vt 10 mL MALE 868 04/16/2025 9:46 AM Quinten Laird MA IBW/kg (Calculated) FEMALE 82.3 04/16/2025 9:4 6 AM Quinten Laird MA Low Range Vt 6 mL FEMALE 493.8 04/16/2025 9:46 AM Quinten Laird MA Moderate Range Vt 8 mL FEMALE 658.4 04/16/2025 9:46 AM Quinten Laird MA High Range Vt 10 mL FEMALE 823 04/16/2025 9:4 6 AM Quinten Laird MA * ROOMING FALL RISK SCORING MECHANISM Answer Date of Assessment Author 0 04/16/2025 9:45 AM Gabriel Laird MA * Screening outcome: Answer Date of Assessment Author Not a Fall Risk 04/16/2025 9:45 AM Gabriel Laird MA * Fall Risk Screening Question Answer Date of Assessment Author Are you afraid of falling? 0 04/16/2025 9:4 5 AM Quinten Laird MA Do you use anything to help you walk? 0 08/2024 9:45 AM Quinten Laird MA Have you had any falls or ne ar falls in the last 90 days? 0 04/16/2025 9:45 AM Quinten Laird MA Fall prevention classes and resources provided today. 0 04/16/2025 9:45 AM Quinten Laird MA * Temp (in Celsius) Answer Date of Assessment Author 36.4 04/16/2025 9:46 AM Gabriel Laird MA * BP Answer Date of Assessment Author 146/98 04/16/2025 9:46 AM Gabriel Laird MA * Height Answer Date of Assessment Author 76 04/16/2025 9:46 AM Gabriel Laird MA * Weight Answer Date of Assessment Author 4100.8 04/16/2025 9:46 AM Gabriel Laird MA * Calculated Energy Needs Question Answer Date of Assessment Author [place] St Jeor Equation (RMR) 2,169.07 04/16/2025 9:46 AM Quinten Laird MA Fluid Requirements (mL) 3,487.71 04/16/2025 9:46 A M Quinten Laird MA * Anthropometrics Question Answer Date of Assessment Author BMI (Calculated) 31.21 04/16/2025 9:46 AM Quinten Owens MA * BMI (Calculated) Answer Date of Assessment Author 31.3 04/16/2025 9:46 AM Gabriel Laird MA * Adult IBW/VT Calculations Question Answer Date of Assessment Author IBW/kg (Calculated) Male 86.8 04/16/2025 9:46 AM Quinten Laird MA IBW/kg (Calculated) FEMALE 82.3 04/16/2025 9:4 6 AM Quinten Laird MA * Anthropometrics Question Answer Date of Assessment Author Weight Change 0 04/16/2025 9:46 AM Quinten Brower MA documented as of this encounter Mental Status * BP Answer Entry Date Author 146/98 04/16/2025 9:46 AM Gabriel Laird MA * Pulse Answer Entry Date Author 109 04/16/2025 9:46 AM Gabriel Laird MA * Resp Answer Entry Date Author 16 04/16/2025 9:46 AM Gabriel Laird MA * SpO2 Answer Entry Date Author 100 04/16/2025 9:46 AM EST Gabriel Loyola MA documented in this encounter Patient Instructions * [...] his sCr being elevated so went to [facility] in [place] yesterday to have rechecked and went down [...] Chris Orosco MD, MPH Transplant hepatology Pager: [phone] documented in this encounter Plan of Treatment Scheduled Referrals Name Type Priority Associated Diagnoses Orde r Schedule Therapy/Counseli ng Outpatient Referral Routine Kidney transplant recipient Liver transplant recipient ([facility]) Encounter for monitoring tacrolimus therapy Immunosuppressive management encounter following liver transplant ([facility]) Alcohol use disorder, severe, dependence ([facility]) Ordered: 04/16/2025 documented as of this encounter Visit Diagnoses Diagnosis Liver transplant recipient ([facility])- Primary Kidney transplant recipient Encounter for monitoring tacrolimus therapy Immunosuppressive management encounter following liver transplant ([facility]) Alcohol use disorder, severe, dependence ([facility]) Encounter for therapeutic drug monitoring S/P liver transplant ([facility]) Hypomagnesemia Disorders of magnesium metabolism Hypertension, unspecified type Gastroesophageal reflux disease, unspecified whether esophagitis present documented in this encounter Additional Health Concerns Infection Onset Date Last Indicated Resolved Time C. difficile 01/28/2025 01/28/2025 04/28/2025 9:36 PM EST Assessment Noted Time PHQ-9 Depression Total Score: 2 12/11/19 9:00 AM EDT documented as of this encounter Care Teams Lace Roller Operator Relationship Specialty Start Date End Date Enedina Mcguire NP [address] [place] [address] PCP - General Internal Medicine 10/05/24 Maureen Pantoja RN Txp Post Coordinator Transplant Hepatology 10/28/24 Chris Orosco MD [address] [place] [address] [address] [place] [address] Consulting Physician Transplant Hepatology 02/26/25 documented as of this encounter
--- OUTSIDE RECORDS SUMMARY | 2025-04-16 10:51 | XMS_ITS | Encounter Summary ---
Author Organization [facility] Address [facility] [place] [address] Care Team Providers Care Front Attendant Name Role Phone Enedina Mcguire NP Primary Care Provider + [phone] Maureen Pantoja RN Unavailable Unavail able Chris Orosco MD Unavailable [phone] Source Comments This information has been disclosed [...] release of HIV test results or diagnoses. [id number] Health Reason for Visit * Auth/Cert (Routine) Specialty Diagnoses / Procedures Referred By Shane t Referred To Contact Radiology [facility] Radiology [address] [place] [address] Phone: tel: Referral ID Status Reason Start Date Expiration Date Visits Re quested Visits Authorized [id number] 1 1 Encounter Details Date Type Department Care Team (Latest Contact Info) Description 04/16/2025 10:51 AM EST - 04/16/2025 11:59 PM EST Hospital Encounter [facility] Radiology [address] [place] [address] Chris Orosco MD [address] [place] [address] History of systemic steroid therapy; Liver transplant recipient ([facility]); Kidney transplant recipient; Immunosuppressive management encounter following liver transplant ([facility]); Encounter for monitoring tacrolimus therapy; Vitamin D [...] the past 12 months has th e [employer], gas, oil, or water [employer] threatened to shut off services in your [...] as of this encounter Functional Status * LACE+ Score Answer Date of Assessment Author 60 04/17/2025 2:14 AM EST Prelude, Batch Job documented as of this encounter Medications at Time of Discharge cyclobenzaprine (FLEXERIL) 5 MG tablet Take 1 tablet (5 mg total) by mouth 3 times a day. 90 tablet 01/30/2025 11:36 AM EDT 5 ergocalciferol (ERGOCALCIFEROL) 1,250 mcg (50,000 unit) capsuleIndications:En counter for therapeutic drug monitoring,S/P liver transplant ([facility]),Hypomagnese delma,Kidney transplant recipient,Hypertensio n, unspecified type,Gastroesophageal reflux disease, unspecified whether esophagitis present Take 1 capsule (50,000 Units total) by mouth once a week. 4 capsule 2 5 famotidine (PEPCID) 20 MG tabletIndications:Enc ounter for therapeutic drug monitoring,S/P liver transplant ([facility]),Hypomagnese delma,Kidney transplant recipient,Hypertensio n, unspecified type,Gastroesophageal reflux [...] mg capsuleIndications:Ki dney transplant recipient,Liver transplant recipient ([facility]),Encounter for monitoring tacrolimus therapy,Immunosuppres sive management encounter following liver transplant ([facility]),Encounter for therapeutic drug monitoring,S/P liver transplant ([facility]) Take 2 capsules (500 mg total) by mouth 2 times a day. 60 capsule 5 04/22/2025 10:24 AM EST 5 NIFEdipine (PROCARDIA-XL) 30 MG (OSM) 24 hr tabletIndications:Enc ounter for therapeutic drug monitoring,S/P liver transplant ([facility]),Hypomagnese delma,Kidney transplant recipient,Hypertensio n, unspecified type,Gastroesophageal reflux disease, unspecified whether esophagitis present Take 1 tablet by mouth once daily 30 tablet 5 testosterone cypionate 200 mg/mL Kit Inject into the muscle. 1 topiramate (TOPAMAX) 50 MG tabletIndications:alc oholism Take 1 tablet (50 mg total) by mouth daily. Indications: alcoholism 30 tablet 11 5 tacrolimus (PROGRAF) 1 MG capsuleIndications:Pr evention of Kidney Transplant Rejection,Prevention of Liver Transplant Rejection Take 4 capsules (4 mg total) by mouth 2 times a day. Indications: Prevention of Kidney Transplant Rejection, Prevention of Liver Transplant Rejection 300 capsule 5 04/30/20 documented as of this encounter Plan of Treatment Not on file documented as of this encounter Procedures Procedure Name Priority Date/Time Associated Diagnosis Comments DXA BONE DENSITY AXIAL SKELETON Routine 04/16/2025 11:25 AM EST History of systemic steroid therapy Liver transplant recipient ([facility]) Kidney transplant recipient Immunosuppressive management encounter following liver transplant ([facility]) Encounter for monitoring tacrolimus therapy Vitamin [...] of systemic steroid therapy; Liver transplant recipient ([facility]); Kidney transplant recipient; Immunosuppressive management encounter following liver transplant ([facility]); Immunosuppressive management encounter following liver transplant ([facility]); Encounter for monitoring tacrolimus therapy; Encounter for monitoring tacrolimus therapy; Vitamin D deficiency TECHNICAL: Bone mineral density analysis was performed on a AIM scanner. ARTIFACTS: None COMPARISON: No prior studies [...] History of systemic steroid therapy; Liver transplantrecipient ([facility]); Kidney transplant recipient; Immunosuppressivemanagement encounter following liver transplant ([facility]);Immunosuppressive management encounter following liver transplant([facility]); Encounter for monitoring tacrolimus therapy; Encounter formonitoring tacrolimus therapy; Vitamin D deficiency TECHNICAL: Bone mineral density analysis was performed on a [employer] PHARMAX[employer]ePARanner. ARTIFACTS: None COMPARISON: No prior studies currently [...] of systemic steroid therapy Liver transplant recipient ([facility]) Kidney transplant recipient Immunosuppressive management encounter following liver transplant ([facility]) Encounter for monitoring tacrolimus therapy Vitamin D deficiency Unspecified vitamin D deficiency documented in this encounter Additional Health Concerns Infection Onset Date Last Indicated Resolved Time C. difficile 01/28/2025 01/28/2025 04/28/2025 9:36 PM EST Assessment Noted Time PHQ-9 Depression Total Score: 2 12/11/19 9:00 AM EDT documented as of this encounter Care Teams Front Attendant Relationship Specialty Start Date End Date Enedina Mcguire NP [address] [place] [address] PCP - General Internal Medicine 10/05/24 Maureen Pantoja, ЮЛИЯ Txp Post Coordinator Transplant Hepatology 10/28/24 Chris Orosco MD [address] [place] [address] [address] [place] [address] Consulting Physician Transplant Hepatology 02/26/25 documented as of this encounter
--- OUTSIDE RECORDS SUMMARY | 2025-05-13 10:01 | XMS_ITS | Encounter Summary ---
Author Organization [facility] Address [address] [place] [address] Care Team Providers Care Claims Adjuster Name Role Phone Enedina Mcguire NP Primary Care Provider [phone] Alicia Rankin RN Unavailable Unavail able Chris Orosco MD Unavailable [phone] Source Comments This information has been disclosed [...] release of HIV test results or diagnoses. [id number] Health Reason for Visit * Reason Comments Results Medication Dose Change Encounter Details Date Type Department Care Team (Late st Contact Info) Description 04/30/2025 Telephone [facility] Liver Transplant at [address] [address] Alicia Rankin, ЮЛИЯ Results; Medication Dose Change Social History Tobacco Use Types Packs/Day Years Used Date Smoking Tobacco: Former Cigarettes Smokeless Tobacco: Current Alcohol Use Standard Drinks/Week Comments Yes 0 (1 standard drink = 0.6 oz pure alcohol) History of alcohol abuse, reports no use in 3 week- typically endorses use as 4 glasses of wine a days [facility] Utilities Answer Date Recorded In the past 12 months has [employer] electric, gas, oil, or water company threatened [...] Progress Notes * Alicia Rankin RN - 04/30/2025 1:44 PM ESTAddended by: ALICIA RANKIN on: 04/30/2025 01:44 PM Modules accepted: Orders * Alicia Rankin RN - 04/30/2025 1:[address] Maza: I agree with decreasing tacrolimus to 3 mg twice daily. Labs every 2 weeks for now. Dose updated. Patient notified via [employer]. * Alicia Rankin RN - 04/30/2025 10:49 AM EST Lab results from 04/22/25 reviewed. Cr 1.60 (from 1.80); BUN 14. LFTs remain slightly elevated. Alk phos 66, AST/ALT 54/51. FK 12.7 Labs collected ~ 10 AM. Patient reports typically taking meds around 9 AM. Coached patient again onmed/lab timing in 04/23/25 norin.tv message. PEth 296 (from 370 on 04/14/25). Current IS: FK 4 mg BID (decreased 04/16/25) MMF 500 mg BID (increased 04/16/25) Will route to Txp Provider for further review and recommendations. documented in this encounter Plan of Treatment Not on file documented as of this encounter Visit Diagnoses Diagnosis Kidney transplant recipient Liver transplant recipient (CMS-HCC) Encounter for monitoring tacrolimus therapy Immunosuppressive management encounter following liver transplant ([facility]-H[facility]) Encounter for therapeutic drug monitoring S/P liver transplant (CMS-HCC) documented in this encounter Additional Health Concerns Assessment Noted Time PHQ-9 Depression Total Score: 2 12/11/19 25 9:00 AM EDT documented as of this encounter Care Teams Claims Adjuster Relationship Specialty Start Date End Date Enedina Mcguire NP [address] [place] [address] PCP - General Internal Medicine 10/05/24 Alicia Rankin, ЮЛИЯ Txp Post Coordinator Transplant Hepatology 10/28/24 Chris Orosco MD [address] [place] [address] [address] [place] [address] Consulting Physician Transplant Hepatology 02/26/25 documented as of this encounter
--- OUTSIDE RECORDS SUMMARY | 2025-05-13 10:01 | XMS_ITS | Encounter Summary ---
Author Organization [facility] Address [address] [place] [address] Care Team Providers Care Gravel Truck Driver Name Role Phone Enedina Mcguire NP Primary Care Provider [phone] Maureen Pantoja RN Unavailable Unavail able Chris Orosco MD Unavailable [phone] Source Comments This information has been disclosed [...] release of HIV test results or diagnoses. [id number] Health Encounter Details Date Type Department Care Team (Late st Contact Info) Description 05/08/2025 Chart Note [facility] Liver Transplant at [address] [address] Marlene Ro MA 05/06 Labs entered from [facility] Social History Tobacco Use Types Packs/Day Years Used Date Smoking Tobacco: Former Cigarettes Smokeless Tobacco: Current Alcohol Use Standard Drinks/Week Comments Yes 0 (1 standard drink = 0.6 oz pure alcohol) History of alcohol abuse, reports no use in 3 week- typically endorses use as 4 glasses of wine a days [facility] Utilities Answer Date Recorded In the past 12 months has [employer] electric, gas, oil, or water company threatened [...] URINE PROTEIN, TOTAL, RANDOM (W/O CREATININE) Routine 05/06/2025 10:05 AM EST HEPATIC FUNCTION PANEL Routine 05/06/2025 10:05 AM EST CREATININE, URINE, RANDOM Routine 05/06/2025 10:05 AM EST URINALYSIS W/RFL TO MICROSCOPIC Routine 05/06/2025 10:05 AM EST CBC AND DIFFERENTIAL Routine 05/06/2025 10:05 AM EST MAGNESIUM Routine 05/06/2025 10:05 AM EST RENAL FUNCTION PANEL W/O EGFR Routine 05/06/2025 10:05 AM EST documented in this encounter Results * (ABNORMAL) Magnesium (05/06/2025 10:05 AM EST) Magnesium 1.4(A) 1.6 - 2.4 mg/dL Plasma Narrative Resulting Agency Comment [facility] us Historical Provider LAB BLOOD ORDERABLES Denisse l Result * (ABNORMAL) Renal Function Panel w/o EGFR (05/06/2025 10:05 AM EST) Glucose 104 BUN 13 CO2 20 13 - 22 mmol/L Creatinine 1.90 Potassium 3.8 Sodium 137 Chloride 100 Phosphorus 5.1(A) 2.5 - 4.9 mg/dL Calcium 9.3 EGFR 39 mg/dL Albumin 4.8 3.5 - 5.0 g/dL Blood Narrative Resulting Agency Comment [facility] Historical Provider LAB BLOOD ORDERABLES Denisse l Result * Creatinine, urine, random (05/06/2025 10:05 AM EST) Creatinine, Urine 164 Urine Narrative Resulting Agency Comment [facility] Result [facility] Provider URINE ORDERABLES Final Re sult * Urinalysis w/Rfl to Microscopic (05/06/2025 10:05 AM EST) Pathologist [facility] Glucose, UA Negative Negative Ketones, UA Negative Negative Blood, UA Negative Negative Bilirubin, UA Negative Negative Urobilinogen, UA Normal Normal Protein, UA Negative Negative Nitrite, UA Negative Negative pH, UA 6.0 4.5 - 8.0 Specific [place], UA 1.020 1.005 - 1.030 Clarity, UA Clear Clear Color, UA Yellow Light Yellow, Yellow Urine Narrative Resulting Agency Comment [facility] Result [facility] Provider URINE ORDERABLES Final Re sult * (ABNORMAL) CBC and differential (05/06/2025 10:05 AM EST) Pathologist [facility] Hemoglobin 15.3 13.5 - 17.5 g/dL Hematocrit 42.8 41 - 53 % RDW 13.4 11.5 - 14.5 % Lymphocytes Absolute 2.0 / L Monocytes Absolute 0.8 / L Eosinophils Absolute 0.2 / L Basophils Absolute 0.1 / L Neutrophils Relative 58.9 46 - 78 % Lymphocytes Relative 26.6 18 - 52 % Monocytes Relative 10.8(A) 3 - 10 % Eosinophils Relative 2.0 0 - 6 % Basophils Relative 1.2 0 - 3 % Neutrophils Absolute 4.5 / L MCH 33.9 26.0 - 34.0 pg MCHC 35.7 30 - 37 g/dL MCV 94.9 82.0 - 108.0 fL Platelets 220 K/ L RBC 4.51 4.50 - 5.90 10^6/ L WBC 7.7 10^3/mL Blood Narrative Resulting Agency Comment [facility] Result [facility] Historical Provider LAB BLOOD ORDERABLES Denisse l Result * Urine Protein, Tot, Random (w/o Creat) (05/06/2025 10:05 AM EST) Total Protein, Ur 14.0 Urine Narrative Resulting Agency Comment [facility] Historical Provider URINE ORDERABLES Final Re sult * Hepatic Function Panel (05/06/2025 10:05 AM EST) Bilirubin, Direct 0.3 Bilirubin, Indirect 0.6 Alkaline Phosphatase 69 ALT 71 AST 82 Total Bilirubin 0.9 Total Protein 7.1 Plasma Narrative Resulting Agency Comment [facility] Historical Provider LAB BLOOD ORDERABLES Denisse l Result documented in this encounter Visit Diagnoses Not on filedocumented in this encounter Additional Health Concerns Assessment Noted Time PHQ-9 Depression Total Score: 2 12/11/19 25 9:00 AM EDT documented as of this encounter Care Teams Gravel Truck Driver Relationship Specialty Start Date End Date Enedina Mcguire NP [address] [place] [address] PCP - General Internal Medicine 10/05/24 Maureen Pantoja, RN Txp Post Coordinator Transplant Hepatology 10/28/24 Chris Orosco MD [address] [place] [address] [address] [place] [address] Consulting Physician Transplant Hepatology 02/26/25 documented as of this encounter
--- OUTSIDE RECORDS SUMMARY | 2025-05-13 10:01 | XMS_ITS | Encounter Summary ---
Author Organization [facility] Address [address] [place] [address] Care Team Providers Care Global Technical Writer Name Role Phone Enedina Mcguire NP Primary Care Provider [phone] Maureen Pantoja RN Unavailable Unavail able Chris Orosco MD Unavailable [phone] Source Comments This information has been disclosed [...] release of HIV test results or diagnoses. [id number] Encounter Details Date Type Department Care Team (Late st Contact Info) Description 04/15/2025 Chart Note [facility] Liver Transplant at [place] [id number] [address] Marlene Ro MA 04/14 Labs entered from [facility] Social History Tobacco Use Types Packs/Day Years Used Date Smoking Tobacco: Former Cigarettes Smokeless Tobacco: Current Alcohol Use Standard Drinks/Week Comments Yes 0 (1 standard drink = 0.6 oz pure alcohol) History of alcohol abuse, reports no use in 3 week- typically endorses use as 4 glasses of wine a days [facility] Utilities Answer Date Recorded In the past 12 months has [employer] electric, gas, oil, or water company threatened [...] were not included. 04/14 Labs entered from [facility] [...] Phosphatidylethanol (PEth) Positive 370 Whole Blood Result [facility] Provider LAB BLOOD ORDERABLES Denisse l Result * (ABNORMAL) Tacrolimus level (04/14/2025 1:05 PM EST) Tacrolimus Lvl 16.0(A) 6 - 15 ng/mL Whole Blood Result [facility] Provider LAB BLOOD ORDERABLES Denisse l Result * Urine culture (04/14/2025 1:05 PM EST) Urine Culture, Comprehensive no growth URINE SPECIMEN / Unknown Result [facility] MICROBIOLOGY - GENERAL OR DERABLES Final Result * Magnesium (04/14/2025 1:05 PM EST) Pathologist [facility] Magnesium 1.6 1.6 - 2.4 mg/dL Plasma Narrative Resulting Agency Comment [facility] Result [facility] LAB BLOOD ORDERABLES [...] Narrative Resulting Agency Comment [facility] Result [facility] Provider LAB BLOOD ORDERABLES Denisse l Result * Creatinine, urine, random (04/14/2025 1:05 PM EST) Creatinine, Urine 123 Urine Narrative Resulting Agency Comment [facility] Result [facility] Provider URINE ORDERABLES Final Re sult * Urinalysis w/Rfl to Microscopic (04/14/2025 1:05 PM EST) [facility] Glucose, UA Negative Negative Ketones, UA Negative Negative Blood, UA Negative Negative Bilirubin, UA Negative Negative Urobilinogen, UA Normal Normal Protein, UA Negative Negative Nitrite, UA Negative Negative pH, UA 6.0 4.5 - 8.0 Specific [place], UA 1.020 1.005 - 1.030 Clarity, UA Clear Clear Color, UA Yellow Light Yellow, Yellow Urine Narrative Resulting Agency Comment [facility] Result [facility] Provider URINE ORDERABLES Final Re sult * (ABNORMAL) CBC and differential (04/14/2025 1:05 PM EST) [facility] Hemoglobin 14.5 13.5 - 17.5 g/dL Hematocrit [...] 5.3 10^3/mL Blood Narrative Resulting Agency Comment [facility] Result [facility] Provider LAB BLOOD ORDERABLES Denisse l Result * Urine Protein, Tot, Random (w/o Creat) (04/14/2025 1:05 PM EST) [facility] Total Protein, Ur 22.0 Urine Narrative Resulting Agency Comment [facility] Provider URINE ORDERABLES Final Re sult * Hepatic Function Panel (04/14/2025 1:05 PM EST) Bilirubin, Direct 0.1 Bilirubin, Indirect 0.4 Alkaline Phosphatase 62 ALT 40 AST 50 Total Bilirubin 0.5 Total Protein 6.9 Plasma Narrative Resulting Agency Comment [facility] us Historical Provider LAB BLOOD ORDERABLES Denisse l Result documented in this encounter Visit Diagnoses Not on filedocumented in this encounter Additional Health Concerns Infection Onset Date Last Indicated Resolved Time C. difficile 01/28/2025 01/28/2025 04/28/2025 9:36 PM EST Assessment Noted Time PHQ-9 Depression Total Score: 2 12/11/19 9:00 AM EDT documented as of this encounter Care Teams Global Technical Writer Relationship Specialty Start Date End Date Enedina Mcguire NP [address] [place] [address] PCP - General Internal Medicine 10/05/24 Maureen Pantoja, ЮЛИЯ Txp Post Coordinator Transplant Hepatology 10/28/24 Chris Orosco MD [address] [place] [address] [address] [place] [address] Consulting Physician Transplant Hepatology 02/26/25 documented as of this encounter
--- OUTSIDE RECORDS SUMMARY | 2025-05-13 10:01 | XMS_ITS | Encounter Summary ---
Author Organization [facility] Address [address] [place] [address] Care Team Providers Care Equipment Analyst Name Role Phone Enedina Mcguire APRN Primary Care Provider + Reason for Visit * Reason Onset Date Comments Med Refill 04/07/2025 Encounter Details Date Type Department Care Team ([facility] st Contact Info) Description 04/07/2025 Refill [facility] INTERNAL MEDICINE [address] [place] [address] Enedina Mcguire APRN [address] [place] [address] Social History Tobacco Use Types [...] months has [employer], gas, oil, or water [employer] threatened to shut off services in your [...] Severity Measure Score 0 10/02/2022 [facility] - Occupational Stress Questionnaire Answer [...] GED or equivalent No 07/09/2024 Preferred Language Maori 07/09/2024 PHQ-2 Answer Date Recorded Patient Health [...] Description 05/21/2025 12:30 PM EST Office Visit [facility] PAIN MANAGEMENT [address] [facility] [address] [place] [address] Vazquez Christie PA-C [address] [facility] [address] [place] [address] 06/08/2025 2:30 PM EST Office Visit [facility] INTERNAL MEDICINE [address] [place] [address] Enedina Mcguire, EXTENSION FORESTER [address] [place] [address] documented as of this encounter Visit Diagnoses Not on filedocumented in this encounter Additional Health Concerns Assessment Noted Time PHQ-2 Depression Total Score: 1 12/31/19 24 3:25 PM EDT documented as of this encounter Care Teams Equipment Analyst Relationship Specialty Start Date End Date Enedina Mcguire APRN [address] [place] [address] PCP - General Nurse Practitioner 10/27/24 documented as of this encounter
--- OUTSIDE RECORDS SUMMARY | 2025-05-13 10:01 | XMS_ITS | Encounter Summary ---
Author Organization [facility] Address [address] [place] [address] Care Team Providers Care Vulcanizer Rubber Plate Name Role Phone Enedina Mcguire NP Primary Care Provider + [phone] Maureen Pantoja RN Unavailable Unavail able Chris Orosco MD Unavailable [phone] Source Comments This information has been disclosed [...] release of HIV test results or diagnoses. [id number] Encounter Details Date Type Department Care Team (Late st Contact Info) Description 05/12/2025 Telephone [facility] Liver Transplant at [address] [address] Mitzy Gill MA Social History [...] Recorded In the past 12 months has [employer], gas, oil, or water company threatened [...] Progress Notes * Mitzy Gill MA - 05/12/2025 4:19 PM EST Pt states he is in need of a list of his past appts listed out on our letterhead for an end of the year insurance reconciliation he's working on. I advised Pt I would check into if this is something we could provide and would either return call letting him know or send him the letter via [employer]. Pt agreeable to plan. documented in this encounter Plan of Treatment Not on file documented as of this encounter Visit Diagnoses Not on filedocumented in this encounter Additional Health Concerns Assessment Noted Time PHQ-9 Depression Total Score: 2 12/11/19 9:00 AM EDT documented as of this encounter Care Teams Vulcanizer Rubber Plate Relationship Specialty Start Date End Date Enedina Mcguire NP [address] [place] [address] PCP - General Internal Medicine 10/05/24 Maureen Pantoja, RN Txp Post Coordinator Transplant Hepatology 10/28/24 [place] [address] [place] [address] 3200 [place] [address] Consulting Physician Transplant Hepatology 02/26/25 documented as of this encounter
--- OUTSIDE RECORDS SUMMARY | 2025-05-13 10:03 | XMS_ITS | Encounter Summary ---
Author Organization [facility] Address [address] [place] [address] Care Team Providers Care National Sales Executive Name Role Phone Enedina Mcguire NP Primary Care Provider + [phone] Maureen Pantoja RN Unavailable Unavail able Chris Orosco MD Unavailable [phone] Source Comments This information has been disclosed [...] release of HIV test results or diagnoses. [id number] Encounter Details Date Type Department Care Team (Late st Contact Info) Description 04/23/2025 Chart Note [facility] Liver Transplant at [place] [id number] [address] Marlene Ro MA 04/22 Labs entered from [facility] Social History Tobacco Use Types Packs/Day Years Used Date Smoking Tobacco: Former Cigarettes Smokeless Tobacco: Current Alcohol Use Standard Drinks/Week Comments Yes 0 (1 standard drink = 0.6 oz pure alcohol) History of alcohol abuse, reports no use in 3 week- typically endorses use as 4 glasses of wine a days [facility] Utilities Answer Date Recorded In the past 12 months has [employer], gas, oil, or water company threatened [...] Progress Notes * Marlene Ro MA - 04/23/2025 12:59 PM EST Images from the original note were not included. 04/22 Labs entered from [facility] documented in this encounter Plan of Treatment Not on file documented as of this encounter Procedures Procedure Name Priority Date/Time Associated Diagnosis Comments PHATIDYLETHANOL (PETH) Routine 9:59 AM EST URINE PROTEIN, TOTAL, RANDOM (W/O CREATININE) Routine 04/22/2025 9:59 AM EST HEPATIC FUNCTION PANEL Routine 9:59 AM EST TACROLIMUS LEVEL Routine 04/22/2025 9:59 AM EST CREATININE, URINE, RANDOM Routine 04/22/2025 9:59 AM EST URINALYSIS W/RFL TO MICROSCOPIC Routine 04/22/2025 9:59 AM EST CBC AND DIFFERENTIAL Routine 04/22/2025 9:59 AM EST URINE CULTURE Routine 04/22/2025 9:59 AM EST MAGNESIUM Routine 04/22/2025 9:59 AM EST RENAL FUNCTION PANEL W/O EGFR Routine 04/22/2025 9:59 AM EST documented in this encounter Results * Tacrolimus level (04/22/2025 9:59 AM EST) Tacrolimus Lvl 12.7 6 - 15 ng/mL Whole Blood us Historical Provider LAB BLOOD ORDERABLES Denisse l Result * Phatidylethanol (PEth) (04/22/2025 9:59 AM EST) Phosphatidylethanol (PEth) Positive 296 Whole Blood Result [facility] LAB BLOOD ORDERABLES Denisse l Result * Urine culture (04/22/2025 9:59 AM EST) Pathologist [facility] Urine Culture, Comprehensive see note column URINE SPECIMEN / Unknown Result [facility] MICROBIOLOGY - GENERAL OR DERABLES Final Result * (ABNORMAL) Magnesium (04/22/2025 9:59 AM EST) Pathologist [facility] Magnesium 1.1(A) 1.6 - 2.4 mg/dL Plasma Narrative Resulting Agency Comment Kev Downey Result [facility] LAB BLOOD ORDERABLES Denisse l Result * Renal Function Panel w/o EGFR (04/22/2025 9:59 AM EST) Pathologist [facility] Glucose 101 BUN 14 CO2 22 13 - 22 mmol/L Creatinine 1.60 Potassium 4.0 Sodium 141 Chloride 104 Phosphorus 4.0 2.5 - 4.9 mg/dL Calcium 9.1 EGFR 48 mg/dL Albumin 4.7 3.5 - 5.0 g/dL Blood Narrative Resulting Agency Comment Kev Downey Result [facility] LAB BLOOD ORDERABLES Denisse l Result * Creatinine, urine, random (04/22/2025 9:59 AM EST) Pathologist [facility] Creatinine, Urine 115 Urine Narrative Resulting Agency Comment Kev Downey Result [facility] Provider URINE ORDERABLES Final Re sult * Urinalysis w/Rfl to Microscopic (04/22/2025 9:59 AM EST) Pathologist [facility] Glucose, UA Negative Negative Ketones, UA Negative Negative Blood, UA Negative Negative Bilirubin, UA Negative Negative Urobilinogen, UA Normal Normal Protein, UA Negative Negative Nitrite, UA Negative Negative pH, UA 6.0 4.5 - 8.0 Specific Mcallister, UA 1.020 1.005 - 1.030 Clarity, UA Clear Clear Color, UA Yellow Light Yellow, Yellow Urine Narrative Resulting Agency Comment [facility] Result [facility] Provider URINE ORDERABLES Final Re sult * (ABNORMAL) CBC and differential (04/22/2025 9:59 AM EST) [facility] Hemoglobin 14.5 13.5 - 17.5 g/dL [...] Blood Narrative Resulting Agency Comment [facility] Result [facility] Provider LAB BLOOD ORDERABLES Denisse l Result * Urine Protein, Tot, Random (w/o Creat) (04/22/2025 9:59 AM EST) [facility] Total Protein, Ur 16.0 Urine Narrative Resulting Agency Comment [facility] Result [facility] Provider URINE ORDERABLES Final Re sult * Hepatic Function Panel (04/22/2025 9:59 AM EST) Bilirubin, Direct 0.1 Bilirubin, Indirect 0.7 Alkaline Phosphatase 66 ALT 51 AST 54 Total Bilirubin 0.8 Total Protein 6.9 Plasma Narrative Resulting Agency Comment Kev Downey [...] documented as of this encounter Care Teams National Sales Executive Relationship Specialty Start Date End Date Enedina Mcguire NP [address] [place] [address] PCP - General Internal Medicine 10/05/24 Maureen Pantoja RN Txp Post Coordinator Transplant Hepatology 10/28/24 [place] [address] [place] [address] 3200 [place] [address] Consulting Physician Transplant Hepatology 02/26/25 documented as of this encounter
--- OUTSIDE RECORDS SUMMARY | 2025-05-13 10:03 | XMS_ITS | Encounter Summary ---
Author Organization [facility] Address [address] [place] [address] Care Team Providers Care Comfort Filler Name Role Phone Enedina Mcguire APRN Primary Care Provider + Reason for Visit * Reason Onset Date Comments Med Refill 03/16/2025 Encounter Details Date Type Department Care Team ([facility] st Contact Info) Description 03/15/2025 Refill [facility] INTERNAL MEDICINE [address] [place] [address] Eendina Mcguire APRN [address] [place] [address] Acquired hypothyroidism Social History Tobacco [...] Recorded In the past 12 months has [employer], gas, oil, or water company threatened [...] 0 10/02/2022 [facility] - Occupational Stress Questionnaire Answer Date [...] Description 05/21/2025 12:30 PM EST Office Visit [facility] PAIN MANAGEMENT [address] [facility] [address] [place] [address] Vazquez Christie PA-C [address] [facility] [address] [place] [address] 06/08/2025 2:30 PM EST Office Visit [facility] INTERNAL MEDICINE [address] [place] [address] Enedina Mcguire, EDGER OPERATOR [address] [place] [address] documented as of this encounter Visit Diagnoses Diagnosis Acquired hypothyroidism Unspecified hypothyroidism documented in this encounter Additional Health Concerns Assessment Noted Time PHQ-2 Depression Total Score: 1 12/31/19 24 3:25 PM EDT documented as of this encounter Care Teams Comfort Filler Relationship Specialty Start Date End Date Enedina Mcguire APRN [address] [place] [address] PCP - General Nurse Practitioner 10/27/24 documented as of this encounter
--- OUTSIDE RECORDS SUMMARY | 2025-05-13 10:03 | XMS_ITS | Encounter Summary ---
Author Organization [facility] Address [address] [place] [address] Care Team Providers Care Bead Machine Operator Name Role Phone Enedina Mcguire APRN Primary Care Provider + Reason for Visit * Reason Comments Med Refill Encounter Details Date Type Department Care Team ([facility] st Contact Info) Description 03/16/2025 Refill [facility] INTERNAL MEDICINE [address] [place] [address] Enedina Mcguire APRN [address] [place] [address] Erectile dysfunction, unspecified erectile dysfunction [...] 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 [facility] Utilities Answer Date Recorded In the past 12 months has [employer], gas, oil, or water [employer] threatened to shut off services in [...] Score 0 10/02/2022 [facility] - Occupational Stress Questionnaire Answer [...] Description 05/21/2025 12:30 PM EST Office Visit [facility] PAIN MANAGEMENT [address] [address] Vazquez Christie PA-C [address] [place] [address] [id number] 06/08/2025 2:30 PM EST Office Visit [facility] INTERNAL MEDICINE [address] [place] [address] Enedina Mcguire APRN [address] [place], [place] [id number] documented as of this encounter Visit Diagnoses Diagnosis Erectile dysfunction, unspecified erectile dysfunction type documented in this encounter Additional Health Concerns Assessment Noted Time PHQ-2 Depression Total Score: 1 12/31/19 24 3:25 PM EDT documented as of this encounter Care Teams Bead Machine Operator Relationship Specialty Start Date End Date Enedina Mcguire APRN [address] [place] [address] PCP - General Nurse Practitioner 10/27/24 documented as of this encounter
--- OUTSIDE RECORDS SUMMARY | 2025-05-13 10:03 | XMS_ITS | Encounter Summary ---
Author Organization [facility] Address [address] [place] [address] Care Team Providers Care Golf Ball Winder Name Role Phone Enedina Mcguire APRN Primary Care Provider + Encounter Details Date Type Department Care Team (Late st Contact Info) Description 03/19/2025 Documentation [facility] PAIN MANAGEMENT [address] [address] Tye Song MD 17[address] [facility] 302 [place] [address] Social History Tobacco Use Types Packs/Day Years [...] Recorded In the past 12 months has [employer], gas, oil, or water [employer] threatened to shut [...] 0 10/02/2022 [facility] - Occupational Stress Questionnaire Answer [...] Song MD - 03/19/2025 9:37 AM EST [facility] [address] [place] [address] 03/19/2025 PROCEDURE: Greater Occipital Nerve Block -RIGHT [...] discharge. FOLLOW UP: As scheduled ADDITIONAL NOTES: [facility] Pain Management Tye Song MD documented in this encounter Plan of Treatment Upcoming Encounters Date Type Department Care Team (Late st Contact Info) Description 05/21/2025 12:30 PM EST Office Visit [facility] PAIN MANAGEMENT [address] [facility] [address] [place] [address] Vazquez Christie PA-C [address] [facility] [address] [place] [address] 06/08/2025 2:30 PM EST Office Visit [facility] INTERNAL MEDICINE [address] [place] [address] Enedina Mcguire APRN [address] [place] [address] documented as of this encounter Visit Diagnoses Not on filedocumented in this encounter Additional Health Concerns Assessment Noted Time PHQ-2 Depression Total Score: 1 12/31/19 24 3:25 PM EDT documented as of this encounter Care Teams Golf Ball Winder Relationship Specialty Start Date End Date Enedina Mcguire APRN [address] [place] [address] PCP - General Nurse Practitioner 10/27/24 documented as of this encounter
--- OUTSIDE RECORDS SUMMARY | 2025-05-13 10:03 | XMS_ITS | Encounter Summary ---
Author Organization [facility] Address [address] [place] [address] Care Team Providers Care Stone And Concrete Washer Name Role Phone Enedina Mcguire NP Primary Care Provider + [phone] Maureen Pantoja RN Unavailable Unavail able Chris Orosco MD Unavailable [phone] Source Comments This information has been disclosed [...] release of HIV test results or diagnoses. [id number] Encounter Details Date Type Department Care Team (Late st Contact Info) Description 03/30/2025 Chart Note [facility] Liver Transplant at [address] [address] Marlene Ro MA 03/27 Labs entered from [facility] Social History Tobacco Use Types Packs/Day Years Used Date Smoking Tobacco: Former Cigarettes Smokeless Tobacco: Current Alcohol Use Standard Drinks/Week Comments Yes 0 (1 standard drink = 0.6 oz pure alcohol) History of alcohol abuse, reports no use in 3 week- typically endorses use as 4 glasses of wine a days [facility] Utilities Answer Date Recorded In the past 12 months has [employer] electric, gas, oil, or water company threatened [...] 10:15 AM EST 03/27 Labs entered from [facility] documented in this encounter Plan [...] (ABNORMAL) Tacrolimus level (03/27/2025 10:52 AM EST) [facility] Tacrolimus Lvl 18.2(A) 6 - 15 ng/mL Whole Blood Result [facility] LAB BLOOD ORDERABLES Denisse l Result * (ABNORMAL) Magnesium (03/27/2025 10:52 AM EST) [facility] Magnesium 1.1(A) 1.6 - 2.4 mg/dL Plasma Narrative Resulting Agency Comment [facility] Result [facility] LAB BLOOD ORDERABLES Denisse l Result * (ABNORMAL) Renal Function Panel w/o EGFR (03/27/2025 10:52 AM EST) [facility] Glucose 110 BUN 12 CO2 25(A) 13 - 22 mmol/L Creatinine 1.20 Potassium 3.8 Sodium 136 Chloride 99 Phosphorus 3.8 2.5 - 4.9 mg/dL Calcium 9.7 EGFR 67 mg/dL Albumin 4.7 3.5 - 5.0 g/dL Blood Narrative Resulting Agency Comment [facility] Result [facility] LAB BLOOD ORDERABLES Denisse l Result * Creatinine, urine, random (03/27/2025 10:52 AM EST) [facility] Creatinine, Urine 81 Urine Narrative Resulting Agency Comment [facility] Result [facility] Provider URINE ORDERABLES Final Re sult * Urinalysis w/Rfl to Microscopic (03/27/2025 10:52 AM EST) [facility] Glucose, UA Negative Negative Ketones, UA Negative Negative Blood, UA Negative Negative Bilirubin, UA Negative Negative Urobilinogen, UA Normal Normal Protein, UA Negative Negative Nitrite, UA Negative Negative pH, UA 7.0 4.5 - 8.0 Specific [place], UA 1.010 1.005 - 1.030 Clarity, UA Clear Clear Color, UA Yellow Light Yellow, Yellow Urine Narrative Resulting Agency Comment [facility] Result [facility] Provider URINE ORDERABLES Final Re [...] 10^3/mL Blood Narrative Resulting Agency Comment [facility] Result [facility] LAB BLOOD ORDERABLES Denisse l Result * Urine Protein, Tot, Random (w/o Creat) (03/27/2025 10:52 AM EST) Total Protein, Ur 24.0 Urine Narrative Resulting Agency Comment [facility] Result [facility] Provider URINE ORDERABLES Final Re sult * Hepatic Function Panel (03/27/2025 10:52 AM EST) Bilirubin, Direct 0.2 Bilirubin, Indirect 0.7 Alkaline Phosphatase 74 ALT 25 AST 33 Total Bilirubin 0.9 Total Protein 7.1 Plasma Narrative Resulting Agency Comment [facility] us Historical Provider LAB BLOOD ORDERABLES Denisse l Result * Urine culture (03/27/2025 10:52 AM EST) Urine Culture, Comprehensive no growth after 48 hours URINE SPECIMEN / Unknown Narrative Resulting Agency Comment [facility] Historical Provider MICROBIOLOGY - GENERAL OR DERABLES Final Result documented in this encounter Visit Diagnoses Not on filedocumented in this encounter Additional Health Concerns Infection Onset Date Last Indicated Resolved Time C. difficile 01/28/2025 01/28/2025 04/28/2025 9:36 PM EST Assessment Noted Time PHQ-9 Depression Total Score: 2 12/11/19 9:00 AM EDT documented as of this encounter Care Teams Stone And Concrete Washer Relationship Specialty Start Date End Date Enedina Mcguire NP [address] [place] [address] PCP - General Internal Medicine 10/05/24 Maureen Pantoja, ЮЛИЯ Txp Post Coordinator Transplant Hepatology 10/28/24 [place] [address] [place] [address] 3200 [place] [address] Consulting Physician Transplant Hepatology 02/26/25 documented as of this encounter
--- OUTSIDE RECORDS SUMMARY | 2025-05-13 10:03 | XMS_ITS | Encounter Summary ---
Author Organization [facility] Address [address] [place] [address] Care Team Providers Care Clinical Trial Educator Name Role Phone Enedina Mcguire NP Primary Care Provider + [phone] Alicia Rankin RN Unavailable Unavail able Chris Orosco MD Unavailable [phone] Source Comments This information has been disclosed [...] release of HIV test results or diagnoses. [id number] Health Reason for Visit * Reason Comments ask pt how much Mg he is taking / day returning pt's phone call follow up on plan plan of care for patient follow up on plan of care per dr. chandler Encounter Details Date Type Department Care Team (Late st Contact Info) Description 04/03/2025 Telephone [facility] Liver Transplant at [address] [place] [address] Mitzy Gill MA ask pt how [...] 4 glasses of wine a days [facility] Utilities Answer Date Recorded In the past 12 months has th e [employer], gas, oil, or water company threatened to [...] is willing to get a transfusion at [facility] Outpatient Lab. I coordinated with CC [...] - 04/03/2025 1:40 PM EST Steffen from [facility] lab called to report critical lab [...] Date End Date Enedina Mcguire NP [address] [place] [address] PCP - General Internal Medicine 10/05/24 Alicia Rankin, ЮЛИЯ Txp Post Coordinator Transplant Hepatology 10/28/24 Chris Orosco MD [address] [facility] [address] [place] [address] Consulting Physician Transplant Hepatology 02/26/25 documented as of this encounter
--- OUTSIDE RECORDS SUMMARY | 2025-05-13 10:03 | XMS_ITS | Encounter Summary ---
Author Organization [facility] Address [address] [place] [address] Care Team Providers Care Retail Associate Manager Bilingual Name Role Phone Enedina Mcguire APRN Primary Care Provider + Reason for Visit * Reason Onset Date Comments Med Refill 03/20/2025 Encounter Details Date Type Department Care Team ([facility] st Contact Info) Description 03/19/2025 Refill [facility] INTERNAL MEDICINE [address] [place] [address] Enedina Mcguire APRN [address] [place] [address] Low testosterone in male Social History Tobacco Use Types Packs/Day Years Used Date Smoking Tobacco: Former Cigarettes 4 20 Passive Smoke Exposure: Past Smokeless Tobacco: Current Comments:MARIJUANA USE ABOUT 2X PER WEEK - reports no use 08-05-2024 Alcohol Use Standard Drinks/Week Comments Not Currently 0 (1 standard drink = 0.6 oz pure alcohol) 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 [facility] Utilities Answer Date Recorded In the past 12 months has [employer], gas, oil, or water [employer] threatened to shut off services in [...] Score 0 10/02/2022 [facility] - Occupational Stress [...] Description 05/21/2025 12:30 PM EST Office Visit [facility] PAIN [facility]EMENT [address] [address] Vazquez Christie PA-C [address] [address] 06/08/2025 2:30 PM EST Office Visit [facility] INTERNAL MEDICINE [address] [place] [phone] Enedina Mcguire APRN [address] [place] [address] documented as of this encounter Visit Diagnoses Diagnosis Low testosterone in male documented in this encounter Additional Health Concerns Assessment Noted Time PHQ-2 Depression Total Score: 1 12/31/19 24 3:25 PM EDT documented as of this encounter Care Teams Retail Associate Manager Bilingual Relationship Specialty Start Date End Date Enedina Mcguire, RAMBO [address] [place] [id number] PCP - General Nurse Practitioner 10/27/24 documented as of this encounter
--- OUTSIDE RECORDS SUMMARY | 2025-05-13 10:03 | XMS_ITS | Encounter Summary ---
Author Organization [facility] Address [address] [place] [address] Care Team Providers Care Children Counselor Name Role Phone Enedina Mcguire NP Primary Care Provider + [phone] Maureen Pantoja RN Unavailable Unavail able Chris Orosco MD Unavailable [phone] Source Comments This information has been disclosed [...] release of HIV test results or diagnoses. [id number] Reason for Visit * Reason Comments Medication Refill Encounter Details Date Type Department Care Team (Late st Contact Info) Description 02/25/2025 Refill [facility] Liver Transplant at [address] [address] Lydia Sanchez MD [address] [place] [address] Liver[place] [address] Encounter for therapeutic drug monitoring; [...] as 4 glasses of wine a days [facility] Utilities Answer Date Recorded In the past 12 months has th e [employer], [employer], oil, or water company threatened to shut [...] as of this encounter Functional Status * Interventions Question Answer Date of Assessment Author Intervention Type Case Management/Care Coordination 02/25/2025 2:00 PM EDT Kaylin Willard MSW Date of Service [id number] 02/25/2025 2:00 PM EDT Kaylin Willard MSW Time Spent with Patient(minutes) 30 02/25/2025 2:00 PM EDT Kaylin Willard MSW Outcomes Patient Need Met - N o further needs at this time 02/25/2025 2:00 PM EDT Kaylin Willard MSW Referral Source Chart Review/Clinica l Schedule 02/25/2025 2:00 PM EDT Kaylin Willard MSW Role Liver Transplant 02/25/2025 2:00 PM EDT Kaylin Willard MSW documented as of this encounter Plan of [...] documented as of this encounter Care Teams Children Counselor Relationship Specialty Start Date End Date nEedina Mcguire NP [address] [place] [address] PCP - General Internal Medicine 10/05/24 Maureen Pantoja, RN Txp Post Coordinator Transplant Hepatology 10/28/24 Chris Orosco MD [address] [place] [address] Consulting Physician Transplant Hepatology 02/26/25 documented as of this encounter
--- OUTSIDE RECORDS SUMMARY | 2025-05-13 10:03 | XMS_ITS | Encounter Summary ---
Author Organization [facility] Address [address] [place] [address] Care Team Providers Care Electrician Crane Maintenance Name Role Phone Enedina Mcguire NP Primary Care Provider + [phone] Maureen Pantoja RN Unavailable Unavail able Chris Orosco MD Unavailable [phone] Source Comments This information has been disclosed [...] release of HIV test results or diagnoses. [id number] Reason for Visit * Reason Comments Medication Refill Encounter Details Date Type Department Care Team (Late st Contact Info) Description 04/07/2025 Refill [facility] Liver Transplant at [address] [address] Chris Orosco MD [address] [place] [address] Encounter for therapeutic drug monitoring; S/P liver transplant ([facility]); Hypomagnesemia; Kidney transplant recipient; Hypertension, unspecified [...] as 4 glasses of wine a days [facility] Utilities Answer Date Recorded In the past 12 months has th e [email or web address], [employer], oil, or water company threatened to shut [...] as of this encounter Care Teams Electrician Crane Maintenance Relationship Specialty Start Date End Date Enedina Mcguire NP [address] [place] [address] PCP - General Internal Medicine 10/05/24 Maureen Pantoja, ЮЛИЯ Txp Post Coordinator Transplant Hepatology 10/28/24 Chris Orosco MD [address] [place] [address] [place] [address] Consulting Physician Transplant Hepatology 02/26/25 documented as of this encounter
--- OUTSIDE RECORDS SUMMARY | 2025-05-13 10:03 | XMS_ITS | Encounter Summary ---
Author Organization [facility] Address [address] [place] [address] Care Team Providers Care Geospatial Information Scientist Name Role Phone Enedina Mcguire APRN Primary Care Provider + Encounter Details Date Type Department Care Team ([facility] st Contact Info) Description 02/23/2025 Results Follow-Up [facility] INTERNAL MEDICINE [address] [place] [address] Enedina Mcguire APRN [address] [place] [address] Social History Tobacco Use Types [...] Recorded In the past 12 months has [employer], [employer], oil, or water [employer] threatened to shut off services in your [...] Score 0 10/02/2022 [facility] - Occupational Stress Questionnaire Answer [...] Description 05/21/2025 12:30 PM EST Office Visit [facility] PAIN MANAGEMENT [address] [address] Vazquez Christie PA-C [address] [facility] [address] [place] [address] 06/08/2025 2:30 PM EST Office Visit [facility] INTERNAL [facility]ICINE [address] [place] [phone] Enedina Mcguire APRN [address] [place] [address] documented as of this encounter Visit Diagnoses Not on filedocumented in this encounter Additional Health Concerns Assessment Noted Time PHQ-2 Depression Total Score: 1 12/31/19 24 3:25 PM EDT documented as of this encounter Care Teams Geospatial Information Scientist Relationship Specialty Start Date End Date Enedina Mcguire APRN [address] [place] [address] PCP - General Nurse Practitioner 10/27/24 documented as of this encounter
--- OUTSIDE RECORDS SUMMARY | 2025-05-13 10:03 | XMS_ITS | Encounter Summary ---
Author Organization [facility] Address [address] [place] [address] Care Team Providers Care Piping Manager Name Role Phone Enedina Mcguire NP Primary Care Provider + [phone] Maureen Pantoja RN Unavailable Unavail able Chris Orosco MD Unavailable [phone] Source Comments This information has been disclosed [...] release of HIV test results or diagnoses. [id number] Encounter Details Date Type Department Care Team (Late st Contact Info) Description 03/20/2025 Chart Note [facility] Liver Transplant at [address] [address] Marlene Ro MA 03/20 Labs entered from [facility] Social History Tobacco Use Types Packs/Day Years Used Date Smoking Tobacco: Former Cigarettes Smokeless Tobacco: Current Alcohol Use Standard Drinks/Week Comments Yes 0 (1 standard drink = 0.6 oz pure alcohol) History of alcohol abuse, reports no use in 3 week- typically endorses use as 4 glasses of wine a days [facility] Utilities Answer Date Recorded In the past 12 months has [employer], gas, oil, or water company threatened [...] 11:09 AM EST 03/20 Labs entered from [facility] documented in this encounter Plan of Treatment [...] 6 - 15 ng/mL Whole Blood Result [facility] Provider LAB BLOOD ORDERABLES Denisse l Result * Phatidylethanol (PEth) (03/20/2025 7:15 AM EST) Phosphatidylethanol (PEth) Positive 409 Whole Blood Result [facility] Provider LAB BLOOD ORDERABLES Denisse l Result * BK Virus Quantitative by PCR, Blood (03/20/2025 7:15 AM EST) BK Virus Quant PCR PL negative Plasma Result [facility] LAB BLOOD ORDERABLES Denisse l Result * Urine culture (03/20/2025 7:15 AM EST) Urine Culture, Comprehensive no growth after 48 hours URINE SPECIMEN / Unknown Result [facility] Provider MICROBIOLOGY - GENERAL OR DERABLES Final Result * Creatinine, urine, random (03/20/2025 7:15 AM EST) Creatinine, Urine 111 Urine Result [facility] Provider URINE ORDERABLES Final Re sult * Urine Protein, Tot, Random (w/o Creat) (03/20/2025 7:15 AM EST) Total Protein, Ur 19.0 Urine Result [facility] Provider URINE ORDERABLES Final Re sult * (ABNORMAL) Magnesium (03/20/2025 7:15 AM EST) Magnesium 1.2(A) 1.6 - 2.4 mg/dL Plasma Narrative Resulting Agency Comment [facility] Provider LAB BLOOD ORDERABLES Denisse l Result * (ABNORMAL) Urinalysis w/Rfl to Microscopic (03/20/2025 7:15 AM EST) [facility] Glucose, UA Negative Negative Ketones, UA Negative Negative Blood, UA Negative Negative Bilirubin, UA Negative Negative Urobilinogen, UA Normal Normal Protein, UA Trace(A) Negative Nitrite, UA Negative Negative Clarity, UA Clear Clear Color, UA Yellow Light Yellow, Yellow Urine Narrative Resulting Agency Comment [facility] Provider URINE ORDERABLES Final Re sult * (ABNORMAL) Renal Function Panel w/o EGFR (03/20/2025 7:15 AM EST) [facility] Glucose 153 BUN 14 CO2 25(A) 13 - 22 mmol/L Creatinine 1.20 Potassium 4.2 Sodium 137 Chloride 103 Phosphorus 3.8 2.5 - 4.9 mg/dL Calcium 9.7 EGFR 67 mg/dL Albumin 4.4 3.5 - 5.0 g/dL Blood Narrative Resulting Agency Comment [facility] Provider LAB BLOOD ORDERABLES Denisse l Result * (ABNORMAL) CBC and differential (03/20/2025 7:15 AM EST) [facility] Hemoglobin 13.3(A) 13.5 - 17.5 g/dL Hematocrit [...] 8.5 10^3/mL Blood Narrative Resulting Agency Comment [facility] Provider LAB BLOOD ORDERABLES Denisse l Result * Hepatic Function Panel (03/20/2025 7:15 AM EST) Bilirubin, Direct 0.2 Bilirubin, Indirect 0.4 Alkaline Phosphatase 71 ALT 19 AST 21 Total Bilirubin 0.6 Total Protein 7.1 Plasma Narrative Resulting Agency Comment [facility] Provider LAB BLOOD ORDERABLES Denisse l Result documented in this encounter Visit Diagnoses Not on filedocumented in this encounter Additional Health Concerns Infection Onset Date Last Indicated Resolved Time C. difficile 01/28/2025 01/28/2025 04/28/2025 9:36 PM EST Assessment Noted Time PHQ-9 Depression Total Score: 2 12/11/19 9:00 AM EDT documented as of this encounter Care Teams Piping Manager Relationship Specialty Start Date End Date Enedina Mcguire NP [address] [place] [address] PCP - General Internal Medicine 10/05/24 Maureen Pantoja, ЮЛИЯ Txp Post Coordinator Transplant Hepatology 10/28/24 Chris Orosco MD [address] [place] [address] [place] [address] Consulting Physician Transplant Hepatology 02/26/25 documented as of this encounter
--- OUTSIDE RECORDS SUMMARY | 2025-05-13 10:03 | XMS_ITS | Encounter Summary ---
Author Organization [facility] Address [address] [place] [address] Care Team Providers Care Tube Molder Fiberglass Name Role Phone Jony Conde MD Primary Care Provider [phone] Lj Tapia TWISTING DEPARTMENT END FINDER Unavailable [phone] Enedina Mcguire APRN Primary Care Provider + Nuria Fall STORAGE BATTERY CHARGER Unavailable Unavaila ble Encounter Details Date Type Department Care Team (Late st Contact Info) Description 07/04/2022 Orders Only External Location [address] [place] [address] [place] [address] Social History Tobacco Use Types Packs/Day Years [...] filedocumented in this encounter Care Teams Tube Molder Fiberglass Relationship Specialty Start Date End Date Jony Conde MD #[id number] PCP - General 07/18/22 12/03/22 Enedina Mcguire APRN [address] [place] [address] PCP - General 12/04/22 Lj Tapia APRN [address] Referring Physician Gastroenterology 07/18/22 Nuria Fall LPN [facility] None TCM Nurse 07/24/24 08/23/24 documented as of this encounter
--- OUTSIDE RECORDS SUMMARY | 2025-05-13 10:03 | XMS_ITS | Encounter Summary ---
Author Organization [facility] Address [address] [place] [address] Care Team Providers Care Independent Film Maker Name Role Phone Enedina Mcguire APRN Primary Care Provider + Encounter Details Date Type Department Care Team ([facility] st Contact Info) Description 10/07/2024 Results Follow-Up [facility] INTERNAL MEDICINE [address] [place] [address] Enedina Mcguire APRN [address] [place] [address] Social History Tobacco Use Types [...] Recorded In the past 12 months has [employer], [employer], oil, or water [employer] threatened to shut off services in your [...] 0 10/02/2022 [facility] - Occupational [...] [facility] PAIN MANAGEMENT [address] [address] Vazquez Christie PA-C [address] [facility] [address] [place] [address] 06/08/2025 2:30 PM EST Office Visit [facility] INTERNAL MEDICINE [address] [place] [phone] Enedina Mcguire APRN [address] [place] [address] documented as of this encounter Visit Diagnoses Not on filedocumented in this encounter Additional Health Concerns Assessment Noted Time PHQ-2 Depression Total Score: 1 12/31/19 24 3:25 PM EDT documented as of this encounter Care Teams Independent Film Maker Relationship Specialty Start Date End Date Enedina Mcguire APRN [address] [place] [address] PCP - General Nurse Practitioner 10/27/24 documented as of this encounter
--- OUTSIDE RECORDS SUMMARY | 2025-05-13 10:03 | XMS_ITS | Encounter Summary ---
Author Organization [facility] Address [address] [place] [address] Care Team Providers Care Energy Efficient Site Manager Name Role Phone Enedina Mcguire NP Primary Care Provider + [phone] Maureen Pantoja RN Unavailable Unavail able Chris Orosco MD Unavailable [phone] Source Comments This information has been disclosed [...] release of HIV test results or diagnoses. [id number] [facility] Reason for Visit * Reason Comments Results Medication Dose Change Encounter Details Date Type Department Care Team (Late st Contact Info) Description 03/24/2025 Telephone [facility] Liver Transplant at [address] [address] Maureen Pantoja, ЮЛИЯ Results; Medication Dose Change Social History Tobacco Use Types Packs/Day Years Used Date Smoking Tobacco: Former Cigarettes Smokeless Tobacco: Current Alcohol Use Standard Drinks/Week Comments Yes 0 (1 standard drink = 0.6 oz pure alcohol) History of alcohol abuse, reports no use in 3 week- typically endorses use as 4 glasses of wine a days [facility] Utilities Answer Date Recorded In the past 12 months has [employer], gas, oil, or water company threatened [...] for therapeutic drug monitoring S/P liver transplant ([facility]) Hypomagnesemia Disorders of magnesium metabolism Kidney transplant recipient Hypertension, unspecified type Gastroesophageal reflux disease, unspecified whether esophagitis present documented in this encounter Additional Health Concerns Infection Onset Date Last Indicated Resolved Time C. difficile 01/28/2025 01/28/2025 04/28/2025 9:36 PM EST Assessment Noted Time PHQ-9 Depression Total Score: 2 12/11/19 9:00 AM EDT documented as of this encounter Care Teams Energy Efficient Site Manager Relationship Specialty Start Date End Date Enedina Mcguire NP [address] [place] [address] PCP - General Internal Medicine 10/05/24 Maureen Pantoja, ЮЛИЯ Txp Post Coordinator Transplant Hepatology 10/28/24 Chris Orosco MD [address] [place] [address] [address] [place] [address] Consulting Physician Transplant Hepatology 02/26/25 documented as of this encounter
--- OUTSIDE RECORDS SUMMARY | 2025-05-13 10:03 | XMS_ITS | Encounter Summary ---
Author Organization [facility] Address [address] [place] [address] Care Team Providers Care Manager Farm Name Role Phone Enedina Mcguire NP Primary Care Provider + [phone] Maureen Pantoja RN Unavailable Unavail able Chris Orosco MD Unavailable [phone] Source Comments This information has been disclosed [...] release of HIV test results or diagnoses. [id number] Encounter Details Date Type Department Care Team (Late st Contact Info) Description 04/03/2025 Chart Note [facility] Liver Transplant at [address] [address] Marlene Ro MA 04/03 Labs entered from [facility] Social [...] Recorded In the past 12 months has [employer] electric, gas, oil, or water company threatened [...] were not included. 04/03 Labs entered from [facility] documented [...] * (ABNORMAL) Magnesium (04/03/2025 12:04 PM EST) [facility] Magnesium 1.0(A) 1.6 - 2.4 mg/dL Plasma Narrative Resulting Agency Comment [facility] Result [facility] LAB BLOOD ORDERABLES Denisse l Result * (ABNORMAL) Renal Function Panel w/o EGFR (04/03/2025 12:04 PM EST) [facility] Glucose 122 BUN 11 CO2 24(A) 13 - 22 mmol/L Creatinine 1.20 Potassium 3.5 Sodium 136 Chloride 100 Phosphorus 3.3 2.5 - 4.9 mg/dL Calcium 9.3 EGFR 67 mg/dL Albumin 5.0 3.5 - 5.0 g/dL Blood Narrative Resulting Agency Comment [facility] Result [facility] LAB BLOOD ORDERABLES Denisse l Result * Urinalysis w/Rfl to Microscopic (04/03/2025 12:04 PM EST) [facility] Glucose, UA Negative Negative Ketones, UA Negative Negative Blood, UA Negative Negative Bilirubin, UA Negative Negative Urobilinogen, UA Normal Normal Protein, UA Negative Negative pH, UA 7.0 4.5 - 8.0 Specific [place], UA 1.010 1.005 - 1.030 Clarity, UA Clear Clear Color, UA Yellow Light Yellow, Yellow Urine Narrative Resulting Agency Comment [facility] Result [facility] Provider URINE ORDERABLES Final Re sult * (ABNORMAL) CBC and differential (04/03/2025 12:04 PM EST) [facility] Hemoglobin 14.5 13.5 - 17.5 g/dL [...] 8.1 10^3/mL Blood Narrative Resulting Agency Comment [facility] Provider LAB BLOOD ORDERABLES Denisse l Result * Hepatic Function Panel (04/03/2025 12:04 PM EST) Bilirubin, Direct 0.2 Bilirubin, Indirect 0.7 Alkaline Phosphatase 123 ALT 53 AST 41 Total Bilirubin 0.9 Total Protein 7.1 Plasma Narrative Resulting Agency Comment [facility] Provider LAB BLOOD ORDERABLES Denisse l Result documented in this encounter Visit Diagnoses Not on filedocumented in this encounter Additional Health Concerns Infection Onset Date Last Indicated Resolved Time C. difficile 01/28/2025 01/28/2025 04/28/2025 9:36 PM EST Assessment Noted Time PHQ-9 Depression Total Score: 2 12/11/19 25 9:00 AM EDT documented as of this encounter Care Teams Manager Farm Relationship Specialty Start Date End Date Enedina Mcguire NP [address] [place] [address] PCP - General Internal Medicine 10/05/24 Maureen Pantoja, ЮЛИЯ Txp Post Coordinator Transplant Hepatology 10/28/24 Chris Orosco MD [address] [place] [address] [place] [address] Consulting Physician Transplant Hepatology 02/26/25 documented as of this encounter
--- OUTSIDE RECORDS SUMMARY | 2025-05-13 10:03 | XMS_ITS | Encounter Summary ---
Author Organization [facility] Address [address] [place] [address] Care Team Providers Care Fruit Dryer Name Role Phone Enedina Mcguire NP Primary Care Provider + [phone] Maureen Pantoja RN Unavailable Unavail able Chris Orosco MD Unavailable [phone] Source Comments This information has been disclosed [...] release of HIV test results or diagnoses. [id number] Encounter Details Date Type Department Care Team (Late st Contact Info) Description 04/16/2025 Social Work [facility] Liver Transplant at [address] [address] Kaylin Willard MSW Social History Tobacco Use Types Packs/Day Years Used Date Smoking Tobacco: Former Cigarettes Smokeless Tobacco: Current Alcohol Use Standard Drinks/Week Comments Yes 0 (1 standard drink = 0.6 oz pure alcohol) History of alcohol abuse, reports no use in 3 week- typically endorses use as 4 glasses of wine a days [facility] Utilities Answer Date Recorded In the past 12 months has [employer], gas, oil, or water company threatened [...] Assessment Author Intervention Type Case Management/Care Coordination 04/17/2025 9:00 AM Kaylin Herrera MSW Date of Service [address] 04/17/2025 9:00 AM Kaylin Herrera MSW Time Spent with Patient(minutes) 60 04/17/2025 9:00 AM Kaylin Herrera MSW Outcomes Patient Need Met - N o further needs at this time 04/17/2025 9:00 AM Kaylin Herrera MSW Referral Source Chart Review/Clinica l Schedule 04/17/2025 9:00 AM Kaylin Herrera MSW Role Liver Transplant 04/17/2025 9:00 AM Kaylin Herrera MSW documented as of this encounter Progress Notes * NUBIA Barros - 04/16/2025 1:53 PM EST Social Work Outpatient Note- Liver Transplant Patient is status post SLK transplant on 10/27/2024. MEREDITH met with Patient and spouse during Post [...] and notes he did not use during holiday. His adds that she does not allow [...] for resources and provide to patient via [employer]. Patient has also stopped taking Naltrexone and was started on Topamax and discussed possible Vivitrol injection with SW and providers today. SW to continue to follow. NUBIA Barros, HR GENERALIST Transplant Account Manager documented in this encounter Plan of Treatment Not on file documented as of this encounter Visit Diagnoses Not on filedocumented in this encounter Additional Health Concerns Infection Onset Date Last Indicated Resolved Time C. difficile 01/28/2025 01/28/2025 04/28/2025 9:36 PM EST Assessment Noted Time PHQ-9 Depression Total Score: 2 12/11/19 9:00 AM EDT documented as of this encounter Care Teams Fruit Dryer Relationship Specialty Start Date End Date Enedina Mcguire NP [address] [place] [address] PCP - General Internal Medicine 10/05/24 Maureen Pantoja, ЮЛИЯ Txp Post Coordinator Transplant Hepatology 10/28/24 Chris Orosco MD [address] [place], [place] [address] [address] [place] [address] Consulting Physician Transplant Hepatology 02/26/25 documented as of this encounter
--- OUTSIDE RECORDS SUMMARY | 2025-05-13 10:03 | XMS_ITS | Encounter Summary ---
Author Organization [facility] Address [address] [place] [address] Care Team Providers Care Dairy And Food Laboratory Assistant Name Role Phone Jony Conde MD Primary Care Provider [phone] Lj Tapia FRUCTOSE LOADER Unavailable [phone] Enedina Mcguire FRUCTOSE LOADER Primary Care Provider + Nuria Fall CONFERENCE INTERPRETER Unavailable Unavaila ble Encounter Details Date Type Department Care Team (Late st Contact Info) Description 07/03/2022 Orders Only External Location [address] [place] [address] [place] [address] Social [...] filedocumented in this encounter Care Teams Dairy And Food Laboratory Assistant Relationship Specialty Start Date End Date Jony Conde MD #[id number] PCP - General 07/18/22 12/03/22 Enedina Mcguire APRN [address] [place] [address] PCP - General 12/04/22 Lj Tapia APRN [address] Referring Physician Gastroenterology 07/18/22 Nuria Fall LPN [facility] None TCM Nurse 07/24/24 08/23/24 documented as of this encounter
--- OUTSIDE RECORDS SUMMARY | 2025-05-13 10:03 | XMS_ITS | Encounter Summary ---
Author Organization [facility] Address [address] [place] [address] Care Team Providers Care Ornament Stitcher Name Role Phone Enedina Mcguire NP Primary Care Provider + [phone] Maureen Pantoja RN Unavailable Unavail able Chris Orosco MD Unavailable [phone] Source Comments This information has been disclosed [...] release of HIV test results or diagnoses. [id number] Reason for Visit * Reason Comments Medication Refill Encounter Details Date Type Department Care Team (Late st Contact Info) Description 03/31/2025 Refill [facility] Liver Transplant at [address] [address] Harvey Domínguez III, MD [address] [place] [address] Social History Tobacco Use Types Packs/Day [...] the past 12 months has th e [employer], [employer], oil, or water [employer] threatened to shut off services in [...] documented as of this encounter Care Teams Ornament Stitcher Relationship Specialty Start Date End Date Enedina Mcguire NP [address] [place] [address] PCP - General Internal Medicine 10/05/24 Maureen Pantoja, ЮЛИЯ Txp Post Coordinator Transplant Hepatology 10/28/[address] [facility] [address] [place] [address] Consulting Physician Transplant Hepatology 02/26/25 documented as of this encounter
--- OUTSIDE RECORDS SUMMARY | 2025-05-13 10:03 | XMS_ITS | Encounter Summary ---
Author Organization [facility] Address [address] [place] [address] Care Team Providers Care Bark Spudder Name Role Phone Jony Conde MD Primary Care Provider [phone] Lj Tapia PUZZLE ASSEMBLER Unavailable [phone] Enedina Mcguire APRN Primary Care Provider + Nuria Fall KNOCKOUT MAN Unavailable Unavaila ble Encounter Details Date Type Department Care Team (Late st Contact Info) Description 07/02/2022 Orders Only External Location [address] [place] [address] Provider, External Social History Tobacco Use Types [...] on filedocumented in this encounter Care Teams Bark Spudder Relationship Specialty Start Date End Date Jony Conde MD #[id number] PCP - General 07/18/22 12/03/22 Enedina Mcguire APRN [address] [place] [address] PCP - General 12/04/22 Lj Tapia APRN [address] Referring Physician Gastroenterology 07/18/22 Nuria Fall LPN [facility] None TCM Nurse 07/24/24 08/23/24 documented as of this encounter
--- OUTSIDE RECORDS SUMMARY | 2025-05-13 10:03 | XMS_ITS | Encounter Summary ---
Author Organization [facility] Address [address] [place] [address] Care Team Providers Care Deicer Finisher Name Role Phone Enedina Mcguire NP Primary Care Provider + [phone] Maureen Pantoja RN Unavailable Unavail able Chris Orosco MD Unavailable [phone] Source Comments This information has been disclosed [...] release of HIV test results or diagnoses. [id number] [facility] Encounter Details Date Type Department Care Team (Late st Contact Info) Description 04/06/2025 Telephone [facility] Liver Transplant at [address] [address] Mitzy Gill MA Social History [...] Recorded In the past 12 months has [employer], gas, oil, or water company threatened [...] - 04/06/2025 10:40 AM EST Ashley from [facility] called to report critical lab value for [...] documented as of this encounter Care Teams Deicer Finisher Relationship Specialty Start Date End Date Enedina Mcguire NP [address] [place] [address] PCP - General Internal Medicine 10/05/24 Maureen Pantoja, ЮЛИЯ Txp Post Coordinator Transplant Hepatology 10/28/24 Chris Orosco MD [address] [place] [address] [place] [address] Consulting Physician Transplant Hepatology 02/26/25 documented as of this encounter
--- OUTSIDE RECORDS SUMMARY | 2025-05-13 10:03 | XMS_ITS | Encounter Summary ---
Author Organization Healthcare Address [address] [place] [address] Care Team Providers Care Gambling Box Person Name Role Phone Jony Conde MD Primary Care Provider [phone] Lj Tapia CHIEF DEPUTY Unavailable [phone] Enedina Mcguire APRN Primary Care Provider + Nuria Fall DIRECTOR OF TAX SERVICES Unavailable Unavaila ble Encounter Details Date Type Department Care Team (Late st Contact Info) Description 07/04/2022 Orders Only External Location [address] [place] [address] [place] [address] Social [...] on filedocumented in this encounter Care Teams Gambling Box Person Relationship Specialty Start Date End Date Jony Conde MD #[id number] PCP - General 07/18/22 12/03/22 Enedina Mcguire APRN [address] [place] [address] PCP - General 12/04/22 Lj Tapia APRN [address] Referring Physician Gastroenterology 07/18/22 Nuria Fall LPN [facility] None TCM Nurse 07/24/24 08/23/24 documented as of this encounter
--- OUTSIDE RECORDS SUMMARY | 2025-05-13 10:03 | XMS_ITS | Encounter Summary ---
Author Organization [facility] Address [address] [place] [address] Care Team Providers Care Information Systems Professor Name Role Phone Enedina Mcguire NP Primary Care Provider + [phone] Maureen Pantoja RN Unavailable Unavail able Chris Orosco MD Unavailable [phone] Source Comments This information has been disclosed [...] release of HIV test results or diagnoses. [id number] Health Reason for Visit * Reason Comments Results Encounter Details Date Type Department Care Team (Late st Contact Info) Description 04/07/2025 Telephone [facility] Liver Transplant at [address] [address] Maureen Pantoja, ЮЛИЯ Results Social [...] Recorded In the past 12 months has [employer], gas, oil, or water company threatened to [...] of this encounter Care Teams Information Systems Professor Relationship Specialty Start Date End Date Enedina Mcguire NP [address] [place] [address] PCP - General Internal Medicine 10/05/24 Maureen Pantoja, ЮЛИЯ Txp Post Coordinator Transplant Hepatology 10/28/24 Chris Orosco MD [address] [place] [address] [address] [place] [address] Consulting Physician Transplant Hepatology 02/26/25 documented as of this encounter
--- OUTSIDE RECORDS SUMMARY | 2025-05-13 10:03 | XMS_ITS | Encounter Summary ---
Author Organization [facility] Address [address] [place] [address] Care Team Providers Care Systems Analyst Name Role Phone Enedina Mcguire APRN Primary Care Provider + Encounter Details Date Type Department Care Team ([facility] st Contact Info) Description 10/07/2024 Results Follow-Up [facility] INTERNAL MEDICINE [address] [place] [address] Enedina Mcguire APRN [address] [place] [address] Social History Tobacco Use Types [...] Recorded In the past 12 months has [employer], [employer], oil, or water [employer] threatened to shut off services in your [...] Score 0 10/02/2022 [facility] - Occupational Stress Questionnaire Answer [...] Description 05/21/2025 12:30 PM EST Office Visit [facility] PAIN MANAGEMENT [address] [address] Vazquez Christie PA-C [address] [facility] [address] [place] [address] 06/08/2025 2:30 PM EST Office Visit [facility] INTERNAL MEDICINE [address] [place] [phone] Enedina Mcguire APRN [address] [place] [address] documented as of this encounter Visit Diagnoses Not on filedocumented in this encounter Additional Health Concerns Assessment Noted Time PHQ-2 Depression Total Score: 1 12/31/19 24 3:25 PM EDT documented as of this encounter Care Teams Systems Analyst Relationship Specialty Start Date End Date Enedina Mcguire APRN [address] [place] [address] PCP - General Nurse Practitioner 10/27/24 documented as of this encounter
--- OUTSIDE RECORDS SUMMARY | 2025-05-13 10:03 | XMS_ITS | Encounter Summary ---
Author Organization Address [address] [place] [address] Care Team Providers Care Sprinkler Worker Name Role Phone Enedina Mcguire NP Primary Care Provider + [phone] Maureen Pantoja RN Unavailable Unavail able Chris Orosco MD Unavailable [phone] Source Comments This information has been disclosed [...] release of HIV test results or diagnoses. [id number] Health Reason for Visit * Reason Comments Results Encounter Details Date Type Department Care Team (Late st Contact Info) Description 04/20/2025 Telephone [facility] Liver Transplant at [address] [address] Maureen Pantoja, ЮЛИЯ Results Social [...] Recorded In the past 12 months has [employer], gas, oil, or water company threatened to [...] documented as of this encounter Care Teams Sprinkler Worker Relationship Specialty Start Date End Date Enedina Mcguire NP [address] [place] [address] PCP - General Internal Medicine 10/05/24 Maureen Pantoja, ЮЛИЯ Txp Post Coordinator Transplant Hepatology 10/28/24 Chris Orosco MD [address] [place] [address] [address] [place] [address] Consulting Physician Transplant Hepatology 02/26/25 documented as of this encounter
--- OUTSIDE RECORDS SUMMARY | 2025-05-13 10:03 | XMS_ITS | Encounter Summary ---
Author Organization [facility] Address [address] [place] [address] Care Team Providers Care Load Mixer Name Role Phone Enedina Mcguire APRN Primary Care Provider + Reason for Visit * Reason Comments Med Refill Encounter Details Date Type Department Care Team (Late st Contact Info) Description 09/12/[address] [facility] GASTROENTEROLOGY [address] [place] [phone] Lj Tapia APRN [address] [place] [address] Social History Tobacco Use Types Packs/Day Years [...] Description 05/21/2025 12:30 PM EST Office Visit [facility] PAIN MANAGEMENT [address] [address] Vazquez Christie PA-C [address] [facility] [address] [place] [address] 06/08/2025 2:30 PM EST Office Visit [facility] INTERNAL MEDICINE [address] [place] [address] Enedina Mcguire APRN [address] [place] [address] [phone] documented as of this encounter Visit Diagnoses Not on filedocumented in this encounter Care Teams Load Mixer Relationship Specialty Start Date End Date Enedina Mcguire APRN [address] [place] [phone] PCP - General Nurse Practitioner 10/27/24 documented as of this encounter
--- OUTSIDE RECORDS SUMMARY | 2025-05-13 10:04 | XMS_ITS | Encounter Summary ---
Author Organization [facility] ([place], [place], [place], [place], [place]) Address [address] [place] [address] Care Team Providers Care Hospitality Associate Name Role Phone Unavailable Primary Care Provider Unavailabl e Encounter Details Date Type Department Care Team (Late st Contact Info) Description 06/03/2018 Transcribed Document [facility] Family Medicine [facility] [place] [address] ProviderEbenezer MD [address] [place] [address] Social History Tobacco Use Types [...] - Historical ProviderMD - 06/03/2018 12:08 PM WASHING MACHINE OPERATOR ED Triage Entered On: 06/03/2018 12:17 EST Performed On: 06/03/2018 12:12 EST by KANU VELEZ RN ED Triage Across the Room Triage Date/Time : 06/03/2018 12:12 EST Chief Complaint : lacerations to rt index and left middle finger 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 lacerations noted with bleeding controlled KANU [...] 12:17:41 EST) Problems(Active) HTN (hypertension) (SNOMED CT :3013289165 ) Name of Problem: HTN (hypertension) ; Recorder: KANU VELEZ RN; Confirmation: Confirmed ; Classification: Medical ; Code: [id number] ; Contributor System: Jibestream ; Last Updated: 06/03/2018 12:14 EST ; Life Cycle Date: 06/03/2018 ; Life Cycle Status: Active ; Vocabulary: SNOMED CT Diagnoses(Active) Finger laceration Date: 06/03/2018 ; Diagnosis Type: Reason For Visit ; Confirmation: Complaint of ; Clinical Dx: Finger laceration ; Classification: Medical ; Clinical Service: Emergency medicine ; Code: PNED ; Probability: 0 ; Diagnosis Code: [id number] ED Height and Weight Height Source : Stated Height Entry Format : [place] Height, Feet : 6 ft(Converted to: 183 cm, 72 Inch) Height, Inches : 4 Inch(Converted to: 0 ft 4 Inch, 10.16 cm) Clinical Height : 193.04 cm Weight Source, ED : Standing scale Weight Entry Format : [place] Weight, Pounds : 265 lb Clinical Dosing Weight : 120.45 kg Body Surface Area (BSA) : 2.5 m2 Body Mass Index : 32.3 kg/m2 (HI) [place] Body Weight (IBW) : 85.74 kg KANU [...]
--- OUTSIDE RECORDS SUMMARY | 2025-05-13 10:04 | XMS_ITS | Clinical Summary ---
Author Organization [facility] Address [address] [place] [address] Care Team Providers Care Certification Technician Name Role Phone Enedina Mcguire APRN [...] Activ e vitamin D (ERGOCALCIFEROL) 1.25 MG (85306 UT) capsule capsuleIndications :Vitamin D deficiency Take [...] Week. 12 each 1 04/20/20 25 Active NIFEdipine XL (PROCARDIA XL) 30 [...] Date Type Department Care Team Description [facility] [address] [place] [phone] Enedina Mcguire APRN Low testosterone in male 04/15/2025 Refill [facility] INTERNAL MEDICINE [address] [place] [phone] Enedina Mcguire APRN Low testosterone in male 04/07/2025 Refill [facility] INTERNAL MEDICINE [address] [place] [phone] Enedina Mcguire APRN 03/19/2025 11:30 AM EST Outside Facility Service [facility] PAIN MANAGEMENT [address] [address] Tye Song MD 03/19/2025 Refill [facility] INTERNAL MEDICINE [address] [place] [phone] Enedina Mcguire, RAMBO Low testosterone in male 03/19/2025 Documentation [facility] PAIN MANAGEMENT [address] [address] Tye Song MD 03/16/2025 Refill [facility] INTERNAL MEDICINE [address] [place] [phone] Enedina Mcguire APRN Erectile dysfunction, unspecified erectile dysfunction type 03/15/2025 Refill [facility] INTERNAL MEDICINE [address] [place] [phone] Enedina Mcguire APRN Acquired hypothyroidism 03/03/2025 1:45 PM EDT Office Visit [facility] PAIN MANAGEMENT [address] [facility] [address] [place] [address] Vazquez Christie PA-C Occipital neuralgia of right side (Primary Dx); Cervical spondylosis without myelopathy; Cervical pain (neck); Long-term use of high-risk medication; Cervical radiculopathy; Therapeutic drug monitoring; Chronic pain syndrome 03/03/2025 Travel 03/02/2025 Telephone [facility] PAIN MANAGEMENT [address] [address] Georgina Rainey MA 02/23/2025 Prior Authorization [facility] INTERNAL MEDICINE [address] [place] [phone] Enedina Mcguire, VENEER GLUE SPREADER 02/23/2025 Results Follow-Up [facility] INTERNAL MEDICINE [address] [place] [phone] Enedina Mcguire, VENEER GLUE SPREADER 02/20/2025 Telephone [facility] INTERNAL MEDICINE [address] [place] [phone] Enedina Mcguire, RAMBO Results 02/20/2025 Telephone [facility] PAIN MANAGEMENT [address] [address] Georgina Rainey MA 02/19/2025 7:45 AM EDT Outside Facility Service [facility] PAIN MANAGEMENT [address] [facility] [address] [place] [address] Tye Song MD 02/19/2025 Documentation [facility] PAIN MANAGEMENT [address] [address] Tye Song MD 02/17/2025 3:15 PM EDT Office Visit [facility] INTERNAL MEDICINE [address] [place] [phone] Enedina Mcguire, RAMBO Encounter for follow-up (Primary Dx); Kidney transplant recipient; Liver transplant recipient; Vitamin D deficiency; Low testosterone in male; History of systemic steroid therapy 02/17/2025 Telephone [facility] INTERNAL MEDICINE [address] [place] [phone] Enedina Mcguire APRN 02/17/2025 Travel 02/11/2025 Telephone [facility] PAIN MANAGEMENT [address] [address] Tey Song MD BURGESS- INJECTION SCHEDULE from Last 3 Months Immunizations Immunization Administration Dates Next Due COVID-19 (MODERNA) 1st,2nd,3 rd Dose Monovalent 03/17/2021,07/25/2020,06/27/2020 Hep B, Unspecified 09/13/2010 Influenza, Unspecified 03/12/2024,03/12/2023 Tdap 06/03/2018,09/13/2010 Varicella 09/13/2010 Family History Medical History Relation Name Comments No Known Problems Brother Arthritis Father Pat Justin Hyperlipidemia Father Pat Justin Hypertension Father Pat Justin Osteoarthritis Father Pat Justin Alcohol abuse Maternal Grandfather Elton Pascal Stroke [...] the past 12 months has th e [employer], gas, oil, or water [employer] threatened to shut off services in your [...] Brief Depression Severity Measure Score 0 10/02/2022 [facility] Occupat ional Health - Occupational Stress [...] Description 05/21/2025 12:30 PM EST Office Visit [facility] PAIN MANAGEMENT [address] [facility] [address] [place] [address] Vazquez Christie PA-C [address]60 [facility] [address] [place] [address] 06/08/2025 2:30 PM EST Office Visit [facility] INTERNAL MEDICINE [address] [place] [address] Enedina Mcguire, VENEER GLUE SPREADER [address] [place], [place] [phone] Health Maintenance Due Date Last Done Comments [...] 0-49 Discontinued Medical Devices Implanted Type Area Artistic Director Device Identifier Shelf Expiration Date Model / Serial / Lot Coil Concerto Pgla Hel Detach Sys 10mm 30cm - [id number] Implanted:Qty: 1 on 07/03/2022 by Timmy Brunner MD at [facility] Implant Left: Vein EV3 A [employer] [id number] / / [id number] Description:Coil is in the s hort gastric vein Coil Concerto Nyl Cygnet Detach Sys 10mm 30cm - [id number] Implanted:Qty: 1 on 07/03/2022 by Timmy Brunner MD at [facility] Implant Left: Vein EV3 A [employer] [id number] / / [id number] Description:Short gastric ve in Coil Concerto Nyl Cygnet Detach Sys 10mm 30cm - [id number] Implanted:Qty: 1 on 07/03/2022 by Timmy Brunner MD at [facility] Implant Left: Vein EV3 A [employer] [id number] / / [id number] Description:Short gasrtic ve in Coil Concerto Nyl Cygnet Detach Sys 10mm 30cm - [id number] Implanted:Qty: 1 on 07/03/2022 by Timmy Brunner MD at [facility] Implant Left: Vein EV3 A [employer] [id number] / / [id number] Description:Short gastric ve in Coil Concerto Nyl Cygnet Detach Sys 8mm 30cm - [id number] Implanted:Qty: 1 on 07/03/2022 by Timmy Brunner MD at [facility] Implant Left: Vein EV3 A [employer] [id number] / / [id number] Description:Short gastric ve in Coil Concerto Nyl Cygnet Detach Sys 8mm 30cm - [id number] Implanted:Qty: 1 on 07/03/2022 by Timmy Brunner MD at [facility] Implant Left: Vein EV3 A [employer] [id number] / / [id number] Description:Short gastric ve in Sys Del Liq Emb Trufill Nbca 1g Vl - [id number] Implanted:Qty: 1 on 07/03/2022 by Timmy Brunner MD at [facility] Implant Left: Vein [facility] [id number] / / [id number] Description:Short gastric ve in Plug Vasc Anton Emb Ampltz .027 [id number] - [id number] Implanted:Qty: 1 on 07/03/2022 by Timmy Brunner MD at [facility] Implant Left: Vein [employer] [id number] / / [id number] Description:Coronary vein Coil Concerto Nyl Cygnet Detach Sys 8mm 30cm - [id number] Implanted:Qty: 1 on 07/03/2022 by Timmy Brunner MD at [facility] Implant Left: Vein EV3 A [employer] [id number] / / [id number] Description:CORONARY VEIN Gelatin Emb Embocube 5.02mm 50mg Red - [id number] Implanted:Qty: 1 on 07/03/2022 by Timmy Brunner MD at [facility] Implant Left: Vein [employer] [id number] / / [id number] Description:SHORT GASTRIC VE IN Coil Emb Dona 3.7/Lp .035in 14cm 12mm - [id number] Implanted:Qty: 1 on 07/03/2022 by Timmy Brunner MD at [facility] Implant Left: Vein [employer] [id number] / / [id number] Description:SHORT GASTRIC VE IN Coil Concerto Pgla Cygnet Detach Sys 12mm 30cm - [id number] Implanted:Qty: 1 on 07/03/2022 by Timmy Brunner MD at [facility] Implant Left: Vein EV3 [employer] [id number] / / [id number] Description:Short gastric ve in Coil Concerto Nyl Cygnet Detach Sys 8mm 30cm - [id number] Implanted:Qty: 1 on 07/03/2022 by Timmy Brunner MD at [facility] Implant Left: Vein EV3 A [employer] [id number] / / [id number] Description:SHORT GASTRIC VE IN Coil Concerto Nyl Cygnet Detach Sys 8mm 30cm - [id number] Implanted:Qty: 1 on 07/03/2022 by Timmy Brunner MD at [facility] Implant Left: Vein EV3 [employer] [id number] / / [id number] Description:Short gastric ve in Coil Concerto Nyl Cygnet Detach Sys 8mm 30cm - [id number] Implanted:Qty: 1 on 07/03/2022 by Timmy Brunner MD at [facility] Implant Left: Vein EV3 A [employer] [id number] / / [id number] Description:Short gastric ve in Coil Concerto Pgla Hel Detach Sys 14mm 40cm - [id number] Implanted:Qty: 1 on 07/03/2022 by Timmy Brunner MD at [facility] Implant Left: Vein EV3 A [employer] [id number] / / [id number] Description:Short gastric ve in Coil Concerto Pgla Hel Detach Sys 14mm 40cm - [id number] Implanted:Qty: 1 on 07/03/2022 by Timmy Brunner MD at [facility] Implant Left: Vein EV3 A [employer] [id number] / / [id number] Description:Short gastric ve in Coil Concerto Pgla Cygnet Detach Sys 14mm 30cm - [id number] Implanted:Qty: 1 on 07/03/2022 by Timmy Brunner MD at [facility] Implant Left: Vein EV3 [employer] [id number] / / [id number] Description:Short gastric ve in Coil Concerto Pgla Cygnet Detach Sys 14mm 30cm - [id number] Implanted:Qty: 1 on 07/03/2022 by Timmy Brunner MD at [facility] Implant Left: Vein EV3 [employer] [id number] / / [id number] Description:Short gastric ve in Coil Concerto Pgla Cygnet Detach Sys 14mm 30cm - [id number] Implanted:Qty: 1 on 07/03/2022 by Timmy Brunner MD at [facility] Implant Left: Vein EV3 [employer] [id number] / / [id number] Description:Short gastric ve in Procedures Procedure Name [...] ve Non-Reacti ve 07/09/2024 2:07 PM EST [facility] Hep A IgM Non-Reacti ve Non-Reacti ve 07/09/2024 2:07 PM EST [facility] Hep B C IgM Non-Reacti ve Non-Reacti ve 07/09/2024 2:07 PM EST [facility] Hepatitis C Ab Non-Reacti ve Non-Reacti ve 07/09/2024 2:07 PM EST [facility] Blood Line / Unknown 07/08/2024 10 :33 PM EST 07/08/2024 10:42 PM EST Narrative [facility] - 07/09/2024 2:07 PM EST Results may be falsely decreased if patient taking Biotin. Chiquis JACOME LAB BLOOD ORDERABLES Final Resu lt [facility]
[address] [place] [address], * (ABNORMAL) Lipid Panel (10/15/2023 4:16 PM EDT) Total Cholesterol 234(H) 0 - 200 mg/dL 10/16/2023 2:33 AM EDT [facility] Triglycerides 203(H) 0 - 150 mg/dL 10/16/2023 2:33 AM EDT [facility] HDL Cholesterol 41 40 - 60 mg/dL 10/16/2023 2:33 AM EDT [facility] LDL Cholesterol 156(H) 0 - 100 mg/dL 10/16/2023 2:33 AM EDT [facility] VLDL Cholesterol 37 5 - 40 mg/dL 10/16/2023 2:33 AM EDT [facility] LDL/HDL Ratio 3.72 10/16/2023 2:33 AM EDT [facility] Blood Venipuncture / Unknown 10/15/2023 4:16 PM EDT 10/15/2023 4:16 PM EDT [facility] - 10/16/2023 2:33 AM EDT [...] mg/dL Very High >189 mg/dL Enedina Mcguire VENEER GLUE SPREADER LAB BLOOD ORDERABLES Fin al Result [facility]
[address] [place] [address], from Last 3 Months or Most Recently Relevant to Health [place] [id number] [employer] Member Subscriber Plan / Payer (Ef fective 2015-Present) Name:Julien Anderson Relation to Subscriber:Self Name:Julien Anderson Payer ID:[id number] (NAIC) Type:Not on file Address: [place] [phone] Advance Directives * CPR (Attempt to Resuscitate) [...] Of Support Discussed With: Patient Care Teams Certification Technician Relationship Specialty Start Date End Date Enedina Mcguire APRN [address] [place] [address] PCP - General Nurse Practitioner 10/27/24
--- OUTSIDE RECORDS SUMMARY | 2025-05-13 10:04 | XMS_ITS | Encounter Summary ---
Author Organization [facility] Address [address] [place] [address] Care Team Providers Care Service Loss Control Consultant Name Role Phone Enedina Mcguire NP Primary Care Provider + [phone] Maureen Pantoja RN Unavailable Unavail able Chris Orosco MD Unavailable [phone] Source Comments This information has been disclosed [...] release of HIV test results or diagnoses. [id number] Health Reason for Visit * Reason Comments Results Encounter Details Date Type Department Care Team (Late st Contact Info) Description 03/19/2025 Telephone [facility] Liver Transplant at [address] [address] Maureen Pantoja, ЮЛИЯ Results Social History Tobacco Use Types Packs/Day Years Used Date Smoking Tobacco: Former Cigarettes Smokeless Tobacco: Current Alcohol Use Standard Drinks/Week Comments Yes 0 (1 standard drink = 0.6 oz pure alcohol) History of alcohol abuse, reports no use in 3 week- typically endorses use as 4 glasses of wine a days [facility] Utilities Answer Date Recorded In the past 12 months has [employer], gas, oil, or water company threatened to [...] as of this encounter Care Teams Service Loss Control Consultant Relationship Specialty Start Date End Date Enedina Mcguire NP [address] [place] [address] PCP - General Internal Medicine 10/05/24 Maureen Pantoja, ЮЛИЯ Txp Post Coordinator Transplant Hepatology 10/28/24 Chris Orosco MD [address] [place] [address] [address] [facility] [place] [address] Consulting Physician Transplant Hepatology 02/26/25 documented as of this encounter
--- OUTSIDE RECORDS SUMMARY | 2025-05-13 10:04 | XMS_ITS | Encounter Summary ---
Author Organization [employer] ([place], [place], [place], [place], [place]) Address [address] [place] [address] Care Team Providers Care Silk Finisher Name Role Phone Unavailable Primary Care Provider Carmen jimenez Encounter Details Date Type Department Care Team (Late st Contact Info) Description 06/03/2018 Transcribed Document [facility] Family Medicine [facility] [place] [address] ProviderEbenezer MD [address] [place] [address] Social History Tobacco Use [...] - Historical ProviderMD - 06/03/2018 3:04 PM MOLD MAKING PLASTICS SHEETS SUPERVISOR [address] [place] [address] Patient Information Name: JULIEN ZELAYA [...] [address] [place] [address] Landis+Gyr (1) Within 2 to 3 days Patient [...] off of the skin. General Instructions??? Take nivy-rou-zqdcgau and prescription medicines only as told by [...] 04/30/2006 Document Revised: 09/29/2016 Document Reviewed: 04/26/2015 [employer] Interactive Patient Education ? 2017 [employer] Allergies: No Known Medication Allergies Medication [...] Assistance with quitting is available by contacting 8-764-CJJY-NOW. This is a free resource providing counseling, [...] Electronic Communications Privacy Act 18 U.S.C. ???Sections 2776-2022,?? and contain information intended for the specified [...] sure to sign up for the My [facility] patient portal, which gives you 04/12 access to your medical information ??? including these discharge instructions ??? using your computer, smartphone, or tablet. Just go to BOARDZ to get started. Questions? Call . Acknowledgment [...]
--- OUTSIDE RECORDS SUMMARY | 2025-05-13 10:04 | XMS_ITS ---
Author Organization [facility] Address [facility] [place] [address] Care Team Providers Care Operator Assistant I Cementing Name Role Phone Enedina Mcguire NP Primary Care Provider + [phone] Maureen Pantoja RN Unavailable Unavail able Chris Orosco MD Unavailable [phone] Transplant Episode Kidney Recipient [facility], [place]) - [facility] Organ Received: Left Kidney Transplanted on 10/27/2024 Marked as Active Follow-up on 10/27/2024 Kidney CoordinatorJosr Weber RN Phone: N/A Fax: N/A Email: N/A [place] Organ Diagnosis Organ Primary Contributory Kidney Hepatorenal [...] N/A N/A Flaquito Mayen MD Txp Surgeon [phone] N/A Bruno Gonzalez MD Txp Email Production Specialist [phone] N/A Yovanny Curran MD Referring Physician [phone] N/A Events Post-Transplant Pre-Transplant Admitted: 10/25/2024 Referred: 10/07/2024 Transplanted: 10/27/2024 Evaluation began: Discharged: 11/02/2024 Committee: 10/20/2024 Center waitlisted: 5
--- OUTSIDE RECORDS SUMMARY | 2025-05-13 10:04 | XMS_ITS | Encounter Summary ---
Author Organization [facility] Address [address] [place] [address] Care Team Providers Care Outboard Motor Inspector Name Role Phone Enedina Mcguire APRN Primary Care Provider + Reason for Visit * Reason Comments Med Refill Encounter Details Date Type Department Care Team (Late st Contact Info) Description 07/20/2022 Refill [facility] GASTROENTEROLOGY [address] [place] [phone] Lj Tapia APRN [address] [place] [address] Secondary esophageal varices without bleeding Social History [...] or training? Not on file Preferred Language Guamanian 07/03/2022 Sex and Gender Information Value Date [...] [facility] PAIN MANAGEMENT [address] [facility] [address] [place] [address] Vazquez Christie PA-C [address] [facility] [address] [place] [address] 06/08/2025 2:30 PM EST Office Visit [facility] INTERNAL MEDICINE [address] [place] [phone] Enedina Mcguire APRN [address] [place], [place] [phone] documented as of this encounter Visit Diagnoses Diagnosis Secondary esophageal varices without bleeding documented in this encounter Additional Health Concerns Infection Onset Date Last Indicated Resolved Time COVID Screen (preop/placement) 07/28/2022 07/28/2022 07/29/2022 12:00 AM EDT documented as of this encounter Care Teams Outboard Motor Inspector Relationship Specialty Start Date End Date Enedina Mcguire APRN [address] [place] [id number] PCP - General Nurse Practitioner 10/27/24 documented as of this encounter
--- OUTSIDE RECORDS SUMMARY | 2025-05-13 10:04 | XMS_ITS | Encounter Summary ---
Author Organization [employer] ([place], [place], [place], [place], [place]) Address [address] [place] [address] Care Team Providers Care Supervisor Assembly Room Name Role Phone Unavailable Primary Care Provider Unavailabl e Encounter Details Date Type Department Care Team (Late st Contact Info) Description 06/03/2018 Transcribed Document [facility] Family Medicine [address] [place] [address] ProviderEbenezer MD [address] [place], [place] [id number] Social History Tobacco Use Types Packs/Day Years [...] - Historical ProviderMD - 06/03/2018 12:08 PM PIZZA BAKER ED Assessment Entered On: 06/03/2018 14:51 EST Performed On: 06/03/2018 13:50 EST by Lizeth Almeida, CONSTRUCTION SPECIALIST Quick Look Assessment Level of Consciousness : Alert Affect/Behavior : Calm, Cooperative Orientation : Oriented x 4 Skin Color : Other: [place] Skin Temperature : Warm Skin Description : Dry Lizeth Almeida, RN - 06/03/2018 14:50 EST ED General-Functional Assess Communication Barrier : None Primary Language : Romanian Any Spiritual/Cultural Needs or Requests : No [...] Electronically signed by Luis Eduardo Ochoa [employer] Wafer Breaker Cerner at 08/29/2022 6:34 PM CDT documented in this encounter Plan of Treatment Not on file documented as of this encounter Visit Diagnoses Not on filedocumented in this encounter
--- OUTSIDE RECORDS SUMMARY | 2025-05-13 10:04 | XMS_ITS | Encounter Summary ---
Author Organization [facility] Address [address] [place] [address] Care Team Providers Care Nicker Name Role Phone Enedina Mcguire NP Primary Care Provider + [phone] Maureen Pantoja RN Unavailable Unavail able Chris Orosco MD Unavailable [phone] Source Comments This information has been disclosed [...] release of HIV test results or diagnoses. [id number] Health Encounter Details Date Type Department Care Team (Late st Contact Info) Description 03/16/2025 Chart Note [facility] Liver Transplant at [place] [address] [facility] [address] [place] [address] Marlene Ro MA Magnesium Level from 03/13 Social History Tobacco Use Types Packs/Day Years Used Date Smoking Tobacco: Former Cigarettes Smokeless Tobacco: Current Alcohol Use Standard Drinks/Week Comments Yes 0 (1 standard drink = 0.6 oz pure alcohol) History of alcohol abuse, reports no use in 3 week- typically endorses use as 4 glasses of wine a days [facility] Utilities Answer Date Recorded In the past 12 months has [employer], gas, oil, or water company threatened [...] documented as of this encounter Care Teams Nicker Relationship Specialty Start Date End Date Enedina Mcguire NP [address] [place] [address] PCP - General Internal Medicine 10/05/24 Maureen Pantoja, ЮЛИЯ Txp Post Coordinator Transplant Hepatology 10/28/24 Chris Orosco MD [address] [place] [address] [address] [place] [address] Consulting Physician Transplant Hepatology 02/26/25 documented as of this encounter
--- OUTSIDE RECORDS SUMMARY | 2025-05-13 10:04 | XMS_ITS | Encounter Summary ---
Author Organization [facility] Address [address] [place] [address] Care Team Providers Care Gunite Nozzle Operator Name Role Phone Enedina Mcguire NP Primary Care Provider + [phone] Maureen Pantoja RN Unavailable Unavail able Chris Orosco MD Unavailable [phone] Source Comments This information has been disclosed [...] release of HIV test results or diagnoses. [id number] Health Reason for Visit * Reason Comments Critical Lab Results Encounter Details Date Type Department Care Team (Late st Contact Info) Description 03/13/2025 Telephone [facility] Liver Transplant at [address] [address] Mitzy Gill MA Critical Lab Results Social History Tobacco Use Types Packs/Day Years Used Date Smoking Tobacco: Former Cigarettes Smokeless Tobacco: Current Alcohol Use Standard Drinks/Week Comments Yes 0 (1 standard drink = 0.6 oz pure alcohol) History of alcohol abuse, reports no use in 3 week- typically endorses use as 4 glasses of wine a days [facility] Utilities Answer Date Recorded In the past 12 months has [employer] electric, gas, oil, or water company threatened [...] documented as of this encounter Care Teams Gunite Nozzle Operator Relationship Specialty Start Date End Date Enedina Mcguire NP [address] [place] [address] PCP - General Internal Medicine 10/05/24 Pantoja, Maureen Leeanna, RN Txp Post Coordinator Transplant Hepatology 10/28/24 Chris Orosco MD [address] [facility] [address] [place] [address] Consulting Physician Transplant Hepatology 02/26/25 documented as of this encounter
--- OUTSIDE RECORDS SUMMARY | 2025-05-13 10:04 | XMS_ITS | Clinical Summary ---
Author Organization [employer] ([place], [place], [place], [place]) Address [address] [place] [address] Care Team Providers Care Physical Therapist Aide Name Role Phone Unavailable Primary Care [...]
--- OUTSIDE RECORDS SUMMARY | 2025-05-13 10:04 | XMS_ITS | Encounter Summary ---
Author Organization [employer] ([place], [place], [place], [place]) Address [address] [place] [address] Care Team Providers Care Naval Aircrewman Helicopter Name Role Phone Unavailable Primary Care Provider Unavailabl e Encounter Details Date Type Department Care Team (Late st Contact Info) Description 06/03/2018 Transcribed Document [facility] Family Medicine [facility] [place] [address] ProviderEbenezer MD [address] [place], [place] [id number] Social History Tobacco Use Types Packs/Day Years [...] - Historical ProviderMD - 06/03/2018 2:24 PM TITLE CURATOR Electronically signed by Gabriela [facility] Conversion Hog Operator Cerner at 08/29/2022 6:41 PM CDT documented in this encounter Plan of Treatment Not on file documented as of this encounter Visit Diagnoses Not on filedocumented in this encounter
--- OUTSIDE RECORDS SUMMARY | 2025-05-13 10:04 | XMS_ITS | Encounter Summary ---
Author Organization [facility] Address [address] [place] [address] Care Team Providers Care Vocational Teacher Name Role Phone Enedina Mcguire APRN Primary Care Provider + Reason for Visit * Reason Onset Date Comments Med Refill 04/18/2025 Encounter Details Date Type Department Care Team ([facility] st Contact Info) Description 04/18/2025 Refill [facility] INTERNAL MEDICINE [address] [place] [address] Enedina Mcguire APRN [address] [place] [address] Low testosterone in male Social History Tobacco Use Types Packs/Day Years Used Date Smoking Tobacco: Former Cigarettes 4 20 Passive Smoke Exposure: Past Smokeless Tobacco: Current Comments:MARIJUANA USE ABOUT 2X PER WEEK - reports no use 08-05-2024 Alcohol Use Standard Drinks/Week Comments Not Currently 0 (1 standard drink = 0.6 oz pure alcohol) 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 Utilities Answer Date Recorded In the past 12 months has [employer], gas, oil, or water [employer] threatened to shut off services in your [...] Score 0 10/02/2022 [facility] - [facility] Stress Questionnaire Answer [...] GED or equivalent No 07/09/2024 Preferred Language Syriac 07/09/2024 PHQ-2 Answer Date Recorded Patient Health [...] Description 05/21/2025 12:30 PM EST Office Visit [facility] PAIN MANAGEMENT [address] [address] Vazquez Christie PA-C [address] [place] [address] [place] [address] 06/08/2025 2:30 PM EST Office Visit [facility] INTERNAL MEDICINE [address] [place] [phone] Enedina Mcguire APRN [address] [place] [phone] documented as of this encounter Visit Diagnoses Diagnosis Low testosterone in male documented in this encounter Additional Health Concerns Assessment Noted Time PHQ-2 Depression Total Score: 1 12/31/19 24 3:25 PM EDT documented as of this encounter Care Teams Vocational Teacher Relationship Specialty Start Date End Date Enedina Mcguire APRN [address] [place] [address] PCP - General Nurse Practitioner 10/27/24 documented as of this encounter
--- OUTSIDE RECORDS SUMMARY | 2025-05-13 10:04 | XMS_ITS | Encounter Summary ---
Author Organization [facility] Address [address] [place] [address] Care Team Providers Care Mixing Tumbler Operator Name Role Phone Enedina Mcguire NP Primary Care Provider + [phone] Maureen Pantoja RN Unavailable Unavail able Chris Orosco MD Unavailable [phone] Source Comments This information has been disclosed [...] release of HIV test results or diagnoses. [id number] Health Encounter Details Date Type Department Care Team (Late st Contact Info) Description 03/16/2025 Telephone [facility] Kidney Transplant at [address] [address] Lizeth Walden, RN Social History Tobacco Use Types Packs/Day Years Used Date Smoking Tobacco: Former Cigarettes Smokeless Tobacco: Current Alcohol Use Standard Drinks/Week Comments Yes 0 (1 standard drink = 0.6 oz pure alcohol) History of alcohol abuse, reports no use in 3 week- typically endorses use as 4 glasses of wine a days [facility] Utilities Answer Date Recorded In the past 12 months has [employer], gas, oil, or water [employer] threatened to shut off services in your [...] documented as of this encounter Care Teams Mixing Tumbler Operator Relationship Specialty Start Date End Date Enedina Mcguire NP [address] [place] [address] PCP - General Internal Medicine 10/05/24 Maureen Pantoja, ЮЛИЯ Txp Post Coordinator Transplant Hepatology 10/28/24 Chris Orosco MD [address] [place] [address] [address] [place] [address] Consulting Physician Transplant Hepatology 02/26/25 documented as of this encounter
--- OUTSIDE RECORDS SUMMARY | 2025-05-13 10:04 | XMS_ITS | Encounter Summary ---
Author Organization [employer] ([place], [place], [place], [place]) Address [address] [place] [address] Care Team Providers Care Processing Operator Name Role Phone Unavailable Primary Care Provider Unavaillia e Encounter Details Date Type Department Care Team (Late st Contact Info) Description 06/03/2018 Transcribed Document [facility] [place] Medicine [facility] [place] [address] ProviderEbenezer MD [address] [place] [address] Social History Tobacco Use Types [...] - Historical ProviderMD - 06/03/2018 3:04 PM BILL DISTRIBUTOR [place] [address] [facility] [place] [address] PERSON INFORMATION Name JULIEN ZELAYA Age 33 Years 1985 Sex Male Language Albanian PCP SALLY EVERETT (REF) T Marital Status Single Med Service Emergency Medicine Acct# Arrival 06/03/2018 12:08:00 Visit Reason Finger laceration; CUT FINGERS Acuity 3 - Urgent LOS 000 02:56 Depart Date: 06/03/18 03:04 PM Address: [facility] [address] Comment: PROVIDER INFORMATION Provider Role Assigned Unassigned Lizeth Almeida, POST GRADUATE INTERNSHIP Nurse 06/03/2018 12:39:09 DOMINIQUE BREWER PA-C ED [...] PURI # [address] [place], [employer] [phone] [employer] (1Downstream Within 2 to 3 days Comment: documented in this encounter Plan of Treatment Not on file documented as of this encounter Visit Diagnoses Not on filedocumented in this encounter
--- OUTSIDE RECORDS SUMMARY | 2025-05-13 10:04 | XMS_ITS | Encounter Summary ---
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
--- OUTSIDE RECORDS SUMMARY | 2025-05-13 10:04 | XMS_ITS | Clinical Summary ---
Author Organization Healthcare Address [address] [place] [address] Care Team Providers Care Sales And Marketing Administrator Name Role Phone Lj Tapia RAMBO Unavailable [phone] Enedina Mcguire APRN Primary Care Provider + [...] answer 07/14/2024 How often do you attend [facility] or [facility] services? Patient unable to answer 07/14/2024 Do [...] Recorded Patient Health Questionnaire-2 Score 2 09/29/2024 [facility] - [...] drink first t deborah in the morning (EYE-SPOOLER RUBBER STRAND) to steady your nerves or to get rid of a hangover? 0 07/19/2024 CAGE Questionnaire Score 2 025 Utilities Answer Date Recorded In the past 12 months has th [employer], gas, oil, or water company threatened [...] 2 - 13+ 2-dose series) 10/11/2010 09/13/2010 [id number] Vaccine (4 - 2024- season) 2025 03/17/2021, [...] this topic Medical Devices Implanted Type Area Certified Fraud Examiner Device Identifier Shelf Expiration Date Model / Serial / Lot Concerto [place] Coil-07/03/2022 Implanted:06/15 by Timmy Brunner MD (Quantity not on file) Coil Abdomen Description:Multiple Coil Co ncerto Pgla [place] Detach COILS implanted on 07/03/2022 by Timmy Brunner MD at [facility]--info can be found in Care Everywhere for [facility] as of 11/15/23 Dona Coil-07/03/2022 Implanted:06/15 by Timmy Brunner MD (Quantity not on file) Coil Abdomen [employer] Description:Coil Emb Dona 3.7/Implanted: Qty: 1 on 07/03/2022 by Timmy Brunner MD at [facility] Plate Plate N/A: Neck Plug Vasc Anton Emb Amplatzer Implanted:06/15 by Timmy Brunner MD (Quantity not on file) Plug Other Vein / / [id number] Description:Plug Vasc Anton Em b Ampltz .027 [id number] - [id number] Implanted: Qty: 1 on 07/03/2022 by Timmy Brunner MD at [facility] Stent Gastro Panc 5fr 5cm - [id number] Implanted:Qty: 1 on 11/20/2023 by Devang Mcghee, ЮЛИЯ at [facility] Pancreas [employer]-[id number] 08/13/2026 [id number] / / [id number] Procedures Procedure Name Priority Date/Time Associated Diagnosis [...] ORDERA BLES Final Result Performing Organization Address City/[facility]/ZIP Co de Phone Number HEALTHCARE [facility] [address] [place] [address] * Hepatitis C Antibody (07/14/2024 4:31 PM EST) [facility] Signature Hepatitis C Antibody Negative Negative 07/14/2024 5:27 PM EST [facility] Blood Venous blood specimen / Unknown Venipuncture / Unknown 07/14/2024 4:31 PM EST 07/14/2024 4:54 PM EST Laureano Salinas APRN, [facility] BLOOD ORDERA BLES Final Result Performing Organization Address City/[facility] Co de Phone Number HEALTHCARE LAB [address] [place] [address] from Last 3 Months or Most Recently Relevant to Health Maintenance Insurance [facility] Advance Directives * Full Code (Latest Code Status on File) Date Activated Date Inactivated Comments 07/11/2024 11:04 PM 07/23/2024 6:27 PM Question Answer Comments Patient has decision-making capacity? Yes * Full Code Date Activated Date Inactivated Comments 11/14/2023 10:15 PM 11/27/2023 9:08 PM Question Answer Comments Patient has decision-making capacity? Yes Care Teams Sales And Marketing Administrator Relationship Specialty Start Date End Date Enedina Mcguire APRN [address] [place] [address] PCP - General 12/04/22 Lj Tapia APRN [address] Referring Physician Gastroenterology 07/18/22
--- OUTSIDE RECORDS SUMMARY | 2025-05-13 10:04 | XMS_ITS | Encounter Summary ---
Author Organization [facility] Address [address] [place] [address] Care Team Providers Care Extrusion Former Name Role Phone Enedina Mcguire NP Primary Care Provider + [phone] Alicia Rankin RN Unavailable Unavail able Chris Orosco MD Unavailable [phone] Source Comments This information has been disclosed [...] release of HIV test results or diagnoses. [id number] Health Reason for Visit * Reason Comments Results Medication Dose Change Encounter Details Date Type Department Care Team (Late st Contact Info) Description 03/10/2025 Telephone [facility] Liver Transplant at [address] [address] Alicia Rankin, ЮЛИЯ Results; Medication [...] Recorded In the past 12 months has [email or web address] electric, gas, oil, or water company threatened [...] Weekly labs. Dose updated. Patient notified via [employer]. * Alicia Rankin RN - 03/16/2025 9:47 [...] liver transplant ([facility]) Hypomagnesemia Disorders of magnesium metabolism Kidney transplant recipient Hypertension, unspecified type Gastroesophageal reflux disease, unspecified whether esophagitis present documented in this encounter Additional Health Concerns Infection Onset Date Last Indicated Resolved Time C. difficile 01/28/2025 01/28/2025 04/28/2025 9:36 PM EST Assessment Noted Time PHQ-9 Depression Total Score: 2 12/11/19 25 9:00 AM EDT documented as of this encounter Care Teams Extrusion Former Relationship Specialty Start Date End Date Enedina Mcguire NP [address] [place] [address] PCP - General Internal Medicine 10/05/24 Alicia Rankin RN Txp Post Coordinator Transplant Hepatology 10/28/24 Chris Orosco MD [address] [place] [address] [address] [place] [address] Consulting Physician Transplant Hepatology 02/26/25 documented as of this encounter
--- OUTSIDE RECORDS SUMMARY | 2025-05-13 10:04 | XMS_ITS | Encounter Summary ---
Author Organization Address [address] [place] [address] Care Team Providers Care Laborer Beam House Name Role Phone Enedina Mcguire NP Primary Care Provider + [phone] Maureen Pantoja RN Unavailable Unavail able Chris Orosco MD Unavailable [phone] Source Comments This information has been disclosed [...] release of HIV test results or diagnoses. [id number] Encounter Details Date Type Department Care Team (Late st Contact Info) Description 03/04/2025 Chart Note [facility] Liver Transplant at [address] [address] Marlene Ro MA 03/04 Labs entered from [facility] Social History Tobacco Use Types [...] Recorded In the past 12 months has [employer], gas, oil, or water company threatened [...] were not included. 03/04 Labs entered from [facility] documented in this encounter Plan [...] Phosphatidylethanol (PEth) Positive 587 Whole Blood Result [facility] LAB BLOOD ORDERABLES Denisse l Result * Tacrolimus level (03/04/2025 11:29 AM EDT) Tacrolimus Lvl 14.6 6 - 15 ng/mL Whole Blood Result [facility] LAB BLOOD ORDERABLES Denisse l Result * Urine culture (03/04/2025 11:29 AM EDT) Pathologist [facility] Urine Culture, Comprehensive no growth after 48 hours URINE SPECIMEN / Unknown Result [facility] MICROBIOLOGY - GENERAL OR DERABLES Final Result * (ABNORMAL) Magnesium (03/04/2025 11:29 AM EDT) Pathologist [facility] Magnesium 1.4(A) 1.6 - 2.4 mg/dL Plasma Narrative Resulting Agency Comment [facility] Result [facility] LAB BLOOD ORDERABLES Denisse l Result * (ABNORMAL) Renal Function Panel w/o EGFR (03/04/2025 11:29 AM EDT) Glucose 120 BUN 18 CO2 27(A) 13 - 22 mmol/L Creatinine 1.20 Potassium 3.7 Sodium 138 Chloride 98 Phosphorus 4.4 2.5 - 4.9 mg/dL Calcium 9.4 EGFR 67 mg/dL Albumin 4.8 3.5 - 5.0 g/dL Blood Narrative Resulting Agency Comment [facility] Result [facility] LAB BLOOD ORDERABLES Denisse l Result * Creatinine, urine, random (03/04/2025 11:29 AM EDT) Creatinine, Urine 111 Urine Narrative Resulting Agency Comment [facility] Provider URINE ORDERABLES Final Re sult * (ABNORMAL) Urinalysis w/Rfl to Microscopic (03/04/2025 11:29 AM EDT) Pathologist [facility] Glucose, UA Negative Negative Ketones, UA Negative Negative Blood, UA Negative Negative Bilirubin, UA Negative Negative Urobilinogen, UA Normal Normal Protein, UA Trace(A) Negative Nitrite, UA Negative Negative pH, UA 5.5 4.5 - 8.0 Specific [place], UA 1.020 1.005 - 1.030 Clarity, UA Clear Clear Color, UA Yellow Light Yellow, Yellow Urine Narrative Resulting Agency Comment [facility] Result [facility] Provider URINE ORDERABLES Final Re sult * Vitamin D 25 hydroxy (03/04/2025 11:29 AM EDT) Pathologist [facility] Vit D, 25-Hydroxy 38.4 Serum Narrative Resulting Agency Comment [facility] Provider LAB BLOOD ORDERABLES Denisse l Result * (ABNORMAL) CBC and differential (03/04/2025 11:29 AM EDT) Pathologist [facility] Hemoglobin 13.0(A) 13.5 - 17.5 g/dL Hematocrit [...] 7.7 10^3/mL Blood Narrative Resulting Agency Comment [facility] Provider LAB BLOOD ORDERABLES Denisse l Result * Urine Protein, Tot, Random (w/o Creat) (03/04/2025 11:29 AM EDT) Total Protein, Ur 27.0 Urine Narrative Resulting Agency Comment [facility] Provider URINE ORDERABLES Final Re sult * Hepatic Function Panel (03/04/2025 11:29 AM EDT) Bilirubin, Direct 0.2 Bilirubin, Indirect 0.7 Alkaline Phosphatase 155 ALT 39 AST 47 Total Bilirubin 0.9 Total Protein 7.5 Plasma Narrative Resulting Agency Comment [facility] Result [facility] Provider LAB BLOOD ORDERABLES Denisse l Result documented in this encounter Visit Diagnoses Not on filedocumented in this encounter Additional Health Concerns Infection Onset Date Last Indicated Resolved Time C. difficile 01/28/2025 01/28/2025 04/28/2025 9:36 PM EST Assessment Noted Time PHQ-9 Depression Total Score: 2 12/11/19 25 9:00 AM EDT documented as of this encounter Care Teams Laborer Beam House Relationship Specialty Start Date End Date Enedina Mcguire NP [address] [place] [address] PCP - General Internal Medicine 10/05/24 Maureen Pantoja, ЮЛИЯ Txp Post Coordinator Transplant Hepatology 10/28/24 Chris Orosco MD [address] [place] [address] Liver [place] [address] Consulting Physician Transplant Hepatology 02/26/25 documented as of this encounter
--- OUTSIDE RECORDS SUMMARY | 2025-05-13 10:04 | XMS_ITS | Encounter Summary ---
Author Organization [facility] Address [address] [place] [address] Care Team Providers Care Gill Box Tender Name Role Phone Enedina Mcguire NP Primary Care Provider + [phone] Maureen Pantoja RN Unavailable Unavail able Chris Orosco MD Unavailable [phone] Source Comments This information has been disclosed [...] release of HIV test results or diagnoses. [id number] Encounter Details Date Type Department Care Team (Late st Contact Info) Description 03/10/2025 Chart Note [facility] Liver Transplant at [address] [address] Marlene Ro MA 03/10 Labs entered from [facility] Social History Tobacco Use Types [...] Recorded In the past 12 months has [employer] electric, gas, oil, or water company threatened [...] included. 03/10 Labs entered from [facility] documented [...] Phosphatidylethanol (PEth) Positive 413 Whole Blood Result [facility] Provider MD LAB BLOOD ORDERABLES Denisse l Result * Tacrolimus level (03/10/2025 9:29 AM EDT) Tacrolimus Lvl 14.5 6 - 15 ng/mL Whole Blood Result [facility] MD LAB BLOOD ORDERABLES Denisse l Result * Cytomegalovirus DNA, Quant, RT PCR (03/10/2025 9:29 AM EDT) CMV Quant DNA PCR (Plasma) Negative Plasma Result [facility] MD LAB BLOOD ORDERABLES Denisse l Result * Creatinine, urine, random (03/10/2025 9:29 AM EDT) Creatinine, Urine 94 Urine Narrative Resulting Agency Comment [facility] Lab Result [facility] Provider URINE ORDERABLES Final Re sult * Urinalysis w/Rfl to Microscopic (03/10/2025 9:29 AM EDT) Pathologist [facility] Glucose, UA Negative Negative Ketones, UA Negative Negative Blood, UA Negative Negative Bilirubin, UA Negative Negative Urobilinogen, UA Normal Normal Protein, UA Negative Negative Nitrite, UA Negative Negative pH, UA 5.5 4.5 - 8.0 Specific [place], UA 1.015 1.005 - 1.030 Clarity, UA Clear Clear Color, UA Yellow Light Yellow, Yellow Urine Narrative Resulting Agency Comment [facility] Lab Result [facility] Provider URINE ORDERABLES Final Re sult * Urine Protein, Tot, Random (w/o Creat) (03/10/2025 9:29 AM EDT) Total Protein, Ur 21.0 Urine Narrative Resulting Agency Comment [facility] Lab [facility] Provider MD URINE ORDERABLES Final Re sult * (ABNORMAL) Magnesium (03/10/2025 9:29 AM EDT) Pathologist [facility] Magnesium 0.9(A) 1.6 - 2.4 mg/dL Plasma Narrative Resulting Agency Comment [facility] Lab Result [facility] Provider MD LAB BLOOD ORDERABLES Denisse l Result * Hepatic Function Panel (03/10/2025 9:29 AM EDT) Pathologist [facility] Bilirubin, Direct 0.2 Bilirubin, Indirect 0.5 Alkaline Phosphatase 102 ALT 28 AST 26 Total Bilirubin 0.7 Total Protein 6.7 Plasma Narrative Resulting Agency Comment [facility] Lab Result [facility] LAB [...] Narrative Resulting Agency Comment [facility] Lab Result [facility] LAB [...] 5.6 10^3/mL Blood Narrative Resulting Agency Comment [facility] Lab us Historical Provider LAB BLOOD ORDERABLES Denisse l Result documented in this encounter Visit Diagnoses Not on filedocumented in this encounter Additional Health Concerns Infection Onset Date Last Indicated Resolved Time C. difficile 01/28/2025 01/28/2025 04/28/2025 9:36 PM EST Assessment Noted Time PHQ-9 Depression Total Score: 2 12/11/19 9:00 AM EDT documented as of this encounter Care Teams Gill Box Tender Relationship Specialty Start Date End Date Enedina Mcguire NP [address] [place] [address] PCP - General Internal Medicine 10/05/24 Maureen Pantoja RN Txp Post Coordinator Transplant Hepatology 10/28/24 Chris Orosco MD [address] [place] [address] [address] [place] [address] Consulting Physician Transplant Hepatology 02/26/25 documented as of this encounter
--- OUTSIDE RECORDS SUMMARY | 2025-05-13 10:04 | XMS_ITS | Encounter Summary ---
Author Organization [facility] Address [address] [place] [address] Care Team Providers Care Dissolver Operator Name Role Phone Enedina Mcguire NP Primary Care Provider + [phone] Maureen Pantoja RN Unavailable Unavail able Chris Orosco MD Unavailable [phone] Source Comments This information has been disclosed [...] release of HIV test results or diagnoses. [id number] Encounter Details Date Type Department Care Team (Late st Contact Info) Description 03/16/2025 Telephone [facility] Liver Transplant at [address] [address] Mitzy Gill MA Social History Tobacco Use Types Packs/Day Years Used Date Smoking Tobacco: Former Cigarettes Smokeless Tobacco: Current Alcohol Use Standard Drinks/Week Comments Yes 0 (1 standard drink = 0.6 oz pure alcohol) History of alcohol abuse, reports no use in 3 week- typically endorses use as 4 glasses of wine a days [facility] Utilities Answer Date Recorded In the past 12 months has [email or web address] electric, gas, oil, or water company threatened [...] documented as of this encounter Care Teams Dissolver Operator Relationship Specialty Start Date End Date Enedina Mcguire NP [address] [place] [address] PCP - General Internal Medicine 10/05/24 Maureen Pantoja, ЮЛИЯ Txp Post Coordinator Transplant Hepatology 10/28/24 Chris Orosco MD [address] [place] [address] [place] [address] Consulting Physician Transplant Hepatology 02/26/25 documented as of this encounter
--- OUTSIDE RECORDS SUMMARY | 2025-05-13 10:04 | XMS_ITS | Encounter Summary ---
Author Organization [facility] Address [address] [place] [address] Care Team Providers Care Outsole Paraffiner Name Role Phone Enedina Mcguire APRN Primary Care Provider + Reason for Visit * Reason Onset Date Comments Med Refill 04/16/2025 Encounter Details Date Type Department Care Team ([facility] st Contact Info) Description 04/15/[address] [facility] [address] [place] [address] Enedina Mcguire APRN [address] [place] [address] Low testosterone in male Social [...] Recorded In the past 12 months has [employer] gas, oil, or water [employer] threatened to shut off services in your [...] 0 10/02/2022 [facility] [...] [facility] [address] [facility] [address] [place] [address] Vazquez Christie PA-C [address] [facility] [address] [place] [address] 06/08/2025 2:30 PM EST Office Visit [facility] [address] [place] [phone] Enedina Mcguire APRN [address] [place] [address] documented as of this encounter Visit Diagnoses Diagnosis Low testosterone in male documented in this encounter Additional Health Concerns Assessment Noted Time PHQ-2 Depression Total Score: 1 12/31/19 24 3:25 PM EDT documented as of this encounter Care Teams Outsole Paraffiner Relationship Specialty Start Date End Date Enedina Mcguire APRN [address] [place] [address] PCP - General Nurse Practitioner 10/27/24 documented as of this encounter
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
--- OUTSIDE RECORDS SUMMARY | 2025-05-13 10:04 | XMS_ITS | Clinical Summary ---
Author Organization [facility] Address [address] [place] [address] Care Team Providers Care Carburetor Repairer Name Role Phone Enedina Mcguire NP Primary Care Provider + [phone] Maureen Pantoja RN Unavailable Unavail able Chris Orosco MD Unavailable [phone] Source Comments This information has been disclosed [...] therelease of HIV test results or diagnoses. [id number] Allergies Active [...] Encounter for therapeutic drug monitoring,S/P liver transplant ([facility]),Hypomagne semia,Kidney transplant recipient,Hypertens ion, unspecified type,Gastroesophage [...] ncounter for therapeutic drug monitoring,S/P liver transplant ([facility]),Hypomagne semia,Kidney transplant recipient,Hypertens ion, unspecified type,Gastroesophage al reflux disease, unspecified whether esophagitis present Take 1 tablet by mouth twice daily 60 tablet 5 025 Active testosterone cypionate 200 mg/mL Kit Inject into the muscle. 021 Active NIFEdipine (PROCARDIA-XL) 30 MG (OSM) 24 hr tabletIndications:E ncounter for therapeutic drug monitoring,S/P liver transplant ([facility]),Hypomagne semia,Kidney transplant recipient,Hypertens ion, unspecified type,Gastroesophage al reflux disease, unspecified whether esophagitis present Take 1 tablet by mouth once daily 30 tablet 025 Active magnesium chloride (SLOW-MAG) 71.5 mg TbEC Take 2 tablets (143 mg total) by mouth 3 times a day. Patient purchases OTC. Patient reporting some days only taking BID. Active mycophenolate (CELLCEPT) 250 mg capsuleIndications: Kidney transplant recipient,Liver transplant recipient ([facility]),Encounter for monitoring tacrolimus therapy,Immunosuppr essive management encounter following liver transplant ([facility]),Encounter for therapeutic drug monitoring,S/P liver transplant ([facility]) Take 2 capsules (500 mg total) by mouth 2 times a day. 60 capsule 5 04/22/20 25 10:24 AM EST Active topiramate (TOPAMAX) 50 MG tabletIndications:a lcoholism Take 1 tablet (50 mg total) by mouth daily. Indications: alcoholism 30 tablet 11 Active tacrolimus (PROGRAF) 1 MG capsuleIndications: Prevention of Kidney Transplant Rejection,Preventio n of Liver Transplant Rejection Take 3 capsules (3 mg total) by mouth 2 times a day. Indications: Prevention of Kidney Transplant Rejection, Prevention of Liver Transplant Rejection 180 capsule 5 Active naltrexone (DEPADE) 50 mg tablet Take 1 tablet (50 mg total) by mouth daily. 30 tablet 5 025 2024 Discontinued mycophenolate (CELLCEPT) 250 mg capsuleIndications: Encounter for therapeutic drug monitoring,S/P liver transplant ([facility]),Hypomagne semia,Kidney transplant recipient,Hypertens ion, unspecified type,Gastroesophage al reflux disease, unspecified whether esophagitis present Take 1 capsule (250 mg total) by mouth 2 times a day. 60 capsule 5 04/08/20 25 3:41 PM EST 025 2024 Discontinued(R efill / Reorder) predniSONE (DELTASONE) 5 MG tablet Take 1 tablet (5 mg total) by mouth daily. 025 2024 Discontinued tacrolimus (PROGRAF) 1 MG capsuleIndications: Prevention of Kidney Transplant Rejection,Preventio n of Liver Transplant Rejection Take 5 capsules (5 mg total) by mouth 2 times a day. Indications: Prevention of Kidney Transplant Rejection, Prevention of Liver Transplant Rejection 300 capsule 5 04/15/20 25 4:32 PM EST 025 2024 Discontinued(R efill / Reorder) tacrolimus (PROGRAF) 1 MG capsuleIndications: Prevention of Kidney Transplant Rejection,Preventio n of Liver Transplant Rejection Take 4 capsules (4 mg total) by mouth 2 times a day. Indications: Prevention of Kidney Transplant Rejection, Prevention of Liver Transplant Rejection 300 capsule 5 025 2024 Discontinued(R efill / [...] with SBP, s/p CTX x5d; will cont mcc ppx with Cipro 500mg daily - HE: [...] Encounters Date Type Department Care Team Description 05/12/2025 Telephone [facility] Liver Transplant at [address] [place] [phone] Mitzy Schneider MA 05/08/2025 Chart Note [facility] Liver Transplant at [address] [place] [phone] Marlene Ro MA 05/06 Labs entered from [facility] 04/30/2025 Telephone [facility] Liver Transplant at [address] [place] [phone] Maureen Pantoja, ЮЛИЯ Results; Medication Dose Change 04/23/2025 Chart Note [facility] Liver Transplant at [address] [place] [phone] Marlene Ro MA 04/22 Labs entered from [facility] 04/20/2025 Telephone [facility] Liver Transplant at [address] [place] [address] Maureen Pantoja, RN Results 04/16/2025 10:51 AM EST - 04/16/2025 11:59 PM EST Hospital Encounter [facility] [address] [place] [address] Chris Orosco MD History of systemic steroid therapy; Liver transplant recipient ([facility]); Kidney transplant recipient; Immunosuppressive management encounter following liver transplant ([facility]); Encounter for monitoring tacrolimus therapy; Vitamin D deficiency Discharge Disposition: Home or Self Care WITHOUT Home Care Services 04/16/2025 9:50 AM EST Office Visit [facility] Transplant at [address] [place] [address] Chris Orosco MD Liver transplant recipient ([facility]) (Primary Dx); Kidney transplant recipient; Encounter for monitoring tacrolimus therapy; Immunosuppressive management encounter following liver transplant ([facility]); Alcohol use disorder, severe, dependence ([facility]); Encounter for therapeutic drug monitoring; S/P liver transplant ([facility]); Hypomagnesemia; Hypertension, unspecified type; Gastroesophageal reflux disease, unspecified whether esophagitis present 04/16/2025 Social Work [facility] Transplant at [address] [place] [address] Kaylin Willard MSW 04/15/2025 Chart Note [facility] Transplant at [address] [place] [address] Marlene Ro MA 04/14 Labs entered from [facility] 04/07/2025 Telephone [facility] Transplant at [address] [place] [address] Maureen Pantoja, RN Results 04/07/2025 Refill [facility] Liver Transplant at [address] [place] [phone] Chris Orosco MD Encounter for therapeutic drug monitoring; S/P liver transplant (CMS-HCC); Hypomagnesemia; Kidney transplant recipient; Hypertension, unspecified type; Gastroesophageal reflux disease, unspecified whether esophagitis present 04/06/2025 Telephone [facility] Transplant at [address] [address] Mitzy Schneider MA 04/03/2025 Telephone [facility] Transplant at [address] [address] Maureen Pantoja, ЮЛИЯ Results 04/03/2025 Chart Note [facility] Transplant at [address] [address] Marlene Ro MA 04/03 Labs entered from [facility] 04/03/2025 Telephone [facility] Liver Transplant at [address] [address] Mitzy Schneider MA ask pt how much Mg he is taking / day; returning pt's phone call; follow up on plan; plan of care for patient; follow up on plan of care per dr. gonzalez 03/31/2025 Refill [facility] Transplant at [address] [place] [address] Harvey Domínguez III, MD 03/30/2025 Chart Note [facility] Transplant at [address] [place] [address] Marlene Ro MA 03/27 Labs entered from [facility] 03/24/2025 Telephone [facility] Transplant at [address] [place] [address] Maureen Pantoja, RN Results; Medication Dose Change 03/20/2025 Chart Note [facility] Transplant at [address] [place] [address] Marlene Ro MA 03/20 Labs entered from [facility] 03/19/2025 Telephone [facility] Liver Transplant at [address] [place] [address] Maureen Pantoja, RN Results 03/16/2025 Telephone [facility]ney Transplant at [address] [address] Lizeth Walden, ЮЛИЯ 03/16/2025 Chart Note [facility] Transplant at [address] [place] [address] Marlene Ro MA Magnesium Level from 03/1303/16/2025 Telephone [facility] Transplant at [address] [place] [address] Mitzy Schneider MA 03/13/2025 Telephone [facility] Transplant at [address] [place] [address] Mitzy Schneider MA Critical Lab Results 03/12/2025 Refill [facility] Transplant at [address] [place] [phone] Lydia Sanchez MD Encounter for therapeutic drug monitoring; S/P liver transplant (CMS-HCC); Hypomagnesemia; Kidney transplant recipient; Hypertension, unspecified type; Gastroesophageal reflux disease, unspecified whether esophagitis present 03/10/2025 Telephone [facility] Transplant at [address] [place] [address] Lizeth Walden, ЮЛИЯ 03/10/2025 Telephone [facility] Transplant at [address] [address] Maureen Pantoja, RN Results; Medication Dose Change 03/10/2025 Chart Note [facility] Transplant at [address] [address] Marlene Ro MA 03/10 Labs entered from [facility] Lab 03/10/2025 Telephone [facility] Transplant at [address] [address] Marlene Ro MA 03/10/2025 Telephone [facility] Transplant at [address] [address] Marisela Martinez MA Critical Lab Results 03/06/2025 Telephone [facility] Transplant at [address] [place] [address] Maureen Pantoja, RN Results 03/04/2025 Chart Note [facility] Transplant at [address] [place] [address] Marlene Ro MA 03/04 Labs entered from [facility] 03/02/2025 Refill [facility] [address] [place] [phone] Feliciano Gomez, EZEKIEL 03/02/2025 Telephone [facility]plant at [address] [place] [address] Marlene Ro MA 02/26/2025 Telephone [facility] at [address] [place] [address] Maureen Pantoja, ЮЛИЯ Results; Medication Dose Change 02/26/2025 Chart Note [facility] Transplant at [address] [place] [address] Marlene Ro MA 02/24 Labs entered from [facility] 02/25/2025 10:50 AM EDT Office Visit [facility] at [address] [place] [address] Bruno Gonzalez MD Kidney transplant recipient (Primary Dx); Neck pain with history of cervical spinal surgery; S/P liver transplant ([facility]) 02/25/2025 Refill [facility] Transplant at [address] [place] [phone] Lydia Sanchez MD Encounter for therapeutic drug monitoring; S/P liver transplant ([facility]); Hypomagnesemia; Kidney transplant recipient; Hypertension, unspecified type; Gastroesophageal reflux disease, unspecified whether esophagitis present 02/23/2025 Chart Note [facility] at [address] [place] [address] Marlene Ro MA 02/18 Labs entered from [facility] 02/23/2025 Telephone [facility] Transplant at [address] [place] [phone] Marlene Ro MA 02/17/2025 Telephone [facility] Transplant at [address] [place] [phone] Marlene Ro MA 02/13/2025 Telephone [facility] Transplant at [address] [place] [address] Marisela Martinez MA Results 02/12/2025 10:50 AM EDT Office Visit [facility] at [address] [place] [phone] Chris Orosco MD Liver transplant recipient ([facility]) (Primary Dx); History of systemic steroid therapy; Kidney transplant recipient; Immunosuppressive management encounter following liver transplant ([facility]); Encounter for monitoring tacrolimus therapy; Vitamin D deficiency; Encounter for therapeutic drug monitoring; S/P liver transplant ([facility]); Hypomagnesemia; Hypertension, unspecified type; Gastroesophageal reflux disease, unspecified whether esophagitis present; Alcohol use disorder; Immunosuppression ([facility]); Viral disease exposure 02/12/2025 Social Work [facility]plant at [address] [place] [address] Kaylin Willard MSW 02/12/2025 Telephone [facility] Transplant at [address] [place] [address] Maureen Pantoja, ЮЛИЯ Results 02/10/2025 Chart Note [facility] Trans[facility] at [address] [phone] Marlene Ro MA 02/10 Labs entered from [facility] from Last 3 Months Social History Tobacco [...] glasses of wine a days [facility] Utilities Answer Date Recorded In the past 12 months has [place], gas, oil, or water [email or web address] threatened to shut off services in your [...] 01/27/2026 01/27/2025, 0 10/27/2024, 10/08/2024 Renal Function/GFR 05/06/2026 05/06/2025, 1 06/23/2024, 04/14/2025, Additional history exists Immunization: DTaP/Tdap/Td ( 3 - Td or Tdap) 06/03/2028 06/03/2018, 09/13/2010 Hepatitis C Screening (MyChart) Completed 10/25/2024, 10/07/2024, 10/06/2024, Additional history exists HIV Screening Completed 11/25/2024, 10/12, 10/07/2024 Immunization: HPV (No Doses Required) Completed Procedures Procedure Name Priority Date/Time Associated Diagnosis Comments MAGNESIUM Routine 05/06/2025 10:05 AM EST RENAL FUNCTION PANEL W/O EGFR Routine 05/06/2025 10:05 AM EST CREATININE, URINE, RANDOM Routine 05/06/2025 10:05 AM EST URINALYSIS W/RFL TO MICROSCOPIC Routine 05/06/2025 10:05 AM EST CBC AND DIFFERENTIAL Routine 05/06/2025 10:05 AM EST URINE PROTEIN, TOTAL, RANDOM (W/O CREATININE) Routine 05/06/2025 10:05 AM EST HEPATIC FUNCTION PANEL Routine 10:05 AM EST TACROLIMUS LEVEL Routine 04/22/2025 9:59 AM EST PHATIDYLETHANOL (PETH) Routine 9:59 AM EST MAGNESIUM Routine 04/22/2025 9:59 AM EST RENAL FUNCTION PANEL W/O EGFR Routine 04/22/2025 9:59 AM EST CREATININE, URINE, RANDOM Routine 04/22/2025 9:59 AM EST URINALYSIS W/RFL TO MICROSCOPIC Routine 04/22/2025 9:59 AM EST CBC AND DIFFERENTIAL Routine 04/22/2025 9:59 AM EST URINE PROTEIN, TOTAL, RANDOM (W/O CREATININE) Routine 04/22/2025 9:59 AM EST HEPATIC FUNCTION PANEL Routine 9:59 AM EST URINE CULTURE Routine 04/22/2025 9:59 AM EST DXA BONE DENSITY AXIAL SKELETON Routine 04/16/2025 11:25 AM EST History of systemic steroid therapy Liver transplant recipient ([facility]) Kidney transplant recipient Immunosuppressive management encounter following liver transplant ([facility]) Encounter for monitoring tacrolimus therapy Vitamin [...] URINE, RANDOM Routine 03/20/2025 7:15 AM EST URINE PROTEIN, TOTAL, RANDOM [...] 11:29 AM EDT CREATININE, URINE, RANDOM Routine 03/04/2025 11:29 AM EDT URINALYSIS W/RFL [...] HEPATIC FUNCTION PANEL Routine 9:33 AM EDT HEMOGLOBIN A1C Routine 01/27/2025 8:20 [...] Random (w/o Creat) (05/06/2025 10:05 AM EST) Only the most recent of10 resultswithin the time period is included. Total Protein, Ur 14.0 Urine Narrative Resulting Agency Comment [facility] Provider Result Type Result Critical access hospital URINE ORDERABLES Final Re sult * Hepatic Function Panel (05/06/2025 10:05 AM EST) Only the most recent of11 resultswithin the time period is included. Bilirubin, Direct 0.3 Bilirubin, Indirect 0.6 Alkaline Phosphatase 69 ALT 71 AST 82 Total Bilirubin 0.9 Total Protein 7.1 Plasma Narrative Resulting Agency Comment [facility] Provider Result Type Result Critical access hospital LAB BLOOD ORDERABLES Denisse l Result * Creatinine, urine, random (05/06/2025 10:05 AM EST) Only the most recent of10 resultswithin the time period is included. Creatinine, Urine 164 Urine Narrative Resulting Agency Comment [facility] Provider Result Type Result Critical access hospital URINE ORDERABLES Final Re sult * Urinalysis w/Rfl to Microscopic (05/06/2025 10:05 AM EST) Only the most recent of11 resultswithin the time period is included. Glucose, UA Negative Negative Ketones, UA Negative Negative Blood, UA Negative Negative Bilirubin, UA Negative Negative Urobilinogen, UA Normal Normal Protein, UA Negative Negative Nitrite, UA Negative Negative pH, UA 6.0 4.5 - 8.0 Specific [place], UA 1.020 1.005 - 1.030 Clarity, UA Clear Clear Color, UA Yellow Light Yellow, Yellow Urine Narrative Resulting Agency Comment [facility] Provider Result Type Result Stat us Historical Provider MD URINE ORDERABLES Final Re sult * (ABNORMAL) CBC and differential (05/06/2025 10:05 AM EST) Only the most recent of11 resultswithin the time period is included. [facility] Hemoglobin 15.3 13.5 - 17.5 g/dL Hematocrit [...] 7.7 10^3/mL Blood Narrative Resulting Agency Comment [facility] LAB BLOOD ORDERABLES Denisse l Result * (ABNORMAL) Magnesium (05/06/2025 10:05 AM EST) Only the most recent of12 resultswithin the time period is included. [facility] Magnesium 1.4(A) 1.6 - 2.4 mg/dL Plasma Narrative Resulting Agency Comment [facility] LAB BLOOD ORDERABLES Denisse l Result * (ABNORMAL) Renal Function Panel w/o EGFR (05/06/2025 10:05 AM EST) Only the most recent of11 resultswithin the time period is included. [facility] Glucose 104 BUN 13 CO2 20 13 - 22 mmol/L Creatinine 1.90 Potassium 3.8 Sodium 137 Chloride 100 Phosphorus 5.1(A) 2.5 - 4.9 mg/dL Calcium 9.3 EGFR 39 mg/dL Albumin 4.8 3.5 - 5.0 g/dL Blood Narrative Resulting Agency Comment [facility] Provider MD LAB BLOOD ORDERABLES Denisse l Result * Phatidylethanol (PEth) (04/22/2025 9:59 AM EST) Only the most recent of9 resultswithin the time period is included. Phosphatidylethanol (PEth) Positive 296 Whole Blood Result [facility] Provider MD LAB BLOOD ORDERABLES Denisse l Result * Tacrolimus level (04/22/2025 9:59 AM EST) Only the most recent of10 resultswithin the time period is included. Tacrolimus Lvl 12.7 6 - 15 ng/mL Whole Blood Result [facility] Provider MD LAB BLOOD ORDERABLES Denisse l Result * Urine culture (04/22/2025 9:59 AM EST) Only the most recent of6 resultswithin the time period is included. Urine Culture, Comprehensive see note column URINE SPECIMEN / Unknown Result [facility] Provider MD MICROBIOLOGY - GENERAL OR DERABLES Final Result * DXA bone density axial skeleton [...] of systemic steroid therapy; Liver transplant recipient (CMS-HCC); Kidney transplant recipient; Immunosuppressive management encounter following liver transplant (CMS-HCC); Immunosuppressive management encounter following liver transplant (CMS-HCC); Encounter for monitoring tacrolimus therapy; Encounter for monitoring tacrolimus therapy; Vitamin D deficiency TECHNICAL: Bone mineral density analysis was performed on a Play[employer]ore[employer] scanner. ARTIFACTS: None COMPARISON: No prior studies [...] mineral density analysis was performed on a [employer] iDXAscanner. ARTIFACTS: None COMPARISON: No prior studies [...] MD IMG DEXA ORDERABLES Final Result * BK Virus Quantitative by PCR, Blood (03/20/2025 7:15 AM EST) Only the most recent of2 resultswithin the time period is included. BK Virus Quant PCR PL negative Plasma Historical Provider LAB BLOOD ORDERABLES Denisse l Result * Cytomegalovirus DNA, Quant, RT PCR (03/10/2025 9:29 AM EDT) Only the most recent of2 resultswithin the time period is included. CMV Quant DNA PCR (Plasma) Negative Plasma Result [facility] Historical Provider MD LAB BLOOD ORDERABLES Denisse l Result * Vitamin D 25 hydroxy (03/04/2025 11:29 AM EDT) Vit D, 25-Hydroxy 38.4 Serum Narrative Resulting Agency Comment [facility] Result [facility] Historical Provider MD LAB BLOOD ORDERABLES Denisse l Result * Hemoglobin A1c (01/27/2025 8:20 PM EDT) Hemoglobin A1C 4.0 4.0 - 5.6 % 01/27/2025 11:49 PM EDT [facility] Comment: Hemoglobin A1c Interpretation Guidelines: [...] PM EDT 01/27/2025 8:57 PM EDT Narrative [facility] - 01/27/2025 11:49 PM EDT A1C project?->Yes Result [facility] Pamela JACOME LAB BLOOD ORDERABLES Final Res ult [facility] [address] [place] [address], [facility] * HIV-1 RNA, Quantitative, PCR (11/25/2024 8:42 AM EDT) HIV 1 Copies Not Detected copies/mL 11/26/2024 10:57 AM EDT [facility] Comment:Test methodology for HIV-1 RNA quantification is an FDA-approved nucleic acid amplification assay. The Lower Limit of Quantitation (LLoQ) is 20 copies/mL. The linear range is 20- to 10,000,000 copies/mL. The Limit of Detection (LoD) is 13.2 copies/mL. The reference range is Not Detected. HIV [id number] See Note [id number] /mL 11/26/2024 10:57 AM EDT [facility] Comment:HIV-1 RNA not detect ed. Plasma 11/25/2024 8:42 AM EDT 11/25/2024 10:59 AM EDT [facility] - 11/26/2024 10:57 AM EDT One time lab order to be collected with next set of standing liver transplant labs. UNOS requirement. Please fax all results to [phone]. Call critical results to [phone]. us Harvey Domínguez III, MD LAB BLOOD ORDERABLE S Final Result Performing Organization Address City/[facility]/ZIP Co de Phone Number [facility] [address] * Hepatitis C Antibody (10/25/2024 10:17 PM EDT) HCV Ab Nonreactive Nonreactive 10/25/2024 11:16 PM EDT [facility] Comment:Health Department no tified in accordance with reportable infectious disease guidelines. Serum 10/25/2024 10:1 7 PM EDT 10/25/2024 10:17 PM EDT [facility] - 10/25/2024 11:16 PM EDT Antibodies to HCV not detected; does not exclude the possibility of exposure to HCV. us Aysha Gill MD LAB BLOOD ORDERABLES F inal Result [facility] [address] * TSH (Thyroid Stimulating Hormone) (10/07/2024 6:37 PM EDT) TSH 0.81 0.45 - 4.12 uIU/mL 10/07/2024 8:17 PM EDT [facility] Serum 10/07/2024 6:37 PM EDT 10/07/2024 6:50 PM EDT us Gerri Peterson MD LAB BLOOD ORDERABLES Final Resu lt [facility] [address] [place] [address], [facility] from Last 3 Months or Most Recently Relevant to Health Maintenance Insurance [employer] Member Subscriber Plan / Payer ( fective 2025-Present) Name:Julien Anderson Relation to Subscriber:Spouse Name:HEATHER SOLO Date of :1989 Address: [address] [place] [address] Payer ID:[id number] (NAIC) Type:PPO Address: [place] [id number] [employer] [place] [address] Advance Directives For more information, please contact: [phone] * Full Code (Latest Code Status on [...] 9:42 AM 09/09/2024 10:30 PM Care Teams Carburetor Repairer Relationship Specialty Start Date End Date Enedina Mcguire NP [address] [place] [address] PCP - General Internal Medicine 10/05/24 Maureen Pantoja, ЮЛИЯ Txp Post Coordinator Transplant Hepatology 10/28/24 Chris Orosco MD [address] [place] [address] [address] [facility] [place] [address] Consulting Physician Transplant Hepatology 02/26/25
--- OUTSIDE RECORDS SUMMARY | 2025-05-13 10:04 | XMS_ITS ---
Author Organization [facility] Address [facility] [place] [address] Care Team Providers Care Door Clamp Operator Name Role Phone Enedina Mcguire NP Primary Care Provider + [phone] Maureen Pantoja RN Unavailable Unavail able Chris Orosco MD Unavailable [phone] Transplant Episode Liver Recipient [facility] ([place], [place]) - [facility] Organ Received: Liver Transplanted on 10/26/2024 Marked as Active Follow-up on 10/26/2024 Liver CoordinatorMaureen Pantoja RN Phone: N/A Fax: N/A Email: N/A [place] Organ Diagnosis Organ Primary Contributory Liver Alcohol-Associated [...] N/A Chris Orosco MD Referring Physician Txp Apron Man [phone] N/A Maureen Pantoja RN Txp Post Coordinator N/A N/A N/A NUBIA Barros Txp Optical Scientist N/A N/A N/A Harvey Domínguez III, MD Txp Surgeon [phone] N/A Mary Butler RN Txp Pre Coordinator N/A N/A N/A Events Post-Transplant Pre-Transplant Admitted: 10/25/2024 Referred: 08/13/2024 Transplanted: 10/26/2024 Evaluation began: Discharged: 11/02/2024 Committee: 10/14/2024 Center waitlisted: Pending Checklist Tasks (Due on or before 06/13/2025) Name Due Date Attached Appoint ment Social Work Consult 01/05/2025 Appointments (04/12/2025 - 06/13/2025) When With Visit Type Description 04/16/2025 Txp Tabatha - ShaunnaDeepti, A Established Patient Liver transplant recipient ([facility]) (Primary Dx); Kidney transplant recipient; Encounter for monitoring tacrolimus therapy; Immunosuppressive management encounter following liver transplant ([facility]); Alcohol use disorder, severe, dependence ([facility]-H[facility]); Encounter for therapeutic drug monitoring; S/P liver transplant ([facility]); Hypomagnesemia; Hypertension, unspecified type; Gastroesophageal reflux disease, unspecified whether esophagitis present
--- OUTSIDE RECORDS SUMMARY | 2025-05-13 10:04 | XMS_ITS | Referral Summary ---
Author Organization [facility] ([place], [place], [place], [place], [place]) Address [address] [place] [address] Care Team Providers Care Barrel Bridge Assembler Name Role Phone Unavailable Primary Care [...]
[2025-05-13 10:17] LABS: Microscopic, Urine URINE MICROSCOPIC (MICROSCOPIC)
[2025-05-13 10:51] LABS: Bilirubin,Urine Negative (Negative); Color,Urine YELLOW (Yellow); Glucose,Urine (UA) Negative (Negative); Ketones,Urine Negative (Negative); Leukocyte Esterase,Urine Negative (Negative); PH,Urine 7.0 (5.0-8.5); Protein,Urine Negative (Negative); Specific Gravity, Urine 1.010 (1.005-1.030); Urobilinogen,Urine 0.2 EU/dl (0.2)
[2025-05-13 10:52] LABS: Hematocrit 42.1 % (42.0-52.0); Hemoglobin 14.9 g/dL (14.1-18.0); Immature Granulocytes % 0.5 %; Mean Corpuscular HGB Conc 35.4 g/dL (31.8-35.4); Mean Corpuscular Hemoglobin 33.9 pg (27.0-31.2); Mean Corpuscular Volume 95.7 fl (80-94); Nucleated Red Blood Cells % 0 %; Platelet Count 143 K/mm3 (142-424); Red Blood Count 4.40 M/mm3 (4.60-6.20); Red Cell Distribution Width-SD 47.4 fL; White Blood Count 5.7 K/mm3 (4.8-10.8)
[2025-05-13 11:05] LABS: Bacteria,Urine Trace /lpf; WBC,Urine Occasional #/hpf (0-3)
[2025-05-13 11:15] LABS: Albumin Level 4.3 g/dl (3.5-5.0); Chloride 102 mmol/L (98-107); Potassium 3.7 mmoL/L (3.5-5.1); Sodium 138 mmol/L (136-145)
[2025-05-13 11:17] LABS: Blood Urea Nitrogen 9 mg/dl (9-20); Creatinine,Serum 1.40 mg/dl (0.66-1.25); Estimated Glomerular Filt Rate 56 ml/min (>60); GFR (African American) 68 ML/MIN (>60)
[2025-05-13 11:18] LABS: Alanine Aminotransferase 88 U/L (12-78); Alkaline Phosphatase 63 U/L (38-126); Anion Gap 12.7 mEq/L (5-15); Aspartate Amino Transferase 93 U/L (17-59); Bilirubin,Direct 0.3 mg/dl (0.0-0.4); Bilirubin,Indirect 0.5 mg/dL (0.0-0.9); Bilirubin,Total 0.8 mg/dl (0.2-1.3); Bilirubin,Unconjugated 0.6 mg/dL (0.0-1.1); Calcium 9.0 mg/dl (8.4-10.2); Carbon Dioxide 27 mmol/L (22.0-30.0); Glucose 114 mg/dl (74-100); Phosphorous 3.3 mg/dl (2.5-4.5); Total Protein,Serum 6.0 g/dl (6.3-8.2)
[2025-05-13 11:19] LABS: Magnesium 1.2 mg/dl (1.6-2.3)
[2025-05-15 22:31] LABS: Tacrolimus (FK506), Blood 9.0 ng/mL (5.0-20.0)
== END 2025-05-13 23:59 | disposition home or self-care (01) ==
LOC: LAB 09:58
PROVIDERS: PCP Nurse Practitioner Family; Visit Provider Surgery
DX: D84.821 Immunodeficiency due to drugs (principal); F10.90 Alcohol use, unspecified, uncomplicated; Z94.4 Liver transplant status; Z79.60 Long term (current) use of unspecified immunomodulators and immunosuppressants; Z94.0 Kidney transplant status
CPT/HCPCS: 36415; 80069; 80076; 80197; 80321; 81001; 82570; 83735; 84156; 85025; 87086